=== PATIENT | female | born 1955 | race American Indian/Alaskan Native ===

== ENCOUNTER 2021-10-29 13:43 | Inpatient (IN) | payer SELFPAY ==
[2021-10-29] MEDS ORDERED: LIP THERAPY VASELINE TP PRN (14:29)
[2021-10-29] MEDS ORDERED: LACTATED RINGERS 1,000 ML IV ONE (14:32)
[2021-10-29] MEDS ORDERED: ROCURONIUM 50 MG/5 ML INJ IV ONE (14:32)
[2021-10-29] MEDS ORDERED: ETOMIDATE 20 MG/10 ML INJ IV ONE (14:32)
--- NOTE | 2021-10-29 14:38 | Emergency Department Report ---
ED CPR HPI - General Chief Complaint: Cardiac Arrest/CPR Stated Complaint: STEMI Time Seen by Provider: 10/29/21 14:28 Source: EMS (Verbal report received from emergency medical services. EMS documentation not available at time of chart dictation ), RN notes reviewed Mode of arrival: Stretcher Limitations: Altered Mental Status, Physical Limitation - History of Present Illness Initial Comments: The patient was evaluated in the emergency department for symptoms described in the history of present illness. He/she was evaluated in the context of the global COVID-19 pandemic, which necessitated consideration that the patient might be at risk for infection with the virus that causes COVID-19. Institutional protocols and algorithms that pertain to the evaluation of patients at risk for COVID-19 are in a state of rapid change based on information released by regulatory bodies including the CDC and federal and state organizations. These policies and algorithms were followed during the patient's care in the emergency department. Please note that these policies, procedures and recommendations changed on a rapid basis. The patient is a 66-year-old female. She is brought to the hospital by emergency medical services as an out of hospital cardiac arrest. History is obtained entirely from verbal report from EMS. As per verbal report from EMS, patient collapsed while she was at [facility]. It is not known if the patient was having any symptoms while at [facility]. EMS reports that bystanders started CPR. EMS reports that upon their initial arrival, the patient is not having a shockable rhythm, and is pulseless. A David airway is placed by EMS, she received aggressive CPR, standard ACLS medications, and has return of spontaneous circulation after around 5 to 7 minutes of initial ER resuscitation. EMS reports that post resuscitation, patient has a persistent coma, and she is biting on endotracheal tube, and they have started her on supplemental epinephrine for hemodynamic support. Upon arrival to this emergency room, the patient has a GCS of 3, is noted to be biting the endotracheal tube, his pupils that are midpoint and dilated. In addition, she has copious vomitus and gastric secretions in her oropharynx, mouth, and neck. The David airway is deflated, and removed. Patient noted to be biting down and clenching. She is placed on a nasal cannula at 15 L/min, and receives [id number]-nkib ventilation. She is induced with 20 mg of etomidate, and paralyzed with 100 mg of rocuronium. Video laryngoscopy is performed with a curved S4 video laryngoscope blade, and a 7.5 endotracheal tube was easily inserted into the trachea under direct visualization and without difficulty. Patient remains comatose at this time. No additional history is available at this time. MD Complaint: other (Patient collapsed while at [facility] as per verbal report from EMS) -: minute(s) Place: other Bystander CPR Performed: Yes AED Applied by Bystander/Electronics Lead: No Initial Findings in the Field: PEA Treatments Prior to Arrival: other airway device, chest compressions, epinephrine mgs # - Related Data Allergies Allergy/AdvReac Type Severity Reaction Status Date / Time No Known Allergies Allergy Verified 10/29/21 14:01 ED Review of Systems ROS: Stated complaint: STEMI Other details as noted in HPI Comment: Unobtainable due to pts medical conditions ED Past Medical Hx - Past Medical History Previous Medical History?: No - Surgical History Past Surgical History?: No - Social History Smoking Status: Unknown if ever smoked Substance Use Type: None ED Physical Exam - General Limitations: Altered Mental Status, Physical Limitation General appearance: obtunded, obese - Head Head exam: Present: atraumatic, normocephalic - Eye Eye exam: Present: other (Pupils are midpoint and do not react to light.) - ENT ENT exam: Present: normal exam, normal orophraynx, mucous membranes moist, normal external ear exam, other (Copious secretions noted in the oropharynx) - Neck Neck exam: Present: normal inspection - Respiratory Respiratory exam: Present: respiratory distress, rhonchi - Cardiovascular Cardiovascular Exam: Present: tachycardia, JVD. Absent: bradycardia, rubs, gallop - GI/Abdominal GI/Abdominal exam: Present: soft. Absent: distended, tenderness, guarding, rebound, rigid, pulsatile mass - Rectal Rectal exam: Present: normal inspection - External exam: Present: normal external exam - Extremities Exam Extremities exam: Present: normal inspection, other (1+ femoral pulses noted in the bilateral upper and lower extremities. 1+ radial pulses noted in the bilateral upper and lower extremities. There is no long bony tenderness. The muscular compartments are soft. The pelvis is stable.). Absent: tenderness - Back Exam Back exam: Present: normal inspection. Absent: tenderness, CVA tenderness (R), CVA tenderness (L), paraspinal tenderness, vertebral tenderness - Neurological Exam Neurological exam: Present: altered, other (GCS of 3) - Psychiatric Psychiatric exam: Present: normal affect, normal mood - Skin Skin exam: Present: warm, dry, intact, normal color. Absent: rash ED Course Vital Signs 10/29/21 10/29/21 10/29/21 14:03 14:22 14:30 Pulse Rate 130 H 122 H Respiratory 16 Rate Blood Pressure 166/114 Blood Pressure 113/53 [Left] O2 Sat by Pulse 96 97 96 Oximetry - Reevaluation(s) Reevaluation #1: 10/29/21 15:41 Differential diagnosis, including but not limited to: Acute coronary syndrome, pulmonary embolism, intracranial hemorrhage, electrolyte derangement, thyroid derangement, pneumonia, urinary tract infection Assessment and plan: 66-year-old female status post out of hospital cardiac arrest with return of spontaneous circulation, and a persistent, with a GCS of 3, although biting at endotracheal tube prior to paralysis. This hospital does not have a postarrest hypothermia protocol. Laboratory studies pending. Leukocytosis may be a stress reaction, but uncertain if infectious and pathology. Patient will be treated with broad-spectrum antibiotics empirically, will receive 30 cc/kg bolus of lactated Ringer's calculated for ideal body weight given that this patient is morbidly obese. CT scan of the brain, cervical spine and chest have been obtained, and results are pending. Patient will be maintained on vasopressor support. Critical care physician, Dr. Hunter will follow in consultation. Discussed the patient's history, physical, laboratory studies and imaging studies and overall clinical impression and plan of care. We will admit patient to the medical service once her initial diagnostic work-up has been completed, presuming we do not detect a condition that would require transfer for services not available at this facility. Reevaluation #2: 10/29/21 15:45 151 lbs [place] Body Weight Equivalent to 68 kg Actual body weight is 165% (1.6x) ideal body weight 10/29/21 16:16 Lactic acidosis appreciated. Elevated troponin is likely a type II troponin leak. CT scan of the brain and cervical spine negative for acute findings. Hospital physician, Dr. Smith to admit patient to the ICU. 10/29/21 16:25 2 sisters at the bedside. They advised that this patient has a history of hypertension, is visiting from [place], and is COVID-19 vaccinated. They reports that the patient has no allergies to medicines. They are updated on the patient's prognosis and plan of care. They are currently at the bedside. They have articulated understanding 10/29/21 17:10 Hypokalemia will be addressed. We will withhold insulin therapy for hyperglycemia, given hypokalemia. Transaminitis is likely secondary to cardiac arrest. Synthetic function is preserved. Defer to inpatient team to further follow this up. - Central Line Placement Right IJ Consent Obtained: emergent situation (Emergency situation) Time Out Performed: Yes Patient Placed on Monitor/Pulse Ox: Yes MD Prep: mask, gown, gloves Central Line Prep: Chlorhexidine scrub Local Anesthesia Used: Lidocaine 1% Amount of Anesthesia Used (mls): 4 Ultrasound Used for Placement: Yes Central Line Lumen Inserted: triple Reason for Insertion: High Alert Medication Bloods Obtained for Lab: Yes Central Line Position: good blood return, all ports aspirated, flus, sutured in place with 2-0 Dressing Applied: Tegaderm Post Procedure X-Ray: other (X-ray of the chest shows no pneumothorax, but unusual position of catheter tip. Subsequent CT of the chest confirms appropriate catheter position) Patient Tolerated Procedure: well Complications: none Additional Comments: Patient prepped and draped in typical maximal sterile fashion. Using ultrasound guidance, right-sided internal jugular vein is cannulated with an 18-gauge needle, with 3 inch plastic catheter, guidewire, 0.032 x 60 cm, J-tip with a 3 mm radius is then inserted into the guiding catheter, and appropriate luminal placement is confirmed with real-time fqcoc-to-yawm ultrasound guidance. A stab incision is made with an 11-gauge blade, and then incision is dilated. The 7 [place] triple-lumen catheter has each of the 3 ports flushed with sterile saline in advance of placement. Then, a 7 [place] triple-lumen catheter is inserted over the guidewire, and sutured to the skin. Real-time ultrasound guidance confirms appropriate luminal placement. Ports are aspirated easily, and flushed easily. Blue Biopatch is then affixed to the skin, and Tegaderm is applied to the skin. This patient tolerated the procedure well, and without obvious complication. Blood loss estimated at less than 50 cc. While initial chest x-ray suggested unusual position of the central line, CT of the chest confirmed appropriate placement in the SVC. This is received from verbal communication from the interpreting radiologist. No untoward complications were noted.. - Intubation Time Out Performed: No (Emergency situation) Sedative: Etomidate Mg Given: 20 Paralytic: Rocuronium Mg Given: 100 Laryngoscope: fiberoptic video scope Size: 4 Assist Device Used: fiberoptic device ET Tube Size: 7.5 Tube Secured Depth (cm): 23 Tube Secured Location: teeth Tube Placement Confirmation: visualized tube passing t, equal breath sounds bilat, no breath sounds over epi, confirmation by capnometr Patient Tolerated Procedure: well Intubation Complications: none Additional Comments: Patient placed on nasal cannula at 15 L/min. Receives [id number]-kntmq-[id number] ventilation. She presents with evidence of aspiration which is present on arrival, manifest by copious oral secretion in the oropharynx and mouth. She is aggressively suctioned, and under direct visualization, a 7.5 endotracheal tube is easily inserted into the trachea without difficulty. ED Medical Decision Making - Lab Data Result diagrams: 10/29/21 15:10 10/29/21 15:10 Vital Signs 10/29/21 10/29/21 14:03 14:22 Pulse Rate 130 H Respiratory 16 Rate Blood Pressure 113/53 [Left] O2 Sat by Pulse 96 97 Oximetry Rectal temperature 98 degrees Lab Results 10/29/21 10/29/21 10/29/21 Range/Units 15:10 15:10 15:10 WBC 27.8 H (4.5-11.0) K/mm3 RBC 5.02 (3.65-5.03) M/mm3 Hgb 13.4 (10.1-14.3) gm/dl Hct 42.1 (30.3-42.9) % MCV 84 (79-97) fl MCH 27 L (28-32) pg MCHC 32 (30-34) % RDW 15.1 (13.2-15.2) % Plt Count 291 (140-440) K/mm3 PT 13.6 (12.2-14.9) Sec. INR 0.94 (0.87-1.13) Plasma/Serum Alcohol < 0.01 (0-0.07) % - EKG Data -: EKG Interpreted by Vt EKG shows normal: sinus rhythm Rate: tachycardia - EKG Data When compared to previous EKG there are: previous EKG unavailable 10/29/21 15:43 EKG #2 is interpreted at 14: 48 This is a sinus tachycardia, with a rate of 143 bpm. There is a left axis deviation. There are PVCs noted. The QTC is 494 ms. There appears to be a normal P wave axis. May have intermittent runs of ectopic atrial tachycardia simultaneously. This is not a STEMI - Radiology Data Radiology results: pending, report reviewed, image reviewed [address] [address] XRay Report Signed Patient: WALLACE ISAAC MR#: [id number] : 09/14/1995 Acct:[id number] Age/Sex: 26 / F ADM Date: 10/29/21 Loc: ED Attending Dr: Ordering Physician: PRATEEK GALLO MD Date of Service: 10/29/21 Procedure(s): XR chest 1V ap Accession Number(s): [id number] cc: PRATEEK GALLO MD Fluoro Time In Minutes: CHEST 1 VIEW 10/29/2021 2:16 PM INDICATION / CLINICAL INFORMATION: Dyspnea. COMPARISON: 08/21/20, 02/28/20, and 02/19/20 FINDINGS: SUPPORT DEVICES: None. HEART / MEDIASTINUM: No change in the marked enlargement of the cardiac silhouette. Mild pulmonary venous vascular congestion. LUNGS / PLEURA: No significant pulmonary or pleural abnormality. No pneumothorax. ADDITIONAL FINDINGS: No significant additional findings. IMPRESSION: 1. Stable marked cardiomegaly part of which may represent pericardial effusion. Mild pulmonary venous vascular congestion. No overt pulmonary edema. Signer Name: Angel Dudley MD Signed: 10/29/2021 2:56 PM Workstation Name: [id number] Transcribed By: DT Dictated By: Davonte Dudley MD Electronically Authenticated By: Davonte Dudley MD Signed Date/Time: 10/29/21 1456 DD/ [address] [address] Cat Scan Report Signed Patient: DUNG TOBIN MR#: [id number] : 1955 Acct:[id number] Age/Sex: 66 / F ADM Date: 10/29/21 Loc: ED Attending Dr: Order ing Physician: PRATEEK GALLO MD Date of Service: 10/29/21 Procedure(s): CT angio chest Accession Number(s): [id number] cc: PRATEEK GALLO MD CTA CHEST WITH CONTRAST INDICATION / CLINICAL INFORMATION: cardiac arrest. TECHNIQUE: Axial CT images were obtained through the chest after injection of 85 mL Omnipaque 350 IV contrast. 3 plane MIP and/or 3D reconstructions were produced. All CT scans at this location are performed using CT dose reduction for ALARA by means of automated exposure control. COMPARISON: Chest radiograph earlier on the same date. FINDINGS: Quality of the study is fair due to suboptimal contrast enhancement of the pulmonary arteries. PULMONARY EMBOLUS: None. THORACIC AORTA: No significant abnormality. HEART: Mildly enlarged. CORONARY ARTERY CALCIFICATION: Absent -- None. MEDIASTINUM / ASHLEY: Right jugular central line is present in the superior vena cava. Endotracheal and esophagogastric tubes are in expected position. PLEURA: No pleural effusion. No pneumothorax. LUNGS: Patchy airspace consolidation in the superior segment of the right lower lobe, superior segment of the left lower lobe, and posterior segment of the left upper lobe is better seen on CT. ADDITIONAL FINDINGS: None. UPPER ABDOMEN: Bilateral nonobstructing intrarenal stones. SKELETAL STRUCTURES: No significant osseous abnormality. IMPRESSION: 1. No CT evidence for pulmonary embolism. 2. Bilateral airspace consolidation which may represent pneumonia, possibly aspiration. Signer Name: Angel Dudley MD Signed: 10/29/2021 3:44 PM Workstation Name: [id number] Transcribed By: MINDY Dictated By: Davonte Dudley MD Electronically Authenticated By: Davonte Dudley MD Signed Date/Time: 10/29/21 1544 DD/ [address] SCAN OF THE HEAD: INDICATION / CLINICAL INFORMATION: 66 years Female; Altered Mental Status. TECHNIQUE: Routine CT head without contrast. All CT scans at this location are performed using CT dose reduction for ALARA by means of automated exposure control. COMPARISON: None. FINDINGS: BRAIN / INTRACRANIAL CONTENTS: No acute hemorrhage, mass effect, midline shift, hydrocephalus, or acute, large territorial infarct. No chronic infarct or encephalomalacia. Normal brain volume and ventricular/sulcal size for age. Low- attenuation white matter lesions in both cerebral hemispheres probably due to chronic small vessel disease. Brainstem and cerebellar hemispheres are normal. CRANIOCERVICAL JUNCTION: No significant abnormality. ORBITS: No significant abnormality of visualized orbits. SINUSES / MASTOIDS: No significant abnormality of the visualized paranasal sinuses or mastoid air cells. ADDITIONAL FINDINGS: None. IMPRESSION: No acute focal parenchymal lesion in the brain Signer Name: Evette Gomez MD Signed: 10/29/2021 3:00 PM Workstation Name: [id number] Exam: CT cervical spine History: ams; Technique: Contiguous thin cut axial images obtained through the cervical spine. Sagittal and coronal reconstructions performed by the technologist. All CT scans at this location are performed using CT dose reduction for ALARA by means of automated exposure control. Findings: No priors. There is no evidence of fracture or traumatic subluxation. Vertebral bodies are normal in height and alignment. Intervertebral disc spaces are well-maintained. No significant degenerative change seen in the uncinate or facet joints. No significant canal stenosis or osseous foraminal narrowing. Surrounding soft tissues are grossly normal. Impression: No signs of acute bony trauma to the cervical spine. Signer Name: Evette Cramer MD Signed: 10/29/2021 3:03 PM Workstation Name: [id number] Critical Care Time: Yes Critical care time in (mins) excluding proc time.: 74 Critical care attestation.: If time is entered above; I have spent that time in minutes in the direct care of this critically ill patient, excluding procedure time. ED Disposition Clinical Impression: Cardiac arrest, SIRS (systemic inflammatory response syndrome), Aspiration pneumonitis, Hypokalemia, Transaminitis Disposition: 09 ADMITTED INPATIENT Is pt being admited?: Yes Condition: Critical
--- NOTE | 2021-10-29 15:25 | XRay Report ---
CHEST 1 VIEW 10/29/2021 2:35 PM INDICATION / CLINICAL INFORMATION: ETT placement. COMPARISON: None available. FINDINGS: SUPPORT DEVICES: Endotracheal tube has been placed with the tip 3.9 cm above the vikas. Esophagogast zion tube has been placed with the tip in the proximal stomach. Right jugular central line has been pl aced with the tip projecting over the superior SVC directed toward the midline. HEART / MEDIASTINUM: Heart is upper normal size. Bilateral pulmonary artery enlargement. LUNGS / PLEURA: No significant pulmonary or pleural abnormality. No pneumothorax. ADDITIONAL FINDINGS: No significant additional findings. IMPRESSION: 1. Endotracheal tube in expected position. Esophagogastric tube in expected position. 2. Right jugular central line with the tip directed toward the midline. Exact location is uncertain. IMPORTANT FINDING: Central line Time of Communication (IT SERVICE TECHNICIAN/CDT): 2:20 PM Licensed Practitioner Receiving Report: Dr. Newberry in the ED Signer Name: Angel Dudley MD Signed: 10/29/2021 3:21 PM Workstation Name: [id number]
[2021-10-29 15:26] LABS: Hematocrit 42.1 % (30.3-42.9); Hemoglobin 13.4 gm/dl (10.1-14.3); Mean Corpuscular HGB Conc 32 % (30-34); Mean Corpuscular Volume 84 fl (79-97); Platelet Count 291 K/mm3 (140-440); Red Blood Count 5.02 M/mm3 (3.65-5.03); Red Cell Distribution Width 15.1 % (13.2-15.2)
[2021-10-29 15:42] LABS: INR 0.94 (0.87-1.13)
[2021-10-29 15:43] LABS: Partial Thromboplastin Time 31.5 Sec. (24.2-36.6)
[2021-10-29] MEDS ORDERED: LACTATED RINGERS 1,040 ML IV ONE (15:45)
[2021-10-29] MEDS ORDERED: CEFEPIME/NS 1 GM/100 ML 1 GM/100 ML BAG IV ONE (15:45)
[2021-10-29] MEDS ORDERED: VANCOMYCIN/NS 1 GM/250 ML 1 GM/250 ML BAG IV ONE (15:45)
--- NOTE | 2021-10-29 15:49 | Cat Scan Report ---
CTA CHEST WITH CONTRAST INDICATION / CLINICAL INFORMATION: cardiac arrest. TECHNIQUE: Axial CT images were obtained through the chest after injection of 85 mL Omnipaque 350 IV contrast. 3 plane MIP and/or 3D reconstructions were produced. All CT scans at this location are perf ormed using CT dose reduction for ALARA by means of automated exposure control. COMPARISON: Chest radiograph earlier on the same date. FINDINGS: Quality of the study is fair due to suboptimal contrast enhancement of the pulmonary arteri es. PULMONARY EMBOLUS: None. THORACIC AORTA: No significant abnormality. HEART: Mildly enlarged. CORONARY ARTERY CALCIFICATION: Absent -- None. MEDIASTINUM / ASHLEY: Right jugular central line is present in the superior vena cava. Endotracheal and esophagogastric tubes are in expected position. PLEURA: No pleural effusion. No pneumothorax. LUNGS: Patchy airspace consolidation in the superior segment of the right lower lobe, superior segmen t of the left lower lobe, and posterior segment of the left upper lobe is better seen on CT. ADDITIONAL FINDINGS: None. UPPER ABDOMEN: Bilateral nonobstructing intrarenal stones. SKELETAL STRUCTURES: No significant osseous abnormality. IMPRESSION: 1. No CT evidence for pulmonary embolism. 2. Bilateral airspace consolidation which may represent pneumonia, possibly aspiration. Signer Name: Angel Dudley MD Signed: 10/29/2021 3:44 PM Workstation Name: [id number]
[2021-10-29] MEDS: fentaNYL DRIP Premix 2,000 MCG/100 ML BAG IV SCH (15:57)
--- NOTE | 2021-10-29 16:04 | Cat Scan Report ---
NONENHANCED CT SCAN OF THE HEAD: INDICATION / CLINICAL INFORMATION: 66 years Female; Altered Mental Status. TECHNIQUE: Routine CT head without contrast. All CT scans at this location are performed using CT dos e reduction for ALARA by means of automated exposure control. COMPARISON: None. FINDINGS: BRAIN / INTRACRANIAL CONTENTS: No acute hemorrhage, mass effect, midline shift, hydrocephalus, or acu te, large territorial infarct. No chronic infarct or encephalomalacia. Normal brain volume and ventri cular/sulcal size for age. Low-attenuation white matter lesions in both cerebral hemispheres probably due to chronic small vessel disease. Brainstem and cerebellar hemispheres are normal. CRANIOCERVICAL JUNCTION: No significant abnormality. ORBITS: No significant abnormality of visualized orbits. SINUSES / MASTOIDS: No significant abnormality of the visualized paranasal sinuses or mastoid air nehemias ls. ADDITIONAL FINDINGS: None. IMPRESSION: No acute focal parenchymal lesion in the brain Signer Name: Evette Gomez MD Signed: 10/29/2021 4:00 PM Workstation Name: [id number]
--- NOTE | 2021-10-29 16:08 | Cat Scan Report ---
Exam: CT cervical spine History: ams; Technique: Contiguous thin cut axial images obtained through the cervical spine. Sagittal and bowman l reconstructions performed by the technologist. All CT scans at this location are performed using CT dose reduction for ALARA by means of automated exposure control. Findings: No priors. There is no evidence of fracture or traumatic subluxation. Vertebral bodies are normal in height and alignment. Intervertebral disc spaces are well-maintained. No significant degenerative change seen in the uncinate or facet joints. No significant canal stenosi s or osseous foraminal narrowing. Surrounding soft tissues are grossly normal. Impression: No signs of acute bony trauma to the cervical spine. Signer Name: Evette Gomez MD Signed: 10/29/2021 4:03 PM Workstation Name: [id number]
[2021-10-29] MEDS: fentaNYL 100 MCG/2 ML INJ IV PRN (16:23)
[2021-10-29 16:30] LABS: Albumin 4.3 g/dL (3.9-5); Calcium 9.6 mg/dL (8.4-10.2)
[2021-10-29 16:41] LABS: ABG Base Excess -2.9 mmol/L (-2.0-3.0); ABG HCO3 23.8 mmol/L (20.0-26.0); ABG Methemoglobin 0.6 % (0.0-1.5); ABG Oxygen Saturation 90.8 % (95.0-99.0); ABG PCO2 48.8 mm Hg; ABG PH 7.307 pH Units (7.350-7.450); ABG PO2 64.1 mm Hg (80.0-90.0)
[2021-10-29 16:47] LABS: Band Neutrophils # (Manual) 1.4 K/mm3; Basophils % (Manual) 0 % (0.0-1.8); Eosinophils % (Manual) 0 % (0.0-4.3); Platelet Estimate Consistent w Auto; Total Cells Counted 100
[2021-10-29 16:48] LABS: Ovalocytes Few
[2021-10-29 16:50] LABS: Poikilocytosis 1+
[2021-10-29] MEDS: NORepinephrine/NS 8 MG-250 ML 8 MG/250 ML INFUS..BTL IV SCH (17:01)
--- NOTE | 2021-10-29 17:03 | History and Physical Report ---
History of Present Illness Chief complaint: Unresponsive History of present illness: 66 YO Female with Obesity presents to ED for evaluation. Patient is intubated and on ventilatory support at the time my evaluation is unable to provide history. Patient history taken EMS staff, ED staff, as well as patient family w austyn was made available by telephone for interview. As per family the patient was attending [facility] services when the patient collapsed and lost consciousness. Witnesses began CPR. EMS was notified and upon arrival the patient was found to be in distress without perfusing cardiac rhythm. Patient initiated on ACLS protocol and subsequently intubated in the field and subsequent transported to [facility] for further care and evaluation of the aforementioned symptoms. The patient regained spontaneous circulation during transport. Patient seen and evaluated upon arrival and found to have acute hypoxemic respiratory failure, septic shock suspected secondary to aspiration pneumonia, metabolic acidosis, toxic metabolic encephalopathy, shock liver, and cardiac arrest with return of perfusing cardiac rhythm after initiation of ACLS protocol. Patient initiated on sepsis protocol as well as pneumonia protocol. Patient admitted to ICU. Critical care team consulted in ED. No further history is obtainable. No reports of fever, chills, chest pain, palpitation, productive cough, skin rash, recent contact, known exposure to COVID-19. No prior admission for review. No medication listed at time of admission for reconciliation. Advanced care planning conducted in ED. Past History Past Medical History: other (See HPI) Past Surgical History: No surgical history, Other (Unable to obtain) Social history: single. denies: smoking, alcohol abuse, prescription drug abuse Family history: diabetes, hypertension Medications and Allergies Allergies Allergy/AdvReac Type Severity Reaction Status Date / Time No Known Allergies Allergy Verified 10/29/21 14:01 Active Meds: Active Medications Famotidine (Famotidine 20 Mg/2 Ml Inj) 20 mg IV BID RAMON Fentanyl (Fentanyl 100 Mcg/2 Ml Inj) 50 mcg IV Q10MIN PRN PRN Reason: ANALGESIA Last Admin: 10/29/21 16:23 Dose: 50 mcg Hydrophilic Ointment (Lip Therapy Vaseline) 1 applic TP Q2HR PRN PRN Reason: Dry Lips Fentanyl Citrate (Fentanyl Drip Premix) 2,000 mcg in 100 mls @ 5.67 mls/hr IV TITR RAMON; Protocol Last Admin: 10/29/21 15:57 Dose: 1 mcg/kg/hr, 5.67 mls/hr NORepinephrine/NS 8 MG-250 ML (Norepinephrine/Ns 8 Mg-250 Ml (Double Conc)) 8 mg in 250 mls @ 3.75 mls/hr IV TITRATE RAMON; Protocol Vancomycin HCl (Vancomycin/Ns 1 Gm/250 Ml) 1 gm in 250 mls @ 167.007 mls/hr IV ONCE ONE; Protocol Stop: 10/29/21 17:14 Potassium Chloride (Kcl 10meq/100ml) 10 meq in 100 mls @ 100 mls/hr IV Q1H RAMON Stop: 10/29/21 20:59 Multi-Ingred Cream/Lotion/Oil/Oint (Mineral Oil/Petrolatum, White Ophth Oint 3.5 Gm) 1 applic OU Q4HR PRN PRN Reason: Dry Eye(s) Senna/Docusate Sodium (Sennosides/Docusate Sodium 8.6/50 Mg Tab) 1 tab FEEDTUBE BID RAMON Review of Systems ROS unobtainable: due to endotracheal tube, due to mental status Exam - Constitutional Vitals: Temp Pulse Resp BP Pulse Ox 122 H 16 166/114 96 10/29/21 14:30 10/29/21 14:22 10/29/21 14:30 10/29/21 14:30 General appearance: Present: severe distress - EENT Eyes: Present: miosis ENT: hearing decreased - Neck Neck: Present: supple, normal ROM - Respiratory Respiratory effort: labored Respiratory: bilateral: diminished, rhonchi - Cardiovascular Heart Sounds: Present: S1 & S2. Absent: rub, click - Extremities Extremity abnormal: edema Peripheral Pulses: abnormal (Capillary refill greater than 3.5 seconds) - Abdominal General gastrointestinal: Present: soft, non-tender, non-distended - Integumentary Integumentary: Present: clear, warm, dry - Musculoskeletal Musculoskeletal: generalized weakness - Psychiatric Psychiatric: no appropriate mood/affect, no intact judgment & insight, no memory intact - Neurologic Neurologic: CNII-XII intact, no focal deficits, no gait normal HEART Score - HEART Score Troponin: Troponin T 0.089 ng/mL (0.00-0.029) H 10/29/21 15:10 Results - Labs CBC & Chem 7: 10/29/21 15:10 10/29/21 15:10 Labs: Abnormal lab results 10/29/21 10/29/21 10/29/21 Range/Units 15:10 15:10 15:10 WBC 27.8 H (4.5-11.0) K/mm3 MCH 27 L (28-32) pg Seg Neuts % (Manual) 78.0 H (40.0-70.0) % Lymphocytes % (Manual) 10.0 L (13.4-35.0) % Seg Neutrophils # Man 21.7 H (1.8-7.7) K/mm3 Monocytes # (Manual) 1.4 H (0.0-0.8) K/mm3 ABG pH (7.350-7.450) pH Units ABG pO2 (80.0-90.0) mm Hg ABG O2 Saturation (95.0-99.0) % ABG Base Excess (-2.0-3.0) mmol/L Oxyhemoglobin (95.0-99.0) % Sodium (137-145) mmol/L Potassium (3.6-5.0) mmol/L Chloride (98-107) mmol/L Carbon Dioxide (22-30) mmol/L Glucose (65-100) mg/dL Lactic Acid 6.80 H* (0.7-2.0) mmol/L AST (5-40) units/L ALT (7-56) units/L Alkaline Phosphatase (35-129) units/L Troponin T 0.089 H (0.00-0.029) ng/mL Salicylates (2.8-20.0) mg/dL Acetaminophen (10.0-30.0) ug/mL 10/29/21 10/29/21 10/29/21 Range/Units 15:10 15:10 15:10 WBC (4.5-11.0) K/mm3 MCH (28-32) pg Seg Neuts % (Manual) (40.0-70.0) % Lymphocytes % (Manual) (13.4-35.0) % Seg Neutrophils # Man (1.8-7.7) K/mm3 Monocytes # (Manual) (0.0-0.8) K/mm3 ABG pH (7.350-7.450) pH Units ABG pO2 (80.0-90.0) mm Hg ABG O2 Saturation (95.0-99.0) % ABG Base Excess (-2.0-3.0) mmol/L Oxyhemoglobin (95.0-99.0) % Sodium 136 L (137-145) mmol/L Potassium 2.8 L* (3.6-5.0) mmol/L Chloride 93.4 L (98-107) mmol/L Carbon Dioxide 20 L (22-30) mmol/L Glucose 330 H (65-100) mg/dL Lactic Acid (0.7-2.0) mmol/L AST 1013 H (5-40) units/L ALT 1289 H (7-56) units/L Alkaline Phosphatase 246 H (35-129) units/L Troponin T (0.00-0.029) ng/mL Salicylates < 0.3 L (2.8-20.0) mg/dL Acetaminophen 5.0 L (10.0-30.0) ug/mL 10/29/21 Range/Units 16:01 WBC (4.5-11.0) K/mm3 MCH (28-32) pg Seg Neuts % (Manual) (40.0-70.0) % Lymphocytes % (Manual) (13.4-35.0) % Seg Neutrophils # Man (1.8-7.7) K/mm3 Monocytes # (Manual) (0.0-0.8) K/mm3 ABG pH 7.307 L (7.350-7.450) pH Units ABG pO2 64.1 L (80.0-90.0) mm Hg ABG O2 Saturation 90.8 L (95.0-99.0) % ABG Base Excess -2.9 L (-2.0-3.0) mmol/L Oxyhemoglobin 89.3 L (95.0-99.0) % Sodium (137-145) mmol/L Potassium (3.6-5.0) mmol/L Chloride (98-107) mmol/L Carbon Dioxide (22-30) mmol/L Glucose (65-100) mg/dL Lactic Acid (0.7-2.0) mmol/L AST (5-40) units/L ALT (7-56) units/L Alkaline Phosphatase (35-129) units/L Troponin T (0.00-0.029) ng/mL Salicylates (2.8-20.0) mg/dL Acetaminophen (10.0-30.0) ug/mL Assessment and Plan - Patient Problems (1) Septic shock Current Visit: Yes Status: Acute Plan to address problem: Sepsis protocol: CBC, CMP, chest x-ray, urinalysis IV fluid resuscitation therapy, IV antibiotic therapy, IV pressor support, maintain mean arterial pressure greater than or equal to 65, titrate pressors to affect, monitor fluid balance, blood culture, The high probability of a clinically significant, sudden or life threatening deterioration of the [cardiac, pulmonary, renal, neuro, ID] system(s) required my full and direct attention, intervention and personal management. The aggregate critical care time was [95] minutes. This time is in addition to time spent performing reported procedures but includes the following: [x] Data Review and interpretation [x] Patient assessment and monitoring of vital signs [x] Documentation [x] Medication orders and management (2) Aspiration pneumonia Current Visit: Yes Status: Acute Plan to address problem: Pneumonia protocol: Chest x-ray, CBC, CMP, supplemental oxygen, pulse oximetry, nebulizer therapy, blood culture, IV antibiotic therapy (3) Acute hypoxemic respiratory failure Current Visit: Yes Status: Acute Plan to address problem: Patient intubated and on ventilatory support, wean vent as tolerated, daily spontaneous breathing trial, sedation holiday, daily ABG (4) Toxic metabolic encephalopathy Current Visit: Yes Status: Acute Plan to address problem: CT head, treat sepsis, supportive care. (5) Metabolic acidosis Current Visit: Yes Status: Acute Plan to address problem: IV fluid resuscitation therapy, BMP, repeat BMP in a.m., serial lactic acid level. (6) Shock liver Current Visit: Yes Status: Acute Plan to address problem: Supportive care, repeat CMP in a.m., IV fluid resuscitation therapy. (7) DVT prophylaxis Current Visit: Yes Status: Acute Plan to address problem: SCD to bilateral lower extremities while in bed (8) Obesity hypoventilation syndrome Current Visit: Yes Status: Acute Plan to address problem: Balanced diet, increase physical activity discharge, outpatient pulmonary follow-up for sleep study. (9) Cardiac arrest Current Visit: No Status: Acute Plan to address problem: Patient treated" with ACLS protocol with return of perfusing cardiac rhythm. Patient currently being treated with IV pressor support. Supportive care. (10) Advance care planning Current Visit: Yes Status: Acute Plan to address problem: Disease education conducted, care plan discussed, diagnoses discussed, prognosis discussed, patient is full code. Patient daughter Eva Brown informed of patient prognosis. [phone]. Admitting diagnoses discussed, prognosis discussed. Patient and family informed of care plan. Patient daughter acknowledges understanding and agreement with care plan, +30 minutes.
[2021-10-29] MEDS ORDERED: HYDROmorphone 1 MG/1 ML INJ IV PRN ×2 (17:04)
[2021-10-29] MEDS ORDERED: oxyCODONE /ACETAMINOPHEN 5-325MG TAB PO PRN (17:04)
[2021-10-29] MEDS ORDERED: SODIUM CHLORIDE 0.9% 1000 ML IV SOLN IV ONE (17:04)
[2021-10-29] MEDS ORDERED: ACETAMINOPHEN 650 MG RECT SUPP PR PRN (17:04)
[2021-10-29] MEDS: POTASSIUM CHLORIDE 10 MEQ 10 MEQ/100 ML BAG IV SCH ×2 (17:11→18:00)
[2021-10-29] MEDS: FAMOTIDINE 20 MG/2 ML INJ IV SCH (17:27)
[2021-10-29] MEDS ORDERED: LORazepam 100 MG in SODIUM CHLORIDE 0.9% 50 ML, EMPTY BAG 0 ML IV SCH (18:00)
[2021-10-29] MEDS: LORazepam 2 MG/ML VIAL IV PRN ×2 (18:15→23:07)
[2021-10-29 19:03] LABS: Bilirubin,Urine NEG (Negative); Blood,Urine MOD (Negative); Color,Urine Straw (Yellow); Mucus,Urine FEW /HPF; Urobilinogen,Urine < 2.0 mg/dL (<2.0)
[2021-10-29 19:04] LABS: Amphetamine Screen,Urine Negative; Benzodiazepines Screen,Urine Negative; Cannabinoid Screen,Urine Negative; Cocaine Screen,Urine Negative; Methadone Screen,Urine Negative; Opiate Screen,Urine Negative
[2021-10-29] MEDS: SENNOSIDES/DOCUSATE SODIUM 8.6/50 MG TAB FEEDTUBE SCH (20:35)
[2021-10-29] MEDS: metroNIDAZOLE/NS 500 MG/100 ML 500 MG/100 ML BAG IV SCH (20:55)
[2021-10-29 21:25] LABS: Chol/HDL Ratio 1.96 %
[2021-10-29] MEDS: cefTRIAXone/NS 2 GM/100 ML 2 GM/100 ML BAG IV SCH (22:05)
[2021-10-29] MEDS: AZITHROMYCIN/NS 500 MG/250 ML 500 MG/250 ML BAG IV SCH (22:46)
[2021-10-30] MEDS: POTASSIUM CHLORIDE 10 MEQ 10 MEQ/100 ML BAG IV SCH ×2 (00:04→01:54)
[2021-10-30] MEDS ORDERED: MIDAZOLAM 5 MG/5 ML INJ MDV IV ONE ×2 (00:24→05:00)
[2021-10-30] MEDS ORDERED: ETOMIDATE 20 MG/10 ML INJ IV ONE ×2 (00:24→05:00)
[2021-10-30] MEDS ORDERED: ROCURONIUM 50 MG/5 ML INJ IV ONE ×2 (00:24→05:00)
[2021-10-30] MEDS: metroNIDAZOLE/NS 500 MG/100 ML 500 MG/100 ML BAG IV SCH (02:03)
[2021-10-30 04:42] LABS: ABG PCO2 34.1 mm Hg; ABG PH 7.412 pH Units (7.350-7.450); ABG PO2 69.5 mm Hg (80.0-90.0)
[2021-10-30 04:43] LABS: ABG Base Excess -2.7 mmol/L (-2.0-3.0); ABG HCO3 21.2 mmol/L (20.0-26.0); ABG Methemoglobin 0.3 % (0.0-1.5); ABG Oxygen Saturation 95.6 % (95.0-99.0)
[2021-10-30] MEDS: fentaNYL DRIP Premix 2,000 MCG/100 ML BAG IV SCH ×3 (04:59→23:09)
[2021-10-30] MEDS: FAMOTIDINE 20 MG/2 ML INJ IV SCH ×3 (05:03→21:11)
[2021-10-30] MEDS: SENNOSIDES/DOCUSATE SODIUM 8.6/50 MG TAB FEEDTUBE SCH ×3 (05:03→21:11)
[2021-10-30 05:26] LABS: Basophils % (Auto) 0.1 % (0.0-1.8); Eosinophils % (Auto) 0.1 % (0.0-4.3); Hemoglobin 10.8 gm/dl (10.1-14.3); Lymphocytes % (Auto) 6.2 % (13.4-35.0); Mean Corpuscular HGB Conc 31 % (30-34); Mean Corpuscular Volume 85 fl (79-97); Monocytes # (Auto) 0.9 K/mm3 (0.0-0.8); Monocytes % (Auto) 5.5 % (0.0-7.3); Platelet Count 202 K/mm3 (140-440); Red Blood Count 4.12 M/mm3 (3.65-5.03); Red Cell Distribution Width 15.5 % (13.2-15.2)
[2021-10-30 05:49] LABS: Albumin 3.2 g/dL (3.9-5); Calcium 7.9 mg/dL (8.4-10.2)
[2021-10-30] MEDS ORDERED: ENOXAPARIN 40 MG/0.4 ML INJ SUB-Q SCH (10:00)
[2021-10-30] MEDS: LORazepam 2 MG/ML VIAL IV PRN (10:45)
--- NOTE | 2021-10-30 11:00 | Event Note ---
Full consult dictated. Thank you
--- NOTE | 2021-10-30 11:13 | Procedure Note ---
Date of procedure: 10/30/21 Pre-op diagnosis: s/p Cardiac Arrest Post-op diagnosis: same Procedure: Right Internal Jugular Central Line Placement Patient was evaluated and required Central line placement due to pressor requirement Telephone consent obtained from patient's daughter, Eva Brown at [phone] A time-out was completed verifying correct patient, procedure, site, and positioning. Hand hygiene were performed immediately prior to the procedure and sterile technique was used throughout the procedure. The patient's right neck was prepped with chlorhexidine scrub then draped in a sterile fashion. 1% Lidocaine was used to anesthetize the surrounding skin area. Ultrasound was utilized to localize the right internal jugular vein without difficulty. Then the right internal jugular vein was accessed using ultrasound guidance and a triple lumen catheter was introduced using the Seldinger technique. The catheter threaded smoothly over the guidewire and advanced easily into the vein and brisk blood return was observed from each lumen. Each lumen were flushed and clamped, then the catheter was sutured in place, a Biopatch was placed at the insertion site, and covered with a sterile dressing. Patient tolerated the procedure well, no signs of any adverse reaction noted. Stat chest XR ordered. Total Time Spent with Patient (Minutes): 60 minutes Anesthesia: local Surgeon: SHAMEKA JOHNSTON Estimated blood loss: minimal Condition: critical Disposition: ICU
--- NOTE | 2021-10-30 11:18 | Progress Note ---
<SHAMEKA JOHNSTON - Last Filed: 10/30/21 16:41> Assessment and Plan Assessment and plan: This is a 66-year-old female with past medical history of HTN and Obesity admitted for septic shock, s/p cardiac arrest with ROSC in the field now intubated and on ventilatory support Hospital Course to Date: 10/30: Intubated and sedated, on fentanyl gtt. Open eyes spontaneously but does not follow any commands. On vasopressors, titrate as tolerated for MAP above 65. Patient febrile overnight, continue empiric IV Abx, culture data and COVID PCR pending. Patient is also s/p CT placement due to spontaneous pneumothorax. 2D echo is pending and Cardiology is consulted. Assessment and Plan #Acute Hypoxemic Respiratory Failure #Aspiration Pneumonia #Spontaneous Pneumothorax - Intubated in the filed post cardiac arrest on 10/29 - Vent Setting:PRVC-70%,8,22,500 - 10/30 s/p CT placement due to spontaneous pneumothorax - This Am ABG noted - CCM consulted, appreciate recommendations - VAP bundle addressed - Aspiration precaution HOB above 30 - Daily SBT and SAT trials as tolerated - Daily ABG and CXR - Continue SPO2 monitoring for SPO2 goal above 92% #Septic Shock 10/26 #Aspiration pneumonia #S/p Cardia Arrest with ROSC - s/p cardiac arrest with ROSC in the field - Presented febrile, hypotensive, with elevated lactic and WBCs - Now on vasopressors - Imagings suggesting possible aspiration pneumonia, no evidence of PE - UA is unremarkable - Urine, sputum, and blood culture pending - COVID PCR, CRP, and Procal pending - Continue empiric IV Abx for now - Continue blood pressure monitor per protocol - Titrate pressors for a MAP goal above 65 - 2D Echo pending - Cardiology is following #Elevated D-Dimer - [place] [id number] - CTA chest with no evidence of PE - BLE doppler ordered to r/o DVT #Acute Metabolic Encephalopathy - Intubated and sedated on fentanyl gtt - open eyes spontaneously, but does not follow commands - Titrate sedation for RASS goal of 0 to -1 - Avoid benzodiazepine to reduce the possibility of delirium - Prn analgesia for CPOT greater than 3 #Transaminitis #Shock liver - Most likely reactive s/p cardiac arrest - LFT down trending - Continue to trend LTFs #GI/DVT prophylaxis - Continue PPI- Pepcid - Lovenox SubQ Qday - SCD to bilateral lower extremities while in bed The high probability of a clinically significant, sudden or life threatening deterioration of the [multiple] system(s) required my full and direct attention, intervention and personal management. The aggregate critical care time was [60] minutes. This time is in addition to time spent performing reported procedures but includes the following: [x] Data Review and interpretation [x] Patient assessment and monitoring of vital signs [x] Documentation [x] Medication orders and management Disposition Plan: ICU Total Time Spent with Patient (Minutes): 60 History Interval history: Patient seen and examined at the bedside. Intubated and sedated on fentanyl gtt. Open eyes spontaneously but does not follow commands. On Levophed gtt. IAM overnight Hospitalist Physical - Constitutional Vitals: Temp Pulse Resp BP Pulse Ox 100.0 F H 94 H 22 91/59 100 10/30/21 08:00 10/30/21 10:00 10/30/21 10:00 10/30/21 10:00 10/30/21 10:00 General appearance: Present: no acute distress, obese, other (Intubated and Sedated) - EENT Eyes: Present: PERRL - Respiratory Respiratory effort: normal Respiratory: bilateral: rhonchi - Cardiovascular Rhythm: regular Heart Sounds: Present: S1 & S2 - Extremities Extremities: no ischemia, pulses intact, pulses symmetrical Extremity abnormal: edema - Peripheral Assessment Generalized Edema Type: Non-pitting Edema Degree: 1+ Capillary Refill: < 3 seconds Skin Temperature: Warm Peripheral Pulses: within normal limits - Abdominal General gastrointestinal: soft, non-distended, hypoactive bowel sounds - Integumentary Integumentary: Present: warm, dry - Psychiatric Psychiatric: other (Intubated and Sedated) - Neurologic Neurologic: other (Intubated and Sedated) - Allied Health Allied health notes reviewed: nursing HEART Score - HEART Score Troponin: Troponin T 1.150 ng/mL (0.00-0.029) H* D 10/29/21 22:34 Results - Labs CBC & Chem 7: 10/30/21 04:30 10/30/21 04:30 Labs: Laboratory Last Values WBC 16.2 K/mm3 (4.5-11.0) H 10/30/21 04:30 RBC 4.12 M/mm3 (3.65-5.03) 10/30/21 04:30 Hgb 10.8 gm/dl (10.1-14.3) 10/30/21 04:30 Hct 35.0 % (30.3-42.9) D 10/30/21 04:30 MCV 85 fl (79-97) 10/30/21 04:30 MCH 26 pg (28-32) L 10/30/21 04:30 MCHC 31 % (30-34) 10/30/21 04:30 RDW 15.5 % (13.2-15.2) H 10/30/21 04:30 Plt Count 202 K/mm3 (140-440) 10/30/21 04:30 Lymph % (Auto) 6.2 % (13.4-35.0) L 10/30/21 04:30 [place] % (Auto) 5.5 % (0.0-7.3) 10/30/21 04:30 Eos % (Auto) 0.1 % (0.0-4.3) 10/30/21 04:30 Baso % (Auto) 0.1 % (0.0-1.8) 10/30/21 04:30 Lymph # (Auto) 1.0 K/mm3 (1.2-5.4) L 10/30/21 04:30 [place] # (Auto) 0.9 K/mm3 (0.0-0.8) H 10/30/21 04:30 Eos # (Auto) 0.0 K/mm3 (0.0-0.4) 10/30/21 04:30 Baso # (Auto) 0.0 K/mm3 (0.0-0.1) 10/30/21 04:30 Add Manual Diff Complete 10/29/21 15:10 Total Counted 100 10/29/21 15:10 Seg Neutrophils % 88.1 % (40.0-70.0) H 10/30/21 04:30 Seg Neuts % (Manual) 78.0 % (40.0-70.0) H 10/29/21 15:10 Band Neutrophils % 5.0 % 10/29/21 15:10 Lymphocytes % (Manual) 10.0 % (13.4-35.0) L 10/29/21 15:10 Reactive Lymphs % (Man) 0 % 10/29/21 15:10 Monocytes % (Manual) 5.0 % (0.0-7.3) 10/29/21 15:10 Eosinophils % (Manual) 0 % (0.0-4.3) 10/29/21 15:10 Basophils % (Manual) 0 % (0.0-1.8) 10/29/21 15:10 Metamyelocytes % 2.0 % 10/29/21 15:10 Myelocytes % 0 % 10/29/21 15:10 Promyelocytes % 0 % 10/29/21 15:10 Blast Cells % 0 % 10/29/21 15:10 Nucleated RBC % Not Reportable 10/29/21 15:10 Seg Neutrophils # 14.2 K/mm3 (1.8-7.7) H 10/30/21 04:30 Seg Neutrophils # Man 21.7 K/mm3 (1.8-7.7) H 10/29/21 15:10 Band Neutrophils # 1.4 K/mm3 10/29/21 15:10 Lymphocytes # (Manual) 2.8 K/mm3 (1.2-5.4) 10/29/21 15:10 Abs React Lymphs (Man) 0.0 K/mm3 10/29/21 15:10 Monocytes # (Manual) 1.4 K/mm3 (0.0-0.8) H 10/29/21 15:10 Eosinophils # (Manual) 0.0 K/mm3 (0.0-0.4) 10/29/21 15:10 Basophils # (Manual) 0.0 K/mm3 (0.0-0.1) 10/29/21 15:10 Metamyelocytes # 0.6 K/mm3 10/29/21 15:10 Myelocytes # 0.0 K/mm3 10/29/21 15:10 Promyelocytes # 0.0 K/mm3 10/29/21 15:10 Blast Cells # 0.0 K/mm3 10/29/21 15:10 WBC Morphology Not Reportable 10/29/21 15:10 Hypersegmented Neuts Not Reportable 10/29/21 15:10 Hyposegmented Neuts Not Reportable 10/29/21 15:10 Hypogranular Neuts Not Reportable 10/29/21 15:10 Smudge Cells Not Reportable 10/29/21 15:10 Toxic Granulation Not Reportable 10/29/21 15:10 Toxic Vacuolation Not Reportable 10/29/21 15:10 Dohle Bodies Not Reportable 10/29/21 15:10 Pelger-Huet Anomaly Not Reportable 10/29/21 15:10 Manny Rods Not Reportable 10/29/21 15:10 Platelet Estimate Consistent w auto 10/29/21 15:10 Clumped Platelets Not Reportable 10/29/21 15:10 Plt Clumps, EDTA Not Reportable 10/29/21 15:10 Large Platelets Not Reportable 10/29/21 15:10 Giant Platelets Not Reportable 10/29/21 15:10 Platelet Satelliting Not Reportable 10/29/21 15:10 Plt Morphology Comment Not Reportable 10/29/21 15:10 RBC Morphology Not Reportable 10/29/21 15:10 Dimorphic RBCs Not Reportable 10/29/21 15:10 Polychromasia Not Reportable 10/29/21 15:10 Hypochromasia Not Reportable 10/29/21 15:10 Poikilocytosis 1+ 10/29/21 15:10 Anisocytosis Not Reportable 10/29/21 15:10 Microcytosis 1+ 10/29/21 15:10 Macrocytosis Not Reportable 10/29/21 15:10 Spherocytes Not Reportable 10/29/21 15:10 Pappenheimer Bodies Not Reportable 10/29/21 15:10 Sickle Cells Not Reportable 10/29/21 15:10 Target Cells Not Reportable 10/29/21 15:10 Tear Drop Cells Not Reportable 10/29/21 15:10 Ovalocytes Few 10/29/21 15:10 Helmet Cells Not Reportable 10/29/21 15:10 Maradiaga-Rowlett Bodies Not Reportable 10/29/21 15:10 [place] Rings Not Reportable 10/29/21 15:10 [place] Cells Not Reportable 10/29/21 15:10 Bite Cells Not Reportable 10/29/21 15:10 Crenated Cell Not Reportable 10/29/21 15:10 Elliptocytes Few 10/29/21 15:10 Acanthocytes (Spur) Not Reportable 10/29/21 15:10 Rouleaux Not Reportable 10/29/21 15:10 Hemoglobin C Crystals Not Reportable 10/29/21 15:10 Schistocytes Not Reportable 10/29/21 15:10 Malaria parasites Not Reportable 10/29/21 15:10 Magdy Bodies Not Reportable 10/29/21 15:10 Hem Pathologist Commnt No 10/29/21 15:10 PT 13.6 Sec. (12.2-14.9) 10/29/21 15:10 INR 0.94 (0.87-1.13) 10/29/21 15:10 APTT 31.5 Sec. (24.2-36.6) 10/29/21 15:10 ABG pH 7.412 pH Units (7.350-7.450) 10/30/21 04:35 ABG pCO2 34.1 mm Hg 10/30/21 04:35 ABG pO2 69.5 mm Hg (80.0-90.0) L 10/30/21 04:35 ABG HCO3 21.2 mmol/L (20.0-26.0) 10/30/21 04:35 ABG O2 Saturation 95.6 % (95.0-99.0) 10/30/21 04:35 ABG O2 Content 18.2 (0.0-44) 10/29/21 16:01 ABG Base Excess -2.7 mmol/L (-2.0-3.0) L 10/30/21 04:35 ABG Hemoglobin 12.0 gm/dl (12.0-16.0) 10/30/21 04:35 ABG Carboxyhemoglobin 0.6 % (0.0-5.0) 10/30/21 04:35 ABG Methemoglobin 0.3 % (0.0-1.5) 10/30/21 04:35 Oxyhemoglobin 94.7 % (95.0-99.0) L 10/30/21 04:35 FiO2 80 % 10/30/21 04:35 Sodium 139 mmol/L (137-145) 10/30/21 04:30 Potassium 4.2 mmol/L (3.6-5.0) D 10/30/21 04:30 Chloride 106.2 mmol/L (98-107) 10/30/21 04:30 Carbon Dioxide 21 mmol/L (22-30) L 10/30/21 04:30 Anion Gap 16 mmol/L 10/30/21 04:30 BUN 17 mg/dL (7-17) 10/30/21 04:30 Creatinine 1.2 mg/dL (0.6-1.2) 10/30/21 04:30 Estimated GFR 54 ml/min 10/30/21 04:30 BUN/Creatinine Ratio 14 % 10/30/21 04:30 Glucose 159 mg/dL (65-100) H 10/30/21 04:30 POC Glucose 151 mg/dL (70-105) H 10/30/21 05:45 Lactic Acid 2.00 mmol/L (0.7-2.0) 10/29/21 22:34 Calcium 7.9 mg/dL (8.4-10.2) L D 10/30/21 04:30 Magnesium 2.90 mg/dL (1.7-2.3) H 10/29/21 15:11 Total Bilirubin 0.40 mg/dL (0.1-1.2) 10/30/21 04:30 AST 461 units/L (5-40) H 10/30/21 04:30 ALT 686 units/L (7-56) H 10/30/21 04:30 Alkaline Phosphatase 130 units/L (35-129) H 10/30/21 04:30 Ammonia 31.0 umol/L (25-60) 10/29/21 15:10 Troponin T 1.150 ng/mL (0.00-0.029) H* D 10/29/21 22:34 Total Protein 5.6 g/dL (6.3-8.2) L D 10/30/21 04:30 Albumin 3.2 g/dL (3.9-5) L 10/30/21 04:30 Albumin/Globulin Ratio 1.3 % 10/30/21 04:30 Triglycerides 68 mg/dL (2-149) 10/29/21 19:40 Cholesterol 98 mg/dL (50-199) 10/29/21 19:40 LDL Cholesterol Direct 43 mg/dL (50-130) L 10/29/21 19:40 HDL Cholesterol 50 mg/dL (40-59) 10/29/21 19:40 Cholesterol/HDL Ratio 1.96 % 10/29/21 19:40 TSH 3.080 mlU/mL (0.270-4.200) 10/29/21 15:10 Urine Color Straw (Yellow) 10/29/21 18:15 Urine Turbidity Clear (Clear) 10/29/21 18:15 Urine pH 7.0 (5.0-7.0) 10/29/21 18:15 Ur Specific [place] 1.018 (1.003-1.030) 10/29/21 18:15 Urine Protein 100 mg/dl mg/dL (Negative) 10/29/21 18:15 Urine Glucose (UA) 150 mg/dL (Negative) 10/29/21 18:15 Urine Ketones Neg mg/dL (Negative) 10/29/21 18:15 Urine Blood Mod (Negative) 10/29/21 18:15 Urine Nitrite Neg (Negative) 10/29/21 18:15 Urine Bilirubin Neg (Negative) 10/29/21 18:15 Urine Urobilinogen < 2.0 mg/dL (<2.0) 10/29/21 18:15 Ur Leukocyte Esterase Neg (Negative) 10/29/21 18:15 Urine WBC (Auto) 5.0 /HPF (0.0-6.0) 10/29/21 18:15 Urine RBC (Auto) 2.0 /HPF (0.0-6.0) 10/29/21 18:15 U Epithel Cells (Auto) < 1.0 /HPF (0-13.0) 10/29/21 18:15 Urine Mucus Few /HPF 10/29/21 18:15 Salicylates < 0.3 mg/dL (2.8-20.0) L 10/29/21 15:10 Urine Opiates Screen Negative 10/29/21 18:15 Urine Methadone Screen Negative 10/29/21 18:15 Acetaminophen 5.0 ug/mL (10.0-30.0) L 10/29/21 15:10 Ur Barbiturates Screen Negative 10/29/21 18:15 Ur Phencyclidine Scrn Negative 10/29/21 18:15 Ur Amphetamines Screen Negative 10/29/21 18:15 U Benzodiazepines Scrn Negative 10/29/21 18:15 Urine Cocaine Screen Negative 10/29/21 18:15 U Marijuana (THC) Screen Negative 10/29/21 18:15 Drugs of Abuse Note Disclamer 10/29/21 18:15 Plasma/Serum Alcohol < 0.01 % (0-0.07) 10/29/21 15:10 Blood Type O POSITIVE 10/29/21 15:10 Antibody Screen Negative 10/29/21 15:10 Microbiology: Microbiology 10/29/21 Unknown Peripheral/Venous Blood Culture - Preliminary Culture in Progress 10/29/21 Unknown Peripheral/Venous Blood Culture - Preliminary Culture in Progress Gregory/IV: Voiding Method Indwelling Catheter Active Medications - Current Medications Current Medications: Generic Name Dose Route Start Last Admin Trade Name Freq PRN Reason Stop Dose Admin Acetaminophen 650 mg 10/29/21 17:04 Acetaminophen 325 Mg Tab PO Q6H PRN Pain, Mild (1-3) Acetaminophen 650 mg 10/29/21 17:04 Acetaminophen 650 Mg Rect Supp MT Q6H PRN Pain MILD(1-3)/Fever >100.5/NIEVES Enoxaparin Sodium 40 mg 10/30/21 10:00 Enoxaparin 40 Mg/0.4 Ml Inj SUB-[facility] Protocol Famotidine 20 mg 10/29/21 15:00 10/30/21 05:03 Famotidine 20 Mg/2 Ml Inj IV 20 mg BID RAMON Administration Fentanyl 50 mcg 10/29/21 14:29 10/29/21 16:23 Fentanyl 100 Mcg/2 Ml Inj IV 50 mcg Q10MIN PRN Administration ANALGESIA Hydromorphone HCl 0.25 mg 10/29/21 17:04 Hydromorphone 1 Mg/1 Ml Inj IV Q4H PRN Pain, Moderate (4-6) Hydromorphone HCl 0.5 mg 10/29/21 17:04 Hydromorphone 1 Mg/1 Ml Inj IV Q23H PRN Pain , Severe (7-10) Hydrophilic Ointment 1 applic 10/29/21 14:29 Lip Therapy Vaseline TP Q2HR PRN Dry Lips Fentanyl Citrate 2,000 mcg in 100 mls @ 5.67 mls/hr 10/29/21 15:00 10/30/21 04:59 Fentanyl Drip Premix IV 1 mcg/kg/hr TITR RAMON 5.67 mls/hr Administration Protocol 1 MCG/KG/HR NORepinephrine/NS 8 MG-250 ML 8 mg in 250 mls @ 3.75 mls/hr 10/29/21 15:00 10/30/21 09:51 Norepinephrine/Ns 8 Mg-250 Ml (Double Conc) IV 4 mcg/min TITRATE RAMON 7.5 mls/hr Titration Protocol 2 MCG/MIN Ceftriaxone Sodium 2 gm in 100 mls @ 200 mls/hr 10/29/21 18:00 10/29/21 22:05 Rocephin/Ns 2 Gm/100 Ml IV 200 mls/hr Q24H RAMON Administration Protocol Azithromycin 500 mg in 250 mls @ 250 mls/hr 10/29/21 18:00 10/29/21 22:46 Zithromax/Ns IV 250 mls/hr Q24H RAMON Administration Protocol Lorazepam 100 mg/ Sodium 100 mls @ 1 mls/hr 10/29/21 18:00 10/30/21 01:15 Chloride/ Miscellaneous IV 0 mg/hr Information TITR RAMON 0 mls/hr Titration Protocol 1 MG/HR Lorazepam 2 mg 10/29/21 17:48 10/29/21 23:07 Lorazepam 2 Mg/Ml Vial IV 2 mg Q10MIN PRN Administration Agitation Multi-Ingred Cream/Lotion/Oil/Oint 1 applic 10/29/21 14:29 Mineral Oil/Petrolatum, White Ophth Oint 3.5 Gm OU Q4HR PRN Dry Eye(s) Oxycodone/Acetaminophen 1 tab 10/29/21 17:04 Oxycodone /Acetaminophen 5-325mg Tab PO Q16H PRN Pain, Moderate (4-6) Senna/Docusate Sodium 1 tab 10/29/21 15:00 10/30/21 05:03 Sennosides/Docusate Sodium 8.6/50 Mg Tab FEEDTUBE 1 tab BID RAMON Administration Sodium Chloride 10 ml 10/29/21 22:00 Sodium Chloride 0.9% 10 Ml Flush Syringe IV BID RAMON Sodium Chloride 10 ml 10/29/21 17:04 Sodium Chloride 0.9% 10 Ml Flush Syringe IV PRN PRN LINE FLUSH Nutrition/Malnutrition Assess - Dietary Evaluation Nutrition/Malnutrition Findings: Nutrition Notes Start: 10/30/21 09:50 Freq: Status: Active Protocol: Document 10/30/21 09:50 RS (Rec: 10/30/21 10:18 RS [id number]) Nutrition Notes Need for 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 Pt is intubated and on max pressors. Unable to retrieve wt hx and diet hx from pt d/t. Percent of energy/protein needs met: 0%/0% Burn Absent Trauma Absent GI Symptoms None Skin Integrity/Comment Yossi Score 11 Current % PO Negligible Minimum of two criteria No physical signs of malnutrition #1 Nutrition Diagnosis Inadequate oral intake Etiology acute hypoxic respiratory failure As Evidenced by Signs and Symptoms pt being intubated and is now NPO Is patient on ventilator? Yes Is Patient Ambulatory and/or Out of Bed No REE-([facility]-confined to bed) 2022.848 Kcal/Kg value to use for calculation 19 Approximate Energy Requirements Using 2026 kcal/Kg Calculation Used for Recommendations Kcal/kg Additional Notes PRO needs: 136g/day (2g/kg IBW /day Fluid needs 1mL/kcal Nutrition Intervention Change Diet Order: Continue NPO per MD and reccomend TF if pt remains intubated and taken off max dose of pressors Nutrition Support: Reccomend Vital AF 1.2 at 70mL /hr. Free water flush of 125mL q4hr. Kcal 2,016 Protein (gm) 126 Fluid (mL) 1,362 Goal #1 Diet advancement when feasible Anticipated Discharge Needs: Unable to assess at this time Follow-Up By: 11/01/21 Additional Comments F/U for diet advancement, reccomend TF if pt remains intubated within next 48hrs <ABRAM DIAS - Last Filed: 10/31/21 07:14> Assessment and Plan Assessment and plan: I saw and evaluated the patient. I agree with the findings and the plan of care as documented in the Nurse Practitioner's~note, with the following corrections and additions. Hospitalist Physical - Constitutional Vitals: Temp Pulse Resp BP Pulse Ox 99.3 F 84 22 116/71 100 10/31/21 03:35 10/31/21 06:00 10/31/21 06:00 10/31/21 06:00 10/31/21 06:00 HEART Score - HEART Score Troponin: Troponin T 1.150 ng/mL (0.00-0.029) H* D 10/29/21 22:34 Results - Labs CBC & Chem 7: 10/31/21 04:30 10/31/21 04:30 Labs: Laboratory Last Values WBC 14.4 K/mm3 (4.5-11.0) H 10/31/21 04:30 RBC 3.94 M/mm3 (3.65-5.03) 10/31/21 04:30 Hgb 10.4 gm/dl (10.1-14.3) 10/31/21 04:30 Hct 33.2 % (30.3-42.9) 10/31/21 04:30 MCV 84 fl (79-97) 10/31/21 04:30 MCH 26 pg (28-32) L 10/31/21 04:30 MCHC 31 % (30-34) 10/31/21 04:30 RDW 15.2 % (13.2-15.2) 10/31/21 04:30 Plt Count 153 K/mm3 (140-440) 10/31/21 04:30 Lymph % (Auto) 6.2 % (13.4-35.0) L 10/30/21 04:30 [place] % (Auto) 5.5 % (0.0-7.3) 10/30/21 04:30 Eos % (Auto) 0.1 % (0.0-4.3) 10/30/21 04:30 Baso % (Auto) 0.1 % (0.0-1.8) 10/30/21 04:30 Lymph # (Auto) 1.0 K/mm3 (1.2-5.4) L 10/30/21 04:30 [place] # (Auto) 0.9 K/mm3 (0.0-0.8) H 10/30/21 04:30 Eos # (Auto) 0.0 K/mm3 (0.0-0.4) 10/30/21 04:30 Baso # (Auto) 0.0 K/mm3 (0.0-0.1) 10/30/21 04:30 Add Manual Diff Complete 10/29/21 15:10 Total Counted 100 10/29/21 15:10 Seg Neutrophils % 88.1 % (40.0-70.0) H 10/30/21 04:30 Seg Neuts % (Manual) 78.0 % (40.0-70.0) H 10/29/21 15:10 Band Neutrophils % 5.0 % 10/29/21 15:10 Lymphocytes % (Manual) 10.0 % (13.4-35.0) L 10/29/21 15:10 Reactive Lymphs % (Man) 0 % 10/29/21 15:10 Monocytes % (Manual) 5.0 % (0.0-7.3) 10/29/21 15:10 Eosinophils % (Manual) 0 % (0.0-4.3) 10/29/21 15:10 Basophils % (Manual) 0 % (0.0-1.8) 10/29/21 15:10 Metamyelocytes % 2.0 % 10/29/21 15:10 Myelocytes % 0 % 10/29/21 15:10 Promyelocytes % 0 % 10/29/21 15:10 Blast Cells % 0 % 10/29/21 15:10 Nucleated RBC % Not Reportable 10/29/21 15:10 Seg Neutrophils # 14.2 K/mm3 (1.8-7.7) H 10/30/21 04:30 Seg Neutrophils # Man 21.7 K/mm3 (1.8-7.7) H 10/29/21 15:10 Band Neutrophils # 1.4 K/mm3 10/29/21 15:10 Lymphocytes # (Manual) 2.8 K/mm3 (1.2-5.4) 10/29/21 15:10 Abs React Lymphs (Man) 0.0 K/mm3 10/29/21 15:10 Monocytes # (Manual) 1.4 K/mm3 (0.0-0.8) H 10/29/21 15:10 Eosinophils # (Manual) 0.0 K/mm3 (0.0-0.4) 10/29/21 15:10 Basophils # (Manual) 0.0 K/mm3 (0.0-0.1) 10/29/21 15:10 Metamyelocytes # 0.6 K/mm3 10/29/21 15:10 Myelocytes # 0.0 K/mm3 10/29/21 15:10 Promyelocytes # 0.0 K/mm3 10/29/21 15:10 Blast Cells # 0.0 K/mm3 10/29/21 15:10 WBC Morphology Not Reportable 10/29/21 15:10 Hypersegmented Neuts Not Reportable 10/29/21 15:10 Hyposegmented Neuts Not Reportable 10/29/21 15:10 Hypogranular Neuts Not Reportable 10/29/21 15:10 Smudge Cells Not Reportable 10/29/21 15:10 Toxic Granulation Not Reportable 10/29/21 15:10 Toxic Vacuolation Not Reportable 10/29/21 15:10 Dohle Bodies Not Reportable 10/29/21 15:10 Pelger-Huet Anomaly Not Reportable 10/29/21 15:10 Manny Rods Not Reportable 10/29/21 15:10 Platelet Estimate Consistent w auto 10/29/21 15:10 Clumped Platelets Not Reportable 10/29/21 15:10 Plt Clumps, EDTA Not Reportable 10/29/21 15:10 Large Platelets Not Reportable 10/29/21 15:10 Giant Platelets Not Reportable 10/29/21 15:10 Platelet Satelliting Not Reportable 10/29/21 15:10 Plt Morphology Comment Not Reportable 10/29/21 15:10 RBC Morphology Not Reportable 10/29/21 15:10 Dimorphic RBCs Not Reportable 10/29/21 15:10 Polychromasia Not Reportable 10/29/21 15:10 Hypochromasia Not Reportable 10/29/21 15:10 Poikilocytosis 1+ 10/29/21 15:10 Anisocytosis Not Reportable 10/29/21 15:10 Microcytosis 1+ 10/29/21 15:10 Macrocytosis Not Reportable 10/29/21 15:10 Spherocytes Not Reportable 10/29/21 15:10 Pappenheimer Bodies Not Reportable 10/29/21 15:10 Sickle Cells Not Reportable 10/29/21 15:10 Target Cells Not Reportable 10/29/21 15:10 Tear Drop Cells Not Reportable 10/29/21 15:10 Ovalocytes Few 10/29/21 15:10 Helmet Cells Not Reportable 10/29/21 15:10 Maradiaga-Rowlett Bodies Not Reportable 10/29/21 15:10 [place] Rings Not Reportable 10/29/21 15:10 [place] Cells Not Reportable 10/29/21 15:10 Bite Cells Not Reportable 10/29/21 15:10 Crenated Cell Not Reportable 10/29/21 15:10 Elliptocytes Few 10/29/21 15:10 Acanthocytes (Spur) Not Reportable 10/29/21 15:10 Rouleaux Not Reportable 10/29/21 15:10 Hemoglobin C Crystals Not Reportable 10/29/21 15:10 Schistocytes Not Reportable 10/29/21 15:10 Malaria parasites Not Reportable 10/29/21 15:10 Magdy Bodies Not Reportable 10/29/21 15:10 Hem Pathologist Commnt No 10/29/21 15:10 PT 17.2 Sec. (12.2-14.9) H 10/30/21 16:30 INR 1.27 (0.87-1.13) H 10/30/21 16:30 APTT 44.4 Sec. (24.2-36.6) H 10/30/21 16:30 D-Dimer > 20946 ng/mlDDU (0-234) H 10/30/21 Unknown Heparin Anti-Xa Level 0.69 U.I./ml (0.3-0.7) 10/31/21 06:26 ABG pH 7.412 pH Units (7.350-7.450) 10/30/21 04:35 ABG pCO2 34.1 mm Hg 10/30/21 04:35 ABG pO2 69.5 mm Hg (80.0-90.0) L 10/30/21 04:35 ABG HCO3 21.2 mmol/L (20.0-26.0) 10/30/21 04:35 ABG O2 Saturation 95.6 % (95.0-99.0) 10/30/21 04:35 ABG O2 Content 18.2 (0.0-44) 10/29/21 16:01 ABG Base Excess -2.7 mmol/L (-2.0-3.0) L 10/30/21 04:35 ABG Hemoglobin 12.0 gm/dl (12.0-16.0) 10/30/21 04:35 ABG Carboxyhemoglobin 0.6 % (0.0-5.0) 10/30/21 04:35 ABG Methemoglobin 0.3 % (0.0-1.5) 10/30/21 04:35 Oxyhemoglobin 94.7 % (95.0-99.0) L 10/30/21 04:35 FiO2 80 % 10/30/21 04:35 Sodium 143 mmol/L (137-145) 10/31/21 04:30 Potassium 3.5 mmol/L (3.6-5.0) L 10/31/21 04:30 Chloride 107.5 mmol/L (98-107) H 10/31/21 04:30 Carbon Dioxide 20 mmol/L (22-30) L 10/31/21 04:30 Anion Gap 19 mmol/L 10/31/21 04:30 BUN 28 mg/dL (7-17) H 10/31/21 04:30 Creatinine 1.7 mg/dL (0.6-1.2) H 10/31/21 04:30 Estimated GFR 36 ml/min 10/31/21 04:30 BUN/Creatinine Ratio 16 % 10/31/21 04:30 Glucose 113 mg/dL (65-100) H 10/31/21 04:30 POC Glucose 106 mg/dL (70-105) H 10/31/21 05:11 Hemoglobin A1c 6.7 % (4-6) H 10/31/21 04:30 Lactic Acid 2.00 mmol/L (0.7-2.0) 10/29/21 22:34 Calcium 7.9 mg/dL (8.4-10.2) L 10/31/21 04:30 Phosphorus 3.10 mg/dL (2.5-4.5) 10/31/21 04:30 Magnesium 1.70 mg/dL (1.7-2.3) 10/31/21 04:30 Ferritin 208.4 ng/mL (10.0-200.0) H 10/30/21 Unknown Total Bilirubin 0.40 mg/dL (0.1-1.2) 10/30/21 04:30 AST 461 units/L (5-40) H 10/30/21 04:30 ALT 686 units/L (7-56) H 10/30/21 04:30 Alkaline Phosphatase 130 units/L (35-129) H 10/30/21 04:30 Ammonia 31.0 umol/L (25-60) 10/29/21 15:10 Lactate Dehydrogenase 469 units/L (91-180) H 10/30/21 Unknown Troponin T 1.150 ng/mL (0.00-0.029) H* D 10/29/21 22:34 C-Reactive Protein 13.40 mg/dL (0.00-1.30) H 10/30/21 Unknown Total Protein 5.6 g/dL (6.3-8.2) L D 10/30/21 04:30 Albumin 3.2 g/dL (3.9-5) L 10/30/21 04:30 Albumin/Globulin Ratio 1.3 % 10/30/21 04:30 Triglycerides 68 mg/dL (2-149) 10/29/21 19:40 Cholesterol 98 mg/dL (50-199) 10/29/21 19:40 LDL Cholesterol Direct 43 mg/dL (50-130) L 10/29/21 19:40 HDL Cholesterol 50 mg/dL (40-59) 10/29/21 19:40 Cholesterol/HDL Ratio 1.96 % 10/29/21 19:40 Procalcitonin 61.95 ng/mL (<0.15) 10/30/21 Unknown TSH 3.080 mlU/mL (0.270-4.200) 10/29/21 15:10 Urine Color Straw (Yellow) 10/29/21 18:15 Urine Turbidity Clear (Clear) 10/29/21 18:15 Urine pH 7.0 (5.0-7.0) 10/29/21 18:15 Ur Specific [place] 1.018 (1.003-1.030) 10/29/21 18:15 Urine Protein 100 mg/dl mg/dL (Negative) 10/29/21 18:15 Urine Glucose (UA) 150 mg/dL (Negative) 10/29/21 18:15 Urine Ketones Neg mg/dL (Negative) 10/29/21 18:15 Urine Blood Mod (Negative) 10/29/21 18:15 Urine Nitrite Neg (Negative) 10/29/21 18:15 Urine Bilirubin Neg (Negative) 10/29/21 18:15 Urine Urobilinogen < 2.0 mg/dL (<2.0) 10/29/21 18:15 Ur Leukocyte Esterase Neg (Negative) 10/29/21 18:15 Urine WBC (Auto) 5.0 /HPF (0.0-6.0) 10/29/21 18:15 Urine RBC (Auto) 2.0 /HPF (0.0-6.0) 10/29/21 18:15 U Epithel Cells (Auto) < 1.0 /HPF (0-13.0) 10/29/21 18:15 Urine Mucus Few /HPF 10/29/21 18:15 Salicylates < 0.3 mg/dL (2.8-20.0) L 10/29/21 15:10 Urine Opiates Screen Negative 10/29/21 18:15 Urine Methadone Screen Negative 10/29/21 18:15 Acetaminophen 5.0 ug/mL (10.0-30.0) L 10/29/21 15:10 Ur Barbiturates Screen Negative 10/29/21 18:15 Ur Phencyclidine Scrn Negative 10/29/21 18:15 Ur Amphetamines Screen Negative 10/29/21 18:15 U Benzodiazepines Scrn Negative 10/29/21 18:15 Urine Cocaine Screen Negative 10/29/21 18:15 U Marijuana (THC) Screen Negative 10/29/21 18:15 Drugs of Abuse Note Disclamer 10/29/21 18:15 Plasma/Serum Alcohol < 0.01 % (0-0.07) 10/29/21 15:10 Coronavirus (PCR) Negative (Negative) 10/30/21 Unknown Blood Type O POSITIVE 10/29/21 15:10 Antibody Screen Negative 10/29/21 15:10 Microbiology: Microbiology 10/29/21 Unknown Peripheral/Venous Blood Culture - Preliminary NO GROWTH AFTER 24 HOURS 10/29/21 Unknown Peripheral/Venous Blood Culture - Preliminary NO GROWTH AFTER 24 HOURS 10/29/21 16:15 Sputum - Expectorated Sputum Sputum Culture - Preliminary Gregory/IV: Voiding Method Indwelling Catheter Active Medications - Current Medications Current Medications: Generic Name Dose Route Start Last Admin Trade Name Freq PRN Reason Stop Dose Admin Acetaminophen 650 mg 10/29/21 17:04 10/31/21 05:08 Acetaminophen 325 Mg Tab PO 650 mg Q6H PRN Administration Pain, Mild (1-3) Acetaminophen 650 mg 10/29/21 17:04 Acetaminophen 650 Mg Rect Supp MT Q6H PRN Pain MILD(1-3)/Fever >100.5/NIEVES Dextrose 50 ml 10/30/21 15:21 Dextrose 50% In Water (25gm) 50 Ml Syringe IV Q30MIN PRN Hypoglycemia Protocol Famotidine 20 mg 10/29/21 15:00 10/30/21 21:11 Famotidine 20 Mg/2 Ml Inj IV 20 mg BID RAMON Administration Fentanyl 50 mcg 10/29/21 14:29 10/31/21 05:00 Fentanyl 100 Mcg/2 Ml Inj IV 50 mcg Q10MIN PRN Administration ANALGESIA Heparin Sodium (Porcine) 4,300 unit 10/30/21 17:00 Heparin 10,000 Units/10 Ml Vial 40 unit/kg (4300 unit) IV Q6H PRN Anti-Xa Assay < 0.1 units/ml Hydromorphone HCl 0.25 mg 10/29/21 17:04 Hydromorphone 1 Mg/1 Ml Inj IV Q4H PRN Pain, Moderate (4-6) Hydromorphone HCl 0.5 mg 10/29/21 17:04 Hydromorphone 1 Mg/1 Ml Inj IV Q23H PRN Pain , Severe (7-10) Hydrophilic Ointment 1 applic 10/29/21 14:29 Lip Therapy Vaseline TP Q2HR PRN Dry Lips Fentanyl Citrate 2,000 mcg in 100 mls @ 5.67 mls/hr 10/29/21 15:00 10/31/21 05:08 Fentanyl Drip Premix IV 4 mcg/kg/hr TITR RAMON 22.68 mls/hr Administration Protocol 1 MCG/KG/HR NORepinephrine/NS 8 MG-250 ML 8 mg in 250 mls @ 3.75 mls/hr 10/29/21 15:00 10/30/21 20:52 Norepinephrine/Ns 8 Mg-250 Ml (Double Conc) IV 4 mcg/min TITRATE RAMON 7.5 mls/hr Administration Protocol 2 MCG/MIN Ceftriaxone Sodium 2 gm in 100 mls @ 200 mls/hr 10/29/21 18:00 10/30/21 19:08 Rocephin/Ns 2 Gm/100 Ml IV Infused Q24H [facility] Infusion Protocol Azithromycin 500 mg in 250 mls @ 250 mls/hr 10/29/21 18:00 10/30/21 18:48 Zithromax/Ns IV 250 mls/hr Q24H RAMON Administration Protocol Heparin Sodium/Sodium Chloride 25,000 unit in 500 mls @ 30 mls/hr 10/30/21 17:00 10/31/21 00:22 Heparin/ 0.45% Nacl-25,000 Unit/500 Ml IV 1,400 units/hr TITR RAMON 28 mls/hr Titration Protocol 1,500 UNITS/HR Insulin Human Lispro 0 unit 10/30/21 16:00 10/31/21 06:15 Insulin Lispro 100 Unit/Ml SUB-Q Not Given Q6HR [facility] Protocol Multi-Ingred Cream/Lotion/Oil/Oint 1 applic 10/29/21 14:29 Mineral Oil/Petrolatum, White Ophth Oint 3.5 Gm OU Q4HR PRN Dry Eye(s) Oxycodone/Acetaminophen 1 tab 10/29/21 17:04 Oxycodone /Acetaminophen 5-325mg Tab PO Q16H PRN Pain, Moderate (4-6) Senna/Docusate Sodium 1 tab 10/29/21 15:00 10/30/21 21:11 Sennosides/Docusate Sodium 8.6/50 Mg Tab FEEDTUBE Not Given BID RAMON Sodium Chloride 10 ml 10/29/21 22:00 10/30/21 21:10 Sodium Chloride 0.9% 10 Ml Flush Syringe IV 10 ml BID RAMON Administration Sodium Chloride 10 ml 10/29/21 17:04 Sodium Chloride 0.9% 10 Ml Flush Syringe IV PRN PRN LINE FLUSH Nutrition/Malnutrition Assess - Dietary Evaluation Nutrition/Malnutrition Findings: Nutrition Notes Start: 10/30/21 09:50 Freq: Status: Active Protocol: Document 10/30/21 09:50 RS (Rec: 10/30/21 10:18 RS [id number]) Nutrition Notes Need for 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 Pt is intubated and on max pressors. Unable to retrieve wt hx and diet hx from pt d/t. Percent of energy/protein needs met: 0%/0% Burn Absent Trauma Absent GI Symptoms None Skin Integrity/Comment Yossi Score 11 Current % PO Negligible Minimum of two criteria No physical signs of malnutrition #1 Nutrition Diagnosis Inadequate oral intake Etiology acute hypoxic respiratory failure As Evidenced by Signs and Symptoms pt being intubated and is now NPO Is patient on ventilator? Yes Is Patient Ambulatory and/or Out of Bed No REE-([place]-confined to bed) 2022.848 Kcal/Kg value to use for calculation 19 Approximate Energy Requirements Using 2026 kcal/Kg Calculation Used for Recommendations Kcal/kg Additional Notes PRO needs: 136g/day (2g/kg IBW /day Fluid needs 1mL/kcal Nutrition Intervention Change Diet Order: Continue NPO per MD and reccomend TF if pt remains intubated and taken off max dose of pressors Nutrition Support: Reccomend Vital AF 1.2 at 70mL /hr. Free water flush of 125mL q4hr. Kcal 2,016 Protein (gm) 126 Fluid (mL) 1,362 Goal #1 Diet advancement when feasible Anticipated Discharge Needs: Unable to assess at this time Follow-Up By: 11/01/21 Additional Comments F/U for diet advancement, reccomend TF if pt remains intubated within next 48hrs
--- NOTE | 2021-10-30 11:29 | Consultation ---
DATE OF CONSULTATION: 10/30/2021 CARDIOLOGY CONSULTATION REASON FOR CONSULTATION: Advice regarding cardiac arrest. HISTORY OF PRESENT ILLNESS: It should be noted that most of the history is taken per chart. Over 50 minutes of time was spent in care and coordination of this consultation. The patient was brought to the Emergency Room last night after having an outside hospital cardiac arrest. Apparently, the family was attending [employer] services. The patient collapsed and lost consciousness, witnesses began CPR. Apparently, she was down for some 7-9 minutes. Details are unclear. PAST MEDICAL HISTORY: Unclear. SOCIAL HISTORY: She is a nonsmoker, nondrinker. PAST SURGICAL HISTORY: Unable to obtain surgical history. ALLERGIES: No known drug, food or environmental allergies. FAMILY HISTORY: Diabetes and hypertension. The patient is seen in the ICU, intubated and sedated. INPATIENT AND OUTPATIENT MEDICATIONS: Reviewed. REVIEW OF SYSTEMS: Unable to obtain review of systems. PHYSICAL EXAMINATION: VITAL SIGNS: Blood pressure is 107/60. The patient is in sinus rhythm in the 80s and 90s, O2 sat is 100%. LABORATORY DATA: WBC 16.2, hemoglobin 10.8, hematocrit 35, platelets are 202. Potassium is 4.2, initially it was 2.8. Lactic acid was 2. Initial troponin was 1.1. Head CT showed no acute parenchymal lesion. Chest CTA showed no CT evidence of pulmonary embolus, bilateral airspace consolidation, questionable aspiration. EKG reveals accelerated junctional rhythm, nonspecific ST-T wave changes, LVH. The patient's EMS records reveal a questionable downtime of approximately 7 minutes. David airway is placed. Unclear of the rhythm, but appears to at some point be a PEA arrest. ASSESSMENT: In summary, the patient is a 66-year-old female. Acute cardiopulmonary arrest with pulseless electrical activity rhythm with spontaneous resumption of circulation after some 7-10 minutes of downtime. Details are not entirely clear. The patient is now in sinus rhythm, normotensive, intubated and sedated. EKG is nonacute. Agree with current therapies. Follow up echocardiogram. Likely will need neuro consultation to see neurologic recovery. Thank you for this consultation. I will be happy to follow along with you. TID: [id number] RECEIPT: [id number] LYNN/DAVE/LEONARDO
--- NOTE | 2021-10-30 12:29 | XRay Report ---
CHEST 1 VIEW 10/30/2021 11:05 AM INDICATION / CLINICAL INFORMATION: CVC Placement. COMPARISON: 10/30/21 1:54 AM FINDINGS: SUPPORT DEVICES: Interval placement of new right jugular central line with tip projecting over the SV C-right atrial junction. Endotracheal and esophagogastric tubes are unchanged. HEART / MEDIASTINUM: No significant abnormality. LUNGS / PLEURA: Left basilar pleural-parenchymal density is stable. Interval development of moderate- sized right pneumothorax measuring 5 cm at the right lung apex. ADDITIONAL FINDINGS: No significant additional findings. IMPRESSION: 1. Moderate right pneumothorax after right central line placement. CRITICAL RESULT: Right pneumothorax Time of Discovery (SENIOR SQL DEVELOPER/CDT): 11:20 AM Time of Communication (SENIOR SQL DEVELOPER/CDT): 11:24 AM Licensed Practitioner Receiving Report: Nurse Janusz in the critical care unit Read-Back Performed: Yes. Signer Name: Angel Dudley MD Signed: 10/30/2021 12:24 PM Workstation Name: [id number]
--- NOTE | 2021-10-30 12:32 | Consultation ---
History of Present Illness Consult date: 10/30/21 Requesting physician: PRATEEK GALLO Reason for consult: other (Cardiac Arrest with ROSC) History of present illness: PULMONARY/CCM CONSULT NOTE (Full dictation # [id number]) Please see dictated notes for full details Past History Past Medical History: other (See HPI) Past Surgical History: No surgical history, Other (Unable to obtain) Social history: single. denies: smoking, alcohol abuse, prescription drug abuse Family history: diabetes, hypertension Medications and Allergies Allergies Allergy/AdvReac Type Severity Reaction Status Date / Time No Known Allergies Allergy Verified 10/29/21 14:01 Active Meds: Active Medications Acetaminophen (Acetaminophen 325 Mg Tab) 650 mg PO Q6H PRN PRN Reason: Pain, Mild (1-3) Acetaminophen (Acetaminophen 650 Mg Rect Supp) 650 mg [place] Q6H PRN PRN Reason: Pain MILD(1-3)/Fever >100.5/NIEVES Enoxaparin Sodium (Enoxaparin 40 Mg/0.4 Ml Inj) 40 mg SUB-Q QDAY [facility]; Protocol Last Admin: 10/30/21 10:45 Dose: 40 mg Famotidine (Famotidine 20 Mg/2 Ml Inj) 20 mg IV BID RAMON Last Admin: 10/30/21 10:45 Dose: 20 mg Fentanyl (Fentanyl 100 Mcg/2 Ml Inj) 50 mcg IV Q10MIN PRN PRN Reason: ANALGESIA Last Admin: 10/29/21 16:23 Dose: 50 mcg Hydromorphone HCl (Hydromorphone 1 Mg/1 Ml Inj) 0.25 mg IV Q4H PRN PRN Reason: Pain, Moderate (4-6) Hydromorphone HCl (Hydromorphone 1 Mg/1 Ml Inj) 0.5 mg IV Q23H PRN PRN Reason: Pain , Severe (7-10) Hydrophilic Ointment (Lip Therapy Vaseline) 1 applic TP Q2HR PRN PRN Reason: Dry Lips Fentanyl Citrate (Fentanyl Drip Premix) 2,000 mcg in 100 mls @ 5.67 mls/hr IV TITR RAMON; Protocol Last Titration: 10/30/21 12:21 Dose: 2 mcg/kg/hr, 11.34 mls/hr NORepinephrine/NS 8 MG-250 ML (Norepinephrine/Ns 8 Mg-250 Ml (Double Conc)) 8 mg in 250 mls @ 3.75 mls/hr IV TITRATE RAMON; Protocol Last Titration: 10/30/21 12:20 Dose: 10 mcg/min, 18.75 mls/hr Ceftriaxone Sodium (Rocephin/Ns 2 Gm/100 Ml) 2 gm in 100 mls @ 200 mls/hr IV Q24H RAMON; Protocol Last Admin: 10/29/21 22:05 Dose: 200 mls/hr Azithromycin (Zithromax/Ns) 500 mg in 250 mls @ 250 mls/hr IV Q24H RAMON; Protocol Last Admin: 10/29/21 22:46 Dose: 250 mls/hr Lorazepam 100 mg/ Sodium Chloride/ Miscellaneous Information 100 mls @ 1 mls/hr IV TITR RAMON; Protocol Last Titration: 10/30/21 01:15 Dose: 0 mg/hr, 0 mls/hr Lorazepam (Lorazepam 2 Mg/Ml Vial) 2 mg IV Q10MIN PRN PRN Reason: Agitation Last Admin: 10/30/21 10:45 Dose: 2 mg Multi-Ingred Cream/Lotion/Oil/Oint (Mineral Oil/Petrolatum, White Ophth Oint 3.5 Gm) 1 applic OU Q4HR PRN PRN Reason: Dry Eye(s) Oxycodone/Acetaminophen (Oxycodone /Acetaminophen 5-325mg Tab) 1 tab PO Q16H PRN PRN Reason: Pain, Moderate (4-6) Senna/Docusate Sodium (Sennosides/Docusate Sodium 8.6/50 Mg Tab) 1 tab FEEDTUBE BID [facility] Last Admin: 10/30/21 10:45 Dose: 1 tab Sodium Chloride (Sodium Chloride 0.9% 10 Ml Flush Syringe) 10 ml IV BID RAMON Last Admin: 10/30/21 10:45 Dose: 10 ml Sodium Chloride (Sodium Chloride 0.9% 10 Ml Flush Syringe) 10 ml IV PRN PRN PRN Reason: LINE FLUSH Physical Examination Vital signs: Vital Signs Pulse Ox 96 10/29/21 14:03 Results - Laboratory Findings CBC and BMP: 10/30/21 04:30 10/30/21 04:30 ABG ABG pH 7.412 pH Units (7.350-7.450) 10/30/21 04:35 ABG pCO2 34.1 mm Hg 10/30/21 04:35 ABG pO2 69.5 mm Hg (80.0-90.0) L 10/30/21 04:35 ABG O2 Saturation 95.6 % (95.0-99.0) 10/30/21 04:35 PT/INR, D-dimer PT 13.6 Sec. (12.2-14.9) 10/29/21 15:10 INR 0.94 (0.87-1.13) 10/29/21 15:10 Abnormal lab findings: Abnormal Labs 10/29/21 10/29/21 10/29/21 15:10 15:10 15:10 WBC 27.8 H MCH 27 L RDW Lymph % (Auto) Lymph # (Auto) Isabella # (Auto) Seg Neutrophils % Seg Neuts % (Manual) 78.0 H Lymphocytes % (Manual) 10.0 L Seg Neutrophils # Seg Neutrophils # Man 21.7 H Monocytes # (Manual) 1.4 H ABG pH ABG pO2 ABG O2 Saturation ABG Base Excess Oxyhemoglobin Sodium Potassium Chloride Carbon Dioxide Glucose POC Glucose Lactic Acid 6.80 H* Calcium Magnesium AST ALT Alkaline Phosphatase Troponin T 0.089 H Total Protein Albumin LDL Cholesterol Direct Salicylates Acetaminophen 10/29/21 10/29/21 10/29/21 15:10 15:10 15:10 WBC MCH RDW Lymph % (Auto) Lymph # (Auto) Isabella # (Auto) Seg Neutrophils % Seg Neuts % (Manual) Lymphocytes % (Manual) Seg Neutrophils # Seg Neutrophils # Man Monocytes # (Manual) ABG pH ABG pO2 ABG O2 Saturation ABG Base Excess Oxyhemoglobin Sodium 136 L Potassium 2.8 L* Chloride 93.4 L Carbon Dioxide 20 L Glucose 330 H POC Glucose Lactic Acid Calcium Magnesium AST 1013 H ALT 1289 H Alkaline Phosphatase 246 H Troponin T Total Protein Albumin LDL Cholesterol Direct Salicylates < 0.3 L Acetaminophen 5.0 L 10/29/21 10/29/21 10/29/21 15:11 16:01 19:29 WBC MCH RDW Lymph % (Auto) Lymph # (Auto) Isabella # (Auto) Seg Neutrophils % Seg Neuts % (Manual) Lymphocytes % (Manual) Seg Neutrophils # Seg Neutrophils # Man Monocytes # (Manual) ABG pH 7.307 L ABG pO2 64.1 L ABG O2 Saturation 90.8 L ABG Base Excess -2.9 L Oxyhemoglobin 89.3 L Sodium Potassium Chloride Carbon Dioxide Glucose POC Glucose Lactic Acid 2.60 H* Calcium Magnesium 2.90 H AST ALT Alkaline Phosphatase Troponin T Total Protein Albumin LDL Cholesterol Direct Salicylates Acetaminophen 10/29/21 10/29/21 10/30/21 19:40 22:34 04:30 WBC 16.2 H MCH 26 L RDW 15.5 H Lymph % (Auto) 6.2 L Lymph # (Auto) 1.0 L Isabella # (Auto) 0.9 H Seg Neutrophils % 88.1 H Seg Neuts % (Manual) Lymphocytes % (Manual) Seg Neutrophils # 14.2 H Seg Neutrophils # Man Monocytes # (Manual) ABG pH ABG pO2 ABG O2 Saturation ABG Base Excess Oxyhemoglobin Sodium Potassium Chloride Carbon Dioxide Glucose POC Glucose Lactic Acid Calcium Magnesium AST ALT Alkaline Phosphatase Troponin T 1.950 H* D 1.150 H* D Total Protein Albumin LDL Cholesterol Direct 43 L Salicylates Acetaminophen 10/30/21 10/30/21 10/30/21 04:30 04:35 05:45 WBC MCH RDW Lymph % (Auto) Lymph # (Auto) Isabella # (Auto) Seg Neutrophils % Seg Neuts % (Manual) Lymphocytes % (Manual) Seg Neutrophils # Seg Neutrophils # Man Monocytes # (Manual) ABG pH ABG pO2 69.5 L ABG O2 Saturation ABG Base Excess -2.7 L Oxyhemoglobin 94.7 L Sodium Potassium Chloride Carbon Dioxide 21 L Glucose 159 H POC Glucose 151 H Lactic Acid Calcium 7.9 L D Magnesium AST 461 H ALT 686 H Alkaline Phosphatase 130 H Troponin T Total Protein 5.6 L D Albumin 3.2 L LDL Cholesterol Direct Salicylates Acetaminophen 10/30/21 11:24 WBC MCH RDW Lymph % (Auto) Lymph # (Auto) Isabella # (Auto) Seg Neutrophils % Seg Neuts % (Manual) Lymphocytes % (Manual) Seg Neutrophils # Seg Neutrophils # Man Monocytes # (Manual) ABG pH ABG pO2 ABG O2 Saturation ABG Base Excess Oxyhemoglobin Sodium Potassium Chloride Carbon Dioxide Glucose POC Glucose 153 H Lactic Acid Calcium Magnesium AST ALT Alkaline Phosphatase Troponin T Total Protein Albumin LDL Cholesterol Direct Salicylates Acetaminophen
--- NOTE | 2021-10-30 13:21 | Procedure Note ---
Date of procedure: 10/30/21 Pre-op diagnosis: Cardiac Arrest Post-op diagnosis: same Procedure: Right Chest Tube Placement Indication: Spontaneous Pneumothorax This an Emergent procedure. Patient's daughter, Eva Brown was notified post stabilization Complications: no immediate procedural complications noted. A time-out was completed verifying correct patient, procedure, site, and positioning. The patient's right upper anterior chest was prepped with chlorhexidine and drape in the usual fashion. Using the sternum and mid clavicular junction as guide, the second ICS was localized and palpated. 1% Lidocaine was used to anesthetize the skin down to the rib and along the prop osed insertion path for the tube. Utilizing a modified seldinger technique a finder needle was used for access, pleural space entered at junction of sternal angle and mid clavicular line above the rib and air escape was audible, bubbles noted during aspiration upon entering the pleural space. A guide wire was then threaded through needle into pleural space and a small incision was made through the skin and the subcutaneous tissues to dilate the space then a 8Fr Arrow pigtail chest drain was inserted into the pleural space. The drain was then immediately connected to a Pleur-evac. Adequate placement confirmed by air tidaling. The tube was sutured in place, petroleum gauze and dressing applied. CXR ordered. Atrium to -20 wall suction Total Time Spent with Patient (Minutes): 40 minutes Anesthesia: local Surgeon: SHAMEKA JOHNSTON (Supervised by Dr. Cross) Estimated blood loss: none Condition: critical Disposition: ICU
--- NOTE | 2021-10-30 14:16 | XRay Report ---
XR chest 1V ap INDICATION / CLINICAL INFORMATION: chest tube placement. COMPARISON: Oct 30, 2021. FINDINGS: SUPPORT DEVICES: Right chest tube HEART / MEDIASTINUM: Unchanged. LUNGS / PLEURA: Small residual right pneumothorax. Perihilar airspace disease. ADDITIONAL FINDINGS: No significant additional findings. IMPRESSION: 1. Right chest tube with decreased but persistent small residual right pneumothorax. Signer Name: Roly Hwang MD Signed: 10/30/2021 2:11 PM Workstation Name: [id number]
--- NOTE | 2021-10-30 14:34 | Electrocardiograph Report ---
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
--- NOTE | 2021-10-30 14:35 | Electrocardiograph Report ---
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
[2021-10-30 14:36] LABS: C-Reactive Protein 13.4 mg/dL (0.00-1.30)
[2021-10-30] MEDS ORDERED: DEXTROSE 50% IN WATER (25GM) 50 ML SYRINGE IV PRN (15:21)
--- NOTE | 2021-10-30 16:13 | Vascular Lab Report ---
VL venous duplex LE BILAT INDICATION / CLINICAL INFORMATION: swelling. TECHNIQUE: Duplex doppler imaging was performed using venous compression and other maneuvers. COMPARISON: None available. FINDINGS: There is thrombus seen within the left posterior tibial vein and bilateral peroneal veins. The other visualized lower extremity vasculature are patent. ADDITIONAL FINDINGS: None. IMPRESSION: 1. Deep venous thrombosis within the left posterior tibial vein and bilateral peroneal veins. Signer Name: Roly Hwang MD Signed: 10/30/2021 4:08 PM Workstation Name: [id number]
[2021-10-30 16:49] LABS: Hematocrit 32.7 % (30.3-42.9); Hemoglobin 10.2 gm/dl (10.1-14.3)
[2021-10-30] MEDS: ACETAMINOPHEN 325 MG TAB PO PRN (16:53)
[2021-10-30] MEDS: INSULIN LISPRO 100 UNIT/ML SUB-Q SCH ×2 (16:53→18:09)
[2021-10-30 17:00] LABS: INR 1.27 (0.87-1.13)
[2021-10-30] MEDS ORDERED: HEPARIN 10,000 UNITS/10 ML VIAL IV ONE (17:00)
[2021-10-30] MEDS ORDERED: HEPARIN 10,000 UNITS/10 ML VIAL IV PRN (17:00)
[2021-10-30 17:01] LABS: Partial Thromboplastin Time 44.4 Sec. (24.2-36.6)
--- NOTE | 2021-10-30 17:06 | XRay Report ---
. XR abdomen 1V ap INDICATION: NGT PLACEMENT COMPARISON: None. FINDINGS/IMPRESSION: Enteric tube terminates in the distal stomach. Signer Name: Roly Hwang MD Signed: 10/30/2021 5:01 PM Workstation Name: [id number]
[2021-10-30] MEDS: HEPARIN/ 0.45% NACL DRIP 25,000 UNIT/500 ML BAG IV SCH (17:24)
[2021-10-30] MEDS: cefTRIAXone/NS 2 GM/100 ML 2 GM/100 ML BAG IV SCH (18:08)
[2021-10-30] MEDS: AZITHROMYCIN/NS 500 MG/250 ML 500 MG/250 ML BAG IV SCH (18:48)
[2021-10-30] MEDS: NORepinephrine/NS 8 MG-250 ML 8 MG/250 ML INFUS..BTL IV SCH (20:52)
--- NOTE | 2021-10-30 21:00 | Consultation ---
DATE OF CONSULTATION: 10/30/2021 PULMONARY CRITICAL CARE CONSULTATION NOTE CONSULTING PHYSICIAN: Dr. Newberry. REASON FOR CONSULTATION: Cardiac arrest with return of spontaneous circulation. CHIEF COMPLAINT AND HISTORY OF PRESENT ILLNESS: The patient is a now 66-year-old obese female with past medical history that is really unknown except for the fact that she is obese. She was brought into the ER by [facility] as an vdt-ed-adptyhyq cardiac arrest. She collapsed while she was at [employer]. It is unclear if she was having any symptoms. There was bystander CPR performed. On the initial arrival, EMS noticed pulseless electrical activity. A David airway was placed. Aggressive CPR was continued. There was ultimately return of spontaneous circulation after about 5-7 minutes of initial resuscitation in the ER. In the ER, she was found to have a GCS of 3 while biting on the ET tube. Pupils were midpoint dilated. There was evidence of copious vomiting and gastric secretions in the oropharynx. A #7.5 ET tube was placed after removal of the David airway and we are asked to assist with management. When I stopped by to see her, she was resting in bed, on the mechanical ventilator. She had somewhat purposeful movements in terms of attempting to reach up towards her head when she was suctioned and coughing. With regard to the patient's tobacco use/abuse history that is unknown. The above is as much of the history of presentation as I have. PAST MEDICAL HISTORY: Obesity, otherwise unknown. PAST SURGICAL HISTORY: Unknown. MEDICATIONS: She was on at the time I stopped by to see her according to the medication administration record included the following: Tylenol 650 mg p.o. q. 6 hours p.r.n. mild pain or fevers, all p.o. meds via the feeding tube, azithromycin 500 mg IV daily, Rocephin 2 grams IV daily, Lovenox 40 mg subcutaneous daily, Pepcid 20 mg IV b.i.d., fentanyl drip was going at 2 mcg per kilogram per hour, Dilaudid 0.5 mg IV q. 23 hours p.r.n. severe pain and 0.25 mg IV q. 4 hours p.r.n. moderate pain, Ativan 2 mg IV q. 10 minutes p.r.n. agitation. She had also been started on Ativan drip. Levophed was going at 10 mcg per minute. Senna/docusate 1 tablet p.o. b.i.d., Percocet 1 tablet p.o. q. 16 hours p.r.n. moderate pain. She received cefepime 1 gram in the Emergency Room and Flagyl 500 mg IV and vancomycin 1 gram IV. ALLERGIES: No known drug allergies. DIET: Obese lady, acute weight loss or gain history is unknown. FAMILY AND SOCIAL HISTORY: Apparently lived in the community; however, alcohol, tobacco or illicit drug use or abuse history are unknown. FAMILY HISTORY: Otherwise unknown. The records mention a family history of diabetes and hypertension. REVIEW OF SYSTEMS: Unobtainable secondary to the patient's medical and mental condition. Since she has been here, no gross hematochezia or melena, no gross hematuria, no hematemesis, no bloody tracheal secretions, no witnessed seizures. Review of systems otherwise unobtainable or as in body of history above. PHYSICAL EXAMINATION: VITAL SIGNS: On presentation, she had a temperature of 99.7 degrees Fahrenheit, pulse of 130, respiratory rate of 16, blood pressure 113/53, O2 sats were 96%. Inspired oxygen concentration at the time was not recorded. Since she has been in the hospital, she has been febrile with a T-max of 101.7 degrees Fahrenheit. GENERAL: She is an elderly obese lady. Normocephalic, atraumatic, on the mechanical ventilator with mildly increased respiratory effort at rest. HEAD, EYES, EARS, NOSE AND THROAT: Anicteric. No conjunctival erythema. Oropharynx was moist. ET tube was taped at the lips around 22 cm. NECK: No gross jugular venous distention, no thyromegaly. Grossly, there were no palpable lymph nodes in the supraclavicular or submandibular lymph node chains. She has a right IJ central venous catheter in place. No significant bleeding at the stoma. LUNGS: Auscultation of both lung ramirez, actually unremarkable. Lungs are clear bilaterally. Good bilateral air movement. Somewhat distant due to the obesity. HEART: Sounds 1 and 2 are heard, regular rate and rhythm at the time of my evaluation. ABDOMEN: Soft, full, protuberant. Bowel sounds are positive, nontender, no palpable hepatosplenomegaly. EXTREMITIES: Without overt digital clubbing or cyanosis. No pedal edema. Pedal pulses are 2+ bilaterally. NEUROLOGIC: Pupils are equal, round, about 3 mm, reactive to light. Extraocular muscle movements are intact. She had some withdrawal movements to locating noxious stimuli, sternal rub. She had intentional movement of both upper extremities towards the chest. Otherwise, she was not following commands, but she was also sedated. Had some spontaneous movements to her lower extremities too. SKIN: Normal turgor in the areas that are examined without overt cellulitis or rash. Please see the wound care nurses' notes for full description of her skin. PSYCHIATRIC: Mood and affect could not be assessed. She was sedated also. LABORATORY DATA: From my review are as follows: Admission white cell count 27,800, hemoglobin 13.4, hematocrit 42.1, platelet count 201, 5% band forms on the manual differential. INR within normal limits. Arterial blood gas at presentation showed a pH of 7.31, pCO2 of 49, pO2 of 64 that was on 100% FiO2. Serum sodium was 136, potassium 2.8, chloride 93, bicarbonate 20, BUN 11, creatinine 1.2, glucose was 330. Lactic acid level was 6.8, now within normal limits. AST was up at 2013, ALT was up at 1289. Troponin was up at 0.089. It peaked at 1.95. LDL cholesterol was 43. Lactic acid level is now within normal limits. Arterial blood gas today showed a pH of 7.41, pCO2 of 34, pO2 of 70 that was on 80% FiO2 and that was on the mechanical ventilator. PRVC, AC rate of 22, tidal volume 500, and PEEP of 8. AST is down to 461, ALT is down to 686. Two sets of blood cultures are no growth to date. A CT scan of the cervical spine was done at presentation and it was read as no signs of acute bony trauma to the C-spine. A CT of the head was also drawn. No acute focal or parenchymal lesions. A chest x-ray at presentation, mild hypoventilation, enlarged pulmonary artery trunks and perihilar congestion with cardiomegaly. ET tube has been retracted a little bit on this morning's chest x-ray and there is a central line that appears to be headed in the wrong direction. A 2D echo shows ejection fraction of 25-30% with diastolic dysfunction, mild; severe global hypokinesis of the left ventricle. No pulmonary hypertension is observed. A chest x-ray this morning. Post-procedure shows a central line in good position. Distal SVC, but there is also right-sided pneumothorax. ASSESSMENT: 1. Acute hypoxemic respiratory failure, on mechanical ventilatory support. 2. Cardiac arrest with return of spontaneous circulation. 3. Right pneumothorax, status post chest tube now. 4. Shock, presumed septic versus cardiogenic. 5. Possible aspiration pneumonia. 6. Altered mental status/acute encephalopathy. 7. Elevated serum transaminases, likely shock liver. 8. Metabolic acidosis. 9. Obesity. 10. Leukocytosis. 11. Hypokalemia at presentation. 12. Lactic acidosis at presentation. PLAN: The fact that she is actually appropriately responsive to noxious stimuli is encouraging. Neurology evaluation will also definitely be of benefit. In the meantime, a chest tube has been placed in the right hemithorax, presumably for an iatrogenic pneumothorax. She remained stable on the mechanical ventilator. Ventilator-associated pneumonia bundle has been introduced. Bronchodilators, routine pulmonary hygiene will be per the respiratory therapist. Oxygen will be weaned to keep sats greater than or equal to about 90%. Aspiration precautions included in the VAP bundle. Enteral nutrition will be the feeding modality of choice. Vasopressors will be weaned to keep mean arterial pressures greater than or equal to about 65 mmHg. Cardiology evaluation will be of benefit, especially in light of the congestive heart failure. No acute indication for diuresis at this point in time. Venous thromboembolic phenomena workup will also be done. We will get a stat D-dimer level and get bilateral lower extremity Dopplers plus or minus further testing, which will include a CT angiogram if necessary. I should mention that a CT angiogram has actually been done on this patient. The CT angio was read as negative; however, there was a poor contrast phase timing and really it only applies possibly to the main pulmonary artery trunk. Bilateral lower extremity Dopplers will be gotten plus or minus re-imaging of the pulmonary arteries to make sure PE was not a cause of his cardiac arrest. She is appropriately on GI prophylaxis as well as DVT prophylaxis. In light of the recent clinical presentation of patients with COVID-19 in this most recent wave and clotting events, I will get Coronavirus PCR test to make sure we are not dealing with coronavirus infection inherent complications. She will be placed empirically in contact and airborne precautions. Thank you very much for the consult. I should mention Infectious Disease consultation will be appropriate. We will follow along and make further recommendations as picture progresses/becomes clearer. She is critically ill, on life-sustaining interventions including mechanical ventilatory support and vasopressors, at very high risk of from cardiopulmonary system decompensation. At this time, I spent about 35-40 minutes of critical care time without overlap and excluding any procedural time that may be necessary. TID: [id number] RECEIPT: [id number] DON/LANE
[2021-10-30] MEDS: fentaNYL 100 MCG/2 ML INJ IV PRN (22:37)
[2021-10-31] MEDS: INSULIN LISPRO 100 UNIT/ML SUB-Q SCH ×4 (00:40→18:32)
[2021-10-31] MEDS: fentaNYL 100 MCG/2 ML INJ IV PRN (05:00)
[2021-10-31] MEDS: fentaNYL DRIP Premix 2,000 MCG/100 ML BAG IV SCH ×4 (05:08→21:13)
[2021-10-31] MEDS: ACETAMINOPHEN 325 MG TAB PO PRN (05:08)
[2021-10-31 05:20] LABS: Hematocrit 33.2 % (30.3-42.9); Hemoglobin 10.4 gm/dl (10.1-14.3); Mean Corpuscular HGB Conc 31 % (30-34); Mean Corpuscular Volume 84 fl (79-97); Platelet Count 153 K/mm3 (140-440); Red Blood Count 3.94 M/mm3 (3.65-5.03); Red Cell Distribution Width 15.2 % (13.2-15.2)
[2021-10-31 05:49] LABS: Calcium 7.9 mg/dL (8.4-10.2)
[2021-10-31] MEDS ORDERED: SODIUM BICARBONATE 325 MG TAB FEEDTUBE PRN (08:56)
[2021-10-31] MEDS ORDERED: LIPASE 10,500/PROTEASE 25,000/AMYLASE 43,750 (UNITS) DR CAP FEEDTUBE PRN (08:56)
[2021-10-31] MEDS ORDERED: SIMPLE SYRUP 15 ML FEEDTUBE PRN ×2 (08:56)
[2021-10-31] MEDS ORDERED: POTASSIUM CHLORIDE 20 MEQ PACKET FEEDTUBE SCH (09:00)
[2021-10-31] MEDS: SENNOSIDES/DOCUSATE SODIUM 8.6/50 MG TAB FEEDTUBE SCH ×2 (10:03→21:12)
[2021-10-31] MEDS: FAMOTIDINE 20 MG/2 ML INJ IV SCH ×2 (10:03→21:12)
[2021-10-31] MEDS: HEPARIN/ 0.45% NACL DRIP 25,000 UNIT/500 ML BAG IV SCH (10:35)
--- NOTE | 2021-10-31 12:15 | Progress Note ---
Assessment and Plan Patient is a 66-year-old female with unknown past medical history brought into the ED following outside of hospital cardiac arrest thought to be PEA with thought to have downtime of 7 to 9 minutes however details are unclear S/P PEA cardiopulmonary arrest Acute hypoxic respiratory failure-pulm following Septic shock Aspiration pneumonia Pneumothorax- s/p CT Acute DVT-on Heparin gtt Hypokalemia Transaminitis Echo 10/30/2021-technically difficult study due to body habitus. EF 25 to 30%. Right ventricular systolic function is normal. No pericardial effusion Plan: EKG showed no acute ischemic changes No BB due to soft BP and patient on pressors No LAYO/ ARB due to elevated creatinine and soft BP Continue anticoagulation for DVT Patient seen in conjunction with Dr. Cueto who agrees with this plan of care 30minutes of critical care time spent in coordination of care of patient - Patient Problems (1) Cardiopulmonary arrest Current Visit: Yes Status: Acute (2) Hypokalemia Current Visit: Yes Status: Acute (3) Transaminitis Current Visit: Yes Status: Acute (4) Aspiration pneumonia Current Visit: Yes Status: Acute (5) Acute hypoxemic respiratory failure Current Visit: Yes Status: Acute (6) Septic shock Current Visit: Yes Status: Acute (7) Toxic metabolic encephalopathy Current Visit: Yes Status: Acute (8) Shock liver Current Visit: Yes Status: Acute Subjective Date of service: 10/31/21 Principal diagnosis: Cardiopulmonary arrest Interval history: Patient remains intubated and sedated Sinus 90s on monitor with PVCs Objective Vital Signs Temp Pulse Pulse Resp BP Pulse Ox 10/31/21 11:36 98.7 F 10/31/21 11:30 87 22 100/68 100 10/31/21 11:01 86 22 105/64 100 10/31/21 10:30 90 22 117/78 100 10/31/21 10:16 104 H 22 109/74 100 10/31/21 10:00 91 H 22 109/74 100 10/31/21 09:45 94 H 21 113/78 100 10/31/21 09:30 85 22 103/71 100 10/31/21 09:15 87 21 105/70 100 10/31/21 09:00 90 22 115/71 100 10/31/21 08:46 93 H 22 110/68 100 10/31/21 08:30 92 H 21 130/85 100 10/31/21 08:15 87 22 121/85 96 10/31/21 08:01 88 10/31/21 08:00 99 F 91 H 95 H 22 140/81 100 10/31/21 07:49 83 125/78 96 10/31/21 07:45 82 22 125/78 96 10/31/21 07:30 86 22 129/80 96 10/31/21 07:15 92 H 22 135/78 94 10/31/21 07:14 99.0 F 10/31/21 07:00 94 H 22 136/85 94 10/31/21 06:45 82 22 118/72 100 10/31/21 06:30 81 22 124/74 100 10/31/21 06:15 84 22 118/74 100 10/31/21 06:00 84 22 116/71 100 10/31/21 05:45 89 22 115/71 100 10/31/21 05:30 96 H 22 116/70 97 10/31/21 05:16 98 H 22 117/72 97 10/31/21 05:00 114 H 21 129/66 10/31/21 04:46 95 H 22 129/66 100 10/31/21 04:39 98 H 137/71 100 10/31/21 04:30 100 H 22 137/71 100 10/31/21 04:16 102 H 22 119/75 98 10/31/21 04:00 132 H 109 H 22 121/75 98 10/31/21 03:45 85 22 121/75 100 10/31/21 03:35 99.3 F 10/31/21 03:30 86 22 123/66 100 10/31/21 03:15 86 22 116/68 100 10/31/21 03:00 87 22 117/76 98 10/31/21 02:45 91 H 22 126/77 100 10/31/21 02:30 95 H 22 131/71 98 10/31/21 02:15 86 22 112/75 100 10/31/21 02:00 83 22 120/68 100 10/31/21 01:45 83 22 109/69 100 10/31/21 01:30 91 H 21 124/75 100 10/31/21 01:15 89 22 116/75 100 10/31/21 01:00 94 H 22 110/71 100 10/31/21 00:45 86 22 101/74 100 10/31/21 00:30 86 22 102/72 100 10/31/21 00:15 89 22 107/70 98 10/31/21 00:00 100.1 F H 94 H 109 H 22 114/70 97 10/30/21 23:45 91 H 22 105/59 96 10/30/21 23:30 97 H 22 107/65 100 10/30/21 23:17 99 H 124/69 95 10/30/21 23:16 106 H 22 124/69 93 10/30/21 23:00 105 H 22 124/71 92 10/30/21 22:45 101 H 22 118/79 100 10/30/21 22:30 112 H 22 136/77 99 10/30/21 22:15 84 22 115/68 99 10/30/21 22:00 88 22 108/68 100 10/30/21 21:45 84 22 107/73 100 10/30/21 21:30 82 22 107/67 100 10/30/21 21:15 111 H 22 110/76 100 10/30/21 21:00 111 H 22 118/81 99 10/30/21 20:48 111 H 22 112/77 100 10/30/21 20:45 114 H 22 112/77 100 10/30/21 20:30 111 H 22 122/82 100 10/30/21 20:15 110 H 22 116/78 100 10/30/21 20:00 99.2 F 111 H 109 H 22 108/68 100 10/30/21 19:45 114 H 22 112/70 100 10/30/21 19:30 116 H 22 108/71 100 10/30/21 19:18 118 H 96/67 95 10/30/21 19:15 111 H 22 96/67 100 10/30/21 19:00 111 H 22 93/62 100 10/30/21 18:45 110 H 22 100/64 100 10/30/21 18:30 111 H 22 99/62 100 10/30/21 18:15 111 H 22 98/70 100 10/30/21 18:14 100.2 F H 10/30/21 18:00 114 H 22 86/55 100 10/30/21 17:45 116 H 22 89/62 100 10/30/21 17:30 119 H 22 86/62 100 10/30/21 17:16 120 H 22 113/77 98 10/30/21 17:00 105/73 100 10/30/21 16:47 101.3 F H 10/30/21 16:46 115 H 22 87/58 100 10/30/21 16:30 116 H 22 87/58 100 10/30/21 16:16 117 H 22 90/60 100 10/30/21 16:00 119 H 116 H 22 101/78 100 10/30/21 15:46 108 H 22 97/69 100 10/30/21 15:44 108 H 114/78 100 10/30/21 15:30 109 H 20 114/78 95 10/30/21 15:15 107 H 22 104/71 98 10/30/21 15:00 106 H 22 90/67 100 10/30/21 14:45 106 H 22 107/51 100 10/30/21 14:30 106 H 22 108/72 100 10/30/21 14:15 94 H 22 96/63 99 10/30/21 14:00 93 H 22 94/58 98 10/30/21 13:46 106 H 22 103/76 97 10/30/21 13:30 110 H 22 107/70 100 10/30/21 13:15 130 H 22 103/69 100 10/30/21 13:00 116 H 14 101/72 100 10/30/21 12:45 129 H 15 93/59 10/30/21 12:30 146 H 22 85/57 99 10/30/21 12:15 149 H 22 78/48 99 - Physical Examination General: Other (Intubated and sedated) HEENT: Positive: Normocephaly Cardiac: Positive: Reg Rate and Rhythm Lungs: Positive: Ventilated Respirations Neuro: Positive: Other (Unable to assess due to intubation sedated) Abdomen: Positive: Soft Skin: Negative: Rash, Suspicious Lesions Extremities: Present: upper extr. pulses, edema - Labs and Meds Cardiac Enzymes 10/30/21 Range/Units Unknown Lactate Dehydrogenase 469 H (91-180) units/L Coagulation 10/30/21 Range/Units 16:30 PT 17.2 H (12.2-14.9) Sec. INR 1.27 H (0.87-1.13) APTT 44.4 H (24.2-36.6) Sec. CBC 10/30/21 10/31/21 Range/Units 16:30 04:30 WBC 14.4 H (4.5-11.0) K/mm3 RBC 3.94 (3.65-5.03) M/mm3 Hgb 10.2 10.4 (10.1-14.3) gm/dl Hct 32.7 33.2 (30.3-42.9) % Plt Count 163 153 (140-440) K/mm3 Comprehensive Metabolic Panel 10/31/21 Range/Units 04:30 Sodium 143 (137-145) mmol/L Potassium 3.5 L (3.6-5.0) mmol/L Chloride 107.5 H (98-107) mmol/L Carbon Dioxide 20 L (22-30) mmol/L BUN 28 H (7-17) mg/dL Creatinine 1.7 H (0.6-1.2) mg/dL Glucose 113 H (65-100) mg/dL Calcium 7.9 L (8.4-10.2) mg/dL - Imaging and Cardiology Echo: report reviewed - Telemetry EKG Rhythm: Sinus Rhythm - EKG Sinus rhythms and dysrhythmias: sinus rhythm Ventricular dysrhythmias: ventricular premature com
--- NOTE | 2021-10-31 12:33 | Progress Note ---
Assessment and Plan Acute hypoxemic respiratory failure on MVS Cardiac arrest with ROSC Acute DVT Right pneumothorax Shock (septic +/- cardiogenic) Possible aspiration pneumonia SIERRA Altered mental status/acute encephalopathy Elevated serum transaminases, likely shock liver Metabolic acidosis Obesity Leukocytosis Hypokalemia Lactic acidosis - RN asked to reduce sedation - get stat ABG and address - get urine lytes re: SIERRA - replace Potassium - IVNS @ 75mls/hr X 2 liters - repeat lactic acid level - prn vasopressors for target MAP > 65 mmHg (off Levophed now) - continue full anticoagulation with IV Heparin re: DVT - cardiology evaluation ongoing re: CHF - continue Daily SAT and SBT assessment as tolerated - continue to wean supplemental oxygen for target O2 sat's > 90% acutely - VAP bundle addressed - continue lung protective strategies - continue bronchodilators with pulmonary hygiene per RT - wean per pulmonary driven protocols otherwise - continue accuchecks with glycemic control per SSI (While critically ill target blood glucose of 140-180 mg/dL; avoid hypoglycemia) - sedation prn for target RASS 0 to -1 - avoid nephrotoxins, renally dose all medications - continue to avoid benzodiazepine's, reduce the possibility of delirium - AB's per ID rec's - prn analgesia per CPOT score - Maintenance of sleep-wake cycle, avoid delirium - continue enteral nutritional support at goal rate as tolerated - G.I. & VTE prophylaxis - PT/OT/ROM exercises - continue mobility protocols for pressure ulcer prophylaxis - Monitor hemodynamics closely - continue other care per attending / other consultants - discharge planning ongoing concurrently COVID SPECIFIC INTERVENTIONS - COVID-19 PCR negative .... Re-evaluate in am & prn CONDITION: CRITICAL PROGNOSIS: GUARDED CODE STATUS: FULL CODE The high probability of a clinically significant, sudden or life-threatening deterioration of the [respiratory, cardiovascular, renal & neurologic] system(s) required my full and direct attention, intervention and personal management. The aggregate critical care time was [35] minutes without overlap. Time includes spent on; [x] Data Review and interpretation [x] Patient assessment and monitoring of vital signs [x] Documentation [x] Medication orders and management Subjective Date of service: 10/31/21 Principal diagnosis: AHRF; Cardiac arrest; R. pneumothorax; pneumonia; AMS; DVT's; SIERRA; Obesity Interval history: Patient is seen today for: Acute hypoxemic respiratory failure; Cardiac arrest with ROSC; Right pneumothorax; pneumonia; AMS; bilateral DVT's; SIERRA; Obesity Seen and examined at bedside; 24hour events reviewed; nursing and respiratory care staff consulted; no adverse overnight events reported to me; remains on MVS; FiO2 reduced to 40%; riding the set rate on MVS but ABG pending; followed simple commands during SAT per RN; No N/V/F/C; no gross bleeding on IV Heparin Objective Vital Signs - 12hr 10/31/21 10/31/21 10/31/21 00:45 01:00 01:15 Temperature Pulse Rate 86 94 H 89 Pulse Rate [ From Monitor] Respiratory Rate Blood Pressure 101/74 110/71 116/75 O2 Sat by Pulse 100 100 100 Oximetry 10/31/21 10/31/21 10/31/21 01:30 01:45 02:00 Temperature Pulse Rate 91 H 83 83 Pulse Rate [ From Monitor] Respiratory Rate Blood Pressure 124/75 109/69 120/68 O2 Sat by Pulse 100 100 100 Oximetry 10/31/21 10/31/21 10/31/21 02:15 02:30 02:45 Temperature Pulse Rate 86 95 H 91 H Pulse Rate [ From Monitor] Respiratory Rate Blood Pressure 112/75 131/71 126/77 O2 Sat by Pulse 100 98 100 Oximetry 10/31/21 10/31/21 10/31/21 03:00 03:15 03:30 Temperature Pulse Rate 87 86 86 Pulse Rate [ From Monitor] Respiratory Rate Blood Pressure 117/76 116/68 123/66 O2 Sat by Pulse 98 100 100 Oximetry 10/31/21 10/31/21 10/31/21 03:35 03:45 04:00 Temperature 99.3 F Pulse Rate 85 132 H Pulse Rate [ 109 H From Monitor] Respiratory Rate Blood Pressure 121/75 121/75 O2 Sat by Pulse 100 98 Oximetry 10/31/21 10/31/21 10/31/21 04:16 04:30 04:39 Temperature Pulse Rate 102 H 100 H 98 H Pulse Rate [ From Monitor] Respiratory Rate Blood Pressure 119/75 137/71 137/71 O2 Sat by Pulse 98 100 100 Oximetry 10/31/21 10/31/21 10/31/21 04:46 05:00 05:16 Temperature Pulse Rate 95 H 114 H 98 H Pulse Rate [ From Monitor] Respiratory Rate Blood Pressure 129/66 129/66 117/72 O2 Sat by Pulse 100 97 Oximetry 10/31/21 10/31/21 10/31/21 05:30 05:45 06:00 Temperature Pulse Rate 96 H 89 84 Pulse Rate [ From Monitor] Respiratory Rate Blood Pressure 116/70 115/71 116/71 O2 Sat by Pulse 97 100 100 Oximetry 10/31/21 10/31/21 10/31/21 06:15 06:30 06:45 Temperature Pulse Rate 84 81 82 Pulse Rate [ From Monitor] Respiratory Rate Blood Pressure 118/74 124/74 118/72 O2 Sat by Pulse 100 100 100 Oximetry 10/31/21 10/31/21 10/31/21 07:00 07:14 07:15 Temperature 99.0 F Pulse Rate 94 H 92 H Pulse Rate [ From Monitor] Respiratory Rate Blood Pressure 136/85 135/78 O2 Sat by Pulse 94 94 Oximetry 10/31/21 10/31/21 10/31/21 07:30 07:45 07:49 Temperature Pulse Rate 86 82 83 Pulse Rate [ From Monitor] Respiratory Rate Blood Pressure 129/80 125/78 125/78 O2 Sat by Pulse 96 96 96 Oximetry 10/31/21 10/31/21 10/31/21 08:00 08:01 08:15 Temperature 99 F Pulse Rate 91 H 88 87 Pulse Rate [ 95 H From Monitor] Respiratory Rate Blood Pressure 140/81 121/85 O2 Sat by Pulse 100 96 Oximetry 10/31/21 10/31/21 10/31/21 08:30 08:46 09:00 Temperature Pulse Rate 92 H 93 H 90 Pulse Rate [ From Monitor] Respiratory Rate Blood Pressure 130/85 110/68 115/71 O2 Sat by Pulse 100 100 100 Oximetry 10/31/21 10/31/21 10/31/21 09:15 09:30 09:45 Temperature Pulse Rate 87 85 94 H Pulse Rate [ From Monitor] Respiratory Rate Blood Pressure 105/70 103/71 113/78 O2 Sat by Pulse 100 100 100 Oximetry 10/31/21 10/31/21 10/31/21 10:00 10:16 10:30 Temperature Pulse Rate 91 H 104 H 90 Pulse Rate [ From Monitor] Respiratory 22 22 22 Rate Blood Pressure 109/74 109/74 117/78 O2 Sat by Pulse 100 100 100 Oximetry 10/31/21 10/31/21 10/31/21 11:01 11:30 11:36 Temperature 98.7 F Pulse Rate 86 87 Pulse Rate [ From Monitor] Respiratory 22 Rate Blood Pressure 105/64 100/68 O2 Sat by Pulse 100 100 Oximetry 10/31/21 12:12 Temperature Pulse Rate 90 Pulse Rate [ From Monitor] Respiratory Rate Blood Pressure 109/62 O2 Sat by Pulse 100 Oximetry Constitutional: no acute distress, other (elderly obese femal with normal respiratory effort at rest on MVS) Eyes: non-icteric ENT: oropharynx moist, other (ETT 23 cm KRYSTAL) Neck: supple, no lymphadenopathy, no JVD Effort: normal Ascultation: Bilateral: diminished breath sounds, rhonchi (scant) Percussion: Bilateral: not dull Cardiovascular: regular rate and rhythm Gastrointestinal: normoactive bowel sounds, soft, non-tender, non-distended (protuberant) Extremities: no cyanosis, no edema, pulses normal, no ischemia or petechiae Neurologic: pupils equal and round, unable to assess Psychiatric: other (unable to assess re: AMS) CBC and BMP: 10/31/21 04:30 10/31/21 04:30 ABG, PT/INR, D-dimer: ABG ABG pH 7.412 pH Units (7.350-7.450) 10/30/21 04:35 ABG pCO2 34.1 mm Hg 10/30/21 04:35 ABG pO2 69.5 mm Hg (80.0-90.0) L 10/30/21 04:35 ABG O2 Saturation 95.6 % (95.0-99.0) 10/30/21 04:35 PT/INR, D-dimer PT 17.2 Sec. (12.2-14.9) H 10/30/21 16:30 INR 1.27 (0.87-1.13) H 10/30/21 16:30 D-Dimer > 97622 ng/mlDDU (0-234) H 10/30/21 Unknown Abnormal lab findings: Abnormal Labs 10/29/21 10/29/21 10/29/21 15:10 15:10 15:10 WBC 27.8 H MCH 27 L RDW Lymph % (Auto) Lymph # (Auto) [place] # (Auto) Seg Neutrophils % Seg Neuts % (Manual) 78.0 H Lymphocytes % (Manual) 10.0 L Seg Neutrophils # Seg Neutrophils # Man 21.7 H Monocytes # (Manual) 1.4 H PT INR APTT D-Dimer Heparin Anti-Xa Level ABG pH ABG pO2 ABG O2 Saturation ABG Base Excess Oxyhemoglobin Sodium Potassium Chloride Carbon Dioxide BUN Creatinine Glucose POC Glucose Hemoglobin A1c Lactic Acid 6.80 H* Calcium Magnesium Ferritin AST ALT Alkaline Phosphatase Lactate Dehydrogenase Troponin T 0.089 H C-Reactive Protein Total Protein Albumin LDL Cholesterol Direct Salicylates Acetaminophen 10/29/21 10/29/21 10/29/21 15:10 15:10 15:10 WBC MCH RDW Lymph % (Auto) Lymph # (Auto) [place] # (Auto) Seg Neutrophils % Seg Neuts % (Manual) Lymphocytes % (Manual) Seg Neutrophils # Seg Neutrophils # Man Monocytes # (Manual) PT INR APTT D-Dimer Heparin Anti-Xa Level ABG pH ABG pO2 ABG O2 Saturation ABG Base Excess Oxyhemoglobin Sodium 136 L Potassium 2.8 L* Chloride 93.4 L Carbon Dioxide 20 L BUN Creatinine Glucose 330 H POC Glucose Hemoglobin A1c Lactic Acid Calcium Magnesium Ferritin AST 1013 H ALT 1289 H Alkaline Phosphatase 246 H Lactate Dehydrogenase Troponin T C-Reactive Protein Total Protein Albumin LDL Cholesterol Direct Salicylates < 0.3 L Acetaminophen 5.0 L 10/29/21 10/29/21 10/29/21 15:11 16:01 19:29 WBC MCH RDW Lymph % (Auto) Lymph # (Auto) [place] # (Auto) Seg Neutrophils % Seg Neuts % (Manual) Lymphocytes % (Manual) Seg Neutrophils # Seg Neutrophils # Man Monocytes # (Manual) PT INR APTT D-Dimer Heparin Anti-Xa Level ABG pH 7.307 L ABG pO2 64.1 L ABG O2 Saturation 90.8 L ABG Base Excess -2.9 L Oxyhemoglobin 89.3 L Sodium Potassium Chloride Carbon Dioxide BUN Creatinine Glucose POC Glucose Hemoglobin A1c Lactic Acid 2.60 H* Calcium Magnesium 2.90 H Ferritin AST ALT Alkaline Phosphatase Lactate Dehydrogenase Troponin T C-Reactive Protein Total Protein Albumin LDL Cholesterol Direct Salicylates Acetaminophen 10/29/21 10/29/21 10/30/21 19:40 22:34 04:30 WBC 16.2 H MCH 26 L RDW 15.5 H Lymph % (Auto) 6.2 L Lymph # (Auto) 1.0 L [place] # (Auto) 0.9 H Seg Neutrophils % 88.1 H Seg Neuts % (Manual) Lymphocytes % (Manual) Seg Neutrophils # 14.2 H Seg Neutrophils # Man Monocytes # (Manual) PT INR APTT D-Dimer Heparin Anti-Xa Level ABG pH ABG pO2 ABG O2 Saturation ABG Base Excess Oxyhemoglobin Sodium Potassium Chloride Carbon Dioxide BUN Creatinine Glucose POC Glucose Hemoglobin A1c Lactic Acid Calcium Magnesium Ferritin AST ALT Alkaline Phosphatase Lactate Dehydrogenase Troponin T 1.950 H* D 1.150 H* D C-Reactive Protein Total Protein Albumin LDL Cholesterol Direct 43 L Salicylates Acetaminophen 10/30/21 10/30/21 10/30/21 04:30 04:35 05:45 WBC MCH RDW Lymph % (Auto) Lymph # (Auto) [place] # (Auto) Seg Neutrophils % Seg Neuts % (Manual) Lymphocytes % (Manual) Seg Neutrophils # Seg Neutrophils # Man Monocytes # (Manual) PT INR APTT D-Dimer Heparin Anti-Xa Level ABG pH ABG pO2 69.5 L ABG O2 Saturation ABG Base Excess -2.7 L Oxyhemoglobin 94.7 L Sodium Potassium Chloride Carbon Dioxide 21 L BUN Creatinine Glucose 159 H POC Glucose 151 H Hemoglobin A1c Lactic Acid Calcium 7.9 L D Magnesium Ferritin AST 461 H ALT 686 H Alkaline Phosphatase 130 H Lactate Dehydrogenase Troponin T C-Reactive Protein Total Protein 5.6 L D Albumin 3.2 L LDL Cholesterol Direct Salicylates Acetaminophen 10/30/21 10/30/21 10/30/21 11:24 15:59 16:30 WBC MCH RDW Lymph % (Auto) Lymph # (Auto) [place] # (Auto) Seg Neutrophils % Seg Neuts % (Manual) Lymphocytes % (Manual) Seg Neutrophils # Seg Neutrophils # Man Monocytes # (Manual) PT 17.2 H INR 1.27 H APTT 44.4 H D-Dimer Heparin Anti-Xa Level ABG pH ABG pO2 ABG O2 Saturation ABG Base Excess Oxyhemoglobin Sodium Potassium Chloride Carbon Dioxide BUN Creatinine Glucose POC Glucose 153 H 109 H Hemoglobin A1c Lactic Acid Calcium Magnesium Ferritin AST ALT Alkaline Phosphatase Lactate Dehydrogenase Troponin T C-Reactive Protein Total Protein Albumin LDL Cholesterol Direct Salicylates Acetaminophen 10/30/21 10/30/21 10/30/21 23:00 Unknown Unknown WBC MCH RDW Lymph % (Auto) Lymph # (Auto) [place] # (Auto) Seg Neutrophils % Seg Neuts % (Manual) Lymphocytes % (Manual) Seg Neutrophils # Seg Neutrophils # Man Monocytes # (Manual) PT INR APTT D-Dimer > 18062 H Heparin Anti-Xa Level 0.82 H ABG pH ABG pO2 ABG O2 Saturation ABG Base Excess Oxyhemoglobin Sodium Potassium Chloride Carbon Dioxide BUN Creatinine Glucose POC Glucose Hemoglobin A1c Lactic Acid Calcium Magnesium Ferritin 208.4 H AST ALT Alkaline Phosphatase Lactate Dehydrogenase Troponin T C-Reactive Protein Total Protein Albumin LDL Cholesterol Direct Salicylates Acetaminophen 10/30/21 10/31/21 10/31/21 Unknown 04:30 04:30 WBC 14.4 H MCH 26 L RDW Lymph % (Auto) Lymph # (Auto) [place] # (Auto) Seg Neutrophils % Seg Neuts % (Manual) Lymphocytes % (Manual) Seg Neutrophils # Seg Neutrophils # Man Monocytes # (Manual) PT INR APTT D-Dimer Heparin Anti-Xa Level ABG pH ABG pO2 ABG O2 Saturation ABG Base Excess Oxyhemoglobin Sodium Potassium 3.5 L Chloride 107.5 H Carbon Dioxide 20 L BUN 28 H Creatinine 1.7 H Glucose 113 H POC Glucose Hemoglobin A1c Lactic Acid Calcium 7.9 L Magnesium Ferritin AST ALT Alkaline Phosphatase Lactate Dehydrogenase 469 H Troponin T C-Reactive Protein 13.40 H Total Protein Albumin LDL Cholesterol Direct Salicylates Acetaminophen 10/31/21 10/31/21 04:30 05:11 WBC MCH RDW Lymph % (Auto) Lymph # (Auto) [place] # (Auto) Seg Neutrophils % Seg Neuts % (Manual) Lymphocytes % (Manual) Seg Neutrophils # Seg Neutrophils # Man Monocytes # (Manual) PT INR APTT D-Dimer Heparin Anti-Xa Level ABG pH ABG pO2 ABG O2 Saturation ABG Base Excess Oxyhemoglobin Sodium Potassium Chloride Carbon Dioxide BUN Creatinine Glucose POC Glucose 106 H Hemoglobin A1c 6.7 H Lactic Acid Calcium Magnesium Ferritin AST ALT Alkaline Phosphatase Lactate Dehydrogenase Troponin T C-Reactive Protein Total Protein Albumin LDL Cholesterol Direct Salicylates Acetaminophen Chest x-ray: image reviewed (tubes and lines in good position + bilateral infiltrates and [id number] fullness) Allied health notes reviewed: nursing
--- NOTE | 2021-10-31 13:46 | Progress Note ---
<LEONORSHANTE JaredUmair - Last Filed: 10/31/21 17:59> Assessment and Plan Assessment and plan: This is a 66-year-old female with past medical history of HTN and Obesity admitted for septic shock, s/p cardiac arrest with ROSC in the field now intubated and on ventilatory support Neuro: Acute Metabolic encephalopathy -Avoid delirium -Reorientation as needed -Sedated with fentanyl -RASS goal 0 to -1 -As needed analgesia -Maintain sleep-wake cycle -CT head no acute focal parenchymal lesion in the brain Cardiac: S/p cardiac arrest, ? Cardiogenic shock -Outside hospital cardiac arrest with ROSC -Cardiology consulted, appreciate recommendations -Vasopressor support with levophed (titrated off this AM) -MAP goal greater than 65 -Echocardiogram shows left ventricular systolic function severely decreased, LVEF 25 to 30%, no pericardial effusion -proBNP 5622 Respiratory: Acute hypoxic/hypercapnic respiratory failure, right pneumothorax -[facility] consulted, appreciate recommendations -A.m. vent settings: Assist-control rate 22, tidal volume 500, PEEP 8, FiO2 50% -See RT notes for titration -AM CXR noted -ABG pending -VAP bundle -SPO2 monitoring -Right chest tube to wall suction -Past 24 hours drainage: 20 mL GI: Protein calorie malnutrion, transaminitis likely shocked liver -24 hours 151 mL -PPI -NTR consulted for tube feedings -Trend LFTs : Acute kidney injury likely secondary to vasomotor nephropathy, hypokalemia -Cr increased today to 1.7 -Strict intake and output -Renally dose medications -Avoid nephrotoxic medications -Daily weights -FWF started today -replete potassium -Trend BMP -Obtain urine lytes -Consider nephrology consult and renal ultrasound if worsen -MIVF for 2 L per [facility] ID: Septic shock secondary to aspiration pneumonia, lactic acidosis -COVID-19 PCR negative -Antibiotic therapy with Rocephin and azithromycin () -Follow-up culture data -Monitor WBC and temperature curve -Repeat [place] Endo: Hyperglycemia -Avoid hypoglycemia -Hbg A1C 6.7 -SSI -Accu-Cheks q. 6 Heme: Acute DVT in the left posterior tibial vein and bilateral peroneal veins, Leukocytosis -D-dimer greater than 10,000 -CTA chest with no evidence of PE -Bilateral lower extremity ultrasound positive for DVT -Heparin gtt -Trend CBC -SCDs to BLE while in bed -Transfuse hemoglobin less than 7 -Monitor for signs of bleeding The high probability of a clinically significant, sudden or life threatening deterioration of the [multi] system(s) required my full and direct attention, intervention and personal management. The aggregate critical care time was [60] minutes. This time is in addition to time spent performing reported procedures but includes the following: [x] Data Review and interpretation [x] Patient assessment and monitoring of vital signs [x] Documentation [x] Medication orders and management Disposition Plan: icu Total Time Spent with Patient (Minutes): 60 History Interval history: This is a 66-year-old female with HTN and obesity who presented to the hospital on 10/29 via EMS with s/p cardiac arrest with CPR initiated by bystanders and upon EMS arrival a David airway was placed and ACLS was initiated. Patient had ROSC after 5-7 minutes and was started on epinephrine in route for hemodynamic support. Upon arrival to the emergency department patient GCS was noted to be 3 and she was biting the endotracheal tube with dilated pupils and copious vomitus and gastric secretions in the oropharynx/mouth/neck. David airway was removed and patient was intubated in the emergency department. Patient was admitted to the hospitalist service s/p cardiac arrest on sepsis and pneumonia protocol with consults to [facility]. Cardiology was consulted upon arrival to ICU. Hospital Course to Date: 10/30: Intubated and sedated, on fentanyl gtt. Open eyes spontaneously but does not follow any commands. On vasopressors, titrate as tolerated for MAP above 65. Patient febrile overnight, continue empiric IV Abx, culture data and COVID PCR pending. Patient is also s/p CT placement due to spontaneous pneumothorax. 2D echo is pending and Cardiology is consulted. 10/31: Patient remains intubated and following commands. Levophed drip stopped and potassium repleted. Patient started on tube feeding. Remains in soft bilateral restraints. Hospitalist Physical - Constitutional Vitals: Temp Pulse Resp BP Pulse Ox 98.7 F 90 22 109/62 100 10/31/21 11:36 10/31/21 12:12 10/31/21 11:30 10/31/21 12:12 10/31/21 12:12 General appearance: Present: no acute distress, obese, other (Intubated and Sedated) HEART Score - HEART Score Troponin: Troponin T 1.150 ng/mL (0.00-0.029) H* D 10/29/21 22:34 Results - Labs CBC & Chem 7: 10/31/21 04:30 10/31/21 04:30 Labs: Laboratory Last Values WBC 14.4 K/mm3 (4.5-11.0) H 10/31/21 04:30 RBC 3.94 M/mm3 (3.65-5.03) 10/31/21 04:30 Hgb 10.4 gm/dl (10.1-14.3) 10/31/21 04:30 Hct 33.2 % (30.3-42.9) 10/31/21 04:30 MCV 84 fl (79-97) 10/31/21 04:30 MCH 26 pg (28-32) L 10/31/21 04:30 MCHC 31 % (30-34) 10/31/21 04:30 RDW 15.2 % (13.2-15.2) 10/31/21 04:30 Plt Count 153 K/mm3 (140-440) 10/31/21 04:30 Lymph % (Auto) 6.2 % (13.4-35.0) L 10/30/21 04:30 Nance % (Auto) 5.5 % (0.0-7.3) 10/30/21 04:30 Eos % (Auto) 0.1 % (0.0-4.3) 10/30/21 04:30 Baso % (Auto) 0.1 % (0.0-1.8) 10/30/21 04:30 Lymph # (Auto) 1.0 K/mm3 (1.2-5.4) L 10/30/21 04:30 Nance # (Auto) 0.9 K/mm3 (0.0-0.8) H 10/30/21 04:30 Eos # (Auto) 0.0 K/mm3 (0.0-0.4) 10/30/21 04:30 Baso # (Auto) 0.0 K/mm3 (0.0-0.1) 10/30/21 04:30 Add Manual Diff Complete 10/29/21 15:10 Total Counted 100 10/29/21 15:10 Seg Neutrophils % 88.1 % (40.0-70.0) H 10/30/21 04:30 Seg Neuts % (Manual) 78.0 % (40.0-70.0) H 10/29/21 15:10 Band Neutrophils % 5.0 % 10/29/21 15:10 Lymphocytes % (Manual) 10.0 % (13.4-35.0) L 10/29/21 15:10 Reactive Lymphs % (Man) 0 % 10/29/21 15:10 Monocytes % (Manual) 5.0 % (0.0-7.3) 10/29/21 15:10 Eosinophils % (Manual) 0 % (0.0-4.3) 10/29/21 15:10 Basophils % (Manual) 0 % (0.0-1.8) 10/29/21 15:10 Metamyelocytes % 2.0 % 10/29/21 15:10 Myelocytes % 0 % 10/29/21 15:10 Promyelocytes % 0 % 10/29/21 15:10 Blast Cells % 0 % 10/29/21 15:10 Nucleated RBC % Not Reportable 10/29/21 15:10 Seg Neutrophils # 14.2 K/mm3 (1.8-7.7) H 10/30/21 04:30 Seg Neutrophils # Man 21.7 K/mm3 (1.8-7.7) H 10/29/21 15:10 Band Neutrophils # 1.4 K/mm3 10/29/21 15:10 Lymphocytes # (Manual) 2.8 K/mm3 (1.2-5.4) 10/29/21 15:10 Abs React Lymphs (Man) 0.0 K/mm3 10/29/21 15:10 Monocytes # (Manual) 1.4 K/mm3 (0.0-0.8) H 10/29/21 15:10 Eosinophils # (Manual) 0.0 K/mm3 (0.0-0.4) 10/29/21 15:10 Basophils # (Manual) 0.0 K/mm3 (0.0-0.1) 10/29/21 15:10 Metamyelocytes # 0.6 K/mm3 10/29/21 15:10 Myelocytes # 0.0 K/mm3 10/29/21 15:10 Promyelocytes # 0.0 K/mm3 10/29/21 15:10 Blast Cells # 0.0 K/mm3 10/29/21 15:10 WBC Morphology Not Reportable 10/29/21 15:10 Hypersegmented Neuts Not Reportable 10/29/21 15:10 Hyposegmented Neuts Not Reportable 10/29/21 15:10 Hypogranular Neuts Not Reportable 10/29/21 15:10 Smudge Cells Not Reportable 10/29/21 15:10 Toxic Granulation Not Reportable 10/29/21 15:10 Toxic Vacuolation Not Reportable 10/29/21 15:10 Dohle Bodies Not Reportable 10/29/21 15:10 Pelger-Huet Anomaly Not Reportable 10/29/21 15:10 Manny Rods Not Reportable 10/29/21 15:10 Platelet Estimate Consistent w auto 10/29/21 15:10 Clumped Platelets Not Reportable 10/29/21 15:10 Plt Clumps, EDTA Not Reportable 10/29/21 15:10 Large Platelets Not Reportable 10/29/21 15:10 Giant Platelets Not Reportable 10/29/21 15:10 Platelet Satelliting Not Reportable 10/29/21 15:10 Plt Morphology Comment Not Reportable 10/29/21 15:10 RBC Morphology Not Reportable 10/29/21 15:10 Dimorphic RBCs Not Reportable 10/29/21 15:10 Polychromasia Not Reportable 10/29/21 15:10 Hypochromasia Not Reportable 10/29/21 15:10 Poikilocytosis 1+ 10/29/21 15:10 Anisocytosis Not Reportable 10/29/21 15:10 Microcytosis 1+ 10/29/21 15:10 Macrocytosis Not Reportable 10/29/21 15:10 Spherocytes Not Reportable 10/29/21 15:10 Pappenheimer Bodies Not Reportable 10/29/21 15:10 Sickle Cells Not Reportable 10/29/21 15:10 Target Cells Not Reportable 10/29/21 15:10 Tear Drop Cells Not Reportable 10/29/21 15:10 Ovalocytes Few 10/29/21 15:10 Helmet Cells Not Reportable 10/29/21 15:10 Maradiaga-Mayview Bodies Not Reportable 10/29/21 15:10 [place] Rings Not Reportable 10/29/21 15:10 [place] Cells Not Reportable 10/29/21 15:10 Bite Cells Not Reportable 10/29/21 15:10 Crenated Cell Not Reportable 10/29/21 15:10 Elliptocytes Few 10/29/21 15:10 Acanthocytes (Spur) Not Reportable 10/29/21 15:10 Rouleaux Not Reportable 10/29/21 15:10 Hemoglobin C Crystals Not Reportable 10/29/21 15:10 Schistocytes Not Reportable 10/29/21 15:10 Malaria parasites Not Reportable 10/29/21 15:10 Magdy Bodies Not Reportable 10/29/21 15:10 Hem Pathologist Commnt No 10/29/21 15:10 PT 17.2 Sec. (12.2-14.9) H 10/30/21 16:30 INR 1.27 (0.87-1.13) H 10/30/21 16:30 APTT 44.4 Sec. (24.2-36.6) H 10/30/21 16:30 D-Dimer > 78949 ng/mlDDU (0-234) H 10/30/21 Unknown Heparin Anti-Xa Level 0.69 U.I./ml (0.3-0.7) 10/31/21 06:26 ABG pH 7.412 pH Units (7.350-7.450) 10/30/21 04:35 ABG pCO2 34.1 mm Hg 10/30/21 04:35 ABG pO2 69.5 mm Hg (80.0-90.0) L 10/30/21 04:35 ABG HCO3 21.2 mmol/L (20.0-26.0) 10/30/21 04:35 ABG O2 Saturation 95.6 % (95.0-99.0) 10/30/21 04:35 ABG O2 Content 18.2 (0.0-44) 10/29/21 16:01 ABG Base Excess -2.7 mmol/L (-2.0-3.0) L 10/30/21 04:35 ABG Hemoglobin 12.0 gm/dl (12.0-16.0) 10/30/21 04:35 ABG Carboxyhemoglobin 0.6 % (0.0-5.0) 10/30/21 04:35 ABG Methemoglobin 0.3 % (0.0-1.5) 10/30/21 04:35 Oxyhemoglobin 94.7 % (95.0-99.0) L 10/30/21 04:35 FiO2 80 % 10/30/21 04:35 Sodium 143 mmol/L (137-145) 10/31/21 04:30 Potassium 3.5 mmol/L (3.6-5.0) L 10/31/21 04:30 Chloride 107.5 mmol/L (98-107) H 10/31/21 04:30 Carbon Dioxide 20 mmol/L (22-30) L 10/31/21 04:30 Anion Gap 19 mmol/L 10/31/21 04:30 BUN 28 mg/dL (7-17) H 10/31/21 04:30 Creatinine 1.7 mg/dL (0.6-1.2) H 10/31/21 04:30 Estimated GFR 36 ml/min 10/31/21 04:30 BUN/Creatinine Ratio 16 % 10/31/21 04:30 Glucose 113 mg/dL (65-100) H 10/31/21 04:30 POC Glucose 95 mg/dL (70-105) 10/31/21 10:56 Hemoglobin A1c 6.7 % (4-6) H 10/31/21 04:30 Lactic Acid 2.00 mmol/L (0.7-2.0) 10/29/21 22:34 Calcium 7.9 mg/dL (8.4-10.2) L 10/31/21 04:30 Phosphorus 3.10 mg/dL (2.5-4.5) 10/31/21 04:30 Magnesium 1.70 mg/dL (1.7-2.3) 10/31/21 04:30 Ferritin 208.4 ng/mL (10.0-200.0) H 10/30/21 Unknown Total Bilirubin 0.40 mg/dL (0.1-1.2) 10/30/21 04:30 AST 461 units/L (5-40) H 10/30/21 04:30 ALT 686 units/L (7-56) H 10/30/21 04:30 Alkaline Phosphatase 130 units/L (35-129) H 10/30/21 04:30 Ammonia 31.0 umol/L (25-60) 10/29/21 15:10 Lactate Dehydrogenase 469 units/L (91-180) H 10/30/21 Unknown Troponin T 1.150 ng/mL (0.00-0.029) H* D 10/29/21 22:34 C-Reactive Protein 13.40 mg/dL (0.00-1.30) H 10/30/21 Unknown Total Protein 5.6 g/dL (6.3-8.2) L D 10/30/21 04:30 Albumin 3.2 g/dL (3.9-5) L 10/30/21 04:30 Albumin/Globulin Ratio 1.3 % 10/30/21 04:30 Triglycerides 68 mg/dL (2-149) 10/29/21 19:40 Cholesterol 98 mg/dL (50-199) 10/29/21 19:40 LDL Cholesterol Direct 43 mg/dL (50-130) L 10/29/21 19:40 HDL Cholesterol 50 mg/dL (40-59) 10/29/21 19:40 Cholesterol/HDL Ratio 1.96 % 10/29/21 19:40 Procalcitonin 61.95 ng/mL (<0.15) 10/30/21 Unknown TSH 3.080 mlU/mL (0.270-4.200) 10/29/21 15:10 Urine Color Straw (Yellow) 10/29/21 18:15 Urine Turbidity Clear (Clear) 10/29/21 18:15 Urine pH 7.0 (5.0-7.0) 10/29/21 18:15 Ur Specific [place] 1.018 (1.003-1.030) 10/29/21 18:15 Urine Protein 100 mg/dl mg/dL (Negative) 10/29/21 18:15 Urine Glucose (UA) 150 mg/dL (Negative) 10/29/21 18:15 Urine Ketones Neg mg/dL (Negative) 10/29/21 18:15 Urine Blood Mod (Negative) 10/29/21 18:15 Urine Nitrite Neg (Negative) 10/29/21 18:15 Urine Bilirubin Neg (Negative) 10/29/21 18:15 Urine Urobilinogen < 2.0 mg/dL (<2.0) 10/29/21 18:15 Ur Leukocyte Esterase Neg (Negative) 10/29/21 18:15 Urine WBC (Auto) 5.0 /HPF (0.0-6.0) 10/29/21 18:15 Urine RBC (Auto) 2.0 /HPF (0.0-6.0) 10/29/21 18:15 U Epithel Cells (Auto) < 1.0 /HPF (0-13.0) 10/29/21 18:15 Urine Mucus Few /HPF 10/29/21 18:15 Salicylates < 0.3 mg/dL (2.8-20.0) L 10/29/21 15:10 Urine Opiates Screen Negative 10/29/21 18:15 Urine Methadone Screen Negative 10/29/21 18:15 Acetaminophen 5.0 ug/mL (10.0-30.0) L 10/29/21 15:10 Ur Barbiturates Screen Negative 10/29/21 18:15 Ur Phencyclidine Scrn Negative 10/29/21 18:15 Ur Amphetamines Screen Negative 10/29/21 18:15 U Benzodiazepines Scrn Negative 10/29/21 18:15 Urine Cocaine Screen Negative 10/29/21 18:15 U Marijuana (THC) Screen Negative 10/29/21 18:15 Drugs of Abuse Note Disclamer 10/29/21 18:15 Plasma/Serum Alcohol < 0.01 % (0-0.07) 10/29/21 15:10 Coronavirus (PCR) Negative (Negative) 10/30/21 Unknown Blood Type O POSITIVE 10/29/21 15:10 Antibody Screen Negative 10/29/21 15:10 Microbiology: Microbiology 10/29/21 Unknown Peripheral/Venous Blood Culture - Preliminary NO GROWTH AFTER 24 HOURS 10/29/21 Unknown Peripheral/Venous Blood Culture - Preliminary NO GROWTH AFTER 24 HOURS 10/29/21 16:15 Sputum - Expectorated Sputum Sputum Culture - Preliminary Gregory/IV: Voiding Method Indwelling Catheter Active Medications - Current Medications Current Medications: Generic Name Dose Route Start Last Admin Trade Name Freq PRN Reason Stop Dose Admin Acetaminophen 650 mg 10/29/21 17:04 10/31/21 05:08 Acetaminophen 325 Mg Tab PO 650 mg Q6H PRN Administration Pain, Mild (1-3) Acetaminophen 650 mg 10/29/21 17:04 Acetaminophen 650 Mg Rect Supp SD Q6H PRN Pain MILD(1-3)/Fever >100.5/NIEVES Lipase/Protease/Amylase 1 each 10/31/21 08:56 Lipase 10,500/Protease 25,000/Amylase 43,750 (Units) Dr Cap FEEDTUBE PRN PRN For Clogged Feeding Tube Dextrose 50 ml 10/30/21 15:21 Dextrose 50% In Water (25gm) 50 Ml Syringe IV Q30MIN PRN Hypoglycemia Protocol Famotidine 20 mg 10/29/21 15:00 10/31/21 10:03 Famotidine 20 Mg/2 Ml Inj IV 20 mg BID RAMON Administration Fentanyl 50 mcg 10/29/21 14:29 10/31/21 05:00 Fentanyl 100 Mcg/2 Ml Inj IV 50 mcg Q10MIN PRN Administration ANALGESIA Heparin Sodium (Porcine) 4,300 unit 10/30/21 17:00 Heparin 10,000 Units/10 Ml Vial 40 unit/kg (4300 unit) IV Q6H PRN Anti-Xa Assay < 0.1 units/ml Hydrophilic Ointment 1 applic 10/29/21 14:29 Lip Therapy Vaseline TP Q2HR PRN Dry Lips Fentanyl Citrate 2,000 mcg in 100 mls @ 5.67 mls/hr 10/29/21 15:00 10/31/21 10:03 Fentanyl Drip Premix IV 4 mcg/kg/hr TITR RAMON 22.68 mls/hr Administration Protocol 1 MCG/KG/HR NORepinephrine/NS 8 MG-250 ML 8 mg in 250 mls @ 3.75 mls/hr 10/29/21 15:00 10/31/21 08:35 Norepinephrine/Ns 8 Mg-250 Ml (Double Conc) IV 0 mcg/min TITRATE RAMON 0 mls/hr Titration Protocol 2 MCG/MIN Ceftriaxone Sodium 2 gm in 100 mls @ 200 mls/hr 10/29/21 18:00 10/30/21 19:08 Rocephin/Ns 2 Gm/100 Ml IV 11/02/21 18:29 Infused Q24H RAMON Infusion Protocol Azithromycin 500 mg in 250 mls @ 250 mls/hr 10/29/21 18:00 10/30/21 18:48 Zithromax/Ns IV 11/02/21 18:59 250 mls/hr Q24H RAMON Administration Protocol Heparin Sodium/Sodium Chloride 25,000 unit in 500 mls @ 30 mls/hr 10/30/21 17:00 10/31/21 10:35 Heparin/ 0.45% Nacl-25,000 Unit/500 Ml IV 1,400 units/hr TITR RAMON 28 mls/hr Administration Protocol 1,500 UNITS/HR Insulin Human Lispro 0 unit 10/30/21 16:00 10/31/21 11:55 Insulin Lispro 100 Unit/Ml SUB-Q Not Given Q6HR RAMON Protocol Multi-Ingred Cream/Lotion/Oil/Oint 1 applic 10/29/21 14:29 Mineral Oil/Petrolatum, White Ophth Oint 3.5 Gm OU Q4HR PRN Dry Eye(s) Senna/Docusate Sodium 1 tab 10/29/21 15:00 10/31/21 10:03 Sennosides/Docusate Sodium 8.6/50 Mg Tab FEEDTUBE 1 tab BID RAMON Administration Simple Syrup 15 ml 10/31/21 08:56 Simple Syrup 15 Ml FEEDTUBE PRN PRN Hypoglycemia Simple Syrup 30 ml 10/31/21 08:56 Simple Syrup 15 Ml FEEDTUBE PRN PRN Hypoglycemia Sodium Bicarbonate 325 mg 10/31/21 08:56 Sodium Bicarbonate 325 Mg Tab FEEDTUBE PRN PRN For Clogged Feeding Tube Sodium Chloride 10 ml 10/29/21 22:00 10/31/21 10:04 Sodium Chloride 0.9% 10 Ml Flush Syringe IV 10 ml BID RAMON Administration Sodium Chloride 10 ml 10/29/21 17:04 Sodium Chloride 0.9% 10 Ml Flush Syringe IV PRN PRN LINE FLUSH Nutrition/Malnutrition Assess - Dietary Evaluation Nutrition/Malnutrition Findings: Nutrition Notes Start: 10/30/21 09:50 Freq: Status: Active Protocol: Document 10/31/21 11:57 YOVANY (Rec: 10/31/21 12:08 YOVANY [id number]) Nutrition Notes Need for Assessment generated from: MD Order Initial or Follow up Reassessment Current Diagnosis Hypertension,Respiratory Failure Other Pertinent Diagnosis Septic shock, s/p cardiac arrest, pneumothorax, r/o COVID-19 Current Diet NPO Labs/Tests K 3.5 BUN 28 Cr 1.7 A1C 6.7 Pertinent Medications Heparin gtt, 40mEq KCl x 1 dose Height 5 ft 10 in Weight 106.7 kg [place]bert Body Weight (kg) 68.18 BMI 33.7 Weight Status Obese Subjective/Other Information RD consulted for TF. Pt remains on vent support. Burn Absent Trauma Absent Minimum of two criteria No #1 Nutrition Diagnosis Inadequate oral intake Diagnosis Progress(for reassessment Continues documentation) Is patient on ventilator? Yes Is Patient Ambulatory and/or Out of Bed No REE-([facility]-confined to bed) 2022.848 Kcal/Kg value to use for calculation 15 Approximate Energy Requirements Using 1601 kcal/Kg Calculation Used for Recommendations Kcal/kg Additional Notes Pro needs 2g/kg IBW: 136g/day Fluid needs 1ml/kcal Nutrition Intervention Nutrition Support: Vital HP at 60ml/hr. Provide 50ml water flush q4h. Kcal 1,440 Protein (gm) 126 Carbohydrates (gm) 161 Fat (gm) 33 Fluid (mL) 1,204 Goal #1 TF tolerance Goal #2 TF to meet 65-70% energy and at least 75% pro needs Follow-Up By: 11/02/21 Additional Comments F/U: new TF, vent status <ABRAM DIAS - Last Filed: 11/08/21 07:18> Assessment and Plan Assessment and plan: I saw and evaluated the patient. I agree with the findings and the plan of care as documented in the Nurse Practitioner's~note, with the following corrections and additions. Hospitalist Physical - Constitutional Vitals: Temp Pulse Resp BP Pulse Ox 99.2 F 65 14 140/81 98 11/08/21 04:00 11/08/21 07:02 11/08/21 04:00 11/08/21 07:02 11/08/21 07:02 HEART Score - HEART Score Troponin: Troponin T 1.150 ng/mL (0.00-0.029) H* D 10/29/21 22:34 Results - Labs CBC & Chem 7: 11/08/21 04:20 11/08/21 04:20 Labs: Laboratory Last Values WBC 22.1 K/mm3 (4.5-11.0) H 11/08/21 04:20 RBC 3.01 M/mm3 (3.65-5.03) L 11/08/21 04:20 Hgb 8.1 gm/dl (10.1-14.3) L 11/08/21 04:20 Hct 25.6 % (30.3-42.9) L 11/08/21 04:20 MCV 85 fl (79-97) 11/08/21 04:20 MCH 27 pg (28-32) L 11/08/21 04:20 MCHC 32 % (30-34) 11/08/21 04:20 RDW 15.4 % (13.2-15.2) H 11/08/21 04:20 Plt Count 237 K/mm3 (140-440) 11/08/21 04:20 Lymph % (Auto) 6.2 % (13.4-35.0) L 10/30/21 04:30 Nance % (Auto) 5.5 % (0.0-7.3) 10/30/21 04:30 Eos % (Auto) 0.1 % (0.0-4.3) 10/30/21 04:30 Baso % (Auto) 0.1 % (0.0-1.8) 10/30/21 04:30 Lymph # (Auto) 1.0 K/mm3 (1.2-5.4) L 10/30/21 04:30 Nance # (Auto) 0.9 K/mm3 (0.0-0.8) H 10/30/21 04:30 Eos # (Auto) 0.0 K/mm3 (0.0-0.4) 10/30/21 04:30 Baso # (Auto) 0.0 K/mm3 (0.0-0.1) 10/30/21 04:30 Add Manual Diff Complete 11/07/21 06:30 Total Counted 100 11/07/21 06:30 Seg Neutrophils % 88.1 % (40.0-70.0) H 10/30/21 04:30 Seg Neuts % (Manual) 77.0 % (40.0-70.0) H 11/07/21 06:30 Band Neutrophils % 1.0 % 11/07/21 06:30 Lymphocytes % (Manual) 11.0 % (13.4-35.0) L 11/07/21 06:30 Reactive Lymphs % (Man) 3.0 % 11/07/21 06:30 Monocytes % (Manual) 2.0 % (0.0-7.3) 11/07/21 06:30 Eosinophils % (Manual) 0 % (0.0-4.3) 11/07/21 06:30 Basophils % (Manual) 0 % (0.0-1.8) 11/07/21 06:30 Metamyelocytes % 1.0 % 11/07/21 06:30 Myelocytes % 5.0 % 11/07/21 06:30 Promyelocytes % 0 % 11/07/21 06:30 Blast Cells % 0 % 11/07/21 06:30 Nucleated RBC % 2.0 % (0.0-0.9) H 11/07/21 06:30 Seg Neutrophils # 14.2 K/mm3 (1.8-7.7) H 10/30/21 04:30 Seg Neutrophils # Man 12.3 K/mm3 (1.8-7.7) H 11/07/21 06:30 Band Neutrophils # 0.2 K/mm3 11/07/21 06:30 Lymphocytes # (Manual) 1.8 K/mm3 (1.2-5.4) 11/07/21 06:30 Abs React Lymphs (Man) 0.5 K/mm3 11/07/21 06:30 Monocytes # (Manual) 0.3 K/mm3 (0.0-0.8) 11/07/21 06:30 Eosinophils # (Manual) 0.0 K/mm3 (0.0-0.4) 11/07/21 06:30 Basophils # (Manual) 0.0 K/mm3 (0.0-0.1) 11/07/21 06:30 Metamyelocytes # 0.2 K/mm3 11/07/21 06:30 Myelocytes # 0.8 K/mm3 11/07/21 06:30 Promyelocytes # 0.0 K/mm3 11/07/21 06:30 Blast Cells # 0.0 K/mm3 11/07/21 06:30 WBC Morphology Not Reportable 11/07/21 06:30 Hypersegmented Neuts Not Reportable 11/07/21 06:30 Hyposegmented Neuts Not Reportable 11/07/21 06:30 Hypogranular Neuts Not Reportable 11/07/21 06:30 Smudge Cells Not Reportable 11/07/21 06:30 Toxic Granulation Not Reportable 11/07/21 06:30 Toxic Vacuolation Not Reportable 11/07/21 06:30 Dohle Bodies Not Reportable 11/07/21 06:30 Pelger-Huet Anomaly Not Reportable 11/07/21 06:30 Manny Rods Not Reportable 11/07/21 06:30 Platelet Estimate Consistent w auto 11/07/21 06:30 Clumped Platelets Not Reportable 11/07/21 06:30 Plt Clumps, EDTA Not Reportable 11/07/21 06:30 Large Platelets 1+ 11/07/21 06:30 Giant Platelets Not Reportable 11/07/21 06:30 Platelet Satelliting Not Reportable 11/07/21 06:30 Plt Morphology Comment Not Reportable 11/07/21 06:30 RBC Morphology Not Reportable 11/07/21 06:30 Dimorphic RBCs Not Reportable 11/07/21 06:30 Polychromasia Not Reportable 11/07/21 06:30 Hypochromasia 1+ 11/07/21 06:30 Poikilocytosis Not Reportable 11/07/21 06:30 Anisocytosis Not Reportable 11/07/21 06:30 Microcytosis Not Reportable 11/07/21 06:30 Macrocytosis Not Reportable 11/07/21 06:30 Spherocytes 1+ 11/07/21 06:30 Pappenheimer Bodies Not Reportable 11/07/21 06:30 Sickle Cells Not Reportable 11/07/21 06:30 Target Cells 1+ 11/07/21 06:30 Tear Drop Cells Not Reportable 11/07/21 06:30 Ovalocytes Not Reportable 11/07/21 06:30 Helmet Cells Not Reportable 11/07/21 06:30 [place] Bodies Not Reportable 11/07/21 06:30 [place] Rings Not Reportable 11/07/21 06:30 [place] Cells Not Reportable 11/07/21 06:30 Bite Cells Not Reportable 11/07/21 06:30 Crenated Cell Not Reportable 11/07/21 06:30 Elliptocytes Not Reportable 11/07/21 06:30 Acanthocytes (Spur) Not Reportable 11/07/21 06:30 Rouleaux Not Reportable 11/07/21 06:30 Hemoglobin C Crystals Not Reportable 11/07/21 06:30 Schistocytes Not Reportable 11/07/21 06:30 Malaria parasites Not Reportable 11/07/21 06:30 Magdy Bodies Not Reportable 11/07/21 06:30 Hem Pathologist Commnt No 11/07/21 06:30 PT 17.2 Sec. (12.2-14.9) H 10/30/21 16:30 INR 1.27 (0.87-1.13) H 10/30/21 16:30 APTT 44.4 Sec. (24.2-36.6) H 10/30/21 16:30 D-Dimer > 96080 ng/mlDDU (0-234) H 10/30/21 Unknown Heparin Anti-Xa Level 0.33 U.I./ml (0.3-0.7) 11/08/21 04:20 ABG pH 7.298 pH Units (7.350-7.450) L 11/07/21 12:15 ABG pCO2 69.6 mm Hg 11/07/21 12:15 ABG pO2 73.0 mm Hg (80.0-90.0) L 11/07/21 12:15 ABG HCO3 33.3 mmol/L (20.0-26.0) H 11/07/21 12:15 ABG O2 Saturation 94.4 % (95.0-99.0) L 11/07/21 12:15 ABG O2 Content 10.7 (0.0-44) 11/07/21 12:15 ABG Base Excess 5.8 mmol/L (-2.0-3.0) H 11/07/21 12:15 ABG Hemoglobin 8.2 gm/dl (12.0-16.0) L 11/07/21 12:15 ABG Carboxyhemoglobin 1.4 % (0.0-5.0) 11/07/21 12:15 ABG Methemoglobin 0.4 % (0.0-1.5) 11/07/21 12:15 Oxyhemoglobin 92.7 % (95.0-99.0) L 11/07/21 12:15 FiO2 35 % 11/07/21 12:15 Sodium 151 mmol/L (137-145) H 11/08/21 04:20 Potassium 3.1 mmol/L (3.6-5.0) L D 11/08/21 04:20 Chloride 107.3 mmol/L (98-107) H 11/08/21 04:20 Carbon Dioxide 31 mmol/L (22-30) H 11/08/21 04:20 Anion Gap 16 mmol/L 11/08/21 04:20 BUN 82 mg/dL (7-17) H 11/08/21 04:20 Creatinine 1.8 mg/dL (0.6-1.2) H 11/08/21 04:20 Estimated GFR 34 ml/min 11/08/21 04:20 BUN/Creatinine Ratio 46 % 11/08/21 04:20 Glucose 232 mg/dL (65-100) H 11/08/21 04:20 POC Glucose 198 mg/dL (70-105) H 11/08/21 06:16 Hemoglobin A1c 6.7 % (4-6) H 10/31/21 04:30 Lactic Acid 0.70 mmol/L (0.7-2.0) 10/31/21 15:45 Calcium 8.1 mg/dL (8.4-10.2) L 11/08/21 04:20 Phosphorus 4.90 mg/dL (2.5-4.5) H D 11/07/21 06:30 Magnesium 2.90 mg/dL (1.7-2.3) H 11/07/21 06:30 Ferritin 208.4 ng/mL (10.0-200.0) H 10/30/21 Unknown Total Bilirubin < 0.20 mg/dL (0.1-1.2) 11/06/21 02:35 AST 21 units/L (5-40) 11/06/21 02:35 ALT 77 units/L (7-56) H 11/06/21 02:35 Alkaline Phosphatase 84 units/L (35-129) 11/06/21 02:35 Ammonia 31.0 umol/L (25-60) 10/29/21 15:10 Lactate Dehydrogenase 469 units/L (91-180) H 10/30/21 Unknown Troponin T 1.150 ng/mL (0.00-0.029) H* D 10/29/21 22:34 C-Reactive Protein 13.40 mg/dL (0.00-1.30) H 10/30/21 Unknown Total Protein 6.3 g/dL (6.3-8.2) 11/06/21 02:35 Albumin 3.0 g/dL (3.9-5) L 11/06/21 02:35 Albumin/Globulin Ratio 0.9 % 11/06/21 02:35 Triglycerides 68 mg/dL (2-149) 10/29/21 19:40 Cholesterol 98 mg/dL (50-199) 10/29/21 19:40 LDL Cholesterol Direct 43 mg/dL (50-130) L 10/29/21 19:40 HDL Cholesterol 50 mg/dL (40-59) 10/29/21 19:40 Cholesterol/HDL Ratio 1.96 % 10/29/21 19:40 Procalcitonin 61.95 ng/mL (<0.15) 10/30/21 Unknown TSH 3.080 mlU/mL (0.270-4.200) 10/29/21 15:10 Urine Color Straw (Yellow) 10/29/21 18:15 Urine Turbidity Clear (Clear) 10/29/21 18:15 Urine pH 7.0 (5.0-7.0) 10/29/21 18:15 Ur Specific [place] 1.018 (1.003-1.030) 10/29/21 18:15 Urine Protein 100 mg/dl mg/dL (Negative) 10/29/21 18:15 Urine Glucose (UA) 150 mg/dL (Negative) 10/29/21 18:15 Urine Ketones Neg mg/dL (Negative) 10/29/21 18:15 Urine Blood Mod (Negative) 10/29/21 18:15 Urine Nitrite Neg (Negative) 10/29/21 18:15 Urine Bilirubin Neg (Negative) 10/29/21 18:15 Urine Urobilinogen < 2.0 mg/dL (<2.0) 10/29/21 18:15 Ur Leukocyte Esterase Neg (Negative) 10/29/21 18:15 Urine WBC (Auto) 5.0 /HPF (0.0-6.0) 10/29/21 18:15 Urine RBC (Auto) 2.0 /HPF (0.0-6.0) 10/29/21 18:15 U Epithel Cells (Auto) < 1.0 /HPF (0-13.0) 10/29/21 18:15 Urine Mucus Few /HPF 10/29/21 18:15 Urine Eosinophils None seen (None Seen) 11/04/21 Unknown Urine Creatinine 190.9 mg/dL (0.1-20.0) H 11/04/21 Unknown Protein/Creatinin Ratio 0.90 11/04/21 Unknown Urine Sodium 10 mmol/L 11/04/21 Unknown Urine Total Protein 172 mg/dL (5-11.8) H 11/04/21 Unknown Salicylates < 0.3 mg/dL (2.8-20.0) L 10/29/21 15:10 Urine Opiates Screen Negative 10/29/21 18:15 Urine Methadone Screen Negative 10/29/21 18:15 Acetaminophen 5.0 ug/mL (10.0-30.0) L 10/29/21 15:10 Ur Barbiturates Screen Negative 10/29/21 18:15 Ur Phencyclidine Scrn Negative 10/29/21 18:15 Ur Amphetamines Screen Negative 10/29/21 18:15 U Benzodiazepines Scrn Negative 10/29/21 18:15 Urine Cocaine Screen Negative 10/29/21 18:15 U Marijuana (THC) Screen Negative 10/29/21 18:15 Drugs of Abuse Note Disclamer 10/29/21 18:15 Plasma/Serum Alcohol < 0.01 % (0-0.07) 10/29/21 15:10 Coronavirus (PCR) Negative (Negative) 10/30/21 Unknown Blood Type O POSITIVE 10/29/21 15:10 Antibody Screen Negative 10/29/21 15:10 Gregory/IV: Voiding Method Indwelling Catheter Active Medications - Current Medications Current Medications: Generic Name Dose Route Start Last Admin Trade Name Freq PRN Reason Stop Dose Admin Acetaminophen 650 mg 10/29/21 17:04 11/03/21 11:35 Acetaminophen 325 Mg Tab PO 650 mg Q6H PRN Administration Pain, Mild (1-3) Acetaminophen 650 mg 10/29/21 17:04 Acetaminophen 650 Mg Rect Supp SD Q6H PRN Pain MILD(1-3)/Fever >100.5/NIEVES Lipase/Protease/Amylase 1 each 10/31/21 08:56 Lipase 10,500/Protease 25,000/Amylase 43,750 (Units) Dr Ivory FEEDTUBE PRN PRN For Clogged Feeding Tube Dextrose 0 ml 11/04/21 13:48 11/05/21 15:29 Dextrose 10% *Hypoglycemia IV 250 ml PRN PRN Administration Hypoglycemia Famotidine 10 mg 11/06/21 10:00 11/07/21 22:20 Famotidine 10 Mg Tab PO 10 mg BID RAMON Administration Fentanyl 50 mcg 11/04/21 14:32 11/06/21 08:36 Fentanyl 100 Mcg/2 Ml Inj IV 50 mcg Q2H PRN Administration Pain, Moderate (4-6) Heparin Sodium (Porcine) 4,300 unit 10/30/21 17:00 Heparin 10,000 Units/10 Ml Vial 40 unit/kg (4300 unit) IV Q6H PRN Anti-Xa Assay < 0.1 units/ml Hydrophilic Ointment 1 applic 10/29/21 14:29 Lip Therapy Vaseline TP Q2HR PRN Dry Lips Fentanyl Citrate 2,000 mcg in 100 mls @ 5.67 mls/hr 10/29/21 15:00 11/07/21 13:44 Fentanyl Drip Premix IV 4 mcg/kg/hr TITR RAMON 22.68 mls/hr Administration Protocol 1 MCG/KG/HR NORepinephrine/NS 8 MG-250 ML 8 mg in 250 mls @ 3.75 mls/hr 10/29/21 15:00 11/04/21 07:00 Norepinephrine/Ns 8 Mg-250 Ml (Double Conc) IV 0 mcg/min TITRATE RAMON 0 mls/hr Titration Protocol 2 MCG/MIN Heparin Sodium/Sodium Chloride 25,000 unit in 500 mls @ 30 mls/hr 10/30/21 17:00 11/07/21 16:00 Heparin/ 0.45% Nacl-25,000 Unit/500 Ml IV 1,400 units/hr TITR RAMON 28 mls/hr Titration Protocol 1,500 UNITS/HR Amiodarone HCl 900 mg/ 500 mls @ 33.333 mls/hr 11/03/21 11:00 11/07/21 18:09 Dextrose IV 0.5 mg/min DIRECT RAMON 16.667 mls/hr Administration Protocol 1 MG/MIN Dexmedetomidine HCl 200 mcg/ 50 mls @ 5.335 mls/hr 11/07/21 15:00 11/08/21 05:44 Sodium Chloride IV 0.4 mcg/kg/hr TITRATE RAMON 10.67 mls/hr Administration Protocol 0.2 MCG/KG/HR Potassium Chloride 20 meq in 100 mls @ 100 mls/hr 11/08/21 06:00 11/08/21 06:33 Kcl 20meq/100ml IV 11/08/21 07:59 100 mls/hr Q1H RAMON Administration Insulin Glargine 10 units 11/05/21 22:00 11/07/21 22:20 Insulin Glargine 100 Units/Ml SUB-Q 10 units QHS RAMON Administration Insulin Human Lispro 0 unit 10/30/21 16:00 11/08/21 06:16 Insulin Lispro 100 Unit/Ml SUB-Q 3 unit Q6HR RAMON Administration Protocol Metoprolol Tartrate 50 mg 11/07/21 12:00 11/08/21 06:17 Metoprolol Tartrate 50 Mg Tab FEEDTUBE 50 mg Q6H RAMON Administration Multi-Ingred Cream/Lotion/Oil/Oint 1 applic 10/29/21 14:29 11/06/21 09:25 Mineral Oil/Petrolatum, White Ophth Oint 3.5 Gm OU 1 applic Q4HR PRN Administration Dry Eye(s) Quetiapine Fumarate 100 mg 11/05/21 22:00 11/07/21 22:20 Quetiapine 100 Mg Tab PO 100 mg QHS RAMON Administration Quetiapine Fumarate 75 mg 11/06/21 10:00 11/07/21 09:02 Quetiapine 25 Mg Tab PO 50 mg QAM RAMON Administration Senna/Docusate Sodium 1 tab 10/29/21 15:00 11/07/21 22:20 Sennosides/Docusate Sodium 8.6/50 Mg Tab FEEDTUBE 1 tab BID RAMON Administration Simple Syrup 15 ml 10/31/21 08:56 Simple Syrup 15 Ml FEEDTUBE PRN PRN Hypoglycemia Simple Syrup 30 ml 10/31/21 08:56 Simple Syrup 15 Ml FEEDTUBE PRN PRN Hypoglycemia Sodium Bicarbonate 325 mg 10/31/21 08:56 Sodium Bicarbonate 325 Mg Tab FEEDTUBE PRN PRN For Clogged Feeding Tube Sodium Chloride 10 ml 10/29/21 22:00 11/07/21 22:31 Sodium Chloride 0.9% 10 Ml Flush Syringe IV 10 ml BID RAMON Administration Sodium Chloride 10 ml 10/29/21 17:04 Sodium Chloride 0.9% 10 Ml Flush Syringe IV PRN PRN LINE FLUSH Nutrition/Malnutrition Assess - Dietary Evaluation Nutrition/Malnutrition Findings: Nutrition Notes Start: 10/30/21 09:50 Freq: Status: Active Protocol: Document 11/06/21 11:11 YOVANY (Rec: 11/06/21 11:21 YOVANY [id number]) Nutrition Notes Initial or Follow up Reassessment Current Diagnosis Sepsis,Heart Failure, Respiratory Failure Other Pertinent Diagnosis s/p cardiac arrest, ARF sec to ischemic acute tubular necrosis Current Diet TF - Vital HP at 60ml/hr Labs/Tests K 5.2 BUN 85 Cr 2.3 BG 236 Mg 2.8 Pertinent Medications Cardizem gtt Height 5 ft 10 in Weight 106.7 kg [place] Body Weight (kg) 68.18 BMI 33.7 Weight Status Obese Subjective/Other Information Phone call received for RN; pt with ARF and hyperkalemia. Request to change TF formula to Nepro. Pt remains on vent support. Per nephrology, no indication for renal replacement therapy at this time. Burn Absent Trauma Absent #1 Nutrition Diagnosis Inadequate oral intake Diagnosis Progress(for reassessment Continues documentation) Is patient on ventilator? Yes Is Patient Ambulatory and/or Out of Bed No REE-([facility]-confined to bed) 2022.848 Kcal/Kg value to use for calculation 15 Approximate Energy Requirements Using 1601 kcal/Kg Calculation Used for Recommendations Kcal/kg Additional Notes Pro needs 0.8-1.2g/kg adjBW: 70-105g/day Fluids: 1 ml/kcal Nutrition Intervention Nutrition Support: Change TF formula to Nepro at 37ml/hr with 160ml water flush q4h. Kcal 1,598 Protein (gm) 72 Carbohydrates (gm) 143 Fat (gm) 85 Fluid (mL) 646 Fiber (gm) 11 Goal #1 TF tolerance Goal #2 TF to meet 65-70% energy and at least 75% pro needs Follow-Up By: 11/08/21 Additional Comments F/U: TF formula change/ tolerance, renal function, vent status
[2021-10-31] MEDS: SODIUM CHLORIDE 0.9% 1000 ML 1,000 ML IV SCH (16:35)
[2021-10-31 16:36] LABS: ABG Base Excess -6.3 mmol/L (-2.0-3.0); ABG HCO3 21.6 mmol/L (20.0-26.0); ABG Methemoglobin 0.6 % (0.0-1.5); ABG Oxygen Saturation 86.2 % (95.0-99.0); ABG PCO2 53.7 mm Hg; ABG PH 7.222 pH Units (7.350-7.450); ABG PO2 61.5 mm Hg (80.0-90.0)
[2021-10-31 17:50] LABS: Creatinine,Urine 383.6 mg/dL (0.1-20.0)
[2021-10-31 18:11] LABS: ABG Base Excess -5.9 mmol/L (-2.0-3.0); ABG HCO3 20.9 mmol/L (20.0-26.0); ABG Methemoglobin 0.5 % (0.0-1.5); ABG Oxygen Saturation 88.3 % (95.0-99.0); ABG PCO2 46.8 mm Hg; ABG PH 7.267 pH Units (7.350-7.450); ABG PO2 58.3 mm Hg (80.0-90.0)
[2021-10-31] MEDS: AZITHROMYCIN/NS 500 MG/250 ML 500 MG/250 ML BAG IV SCH (18:31)
[2021-10-31] MEDS: cefTRIAXone/NS 2 GM/100 ML 2 GM/100 ML BAG IV SCH (18:32)
[2021-11-01] MEDS: INSULIN LISPRO 100 UNIT/ML SUB-Q SCH ×3 (00:32→12:45)
[2021-11-01] MEDS: fentaNYL DRIP Premix 2,000 MCG/100 ML BAG IV SCH ×5 (01:00→20:23)
[2021-11-01] MEDS: HEPARIN/ 0.45% NACL DRIP 25,000 UNIT/500 ML BAG IV SCH ×2 (04:13→20:24)
--- NOTE | 2021-11-01 04:44 | XRay Report ---
CHEST 1 VIEW INDICATION / CLINICAL INFORMATION: follow up respiratory failure. COMPARISON: Chest x-ray 10/31/2021 FINDINGS: SUPPORT DEVICES: Tubes and lines are stable. HEART / MEDIASTINUM: No significant abnormality. LUNGS / PLEURA: Low lung volumes with persistent bibasilar opacities more prevalent on the left. Ad le interval change. No pneumothorax. ADDITIONAL FINDINGS: No significant additional findings. IMPRESSION: 1. No adverse interval change. Stable tubes and lines. Signer Name: Martínez Rosenbegr II, MD Signed: 11/01/2021 4:39 AM Workstation Name: [id number]
[2021-11-01] MEDS: SODIUM CHLORIDE 0.9% 1000 ML 1,000 ML IV SCH (06:00)
[2021-11-01 06:09] LABS: Hematocrit 28.7 % (30.3-42.9); Hemoglobin 8.9 gm/dl (10.1-14.3); Mean Corpuscular HGB Conc 31 % (30-34); Mean Corpuscular Volume 84 fl (79-97); Platelet Count 130 K/mm3 (140-440); Red Blood Count 3.43 M/mm3 (3.65-5.03); Red Cell Distribution Width 15.7 % (13.2-15.2)
[2021-11-01 06:26] LABS: Albumin 2.7 g/dL (3.9-5); Calcium 7.7 mg/dL (8.4-10.2)
--- NOTE | 2021-11-01 09:04 | Electrocardiograph Report ---
[facility] Test Date: 2021-11-01 Test Time: 07:42:13 Pat Name: DUNG TOBIN Department: Room: A253 1 Gender: F Rn Relief Charge: ELISSA : 1955 Requested By: SHANTE GALVEZ Order Number: [id number] Reading MD: Gerardo Cueto Measurements Intervals [place] Rate: 91 P: 48 [place]: 161 QRS: -3 QRSD: 88 T: 10 QT: 354 QTc: 443 Interpretive Statements Sinus rhythm Multiform ventricular premature complexes Compared to ECG 10/29/2021 14:40:19 Sinus tachycardia no longer present Left ventricular hypertrophy no longer present Early repolarization no longer present Myocardial infarct finding no longer present Electronically Signed On 11-01-2021 9:04:45 EST by Gerardo Cueto
[2021-11-01] MEDS: SENNOSIDES/DOCUSATE SODIUM 8.6/50 MG TAB FEEDTUBE SCH ×2 (09:29→21:34)
[2021-11-01] MEDS: FAMOTIDINE 20 MG TAB FEEDTUBE SCH ×2 (09:29→21:33)
[2021-11-01] MEDS: fentaNYL 100 MCG/2 ML INJ IV PRN (09:29)
[2021-11-01] MEDS ORDERED: LORazepam 2 MG/ML VIAL IV ONE (10:45)
--- NOTE | 2021-11-01 12:14 | Progress Note ---
<LEONORSHANTE JaredUmair - Last Filed: 11/01/21 12:38> Assessment and Plan Assessment and plan: This is a 66-year-old female with past medical history of HTN and Obesity admitted for septic shock, s/p cardiac arrest with ROSC in the field now intubated and on ventilatory support Neuro: Acute Metabolic encephalopathy -Avoid delirium -Reorientation as needed -Sedated with fentanyl -RASS goal 0 to -1 -As needed analgesia -Maintain sleep-wake cycle -CT head no acute focal parenchymal lesion in the brain Cardiac: S/p cardiac arrest, ? Cardiogenic shock -Outside hospital cardiac arrest with ROSC -Cardiology consulted, appreciate recommendations -s/p vasopressor support with levophed -Echocardiogram shows left ventricular systolic function severely decreased, LVEF 25 to 30%, no pericardial effusion -proBNP 5622 Respiratory: Acute hypoxic/hypercapnic respiratory failure, right pneumothorax -CCM consulted, appreciate recommendations -A.m. vent settings: Assist-control rate 22, tidal volume 500, PEEP 8, FiO2 50% -See RT notes for titration -AM CXR noted -ABG pending -VAP bundle -SPO2 monitoring -Right chest tube to wall suction -Past 24 hours drainage: 42 mL GI: Protein calorie malnutrion, transaminitis likely shocked liver -24 hours +552 mL -PPI -NTR consulted for tube feedings -Trend LFTs : Acute kidney injury likely secondary to vasomotor nephropathy -Cr increased to 1.7 -Strict intake and output -Renally dose medications -Avoid nephrotoxic medications -Daily weights -FWF -replete potassium -Trend BMP -FeNa 0.05 indicated pre-renal -Consider nephrology consult and renal ultrasound if worsen -MIVF for 2 L per [facility] ID: Septic shock secondary to aspiration pneumonia, lactic acidosis (resolved) -COVID-19 PCR negative -Antibiotic therapy with Rocephin and azithromycin () -Follow-up culture data -Monitor WBC and temperature curve -Repeat LA Endo: Hyperglycemia -Avoid hypoglycemia -Hbg A1C 6.7 -SSI -Accu-Cheks q. 6 Heme: Acute DVT in the left posterior tibial vein and bilateral peroneal veins, Leukocytosis -D-dimer greater than 10,000 -CTA chest with no evidence of PE -Bilateral lower extremity ultrasound positive for DVT -Heparin gtt -Trend CBC -SCDs to BLE while in bed -Transfuse hemoglobin less than 7 -Monitor for signs of bleeding The high probability of a clinically significant, sudden or life threatening deterioration of the [multi] system(s) required my full and direct attention, intervention and personal management. The aggregate critical care time was [60] minutes. This time is in addition to time spent performing reported procedures but includes the following: [x] Data Review and interpretation [x] Patient assessment and monitoring of vital signs [x] Documentation [x] Medication orders and management Disposition Plan: icu Total Time Spent with Patient (Minutes): 60 History Interval history: This is a 66-year-old female with HTN and obesity who presented to the hospital on 10/29 via EMS with s/p cardiac arrest with CPR initiated by bystanders and upon EMS arrival a David airway was placed and ACLS was initiated. Patient had ROSC after 5-7 minutes and was started on epinephrine in route for hemodynamic support. Upon arrival to the emergency department patient GCS was noted to be 3 and she was biting the endotracheal tube with dilated pupils and copious vomitus and gastric secretions in the oropharynx/mouth/neck. David airway was removed and patient was intubated in the emergency department. Patient was admitted to the hospitalist service s/p cardiac arrest on sepsis and pneumonia protocol with consults to [facility]. Cardiology was consulted upon arrival to ICU. Hospital Course to Date: 10/30: Intubated and sedated, on fentanyl gtt. Open eyes spontaneously but does not follow any commands. On vasopressors, titrate as tolerated for MAP above 65. Patient febrile overnight, continue empiric IV Abx, culture data and COVID PCR pending. Patient is also s/p CT placement due to spontaneous pneumothorax. 2D echo is pending and Cardiology is consulted. 10/31: Patient remains intubated and following commands. Levophed drip stopped and potassium repleted. Patient started on tube feeding. Remains in soft bilateral restraints. 11/01: RN noted ST changes on BSM and 12 lead EKG obtained which showed ST. Given Ativan 1mg for agitation as she is maxed on fentanyl drip and IV push fentanyl did not seem to help. Patient was started on CPAP this morning by RT but remained on fentanyl drip and was having periods of apnea. Plan was to retry CPAP again in the p.m. with sedation off. Hospitalist Physical - Constitutional Vitals: Temp Pulse Resp BP Pulse Ox 99.9 F H 107 H 20 91/47 94 11/01/21 08:00 11/01/21 11:01 11/01/21 11:01 11/01/21 11:18 11/01/21 11:01 General appearance: Present: no acute distress, obese, other (Intubated and S edated) - EENT Eyes: Present: PERRL, EOM intact ENT: clear oral mucosa - Neck Neck: Present: normal ROM - Respiratory Respiratory effort: normal Respiratory: bilateral: CTA, diminished - Cardiovascular Rhythm: regular Heart Sounds: Present: S1 & S2. Absent: systolic murmur, diastolic murmur - Extremities Extremities: no ischemia, pulses intact, pulses symmetrical, No edema, normal temperature, normal color Peripheral Pulses: within normal limits - Abdominal General gastrointestinal: soft, non-tender, non-distended, normal bowel sounds - Integumentary Integumentary: Present: warm, dry - Psychiatric Psychiatric: cooperative - Neurologic Neurologic: CNII-XII intact, no focal deficits - Allied Health Allied health notes reviewed: nursing, RT, social work HEART Score - HEART Score Troponin: Troponin T 1.150 ng/mL (0.00-0.029) H* D 10/29/21 22:34 Results - Labs CBC & Chem 7: 11/01/21 06:00 11/01/21 06:00 Labs: Laboratory Last Values WBC 12.6 K/mm3 (4.5-11.0) H 11/01/21 06:00 RBC 3.43 M/mm3 (3.65-5.03) L 11/01/21 06:00 Hgb 8.9 gm/dl (10.1-14.3) L 11/01/21 06:00 Hct 28.7 % (30.3-42.9) L 11/01/21 06:00 MCV 84 fl (79-97) 11/01/21 06:00 MCH 26 pg (28-32) L 11/01/21 06:00 MCHC 31 % (30-34) 11/01/21 06:00 RDW 15.7 % (13.2-15.2) H 11/01/21 06:00 Plt Count 130 K/mm3 (140-440) L 11/01/21 06:00 Lymph % (Auto) 6.2 % (13.4-35.0) L 10/30/21 04:30 [place] % (Auto) 5.5 % (0.0-7.3) 10/30/21 04:30 Eos % (Auto) 0.1 % (0.0-4.3) 10/30/21 04:30 Baso % (Auto) 0.1 % (0.0-1.8) 10/30/21 04:30 Lymph # (Auto) 1.0 K/mm3 (1.2-5.4) L 10/30/21 04:30 [place] # (Auto) 0.9 K/mm3 (0.0-0.8) H 10/30/21 04:30 Eos # (Auto) 0.0 K/mm3 (0.0-0.4) 10/30/21 04:30 Baso # (Auto) 0.0 K/mm3 (0.0-0.1) 10/30/21 04:30 Add Manual Diff Complete 10/29/21 15:10 Total Counted 100 10/29/21 15:10 Seg Neutrophils % 88.1 % (40.0-70.0) H 10/30/21 04:30 Seg Neuts % (Manual) 78.0 % (40.0-70.0) H 10/29/21 15:10 Band Neutrophils % 5.0 % 10/29/21 15:10 Lymphocytes % (Manual) 10.0 % (13.4-35.0) L 10/29/21 15:10 Reactive Lymphs % (Man) 0 % 10/29/21 15:10 Monocytes % (Manual) 5.0 % (0.0-7.3) 10/29/21 15:10 Eosinophils % (Manual) 0 % (0.0-4.3) 10/29/21 15:10 Basophils % (Manual) 0 % (0.0-1.8) 10/29/21 15:10 Metamyelocytes % 2.0 % 10/29/21 15:10 Myelocytes % 0 % 10/29/21 15:10 Promyelocytes % 0 % 10/29/21 15:10 Blast Cells % 0 % 10/29/21 15:10 Nucleated RBC % Not Reportable 10/29/21 15:10 Seg Neutrophils # 14.2 K/mm3 (1.8-7.7) H 10/30/21 04:30 Seg Neutrophils # Man 21.7 K/mm3 (1.8-7.7) H 10/29/21 15:10 Band Neutrophils # 1.4 K/mm3 10/29/21 15:10 Lymphocytes # (Manual) 2.8 K/mm3 (1.2-5.4) 10/29/21 15:10 Abs React Lymphs (Man) 0.0 K/mm3 10/29/21 15:10 Monocytes # (Manual) 1.4 K/mm3 (0.0-0.8) H 10/29/21 15:10 Eosinophils # (Manual) 0.0 K/mm3 (0.0-0.4) 10/29/21 15:10 Basophils # (Manual) 0.0 K/mm3 (0.0-0.1) 10/29/21 15:10 Metamyelocytes # 0.6 K/mm3 10/29/21 15:10 Myelocytes # 0.0 K/mm3 10/29/21 15:10 Promyelocytes # 0.0 K/mm3 10/29/21 15:10 Blast Cells # 0.0 K/mm3 10/29/21 15:10 WBC Morphology Not Reportable 10/29/21 15:10 Hypersegmented Neuts Not Reportable 10/29/21 15:10 Hyposegmented Neuts Not Reportable 10/29/21 15:10 Hypogranular Neuts Not Reportable 10/29/21 15:10 Smudge Cells Not Reportable 10/29/21 15:10 Toxic Granulation Not Reportable 10/29/21 15:10 Toxic Vacuolation Not Reportable 10/29/21 15:10 Dohle Bodies Not Reportable 10/29/21 15:10 Pelger-Huet Anomaly Not Reportable 10/29/21 15:10 Manny Rods Not Reportable 10/29/21 15:10 Platelet Estimate Consistent w auto 10/29/21 15:10 Clumped Platelets Not Reportable 10/29/21 15:10 Plt Clumps, EDTA Not Reportable 10/29/21 15:10 Large Platelets Not Reportable 10/29/21 15:10 Giant Platelets Not Reportable 10/29/21 15:10 Platelet Satelliting Not Reportable 10/29/21 15:10 Plt Morphology Comment Not Reportable 10/29/21 15:10 RBC Morphology Not Reportable 10/29/21 15:10 Dimorphic RBCs Not Reportable 10/29/21 15:10 Polychromasia Not Reportable 10/29/21 15:10 Hypochromasia Not Reportable 10/29/21 15:10 Poikilocytosis 1+ 10/29/21 15:10 Anisocytosis Not Reportable 10/29/21 15:10 Microcytosis 1+ 10/29/21 15:10 Macrocytosis Not Reportable 10/29/21 15:10 Spherocytes Not Reportable 10/29/21 15:10 Pappenheimer Bodies Not Reportable 10/29/21 15:10 Sickle Cells Not Reportable 10/29/21 15:10 Target Cells Not Reportable 10/29/21 15:10 Tear Drop Cells Not Reportable 10/29/21 15:10 Ovalocytes Few 10/29/21 15:10 Helmet Cells Not Reportable 10/29/21 15:10 [place] Bodies Not Reportable 10/29/21 15:10 [place] Rings Not Reportable 10/29/21 15:10 [place] Cells Not Reportable 10/29/21 15:10 Bite Cells Not Reportable 10/29/21 15:10 Crenated Cell Not Reportable 10/29/21 15:10 Elliptocytes Few 10/29/21 15:10 Acanthocytes (Spur) Not Reportable 10/29/21 15:10 Rouleaux Not Reportable 10/29/21 15:10 Hemoglobin C Crystals Not Reportable 10/29/21 15:10 Schistocytes Not Reportable 10/29/21 15:10 Malaria parasites Not Reportable 10/29/21 15:10 [place]dy Bodies Not Reportable 10/29/21 15:10 Hem Pathologist Commnt No 10/29/21 15:10 PT 17.2 Sec. (12.2-14.9) H 10/30/21 16:30 INR 1.27 (0.87-1.13) H 10/30/21 16:30 APTT 44.4 Sec. (24.2-36.6) H 10/30/21 16:30 D-Dimer > 01155 ng/mlDDU (0-234) H 10/30/21 Unknown Heparin Anti-Xa Level 0.35 U.I./ml (0.3-0.7) 11/01/21 06:00 ABG pH 7.267 pH Units (7.350-7.450) L 10/31/21 17:45 ABG pCO2 46.8 mm Hg 10/31/21 17:45 ABG pO2 58.3 mm Hg (80.0-90.0) L 10/31/21 17:45 ABG HCO3 20.9 mmol/L (20.0-26.0) 10/31/21 17:45 ABG O2 Saturation 88.3 % (95.0-99.0) L 10/31/21 17:45 ABG O2 Content 12.3 (0.0-44) 10/31/21 17:45 ABG Base Excess -5.9 mmol/L (-2.0-3.0) L 10/31/21 17:45 ABG Hemoglobin 10.1 gm/dl (12.0-16.0) L 10/31/21 17:45 ABG Carboxyhemoglobin 1.6 % (0.0-5.0) 10/31/21 17:45 ABG Methemoglobin 0.5 % (0.0-1.5) 10/31/21 17:45 Oxyhemoglobin 86.5 % (95.0-99.0) L 10/31/21 17:45 FiO2 40 % 10/31/21 17:45 Sodium 144 mmol/L (137-145) 11/01/21 06:00 Potassium 4.3 mmol/L (3.6-5.0) D 11/01/21 06:00 Chloride 114.1 mmol/L (98-107) H 11/01/21 06:00 Carbon Dioxide 20 mmol/L (22-30) L 11/01/21 06:00 Anion Gap 14 mmol/L 11/01/21 06:00 BUN 33 mg/dL (7-17) H 11/01/21 06:00 Creatinine 1.2 mg/dL (0.6-1.2) 11/01/21 06:00 Estimated GFR 54 ml/min 11/01/21 06:00 BUN/Creatinine Ratio 28 % 11/01/21 06:00 Glucose 131 mg/dL (65-100) H 11/01/21 06:00 POC Glucose 151 mg/dL (70-105) H 11/01/21 11:43 Hemoglobin A1c 6.7 % (4-6) H 10/31/21 04:30 Lactic Acid 0.70 mmol/L (0.7-2.0) 10/31/21 15:45 Calcium 7.7 mg/dL (8.4-10.2) L 11/01/21 06:00 Phosphorus 3.10 mg/dL (2.5-4.5) 10/31/21 04:30 Magnesium 1.90 mg/dL (1.7-2.3) 11/01/21 06:00 Ferritin 208.4 ng/mL (10.0-200.0) H 10/30/21 Unknown Total Bilirubin 0.30 mg/dL (0.1-1.2) 11/01/21 06:00 AST 79 units/L (5-40) H 11/01/21 06:00 ALT 259 units/L (7-56) H 11/01/21 06:00 Alkaline Phosphatase 113 units/L (35-129) 11/01/21 06:00 Ammonia 31.0 umol/L (25-60) 10/29/21 15:10 Lactate Dehydrogenase 469 units/L (91-180) H 10/30/21 Unknown Troponin T 1.150 ng/mL (0.00-0.029) H* D 10/29/21 22:34 C-Reactive Protein 13.40 mg/dL (0.00-1.30) H 10/30/21 Unknown Total Protein 5.5 g/dL (6.3-8.2) L 11/01/21 06:00 Albumin 2.7 g/dL (3.9-5) L 11/01/21 06:00 Albumin/Globulin Ratio 1.0 % 11/01/21 06:00 Triglycerides 68 mg/dL (2-149) 10/29/21 19:40 Cholesterol 98 mg/dL (50-199) 10/29/21 19:40 LDL Cholesterol Direct 43 mg/dL (50-130) L 10/29/21 19:40 HDL Cholesterol 50 mg/dL (40-59) 10/29/21 19:40 Cholesterol/HDL Ratio 1.96 % 10/29/21 19:40 Procalcitonin 61.95 ng/mL (<0.15) 10/30/21 Unknown TSH 3.080 mlU/mL (0.270-4.200) 10/29/21 15:10 Urine Color Straw (Yellow) 10/29/21 18:15 Urine Turbidity Clear (Clear) 10/29/21 18:15 Urine pH 7.0 (5.0-7.0) 10/29/21 18:15 Ur Specific [place] 1.018 (1.003-1.030) 10/29/21 18:15 Urine Protein 100 mg/dl mg/dL (Negative) 10/29/21 18:15 Urine Glucose (UA) 150 mg/dL (Negative) 10/29/21 18:15 Urine Ketones Neg mg/dL (Negative) 10/29/21 18:15 Urine Blood Mod (Negative) 10/29/21 18:15 Urine Nitrite Neg (Negative) 10/29/21 18:15 Urine Bilirubin Neg (Negative) 10/29/21 18:15 Urine Urobilinogen < 2.0 mg/dL (<2.0) 10/29/21 18:15 Ur Leukocyte Esterase Neg (Negative) 10/29/21 18:15 Urine WBC (Auto) 5.0 /HPF (0.0-6.0) 10/29/21 18:15 Urine RBC (Auto) 2.0 /HPF (0.0-6.0) 10/29/21 18:15 U Epithel Cells (Auto) < 1.0 /HPF (0-13.0) 10/29/21 18:15 Urine Mucus Few /HPF 10/29/21 18:15 Urine Creatinine 383.6 mg/dL (0.1-20.0) H 10/31/21 16:35 Urine Sodium 16 mmol/L 10/31/21 16:35 Salicylates < 0.3 mg/dL (2.8-20.0) L 10/29/21 15:10 Urine Opiates Screen Negative 10/29/21 18:15 Urine Methadone Screen Negative 10/29/21 18:15 Acetaminophen 5.0 ug/mL (10.0-30.0) L 10/29/21 15:10 Ur Barbiturates Screen Negative 10/29/21 18:15 Ur Phencyclidine Scrn Negative 10/29/21 18:15 Ur Amphetamines Screen Negative 10/29/21 18:15 U Benzodiazepines Scrn Negative 10/29/21 18:15 Urine Cocaine Screen Negative 10/29/21 18:15 U Marijuana (THC) Screen Negative 10/29/21 18:15 Drugs of Abuse Note Disclamer 10/29/21 18:15 Plasma/Serum Alcohol < 0.01 % (0-0.07) 10/29/21 15:10 Coronavirus (PCR) Negative (Negative) 10/30/21 Unknown Blood Type O POSITIVE 10/29/21 15:10 Antibody Screen Negative 10/29/21 15:10 Microbiology: Microbiology 10/29/21 18:15 Urine,Clean Catch Urine Culture - Final NO GROWTH AFTER 48 HOURS 10/29/21 Unknown Peripheral/Venous Blood Culture - Preliminary NO GROWTH AFTER 48 HOURS 10/29/21 Unknown Peripheral/Venous Blood Culture - Preliminary NO GROWTH AFTER 48 HOURS 10/29/21 16:15 Sputum - Expectorated Sputum Sputum Culture - Final Gregory/IV: Voiding Method Indwelling Catheter Active Medications - Current Medications Current Medications: Generic Name Dose Route Start Last Admin Trade Name Freq PRN Reason Stop Dose Admin Acetaminophen 650 mg 10/29/21 17:04 10/31/21 05:08 Acetaminophen 325 Mg Tab PO 650 mg Q6H PRN Administration Pain, Mild (1-3) Acetaminophen 650 mg 10/29/21 17:04 Acetaminophen 650 Mg Rect Supp AK Q6H PRN Pain MILD(1-3)/Fever >100.5/NIEVES Lipase/Protease/Amylase 1 each 10/31/21 08:56 Lipase 10,500/Protease 25,000/Amylase 43,750 (Units) Dr Ivory FEEDTUBE PRN PRN For Clogged Feeding Tube Dextrose 50 ml 10/30/21 15:21 Dextrose 50% In Water (25gm) 50 Ml Syringe IV Q30MIN PRN Hypoglycemia Protocol Famotidine 20 mg 11/01/21 10:00 11/01/21 09:29 Famotidine 20 Mg Tab FEEDTUBE 20 mg BID RAMON Administration Fentanyl 50 mcg 10/29/21 14:29 11/01/21 09:29 Fentanyl 100 Mcg/2 Ml Inj IV 50 mcg Q10MIN PRN Administration ANALGESIA Heparin Sodium (Porcine) 4,300 unit 10/30/21 17:00 Heparin 10,000 Units/10 Ml Vial 40 unit/kg (4300 unit) IV Q6H PRN Anti-Xa Assay < 0.1 units/ml Hydrophilic Ointment 1 applic 10/29/21 14:29 Lip Therapy Vaseline TP Q2HR PRN Dry Lips Fentanyl Citrate 2,000 mcg in 100 mls @ 5.67 mls/hr 10/29/21 15:00 11/01/21 10:48 Fentanyl Drip Premix IV 4 mcg/kg/hr TITR RAMON 22.68 mls/hr Administration Protocol 1 MCG/KG/HR NORepinephrine/NS 8 MG-250 ML 8 mg in 250 mls @ 3.75 mls/hr 10/29/21 15:00 08:35 Norepinephrine/Ns 8 Mg-250 Ml (Double Conc) IV 0 mcg/min TITRATE RAMON 0 mls/hr Titration Protocol 2 MCG/MIN Ceftriaxone Sodium 2 gm in 100 mls @ 200 mls/hr 10/29/21 18:00 10/31/21 18:32 Rocephin/Ns 2 Gm/100 Ml IV 11/02/21 18:29 200 mls/hr Q24H RAMON Administration Protocol Azithromycin 500 mg in 250 mls @ 250 mls/hr 10/29/21 18:00 10/31/21 18:31 Zithromax/Ns IV 11/02/21 18:59 250 mls/hr Q24H RAMON Administration Protocol Heparin Sodium/Sodium Chloride 25,000 unit in 500 mls @ 30 mls/hr 10/30/21 17:00 11/01/21 06:42 Heparin/ 0.45% Nacl-25,000 Unit/500 Ml IV 1,400 units/hr TITR RAMON 28 mls/hr Titration Protocol 1,500 UNITS/HR Sodium Chloride 1,000 mls @ 75 mls/hr 10/31/21 15:45 11/01/21 06:00 Nacl 0.9% 1000 Ml IV 11/02/21 05:04 75 mls/hr DIRECT RAMON Administration Insulin Human Lispro 0 unit 10/30/21 16:00 11/01/21 06:17 Insulin Lispro 100 Unit/Ml SUB-Q Not Given Q6HR RAMON Protocol Multi-Ingred Cream/Lotion/Oil/Oint 1 applic 10/29/21 14:29 Mineral Oil/Petrolatum, White Ophth Oint 3.5 Gm OU Q4HR PRN Dry Eye(s) Senna/Docusate Sodium 1 tab 10/29/21 15:00 11/01/21 09:29 Sennosides/Docusate Sodium 8.6/50 Mg Tab FEEDTUBE 1 tab BID RAMON Administration Simple Syrup 15 ml 10/31/21 08:56 Simple Syrup 15 Ml FEEDTUBE PRN PRN Hypoglycemia Simple Syrup 30 ml 10/31/21 08:56 Simple Syrup 15 Ml FEEDTUBE PRN PRN Hypoglycemia Sodium Bicarbonate 325 mg 10/31/21 08:56 Sodium Bicarbonate 325 Mg Tab FEEDTUBE PRN PRN For Clogged Feeding Tube Sodium Chloride 10 ml 10/29/21 22:00 11/01/21 09:29 Sodium Chloride 0.9% 10 Ml Flush Syringe IV 10 ml BID RAMON Administration Sodium Chloride 10 ml 10/29/21 17:04 Sodium Chloride 0.9% 10 Ml Flush Syringe IV PRN PRN LINE FLUSH Nutrition/Malnutrition Assess - Dietary Evaluation Nutrition/Malnutrition Findings: Nutrition Notes Start: 10/30/21 09:50 Freq: Status: Active Protocol: Document 10/31/21 11:57 [facility] (Rec: 10/31/21 12:08 COUNT INCLUDES THE [facility] [id number]) Nutrition Notes Need for Assessment generated from: MD Order Initial or Follow up Reassessment Current Diagnosis Hypertension,Respiratory Failure Other Pertinent Diagnosis Septic shock, s/p cardiac arrest, pneumothorax, r/o COVID-19 Current Diet NPO Labs/Tests K 3.5 BUN 28 Cr 1.7 A1C 6.7 Pertinent Medications Heparin gtt, 40mEq KCl x 1 dose Height 5 ft 10 in Weight 106.7 kg [place] Body Weight (kg) 68.18 BMI 33.7 Weight Status Obese Subjective/Other Information RD consulted for TF. Pt remains on vent support. Burn Absent Trauma Absent Minimum of two criteria No #1 Nutrition Diagnosis Inadequate oral intake Diagnosis Progress(for reassessment Continues documentation) Is patient on ventilator? Yes Is Patient Ambulatory and/or Out of Bed No REE-([facility]-confined to bed) 2022.848 Kcal/Kg value to use for calculation 15 Approximate Energy Requirements Using 1601 kcal/Kg Calculation Used for Recommendations Kcal/kg Additional Notes Pro needs 2g/kg IBW: 136g/day Fluid needs 1ml/kcal Nutrition Intervention Nutrition Support: Vital HP at 60ml/hr. Provide 50ml water flush q4h. Kcal 1,440 Protein (gm) 126 Carbohydrates (gm) 161 Fat (gm) 33 Fluid (mL) 1,204 Goal #1 TF tolerance Goal #2 TF to meet 65-70% energy and at least 75% pro needs Follow-Up By: 11/02/21 Additional Comments F/U: new TF, vent status <OLIVIA MONREAL - Last Filed: 11/03/21 13:39> Assessment and Plan Assessment and plan: I saw and evaluated the patient. Discussed with the nurse practitioner and agree with their findings and plan as documented in this note. Hospitalist Physical - Constitutional Vitals: Temp Pulse Resp BP Pulse Ox 101 F H 146 H 14 76/58 94 11/03/21 12:00 11/03/21 12:00 11/03/21 11:00 11/03/21 12:00 11/03/21 12:00 HEART Score - HEART Score Troponin: Troponin T 1.150 ng/mL (0.00-0.029) H* D 10/29/21 22:34 Results - Labs CBC & Chem 7: 11/03/21 06:00 11/03/21 06:00 Labs: Laboratory Last Values WBC 9.5 K/mm3 (4.5-11.0) 11/03/21 06:00 RBC 3.43 M/mm3 (3.65-5.03) L 11/03/21 06:00 Hgb 9.1 gm/dl (10.1-14.3) L 11/03/21 06:00 Hct 29.0 % (30.3-42.9) L 11/03/21 06:00 MCV 85 fl (79-97) 11/03/21 06:00 MCH 26 pg (28-32) L 11/03/21 06:00 MCHC 31 % (30-34) 11/03/21 06:00 RDW 16.4 % (13.2-15.2) H 11/03/21 06:00 Plt Count 181 K/mm3 (140-440) 11/03/21 06:00 Lymph % (Auto) 6.2 % (13.4-35.0) L 10/30/21 04:30 [place] % (Auto) 5.5 % (0.0-7.3) 10/30/21 04:30 Eos % (Auto) 0.1 % (0.0-4.3) 10/30/21 04:30 Baso % (Auto) 0.1 % (0.0-1.8) 10/30/21 04:30 Lymph # (Auto) 1.0 K/mm3 (1.2-5.4) L 10/30/21 04:30 [place] # (Auto) 0.9 K/mm3 (0.0-0.8) H 10/30/21 04:30 Eos # (Auto) 0.0 K/mm3 (0.0-0.4) 10/30/21 04:30 Baso # (Auto) 0.0 K/mm3 (0.0-0.1) 10/30/21 04:30 Add Manual Diff Complete 10/29/21 15:10 Total Counted 100 10/29/21 15:10 Seg Neutrophils % 88.1 % (40.0-70.0) H 10/30/21 04:30 Seg Neuts % (Manual) 78.0 % (40.0-70.0) H 10/29/21 15:10 Band Neutrophils % 5.0 % 10/29/21 15:10 Lymphocytes % (Manual) 10.0 % (13.4-35.0) L 10/29/21 15:10 Reactive Lymphs % (Man) 0 % 10/29/21 15:10 Monocytes % (Manual) 5.0 % (0.0-7.3) 10/29/21 15:10 Eosinophils % (Manual) 0 % (0.0-4.3) 10/29/21 15:10 Basophils % (Manual) 0 % (0.0-1.8) 10/29/21 15:10 Metamyelocytes % 2.0 % 10/29/21 15:10 Myelocytes % 0 % 10/29/21 15:10 Promyelocytes % 0 % 10/29/21 15:10 Blast Cells % 0 % 10/29/21 15:10 Nucleated RBC % Not Reportable 10/29/21 15:10 Seg Neutrophils # 14.2 K/mm3 (1.8-7.7) H 10/30/21 04:30 Seg Neutrophils # Man 21.7 K/mm3 (1.8-7.7) H 10/29/21 15:10 Band Neutrophils # 1.4 K/mm3 10/29/21 15:10 Lymphocytes # (Manual) 2.8 K/mm3 (1.2-5.4) 10/29/21 15:10 Abs React Lymphs (Man) 0.0 K/mm3 10/29/21 15:10 Monocytes # (Manual) 1.4 K/mm3 (0.0-0.8) H 10/29/21 15:10 Eosinophils # (Manual) 0.0 K/mm3 (0.0-0.4) 10/29/21 15:10 Basophils # (Manual) 0.0 K/mm3 (0.0-0.1) 10/29/21 15:10 Metamyelocytes # 0.6 K/mm3 10/29/21 15:10 Myelocytes # 0.0 K/mm3 10/29/21 15:10 Promyelocytes # 0.0 K/mm3 10/29/21 15:10 Blast Cells # 0.0 K/mm3 10/29/21 15:10 WBC Morphology Not Reportable 10/29/21 15:10 Hypersegmented Neuts Not Reportable 10/29/21 15:10 Hyposegmented Neuts Not Reportable 10/29/21 15:10 Hypogranular Neuts Not Reportable 10/29/21 15:10 Smudge Cells Not Reportable 10/29/21 15:10 Toxic Granulation Not Reportable 10/29/21 15:10 Toxic Vacuolation Not Reportable 10/29/21 15:10 Dohle Bodies Not Reportable 10/29/21 15:10 Pelger-Huet Anomaly Not Reportable 10/29/21 15:10 Manny Rods Not Reportable 10/29/21 15:10 Platelet Estimate Consistent w auto 10/29/21 15:10 Clumped Platelets Not Reportable 10/29/21 15:10 Plt Clumps, EDTA Not Reportable 10/29/21 15:10 Large Platelets Not Reportable 10/29/21 15:10 Giant Platelets Not Reportable 10/29/21 15:10 Platelet Satelliting Not Reportable 10/29/21 15:10 Plt Morphology Comment Not Reportable 10/29/21 15:10 RBC Morphology Not Reportable 10/29/21 15:10 Dimorphic RBCs Not Reportable 10/29/21 15:10 Polychromasia Not Reportable 10/29/21 15:10 Hypochromasia Not Reportable 10/29/21 15:10 Poikilocytosis 1+ 10/29/21 15:10 Anisocytosis Not Reportable 10/29/21 15:10 Microcytosis 1+ 10/29/21 15:10 Macrocytosis Not Reportable 10/29/21 15:10 Spherocytes Not Reportable 10/29/21 15:10 Pappenheimer Bodies Not Reportable 10/29/21 15:10 Sickle Cells Not Reportable 10/29/21 15:10 Target Cells Not Reportable 10/29/21 15:10 Tear Drop Cells Not Reportable 10/29/21 15:10 Ovalocytes Few 10/29/21 15:10 Helmet Cells Not Reportable 10/29/21 15:10 [place] Bodies Not Reportable 10/29/21 15:10 [place] Rings Not Reportable 10/29/21 15:10 [place] Cells Not Reportable 10/29/21 15:10 Bite Cells Not Reportable 10/29/21 15:10 Crenated Cell Not Reportable 10/29/21 15:10 Elliptocytes Few 10/29/21 15:10 Acanthocytes (Spur) Not Reportable 10/29/21 15:10 Rouleaux Not Reportable 10/29/21 15:10 Hemoglobin C Crystals Not Reportable 10/29/21 15:10 Schistocytes Not Reportable 10/29/21 15:10 Malaria parasites Not Reportable 10/29/21 15:10 Magdy Bodies Not Reportable 10/29/21 15:10 Hem Pathologist Commnt No 10/29/21 15:10 PT 17.2 Sec. (12.2-14.9) H 10/30/21 16:30 INR 1.27 (0.87-1.13) H 10/30/21 16:30 APTT 44.4 Sec. (24.2-36.6) H 10/30/21 16:30 D-Dimer > 20370 ng/mlDDU (0-234) H 10/30/21 Unknown Heparin Anti-Xa Level 0.17 U.I./ml (0.3-0.7) L 11/03/21 06:00 ABG pH 7.274 pH Units (7.350-7.450) L 11/03/21 09:20 ABG pCO2 54.3 mm Hg 11/03/21 09:20 ABG pO2 75.6 mm Hg (80.0-90.0) L 11/03/21 09:20 ABG HCO3 24.6 mmol/L (20.0-26.0) 11/03/21 09:20 ABG O2 Saturation 94.9 % (95.0-99.0) L 11/03/21 09:20 ABG O2 Content 12.2 (0.0-44) 11/03/21 09:20 ABG Base Excess -2.5 mmol/L (-2.0-3.0) L 11/03/21 09:20 ABG Hemoglobin 9.3 gm/dl (12.0-16.0) L 11/03/21 09:20 ABG Carboxyhemoglobin 1.5 % (0.0-5.0) 11/03/21 09:20 ABG Methemoglobin 0.6 % (0.0-1.5) 11/03/21 09:20 Oxyhemoglobin 92.9 % (95.0-99.0) L 11/03/21 09:20 FiO2 40 % 11/03/21 09:20 Sodium 149 mmol/L (137-145) H 11/03/21 06:00 Potassium 5.0 mmol/L (3.6-5.0) 11/03/21 06:00 Chloride 117.5 mmol/L (98-107) H 11/03/21 06:00 Carbon Dioxide 22 mmol/L (22-30) 11/03/21 06:00 Anion Gap 15 mmol/L 11/03/21 06:00 BUN 32 mg/dL (7-17) H 11/03/21 06:00 Creatinine 1.2 mg/dL (0.6-1.2) 11/03/21 06:00 Estimated GFR 54 ml/min 11/03/21 06:00 BUN/Creatinine Ratio 27 % 11/03/21 06:00 Glucose 173 mg/dL (65-100) H 11/03/21 06:00 POC Glucose 192 mg/dL (70-105) H 11/03/21 11:58 Hemoglobin A1c 6.7 % (4-6) H 10/31/21 04:30 Lactic Acid 0.70 mmol/L (0.7-2.0) 10/31/21 15:45 Calcium 8.1 mg/dL (8.4-10.2) L 11/03/21 06:00 Phosphorus 4.40 mg/dL (2.5-4.5) 11/02/21 05:35 Magnesium 2.70 mg/dL (1.7-2.3) H 11/02/21 05:35 Ferritin 208.4 ng/mL (10.0-200.0) H 10/30/21 Unknown Total Bilirubin 0.30 mg/dL (0.1-1.2) 11/01/21 06:00 AST 79 units/L (5-40) H 11/01/21 06:00 ALT 259 units/L (7-56) H 11/01/21 06:00 Alkaline Phosphatase 113 units/L (35-129) 11/01/21 06:00 Ammonia 31.0 umol/L (25-60) 10/29/21 15:10 Lactate Dehydrogenase 469 units/L (91-180) H 10/30/21 Unknown Troponin T 1.150 ng/mL (0.00-0.029) H* D 10/29/21 22:34 C-Reactive Protein 13.40 mg/dL (0.00-1.30) H 10/30/21 Unknown Total Protein 5.5 g/dL (6.3-8.2) L 11/01/21 06:00 Albumin 2.7 g/dL (3.9-5) L 11/01/21 06:00 Albumin/Globulin Ratio 1.0 % 11/01/21 06:00 Triglycerides 68 mg/dL (2-149) 10/29/21 19:40 Cholesterol 98 mg/dL (50-199) 10/29/21 19:40 LDL Cholesterol Direct 43 mg/dL (50-130) L 10/29/21 19:40 HDL Cholesterol 50 mg/dL (40-59) 10/29/21 19:40 Cholesterol/HDL Ratio 1.96 % 10/29/21 19:40 Procalcitonin 61.95 ng/mL (<0.15) 10/30/21 Unknown TSH 3.080 mlU/mL (0.270-4.200) 10/29/21 15:10 Urine Color Straw (Yellow) 10/29/21 18:15 Urine Turbidity Clear (Clear) 10/29/21 18:15 Urine pH 7.0 (5.0-7.0) 10/29/21 18:15 Ur Specific Ethel 1.018 (1.003-1.030) 10/29/21 18:15 Urine Protein 100 mg/dl mg/dL (Negative) 10/29/21 18:15 Urine Glucose (UA) 150 mg/dL (Negative) 10/29/21 18:15 Urine Ketones Neg mg/dL (Negative) 10/29/21 18:15 Urine Blood Mod (Negative) 10/29/21 18:15 Urine Nitrite Neg (Negative) 10/29/21 18:15 Urine Bilirubin Neg (Negative) 10/29/21 18:15 Urine Urobilinogen < 2.0 mg/dL (<2.0) 10/29/21 18:15 Ur Leukocyte Esterase Neg (Negative) 10/29/21 18:15 Urine WBC (Auto) 5.0 /HPF (0.0-6.0) 10/29/21 18:15 Urine RBC (Auto) 2.0 /HPF (0.0-6.0) 10/29/21 18:15 U Epithel Cells (Auto) < 1.0 /HPF (0-13.0) 10/29/21 18:15 Urine Mucus Few /HPF 10/29/21 18:15 Urine Creatinine 383.6 mg/dL (0.1-20.0) H 10/31/21 16:35 Urine Sodium 16 mmol/L 10/31/21 16:35 Salicylates < 0.3 mg/dL (2.8-20.0) L 10/29/21 15:10 Urine Opiates Screen Negative 10/29/21 18:15 Urine Methadone Screen Negative 10/29/21 18:15 Acetaminophen 5.0 ug/mL (10.0-30.0) L 10/29/21 15:10 Ur Barbiturates Screen Negative 10/29/21 18:15 Ur Phencyclidine Scrn Negative 10/29/21 18:15 Ur Amphetamines Screen Negative 10/29/21 18:15 U Benzodiazepines Scrn Negative 10/29/21 18:15 Urine Cocaine Screen Negative 10/29/21 18:15 U Marijuana (THC) Screen Negative 10/29/21 18:15 Drugs of Abuse Note Disclamer 10/29/21 18:15 Plasma/Serum Alcohol < 0.01 % (0-0.07) 10/29/21 15:10 Coronavirus (PCR) Negative (Negative) 10/30/21 Unknown Blood Type O POSITIVE 10/29/21 15:10 Antibody Screen Negative 10/29/21 15:10 Microbiology: Microbiology 10/29/21 Unknown Peripheral/Venous Blood Culture - Preliminary NO GROWTH AFTER 4 DAYS 10/29/21 Unknown Peripheral/Venous Blood Culture - Preliminary NO GROWTH AFTER 4 DAYS 11/01/21 09:11 Tracheal Aspirate Sputum Culture - Preliminary Gregory/IV: Voiding Method Indwelling Catheter Active Medications - Current Medications Current Medications: Generic Name Dose Route Start Last Admin Trade Name Freq PRN Reason Stop Dose Admin Acetaminophen 650 mg 10/29/21 17:04 11/03/21 11:35 Acetaminophen 325 Mg Tab PO 650 mg Q6H PRN Administration Pain, Mild (1-3) Acetaminophen 650 mg 10/29/21 17:04 Acetaminophen 650 Mg Rect Supp AK Q6H PRN Pain MILD(1-3)/Fever >100.5/NIEVES Lipase/Protease/Amylase 1 each 10/31/21 08:56 Lipase 10,500/Protease 25,000/Amylase 43,750 (Units) Dr Ivory FEEDTUBE PRN PRN For Clogged Feeding Tube Dextrose 50 ml 10/30/21 15:21 Dextrose 50% In Water (25gm) 50 Ml Syringe IV Q30MIN PRN Hypoglycemia Protocol Famotidine 20 mg 11/01/21 10:00 11/03/21 09:07 Famotidine 20 Mg Tab FEEDTUBE 20 mg BID RAMON Administration Haloperidol Lactate 5 mg 11/01/21 14:38 11/02/21 21:49 Haloperidol Lactate 5 Mg/1 Ml Inj IV 11/03/21 14:37 5 mg Q6H PRN Administration Agitation Heparin Sodium (Porcine) 4,300 unit 10/30/21 17:00 Heparin 10,000 Units/10 Ml Vial 40 unit/kg (4300 unit) IV Q6H PRN Anti-Xa Assay < 0.1 units/ml Hydrophilic Ointment 1 applic 10/29/21 14:29 Lip Therapy Vaseline TP Q2HR PRN Dry Lips Fentanyl Citrate 2,000 mcg in 100 mls @ 5.67 mls/hr 10/29/21 15:00 11/03/21 11:52 Fentanyl Drip Premix IV 2 mcg/kg/hr TITR RAMON 11.34 mls/hr Administration Protocol 1 MCG/KG/HR NORepinephrine/NS 8 MG-250 ML 8 mg in 250 mls @ 3.75 mls/hr 10/29/21 15:00 11/03/21 09:00 Norepinephrine/Ns 8 Mg-250 Ml (Double Conc) IV 10 mcg/min TITRATE RAMON 18.75 mls/hr Titration Protocol 2 MCG/MIN Heparin Sodium/Sodium Chloride 25,000 unit in 500 mls @ 30 mls/hr 10/30/21 17:00 11/03/21 07:16 Heparin/ 0.45% Nacl-25,000 Unit/500 Ml IV 1,500 units/hr TITR RAMON 30 mls/hr Titration Protocol 1,500 UNITS/HR Amiodarone HCl 900 mg/ 500 mls @ 33.333 mls/hr 11/03/21 11:00 11/03/21 11:56 Dextrose IV 1 mg/min DIRECT RAMON 33.333 mls/hr Administration Protocol 1 MG/MIN Insulin Human Lispro 0 unit 10/30/21 16:00 11/03/21 12:05 Insulin Lispro 100 Unit/Ml SUB-Q 1 unit Q6HR RAMON Administration Protocol Multi-Ingred Cream/Lotion/Oil/Oint 1 applic 10/29/21 14:29 Mineral Oil/Petrolatum, White Ophth Oint 3.5 Gm OU Q4HR PRN Dry Eye(s) Quetiapine Fumarate 50 mg 11/02/21 22:00 11/03/21 09:05 Quetiapine 25 Mg Tab PO 50 mg BID RAMON Administration Senna/Docusate Sodium 1 tab 10/29/21 15:00 11/03/21 09:05 Sennosides/Docusate Sodium 8.6/50 Mg Tab FEEDTUBE 1 tab BID RAMON Administration Simple Syrup 15 ml 10/31/21 08:56 Simple Syrup 15 Ml FEEDTUBE PRN PRN Hypoglycemia Simple Syrup 30 ml 10/31/21 08:56 Simple Syrup 15 Ml FEEDTUBE PRN PRN Hypoglycemia Sodium Bicarbonate 325 mg 10/31/21 08:56 Sodium Bicarbonate 325 Mg Tab FEEDTUBE PRN PRN For Clogged Feeding Tube Sodium Chloride 10 ml 10/29/21 22:00 11/03/21 09:06 Sodium Chloride 0.9% 10 Ml Flush Syringe IV 10 ml BID RAMON Administration Sodium Chloride 10 ml 10/29/21 17:04 Sodium Chloride 0.9% 10 Ml Flush Syringe IV PRN PRN LINE FLUSH Nutrition/Malnutrition Assess - Dietary Evaluation Nutrition/Malnutrition Findings: Nutrition Notes Start: 10/30/21 09:50 Freq: Status: Active Protocol: Document 11/03/21 12:36 MEENU (Rec: 11/03/21 12:50 MEENU [id number]) Nutrition Notes Initial or Follow up Brief Note Current Diet TF-Vital HP @ 60 ml/hr (since L 10/31). Height 5 ft 10 in Weight 106.7 kg [place] Body Weight (kg) 68.18 BMI 33.7 Weight change and time frame No body weight change reported in 4 days. Weight Status Obese Subjective/Other Information RD consult for routine F/U on TF tolerance. TF continues as prescribed and well tolerated, according to RN notes. Percent of energy/protein needs met: Prescribed Vital HP @ 60 ml/hr provides for energy/protein needs (1,440 Kcal/126 g) during LOS, 90% Kcal; 93% AA. #1 Nutrition Diagnosis Inadequate oral intake Diagnosis Progress(for reassessment Continues documentation) Is patient on ventilator? Yes Is Patient Ambulatory and/or Out of Bed No REE-([facility]-confined to bed) 2022.848 Kcal/Kg value to use for calculation 15 Approximate Energy Requirements Using 1601 kcal/Kg Calculation Used for Recommendations Kcal/kg Additional Notes Protein: 2 g/Kg IBW; 136 g/day . Fluids: 1 ml/Kcal, or as per MD. Nutrition Intervention Nutrition Support: Continue Vital HP @ 60 ml/hr. Flush: 50 ml water Q 4 hr, or as per MD. Kcal 1,440 Protein (gm) 126 Carbohydrates (gm) 161 Fat (gm) 33 Fluid (mL) 1,204 Fiber (gm) 0 % RDI: 90% Kcal; 93% AA. Goal #1 Provide at least 75% of energy /protein needs through Enteral Feeding during LOS. Goal #2 Maintain body weight within +/ -3% of admission body weight during LOS. Follow-Up By: 11/10/21 Additional Comments Continue monitoring TF tolerance and BM.
--- NOTE | 2021-11-01 12:57 | Progress Note ---
Assessment and Plan Acute hypoxemic respiratory failure on MVS Cardiac arrest with ROSC Acute DVT Right pneumothorax Shock (septic +/- cardiogenic) Possible aspiration pneumonia SIERRA Altered mental status/acute encephalopathy Elevated serum transaminases, likely shock liver Metabolic acidosis Obesity Leukocytosis Hypokalemia Lactic acidosis - FENA pre-renal - complete IVF resuscitation - add prn Haldol and scheduled Seroquel for anxiolysis - 2 gms MgSO4 IV X 1 re: arhythmia's - get ABG now and address - follow platelets in am; if drops further will transition off IV Heparin and send HIT assay - complete empiric CAP therapy with Rocephin and Zithromax - continue care as bel;ow otherwise; - vasopressors for target MAP > 65 mmHg - continue full anticoagulation with IV Heparin re: DVT - continue Daily SAT and SBT assessment as tolerated - continue to wean supplemental oxygen for target O2 sat's > 90% acutely - VAP bundle addressed - continue lung protective strategies - continue bronchodilators with pulmonary hygiene per RT - wean per pulmonary driven protocols otherwise - continue accuchecks with glycemic control per SSI (While critically ill target blood glucose of 140-180 mg/dL; avoid hypoglycemia) - sedation prn for target RASS 0 to -1 - avoid nephrotoxins, renally dose all medications - continue to avoid benzodiazepine's, reduce the possibility of delirium - AB's per ID rec's - prn analgesia per CPOT score - Maintenance of sleep-wake cycle, avoid delirium - continue enteral nutritional support at goal rate as tolerated - G.I. & VTE prophylaxis - PT/OT/ROM exercises - continue mobility protocols for pressure ulcer prophylaxis - Monitor hemodynamics closely - continue other care per attending / other consultants - discharge planning ongoing concurrently COVID SPECIFIC INTERVENTIONS - COVID-19 PCR negative .... Re-evaluate in am & prn CONDITION: CRITICAL PROGNOSIS: GUARDED CODE STATUS: FULL CODE The high probability of a clinically significant, sudden or life-threatening deterioration of the [respiratory, cardiovascular, renal & neurologic] system(s) required my full and direct attention, intervention and personal management. The aggregate critical care time was [33] minutes without overlap. Time includes spent on; [x] Data Review and interpretation [x] Patient assessment and monitoring of vital signs [x] Documentation [x] Medication orders and management Subjective Date of service: 11/01/21 Principal diagnosis: AHRF; Cardiac arrest; R. pneumothorax; pneumonia; AMS; DVT's; SIERRA; Obesity Interval history: Patient is seen today for: Acute hypoxemic respiratory failure; Cardiac arrest with ROSC; Right pneumothorax; pneumonia; AMS; bilateral DVT's; SIERRA; Obesity Seen and examined at bedside; 24hour events reviewed; nursing and respiratory care staff consulted; no adverse overnight events reported to me; remains on MVS; agitated earlier despite being on Fentanyl drip; BP's labile; denies pain; ABG result pending; No N/V/F/C; no BM's past 3 days; episode of non-sustained SVT to the 170's earlier; platelet count falling Objective Vital Signs - 12hr 11/01/21 11/01/21 11/01/21 01:00 01:15 01:31 Temperature Pulse Rate 111 H 95 H 94 H Pulse Rate [ From Monitor] Respiratory 20 20 20 Rate Blood Pressure 133/78 147/70 99/50 O2 Sat by Pulse 98 98 99 Oximetry 11/01/21 11/01/21 11/01/21 01:45 02:01 02:15 Temperature Pulse Rate 98 H 129 H 105 H Pulse Rate [ From Monitor] Respiratory 21 14 20 Rate Blood Pressure 120/77 120/77 127/57 O2 Sat by Pulse 98 96 97 Oximetry 11/01/21 11/01/21 11/01/21 02:31 02:45 03:00 Temperature Pulse Rate 91 H 96 H 86 Pulse Rate [ From Monitor] Respiratory 20 20 20 Rate Blood Pressure 114/53 112/62 109/52 O2 Sat by Pulse 100 100 99 Oximetry 11/01/21 11/01/21 11/01/21 03:15 03:30 03:45 Temperature Pulse Rate 85 83 79 Pulse Rate [ From Monitor] Respiratory 20 20 20 Rate Blood Pressure 116/55 107/56 105/55 O2 Sat by Pulse 100 100 100 Oximetry 11/01/21 11/01/21 11/01/21 04:00 04:01 04:05 Temperature 99.9 F H Pulse Rate 96 H 102 H 97 H Pulse Rate [ From Monitor] Respiratory 22 20 Rate Blood Pressure 136/90 136/90 O2 Sat by Pulse 93 93 99 Oximetry 11/01/21 11/01/21 11/01/21 04:15 04:31 04:45 Temperature Pulse Rate 91 H 111 H 102 H Pulse Rate [ From Monitor] Respiratory 20 20 20 Rate Blood Pressure 121/63 145/75 149/65 O2 Sat by Pulse 98 95 94 Oximetry 11/01/21 11/01/21 11/01/21 05:01 05:15 05:30 Temperature Pulse Rate 115 H 99 H 96 H Pulse Rate [ From Monitor] Respiratory 20 20 20 Rate Blood Pressure 163/67 116/59 O2 Sat by Pulse 94 97 99 Oximetry 11/01/21 11/01/21 11/01/21 05:45 06:01 06:15 Temperature Pulse Rate 88 100 H 103 H Pulse Rate [ From Monitor] Respiratory 20 20 20 Rate Blood Pressure 103/51 140/98 O2 Sat by Pulse 99 93 Oximetry 11/01/21 11/01/21 11/01/21 06:31 06:45 07:01 Temperature Pulse Rate 95 H 113 H 102 H Pulse Rate [ From Monitor] Respiratory 20 16 20 Rate Blood Pressure 106/57 106/57 119/74 O2 Sat by Pulse 94 95 93 Oximetry 11/01/21 11/01/21 11/01/21 07:15 07:31 07:45 Temperature Pulse Rate 89 100 H 99 H Pulse Rate [ From Monitor] Respiratory 20 20 20 Rate Blood Pressure 91/59 102/60 102/60 O2 Sat by Pulse 94 95 95 Oximetry 11/01/21 11/01/21 11/01/21 08:00 08:01 08:30 Temperature 99.9 F H Pulse Rate 91 H 103 H 86 Pulse Rate [ 93 H From Monitor] Respiratory 20 20 20 Rate Blood Pressure 124/71 98/59 O2 Sat by Pulse 95 95 99 Oximetry 11/01/21 11/01/21 11/01/21 08:50 09:00 09:31 Temperature Pulse Rate 82 82 110 H Pulse Rate [ From Monitor] Respiratory 20 20 Rate Blood Pressure 98/64 98/64 85/67 O2 Sat by Pulse 90 96 83 L Oximetry 11/01/21 11/01/21 11/01/21 09:43 09:48 10:00 Temperature Pulse Rate 88 90 Pulse Rate [ From Monitor] Respiratory 20 Rate Blood Pressure 98/64 98/54 O2 Sat by Pulse 92 92 90 Oximetry 11/01/21 11/01/21 11/01/21 10:31 11:01 11:18 Temperature Pulse Rate 133 H 107 H Pulse Rate [ From Monitor] Respiratory 19 20 Rate Blood Pressure 136/81 89/40 91/47 O2 Sat by Pulse 93 94 Oximetry 11/01/21 11/01/21 12:00 12:10 Temperature Pulse Rate 107 H Pulse Rate [ 120 H From Monitor] Respiratory 22 Rate Blood Pressure 91/47 O2 Sat by Pulse 95 94 Oximetry Constitutional: appears uncomfortable, other (elderly obese femal with mildly increased respiratory effort at rest on MVS) Eyes: non-icteric ENT: oropharynx moist, other (ETT 23 cm KRYSTAL) Neck: supple, no lymphadenopathy, no JVD Effort: mildly labored Ascultation: Bilateral: diminished breath sounds, rhonchi Percussion: Bilateral: not dull Cardiovascular: regular rate and rhythm Gastrointestinal: normoactive bowel sounds, soft, non-tender, non-distended (protuberant) Integumentary: normal Extremities: no cyanosis, no edema, pulses normal, no ischemia or petechiae Neurologic: non-focal exam (grossly), pupils equal and round, motor strength n ormal and Psychiatric: anxious CBC and BMP: 11/01/21 06:00 11/01/21 06:00 ABG, PT/INR, D-dimer: ABG ABG pH 7.267 pH Units (7.350-7.450) L 10/31/21 17:45 ABG pCO2 46.8 mm Hg 10/31/21 17:45 ABG pO2 58.3 mm Hg (80.0-90.0) L 10/31/21 17:45 ABG O2 Saturation 88.3 % (95.0-99.0) L 10/31/21 17:45 PT/INR, D-dimer PT 17.2 Sec. (12.2-14.9) H 10/30/21 16:30 INR 1.27 (0.87-1.13) H 10/30/21 16:30 D-Dimer > 97274 ng/mlDDU (0-234) H 10/30/21 Unknown Abnormal lab findings: Abnormal Labs 10/29/21 10/29/21 10/29/21 15:10 15:10 15:10 WBC 27.8 H RBC Hgb Hct MCH 27 L RDW Plt Count Lymph % (Auto) Lymph # (Auto) Gilliam # (Auto) Seg Neutrophils % Seg Neuts % (Manual) 78.0 H Lymphocytes % (Manual) 10.0 L Seg Neutrophils # Seg Neutrophils # Man 21.7 H Monocytes # (Manual) 1.4 H PT INR APTT D-Dimer Heparin Anti-Xa Level ABG pH ABG pO2 ABG O2 Saturation ABG Base Excess ABG Hemoglobin Oxyhemoglobin Sodium Potassium Chloride Carbon Dioxide BUN Creatinine Glucose POC Glucose Hemoglobin A1c Lactic Acid 6.80 H* Calcium Magnesium Ferritin AST ALT Alkaline Phosphatase Lactate Dehydrogenase Troponin T 0.089 H C-Reactive Protein Total Protein Albumin LDL Cholesterol Direct Urine Creatinine Salicylates Acetaminophen 10/29/21 10/29/21 10/29/21 15:10 15:10 15:10 WBC RBC Hgb Hct MCH RDW Plt Count Lymph % (Auto) Lymph # (Auto) Gilliam # (Auto) Seg Neutrophils % Seg Neuts % (Manual) Lymphocytes % (Manual) Seg Neutrophils # Seg Neutrophils # Man Monocytes # (Manual) PT INR APTT D-Dimer Heparin Anti-Xa Level ABG pH ABG pO2 ABG O2 Saturation ABG Base Excess ABG Hemoglobin Oxyhemoglobin Sodium 136 L Potassium 2.8 L* Chloride 93.4 L Carbon Dioxide 20 L BUN Creatinine Glucose 330 H POC Glucose Hemoglobin A1c Lactic Acid Calcium Magnesium Ferritin AST 1013 H ALT 1289 H Alkaline Phosphatase 246 H Lactate Dehydrogenase Troponin T C-Reactive Protein Total Protein Albumin LDL Cholesterol Direct Urine Creatinine Salicylates < 0.3 L Acetaminophen 5.0 L 10/29/21 10/29/21 10/29/21 15:11 16:01 19:29 WBC RBC Hgb Hct MCH RDW Plt Count Lymph % (Auto) Lymph # (Auto) Gilliam # (Auto) Seg Neutrophils % Seg Neuts % (Manual) Lymphocytes % (Manual) Seg Neutrophils # Seg Neutrophils # Man Monocytes # (Manual) PT INR APTT D-Dimer Heparin Anti-Xa Level ABG pH 7.307 L ABG pO2 64.1 L ABG O2 Saturation 90.8 L ABG Base Excess -2.9 L ABG Hemoglobin Oxyhemoglobin 89.3 L Sodium Potassium Chloride Carbon Dioxide BUN Creatinine Glucose POC Glucose Hemoglobin A1c Lactic Acid 2.60 H* Calcium Magnesium 2.90 H Ferritin AST ALT Alkaline Phosphatase Lactate Dehydrogenase Troponin T C-Reactive Protein Total Protein Albumin LDL Cholesterol Direct Urine Creatinine Salicylates Acetaminophen 10/29/21 10/29/21 10/30/21 19:40 22:34 04:30 WBC 16.2 H RBC Hgb Hct MCH 26 L RDW 15.5 H Plt Count Lymph % (Auto) 6.2 L Lymph # (Auto) 1.0 L Gilliam # (Auto) 0.9 H Seg Neutrophils % 88.1 H Seg Neuts % (Manual) Lymphocytes % (Manual) Seg Neutrophils # 14.2 H Seg Neutrophils # Man Monocytes # (Manual) PT INR APTT D-Dimer Heparin Anti-Xa Level ABG pH ABG pO2 ABG O2 Saturation ABG Base Excess ABG Hemoglobin Oxyhemoglobin Sodium Potassium Chloride Carbon Dioxide BUN Creatinine Glucose POC Glucose Hemoglobin A1c Lactic Acid Calcium Magnesium Ferritin AST ALT Alkaline Phosphatase Lactate Dehydrogenase Troponin T 1.950 H* D 1.150 H* D C-Reactive Protein Total Protein Albumin LDL Cholesterol Direct 43 L Urine Creatinine Salicylates Acetaminophen 10/30/21 10/30/21 10/30/21 04:30 04:35 05:45 WBC RBC Hgb Hct MCH RDW Plt Count Lymph % (Auto) Lymph # (Auto) Gilliam # (Auto) Seg Neutrophils % Seg Neuts % (Manual) Lymphocytes % (Manual) Seg Neutrophils # Seg Neutrophils # Man Monocytes # (Manual) PT INR APTT D-Dimer Heparin Anti-Xa Level ABG pH ABG pO2 69.5 L ABG O2 Saturation ABG Base Excess -2.7 L ABG Hemoglobin Oxyhemoglobin 94.7 L Sodium Potassium Chloride Carbon Dioxide 21 L BUN Creatinine Glucose 159 H POC Glucose 151 H Hemoglobin A1c Lactic Acid Calcium 7.9 L D Magnesium Ferritin AST 461 H ALT 686 H Alkaline Phosphatase 130 H Lactate Dehydrogenase Troponin T C-Reactive Protein Total Protein 5.6 L D Albumin 3.2 L LDL Cholesterol Direct Urine Creatinine Salicylates Acetaminophen 10/30/21 10/30/21 10/30/21 11:24 15:59 16:30 WBC RBC Hgb Hct MCH RDW Plt Count Lymph % (Auto) Lymph # (Auto) Gilliam # (Auto) Seg Neutrophils % Seg Neuts % (Manual) Lymphocytes % (Manual) Seg Neutrophils # Seg Neutrophils # Man Monocytes # (Manual) PT 17.2 H INR 1.27 H APTT 44.4 H D-Dimer Heparin Anti-Xa Level ABG pH ABG pO2 ABG O2 Saturation ABG Base Excess ABG Hemoglobin Oxyhemoglobin Sodium Potassium Chloride Carbon Dioxide BUN Creatinine Glucose POC Glucose 153 H 109 H Hemoglobin A1c Lactic Acid Calcium Magnesium Ferritin AST ALT Alkaline Phosphatase Lactate Dehydrogenase Troponin T C-Reactive Protein Total Protein Albumin LDL Cholesterol Direct Urine Creatinine Salicylates Acetaminophen 10/30/21 10/30/21 10/30/21 23:00 Unknown Unknown WBC RBC Hgb Hct MCH RDW Plt Count Lymph % (Auto) Lymph # (Auto) Gilliam # (Auto) Seg Neutrophils % Seg Neuts % (Manual) Lymphocytes % (Manual) Seg Neutrophils # Seg Neutrophils # Man Monocytes # (Manual) PT INR APTT D-Dimer > 48845 H Heparin Anti-Xa Level 0.82 H ABG pH ABG pO2 ABG O2 Saturation ABG Base Excess ABG Hemoglobin Oxyhemoglobin Sodium Potassium Chloride Carbon Dioxide BUN Creatinine Glucose POC Glucose Hemoglobin A1c Lactic Acid Calcium Magnesium Ferritin 208.4 H AST ALT Alkaline Phosphatase Lactate Dehydrogenase Troponin T C-Reactive Protein Total Protein Albumin LDL Cholesterol Direct Urine Creatinine Salicylates Acetaminophen 10/30/21 10/31/21 10/31/21 Unknown 04:30 04:30 WBC 14.4 H RBC Hgb Hct MCH 26 L RDW Plt Count Lymph % (Auto) Lymph # (Auto) Gilliam # (Auto) Seg Neutrophils % Seg Neuts % (Manual) Lymphocytes % (Manual) Seg Neutrophils # Seg Neutrophils # Man Monocytes # (Manual) PT INR APTT D-Dimer Heparin Anti-Xa Level ABG pH ABG pO2 ABG O2 Saturation ABG Base Excess ABG Hemoglobin Oxyhemoglobin Sodium Potassium 3.5 L Chloride 107.5 H Carbon Dioxide 20 L BUN 28 H Creatinine 1.7 H Glucose 113 H POC Glucose Hemoglobin A1c Lactic Acid Calcium 7.9 L Magnesium Ferritin AST ALT Alkaline Phosphatase Lactate Dehydrogenase 469 H Troponin T C-Reactive Protein 13.40 H Total Protein Albumin LDL Cholesterol Direct Urine Creatinine Salicylates Acetaminophen 10/31/21 10/31/21 10/31/21 04:30 05:11 15:30 WBC RBC Hgb Hct MCH RDW Plt Count Lymph % (Auto) Lymph # (Auto) Gilliam # (Auto) Seg Neutrophils % Seg Neuts % (Manual) Lymphocytes % (Manual) Seg Neutrophils # Seg Neutrophils # Man Monocytes # (Manual) PT INR APTT D-Dimer Heparin Anti-Xa Level ABG pH 7.222 L ABG pO2 61.5 L ABG O2 Saturation 86.2 L ABG Base Excess -6.3 L ABG Hemoglobin 11.2 L Oxyhemoglobin 84.5 L Sodium Potassium Chloride Carbon Dioxide BUN Creatinine Glucose POC Glucose 106 H Hemoglobin A1c 6.7 H Lactic Acid Calcium Magnesium Ferritin AST ALT Alkaline Phosphatase Lactate Dehydrogenase Troponin T C-Reactive Protein Total Protein Albumin LDL Cholesterol Direct Urine Creatinine Salicylates Acetaminophen 10/31/21 10/31/21 10/31/21 16:07 16:35 17:45 WBC RBC Hgb Hct MCH RDW Plt Count Lymph % (Auto) Lymph # (Auto) Gilliam # (Auto) Seg Neutrophils % Seg Neuts % (Manual) Lymphocytes % (Manual) Seg Neutrophils # Seg Neutrophils # Man Monocytes # (Manual) PT INR APTT D-Dimer Heparin Anti-Xa Level ABG pH 7.267 L ABG pO2 58.3 L ABG O2 Saturation 88.3 L ABG Base Excess -5.9 L ABG Hemoglobin 10.1 L Oxyhemoglobin 86.5 L Sodium Potassium Chloride Carbon Dioxide BUN Creatinine Glucose POC Glucose 115 H Hemoglobin A1c Lactic Acid Calcium Magnesium Ferritin AST ALT Alkaline Phosphatase Lactate Dehydrogenase Troponin T C-Reactive Protein Total Protein Albumin LDL Cholesterol Direct Urine Creatinine 383.6 H Salicylates Acetaminophen 11/01/21 11/01/21 11/01/21 00:06 05:08 06:00 WBC 12.6 H RBC 3.43 L Hgb 8.9 L Hct 28.7 L MCH 26 L RDW 15.7 H Plt Count 130 L Lymph % (Auto) Lymph # (Auto) Gilliam # (Auto) Seg Neutrophils % Seg Neuts % (Manual) Lymphocytes % (Manual) Seg Neutrophils # Seg Neutrophils # Man Monocytes # (Manual) PT INR APTT D-Dimer Heparin Anti-Xa Level ABG pH ABG pO2 ABG O2 Saturation ABG Base Excess ABG Hemoglobin Oxyhemoglobin Sodium Potassium Chloride Carbon Dioxide BUN Creatinine Glucose POC Glucose 114 H 120 H Hemoglobin A1c Lactic Acid Calcium Magnesium Ferritin AST ALT Alkaline Phosphatase Lactate Dehydrogenase Troponin T C-Reactive Protein Total Protein Albumin LDL Cholesterol Direct Urine Creatinine Salicylates Acetaminophen 11/01/21 11/01/21 06:00 11:43 WBC RBC Hgb Hct MCH RDW Plt Count Lymph % (Auto) Lymph # (Auto) Gilliam # (Auto) Seg Neutrophils % Seg Neuts % (Manual) Lymphocytes % (Manual) Seg Neutrophils # Seg Neutrophils # Man Monocytes # (Manual) PT INR APTT D-Dimer Heparin Anti-Xa Level ABG pH ABG pO2 ABG O2 Saturation ABG Base Excess ABG Hemoglobin Oxyhemoglobin Sodium Potassium Chloride 114.1 H Carbon Dioxide 20 L BUN 33 H Creatinine Glucose 131 H POC Glucose 151 H Hemoglobin A1c Lactic Acid Calcium 7.7 L Magnesium Ferritin AST 79 H ALT 259 H Alkaline Phosphatase Lactate Dehydrogenase Troponin T C-Reactive Protein Total Protein 5.5 L Albumin 2.7 L LDL Cholesterol Direct Urine Creatinine Salicylates Acetaminophen Chest x-ray: image reviewed (chest tube in place; hypoventilation) Allied health notes reviewed: nursing
[2021-11-01] MEDS ORDERED: MAGNESIUM SULFATE 2 GM/50 ML BAG IV ONE (14:09)
--- NOTE | 2021-11-01 14:24 | Progress Note ---
Assessment and Plan Patient is a 66-year-old female with unknown past medical history brought into the ED following outside of hospital cardiac arrest thought to be PEA with thought to have downtime of 7 to 9 minutes however details are unclear S/P PEA cardiopulmonary arrest Acute hypoxic respiratory failure-pulm following Septic shock Aspiration pneumonia Pneumothorax- s/p CT Acute DVT-on Heparin gtt Hypokalemia Transaminitis Echo 10/30/2021-technically difficult study due to body habitus. EF 25 to 30%. Right ventricular systolic function is normal. No pericardial effusion Plan: Patient was trending sinus rhythm 80s to 90s on monitor however this a.m. patient extremely agitated and heart rate elevated into 150s-160s. Unclear as to whether sinus tach or possible A. fib with RVR however Once patient heart rate slowed they were sinus tach 130s. Patient received Ativan for agitation and heart rate slowed to sinus 80s. Patient also had soft blood pressure with SBP 90. We will continue to hold beta-blockers due to low BP If patient heart rate becomes elevated and remains and is not associated with agitation will consider initiation of amiodarone No LAYO/ ARB due to elevated creatinine and soft BP Continue anticoagulation for DVT Patient seen in conjunction with Dr. Cueto who agrees with this plan of care 30minutes of critical care time spent in coordination of care of patient - Patient Problems (1) Cardiopulmonary arrest Current Visit: Yes Status: Acute (2) Hypokalemia Current Visit: Yes Status: Acute (3) Transaminitis Current Visit: Yes Status: Acute (4) Aspiration pneumonia Current Visit: Yes Status: Acute (5) Acute hypoxemic respiratory failure Current Visit: Yes Status: Acute (6) Septic shock Current Visit: Yes Status: Acute (7) Toxic metabolic encephalopathy Current Visit: Yes Status: Acute (8) Shock liver Current Visit: Yes Status: Acute Subjective Date of service: 11/01/21 Principal diagnosis: AHRF; Cardiac arrest; R. pneumothorax; pneumonia; AMS; DVT's; SIERRA; Obesity Interval history: Patient remains intubated however patient was awake and extremely agitated this is a.m. Patient was trending sinus 80s to 90s on monitor with PVCs. However when going to examine patient patient was awake and extremely agitated heart rate elevated into the 150s Objective Vital Signs Temp Pulse Pulse Resp BP Pulse Ox 11/01/21 13:00 79 20 93/58 98 11/01/21 12:30 83 20 98/59 97 11/01/21 12:10 107 H 91/47 94 11/01/21 12:00 99.6 F 86 120 H 20 95/59 97 11/01/21 11:30 86 20 89/50 95 11/01/21 11:18 91/47 11/01/21 11:01 107 H 20 89/40 94 11/01/21 10:31 133 H 19 136/81 93 11/01/21 10:00 90 20 98/54 90 11/01/21 09:48 88 98/64 92 11/01/21 09:43 92 11/01/21 09:31 110 H 20 85/67 83 L 11/01/21 09:00 82 20 98/64 96 11/01/21 08:50 82 98/64 90 11/01/21 08:30 86 20 98/59 99 11/01/21 08:01 103 H 20 124/71 95 11/01/21 08:00 99.9 F H 91 H 93 H 20 95 11/01/21 07:45 99 H 20 102/60 95 11/01/21 07:31 100 H 20 102/60 95 11/01/21 07:15 89 20 91/59 94 11/01/21 07:01 102 H 20 119/74 93 11/01/21 06:45 113 H 16 106/57 95 11/01/21 06:31 95 H 20 106/57 94 11/01/21 06:15 103 H 20 140/98 93 11/01/21 06:01 100 H 20 99 11/01/21 05:45 88 20 103/51 11/01/21 05:30 96 H 20 116/59 99 11/01/21 05:15 99 H 20 97 11/01/21 05:01 115 H 20 163/67 94 11/01/21 04:45 102 H 20 149/65 94 11/01/21 04:31 111 H 20 145/75 95 11/01/21 04:15 91 H 20 121/63 98 11/01/21 04:05 97 H 136/90 99 11/01/21 04:01 102 H 20 136/90 93 11/01/21 04:00 99.9 F H 96 H 22 93 11/01/21 03:45 79 20 105/55 100 11/01/21 03:30 83 20 107/56 100 11/01/21 03:15 85 20 116/55 100 11/01/21 03:00 86 20 109/52 99 11/01/21 02:45 96 H 20 112/62 100 11/01/21 02:31 91 H 20 114/53 100 11/01/21 02:15 105 H 20 127/57 97 11/01/21 02:01 129 H 14 120/77 96 11/01/21 01:45 98 H 21 120/77 98 11/01/21 01:31 94 H 20 99/50 99 11/01/21 01:15 95 H 20 147/70 98 11/01/21 01:00 111 H 20 133/78 98 11/01/21 00:45 117 H 20 123/81 98 11/01/21 00:31 121 H 18 141/81 97 11/01/21 00:15 124 H 17 113/95 98 11/01/21 00:03 112 H 20 118/87 97 11/01/21 00:00 101.3 F H 106 H 92 H 18 118/87 97 10/31/21 23:30 85 20 107/67 98 10/31/21 23:01 98 H 20 132/78 98 10/31/21 22:31 85 20 99/69 96 10/31/21 22:00 86 20 100/62 97 10/31/21 21:31 91 H 20 96/55 98 10/31/21 21:00 94 H 20 111/70 97 10/31/21 20:30 101 H 17 133/78 96 10/31/21 20:06 91 H 115/73 100 10/31/21 20:00 94 H 92 H 20 115/73 100 10/31/21 19:49 99.3 F 10/31/21 19:30 88 20 95/62 100 10/31/21 19:00 86 20 91/56 100 10/31/21 18:31 86 20 81/49 99 10/31/21 18:00 91 H 20 96/51 98 10/31/21 17:30 103 H 20 96/61 98 10/31/21 17:25 109 H 104/64 98 10/31/21 17:01 113 H 13 107/74 94 10/31/21 16:39 98.1 F 10/31/21 16:30 110 H 12 96/59 96 10/31/21 16:00 110 H 111 H 12 86/56 96 10/31/21 15:30 115 H 12 100/66 95 10/31/21 15:00 117 H 12 100/65 93 10/31/21 14:30 117 H 12 104/60 93 - Physical Examination General: Other (Intubated and sedated) HEENT: Positive: Normocephaly Cardiac: Positive: Reg Rate and Rhythm Lungs: Positive: Ventilated Respirations Neuro: Positive: Other (Unable to assess due to intubation sedated) Abdomen: Positive: Soft Skin: Negative: Rash, Suspicious Lesions Extremities: Present: upper extr. pulses, edema - Labs and Meds Cardiac Enzymes 11/01/21 Range/Units 06:00 AST 79 H (5-40) units/L CBC 11/01/21 Range/Units 06:00 WBC 12.6 H (4.5-11.0) K/mm3 RBC 3.43 L (3.65-5.03) M/mm3 Hgb 8.9 L (10.1-14.3) gm/dl Hct 28.7 L (30.3-42.9) % Plt Count 130 L (140-440) K/mm3 Comprehensive Metabolic Panel 11/01/21 Range/Units 06:00 Sodium 144 (137-145) mmol/L Potassium 4.3 D (3.6-5.0) mmol/L Chloride 114.1 H (98-107) mmol/L Carbon Dioxide 20 L (22-30) mmol/L BUN 33 H (7-17) mg/dL Creatinine 1.2 (0.6-1.2) mg/dL Glucose 131 H (65-100) mg/dL Calcium 7.7 L (8.4-10.2) mg/dL AST 79 H (5-40) units/L ALT 259 H (7-56) units/L Alkaline Phosphatase 113 (35-129) units/L Total Protein 5.5 L (6.3-8.2) g/dL Albumin 2.7 L (3.9-5) g/dL - Imaging and Cardiology Echo: report reviewed - Telemetry EKG Rhythm: Sinus Rhythm - EKG Sinus rhythms and dysrhythmias: sinus rhythm Ventricular dysrhythmias: ventricular premature com - Allied health notes Allied health notes reviewed: nursing
[2021-11-01 14:44] LABS: ABG Base Excess -3.9 mmol/L (-2.0-3.0); ABG HCO3 21.4 mmol/L (20.0-26.0); ABG Methemoglobin 0.5 % (0.0-1.5); ABG Oxygen Saturation 95.2 % (95.0-99.0); ABG PCO2 39.7 mm Hg; ABG PH 7.349 pH Units (7.350-7.450); ABG PO2 75.6 mm Hg (80.0-90.0)
[2021-11-01] MEDS: HALOPERIDOL LACTATE 5 MG/1 ML INJ IV PRN (14:51)
--- NOTE | 2021-11-01 15:15 | XRay Report ---
CHEST 1 VIEW INDICATION / CLINICAL INFORMATION: follow up respiratory failure. COMPARISON: Chest x-ray 10/30/2021 FINDINGS: SUPPORT DEVICES: Stable, satisfactory device positioning. HEART / MEDIASTINUM: No significant abnormality. LUNGS / PLEURA: No significant interval change in bilateral perihilar and left basilar lung opacities . Trace right apical pneumothorax. ADDITIONAL FINDINGS: No significant additional findings. IMPRESSION: 1. No adverse interval change. Persistent bilateral perihilar left basilar lung opacities. 2. Trace right apical pneumothorax, stable. Signer Name: Martínez Rosenberg II, MD Signed: 10/31/2021 7:24 AM Workstation Name: [id number]
[2021-11-01] MEDS: AZITHROMYCIN/NS 500 MG/250 ML 500 MG/250 ML BAG IV SCH (18:00)
[2021-11-01] MEDS: cefTRIAXone/NS 2 GM/100 ML 2 GM/100 ML BAG IV SCH (18:00)
[2021-11-01] MEDS: QUEtiapine 100 MG TAB PO SCH (21:34)
[2021-11-02] MEDS: INSULIN LISPRO 100 UNIT/ML SUB-Q SCH ×4 (00:37→18:19)
[2021-11-02] MEDS: fentaNYL DRIP Premix 2,000 MCG/100 ML BAG IV SCH ×2 (01:04→07:51)
--- NOTE | 2021-11-02 04:29 | XRay Report ---
CHEST 1 VIEW INDICATION / CLINICAL INFORMATION: follow up respiratory failure. COMPARISON: Chest x-ray 11/01/2021 FINDINGS: SUPPORT DEVICES: Stable, satisfactory device positioning. HEART / MEDIASTINUM: No significant abnormality. LUNGS / PLEURA: Low lung volumes. Bibasilar opacities minimal change from comparison. Upper lungs trev ar. No significant pneumothorax. ADDITIONAL FINDINGS: No significant additional findings. IMPRESSION: 1. Low lung volumes with little change in bilateral mid and lower lung opacities. 2. Stable tubes and lines. Signer Name: Martínez Rosenberg II, MD Signed: 11/02/2021 4:25 AM Workstation Name: [id number]
[2021-11-02 06:08] LABS: Calcium 8.2 mg/dL (8.4-10.2)
[2021-11-02 06:24] LABS: Hematocrit 30.9 % (30.3-42.9); Hemoglobin 9.7 gm/dl (10.1-14.3); Mean Corpuscular HGB Conc 31 % (30-34); Mean Corpuscular Volume 86 fl (79-97); Platelet Count 158 K/mm3 (140-440); Red Cell Distribution Width 15.7 % (13.2-15.2)
[2021-11-02] MEDS ORDERED: SODIUM POLYSTYRENE 15 GM/60 ML ORAL LIQD PO SCH (09:00)
[2021-11-02] MEDS: QUEtiapine 100 MG TAB PO SCH (09:44)
[2021-11-02] MEDS: SENNOSIDES/DOCUSATE SODIUM 8.6/50 MG TAB FEEDTUBE SCH ×2 (09:44→21:36)
--- NOTE | 2021-11-02 09:44 | XRay Report ---
CHEST 1 VIEW INDICATION / CLINICAL INFORMATION: follow up respiratory failure. COMPARISON: Chest x-ray 10/29/2021 FINDINGS: SUPPORT DEVICES: Stable, satisfactory device positioning. HEART / MEDIASTINUM: No significant abnormality. LUNGS / PLEURA: Worsening lung opacities left lung base. Right paratracheal and hilar opacities unchanged. No pneumothorax. ADDITIONAL FINDINGS: No significant additional findings. IMPRESSION: 1. Worsening atelectasis left lung base. Little change in right-sided lung opacities. 2. Stable tubes and lines. Signer Name: Martínez Rosenberg II, MD Signed: 10/30/2021 1:29 AM Workstation Name: [id number]
[2021-11-02] MEDS: FAMOTIDINE 20 MG TAB FEEDTUBE SCH ×2 (09:45→21:36)
[2021-11-02 10:09] LABS: ABG Base Excess -4.3 mmol/L (-2.0-3.0); ABG HCO3 23.8 mmol/L (20.0-26.0); ABG Methemoglobin 0.6 % (0.0-1.5); ABG Oxygen Saturation 93.6 % (95.0-99.0); ABG PCO2 61.3 mm Hg; ABG PH 7.208 pH Units (7.350-7.450); ABG PO2 75.9 mm Hg (80.0-90.0)
--- NOTE | 2021-11-02 11:47 | Progress Note ---
Assessment and Plan Patient is a 66-year-old female with unknown past medical history brought into the ED following outside of hospital cardiac arrest thought to be PEA with thought to have downtime of 7 to 9 minutes however details are unclear S/P PEA cardiopulmonary arrest-currently on pressors Acute hypoxic respiratory failure-pulm following Septic shock Aspiration pneumonia Pneumothorax- s/p CT Acute DVT-on Heparin gtt Hypokalemia Transaminitis Echo 10/30/2021-technically difficult study due to body habitus. EF 25 to 30%. Right ventricular systolic function is normal. No pericardial effusion Plan: Patient trending sinus rhythm 90s on monitor no further episodes of A. fib with RVR Due to low blood pressures patient currently requiring pressors. Wean as tolerated No beta-blockers due to soft blood pressure patient requiring pressors No LAYO/ ARB due to elevated creatinine and soft BP Continue anticoagulation for DVT Patient seen in conjunction with Dr. Cueto who agrees with this plan of care 30minutes of critical care time spent in coordination of care of patient - Patient Problems (1) Cardiopulmonary arrest Current Visit: Yes Status: Acute (2) Hypokalemia Current Visit: Yes Status: Acute (3) Transaminitis Current Visit: Yes Status: Acute (4) Aspiration pneumonia Current Visit: Yes Status: Acute (5) Acute hypoxemic respiratory failure Current Visit: Yes Status: Acute (6) Septic shock Current Visit: Yes Status: Acute (7) Toxic metabolic encephalopathy Current Visit: Yes Status: Acute (8) Shock liver Current Visit: Yes Status: Acute Subjective Date of service: 11/02/21 Principal diagnosis: AHRF; Cardiac arrest; R. pneumothorax; pneumonia; AMS; DVT's; SIERRA; Obesity Interval history: Patient remains intubated and sedated Patient patient sinus 90s with some episodes sinus tach into 130s and PVCs Objective Vital Signs Temp Pulse Pulse Resp BP Pulse Ox 11/02/21 10:55 94 11/02/21 10:00 97 H 12 95/50 97 11/02/21 09:45 103 H 12 103/58 96 11/02/21 09:30 108 H 11 L 110/67 96 11/02/21 09:15 99 H 12 99/54 95 11/02/21 09:00 102 H 12 89/53 95 11/02/21 08:45 102 H 12 99/50 95 11/02/21 08:30 103 H 12 95/51 95 11/02/21 08:16 106 H 12 101/50 94 11/02/21 08:15 104 H 101/50 94 11/02/21 08:00 99.8 F H 112 H 12 91/61 96 11/02/21 07:45 112 H 12 91/61 95 11/02/21 07:30 110 H 13 100/55 95 11/02/21 07:15 108 H 12 99/50 95 11/02/21 07:00 111 H 13 102/51 95 11/02/21 06:45 109 H 12 105/54 95 11/02/21 06:30 108 H 12 96/51 94 11/02/21 06:15 110 H 12 97/53 94 11/02/21 06:00 109 H 13 98/45 95 11/02/21 05:45 113 H 12 95/47 92 11/02/21 05:31 117 H 14 73/46 93 11/02/21 05:27 109 H 85/41 91 11/02/21 05:15 108 H 12 85/41 93 11/02/21 05:00 109 H 12 89/48 93 11/02/21 04:45 115 H 13 102/53 92 11/02/21 04:41 114 H 12 96/54 91 11/02/21 04:35 118 H 12 96/54 91 11/02/21 04:30 120 H 12 96/54 92 11/02/21 04:25 121 H 12 98/59 92 11/02/21 04:21 134 H 14 98/59 100 11/02/21 04:15 119 H 14 98/59 94 11/02/21 04:11 113 H 12 98/59 93 11/02/21 04:05 112 H 13 98/59 94 11/02/21 04:00 99.4 F 111 H 12 98/59 95 11/02/21 03:55 111 H 12 98/56 95 11/02/21 03:51 109 H 12 98/56 95 11/02/21 03:45 109 H 12 98/56 95 11/02/21 03:41 108 H 12 99/54 95 11/02/21 03:35 108 H 13 99/54 95 11/02/21 03:30 110 H 16 99/54 95 11/02/21 03:25 116 H 12 97/54 95 02/09/22 03:21 113 H 12 97/54 95 11/02/21 03:15 110 H 12 97/54 95 11/02/21 02:51 112 H 13 103/57 94 11/02/21 02:45 112 H 13 103/57 95 11/02/21 02:30 114 H 12 103/57 95 11/02/21 02:15 120 H 15 103/61 94 11/02/21 02:00 110 H 12 95 11/02/21 01:45 113 H 13 97/56 94 11/02/21 01:30 113 H 14 97/56 94 11/02/21 01:00 113 H 12 104/62 94 11/02/21 00:30 117 H 11 L 118/72 94 11/02/21 00:19 113 H 107/69 94 11/02/21 00:03 116 H 13 107/69 92 11/02/21 00:00 99.6 F 115 H 12 107/69 93 11/01/21 23:30 116 H 11 L 116/73 93 11/01/21 23:01 118 H 11 L 131/77 91 11/01/21 22:30 113 H 12 103/74 92 11/01/21 22:00 114 H 12 127/74 93 11/01/21 21:30 100 H 12 118/69 93 11/01/21 21:00 99 H 11 L 123/61 91 11/01/21 20:49 99 H 121/56 93 11/01/21 20:31 105 H 12 121/56 89 11/01/21 20:00 98.2 F 109 H 13 120/72 92 11/01/21 19:30 106 H 12 103/62 93 11/01/21 19:00 108 H 12 103/65 90 11/01/21 18:31 110 H 12 107/70 90 11/01/21 18:00 108 H 12 113/74 92 11/01/21 17:31 117 H 12 131/82 90 11/01/21 17:00 90 12 94/58 95 11/01/21 16:30 85 12 87/54 95 11/01/21 16:20 80 89/52 90 11/01/21 16:00 99.6 F 85 84 12 89/52 96 02/08/22 15:30 79 20 85/50 96 11/01/21 15:01 91 H 20 99/61 96 11/01/21 14:30 93 H 20 102/70 96 11/01/21 14:01 99 H 20 124/82 97 11/01/21 13:30 75 20 83/54 98 11/01/21 13:00 79 20 93/58 98 11/01/21 12:30 83 20 98/59 97 11/01/21 12:10 107 H 91/47 94 11/01/21 12:00 99.6 F 86 120 H 20 95/59 97 - Physical Examination General: Other (Intubated and sedated) HEENT: Positive: Normocephaly Neck: Positive: trachea midline Cardiac: Positive: Reg Rate and Rhythm Lungs: Positive: Ventilated Respirations Neuro: Positive: Other (Unable to assess due to intubation sedated) Abdomen: Positive: Soft Skin: Negative: Rash, Suspicious Lesions Extremities: Present: upper extr. pulses, edema - Labs and Meds CBC 11/02/21 Range/Units 05:35 WBC 13.5 H (4.5-11.0) K/mm3 RBC 3.60 L (3.65-5.03) M/mm3 Hgb 9.7 L (10.1-14.3) gm/dl Hct 30.9 (30.3-42.9) % Plt Count 158 (140-440) K/mm3 Comprehensive Metabolic Panel 11/02/21 Range/Units 05:35 Sodium 142 (137-145) mmol/L Potassium 5.2 H D (3.6-5.0) mmol/L Chloride 112.6 H (98-107) mmol/L Carbon Dioxide 23 (22-30) mmol/L BUN 32 H (7-17) mg/dL Creatinine 1.1 (0.6-1.2) mg/dL Glucose 152 H (65-100) mg/dL Calcium 8.2 L (8.4-10.2) mg/dL - Imaging and Cardiology Echo: report reviewed - Telemetry EKG Rhythm: Sinus Rhythm - EKG Sinus rhythms and dysrhythmias: sinus rhythm Ventricular dysrhythmias: ventricular premature com - Allied health notes Allied health notes reviewed: nursing
--- NOTE | 2021-11-02 12:50 | Progress Note ---
Assessment and Plan Acute hypoxemic respiratory failure on MVS Cardiac arrest with ROSC Acute DVT Right pneumothorax Shock (septic +/- cardiogenic) Possible aspiration pneumonia SIERRA Altered mental status/acute encephalopathy Elevated serum transaminases, likely shock liver Metabolic acidosis Obesity Leukocytosis Hypokalemia Lactic acidosis - reduce Seroquel dose - IVNS @ 75 ml's/hr X 1 liter - hold Fentanyl - discontinue Gregory - consider Dobutrex - repeat ABG now in am - continue care as below otherwise; - vasopressors for target MAP > 65 mmHg - continue full anticoagulation with IV Heparin re: DVT - continue Daily SAT and SBT assessment as tolerated - continue to wean supplemental oxygen for target O2 sat's > 90% acutely - VAP bundle addressed - continue lung protective strategies - continue bronchodilators with pulmonary hygiene per RT - wean per pulmonary driven protocols otherwise - continue accuchecks with glycemic control per SSI (While critically ill target blood glucose of 140-180 mg/dL; avoid hypoglycemia) - sedation prn for target RASS 0 to -1 - avoid nephrotoxins, renally dose all medications - continue to avoid benzodiazepine's, reduce the possibility of delirium - AB's per ID rec's - prn analgesia per CPOT score - Maintenance of sleep-wake cycle, avoid delirium - continue enteral nutritional support at goal rate as tolerated - G.I. & VTE prophylaxis - PT/OT/ROM exercises - continue mobility protocols for pressure ulcer prophylaxis - Monitor hemodynamics closely - continue other care per attending / other consultants - discharge planning ongoing concurrently COVID SPECIFIC INTERVENTIONS - COVID-19 PCR negative .... Re-evaluate in am & prn CONDITION: CRITICAL PROGNOSIS: GUARDED CODE STATUS: FULL CODE The high probability of a clinically significant, sudden or life-threatening deterioration of the [respiratory, cardiovascular, renal & neurologic] system(s) required my full and direct attention, intervention and personal management. The aggregate critical care time was [37] minutes without overlap. Time includes spent on; [x] Data Review and interpretation [x] Patient assessment and monitoring of vital signs [x] Documentation [x] Medication orders and management Subjective Date of service: 11/02/21 Principal diagnosis: AHRF; Cardiac arrest; R. pneumothorax; pneumonia; AMS; DVT's; SIERRA; Obesity Interval history: Patient is seen today for: Acute hypoxemic respiratory failure; Cardiac arrest with ROSC; Right pneumothorax; pneumonia; AMS; bilateral DVT's; SIERRA; Obesity Seen and examined at bedside; 24hour events reviewed; nursing and respiratory ca re staff consulted; no adverse overnight events reported to me; remains on MVS; sedate and not overbreathing set rate despite respiratory acidosis; no emesis or overt aspiration; afebrile Objective Vital Signs - 12hr 11/02/21 11/02/21 11/02/21 01:00 01:30 01:45 Temperature Pulse Rate 113 H 113 H 113 H Respiratory 12 14 13 Rate Blood Pressure 104/62 97/56 97/56 O2 Sat by Pulse 94 94 94 Oximetry 11/02/21 11/02/21 11/02/21 02:00 02:15 02:30 Temperature Pulse Rate 110 H 120 H 114 H Respiratory 12 15 12 Rate Blood Pressure 103/61 103/57 O2 Sat by Pulse 95 94 95 Oximetry 11/02/21 11/02/21 11/02/21 02:45 02:51 03:15 Temperature Pulse Rate 112 H 112 H 110 H Respiratory 13 13 12 Rate Blood Pressure 103/57 103/57 97/54 O2 Sat by Pulse 95 94 95 Oximetry 11/02/21 11/02/21 11/02/21 03:21 03:25 03:30 Temperature Pulse Rate 113 H 116 H 110 H Respiratory 12 12 16 Rate Blood Pressure 97/54 97/54 99/54 O2 Sat by Pulse 95 95 95 Oximetry 11/02/21 11/02/21 11/02/21 03:35 03:41 03:45 Temperature Pulse Rate 108 H 108 H 109 H Respiratory 13 12 12 Rate Blood Pressure 99/54 99/54 98/56 O2 Sat by Pulse 95 95 95 Oximetry 11/02/21 11/02/21 11/02/21 03:51 03:55 04:00 Temperature 99.4 F Pulse Rate 109 H 111 H 111 H Respiratory 12 12 12 Rate Blood Pressure 98/56 98/56 98/59 O2 Sat by Pulse 95 95 95 Oximetry 11/02/21 11/02/21 11/02/21 04:05 04:11 04:15 Temperature Pulse Rate 112 H 113 H 119 H Respiratory 13 12 14 Rate Blood Pressure 98/59 98/59 98/59 O2 Sat by Pulse 94 93 94 Oximetry 11/02/21 11/02/21 11/02/21 04:21 04:25 04:30 Temperature Pulse Rate 134 H 121 H 120 H Respiratory 14 12 12 Rate Blood Pressure 98/59 98/59 96/54 O2 Sat by Pulse 100 92 92 Oximetry 11/02/21 11/02/21 11/02/21 04:35 04:41 04:45 Temperature Pulse Rate 118 H 114 H 115 H Respiratory 12 12 13 Rate Blood Pressure 96/54 96/54 102/53 O2 Sat by Pulse 91 91 92 Oximetry 11/02/21 11/02/21 11/02/21 05:00 05:15 05:27 Temperature Pulse Rate 109 H 108 H 109 H Respiratory 12 12 Rate Blood Pressure 89/48 85/41 85/41 O2 Sat by Pulse 93 93 91 Oximetry 11/02/21 11/02/21 11/02/21 05:31 05:45 06:00 Temperature Pulse Rate 117 H 113 H 109 H Respiratory 14 12 13 Rate Blood Pressure 73/46 95/47 98/45 O2 Sat by Pulse 93 92 95 Oximetry 11/02/21 11/02/21 11/02/21 06:15 06:30 06:45 Temperature Pulse Rate 110 H 108 H 109 H Respiratory 12 12 12 Rate Blood Pressure 97/53 96/51 105/54 O2 Sat by Pulse 94 94 95 Oximetry 11/02/21 11/02/21 11/02/21 07:00 07:15 07:30 Temperature Pulse Rate 111 H 108 H 110 H Respiratory 13 12 13 Rate Blood Pressure 102/51 99/50 100/55 O2 Sat by Pulse 95 95 95 Oximetry 11/02/21 11/02/21 11/02/21 07:45 08:00 08:15 Temperature 99.8 F H Pulse Rate 112 H 112 H 104 H Respiratory 12 12 Rate Blood Pressure 91/61 91/61 101/50 O2 Sat by Pulse 95 96 94 Oximetry 11/02/21 11/02/21 11/02/21 08:16 08:30 08:45 Temperature Pulse Rate 106 H 103 H 102 H Respiratory 12 12 12 Rate Blood Pressure 101/50 95/51 99/50 O2 Sat by Pulse 94 95 95 Oximetry 11/02/21 11/02/21 11/02/21 09:00 09:15 09:30 Temperature Pulse Rate 102 H 99 H 108 H Respiratory 12 12 11 L Rate Blood Pressure 89/53 99/54 110/67 O2 Sat by Pulse 95 95 96 Oximetry 11/02/21 11/02/21 11/02/21 09:45 10:00 10:16 Temperature Pulse Rate 103 H 97 H 111 H Respiratory 12 12 13 Rate Blood Pressure 103/58 95/50 100/53 O2 Sat by Pulse 96 97 95 Oximetry 11/02/21 11/02/21 11/02/21 10:30 10:45 10:55 Temperature Pulse Rate 114 H 106 H Respiratory 12 12 Rate Blood Pressure 98/57 91/52 O2 Sat by Pulse 96 96 94 Oximetry 11/02/21 11/02/21 11/02/21 11:00 11:15 11:30 Temperature Pulse Rate 103 H 105 H 106 H Respiratory 14 14 14 Rate Blood Pressure 95/54 94/53 93/54 O2 Sat by Pulse 96 96 96 Oximetry 11/02/21 11/02/21 11:45 12:00 Temperature Pulse Rate 104 H 110 H Respiratory 14 18 Rate Blood Pressure 100/60 87/56 O2 Sat by Pulse 95 92 Oximetry Constitutional: no acute distress, other (elderly obese female riding set rate on MVS) Eyes: non-icteric ENT: oropharynx moist, other (ETT 23 cm KRYSTAL) Neck: supple, no lymphadenopathy, no JVD Effort: normal Ascultation: Bilateral: diminished breath sounds, rhonchi Percussion: Bilateral: not dull Cardiovascular: regular rate and rhythm Gastrointestinal: normoactive bowel sounds, soft, non-tender, non-distended (protuberant) Integumentary: normal Extremities: no cyanosis, no edema, pulses normal, no ischemia or petechiae Neurologic: non-focal exam (grossly), pupils equal and round, motor strength normal and Psychiatric: mood appropriate, affect normal CBC and BMP: 11/03/21 06:00 11/03/21 06:00 ABG, PT/INR, D-dimer: ABG ABG pH 7.208 pH Units (7.350-7.450) L 11/02/21 09:35 ABG pCO2 61.3 mm Hg 11/02/21 09:35 ABG pO2 75.9 mm Hg (80.0-90.0) L 11/02/21 09:35 ABG O2 Saturation 93.6 % (95.0-99.0) L 11/02/21 09:35 PT/INR, D-dimer PT 17.2 Sec. (12.2-14.9) H 10/30/21 16:30 INR 1.27 (0.87-1.13) H 10/30/21 16:30 D-Dimer > 36836 ng/mlDDU (0-234) H 10/30/21 Unknown Abnormal lab findings: Abnormal Labs 10/29/21 10/29/21 10/29/21 15:10 15:10 15:10 WBC 27.8 H RBC Hgb Hct MCH 27 L RDW Plt Count Lymph % (Auto) Lymph # (Auto) [place] # (Auto) Seg Neutrophils % Seg Neuts % (Manual) 78.0 H Lymphocytes % (Manual) 10.0 L Seg Neutrophils # Seg Neutrophils # Man 21.7 H Monocytes # (Manual) 1.4 H PT INR APTT D-Dimer Heparin Anti-Xa Level ABG pH ABG pO2 ABG O2 Saturation ABG Base Excess ABG Hemoglobin Oxyhemoglobin Sodium Potassium Chloride Carbon Dioxide BUN Creatinine Glucose POC Glucose Hemoglobin A1c Lactic Acid 6.80 H* Calcium Magnesium Ferritin AST ALT Alkaline Phosphatase Lactate Dehydrogenase Troponin T 0.089 H C-Reactive Protein Total Protein Albumin LDL Cholesterol Direct Urine Creatinine Salicylates Acetaminophen 10/29/21 10/29/21 10/29/21 15:10 15:10 15:10 WBC RBC Hgb Hct MCH RDW Plt Count Lymph % (Auto) Lymph # (Auto) [place] # (Auto) Seg Neutrophils % Seg Neuts % (Manual) Lymphocytes % (Manual) Seg Neutrophils # Seg Neutrophils # Man Monocytes # (Manual) PT INR APTT D-Dimer Heparin Anti-Xa Level ABG pH ABG pO2 ABG O2 Saturation ABG Base Excess ABG Hemoglobin Oxyhemoglobin Sodium 136 L Potassium 2.8 L* Chloride 93.4 L Carbon Dioxide 20 L BUN Creatinine Glucose 330 H POC Glucose Hemoglobin A1c Lactic Acid Calcium Magnesium Ferritin AST 1013 H ALT 1289 H Alkaline Phosphatase 246 H Lactate Dehydrogenase Troponin T C-Reactive Protein Total Protein Albumin LDL Cholesterol Direct Urine Creatinine Salicylates < 0.3 L Acetaminophen 5.0 L 10/29/21 10/29/21 10/29/21 15:11 16:01 19:29 WBC RBC Hgb Hct MCH RDW Plt Count Lymph % (Auto) Lymph # (Auto) [place] # (Auto) Seg Neutrophils % Seg Neuts % (Manual) Lymphocytes % (Manual) Seg Neutrophils # Seg Neutrophils # Man Monocytes # (Manual) PT INR APTT D-Dimer Heparin Anti-Xa Level ABG pH 7.307 L ABG pO2 64.1 L ABG O2 Saturation 90.8 L ABG Base Excess -2.9 L ABG Hemoglobin Oxyhemoglobin 89.3 L Sodium Potassium Chloride Carbon Dioxide BUN Creatinine Glucose POC Glucose Hemoglobin A1c Lactic Acid 2.60 H* Calcium Magnesium 2.90 H Ferritin AST ALT Alkaline Phosphatase Lactate Dehydrogenase Troponin T C-Reactive Protein Total Protein Albumin LDL Cholesterol Direct Urine Creatinine Salicylates Acetaminophen 10/29/21 10/29/21 10/30/21 19:40 22:34 04:30 WBC 16.2 H RBC Hgb Hct MCH 26 L RDW 15.5 H Plt Count Lymph % (Auto) 6.2 L Lymph # (Auto) 1.0 L [place] # (Auto) 0.9 H Seg Neutrophils % 88.1 H Seg Neuts % (Manual) Lymphocytes % (Manual) Seg Neutrophils # 14.2 H Seg Neutrophils # Man Monocytes # (Manual) PT INR APTT D-Dimer Heparin Anti-Xa Level ABG pH ABG pO2 ABG O2 Saturation ABG Base Excess ABG Hemoglobin Oxyhemoglobin Sodium Potassium Chloride Carbon Dioxide BUN Creatinine Glucose POC Glucose Hemoglobin A1c Lactic Acid Calcium Magnesium Ferritin AST ALT Alkaline Phosphatase Lactate Dehydrogenase Troponin T 1.950 H* D 1.150 H* D C-Reactive Protein Total Protein Albumin LDL Cholesterol Direct 43 L Urine Creatinine Salicylates Acetaminophen 10/30/21 10/30/21 10/30/21 04:30 04:35 05:45 WBC RBC Hgb Hct MCH RDW Plt Count Lymph % (Auto) Lymph # (Auto) [place] # (Auto) Seg Neutrophils % Seg Neuts % (Manual) Lymphocytes % (Manual) Seg Neutrophils # Seg Neutrophils # Man Monocytes # (Manual) PT INR APTT D-Dimer Heparin Anti-Xa Level ABG pH ABG pO2 69.5 L ABG O2 Saturation ABG Base Excess -2.7 L ABG Hemoglobin Oxyhemoglobin 94.7 L Sodium Potassium Chloride Carbon Dioxide 21 L BUN Creatinine Glucose 159 H POC Glucose 151 H Hemoglobin A1c Lactic Acid Calcium 7.9 L D Magnesium Ferritin AST 461 H ALT 686 H Alkaline Phosphatase 130 H Lactate Dehydrogenase Troponin T C-Reactive Protein Total Protein 5.6 L D Albumin 3.2 L LDL Cholesterol Direct Urine Creatinine Salicylates Acetaminophen 10/30/21 10/30/2110/30/22 11:24 15:59 16:30 WBC RBC Hgb Hct MCH RDW Plt Count Lymph % (Auto) Lymph # (Auto) [place] # (Auto) Seg Neutrophils % Seg Neuts % (Manual) Lymphocytes % (Manual) Seg Neutrophils # Seg Neutrophils # Man Monocytes # (Manual) PT 17.2 H INR 1.27 H APTT 44.4 H D-Dimer Heparin Anti-Xa Level ABG pH ABG pO2 ABG O2 Saturation ABG Base Excess ABG Hemoglobin Oxyhemoglobin Sodium Potassium Chloride Carbon Dioxide BUN Creatinine Glucose POC Glucose 153 H 109 H Hemoglobin A1c Lactic Acid Calcium Magnesium Ferritin AST ALT Alkaline Phosphatase Lactate Dehydrogenase Troponin T C-Reactive Protein Total Protein Albumin LDL Cholesterol Direct Urine Creatinine Salicylates Acetaminophen 10/30/21 10/30/21 10/30/21 23:00 Unknown Unknown WBC RBC Hgb Hct MCH RDW Plt Count Lymph % (Auto) Lymph # (Auto) [place] # (Auto) Seg Neutrophils % Seg Neuts % (Manual) Lymphocytes % (Manual) Seg Neutrophils # Seg Neutrophils # Man Monocytes # (Manual) PT INR APTT D-Dimer > 27644 H Heparin Anti-Xa Level 0.82 H ABG pH ABG pO2 ABG O2 Saturation ABG Base Excess ABG Hemoglobin Oxyhemoglobin Sodium Potassium Chloride Carbon Dioxide BUN Creatinine Glucose POC Glucose Hemoglobin A1c Lactic Acid Calcium Magnesium Ferritin 208.4 H AST ALT Alkaline Phosphatase Lactate Dehydrogenase Troponin T C-Reactive Protein Total Protein Albumin LDL Cholesterol Direct Urine Creatinine Salicylates Acetaminophen 10/30/21 10/31/21 10/31/21 Unknown 04:30 04:30 WBC 14.4 H RBC Hgb Hct MCH 26 L RDW Plt Count Lymph % (Auto) Lymph # (Auto) [place] # (Auto) Seg Neutrophils % Seg Neuts % (Manual) Lymphocytes % (Manual) Seg Neutrophils # Seg Neutrophils # Man Monocytes # (Manual) PT INR APTT D-Dimer Heparin Anti-Xa Level ABG pH ABG pO2 ABG O2 Saturation ABG Base Excess ABG Hemoglobin Oxyhemoglobin Sodium Potassium 3.5 L Chloride 107.5 H Carbon Dioxide 20 L BUN 28 H Creatinine 1.7 H Glucose 113 H POC Glucose Hemoglobin A1c Lactic Acid Calcium 7.9 L Magnesium Ferritin AST ALT Alkaline Phosphatase Lactate Dehydrogenase 469 H Troponin T C-Reactive Protein 13.40 H Total Protein Albumin LDL Cholesterol Direct Urine Creatinine Salicylates Acetaminophen 10/31/21 10/31/21 10/31/21 04:30 05:11 15:30 WBC RBC Hgb Hct MCH RDW Plt Count Lymph % (Auto) Lymph # (Auto) [place] # (Auto) Seg Neutrophils % Seg Neuts % (Manual) Lymphocytes % (Manual) Seg Neutrophils # Seg Neutrophils # Man Monocytes # (Manual) PT INR APTT D-Dimer Heparin Anti-Xa Level ABG pH 7.222 L ABG pO2 61.5 L ABG O2 Saturation 86.2 L ABG Base Excess -6.3 L ABG Hemoglobin 11.2 L Oxyhemoglobin 84.5 L Sodium Potassium Chloride Carbon Dioxide BUN Creatinine Glucose POC Glucose 106 H Hemoglobin A1c 6.7 H Lactic Acid Calcium Magnesium Ferritin AST ALT Alkaline Phosphatase Lactate Dehydrogenase Troponin T C-Reactive Protein Total Protein Albumin LDL Cholesterol Direct Urine Creatinine Salicylates Acetaminophen 10/31/21 10/31/21 10/31/21 16:07 16:35 17:45 WBC RBC Hgb Hct MCH RDW Plt Count Lymph % (Auto) Lymph # (Auto) [place] # (Auto) Seg Neutrophils % Seg Neuts % (Manual) Lymphocytes % (Manual) Seg Neutrophils # Seg Neutrophils # Man Monocytes # (Manual) PT INR APTT D-Dimer Heparin Anti-Xa Level ABG pH 7.267 L ABG pO2 58.3 L ABG O2 Saturation 88.3 L ABG Base Excess -5.9 L ABG Hemoglobin 10.1 L Oxyhemoglobin 86.5 L Sodium Potassium Chloride Carbon Dioxide BUN Creatinine Glucose POC Glucose 115 H Hemoglobin A1c Lactic Acid Calcium Magnesium Ferritin AST ALT Alkaline Phosphatase Lactate Dehydrogenase Troponin T C-Reactive Protein Total Protein Albumin LDL Cholesterol Direct Urine Creatinine 383.6 H Salicylates Acetaminophen 11/01/21 11/01/21 11/01/21 00:06 05:08 06:00 WBC 12.6 H RBC 3.43 L Hgb 8.9 L Hct 28.7 L MCH 26 L RDW 15.7 H Plt Count 130 L Lymph % (Auto) Lymph # (Auto) [place] # (Auto) Seg Neutrophils % Seg Neuts % (Manual) Lymphocytes % (Manual) Seg Neutrophils # Seg Neutrophils # Man Monocytes # (Manual) PT INR APTT D-Dimer Heparin Anti-Xa Level ABG pH ABG pO2 ABG O2 Saturation ABG Base Excess ABG Hemoglobin Oxyhemoglobin Sodium Potassium Chloride Carbon Dioxide BUN Creatinine Glucose POC Glucose 114 H 120 H Hemoglobin A1c Lactic Acid Calcium Magnesium Ferritin AST ALT Alkaline Phosphatase Lactate Dehydrogenase Troponin T C-Reactive Protein Total Protein Albumin LDL Cholesterol Direct Urine Creatinine Salicylates Acetaminophen 11/01/21 11/01/21 11/01/21 06:00 11:43 14:00 WBC RBC Hgb Hct MCH RDW Plt Count Lymph % (Auto) Lymph # (Auto) [place] # (Auto) Seg Neutrophils % Seg Neuts % (Manual) Lymphocytes % (Manual) Seg Neutrophils # Seg Neutrophils # Man Monocytes # (Manual) PT INR APTT D-Dimer Heparin Anti-Xa Level ABG pH 7.349 L ABG pO2 75.6 L ABG O2 Saturation ABG Base Excess -3.9 L ABG Hemoglobin 9.8 L Oxyhemoglobin 93.5 L Sodium Potassium Chloride 114.1 H Carbon Dioxide 20 L BUN 33 H Creatinine Glucose 131 H POC Glucose 151 H Hemoglobin A1c Lactic Acid Calcium 7.7 L Magnesium Ferritin AST 79 H ALT 259 H Alkaline Phosphatase Lactate Dehydrogenase Troponin T C-Reactive Protein Total Protein 5.5 L Albumin 2.7 L LDL Cholesterol Direct Urine Creatinine Salicylates Acetaminophen 11/01/21 11/01/21 11/02/21 16:45 22:55 05:12 WBC RBC Hgb Hct MCH RDW Plt Count Lymph % (Auto) Lymph # (Auto) [place] # (Auto) Seg Neutrophils % Seg Neuts % (Manual) Lymphocytes % (Manual) Seg Neutrophils # Seg Neutrophils # Man Monocytes # (Manual) PT INR APTT D-Dimer Heparin Anti-Xa Level ABG pH ABG pO2 ABG O2 Saturation ABG Base Excess ABG Hemoglobin Oxyhemoglobin Sodium Potassium Chloride Carbon Dioxide BUN Creatinine Glucose POC Glucose 119 H 129 H 140 H Hemoglobin A1c Lactic Acid Calcium Magnesium Ferritin AST ALT Alkaline Phosphatase Lactate Dehydrogenase Troponin T C-Reactive Protein Total Protein Albumin LDL Cholesterol Direct Urine Creatinine Salicylates Acetaminophen 11/02/21 11/02/21 11/02/21 05:35 05:35 09:35 WBC 13.5 H RBC 3.60 L Hgb 9.7 L Hct MCH 27 L RDW 15.7 H Plt Count Lymph % (Auto) Lymph # (Auto) [place] # (Auto) Seg Neutrophils % Seg Neuts % (Manual) Lymphocytes % (Manual) Seg Neutrophils # Seg Neutrophils # Man Monocytes # (Manual) PT INR APTT D-Dimer Heparin Anti-Xa Level ABG pH 7.208 L ABG pO2 75.9 L ABG O2 Saturation 93.6 L ABG Base Excess -4.3 L ABG Hemoglobin 9.1 L Oxyhemoglobin 91.6 L Sodium Potassium 5.2 H D Chloride 112.6 H Carbon Dioxide BUN 32 H Creatinine Glucose 152 H POC Glucose Hemoglobin A1c Lactic Acid Calcium 8.2 L Magnesium 2.70 H Ferritin AST ALT Alkaline Phosphatase Lactate Dehydrogenase Troponin T C-Reactive Protein Total Protein Albumin LDL Cholesterol Direct Urine Creatinine Salicylates Acetaminophen 11/02/21 11:44 WBC RBC Hgb Hct MCH RDW Plt Count Lymph % (Auto) Lymph # (Auto) [place] # (Auto) Seg Neutrophils % Seg Neuts % (Manual) Lymphocytes % (Manual) Seg Neutrophils # Seg Neutrophils # Man Monocytes # (Manual) PT INR APTT D-Dimer Heparin Anti-Xa Level ABG pH ABG pO2 ABG O2 Saturation ABG Base Excess ABG Hemoglobin Oxyhemoglobin Sodium Potassium Chloride Carbon Dioxide BUN Creatinine Glucose POC Glucose 173 H Hemoglobin A1c Lactic Acid Calcium Magnesium Ferritin AST ALT Alkaline Phosphatase Lactate Dehydrogenase Troponin T C-Reactive Protein Total Protein Albumin LDL Cholesterol Direct Urine Creatinine Salicylates Acetaminophen Chest x-ray: image reviewed (low lung volumes; stable infiltrates) Allied health notes reviewed: nursing
--- NOTE | 2021-11-02 13:12 | Progress Note ---
<LEONORSHANTE ColemanUmair - Last Filed: 11/02/21 13:19> Assessment and Plan Assessment and plan: This is a 66-year-old female with past medical history of HTN and Obesity admitted for septic shock, s/p cardiac arrest with ROSC in the field now intubated and on ventilatory support Neuro: Acute Metabolic encephalopathy -Avoid delirium -Reorientation as needed -Sedated with fentanyl -weaned off today to assist with hypercarbia -RASS goal 0 to -1 -As needed analgesia and haldol -Seroquel started 11/01 -Maintain sleep-wake cycle -CT head no acute focal parenchymal lesion in the brain Cardiac: S/p cardiac arrest, HFrEF, hypotension, h/o htn -Outside hospital cardiac arrest with ROSC -Cardiology consulted, appreciate recommendations -vasopressor support with levophed -map goal >65 -Echocardiogram shows left ventricular systolic function severely decreased, LVEF 25 to 30%, no pericardial effusion -proBNP 5622 -BP monitoring per protocol -hold home antihtn regimen Respiratory: Acute hypoxic/hypercapnic respiratory failure, right pneumothorax -CCM consulted, appreciate recommendations -A.m. vent settings: Assist-control rate 12, tidal volume 500, PEEP 8, FiO2 40% -See RT notes for titration -increase in RR -AM CXR and ABG noted -VAP bundle -SPO2 monitoring -Right chest tube to wall suction -Past 24 hours drainage: 118 mL GI: Protein calorie malnutrion, transaminitis likely shocked liver -24 hours +3039 mL -PPI -NTR consulted for tube feedings -Trend LFTs : Acute kidney injury likely secondary to vasomotor nephropathy, hyperkalemia -Cr increased to 1.7 -Strict intake and output -Renally dose medications -Avoid nephrotoxic medications -Daily weights -FWF -Kionex x1 -Trend BMP -FeNa 0.05 indicated pre-renal -Consider nephrology consult and renal ultrasound if worsen -s/p MIVF for 2 L per [facility] ID: Septic shock -COVID-19 PCR negative -Antibiotic therapy with Rocephin and azithromycin () -Levophed gtt for hypotension -Follow-up culture data -Monitor WBC and temperature curve -Repeat [place] Endo: Hyperglycemia -Avoid hypoglycemia -Hbg A1C 6.7 -SSI -Accu-Cheks q. 6 Heme: Acute DVT in the left posterior tibial vein and bilateral peroneal veins, Leukocytosis -D-dimer greater than 10,000 -CTA chest with no evidence of PE -Bilateral lower extremity ultrasound positive for DVT -Heparin gtt -Trend CBC -SCDs to BLE while in bed -Transfuse hemoglobin less than 7 -Monitor for signs of bleeding The high probability of a clinically significant, sudden or life threatening deterioration of the [multi] system(s) required my full and direct attention, intervention and personal management. The aggregate critical care time was [60] minutes. This time is in addition to time spent performing reported procedures but includes the following: [x] Data Review and interpretation [x] Patient assessment and monitoring of vital signs [x] Documentation [x] Medication orders and management Disposition Plan: icu Total Time Spent with Patient (Minutes): 60 History Interval history: This is a 66-year-old female with HTN and obesity who presented to the hospital on 10/29 via EMS with s/p cardiac arrest with CPR initiated by bystanders and upon EMS arrival a David airway was placed and ACLS was initiated. Patient had ROSC after 5-7 minutes and was started on epinephrine in route for hemodynamic support. Upon arrival to the emergency department patient GCS was noted to be 3 and she was biting the endotracheal tube with dilated pupils and copious vomitus and gastric secretions in the oropharynx/mouth/neck. David airway was removed and patient was intubated in the emergency department. Patient was admitted to the hospitalist service s/p cardiac arrest on sepsis and pneumonia protocol with consults to [facility]. Cardiology was consulted upon arrival to ICU. Hospital Course to Date: 10/30: Intubated and sedated, on fentanyl gtt. Open eyes spontaneously but does not follow any commands. On vasopressors, titrate as tolerated for MAP above 65. Patient febrile overnight, continue empiric IV Abx, culture data and COVID PCR pending. Patient is also s/p CT placement due to spontaneous pneumothorax. 2D echo is pending and Cardiology is consulted. 10/31: Patient remains intubated and following commands. Levophed drip stopped and potassium repleted. Patient started on tube feeding. Remains in soft bilateral restraints. 11/01: RN noted ST changes on BSM and 12 lead EKG obtained which showed ST. Given Ativan 1mg for agitation as she is maxed on fentanyl drip and IV push fentanyl did not seem to help. Patient was started on CPAP this morning by RT but remained on fentanyl drip and was having periods of apnea. Plan was to retry CPAP again in the p.m. with sedation off. 11/02: Rate increased r/t hypercapnea on ABG, sedation reduced. Given kionex for hyperkalemia and was started on levophed overnight for hypotension. Hospitalist Physical - Constitutional Vitals: Temp Pulse Resp BP Pulse Ox 99.8 F H 110 H 18 87/56 92 11/02/21 08:00 11/02/21 12:00 11/02/21 12:00 11/02/21 12:00 11/02/21 12:00 General appearance: Present: no acute distress, obese, other (Intubated and Sedated) - EENT Eyes: Present: PERRL, EOM intact ENT: clear oral mucosa, dentition normal - Neck Neck: Present: normal ROM - Respiratory Respiratory effort: normal Respiratory: bilateral: diminished - Cardiovascular Rhythm: regular Heart Sounds: Present: S1 & S2. Absent: systolic murmur, diastolic murmur - Extremities Extremities: no ischemia, pulses intact, pulses symmetrical, No edema, normal temperature, normal color Peripheral Pulses: within normal limits - Abdominal General gastrointestinal: soft, non-tender, non-distended, normal bowel sounds - Integumentary Integumentary: Present: warm, dry - Psychiatric Psychiatric: other (sedated) - Neurologic Neurologic: other (sedated, intact cough/gag) - Allied Health Allied health notes reviewed: nursing, RT, social work HEART Score - HEART Score Troponin: Troponin T 1.150 ng/mL (0.00-0.029) H* D 10/29/21 22:34 Results - Labs CBC & Chem 7: 11/02/21 05:35 11/02/21 05:35 Labs: Laboratory Last Values WBC 13.5 K/mm3 (4.5-11.0) H 11/02/21 05:35 RBC 3.60 M/mm3 (3.65-5.03) L 11/02/21 05:35 Hgb 9.7 gm/dl (10.1-14.3) L 11/02/21 05:35 Hct 30.9 % (30.3-42.9) 11/02/21 05:35 MCV 86 fl (79-97) 11/02/21 05:35 MCH 27 pg (28-32) L 11/02/21 05:35 MCHC 31 % (30-34) 11/02/21 05:35 RDW 15.7 % (13.2-15.2) H 11/02/21 05:35 Plt Count 158 K/mm3 (140-440) 11/02/21 05:35 Lymph % (Auto) 6.2 % (13.4-35.0) L 10/30/21 04:30 [place] % (Auto) 5.5 % (0.0-7.3) 10/30/21 04:30 Eos % (Auto) 0.1 % (0.0-4.3) 10/30/21 04:30 Baso % (Auto) 0.1 % (0.0-1.8) 10/30/21 04:30 Lymph # (Auto) 1.0 K/mm3 (1.2-5.4) L 10/30/21 04:30 [place] # (Auto) 0.9 K/mm3 (0.0-0.8) H 10/30/21 04:30 Eos # (Auto) 0.0 K/mm3 (0.0-0.4) 10/30/21 04:30 Baso # (Auto) 0.0 K/mm3 (0.0-0.1) 10/30/21 04:30 Add Manual Diff Complete 10/29/21 15:10 Total Counted 100 10/29/21 15:10 Seg Neutrophils % 88.1 % (40.0-70.0) H 10/30/21 04:30 Seg Neuts % (Manual) 78.0 % (40.0-70.0) H 10/29/21 15:10 Band Neutrophils % 5.0 % 10/29/21 15:10 Lymphocytes % (Manual) 10.0 % (13.4-35.0) L 10/29/21 15:10 Reactive Lymphs % (Man) 0 % 10/29/21 15:10 Monocytes % (Manual) 5.0 % (0.0-7.3) 10/29/21 15:10 Eosinophils % (Manual) 0 % (0.0-4.3) 10/29/21 15:10 Basophils % (Manual) 0 % (0.0-1.8) 10/29/21 15:10 Metamyelocytes % 2.0 % 10/29/21 15:10 Myelocytes % 0 % 10/29/21 15:10 Promyelocytes % 0 % 10/29/21 15:10 Blast Cells % 0 % 10/29/21 15:10 Nucleated RBC % Not Reportable 10/29/21 15:10 Seg Neutrophils # 14.2 K/mm3 (1.8-7.7) H 10/30/21 04:30 Seg Neutrophils # Man 21.7 K/mm3 (1.8-7.7) H 10/29/21 15:10 Band Neutrophils # 1.4 K/mm3 10/29/21 15:10 Lymphocytes # (Manual) 2.8 K/mm3 (1.2-5.4) 10/29/21 15:10 Abs React Lymphs (Man) 0.0 K/mm3 10/29/21 15:10 Monocytes # (Manual) 1.4 K/mm3 (0.0-0.8) H 10/29/21 15:10 Eosinophils # (Manual) 0.0 K/mm3 (0.0-0.4) 10/29/21 15:10 Basophils # (Manual) 0.0 K/mm3 (0.0-0.1) 10/29/21 15:10 Metamyelocytes # 0.6 K/mm3 10/29/21 15:10 Myelocytes # 0.0 K/mm3 10/29/21 15:10 Promyelocytes # 0.0 K/mm3 10/29/21 15:10 Blast Cells # 0.0 K/mm3 10/29/21 15:10 WBC Morphology Not Reportable 10/29/21 15:10 Hypersegmented Neuts Not Reportable 10/29/21 15:10 Hyposegmented Neuts Not Reportable 10/29/21 15:10 Hypogranular Neuts Not Reportable 10/29/21 15:10 Smudge Cells Not Reportable 10/29/21 15:10 Toxic Granulation Not Reportable 10/29/21 15:10 Toxic Vacuolation Not Reportable 10/29/21 15:10 Dohle Bodies Not Reportable 10/29/21 15:10 Pelger-Huet Anomaly Not Reportable 10/29/21 15:10 Manny Rods Not Reportable 10/29/21 15:10 Platelet Estimate Consistent w auto 10/29/21 15:10 Clumped Platelets Not Reportable 10/29/21 15:10 Plt Clumps, EDTA Not Reportable 10/29/21 15:10 Large Platelets Not Reportable 10/29/21 15:10 Giant Platelets Not Reportable 10/29/21 15:10 Platelet Satelliting Not Reportable 10/29/21 15:10 Plt Morphology Comment Not Reportable 10/29/21 15:10 RBC Morphology Not Reportable 10/29/21 15:10 Dimorphic RBCs Not Reportable 10/29/21 15:10 Polychromasia Not Reportable 10/29/21 15:10 Hypochromasia Not Reportable 10/29/21 15:10 Poikilocytosis 1+ 10/29/21 15:10 Anisocytosis Not Reportable 10/29/21 15:10 Microcytosis 1+ 10/29/21 15:10 Macrocytosis Not Reportable 10/29/21 15:10 Spherocytes Not Reportable 10/29/21 15:10 Pappenheimer Bodies Not Reportable 10/29/21 15:10 Sickle Cells Not Reportable 10/29/21 15:10 Target Cells Not Reportable 10/29/21 15:10 Tear Drop Cells Not Reportable 10/29/21 15:10 Ovalocytes Few 10/29/21 15:10 Helmet Cells Not Reportable 10/29/21 15:10 Maradiaga-Crofton Bodies Not Reportable 10/29/21 15:10 [place]a Rings Not Reportable 10/29/21 15:10 [place] Cells Not Reportable 10/29/21 15:10 Bite Cells Not Reportable 10/29/21 15:10 Crenated Cell Not Reportable 10/29/21 15:10 Elliptocytes Few 10/29/21 15:10 Acanthocytes (Spur) Not Reportable 10/29/21 15:10 Rouleaux Not Reportable 10/29/21 15:10 Hemoglobin C Crystals Not Reportable 10/29/21 15:10 Schistocytes Not Reportable 10/29/21 15:10 Malaria parasites Not Reportable 10/29/21 15:10 Magdy Bodies Not Reportable 10/29/21 15:10 Hem Pathologist Commnt No 10/29/21 15:10 PT 17.2 Sec. (12.2-14.9) H 10/30/21 16:30 INR 1.27 (0.87-1.13) H 10/30/21 16:30 APTT 44.4 Sec. (24.2-36.6) H 10/30/21 16:30 D-Dimer > 24638 ng/mlDDU (0-234) H 10/30/21 Unknown Heparin Anti-Xa Level 0.39 U.I./ml (0.3-0.7) 11/02/21 05:35 ABG pH 7.208 pH Units (7.350-7.450) L 11/02/21 09:35 ABG pCO2 61.3 mm Hg 11/02/21 09:35 ABG pO2 75.9 mm Hg (80.0-90.0) L 11/02/21 09:35 ABG HCO3 23.8 mmol/L (20.0-26.0) 11/02/21 09:35 ABG O2 Saturation 93.6 % (95.0-99.0) L 11/02/21 09:35 ABG O2 Content 11.8 (0.0-44) 11/02/21 09:35 ABG Base Excess -4.3 mmol/L (-2.0-3.0) L 11/02/21 09:35 ABG Hemoglobin 9.1 gm/dl (12.0-16.0) L 11/02/21 09:35 ABG Carboxyhemoglobin 1.5 % (0.0-5.0) 11/02/21 09:35 ABG Methemoglobin 0.6 % (0.0-1.5) 11/02/21 09:35 Oxyhemoglobin 91.6 % (95.0-99.0) L 11/02/21 09:35 FiO2 40 % 11/02/21 09:35 Sodium 142 mmol/L (137-145) 11/02/21 05:35 Potassium 5.2 mmol/L (3.6-5.0) H D 11/02/21 05:35 Chloride 112.6 mmol/L (98-107) H 11/02/21 05:35 Carbon Dioxide 23 mmol/L (22-30) 11/02/21 05:35 Anion Gap 12 mmol/L 11/02/21 05:35 BUN 32 mg/dL (7-17) H 11/02/21 05:35 Creatinine 1.1 mg/dL (0.6-1.2) 11/02/21 05:35 Estimated GFR 60 ml/min 11/02/21 05:35 BUN/Creatinine Ratio 29 % 11/02/21 05:35 Glucose 152 mg/dL (65-100) H 11/02/21 05:35 POC Glucose 173 mg/dL (70-105) H 11/02/21 11:44 Hemoglobin A1c 6.7 % (4-6) H 10/31/21 04:30 Lactic Acid 0.70 mmol/L (0.7-2.0) 10/31/21 15:45 Calcium 8.2 mg/dL (8.4-10.2) L 11/02/21 05:35 Phosphorus 4.40 mg/dL (2.5-4.5) 11/02/21 05:35 Magnesium 2.70 mg/dL (1.7-2.3) H 11/02/21 05:35 Ferritin 208.4 ng/mL (10.0-200.0) H 10/30/21 Unknown Total Bilirubin 0.30 mg/dL (0.1-1.2) 11/01/21 06:00 AST 79 units/L (5-40) H 11/01/21 06:00 ALT 259 units/L (7-56) H 11/01/21 06:00 Alkaline Phosphatase 113 units/L (35-129) 11/01/21 06:00 Ammonia 31.0 umol/L (25-60) 10/29/21 15:10 Lactate Dehydrogenase 469 units/L (91-180) H 10/30/21 Unknown Troponin T 1.150 ng/mL (0.00-0.029) H* D 10/29/21 22:34 C-Reactive Protein 13.40 mg/dL (0.00-1.30) H 10/30/21 Unknown Total Protein 5.5 g/dL (6.3-8.2) L 11/01/21 06:00 Albumin 2.7 g/dL (3.9-5) L 11/01/21 06:00 Albumin/Globulin Ratio 1.0 % 11/01/21 06:00 Triglycerides 68 mg/dL (2-149) 10/29/21 19:40 Cholesterol 98 mg/dL (50-199) 10/29/21 19:40 LDL Cholesterol Direct 43 mg/dL (50-130) L 10/29/21 19:40 HDL Cholesterol 50 mg/dL (40-59) 10/29/21 19:40 Cholesterol/HDL Ratio 1.96 % 10/29/21 19:40 Procalcitonin 61.95 ng/mL (<0.15) 10/30/21 Unknown TSH 3.080 mlU/mL (0.270-4.200) 10/29/21 15:10 Urine Color Straw (Yellow) 10/29/21 18:15 Urine Turbidity Clear (Clear) 10/29/21 18:15 Urine pH 7.0 (5.0-7.0) 10/29/21 18:15 Ur Specific [place] 1.018 (1.003-1.030) 10/29/21 18:15 Urine Protein 100 mg/dl mg/dL (Negative) 10/29/21 18:15 Urine Glucose (UA) 150 mg/dL (Negative) 10/29/21 18:15 Urine Ketones Neg mg/dL (Negative) 10/29/21 18:15 Urine Blood Mod (Negative) 10/29/21 18:15 Urine Nitrite Neg (Negative) 10/29/21 18:15 Urine Bilirubin Neg (Negative) 10/29/21 18:15 Urine Urobilinogen < 2.0 mg/dL (<2.0) 10/29/21 18:15 Ur Leukocyte Esterase Neg (Negative) 10/29/21 18:15 Urine WBC (Auto) 5.0 /HPF (0.0-6.0) 10/29/21 18:15 Urine RBC (Auto) 2.0 /HPF (0.0-6.0) 10/29/21 18:15 U Epithel Cells (Auto) < 1.0 /HPF (0-13.0) 10/29/21 18:15 Urine Mucus Few /HPF 10/29/21 18:15 Urine Creatinine 383.6 mg/dL (0.1-20.0) H 10/31/21 16:35 Urine Sodium 16 mmol/L 10/31/21 16:35 Salicylates < 0.3 mg/dL (2.8-20.0) L 10/29/21 15:10 Urine Opiates Screen Negative 10/29/21 18:15 Urine Methadone Screen Negative 10/29/21 18:15 Acetaminophen 5.0 ug/mL (10.0-30.0) L 10/29/21 15:10 Ur Barbiturates Screen Negative 10/29/21 18:15 Ur Phencyclidine Scrn Negative 10/29/21 18:15 Ur Amphetamines Screen Negative 10/29/21 18:15 U Benzodiazepines Scrn Negative 10/29/21 18:15 Urine Cocaine Screen Negative 10/29/21 18:15 U Marijuana (THC) Screen Negative 10/29/21 18:15 Drugs of Abuse Note Disclamer 10/29/21 18:15 Plasma/Serum Alcohol < 0.01 % (0-0.07) 10/29/21 15:10 Coronavirus (PCR) Negative (Negative) 10/30/21 Unknown Blood Type O POSITIVE 10/29/21 15:10 Antibody Screen Negative 10/29/21 15:10 Microbiology: Microbiology 10/29/21 Unknown Peripheral/Venous Blood Culture - Preliminary NO GROWTH AFTER 72 HOURS 10/29/21 Unknown Peripheral/Venous Blood Culture - Preliminary NO GROWTH AFTER 72 HOURS 11/01/21 09:11 Tracheal Aspirate Sputum Culture - Preliminary 10/29/21 18:15 Urine,Clean Catch Urine Culture - Final NO GROWTH AFTER 48 HOURS Gregory/IV: Voiding Method Indwelling Catheter Active Medications - Current Medications Current Medications: Generic Name Dose Route Start Last Admin Trade Name Freq PRN Reason Stop Dose Admin Acetaminophen 650 mg 10/29/21 17:04 10/31/21 05:08 Acetaminophen 325 Mg Tab PO 650 mg Q6H PRN Administration Pain, Mild (1-3) Acetaminophen 650 mg 10/29/21 17:04 Acetaminophen 650 Mg Rect Supp GA Q6H PRN Pain MILD(1-3)/Fever >100.5/NIEVES Lipase/Protease/Amylase 1 each 10/31/21 08:56 Lipase 10,500/Protease 25,000/Amylase 43,750 (Units) Cap FEEDTUBE PRN PRN For Clogged Feeding Tube Dextrose 50 ml 10/30/21 15:21 Dextrose 50% In Water (25gm) 50 Ml Syringe IV Q30MIN PRN Hypoglycemia Protocol Famotidine 20 mg 11/01/21 10:00 11/02/21 09:45 Famotidine 20 Mg Tab FEEDTUBE 20 mg BID RAMON Administration Fentanyl 50 mcg 10/29/21 14:29 11/01/21 09:29 Fentanyl 100 Mcg/2 Ml Inj IV 50 mcg Q10MIN PRN Administration ANALGESIA Haloperidol Lactate 5 mg 11/01/21 14:38 11/01/21 14:51 Haloperidol Lactate 5 Mg/1 Ml Inj IV 11/03/21 14:37 5 mg Q6H PRN Administration Agitation Heparin Sodium (Porcine) 4,300 unit 10/30/21 17:00 Heparin 10,000 Units/10 Ml Vial 40 unit/kg (4300 unit) IV Q6H PRN Anti-Xa Assay < 0.1 units/ml Hydrophilic Ointment 1 applic 10/29/21 14:29 Lip Therapy Vaseline TP Q2HR PRN Dry Lips Fentanyl Citrate 2,000 mcg in 100 mls @ 5.67 mls/hr 10/29/21 15:00 11/02/21 11:06 Fentanyl Drip Premix IV 0.5 mcg/kg/hr TITR RAMON 2.835 mls/hr Titration Protocol 1 MCG/KG/HR NORepinephrine/NS 8 MG-250 ML 8 mg in 250 mls @ 3.75 mls/hr 10/29/21 15:00 11/02/21 11:15 Norepinephrine/Ns 8 Mg-250 Ml (Double Conc) IV 8 mcg/min TITRATE RAMON 15 mls/hr Titration Protocol 2 MCG/MIN Ceftriaxone Sodium 2 gm in 100 mls @ 200 mls/hr 10/29/21 18:00 11/01/21 18:00 Rocephin/Ns 2 Gm/100 Ml IV 11/02/21 18:29 200 mls/hr Q24H RAMON Administration Protocol Azithromycin 500 mg in 250 mls @ 250 mls/hr 10/29/21 18:00 11/01/21 18:00 Zithromax/Ns IV 11/02/21 18:59 250 mls/hr Q24H RAMON Administration Protocol Heparin Sodium/Sodium Chloride 25,000 unit in 500 mls @ 30 mls/hr 10/30/21 17:00 11/02/21 06:42 Heparin/ 0.45% Nacl-25,000 Unit/500 Ml IV 1,400 units/hr TITR RAMON 28 mls/hr Titration Protocol 1,500 UNITS/HR Insulin Human Lispro 0 unit 10/30/21 16:00 11/02/21 11:47 Insulin Lispro 100 Unit/Ml SUB-Q 1 unit Q6HR RAMON Administration Protocol Multi-Ingred Cream/Lotion/Oil/Oint 1 applic 10/29/21 14:29 Mineral Oil/Petrolatum, White Ophth Oint 3.5 Gm OU Q4HR PRN Dry Eye(s) Quetiapine Fumarate 100 mg 11/01/21 15:00 11/02/21 09:44 Quetiapine 100 Mg Tab PO 100 mg BID RAMON Administration Senna/Docusate Sodium 1 tab 10/29/21 15:00 11/02/21 09:44 Sennosides/Docusate Sodium 8.6/50 Mg Tab FEEDTUBE 1 tab BID RAMON Administration Simple Syrup 15 ml 10/31/21 08:56 Simple Syrup 15 Ml FEEDTUBE PRN PRN Hypoglycemia Simple Syrup 30 ml 10/31/21 08:56 Simple Syrup 15 Ml FEEDTUBE PRN PRN Hypoglycemia Sodium Bicarbonate 325 mg 10/31/21 08:56 Sodium Bicarbonate 325 Mg Tab FEEDTUBE PRN PRN For Clogged Feeding Tube Sodium Chloride 10 ml 10/29/21 22:00 11/02/21 09:45 Sodium Chloride 0.9% 10 Ml Flush Syringe IV 10 ml BID RAMON Administration Sodium Chloride 10 ml 10/29/21 17:04 Sodium Chloride 0.9% 10 Ml Flush Syringe IV PRN PRN LINE FLUSH Nutrition/Malnutrition Assess - Dietary Evaluation Nutrition/Malnutrition Findings: Nutrition Notes Start: 10/30/21 09:50 Freq: Status: Active Protocol: Document 10/31/21 11:57 YOVANY (Rec: 10/31/21 12:08 YOVANY [id number]) Nutrition Notes Need for Assessment generated from: MD Order Initial or Follow up Reassessment Current Diagnosis Hypertension,Respiratory Failure Other Pertinent Diagnosis Septic shock, s/p cardiac arrest, pneumothorax, r/o COVID-19 Current Diet NPO Labs/Tests K 3.5 BUN 28 Cr 1.7 A1C 6.7 Pertinent Medications Heparin gtt, 40mEq KCl x 1 dose Height 5 ft 10 in Weight 106.7 kg [place] Body Weight (kg) 68.18 BMI 33.7 Weight Status Obese Subjective/Other Information RD consulted for TF. Pt remains on vent support. Burn Absent Trauma Absent Minimum of two criteria No #1 Nutrition Diagnosis Inadequate oral intake Diagnosis Progress(for reassessment Continues documentation) Is patient on ventilator? Yes Is Patient Ambulatory and/or Out of Bed No REE-([facility]-confined to bed) 2022.848 Kcal/Kg value to use for calculation 15 Approximate Energy Requirements Using 1601 kcal/Kg Calculation Used for Recommendations Kcal/kg Additional Notes Pro needs 2g/kg IBW: 136g/day Fluid needs 1ml/kcal Nutrition Intervention Nutrition Support: Vital HP at 60ml/hr. Provide 50ml water flush q4h. Kcal 1,440 Protein (gm) 126 Carbohydrates (gm) 161 Fat (gm) 33 Fluid (mL) 1,204 Goal #1 TF tolerance Goal #2 TF to meet 65-70% energy and at least 75% pro needs Follow-Up By: 11/02/21 Additional Comments F/U: new TF, vent status <OLIVIA MONREAL - Last Filed: 11/03/21 13:33> Assessment and Plan Assessment and plan: I saw and evaluated the patient. Discussed with the nurse practitioner and agree with their findings and plan as documented in this note. Hospitalist Physical - Constitutional Vitals: Temp Pulse Resp BP Pulse Ox 101 F H 154 H 14 102/53 94 11/03/21 12:00 11/03/21 11:00 11/03/21 11:00 11/03/21 11:00 11/03/21 11:00 HEART Score - HEART Score Troponin: Troponin T 1.150 ng/mL (0.00-0.029) H* D 10/29/21 22:34 Results - Labs CBC & Chem 7: 11/03/21 06:00 11/03/21 06:00 Labs: Laboratory Last Values WBC 9.5 K/mm3 (4.5-11.0) 11/03/21 06:00 RBC 3.43 M/mm3 (3.65-5.03) L 11/03/21 06:00 Hgb 9.1 gm/dl (10.1-14.3) L 11/03/21 06:00 Hct 29.0 % (30.3-42.9) L 11/03/21 06:00 MCV 85 fl (79-97) 11/03/21 06:00 MCH 26 pg (28-32) L 11/03/21 06:00 MCHC 31 % (30-34) 11/03/21 06:00 RDW 16.4 % (13.2-15.2) H 11/03/21 06:00 Plt Count 181 K/mm3 (140-440) 11/03/21 06:00 Lymph % (Auto) 6.2 % (13.4-35.0) L 10/30/21 04:30 [place] % (Auto) 5.5 % (0.0-7.3) 10/30/21 04:30 Eos % (Auto) 0.1 % (0.0-4.3) 10/30/21 04:30 Baso % (Auto) 0.1 % (0.0-1.8) 10/30/21 04:30 Lymph # (Auto) 1.0 K/mm3 (1.2-5.4) L 10/30/21 04:30 [place] # (Auto) 0.9 K/mm3 (0.0-0.8) H 10/30/21 04:30 Eos # (Auto) 0.0 K/mm3 (0.0-0.4) 10/30/21 04:30 Baso # (Auto) 0.0 K/mm3 (0.0-0.1) 10/30/21 04:30 Add Manual Diff Complete 10/29/21 15:10 Total Counted 100 10/29/21 15:10 Seg Neutrophils % 88.1 % (40.0-70.0) H 10/30/21 04:30 Seg Neuts % (Manual) 78.0 % (40.0-70.0) H 10/29/21 15:10 Band Neutrophils % 5.0 % 10/29/21 15:10 Lymphocytes % (Manual) 10.0 % (13.4-35.0) L 10/29/21 15:10 Reactive Lymphs % (Man) 0 % 10/29/21 15:10 Monocytes % (Manual) 5.0 % (0.0-7.3) 10/29/21 15:10 Eosinophils % (Manual) 0 % (0.0-4.3) 10/29/21 15:10 Basophils % (Manual) 0 % (0.0-1.8) 10/29/21 15:10 Metamyelocytes % 2.0 % 10/29/21 15:10 Myelocytes % 0 % 10/29/21 15:10 Promyelocytes % 0 % 10/29/21 15:10 Blast Cells % 0 % 10/29/21 15:10 Nucleated RBC % Not Reportable 10/29/21 15:10 Seg Neutrophils # 14.2 K/mm3 (1.8-7.7) H 10/30/21 04:30 Seg Neutrophils # Man 21.7 K/mm3 (1.8-7.7) H 10/29/21 15:10 Band Neutrophils # 1.4 K/mm3 10/29/21 15:10 Lymphocytes # (Manual) 2.8 K/mm3 (1.2-5.4) 10/29/21 15:10 Abs React Lymphs (Man) 0.0 K/mm3 10/29/21 15:10 Monocytes # (Manual) 1.4 K/mm3 (0.0-0.8) H 10/29/21 15:10 Eosinophils # (Manual) 0.0 K/mm3 (0.0-0.4) 10/29/21 15:10 Basophils # (Manual) 0.0 K/mm3 (0.0-0.1) 10/29/21 15:10 Metamyelocytes # 0.6 K/mm3 10/29/21 15:10 Myelocytes # 0.0 K/mm3 10/29/21 15:10 Promyelocytes # 0.0 K/mm3 10/29/21 15:10 Blast Cells # 0.0 K/mm3 10/29/21 15:10 WBC Morphology Not Reportable 10/29/21 15:10 Hypersegmented Neuts Not Reportable 10/29/21 15:10 Hyposegmented Neuts Not Reportable 10/29/21 15:10 Hypogranular Neuts Not Reportable 10/29/21 15:10 Smudge Cells Not Reportable 10/29/21 15:10 Toxic Granulation Not Reportable 10/29/21 15:10 Toxic Vacuolation Not Reportable 10/29/21 15:10 Dohle Bodies Not Reportable 10/29/21 15:10 Pelger-Huet Anomaly Not Reportable 10/29/21 15:10 Manny Rods Not Reportable 10/29/21 15:10 Platelet Estimate Consistent w auto 10/29/21 15:10 Clumped Platelets Not Reportable 10/29/21 15:10 Plt Clumps, EDTA Not Reportable 10/29/21 15:10 Large Platelets Not Reportable 10/29/21 15:10 Giant Platelets Not Reportable 10/29/21 15:10 Platelet Satelliting Not Reportable 10/29/21 15:10 Plt Morphology Comment Not Reportable 10/29/21 15:10 RBC Morphology Not Reportable 10/29/21 15:10 Dimorphic RBCs Not Reportable 10/29/21 15:10 Polychromasia Not Reportable 10/29/21 15:10 Hypochromasia Not Reportable 10/29/21 15:10 Poikilocytosis 1+ 10/29/21 15:10 Anisocytosis Not Reportable 10/29/21 15:10 Microcytosis 1+ 10/29/21 15:10 Macrocytosis Not Reportable 10/29/21 15:10 Spherocytes Not Reportable 10/29/21 15:10 Pappenheimer Bodies Not Reportable 10/29/21 15:10 Sickle Cells Not Reportable 10/29/21 15:10 Target Cells Not Reportable 10/29/21 15:10 Tear Drop Cells Not Reportable 10/29/21 15:10 Ovalocytes Few 10/29/21 15:10 Helmet Cells Not Reportable 10/29/21 15:10 Maradiaga-Crofton Bodies Not Reportable 10/29/21 15:10 Argenta Rings Not Reportable 10/29/21 15:10 [place] Cells Not Reportable 10/29/21 15:10 Bite Cells Not Reportable 10/29/21 15:10 Crenated Cell Not Reportable 10/29/21 15:10 Elliptocytes Few 10/29/21 15:10 Acanthocytes (Spur) Not Reportable 10/29/21 15:10 Rouleaux Not Reportable 10/29/21 15:10 Hemoglobin C Crystals Not Reportable 10/29/21 15:10 Schistocytes Not Reportable 10/29/21 15:10 Malaria parasites Not Reportable 10/29/21 15:10 Magdy Bodies Not Reportable 10/29/21 15:10 Hem Pathologist Commnt No 10/29/21 15:10 PT 17.2 Sec. (12.2-14.9) H 10/30/21 16:30 INR 1.27 (0.87-1.13) H 10/30/21 16:30 APTT 44.4 Sec. (24.2-36.6) H 10/30/21 16:30 D-Dimer > 26339 ng/mlDDU (0-234) H 10/30/21 Unknown Heparin Anti-Xa Level 0.17 U.I./ml (0.3-0.7) L 11/03/21 06:00 ABG pH 7.274 pH Units (7.350-7.450) L 11/03/21 09:20 ABG pCO2 54.3 mm Hg 11/03/21 09:20 ABG pO2 75.6 mm Hg (80.0-90.0) L 11/03/21 09:20 ABG HCO3 24.6 mmol/L (20.0-26.0) 11/03/21 09:20 ABG O2 Saturation 94.9 % (95.0-99.0) L 11/03/21 09:20 ABG O2 Content 12.2 (0.0-44) 11/03/21 09:20 ABG Base Excess -2.5 mmol/L (-2.0-3.0) L 11/03/21 09:20 ABG Hemoglobin 9.3 gm/dl (12.0-16.0) L 11/03/21 09:20 ABG Carboxyhemoglobin 1.5 % (0.0-5.0) 11/03/21 09:20 ABG Methemoglobin 0.6 % (0.0-1.5) 11/03/21 09:20 Oxyhemoglobin 92.9 % (95.0-99.0) L 11/03/21 09:20 FiO2 40 % 11/03/21 09:20 Sodium 149 mmol/L (137-145) H 11/03/21 06:00 Potassium 5.0 mmol/L (3.6-5.0) 11/03/21 06:00 Chloride 117.5 mmol/L (98-107) H 11/03/21 06:00 Carbon Dioxide 22 mmol/L (22-30) 11/03/21 06:00 Anion Gap 15 mmol/L 11/03/21 06:00 BUN 32 mg/dL (7-17) H 11/03/21 06:00 Creatinine 1.2 mg/dL (0.6-1.2) 11/03/21 06:00 Estimated GFR 54 ml/min 11/03/21 06:00 BUN/Creatinine Ratio 27 % 11/03/21 06:00 Glucose 173 mg/dL (65-100) H 11/03/21 06:00 POC Glucose 192 mg/dL (70-105) H 11/03/21 11:58 Hemoglobin A1c 6.7 % (4-6) H 10/31/21 04:30 Lactic Acid 0.70 mmol/L (0.7-2.0) 10/31/21 15:45 Calcium 8.1 mg/dL (8.4-10.2) L 11/03/21 06:00 Phosphorus 4.40 mg/dL (2.5-4.5) 11/02/21 05:35 Magnesium 2.70 mg/dL (1.7-2.3) H 11/02/21 05:35 Ferritin 208.4 ng/mL (10.0-200.0) H 10/30/21 Unknown Total Bilirubin 0.30 mg/dL (0.1-1.2) 11/01/21 06:00 AST 79 units/L (5-40) H 11/01/21 06:00 ALT 259 units/L (7-56) H 11/01/21 06:00 Alkaline Phosphatase 113 units/L (35-129) 11/01/21 06:00 Ammonia 31.0 umol/L (25-60) 10/29/21 15:10 Lactate Dehydrogenase 469 units/L (91-180) H 10/30/21 Unknown Troponin T 1.150 ng/mL (0.00-0.029) H* D 10/29/21 22:34 C-Reactive Protein 13.40 mg/dL (0.00-1.30) H 10/30/21 Unknown Total Protein 5.5 g/dL (6.3-8.2) L 11/01/21 06:00 Albumin 2.7 g/dL (3.9-5) L 11/01/21 06:00 Albumin/Globulin Ratio 1.0 % 11/01/21 06:00 Triglycerides 68 mg/dL (2-149) 10/29/21 19:40 Cholesterol 98 mg/dL (50-199) 10/29/21 19:40 LDL Cholesterol Direct 43 mg/dL (50-130) L 10/29/21 19:40 HDL Cholesterol 50 mg/dL (40-59) 10/29/21 19:40 Cholesterol/HDL Ratio 1.96 % 10/29/21 19:40 Procalcitonin 61.95 ng/mL (<0.15) 10/30/21 Unknown TSH 3.080 mlU/mL (0.270-4.200) 10/29/21 15:10 Urine Color Straw (Yellow) 10/29/21 18:15 Urine Turbidity Clear (Clear) 10/29/21 18:15 Urine pH 7.0 (5.0-7.0) 10/29/21 18:15 Ur Specific [place] 1.018 (1.003-1.030) 10/29/21 18:15 Urine Protein 100 mg/dl mg/dL (Negative) 10/29/21 18:15 Urine Glucose (UA) 150 mg/dL (Negative) 10/29/21 18:15 Urine Ketones Neg mg/dL (Negative) 10/29/21 18:15 Urine Blood Mod (Negative) 10/29/21 18:15 Urine Nitrite Neg (Negative) 10/29/21 18:15 Urine Bilirubin Neg (Negative) 10/29/21 18:15 Urine Urobilinogen < 2.0 mg/dL (<2.0) 10/29/21 18:15 Ur Leukocyte Esterase Neg (Negative) 10/29/21 18:15 Urine WBC (Auto) 5.0 /HPF (0.0-6.0) 10/29/21 18:15 Urine RBC (Auto) 2.0 /HPF (0.0-6.0) 10/29/21 18:15 U Epithel Cells (Auto) < 1.0 /HPF (0-13.0) 10/29/21 18:15 Urine Mucus Few /HPF 10/29/21 18:15 Urine Creatinine 383.6 mg/dL (0.1-20.0) H 10/31/21 16:35 Urine Sodium 16 mmol/L 10/31/21 16:35 Salicylates < 0.3 mg/dL (2.8-20.0) L 10/29/21 15:10 Urine Opiates Screen Negative 10/29/21 18:15 Urine Methadone Screen Negative 10/29/21 18:15 Acetaminophen 5.0 ug/mL (10.0-30.0) L 10/29/21 15:10 Ur Barbiturates Screen Negative 10/29/21 18:15 Ur Phencyclidine Scrn Negative 10/29/21 18:15 Ur Amphetamines Screen Negative 10/29/21 18:15 U Benzodiazepines Scrn Negative 10/29/21 18:15 Urine Cocaine Screen Negative 10/29/21 18:15 U Marijuana (THC) Screen Negative 10/29/21 18:15 Drugs of Abuse Note Disclamer 10/29/21 18:15 Plasma/Serum Alcohol < 0.01 % (0-0.07) 10/29/21 15:10 Coronavirus (PCR) Negative (Negative) 10/30/21 Unknown Blood Type O POSITIVE 10/29/21 15:10 Antibody Screen Negative 10/29/21 15:10 Microbiology: Microbiology 10/29/21 Unknown Peripheral/Venous Blood Culture - Preliminary NO GROWTH AFTER 4 DAYS 10/29/21 Unknown Peripheral/Venous Blood Culture - Preliminary NO GROWTH AFTER 4 DAYS 11/01/21 09:11 Tracheal Aspirate Sputum Culture - Preliminary Gregory/IV: Voiding Method Indwelling Catheter Active Medications - Current Medications Current Medications: Generic Name Dose Route Start Last Admin Trade Name Freq PRN Reason Stop Dose Admin Acetaminophen 650 mg 10/29/21 17:04 11/03/21 11:35 Acetaminophen 325 Mg Tab PO 650 mg Q6H PRN Administration Pain, Mild (1-3) Acetaminophen 650 mg 10/29/21 17:04 Acetaminophen 650 Mg Rect Supp GA Q6H PRN Pain MILD(1-3)/Fever >100.5/NIEVES Lipase/Protease/Amylase 1 each 10/31/21 08:56 Lipase 10,500/Protease 25,000/Amylase 43,750 (Units) Dr Ivory FEEDTUBE PRN PRN For Clogged Feeding Tube Dextrose 50 ml 10/30/21 15:21 Dextrose 50% In Water (25gm) 50 Ml Syringe IV Q30MIN PRN Hypoglycemia Protocol Famotidine 20 mg 11/01/21 10:00 11/03/21 09:07 Famotidine 20 Mg Tab FEEDTUBE 20 mg BID RAMON Administration Haloperidol Lactate 5 mg 11/01/21 14:38 11/02/21 21:49 Haloperidol Lactate 5 Mg/1 Ml Inj IV 11/03/21 14:37 5 mg Q6H PRN Administration Agitation Heparin Sodium (Porcine) 4,300 unit 10/30/21 17:00 Heparin 10,000 Units/10 Ml Vial 40 unit/kg (4300 unit) IV Q6H PRN Anti-Xa Assay < 0.1 units/ml Hydrophilic Ointment 1 applic 10/29/21 14:29 Lip Therapy Vaseline TP Q2HR PRN Dry Lips Fentanyl Citrate 2,000 mcg in 100 mls @ 5.67 mls/hr 10/29/21 15:00 11/03/21 11:52 Fentanyl Drip Premix IV 2 mcg/kg/hr TITR RAMON 11.34 mls/hr Administration Protocol 1 MCG/KG/HR NORepinephrine/NS 8 MG-250 ML 8 mg in 250 mls @ 3.75 mls/hr 10/29/21 15:00 11/03/21 09:00 Norepinephrine/Ns 8 Mg-250 Ml (Double Conc) IV 10 mcg/min TITRATE RAMON 18.75 mls/hr Titration Protocol 2 MCG/MIN Heparin Sodium/Sodium Chloride 25,000 unit in 500 mls @ 30 mls/hr 10/30/21 17:00 11/03/21 07:16 Heparin/ 0.45% Nacl-25,000 Unit/500 Ml IV 1,500 units/hr TITR RAMON 30 mls/hr Titration Protocol 1,500 UNITS/HR Amiodarone HCl 900 mg/ 500 mls @ 33.333 mls/hr 11/03/21 11:00 11/03/21 11:56 Dextrose IV 1 mg/min DIRECT RAMON 33.333 mls/hr Administration Protocol 1 MG/MIN Insulin Human Lispro 0 unit 10/30/21 16:00 11/03/21 12:05 Insulin Lispro 100 Unit/Ml SUB-Q 1 unit Q6HR RAMON Administration Protocol Multi-Ingred Cream/Lotion/Oil/Oint 1 applic 10/29/21 14:29 Mineral Oil/Petrolatum, White Ophth Oint 3.5 Gm OU Q4HR PRN Dry Eye(s) Quetiapine Fumarate 50 mg 11/02/21 22:00 11/03/21 09:05 Quetiapine 25 Mg Tab PO 50 mg BID RAMON Administration Senna/Docusate Sodium 1 tab 10/29/21 15:00 11/03/21 09:05 Sennosides/Docusate Sodium 8.6/50 Mg Tab FEEDTUBE 1 tab BID RAMON Administration Simple Syrup 15 ml 10/31/21 08:56 Simple Syrup 15 Ml FEEDTUBE PRN PRN Hypoglycemia Simple Syrup 30 ml 10/31/21 08:56 Simple Syrup 15 Ml FEEDTUBE PRN PRN Hypoglycemia Sodium Bicarbonate 325 mg 10/31/21 08:56 Sodium Bicarbonate 325 Mg Tab FEEDTUBE PRN PRN For Clogged Feeding Tube Sodium Chloride 10 ml 10/29/21 22:00 11/03/21 09:06 Sodium Chloride 0.9% 10 Ml Flush Syringe IV 10 ml BID RAMON Administration Sodium Chloride 10 ml 10/29/21 17:04 Sodium Chloride 0.9% 10 Ml Flush Syringe IV PRN PRN LINE FLUSH Nutrition/Malnutrition Assess - Dietary Evaluation Nutrition/Malnutrition Findings: Nutrition Notes Start: 10/30/21 09:50 Freq: Status: Active Protocol: Document 11/03/21 12:36 MEENU (Rec: 11/03/21 12:50 MEENU [id number]) Nutrition Notes Initial or Follow up Brief Note Current Diet TF-Vital HP @ 60 ml/hr (since L 10/31). Height 5 ft 10 in Weight 106.7 kg [place] Body Weight (kg) 68.18 BMI 33.7 Weight change and time frame No body weight change reported in 4 days. Weight Status Obese Subjective/Other Information RD consult for routine F/U on TF tolerance. TF continues as prescribed and well tolerated, according to RN notes. Percent of energy/protein needs met: Prescribed Vital HP @ 60 ml/hr provides for energy/protein needs (1,440 Kcal/126 g) during LOS, 90% Kcal; 93% AA. #1 Nutrition Diagnosis Inadequate oral intake Diagnosis Progress(for reassessment Continues documentation) Is patient on ventilator? Yes Is Patient Ambulatory and/or Out of Bed No REE-([place]-confined to bed) 2022.848 Kcal/Kg value to use for calculation 15 Approximate Energy Requirements Using 1601 kcal/Kg Calculation Used for Recommendations Kcal/kg Additional Notes Protein: 2 g/Kg IBW; 136 g/day . Fluids: 1 ml/Kcal, or as per MD. Nutrition Intervention Nutrition Support: Continue Vital HP @ 60 ml/hr. Flush: 50 ml water Q 4 hr, or as per MD. Kcal 1,440 Protein (gm) 126 Carbohydrates (gm) 161 Fat (gm) 33 Fluid (mL) 1,204 Fiber (gm) 0 % RDI: 90% Kcal; 93% AA. Goal #1 Provide at least 75% of energy /protein needs through Enteral Feeding during LOS. Goal #2 Maintain body weight within +/ -3% of admission body weight during LOS. Follow-Up By: 11/10/21 Additional Comments Continue monitoring TF tolerance and BM.
[2021-11-02] MEDS ORDERED: SODIUM CHLORIDE 0.9% 1000 ML 1,000 ML IV SCH (14:00)
[2021-11-02] MEDS: HEPARIN/ 0.45% NACL DRIP 25,000 UNIT/500 ML BAG IV SCH (14:15)
[2021-11-02] MEDS: ACETAMINOPHEN 325 MG TAB PO PRN (16:36)
[2021-11-02] MEDS: AZITHROMYCIN/NS 500 MG/250 ML 500 MG/250 ML BAG IV SCH (17:46)
[2021-11-02] MEDS: cefTRIAXone/NS 2 GM/100 ML 2 GM/100 ML BAG IV SCH (17:47)
[2021-11-02] MEDS: fentaNYL 100 MCG/2 ML INJ IV PRN (18:03)
[2021-11-02] MEDS: NORepinephrine/NS 8 MG-250 ML 8 MG/250 ML INFUS..BTL IV SCH (18:03)
[2021-11-02] MEDS: QUEtiapine 25 MG TAB PO SCH (21:36)
[2021-11-02] MEDS: HALOPERIDOL LACTATE 5 MG/1 ML INJ IV PRN (21:49)
[2021-11-02] MEDS ORDERED: METOPROLOL TARTRATE 5 MG/5 ML INJ IV ONE (23:51)
--- NOTE | 2021-11-03 02:58 | XRay Report ---
CHEST 1 VIEW INDICATION / CLINICAL INFORMATION: follow up respiratory failure. COMPARISON: Chest x-ray 11/02/2021 FINDINGS: SUPPORT DEVICES: Stable, satisfactory device positioning. HEART / MEDIASTINUM: Stable cardiomegaly. LUNGS / PLEURA: Low lung volumes with opacities in the left lung base compatible with atelectasis or infection. Right lung grossly clear. No large right pneumothorax. ADDITIONAL FINDINGS: No significant additional findings. IMPRESSION: 1. Stable appearance of multiple tubes and lines. No significant right pneumothorax. 2. Bibasilar opacities left lung base compatible with atelectasis or infection. Stable. Signer Name: Martínez Rosenberg II, MD Signed: 11/03/2021 2:54 AM Workstation Name: [id number]
[2021-11-03] MEDS: fentaNYL DRIP Premix 2,000 MCG/100 ML BAG IV SCH ×3 (03:21→22:25)
[2021-11-03] MEDS: INSULIN LISPRO 100 UNIT/ML SUB-Q SCH ×4 (05:18→18:33)
[2021-11-03] MEDS ORDERED: dilTIAZem 25 MG/5 ML INJ IV ONE (05:57)
[2021-11-03] MEDS ORDERED: METOPROLOL TARTRATE 5 MG/5 ML INJ IV ONE (05:59)
[2021-11-03 06:35] LABS: Hemoglobin 9.1 gm/dl (10.1-14.3); Mean Corpuscular HGB Conc 31 % (30-34); Mean Corpuscular Volume 85 fl (79-97); Platelet Count 181 K/mm3 (140-440); Red Blood Count 3.43 M/mm3 (3.65-5.03); Red Cell Distribution Width 16.4 % (13.2-15.2)
[2021-11-03 06:55] LABS: Calcium 8.1 mg/dL (8.4-10.2)
[2021-11-03] MEDS: HEPARIN/ 0.45% NACL DRIP 25,000 UNIT/500 ML BAG IV SCH (07:15)
[2021-11-03] MEDS: QUEtiapine 25 MG TAB PO SCH ×2 (09:05→22:00)
[2021-11-03] MEDS: SENNOSIDES/DOCUSATE SODIUM 8.6/50 MG TAB FEEDTUBE SCH ×2 (09:05→21:02)
[2021-11-03] MEDS: FAMOTIDINE 20 MG TAB FEEDTUBE SCH (09:07)
[2021-11-03 09:32] LABS: ABG Base Excess -2.5 mmol/L (-2.0-3.0); ABG HCO3 24.6 mmol/L (20.0-26.0); ABG Methemoglobin 0.6 % (0.0-1.5); ABG Oxygen Saturation 94.9 % (95.0-99.0); ABG PCO2 54.3 mm Hg; ABG PH 7.274 pH Units (7.350-7.450); ABG PO2 75.6 mm Hg (80.0-90.0)
[2021-11-03] MEDS ORDERED: AMIODARONE 150 MG in DEXTROSE 5% IN WATER 97 ML IV ONE (10:42)
--- NOTE | 2021-11-03 11:32 | Progress Note ---
Assessment and Plan Acute hypoxemic respiratory failure on MVS Cardiac arrest with ROSC Acute DVT Right pneumothorax Shock (septic +/- cardiogenic) Possible aspiration pneumonia SIERRA Altered mental status/acute encephalopathy Elevated serum transaminases, likely shock liver Metabolic acidosis Obesity Leukocytosis Hypokalemia Lactic acidosis - treat angioedema re: steroids and anti-histamine therapy - Mag Citrate 300 mls p.o. X 1 - titrate Amiodarone drip - BMP in am - bladder scam +/- re-insert krishna catheter - gentle hydration - consider Dobutrex (if develops cardio-renal syndrome) - continue care as below otherwise; - vasopressors for target MAP > 65 mmHg - continue full anticoagulation with IV Heparin re: DVT - continue Daily SAT and SBT assessment as tolerated - continue to wean supplemental oxygen for target O2 sat's > 90% acutely - VAP bundle addressed - continue lung protective strategies - continue bronchodilators with pulmonary hygiene per RT - wean per pulmonary driven protocols otherwise - continue accuchecks with glycemic control per SSI (While critically ill target blood glucose of 140-180 mg/dL; avoid hypoglycemia) - sedation prn for target RASS 0 to -1 - avoid nephrotoxins, renally dose all medications - continue to avoid benzodiazepine's, reduce the possibility of delirium - AB's per ID rec's - prn analgesia per CPOT score - Maintenance of sleep-wake cycle, avoid delirium - continue enteral nutritional support at goal rate as tolerated - G.I. & VTE prophylaxis - PT/OT/ROM exercises - continue mobility protocols for pressure ulcer prophylaxis - Monitor hemodynamics closely - continue other care per attending / other consultants - discharge planning ongoing concurrently COVID SPECIFIC INTERVENTIONS - COVID-19 PCR negative .... Re-evaluate in am & prn CONDITION: CRITICAL PROGNOSIS: GUARDED CODE STATUS: FULL CODE The high probability of a clinically significant, sudden or life-threatening deterioration of the [respiratory, cardiovascular, renal & neurologic] system(s) required my full and direct attention, intervention and personal management. The aggregate critical care time was [32] minutes without overlap. Time includes spent on; [x] Data Review and interpretation [x] Patient assessment and monitoring of vital signs [x] Documentation [x] Medication orders and management Subjective Date of service: 11/03/21 Principal diagnosis: AHRF; Cardiac arrest; R. pneumothorax; pneumonia; AMS; DVT's; SIERRA; Obesity Interval history: Patient is seen today for: Acute hypoxemic respiratory failure; Cardiac arrest with ROSC; Right pneumothorax; pneumonia; AMS; bilateral DVT's; SIERRA; Obesity Seen and examined at bedside; 24hour events reviewed; nursing and respiratory care staff consulted; no adverse overnight events reported to me; remains on MVS; tongue swelling noted; also episodes of A-fib/flutter with RVR earlier; started on Amiodarone drip; some bleeding noted from tracheal suction; constipated Objective Vital Signs - 12hr 11/02/21 11/02/21 11/02/21 23:43 23:45 23:59 Temperature 98.9 F Pulse Rate 153 H 152 H Pulse Rate [ From Monitor] Respiratory 14 Rate Blood Pressure 90/53 103/56 O2 Sat by Pulse 96 Oximetry 11/03/21 11/03/21 11/03/21 00:00 00:01 00:15 Temperature Pulse Rate 109 H 110 H 117 H Pulse Rate [ 119 H From Monitor] Respiratory 14 14 14 Rate Blood Pressure 89/54 89/54 95/52 O2 Sat by Pulse 97 97 97 Oximetry 11/03/21 11/03/21 11/03/21 00:22 00:30 00:45 Temperature Pulse Rate 117 H 117 H 117 H Pulse Rate [ From Monitor] Respiratory 14 14 Rate Blood Pressure 95/52 100/55 97/56 O2 Sat by Pulse 97 97 97 Oximetry 11/03/21 11/03/21 11/03/21 01:00 01:16 01:30 Temperature Pulse Rate 118 H 112 H 117 H Pulse Rate [ From Monitor] Respiratory 14 14 14 Rate Blood Pressure 103/57 107/55 102/55 O2 Sat by Pulse 97 97 97 Oximetry 11/03/21 11/03/21 11/03/21 01:45 02:00 02:15 Temperature Pulse Rate 151 H 128 H 120 H Pulse Rate [ From Monitor] Respiratory 14 14 14 Rate Blood Pressure 101/64 107/62 98/59 O2 Sat by Pulse 96 96 96 Oximetry 11/03/21 11/03/21 11/03/21 02:30 02:45 03:00 Temperature Pulse Rate 128 H 137 H 151 H Pulse Rate [ From Monitor] Respiratory 14 14 14 Rate Blood Pressure 106/61 106/64 89/59 O2 Sat by Pulse 96 96 96 Oximetry 11/03/21 11/03/21 11/03/21 03:15 03:30 03:45 Temperature Pulse Rate 130 H 137 H 153 H Pulse Rate [ From Monitor] Respiratory 14 14 14 Rate Blood Pressure 88/56 100/61 95/64 O2 Sat by Pulse 96 96 96 Oximetry 11/03/21 11/03/21 11/03/21 04:00 04:15 04:16 Temperature 98.0 F Pulse Rate 154 H 108 H 154 H Pulse Rate [ 155 H From Monitor] Respiratory 14 14 Rate Blood Pressure 91/62 97/54 94/60 O2 Sat by Pulse 96 99 96 Oximetry 11/03/21 11/03/21 11/03/21 04:30 04:46 05:00 Temperature Pulse Rate 155 H 155 H 155 H Pulse Rate [ From Monitor] Respiratory 14 14 14 Rate Blood Pressure 94/60 94/60 94/60 O2 Sat by Pulse 96 96 96 Oximetry 11/03/21 11/03/21 11/03/21 05:12 05:15 05:30 Temperature Pulse Rate 155 H 80 83 Pulse Rate [ From Monitor] Respiratory 14 14 Rate Blood Pressure 90/50 95/55 O2 Sat by Pulse 97 95 Oximetry 11/03/21 11/03/21 11/03/21 05:45 06:00 06:15 Temperature Pulse Rate 106 H 110 H 117 H Pulse Rate [ From Monitor] Respiratory 14 14 14 Rate Blood Pressure 98/46 112/52 105/51 O2 Sat by Pulse 94 94 94 Oximetry 11/03/21 11/03/21 11/03/21 06:30 06:46 07:00 Temperature Pulse Rate 123 H 139 H 131 H Pulse Rate [ From Monitor] Respiratory 14 14 14 Rate Blood Pressure 108/52 112/59 118/56 O2 Sat by Pulse 94 94 95 Oximetry 11/03/21 11/03/21 11/03/21 07:16 07:30 07:45 Temperature Pulse Rate 82 83 152 H Pulse Rate [ From Monitor] Respiratory 14 14 14 Rate Blood Pressure 91/54 89/57 104/76 O2 Sat by Pulse 95 96 96 Oximetry 11/03/21 11/03/21 11/03/21 08:00 08:16 08:30 Temperature 102.2 F H Pulse Rate 98 H 152 H 131 H Pulse Rate [ 155 H From Monitor] Respiratory 15 16 15 Rate Blood Pressure 89/54 109/71 109/71 O2 Sat by Pulse 96 100 94 Oximetry 11/03/21 11/03/21 11/03/21 08:46 09:00 09:16 Temperature Pulse Rate 141 H 155 H 158 H Pulse Rate [ From Monitor] Respiratory 14 14 14 Rate Blood Pressure 96/55 103/68 100/70 O2 Sat by Pulse 95 95 95 Oximetry 11/03/21 11/03/21 11/03/21 09:30 09:45 10:00 Temperature Pulse Rate 158 H 155 H 156 H Pulse Rate [ From Monitor] Respiratory 14 15 16 Rate Blood Pressure 103/63 107/65 102/41 O2 Sat by Pulse 96 94 94 Oximetry 11/03/21 11/03/21 11/03/21 10:15 10:30 10:45 Temperature Pulse Rate 156 H 156 H 156 H Pulse Rate [ From Monitor] Respiratory 15 16 15 Rate Blood Pressure 102/51 99/52 106/60 O2 Sat by Pulse 95 95 96 Oximetry 11/03/21 11:00 Temperature Pulse Rate 154 H Pulse Rate [ From Monitor] Respiratory 14 Rate Blood Pressure 102/53 O2 Sat by Pulse 94 Oximetry Constitutional: appears uncomfortable, other (elderly obese female with mildly increased respiratory effort at rest) Eyes: non-icteric ENT: oropharynx moist, other (ETT 23 cm KRYSTAL) Neck: supple, no lymphadenopathy, no JVD Effort: normal Ascultation: Bilateral: diminished breath sounds, rhonchi Percussion: Bilateral: not dull Cardiovascular: regular rate and rhythm Gastrointestinal: normoactive bowel sounds, soft, non-tender, non-distended (protuberant) Integumentary: normal Extremities: no cyanosis, no edema, pulses normal, no ischemia or petechiae Neurologic: non-focal exam (grossly), pupils equal and round, unable to assess Psychiatric: other (unable to assess re: AMS) CBC and BMP: 11/04/21 09:40 11/04/21 09:40 ABG, PT/INR, D-dimer: ABG ABG pH 7.274 pH Units (7.350-7.450) L 11/03/21 09:20 ABG pCO2 54.3 mm Hg 11/03/21 09:20 ABG pO2 75.6 mm Hg (80.0-90.0) L 11/03/21 09:20 ABG O2 Saturation 94.9 % (95.0-99.0) L 11/03/21 09:20 PT/INR, D-dimer PT 17.2 Sec. (12.2-14.9) H 10/30/21 16:30 INR 1.27 (0.87-1.13) H 10/30/21 16:30 D-Dimer > 67076 ng/mlDDU (0-234) H 10/30/21 Unknown Abnormal lab findings: Abnormal Labs 10/29/21 10/29/21 10/29/21 15:10 15:10 15:10 WBC 27.8 H RBC Hgb Hct MCH 27 L RDW Plt Count Lymph % (Auto) Lymph # (Auto) [place] # (Auto) Seg Neutrophils % Seg Neuts % (Manual) 78.0 H Lymphocytes % (Manual) 10.0 L Seg Neutrophils # Seg Neutrophils # Man 21.7 H Monocytes # (Manual) 1.4 H PT INR APTT D-Dimer Heparin Anti-Xa Level ABG pH ABG pO2 ABG O2 Saturation ABG Base Excess ABG Hemoglobin Oxyhemoglobin Sodium Potassium Chloride Carbon Dioxide BUN Creatinine Glucose POC Glucose Hemoglobin A1c Lactic Acid 6.80 H* Calcium Magnesium Ferritin AST ALT Alkaline Phosphatase Lactate Dehydrogenase Troponin T 0.089 H C-Reactive Protein Total Protein Albumin LDL Cholesterol Direct Urine Creatinine Salicylates Acetaminophen 10/29/21 10/29/21 10/29/21 15:10 15:10 15:10 WBC RBC Hgb Hct MCH RDW Plt Count Lymph % (Auto) Lymph # (Auto) [place] # (Auto) Seg Neutrophils % Seg Neuts % (Manual) Lymphocytes % (Manual) Seg Neutrophils # Seg Neutrophils # Man Monocytes # (Manual) PT INR APTT D-Dimer Heparin Anti-Xa Level ABG pH ABG pO2 ABG O2 Saturation ABG Base Excess ABG Hemoglobin Oxyhemoglobin Sodium 136 L Potassium 2.8 L* Chloride 93.4 L Carbon Dioxide 20 L BUN Creatinine Glucose 330 H POC Glucose Hemoglobin A1c Lactic Acid Calcium Magnesium Ferritin AST 1013 H ALT 1289 H Alkaline Phosphatase 246 H Lactate Dehydrogenase Troponin T C-Reactive Protein Total Protein Albumin LDL Cholesterol Direct Urine Creatinine Salicylates < 0.3 L Acetaminophen 5.0 L 10/29/21 10/29/21 10/29/21 15:11 16:01 19:29 WBC RBC Hgb Hct MCH RDW Plt Count Lymph % (Auto) Lymph # (Auto) [place] # (Auto) Seg Neutrophils % Seg Neuts % (Manual) Lymphocytes % (Manual) Seg Neutrophils # Seg Neutrophils # Man Monocytes # (Manual) PT INR APTT D-Dimer Heparin Anti-Xa Level ABG pH 7.307 L ABG pO2 64.1 L ABG O2 Saturation 90.8 L ABG Base Excess -2.9 L ABG Hemoglobin Oxyhemoglobin 89.3 L Sodium Potassium Chloride Carbon Dioxide BUN Creatinine Glucose POC Glucose Hemoglobin A1c Lactic Acid 2.60 H* Calcium Magnesium 2.90 H Ferritin AST ALT Alkaline Phosphatase Lactate Dehydrogenase Troponin T C-Reactive Protein Total Protein Albumin LDL Cholesterol Direct Urine Creatinine Salicylates Acetaminophen 10/29/21 10/29/21 10/30/21 19:40 22:34 04:30 WBC 16.2 H RBC Hgb Hct MCH 26 L RDW 15.5 H Plt Count Lymph % (Auto) 6.2 L Lymph # (Auto) 1.0 L [place] # (Auto) 0.9 H Seg Neutrophils % 88.1 H Seg Neuts % (Manual) Lymphocytes % (Manual) Seg Neutrophils # 14.2 H Seg Neutrophils # Man Monocytes # (Manual) PT INR APTT D-Dimer Heparin Anti-Xa Level ABG pH ABG pO2 ABG O2 Saturation ABG Base Excess ABG Hemoglobin Oxyhemoglobin Sodium Potassium Chloride Carbon Dioxide BUN Creatinine Glucose POC Glucose Hemoglobin A1c Lactic Acid Calcium Magnesium Ferritin AST ALT Alkaline Phosphatase Lactate Dehydrogenase Troponin T 1.950 H* D 1.150 H* D C-Reactive Protein Total Protein Albumin LDL Cholesterol Direct 43 L Urine Creatinine Salicylates Acetaminophen 10/30/21 10/30/21 10/30/21 04:30 04:35 05:45 WBC RBC Hgb Hct MCH RDW Plt Count Lymph % (Auto) Lymph # (Auto) [place] # (Auto) Seg Neutrophils % Seg Neuts % (Manual) Lymphocytes % (Manual) Seg Neutrophils # Seg Neutrophils # Man Monocytes # (Manual) PT INR APTT D-Dimer Heparin Anti-Xa Level ABG pH ABG pO2 69.5 L ABG O2 Saturation ABG Base Excess -2.7 L ABG Hemoglobin Oxyhemoglobin 94.7 L Sodium Potassium Chloride Carbon Dioxide 21 L BUN Creatinine Glucose 159 H POC Glucose 151 H Hemoglobin A1c Lactic Acid Calcium 7.9 L D Magnesium Ferritin AST 461 H ALT 686 H Alkaline Phosphatase 130 H Lactate Dehydrogenase Troponin T C-Reactive Protein Total Protein 5.6 L D Albumin 3.2 L LDL Cholesterol Direct Urine Creatinine Salicylates Acetaminophen 10/30/21 10/30/21 10/30/21 11:24 15:59 16:30 WBC RBC Hgb Hct MCH RDW Plt Count Lymph % (Auto) Lymph # (Auto) [place] # (Auto) Seg Neutrophils % Seg Neuts % (Manual) Lymphocytes % (Manual) Seg Neutrophils # Seg Neutrophils # Man Monocytes # (Manual) PT 17.2 H INR 1.27 H APTT 44.4 H D-Dimer Heparin Anti-Xa Level ABG pH ABG pO2 ABG O2 Saturation ABG Base Excess ABG Hemoglobin Oxyhemoglobin Sodium Potassium Chloride Carbon Dioxide BUN Creatinine Glucose POC Glucose 153 H 109 H Hemoglobin A1c Lactic Acid Calcium Magnesium Ferritin AST ALT Alkaline Phosphatase Lactate Dehydrogenase Troponin T C-Reactive Protein Total Protein Albumin LDL Cholesterol Direct Urine Creatinine Salicylates Acetaminophen 10/30/21 10/30/21 10/30/21 23:00 Unknown Unknown WBC RBC Hgb Hct MCH RDW Plt Count Lymph % (Auto) Lymph # (Auto) [place] # (Auto) Seg Neutrophils % Seg Neuts % (Manual) Lymphocytes % (Manual) Seg Neutrophils # Seg Neutrophils # Man Monocytes # (Manual) PT INR APTT D-Dimer > 48960 H Heparin Anti-Xa Level 0.82 H ABG pH ABG pO2 ABG O2 Saturation ABG Base Excess ABG Hemoglobin Oxyhemoglobin Sodium Potassium Chloride Carbon Dioxide BUN Creatinine Glucose POC Glucose Hemoglobin A1c Lactic Acid Calcium Magnesium Ferritin 208.4 H AST ALT Alkaline Phosphatase Lactate Dehydrogenase Troponin T C-Reactive Protein Total Protein Albumin LDL Cholesterol Direct Urine Creatinine Salicylates Acetaminophen 10/30/21 10/31/21 10/31/21 Unknown 04:30 04:30 WBC 14.4 H RBC Hgb Hct MCH 26 L RDW Plt Count Lymph % (Auto) Lymph # (Auto) [place] # (Auto) Seg Neutrophils % Seg Neuts % (Manual) Lymphocytes % (Manual) Seg Neutrophils # Seg Neutrophils # Man Monocytes # (Manual) PT INR APTT D-Dimer Heparin Anti-Xa Level ABG pH ABG pO2 ABG O2 Saturation ABG Base Excess ABG Hemoglobin Oxyhemoglobin Sodium Potassium 3.5 L Chloride 107.5 H Carbon Dioxide 20 L BUN 28 H Creatinine 1.7 H Glucose 113 H POC Glucose Hemoglobin A1c Lactic Acid Calcium 7.9 L Magnesium Ferritin AST ALT Alkaline Phosphatase Lactate Dehydrogenase 469 H Troponin T C-Reactive Protein 13.40 H Total Protein Albumin LDL Cholesterol Direct Urine Creatinine Salicylates Acetaminophen 10/31/21 10/31/21 10/31/21 04:30 05:11 15:30 WBC RBC Hgb Hct MCH RDW Plt Count Lymph % (Auto) Lymph # (Auto) [place] # (Auto) Seg Neutrophils % Seg Neuts % (Manual) Lymphocytes % (Manual) Seg Neutrophils # Seg Neutrophils # Man Monocytes # (Manual) PT INR APTT D-Dimer Heparin Anti-Xa Level ABG pH 7.222 L ABG pO2 61.5 L ABG O2 Saturation 86.2 L ABG Base Excess -6.3 L ABG Hemoglobin 11.2 L Oxyhemoglobin 84.5 L Sodium Potassium Chloride Carbon Dioxide BUN Creatinine Glucose POC Glucose 106 H Hemoglobin A1c 6.7 H Lactic Acid Calcium Magnesium Ferritin AST ALT Alkaline Phosphatase Lactate Dehydrogenase Troponin T C-Reactive Protein Total Protein Albumin LDL Cholesterol Direct Urine Creatinine Salicylates Acetaminophen 10/31/21 10/31/21 10/31/21 16:07 16:35 17:45 WBC RBC Hgb Hct MCH RDW Plt Count Lymph % (Auto) Lymph # (Auto) [place] # (Auto) Seg Neutrophils % Seg Neuts % (Manual) Lymphocytes % (Manual) Seg Neutrophils # Seg Neutrophils # Man Monocytes # (Manual) PT INR APTT D-Dimer Heparin Anti-Xa Level ABG pH 7.267 L ABG pO2 58.3 L ABG O2 Saturation 88.3 L ABG Base Excess -5.9 L ABG Hemoglobin 10.1 L Oxyhemoglobin 86.5 L Sodium Potassium Chloride Carbon Dioxide BUN Creatinine Glucose POC Glucose 115 H Hemoglobin A1c Lactic Acid Calcium Magnesium Ferritin AST ALT Alkaline Phosphatase Lactate Dehydrogenase Troponin T C-Reactive Protein Total Protein Albumin LDL Cholesterol Direct Urine Creatinine 383.6 H Salicylates Acetaminophen 11/01/21 11/01/21 11/01/21 00:06 05:08 06:00 WBC 12.6 H RBC 3.43 L Hgb 8.9 L Hct 28.7 L MCH 26 L RDW 15.7 H Plt Count 130 L Lymph % (Auto) Lymph # (Auto) [place] # (Auto) Seg Neutrophils % Seg Neuts % (Manual) Lymphocytes % (Manual) Seg Neutrophils # Seg Neutrophils # Man Monocytes # (Manual) PT INR APTT D-Dimer Heparin Anti-Xa Level ABG pH ABG pO2 ABG O2 Saturation ABG Base Excess ABG Hemoglobin Oxyhemoglobin Sodium Potassium Chloride Carbon Dioxide BUN Creatinine Glucose POC Glucose 114 H 120 H Hemoglobin A1c Lactic Acid Calcium Magnesium Ferritin AST ALT Alkaline Phosphatase Lactate Dehydrogenase Troponin T C-Reactive Protein Total Protein Albumin LDL Cholesterol Direct Urine Creatinine Salicylates Acetaminophen 11/01/21 11/01/21 11/01/21 06:00 11:43 14:00 WBC RBC Hgb Hct MCH RDW Plt Count Lymph % (Auto) Lymph # (Auto) [place] # (Auto) Seg Neutrophils % Seg Neuts % (Manual) Lymphocytes % (Manual) Seg Neutrophils # Seg Neutrophils # Man Monocytes # (Manual) PT INR APTT D-Dimer Heparin Anti-Xa Level ABG pH 7.349 L ABG pO2 75.6 L ABG O2 Saturation ABG Base Excess -3.9 L ABG Hemoglobin 9.8 L Oxyhemoglobin 93.5 L Sodium Potassium Chloride 114.1 H Carbon Dioxide 20 L BUN 33 H Creatinine Glucose 131 H POC Glucose 151 H Hemoglobin A1c Lactic Acid Calcium 7.7 L Magnesium Ferritin AST 79 H ALT 259 H Alkaline Phosphatase Lactate Dehydrogenase Troponin T C-Reactive Protein Total Protein 5.5 L Albumin 2.7 L LDL Cholesterol Direct Urine Creatinine Salicylates Acetaminophen 11/01/21 11/01/21 11/02/21 16:45 22:55 05:12 WBC RBC Hgb Hct MCH RDW Plt Count Lymph % (Auto) Lymph # (Auto) [place] # (Auto) Seg Neutrophils % Seg Neuts % (Manual) Lymphocytes % (Manual) Seg Neutrophils # Seg Neutrophils # Man Monocytes # (Manual) PT INR APTT D-Dimer Heparin Anti-Xa Level ABG pH ABG pO2 ABG O2 Saturation ABG Base Excess ABG Hemoglobin Oxyhemoglobin Sodium Potassium Chloride Carbon Dioxide BUN Creatinine Glucose POC Glucose 119 H 129 H 140 H Hemoglobin A1c Lactic Acid Calcium Magnesium Ferritin AST ALT Alkaline Phosphatase Lactate Dehydrogenase Troponin T C-Reactive Protein Total Protein Albumin LDL Cholesterol Direct Urine Creatinine Salicylates Acetaminophen 11/02/21 11/02/21 11/02/21 05:35 05:35 09:35 WBC 13.5 H RBC 3.60 L Hgb 9.7 L Hct MCH 27 L RDW 15.7 H Plt Count Lymph % (Auto) Lymph # (Auto) [place] # (Auto) Seg Neutrophils % Seg Neuts % (Manual) Lymphocytes % (Manual) Seg Neutrophils # Seg Neutrophils # Man Monocytes # (Manual) PT INR APTT D-Dimer Heparin Anti-Xa Level ABG pH 7.208 L ABG pO2 75.9 L ABG O2 Saturation 93.6 L ABG Base Excess -4.3 L ABG Hemoglobin 9.1 L Oxyhemoglobin 91.6 L Sodium Potassium 5.2 H D Chloride 112.6 H Carbon Dioxide BUN 32 H Creatinine Glucose 152 H POC Glucose Hemoglobin A1c Lactic Acid Calcium 8.2 L Magnesium 2.70 H Ferritin AST ALT Alkaline Phosphatase Lactate Dehydrogenase Troponin T C-Reactive Protein Total Protein Albumin LDL Cholesterol Direct Urine Creatinine Salicylates Acetaminophen 11/02/21 11/02/21 11/02/21 11:44 17:13 23:43 WBC RBC Hgb Hct MCH RDW Plt Count Lymph % (Auto) Lymph # (Auto) [place] # (Auto) Seg Neutrophils % Seg Neuts % (Manual) Lymphocytes % (Manual) Seg Neutrophils # Seg Neutrophils # Man Monocytes # (Manual) PT INR APTT D-Dimer Heparin Anti-Xa Level ABG pH ABG pO2 ABG O2 Saturation ABG Base Excess ABG Hemoglobin Oxyhemoglobin Sodium Potassium Chloride Carbon Dioxide BUN Creatinine Glucose POC Glucose 173 H 148 H 137 H Hemoglobin A1c Lactic Acid Calcium Magnesium Ferritin AST ALT Alkaline Phosphatase Lactate Dehydrogenase Troponin T C-Reactive Protein Total Protein Albumin LDL Cholesterol Direct Urine Creatinine Salicylates Acetaminophen 11/03/21 11/03/21 11/03/21 04:59 06:00 06:00 WBC RBC 3.43 L Hgb 9.1 L Hct 29.0 L MCH 26 L RDW 16.4 H Plt Count Lymph % (Auto) Lymph # (Auto) [place] # (Auto) Seg Neutrophils % Seg Neuts % (Manual) Lymphocytes % (Manual) Seg Neutrophils # Seg Neutrophils # Man Monocytes # (Manual) PT INR APTT D-Dimer Heparin Anti-Xa Level 0.17 L ABG pH ABG pO2 ABG O2 Saturation ABG Base Excess ABG Hemoglobin Oxyhemoglobin Sodium Potassium Chloride Carbon Dioxide BUN Creatinine Glucose POC Glucose 167 H Hemoglobin A1c Lactic Acid Calcium Magnesium Ferritin AST ALT Alkaline Phosphatase Lactate Dehydrogenase Troponin T C-Reactive Protein Total Protein Albumin LDL Cholesterol Direct Urine Creatinine Salicylates Acetaminophen 11/03/21 11/03/21 06:00 09:20 WBC RBC Hgb Hct MCH RDW Plt Count Lymph % (Auto) Lymph # (Auto) [place] # (Auto) Seg Neutrophils % Seg Neuts % (Manual) Lymphocytes % (Manual) Seg Neutrophils # Seg Neutrophils # Man Monocytes # (Manual) PT INR APTT D-Dimer Heparin Anti-Xa Level ABG pH 7.274 L ABG pO2 75.6 L ABG O2 Saturation 94.9 L ABG Base Excess -2.5 L ABG Hemoglobin 9.3 L Oxyhemoglobin 92.9 L Sodium 149 H Potassium Chloride 117.5 H Carbon Dioxide BUN 32 H Creatinine Glucose 173 H POC Glucose Hemoglobin A1c Lactic Acid Calcium 8.1 L Magnesium Ferritin AST ALT Alkaline Phosphatase Lactate Dehydrogenase Troponin T C-Reactive Protein Total Protein Albumin LDL Cholesterol Direct Urine Creatinine Salicylates Acetaminophen Chest x-ray: image reviewed (low lung volumes; chest tube in place) Allied health notes reviewed: nursing
[2021-11-03] MEDS: ACETAMINOPHEN 325 MG TAB PO PRN (11:35)
--- NOTE | 2021-11-03 11:47 | Progress Note ---
Assessment and Plan Patient is a 66-year-old female with unknown past medical history brought into the ED following outside of hospital cardiac arrest thought to be PEA with thought to have downtime of 7 to 9 minutes however details are unclear S/P PEA cardiopulmonary arrest-currently on pressors Acute hypoxic respiratory failure-pulm following Septic shock Aspiration pneumonia Pneumothorax- s/p CT Acute DVT-on Heparin gtt Hypokalemia Transaminitis Echo 10/30/2021-technically difficult study due to body habitus. EF 25 to 30%. Right ventricular systolic function is normal. No pericardial effusion Plan: Patient went to A. fib/a flutter with RVR overnight rate and was given cardizem without achieving rate control. Rate is currently in 150s No cardizem due to low BP and low EF. Initiate amiodarone bolus and drip Due to low blood pressures patient currently requiring pressors. Wean as tolerated No beta-blockers due patient requiring pressors No LAYO/ ARB due to elevated creatinine and soft BP Patient currently anticoagulated on heparin drip Patient seen in conjunction with Dr. Cueto who agrees with this plan of care 30minutes of critical care time spent in coordination of care of patient - Patient Problems (1) Cardiopulmonary arrest Current Visit: Yes Status: Acute (2) Hypokalemia Current Visit: Yes Status: Acute (3) Transaminitis Current Visit: Yes Status: Acute (4) Aspiration pneumonia Current Visit: Yes Status: Acute (5) Acute hypoxemic respiratory failure Current Visit: Yes Status: Acute (6) Septic shock Current Visit: Yes Status: Acute (7) Toxic metabolic encephalopathy Current Visit: Yes Status: Acute (8) Shock liver Current Visit: Yes Status: Acute Subjective Date of service: 11/03/21 Principal diagnosis: AHRF; Cardiac arrest; R. pneumothorax; pneumonia; AMS; DVT's; SIERRA; Obesity Interval history: Patient remains intubated and sedated Patient patient went into A. fib with RVR/a flutter overnight with rate into 150s Objective Vital Signs Temp Pulse Pulse Resp BP Pulse Ox 11/03/21 11:00 154 H 14 102/53 94 11/03/21 10:45 156 H 15 106/60 96 11/03/21 10:30 156 H 16 99/52 95 11/03/21 10:15 156 H 15 102/51 95 11/03/21 10:00 156 H 16 102/41 94 11/03/21 09:45 155 H 15 107/65 94 11/03/21 09:30 158 H 14 103/63 96 11/03/21 09:16 158 H 14 100/70 95 11/03/21 09:00 155 H 14 103/68 95 11/03/21 08:46 141 H 14 96/55 95 11/03/21 08:30 131 H 15 109/71 94 11/03/21 08:16 152 H 16 109/71 100 11/03/21 08:00 102.2 F H 98 H 155 H 15 89/54 96 11/03/21 07:45 152 H 14 104/76 96 11/03/21 07:30 83 14 89/57 96 11/03/21 07:16 82 14 91/54 95 11/03/21 07:00 131 H 14 118/56 95 11/03/21 06:46 139 H 14 112/59 94 11/03/21 06:30 123 H 14 108/52 94 11/03/21 06:15 117 H 14 105/51 94 11/03/21 06:00 110 H 14 112/52 94 11/03/21 05:45 106 H 14 98/46 94 11/03/21 05:30 83 14 95/55 95 11/03/21 05:15 80 14 90/50 97 11/03/21 05:12 155 H 11/03/21 05:00 155 H 14 94/60 96 11/03/21 04:46 155 H 14 94/60 96 11/03/21 04:30 155 H 14 94/60 96 11/03/21 04:16 154 H 14 94/60 96 11/03/21 04:15 108 H 97/54 99 11/03/21 04:00 98.0 F 154 H 155 H 14 91/62 96 11/03/21 03:45 153 H 14 95/64 96 11/03/21 03:30 137 H 14 100/61 96 11/03/21 03:15 130 H 14 88/56 96 11/03/21 03:00 151 H 14 89/59 96 11/03/21 02:45 137 H 14 106/64 96 11/03/21 02:30 128 H 14 106/61 96 11/03/21 02:15 120 H 14 98/59 96 11/03/21 02:00 128 H 14 107/62 96 11/03/21 01:45 151 H 14 101/64 96 11/03/21 01:30 117 H 14 102/55 97 11/03/21 01:16 112 H 14 107/55 97 11/03/21 01:00 118 H 14 103/57 97 11/03/21 00:45 117 H 14 97/56 97 11/03/21 00:30 117 H 14 100/55 97 11/03/21 00:22 117 H 95/52 97 11/03/21 00:15 117 H 14 95/52 97 11/03/21 00:01 110 H 14 89/54 97 11/03/21 00:00 109 H 119 H 14 89/54 97 11/02/21 23:59 98.9 F 11/02/21 23:45 152 H 14 103/56 96 11/02/21 23:43 153 H 90/53 11/02/21 23:30 152 H 14 90/53 96 11/02/21 23:15 152 H 14 92/62 96 11/02/21 23:00 153 H 14 95/56 96 11/02/21 22:45 152 H 14 87/57 96 11/02/21 22:30 152 H 14 94/50 96 11/02/21 22:15 148 H 14 81/54 96 11/02/21 22:00 147 H 14 84/48 95 11/02/21 21:46 153 H 14 102/62 96 11/02/21 21:30 153 H 14 98/64 96 11/02/21 21:15 154 H 14 101/58 96 11/02/21 21:00 157 H 14 103/57 96 11/02/21 20:45 130 H 14 110/70 97 11/02/21 20:30 129 H 14 115/73 97 11/02/21 20:15 128 H 14 96/62 97 11/02/21 20:00 98.3 F 128 H 14 105/62 97 11/02/21 19:45 130 H 14 105/63 96 11/02/21 19:34 127 H 100/61 97 11/02/21 19:30 126 H 14 100/61 97 11/02/21 19:15 126 H 14 95/56 97 11/02/21 19:00 128 H 14 99/58 97 11/02/21 18:45 129 H 14 99/58 96 11/02/21 18:30 130 H 14 105/61 96 11/02/21 18:15 128 H 14 97/53 96 11/02/21 18:00 141 H 14 95/68 95 11/02/21 17:45 107 H 14 103/59 96 11/02/21 17:30 103 H 14 102/56 96 11/02/21 17:15 104 H 14 99/57 96 11/02/21 17:00 108 H 13 102/60 96 11/02/21 16:45 110 H 15 112/63 97 11/02/21 16:30 115 H 14 108/70 95 11/02/21 16:20 105 H 99/57 96 11/02/21 16:15 117 H 19 106/53 95 11/02/21 16:00 100.7 F H 103 H 14 102/59 92 11/02/21 15:45 109 H 14 113/62 97 11/02/21 15:30 106 H 14 107/62 96 11/02/21 15:15 105 H 14 105/60 96 11/02/21 15:00 107 H 14 95/57 95 11/02/21 14:46 126 H 14 140/80 97 11/02/21 14:30 109 H 14 107/65 97 11/02/21 14:15 104 H 14 99/57 96 11/02/21 14:00 105 H 14 106/63 97 11/02/21 13:45 102 H 14 108/54 97 11/02/21 13:30 104 H 14 102/58 96 11/02/21 13:15 104 H 15 104/62 96 11/02/21 13:00 100 H 14 93/60 96 11/02/21 12:45 106 H 14 94/58 97 11/02/21 12:30 102 H 14 94/54 97 11/02/21 12:15 106 H 14 101/58 95 11/02/21 12:10 103 H 108/54 97 11/02/21 12:00 99.2 F 110 H 18 87/56 92 - Physical Examination General: Other (Intubated and sedated) HEENT: Positive: Normocephaly Neck: Positive: trachea midline Cardiac: Positive: irregularly irregular, Tachycardia Lungs: Positive: Ventilated Respirations Neuro: Positive: Other (Unable to assess due to intubation sedated) Abdomen: Positive: Soft Skin: Negative: Rash, Suspicious Lesions Extremities: Present: upper extr. pulses, edema - Labs and Meds CBC 11/03/21 Range/Units 06:00 WBC 9.5 (4.5-11.0) K/mm3 RBC 3.43 L (3.65-5.03) M/mm3 Hgb 9.1 L (10.1-14.3) gm/dl Hct 29.0 L (30.3-42.9) % Plt Count 181 (140-440) K/mm3 Comprehensive Metabolic Panel 11/03/21 Range/Units 06:00 Sodium 149 H (137-145) mmol/L Potassium 5.0 (3.6-5.0) mmol/L Chloride 117.5 H (98-107) mmol/L Carbon Dioxide 22 (22-30) mmol/L BUN 32 H (7-17) mg/dL Creatinine 1.2 (0.6-1.2) mg/dL Glucose 173 H (65-100) mg/dL Calcium 8.1 L (8.4-10.2) mg/dL - Imaging and Cardiology Echo: report reviewed - Telemetry EKG Rhythm: Atrial Fibrillation - EKG Supraventricular dysrhythmia: atrial fibrillation Ventricular dysrhythmias: ventricular premature com - Allied health notes Allied health notes reviewed: nursing
[2021-11-03] MEDS: AMIODARONE 900 MG in DEXTROSE 5% IN WATER 482 ML IV SCH (11:56)
[2021-11-03] MEDS: NORepinephrine/NS 8 MG-250 ML 8 MG/250 ML INFUS..BTL IV SCH (12:30)
[2021-11-03] MEDS ORDERED: MAGNESIUM CITRATE 300 ML ORAL LIQD PO ONE (13:00)
[2021-11-03] MEDS ORDERED: AMIODARONE 150 MG in DEXTROSE 5% IN WATER 97 ML IV SCH (15:00)
[2021-11-03] MEDS: diphenhydrAMINE 50 MG/ML VIAL IV SCH (15:05)
[2021-11-03] MEDS: methylPREDNISolone Sod Succinate 40 MG/1 ML INJ IV SCH ×2 (15:08→22:22)
--- NOTE | 2021-11-03 15:23 | Progress Note ---
Assessment and Plan Assessment and plan: This is a 66-year-old female with past medical history of HTN and Obesity admitted for septic shock, s/p cardiac arrest with ROSC in the field now intubated and on ventilatory support Neuro: Acute Metabolic encephalopathy -Avoid delirium -Reorientation as needed -Sedated with fentanyl -High to be restarted and uptitrated due to agitation -RASS goal 0 to -1 -As needed analgesia and haldol -Seroquel started 11/01 -Maintain sleep-wake cycle -CT head no acute focal parenchymal lesion in the brain Cardiac: Atrial fibrillation/atrial flutter s/p cardiac arrest, HFrEF, hypotension, h/o htn -Outside hospital cardiac arrest with ROSC -Cardiology consulted, appreciate recommendations -vasopressor support with levophed -map goal >65 -Echocardiogram shows left ventricular systolic function severely decreased, LVEF 25 to 30%, no pericardial effusion -proBNP 5622 -BP monitoring per protocol -hold home antihtn regimen -Amiodarone bolus with drip Respiratory: Acute hypoxic/hypercapnic respiratory failure, right pneumothorax -CCM consulted, appreciate recommendations -A.m. vent settings: Assist-control rate 12, tidal volume 500, PEEP 8, FiO2 40% -See RT notes for titration -AM CXR and ABG noted -VAP bundle -SPO2 monitoring -Right chest tube to wall suction -Past 24 hours drainage: 160 mL GI: Protein calorie malnutrion, transaminitis likely shocked liver -24 hours + 264 mL -PPI -NTR consulted for tube feedings -Trend LFTs -No BM recorded since admit -Mag citrate : Acute kidney injury likely secondary to vasomotor nephropathy -Cr increased to 1.7 -Strict intake and output -Gregory catheter discontinued 11/03 -Renally dose medications -Avoid nephrotoxic medications -Daily weights -FWF -Trend BMP -FeNa 0.05 indicated pre-renal -Consider nephrology consult and renal ultrasound if worsen -MIVF per [facility] ID: Septic shock -COVID-19 PCR negative -Antibiotic therapy with Rocephin and azithromycin () -Levophed gtt for hypotension -Follow-up culture data -Monitor WBC and temperature curve Endo: Hyperglycemia -Avoid hypoglycemia -Hbg A1C 6.7 -SSI -Accu-Cheks q. 6 Heme: Acute DVT in the left posterior tibial vein and bilateral peroneal veins, Leukocytosis -D-dimer greater than 10,000 -CTA chest with no evidence of PE -Bilateral lower extremity ultrasound positive for DVT -Heparin gtt -Trend CBC -SCDs to BLE while in bed -Transfuse hemoglobin less than 7 -Monitor for signs of bleeding -Bloody drainage noted from oett when suctioned The high probability of a clinically significant, sudden or life threatening deterioration of the [multi] system(s) required my full and direct attention, intervention and personal management. The aggregate critical care time was [90] minutes. This time is in addition to time spent performing reported procedures but includes the following: [x] Data Review and interpretation [x] Patient assessment and monitoring of vital signs [x] Documentation [x] Medication orders and management Disposition Plan: icu Total Time Spent with Patient (Minutes): 90 History Interval history: This is a 66-year-old female with HTN and obesity who presented to the hospital on 10/29 via EMS with s/p cardiac arrest with CPR initiated by bystanders and upon EMS arrival a David airway was placed and ACLS was initiated. Patient had ROSC after 5-7 minutes and was started on epinephrine in route for hemodynamic support. Upon arrival to the emergency department patient GCS was noted to be 3 and she was biting the endotracheal tube with dilated pupils and copious vomitus and gastric secretions in the oropharynx/mouth/neck. David airway was removed and patient was intubated in the emergency department. Patient was admitted to the hospitalist service s/p cardiac arrest on sepsis and pneumonia protocol with consults to [facility]. Cardiology was consulted upon arrival to ICU. Hospital Course to Date: 10/30: Intubated and sedated, on fentanyl gtt. Open eyes spontaneously but does not follow any commands. On vasopressors, titrate as tolerated for MAP above 65. Patient febrile overnight, continue empiric IV Abx, culture data and COVID PCR pending. Patient is also s/p CT placement due to spontaneous pneumothorax. 2D echo is pending and Cardiology is consulted. 10/31: Patient remains intubated and following commands. Levophed drip stopped and potassium repleted. Patient started on tube feeding. Remains in soft bilateral restraints. 11/01: RN noted ST changes on BSM and 12 lead EKG obtained which showed ST. Given Ativan 1mg for agitation as she is maxed on fentanyl drip and IV push fentanyl did not seem to help. Patient was started on CPAP this morning by RT but remained on fentanyl drip and was having periods of apnea. Plan was to retry CPAP again in the p.m. with sedation off. 11/02: Rate increased r/t hypercapnea on ABG, sedation reduced. Given kionex for hyperkalemia and was started on levophed overnight for hypotension. 11/03: Overnight patient had tachycardia and was given Cardizem and Lopressor. Lopressor was repeated in the a.m. due to tachycardia. Patient will be started on amiodarone with a bolus per cardiology. Patient started on normal saline per liter per CCM and steroids for angioedema. Noted to have bright red blood when suctioned from [place] ETT. Remains on heparin drip as H/H is stable for now. Will reevaluate. Fentanyl drip was restarted last night due to agitation. Dr. Flores updated family today Hospitalist Physical - Constitutional Vitals: Temp Pulse Resp BP Pulse Ox 101 F H 147 H 15 86/63 96 11/03/21 12:00 11/03/21 14:45 11/03/21 14:45 11/03/21 14:45 11/03/21 14:45 General appearance: Present: no acute distress, obese, other (Intubated and Sedated) - EENT Eyes: Present: PERRL ENT: clear oral mucosa - Neck Neck: Present: normal ROM - Respiratory Respiratory effort: normal Respiratory: bilateral: diminished - Cardiovascular Rhythm: regular Heart Sounds: Present: S1 & S2. Absent: systolic murmur, diastolic murmur - Extremities Extremities: no ischemia, pulses intact, pulses symmetrical Extremity abnormal: edema Peripheral Pulses: within normal limits - Abdominal General gastrointestinal: soft, non-tender, non-distended, normal bowel sounds - Integumentary Integumentary: Present: warm, dry - Psychiatric Psychiatric: other (sedated) - Neurologic Neurologic: other (sedated) - Allied Health Allied health notes reviewed: nursing, RT, social work HEART Score - HEART Score Troponin: Troponin T 1.150 ng/mL (0.00-0.029) H* D 10/29/21 22:34 Results - Labs CBC & Chem 7: 11/03/21 06:00 11/03/21 06:00 Labs: Laboratory Last Values WBC 9.5 K/mm3 (4.5-11.0) 11/03/21 06:00 RBC 3.43 M/mm3 (3.65-5.03) L 11/03/21 06:00 Hgb 9.1 gm/dl (10.1-14.3) L 11/03/21 06:00 Hct 29.0 % (30.3-42.9) L 11/03/21 06:00 MCV 85 fl (79-97) 11/03/21 06:00 MCH 26 pg (28-32) L 11/03/21 06:00 MCHC 31 % (30-34) 11/03/21 06:00 RDW 16.4 % (13.2-15.2) H 11/03/21 06:00 Plt Count 181 K/mm3 (140-440) 11/03/21 06:00 Lymph % (Auto) 6.2 % (13.4-35.0) L 10/30/21 04:30 Carver % (Auto) 5.5 % (0.0-7.3) 10/30/21 04:30 Eos % (Auto) 0.1 % (0.0-4.3) 10/30/21 04:30 Baso % (Auto) 0.1 % (0.0-1.8) 10/30/21 04:30 Lymph # (Auto) 1.0 K/mm3 (1.2-5.4) L 10/30/21 04:30 Carver # (Auto) 0.9 K/mm3 (0.0-0.8) H 10/30/21 04:30 Eos # (Auto) 0.0 K/mm3 (0.0-0.4) 10/30/21 04:30 Baso # (Auto) 0.0 K/mm3 (0.0-0.1) 10/30/21 04:30 Add Manual Diff Complete 10/29/21 15:10 Total Counted 100 10/29/21 15:10 Seg Neutrophils % 88.1 % (40.0-70.0) H 10/30/21 04:30 Seg Neuts % (Manual) 78.0 % (40.0-70.0) H 10/29/21 15:10 Band Neutrophils % 5.0 % 10/29/21 15:10 Lymphocytes % (Manual) 10.0 % (13.4-35.0) L 10/29/21 15:10 Reactive Lymphs % (Man) 0 % 10/29/21 15:10 Monocytes % (Manual) 5.0 % (0.0-7.3) 10/29/21 15:10 Eosinophils % (Manual) 0 % (0.0-4.3) 10/29/21 15:10 Basophils % (Manual) 0 % (0.0-1.8) 10/29/21 15:10 Metamyelocytes % 2.0 % 10/29/21 15:10 Myelocytes % 0 % 10/29/21 15:10 Promyelocytes % 0 % 10/29/21 15:10 Blast Cells % 0 % 10/29/21 15:10 Nucleated RBC % Not Reportable 10/29/21 15:10 Seg Neutrophils # 14.2 K/mm3 (1.8-7.7) H 10/30/21 04:30 Seg Neutrophils # Man 21.7 K/mm3 (1.8-7.7) H 10/29/21 15:10 Band Neutrophils # 1.4 K/mm3 10/29/21 15:10 Lymphocytes # (Manual) 2.8 K/mm3 (1.2-5.4) 10/29/21 15:10 Abs React Lymphs (Man) 0.0 K/mm3 10/29/21 15:10 Monocytes # (Manual) 1.4 K/mm3 (0.0-0.8) H 10/29/21 15:10 Eosinophils # (Manual) 0.0 K/mm3 (0.0-0.4) 10/29/21 15:10 Basophils # (Manual) 0.0 K/mm3 (0.0-0.1) 10/29/21 15:10 Metamyelocytes # 0.6 K/mm3 10/29/21 15:10 Myelocytes # 0.0 K/mm3 10/29/21 15:10 Promyelocytes # 0.0 K/mm3 10/29/21 15:10 Blast Cells # 0.0 K/mm3 10/29/21 15:10 WBC Morphology Not Reportable 10/29/21 15:10 Hypersegmented Neuts Not Reportable 10/29/21 15:10 Hyposegmented Neuts Not Reportable 10/29/21 15:10 Hypogranular Neuts Not Reportable 10/29/21 15:10 Smudge Cells Not Reportable 10/29/21 15:10 Toxic Granulation Not Reportable 10/29/21 15:10 Toxic Vacuolation Not Reportable 10/29/21 15:10 Dohle Bodies Not Reportable 10/29/21 15:10 Pelger-Huet Anomaly Not Reportable 10/29/21 15:10 Manny Rods Not Reportable 10/29/21 15:10 Platelet Estimate Consistent w auto 10/29/21 15:10 Clumped Platelets Not Reportable 10/29/21 15:10 Plt Clumps, EDTA Not Reportable 10/29/21 15:10 Large Platelets Not Reportable 10/29/21 15:10 Giant Platelets Not Reportable 10/29/21 15:10 Platelet Satelliting Not Reportable 10/29/21 15:10 Plt Morphology Comment Not Reportable 10/29/21 15:10 RBC Morphology Not Reportable 10/29/21 15:10 Dimorphic RBCs Not Reportable 10/29/21 15:10 Polychromasia Not Reportable 10/29/21 15:10 Hypochromasia Not Reportable 10/29/21 15:10 Poikilocytosis 1+ 10/29/21 15:10 Anisocytosis Not Reportable 10/29/21 15:10 Microcytosis 1+ 10/29/21 15:10 Macrocytosis Not Reportable 10/29/21 15:10 Spherocytes Not Reportable 10/29/21 15:10 Pappenheimer Bodies Not Reportable 10/29/21 15:10 Sickle Cells Not Reportable 10/29/21 15:10 Target Cells Not Reportable 10/29/21 15:10 Tear Drop Cells Not Reportable 10/29/21 15:10 Ovalocytes Few 10/29/21 15:10 Helmet Cells Not Reportable 10/29/21 15:10 Maradiaga-Emily Bodies Not Reportable 10/29/21 15:10 [place] Rings Not Reportable 10/29/21 15:10 Cambria Cells Not Reportable 10/29/21 15:10 Bite Cells Not Reportable 10/29/21 15:10 Crenated Cell Not Reportable 10/29/21 15:10 Elliptocytes Few 10/29/21 15:10 Acanthocytes (Spur) Not Reportable 10/29/21 15:10 Rouleaux Not Reportable 10/29/21 15:10 Hemoglobin C Crystals Not Reportable 10/29/21 15:10 Schistocytes Not Reportable 10/29/21 15:10 Malaria parasites Not Reportable 10/29/21 15:10 Magdy Bodies Not Reportable 10/29/21 15:10 Hem Pathologist Commnt No 10/29/21 15:10 PT 17.2 Sec. (12.2-14.9) H 10/30/21 16:30 INR 1.27 (0.87-1.13) H 10/30/21 16:30 APTT 44.4 Sec. (24.2-36.6) H 10/30/21 16:30 D-Dimer > 93432 ng/mlDDU (0-234) H 10/30/21 Unknown Heparin Anti-Xa Level 0.29 U.I./ml (0.3-0.7) L 11/03/21 Unknown ABG pH 7.274 pH Units (7.350-7.450) L 11/03/21 09:20 ABG pCO2 54.3 mm Hg 11/03/21 09:20 ABG pO2 75.6 mm Hg (80.0-90.0) L 11/03/21 09:20 ABG HCO3 24.6 mmol/L (20.0-26.0) 11/03/21 09:20 ABG O2 Saturation 94.9 % (95.0-99.0) L 11/03/21 09:20 ABG O2 Content 12.2 (0.0-44) 11/03/21 09:20 ABG Base Excess -2.5 mmol/L (-2.0-3.0) L 11/03/21 09:20 ABG Hemoglobin 9.3 gm/dl (12.0-16.0) L 11/03/21 09:20 ABG Carboxyhemoglobin 1.5 % (0.0-5.0) 11/03/21 09:20 ABG Methemoglobin 0.6 % (0.0-1.5) 11/03/21 09:20 Oxyhemoglobin 92.9 % (95.0-99.0) L 11/03/21 09:20 FiO2 40 % 11/03/21 09:20 Sodium 149 mmol/L (137-145) H 11/03/21 06:00 Potassium 5.0 mmol/L (3.6-5.0) 11/03/21 06:00 Chloride 117.5 mmol/L (98-107) H 11/03/21 06:00 Carbon Dioxide 22 mmol/L (22-30) 11/03/21 06:00 Anion Gap 15 mmol/L 11/03/21 06:00 BUN 32 mg/dL (7-17) H 11/03/21 06:00 Creatinine 1.2 mg/dL (0.6-1.2) 11/03/21 06:00 Estimated GFR 54 ml/min 11/03/21 06:00 BUN/Creatinine Ratio 27 % 11/03/21 06:00 Glucose 173 mg/dL (65-100) H 11/03/21 06:00 POC Glucose 192 mg/dL (70-105) H 11/03/21 11:58 Hemoglobin A1c 6.7 % (4-6) H 10/31/21 04:30 Lactic Acid 0.70 mmol/L (0.7-2.0) 10/31/21 15:45 Calcium 8.1 mg/dL (8.4-10.2) L 11/03/21 06:00 Phosphorus 4.40 mg/dL (2.5-4.5) 11/02/21 05:35 Magnesium 2.70 mg/dL (1.7-2.3) H 11/02/21 05:35 Ferritin 208.4 ng/mL (10.0-200.0) H 10/30/21 Unknown Total Bilirubin 0.30 mg/dL (0.1-1.2) 11/01/21 06:00 AST 79 units/L (5-40) H 11/01/21 06:00 ALT 259 units/L (7-56) H 11/01/21 06:00 Alkaline Phosphatase 113 units/L (35-129) 11/01/21 06:00 Ammonia 31.0 umol/L (25-60) 10/29/21 15:10 Lactate Dehydrogenase 469 units/L (91-180) H 10/30/21 Unknown Troponin T 1.150 ng/mL (0.00-0.029) H* D 10/29/21 22:34 C-Reactive Protein 13.40 mg/dL (0.00-1.30) H 10/30/21 Unknown Total Protein 5.5 g/dL (6.3-8.2) L 11/01/21 06:00 Albumin 2.7 g/dL (3.9-5) L 11/01/21 06:00 Albumin/Globulin Ratio 1.0 % 11/01/21 06:00 Triglycerides 68 mg/dL (2-149) 10/29/21 19:40 Cholesterol 98 mg/dL (50-199) 10/29/21 19:40 LDL Cholesterol Direct 43 mg/dL (50-130) L 10/29/21 19:40 HDL Cholesterol 50 mg/dL (40-59) 10/29/21 19:40 Cholesterol/HDL Ratio 1.96 % 10/29/21 19:40 Procalcitonin 61.95 ng/mL (<0.15) 10/30/21 Unknown TSH 3.080 mlU/mL (0.270-4.200) 10/29/21 15:10 Urine Color Straw (Yellow) 10/29/21 18:15 Urine Turbidity Clear (Clear) 10/29/21 18:15 Urine pH 7.0 (5.0-7.0) 10/29/21 18:15 Ur Specific [place] 1.018 (1.003-1.030) 10/29/21 18:15 Urine Protein 100 mg/dl mg/dL (Negative) 10/29/21 18:15 Urine Glucose (UA) 150 mg/dL (Negative) 10/29/21 18:15 Urine Ketones Neg mg/dL (Negative) 10/29/21 18:15 Urine Blood Mod (Negative) 10/29/21 18:15 Urine Nitrite Neg (Negative) 10/29/21 18:15 Urine Bilirubin Neg (Negative) 10/29/21 18:15 Urine Urobilinogen < 2.0 mg/dL (<2.0) 10/29/21 18:15 Ur Leukocyte Esterase Neg (Negative) 10/29/21 18:15 Urine WBC (Auto) 5.0 /HPF (0.0-6.0) 10/29/21 18:15 Urine RBC (Auto) 2.0 /HPF (0.0-6.0) 10/29/21 18:15 U Epithel Cells (Auto) < 1.0 /HPF (0-13.0) 10/29/21 18:15 Urine Mucus Few /HPF 10/29/21 18:15 Urine Creatinine 383.6 mg/dL (0.1-20.0) H 10/31/21 16:35 Urine Sodium 16 mmol/L 10/31/21 16:35 Salicylates < 0.3 mg/dL (2.8-20.0) L 10/29/21 15:10 Urine Opiates Screen Negative 10/29/21 18:15 Urine Methadone Screen Negative 10/29/21 18:15 Acetaminophen 5.0 ug/mL (10.0-30.0) L 10/29/21 15:10 Ur Barbiturates Screen Negative 10/29/21 18:15 Ur Phencyclidine Scrn Negative 10/29/21 18:15 Ur Amphetamines Screen Negative 10/29/21 18:15 U Benzodiazepines Scrn Negative 10/29/21 18:15 Urine Cocaine Screen Negative 10/29/21 18:15 U Marijuana (THC) Screen Negative 10/29/21 18:15 Drugs of Abuse Note Disclamer 10/29/21 18:15 Plasma/Serum Alcohol < 0.01 % (0-0.07) 10/29/21 15:10 Coronavirus (PCR) Negative (Negative) 10/30/21 Unknown Blood Type O POSITIVE 10/29/21 15:10 Antibody Screen Negative 10/29/21 15:10 Microbiology: Microbiology 10/29/21 Unknown Peripheral/Venous Blood Culture - Preliminary NO GROWTH AFTER 4 DAYS 10/29/21 Unknown Peripheral/Venous Blood Culture - Preliminary NO GROWTH AFTER 4 DAYS 11/01/21 09:11 Tracheal Aspirate Sputum Culture - Preliminary Gregory/IV: Voiding Method Indwelling Catheter Active Medications - Current Medications Current Medications: Generic Name Dose Route Start Last Admin Trade Name Freq PRN Reason Stop Dose Admin Acetaminophen 650 mg 10/29/21 17:04 11/03/21 11:35 Acetaminophen 325 Mg Tab PO 650 mg Q6H PRN Administration Pain, Mild (1-3) Acetaminophen 650 mg 10/29/21 17:04 Acetaminophen 650 Mg Rect Supp WI Q6H PRN Pain MILD(1-3)/Fever >100.5/NIEVES Lipase/Protease/Amylase 1 each 10/31/21 08:56 Lipase 10,500/Protease 25,000/Amylase 43,750 (Units) Dr Cap FEEDTUBE PRN PRN For Clogged Feeding Tube Dextrose 50 ml 10/30/21 15:21 Dextrose 50% In Water (25gm) 50 Ml Syringe IV Q30MIN PRN Hypoglycemia Protocol Diphenhydramine HCl 25 mg 11/03/21 15:00 11/03/21 15:05 Diphenhydramine 50 Mg/Ml Vial IV 11/06/21 03:01 25 mg Q12H RAMON Administration Famotidine 20 mg 11/03/21 22:00 Famotidine 20 Mg/2 Ml Inj IV BID RAMON Heparin Sodium (Porcine) 4,300 unit 10/30/21 17:00 Heparin 10,000 Units/10 Ml Vial 40 unit/kg (4300 unit) IV Q6H PRN Anti-Xa Assay < 0.1 units/ml Hydrophilic Ointment 1 applic 10/29/21 14:29 Lip Therapy Vaseline TP Q2HR PRN Dry Lips Fentanyl Citrate 2,000 mcg in 100 mls @ 5.67 mls/hr 10/29/21 15:00 11/03/21 11:52 Fentanyl Drip Premix IV 2 mcg/kg/hr TITR RAMON 11.34 mls/hr Administration Protocol 1 MCG/KG/HR NORepinephrine/NS 8 MG-250 ML 8 mg in 250 mls @ 3.75 mls/hr 10/29/21 15:00 11/03/21 12:30 Norepinephrine/Ns 8 Mg-250 Ml (Double Conc) IV Infused TITRATE RAMON Titration Protocol 2 MCG/MIN Heparin Sodium/Sodium Chloride 25,000 unit in 500 mls @ 30 mls/hr 10/30/21 17:00 11/03/21 14:43 Heparin/ 0.45% Nacl-25,000 Unit/500 Ml IV 1,600 units/hr TITR RAMON 32 mls/hr Titration Protocol 1,500 UNITS/HR Amiodarone HCl 900 mg/ 500 mls @ 33.333 mls/hr 11/03/21 11:00 11/03/21 11:56 Dextrose IV 1 mg/min DIRECT RAMON 33.333 mls/hr Administration Protocol 1 MG/MIN Amiodarone HCl 150 mg/ 100 mls @ 600 mls/hr 11/03/21 15:00 11/03/21 15:05 Dextrose IV 11/03/21 16:00 600 mls/hr ONCE@1500 RAMON Administration Insulin Human Lispro 0 unit 10/30/21 16:00 11/03/21 12:05 Insulin Lispro 100 Unit/Ml SUB-Q 1 unit Q6HR RAMON Administration Protocol Methylprednisolone Sodium Succinate 40 mg 11/03/21 15:00 11/03/21 15:08 Methylprednisolone Sod Succinate 40 Mg/1 Ml Inj IV 11/06/21 06:01 40 mg Q8HR RAMON Administration Multi-Ingred Cream/Lotion/Oil/Oint 1 applic 10/29/21 14:29 Mineral Oil/Petrolatum, White Ophth Oint 3.5 Gm OU Q4HR PRN Dry Eye(s) Quetiapine Fumarate 50 mg 11/02/21 22:00 11/03/21 09:05 Quetiapine 25 Mg Tab PO 50 mg BID RAMON Administration Senna/Docusate Sodium 1 tab 10/29/21 15:00 11/03/21 09:05 Sennosides/Docusate Sodium 8.6/50 Mg Tab FEEDTUBE 1 tab BID RAMON Administration Simple Syrup 15 ml 10/31/21 08:56 Simple Syrup 15 Ml FEEDTUBE PRN PRN Hypoglycemia Simple Syrup 30 ml 10/31/21 08:56 Simple Syrup 15 Ml FEEDTUBE PRN PRN Hypoglycemia Sodium Bicarbonate 325 mg 10/31/21 08:56 Sodium Bicarbonate 325 Mg Tab FEEDTUBE PRN PRN For Clogged Feeding Tube Sodium Chloride 10 ml 10/29/21 22:00 11/03/21 09:06 Sodium Chloride 0.9% 10 Ml Flush Syringe IV 10 ml BID RAMON Administration Sodium Chloride 10 ml 10/29/21 17:04 Sodium Chloride 0.9% 10 Ml Flush Syringe IV PRN PRN LINE FLUSH Nutrition/Malnutrition Assess - Dietary Evaluation Nutrition/Malnutrition Findings: Nutrition Notes Start: 10/30/21 09:50 Freq: Status: Active Protocol: Document 11/03/21 12:36 MEENU (Rec: 11/03/21 12:50 MEENU [id number]) Nutrition Notes Initial or Follow up Brief Note Current Diet TF-Vital HP @ 60 ml/hr (since L 10/31). Height 5 ft 10 in Weight 106.7 kg [place] Body Weight (kg) 68.18 BMI 33.7 Weight change and time frame No body weight change reported in 4 days. Weight Status Obese Subjective/Other Information RD consult for routine F/U on TF tolerance. TF continues as prescribed and well tolerated, according to RN notes. Percent of energy/protein needs met: Prescribed Vital HP @ 60 ml/hr provides for energy/protein needs (1,440 Kcal/126 g) during LOS, 90% Kcal; 93% AA. #1 Nutrition Diagnosis Inadequate oral intake Diagnosis Progress(for reassessment Continues documentation) Is patient on ventilator? Yes Is Patient Ambulatory and/or Out of Bed No REE-([place]-St. Jeor-confined to bed) 2022.848 Kcal/Kg value to use for calculation 15 Approximate Energy Requirements Using 1601 kcal/Kg Calculation Used for Recommendations Kcal/kg Additional Notes Protein: 2 g/Kg IBW; 136 g/day . Fluids: 1 ml/Kcal, or as per MD. Nutrition Intervention Nutrition Support: Continue Vital HP @ 60 ml/hr. Flush: 50 ml water Q 4 hr, or as per MD. Kcal 1,440 Protein (gm) 126 Carbohydrates (gm) 161 Fat (gm) 33 Fluid (mL) 1,204 Fiber (gm) 0 % RDI: 90% Kcal; 93% AA. Goal #1 Provide at least 75% of energy /protein needs through Enteral Feeding during LOS. Goal #2 Maintain body weight within +/ -3% of admission body weight during LOS. Follow-Up By: 11/10/21 Additional Comments Continue monitoring TF tolerance and BM.
[2021-11-03] MEDS: FAMOTIDINE 20 MG/2 ML INJ IV SCH (22:22)
[2021-11-04] MEDS: HEPARIN/ 0.45% NACL DRIP 25,000 UNIT/500 ML BAG IV SCH (00:12)
[2021-11-04] MEDS: INSULIN LISPRO 100 UNIT/ML SUB-Q SCH ×5 (00:25→18:07)
[2021-11-04] MEDS: diphenhydrAMINE 50 MG/ML VIAL IV SCH ×2 (04:18→18:18)
[2021-11-04] MEDS: AMIODARONE 900 MG in DEXTROSE 5% IN WATER 482 ML IV SCH (05:14)
--- NOTE | 2021-11-04 06:06 | XRay Report ---
CHEST 1 VIEW INDICATION / CLINICAL INFORMATION: follow up respiratory failure. COMPARISON: Chest x-ray 11/03/2021 FINDINGS: SUPPORT DEVICES: Stable, satisfactory device positioning. HEART / MEDIASTINUM: No significant interval change. LUNGS / PLEURA: Persistent mid and lower lung opacities no significant change. Low lung volumes. No s ignificant right pneumothorax. ADDITIONAL FINDINGS: No significant additional findings. IMPRESSION: 1. No adverse interval change in the chest. Signer Name: Martínez Rosenberg II, MD Signed: 11/04/2021 6:02 AM Workstation Name: [id number]
[2021-11-04] MEDS: fentaNYL DRIP Premix 2,000 MCG/100 ML BAG IV SCH ×2 (06:08→22:07)
[2021-11-04] MEDS: methylPREDNISolone Sod Succinate 40 MG/1 ML INJ IV SCH ×3 (09:22→22:08)
[2021-11-04] MEDS: FAMOTIDINE 20 MG/2 ML INJ IV SCH ×2 (09:22→22:08)
[2021-11-04] MEDS: QUEtiapine 25 MG TAB PO SCH ×2 (09:22→22:09)
[2021-11-04] MEDS: SENNOSIDES/DOCUSATE SODIUM 8.6/50 MG TAB FEEDTUBE SCH ×2 (09:23→22:09)
[2021-11-04 09:55] LABS: Hematocrit 32.8 % (30.3-42.9); Hemoglobin 10.2 gm/dl (10.1-14.3); Mean Corpuscular HGB Conc 31 % (30-34); Mean Corpuscular Volume 86 fl (79-97); Platelet Count 223 K/mm3 (140-440); Red Blood Count 3.83 M/mm3 (3.65-5.03); Red Cell Distribution Width 16.5 % (13.2-15.2)
[2021-11-04 10:14] LABS: Calcium 8.8 mg/dL (8.4-10.2)
--- NOTE | 2021-11-04 12:09 | Progress Note ---
Assessment and Plan Acute hypoxemic respiratory failure on MVS Cardiac arrest with ROSC Acute DVT Right pneumothorax Shock (septic +/- cardiogenic) Possible aspiration pneumonia SIERRA Altered mental status/acute encephalopathy Elevated serum transaminases, likely shock liver Metabolic acidosis Obesity Leukocytosis Hypokalemia Lactic acidosis (Had extended discussion with family with case[employer] [place]; explained her disease processes at length and answered their questions at length; I explained her CMOP, SIERRA and her AMS as bothersome issues. I explained the VTE possibly contributing to the initial cardiac arrest. I explained her baseline KOLBY/OHS is also a contributory factor. Overall i explained the next 3-4 days should give us a clearer picture of her progress after nephrology and neurology input is received) - urine lytes - nephrology consultation - neurology consultation - hold fentanyl - repeat ABG and address - kasyexalate 30 gms po X 1 - glucose and insulin -continue to treat angioedema re: steroids and anti-histamine therapy - Amiodarone per cardiology - good BP of vasopressors and will hold on Dobutrex - continue care as below otherwise; - vasopressors for target MAP > 65 mmHg - continue full anticoagulation with IV Heparin re: DVT - continue Daily SAT and SBT assessment as tolerated - continue to wean supplemental oxygen for target O2 sat's > 90% acutely - VAP bundle addressed - continue lung protective strategies - continue bronchodilators with pulmonary hygiene per RT - wean per pulmonary driven protocols otherwise - continue accuchecks with glycemic control per SSI (While critically ill target blood glucose of 140-180 mg/dL; avoid hypoglycemia) - sedation prn for target RASS 0 to -1 - avoid nephrotoxins, renally dose all medications - continue to avoid benzodiazepine's, reduce the possibility of delirium - AB's per ID rec's - prn analgesia per CPOT score - Maintenance of sleep-wake cycle, avoid delirium - continue enteral nutritional support at goal rate as tolerated - G.I. & VTE prophylaxis - PT/OT/ROM exercises - continue mobility protocols for pressure ulcer prophylaxis - Monitor hemodynamics closely - continue other care per attending / other consultants - discharge planning ongoing concurrently COVID SPECIFIC INTERVENTIONS - COVID-19 PCR negative .... Re-evaluate in am & prn CONDITION: CRITICAL PROGNOSIS: GUARDED CODE STATUS: FULL CODE The high probability of a clinically significant, sudden or life-threatening deterioration of the [respiratory, cardiovascular, renal & neurologic] system(s) required my full and direct attention, intervention and personal management. The aggregate critical care time was [45] minutes without overlap. Time includes spent on; [x] Data Review and interpretation [x] Patient assessment and monitoring of vital signs [x] Documentation [x] Medication orders and management Subjective Date of service: 11/04/21 Principal diagnosis: AHRF; Cardiac arrest; R. pneumothorax; pneumonia; AMS; DVT's; SIERRA; Obesity Interval history: Patient is seen today for: Acute hypoxemic respiratory failure; Cardiac arrest with ROSC; Right pneumothorax; pneumonia; AMS; bilateral DVT's; SIERRA; Obesity Seen and examined at bedside; 24hour events reviewed; nursing and respiratory care staff consulted; no adverse overnight events reported to me; remains on MVS; AMS is persistent; no emesis or overt aspiration; off Vasopressors; azotemia is worse; serum K+ 5.9 Objective Vital Signs - 12hr 11/04/21 11/04/21 11/04/21 00:15 00:31 00:44 Temperature 97.9 F Pulse Rate 136 H 106 H Pulse Rate [ From Monitor] Respiratory 14 14 Rate Blood Pressure 107/47 109/66 O2 Sat by Pulse 98 99 Oximetry 11/04/21 11/04/21 11/04/21 00:45 01:00 01:15 Temperature Pulse Rate 121 H 122 H 136 H Pulse Rate [ From Monitor] Respiratory 14 14 14 Rate Blood Pressure 109/66 101/67 117/71 O2 Sat by Pulse 98 98 98 Oximetry 11/04/21 11/04/21 11/04/21 01:30 01:45 02:00 Temperature Pulse Rate 136 H 114 H 132 H Pulse Rate [ From Monitor] Respiratory 10 L 14 14 Rate Blood Pressure 105/70 114/62 96/64 O2 Sat by Pulse 98 99 98 Oximetry 11/04/21 11/04/21 11/04/21 02:15 02:30 02:45 Temperature Pulse Rate 137 H 137 H 124 H Pulse Rate [ From Monitor] Respiratory 14 14 14 Rate Blood Pressure 116/80 115/76 115/76 O2 Sat by Pulse 99 98 99 Oximetry 11/04/21 11/04/21 11/04/21 03:01 03:15 03:31 Temperature Pulse Rate 122 H 136 H 124 H Pulse Rate [ From Monitor] Respiratory 14 14 14 Rate Blood Pressure 113/59 105/68 104/72 O2 Sat by Pulse 98 98 98 Oximetry 11/04/21 11/04/21 11/04/21 03:36 03:45 04:00 Temperature 98.8 F Pulse Rate 137 H 146 H Pulse Rate [ 140 H From Monitor] Respiratory 14 Rate Blood Pressure 111/77 O2 Sat by Pulse 98 97 Oximetry 11/04/21 11/04/21 11/04/21 04:01 04:15 04:17 Temperature Pulse Rate 150 H 143 H 137 H Pulse Rate [ From Monitor] Respiratory 17 14 Rate Blood Pressure 200/111 179/99 179/99 O2 Sat by Pulse 99 97 97 Oximetry 11/04/21 11/04/21 11/04/21 04:31 04:45 05:00 Temperature Pulse Rate 140 H 140 H 138 H Pulse Rate [ From Monitor] Respiratory 14 14 14 Rate Blood Pressure 95/66 97/63 96/61 O2 Sat by Pulse 96 96 96 Oximetry 11/04/21 11/04/21 11/04/21 05:15 05:31 05:45 Temperature Pulse Rate 136 H 146 H 145 H Pulse Rate [ From Monitor] Respiratory 14 23 18 Rate Blood Pressure 98/60 168/81 157/106 O2 Sat by Pulse 96 98 97 Oximetry 11/04/21 11/04/21 11/04/21 06:00 06:15 06:30 Temperature Pulse Rate 143 H 139 H 139 H Pulse Rate [ From Monitor] Respiratory 14 14 14 Rate Blood Pressure 103/75 103/70 92/56 O2 Sat by Pulse 96 97 96 Oximetry 11/04/21 11/04/21 11/04/21 06:45 07:00 07:15 Temperature Pulse Rate 138 H 137 H 123 H Pulse Rate [ From Monitor] Respiratory 14 14 14 Rate Blood Pressure 93/62 92/57 84/57 O2 Sat by Pulse 97 96 96 Oximetry 11/04/21 11/04/21 11/04/21 07:30 07:45 08:00 Temperature 97.9 F Pulse Rate 145 H 144 H 145 H Pulse Rate [ 140 H From Monitor] Respiratory 12 14 14 Rate Blood Pressure 195/124 165/96 158/98 O2 Sat by Pulse 98 96 98 Oximetry 11/04/21 11/04/21 11/04/21 08:15 08:30 08:45 Temperature Pulse Rate 144 H 141 H 139 H Pulse Rate [ From Monitor] Respiratory 14 14 14 Rate Blood Pressure 122/66 102/70 97/65 O2 Sat by Pulse 98 97 97 Oximetry 11/04/21 11/04/21 11/04/21 08:50 09:00 09:15 Temperature Pulse Rate 139 H 139 H 141 H Pulse Rate [ From Monitor] Respiratory 16 14 Rate Blood Pressure 97/65 163/99 161/96 O2 Sat by Pulse 96 98 97 Oximetry 11/04/21 11/04/21 11/04/21 09:30 09:45 10:00 Temperature Pulse Rate 143 H 143 H 139 H Pulse Rate [ From Monitor] Respiratory 15 14 14 Rate Blood Pressure 151/100 109/73 93/62 O2 Sat by Pulse 98 96 97 Oximetry 11/04/21 11/04/21 11/04/21 10:15 10:30 10:45 Temperature Pulse Rate 139 H 138 H 137 H Pulse Rate [ From Monitor] Respiratory 14 14 14 Rate Blood Pressure 94/60 100/62 101/66 O2 Sat by Pulse 95 96 97 Oximetry Constitutional: appears uncomfortable, other (elderly obese female without increased respiratory effort at rest) Eyes: non-icteric, other (+ mild periorbital phymosis) ENT: oropharynx moist, other (ETT 23 cm KRYSTAL) Neck: supple, no lymphadenopathy, no JVD Effort: normal Ascultation: Bilateral: diminished breath sounds, rhonchi Percussion: Bilateral: not dull Cardiovascular: regular rate and rhythm Gastrointestinal: normoactive bowel sounds, soft, non-tender, non-distended (protuberant) Integumentary: normal Extremities: no cyanosis, no edema, pulses normal, no ischemia or petechiae Neurologic: non-focal exam (grossly), pupils equal and round, unable to assess Psychiatric: other (unable to assess re: AMS) CBC and BMP: 11/04/21 09:40 11/04/21 09:40 ABG, PT/INR, D-dimer: ABG ABG pH 7.274 pH Units (7.350-7.450) L 11/03/21 09:20 ABG pCO2 54.3 mm Hg 11/03/21 09:20 ABG pO2 75.6 mm Hg (80.0-90.0) L 11/03/21 09:20 ABG O2 Saturation 94.9 % (95.0-99.0) L 11/03/21 09:20 PT/INR, D-dimer PT 17.2 Sec. (12.2-14.9) H 10/30/21 16:30 INR 1.27 (0.87-1.13) H 10/30/21 16:30 D-Dimer > 05462 ng/mlDDU (0-234) H 10/30/21 Unknown Abnormal lab findings: Abnormal Labs 10/29/21 10/29/21 10/29/21 15:10 15:10 15:10 WBC 27.8 H RBC Hgb Hct MCH 27 L RDW Plt Count Lymph % (Auto) Lymph # (Auto) [place] # (Auto) Seg Neutrophils % Seg Neuts % (Manual) 78.0 H Lymphocytes % (Manual) 10.0 L Seg Neutrophils # Seg Neutrophils # Man 21.7 H Monocytes # (Manual) 1.4 H PT INR APTT D-Dimer Heparin Anti-Xa Level ABG pH ABG pO2 ABG O2 Saturation ABG Base Excess ABG Hemoglobin Oxyhemoglobin Sodium Potassium Chloride Carbon Dioxide BUN Creatinine Glucose POC Glucose Hemoglobin A1c Lactic Acid 6.80 H* Calcium Magnesium Ferritin AST ALT Alkaline Phosphatase Lactate Dehydrogenase Troponin T 0.089 H C-Reactive Protein Total Protein Albumin LDL Cholesterol Direct Urine Creatinine Salicylates Acetaminophen 10/29/21 10/29/21 10/29/21 15:10 15:10 15:10 WBC RBC Hgb Hct MCH RDW Plt Count Lymph % (Auto) Lymph # (Auto) [place] # (Auto) Seg Neutrophils % Seg Neuts % (Manual) Lymphocytes % (Manual) Seg Neutrophils # Seg Neutrophils # Man Monocytes # (Manual) PT INR APTT D-Dimer Heparin Anti-Xa Level ABG pH ABG pO2 ABG O2 Saturation ABG Base Excess ABG Hemoglobin Oxyhemoglobin Sodium 136 L Potassium 2.8 L* Chloride 93.4 L Carbon Dioxide 20 L BUN Creatinine Glucose 330 H POC Glucose Hemoglobin A1c Lactic Acid Calcium Magnesium Ferritin AST 1013 H ALT 1289 H Alkaline Phosphatase 246 H Lactate Dehydrogenase Troponin T C-Reactive Protein Total Protein Albumin LDL Cholesterol Direct Urine Creatinine Salicylates < 0.3 L Acetaminophen 5.0 L 10/29/21 10/29/21 10/29/21 15:11 16:01 19:29 WBC RBC Hgb Hct MCH RDW Plt Count Lymph % (Auto) Lymph # (Auto) [place] # (Auto) Seg Neutrophils % Seg Neuts % (Manual) Lymphocytes % (Manual) Seg Neutrophils # Seg Neutrophils # Man Monocytes # (Manual) PT INR APTT D-Dimer Heparin Anti-Xa Level ABG pH 7.307 L ABG pO2 64.1 L ABG O2 Saturation 90.8 L ABG Base Excess -2.9 L ABG Hemoglobin Oxyhemoglobin 89.3 L Sodium Potassium Chloride Carbon Dioxide BUN Creatinine Glucose POC Glucose Hemoglobin A1c Lactic Acid 2.60 H* Calcium Magnesium 2.90 H Ferritin AST ALT Alkaline Phosphatase Lactate Dehydrogenase Troponin T C-Reactive Protein Total Protein Albumin LDL Cholesterol Direct Urine Creatinine Salicylates Acetaminophen 10/29/21 10/29/21 10/30/21 19:40 22:34 04:30 WBC 16.2 H RBC Hgb Hct MCH 26 L RDW 15.5 H Plt Count Lymph % (Auto) 6.2 L Lymph # (Auto) 1.0 L [place] # (Auto) 0.9 H Seg Neutrophils % 88.1 H Seg Neuts % (Manual) Lymphocytes % (Manual) Seg Neutrophils # 14.2 H Seg Neutrophils # Man Monocytes # (Manual) PT INR APTT D-Dimer Heparin Anti-Xa Level ABG pH ABG pO2 ABG O2 Saturation ABG Base Excess ABG Hemoglobin Oxyhemoglobin Sodium Potassium Chloride Carbon Dioxide BUN Creatinine Glucose POC Glucose Hemoglobin A1c Lactic Acid Calcium Magnesium Ferritin AST ALT Alkaline Phosphatase Lactate Dehydrogenase Troponin T 1.950 H* D 1.150 H* D C-Reactive Protein Total Protein Albumin LDL Cholesterol Direct 43 L Urine Creatinine Salicylates Acetaminophen 10/30/21 10/30/21 10/30/21 04:30 04:35 05:45 WBC RBC Hgb Hct MCH RDW Plt Count Lymph % (Auto) Lymph # (Auto) [place] # (Auto) Seg Neutrophils % Seg Neuts % (Manual) Lymphocytes % (Manual) Seg Neutrophils # Seg Neutrophils # Man Monocytes # (Manual) PT INR APTT D-Dimer Heparin Anti-Xa Level ABG pH ABG pO2 69.5 L ABG O2 Saturation ABG Base Excess -2.7 L ABG Hemoglobin Oxyhemoglobin 94.7 L Sodium Potassium Chloride Carbon Dioxide 21 L BUN Creatinine Glucose 159 H POC Glucose 151 H Hemoglobin A1c Lactic Acid Calcium 7.9 L D Magnesium Ferritin AST 461 H ALT 686 H Alkaline Phosphatase 130 H Lactate Dehydrogenase Troponin T C-Reactive Protein Total Protein 5.6 L D Albumin 3.2 L LDL Cholesterol Direct Urine Creatinine Salicylates Acetaminophen 10/30/21 10/30/21 10/30/21 11:24 15:59 16:30 WBC RBC Hgb Hct MCH RDW Plt Count Lymph % (Auto) Lymph # (Auto) [place] # (Auto) Seg Neutrophils % Seg Neuts % (Manual) Lymphocytes % (Manual) Seg Neutrophils # Seg Neutrophils # Man Monocytes # (Manual) PT 17.2 H INR 1.27 H APTT 44.4 H D-Dimer Heparin Anti-Xa Level ABG pH ABG pO2 ABG O2 Saturation ABG Base Excess ABG Hemoglobin Oxyhemoglobin Sodium Potassium Chloride Carbon Dioxide BUN Creatinine Glucose POC Glucose 153 H 109 H Hemoglobin A1c Lactic Acid Calcium Magnesium Ferritin AST ALT Alkaline Phosphatase Lactate Dehydrogenase Troponin T C-Reactive Protein Total Protein Albumin LDL Cholesterol Direct Urine Creatinine Salicylates Acetaminophen 10/30/21 10/30/21 10/30/21 23:00 Unknown Unknown WBC RBC Hgb Hct MCH RDW Plt Count Lymph % (Auto) Lymph # (Auto) [place] # (Auto) Seg Neutrophils % Seg Neuts % (Manual) Lymphocytes % (Manual) Seg Neutrophils # Seg Neutrophils # Man Monocytes # (Manual) PT INR APTT D-Dimer > 90068 H Heparin Anti-Xa Level 0.82 H ABG pH ABG pO2 ABG O2 Saturation ABG Base Excess ABG Hemoglobin Oxyhemoglobin Sodium Potassium Chloride Carbon Dioxide BUN Creatinine Glucose POC Glucose Hemoglobin A1c Lactic Acid Calcium Magnesium Ferritin 208.4 H AST ALT Alkaline Phosphatase Lactate Dehydrogenase Troponin T C-Reactive Protein Total Protein Albumin LDL Cholesterol Direct Urine Creatinine Salicylates Acetaminophen 10/30/21 10/31/21 10/31/21 Unknown 04:30 04:30 WBC 14.4 H RBC Hgb Hct MCH 26 L RDW Plt Count Lymph % (Auto) Lymph # (Auto) [place] # (Auto) Seg Neutrophils % Seg Neuts % (Manual) Lymphocytes % (Manual) Seg Neutrophils # Seg Neutrophils # Man Monocytes # (Manual) PT INR APTT D-Dimer Heparin Anti-Xa Level ABG pH ABG pO2 ABG O2 Saturation ABG Base Excess ABG Hemoglobin Oxyhemoglobin Sodium Potassium 3.5 L Chloride 107.5 H Carbon Dioxide 20 L BUN 28 H Creatinine 1.7 H Glucose 113 H POC Glucose Hemoglobin A1c Lactic Acid Calcium 7.9 L Magnesium Ferritin AST ALT Alkaline Phosphatase Lactate Dehydrogenase 469 H Troponin T C-Reactive Protein 13.40 H Total Protein Albumin LDL Cholesterol Direct Urine Creatinine Salicylates Acetaminophen 10/31/21 10/31/21 10/31/21 04:30 05:11 15:30 WBC RBC Hgb Hct MCH RDW Plt Count Lymph % (Auto) Lymph # (Auto) [place] # (Auto) Seg Neutrophils % Seg Neuts % (Manual) Lymphocytes % (Manual) Seg Neutrophils # Seg Neutrophils # Man Monocytes # (Manual) PT INR APTT D-Dimer Heparin Anti-Xa Level ABG pH 7.222 L ABG pO2 61.5 L ABG O2 Saturation 86.2 L ABG Base Excess -6.3 L ABG Hemoglobin 11.2 L Oxyhemoglobin 84.5 L Sodium Potassium Chloride Carbon Dioxide BUN Creatinine Glucose POC Glucose 106 H Hemoglobin A1c 6.7 H Lactic Acid Calcium Magnesium Ferritin AST ALT Alkaline Phosphatase Lactate Dehydrogenase Troponin T C-Reactive Protein Total Protein Albumin LDL Cholesterol Direct Urine Creatinine Salicylates Acetaminophen 10/31/21 10/31/21 10/31/21 16:07 16:35 17:45 WBC RBC Hgb Hct MCH RDW Plt Count Lymph % (Auto) Lymph # (Auto) [place] # (Auto) Seg Neutrophils % Seg Neuts % (Manual) Lymphocytes % (Manual) Seg Neutrophils # Seg Neutrophils # Man Monocytes # (Manual) PT INR APTT D-Dimer Heparin Anti-Xa Level ABG pH 7.267 L ABG pO2 58.3 L ABG O2 Saturation 88.3 L ABG Base Excess -5.9 L ABG Hemoglobin 10.1 L Oxyhemoglobin 86.5 L Sodium Potassium Chloride Carbon Dioxide BUN Creatinine Glucose POC Glucose 115 H Hemoglobin A1c Lactic Acid Calcium Magnesium Ferritin AST ALT Alkaline Phosphatase Lactate Dehydrogenase Troponin T C-Reactive Protein Total Protein Albumin LDL Cholesterol Direct Urine Creatinine 383.6 H Salicylates Acetaminophen 11/01/21 11/01/21 11/01/21 00:06 05:08 06:00 WBC 12.6 H RBC 3.43 L Hgb 8.9 L Hct 28.7 L MCH 26 L RDW 15.7 H Plt Count 130 L Lymph % (Auto) Lymph # (Auto) [place] # (Auto) Seg Neutrophils % Seg Neuts % (Manual) Lymphocytes % (Manual) Seg Neutrophils # Seg Neutrophils # Man Monocytes # (Manual) PT INR APTT D-Dimer Heparin Anti-Xa Level ABG pH ABG pO2 ABG O2 Saturation ABG Base Excess ABG Hemoglobin Oxyhemoglobin Sodium Potassium Chloride Carbon Dioxide BUN Creatinine Glucose POC Glucose 114 H 120 H Hemoglobin A1c Lactic Acid Calcium Magnesium Ferritin AST ALT Alkaline Phosphatase Lactate Dehydrogenase Troponin T C-Reactive Protein Total Protein Albumin LDL Cholesterol Direct Urine Creatinine Salicylates Acetaminophen 11/01/21 11/01/21 11/01/21 06:00 11:43 14:00 WBC RBC Hgb Hct MCH RDW Plt Count Lymph % (Auto) Lymph # (Auto) [place] # (Auto) Seg Neutrophils % Seg Neuts % (Manual) Lymphocytes % (Manual) Seg Neutrophils # Seg Neutrophils # Man Monocytes # (Manual) PT INR APTT D-Dimer Heparin Anti-Xa Level ABG pH 7.349 L ABG pO2 75.6 L ABG O2 Saturation ABG Base Excess -3.9 L ABG Hemoglobin 9.8 L Oxyhemoglobin 93.5 L Sodium Potassium Chloride 114.1 H Carbon Dioxide 20 L BUN 33 H Creatinine Glucose 131 H POC Glucose 151 H Hemoglobin A1c Lactic Acid Calcium 7.7 L Magnesium Ferritin AST 79 H ALT 259 H Alkaline Phosphatase Lactate Dehydrogenase Troponin T C-Reactive Protein Total Protein 5.5 L Albumin 2.7 L LDL Cholesterol Direct Urine Creatinine Salicylates Acetaminophen 11/01/21 11/01/21 11/02/21 16:45 22:55 05:12 WBC RBC Hgb Hct MCH RDW Plt Count Lymph % (Auto) Lymph # (Auto) [place] # (Auto) Seg Neutrophils % Seg Neuts % (Manual) Lymphocytes % (Manual) Seg Neutrophils # Seg Neutrophils # Man Monocytes # (Manual) PT INR APTT D-Dimer Heparin Anti-Xa Level ABG pH ABG pO2 ABG O2 Saturation ABG Base Excess ABG Hemoglobin Oxyhemoglobin Sodium Potassium Chloride Carbon Dioxide BUN Creatinine Glucose POC Glucose 119 H 129 H 140 H Hemoglobin A1c Lactic Acid Calcium Magnesium Ferritin AST ALT Alkaline Phosphatase Lactate Dehydrogenase Troponin T C-Reactive Protein Total Protein Albumin LDL Cholesterol Direct Urine Creatinine Salicylates Acetaminophen 11/02/21 11/02/21 11/02/21 05:35 05:35 09:35 WBC 13.5 H RBC 3.60 L Hgb 9.7 L Hct MCH 27 L RDW 15.7 H Plt Count Lymph % (Auto) Lymph # (Auto) [place] # (Auto) Seg Neutrophils % Seg Neuts % (Manual) Lymphocytes % (Manual) Seg Neutrophils # Seg Neutrophils # Man Monocytes # (Manual) PT INR APTT D-Dimer Heparin Anti-Xa Level ABG pH 7.208 L ABG pO2 75.9 L ABG O2 Saturation 93.6 L ABG Base Excess -4.3 L ABG Hemoglobin 9.1 L Oxyhemoglobin 91.6 L Sodium Potassium 5.2 H D Chloride 112.6 H Carbon Dioxide BUN 32 H Creatinine Glucose 152 H POC Glucose Hemoglobin A1c Lactic Acid Calcium 8.2 L Magnesium 2.70 H Ferritin AST ALT Alkaline Phosphatase Lactate Dehydrogenase Troponin T C-Reactive Protein Total Protein Albumin LDL Cholesterol Direct Urine Creatinine Salicylates Acetaminophen 11/02/21 11/02/21 11/02/21 11:44 17:13 23:43 WBC RBC Hgb Hct MCH RDW Plt Count Lymph % (Auto) Lymph # (Auto) [place] # (Auto) Seg Neutrophils % Seg Neuts % (Manual) Lymphocytes % (Manual) Seg Neutrophils # Seg Neutrophils # Man Monocytes # (Manual) PT INR APTT D-Dimer Heparin Anti-Xa Level ABG pH ABG pO2 ABG O2 Saturation ABG Base Excess ABG Hemoglobin Oxyhemoglobin Sodium Potassium Chloride Carbon Dioxide BUN Creatinine Glucose POC Glucose 173 H 148 H 137 H Hemoglobin A1c Lactic Acid Calcium Magnesium Ferritin AST ALT Alkaline Phosphatase Lactate Dehydrogenase Troponin T C-Reactive Protein Total Protein Albumin LDL Cholesterol Direct Urine Creatinine Salicylates Acetaminophen 11/03/21 11/03/21 11/03/21 04:59 06:00 06:00 WBC RBC 3.43 L Hgb 9.1 L Hct 29.0 L MCH 26 L RDW 16.4 H Plt Count Lymph % (Auto) Lymph # (Auto) [place] # (Auto) Seg Neutrophils % Seg Neuts % (Manual) Lymphocytes % (Manual) Seg Neutrophils # Seg Neutrophils # Man Monocytes # (Manual) PT INR APTT D-Dimer Heparin Anti-Xa Level 0.17 L ABG pH ABG pO2 ABG O2 Saturation ABG Base Excess ABG Hemoglobin Oxyhemoglobin Sodium Potassium Chloride Carbon Dioxide BUN Creatinine Glucose POC Glucose 167 H Hemoglobin A1c Lactic Acid Calcium Magnesium Ferritin AST ALT Alkaline Phosphatase Lactate Dehydrogenase Troponin T C-Reactive Protein Total Protein Albumin LDL Cholesterol Direct Urine Creatinine Salicylates Acetaminophen 11/03/21 11/03/21 11/03/21 06:00 09:20 11:58 WBC RBC Hgb Hct MCH RDW Plt Count Lymph % (Auto) Lymph # (Auto) [place] # (Auto) Seg Neutrophils % Seg Neuts % (Manual) Lymphocytes % (Manual) Seg Neutrophils # Seg Neutrophils # Man Monocytes # (Manual) PT INR APTT D-Dimer Heparin Anti-Xa Level ABG pH 7.274 L ABG pO2 75.6 L ABG O2 Saturation 94.9 L ABG Base Excess -2.5 L ABG Hemoglobin 9.3 L Oxyhemoglobin 92.9 L Sodium 149 H Potassium Chloride 117.5 H Carbon Dioxide BUN 32 H Creatinine Glucose 173 H POC Glucose 192 H Hemoglobin A1c Lactic Acid Calcium 8.1 L Magnesium Ferritin AST ALT Alkaline Phosphatase Lactate Dehydrogenase Troponin T C-Reactive Protein Total Protein Albumin LDL Cholesterol Direct Urine Creatinine Salicylates Acetaminophen 11/03/21 11/03/21 11/04/21 18:22 Unknown 00:09 WBC RBC Hgb Hct MCH RDW Plt Count Lymph % (Auto) Lymph # (Auto) [place] # (Auto) Seg Neutrophils % Seg Neuts % (Manual) Lymphocytes % (Manual) Seg Neutrophils # Seg Neutrophils # Man Monocytes # (Manual) PT INR APTT D-Dimer Heparin Anti-Xa Level 0.29 L ABG pH ABG pO2 ABG O2 Saturation ABG Base Excess ABG Hemoglobin Oxyhemoglobin Sodium Potassium Chloride Carbon Dioxide BUN Creatinine Glucose POC Glucose 178 H 221 H Hemoglobin A1c Lactic Acid Calcium Magnesium Ferritin AST ALT Alkaline Phosphatase Lactate Dehydrogenase Troponin T C-Reactive Protein Total Protein Albumin LDL Cholesterol Direct Urine Creatinine Salicylates Acetaminophen 11/04/21 11/04/21 11/04/21 05:09 09:40 09:40 WBC 16.8 H RBC Hgb Hct MCH 27 L RDW 16.5 H Plt Count Lymph % (Auto) Lymph # (Auto) [place] # (Auto) Seg Neutrophils % Seg Neuts % (Manual) Lymphocytes % (Manual) Seg Neutrophils # Seg Neutrophils # Man Monocytes # (Manual) PT INR APTT D-Dimer Heparin Anti-Xa Level ABG pH ABG pO2 ABG O2 Saturation ABG Base Excess ABG Hemoglobin Oxyhemoglobin Sodium Potassium 5.9 H Chloride 108.5 H Carbon Dioxide BUN 54 H Creatinine 1.8 H Glucose 198 H POC Glucose 182 H Hemoglobin A1c Lactic Acid Calcium Magnesium 3.00 H Ferritin AST ALT Alkaline Phosphatase Lactate Dehydrogenase Troponin T C-Reactive Protein Total Protein Albumin LDL Cholesterol Direct Urine Creatinine Salicylates Acetaminophen Chest x-ray: image reviewed (low lung volumes; chest tube in place) Allied health notes reviewed: nursing
[2021-11-04 13:44] LABS: ABG HCO3 25.9 mmol/L (20.0-26.0); ABG Methemoglobin 0.6 % (0.0-1.5); ABG Oxygen Saturation 92.8 % (95.0-99.0); ABG PCO2 64.4 mm Hg; ABG PH 7.223 pH Units (7.350-7.450); ABG PO2 71.3 mm Hg (80.0-90.0)
[2021-11-04] MEDS ORDERED: INSULIN REGULAR, HUMAN 100 UNITS/1 ML IV ONE (14:12)
[2021-11-04] MEDS ORDERED: SODIUM POLYSTYRENE 15 GM/60 ML ORAL LIQD PO ONE (14:12)
[2021-11-04] MEDS ORDERED: DEXTROSE 50% IN WATER (25GM) 50 ML SYRINGE IV ONE (14:15)
--- NOTE | 2021-11-04 14:32 | Progress Note ---
Assessment and Plan S/P PEA cardiopulmonary arrest * Echo 10/30/2021-technically difficult study due to body habitus. EF 25 to 30%. Right ventricular systolic function is normal. No pericardial effusion * Telemetry shows sinus tach 138 no events. Continue amiodarone drip * Patient is currently requiring intermittent vasopressors Acute DVT * Heparin gtt Plan to wean amiodarone drip once patient is hemodynamically stable. Will follow Patient seen in conjunction with Dr. Sara Cueto who agrees with this plan of care - Patient Problems (1) Cardiopulmonary arrest Current Visit: Yes Status: Acute (2) Hypokalemia Current Visit: Yes Status: Acute (3) Transaminitis Current Visit: Yes Status: Acute (4) Aspiration pneumonia Current Visit: Yes Status: Acute (5) Acute hypoxemic respiratory failure Current Visit: Yes Status: Acute (6) Septic shock Current Visit: Yes Status: Acute (7) Toxic metabolic encephalopathy Current Visit: Yes Status: Acute (8) Shock liver Current Visit: Yes Status: Acute Subjective Date of service: 11/04/21 Principal diagnosis: AHRF; Cardiac arrest; R. pneumothorax; pneumonia; AMS; DVT's; SIERRA; Obesity Interval history: Patient is intubated and sedated. Telemetry shows sinus rhythm 138 no events. Objective Last Vital Signs Temp 97.9 F 11/04/21 08:00 Pulse 129 H 11/04/21 13:31 Resp 13 11/04/21 13:31 BP 153/96 11/04/21 13:31 Pulse Ox 95 11/04/21 13:31 - Physical Examination General: Other (Intubated and sedated) HEENT: Positive: Normocephaly Neck: Positive: trachea midline Cardiac: Positive: Regular Rhythm Lungs: Positive: Normal Exam, clear to auscultation, Oxygen, Ventilated Respirations Neuro: Positive: Other (Unable to assess due to intubation sedated) Abdomen: Positive: Soft Skin: Negative: Rash, Suspicious Lesions Extremities: Present: upper extr. pulses, edema - Labs and Meds CBC 11/04/21 Range/Units 09:40 WBC 16.8 H (4.5-11.0) K/mm3 RBC 3.83 (3.65-5.03) M/mm3 Hgb 10.2 (10.1-14.3) gm/dl Hct 32.8 (30.3-42.9) % Plt Count 223 (140-440) K/mm3 Comprehensive Metabolic Panel 11/04/21 Range/Units 09:40 Sodium 142 (137-145) mmol/L Potassium 5.9 H (3.6-5.0) mmol/L Chloride 108.5 H (98-107) mmol/L Carbon Dioxide 22 (22-30) mmol/L BUN 54 H (7-17) mg/dL Creatinine 1.8 H (0.6-1.2) mg/dL Glucose 198 H (65-100) mg/dL Calcium 8.8 (8.4-10.2) mg/dL - Imaging and Cardiology Echo: report reviewed - Telemetry EKG Rhythm: Sinus Tachycardia - EKG Sinus rhythms and dysrhythmias: sinus rhythm Ventricular dysrhythmias: ventricular premature com - Allied health notes Allied health notes reviewed: nursing
--- NOTE | 2021-11-04 14:34 | Progress Note ---
Assessment and Plan Assessment and plan: This is a 66-year-old female with past medical history of HTN and Obesity admitted for septic shock, s/p cardiac arrest with ROSC in the field now intubated and on ventilatory support Neuro: Acute Metabolic encephalopathy -Avoid delirium -Reorientation as needed -Sedated with fentanyl -RASS goal 0 to -1 -As needed analgesia and haldol -Seroquel started 11/01 -Maintain sleep-wake cycle -CT head no acute focal parenchymal lesion in the brain -Neurology consulted, appreciate recommendations Cardiac: Atrial fibrillation/atrial flutter s/p cardiac arrest, HFrEF, hyp otension, h/o htn -Outside hospital cardiac arrest with ROSC -Cardiology consulted, appreciate recommendations -vasopressor support with levophed -map goal >65 -Echocardiogram shows left ventricular systolic function severely decreased, LVEF 25 to 30%, no pericardial effusion -proBNP 5622 -BP monitoring per protocol -hold home antihtn regimen -Amiodarone bolus with drip Respiratory: Acute hypoxic respiratory failure, right pneumothorax -CCM consulted, appreciate recommendations -A.m. vent settings: Assist-control rate 14, tidal volume 500, PEEP 8, FiO2 40% -See RT notes for titration -AM CXR and ABG noted -VAP bundle -SPO2 monitoring -Right chest tube to wall suction -Past 24 hours drainage: 50 mL GI: Protein calorie malnutrion, transaminitis likely shocked liver -24 hours + 427 mL -PPI -NTR consulted for tube feedings -Trend LFTs -BM: 11/03 s/p mag citrate : Acute kidney injury likely secondary to vasomotor nephropathy, hyperkalemia -Cr increased to 1.7 -Strict intake and output -Gregory catheter discontinued 11/03 -Renally dose medications -Avoid nephrotoxic medications -Daily weights -FWF -FeNa 0.05 indicating pre-renal -Nephrology consulted, appreciate recommendations -Medically treat hyperkalemia -Trend BMP ID: Septic shock -COVID-19 PCR negative -S/p antibiotic therapy with Rocephin and azithromycin () -Levophed gtt for hypotension -Follow-up culture data -Monitor WBC and temperature curve Endo: Hyperglycemia -Avoid hypoglycemia -Hbg A1C 6.7 -SSI -Accu-Cheks q. 6 Heme: Acute DVT in the left posterior tibial vein and bilateral peroneal veins, Leukocytosis -D-dimer greater than 10,000 -CTA chest with no evidence of PE -Bilateral lower extremity ultrasound positive for DVT -Heparin gtt -Trend CBC -SCDs to BLE while in bed -Transfuse hemoglobin less than 7 -Monitor for signs of bleeding The high probability of a clinically significant, sudden or life threatening deterioration of the [multi] system(s) required my full and direct attention, intervention and personal management. The aggregate critical care time was [60] minutes. This time is in addition to time spent performing reported procedures but includes the following: [x] Data Review and interpretation [x] Patient assessment and monitoring of vital signs [x] Documentation [x] Medication orders and management Disposition Plan: icu Total Time Spent with Patient (Minutes): 60 History Interval history: This is a 66-year-old female with HTN and obesity who presented to the hospital on 10/29 via EMS with s/p cardiac arrest with CPR initiated by bystanders and upon EMS arrival a David airway was placed and ACLS was initiated. Patient had ROSC after 5-7 minutes and was started on epinephrine in route for hemodynamic support. Upon arrival to the emergency department patient GCS was noted to be 3 and she was biting the endotracheal tube with dilated pupils and copious vomitus and gastric secretions in the oropharynx/mouth/neck. David airway was removed and patient was intubated in the emergency department. Patient was admitted to the hospitalist service s/p cardiac arrest on sepsis and pneumonia protocol with consults to [facility]. Cardiology was consulted upon arrival to ICU. Hospital Course to Date: 10/30: Intubated and sedated, on fentanyl gtt. Open eyes spontaneously but does not follow any commands. On vasopressors, titrate as tolerated for MAP above 65. Patient febrile overnight, continue empiric IV Abx, culture data and COVID PCR pending. Patient is also s/p CT placement due to spontaneous pneumothorax. 2D echo is pending and Cardiology is consulted. 10/31: Patient remains intubated and following commands. Levophed drip stopped and potassium repleted. Patient started on tube feeding. Remains in soft bilateral restraints. 11/01: RN noted ST changes on BSM and 12 lead EKG obtained which showed ST. Given Ativan 1mg for agitation as she is maxed on fentanyl drip and IV push fentanyl did not seem to help. Patient was started on CPAP this morning by RT but remained on fentanyl drip and was having periods of apnea. Plan was to retry CPAP again in the p.m. with sedation off. 11/02: Rate increased r/t hypercapnea on ABG, sedation reduced. Given kionex for hyperkalemia and was started on levophed overnight for hypotension. 11/03: Overnight patient had tachycardia and was given Cardizem and Lopressor. Lopressor was repeated in the a.m. due to tachycardia. Patient will be started on amiodarone with a bolus per cardiology. Patient started on normal saline per liter per [facility] and steroids for angioedema. Noted to have bright red blood when suctioned from oh ETT. Remains on heparin drip as H/H is stable for now. Will reevaluate. Fentanyl drip was restarted last night due to agitation. Dr. Flores updated family today 11/04: Patient was sedated on fentanyl however off sedation is able to follow commands, a.m. labs completed in the p.m. and show hyperkalemia with increased renal function studies. Nephrology, neurology consulted by [facility]. Given Kayexalate, insulin and D50 for hyperkalemia. Patient remains on amiodarone. Hospitalist Physical - Constitutional Vitals: Temp Pulse Resp BP Pulse Ox 97.9 F 129 H 13 153/96 95 11/04/21 08:00 11/04/21 13:31 11/04/21 13:31 11/04/21 13:31 11/04/21 13:31 General appearance: Present: no acute distress, obese, other (Intubated and Sedated) - EENT Eyes: Present: PERRL, EOM intact ENT: clear oral mucosa, dentition normal - Neck Neck: Present: normal ROM - Respiratory Respiratory effort: normal - Cardiovascular Rhythm: regularly irregular Heart Sounds: Present: S1 & S2. Absent: systolic murmur, diastolic murmur - Extremities Extremities: no ischemia, pulses intact, pulses symmetrical, normal temperature, normal color Peripheral Pulses: within normal limits - Abdominal General gastrointestinal: soft, non-tender, non-distended, normal bowel sounds - Integumentary Integumentary: Present: clear, warm, dry - Psychiatric Psychiatric: other (sedated) - Neurologic Neurologic: other (sedated) - Allied Health Allied health notes reviewed: nursing, RT, social work HEART Score - HEART Score Troponin: Troponin T 1.150 ng/mL (0.00-0.029) H* D 10/29/21 22:34 Results - Labs CBC & Chem 7: 11/04/21 09:40 11/04/21 09:40 Labs: Laboratory Last Values WBC 16.8 K/mm3 (4.5-11.0) H 11/04/21 09:40 RBC 3.83 M/mm3 (3.65-5.03) 11/04/21 09:40 Hgb 10.2 gm/dl (10.1-14.3) 11/04/21 09:40 Hct 32.8 % (30.3-42.9) 11/04/21 09:40 MCV 86 fl (79-97) 11/04/21 09:40 MCH 27 pg (28-32) L 11/04/21 09:40 MCHC 31 % (30-34) 11/04/21 09:40 RDW 16.5 % (13.2-15.2) H 11/04/21 09:40 Plt Count 223 K/mm3 (140-440) 11/04/21 09:40 Lymph % (Auto) 6.2 % (13.4-35.0) L 10/30/21 04:30 [place] % (Auto) 5.5 % (0.0-7.3) 10/30/21 04:30 Eos % (Auto) 0.1 % (0.0-4.3) 10/30/21 04:30 Baso % (Auto) 0.1 % (0.0-1.8) 10/30/21 04:30 Lymph # (Auto) 1.0 K/mm3 (1.2-5.4) L 10/30/21 04:30 [place] # (Auto) 0.9 K/mm3 (0.0-0.8) H 10/30/21 04:30 Eos # (Auto) 0.0 K/mm3 (0.0-0.4) 10/30/21 04:30 Baso # (Auto) 0.0 K/mm3 (0.0-0.1) 10/30/21 04:30 Add Manual Diff Complete 10/29/21 15:10 Total Counted 100 10/29/21 15:10 Seg Neutrophils % 88.1 % (40.0-70.0) H 10/30/21 04:30 Seg Neuts % (Manual) 78.0 % (40.0-70.0) H 10/29/21 15:10 Band Neutrophils % 5.0 % 10/29/21 15:10 Lymphocytes % (Manual) 10.0 % (13.4-35.0) L 10/29/21 15:10 Reactive Lymphs % (Man) 0 % 10/29/21 15:10 Monocytes % (Manual) 5.0 % (0.0-7.3) 10/29/21 15:10 Eosinophils % (Manual) 0 % (0.0-4.3) 10/29/21 15:10 Basophils % (Manual) 0 % (0.0-1.8) 10/29/21 15:10 Metamyelocytes % 2.0 % 10/29/21 15:10 Myelocytes % 0 % 10/29/21 15:10 Promyelocytes % 0 % 10/29/21 15:10 Blast Cells % 0 % 10/29/21 15:10 Nucleated RBC % Not Reportable 10/29/21 15:10 Seg Neutrophils # 14.2 K/mm3 (1.8-7.7) H 10/30/21 04:30 Seg Neutrophils # Man 21.7 K/mm3 (1.8-7.7) H 10/29/21 15:10 Band Neutrophils # 1.4 K/mm3 10/29/21 15:10 Lymphocytes # (Manual) 2.8 K/mm3 (1.2-5.4) 10/29/21 15:10 Abs React Lymphs (Man) 0.0 K/mm3 10/29/21 15:10 Monocytes # (Manual) 1.4 K/mm3 (0.0-0.8) H 10/29/21 15:10 Eosinophils # (Manual) 0.0 K/mm3 (0.0-0.4) 10/29/21 15:10 Basophils # (Manual) 0.0 K/mm3 (0.0-0.1) 10/29/21 15:10 Metamyelocytes # 0.6 K/mm3 10/29/21 15:10 Myelocytes # 0.0 K/mm3 10/29/21 15:10 Promyelocytes # 0.0 K/mm3 10/29/21 15:10 Blast Cells # 0.0 K/mm3 10/29/21 15:10 WBC Morphology Not Reportable 10/29/21 15:10 Hypersegmented Neuts Not Reportable 10/29/21 15:10 Hyposegmented Neuts Not Reportable 10/29/21 15:10 Hypogranular Neuts Not Reportable 10/29/21 15:10 Smudge Cells Not Reportable 10/29/21 15:10 Toxic Granulation Not Reportable 10/29/21 15:10 Toxic Vacuolation Not Reportable 10/29/21 15:10 Dohle Bodies Not Reportable 10/29/21 15:10 Pelger-Huet Anomaly Not Reportable 10/29/21 15:10 Manny Rods Not Reportable 10/29/21 15:10 Platelet Estimate Consistent w auto 10/29/21 15:10 Clumped Platelets Not Reportable 10/29/21 15:10 Plt Clumps, EDTA Not Reportable 10/29/21 15:10 Large Platelets Not Reportable 10/29/21 15:10 Giant Platelets Not Reportable 10/29/21 15:10 Platelet Satelliting Not Reportable 10/29/21 15:10 Plt Morphology Comment Not Reportable 10/29/21 15:10 RBC Morphology Not Reportable 10/29/21 15:10 Dimorphic RBCs Not Reportable 10/29/21 15:10 Polychromasia Not Reportable 10/29/21 15:10 Hypochromasia Not Reportable 10/29/21 15:10 Poikilocytosis 1+ 10/29/21 15:10 Anisocytosis Not Reportable 10/29/21 15:10 Microcytosis 1+ 10/29/21 15:10 Macrocytosis Not Reportable 10/29/21 15:10 Spherocytes Not Reportable 10/29/21 15:10 Pappenheimer Bodies Not Reportable 10/29/21 15:10 Sickle Cells Not Reportable 10/29/21 15:10 Target Cells Not Reportable 10/29/21 15:10 Tear Drop Cells Not Reportable 10/29/21 15:10 Ovalocytes Few 10/29/21 15:10 Helmet Cells Not Reportable 10/29/21 15:10 [place] Bodies Not Reportable 10/29/21 15:10 [place] Rings Not Reportable 10/29/21 15:10 [place] Cells Not Reportable 10/29/21 15:10 Bite Cells Not Reportable 10/29/21 15:10 Crenated Cell Not Reportable 10/29/21 15:10 Elliptocytes Few 10/29/21 15:10 Acanthocytes (Spur) Not Reportable 10/29/21 15:10 Rouleaux Not Reportable 10/29/21 15:10 Hemoglobin C Crystals Not Reportable 10/29/21 15:10 Schistocytes Not Reportable 10/29/21 15:10 Malaria parasites Not Reportable 10/29/21 15:10 [place]dy Bodies Not Reportable 10/29/21 15:10 Hem Pathologist Commnt No 10/29/21 15:10 PT 17.2 Sec. (12.2-14.9) H 10/30/21 16:30 INR 1.27 (0.87-1.13) H 10/30/21 16:30 APTT 44.4 Sec. (24.2-36.6) H 10/30/21 16:30 D-Dimer > 70394 ng/mlDDU (0-234) H 10/30/21 Unknown Heparin Anti-Xa Level 0.54 U.I./ml (0.3-0.7) 11/04/21 09:40 ABG pH 7.223 pH Units (7.350-7.450) L 11/04/21 13:34 ABG pCO2 64.4 mm Hg 11/04/21 13:34 ABG pO2 71.3 mm Hg (80.0-90.0) L 11/04/21 13:34 ABG HCO3 25.9 mmol/L (20.0-26.0) 11/04/21 13:34 ABG O2 Saturation 92.8 % (95.0-99.0) L 11/04/21 13:34 ABG O2 Content 10.5 (0.0-44) 11/04/21 13:34 ABG Base Excess -2.0 mmol/L (-2.0-3.0) 11/04/21 13:34 ABG Hemoglobin 8.2 gm/dl (12.0-16.0) L 11/04/21 13:34 ABG Carboxyhemoglobin 1.4 % (0.0-5.0) 11/04/21 13:34 ABG Methemoglobin 0.6 % (0.0-1.5) 11/04/21 13:34 Oxyhemoglobin 91.0 % (95.0-99.0) L 11/04/21 13:34 FiO2 35 % 11/04/21 13:34 Sodium 142 mmol/L (137-145) 11/04/21 09:40 Potassium 5.9 mmol/L (3.6-5.0) H 11/04/21 09:40 Chloride 108.5 mmol/L (98-107) H 11/04/21 09:40 Carbon Dioxide 22 mmol/L (22-30) 11/04/21 09:40 Anion Gap 17 mmol/L 11/04/21 09:40 BUN 54 mg/dL (7-17) H 11/04/21 09:40 Creatinine 1.8 mg/dL (0.6-1.2) H 11/04/21 09:40 Estimated GFR 34 ml/min 11/04/21 09:40 BUN/Creatinine Ratio 30 % 11/04/21 09:40 Glucose 198 mg/dL (65-100) H 11/04/21 09:40 POC Glucose 184 mg/dL (70-105) H 11/04/21 12:13 Hemoglobin A1c 6.7 % (4-6) H 10/31/21 04:30 Lactic Acid 0.70 mmol/L (0.7-2.0) 10/31/21 15:45 Calcium 8.8 mg/dL (8.4-10.2) 11/04/21 09:40 Phosphorus 3.80 mg/dL (2.5-4.5) 11/04/21 09:40 Magnesium 3.00 mg/dL (1.7-2.3) H 11/04/21 09:40 Ferritin 208.4 ng/mL (10.0-200.0) H 10/30/21 Unknown Total Bilirubin 0.30 mg/dL (0.1-1.2) 11/01/21 06:00 AST 79 units/L (5-40) H 11/01/21 06:00 ALT 259 units/L (7-56) H 11/01/21 06:00 Alkaline Phosphatase 113 units/L (35-129) 11/01/21 06:00 Ammonia 31.0 umol/L (25-60) 10/29/21 15:10 Lactate Dehydrogenase 469 units/L (91-180) H 10/30/21 Unknown Troponin T 1.150 ng/mL (0.00-0.029) H* D 10/29/21 22:34 C-Reactive Protein 13.40 mg/dL (0.00-1.30) H 10/30/21 Unknown Total Protein 5.5 g/dL (6.3-8.2) L 11/01/21 06:00 Albumin 2.7 g/dL (3.9-5) L 11/01/21 06:00 Albumin/Globulin Ratio 1.0 % 11/01/21 06:00 Triglycerides 68 mg/dL (2-149) 10/29/21 19:40 Cholesterol 98 mg/dL (50-199) 10/29/21 19:40 LDL Cholesterol Direct 43 mg/dL (50-130) L 10/29/21 19:40 HDL Cholesterol 50 mg/dL (40-59) 10/29/21 19:40 Cholesterol/HDL Ratio 1.96 % 10/29/21 19:40 Procalcitonin 61.95 ng/mL (<0.15) 10/30/21 Unknown TSH 3.080 mlU/mL (0.270-4.200) 10/29/21 15:10 Urine Color Straw (Yellow) 10/29/21 18:15 Urine Turbidity Clear (Clear) 10/29/21 18:15 Urine pH 7.0 (5.0-7.0) 10/29/21 18:15 Ur Specific [place] 1.018 (1.003-1.030) 10/29/21 18:15 Urine Protein 100 mg/dl mg/dL (Negative) 10/29/21 18:15 Urine Glucose (UA) 150 mg/dL (Negative) 10/29/21 18:15 Urine Ketones Neg mg/dL (Negative) 10/29/21 18:15 Urine Blood Mod (Negative) 10/29/21 18:15 Urine Nitrite Neg (Negative) 10/29/21 18:15 Urine Bilirubin Neg (Negative) 10/29/21 18:15 Urine Urobilinogen < 2.0 mg/dL (<2.0) 10/29/21 18:15 Ur Leukocyte Esterase Neg (Negative) 10/29/21 18:15 Urine WBC (Auto) 5.0 /HPF (0.0-6.0) 10/29/21 18:15 Urine RBC (Auto) 2.0 /HPF (0.0-6.0) 10/29/21 18:15 U Epithel Cells (Auto) < 1.0 /HPF (0-13.0) 10/29/21 18:15 Urine Mucus Few /HPF 10/29/21 18:15 Urine Creatinine 383.6 mg/dL (0.1-20.0) H 10/31/21 16:35 Urine Sodium 16 mmol/L 10/31/21 16:35 Salicylates < 0.3 mg/dL (2.8-20.0) L 10/29/21 15:10 Urine Opiates Screen Negative 10/29/21 18:15 Urine Methadone Screen Negative 10/29/21 18:15 Acetaminophen 5.0 ug/mL (10.0-30.0) L 10/29/21 15:10 Ur Barbiturates Screen Negative 10/29/21 18:15 Ur Phencyclidine Scrn Negative 10/29/21 18:15 Ur Amphetamines Screen Negative 10/29/21 18:15 U Benzodiazepines Scrn Negative 10/29/21 18:15 Urine Cocaine Screen Negative 10/29/21 18:15 U Marijuana (THC) Screen Negative 10/29/21 18:15 Drugs of Abuse Note Disclamer 10/29/21 18:15 Plasma/Serum Alcohol < 0.01 % (0-0.07) 10/29/21 15:10 Coronavirus (PCR) Negative (Negative) 10/30/21 Unknown Blood Type O POSITIVE 10/29/21 15:10 Antibody Screen Negative 10/29/21 15:10 Microbiology: Microbiology 11/01/21 09:11 Tracheal Aspirate Sputum Culture - Final 10/29/21 Unknown Peripheral/Venous Blood Culture - Final NO GROWTH AFTER 5 DAYS 10/29/21 Unknown Peripheral/Venous Blood Culture - Final NO GROWTH AFTER 5 DAYS Gregory/IV: Voiding Method Indwelling Catheter Active Medications - Current Medications Current Medications: Generic Name Dose Route Start Last Admin Trade Name Freq PRN Reason Stop Dose Admin Acetaminophen 650 mg 10/29/21 17:04 11/03/21 11:35 Acetaminophen 325 Mg Tab PO 650 mg Q6H PRN Administration Pain, Mild (1-3) Acetaminophen 650 mg 10/29/21 17:04 Acetaminophen 650 Mg Rect Supp AR Q6H PRN Pain MILD(1-3)/Fever >100.5/NIEVES Lipase/Protease/Amylase 1 each 10/31/21 08:56 Lipase 10,500/Protease 25,000/Amylase 43,750 (Units) Dr Cap FEEDTUBE PRN PRN For Clogged Feeding Tube Dextrose 50 ml 10/30/21 15:21 Dextrose 50% In Water (25gm) 50 Ml Syringe IV Q30MIN PRN Hypoglycemia Protocol Dextrose 0 ml 11/04/21 13:48 Dextrose 10% *Hypoglycemia IV PRN PRN Hypoglycemia Diphenhydramine HCl 25 mg 11/03/21 15:00 11/04/21 04:18 Diphenhydramine 50 Mg/Ml Vial IV 11/06/21 03:01 25 mg Q12H RAMON Administration Famotidine 20 mg 11/03/21 22:00 11/04/21 09:22 Famotidine 20 Mg/2 Ml Inj IV 20 mg BID RAMON Administration Heparin Sodium (Porcine) 4,300 unit 10/30/21 17:00 Heparin 10,000 Units/10 Ml Vial 40 unit/kg (4300 unit) IV Q6H PRN Anti-Xa Assay < 0.1 units/ml Hydrophilic Ointment 1 applic 10/29/21 14:29 Lip Therapy Vaseline TP Q2HR PRN Dry Lips Fentanyl Citrate 2,000 mcg in 100 mls @ 5.67 mls/hr 10/29/21 15:00 11/04/21 09:15 Fentanyl Drip Premix IV 2 mcg/kg/hr TITR RAMON 11.34 mls/hr Titration Protocol 1 MCG/KG/HR NORepinephrine/NS 8 MG-250 ML 8 mg in 250 mls @ 3.75 mls/hr 10/29/21 15:00 11/04/21 07:00 Norepinephrine/Ns 8 Mg-250 Ml (Double Conc) IV 0 mcg/min TITRATE RAMON 0 mls/hr Titration Protocol 2 MCG/MIN Heparin Sodium/Sodium Chloride 25,000 unit in 500 mls @ 30 mls/hr 10/30/21 17:00 11/04/21 12:04 Heparin/ 0.45% Nacl-25,000 Unit/500 Ml IV 1,700 units/hr TITR RAMON 34 mls/hr Titration Protocol 1,500 UNITS/HR Amiodarone HCl 900 mg/ 500 mls @ 33.333 mls/hr 11/03/21 11:00 11/04/21 09:16 Dextrose IV 0.5 mg/min DIRECT RAMON 16.667 mls/hr Infusion Protocol 1 MG/MIN Insulin Human Lispro 0 unit 10/30/21 16:00 11/04/21 13:02 Insulin Lispro 100 Unit/Ml SUB-Q 1 unit Q6HR RAMON Administration Protocol Methylprednisolone Sodium Succinate 40 mg 11/03/21 15:00 11/04/21 14:06 Methylprednisolone Sod Succinate 40 Mg/1 Ml Inj IV 11/06/21 06:01 40 mg Q8HR RAMON Administration Multi-Ingred Cream/Lotion/Oil/Oint 1 applic 10/29/21 14:29 Mineral Oil/Petrolatum, White Ophth Oint 3.5 Gm OU Q4HR PRN Dry Eye(s) Quetiapine Fumarate 50 mg 11/02/21 22:00 11/04/21 09:22 Quetiapine 25 Mg Tab PO 50 mg BID RAMON Administration Senna/Docusate Sodium 1 tab 10/29/21 15:00 11/04/21 09:23 Sennosides/Docusate Sodium 8.6/50 Mg Tab FEEDTUBE Not Given BID RAMON Simple Syrup 15 ml 10/31/21 08:56 Simple Syrup 15 Ml FEEDTUBE PRN PRN Hypoglycemia Simple Syrup 30 ml 10/31/21 08:56 Simple Syrup 15 Ml FEEDTUBE PRN PRN Hypoglycemia Sodium Bicarbonate 325 mg 10/31/21 08:56 Sodium Bicarbonate 325 Mg Tab FEEDTUBE PRN PRN For Clogged Feeding Tube Sodium Chloride 10 ml 10/29/21 22:00 11/04/21 09:23 Sodium Chloride 0.9% 10 Ml Flush Syringe IV 10 ml BID RAMON Administration Sodium Chloride 10 ml 10/29/21 17:04 Sodium Chloride 0.9% 10 Ml Flush Syringe IV PRN PRN LINE FLUSH Nutrition/Malnutrition Assess - Dietary Evaluation Nutrition/Malnutrition Findings: Nutrition Notes Start: 10/30/21 09 :50 Freq: Status: Active Protocol: Document 11/03/21 12:36 MEENU (Rec: 11/03/21 12:50 MEENU [id number]) Nutrition Notes Initial or Follow up Brief Note Current Diet TF-Vital HP @ 60 ml/hr (since L 10/31). Height 5 ft 10 in Weight 106.7 kg [place] Body Weight (kg) 68.18 BMI 33.7 Weight change and time frame No body weight change reported in 4 days. Weight Status Obese Subjective/Other Information RD consult for routine F/U on TF tolerance. TF continues as prescribed and well tolerated, according to RN notes. Percent of energy/protein needs met: Prescribed Vital HP @ 60 ml/hr provides for energy/protein needs (1,440 Kcal/126 g) during LOS, 90% Kcal; 93% AA. #1 Nutrition Diagnosis Inadequate oral intake Diagnosis Progress(for reassessment Continues documentation) Is patient on ventilator? Yes Is Patient Ambulatory and/or Out of Bed No REE-([place]-confined to bed) 2022.848 Kcal/Kg value to use for calculation 15 Approximate Energy Requirements Using 1601 kcal/Kg Calculation Used for Recommendations Kcal/kg Additional Notes Protein: 2 g/Kg IBW; 136 g/day . Fluids: 1 ml/Kcal, or as per MD. Nutrition Intervention Nutrition Support: Continue Vital HP @ 60 ml/hr. Flush: 50 ml water Q 4 hr, or as per MD. Kcal 1,440 Protein (gm) 126 Carbohydrates (gm) 161 Fat (gm) 33 Fluid (mL) 1,204 Fiber (gm) 0 % RDI: 90% Kcal; 93% AA. Goal #1 Provide at least 75% of energy /protein needs through Enteral Feeding during LOS. Goal #2 Maintain body weight within +/ -3% of admission body weight during LOS. Follow-Up By: 11/10/21 Additional Comments Continue monitoring TF tolerance and BM.
[2021-11-04 14:58] LABS: Creatinine,Urine 184.6 mg/dL (0.1-20.0)
--- NOTE | 2021-11-04 14:58 | Consultation ---
History of Present Illness - Reason for Consult Consult date: 11/04/21 acute renal failure - History of Present Illness This is a 66 year old female who is currently in the ICU intubated for Cardiac arrest and Acute Hypoxemic Respiratory Failure. Patient loss consciousness suddenly while attending [facility] and was brought to this hospital via EMS where she required intubation. Patient was also hypotensive and potassium was found to be low at 2.8 and troponin level was elevated at 1.15 on admission. Serum creatinine on admission was 1.2 that anyi to 1.8 today. We are being consulted for management of this patient's Acute Renal Failure. Past History Past Medical History: other (See HPI) Past Surgical History: No surgical history, Other (Unable to obtain) Social history: single. denies: smoking, alcohol abuse, prescription drug abuse Family history: diabetes, hypertension Medications and Allergies Allergies Allergy/AdvReac Type Severity Reaction Status Date / Time No Known Allergies Allergy Verified 10/29/21 14:01 Active Meds: Active Medications Acetaminophen (Acetaminophen 325 Mg Tab) 650 mg PO Q6H PRN PRN Reason: Pain, Mild (1-3) Last Admin: 11/03/21 11:35 Dose: 650 mg Acetaminophen (Acetaminophen 650 Mg Rect Supp) 650 mg PA Q6H PRN PRN Reason: Pain MILD(1-3)/Fever >100.5/NIEVES Lipase/Protease/Amylase (Lipase 10,500/Protease 25,000/Amylase 43,750 (Units) Dr Ivory) 1 each FEEDTUBE PRN PRN PRN Reason: For Clogged Feeding Tube Dextrose (Dextrose 50% In Water (25gm) 50 Ml Syringe) 50 ml IV Q30MIN PRN; Protocol PRN Reason: Hypoglycemia Dextrose (Dextrose 10% *Hypoglycemia) 0 ml IV PRN PRN PRN Reason: Hypoglycemia Diphenhydramine HCl (Diphenhydramine 50 Mg/Ml Vial) 25 mg IV Q12H RAMON Stop: 11/06/21 03:01 Last Admin: 11/04/21 04:18 Dose: 25 mg Famotidine (Famotidine 20 Mg/2 Ml Inj) 20 mg IV BID RAMON Last Admin: 11/04/21 09:22 Dose: 20 mg Fentanyl (Fentanyl 100 Mcg/2 Ml Inj) 50 mcg IV Q2H PRN PRN Reason: Pain, Moderate (4-6) Heparin Sodium (Porcine) (Heparin 10,000 Units/10 Ml Vial) 4,300 unit 40 unit/kg (4300 unit) IV Q6H PRN PRN Reason: Anti-Xa Assay < 0.1 units/ml Hydrophilic Ointment (Lip Therapy Vaseline) 1 applic TP Q2HR PRN PRN Reason: Dry Lips Fentanyl Citrate (Fentanyl Drip Premix) 2,000 mcg in 100 mls @ 5.67 mls/hr IV TITR RAMON; Protocol Last Titration: 11/04/21 09:15 Dose: 2 mcg/kg/hr, 11.34 mls/hr NORepinephrine/NS 8 MG-250 ML (Norepinephrine/Ns 8 Mg-250 Ml (Double Conc)) 8 mg in 250 mls @ 3.75 mls/hr IV TITRATE RAMON; Protocol Last Titration: 11/04/21 07:00 Dose: 0 mcg/min, 0 mls/hr Heparin Sodium/Sodium Chloride (Heparin/ 0.45% Nacl-25,000 Unit/500 Ml) 25,000 unit in 500 mls @ 30 mls/hr IV TITR RAMON; Protocol Last Titration: 11/04/21 12:04 Dose: 1,700 units/hr, 34 mls/hr Amiodarone HCl 900 mg/ (Dextrose) 500 mls @ 33.333 mls/hr IV DIRECT RAMON; Protocol Last Infusion: 11/04/21 09:16 Dose: 0.5 mg/min, 16.667 mls/hr Insulin Human Lispro (Insulin Lispro 100 Unit/Ml) 0 unit SUB-Q Q6HR RAMON; Protocol Last Admin: 11/04/21 14:29 Dose: 1 unit Methylprednisolone Sodium Succinate (Methylprednisolone Sod Succinate 40 Mg/1 Ml Inj) 40 mg IV Q8HR RAMON Stop: 11/06/21 06:01 Last Admin: 11/04/21 14:06 Dose: 40 mg Multi-Ingred Cream/Lotion/Oil/Oint (Mineral Oil/Petrolatum, White Ophth Oint 3.5 Gm) 1 applic OU Q4HR PRN PRN Reason: Dry Eye(s) Quetiapine Fumarate (Quetiapine 25 Mg Tab) 50 mg PO BID RAMON Last Admin: 11/04/21 09:22 Dose: 50 mg Senna/Docusate Sodium (Sennosides/Docusate Sodium 8.6/50 Mg Tab) 1 tab FEEDTUBE BID [facility] Last Admin: 11/04/21 09:23 Dose: Not Given Simple Syrup (Simple Syrup 15 Ml) 15 ml FEEDTUBE PRN PRN PRN Reason: Hypoglycemia Simple Syrup (Simple Syrup 15 Ml) 30 ml FEEDTUBE PRN PRN PRN Reason: Hypoglycemia Sodium Bicarbonate (Sodium Bicarbonate 325 Mg Tab) 325 mg FEEDTUBE PRN PRN PRN Reason: For Clogged Feeding Tube Sodium Chloride (Sodium Chloride 0.9% 10 Ml Flush Syringe) 10 ml IV BID [facility] Last Admin: 11/04/21 09:23 Dose: 10 ml Sodium Chloride (Sodium Chloride 0.9% 10 Ml Flush Syringe) 10 ml IV PRN PRN PRN Reason: LINE FLUSH Review of Systems ROS unobtainable: due to endotracheal tube, due to mental status Exam - Vital Signs Vital signs: Vital Signs Pulse Ox 96 10/29/21 14:03 - General Appearance General appearance: sedated on ventilator, intubated EENT: ATNC, other (Blinks eyes) Respiratory: Decreased Breath Sounds, Other (Intubated) Heart: S1S2 Gastrointestinal: Present: normoactive bowel sounds, other (NG tube) Integumentary: no rash, warm and dry Neurologic: other (Intubated, blinks eyes) Musculoskeletal: Present: other (mild edema to BLE) Results - Lab Results 11/04/21 09:40 11/04/21 09:40 Most recent lab results ABG pH 7.223 pH Units (7.350-7.450) L 11/04/21 13:34 ABG pCO2 64.4 mm Hg 11/04/21 13:34 ABG pO2 71.3 mm Hg (80.0-90.0) L 11/04/21 13:34 ABG HCO3 25.9 mmol/L (20.0-26.0) 11/04/21 13:34 ABG O2 Saturation 92.8 % (95.0-99.0) L 11/04/21 13:34 Calcium 8.8 mg/dL (8.4-10.2) 11/04/21 09:40 Phosphorus 3.80 mg/dL (2.5-4.5) 11/04/21 09:40 Magnesium 3.00 mg/dL (1.7-2.3) H 11/04/21 09:40 Urine Creatinine 383.6 mg/dL (0.1-20.0) H 10/31/21 16:35 Urine Sodium 18 mmol/L 11/04/21 14:05 Assessment and Plan Assessment: Acute Renal Failure secondary to Ischemic ATN secondary to Sepsis, Cardiac arrest and Hypotension S/P Cardiac Arrest Acute Hypoxemic Respiratory Failure Acute DVT Sepsis CHF Anemia Hyperkalemia Plan: Renal labs reviewed. 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 Sepulveda
[2021-11-04] MEDS: fentaNYL 100 MCG/2 ML INJ IV PRN ×3 (15:14→19:21)
[2021-11-04 18:11] LABS: Creatinine,Urine 190.9 mg/dL (0.1-20.0); Protein/Creatinine Ratio,Urine 0.9
--- NOTE | 2021-11-04 18:35 | Ultrasound Report ---
ULTRASOUND RENAL INDICATION / CLINICAL INFORMATION: renal failure. COMPARISON: None available. FINDINGS: RIGHT KIDNEY: Length = 9.2 cm. - Echogenicity: Normal. - Cortical Thickness: Mildly thin - Hydronephrosis: None. - Cyst / Mass: None. - Stones: None seen. LEFT KIDNEY: Length = 10.3 cm. - Echogenicity: Normal. - Cortical Thickness: Thin - Hydronephrosis: None. - Cyst / Mass: None. - Stones: None seen. URINARY BLADDER: No significant abnormality. FREE FLUID: None. ADDITIONAL FINDINGS: None. IMPRESSION: 1. Thinning of the bilateral renal cortices which can be seen with medical renal disease. Signer Name: Jose Cullen DO Signed: 11/04/2021 6:31 PM Workstation Name: [id number]
[2021-11-05] MEDS: INSULIN LISPRO 100 UNIT/ML SUB-Q SCH ×5 (00:26→17:47)
[2021-11-05] MEDS: diphenhydrAMINE 50 MG/ML VIAL IV SCH ×2 (03:23→15:26)
--- NOTE | 2021-11-05 03:39 | XRay Report ---
CHEST 1 VIEW INDICATION / CLINICAL INFORMATION: follow up respiratory failure. COMPARISON: Chest x-ray 11/04/2021 FINDINGS: SUPPORT DEVICES: Stable, satisfactory device positioning. HEART / MEDIASTINUM: Stable. LUNGS / PLEURA: Right perihilar and left basilar opacities without significant change. No significant right pneumothorax. ADDITIONAL FINDINGS: No significant additional findings. IMPRESSION: 1. No adverse interval change in the chest. No significant right pneumothorax. Signer Name: Martínez Rosenberg II, MD Signed: 11/05/2021 3:35 AM Workstation Name: [id number]
[2021-11-05 04:50] LABS: Hematocrit 31.1 % (30.3-42.9); Hemoglobin 9.7 gm/dl (10.1-14.3); Mean Corpuscular HGB Conc 31 % (30-34); Mean Corpuscular Volume 85 fl (79-97); Red Blood Count 3.64 M/mm3 (3.65-5.03); Red Cell Distribution Width 16.4 % (13.2-15.2)
[2021-11-05 05:01] LABS: Calcium 8.9 mg/dL (8.4-10.2)
[2021-11-05 05:13] LABS: Platelet Count 224 K/mm3 (140-440)
[2021-11-05] MEDS: methylPREDNISolone Sod Succinate 40 MG/1 ML INJ IV SCH ×3 (05:41→22:30)
[2021-11-05] MEDS: fentaNYL DRIP Premix 2,000 MCG/100 ML BAG IV SCH ×5 (06:40→22:28)
[2021-11-05] MEDS: AMIODARONE 900 MG in DEXTROSE 5% IN WATER 482 ML IV SCH (08:29)
[2021-11-05] MEDS: HEPARIN/ 0.45% NACL DRIP 25,000 UNIT/500 ML BAG IV SCH (08:29)
[2021-11-05] MEDS: fentaNYL 100 MCG/2 ML INJ IV PRN (08:29)
[2021-11-05] MEDS ORDERED: SODIUM POLYSTYRENE 15 GM/60 ML ORAL LIQD PO ONE ×3 (09:00→23:33)
[2021-11-05] MEDS: FAMOTIDINE 20 MG/2 ML INJ IV SCH (09:02)
[2021-11-05] MEDS: SENNOSIDES/DOCUSATE SODIUM 8.6/50 MG TAB FEEDTUBE SCH ×2 (09:02→22:30)
[2021-11-05] MEDS: QUEtiapine 25 MG TAB PO SCH (09:02)
[2021-11-05 10:26] LABS: ABG Base Excess -1.5 mmol/L (-2.0-3.0); ABG HCO3 26.2 mmol/L (20.0-26.0); ABG Methemoglobin 0.4 % (0.0-1.5); ABG Oxygen Saturation 93.1 % (95.0-99.0); ABG PCO2 61.4 mm Hg; ABG PH 7.248 pH Units (7.350-7.450); ABG PO2 73.7 mm Hg (80.0-90.0)
--- NOTE | 2021-11-05 11:15 | Progress Note ---
Assessment and Plan Assessment: Acute Renal Failure secondary to Ischemic ATN secondary to Sepsis, Cardiac arrest and Hypotension S/P Cardiac Arrest Acute Hypoxemic Respiratory Failure Acute DVT Sepsis CHF Anemia Hyperkalemia Plan: Renal labs reviewed. Serum creatinine slightly up, monitor. 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 pneumothorax; pneumonia; AMS; DVT's; SIERRA; Obesity Interval history: Intubated on Vent. In ICU. K high. Objective - Exam Narrative Exam: - General Appearance General appearance: sedated on ventilator, intubated EENT: ATNC, other (Blinks eyes) Respiratory: Decreased Breath Sounds, Other (Intubated) Heart: S1S2 Gastrointestinal: Present: normoactive bowel sounds, other (NG tube) Integumentary: no rash, warm and dry Neurologic: other (Intubated, blinks eyes) Musculoskeletal: Present: other (mild edema to BLE) - Vital Signs Vital signs: Vital Signs - 12hr 11/04/21 11/05/21 11/05/21 23:30 00:00 00:25 Temperature 97.3 F L Pulse Rate 141 H 140 H 91 H Pulse Rate [ 97 H From Monitor] Respiratory 15 15 Rate Blood Pressure 108/77 116/74 114/74 O2 Sat by Pulse 97 96 97 Oximetry 11/05/21 11/05/21 11/05/21 00:30 01:00 01:30 Temperature Pulse Rate 96 H 117 H 133 H Pulse Rate [ From Monitor] Respiratory 14 13 14 Rate Blood Pressure 126/60 126/60 115/70 O2 Sat by Pulse 96 96 96 Oximetry 11/05/21 11/05/21 11/05/21 02:00 02:30 02:49 Temperature 97.5 F L Pulse Rate 125 H 116 H Pulse Rate [ From Monitor] Respiratory 13 15 Rate Blood Pressure 106/60 102/62 O2 Sat by Pulse 97 97 Oximetry 11/05/21 11/05/21 11/05/21 03:00 03:09 03:30 Temperature Pulse Rate 118 H 145 H 146 H Pulse Rate [ From Monitor] Respiratory 14 15 Rate Blood Pressure 102/62 124/86 124/86 O2 Sat by Pulse 96 97 94 Oximetry 11/05/21 11/05/21 11/05/21 04:00 04:30 05:00 Temperature Pulse Rate 144 H 144 H 145 H Pulse Rate [ 141 H From Monitor] Respiratory 15 13 11 L Rate Blood Pressure 148/96 142/91 126/85 O2 Sat by Pulse 96 96 97 Oximetry 11/05/21 11/05/21 11/05/21 05:30 06:00 06:30 Temperature Pulse Rate 142 H 146 H 129 H Pulse Rate [ From Monitor] Respiratory 17 16 14 Rate Blood Pressure 154/109 160/98 160/98 O2 Sat by Pulse 98 97 96 Oximetry 11/05/21 11/05/21 11/05/21 07:00 07:30 07:48 Temperature Pulse Rate 109 H 108 H 138 H Pulse Rate [ From Monitor] Respiratory 17 14 Rate Blood Pressure 105/72 135/63 135/63 O2 Sat by Pulse 96 97 98 Oximetry 11/05/21 11/05/21 11/05/21 07:55 07:58 08:00 Temperature 97.3 F L Pulse Rate 109 H 143 H Pulse Rate [ 109 H From Monitor] Respiratory 29 H 24 Rate Blood Pressure 172/104 O2 Sat by Pulse 96 97 Oximetry 11/05/21 11/05/21 11/05/21 08:30 09:00 09:30 Temperature Pulse Rate 143 H 126 H 117 H Pulse Rate [ From Monitor] Respiratory 22 14 14 Rate Blood Pressure 158/102 158/102 104/64 O2 Sat by Pulse 96 95 95 Oximetry 11/05/21 10:00 Temperature Pulse Rate 109 H Pulse Rate [ From Monitor] Respiratory 14 Rate Blood Pressure 88/64 O2 Sat by Pulse 95 Oximetry - Lab 11/05/21 04:20 11/05/21 Unknown Most recent lab results ABG pH 7.248 pH Units (7.350-7.450) L 11/05/21 10:05 ABG pCO2 61.4 mm Hg 11/05/21 10:05 ABG pO2 73.7 mm Hg (80.0-90.0) L 11/05/21 10:05 ABG HCO3 26.2 mmol/L (20.0-26.0) H 11/05/21 10:05 ABG O2 Saturation 93.1 % (95.0-99.0) L 11/05/21 10:05 Calcium 8.9 mg/dL (8.4-10.2) 11/05/21 04:20 Phosphorus 3.80 mg/dL (2.5-4.5) 11/04/21 09:40 Magnesium 3.00 mg/dL (1.7-2.3) H 11/04/21 09:40 Urine Creatinine 190.9 mg/dL (0.1-20.0) H 11/04/21 Unknown Urine Sodium 10 mmol/L 11/04/21 Unknown Urine Total Protein 172 mg/dL (5-11.8) H 11/04/21 Unknown Medications & Allergies - Medications Allergies/Adverse Reactions: Allergies No Known Allergies Allergy (Verified 10/29/21 14:01) Active Medications: Generic Name Dose Route Start Last Admin Trade Name Freq PRN Reason Stop Dose Admin Acetaminophen 650 mg 10/29/21 17:04 11/03/21 11:35 Acetaminophen 325 Mg Tab PO 650 mg Q6H PRN Administration Pain, Mild (1-3) Acetaminophen 650 mg 10/29/21 17:04 Acetaminophen 650 Mg Rect Supp [place] Q6H PRN Pain MILD(1-3)/Fever >100.5/NIEVES Lipase/Protease/Amylase 1 each 10/31/21 08:56 Lipase 10,500/Protease 25,000/Amylase 43,750 (Units) Dr Ivory FEEDTUBE PRN PRN For Clogged Feeding Tube Dextrose 50 ml 10/30/21 15:21 Dextrose 50% In Water (25gm) 50 Ml Syringe IV Q30MIN PRN Hypoglycemia Protocol Dextrose 0 ml 11/04/21 13:48 Dextrose 10% *Hypoglycemia IV PRN PRN Hypoglycemia Diphenhydramine HCl 25 mg 11/03/21 15:00 11/05/21 03:23 Diphenhydramine 50 Mg/Ml Vial IV 11/06/21 03:01 25 mg Q12H RAMON Administration Famotidine 20 mg 11/03/21 22:00 11/05/21 09:02 Famotidine 20 Mg/2 Ml Inj IV 20 mg BID RAMON Administration Fentanyl 50 mcg 11/04/21 14:32 11/05/21 08:29 Fentanyl 100 Mcg/2 Ml Inj IV 50 mcg Q2H PRN Administration Pain, Moderate (4-6) Heparin Sodium (Porcine) 4,300 unit 10/30/21 17:00 Heparin 10,000 Units/10 Ml Vial 40 unit/kg (4300 unit) IV Q6H PRN Anti-Xa Assay < 0.1 units/ml Hydrophilic Ointment 1 applic 10/29/21 14:29 Lip Therapy Vaseline TP Q2HR PRN Dry Lips Fentanyl Citrate 2,000 mcg in 100 mls @ 5.67 mls/hr 10/29/21 15:00 11/05/21 07:49 Fentanyl Drip Premix IV Infused TITR RAMON Titration Protocol 1 MCG/KG/HR NORepinephrine/NS 8 MG-250 ML 8 mg in 250 mls @ 3.75 mls/hr 10/29/21 15:00 11/04/21 07:00 Norepinephrine/Ns 8 Mg-250 Ml (Double Conc) IV 0 mcg/min TITRATE RAMON 0 mls/hr Titration Protocol 2 MCG/MIN Heparin Sodium/Sodium Chloride 25,000 unit in 500 mls @ 30 mls/hr 10/30/21 17:00 11/05/21 08:29 Heparin/ 0.45% Nacl-25,000 Unit/500 Ml IV 1,700 units/hr TITR RAMON 34 mls/hr Administration Protocol 1,500 UNITS/HR Amiodarone HCl 900 mg/ 500 mls @ 33.333 mls/hr 11/03/21 11:00 11/05/21 08:29 Dextrose IV 0.5 mg/min DIRECT RAMON 16.667 mls/hr Administration Protocol 1 MG/MIN Insulin Glargine 10 units 11/05/21 22:00 Insulin Glargine 100 Units/Ml SUB-Q QHS RAMON Insulin Human Lispro 0 unit 10/30/21 16:00 11/05/21 05:41 Insulin Lispro 100 Unit/Ml SUB-Q 3 unit Q6HR [facility] Administration Protocol Methylprednisolone Sodium Succinate 40 mg 11/03/21 15:00 11/05/21 05:41 Methylprednisolone Sod Succinate 40 Mg/1 Ml Inj IV 11/06/21 06:01 40 mg Q8HR [facility] Administration Multi-Ingred Cream/Lotion/Oil/Oint 1 applic 10/29/21 14:29 Mineral Oil/Petrolatum, White Ophth Oint 3.5 Gm OU Q4HR PRN Dry Eye(s) Quetiapine Fumarate 50 mg 11/02/21 22:00 11/05/21 09:02 Quetiapine 25 Mg Tab PO 50 mg BID RAMON Administration Senna/Docusate Sodium 1 tab 10/29/21 15:00 11/05/21 09:02 Sennosides/Docusate Sodium 8.6/50 Mg Tab FEEDTUBE 1 tab BID RAMON Administration Simple Syrup 15 ml 10/31/21 08:56 Simple Syrup 15 Ml FEEDTUBE PRN PRN Hypoglycemia Simple Syrup 30 ml 10/31/21 08:56 Simple Syrup 15 Ml FEEDTUBE PRN PRN Hypoglycemia Sodium Bicarbonate 325 mg 10/31/21 08:56 Sodium Bicarbonate 325 Mg Tab FEEDTUBE PRN PRN For Clogged Feeding Tube Sodium Chloride 10 ml 10/29/21 22:00 11/05/21 09:02 Sodium Chloride 0.9% 10 Ml Flush Syringe IV 10 ml BID RAMON Administration Sodium Chloride 10 ml 10/29/21 17:04 Sodium Chloride 0.9% 10 Ml Flush Syringe IV PRN PRN LINE FLUSH
[2021-11-05] MEDS ORDERED: HALOPERIDOL LACTATE 5 MG/1 ML INJ IV ONE (13:00)
--- NOTE | 2021-11-05 13:08 | Progress Note ---
Assessment and Plan Acute hypoxemic respiratory failure on MVS Cardiac arrest with ROSC Acute DVT Right pneumothorax Shock (septic +/- cardiogenic) Possible aspiration pneumonia SIERRA Altered mental status/acute encephalopathy Elevated serum transaminases, likely shock liver Metabolic acidosis Obesity Leukocytosis Hypokalemia Lactic acidosis (Had extended discussion with family with [employer] project manager in [place]; explained her disease processes at length and answered their questions at length; I explained her CMOP, SIERRA and her AMS as bothersome issues. I explained the VTE possibly contributing to the initial cardiac arrest. I explained her baseline KOLBY/OHS is also a contributory factor. Overall i explained the next 3-4 days should give us a clearer picture of her progress after nephrology and neurology input is received) - received Kayexalate, bicarb, glucose and insulin for hyperkalemia - nephrology input appreciated - increase Seroquel to 100 mg qhs and 75 mg qam - repeat ABG in am to monitor acidosis - complete angioedema therapy - Amiodarone per cardiology (0.5 mg/min) - continue care as below otherwise; - vasopressors for target MAP > 65 mmHg - continue full anticoagulation with IV Heparin re: DVT - continue Daily SAT and SBT assessment as tolerated - continue to wean supplemental oxygen for target O2 sat's > 90% acutely - VAP bundle addressed - continue lung protective strategies - continue bronchodilators with pulmonary hygiene per RT - wean per pulmonary driven protocols otherwise - continue accuchecks with glycemic control per SSI (While critically ill target blood glucose of 140-180 mg/dL; avoid hypoglycemia) - sedation prn for target RASS 0 to -1 - avoid nephrotoxins, renally dose all medications - continue to avoid benzodiazepine's, reduce the possibility of delirium - AB's per ID rec's - prn analgesia per CPOT score - Maintenance of sleep-wake cycle, avoid delirium - continue enteral nutritional support at goal rate as tolerated - G.I. & VTE prophylaxis - PT/OT/ROM exercises - continue mobility protocols for pressure ulcer prophylaxis - Monitor hemodynamics closely - continue other care per attending / other consultants - discharge planning ongoing concurrently COVID SPECIFIC INTERVENTIONS - COVID-19 PCR negative .... Re-evaluate in am & prn CONDITION: CRITICAL PROGNOSIS: GUARDED CODE STATUS: FULL CODE The high probability of a clinically significant, sudden or life-threatening deterioration of the [respiratory, cardiovascular, renal & neurologic] system(s) required my full and direct attention, intervention and personal management. The aggregate critical care time was [35] minutes without overlap. Time includes spent on; [x] Data Review and interpretation [x] Patient assessment and monitoring of vital signs [x] Documentation [x] Medication orders and management Subjective Date of service: 11/05/21 Principal diagnosis: AHRF; Cardiac arrest; R. pneumothorax; pneumonia; AMS; DVT's; SIERRA; Obesity Interval history: Patient is seen today for: Acute hypoxemic respiratory failure; Cardiac arrest with ROSC; Right pneumothorax; pneumonia; AMS; bilateral DVT's; SIERRA; Obesity Seen and examined at bedside; 24hour events reviewed; nursing and respiratory care staff consulted; no adverse overnight events reported to me; remains on MV S; AMS is persistent but she is appropriate during SAT's; agitated earlier; off vasopressors; azotemia worse and hyperkalemia is persistent; no emesis or overt aspiration and no gross bleeding Objective Vital Signs - 12hr 11/05/21 11/05/21 11/05/21 01:30 02:00 02:30 Temperature Pulse Rate 133 H 125 H 116 H Pulse Rate [ From Monitor] Respiratory 14 13 15 Rate Blood Pressure 115/70 106/60 102/62 O2 Sat by Pulse 96 97 97 Oximetry 11/05/21 11/05/21 11/05/21 02:49 03:00 03:09 Temperature 97.5 F L Pulse Rate 118 H 145 H Pulse Rate [ From Monitor] Respiratory 14 Rate Blood Pressure 102/62 124/86 O2 Sat by Pulse 96 97 Oximetry 11/05/21 11/05/21 11/05/21 03:30 04:00 04:30 Temperature Pulse Rate 146 H 144 H 144 H Pulse Rate [ 141 H From Monitor] Respiratory 15 15 13 Rate Blood Pressure 124/86 148/96 142/91 O2 Sat by Pulse 94 96 96 Oximetry 11/05/21 11/05/21 11/05/21 05:00 05:30 06:00 Temperature Pulse Rate 145 H 142 H 146 H Pulse Rate [ From Monitor] Respiratory 11 L 17 16 Rate Blood Pressure 126/85 154/109 160/98 O2 Sat by Pulse 97 98 97 Oximetry 11/05/21 11/05/21 11/05/21 06:30 07:00 07:30 Temperature Pulse Rate 129 H 109 H 108 H Pulse Rate [ From Monitor] Respiratory 14 17 14 Rate Blood Pressure 160/98 105/72 135/63 O2 Sat by Pulse 96 96 97 Oximetry 11/05/21 11/05/21 11/05/21 07:48 07:55 07:58 Temperature Pulse Rate 138 H 109 H Pulse Rate [ 109 H From Monitor] Respiratory 29 H Rate Blood Pressure 135/63 O2 Sat by Pulse 98 96 Oximetry 11/05/21 11/05/21 11/05/21 08:00 08:30 09:00 Temperature 97.3 F L Pulse Rate 143 H 143 H 126 H Pulse Rate [ From Monitor] Respiratory 24 22 14 Rate Blood Pressure 172/104 158/102 158/102 O2 Sat by Pulse 97 96 95 Oximetry 11/05/21 11/05/21 11/05/21 09:30 10:00 12:00 Temperature Pulse Rate 117 H 109 H 147 H Pulse Rate [ 146 H From Monitor] Respiratory 14 14 22 Rate Blood Pressure 104/64 88/64 O2 Sat by Pulse 95 95 94 Oximetry 11/05/21 12:15 Temperature Pulse Rate 147 H Pulse Rate [ From Monitor] Respiratory Rate Blood Pressure 144/96 O2 Sat by Pulse 95 Oximetry Constitutional: no acute distress, other (elderly obese female without increased respiratory effort at rest) Eyes: non-icteric, other (+ mild periorbital phymosis) ENT: oropharynx moist, other (ETT 23 cm KRYSTAL) Neck: supple, no lymphadenopathy, no JVD Effort: mildly labored Ascultation: Bilateral: diminished breath sounds, rhonchi Percussion: Bilateral: not dull Cardiovascular: irregular rhythm, other (no R/M) Gastrointestinal: normoactive bowel sounds, soft, non-tender, non-distended (protuberant) Integumentary: normal Extremities: no cyanosis, pulses normal, no ischemia or petechiae, edema Neurologic: non-focal exam (grossly), pupils equal and round, motor strength normal and (weak), unable to assess Psychiatric: other (unable to assess re: AMS) CBC and BMP: 11/05/21 04:20 11/05/21 Unknown ABG, PT/INR, D-dimer: ABG ABG pH 7.248 pH Units (7.350-7.450) L 11/05/21 10:05 ABG pCO2 61.4 mm Hg 11/05/21 10:05 ABG pO2 73.7 mm Hg (80.0-90.0) L 11/05/21 10:05 ABG O2 Saturation 93.1 % (95.0-99.0) L 11/05/21 10:05 PT/INR, D-dimer PT 17.2 Sec. (12.2-14.9) H 10/30/21 16:30 INR 1.27 (0.87-1.13) H 10/30/21 16:30 D-Dimer > 52081 ng/mlDDU (0-234) H 10/30/21 Unknown Abnormal lab findings: Abnormal Labs 10/29/21 10/29/21 10/29/21 15:10 15:10 15:10 WBC 27.8 H RBC Hgb Hct MCH 27 L RDW Plt Count Lymph % (Auto) Lymph # (Auto) [place] # (Auto) Seg Neutrophils % Seg Neuts % (Manual) 78.0 H Lymphocytes % (Manual) 10.0 L Seg Neutrophils # Seg Neutrophils # Man 21.7 H Monocytes # (Manual) 1.4 H PT INR APTT D-Dimer Heparin Anti-Xa Level ABG pH ABG pO2 ABG HCO3 ABG O2 Saturation ABG Base Excess ABG Hemoglobin Oxyhemoglobin Sodium Potassium Chloride Carbon Dioxide BUN Creatinine Glucose POC Glucose Hemoglobin A1c Lactic Acid 6.80 H* Calcium Magnesium Ferritin AST ALT Alkaline Phosphatase Lactate Dehydrogenase Troponin T 0.089 H C-Reactive Protein Total Protein Albumin LDL Cholesterol Direct Urine Creatinine Urine Total Protein Salicylates Acetaminophen 10/29/21 10/29/21 10/29/21 15:10 15:10 15:10 WBC RBC Hgb Hct MCH RDW Plt Count Lymph % (Auto) Lymph # (Auto) [place] # (Auto) Seg Neutrophils % Seg Neuts % (Manual) Lymphocytes % (Manual) Seg Neutrophils # Seg Neutrophils # Man Monocytes # (Manual) PT INR APTT D-Dimer Heparin Anti-Xa Level ABG pH ABG pO2 ABG HCO3 ABG O2 Saturation ABG Base Excess ABG Hemoglobin Oxyhemoglobin Sodium 136 L Potassium 2.8 L* Chloride 93.4 L Carbon Dioxide 20 L BUN Creatinine Glucose 330 H POC Glucose Hemoglobin A1c Lactic Acid Calcium Magnesium Ferritin AST 1013 H ALT 1289 H Alkaline Phosphatase 246 H Lactate Dehydrogenase Troponin T C-Reactive Protein Total Protein Albumin LDL Cholesterol Direct Urine Creatinine Urine Total Protein Salicylates < 0.3 L Acetaminophen 5.0 L 10/29/21 10/29/21 10/29/21 15:11 16:01 19:29 WBC RBC Hgb Hct MCH RDW Plt Count Lymph % (Auto) Lymph # (Auto) [place] # (Auto) Seg Neutrophils % Seg Neuts % (Manual) Lymphocytes % (Manual) Seg Neutrophils # Seg Neutrophils # Man Monocytes # (Manual) PT INR APTT D-Dimer Heparin Anti-Xa Level ABG pH 7.307 L ABG pO2 64.1 L ABG HCO3 ABG O2 Saturation 90.8 L ABG Base Excess -2.9 L ABG Hemoglobin Oxyhemoglobin 89.3 L Sodium Potassium Chloride Carbon Dioxide BUN Creatinine Glucose POC Glucose Hemoglobin A1c Lactic Acid 2.60 H* Calcium Magnesium 2.90 H Ferritin AST ALT Alkaline Phosphatase Lactate Dehydrogenase Troponin T C-Reactive Protein Total Protein Albumin LDL Cholesterol Direct Urine Creatinine Urine Total Protein Salicylates Acetaminophen 10/29/21 10/29/21 10/30/21 19:40 22:34 04:30 WBC 16.2 H RBC Hgb Hct MCH 26 L RDW 15.5 H Plt Count Lymph % (Auto) 6.2 L Lymph # (Auto) 1.0 L [place] # (Auto) 0.9 H Seg Neutrophils % 88.1 H Seg Neuts % (Manual) Lymphocytes % (Manual) Seg Neutrophils # 14.2 H Seg Neutrophils # Man Monocytes # (Manual) PT INR APTT D-Dimer Heparin Anti-Xa Level ABG pH ABG pO2 ABG HCO3 ABG O2 Saturation ABG Base Excess ABG Hemoglobin Oxyhemoglobin Sodium Potassium Chloride Carbon Dioxide BUN Creatinine Glucose POC Glucose Hemoglobin A1c Lactic Acid Calcium Magnesium Ferritin AST ALT Alkaline Phosphatase Lactate Dehydrogenase Troponin T 1.950 H* D 1.150 H* D C-Reactive Protein Total Protein Albumin LDL Cholesterol Direct 43 L Urine Creatinine Urine Total Protein Salicylates Acetaminophen 10/30/21 10/30/21 10/30/21 04:30 04:35 05:45 WBC RBC Hgb Hct MCH RDW Plt Count Lymph % (Auto) Lymph # (Auto) [place] # (Auto) Seg Neutrophils % Seg Neuts % (Manual) Lymphocytes % (Manual) Seg Neutrophils # Seg Neutrophils # Man Monocytes # (Manual) PT INR APTT D-Dimer Heparin Anti-Xa Level ABG pH ABG pO2 69.5 L ABG HCO3 ABG O2 Saturation ABG Base Excess -2.7 L ABG Hemoglobin Oxyhemoglobin 94.7 L Sodium Potassium Chloride Carbon Dioxide 21 L BUN Creatinine Glucose 159 H POC Glucose 151 H Hemoglobin A1c Lactic Acid Calcium 7.9 L D Magnesium Ferritin AST 461 H ALT 686 H Alkaline Phosphatase 130 H Lactate Dehydrogenase Troponin T C-Reactive Protein Total Protein 5.6 L D Albumin 3.2 L LDL Cholesterol Direct Urine Creatinine Urine Total Protein Salicylates Acetaminophen 10/30/21 10/30/21 10/30/21 11:24 15:59 16:30 WBC RBC Hgb Hct MCH RDW Plt Count Lymph % (Auto) Lymph # (Auto) [place] # (Auto) Seg Neutrophils % Seg Neuts % (Manual) Lymphocytes % (Manual) Seg Neutrophils # Seg Neutrophils # Man Monocytes # (Manual) PT 17.2 H INR 1.27 H APTT 44.4 H D-Dimer Heparin Anti-Xa Level ABG pH ABG pO2 ABG HCO3 ABG O2 Saturation ABG Base Excess ABG Hemoglobin Oxyhemoglobin Sodium Potassium Chloride Carbon Dioxide BUN Creatinine Glucose POC Glucose 153 H 109 H Hemoglobin A1c Lactic Acid Calcium Magnesium Ferritin AST ALT Alkaline Phosphatase Lactate Dehydrogenase Troponin T C-Reactive Protein Total Protein Albumin LDL Cholesterol Direct Urine Creatinine Urine Total Protein Salicylates Acetaminophen 10/30/21 10/30/21 10/30/21 23:00 Unknown Unknown WBC RBC Hgb Hct MCH RDW Plt Count Lymph % (Auto) Lymph # (Auto) [place] # (Auto) Seg Neutrophils % Seg Neuts % (Manual) Lymphocytes % (Manual) Seg Neutrophils # Seg Neutrophils # Man Monocytes # (Manual) PT INR APTT D-Dimer > 57773 H Heparin Anti-Xa Level 0.82 H ABG pH ABG pO2 ABG HCO3 ABG O2 Saturation ABG Base Excess ABG Hemoglobin Oxyhemoglobin Sodium Potassium Chloride Carbon Dioxide BUN Creatinine Glucose POC Glucose Hemoglobin A1c Lactic Acid Calcium Magnesium Ferritin 208.4 H AST ALT Alkaline Phosphatase Lactate Dehydrogenase Troponin T C-Reactive Protein Total Protein Albumin LDL Cholesterol Direct Urine Creatinine Urine Total Protein Salicylates Acetaminophen 10/30/21 10/31/21 10/31/21 Unknown 04:30 04:30 WBC 14.4 H RBC Hgb Hct MCH 26 L RDW Plt Count Lymph % (Auto) Lymph # (Auto) [place] # (Auto) Seg Neutrophils % Seg Neuts % (Manual) Lymphocytes % (Manual) Seg Neutrophils # Seg Neutrophils # Man Monocytes # (Manual) PT INR APTT D-Dimer Heparin Anti-Xa Level ABG pH ABG pO2 ABG HCO3 ABG O2 Saturation ABG Base Excess ABG Hemoglobin Oxyhemoglobin Sodium Potassium 3.5 L Chloride 107.5 H Carbon Dioxide 20 L BUN 28 H Creatinine 1.7 H Glucose 113 H POC Glucose Hemoglobin A1c Lactic Acid Calcium 7.9 L Magnesium Ferritin AST ALT Alkaline Phosphatase Lactate Dehydrogenase 469 H Troponin T C-Reactive Protein 13.40 H Total Protein Albumin LDL Cholesterol Direct Urine Creatinine Urine Total Protein Salicylates Acetaminophen 10/31/21 10/31/21 10/31/21 04:30 05:11 15:30 WBC RBC Hgb Hct MCH RDW Plt Count Lymph % (Auto) Lymph # (Auto) [place] # (Auto) Seg Neutrophils % Seg Neuts % (Manual) Lymphocytes % (Manual) Seg Neutrophils # Seg Neutrophils # Man Monocytes # (Manual) PT INR APTT D-Dimer Heparin Anti-Xa Level ABG pH 7.222 L ABG pO2 61.5 L ABG HCO3 ABG O2 Saturation 86.2 L ABG Base Excess -6.3 L ABG Hemoglobin 11.2 L Oxyhemoglobin 84.5 L Sodium Potassium Chloride Carbon Dioxide BUN Creatinine Glucose POC Glucose 106 H Hemoglobin A1c 6.7 H Lactic Acid Calcium Magnesium Ferritin AST ALT Alkaline Phosphatase Lactate Dehydrogenase Troponin T C-Reactive Protein Total Protein Albumin LDL Cholesterol Direct Urine Creatinine Urine Total Protein Salicylates Acetaminophen 10/31/21 10/31/21 10/31/21 16:07 16:35 17:45 WBC RBC Hgb Hct MCH RDW Plt Count Lymph % (Auto) Lymph # (Auto) [place] # (Auto) Seg Neutrophils % Seg Neuts % (Manual) Lymphocytes % (Manual) Seg Neutrophils # Seg Neutrophils # Man Monocytes # (Manual) PT INR APTT D-Dimer Heparin Anti-Xa Level ABG pH 7.267 L ABG pO2 58.3 L ABG HCO3 ABG O2 Saturation 88.3 L ABG Base Excess -5.9 L ABG Hemoglobin 10.1 L Oxyhemoglobin 86.5 L Sodium Potassium Chloride Carbon Dioxide BUN Creatinine Glucose POC Glucose 115 H Hemoglobin A1c Lactic Acid Calcium Magnesium Ferritin AST ALT Alkaline Phosphatase Lactate Dehydrogenase Troponin T C-Reactive Protein Total Protein Albumin LDL Cholesterol Direct Urine Creatinine 383.6 H Urine Total Protein Salicylates Acetaminophen 11/01/21 11/01/21 11/01/21 00:06 05:08 06:00 WBC 12.6 H RBC 3.43 L Hgb 8.9 L Hct 28.7 L MCH 26 L RDW 15.7 H Plt Count 130 L Lymph % (Auto) Lymph # (Auto) [place] # (Auto) Seg Neutrophils % Seg Neuts % (Manual) Lymphocytes % (Manual) Seg Neutrophils # Seg Neutrophils # Man Monocytes # (Manual) PT INR APTT D-Dimer Heparin Anti-Xa Level ABG pH ABG pO2 ABG HCO3 ABG O2 Saturation ABG Base Excess ABG Hemoglobin Oxyhemoglobin Sodium Potassium Chloride Carbon Dioxide BUN Creatinine Glucose POC Glucose 114 H 120 H Hemoglobin A1c Lactic Acid Calcium Magnesium Ferritin AST ALT Alkaline Phosphatase Lactate Dehydrogenase Troponin T C-Reactive Protein Total Protein Albumin LDL Cholesterol Direct Urine Creatinine Urine Total Protein Salicylates Acetaminophen 11/01/21 11/01/21 11/01/21 06:00 11:43 14:00 WBC RBC Hgb Hct MCH RDW Plt Count Lymph % (Auto) Lymph # (Auto) [place] # (Auto) Seg Neutrophils % Seg Neuts % (Manual) Lymphocytes % (Manual) Seg Neutrophils # Seg Neutrophils # Man Monocytes # (Manual) PT INR APTT D-Dimer Heparin Anti-Xa Level ABG pH 7.349 L ABG pO2 75.6 L ABG HCO3 ABG O2 Saturation ABG Base Excess -3.9 L ABG Hemoglobin 9.8 L Oxyhemoglobin 93.5 L Sodium Potassium Chloride 114.1 H Carbon Dioxide 20 L BUN 33 H Creatinine Glucose 131 H POC Glucose 151 H Hemoglobin A1c Lactic Acid Calcium 7.7 L Magnesium Ferritin AST 79 H ALT 259 H Alkaline Phosphatase Lactate Dehydrogenase Troponin T C-Reactive Protein Total Protein 5.5 L Albumin 2.7 L LDL Cholesterol Direct Urine Creatinine Urine Total Protein Salicylates Acetaminophen 11/01/21 11/01/21 11/02/21 16:45 22:55 05:12 WBC RBC Hgb Hct MCH RDW Plt Count Lymph % (Auto) Lymph # (Auto) [place] # (Auto) Seg Neutrophils % Seg Neuts % (Manual) Lymphocytes % (Manual) Seg Neutrophils # Seg Neutrophils # Man Monocytes # (Manual) PT INR APTT D-Dimer Heparin Anti-Xa Level ABG pH ABG pO2 ABG HCO3 ABG O2 Saturation ABG Base Excess ABG Hemoglobin Oxyhemoglobin Sodium Potassium Chloride Carbon Dioxide BUN Creatinine Glucose POC Glucose 119 H 129 H 140 H Hemoglobin A1c Lactic Acid Calcium Magnesium Ferritin AST ALT Alkaline Phosphatase Lactate Dehydrogenase Troponin T C-Reactive Protein Total Protein Albumin LDL Cholesterol Direct Urine Creatinine Urine Total Protein Salicylates Acetaminophen 11/02/21 11/02/21 11/02/21 05:35 05:35 09:35 WBC 13.5 H RBC 3.60 L Hgb 9.7 L Hct MCH 27 L RDW 15.7 H Plt Count Lymph % (Auto) Lymph # (Auto) [place] # (Auto) Seg Neutrophils % Seg Neuts % (Manual) Lymphocytes % (Manual) Seg Neutrophils # Seg Neutrophils # Man Monocytes # (Manual) PT INR APTT D-Dimer Heparin Anti-Xa Level ABG pH 7.208 L ABG pO2 75.9 L ABG HCO3 ABG O2 Saturation 93.6 L ABG Base Excess -4.3 L ABG Hemoglobin 9.1 L Oxyhemoglobin 91.6 L Sodium Potassium 5.2 H D Chloride 112.6 H Carbon Dioxide BUN 32 H Creatinine Glucose 152 H POC Glucose Hemoglobin A1c Lactic Acid Calcium 8.2 L Magnesium 2.70 H Ferritin AST ALT Alkaline Phosphatase Lactate Dehydrogenase Troponin T C-Reactive Protein Total Protein Albumin LDL Cholesterol Direct Urine Creatinine Urine Total Protein Salicylates Acetaminophen 11/02/21 11/02/21 11/02/21 11:44 17:13 23:43 WBC RBC Hgb Hct MCH RDW Plt Count Lymph % (Auto) Lymph # (Auto) [place] # (Auto) Seg Neutrophils % Seg Neuts % (Manual) Lymphocytes % (Manual) Seg Neutrophils # Seg Neutrophils # Man Monocytes # (Manual) PT INR APTT D-Dimer Heparin Anti-Xa Level ABG pH ABG pO2 ABG HCO3 ABG O2 Saturation ABG Base Excess ABG Hemoglobin Oxyhemoglobin Sodium Potassium Chloride Carbon Dioxide BUN Creatinine Glucose POC Glucose 173 H 148 H 137 H Hemoglobin A1c Lactic Acid Calcium Magnesium Ferritin AST ALT Alkaline Phosphatase Lactate Dehydrogenase Troponin T C-Reactive Protein Total Protein Albumin LDL Cholesterol Direct Urine Creatinine Urine Total Protein Salicylates Acetaminophen 11/03/21 11/03/21 11/03/21 04:59 06:00 06:00 WBC RBC 3.43 L Hgb 9.1 L Hct 29.0 L MCH 26 L RDW 16.4 H Plt Count Lymph % (Auto) Lymph # (Auto) [place] # (Auto) Seg Neutrophils % Seg Neuts % (Manual) Lymphocytes % (Manual) Seg Neutrophils # Seg Neutrophils # Man Monocytes # (Manual) PT INR APTT D-Dimer Heparin Anti-Xa Level 0.17 L ABG pH ABG pO2 ABG HCO3 ABG O2 Saturation ABG Base Excess ABG Hemoglobin Oxyhemoglobin Sodium Potassium Chloride Carbon Dioxide BUN Creatinine Glucose POC Glucose 167 H Hemoglobin A1c Lactic Acid Calcium Magnesium Ferritin AST ALT Alkaline Phosphatase Lactate Dehydrogenase Troponin T C-Reactive Protein Total Protein Albumin LDL Cholesterol Direct Urine Creatinine Urine Total Protein Salicylates Acetaminophen 11/03/21 11/03/21 11/03/21 06:00 09:20 11:58 WBC RBC Hgb Hct MCH RDW Plt Count Lymph % (Auto) Lymph # (Auto) [place] # (Auto) Seg Neutrophils % Seg Neuts % (Manual) Lymphocytes % (Manual) Seg Neutrophils # Seg Neutrophils # Man Monocytes # (Manual) PT INR APTT D-Dimer Heparin Anti-Xa Level ABG pH 7.274 L ABG pO2 75.6 L ABG HCO3 ABG O2 Saturation 94.9 L ABG Base Excess -2.5 L ABG Hemoglobin 9.3 L Oxyhemoglobin 92.9 L Sodium 149 H Potassium Chloride 117.5 H Carbon Dioxide BUN 32 H Creatinine Glucose 173 H POC Glucose 192 H Hemoglobin A1c Lactic Acid Calcium 8.1 L Magnesium Ferritin AST ALT Alkaline Phosphatase Lactate Dehydrogenase Troponin T C-Reactive Protein Total Protein Albumin LDL Cholesterol Direct Urine Creatinine Urine Total Protein Salicylates Acetaminophen 11/03/21 11/03/21 11/04/21 18:22 Unknown 00:09 WBC RBC Hgb Hct MCH RDW Plt Count Lymph % (Auto) Lymph # (Auto) [place] # (Auto) Seg Neutrophils % Seg Neuts % (Manual) Lymphocytes % (Manual) Seg Neutrophils # Seg Neutrophils # Man Monocytes # (Manual) PT INR APTT D-Dimer Heparin Anti-Xa Level 0.29 L ABG pH ABG pO2 ABG HCO3 ABG O2 Saturation ABG Base Excess ABG Hemoglobin Oxyhemoglobin Sodium Potassium Chloride Carbon Dioxide BUN Creatinine Glucose POC Glucose 178 H 221 H Hemoglobin A1c Lactic Acid Calcium Magnesium Ferritin AST ALT Alkaline Phosphatase Lactate Dehydrogenase Troponin T C-Reactive Protein Total Protein Albumin LDL Cholesterol Direct Urine Creatinine Urine Total Protein Salicylates Acetaminophen 11/04/21 11/04/21 11/04/21 05:09 09:40 09:40 WBC 16.8 H RBC Hgb Hct MCH 27 L RDW 16.5 H Plt Count Lymph % (Auto) Lymph # (Auto) [place] # (Auto) Seg Neutrophils % Seg Neuts % (Manual) Lymphocytes % (Manual) Seg Neutrophils # Seg Neutrophils # Man Monocytes # (Manual) PT INR APTT D-Dimer Heparin Anti-Xa Level ABG pH ABG pO2 ABG HCO3 ABG O2 Saturation ABG Base Excess ABG Hemoglobin Oxyhemoglobin Sodium Potassium 5.9 H Chloride 108.5 H Carbon Dioxide BUN 54 H Creatinine 1.8 H Glucose 198 H POC Glucose 182 H Hemoglobin A1c Lactic Acid Calcium Magnesium 3.00 H Ferritin AST ALT Alkaline Phosphatase Lactate Dehydrogenase Troponin T C-Reactive Protein Total Protein Albumin LDL Cholesterol Direct Urine Creatinine Urine Total Protein Salicylates Acetaminophen 11/04/21 11/04/21 11/04/21 12:13 13:34 14:05 WBC RBC Hgb Hct MCH RDW Plt Count Lymph % (Auto) Lymph # (Auto) [place] # (Auto) Seg Neutrophils % Seg Neuts % (Manual) Lymphocytes % (Manual) Seg Neutrophils # Seg Neutrophils # Man Monocytes # (Manual) PT INR APTT D-Dimer Heparin Anti-Xa Level ABG pH 7.223 L ABG pO2 71.3 L ABG HCO3 ABG O2 Saturation 92.8 L ABG Base Excess ABG Hemoglobin 8.2 L Oxyhemoglobin 91.0 L Sodium Potassium Chloride Carbon Dioxide BUN Creatinine Glucose POC Glucose 184 H Hemoglobin A1c Lactic Acid Calcium Magnesium Ferritin AST ALT Alkaline Phosphatase Lactate Dehydrogenase Troponin T C-Reactive Protein Total Protein Albumin LDL Cholesterol Direct Urine Creatinine 184.6 H Urine Total Protein Salicylates Acetaminophen 11/04/21 11/04/21 11/05/21 18:02 Unknown 00:07 WBC RBC Hgb Hct MCH RDW Plt Count Lymph % (Auto) Lymph # (Auto) [place] # (Auto) Seg Neutrophils % Seg Neuts % (Manual) Lymphocytes % (Manual) Seg Neutrophils # Seg Neutrophils # Man Monocytes # (Manual) PT INR APTT D-Dimer Heparin Anti-Xa Level ABG pH ABG pO2 ABG HCO3 ABG O2 Saturation ABG Base Excess ABG Hemoglobin Oxyhemoglobin Sodium Potassium Chloride Carbon Dioxide BUN Creatinine Glucose POC Glucose 262 H 259 H Hemoglobin A1c Lactic Acid Calcium Magnesium Ferritin AST ALT Alkaline Phosphatase Lactate Dehydrogenase Troponin T C-Reactive Protein Total Protein Albumin LDL Cholesterol Direct Urine Creatinine 190.9 H Urine Total Protein 172 H Salicylates Acetaminophen 11/05/21 11/05/21 11/05/21 04:20 04:20 05:30 WBC 17.9 H RBC 3.64 L Hgb 9.7 L Hct MCH 27 L RDW 16.4 H Plt Count Lymph % (Auto) Lymph # (Auto) [place] # (Auto) Seg Neutrophils % Seg Neuts % (Manual) Lymphocytes % (Manual) Seg Neutrophils # Seg Neutrophils # Man Monocytes # (Manual) PT INR APTT D-Dimer Heparin Anti-Xa Level ABG pH ABG pO2 ABG HCO3 ABG O2 Saturation ABG Base Excess ABG Hemoglobin Oxyhemoglobin Sodium Potassium 5.6 H Chloride 108.4 H Carbon Dioxide BUN 71 H Creatinine 1.9 H Glucose 270 H POC Glucose 283 H Hemoglobin A1c Lactic Acid Calcium Magnesium Ferritin AST ALT Alkaline Phosphatase Lactate Dehydrogenase Troponin T C-Reactive Protein Total Protein Albumin LDL Cholesterol Direct Urine Creatinine Urine Total Protein Salicylates Acetaminophen 11/05/21 11/05/21 10:05 12:10 WBC RBC Hgb Hct MCH RDW Plt Count Lymph % (Auto) Lymph # (Auto) [place] # (Auto) Seg Neutrophils % Seg Neuts % (Manual) Lymphocytes % (Manual) Seg Neutrophils # Seg Neutrophils # Man Monocytes # (Manual) PT INR APTT D-Dimer Heparin Anti-Xa Level ABG pH 7.248 L ABG pO2 73.7 L ABG HCO3 26.2 H ABG O2 Saturation 93.1 L ABG Base Excess ABG Hemoglobin 8.9 L Oxyhemoglobin 91.4 L Sodium Potassium Chloride Carbon Dioxide BUN Creatinine Glucose POC Glucose 225 H Hemoglobin A1c Lactic Acid Calcium Magnesium Ferritin AST ALT Alkaline Phosphatase Lactate Dehydrogenase Troponin T C-Reactive Protein Total Protein Albumin LDL Cholesterol Direct Urine Creatinine Urine Total Protein Salicylates Acetaminophen Chest x-ray: image reviewed (stable; no PTX; tubes and lines in good position) Allied health notes reviewed: nursing
[2021-11-05 14:03] LABS: Calcium 8.9 mg/dL (8.4-10.2)
[2021-11-05] MEDS ORDERED: DEXTROSE 50% IN WATER (25GM) 50 ML SYRINGE IV ONE ×2 (14:24→23:35)
[2021-11-05] MEDS ORDERED: BUMETANIDE 1 MG/4 ML INJ IV ONE ×2 (14:24→23:38)
[2021-11-05] MEDS ORDERED: INSULIN REGULAR, HUMAN 100 UNITS/1 ML IV ONE ×2 (14:24→23:34)
[2021-11-05] MEDS ORDERED: CALCIUM GLUCONATE 2,000 MG in SODIUM CHLORIDE 0.9% 100 ML IV ONE ×2 (14:24→23:36)
[2021-11-05] MEDS ORDERED: SODIUM BICARBONATE 2 MEQ/2 ML SYRINGE IV ONE (14:27)
[2021-11-05] MEDS ORDERED: SODIUM BICARB 8.4% 50 MEQ/50 ML SYRINGE IV ONE ×2 (15:00→23:39)
--- NOTE | 2021-11-05 15:18 | Progress Note ---
Assessment and Plan Assessment and plan: This is a 66-year-old female with past medical history of HTN and Obesity admitted for septic shock, s/p cardiac arrest with ROSC in the field now intubated and on ventilatory support Neuro: Acute Metabolic encephalopathy -Avoid delirium -Reorientation as needed -Sedated with fentanyl -RASS goal 0 to -1 -As needed analgesia and haldol -Seroquel started 11/01 -Maintain sleep-wake cycle -CT head no acute focal parenchymal lesion in the brain -Neurology consulted, appreciate recommendations Cardiac: Atrial fibrillation/atrial flutter s/p cardiac arrest, HFrEF, hyp otension, h/o htn -Outside hospital cardiac arrest with ROSC -Cardiology consulted, appreciate recommendations -s/p vasopressor support with levophed -Echocardiogram shows left ventricular systolic function severely decreased, LVEF 25 to 30%, no pericardial effusion -proBNP 5622 -BP monitoring per protocol -hold home antihtn regimen -Amiodarone bolus with drip Respiratory: Acute hypoxic respiratory failure, right pneumothorax -CCM consulted, appreciate recommendations -A.m. vent settings: Assist-control rate 14, tidal volume 500, PEEP 8, FiO2 35% -See RT notes for titration -ABG and CXR per CCM -VAP bundle -SPO2 monitoring -Right chest tube to wall suction -Past 24 hours drainage: 60 mL GI: Protein calorie malnutrion, transaminitis likely shocked liver -24 hours + 427 mL -PPI -NTR consulted for tube feedings -Trend LFTs -BM: 11/04 : Acute kidney injury likely secondary to vasomotor nephropathy, hyperkalemia, metabolic acidosis, hyperchloremia -Nephrology consulted, appreciate recommendations -Krishna replaced 11/05 -Strict intake and output -Renally dose medications -Avoid nephrotoxic medications -Daily weights -FWF -FeNa 0.05 indicating pre-renal -Medically treat hyperkalemia -Trend BMP ID: Septic shock -COVID-19 PCR negative -S/p antibiotic therapy with Rocephin and azithromycin () -Levophed gtt for hypotension -Follow-up culture data -Monitor WBC and temperature curve Endo: Hyperglycemia -Avoid hypoglycemia -Hbg A1C 6.7 -SSI and lantus q hs -Accu-Cheks q. 6 Heme: Acute DVT in the left posterior tibial vein and bilateral peroneal veins, Leukocytosis -D-dimer greater than 10,000 -CTA chest with no evidence of PE -Bilateral lower extremity ultrasound positive for DVT -Heparin gtt -Trend CBC -SCDs to BLE while in bed -Transfuse hemoglobin less than 7 -Monitor for signs of bleeding The high probability of a clinically significant, sudden or life threatening deterioration of the [multi] system(s) required my full and direct attention, intervention and personal management. The aggregate critical care time was [60] minutes. This time is in addition to time spent performing reported procedures but includes the following: [x] Data Review and interpretation [x] Patient assessment and monitoring of vital signs [x] Documentation [x] Medication orders and management Disposition Plan: icu Total Time Spent with Patient (Minutes): 60 History Interval history: This is a 66-year-old female with HTN and obesity who presented to the hospital on 10/29 via EMS with s/p cardiac arrest with CPR initiated by bystanders and upon EMS arrival a David airway was placed and ACLS was initiated. Patient had ROSC after 5-7 minutes and was started on epinephrine in route for hemodynamic support. Upon arrival to the emergency department patient GCS was noted to be 3 and she was biting the endotracheal tube with dilated pupils and copious vomitus and gastric secretions in the oropharynx/mouth/neck. David airway was removed and patient was intubated in the emergency department. Patient was admitted to the hospitalist service s/p cardiac arrest on sepsis and pneumonia protocol with consults to [facility]. Cardiology was consulted upon arrival to ICU. Hospital Course to Date: 10/30: Intubated and sedated, on fentanyl gtt. Open eyes spontaneously but does not follow any commands. On vasopressors, titrate as tolerated for MAP above 65. Patient febrile overnight, continue empiric IV Abx, culture data and COVID PCR pending. Patient is also s/p CT placement due to spontaneous pneumothorax. 2D echo is pending and Cardiology is consulted. 10/31: Patient remains intubated and following commands. Levophed drip stopped and potassium repleted. Patient started on tube feeding. Remains in soft bilateral restraints. 11/01: RN noted ST changes on BSM and 12 lead EKG obtained which showed ST. Given Ativan 1mg for agitation as she is maxed on fentanyl drip and IV push fentanyl did not seem to help. Patient was started on CPAP this morning by RT but remained on fentanyl drip and was having periods of apnea. Plan was to retry CPAP again in the p.m. with sedation off. 11/02: Rate increased r/t hypercapnea on ABG, sedation reduced. Given kionex for hyperkalemia and was started on levophed overnight for hypotension. 11/03: Overnight patient had tachycardia and was given Cardizem and Lopressor. Lopressor was repeated in the a.m. due to tachycardia. Patient will be started on amiodarone with a bolus per cardiology. Patient started on normal saline per liter per [facility] and steroids for angioedema. Noted to have bright red blood when suctioned from oh ETT. Remains on heparin drip as H/H is stable for now. Will reevaluate. Fentanyl drip was restarted last night due to agitation. Dr. Flores updated family today 11/04: Patient was sedated on fentanyl however off sedation is able to follow commands, a.m. labs completed in the p.m. and show hyperkalemia with increased r enal function studies. Nephrology, neurology consulted by [facility]. Given Kayexalate, insulin and D50 for hyperkalemia. Patient remains on amiodarone. 11/05: Patient needed to be sedated on fentanyl again to today. overnight krishna was replaced. Hyperkalemia->given kionex 60 for 5.6. Repeat K 6-> Dr. Grant informed and requested bumex, kionex, insulin, d50, calcium gluconate and sodium bicarb with repeat BMP in 2 hours which were placed. HR remains elevated. Hospitalist Physical - Constitutional Vitals: Temp Pulse Resp BP Pulse Ox 97.3 F L 147 H 22 144/96 95 11/05/21 08:00 11/05/21 12:15 11/05/21 12:00 11/05/21 12:15 11/05/21 12:15 General appearance: Present: no acute distress, obese, other (Intubated and Sedated) - EENT Eyes: Present: PERRL, EOM intact ENT: dentition normal - Neck Neck: Present: normal ROM - Respiratory Respiratory effort: normal Respiratory: bilateral: diminished - Cardiovascular Rhythm: regular Heart Sounds: Present: S1 & S2. Absent: systolic murmur, diastolic murmur - Extremities Extremities: no ischemia, pulses intact, pulses symmetrical, normal temperature, normal color Peripheral Pulses: within normal limits - Abdominal General gastrointestinal: soft, non-tender, non-distended, normal bowel sounds - Integumentary Integumentary: Present: warm, dry - Psychiatric Psychiatric: cooperative, agitated - Neurologic Neurologic: other (follows commands) - Allied Health Allied health notes reviewed: nursing, RT HEART Score - HEART Score Troponin: Troponin T 1.150 ng/mL (0.00-0.029) H* D 10/29/21 22:34 Results - Labs CBC & Chem 7: 11/05/21 04:20 11/05/21 Unknown Labs: Laboratory Last Values WBC 17.9 K/mm3 (4.5-11.0) H 11/05/21 04:20 RBC 3.64 M/mm3 (3.65-5.03) L 11/05/21 04:20 Hgb 9.7 gm/dl (10.1-14.3) L 11/05/21 04:20 Hct 31.1 % (30.3-42.9) 11/05/21 04:20 MCV 85 fl (79-97) 11/05/21 04:20 MCH 27 pg (28-32) L 11/05/21 04:20 MCHC 31 % (30-34) 11/05/21 04:20 RDW 16.4 % (13.2-15.2) H 11/05/21 04:20 Plt Count 224 K/mm3 (140-440) 11/05/21 04:20 Lymph % (Auto) 6.2 % (13.4-35.0) L 10/30/21 04:30 [place] % (Auto) 5.5 % (0.0-7.3) 10/30/21 04:30 Eos % (Auto) 0.1 % (0.0-4.3) 10/30/21 04:30 Baso % (Auto) 0.1 % (0.0-1.8) 10/30/21 04:30 Lymph # (Auto) 1.0 K/mm3 (1.2-5.4) L 10/30/21 04:30 [place] # (Auto) 0.9 K/mm3 (0.0-0.8) H 10/30/21 04:30 Eos # (Auto) 0.0 K/mm3 (0.0-0.4) 10/30/21 04:30 Baso # (Auto) 0.0 K/mm3 (0.0-0.1) 10/30/21 04:30 Add Manual Diff Complete 10/29/21 15:10 Total Counted 100 10/29/21 15:10 Seg Neutrophils % 88.1 % (40.0-70.0) H 10/30/21 04:30 Seg Neuts % (Manual) 78.0 % (40.0-70.0) H 10/29/21 15:10 Band Neutrophils % 5.0 % 10/29/21 15:10 Lymphocytes % (Manual) 10.0 % (13.4-35.0) L 10/29/21 15:10 Reactive Lymphs % (Man) 0 % 10/29/21 15:10 Monocytes % (Manual) 5.0 % (0.0-7.3) 10/29/21 15:10 Eosinophils % (Manual) 0 % (0.0-4.3) 10/29/21 15:10 Basophils % (Manual) 0 % (0.0-1.8) 10/29/21 15:10 Metamyelocytes % 2.0 % 10/29/21 15:10 Myelocytes % 0 % 10/29/21 15:10 Promyelocytes % 0 % 10/29/21 15:10 Blast Cells % 0 % 10/29/21 15:10 Nucleated RBC % Not Reportable 10/29/21 15:10 Seg Neutrophils # 14.2 K/mm3 (1.8-7.7) H 10/30/21 04:30 Seg Neutrophils # Man 21.7 K/mm3 (1.8-7.7) H 10/29/21 15:10 Band Neutrophils # 1.4 K/mm3 10/29/21 15:10 Lymphocytes # (Manual) 2.8 K/mm3 (1.2-5.4) 10/29/21 15:10 Abs React Lymphs (Man) 0.0 K/mm3 10/29/21 15:10 Monocytes # (Manual) 1.4 K/mm3 (0.0-0.8) H 10/29/21 15:10 Eosinophils # (Manual) 0.0 K/mm3 (0.0-0.4) 10/29/21 15:10 Basophils # (Manual) 0.0 K/mm3 (0.0-0.1) 10/29/21 15:10 Metamyelocytes # 0.6 K/mm3 10/29/21 15:10 Myelocytes # 0.0 K/mm3 10/29/21 15:10 Promyelocytes # 0.0 K/mm3 10/29/21 15:10 Blast Cells # 0.0 K/mm3 10/29/21 15:10 WBC Morphology Not Reportable 10/29/21 15:10 Hypersegmented Neuts Not Reportable 10/29/21 15:10 Hyposegmented Neuts Not Reportable 10/29/21 15:10 Hypogranular Neuts Not Reportable 10/29/21 15:10 Smudge Cells Not Reportable 10/29/21 15:10 Toxic Granulation Not Reportable 10/29/21 15:10 Toxic Vacuolation Not Reportable 10/29/21 15:10 Dohle Bodies Not Reportable 10/29/21 15:10 Pelger-Huet Anomaly Not Reportable 10/29/21 15:10 Manny Rods Not Reportable 10/29/21 15:10 Platelet Estimate Consistent w auto 10/29/21 15:10 Clumped Platelets Not Reportable 10/29/21 15:10 Plt Clumps, EDTA Not Reportable 10/29/21 15:10 Large Platelets Not Reportable 10/29/21 15:10 Giant Platelets Not Reportable 10/29/21 15:10 Platelet Satelliting Not Reportable 10/29/21 15:10 Plt Morphology Comment Not Reportable 10/29/21 15:10 RBC Morphology Not Reportable 10/29/21 15:10 Dimorphic RBCs Not Reportable 10/29/21 15:10 Polychromasia Not Reportable 10/29/21 15:10 Hypochromasia Not Reportable 10/29/21 15:10 Poikilocytosis 1+ 10/29/21 15:10 Anisocytosis Not Reportable 10/29/21 15:10 Microcytosis 1+ 10/29/21 15:10 Macrocytosis Not Reportable 10/29/21 15:10 Spherocytes Not Reportable 10/29/21 15:10 Pappenheimer Bodies Not Reportable 10/29/21 15:10 Sickle Cells Not Reportable 10/29/21 15:10 Target Cells Not Reportable 10/29/21 15:10 Tear Drop Cells Not Reportable 10/29/21 15:10 Ovalocytes Few 10/29/21 15:10 Helmet Cells Not Reportable 10/29/21 15:10 Maradiaga-Candelaria Arenas Bodies Not Reportable 10/29/21 15:10 [place] Rings Not Reportable 10/29/21 15:10 [place] Cells Not Reportable 10/29/21 15:10 Bite Cells Not Reportable 10/29/21 15:10 Crenated Cell Not Reportable 10/29/21 15:10 Elliptocytes Few 10/29/21 15:10 Acanthocytes (Spur) Not Reportable 10/29/21 15:10 Rouleaux Not Reportable 10/29/21 15:10 Hemoglobin C Crystals Not Reportable 10/29/21 15:10 Schistocytes Not Reportable 10/29/21 15:10 Malaria parasites Not Reportable 10/29/21 15:10 Magdy Bodies Not Reportable 10/29/21 15:10 Hem Pathologist Commnt No 10/29/21 15:10 PT 17.2 Sec. (12.2-14.9) H 10/30/21 16:30 INR 1.27 (0.87-1.13) H 10/30/21 16:30 APTT 44.4 Sec. (24.2-36.6) H 10/30/21 16:30 D-Dimer > 69422 ng/mlDDU (0-234) H 10/30/21 Unknown Heparin Anti-Xa Level 0.70 U.I./ml (0.3-0.7) 11/05/21 04:20 ABG pH 7.248 pH Units (7.350-7.450) L 11/05/21 10:05 ABG pCO2 61.4 mm Hg 11/05/21 10:05 ABG pO2 73.7 mm Hg (80.0-90.0) L 11/05/21 10:05 ABG HCO3 26.2 mmol/L (20.0-26.0) H 11/05/21 10:05 ABG O2 Saturation 93.1 % (95.0-99.0) L 11/05/21 10:05 ABG O2 Content 11.5 (0.0-44) 11/05/21 10:05 ABG Base Excess -1.5 mmol/L (-2.0-3.0) 11/05/21 10:05 ABG Hemoglobin 8.9 gm/dl (12.0-16.0) L 11/05/21 10:05 ABG Carboxyhemoglobin 1.3 % (0.0-5.0) 11/05/21 10:05 ABG Methemoglobin 0.4 % (0.0-1.5) 11/05/21 10:05 Oxyhemoglobin 91.4 % (95.0-99.0) L 11/05/21 10:05 FiO2 35 % 11/05/21 10:05 Sodium 142 mmol/L (137-145) 11/05/21 Unknown Potassium 6.0 mmol/L (3.6-5.0) H 11/05/21 Unknown Chloride 108.1 mmol/L (98-107) H 11/05/21 Unknown Carbon Dioxide 21 mmol/L (22-30) L 11/05/21 Unknown Anion Gap 19 mmol/L 11/05/21 Unknown BUN 80 mg/dL (7-17) H 11/05/21 Unknown Creatinine 2.0 mg/dL (0.6-1.2) H 11/05/21 Unknown Estimated GFR 30 ml/min 11/05/21 Unknown BUN/Creatinine Ratio 40 % 11/05/21 Unknown Glucose 238 mg/dL (65-100) H 11/05/21 Unknown POC Glucose 225 mg/dL (70-105) H 11/05/21 12:10 Hemoglobin A1c 6.7 % (4-6) H 10/31/21 04:30 Lactic Acid 0.70 mmol/L (0.7-2.0) 10/31/21 15:45 Calcium 8.9 mg/dL (8.4-10.2) 11/05/21 Unknown Phosphorus 3.80 mg/dL (2.5-4.5) 11/04/21 09:40 Magnesium 3.00 mg/dL (1.7-2.3) H 11/04/21 09:40 Ferritin 208.4 ng/mL (10.0-200.0) H 10/30/21 Unknown Total Bilirubin 0.30 mg/dL (0.1-1.2) 11/01/21 06:00 AST 79 units/L (5-40) H 11/01/21 06:00 ALT 259 units/L (7-56) H 11/01/21 06:00 Alkaline Phosphatase 113 units/L (35-129) 11/01/21 06:00 Ammonia 31.0 umol/L (25-60) 10/29/21 15:10 Lactate Dehydrogenase 469 units/L (91-180) H 10/30/21 Unknown Troponin T 1.150 ng/mL (0.00-0.029) H* D 10/29/21 22:34 C-Reactive Protein 13.40 mg/dL (0.00-1.30) H 10/30/21 Unknown Total Protein 5.5 g/dL (6.3-8.2) L 11/01/21 06:00 Albumin 2.7 g/dL (3.9-5) L 11/01/21 06:00 Albumin/Globulin Ratio 1.0 % 11/01/21 06:00 Triglycerides 68 mg/dL (2-149) 10/29/21 19:40 Cholesterol 98 mg/dL (50-199) 10/29/21 19:40 LDL Cholesterol Direct 43 mg/dL (50-130) L 10/29/21 19:40 HDL Cholesterol 50 mg/dL (40-59) 10/29/21 19:40 Cholesterol/HDL Ratio 1.96 % 10/29/21 19:40 Procalcitonin 61.95 ng/mL (<0.15) 10/30/21 Unknown TSH 3.080 mlU/mL (0.270-4.200) 10/29/21 15:10 Urine Color Straw (Yellow) 10/29/21 18:15 Urine Turbidity Clear (Clear) 10/29/21 18:15 Urine pH 7.0 (5.0-7.0) 10/29/21 18:15 Ur Specific [place] 1.018 (1.003-1.030) 10/29/21 18:15 Urine Protein 100 mg/dl mg/dL (Negative) 10/29/21 18:15 Urine Glucose (UA) 150 mg/dL (Negative) 10/29/21 18:15 Urine Ketones Neg mg/dL (Negative) 10/29/21 18:15 Urine Blood Mod (Negative) 10/29/21 18:15 Urine Nitrite Neg (Negative) 10/29/21 18:15 Urine Bilirubin Neg (Negative) 10/29/21 18:15 Urine Urobilinogen < 2.0 mg/dL (<2.0) 10/29/21 18:15 Ur Leukocyte Esterase Neg (Negative) 10/29/21 18:15 Urine WBC (Auto) 5.0 /HPF (0.0-6.0) 10/29/21 18:15 Urine RBC (Auto) 2.0 /HPF (0.0-6.0) 10/29/21 18:15 U Epithel Cells (Auto) < 1.0 /HPF (0-13.0) 10/29/21 18:15 Urine Mucus Few /HPF 10/29/21 18:15 Urine Eosinophils None seen (None Seen) 11/04/21 Unknown Urine Creatinine 190.9 mg/dL (0.1-20.0) H 11/04/21 Unknown Protein/Creatinin Ratio 0.90 11/04/21 Unknown Urine Sodium 10 mmol/L 11/04/21 Unknown Urine Total Protein 172 mg/dL (5-11.8) H 11/04/21 Unknown Salicylates < 0.3 mg/dL (2.8-20.0) L 10/29/21 15:10 Urine Opiates Screen Negative 10/29/21 18:15 Urine Methadone Screen Negative 10/29/21 18:15 Acetaminophen 5.0 ug/mL (10.0-30.0) L 10/29/21 15:10 Ur Barbiturates Screen Negative 10/29/21 18:15 Ur Phencyclidine Scrn Negative 10/29/21 18:15 Ur Amphetamines Screen Negative 10/29/21 18:15 U Benzodiazepines Scrn Negative 10/29/21 18:15 Urine Cocaine Screen Negative 10/29/21 18:15 U Marijuana (THC) Screen Negative 10/29/21 18:15 Drugs of Abuse Note Disclamer 10/29/21 18:15 Plasma/Serum Alcohol < 0.01 % (0-0.07) 10/29/21 15:10 Coronavirus (PCR) Negative (Negative) 10/30/21 Unknown Blood Type O POSITIVE 10/29/21 15:10 Antibody Screen Negative 10/29/21 15:10 Krishna/IV: Voiding Method Indwelling Catheter Active Medications - Current Medications Current Medications: Generic Name Dose Route Start Last Admin Trade Name Irvingq PRN Reason Stop Dose Admin Acetaminophen 650 mg 10/29/21 17:04 11/03/21 11:35 Acetaminophen 325 Mg Tab PO 650 mg Q6H PRN Administration Pain, Mild (1-3) Acetaminophen 650 mg 10/29/21 17:04 Acetaminophen 650 Mg Rect Supp FL Q6H PRN Pain MILD(1-3)/Fever >100.5/NIEVES Lipase/Protease/Amylase 1 each 10/31/21 08:56 Lipase 10,500/Protease 25,000/Amylase 43,750 (Units) Dr Cap FEEDTUBE PRN PRN For Clogged Feeding Tube Dextrose 0 ml 11/04/21 13:48 Dextrose 10% *Hypoglycemia IV PRN PRN Hypoglycemia Diphenhydramine HCl 25 mg 11/03/21 15:00 11/05/21 03:23 Diphenhydramine 50 Mg/Ml Vial IV 11/06/21 03:01 25 mg Q12H RAMON Administration Famotidine 10 mg 11/05/21 22:00 Famotidine 20 Mg/2 Ml Inj IV BID RAMON Fentanyl 50 mcg 11/04/21 14:32 11/05/21 08:29 Fentanyl 100 Mcg/2 Ml Inj IV 50 mcg Q2H PRN Administration Pain, Moderate (4-6) Heparin Sodium (Porcine) 4,300 unit 10/30/21 17:00 Heparin 10,000 Units/10 Ml Vial 40 unit/kg (4300 unit) IV Q6H PRN Anti-Xa Assay < 0.1 units/ml Hydrophilic Ointment 1 applic 10/29/21 14:29 Lip Therapy Vaseline TP Q2HR PRN Dry Lips Fentanyl Citrate 2,000 mcg in 100 mls @ 5.67 mls/hr 10/29/21 15:00 11/05/21 12:46 Fentanyl Drip Premix IV 4 mcg/kg/hr TITR RAMON 22.68 mls/hr Administration Protocol 1 MCG/KG/HR NORepinephrine/NS 8 MG-250 ML 8 mg in 250 mls @ 3.75 mls/hr 10/29/21 15:00 11/04/21 07:00 Norepinephrine/Ns 8 Mg-250 Ml (Double Conc) IV 0 mcg/min TITRATE RAMON 0 mls/hr Titration Protocol 2 MCG/MIN Heparin Sodium/Sodium Chloride 25,000 unit in 500 mls @ 30 mls/hr 10/30/21 17:00 11/05/21 08:29 Heparin/ 0.45% Nacl-25,000 Unit/500 Ml IV 1,700 units/hr TITR RAMON 34 mls/hr Administration Protocol 1,500 UNITS/HR Amiodarone HCl 900 mg/ 500 mls @ 33.333 mls/hr 11/03/21 11:00 11/05/21 08:29 Dextrose IV 0.5 mg/min DIRECT RAMON 16.667 mls/hr Administration Protocol 1 MG/MIN Insulin Glargine 10 units 11/05/21 22:00 Insulin Glargine 100 Units/Ml SUB-Q QHS RAMON Insulin Human Lispro 0 unit 10/30/21 16:00 11/05/21 12:47 Insulin Lispro 100 Unit/Ml SUB-Q 4 unit Q6HR RAMON Administration Protocol Methylprednisolone Sodium Succinate 40 mg 11/03/21 15:00 11/05/21 05:41 Methylprednisolone Sod Succinate 40 Mg/1 Ml Inj IV 11/06/21 06:01 40 mg Q8HR RAMON Administration Multi-Ingred Cream/Lotion/Oil/Oint 1 applic 10/29/21 14:29 Mineral Oil/Petrolatum, White Ophth Oint 3.5 Gm OU Q4HR PRN Dry Eye(s) Quetiapine Fumarate 50 mg 11/02/21 22:00 11/05/21 09:02 Quetiapine 25 Mg Tab PO 50 mg BID RAMON Administration Senna/Docusate Sodium 1 tab 10/29/21 15:00 11/05/21 09:02 Sennosides/Docusate Sodium 8.6/50 Mg Tab FEEDTUBE 1 tab BID RAMON Administration Simple Syrup 15 ml 10/31/21 08:56 Simple Syrup 15 Ml FEEDTUBE PRN PRN Hypoglycemia Simple Syrup 30 ml 10/31/21 08:56 Simple Syrup 15 Ml FEEDTUBE PRN PRN Hypoglycemia Sodium Bicarbonate 325 mg 10/31/21 08:56 Sodium Bicarbonate 325 Mg Tab FEEDTUBE PRN PRN For Clogged Feeding Tube Sodium Chloride 10 ml 10/29/21 22:00 11/05/21 09:02 Sodium Chloride 0.9% 10 Ml Flush Syringe IV 10 ml BID RAMON Administration Sodium Chloride 10 ml 10/29/21 17:04 Sodium Chloride 0.9% 10 Ml Flush Syringe IV PRN PRN LINE FLUSH Nutrition/Malnutrition Assess - Dietary Evaluation Nutrition/Malnutrition Findings: Nutrition Notes Start: 10/30/21 09:50 Freq: Status: Active Protocol: Document 11/03/21 12:36 MEENU (Rec: 11/03/21 12:50 MEENU [id number]) Nutrition Notes Initial or Follow up Brief Note Current Diet TF-Vital HP @ 60 ml/hr (since L 10/31). Height 5 ft 10 in Weight 106.7 kg [place] Body Weight (kg) 68.18 BMI 33.7 Weight change and time frame No body weight change reported in 4 days. Weight Status Obese Subjective/Other Information RD consult for routine F/U on TF tolerance. TF continues as prescribed and well tolerated, according to RN notes. Percent of energy/protein needs met: Prescribed Vital HP @ 60 ml/hr provides for energy/protein needs (1,440 Kcal/126 g) during LOS, 90% Kcal; 93% AA. #1 Nutrition Diagnosis Inadequate oral intake Diagnosis Progress(for reassessment Continues documentation) Is patient on ventilator? Yes Is Patient Ambulatory and/or Out of Bed No REE-([facility]-confined to bed) 2022.848 Kcal/Kg value to use for calculation 15 Approximate Energy Requirements Using 1601 kcal/Kg Calculation Used for Recommendations Kcal/kg Additional Notes Protein: 2 g/Kg IBW; 136 g/day . Fluids: 1 ml/Kcal, or as per MD. Nutrition Intervention Nutrition Support: Continue Vital HP @ 60 ml/hr. Flush: 50 ml water Q 4 hr, or as per MD. Kcal 1,440 Protein (gm) 126 Carbohydrates (gm) 161 Fat (gm) 33 Fluid (mL) 1,204 Fiber (gm) 0 % RDI: 90% Kcal; 93% AA. Goal #1 Provide at least 75% of energy /protein needs through Enteral Feeding during LOS. Goal #2 Maintain body weight within +/ -3% of admission body weight during LOS. Follow-Up By: 11/10/21 Additional Comments Continue monitoring TF tolerance and BM.
--- NOTE | 2021-11-05 15:22 | Progress Note ---
Assessment and Plan Continue current management. - Patient Problems (1) Cardiopulmonary arrest Current Visit: Yes Status: Acute (2) Acute hypoxemic respiratory failure Current Visit: Yes Status: Acute (3) Atrial fibrillation and flutter Current Visit: Yes Status: Acute (4) Septic shock Current Visit: Yes Status: Acute (5) Aspiration pneumonia Current Visit: Yes Status: Acute (6) Cardiomyopathy Current Visit: Yes Status: Acute (7) Acute kidney injury Current Visit: Yes Status: Acute (8) DVT (deep venous thrombosis) Current Visit: Yes Status: Acute Qualifiers: Affected thrombotic vein of extremity: peroneal (9) Acute metabolic encephalopathy Current Visit: Yes Status: Acute Subjective Date of service: 11/05/21 Principal diagnosis: C-P arrest, resp failure, septic shock, PNA, SIERRA, PAFlutter Interval history: Sedated, intubated. In Aflutter at 109 bpm. Objective Vital Signs Vital Signs - 8 hr Last Vital Signs Vital Signs - 8 hr 11/05/21 11/05/21 11/05/21 07:30 07:48 07:55 Temperature Pulse Rate 108 H 138 H 109 H Pulse Rate [ From Monitor] Respiratory 14 Rate Blood Pressure 135/63 135/63 O2 Sat by Pulse 97 98 Oximetry 11/05/21 11/05/21 11/05/21 07:58 08:00 08:30 Temperature 97.3 F L Pulse Rate 143 H 143 H Pulse Rate [ 109 H From Monitor] Respiratory 29 H 24 22 Rate Blood Pressure 172/104 158/102 O2 Sat by Pulse 96 97 96 Oximetry 11/05/21 11/05/21 11/05/21 09:00 09:30 10:00 Temperature Pulse Rate 126 H 117 H 109 H Pulse Rate [ From Monitor] Respiratory 14 14 14 Rate Blood Pressure 158/102 104/64 88/64 O2 Sat by Pulse 95 95 95 Oximetry 11/05/21 11/05/21 12:00 12:15 Temperature Pulse Rate 147 H 147 H Pulse Rate [ 146 H From Monitor] Respiratory 22 Rate Blood Pressure 144/96 O2 Sat by Pulse 94 95 Oximetry - Physical Examination General: Other (Intubated and sedated) HEENT: Positive: Normocephaly Neck: Positive: trachea midline Cardiac: Positive: Irregularly Regular, S1/S2 Lungs: Positive: clear to auscultation Neuro: Positive: Other (Unable to assess due to intubation sedated) Abdomen: Positive: Soft, Active Bowel Sounds Skin: Negative: Rash Musculoskeletal: No Fluid Collection Extremities: Present: edema - Labs and Meds CBC 11/05/21 Range/Units 04:20 WBC 17.9 H (4.5-11.0) K/mm3 RBC 3.64 L (3.65-5.03) M/mm3 Hgb 9.7 L (10.1-14.3) gm/dl Hct 31.1 (30.3-42.9) % Plt Count 224 (140-440) K/mm3 Comprehensive Metabolic Panel 11/05/21 11/05/21 Range/Units 04:20 Unknown Sodium 141 142 (137-145) mmol/L Potassium 5.6 H 6.0 H (3.6-5.0) mmol/L Chloride 108.4 H 108.1 H (98-107) mmol/L Carbon Dioxide 23 21 L (22-30) mmol/L BUN 71 H 80 H (7-17) mg/dL Creatinine 1.9 H 2.0 H (0.6-1.2) mg/dL Glucose 270 H 238 H (65-100) mg/dL Calcium 8.9 8.9 (8.4-10.2) mg/dL - Telemetry EKG Rhythm: Atrial Flutter - Allied health notes Allied health notes reviewed: nursing
[2021-11-05] MEDS: DEXTROSE 10% *Hypoglycemia IV PRN (15:29)
[2021-11-05] MEDS: MINERAL OIL/PETROLATUM, WHITE OPHTH OINT 3.5 GM OU PRN (15:30)
[2021-11-05 21:51] LABS: Calcium 8.8 mg/dL (8.4-10.2)
[2021-11-05] MEDS ORDERED: FAMOTIDINE 20 MG/2 ML INJ IV SCH (22:00)
[2021-11-05] MEDS: INSULIN GLARGINE 100 UNITS/ML SUB-Q SCH (22:28)
[2021-11-05] MEDS: QUEtiapine 100 MG TAB PO SCH (22:30)
[2021-11-05] MEDS ORDERED: ALBUTEROL 2.5 MG/3 ML NEBU IH ONE (23:37)
[2021-11-06] MEDS: CALC GLUCONATE 1GM/NS 100 ML 1 GM/100 ML BAG IV SCH ×2 (00:27→00:37)
[2021-11-06] MEDS ORDERED: DEXTROSE 10% *Hypoglycemia IV ONE (01:00)
[2021-11-06] MEDS: fentaNYL DRIP Premix 2,000 MCG/100 ML BAG IV SCH ×5 (03:11→23:22)
[2021-11-06 03:39] LABS: Alanine Aminotransferase 77 units/L (7-56); BUN/Creatinine Ratio 42; Blood Urea Nitrogen 84 mg/dL (7-17); Calcium 9.3 mg/dL (8.4-10.2); Hemolysis Index 2
[2021-11-06 05:57] LABS: ABG Base Excess 2.3 mmol/L (-2.0-3.0); ABG HCO3 29.7 mmol/L (20.0-26.0); ABG Methemoglobin 0.6 % (0.0-1.5); ABG Oxygen Saturation 94.1 % (95.0-99.0); ABG PCO2 60.2 mm Hg; ABG PH 7.311 pH Units (7.350-7.450); ABG PO2 72.8 mm Hg (80.0-90.0)
[2021-11-06] MEDS: INSULIN LISPRO 100 UNIT/ML SUB-Q SCH ×5 (07:04→23:32)
[2021-11-06] MEDS: methylPREDNISolone Sod Succinate 40 MG/1 ML INJ IV SCH (07:04)
[2021-11-06] MEDS: fentaNYL 100 MCG/2 ML INJ IV PRN (08:36)
[2021-11-06 09:04] LABS: Calcium 9.2 mg/dL (8.4-10.2)
[2021-11-06] MEDS: diphenhydrAMINE 50 MG/ML VIAL IV SCH (09:15)
[2021-11-06] MEDS: SENNOSIDES/DOCUSATE SODIUM 8.6/50 MG TAB FEEDTUBE SCH ×2 (09:24→23:24)
[2021-11-06] MEDS: QUEtiapine 25 MG TAB PO SCH (09:24)
[2021-11-06] MEDS: FAMOTIDINE 10 MG TAB PO SCH ×2 (09:25→23:24)
[2021-11-06] MEDS: MINERAL OIL/PETROLATUM, WHITE OPHTH OINT 3.5 GM OU PRN (09:25)
--- NOTE | 2021-11-06 09:52 | XRay Report ---
CHEST 1 VIEW 11/06/2021 9:08 AM INDICATION / CLINICAL INFORMATION: Follow up. COMPARISON: 11/05/2021 FINDINGS: SUPPORT DEVICES: Lines and tubes again project in expected position HEART / MEDIASTINUM: Stable cardiomegaly LUNGS / PLEURA: Small right basilar pneumothorax and mild streaky bilateral parenchymal disease, unch anged ADDITIONAL FINDINGS: No significant additional findings. IMPRESSION: 1. No significant change Signer Name: Kali Lofton MD Signed: 11/06/2021 9:47 AM Workstation Name: [id number]
[2021-11-06] MEDS ORDERED: dilTIAZem/D5W 100 MG/100 ML BAG IV SCH (10:00)
[2021-11-06] MEDS ORDERED: BUMETANIDE 1 MG/4 ML INJ IV ONE (10:00)
[2021-11-06] MEDS ORDERED: AMIODARONE 150 MG in DEXTROSE 5% IN WATER 97 ML IV ONE (10:00)
[2021-11-06] MEDS ORDERED: dilTIAZem 25 MG/5 ML INJ IV ONE (10:00)
[2021-11-06] MEDS ORDERED: SODIUM POLYSTYRENE 15 GM/60 ML ORAL LIQD PO ONE (10:00)
[2021-11-06] MEDS ORDERED: METOPROLOL TARTRATE 50 MG TAB FEEDTUBE SCH (10:00)
--- NOTE | 2021-11-06 10:09 | Electrocardiograph Report ---
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
--- NOTE | 2021-11-06 11:51 | Progress Note ---
Assessment and Plan Assessment: Acute Renal Failure secondary to Ischemic ATN secondary to Sepsis, Cardiac arrest and Hypotension S/P Cardiac Arrest Acute Hypoxemic Respiratory Failure Acute DVT Sepsis CHF Anemia Hyperkalemia Plan: Renal labs reviewed. Serum creatinine slightly up, monitor. ARF likely secondary to Ischemic ATN No IVF as LVEF 25-30 % Renal US shows CKD signs, no hydronephrosis Ordered urine lytes, protein and eosinophils Hyperkalemia-K improving with medical management. DVT-on Heparin drip Intubated on Vent, Per ICU Strict I/O's daily Renally dose medications Avoid nephratoxic agents No acute indication for [employer]ER Will monitor renal function closely Critical Care time: 36 minutes Subjective Date of service: 11/06/21 Principal diagnosis: AHRF; Cardiac arrest; R. pneumothorax; pneumonia; AMS; DVT's; SIERRA; Obesity Interval history: Intubated on Vent. In ICU. Making urine. Objective - Exam Narrative Exam: - General Appearance General appearance: sedated on ventilator, intubated EENT: ATNC, other (Blinks eyes) Respiratory: Decreased Breath Sounds, Other (Intubated) Heart: S1S2 Gastrointestinal: Present: normoactive bowel sounds, other (NG tube) Integumentary: no rash, warm and dry Neurologic: other (Intubated, blinks eyes) Musculoskeletal: Present: other (mild edema to BLE) - Vital Signs Vital signs: Vital Signs - 12hr 11/06/21 11/06/21 11/06/21 00:00 00:10 00:30 Temperature 98.4 F Pulse Rate 145 H 150 H Pulse Rate [ 145 H Anterior Bilateral Throughout] Pulse Rate [ 152 H From Monitor] Respiratory 14 13 Rate Blood Pressure 103/64 101/67 O2 Sat by Pulse 96 98 Oximetry 11/06/21 11/06/21 11/06/21 01:00 01:30 02:00 Temperature Pulse Rate 151 H 151 H 146 H Pulse Rate [ Anterior Bilateral Throughout] Pulse Rate [ From Monitor] Respiratory 14 14 16 Rate Blood Pressure 104/74 110/73 110/73 O2 Sat by Pulse 99 99 100 Oximetry 11/06/21 11/06/21 11/06/21 02:30 03:00 03:24 Temperature 99 F Pulse Rate 147 H 151 H Pulse Rate [ Anterior Bilateral Throughout] Pulse Rate [ From Monitor] Respiratory 15 14 Rate Blood Pressure 153/93 153/93 O2 Sat by Pulse 100 97 Oximetry 11/06/21 11/06/21 11/06/21 03:30 04:00 04:30 Temperature Pulse Rate 148 H 147 H 147 H Pulse Rate [ Anterior Bilateral Throughout] Pulse Rate [ 148 H From Monitor] Respiratory 14 14 14 Rate Blood Pressure 144/87 123/76 104/60 O2 Sat by Pulse 95 94 95 Oximetry 11/06/21 11/06/21 11/06/21 04:54 05:00 05:30 Temperature Pulse Rate 147 H 147 H 148 H Pulse Rate [ Anterior Bilateral Throughout] Pulse Rate [ From Monitor] Respiratory 14 14 Rate Blood Pressure 104/60 93/70 113/71 O2 Sat by Pulse 95 95 95 Oximetry 11/06/21 11/06/21 11/06/21 06:00 06:30 07:00 Temperature Pulse Rate 150 H 152 H 152 H Pulse Rate [ Anterior Bilateral Throughout] Pulse Rate [ From Monitor] Respiratory 13 13 17 Rate Blood Pressure 122/80 124/83 133/88 O2 Sat by Pulse 94 94 93 Oximetry 11/06/21 11/06/21 11/06/21 07:30 08:00 08:30 Temperature 99 F Pulse Rate 155 H 156 H 158 H Pulse Rate [ Anterior Bilateral Throughout] Pulse Rate [ 159 H From Monitor] Respiratory 20 16 13 Rate Blood Pressure 133/88 168/105 163/100 O2 Sat by Pulse 95 93 93 Oximetry 11/06/21 11/06/21 11/06/21 09:00 09:30 09:40 Temperature Pulse Rate 156 H 154 H 150 H Pulse Rate [ Anterior Bilateral Throughout] Pulse Rate [ From Monitor] Respiratory 21 15 Rate Blood Pressure 163/100 156/86 O2 Sat by Pulse 94 95 Oximetry 11/06/21 11/06/21 11/06/21 09:47 10:01 10:20 Temperature Pulse Rate 150 H 152 H 153 H Pulse Rate [ Anterior Bilateral Throughout] Pulse Rate [ From Monitor] Respiratory 13 Rate Blood Pressure 162/96 166/103 166/103 O2 Sat by Pulse 94 Oximetry 11/06/21 11/06/21 11/06/21 10:30 11:01 11:18 Temperature 98.9 F Pulse Rate 153 H 76 75 Pulse Rate [ Anterior Bilateral Throughout] Pulse Rate [ From Monitor] Respiratory 17 14 Rate Blood Pressure 144/92 91/57 O2 Sat by Pulse 94 95 Oximetry 11/06/21 11:20 Temperature Pulse Rate Pulse Rate [ Anterior Bilateral Throughout] Pulse Rate [ 75 From Monitor] Respiratory 14 Rate Blood Pressure O2 Sat by Pulse 94 Oximetry - Lab 11/05/21 04:20 11/06/21 12:57 Most recent lab results ABG pH 7.311 pH Units (7.350-7.450) L 11/06/21 05:40 ABG pCO2 60.2 mm Hg 11/06/21 05:40 ABG pO2 72.8 mm Hg (80.0-90.0) L 11/06/21 05:40 ABG HCO3 29.7 mmol/L (20.0-26.0) H 11/06/21 05:40 ABG O2 Saturation 94.1 % (95.0-99.0) L 11/06/21 05:40 Calcium 9.2 mg/dL (8.4-10.2) 11/06/21 08:07 Phosphorus 3.60 mg/dL (2.5-4.5) 11/06/21 02:35 Magnesium 2.80 mg/dL (1.7-2.3) H 11/06/21 02:35 Urine Creatinine 190.9 mg/dL (0.1-20.0) H 11/04/21 Unknown Urine Sodium 10 mmol/L 11/04/21 Unknown Urine Total Protein 172 mg/dL (5-11.8) H 11/04/21 Unknown Medications & Allergies - Medications Allergies/Adverse Reactions: Allergies No Known Allergies Allergy (Verified 10/29/21 14:01) Active Medications: Generic Name Dose Route Start Last Admin Trade Name Irvingq PRN Reason Stop Dose Admin Acetaminophen 650 mg 10/29/21 17:04 11/03/21 11:35 Acetaminophen 325 Mg Tab PO 650 mg Q6H PRN Administration Pain, Mild (1-3) Acetaminophen 650 mg 10/29/21 17:04 Acetaminophen 650 Mg Rect Supp WI Q6H PRN Pain MILD(1-3)/Fever >100.5/NIEVES Lipase/Protease/Amylase 1 each 10/31/21 08:56 Lipase 10,500/Protease 25,000/Amylase 43,750 (Units) Dr Ivory FEEDTUBE PRN PRN For Clogged Feeding Tube Dextrose 0 ml 11/04/21 13:48 11/05/21 15:29 Dextrose 10% *Hypoglycemia IV 250 ml PRN PRN Administration Hypoglycemia Famotidine 10 mg 11/06/21 10:00 11/06/21 09:25 Famotidine 10 Mg Tab PO 10 mg BID RAMON Administration Fentanyl 50 mcg 11/04/21 14:32 11/06/21 08:36 Fentanyl 100 Mcg/2 Ml Inj IV 50 mcg Q2H PRN Administration Pain, Moderate (4-6) Heparin Sodium (Porcine) 4,300 unit 10/30/21 17:00 Heparin 10,000 Units/10 Ml Vial 40 unit/kg (4300 unit) IV Q6H PRN Anti-Xa Assay < 0.1 units/ml Hydrophilic Ointment 1 applic 10/29/21 14:29 Lip Therapy Vaseline TP Q2HR PRN Dry Lips Fentanyl Citrate 2,000 mcg in 100 mls @ 5.67 mls/hr 10/29/21 15:00 11/06/21 08:10 Fentanyl Drip Premix IV 4 mcg/kg/hr TITR RAMON 22.68 mls/hr Administration Protocol 1 MCG/KG/HR NORepinephrine/NS 8 MG-250 ML 8 mg in 250 mls @ 3.75 mls/hr 10/29/21 15:00 11/04/21 07:00 Norepinephrine/Ns 8 Mg-250 Ml (Double Conc) IV 0 mcg/min TITRATE RAMON 0 mls/hr Titration Protocol 2 MCG/MIN Heparin Sodium/Sodium Chloride 25,000 unit in 500 mls @ 30 mls/hr 10/30/21 17:00 11/06/21 09:04 Heparin/ 0.45% Nacl-25,000 Unit/500 Ml IV 0 units/hr TITR RAMON 0 mls/hr Titration Protocol 1,500 UNITS/HR Amiodarone HCl 900 mg/ 500 mls @ 33.333 mls/hr 11/03/21 11:00 11/05/21 08:29 Dextrose IV 0.5 mg/min DIRECT RAMON 16.667 mls/hr Administration Protocol 1 MG/MIN Diltiazem HCl 100 mg in 100 mls @ 5 mls/hr 11/06/21 10:00 11/06/21 10:52 Cardizem/D5w 100mg/100ml IV 0 mg/hr TITR RAMON 0 mls/hr Titration Protocol 5 MG/HR Insulin Glargine 10 units 11/05/21 22:00 11/05/21 22:28 Insulin Glargine 100 Units/Ml SUB-Q 10 units QHS RAMON Administration Insulin Human Lispro 0 unit 10/30/21 16:00 11/06/21 07:05 Insulin Lispro 100 Unit/Ml SUB-Q 4 unit Q6HR RAMON Administration Protocol Metoprolol Tartrate 50 mg 11/06/21 10:00 11/06/21 10:20 Metoprolol Tartrate 50 Mg Tab FEEDTUBE 50 mg Q6H RAMON Administration Multi-Ingred Cream/Lotion/Oil/Oint 1 applic 10/29/21 14:29 11/06/21 09:25 Mineral Oil/Petrolatum, White Ophth Oint 3.5 Gm OU 1 applic Q4HR PRN Administration Dry Eye(s) Quetiapine Fumarate 100 mg 11/05/21 22:00 11/05/21 22:30 Quetiapine 100 Mg Tab PO 100 mg QHS RAMON Administration Quetiapine Fumarate 75 mg 11/06/21 10:00 11/06/21 09:24 Quetiapine 25 Mg Tab PO 75 mg QAM RAMON Administration Senna/Docusate Sodium 1 tab 10/29/21 15:00 11/06/21 09:24 Sennosides/Docusate Sodium 8.6/50 Mg Tab FEEDTUBE 1 tab BID RAMON Administration Simple Syrup 15 ml 10/31/21 08:56 Simple Syrup 15 Ml FEEDTUBE PRN PRN Hypoglycemia Simple Syrup 30 ml 10/31/21 08:56 Simple Syrup 15 Ml FEEDTUBE PRN PRN Hypoglycemia Sodium Bicarbonate 325 mg 10/31/21 08:56 Sodium Bicarbonate 325 Mg Tab FEEDTUBE PRN PRN For Clogged Feeding Tube Sodium Chloride 10 ml 10/29/21 22:00 11/06/21 09:25 Sodium Chloride 0.9% 10 Ml Flush Syringe IV 10 ml BID RAMON Administration Sodium Chloride 10 ml 10/29/21 17:04 Sodium Chloride 0.9% 10 Ml Flush Syringe IV PRN PRN LINE FLUSH
--- NOTE | 2021-11-06 12:46 | Progress Note ---
Assessment and Plan Initiate metoprolol 50 mg Q6 hours. Will ultimately wean off diltiazem drip. - Patient Problems (1) Cardiopulmonary arrest Current Visit: Yes Status: Acute (2) Atrial flutter with rapid ventricular response Current Visit: Yes Status: Acute (3) Acute hypoxemic respiratory failure Current Visit: Yes Status: Acute (4) Septic shock Current Visit: Yes Status: Acute (5) Aspiration pneumonia Current Visit: Yes Status: Acute (6) Cardiomyopathy Current Visit: Yes Status: Acute (7) Acute kidney injury Current Visit: Yes Status: Acute (8) DVT (deep venous thrombosis) Current Visit: Yes Status: Acute Qualifiers: Affected thrombotic vein of extremity: peroneal (9) Acute metabolic encephalopathy Current Visit: Yes Status: Acute Subjective Date of service: 11/06/21 Principal diagnosis: AHRF; Cardiac arrest; R. pneumothorax; pneumonia; AMS; DVT's; SIERRA; Obesity Interval history: The patient went into rapid atrial flutter this morning. She receive a bolus of IV amiodarone. Intravenous diltiazem drip was started. Objective Vital Signs Temp Pulse Pulse Pulse Resp BP Pulse Ox 11/06/21 11:20 75 14 94 11/06/21 11:18 98.9 F 75 11/06/21 11:01 76 14 91/57 95 11/06/21 10:30 153 H 17 144/92 94 11/06/21 10:20 153 H 166/103 11/06/21 10:01 152 H 13 166/103 94 11/06/21 09:47 150 H 162/96 11/06/21 09:40 150 H 11/06/21 09:30 154 H 15 156/86 95 11/06/21 09:00 156 H 21 163/100 94 11/06/21 08:30 158 H 13 163/100 93 11/06/21 08:00 99 F 156 H 159 H 16 168/105 93 11/06/21 07:30 155 H 20 133/88 95 11/06/21 07:00 152 H 17 133/88 93 11/06/21 06:30 152 H 13 124/83 94 11/06/21 06:00 150 H 13 122/80 94 11/06/21 05:30 148 H 14 113/71 95 11/06/21 05:00 147 H 14 93/70 95 11/06/21 04:54 147 H 104/60 95 11/06/21 04:30 147 H 14 104/60 95 11/06/21 04:00 147 H 148 H 14 123/76 94 11/06/21 03:30 148 H 14 144/87 95 11/06/21 03:24 99 F 11/06/21 03:00 151 H 14 153/93 97 11/06/21 02:30 147 H 15 153/93 100 11/06/21 02:00 146 H 16 110/73 100 11/06/21 01:30 151 H 14 110/73 99 11/06/21 01:00 151 H 14 104/74 99 11/06/21 00:30 150 H 13 101/67 98 11/06/21 00:10 145 H 11/06/21 00:00 98.4 F 145 H 152 H 14 103/64 96 11/05/21 23:30 146 H 15 108/69 97 11/05/21 23:13 145 H 98/68 96 11/05/21 23:00 144 H 14 98/68 96 11/05/21 22:30 121 H 14 96/63 96 11/05/21 22:00 130 H 14 93/64 96 11/05/21 21:30 140 H 14 105/75 96 11/05/21 21:00 143 H 14 105/75 96 11/05/21 20:30 139 H 15 97/68 97 11/05/21 20:13 128 H 89/58 96 11/05/21 20:00 138 H 129 H 14 86/61 96 11/05/21 19:37 98.2 F 11/05/21 19:30 143 H 15 100/68 96 11/05/21 19:00 143 H 14 99/65 96 11/05/21 18:30 144 H 14 112/72 95 11/05/21 18:14 145 H 14 111/75 94 11/05/21 18:00 144 H 14 111/75 95 11/05/21 17:30 143 H 16 109/71 96 11/05/21 17:00 141 H 17 108/64 95 11/05/21 16:30 142 H 11 L 104/65 95 11/05/21 16:10 147 H 144/96 95 11/05/21 16:00 108 H 146 H 14 111/66 96 11/05/21 15:57 97.4 F L 11/05/21 15:30 124 H 13 104/59 96 11/05/21 15:00 136 H 14 92/57 95 11/05/21 14:30 140 H 17 100/65 94 11/05/21 14:00 140 H 12 98/65 91 11/05/21 13:30 140 H 14 108/61 94 11/05/21 13:00 145 H 22 127/80 94 - Physical Examination General: Other (Intubated and sedated) HEENT: Positive: Normocephaly Neck: Positive: trachea midline Cardiac: Positive: Irregularly Regular, S1/S2 Lungs: Positive: clear to auscultation Neuro: Positive: Other (sedated) Abdomen: Positive: Soft, Active Bowel Sounds Skin: Negative: Rash Musculoskeletal: No Fluid Collection Extremities: Present: edema - Labs and Meds Cardiac Enzymes 11/06/21 Range/Units 02:35 AST 21 (5-40) units/L Comprehensive Metabolic Panel 11/05/21 11/05/21 11/05/21 Range/Units 17:40 21:25 Unknown Sodium 145 145 142 (137-145) mmol/L Potassium 5.2 H 5.3 H 6.0 H (3.6-5.0) mmol/L Chloride 107.8 H 109.2 H 108.1 H (98-107) mmol/L Carbon Dioxide 27 28 21 L (22-30) mmol/L BUN 79 H 81 H 80 H (7-17) mg/dL Creatinine 1.9 H 2.0 H 2.0 H (0.6-1.2) mg/dL Glucose 204 H 195 H 238 H (65-100) mg/dL Calcium 9.0 8.8 8.9 (8.4-10.2) mg/dL AST (5-40) units/L ALT (7-56) units/L Alkaline Phosphatase (35-129) units/L Total Protein (6.3-8.2) g/dL Albumin (3.9-5) g/dL 11/06/21 11/06/21 Range/Units 02:35 08:07 Sodium 146 H 145 (137-145) mmol/L Potassium 4.8 5.2 H (3.6-5.0) mmol/L Chloride 107.1 H 105.2 (98-107) mmol/L Carbon Dioxide 27 28 (22-30) mmol/L BUN 84 H 85 H (7-17) mg/dL Creatinine 2.0 H 2.3 H (0.6-1.2) mg/dL Glucose 235 H 236 H (65-100) mg/dL Calcium 9.3 9.2 (8.4-10.2) mg/dL AST 21 (5-40) units/L ALT 77 H (7-56) units/L Alkaline Phosphatase 84 (35-129) units/L Total Protein 6.3 (6.3-8.2) g/dL Albumin 3.0 L (3.9-5) g/dL - Telemetry EKG Rhythm: Atrial Flutter (with RVR) - Allied health notes Allied health notes reviewed: nursing
--- NOTE | 2021-11-06 13:22 | Progress Note ---
Assessment and Plan Acute hypoxemic respiratory failure on MVS Cardiac arrest with ROSC Acute DVT Right pneumothorax Shock (septic +/- cardiogenic) Possible aspiration pneumonia SIERRA Altered mental status/acute encephalopathy Elevated serum transaminases, likely shock liver Metabolic acidosis Obesity Leukocytosis Hypokalemia Lactic acidosis (Had extended discussion with family on 11/04/12 with case-manager [employer] [place]; explained her disease processes at length and answered their questions at length; I explained her CMOP, SIERRA and her AMS as bothersome issues. I explained the VTE possibly contributing to the initial cardiac arrest. I explained her baseline KOLBY/OHS is also a contributory factor. Overall i explained the next 3-4 days should give us a clearer picture of her progress after nephrology and neurology input is received) - Kayexalate given and will repeat BMP - await ABG - continue Amiodarone and Cardizem drips and adjust per cardiology team - nephrology input appreciated (non-oliguric) - tongue swelling better - continue care as below otherwise; - vasopressors for target MAP > 65 mmHg - continue full anticoagulation with IV Heparin re: DVT - continue Daily SAT and SBT assessment as tolerated - continue to wean supplemental oxygen for target O2 sat's > 90% acutely - VAP bundle addressed - continue lung protective strategies - continue bronchodilators with pulmonary hygiene per RT - wean per pulmonary driven protocols otherwise - continue accuchecks with glycemic control per SSI (While critically ill target blood glucose of 140-180 mg/dL; avoid hypoglycemia) - sedation prn for target RASS 0 to -1 - avoid nephrotoxins, renally dose all medications - continue to avoid benzodiazepine's, reduce the possibility of delirium - AB's per ID rec's - prn analgesia per CPOT score - Maintenance of sleep-wake cycle, avoid delirium - continue enteral nutritional support at goal rate as tolerated - G.I. & VTE prophylaxis - PT/OT/ROM exercises - continue mobility protocols for pressure ulcer prophylaxis - Monitor hemodynamics closely - continue other care per attending / other consultants - discharge planning ongoing concurrently COVID SPECIFIC INTERVENTIONS - COVID-19 PCR negative .... Re-evaluate in am & prn CONDITION: CRITICAL PROGNOSIS: GUARDED CODE STATUS: FULL CODE The high probability of a clinically significant, sudden or life-threatening deterioration of the [respiratory, cardiovascular, renal & neurologic] system(s) required my full and direct attention, intervention and personal management. The aggregate critical care time was [32] minutes without overlap. Time includes spent on; [x] Data Review and interpretation [x] Patient assessment and monitoring of vital signs [x] Documentation [x] Medication orders and management Subjective Date of service: 11/06/21 Principal diagnosis: AHRF; Cardiac arrest; R. pneumothorax; pneumonia; AMS; DVT's; SIERRA; Obesity Interval history: Patient is seen today for: Acute hypoxemic respiratory failure; Cardiac arrest with ROSC; Right pneumothorax; pneumonia; AMS; bilateral DVT's; SIERRA; Obesity Seen and examined at bedside; 24hour events reviewed; nursing and respiratory care staff consulted; no adverse overnight events reported to me; remains on MVS; back with A-fib RVR and on Amiodarone + Cardizem drips; no emesis or overt aspiration; secretions moderate; making urine; hyperkalemia improved with medical management but K+ at 5.2 Objective Vital Signs - 12hr 11/06/21 11/06/21 11/06/21 01:30 02:00 02:30 Temperature Pulse Rate 151 H 146 H 147 H Pulse Rate [ From Monitor] Respiratory 14 16 15 Rate Blood Pressure 110/73 110/73 153/93 O2 Sat by Pulse 99 100 100 Oximetry 11/06/21 11/06/21 11/06/21 03:00 03:24 03:30 Temperature 99 F Pulse Rate 151 H 148 H Pulse Rate [ From Monitor] Respiratory 14 14 Rate Blood Pressure 153/93 144/87 O2 Sat by Pulse 97 95 Oximetry 11/06/21 11/06/21 11/06/21 04:00 04:30 04:54 Temperature Pulse Rate 147 H 147 H 147 H Pulse Rate [ 148 H From Monitor] Respiratory 14 14 Rate Blood Pressure 123/76 104/60 104/60 O2 Sat by Pulse 94 95 95 Oximetry 11/06/21 11/06/21 11/06/21 05:00 05:30 06:00 Temperature Pulse Rate 147 H 148 H 150 H Pulse Rate [ From Monitor] Respiratory 14 14 13 Rate Blood Pressure 93/70 113/71 122/80 O2 Sat by Pulse 95 95 94 Oximetry 11/06/21 11/06/21 11/06/21 06:30 07:00 07:30 Temperature Pulse Rate 152 H 152 H 155 H Pulse Rate [ From Monitor] Respiratory 13 17 20 Rate Blood Pressure 124/83 133/88 133/88 O2 Sat by Pulse 94 93 95 Oximetry 11/06/21 11/06/21 11/06/21 08:00 08:30 09:00 Temperature 99 F Pulse Rate 156 H 158 H 156 H Pulse Rate [ 159 H From Monitor] Respiratory 16 13 21 Rate Blood Pressure 168/105 163/100 163/100 O2 Sat by Pulse 93 93 94 Oximetry 11/06/21 11/06/21 11/06/21 09:30 09:40 09:47 Temperature Pulse Rate 154 H 150 H 150 H Pulse Rate [ From Monitor] Respiratory 15 Rate Blood Pressure 156/86 162/96 O2 Sat by Pulse 95 Oximetry 11/06/21 11/06/21 11/06/21 10:01 10:20 10:30 Temperature Pulse Rate 152 H 153 H 153 H Pulse Rate [ From Monitor] Respiratory 13 17 Rate Blood Pressure 166/103 166/103 144/92 O2 Sat by Pulse 94 94 Oximetry 11/06/21 11/06/21 11/06/21 11:01 11:18 11:20 Temperature 98.9 F Pulse Rate 76 75 Pulse Rate [ 75 From Monitor] Respiratory 14 14 Rate Blood Pressure 91/57 O2 Sat by Pulse 95 94 Oximetry Constitutional: appears uncomfortable, other (elderly obese female with mildly increased respiratory effort at rest) Eyes: non-icteric, other (+ mild periorbital phymosis) ENT: oropharynx moist, oropharyngeal exudate pre (moderate), other (ETT 23 cm KRYSTAL) Neck: supple, no lymphadenopathy, no JVD Effort: mildly labored Ascultation: Bilateral: diminished breath sounds, rhonchi Percussion: Bilateral: not dull Cardiovascular: irregular rhythm, other (no R/M) Gastrointestinal: normoactive bowel sounds, soft, non-tender, non-distended (protuberant) Integumentary: normal Extremities: no cyanosis, pulses normal, no ischemia or petechiae, edema Neurologic: non-focal exam (grossly), pupils equal and round, motor strength normal and (weak), unable to assess Psychiatric: other (unable to assess re: AMS) CBC and BMP: 11/05/21 04:20 11/06/21 08:07 ABG, PT/INR, D-dimer: ABG ABG pH 7.311 pH Units (7.350-7.450) L 11/06/21 05:40 ABG pCO2 60.2 mm Hg 11/06/21 05:40 ABG pO2 72.8 mm Hg (80.0-90.0) L 11/06/21 05:40 ABG O2 Saturation 94.1 % (95.0-99.0) L 11/06/21 05:40 PT/INR, D-dimer PT 17.2 Sec. (12.2-14.9) H 10/30/21 16:30 INR 1.27 (0.87-1.13) H 10/30/21 16:30 D-Dimer > 32433 ng/mlDDU (0-234) H 10/30/21 Unknown Abnormal lab findings: Abnormal Labs 10/29/21 10/29/21 10/29/21 15:10 15:10 15:10 WBC 27.8 H RBC Hgb Hct MCH 27 L RDW Plt Count Lymph % (Auto) Lymph # (Auto) [place] # (Auto) Seg Neutrophils % Seg Neuts % (Manual) 78.0 H Lymphocytes % (Manual) 10.0 L Seg Neutrophils # Seg Neutrophils # Man 21.7 H Monocytes # (Manual) 1.4 H PT INR APTT D-Dimer Heparin Anti-Xa Level ABG pH ABG pO2 ABG HCO3 ABG O2 Saturation ABG Base Excess ABG Hemoglobin Oxyhemoglobin Sodium Potassium Chloride Carbon Dioxide BUN Creatinine Glucose POC Glucose Hemoglobin A1c Lactic Acid 6.80 H* Calcium Magnesium Ferritin AST ALT Alkaline Phosphatase Lactate Dehydrogenase Troponin T 0.089 H C-Reactive Protein Total Protein Albumin LDL Cholesterol Direct Urine Creatinine Urine Total Protein Salicylates Acetaminophen 10/29/21 10/29/21 10/29/21 15:10 15:10 15:10 WBC RBC Hgb Hct MCH RDW Plt Count Lymph % (Auto) Lymph # (Auto) [place] # (Auto) Seg Neutrophils % Seg Neuts % (Manual) Lymphocytes % (Manual) Seg Neutrophils # Seg Neutrophils # Man Monocytes # (Manual) PT INR APTT D-Dimer Heparin Anti-Xa Level ABG pH ABG pO2 ABG HCO3 ABG O2 Saturation ABG Base Excess ABG Hemoglobin Oxyhemoglobin Sodium 136 L Potassium 2.8 L* Chloride 93.4 L Carbon Dioxide 20 L BUN Creatinine Glucose 330 H POC Glucose Hemoglobin A1c Lactic Acid Calcium Magnesium Ferritin AST 1013 H ALT 1289 H Alkaline Phosphatase 246 H Lactate Dehydrogenase Troponin T C-Reactive Protein Total Protein Albumin LDL Cholesterol Direct Urine Creatinine Urine Total Protein Salicylates < 0.3 L Acetaminophen 5.0 L 10/29/21 10/29/21 10/29/21 15:11 16:01 19:29 WBC RBC Hgb Hct MCH RDW Plt Count Lymph % (Auto) Lymph # (Auto) [place] # (Auto) Seg Neutrophils % Seg Neuts % (Manual) Lymphocytes % (Manual) Seg Neutrophils # Seg Neutrophils # Man Monocytes # (Manual) PT INR APTT D-Dimer Heparin Anti-Xa Level ABG pH 7.307 L ABG pO2 64.1 L ABG HCO3 ABG O2 Saturation 90.8 L ABG Base Excess -2.9 L ABG Hemoglobin Oxyhemoglobin 89.3 L Sodium Potassium Chloride Carbon Dioxide BUN Creatinine Glucose POC Glucose Hemoglobin A1c Lactic Acid 2.60 H* Calcium Magnesium 2.90 H Ferritin AST ALT Alkaline Phosphatase Lactate Dehydrogenase Troponin T C-Reactive Protein Total Protein Albumin LDL Cholesterol Direct Urine Creatinine Urine Total Protein Salicylates Acetaminophen 10/29/21 10/29/21 10/30/21 19:40 22:34 04:30 WBC 16.2 H RBC Hgb Hct MCH 26 L RDW 15.5 H Plt Count Lymph % (Auto) 6.2 L Lymph # (Auto) 1.0 L [place] # (Auto) 0.9 H Seg Neutrophils % 88.1 H Seg Neuts % (Manual) Lymphocytes % (Manual) Seg Neutrophils # 14.2 H Seg Neutrophils # Man Monocytes # (Manual) PT INR APTT D-Dimer Heparin Anti-Xa Level ABG pH ABG pO2 ABG HCO3 ABG O2 Saturation ABG Base Excess ABG Hemoglobin Oxyhemoglobin Sodium Potassium Chloride Carbon Dioxide BUN Creatinine Glucose POC Glucose Hemoglobin A1c Lactic Acid Calcium Magnesium Ferritin AST ALT Alkaline Phosphatase Lactate Dehydrogenase Troponin T 1.950 H* D 1.150 H* D C-Reactive Protein Total Protein Albumin LDL Cholesterol Direct 43 L Urine Creatinine Urine Total Protein Salicylates Acetaminophen 10/30/21 10/30/21 10/30/21 04:30 04:35 05:45 WBC RBC Hgb Hct MCH RDW Plt Count Lymph % (Auto) Lymph # (Auto) [place] # (Auto) Seg Neutrophils % Seg Neuts % (Manual) Lymphocytes % (Manual) Seg Neutrophils # Seg Neutrophils # Man Monocytes # (Manual) PT INR APTT D-Dimer Heparin Anti-Xa Level ABG pH ABG pO2 69.5 L ABG HCO3 ABG O2 Saturation ABG Base Excess -2.7 L ABG Hemoglobin Oxyhemoglobin 94.7 L Sodium Potassium Chloride Carbon Dioxide 21 L BUN Creatinine Glucose 159 H POC Glucose 151 H Hemoglobin A1c Lactic Acid Calcium 7.9 L D Magnesium Ferritin AST 461 H ALT 686 H Alkaline Phosphatase 130 H Lactate Dehydrogenase Troponin T C-Reactive Protein Total Protein 5.6 L D Albumin 3.2 L LDL Cholesterol Direct Urine Creatinine Urine Total Protein Salicylates Acetaminophen 10/30/21 10/30/21 10/30/21 11:24 15:59 16:30 WBC RBC Hgb Hct MCH RDW Plt Count Lymph % (Auto) Lymph # (Auto) [place] # (Auto) Seg Neutrophils % Seg Neuts % (Manual) Lymphocytes % (Manual) Seg Neutrophils # Seg Neutrophils # Man Monocytes # (Manual) PT 17.2 H INR 1.27 H APTT 44.4 H D-Dimer Heparin Anti-Xa Level ABG pH ABG pO2 ABG HCO3 ABG O2 Saturation ABG Base Excess ABG Hemoglobin Oxyhemoglobin Sodium Potassium Chloride Carbon Dioxide BUN Creatinine Glucose POC Glucose 153 H 109 H Hemoglobin A1c Lactic Acid Calcium Magnesium Ferritin AST ALT Alkaline Phosphatase Lactate Dehydrogenase Troponin T C-Reactive Protein Total Protein Albumin LDL Cholesterol Direct Urine Creatinine Urine Total Protein Salicylates Acetaminophen 10/30/21 10/30/21 10/30/21 23:00 Unknown Unknown WBC RBC Hgb Hct MCH RDW Plt Count Lymph % (Auto) Lymph # (Auto) [place] # (Auto) Seg Neutrophils % Seg Neuts % (Manual) Lymphocytes % (Manual) Seg Neutrophils # Seg Neutrophils # Man Monocytes # (Manual) PT INR APTT D-Dimer > 89907 H Heparin Anti-Xa Level 0.82 H ABG pH ABG pO2 ABG HCO3 ABG O2 Saturation ABG Base Excess ABG Hemoglobin Oxyhemoglobin Sodium Potassium Chloride Carbon Dioxide BUN Creatinine Glucose POC Glucose Hemoglobin A1c Lactic Acid Calcium Magnesium Ferritin 208.4 H AST ALT Alkaline Phosphatase Lactate Dehydrogenase Troponin T C-Reactive Protein Total Protein Albumin LDL Cholesterol Direct Urine Creatinine Urine Total Protein Salicylates Acetaminophen 10/30/21 10/31/21 10/31/21 Unknown 04:30 04:30 WBC 14.4 H RBC Hgb Hct MCH 26 L RDW Plt Count Lymph % (Auto) Lymph # (Auto) [place] # (Auto) Seg Neutrophils % Seg Neuts % (Manual) Lymphocytes % (Manual) Seg Neutrophils # Seg Neutrophils # Man Monocytes # (Manual) PT INR APTT D-Dimer Heparin Anti-Xa Level ABG pH ABG pO2 ABG HCO3 ABG O2 Saturation ABG Base Excess ABG Hemoglobin Oxyhemoglobin Sodium Potassium 3.5 L Chloride 107.5 H Carbon Dioxide 20 L BUN 28 H Creatinine 1.7 H Glucose 113 H POC Glucose Hemoglobin A1c Lactic Acid Calcium 7.9 L Magnesium Ferritin AST ALT Alkaline Phosphatase Lactate Dehydrogenase 469 H Troponin T C-Reactive Protein 13.40 H Total Protein Albumin LDL Cholesterol Direct Urine Creatinine Urine Total Protein Salicylates Acetaminophen 10/31/21 10/31/21 10/31/21 04:30 05:11 15:30 WBC RBC Hgb Hct MCH RDW Plt Count Lymph % (Auto) Lymph # (Auto) [place] # (Auto) Seg Neutrophils % Seg Neuts % (Manual) Lymphocytes % (Manual) Seg Neutrophils # Seg Neutrophils # Man Monocytes # (Manual) PT INR APTT D-Dimer Heparin Anti-Xa Level ABG pH 7.222 L ABG pO2 61.5 L ABG HCO3 ABG O2 Saturation 86.2 L ABG Base Excess -6.3 L ABG Hemoglobin 11.2 L Oxyhemoglobin 84.5 L Sodium Potassium Chloride Carbon Dioxide BUN Creatinine Glucose POC Glucose 106 H Hemoglobin A1c 6.7 H Lactic Acid Calcium Magnesium Ferritin AST ALT Alkaline Phosphatase Lactate Dehydrogenase Troponin T C-Reactive Protein Total Protein Albumin LDL Cholesterol Direct Urine Creatinine Urine Total Protein Salicylates Acetaminophen 10/31/21 10/31/21 10/31/21 16:07 16:35 17:45 WBC RBC Hgb Hct MCH RDW Plt Count Lymph % (Auto) Lymph # (Auto) [place] # (Auto) Seg Neutrophils % Seg Neuts % (Manual) Lymphocytes % (Manual) Seg Neutrophils # Seg Neutrophils # Man Monocytes # (Manual) PT INR APTT D-Dimer Heparin Anti-Xa Level ABG pH 7.267 L ABG pO2 58.3 L ABG HCO3 ABG O2 Saturation 88.3 L ABG Base Excess -5.9 L ABG Hemoglobin 10.1 L Oxyhemoglobin 86.5 L Sodium Potassium Chloride Carbon Dioxide BUN Creatinine Glucose POC Glucose 115 H Hemoglobin A1c Lactic Acid Calcium Magnesium Ferritin AST ALT Alkaline Phosphatase Lactate Dehydrogenase Troponin T C-Reactive Protein Total Protein Albumin LDL Cholesterol Direct Urine Creatinine 383.6 H Urine Total Protein Salicylates Acetaminophen 11/01/21 11/01/21 11/01/21 00:06 05:08 06:00 WBC 12.6 H RBC 3.43 L Hgb 8.9 L Hct 28.7 L MCH 26 L RDW 15.7 H Plt Count 130 L Lymph % (Auto) Lymph # (Auto) [place] # (Auto) Seg Neutrophils % Seg Neuts % (Manual) Lymphocytes % (Manual) Seg Neutrophils # Seg Neutrophils # Man Monocytes # (Manual) PT INR APTT D-Dimer Heparin Anti-Xa Level ABG pH ABG pO2 ABG HCO3 ABG O2 Saturation ABG Base Excess ABG Hemoglobin Oxyhemoglobin Sodium Potassium Chloride Carbon Dioxide BUN Creatinine Glucose POC Glucose 114 H 120 H Hemoglobin A1c Lactic Acid Calcium Magnesium Ferritin AST ALT Alkaline Phosphatase Lactate Dehydrogenase Troponin T C-Reactive Protein Total Protein Albumin LDL Cholesterol Direct Urine Creatinine Urine Total Protein Salicylates Acetaminophen 11/01/21 11/01/21 11/01/21 06:00 11:43 14:00 WBC RBC Hgb Hct MCH RDW Plt Count Lymph % (Auto) Lymph # (Auto) [place] # (Auto) Seg Neutrophils % Seg Neuts % (Manual) Lymphocytes % (Manual) Seg Neutrophils # Seg Neutrophils # Man Monocytes # (Manual) PT INR APTT D-Dimer Heparin Anti-Xa Level ABG pH 7.349 L ABG pO2 75.6 L ABG HCO3 ABG O2 Saturation ABG Base Excess -3.9 L ABG Hemoglobin 9.8 L Oxyhemoglobin 93.5 L Sodium Potassium Chloride 114.1 H Carbon Dioxide 20 L BUN 33 H Creatinine Glucose 131 H POC Glucose 151 H Hemoglobin A1c Lactic Acid Calcium 7.7 L Magnesium Ferritin AST 79 H ALT 259 H Alkaline Phosphatase Lactate Dehydrogenase Troponin T C-Reactive Protein Total Protein 5.5 L Albumin 2.7 L LDL Cholesterol Direct Urine Creatinine Urine Total Protein Salicylates Acetaminophen 11/01/21 11/01/21 11/02/21 16:45 22:55 05:12 WBC RBC Hgb Hct MCH RDW Plt Count Lymph % (Auto) Lymph # (Auto) [place] # (Auto) Seg Neutrophils % Seg Neuts % (Manual) Lymphocytes % (Manual) Seg Neutrophils # Seg Neutrophils # Man Monocytes # (Manual) PT INR APTT D-Dimer Heparin Anti-Xa Level ABG pH ABG pO2 ABG HCO3 ABG O2 Saturation ABG Base Excess ABG Hemoglobin Oxyhemoglobin Sodium Potassium Chloride Carbon Dioxide BUN Creatinine Glucose POC Glucose 119 H 129 H 140 H Hemoglobin A1c Lactic Acid Calcium Magnesium Ferritin AST ALT Alkaline Phosphatase Lactate Dehydrogenase Troponin T C-Reactive Protein Total Protein Albumin LDL Cholesterol Direct Urine Creatinine Urine Total Protein Salicylates Acetaminophen 11/02/21 11/02/21 11/02/21 05:35 05:35 09:35 WBC 13.5 H RBC 3.60 L Hgb 9.7 L Hct MCH 27 L RDW 15.7 H Plt Count Lymph % (Auto) Lymph # (Auto) [place] # (Auto) Seg Neutrophils % Seg Neuts % (Manual) Lymphocytes % (Manual) Seg Neutrophils # Seg Neutrophils # Man Monocytes # (Manual) PT INR APTT D-Dimer Heparin Anti-Xa Level ABG pH 7.208 L ABG pO2 75.9 L ABG HCO3 ABG O2 Saturation 93.6 L ABG Base Excess -4.3 L ABG Hemoglobin 9.1 L Oxyhemoglobin 91.6 L Sodium Potassium 5.2 H D Chloride 112.6 H Carbon Dioxide BUN 32 H Creatinine Glucose 152 H POC Glucose Hemoglobin A1c Lactic Acid Calcium 8.2 L Magnesium 2.70 H Ferritin AST ALT Alkaline Phosphatase Lactate Dehydrogenase Troponin T C-Reactive Protein Total Protein Albumin LDL Cholesterol Direct Urine Creatinine Urine Total Protein Salicylates Acetaminophen 11/02/21 11/02/21 11/02/21 11:44 17:13 23:43 WBC RBC Hgb Hct MCH RDW Plt Count Lymph % (Auto) Lymph # (Auto) [place] # (Auto) Seg Neutrophils % Seg Neuts % (Manual) Lymphocytes % (Manual) Seg Neutrophils # Seg Neutrophils # Man Monocytes # (Manual) PT INR APTT D-Dimer Heparin Anti-Xa Level ABG pH ABG pO2 ABG HCO3 ABG O2 Saturation ABG Base Excess ABG Hemoglobin Oxyhemoglobin Sodium Potassium Chloride Carbon Dioxide BUN Creatinine Glucose POC Glucose 173 H 148 H 137 H Hemoglobin A1c Lactic Acid Calcium Magnesium Ferritin AST ALT Alkaline Phosphatase Lactate Dehydrogenase Troponin T C-Reactive Protein Total Protein Albumin LDL Cholesterol Direct Urine Creatinine Urine Total Protein Salicylates Acetaminophen 11/03/21 11/03/21 11/03/21 04:59 06:00 06:00 WBC RBC 3.43 L Hgb 9.1 L Hct 29.0 L MCH 26 L RDW 16.4 H Plt Count Lymph % (Auto) Lymph # (Auto) [place] # (Auto) Seg Neutrophils % Seg Neuts % (Manual) Lymphocytes % (Manual) Seg Neutrophils # Seg Neutrophils # Man Monocytes # (Manual) PT INR APTT D-Dimer Heparin Anti-Xa Level 0.17 L ABG pH ABG pO2 ABG HCO3 ABG O2 Saturation ABG Base Excess ABG Hemoglobin Oxyhemoglobin Sodium Potassium Chloride Carbon Dioxide BUN Creatinine Glucose POC Glucose 167 H Hemoglobin A1c Lactic Acid Calcium Magnesium Ferritin AST ALT Alkaline Phosphatase Lactate Dehydrogenase Troponin T C-Reactive Protein Total Protein Albumin LDL Cholesterol Direct Urine Creatinine Urine Total Protein Salicylates Acetaminophen 11/03/21 11/03/21 11/03/21 06:00 09:20 11:58 WBC RBC Hgb Hct MCH RDW Plt Count Lymph % (Auto) Lymph # (Auto) [place] # (Auto) Seg Neutrophils % Seg Neuts % (Manual) Lymphocytes % (Manual) Seg Neutrophils # Seg Neutrophils # Man Monocytes # (Manual) PT INR APTT D-Dimer Heparin Anti-Xa Level ABG pH 7.274 L ABG pO2 75.6 L ABG HCO3 ABG O2 Saturation 94.9 L ABG Base Excess -2.5 L ABG Hemoglobin 9.3 L Oxyhemoglobin 92.9 L Sodium 149 H Potassium Chloride 117.5 H Carbon Dioxide BUN 32 H Creatinine Glucose 173 H POC Glucose 192 H Hemoglobin A1c Lactic Acid Calcium 8.1 L Magnesium Ferritin AST ALT Alkaline Phosphatase Lactate Dehydrogenase Troponin T C-Reactive Protein Total Protein Albumin LDL Cholesterol Direct Urine Creatinine Urine Total Protein Salicylates Acetaminophen 11/03/21 11/03/21 11/04/21 18:22 Unknown 00:09 WBC RBC Hgb Hct MCH RDW Plt Count Lymph % (Auto) Lymph # (Auto) [place] # (Auto) Seg Neutrophils % Seg Neuts % (Manual) Lymphocytes % (Manual) Seg Neutrophils # Seg Neutrophils # Man Monocytes # (Manual) PT INR APTT D-Dimer Heparin Anti-Xa Level 0.29 L ABG pH ABG pO2 ABG HCO3 ABG O2 Saturation ABG Base Excess ABG Hemoglobin Oxyhemoglobin Sodium Potassium Chloride Carbon Dioxide BUN Creatinine Glucose POC Glucose 178 H 221 H Hemoglobin A1c Lactic Acid Calcium Magnesium Ferritin AST ALT Alkaline Phosphatase Lactate Dehydrogenase Troponin T C-Reactive Protein Total Protein Albumin LDL Cholesterol Direct Urine Creatinine Urine Total Protein Salicylates Acetaminophen 11/04/21 11/04/21 11/04/21 05:09 09:40 09:40 WBC 16.8 H RBC Hgb Hct MCH 27 L RDW 16.5 H Plt Count Lymph % (Auto) Lymph # (Auto) [place] # (Auto) Seg Neutrophils % Seg Neuts % (Manual) Lymphocytes % (Manual) Seg Neutrophils # Seg Neutrophils # Man Monocytes # (Manual) PT INR APTT D-Dimer Heparin Anti-Xa Level ABG pH ABG pO2 ABG HCO3 ABG O2 Saturation ABG Base Excess ABG Hemoglobin Oxyhemoglobin Sodium Potassium 5.9 H Chloride 108.5 H Carbon Dioxide BUN 54 H Creatinine 1.8 H Glucose 198 H POC Glucose 182 H Hemoglobin A1c Lactic Acid Calcium Magnesium 3.00 H Ferritin AST ALT Alkaline Phosphatase Lactate Dehydrogenase Troponin T C-Reactive Protein Total Protein Albumin LDL Cholesterol Direct Urine Creatinine Urine Total Protein Salicylates Acetaminophen 11/04/21 11/04/21 11/04/21 12:13 13:34 14:05 WBC RBC Hgb Hct MCH RDW Plt Count Lymph % (Auto) Lymph # (Auto) [place] # (Auto) Seg Neutrophils % Seg Neuts % (Manual) Lymphocytes % (Manual) Seg Neutrophils # Seg Neutrophils # Man Monocytes # (Manual) PT INR APTT D-Dimer Heparin Anti-Xa Level ABG pH 7.223 L ABG pO2 71.3 L ABG HCO3 ABG O2 Saturation 92.8 L ABG Base Excess ABG Hemoglobin 8.2 L Oxyhemoglobin 91.0 L Sodium Potassium Chloride Carbon Dioxide BUN Creatinine Glucose POC Glucose 184 H Hemoglobin A1c Lactic Acid Calcium Magnesium Ferritin AST ALT Alkaline Phosphatase Lactate Dehydrogenase Troponin T C-Reactive Protein Total Protein Albumin LDL Cholesterol Direct Urine Creatinine 184.6 H Urine Total Protein Salicylates Acetaminophen 11/04/21 11/04/21 11/05/21 18:02 Unknown 00:07 WBC RBC Hgb Hct MCH RDW Plt Count Lymph % (Auto) Lymph # (Auto) [place] # (Auto) Seg Neutrophils % Seg Neuts % (Manual) Lymphocytes % (Manual) Seg Neutrophils # Seg Neutrophils # Man Monocytes # (Manual) PT INR APTT D-Dimer Heparin Anti-Xa Level ABG pH ABG pO2 ABG HCO3 ABG O2 Saturation ABG Base Excess ABG Hemoglobin Oxyhemoglobin Sodium Potassium Chloride Carbon Dioxide BUN Creatinine Glucose POC Glucose 262 H 259 H Hemoglobin A1c Lactic Acid Calcium Magnesium Ferritin AST ALT Alkaline Phosphatase Lactate Dehydrogenase Troponin T C-Reactive Protein Total Protein Albumin LDL Cholesterol Direct Urine Creatinine 190.9 H Urine Total Protein 172 H Salicylates Acetaminophen 11/05/21 11/05/21 11/05/21 04:20 04:20 05:30 WBC 17.9 H RBC 3.64 L Hgb 9.7 L Hct MCH 27 L RDW 16.4 H Plt Count Lymph % (Auto) Lymph # (Auto) [place] # (Auto) Seg Neutrophils % Seg Neuts % (Manual) Lymphocytes % (Manual) Seg Neutrophils # Seg Neutrophils # Man Monocytes # (Manual) PT INR APTT D-Dimer Heparin Anti-Xa Level ABG pH ABG pO2 ABG HCO3 ABG O2 Saturation ABG Base Excess ABG Hemoglobin Oxyhemoglobin Sodium Potassium 5.6 H Chloride 108.4 H Carbon Dioxide BUN 71 H Creatinine 1.9 H Glucose 270 H POC Glucose 283 H Hemoglobin A1c Lactic Acid Calcium Magnesium Ferritin AST ALT Alkaline Phosphatase Lactate Dehydrogenase Troponin T C-Reactive Protein Total Protein Albumin LDL Cholesterol Direct Urine Creatinine Urine Total Protein Salicylates Acetaminophen 11/05/21 11/05/21 11/05/21 10:05 12:10 15:29 WBC RBC Hgb Hct MCH RDW Plt Count Lymph % (Auto) Lymph # (Auto) [place] # (Auto) Seg Neutrophils % Seg Neuts % (Manual) Lymphocytes % (Manual) Seg Neutrophils # Seg Neutrophils # Man Monocytes # (Manual) PT INR APTT D-Dimer Heparin Anti-Xa Level ABG pH 7.248 L ABG pO2 73.7 L ABG HCO3 26.2 H ABG O2 Saturation 93.1 L ABG Base Excess ABG Hemoglobin 8.9 L Oxyhemoglobin 91.4 L Sodium Potassium Chloride Carbon Dioxide BUN Creatinine Glucose POC Glucose 225 H 199 H Hemoglobin A1c Lactic Acid Calcium Magnesium Ferritin AST ALT Alkaline Phosphatase Lactate Dehydrogenase Troponin T C-Reactive Protein Total Protein Albumin LDL Cholesterol Direct Urine Creatinine Urine Total Protein Salicylates Acetaminophen 11/05/21 11/05/21 11/05/21 15:51 17:32 17:40 WBC RBC Hgb Hct MCH RDW Plt Count Lymph % (Auto) Lymph # (Auto) [place] # (Auto) Seg Neutrophils % Seg Neuts % (Manual) Lymphocytes % (Manual) Seg Neutrophils # Seg Neutrophils # Man Monocytes # (Manual) PT INR APTT D-Dimer Heparin Anti-Xa Level ABG pH ABG pO2 ABG HCO3 ABG O2 Saturation ABG Base Excess ABG Hemoglobin Oxyhemoglobin Sodium Potassium 5.2 H Chloride 107.8 H Carbon Dioxide BUN 79 H Creatinine 1.9 H Glucose 204 H POC Glucose 278 H 197 H Hemoglobin A1c Lactic Acid Calcium Magnesium Ferritin AST ALT Alkaline Phosphatase Lactate Dehydrogenase Troponin T C-Reactive Protein Total Protein Albumin LDL Cholesterol Direct Urine Creatinine Urine Total Protein Salicylates Acetaminophen 11/05/21 11/05/21 11/05/21 21:25 22:22 23:43 WBC RBC Hgb Hct MCH RDW Plt Count Lymph % (Auto) Lymph # (Auto) [place] # (Auto) Seg Neutrophils % Seg Neuts % (Manual) Lymphocytes % (Manual) Seg Neutrophils # Seg Neutrophils # Man Monocytes # (Manual) PT INR APTT D-Dimer Heparin Anti-Xa Level ABG pH ABG pO2 ABG HCO3 ABG O2 Saturation ABG Base Excess ABG Hemoglobin Oxyhemoglobin Sodium Potassium 5.3 H Chloride 109.2 H Carbon Dioxide BUN 81 H Creatinine 2.0 H Glucose 195 H POC Glucose 180 H 203 H Hemoglobin A1c Lactic Acid Calcium Magnesium Ferritin AST ALT Alkaline Phosphatase Lactate Dehydrogenase Troponin T C-Reactive Protein Total Protein Albumin LDL Cholesterol Direct Urine Creatinine Urine Total Protein Salicylates Acetaminophen 11/05/21 11/06/21 11/06/21 Unknown 02:35 05:09 WBC RBC Hgb Hct MCH RDW Plt Count Lymph % (Auto) Lymph # (Auto) [place] # (Auto) Seg Neutrophils % Seg Neuts % (Manual) Lymphocytes % (Manual) Seg Neutrophils # Seg Neutrophils # Man Monocytes # (Manual) PT INR APTT D-Dimer Heparin Anti-Xa Level ABG pH ABG pO2 ABG HCO3 ABG O2 Saturation ABG Base Excess ABG Hemoglobin Oxyhemoglobin Sodium 146 H Potassium 6.0 H Chloride 108.1 H 107.1 H Carbon Dioxide 21 L BUN 80 H 84 H Creatinine 2.0 H 2.0 H Glucose 238 H 235 H POC Glucose 215 H Hemoglobin A1c Lactic Acid Calcium Magnesium 2.80 H Ferritin AST ALT 77 H Alkaline Phosphatase Lactate Dehydrogenase Troponin T C-Reactive Protein Total Protein Albumin 3.0 L LDL Cholesterol Direct Urine Creatinine Urine Total Protein Salicylates Acetaminophen 11/06/21 11/06/21 11/06/21 05:40 08:07 08:07 WBC RBC Hgb Hct MCH RDW Plt Count Lymph % (Auto) Lymph # (Auto) [place] # (Auto) Seg Neutrophils % Seg Neuts % (Manual) Lymphocytes % (Manual) Seg Neutrophils # Seg Neutrophils # Man Monocytes # (Manual) PT INR APTT D-Dimer Heparin Anti-Xa Level 1.24 H ABG pH 7.311 L ABG pO2 72.8 L ABG HCO3 29.7 H ABG O2 Saturation 94.1 L ABG Base Excess ABG Hemoglobin 11.4 L Oxyhemoglobin 92.3 L Sodium Potassium 5.2 H Chloride Carbon Dioxide BUN 85 H Creatinine 2.3 H Glucose 236 H POC Glucose Hemoglobin A1c Lactic Acid Calcium Magnesium Ferritin AST ALT Alkaline Phosphatase Lactate Dehydrogenase Troponin T C-Reactive Protein Total Protein Albumin LDL Cholesterol Direct Urine Creatinine Urine Total Protein Salicylates Acetaminophen 11/06/21 12:14 WBC RBC Hgb Hct MCH RDW Plt Count Lymph % (Auto) Lymph # (Auto) [place] # (Auto) Seg Neutrophils % Seg Neuts % (Manual) Lymphocytes % (Manual) Seg Neutrophils # Seg Neutrophils # Man Monocytes # (Manual) PT INR APTT D-Dimer Heparin Anti-Xa Level ABG pH ABG pO2 ABG HCO3 ABG O2 Saturation ABG Base Excess ABG Hemoglobin Oxyhemoglobin Sodium Potassium Chloride Carbon Dioxide BUN Creatinine Glucose POC Glucose 225 H Hemoglobin A1c Lactic Acid Calcium Magnesium Ferritin AST ALT Alkaline Phosphatase Lactate Dehydrogenase Troponin T C-Reactive Protein Total Protein Albumin LDL Cholesterol Direct Urine Creatinine Urine Total Protein Salicylates Acetaminophen Chest x-ray: image reviewed (stable to slightly improved infiltrates) Allied health notes reviewed: nursing
--- NOTE | 2021-11-06 14:46 | Progress Note ---
<LEONORSHANTE JaredUmair - Last Filed: 11/06/21 15:13> Assessment and Plan Assessment and plan: This is a 66-year-old female with past medical history of HTN and Obesity admitted for septic shock, s/p cardiac arrest with ROSC in the field now intubated and on ventilatory support Neuro: Acute Metabolic encephalopathy -Avoid delirium -Reorientation as needed -Sedated with fentanyl -RASS goal 0 to -1 -As needed analgesia and haldol -Seroquel 100 qhs/75 qam -Maintain sleep-wake cycle -CT head no acute focal parenchymal lesion in the brain -Neurology consulted, appreciate recommendations Cardiac: Atrial fibrillation/atrial flutter s/p cardiac arrest, HFrEF, hypotension, h/o htn -Outside hospital cardiac arrest with ROSC -Cardiology consulted, appreciate recommendations -s/p vasopressor support with levophed -Echocardiogram shows left ventricular systolic function severely decreased, LVEF 25 to 30%, no pericardial effusion -proBNP 5622 -BP monitoring per protocol -hold home antihtn regimen -Amiodarone bolus with drip -Cardizem bolus with gtt Respiratory: Acute hypoxic respiratory failure, right pneumothorax, Angioedema (resolved) -CCM consulted, appreciate recommendations -A.m. vent settings: Assist-control rate 14, tidal volume 500, PEEP 8, FiO2 35% -See RT notes for titration -ABG and CXR per [facility] -VAP bundle -SPO2 monitoring -Right chest tube to wall suction -Past 24 hours drainage: 40 mL -s/p steroids for angioedema GI: Protein calorie malnutrion, transaminitis likely shocked liver -24 hours + 719 mL -PPI -NTR consulted for tube feedings -changed to nepro -Trend LFTs -BM: 11/06 : Acute kidney injury likely secondary to vasomotor nephropathy, hyperkalemia, metabolic acidosis, -Nephrology consulted, appreciate recommendations -Krishna replaced 11/05 urinary retention -Strict intake and output -Renally dose medications -Avoid nephrotoxic medications -Daily weights -FWF -FeNa 0.05 indicating pre-renal -Medically treat hyperkalemia again -Trend BMP ID: Septic shock -COVID-19 PCR negative -S/p antibiotic therapy with Rocephin and azithromycin () -S/p Levophed gtt for hypotension -Follow-up culture data -Monitor WBC and temperature curve Endo: Hyperglycemia -Avoid hypoglycemia -Hbg A1C 6.7 -SSI and lantus q hs (titrate as needed) -Accu-Cheks q. 6 Heme: Acute DVT in the left posterior tibial vein and bilateral peroneal veins, Leukocytosis -D-dimer greater than 10,000 -CTA chest with no evidence of PE -Bilateral lower extremity ultrasound positive for DVT -Heparin gtt -Trend CBC -SCDs to BLE while in bed -Transfuse hemoglobin less than 7 -Monitor for signs of bleeding The high probability of a clinically significant, sudden or life threatening deterioration of the [multi] system(s) required my full and direct attention, intervention and personal management. The aggregate critical care time was [60] minutes. This time is in addition to time spent performing reported procedures but includes the following: [x] Data Review and interpretation [x] Patient assessment and monitoring of vital signs [x] Documentation [x] Medication orders and management Disposition Plan: icu Total Time Spent with Patient (Minutes): 60 History Interval history: This is a 66-year-old female with HTN and obesity who presented to the hospital on 10/29 via EMS with s/p cardiac arrest with CPR initiated by bystanders and upon EMS arrival a David airway was placed and ACLS was initiated. Patient had ROSC after 5-7 minutes and was started on epinephrine in route for hemodynamic support. Upon arrival to the emergency department patient GCS was noted to be 3 and she was biting the endotracheal tube with dilated pupils and copious vomitus and gastric secretions in the oropharynx/mouth/neck. David airway was removed and patient was intubated in the emergency department. Patient was admitted to the hospitalist service s/p cardiac arrest on sepsis and pneumonia protocol with consults to [facility]. Cardiology was consulted upon arrival to ICU. Hospital Course to Date: 10/30: Intubated and sedated, on fentanyl gtt. Open eyes spontaneously but does not follow any commands. On vasopressors, titrate as tolerated for MAP above 65. Patient febrile overnight, continue empiric IV Abx, culture data and COVID PCR pending. Patient is also s/p CT placement due to spontaneous pneumothorax. 2D echo is pending and Cardiology is consulted. 10/31: Patient remains intubated and following commands. Levophed drip stopped and potassium repleted. Patient started on tube feeding. Remains in soft bilateral restraints. 11/01: RN noted ST changes on BSM and 12 lead EKG obtained which showed ST. Given Ativan 1mg for agitation as she is maxed on fentanyl drip and IV push fentanyl did not seem to help. Patient was started on CPAP this morning by RT but remained on fentanyl drip and was having periods of apnea. Plan was to retry CPAP again in the p.m. with sedation off. 11/02: Rate increased r/t hypercapnea on ABG, sedation reduced. Given kionex for hyperkalemia and was started on levophed overnight for hypotension. 11/03: Overnight patient had tachycardia and was given Cardizem and Lopressor. Lopressor was repeated in the a.m. due to tachycardia. Patient will be started on amiodarone with a bolus per cardiology. Patient started on normal saline per liter per [facility] and steroids for angioedema. Noted to have bright red blood when suctioned from oh ETT. Remains on heparin drip as H/H is stable for now. Will reevaluate. Fentanyl drip was restarted last night due to agitation. Dr. Flores updated family today 11/04: Patient was sedated on fentanyl however off sedation is able to follow commands, a.m. labs completed in the p.m. and show hyperkalemia with increased renal function studies. Nephrology, neurology consulted by [facility]. Given Kayexalate, insulin and D50 for hyperkalemia. Patient remains on amiodarone. 11/05: Patient needed to be sedated on fentanyl again to today. overnight krishna was replaced. Hyperkalemia->given kionex 60 for 5.6. Repeat K 6-> Dr. Grant informed and requested bumex, kionex, insulin, d50, calcium gluconate and sodium bicarb with repeat BMP in 2 hours which were placed. HR remains elevated. 11/06: Patient remained in atrial fibrillation/atrial flutter with heart rate in the 150s despite being on amnio drip and was given amnio bolus, Cardizem bolus and started on Cardizem drip by cardiology. Patient is on beta-blockers p.o. scheduled and to feedings changed to Nepro. Kayexalate was given in the morning by nephrology due to hyperkalemia. Hospitalist Physical - Constitutional Vitals: Temp Pulse Resp BP Pulse Ox 98.9 F 124 H 14 132/93 94 11/06/21 11:18 11/06/21 14:20 11/06/21 14:20 11/06/21 14:20 11/06/21 14:20 General appearance: Present: no acute distress, obese, other (Intubated and Sedated) - EENT Eyes: Present: PERRL, EOM intact ENT: clear oral mucosa - Neck Neck: Present: normal ROM - Respiratory Respiratory effort: normal Respiratory: bilateral: diminished - Cardiovascular Rhythm: regular Heart Sounds: Present: S1 & S2. Absent: systolic murmur, diastolic murmur - Extremities Extremities: no ischemia, pulses intact, pulses symmetrical, normal temperature, normal color Peripheral Pulses: within normal limits - Abdominal General gastrointestinal: soft, non-tender, non-distended, normal bowel sounds - Integumentary Integumentary: Present: warm, dry - Psychiatric Psychiatric: cooperative, other (sedated) - Neurologic Neurologic: other (sedated, to follow commands, pupils equal and reactive) HEART Score - HEART Score Troponin: Troponin T 1.150 ng/mL (0.00-0.029) H* D 10/29/21 22:34 Results - Labs CBC & Chem 7: 11/05/21 04:20 11/06/21 08:07 Labs: Laboratory Last Values WBC 17.9 K/mm3 (4.5-11.0) H 11/05/21 04:20 RBC 3.64 M/mm3 (3.65-5.03) L 11/05/21 04:20 Hgb 9.7 gm/dl (10.1-14.3) L 11/05/21 04:20 Hct 31.1 % (30.3-42.9) 11/05/21 04:20 MCV 85 fl (79-97) 11/05/21 04:20 MCH 27 pg (28-32) L 11/05/21 04:20 MCHC 31 % (30-34) 11/05/21 04:20 RDW 16.4 % (13.2-15.2) H 11/05/21 04:20 Plt Count 224 K/mm3 (140-440) 11/05/21 04:20 Lymph % (Auto) 6.2 % (13.4-35.0) L 10/30/21 04:30 Kle[place] % (Auto) 5.5 % (0.0-7.3) 10/30/21 04:30 Eos % (Auto) 0.1 % (0.0-4.3) 10/30/21 04:30 Baso % (Auto) 0.1 % (0.0-1.8) 10/30/21 04:30 Lymph # (Auto) 1.0 K/mm3 (1.2-5.4) L 10/30/21 04:30 [place] # (Auto) 0.9 K/mm3 (0.0-0.8) H 10/30/21 04:30 Eos # (Auto) 0.0 K/mm3 (0.0-0.4) 10/30/21 04:30 Baso # (Auto) 0.0 K/mm3 (0.0-0.1) 10/30/21 04:30 Add Manual Diff Complete 10/29/21 15:10 Total Counted 100 10/29/21 15:10 Seg Neutrophils % 88.1 % (40.0-70.0) H 10/30/21 04:30 Seg Neuts % (Manual) 78.0 % (40.0-70.0) H 10/29/21 15:10 Band Neutrophils % 5.0 % 10/29/21 15:10 Lymphocytes % (Manual) 10.0 % (13.4-35.0) L 10/29/21 15:10 Reactive Lymphs % (Man) 0 % 10/29/21 15:10 Monocytes % (Manual) 5.0 % (0.0-7.3) 10/29/21 15:10 Eosinophils % (Manual) 0 % (0.0-4.3) 10/29/21 15:10 Basophils % (Manual) 0 % (0.0-1.8) 10/29/21 15:10 Metamyelocytes % 2.0 % 10/29/21 15:10 Myelocytes % 0 % 10/29/21 15:10 Promyelocytes % 0 % 10/29/21 15:10 Blast Cells % 0 % 10/29/21 15:10 Nucleated RBC % Not Reportable 10/29/21 15:10 Seg Neutrophils # 14.2 K/mm3 (1.8-7.7) H 10/30/21 04:30 Seg Neutrophils # Man 21.7 K/mm3 (1.8-7.7) H 10/29/21 15:10 Band Neutrophils # 1.4 K/mm3 10/29/21 15:10 Lymphocytes # (Manual) 2.8 K/mm3 (1.2-5.4) 10/29/21 15:10 Abs React Lymphs (Man) 0.0 K/mm3 10/29/21 15:10 Monocytes # (Manual) 1.4 K/mm3 (0.0-0.8) H 10/29/21 15:10 Eosinophils # (Manual) 0.0 K/mm3 (0.0-0.4) 10/29/21 15:10 Basophils # (Manual) 0.0 K/mm3 (0.0-0.1) 10/29/21 15:10 Metamyelocytes # 0.6 K/mm3 10/29/21 15:10 Myelocytes # 0.0 K/mm3 10/29/21 15:10 Promyelocytes # 0.0 K/mm3 10/29/21 15:10 Blast Cells # 0.0 K/mm3 10/29/21 15:10 WBC Morphology Not Reportable 10/29/21 15:10 Hypersegmented Neuts Not Reportable 10/29/21 15:10 Hyposegmented Neuts Not Reportable 10/29/21 15:10 Hypogranular Neuts Not Reportable 10/29/21 15:10 Smudge Cells Not Reportable 10/29/21 15:10 Toxic Granulation Not Reportable 10/29/21 15:10 Toxic Vacuolation Not Reportable 10/29/21 15:10 Dohle Bodies Not Reportable 10/29/21 15:10 Pelger-Huet Anomaly Not Reportable 10/29/21 15:10 Manny Rods Not Reportable 10/29/21 15:10 Platelet Estimate Consistent w auto 10/29/21 15:10 Clumped Platelets Not Reportable 10/29/21 15:10 Plt Clumps, EDTA Not Reportable 10/29/21 15:10 Large Platelets Not Reportable 10/29/21 15:10 Giant Platelets Not Reportable 10/29/21 15:10 Platelet Satelliting Not Reportable 10/29/21 15:10 Plt Morphology Comment Not Reportable 10/29/21 15:10 RBC Morphology Not Reportable 10/29/21 15:10 Dimorphic RBCs Not Reportable 10/29/21 15:10 Polychromasia Not Reportable 10/29/21 15:10 Hypochromasia Not Reportable 10/29/21 15:10 Poikilocytosis 1+ 10/29/21 15:10 Anisocytosis Not Reportable 10/29/21 15:10 Microcytosis 1+ 10/29/21 15:10 Macrocytosis Not Reportable 10/29/21 15:10 Spherocytes Not Reportable 10/29/21 15:10 Pappenheimer Bodies Not Reportable 10/29/21 15:10 Sickle Cells Not Reportable 10/29/21 15:10 Target Cells Not Reportable 10/29/21 15:10 Tear Drop Cells Not Reportable 10/29/21 15:10 Ovalocytes Few 10/29/21 15:10 Helmet Cells Not Reportable 10/29/21 15:10 Maradiaga-[place] Bodies Not Reportable 10/29/21 15:10 [place]bee Rings Not Reportable 10/29/21 15:10 [place] Cells Not Reportable 10/29/21 15:10 Bite Cells Not Reportable 10/29/21 15:10 Crenated Cell Not Reportable 10/29/21 15:10 Elliptocytes Few 10/29/21 15:10 Acanthocytes (Spur) Not Reportable 10/29/21 15:10 Rouleaux Not Reportable 10/29/21 15:10 Hemoglobin C Crystals Not Reportable 10/29/21 15:10 Schistocytes Not Reportable 10/29/21 15:10 Malaria parasites Not Reportable 10/29/21 15:10 Magdy Bodies Not Reportable 10/29/21 15:10 Hem Pathologist Commnt No 10/29/21 15:10 PT 17.2 Sec. (12.2-14.9) H 10/30/21 16:30 INR 1.27 (0.87-1.13) H 10/30/21 16:30 APTT 44.4 Sec. (24.2-36.6) H 10/30/21 16:30 D-Dimer > 31694 ng/mlDDU (0-234) H 10/30/21 Unknown Heparin Anti-Xa Level 1.24 U.I./ml (0.3-0.7) H 11/06/21 08:07 ABG pH 7.311 pH Units (7.350-7.450) L 11/06/21 05:40 ABG pCO2 60.2 mm Hg 11/06/21 05:40 ABG pO2 72.8 mm Hg (80.0-90.0) L 11/06/21 05:40 ABG HCO3 29.7 mmol/L (20.0-26.0) H 11/06/21 05:40 ABG O2 Saturation 94.1 % (95.0-99.0) L 11/06/21 05:40 ABG O2 Content 14.9 (0.0-44) 11/06/21 05:40 ABG Base Excess 2.3 mmol/L (-2.0-3.0) 11/06/21 05:40 ABG Hemoglobin 11.4 gm/dl (12.0-16.0) L 11/06/21 05:40 ABG Carboxyhemoglobin 1.3 % (0.0-5.0) 11/06/21 05:40 ABG Methemoglobin 0.6 % (0.0-1.5) 11/06/21 05:40 Oxyhemoglobin 92.3 % (95.0-99.0) L 11/06/21 05:40 FiO2 35 % 11/06/21 05:40 Sodium 145 mmol/L (137-145) 11/06/21 08:07 Potassium 5.2 mmol/L (3.6-5.0) H 11/06/21 08:07 Chloride 105.2 mmol/L (98-107) 11/06/21 08:07 Carbon Dioxide 28 mmol/L (22-30) 11/06/21 08:07 Anion Gap 17 mmol/L 11/06/21 08:07 BUN 85 mg/dL (7-17) H 11/06/21 08:07 Creatinine 2.3 mg/dL (0.6-1.2) H 11/06/21 08:07 Estimated GFR 26 ml/min 11/06/21 08:07 BUN/Creatinine Ratio 37 % 11/06/21 08:07 Glucose 236 mg/dL (65-100) H 11/06/21 08:07 POC Glucose 225 mg/dL (70-105) H 11/06/21 12:14 Hemoglobin A1c 6.7 % (4-6) H 10/31/21 04:30 Lactic Acid 0.70 mmol/L (0.7-2.0) 10/31/21 15:45 Calcium 9.2 mg/dL (8.4-10.2) 11/06/21 08:07 Phosphorus 3.60 mg/dL (2.5-4.5) 11/06/21 02:35 Magnesium 2.80 mg/dL (1.7-2.3) H 11/06/21 02:35 Ferritin 208.4 ng/mL (10.0-200.0) H 10/30/21 Unknown Total Bilirubin < 0.20 mg/dL (0.1-1.2) 11/06/21 02:35 AST 21 units/L (5-40) 11/06/21 02:35 ALT 77 units/L (7-56) H 11/06/21 02:35 Alkaline Phosphatase 84 units/L (35-129) 11/06/21 02:35 Ammonia 31.0 umol/L (25-60) 10/29/21 15:10 Lactate Dehydrogenase 469 units/L (91-180) H 10/30/21 Unknown Troponin T 1.150 ng/mL (0.00-0.029) H* D 10/29/21 22:34 C-Reactive Protein 13.40 mg/dL (0.00-1.30) H 10/30/21 Unknown Total Protein 6.3 g/dL (6.3-8.2) 11/06/21 02:35 Albumin 3.0 g/dL (3.9-5) L 11/06/21 02:35 Albumin/Globulin Ratio 0.9 % 11/06/21 02:35 Triglycerides 68 mg/dL (2-149) 10/29/21 19:40 Cholesterol 98 mg/dL (50-199) 10/29/21 19:40 LDL Cholesterol Direct 43 mg/dL (50-130) L 10/29/21 19:40 HDL Cholesterol 50 mg/dL (40-59) 10/29/21 19:40 Cholesterol/HDL Ratio 1.96 % 10/29/21 19:40 Procalcitonin 61.95 ng/mL (<0.15) 10/30/21 Unknown TSH 3.080 mlU/mL (0.270-4.200) 10/29/21 15:10 Urine Color Straw (Yellow) 10/29/21 18:15 Urine Turbidity Clear (Clear) 10/29/21 18:15 Urine pH 7.0 (5.0-7.0) 10/29/21 18:15 Ur Specific [place] 1.018 (1.003-1.030) 10/29/21 18:15 Urine Protein 100 mg/dl mg/dL (Negative) 10/29/21 18:15 Urine Glucose (UA) 150 mg/dL (Negative) 10/29/21 18:15 Urine Ketones Neg mg/dL (Negative) 10/29/21 18:15 Urine Blood Mod (Negative) 10/29/21 18:15 Urine Nitrite Neg (Negative) 10/29/21 18:15 Urine Bilirubin Neg (Negative) 10/29/21 18:15 Urine Urobilinogen < 2.0 mg/dL (<2.0) 10/29/21 18:15 Ur Leukocyte Esterase Neg (Negative) 10/29/21 18:15 Urine WBC (Auto) 5.0 /HPF (0.0-6.0) 10/29/21 18:15 Urine RBC (Auto) 2.0 /HPF (0.0-6.0) 10/29/21 18:15 U Epithel Cells (Auto) < 1.0 /HPF (0-13.0) 10/29/21 18:15 Urine Mucus Few /HPF 10/29/21 18:15 Urine Eosinophils None seen (None Seen) 11/04/21 Unknown Urine Creatinine 190.9 mg/dL (0.1-20.0) H 11/04/21 Unknown Protein/Creatinin Ratio 0.90 11/04/21 Unknown Urine Sodium 10 mmol/L 11/04/21 Unknown Urine Total Protein 172 mg/dL (5-11.8) H 11/04/21 Unknown Salicylates < 0.3 mg/dL (2.8-20.0) L 10/29/21 15:10 Urine Opiates Screen Negative 10/29/21 18:15 Urine Methadone Screen Negative 10/29/21 18:15 Acetaminophen 5.0 ug/mL (10.0-30.0) L 10/29/21 15:10 Ur Barbiturates Screen Negative 10/29/21 18:15 Ur Phencyclidine Scrn Negative 10/29/21 18:15 Ur Amphetamines Screen Negative 10/29/21 18:15 U Benzodiazepines Scrn Negative 10/29/21 18:15 Urine Cocaine Screen Negative 10/29/21 18:15 U Marijuana (THC) Screen Negative 10/29/21 18:15 Drugs of Abuse Note Disclamer 10/29/21 18:15 Plasma/Serum Alcohol < 0.01 % (0-0.07) 10/29/21 15:10 Coronavirus (PCR) Negative (Negative) 10/30/21 Unknown Blood Type O POSITIVE 10/29/21 15:10 Antibody Screen Negative 10/29/21 15:10 Krishna/IV: Voiding Method Indwelling Catheter Active Medications - Current Medications Current Medications: Generic Name Dose Route Start Last Admin Trade Name Freq PRN Reason Stop Dose Admin Acetaminophen 650 mg 10/29/21 17:04 11/03/21 11:35 Acetaminophen 325 Mg Tab PO 650 mg Q6H PRN Administration Pain, Mild (1-3) Acetaminophen 650 mg 10/29/21 17:04 Acetaminophen 650 Mg Rect Supp MI Q6H PRN Pain MILD(1-3)/Fever >100.5/NIEVES Lipase/Protease/Amylase 1 each 10/31/21 08:56 Lipase 10,500/Protease 25,000/Amylase 43,750 (Units) Dr Ivory FEEDTUBE PRN PRN For Clogged Feeding Tube Dextrose 0 ml 11/04/21 13:48 11/05/21 15:29 Dextrose 10% *Hypoglycemia IV 250 ml PRN PRN Administration Hypoglycemia Famotidine 10 mg 11/06/21 10:00 11/06/21 09:25 Famotidine 10 Mg Tab PO 10 mg BID RAMON Administration Fentanyl 50 mcg 11/04/21 14:32 11/06/21 08:36 Fentanyl 100 Mcg/2 Ml Inj IV 50 mcg Q2H PRN Administration Pain, Moderate (4-6) Heparin Sodium (Porcine) 4,300 unit 10/30/21 17:00 Heparin 10,000 Units/10 Ml Vial 40 unit/kg (4300 unit) IV Q6H PRN Anti-Xa Assay < 0.1 units/ml Hydrophilic Ointment 1 applic 10/29/21 14:29 Lip Therapy Vaseline TP Q2HR PRN Dry Lips Fentanyl Citrate 2,000 mcg in 100 mls @ 5.67 mls/hr 10/29/21 15:00 11/06/21 12:35 Fentanyl Drip Premix IV 4 mcg/kg/hr TITR RAMON 22.68 mls/hr Administration Protocol 1 MCG/KG/HR NORepinephrine/NS 8 MG-250 ML 8 mg in 250 mls @ 3.75 mls/hr 10/29/21 15:00 11/04/21 07:00 Norepinephrine/Ns 8 Mg-250 Ml (Double Conc) IV 0 mcg/min TITRATE RAMON 0 mls/hr Titration Protocol 2 MCG/MIN Heparin Sodium/Sodium Chloride 25,000 unit in 500 mls @ 30 mls/hr 10/30/21 17:00 11/06/21 11:10 Heparin/ 0.45% Nacl-25,000 Unit/500 Ml IV 1,500 units/hr TITR RAMON 30 mls/hr Titration Protocol 1,500 UNITS/HR Amiodarone HCl 900 mg/ 500 mls @ 33.333 mls/hr 11/03/21 11:00 11/05/21 08:29 Dextrose IV 0.5 mg/min DIRECT RAMON 16.667 mls/hr Administration Protocol 1 MG/MIN Diltiazem HCl 100 mg in 100 mls @ 5 mls/hr 11/06/21 10:00 11/06/21 10:52 Cardizem/D5w 100mg/100ml IV 0 mg/hr TITR RAMON 0 mls/hr Titration Protocol 5 MG/HR Insulin Glargine 10 units 11/05/21 22:00 11/05/21 22:28 Insulin Glargine 100 Units/Ml SUB-Q 10 units QHS [facility] Administration Insulin Human Lispro 0 unit 10/30/21 16:00 11/06/21 12:47 Insulin Lispro 100 Unit/Ml SUB-Q 4 unit Q6HR [facility] Administration Protocol Metoprolol Tartrate 25 mg 11/06/21 13:09 Metoprolol Tartrate 50 Mg Tab FEEDTUBE Q6H [facility] Multi-Ingred Cream/Lotion/Oil/Oint 1 applic 10/29/21 14:29 11/06/21 09:25 Mineral Oil/Petrolatum, White Ophth Oint 3.5 Gm OU 1 applic Q4HR PRN Administration Dry Eye(s) Quetiapine Fumarate 100 mg 02/12/22 22:00 11/05/21 22:30 Quetiapine 100 Mg Tab PO 100 mg QHS RAMON Administration Quetiapine Fumarate 75 mg 11/06/21 10:00 11/06/21 09:24 Quetiapine 25 Mg Tab PO 75 mg QAM RAMON Administration Senna/Docusate Sodium 1 tab 10/29/21 15:00 11/06/21 09:24 Sennosides/Docusate Sodium 8.6/50 Mg Tab FEEDTUBE 1 tab BID RAMON Administration Simple Syrup 15 ml 10/31/21 08:56 Simple Syrup 15 Ml FEEDTUBE PRN PRN Hypoglycemia Simple Syrup 30 ml 10/31/21 08:56 Simple Syrup 15 Ml FEEDTUBE PRN PRN Hypoglycemia Sodium Bicarbonate 325 mg 10/31/21 08:56 Sodium Bicarbonate 325 Mg Tab FEEDTUBE PRN PRN For Clogged Feeding Tube Sodium Chloride 10 ml 10/29/21 22:00 11/06/21 09:25 Sodium Chloride 0.9% 10 Ml Flush Syringe IV 10 ml BID RAMON Administration Sodium Chloride 10 ml 10/29/21 17:04 Sodium Chloride 0.9% 10 Ml Flush Syringe IV PRN PRN LINE FLUSH Nutrition/Malnutrition Assess - Dietary Evaluation Nutrition/Malnutrition Findings: Nutrition Notes Start: 10/30/21 09:50 Freq: Status: Active Protocol: Document 11/06/21 11:11 [facility] (Rec: 11/06/21 11:21 [facility] [id number]) Nutrition Notes Initial or Follow up Reassessment Current Diagnosis Sepsis,Heart Failure, Respiratory Failure Other Pertinent Diagnosis s/p cardiac arrest, ARF sec to ischemic acute tubular necrosis Current Diet TF - Vital HP at 60ml/hr Labs/Tests K 5.2 BUN 85 Cr 2.3 BG 236 Mg 2.8 Pertinent Medications Cardizem gtt Height 5 ft 10 in Weight 106.7 kg [place] Body Weight (kg) 68.18 BMI 33.7 Weight Status Obese Subjective/Other Information Phone call received for RN; pt with ARF and hyperkalemia. Request to change TF formula to Nepro. Pt remains on vent support. Per nephrology, no indication for renal replacement therapy at this time. Burn Absent Trauma Absent #1 Nutrition Diagnosis Inadequate oral intake Diagnosis Progress(for reassessment Continues documentation) Is patient on ventilator? Yes Is Patient Ambulatory and/or Out of Bed No REE-([place]-confined to bed) 2022.848 Kcal/Kg value to use for calculation 15 Approximate Energy Requirements Using 1601 kcal/Kg Calculation Used for Recommendations Kcal/kg Additional Notes Pro needs 0.8-1.2g/kg adjBW: 70-105g/day Fluids: 1 ml/kcal Nutrition Intervention Nutrition Support: Change TF formula to Nepro at 37ml/hr with 160ml water flush q4h. Kcal 1,598 Protein (gm) 72 Carbohydrates (gm) 143 Fat (gm) 85 Fluid (mL) 646 Fiber (gm) 11 Goal #1 TF tolerance Goal #2 TF to meet 65-70% energy and at least 75% pro needs Follow-Up By: 11/08/21 Additional Comments F/U: TF formula change/ tolerance, renal function, vent status <OLIVIA FLORES - Last Filed: 11/07/21 12:13> Assessment and Plan Assessment and plan: I saw and evaluated the patient. Discussed with the nurse practitioner and agree with their findings and plan as documented in this note. Hospitalist Physical - Constitutional Vitals: Temp Pulse Resp BP Pulse Ox 99 F 107 H 14 116/65 97 11/07/21 11:57 11/07/21 08:00 11/07/21 08:00 11/07/21 07:19 11/07/21 08:00 HEART Score - HEART Score Troponin: Troponin T 1.150 ng/mL (0.00-0.029) H* D 10/29/21 22:34 Results - Labs CBC & Chem 7: 11/07/21 06:30 11/07/21 06:30 Labs: Laboratory Last Values WBC 16.0 K/mm3 (4.5-11.0) H 11/07/21 06:30 RBC 3.06 M/mm3 (3.65-5.03) L 11/07/21 06:30 Hgb 8.2 gm/dl (10.1-14.3) L 11/07/21 06:30 Hct 26.1 % (30.3-42.9) L 11/07/21 06:30 MCV 85 fl (79-97) 11/07/21 06:30 MCH 27 pg (28-32) L 11/07/21 06:30 MCHC 31 % (30-34) 11/07/21 06:30 RDW 16.2 % (13.2-15.2) H 11/07/21 06:30 Plt Count 261 K/mm3 (140-440) 11/07/21 06:30 Lymph % (Auto) 6.2 % (13.4-35.0) L 10/30/21 04:30 [place] % (Auto) 5.5 % (0.0-7.3) 10/30/21 04:30 Eos % (Auto) 0.1 % (0.0-4.3) 10/30/21 04:30 Baso % (Auto) 0.1 % (0.0-1.8) 10/30/21 04:30 Lymph # (Auto) 1.0 K/mm3 (1.2-5.4) L 10/30/21 04:30 [place] # (Auto) 0.9 K/mm3 (0.0-0.8) H 10/30/21 04:30 Eos # (Auto) 0.0 K/mm3 (0.0-0.4) 10/30/21 04:30 Baso # (Auto) 0.0 K/mm3 (0.0-0.1) 10/30/21 04:30 Add Manual Diff Complete 11/07/21 06:30 Total Counted 100 11/07/21 06:30 Seg Neutrophils % 88.1 % (40.0-70.0) H 10/30/21 04:30 Seg Neuts % (Manual) 77.0 % (40.0-70.0) H 11/07/21 06:30 Band Neutrophils % 1.0 % 11/07/21 06:30 Lymphocytes % (Manual) 11.0 % (13.4-35.0) L 11/07/21 06:30 Reactive Lymphs % (Man) 3.0 % 11/07/21 06:30 Monocytes % (Manual) 2.0 % (0.0-7.3) 11/07/21 06:30 Eosinophils % (Manual) 0 % (0.0-4.3) 11/07/21 06:30 Basophils % (Manual) 0 % (0.0-1.8) 11/07/21 06:30 Metamyelocytes % 1.0 % 11/07/21 06:30 Myelocytes % 5.0 % 11/07/21 06:30 Promyelocytes % 0 % 11/07/21 06:30 Blast Cells % 0 % 11/07/21 06:30 Nucleated RBC % 2.0 % (0.0-0.9) H 11/07/21 06:30 Seg Neutrophils # 14.2 K/mm3 (1.8-7.7) H 10/30/21 04:30 Seg Neutrophils # Man 12.3 K/mm3 (1.8-7.7) H 11/07/21 06:30 Band Neutrophils # 0.2 K/mm3 11/07/21 06:30 Lymphocytes # (Manual) 1.8 K/mm3 (1.2-5.4) 11/07/21 06:30 Abs React Lymphs (Man) 0.5 K/mm3 11/07/21 06:30 Monocytes # (Manual) 0.3 K/mm3 (0.0-0.8) 11/07/21 06:30 Eosinophils # (Manual) 0.0 K/mm3 (0.0-0.4) 11/07/21 06:30 Basophils # (Manual) 0.0 K/mm3 (0.0-0.1) 11/07/21 06:30 Metamyelocytes # 0.2 K/mm3 11/07/21 06:30 Myelocytes # 0.8 K/mm3 11/07/21 06:30 Promyelocytes # 0.0 K/mm3 11/07/21 06:30 Blast Cells # 0.0 K/mm3 11/07/21 06:30 WBC Morphology Not Reportable 11/07/21 06:30 Hypersegmented Neuts Not Reportable 11/07/21 06:30 Hyposegmented Neuts Not Reportable 11/07/21 06:30 Hypogranular Neuts Not Reportable 11/07/21 06:30 Smudge Cells Not Reportable 11/07/21 06:30 Toxic Granulation Not Reportable 11/07/21 06:30 Toxic Vacuolation Not Reportable 11/07/21 06:30 Dohle Bodies Not Reportable 11/07/21 06:30 Pelger-Huet Anomaly Not Reportable 11/07/21 06:30 Manny Rods Not Reportable 11/07/21 06:30 Platelet Estimate Consistent w auto 11/07/21 06:30 Clumped Platelets Not Reportable 11/07/21 06:30 Plt Clumps, EDTA Not Reportable 11/07/21 06:30 Large Platelets 1+ 11/07/21 06:30 Giant Platelets Not Reportable 11/07/21 06:30 Platelet Satelliting Not Reportable 11/07/21 06:30 Plt Morphology Comment Not Reportable 11/07/21 06:30 RBC Morphology Not Reportable 11/07/21 06:30 Dimorphic RBCs Not Reportable 11/07/21 06:30 Polychromasia Not Reportable 11/07/21 06:30 Hypochromasia 1+ 11/07/21 06:30 Poikilocytosis Not Reportable 11/07/21 06:30 Anisocytosis Not Reportable 11/07/21 06:30 Microcytosis Not Reportable 11/07/21 06:30 Macrocytosis Not Reportable 11/07/21 06:30 Spherocytes 1+ 11/07/21 06:30 Pappenheimer Bodies Not Reportable 11/07/21 06:30 Sickle Cells Not Reportable 11/07/21 06:30 Target Cells 1+ 11/07/21 06:30 Tear Drop Cells Not Reportable 11/07/21 06:30 Ovalocytes Not Reportable 11/07/21 06:30 Helmet Cells Not Reportable 11/07/21 06:30 Maradiaga-[place] Bodies Not Reportable 11/07/21 06:30 [place]bee Rings Not Reportable 11/07/21 06:30 [place] Cells Not Reportable 11/07/21 06:30 Bite Cells Not Reportable 11/07/21 06:30 Crenated Cell Not Reportable 11/07/21 06:30 Elliptocytes Not Reportable 11/07/21 06:30 Acanthocytes (Spur) Not Reportable 11/07/21 06:30 Rouleaux Not Reportable 11/07/21 06:30 Hemoglobin C Crystals Not Reportable 11/07/21 06:30 Schistocytes Not Reportable 11/07/21 06:30 Malaria parasites Not Reportable 11/07/21 06:30 Magdy Bodies Not Reportable 11/07/21 06:30 Hem Pathologist Commnt No 11/07/21 06:30 PT 17.2 Sec. (12.2-14.9) H 10/30/21 16:30 INR 1.27 (0.87-1.13) H 10/30/21 16:30 APTT 44.4 Sec. (24.2-36.6) H 10/30/21 16:30 D-Dimer > 02195 ng/mlDDU (0-234) H 10/30/21 Unknown Heparin Anti-Xa Level 0.44 U.I./ml (0.3-0.7) 11/07/21 06:30 ABG pH 7.282 pH Units (7.350-7.450) L 11/06/21 14:28 ABG pCO2 66.8 mm Hg 11/06/21 14: ABG pO2 72.6 mm Hg (80.0-90.0) L 11/06/21 14: ABG HCO3 30.8 mmol/L (20.0-26.0) H 11/06/21 14:28 ABG O2 Saturation 93.7 % (95.0-99.0) L 11/06/21 14:28 ABG O2 Content 11.2 (0.0-44) 11/06/21 14:28 ABG Base Excess 3.2 mmol/L (-2.0-3.0) H 11/06/21 14:28 ABG Hemoglobin 8.6 gm/dl (12.0-16.0) L 11/06/21 14:28 ABG Carboxyhemoglobin 1.6 % (0.0-5.0) 11/06/21 14: ABG Methemoglobin 0.4 % (0.0-1.5) 11/06/21 14: Oxyhemoglobin 91.8 % (95.0-99.0) L 11/06/21 14: FiO2 34 % 11/06/21 14:28 Sodium 146 mmol/L (137-145) H 11/07/21 06:30 Potassium 3.9 mmol/L (3.6-5.0) 11/07/21 06:30 Chloride 105.8 mmol/L (98-107) 11/07/21 06:30 Carbon Dioxide 30 mmol/L (22-30) 11/07/21 06:30 Anion Gap 14 mmol/L 11/07/21 06:30 BUN 98 mg/dL (7-17) H 11/07/21 06:30 Creatinine 2.8 mg/dL (0.6-1.2) H 11/07/21 06:30 Estimated GFR 20 ml/min 11/07/21 06:30 BUN/Creatinine Ratio 35 % 11/07/21 06:30 Glucose 202 mg/dL (65-100) H 11/07/21 06:30 POC Glucose 179 mg/dL (70-105) H 11/07/21 11:26 Hemoglobin A1c 6.7 % (4-6) H 10/31/21 04:30 Lactic Acid 0.70 mmol/L (0.7-2.0) 10/31/21 15:45 Calcium 8.5 mg/dL (8.4-10.2) 11/07/21 06:30 Phosphorus 4.90 mg/dL (2.5-4.5) H D 11/07/21 06:30 Magnesium 2.90 mg/dL (1.7-2.3) H 11/07/21 06:30 Ferritin 208.4 ng/mL (10.0-200.0) H 10/30/21 Unknown Total Bilirubin < 0.20 mg/dL (0.1-1.2) 11/06/21 02:35 AST 21 units/L (5-40) 11/06/21 02:35 ALT 77 units/L (7-56) H 11/06/21 02:35 Alkaline Phosphatase 84 units/L (35-129) 11/06/21 02:35 Ammonia 31.0 umol/L (25-60) 10/29/21 15:10 Lactate Dehydrogenase 469 units/L (91-180) H 10/30/21 Unknown Troponin T 1.150 ng/mL (0.00-0.029) H* D 10/29/21 22:34 C-Reactive Protein 13.40 mg/dL (0.00-1.30) H 10/30/21 Unknown Total Protein 6.3 g/dL (6.3-8.2) 11/06/21 02:35 Albumin 3.0 g/dL (3.9-5) L 11/06/21 02:35 Albumin/Globulin Ratio 0.9 % 11/06/21 02:35 Triglycerides 68 mg/dL (2-149) 10/29/21 19:40 Cholesterol 98 mg/dL (50-199) 10/29/21 19:40 LDL Cholesterol Direct 43 mg/dL (50-130) L 10/29/21 19:40 HDL Cholesterol 50 mg/dL (40-59) 10/29/21 19:40 Cholesterol/HDL Ratio 1.96 % 10/29/21 19:40 Procalcitonin 61.95 ng/mL (<0.15) 10/30/21 Unknown TSH 3.080 mlU/mL (0.270-4.200) 10/29/21 15:10 Urine Color Straw (Yellow) 10/29/21 18:15 Urine Turbidity Clear (Clear) 10/29/21 18:15 Urine pH 7.0 (5.0-7.0) 10/29/21 18:15 Ur Specific [place] 1.018 (1.003-1.030) 10/29/21 18:15 Urine Protein 100 mg/dl mg/dL (Negative) 10/29/21 18:15 Urine Glucose (UA) 150 mg/dL (Negative) 10/29/21 18:15 Urine Ketones Neg mg/dL (Negative) 10/29/21 18:15 Urine Blood Mod (Negative) 10/29/21 18:15 Urine Nitrite Neg (Negative) 10/29/21 18:15 Urine Bilirubin Neg (Negative) 10/29/21 18:15 Urine Urobilinogen < 2.0 mg/dL (<2.0) 10/29/21 18:15 Ur Leukocyte Esterase Neg (Negative) 10/29/21 18:15 Urine WBC (Auto) 5.0 /HPF (0.0-6.0) 10/29/21 18:15 Urine RBC (Auto) 2.0 /HPF (0.0-6.0) 10/29/21 18:15 U Epithel Cells (Auto) < 1.0 /HPF (0-13.0) 10/29/21 18:15 Urine Mucus Few /HPF 10/29/21 18:15 Urine Eosinophils None seen (None Seen) 11/04/21 Unknown Urine Creatinine 190.9 mg/dL (0.1-20.0) H 11/04/21 Unknown Protein/Creatinin Ratio 0.90 11/04/21 Unknown Urine Sodium 10 mmol/L 11/04/21 Unknown Urine Total Protein 172 mg/dL (5-11.8) H 11/04/21 Unknown Salicylates < 0.3 mg/dL (2.8-20.0) L 10/29/21 15:10 Urine Opiates Screen Negative 10/29/21 18:15 Urine Methadone Screen Negative 10/29/21 18:15 Acetaminophen 5.0 ug/mL (10.0-30.0) L 10/29/21 15:10 Ur Barbiturates Screen Negative 10/29/21 18:15 Ur Phencyclidine Scrn Negative 10/29/21 18:15 Ur Amphetamines Screen Negative 10/29/21 18:15 U Benzodiazepines Scrn Negative 10/29/21 18:15 Urine Cocaine Screen Negative 10/29/21 18:15 U Marijuana (THC) Screen Negative 10/29/21 18:15 Drugs of Abuse Note Disclamer 10/29/21 18:15 Plasma/Serum Alcohol < 0.01 % (0-0.07) 10/29/21 15:10 Coronavirus (PCR) Negative (Negative) 10/30/21 Unknown Blood Type O POSITIVE 10/29/21 15:10 Antibody Screen Negative 10/29/21 15:10 Krishna/IV: Voiding Method Indwelling Catheter Active Medications - Current Medications Current Medications: Generic Name Dose Route Start Last Admin Trade Name Freq PRN Reason Stop Dose Admin Acetaminophen 650 mg 10/29/21 17:04 11/03/21 11:35 Acetaminophen 325 Mg Tab PO 650 mg Q6H PRN Administration Pain, Mild (1-3) Acetaminophen 650 mg 10/29/21 17:04 Acetaminophen 650 Mg Rect Supp MI Q6H PRN Pain MILD(1-3)/Fever >100.5/NIEVES Lipase/Protease/Amylase 1 each 10/31/21 08:56 Lipase 10,500/Protease 25,000/Amylase 43,750 (Units) Dr Ivory FEEDTUBE PRN PRN For Clogged Feeding Tube Dextrose 0 ml 11/04/21 13:48 11/05/21 15:29 Dextrose 10% *Hypoglycemia IV 250 ml PRN PRN Administration Hypoglycemia Famotidine 10 mg 11/06/21 10:00 11/07/21 09:02 Famotidine 10 Mg Tab PO 10 mg BID RAMON Administration Fentanyl 50 mcg 11/04/21 14:32 11/06/21 08:36 Fentanyl 100 Mcg/2 Ml Inj IV 50 mcg Q2H PRN Administration Pain, Moderate (4-6) Heparin Sodium (Porcine) 4,300 unit 10/30/21 17:00 Heparin 10,000 Units/10 Ml Vial 40 unit/kg (4300 unit) IV Q6H PRN Anti-Xa Assay < 0.1 units/ml Hydrophilic Ointment 1 applic 10/29/21 14:29 Lip Therapy Vaseline TP Q2HR PRN Dry Lips Fentanyl Citrate 2,000 mcg in 100 mls @ 5.67 mls/hr 10/29/21 15:00 11/07/21 08:52 Fentanyl Drip Premix IV 4 mcg/kg/hr TITR RAMON 22.68 mls/hr Administration Protocol 1 MCG/KG/HR NORepinephrine/NS 8 MG-250 ML 8 mg in 250 mls @ 3.75 mls/hr 10/29/21 15:00 11/04/21 07:00 Norepinephrine/Ns 8 Mg-250 Ml (Double Conc) IV 0 mcg/min TITRATE RAMON 0 mls/hr Titration Protocol 2 MCG/MIN Heparin Sodium/Sodium Chloride 25,000 unit in 500 mls @ 30 mls/hr 10/30/21 17:00 11/07/21 08:38 Heparin/ 0.45% Nacl-25,000 Unit/500 Ml IV 1,400 units/hr TITR RAMON 28 mls/hr Titration Protocol 1,500 UNITS/HR Amiodarone HCl 900 mg/ 500 mls @ 33.333 mls/hr 11/03/21 11:00 11/05/21 08:29 Dextrose IV 0.5 mg/min DIRECT RAMON 16.667 mls/hr Administration Protocol 1 MG/MIN Dextrose 1,000 mls @ 50 mls/hr 11/07/21 11:00 11/07/21 11:25 D5w IV 11/07/21 20:59 50 mls/hr DIRECT RAMON Administration Insulin Glargine 10 units 11/05/21 22:00 11/06/21 23:23 Insulin Glargine 100 Units/Ml SUB-Q 10 units QHS RAMON Administration Insulin Human Lispro 0 unit 10/30/21 16:00 11/07/21 11:31 Insulin Lispro 100 Unit/Ml SUB-Q 3 unit Q6HR RAMON Administration Protocol Metoprolol Tartrate 50 mg 11/07/21 12:00 11/07/21 11:25 Metoprolol Tartrate 50 Mg Tab FEEDTUBE 50 mg Q6H RAMON Administration Multi-Ingred Cream/Lotion/Oil/Oint 1 applic 10/29/21 14:29 11/06/21 09:25 Mineral Oil/Petrolatum, White Ophth Oint 3.5 Gm OU 1 applic Q4HR PRN Administration Dry Eye(s) Quetiapine Fumarate 100 mg 11/05/21 22:00 11/06/21 23:24 Quetiapine 100 Mg Tab PO 100 mg QHS RAMON Administration Quetiapine Fumarate 75 mg 11/06/21 10:00 11/07/21 09:02 Quetiapine 25 Mg Tab PO 50 mg QAM RAMON Administration Senna/Docusate Sodium 1 tab 10/29/21 15:00 11/07/21 09:02 Sennosides/Docusate Sodium 8.6/50 Mg Tab FEEDTUBE 1 tab BID RAMON Administration Simple Syrup 15 ml 10/31/21 08:56 Simple Syrup 15 Ml FEEDTUBE PRN PRN Hypoglycemia Simple Syrup 30 ml 10/31/21 08:56 Simple Syrup 15 Ml FEEDTUBE PRN PRN Hypoglycemia Sodium Bicarbonate 325 mg 10/31/21 08:56 Sodium Bicarbonate 325 Mg Tab FEEDTUBE PRN PRN For Clogged Feeding Tube Sodium Chloride 10 ml 10/29/21 22:00 11/07/21 09:03 Sodium Chloride 0.9% 10 Ml Flush Syringe IV 10 ml BID RAMON Administration Sodium Chloride 10 ml 10/29/21 17:04 Sodium Chloride 0.9% 10 Ml Flush Syringe IV PRN PRN LINE FLUSH Nutrition/Malnutrition Assess - Dietary Evaluation Nutrition/Malnutrition Findings: Nutrition Notes Start: 10/30/21 09:50 Freq: Status: Active Protocol: Document 11/06/21 11:11 YOVANY (Rec: 11/06/21 11:21 YOVANY [id number]) Nutrition Notes Initial or Follow up Reassessment Current Diagnosis Sepsis,Heart Failure, Respiratory Failure Other Pertinent Diagnosis s/p cardiac arrest, ARF sec to ischemic acute tubular necrosis Current Diet TF - Vital HP at 60ml/hr Labs/Tests K 5.2 BUN 85 Cr 2.3 BG 236 Mg 2.8 Pertinent Medications Cardizem gtt Height 5 ft 10 in Weight 106.7 kg [place] Body Weight (kg) 68.18 BMI 33.7 Weight Status Obese Subjective/Other Information Phone call received for RN; pt with ARF and hyperkalemia. Request to change TF formula to Nepro. Pt remains on vent support. Per nephrology, no indication for renal replacement therapy at this time. Burn Absent Trauma Absent #1 Nutrition Diagnosis Inadequate oral intake Diagnosis Progress(for reassessment Continues documentation) Is patient on ventilator? Yes Is Patient Ambulatory and/or Out of Bed No REE-([place]-St. Jeor-confined to bed) 2022.848 Kcal/Kg value to use for calculation 15 Approximate Energy Requirements Using 1601 kcal/Kg Calculation Used for Recommendations Kcal/kg Additional Notes Pro needs 0.8-1.2g/kg adjBW: 70-105g/day Fluids: 1 ml/kcal Nutrition Intervention Nutrition Support: Change TF formula to Nepro at 37ml/hr with 160ml water flush q4h. Kcal 1,598 Protein (gm) 72 Carbohydrates (gm) 143 Fat (gm) 85 Fluid (mL) 646 Fiber (gm) 11 Goal #1 TF tolerance Goal #2 TF to meet 65-70% energy and at least 75% pro needs Follow-Up By: 11/08/21 Additional Comments F/U: TF formula change/ tolerance, renal function, vent status
[2021-11-06 15:00] LABS: ABG Base Excess 3.2 mmol/L (-2.0-3.0); ABG HCO3 30.8 mmol/L (20.0-26.0); ABG Methemoglobin 0.4 % (0.0-1.5); ABG Oxygen Saturation 93.7 % (95.0-99.0); ABG PCO2 66.8 mm Hg; ABG PH 7.282 pH Units (7.350-7.450); ABG PO2 72.6 mm Hg (80.0-90.0)
[2021-11-06 15:50] LABS: Calcium 8.8 mg/dL (8.4-10.2)
[2021-11-06] MEDS: METOPROLOL TARTRATE 50 MG TAB FEEDTUBE SCH ×2 (16:16→23:23)
[2021-11-06] MEDS: HEPARIN/ 0.45% NACL DRIP 25,000 UNIT/500 ML BAG IV SCH ×2 (19:00)
[2021-11-06] MEDS: INSULIN GLARGINE 100 UNITS/ML SUB-Q SCH (23:23)
[2021-11-06] MEDS: QUEtiapine 100 MG TAB PO SCH (23:24)
[2021-11-07] MEDS: fentaNYL DRIP Premix 2,000 MCG/100 ML BAG IV SCH ×3 (03:58→13:44)
[2021-11-07] MEDS: INSULIN LISPRO 100 UNIT/ML SUB-Q SCH ×3 (06:24→18:10)
[2021-11-07] MEDS: METOPROLOL TARTRATE 50 MG TAB FEEDTUBE SCH ×4 (06:24→18:09)
[2021-11-07 07:08] LABS: Hematocrit 26.1 % (30.3-42.9); Hemoglobin 8.2 gm/dl (10.1-14.3); Mean Corpuscular HGB Conc 31 % (30-34); Mean Corpuscular Volume 85 fl (79-97); Platelet Count 261 K/mm3 (140-440); Red Blood Count 3.06 M/mm3 (3.65-5.03); Red Cell Distribution Width 16.2 % (13.2-15.2)
[2021-11-07 07:40] LABS: Calcium 8.5 mg/dL (8.4-10.2)
[2021-11-07] MEDS: QUEtiapine 25 MG TAB PO SCH (09:02)
[2021-11-07] MEDS: FAMOTIDINE 10 MG TAB PO SCH ×2 (09:02→22:20)
[2021-11-07] MEDS: SENNOSIDES/DOCUSATE SODIUM 8.6/50 MG TAB FEEDTUBE SCH ×2 (09:02→22:20)
--- NOTE | 2021-11-07 09:07 | Consultation ---
History of Present Illness Consult date: 11/07/21 Reason for Consult: Post cardiac arrest on 10/29/2021 History of present illness: Unresponsive History of present illness: 66 YO Female with Obesity presents to ED for evaluation. Patient is intubated and on ventilatory support at the time my evaluation is unable to provide history. Patient history taken EMS staff, ED staff, as well as patient family who was made available by telephone for interview. As per family the patient was attending [facility] services when the patient collapsed and lost consciousness. Witnesses began CPR. EMS was notified and upon arrival the patient was found to be in distress without perfusing cardiac rhythm. Patient initiated on ACLS protocol and subsequently intubated in the field and subsequent transported to [facility] for further care and evaluation of the aforementioned symptoms. The patient regained spontaneous circulation during transport. Patient seen and evaluated upon arrival and found to have acute hypoxemic respiratory failure, septic shock suspected secondary to aspiration pneumonia, metabolic acidosis, toxic metabolic encephalopathy, shock liver, and cardiac arrest with return of perfusing cardiac rhythm after initiation of ACLS protocol. Patient initiated on sepsis protocol as well as pneumonia protocol. Patient admitted to ICU. Critical care team consulted in ED. No further history is obtainable. No reports of fever, chills, chest pain, palpitation, productive cough, skin rash, recent contact, known exposure to COVID-19. No prior admission for review. No medication listed at time of admission for reconciliation. Advanced care planning conducted in ED. neurology consulted for evaluation of fluctuating mental status ,she is on Fentanyl drip 2-[address] brain initially is unremarkable she was diagnosed new onset AF and DVT in LEs started on heparin drip ,amiodarone,and fentanyl at 4 mc she developed pneumothorax and is currently with chest tube . Past History Past Medical History: other (See HPI) Past Surgical History: No surgical history, Other (Unable to obtain) Social history: single. denies: smoking, alcohol abuse, prescription drug abuse Family history: diabetes, hypertension Medications and Allergies Allergies Past History Past Medical History: atrial fib, DVT, other (See HPI) Past Surgical History: No surgical history, Other (Unable to obtain) Social history: single. denies: smoking, alcohol abuse, prescription drug abuse Family history: diabetes, hypertension Medications and Allergies Allergies Allergy/AdvReac Type Severity Reaction Status Date / Time No Known Allergies Allergy Verified 10/29/21 14:01 Active Meds: Active Medications Acetaminophen (Acetaminophen 325 Mg Tab) 650 mg PO Q6H PRN PRN Reason: Pain, Mild (1-3) Last Admin: 11/03/21 11:35 Dose: 650 mg Acetaminophen (Acetaminophen 650 Mg Rect Supp) 650 mg ID Q6H PRN PRN Reason: Pain MILD(1-3)/Fever >100.5/NIEVES Lipase/Protease/Amylase (Lipase 10,500/Protease 25,000/Amylase 43,750 (Units) Dr Cap) 1 each FEEDTUBE PRN PRN PRN Reason: For Clogged Feeding Tube Dextrose (Dextrose 10% *Hypoglycemia) 0 ml IV PRN PRN PRN Reason: Hypoglycemia Last Admin: 11/05/21 15:29 Dose: 250 ml Famotidine (Famotidine 10 Mg Tab) 10 mg PO BID RAMON Last Admin: 11/07/21 09:02 Dose: 10 mg Fentanyl (Fentanyl 100 Mcg/2 Ml Inj) 50 mcg IV Q2H PRN PRN Reason: Pain, Moderate (4-6) Last Admin: 11/06/21 08:36 Dose: 50 mcg Heparin Sodium (Porcine) (Heparin 10,000 Units/10 Ml Vial) 4,300 unit 40 unit/kg (4300 unit) IV Q6H PRN PRN Reason: Anti-Xa Assay < 0.1 units/ml Hydrophilic Ointment (Lip Therapy Vaseline) 1 applic TP Q2HR PRN PRN Reason: Dry Lips Fentanyl Citrate (Fentanyl Drip Premix) 2,000 mcg in 100 mls @ 5.67 mls/hr IV TITR RAMON; Protocol Last Admin: 11/07/21 08:52 Dose: 4 mcg/kg/hr, 22.68 mls/hr NORepinephrine/NS 8 MG-250 ML (Norepinephrine/Ns 8 Mg-250 Ml (Double Conc)) 8 mg in 250 mls @ 3.75 mls/hr IV TITRATE RAMON; Protocol Last Titration: 11/04/21 07:00 Dose: 0 mcg/min, 0 mls/hr Heparin Sodium/Sodium Chloride (Heparin/ 0.45% Nacl-25,000 Unit/500 Ml) 25,000 unit in 500 mls @ 30 mls/hr IV TITR RAMON; Protocol Last Titration: 11/07/21 08:38 Dose: 1,400 units/hr, 28 mls/hr Amiodarone HCl 900 mg/ (Dextrose) 500 mls @ 33.333 mls/hr IV DIRECT RAMON; Protocol Last Admin: 11/05/21 08:29 Dose: 0.5 mg/min, 16.667 mls/hr Diltiazem HCl (Cardizem/D5w 100mg/100ml) 100 mg in 100 mls @ 5 mls/hr IV TITR RAMON; Protocol Last Titration: 11/06/21 10:52 Dose: 0 mg/hr, 0 mls/hr Insulin Glargine (Insulin Glargine 100 Units/Ml) 10 units SUB-Q QHS [facility] Last Admin: 11/06/21 23:23 Dose: 10 units Insulin Human Lispro (Insulin Lispro 100 Unit/Ml) 0 unit SUB-Q Q6HR [facility]; Protocol Last Admin: 11/07/21 06:24 Dose: 3 unit Metoprolol Tartrate (Metoprolol Tartrate 50 Mg Tab) 25 mg FEEDTUBE Q6H [facility] Last Admin: 11/07/21 06:25 Dose: 25 mg Multi-Ingred Cream/Lotion/Oil/Oint (Mineral Oil/Petrolatum, White Ophth Oint 3.5 Gm) 1 applic OU Q4HR PRN PRN Reason: Dry Eye(s) Last Admin: 11/06/21 09:25 Dose: 1 applic Quetiapine Fumarate (Quetiapine 100 Mg Tab) 100 mg PO QHS [facility] Last Admin: 11/06/21 23:24 Dose: 100 mg Quetiapine Fumarate (Quetiapine 25 Mg Tab) 75 mg PO QAM [facility] Last Admin: 11/07/21 09:02 Dose: 50 mg Senna/Docusate Sodium (Sennosides/Docusate Sodium 8.6/50 Mg Tab) 1 tab FEEDTUBE BID [facility] Last Admin: 11/07/21 09:02 Dose: 1 tab Simple Syrup (Simple Syrup 15 Ml) 15 ml FEEDTUBE PRN PRN PRN Reason: Hypoglycemia Simple Syrup (Simple Syrup 15 Ml) 30 ml FEEDTUBE PRN PRN PRN Reason: Hypoglycemia Sodium Bicarbonate (Sodium Bicarbonate 325 Mg Tab) 325 mg FEEDTUBE PRN PRN PRN Reason: For Clogged Feeding Tube Sodium Chloride (Sodium Chloride 0.9% 10 Ml Flush Syringe) 10 ml IV BID [facility] Last Admin: 11/07/21 09:03 Dose: 10 ml Sodium Chloride (Sodium Chloride 0.9% 10 Ml Flush Syringe) 10 ml IV PRN PRN PRN Reason: LINE FLUSH Review of Systems ROS unobtainable: due to endotracheal tube, due to mental status Physical Examination - Vital Signs Vital Signs: Vital Signs Pulse Ox 96 10/29/21 14:03 - Constitutional General appearance: comfortable - EENT EENT: Present: PERRL, mucous membranes moist - Respiratory Respiratory: Present: lungs clear, rhonchi, other (had chest tube ) - Cardiovascular Cardiovascular: Present: other (AF ) Extremities: Present: no peripheral edema bilatateraly, no clubbing, cyanosis, other (DVT both lower extremities) - Gastrointestinal Gastrointestinal: Present: normoactive bowel sounds - Integumentary Integumentary: Present: normal - Neurologic Cranial nerve examination: PERRL, EOMI, other (corneal intact, gag is intact, EOMI,pupils 3 mm reactive bilateral) Detailed motor examination: other (she slightly squeeze in both hands to stimulation and order, no lewer ext. movment , reflexes are suppressed) Results - Laboratory Findings CBC and BMP: 11/07/21 06:30 11/07/21 06:30 Abnormal Lab Findings: Abnormal Labs 10/29/21 10/29/21 10/29/21 15:10 15:10 15:10 WBC 27.8 H RBC Hgb Hct MCH 27 L RDW Plt Count Lymph % (Auto) Lymph # (Auto) [place] # (Auto) Seg Neutrophils % Seg Neuts % (Manual) 78.0 H Lymphocytes % (Manual) 10.0 L Seg Neutrophils # Seg Neutrophils # Man 21.7 H Monocytes # (Manual) 1.4 H PT INR APTT D-Dimer Heparin Anti-Xa Level ABG pH ABG pO2 ABG HCO3 ABG O2 Saturation ABG Base Excess ABG Hemoglobin Oxyhemoglobin Sodium Potassium Chloride Carbon Dioxide BUN Creatinine Glucose POC Glucose Hemoglobin A1c Lactic Acid 6.80 H* Calcium Phosphorus Magnesium Ferritin AST ALT Alkaline Phosphatase Lactate Dehydrogenase Troponin T 0.089 H C-Reactive Protein Total Protein Albumin LDL Cholesterol Direct Urine Creatinine Urine Total Protein Salicylates Acetaminophen 10/29/21 10/29/21 10/29/21 15:10 15:10 15:10 WBC RBC Hgb Hct MCH RDW Plt Count Lymph % (Auto) Lymph # (Auto) [place] # (Auto) Seg Neutrophils % Seg Neuts % (Manual) Lymphocytes % (Manual) Seg Neutrophils # Seg Neutrophils # Man Monocytes # (Manual) PT INR APTT D-Dimer Heparin Anti-Xa Level ABG pH ABG pO2 ABG HCO3 ABG O2 Saturation ABG Base Excess ABG Hemoglobin Oxyhemoglobin Sodium 136 L Potassium 2.8 L* Chloride 93.4 L Carbon Dioxide 20 L BUN Creatinine Glucose 330 H POC Glucose Hemoglobin A1c Lactic Acid Calcium Phosphorus Magnesium Ferritin AST 1013 H ALT 1289 H Alkaline Phosphatase 246 H Lactate Dehydrogenase Troponin T C-Reactive Protein Total Protein Albumin LDL Cholesterol Direct Urine Creatinine Urine Total Protein Salicylates < 0.3 L Acetaminophen 5.0 L 10/29/21 10/29/21 10/29/21 15:11 16:01 19:29 WBC RBC Hgb Hct MCH RDW Plt Count Lymph % (Auto) Lymph # (Auto) [place] # (Auto) Seg Neutrophils % Seg Neuts % (Manual) Lymphocytes % (Manual) Seg Neutrophils # Seg Neutrophils # Man Monocytes # (Manual) PT INR APTT D-Dimer Heparin Anti-Xa Level ABG pH 7.307 L ABG pO2 64.1 L ABG HCO3 ABG O2 Saturation 90.8 L ABG Base Excess -2.9 L ABG Hemoglobin Oxyhemoglobin 89.3 L Sodium Potassium Chloride Carbon Dioxide BUN Creatinine Glucose POC Glucose Hemoglobin A1c Lactic Acid 2.60 H* Calcium Phosphorus Magnesium 2.90 H Ferritin AST ALT Alkaline Phosphatase Lactate Dehydrogenase Troponin T C-Reactive Protein Total Protein Albumin LDL Cholesterol Direct Urine Creatinine Urine Total Protein Salicylates Acetaminophen 10/29/21 10/29/21 10/30/21 19:40 22:34 04:30 WBC 16.2 H RBC Hgb Hct MCH 26 L RDW 15.5 H Plt Count Lymph % (Auto) 6.2 L Lymph # (Auto) 1.0 L [place] # (Auto) 0.9 H Seg Neutrophils % 88.1 H Seg Neuts % (Manual) Lymphocytes % (Manual) Seg Neutrophils # 14.2 H Seg Neutrophils # Man Monocytes # (Manual) PT INR APTT D-Dimer Heparin Anti-Xa Level ABG pH ABG pO2 ABG HCO3 ABG O2 Saturation ABG Base Excess ABG Hemoglobin Oxyhemoglobin Sodium Potassium Chloride Carbon Dioxide BUN Creatinine Glucose POC Glucose Hemoglobin A1c Lactic Acid Calcium Phosphorus Magnesium Ferritin AST ALT Alkaline Phosphatase Lactate Dehydrogenase Troponin T 1.950 H* D 1.150 H* D C-Reactive Protein Total Protein Albumin LDL Cholesterol Direct 43 L Urine Creatinine Urine Total Protein Salicylates Acetaminophen 10/30/21 10/30/21 10/30/21 04:30 04:35 05:45 WBC RBC Hgb Hct MCH RDW Plt Count Lymph % (Auto) Lymph # (Auto) [place] # (Auto) Seg Neutrophils % Seg Neuts % (Manual) Lymphocytes % (Manual) Seg Neutrophils # Seg Neutrophils # Man Monocytes # (Manual) PT INR APTT D-Dimer Heparin Anti-Xa Level ABG pH ABG pO2 69.5 L ABG HCO3 ABG O2 Saturation ABG Base Excess -2.7 L ABG Hemoglobin Oxyhemoglobin 94.7 L Sodium Potassium Chloride Carbon Dioxide 21 L BUN Creatinine Glucose 159 H POC Glucose 151 H Hemoglobin A1c Lactic Acid Calcium 7.9 L D Phosphorus Magnesium Ferritin AST 461 H ALT 686 H Alkaline Phosphatase 130 H Lactate Dehydrogenase Troponin T C-Reactive Protein Total Protein 5.6 L D Albumin 3.2 L LDL Cholesterol Direct Urine Creatinine Urine Total Protein Salicylates Acetaminophen 10/30/21 10/30/21 10/30/21 11:24 15:59 16:30 WBC RBC Hgb Hct MCH RDW Plt Count Lymph % (Auto) Lymph # (Auto) [place] # (Auto) Seg Neutrophils % Seg Neuts % (Manual) Lymphocytes % (Manual) Seg Neutrophils # Seg Neutrophils # Man Monocytes # (Manual) PT 17.2 H INR 1.27 H APTT 44.4 H D-Dimer Heparin Anti-Xa Level ABG pH ABG pO2 ABG HCO3 ABG O2 Saturation ABG Base Excess ABG Hemoglobin Oxyhemoglobin Sodium Potassium Chloride Carbon Dioxide BUN Creatinine Glucose POC Glucose 153 H 109 H Hemoglobin A1c Lactic Acid Calcium Phosphorus Magnesium Ferritin AST ALT Alkaline Phosphatase Lactate Dehydrogenase Troponin T C-Reactive Protein Total Protein Albumin LDL Cholesterol Direct Urine Creatinine Urine Total Protein Salicylates Acetaminophen 10/30/21 10/30/21 10/30/21 23:00 Unknown Unknown WBC RBC Hgb Hct MCH RDW Plt Count Lymph % (Auto) Lymph # (Auto) [place] # (Auto) Seg Neutrophils % Seg Neuts % (Manual) Lymphocytes % (Manual) Seg Neutrophils # Seg Neutrophils # Man Monocytes # (Manual) PT INR APTT D-Dimer > 38460 H Heparin Anti-Xa Level 0.82 H ABG pH ABG pO2 ABG HCO3 ABG O2 Saturation ABG Base Excess ABG Hemoglobin Oxyhemoglobin Sodium Potassium Chloride Carbon Dioxide BUN Creatinine Glucose POC Glucose Hemoglobin A1c Lactic Acid Calcium Phosphorus Magnesium Ferritin 208.4 H AST ALT Alkaline Phosphatase Lactate Dehydrogenase Troponin T C-Reactive Protein Total Protein Albumin LDL Cholesterol Direct Urine Creatinine Urine Total Protein Salicylates Acetaminophen 10/30/21 10/31/21 10/31/21 Unknown 04:30 04:30 WBC 14.4 H RBC Hgb Hct MCH 26 L RDW Plt Count Lymph % (Auto) Lymph # (Auto) [place] # (Auto) Seg Neutrophils % Seg Neuts % (Manual) Lymphocytes % (Manual) Seg Neutrophils # Seg Neutrophils # Man Monocytes # (Manual) PT INR APTT D-Dimer Heparin Anti-Xa Level ABG pH ABG pO2 ABG HCO3 ABG O2 Saturation ABG Base Excess ABG Hemoglobin Oxyhemoglobin Sodium Potassium 3.5 L Chloride 107.5 H Carbon Dioxide 20 L BUN 28 H Creatinine 1.7 H Glucose 113 H POC Glucose Hemoglobin A1c Lactic Acid Calcium 7.9 L Phosphorus Magnesium Ferritin AST ALT Alkaline Phosphatase Lactate Dehydrogenase 469 H Troponin T C-Reactive Protein 13.40 H Total Protein Albumin LDL Cholesterol Direct Urine Creatinine Urine Total Protein Salicylates Acetaminophen 10/31/21 10/31/21 10/31/21 04:30 05:11 15:30 WBC RBC Hgb Hct MCH RDW Plt Count Lymph % (Auto) Lymph # (Auto) [place] # (Auto) Seg Neutrophils % Seg Neuts % (Manual) Lymphocytes % (Manual) Seg Neutrophils # Seg Neutrophils # Man Monocytes # (Manual) PT INR APTT D-Dimer Heparin Anti-Xa Level ABG pH 7.222 L ABG pO2 61.5 L ABG HCO3 ABG O2 Saturation 86.2 L ABG Base Excess -6.3 L ABG Hemoglobin 11.2 L Oxyhemoglobin 84.5 L Sodium Potassium Chloride Carbon Dioxide BUN Creatinine Glucose POC Glucose 106 H Hemoglobin A1c 6.7 H Lactic Acid Calcium Phosphorus Magnesium Ferritin AST ALT Alkaline Phosphatase Lactate Dehydrogenase Troponin T C-Reactive Protein Total Protein Albumin LDL Cholesterol Direct Urine Creatinine Urine Total Protein Salicylates Acetaminophen 10/31/21 10/31/21 10/31/21 16:07 16:35 17:45 WBC RBC Hgb Hct MCH RDW Plt Count Lymph % (Auto) Lymph # (Auto) [place] # (Auto) Seg Neutrophils % Seg Neuts % (Manual) Lymphocytes % (Manual) Seg Neutrophils # Seg Neutrophils # Man Monocytes # (Manual) PT INR APTT D-Dimer Heparin Anti-Xa Level ABG pH 7.267 L ABG pO2 58.3 L ABG HCO3 ABG O2 Saturation 88.3 L ABG Base Excess -5.9 L ABG Hemoglobin 10.1 L Oxyhemoglobin 86.5 L Sodium Potassium Chloride Carbon Dioxide BUN Creatinine Glucose POC Glucose 115 H Hemoglobin A1c Lactic Acid Calcium Phosphorus Magnesium Ferritin AST ALT Alkaline Phosphatase Lactate Dehydrogenase Troponin T C-Reactive Protein Total Protein Albumin LDL Cholesterol Direct Urine Creatinine 383.6 H Urine Total Protein Salicylates Acetaminophen 11/01/21 11/01/21 11/01/21 00:06 05:08 06:00 WBC 12.6 H RBC 3.43 L Hgb 8.9 L Hct 28.7 L MCH 26 L RDW 15.7 H Plt Count 130 L Lymph % (Auto) Lymph # (Auto) [place] # (Auto) Seg Neutrophils % Seg Neuts % (Manual) Lymphocytes % (Manual) Seg Neutrophils # Seg Neutrophils # Man Monocytes # (Manual) PT INR APTT D-Dimer Heparin Anti-Xa Level ABG pH ABG pO2 ABG HCO3 ABG O2 Saturation ABG Base Excess ABG Hemoglobin Oxyhemoglobin Sodium Potassium Chloride Carbon Dioxide BUN Creatinine Glucose POC Glucose 114 H 120 H Hemoglobin A1c Lactic Acid Calcium Phosphorus Magnesium Ferritin AST ALT Alkaline Phosphatase Lactate Dehydrogenase Troponin T C-Reactive Protein Total Protein Albumin LDL Cholesterol Direct Urine Creatinine Urine Total Protein Salicylates Acetaminophen 11/01/21 11/01/21 11/01/21 06:00 11:43 14:00 WBC RBC Hgb Hct MCH RDW Plt Count Lymph % (Auto) Lymph # (Auto) [place] # (Auto) Seg Neutrophils % Seg Neuts % (Manual) Lymphocytes % (Manual) Seg Neutrophils # Seg Neutrophils # Man Monocytes # (Manual) PT INR APTT D-Dimer Heparin Anti-Xa Level ABG pH 7.349 L ABG pO2 75.6 L ABG HCO3 ABG O2 Saturation ABG Base Excess -3.9 L ABG Hemoglobin 9.8 L Oxyhemoglobin 93.5 L Sodium Potassium Chloride 114.1 H Carbon Dioxide 20 L BUN 33 H Creatinine Glucose 131 H POC Glucose 151 H Hemoglobin A1c Lactic Acid Calcium 7.7 L Phosphorus Magnesium Ferritin AST 79 H ALT 259 H Alkaline Phosphatase Lactate Dehydrogenase Troponin T C-Reactive Protein Total Protein 5.5 L Albumin 2.7 L LDL Cholesterol Direct Urine Creatinine Urine Total Protein Salicylates Acetaminophen 11/01/21 11/01/21 11/02/21 16:45 22:55 05:12 WBC RBC Hgb Hct MCH RDW Plt Count Lymph % (Auto) Lymph # (Auto) [place] # (Auto) Seg Neutrophils % Seg Neuts % (Manual) Lymphocytes % (Manual) Seg Neutrophils # Seg Neutrophils # Man Monocytes # (Manual) PT INR APTT D-Dimer Heparin Anti-Xa Level ABG pH ABG pO2 ABG HCO3 ABG O2 Saturation ABG Base Excess ABG Hemoglobin Oxyhemoglobin Sodium Potassium Chloride Carbon Dioxide BUN Creatinine Glucose POC Glucose 119 H 129 H 140 H Hemoglobin A1c Lactic Acid Calcium Phosphorus Magnesium Ferritin AST ALT Alkaline Phosphatase Lactate Dehydrogenase Troponin T C-Reactive Protein Total Protein Albumin LDL Cholesterol Direct Urine Creatinine Urine Total Protein Salicylates Acetaminophen 11/02/21 11/02/21 11/02/21 05:35 05:35 09:35 WBC 13.5 H RBC 3.60 L Hgb 9.7 L Hct MCH 27 L RDW 15.7 H Plt Count Lymph % (Auto) Lymph # (Auto) [place] # (Auto) Seg Neutrophils % Seg Neuts % (Manual) Lymphocytes % (Manual) Seg Neutrophils # Seg Neutrophils # Man Monocytes # (Manual) PT INR APTT D-Dimer Heparin Anti-Xa Level ABG pH 7.208 L ABG pO2 75.9 L ABG HCO3 ABG O2 Saturation 93.6 L ABG Base Excess -4.3 L ABG Hemoglobin 9.1 L Oxyhemoglobin 91.6 L Sodium Potassium 5.2 H D Chloride 112.6 H Carbon Dioxide BUN 32 H Creatinine Glucose 152 H POC Glucose Hemoglobin A1c Lactic Acid Calcium 8.2 L Phosphorus Magnesium 2.70 H Ferritin AST ALT Alkaline Phosphatase Lactate Dehydrogenase Troponin T C-Reactive Protein Total Protein Albumin LDL Cholesterol Direct Urine Creatinine Urine Total Protein Salicylates Acetaminophen 11/02/21 11/02/21 11/02/21 11:44 17:13 23:43 WBC RBC Hgb Hct MCH RDW Plt Count Lymph % (Auto) Lymph # (Auto) [place] # (Auto) Seg Neutrophils % Seg Neuts % (Manual) Lymphocytes % (Manual) Seg Neutrophils # Seg Neutrophils # Man Monocytes # (Manual) PT INR APTT D-Dimer Heparin Anti-Xa Level ABG pH ABG pO2 ABG HCO3 ABG O2 Saturation ABG Base Excess ABG Hemoglobin Oxyhemoglobin Sodium Potassium Chloride Carbon Dioxide BUN Creatinine Glucose POC Glucose 173 H 148 H 137 H Hemoglobin A1c Lactic Acid Calcium Phosphorus Magnesium Ferritin AST ALT Alkaline Phosphatase Lactate Dehydrogenase Troponin T C-Reactive Protein Total Protein Albumin LDL Cholesterol Direct Urine Creatinine Urine Total Protein Salicylates Acetaminophen 11/03/21 11/03/21 11/03/21 04:59 06:00 06:00 WBC RBC 3.43 L Hgb 9.1 L Hct 29.0 L MCH 26 L RDW 16.4 H Plt Count Lymph % (Auto) Lymph # (Auto) [place] # (Auto) Seg Neutrophils % Seg Neuts % (Manual) Lymphocytes % (Manual) Seg Neutrophils # Seg Neutrophils # Man Monocytes # (Manual) PT INR APTT D-Dimer Heparin Anti-Xa Level 0.17 L ABG pH ABG pO2 ABG HCO3 ABG O2 Saturation ABG Base Excess ABG Hemoglobin Oxyhemoglobin Sodium Potassium Chloride Carbon Dioxide BUN Creatinine Glucose POC Glucose 167 H Hemoglobin A1c Lactic Acid Calcium Phosphorus Magnesium Ferritin AST ALT Alkaline Phosphatase Lactate Dehydrogenase Troponin T C-Reactive Protein Total Protein Albumin LDL Cholesterol Direct Urine Creatinine Urine Total Protein Salicylates Acetaminophen 11/03/21 11/03/21 11/03/21 06:00 09:20 11:58 WBC RBC Hgb Hct MCH RDW Plt Count Lymph % (Auto) Lymph # (Auto) [place] # (Auto) Seg Neutrophils % Seg Neuts % (Manual) Lymphocytes % (Manual) Seg Neutrophils # Seg Neutrophils # Man Monocytes # (Manual) PT INR APTT D-Dimer Heparin Anti-Xa Level ABG pH 7.274 L ABG pO2 75.6 L ABG HCO3 ABG O2 Saturation 94.9 L ABG Base Excess -2.5 L ABG Hemoglobin 9.3 L Oxyhemoglobin 92.9 L Sodium 149 H Potassium Chloride 117.5 H Carbon Dioxide BUN 32 H Creatinine Glucose 173 H POC Glucose 192 H Hemoglobin A1c Lactic Acid Calcium 8.1 L Phosphorus Magnesium Ferritin AST ALT Alkaline Phosphatase Lactate Dehydrogenase Troponin T C-Reactive Protein Total Protein Albumin LDL Cholesterol Direct Urine Creatinine Urine Total Protein Salicylates Acetaminophen 11/03/21 11/03/21 11/04/21 18:22 Unknown 00:09 WBC RBC Hgb Hct MCH RDW Plt Count Lymph % (Auto) Lymph # (Auto) [place] # (Auto) Seg Neutrophils % Seg Neuts % (Manual) Lymphocytes % (Manual) Seg Neutrophils # Seg Neutrophils # Man Monocytes # (Manual) PT INR APTT D-Dimer Heparin Anti-Xa Level 0.29 L ABG pH ABG pO2 ABG HCO3 ABG O2 Saturation ABG Base Excess ABG Hemoglobin Oxyhemoglobin Sodium Potassium Chloride Carbon Dioxide BUN Creatinine Glucose POC Glucose 178 H 221 H Hemoglobin A1c Lactic Acid Calcium Phosphorus Magnesium Ferritin AST ALT Alkaline Phosphatase Lactate Dehydrogenase Troponin T C-Reactive Protein Total Protein Albumin LDL Cholesterol Direct Urine Creatinine Urine Total Protein Salicylates Acetaminophen 11/04/21 11/04/21 11/04/21 05:09 09:40 09:40 WBC 16.8 H RBC Hgb Hct MCH 27 L RDW 16.5 H Plt Count Lymph % (Auto) Lymph # (Auto) [place] # (Auto) Seg Neutrophils % Seg Neuts % (Manual) Lymphocytes % (Manual) Seg Neutrophils # Seg Neutrophils # Man Monocytes # (Manual) PT INR APTT D-Dimer Heparin Anti-Xa Level ABG pH ABG pO2 ABG HCO3 ABG O2 Saturation ABG Base Excess ABG Hemoglobin Oxyhemoglobin Sodium Potassium 5.9 H Chloride 108.5 H Carbon Dioxide BUN 54 H Creatinine 1.8 H Glucose 198 H POC Glucose 182 H Hemoglobin A1c Lactic Acid Calcium Phosphorus Magnesium 3.00 H Ferritin AST ALT Alkaline Phosphatase Lactate Dehydrogenase Troponin T C-Reactive Protein Total Protein Albumin LDL Cholesterol Direct Urine Creatinine Urine Total Protein Salicylates Acetaminophen 11/04/21 11/04/21 11/04/21 12:13 13:34 14:05 WBC RBC Hgb Hct MCH RDW Plt Count Lymph % (Auto) Lymph # (Auto) [place] # (Auto) Seg Neutrophils % Seg Neuts % (Manual) Lymphocytes % (Manual) Seg Neutrophils # Seg Neutrophils # Man Monocytes # (Manual) PT INR APTT D-Dimer Heparin Anti-Xa Level ABG pH 7.223 L ABG pO2 71.3 L ABG HCO3 ABG O2 Saturation 92.8 L ABG Base Excess ABG Hemoglobin 8.2 L Oxyhemoglobin 91.0 L Sodium Potassium Chloride Carbon Dioxide BUN Creatinine Glucose POC Glucose 184 H Hemoglobin A1c Lactic Acid Calcium Phosphorus Magnesium Ferritin AST ALT Alkaline Phosphatase Lactate Dehydrogenase Troponin T C-Reactive Protein Total Protein Albumin LDL Cholesterol Direct Urine Creatinine 184.6 H Urine Total Protein Salicylates Acetaminophen 11/04/21 11/04/21 11/05/21 18:02 Unknown 00:07 WBC RBC Hgb Hct MCH RDW Plt Count Lymph % (Auto) Lymph # (Auto) [place] # (Auto) Seg Neutrophils % Seg Neuts % (Manual) Lymphocytes % (Manual) Seg Neutrophils # Seg Neutrophils # Man Monocytes # (Manual) PT INR APTT D-Dimer Heparin Anti-Xa Level ABG pH ABG pO2 ABG HCO3 ABG O2 Saturation ABG Base Excess ABG Hemoglobin Oxyhemoglobin Sodium Potassium Chloride Carbon Dioxide BUN Creatinine Glucose POC Glucose 262 H 259 H Hemoglobin A1c Lactic Acid Calcium Phosphorus Magnesium Ferritin AST ALT Alkaline Phosphatase Lactate Dehydrogenase Troponin T C-Reactive Protein Total Protein Albumin LDL Cholesterol Direct Urine Creatinine 190.9 H Urine Total Protein 172 H Salicylates Acetaminophen 11/05/21 11/05/21 11/05/21 04:20 04:20 05:30 WBC 17.9 H RBC 3.64 L Hgb 9.7 L Hct MCH 27 L RDW 16.4 H Plt Count Lymph % (Auto) Lymph # (Auto) [place] # (Auto) Seg Neutrophils % Seg Neuts % (Manual) Lymphocytes % (Manual) Seg Neutrophils # Seg Neutrophils # Man Monocytes # (Manual) PT INR APTT D-Dimer Heparin Anti-Xa Level ABG pH ABG pO2 ABG HCO3 ABG O2 Saturation ABG Base Excess ABG Hemoglobin Oxyhemoglobin Sodium Potassium 5.6 H Chloride 108.4 H Carbon Dioxide BUN 71 H Creatinine 1.9 H Glucose 270 H POC Glucose 283 H Hemoglobin A1c Lactic Acid Calcium Phosphorus Magnesium Ferritin AST ALT Alkaline Phosphatase Lactate Dehydrogenase Troponin T C-Reactive Protein Total Protein Albumin LDL Cholesterol Direct Urine Creatinine Urine Total Protein Salicylates Acetaminophen 11/05/21 11/05/21 11/05/21 10:05 12:10 15:29 WBC RBC Hgb Hct MCH RDW Plt Count Lymph % (Auto) Lymph # (Auto) [place] # (Auto) Seg Neutrophils % Seg Neuts % (Manual) Lymphocytes % (Manual) Seg Neutrophils # Seg Neutrophils # Man Monocytes # (Manual) PT INR APTT D-Dimer Heparin Anti-Xa Level ABG pH 7.248 L ABG pO2 73.7 L ABG HCO3 26.2 H ABG O2 Saturation 93.1 L ABG Base Excess ABG Hemoglobin 8.9 L Oxyhemoglobin 91.4 L Sodium Potassium Chloride Carbon Dioxide BUN Creatinine Glucose POC Glucose 225 H 199 H Hemoglobin A1c Lactic Acid Calcium Phosphorus Magnesium Ferritin AST ALT Alkaline Phosphatase Lactate Dehydrogenase Troponin T C-Reactive Protein Total Protein Albumin LDL Cholesterol Direct Urine Creatinine Urine Total Protein Salicylates Acetaminophen 11/05/21 11/05/21 11/05/21 15:51 17:32 17:40 WBC RBC Hgb Hct MCH RDW Plt Count Lymph % (Auto) Lymph # (Auto) [place] # (Auto) Seg Neutrophils % Seg Neuts % (Manual) Lymphocytes % (Manual) Seg Neutrophils # Seg Neutrophils # Man Monocytes # (Manual) PT INR APTT D-Dimer Heparin Anti-Xa Level ABG pH ABG pO2 ABG HCO3 ABG O2 Saturation ABG Base Excess ABG Hemoglobin Oxyhemoglobin Sodium Potassium 5.2 H Chloride 107.8 H Carbon Dioxide BUN 79 H Creatinine 1.9 H Glucose 204 H POC Glucose 278 H 197 H Hemoglobin A1c Lactic Acid Calcium Phosphorus Magnesium Ferritin AST ALT Alkaline Phosphatase Lactate Dehydrogenase Troponin T C-Reactive Protein Total Protein Albumin LDL Cholesterol Direct Urine Creatinine Urine Total Protein Salicylates Acetaminophen 11/05/21 11/05/21 11/05/21 21:25 22:22 23:43 WBC RBC Hgb Hct MCH RDW Plt Count Lymph % (Auto) Lymph # (Auto) [place] # (Auto) Seg Neutrophils % Seg Neuts % (Manual) Lymphocytes % (Manual) Seg Neutrophils # Seg Neutrophils # Man Monocytes # (Manual) PT INR APTT D-Dimer Heparin Anti-Xa Level ABG pH ABG pO2 ABG HCO3 ABG O2 Saturation ABG Base Excess ABG Hemoglobin Oxyhemoglobin Sodium Potassium 5.3 H Chloride 109.2 H Carbon Dioxide BUN 81 H Creatinine 2.0 H Glucose 195 H POC Glucose 180 H 203 H Hemoglobin A1c Lactic Acid Calcium Phosphorus Magnesium Ferritin AST ALT Alkaline Phosphatase Lactate Dehydrogenase Troponin T C-Reactive Protein Total Protein Albumin LDL Cholesterol Direct Urine Creatinine Urine Total Protein Salicylates Acetaminophen 11/05/21 11/06/21 11/06/21 Unknown 02:35 05:09 WBC RBC Hgb Hct MCH RDW Plt Count Lymph % (Auto) Lymph # (Auto) [place] # (Auto) Seg Neutrophils % Seg Neuts % (Manual) Lymphocytes % (Manual) Seg Neutrophils # Seg Neutrophils # Man Monocytes # (Manual) PT INR APTT D-Dimer Heparin Anti-Xa Level ABG pH ABG pO2 ABG HCO3 ABG O2 Saturation ABG Base Excess ABG Hemoglobin Oxyhemoglobin Sodium 146 H Potassium 6.0 H Chloride 108.1 H 107.1 H Carbon Dioxide 21 L BUN 80 H 84 H Creatinine 2.0 H 2.0 H Glucose 238 H 235 H POC Glucose 215 H Hemoglobin A1c Lactic Acid Calcium Phosphorus Magnesium 2.80 H Ferritin AST ALT 77 H Alkaline Phosphatase Lactate Dehydrogenase Troponin T C-Reactive Protein Total Protein Albumin 3.0 L LDL Cholesterol Direct Urine Creatinine Urine Total Protein Salicylates Acetaminophen 11/06/21 11/06/21 11/06/21 05:40 08:07 08:07 WBC RBC Hgb Hct MCH RDW Plt Count Lymph % (Auto) Lymph # (Auto) [place] # (Auto) Seg Neutrophils % Seg Neuts % (Manual) Lymphocytes % (Manual) Seg Neutrophils # Seg Neutrophils # Man Monocytes # (Manual) PT INR APTT D-Dimer Heparin Anti-Xa Level 1.24 H ABG pH 7.311 L ABG pO2 72.8 L ABG HCO3 29.7 H ABG O2 Saturation 94.1 L ABG Base Excess ABG Hemoglobin 11.4 L Oxyhemoglobin 92.3 L Sodium Potassium 5.2 H Chloride Carbon Dioxide BUN 85 H Creatinine 2.3 H Glucose 236 H POC Glucose Hemoglobin A1c Lactic Acid Calcium Phosphorus Magnesium Ferritin AST ALT Alkaline Phosphatase Lactate Dehydrogenase Troponin T C-Reactive Protein Total Protein Albumin LDL Cholesterol Direct Urine Creatinine Urine Total Protein Salicylates Acetaminophen 11/06/21 11/06/21 11/06/21 12:14 12:57 14:28 WBC RBC Hgb Hct MCH RDW Plt Count Lymph % (Auto) Lymph # (Auto) [place] # (Auto) Seg Neutrophils % Seg Neuts % (Manual) Lymphocytes % (Manual) Seg Neutrophils # Seg Neutrophils # Man Monocytes # (Manual) PT INR APTT D-Dimer Heparin Anti-Xa Level ABG pH 7.282 L ABG pO2 72.6 L ABG HCO3 30.8 H ABG O2 Saturation 93.7 L ABG Base Excess 3.2 H ABG Hemoglobin 8.6 L Oxyhemoglobin 91.8 L Sodium Potassium Chloride Carbon Dioxide BUN 91 H Creatinine 2.6 H Glucose 259 H POC Glucose 225 H Hemoglobin A1c Lactic Acid Calcium Phosphorus Magnesium Ferritin AST ALT Alkaline Phosphatase Lactate Dehydrogenase Troponin T C-Reactive Protein Total Protein Albumin LDL Cholesterol Direct Urine Creatinine Urine Total Protein Salicylates Acetaminophen 11/06/21 11/06/21 11/06/21 17:28 19:20 21:30 WBC RBC Hgb Hct MCH RDW Plt Count Lymph % (Auto) Lymph # (Auto) [place] # (Auto) Seg Neutrophils % Seg Neuts % (Manual) Lymphocytes % (Manual) Seg Neutrophils # Seg Neutrophils # Man Monocytes # (Manual) PT INR APTT D-Dimer Heparin Anti-Xa Level 0.73 H ABG pH ABG pO2 ABG HCO3 ABG O2 Saturation ABG Base Excess ABG Hemoglobin Oxyhemoglobin Sodium Potassium Chloride Carbon Dioxide BUN 95 H Creatinine 2.9 H Glucose 233 H POC Glucose 206 H Hemoglobin A1c Lactic Acid Calcium Phosphorus Magnesium Ferritin AST ALT Alkaline Phosphatase Lactate Dehydrogenase Troponin T C-Reactive Protein Total Protein Albumin LDL Cholesterol Direct Urine Creatinine Urine Total Protein Salicylates Acetaminophen 11/06/21 11/07/21 11/07/21 22:56 05:06 06:30 WBC RBC Hgb Hct MCH RDW Plt Count Lymph % (Auto) Lymph # (Auto) [place] # (Auto) Seg Neutrophils % Seg Neuts % (Manual) Lymphocytes % (Manual) Seg Neutrophils # Seg Neutrophils # Man Monocytes # (Manual) PT INR APTT D-Dimer Heparin Anti-Xa Level ABG pH ABG pO2 ABG HCO3 ABG O2 Saturation ABG Base Excess ABG Hemoglobin Oxyhemoglobin Sodium 146 H Potassium Chloride Carbon Dioxide BUN 98 H Creatinine 2.8 H Glucose 202 H POC Glucose 215 H 172 H Hemoglobin A1c Lactic Acid Calcium Phosphorus 4.90 H D Magnesium 2.90 H Ferritin AST ALT Alkaline Phosphatase Lactate Dehydrogenase Troponin T C-Reactive Protein Total Protein Albumin LDL Cholesterol Direct Urine Creatinine Urine Total Protein Salicylates Acetaminophen 11/07/21 06:30 WBC 16.0 H RBC 3.06 L Hgb 8.2 L Hct 26.1 L MCH 27 L RDW 16.2 H Plt Count Lymph % (Auto) Lymph # (Auto) [place] # (Auto) Seg Neutrophils % Seg Neuts % (Manual) Lymphocytes % (Manual) Seg Neutrophils # Seg Neutrophils # Man Monocytes # (Manual) PT INR APTT D-Dimer Heparin Anti-Xa Level ABG pH ABG pO2 ABG HCO3 ABG O2 Saturation ABG Base Excess ABG Hemoglobin Oxyhemoglobin Sodium Potassium Chloride Carbon Dioxide BUN Creatinine Glucose POC Glucose Hemoglobin A1c Lactic Acid Calcium Phosphorus Magnesium Ferritin AST ALT Alkaline Phosphatase Lactate Dehydrogenase Troponin T C-Reactive Protein Total Protein Albumin LDL Cholesterol Direct Urine Creatinine Urine Total Protein Salicylates Acetaminophen Assessment and Plan Assessment and Plan Assessment and plan: This is a 66-year-old female with past medical history of HTN and Obesity admitted for septic shock, s/p cardiac arrest with ROSC in the field now intubated and on ventilatory support # Acute encephalopathy -possibly multifactorial , in aopert is related to medications and or underlying infection , anoxic brain injury and or CVA can not be totally excluded -Suggest EEG and Brain MRI if possibkle -cut down sedation as possible -PT therapy evaluation and rom to be done daily -CT head no acute focal parenchymal lesion in the brain #New onset Atrial fibrillation/atrial flutter s/p cardiac arrest, HFrEF, hypotension, h/o htn -Outside hospital cardiac arrest with ROSC -s/p vasopressor support with levophed -- weaned off -Echocardiogram shows left ventricular systolic function severely decreased, LVEF 25 to 30%, no pericardial effusion -proBNP 5622 -Amiodarone bolus with drip -Cardizem bolus with gtt -Heparin drip # Acute hypoxic respiratory failure, right pneumothorax, Angioedema (resolved) -SPO2 monitoring -Right chest tube to wall suction -s/p steroids for angioedema # Protein calorie malnutrion, transaminitis likely shocked liver -Trend LFTs -BM: 11/06 # Acute kidney injury likely secondary to vasomotor nephropathy, hyperkalemia, metabolic acidosis, -Bun/Cr#11/1.2 today # Septic shock -COVID-19 PCR negative -S/p antibiotic therapy with Rocephin and azithromycin () # Hyperglycemia -Avoid hypoglycemia -Hbg A1C 6.7 # Acute DVT in the left posterior tibial vein and bilateral peroneal veins, Leukocytosis -D-dimer greater than 10,000 -CTA chest with no evidence of PE -Bilateral lower extremity ultrasound positive for DVT -Heparin gtt -Trend CBC -SCDs to BLE while in bed -Transfuse hemoglobin less than 7 -Monitor for signs of bleeding. PLAN 1- Cut down sedation as possible 2- EEG 3- MRI brain 4- treat underlying infection 5-Iv heparin for now The high probability of a clinically significant, sudden or life threatening deterioration of the [multi] system(s) required my full and direct attention, intervention and personal management. The aggregate critical care time was [60] minutes. This time is in addition to time spent performing reported procedures but includes the following: [x] Data Review and interpretation [x] Patient assessment and monitoring of vital signs [x] Documentation [x] Medication orders and management Disposition Plan: icu Total Time Spent with Patient (Minutes): 45Minutes
[2021-11-07 10:13] LABS: Band Neutrophils # (Manual) 0.2 K/mm3; Basophils % (Manual) 0 % (0.0-1.8); Eosinophils % (Manual) 0 % (0.0-4.3); Hypochromasia 1+; Large Platelets 1+; Myelocytes # (Manual) 0.8 K/mm3; Platelet Estimate Consistent w Auto; Spherocytes 1+; Target Cells 1+; Total Cells Counted 100
--- NOTE | 2021-11-07 10:13 | Progress Note ---
Assessment and Plan Patient is a 66-year-old female with unknown past medical history brought into the ED following outside of hospital cardiac arrest thought to be PEA with thought to have downtime of 7 to 9 minutes however details are unclear S/P PEA cardiopulmonary arrest-No longer on pressors Acute hypoxic respiratory failure-pulm following Septic shock Aspiration pneumonia Pneumothorax- s/p CT Acute DVT-on Heparin gtt Hypokalemia Transaminitis Echo 10/30/2021-technically difficult study due to body habitus. EF 25 to 30%. Right ventricular systolic function is normal. No pericardial effusion Plan: Stop Cardizem drip due to low EF and patient heart rate has significantly improved Initiate metoprolol 50 mg p.o. every 6 hours Continue amiodarone drip No LAYO/ ARB due to elevated creatinine Patient currently anticoagulated on heparin drip Patient seen in conjunction with Dr. Archer who agrees with this plan of care - Patient Problems (1) Cardiopulmonary arrest Current Visit: Yes Status: Acute (2) Hypokalemia Current Visit: Yes Status: Acute (3) Transaminitis Current Visit: Yes Status: Acute (4) Aspiration pneumonia Current Visit: Yes Status: Acute (5) Acute hypoxemic respiratory failure Current Visit: Yes Status: Acute (6) Septic shock Current Visit: Yes Status: Acute (7) Toxic metabolic encephalopathy Current Visit: Yes Status: Acute (8) Shock liver Current Visit: Yes Status: Acute Subjective Date of service: 11/07/21 Principal diagnosis: AHRF; Cardiac arrest; R. pneumothorax; pneumonia; AMS; DVT's; SIERRA; Obesity Interval history: Patient remains intubated and sedated Patient is currently atrial flutter rate trending in 80s on monitor Objective Vital Signs Temp Pulse Pulse Resp BP Pulse Ox 11/07/21 08:00 99 F 11/07/21 07:19 80 116/65 97 11/07/21 06:25 102 H 107/61 11/07/21 06:24 103 H 143/76 11/07/21 04:40 79 121/67 96 11/07/21 04:00 107 H 107 H 14 97 11/07/21 03:09 99.5 F 11/07/21 00:00 79 79 14 95 11/06/21 23:44 99.5 F 11/06/21 23:23 105 H 150/120 11/06/21 23:11 128 H 146/118 95 02/13/22 20:00 99.9 F H 68 68 14 97 11/06/21 19:13 79 112/71 96 11/06/21 16:16 108 H 115/64 11/06/21 15:41 117 H 117 H 21 96 11/06/21 15:31 117 H 14 125/65 95 11/06/21 15:01 125 H 16 135/71 94 11/06/21 14:31 147 H 25 H 142/99 96 11/06/21 14:20 124 H 14 132/93 94 11/06/21 14:01 148 H 28 H 132/93 95 11/06/21 13:31 124 H 20 133/107 95 11/06/21 13:01 111 H 14 109/58 95 11/06/21 12:30 100 H 14 109/58 95 11/06/21 12:00 77 14 102/60 95 11/06/21 11:30 76 14 94/58 95 11/06/21 11:20 75 14 94 11/06/21 11:18 98.9 F 75 11/06/21 11:01 76 14 91/57 95 11/06/21 10:30 153 H 17 144/92 94 11/06/21 10:20 153 H 166/103 - Physical Examination General: Other (Intubated and sedated) HEENT: Positive: Normocephaly Neck: Positive: trachea midline Cardiac: Positive: Irregularly Regular Lungs: Positive: Ventilated Respirations Neuro: Positive: Other (sedated) Abdomen: Positive: Soft, Active Bowel Sounds Skin: Negative: Rash Musculoskeletal: No Fluid Collection Extremities: Present: edema - Labs and Meds CBC 11/07/21 Range/Units 06:30 WBC 16.0 H (4.5-11.0) K/mm3 RBC 3.06 L (3.65-5.03) M/mm3 Hgb 8.2 L (10.1-14.3) gm/dl Hct 26.1 L (30.3-42.9) % Plt Count 261 (140-440) K/mm3 Comprehensive Metabolic Panel 11/06/21 11/06/21 11/07/21 Range/Units 12:57 19:20 06:30 Sodium 143 144 146 H (137-145) mmol/L Potassium 4.9 4.8 3.9 (3.6-5.0) mmol/L Chloride 105.4 104.3 105.8 (98-107) mmol/L Carbon Dioxide 28 30 30 (22-30) mmol/L BUN 91 H 95 H 98 H (7-17) mg/dL Creatinine 2.6 H 2.9 H 2.8 H (0.6-1.2) mg/dL Glucose 259 H 233 H 202 H (65-100) mg/dL Calcium 8.8 9.0 8.5 (8.4-10.2) mg/dL - Imaging and Cardiology Echo: report reviewed - Telemetry EKG Rhythm: Atrial Flutter - EKG Supraventricular dysrhythmia: atrial flutter Ventricular dysrhythmias: ventricular premature com - Allied health notes Allied health notes reviewed: nursing
--- NOTE | 2021-11-07 10:24 | Progress Note ---
Assessment and Plan Assessment and plan: This is a 66-year-old female with past medical history of HTN and Obesity admitted for septic shock, s/p cardiac arrest with ROSC in the field now intubated and on ventilatory support Hospital Course to Date: 10/30: Intubated and sedated, on fentanyl gtt. Open eyes spontaneously but does not follow any commands. On vasopressors, titrate as tolerated for MAP above 65. Patient febrile overnight, continue empiric IV Abx, culture data and COVID PCR pending. Patient is also s/p CT placement due to spontaneous pneumothorax. 2D echo is pending and Cardiology is consulted. 10/31: Patient remains intubated and following commands. Levophed drip stopped and potassium repleted. Patient started on tube feeding. Remains in soft bilateral restraints. 11/01: RN noted ST changes on BSM and 12 lead EKG obtained which showed ST. Given Ativan 1mg for agitation as she is maxed on fentanyl drip and IV push fentanyl did not seem to help. Patient was started on CPAP this morning by RT but remained on fentanyl drip and was having periods of apnea. Plan was to retry CPAP again in the p.m. with sedation off. 11/02: Rate increased r/t hypercapnea on ABG, sedation reduced. Given kionex for hyperkalemia and was started on levophed overnight for hypotension. 11/03: Overnight patient had tachycardia and was given Cardizem and Lopressor. Lopressor was repeated in the a.m. due to tachycardia. Patient will be started on amiodarone with a bolus per cardiology. Patient started on normal saline per liter per [facility] and steroids for angioedema. Noted to have bright red blood when suctioned from [place] ETT. Remains on heparin drip as H/H is stable for now. Will reevaluate. Fentanyl drip was restarted last night due to agitation. Dr. Flores updated family today 11/04: Patient was sedated on fentanyl however off sedation is able to follow commands, a.m. labs completed in the p.m. and show hyperkalemia with increased renal function studies. Nephrology, neurology consulted by [facility]. Given Kayexalate, insulin and D50 for hyperkalemia. Patient remains on amiodarone. 11/05: Patient needed to be sedated on fentanyl again to today. overnight krishna was replaced. Hyperkalemia->given kionex 60 for 5.6. Repeat K 6-> Dr. Grant informed and requested bumex, kionex, insulin, d50, calcium gluconate and sodium bicarb with repeat BMP in 2 hours which were placed. HR remains elevated. 11/06: Patient remained in atrial fibrillation/atrial flutter with heart rate in the 150s despite being on amnio drip and was given amnio bolus, Cardizem bolus and started on Cardizem drip by cardiology. Patient is on beta-blockers p.o. scheduled and to feedings changed to Nepro. Kayexalate was given in the morning by nephrology due to hyperkalemia. 11/07: Patient is only responsive to mild stimuli, precedex added in an attempt to wean off fentanyl gtt to better assess her mental status. Neurology also on consult, pending MRI and EEG. Patient remains in Aflutter this am, HR in the 80 to 90s, still on amiodarone and heparin gtt. Assessment and Plan #New Onset Atrial fibrillation/atrial flutter #HFrEF #s/p Cardiac Arrest with ROSC - Outside hospital cardiac arrest with ROSC - Now with new onset Afib/Aflutter - Cardiology consulted, appreciate recommendations - S/p Cardizem gtt- d/c due to low EF - 10/30 Echocardiogram shows left ventricular systolic function severely decreased, LVEF 25 to 30%, no pericardial effusion - now on Amiodarone gtt - Patient remains in Aflutter this am, but in a control rate - BB added per Cardio - Continue blood pressure monitor per protocol - Off pressors; Maintain MAP above 65 - Strick I&Os and daily weight #Acute Hypoxemic Respiratory Failure #Spontaneous Pneumothorax s/p CT placement - Intubated in the filed post cardiac arrest on 10/29 - Vent Setting:PRVC-35%,8,14,500 - This Am ABG pending - CCM consulted, appreciate recommendations - VAP bundle addressed - Aspiration precaution HOB above 30 - Daily SBT and SAT trials as tolerated - Daily ABG and CXR - Continue SPO2 monitoring for SPO2 goal above 92% #Acute Metabolic Encephalopathy - Intubated and sedated, max on fentanyl gtt - Open eyes to mild stimuli, not following commands - Neurology on consult - EEG and MRI pending - Precedex gtt added, plan to wean off fentanyl to better assess mentation - Titrate sedation for RASS goal of 0 to -1 - Avoid benzodiazepine to reduce the possibility of delirium - Prn analgesia for CPOT greater than 3 #Acute Kidney Injury (SIERRA) most likely ATN - Due to hypoperfusion/hypotension and septic shock - Nephrology consulted, appreciate recommendations - Strict intake and output - Avoid nephrotoxic medications; Renally dose medications - Monitor and replace electrolytes as needed - Trend BMP #Septic Shock #Leukocytosis - s/p cardiac arrest with ROSC in the field - Presented febrile, with elevated lactic, leukocytosis, and hypotnesive required pressors - Now afebrile and off pressors - Blood culture, urine and sputum culture are negative - WBCs downtrending - Patient completed X5days course of IV Abx - Will continue to trend CBC #Acute BLE DVT - [place] [id number] on admit - CTA chest with no evidence of PE - 10/30 BLE doppler + acute DVT in the left posterior tibial vein and bilateral peroneal veins - Remains on Heaprin gtt per protocol #Transaminitis #Shock liver - Most likely reactive s/p cardiac arrest - LFT down trending - Continue to trend LTFs #Hyperglycemia - Hbg A1C 6.7 - Continue SSI and lantus qHS - Avoid Hypoglycemia The high probability of a clinically significant, sudden or life threatening deterioration of the [multiple] system(s) required my full and direct attention, intervention and personal management. The aggregate critical care time was [60] minutes. This time is in addition to time spent performing reported procedures but includes the following: [x] Data Review and interpretation [x] Patient assessment and monitoring of vital signs [x] Documentation [x] Medication orders and management Disposition Plan: ICU Total Time Spent with Patient (Minutes): 60 Hospitalist Physical - Constitutional Vitals: Temp Pulse Resp BP Pulse Ox 99 F 80 14 116/65 97 11/07/21 08:00 11/07/21 07:19 11/07/21 04:00 11/07/21 07:19 11/07/21 07:19 General appearance: Present: no acute distress, obese, other (Intubated and Sedated) HEART Score - HEART Score Troponin: Troponin T 1.150 ng/mL (0.00-0.029) H* D 10/29/21 22:34 Results - Labs CBC & Chem 7: 11/07/21 06:30 11/07/21 06:30 Labs: Laboratory Last Values WBC 16.0 K/mm3 (4.5-11.0) H 11/07/21 06:30 RBC 3.06 M/mm3 (3.65-5.03) L 11/07/21 06:30 Hgb 8.2 gm/dl (10.1-14.3) L 11/07/21 06:30 Hct 26.1 % (30.3-42.9) L 11/07/21 06:30 MCV 85 fl (79-97) 11/07/21 06:30 MCH 27 pg (28-32) L 11/07/21 06:30 MCHC 31 % (30-34) 11/07/21 06:30 RDW 16.2 % (13.2-15.2) H 11/07/21 06:30 Plt Count 261 K/mm3 (140-440) 11/07/21 06:30 Lymph % (Auto) 6.2 % (13.4-35.0) L 10/30/21 04:30 [place] % (Auto) 5.5 % (0.0-7.3) 10/30/21 04:30 Eos % (Auto) 0.1 % (0.0-4.3) 10/30/21 04:30 Baso % (Auto) 0.1 % (0.0-1.8) 10/30/21 04:30 Lymph # (Auto) 1.0 K/mm3 (1.2-5.4) L 10/30/21 04:30 [place] # (Auto) 0.9 K/mm3 (0.0-0.8) H 10/30/21 04:30 Eos # (Auto) 0.0 K/mm3 (0.0-0.4) 10/30/21 04:30 Baso # (Auto) 0.0 K/mm3 (0.0-0.1) 10/30/21 04:30 Add Manual Diff Complete 11/07/21 06:30 Total Counted 100 11/07/21 06:30 Seg Neutrophils % 88.1 % (40.0-70.0) H 10/30/21 04:30 Seg Neuts % (Manual) 77.0 % (40.0-70.0) H 11/07/21 06:30 Band Neutrophils % 1.0 % 11/07/21 06:30 Lymphocytes % (Manual) 11.0 % (13.4-35.0) L 11/07/21 06:30 Reactive Lymphs % (Man) 3.0 % 11/07/21 06:30 Monocytes % (Manual) 2.0 % (0.0-7.3) 11/07/21 06:30 Eosinophils % (Manual) 0 % (0.0-4.3) 11/07/21 06:30 Basophils % (Manual) 0 % (0.0-1.8) 11/07/21 06:30 Metamyelocytes % 1.0 % 11/07/21 06:30 Myelocytes % 5.0 % 11/07/21 06:30 Promyelocytes % 0 % 11/07/21 06:30 Blast Cells % 0 % 11/07/21 06:30 Nucleated RBC % 2.0 % (0.0-0.9) H 11/07/21 06:30 Seg Neutrophils # 14.2 K/mm3 (1.8-7.7) H 10/30/21 04:30 Seg Neutrophils # Man 12.3 K/mm3 (1.8-7.7) H 11/07/21 06:30 Band Neutrophils # 0.2 K/mm3 11/07/21 06:30 Lymphocytes # (Manual) 1.8 K/mm3 (1.2-5.4) 11/07/21 06:30 Abs React Lymphs (Man) 0.5 K/mm3 11/07/21 06:30 Monocytes # (Manual) 0.3 K/mm3 (0.0-0.8) 11/07/21 06:30 Eosinophils # (Manual) 0.0 K/mm3 (0.0-0.4) 11/07/21 06:30 Basophils # (Manual) 0.0 K/mm3 (0.0-0.1) 11/07/21 06:30 Metamyelocytes # 0.2 K/mm3 11/07/21 06:30 Myelocytes # 0.8 K/mm3 11/07/21 06:30 Promyelocytes # 0.0 K/mm3 11/07/21 06:30 Blast Cells # 0.0 K/mm3 11/07/21 06:30 WBC Morphology Not Reportable 11/07/21 06:30 Hypersegmented Neuts Not Reportable 11/07/21 06:30 Hyposegmented Neuts Not Reportable 11/07/21 06:30 Hypogranular Neuts Not Reportable 11/07/21 06:30 Smudge Cells Not Reportable 11/07/21 06:30 Toxic Granulation Not Reportable 11/07/21 06:30 Toxic Vacuolation Not Reportable 11/07/21 06:30 Dohle Bodies Not Reportable 11/07/21 06:30 Pelger-Huet Anomaly Not Reportable 11/07/21 06:30 Manny Rods Not Reportable 11/07/21 06:30 Platelet Estimate Consistent w auto 11/07/21 06:30 Clumped Platelets Not Reportable 11/07/21 06:30 Plt Clumps, EDTA Not Reportable 11/07/21 06:30 Large Platelets 1+ 11/07/21 06:30 Giant Platelets Not Reportable 11/07/21 06:30 Platelet Satelliting Not Reportable 11/07/21 06:30 Plt Morphology Comment Not Reportable 11/07/21 06:30 RBC Morphology Not Reportable 11/07/21 06:30 Dimorphic RBCs Not Reportable 11/07/21 06:30 Polychromasia Not Reportable 11/07/21 06:30 Hypochromasia 1+ 11/07/21 06:30 Poikilocytosis Not Reportable 11/07/21 06:30 Anisocytosis Not Reportable 11/07/21 06:30 Microcytosis Not Reportable 11/07/21 06:30 Macrocytosis Not Reportable 11/07/21 06:30 Spherocytes 1+ 11/07/21 06:30 Pappenheimer Bodies Not Reportable 11/07/21 06:30 Sickle Cells Not Reportable 11/07/21 06:30 Target Cells 1+ 11/07/21 06:30 Tear Drop Cells Not Reportable 11/07/21 06:30 Ovalocytes Not Reportable 11/07/21 06:30 Helmet Cells Not Reportable 11/07/21 06:30 [place] Bodies Not Reportable 11/07/21 06:30 [place] Rings Not Reportable 11/07/21 06:30 Mobile Cells Not Reportable 11/07/21 06:30 Bite Cells Not Reportable 11/07/21 06:30 Crenated Cell Not Reportable 11/07/21 06:30 Elliptocytes Not Reportable 11/07/21 06:30 Acanthocytes (Spur) Not Reportable 11/07/21 06:30 Rouleaux Not Reportable 11/07/21 06:30 Hemoglobin C Crystals Not Reportable 11/07/21 06:30 Schistocytes Not Reportable 11/07/21 06:30 Malaria parasites Not Reportable 11/07/21 06:30 Magdy Bodies Not Reportable 11/07/21 06:30 Hem Pathologist Commnt No 11/07/21 06:30 PT 17.2 Sec. (12.2-14.9) H 10/30/21 16:30 INR 1.27 (0.87-1.13) H 10/30/21 16:30 APTT 44.4 Sec. (24.2-36.6) H 10/30/21 16:30 D-Dimer > 47114 ng/mlDDU (0-234) H 10/30/21 Unknown Heparin Anti-Xa Level 0.44 U.I./ml (0.3-0.7) 11/07/21 06:30 ABG pH 7.282 pH Units (7.350-7.450) L 11/06/21 14:28 ABG pCO2 66.8 mm Hg 11/06/21 14:28 ABG pO2 72.6 mm Hg (80.0-90.0) L 11/06/21 14:28 ABG HCO3 30.8 mmol/L (20.0-26.0) H 11/06/21 14:28 ABG O2 Saturation 93.7 % (95.0-99.0) L 11/06/21 14:28 ABG O2 Content 11.2 (0.0-44) 11/06/21 14:28 ABG Base Excess 3.2 mmol/L (-2.0-3.0) H 11/06/21 14:28 ABG Hemoglobin 8.6 gm/dl (12.0-16.0) L 11/06/21 14:28 ABG Carboxyhemoglobin 1.6 % (0.0-5.0) 11/06/21 14:28 ABG Methemoglobin 0.4 % (0.0-1.5) 11/06/21 14:28 Oxyhemoglobin 91.8 % (95.0-99.0) L 11/06/21 14:28 FiO2 34 % 11/06/21 14:28 Sodium 146 mmol/L (137-145) H 11/07/21 06:30 Potassium 3.9 mmol/L (3.6-5.0) 11/07/21 06:30 Chloride 105.8 mmol/L (98-107) 11/07/21 06:30 Carbon Dioxide 30 mmol/L (22-30) 11/07/21 06:30 Anion Gap 14 mmol/L 11/07/21 06:30 BUN 98 mg/dL (7-17) H 11/07/21 06:30 Creatinine 2.8 mg/dL (0.6-1.2) H 11/07/21 06:30 Estimated GFR 20 ml/min 11/07/21 06:30 BUN/Creatinine Ratio 35 % 11/07/21 06:30 Glucose 202 mg/dL (65-100) H 11/07/21 06:30 POC Glucose 172 mg/dL (70-105) H 11/07/21 05:06 Hemoglobin A1c 6.7 % (4-6) H 10/31/21 04:30 Lactic Acid 0.70 mmol/L (0.7-2.0) 10/31/21 15:45 Calcium 8.5 mg/dL (8.4-10.2) 11/07/21 06:30 Phosphorus 4.90 mg/dL (2.5-4.5) H D 11/07/21 06:30 Magnesium 2.90 mg/dL (1.7-2.3) H 11/07/21 06:30 Ferritin 208.4 ng/mL (10.0-200.0) H 10/30/21 Unknown Total Bilirubin < 0.20 mg/dL (0.1-1.2) 11/06/21 02:35 AST 21 units/L (5-40) 11/06/21 02:35 ALT 77 units/L (7-56) H 11/06/21 02:35 Alkaline Phosphatase 84 units/L (35-129) 11/06/21 02:35 Ammonia 31.0 umol/L (25-60) 10/29/21 15:10 Lactate Dehydrogenase 469 units/L (91-180) H 10/30/21 Unknown Troponin T 1.150 ng/mL (0.00-0.029) H* D 10/29/21 22:34 C-Reactive Protein 13.40 mg/dL (0.00-1.30) H 10/30/21 Unknown Total Protein 6.3 g/dL (6.3-8.2) 11/06/21 02:35 Albumin 3.0 g/dL (3.9-5) L 11/06/21 02:35 Albumin/Globulin Ratio 0.9 % 11/06/21 02:35 Triglycerides 68 mg/dL (2-149) 10/29/21 19:40 Cholesterol 98 mg/dL (50-199) 10/29/21 19:40 LDL Cholesterol Direct 43 mg/dL (50-130) L 10/29/21 19:40 HDL Cholesterol 50 mg/dL (40-59) 10/29/21 19:40 Cholesterol/HDL Ratio 1.96 % 10/29/21 19:40 Procalcitonin 61.95 ng/mL (<0.15) 10/30/21 Unknown TSH 3.080 mlU/mL (0.270-4.200) 10/29/21 15:10 Urine Color Straw (Yellow) 10/29/21 18:15 Urine Turbidity Clear (Clear) 10/29/21 18:15 Urine pH 7.0 (5.0-7.0) 10/29/21 18:15 Ur Specific [place] 1.018 (1.003-1.030) 10/29/21 18:15 Urine Protein 100 mg/dl mg/dL (Negative) 10/29/21 18:15 Urine Glucose (UA) 150 mg/dL (Negative) 10/29/21 18:15 Urine Ketones Neg mg/dL (Negative) 10/29/21 18:15 Urine Blood Mod (Negative) 10/29/21 18:15 Urine Nitrite Neg (Negative) 10/29/21 18:15 Urine Bilirubin Neg (Negative) 10/29/21 18:15 Urine Urobilinogen < 2.0 mg/dL (<2.0) 10/29/21 18:15 Ur Leukocyte Esterase Neg (Negative) 10/29/21 18:15 Urine WBC (Auto) 5.0 /HPF (0.0-6.0) 10/29/21 18:15 Urine RBC (Auto) 2.0 /HPF (0.0-6.0) 10/29/21 18:15 U Epithel Cells (Auto) < 1.0 /HPF (0-13.0) 10/29/21 18:15 Urine Mucus Few /HPF 10/29/21 18:15 Urine Eosinophils None seen (None Seen) 11/04/21 Unknown Urine Creatinine 190.9 mg/dL (0.1-20.0) H 11/04/21 Unknown Protein/Creatinin Ratio 0.90 11/04/21 Unknown Urine Sodium 10 mmol/L 11/04/21 Unknown Urine Total Protein 172 mg/dL (5-11.8) H 11/04/21 Unknown Salicylates < 0.3 mg/dL (2.8-20.0) L 10/29/21 15:10 Urine Opiates Screen Negative 10/29/21 18:15 Urine Methadone Screen Negative 10/29/21 18:15 Acetaminophen 5.0 ug/mL (10.0-30.0) L 10/29/21 15:10 Ur Barbiturates Screen Negative 10/29/21 18:15 Ur Phencyclidine Scrn Negative 10/29/21 18:15 Ur Amphetamines Screen Negative 10/29/21 18:15 U Benzodiazepines Scrn Negative 10/29/21 18:15 Urine Cocaine Screen Negative 10/29/21 18:15 U Marijuana (THC) Screen Negative 10/29/21 18:15 Drugs of Abuse Note Disclamer 10/29/21 18:15 Plasma/Serum Alcohol < 0.01 % (0-0.07) 10/29/21 15:10 Coronavirus (PCR) Negative (Negative) 10/30/21 Unknown Blood Type O POSITIVE 10/29/21 15:10 Antibody Screen Negative 10/29/21 15:10 Krishna/IV: Voiding Method Indwelling Catheter Active Medications - Current Medications Current Medications: Generic Name Dose Route Start Last Admin Trade Name Freq PRN Reason Stop Dose Admin Acetaminophen 650 mg 10/29/21 17:04 11/03/21 11:35 Acetaminophen 325 Mg Tab PO 650 mg Q6H PRN Administration Pain, Mild (1-3) Acetaminophen 650 mg 10/29/21 17:04 Acetaminophen 650 Mg Rect Supp NC Q6H PRN Pain MILD(1-3)/Fever >100.5/NIEVES Lipase/Protease/Amylase 1 each 10/31/21 08:56 Lipase 10,500/Protease 25,000/Amylase 43,750 (Units) Dr Cap FEEDTUBE PRN PRN For Clogged Feeding Tube Dextrose 0 ml 11/04/21 13:48 11/05/21 15:29 Dextrose 10% *Hypoglycemia IV 250 ml PRN PRN Administration Hypoglycemia Famotidine 10 mg 11/06/21 10:00 11/07/21 09:02 Famotidine 10 Mg Tab PO 10 mg BID RAMON Administration Fentanyl 50 mcg 11/04/21 14:32 11/06/21 08:36 Fentanyl 100 Mcg/2 Ml Inj IV 50 mcg Q2H PRN Administration Pain, Moderate (4-6) Heparin Sodium (Porcine) 4,300 unit 10/30/21 17:00 Heparin 10,000 Units/10 Ml Vial 40 unit/kg (4300 unit) IV Q6H PRN Anti-Xa Assay < 0.1 units/ml Hydrophilic Ointment 1 applic 10/29/21 14:29 Lip Therapy Vaseline TP Q2HR PRN Dry Lips Fentanyl Citrate 2,000 mcg in 100 mls @ 5.67 mls/hr 10/29/21 15:00 11/07/21 08:52 Fentanyl Drip Premix IV 4 mcg/kg/hr TITR RAMON 22.68 mls/hr Administration Protocol 1 MCG/KG/HR NORepinephrine/NS 8 MG-250 ML 8 mg in 250 mls @ 3.75 mls/hr 10/29/21 15:00 11/04/21 07:00 Norepinephrine/Ns 8 Mg-250 Ml (Double Conc) IV 0 mcg/min TITRATE RAMON 0 mls/hr Titration Protocol 2 MCG/MIN Heparin Sodium/Sodium Chloride 25,000 unit in 500 mls @ 30 mls/hr 10/30/21 17:00 11/07/21 08:38 Heparin/ 0.45% Nacl-25,000 Unit/500 Ml IV 1,400 units/hr TITR RAMON 28 mls/hr Titration Protocol 1,500 UNITS/HR Amiodarone HCl 900 mg/ 500 mls @ 33.333 mls/hr 11/03/21 11:00 11/05/21 08:29 Dextrose IV 0.5 mg/min DIRECT RAMON 16.667 mls/hr Administration Protocol 1 MG/MIN Dextrose 1,000 mls @ 50 mls/hr 11/07/21 11:00 D5w IV 11/07/21 20:59 DIRECT RAMON Insulin Glargine 10 units 11/05/21 22:00 11/06/21 23:23 Insulin Glargine 100 Units/Ml SUB-Q 10 units QHS [facility] Administration Insulin Human Lispro 0 unit 10/30/21 16:00 11/07/21 06:24 Insulin Lispro 100 Unit/Ml SUB-Q 3 unit Q6HR [facility] Administration Protocol Metoprolol Tartrate 50 mg 11/07/21 12:00 Metoprolol Tartrate 50 Mg Tab FEEDTUBE Q6H [facility] Multi-Ingred Cream/Lotion/Oil/Oint 1 applic 10/29/21 14:29 11/06/21 09:25 Mineral Oil/Petrolatum, White Ophth Oint 3.5 Gm OU 1 applic Q4HR PRN Administration Dry Eye(s) Quetiapine Fumarate 100 mg 11/05/21 22:00 11/06/21 23:24 Quetiapine 100 Mg Tab PO 100 mg QHS [facility] Administration Quetiapine Fumarate 75 mg 11/06/21 10:00 11/07/21 09:02 Quetiapine 25 Mg Tab PO 50 mg QAM RAMON Administration Senna/Docusate Sodium 1 tab 10/29/21 15:00 11/07/21 09:02 Sennosides/Docusate Sodium 8.6/50 Mg Tab FEEDTUBE 1 tab BID RAMON Administration Simple Syrup 15 ml 10/31/21 08:56 Simple Syrup 15 Ml FEEDTUBE PRN PRN Hypoglycemia Simple Syrup 30 ml 10/31/21 08:56 Simple Syrup 15 Ml FEEDTUBE PRN PRN Hypoglycemia Sodium Bicarbonate 325 mg 10/31/21 08:56 Sodium Bicarbonate 325 Mg Tab FEEDTUBE PRN PRN For Clogged Feeding Tube Sodium Chloride 10 ml 10/29/21 22:00 11/07/21 09:03 Sodium Chloride 0.9% 10 Ml Flush Syringe IV 10 ml BID RAMON Administration Sodium Chloride 10 ml 10/29/21 17:04 Sodium Chloride 0.9% 10 Ml Flush Syringe IV PRN PRN LINE FLUSH Nutrition/Malnutrition Assess - Dietary Evaluation Nutrition/Malnutrition Findings: Nutrition Notes Start: 10/30/21 09:50 Freq: Status: Active Protocol: Document 11/06/21 11:11 YOVANY (Rec: 11/06/21 11:21 YOVANY [id number]) Nutrition Notes Initial or Follow up Reassessment Current Diagnosis Sepsis,Heart Failure, Respiratory Failure Other Pertinent Diagnosis s/p cardiac arrest, ARF sec to ischemic acute tubular necrosis Current Diet TF - Vital HP at 60ml/hr Labs/Tests K 5.2 BUN 85 Cr 2.3 BG 236 Mg 2.8 Pertinent Medications Cardizem gtt Height 5 ft 10 in Weight 106.7 kg [place] Body Weight (kg) 68.18 BMI 33.7 Weight Status Obese Subjective/Other Information Phone call received for RN; pt with ARF and hyperkalemia. Request to change TF formula to Nepro. Pt remains on vent support. Per nephrology, no indication for renal replacement therapy at this time. Burn Absent Trauma Absent #1 Nutrition Diagnosis Inadequate oral intake Diagnosis Progress(for reassessment Continues documentation) Is patient on ventilator? Yes Is Patient Ambulatory and/or Out of Bed No REE-([facility]-confined to bed) 2022.848 Kcal/Kg value to use for calculation 15 Approximate Energy Requirements Using 1601 kcal/Kg Calculation Used for Recommendations Kcal/kg Additional Notes Pro needs 0.8-1.2g/kg adjBW: 70-105g/day Fluids: 1 ml/kcal Nutrition Intervention Nutrition Support: Change TF formula to Nepro at 37ml/hr with 160ml water flush q4h. Kcal 1,598 Protein (gm) 72 Carbohydrates (gm) 143 Fat (gm) 85 Fluid (mL) 646 Fiber (gm) 11 Goal #1 TF tolerance Goal #2 TF to meet 65-70% energy and at least 75% pro needs Follow-Up By: 11/08/21 Additional Comments F/U: TF formula change/ tolerance, renal function, vent status
[2021-11-07] MEDS ORDERED: DEXTROSE 5% IN WATER 1,000 ML IV SCH (11:00)
--- NOTE | 2021-11-07 11:28 | Progress Note ---
Assessment and Plan Acute hypoxemic respiratory failure on MVS Cardiac arrest with ROSC Acute DVT Right pneumothorax s/p pleural drain placement Shock (septic +/- cardiogenic) Possible aspiration pneumonia SIERRA Altered mental status/acute encephalopathy Elevated serum transaminases, likely ischemic hepatitis Metabolic acidosis Obesity Leukocytosis Lactic acidosis Get CXR in am Conservative fluid management as tolerated by hemodynamics, renal function Increased free water flushes to treat hypernatremia Follow up EEG report when available - vasopressors for target MAP > 65 mmHg - continue full anticoagulation with IV Heparin re: DVT - continue Daily SAT and SBT assessment as tolerated - continue to wean supplemental oxygen for target O2 sat's > 90% acutely - VAP bundle addressed - continue lung protective strategies - continue bronchodilators with pulmonary hygiene per RT - wean per pulmonary driven protocols otherwise - continue accuchecks with glycemic control per SSI (While critically ill target blood glucose of 140-180 mg/dL; avoid hypoglycemia) - sedation prn for target RASS 0 to -1 - avoid nephrotoxins, renally dose all medications - continue to avoid benzodiazepines , reduce the possibility of delirium - Antibiotics per ID recommendations - prn analgesia per CPOT score - Maintenance of sleep-wake cycle, avoid delirium - continue enteral nutritional support at goal rate as tolerated - G.I. & VTE prophylaxis - PT/OT/ROM exercises - continue mobility protocols for pressure ulcer prophylaxis - Monitor hemodynamics closely - continue other care per attending / other consultants - discharge planning ongoing concurrently COVID SPECIFIC INTERVENTIONS - COVID-19 PCR negative CONDITION: CRITICAL PROGNOSIS: GUARDED CODE STATUS: FULL CODE The high probability of a clinically significant, sudden or life-threatening deterioration of the [respiratory, cardiovascular, renal & neurologic] system(s) required my full and direct attention, intervention and personal management. The aggregate critical care time was [34] minutes without overlap. Time includes spent on; [x] Data Review and interpretation [x] Patient assessment and monitoring of vital signs [x] Documentation [x] Medication orders and management Subjective Date of service: 11/07/21 Principal diagnosis: AHRF; Cardiac arrest; R. pneumothorax; pneumonia; AMS; DVT's; SIERRA; Obesity Interval history: Patient is seen today for: Acute hypoxemic respiratory failure; Cardiac arrest with ROSC; Right pneumothorax; pneumonia; AMS; bilateral DVT's; SIERRA; Obesity Seen and examined at bedside; 24hour events reviewed; nursing and respiratory care staff consulted; no adverse overnight events reported to me; remains on MVS; no emesis or overt aspiration; secretions moderate; making urine; no adverse overnight events, getting EEG done Objective Vital Signs - 12hr 11/06/21 11/07/21 11/07/21 23:44 00:00 03:09 Temperature 99.5 F 99.5 F Pulse Rate 79 Pulse Rate [ 79 From Monitor] Respiratory 14 Rate Blood Pressure O2 Sat by Pulse 95 Oximetry 11/07/21 11/07/21 11/07/21 04:00 04:40 06:24 Temperature Pulse Rate 107 H 79 103 H Pulse Rate [ 107 H From Monitor] Respiratory 14 Rate Blood Pressure 121/67 143/76 O2 Sat by Pulse 97 96 Oximetry 11/07/21 11/07/21 11/07/21 06:25 07:19 08:00 Temperature 99 F Pulse Rate 102 H 80 Pulse Rate [ 107 H From Monitor] Respiratory 14 Rate Blood Pressure 107/61 116/65 O2 Sat by Pulse 97 97 Oximetry Constitutional: appears uncomfortable, other (elderly obese female with mildly increased respiratory effort at rest) Eyes: non-icteric, other (+ mild periorbital phymosis) ENT: oropharynx moist, oropharyngeal exudate pre (moderate), other (ETT 23 cm KRYSTAL) Neck: supple, no lymphadenopathy, no JVD Effort: mildly labored Ascultation: Bilateral: diminished breath sounds, rhonchi Percussion: Bilateral: not dull Cardiovascular: irregular rhythm, other (no R/M) Gastrointestinal: normoactive bowel sounds Integumentary: normal Extremities: no cyanosis, pulses normal, no ischemia or petechiae, edema Neurologic: non-focal exam (grossly), pupils equal and round, motor strength normal and (weak), unable to assess Psychiatric: other (unable to assess re: AMS) CBC and BMP: 11/07/21 06:30 11/07/21 06:30 ABG, PT/INR, D-dimer: ABG ABG pH 7.282 pH Units (7.350-7.450) L 11/06/21 14:28 ABG pCO2 66.8 mm Hg 11/06/21 14:28 ABG pO2 72.6 mm Hg (80.0-90.0) L 11/06/21 14:28 ABG O2 Saturation 93.7 % (95.0-99.0) L 11/06/21 14:28 PT/INR, D-dimer PT 17.2 Sec. (12.2-14.9) H 10/30/21 16:30 INR 1.27 (0.87-1.13) H 10/30/21 16:30 D-Dimer > 83770 ng/mlDDU (0-234) H 10/30/21 Unknown Abnormal lab findings: Abnormal Labs 10/29/21 10/29/21 10/29/21 15:10 15:10 15:10 WBC 27.8 H RBC Hgb Hct MCH 27 L RDW Plt Count Lymph % (Auto) Lymph # (Auto) [place] # (Auto) Seg Neutrophils % Seg Neuts % (Manual) 78.0 H Lymphocytes % (Manual) 10.0 L Nucleated RBC % Seg Neutrophils # Seg Neutrophils # Man 21.7 H Monocytes # (Manual) 1.4 H PT INR APTT D-Dimer Heparin Anti-Xa Level ABG pH ABG pO2 ABG HCO3 ABG O2 Saturation ABG Base Excess ABG Hemoglobin Oxyhemoglobin Sodium Potassium Chloride Carbon Dioxide BUN Creatinine Glucose POC Glucose Hemoglobin A1c Lactic Acid 6.80 H* Calcium Phosphorus Magnesium Ferritin AST ALT Alkaline Phosphatase Lactate Dehydrogenase Troponin T 0.089 H C-Reactive Protein Total Protein Albumin LDL Cholesterol Direct Urine Creatinine Urine Total Protein Salicylates Acetaminophen 10/29/21 10/29/21 10/29/21 15:10 15:10 15:10 WBC RBC Hgb Hct MCH RDW Plt Count Lymph % (Auto) Lymph # (Auto) [place] # (Auto) Seg Neutrophils % Seg Neuts % (Manual) Lymphocytes % (Manual) Nucleated RBC % Seg Neutrophils # Seg Neutrophils # Man Monocytes # (Manual) PT INR APTT D-Dimer Heparin Anti-Xa Level ABG pH ABG pO2 ABG HCO3 ABG O2 Saturation ABG Base Excess ABG Hemoglobin Oxyhemoglobin Sodium 136 L Potassium 2.8 L* Chloride 93.4 L Carbon Dioxide 20 L BUN Creatinine Glucose 330 H POC Glucose Hemoglobin A1c Lactic Acid Calcium Phosphorus Magnesium Ferritin AST 1013 H ALT 1289 H Alkaline Phosphatase 246 H Lactate Dehydrogenase Troponin T C-Reactive Protein Total Protein Albumin LDL Cholesterol Direct Urine Creatinine Urine Total Protein Salicylates < 0.3 L Acetaminophen 5.0 L 10/29/21 10/29/21 10/29/21 15:11 16:01 19:29 WBC RBC Hgb Hct MCH RDW Plt Count Lymph % (Auto) Lymph # (Auto) [place] # (Auto) Seg Neutrophils % Seg Neuts % (Manual) Lymphocytes % (Manual) Nucleated RBC % Seg Neutrophils # Seg Neutrophils # Man Monocytes # (Manual) PT INR APTT D-Dimer Heparin Anti-Xa Level ABG pH 7.307 L ABG pO2 64.1 L ABG HCO3 ABG O2 Saturation 90.8 L ABG Base Excess -2.9 L ABG Hemoglobin Oxyhemoglobin 89.3 L Sodium Potassium Chloride Carbon Dioxide BUN Creatinine Glucose POC Glucose Hemoglobin A1c Lactic Acid 2.60 H* Calcium Phosphorus Magnesium 2.90 H Ferritin AST ALT Alkaline Phosphatase Lactate Dehydrogenase Troponin T C-Reactive Protein Total Protein Albumin LDL Cholesterol Direct Urine Creatinine Urine Total Protein Salicylates Acetaminophen 10/29/21 10/29/21 10/30/21 19:40 22:34 04:30 WBC 16.2 H RBC Hgb Hct MCH 26 L RDW 15.5 H Plt Count Lymph % (Auto) 6.2 L Lymph # (Auto) 1.0 L [place] # (Auto) 0.9 H Seg Neutrophils % 88.1 H Seg Neuts % (Manual) Lymphocytes % (Manual) Nucleated RBC % Seg Neutrophils # 14.2 H Seg Neutrophils # Man Monocytes # (Manual) PT INR APTT D-Dimer Heparin Anti-Xa Level ABG pH ABG pO2 ABG HCO3 ABG O2 Saturation ABG Base Excess ABG Hemoglobin Oxyhemoglobin Sodium Potassium Chloride Carbon Dioxide BUN Creatinine Glucose POC Glucose Hemoglobin A1c Lactic Acid Calcium Phosphorus Magnesium Ferritin AST ALT Alkaline Phosphatase Lactate Dehydrogenase Troponin T 1.950 H* D 1.150 H* D C-Reactive Protein Total Protein Albumin LDL Cholesterol Direct 43 L Urine Creatinine Urine Total Protein Salicylates Acetaminophen 10/30/21 10/30/21 10/30/21 04:30 04:35 05:45 WBC RBC Hgb Hct MCH RDW Plt Count Lymph % (Auto) Lymph # (Auto) [place] # (Auto) Seg Neutrophils % Seg Neuts % (Manual) Lymphocytes % (Manual) Nucleated RBC % Seg Neutrophils # Seg Neutrophils # Man Monocytes # (Manual) PT INR APTT D-Dimer Heparin Anti-Xa Level ABG pH ABG pO2 69.5 L ABG HCO3 ABG O2 Saturation ABG Base Excess -2.7 L ABG Hemoglobin Oxyhemoglobin 94.7 L Sodium Potassium Chloride Carbon Dioxide 21 L BUN Creatinine Glucose 159 H POC Glucose 151 H Hemoglobin A1c Lactic Acid Calcium 7.9 L D Phosphorus Magnesium Ferritin AST 461 H ALT 686 H Alkaline Phosphatase 130 H Lactate Dehydrogenase Troponin T C-Reactive Protein Total Protein 5.6 L D Albumin 3.2 L LDL Cholesterol Direct Urine Creatinine Urine Total Protein Salicylates Acetaminophen 10/30/21 10/30/21 10/30/21 11:24 15:59 16:30 WBC RBC Hgb Hct MCH RDW Plt Count Lymph % (Auto) Lymph # (Auto) [place] # (Auto) Seg Neutrophils % Seg Neuts % (Manual) Lymphocytes % (Manual) Nucleated RBC % Seg Neutrophils # Seg Neutrophils # Man Monocytes # (Manual) PT 17.2 H INR 1.27 H APTT 44.4 H D-Dimer Heparin Anti-Xa Level ABG pH ABG pO2 ABG HCO3 ABG O2 Saturation ABG Base Excess ABG Hemoglobin Oxyhemoglobin Sodium Potassium Chloride Carbon Dioxide BUN Creatinine Glucose POC Glucose 153 H 109 H Hemoglobin A1c Lactic Acid Calcium Phosphorus Magnesium Ferritin AST ALT Alkaline Phosphatase Lactate Dehydrogenase Troponin T C-Reactive Protein Total Protein Albumin LDL Cholesterol Direct Urine Creatinine Urine Total Protein Salicylates Acetaminophen 10/30/21 10/30/21 10/30/21 23:00 Unknown Unknown WBC RBC Hgb Hct MCH RDW Plt Count Lymph % (Auto) Lymph # (Auto) [place] # (Auto) Seg Neutrophils % Seg Neuts % (Manual) Lymphocytes % (Manual) Nucleated RBC % Seg Neutrophils # Seg Neutrophils # Man Monocytes # (Manual) PT INR APTT D-Dimer > 95181 H Heparin Anti-Xa Level 0.82 H ABG pH ABG pO2 ABG HCO3 ABG O2 Saturation ABG Base Excess ABG Hemoglobin Oxyhemoglobin Sodium Potassium Chloride Carbon Dioxide BUN Creatinine Glucose POC Glucose Hemoglobin A1c Lactic Acid Calcium Phosphorus Magnesium Ferritin 208.4 H AST ALT Alkaline Phosphatase Lactate Dehydrogenase Troponin T C-Reactive Protein Total Protein Albumin LDL Cholesterol Direct Urine Creatinine Urine Total Protein Salicylates Acetaminophen 10/30/21 10/31/21 10/31/21 Unknown 04:30 04:30 WBC 14.4 H RBC Hgb Hct MCH 26 L RDW Plt Count Lymph % (Auto) Lymph # (Auto) [place] # (Auto) Seg Neutrophils % Seg Neuts % (Manual) Lymphocytes % (Manual) Nucleated RBC % Seg Neutrophils # Seg Neutrophils # Man Monocytes # (Manual) PT INR APTT D-Dimer Heparin Anti-Xa Level ABG pH ABG pO2 ABG HCO3 ABG O2 Saturation ABG Base Excess ABG Hemoglobin Oxyhemoglobin Sodium Potassium 3.5 L Chloride 107.5 H Carbon Dioxide 20 L BUN 28 H Creatinine 1.7 H Glucose 113 H POC Glucose Hemoglobin A1c Lactic Acid Calcium 7.9 L Phosphorus Magnesium Ferritin AST ALT Alkaline Phosphatase Lactate Dehydrogenase 469 H Troponin T C-Reactive Protein 13.40 H Total Protein Albumin LDL Cholesterol Direct Urine Creatinine Urine Total Protein Salicylates Acetaminophen 10/31/21 10/31/21 10/31/21 04:30 05:11 15:30 WBC RBC Hgb Hct MCH RDW Plt Count Lymph % (Auto) Lymph # (Auto) [place] # (Auto) Seg Neutrophils % Seg Neuts % (Manual) Lymphocytes % (Manual) Nucleated RBC % Seg Neutrophils # Seg Neutrophils # Man Monocytes # (Manual) PT INR APTT D-Dimer Heparin Anti-Xa Level ABG pH 7.222 L ABG pO2 61.5 L ABG HCO3 ABG O2 Saturation 86.2 L ABG Base Excess -6.3 L ABG Hemoglobin 11.2 L Oxyhemoglobin 84.5 L Sodium Potassium Chloride Carbon Dioxide BUN Creatinine Glucose POC Glucose 106 H Hemoglobin A1c 6.7 H Lactic Acid Calcium Phosphorus Magnesium Ferritin AST ALT Alkaline Phosphatase Lactate Dehydrogenase Troponin T C-Reactive Protein Total Protein Albumin LDL Cholesterol Direct Urine Creatinine Urine Total Protein Salicylates Acetaminophen 10/31/21 10/31/21 10/31/21 16:07 16:35 17:45 WBC RBC Hgb Hct MCH RDW Plt Count Lymph % (Auto) Lymph # (Auto) [place] # (Auto) Seg Neutrophils % Seg Neuts % (Manual) Lymphocytes % (Manual) Nucleated RBC % Seg Neutrophils # Seg Neutrophils # Man Monocytes # (Manual) PT INR APTT D-Dimer Heparin Anti-Xa Level ABG pH 7.267 L ABG pO2 58.3 L ABG HCO3 ABG O2 Saturation 88.3 L ABG Base Excess -5.9 L ABG Hemoglobin 10.1 L Oxyhemoglobin 86.5 L Sodium Potassium Chloride Carbon Dioxide BUN Creatinine Glucose POC Glucose 115 H Hemoglobin A1c Lactic Acid Calcium Phosphorus Magnesium Ferritin AST ALT Alkaline Phosphatase Lactate Dehydrogenase Troponin T C-Reactive Protein Total Protein Albumin LDL Cholesterol Direct Urine Creatinine 383.6 H Urine Total Protein Salicylates Acetaminophen 11/01/21 11/01/21 11/01/21 00:06 05:08 06:00 WBC 12.6 H RBC 3.43 L Hgb 8.9 L Hct 28.7 L MCH 26 L RDW 15.7 H Plt Count 130 L Lymph % (Auto) Lymph # (Auto) [place] # (Auto) Seg Neutrophils % Seg Neuts % (Manual) Lymphocytes % (Manual) Nucleated RBC % Seg Neutrophils # Seg Neutrophils # Man Monocytes # (Manual) PT INR APTT D-Dimer Heparin Anti-Xa Level ABG pH ABG pO2 ABG HCO3 ABG O2 Saturation ABG Base Excess ABG Hemoglobin Oxyhemoglobin Sodium Potassium Chloride Carbon Dioxide BUN Creatinine Glucose POC Glucose 114 H 120 H Hemoglobin A1c Lactic Acid Calcium Phosphorus Magnesium Ferritin AST ALT Alkaline Phosphatase Lactate Dehydrogenase Troponin T C-Reactive Protein Total Protein Albumin LDL Cholesterol Direct Urine Creatinine Urine Total Protein Salicylates Acetaminophen 11/01/21 11/01/21 11/01/21 06:00 11:43 14:00 WBC RBC Hgb Hct MCH RDW Plt Count Lymph % (Auto) Lymph # (Auto) [place] # (Auto) Seg Neutrophils % Seg Neuts % (Manual) Lymphocytes % (Manual) Nucleated RBC % Seg Neutrophils # Seg Neutrophils # Man Monocytes # (Manual) PT INR APTT D-Dimer Heparin Anti-Xa Level ABG pH 7.349 L ABG pO2 75.6 L ABG HCO3 ABG O2 Saturation ABG Base Excess -3.9 L ABG Hemoglobin 9.8 L Oxyhemoglobin 93.5 L Sodium Potassium Chloride 114.1 H Carbon Dioxide 20 L BUN 33 H Creatinine Glucose 131 H POC Glucose 151 H Hemoglobin A1c Lactic Acid Calcium 7.7 L Phosphorus Magnesium Ferritin AST 79 H ALT 259 H Alkaline Phosphatase Lactate Dehydrogenase Troponin T C-Reactive Protein Total Protein 5.5 L Albumin 2.7 L LDL Cholesterol Direct Urine Creatinine Urine Total Protein Salicylates Acetaminophen 11/01/21 11/01/21 11/02/21 16:45 22:55 05:12 WBC RBC Hgb Hct MCH RDW Plt Count Lymph % (Auto) Lymph # (Auto) [place] # (Auto) Seg Neutrophils % Seg Neuts % (Manual) Lymphocytes % (Manual) Nucleated RBC % Seg Neutrophils # Seg Neutrophils # Man Monocytes # (Manual) PT INR APTT D-Dimer Heparin Anti-Xa Level ABG pH ABG pO2 ABG HCO3 ABG O2 Saturation ABG Base Excess ABG Hemoglobin Oxyhemoglobin Sodium Potassium Chloride Carbon Dioxide BUN Creatinine Glucose POC Glucose 119 H 129 H 140 H Hemoglobin A1c Lactic Acid Calcium Phosphorus Magnesium Ferritin AST ALT Alkaline Phosphatase Lactate Dehydrogenase Troponin T C-Reactive Protein Total Protein Albumin LDL Cholesterol Direct Urine Creatinine Urine Total Protein Salicylates Acetaminophen 11/02/21 11/02/21 11/02/21 05:35 05:35 09:35 WBC 13.5 H RBC 3.60 L Hgb 9.7 L Hct MCH 27 L RDW 15.7 H Plt Count Lymph % (Auto) Lymph # (Auto) [place] # (Auto) Seg Neutrophils % Seg Neuts % (Manual) Lymphocytes % (Manual) Nucleated RBC % Seg Neutrophils # Seg Neutrophils # Man Monocytes # (Manual) PT INR APTT D-Dimer Heparin Anti-Xa Level ABG pH 7.208 L ABG pO2 75.9 L ABG HCO3 ABG O2 Saturation 93.6 L ABG Base Excess -4.3 L ABG Hemoglobin 9.1 L Oxyhemoglobin 91.6 L Sodium Potassium 5.2 H D Chloride 112.6 H Carbon Dioxide BUN 32 H Creatinine Glucose 152 H POC Glucose Hemoglobin A1c Lactic Acid Calcium 8.2 L Phosphorus Magnesium 2.70 H Ferritin AST ALT Alkaline Phosphatase Lactate Dehydrogenase Troponin T C-Reactive Protein Total Protein Albumin LDL Cholesterol Direct Urine Creatinine Urine Total Protein Salicylates Acetaminophen 11/02/21 11/02/21 11/02/21 11:44 17:13 23:43 WBC RBC Hgb Hct MCH RDW Plt Count Lymph % (Auto) Lymph # (Auto) [place] # (Auto) Seg Neutrophils % Seg Neuts % (Manual) Lymphocytes % (Manual) Nucleated RBC % Seg Neutrophils # Seg Neutrophils # Man Monocytes # (Manual) PT INR APTT D-Dimer Heparin Anti-Xa Level ABG pH ABG pO2 ABG HCO3 ABG O2 Saturation ABG Base Excess ABG Hemoglobin Oxyhemoglobin Sodium Potassium Chloride Carbon Dioxide BUN Creatinine Glucose POC Glucose 173 H 148 H 137 H Hemoglobin A1c Lactic Acid Calcium Phosphorus Magnesium Ferritin AST ALT Alkaline Phosphatase Lactate Dehydrogenase Troponin T C-Reactive Protein Total Protein Albumin LDL Cholesterol Direct Urine Creatinine Urine Total Protein Salicylates Acetaminophen 11/03/21 11/03/21 11/03/21 04:59 06:00 06:00 WBC RBC 3.43 L Hgb 9.1 L Hct 29.0 L MCH 26 L RDW 16.4 H Plt Count Lymph % (Auto) Lymph # (Auto) [place] # (Auto) Seg Neutrophils % Seg Neuts % (Manual) Lymphocytes % (Manual) Nucleated RBC % Seg Neutrophils # Seg Neutrophils # Man Monocytes # (Manual) PT INR APTT D-Dimer Heparin Anti-Xa Level 0.17 L ABG pH ABG pO2 ABG HCO3 ABG O2 Saturation ABG Base Excess ABG Hemoglobin Oxyhemoglobin Sodium Potassium Chloride Carbon Dioxide BUN Creatinine Glucose POC Glucose 167 H Hemoglobin A1c Lactic Acid Calcium Phosphorus Magnesium Ferritin AST ALT Alkaline Phosphatase Lactate Dehydrogenase Troponin T C-Reactive Protein Total Protein Albumin LDL Cholesterol Direct Urine Creatinine Urine Total Protein Salicylates Acetaminophen 11/03/21 11/03/21 11/03/21 06:00 09:20 11:58 WBC RBC Hgb Hct MCH RDW Plt Count Lymph % (Auto) Lymph # (Auto) [place] # (Auto) Seg Neutrophils % Seg Neuts % (Manual) Lymphocytes % (Manual) Nucleated RBC % Seg Neutrophils # Seg Neutrophils # Man Monocytes # (Manual) PT INR APTT D-Dimer Heparin Anti-Xa Level ABG pH 7.274 L ABG pO2 75.6 L ABG HCO3 ABG O2 Saturation 94.9 L ABG Base Excess -2.5 L ABG Hemoglobin 9.3 L Oxyhemoglobin 92.9 L Sodium 149 H Potassium Chloride 117.5 H Carbon Dioxide BUN 32 H Creatinine Glucose 173 H POC Glucose 192 H Hemoglobin A1c Lactic Acid Calcium 8.1 L Phosphorus Magnesium Ferritin AST ALT Alkaline Phosphatase Lactate Dehydrogenase Troponin T C-Reactive Protein Total Protein Albumin LDL Cholesterol Direct Urine Creatinine Urine Total Protein Salicylates Acetaminophen 11/03/21 11/03/21 11/04/21 18:22 Unknown 00:09 WBC RBC Hgb Hct MCH RDW Plt Count Lymph % (Auto) Lymph # (Auto) [place] # (Auto) Seg Neutrophils % Seg Neuts % (Manual) Lymphocytes % (Manual) Nucleated RBC % Seg Neutrophils # Seg Neutrophils # Man Monocytes # (Manual) PT INR APTT D-Dimer Heparin Anti-Xa Level 0.29 L ABG pH ABG pO2 ABG HCO3 ABG O2 Saturation ABG Base Excess ABG Hemoglobin Oxyhemoglobin Sodium Potassium Chloride Carbon Dioxide BUN Creatinine Glucose POC Glucose 178 H 221 H Hemoglobin A1c Lactic Acid Calcium Phosphorus Magnesium Ferritin AST ALT Alkaline Phosphatase Lactate Dehydrogenase Troponin T C-Reactive Protein Total Protein Albumin LDL Cholesterol Direct Urine Creatinine Urine Total Protein Salicylates Acetaminophen 11/04/21 11/04/21 11/04/21 05:09 09:40 09:40 WBC 16.8 H RBC Hgb Hct MCH 27 L RDW 16.5 H Plt Count Lymph % (Auto) Lymph # (Auto) [place] # (Auto) Seg Neutrophils % Seg Neuts % (Manual) Lymphocytes % (Manual) Nucleated RBC % Seg Neutrophils # Seg Neutrophils # Man Monocytes # (Manual) PT INR APTT D-Dimer Heparin Anti-Xa Level ABG pH ABG pO2 ABG HCO3 ABG O2 Saturation ABG Base Excess ABG Hemoglobin Oxyhemoglobin Sodium Potassium 5.9 H Chloride 108.5 H Carbon Dioxide BUN 54 H Creatinine 1.8 H Glucose 198 H POC Glucose 182 H Hemoglobin A1c Lactic Acid Calcium Phosphorus Magnesium 3.00 H Ferritin AST ALT Alkaline Phosphatase Lactate Dehydrogenase Troponin T C-Reactive Protein Total Protein Albumin LDL Cholesterol Direct Urine Creatinine Urine Total Protein Salicylates Acetaminophen 11/04/21 11/04/21 11/04/21 12:13 13:34 14:05 WBC RBC Hgb Hct MCH RDW Plt Count Lymph % (Auto) Lymph # (Auto) [place] # (Auto) Seg Neutrophils % Seg Neuts % (Manual) Lymphocytes % (Manual) Nucleated RBC % Seg Neutrophils # Seg Neutrophils # Man Monocytes # (Manual) PT INR APTT D-Dimer Heparin Anti-Xa Level ABG pH 7.223 L ABG pO2 71.3 L ABG HCO3 ABG O2 Saturation 92.8 L ABG Base Excess ABG Hemoglobin 8.2 L Oxyhemoglobin 91.0 L Sodium Potassium Chloride Carbon Dioxide BUN Creatinine Glucose POC Glucose 184 H Hemoglobin A1c Lactic Acid Calcium Phosphorus Magnesium Ferritin AST ALT Alkaline Phosphatase Lactate Dehydrogenase Troponin T C-Reactive Protein Total Protein Albumin LDL Cholesterol Direct Urine Creatinine 184.6 H Urine Total Protein Salicylates Acetaminophen 11/04/21 11/04/21 11/05/21 18:02 Unknown 00:07 WBC RBC Hgb Hct MCH RDW Plt Count Lymph % (Auto) Lymph # (Auto) [place] # (Auto) Seg Neutrophils % Seg Neuts % (Manual) Lymphocytes % (Manual) Nucleated RBC % Seg Neutrophils # Seg Neutrophils # Man Monocytes # (Manual) PT INR APTT D-Dimer Heparin Anti-Xa Level ABG pH ABG pO2 ABG HCO3 ABG O2 Saturation ABG Base Excess ABG Hemoglobin Oxyhemoglobin Sodium Potassium Chloride Carbon Dioxide BUN Creatinine Glucose POC Glucose 262 H 259 H Hemoglobin A1c Lactic Acid Calcium Phosphorus Magnesium Ferritin AST ALT Alkaline Phosphatase Lactate Dehydrogenase Troponin T C-Reactive Protein Total Protein Albumin LDL Cholesterol Direct Urine Creatinine 190.9 H Urine Total Protein 172 H Salicylates Acetaminophen 11/05/21 11/05/21 11/05/21 04:20 04:20 05:30 WBC 17.9 H RBC 3.64 L Hgb 9.7 L Hct MCH 27 L RDW 16.4 H Plt Count Lymph % (Auto) Lymph # (Auto) [place] # (Auto) Seg Neutrophils % Seg Neuts % (Manual) Lymphocytes % (Manual) Nucleated RBC % Seg Neutrophils # Seg Neutrophils # Man Monocytes # (Manual) PT INR APTT D-Dimer Heparin Anti-Xa Level ABG pH ABG pO2 ABG HCO3 ABG O2 Saturation ABG Base Excess ABG Hemoglobin Oxyhemoglobin Sodium Potassium 5.6 H Chloride 108.4 H Carbon Dioxide BUN 71 H Creatinine 1.9 H Glucose 270 H POC Glucose 283 H Hemoglobin A1c Lactic Acid Calcium Phosphorus Magnesium Ferritin AST ALT Alkaline Phosphatase Lactate Dehydrogenase Troponin T C-Reactive Protein Total Protein Albumin LDL Cholesterol Direct Urine Creatinine Urine Total Protein Salicylates Acetaminophen 11/05/21 11/05/21 11/05/21 10:05 12:10 15:29 WBC RBC Hgb Hct MCH RDW Plt Count Lymph % (Auto) Lymph # (Auto) [place] # (Auto) Seg Neutrophils % Seg Neuts % (Manual) Lymphocytes % (Manual) Nucleated RBC % Seg Neutrophils # Seg Neutrophils # Man Monocytes # (Manual) PT INR APTT D-Dimer Heparin Anti-Xa Level ABG pH 7.248 L ABG pO2 73.7 L ABG HCO3 26.2 H ABG O2 Saturation 93.1 L ABG Base Excess ABG Hemoglobin 8.9 L Oxyhemoglobin 91.4 L Sodium Potassium Chloride Carbon Dioxide BUN Creatinine Glucose POC Glucose 225 H 199 H Hemoglobin A1c Lactic Acid Calcium Phosphorus Magnesium Ferritin AST ALT Alkaline Phosphatase Lactate Dehydrogenase Troponin T C-Reactive Protein Total Protein Albumin LDL Cholesterol Direct Urine Creatinine Urine Total Protein Salicylates Acetaminophen 11/05/21 11/05/21 11/05/21 15:51 17:32 17:40 WBC RBC Hgb Hct MCH RDW Plt Count Lymph % (Auto) Lymph # (Auto) [place] # (Auto) Seg Neutrophils % Seg Neuts % (Manual) Lymphocytes % (Manual) Nucleated RBC % Seg Neutrophils # Seg Neutrophils # Man Monocytes # (Manual) PT INR APTT D-Dimer Heparin Anti-Xa Level ABG pH ABG pO2 ABG HCO3 ABG O2 Saturation ABG Base Excess ABG Hemoglobin Oxyhemoglobin Sodium Potassium 5.2 H Chloride 107.8 H Carbon Dioxide BUN 79 H Creatinine 1.9 H Glucose 204 H POC Glucose 278 H 197 H Hemoglobin A1c Lactic Acid Calcium Phosphorus Magnesium Ferritin AST ALT Alkaline Phosphatase Lactate Dehydrogenase Troponin T C-Reactive Protein Total Protein Albumin LDL Cholesterol Direct Urine Creatinine Urine Total Protein Salicylates Acetaminophen 11/05/21 11/05/21 11/05/21 21:25 22:22 23:43 WBC RBC Hgb Hct MCH RDW Plt Count Lymph % (Auto) Lymph # (Auto) [place] # (Auto) Seg Neutrophils % Seg Neuts % (Manual) Lymphocytes % (Manual) Nucleated RBC % Seg Neutrophils # Seg Neutrophils # Man Monocytes # (Manual) PT INR APTT D-Dimer Heparin Anti-Xa Level ABG pH ABG pO2 ABG HCO3 ABG O2 Saturation ABG Base Excess ABG Hemoglobin Oxyhemoglobin Sodium Potassium 5.3 H Chloride 109.2 H Carbon Dioxide BUN 81 H Creatinine 2.0 H Glucose 195 H POC Glucose 180 H 203 H Hemoglobin A1c Lactic Acid Calcium Phosphorus Magnesium Ferritin AST ALT Alkaline Phosphatase Lactate Dehydrogenase Troponin T C-Reactive Protein Total Protein Albumin LDL Cholesterol Direct Urine Creatinine Urine Total Protein Salicylates Acetaminophen 11/05/21 11/06/21 11/06/21 Unknown 02:35 05:09 WBC RBC Hgb Hct MCH RDW Plt Count Lymph % (Auto) Lymph # (Auto) [place] # (Auto) Seg Neutrophils % Seg Neuts % (Manual) Lymphocytes % (Manual) Nucleated RBC % Seg Neutrophils # Seg Neutrophils # Man Monocytes # (Manual) PT INR APTT D-Dimer Heparin Anti-Xa Level ABG pH ABG pO2 ABG HCO3 ABG O2 Saturation ABG Base Excess ABG Hemoglobin Oxyhemoglobin Sodium 146 H Potassium 6.0 H Chloride 108.1 H 107.1 H Carbon Dioxide 21 L BUN 80 H 84 H Creatinine 2.0 H 2.0 H Glucose 238 H 235 H POC Glucose 215 H Hemoglobin A1c Lactic Acid Calcium Phosphorus Magnesium 2.80 H Ferritin AST ALT 77 H Alkaline Phosphatase Lactate Dehydrogenase Troponin T C-Reactive Protein Total Protein Albumin 3.0 L LDL Cholesterol Direct Urine Creatinine Urine Total Protein Salicylates Acetaminophen 11/06/21 11/06/21 11/06/21 05:40 08:07 08:07 WBC RBC Hgb Hct MCH RDW Plt Count Lymph % (Auto) Lymph # (Auto) [place] # (Auto) Seg Neutrophils % Seg Neuts % (Manual) Lymphocytes % (Manual) Nucleated RBC % Seg Neutrophils # Seg Neutrophils # Man Monocytes # (Manual) PT INR APTT D-Dimer Heparin Anti-Xa Level 1.24 H ABG pH 7.311 L ABG pO2 72.8 L ABG HCO3 29.7 H ABG O2 Saturation 94.1 L ABG Base Excess ABG Hemoglobin 11.4 L Oxyhemoglobin 92.3 L Sodium Potassium 5.2 H Chloride Carbon Dioxide BUN 85 H Creatinine 2.3 H Glucose 236 H POC Glucose Hemoglobin A1c Lactic Acid Calcium Phosphorus Magnesium Ferritin AST ALT Alkaline Phosphatase Lactate Dehydrogenase Troponin T C-Reactive Protein Total Protein Albumin LDL Cholesterol Direct Urine Creatinine Urine Total Protein Salicylates Acetaminophen 11/06/21 11/06/21 11/06/21 12:14 12:57 14:28 WBC RBC Hgb Hct MCH RDW Plt Count Lymph % (Auto) Lymph # (Auto) [place] # (Auto) Seg Neutrophils % Seg Neuts % (Manual) Lymphocytes % (Manual) Nucleated RBC % Seg Neutrophils # Seg Neutrophils # Man Monocytes # (Manual) PT INR APTT D-Dimer Heparin Anti-Xa Level ABG pH 7.282 L ABG pO2 72.6 L ABG HCO3 30.8 H ABG O2 Saturation 93.7 L ABG Base Excess 3.2 H ABG Hemoglobin 8.6 L Oxyhemoglobin 91.8 L Sodium Potassium Chloride Carbon Dioxide BUN 91 H Creatinine 2.6 H Glucose 259 H POC Glucose 225 H Hemoglobin A1c Lactic Acid Calcium Phosphorus Magnesium Ferritin AST ALT Alkaline Phosphatase Lactate Dehydrogenase Troponin T C-Reactive Protein Total Protein Albumin LDL Cholesterol Direct Urine Creatinine Urine Total Protein Salicylates Acetaminophen 11/06/21 11/06/21 11/06/21 17:28 19:20 21:30 WBC RBC Hgb Hct MCH RDW Plt Count Lymph % (Auto) Lymph # (Auto) [place] # (Auto) Seg Neutrophils % Seg Neuts % (Manual) Lymphocytes % (Manual) Nucleated RBC % Seg Neutrophils # Seg Neutrophils # Man Monocytes # (Manual) PT INR APTT D-Dimer Heparin Anti-Xa Level 0.73 H ABG pH ABG pO2 ABG HCO3 ABG O2 Saturation ABG Base Excess ABG Hemoglobin Oxyhemoglobin Sodium Potassium Chloride Carbon Dioxide BUN 95 H Creatinine 2.9 H Glucose 233 H POC Glucose 206 H Hemoglobin A1c Lactic Acid Calcium Phosphorus Magnesium Ferritin AST ALT Alkaline Phosphatase Lactate Dehydrogenase Troponin T C-Reactive Protein Total Protein Albumin LDL Cholesterol Direct Urine Creatinine Urine Total Protein Salicylates Acetaminophen 11/06/21 11/07/21 11/07/21 22:56 05:06 06:30 WBC RBC Hgb Hct MCH RDW Plt Count Lymph % (Auto) Lymph # (Auto) [place] # (Auto) Seg Neutrophils % Seg Neuts % (Manual) Lymphocytes % (Manual) Nucleated RBC % Seg Neutrophils # Seg Neutrophils # Man Monocytes # (Manual) PT INR APTT D-Dimer Heparin Anti-Xa Level ABG pH ABG pO2 ABG HCO3 ABG O2 Saturation ABG Base Excess ABG Hemoglobin Oxyhemoglobin Sodium 146 H Potassium Chloride Carbon Dioxide BUN 98 H Creatinine 2.8 H Glucose 202 H POC Glucose 215 H 172 H Hemoglobin A1c Lactic Acid Calcium Phosphorus 4.90 H D Magnesium 2.90 H Ferritin AST ALT Alkaline Phosphatase Lactate Dehydrogenase Troponin T C-Reactive Protein Total Protein Albumin LDL Cholesterol Direct Urine Creatinine Urine Total Protein Salicylates Acetaminophen 11/07/21 06:30 WBC 16.0 H RBC 3.06 L Hgb 8.2 L Hct 26.1 L MCH 27 L RDW 16.2 H Plt Count Lymph % (Auto) Lymph # (Auto) [place] # (Auto) Seg Neutrophils % Seg Neuts % (Manual) 77.0 H Lymphocytes % (Manual) 11.0 L Nucleated RBC % 2.0 H Seg Neutrophils # Seg Neutrophils # Man 12.3 H Monocytes # (Manual) PT INR APTT D-Dimer Heparin Anti-Xa Level ABG pH ABG pO2 ABG HCO3 ABG O2 Saturation ABG Base Excess ABG Hemoglobin Oxyhemoglobin Sodium Potassium Chloride Carbon Dioxide BUN Creatinine Glucose POC Glucose Hemoglobin A1c Lactic Acid Calcium Phosphorus Magnesium Ferritin AST ALT Alkaline Phosphatase Lactate Dehydrogenase Troponin T C-Reactive Protein Total Protein Albumin LDL Cholesterol Direct Urine Creatinine Urine Total Protein Salicylates Acetaminophen Chest x-ray: image reviewed (Low lung volumes, right pleural drain, ETT in position, alveolar infiltrates, consistent with edema) Allied health notes reviewed: RT
[2021-11-07 13:09] LABS: ABG Base Excess 5.8 mmol/L (-2.0-3.0); ABG HCO3 33.3 mmol/L (20.0-26.0); ABG Methemoglobin 0.4 % (0.0-1.5); ABG Oxygen Saturation 94.4 % (95.0-99.0); ABG PCO2 69.6 mm Hg; ABG PH 7.298 pH Units (7.350-7.450)
--- NOTE | 2021-11-07 15:34 | Progress Note ---
Assessment and Plan Assessment: Acute Renal Failure secondary to Ischemic ATN secondary to Sepsis, Cardiac arrest and Hypotension S/P Cardiac Arrest Acute Hypoxemic Respiratory Failure Acute DVT Sepsis CHF Anemia Hyperkalemia Plan: Renal labs reviewed. Serum creatinine slightly down monitor. Na 146, D5W 50 cc/hr for 10 hours. ARF likely secondary to Ischemic ATN LVEF 25-30 % Renal US shows CKD signs, no hydronephrosis Ordered urine lytes, protein and eosinophils Hyperkalemia-K improved with medical management. DVT-on Heparin drip Intubated on Vent, Per ICU Strict I/O's daily Renally dose medications Avoid nephratoxic agents No acute indication for MANAGED CARE COORDINATOR Will monitor renal function closely Critical Care time: 35 minutes Subjective Date of service: 11/07/21 Principal diagnosis: AHRF; Cardiac arrest; R. pneumothorax; pneumonia; AMS; DVT's; SIERRA; Obesity Interval history: Intubated on Vent. In ICU. Making urine. Objective - Exam Narrative Exam: - General Appearance General appearance: sedated on ventilator, intubated EENT: ATNC, other (Blinks eyes) Respiratory: Decreased Breath Sounds, Other (Intubated) Heart: S1S2 Gastrointestinal: Present: normoactive bowel sounds, other (NG tube) Integumentary: no rash, warm and dry Neurologic: other (Intubated, blinks eyes) Musculoskeletal: Present: other (mild edema to BLE) - Vital Signs Vital signs: Vital Signs - 12hr 11/07/21 11/07/21 11/07/21 04:00 04:40 06:24 Temperature Pulse Rate 107 H 79 103 H Pulse Rate [ 107 H From Monitor] Respiratory 14 Rate Blood Pressure 121/67 143/76 O2 Sat by Pulse 97 96 Oximetry 11/07/21 11/07/21 11/07/21 06:25 07:19 08:00 Temperature 99 F Pulse Rate 102 H 80 Pulse Rate [ 107 H From Monitor] Respiratory 14 Rate Blood Pressure 107/61 116/65 O2 Sat by Pulse 97 97 Oximetry 11/07/21 11/07/21 11/07/21 11:57 12:00 12:51 Temperature 99 F Pulse Rate 82 Pulse Rate [ 107 H From Monitor] Respiratory 14 Rate Blood Pressure 109/62 O2 Sat by Pulse 97 96 Oximetry - Lab 11/07/21 06:30 11/07/21 06:30 Most recent lab results ABG pH 7.298 pH Units (7.350-7.450) L 11/07/21 12:15 ABG pCO2 69.6 mm Hg 11/07/21 12:15 ABG pO2 73.0 mm Hg (80.0-90.0) L 11/07/21 12:15 ABG HCO3 33.3 mmol/L (20.0-26.0) H 11/07/21 12:15 ABG O2 Saturation 94.4 % (95.0-99.0) L 11/07/21 12:15 Calcium 8.5 mg/dL (8.4-10.2) 11/07/21 06:30 Phosphorus 4.90 mg/dL (2.5-4.5) H D 11/07/21 06:30 Magnesium 2.90 mg/dL (1.7-2.3) H 11/07/21 06:30 Urine Creatinine 190.9 mg/dL (0.1-20.0) H 11/04/21 Unknown Urine Sodium 10 mmol/L 11/04/21 Unknown Urine Total Protein 172 mg/dL (5-11.8) H 11/04/21 Unknown Medications & Allergies - Medications Allergies/Adverse Reactions: Allergies No Known Allergies Allergy (Verified 10/29/21 14:01) Active Medications: Generic Name Dose Route Start Last Admin Trade Name Freq PRN Reason Stop Dose Admin Acetaminophen 650 mg 10/29/21 17:04 11/03/21 11:35 Acetaminophen 325 Mg Tab PO 650 mg Q6H PRN Administration Pain, Mild (1-3) Acetaminophen 650 mg 10/29/21 17:04 Acetaminophen 650 Mg Rect Supp [place] Q6H PRN Pain MILD(1-3)/Fever >100.5/NIEVES Lipase/Protease/Amylase 1 each 10/31/21 08:56 Lipase 10,500/Protease 25,000/Amylase 43,750 (Units) Dr Ivory FEEDTUBE PRN PRN For Clogged Feeding Tube Dextrose 0 ml 11/04/21 13:48 11/05/21 15:29 Dextrose 10% *Hypoglycemia IV 250 ml PRN PRN Administration Hypoglycemia Famotidine 10 mg 11/06/21 10:00 11/07/21 09:02 Famotidine 10 Mg Tab PO 10 mg BID RAMON Administration Fentanyl 50 mcg 11/04/21 14:32 11/06/21 08:36 Fentanyl 100 Mcg/2 Ml Inj IV 50 mcg Q2H PRN Administration Pain, Moderate (4-6) Heparin Sodium (Porcine) 4,300 unit 10/30/21 17:00 Heparin 10,000 Units/10 Ml Vial 40 unit/kg (4300 unit) IV Q6H PRN Anti-Xa Assay < 0.1 units/ml Hydrophilic Ointment 1 applic 10/29/21 14:29 Lip Therapy Vaseline TP Q2HR PRN Dry Lips Fentanyl Citrate 2,000 mcg in 100 mls @ 5.67 mls/hr 10/29/21 15:00 11/07/21 13:44 Fentanyl Drip Premix IV 4 mcg/kg/hr TITR RAMON 22.68 mls/hr Administration Protocol 1 MCG/KG/HR NORepinephrine/NS 8 MG-250 ML 8 mg in 250 mls @ 3.75 mls/hr 10/29/21 15:00 11/04/21 07:00 Norepinephrine/Ns 8 Mg-250 Ml (Double Conc) IV 0 mcg/min TITRATE RAMON 0 mls/hr Titration Protocol 2 MCG/MIN Heparin Sodium/Sodium Chloride 25,000 unit in 500 mls @ 30 mls/hr 10/30/21 17:00 11/07/21 08:38 Heparin/ 0.45% Nacl-25,000 Unit/500 Ml IV 1,400 units/hr TITR RAMON 28 mls/hr Titration Protocol 1,500 UNITS/HR Amiodarone HCl 900 mg/ 500 mls @ 33.333 mls/hr 11/03/21 11:00 11/05/21 08:29 Dextrose IV 0.5 mg/min DIRECT RAMON 16.667 mls/hr Administration Protocol 1 MG/MIN Dextrose 1,000 mls @ 50 mls/hr 11/07/21 11:00 11/07/21 11:25 D5w IV 11/07/21 20:59 50 mls/hr DIRECT RAMON Administration Dexmedetomidine HCl 200 mcg/ 50 mls @ 5.335 mls/hr 11/07/21 15:00 Sodium Chloride IV TITRATE RAMON Protocol 0.2 MCG/KG/HR Insulin Glargine 10 units 11/05/21 22:00 11/06/21 23:23 Insulin Glargine 100 Units/Ml SUB-Q 10 units QHS RAMON Administration Insulin Human Lispro 0 unit 10/30/21 16:00 11/07/21 11:31 Insulin Lispro 100 Unit/Ml SUB-Q 3 unit Q6HR RAMON Administration Protocol Metoprolol Tartrate 50 mg 11/07/21 12:00 11/07/21 11:25 Metoprolol Tartrate 50 Mg Tab FEEDTUBE 50 mg Q6H RAMON Administration Multi-Ingred Cream/Lotion/Oil/Oint 1 applic 10/29/21 14:29 11/06/21 09:25 Mineral Oil/Petrolatum, White Ophth Oint 3.5 Gm OU 1 applic Q4HR PRN Administration Dry Eye(s) Quetiapine Fumarate 100 mg 11/05/21 22:00 11/06/21 23:24 Quetiapine 100 Mg Tab PO 100 mg QHS RAMON Administration Quetiapine Fumarate 75 mg 11/06/21 10:00 11/07/21 09:02 Quetiapine 25 Mg Tab PO 50 mg QAM RAMON Administration Senna/Docusate Sodium 1 tab 10/29/21 15:00 11/07/21 09:02 Sennosides/Docusate Sodium 8.6/50 Mg Tab FEEDTUBE 1 tab BID RAMON Administration Simple Syrup 15 ml 10/31/21 08:56 Simple Syrup 15 Ml FEEDTUBE PRN PRN Hypoglycemia Simple Syrup 30 ml 10/31/21 08:56 Simple Syrup 15 Ml FEEDTUBE PRN PRN Hypoglycemia Sodium Bicarbonate 325 mg 10/31/21 08:56 Sodium Bicarbonate 325 Mg Tab FEEDTUBE PRN PRN For Clogged Feeding Tube Sodium Chloride 10 ml 10/29/21 22:00 11/07/21 09:03 Sodium Chloride 0.9% 10 Ml Flush Syringe IV 10 ml BID RAMON Administration Sodium Chloride 10 ml 10/29/21 17:04 Sodium Chloride 0.9% 10 Ml Flush Syringe IV PRN PRN LINE FLUSH
[2021-11-07] MEDS: AMIODARONE 900 MG in DEXTROSE 5% IN WATER 482 ML IV SCH (18:09)
[2021-11-07] MEDS: QUEtiapine 100 MG TAB PO SCH (22:20)
[2021-11-07] MEDS: INSULIN GLARGINE 100 UNITS/ML SUB-Q SCH (22:20)
--- NOTE | 2021-11-07 23:54 | Magnetic Resonance Report ---
MR brain wo con INDICATION / CLINICAL INFORMATION: 66 years Female; CVA. TECHNIQUE: Multiplanar, multisequence MR images of the brain were obtained. COMPARISON: None available. FINDINGS: BRAIN / INTRACRANIAL CONTENTS: The motion degrades image quality despite using a fast acquisition seq uences. However, there is cerebral white matter disease, most notably involving periventricular regio ns and most consistent with microvascular angiopathy at. The diffusion imaging reveals no clear evide nce of acute infarction. There is mild cerebral atrophy. The ventricular system is correspondingly appropriate in size and con figuration. There is mild incidental hyperostosis frontalis interna. No extra-axial fluid collections or significant mass effect is identified. CRANIOCERVICAL JUNCTION: No significant abnormality. VASCULAR FLOW-VOIDS: No significant abnormality. ORBITS: No significant abnormality of visualized orbits. SINUSES / MASTOIDS: There is near complete opacification of the right sphenoid sinus. Milder mucosal thickening is noted within the left sphenoid sinus with small air-fluid level. There is also scattere d mucosal thickening within the ethmoid air cells and along the inferior maxillary sinuses at. Additi onally, there are bilateral effusions within the mastoid air cells. The above findings would appear t o be related to intubation and presence of nasogastric tube. ADDITIONAL FINDINGS: None. IMPRESSION: 1. There is mild microvascular angiopathy as described without evidence of recent infarction. Signer Name: Fly Franco MD Signed: 11/07/2021 7:19 PM Workstation Name: 5 [id number] and some [id number]
[2021-11-08] MEDS: METOPROLOL TARTRATE 50 MG TAB FEEDTUBE SCH ×4 (00:57→18:44)
[2021-11-08] MEDS: INSULIN LISPRO 100 UNIT/ML SUB-Q SCH ×4 (00:57→18:44)
--- NOTE | 2021-11-08 05:08 | XRay Report ---
CHEST 1 VIEW INDICATION / CLINICAL INFORMATION: resp failure, right pleural drain. COMPARISON: Chest x-ray 11/06/2021 FINDINGS: SUPPORT DEVICES: Stable, satisfactory device positioning. HEART / MEDIASTINUM: Stable. LUNGS / PLEURA: Low lung volumes. Opacities remain present most in the left lung base. Mild perihilar stranding unchanged. No pneumothorax. ADDITIONAL FINDINGS: No significant additional findings. IMPRESSION: 1. Stable chest, persistent bibasilar opacities more prevalent within the left lung base thought to r eflect atelectasis. Signer Name: Martínez Rosenberg II, MD Signed: 11/08/2021 5:03 AM Workstation Name: [id number]
[2021-11-08 05:11] LABS: Hematocrit 25.6 % (30.3-42.9); Hemoglobin 8.1 gm/dl (10.1-14.3); Mean Corpuscular HGB Conc 32 % (30-34); Mean Corpuscular Volume 85 fl (79-97); Platelet Count 237 K/mm3 (140-440); Red Blood Count 3.01 M/mm3 (3.65-5.03); Red Cell Distribution Width 15.4 % (13.2-15.2)
[2021-11-08 05:40] LABS: Calcium 8.1 mg/dL (8.4-10.2)
[2021-11-08] MEDS: POTASSIUM CHLORIDE 20 MEQ 20 MEQ/100 ML BAG IV SCH ×4 (06:33→23:51)
[2021-11-08] MEDS: QUEtiapine 25 MG TAB PO SCH (09:30)
[2021-11-08] MEDS: FAMOTIDINE 10 MG TAB PO SCH ×2 (09:30→21:34)
[2021-11-08] MEDS: SENNOSIDES/DOCUSATE SODIUM 8.6/50 MG TAB FEEDTUBE SCH ×2 (09:30→21:34)
[2021-11-08] MEDS: FREE WATER PO SCH ×5 (09:31→21:46)
--- NOTE | 2021-11-08 09:56 | Progress Note ---
Assessment and Plan Patient is a 66-year-old female with unknown past medical history brought into the ED following outside of hospital cardiac arrest thought to be PEA with thought to have downtime of 7 to 9 minutes however details are unclear S/P PEA cardiopulmonary arrest-No longer on pressors Acute hypoxic respiratory failure-pulm following Septic shock Aspiration pneumonia Pneumothorax- s/p CT Acute DVT-on Heparin gtt Hypokalemia Transaminitis Echo 10/30/2021-technically difficult study due to body habitus. EF 25 to 30%. Right ventricular systolic function is normal. No pericardial effusion Plan: Continue metoprolol 50 mg p.o. every 6 hours Stop amiodarone drip. Convert to amio 200mg PO QD Patient is hypertensive this AM will initiate hydralazine 25mg PO TID and Imdur 30mg PO QD No LAYO/ ARB due to elevated creatinine Patient currently anticoagulated on heparin drip Patient seen in conjunction with Dr. Archer who agrees with this plan of care - Patient Problems (1) Cardiopulmonary arrest Current Visit: Yes Status: Acute (2) Hypokalemia Current Visit: Yes Status: Acute (3) Transaminitis Current Visit: Yes Status: Acute (4) Aspiration pneumonia Current Visit: Yes Status: Acute (5) Acute hypoxemic respiratory failure Current Visit: Yes Status: Acute (6) Septic shock Current Visit: Yes Status: Acute (7) Toxic metabolic encephalopathy Current Visit: Yes Status: Acute (8) Shock liver Current Visit: Yes Status: Acute Subjective Date of service: 11/08/21 Principal diagnosis: AHRF; Cardiac arrest; R. pneumothorax; pneumonia; AMS; DVT's; SIERRA; Obesity Interval history: Patient remains intubated and sedated Patient converted to sinus rhythm overnight. Trending sinus 60s-70s Objective Vital Signs Temp Pulse Pulse Resp BP Pulse Ox 11/08/21 08:00 99 F 107 H 14 97 11/08/21 07:02 65 140/81 98 11/08/21 06:17 68 155/92 11/08/21 04:21 71 131/68 96 11/08/21 04:00 99.2 F 69 107 H 14 97 11/08/21 00:57 68 11/08/21 00:00 99.8 F H 68 107 H 14 97 11/07/21 23:47 80 131/77 98 11/07/21 20:00 100.2 F H 105 H 107 H 14 97 11/07/21 19:17 107 H 159/95 98 11/07/21 16:45 81 109/61 94 11/07/21 16:30 89 14 109/69 93 11/07/21 16:00 100 F H 142 H 107 H 14 149/85 97 11/07/21 15:37 157 H 110/59 11/07/21 14:00 82 14 110/59 96 11/07/21 13:30 82 14 111/63 96 11/07/21 13:00 81 14 102/55 96 11/07/21 12:51 82 109/62 96 11/07/21 12:30 81 14 109/62 96 11/07/21 12:00 80 107 H 14 106/57 96 11/07/21 11:57 99 F 11/07/21 11:31 121 H 17 144/84 95 11/07/21 11:01 82 6 L 114/62 94 11/07/21 10:31 121 H 15 181/81 95 11/07/21 10:00 113 H 15 164/73 96 - Physical Examination General: Other (Intubated and sedated) HEENT: Positive: Normocephaly Neck: Positive: trachea midline Cardiac: Positive: Reg Rate and Rhythm Lungs: Positive: Ventilated Respirations Neuro: Positive: Other (sedated) Abdomen: Positive: Soft, Active Bowel Sounds Skin: Negative: Rash Musculoskeletal: No Fluid Collection Extremities: Present: edema - Labs and Meds CBC 11/08/21 Range/Units 04:20 WBC 22.1 H (4.5-11.0) K/mm3 RBC 3.01 L (3.65-5.03) M/mm3 Hgb 8.1 L (10.1-14.3) gm/dl Hct 25.6 L (30.3-42.9) % Plt Count 237 (140-440) K/mm3 Comprehensive Metabolic Panel 11/08/21 Range/Units 04:20 Sodium 151 H (137-145) mmol/L Potassium 3.1 L D (3.6-5.0) mmol/L Chloride 107.3 H (98-107) mmol/L Carbon Dioxide 31 H (22-30) mmol/L BUN 82 H (7-17) mg/dL Creatinine 1.8 H (0.6-1.2) mg/dL Glucose 232 H (65-100) mg/dL Calcium 8.1 L (8.4-10.2) mg/dL - Imaging and Cardiology Echo: report reviewed - Telemetry EKG Rhythm: Sinus Rhythm - EKG Sinus rhythms and dysrhythmias: sinus rhythm Ventricular dysrhythmias: ventricular premature com - Allied health notes Allied health notes reviewed: RT
--- NOTE | 2021-11-08 10:08 | Progress Note ---
Assessment and Plan Assessment: Acute Renal Failure secondary to Ischemic ATN secondary to Sepsis, Cardiac arrest and Hypotension S/P Cardiac Arrest Acute Hypoxemic Respiratory Failure Acute DVT Sepsis CHF Anemia Hyperkalemia Plan: Renal labs reviewed. Serum creatinine slightly down monitor. Na 151, D5W at 75 cc/hr. ARF likely secondary to Ischemic ATN LVEF 25-30 % Renal US shows CKD signs, no hydronephrosis Ordered urine lytes, protein and eosinophils Hyperkalemia-K improved with medical management. now down. DVT-on Heparin drip Intubated on Vent, Per ICU Strict I/O's daily Renally dose medications Avoid nephratoxic agents No acute indication for ROUTER OPERATOR PIN Will monitor renal function closely Critical Care time: 36 minutes Subjective Date of service: 11/08/21 Principal diagnosis: AHRF; Cardiac arrest; R. pneumothorax; pneumonia; AMS; DVT's; SIERRA; Obesity Interval history: Intubated on Vent. In ICU. Making urine. Objective - Exam Narrative Exam: - General Appearance General appearance: sedated on ventilator, intubated EENT: ATNC, other (Blinks eyes) Respiratory: Decreased Breath Sounds, Other (Intubated) Heart: S1S2 Gastrointestinal: Present: normoactive bowel sounds, other (NG tube) Integumentary: no rash, warm and dry Neurologic: other (Intubated, blinks eyes) Musculoskeletal: Present: other (mild edema to BLE) - Vital Signs Vital signs: Vital Signs - 12hr 11/07/21 11/08/21 11/08/21 23:47 00:00 00:57 Temperature 99.8 F H Pulse Rate 80 68 68 Pulse Rate [ 107 H From Monitor] Respiratory 14 Rate Blood Pressure 131/77 O2 Sat by Pulse 98 97 Oximetry 11/08/21 11/08/21 11/08/21 04:00 04:21 06:17 Temperature 99.2 F Pulse Rate 69 71 68 Pulse Rate [ 107 H From Monitor] Respiratory 14 Rate Blood Pressure 131/68 155/92 O2 Sat by Pulse 97 96 Oximetry 11/08/21 11/08/21 07:02 08:00 Temperature 99 F Pulse Rate 65 Pulse Rate [ 107 H From Monitor] Respiratory 14 Rate Blood Pressure 140/81 O2 Sat by Pulse 98 97 Oximetry - Lab 11/08/21 04:20 11/08/21 12:00 Most recent lab results ABG pH 7.298 pH Units (7.350-7.450) L 11/07/21 12:15 ABG pCO2 69.6 mm Hg 11/07/21 12:15 ABG pO2 73.0 mm Hg (80.0-90.0) L 11/07/21 12:15 ABG HCO3 33.3 mmol/L (20.0-26.0) H 11/07/21 12:15 ABG O2 Saturation 94.4 % (95.0-99.0) L 11/07/21 12:15 Calcium 8.1 mg/dL (8.4-10.2) L 11/08/21 04:20 Phosphorus 4.90 mg/dL (2.5-4.5) H D 11/07/21 06:30 Magnesium 2.90 mg/dL (1.7-2.3) H 11/07/21 06:30 Urine Creatinine 190.9 mg/dL (0.1-20.0) H 11/04/21 Unknown Urine Sodium 10 mmol/L 11/04/21 Unknown Urine Total Protein 172 mg/dL (5-11.8) H 11/04/21 Unknown Medications & Allergies - Medications Allergies/Adverse Reactions: Allergies No Known Allergies Allergy (Verified 10/29/21 14:01) Active Medications: Generic Name Dose Route Start Last Admin Trade Name Freq PRN Reason Stop Dose Admin Acetaminophen 650 mg 10/29/21 17:04 11/03/21 11:35 Acetaminophen 325 Mg Tab PO 650 mg Q6H PRN Administration Pain, Mild (1-3) Acetaminophen 650 mg 10/29/21 17:04 Acetaminophen 650 Mg Rect Supp [place] Q6H PRN Pain MILD(1-3)/Fever >100.5/NIEVES Amiodarone HCl 200 mg 11/08/21 10:00 Amiodarone 200 Mg Tab PO QDAY RAMON Lipase/Protease/Amylase 1 each 10/31/21 08:56 Lipase 10,500/Protease 25,000/Amylase 43,750 (Units) Dr Ivory FEEDTUBE PRN PRN For Clogged Feeding Tube Dextrose 0 ml 11/04/21 13:48 11/05/21 15:29 Dextrose 10% *Hypoglycemia IV 250 ml PRN PRN Administration Hypoglycemia Famotidine 10 mg 11/06/21 10:00 11/08/21 09:30 Famotidine 10 Mg Tab PO 10 mg BID RAMON Administration Fentanyl 50 mcg 11/04/21 14:32 11/06/21 08:36 Fentanyl 100 Mcg/2 Ml Inj IV 50 mcg Q2H PRN Administration Pain, Moderate (4-6) Heparin Sodium (Porcine) 4,300 unit 10/30/21 17:00 Heparin 10,000 Units/10 Ml Vial 40 unit/kg (4300 unit) IV Q6H PRN Anti-Xa Assay < 0.1 units/ml Hydralazine HCl 25 mg 11/08/21 10:00 Hydralazine 25 Mg Tab PO Q8HR RAMON Hydrophilic Ointment 1 applic 10/29/21 14:29 Lip Therapy Vaseline TP Q2HR PRN Dry Lips Fentanyl Citrate 2,000 mcg in 100 mls @ 5.67 mls/hr 10/29/21 15:00 11/07/21 13:44 Fentanyl Drip Premix IV 4 mcg/kg/hr TITR RAMON 22.68 mls/hr Administration Protocol 1 MCG/KG/HR NORepinephrine/NS 8 MG-250 ML 8 mg in 250 mls @ 3.75 mls/hr 10/29/21 15:00 11/04/21 07:00 Norepinephrine/Ns 8 Mg-250 Ml (Double Conc) IV 0 mcg/min TITRATE RAMON 0 mls/hr Titration Protocol 2 MCG/MIN Heparin Sodium/Sodium Chloride 25,000 unit in 500 mls @ 30 mls/hr 10/30/21 17:00 11/07/21 16:00 Heparin/ 0.45% Nacl-25,000 Unit/500 Ml IV 1,400 units/hr TITR RAMON 28 mls/hr Titration Protocol 1,500 UNITS/HR Dexmedetomidine HCl 200 mcg/ 50 mls @ 5.335 mls/hr 11/07/21 15:00 11/08/21 05:44 Sodium Chloride IV 0.4 mcg/kg/hr TITRATE RAMON 10.67 mls/hr Administration Protocol 0.2 MCG/KG/HR Insulin Glargine 10 units 11/05/21 22:00 11/07/21 22:20 Insulin Glargine 100 Units/Ml SUB-Q 10 units QHS RAMON Administration Insulin Human Lispro 0 unit 10/30/21 16:00 11/08/21 06:16 Insulin Lispro 100 Unit/Ml SUB-Q 3 unit Q6HR RAMON Administration Protocol Isosorbide Mononitrate 30 mg 11/08/21 10:00 Isosorbide Mononitrate Er 30 Mg Tab PO QDAY RAMON Metoprolol Tartrate 50 mg 11/07/21 12:00 11/08/21 06:17 Metoprolol Tartrate 50 Mg Tab FEEDTUBE 50 mg Q6H RAMON Administration Multi-Ingred Cream/Lotion/Oil/Oint 1 applic 10/29/21 14:29 11/06/21 09:25 Mineral Oil/Petrolatum, White Ophth Oint 3.5 Gm OU 1 applic Q4HR PRN Administration Dry Eye(s) Quetiapine Fumarate 100 mg 11/05/21 22:00 11/07/21 22:20 Quetiapine 100 Mg Tab PO 100 mg QHS RAMON Administration Quetiapine Fumarate 75 mg 11/06/21 10:00 11/08/21 09:30 Quetiapine 25 Mg Tab PO 75 mg QAM RAMON Administration Senna/Docusate Sodium 1 tab 10/29/21 15:00 11/08/21 09:30 Sennosides/Docusate Sodium 8.6/50 Mg Tab FEEDTUBE 1 tab BID RAMON Administration Simple Syrup 15 ml 10/31/21 08:56 Simple Syrup 15 Ml FEEDTUBE PRN PRN Hypoglycemia Simple Syrup 30 ml 10/31/21 08:56 Simple Syrup 15 Ml FEEDTUBE PRN PRN Hypoglycemia Sodium Bicarbonate 325 mg 10/31/21 08:56 Sodium Bicarbonate 325 Mg Tab FEEDTUBE PRN PRN For Clogged Feeding Tube Sodium Chloride 10 ml 10/29/21 22:00 11/08/21 09:31 Sodium Chloride 0.9% 10 Ml Flush Syringe IV 10 ml BID RAOMN Administration Sodium Chloride 10 ml 10/29/21 17:04 Sodium Chloride 0.9% 10 Ml Flush Syringe IV PRN PRN LINE FLUSH
[2021-11-08] MEDS: AMIODARONE 200 MG TAB PO SCH (10:10)
[2021-11-08] MEDS: hydrALAZINE 25 MG TAB PO SCH ×3 (10:10→21:33)
--- NOTE | 2021-11-08 10:12 | Progress Note ---
Assessment and Plan Assessment and Plan Assessment and plan: This is a 66-year-old female with past medical history of HTN and Obesity admitted for septic shock, s/p cardiac arrest with ROSC in the field now intubated and on ventilatory support # Acute encephalopathy -possibly multifactorial , in apart is related to medications and or underlying infection , anoxic brain injury and or CVA can not be totally excluded -Suggest EEG and Brain MRI if possible -cut down sedation as possible -PT therapy evaluation and rom to be done daily -CT head no acute focal parenchymal lesion in the brain -Brain MRI is unremarkable -EEG is remarkable for diffuse slowing possible drug related #New onset Atrial fibrillation/atrial flutter s/p cardiac arrest, HFrEF, hypotension, h/o htn -Outside hospital cardiac arrest with ROSC -s/p vasopressor support with levophed -- weaned off -Echocardiogram shows left ventricular systolic function severely decreased, LVEF 25 to 30%, no pericardial effusion -proBNP 5622 -Amiodarone bolus with drip -Cardizem bolus with gtt -Heparin drip # Acute hypoxic respiratory failure, right pneumothorax, Angioedema (resolved) -SPO2 monitoring -Right chest tube to wall suction -s/p steroids for angioedema # Protein calorie malnutrion, transaminitis likely shocked liver -Trend LFTs -BM: 11/06 # Acute kidney injury likely secondary to vasomotor nephropathy, hyperkalemia, metabolic acidosis, -Bun/Cr#11/1.2 today # Septic shock -COVID-19 PCR negative -S/p antibiotic therapy with Rocephin and azithromycin () # Hyperglycemia -Avoid hypoglycemia -Hbg A1C 6.7 # Acute DVT in the left posterior tibial vein and bilateral peroneal veins, Leukocytosis -D-dimer greater than 10,000 -CTA chest with no evidence of PE -Bilateral lower extremity ultrasound positive for DVT -Heparin gtt -Trend CBC -SCDs to BLE while in bed -Transfuse hemoglobin less than 7 -Monitor for signs of bleeding. PLAN 1- Cut down sedation as possible/ she is currently on presidex and is of fentanyl 2- EEG diffuse slowing ,medication related , no sign of seizure 3- MRI brain no acute event is noted 4- treat underlying infection 5-Iv heparin for now / no objection to change to po AC as per cardiology will follow as needed Subjective Date of service: 11/08/21 Principal diagnosis: AHRF; Cardiac arrest; R. pneumothorax; pneumonia; AMS; DVT's; SIERRA; Obesity Objective - Vital Sign Vital Signs - 12hr 11/07/21 11/08/21 11/08/21 23:47 00:00 00:57 Temperature 99.8 F H Pulse Rate 80 68 68 Pulse Rate [ 107 H From Monitor] Respiratory 14 Rate Blood Pressure 131/77 O2 Sat by Pulse 98 97 Oximetry 11/08/21 11/08/21 11/08/21 04:00 04:21 06:17 Temperature 99.2 F Pulse Rate 69 71 68 Pulse Rate [ 107 H From Monitor] Respiratory 14 Rate Blood Pressure 131/68 155/92 O2 Sat by Pulse 97 96 Oximetry 11/08/21 11/08/21 07:02 08:00 Temperature 99 F Pulse Rate 65 Pulse Rate [ 107 H From Monitor] Respiratory 14 Rate Blood Pressure 140/81 O2 Sat by Pulse 98 97 Oximetry - General Apperance Constitutional: comfortable - EENT EENT: PERRL, mucous membranes moist - Respiratory Respiratory: lungs clear, rhonchi - Cardiovascular Cardiovascular: normal S1, normal S2, other (irregular) Extremities: no peripheral edema bilat, no clubbing, cyanosis - Gastrointestinal Gastrointestinal: normoactive bowel sounds - Integumentary Integumentary: normal - Neurologic Cranial nerve examination: PERRL, EOMI, intact Speech examination: other (intubated) Detailed motor examination: other (move hands and to lesser extent legs) - Laboratory Findings CBC and BMP: 11/08/21 04:20 11/08/21 04:20 Abnormal Lab Findings: Abnormal Labs 10/29/21 10/29/21 10/29/21 15:10 15:10 15:10 WBC 27.8 H RBC Hgb Hct MCH 27 L RDW Plt Count Lymph % (Auto) Lymph # (Auto) [place] # (Auto) Seg Neutrophils % Seg Neuts % (Manual) 78.0 H Lymphocytes % (Manual) 10.0 L Nucleated RBC % Seg Neutrophils # Seg Neutrophils # Man 21.7 H Monocytes # (Manual) 1.4 H PT INR APTT D-Dimer Heparin Anti-Xa Level ABG pH ABG pO2 ABG HCO3 ABG O2 Saturation ABG Base Excess ABG Hemoglobin Oxyhemoglobin Sodium Potassium Chloride Carbon Dioxide BUN Creatinine Glucose POC Glucose Hemoglobin A1c Lactic Acid 6.80 H* Calcium Phosphorus Magnesium Ferritin AST ALT Alkaline Phosphatase Lactate Dehydrogenase Troponin T 0.089 H C-Reactive Protein Total Protein Albumin LDL Cholesterol Direct Urine Creatinine Urine Total Protein Salicylates Acetaminophen 10/29/21 10/29/21 10/29/21 15:10 15:10 15:10 WBC RBC Hgb Hct MCH RDW Plt Count Lymph % (Auto) Lymph # (Auto) [place] # (Auto) Seg Neutrophils % Seg Neuts % (Manual) Lymphocytes % (Manual) Nucleated RBC % Seg Neutrophils # Seg Neutrophils # Man Monocytes # (Manual) PT INR APTT D-Dimer Heparin Anti-Xa Level ABG pH ABG pO2 ABG HCO3 ABG O2 Saturation ABG Base Excess ABG Hemoglobin Oxyhemoglobin Sodium 136 L Potassium 2.8 L* Chloride 93.4 L Carbon Dioxide 20 L BUN Creatinine Glucose 330 H POC Glucose Hemoglobin A1c Lactic Acid Calcium Phosphorus Magnesium Ferritin AST 1013 H ALT 1289 H Alkaline Phosphatase 246 H Lactate Dehydrogenase Troponin T C-Reactive Protein Total Protein Albumin LDL Cholesterol Direct Urine Creatinine Urine Total Protein Salicylates < 0.3 L Acetaminophen 5.0 L 10/29/21 10/29/21 10/29/21 15:11 16:01 19:29 WBC RBC Hgb Hct MCH RDW Plt Count Lymph % (Auto) Lymph # (Auto) [place] # (Auto) Seg Neutrophils % Seg Neuts % (Manual) Lymphocytes % (Manual) Nucleated RBC % Seg Neutrophils # Seg Neutrophils # Man Monocytes # (Manual) PT INR APTT D-Dimer Heparin Anti-Xa Level ABG pH 7.307 L ABG pO2 64.1 L ABG HCO3 ABG O2 Saturation 90.8 L ABG Base Excess -2.9 L ABG Hemoglobin Oxyhemoglobin 89.3 L Sodium Potassium Chloride Carbon Dioxide BUN Creatinine Glucose POC Glucose Hemoglobin A1c Lactic Acid 2.60 H* Calcium Phosphorus Magnesium 2.90 H Ferritin AST ALT Alkaline Phosphatase Lactate Dehydrogenase Troponin T C-Reactive Protein Total Protein Albumin LDL Cholesterol Direct Urine Creatinine Urine Total Protein Salicylates Acetaminophen 10/29/21 10/29/21 10/30/21 19:40 22:34 04:30 WBC 16.2 H RBC Hgb Hct MCH 26 L RDW 15.5 H Plt Count Lymph % (Auto) 6.2 L Lymph # (Auto) 1.0 L [place] # (Auto) 0.9 H Seg Neutrophils % 88.1 H Seg Neuts % (Manual) Lymphocytes % (Manual) Nucleated RBC % Seg Neutrophils # 14.2 H Seg Neutrophils # Man Monocytes # (Manual) PT INR APTT D-Dimer Heparin Anti-Xa Level ABG pH ABG pO2 ABG HCO3 ABG O2 Saturation ABG Base Excess ABG Hemoglobin Oxyhemoglobin Sodium Potassium Chloride Carbon Dioxide BUN Creatinine Glucose POC Glucose Hemoglobin A1c Lactic Acid Calcium Phosphorus Magnesium Ferritin AST ALT Alkaline Phosphatase Lactate Dehydrogenase Troponin T 1.950 H* D 1.150 H* D C-Reactive Protein Total Protein Albumin LDL Cholesterol Direct 43 L Urine Creatinine Urine Total Protein Salicylates Acetaminophen 10/30/21 10/30/21 10/30/21 04:30 04:35 05:45 WBC RBC Hgb Hct MCH RDW Plt Count Lymph % (Auto) Lymph # (Auto) [place] # (Auto) Seg Neutrophils % Seg Neuts % (Manual) Lymphocytes % (Manual) Nucleated RBC % Seg Neutrophils # Seg Neutrophils # Man Monocytes # (Manual) PT INR APTT D-Dimer Heparin Anti-Xa Level ABG pH ABG pO2 69.5 L ABG HCO3 ABG O2 Saturation ABG Base Excess -2.7 L ABG Hemoglobin Oxyhemoglobin 94.7 L Sodium Potassium Chloride Carbon Dioxide 21 L BUN Creatinine Glucose 159 H POC Glucose 151 H Hemoglobin A1c Lactic Acid Calcium 7.9 L D Phosphorus Magnesium Ferritin AST 461 H ALT 686 H Alkaline Phosphatase 130 H Lactate Dehydrogenase Troponin T C-Reactive Protein Total Protein 5.6 L D Albumin 3.2 L LDL Cholesterol Direct Urine Creatinine Urine Total Protein Salicylates Acetaminophen 10/30/21 10/30/21 10/30/21 11:24 15:59 16:30 WBC RBC Hgb Hct MCH RDW Plt Count Lymph % (Auto) Lymph # (Auto) [place] # (Auto) Seg Neutrophils % Seg Neuts % (Manual) Lymphocytes % (Manual) Nucleated RBC % Seg Neutrophils # Seg Neutrophils # Man Monocytes # (Manual) PT 17.2 H INR 1.27 H APTT 44.4 H D-Dimer Heparin Anti-Xa Level ABG pH ABG pO2 ABG HCO3 ABG O2 Saturation ABG Base Excess ABG Hemoglobin Oxyhemoglobin Sodium Potassium Chloride Carbon Dioxide BUN Creatinine Glucose POC Glucose 153 H 109 H Hemoglobin A1c Lactic Acid Calcium Phosphorus Magnesium Ferritin AST ALT Alkaline Phosphatase Lactate Dehydrogenase Troponin T C-Reactive Protein Total Protein Albumin LDL Cholesterol Direct Urine Creatinine Urine Total Protein Salicylates Acetaminophen 10/30/21 10/30/21 10/30/21 23:00 Unknown Unknown WBC RBC Hgb Hct MCH RDW Plt Count Lymph % (Auto) Lymph # (Auto) [place] # (Auto) Seg Neutrophils % Seg Neuts % (Manual) Lymphocytes % (Manual) Nucleated RBC % Seg Neutrophils # Seg Neutrophils # Man Monocytes # (Manual) PT INR APTT D-Dimer > 70591 H Heparin Anti-Xa Level 0.82 H ABG pH ABG pO2 ABG HCO3 ABG O2 Saturation ABG Base Excess ABG Hemoglobin Oxyhemoglobin Sodium Potassium Chloride Carbon Dioxide BUN Creatinine Glucose POC Glucose Hemoglobin A1c Lactic Acid Calcium Phosphorus Magnesium Ferritin 208.4 H AST ALT Alkaline Phosphatase Lactate Dehydrogenase Troponin T C-Reactive Protein Total Protein Albumin LDL Cholesterol Direct Urine Creatinine Urine Total Protein Salicylates Acetaminophen 10/30/21 10/31/21 10/31/21 Unknown 04:30 04:30 WBC 14.4 H RBC Hgb Hct MCH 26 L RDW Plt Count Lymph % (Auto) Lymph # (Auto) [place] # (Auto) Seg Neutrophils % Seg Neuts % (Manual) Lymphocytes % (Manual) Nucleated RBC % Seg Neutrophils # Seg Neutrophils # Man Monocytes # (Manual) PT INR APTT D-Dimer Heparin Anti-Xa Level ABG pH ABG pO2 ABG HCO3 ABG O2 Saturation ABG Base Excess ABG Hemoglobin Oxyhemoglobin Sodium Potassium 3.5 L Chloride 107.5 H Carbon Dioxide 20 L BUN 28 H Creatinine 1.7 H Glucose 113 H POC Glucose Hemoglobin A1c Lactic Acid Calcium 7.9 L Phosphorus Magnesium Ferritin AST ALT Alkaline Phosphatase Lactate Dehydrogenase 469 H Troponin T C-Reactive Protein 13.40 H Total Protein Albumin LDL Cholesterol Direct Urine Creatinine Urine Total Protein Salicylates Acetaminophen 10/31/21 10/31/21 10/31/21 04:30 05:11 15:30 WBC RBC Hgb Hct MCH RDW Plt Count Lymph % (Auto) Lymph # (Auto) [place] # (Auto) Seg Neutrophils % Seg Neuts % (Manual) Lymphocytes % (Manual) Nucleated RBC % Seg Neutrophils # Seg Neutrophils # Man Monocytes # (Manual) PT INR APTT D-Dimer Heparin Anti-Xa Level ABG pH 7.222 L ABG pO2 61.5 L ABG HCO3 ABG O2 Saturation 86.2 L ABG Base Excess -6.3 L ABG Hemoglobin 11.2 L Oxyhemoglobin 84.5 L Sodium Potassium Chloride Carbon Dioxide BUN Creatinine Glucose POC Glucose 106 H Hemoglobin A1c 6.7 H Lactic Acid Calcium Phosphorus Magnesium Ferritin AST ALT Alkaline Phosphatase Lactate Dehydrogenase Troponin T C-Reactive Protein Total Protein Albumin LDL Cholesterol Direct Urine Creatinine Urine Total Protein Salicylates Acetaminophen 10/31/21 10/31/21 10/31/21 16:07 16:35 17:45 WBC RBC Hgb Hct MCH RDW Plt Count Lymph % (Auto) Lymph # (Auto) [place] # (Auto) Seg Neutrophils % Seg Neuts % (Manual) Lymphocytes % (Manual) Nucleated RBC % Seg Neutrophils # Seg Neutrophils # Man Monocytes # (Manual) PT INR APTT D-Dimer Heparin Anti-Xa Level ABG pH 7.267 L ABG pO2 58.3 L ABG HCO3 ABG O2 Saturation 88.3 L ABG Base Excess -5.9 L ABG Hemoglobin 10.1 L Oxyhemoglobin 86.5 L Sodium Potassium Chloride Carbon Dioxide BUN Creatinine Glucose POC Glucose 115 H Hemoglobin A1c Lactic Acid Calcium Phosphorus Magnesium Ferritin AST ALT Alkaline Phosphatase Lactate Dehydrogenase Troponin T C-Reactive Protein Total Protein Albumin LDL Cholesterol Direct Urine Creatinine 383.6 H Urine Total Protein Salicylates Acetaminophen 11/01/21 11/01/21 11/01/21 00:06 05:08 06:00 WBC 12.6 H RBC 3.43 L Hgb 8.9 L Hct 28.7 L MCH 26 L RDW 15.7 H Plt Count 130 L Lymph % (Auto) Lymph # (Auto) [place] # (Auto) Seg Neutrophils % Seg Neuts % (Manual) Lymphocytes % (Manual) Nucleated RBC % Seg Neutrophils # Seg Neutrophils # Man Monocytes # (Manual) PT INR APTT D-Dimer Heparin Anti-Xa Level ABG pH ABG pO2 ABG HCO3 ABG O2 Saturation ABG Base Excess ABG Hemoglobin Oxyhemoglobin Sodium Potassium Chloride Carbon Dioxide BUN Creatinine Glucose POC Glucose 114 H 120 H Hemoglobin A1c Lactic Acid Calcium Phosphorus Magnesium Ferritin AST ALT Alkaline Phosphatase Lactate Dehydrogenase Troponin T C-Reactive Protein Total Protein Albumin LDL Cholesterol Direct Urine Creatinine Urine Total Protein Salicylates Acetaminophen 11/01/21 11/01/21 11/01/21 06:00 11:43 14:00 WBC RBC Hgb Hct MCH RDW Plt Count Lymph % (Auto) Lymph # (Auto) [place] # (Auto) Seg Neutrophils % Seg Neuts % (Manual) Lymphocytes % (Manual) Nucleated RBC % Seg Neutrophils # Seg Neutrophils # Man Monocytes # (Manual) PT INR APTT D-Dimer Heparin Anti-Xa Level ABG pH 7.349 L ABG pO2 75.6 L ABG HCO3 ABG O2 Saturation ABG Base Excess -3.9 L ABG Hemoglobin 9.8 L Oxyhemoglobin 93.5 L Sodium Potassium Chloride 114.1 H Carbon Dioxide 20 L BUN 33 H Creatinine Glucose 131 H POC Glucose 151 H Hemoglobin A1c Lactic Acid Calcium 7.7 L Phosphorus Magnesium Ferritin AST 79 H ALT 259 H Alkaline Phosphatase Lactate Dehydrogenase Troponin T C-Reactive Protein Total Protein 5.5 L Albumin 2.7 L LDL Cholesterol Direct Urine Creatinine Urine Total Protein Salicylates Acetaminophen 11/01/21 11/01/21 11/02/21 16:45 22:55 05:12 WBC RBC Hgb Hct MCH RDW Plt Count Lymph % (Auto) Lymph # (Auto) [place] # (Auto) Seg Neutrophils % Seg Neuts % (Manual) Lymphocytes % (Manual) Nucleated RBC % Seg Neutrophils # Seg Neutrophils # Man Monocytes # (Manual) PT INR APTT D-Dimer Heparin Anti-Xa Level ABG pH ABG pO2 ABG HCO3 ABG O2 Saturation ABG Base Excess ABG Hemoglobin Oxyhemoglobin Sodium Potassium Chloride Carbon Dioxide BUN Creatinine Glucose POC Glucose 119 H 129 H 140 H Hemoglobin A1c Lactic Acid Calcium Phosphorus Magnesium Ferritin AST ALT Alkaline Phosphatase Lactate Dehydrogenase Troponin T C-Reactive Protein Total Protein Albumin LDL Cholesterol Direct Urine Creatinine Urine Total Protein Salicylates Acetaminophen 11/02/21 11/02/21 11/02/21 05:35 05:35 09:35 WBC 13.5 H RBC 3.60 L Hgb 9.7 L Hct MCH 27 L RDW 15.7 H Plt Count Lymph % (Auto) Lymph # (Auto) [place] # (Auto) Seg Neutrophils % Seg Neuts % (Manual) Lymphocytes % (Manual) Nucleated RBC % Seg Neutrophils # Seg Neutrophils # Man Monocytes # (Manual) PT INR APTT D-Dimer Heparin Anti-Xa Level ABG pH 7.208 L ABG pO2 75.9 L ABG HCO3 ABG O2 Saturation 93.6 L ABG Base Excess -4.3 L ABG Hemoglobin 9.1 L Oxyhemoglobin 91.6 L Sodium Potassium 5.2 H D Chloride 112.6 H Carbon Dioxide BUN 32 H Creatinine Glucose 152 H POC Glucose Hemoglobin A1c Lactic Acid Calcium 8.2 L Phosphorus Magnesium 2.70 H Ferritin AST ALT Alkaline Phosphatase Lactate Dehydrogenase Troponin T C-Reactive Protein Total Protein Albumin LDL Cholesterol Direct Urine Creatinine Urine Total Protein Salicylates Acetaminophen 11/02/21 11/02/21 11/02/21 11:44 17:13 23:43 WBC RBC Hgb Hct MCH RDW Plt Count Lymph % (Auto) Lymph # (Auto) [place] # (Auto) Seg Neutrophils % Seg Neuts % (Manual) Lymphocytes % (Manual) Nucleated RBC % Seg Neutrophils # Seg Neutrophils # Man Monocytes # (Manual) PT INR APTT D-Dimer Heparin Anti-Xa Level ABG pH ABG pO2 ABG HCO3 ABG O2 Saturation ABG Base Excess ABG Hemoglobin Oxyhemoglobin Sodium Potassium Chloride Carbon Dioxide BUN Creatinine Glucose POC Glucose 173 H 148 H 137 H Hemoglobin A1c Lactic Acid Calcium Phosphorus Magnesium Ferritin AST ALT Alkaline Phosphatase Lactate Dehydrogenase Troponin T C-Reactive Protein Total Protein Albumin LDL Cholesterol Direct Urine Creatinine Urine Total Protein Salicylates Acetaminophen 11/03/21 11/03/21 11/03/21 04:59 06:00 06:00 WBC RBC 3.43 L Hgb 9.1 L Hct 29.0 L MCH 26 L RDW 16.4 H Plt Count Lymph % (Auto) Lymph # (Auto) [place] # (Auto) Seg Neutrophils % Seg Neuts % (Manual) Lymphocytes % (Manual) Nucleated RBC % Seg Neutrophils # Seg Neutrophils # Man Monocytes # (Manual) PT INR APTT D-Dimer Heparin Anti-Xa Level 0.17 L ABG pH ABG pO2 ABG HCO3 ABG O2 Saturation ABG Base Excess ABG Hemoglobin Oxyhemoglobin Sodium Potassium Chloride Carbon Dioxide BUN Creatinine Glucose POC Glucose 167 H Hemoglobin A1c Lactic Acid Calcium Phosphorus Magnesium Ferritin AST ALT Alkaline Phosphatase Lactate Dehydrogenase Troponin T C-Reactive Protein Total Protein Albumin LDL Cholesterol Direct Urine Creatinine Urine Total Protein Salicylates Acetaminophen 11/03/21 11/03/21 11/03/21 06:00 09:20 11:58 WBC RBC Hgb Hct MCH RDW Plt Count Lymph % (Auto) Lymph # (Auto) [place] # (Auto) Seg Neutrophils % Seg Neuts % (Manual) Lymphocytes % (Manual) Nucleated RBC % Seg Neutrophils # Seg Neutrophils # Man Monocytes # (Manual) PT INR APTT D-Dimer Heparin Anti-Xa Level ABG pH 7.274 L ABG pO2 75.6 L ABG HCO3 ABG O2 Saturation 94.9 L ABG Base Excess -2.5 L ABG Hemoglobin 9.3 L Oxyhemoglobin 92.9 L Sodium 149 H Potassium Chloride 117.5 H Carbon Dioxide BUN 32 H Creatinine Glucose 173 H POC Glucose 192 H Hemoglobin A1c Lactic Acid Calcium 8.1 L Phosphorus Magnesium Ferritin AST ALT Alkaline Phosphatase Lactate Dehydrogenase Troponin T C-Reactive Protein Total Protein Albumin LDL Cholesterol Direct Urine Creatinine Urine Total Protein Salicylates Acetaminophen 11/03/21 11/03/21 11/04/21 18:22 Unknown 00:09 WBC RBC Hgb Hct MCH RDW Plt Count Lymph % (Auto) Lymph # (Auto) [place] # (Auto) Seg Neutrophils % Seg Neuts % (Manual) Lymphocytes % (Manual) Nucleated RBC % Seg Neutrophils # Seg Neutrophils # Man Monocytes # (Manual) PT INR APTT D-Dimer Heparin Anti-Xa Level 0.29 L ABG pH ABG pO2 ABG HCO3 ABG O2 Saturation ABG Base Excess ABG Hemoglobin Oxyhemoglobin Sodium Potassium Chloride Carbon Dioxide BUN Creatinine Glucose POC Glucose 178 H 221 H Hemoglobin A1c Lactic Acid Calcium Phosphorus Magnesium Ferritin AST ALT Alkaline Phosphatase Lactate Dehydrogenase Troponin T C-Reactive Protein Total Protein Albumin LDL Cholesterol Direct Urine Creatinine Urine Total Protein Salicylates Acetaminophen 11/04/21 11/04/21 11/04/21 05:09 09:40 09:40 WBC 16.8 H RBC Hgb Hct MCH 27 L RDW 16.5 H Plt Count Lymph % (Auto) Lymph # (Auto) [place] # (Auto) Seg Neutrophils % Seg Neuts % (Manual) Lymphocytes % (Manual) Nucleated RBC % Seg Neutrophils # Seg Neutrophils # Man Monocytes # (Manual) PT INR APTT D-Dimer Heparin Anti-Xa Level ABG pH ABG pO2 ABG HCO3 ABG O2 Saturation ABG Base Excess ABG Hemoglobin Oxyhemoglobin Sodium Potassium 5.9 H Chloride 108.5 H Carbon Dioxide BUN 54 H Creatinine 1.8 H Glucose 198 H POC Glucose 182 H Hemoglobin A1c Lactic Acid Calcium Phosphorus Magnesium 3.00 H Ferritin AST ALT Alkaline Phosphatase Lactate Dehydrogenase Troponin T C-Reactive Protein Total Protein Albumin LDL Cholesterol Direct Urine Creatinine Urine Total Protein Salicylates Acetaminophen 11/04/21 11/04/21 11/04/21 12:13 13:34 14:05 WBC RBC Hgb Hct MCH RDW Plt Count Lymph % (Auto) Lymph # (Auto) [place] # (Auto) Seg Neutrophils % Seg Neuts % (Manual) Lymphocytes % (Manual) Nucleated RBC % Seg Neutrophils # Seg Neutrophils # Man Monocytes # (Manual) PT INR APTT D-Dimer Heparin Anti-Xa Level ABG pH 7.223 L ABG pO2 71.3 L ABG HCO3 ABG O2 Saturation 92.8 L ABG Base Excess ABG Hemoglobin 8.2 L Oxyhemoglobin 91.0 L Sodium Potassium Chloride Carbon Dioxide BUN Creatinine Glucose POC Glucose 184 H Hemoglobin A1c Lactic Acid Calcium Phosphorus Magnesium Ferritin AST ALT Alkaline Phosphatase Lactate Dehydrogenase Troponin T C-Reactive Protein Total Protein Albumin LDL Cholesterol Direct Urine Creatinine 184.6 H Urine Total Protein Salicylates Acetaminophen 11/04/21 11/04/21 11/05/21 18:02 Unknown 00:07 WBC RBC Hgb Hct MCH RDW Plt Count Lymph % (Auto) Lymph # (Auto) [place] # (Auto) Seg Neutrophils % Seg Neuts % (Manual) Lymphocytes % (Manual) Nucleated RBC % Seg Neutrophils # Seg Neutrophils # Man Monocytes # (Manual) PT INR APTT D-Dimer Heparin Anti-Xa Level ABG pH ABG pO2 ABG HCO3 ABG O2 Saturation ABG Base Excess ABG Hemoglobin Oxyhemoglobin Sodium Potassium Chloride Carbon Dioxide BUN Creatinine Glucose POC Glucose 262 H 259 H Hemoglobin A1c Lactic Acid Calcium Phosphorus Magnesium Ferritin AST ALT Alkaline Phosphatase Lactate Dehydrogenase Troponin T C-Reactive Protein Total Protein Albumin LDL Cholesterol Direct Urine Creatinine 190.9 H Urine Total Protein 172 H Salicylates Acetaminophen 11/05/21 11/05/21 11/05/21 04:20 04:20 05:30 WBC 17.9 H RBC 3.64 L Hgb 9.7 L Hct MCH 27 L RDW 16.4 H Plt Count Lymph % (Auto) Lymph # (Auto) [place] # (Auto) Seg Neutrophils % Seg Neuts % (Manual) Lymphocytes % (Manual) Nucleated RBC % Seg Neutrophils # Seg Neutrophils # Man Monocytes # (Manual) PT INR APTT D-Dimer Heparin Anti-Xa Level ABG pH ABG pO2 ABG HCO3 ABG O2 Saturation ABG Base Excess ABG Hemoglobin Oxyhemoglobin Sodium Potassium 5.6 H Chloride 108.4 H Carbon Dioxide BUN 71 H Creatinine 1.9 H Glucose 270 H POC Glucose 283 H Hemoglobin A1c Lactic Acid Calcium Phosphorus Magnesium Ferritin AST ALT Alkaline Phosphatase Lactate Dehydrogenase Troponin T C-Reactive Protein Total Protein Albumin LDL Cholesterol Direct Urine Creatinine Urine Total Protein Salicylates Acetaminophen 11/05/21 11/05/21 11/05/21 10:05 12:10 15:29 WBC RBC Hgb Hct MCH RDW Plt Count Lymph % (Auto) Lymph # (Auto) [place] # (Auto) Seg Neutrophils % Seg Neuts % (Manual) Lymphocytes % (Manual) Nucleated RBC % Seg Neutrophils # Seg Neutrophils # Man Monocytes # (Manual) PT INR APTT D-Dimer Heparin Anti-Xa Level ABG pH 7.248 L ABG pO2 73.7 L ABG HCO3 26.2 H ABG O2 Saturation 93.1 L ABG Base Excess ABG Hemoglobin 8.9 L Oxyhemoglobin 91.4 L Sodium Potassium Chloride Carbon Dioxide BUN Creatinine Glucose POC Glucose 225 H 199 H Hemoglobin A1c Lactic Acid Calcium Phosphorus Magnesium Ferritin AST ALT Alkaline Phosphatase Lactate Dehydrogenase Troponin T C-Reactive Protein Total Protein Albumin LDL Cholesterol Direct Urine Creatinine Urine Total Protein Salicylates Acetaminophen 11/05/21 11/05/21 11/05/21 15:51 17:32 17:40 WBC RBC Hgb Hct MCH RDW Plt Count Lymph % (Auto) Lymph # (Auto) [place] # (Auto) Seg Neutrophils % Seg Neuts % (Manual) Lymphocytes % (Manual) Nucleated RBC % Seg Neutrophils # Seg Neutrophils # Man Monocytes # (Manual) PT INR APTT D-Dimer Heparin Anti-Xa Level ABG pH ABG pO2 ABG HCO3 ABG O2 Saturation ABG Base Excess ABG Hemoglobin Oxyhemoglobin Sodium Potassium 5.2 H Chloride 107.8 H Carbon Dioxide BUN 79 H Creatinine 1.9 H Glucose 204 H POC Glucose 278 H 197 H Hemoglobin A1c Lactic Acid Calcium Phosphorus Magnesium Ferritin AST ALT Alkaline Phosphatase Lactate Dehydrogenase Troponin T C-Reactive Protein Total Protein Albumin LDL Cholesterol Direct Urine Creatinine Urine Total Protein Salicylates Acetaminophen 11/05/21 11/05/21 11/05/21 21:25 22:22 23:43 WBC RBC Hgb Hct MCH RDW Plt Count Lymph % (Auto) Lymph # (Auto) [place] # (Auto) Seg Neutrophils % Seg Neuts % (Manual) Lymphocytes % (Manual) Nucleated RBC % Seg Neutrophils # Seg Neutrophils # Man Monocytes # (Manual) PT INR APTT D-Dimer Heparin Anti-Xa Level ABG pH ABG pO2 ABG HCO3 ABG O2 Saturation ABG Base Excess ABG Hemoglobin Oxyhemoglobin Sodium Potassium 5.3 H Chloride 109.2 H Carbon Dioxide BUN 81 H Creatinine 2.0 H Glucose 195 H POC Glucose 180 H 203 H Hemoglobin A1c Lactic Acid Calcium Phosphorus Magnesium Ferritin AST ALT Alkaline Phosphatase Lactate Dehydrogenase Troponin T C-Reactive Protein Total Protein Albumin LDL Cholesterol Direct Urine Creatinine Urine Total Protein Salicylates Acetaminophen 11/05/21 11/06/21 11/06/21 Unknown 02:35 05:09 WBC RBC Hgb Hct MCH RDW Plt Count Lymph % (Auto) Lymph # (Auto) [place] # (Auto) Seg Neutrophils % Seg Neuts % (Manual) Lymphocytes % (Manual) Nucleated RBC % Seg Neutrophils # Seg Neutrophils # Man Monocytes # (Manual) PT INR APTT D-Dimer Heparin Anti-Xa Level ABG pH ABG pO2 ABG HCO3 ABG O2 Saturation ABG Base Excess ABG Hemoglobin Oxyhemoglobin Sodium 146 H Potassium 6.0 H Chloride 108.1 H 107.1 H Carbon Dioxide 21 L BUN 80 H 84 H Creatinine 2.0 H 2.0 H Glucose 238 H 235 H POC Glucose 215 H Hemoglobin A1c Lactic Acid Calcium Phosphorus Magnesium 2.80 H Ferritin AST ALT 77 H Alkaline Phosphatase Lactate Dehydrogenase Troponin T C-Reactive Protein Total Protein Albumin 3.0 L LDL Cholesterol Direct Urine Creatinine Urine Total Protein Salicylates Acetaminophen 11/06/21 11/06/21 11/06/21 05:40 08:07 08:07 WBC RBC Hgb Hct MCH RDW Plt Count Lymph % (Auto) Lymph # (Auto) [place] # (Auto) Seg Neutrophils % Seg Neuts % (Manual) Lymphocytes % (Manual) Nucleated RBC % Seg Neutrophils # Seg Neutrophils # Man Monocytes # (Manual) PT INR APTT D-Dimer Heparin Anti-Xa Level 1.24 H ABG pH 7.311 L ABG pO2 72.8 L ABG HCO3 29.7 H ABG O2 Saturation 94.1 L ABG Base Excess ABG Hemoglobin 11.4 L Oxyhemoglobin 92.3 L Sodium Potassium 5.2 H Chloride Carbon Dioxide BUN 85 H Creatinine 2.3 H Glucose 236 H POC Glucose Hemoglobin A1c Lactic Acid Calcium Phosphorus Magnesium Ferritin AST ALT Alkaline Phosphatase Lactate Dehydrogenase Troponin T C-Reactive Protein Total Protein Albumin LDL Cholesterol Direct Urine Creatinine Urine Total Protein Salicylates Acetaminophen 11/06/21 11/06/21 11/06/21 12:14 12:57 14:28 WBC RBC Hgb Hct MCH RDW Plt Count Lymph % (Auto) Lymph # (Auto) [place] # (Auto) Seg Neutrophils % Seg Neuts % (Manual) Lymphocytes % (Manual) Nucleated RBC % Seg Neutrophils # Seg Neutrophils # Man Monocytes # (Manual) PT INR APTT D-Dimer Heparin Anti-Xa Level ABG pH 7.282 L ABG pO2 72.6 L ABG HCO3 30.8 H ABG O2 Saturation 93.7 L ABG Base Excess 3.2 H ABG Hemoglobin 8.6 L Oxyhemoglobin 91.8 L Sodium Potassium Chloride Carbon Dioxide BUN 91 H Creatinine 2.6 H Glucose 259 H POC Glucose 225 H Hemoglobin A1c Lactic Acid Calcium Phosphorus Magnesium Ferritin AST ALT Alkaline Phosphatase Lactate Dehydrogenase Troponin T C-Reactive Protein Total Protein Albumin LDL Cholesterol Direct Urine Creatinine Urine Total Protein Salicylates Acetaminophen 11/06/21 11/06/21 11/06/21 17:28 19:20 21:30 WBC RBC Hgb Hct MCH RDW Plt Count Lymph % (Auto) Lymph # (Auto) [place] # (Auto) Seg Neutrophils % Seg Neuts % (Manual) Lymphocytes % (Manual) Nucleated RBC % Seg Neutrophils # Seg Neutrophils # Man Monocytes # (Manual) PT INR APTT D-Dimer Heparin Anti-Xa Level 0.73 H ABG pH ABG pO2 ABG HCO3 ABG O2 Saturation ABG Base Excess ABG Hemoglobin Oxyhemoglobin Sodium Potassium Chloride Carbon Dioxide BUN 95 H Creatinine 2.9 H Glucose 233 H POC Glucose 206 H Hemoglobin A1c Lactic Acid Calcium Phosphorus Magnesium Ferritin AST ALT Alkaline Phosphatase Lactate Dehydrogenase Troponin T C-Reactive Protein Total Protein Albumin LDL Cholesterol Direct Urine Creatinine Urine Total Protein Salicylates Acetaminophen 11/06/21 11/07/21 11/07/21 22:56 05:06 06:30 WBC RBC Hgb Hct MCH RDW Plt Count Lymph % (Auto) Lymph # (Auto) [place] # (Auto) Seg Neutrophils % Seg Neuts % (Manual) Lymphocytes % (Manual) Nucleated RBC % Seg Neutrophils # Seg Neutrophils # Man Monocytes # (Manual) PT INR APTT D-Dimer Heparin Anti-Xa Level ABG pH ABG pO2 ABG HCO3 ABG O2 Saturation ABG Base Excess ABG Hemoglobin Oxyhemoglobin Sodium 146 H Potassium Chloride Carbon Dioxide BUN 98 H Creatinine 2.8 H Glucose 202 H POC Glucose 215 H 172 H Hemoglobin A1c Lactic Acid Calcium Phosphorus 4.90 H D Magnesium 2.90 H Ferritin AST ALT Alkaline Phosphatase Lactate Dehydrogenase Troponin T C-Reactive Protein Total Protein Albumin LDL Cholesterol Direct Urine Creatinine Urine Total Protein Salicylates Acetaminophen 11/07/21 11/07/21 11/07/21 06:30 11:26 12:15 WBC 16.0 H RBC 3.06 L Hgb 8.2 L Hct 26.1 L MCH 27 L RDW 16.2 H Plt Count Lymph % (Auto) Lymph # (Auto) [place] # (Auto) Seg Neutrophils % Seg Neuts % (Manual) 77.0 H Lymphocytes % (Manual) 11.0 L Nucleated RBC % 2.0 H Seg Neutrophils # Seg Neutrophils # Man 12.3 H Monocytes # (Manual) PT INR APTT D-Dimer Heparin Anti-Xa Level ABG pH 7.298 L ABG pO2 73.0 L ABG HCO3 33.3 H ABG O2 Saturation 94.4 L ABG Base Excess 5.8 H ABG Hemoglobin 8.2 L Oxyhemoglobin 92.7 L Sodium Potassium Chloride Carbon Dioxide BUN Creatinine Glucose POC Glucose 179 H Hemoglobin A1c Lactic Acid Calcium Phosphorus Magnesium Ferritin AST ALT Alkaline Phosphatase Lactate Dehydrogenase Troponin T C-Reactive Protein Total Protein Albumin LDL Cholesterol Direct Urine Creatinine Urine Total Protein Salicylates Acetaminophen 11/07/21 11/07/21 11/07/21 17:57 22:16 23:49 WBC RBC Hgb Hct MCH RDW Plt Count Lymph % (Auto) Lymph # (Auto) [place] # (Auto) Seg Neutrophils % Seg Neuts % (Manual) Lymphocytes % (Manual) Nucleated RBC % Seg Neutrophils # Seg Neutrophils # Man Monocytes # (Manual) PT INR APTT D-Dimer Heparin Anti-Xa Level ABG pH ABG pO2 ABG HCO3 ABG O2 Saturation ABG Base Excess ABG Hemoglobin Oxyhemoglobin Sodium Potassium Chloride Carbon Dioxide BUN Creatinine Glucose POC Glucose 166 H 223 H 190 H Hemoglobin A1c Lactic Acid Calcium Phosphorus Magnesium Ferritin AST ALT Alkaline Phosphatase Lactate Dehydrogenase Troponin T C-Reactive Protein Total Protein Albumin LDL Cholesterol Direct Urine Creatinine Urine Total Protein Salicylates Acetaminophen 11/08/21 11/08/21 11/08/21 04:20 04:20 06:16 WBC 22.1 H RBC 3.01 L Hgb 8.1 L Hct 25.6 L MCH 27 L RDW 15.4 H Plt Count Lymph % (Auto) Lymph # (Auto) [place] # (Auto) Seg Neutrophils % Seg Neuts % (Manual) Lymphocytes % (Manual) Nucleated RBC % Seg Neutrophils # Seg Neutrophils # Man Monocytes # (Manual) PT INR APTT D-Dimer Heparin Anti-Xa Level ABG pH ABG pO2 ABG HCO3 ABG O2 Saturation ABG Base Excess ABG Hemoglobin Oxyhemoglobin Sodium 151 H Potassium 3.1 L D Chloride 107.3 H Carbon Dioxide 31 H BUN 82 H Creatinine 1.8 H Glucose 232 H POC Glucose 198 H Hemoglobin A1c Lactic Acid Calcium 8.1 L Phosphorus Magnesium Ferritin AST ALT Alkaline Phosphatase Lactate Dehydrogenase Troponin T C-Reactive Protein Total Protein Albumin LDL Cholesterol Direct Urine Creatinine Urine Total Protein Salicylates Acetaminophen
[2021-11-08] MEDS: DEXTROSE 5% IN WATER 1,000 ML IV SCH (10:25)
[2021-11-08] MEDS: HEPARIN/ 0.45% NACL DRIP 25,000 UNIT/500 ML BAG IV SCH (10:27)
--- NOTE | 2021-11-08 10:52 | Progress Note ---
<SHAMEKA JOHNSTON - Last Filed: 11/08/21 16:23> Assessment and Plan Assessment and plan: This is a 66-year-old female with past medical history of HTN and Obesity admitted for septic shock, s/p cardiac arrest with ROSC in the field now intubated and on ventilatory support Hospital Course to Date: 10/30: Intubated and sedated, on fentanyl gtt. Open eyes spontaneously but does not follow any commands. On vasopressors, titrate as tolerated for MAP above 65. Patient febrile overnight, continue empiric IV Abx, culture data and COVID PCR pending. Patient is also s/p CT placement due to spontaneous pneumothorax. 2D echo is pending and Cardiology is consulted. 10/31: Patient remains intubated and following commands. Levophed drip stopped and potassium repleted. Patient started on tube feeding. Remains in soft bilateral restraints. 11/01: RN noted ST changes on BSM and 12 lead EKG obtained which showed ST. Given Ativan 1mg for agitation as she is maxed on fentanyl drip and IV push fentanyl d id not seem to help. Patient was started on CPAP this morning by RT but remained on fentanyl drip and was having periods of apnea. Plan was to retry CPAP again in the p.m. with sedation off. 11/02: Rate increased r/t hypercapnea on ABG, sedation reduced. Given kionex for hyperkalemia and was started on levophed overnight for hypotension. 11/03: Overnight patient had tachycardia and was given Cardizem and Lopressor. Lopressor was repeated in the a.m. due to tachycardia. Patient will be started on amiodarone with a bolus per cardiology. Patient started on normal saline per liter per [facility] and steroids for angioedema. Noted to have bright red blood when suctioned from [place] ETT. Remains on heparin drip as H/H is stable for now. Will reevaluate. Fentanyl drip was restarted last night due to agitation. Dr. Flores updated family today 11/04: Patient was sedated on fentanyl however off sedation is able to follow commands, a.m. labs completed in the p.m. and show hyperkalemia with increased renal function studies. Nephrology, neurology consulted by [facility]. Given Kayexalate, insulin and D50 for hyperkalemia. Patient remains on amiodarone. 11/05: Patient needed to be sedated on fentanyl again to today. overnight krishna was replaced. Hyperkalemia->given kionex 60 for 5.6. Repeat K 6-> Dr. Grant informed and requested bumex, kionex, insulin, d50, calcium gluconate and sodium bicarb with repeat BMP in 2 hours which were placed. HR remains elevated. 11/06: Patient remained in atrial fibrillation/atrial flutter with heart rate in the 150s despite being on amnio drip and was given amnio bolus, Cardizem bolus and started on Cardizem drip by cardiology. Patient is on beta-blockers p.o. scheduled and to feedings changed to Nepro. Kayexalate was given in the morning by nephrology due to hyperkalemia. 11/07: Patient is only responsive to mild stimuli, precedex added in an attempt to wean off fentanyl gtt to better assess her mental status. Neurology also on consult, pending MRI and EEG. Patient remains in Aflutter this am, HR in the 80 to 90s, still on amiodarone and heparin gtt. 11/08: Fentanyl gtt is off, only on precedex gtt. Patient is still not following any commands. MRI brain and EEG completed. Neuro recommendations noted, sedatives agents decreased. FWF added for hypernatremia and low K repleted, repeat labs ordered. Placed a call and spoke with patient's daughter, Eva Brown . She was updated on patient's conditions and status. All questions and concerns were voiced at this time. Assessment and Plan #New Onset Atrial fibrillation/atrial flutter #HFrEF #s/p Cardiac Arrest with ROSC - Outside hospital cardiac arrest with ROSC - New onset Afib/Aflutter--> SR on the monitor this am - Cardiology consulted, appreciate recommendations - S/p Cardizem gtt- d/c due to low EF - 10/30 Echocardiogram shows left ventricular systolic function severely decreased, LVEF 25 to 30%, no pericardial effusion - Remains on Amiodarone gtt- plan to transition to PO per Cardio - Continue BB per Cardio - Continue blood pressure monitor per protocol - Off pressors; Maintain MAP above 65 - Strick I&Os and daily weight #Acute Hypoxemic Respiratory Failure #Spontaneous Pneumothorax s/p CT placement - Intubated in the filed post cardiac arrest on 10/29 - Vent Setting:PRVC-35%,8,14,500 - This Am ABG pending - CCM consulted, appreciate recommendations - VAP bundle addressed - Aspiration precaution HOB above 30 - Daily SBT and SAT trials as tolerated - Daily ABG and CXR - Continue SPO2 monitoring for SPO2 goal above 92% #Acute Metabolic Encephalopathy - Intubated and sedated, now on Precedex gtt RASS 0 to -2 - Open eyes to mild stimuli, not following commands - Neurology on consult - EEG and MRI noted, Neuro recommend to cut down on sedation as possible - Off fentanyl gtt - Titrate sedation for RASS goal of 0 to -2 - Seroquel on hold for now - Avoid benzodiazepine to reduce the possibility of delirium - Prn analgesia for CPOT greater than 3 #Acute Kidney Injury (SIERRA) most likely ATN - Due to hypoperfusion/hypotension and septic shock - Nephrology consulted, appreciate recommendations - Strict intake and output - Avoid nephrotoxic medications; Renally dose medications - Monitor and replace electrolytes as needed - Trend BMP #Septic Shock #Leukocytosis - s/p cardiac arrest with ROSC in the field - Presented febrile, with elevated lactic, leukocytosis, and hypotnesive required pressors - Now afebrile and off pressors - Blood culture, urine and sputum culture are negative - WBCs downtrending - Patient completed X5days course of IV Abx - Will continue to trend CBC #Acute BLE DVT - [place] [id number] on admit - CTA chest with no evidence of PE - 10/30 BLE doppler + acute DVT in the left posterior tibial vein and bilateral peroneal veins - Remains on Heparin gtt per protocol #Transaminitis #Shock liver - Most likely reactive s/p cardiac arrest - LFT down trending - Continue to trend LTFs #Hyperglycemia - Hbg A1C 6.7 - Continue SSI and lantus qHS - Avoid Hypoglycemia The high probability of a clinically significant, sudden or life threatening deterioration of the [multiple] system(s) required my full and direct attention, intervention and personal management. The aggregate critical care time was [90] minutes. This time is in addition to time spent performing reported procedures but includes the following: [x] Data Review and interpretation [x] Patient assessment and monitoring of vital signs [x] Documentation [x] Medication orders and management Disposition Plan: ICU Total Time Spent with Patient (Minutes): 90 History Interval history: Patient seen and examined at the bedside. Intubated and sedated, now on precedex gtt. Open eyes spontaneously but does not follow commands. Remains on heparin and amiodarone gtt. Patient is SR on the monitor this am. IAM overnight Hospitalist Physical - Constitutional Vitals: Temp Pulse Resp BP Pulse Ox 99 F 107 H 14 140/81 97 11/08/21 08:00 11/08/21 08:00 11/08/21 08:00 11/08/21 07:02 11/08/21 08:00 General appearance: Present: no acute distress, obese, other (Intubated and Sedated) - EENT Eyes: Present: PERRL - Respiratory Respiratory effort: normal Respiratory: bilateral: rhonchi - Cardiovascular Rhythm: regular Heart Sounds: Present: S1 & S2 - Extremities Extremities: no ischemia, pulses intact, pulses symmetrical Extremity abnormal: edema - Peripheral Assessment Generalized Edema Type: Non-pitting Edema Degree: 2+ Capillary Refill: < 3 seconds Skin Temperature: Warm Peripheral Pulses: within normal limits - Abdominal General gastrointestinal: soft, non-distended, normal bowel sounds - Integumentary Integumentary: Present: warm, dry - Psychiatric Psychiatric: other (Intubated and Sedated) - Neurologic Neurologic: other (Intubated and Sedated) - Allied Health Allied health notes reviewed: nursing HEART Score - HEART Score Troponin: Troponin T 1.150 ng/mL (0.00-0.029) H* D 10/29/21 22:34 Results - Labs CBC & Chem 7: 11/08/21 04:20 11/08/21 12:00 Labs: Laboratory Last Values WBC 22.1 K/mm3 (4.5-11.0) H 11/08/21 04:20 RBC 3.01 M/mm3 (3.65-5.03) L 11/08/21 04:20 Hgb 8.1 gm/dl (10.1-14.3) L 11/08/21 04:20 Hct 25.6 % (30.3-42.9) L 11/08/21 04:20 MCV 85 fl (79-97) 11/08/21 04:20 MCH 27 pg (28-32) L 11/08/21 04:20 MCHC 32 % (30-34) 11/08/21 04:20 RDW 15.4 % (13.2-15.2) H 11/08/21 04:20 Plt Count 237 K/mm3 (140-440) 11/08/21 04:20 Lymph % (Auto) 6.2 % (13.4-35.0) L 10/30/21 04:30 [place] % (Auto) 5.5 % (0.0-7.3) 10/30/21 04:30 Eos % (Auto) 0.1 % (0.0-4.3) 10/30/21 04:30 Baso % (Auto) 0.1 % (0.0-1.8) 10/30/21 04:30 Lymph # (Auto) 1.0 K/mm3 (1.2-5.4) L 10/30/21 04:30 [place] # (Auto) 0.9 K/mm3 (0.0-0.8) H 10/30/21 04:30 Eos # (Auto) 0.0 K/mm3 (0.0-0.4) 10/30/21 04:30 Baso # (Auto) 0.0 K/mm3 (0.0-0.1) 10/30/21 04:30 Add Manual Diff Complete 11/07/21 06:30 Total Counted 100 11/07/21 06:30 Seg Neutrophils % 88.1 % (40.0-70.0) H 10/30/21 04:30 Seg Neuts % (Manual) 77.0 % (40.0-70.0) H 11/07/21 06:30 Band Neutrophils % 1.0 % 11/07/21 06:30 Lymphocytes % (Manual) 11.0 % (13.4-35.0) L 11/07/21 06:30 Reactive Lymphs % (Man) 3.0 % 11/07/21 06:30 Monocytes % (Manual) 2.0 % (0.0-7.3) 11/07/21 06:30 Eosinophils % (Manual) 0 % (0.0-4.3) 11/07/21 06:30 Basophils % (Manual) 0 % (0.0-1.8) 11/07/21 06:30 Metamyelocytes % 1.0 % 11/07/21 06:30 Myelocytes % 5.0 % 11/07/21 06:30 Promyelocytes % 0 % 11/07/21 06:30 Blast Cells % 0 % 11/07/21 06:30 Nucleated RBC % 2.0 % (0.0-0.9) H 11/07/21 06:30 Seg Neutrophils # 14.2 K/mm3 (1.8-7.7) H 10/30/21 04:30 Seg Neutrophils # Man 12.3 K/mm3 (1.8-7.7) H 11/07/21 06:30 Band Neutrophils # 0.2 K/mm3 11/07/21 06:30 Lymphocytes # (Manual) 1.8 K/mm3 (1.2-5.4) 11/07/21 06:30 Abs React Lymphs (Man) 0.5 K/mm3 11/07/21 06:30 Monocytes # (Manual) 0.3 K/mm3 (0.0-0.8) 11/07/21 06:30 Eosinophils # (Manual) 0.0 K/mm3 (0.0-0.4) 11/07/21 06:30 Basophils # (Manual) 0.0 K/mm3 (0.0-0.1) 11/07/21 06:30 Metamyelocytes # 0.2 K/mm3 11/07/21 06:30 Myelocytes # 0.8 K/mm3 11/07/21 06:30 Promyelocytes # 0.0 K/mm3 11/07/21 06:30 Blast Cells # 0.0 K/mm3 11/07/21 06:30 WBC Morphology Not Reportable 11/07/21 06:30 Hypersegmented Neuts Not Reportable 11/07/21 06:30 Hyposegmented Neuts Not Reportable 11/07/21 06:30 Hypogranular Neuts Not Reportable 11/07/21 06:30 Smudge Cells Not Reportable 11/07/21 06:30 Toxic Granulation Not Reportable 11/07/21 06:30 Toxic Vacuolation Not Reportable 11/07/21 06:30 Dohle Bodies Not Reportable 11/07/21 06:30 Pelger-Huet Anomaly Not Reportable 11/07/21 06:30 Manny Rods Not Reportable 11/07/21 06:30 Platelet Estimate Consistent w auto 11/07/21 06:30 Clumped Platelets Not Reportable 11/07/21 06:30 Plt Clumps, EDTA Not Reportable 11/07/21 06:30 Large Platelets 1+ 11/07/21 06:30 Giant Platelets Not Reportable 11/07/21 06:30 Platelet Satelliting Not Reportable 11/07/21 06:30 Plt Morphology Comment Not Reportable 11/07/21 06:30 RBC Morphology Not Reportable 11/07/21 06:30 Dimorphic RBCs Not Reportable 11/07/21 06:30 Polychromasia Not Reportable 11/07/21 06:30 Hypochromasia 1+ 11/07/21 06:30 Poikilocytosis Not Reportable 11/07/21 06:30 Anisocytosis Not Reportable 11/07/21 06:30 Microcytosis Not Reportable 11/07/21 06:30 Macrocytosis Not Reportable 11/07/21 06:30 Spherocytes 1+ 11/07/21 06:30 Pappenheimer Bodies Not Reportable 11/07/21 06:30 Sickle Cells Not Reportable 11/07/21 06:30 Target Cells 1+ 11/07/21 06:30 Tear Drop Cells Not Reportable 11/07/21 06:30 Ovalocytes Not Reportable 11/07/21 06:30 Helmet Cells Not Reportable 11/07/21 06:30 [place] Bodies Not Reportable 11/07/21 06:30 [place] Rings Not Reportable 11/07/21 06:30 [place] Cells Not Reportable 11/07/21 06:30 Bite Cells Not Reportable 11/07/21 06:30 Crenated Cell Not Reportable 11/07/21 06:30 Elliptocytes Not Reportable 11/07/21 06:30 Acanthocytes (Spur) Not Reportable 11/07/21 06:30 Rouleaux Not Reportable 11/07/21 06:30 Hemoglobin C Crystals Not Reportable 11/07/21 06:30 Schistocytes Not Reportable 11/07/21 06:30 Malaria parasites Not Reportable 11/07/21 06:30 Magdy Bodies Not Reportable 11/07/21 06:30 Hem Pathologist Commnt No 11/07/21 06:30 PT 17.2 Sec. (12.2-14.9) H 10/30/21 16:30 INR 1.27 (0.87-1.13) H 10/30/21 16:30 APTT 44.4 Sec. (24.2-36.6) H 10/30/21 16:30 D-Dimer > 89328 ng/mlDDU (0-234) H 10/30/21 Unknown Heparin Anti-Xa Level 0.33 U.I./ml (0.3-0.7) 11/08/21 04:20 ABG pH 7.298 pH Units (7.350-7.450) L 11/07/21 12:15 ABG pCO2 69.6 mm Hg 11/07/21 12:15 ABG pO2 73.0 mm Hg (80.0-90.0) L 11/07/21 12:15 ABG HCO3 33.3 mmol/L (20.0-26.0) H 11/07/21 12:15 ABG O2 Saturation 94.4 % (95.0-99.0) L 11/07/21 12:15 ABG O2 Content 10.7 (0.0-44) 11/07/21 12:15 ABG Base Excess 5.8 mmol/L (-2.0-3.0) H 11/07/21 12:15 ABG Hemoglobin 8.2 gm/dl (12.0-16.0) L 11/07/21 12:15 ABG Carboxyhemoglobin 1.4 % (0.0-5.0) 11/07/21 12:15 ABG Methemoglobin 0.4 % (0.0-1.5) 11/07/21 12:15 Oxyhemoglobin 92.7 % (95.0-99.0) L 11/07/21 12:15 FiO2 35 % 11/07/21 12:15 Sodium 151 mmol/L (137-145) H 11/08/21 04:20 Potassium 3.1 mmol/L (3.6-5.0) L D 11/08/21 04:20 Chloride 107.3 mmol/L (98-107) H 11/08/21 04:20 Carbon Dioxide 31 mmol/L (22-30) H 11/08/21 04:20 Anion Gap 16 mmol/L 11/08/21 04:20 BUN 82 mg/dL (7-17) H 11/08/21 04:20 Creatinine 1.8 mg/dL (0.6-1.2) H 11/08/21 04:20 Estimated GFR 34 ml/min 11/08/21 04:20 BUN/Creatinine Ratio 46 % 11/08/21 04:20 Glucose 232 mg/dL (65-100) H 11/08/21 04:20 POC Glucose 198 mg/dL (70-105) H 11/08/21 06:16 Hemoglobin A1c 6.7 % (4-6) H 10/31/21 04:30 Lactic Acid 0.70 mmol/L (0.7-2.0) 10/31/21 15:45 Calcium 8.1 mg/dL (8.4-10.2) L 11/08/21 04:20 Phosphorus 4.90 mg/dL (2.5-4.5) H D 11/07/21 06:30 Magnesium 2.90 mg/dL (1.7-2.3) H 11/07/21 06:30 Ferritin 208.4 ng/mL (10.0-200.0) H 10/30/21 Unknown Total Bilirubin < 0.20 mg/dL (0.1-1.2) 11/06/21 02:35 AST 21 units/L (5-40) 11/06/21 02:35 ALT 77 units/L (7-56) H 11/06/21 02:35 Alkaline Phosphatase 84 units/L (35-129) 11/06/21 02:35 Ammonia 31.0 umol/L (25-60) 10/29/21 15:10 Lactate Dehydrogenase 469 units/L (91-180) H 10/30/21 Unknown Troponin T 1.150 ng/mL (0.00-0.029) H* D 10/29/21 22:34 C-Reactive Protein 13.40 mg/dL (0.00-1.30) H 10/30/21 Unknown Total Protein 6.3 g/dL (6.3-8.2) 11/06/21 02:35 Albumin 3.0 g/dL (3.9-5) L 11/06/21 02:35 Albumin/Globulin Ratio 0.9 % 11/06/21 02:35 Triglycerides 68 mg/dL (2-149) 10/29/21 19:40 Cholesterol 98 mg/dL (50-199) 10/29/21 19:40 LDL Cholesterol Direct 43 mg/dL (50-130) L 10/29/21 19:40 HDL Cholesterol 50 mg/dL (40-59) 10/29/21 19:40 Cholesterol/HDL Ratio 1.96 % 10/29/21 19:40 Procalcitonin 61.95 ng/mL (<0.15) 10/30/21 Unknown TSH 3.080 mlU/mL (0.270-4.200) 10/29/21 15:10 Urine Color Straw (Yellow) 10/29/21 18:15 Urine Turbidity Clear (Clear) 10/29/21 18:15 Urine pH 7.0 (5.0-7.0) 10/29/21 18:15 Ur Specific [place] 1.018 (1.003-1.030) 10/29/21 18:15 Urine Protein 100 mg/dl mg/dL (Negative) 10/29/21 18:15 Urine Glucose (UA) 150 mg/dL (Negative) 10/29/21 18:15 Urine Ketones Neg mg/dL (Negative) 10/29/21 18:15 Urine Blood Mod (Negative) 10/29/21 18:15 Urine Nitrite Neg (Negative) 10/29/21 18:15 Urine Bilirubin Neg (Negative) 10/29/21 18:15 Urine Urobilinogen < 2.0 mg/dL (<2.0) 10/29/21 18:15 Ur Leukocyte Esterase Neg (Negative) 10/29/21 18:15 Urine WBC (Auto) 5.0 /HPF (0.0-6.0) 10/29/21 18:15 Urine RBC (Auto) 2.0 /HPF (0.0-6.0) 10/29/21 18:15 U Epithel Cells (Auto) < 1.0 /HPF (0-13.0) 10/29/21 18:15 Urine Mucus Few /HPF 10/29/21 18:15 Urine Eosinophils None seen (None Seen) 11/04/21 Unknown Urine Creatinine 190.9 mg/dL (0.1-20.0) H 11/04/21 Unknown Protein/Creatinin Ratio 0.90 11/04/21 Unknown Urine Sodium 10 mmol/L 11/04/21 Unknown Urine Total Protein 172 mg/dL (5-11.8) H 11/04/21 Unknown Salicylates < 0.3 mg/dL (2.8-20.0) L 10/29/21 15:10 Urine Opiates Screen Negative 10/29/21 18:15 Urine Methadone Screen Negative 10/29/21 18:15 Acetaminophen 5.0 ug/mL (10.0-30.0) L 10/29/21 15:10 Ur Barbiturates Screen Negative 10/29/21 18:15 Ur Phencyclidine Scrn Negative 10/29/21 18:15 Ur Amphetamines Screen Negative 10/29/21 18:15 U Benzodiazepines Scrn Negative 10/29/21 18:15 Urine Cocaine Screen Negative 10/29/21 18:15 U Marijuana (THC) Screen Negative 10/29/21 18:15 Drugs of Abuse Note Disclamer 10/29/21 18:15 Plasma/Serum Alcohol < 0.01 % (0-0.07) 10/29/21 15:10 Coronavirus (PCR) Negative (Negative) 10/30/21 Unknown Blood Type O POSITIVE 10/29/21 15:10 Antibody Screen Negative 10/29/21 15:10 Krishna/IV: Voiding Method Indwelling Catheter Active Medications - Current Medications Current Medications: Generic Name Dose Route Start Last Admin Trade Name Freq PRN Reason Stop Dose Admin Acetaminophen 650 mg 10/29/21 17:04 11/03/21 11:35 Acetaminophen 325 Mg Tab PO 650 mg Q6H PRN Administration Pain, Mild (1-3) Acetaminophen 650 mg 10/29/21 17:04 Acetaminophen 650 Mg Rect Supp TN Q6H PRN Pain MILD(1-3)/Fever >100.5/NIEVES Amiodarone HCl 200 mg 11/08/21 10:00 11/08/21 10:10 Amiodarone 200 Mg Tab PO 200 mg QDAY RAMON Administration Lipase/Protease/Amylase 1 each 10/31/21 08:56 Lipase 10,500/Protease 25,000/Amylase 43,750 (Units) Dr Ivory FEEDTUBE PRN PRN For Clogged Feeding Tube Dextrose 0 ml 11/04/21 13:48 11/05/21 15:29 Dextrose 10% *Hypoglycemia IV 250 ml PRN PRN Administration Hypoglycemia Famotidine 10 mg 11/06/21 10:00 11/08/21 09:30 Famotidine 10 Mg Tab PO 10 mg BID RAMON Administration Fentanyl 50 mcg 11/04/21 14:32 11/06/21 08:36 Fentanyl 100 Mcg/2 Ml Inj IV 50 mcg Q2H PRN Administration Pain, Moderate (4-6) Heparin Sodium (Porcine) 4,300 unit 10/30/21 17:00 Heparin 10,000 Units/10 Ml Vial 40 unit/kg (4300 unit) IV Q6H PRN Anti-Xa Assay < 0.1 units/ml Hydralazine HCl 25 mg 11/08/21 10:00 11/08/21 10:10 Hydralazine 25 Mg Tab PO 25 mg Q8HR RAMON Administration Hydrophilic Ointment 1 applic 10/29/21 14:29 Lip Therapy Vaseline TP Q2HR PRN Dry Lips Fentanyl Citrate 2,000 mcg in 100 mls @ 5.67 mls/hr 10/29/21 15:00 11/07/21 13:44 Fentanyl Drip Premix IV 4 mcg/kg/hr TITR RAMON 22.68 mls/hr Administration Protocol 1 MCG/KG/HR NORepinephrine/NS 8 MG-250 ML 8 mg in 250 mls @ 3.75 mls/hr 10/29/21 15:00 11/04/21 07:00 Norepinephrine/Ns 8 Mg-250 Ml (Double Conc) IV 0 mcg/min TITRATE RAMON 0 mls/hr Titration Protocol 2 MCG/MIN Heparin Sodium/Sodium Chloride 25,000 unit in 500 mls @ 30 mls/hr 10/30/21 17:00 11/08/21 10:27 Heparin/ 0.45% Nacl-25,000 Unit/500 Ml IV 1,400 units/hr TITR RAMON 28 mls/hr Administration Protocol 1,500 UNITS/HR Dexmedetomidine HCl 200 mcg/ 50 mls @ 5.335 mls/hr 11/07/21 15:00 11/08/21 05:44 Sodium Chloride IV 0.4 mcg/kg/hr TITRATE RAMON 10.67 mls/hr Administration Protocol 0.2 MCG/KG/HR Dextrose 1,000 mls @ 75 mls/hr 11/08/21 11:00 11/08/21 10:25 D5w IV 75 mls/hr DIRECT RAMON Administration Insulin Glargine 10 units 11/05/21 22:00 11/07/21 22:20 Insulin Glargine 100 Units/Ml SUB-Q 10 units QHS RAMON Administration Insulin Human Lispro 0 unit 10/30/21 16:00 11/08/21 06:16 Insulin Lispro 100 Unit/Ml SUB-Q 3 unit Q6HR RAMON Administration Protocol Isosorbide Mononitrate 30 mg 11/08/21 10:00 11/08/21 10:10 Isosorbide Mononitrate Er 30 Mg Tab PO 30 mg QDAY RAMON Administration Metoprolol Tartrate 50 mg 11/07/21 12:00 11/08/21 06:17 Metoprolol Tartrate 50 Mg Tab FEEDTUBE 50 mg Q6H RAMON Administration Multi-Ingred Cream/Lotion/Oil/Oint 1 applic 10/29/21 14:29 11/06/21 09:25 Mineral Oil/Petrolatum, White Ophth Oint 3.5 Gm OU 1 applic Q4HR PRN Administration Dry Eye(s) Quetiapine Fumarate 100 mg 11/05/21 22:00 11/07/21 22:20 Quetiapine 100 Mg Tab PO 100 mg QHS RAMON Administration Quetiapine Fumarate 75 mg 11/06/21 10:00 11/08/21 09:30 Quetiapine 25 Mg Tab PO 75 mg QAM RAMON Administration Senna/Docusate Sodium 1 tab 10/29/21 15:00 11/08/21 09:30 Sennosides/Docusate Sodium 8.6/50 Mg Tab FEEDTUBE 1 tab BID RAMON Administration Simple Syrup 15 ml 10/31/21 08:56 Simple Syrup 15 Ml FEEDTUBE PRN PRN Hypoglycemia Simple Syrup 30 ml 10/31/21 08:56 Simple Syrup 15 Ml FEEDTUBE PRN PRN Hypoglycemia Sodium Bicarbonate 325 mg 10/31/21 08:56 Sodium Bicarbonate 325 Mg Tab FEEDTUBE PRN PRN For Clogged Feeding Tube Sodium Chloride 10 ml 10/29/21 22:00 11/08/21 09:31 Sodium Chloride 0.9% 10 Ml Flush Syringe IV 10 ml BID RAMON Administration Sodium Chloride 10 ml 10/29/21 17:04 Sodium Chloride 0.9% 10 Ml Flush Syringe IV PRN PRN LINE FLUSH Nutrition/Malnutrition Assess - Dietary Evaluation Nutrition/Malnutrition Findings: Nutrition Notes Start: 10/30/21 09:50 Freq: Status: Active Protocol: Document 11/08/21 09:54 MEENU (Rec: 11/08/21 10:20 MEENU [id number]) Nutrition Notes Initial or Follow up Reassessment Current Diagnosis Acute Kidney Injury,Sepsis, Heart Failure,Respiratory Failure Other Pertinent Diagnosis SIERRA/ATN, s/p Cardiac Arrest, DVT, Anemia, Hyperkalemia. Current Diet TF-Nepro w/CARBSTEADY @ 37 ml/ hr (since D 11/06). Labs/Tests 11/08: Na 151, K 3.1, Cl 107.3 , CO2 31, BUN 82, Crea 1.8, Glu 232, Ca 8.1. Pertinent Medications 11/08: Insulin, others nutritionally unremarkable. Height 5 ft 10 in Weight 106.7 kg Lam[place] Body Weight (kg) 68.18 BMI 33.7 Weight change and time frame No body weight change reported in 1 week. Weight Status Obese Subjective/Other Information RD consult for routine F/U on TF tolerance. TF continues as prescribed and well tolerated, according to RN over the phone. Pt continues on Mechanical ventilation. Percent of energy/protein needs met: Prescribed Nepro w/CARBSTEADY @ 37 ml/hr provides for energy /protein needs (1,598 Kcal/72 g) during LOS, 100% Kcal; 100% AA. Burn Absent Trauma Absent GI Symptoms None Food Allergy No Skin Integrity/Comment Clear, warm, dry. Current % PO Other Minimum of two criteria No #1 Nutrition Diagnosis Inadequate oral intake Diagnosis Progress(for reassessment Continues documentation) Is patient on ventilator? Yes Is Patient Ambulatory and/or Out of Bed No REE-([facility]-confined to bed) 2022.848 Kcal/Kg value to use for calculation 15 Approximate Energy Requirements Using 1601 kcal/Kg Calculation Used for Recommendations Kcal/kg Additional Notes Protein: 0.8-1.2 g/Kg IBW; 70- 105 g/day. Fluids: 1 ml/Kcal, or as per MD. Nutrition Intervention Nutrition Support: Continue Nepro w/CARBSTEADY @ 37 ml/hr. Flush: 160 ml water Q 4 hr, or as per MD. Kcal 1,598 Protein (gm) 72 Carbohydrates (gm) 143 Fat (gm) 85 Fluid (mL) 646 Fiber (gm) 11 % RDI: 100% Kcal; 100% AA. Goal #1 Provide at least 75% of energy /protein needs through Enteral Feeding during LOS. Goal #2 Maintain body weight within +/ -3% of admission body weight during LOS. Follow-Up By: 11/15/21 Additional Comments Continue monitoring TF tolerance and BM. <ABRAM DIAS - Last Filed: 11/09/21 07:24> Assessment and Plan Assessment and plan: I saw and evaluated the patient. I agree with the findings and the plan of care as documented in the Nurse Practitioner's~note, with the following corrections and additions. Hospitalist Physical - Constitutional Vitals: Temp Pulse Resp BP Pulse Ox 99.2 F 68 19 175/91 96 11/09/21 07:16 11/09/21 06:30 11/09/21 06:30 11/09/21 06:30 11/09/21 06:30 HEART Score - HEART Score Troponin: Troponin T 1.150 ng/mL (0.00-0.029) H* D 10/29/21 22:34 Results - Labs CBC & Chem 7: 11/08/21 04:20 11/08/21 21:40 Labs: Laboratory Last Values WBC 22.1 K/mm3 (4.5-11.0) H 11/08/21 04:20 RBC 3.01 M/mm3 (3.65-5.03) L 11/08/21 04:20 Hgb 8.1 gm/dl (10.1-14.3) L 11/08/21 04:20 Hct 25.6 % (30.3-42.9) L 11/08/21 04:20 MCV 85 fl (79-97) 11/08/21 04:20 MCH 27 pg (28-32) L 11/08/21 04:20 MCHC 32 % (30-34) 11/08/21 04:20 RDW 15.4 % (13.2-15.2) H 11/08/21 04:20 Plt Count 237 K/mm3 (140-440) 11/08/21 04:20 Lymph % (Auto) 6.2 % (13.4-35.0) L 10/30/21 04:30 [place] % (Auto) 5.5 % (0.0-7.3) 10/30/21 04:30 Eos % (Auto) 0.1 % (0.0-4.3) 10/30/21 04:30 Baso % (Auto) 0.1 % (0.0-1.8) 10/30/21 04:30 Lymph # (Auto) 1.0 K/mm3 (1.2-5.4) L 10/30/21 04:30 [place] # (Auto) 0.9 K/mm3 (0.0-0.8) H 10/30/21 04:30 Eos # (Auto) 0.0 K/mm3 (0.0-0.4) 10/30/21 04:30 Baso # (Auto) 0.0 K/mm3 (0.0-0.1) 10/30/21 04:30 Add Manual Diff Complete 11/07/21 06:30 Total Counted 100 11/07/21 06:30 Seg Neutrophils % 88.1 % (40.0-70.0) H 10/30/21 04:30 Seg Neuts % (Manual) 77.0 % (40.0-70.0) H 11/07/21 06:30 Band Neutrophils % 1.0 % 11/07/21 06:30 Lymphocytes % (Manual) 11.0 % (13.4-35.0) L 11/07/21 06:30 Reactive Lymphs % (Man) 3.0 % 11/07/21 06:30 Monocytes % (Manual) 2.0 % (0.0-7.3) 11/07/21 06:30 Eosinophils % (Manual) 0 % (0.0-4.3) 11/07/21 06:30 Basophils % (Manual) 0 % (0.0-1.8) 11/07/21 06:30 Metamyelocytes % 1.0 % 11/07/21 06:30 Myelocytes % 5.0 % 11/07/21 06:30 Promyelocytes % 0 % 11/07/21 06:30 Blast Cells % 0 % 11/07/21 06:30 Nucleated RBC % 2.0 % (0.0-0.9) H 11/07/21 06:30 Seg Neutrophils # 14.2 K/mm3 (1.8-7.7) H 10/30/21 04:30 Seg Neutrophils # Man 12.3 K/mm3 (1.8-7.7) H 11/07/21 06:30 Band Neutrophils # 0.2 K/mm3 11/07/21 06:30 Lymphocytes # (Manual) 1.8 K/mm3 (1.2-5.4) 11/07/21 06:30 Abs React Lymphs (Man) 0.5 K/mm3 11/07/21 06:30 Monocytes # (Manual) 0.3 K/mm3 (0.0-0.8) 11/07/21 06:30 Eosinophils # (Manual) 0.0 K/mm3 (0.0-0.4) 11/07/21 06:30 Basophils # (Manual) 0.0 K/mm3 (0.0-0.1) 11/07/21 06:30 Metamyelocytes # 0.2 K/mm3 11/07/21 06:30 Myelocytes # 0.8 K/mm3 11/07/21 06:30 Promyelocytes # 0.0 K/mm3 11/07/21 06:30 Blast Cells # 0.0 K/mm3 11/07/21 06:30 WBC Morphology Not Reportable 11/07/21 06:30 Hypersegmented Neuts Not Reportable 11/07/21 06:30 Hyposegmented Neuts Not Reportable 11/07/21 06:30 Hypogranular Neuts Not Reportable 11/07/21 06:30 Smudge Cells Not Reportable 11/07/21 06:30 Toxic Granulation Not Reportable 11/07/21 06:30 Toxic Vacuolation Not Reportable 11/07/21 06:30 Dohle Bodies Not Reportable 11/07/21 06:30 Pelger-Huet Anomaly Not Reportable 11/07/21 06:30 Manny Rods Not Reportable 11/07/21 06:30 Platelet Estimate Consistent w auto 11/07/21 06:30 Clumped Platelets Not Reportable 11/07/21 06:30 Plt Clumps, EDTA Not Reportable 11/07/21 06:30 Large Platelets 1+ 11/07/21 06:30 Giant Platelets Not Reportable 11/07/21 06:30 Platelet Satelliting Not Reportable 11/07/21 06:30 Plt Morphology Comment Not Reportable 11/07/21 06:30 RBC Morphology Not Reportable 11/07/21 06:30 Dimorphic RBCs Not Reportable 11/07/21 06:30 Polychromasia Not Reportable 11/07/21 06:30 Hypochromasia 1+ 11/07/21 06:30 Poikilocytosis Not Reportable 11/07/21 06:30 Anisocytosis Not Reportable 11/07/21 06:30 Microcytosis Not Reportable 11/07/21 06:30 Macrocytosis Not Reportable 11/07/21 06:30 Spherocytes 1+ 11/07/21 06:30 Pappenheimer Bodies Not Reportable 11/07/21 06:30 Sickle Cells Not Reportable 11/07/21 06:30 Target Cells 1+ 11/07/21 06:30 Tear Drop Cells Not Reportable 11/07/21 06:30 Ovalocytes Not Reportable 11/07/21 06:30 Helmet Cells Not Reportable 11/07/21 06:30 [place] Bodies Not Reportable 11/07/21 06:30 [place] Rings Not Reportable 11/07/21 06:30 [place] Cells Not Reportable 11/07/21 06:30 Bite Cells Not Reportable 11/07/21 06:30 Crenated Cell Not Reportable 11/07/21 06:30 Elliptocytes Not Reportable 11/07/21 06:30 Acanthocytes (Spur) Not Reportable 11/07/21 06:30 Rouleaux Not Reportable 11/07/21 06:30 Hemoglobin C Crystals Not Reportable 11/07/21 06:30 Schistocytes Not Reportable 11/07/21 06:30 Malaria parasites Not Reportable 11/07/21 06:30 Magdy Bodies Not Reportable 11/07/21 06:30 Hem Pathologist Commnt No 11/07/21 06:30 PT 17.2 Sec. (12.2-14.9) H 10/30/21 16:30 INR 1.27 (0.87-1.13) H 10/30/21 16:30 APTT 44.4 Sec. (24.2-36.6) H 10/30/21 16:30 D-Dimer > 95497 ng/mlDDU (0-234) H 10/30/21 Unknown Heparin Anti-Xa Level 0.33 U.I./ml (0.3-0.7) 11/08/21 04:20 ABG pH 7.298 pH Units (7.350-7.450) L 11/07/21 12:15 ABG pCO2 69.6 mm Hg 11/07/21 12:15 ABG pO2 73.0 mm Hg (80.0-90.0) L 11/07/21 12:15 ABG HCO3 33.3 mmol/L (20.0-26.0) H 11/07/21 12:15 ABG O2 Saturation 94.4 % (95.0-99.0) L 11/07/21 12:15 ABG O2 Content 10.7 (0.0-44) 11/07/21 12:15 ABG Base Excess 5.8 mmol/L (-2.0-3.0) H 11/07/21 12:15 ABG Hemoglobin 8.2 gm/dl (12.0-16.0) L 11/07/21 12:15 ABG Carboxyhemoglobin 1.4 % (0.0-5.0) 11/07/21 12:15 ABG Methemoglobin 0.4 % (0.0-1.5) 11/07/21 12:15 Oxyhemoglobin 92.7 % (95.0-99.0) L 11/07/21 12:15 FiO2 35 % 11/07/21 12:15 Sodium 148 mmol/L (137-145) H 11/08/21 21:40 Potassium 2.8 mmol/L (3.6-5.0) L* 11/08/21 21:40 Chloride 106.4 mmol/L (98-107) 11/08/21 21:40 Carbon Dioxide 31 mmol/L (22-30) H 11/08/21 21:40 Anion Gap 13 mmol/L 11/08/21 21:40 BUN 68 mg/dL (7-17) H 11/08/21 21:40 Creatinine 1.5 mg/dL (0.6-1.2) H 11/08/21 21:40 Estimated GFR 42 ml/min 11/08/21 21:40 BUN/Creatinine Ratio 45 % 11/08/21 21:40 Glucose 191 mg/dL (65-100) H 11/08/21 21:40 POC Glucose 166 mg/dL (70-105) H 11/09/21 05:52 Hemoglobin A1c 6.7 % (4-6) H 10/31/21 04:30 Lactic Acid 0.70 mmol/L (0.7-2.0) 10/31/21 15:45 Calcium 8.2 mg/dL (8.4-10.2) L 11/08/21 21:40 Phosphorus 3.10 mg/dL (2.5-4.5) 11/08/21 21:40 Magnesium 2.20 mg/dL (1.7-2.3) 11/08/21 21:40 Ferritin 208.4 ng/mL (10.0-200.0) H 10/30/21 Unknown Total Bilirubin < 0.20 mg/dL (0.1-1.2) 11/06/21 02:35 AST 21 units/L (5-40) 11/06/21 02:35 ALT 77 units/L (7-56) H 11/06/21 02:35 Alkaline Phosphatase 84 units/L (35-129) 11/06/21 02:35 Ammonia 31.0 umol/L (25-60) 10/29/21 15:10 Lactate Dehydrogenase 469 units/L (91-180) H 10/30/21 Unknown Troponin T 1.150 ng/mL (0.00-0.029) H* D 10/29/21 22:34 C-Reactive Protein 13.40 mg/dL (0.00-1.30) H 10/30/21 Unknown Total Protein 6.3 g/dL (6.3-8.2) 11/06/21 02:35 Albumin 3.0 g/dL (3.9-5) L 11/06/21 02:35 Albumin/Globulin Ratio 0.9 % 11/06/21 02:35 Triglycerides 68 mg/dL (2-149) 10/29/21 19:40 Cholesterol 98 mg/dL (50-199) 10/29/21 19:40 LDL Cholesterol Direct 43 mg/dL (50-130) L 10/29/21 19:40 HDL Cholesterol 50 mg/dL (40-59) 10/29/21 19:40 Cholesterol/HDL Ratio 1.96 % 10/29/21 19:40 Procalcitonin 61.95 ng/mL (<0.15) 10/30/21 Unknown TSH 3.080 mlU/mL (0.270-4.200) 10/29/21 15:10 Urine Color Straw (Yellow) 10/29/21 18:15 Urine Turbidity Clear (Clear) 10/29/21 18:15 Urine pH 7.0 (5.0-7.0) 10/29/21 18:15 Ur Specific [place] 1.018 (1.003-1.030) 10/29/21 18:15 Urine Protein 100 mg/dl mg/dL (Negative) 10/29/21 18:15 Urine Glucose (UA) 150 mg/dL (Negative) 10/29/21 18:15 Urine Ketones Neg mg/dL (Negative) 10/29/21 18:15 Urine Blood Mod (Negative) 10/29/21 18:15 Urine Nitrite Neg (Negative) 10/29/21 18:15 Urine Bilirubin Neg (Negative) 10/29/21 18:15 Urine Urobilinogen < 2.0 mg/dL (<2.0) 10/29/21 18:15 Ur Leukocyte Esterase Neg (Negative) 10/29/21 18:15 Urine WBC (Auto) 5.0 /HPF (0.0-6.0) 10/29/21 18:15 Urine RBC (Auto) 2.0 /HPF (0.0-6.0) 10/29/21 18:15 U Epithel Cells (Auto) < 1.0 /HPF (0-13.0) 10/29/21 18:15 Urine Mucus Few /HPF 10/29/21 18:15 Urine Eosinophils None seen (None Seen) 11/04/21 Unknown Urine Creatinine 190.9 mg/dL (0.1-20.0) H 11/04/21 Unknown Protein/Creatinin Ratio 0.90 11/04/21 Unknown Urine Sodium 10 mmol/L 11/04/21 Unknown Urine Total Protein 172 mg/dL (5-11.8) H 11/04/21 Unknown Salicylates < 0.3 mg/dL (2.8-20.0) L 10/29/21 15:10 Urine Opiates Screen Negative 10/29/21 18:15 Urine Methadone Screen Negative 10/29/21 18:15 Acetaminophen 5.0 ug/mL (10.0-30.0) L 10/29/21 15:10 Ur Barbiturates Screen Negative 10/29/21 18:15 Ur Phencyclidine Scrn Negative 10/29/21 18:15 Ur Amphetamines Screen Negative 10/29/21 18:15 U Benzodiazepines Scrn Negative 10/29/21 18:15 Urine Cocaine Screen Negative 10/29/21 18:15 U Marijuana (THC) Screen Negative 10/29/21 18:15 Drugs of Abuse Note Disclamer 10/29/21 18:15 Plasma/Serum Alcohol < 0.01 % (0-0.07) 10/29/21 15:10 Coronavirus (PCR) Negative (Negative) 10/30/21 Unknown Blood Type O POSITIVE 10/29/21 15:10 Antibody Screen Negative 10/29/21 15:10 Krishna/IV: Voiding Method Indwelling Catheter Active Medications - Current Medications Current Medications: Generic Name Dose Route Start Last Admin Trade Name Freq PRN Reason Stop Dose Admin Acetaminophen 650 mg 10/29/21 17:04 11/03/21 11:35 Acetaminophen 325 Mg Tab PO 650 mg Q6H PRN Administration Pain, Mild (1-3) Acetaminophen 650 mg 10/29/21 17:04 Acetaminophen 650 Mg Rect Supp TN Q6H PRN Pain MILD(1-3)/Fever >100.5/NIEVES Amiodarone HCl 200 mg 11/08/21 10:00 11/08/21 10:10 Amiodarone 200 Mg Tab PO 200 mg QDAY RAMON Administration Lipase/Protease/Amylase 1 each 10/31/21 08:56 Lipase 10,500/Protease 25,000/Amylase 43,750 (Units) Dr Ivory FEEDTUBE PRN PRN For Clogged Feeding Tube Dextrose 0 ml 11/04/21 13:48 11/05/21 15:29 Dextrose 10% *Hypoglycemia IV 250 ml PRN PRN Administration Hypoglycemia Famotidine 10 mg 11/06/21 10:00 11/08/21 21:34 Famotidine 10 Mg Tab PO 10 mg BID RAMON Administration Fentanyl 50 mcg 11/04/21 14:32 11/09/21 00:01 Fentanyl 100 Mcg/2 Ml Inj IV 50 mcg Q2H PRN Administration Pain, Moderate (4-6) Heparin Sodium (Porcine) 4,300 unit 10/30/21 17:00 Heparin 10,000 Units/10 Ml Vial 40 unit/kg (4300 unit) IV Q6H PRN Anti-Xa Assay < 0.1 units/ml Hydralazine HCl 25 mg 11/08/21 10:00 11/09/21 05:09 Hydralazine 25 Mg Tab PO 25 mg Q8HR RAMON Administration Hydrophilic Ointment 1 applic 10/29/21 14:29 Lip Therapy Vaseline TP Q2HR PRN Dry Lips NORepinephrine/NS 8 MG-250 ML 8 mg in 250 mls @ 3.75 mls/hr 10/29/21 15:00 11/04/21 07:00 Norepinephrine/Ns 8 Mg-250 Ml (Double Conc) IV 0 mcg/min TITRATE RAMON 0 mls/hr Titration Protocol 2 MCG/MIN Heparin Sodium/Sodium Chloride 25,000 unit in 500 mls @ 30 mls/hr 10/30/21 17:00 11/09/21 04:17 Heparin/ 0.45% Nacl-25,000 Unit/500 Ml IV 1,400 units/hr TITR RAMON 28 mls/hr Administration Protocol 1,500 UNITS/HR Dexmedetomidine HCl 200 mcg/ 50 mls @ 5.335 mls/hr 11/07/21 15:00 11/09/21 04:17 Sodium Chloride IV 0.8 mcg/kg/hr TITRATE RAMON 21.34 mls/hr Administration Protocol 0.2 MCG/KG/HR Dextrose 1,000 mls @ 75 mls/hr 11/08/21 11:00 11/09/21 01:25 D5w IV 75 mls/hr DIRECT RAMON Administration Insulin Glargine 15 units 11/08/21 22:00 11/08/21 21:34 Insulin Glargine 100 Units/Ml SUB-Q 15 units QHS RAMON Administration Insulin Human Lispro 0 unit 10/30/21 16:00 11/09/21 06:30 Insulin Lispro 100 Unit/Ml SUB-Q 3 unit Q6HR RAMON Administration Protocol Isosorbide Mononitrate 30 mg 11/08/21 10:00 11/08/21 10:10 Isosorbide Mononitrate Er 30 Mg Tab PO 30 mg QDAY RAMON Administration Metoprolol Tartrate 50 mg 11/07/21 12:00 11/09/21 06:24 Metoprolol Tartrate 50 Mg Tab FEEDTUBE 50 mg Q6H RAMON Administration Multi-Ingred Cream/Lotion/Oil/Oint 1 applic 10/29/21 14:29 11/06/21 09:25 Mineral Oil/Petrolatum, White Ophth Oint 3.5 Gm OU 1 applic Q4HR PRN Administration Dry Eye(s) Senna/Docusate Sodium 1 tab 10/29/21 15:00 11/08/21 21:34 Sennosides/Docusate Sodium 8.6/50 Mg Tab FEEDTUBE 1 tab BID RAMON Administration Simple Syrup 15 ml 10/31/21 08:56 Simple Syrup 15 Ml FEEDTUBE PRN PRN Hypoglycemia Simple Syrup 30 ml 10/31/21 08:56 Simple Syrup 15 Ml FEEDTUBE PRN PRN Hypoglycemia Sodium Bicarbonate 325 mg 10/31/21 08:56 Sodium Bicarbonate 325 Mg Tab FEEDTUBE PRN PRN For Clogged Feeding Tube Sodium Chloride 10 ml 10/29/21 22:00 11/08/21 21:36 Sodium Chloride 0.9% 10 Ml Flush Syringe IV 10 ml BID RAMON Administration Sodium Chloride 10 ml 10/29/21 17:04 Sodium Chloride 0.9% 10 Ml Flush Syringe IV PRN PRN LINE FLUSH Nutrition/Malnutrition Assess - Dietary Evaluation Nutrition/Malnutrition Findings: Nutrition Notes Start: 10/30/21 09:50 Freq: Status: Active Protocol: Document 11/08/21 09:54 MEENU (Rec: 11/08/21 10:20 MEENU [id number]) Nutrition Notes Initial or Follow up Reassessment Current Diagnosis Acute Kidney Injury,Sepsis, Heart Failure,Respiratory Failure Other Pertinent Diagnosis SIERRA/ATN, s/p Cardiac Arrest, DVT, Anemia, Hyperkalemia. Current Diet TF-Nepro w/CARBSTEADY @ 37 ml/ hr (since D 11/06). Labs/Tests 11/08: Na 151, K 3.1, Cl 107.3 , CO2 31, BUN 82, Crea 1.8, Glu 232, Ca 8.1. Pertinent Medications 11/08: Insulin, others nutritionally unremarkable. Height 5 ft 10 in Weight 106.7 kg Lamar Body Weight (kg) 68.18 BMI 33.7 Weight change and time frame No body weight change reported in 1 week. Weight Status Obese Subjective/Other Information RD consult for routine F/U on TF tolerance. TF continues as prescribed and well tolerated, according to RN over the phone. Pt continues on Mechanical ventilation. Percent of energy/protein needs met: Prescribed Nepro w/CARBSTEADY @ 37 ml/hr provides for energy /protein needs (1,598 Kcal/72 g) during LOS, 100% Kcal; 100% AA. Burn Absent Trauma Absent GI Symptoms None Food Allergy No Skin Integrity/Comment Clear, warm, dry. Current % PO Other Minimum of two criteria No #1 Nutrition Diagnosis Inadequate oral intake Diagnosis Progress(for reassessment Continues documentation) Is patient on ventilator? Yes Is Patient Ambulatory and/or Out of Bed No REE-([place]-confined to bed) 2022.848 Kcal/Kg value to use for calculation 15 Approximate Energy Requirements Using 1601 kcal/Kg Calculation Used for Recommendations Kcal/kg Additional Notes Protein: 0.8-1.2 g/Kg IBW; 70- 105 g/day. Fluids: 1 ml/Kcal, or as per MD. Nutrition Intervention Nutrition Support: Continue Nepro w/CARBSTEADY @ 37 ml/hr. Flush: 160 ml water Q 4 hr, or as per MD. Kcal 1,598 Protein (gm) 72 Carbohydrates (gm) 143 Fat (gm) 85 Fluid (mL) 646 Fiber (gm) 11 % RDI: 100% Kcal; 100% AA. Goal #1 Provide at least 75% of energy /protein needs through Enteral Feeding during LOS. Goal #2 Maintain body weight within +/ -3% of admission body weight during LOS. Follow-Up By: 11/15/21 Additional Comments Continue monitoring TF tolerance and BM.
[2021-11-08] MEDS ORDERED: POTASSIUM CHLORIDE 20 MEQ PACKET FEEDTUBE ONE (14:17)
--- NOTE | 2021-11-08 16:43 | Progress Note ---
Assessment and Plan Acute hypoxemic respiratory failure s/p MVS Cardiac arrest with ROSC Acute DVT- on heparin Anemia- possible acute blood loss Right pneumothorax s/p pleural drain placement Shock (septic +/- cardiogenic) Possible aspiration pneumonia SIERRA Altered mental status/acute encephalopathy Elevated serum transaminases, likely ischemic hepatitis Metabolic acidosis Obesity Leukocytosis Conservative fluid management as tolerated by hemodynamics, renal function Increased free water flushes to treat hypernatremia Follow up EEG report when available CXR,ABG as clinically indicated - continue full anticoagulation with IV Heparin re: DVT - continue Daily SAT and SBT assessment as tolerated - continue to wean supplemental oxygen for target O2 sat's > 90% acutely - VAP bundle addressed - continue lung protective strategies - continue bronchodilators with pulmonary hygiene per RT - wean per pulmonary driven protocols otherwise - continue accuchecks with glycemic control per SSI (While critically ill target blood glucose of 140-180 mg/dL; avoid hypoglycemia) - sedation prn for target RASS 0 to -1 - avoid nephrotoxins, renally dose all medications - continue to avoid benzodiazepines , reduce the possibility of delirium - Antibiotics per ID recommendations - prn analgesia per CPOT score - Maintenance of sleep-wake cycle, avoid delirium - continue enteral nutritional support at goal rate as tolerated - Stress ulcer prophylaxis - PT/OT/ROM exercises - continue mobility, frequent turning and off loading for pressure ulcer p revention - Monitor hemodynamics closely - continue other care per attending / other consultants COVID SPECIFIC INTERVENTIONS - COVID-19 PCR negative CONDITION: CRITICAL PROGNOSIS: GUARDED CODE STATUS: FULL CODE The high probability of a clinically significant, sudden or life-threatening deterioration of the [respiratory, cardiovascular, renal & neurologic] system(s) required my full and direct attention, intervention and personal management. The aggregate critical care time was [34] minutes without overlap. Time includes spent on; [x] Data Review and interpretation [x] Patient assessment and monitoring of vital signs [x] Documentation [x] Medication orders and management Subjective Date of service: 11/08/21 Principal diagnosis: AHRF; Cardiac arrest; R. pneumothorax; pneumonia; AMS; DVT's; SIERRA; Obesity Interval history: Patient is seen today for: Acute hypoxemic respiratory failure; Cardiac arrest with ROSC; Right pneumothorax; pneumonia; AMS; bilateral DVT's; SIERRA; Obesity Seen and examined at bedside; 24hour events reviewed; nursing and respiratory care staff consulted; no adverse overnight events reported to me; remains on MVS; no emesis or overt aspiration; secretions moderate; making urine; no adverse overnight events, Fentanyl gtt is off, only on precedex gtt. Patient is still not following any commands. MRI brain and EEG completed. Free water added for hypernatremia and hypokalemia treated, repeat labs ordered. Inadvertently dislodged right pleural drain, follow up CXR does not show residual pneumothorax Objective Vital Signs - 12hr 11/08/21 11/08/21 11/08/21 06:17 07:02 08:00 Temperature 99 F Pulse Rate 68 65 Pulse Rate [ 107 H From Monitor] Respiratory 14 Rate Blood Pressure 155/92 140/81 O2 Sat by Pulse 98 97 Oximetry 11/08/21 11/08/21 11/08/21 11:45 12:00 14:56 Temperature 99.9 F H Pulse Rate 65 64 Pulse Rate [ From Monitor] Respiratory Rate Blood Pressure 130/75 147/70 O2 Sat by Pulse 98 98 Oximetry Constitutional: appears uncomfortable, other (elderly obese female with mildly increased respiratory effort at rest) Eyes: non-icteric, other (+ mild periorbital phymosis) ENT: oropharynx moist, oropharyngeal exudate pre (moderate), other (ETT 23 cm KRYSTAL) Neck: supple, no lymphadenopathy, no JVD Effort: mildly labored Ascultation: Bilateral: diminished breath sounds, rhonchi Percussion: Bilateral: not dull Cardiovascular: irregular rhythm, other (no R/M) Gastrointestinal: normoactive bowel sounds Integumentary: normal Extremities: no cyanosis, pulses normal, no ischemia or petechiae, edema Neurologic: non-focal exam (grossly), pupils equal and round, motor strength normal and (weak), unable to assess Psychiatric: other (unable to assess re: AMS) CBC and BMP: 11/13/21 04:17 11/13/21 04:17 ABG, PT/INR, D-dimer: ABG ABG pH 7.298 pH Units (7.350-7.450) L 11/07/21 12:15 ABG pCO2 69.6 mm Hg 11/07/21 12:15 ABG pO2 73.0 mm Hg (80.0-90.0) L 11/07/21 12:15 ABG O2 Saturation 94.4 % (95.0-99.0) L 11/07/21 12:15 PT/INR, D-dimer PT 17.2 Sec. (12.2-14.9) H 10/30/21 16:30 INR 1.27 (0.87-1.13) H 10/30/21 16:30 D-Dimer > 14284 ng/mlDDU (0-234) H 10/30/21 Unknown Abnormal lab findings: Abnormal Labs 10/29/21 10/29/21 10/29/21 15:10 15:10 15:10 WBC 27.8 H RBC Hgb Hct MCH 27 L RDW Plt Count Lymph % (Auto) Lymph # (Auto) Walsh # (Auto) Seg Neutrophils % Seg Neuts % (Manual) 78.0 H Lymphocytes % (Manual) 10.0 L Nucleated RBC % Seg Neutrophils # Seg Neutrophils # Man 21.7 H Monocytes # (Manual) 1.4 H PT INR APTT D-Dimer Heparin Anti-Xa Level ABG pH ABG pO2 ABG HCO3 ABG O2 Saturation ABG Base Excess ABG Hemoglobin Oxyhemoglobin Sodium Potassium Chloride Carbon Dioxide BUN Creatinine Glucose POC Glucose Hemoglobin A1c Lactic Acid 6.80 H* Calcium Phosphorus Magnesium Ferritin AST ALT Alkaline Phosphatase Lactate Dehydrogenase Troponin T 0.089 H C-Reactive Protein Total Protein Albumin LDL Cholesterol Direct Urine Creatinine Urine Total Protein Salicylates Acetaminophen 10/29/21 10/29/21 10/29/21 15:10 15:10 15:10 WBC RBC Hgb Hct MCH RDW Plt Count Lymph % (Auto) Lymph # (Auto) Walsh # (Auto) Seg Neutrophils % Seg Neuts % (Manual) Lymphocytes % (Manual) Nucleated RBC % Seg Neutrophils # Seg Neutrophils # Man Monocytes # (Manual) PT INR APTT D-Dimer Heparin Anti-Xa Level ABG pH ABG pO2 ABG HCO3 ABG O2 Saturation ABG Base Excess ABG Hemoglobin Oxyhemoglobin Sodium 136 L Potassium 2.8 L* Chloride 93.4 L Carbon Dioxide 20 L BUN Creatinine Glucose 330 H POC Glucose Hemoglobin A1c Lactic Acid Calcium Phosphorus Magnesium Ferritin AST 1013 H ALT 1289 H Alkaline Phosphatase 246 H Lactate Dehydrogenase Troponin T C-Reactive Protein Total Protein Albumin LDL Cholesterol Direct Urine Creatinine Urine Total Protein Salicylates < 0.3 L Acetaminophen 5.0 L 10/29/21 10/29/21 10/29/21 15:11 16:01 19:29 WBC RBC Hgb Hct MCH RDW Plt Count Lymph % (Auto) Lymph # (Auto) Walsh # (Auto) Seg Neutrophils % Seg Neuts % (Manual) Lymphocytes % (Manual) Nucleated RBC % Seg Neutrophils # Seg Neutrophils # Man Monocytes # (Manual) PT INR APTT D-Dimer Heparin Anti-Xa Level ABG pH 7.307 L ABG pO2 64.1 L ABG HCO3 ABG O2 Saturation 90.8 L ABG Base Excess -2.9 L ABG Hemoglobin Oxyhemoglobin 89.3 L Sodium Potassium Chloride Carbon Dioxide BUN Creatinine Glucose POC Glucose Hemoglobin A1c Lactic Acid 2.60 H* Calcium Phosphorus Magnesium 2.90 H Ferritin AST ALT Alkaline Phosphatase Lactate Dehydrogenase Troponin T C-Reactive Protein Total Protein Albumin LDL Cholesterol Direct Urine Creatinine Urine Total Protein Salicylates Acetaminophen 10/29/21 10/29/21 10/30/21 19:40 22:34 04:30 WBC 16.2 H RBC Hgb Hct MCH 26 L RDW 15.5 H Plt Count Lymph % (Auto) 6.2 L Lymph # (Auto) 1.0 L Walsh # (Auto) 0.9 H Seg Neutrophils % 88.1 H Seg Neuts % (Manual) Lymphocytes % (Manual) Nucleated RBC % Seg Neutrophils # 14.2 H Seg Neutrophils # Man Monocytes # (Manual) PT INR APTT D-Dimer Heparin Anti-Xa Level ABG pH ABG pO2 ABG HCO3 ABG O2 Saturation ABG Base Excess ABG Hemoglobin Oxyhemoglobin Sodium Potassium Chloride Carbon Dioxide BUN Creatinine Glucose POC Glucose Hemoglobin A1c Lactic Acid Calcium Phosphorus Magnesium Ferritin AST ALT Alkaline Phosphatase Lactate Dehydrogenase Troponin T 1.950 H* D 1.150 H* D C-Reactive Protein Total Protein Albumin LDL Cholesterol Direct 43 L Urine Creatinine Urine Total Protein Salicylates Acetaminophen 10/30/21 10/30/21 10/30/21 04:30 04:35 05:45 WBC RBC Hgb Hct MCH RDW Plt Count Lymph % (Auto) Lymph # (Auto) Walsh # (Auto) Seg Neutrophils % Seg Neuts % (Manual) Lymphocytes % (Manual) Nucleated RBC % Seg Neutrophils # Seg Neutrophils # Man Monocytes # (Manual) PT INR APTT D-Dimer Heparin Anti-Xa Level ABG pH ABG pO2 69.5 L ABG HCO3 ABG O2 Saturation ABG Base Excess -2.7 L ABG Hemoglobin Oxyhemoglobin 94.7 L Sodium Potassium Chloride Carbon Dioxide 21 L BUN Creatinine Glucose 159 H POC Glucose 151 H Hemoglobin A1c Lactic Acid Calcium 7.9 L D Phosphorus Magnesium Ferritin AST 461 H ALT 686 H Alkaline Phosphatase 130 H Lactate Dehydrogenase Troponin T C-Reactive Protein Total Protein 5.6 L D Albumin 3.2 L LDL Cholesterol Direct Urine Creatinine Urine Total Protein Salicylates Acetaminophen 10/30/21 10/30/21 10/30/21 11:24 15:59 16:30 WBC RBC Hgb Hct MCH RDW Plt Count Lymph % (Auto) Lymph # (Auto) Walsh # (Auto) Seg Neutrophils % Seg Neuts % (Manual) Lymphocytes % (Manual) Nucleated RBC % Seg Neutrophils # Seg Neutrophils # Man Monocytes # (Manual) PT 17.2 H INR 1.27 H APTT 44.4 H D-Dimer Heparin Anti-Xa Level ABG pH ABG pO2 ABG HCO3 ABG O2 Saturation ABG Base Excess ABG Hemoglobin Oxyhemoglobin Sodium Potassium Chloride Carbon Dioxide BUN Creatinine Glucose POC Glucose 153 H 109 H Hemoglobin A1c Lactic Acid Calcium Phosphorus Magnesium Ferritin AST ALT Alkaline Phosphatase Lactate Dehydrogenase Troponin T C-Reactive Protein Total Protein Albumin LDL Cholesterol Direct Urine Creatinine Urine Total Protein Salicylates Acetaminophen 10/30/21 10/30/21 10/30/21 23:00 Unknown Unknown WBC RBC Hgb Hct MCH RDW Plt Count Lymph % (Auto) Lymph # (Auto) Walsh # (Auto) Seg Neutrophils % Seg Neuts % (Manual) Lymphocytes % (Manual) Nucleated RBC % Seg Neutrophils # Seg Neutrophils # Man Monocytes # (Manual) PT INR APTT D-Dimer > 68603 H Heparin Anti-Xa Level 0.82 H ABG pH ABG pO2 ABG HCO3 ABG O2 Saturation ABG Base Excess ABG Hemoglobin Oxyhemoglobin Sodium Potassium Chloride Carbon Dioxide BUN Creatinine Glucose POC Glucose Hemoglobin A1c Lactic Acid Calcium Phosphorus Magnesium Ferritin 208.4 H AST ALT Alkaline Phosphatase Lactate Dehydrogenase Troponin T C-Reactive Protein Total Protein Albumin LDL Cholesterol Direct Urine Creatinine Urine Total Protein Salicylates Acetaminophen 10/30/21 10/31/21 10/31/21 Unknown 04:30 04:30 WBC 14.4 H RBC Hgb Hct MCH 26 L RDW Plt Count Lymph % (Auto) Lymph # (Auto) Walsh # (Auto) Seg Neutrophils % Seg Neuts % (Manual) Lymphocytes % (Manual) Nucleated RBC % Seg Neutrophils # Seg Neutrophils # Man Monocytes # (Manual) PT INR APTT D-Dimer Heparin Anti-Xa Level ABG pH ABG pO2 ABG HCO3 ABG O2 Saturation ABG Base Excess ABG Hemoglobin Oxyhemoglobin Sodium Potassium 3.5 L Chloride 107.5 H Carbon Dioxide 20 L BUN 28 H Creatinine 1.7 H Glucose 113 H POC Glucose Hemoglobin A1c Lactic Acid Calcium 7.9 L Phosphorus Magnesium Ferritin AST ALT Alkaline Phosphatase Lactate Dehydrogenase 469 H Troponin T C-Reactive Protein 13.40 H Total Protein Albumin LDL Cholesterol Direct Urine Creatinine Urine Total Protein Salicylates Acetaminophen 10/31/21 10/31/21 10/31/21 04:30 05:11 15:30 WBC RBC Hgb Hct MCH RDW Plt Count Lymph % (Auto) Lymph # (Auto) Walsh # (Auto) Seg Neutrophils % Seg Neuts % (Manual) Lymphocytes % (Manual) Nucleated RBC % Seg Neutrophils # Seg Neutrophils # Man Monocytes # (Manual) PT INR APTT D-Dimer Heparin Anti-Xa Level ABG pH 7.222 L ABG pO2 61.5 L ABG HCO3 ABG O2 Saturation 86.2 L ABG Base Excess -6.3 L ABG Hemoglobin 11.2 L Oxyhemoglobin 84.5 L Sodium Potassium Chloride Carbon Dioxide BUN Creatinine Glucose POC Glucose 106 H Hemoglobin A1c 6.7 H Lactic Acid Calcium Phosphorus Magnesium Ferritin AST ALT Alkaline Phosphatase Lactate Dehydrogenase Troponin T C-Reactive Protein Total Protein Albumin LDL Cholesterol Direct Urine Creatinine Urine Total Protein Salicylates Acetaminophen 10/31/21 10/31/21 10/31/21 16:07 16:35 17:45 WBC RBC Hgb Hct MCH RDW Plt Count Lymph % (Auto) Lymph # (Auto) Walsh # (Auto) Seg Neutrophils % Seg Neuts % (Manual) Lymphocytes % (Manual) Nucleated RBC % Seg Neutrophils # Seg Neutrophils # Man Monocytes # (Manual) PT INR APTT D-Dimer Heparin Anti-Xa Level ABG pH 7.267 L ABG pO2 58.3 L ABG HCO3 ABG O2 Saturation 88.3 L ABG Base Excess -5.9 L ABG Hemoglobin 10.1 L Oxyhemoglobin 86.5 L Sodium Potassium Chloride Carbon Dioxide BUN Creatinine Glucose POC Glucose 115 H Hemoglobin A1c Lactic Acid Calcium Phosphorus Magnesium Ferritin AST ALT Alkaline Phosphatase Lactate Dehydrogenase Troponin T C-Reactive Protein Total Protein Albumin LDL Cholesterol Direct Urine Creatinine 383.6 H Urine Total Protein Salicylates Acetaminophen 11/01/21 11/01/21 11/01/21 00:06 05:08 06:00 WBC 12.6 H RBC 3.43 L Hgb 8.9 L Hct 28.7 L MCH 26 L RDW 15.7 H Plt Count 130 L Lymph % (Auto) Lymph # (Auto) Walsh # (Auto) Seg Neutrophils % Seg Neuts % (Manual) Lymphocytes % (Manual) Nucleated RBC % Seg Neutrophils # Seg Neutrophils # Man Monocytes # (Manual) PT INR APTT D-Dimer Heparin Anti-Xa Level ABG pH ABG pO2 ABG HCO3 ABG O2 Saturation ABG Base Excess ABG Hemoglobin Oxyhemoglobin Sodium Potassium Chloride Carbon Dioxide BUN Creatinine Glucose POC Glucose 114 H 120 H Hemoglobin A1c Lactic Acid Calcium Phosphorus Magnesium Ferritin AST ALT Alkaline Phosphatase Lactate Dehydrogenase Troponin T C-Reactive Protein Total Protein Albumin LDL Cholesterol Direct Urine Creatinine Urine Total Protein Salicylates Acetaminophen 11/01/21 11/01/21 11/01/21 06:00 11:43 14:00 WBC RBC Hgb Hct MCH RDW Plt Count Lymph % (Auto) Lymph # (Auto) Walsh # (Auto) Seg Neutrophils % Seg Neuts % (Manual) Lymphocytes % (Manual) Nucleated RBC % Seg Neutrophils # Seg Neutrophils # Man Monocytes # (Manual) PT INR APTT D-Dimer Heparin Anti-Xa Level ABG pH 7.349 L ABG pO2 75.6 L ABG HCO3 ABG O2 Saturation ABG Base Excess -3.9 L ABG Hemoglobin 9.8 L Oxyhemoglobin 93.5 L Sodium Potassium Chloride 114.1 H Carbon Dioxide 20 L BUN 33 H Creatinine Glucose 131 H POC Glucose 151 H Hemoglobin A1c Lactic Acid Calcium 7.7 L Phosphorus Magnesium Ferritin AST 79 H ALT 259 H Alkaline Phosphatase Lactate Dehydrogenase Troponin T C-Reactive Protein Total Protein 5.5 L Albumin 2.7 L LDL Cholesterol Direct Urine Creatinine Urine Total Protein Salicylates Acetaminophen 11/01/21 11/01/21 11/02/21 16:45 22:55 05:12 WBC RBC Hgb Hct MCH RDW Plt Count Lymph % (Auto) Lymph # (Auto) Walsh # (Auto) Seg Neutrophils % Seg Neuts % (Manual) Lymphocytes % (Manual) Nucleated RBC % Seg Neutrophils # Seg Neutrophils # Man Monocytes # (Manual) PT INR APTT D-Dimer Heparin Anti-Xa Level ABG pH ABG pO2 ABG HCO3 ABG O2 Saturation ABG Base Excess ABG Hemoglobin Oxyhemoglobin Sodium Potassium Chloride Carbon Dioxide BUN Creatinine Glucose POC Glucose 119 H 129 H 140 H Hemoglobin A1c Lactic Acid Calcium Phosphorus Magnesium Ferritin AST ALT Alkaline Phosphatase Lactate Dehydrogenase Troponin T C-Reactive Protein Total Protein Albumin LDL Cholesterol Direct Urine Creatinine Urine Total Protein Salicylates Acetaminophen 11/02/21 11/02/21 11/02/21 05:35 05:35 09:35 WBC 13.5 H RBC 3.60 L Hgb 9.7 L Hct MCH 27 L RDW 15.7 H Plt Count Lymph % (Auto) Lymph # (Auto) Walsh # (Auto) Seg Neutrophils % Seg Neuts % (Manual) Lymphocytes % (Manual) Nucleated RBC % Seg Neutrophils # Seg Neutrophils # Man Monocytes # (Manual) PT INR APTT D-Dimer Heparin Anti-Xa Level ABG pH 7.208 L ABG pO2 75.9 L ABG HCO3 ABG O2 Saturation 93.6 L ABG Base Excess -4.3 L ABG Hemoglobin 9.1 L Oxyhemoglobin 91.6 L Sodium Potassium 5.2 H D Chloride 112.6 H Carbon Dioxide BUN 32 H Creatinine Glucose 152 H POC Glucose Hemoglobin A1c Lactic Acid Calcium 8.2 L Phosphorus Magnesium 2.70 H Ferritin AST ALT Alkaline Phosphatase Lactate Dehydrogenase Troponin T C-Reactive Protein Total Protein Albumin LDL Cholesterol Direct Urine Creatinine Urine Total Protein Salicylates Acetaminophen 11/02/21 11/02/21 11/02/21 11:44 17:13 23:43 WBC RBC Hgb Hct MCH RDW Plt Count Lymph % (Auto) Lymph # (Auto) Walsh # (Auto) Seg Neutrophils % Seg Neuts % (Manual) Lymphocytes % (Manual) Nucleated RBC % Seg Neutrophils # Seg Neutrophils # Man Monocytes # (Manual) PT INR APTT D-Dimer Heparin Anti-Xa Level ABG pH ABG pO2 ABG HCO3 ABG O2 Saturation ABG Base Excess ABG Hemoglobin Oxyhemoglobin Sodium Potassium Chloride Carbon Dioxide BUN Creatinine Glucose POC Glucose 173 H 148 H 137 H Hemoglobin A1c Lactic Acid Calcium Phosphorus Magnesium Ferritin AST ALT Alkaline Phosphatase Lactate Dehydrogenase Troponin T C-Reactive Protein Total Protein Albumin LDL Cholesterol Direct Urine Creatinine Urine Total Protein Salicylates Acetaminophen 11/03/21 11/03/21 11/03/21 04:59 06:00 06:00 WBC RBC 3.43 L Hgb 9.1 L Hct 29.0 L MCH 26 L RDW 16.4 H Plt Count Lymph % (Auto) Lymph # (Auto) Walsh # (Auto) Seg Neutrophils % Seg Neuts % (Manual) Lymphocytes % (Manual) Nucleated RBC % Seg Neutrophils # Seg Neutrophils # Man Monocytes # (Manual) PT INR APTT D-Dimer Heparin Anti-Xa Level 0.17 L ABG pH ABG pO2 ABG HCO3 ABG O2 Saturation ABG Base Excess ABG Hemoglobin Oxyhemoglobin Sodium Potassium Chloride Carbon Dioxide BUN Creatinine Glucose POC Glucose 167 H Hemoglobin A1c Lactic Acid Calcium Phosphorus Magnesium Ferritin AST ALT Alkaline Phosphatase Lactate Dehydrogenase Troponin T C-Reactive Protein Total Protein Albumin LDL Cholesterol Direct Urine Creatinine Urine Total Protein Salicylates Acetaminophen 11/03/21 11/03/21 11/03/21 06:00 09:20 11:58 WBC RBC Hgb Hct MCH RDW Plt Count Lymph % (Auto) Lymph # (Auto) Walsh # (Auto) Seg Neutrophils % Seg Neuts % (Manual) Lymphocytes % (Manual) Nucleated RBC % Seg Neutrophils # Seg Neutrophils # Man Monocytes # (Manual) PT INR APTT D-Dimer Heparin Anti-Xa Level ABG pH 7.274 L ABG pO2 75.6 L ABG HCO3 ABG O2 Saturation 94.9 L ABG Base Excess -2.5 L ABG Hemoglobin 9.3 L Oxyhemoglobin 92.9 L Sodium 149 H Potassium Chloride 117.5 H Carbon Dioxide BUN 32 H Creatinine Glucose 173 H POC Glucose 192 H Hemoglobin A1c Lactic Acid Calcium 8.1 L Phosphorus Magnesium Ferritin AST ALT Alkaline Phosphatase Lactate Dehydrogenase Troponin T C-Reactive Protein Total Protein Albumin LDL Cholesterol Direct Urine Creatinine Urine Total Protein Salicylates Acetaminophen 11/03/21 11/03/21 11/04/21 18:22 Unknown 00:09 WBC RBC Hgb Hct MCH RDW Plt Count Lymph % (Auto) Lymph # (Auto) Walsh # (Auto) Seg Neutrophils % Seg Neuts % (Manual) Lymphocytes % (Manual) Nucleated RBC % Seg Neutrophils # Seg Neutrophils # Man Monocytes # (Manual) PT INR APTT D-Dimer Heparin Anti-Xa Level 0.29 L ABG pH ABG pO2 ABG HCO3 ABG O2 Saturation ABG Base Excess ABG Hemoglobin Oxyhemoglobin Sodium Potassium Chloride Carbon Dioxide BUN Creatinine Glucose POC Glucose 178 H 221 H Hemoglobin A1c Lactic Acid Calcium Phosphorus Magnesium Ferritin AST ALT Alkaline Phosphatase Lactate Dehydrogenase Troponin T C-Reactive Protein Total Protein Albumin LDL Cholesterol Direct Urine Creatinine Urine Total Protein Salicylates Acetaminophen 11/04/21 11/04/21 11/04/21 05:09 09:40 09:40 WBC 16.8 H RBC Hgb Hct MCH 27 L RDW 16.5 H Plt Count Lymph % (Auto) Lymph # (Auto) Walsh # (Auto) Seg Neutrophils % Seg Neuts % (Manual) Lymphocytes % (Manual) Nucleated RBC % Seg Neutrophils # Seg Neutrophils # Man Monocytes # (Manual) PT INR APTT D-Dimer Heparin Anti-Xa Level ABG pH ABG pO2 ABG HCO3 ABG O2 Saturation ABG Base Excess ABG Hemoglobin Oxyhemoglobin Sodium Potassium 5.9 H Chloride 108.5 H Carbon Dioxide BUN 54 H Creatinine 1.8 H Glucose 198 H POC Glucose 182 H Hemoglobin A1c Lactic Acid Calcium Phosphorus Magnesium 3.00 H Ferritin AST ALT Alkaline Phosphatase Lactate Dehydrogenase Troponin T C-Reactive Protein Total Protein Albumin LDL Cholesterol Direct Urine Creatinine Urine Total Protein Salicylates Acetaminophen 11/04/21 11/04/21 11/04/21 12:13 13:34 14:05 WBC RBC Hgb Hct MCH RDW Plt Count Lymph % (Auto) Lymph # (Auto) Walsh # (Auto) Seg Neutrophils % Seg Neuts % (Manual) Lymphocytes % (Manual) Nucleated RBC % Seg Neutrophils # Seg Neutrophils # Man Monocytes # (Manual) PT INR APTT D-Dimer Heparin Anti-Xa Level ABG pH 7.223 L ABG pO2 71.3 L ABG HCO3 ABG O2 Saturation 92.8 L ABG Base Excess ABG Hemoglobin 8.2 L Oxyhemoglobin 91.0 L Sodium Potassium Chloride Carbon Dioxide BUN Creatinine Glucose POC Glucose 184 H Hemoglobin A1c Lactic Acid Calcium Phosphorus Magnesium Ferritin AST ALT Alkaline Phosphatase Lactate Dehydrogenase Troponin T C-Reactive Protein Total Protein Albumin LDL Cholesterol Direct Urine Creatinine 184.6 H Urine Total Protein Salicylates Acetaminophen 11/04/21 11/04/21 11/05/21 18:02 Unknown 00:07 WBC RBC Hgb Hct MCH RDW Plt Count Lymph % (Auto) Lymph # (Auto) Walsh # (Auto) Seg Neutrophils % Seg Neuts % (Manual) Lymphocytes % (Manual) Nucleated RBC % Seg Neutrophils # Seg Neutrophils # Man Monocytes # (Manual) PT INR APTT D-Dimer Heparin Anti-Xa Level ABG pH ABG pO2 ABG HCO3 ABG O2 Saturation ABG Base Excess ABG Hemoglobin Oxyhemoglobin Sodium Potassium Chloride Carbon Dioxide BUN Creatinine Glucose POC Glucose 262 H 259 H Hemoglobin A1c Lactic Acid Calcium Phosphorus Magnesium Ferritin AST ALT Alkaline Phosphatase Lactate Dehydrogenase Troponin T C-Reactive Protein Total Protein Albumin LDL Cholesterol Direct Urine Creatinine 190.9 H Urine Total Protein 172 H Salicylates Acetaminophen 11/05/21 11/05/21 11/05/21 04:20 04:20 05:30 WBC 17.9 H RBC 3.64 L Hgb 9.7 L Hct MCH 27 L RDW 16.4 H Plt Count Lymph % (Auto) Lymph # (Auto) Walsh # (Auto) Seg Neutrophils % Seg Neuts % (Manual) Lymphocytes % (Manual) Nucleated RBC % Seg Neutrophils # Seg Neutrophils # Man Monocytes # (Manual) PT INR APTT D-Dimer Heparin Anti-Xa Level ABG pH ABG pO2 ABG HCO3 ABG O2 Saturation ABG Base Excess ABG Hemoglobin Oxyhemoglobin Sodium Potassium 5.6 H Chloride 108.4 H Carbon Dioxide BUN 71 H Creatinine 1.9 H Glucose 270 H POC Glucose 283 H Hemoglobin A1c Lactic Acid Calcium Phosphorus Magnesium Ferritin AST ALT Alkaline Phosphatase Lactate Dehydrogenase Troponin T C-Reactive Protein Total Protein Albumin LDL Cholesterol Direct Urine Creatinine Urine Total Protein Salicylates Acetaminophen 11/05/21 11/05/21 11/05/21 10:05 12:10 15:29 WBC RBC Hgb Hct MCH RDW Plt Count Lymph % (Auto) Lymph # (Auto) Walsh # (Auto) Seg Neutrophils % Seg Neuts % (Manual) Lymphocytes % (Manual) Nucleated RBC % Seg Neutrophils # Seg Neutrophils # Man Monocytes # (Manual) PT INR APTT D-Dimer Heparin Anti-Xa Level ABG pH 7.248 L ABG pO2 73.7 L ABG HCO3 26.2 H ABG O2 Saturation 93.1 L ABG Base Excess ABG Hemoglobin 8.9 L Oxyhemoglobin 91.4 L Sodium Potassium Chloride Carbon Dioxide BUN Creatinine Glucose POC Glucose 225 H 199 H Hemoglobin A1c Lactic Acid Calcium Phosphorus Magnesium Ferritin AST ALT Alkaline Phosphatase Lactate Dehydrogenase Troponin T C-Reactive Protein Total Protein Albumin LDL Cholesterol Direct Urine Creatinine Urine Total Protein Salicylates Acetaminophen 11/05/21 11/05/21 11/05/21 15:51 17:32 17:40 WBC RBC Hgb Hct MCH RDW Plt Count Lymph % (Auto) Lymph # (Auto) Walsh # (Auto) Seg Neutrophils % Seg Neuts % (Manual) Lymphocytes % (Manual) Nucleated RBC % Seg Neutrophils # Seg Neutrophils # Man Monocytes # (Manual) PT INR APTT D-Dimer Heparin Anti-Xa Level ABG pH ABG pO2 ABG HCO3 ABG O2 Saturation ABG Base Excess ABG Hemoglobin Oxyhemoglobin Sodium Potassium 5.2 H Chloride 107.8 H Carbon Dioxide BUN 79 H Creatinine 1.9 H Glucose 204 H POC Glucose 278 H 197 H Hemoglobin A1c Lactic Acid Calcium Phosphorus Magnesium Ferritin AST ALT Alkaline Phosphatase Lactate Dehydrogenase Troponin T C-Reactive Protein Total Protein Albumin LDL Cholesterol Direct Urine Creatinine Urine Total Protein Salicylates Acetaminophen 11/05/21 11/05/21 11/05/21 21:25 22:22 23:43 WBC RBC Hgb Hct MCH RDW Plt Count Lymph % (Auto) Lymph # (Auto) Walsh # (Auto) Seg Neutrophils % Seg Neuts % (Manual) Lymphocytes % (Manual) Nucleated RBC % Seg Neutrophils # Seg Neutrophils # Man Monocytes # (Manual) PT INR APTT D-Dimer Heparin Anti-Xa Level ABG pH ABG pO2 ABG HCO3 ABG O2 Saturation ABG Base Excess ABG Hemoglobin Oxyhemoglobin Sodium Potassium 5.3 H Chloride 109.2 H Carbon Dioxide BUN 81 H Creatinine 2.0 H Glucose 195 H POC Glucose 180 H 203 H Hemoglobin A1c Lactic Acid Calcium Phosphorus Magnesium Ferritin AST ALT Alkaline Phosphatase Lactate Dehydrogenase Troponin T C-Reactive Protein Total Protein Albumin LDL Cholesterol Direct Urine Creatinine Urine Total Protein Salicylates Acetaminophen 11/05/21 11/06/21 11/06/21 Unknown 02:35 05:09 WBC RBC Hgb Hct MCH RDW Plt Count Lymph % (Auto) Lymph # (Auto) Walsh # (Auto) Seg Neutrophils % Seg Neuts % (Manual) Lymphocytes % (Manual) Nucleated RBC % Seg Neutrophils # Seg Neutrophils # Man Monocytes # (Manual) PT INR APTT D-Dimer Heparin Anti-Xa Level ABG pH ABG pO2 ABG HCO3 ABG O2 Saturation ABG Base Excess ABG Hemoglobin Oxyhemoglobin Sodium 146 H Potassium 6.0 H Chloride 108.1 H 107.1 H Carbon Dioxide 21 L BUN 80 H 84 H Creatinine 2.0 H 2.0 H Glucose 238 H 235 H POC Glucose 215 H Hemoglobin A1c Lactic Acid Calcium Phosphorus Magnesium 2.80 H Ferritin AST ALT 77 H Alkaline Phosphatase Lactate Dehydrogenase Troponin T C-Reactive Protein Total Protein Albumin 3.0 L LDL Cholesterol Direct Urine Creatinine Urine Total Protein Salicylates Acetaminophen 11/06/21 11/06/21 11/06/21 05:40 08:07 08:07 WBC RBC Hgb Hct MCH RDW Plt Count Lymph % (Auto) Lymph # (Auto) Walsh # (Auto) Seg Neutrophils % Seg Neuts % (Manual) Lymphocytes % (Manual) Nucleated RBC % Seg Neutrophils # Seg Neutrophils # Man Monocytes # (Manual) PT INR APTT D-Dimer Heparin Anti-Xa Level 1.24 H ABG pH 7.311 L ABG pO2 72.8 L ABG HCO3 29.7 H ABG O2 Saturation 94.1 L ABG Base Excess ABG Hemoglobin 11.4 L Oxyhemoglobin 92.3 L Sodium Potassium 5.2 H Chloride Carbon Dioxide BUN 85 H Creatinine 2.3 H Glucose 236 H POC Glucose Hemoglobin A1c Lactic Acid Calcium Phosphorus Magnesium Ferritin AST ALT Alkaline Phosphatase Lactate Dehydrogenase Troponin T C-Reactive Protein Total Protein Albumin LDL Cholesterol Direct Urine Creatinine Urine Total Protein Salicylates Acetaminophen 11/06/21 11/06/21 11/06/21 12:14 12:57 14:28 WBC RBC Hgb Hct MCH RDW Plt Count Lymph % (Auto) Lymph # (Auto) Walsh # (Auto) Seg Neutrophils % Seg Neuts % (Manual) Lymphocytes % (Manual) Nucleated RBC % Seg Neutrophils # Seg Neutrophils # Man Monocytes # (Manual) PT INR APTT D-Dimer Heparin Anti-Xa Level ABG pH 7.282 L ABG pO2 72.6 L ABG HCO3 30.8 H ABG O2 Saturation 93.7 L ABG Base Excess 3.2 H ABG Hemoglobin 8.6 L Oxyhemoglobin 91.8 L Sodium Potassium Chloride Carbon Dioxide BUN 91 H Creatinine 2.6 H Glucose 259 H POC Glucose 225 H Hemoglobin A1c Lactic Acid Calcium Phosphorus Magnesium Ferritin AST ALT Alkaline Phosphatase Lactate Dehydrogenase Troponin T C-Reactive Protein Total Protein Albumin LDL Cholesterol Direct Urine Creatinine Urine Total Protein Salicylates Acetaminophen 11/06/21 11/06/21 11/06/21 17:28 19:20 21:30 WBC RBC Hgb Hct MCH RDW Plt Count Lymph % (Auto) Lymph # (Auto) Walsh # (Auto) Seg Neutrophils % Seg Neuts % (Manual) Lymphocytes % (Manual) Nucleated RBC % Seg Neutrophils # Seg Neutrophils # Man Monocytes # (Manual) PT INR APTT D-Dimer Heparin Anti-Xa Level 0.73 H ABG pH ABG pO2 ABG HCO3 ABG O2 Saturation ABG Base Excess ABG Hemoglobin Oxyhemoglobin Sodium Potassium Chloride Carbon Dioxide BUN 95 H Creatinine 2.9 H Glucose 233 H POC Glucose 206 H Hemoglobin A1c Lactic Acid Calcium Phosphorus Magnesium Ferritin AST ALT Alkaline Phosphatase Lactate Dehydrogenase Troponin T C-Reactive Protein Total Protein Albumin LDL Cholesterol Direct Urine Creatinine Urine Total Protein Salicylates Acetaminophen 11/06/21 11/07/21 11/07/21 22:56 05:06 06:30 WBC RBC Hgb Hct MCH RDW Plt Count Lymph % (Auto) Lymph # (Auto) Walsh # (Auto) Seg Neutrophils % Seg Neuts % (Manual) Lymphocytes % (Manual) Nucleated RBC % Seg Neutrophils # Seg Neutrophils # Man Monocytes # (Manual) PT INR APTT D-Dimer Heparin Anti-Xa Level ABG pH ABG pO2 ABG HCO3 ABG O2 Saturation ABG Base Excess ABG Hemoglobin Oxyhemoglobin Sodium 146 H Potassium Chloride Carbon Dioxide BUN 98 H Creatinine 2.8 H Glucose 202 H POC Glucose 215 H 172 H Hemoglobin A1c Lactic Acid Calcium Phosphorus 4.90 H D Magnesium 2.90 H Ferritin AST ALT Alkaline Phosphatase Lactate Dehydrogenase Troponin T C-Reactive Protein Total Protein Albumin LDL Cholesterol Direct Urine Creatinine Urine Total Protein Salicylates Acetaminophen 11/07/21 11/07/21 11/07/21 06:30 11:26 12:15 WBC 16.0 H RBC 3.06 L Hgb 8.2 L Hct 26.1 L MCH 27 L RDW 16.2 H Plt Count Lymph % (Auto) Lymph # (Auto) Walsh # (Auto) Seg Neutrophils % Seg Neuts % (Manual) 77.0 H Lymphocytes % (Manual) 11.0 L Nucleated RBC % 2.0 H Seg Neutrophils # Seg Neutrophils # Man 12.3 H Monocytes # (Manual) PT INR APTT D-Dimer Heparin Anti-Xa Level ABG pH 7.298 L ABG pO2 73.0 L ABG HCO3 33.3 H ABG O2 Saturation 94.4 L ABG Base Excess 5.8 H ABG Hemoglobin 8.2 L Oxyhemoglobin 92.7 L Sodium Potassium Chloride Carbon Dioxide BUN Creatinine Glucose POC Glucose 179 H Hemoglobin A1c Lactic Acid Calcium Phosphorus Magnesium Ferritin AST ALT Alkaline Phosphatase Lactate Dehydrogenase Troponin T C-Reactive Protein Total Protein Albumin LDL Cholesterol Direct Urine Creatinine Urine Total Protein Salicylates Acetaminophen 11/07/21 11/07/21 11/07/21 17:57 22:16 23:49 WBC RBC Hgb Hct MCH RDW Plt Count Lymph % (Auto) Lymph # (Auto) Walsh # (Auto) Seg Neutrophils % Seg Neuts % (Manual) Lymphocytes % (Manual) Nucleated RBC % Seg Neutrophils # Seg Neutrophils # Man Monocytes # (Manual) PT INR APTT D-Dimer Heparin Anti-Xa Level ABG pH ABG pO2 ABG HCO3 ABG O2 Saturation ABG Base Excess ABG Hemoglobin Oxyhemoglobin Sodium Potassium Chloride Carbon Dioxide BUN Creatinine Glucose POC Glucose 166 H 223 H 190 H Hemoglobin A1c Lactic Acid Calcium Phosphorus Magnesium Ferritin AST ALT Alkaline Phosphatase Lactate Dehydrogenase Troponin T C-Reactive Protein Total Protein Albumin LDL Cholesterol Direct Urine Creatinine Urine Total Protein Salicylates Acetaminophen 11/08/21 11/08/21 11/08/21 04:20 04:20 06:16 WBC 22.1 H RBC 3.01 L Hgb 8.1 L Hct 25.6 L MCH 27 L RDW 15.4 H Plt Count Lymph % (Auto) Lymph # (Auto) Walsh # (Auto) Seg Neutrophils % Seg Neuts % (Manual) Lymphocytes % (Manual) Nucleated RBC % Seg Neutrophils # Seg Neutrophils # Man Monocytes # (Manual) PT INR APTT D-Dimer Heparin Anti-Xa Level ABG pH ABG pO2 ABG HCO3 ABG O2 Saturation ABG Base Excess ABG Hemoglobin Oxyhemoglobin Sodium 151 H Potassium 3.1 L D Chloride 107.3 H Carbon Dioxide 31 H BUN 82 H Creatinine 1.8 H Glucose 232 H POC Glucose 198 H Hemoglobin A1c Lactic Acid Calcium 8.1 L Phosphorus Magnesium Ferritin AST ALT Alkaline Phosphatase Lactate Dehydrogenase Troponin T C-Reactive Protein Total Protein Albumin LDL Cholesterol Direct Urine Creatinine Urine Total Protein Salicylates Acetaminophen 11/08/21 11/08/21 11:38 12:00 WBC RBC Hgb Hct MCH RDW Plt Count Lymph % (Auto) Lymph # (Auto) Walsh # (Auto) Seg Neutrophils % Seg Neuts % (Manual) Lymphocytes % (Manual) Nucleated RBC % Seg Neutrophils # Seg Neutrophils # Man Monocytes # (Manual) PT INR APTT D-Dimer Heparin Anti-Xa Level ABG pH ABG pO2 ABG HCO3 ABG O2 Saturation ABG Base Excess ABG Hemoglobin Oxyhemoglobin Sodium Potassium 3.0 L Chloride Carbon Dioxide BUN Creatinine Glucose POC Glucose 190 H Hemoglobin A1c Lactic Acid Calcium Phosphorus Magnesium Ferritin AST ALT Alkaline Phosphatase Lactate Dehydrogenase Troponin T C-Reactive Protein Total Protein Albumin LDL Cholesterol Direct Urine Creatinine Urine Total Protein Salicylates Acetaminophen Allied health notes reviewed: RT
[2021-11-08] MEDS: fentaNYL 100 MCG/2 ML INJ IV PRN (20:09)
[2021-11-08] MEDS: INSULIN GLARGINE 100 UNITS/ML SUB-Q SCH (21:34)
[2021-11-08 21:59] LABS: Calcium 8.2 mg/dL (8.4-10.2)
[2021-11-08] MEDS ORDERED: QUEtiapine 25 MG TAB PO SCH (22:00)
[2021-11-09] MEDS: fentaNYL 100 MCG/2 ML INJ IV PRN (00:01)
[2021-11-09] MEDS: METOPROLOL TARTRATE 50 MG TAB FEEDTUBE SCH ×4 (00:17→17:22)
--- NOTE | 2021-11-09 00:31 | XRay Report ---
CHEST 1 VIEW INDICATION / CLINICAL INFORMATION: Chest tube dislodged. COMPARISON: Chest x-ray 11/08/2021 FINDINGS: SUPPORT DEVICES: Endotracheal tube terminates at the sternoclavicular junction. Esophagogastric tube in fundus. Right IJ central venous catheter near the cavoatrial junction. Right side chest tube no lo nger identified. HEART / MEDIASTINUM: Heart size and mediastinal contours are stable. LUNGS / PLEURA: Persistent low lung volumes with bibasilar opacities and mild elevation of right malini diaphragm. No pneumothorax. ADDITIONAL FINDINGS: No significant additional findings. IMPRESSION: 1. No adverse interval change in the chest status post removal of right-sided chest tube. No obvious right-sided pneumothorax. Stable tubes and lines. Signer Name: Martínez Rosenberg II, MD Signed: 11/09/2021 12:26 AM Workstation Name: [id number]
[2021-11-09] MEDS: INSULIN LISPRO 100 UNIT/ML SUB-Q SCH ×4 (01:06→17:22)
[2021-11-09] MEDS: DEXTROSE 5% IN WATER 1,000 ML IV SCH ×2 (01:25→17:22)
[2021-11-09] MEDS: FREE WATER PO SCH ×5 (01:26→23:00)
[2021-11-09] MEDS: HEPARIN/ 0.45% NACL DRIP 25,000 UNIT/500 ML BAG IV SCH ×2 (04:17→19:49)
[2021-11-09] MEDS: hydrALAZINE 25 MG TAB PO SCH ×3 (05:09→21:20)
[2021-11-09 08:19] LABS: Hematocrit 26.6 % (30.3-42.9); Hemoglobin 8.4 gm/dl (10.1-14.3); Mean Corpuscular HGB Conc 32 % (30-34); Mean Corpuscular Volume 84 fl (79-97); Platelet Count 239 K/mm3 (140-440); Red Blood Count 3.18 M/mm3 (3.65-5.03); Red Cell Distribution Width 15.3 % (13.2-15.2)
[2021-11-09] MEDS ORDERED: POTASSIUM CHLORIDE 20 MEQ PACKET FEEDTUBE SCH (08:30)
[2021-11-09 08:54] LABS: Calcium 8.3 mg/dL (8.4-10.2)
[2021-11-09 09:07] LABS: ABG Base Excess 8.7 mmol/L (-2.0-3.0); ABG HCO3 33.8 mmol/L (20.0-26.0); ABG Methemoglobin 0.5 % (0.0-1.5); ABG PH 7.447 pH Units (7.350-7.450); ABG PO2 73.2 mm Hg (80.0-90.0)
[2021-11-09] MEDS: POTASSIUM CHLORIDE 20 MEQ 20 MEQ/100 ML BAG IV SCH ×2 (09:53→10:58)
[2021-11-09] MEDS: AMIODARONE 200 MG TAB PO SCH (09:53)
[2021-11-09] MEDS: FAMOTIDINE 10 MG TAB PO SCH ×2 (09:54→21:01)
[2021-11-09] MEDS ORDERED: QUEtiapine 25 MG TAB PO SCH (10:00)
--- NOTE | 2021-11-09 10:53 | Progress Note ---
<SHAMEKA JOHNSTON - Last Filed: 11/09/21 18:05> Assessment and Plan Assessment and plan: This is a 66-year-old female with past medical history of HTN and Obesity admitted for septic shock, s/p cardiac arrest with ROSC in the field now intubated and on ventilatory support Hospital Course to Date: 10/30: Intubated and sedated, on fentanyl gtt. Open eyes spontaneously but does not follow any commands. On vasopressors, titrate as tolerated for MAP above 65. Patient febrile overnight, continue empiric IV Abx, culture data and COVID PCR pending. Patient is also s/p CT placement due to spontaneous pneumothorax. 2D echo is pending and Cardiology is consulted. 10/31: Patient remains intubated and following commands. Levophed drip stopped and potassium repleted. Patient started on tube feeding. Remains in soft bilateral restraints. 11/01: RN noted ST changes on BSM and 12 lead EKG obtained which showed ST. Given Ativan 1mg for agitation as she is maxed on fentanyl drip and IV push fentanyl d id not seem to help. Patient was started on CPAP this morning by RT but remained on fentanyl drip and was having periods of apnea. Plan was to retry CPAP again in the p.m. with sedation off. 11/02: Rate increased r/t hypercapnea on ABG, sedation reduced. Given kionex for hyperkalemia and was started on levophed overnight for hypotension. 11/03: Overnight patient had tachycardia and was given Cardizem and Lopressor. Lopressor was repeated in the a.m. due to tachycardia. Patient will be started on amiodarone with a bolus per cardiology. Patient started on normal saline per liter per [facility] and steroids for angioedema. Noted to have bright red blood when suctioned from [place] ETT. Remains on heparin drip as H/H is stable for now. Will reevaluate. Fentanyl drip was restarted last night due to agitation. Dr. Flores updated family today 11/04: Patient was sedated on fentanyl however off sedation is able to follow commands, a.m. labs completed in the p.m. and show hyperkalemia with increased renal function studies. Nephrology, neurology consulted by [facility]. Given Kayexalate, insulin and D50 for hyperkalemia. Patient remains on amiodarone. 11/05: Patient needed to be sedated on fentanyl again to today. overnight krishna was replaced. Hyperkalemia->given kionex 60 for 5.6. Repeat K 6-> Dr. Grant informed and requested bumex, kionex, insulin, d50, calcium gluconate and sodium bicarb with repeat BMP in 2 hours which were placed. HR remains elevated. 11/06: Patient remained in atrial fibrillation/atrial flutter with heart rate in the 150s despite being on amnio drip and was given amnio bolus, Cardizem bolus and started on Cardizem drip by cardiology. Patient is on beta-blockers p.o. scheduled and to feedings changed to Nepro. Kayexalate was given in the morning by nephrology due to hyperkalemia. 11/07: Patient is only responsive to mild stimuli, precedex added in an attempt to wean off fentanyl gtt to better assess her mental status. Neurology also on consult, pending MRI and EEG. Patient remains in Aflutter this am, HR in the 80 to 90s, still on amiodarone and heparin gtt. 11/08: Fentanyl gtt is off, only on precedex gtt. Patient is still not following any commands. MRI brain and EEG completed. Neuro recommendations noted, sedatives agents decreased. FWF added for hypernatremia and low K repleted, repeat labs ordered. Placed a call and spoke with patient's daughter, Eva Brown . She was updated on patient's conditions and status. All questions and concerns were voiced at this time. 11/09: Patient is awake and alert this am, following commands and appropriate. Remains on precedex gtt, plan for possible PST today. Hypertensive overnight, meds adjusted by Cardio and PRN Hydralazine added for SBP greater than 160. CT dislodged overnight, CXR is stable with no significant change. F/U CXR in the am. Patient's daughter, Eva Brown, visited with patient. She was updated on patient's status and goal of care for today. All questions and concerns were voiced at this time. Assessment and Plan #Hypertension #New Onset Atrial fibrillation/atrial flutter #HFrEF #s/p Cardiac Arrest with ROSC - Outside hospital cardiac arrest with ROSC - New onset Afib/Aflutter--> SR on the monitor this am - Cardiology consulted, appreciate recommendations - S/p Cardizem gtt- d/c due to low EF; now on PO Amio - 10/30 Echocardiogram shows left ventricular systolic function severely decreased, LVEF 25 to 30%, no pericardial effusion - Hypertensive overnight, meds adjusted by Cardio - PRN Hydralazive for SBP greater than 160 - Continue BB per Cardio - Continue blood pressure monitor per protocol - Strick I&Os and daily weight #Acute Hypoxemic Respiratory Failure #Spontaneous Pneumothorax s/p CT placement - Intubated in the filed post cardiac arrest on 10/29 - Vent Setting:PRVC-35%,8,14,500 - This Am ABG noted - CCM consulted, appreciate recommendations - VAP bundle addressed - Aspiration precaution HOB above 30 - Daily SBT and SAT trials as tolerated - Daily ABG and CXR - Continue SPO2 monitoring for SPO2 goal above 92% #Acute Metabolic Encephalopathy - Awake and appropriate this am, following commands - Remains on prexcedex gtt, Titrate for RASS goal of 0 to -1 - Neurology on consult - EEG and MRI noted, Neuro recommend to cut down on sedation as possible - Continue to hold Seroquel - Avoid benzodiazepine to reduce the possibility of delirium - Prn analgesia for CPOT greater than 3 #Acute Kidney Injury (SIERRA) most likely ATN - Due to hypoperfusion/hypotension and septic shock - Nephrology consulted, appreciate recommendations - Strict intake and output - Avoid nephrotoxic medications; Renally dose medications - Monitor and replace electrolytes as needed - Trend BMP #Septic Shock #Leukocytosis - s/p cardiac arrest with ROSC in the field - Presented febrile, with elevated lactic, leukocytosis, and hypotnesive required pressors - Now afebrile and off pressors - Blood culture, urine and sputum culture are negative - WBCs downtrending - Patient completed X5days course of IV Abx - Will continue to trend CBC #Acute BLE DVT - D-Dimer [place] [id number] on admit - CTA chest with no evidence of PE - 10/30 BLE doppler + acute DVT in the left posterior tibial vein and bilateral peroneal veins - Remains on Heparin gtt per protocol #Transaminitis #Shock liver - Most likely reactive s/p cardiac arrest - LFT down trending - Continue to trend LTFs #Hyperglycemia - Hbg A1C 6.7 - Continue SSI and lantus qHS - Avoid Hypoglycemia The high probability of a clinically significant, sudden or life threatening deterioration of the [multiple] system(s) required my full and direct attention, intervention and personal management. The aggregate critical care time was [60] minutes. This time is in addition to time spent performing reported procedures but includes the following: [x] Data Review and interpretation [x] Patient assessment and monitoring of vital signs [x] Documentation [x] Medication orders and management Disposition Plan: ICU Total Time Spent with Patient (Minutes): 60 History Interval history: Patient seen and examined at the bedside. Remains intubated, awake and alert this am, following commands. Remains on precedex gtt. Rt. CT came out overnight, CXR is stable. Hospitalist Physical - Constitutional Vitals: Temp Pulse Resp BP Pulse Ox 99.3 F 84 17 184/96 99 11/09/21 08:00 11/09/21 10:00 11/09/21 10:00 11/09/21 10:00 11/09/21 10:00 General appearance: Present: no acute distress, obese, other (Intubated ) - EENT Eyes: Present: PERRL ENT: hearing intact - Neck Neck: Present: normal ROM - Respiratory Respiratory effort: normal Respiratory: bilateral: rhonchi - Cardiovascular Rhythm: regular Heart Sounds: Present: S1 & S2 - Extremities Extremities: no ischemia, pulses intact, pulses symmetrical Extremity abnormal: edema - Peripheral Assessment Generalized Edema Type: Pitting Edema Degree: 2+ Capillary Refill: < 3 seconds Skin Temperature: Warm Peripheral Pulses: within normal limits - Abdominal General gastrointestinal: soft, non-distended, normal bowel sounds - Integumentary Integumentary: Present: warm, dry - Psychiatric Psychiatric: appropriate mood/affect, cooperative - Neurologic Neurologic: moves all extremities, other (Following commands) - Allied Health Allied health notes reviewed: nursing, case management HEART Score - HEART Score Troponin: Troponin T 1.150 ng/mL (0.00-0.029) H* D 10/29/21 22:34 Results - Labs CBC & Chem 7: 11/09/21 04:51 11/09/21 16:10 Labs: Laboratory Last Values WBC 27.6 K/mm3 (4.5-11.0) H 11/09/21 04:51 RBC 3.18 M/mm3 (3.65-5.03) L 11/09/21 04:51 Hgb 8.4 gm/dl (10.1-14.3) L 11/09/21 04:51 Hct 26.6 % (30.3-42.9) L 11/09/21 04:51 MCV 84 fl (79-97) 11/09/21 04:51 MCH 27 pg (28-32) L 11/09/21 04:51 MCHC 32 % (30-34) 11/09/21 04:51 RDW 15.3 % (13.2-15.2) H 11/09/21 04:51 Plt Count 239 K/mm3 (140-440) 11/09/21 04:51 Lymph % (Auto) 6.2 % (13.4-35.0) L 10/30/21 04:30 [place] % (Auto) 5.5 % (0.0-7.3) 10/30/21 04:30 Eos % (Auto) 0.1 % (0.0-4.3) 10/30/21 04:30 Baso % (Auto) 0.1 % (0.0-1.8) 10/30/21 04:30 Lymph # (Auto) 1.0 K/mm3 (1.2-5.4) L 10/30/21 04:30 [place] # (Auto) 0.9 K/mm3 (0.0-0.8) H 10/30/21 04:30 Eos # (Auto) 0.0 K/mm3 (0.0-0.4) 10/30/21 04:30 Baso # (Auto) 0.0 K/mm3 (0.0-0.1) 10/30/21 04:30 Add Manual Diff Complete 11/07/21 06:30 Total Counted 100 11/07/21 06:30 Seg Neutrophils % 88.1 % (40.0-70.0) H 10/30/21 04:30 Seg Neuts % (Manual) 77.0 % (40.0-70.0) H 11/07/21 06:30 Band Neutrophils % 1.0 % 11/07/21 06:30 Lymphocytes % (Manual) 11.0 % (13.4-35.0) L 11/07/21 06:30 Reactive Lymphs % (Man) 3.0 % 11/07/21 06:30 Monocytes % (Manual) 2.0 % (0.0-7.3) 11/07/21 06:30 Eosinophils % (Manual) 0 % (0.0-4.3) 11/07/21 06:30 Basophils % (Manual) 0 % (0.0-1.8) 11/07/21 06:30 Metamyelocytes % 1.0 % 11/07/21 06:30 Myelocytes % 5.0 % 11/07/21 06:30 Promyelocytes % 0 % 11/07/21 06:30 Blast Cells % 0 % 11/07/21 06:30 Nucleated RBC % 2.0 % (0.0-0.9) H 11/07/21 06:30 Seg Neutrophils # 14.2 K/mm3 (1.8-7.7) H 10/30/21 04:30 Seg Neutrophils # Man 12.3 K/mm3 (1.8-7.7) H 11/07/21 06:30 Band Neutrophils # 0.2 K/mm3 11/07/21 06:30 Lymphocytes # (Manual) 1.8 K/mm3 (1.2-5.4) 11/07/21 06:30 Abs React Lymphs (Man) 0.5 K/mm3 11/07/21 06:30 Monocytes # (Manual) 0.3 K/mm3 (0.0-0.8) 11/07/21 06:30 Eosinophils # (Manual) 0.0 K/mm3 (0.0-0.4) 11/07/21 06:30 Basophils # (Manual) 0.0 K/mm3 (0.0-0.1) 11/07/21 06:30 Metamyelocytes # 0.2 K/mm3 11/07/21 06:30 Myelocytes # 0.8 K/mm3 11/07/21 06:30 Promyelocytes # 0.0 K/mm3 11/07/21 06:30 Blast Cells # 0.0 K/mm3 11/07/21 06:30 WBC Morphology Not Reportable 11/07/21 06:30 Hypersegmented Neuts Not Reportable 11/07/21 06:30 Hyposegmented Neuts Not Reportable 11/07/21 06:30 Hypogranular Neuts Not Reportable 11/07/21 06:30 Smudge Cells Not Reportable 11/07/21 06:30 Toxic Granulation Not Reportable 11/07/21 06:30 Toxic Vacuolation Not Reportable 11/07/21 06:30 Dohle Bodies Not Reportable 11/07/21 06:30 Pelger-Huet Anomaly Not Reportable 11/07/21 06:30 Manny Rods Not Reportable 11/07/21 06:30 Platelet Estimate Consistent w auto 11/07/21 06:30 Clumped Platelets Not Reportable 11/07/21 06:30 Plt Clumps, EDTA Not Reportable 11/07/21 06:30 Large Platelets 1+ 11/07/21 06:30 Giant Platelets Not Reportable 11/07/21 06:30 Platelet Satelliting Not Reportable 11/07/21 06:30 Plt Morphology Comment Not Reportable 11/07/21 06:30 RBC Morphology Not Reportable 11/07/21 06:30 Dimorphic RBCs Not Reportable 11/07/21 06:30 Polychromasia Not Reportable 11/07/21 06:30 Hypochromasia 1+ 11/07/21 06:30 Poikilocytosis Not Reportable 11/07/21 06:30 Anisocytosis Not Reportable 11/07/21 06:30 Microcytosis Not Reportable 11/07/21 06:30 Macrocytosis Not Reportable 11/07/21 06:30 Spherocytes 1+ 11/07/21 06:30 Pappenheimer Bodies Not Reportable 11/07/21 06:30 Sickle Cells Not Reportable 11/07/21 06:30 Target Cells 1+ 11/07/21 06:30 Tear Drop Cells Not Reportable 11/07/21 06:30 Ovalocytes Not Reportable 11/07/21 06:30 Helmet Cells Not Reportable 11/07/21 06:30 [place] Bodies Not Reportable 11/07/21 06:30 [place] Rings Not Reportable 11/07/21 06:30 [place] Cells Not Reportable 11/07/21 06:30 Bite Cells Not Reportable 11/07/21 06:30 Crenated Cell Not Reportable 11/07/21 06:30 Elliptocytes Not Reportable 11/07/21 06:30 Acanthocytes (Spur) Not Reportable 11/07/21 06:30 Rouleaux Not Reportable 11/07/21 06:30 Hemoglobin C Crystals Not Reportable 11/07/21 06:30 Schistocytes Not Reportable 11/07/21 06:30 Malaria parasites Not Reportable 11/07/21 06:30 Magdy Bodies Not Reportable 11/07/21 06:30 Hem Pathologist Commnt No 11/07/21 06:30 PT 17.2 Sec. (12.2-14.9) H 10/30/21 16:30 INR 1.27 (0.87-1.13) H 10/30/21 16:30 APTT 44.4 Sec. (24.2-36.6) H 10/30/21 16:30 D-Dimer > 97020 ng/mlDDU (0-234) H 10/30/21 Unknown Heparin Anti-Xa Level 0.18 U.I./ml (0.3-0.7) L 11/09/21 04:51 ABG pH 7.447 pH Units (7.350-7.450) 11/09/21 08:45 ABG pCO2 50.0 mm Hg 11/09/21 08:45 ABG pO2 73.2 mm Hg (80.0-90.0) L 11/09/21 08:45 ABG HCO3 33.8 mmol/L (20.0-26.0) H 11/09/21 08:45 ABG O2 Saturation 96.0 % (95.0-99.0) 11/09/21 08:45 ABG O2 Content 11.3 (0.0-44) 11/09/21 08:45 ABG Base Excess 8.7 mmol/L (-2.0-3.0) H 11/09/21 08:45 ABG Hemoglobin 8.5 gm/dl (12.0-16.0) L 11/09/21 08:45 ABG Carboxyhemoglobin 1.5 % (0.0-5.0) 11/09/21 08:45 ABG Methemoglobin 0.5 % (0.0-1.5) 11/09/21 08:45 Oxyhemoglobin 94.1 % (95.0-99.0) L 11/09/21 08:45 FiO2 35 % 11/09/21 08:45 Sodium 148 mmol/L (137-145) H 11/09/21 04:51 Potassium 2.7 mmol/L (3.6-5.0) L* 11/09/21 04:51 Chloride 104.7 mmol/L (98-107) 11/09/21 04:51 Carbon Dioxide 30 mmol/L (22-30) 11/09/21 04:51 Anion Gap 16 mmol/L 11/09/21 04:51 BUN 59 mg/dL (7-17) H 11/09/21 04:51 Creatinine 1.4 mg/dL (0.6-1.2) H 11/09/21 04:51 Estimated GFR 45 ml/min 11/09/21 04:51 BUN/Creatinine Ratio 42 % 11/09/21 04:51 Glucose 143 mg/dL (65-100) H 11/09/21 04:51 POC Glucose 166 mg/dL (70-105) H 11/09/21 05:52 Hemoglobin A1c 6.7 % (4-6) H 10/31/21 04:30 Lactic Acid 0.70 mmol/L (0.7-2.0) 10/31/21 15:45 Calcium 8.3 mg/dL (8.4-10.2) L 11/09/21 04:51 Phosphorus 3.30 mg/dL (2.5-4.5) 11/09/21 04:51 Magnesium 2.20 mg/dL (1.7-2.3) 11/09/21 04:51 Ferritin 208.4 ng/mL (10.0-200.0) H 10/30/21 Unknown Total Bilirubin < 0.20 mg/dL (0.1-1.2) 11/06/21 02:35 AST 21 units/L (5-40) 11/06/21 02:35 ALT 77 units/L (7-56) H 11/06/21 02:35 Alkaline Phosphatase 84 units/L (35-129) 11/06/21 02:35 Ammonia 31.0 umol/L (25-60) 10/29/21 15:10 Lactate Dehydrogenase 469 units/L (91-180) H 10/30/21 Unknown Troponin T 1.150 ng/mL (0.00-0.029) H* D 10/29/21 22:34 C-Reactive Protein 13.40 mg/dL (0.00-1.30) H 10/30/21 Unknown Total Protein 6.3 g/dL (6.3-8.2) 11/06/21 02:35 Albumin 3.0 g/dL (3.9-5) L 11/06/21 02:35 Albumin/Globulin Ratio 0.9 % 11/06/21 02:35 Triglycerides 68 mg/dL (2-149) 10/29/21 19:40 Cholesterol 98 mg/dL (50-199) 10/29/21 19:40 LDL Cholesterol Direct 43 mg/dL (50-130) L 10/29/21 19:40 HDL Cholesterol 50 mg/dL (40-59) 10/29/21 19:40 Cholesterol/HDL Ratio 1.96 % 10/29/21 19:40 Procalcitonin 61.95 ng/mL (<0.15) 10/30/21 Unknown TSH 3.080 mlU/mL (0.270-4.200) 10/29/21 15:10 Urine Color Straw (Yellow) 10/29/21 18:15 Urine Turbidity Clear (Clear) 10/29/21 18:15 Urine pH 7.0 (5.0-7.0) 10/29/21 18:15 Ur Specific [place] 1.018 (1.003-1.030) 10/29/21 18:15 Urine Protein 100 mg/dl mg/dL (Negative) 10/29/21 18:15 Urine Glucose (UA) 150 mg/dL (Negative) 10/29/21 18:15 Urine Ketones Neg mg/dL (Negative) 10/29/21 18:15 Urine Blood Mod (Negative) 10/29/21 18:15 Urine Nitrite Neg (Negative) 10/29/21 18:15 Urine Bilirubin Neg (Negative) 10/29/21 18:15 Urine Urobilinogen < 2.0 mg/dL (<2.0) 10/29/21 18:15 Ur Leukocyte Esterase Neg (Negative) 10/29/21 18:15 Urine WBC (Auto) 5.0 /HPF (0.0-6.0) 10/29/21 18:15 Urine RBC (Auto) 2.0 /HPF (0.0-6.0) 10/29/21 18:15 U Epithel Cells (Auto) < 1.0 /HPF (0-13.0) 10/29/21 18:15 Urine Mucus Few /HPF 10/29/21 18:15 Urine Eosinophils None seen (None Seen) 11/04/21 Unknown Urine Creatinine 190.9 mg/dL (0.1-20.0) H 11/04/21 Unknown Protein/Creatinin Ratio 0.90 11/04/21 Unknown Urine Sodium 10 mmol/L 11/04/21 Unknown Urine Total Protein 172 mg/dL (5-11.8) H 11/04/21 Unknown Salicylates < 0.3 mg/dL (2.8-20.0) L 10/29/21 15:10 Urine Opiates Screen Negative 10/29/21 18:15 Urine Methadone Screen Negative 10/29/21 18:15 Acetaminophen 5.0 ug/mL (10.0-30.0) L 10/29/21 15:10 Ur Barbiturates Screen Negative 10/29/21 18:15 Ur Phencyclidine Scrn Negative 10/29/21 18:15 Ur Amphetamines Screen Negative 10/29/21 18:15 U Benzodiazepines Scrn Negative 10/29/21 18:15 Urine Cocaine Screen Negative 10/29/21 18:15 U Marijuana (THC) Screen Negative 10/29/21 18:15 Drugs of Abuse Note Disclamer 10/29/21 18:15 Plasma/Serum Alcohol < 0.01 % (0-0.07) 10/29/21 15:10 Coronavirus (PCR) Negative (Negative) 10/30/21 Unknown Blood Type O POSITIVE 10/29/21 15:10 Antibody Screen Negative 10/29/21 15:10 Krishna/IV: Voiding Method Indwelling Catheter Active Medications - Current Medications Current Medications: Generic Name Dose Route Start Last Admin Trade Name Freq PRN Reason Stop Dose Admin Acetaminophen 650 mg 10/29/21 17:04 11/03/21 11:35 Acetaminophen 325 Mg Tab PO 650 mg Q6H PRN Administration Pain, Mild (1-3) Acetaminophen 650 mg 10/29/21 17:04 Acetaminophen 650 Mg Rect Supp MS Q6H PRN Pain MILD(1-3)/Fever >100.5/NIEVES Amiodarone HCl 200 mg 11/08/21 10:00 11/09/21 09:53 Amiodarone 200 Mg Tab PO 200 mg QDAY RAMON Administration Lipase/Protease/Amylase 1 each 10/31/21 08:56 Lipase 10,500/Protease 25,000/Amylase 43,750 (Units) Dr Ivory FEEDTUBE PRN PRN For Clogged Feeding Tube Dextrose 0 ml 11/04/21 13:48 11/05/21 15:29 Dextrose 10% *Hypoglycemia IV 250 ml PRN PRN Administration Hypoglycemia Famotidine 10 mg 11/06/21 10:00 11/09/21 09:54 Famotidine 10 Mg Tab PO 10 mg BID RAMON Administration Fentanyl 50 mcg 11/04/21 14:32 11/09/21 00:01 Fentanyl 100 Mcg/2 Ml Inj IV 50 mcg Q2H PRN Administration Pain, Moderate (4-6) Heparin Sodium (Porcine) 4,300 unit 10/30/21 17:00 Heparin 10,000 Units/10 Ml Vial 40 unit/kg (4300 unit) IV Q6H PRN Anti-Xa Assay < 0.1 units/ml Hydralazine HCl 50 mg 11/09/21 14:00 Hydralazine 25 Mg Tab PO Q8HR RAMON Hydrophilic Ointment 1 applic 10/29/21 14:29 11/09/21 08:51 Lip Therapy Vaseline TP 1 applic Q2HR PRN Administration Dry Lips NORepinephrine/NS 8 MG-250 ML 8 mg in 250 mls @ 3.75 mls/hr 10/29/21 15:00 0 11/04/21 07:00 Norepinephrine/Ns 8 Mg-250 Ml (Double Conc) IV 0 mcg/min TITRATE RAMON 0 mls/hr Titration Protocol 2 MCG/MIN Heparin Sodium/Sodium Chloride 25,000 unit in 500 mls @ 30 mls/hr 10/30/21 17:00 11/09/21 10:37 Heparin/ 0.45% Nacl-25,000 Unit/500 Ml IV 1,500 units/hr TITR RAMON 30 mls/hr Titration Protocol 1,500 UNITS/HR Dexmedetomidine HCl 200 mcg/ 50 mls @ 5.335 mls/hr 11/07/21 15:00 11/09/21 08:15 Sodium Chloride IV 0.9 mcg/kg/hr TITRATE RAMON 24.008 mls/hr Administration Protocol 0.2 MCG/KG/HR Dextrose 1,000 mls @ 75 mls/hr 11/08/21 11:00 11/09/21 01:25 D5w IV 75 mls/hr DIRECT RAMON Administration Potassium Chloride 20 meq in 100 mls @ 100 mls/hr 11/09/21 09:00 11/09/21 09:53 Kcl 20meq/100ml IV 11/09/21 10:59 100 mls/hr Q1H RAMON Administration Insulin Glargine 15 units 11/08/21 22:00 11/08/21 21:34 Insulin Glargine 100 Units/Ml SUB-Q 15 units QHS RAMON Administration Insulin Human Lispro 0 unit 10/30/21 16:00 11/09/21 06:30 Insulin Lispro 100 Unit/Ml SUB-Q 3 unit Q6HR RAMON Administration Protocol Isosorbide Mononitrate 30 mg 11/08/21 10:00 11/09/21 09:53 Isosorbide Mononitrate Er 30 Mg Tab PO 30 mg QDAY RAMON Administration Metoprolol Tartrate 50 mg 11/07/21 12:00 11/09/21 06:24 Metoprolol Tartrate 50 Mg Tab FEEDTUBE 50 mg Q6H RAMON Administration Multi-Ingred Cream/Lotion/Oil/Oint 1 applic 10/29/21 14:29 11/06/21 09:25 Mineral Oil/Petrolatum, White Ophth Oint 3.5 Gm OU 1 applic Q4HR PRN Administration Dry Eye(s) Potassium Chloride 20 meq 11/09/21 08:30 11/09/21 08:51 Potassium Chloride 20 Meq Packet FEEDTUBE 11/09/21 12:00 20 meq ONCE@0830 RAMON Administration Senna/Docusate Sodium 1 tab 10/29/21 15:00 11/08/21 21:34 Sennosides/Docusate Sodium 8.6/50 Mg Tab FEEDTUBE 1 tab BID RAMON Administration Simple Syrup 15 ml 10/31/21 08:56 Simple Syrup 15 Ml FEEDTUBE PRN PRN Hypoglycemia Simple Syrup 30 ml 10/31/21 08:56 Simple Syrup 15 Ml FEEDTUBE PRN PRN Hypoglycemia Sodium Bicarbonate 325 mg 10/31/21 08:56 Sodium Bicarbonate 325 Mg Tab FEEDTUBE PRN PRN For Clogged Feeding Tube Sodium Chloride 10 ml 10/29/21 22:00 11/09/21 09:54 Sodium Chloride 0.9% 10 Ml Flush Syringe IV 10 ml BID RAMON Administration Sodium Chloride 10 ml 10/29/21 17:04 Sodium Chloride 0.9% 10 Ml Flush Syringe IV PRN PRN LINE FLUSH Nutrition/Malnutrition Assess - Dietary Evaluation Nutrition/Malnutrition Findings: Nutrition Notes Start: 10/30/21 09:50 Freq: Status: Active Protocol: Document 11/08/21 09:54 MEENU (Rec: 11/08/21 10:20 MEENU [id number]) Nutrition Notes Initial or Follow up Reassessment Current Diagnosis Acute Kidney Injury,Sepsis, Heart Failure,Respiratory Failure Other Pertinent Diagnosis SIERRA/ATN, s/p Cardiac Arrest, DVT, Anemia, Hyperkalemia. Current Diet TF-Nepro w/CARBSTEADY @ 37 ml/ hr (since D 11/06). Labs/Tests 11/08: Na 151, K 3.1, Cl 107.3 , CO2 31, BUN 82, Crea 1.8, Glu 232, Ca 8.1. Pertinent Medications 11/08: Insulin, others nutritionally unremarkable. Height 5 ft 10 in Weight 106.7 kg [place] Body Weight (kg) 68.18 BMI 33.7 Weight change and time frame No body weight change reported in 1 week. Weight Status Obese Subjective/Other Information RD consult for routine F/U on TF tolerance. TF continues as prescribed and well tolerated, according to RN over the phone. Pt continues on Mechanical ventilation. Percent of energy/protein needs met: Prescribed Nepro w/CARBSTEADY @ 37 ml/hr provides for energy /protein needs (1,598 Kcal/72 g) during LOS, 100% Kcal; 100% AA. Burn Absent Trauma Absent GI Symptoms None Food Allergy No Skin Integrity/Comment Clear, warm, dry. Current % PO Other Minimum of two criteria No #1 Nutrition Diagnosis Inadequate oral intake Diagnosis Progress(for reassessment Continues documentation) Is patient on ventilator? Yes Is Patient Ambulatory and/or Out of Bed No REE-([facility]-confined to bed) 2022.848 Kcal/Kg value to use for calculation 15 Approximate Energy Requirements Using 1601 kcal/Kg Calculation Used for Recommendations Kcal/kg Additional Notes Protein: 0.8-1.2 g/Kg IBW; 70- 105 g/day. Fluids: 1 ml/Kcal, or as per MD. Nutrition Intervention Nutrition Support: Continue Nepro w/CARBSTEADY @ 37 ml/hr. Flush: 160 ml water Q 4 hr, or as per MD. Kcal 1,598 Protein (gm) 72 Carbohydrates (gm) 143 Fat (gm) 85 Fluid (mL) 646 Fiber (gm) 11 % RDI: 100% Kcal; 100% AA. Goal #1 Provide at least 75% of energy /protein needs through Enteral Feeding during LOS. Goal #2 Maintain body weight within +/ -3% of admission body weight during LOS. Follow-Up By: 11/15/21 Additional Comments Continue monitoring TF tolerance and BM. <ABRAM DIAS - Last Filed: 11/10/21 08:08> Assessment and Plan Assessment and plan: I saw and evaluated the patient. I agree with the findings and the plan of care as documented in the Nurse Practitioner's~note, with the following corrections and additions. Hospitalist Physical - Constitutional Vitals: Temp Pulse Resp BP Pulse Ox 100.4 F H 72 21 164/83 100 11/10/21 07:45 11/10/21 07:08 11/10/21 07:00 11/10/21 07:08 11/10/21 07:08 HEART Score - HEART Score Troponin: Troponin T 1.150 ng/mL (0.00-0.029) H* D 10/29/21 22:34 Results - Labs CBC & Chem 7: 11/10/21 04:17 11/10/21 04:17 Labs: Laboratory Last Values WBC 24.5 K/mm3 (4.5-11.0) H 11/10/21 04:17 RBC 2.75 M/mm3 (3.65-5.03) L 11/10/21 04:17 Hgb 7.5 gm/dl (10.1-14.3) L 11/10/21 04:17 Hct 22.9 % (30.3-42.9) L 11/10/21 04:17 MCV 83 fl (79-97) 11/10/21 04:17 MCH 27 pg (28-32) L 11/10/21 04:17 MCHC 33 % (30-34) 11/10/21 04:17 RDW 15.1 % (13.2-15.2) 11/10/21 04:17 Plt Count 231 K/mm3 (140-440) 11/10/21 04:17 Lymph % (Auto) 6.2 % (13.4-35.0) L 10/30/21 04:30 [place] % (Auto) 5.5 % (0.0-7.3) 10/30/21 04:30 Eos % (Auto) 0.1 % (0.0-4.3) 10/30/21 04:30 Baso % (Auto) 0.1 % (0.0-1.8) 10/30/21 04:30 Lymph # (Auto) 1.0 K/mm3 (1.2-5.4) L 10/30/21 04:30 [place] # (Auto) 0.9 K/mm3 (0.0-0.8) H 10/30/21 04:30 Eos # (Auto) 0.0 K/mm3 (0.0-0.4) 10/30/21 04:30 Baso # (Auto) 0.0 K/mm3 (0.0-0.1) 10/30/21 04:30 Add Manual Diff Complete 11/07/21 06:30 Total Counted 100 11/07/21 06:30 Seg Neutrophils % 88.1 % (40.0-70.0) H 10/30/21 04:30 Seg Neuts % (Manual) 77.0 % (40.0-70.0) H 11/07/21 06:30 Band Neutrophils % 1.0 % 11/07/21 06:30 Lymphocytes % (Manual) 11.0 % (13.4-35.0) L 11/07/21 06:30 Reactive Lymphs % (Man) 3.0 % 11/07/21 06:30 Monocytes % (Manual) 2.0 % (0.0-7.3) 11/07/21 06:30 Eosinophils % (Manual) 0 % (0.0-4.3) 11/07/21 06:30 Basophils % (Manual) 0 % (0.0-1.8) 11/07/21 06:30 Metamyelocytes % 1.0 % 11/07/21 06:30 Myelocytes % 5.0 % 11/07/21 06:30 Promyelocytes % 0 % 11/07/21 06:30 Blast Cells % 0 % 11/07/21 06:30 Nucleated RBC % 2.0 % (0.0-0.9) H 11/07/21 06:30 Seg Neutrophils # 14.2 K/mm3 (1.8-7.7) H 10/30/21 04:30 Seg Neutrophils # Man 12.3 K/mm3 (1.8-7.7) H 11/07/21 06:30 Band Neutrophils # 0.2 K/mm3 11/07/21 06:30 Lymphocytes # (Manual) 1.8 K/mm3 (1.2-5.4) 11/07/21 06:30 Abs React Lymphs (Man) 0.5 K/mm3 11/07/21 06:30 Monocytes # (Manual) 0.3 K/mm3 (0.0-0.8) 11/07/21 06:30 Eosinophils # (Manual) 0.0 K/mm3 (0.0-0.4) 11/07/21 06:30 Basophils # (Manual) 0.0 K/mm3 (0.0-0.1) 11/07/21 06:30 Metamyelocytes # 0.2 K/mm3 11/07/21 06:30 Myelocytes # 0.8 K/mm3 11/07/21 06:30 Promyelocytes # 0.0 K/mm3 11/07/21 06:30 Blast Cells # 0.0 K/mm3 11/07/21 06:30 WBC Morphology Not Reportable 11/07/21 06:30 Hypersegmented Neuts Not Reportable 11/07/21 06:30 Hyposegmented Neuts Not Reportable 11/07/21 06:30 Hypogranular Neuts Not Reportable 11/07/21 06:30 Smudge Cells Not Reportable 11/07/21 06:30 Toxic Granulation Not Reportable 11/07/21 06:30 Toxic Vacuolation Not Reportable 11/07/21 06:30 Dohle Bodies Not Reportable 11/07/21 06:30 Pelger-Huet Anomaly Not Reportable 11/07/21 06:30 Manny Rods Not Reportable 11/07/21 06:30 Platelet Estimate Consistent w auto 11/07/21 06:30 Clumped Platelets Not Reportable 11/07/21 06:30 Plt Clumps, EDTA Not Reportable 11/07/21 06:30 Large Platelets 1+ 11/07/21 06:30 Giant Platelets Not Reportable 11/07/21 06:30 Platelet Satelliting Not Reportable 11/07/21 06:30 Plt Morphology Comment Not Reportable 11/07/21 06:30 RBC Morphology Not Reportable 11/07/21 06:30 Dimorphic RBCs Not Reportable 11/07/21 06:30 Polychromasia Not Reportable 11/07/21 06:30 Hypochromasia 1+ 11/07/21 06:30 Poikilocytosis Not Reportable 11/07/21 06:30 Anisocytosis Not Reportable 11/07/21 06:30 Microcytosis Not Reportable 11/07/21 06:30 Macrocytosis Not Reportable 11/07/21 06:30 Spherocytes 1+ 11/07/21 06:30 Pappenheimer Bodies Not Reportable 11/07/21 06:30 Sickle Cells Not Reportable 11/07/21 06:30 Target Cells 1+ 11/07/21 06:30 Tear Drop Cells Not Reportable 11/07/21 06:30 Ovalocytes Not Reportable 11/07/21 06:30 Helmet Cells Not Reportable 11/07/21 06:30 [place] Bodies Not Reportable 11/07/21 06:30 [place] Rings Not Reportable 11/07/21 06:30 [place] Cells Not Reportable 11/07/21 06:30 Bite Cells Not Reportable 11/07/21 06:30 Crenated Cell Not Reportable 11/07/21 06:30 Elliptocytes Not Reportable 11/07/21 06:30 Acanthocytes (Spur) Not Reportable 11/07/21 06:30 Rouleaux Not Reportable 11/07/21 06:30 Hemoglobin C Crystals Not Reportable 11/07/21 06:30 Schistocytes Not Reportable 11/07/21 06:30 Malaria parasites Not Reportable 11/07/21 06:30 Magdy Bodies Not Reportable 11/07/21 06:30 Hem Pathologist Commnt No 11/07/21 06:30 PT 17.2 Sec. (12.2-14.9) H 10/30/21 16:30 INR 1.27 (0.87-1.13) H 10/30/21 16:30 APTT 44.4 Sec. (24.2-36.6) H 10/30/21 16:30 D-Dimer > 14495 ng/mlDDU (0-234) H 10/30/21 Unknown Heparin Anti-Xa Level 0.26 U.I./ml (0.3-0.7) L 11/10/21 02:00 ABG pH 7.447 pH Units (7.350-7.450) 11/09/21 08:45 ABG pCO2 50.0 mm Hg 11/09/21 08:45 ABG pO2 73.2 mm Hg (80.0-90.0) L 11/09/21 08:45 ABG HCO3 33.8 mmol/L (20.0-26.0) H 11/09/21 08:45 ABG O2 Saturation 96.0 % (95.0-99.0) 11/09/21 08:45 ABG O2 Content 11.3 (0.0-44) 11/09/21 08:45 ABG Base Excess 8.7 mmol/L (-2.0-3.0) H 11/09/21 08:45 ABG Hemoglobin 8.5 gm/dl (12.0-16.0) L 11/09/21 08:45 ABG Carboxyhemoglobin 1.5 % (0.0-5.0) 11/09/21 08:45 ABG Methemoglobin 0.5 % (0.0-1.5) 11/09/21 08:45 Oxyhemoglobin 94.1 % (95.0-99.0) L 11/09/21 08:45 FiO2 35 % 11/09/21 08:45 Sodium 145 mmol/L (137-145) 11/10/21 04:17 Potassium 2.9 mmol/L (3.6-5.0) L* 11/10/21 04:17 Chloride 105.9 mmol/L (98-107) 11/10/21 04:17 Carbon Dioxide 35 mmol/L (22-30) H 11/10/21 04:17 Anion Gap 7 mmol/L 11/10/21 04:17 BUN 48 mg/dL (7-17) H 11/10/21 04:17 Creatinine 1.2 mg/dL (0.6-1.2) 11/10/21 04:17 Estimated GFR 54 ml/min 11/10/21 04:17 BUN/Creatinine Ratio 40 % 11/10/21 04:17 Glucose 212 mg/dL (65-100) H 11/10/21 04:17 POC Glucose 203 mg/dL (70-105) H 11/10/21 05:01 Hemoglobin A1c 6.7 % (4-6) H 10/31/21 04:30 Lactic Acid 0.70 mmol/L (0.7-2.0) 10/31/21 15:45 Calcium 8.1 mg/dL (8.4-10.2) L 11/10/21 04:17 Phosphorus 3.00 mg/dL (2.5-4.5) 11/10/21 04:17 Magnesium 1.80 mg/dL (1.7-2.3) 11/10/21 04:17 Ferritin 208.4 ng/mL (10.0-200.0) H 10/30/21 Unknown Total Bilirubin < 0.20 mg/dL (0.1-1.2) 11/06/21 02:35 AST 21 units/L (5-40) 11/06/21 02:35 ALT 77 units/L (7-56) H 11/06/21 02:35 Alkaline Phosphatase 84 units/L (35-129) 11/06/21 02:35 Ammonia 31.0 umol/L (25-60) 10/29/21 15:10 Lactate Dehydrogenase 469 units/L (91-180) H 10/30/21 Unknown Troponin T 1.150 ng/mL (0.00-0.029) H* D 10/29/21 22:34 C-Reactive Protein 13.40 mg/dL (0.00-1.30) H 10/30/21 Unknown Total Protein 6.3 g/dL (6.3-8.2) 11/06/21 02:35 Albumin 3.0 g/dL (3.9-5) L 11/06/21 02:35 Albumin/Globulin Ratio 0.9 % 11/06/21 02:35 Triglycerides 68 mg/dL (2-149) 10/29/21 19:40 Cholesterol 98 mg/dL (50-199) 10/29/21 19:40 LDL Cholesterol Direct 43 mg/dL (50-130) L 10/29/21 19:40 HDL Cholesterol 50 mg/dL (40-59) 10/29/21 19:40 Cholesterol/HDL Ratio 1.96 % 10/29/21 19:40 Procalcitonin 61.95 ng/mL (<0.15) 10/30/21 Unknown TSH 3.080 mlU/mL (0.270-4.200) 10/29/21 15:10 Urine Color Straw (Yellow) 10/29/21 18:15 Urine Turbidity Clear (Clear) 10/29/21 18:15 Urine pH 7.0 (5.0-7.0) 10/29/21 18:15 Ur Specific [place] 1.018 (1.003-1.030) 10/29/21 18:15 Urine Protein 100 mg/dl mg/dL (Negative) 10/29/21 18:15 Urine Glucose (UA) 150 mg/dL (Negative) 10/29/21 18:15 Urine Ketones Neg mg/dL (Negative) 10/29/21 18:15 Urine Blood Mod (Negative) 10/29/21 18:15 Urine Nitrite Neg (Negative) 10/29/21 18:15 Urine Bilirubin Neg (Negative) 10/29/21 18:15 Urine Urobilinogen < 2.0 mg/dL (<2.0) 10/29/21 18:15 Ur Leukocyte Esterase Neg (Negative) 10/29/21 18:15 Urine WBC (Auto) 5.0 /HPF (0.0-6.0) 10/29/21 18:15 Urine RBC (Auto) 2.0 /HPF (0.0-6.0) 10/29/21 18:15 U Epithel Cells (Auto) < 1.0 /HPF (0-13.0) 10/29/21 18:15 Urine Mucus Few /HPF 10/29/21 18:15 Urine Eosinophils None seen (None Seen) 11/04/21 Unknown Urine Creatinine 190.9 mg/dL (0.1-20.0) H 11/04/21 Unknown Protein/Creatinin Ratio 0.90 11/04/21 Unknown Urine Sodium 10 mmol/L 11/04/21 Unknown Urine Total Protein 172 mg/dL (5-11.8) H 11/04/21 Unknown Salicylates < 0.3 mg/dL (2.8-20.0) L 10/29/21 15:10 Urine Opiates Screen Negative 10/29/21 18:15 Urine Methadone Screen Negative 10/29/21 18:15 Acetaminophen 5.0 ug/mL (10.0-30.0) L 10/29/21 15:10 Ur Barbiturates Screen Negative 10/29/21 18:15 Ur Phencyclidine Scrn Negative 10/29/21 18:15 Ur Amphetamines Screen Negative 10/29/21 18:15 U Benzodiazepines Scrn Negative 10/29/21 18:15 Urine Cocaine Screen Negative 10/29/21 18:15 U Marijuana (THC) Screen Negative 10/29/21 18:15 Drugs of Abuse Note Disclamer 10/29/21 18:15 Plasma/Serum Alcohol < 0.01 % (0-0.07) 10/29/21 15:10 Coronavirus (PCR) Negative (Negative) 10/30/21 Unknown Blood Type O POSITIVE 10/29/21 15:10 Antibody Screen Negative 10/29/21 15:10 Krishna/IV: Voiding Method Indwelling Catheter Active Medications - Current Medications Current Medications: Generic Name Dose Route Start Last Admin Trade Name Freq PRN Reason Stop Dose Admin Acetaminophen 650 mg 10/29/21 17:04 11/09/21 19:56 Acetaminophen 325 Mg Tab PO 650 mg Q6H PRN Administration Pain, Mild (1-3) Acetaminophen 650 mg 10/29/21 17:04 Acetaminophen 650 Mg Rect Supp MS Q6H PRN Pain MILD(1-3)/Fever >100.5/NIEVES Amiodarone HCl 200 mg 11/08/21 10:00 11/09/21 09:53 Amiodarone 200 Mg Tab PO 200 mg QDAY RAMON Administration Lipase/Protease/Amylase 1 each 10/31/21 08:56 Lipase 10,500/Protease 25,000/Amylase 43,750 (Units) Dr Ivory FEEDTUBE PRN PRN For Clogged Feeding Tube Dextrose 0 ml 11/04/21 13:48 11/05/21 15:29 Dextrose 10% *Hypoglycemia IV 250 ml PRN PRN Administration Hypoglycemia Famotidine 10 mg 11/06/21 10:00 11/09/21 21:01 Famotidine 10 Mg Tab PO 10 mg BID RAMON Administration Fentanyl 50 mcg 11/04/21 14:32 11/09/21 00:01 Fentanyl 100 Mcg/2 Ml Inj IV 50 mcg Q2H PRN Administration Pain, Moderate (4-6) Heparin Sodium (Porcine) 4,300 unit 10/30/21 17:00 Heparin 10,000 Units/10 Ml Vial 40 unit/kg (4300 unit) IV Q6H PRN Anti-Xa Assay < 0.1 units/ml Hydralazine HCl 50 mg 11/09/21 14:00 11/10/21 06:43 Hydralazine 25 Mg Tab PO 50 mg Q8HR RAMON Administration Hydralazine HCl 10 mg 11/09/21 13:05 Hydralazine 20 Mg/1 Ml Inj IV Q4HR PRN Hypertension Hydrophilic Ointment 1 applic 10/29/21 14:29 11/09/21 08:51 Lip Therapy Vaseline TP 1 applic Q2HR PRN Administration Dry Lips NORepinephrine/NS 8 MG-250 ML 8 mg in 250 mls @ 3.75 mls/hr 10/29/21 15:00 11/04/21 07:00 Norepinephrine/Ns 8 Mg-250 Ml (Double Conc) IV 0 mcg/min TITRATE RAMON 0 mls/hr Titration Protocol 2 MCG/MIN Heparin Sodium/Sodium Chloride 25,000 unit in 500 mls @ 30 mls/hr 10/30/21 17:00 11/10/21 02:44 Heparin/ 0.45% Nacl-25,000 Unit/500 Ml IV 1,700 units/hr TITR RAMON 34 mls/hr Titration Protocol 1,500 UNITS/HR Dexmedetomidine HCl 200 mcg/ 50 mls @ 5.335 mls/hr 11/07/21 15:00 11/10/21 05:51 Sodium Chloride IV 1 mcg/kg/hr TITRATE RAMON 26.675 mls/hr Administration Protocol 0.2 MCG/KG/HR Magnesium Sulfate 2 gm in 50 mls @ 25 mls/hr 11/10/21 08:00 11/10/21 07:59 Magnesium Sulfate 2gm/50ml IV 11/10/21 12:00 25 mls/hr ONCE@0800 RAMON Administration Insulin Glargine 15 units 11/08/21 22:00 11/09/21 21:00 Insulin Glargine 100 Units/Ml SUB-Q 15 units QHS RAMON Administration Insulin Human Lispro 0 unit 10/30/21 16:00 11/10/21 06:33 Insulin Lispro 100 Unit/Ml SUB-Q 4 unit Q6HR RAMON Administration Protocol Isosorbide Mononitrate 30 mg 11/08/21 10:00 11/09/21 09:53 Isosorbide Mononitrate Er 30 Mg Tab PO 30 mg QDAY RAMON Administration Metoprolol Tartrate 50 mg 11/07/21 12:00 11/10/21 06:45 Metoprolol Tartrate 50 Mg Tab FEEDTUBE 50 mg Q6H RAMON Administration Multi-Ingred Cream/Lotion/Oil/Oint 1 applic 10/29/21 14:29 11/06/21 09:25 Mineral Oil/Petrolatum, White Ophth Oint 3.5 Gm OU 1 applic Q4HR PRN Administration Dry Eye(s) Potassium Chloride 40 meq 11/10/21 08:00 11/10/21 07:59 Potassium Chloride 20 Meq Packet FEEDTUBE 11/10/21 12:00 40 meq ONCE@0800 RAMON Administration Senna/Docusate Sodium 1 tab 10/29/21 15:00 11/09/21 21:01 Sennosides/Docusate Sodium 8.6/50 Mg Tab FEEDTUBE 1 tab BID RAMON Administration Simple Syrup 15 ml 10/31/21 08:56 Simple Syrup 15 Ml FEEDTUBE PRN PRN Hypoglycemia Simple Syrup 30 ml 10/31/21 08:56 Simple Syrup 15 Ml FEEDTUBE PRN PRN Hypoglycemia Sodium Bicarbonate 325 mg 10/31/21 08:56 Sodium Bicarbonate 325 Mg Tab FEEDTUBE PRN PRN For Clogged Feeding Tube Sodium Chloride 10 ml 10/29/21 22:00 11/09/21 21:00 Sodium Chloride 0.9% 10 Ml Flush Syringe IV 10 ml BID RAMON Administration Sodium Chloride 10 ml 10/29/21 17:04 Sodium Chloride 0.9% 10 Ml Flush Syringe IV PRN PRN LINE FLUSH Nutrition/Malnutrition Assess - Dietary Evaluation Nutrition/Malnutrition Findings: Nutrition Notes Start: 10/30/21 09:50 Freq: Status: Active Protocol: Document 11/08/21 09:54 MEENU (Rec: 11/08/21 10:20 MEENU [id number]) Nutrition Notes Initial or Follow up Reassessment Current Diagnosis Acute Kidney Injury,Sepsis, Heart Failure,Respiratory Failure Other Pertinent Diagnosis SIERRA/ATN, s/p Cardiac Arrest, DVT, Anemia, Hyperkalemia. Current Diet TF-Nepro w/CARBSTEADY @ 37 ml/ hr (since D 11/06). Labs/Tests 11/08: Na 151, K 3.1, Cl 107.3 , CO2 31, BUN 82, Crea 1.8, Glu 232, Ca 8.1. Pertinent Medications 11/08: Insulin, others nutritionally unremarkable. Height 5 ft 10 in Weight 106.7 kg [place] Body Weight (kg) 68.18 BMI 33.7 Weight change and time frame No body weight change reported in 1 week. Weight Status Obese Subjective/Other Information RD consult for routine F/U on TF tolerance. TF continues as prescribed and well tolerated, according to RN over the phone. Pt continues on Mechanical ventilation. Percent of energy/protein needs met: Prescribed Nepro w/CARBSTEADY @ 37 ml/hr provides for energy /protein needs (1,598 Kcal/72 g) during LOS, 100% Kcal; 100% AA. Burn Absent Trauma Absent GI Symptoms None Food Allergy No Skin Integrity/Comment Clear, warm, dry. Current % PO Other Minimum of two criteria No #1 Nutrition Diagnosis Inadequate oral intake Diagnosis Progress(for reassessment Continues documentation) Is patient on ventilator? Yes Is Patient Ambulatory and/or Out of Bed No REE-([facility]-confined to bed) 2022.848 Kcal/Kg value to use for calculation 15 Approximate Energy Requirements Using 1601 kcal/Kg Calculation Used for Recommendations Kcal/kg Additional Notes Protein: 0.8-1.2 g/Kg IBW; 70- 105 g/day. Fluids: 1 ml/Kcal, or as per MD. Nutrition Intervention Nutrition Support: Continue Nepro w/CARBSTEADY @ 37 ml/hr. Flush: 160 ml water Q 4 hr, or as per MD. Kcal 1,598 Protein (gm) 72 Carbohydrates (gm) 143 Fat (gm) 85 Fluid (mL) 646 Fiber (gm) 11 % RDI: 100% Kcal; 100% AA. Goal #1 Provide at least 75% of energy /protein needs through Enteral Feeding during LOS. Goal #2 Maintain body weight within +/ -3% of admission body weight during LOS. Follow-Up By: 11/15/21 Additional Comments Continue monitoring TF tolerance and BM.
--- NOTE | 2021-11-09 11:55 | Progress Note ---
Assessment and Plan Assessment: Acute Renal Failure secondary to Ischemic ATN secondary to Sepsis, Cardiac arrest and Hypotension S/P Cardiac Arrest Acute Hypoxemic Respiratory Failure Acute DVT Sepsis CHF Anemia Hyperkalemia Plan: Renal labs reviewed. Serum creatinine slightly down monitor. Na 148, Continue D5W at 75 cc/hr. Replace K ARF likely secondary to Ischemic ATN LVEF 25-30 % Renal US shows CKD signs, no hydronephrosis Ordered urine lytes, protein and eosinophils DVT-on Heparin drip Intubated on Vent, Per ICU Strict I/O's daily Renally dose medications Avoid nephratoxic agents No acute indication for ROLL HAND Will monitor renal function closely Critical Care time: 35 minutes Subjective Date of service: 11/09/21 Principal diagnosis: AHRF; Cardiac arrest; R. pneumothorax; pneumonia; AMS; DVT's; SIERRA; Obesity Interval history: Intubated on Vent. In ICU. Making urine. Objective - Exam Narrative Exam: - General Appearance General appearance: sedated on ventilator, intubated EENT: ATNC, other (Blinks eyes) Respiratory: Decreased Breath Sounds, Other (Intubated) Heart: S1S2 Gastrointestinal: Present: normoactive bowel sounds, other (NG tube) Integumentary: no rash, warm and dry Neurologic: other (Intubated, blinks eyes) Musculoskeletal: Present: other (mild edema to BLE) - Vital Signs Vital signs: Vital Signs - 12hr 11/09/21 11/09/21 11/09/21 00:00 00:30 01:00 Temperature 98.3 F Pulse Rate 72 69 67 Pulse Rate [ 107 H From Monitor] Respiratory 14 17 17 Rate Blood Pressure 158/81 146/77 134/73 O2 Sat by Pulse 97 98 98 Oximetry 11/09/21 11/09/21 11/09/21 01:30 02:00 02:30 Temperature Pulse Rate 65 62 62 Pulse Rate [ From Monitor] Respiratory 14 17 16 Rate Blood Pressure 142/79 146/80 152/81 O2 Sat by Pulse 99 99 99 Oximetry 11/09/21 11/09/21 11/09/21 03:00 03:30 04:00 Temperature 96.3 F L Pulse Rate 62 61 60 Pulse Rate [ 107 H From Monitor] Respiratory 15 16 15 Rate Blood Pressure 142/79 145/81 148/80 O2 Sat by Pulse 99 99 99 Oximetry 02/11/09/21 11/09/21 04:30 05:00 05:30 Temperature Pulse Rate 70 66 65 Pulse Rate [ From Monitor] Respiratory 18 16 18 Rate Blood Pressure 148/80 176/88 166/89 O2 Sat by Pulse 98 95 97 Oximetry 11/09/21 11/09/21 11/09/21 06:00 06:30 07:00 Temperature Pulse Rate 68 68 69 Pulse Rate [ From Monitor] Respiratory 17 19 18 Rate Blood Pressure 181/94 175/91 173/97 O2 Sat by Pulse 98 96 99 Oximetry 11/09/21 11/09/21 11/09/21 07:16 07:30 08:00 Temperature 99.2 F 99.3 F Pulse Rate 67 66 Pulse Rate [ 80 From Monitor] Respiratory 21 21 Rate Blood Pressure 176/90 171/90 O2 Sat by Pulse 100 98 Oximetry 11/09/21 11/09/21 11/09/21 08:30 09:00 09:31 Temperature Pulse Rate 70 70 103 H Pulse Rate [ From Monitor] Respiratory 23 23 13 Rate Blood Pressure 184/97 187/100 187/100 O2 Sat by Pulse 97 96 Oximetry 11/09/21 11/09/21 11/09/21 09:53 10:00 10:31 Temperature Pulse Rate 107 H 84 82 Pulse Rate [ From Monitor] Respiratory 17 24 Rate Blood Pressure 183/99 184/96 184/92 O2 Sat by Pulse 99 98 Oximetry 11/09/21 11/09/21 11/09/21 11:00 11:30 11:45 Temperature 99.3 F Pulse Rate 77 80 Pulse Rate [ From Monitor] Respiratory 41 H 42 H Rate Blood Pressure 178/95 181/98 O2 Sat by Pulse 94 95 Oximetry - Lab 11/09/21 04:51 11/09/21 04:51 Most recent lab results ABG pH 7.447 pH Units (7.350-7.450) 11/09/21 08:45 ABG pCO2 50.0 mm Hg 11/09/21 08:45 ABG pO2 73.2 mm Hg (80.0-90.0) L 11/09/21 08:45 ABG HCO3 33.8 mmol/L (20.0-26.0) H 11/09/21 08:45 ABG O2 Saturation 96.0 % (95.0-99.0) 11/09/21 08:45 Calcium 8.3 mg/dL (8.4-10.2) L 11/09/21 04:51 Phosphorus 3.30 mg/dL (2.5-4.5) 11/09/21 04:51 Magnesium 2.20 mg/dL (1.7-2.3) 11/09/21 04:51 Urine Creatinine 190.9 mg/dL (0.1-20.0) H 11/04/21 Unknown Urine Sodium 10 mmol/L 11/04/21 Unknown Urine Total Protein 172 mg/dL (5-11.8) H 11/04/21 Unknown Medications & Allergies - Medications Allergies/Adverse Reactions: Allergies No Known Allergies Allergy (Verified 10/29/21 14:01) Active Medications: Generic Name Dose Route Start Last Admin Trade Name Freq PRN Reason Stop Dose Admin Acetaminophen 650 mg 10/29/21 17:04 11/03/21 11:35 Acetaminophen 325 Mg Tab PO 650 mg Q6H PRN Administration Pain, Mild (1-3) Acetaminophen 650 mg 10/29/21 17:04 Acetaminophen 650 Mg Rect Supp DC Q6H PRN Pain MILD(1-3)/Fever >100.5/NIEVES Amiodarone HCl 200 mg 11/08/21 10:00 11/09/21 09:53 Amiodarone 200 Mg Tab PO 200 mg QDAY RAMON Administration Lipase/Protease/Amylase 1 each 10/31/21 08:56 Lipase 10,500/Protease 25,000/Amylase 43,750 (Units) Dr Ivory FEEDTUBE PRN PRN For Clogged Feeding Tube Dextrose 0 ml 11/04/21 13:48 11/05/21 15:29 Dextrose 10% *Hypoglycemia IV 250 ml PRN PRN Administration Hypoglycemia Famotidine 10 mg 11/06/21 10:00 11/09/21 09:54 Famotidine 10 Mg Tab PO 10 mg BID RAMON Administration Fentanyl 50 mcg 11/04/21 14:32 11/09/21 00:01 Fentanyl 100 Mcg/2 Ml Inj IV 50 mcg Q2H PRN Administration Pain, Moderate (4-6) Heparin Sodium (Porcine) 4,300 unit 10/30/21 17:00 Heparin 10,000 Units/10 Ml Vial 40 unit/kg (4300 unit) IV Q6H PRN Anti-Xa Assay < 0.1 units/ml Hydralazine HCl 50 mg 11/09/21 14:00 Hydralazine 25 Mg Tab PO Q8HR RAMON Hydrophilic Ointment 1 applic 10/29/21 14:29 11/09/21 08:51 Lip Therapy Vaseline TP 1 applic Q2HR PRN Administration Dry Lips NORepinephrine/NS 8 MG-250 ML 8 mg in 250 mls @ 3.75 mls/hr 10/29/21 15:00 11/04/21 07:00 Norepinephrine/Ns 8 Mg-250 Ml (Double Conc) IV 0 mcg/min TITRATE RAMON 0 mls/hr Titration Protocol 2 MCG/MIN Heparin Sodium/Sodium Chloride 25,000 unit in 500 mls @ 30 mls/hr 10/30/21 17:00 11/09/21 10:37 Heparin/ 0.45% Nacl-25,000 Unit/500 Ml IV 1,500 units/hr TITR RAMON 30 mls/hr Titration Protocol 1,500 UNITS/HR Dexmedetomidine HCl 200 mcg/ 50 mls @ 5.335 mls/hr 11/07/21 15:00 11/09/21 11:23 Sodium Chloride IV 0.9 mcg/kg/hr TITRATE RAMON 24.008 mls/hr Administration Protocol 0.2 MCG/KG/HR Dextrose 1,000 mls @ 75 mls/hr 11/08/21 11:00 11/09/21 01:25 D5w IV 75 mls/hr DIRECT RAMON Administration Insulin Glargine 15 units 11/08/21 22:00 11/08/21 21:34 Insulin Glargine 100 Units/Ml SUB-Q 15 units QHS RAMON Administration Insulin Human Lispro 0 unit 10/30/21 16:00 11/09/21 06:30 Insulin Lispro 100 Unit/Ml SUB-Q 3 unit Q6HR RAMON Administration Protocol Isosorbide Mononitrate 30 mg 11/08/21 10:00 11/09/21 09:53 Isosorbide Mononitrate Er 30 Mg Tab PO 30 mg QDAY RAMON Administration Metoprolol Tartrate 50 mg 11/07/21 12:00 11/09/21 11:11 Metoprolol Tartrate 50 Mg Tab FEEDTUBE 50 mg Q6H RAMON Administration Multi-Ingred Cream/Lotion/Oil/Oint 1 applic 10/29/21 14:29 11/06/21 09:25 Mineral Oil/Petrolatum, White Ophth Oint 3.5 Gm OU 1 applic Q4HR PRN Administration Dry Eye(s) Potassium Chloride 20 meq 11/09/21 08:30 11/09/21 08:51 Potassium Chloride 20 Meq Packet FEEDTUBE 11/09/21 12:00 20 meq ONCE@0830 RAMON Administration Senna/Docusate Sodium 1 tab 10/29/21 15:00 11/08/21 21:34 Sennosides/Docusate Sodium 8.6/50 Mg Tab FEEDTUBE 1 tab BID RAMON Administration Simple Syrup 15 ml 10/31/21 08:56 Simple Syrup 15 Ml FEEDTUBE PRN PRN Hypoglycemia Simple Syrup 30 ml 10/31/21 08:56 Simple Syrup 15 Ml FEEDTUBE PRN PRN Hypoglycemia Sodium Bicarbonate 325 mg 10/31/21 08:56 Sodium Bicarbonate 325 Mg Tab FEEDTUBE PRN PRN For Clogged Feeding Tube Sodium Chloride 10 ml 10/29/21 22:00 11/09/21 09:54 Sodium Chloride 0.9% 10 Ml Flush Syringe IV 10 ml BID RAMON Administration Sodium Chloride 10 ml 10/29/21 17:04 Sodium Chloride 0.9% 10 Ml Flush Syringe IV PRN PRN LINE FLUSH
--- NOTE | 2021-11-09 12:56 | Progress Note ---
Assessment and Plan Patient is a 66-year-old female with unknown past medical history brought into the ED following outside of hospital cardiac arrest thought to be PEA with thought to have downtime of 7 to 9 minutes however details are unclear S/P PEA cardiopulmonary arrest-No longer on pressors Acute hypoxic respiratory failure-pulm following Septic shock Aspiration pneumonia Pneumothorax- s/p CT Acute DVT-on Heparin gtt Hypokalemia Transaminitis Echo 10/30/2021-technically difficult study due to body habitus. EF 25 to 30%. Right ventricular systolic function is normal. No pericardial effusion Plan: Continue metoprolol 50 mg p.o. every 6 hours Continue amio 200mg PO QD and Imdur 30mg PO QD Patient remains hypertensive increase to hydralazine 50mg PO TID No LAYO/ ARB due to elevated creatinine Patient currently anticoagulated on heparin drip Patient seen in conjunction with Dr. Archer who agrees with this plan of care - Patient Problems (1) Cardiopulmonary arrest Current Visit: Yes Status: Acute (2) Hypokalemia Current Visit: Yes Status: Acute (3) Transaminitis Current Visit: Yes Status: Acute (4) Aspiration pneumonia Current Visit: Yes Status: Acute (5) Acute hypoxemic respiratory failure Current Visit: Yes Status: Acute (6) Septic shock Current Visit: Yes Status: Acute (7) Toxic metabolic encephalopathy Current Visit: Yes Status: Acute (8) Shock liver Current Visit: Yes Status: Acute Subjective Date of service: 11/09/21 Principal diagnosis: AHRF; Cardiac arrest; R. pneumothorax; pneumonia; AMS; DVT's; SIERRA; Obesity Interval history: Patient remains intubated and sedated Patient remain in sinus rhythm trending sinus 70s Objective Vital Signs Temp Pulse Pulse Resp BP Pulse Ox 11/09/21 12:00 100.2 F H 75 72 24 160/91 97 11/09/21 11:45 99.3 F 11/09/21 11:30 80 42 H 181/98 95 11/09/21 11:00 77 41 H 178/95 94 11/09/21 10:31 82 24 184/92 98 11/09/21 10:00 84 17 184/96 99 11/09/21 09:53 107 H 183/99 11/09/21 09:31 103 H 13 187/100 11/09/21 09:00 70 23 187/100 96 11/09/21 08:30 70 23 184/97 97 11/09/21 08:00 99.3 F 66 80 21 171/90 98 11/09/21 07:30 67 21 176/90 100 11/09/21 07:16 99.2 F 11/09/21 07:00 69 18 173/97 99 11/09/21 06:30 68 19 175/91 96 11/09/21 06:00 68 17 181/94 98 11/09/21 05:30 65 18 166/89 97 11/09/21 05:00 66 16 176/88 95 11/09/21 04:30 70 18 148/80 98 11/09/21 04:00 96.3 F L 60 107 H 15 148/80 99 11/09/21 03:30 61 16 145/81 99 11/09/21 03:00 62 15 142/79 99 11/09/21 02:30 62 16 152/81 99 11/09/21 02:00 62 17 146/80 99 11/09/21 01:30 65 14 142/79 99 11/09/21 01:00 67 17 134/73 98 11/09/21 00:30 69 17 146/77 98 11/09/21 00:00 98.3 F 72 107 H 14 158/81 97 11/08/21 23:30 80 24 175/95 100 11/08/21 23:00 70 17 170/86 98 11/08/21 22:30 74 24 171/95 99 11/08/21 22:00 74 21 170/90 99 11/08/21 21:33 73 11/08/21 21:30 73 18 173/88 98 11/08/21 21:00 72 18 174/89 98 11/08/21 20:30 81 21 182/93 99 11/08/21 20:09 18 11/08/21 20:00 98.8 F 77 107 H 17 182/93 98 11/08/21 19:30 80 20 185/96 97 11/08/21 19:11 79 168/92 97 11/08/21 19:00 79 19 168/92 98 11/08/21 18:30 79 24 187/99 99 11/08/21 18:00 70 17 155/79 97 11/08/21 17:30 70 20 163/89 96 11/08/21 17:06 69 18 171/93 97 11/08/21 17:00 77 22 170/89 97 11/08/21 16:30 72 17 170/89 97 11/08/21 16:00 67 107 H 21 161/87 97 11/08/21 15:30 68 18 158/76 98 11/08/21 15:00 82 19 163/93 100 11/08/21 14:56 64 147/70 98 11/08/21 14:30 68 18 147/70 98 11/08/21 14:00 66 16 148/74 98 11/08/21 13:30 67 16 146/78 97 11/08/21 13:00 62 18 142/76 97 - Physical Examination General: Other (Intubated and sedated) HEENT: Positive: Normocephaly Neck: Positive: trachea midline Cardiac: Positive: Reg Rate and Rhythm Lungs: Positive: Ventilated Respirations Neuro: Positive: Other (sedated) Abdomen: Positive: Soft, Active Bowel Sounds Skin: Negative: Rash Musculoskeletal: No Fluid Collection Extremities: Present: edema - Labs and Meds CBC 11/09/21 Range/Units 04:51 WBC 27.6 H (4.5-11.0) K/mm3 RBC 3.18 L (3.65-5.03) M/mm3 Hgb 8.4 L (10.1-14.3) gm/dl Hct 26.6 L (30.3-42.9) % Plt Count 239 (140-440) K/mm3 Comprehensive Metabolic Panel 11/08/21 11/08/21 11/09/21 Range/Units 12:00 21:40 04:51 Sodium 148 H 148 H (137-145) mmol/L Potassium 3.0 L 2.8 L* 2.7 L* (3.6-5.0) mmol/L Chloride 106.4 104.7 (98-107) mmol/L Carbon Dioxide 31 H 30 (22-30) mmol/L BUN 68 H 59 H (7-17) mg/dL Creatinine 1.5 H 1.4 H (0.6-1.2) mg/dL Glucose 191 H 143 H (65-100) mg/dL Calcium 8.2 L 8.3 L (8.4-10.2) mg/dL - Imaging and Cardiology Echo: report reviewed - Telemetry EKG Rhythm: Sinus Rhythm - EKG Sinus rhythms and dysrhythmias: sinus rhythm Ventricular dysrhythmias: ventricular premature com - Allied health notes Allied health notes reviewed: RT
[2021-11-09] MEDS ORDERED: hydrALAZINE 20 MG/1 ML INJ IV PRN (13:05)
[2021-11-09] MEDS: SENNOSIDES/DOCUSATE SODIUM 8.6/50 MG TAB FEEDTUBE SCH ×2 (14:55→21:01)
[2021-11-09 16:50] LABS: Calcium 7.9 mg/dL (8.4-10.2)
[2021-11-09] MEDS ORDERED: POTASSIUM CHLORIDE 20 MEQ PACKET FEEDTUBE ONE (18:00)
--- NOTE | 2021-11-09 18:13 | Progress Note ---
Assessment and Plan Acute hypoxemic respiratory failure s/p MVS Cardiac arrest with ROSC Acute DVT- on heparin Anemia- possible acute blood loss Right pneumothorax s/p pleural drain placement Shock (septic +/- cardiogenic) Possible aspiration pneumonia SIERRA Altered mental status/acute encephalopathy Elevated serum transaminases, likely ischemic hepatitis Metabolic acidosis Obesity Leukocytosis SAT and SBT today, keep negative fluid balance CXR,ABG as clinically indicated - continue full anticoagulation with IV Heparin re: DVT - continue to titrate supplemental oxygen to keep SpO2 88-90% - VAP bundle addressed, aspiration precautions HOB>40 - continue lung protective strategies - continue bronchodilators with pulmonary hygiene per RT - wean per pulmonary driven protocols otherwise - continue accuchecks with glycemic control per SSI (While critically ill target blood glucose of 140-180 mg/dL; avoid hypoglycemia) - sedation prn for target RASS 0 to -1 - avoid nephrotoxins, renally dose all medications - continue to avoid benzodiazepines , reduce the possibility of delirium - prn analgesia per CPOT score - Maintenance of sleep-wake cycle, avoid delirium - continue enteral nutritional support at goal rate as tolerated - Stress ulcer prophylaxis - PT/OT/ROM exercises - continue mobility, frequent turning and off loading for pressure ulcer prevention - Monitor hemodynamics closely - continue other care per attending / other consultants COVID SPECIFIC INTERVENTIONS - COVID-19 PCR negative CONDITION: CRITICAL PROGNOSIS: GUARDED CODE STATUS: FULL CODE The high probability of a clinically significant, sudden or life-threatening deterioration of the [respiratory, cardiovascular, renal & neurologic] system(s) required my full and direct attention, intervention and personal management. The aggregate critical care time was [34] minutes without overlap. Time includes spent on; [x] Data Review and interpretation [x] Patient assessment and monitoring of vital signs [x] Documentation [x] Medication orders and management Subjective Date of service: 11/09/21 Principal diagnosis: AHRF; Cardiac arrest; R. pneumothorax; pneumonia; AMS; DVT's; SIERRA; Obesity Interval history: Patient is seen today for: Acute hypoxemic respiratory failure; Cardiac arrest with ROSC; Right pneumothorax; pneumonia; AMS; bilateral DVT's; SIERRA; Obesity Seen and examined at bedside; 24hour events reviewed; nursing and respiratory care staff consulted; no adverse overnight events reported to me; remains on MVS; no emesis or overt aspiration;no adverse overnight events, Awake and alert, following simple commands. Objective Vital Signs - 12hr 11/09/21 11/09/21 11/09/21 06:30 07:00 07:16 Temperature 99.2 F Pulse Rate 68 69 Pulse Rate [ From Monitor] Respiratory 19 18 Rate Blood Pressure 175/91 173/97 O2 Sat by Pulse 96 99 Oximetry 11/09/21 11/09/21 11/09/21 07:30 08:00 08:30 Temperature 99.3 F Pulse Rate 67 66 70 Pulse Rate [ 80 From Monitor] Respiratory 21 21 23 Rate Blood Pressure 176/90 171/90 184/97 O2 Sat by Pulse 100 98 97 Oximetry 11/09/21 11/09/21 11/09/21 09:00 09:31 09:53 Temperature Pulse Rate 70 103 H 107 H Pulse Rate [ From Monitor] Respiratory 23 13 Rate Blood Pressure 187/100 187/100 183/99 O2 Sat by Pulse 96 Oximetry 11/09/21 11/09/21 11/09/21 10:00 10:31 11:00 Temperature Pulse Rate 84 82 77 Pulse Rate [ From Monitor] Respiratory 17 24 41 H Rate Blood Pressure 184/96 184/92 178/95 O2 Sat by Pulse 99 98 94 Oximetry 11/09/21 11/09/21 11/09/21 11:30 11:45 12:00 Temperature 99.3 F 100.2 F H Pulse Rate 80 76 Pulse Rate [ 72 From Monitor] Respiratory 42 H 24 Rate Blood Pressure 181/98 160/91 O2 Sat by Pulse 95 97 Oximetry 11/09/21 11/09/21 11/09/21 12:31 13:00 13:30 Temperature Pulse Rate 72 73 70 Pulse Rate [ From Monitor] Respiratory 22 18 19 Rate Blood Pressure 142/80 150/82 143/79 O2 Sat by Pulse 97 99 96 Oximetry 11/09/21 11/09/21 11/09/21 14:00 14:30 15:00 Temperature Pulse Rate 71 70 Pulse Rate [ From Monitor] Respiratory 21 15 Rate Blood Pressure 145/66 139/64 128/61 O2 Sat by Pulse 95 96 97 Oximetry 11/09/21 11/09/21 11/09/21 15:30 16:00 16:17 Temperature 99.9 F H Pulse Rate 71 72 Pulse Rate [ 71 From Monitor] Respiratory 26 H 30 H Rate Blood Pressure 122/65 117/72 O2 Sat by Pulse 98 97 Oximetry 02/11/09/21 11/09/21 16:31 17:01 17:22 Temperature Pulse Rate 72 75 72 Pulse Rate [ From Monitor] Respiratory 32 H 32 H Rate Blood Pressure 141/70 140/77 140/77 O2 Sat by Pulse 96 96 Oximetry 11/09/21 11/09/21 17:31 18:00 Temperature Pulse Rate 74 71 Pulse Rate [ From Monitor] Respiratory 33 H 31 H Rate Blood Pressure 151/79 146/76 O2 Sat by Pulse 95 96 Oximetry Constitutional: appears uncomfortable, other (elderly obese female with mildly increased respiratory effort at rest) Eyes: non-icteric, other (+ mild periorbital phymosis) ENT: oropharynx moist, oropharyngeal exudate pre (moderate), other (ETT 23 cm KRYSTAL) Neck: supple, no lymphadenopathy, no JVD Effort: mildly labored Ascultation: Bilateral: diminished breath sounds, rhonchi Percussion: Bilateral: not dull Cardiovascular: irregular rhythm, other (no R/M) Gastrointestinal: normoactive bowel sounds Integumentary: normal Extremities: no cyanosis, pulses normal, no ischemia or petechiae, edema Neurologic: non-focal exam (grossly), pupils equal and round, other (tracking voice, obeying simplae commands) Psychiatric: other (unable to assess re: AMS) CBC and BMP: 11/13/21 04:17 11/13/21 04:17 ABG, PT/INR, D-dimer: ABG ABG pH 7.447 pH Units (7.350-7.450) 11/09/21 08:45 ABG pCO2 50.0 mm Hg 11/09/21 08:45 ABG pO2 73.2 mm Hg (80.0-90.0) L 11/09/21 08:45 ABG O2 Saturation 96.0 % (95.0-99.0) 11/09/21 08:45 PT/INR, D-dimer PT 17.2 Sec. (12.2-14.9) H 10/30/21 16:30 INR 1.27 (0.87-1.13) H 10/30/21 16:30 D-Dimer > 14086 ng/mlDDU (0-234) H 10/30/21 Unknown Abnormal lab findings: Abnormal Labs 10/29/21 10/29/21 10/29/21 15:10 15:10 15:10 WBC 27.8 H RBC Hgb Hct MCH 27 L RDW Plt Count Lymph % (Auto) Lymph # (Auto) Smith # (Auto) Seg Neutrophils % Seg Neuts % (Manual) 78.0 H Lymphocytes % (Manual) 10.0 L Nucleated RBC % Seg Neutrophils # Seg Neutrophils # Man 21.7 H Monocytes # (Manual) 1.4 H PT INR APTT D-Dimer Heparin Anti-Xa Level ABG pH ABG pO2 ABG HCO3 ABG O2 Saturation ABG Base Excess ABG Hemoglobin Oxyhemoglobin Sodium Potassium Chloride Carbon Dioxide BUN Creatinine Glucose POC Glucose Hemoglobin A1c Lactic Acid 6.80 H* Calcium Phosphorus Magnesium Ferritin AST ALT Alkaline Phosphatase Lactate Dehydrogenase Troponin T 0.089 H C-Reactive Protein Total Protein Albumin LDL Cholesterol Direct Urine Creatinine Urine Total Protein Salicylates Acetaminophen 10/29/21 10/29/21 10/29/21 15:10 15:10 15:10 WBC RBC Hgb Hct MCH RDW Plt Count Lymph % (Auto) Lymph # (Auto) Smith # (Auto) Seg Neutrophils % Seg Neuts % (Manual) Lymphocytes % (Manual) Nucleated RBC % Seg Neutrophils # Seg Neutrophils # Man Monocytes # (Manual) PT INR APTT D-Dimer Heparin Anti-Xa Level ABG pH ABG pO2 ABG HCO3 ABG O2 Saturation ABG Base Excess ABG Hemoglobin Oxyhemoglobin Sodium 136 L Potassium 2.8 L* Chloride 93.4 L Carbon Dioxide 20 L BUN Creatinine Glucose 330 H POC Glucose Hemoglobin A1c Lactic Acid Calcium Phosphorus Magnesium Ferritin AST 1013 H ALT 1289 H Alkaline Phosphatase 246 H Lactate Dehydrogenase Troponin T C-Reactive Protein Total Protein Albumin LDL Cholesterol Direct Urine Creatinine Urine Total Protein Salicylates < 0.3 L Acetaminophen 5.0 L 10/29/21 10/29/21 10/29/21 15:11 16:01 19:29 WBC RBC Hgb Hct MCH RDW Plt Count Lymph % (Auto) Lymph # (Auto) Smith # (Auto) Seg Neutrophils % Seg Neuts % (Manual) Lymphocytes % (Manual) Nucleated RBC % Seg Neutrophils # Seg Neutrophils # Man Monocytes # (Manual) PT INR APTT D-Dimer Heparin Anti-Xa Level ABG pH 7.307 L ABG pO2 64.1 L ABG HCO3 ABG O2 Saturation 90.8 L ABG Base Excess -2.9 L ABG Hemoglobin Oxyhemoglobin 89.3 L Sodium Potassium Chloride Carbon Dioxide BUN Creatinine Glucose POC Glucose Hemoglobin A1c Lactic Acid 2.60 H* Calcium Phosphorus Magnesium 2.90 H Ferritin AST ALT Alkaline Phosphatase Lactate Dehydrogenase Troponin T C-Reactive Protein Total Protein Albumin LDL Cholesterol Direct Urine Creatinine Urine Total Protein Salicylates Acetaminophen 10/29/21 10/29/21 10/30/21 19:40 22:34 04:30 WBC 16.2 H RBC Hgb Hct MCH 26 L RDW 15.5 H Plt Count Lymph % (Auto) 6.2 L Lymph # (Auto) 1.0 L Smith # (Auto) 0.9 H Seg Neutrophils % 88.1 H Seg Neuts % (Manual) Lymphocytes % (Manual) Nucleated RBC % Seg Neutrophils # 14.2 H Seg Neutrophils # Man Monocytes # (Manual) PT INR APTT D-Dimer Heparin Anti-Xa Level ABG pH ABG pO2 ABG HCO3 ABG O2 Saturation ABG Base Excess ABG Hemoglobin Oxyhemoglobin Sodium Potassium Chloride Carbon Dioxide BUN Creatinine Glucose POC Glucose Hemoglobin A1c Lactic Acid Calcium Phosphorus Magnesium Ferritin AST ALT Alkaline Phosphatase Lactate Dehydrogenase Troponin T 1.950 H* D 1.150 H* D C-Reactive Protein Total Protein Albumin LDL Cholesterol Direct 43 L Urine Creatinine Urine Total Protein Salicylates Acetaminophen 10/30/21 10/30/21 10/30/21 04:30 04:35 05:45 WBC RBC Hgb Hct MCH RDW Plt Count Lymph % (Auto) Lymph # (Auto) Smith # (Auto) Seg Neutrophils % Seg Neuts % (Manual) Lymphocytes % (Manual) Nucleated RBC % Seg Neutrophils # Seg Neutrophils # Man Monocytes # (Manual) PT INR APTT D-Dimer Heparin Anti-Xa Level ABG pH ABG pO2 69.5 L ABG HCO3 ABG O2 Saturation ABG Base Excess -2.7 L ABG Hemoglobin Oxyhemoglobin 94.7 L Sodium Potassium Chloride Carbon Dioxide 21 L BUN Creatinine Glucose 159 H POC Glucose 151 H Hemoglobin A1c Lactic Acid Calcium 7.9 L D Phosphorus Magnesium Ferritin AST 461 H ALT 686 H Alkaline Phosphatase 130 H Lactate Dehydrogenase Troponin T C-Reactive Protein Total Protein 5.6 L D Albumin 3.2 L LDL Cholesterol Direct Urine Creatinine Urine Total Protein Salicylates Acetaminophen 10/30/21 10/30/21 10/30/21 11:24 15:59 16:30 WBC RBC Hgb Hct MCH RDW Plt Count Lymph % (Auto) Lymph # (Auto) Smith # (Auto) Seg Neutrophils % Seg Neuts % (Manual) Lymphocytes % (Manual) Nucleated RBC % Seg Neutrophils # Seg Neutrophils # Man Monocytes # (Manual) PT 17.2 H INR 1.27 H APTT 44.4 H D-Dimer Heparin Anti-Xa Level ABG pH ABG pO2 ABG HCO3 ABG O2 Saturation ABG Base Excess ABG Hemoglobin Oxyhemoglobin Sodium Potassium Chloride Carbon Dioxide BUN Creatinine Glucose POC Glucose 153 H 109 H Hemoglobin A1c Lactic Acid Calcium Phosphorus Magnesium Ferritin AST ALT Alkaline Phosphatase Lactate Dehydrogenase Troponin T C-Reactive Protein Total Protein Albumin LDL Cholesterol Direct Urine Creatinine Urine Total Protein Salicylates Acetaminophen 10/30/21 10/30/21 10/30/21 23:00 Unknown Unknown WBC RBC Hgb Hct MCH RDW Plt Count Lymph % (Auto) Lymph # (Auto) Smith # (Auto) Seg Neutrophils % Seg Neuts % (Manual) Lymphocytes % (Manual) Nucleated RBC % Seg Neutrophils # Seg Neutrophils # Man Monocytes # (Manual) PT INR APTT D-Dimer > 45622 H Heparin Anti-Xa Level 0.82 H ABG pH ABG pO2 ABG HCO3 ABG O2 Saturation ABG Base Excess ABG Hemoglobin Oxyhemoglobin Sodium Potassium Chloride Carbon Dioxide BUN Creatinine Glucose POC Glucose Hemoglobin A1c Lactic Acid Calcium Phosphorus Magnesium Ferritin 208.4 H AST ALT Alkaline Phosphatase Lactate Dehydrogenase Troponin T C-Reactive Protein Total Protein Albumin LDL Cholesterol Direct Urine Creatinine Urine Total Protein Salicylates Acetaminophen 10/30/21 10/31/21 10/31/21 Unknown 04:30 04:30 WBC 14.4 H RBC Hgb Hct MCH 26 L RDW Plt Count Lymph % (Auto) Lymph # (Auto) Smith # (Auto) Seg Neutrophils % Seg Neuts % (Manual) Lymphocytes % (Manual) Nucleated RBC % Seg Neutrophils # Seg Neutrophils # Man Monocytes # (Manual) PT INR APTT D-Dimer Heparin Anti-Xa Level ABG pH ABG pO2 ABG HCO3 ABG O2 Saturation ABG Base Excess ABG Hemoglobin Oxyhemoglobin Sodium Potassium 3.5 L Chloride 107.5 H Carbon Dioxide 20 L BUN 28 H Creatinine 1.7 H Glucose 113 H POC Glucose Hemoglobin A1c Lactic Acid Calcium 7.9 L Phosphorus Magnesium Ferritin AST ALT Alkaline Phosphatase Lactate Dehydrogenase 469 H Troponin T C-Reactive Protein 13.40 H Total Protein Albumin LDL Cholesterol Direct Urine Creatinine Urine Total Protein Salicylates Acetaminophen 0210/31/21 10/31/21 04:30 05:11 15:30 WBC RBC Hgb Hct MCH RDW Plt Count Lymph % (Auto) Lymph # (Auto) Smith # (Auto) Seg Neutrophils % Seg Neuts % (Manual) Lymphocytes % (Manual) Nucleated RBC % Seg Neutrophils # Seg Neutrophils # Man Monocytes # (Manual) PT INR APTT D-Dimer Heparin Anti-Xa Level ABG pH 7.222 L ABG pO2 61.5 L ABG HCO3 ABG O2 Saturation 86.2 L ABG Base Excess -6.3 L ABG Hemoglobin 11.2 L Oxyhemoglobin 84.5 L Sodium Potassium Chloride Carbon Dioxide BUN Creatinine Glucose POC Glucose 106 H Hemoglobin A1c 6.7 H Lactic Acid Calcium Phosphorus Magnesium Ferritin AST ALT Alkaline Phosphatase Lactate Dehydrogenase Troponin T C-Reactive Protein Total Protein Albumin LDL Cholesterol Direct Urine Creatinine Urine Total Protein Salicylates Acetaminophen 10/31/21 10/31/21 10/31/21 16:07 16:35 17:45 WBC RBC Hgb Hct MCH RDW Plt Count Lymph % (Auto) Lymph # (Auto) Smith # (Auto) Seg Neutrophils % Seg Neuts % (Manual) Lymphocytes % (Manual) Nucleated RBC % Seg Neutrophils # Seg Neutrophils # Man Monocytes # (Manual) PT INR APTT D-Dimer Heparin Anti-Xa Level ABG pH 7.267 L ABG pO2 58.3 L ABG HCO3 ABG O2 Saturation 88.3 L ABG Base Excess -5.9 L ABG Hemoglobin 10.1 L Oxyhemoglobin 86.5 L Sodium Potassium Chloride Carbon Dioxide BUN Creatinine Glucose POC Glucose 115 H Hemoglobin A1c Lactic Acid Calcium Phosphorus Magnesium Ferritin AST ALT Alkaline Phosphatase Lactate Dehydrogenase Troponin T C-Reactive Protein Total Protein Albumin LDL Cholesterol Direct Urine Creatinine 383.6 H Urine Total Protein Salicylates Acetaminophen 11/01/21 11/01/21 11/01/21 00:06 05:08 06:00 WBC 12.6 H RBC 3.43 L Hgb 8.9 L Hct 28.7 L MCH 26 L RDW 15.7 H Plt Count 130 L Lymph % (Auto) Lymph # (Auto) Smith # (Auto) Seg Neutrophils % Seg Neuts % (Manual) Lymphocytes % (Manual) Nucleated RBC % Seg Neutrophils # Seg Neutrophils # Man Monocytes # (Manual) PT INR APTT D-Dimer Heparin Anti-Xa Level ABG pH ABG pO2 ABG HCO3 ABG O2 Saturation ABG Base Excess ABG Hemoglobin Oxyhemoglobin Sodium Potassium Chloride Carbon Dioxide BUN Creatinine Glucose POC Glucose 114 H 120 H Hemoglobin A1c Lactic Acid Calcium Phosphorus Magnesium Ferritin AST ALT Alkaline Phosphatase Lactate Dehydrogenase Troponin T C-Reactive Protein Total Protein Albumin LDL Cholesterol Direct Urine Creatinine Urine Total Protein Salicylates Acetaminophen 11/01/21 11/01/21 11/01/21 06:00 11:43 14:00 WBC RBC Hgb Hct MCH RDW Plt Count Lymph % (Auto) Lymph # (Auto) Smith # (Auto) Seg Neutrophils % Seg Neuts % (Manual) Lymphocytes % (Manual) Nucleated RBC % Seg Neutrophils # Seg Neutrophils # Man Monocytes # (Manual) PT INR APTT D-Dimer Heparin Anti-Xa Level ABG pH 7.349 L ABG pO2 75.6 L ABG HCO3 ABG O2 Saturation ABG Base Excess -3.9 L ABG Hemoglobin 9.8 L Oxyhemoglobin 93.5 L Sodium Potassium Chloride 114.1 H Carbon Dioxide 20 L BUN 33 H Creatinine Glucose 131 H POC Glucose 151 H Hemoglobin A1c Lactic Acid Calcium 7.7 L Phosphorus Magnesium Ferritin AST 79 H ALT 259 H Alkaline Phosphatase Lactate Dehydrogenase Troponin T C-Reactive Protein Total Protein 5.5 L Albumin 2.7 L LDL Cholesterol Direct Urine Creatinine Urine Total Protein Salicylates Acetaminophen 11/01/21 11/01/21 11/02/21 16:45 22:55 05:12 WBC RBC Hgb Hct MCH RDW Plt Count Lymph % (Auto) Lymph # (Auto) Smith # (Auto) Seg Neutrophils % Seg Neuts % (Manual) Lymphocytes % (Manual) Nucleated RBC % Seg Neutrophils # Seg Neutrophils # Man Monocytes # (Manual) PT INR APTT D-Dimer Heparin Anti-Xa Level ABG pH ABG pO2 ABG HCO3 ABG O2 Saturation ABG Base Excess ABG Hemoglobin Oxyhemoglobin Sodium Potassium Chloride Carbon Dioxide BUN Creatinine Glucose POC Glucose 119 H 129 H 140 H Hemoglobin A1c Lactic Acid Calcium Phosphorus Magnesium Ferritin AST ALT Alkaline Phosphatase Lactate Dehydrogenase Troponin T C-Reactive Protein Total Protein Albumin LDL Cholesterol Direct Urine Creatinine Urine Total Protein Salicylates Acetaminophen 11/02/21 11/02/21 11/02/21 05:35 05:35 09:35 WBC 13.5 H RBC 3.60 L Hgb 9.7 L Hct MCH 27 L RDW 15.7 H Plt Count Lymph % (Auto) Lymph # (Auto) Smith # (Auto) Seg Neutrophils % Seg Neuts % (Manual) Lymphocytes % (Manual) Nucleated RBC % Seg Neutrophils # Seg Neutrophils # Man Monocytes # (Manual) PT INR APTT D-Dimer Heparin Anti-Xa Level ABG pH 7.208 L ABG pO2 75.9 L ABG HCO3 ABG O2 Saturation 93.6 L ABG Base Excess -4.3 L ABG Hemoglobin 9.1 L Oxyhemoglobin 91.6 L Sodium Potassium 5.2 H D Chloride 112.6 H Carbon Dioxide BUN 32 H Creatinine Glucose 152 H POC Glucose Hemoglobin A1c Lactic Acid Calcium 8.2 L Phosphorus Magnesium 2.70 H Ferritin AST ALT Alkaline Phosphatase Lactate Dehydrogenase Troponin T C-Reactive Protein Total Protein Albumin LDL Cholesterol Direct Urine Creatinine Urine Total Protein Salicylates Acetaminophen 11/02/21 11/02/21 11/02/21 11:44 17:13 23:43 WBC RBC Hgb Hct MCH RDW Plt Count Lymph % (Auto) Lymph # (Auto) Smith # (Auto) Seg Neutrophils % Seg Neuts % (Manual) Lymphocytes % (Manual) Nucleated RBC % Seg Neutrophils # Seg Neutrophils # Man Monocytes # (Manual) PT INR APTT D-Dimer Heparin Anti-Xa Level ABG pH ABG pO2 ABG HCO3 ABG O2 Saturation ABG Base Excess ABG Hemoglobin Oxyhemoglobin Sodium Potassium Chloride Carbon Dioxide BUN Creatinine Glucose POC Glucose 173 H 148 H 137 H Hemoglobin A1c Lactic Acid Calcium Phosphorus Magnesium Ferritin AST ALT Alkaline Phosphatase Lactate Dehydrogenase Troponin T C-Reactive Protein Total Protein Albumin LDL Cholesterol Direct Urine Creatinine Urine Total Protein Salicylates Acetaminophen 11/03/21 11/03/21 11/03/21 04:59 06:00 06:00 WBC RBC 3.43 L Hgb 9.1 L Hct 29.0 L MCH 26 L RDW 16.4 H Plt Count Lymph % (Auto) Lymph # (Auto) Smith # (Auto) Seg Neutrophils % Seg Neuts % (Manual) Lymphocytes % (Manual) Nucleated RBC % Seg Neutrophils # Seg Neutrophils # Man Monocytes # (Manual) PT INR APTT D-Dimer Heparin Anti-Xa Level 0.17 L ABG pH ABG pO2 ABG HCO3 ABG O2 Saturation ABG Base Excess ABG Hemoglobin Oxyhemoglobin Sodium Potassium Chloride Carbon Dioxide BUN Creatinine Glucose POC Glucose 167 H Hemoglobin A1c Lactic Acid Calcium Phosphorus Magnesium Ferritin AST ALT Alkaline Phosphatase Lactate Dehydrogenase Troponin T C-Reactive Protein Total Protein Albumin LDL Cholesterol Direct Urine Creatinine Urine Total Protein Salicylates Acetaminophen 11/03/21 11/03/21 11/03/21 06:00 09:20 11:58 WBC RBC Hgb Hct MCH RDW Plt Count Lymph % (Auto) Lymph # (Auto) Smith # (Auto) Seg Neutrophils % Seg Neuts % (Manual) Lymphocytes % (Manual) Nucleated RBC % Seg Neutrophils # Seg Neutrophils # Man Monocytes # (Manual) PT INR APTT D-Dimer Heparin Anti-Xa Level ABG pH 7.274 L ABG pO2 75.6 L ABG HCO3 ABG O2 Saturation 94.9 L ABG Base Excess -2.5 L ABG Hemoglobin 9.3 L Oxyhemoglobin 92.9 L Sodium 149 H Potassium Chloride 117.5 H Carbon Dioxide BUN 32 H Creatinine Glucose 173 H POC Glucose 192 H Hemoglobin A1c Lactic Acid Calcium 8.1 L Phosphorus Magnesium Ferritin AST ALT Alkaline Phosphatase Lactate Dehydrogenase Troponin T C-Reactive Protein Total Protein Albumin LDL Cholesterol Direct Urine Creatinine Urine Total Protein Salicylates Acetaminophen 11/03/21 11/03/21 11/04/21 18:22 Unknown 00:09 WBC RBC Hgb Hct MCH RDW Plt Count Lymph % (Auto) Lymph # (Auto) Smith # (Auto) Seg Neutrophils % Seg Neuts % (Manual) Lymphocytes % (Manual) Nucleated RBC % Seg Neutrophils # Seg Neutrophils # Man Monocytes # (Manual) PT INR APTT D-Dimer Heparin Anti-Xa Level 0.29 L ABG pH ABG pO2 ABG HCO3 ABG O2 Saturation ABG Base Excess ABG Hemoglobin Oxyhemoglobin Sodium Potassium Chloride Carbon Dioxide BUN Creatinine Glucose POC Glucose 178 H 221 H Hemoglobin A1c Lactic Acid Calcium Phosphorus Magnesium Ferritin AST ALT Alkaline Phosphatase Lactate Dehydrogenase Troponin T C-Reactive Protein Total Protein Albumin LDL Cholesterol Direct Urine Creatinine Urine Total Protein Salicylates Acetaminophen 11/04/21 11/04/21 11/04/21 05:09 09:40 09:40 WBC 16.8 H RBC Hgb Hct MCH 27 L RDW 16.5 H Plt Count Lymph % (Auto) Lymph # (Auto) Smith # (Auto) Seg Neutrophils % Seg Neuts % (Manual) Lymphocytes % (Manual) Nucleated RBC % Seg Neutrophils # Seg Neutrophils # Man Monocytes # (Manual) PT INR APTT D-Dimer Heparin Anti-Xa Level ABG pH ABG pO2 ABG HCO3 ABG O2 Saturation ABG Base Excess ABG Hemoglobin Oxyhemoglobin Sodium Potassium 5.9 H Chloride 108.5 H Carbon Dioxide BUN 54 H Creatinine 1.8 H Glucose 198 H POC Glucose 182 H Hemoglobin A1c Lactic Acid Calcium Phosphorus Magnesium 3.00 H Ferritin AST ALT Alkaline Phosphatase Lactate Dehydrogenase Troponin T C-Reactive Protein Total Protein Albumin LDL Cholesterol Direct Urine Creatinine Urine Total Protein Salicylates Acetaminophen 11/04/21 11/04/21 11/04/21 12:13 13:34 14:05 WBC RBC Hgb Hct MCH RDW Plt Count Lymph % (Auto) Lymph # (Auto) Smith # (Auto) Seg Neutrophils % Seg Neuts % (Manual) Lymphocytes % (Manual) Nucleated RBC % Seg Neutrophils # Seg Neutrophils # Man Monocytes # (Manual) PT INR APTT D-Dimer Heparin Anti-Xa Level ABG pH 7.223 L ABG pO2 71.3 L ABG HCO3 ABG O2 Saturation 92.8 L ABG Base Excess ABG Hemoglobin 8.2 L Oxyhemoglobin 91.0 L Sodium Potassium Chloride Carbon Dioxide BUN Creatinine Glucose POC Glucose 184 H Hemoglobin A1c Lactic Acid Calcium Phosphorus Magnesium Ferritin AST ALT Alkaline Phosphatase Lactate Dehydrogenase Troponin T C-Reactive Protein Total Protein Albumin LDL Cholesterol Direct Urine Creatinine 184.6 H Urine Total Protein Salicylates Acetaminophen 11/04/21 11/04/21 11/05/21 18:02 Unknown 00:07 WBC RBC Hgb Hct MCH RDW Plt Count Lymph % (Auto) Lymph # (Auto) Smith # (Auto) Seg Neutrophils % Seg Neuts % (Manual) Lymphocytes % (Manual) Nucleated RBC % Seg Neutrophils # Seg Neutrophils # Man Monocytes # (Manual) PT INR APTT D-Dimer Heparin Anti-Xa Level ABG pH ABG pO2 ABG HCO3 ABG O2 Saturation ABG Base Excess ABG Hemoglobin Oxyhemoglobin Sodium Potassium Chloride Carbon Dioxide BUN Creatinine Glucose POC Glucose 262 H 259 H Hemoglobin A1c Lactic Acid Calcium Phosphorus Magnesium Ferritin AST ALT Alkaline Phosphatase Lactate Dehydrogenase Troponin T C-Reactive Protein Total Protein Albumin LDL Cholesterol Direct Urine Creatinine 190.9 H Urine Total Protein 172 H Salicylates Acetaminophen 11/05/21 11/05/21 11/05/21 04:20 04:20 05:30 WBC 17.9 H RBC 3.64 L Hgb 9.7 L Hct MCH 27 L RDW 16.4 H Plt Count Lymph % (Auto) Lymph # (Auto) Smith # (Auto) Seg Neutrophils % Seg Neuts % (Manual) Lymphocytes % (Manual) Nucleated RBC % Seg Neutrophils # Seg Neutrophils # Man Monocytes # (Manual) PT INR APTT D-Dimer Heparin Anti-Xa Level ABG pH ABG pO2 ABG HCO3 ABG O2 Saturation ABG Base Excess ABG Hemoglobin Oxyhemoglobin Sodium Potassium 5.6 H Chloride 108.4 H Carbon Dioxide BUN 71 H Creatinine 1.9 H Glucose 270 H POC Glucose 283 H Hemoglobin A1c Lactic Acid Calcium Phosphorus Magnesium Ferritin AST ALT Alkaline Phosphatase Lactate Dehydrogenase Troponin T C-Reactive Protein Total Protein Albumin LDL Cholesterol Direct Urine Creatinine Urine Total Protein Salicylates Acetaminophen 11/05/21 11/05/21 11/05/21 10:05 12:10 15:29 WBC RBC Hgb Hct MCH RDW Plt Count Lymph % (Auto) Lymph # (Auto) Smith # (Auto) Seg Neutrophils % Seg Neuts % (Manual) Lymphocytes % (Manual) Nucleated RBC % Seg Neutrophils # Seg Neutrophils # Man Monocytes # (Manual) PT INR APTT D-Dimer Heparin Anti-Xa Level ABG pH 7.248 L ABG pO2 73.7 L ABG HCO3 26.2 H ABG O2 Saturation 93.1 L ABG Base Excess ABG Hemoglobin 8.9 L Oxyhemoglobin 91.4 L Sodium Potassium Chloride Carbon Dioxide BUN Creatinine Glucose POC Glucose 225 H 199 H Hemoglobin A1c Lactic Acid Calcium Phosphorus Magnesium Ferritin AST ALT Alkaline Phosphatase Lactate Dehydrogenase Troponin T C-Reactive Protein Total Protein Albumin LDL Cholesterol Direct Urine Creatinine Urine Total Protein Salicylates Acetaminophen 11/05/21 11/05/21 11/05/21 15:51 17:32 17:40 WBC RBC Hgb Hct MCH RDW Plt Count Lymph % (Auto) Lymph # (Auto) Smith # (Auto) Seg Neutrophils % Seg Neuts % (Manual) Lymphocytes % (Manual) Nucleated RBC % Seg Neutrophils # Seg Neutrophils # Man Monocytes # (Manual) PT INR APTT D-Dimer Heparin Anti-Xa Level ABG pH ABG pO2 ABG HCO3 ABG O2 Saturation ABG Base Excess ABG Hemoglobin Oxyhemoglobin Sodium Potassium 5.2 H Chloride 107.8 H Carbon Dioxide BUN 79 H Creatinine 1.9 H Glucose 204 H POC Glucose 278 H 197 H Hemoglobin A1c Lactic Acid Calcium Phosphorus Magnesium Ferritin AST ALT Alkaline Phosphatase Lactate Dehydrogenase Troponin T C-Reactive Protein Total Protein Albumin LDL Cholesterol Direct Urine Creatinine Urine Total Protein Salicylates Acetaminophen 11/05/21 11/05/21 11/05/21 21:25 22:22 23:43 WBC RBC Hgb Hct MCH RDW Plt Count Lymph % (Auto) Lymph # (Auto) Smith # (Auto) Seg Neutrophils % Seg Neuts % (Manual) Lymphocytes % (Manual) Nucleated RBC % Seg Neutrophils # Seg Neutrophils # Man Monocytes # (Manual) PT INR APTT D-Dimer Heparin Anti-Xa Level ABG pH ABG pO2 ABG HCO3 ABG O2 Saturation ABG Base Excess ABG Hemoglobin Oxyhemoglobin Sodium Potassium 5.3 H Chloride 109.2 H Carbon Dioxide BUN 81 H Creatinine 2.0 H Glucose 195 H POC Glucose 180 H 203 H Hemoglobin A1c Lactic Acid Calcium Phosphorus Magnesium Ferritin AST ALT Alkaline Phosphatase Lactate Dehydrogenase Troponin T C-Reactive Protein Total Protein Albumin LDL Cholesterol Direct Urine Creatinine Urine Total Protein Salicylates Acetaminophen 11/05/21 11/06/21 11/06/21 Unknown 02:35 05:09 WBC RBC Hgb Hct MCH RDW Plt Count Lymph % (Auto) Lymph # (Auto) Smith # (Auto) Seg Neutrophils % Seg Neuts % (Manual) Lymphocytes % (Manual) Nucleated RBC % Seg Neutrophils # Seg Neutrophils # Man Monocytes # (Manual) PT INR APTT D-Dimer Heparin Anti-Xa Level ABG pH ABG pO2 ABG HCO3 ABG O2 Saturation ABG Base Excess ABG Hemoglobin Oxyhemoglobin Sodium 146 H Potassium 6.0 H Chloride 108.1 H 107.1 H Carbon Dioxide 21 L BUN 80 H 84 H Creatinine 2.0 H 2.0 H Glucose 238 H 235 H POC Glucose 215 H Hemoglobin A1c Lactic Acid Calcium Phosphorus Magnesium 2.80 H Ferritin AST ALT 77 H Alkaline Phosphatase Lactate Dehydrogenase Troponin T C-Reactive Protein Total Protein Albumin 3.0 L LDL Cholesterol Direct Urine Creatinine Urine Total Protein Salicylates Acetaminophen 11/06/21 11/06/21 11/06/21 05:40 08:07 08:07 WBC RBC Hgb Hct MCH RDW Plt Count Lymph % (Auto) Lymph # (Auto) Smith # (Auto) Seg Neutrophils % Seg Neuts % (Manual) Lymphocytes % (Manual) Nucleated RBC % Seg Neutrophils # Seg Neutrophils # Man Monocytes # (Manual) PT INR APTT D-Dimer Heparin Anti-Xa Level 1.24 H ABG pH 7.311 L ABG pO2 72.8 L ABG HCO3 29.7 H ABG O2 Saturation 94.1 L ABG Base Excess ABG Hemoglobin 11.4 L Oxyhemoglobin 92.3 L Sodium Potassium 5.2 H Chloride Carbon Dioxide BUN 85 H Creatinine 2.3 H Glucose 236 H POC Glucose Hemoglobin A1c Lactic Acid Calcium Phosphorus Magnesium Ferritin AST ALT Alkaline Phosphatase Lactate Dehydrogenase Troponin T C-Reactive Protein Total Protein Albumin LDL Cholesterol Direct Urine Creatinine Urine Total Protein Salicylates Acetaminophen 11/06/21 11/06/21 11/06/21 12:14 12:57 14:28 WBC RBC Hgb Hct MCH RDW Plt Count Lymph % (Auto) Lymph # (Auto) Smith # (Auto) Seg Neutrophils % Seg Neuts % (Manual) Lymphocytes % (Manual) Nucleated RBC % Seg Neutrophils # Seg Neutrophils # Man Monocytes # (Manual) PT INR APTT D-Dimer Heparin Anti-Xa Level ABG pH 7.282 L ABG pO2 72.6 L ABG HCO3 30.8 H ABG O2 Saturation 93.7 L ABG Base Excess 3.2 H ABG Hemoglobin 8.6 L Oxyhemoglobin 91.8 L Sodium Potassium Chloride Carbon Dioxide BUN 91 H Creatinine 2.6 H Glucose 259 H POC Glucose 225 H Hemoglobin A1c Lactic Acid Calcium Phosphorus Magnesium Ferritin AST ALT Alkaline Phosphatase Lactate Dehydrogenase Troponin T C-Reactive Protein Total Protein Albumin LDL Cholesterol Direct Urine Creatinine Urine Total Protein Salicylates Acetaminophen 11/06/21 11/06/21 11/06/21 17:28 19:20 21:30 WBC RBC Hgb Hct MCH RDW Plt Count Lymph % (Auto) Lymph # (Auto) Smith # (Auto) Seg Neutrophils % Seg Neuts % (Manual) Lymphocytes % (Manual) Nucleated RBC % Seg Neutrophils # Seg Neutrophils # Man Monocytes # (Manual) PT INR APTT D-Dimer Heparin Anti-Xa Level 0.73 H ABG pH ABG pO2 ABG HCO3 ABG O2 Saturation ABG Base Excess ABG Hemoglobin Oxyhemoglobin Sodium Potassium Chloride Carbon Dioxide BUN 95 H Creatinine 2.9 H Glucose 233 H POC Glucose 206 H Hemoglobin A1c Lactic Acid Calcium Phosphorus Magnesium Ferritin AST ALT Alkaline Phosphatase Lactate Dehydrogenase Troponin T C-Reactive Protein Total Protein Albumin LDL Cholesterol Direct Urine Creatinine Urine Total Protein Salicylates Acetaminophen 11/06/21 11/07/21 11/07/21 22:56 05:06 06:30 WBC RBC Hgb Hct MCH RDW Plt Count Lymph % (Auto) Lymph # (Auto) Smith # (Auto) Seg Neutrophils % Seg Neuts % (Manual) Lymphocytes % (Manual) Nucleated RBC % Seg Neutrophils # Seg Neutrophils # Man Monocytes # (Manual) PT INR APTT D-Dimer Heparin Anti-Xa Level ABG pH ABG pO2 ABG HCO3 ABG O2 Saturation ABG Base Excess ABG Hemoglobin Oxyhemoglobin Sodium 146 H Potassium Chloride Carbon Dioxide BUN 98 H Creatinine 2.8 H Glucose 202 H POC Glucose 215 H 172 H Hemoglobin A1c Lactic Acid Calcium Phosphorus 4.90 H D Magnesium 2.90 H Ferritin AST ALT Alkaline Phosphatase Lactate Dehydrogenase Troponin T C-Reactive Protein Total Protein Albumin LDL Cholesterol Direct Urine Creatinine Urine Total Protein Salicylates Acetaminophen 11/07/21 11/07/21 11/07/21 06:30 11:26 12:15 WBC 16.0 H RBC 3.06 L Hgb 8.2 L Hct 26.1 L MCH 27 L RDW 16.2 H Plt Count Lymph % (Auto) Lymph # (Auto) Smith # (Auto) Seg Neutrophils % Seg Neuts % (Manual) 77.0 H Lymphocytes % (Manual) 11.0 L Nucleated RBC % 2.0 H Seg Neutrophils # Seg Neutrophils # Man 12.3 H Monocytes # (Manual) PT INR APTT D-Dimer Heparin Anti-Xa Level ABG pH 7.298 L ABG pO2 73.0 L ABG HCO3 33.3 H ABG O2 Saturation 94.4 L ABG Base Excess 5.8 H ABG Hemoglobin 8.2 L Oxyhemoglobin 92.7 L Sodium Potassium Chloride Carbon Dioxide BUN Creatinine Glucose POC Glucose 179 H Hemoglobin A1c Lactic Acid Calcium Phosphorus Magnesium Ferritin AST ALT Alkaline Phosphatase Lactate Dehydrogenase Troponin T C-Reactive Protein Total Protein Albumin LDL Cholesterol Direct Urine Creatinine Urine Total Protein Salicylates Acetaminophen 11/07/21 11/07/21 11/07/21 17:57 22:16 23:49 WBC RBC Hgb Hct MCH RDW Plt Count Lymph % (Auto) Lymph # (Auto) Smith # (Auto) Seg Neutrophils % Seg Neuts % (Manual) Lymphocytes % (Manual) Nucleated RBC % Seg Neutrophils # Seg Neutrophils # Man Monocytes # (Manual) PT INR APTT D-Dimer Heparin Anti-Xa Level ABG pH ABG pO2 ABG HCO3 ABG O2 Saturation ABG Base Excess ABG Hemoglobin Oxyhemoglobin Sodium Potassium Chloride Carbon Dioxide BUN Creatinine Glucose POC Glucose 166 H 223 H 190 H Hemoglobin A1c Lactic Acid Calcium Phosphorus Magnesium Ferritin AST ALT Alkaline Phosphatase Lactate Dehydrogenase Troponin T C-Reactive Protein Total Protein Albumin LDL Cholesterol Direct Urine Creatinine Urine Total Protein Salicylates Acetaminophen 11/08/21 11/08/21 11/08/21 04:20 04:20 06:16 WBC 22.1 H RBC 3.01 L Hgb 8.1 L Hct 25.6 L MCH 27 L RDW 15.4 H Plt Count Lymph % (Auto) Lymph # (Auto) Smith # (Auto) Seg Neutrophils % Seg Neuts % (Manual) Lymphocytes % (Manual) Nucleated RBC % Seg Neutrophils # Seg Neutrophils # Man Monocytes # (Manual) PT INR APTT D-Dimer Heparin Anti-Xa Level ABG pH ABG pO2 ABG HCO3 ABG O2 Saturation ABG Base Excess ABG Hemoglobin Oxyhemoglobin Sodium 151 H Potassium 3.1 L D Chloride 107.3 H Carbon Dioxide 31 H BUN 82 H Creatinine 1.8 H Glucose 232 H POC Glucose 198 H Hemoglobin A1c Lactic Acid Calcium 8.1 L Phosphorus Magnesium Ferritin AST ALT Alkaline Phosphatase Lactate Dehydrogenase Troponin T C-Reactive Protein Total Protein Albumin LDL Cholesterol Direct Urine Creatinine Urine Total Protein Salicylates Acetaminophen 11/08/21 11/08/21 11/08/21 11:38 12:00 18:29 WBC RBC Hgb Hct MCH RDW Plt Count Lymph % (Auto) Lymph # (Auto) Smith # (Auto) Seg Neutrophils % Seg Neuts % (Manual) Lymphocytes % (Manual) Nucleated RBC % Seg Neutrophils # Seg Neutrophils # Man Monocytes # (Manual) PT INR APTT D-Dimer Heparin Anti-Xa Level ABG pH ABG pO2 ABG HCO3 ABG O2 Saturation ABG Base Excess ABG Hemoglobin Oxyhemoglobin Sodium Potassium 3.0 L Chloride Carbon Dioxide BUN Creatinine Glucose POC Glucose 190 H 211 H Hemoglobin A1c Lactic Acid Calcium Phosphorus Magnesium Ferritin AST ALT Alkaline Phosphatase Lactate Dehydrogenase Troponin T C-Reactive Protein Total Protein Albumin LDL Cholesterol Direct Urine Creatinine Urine Total Protein Salicylates Acetaminophen 11/08/21 11/08/21 11/09/21 21:34 21:40 00:36 WBC RBC Hgb Hct MCH RDW Plt Count Lymph % (Auto) Lymph # (Auto) Smith # (Auto) Seg Neutrophils % Seg Neuts % (Manual) Lymphocytes % (Manual) Nucleated RBC % Seg Neutrophils # Seg Neutrophils # Man Monocytes # (Manual) PT INR APTT D-Dimer Heparin Anti-Xa Level ABG pH ABG pO2 ABG HCO3 ABG O2 Saturation ABG Base Excess ABG Hemoglobin Oxyhemoglobin Sodium 148 H Potassium 2.8 L* Chloride Carbon Dioxide 31 H BUN 68 H Creatinine 1.5 H Glucose 191 H POC Glucose 194 H 140 H Hemoglobin A1c Lactic Acid Calcium 8.2 L Phosphorus Magnesium Ferritin AST ALT Alkaline Phosphatase Lactate Dehydrogenase Troponin T C-Reactive Protein Total Protein Albumin LDL Cholesterol Direct Urine Creatinine Urine Total Protein Salicylates Acetaminophen 11/09/21 11/09/21 11/09/21 04:51 04:51 04:51 WBC 27.6 H RBC 3.18 L Hgb 8.4 L Hct 26.6 L MCH 27 L RDW 15.3 H Plt Count Lymph % (Auto) Lymph # (Auto) Smith # (Auto) Seg Neutrophils % Seg Neuts % (Manual) Lymphocytes % (Manual) Nucleated RBC % Seg Neutrophils # Seg Neutrophils # Man Monocytes # (Manual) PT INR APTT D-Dimer Heparin Anti-Xa Level 0.18 L ABG pH ABG pO2 ABG HCO3 ABG O2 Saturation ABG Base Excess ABG Hemoglobin Oxyhemoglobin Sodium 148 H Potassium 2.7 L* Chloride Carbon Dioxide BUN 59 H Creatinine 1.4 H Glucose 143 H POC Glucose Hemoglobin A1c Lactic Acid Calcium 8.3 L Phosphorus Magnesium Ferritin AST ALT Alkaline Phosphatase Lactate Dehydrogenase Troponin T C-Reactive Protein Total Protein Albumin LDL Cholesterol Direct Urine Creatinine Urine Total Protein Salicylates Acetaminophen 11/09/21 11/09/21 11/09/21 05:52 08:45 11:00 WBC RBC Hgb Hct MCH RDW Plt Count Lymph % (Auto) Lymph # (Auto) Smith # (Auto) Seg Neutrophils % Seg Neuts % (Manual) Lymphocytes % (Manual) Nucleated RBC % Seg Neutrophils # Seg Neutrophils # Man Monocytes # (Manual) PT INR APTT D-Dimer Heparin Anti-Xa Level ABG pH ABG pO2 73.2 L ABG HCO3 33.8 H ABG O2 Saturation ABG Base Excess 8.7 H ABG Hemoglobin 8.5 L Oxyhemoglobin 94.1 L Sodium Potassium Chloride Carbon Dioxide BUN Creatinine Glucose POC Glucose 166 H 136 H Hemoglobin A1c Lactic Acid Calcium Phosphorus Magnesium Ferritin AST ALT Alkaline Phosphatase Lactate Dehydrogenase Troponin T C-Reactive Protein Total Protein Albumin LDL Cholesterol Direct Urine Creatinine Urine Total Protein Salicylates Acetaminophen 11/09/21 11/09/21 11/09/21 15:48 16:10 Unknown WBC RBC Hgb Hct MCH RDW Plt Count Lymph % (Auto) Lymph # (Auto) Smith # (Auto) Seg Neutrophils % Seg Neuts % (Manual) Lymphocytes % (Manual) Nucleated RBC % Seg Neutrophils # Seg Neutrophils # Man Monocytes # (Manual) PT INR APTT D-Dimer Heparin Anti-Xa Level 0.24 L ABG pH ABG pO2 ABG HCO3 ABG O2 Saturation ABG Base Excess ABG Hemoglobin Oxyhemoglobin Sodium Potassium 2.8 L* Chloride Carbon Dioxide 31 H BUN 53 H Creatinine 1.3 H Glucose 208 H POC Glucose 203 H Hemoglobin A1c Lactic Acid Calcium 7.9 L Phosphorus Magnesium Ferritin AST ALT Alkaline Phosphatase Lactate Dehydrogenase Troponin T C-Reactive Protein Total Protein Albumin LDL Cholesterol Direct Urine Creatinine Urine Total Protein Salicylates Acetaminophen Chest x-ray: image reviewed Allied health notes reviewed: RT
[2021-11-09] MEDS ORDERED: POTASSIUM CHLORIDE 20 MEQ 20 MEQ/100 ML BAG IV SCH ×2 (18:30→20:00)
[2021-11-09] MEDS ORDERED: FUROSEMIDE 40 MG/4 ML INJ IV ONE (19:00)
[2021-11-09] MEDS: ACETAMINOPHEN 325 MG TAB PO PRN (19:56)
[2021-11-09] MEDS: INSULIN GLARGINE 100 UNITS/ML SUB-Q SCH (21:00)
[2021-11-09 21:55] LABS: Calcium 7.8 mg/dL (8.4-10.2)
[2021-11-10 04:42] LABS: Hematocrit 22.9 % (30.3-42.9); Hemoglobin 7.5 gm/dl (10.1-14.3); Mean Corpuscular HGB Conc 33 % (30-34); Mean Corpuscular Volume 83 fl (79-97); Platelet Count 231 K/mm3 (140-440); Red Blood Count 2.75 M/mm3 (3.65-5.03); Red Cell Distribution Width 15.1 % (13.2-15.2)
[2021-11-10 04:53] LABS: Calcium 8.1 mg/dL (8.4-10.2)
--- NOTE | 2021-11-10 05:36 | XRay Report ---
CHEST 1 VIEW INDICATION / CLINICAL INFORMATION: F/U patient is intubated. COMPARISON: Chest x-ray 11/08/2021 FINDINGS: SUPPORT DEVICES: Stable, satisfactory device positioning. HEART / MEDIASTINUM: Unchanged LUNGS / PLEURA: Mild prominence of central vasculature and opacities in the left lung base without si gnificant interval change. No pneumothorax. ADDITIONAL FINDINGS: No significant additional findings. IMPRESSION: 1. No significant change. Signer Name: Martínez Rosenberg II, MD Signed: 11/10/2021 5:31 AM Workstation Name: [id number]
[2021-11-10] MEDS: INSULIN LISPRO 100 UNIT/ML SUB-Q SCH ×3 (06:33→18:25)
[2021-11-10] MEDS: hydrALAZINE 25 MG TAB PO SCH ×3 (06:43→21:12)
[2021-11-10] MEDS: METOPROLOL TARTRATE 50 MG TAB FEEDTUBE SCH ×4 (06:44→18:24)
[2021-11-10] MEDS: POTASSIUM CHLORIDE 20 MEQ 20 MEQ/100 ML BAG IV SCH ×2 (06:45→07:58)
[2021-11-10] MEDS: FREE WATER PO SCH (06:46)
[2021-11-10] MEDS ORDERED: MAGNESIUM SULFATE 2 GM/50 ML BAG IV SCH (08:00)
[2021-11-10] MEDS ORDERED: POTASSIUM CHLORIDE 20 MEQ PACKET FEEDTUBE SCH ×2 (08:00→14:36)
[2021-11-10] MEDS: FUROSEMIDE 40 MG TAB PO SCH (09:32)
[2021-11-10] MEDS: SPIRONOLACTONE 25 MG TAB PO SCH (09:33)
[2021-11-10] MEDS: FAMOTIDINE 10 MG TAB PO SCH ×2 (09:33→21:12)
[2021-11-10] MEDS: AMIODARONE 200 MG TAB PO SCH (09:34)
--- NOTE | 2021-11-10 10:22 | Progress Note ---
Assessment and Plan Patient is a 66-year-old female with unknown past medical history brought into the ED following outside of hospital cardiac arrest thought to be PEA with thought to have downtime of 7 to 9 minutes however details are unclear S/P PEA cardiopulmonary arrest-No longer on pressors Acute hypoxic respiratory failure-pulm following Septic shock Aspiration pneumonia Pneumothorax- s/p CT Acute DVT-on Heparin gtt Hypokalemia Transaminitis Echo 10/30/2021-technically difficult study due to body habitus. EF 25 to 30%. Right ventricular systolic function is normal. No pericardial effusion Plan: Continue metoprolol 50 mg p.o. every 6 hours Continue amio 200mg PO QD, Imdur 30mg PO QD, and hydralazine 50mg PO TID No LAYO/ ARB due to elevated creatinine Patient currently anticoagulated on heparin drip Initiate Lasix 40 mg p.o. daily for diuresis Patient seen in conjunction with Dr. Archer who agrees with this plan of care - Patient Problems (1) Cardiopulmonary arrest Current Visit: Yes Status: Acute (2) Hypokalemia Current Visit: Yes Status: Acute (3) Transaminitis Current Visit: Yes Status: Acute (4) Aspiration pneumonia Current Visit: Yes Status: Acute (5) Acute hypoxemic respiratory failure Current Visit: Yes Status: Acute (6) Septic shock Current Visit: Yes Status: Acute (7) Toxic metabolic encephalopathy Current Visit: Yes Status: Acute (8) Shock liver Current Visit: Yes Status: Acute Subjective Date of service: 11/10/21 Principal diagnosis: AHRF; Cardiac arrest; R. pneumothorax; pneumonia; AMS; DVT's; SIERRA; Obesity Interval history: Patient remains intubated. Patient is more awake and alert this a.m. Patient remain in sinus rhythm trending sinus 70s Objective Vital Signs Temp Pulse Pulse Resp BP Pulse Ox 11/10/21 09:32 70 123/68 11/10/21 08:30 71 23 134/77 99 11/10/21 08:00 100 F H 72 22 149/83 97 11/10/21 07:45 100.4 F H 11/10/21 07:31 73 16 152/80 99 11/10/21 07:08 72 164/83 100 11/10/21 07:00 71 21 164/83 97 11/10/21 06:45 71 160/82 11/10/21 06:44 75 132/87 11/10/21 06:43 71 160/72 11/10/21 06:30 73 22 160/82 97 11/10/21 06:00 75 71 17 179/88 95 11/10/21 05:31 73 15 179/79 11/10/21 05:00 76 25 H 169/81 98 11/10/21 04:30 74 21 161/86 98 11/10/21 04:00 100 F H 71 22 155/68 98 11/10/21 03:51 100 F H 11/10/21 03:30 68 19 144/68 97 11/10/21 03:00 72 15 160/77 97 11/10/21 02:30 71 24 150/71 93 11/10/21 02:00 71 76 18 154/74 97 11/10/21 01:30 70 15 150/73 97 11/10/21 01:00 72 18 150/78 98 11/10/21 00:30 69 17 132/70 95 11/10/21 00:01 76 22 135/74 98 11/10/21 00:00 73 11/09/21 23:39 99.7 F H 11/09/21 23:30 70 16 136/66 97 11/09/21 23:00 72 17 138/67 97 11/09/21 22:37 76 18 136/67 99 11/09/21 22:30 73 16 136/67 96 11/09/21 22:00 99.0 F 73 23 134/66 97 11/09/21 21:30 72 23 134/66 98 11/09/21 21:20 71 135/71 11/09/21 21:00 72 76 14 135/71 97 11/09/21 20:56 21 11/09/21 20:30 74 15 133/72 97 11/09/21 20:00 100.2 F H 76 20 141/74 95 11/09/21 19:56 34 H 11/09/21 19:48 77 30 H 158/82 97 11/09/21 19:30 77 33 H 158/82 96 11/09/21 19:00 100.0 F H 78 76 24 159/83 96 11/09/21 18:30 71 30 H 150/68 97 11/09/21 18:00 71 31 H 146/76 96 11/09/21 17:31 74 33 H 151/79 95 11/09/21 17:22 72 140/77 11/09/21 17:01 75 32 H 140/77 96 11/09/21 16:31 72 32 H 141/70 96 11/09/21 16:17 99.9 F H 11/09/21 16:00 72 71 30 H 117/72 97 11/09/21 15:30 71 26 H 122/65 98 11/09/21 15:00 70 15 128/61 97 11/09/21 14:30 71 21 139/64 96 11/09/21 14:00 145/66 95 11/09/21 13:30 70 19 143/79 96 11/09/21 13:00 73 18 150/82 99 11/09/21 12:31 72 22 142/80 97 11/09/21 12:00 100.2 F H 76 72 24 160/91 97 11/09/21 11:45 99.3 F 11/09/21 11:30 80 42 H 181/98 95 11/09/21 11:00 77 41 H 178/95 94 11/09/21 10:31 82 24 184/92 98 - Physical Examination General: Other (Intubated and sedated) HEENT: Positive: Normocephaly Neck: Positive: trachea midline Cardiac: Positive: Reg Rate and Rhythm Lungs: Positive: Ventilated Respirations Neuro: Positive: Other (sedated) Abdomen: Positive: Soft, Active Bowel Sounds Skin: Negative: Rash Musculoskeletal: No Fluid Collection Extremities: Present: edema - Labs and Meds CBC 11/10/21 Range/Units 04:17 WBC 24.5 H (4.5-11.0) K/mm3 RBC 2.75 L (3.65-5.03) M/mm3 Hgb 7.5 L (10.1-14.3) gm/dl Hct 22.9 L (30.3-42.9) % Plt Count 231 (140-440) K/mm3 Comprehensive Metabolic Panel 11/09/21 11/09/21 11/10/21 Range/Units 16:10 21:30 04:17 Sodium 143 142 145 (137-145) mmol/L Potassium 2.8 L* 3.6 D 2.9 L* (3.6-5.0) mmol/L Chloride 102.9 103.8 105.9 (98-107) mmol/L Carbon Dioxide 31 H 29 35 H (22-30) mmol/L BUN 53 H 52 H 48 H (7-17) mg/dL Creatinine 1.3 H 1.4 H 1.2 (0.6-1.2) mg/dL Glucose 208 H 185 H 212 H (65-100) mg/dL Calcium 7.9 L 7.8 L 8.1 L (8.4-10.2) mg/dL - Imaging and Cardiology Echo: report reviewed - Telemetry EKG Rhythm: Sinus Rhythm - EKG Sinus rhythms and dysrhythmias: sinus rhythm Ventricular dysrhythmias: ventricular premature com - Allied health notes Allied health notes reviewed: RT
--- NOTE | 2021-11-10 12:11 | Progress Note ---
<SHAMEKA JOHNSTON - Last Filed: 11/10/21 14:46> Assessment and Plan Assessment and plan: This is a 66-year-old female with past medical history of HTN and Obesity admitted for septic shock, s/p cardiac arrest with ROSC in the field now intubated and on ventilatory support Hospital Course to Date: 10/30: Intubated and sedated, on fentanyl gtt. Open eyes spontaneously but does not follow any commands. On vasopressors, titrate as tolerated for MAP above 65. Patient febrile overnight, continue empiric IV Abx, culture data and COVID PCR pending. Patient is also s/p CT placement due to spontaneous pneumothorax. 2D echo is pending and Cardiology is consulted. 10/31: Patient remains intubated and following commands. Levophed drip stopped and potassium repleted. Patient started on tube feeding. Remains in soft bilateral restraints. 11/01: RN noted ST changes on BSM and 12 lead EKG obtained which showed ST. Given Ativan 1mg for agitation as she is maxed on fentanyl drip and IV push fentanyl d id not seem to help. Patient was started on CPAP this morning by RT but remained on fentanyl drip and was having periods of apnea. Plan was to retry CPAP again in the p.m. with sedation off. 11/02: Rate increased r/t hypercapnea on ABG, sedation reduced. Given kionex for hyperkalemia and was started on levophed overnight for hypotension. 11/03: Overnight patient had tachycardia and was given Cardizem and Lopressor. Lopressor was repeated in the a.m. due to tachycardia. Patient will be started on amiodarone with a bolus per cardiology. Patient started on normal saline per liter per [facility] and steroids for angioedema. Noted to have bright red blood when suctioned from [place] ETT. Remains on heparin drip as H/H is stable for now. Will reevaluate. Fentanyl drip was restarted last night due to agitation. Dr. Flores updated family today 11/04: Patient was sedated on fentanyl however off sedation is able to follow commands, a.m. labs completed in the p.m. and show hyperkalemia with increased renal function studies. Nephrology, neurology consulted by [facility]. Given Kayexalate, insulin and D50 for hyperkalemia. Patient remains on amiodarone. 11/05: Patient needed to be sedated on fentanyl again to today. overnight krishna was replaced. Hyperkalemia->given kionex 60 for 5.6. Repeat K 6-> Dr. Grant informed and requested bumex, kionex, insulin, d50, calcium gluconate and sodium bicarb with repeat BMP in 2 hours which were placed. HR remains elevated. 11/06: Patient remained in atrial fibrillation/atrial flutter with heart rate in the 150s despite being on amnio drip and was given amnio bolus, Cardizem bolus and started on Cardizem drip by cardiology. Patient is on beta-blockers p.o. scheduled and to feedings changed to Nepro. Kayexalate was given in the morning by nephrology due to hyperkalemia. 11/07: Patient is only responsive to mild stimuli, precedex added in an attempt to wean off fentanyl gtt to better assess her mental status. Neurology also on consult, pending MRI and EEG. Patient remains in Aflutter this am, HR in the 80 to 90s, still on amiodarone and heparin gtt. 11/08: Fentanyl gtt is off, only on precedex gtt. Patient is still not following any commands. MRI brain and EEG completed. Neuro recommendations noted, sedatives agents decreased. FWF added for hypernatremia and low K repleted, repeat labs ordered. Placed a call and spoke with patient's daughter, Eva Brown . She was updated on patient's conditions and status. All questions and concerns were voiced at this time. 11/09: Patient is awake and alert this am, following commands and appropriate. Remains on precedex gtt, plan for possible PST today. Hypertensive overnight, meds adjusted by Cardio and PRN Hydralazine added for SBP greater than 160. CT dislodged overnight, CXR is stable with no significant change. F/U CXR in the am. Patient's daughter, Eva Brown, visited with patient. She was updated on patient's status and goal of care for today. All questions and concerns were voiced at this time. 11/10: Mentation remains intact, still on precedex gtt. This am CXR noted still with fluid overload s/p X1 dose of IV lasix, good response from IV lasix overnight. Hypernatremia improved, D5W d/dayday. Still with persistent hypokalemia, continue electrolytes replacement and frequent lab check. Daily IV lasix and aldactone added by Cardio. Patient is also with persistent low grade fevers overnight, leukocytosis with mild improvement this am. Will get a repeat sputum culture, hold off on IV abx for now. Consider ID consult if fevers and leukocytosis persist. Patient tolerated PST X4hrs yesterday. PST again today, plan to wean to extubate if tolerated. Assessment and Plan #Hypertension #New Onset Atrial fibrillation/atrial flutter #HFrEF #s/p Cardiac Arrest with ROSC - Outside hospital cardiac arrest with ROSC - New onset Afib/Aflutter--> SR on the monitor this am - Cardiology consulted, appreciate recommendations - S/p Cardizem gtt- d/c due to low EF; now on PO Amio - 10/30 Echocardiogram shows left ventricular systolic function severely decreased, LVEF 25 to 30%, no pericardial effusion - Hypertensive overnight, meds adjusted by Cardio - PRN Hydralazive for SBP greater than 160 - Continue BB per Cardio - IV lasix and aldactone added - Continue blood pressure monitor per protocol - Strick I&Os and daily weight #Acute Hypoxemic Respiratory Failure #Spontaneous Pneumothorax s/p CT placement - Intubated in the filed post cardiac arrest on 10/29 - Vent Setting:CPAP-35%,8 PS-14 - This Am ABG pending - CCM consulted, appreciate recommendations - VAP bundle addressed - Aspiration precaution HOB above 30 - Daily SBT and SAT trials as tolerated - Daily ABG and CXR - Continue SPO2 monitoring for SPO2 goal above 92% #Acute Metabolic Encephalopathy - Awake and appropriate this am, following commands - Remains on prexcedex gtt, Titrate for RASS goal of 0 to -1 - Neurology on consult - EEG and MRI noted, Neuro recommend to cut down on sedation as possible - Continue to hold Seroquel - Avoid benzodiazepine to reduce the possibility of delirium - Prn analgesia for CPOT greater than 3 #Hypokalemia #Acute Kidney Injury (SIERRA) most likely ATN - Due to hypoperfusion/hypotension and septic shock - Nephrology consulted, appreciate recommendations - Strict intake and output - Avoid nephrotoxic medications; Renally dose medications - Monitor and replace electrolytes as needed - BMP Qshift #Septic Shock #Leukocytosis - s/p cardiac arrest with ROSC in the field - Presented febrile, with elevated lactic, leukocytosis, and hypotnesive required pressors - Blood culture, urine and sputum culture are negative - Patient completed X5days course of IV Abx - Persistent low grade fevers, WBCs with mild improvement - Repeat Sputum culture ordered - Hold off on any IV Abx for now - Will continue to trend CBC #Acute BLE DVT - [place] [id number] on admit - CTA chest with no evidence of PE - 2/6 BLE doppler + acute DVT in the left posterior tibial vein and bilateral peroneal veins - Remains on Heparin gtt per protocol #Transaminitis #Shock liver - Most likely reactive s/p cardiac arrest - LFT down trending - Continue to trend LTFs #Hyperglycemia - Hbg A1C 6.7 - Continue SSI and lantus qHS - Avoid Hypoglycemia The high probability of a clinically significant, sudden or life threatening deterioration of the [multiple] system(s) required my full and direct attention, intervention and personal management. The aggregate critical care time was [60] minutes. This time is in addition to time spent performing reported procedures but includes the following: [x] Data Review and interpretation [x] Patient assessment and monitoring of vital signs [x] Documentation [x] Medication orders and management Disposition Plan: ICU Total Time Spent with Patient (Minutes): 60 History Interval history: Patient seen and examined at the bedside. Remains intubated, awake and alert this am, following commands. Still on precedex gtt. IAM overnight Hospitalist Physical - Constitutional Vitals: Temp Pulse Resp BP Pulse Ox 100.0 F H 71 26 H 135/67 97 11/10/21 11:35 11/10/21 11:30 11/10/21 11:30 11/10/21 11:30 11/10/21 11:30 General appearance: Present: no acute distress, obese, other (Intubated ) - EENT Eyes: Present: PERRL, EOM intact ENT: hearing intact - Neck Neck: Present: normal ROM - Respiratory Respiratory effort: normal Respiratory: bilateral: rhonchi - Cardiovascular Rhythm: regular Heart Sounds: Present: S1 & S2 - Extremities Extremities: no ischemia, pulses intact, pulses symmetrical Extremity abnormal: edema - Peripheral Assessment Generalized Edema Type: Pitting Edema Degree: 2+ Capillary Refill: < 3 seconds Skin Temperature: Warm Peripheral Pulses: within normal limits - Abdominal General gastrointestinal: soft, non-distended, normal bowel sounds - Integumentary Integumentary: Present: warm, dry - Psychiatric Psychiatric: appropriate mood/affect, cooperative, other (Intubated ) - Neurologic Neurologic: moves all extremities, other (Following commands) - Allied Health Allied health notes reviewed: nursing HEART Score - HEART Score Troponin: Troponin T 1.150 ng/mL (0.00-0.029) H* D 10/29/21 22:34 Results - Labs CBC & Chem 7: 11/10/21 04:17 11/10/21 12:45 Labs: Laboratory Last Values WBC 24.5 K/mm3 (4.5-11.0) H 11/10/21 04:17 RBC 2.75 M/mm3 (3.65-5.03) L 11/10/21 04:17 Hgb 7.5 gm/dl (10.1-14.3) L 11/10/21 04:17 Hct 22.9 % (30.3-42.9) L 11/10/21 04:17 MCV 83 fl (79-97) 11/10/21 04:17 MCH 27 pg (28-32) L 11/10/21 04:17 MCHC 33 % (30-34) 11/10/21 04:17 RDW 15.1 % (13.2-15.2) 11/10/21 04:17 Plt Count 231 K/mm3 (140-440) 11/10/21 04:17 Lymph % (Auto) 6.2 % (13.4-35.0) L 10/30/21 04:30 Falls % (Auto) 5.5 % (0.0-7.3) 10/30/21 04:30 Eos % (Auto) 0.1 % (0.0-4.3) 10/30/21 04:30 Baso % (Auto) 0.1 % (0.0-1.8) 10/30/21 04:30 Lymph # (Auto) 1.0 K/mm3 (1.2-5.4) L 10/30/21 04:30 Falls # (Auto) 0.9 K/mm3 (0.0-0.8) H 10/30/21 04:30 Eos # (Auto) 0.0 K/mm3 (0.0-0.4) 10/30/21 04:30 Baso # (Auto) 0.0 K/mm3 (0.0-0.1) 10/30/21 04:30 Add Manual Diff Complete 11/07/21 06:30 Total Counted 100 11/07/21 06:30 Seg Neutrophils % 88.1 % (40.0-70.0) H 10/30/21 04:30 Seg Neuts % (Manual) 77.0 % (40.0-70.0) H 11/07/21 06:30 Band Neutrophils % 1.0 % 11/07/21 06:30 Lymphocytes % (Manual) 11.0 % (13.4-35.0) L 11/07/21 06:30 Reactive Lymphs % (Man) 3.0 % 11/07/21 06:30 Monocytes % (Manual) 2.0 % (0.0-7.3) 11/07/21 06:30 Eosinophils % (Manual) 0 % (0.0-4.3) 11/07/21 06:30 Basophils % (Manual) 0 % (0.0-1.8) 11/07/21 06:30 Metamyelocytes % 1.0 % 11/07/21 06:30 Myelocytes % 5.0 % 11/07/21 06:30 Promyelocytes % 0 % 11/07/21 06:30 Blast Cells % 0 % 11/07/21 06:30 Nucleated RBC % 2.0 % (0.0-0.9) H 11/07/21 06:30 Seg Neutrophils # 14.2 K/mm3 (1.8-7.7) H 10/30/21 04:30 Seg Neutrophils # Man 12.3 K/mm3 (1.8-7.7) H 11/07/21 06:30 Band Neutrophils # 0.2 K/mm3 11/07/21 06:30 Lymphocytes # (Manual) 1.8 K/mm3 (1.2-5.4) 11/07/21 06:30 Abs React Lymphs (Man) 0.5 K/mm3 11/07/21 06:30 Monocytes # (Manual) 0.3 K/mm3 (0.0-0.8) 11/07/21 06:30 Eosinophils # (Manual) 0.0 K/mm3 (0.0-0.4) 11/07/21 06:30 Basophils # (Manual) 0.0 K/mm3 (0.0-0.1) 11/07/21 06:30 Metamyelocytes # 0.2 K/mm3 11/07/21 06:30 Myelocytes # 0.8 K/mm3 11/07/21 06:30 Promyelocytes # 0.0 K/mm3 11/07/21 06:30 Blast Cells # 0.0 K/mm3 11/07/21 06:30 WBC Morphology Not Reportable 11/07/21 06:30 Hypersegmented Neuts Not Reportable 11/07/21 06:30 Hyposegmented Neuts Not Reportable 11/07/21 06:30 Hypogranular Neuts Not Reportable 11/07/21 06:30 Smudge Cells Not Reportable 11/07/21 06:30 Toxic Granulation Not Reportable 11/07/21 06:30 Toxic Vacuolation Not Reportable 11/07/21 06:30 Dohle Bodies Not Reportable 11/07/21 06:30 Pelger-Huet Anomaly Not Reportable 11/07/21 06:30 Manny Rods Not Reportable 11/07/21 06:30 Platelet Estimate Consistent w auto 11/07/21 06:30 Clumped Platelets Not Reportable 11/07/21 06:30 Plt Clumps, EDTA Not Reportable 11/07/21 06:30 Large Platelets 1+ 11/07/21 06:30 Giant Platelets Not Reportable 11/07/21 06:30 Platelet Satelliting Not Reportable 11/07/21 06:30 Plt Morphology Comment Not Reportable 11/07/21 06:30 RBC Morphology Not Reportable 11/07/21 06:30 Dimorphic RBCs Not Reportable 11/07/21 06:30 Polychromasia Not Reportable 11/07/21 06:30 Hypochromasia 1+ 11/07/21 06:30 Poikilocytosis Not Reportable 11/07/21 06:30 Anisocytosis Not Reportable 11/07/21 06:30 Microcytosis Not Reportable 11/07/21 06:30 Macrocytosis Not Reportable 11/07/21 06:30 Spherocytes 1+ 11/07/21 06:30 Pappenheimer Bodies Not Reportable 11/07/21 06:30 Sickle Cells Not Reportable 11/07/21 06:30 Target Cells 1+ 11/07/21 06:30 Tear Drop Cells Not Reportable 11/07/21 06:30 Ovalocytes Not Reportable 11/07/21 06:30 Helmet Cells Not Reportable 11/07/21 06:30 [place] Bodies Not Reportable 11/07/21 06:30 [place] Rings Not Reportable 11/07/21 06:30 [place] Cells Not Reportable 11/07/21 06:30 Bite Cells Not Reportable 11/07/21 06:30 Crenated Cell Not Reportable 11/07/21 06:30 Elliptocytes Not Reportable 11/07/21 06:30 Acanthocytes (Spur) Not Reportable 11/07/21 06:30 Rouleaux Not Reportable 11/07/21 06:30 Hemoglobin C Crystals Not Reportable 11/07/21 06:30 Schistocytes Not Reportable 11/07/21 06:30 Malaria parasites Not Reportable 11/07/21 06:30 Magdy Bodies Not Reportable 11/07/21 06:30 Hem Pathologist Commnt No 11/07/21 06:30 PT 17.2 Sec. (12.2-14.9) H 10/30/21 16:30 INR 1.27 (0.87-1.13) H 10/30/21 16:30 APTT 44.4 Sec. (24.2-36.6) H 10/30/21 16:30 D-Dimer > 19555 ng/mlDDU (0-234) H 10/30/21 Unknown Heparin Anti-Xa Level 0.12 U.I./ml (0.3-0.7) L 11/10/21 08:39 ABG pH 7.447 pH Units (7.350-7.450) 11/09/21 08:45 ABG pCO2 50.0 mm Hg 11/09/21 08:45 ABG pO2 73.2 mm Hg (80.0-90.0) L 11/09/21 08:45 ABG HCO3 33.8 mmol/L (20.0-26.0) H 11/09/21 08:45 ABG O2 Saturation 96.0 % (95.0-99.0) 11/09/21 08:45 ABG O2 Content 11.3 (0.0-44) 11/09/21 08:45 ABG Base Excess 8.7 mmol/L (-2.0-3.0) H 11/09/21 08:45 ABG Hemoglobin 8.5 gm/dl (12.0-16.0) L 11/09/21 08:45 ABG Carboxyhemoglobin 1.5 % (0.0-5.0) 11/09/21 08:45 ABG Methemoglobin 0.5 % (0.0-1.5) 11/09/21 08:45 Oxyhemoglobin 94.1 % (95.0-99.0) L 11/09/21 08:45 FiO2 35 % 11/09/21 08:45 Sodium 145 mmol/L (137-145) 11/10/21 04:17 Potassium 2.9 mmol/L (3.6-5.0) L* 11/10/21 04:17 Chloride 105.9 mmol/L (98-107) 11/10/21 04:17 Carbon Dioxide 35 mmol/L (22-30) H 11/10/21 04:17 Anion Gap 7 mmol/L 11/10/21 04:17 BUN 48 mg/dL (7-17) H 11/10/21 04:17 Creatinine 1.2 mg/dL (0.6-1.2) 11/10/21 04:17 Estimated GFR 54 ml/min 11/10/21 04:17 BUN/Creatinine Ratio 40 % 11/10/21 04:17 Glucose 212 mg/dL (65-100) H 11/10/21 04:17 POC Glucose 152 mg/dL (70-105) H 11/10/21 11:03 Hemoglobin A1c 6.7 % (4-6) H 10/31/21 04:30 Lactic Acid 0.70 mmol/L (0.7-2.0) 10/31/21 15:45 Calcium 8.1 mg/dL (8.4-10.2) L 11/10/21 04:17 Phosphorus 3.00 mg/dL (2.5-4.5) 11/10/21 04:17 Magnesium 1.80 mg/dL (1.7-2.3) 11/10/21 04:17 Ferritin 208.4 ng/mL (10.0-200.0) H 10/30/21 Unknown Total Bilirubin < 0.20 mg/dL (0.1-1.2) 11/06/21 02:35 AST 21 units/L (5-40) 11/06/21 02:35 ALT 77 units/L (7-56) H 11/06/21 02:35 Alkaline Phosphatase 84 units/L (35-129) 11/06/21 02:35 Ammonia 31.0 umol/L (25-60) 10/29/21 15:10 Lactate Dehydrogenase 469 units/L (91-180) H 10/30/21 Unknown Troponin T 1.150 ng/mL (0.00-0.029) H* D 10/29/21 22:34 C-Reactive Protein 13.40 mg/dL (0.00-1.30) H 10/30/21 Unknown Total Protein 6.3 g/dL (6.3-8.2) 11/06/21 02:35 Albumin 3.0 g/dL (3.9-5) L 11/06/21 02:35 Albumin/Globulin Ratio 0.9 % 11/06/21 02:35 Triglycerides 68 mg/dL (2-149) 10/29/21 19:40 Cholesterol 98 mg/dL (50-199) 10/29/21 19:40 LDL Cholesterol Direct 43 mg/dL (50-130) L 10/29/21 19:40 HDL Cholesterol 50 mg/dL (40-59) 10/29/21 19:40 Cholesterol/HDL Ratio 1.96 % 10/29/21 19:40 Procalcitonin 61.95 ng/mL (<0.15) 10/30/21 Unknown TSH 3.080 mlU/mL (0.270-4.200) 10/29/21 15:10 Urine Color Straw (Yellow) 10/29/21 18:15 Urine Turbidity Clear (Clear) 10/29/21 18:15 Urine pH 7.0 (5.0-7.0) 10/29/21 18:15 Ur Specific [place] 1.018 (1.003-1.030) 10/29/21 18:15 Urine Protein 100 mg/dl mg/dL (Negative) 10/29/21 18:15 Urine Glucose (UA) 150 mg/dL (Negative) 10/29/21 18:15 Urine Ketones Neg mg/dL (Negative) 10/29/21 18:15 Urine Blood Mod (Negative) 10/29/21 18:15 Urine Nitrite Neg (Negative) 10/29/21 18:15 Urine Bilirubin Neg (Negative) 10/29/21 18:15 Urine Urobilinogen < 2.0 mg/dL (<2.0) 10/29/21 18:15 Ur Leukocyte Esterase Neg (Negative) 10/29/21 18:15 Urine WBC (Auto) 5.0 /HPF (0.0-6.0) 10/29/21 18:15 Urine RBC (Auto) 2.0 /HPF (0.0-6.0) 10/29/21 18:15 U Epithel Cells (Auto) < 1.0 /HPF (0-13.0) 10/29/21 18:15 Urine Mucus Few /HPF 10/29/21 18:15 Urine Eosinophils None seen (None Seen) 11/04/21 Unknown Urine Creatinine 190.9 mg/dL (0.1-20.0) H 11/04/21 Unknown Protein/Creatinin Ratio 0.90 11/04/21 Unknown Urine Sodium 10 mmol/L 11/04/21 Unknown Urine Total Protein 172 mg/dL (5-11.8) H 11/04/21 Unknown Salicylates < 0.3 mg/dL (2.8-20.0) L 10/29/21 15:10 Urine Opiates Screen Negative 10/29/21 18:15 Urine Methadone Screen Negative 10/29/21 18:15 Acetaminophen 5.0 ug/mL (10.0-30.0) L 10/29/21 15:10 Ur Barbiturates Screen Negative 10/29/21 18:15 Ur Phencyclidine Scrn Negative 10/29/21 18:15 Ur Amphetamines Screen Negative 10/29/21 18:15 U Benzodiazepines Scrn Negative 10/29/21 18:15 Urine Cocaine Screen Negative 10/29/21 18:15 U Marijuana (THC) Screen Negative 10/29/21 18:15 Drugs of Abuse Note Disclamer 10/29/21 18:15 Plasma/Serum Alcohol < 0.01 % (0-0.07) 10/29/21 15:10 Coronavirus (PCR) Negative (Negative) 10/30/21 Unknown Blood Type O POSITIVE 10/29/21 15:10 Antibody Screen Negative 10/29/21 15:10 Krishna/IV: Voiding Method Indwelling Catheter Active Medications - Current Medications Current Medications: Generic Name Dose Route Start Last Admin Trade Name Freq PRN Reason Stop Dose Admin Acetaminophen 650 mg 10/29/21 17:04 11/09/21 19:56 Acetaminophen 325 Mg Tab PO 650 mg Q6H PRN Administration Pain, Mild (1-3) Acetaminophen 650 mg 10/29/21 17:04 Acetaminophen 650 Mg Rect Supp FL Q6H PRN Pain MILD(1-3)/Fever >100.5/NIEVES Amiodarone HCl 200 mg 11/08/21 10:00 11/10/21 09:34 Amiodarone 200 Mg Tab PO 200 mg QDAY RAMON Administration Lipase/Protease/Amylase 1 each 10/31/21 08:56 Lipase 10,500/Protease 25,000/Amylase 43,750 (Units) Dr Ivory FEEDTUBE PRN PRN For Clogged Feeding Tube Dextrose 0 ml 11/04/21 13:48 11/05/21 15:29 Dextrose 10% *Hypoglycemia IV 250 ml PRN PRN Administration Hypoglycemia Famotidine 10 mg 11/06/21 10:00 11/10/21 09:33 Famotidine 10 Mg Tab PO 10 mg BID RAMON Administration Fentanyl 50 mcg 11/04/21 14:32 11/09/21 00:01 Fentanyl 100 Mcg/2 Ml Inj IV 50 mcg Q2H PRN Administration Pain, Moderate (4-6) Furosemide 40 mg 11/10/21 10:00 11/10/21 09:32 Furosemide 40 Mg Tab PO 40 mg QDAY RAMON Administration Heparin Sodium (Porcine) 4,300 unit 10/30/21 17:00 Heparin 10,000 Units/10 Ml Vial 40 unit/kg (4300 unit) IV Q6H PRN Anti-Xa Assay < 0.1 units/ml Hydralazine HCl 50 mg 11/09/21 14:00 11/10/21 06:43 Hydralazine 25 Mg Tab PO 50 mg Q8HR RAMON Administration Hydralazine HCl 10 mg 11/09/21 13:05 Hydralazine 20 Mg/1 Ml Inj IV Q4HR PRN Hypertension Hydrophilic Ointment 1 applic 10/29/21 14:29 11/09/21 08:51 Lip Therapy Vaseline TP 1 applic Q2HR PRN Administration Dry Lips NORepinephrine/NS 8 MG-250 ML 8 mg in 250 mls @ 3.75 mls/hr 10/29/21 15:00 11/04/21 07:00 Norepinephrine/Ns 8 Mg-250 Ml (Double Conc) IV 0 mcg/min TITRATE RAMON 0 mls/hr Titration Protocol 2 MCG/MIN Heparin Sodium/Sodium Chloride 25,000 unit in 500 mls @ 30 mls/hr 10/30/21 17:00 11/10/21 10:51 Heparin/ 0.45% Nacl-25,000 Unit/500 Ml IV 1,900 units/hr TITR RAMON 38 mls/hr Titration Protocol 1,500 UNITS/HR Dexmedetomidine HCl 200 mcg/ 50 mls @ 5.335 mls/hr 11/07/21 15:00 11/10/21 10:29 Sodium Chloride IV 1.1 mcg/kg/hr TITRATE RAMON 29.343 mls/hr Administration Protocol 0.2 MCG/KG/HR Insulin Glargine 15 units 11/08/21 22:00 11/09/21 21:00 Insulin Glargine 100 Units/Ml SUB-Q 15 units QHS RAMON Administration Insulin Human Lispro 0 unit 10/30/21 16:00 11/10/21 06:33 Insulin Lispro 100 Unit/Ml SUB-Q 4 unit Q6HR RAMON Administration Protocol Isosorbide Mononitrate 30 mg 11/08/21 10:00 11/10/21 09:32 Isosorbide Mononitrate Er 30 Mg Tab PO 30 mg QDAY RAMON Administration Metoprolol Tartrate 50 mg 11/07/21 12:00 11/10/21 06:45 Metoprolol Tartrate 50 Mg Tab FEEDTUBE 50 mg Q6H RAMON Administration Multi-Ingred Cream/Lotion/Oil/Oint 1 applic 10/29/21 14:29 11/06/21 09:25 Mineral Oil/Petrolatum, White Ophth Oint 3.5 Gm OU 1 applic Q4HR PRN Administration Dry Eye(s) Senna/Docusate Sodium 1 tab 10/29/21 15:00 11/09/21 21:01 Sennosides/Docusate Sodium 8.6/50 Mg Tab FEEDTUBE 1 tab BID RAMON Administration Simple Syrup 15 ml 10/31/21 08:56 Simple Syrup 15 Ml FEEDTUBE PRN PRN Hypoglycemia Simple Syrup 30 ml 10/31/21 08:56 Simple Syrup 15 Ml FEEDTUBE PRN PRN Hypoglycemia Sodium Bicarbonate 325 mg 10/31/21 08:56 Sodium Bicarbonate 325 Mg Tab FEEDTUBE PRN PRN For Clogged Feeding Tube Sodium Chloride 10 ml 10/29/21 22:00 11/10/21 09:34 Sodium Chloride 0.9% 10 Ml Flush Syringe IV 10 ml BID RAMON Administration Sodium Chloride 10 ml 10/29/21 17:04 Sodium Chloride 0.9% 10 Ml Flush Syringe IV PRN PRN LINE FLUSH Spironolactone 25 mg 11/10/21 10:00 11/10/21 09:33 Spironolactone 25 Mg Tab PO 25 mg QDAY RAMON Administration Nutrition/Malnutrition Assess - Dietary Evaluation Nutrition/Malnutrition Findings: Nutrition Notes Start: 10/30/21 09 :50 Freq: Status: Active Protocol: Document 11/08/21 09:54 MEENU (Rec: 11/08/21 10:20 MEEUN [id number]) Nutrition Notes Initial or Follow up Reassessment Current Diagnosis Acute Kidney Injury,Sepsis, Heart Failure,Respiratory Failure Other Pertinent Diagnosis SIERRA/ATN, s/p Cardiac Arrest, DVT, Anemia, Hyperkalemia. Current Diet TF-Nepro w/CARBSTEADY @ 37 ml/ hr (since D 11/06). Labs/Tests 11/08: Na 151, K 3.1, Cl 107.3 , CO2 31, BUN 82, Crea 1.8, Glu 232, Ca 8.1. Pertinent Medications 11/08: Insulin, others nutritionally unremarkable. Height 5 ft 10 in Weight 106.7 kg [place] Body Weight (kg) 68.18 BMI 33.7 Weight change and time frame No body weight change reported in 1 week. Weight Status Obese Subjective/Other Information RD consult for routine F/U on TF tolerance. TF continues as prescribed and well tolerated, according to RN over the phone. Pt continues on Mechanical ventilation. Percent of energy/protein needs met: Prescribed Nepro w/CARBSTEADY @ 37 ml/hr provides for energy /protein needs (1,598 Kcal/72 g) during LOS, 100% Kcal; 100% AA. Burn Absent Trauma Absent GI Symptoms None Food Allergy No Skin Integrity/Comment Clear, warm, dry. Current % PO Other Minimum of two criteria No #1 Nutrition Diagnosis Inadequate oral intake Diagnosis Progress(for reassessment Continues documentation) Is patient on ventilator? Yes Is Patient Ambulatory and/or Out of Bed No REE-([facility]-confined to bed) 2022.848 Kcal/Kg value to use for calculation 15 Approximate Energy Requirements Using 1601 kcal/Kg Calculation Used for Recommendations Kcal/kg Additional Notes Protein: 0.8-1.2 g/Kg IBW; 70- 105 g/day. Fluids: 1 ml/Kcal, or as per MD. Nutrition Intervention Nutrition Support: Continue Nepro w/CARBSTEADY @ 37 ml/hr. Flush: 160 ml water Q 4 hr, or as per MD. Kcal 1,598 Protein (gm) 72 Carbohydrates (gm) 143 Fat (gm) 85 Fluid (mL) 646 Fiber (gm) 11 % RDI: 100% Kcal; 100% AA. Goal #1 Provide at least 75% of energy /protein needs through Enteral Feeding during LOS. Goal #2 Maintain body weight within +/ -3% of admission body weight during LOS. Follow-Up By: 11/15/21 Additional Comments Continue monitoring TF tolerance and BM. <ABRAM DIAS - Last Filed: 11/11/21 07:20> Assessment and Plan Assessment and plan: I saw and evaluated the patient. I agree with the findings and the plan of care as documented in the Nurse Practitioner's~note, with the following corrections and additions. Hospitalist Physical - Constitutional Vitals: Temp Pulse Resp BP Pulse Ox 99.3 F 69 16 107/71 100 11/11/21 03:24 11/11/21 07:16 11/11/21 05:30 11/11/21 07:16 11/11/21 07:16 HEART Score - HEART Score Troponin: Troponin T 1.150 ng/mL (0.00-0.029) H* D 10/29/21 22:34 Results - Labs CBC & Chem 7: 11/11/21 03:49 11/11/21 03:49 Labs: Laboratory Last Values WBC 22.1 K/mm3 (4.5-11.0) H 11/11/21 03:49 RBC 2.69 M/mm3 (3.65-5.03) L 11/11/21 03:49 Hgb 7.2 gm/dl (10.1-14.3) L 11/11/21 03:49 Hct 22.7 % (30.3-42.9) L 11/11/21 03:49 MCV 85 fl (79-97) 11/11/21 03:49 MCH 27 pg (28-32) L 11/11/21 03:49 MCHC 32 % (30-34) 11/11/21 03:49 RDW 15.2 % (13.2-15.2) 11/11/21 03:49 Plt Count 241 K/mm3 (140-440) 11/11/21 03:49 Lymph % (Auto) 6.2 % (13.4-35.0) L 10/30/21 04:30 Falls % (Auto) 5.5 % (0.0-7.3) 10/30/21 04:30 Eos % (Auto) 0.1 % (0.0-4.3) 10/30/21 04:30 Baso % (Auto) 0.1 % (0.0-1.8) 10/30/21 04:30 Lymph # (Auto) 1.0 K/mm3 (1.2-5.4) L 10/30/21 04:30 Falls # (Auto) 0.9 K/mm3 (0.0-0.8) H 10/30/21 04:30 Eos # (Auto) 0.0 K/mm3 (0.0-0.4) 10/30/21 04:30 Baso # (Auto) 0.0 K/mm3 (0.0-0.1) 10/30/21 04:30 Add Manual Diff Complete 11/07/21 06:30 Total Counted 100 11/07/21 06:30 Seg Neutrophils % 88.1 % (40.0-70.0) H 10/30/21 04:30 Seg Neuts % (Manual) 77.0 % (40.0-70.0) H 11/07/21 06:30 Band Neutrophils % 1.0 % 11/07/21 06:30 Lymphocytes % (Manual) 11.0 % (13.4-35.0) L 11/07/21 06:30 Reactive Lymphs % (Man) 3.0 % 11/07/21 06:30 Monocytes % (Manual) 2.0 % (0.0-7.3) 11/07/21 06:30 Eosinophils % (Manual) 0 % (0.0-4.3) 11/07/21 06:30 Basophils % (Manual) 0 % (0.0-1.8) 11/07/21 06:30 Metamyelocytes % 1.0 % 11/07/21 06:30 Myelocytes % 5.0 % 11/07/21 06:30 Promyelocytes % 0 % 11/07/21 06:30 Blast Cells % 0 % 11/07/21 06:30 Nucleated RBC % 2.0 % (0.0-0.9) H 11/07/21 06:30 Seg Neutrophils # 14.2 K/mm3 (1.8-7.7) H 10/30/21 04:30 Seg Neutrophils # Man 12.3 K/mm3 (1.8-7.7) H 11/07/21 06:30 Band Neutrophils # 0.2 K/mm3 11/07/21 06:30 Lymphocytes # (Manual) 1.8 K/mm3 (1.2-5.4) 11/07/21 06:30 Abs React Lymphs (Man) 0.5 K/mm3 11/07/21 06:30 Monocytes # (Manual) 0.3 K/mm3 (0.0-0.8) 11/07/21 06:30 Eosinophils # (Manual) 0.0 K/mm3 (0.0-0.4) 11/07/21 06:30 Basophils # (Manual) 0.0 K/mm3 (0.0-0.1) 11/07/21 06:30 Metamyelocytes # 0.2 K/mm3 11/07/21 06:30 Myelocytes # 0.8 K/mm3 11/07/21 06:30 Promyelocytes # 0.0 K/mm3 11/07/21 06:30 Blast Cells # 0.0 K/mm3 11/07/21 06:30 WBC Morphology Not Reportable 11/07/21 06:30 Hypersegmented Neuts Not Reportable 11/07/21 06:30 Hyposegmented Neuts Not Reportable 11/07/21 06:30 Hypogranular Neuts Not Reportable 11/07/21 06:30 Smudge Cells Not Reportable 11/07/21 06:30 Toxic Granulation Not Reportable 11/07/21 06:30 Toxic Vacuolation Not Reportable 11/07/21 06:30 Dohle Bodies Not Reportable 11/07/21 06:30 Pelger-Huet Anomaly Not Reportable 11/07/21 06:30 Manny Rods Not Reportable 11/07/21 06:30 Platelet Estimate Consistent w auto 11/07/21 06:30 Clumped Platelets Not Reportable 11/07/21 06:30 Plt Clumps, EDTA Not Reportable 11/07/21 06:30 Large Platelets 1+ 11/07/21 06:30 Giant Platelets Not Reportable 11/07/21 06:30 Platelet Satelliting Not Reportable 11/07/21 06:30 Plt Morphology Comment Not Reportable 11/07/21 06:30 RBC Morphology Not Reportable 11/07/21 06:30 Dimorphic RBCs Not Reportable 11/07/21 06:30 Polychromasia Not Reportable 11/07/21 06:30 Hypochromasia 1+ 11/07/21 06:30 Poikilocytosis Not Reportable 11/07/21 06:30 Anisocytosis Not Reportable 11/07/21 06:30 Microcytosis Not Reportable 11/07/21 06:30 Macrocytosis Not Reportable 11/07/21 06:30 Spherocytes 1+ 11/07/21 06:30 Pappenheimer Bodies Not Reportable 11/07/21 06:30 Sickle Cells Not Reportable 11/07/21 06:30 Target Cells 1+ 11/07/21 06:30 Tear Drop Cells Not Reportable 11/07/21 06:30 Ovalocytes Not Reportable 11/07/21 06:30 Helmet Cells Not Reportable 11/07/21 06:30 [place] Bodies Not Reportable 11/07/21 06:30 [place] Rings Not Reportable 11/07/21 06:30 [place] Cells Not Reportable 11/07/21 06:30 Bite Cells Not Reportable 11/07/21 06:30 Crenated Cell Not Reportable 11/07/21 06:30 Elliptocytes Not Reportable 11/07/21 06:30 Acanthocytes (Spur) Not Reportable 11/07/21 06:30 Rouleaux Not Reportable 11/07/21 06:30 Hemoglobin C Crystals Not Reportable 11/07/21 06:30 Schistocytes Not Reportable 11/07/21 06:30 Malaria parasites Not Reportable 11/07/21 06:30 Magdy Bodies Not Reportable 11/07/21 06:30 Hem Pathologist Commnt No 11/07/21 06:30 PT 17.2 Sec. (12.2-14.9) H 10/30/21 16:30 INR 1.27 (0.87-1.13) H 10/30/21 16:30 APTT 44.4 Sec. (24.2-36.6) H 10/30/21 16:30 D-Dimer > 07428 ng/mlDDU (0-234) H 10/30/21 Unknown Heparin Anti-Xa Level 0.43 U.I./ml (0.3-0.7) 11/10/21 18:15 ABG pH 7.447 pH Units (7.350-7.450) 11/09/21 08:45 ABG pCO2 50.0 mm Hg 11/09/21 08:45 ABG pO2 73.2 mm Hg (80.0-90.0) L 11/09/21 08:45 ABG HCO3 33.8 mmol/L (20.0-26.0) H 11/09/21 08:45 ABG O2 Saturation 96.0 % (95.0-99.0) 11/09/21 08:45 ABG O2 Content 11.3 (0.0-44) 11/09/21 08:45 ABG Base Excess 8.7 mmol/L (-2.0-3.0) H 11/09/21 08:45 ABG Hemoglobin 8.5 gm/dl (12.0-16.0) L 11/09/21 08:45 ABG Carboxyhemoglobin 1.5 % (0.0-5.0) 11/09/21 08:45 ABG Methemoglobin 0.5 % (0.0-1.5) 11/09/21 08:45 Oxyhemoglobin 94.1 % (95.0-99.0) L 11/09/21 08:45 FiO2 35 % 11/09/21 08:45 Sodium 145 mmol/L (137-145) 11/11/21 03:49 Potassium 3.8 mmol/L (3.6-5.0) 11/11/21 03:49 Chloride 106.3 mmol/L (98-107) 11/11/21 03:49 Carbon Dioxide 32 mmol/L (22-30) H 11/11/21 03:49 Anion Gap 11 mmol/L 11/11/21 03:49 BUN 44 mg/dL (7-17) H 11/11/21 03:49 Creatinine 1.3 mg/dL (0.6-1.2) H 11/11/21 03:49 Estimated GFR 49 ml/min 11/11/21 03:49 BUN/Creatinine Ratio 34 % 11/11/21 03:49 Glucose 173 mg/dL (65-100) H 11/11/21 03:49 POC Glucose 152 mg/dL (70-105) H 11/11/21 05:03 Hemoglobin A1c 6.7 % (4-6) H 10/31/21 04:30 Lactic Acid 0.70 mmol/L (0.7-2.0) 10/31/21 15:45 Calcium 8.5 mg/dL (8.4-10.2) 11/11/21 03:49 Phosphorus 3.60 mg/dL (2.5-4.5) 11/11/21 03:49 Magnesium 2.20 mg/dL (1.7-2.3) 11/11/21 03:49 Ferritin 208.4 ng/mL (10.0-200.0) H 10/30/21 Unknown Total Bilirubin < 0.20 mg/dL (0.1-1.2) 11/06/21 02:35 AST 21 units/L (5-40) 11/06/21 02:35 ALT 77 units/L (7-56) H 11/06/21 02:35 Alkaline Phosphatase 84 units/L (35-129) 11/06/21 02:35 Ammonia 31.0 umol/L (25-60) 10/29/21 15:10 Lactate Dehydrogenase 469 units/L (91-180) H 10/30/21 Unknown Troponin T 1.150 ng/mL (0.00-0.029) H* D 10/29/21 22:34 C-Reactive Protein 13.40 mg/dL (0.00-1.30) H 10/30/21 Unknown Total Protein 6.3 g/dL (6.3-8.2) 11/06/21 02:35 Albumin 3.0 g/dL (3.9-5) L 11/06/21 02:35 Albumin/Globulin Ratio 0.9 % 11/06/21 02:35 Triglycerides 68 mg/dL (2-149) 10/29/21 19:40 Cholesterol 98 mg/dL (50-199) 10/29/21 19:40 LDL Cholesterol Direct 43 mg/dL (50-130) L 10/29/21 19:40 HDL Cholesterol 50 mg/dL (40-59) 10/29/21 19:40 Cholesterol/HDL Ratio 1.96 % 10/29/21 19:40 Procalcitonin 61.95 ng/mL (<0.15) 10/30/21 Unknown TSH 3.080 mlU/mL (0.270-4.200) 10/29/21 15:10 Urine Color Straw (Yellow) 10/29/21 18:15 Urine Turbidity Clear (Clear) 10/29/21 18:15 Urine pH 7.0 (5.0-7.0) 10/29/21 18:15 Ur Specific [place] 1.018 (1.003-1.030) 10/29/21 18:15 Urine Protein 100 mg/dl mg/dL (Negative) 10/29/21 18:15 Urine Glucose (UA) 150 mg/dL (Negative) 10/29/21 18:15 Urine Ketones Neg mg/dL (Negative) 10/29/21 18:15 Urine Blood Mod (Negative) 10/29/21 18:15 Urine Nitrite Neg (Negative) 10/29/21 18:15 Urine Bilirubin Neg (Negative) 10/29/21 18:15 Urine Urobilinogen < 2.0 mg/dL (<2.0) 10/29/21 18:15 Ur Leukocyte Esterase Neg (Negative) 10/29/21 18:15 Urine WBC (Auto) 5.0 /HPF (0.0-6.0) 10/29/21 18:15 Urine RBC (Auto) 2.0 /HPF (0.0-6.0) 10/29/21 18:15 U Epithel Cells (Auto) < 1.0 /HPF (0-13.0) 10/29/21 18:15 Urine Mucus Few /HPF 10/29/21 18:15 Urine Eosinophils None seen (None Seen) 11/04/21 Unknown Urine Creatinine 190.9 mg/dL (0.1-20.0) H 11/04/21 Unknown Protein/Creatinin Ratio 0.90 11/04/21 Unknown Urine Sodium 10 mmol/L 11/04/21 Unknown Urine Total Protein 172 mg/dL (5-11.8) H 11/04/21 Unknown Salicylates < 0.3 mg/dL (2.8-20.0) L 10/29/21 15:10 Urine Opiates Screen Negative 10/29/21 18:15 Urine Methadone Screen Negative 10/29/21 18:15 Acetaminophen 5.0 ug/mL (10.0-30.0) L 10/29/21 15:10 Ur Barbiturates Screen Negative 10/29/21 18:15 Ur Phencyclidine Scrn Negative 10/29/21 18:15 Ur Amphetamines Screen Negative 10/29/21 18:15 U Benzodiazepines Scrn Negative 10/29/21 18:15 Urine Cocaine Screen Negative 10/29/21 18:15 U Marijuana (THC) Screen Negative 10/29/21 18:15 Drugs of Abuse Note Disclamer 10/29/21 18:15 Plasma/Serum Alcohol < 0.01 % (0-0.07) 10/29/21 15:10 Coronavirus (PCR) Negative (Negative) 10/30/21 Unknown Blood Type O POSITIVE 10/29/21 15:10 Antibody Screen Negative 10/29/21 15:10 Microbiology: Microbiology 11/10/21 11:12 Tracheal Aspirate Sputum Culture - Preliminary Krishna/IV: Voiding Method Indwelling Catheter Active Medications - Current Medications Current Medications: Generic Name Dose Route Start Last Admin Trade Name Freq PRN Reason Stop Dose Admin Acetaminophen 650 mg 10/29/21 17:04 11/10/21 21:03 Acetaminophen 325 Mg Tab PO 650 mg Q6H PRN Administration Pain, Mild (1-3) Acetaminophen 650 mg 10/29/21 17:04 Acetaminophen 650 Mg Rect Supp [place] Q6H PRN Pain MILD(1-3)/Fever >100.5/NIEVES Amiodarone HCl 200 mg 11/08/21 10:00 11/10/21 09:34 Amiodarone 200 Mg Tab PO 200 mg QDAY RAMON Administration Lipase/Protease/Amylase 1 each 10/31/21 08:56 Lipase 10,500/Protease 25,000/Amylase 43,750 (Units) Dr Ivory FEEDTUBE PRN PRN For Clogged Feeding Tube Dextrose 0 ml 11/04/21 13:48 11/05/21 15:29 Dextrose 10% *Hypoglycemia IV 250 ml PRN PRN Administration Hypoglycemia Famotidine 10 mg 11/06/21 10:00 11/10/21 21:12 Famotidine 10 Mg Tab PO 10 mg BID RAMON Administration Fentanyl 50 mcg 11/04/21 14:32 11/09/21 00:01 Fentanyl 100 Mcg/2 Ml Inj IV 50 mcg Q2H PRN Administration Pain, Moderate (4-6) Furosemide 40 mg 11/10/21 10:00 11/10/21 09:32 Furosemide 40 Mg Tab PO 40 mg QDAY RAMON Administration Heparin Sodium (Porcine) 4,300 unit 10/30/21 17:00 Heparin 10,000 Units/10 Ml Vial 40 unit/kg (4300 unit) IV Q6H PRN Anti-Xa Assay < 0.1 units/ml Hydralazine HCl 50 mg 11/09/21 14:00 11/10/21 21:12 Hydralazine 25 Mg Tab PO 50 mg Q8HR RAMON Administration Hydralazine HCl 10 mg 11/09/21 13:05 Hydralazine 20 Mg/1 Ml Inj IV Q4HR PRN Hypertension Hydrophilic Ointment 1 applic 10/29/21 14:29 11/09/21 08:51 Lip Therapy Vaseline TP 1 applic Q2HR PRN Administration Dry Lips NORepinephrine/NS 8 MG-250 ML 8 mg in 250 mls @ 3.75 mls/hr 10/29/21 15:00 11/04/21 07:00 Norepinephrine/Ns 8 Mg-250 Ml (Double Conc) IV 0 mcg/min TITRATE RAMON 0 mls/hr Titration Protocol 2 MCG/MIN Heparin Sodium/Sodium Chloride 25,000 unit in 500 mls @ 30 mls/hr 10/30/21 17:00 11/11/21 01:10 Heparin/ 0.45% Nacl-25,000 Unit/500 Ml IV 1,900 units/hr TITR RAMON 38 mls/hr Administration Protocol 1,500 UNITS/HR Dexmedetomidine HCl 200 mcg/ 50 mls @ 5.335 mls/hr 11/07/21 15:00 11/11/21 0 5:41 Sodium Chloride IV 0.9 mcg/kg/hr TITRATE RAMON 24.008 mls/hr Administration Protocol 0.2 MCG/KG/HR Insulin Glargine 20 units 11/10/21 22:00 11/10/21 21:10 Insulin Glargine 100 Units/Ml SUB-Q 20 units QHS RAMON Administration Insulin Human Lispro 0 unit 10/30/21 16:00 11/11/21 00:33 Insulin Lispro 100 Unit/Ml SUB-Q Not Given Q6HR [facility] Protocol Isosorbide Mononitrate 30 mg 11/08/21 10:00 11/10/21 09:32 Isosorbide Mononitrate Er 30 Mg Tab PO 30 mg QDAY RAMON Administration Metoprolol Tartrate 50 mg 11/07/21 12:00 11/11/21 00:43 Metoprolol Tartrate 50 Mg Tab FEEDTUBE 50 mg Q6H RAMON Administration Multi-Ingred Cream/Lotion/Oil/Oint 1 applic 10/29/21 14:29 11/06/21 09:25 Mineral Oil/Petrolatum, White Ophth Oint 3.5 Gm OU 1 applic Q4HR PRN Administration Dry Eye(s) Potassium Chloride 40 meq 11/10/21 22:00 11/10/21 21:08 Potassium Chloride 20 Meq Packet FEEDTUBE 11/11/21 22:01 40 meq BID RAMON Administration Senna/Docusate Sodium 1 tab 10/29/21 15:00 11/10/21 21:15 Sennosides/Docusate Sodium 8.6/50 Mg Tab FEEDTUBE 1 tab BID RAMON Administration Simple Syrup 15 ml 10/31/21 08:56 Simple Syrup 15 Ml FEEDTUBE PRN PRN Hypoglycemia Simple Syrup 30 ml 10/31/21 08:56 Simple Syrup 15 Ml FEEDTUBE PRN PRN Hypoglycemia Sodium Bicarbonate 325 mg 10/31/21 08:56 Sodium Bicarbonate 325 Mg Tab FEEDTUBE PRN PRN For Clogged Feeding Tube Sodium Chloride 10 ml 10/29/21 22:00 11/10/21 21:14 Sodium Chloride 0.9% 10 Ml Flush Syringe IV 10 ml BID RAMON Administration Sodium Chloride 10 ml 10/29/21 17:04 Sodium Chloride 0.9% 10 Ml Flush Syringe IV PRN PRN LINE FLUSH Spironolactone 25 mg 11/10/21 10:00 11/10/21 09:33 Spironolactone 25 Mg Tab PO 25 mg QDAY RAMON Administration Nutrition/Malnutrition Assess - Dietary Evaluation Nutrition/Malnutrition Findings: Nutrition Notes Start: 10/30/21 09:50 Freq: Status: Active Protocol: Document 11/08/21 09:54 MEENU (Rec: 11/08/21 10:20 MEENU [id number]) Nutrition Notes Initial or Follow up Reassessment Current Diagnosis Acute Kidney Injury,Sepsis, Heart Failure,Respiratory Failure Other Pertinent Diagnosis SIERRA/ATN, s/p Cardiac Arrest, DVT, Anemia, Hyperkalemia. Current Diet TF-Nepro w/CARBSTEADY @ 37 ml/ hr (since D 11/06). Labs/Tests 11/08: Na 151, K 3.1, Cl 107.3 , CO2 31, BUN 82, Crea 1.8, Glu 232, Ca 8.1. Pertinent Medications 11/08: Insulin, others nutritionally unremarkable. Height 5 ft 10 in Weight 106.7 kg [place] Body Weight (kg) 68.18 BMI 33.7 Weight change and time frame No body weight change reported in 1 week. Weight Status Obese Subjective/Other Information RD consult for routine F/U on TF tolerance. TF continues as prescribed and well tolerated, according to RN over the phone. Pt continues on Mechanical ventilation. Percent of energy/protein needs met: Prescribed Nepro w/CARBSTEADY @ 37 ml/hr provides for energy /protein needs (1,598 Kcal/72 g) during LOS, 100% Kcal; 100% AA. Burn Absent Trauma Absent GI Symptoms None Food Allergy No Skin Integrity/Comment Clear, warm, dry. Current % PO Other Minimum of two criteria No #1 Nutrition Diagnosis Inadequate oral intake Diagnosis Progress(for reassessment Continues documentation) Is patient on ventilator? Yes Is Patient Ambulatory and/or Out of Bed No REE-([facility]-confined to bed) 2022.848 Kcal/Kg value to use for calculation 15 Approximate Energy Requirements Using 1601 kcal/Kg Calculation Used for Recommendations Kcal/kg Additional Notes Protein: 0.8-1.2 g/Kg IBW; 70- 105 g/day. Fluids: 1 ml/Kcal, or as per MD. Nutrition Intervention Nutrition Support: Continue Nepro w/CARBSTEADY @ 37 ml/hr. Flush: 160 ml water Q 4 hr, or as per MD. Kcal 1,598 Protein (gm) 72 Carbohydrates (gm) 143 Fat (gm) 85 Fluid (mL) 646 Fiber (gm) 11 % RDI: 100% Kcal; 100% AA. Goal #1 Provide at least 75% of energy /protein needs through Enteral Feeding during LOS. Goal #2 Maintain body weight within +/ -3% of admission body weight during LOS. Follow-Up By: 11/15/21 Additional Comments Continue monitoring TF tolerance and BM.
[2021-11-10] MEDS: HEPARIN/ 0.45% NACL DRIP 25,000 UNIT/500 ML BAG IV SCH (12:41)
--- NOTE | 2021-11-10 13:12 | Progress Note ---
Assessment and Plan Assessment: Acute Renal Failure secondary to Ischemic ATN secondary to Sepsis, Cardiac arrest and Hypotension S/P Cardiac Arrest Acute Hypoxemic Respiratory Failure Acute DVT Sepsis CHF Anemia Hyperkalemia Plan: Renal labs reviewed. Serum creatinine slightly down monitor. Na better. s/p D5W. Replace K ARF likely secondary to Ischemic ATN LVEF 25-30 % Renal US shows CKD signs, no hydronephrosis Ordered urine lytes, protein and eosinophils DVT-on Heparin drip Intubated on Vent, Per ICU Strict I/O's daily Renally dose medications Avoid nephratoxic agents No acute indication for [employer] Will monitor renal function closely Subjective Date of service: 11/10/21 Principal diagnosis: AHRF; Cardiac arrest; R. pneumothorax; pneumonia; AMS; DVT's; SIERRA; Obesity Interval history: Intubated on Vent. In ICU. Making urine. Objective - Exam Narrative Exam: - General Appearance General appearance: sedated on ventilator, intubated EENT: ATNC, other (Blinks eyes) Respiratory: Decreased Breath Sounds, Other (Intubated) Heart: S1S2 Gastrointestinal: Present: normoactive bowel sounds, other (NG tube) Integumentary: no rash, warm and dry Neurologic: other (Intubated, blinks eyes) Musculoskeletal: Present: other (mild edema to BLE) - Vital Signs Vital signs: Vital Signs - 12hr 11/10/21 11/10/21 11/10/21 01:30 02:00 02:30 Temperature Pulse Rate 70 71 71 Pulse Rate [ 76 From Monitor] Respiratory 15 18 24 Rate Blood Pressure 150/73 154/74 150/71 O2 Sat by Pulse 97 97 93 Oximetry 11/10/21 11/10/21 11/10/21 03:00 03:30 03:51 Temperature 100 F H Pulse Rate 72 68 Pulse Rate [ From Monitor] Respiratory 15 19 Rate Blood Pressure 160/77 144/68 O2 Sat by Pulse 97 97 Oximetry 11/10/21 11/10/21 11/10/21 04:00 04:30 05:00 Temperature 100 F H Pulse Rate 71 74 76 Pulse Rate [ From Monitor] Respiratory 22 21 25 H Rate Blood Pressure 155/68 161/86 169/81 O2 Sat by Pulse 98 98 98 Oximetry 11/10/21 11/10/21 11/10/21 05:31 06:00 06:30 Temperature Pulse Rate 73 75 73 Pulse Rate [ 71 From Monitor] Respiratory 15 17 22 Rate Blood Pressure 179/79 179/88 160/82 O2 Sat by Pulse 95 97 Oximetry 11/10/21 11/10/21 11/10/21 06:43 06:44 06:45 Temperature Pulse Rate 71 75 71 Pulse Rate [ From Monitor] Respiratory Rate Blood Pressure 160/72 132/87 160/82 O2 Sat by Pulse Oximetry 11/10/21 11/10/21 11/10/21 07:00 07:08 07:31 Temperature Pulse Rate 71 72 73 Pulse Rate [ From Monitor] Respiratory 21 16 Rate Blood Pressure 164/83 164/83 152/80 O2 Sat by Pulse 97 100 99 Oximetry 11/10/21 11/10/21 11/10/21 07:45 08:00 08:30 Temperature 100.4 F H 100 F H Pulse Rate 72 71 Pulse Rate [ From Monitor] Respiratory 22 23 Rate Blood Pressure 149/83 134/77 O2 Sat by Pulse 97 99 Oximetry 11/10/21 11/10/21 11/10/21 09:00 09:30 09:32 Temperature Pulse Rate 72 69 70 Pulse Rate [ From Monitor] Respiratory 24 17 Rate Blood Pressure 135/73 123/66 123/68 O2 Sat by Pulse 99 98 Oximetry 11/10/21 11/10/21 11/10/21 10:00 10:30 11:00 Temperature Pulse Rate 72 75 73 Pulse Rate [ 71 From Monitor] Respiratory 22 31 H 28 H Rate Blood Pressure 125/65 132/69 140/72 O2 Sat by Pulse 98 96 94 Oximetry 11/10/21 11/10/21 11/10/21 11:06 11:30 11:35 Temperature 100.0 F H Pulse Rate 77 71 Pulse Rate [ From Monitor] Respiratory 26 H 26 H Rate Blood Pressure 140/72 135/67 O2 Sat by Pulse 98 97 Oximetry 11/10/21 11/10/21 11/10/21 12:00 12:30 13:00 Temperature 100.4 F H Pulse Rate 78 77 74 Pulse Rate [ From Monitor] Respiratory 30 H 33 H 36 H Rate Blood Pressure 134/73 155/81 153/80 O2 Sat by Pulse 96 96 96 Oximetry - Lab 11/10/21 04:17 11/10/21 04:17 Most recent lab results ABG pH 7.447 pH Units (7.350-7.450) 11/09/21 08:45 ABG pCO2 50.0 mm Hg 11/09/21 08:45 ABG pO2 73.2 mm Hg (80.0-90.0) L 11/09/21 08:45 ABG HCO3 33.8 mmol/L (20.0-26.0) H 11/09/21 08:45 ABG O2 Saturation 96.0 % (95.0-99.0) 11/09/21 08:45 Calcium 8.1 mg/dL (8.4-10.2) L 11/10/21 04:17 Phosphorus 3.00 mg/dL (2.5-4.5) 11/10/21 04:17 Magnesium 1.80 mg/dL (1.7-2.3) 11/10/21 04:17 Urine Creatinine 190.9 mg/dL (0.1-20.0) H 11/04/21 Unknown Urine Sodium 10 mmol/L 11/04/21 Unknown Urine Total Protein 172 mg/dL (5-11.8) H 11/04/21 Unknown Medications & Allergies - Medications Allergies/Adverse Reactions: Allergies No Known Allergies Allergy (Verified 10/29/21 14:01) Active Medications: Generic Name Dose Route Start Last Admin Trade Name Freq PRN Reason Stop Dose Admin Acetaminophen 650 mg 10/29/21 17:04 11/09/21 19:56 Acetaminophen 325 Mg Tab PO 650 mg Q6H PRN Administration Pain, Mild (1-3) Acetaminophen 650 mg 10/29/21 17:04 Acetaminophen 650 Mg Rect Supp [place] Q6H PRN Pain MILD(1-3)/Fever >100.5/NIEVES Amiodarone HCl 200 mg 11/08/21 10:00 11/10/21 09:34 Amiodarone 200 Mg Tab PO 200 mg QDAY RAMON Administration Lipase/Protease/Amylase 1 each 10/31/21 08:56 Lipase 10,500/Protease 25,000/Amylase 43,750 (Units) Dr Ivory FEEDTUBE PRN PRN For Clogged Feeding Tube Dextrose 0 ml 11/04/21 13:48 11/05/21 15:29 Dextrose 10% *Hypoglycemia IV 250 ml PRN PRN Administration Hypoglycemia Famotidine 10 mg 11/06/21 10:00 11/10/21 09:33 Famotidine 10 Mg Tab PO 10 mg BID RAMON Administration Fentanyl 50 mcg 11/04/21 14:32 11/09/21 00:01 Fentanyl 100 Mcg/2 Ml Inj IV 50 mcg Q2H PRN Administration Pain, Moderate (4-6) Furosemide 40 mg 11/10/21 10:00 11/10/21 09:32 Furosemide 40 Mg Tab PO 40 mg QDAY RAMON Administration Heparin Sodium (Porcine) 4,300 unit 10/30/21 17:00 Heparin 10,000 Units/10 Ml Vial 40 unit/kg (4300 unit) IV Q6H PRN Anti-Xa Assay < 0.1 units/ml Hydralazine HCl 50 mg 11/09/21 14:00 11/10/21 06:43 Hydralazine 25 Mg Tab PO 50 mg Q8HR RAMON Administration Hydralazine HCl 10 mg 11/09/21 13:05 Hydralazine 20 Mg/1 Ml Inj IV Q4HR PRN Hypertension Hydrophilic Ointment 1 applic 10/29/21 14:29 11/09/21 08:51 Lip Therapy Vaseline TP 1 applic Q2HR PRN Administration Dry Lips NORepinephrine/NS 8 MG-250 ML 8 mg in 250 mls @ 3.75 mls/hr 10/29/21 15:00 11/04/21 07:00 Norepinephrine/Ns 8 Mg-250 Ml (Double Conc) IV 0 mcg/min TITRATE RAMON 0 mls/hr Titration Protocol 2 MCG/MIN Heparin Sodium/Sodium Chloride 25,000 unit in 500 mls @ 30 mls/hr 10/30/21 17:00 11/10/21 12:41 Heparin/ 0.45% Nacl-25,000 Unit/500 Ml IV 1,900 units/hr TITR RAMON 38 mls/hr Administration Protocol 1,500 UNITS/HR Dexmedetomidine HCl 200 mcg/ 50 mls @ 5.335 mls/hr 11/07/21 15:00 11/10/21 12:19 Sodium Chloride IV 1.1 mcg/kg/hr TITRATE RAMON 29.343 mls/hr Administration Protocol 0.2 MCG/KG/HR Insulin Glargine 20 units 11/10/21 22:00 Insulin Glargine 100 Units/Ml SUB-Q QHS RAMON Insulin Human Lispro 0 unit 10/30/21 16:00 11/10/21 12:19 Insulin Lispro 100 Unit/Ml SUB-Q 3 unit Q6HR RAMON Administration Protocol Isosorbide Mononitrate 30 mg 11/08/21 10:00 11/10/21 09:32 Isosorbide Mononitrate Er 30 Mg Tab PO 30 mg QDAY RAMON Administration Metoprolol Tartrate 50 mg 11/07/21 12:00 11/10/21 12:19 Metoprolol Tartrate 50 Mg Tab FEEDTUBE 50 mg Q6H RAMON Administration Multi-Ingred Cream/Lotion/Oil/Oint 1 applic 10/29/21 14:29 11/06/21 09:25 Mineral Oil/Petrolatum, White Ophth Oint 3.5 Gm OU 1 applic Q4HR PRN Administration Dry Eye(s) Potassium Chloride 40 meq 11/10/21 22:00 Potassium Chloride 20 Meq Packet FEEDTUBE 11/11/21 22:01 BID RAMON Senna/Docusate Sodium 1 tab 10/29/21 15:00 11/09/21 21:01 Sennosides/Docusate Sodium 8.6/50 Mg Tab FEEDTUBE 1 tab BID RAMON Administration Simple Syrup 15 ml 10/31/21 08:56 Simple Syrup 15 Ml FEEDTUBE PRN PRN Hypoglycemia Simple Syrup 30 ml 10/31/21 08:56 Simple Syrup 15 Ml FEEDTUBE PRN PRN Hypoglycemia Sodium Bicarbonate 325 mg 10/31/21 08:56 Sodium Bicarbonate 325 Mg Tab FEEDTUBE PRN PRN For Clogged Feeding Tube Sodium Chloride 10 ml 10/29/21 22:00 11/10/21 09:34 Sodium Chloride 0.9% 10 Ml Flush Syringe IV 10 ml BID RAMON Administration Sodium Chloride 10 ml 10/29/21 17:04 Sodium Chloride 0.9% 10 Ml Flush Syringe IV PRN PRN LINE FLUSH Spironolactone 25 mg 11/10/21 10:00 11/10/21 09:33 Spironolactone 25 Mg Tab PO 25 mg QDAY RAMON Administration
[2021-11-10 14:16] LABS: Calcium 8.3 mg/dL (8.4-10.2)
[2021-11-10] MEDS: SENNOSIDES/DOCUSATE SODIUM 8.6/50 MG TAB FEEDTUBE SCH ×2 (15:01→21:15)
[2021-11-10] MEDS: ACETAMINOPHEN 325 MG TAB PO PRN (21:03)
[2021-11-10] MEDS: POTASSIUM CHLORIDE 20 MEQ PACKET FEEDTUBE SCH (21:08)
[2021-11-10] MEDS ORDERED: INSULIN GLARGINE 100 UNITS/ML SUB-Q SCH (22:00)
[2021-11-11] MEDS: INSULIN LISPRO 100 UNIT/ML SUB-Q SCH ×2 (00:33→18:00)
[2021-11-11] MEDS: METOPROLOL TARTRATE 50 MG TAB FEEDTUBE SCH ×3 (00:43→17:15)
[2021-11-11] MEDS: HEPARIN/ 0.45% NACL DRIP 25,000 UNIT/500 ML BAG IV SCH ×2 (01:10→14:40)
[2021-11-11 04:27] LABS: Hematocrit 22.7 % (30.3-42.9); Hemoglobin 7.2 gm/dl (10.1-14.3); Mean Corpuscular HGB Conc 32 % (30-34); Mean Corpuscular Volume 85 fl (79-97); Platelet Count 241 K/mm3 (140-440); Red Blood Count 2.69 M/mm3 (3.65-5.03); Red Cell Distribution Width 15.2 % (13.2-15.2)
[2021-11-11 04:48] LABS: Calcium 8.5 mg/dL (8.4-10.2)
--- NOTE | 2021-11-11 10:15 | Progress Note ---
Assessment and Plan Assessment: Acute Renal Failure secondary to Ischemic ATN secondary to Sepsis, Cardiac arrest and Hypotension S/P Cardiac Arrest Acute Hypoxemic Respiratory Failure Acute DVT Sepsis CHF Anemia Hyperkalemia Plan: Renal labs reviewed. Serum creatinine slightly down monitor. Na better. s/p D5W. Replace K prn ARF likely secondary to Ischemic ATN LVEF 25-30 % Renal US shows CKD signs, no hydronephrosis Ordered urine lytes, protein and eosinophils DVT-on Heparin drip Intubated on Vent, Per ICU Strict I/O's daily Renally dose medications Avoid nephratoxic agents No acute indication for [employer] Will monitor renal function closely Subjective Date of service: 11/11/21 Principal diagnosis: AHRF; Cardiac arrest; R. pneumothorax; pneumonia; AMS; DVT's; SIERRA; Obesity Interval history: Intubated on Vent. In ICU. Making urine. Objective - Exam Narrative Exam: - General Appearance General appearance: sedated on ventilator, intubated EENT: ATNC, other (Blinks eyes) Respiratory: Decreased Breath Sounds, Other (Intubated) Heart: S1S2 Gastrointestinal: Present: normoactive bowel sounds, other (NG tube) Integumentary: no rash, warm and dry Neurologic: other (Intubated, blinks eyes) Musculoskeletal: Present: other (mild edema to BLE) - Vital Signs Vital signs: Vital Signs - 12hr 11/10/21 11/10/21 11/10/21 22:30 23:00 23:08 Temperature Pulse Rate 66 65 65 Pulse Rate [ From Monitor] Respiratory 17 17 17 Rate Blood Pressure 117/61 121/62 121/62 O2 Sat by Pulse 98 98 99 Oximetry 11/10/21 11/10/21 11/11/21 23:30 23:48 00:00 Temperature 99.5 F Pulse Rate 68 67 Pulse Rate [ From Monitor] Respiratory 22 17 Rate Blood Pressure 124/64 126/64 O2 Sat by Pulse 98 97 Oximetry 11/11/21 11/11/21 11/11/21 00:20 00:30 00:43 Temperature Pulse Rate 76 76 68 Pulse Rate [ From Monitor] Respiratory 8 L 15 Rate Blood Pressure 126/64 126/64 135/81 O2 Sat by Pulse 99 99 Oximetry 11/11/21 11/11/21 11/11/21 00:44 01:00 01:30 Temperature Pulse Rate 68 70 70 Pulse Rate [ 70 From Monitor] Respiratory 18 19 18 Rate Blood Pressure 125/64 129/66 O2 Sat by Pulse 98 97 97 Oximetry 11/11/21 11/11/21 11/11/21 02:00 02:30 03:00 Temperature Pulse Rate 67 65 64 Pulse Rate [ From Monitor] Respiratory 15 15 15 Rate Blood Pressure 118/64 118/62 121/64 O2 Sat by Pulse 97 97 97 Oximetry 11/11/21 11/11/21 11/11/21 03:24 03:30 04:00 Temperature 99.3 F Pulse Rate 71 68 Pulse Rate [ 70 From Monitor] Respiratory 21 14 Rate Blood Pressure 131/64 127/64 O2 Sat by Pulse 98 97 Oximetry 11/11/21 11/11/21 11/11/21 04:30 05:00 05:30 Temperature Pulse Rate 70 67 66 Pulse Rate [ From Monitor] Respiratory 16 17 16 Rate Blood Pressure 140/72 140/72 116/60 O2 Sat by Pulse 97 100 96 Oximetry 11/11/21 11/11/21 11/11/21 06:00 06:30 07:00 Temperature Pulse Rate 67 68 71 Pulse Rate [ From Monitor] Respiratory 15 17 16 Rate Blood Pressure 106/64 106/64 107/71 O2 Sat by Pulse 98 100 99 Oximetry 11/11/21 11/11/21 11/11/21 07:16 07:30 07:31 Temperature 99.9 F H Pulse Rate 69 68 Pulse Rate [ From Monitor] Respiratory 17 Rate Blood Pressure 107/71 122/68 O2 Sat by Pulse 100 98 Oximetry 11/11/21 11/11/21 08:00 08:30 Temperature Pulse Rate 74 73 Pulse Rate [ 74 From Monitor] Respiratory 21 27 H Rate Blood Pressure 118/67 125/62 O2 Sat by Pulse 96 96 Oximetry - Lab 11/11/21 03:49 11/11/21 03:49 Most recent lab results ABG pH 7.447 pH Units (7.350-7.450) 11/09/21 08:45 ABG pCO2 50.0 mm Hg 11/09/21 08:45 ABG pO2 73.2 mm Hg (80.0-90.0) L 11/09/21 08:45 ABG HCO3 33.8 mmol/L (20.0-26.0) H 11/09/21 08:45 ABG O2 Saturation 96.0 % (95.0-99.0) 11/09/21 08:45 Calcium 8.5 mg/dL (8.4-10.2) 11/11/21 03:49 Phosphorus 3.60 mg/dL (2.5-4.5) 11/11/21 03:49 Magnesium 2.20 mg/dL (1.7-2.3) 11/11/21 03:49 Urine Creatinine 190.9 mg/dL (0.1-20.0) H 11/04/21 Unknown Urine Sodium 10 mmol/L 11/04/21 Unknown Urine Total Protein 172 mg/dL (5-11.8) H 11/04/21 Unknown Medications & Allergies - Medications Allergies/Adverse Reactions: Allergies No Known Allergies Allergy (Verified 10/29/21 14:01) Home Medications: Home Medications Medication Instructions Recorded Confirmed Last Taken Type Unobtainable 11/10/21 11/10/21 Unknown History Active Medications: Generic Name Dose Route Start Last Admin Trade Name Freq PRN Reason Stop Dose Admin Acetaminophen 650 mg 10/29/21 17:04 11/10/21 21:03 Acetaminophen 325 Mg Tab PO 650 mg Q6H PRN Administration Pain, Mild (1-3) Acetaminophen 650 mg 10/29/21 17:04 Acetaminophen 650 Mg Rect Supp MD Q6H PRN Pain MILD(1-3)/Fever >100.5/NIEVES Amiodarone HCl 200 mg 11/08/21 10:00 11/10/21 09:34 Amiodarone 200 Mg Tab PO 200 mg QDAY RAMON Administration Lipase/Protease/Amylase 1 each 10/31/21 08:56 Lipase 10,500/Protease 25,000/Amylase 43,750 (Units) Dr Ivory FEEDTUBE PRN PRN For Clogged Feeding Tube Dextrose 0 ml 11/04/21 13:48 11/05/21 15:29 Dextrose 10% *Hypoglycemia IV 250 ml PRN PRN Administration Hypoglycemia Famotidine 10 mg 11/06/21 10:00 11/10/21 21:12 Famotidine 10 Mg Tab PO 10 mg BID RAMON Administration Fentanyl 50 mcg 11/04/21 14:32 11/09/21 00:01 Fentanyl 100 Mcg/2 Ml Inj IV 50 mcg Q2H PRN Administration Pain, Moderate (4-6) Furosemide 40 mg 11/10/21 10:00 11/10/21 09:32 Furosemide 40 Mg Tab PO 40 mg QDAY RAMON Administration Heparin Sodium (Porcine) 4,300 unit 10/30/21 17:00 Heparin 10,000 Units/10 Ml Vial 40 unit/kg (4300 unit) IV Q6H PRN Anti-Xa Assay < 0.1 units/ml Hydralazine HCl 50 mg 11/09/21 14:00 11/10/21 21:12 Hydralazine 25 Mg Tab PO 50 mg Q8HR RAMON Administration Hydralazine HCl 10 mg 11/09/21 13:05 Hydralazine 20 Mg/1 Ml Inj IV Q4HR PRN Hypertension Hydrophilic Ointment 1 applic 10/29/21 14:29 11/09/21 08:51 Lip Therapy Vaseline TP 1 applic Q2HR PRN Administration Dry Lips NORepinephrine/NS 8 MG-250 ML 8 mg in 250 mls @ 3.75 mls/hr 10/29/21 15:00 11/04/21 07:00 Norepinephrine/Ns 8 Mg-250 Ml (Double Conc) IV 0 mcg/min TITRATE RAMON 0 mls/hr Titration Protocol 2 MCG/MIN Heparin Sodium/Sodium Chloride 25,000 unit in 500 mls @ 30 mls/hr 10/30/21 17:00 11/11/21 01:10 Heparin/ 0.45% Nacl-25,000 Unit/500 Ml IV 1,900 units/hr TITR RAMON 38 mls/hr Administration Protocol 1,500 UNITS/HR Dexmedetomidine HCl 200 mcg/ 50 mls @ 5.335 mls/hr 11/07/21 15:00 11/11/21 05:41 Sodium Chloride IV 0.9 mcg/kg/hr TITRATE RAMON 24.008 mls/hr Administration Protocol 0.2 MCG/KG/HR Insulin Glargine 20 units 11/10/21 22:00 11/10/21 21:10 Insulin Glargine 100 Units/Ml SUB-Q 20 units QHS RAMON Administration Insulin Human Lispro 0 unit 10/30/21 16:00 11/11/21 00:33 Insulin Lispro 100 Unit/Ml SUB-Q Not Given Q6HR [facility] Protocol Isosorbide Mononitrate 30 mg 11/08/21 10:00 11/10/21 09:32 Isosorbide Mononitrate Er 30 Mg Tab PO 30 mg QDAY RAMON Administration Metoprolol Tartrate 50 mg 11/07/21 12:00 11/11/21 00:43 Metoprolol Tartrate 50 Mg Tab FEEDTUBE 50 mg Q6H RAMON Administration Multi-Ingred Cream/Lotion/Oil/Oint 1 applic 10/29/21 14:29 11/06/21 09:25 Mineral Oil/Petrolatum, White Ophth Oint 3.5 Gm OU 1 applic Q4HR PRN Administration Dry Eye(s) Potassium Chloride 40 meq 11/10/21 22:00 11/10/21 21:08 Potassium Chloride 20 Meq Packet FEEDTUBE 11/11/21 22:01 40 meq BID RAMON Administration Senna/Docusate Sodium 1 tab 10/29/21 15:00 11/10/21 21:15 Sennosides/Docusate Sodium 8.6/50 Mg Tab FEEDTUBE 1 tab BID RAMON Administration Simple Syrup 15 ml 10/31/21 08:56 Simple Syrup 15 Ml FEEDTUBE PRN PRN Hypoglycemia Simple Syrup 30 ml 10/31/21 08:56 Simple Syrup 15 Ml FEEDTUBE PRN PRN Hypoglycemia Sodium Bicarbonate 325 mg 10/31/21 08:56 Sodium Bicarbonate 325 Mg Tab FEEDTUBE PRN PRN For Clogged Feeding Tube Sodium Chloride 10 ml 10/29/21 22:00 11/10/21 21:14 Sodium Chloride 0.9% 10 Ml Flush Syringe IV 10 ml BID RAMON Administration Sodium Chloride 10 ml 10/29/21 17:04 Sodium Chloride 0.9% 10 Ml Flush Syringe IV PRN PRN LINE FLUSH Spironolactone 25 mg 11/10/21 10:00 11/10/21 09:33 Spironolactone 25 Mg Tab PO 25 mg QDAY RAMON Administration
[2021-11-11] MEDS: POTASSIUM CHLORIDE 20 MEQ PACKET FEEDTUBE SCH ×2 (10:20→21:06)
[2021-11-11] MEDS: FAMOTIDINE 10 MG TAB PO SCH ×2 (10:20→21:09)
[2021-11-11] MEDS: SPIRONOLACTONE 25 MG TAB PO SCH (10:22)
[2021-11-11] MEDS: SENNOSIDES/DOCUSATE SODIUM 8.6/50 MG TAB FEEDTUBE SCH ×2 (10:22→21:06)
[2021-11-11] MEDS: FUROSEMIDE 40 MG TAB PO SCH (10:23)
[2021-11-11] MEDS: AMIODARONE 200 MG TAB PO SCH (10:23)
--- NOTE | 2021-11-11 11:12 | Progress Note ---
Assessment and Plan Assessment and Plan Assessment and plan: This is a 66-year-old female with past medical history of HTN and Obesity admitted for septic shock, s/p cardiac arrest with ROSC in the field now intubated and on ventilatory support # Acute encephalopathy -possibly multifactorial Improved she is alert follow command ,still intubated -PT therapy evaluation and rom to be done daily -CT head no acute focal parenchymal lesion in the brain -Brain MRI is unremarkable -EEG is remarkable for diffuse slowing possible drug related #New onset Atrial fibrillation/atrial flutter s/p cardiac arrest, HFrEF, hypotension, h/o htn -Echocardiogram shows left ventricular systolic function severely decreased, LVEF 25 to 30%, no pericardial effusion -proBNP 5622 -Amiodarone bolus with drip -Cardizem bolus with gtt -Heparin drip # Acute hypoxic respiratory failure, right pneumothorax, Angioedema (resolved) -SPO2 monitoring -Right chest tube to wall suction is out -s/p steroids for angioedema # Protein calorie malnutrion, transaminitis likely shocked liver -Trend LFTs -BM: 11/06 # Acute kidney injury likely secondary to vasomotor nephropathy, hyperkalemia, metabolic acidosis, -Bun/Cr#11/1.2 today # Septic shock -COVID-19 PCR negative -S/p antibiotic therapy with Rocephin and azithromycin () # Hyperglycemia -Avoid hypoglycemia -Hbg A1C 6.7 # Acute DVT in the left posterior tibial vein and bilateral peroneal veins, Leukocytosis -D-dimer greater than 10,000 -CTA chest with no evidence of PE -Bilateral lower extremity ultrasound positive for DVT -Heparin gtt -Trend CBC -SCDs to BLE while in bed -Transfuse hemoglobin less than 7 -Monitor for signs of bleeding. PLAN Xry left knee PT therapy will follow as needed Subjective Date of service: 11/11/21 Principal diagnosis: AHRF; Cardiac arrest; R. pneumothorax; pneumonia; AMS; DVT's; SIERRA; Obesity Interval history: she is more alert respond to command , stil intubated , move all limbs except localized tenderness left leg and knee swelling WBC#22.1 Objective - Vital Sign Vital Signs - 12hr 11/10/21 11/10/21 11/10/21 23:08 23:30 23:48 Temperature 99.5 F Pulse Rate 65 68 Pulse Rate [ From Monitor] Respiratory 17 22 Rate Blood Pressure 121/62 124/64 O2 Sat by Pulse 99 98 Oximetry 11/11/21 11/11/21 11/11/21 00:00 00:20 00:30 Temperature Pulse Rate 67 76 76 Pulse Rate [ From Monitor] Respiratory 17 8 L 15 Rate Blood Pressure 126/64 126/64 126/64 O2 Sat by Pulse 97 99 99 Oximetry 11/11/21 11/11/21 11/11/21 00:43 00:44 01:00 Temperature Pulse Rate 68 68 70 Pulse Rate [ 70 From Monitor] Respiratory 18 19 Rate Blood Pressure 135/81 125/64 O2 Sat by Pulse 98 97 Oximetry 11/11/21 11/11/21 11/11/21 01:30 02:00 02:30 Temperature Pulse Rate 70 67 65 Pulse Rate [ From Monitor] Respiratory 18 15 15 Rate Blood Pressure 129/66 118/64 118/62 O2 Sat by Pulse 97 97 97 Oximetry 11/11/21 11/11/21 11/11/21 03:00 03:24 03:30 Temperature 99.3 F Pulse Rate 64 71 Pulse Rate [ From Monitor] Respiratory 15 21 Rate Blood Pressure 121/64 131/64 O2 Sat by Pulse 97 98 Oximetry 11/11/21 11/11/21 11/11/21 04:00 04:30 05:00 Temperature Pulse Rate 68 70 67 Pulse Rate [ 70 From Monitor] Respiratory 14 16 17 Rate Blood Pressure 127/64 140/72 140/72 O2 Sat by Pulse 97 97 100 Oximetry 11/11/21 11/11/21 11/11/21 05:30 06:00 06:30 Temperature Pulse Rate 66 67 68 Pulse Rate [ From Monitor] Respiratory 16 15 17 Rate Blood Pressure 116/60 106/64 106/64 O2 Sat by Pulse 96 98 100 Oximetry 11/11/21 11/11/21 11/11/21 07:00 07:16 07:30 Temperature Pulse Rate 71 69 68 Pulse Rate [ From Monitor] Respiratory 16 17 Rate Blood Pressure 107/71 107/71 122/68 O2 Sat by Pulse 99 100 98 Oximetry 11/11/21 11/11/21 11/11/21 07:31 08:00 08:30 Temperature 99.9 F H Pulse Rate 74 73 Pulse Rate [ 74 From Monitor] Respiratory 21 27 H Rate Blood Pressure 118/67 125/62 O2 Sat by Pulse 96 96 Oximetry 11/11/21 11/11/21 10:21 10:22 Temperature Pulse Rate 83 82 Pulse Rate [ From Monitor] Respiratory Rate Blood Pressure 153/75 153/75 O2 Sat by Pulse Oximetry - General Apperance Constitutional: comfortable - EENT EENT: PERRL - Respiratory Respiratory: chest non-tender, lungs clear, rhonchi - Cardiovascular Cardiovascular: regular rate, normal S1, normal S2 Extremities: other (leg swelling bilteral with tenderness left knee and difficulty moving left leg ) - Gastrointestinal Gastrointestinal: normoactive bowel sounds - Integumentary Integumentary: normal - Neurologic Cranial nerve examination: PERRL, EOMI, intact Speech examination: other (intubated) Detailed motor examination: other (move all except left leg with tenderness and swelling left knee) - Laboratory Findings CBC and BMP: 11/11/21 03:49 11/11/21 03:49 Abnormal Lab Findings: Abnormal Labs 10/29/21 10/29/21 10/29/21 15:10 15:10 15:10 WBC 27.8 H RBC Hgb Hct MCH 27 L RDW Plt Count Lymph % (Auto) Lymph # (Auto) [place] # (Auto) Seg Neutrophils % Seg Neuts % (Manual) 78.0 H Lymphocytes % (Manual) 10.0 L Nucleated RBC % Seg Neutrophils # Seg Neutrophils # Man 21.7 H Monocytes # (Manual) 1.4 H PT INR APTT D-Dimer Heparin Anti-Xa Level ABG pH ABG pO2 ABG HCO3 ABG O2 Saturation ABG Base Excess ABG Hemoglobin Oxyhemoglobin Sodium Potassium Chloride Carbon Dioxide BUN Creatinine Glucose POC Glucose Hemoglobin A1c Lactic Acid 6.80 H* Calcium Phosphorus Magnesium Ferritin AST ALT Alkaline Phosphatase Lactate Dehydrogenase Troponin T 0.089 H C-Reactive Protein Total Protein Albumin LDL Cholesterol Direct Urine Creatinine Urine Total Protein Salicylates Acetaminophen 10/29/21 10/29/21 10/29/21 15:10 15:10 15:10 WBC RBC Hgb Hct MCH RDW Plt Count Lymph % (Auto) Lymph # (Auto) [place] # (Auto) Seg Neutrophils % Seg Neuts % (Manual) Lymphocytes % (Manual) Nucleated RBC % Seg Neutrophils # Seg Neutrophils # Man Monocytes # (Manual) PT INR APTT D-Dimer Heparin Anti-Xa Level ABG pH ABG pO2 ABG HCO3 ABG O2 Saturation ABG Base Excess ABG Hemoglobin Oxyhemoglobin Sodium 136 L Potassium 2.8 L* Chloride 93.4 L Carbon Dioxide 20 L BUN Creatinine Glucose 330 H POC Glucose Hemoglobin A1c Lactic Acid Calcium Phosphorus Magnesium Ferritin AST 1013 H ALT 1289 H Alkaline Phosphatase 246 H Lactate Dehydrogenase Troponin T C-Reactive Protein Total Protein Albumin LDL Cholesterol Direct Urine Creatinine Urine Total Protein Salicylates < 0.3 L Acetaminophen 5.0 L 10/29/21 10/29/21 10/29/21 15:11 16:01 19:29 WBC RBC Hgb Hct MCH RDW Plt Count Lymph % (Auto) Lymph # (Auto) [place] # (Auto) Seg Neutrophils % Seg Neuts % (Manual) Lymphocytes % (Manual) Nucleated RBC % Seg Neutrophils # Seg Neutrophils # Man Monocytes # (Manual) PT INR APTT D-Dimer Heparin Anti-Xa Level ABG pH 7.307 L ABG pO2 64.1 L ABG HCO3 ABG O2 Saturation 90.8 L ABG Base Excess -2.9 L ABG Hemoglobin Oxyhemoglobin 89.3 L Sodium Potassium Chloride Carbon Dioxide BUN Creatinine Glucose POC Glucose Hemoglobin A1c Lactic Acid 2.60 H* Calcium Phosphorus Magnesium 2.90 H Ferritin AST ALT Alkaline Phosphatase Lactate Dehydrogenase Troponin T C-Reactive Protein Total Protein Albumin LDL Cholesterol Direct Urine Creatinine Urine Total Protein Salicylates Acetaminophen 10/29/21 10/29/21 10/30/21 19:40 22:34 04:30 WBC 16.2 H RBC Hgb Hct MCH 26 L RDW 15.5 H Plt Count Lymph % (Auto) 6.2 L Lymph # (Auto) 1.0 L [place] # (Auto) 0.9 H Seg Neutrophils % 88.1 H Seg Neuts % (Manual) Lymphocytes % (Manual) Nucleated RBC % Seg Neutrophils # 14.2 H Seg Neutrophils # Man Monocytes # (Manual) PT INR APTT D-Dimer Heparin Anti-Xa Level ABG pH ABG pO2 ABG HCO3 ABG O2 Saturation ABG Base Excess ABG Hemoglobin Oxyhemoglobin Sodium Potassium Chloride Carbon Dioxide BUN Creatinine Glucose POC Glucose Hemoglobin A1c Lactic Acid Calcium Phosphorus Magnesium Ferritin AST ALT Alkaline Phosphatase Lactate Dehydrogenase Troponin T 1.950 H* D 1.150 H* D C-Reactive Protein Total Protein Albumin LDL Cholesterol Direct 43 L Urine Creatinine Urine Total Protein Salicylates Acetaminophen 10/30/21 10/30/21 10/30/21 04:30 04:35 05:45 WBC RBC Hgb Hct MCH RDW Plt Count Lymph % (Auto) Lymph # (Auto) [place] # (Auto) Seg Neutrophils % Seg Neuts % (Manual) Lymphocytes % (Manual) Nucleated RBC % Seg Neutrophils # Seg Neutrophils # Man Monocytes # (Manual) PT INR APTT D-Dimer Heparin Anti-Xa Level ABG pH ABG pO2 69.5 L ABG HCO3 ABG O2 Saturation ABG Base Excess -2.7 L ABG Hemoglobin Oxyhemoglobin 94.7 L Sodium Potassium Chloride Carbon Dioxide 21 L BUN Creatinine Glucose 159 H POC Glucose 151 H Hemoglobin A1c Lactic Acid Calcium 7.9 L D Phosphorus Magnesium Ferritin AST 461 H ALT 686 H Alkaline Phosphatase 130 H Lactate Dehydrogenase Troponin T C-Reactive Protein Total Protein 5.6 L D Albumin 3.2 L LDL Cholesterol Direct Urine Creatinine Urine Total Protein Salicylates Acetaminophen 10/30/21 10/30/21 10/30/21 11:24 15:59 16:30 WBC RBC Hgb Hct MCH RDW Plt Count Lymph % (Auto) Lymph # (Auto) [place] # (Auto) Seg Neutrophils % Seg Neuts % (Manual) Lymphocytes % (Manual) Nucleated RBC % Seg Neutrophils # Seg Neutrophils # Man Monocytes # (Manual) PT 17.2 H INR 1.27 H APTT 44.4 H D-Dimer Heparin Anti-Xa Level ABG pH ABG pO2 ABG HCO3 ABG O2 Saturation ABG Base Excess ABG Hemoglobin Oxyhemoglobin Sodium Potassium Chloride Carbon Dioxide BUN Creatinine Glucose POC Glucose 153 H 109 H Hemoglobin A1c Lactic Acid Calcium Phosphorus Magnesium Ferritin AST ALT Alkaline Phosphatase Lactate Dehydrogenase Troponin T C-Reactive Protein Total Protein Albumin LDL Cholesterol Direct Urine Creatinine Urine Total Protein Salicylates Acetaminophen 10/30/21 10/30/21 10/30/21 23:00 Unknown Unknown WBC RBC Hgb Hct MCH RDW Plt Count Lymph % (Auto) Lymph # (Auto) [place] # (Auto) Seg Neutrophils % Seg Neuts % (Manual) Lymphocytes % (Manual) Nucleated RBC % Seg Neutrophils # Seg Neutrophils # Man Monocytes # (Manual) PT INR APTT D-Dimer > 94090 H Heparin Anti-Xa Level 0.82 H ABG pH ABG pO2 ABG HCO3 ABG O2 Saturation ABG Base Excess ABG Hemoglobin Oxyhemoglobin Sodium Potassium Chloride Carbon Dioxide BUN Creatinine Glucose POC Glucose Hemoglobin A1c Lactic Acid Calcium Phosphorus Magnesium Ferritin 208.4 H AST ALT Alkaline Phosphatase Lactate Dehydrogenase Troponin T C-Reactive Protein Total Protein Albumin LDL Cholesterol Direct Urine Creatinine Urine Total Protein Salicylates Acetaminophen 10/30/21 10/31/21 10/31/21 Unknown 04:30 04:30 WBC 14.4 H RBC Hgb Hct MCH 26 L RDW Plt Count Lymph % (Auto) Lymph # (Auto) [place] # (Auto) Seg Neutrophils % Seg Neuts % (Manual) Lymphocytes % (Manual) Nucleated RBC % Seg Neutrophils # Seg Neutrophils # Man Monocytes # (Manual) PT INR APTT D-Dimer Heparin Anti-Xa Level ABG pH ABG pO2 ABG HCO3 ABG O2 Saturation ABG Base Excess ABG Hemoglobin Oxyhemoglobin Sodium Potassium 3.5 L Chloride 107.5 H Carbon Dioxide 20 L BUN 28 H Creatinine 1.7 H Glucose 113 H POC Glucose Hemoglobin A1c Lactic Acid Calcium 7.9 L Phosphorus Magnesium Ferritin AST ALT Alkaline Phosphatase Lactate Dehydrogenase 469 H Troponin T C-Reactive Protein 13.40 H Total Protein Albumin LDL Cholesterol Direct Urine Creatinine Urine Total Protein Salicylates Acetaminophen 10/31/21 10/31/21 10/31/21 04:30 05:11 15:30 WBC RBC Hgb Hct MCH RDW Plt Count Lymph % (Auto) Lymph # (Auto) [place] # (Auto) Seg Neutrophils % Seg Neuts % (Manual) Lymphocytes % (Manual) Nucleated RBC % Seg Neutrophils # Seg Neutrophils # Man Monocytes # (Manual) PT INR APTT D-Dimer Heparin Anti-Xa Level ABG pH 7.222 L ABG pO2 61.5 L ABG HCO3 ABG O2 Saturation 86.2 L ABG Base Excess -6.3 L ABG Hemoglobin 11.2 L Oxyhemoglobin 84.5 L Sodium Potassium Chloride Carbon Dioxide BUN Creatinine Glucose POC Glucose 106 H Hemoglobin A1c 6.7 H Lactic Acid Calcium Phosphorus Magnesium Ferritin AST ALT Alkaline Phosphatase Lactate Dehydrogenase Troponin T C-Reactive Protein Total Protein Albumin LDL Cholesterol Direct Urine Creatinine Urine Total Protein Salicylates Acetaminophen 10/31/21 10/31/21 10/31/21 16:07 16:35 17:45 WBC RBC Hgb Hct MCH RDW Plt Count Lymph % (Auto) Lymph # (Auto) [place] # (Auto) Seg Neutrophils % Seg Neuts % (Manual) Lymphocytes % (Manual) Nucleated RBC % Seg Neutrophils # Seg Neutrophils # Man Monocytes # (Manual) PT INR APTT D-Dimer Heparin Anti-Xa Level ABG pH 7.267 L ABG pO2 58.3 L ABG HCO3 ABG O2 Saturation 88.3 L ABG Base Excess -5.9 L ABG Hemoglobin 10.1 L Oxyhemoglobin 86.5 L Sodium Potassium Chloride Carbon Dioxide BUN Creatinine Glucose POC Glucose 115 H Hemoglobin A1c Lactic Acid Calcium Phosphorus Magnesium Ferritin AST ALT Alkaline Phosphatase Lactate Dehydrogenase Troponin T C-Reactive Protein Total Protein Albumin LDL Cholesterol Direct Urine Creatinine 383.6 H Urine Total Protein Salicylates Acetaminophen 11/01/21 11/01/21 11/01/21 00:06 05:08 06:00 WBC 12.6 H RBC 3.43 L Hgb 8.9 L Hct 28.7 L MCH 26 L RDW 15.7 H Plt Count 130 L Lymph % (Auto) Lymph # (Auto) [place] # (Auto) Seg Neutrophils % Seg Neuts % (Manual) Lymphocytes % (Manual) Nucleated RBC % Seg Neutrophils # Seg Neutrophils # Man Monocytes # (Manual) PT INR APTT D-Dimer Heparin Anti-Xa Level ABG pH ABG pO2 ABG HCO3 ABG O2 Saturation ABG Base Excess ABG Hemoglobin Oxyhemoglobin Sodium Potassium Chloride Carbon Dioxide BUN Creatinine Glucose POC Glucose 114 H 120 H Hemoglobin A1c Lactic Acid Calcium Phosphorus Magnesium Ferritin AST ALT Alkaline Phosphatase Lactate Dehydrogenase Troponin T C-Reactive Protein Total Protein Albumin LDL Cholesterol Direct Urine Creatinine Urine Total Protein Salicylates Acetaminophen 11/01/21 11/01/21 11/01/21 06:00 11:43 14:00 WBC RBC Hgb Hct MCH RDW Plt Count Lymph % (Auto) Lymph # (Auto) [place] # (Auto) Seg Neutrophils % Seg Neuts % (Manual) Lymphocytes % (Manual) Nucleated RBC % Seg Neutrophils # Seg Neutrophils # Man Monocytes # (Manual) PT INR APTT D-Dimer Heparin Anti-Xa Level ABG pH 7.349 L ABG pO2 75.6 L ABG HCO3 ABG O2 Saturation ABG Base Excess -3.9 L ABG Hemoglobin 9.8 L Oxyhemoglobin 93.5 L Sodium Potassium Chloride 114.1 H Carbon Dioxide 20 L BUN 33 H Creatinine Glucose 131 H POC Glucose 151 H Hemoglobin A1c Lactic Acid Calcium 7.7 L Phosphorus Magnesium Ferritin AST 79 H ALT 259 H Alkaline Phosphatase Lactate Dehydrogenase Troponin T C-Reactive Protein Total Protein 5.5 L Albumin 2.7 L LDL Cholesterol Direct Urine Creatinine Urine Total Protein Salicylates Acetaminophen 11/01/21 11/01/21 11/02/21 16:45 22:55 05:12 WBC RBC Hgb Hct MCH RDW Plt Count Lymph % (Auto) Lymph # (Auto) [place] # (Auto) Seg Neutrophils % Seg Neuts % (Manual) Lymphocytes % (Manual) Nucleated RBC % Seg Neutrophils # Seg Neutrophils # Man Monocytes # (Manual) PT INR APTT D-Dimer Heparin Anti-Xa Level ABG pH ABG pO2 ABG HCO3 ABG O2 Saturation ABG Base Excess ABG Hemoglobin Oxyhemoglobin Sodium Potassium Chloride Carbon Dioxide BUN Creatinine Glucose POC Glucose 119 H 129 H 140 H Hemoglobin A1c Lactic Acid Calcium Phosphorus Magnesium Ferritin AST ALT Alkaline Phosphatase Lactate Dehydrogenase Troponin T C-Reactive Protein Total Protein Albumin LDL Cholesterol Direct Urine Creatinine Urine Total Protein Salicylates Acetaminophen 11/02/21 11/02/21 11/02/21 05:35 05:35 09:35 WBC 13.5 H RBC 3.60 L Hgb 9.7 L Hct MCH 27 L RDW 15.7 H Plt Count Lymph % (Auto) Lymph # (Auto) [place] # (Auto) Seg Neutrophils % Seg Neuts % (Manual) Lymphocytes % (Manual) Nucleated RBC % Seg Neutrophils # Seg Neutrophils # Man Monocytes # (Manual) PT INR APTT D-Dimer Heparin Anti-Xa Level ABG pH 7.208 L ABG pO2 75.9 L ABG HCO3 ABG O2 Saturation 93.6 L ABG Base Excess -4.3 L ABG Hemoglobin 9.1 L Oxyhemoglobin 91.6 L Sodium Potassium 5.2 H D Chloride 112.6 H Carbon Dioxide BUN 32 H Creatinine Glucose 152 H POC Glucose Hemoglobin A1c Lactic Acid Calcium 8.2 L Phosphorus Magnesium 2.70 H Ferritin AST ALT Alkaline Phosphatase Lactate Dehydrogenase Troponin T C-Reactive Protein Total Protein Albumin LDL Cholesterol Direct Urine Creatinine Urine Total Protein Salicylates Acetaminophen 11/02/21 11/02/21 11/02/21 11:44 17:13 23:43 WBC RBC Hgb Hct MCH RDW Plt Count Lymph % (Auto) Lymph # (Auto) [place] # (Auto) Seg Neutrophils % Seg Neuts % (Manual) Lymphocytes % (Manual) Nucleated RBC % Seg Neutrophils # Seg Neutrophils # Man Monocytes # (Manual) PT INR APTT D-Dimer Heparin Anti-Xa Level ABG pH ABG pO2 ABG HCO3 ABG O2 Saturation ABG Base Excess ABG Hemoglobin Oxyhemoglobin Sodium Potassium Chloride Carbon Dioxide BUN Creatinine Glucose POC Glucose 173 H 148 H 137 H Hemoglobin A1c Lactic Acid Calcium Phosphorus Magnesium Ferritin AST ALT Alkaline Phosphatase Lactate Dehydrogenase Troponin T C-Reactive Protein Total Protein Albumin LDL Cholesterol Direct Urine Creatinine Urine Total Protein Salicylates Acetaminophen 11/03/21 11/03/21 11/03/21 04:59 06:00 06:00 WBC RBC 3.43 L Hgb 9.1 L Hct 29.0 L MCH 26 L RDW 16.4 H Plt Count Lymph % (Auto) Lymph # (Auto) [place] # (Auto) Seg Neutrophils % Seg Neuts % (Manual) Lymphocytes % (Manual) Nucleated RBC % Seg Neutrophils # Seg Neutrophils # Man Monocytes # (Manual) PT INR APTT D-Dimer Heparin Anti-Xa Level 0.17 L ABG pH ABG pO2 ABG HCO3 ABG O2 Saturation ABG Base Excess ABG Hemoglobin Oxyhemoglobin Sodium Potassium Chloride Carbon Dioxide BUN Creatinine Glucose POC Glucose 167 H Hemoglobin A1c Lactic Acid Calcium Phosphorus Magnesium Ferritin AST ALT Alkaline Phosphatase Lactate Dehydrogenase Troponin T C-Reactive Protein Total Protein Albumin LDL Cholesterol Direct Urine Creatinine Urine Total Protein Salicylates Acetaminophen 11/03/21 11/03/21 11/03/21 06:00 09:20 11:58 WBC RBC Hgb Hct MCH RDW Plt Count Lymph % (Auto) Lymph # (Auto) [place] # (Auto) Seg Neutrophils % Seg Neuts % (Manual) Lymphocytes % (Manual) Nucleated RBC % Seg Neutrophils # Seg Neutrophils # Man Monocytes # (Manual) PT INR APTT D-Dimer Heparin Anti-Xa Level ABG pH 7.274 L ABG pO2 75.6 L ABG HCO3 ABG O2 Saturation 94.9 L ABG Base Excess -2.5 L ABG Hemoglobin 9.3 L Oxyhemoglobin 92.9 L Sodium 149 H Potassium Chloride 117.5 H Carbon Dioxide BUN 32 H Creatinine Glucose 173 H POC Glucose 192 H Hemoglobin A1c Lactic Acid Calcium 8.1 L Phosphorus Magnesium Ferritin AST ALT Alkaline Phosphatase Lactate Dehydrogenase Troponin T C-Reactive Protein Total Protein Albumin LDL Cholesterol Direct Urine Creatinine Urine Total Protein Salicylates Acetaminophen 11/03/21 11/03/21 11/04/21 18:22 Unknown 00:09 WBC RBC Hgb Hct MCH RDW Plt Count Lymph % (Auto) Lymph # (Auto) [place] # (Auto) Seg Neutrophils % Seg Neuts % (Manual) Lymphocytes % (Manual) Nucleated RBC % Seg Neutrophils # Seg Neutrophils # Man Monocytes # (Manual) PT INR APTT D-Dimer Heparin Anti-Xa Level 0.29 L ABG pH ABG pO2 ABG HCO3 ABG O2 Saturation ABG Base Excess ABG Hemoglobin Oxyhemoglobin Sodium Potassium Chloride Carbon Dioxide BUN Creatinine Glucose POC Glucose 178 H 221 H Hemoglobin A1c Lactic Acid Calcium Phosphorus Magnesium Ferritin AST ALT Alkaline Phosphatase Lactate Dehydrogenase Troponin T C-Reactive Protein Total Protein Albumin LDL Cholesterol Direct Urine Creatinine Urine Total Protein Salicylates Acetaminophen 11/04/21 11/04/21 11/04/21 05:09 09:40 09:40 WBC 16.8 H RBC Hgb Hct MCH 27 L RDW 16.5 H Plt Count Lymph % (Auto) Lymph # (Auto) [place] # (Auto) Seg Neutrophils % Seg Neuts % (Manual) Lymphocytes % (Manual) Nucleated RBC % Seg Neutrophils # Seg Neutrophils # Man Monocytes # (Manual) PT INR APTT D-Dimer Heparin Anti-Xa Level ABG pH ABG pO2 ABG HCO3 ABG O2 Saturation ABG Base Excess ABG Hemoglobin Oxyhemoglobin Sodium Potassium 5.9 H Chloride 108.5 H Carbon Dioxide BUN 54 H Creatinine 1.8 H Glucose 198 H POC Glucose 182 H Hemoglobin A1c Lactic Acid Calcium Phosphorus Magnesium 3.00 H Ferritin AST ALT Alkaline Phosphatase Lactate Dehydrogenase Troponin T C-Reactive Protein Total Protein Albumin LDL Cholesterol Direct Urine Creatinine Urine Total Protein Salicylates Acetaminophen 11/04/21 11/04/21 11/04/21 12:13 13:34 14:05 WBC RBC Hgb Hct MCH RDW Plt Count Lymph % (Auto) Lymph # (Auto) [place] # (Auto) Seg Neutrophils % Seg Neuts % (Manual) Lymphocytes % (Manual) Nucleated RBC % Seg Neutrophils # Seg Neutrophils # Man Monocytes # (Manual) PT INR APTT D-Dimer Heparin Anti-Xa Level ABG pH 7.223 L ABG pO2 71.3 L ABG HCO3 ABG O2 Saturation 92.8 L ABG Base Excess ABG Hemoglobin 8.2 L Oxyhemoglobin 91.0 L Sodium Potassium Chloride Carbon Dioxide BUN Creatinine Glucose POC Glucose 184 H Hemoglobin A1c Lactic Acid Calcium Phosphorus Magnesium Ferritin AST ALT Alkaline Phosphatase Lactate Dehydrogenase Troponin T C-Reactive Protein Total Protein Albumin LDL Cholesterol Direct Urine Creatinine 184.6 H Urine Total Protein Salicylates Acetaminophen 11/04/21 11/04/21 11/05/21 18:02 Unknown 00:07 WBC RBC Hgb Hct MCH RDW Plt Count Lymph % (Auto) Lymph # (Auto) [place] # (Auto) Seg Neutrophils % Seg Neuts % (Manual) Lymphocytes % (Manual) Nucleated RBC % Seg Neutrophils # Seg Neutrophils # Man Monocytes # (Manual) PT INR APTT D-Dimer Heparin Anti-Xa Level ABG pH ABG pO2 ABG HCO3 ABG O2 Saturation ABG Base Excess ABG Hemoglobin Oxyhemoglobin Sodium Potassium Chloride Carbon Dioxide BUN Creatinine Glucose POC Glucose 262 H 259 H Hemoglobin A1c Lactic Acid Calcium Phosphorus Magnesium Ferritin AST ALT Alkaline Phosphatase Lactate Dehydrogenase Troponin T C-Reactive Protein Total Protein Albumin LDL Cholesterol Direct Urine Creatinine 190.9 H Urine Total Protein 172 H Salicylates Acetaminophen 11/05/21 11/05/21 11/05/21 04:20 04:20 05:30 WBC 17.9 H RBC 3.64 L Hgb 9.7 L Hct MCH 27 L RDW 16.4 H Plt Count Lymph % (Auto) Lymph # (Auto) [place] # (Auto) Seg Neutrophils % Seg Neuts % (Manual) Lymphocytes % (Manual) Nucleated RBC % Seg Neutrophils # Seg Neutrophils # Man Monocytes # (Manual) PT INR APTT D-Dimer Heparin Anti-Xa Level ABG pH ABG pO2 ABG HCO3 ABG O2 Saturation ABG Base Excess ABG Hemoglobin Oxyhemoglobin Sodium Potassium 5.6 H Chloride 108.4 H Carbon Dioxide BUN 71 H Creatinine 1.9 H Glucose 270 H POC Glucose 283 H Hemoglobin A1c Lactic Acid Calcium Phosphorus Magnesium Ferritin AST ALT Alkaline Phosphatase Lactate Dehydrogenase Troponin T C-Reactive Protein Total Protein Albumin LDL Cholesterol Direct Urine Creatinine Urine Total Protein Salicylates Acetaminophen 11/05/21 11/05/21 11/05/21 10:05 12:10 15:29 WBC RBC Hgb Hct MCH RDW Plt Count Lymph % (Auto) Lymph # (Auto) [place] # (Auto) Seg Neutrophils % Seg Neuts % (Manual) Lymphocytes % (Manual) Nucleated RBC % Seg Neutrophils # Seg Neutrophils # Man Monocytes # (Manual) PT INR APTT D-Dimer Heparin Anti-Xa Level ABG pH 7.248 L ABG pO2 73.7 L ABG HCO3 26.2 H ABG O2 Saturation 93.1 L ABG Base Excess ABG Hemoglobin 8.9 L Oxyhemoglobin 91.4 L Sodium Potassium Chloride Carbon Dioxide BUN Creatinine Glucose POC Glucose 225 H 199 H Hemoglobin A1c Lactic Acid Calcium Phosphorus Magnesium Ferritin AST ALT Alkaline Phosphatase Lactate Dehydrogenase Troponin T C-Reactive Protein Total Protein Albumin LDL Cholesterol Direct Urine Creatinine Urine Total Protein Salicylates Acetaminophen 11/05/21 11/05/21 11/05/21 15:51 17:32 17:40 WBC RBC Hgb Hct MCH RDW Plt Count Lymph % (Auto) Lymph # (Auto) [place] # (Auto) Seg Neutrophils % Seg Neuts % (Manual) Lymphocytes % (Manual) Nucleated RBC % Seg Neutrophils # Seg Neutrophils # Man Monocytes # (Manual) PT INR APTT D-Dimer Heparin Anti-Xa Level ABG pH ABG pO2 ABG HCO3 ABG O2 Saturation ABG Base Excess ABG Hemoglobin Oxyhemoglobin Sodium Potassium 5.2 H Chloride 107.8 H Carbon Dioxide BUN 79 H Creatinine 1.9 H Glucose 204 H POC Glucose 278 H 197 H Hemoglobin A1c Lactic Acid Calcium Phosphorus Magnesium Ferritin AST ALT Alkaline Phosphatase Lactate Dehydrogenase Troponin T C-Reactive Protein Total Protein Albumin LDL Cholesterol Direct Urine Creatinine Urine Total Protein Salicylates Acetaminophen 11/05/21 11/05/21 11/05/21 21:25 22:22 23:43 WBC RBC Hgb Hct MCH RDW Plt Count Lymph % (Auto) Lymph # (Auto) [place] # (Auto) Seg Neutrophils % Seg Neuts % (Manual) Lymphocytes % (Manual) Nucleated RBC % Seg Neutrophils # Seg Neutrophils # Man Monocytes # (Manual) PT INR APTT D-Dimer Heparin Anti-Xa Level ABG pH ABG pO2 ABG HCO3 ABG O2 Saturation ABG Base Excess ABG Hemoglobin Oxyhemoglobin Sodium Potassium 5.3 H Chloride 109.2 H Carbon Dioxide BUN 81 H Creatinine 2.0 H Glucose 195 H POC Glucose 180 H 203 H Hemoglobin A1c Lactic Acid Calcium Phosphorus Magnesium Ferritin AST ALT Alkaline Phosphatase Lactate Dehydrogenase Troponin T C-Reactive Protein Total Protein Albumin LDL Cholesterol Direct Urine Creatinine Urine Total Protein Salicylates Acetaminophen 11/05/21 11/06/21 11/06/21 Unknown 02:35 05:09 WBC RBC Hgb Hct MCH RDW Plt Count Lymph % (Auto) Lymph # (Auto) [place] # (Auto) Seg Neutrophils % Seg Neuts % (Manual) Lymphocytes % (Manual) Nucleated RBC % Seg Neutrophils # Seg Neutrophils # Man Monocytes # (Manual) PT INR APTT D-Dimer Heparin Anti-Xa Level ABG pH ABG pO2 ABG HCO3 ABG O2 Saturation ABG Base Excess ABG Hemoglobin Oxyhemoglobin Sodium 146 H Potassium 6.0 H Chloride 108.1 H 107.1 H Carbon Dioxide 21 L BUN 80 H 84 H Creatinine 2.0 H 2.0 H Glucose 238 H 235 H POC Glucose 215 H Hemoglobin A1c Lactic Acid Calcium Phosphorus Magnesium 2.80 H Ferritin AST ALT 77 H Alkaline Phosphatase Lactate Dehydrogenase Troponin T C-Reactive Protein Total Protein Albumin 3.0 L LDL Cholesterol Direct Urine Creatinine Urine Total Protein Salicylates Acetaminophen 11/06/21 11/06/21 11/06/21 05:40 08:07 08:07 WBC RBC Hgb Hct MCH RDW Plt Count Lymph % (Auto) Lymph # (Auto) [place] # (Auto) Seg Neutrophils % Seg Neuts % (Manual) Lymphocytes % (Manual) Nucleated RBC % Seg Neutrophils # Seg Neutrophils # Man Monocytes # (Manual) PT INR APTT D-Dimer Heparin Anti-Xa Level 1.24 H ABG pH 7.311 L ABG pO2 72.8 L ABG HCO3 29.7 H ABG O2 Saturation 94.1 L ABG Base Excess ABG Hemoglobin 11.4 L Oxyhemoglobin 92.3 L Sodium Potassium 5.2 H Chloride Carbon Dioxide BUN 85 H Creatinine 2.3 H Glucose 236 H POC Glucose Hemoglobin A1c Lactic Acid Calcium Phosphorus Magnesium Ferritin AST ALT Alkaline Phosphatase Lactate Dehydrogenase Troponin T C-Reactive Protein Total Protein Albumin LDL Cholesterol Direct Urine Creatinine Urine Total Protein Salicylates Acetaminophen 11/06/21 11/06/21 11/06/21 12:14 12:57 14:28 WBC RBC Hgb Hct MCH RDW Plt Count Lymph % (Auto) Lymph # (Auto) [place] # (Auto) Seg Neutrophils % Seg Neuts % (Manual) Lymphocytes % (Manual) Nucleated RBC % Seg Neutrophils # Seg Neutrophils # Man Monocytes # (Manual) PT INR APTT D-Dimer Heparin Anti-Xa Level ABG pH 7.282 L ABG pO2 72.6 L ABG HCO3 30.8 H ABG O2 Saturation 93.7 L ABG Base Excess 3.2 H ABG Hemoglobin 8.6 L Oxyhemoglobin 91.8 L Sodium Potassium Chloride Carbon Dioxide BUN 91 H Creatinine 2.6 H Glucose 259 H POC Glucose 225 H Hemoglobin A1c Lactic Acid Calcium Phosphorus Magnesium Ferritin AST ALT Alkaline Phosphatase Lactate Dehydrogenase Troponin T C-Reactive Protein Total Protein Albumin LDL Cholesterol Direct Urine Creatinine Urine Total Protein Salicylates Acetaminophen 11/06/21 11/06/21 11/06/21 17:28 19:20 21:30 WBC RBC Hgb Hct MCH RDW Plt Count Lymph % (Auto) Lymph # (Auto) [place] # (Auto) Seg Neutrophils % Seg Neuts % (Manual) Lymphocytes % (Manual) Nucleated RBC % Seg Neutrophils # Seg Neutrophils # Man Monocytes # (Manual) PT INR APTT D-Dimer Heparin Anti-Xa Level 0.73 H ABG pH ABG pO2 ABG HCO3 ABG O2 Saturation ABG Base Excess ABG Hemoglobin Oxyhemoglobin Sodium Potassium Chloride Carbon Dioxide BUN 95 H Creatinine 2.9 H Glucose 233 H POC Glucose 206 H Hemoglobin A1c Lactic Acid Calcium Phosphorus Magnesium Ferritin AST ALT Alkaline Phosphatase Lactate Dehydrogenase Troponin T C-Reactive Protein Total Protein Albumin LDL Cholesterol Direct Urine Creatinine Urine Total Protein Salicylates Acetaminophen 11/06/21 11/07/21 11/07/21 22:56 05:06 06:30 WBC RBC Hgb Hct MCH RDW Plt Count Lymph % (Auto) Lymph # (Auto) [place] # (Auto) Seg Neutrophils % Seg Neuts % (Manual) Lymphocytes % (Manual) Nucleated RBC % Seg Neutrophils # Seg Neutrophils # Man Monocytes # (Manual) PT INR APTT D-Dimer Heparin Anti-Xa Level ABG pH ABG pO2 ABG HCO3 ABG O2 Saturation ABG Base Excess ABG Hemoglobin Oxyhemoglobin Sodium 146 H Potassium Chloride Carbon Dioxide BUN 98 H Creatinine 2.8 H Glucose 202 H POC Glucose 215 H 172 H Hemoglobin A1c Lactic Acid Calcium Phosphorus 4.90 H D Magnesium 2.90 H Ferritin AST ALT Alkaline Phosphatase Lactate Dehydrogenase Troponin T C-Reactive Protein Total Protein Albumin LDL Cholesterol Direct Urine Creatinine Urine Total Protein Salicylates Acetaminophen 11/07/21 11/07/21 11/07/21 06:30 11:26 12:15 WBC 16.0 H RBC 3.06 L Hgb 8.2 L Hct 26.1 L MCH 27 L RDW 16.2 H Plt Count Lymph % (Auto) Lymph # (Auto) [place] # (Auto) Seg Neutrophils % Seg Neuts % (Manual) 77.0 H Lymphocytes % (Manual) 11.0 L Nucleated RBC % 2.0 H Seg Neutrophils # Seg Neutrophils # Man 12.3 H Monocytes # (Manual) PT INR APTT D-Dimer Heparin Anti-Xa Level ABG pH 7.298 L ABG pO2 73.0 L ABG HCO3 33.3 H ABG O2 Saturation 94.4 L ABG Base Excess 5.8 H ABG Hemoglobin 8.2 L Oxyhemoglobin 92.7 L Sodium Potassium Chloride Carbon Dioxide BUN Creatinine Glucose POC Glucose 179 H Hemoglobin A1c Lactic Acid Calcium Phosphorus Magnesium Ferritin AST ALT Alkaline Phosphatase Lactate Dehydrogenase Troponin T C-Reactive Protein Total Protein Albumin LDL Cholesterol Direct Urine Creatinine Urine Total Protein Salicylates Acetaminophen 11/07/21 11/07/21 11/07/21 17:57 22:16 23:49 WBC RBC Hgb Hct MCH RDW Plt Count Lymph % (Auto) Lymph # (Auto) [place] # (Auto) Seg Neutrophils % Seg Neuts % (Manual) Lymphocytes % (Manual) Nucleated RBC % Seg Neutrophils # Seg Neutrophils # Man Monocytes # (Manual) PT INR APTT D-Dimer Heparin Anti-Xa Level ABG pH ABG pO2 ABG HCO3 ABG O2 Saturation ABG Base Excess ABG Hemoglobin Oxyhemoglobin Sodium Potassium Chloride Carbon Dioxide BUN Creatinine Glucose POC Glucose 166 H 223 H 190 H Hemoglobin A1c Lactic Acid Calcium Phosphorus Magnesium Ferritin AST ALT Alkaline Phosphatase Lactate Dehydrogenase Troponin T C-Reactive Protein Total Protein Albumin LDL Cholesterol Direct Urine Creatinine Urine Total Protein Salicylates Acetaminophen 11/08/21 11/08/21 11/08/21 04:20 04:20 06:16 WBC 22.1 H RBC 3.01 L Hgb 8.1 L Hct 25.6 L MCH 27 L RDW 15.4 H Plt Count Lymph % (Auto) Lymph # (Auto) [place] # (Auto) Seg Neutrophils % Seg Neuts % (Manual) Lymphocytes % (Manual) Nucleated RBC % Seg Neutrophils # Seg Neutrophils # Man Monocytes # (Manual) PT INR APTT D-Dimer Heparin Anti-Xa Level ABG pH ABG pO2 ABG HCO3 ABG O2 Saturation ABG Base Excess ABG Hemoglobin Oxyhemoglobin Sodium 151 H Potassium 3.1 L D Chloride 107.3 H Carbon Dioxide 31 H BUN 82 H Creatinine 1.8 H Glucose 232 H POC Glucose 198 H Hemoglobin A1c Lactic Acid Calcium 8.1 L Phosphorus Magnesium Ferritin AST ALT Alkaline Phosphatase Lactate Dehydrogenase Troponin T C-Reactive Protein Total Protein Albumin LDL Cholesterol Direct Urine Creatinine Urine Total Protein Salicylates Acetaminophen 11/08/21 11/08/21 11/08/21 11:38 12:00 18:29 WBC RBC Hgb Hct MCH RDW Plt Count Lymph % (Auto) Lymph # (Auto) [place] # (Auto) Seg Neutrophils % Seg Neuts % (Manual) Lymphocytes % (Manual) Nucleated RBC % Seg Neutrophils # Seg Neutrophils # Man Monocytes # (Manual) PT INR APTT D-Dimer Heparin Anti-Xa Level ABG pH ABG pO2 ABG HCO3 ABG O2 Saturation ABG Base Excess ABG Hemoglobin Oxyhemoglobin Sodium Potassium 3.0 L Chloride Carbon Dioxide BUN Creatinine Glucose POC Glucose 190 H 211 H Hemoglobin A1c Lactic Acid Calcium Phosphorus Magnesium Ferritin AST ALT Alkaline Phosphatase Lactate Dehydrogenase Troponin T C-Reactive Protein Total Protein Albumin LDL Cholesterol Direct Urine Creatinine Urine Total Protein Salicylates Acetaminophen 11/08/21 11/08/21 11/09/21 21:34 21:40 00:36 WBC RBC Hgb Hct MCH RDW Plt Count Lymph % (Auto) Lymph # (Auto) [place] # (Auto) Seg Neutrophils % Seg Neuts % (Manual) Lymphocytes % (Manual) Nucleated RBC % Seg Neutrophils # Seg Neutrophils # Man Monocytes # (Manual) PT INR APTT D-Dimer Heparin Anti-Xa Level ABG pH ABG pO2 ABG HCO3 ABG O2 Saturation ABG Base Excess ABG Hemoglobin Oxyhemoglobin Sodium 148 H Potassium 2.8 L* Chloride Carbon Dioxide 31 H BUN 68 H Creatinine 1.5 H Glucose 191 H POC Glucose 194 H 140 H Hemoglobin A1c Lactic Acid Calcium 8.2 L Phosphorus Magnesium Ferritin AST ALT Alkaline Phosphatase Lactate Dehydrogenase Troponin T C-Reactive Protein Total Protein Albumin LDL Cholesterol Direct Urine Creatinine Urine Total Protein Salicylates Acetaminophen 11/09/21 11/09/21 11/09/21 04:51 04:51 04:51 WBC 27.6 H RBC 3.18 L Hgb 8.4 L Hct 26.6 L MCH 27 L RDW 15.3 H Plt Count Lymph % (Auto) Lymph # (Auto) [place] # (Auto) Seg Neutrophils % Seg Neuts % (Manual) Lymphocytes % (Manual) Nucleated RBC % Seg Neutrophils # Seg Neutrophils # Man Monocytes # (Manual) PT INR APTT D-Dimer Heparin Anti-Xa Level 0.18 L ABG pH ABG pO2 ABG HCO3 ABG O2 Saturation ABG Base Excess ABG Hemoglobin Oxyhemoglobin Sodium 148 H Potassium 2.7 L* Chloride Carbon Dioxide BUN 59 H Creatinine 1.4 H Glucose 143 H POC Glucose Hemoglobin A1c Lactic Acid Calcium 8.3 L Phosphorus Magnesium Ferritin AST ALT Alkaline Phosphatase Lactate Dehydrogenase Troponin T C-Reactive Protein Total Protein Albumin LDL Cholesterol Direct Urine Creatinine Urine Total Protein Salicylates Acetaminophen 11/09/21 11/09/21 11/09/21 05:52 08:45 11:00 WBC RBC Hgb Hct MCH RDW Plt Count Lymph % (Auto) Lymph # (Auto) [place] # (Auto) Seg Neutrophils % Seg Neuts % (Manual) Lymphocytes % (Manual) Nucleated RBC % Seg Neutrophils # Seg Neutrophils # Man Monocytes # (Manual) PT INR APTT D-Dimer Heparin Anti-Xa Level ABG pH ABG pO2 73.2 L ABG HCO3 33.8 H ABG O2 Saturation ABG Base Excess 8.7 H ABG Hemoglobin 8.5 L Oxyhemoglobin 94.1 L Sodium Potassium Chloride Carbon Dioxide BUN Creatinine Glucose POC Glucose 166 H 136 H Hemoglobin A1c Lactic Acid Calcium Phosphorus Magnesium Ferritin AST ALT Alkaline Phosphatase Lactate Dehydrogenase Troponin T C-Reactive Protein Total Protein Albumin LDL Cholesterol Direct Urine Creatinine Urine Total Protein Salicylates Acetaminophen 11/09/21 11/09/21 11/09/21 15:48 16:10 20:31 WBC RBC Hgb Hct MCH RDW Plt Count Lymph % (Auto) Lymph # (Auto) [place] # (Auto) Seg Neutrophils % Seg Neuts % (Manual) Lymphocytes % (Manual) Nucleated RBC % Seg Neutrophils # Seg Neutrophils # Man Monocytes # (Manual) PT INR APTT D-Dimer Heparin Anti-Xa Level ABG pH ABG pO2 ABG HCO3 ABG O2 Saturation ABG Base Excess ABG Hemoglobin Oxyhemoglobin Sodium Potassium 2.8 L* Chloride Carbon Dioxide 31 H BUN 53 H Creatinine 1.3 H Glucose 208 H POC Glucose 203 H 166 H Hemoglobin A1c Lactic Acid Calcium 7.9 L Phosphorus Magnesium Ferritin AST ALT Alkaline Phosphatase Lactate Dehydrogenase Troponin T C-Reactive Protein Total Protein Albumin LDL Cholesterol Direct Urine Creatinine Urine Total Protein Salicylates Acetaminophen 11/09/21 11/09/21 11/09/21 21:30 23:16 Unknown WBC RBC Hgb Hct MCH RDW Plt Count Lymph % (Auto) Lymph # (Auto) [place] # (Auto) Seg Neutrophils % Seg Neuts % (Manual) Lymphocytes % (Manual) Nucleated RBC % Seg Neutrophils # Seg Neutrophils # Man Monocytes # (Manual) PT INR APTT D-Dimer Heparin Anti-Xa Level 0.24 L ABG pH ABG pO2 ABG HCO3 ABG O2 Saturation ABG Base Excess ABG Hemoglobin Oxyhemoglobin Sodium Potassium Chloride Carbon Dioxide BUN 52 H Creatinine 1.4 H Glucose 185 H POC Glucose 172 H Hemoglobin A1c Lactic Acid Calcium 7.8 L Phosphorus Magnesium Ferritin AST ALT Alkaline Phosphatase Lactate Dehydrogenase Troponin T C-Reactive Protein Total Protein Albumin LDL Cholesterol Direct Urine Creatinine Urine Total Protein Salicylates Acetaminophen 11/10/21 11/10/21 11/10/21 02:00 04:17 04:17 WBC 24.5 H RBC 2.75 L Hgb 7.5 L Hct 22.9 L MCH 27 L RDW Plt Count Lymph % (Auto) Lymph # (Auto) [place] # (Auto) Seg Neutrophils % Seg Neuts % (Manual) Lymphocytes % (Manual) Nucleated RBC % Seg Neutrophils # Seg Neutrophils # Man Monocytes # (Manual) PT INR APTT D-Dimer Heparin Anti-Xa Level 0.26 L ABG pH ABG pO2 ABG HCO3 ABG O2 Saturation ABG Base Excess ABG Hemoglobin Oxyhemoglobin Sodium Potassium 2.9 L* Chloride Carbon Dioxide 35 H BUN 48 H Creatinine Glucose 212 H POC Glucose Hemoglobin A1c Lactic Acid Calcium 8.1 L Phosphorus Magnesium Ferritin AST ALT Alkaline Phosphatase Lactate Dehydrogenase Troponin T C-Reactive Protein Total Protein Albumin LDL Cholesterol Direct Urine Creatinine Urine Total Protein Salicylates Acetaminophen 11/10/21 11/10/21 11/10/21 05:01 08:39 11:03 WBC RBC Hgb Hct MCH RDW Plt Count Lymph % (Auto) Lymph # (Auto) [place] # (Auto) Seg Neutrophils % Seg Neuts % (Manual) Lymphocytes % (Manual) Nucleated RBC % Seg Neutrophils # Seg Neutrophils # Man Monocytes # (Manual) PT INR APTT D-Dimer Heparin Anti-Xa Level 0.12 L ABG pH ABG pO2 ABG HCO3 ABG O2 Saturation ABG Base Excess ABG Hemoglobin Oxyhemoglobin Sodium Potassium Chloride Carbon Dioxide BUN Creatinine Glucose POC Glucose 203 H 152 H Hemoglobin A1c Lactic Acid Calcium Phosphorus Magnesium Ferritin AST ALT Alkaline Phosphatase Lactate Dehydrogenase Troponin T C-Reactive Protein Total Protein Albumin LDL Cholesterol Direct Urine Creatinine Urine Total Protein Salicylates Acetaminophen 11/10/21 11/10/21 11/10/21 12:45 15:43 21:05 WBC RBC Hgb Hct MCH RDW Plt Count Lymph % (Auto) Lymph # (Auto) [place] # (Auto) Seg Neutrophils % Seg Neuts % (Manual) Lymphocytes % (Manual) Nucleated RBC % Seg Neutrophils # Seg Neutrophils # Man Monocytes # (Manual) PT INR APTT D-Dimer Heparin Anti-Xa Level ABG pH ABG pO2 ABG HCO3 ABG O2 Saturation ABG Base Excess ABG Hemoglobin Oxyhemoglobin Sodium 146 H Potassium 3.3 L Chloride Carbon Dioxide 31 H BUN 43 H Creatinine Glucose 155 H POC Glucose 139 H 139 H Hemoglobin A1c Lactic Acid Calcium 8.3 L Phosphorus Magnesium Ferritin AST ALT Alkaline Phosphatase Lactate Dehydrogenase Troponin T C-Reactive Protein Total Protein Albumin LDL Cholesterol Direct Urine Creatinine Urine Total Protein Salicylates Acetaminophen 11/10/21 11/11/21 11/11/21 23:25 03:49 03:49 WBC 22.1 H RBC 2.69 L Hgb 7.2 L Hct 22.7 L MCH 27 L RDW Plt Count Lymph % (Auto) Lymph # (Auto) [place] # (Auto) Seg Neutrophils % Seg Neuts % (Manual) Lymphocytes % (Manual) Nucleated RBC % Seg Neutrophils # Seg Neutrophils # Man Monocytes # (Manual) PT INR APTT D-Dimer Heparin Anti-Xa Level ABG pH ABG pO2 ABG HCO3 ABG O2 Saturation ABG Base Excess ABG Hemoglobin Oxyhemoglobin Sodium Potassium Chloride Carbon Dioxide 32 H BUN 44 H Creatinine 1.3 H Glucose 173 H POC Glucose 146 H Hemoglobin A1c Lactic Acid Calcium Phosphorus Magnesium Ferritin AST ALT Alkaline Phosphatase Lactate Dehydrogenase Troponin T C-Reactive Protein Total Protein Albumin LDL Cholesterol Direct Urine Creatinine Urine Total Protein Salicylates Acetaminophen 11/11/21 11/11/21 05:03 10:50 WBC RBC Hgb Hct MCH RDW Plt Count Lymph % (Auto) Lymph # (Auto) [place] # (Auto) Seg Neutrophils % Seg Neuts % (Manual) Lymphocytes % (Manual) Nucleated RBC % Seg Neutrophils # Seg Neutrophils # Man Monocytes # (Manual) PT INR APTT D-Dimer Heparin Anti-Xa Level ABG pH ABG pO2 ABG HCO3 ABG O2 Saturation ABG Base Excess ABG Hemoglobin Oxyhemoglobin Sodium Potassium Chloride Carbon Dioxide BUN Creatinine Glucose POC Glucose 152 H 129 H Hemoglobin A1c Lactic Acid Calcium Phosphorus Magnesium Ferritin AST ALT Alkaline Phosphatase Lactate Dehydrogenase Troponin T C-Reactive Protein Total Protein Albumin LDL Cholesterol Direct Urine Creatinine Urine Total Protein Salicylates Acetaminophen
--- NOTE | 2021-11-11 11:36 | Progress Note ---
<SHAMEKA JOHNSTON - Last Filed: 11/11/21 15:22> Assessment and Plan Assessment and plan: This is a 66-year-old female with past medical history of HTN and Obesity admitted for septic shock, s/p cardiac arrest with ROSC in the field now intubated and on ventilatory support Hospital Course to Date: 10/30: Intubated and sedated, on fentanyl gtt. Open eyes spontaneously but does not follow any commands. On vasopressors, titrate as tolerated for MAP above 65. Patient febrile overnight, continue empiric IV Abx, culture data and COVID PCR pending. Patient is also s/p CT placement due to spontaneous pneumothorax. 2D echo is pending and Cardiology is consulted. 10/31: Patient remains intubated and following commands. Levophed drip stopped and potassium repleted. Patient started on tube feeding. Remains in soft bilateral restraints. 11/01: RN noted ST changes on BSM and 12 lead EKG obtained which showed ST. Given Ativan 1mg for agitation as she is maxed on fentanyl drip and IV push fentanyl d id not seem to help. Patient was started on CPAP this morning by RT but remained on fentanyl drip and was having periods of apnea. Plan was to retry CPAP again in the p.m. with sedation off. 11/02: Rate increased r/t hypercapnea on ABG, sedation reduced. Given kionex for hyperkalemia and was started on levophed overnight for hypotension. 11/03: Overnight patient had tachycardia and was given Cardizem and Lopressor. Lopressor was repeated in the a.m. due to tachycardia. Patient will be started on amiodarone with a bolus per cardiology. Patient started on normal saline per liter per [facility] and steroids for angioedema. Noted to have bright red blood when suctioned from [place] ETT. Remains on heparin drip as H/H is stable for now. Will reevaluate. Fentanyl drip was restarted last night due to agitation. Dr. Flores updated family today 11/04: Patient was sedated on fentanyl however off sedation is able to follow commands, a.m. labs completed in the p.m. and show hyperkalemia with increased renal function studies. Nephrology, neurology consulted by [facility]. Given Kayexalate, insulin and D50 for hyperkalemia. Patient remains on amiodarone. 11/05: Patient needed to be sedated on fentanyl again to today. overnight krishna was replaced. Hyperkalemia->given kionex 60 for 5.6. Repeat K 6-> Dr. Grant informed and requested bumex, kionex, insulin, d50, calcium gluconate and sodium bicarb with repeat BMP in 2 hours which were placed. HR remains elevated. 11/06: Patient remained in atrial fibrillation/atrial flutter with heart rate in the 150s despite being on amnio drip and was given amnio bolus, Cardizem bolus and started on Cardizem drip by cardiology. Patient is on beta-blockers p.o. scheduled and to feedings changed to Nepro. Kayexalate was given in the morning by nephrology due to hyperkalemia. 11/07: Patient is only responsive to mild stimuli, precedex added in an attempt to wean off fentanyl gtt to better assess her mental status. Neurology also on consult, pending MRI and EEG. Patient remains in Aflutter this am, HR in the 80 to 90s, still on amiodarone and heparin gtt. 11/08: Fentanyl gtt is off, only on precedex gtt. Patient is still not following any commands. MRI brain and EEG completed. Neuro recommendations noted, sedatives agents decreased. FWF added for hypernatremia and low K repleted, repeat labs ordered. Placed a call and spoke with patient's daughter, Eva Brown . She was updated on patient's conditions and status. All questions and concerns were voiced at this time. 11/09: Patient is awake and alert this am, following commands and appropriate. Remains on precedex gtt, plan for possible PST today. Hypertensive overnight, meds adjusted by Cardio and PRN Hydralazine added for SBP greater than 160. CT dislodged overnight, CXR is stable with no significant change. F/U CXR in the am. Patient's daughter, Eva Brown, visited with patient. She was updated on patient's status and goal of care for today. All questions and concerns were voiced at this time. 11/10: Mentation remains intact, still on precedex gtt. This am CXR noted still with fluid overload s/p X1 dose of IV lasix, good response from IV lasix overnight. Hypernatremia improved, D5W d/dayday. Still with persistent hypokalemia, continue electrolytes replacement and frequent lab check. Daily IV lasix and aldactone added by Cardio. Patient is also with persistent low grade fevers overnight, leukocytosis with mild improvement this am. Will get a repeat sputum culture, hold off on IV abx for now. Consider ID consult if fevers and leukocytosis persist. Patient tolerated PST X4hrs yesterday. PST again today, plan to wean to extubate if tolerated. 11/11: IAM overnight. Off precedex gtt and tolerated PST this am. Plan to wean to extubate today. Additional IV lasix given, plan to keep patient at a net negative balance for better lung compliance. F/U CXR in the am. K improved this am, repeat BMP this afternoon since diuresing. Remains with low grade fevers, leukocytosis downtrending, will continue to monitor. Speech/PT/OT ordered Assessment and Plan #Hypertension #New Onset Atrial fibrillation/atrial flutter #HFrEF #s/p Cardiac Arrest with ROSC - Outside hospital cardiac arrest with ROSC - New onset Afib/Aflutter--> SR on the monitor this am - Cardiology consulted, appreciate recommendations - S/p Cardizem gtt- d/c due to low EF; now on PO Amio - 10/30 Echocardiogram shows left ventricular systolic function severely decreased, LVEF 25 to 30%, no pericardial effusion - Hypertensive overnight, meds adjusted by Cardio - PRN Hydralazive for SBP greater than 160 - Continue BB per Cardio - IV lasix and aldactone added - Continue blood pressure monitor per protocol - Strick I&Os and daily weight #Acute Hypoxemic Respiratory Failure #Spontaneous Pneumothorax s/p CT placement - Intubated in the filed post cardiac arrest on 10/29 - Vent Setting:CPAP-35%,8 PS-8 - This Am ABG pending - CCM consulted, appreciate recommendations - VAP bundle addressed - Aspiration precaution HOB above 30 - Daily SBT and SAT trials as tolerated - Daily ABG and CXR - Continue SPO2 monitoring for SPO2 goal above 92% #Acute Metabolic Encephalopathy - Awake and appropriate this am, following commands - Neurology on consult - EEG and MRI noted, Neuro recommend to cut down on sedation as possible - Continue to hold Seroquel - Avoid benzodiazepine to reduce the possibility of delirium - Prn analgesia for CPOT greater than 3 #Hypokalemia-improved #Acute Kidney Injury (SIERRA) most likely ATN - Due to hypoperfusion/hypotension and septic shock - Nephrology consulted, appreciate recommendations - Strict intake and output - Avoid nephrotoxic medications; Renally dose medications - Monitor and replace electrolytes as needed - Trend BMP #Septic Shock #Leukocytosis - s/p cardiac arrest with ROSC in the field - Presented febrile, with elevated lactic, leukocytosis, and hypotnesive required pressors - Blood culture, urine and sputum culture are negative - Patient completed X5days course of IV Abx - Persistent low grade fevers, WBCs with mild improvement - Repeat Sputum culture pending - Hold off on any IV Abx for now - Will continue to trend CBC #Acute BLE DVT - [place] [id number] on admit - CTA chest with no evidence of PE - 2/6 BLE doppler + acute DVT in the left posterior tibial vein and bilateral peroneal veins - Remains on Heparin gtt per protocol #Transaminitis #Shock liver - Most likely reactive s/p cardiac arrest - LFT down trending - Continue to trend LTFs #Hyperglycemia - Hbg A1C 6.7 - Continue SSI and lantus qHS - Avoid Hypoglycemia The high probability of a clinically significant, sudden or life threatening deterioration of the [multiple] system(s) required my full and direct attention, intervention and personal management. The aggregate critical care time was [60] minutes. This time is in addition to time spent performing reported procedures but includes the following: [x] Data Review and interpretation [x] Patient assessment and monitoring of vital signs [x] Documentation [x] Medication orders and management Disposition Plan: ICU Total Time Spent with Patient (Minutes): 60 History Interval history: Patient seen and examined at the bedside. Remains intubated, awake and alert this am, following commands. off precedex gtt. IAM overnight Hospitalist Physical - Constitutional Vitals: Temp Pulse Resp BP Pulse Ox 100.8 F H 83 24 138/71 99 11/11/21 11:24 11/11/21 11:27 11/11/21 11:27 11/11/21 11:27 11/11/21 11:27 General appearance: Present: no acute distress, obese, other (Intubated ) - EENT Eyes: Present: PERRL ENT: hearing intact - Neck Neck: Present: normal ROM - Respiratory Respiratory effort: normal Respiratory: bilateral: rhonchi - Cardiovascular Rhythm: regular Heart Sounds: Present: S1 & S2 - Extremities Extremities: no ischemia, pulses intact, pulses symmetrical Extremity abnormal: edema - Peripheral Assessment Generalized Edema Type: Non-pitting Edema Degree: 2+ Capillary Refill: < 3 seconds Skin Temperature: Warm Peripheral Pulses: within normal limits - Abdominal General gastrointestinal: soft, non-distended, normal bowel sounds - Integumentary Integumentary: Present: warm, dry - Psychiatric Psychiatric: appropriate mood/affect, cooperative - Neurologic Neurologic: moves all extremities - Allied Health Allied health notes reviewed: nursing, case management HEART Score - HEART Score Troponin: Troponin T 1.150 ng/mL (0.00-0.029) H* D 10/29/21 22:34 Results - Labs CBC & Chem 7: 11/11/21 03:49 11/11/21 03:49 Labs: Laboratory Last Values WBC 22.1 K/mm3 (4.5-11.0) H 11/11/21 03:49 RBC 2.69 M/mm3 (3.65-5.03) L 11/11/21 03:49 Hgb 7.2 gm/dl (10.1-14.3) L 11/11/21 03:49 Hct 22.7 % (30.3-42.9) L 11/11/21 03:49 MCV 85 fl (79-97) 11/11/21 03:49 MCH 27 pg (28-32) L 11/11/21 03:49 MCHC 32 % (30-34) 11/11/21 03:49 RDW 15.2 % (13.2-15.2) 11/11/21 03:49 Plt Count 241 K/mm3 (140-440) 11/11/21 03:49 Lymph % (Auto) 6.2 % (13.4-35.0) L 10/30/21 04:30 [place] % (Auto) 5.5 % (0.0-7.3) 10/30/21 04:30 Eos % (Auto) 0.1 % (0.0-4.3) 10/30/21 04:30 Baso % (Auto) 0.1 % (0.0-1.8) 10/30/21 04:30 Lymph # (Auto) 1.0 K/mm3 (1.2-5.4) L 10/30/21 04:30 [place] # (Auto) 0.9 K/mm3 (0.0-0.8) H 10/30/21 04:30 Eos # (Auto) 0.0 K/mm3 (0.0-0.4) 10/30/21 04:30 Baso # (Auto) 0.0 K/mm3 (0.0-0.1) 10/30/21 04:30 Add Manual Diff Complete 11/07/21 06:30 Total Counted 100 11/07/21 06:30 Seg Neutrophils % 88.1 % (40.0-70.0) H 10/30/21 04:30 Seg Neuts % (Manual) 77.0 % (40.0-70.0) H 11/07/21 06:30 Band Neutrophils % 1.0 % 11/07/21 06:30 Lymphocytes % (Manual) 11.0 % (13.4-35.0) L 11/07/21 06:30 Reactive Lymphs % (Man) 3.0 % 11/07/21 06:30 Monocytes % (Manual) 2.0 % (0.0-7.3) 11/07/21 06:30 Eosinophils % (Manual) 0 % (0.0-4.3) 11/07/21 06:30 Basophils % (Manual) 0 % (0.0-1.8) 11/07/21 06:30 Metamyelocytes % 1.0 % 11/07/21 06:30 Myelocytes % 5.0 % 11/07/21 06:30 Promyelocytes % 0 % 11/07/21 06:30 Blast Cells % 0 % 11/07/21 06:30 Nucleated RBC % 2.0 % (0.0-0.9) H 11/07/21 06:30 Seg Neutrophils # 14.2 K/mm3 (1.8-7.7) H 10/30/21 04:30 Seg Neutrophils # Man 12.3 K/mm3 (1.8-7.7) H 11/07/21 06:30 Band Neutrophils # 0.2 K/mm3 11/07/21 06:30 Lymphocytes # (Manual) 1.8 K/mm3 (1.2-5.4) 11/07/21 06:30 Abs React Lymphs (Man) 0.5 K/mm3 11/07/21 06:30 Monocytes # (Manual) 0.3 K/mm3 (0.0-0.8) 11/07/21 06:30 Eosinophils # (Manual) 0.0 K/mm3 (0.0-0.4) 11/07/21 06:30 Basophils # (Manual) 0.0 K/mm3 (0.0-0.1) 11/07/21 06:30 Metamyelocytes # 0.2 K/mm3 11/07/21 06:30 Myelocytes # 0.8 K/mm3 11/07/21 06:30 Promyelocytes # 0.0 K/mm3 11/07/21 06:30 Blast Cells # 0.0 K/mm3 11/07/21 06:30 WBC Morphology Not Reportable 11/07/21 06:30 Hypersegmented Neuts Not Reportable 11/07/21 06:30 Hyposegmented Neuts Not Reportable 11/07/21 06:30 Hypogranular Neuts Not Reportable 11/07/21 06:30 Smudge Cells Not Reportable 11/07/21 06:30 Toxic Granulation Not Reportable 11/07/21 06:30 Toxic Vacuolation Not Reportable 11/07/21 06:30 Dohle Bodies Not Reportable 11/07/21 06:30 Pelger-Huet Anomaly Not Reportable 11/07/21 06:30 Manny Rods Not Reportable 11/07/21 06:30 Platelet Estimate Consistent w auto 11/07/21 06:30 Clumped Platelets Not Reportable 11/07/21 06:30 Plt Clumps, EDTA Not Reportable 11/07/21 06:30 Large Platelets 1+ 11/07/21 06:30 Giant Platelets Not Reportable 11/07/21 06:30 Platelet Satelliting Not Reportable 11/07/21 06:30 Plt Morphology Comment Not Reportable 11/07/21 06:30 RBC Morphology Not Reportable 11/07/21 06:30 Dimorphic RBCs Not Reportable 11/07/21 06:30 Polychromasia Not Reportable 11/07/21 06:30 Hypochromasia 1+ 11/07/21 06:30 Poikilocytosis Not Reportable 11/07/21 06:30 Anisocytosis Not Reportable 11/07/21 06:30 Microcytosis Not Reportable 11/07/21 06:30 Macrocytosis Not Reportable 11/07/21 06:30 Spherocytes 1+ 11/07/21 06:30 Pappenheimer Bodies Not Reportable 11/07/21 06:30 Sickle Cells Not Reportable 11/07/21 06:30 Target Cells 1+ 11/07/21 06:30 Tear Drop Cells Not Reportable 11/07/21 06:30 Ovalocytes Not Reportable 11/07/21 06:30 Helmet Cells Not Reportable 11/07/21 06:30 Maradiaga-Sheridan Bodies Not Reportable 11/07/21 06:30 [place] Rings Not Reportable 11/07/21 06:30 [place] Cells Not Reportable 11/07/21 06:30 Bite Cells Not Reportable 11/07/21 06:30 Crenated Cell Not Reportable 11/07/21 06:30 Elliptocytes Not Reportable 11/07/21 06:30 Acanthocytes (Spur) Not Reportable 11/07/21 06:30 Rouleaux Not Reportable 11/07/21 06:30 Hemoglobin C Crystals Not Reportable 11/07/21 06:30 Schistocytes Not Reportable 11/07/21 06:30 Malaria parasites Not Reportable 11/07/21 06:30 Magdy Bodies Not Reportable 11/07/21 06:30 Hem Pathologist Commnt No 11/07/21 06:30 PT 17.2 Sec. (12.2-14.9) H 10/30/21 16:30 INR 1.27 (0.87-1.13) H 10/30/21 16:30 APTT 44.4 Sec. (24.2-36.6) H 10/30/21 16:30 D-Dimer > 63335 ng/mlDDU (0-234) H 10/30/21 Unknown Heparin Anti-Xa Level 0.43 U.I./ml (0.3-0.7) 11/10/21 18:15 ABG pH 7.447 pH Units (7.350-7.450) 11/09/21 08:45 ABG pCO2 50.0 mm Hg 11/09/21 08:45 ABG pO2 73.2 mm Hg (80.0-90.0) L 11/09/21 08:45 ABG HCO3 33.8 mmol/L (20.0-26.0) H 11/09/21 08:45 ABG O2 Saturation 96.0 % (95.0-99.0) 11/09/21 08:45 ABG O2 Content 11.3 (0.0-44) 11/09/21 08:45 ABG Base Excess 8.7 mmol/L (-2.0-3.0) H 11/09/21 08:45 ABG Hemoglobin 8.5 gm/dl (12.0-16.0) L 11/09/21 08:45 ABG Carboxyhemoglobin 1.5 % (0.0-5.0) 11/09/21 08:45 ABG Methemoglobin 0.5 % (0.0-1.5) 11/09/21 08:45 Oxyhemoglobin 94.1 % (95.0-99.0) L 11/09/21 08:45 FiO2 35 % 11/09/21 08:45 Sodium 145 mmol/L (137-145) 11/11/21 03:49 Potassium 3.8 mmol/L (3.6-5.0) 11/11/21 03:49 Chloride 106.3 mmol/L (98-107) 11/11/21 03:49 Carbon Dioxide 32 mmol/L (22-30) H 11/11/21 03:49 Anion Gap 11 mmol/L 11/11/21 03:49 BUN 44 mg/dL (7-17) H 11/11/21 03:49 Creatinine 1.3 mg/dL (0.6-1.2) H 11/11/21 03:49 Estimated GFR 49 ml/min 11/11/21 03:49 BUN/Creatinine Ratio 34 % 11/11/21 03:49 Glucose 173 mg/dL (65-100) H 11/11/21 03:49 POC Glucose 129 mg/dL (70-105) H 11/11/21 10:50 Hemoglobin A1c 6.7 % (4-6) H 10/31/21 04:30 Lactic Acid 0.70 mmol/L (0.7-2.0) 10/31/21 15:45 Calcium 8.5 mg/dL (8.4-10.2) 11/11/21 03:49 Phosphorus 3.60 mg/dL (2.5-4.5) 11/11/21 03:49 Magnesium 2.20 mg/dL (1.7-2.3) 11/11/21 03:49 Ferritin 208.4 ng/mL (10.0-200.0) H 10/30/21 Unknown Total Bilirubin < 0.20 mg/dL (0.1-1.2) 11/06/21 02:35 AST 21 units/L (5-40) 11/06/21 02:35 ALT 77 units/L (7-56) H 11/06/21 02:35 Alkaline Phosphatase 84 units/L (35-129) 11/06/21 02:35 Ammonia 31.0 umol/L (25-60) 10/29/21 15:10 Lactate Dehydrogenase 469 units/L (91-180) H 10/30/21 Unknown Troponin T 1.150 ng/mL (0.00-0.029) H* D 10/29/21 22:34 C-Reactive Protein 13.40 mg/dL (0.00-1.30) H 10/30/21 Unknown Total Protein 6.3 g/dL (6.3-8.2) 11/06/21 02:35 Albumin 3.0 g/dL (3.9-5) L 11/06/21 02:35 Albumin/Globulin Ratio 0.9 % 11/06/21 02:35 Triglycerides 68 mg/dL (2-149) 10/29/21 19:40 Cholesterol 98 mg/dL (50-199) 10/29/21 19:40 LDL Cholesterol Direct 43 mg/dL (50-130) L 10/29/21 19:40 HDL Cholesterol 50 mg/dL (40-59) 10/29/21 19:40 Cholesterol/HDL Ratio 1.96 % 10/29/21 19:40 Procalcitonin 61.95 ng/mL (<0.15) 10/30/21 Unknown TSH 3.080 mlU/mL (0.270-4.200) 10/29/21 15:10 Urine Color Straw (Yellow) 10/29/21 18:15 Urine Turbidity Clear (Clear) 10/29/21 18:15 Urine pH 7.0 (5.0-7.0) 10/29/21 18:15 Ur Specific [place] 1.018 (1.003-1.030) 10/29/21 18:15 Urine Protein 100 mg/dl mg/dL (Negative) 10/29/21 18:15 Urine Glucose (UA) 150 mg/dL (Negative) 10/29/21 18:15 Urine Ketones Neg mg/dL (Negative) 10/29/21 18:15 Urine Blood Mod (Negative) 10/29/21 18:15 Urine Nitrite Neg (Negative) 10/29/21 18:15 Urine Bilirubin Neg (Negative) 10/29/21 18:15 Urine Urobilinogen < 2.0 mg/dL (<2.0) 10/29/21 18:15 Ur Leukocyte Esterase Neg (Negative) 10/29/21 18:15 Urine WBC (Auto) 5.0 /HPF (0.0-6.0) 10/29/21 18:15 Urine RBC (Auto) 2.0 /HPF (0.0-6.0) 10/29/21 18:15 U Epithel Cells (Auto) < 1.0 /HPF (0-13.0) 10/29/21 18:15 Urine Mucus Few /HPF 10/29/21 18:15 Urine Eosinophils None seen (None Seen) 11/04/21 Unknown Urine Creatinine 190.9 mg/dL (0.1-20.0) H 11/04/21 Unknown Protein/Creatinin Ratio 0.90 11/04/21 Unknown Urine Sodium 10 mmol/L 11/04/21 Unknown Urine Total Protein 172 mg/dL (5-11.8) H 11/04/21 Unknown Salicylates < 0.3 mg/dL (2.8-20.0) L 10/29/21 15:10 Urine Opiates Screen Negative 10/29/21 18:15 Urine Methadone Screen Negative 10/29/21 18:15 Acetaminophen 5.0 ug/mL (10.0-30.0) L 10/29/21 15:10 Ur Barbiturates Screen Negative 10/29/21 18:15 Ur Phencyclidine Scrn Negative 10/29/21 18:15 Ur Amphetamines Screen Negative 10/29/21 18:15 U Benzodiazepines Scrn Negative 10/29/21 18:15 Urine Cocaine Screen Negative 10/29/21 18:15 U Marijuana (THC) Screen Negative 10/29/21 18:15 Drugs of Abuse Note Disclamer 10/29/21 18:15 Plasma/Serum Alcohol < 0.01 % (0-0.07) 10/29/21 15:10 Coronavirus (PCR) Negative (Negative) 10/30/21 Unknown Blood Type O POSITIVE 10/29/21 15:10 Antibody Screen Negative 10/29/21 15:10 Microbiology: Microbiology 11/10/21 11:12 Tracheal Aspirate Sputum Culture - Preliminary Krishna/IV: Voiding Method Indwelling Catheter Active Medications - Current Medications Current Medications: Generic Name Dose Route Start Last Admin Trade Name Freq PRN Reason Stop Dose Admin Acetaminophen 650 mg 10/29/21 17:04 11/10/21 21:03 Acetaminophen 325 Mg Tab PO 650 mg Q6H PRN Administration Pain, Mild (1-3) Acetaminophen 650 mg 10/29/21 17:04 Acetaminophen 650 Mg Rect Supp [place] Q6H PRN Pain MILD(1-3)/Fever >100.5/NIEVES Amiodarone HCl 200 mg 11/08/21 10:00 11/11/21 10:23 Amiodarone 200 Mg Tab PO 200 mg QDAY RAMON Administration Lipase/Protease/Amylase 1 each 10/31/21 08:56 Lipase 10,500/Protease 25,000/Amylase 43,750 (Units) Dr Ivory FEEDTUBE PRN PRN For Clogged Feeding Tube Dextrose 0 ml 11/04/21 13:48 11/05/21 15:29 Dextrose 10% *Hypoglycemia IV 250 ml PRN PRN Administration Hypoglycemia Famotidine 10 mg 11/06/21 10:00 11/11/21 10:20 Famotidine 10 Mg Tab PO 10 mg BID RAMON Administration Fentanyl 50 mcg 11/04/21 14:32 11/09/21 00:01 Fentanyl 100 Mcg/2 Ml Inj IV 50 mcg Q2H PRN Administration Pain, Moderate (4-6) Furosemide 40 mg 11/10/21 10:00 11/11/21 10:23 Furosemide 40 Mg Tab PO 40 mg QDAY RAMON Administration Furosemide 40 mg 11/11/21 12:00 Furosemide 40 Mg/4 Ml Inj IV 11/11/21 12:01 ONCE ONE Heparin Sodium (Porcine) 4,300 unit 10/30/21 17:00 Heparin 10,000 Units/10 Ml Vial 40 unit/kg (4300 unit) IV Q6H PRN Anti-Xa Assay < 0.1 units/ml Hydralazine HCl 50 mg 11/09/21 14:00 11/10/21 21:12 Hydralazine 25 Mg Tab PO 50 mg Q8HR RAMON Administration Hydralazine HCl 10 mg 11/09/21 13:05 Hydralazine 20 Mg/1 Ml Inj IV Q4HR PRN Hypertension Hydrophilic Ointment 1 applic 10/29/21 14:29 11/09/21 08:51 Lip Therapy Vaseline TP 1 applic Q2HR PRN Administration Dry Lips NORepinephrine/NS 8 MG-250 ML 8 mg in 250 mls @ 3.75 mls/hr 10/29/21 15:00 11/04/21 07:00 Norepinephrine/Ns 8 Mg-250 Ml (Double Conc) IV 0 mcg/min TITRATE RAMON 0 mls/hr Titration Protocol 2 MCG/MIN Heparin Sodium/Sodium Chloride 25,000 unit in 500 mls @ 30 mls/hr 10/30/21 17:00 11/11/21 01:10 Heparin/ 0.45% Nacl-25,000 Unit/500 Ml IV 1,900 units/hr TITR RAMON 38 mls/hr Administration Protocol 1,500 UNITS/HR Dexmedetomidine HCl 200 mcg/ 50 mls @ 5.335 mls/hr 11/07/21 15:00 11/11/21 05:41 Sodium Chloride IV 0.9 mcg/kg/hr TITRATE RAMON 24.008 mls/hr Administration Protocol 0.2 MCG/KG/HR Insulin Glargine 20 units 11/10/21 22:00 11/10/21 21:10 Insulin Glargine 100 Units/Ml SUB-Q 20 units QHS RAMON Administration Insulin Human Lispro 0 unit 10/30/21 16:00 11/11/21 00:33 Insulin Lispro 100 Unit/Ml SUB-Q Not Given Q6HR [facility] Protocol Isosorbide Mononitrate 30 mg 11/08/21 10:00 11/11/21 10:21 Isosorbide Mononitrate Er 30 Mg Tab PO 30 mg QDAY RAMON Administration Metoprolol Tartrate 50 mg 11/07/21 12:00 11/11/21 00:43 Metoprolol Tartrate 50 Mg Tab FEEDTUBE 50 mg Q6H RAMON Administration Multi-Ingred Cream/Lotion/Oil/Oint 1 applic 10/29/21 14:29 11/06/21 09:25 Mineral Oil/Petrolatum, White Ophth Oint 3.5 Gm OU 1 applic Q4HR PRN Administration Dry Eye(s) Potassium Chloride 40 meq 11/10/21 22:00 11/11/21 10:20 Potassium Chloride 20 Meq Packet FEEDTUBE 11/11/21 22:01 40 meq BID RAMON Administration Senna/Docusate Sodium 1 tab 10/29/21 15:00 11/11/21 10:22 Sennosides/Docusate Sodium 8.6/50 Mg Tab FEEDTUBE 1 tab BID RAMON Administration Simple Syrup 15 ml 10/31/21 08:56 Simple Syrup 15 Ml FEEDTUBE PRN PRN Hypoglycemia Simple Syrup 30 ml 10/31/21 08:56 Simple Syrup 15 Ml FEEDTUBE PRN PRN Hypoglycemia Sodium Bicarbonate 325 mg 10/31/21 08:56 Sodium Bicarbonate 325 Mg Tab FEEDTUBE PRN PRN For Clogged Feeding Tube Sodium Chloride 10 ml 10/29/21 22:00 11/11/21 10:36 Sodium Chloride 0.9% 10 Ml Flush Syringe IV 10 ml BID RAMON Administration Sodium Chloride 10 ml 10/29/21 17:04 Sodium Chloride 0.9% 10 Ml Flush Syringe IV PRN PRN LINE FLUSH Spironolactone 25 mg 11/10/21 10:00 11/11/21 10:22 Spironolactone 25 Mg Tab PO 25 mg QDAY RAMON Administration Nutrition/Malnutrition Assess - Dietary Evaluation Nutrition/Malnutrition Findings: Nutrition Notes Start: 10/30/21 09:50 Freq: Status: Active Protocol: Document 11/08/21 09:54 MEENU (Rec: 11/08/21 10:20 MEENU [id number]) Nutrition Notes Initial or Follow up Reassessment Current Diagnosis Acute Kidney Injury,Sepsis, Heart Failure,Respiratory Failure Other Pertinent Diagnosis SIERRA/ATN, s/p Cardiac Arrest, DVT, Anemia, Hyperkalemia. Current Diet TF-Nepro w/CARBSTEADY @ 37 ml/ hr (since D 11/06). Labs/Tests 11/08: Na 151, K 3.1, Cl 107.3 , CO2 31, BUN 82, Crea 1.8, Glu 232, Ca 8.1. Pertinent Medications 11/08: Insulin, others nutritionally unremarkable. Height 5 ft 10 in Weight 106.7 kg Morning Sun Body Weight (kg) 68.18 BMI 33.7 Weight change and time frame No body weight change reported in 1 week. Weight Status Obese Subjective/Other Information RD consult for routine F/U on TF tolerance. TF continues as prescribed and well tolerated, according to RN over the phone. Pt continues on Mechanical ventilation. Percent of energy/protein needs met: Prescribed Nepro w/CARBSTEADY @ 37 ml/hr provides for energy /protein needs (1,598 Kcal/72 g) during LOS, 100% Kcal; 100% AA. Burn Absent Trauma Absent GI Symptoms None Food Allergy No Skin Integrity/Comment Clear, warm, dry. Current % PO Other Minimum of two criteria No #1 Nutrition Diagnosis Inadequate oral intake Diagnosis Progress(for reassessment Continues documentation) Is patient on ventilator? Yes Is Patient Ambulatory and/or Out of Bed No REE-([facility]-confined to bed) 2022.848 Kcal/Kg value to use for calculation 15 Approximate Energy Requirements Using 1601 kcal/Kg Calculation Used for Recommendations Kcal/kg Additional Notes Protein: 0.8-1.2 g/Kg IBW; 70- 105 g/day. Fluids: 1 ml/Kcal, or as per MD. Nutrition Intervention Nutrition Support: Continue Nepro w/CARBSTEADY @ 37 ml/hr. Flush: 160 ml water Q 4 hr, or as per MD. Kcal 1,598 Protein (gm) 72 Carbohydrates (gm) 143 Fat (gm) 85 Fluid (mL) 646 Fiber (gm) 11 % RDI: 100% Kcal; 100% AA. Goal #1 Provide at least 75% of energy /protein needs through Enteral Feeding during LOS. Goal #2 Maintain body weight within +/ -3% of admission body weight during LOS. Follow-Up By: 11/15/21 Additional Comments Continue monitoring TF tolerance and BM. <ABRAM DIAS - Last Filed: 11/12/21 07:10> Assessment and Plan Assessment and plan: I saw and evaluated the patient. I agree with the findings and the plan of care as documented in the Nurse Practitioner's~note, with the following corrections and additions. Hospitalist Physical - Constitutional Vitals: Temp Pulse Resp BP Pulse Ox 98.9 F 60 22 153/78 100 11/12/21 03:21 11/12/21 06:00 11/12/21 06:00 11/12/21 06:00 11/12/21 06:00 HEART Score - HEART Score Troponin: Troponin T 1.150 ng/mL (0.00-0.029) H* D 10/29/21 22:34 Results - Labs CBC & Chem 7: 11/12/21 03:30 11/12/21 03:30 Labs: Laboratory Last Values WBC 17.7 K/mm3 (4.5-11.0) H 11/12/21 03:30 RBC 2.37 M/mm3 (3.65-5.03) L 11/12/21 03:30 Hgb 6.3 gm/dl (10.1-14.3) L 11/12/21 03:30 Hct 20.0 % (30.3-42.9) L 11/12/21 03:30 MCV 84 fl (79-97) 11/12/21 03:30 MCH 27 pg (28-32) L 11/12/21 03:30 MCHC 32 % (30-34) 11/12/21 03:30 RDW 15.5 % (13.2-15.2) H 11/12/21 03:30 Plt Count 256 K/mm3 (140-440) 11/12/21 03:30 Lymph % (Auto) 6.2 % (13.4-35.0) L 10/30/21 04:30 [place] % (Auto) 5.5 % (0.0-7.3) 10/30/21 04:30 Eos % (Auto) 0.1 % (0.0-4.3) 10/30/21 04:30 Baso % (Auto) 0.1 % (0.0-1.8) 10/30/21 04:30 Lymph # (Auto) 1.0 K/mm3 (1.2-5.4) L 10/30/21 04:30 [place] # (Auto) 0.9 K/mm3 (0.0-0.8) H 10/30/21 04:30 Eos # (Auto) 0.0 K/mm3 (0.0-0.4) 10/30/21 04:30 Baso # (Auto) 0.0 K/mm3 (0.0-0.1) 10/30/21 04:30 Add Manual Diff Complete 11/07/21 06:30 Total Counted 100 11/07/21 06:30 Seg Neutrophils % 88.1 % (40.0-70.0) H 10/30/21 04:30 Seg Neuts % (Manual) 77.0 % (40.0-70.0) H 11/07/21 06:30 Band Neutrophils % 1.0 % 11/07/21 06:30 Lymphocytes % (Manual) 11.0 % (13.4-35.0) L 11/07/21 06:30 Reactive Lymphs % (Man) 3.0 % 11/07/21 06:30 Monocytes % (Manual) 2.0 % (0.0-7.3) 11/07/21 06:30 Eosinophils % (Manual) 0 % (0.0-4.3) 11/07/21 06:30 Basophils % (Manual) 0 % (0.0-1.8) 11/07/21 06:30 Metamyelocytes % 1.0 % 11/07/21 06:30 Myelocytes % 5.0 % 11/07/21 06:30 Promyelocytes % 0 % 11/07/21 06:30 Blast Cells % 0 % 11/07/21 06:30 Nucleated RBC % 2.0 % (0.0-0.9) H 11/07/21 06:30 Seg Neutrophils # 14.2 K/mm3 (1.8-7.7) H 10/30/21 04:30 Seg Neutrophils # Man 12.3 K/mm3 (1.8-7.7) H 11/07/21 06:30 Band Neutrophils # 0.2 K/mm3 11/07/21 06:30 Lymphocytes # (Manual) 1.8 K/mm3 (1.2-5.4) 11/07/21 06:30 Abs React Lymphs (Man) 0.5 K/mm3 11/07/21 06:30 Monocytes # (Manual) 0.3 K/mm3 (0.0-0.8) 11/07/21 06:30 Eosinophils # (Manual) 0.0 K/mm3 (0.0-0.4) 11/07/21 06:30 Basophils # (Manual) 0.0 K/mm3 (0.0-0.1) 11/07/21 06:30 Metamyelocytes # 0.2 K/mm3 11/07/21 06:30 Myelocytes # 0.8 K/mm3 11/07/21 06:30 Promyelocytes # 0.0 K/mm3 11/07/21 06:30 Blast Cells # 0.0 K/mm3 11/07/21 06:30 WBC Morphology Not Reportable 11/07/21 06:30 Hypersegmented Neuts Not Reportable 11/07/21 06:30 Hyposegmented Neuts Not Reportable 11/07/21 06:30 Hypogranular Neuts Not Reportable 11/07/21 06:30 Smudge Cells Not Reportable 11/07/21 06:30 Toxic Granulation Not Reportable 11/07/21 06:30 Toxic Vacuolation Not Reportable 11/07/21 06:30 Dohle Bodies Not Reportable 11/07/21 06:30 Pelger-Huet Anomaly Not Reportable 11/07/21 06:30 Manny Rods Not Reportable 11/07/21 06:30 Platelet Estimate Consistent w auto 11/07/21 06:30 Clumped Platelets Not Reportable 11/07/21 06:30 Plt Clumps, EDTA Not Reportable 11/07/21 06:30 Large Platelets 1+ 11/07/21 06:30 Giant Platelets Not Reportable 11/07/21 06:30 Platelet Satelliting Not Reportable 11/07/21 06:30 Plt Morphology Comment Not Reportable 11/07/21 06:30 RBC Morphology Not Reportable 11/07/21 06:30 Dimorphic RBCs Not Reportable 11/07/21 06:30 Polychromasia Not Reportable 11/07/21 06:30 Hypochromasia 1+ 11/07/21 06:30 Poikilocytosis Not Reportable 11/07/21 06:30 Anisocytosis Not Reportable 11/07/21 06:30 Microcytosis Not Reportable 11/07/21 06:30 Macrocytosis Not Reportable 11/07/21 06:30 Spherocytes 1+ 11/07/21 06:30 Pappenheimer Bodies Not Reportable 11/07/21 06:30 Sickle Cells Not Reportable 11/07/21 06:30 Target Cells 1+ 11/07/21 06:30 Tear Drop Cells Not Reportable 11/07/21 06:30 Ovalocytes Not Reportable 11/07/21 06:30 Helmet Cells Not Reportable 11/07/21 06:30 Maradiaga-Sheridan Bodies Not Reportable 11/07/21 06:30 [place] Rings Not Reportable 11/07/21 06:30 [place] Cells Not Reportable 11/07/21 06:30 Bite Cells Not Reportable 11/07/21 06:30 Crenated Cell Not Reportable 11/07/21 06:30 Elliptocytes Not Reportable 11/07/21 06:30 Acanthocytes (Spur) Not Reportable 11/07/21 06:30 Rouleaux Not Reportable 11/07/21 06:30 Hemoglobin C Crystals Not Reportable 11/07/21 06:30 Schistocytes Not Reportable 11/07/21 06:30 Malaria parasites Not Reportable 11/07/21 06:30 Magdy Bodies Not Reportable 11/07/21 06:30 Hem Pathologist Commnt No 11/07/21 06:30 PT 17.2 Sec. (12.2-14.9) H 10/30/21 16:30 INR 1.27 (0.87-1.13) H 10/30/21 16:30 APTT 44.4 Sec. (24.2-36.6) H 10/30/21 16:30 D-Dimer > 15055 ng/mlDDU (0-234) H 10/30/21 Unknown Heparin Anti-Xa Level 0.62 U.I./ml (0.3-0.7) 11/12/21 03:30 ABG pH 7.475 pH Units (7.350-7.450) H 11/11/21 13:53 ABG pCO2 45.0 mm Hg 11/11/21 13:53 ABG pO2 64.1 mm Hg (80.0-90.0) L 11/11/21 13:53 ABG HCO3 32.4 mmol/L (20.0-26.0) H 11/11/21 13:53 ABG O2 Saturation 96.3 % (95.0-99.0) 11/11/21 13:53 ABG O2 Content 10.1 (0.0-44) 11/11/21 13:53 ABG Base Excess 8.0 mmol/L (-2.0-3.0) H 11/11/21 13:53 ABG Hemoglobin 7.6 gm/dl (12.0-16.0) L 11/11/21 13:53 ABG Carboxyhemoglobin 1.8 % (0.0-5.0) 11/11/21 13:53 ABG Methemoglobin 0.5 % (0.0-1.5) 11/11/21 13:53 Oxyhemoglobin 94.0 % (95.0-99.0) L 11/11/21 13:53 FiO2 32 % 11/11/21 13:53 Sodium 145 mmol/L (137-145) 11/12/21 03:30 Potassium 3.9 mmol/L (3.6-5.0) 11/12/21 03:30 Chloride 106.1 mmol/L (98-107) 11/12/21 03:30 Carbon Dioxide 33 mmol/L (22-30) H 11/12/21 03:30 Anion Gap 10 mmol/L 11/12/21 03:30 BUN 38 mg/dL (7-17) H 11/12/21 03:30 Creatinine 1.3 mg/dL (0.6-1.2) H 11/12/21 03:30 Estimated GFR 49 ml/min 11/12/21 03:30 BUN/Creatinine Ratio 29 % 11/12/21 03:30 Glucose 102 mg/dL (65-100) H 11/12/21 03:30 POC Glucose 81 mg/dL (70-105) 11/12/21 06:08 Hemoglobin A1c 6.7 % (4-6) H 10/31/21 04:30 Lactic Acid 0.70 mmol/L (0.7-2.0) 10/31/21 15:45 Calcium 8.2 mg/dL (8.4-10.2) L 11/12/21 03:30 Phosphorus 4.00 mg/dL (2.5-4.5) 11/12/21 03:30 Magnesium 1.90 mg/dL (1.7-2.3) 11/12/21 03:30 Ferritin 208.4 ng/mL (10.0-200.0) H 10/30/21 Unknown Total Bilirubin < 0.20 mg/dL (0.1-1.2) 11/06/21 02:35 AST 21 units/L (5-40) 11/06/21 02:35 ALT 77 units/L (7-56) H 11/06/21 02:35 Alkaline Phosphatase 84 units/L (35-129) 11/06/21 02:35 Ammonia 31.0 umol/L (25-60) 10/29/21 15:10 Lactate Dehydrogenase 469 units/L (91-180) H 10/30/21 Unknown Troponin T 1.150 ng/mL (0.00-0.029) H* D 10/29/21 22:34 C-Reactive Protein 13.40 mg/dL (0.00-1.30) H 10/30/21 Unknown Total Protein 6.3 g/dL (6.3-8.2) 11/06/21 02:35 Albumin 3.0 g/dL (3.9-5) L 11/06/21 02:35 Albumin/Globulin Ratio 0.9 % 11/06/21 02:35 Triglycerides 68 mg/dL (2-149) 10/29/21 19:40 Cholesterol 98 mg/dL (50-199) 10/29/21 19:40 LDL Cholesterol Direct 43 mg/dL (50-130) L 10/29/21 19:40 HDL Cholesterol 50 mg/dL (40-59) 10/29/21 19:40 Cholesterol/HDL Ratio 1.96 % 10/29/21 19:40 Procalcitonin 61.95 ng/mL (<0.15) 10/30/21 Unknown TSH 3.080 mlU/mL (0.270-4.200) 10/29/21 15:10 Urine Color Straw (Yellow) 10/29/21 18:15 Urine Turbidity Clear (Clear) 10/29/21 18:15 Urine pH 7.0 (5.0-7.0) 10/29/21 18:15 Ur Specific [place] 1.018 (1.003-1.030) 10/29/21 18:15 Urine Protein 100 mg/dl mg/dL (Negative) 10/29/21 18:15 Urine Glucose (UA) 150 mg/dL (Negative) 10/29/21 18:15 Urine Ketones Neg mg/dL (Negative) 10/29/21 18:15 Urine Blood Mod (Negative) 10/29/21 18:15 Urine Nitrite Neg (Negative) 10/29/21 18:15 Urine Bilirubin Neg (Negative) 10/29/21 18:15 Urine Urobilinogen < 2.0 mg/dL (<2.0) 10/29/21 18:15 Ur Leukocyte Esterase Neg (Negative) 10/29/21 18:15 Urine WBC (Auto) 5.0 /HPF (0.0-6.0) 10/29/21 18:15 Urine RBC (Auto) 2.0 /HPF (0.0-6.0) 10/29/21 18:15 U Epithel Cells (Auto) < 1.0 /HPF (0-13.0) 10/29/21 18:15 Urine Mucus Few /HPF 10/29/21 18:15 Urine Eosinophils None seen (None Seen) 11/04/21 Unknown Urine Creatinine 190.9 mg/dL (0.1-20.0) H 11/04/21 Unknown Protein/Creatinin Ratio 0.90 11/04/21 Unknown Urine Sodium 10 mmol/L 11/04/21 Unknown Urine Total Protein 172 mg/dL (5-11.8) H 11/04/21 Unknown Salicylates < 0.3 mg/dL (2.8-20.0) L 10/29/21 15:10 Urine Opiates Screen Negative 10/29/21 18:15 Urine Methadone Screen Negative 10/29/21 18:15 Acetaminophen 5.0 ug/mL (10.0-30.0) L 10/29/21 15:10 Ur Barbiturates Screen Negative 10/29/21 18:15 Ur Phencyclidine Scrn Negative 10/29/21 18:15 Ur Amphetamines Screen Negative 10/29/21 18:15 U Benzodiazepines Scrn Negative 10/29/21 18:15 Urine Cocaine Screen Negative 10/29/21 18:15 U Marijuana (THC) Screen Negative 10/29/21 18:15 Drugs of Abuse Note Disclamer 10/29/21 18:15 Plasma/Serum Alcohol < 0.01 % (0-0.07) 10/29/21 15:10 Coronavirus (PCR) Negative (Negative) 10/30/21 Unknown Blood Type O POSITIVE 10/29/21 15:10 Antibody Screen Negative 10/29/21 15:10 Microbiology: Microbiology 11/10/21 11:12 Tracheal Aspirate Sputum Culture - Preliminary Krishna/IV: Voiding Method Indwelling Catheter Active Medications - Current Medications Current Medications: Generic Name Dose Route Start Last Admin Trade Name Freq PRN Reason Stop Dose Admin Acetaminophen 650 mg 10/29/21 17:04 11/11/21 13:35 Acetaminophen 325 Mg Tab PO 650 mg Q6H PRN Administration Pain, Mild (1-3) Acetaminophen 650 mg 10/29/21 17:04 Acetaminophen 650 Mg Rect Supp [place] Q6H PRN Pain MILD(1-3)/Fever >100.5/NIEVES Amiodarone HCl 200 mg 11/08/21 10:00 11/11/21 10:23 Amiodarone 200 Mg Tab PO 200 mg QDAY RAMON Administration Lipase/Protease/Amylase 1 each 10/31/21 08:56 Lipase 10,500/Protease 25,000/Amylase 43,750 (Units) Dr Cap FEEDTUBE PRN PRN For Clogged Feeding Tube Dextrose 0 ml 11/04/21 13:48 11/12/21 05:45 Dextrose 10% *Hypoglycemia IV 50 ml PRN PRN Administration Hypoglycemia Famotidine 10 mg 11/06/21 10:00 11/11/21 21:09 Famotidine 10 Mg Tab PO Not Given BID [facility] Fentanyl 50 mcg 11/04/21 14:32 11/09/21 00:01 Fentanyl 100 Mcg/2 Ml Inj IV 50 mcg Q2H PRN Administration Pain, Moderate (4-6) Furosemide 40 mg 11/10/21 10:00 11/11/21 10:23 Furosemide 40 Mg Tab PO 40 mg QDAY [facility] Administration Heparin Sodium (Porcine) 4,300 unit 10/30/21 17:00 Heparin 10,000 Units/10 Ml Vial 40 unit/kg (4300 unit) IV Q6H PRN Anti-Xa Assay < 0.1 units/ml Hydralazine HCl 50 mg 11/09/21 14:00 11/11/21 21:06 Hydralazine 25 Mg Tab PO Not Given Q8HR [facility] Hydralazine HCl 10 mg 11/09/21 13:05 Hydralazine 20 Mg/1 Ml Inj IV Q4HR PRN Hypertension Hydrophilic Ointment 1 applic 10/29/21 14:29 11/09/21 08:51 Lip Therapy Vaseline TP 1 applic Q2HR PRN Administration Dry Lips NORepinephrine/NS 8 MG-250 ML 8 mg in 250 mls @ 3.75 mls/hr 10/29/21 15:00 11/04/21 07:00 Norepinephrine/Ns 8 Mg-250 Ml (Double Conc) IV 0 mcg/min TITRATE RAMON 0 mls/hr Titration Protocol 2 MCG/MIN Heparin Sodium/Sodium Chloride 25,000 unit in 500 mls @ 30 mls/hr 10/30/21 17:00 11/12/21 03:05 Heparin/ 0.45% Nacl-25,000 Unit/500 Ml IV 2,000 units/hr TITR RAMON 40 mls/hr Administration Protocol 1,500 UNITS/HR Dexmedetomidine HCl 400 mcg/ 100 mls @ 5.335 mls/hr 11/11/21 21:00 11/12/21 04:40 Sodium Chloride IV 0.6 mcg/kg/hr TITRATE RAMON 16.005 mls/hr Administration Protocol 0.2 MCG/KG/HR Insulin Glargine 20 units 11/12/21 22:00 Insulin Glargine 100 Units/Ml SUB-Q QHS [facility] Insulin Human Lispro 0 unit 10/30/21 16:00 11/11/21 18:00 Insulin Lispro 100 Unit/Ml SUB-Q Not Given Q6HR [facility] Protocol Isosorbide Mononitrate 30 mg 11/08/21 10:00 11/11/21 10:21 Isosorbide Mononitrate Er 30 Mg Tab PO 30 mg QDAY RAMON Administration Metoprolol Tartrate 50 mg 11/07/21 12:00 11/11/21 17:15 Metoprolol Tartrate 50 Mg Tab FEEDTUBE 50 mg Q6H RAMON Administration Multi-Ingred Cream/Lotion/Oil/Oint 1 applic 10/29/21 14:29 11/06/21 09:25 Mineral Oil/Petrolatum, White Ophth Oint 3.5 Gm OU 1 applic Q4HR PRN Administration Dry Eye(s) Senna/Docusate Sodium 1 tab 10/29/21 15:00 11/11/21 21:06 Sennosides/Docusate Sodium 8.6/50 Mg Tab FEEDTUBE Not Given BID RAMON Simple Syrup 15 ml 10/31/21 08:56 Simple Syrup 15 Ml FEEDTUBE PRN PRN Hypoglycemia Simple Syrup 30 ml 10/31/21 08:56 Simple Syrup 15 Ml FEEDTUBE PRN PRN Hypoglycemia Sodium Bicarbonate 325 mg 10/31/21 08:56 Sodium Bicarbonate 325 Mg Tab FEEDTUBE PRN PRN For Clogged Feeding Tube Sodium Chloride 10 ml 10/29/21 22:00 11/11/21 21:07 Sodium Chloride 0.9% 10 Ml Flush Syringe IV 10 ml BID RAMON Administration Sodium Chloride 10 ml 10/29/21 17:04 Sodium Chloride 0.9% 10 Ml Flush Syringe IV PRN PRN LINE FLUSH Spironolactone 25 mg 11/10/21 10:00 11/11/21 10:22 Spironolactone 25 Mg Tab PO 25 mg QDAY RAMON Administration Nutrition/Malnutrition Assess - Dietary Evaluation Nutrition/Malnutrition Findings: Nutrition Notes Start: 10/30/21 09:50 Freq: Status: Active Protocol: Document 11/08/21 09:54 MEENU (Rec: 11/08/21 10:20 MEENU [id number]) Nutrition Notes Initial or Follow up Reassessment Current Diagnosis Acute Kidney Injury,Sepsis, Heart Failure,Respiratory Failure Other Pertinent Diagnosis SIERRA/ATN, s/p Cardiac Arrest, DVT, Anemia, Hyperkalemia. Current Diet TF-Nepro w/CARBSTEADY @ 37 ml/ hr (since D 11/06). Labs/Tests 11/08: Na 151, K 3.1, Cl 107.3 , CO2 31, BUN 82, Crea 1.8, Glu 232, Ca 8.1. Pertinent Medications 11/08: Insulin, others nutritionally unremarkable. Height 5 ft 10 in Weight 106.7 kg Morning Sun Body Weight (kg) 68.18 BMI 33.7 Weight change and time frame No body weight change reported in 1 week. Weight Status Obese Subjective/Other Information RD consult for routine F/U on TF tolerance. TF continues as prescribed and well tolerated, according to RN over the phone. Pt continues on Mechanical ventilation. Percent of energy/protein needs met: Prescribed Nepro w/CARBSTEADY @ 37 ml/hr provides for energy /protein needs (1,598 Kcal/72 g) during LOS, 100% Kcal; 100% AA. Burn Absent Trauma Absent GI Symptoms None Food Allergy No Skin Integrity/Comment Clear, warm, dry. Current % PO Other Minimum of two criteria No #1 Nutrition Diagnosis Inadequate oral intake Diagnosis Progress(for reassessment Continues documentation) Is patient on ventilator? Yes Is Patient Ambulatory and/or Out of Bed No [facility] 2022.848 Kcal/Kg value to use for calculation 15 Approximate Energy Requirements Using 1601 kcal/Kg Calculation Used for Recommendations Kcal/kg Additional Notes Protein: 0.8-1.2 g/Kg IBW; 70- 105 g/day. Fluids: 1 ml/Kcal, or as per MD. Nutrition Intervention Nutrition Support: Continue Nepro w/CARBSTEADY @ 37 ml/hr. Flush: 160 ml water Q 4 hr, or as per MD. Kcal 1,598 Protein (gm) 72 Carbohydrates (gm) 143 Fat (gm) 85 Fluid (mL) 646 Fiber (gm) 11 % RDI: 100% Kcal; 100% AA. Goal #1 Provide at least 75% of energy /protein needs through Enteral Feeding during LOS. Goal #2 Maintain body weight within +/ -3% of admission body weight during LOS. Follow-Up By: 11/15/21 Additional Comments Continue monitoring TF tolerance and BM.
[2021-11-11] MEDS ORDERED: FUROSEMIDE 40 MG/4 ML INJ IV ONE (12:00)
--- NOTE | 2021-11-11 12:30 | Progress Note ---
Assessment and Plan Patient is a 66-year-old female with unknown past medical history brought into the ED following outside of hospital cardiac arrest thought to be PEA with thought to have downtime of 7 to 9 minutes however details are unclear S/P PEA cardiopulmonary arrest-No longer on pressors Acute hypoxic respiratory failure-pulm following Septic shock Aspiration pneumonia Atrial flutter w/ RVR- currently sinus rhythm Pneumothorax- s/p CT Acute DVT-on Heparin gtt Hypokalemia Transaminitis Echo 10/30/2021-technically difficult study due to body habitus. EF 25 to 30%. Right ventricular systolic function is normal. No pericardial effusion Plan: Continue metoprolol 50 mg p.o. every 6 hours, amio 200mg PO QD, Imdur 30mg PO QD, and hydralazine 50mg PO TID No LAYO/ ARB due to elevated creatinine Patient currently anticoagulated on heparin drip Continue Lasix 40 mg p.o. daily for diuresis Patient seen in conjunction with Dr. Archer who agrees with this plan of care - Patient Problems (1) Cardiopulmonary arrest Current Visit: Yes Status: Acute (2) Hypokalemia Current Visit: Yes Status: Acute (3) Transaminitis Current Visit: Yes Status: Acute (4) Aspiration pneumonia Current Visit: Yes Status: Acute (5) Acute hypoxemic respiratory failure Current Visit: Yes Status: Acute (6) Septic shock Current Visit: Yes Status: Acute (7) Toxic metabolic encephalopathy Current Visit: Yes Status: Acute (8) Shock liver Current Visit: Yes Status: Acute Subjective Date of service: 11/11/21 Principal diagnosis: AHRF; Cardiac arrest; R. pneumothorax; pneumonia; AMS; DVT's; SIERRA; Obesity Interval history: Patient remains intubated. Patient remain in sinus rhythm trending sinus 80s Objective Vital Signs Temp Pulse Pulse Resp BP Pulse Ox 11/11/21 11:38 84 130/79 11/11/21 11:27 83 24 138/71 99 11/11/21 11:24 100.8 F H 11/11/21 11:00 83 20 138/71 95 11/11/21 10:30 81 24 150/79 97 11/11/21 10:22 82 153/75 11/11/21 10:21 83 153/75 11/11/21 10:00 80 21 153/75 97 11/11/21 09:30 75 21 139/68 97 02/18/22 09:00 77 23 140/70 96 11/11/21 08:30 73 27 H 125/62 96 11/11/21 08:00 74 74 21 118/67 96 11/11/21 07:31 99.9 F H 11/11/21 07:30 68 17 122/68 98 11/11/21 07:16 69 107/71 100 11/11/21 07:00 71 16 107/71 99 11/11/21 06:30 68 17 106/64 100 11/11/21 06:00 67 15 106/64 98 11/11/21 05:30 66 16 116/60 96 11/11/21 05:00 67 17 140/72 100 11/11/21 04:30 70 16 140/72 97 11/11/21 04:00 68 70 14 127/64 97 11/11/21 03:30 71 21 131/64 98 11/11/21 03:24 99.3 F 11/11/21 03:00 64 15 121/64 97 11/11/21 02:30 65 15 118/62 97 11/11/21 02:00 67 15 118/64 97 11/11/21 01:30 70 18 129/66 97 11/11/21 01:00 70 19 125/64 97 11/11/21 00:44 68 70 18 98 11/11/21 00:43 68 135/81 11/11/21 00:30 76 15 126/64 99 11/11/21 00:20 76 8 L 126/64 99 11/11/21 00:00 67 17 126/64 97 11/10/21 23:48 99.5 F 11/10/21 23:30 68 22 124/64 98 11/10/21 23:08 65 17 121/62 99 11/10/21 23:00 65 17 121/62 98 11/10/21 22:30 66 17 117/61 98 11/10/21 22:03 19 11/10/21 22:00 67 18 114/59 97 11/10/21 21:30 70 19 126/69 98 11/10/21 21:12 69 125/72 11/10/21 21:06 69 14 98 11/10/21 21:03 16 11/10/21 21:00 67 18 125/72 96 11/10/21 20:43 99 F 70 20 99 11/10/21 20:30 70 19 137/80 97 11/10/21 20:13 67 2 L 127/65 100 11/10/21 20:00 65 16 120/63 99 11/10/21 19:38 99.3 F 11/10/21 19:30 63 16 117/61 98 11/10/21 19:00 67 17 123/66 96 11/10/21 18:30 67 15 128/65 97 11/10/21 18:24 67 127/65 11/10/21 18:00 66 67 15 127/65 98 11/10/21 17:30 68 17 128/65 98 11/10/21 17:00 67 22 110/63 99 11/10/21 16:30 66 15 131/69 100 11/10/21 16:06 99.7 F H 11/10/21 16:00 67 25 H 131/69 99 11/10/21 15:30 69 16 123/64 99 11/10/21 15:12 67 140/74 99 11/10/21 15:00 70 27 H 140/74 98 11/10/21 14:58 70 127/64 11/10/21 14:30 69 24 127/64 98 11/10/21 14:00 67 67 16 123/60 98 11/10/21 13:30 68 16 153/80 98 11/10/21 13:00 74 36 H 153/80 96 11/10/21 12:30 77 33 H 155/81 96 - Physical Examination General: Other (Intubated and sedated) HEENT: Positive: Normocephaly Neck: Positive: trachea midline Cardiac: Positive: Reg Rate and Rhythm Lungs: Positive: Ventilated Respirations Neuro: Positive: Other (sedated) Abdomen: Positive: Soft, Active Bowel Sounds Skin: Negative: Rash Musculoskeletal: No Fluid Collection Extremities: Present: edema - Labs and Meds CBC 11/11/21 Range/Units 03:49 WBC 22.1 H (4.5-11.0) K/mm3 RBC 2.69 L (3.65-5.03) M/mm3 Hgb 7.2 L (10.1-14.3) gm/dl Hct 22.7 L (30.3-42.9) % Plt Count 241 (140-440) K/mm3 Comprehensive Metabolic Panel 11/10/21 11/11/21 Range/Units 12:45 03:49 Sodium 146 H 145 (137-145) mmol/L Potassium 3.3 L 3.8 (3.6-5.0) mmol/L Chloride 106.3 106.3 (98-107) mmol/L Carbon Dioxide 31 H 32 H (22-30) mmol/L BUN 43 H 44 H (7-17) mg/dL Creatinine 1.2 1.3 H (0.6-1.2) mg/dL Glucose 155 H 173 H (65-100) mg/dL Calcium 8.3 L 8.5 (8.4-10.2) mg/dL - Imaging and Cardiology Echo: report reviewed - Telemetry EKG Rhythm: Sinus Rhythm - EKG Sinus rhythms and dysrhythmias: sinus rhythm Ventricular dysrhythmias: ventricular premature com - Allied health notes Allied health notes reviewed: RT
[2021-11-11] MEDS: hydrALAZINE 25 MG TAB PO SCH ×2 (13:35→21:06)
[2021-11-11] MEDS: ACETAMINOPHEN 325 MG TAB PO PRN (13:35)
[2021-11-11 13:57] LABS: ABG HCO3 32.4 mmol/L (20.0-26.0); ABG Methemoglobin 0.5 % (0.0-1.5); ABG Oxygen Saturation 96.3 % (95.0-99.0); ABG PH 7.475 pH Units (7.350-7.450); ABG PO2 64.1 mm Hg (80.0-90.0)
--- NOTE | 2021-11-11 14:30 | Progress Note ---
Assessment and Plan Acute hypoxemic respiratory failure on MVS Cardiac arrest with ROSC Acute DVT Right pneumothorax s/p pleural drain placement Shock (septic +/- cardiogenic) Possible aspiration pneumonia SIERRA Altered mental status/acute encephalopathy Elevated serum transaminases, likely ischemic hepatitis Metabolic acidosis Obesity Leukocytosis Lactic acidosis Diuretics, RSBI 110- patient is not ready for extubation. Place back on full support, keep negative balance. Plan for SBT in am and plan fro liberation Conservative fluid management as tolerated by hemodynamics, renal function - continue full anticoagulation with IV Heparin re: DVT - continue Daily SAT and SBT assessment as tolerated - continue to wean supplemental oxygen for target O2 sat's > 90% acutely - VAP bundle addressed - continue lung protective strategies - continue bronchodilators with pulmonary hygiene per RT - wean per pulmonary driven protocols otherwise - continue accuchecks with glycemic control per SSI (While critically ill target blood glucose of 140-180 mg/dL; avoid hypoglycemia) - sedation prn for target RASS 0 to -1 - avoid nephrotoxins, renally dose all medications - continue to avoid benzodiazepines , reduce the possibility of delirium - Antibiotics per ID recommendations - prn analgesia per CPOT score - Maintenance of sleep-wake cycle, avoid delirium - continue enteral nutritional support at goal rate as tolerated - G.I. & VTE prophylaxis - PT/OT/ROM exercises - continue mobility protocols for pressure ulcer prophylaxis - Monitor hemodynamics closely - continue other care per attending / other consultants - discharge planning ongoing concurrently COVID SPECIFIC INTERVENTIONS - COVID-19 PCR negative CONDITION: CRITICAL PROGNOSIS: GUARDED CODE STATUS: FULL CODE The high probability of a clinically significant, sudden or life-threatening deterioration of the [respiratory, cardiovascular, renal & neurologic] system(s) required my full and direct attention, intervention and personal management. The aggregate critical care time was [34] minutes without overlap. Time includes spent on; [x] Data Review and interpretation [x] Patient assessment and monitoring of vital signs [x] Documentation [x] Medication orders and management Subjective Date of service: 11/10/21 Principal diagnosis: AHRF; Cardiac arrest; R. pneumothorax; pneumonia; AMS; DVT's; SIERRA; Obesity Interval history: Patient is seen today for: Acute hypoxemic respiratory failure; Cardiac arrest with ROSC; Right pneumothorax; pneumonia; AMS; bilateral DVT's; SIERRA; Obesity Seen and examined at bedside; 24hour events reviewed; nursing and respiratory care staff consulted; no adverse overnight events reported to me; remains on MVS; no emesis or overt aspiration; secretions moderate; making urine; no adverse overnight events, Tolerated SBT yesterday but mental status precluded liberation from MVS. Remains positive fluid balance Objective Vital Signs - 12hr 11/11/21 11/11/21 11/11/21 02:30 03:00 03:24 Temperature 99.3 F Pulse Rate 65 64 Pulse Rate [ From Monitor] Respiratory 15 15 Rate Blood Pressure 118/62 121/64 O2 Sat by Pulse 97 97 Oximetry 11/11/21 11/11/21 11/11/21 03:30 04:00 04:30 Temperature Pulse Rate 71 68 70 Pulse Rate [ 70 From Monitor] Respiratory 21 14 16 Rate Blood Pressure 131/64 127/64 140/72 O2 Sat by Pulse 98 97 97 Oximetry 11/11/21 11/11/21 11/11/21 05:00 05:30 06:00 Temperature Pulse Rate 67 66 67 Pulse Rate [ From Monitor] Respiratory 17 16 15 Rate Blood Pressure 140/72 116/60 106/64 O2 Sat by Pulse 100 96 98 Oximetry 11/11/21 11/11/21 11/11/21 06:30 07:00 07:16 Temperature Pulse Rate 68 71 69 Pulse Rate [ From Monitor] Respiratory 17 16 Rate Blood Pressure 106/64 107/71 107/71 O2 Sat by Pulse 100 99 100 Oximetry 11/11/21 11/11/21 11/11/21 07:30 07:31 08:00 Temperature 99.9 F H Pulse Rate 68 74 Pulse Rate [ 74 From Monitor] Respiratory 17 21 Rate Blood Pressure 122/68 118/67 O2 Sat by Pulse 98 96 Oximetry 11/11/21 11/11/21 11/11/21 08:30 09:00 09:30 Temperature Pulse Rate 73 77 75 Pulse Rate [ From Monitor] Respiratory 27 H 23 21 Rate Blood Pressure 125/62 140/70 139/68 O2 Sat by Pulse 96 96 97 Oximetry 11/11/21 11/11/21 11/11/21 10:00 10:21 10:22 Temperature Pulse Rate 80 83 82 Pulse Rate [ From Monitor] Respiratory 21 Rate Blood Pressure 153/75 153/75 153/75 O2 Sat by Pulse 97 Oximetry 11/11/21 11/11/21 11/11/21 10:30 11:00 11:24 Temperature 100.8 F H Pulse Rate 81 83 Pulse Rate [ From Monitor] Respiratory 24 20 Rate Blood Pressure 150/79 138/71 O2 Sat by Pulse 97 95 Oximetry 11/11/21 11/11/21 11/11/21 11:27 11:30 11:38 Temperature Pulse Rate 83 83 84 Pulse Rate [ From Monitor] Respiratory 24 23 Rate Blood Pressure 138/71 130/79 130/79 O2 Sat by Pulse 99 Oximetry 11/11/21 11/11/21 11/11/21 12:00 12:30 12:34 Temperature Pulse Rate 81 116 H Pulse Rate [ 80 From Monitor] Respiratory 20 17 Rate Blood Pressure 133/72 122/86 O2 Sat by Pulse 98 93 95 Oximetry 11/11/21 11/11/21 11/11/21 12:47 13:00 13:35 Temperature Pulse Rate 117 H 80 Pulse Rate [ From Monitor] Respiratory 15 Rate Blood Pressure 122/86 149/72 O2 Sat by Pulse 94 98 Oximetry Constitutional: appears uncomfortable, other (elderly obese female with mildly increased respiratory effort at rest) Eyes: non-icteric, other (+ mild periorbital phymosis) ENT: oropharynx moist, oropharyngeal exudate pre (moderate), other (ETT 23 cm KRYSTAL) Neck: supple, no lymphadenopathy, no JVD Effort: mildly labored Ascultation: Bilateral: diminished breath sounds, rhonchi Percussion: Bilateral: not dull Cardiovascular: irregular rhythm, other (no R/M) Gastrointestinal: normoactive bowel sounds Integumentary: normal Extremities: no cyanosis, pulses normal, no ischemia or petechiae, edema Neurologic: non-focal exam (grossly), pupils equal and round, motor strength normal and (weak), unable to assess Psychiatric: other (unable to assess re: AMS) CBC and BMP: 11/11/21 03:49 11/11/21 03:49 ABG, PT/INR, D-dimer: ABG ABG pH 7.475 pH Units (7.350-7.450) H 11/11/21 13:53 ABG pCO2 45.0 mm Hg 11/11/21 13:53 ABG pO2 64.1 mm Hg (80.0-90.0) L 11/11/21 13:53 ABG O2 Saturation 96.3 % (95.0-99.0) 11/11/21 13:53 PT/INR, D-dimer PT 17.2 Sec. (12.2-14.9) H 10/30/21 16:30 INR 1.27 (0.87-1.13) H 10/30/21 16:30 D-Dimer > 96382 ng/mlDDU (0-234) H 10/30/21 Unknown Abnormal lab findings: Abnormal Labs 10/29/21 10/29/21 10/29/21 15:10 15:10 15:10 WBC 27.8 H RBC Hgb Hct MCH 27 L RDW Plt Count Lymph % (Auto) Lymph # (Auto) [place] # (Auto) Seg Neutrophils % Seg Neuts % (Manual) 78.0 H Lymphocytes % (Manual) 10.0 L Nucleated RBC % Seg Neutrophils # Seg Neutrophils # Man 21.7 H Monocytes # (Manual) 1.4 H PT INR APTT D-Dimer Heparin Anti-Xa Level ABG pH ABG pO2 ABG HCO3 ABG O2 Saturation ABG Base Excess ABG Hemoglobin Oxyhemoglobin Sodium Potassium Chloride Carbon Dioxide BUN Creatinine Glucose POC Glucose Hemoglobin A1c Lactic Acid 6.80 H* Calcium Phosphorus Magnesium Ferritin AST ALT Alkaline Phosphatase Lactate Dehydrogenase Troponin T 0.089 H C-Reactive Protein Total Protein Albumin LDL Cholesterol Direct Urine Creatinine Urine Total Protein Salicylates Acetaminophen 10/29/21 10/29/21 10/29/21 15:10 15:10 15:10 WBC RBC Hgb Hct MCH RDW Plt Count Lymph % (Auto) Lymph # (Auto) [place] # (Auto) Seg Neutrophils % Seg Neuts % (Manual) Lymphocytes % (Manual) Nucleated RBC % Seg Neutrophils # Seg Neutrophils # Man Monocytes # (Manual) PT INR APTT D-Dimer Heparin Anti-Xa Level ABG pH ABG pO2 ABG HCO3 ABG O2 Saturation ABG Base Excess ABG Hemoglobin Oxyhemoglobin Sodium 136 L Potassium 2.8 L* Chloride 93.4 L Carbon Dioxide 20 L BUN Creatinine Glucose 330 H POC Glucose Hemoglobin A1c Lactic Acid Calcium Phosphorus Magnesium Ferritin AST 1013 H ALT 1289 H Alkaline Phosphatase 246 H Lactate Dehydrogenase Troponin T C-Reactive Protein Total Protein Albumin LDL Cholesterol Direct Urine Creatinine Urine Total Protein Salicylates < 0.3 L Acetaminophen 5.0 L 10/29/21 10/29/21 10/29/21 15:11 16:01 19:29 WBC RBC Hgb Hct MCH RDW Plt Count Lymph % (Auto) Lymph # (Auto) [place] # (Auto) Seg Neutrophils % Seg Neuts % (Manual) Lymphocytes % (Manual) Nucleated RBC % Seg Neutrophils # Seg Neutrophils # Man Monocytes # (Manual) PT INR APTT D-Dimer Heparin Anti-Xa Level ABG pH 7.307 L ABG pO2 64.1 L ABG HCO3 ABG O2 Saturation 90.8 L ABG Base Excess -2.9 L ABG Hemoglobin Oxyhemoglobin 89.3 L Sodium Potassium Chloride Carbon Dioxide BUN Creatinine Glucose POC Glucose Hemoglobin A1c Lactic Acid 2.60 H* Calcium Phosphorus Magnesium 2.90 H Ferritin AST ALT Alkaline Phosphatase Lactate Dehydrogenase Troponin T C-Reactive Protein Total Protein Albumin LDL Cholesterol Direct Urine Creatinine Urine Total Protein Salicylates Acetaminophen 10/29/21 10/29/21 10/30/21 19:40 22:34 04:30 WBC 16.2 H RBC Hgb Hct MCH 26 L RDW 15.5 H Plt Count Lymph % (Auto) 6.2 L Lymph # (Auto) 1.0 L [place] # (Auto) 0.9 H Seg Neutrophils % 88.1 H Seg Neuts % (Manual) Lymphocytes % (Manual) Nucleated RBC % Seg Neutrophils # 14.2 H Seg Neutrophils # Man Monocytes # (Manual) PT INR APTT D-Dimer Heparin Anti-Xa Level ABG pH ABG pO2 ABG HCO3 ABG O2 Saturation ABG Base Excess ABG Hemoglobin Oxyhemoglobin Sodium Potassium Chloride Carbon Dioxide BUN Creatinine Glucose POC Glucose Hemoglobin A1c Lactic Acid Calcium Phosphorus Magnesium Ferritin AST ALT Alkaline Phosphatase Lactate Dehydrogenase Troponin T 1.950 H* D 1.150 H* D C-Reactive Protein Total Protein Albumin LDL Cholesterol Direct 43 L Urine Creatinine Urine Total Protein Salicylates Acetaminophen 10/30/21 10/30/21 10/30/21 04:30 04:35 05:45 WBC RBC Hgb Hct MCH RDW Plt Count Lymph % (Auto) Lymph # (Auto) [place] # (Auto) Seg Neutrophils % Seg Neuts % (Manual) Lymphocytes % (Manual) Nucleated RBC % Seg Neutrophils # Seg Neutrophils # Man Monocytes # (Manual) PT INR APTT D-Dimer Heparin Anti-Xa Level ABG pH ABG pO2 69.5 L ABG HCO3 ABG O2 Saturation ABG Base Excess -2.7 L ABG Hemoglobin Oxyhemoglobin 94.7 L Sodium Potassium Chloride Carbon Dioxide 21 L BUN Creatinine Glucose 159 H POC Glucose 151 H Hemoglobin A1c Lactic Acid Calcium 7.9 L D Phosphorus Magnesium Ferritin AST 461 H ALT 686 H Alkaline Phosphatase 130 H Lactate Dehydrogenase Troponin T C-Reactive Protein Total Protein 5.6 L D Albumin 3.2 L LDL Cholesterol Direct Urine Creatinine Urine Total Protein Salicylates Acetaminophen 10/30/21 10/30/21 10/30/21 11:24 15:59 16:30 WBC RBC Hgb Hct MCH RDW Plt Count Lymph % (Auto) Lymph # (Auto) [place] # (Auto) Seg Neutrophils % Seg Neuts % (Manual) Lymphocytes % (Manual) Nucleated RBC % Seg Neutrophils # Seg Neutrophils # Man Monocytes # (Manual) PT 17.2 H INR 1.27 H APTT 44.4 H D-Dimer Heparin Anti-Xa Level ABG pH ABG pO2 ABG HCO3 ABG O2 Saturation ABG Base Excess ABG Hemoglobin Oxyhemoglobin Sodium Potassium Chloride Carbon Dioxide BUN Creatinine Glucose POC Glucose 153 H 109 H Hemoglobin A1c Lactic Acid Calcium Phosphorus Magnesium Ferritin AST ALT Alkaline Phosphatase Lactate Dehydrogenase Troponin T C-Reactive Protein Total Protein Albumin LDL Cholesterol Direct Urine Creatinine Urine Total Protein Salicylates Acetaminophen 10/30/21 10/30/21 10/30/21 23:00 Unknown Unknown WBC RBC Hgb Hct MCH RDW Plt Count Lymph % (Auto) Lymph # (Auto) [place] # (Auto) Seg Neutrophils % Seg Neuts % (Manual) Lymphocytes % (Manual) Nucleated RBC % Seg Neutrophils # Seg Neutrophils # Man Monocytes # (Manual) PT INR APTT D-Dimer > 82732 H Heparin Anti-Xa Level 0.82 H ABG pH ABG pO2 ABG HCO3 ABG O2 Saturation ABG Base Excess ABG Hemoglobin Oxyhemoglobin Sodium Potassium Chloride Carbon Dioxide BUN Creatinine Glucose POC Glucose Hemoglobin A1c Lactic Acid Calcium Phosphorus Magnesium Ferritin 208.4 H AST ALT Alkaline Phosphatase Lactate Dehydrogenase Troponin T C-Reactive Protein Total Protein Albumin LDL Cholesterol Direct Urine Creatinine Urine Total Protein Salicylates Acetaminophen 10/30/21 10/31/21 10/31/21 Unknown 04:30 04:30 WBC 14.4 H RBC Hgb Hct MCH 26 L RDW Plt Count Lymph % (Auto) Lymph # (Auto) [place] # (Auto) Seg Neutrophils % Seg Neuts % (Manual) Lymphocytes % (Manual) Nucleated RBC % Seg Neutrophils # Seg Neutrophils # Man Monocytes # (Manual) PT INR APTT D-Dimer Heparin Anti-Xa Level ABG pH ABG pO2 ABG HCO3 ABG O2 Saturation ABG Base Excess ABG Hemoglobin Oxyhemoglobin Sodium Potassium 3.5 L Chloride 107.5 H Carbon Dioxide 20 L BUN 28 H Creatinine 1.7 H Glucose 113 H POC Glucose Hemoglobin A1c Lactic Acid Calcium 7.9 L Phosphorus Magnesium Ferritin AST ALT Alkaline Phosphatase Lactate Dehydrogenase 469 H Troponin T C-Reactive Protein 13.40 H Total Protein Albumin LDL Cholesterol Direct Urine Creatinine Urine Total Protein Salicylates Acetaminophen 10/31/21 10/31/21 10/31/21 04:30 05:11 15:30 WBC RBC Hgb Hct MCH RDW Plt Count Lymph % (Auto) Lymph # (Auto) [place] # (Auto) Seg Neutrophils % Seg Neuts % (Manual) Lymphocytes % (Manual) Nucleated RBC % Seg Neutrophils # Seg Neutrophils # Man Monocytes # (Manual) PT INR APTT D-Dimer Heparin Anti-Xa Level ABG pH 7.222 L ABG pO2 61.5 L ABG HCO3 ABG O2 Saturation 86.2 L ABG Base Excess -6.3 L ABG Hemoglobin 11.2 L Oxyhemoglobin 84.5 L Sodium Potassium Chloride Carbon Dioxide BUN Creatinine Glucose POC Glucose 106 H Hemoglobin A1c 6.7 H Lactic Acid Calcium Phosphorus Magnesium Ferritin AST ALT Alkaline Phosphatase Lactate Dehydrogenase Troponin T C-Reactive Protein Total Protein Albumin LDL Cholesterol Direct Urine Creatinine Urine Total Protein Salicylates Acetaminophen 10/31/21 10/31/21 10/31/21 16:07 16:35 17:45 WBC RBC Hgb Hct MCH RDW Plt Count Lymph % (Auto) Lymph # (Auto) [place] # (Auto) Seg Neutrophils % Seg Neuts % (Manual) Lymphocytes % (Manual) Nucleated RBC % Seg Neutrophils # Seg Neutrophils # Man Monocytes # (Manual) PT INR APTT D-Dimer Heparin Anti-Xa Level ABG pH 7.267 L ABG pO2 58.3 L ABG HCO3 ABG O2 Saturation 88.3 L ABG Base Excess -5.9 L ABG Hemoglobin 10.1 L Oxyhemoglobin 86.5 L Sodium Potassium Chloride Carbon Dioxide BUN Creatinine Glucose POC Glucose 115 H Hemoglobin A1c Lactic Acid Calcium Phosphorus Magnesium Ferritin AST ALT Alkaline Phosphatase Lactate Dehydrogenase Troponin T C-Reactive Protein Total Protein Albumin LDL Cholesterol Direct Urine Creatinine 383.6 H Urine Total Protein Salicylates Acetaminophen 11/01/21 11/01/21 11/01/21 00:06 05:08 06:00 WBC 12.6 H RBC 3.43 L Hgb 8.9 L Hct 28.7 L MCH 26 L RDW 15.7 H Plt Count 130 L Lymph % (Auto) Lymph # (Auto) [place] # (Auto) Seg Neutrophils % Seg Neuts % (Manual) Lymphocytes % (Manual) Nucleated RBC % Seg Neutrophils # Seg Neutrophils # Man Monocytes # (Manual) PT INR APTT D-Dimer Heparin Anti-Xa Level ABG pH ABG pO2 ABG HCO3 ABG O2 Saturation ABG Base Excess ABG Hemoglobin Oxyhemoglobin Sodium Potassium Chloride Carbon Dioxide BUN Creatinine Glucose POC Glucose 114 H 120 H Hemoglobin A1c Lactic Acid Calcium Phosphorus Magnesium Ferritin AST ALT Alkaline Phosphatase Lactate Dehydrogenase Troponin T C-Reactive Protein Total Protein Albumin LDL Cholesterol Direct Urine Creatinine Urine Total Protein Salicylates Acetaminophen 11/01/21 11/01/21 11/01/21 06:00 11:43 14:00 WBC RBC Hgb Hct MCH RDW Plt Count Lymph % (Auto) Lymph # (Auto) [place] # (Auto) Seg Neutrophils % Seg Neuts % (Manual) Lymphocytes % (Manual) Nucleated RBC % Seg Neutrophils # Seg Neutrophils # Man Monocytes # (Manual) PT INR APTT D-Dimer Heparin Anti-Xa Level ABG pH 7.349 L ABG pO2 75.6 L ABG HCO3 ABG O2 Saturation ABG Base Excess -3.9 L ABG Hemoglobin 9.8 L Oxyhemoglobin 93.5 L Sodium Potassium Chloride 114.1 H Carbon Dioxide 20 L BUN 33 H Creatinine Glucose 131 H POC Glucose 151 H Hemoglobin A1c Lactic Acid Calcium 7.7 L Phosphorus Magnesium Ferritin AST 79 H ALT 259 H Alkaline Phosphatase Lactate Dehydrogenase Troponin T C-Reactive Protein Total Protein 5.5 L Albumin 2.7 L LDL Cholesterol Direct Urine Creatinine Urine Total Protein Salicylates Acetaminophen 11/01/21 11/01/21 11/02/21 16:45 22:55 05:12 WBC RBC Hgb Hct MCH RDW Plt Count Lymph % (Auto) Lymph # (Auto) [place] # (Auto) Seg Neutrophils % Seg Neuts % (Manual) Lymphocytes % (Manual) Nucleated RBC % Seg Neutrophils # Seg Neutrophils # Man Monocytes # (Manual) PT INR APTT D-Dimer Heparin Anti-Xa Level ABG pH ABG pO2 ABG HCO3 ABG O2 Saturation ABG Base Excess ABG Hemoglobin Oxyhemoglobin Sodium Potassium Chloride Carbon Dioxide BUN Creatinine Glucose POC Glucose 119 H 129 H 140 H Hemoglobin A1c Lactic Acid Calcium Phosphorus Magnesium Ferritin AST ALT Alkaline Phosphatase Lactate Dehydrogenase Troponin T C-Reactive Protein Total Protein Albumin LDL Cholesterol Direct Urine Creatinine Urine Total Protein Salicylates Acetaminophen 11/02/21 11/02/21 11/02/21 05:35 05:35 09:35 WBC 13.5 H RBC 3.60 L Hgb 9.7 L Hct MCH 27 L RDW 15.7 H Plt Count Lymph % (Auto) Lymph # (Auto) [place] # (Auto) Seg Neutrophils % Seg Neuts % (Manual) Lymphocytes % (Manual) Nucleated RBC % Seg Neutrophils # Seg Neutrophils # Man Monocytes # (Manual) PT INR APTT D-Dimer Heparin Anti-Xa Level ABG pH 7.208 L ABG pO2 75.9 L ABG HCO3 ABG O2 Saturation 93.6 L ABG Base Excess -4.3 L ABG Hemoglobin 9.1 L Oxyhemoglobin 91.6 L Sodium Potassium 5.2 H D Chloride 112.6 H Carbon Dioxide BUN 32 H Creatinine Glucose 152 H POC Glucose Hemoglobin A1c Lactic Acid Calcium 8.2 L Phosphorus Magnesium 2.70 H Ferritin AST ALT Alkaline Phosphatase Lactate Dehydrogenase Troponin T C-Reactive Protein Total Protein Albumin LDL Cholesterol Direct Urine Creatinine Urine Total Protein Salicylates Acetaminophen 11/02/21 11/02/21 11/02/21 11:44 17:13 23:43 WBC RBC Hgb Hct MCH RDW Plt Count Lymph % (Auto) Lymph # (Auto) [place] # (Auto) Seg Neutrophils % Seg Neuts % (Manual) Lymphocytes % (Manual) Nucleated RBC % Seg Neutrophils # Seg Neutrophils # Man Monocytes # (Manual) PT INR APTT D-Dimer Heparin Anti-Xa Level ABG pH ABG pO2 ABG HCO3 ABG O2 Saturation ABG Base Excess ABG Hemoglobin Oxyhemoglobin Sodium Potassium Chloride Carbon Dioxide BUN Creatinine Glucose POC Glucose 173 H 148 H 137 H Hemoglobin A1c Lactic Acid Calcium Phosphorus Magnesium Ferritin AST ALT Alkaline Phosphatase Lactate Dehydrogenase Troponin T C-Reactive Protein Total Protein Albumin LDL Cholesterol Direct Urine Creatinine Urine Total Protein Salicylates Acetaminophen 11/03/21 11/03/21 11/03/21 04:59 06:00 06:00 WBC RBC 3.43 L Hgb 9.1 L Hct 29.0 L MCH 26 L RDW 16.4 H Plt Count Lymph % (Auto) Lymph # (Auto) [place] # (Auto) Seg Neutrophils % Seg Neuts % (Manual) Lymphocytes % (Manual) Nucleated RBC % Seg Neutrophils # Seg Neutrophils # Man Monocytes # (Manual) PT INR APTT D-Dimer Heparin Anti-Xa Level 0.17 L ABG pH ABG pO2 ABG HCO3 ABG O2 Saturation ABG Base Excess ABG Hemoglobin Oxyhemoglobin Sodium Potassium Chloride Carbon Dioxide BUN Creatinine Glucose POC Glucose 167 H Hemoglobin A1c Lactic Acid Calcium Phosphorus Magnesium Ferritin AST ALT Alkaline Phosphatase Lactate Dehydrogenase Troponin T C-Reactive Protein Total Protein Albumin LDL Cholesterol Direct Urine Creatinine Urine Total Protein Salicylates Acetaminophen 11/03/21 11/03/21 11/03/21 06:00 09:20 11:58 WBC RBC Hgb Hct MCH RDW Plt Count Lymph % (Auto) Lymph # (Auto) [place] # (Auto) Seg Neutrophils % Seg Neuts % (Manual) Lymphocytes % (Manual) Nucleated RBC % Seg Neutrophils # Seg Neutrophils # Man Monocytes # (Manual) PT INR APTT D-Dimer Heparin Anti-Xa Level ABG pH 7.274 L ABG pO2 75.6 L ABG HCO3 ABG O2 Saturation 94.9 L ABG Base Excess -2.5 L ABG Hemoglobin 9.3 L Oxyhemoglobin 92.9 L Sodium 149 H Potassium Chloride 117.5 H Carbon Dioxide BUN 32 H Creatinine Glucose 173 H POC Glucose 192 H Hemoglobin A1c Lactic Acid Calcium 8.1 L Phosphorus Magnesium Ferritin AST ALT Alkaline Phosphatase Lactate Dehydrogenase Troponin T C-Reactive Protein Total Protein Albumin LDL Cholesterol Direct Urine Creatinine Urine Total Protein Salicylates Acetaminophen 11/03/21 11/03/21 11/04/21 18:22 Unknown 00:09 WBC RBC Hgb Hct MCH RDW Plt Count Lymph % (Auto) Lymph # (Auto) [place] # (Auto) Seg Neutrophils % Seg Neuts % (Manual) Lymphocytes % (Manual) Nucleated RBC % Seg Neutrophils # Seg Neutrophils # Man Monocytes # (Manual) PT INR APTT D-Dimer Heparin Anti-Xa Level 0.29 L ABG pH ABG pO2 ABG HCO3 ABG O2 Saturation ABG Base Excess ABG Hemoglobin Oxyhemoglobin Sodium Potassium Chloride Carbon Dioxide BUN Creatinine Glucose POC Glucose 178 H 221 H Hemoglobin A1c Lactic Acid Calcium Phosphorus Magnesium Ferritin AST ALT Alkaline Phosphatase Lactate Dehydrogenase Troponin T C-Reactive Protein Total Protein Albumin LDL Cholesterol Direct Urine Creatinine Urine Total Protein Salicylates Acetaminophen 11/04/21 11/04/21 11/04/21 05:09 09:40 09:40 WBC 16.8 H RBC Hgb Hct MCH 27 L RDW 16.5 H Plt Count Lymph % (Auto) Lymph # (Auto) [place] # (Auto) Seg Neutrophils % Seg Neuts % (Manual) Lymphocytes % (Manual) Nucleated RBC % Seg Neutrophils # Seg Neutrophils # Man Monocytes # (Manual) PT INR APTT D-Dimer Heparin Anti-Xa Level ABG pH ABG pO2 ABG HCO3 ABG O2 Saturation ABG Base Excess ABG Hemoglobin Oxyhemoglobin Sodium Potassium 5.9 H Chloride 108.5 H Carbon Dioxide BUN 54 H Creatinine 1.8 H Glucose 198 H POC Glucose 182 H Hemoglobin A1c Lactic Acid Calcium Phosphorus Magnesium 3.00 H Ferritin AST ALT Alkaline Phosphatase Lactate Dehydrogenase Troponin T C-Reactive Protein Total Protein Albumin LDL Cholesterol Direct Urine Creatinine Urine Total Protein Salicylates Acetaminophen 11/04/21 11/04/21 11/04/21 12:13 13:34 14:05 WBC RBC Hgb Hct MCH RDW Plt Count Lymph % (Auto) Lymph # (Auto) [place] # (Auto) Seg Neutrophils % Seg Neuts % (Manual) Lymphocytes % (Manual) Nucleated RBC % Seg Neutrophils # Seg Neutrophils # Man Monocytes # (Manual) PT INR APTT D-Dimer Heparin Anti-Xa Level ABG pH 7.223 L ABG pO2 71.3 L ABG HCO3 ABG O2 Saturation 92.8 L ABG Base Excess ABG Hemoglobin 8.2 L Oxyhemoglobin 91.0 L Sodium Potassium Chloride Carbon Dioxide BUN Creatinine Glucose POC Glucose 184 H Hemoglobin A1c Lactic Acid Calcium Phosphorus Magnesium Ferritin AST ALT Alkaline Phosphatase Lactate Dehydrogenase Troponin T C-Reactive Protein Total Protein Albumin LDL Cholesterol Direct Urine Creatinine 184.6 H Urine Total Protein Salicylates Acetaminophen 11/04/21 11/04/21 11/05/21 18:02 Unknown 00:07 WBC RBC Hgb Hct MCH RDW Plt Count Lymph % (Auto) Lymph # (Auto) [place] # (Auto) Seg Neutrophils % Seg Neuts % (Manual) Lymphocytes % (Manual) Nucleated RBC % Seg Neutrophils # Seg Neutrophils # Man Monocytes # (Manual) PT INR APTT D-Dimer Heparin Anti-Xa Level ABG pH ABG pO2 ABG HCO3 ABG O2 Saturation ABG Base Excess ABG Hemoglobin Oxyhemoglobin Sodium Potassium Chloride Carbon Dioxide BUN Creatinine Glucose POC Glucose 262 H 259 H Hemoglobin A1c Lactic Acid Calcium Phosphorus Magnesium Ferritin AST ALT Alkaline Phosphatase Lactate Dehydrogenase Troponin T C-Reactive Protein Total Protein Albumin LDL Cholesterol Direct Urine Creatinine 190.9 H Urine Total Protein 172 H Salicylates Acetaminophen 11/05/21 11/05/21 11/05/21 04:20 04:20 05:30 WBC 17.9 H RBC 3.64 L Hgb 9.7 L Hct MCH 27 L RDW 16.4 H Plt Count Lymph % (Auto) Lymph # (Auto) [place] # (Auto) Seg Neutrophils % Seg Neuts % (Manual) Lymphocytes % (Manual) Nucleated RBC % Seg Neutrophils # Seg Neutrophils # Man Monocytes # (Manual) PT INR APTT D-Dimer Heparin Anti-Xa Level ABG pH ABG pO2 ABG HCO3 ABG O2 Saturation ABG Base Excess ABG Hemoglobin Oxyhemoglobin Sodium Potassium 5.6 H Chloride 108.4 H Carbon Dioxide BUN 71 H Creatinine 1.9 H Glucose 270 H POC Glucose 283 H Hemoglobin A1c Lactic Acid Calcium Phosphorus Magnesium Ferritin AST ALT Alkaline Phosphatase Lactate Dehydrogenase Troponin T C-Reactive Protein Total Protein Albumin LDL Cholesterol Direct Urine Creatinine Urine Total Protein Salicylates Acetaminophen 11/05/21 11/05/21 11/05/21 10:05 12:10 15:29 WBC RBC Hgb Hct MCH RDW Plt Count Lymph % (Auto) Lymph # (Auto) [place] # (Auto) Seg Neutrophils % Seg Neuts % (Manual) Lymphocytes % (Manual) Nucleated RBC % Seg Neutrophils # Seg Neutrophils # Man Monocytes # (Manual) PT INR APTT D-Dimer Heparin Anti-Xa Level ABG pH 7.248 L ABG pO2 73.7 L ABG HCO3 26.2 H ABG O2 Saturation 93.1 L ABG Base Excess ABG Hemoglobin 8.9 L Oxyhemoglobin 91.4 L Sodium Potassium Chloride Carbon Dioxide BUN Creatinine Glucose POC Glucose 225 H 199 H Hemoglobin A1c Lactic Acid Calcium Phosphorus Magnesium Ferritin AST ALT Alkaline Phosphatase Lactate Dehydrogenase Troponin T C-Reactive Protein Total Protein Albumin LDL Cholesterol Direct Urine Creatinine Urine Total Protein Salicylates Acetaminophen 11/05/21 11/05/21 11/05/21 15:51 17:32 17:40 WBC RBC Hgb Hct MCH RDW Plt Count Lymph % (Auto) Lymph # (Auto) [place] # (Auto) Seg Neutrophils % Seg Neuts % (Manual) Lymphocytes % (Manual) Nucleated RBC % Seg Neutrophils # Seg Neutrophils # Man Monocytes # (Manual) PT INR APTT D-Dimer Heparin Anti-Xa Level ABG pH ABG pO2 ABG HCO3 ABG O2 Saturation ABG Base Excess ABG Hemoglobin Oxyhemoglobin Sodium Potassium 5.2 H Chloride 107.8 H Carbon Dioxide BUN 79 H Creatinine 1.9 H Glucose 204 H POC Glucose 278 H 197 H Hemoglobin A1c Lactic Acid Calcium Phosphorus Magnesium Ferritin AST ALT Alkaline Phosphatase Lactate Dehydrogenase Troponin T C-Reactive Protein Total Protein Albumin LDL Cholesterol Direct Urine Creatinine Urine Total Protein Salicylates Acetaminophen 11/05/21 11/05/21 11/05/21 21:25 22:22 23:43 WBC RBC Hgb Hct MCH RDW Plt Count Lymph % (Auto) Lymph # (Auto) [place] # (Auto) Seg Neutrophils % Seg Neuts % (Manual) Lymphocytes % (Manual) Nucleated RBC % Seg Neutrophils # Seg Neutrophils # Man Monocytes # (Manual) PT INR APTT D-Dimer Heparin Anti-Xa Level ABG pH ABG pO2 ABG HCO3 ABG O2 Saturation ABG Base Excess ABG Hemoglobin Oxyhemoglobin Sodium Potassium 5.3 H Chloride 109.2 H Carbon Dioxide BUN 81 H Creatinine 2.0 H Glucose 195 H POC Glucose 180 H 203 H Hemoglobin A1c Lactic Acid Calcium Phosphorus Magnesium Ferritin AST ALT Alkaline Phosphatase Lactate Dehydrogenase Troponin T C-Reactive Protein Total Protein Albumin LDL Cholesterol Direct Urine Creatinine Urine Total Protein Salicylates Acetaminophen 11/05/21 11/06/21 11/06/21 Unknown 02:35 05:09 WBC RBC Hgb Hct MCH RDW Plt Count Lymph % (Auto) Lymph # (Auto) [place] # (Auto) Seg Neutrophils % Seg Neuts % (Manual) Lymphocytes % (Manual) Nucleated RBC % Seg Neutrophils # Seg Neutrophils # Man Monocytes # (Manual) PT INR APTT D-Dimer Heparin Anti-Xa Level ABG pH ABG pO2 ABG HCO3 ABG O2 Saturation ABG Base Excess ABG Hemoglobin Oxyhemoglobin Sodium 146 H Potassium 6.0 H Chloride 108.1 H 107.1 H Carbon Dioxide 21 L BUN 80 H 84 H Creatinine 2.0 H 2.0 H Glucose 238 H 235 H POC Glucose 215 H Hemoglobin A1c Lactic Acid Calcium Phosphorus Magnesium 2.80 H Ferritin AST ALT 77 H Alkaline Phosphatase Lactate Dehydrogenase Troponin T C-Reactive Protein Total Protein Albumin 3.0 L LDL Cholesterol Direct Urine Creatinine Urine Total Protein Salicylates Acetaminophen 11/06/21 11/06/21 11/06/21 05:40 08:07 08:07 WBC RBC Hgb Hct MCH RDW Plt Count Lymph % (Auto) Lymph # (Auto) [place] # (Auto) Seg Neutrophils % Seg Neuts % (Manual) Lymphocytes % (Manual) Nucleated RBC % Seg Neutrophils # Seg Neutrophils # Man Monocytes # (Manual) PT INR APTT D-Dimer Heparin Anti-Xa Level 1.24 H ABG pH 7.311 L ABG pO2 72.8 L ABG HCO3 29.7 H ABG O2 Saturation 94.1 L ABG Base Excess ABG Hemoglobin 11.4 L Oxyhemoglobin 92.3 L Sodium Potassium 5.2 H Chloride Carbon Dioxide BUN 85 H Creatinine 2.3 H Glucose 236 H POC Glucose Hemoglobin A1c Lactic Acid Calcium Phosphorus Magnesium Ferritin AST ALT Alkaline Phosphatase Lactate Dehydrogenase Troponin T C-Reactive Protein Total Protein Albumin LDL Cholesterol Direct Urine Creatinine Urine Total Protein Salicylates Acetaminophen 11/06/21 11/06/21 11/06/21 12:14 12:57 14:28 WBC RBC Hgb Hct MCH RDW Plt Count Lymph % (Auto) Lymph # (Auto) [place] # (Auto) Seg Neutrophils % Seg Neuts % (Manual) Lymphocytes % (Manual) Nucleated RBC % Seg Neutrophils # Seg Neutrophils # Man Monocytes # (Manual) PT INR APTT D-Dimer Heparin Anti-Xa Level ABG pH 7.282 L ABG pO2 72.6 L ABG HCO3 30.8 H ABG O2 Saturation 93.7 L ABG Base Excess 3.2 H ABG Hemoglobin 8.6 L Oxyhemoglobin 91.8 L Sodium Potassium Chloride Carbon Dioxide BUN 91 H Creatinine 2.6 H Glucose 259 H POC Glucose 225 H Hemoglobin A1c Lactic Acid Calcium Phosphorus Magnesium Ferritin AST ALT Alkaline Phosphatase Lactate Dehydrogenase Troponin T C-Reactive Protein Total Protein Albumin LDL Cholesterol Direct Urine Creatinine Urine Total Protein Salicylates Acetaminophen 11/06/21 11/06/21 11/06/21 17:28 19:20 21:30 WBC RBC Hgb Hct MCH RDW Plt Count Lymph % (Auto) Lymph # (Auto) [place] # (Auto) Seg Neutrophils % Seg Neuts % (Manual) Lymphocytes % (Manual) Nucleated RBC % Seg Neutrophils # Seg Neutrophils # Man Monocytes # (Manual) PT INR APTT D-Dimer Heparin Anti-Xa Level 0.73 H ABG pH ABG pO2 ABG HCO3 ABG O2 Saturation ABG Base Excess ABG Hemoglobin Oxyhemoglobin Sodium Potassium Chloride Carbon Dioxide BUN 95 H Creatinine 2.9 H Glucose 233 H POC Glucose 206 H Hemoglobin A1c Lactic Acid Calcium Phosphorus Magnesium Ferritin AST ALT Alkaline Phosphatase Lactate Dehydrogenase Troponin T C-Reactive Protein Total Protein Albumin LDL Cholesterol Direct Urine Creatinine Urine Total Protein Salicylates Acetaminophen 11/06/21 11/07/21 11/07/21 22:56 05:06 06:30 WBC RBC Hgb Hct MCH RDW Plt Count Lymph % (Auto) Lymph # (Auto) [place] # (Auto) Seg Neutrophils % Seg Neuts % (Manual) Lymphocytes % (Manual) Nucleated RBC % Seg Neutrophils # Seg Neutrophils # Man Monocytes # (Manual) PT INR APTT D-Dimer Heparin Anti-Xa Level ABG pH ABG pO2 ABG HCO3 ABG O2 Saturation ABG Base Excess ABG Hemoglobin Oxyhemoglobin Sodium 146 H Potassium Chloride Carbon Dioxide BUN 98 H Creatinine 2.8 H Glucose 202 H POC Glucose 215 H 172 H Hemoglobin A1c Lactic Acid Calcium Phosphorus 4.90 H D Magnesium 2.90 H Ferritin AST ALT Alkaline Phosphatase Lactate Dehydrogenase Troponin T C-Reactive Protein Total Protein Albumin LDL Cholesterol Direct Urine Creatinine Urine Total Protein Salicylates Acetaminophen 11/07/21 11/07/21 11/07/21 06:30 11:26 12:15 WBC 16.0 H RBC 3.06 L Hgb 8.2 L Hct 26.1 L MCH 27 L RDW 16.2 H Plt Count Lymph % (Auto) Lymph # (Auto) [place] # (Auto) Seg Neutrophils % Seg Neuts % (Manual) 77.0 H Lymphocytes % (Manual) 11.0 L Nucleated RBC % 2.0 H Seg Neutrophils # Seg Neutrophils # Man 12.3 H Monocytes # (Manual) PT INR APTT D-Dimer Heparin Anti-Xa Level ABG pH 7.298 L ABG pO2 73.0 L ABG HCO3 33.3 H ABG O2 Saturation 94.4 L ABG Base Excess 5.8 H ABG Hemoglobin 8.2 L Oxyhemoglobin 92.7 L Sodium Potassium Chloride Carbon Dioxide BUN Creatinine Glucose POC Glucose 179 H Hemoglobin A1c Lactic Acid Calcium Phosphorus Magnesium Ferritin AST ALT Alkaline Phosphatase Lactate Dehydrogenase Troponin T C-Reactive Protein Total Protein Albumin LDL Cholesterol Direct Urine Creatinine Urine Total Protein Salicylates Acetaminophen 11/07/21 11/07/21 11/07/21 17:57 22:16 23:49 WBC RBC Hgb Hct MCH RDW Plt Count Lymph % (Auto) Lymph # (Auto) [place] # (Auto) Seg Neutrophils % Seg Neuts % (Manual) Lymphocytes % (Manual) Nucleated RBC % Seg Neutrophils # Seg Neutrophils # Man Monocytes # (Manual) PT INR APTT D-Dimer Heparin Anti-Xa Level ABG pH ABG pO2 ABG HCO3 ABG O2 Saturation ABG Base Excess ABG Hemoglobin Oxyhemoglobin Sodium Potassium Chloride Carbon Dioxide BUN Creatinine Glucose POC Glucose 166 H 223 H 190 H Hemoglobin A1c Lactic Acid Calcium Phosphorus Magnesium Ferritin AST ALT Alkaline Phosphatase Lactate Dehydrogenase Troponin T C-Reactive Protein Total Protein Albumin LDL Cholesterol Direct Urine Creatinine Urine Total Protein Salicylates Acetaminophen 11/08/21 11/08/21 11/08/21 04:20 04:20 06:16 WBC 22.1 H RBC 3.01 L Hgb 8.1 L Hct 25.6 L MCH 27 L RDW 15.4 H Plt Count Lymph % (Auto) Lymph # (Auto) [place] # (Auto) Seg Neutrophils % Seg Neuts % (Manual) Lymphocytes % (Manual) Nucleated RBC % Seg Neutrophils # Seg Neutrophils # Man Monocytes # (Manual) PT INR APTT D-Dimer Heparin Anti-Xa Level ABG pH ABG pO2 ABG HCO3 ABG O2 Saturation ABG Base Excess ABG Hemoglobin Oxyhemoglobin Sodium 151 H Potassium 3.1 L D Chloride 107.3 H Carbon Dioxide 31 H BUN 82 H Creatinine 1.8 H Glucose 232 H POC Glucose 198 H Hemoglobin A1c Lactic Acid Calcium 8.1 L Phosphorus Magnesium Ferritin AST ALT Alkaline Phosphatase Lactate Dehydrogenase Troponin T C-Reactive Protein Total Protein Albumin LDL Cholesterol Direct Urine Creatinine Urine Total Protein Salicylates Acetaminophen 11/08/21 11/08/21 11/08/21 11:38 12:00 18:29 WBC RBC Hgb Hct MCH RDW Plt Count Lymph % (Auto) Lymph # (Auto) [place] # (Auto) Seg Neutrophils % Seg Neuts % (Manual) Lymphocytes % (Manual) Nucleated RBC % Seg Neutrophils # Seg Neutrophils # Man Monocytes # (Manual) PT INR APTT D-Dimer Heparin Anti-Xa Level ABG pH ABG pO2 ABG HCO3 ABG O2 Saturation ABG Base Excess ABG Hemoglobin Oxyhemoglobin Sodium Potassium 3.0 L Chloride Carbon Dioxide BUN Creatinine Glucose POC Glucose 190 H 211 H Hemoglobin A1c Lactic Acid Calcium Phosphorus Magnesium Ferritin AST ALT Alkaline Phosphatase Lactate Dehydrogenase Troponin T C-Reactive Protein Total Protein Albumin LDL Cholesterol Direct Urine Creatinine Urine Total Protein Salicylates Acetaminophen 11/08/21 11/08/21 11/09/21 21:34 21:40 00:36 WBC RBC Hgb Hct MCH RDW Plt Count Lymph % (Auto) Lymph # (Auto) [place] # (Auto) Seg Neutrophils % Seg Neuts % (Manual) Lymphocytes % (Manual) Nucleated RBC % Seg Neutrophils # Seg Neutrophils # Man Monocytes # (Manual) PT INR APTT D-Dimer Heparin Anti-Xa Level ABG pH ABG pO2 ABG HCO3 ABG O2 Saturation ABG Base Excess ABG Hemoglobin Oxyhemoglobin Sodium 148 H Potassium 2.8 L* Chloride Carbon Dioxide 31 H BUN 68 H Creatinine 1.5 H Glucose 191 H POC Glucose 194 H 140 H Hemoglobin A1c Lactic Acid Calcium 8.2 L Phosphorus Magnesium Ferritin AST ALT Alkaline Phosphatase Lactate Dehydrogenase Troponin T C-Reactive Protein Total Protein Albumin LDL Cholesterol Direct Urine Creatinine Urine Total Protein Salicylates Acetaminophen 11/09/21 11/09/21 11/09/21 04:51 04:51 04:51 WBC 27.6 H RBC 3.18 L Hgb 8.4 L Hct 26.6 L MCH 27 L RDW 15.3 H Plt Count Lymph % (Auto) Lymph # (Auto) [place] # (Auto) Seg Neutrophils % Seg Neuts % (Manual) Lymphocytes % (Manual) Nucleated RBC % Seg Neutrophils # Seg Neutrophils # Man Monocytes # (Manual) PT INR APTT D-Dimer Heparin Anti-Xa Level 0.18 L ABG pH ABG pO2 ABG HCO3 ABG O2 Saturation ABG Base Excess ABG Hemoglobin Oxyhemoglobin Sodium 148 H Potassium 2.7 L* Chloride Carbon Dioxide BUN 59 H Creatinine 1.4 H Glucose 143 H POC Glucose Hemoglobin A1c Lactic Acid Calcium 8.3 L Phosphorus Magnesium Ferritin AST ALT Alkaline Phosphatase Lactate Dehydrogenase Troponin T C-Reactive Protein Total Protein Albumin LDL Cholesterol Direct Urine Creatinine Urine Total Protein Salicylates Acetaminophen 11/09/21 11/09/21 11/09/21 05:52 08:45 11:00 WBC RBC Hgb Hct MCH RDW Plt Count Lymph % (Auto) Lymph # (Auto) [place] # (Auto) Seg Neutrophils % Seg Neuts % (Manual) Lymphocytes % (Manual) Nucleated RBC % Seg Neutrophils # Seg Neutrophils # Man Monocytes # (Manual) PT INR APTT D-Dimer Heparin Anti-Xa Level ABG pH ABG pO2 73.2 L ABG HCO3 33.8 H ABG O2 Saturation ABG Base Excess 8.7 H ABG Hemoglobin 8.5 L Oxyhemoglobin 94.1 L Sodium Potassium Chloride Carbon Dioxide BUN Creatinine Glucose POC Glucose 166 H 136 H Hemoglobin A1c Lactic Acid Calcium Phosphorus Magnesium Ferritin AST ALT Alkaline Phosphatase Lactate Dehydrogenase Troponin T C-Reactive Protein Total Protein Albumin LDL Cholesterol Direct Urine Creatinine Urine Total Protein Salicylates Acetaminophen 11/09/21 11/09/21 11/09/21 15:48 16:10 20:31 WBC RBC Hgb Hct MCH RDW Plt Count Lymph % (Auto) Lymph # (Auto) [place] # (Auto) Seg Neutrophils % Seg Neuts % (Manual) Lymphocytes % (Manual) Nucleated RBC % Seg Neutrophils # Seg Neutrophils # Man Monocytes # (Manual) PT INR APTT D-Dimer Heparin Anti-Xa Level ABG pH ABG pO2 ABG HCO3 ABG O2 Saturation ABG Base Excess ABG Hemoglobin Oxyhemoglobin Sodium Potassium 2.8 L* Chloride Carbon Dioxide 31 H BUN 53 H Creatinine 1.3 H Glucose 208 H POC Glucose 203 H 166 H Hemoglobin A1c Lactic Acid Calcium 7.9 L Phosphorus Magnesium Ferritin AST ALT Alkaline Phosphatase Lactate Dehydrogenase Troponin T C-Reactive Protein Total Protein Albumin LDL Cholesterol Direct Urine Creatinine Urine Total Protein Salicylates Acetaminophen 11/09/21 11/09/21 11/09/21 21:30 23:16 Unknown WBC RBC Hgb Hct MCH RDW Plt Count Lymph % (Auto) Lymph # (Auto) [place] # (Auto) Seg Neutrophils % Seg Neuts % (Manual) Lymphocytes % (Manual) Nucleated RBC % Seg Neutrophils # Seg Neutrophils # Man Monocytes # (Manual) PT INR APTT D-Dimer Heparin Anti-Xa Level 0.24 L ABG pH ABG pO2 ABG HCO3 ABG O2 Saturation ABG Base Excess ABG Hemoglobin Oxyhemoglobin Sodium Potassium Chloride Carbon Dioxide BUN 52 H Creatinine 1.4 H Glucose 185 H POC Glucose 172 H Hemoglobin A1c Lactic Acid Calcium 7.8 L Phosphorus Magnesium Ferritin AST ALT Alkaline Phosphatase Lactate Dehydrogenase Troponin T C-Reactive Protein Total Protein Albumin LDL Cholesterol Direct Urine Creatinine Urine Total Protein Salicylates Acetaminophen 11/10/21 11/10/21 11/10/21 02:00 04:17 04:17 WBC 24.5 H RBC 2.75 L Hgb 7.5 L Hct 22.9 L MCH 27 L RDW Plt Count Lymph % (Auto) Lymph # (Auto) [place] # (Auto) Seg Neutrophils % Seg Neuts % (Manual) Lymphocytes % (Manual) Nucleated RBC % Seg Neutrophils # Seg Neutrophils # Man Monocytes # (Manual) PT INR APTT D-Dimer Heparin Anti-Xa Level 0.26 L ABG pH ABG pO2 ABG HCO3 ABG O2 Saturation ABG Base Excess ABG Hemoglobin Oxyhemoglobin Sodium Potassium 2.9 L* Chloride Carbon Dioxide 35 H BUN 48 H Creatinine Glucose 212 H POC Glucose Hemoglobin A1c Lactic Acid Calcium 8.1 L Phosphorus Magnesium Ferritin AST ALT Alkaline Phosphatase Lactate Dehydrogenase Troponin T C-Reactive Protein Total Protein Albumin LDL Cholesterol Direct Urine Creatinine Urine Total Protein Salicylates Acetaminophen 11/10/21 11/10/21 11/10/21 05:01 08:39 11:03 WBC RBC Hgb Hct MCH RDW Plt Count Lymph % (Auto) Lymph # (Auto) [place] # (Auto) Seg Neutrophils % Seg Neuts % (Manual) Lymphocytes % (Manual) Nucleated RBC % Seg Neutrophils # Seg Neutrophils # Man Monocytes # (Manual) PT INR APTT D-Dimer Heparin Anti-Xa Level 0.12 L ABG pH ABG pO2 ABG HCO3 ABG O2 Saturation ABG Base Excess ABG Hemoglobin Oxyhemoglobin Sodium Potassium Chloride Carbon Dioxide BUN Creatinine Glucose POC Glucose 203 H 152 H Hemoglobin A1c Lactic Acid Calcium Phosphorus Magnesium Ferritin AST ALT Alkaline Phosphatase Lactate Dehydrogenase Troponin T C-Reactive Protein Total Protein Albumin LDL Cholesterol Direct Urine Creatinine Urine Total Protein Salicylates Acetaminophen 11/10/21 11/10/21 11/10/21 12:45 15:43 21:05 WBC RBC Hgb Hct MCH RDW Plt Count Lymph % (Auto) Lymph # (Auto) [place] # (Auto) Seg Neutrophils % Seg Neuts % (Manual) Lymphocytes % (Manual) Nucleated RBC % Seg Neutrophils # Seg Neutrophils # Man Monocytes # (Manual) PT INR APTT D-Dimer Heparin Anti-Xa Level ABG pH ABG pO2 ABG HCO3 ABG O2 Saturation ABG Base Excess ABG Hemoglobin Oxyhemoglobin Sodium 146 H Potassium 3.3 L Chloride Carbon Dioxide 31 H BUN 43 H Creatinine Glucose 155 H POC Glucose 139 H 139 H Hemoglobin A1c Lactic Acid Calcium 8.3 L Phosphorus Magnesium Ferritin AST ALT Alkaline Phosphatase Lactate Dehydrogenase Troponin T C-Reactive Protein Total Protein Albumin LDL Cholesterol Direct Urine Creatinine Urine Total Protein Salicylates Acetaminophen 11/10/21 11/11/21 11/11/21 23:25 03:49 03:49 WBC 22.1 H RBC 2.69 L Hgb 7.2 L Hct 22.7 L MCH 27 L RDW Plt Count Lymph % (Auto) Lymph # (Auto) [place] # (Auto) Seg Neutrophils % Seg Neuts % (Manual) Lymphocytes % (Manual) Nucleated RBC % Seg Neutrophils # Seg Neutrophils # Man Monocytes # (Manual) PT INR APTT D-Dimer Heparin Anti-Xa Level ABG pH ABG pO2 ABG HCO3 ABG O2 Saturation ABG Base Excess ABG Hemoglobin Oxyhemoglobin Sodium Potassium Chloride Carbon Dioxide 32 H BUN 44 H Creatinine 1.3 H Glucose 173 H POC Glucose 146 H Hemoglobin A1c Lactic Acid Calcium Phosphorus Magnesium Ferritin AST ALT Alkaline Phosphatase Lactate Dehydrogenase Troponin T C-Reactive Protein Total Protein Albumin LDL Cholesterol Direct Urine Creatinine Urine Total Protein Salicylates Acetaminophen 11/11/21 11/11/21 11/11/21 05:03 10:50 11:32 WBC RBC Hgb Hct MCH RDW Plt Count Lymph % (Auto) Lymph # (Auto) [place] # (Auto) Seg Neutrophils % Seg Neuts % (Manual) Lymphocytes % (Manual) Nucleated RBC % Seg Neutrophils # Seg Neutrophils # Man Monocytes # (Manual) PT INR APTT D-Dimer Heparin Anti-Xa Level ABG pH ABG pO2 ABG HCO3 ABG O2 Saturation ABG Base Excess ABG Hemoglobin Oxyhemoglobin Sodium Potassium Chloride Carbon Dioxide BUN Creatinine Glucose POC Glucose 152 H 129 H 133 H Hemoglobin A1c Lactic Acid Calcium Phosphorus Magnesium Ferritin AST ALT Alkaline Phosphatase Lactate Dehydrogenase Troponin T C-Reactive Protein Total Protein Albumin LDL Cholesterol Direct Urine Creatinine Urine Total Protein Salicylates Acetaminophen 11/11/21 13:53 WBC RBC Hgb Hct MCH RDW Plt Count Lymph % (Auto) Lymph # (Auto) [place] # (Auto) Seg Neutrophils % Seg Neuts % (Manual) Lymphocytes % (Manual) Nucleated RBC % Seg Neutrophils # Seg Neutrophils # Man Monocytes # (Manual) PT INR APTT D-Dimer Heparin Anti-Xa Level ABG pH 7.475 H ABG pO2 64.1 L ABG HCO3 32.4 H ABG O2 Saturation ABG Base Excess 8.0 H ABG Hemoglobin 7.6 L Oxyhemoglobin 94.0 L Sodium Potassium Chloride Carbon Dioxide BUN Creatinine Glucose POC Glucose Hemoglobin A1c Lactic Acid Calcium Phosphorus Magnesium Ferritin AST ALT Alkaline Phosphatase Lactate Dehydrogenase Troponin T C-Reactive Protein Total Protein Albumin LDL Cholesterol Direct Urine Creatinine Urine Total Protein Salicylates Acetaminophen Allied health notes reviewed: RT
--- NOTE | 2021-11-11 14:31 | Event Note ---
Date: 11/11/21 Extubated has some stridor. Racemic epinephrine, 2 doses ordered Keep in ICU overnight. PT/OT/SCUTCHER TENDER ordered Daughter updated
[2021-11-11] MEDS: EPINEPHrine RACEMIC 2.25% 0.5ML NEBU IH SCH ×2 (14:34→20:43)
--- NOTE | 2021-11-11 15:17 | XRay Report ---
LEFT KNEE 2 VIEWS PORTABLE 1331 INDICATION: left knee swelling and tenderness COMPARISON: None available. FINDINGS: Prominent degenerative changes are seen with prominent medial joint space narrowing and gen u varus. Moderate lateral and patellofemoral degenerative changes are seen. No fractures or dislocati ons are noted. There probably is a moderate joint effusion. Soft tissue swelling is seen anteriorly. Signer Name: Balaji Rice MD Signed: 11/11/2021 3:12 PM Workstation Name: [id number]
--- NOTE | 2021-11-11 16:59 | Progress Note ---
Subjective Date of service: 11/11/21 Principal diagnosis: AHRF; Cardiac arrest; R. pneumothorax; pneumonia; AMS; DVT's; SIERRA; Obesity Objective - Vital Signs Vital signs: Vital Signs - 12hr 11/11/21 11/11/21 11/11/21 05:00 05:30 06:00 Temperature Pulse Rate 67 66 67 Pulse Rate [ Anterior Bilateral Throughout] Pulse Rate [ From Monitor] Respiratory 17 16 15 Rate Respiratory Rate [Anterior Bilateral Throughout] Blood Pressure 140/72 116/60 106/64 O2 Sat by Pulse 100 96 98 Oximetry 11/11/21 11/11/21 11/11/21 06:30 07:00 07:16 Temperature Pulse Rate 68 71 69 Pulse Rate [ Anterior Bilateral Throughout] Pulse Rate [ From Monitor] Respiratory 17 16 Rate Respiratory Rate [Anterior Bilateral Throughout] Blood Pressure 106/64 107/71 107/71 O2 Sat by Pulse 100 99 100 Oximetry 11/11/21 11/11/21 11/11/21 07:30 07:31 08:00 Temperature 99.9 F H Pulse Rate 68 74 Pulse Rate [ Anterior Bilateral Throughout] Pulse Rate [ 74 From Monitor] Respiratory 17 21 Rate Respiratory Rate [Anterior Bilateral Throughout] Blood Pressure 122/68 118/67 O2 Sat by Pulse 98 96 Oximetry 11/11/21 11/11/21 11/11/21 08:30 09:00 09:30 Temperature Pulse Rate 73 77 75 Pulse Rate [ Anterior Bilateral Throughout] Pulse Rate [ From Monitor] Respiratory 27 H 23 21 Rate Respiratory Rate [Anterior Bilateral Throughout] Blood Pressure 125/62 140/70 139/68 O2 Sat by Pulse 96 96 97 Oximetry 11/11/21 11/11/21 11/11/21 10:00 10:21 10:22 Temperature Pulse Rate 80 83 82 Pulse Rate [ Anterior Bilateral Throughout] Pulse Rate [ From Monitor] Respiratory 21 Rate Respiratory Rate [Anterior Bilateral Throughout] Blood Pressure 153/75 153/75 153/75 O2 Sat by Pulse 97 Oximetry 11/11/21 11/11/21 11/11/21 10:30 11:00 11:24 Temperature 100.8 F H Pulse Rate 81 83 Pulse Rate [ Anterior Bilateral Throughout] Pulse Rate [ From Monitor] Respiratory 24 20 Rate Respiratory Rate [Anterior Bilateral Throughout] Blood Pressure 150/79 138/71 O2 Sat by Pulse 97 95 Oximetry 11/11/21 11/11/21 11/11/21 11:27 11:30 11:38 Temperature Pulse Rate 83 83 84 Pulse Rate [ Anterior Bilateral Throughout] Pulse Rate [ From Monitor] Respiratory 24 23 Rate Respiratory Rate [Anterior Bilateral Throughout] Blood Pressure 138/71 130/79 130/79 O2 Sat by Pulse 99 Oximetry 11/11/21 11/11/21 11/11/21 12:00 12:30 12:34 Temperature Pulse Rate 81 116 H Pulse Rate [ Anterior Bilateral Throughout] Pulse Rate [ 80 From Monitor] Respiratory 20 17 Rate Respiratory Rate [Anterior Bilateral Throughout] Blood Pressure 133/72 122/86 O2 Sat by Pulse 98 93 95 Oximetry 11/11/21 11/11/21 11/11/21 12:47 13:00 13:30 Temperature Pulse Rate 117 H 81 Pulse Rate [ Anterior Bilateral Throughout] Pulse Rate [ From Monitor] Respiratory 15 19 Rate Respiratory Rate [Anterior Bilateral Throughout] Blood Pressure 122/86 120/66 O2 Sat by Pulse 94 98 91 Oximetry 11/11/21 11/11/21 11/11/21 13:35 14:00 14:30 Temperature Pulse Rate 80 82 84 Pulse Rate [ Anterior Bilateral Throughout] Pulse Rate [ From Monitor] Respiratory 19 32 H Rate Respiratory Rate [Anterior Bilateral Throughout] Blood Pressure 149/72 149/72 129/69 O2 Sat by Pulse 100 96 Oximetry 11/11/21 11/11/21 11/11/21 14:32 15:00 15:30 Temperature Pulse Rate 87 85 Pulse Rate [ 86 Anterior Bilateral Throughout] Pulse Rate [ From Monitor] Respiratory 23 29 H Rate Respiratory 18 Rate [Anterior Bilateral Throughout] Blood Pressure 116/68 139/67 O2 Sat by Pulse 93 93 Oximetry 11/11/21 16:00 Temperature 98.9 F Pulse Rate 90 Pulse Rate [ Anterior Bilateral Throughout] Pulse Rate [ 90 From Monitor] Respiratory 26 H Rate Respiratory Rate [Anterior Bilateral Throughout] Blood Pressure 139/67 O2 Sat by Pulse 94 Oximetry - Lab 11/11/21 03:49 11/11/21 03:49 Most recent lab results ABG pH 7.475 pH Units (7.350-7.450) H 11/11/21 13:53 ABG pCO2 45.0 mm Hg 11/11/21 13:53 ABG pO2 64.1 mm Hg (80.0-90.0) L 11/11/21 13:53 ABG HCO3 32.4 mmol/L (20.0-26.0) H 11/11/21 13:53 ABG O2 Saturation 96.3 % (95.0-99.0) 11/11/21 13:53 Calcium 8.5 mg/dL (8.4-10.2) 11/11/21 03:49 Phosphorus 3.60 mg/dL (2.5-4.5) 11/11/21 03:49 Magnesium 2.20 mg/dL (1.7-2.3) 11/11/21 03:49 Urine Creatinine 190.9 mg/dL (0.1-20.0) H 11/04/21 Unknown Urine Sodium 10 mmol/L 11/04/21 Unknown Urine Total Protein 172 mg/dL (5-11.8) H 11/04/21 Unknown Medications & Allergies - Medications Allergies/Adverse Reactions: Allergies No Known Allergies Allergy (Verified 10/29/21 14:01) Home Medications: Home Medications Medication Instructions Recorded Confirmed Last Taken Type Unobtainable 11/10/21 11/10/21 Unknown History Active Medications: Generic Name Dose Route Start Last Admin Trade Name Freq PRN Reason Stop Dose Admin Acetaminophen 650 mg 10/29/21 17:04 11/11/21 13:35 Acetaminophen 325 Mg Tab PO 650 mg Q6H PRN Administration Pain, Mild (1-3) Acetaminophen 650 mg 10/29/21 17:04 Acetaminophen 650 Mg Rect Supp IA Q6H PRN Pain MILD(1-3)/Fever >100.5/NIEVES Amiodarone HCl 200 mg 11/08/21 10:00 11/11/21 10:23 Amiodarone 200 Mg Tab PO 200 mg QDAY RAMON Administration Lipase/Protease/Amylase 1 each 10/31/21 08:56 Lipase 10,500/Protease 25,000/Amylase 43,750 (Units) Dr Ivory FEEDTUBE PRN PRN For Clogged Feeding Tube Dextrose 0 ml 11/04/21 13:48 11/05/21 15:29 Dextrose 10% *Hypoglycemia IV 250 ml PRN PRN Administration Hypoglycemia Epinephrine 0.5 ml 11/11/21 14:30 11/11/21 14:34 Epinephrine Racemic 2.25% 0.5ml Nebu IH 11/11/21 20:01 0.5 ml Q6HRT RAMON Administration Famotidine 10 mg 11/06/21 10:00 11/11/21 10:20 Famotidine 10 Mg Tab PO 10 mg BID RAMON Administration Fentanyl 50 mcg 11/04/21 14:32 11/09/21 00:01 Fentanyl 100 Mcg/2 Ml Inj IV 50 mcg Q2H PRN Administration Pain, Moderate (4-6) Furosemide 40 mg 11/10/21 10:00 11/11/21 10:23 Furosemide 40 Mg Tab PO 40 mg QDAY RAMON Administration Heparin Sodium (Porcine) 4,300 unit 10/30/21 17:00 Heparin 10,000 Units/10 Ml Vial 40 unit/kg (4300 unit) IV Q6H PRN Anti-Xa Assay < 0.1 units/ml Hydralazine HCl 50 mg 11/09/21 14:00 11/11/21 13:35 Hydralazine 25 Mg Tab PO 50 mg Q8HR RAMON Administration Hydralazine HCl 10 mg 11/09/21 13:05 Hydralazine 20 Mg/1 Ml Inj IV Q4HR PRN Hypertension Hydrophilic Ointment 1 applic 10/29/21 14:29 11/09/21 08:51 Lip Therapy Vaseline TP 1 applic Q2HR PRN Administration Dry Lips NORepinephrine/NS 8 MG-250 ML 8 mg in 250 mls @ 3.75 mls/hr 10/29/21 15:00 11/04/21 07:00 Norepinephrine/Ns 8 Mg-250 Ml (Double Conc) IV 0 mcg/min TITRATE RAMON 0 mls/hr Titration Protocol 2 MCG/MIN Heparin Sodium/Sodium Chloride 25,000 unit in 500 mls @ 30 mls/hr 10/30/21 17:00 11/11/21 01:10 Heparin/ 0.45% Nacl-25,000 Unit/500 Ml IV 1,900 units/hr TITR RAMON 38 mls/hr Administration Protocol 1,500 UNITS/HR Dexmedetomidine HCl 200 mcg/ 50 mls @ 5.335 mls/hr 11/07/21 15:00 11/11/21 05:41 Sodium Chloride IV 0.9 mcg/kg/hr TITRATE RAMON 24.008 mls/hr Administration Protocol 0.2 MCG/KG/HR Insulin Glargine 20 units 11/10/21 22:00 11/10/21 21:10 Insulin Glargine 100 Units/Ml SUB-Q 20 units QHS RAMON Administration Insulin Human Lispro 0 unit 10/30/21 16:00 11/11/21 00:33 Insulin Lispro 100 Unit/Ml SUB-Q Not Given Q6HR [facility] Protocol Isosorbide Mononitrate 30 mg 11/08/21 10:00 11/11/21 10:21 Isosorbide Mononitrate Er 30 Mg Tab PO 30 mg QDAY RAMON Administration Metoprolol Tartrate 50 mg 11/07/21 12:00 11/11/21 11:38 Metoprolol Tartrate 50 Mg Tab FEEDTUBE 50 mg Q6H RAMON Administration Multi-Ingred Cream/Lotion/Oil/Oint 1 applic 10/29/21 14:29 11/06/21 09:25 Mineral Oil/Petrolatum, White Ophth Oint 3.5 Gm OU 1 applic Q4HR PRN Administration Dry Eye(s) Potassium Chloride 40 meq 11/10/21 22:00 11/11/21 10:20 Potassium Chloride 20 Meq Packet FEEDTUBE 11/11/21 22:01 40 meq BID RAMON Administration Senna/Docusate Sodium 1 tab 10/29/21 15:00 11/11/21 10:22 Sennosides/Docusate Sodium 8.6/50 Mg Tab FEEDTUBE 1 tab BID RAMON Administration Simple Syrup 15 ml 10/31/21 08:56 Simple Syrup 15 Ml FEEDTUBE PRN PRN Hypoglycemia Simple Syrup 30 ml 10/31/21 08:56 Simple Syrup 15 Ml FEEDTUBE PRN PRN Hypoglycemia Sodium Bicarbonate 325 mg 10/31/21 08:56 Sodium Bicarbonate 325 Mg Tab FEEDTUBE PRN PRN For Clogged Feeding Tube Sodium Chloride 10 ml 10/29/21 22:00 11/11/21 10:36 Sodium Chloride 0.9% 10 Ml Flush Syringe IV 10 ml BID RAMON Administration Sodium Chloride 10 ml 10/29/21 17:04 Sodium Chloride 0.9% 10 Ml Flush Syringe IV PRN PRN LINE FLUSH Spironolactone 25 mg 11/10/21 10:00 11/11/21 10:22 Spironolactone 25 Mg Tab PO 25 mg QDAY RAMON Administration
[2021-11-12] MEDS: HEPARIN/ 0.45% NACL DRIP 25,000 UNIT/500 ML BAG IV SCH (03:05)
--- NOTE | 2021-11-12 03:23 | XRay Report ---
. XR chest 1V ap INDICATION / CLINICAL INFORMATION: Respiratory Failure, post extubation. COMPARISON: 11/10/2021 FINDINGS: SUPPORT DEVICES: Interval extubation and removal of esophageal temperature probe and enteric catheter . Right IJ central venous catheter is stable. HEART /PULMONARY VASCULATURE: Unchanged. LUNGS / PLEURA: Lung parenchyma is not significantly changed. No pneumothorax. IMPRESSION: Interval extubation, otherwise stable appearance of the chest. Signer Name: Ariel Magana MD Signed: 11/12/2021 3:19 AM Workstation Name: [id number]
[2021-11-12 03:48] LABS: Hemoglobin 6.3 gm/dl (10.1-14.3); Mean Corpuscular HGB Conc 32 % (30-34); Mean Corpuscular Volume 84 fl (79-97); Platelet Count 256 K/mm3 (140-440); Red Blood Count 2.37 M/mm3 (3.65-5.03); Red Cell Distribution Width 15.5 % (13.2-15.2)
[2021-11-12 03:57] LABS: Calcium 8.2 mg/dL (8.4-10.2)
[2021-11-12] MEDS ORDERED: SODIUM CHLORIDE 0.9% 500 ML 500 ML IV ONE ×2 (04:01→16:56)
[2021-11-12] MEDS: DEXTROSE 10% *Hypoglycemia IV PRN (05:45)
[2021-11-12] MEDS: INSULIN LISPRO 100 UNIT/ML SUB-Q SCH ×3 (07:25→17:23)
[2021-11-12] MEDS ORDERED: SODIUM CHLORIDE 0.9% 1000 ML 1,000 ML ONE (10:11)
[2021-11-12] MEDS ORDERED: SODIUM CHLORIDE 0.9% 500 ML 500 ML ONE (10:30)
--- NOTE | 2021-11-12 11:45 | Progress Note ---
<SHAMEKA JOHNSTON - Last Filed: 11/12/21 16:15> Assessment and Plan Assessment and plan: This is a 66-year-old female with past medical history of HTN and Obesity admitted for septic shock, s/p cardiac arrest with ROSC in the field now intubated and on ventilatory support Hospital Course to Date: 10/30: Intubated and sedated, on fentanyl gtt. Open eyes spontaneously but does not follow any commands. On vasopressors, titrate as tolerated for MAP above 65. Patient febrile overnight, continue empiric IV Abx, culture data and COVID PCR pending. Patient is also s/p CT placement due to spontaneous pneumothorax. 2D echo is pending and Cardiology is consulted. 10/31: Patient remains intubated and following commands. Levophed drip stopped and potassium repleted. Patient started on tube feeding. Remains in soft bilateral restraints. 11/01: RN noted ST changes on BSM and 12 lead EKG obtained which showed ST. Given Ativan 1mg for agitation as she is maxed on fentanyl drip and IV push fentanyl d id not seem to help. Patient was started on CPAP this morning by RT but remained on fentanyl drip and was having periods of apnea. Plan was to retry CPAP again in the p.m. with sedation off. 11/02: Rate increased r/t hypercapnea on ABG, sedation reduced. Given kionex for hyperkalemia and was started on levophed overnight for hypotension. 11/03: Overnight patient had tachycardia and was given Cardizem and Lopressor. Lopressor was repeated in the a.m. due to tachycardia. Patient will be started on amiodarone with a bolus per cardiology. Patient started on normal saline per liter per [facility] and steroids for angioedema. Noted to have bright red blood when suctioned from [place] ETT. Remains on heparin drip as H/H is stable for now. Will reevaluate. Fentanyl drip was restarted last night due to agitation. Dr. Flores updated family today 11/04: Patient was sedated on fentanyl however off sedation is able to follow commands, a.m. labs completed in the p.m. and show hyperkalemia with increased renal function studies. Nephrology, neurology consulted by [facility]. Given Kayexalate, insulin and D50 for hyperkalemia. Patient remains on amiodarone. 11/05: Patient needed to be sedated on fentanyl again to today. overnight krishna was replaced. Hyperkalemia->given kionex 60 for 5.6. Repeat K 6-> Dr. Grant informed and requested bumex, kionex, insulin, d50, calcium gluconate and sodium bicarb with repeat BMP in 2 hours which were placed. HR remains elevated. 11/06: Patient remained in atrial fibrillation/atrial flutter with heart rate in the 150s despite being on amnio drip and was given amnio bolus, Cardizem bolus and started on Cardizem drip by cardiology. Patient is on beta-blockers p.o. scheduled and to feedings changed to Nepro. Kayexalate was given in the morning by nephrology due to hyperkalemia. 11/07: Patient is only responsive to mild stimuli, precedex added in an attempt to wean off fentanyl gtt to better assess her mental status. Neurology also on consult, pending MRI and EEG. Patient remains in Aflutter this am, HR in the 80 to 90s, still on amiodarone and heparin gtt. 11/08: Fentanyl gtt is off, only on precedex gtt. Patient is still not following any commands. MRI brain and EEG completed. Neuro recommendations noted, sedatives agents decreased. FWF added for hypernatremia and low K repleted, repeat labs ordered. Placed a call and spoke with patient's daughter, Eva Brown . She was updated on patient's conditions and status. All questions and concerns were voiced at this time. 11/09: Patient is awake and alert this am, following commands and appropriate. Remains on precedex gtt, plan for possible PST today. Hypertensive overnight, meds adjusted by Cardio and PRN Hydralazine added for SBP greater than 160. CT dislodged overnight, CXR is stable with no significant change. F/U CXR in the am. Patient's daughter, Eva Brown, visited with patient. She was updated on patient's status and goal of care for today. All questions and concerns were voiced at this time. 11/10: Mentation remains intact, still on precedex gtt. This am CXR noted still with fluid overload s/p X1 dose of IV lasix, good response from IV lasix overnight. Hypernatremia improved, D5W d/dayday. Still with persistent hypokalemia, continue electrolytes replacement and frequent lab check. Daily IV lasix and aldactone added by Cardio. Patient is also with persistent low grade fevers overnight, leukocytosis with mild improvement this am. Will get a repeat sputum culture, hold off on IV abx for now. Consider ID consult if fevers and leukocytosis persist. Patient tolerated PST X4hrs yesterday. PST again today, plan to wean to extubate if tolerated. 11/11: IAM overnight. Off precedex gtt and tolerated PST this am. Plan to wean to extubate today. Additional IV lasix given, plan to keep patient at a net negative balance for better lung compliance. F/U CXR in the am. K improved this am, repeat BMP this afternoon since diuresing. Remains with low grade fevers, leukocytosis downtrending, will continue to monitor. Speech/PT/OT ordered 11/12: S/p extubation, now stable on 3L NC. This am CXR noted with no significant changes, lasix changed to IV X4days BID. Drop in H&H this am, and Lt. flank ecchymosis noted. Heparin gtt on hold for now and orders placed for 1 unit of PRBCs and Ct Abd/Pelvis w/o con to r/o retroperitoneal bleed. Pending speech swallow eval, keep patient NPO for now. Patient is stable for IMCU status Assessment and Plan #Hypertension #New Onset Atrial fibrillation/atrial flutter #HFrEF #s/p Cardiac Arrest with ROSC - Outside hospital cardiac arrest with ROSC - New onset Afib/Aflutter--> SR on the monitor this am - Cardiology consulted, appreciate recommendations - S/p Cardizem gtt- d/c due to low EF; now on PO Amio - 10/30 Echocardiogram shows left ventricular systolic function severely decreased, LVEF 25 to 30%, no pericardial effusion - Hypertensive overnight, meds adjusted by Cardio - PRN Hydralazive for SBP greater than 160 - Continue BB per Cardio - IV lasix and aldactone - Continue blood pressure monitor per protocol - Strick I&Os and daily weight #Acute Hypoxemic Respiratory Failure #Spontaneous Pneumothorax s/p CT placement - Intubated in the filed post cardiac arrest on 10/29 - 11/11 s/p extubation - Now on 3L NC - [facility] consulted, appreciate recommendations - Aspiration precaution HOB above 30 - Continue O2 supplementation and wean as tolerated - Continue SPO2 monitoring for SPO2 goal above 92% #Agitation #Acute Metabolic Encephalopathy-improved - Awake and appropriate this am, following commands - Now with restless and agitation, continue precedex gtt - Titrate precedex for RASS goal of 0 to -1 - Neurology on consult - EEG and MRI noted, Neuro recommend to cut down on sedation as possible - Continue to hold Seroquel - Avoid benzodiazepine to reduce the possibility of delirium - Prn analgesia for CPOT greater than 3 #Hypokalemia-improved #Acute Kidney Injury (SIERRA) most likely ATN - Due to hypoperfusion/hypotension and septic shock - Nephrology consulted, appreciate recommendations - Strict intake and output - Avoid nephrotoxic medications; Renally dose medications - Monitor and replace electrolytes as needed - Trend BMP #Septic Shock #Leukocytosis - s/p cardiac arrest with ROSC in the field - Presented febrile, with elevated lactic, leukocytosis, and hypotnesive required pressors - Blood culture, urine and sputum culture are negative - Patient completed X5days course of IV Abx - Persistent low grade fevers, WBCs with mild improvement - Repeat Sputum culture pending - Hold off on any IV Abx for now - Will continue to trend CBC #Anemia - Low H&H this am - 1unit of PRBCs ordered - AC- heparin gtt on hold - Lt. flank ecchymosis noted- CT abd/Pelvis pending to r/o retroperitoneal bleed - Monitor for s/s of active bleeding - trend CBC #Acute BLE DVT - [place] [id number] on admit - CTA chest with no evidence of PE - 2/6 BLE doppler + acute DVT in the left posterior tibial vein and bilateral peroneal veins - Heparin gtt on hold due anemia #Transaminitis #Shock liver - Most likely reactive s/p cardiac arrest - LFT down trending - Continue to trend LTFs #hypoglycemia #Hyperglycemia-resolved - Hbg A1C 6.7 - Most likely due to NPO status - Pending speech swallow eval, D5w initiated - Continue SSI Q6hrs - Will hold Lantus for tonight - Avoid Hypoglycemia The high probability of a clinically significant, sudden or life threatening deterioration of the [multiple] system(s) required my full and direct attention, intervention and personal management. The aggregate critical care time was [60] minutes. This time is in addition to time spent performing reported procedures but includes the following: [x] Data Review and interpretation [x] Patient assessment and monitoring of vital signs [x] Documentation [x] Medication orders and management Disposition Plan: ICU Total Time Spent with Patient (Minutes): 60 History Interval history: Patient seen and examined at the bedside. Patient is s/p extubation, AAO, fol lowing commands. Stable on 3L NC. Patient ermains on precedex gtt due to restless and increase agitation. IAM overnight Hospitalist Physical - Constitutional Vitals: Temp Pulse Resp BP Pulse Ox 100.5 F H 78 33 H 143/77 98 11/12/21 10:35 11/12/21 10:35 11/12/21 10:35 11/12/21 10:35 11/12/21 10:35 General appearance: Present: no acute distress, obese - EENT Eyes: Present: PERRL, EOM intact ENT: hearing intact - Neck Neck: Present: normal ROM - Respiratory Respiratory effort: normal Respiratory: bilateral: rhonchi - Cardiovascular Rhythm: regular Heart Sounds: Present: S1 & S2 - Extremities Extremities: no ischemia, pulses intact, pulses symmetrical Extremity abnormal: edema - Peripheral Assessment Generalized Edema Type: Pitting Edema Degree: 2+ Capillary Refill: < 3 seconds Skin Temperature: Warm Peripheral Pulses: within normal limits - Abdominal General gastrointestinal: soft, non-distended, normal bowel sounds - Integumentary Integumentary: Present: warm, dry, erythema (Lt. flank ecchymosis) - Psychiatric Psychiatric: cooperative, other (Restless) - Neurologic Neurologic: moves all extremities - Allied Health Allied health notes reviewed: nursing, case management HEART Score - HEART Score Troponin: Troponin T 1.150 ng/mL (0.00-0.029) H* D 10/29/21 22:34 Results - Labs CBC & Chem 7: 11/12/21 03:30 11/12/21 03:30 Labs: Laboratory Last Values WBC 17.7 K/mm3 (4.5-11.0) H 11/12/21 03:30 RBC 2.37 M/mm3 (3.65-5.03) L 11/12/21 03:30 Hgb 6.3 gm/dl (10.1-14.3) L 11/12/21 03:30 Hct 20.0 % (30.3-42.9) L 11/12/21 03:30 MCV 84 fl (79-97) 11/12/21 03:30 MCH 27 pg (28-32) L 11/12/21 03:30 MCHC 32 % (30-34) 11/12/21 03:30 RDW 15.5 % (13.2-15.2) H 11/12/21 03:30 Plt Count 256 K/mm3 (140-440) 11/12/21 03:30 Lymph % (Auto) 6.2 % (13.4-35.0) L 10/30/21 04:30 Dickenson % (Auto) 5.5 % (0.0-7.3) 10/30/21 04:30 Eos % (Auto) 0.1 % (0.0-4.3) 10/30/21 04:30 Baso % (Auto) 0.1 % (0.0-1.8) 10/30/21 04:30 Lymph # (Auto) 1.0 K/mm3 (1.2-5.4) L 10/30/21 04:30 Dickenson # (Auto) 0.9 K/mm3 (0.0-0.8) H 10/30/21 04:30 Eos # (Auto) 0.0 K/mm3 (0.0-0.4) 10/30/21 04:30 Baso # (Auto) 0.0 K/mm3 (0.0-0.1) 10/30/21 04:30 Add Manual Diff Complete 11/07/21 06:30 Total Counted 100 11/07/21 06:30 Seg Neutrophils % 88.1 % (40.0-70.0) H 10/30/21 04:30 Seg Neuts % (Manual) 77.0 % (40.0-70.0) H 11/07/21 06:30 Band Neutrophils % 1.0 % 11/07/21 06:30 Lymphocytes % (Manual) 11.0 % (13.4-35.0) L 11/07/21 06:30 Reactive Lymphs % (Man) 3.0 % 11/07/21 06:30 Monocytes % (Manual) 2.0 % (0.0-7.3) 11/07/21 06:30 Eosinophils % (Manual) 0 % (0.0-4.3) 11/07/21 06:30 Basophils % (Manual) 0 % (0.0-1.8) 11/07/21 06:30 Metamyelocytes % 1.0 % 11/07/21 06:30 Myelocytes % 5.0 % 11/07/21 06:30 Promyelocytes % 0 % 11/07/21 06:30 Blast Cells % 0 % 11/07/21 06:30 Nucleated RBC % 2.0 % (0.0-0.9) H 11/07/21 06:30 Seg Neutrophils # 14.2 K/mm3 (1.8-7.7) H 10/30/21 04:30 Seg Neutrophils # Man 12.3 K/mm3 (1.8-7.7) H 11/07/21 06:30 Band Neutrophils # 0.2 K/mm3 11/07/21 06:30 Lymphocytes # (Manual) 1.8 K/mm3 (1.2-5.4) 11/07/21 06:30 Abs React Lymphs (Man) 0.5 K/mm3 11/07/21 06:30 Monocytes # (Manual) 0.3 K/mm3 (0.0-0.8) 11/07/21 06:30 Eosinophils # (Manual) 0.0 K/mm3 (0.0-0.4) 11/07/21 06:30 Basophils # (Manual) 0.0 K/mm3 (0.0-0.1) 11/07/21 06:30 Metamyelocytes # 0.2 K/mm3 11/07/21 06:30 Myelocytes # 0.8 K/mm3 11/07/21 06:30 Promyelocytes # 0.0 K/mm3 11/07/21 06:30 Blast Cells # 0.0 K/mm3 11/07/21 06:30 WBC Morphology Not Reportable 11/07/21 06:30 Hypersegmented Neuts Not Reportable 11/07/21 06:30 Hyposegmented Neuts Not Reportable 11/07/21 06:30 Hypogranular Neuts Not Reportable 11/07/21 06:30 Smudge Cells Not Reportable 11/07/21 06:30 Toxic Granulation Not Reportable 11/07/21 06:30 Toxic Vacuolation Not Reportable 11/07/21 06:30 Dohle Bodies Not Reportable 11/07/21 06:30 Pelger-Huet Anomaly Not Reportable 11/07/21 06:30 Manny Rods Not Reportable 11/07/21 06:30 Platelet Estimate Consistent w auto 11/07/21 06:30 Clumped Platelets Not Reportable 11/07/21 06:30 Plt Clumps, EDTA Not Reportable 11/07/21 06:30 Large Platelets 1+ 11/07/21 06:30 Giant Platelets Not Reportable 11/07/21 06:30 Platelet Satelliting Not Reportable 11/07/21 06:30 Plt Morphology Comment Not Reportable 11/07/21 06:30 RBC Morphology Not Reportable 11/07/21 06:30 Dimorphic RBCs Not Reportable 11/07/21 06:30 Polychromasia Not Reportable 11/07/21 06:30 Hypochromasia 1+ 11/07/21 06:30 Poikilocytosis Not Reportable 11/07/21 06:30 Anisocytosis Not Reportable 11/07/21 06:30 Microcytosis Not Reportable 11/07/21 06:30 Macrocytosis Not Reportable 11/07/21 06:30 Spherocytes 1+ 11/07/21 06:30 Pappenheimer Bodies Not Reportable 11/07/21 06:30 Sickle Cells Not Reportable 11/07/21 06:30 Target Cells 1+ 11/07/21 06:30 Tear Drop Cells Not Reportable 11/07/21 06:30 Ovalocytes Not Reportable 11/07/21 06:30 Helmet Cells Not Reportable 11/07/21 06:30 [place] Bodies Not Reportable 11/07/21 06:30 [place] Rings Not Reportable 11/07/21 06:30 [place] Cells Not Reportable 11/07/21 06:30 Bite Cells Not Reportable 11/07/21 06:30 Crenated Cell Not Reportable 11/07/21 06:30 Elliptocytes Not Reportable 11/07/21 06:30 Acanthocytes (Spur) Not Reportable 11/07/21 06:30 Rouleaux Not Reportable 11/07/21 06:30 Hemoglobin C Crystals Not Reportable 11/07/21 06:30 Schistocytes Not Reportable 11/07/21 06:30 Malaria parasites Not Reportable 11/07/21 06:30 Magdy Bodies Not Reportable 11/07/21 06:30 Hem Pathologist Commnt No 11/07/21 06:30 PT 17.2 Sec. (12.2-14.9) H 10/30/21 16:30 INR 1.27 (0.87-1.13) H 10/30/21 16:30 APTT 44.4 Sec. (24.2-36.6) H 10/30/21 16:30 D-Dimer > 16704 ng/mlDDU (0-234) H 10/30/21 Unknown Heparin Anti-Xa Level 0.62 U.I./ml (0.3-0.7) 11/12/21 03:30 ABG pH 7.475 pH Units (7.350-7.450) H 11/11/21 13:53 ABG pCO2 45.0 mm Hg 11/11/21 13:53 ABG pO2 64.1 mm Hg (80.0-90.0) L 11/11/21 13:53 ABG HCO3 32.4 mmol/L (20.0-26.0) H 11/11/21 13:53 ABG O2 Saturation 96.3 % (95.0-99.0) 11/11/21 13:53 ABG O2 Content 10.1 (0.0-44) 11/11/21 13:53 ABG Base Excess 8.0 mmol/L (-2.0-3.0) H 11/11/21 13:53 ABG Hemoglobin 7.6 gm/dl (12.0-16.0) L 11/11/21 13:53 ABG Carboxyhemoglobin 1.8 % (0.0-5.0) 11/11/21 13:53 ABG Methemoglobin 0.5 % (0.0-1.5) 11/11/21 13:53 Oxyhemoglobin 94.0 % (95.0-99.0) L 11/11/21 13:53 FiO2 32 % 11/11/21 13:53 Sodium 145 mmol/L (137-145) 11/12/21 03:30 Potassium 3.9 mmol/L (3.6-5.0) 11/12/21 03:30 Chloride 106.1 mmol/L (98-107) 11/12/21 03:30 Carbon Dioxide 33 mmol/L (22-30) H 11/12/21 03:30 Anion Gap 10 mmol/L 11/12/21 03:30 BUN 38 mg/dL (7-17) H 11/12/21 03:30 Creatinine 1.3 mg/dL (0.6-1.2) H 11/12/21 03:30 Estimated GFR 49 ml/min 11/12/21 03:30 BUN/Creatinine Ratio 29 % 11/12/21 03:30 Glucose 102 mg/dL (65-100) H 11/12/21 03:30 POC Glucose 81 mg/dL (70-105) 11/12/21 06:08 Hemoglobin A1c 6.7 % (4-6) H 10/31/21 04:30 Lactic Acid 0.70 mmol/L (0.7-2.0) 10/31/21 15:45 Calcium 8.2 mg/dL (8.4-10.2) L 11/12/21 03:30 Phosphorus 4.00 mg/dL (2.5-4.5) 11/12/21 03:30 Magnesium 1.90 mg/dL (1.7-2.3) 11/12/21 03:30 Ferritin 208.4 ng/mL (10.0-200.0) H 10/30/21 Unknown Total Bilirubin < 0.20 mg/dL (0.1-1.2) 11/06/21 02:35 AST 21 units/L (5-40) 11/06/21 02:35 ALT 77 units/L (7-56) H 11/06/21 02:35 Alkaline Phosphatase 84 units/L (35-129) 11/06/21 02:35 Ammonia 31.0 umol/L (25-60) 10/29/21 15:10 Lactate Dehydrogenase 469 units/L (91-180) H 10/30/21 Unknown Troponin T 1.150 ng/mL (0.00-0.029) H* D 10/29/21 22:34 C-Reactive Protein 13.40 mg/dL (0.00-1.30) H 10/30/21 Unknown Total Protein 6.3 g/dL (6.3-8.2) 11/06/21 02:35 Albumin 3.0 g/dL (3.9-5) L 11/06/21 02:35 Albumin/Globulin Ratio 0.9 % 11/06/21 02:35 Triglycerides 68 mg/dL (2-149) 10/29/21 19:40 Cholesterol 98 mg/dL (50-199) 10/29/21 19:40 LDL Cholesterol Direct 43 mg/dL (50-130) L 10/29/21 19:40 HDL Cholesterol 50 mg/dL (40-59) 10/29/21 19:40 Cholesterol/HDL Ratio 1.96 % 10/29/21 19:40 Procalcitonin 61.95 ng/mL (<0.15) 10/30/21 Unknown TSH 3.080 mlU/mL (0.270-4.200) 10/29/21 15:10 Urine Color Straw (Yellow) 10/29/21 18:15 Urine Turbidity Clear (Clear) 10/29/21 18:15 Urine pH 7.0 (5.0-7.0) 10/29/21 18:15 Ur Specific [place] 1.018 (1.003-1.030) 10/29/21 18:15 Urine Protein 100 mg/dl mg/dL (Negative) 10/29/21 18:15 Urine Glucose (UA) 150 mg/dL (Negative) 10/29/21 18:15 Urine Ketones Neg mg/dL (Negative) 10/29/21 18:15 Urine Blood Mod (Negative) 10/29/21 18:15 Urine Nitrite Neg (Negative) 10/29/21 18:15 Urine Bilirubin Neg (Negative) 10/29/21 18:15 Urine Urobilinogen < 2.0 mg/dL (<2.0) 10/29/21 18:15 Ur Leukocyte Esterase Neg (Negative) 10/29/21 18:15 Urine WBC (Auto) 5.0 /HPF (0.0-6.0) 10/29/21 18:15 Urine RBC (Auto) 2.0 /HPF (0.0-6.0) 10/29/21 18:15 U Epithel Cells (Auto) < 1.0 /HPF (0-13.0) 10/29/21 18:15 Urine Mucus Few /HPF 10/29/21 18:15 Urine Eosinophils None seen (None Seen) 11/04/21 Unknown Urine Creatinine 190.9 mg/dL (0.1-20.0) H 11/04/21 Unknown Protein/Creatinin Ratio 0.90 11/04/21 Unknown Urine Sodium 10 mmol/L 11/04/21 Unknown Urine Total Protein 172 mg/dL (5-11.8) H 11/04/21 Unknown Salicylates < 0.3 mg/dL (2.8-20.0) L 10/29/21 15:10 Urine Opiates Screen Negative 10/29/21 18:15 Urine Methadone Screen Negative 10/29/21 18:15 Acetaminophen 5.0 ug/mL (10.0-30.0) L 10/29/21 15:10 Ur Barbiturates Screen Negative 10/29/21 18:15 Ur Phencyclidine Scrn Negative 10/29/21 18:15 Ur Amphetamines Screen Negative 10/29/21 18:15 U Benzodiazepines Scrn Negative 10/29/21 18:15 Urine Cocaine Screen Negative 10/29/21 18:15 U Marijuana (THC) Screen Negative 10/29/21 18:15 Drugs of Abuse Note Disclamer 10/29/21 18:15 Plasma/Serum Alcohol < 0.01 % (0-0.07) 10/29/21 15:10 Coronavirus (PCR) Negative (Negative) 10/30/21 Unknown Blood Type O POSITIVE 11/12/21 04:15 Antibody Screen Negative 11/12/21 04:15 Crossmatch See Detail 11/12/21 04:15 Microbiology: Microbiology 11/10/21 11:12 Tracheal Aspirate Sputum Culture - Preliminary Krishna/IV: Voiding Method Indwelling Catheter Active Medications - Current Medications Current Medications: Generic Name Dose Route Start Last Admin Trade Name Freq PRN Reason Stop Dose Admin Acetaminophen 650 mg 10/29/21 17:04 11/11/21 13:35 Acetaminophen 325 Mg Tab PO 650 mg Q6H PRN Administration Pain, Mild (1-3) Acetaminophen 650 mg 10/29/21 17:04 Acetaminophen 650 Mg Rect Supp VA Q6H PRN Pain MILD(1-3)/Fever >100.5/NIEVES Amiodarone HCl 200 mg 11/08/21 10:00 11/11/21 10:23 Amiodarone 200 Mg Tab PO 200 mg QDAY RAMON Administration Lipase/Protease/Amylase 1 each 10/31/21 08:56 Lipase 10,500/Protease 25,000/Amylase 43,750 (Units) Dr Ivory FEEDTUBE PRN PRN For Clogged Feeding Tube Dextrose 0 ml 11/04/21 13:48 11/12/21 05:45 Dextrose 10% *Hypoglycemia IV 50 ml PRN PRN Administration Hypoglycemia Famotidine 10 mg 11/06/21 10:00 11/11/21 21:09 Famotidine 10 Mg Tab PO Not Given BID [facility] Fentanyl 50 mcg 11/04/21 14:32 11/09/21 00:01 Fentanyl 100 Mcg/2 Ml Inj IV 50 mcg Q2H PRN Administration Pain, Moderate (4-6) Furosemide 40 mg 11/12/21 18:00 Furosemide 40 Mg/4 Ml Inj IV 11/16/21 17:59 0600,1800 [facility] Furosemide 40 mg 11/17/21 10:00 Furosemide 40 Mg Tab PO QDAY [facility] Heparin Sodium (Porcine) 4,300 unit 10/30/21 17:00 Heparin 10,000 Units/10 Ml Vial 40 unit/kg (4300 unit) IV Q6H PRN Anti-Xa Assay < 0.1 units/ml Hydralazine HCl 50 mg 11/09/21 14:00 11/11/21 21:06 Hydralazine 25 Mg Tab PO Not Given Q8HR [facility] Hydralazine HCl 10 mg 11/09/21 13:05 Hydralazine 20 Mg/1 Ml Inj IV Q4HR PRN Hypertension Hydrophilic Ointment 1 applic 10/29/21 14:29 11/09/21 08:51 Lip Therapy Vaseline TP 1 applic Q2HR PRN Administration Dry Lips NORepinephrine/NS 8 MG-250 ML 8 mg in 250 mls @ 3.75 mls/hr 10/29/21 15:00 11/04/21 07:00 Norepinephrine/Ns 8 Mg-250 Ml (Double Conc) IV 0 mcg/min TITRATE RAMON 0 mls/hr Titration Protocol 2 MCG/MIN Dexmedetomidine HCl 400 mcg/ 100 mls @ 5.335 mls/hr 11/11/21 21:00 11/12/21 04:40 Sodium Chloride IV 0.6 mcg/kg/hr TITRATE RAMON 16.005 mls/hr Administration Protocol 0.2 MCG/KG/HR Insulin Glargine 20 units 11/12/21 22:00 Insulin Glargine 100 Units/Ml SUB-Q QHS [facility] Insulin Human Lispro 0 unit 10/30/21 16:00 11/11/21 18:00 Insulin Lispro 100 Unit/Ml SUB-Q Not Given Q6HR [facility] Protocol Isosorbide Mononitrate 30 mg 11/08/21 10:00 11/11/21 10:21 Isosorbide Mononitrate Er 30 Mg Tab PO 30 mg QDAY RAMON Administration Metoprolol Tartrate 50 mg 11/07/21 12:00 11/11/21 17:15 Metoprolol Tartrate 50 Mg Tab FEEDTUBE 50 mg Q6H [facility] Administration Multi-Ingred Cream/Lotion/Oil/Oint 1 applic 10/29/21 14:29 11/06/21 09:25 Mineral Oil/Petrolatum, White Ophth Oint 3.5 Gm OU 1 applic Q4HR PRN Administration Dry Eye(s) Senna/Docusate Sodium 1 tab 10/29/21 15:00 11/11/21 21:06 Sennosides/Docusate Sodium 8.6/50 Mg Tab FEEDTUBE Not Given BID RAMON Simple Syrup 15 ml 10/31/21 08:56 Simple Syrup 15 Ml FEEDTUBE PRN PRN Hypoglycemia Simple Syrup 30 ml 10/31/21 08:56 Simple Syrup 15 Ml FEEDTUBE PRN PRN Hypoglycemia Sodium Bicarbonate 325 mg 10/31/21 08:56 Sodium Bicarbonate 325 Mg Tab FEEDTUBE PRN PRN For Clogged Feeding Tube Sodium Chloride 10 ml 10/29/21 22:00 11/11/21 21:07 Sodium Chloride 0.9% 10 Ml Flush Syringe IV 10 ml BID RAMON Administration Sodium Chloride 10 ml 10/29/21 17:04 Sodium Chloride 0.9% 10 Ml Flush Syringe IV PRN PRN LINE FLUSH Spironolactone 25 mg 11/10/21 10:00 11/11/21 10:22 Spironolactone 25 Mg Tab PO 25 mg QDAY RAMON Administration Nutrition/Malnutrition Assess - Dietary Evaluation Nutrition/Malnutrition Findings: Nutrition Notes Start: 10/30/21 09:50 Freq: Status: Active Protocol: Document 11/08/21 09:54 MEENU (Rec: 11/08/21 10:20 MEENU [id number]) Nutrition Notes Initial or Follow up Reassessment Current Diagnosis Acute Kidney Injury,Sepsis, Heart Failure,Respiratory Failure Other Pertinent Diagnosis SIERRA/ATN, s/p Cardiac Arrest, DVT, Anemia, Hyperkalemia. Current Diet TF-Nepro w/CARBSTEADY @ 37 ml/ hr (since D 11/06). Labs/Tests 11/08: Na 151, K 3.1, Cl 107.3 , CO2 31, BUN 82, Crea 1.8, Glu 232, Ca 8.1. Pertinent Medications 11/08: Insulin, others nutritionally unremarkable. Height 5 ft 10 in Weight 106.7 kg [place] Body Weight (kg) 68.18 BMI 33.7 Weight change and time frame No body weight change reported in 1 week. Weight Status Obese Subjective/Other Information RD consult for routine F/U on TF tolerance. TF continues as prescribed and well tolerated, according to RN over the phone. Pt continues on Mechanical ventilation. Percent of energy/protein needs met: Prescribed Nepro w/CARBSTEADY @ 37 ml/hr provides for energy /protein needs (1,598 Kcal/72 g) during LOS, 100% Kcal; 100% AA. Burn Absent Trauma Absent GI Symptoms None Food Allergy No Skin Integrity/Comment Clear, warm, dry. Current % PO Other Minimum of two criteria No #1 Nutrition Diagnosis Inadequate oral intake Diagnosis Progress(for reassessment Continues documentation) Is patient on ventilator? Yes Is Patient Ambulatory and/or Out of Bed No REE-([facility]-confined to bed) 2022.848 Kcal/Kg value to use for calculation 15 Approximate Energy Requirements Using 1601 kcal/Kg Calculation Used for Recommendations Kcal/kg Additional Notes Protein: 0.8-1.2 g/Kg IBW; 70- 105 g/day. Fluids: 1 ml/Kcal, or as per MD. Nutrition Intervention Nutrition Support: Continue Nepro w/CARBSTEADY @ 37 ml/hr. Flush: 160 ml water Q 4 hr, or as per MD. Kcal 1,598 Protein (gm) 72 Carbohydrates (gm) 143 Fat (gm) 85 Fluid (mL) 646 Fiber (gm) 11 % RDI: 100% Kcal; 100% AA. Goal #1 Provide at least 75% of energy /protein needs through Enteral Feeding during LOS. Goal #2 Maintain body weight within +/ -3% of admission body weight during LOS. Follow-Up By: 11/15/21 Additional Comments Continue monitoring TF tolerance and BM. <ABRAM DIAS - Last Filed: 11/12/21 16:37> Assessment and Plan Assessment and plan: I saw and evaluated the patient. I agree with the findings and the plan of care as documented in the Nurse Practitioner's~note, with the following corrections and additions. Vascular consult placed for IVC filter consideration in the setting of presumed retroperitoneal hematoma Severe anemia noted,Transfusion done. Hospitalist Physical - Constitutional Vitals: Temp Pulse Resp BP Pulse Ox 99.6 F 89 39 H 97/64 96 11/12/21 12:00 11/12/21 14:31 11/12/21 14:31 11/12/21 14:31 11/12/21 14:31 HEART Score - HEART Score Troponin: Troponin T 1.150 ng/mL (0.00-0.029) H* D 10/29/21 22:34 Results - Labs CBC & Chem 7: 11/12/21 03:30 11/12/21 03:30 Labs: Laboratory Last Values WBC 17.7 K/mm3 (4.5-11.0) H 11/12/21 03:30 RBC 2.37 M/mm3 (3.65-5.03) L 11/12/21 03:30 Hgb 6.3 gm/dl (10.1-14.3) L 11/12/21 03:30 Hct 20.0 % (30.3-42.9) L 11/12/21 03:30 MCV 84 fl (79-97) 11/12/21 03:30 MCH 27 pg (28-32) L 11/12/21 03:30 MCHC 32 % (30-34) 11/12/21 03:30 RDW 15.5 % (13.2-15.2) H 11/12/21 03:30 Plt Count 256 K/mm3 (140-440) 11/12/21 03:30 Lymph % (Auto) 6.2 % (13.4-35.0) L 10/30/21 04:30 [place] % (Auto) 5.5 % (0.0-7.3) 10/30/21 04:30 Eos % (Auto) 0.1 % (0.0-4.3) 10/30/21 04:30 Baso % (Auto) 0.1 % (0.0-1.8) 10/30/21 04:30 Lymph # (Auto) 1.0 K/mm3 (1.2-5.4) L 10/30/21 04:30 Dickenson # (Auto) 0.9 K/mm3 (0.0-0.8) H 10/30/21 04:30 Eos # (Auto) 0.0 K/mm3 (0.0-0.4) 10/30/21 04:30 Baso # (Auto) 0.0 K/mm3 (0.0-0.1) 10/30/21 04:30 Add Manual Diff Complete 11/07/21 06:30 Total Counted 100 11/07/21 06:30 Seg Neutrophils % 88.1 % (40.0-70.0) H 10/30/21 04:30 Seg Neuts % (Manual) 77.0 % (40.0-70.0) H 11/07/21 06:30 Band Neutrophils % 1.0 % 11/07/21 06:30 Lymphocytes % (Manual) 11.0 % (13.4-35.0) L 11/07/21 06:30 Reactive Lymphs % (Man) 3.0 % 11/07/21 06:30 Monocytes % (Manual) 2.0 % (0.0-7.3) 11/07/21 06:30 Eosinophils % (Manual) 0 % (0.0-4.3) 11/07/21 06:30 Basophils % (Manual) 0 % (0.0-1.8) 11/07/21 06:30 Metamyelocytes % 1.0 % 11/07/21 06:30 Myelocytes % 5.0 % 11/07/21 06:30 Promyelocytes % 0 % 11/07/21 06:30 Blast Cells % 0 % 11/07/21 06:30 Nucleated RBC % 2.0 % (0.0-0.9) H 11/07/21 06:30 Seg Neutrophils # 14.2 K/mm3 (1.8-7.7) H 10/30/21 04:30 Seg Neutrophils # Man 12.3 K/mm3 (1.8-7.7) H 11/07/21 06:30 Band Neutrophils # 0.2 K/mm3 11/07/21 06:30 Lymphocytes # (Manual) 1.8 K/mm3 (1.2-5.4) 11/07/21 06:30 Abs React Lymphs (Man) 0.5 K/mm3 11/07/21 06:30 Monocytes # (Manual) 0.3 K/mm3 (0.0-0.8) 11/07/21 06:30 Eosinophils # (Manual) 0.0 K/mm3 (0.0-0.4) 11/07/21 06:30 Basophils # (Manual) 0.0 K/mm3 (0.0-0.1) 11/07/21 06:30 Metamyelocytes # 0.2 K/mm3 11/07/21 06:30 Myelocytes # 0.8 K/mm3 11/07/21 06:30 Promyelocytes # 0.0 K/mm3 11/07/21 06:30 Blast Cells # 0.0 K/mm3 11/07/21 06:30 WBC Morphology Not Reportable 11/07/21 06:30 Hypersegmented Neuts Not Reportable 11/07/21 06:30 Hyposegmented Neuts Not Reportable 11/07/21 06:30 Hypogranular Neuts Not Reportable 11/07/21 06:30 Smudge Cells Not Reportable 11/07/21 06:30 Toxic Granulation Not Reportable 11/07/21 06:30 Toxic Vacuolation Not Reportable 11/07/21 06:30 Dohle Bodies Not Reportable 11/07/21 06:30 Pelger-Huet Anomaly Not Reportable 11/07/21 06:30 Manny Rods Not Reportable 11/07/21 06:30 Platelet Estimate Consistent w auto 11/07/21 06:30 Clumped Platelets Not Reportable 11/07/21 06:30 Plt Clumps, EDTA Not Reportable 11/07/21 06:30 Large Platelets 1+ 11/07/21 06:30 Giant Platelets Not Reportable 11/07/21 06:30 Platelet Satelliting Not Reportable 11/07/21 06:30 Plt Morphology Comment Not Reportable 11/07/21 06:30 RBC Morphology Not Reportable 11/07/21 06:30 Dimorphic RBCs Not Reportable 11/07/21 06:30 Polychromasia Not Reportable 11/07/21 06:30 Hypochromasia 1+ 11/07/21 06:30 Poikilocytosis Not Reportable 11/07/21 06:30 Anisocytosis Not Reportable 11/07/21 06:30 Microcytosis Not Reportable 11/07/21 06:30 Macrocytosis Not Reportable 11/07/21 06:30 Spherocytes 1+ 11/07/21 06:30 Pappenheimer Bodies Not Reportable 11/07/21 06:30 Sickle Cells Not Reportable 11/07/21 06:30 Target Cells 1+ 11/07/21 06:30 Tear Drop Cells Not Reportable 11/07/21 06:30 Ovalocytes Not Reportable 11/07/21 06:30 Helmet Cells Not Reportable 11/07/21 06:30 [place] Bodies Not Reportable 11/07/21 06:30 [place] Rings Not Reportable 11/07/21 06:30 [place] Cells Not Reportable 11/07/21 06:30 Bite Cells Not Reportable 11/07/21 06:30 Crenated Cell Not Reportable 11/07/21 06:30 Elliptocytes Not Reportable 11/07/21 06:30 Acanthocytes (Spur) Not Reportable 11/07/21 06:30 Rouleaux Not Reportable 11/07/21 06:30 Hemoglobin C Crystals Not Reportable 11/07/21 06:30 Schistocytes Not Reportable 11/07/21 06:30 Malaria parasites Not Reportable 11/07/21 06:30 Magdy Bodies Not Reportable 11/07/21 06:30 Hem Pathologist Commnt No 11/07/21 06:30 PT 17.2 Sec. (12.2-14.9) H 10/30/21 16:30 INR 1.27 (0.87-1.13) H 10/30/21 16:30 APTT 44.4 Sec. (24.2-36.6) H 10/30/21 16:30 D-Dimer > 00087 ng/mlDDU (0-234) H 10/30/21 Unknown Heparin Anti-Xa Level 0.62 U.I./ml (0.3-0.7) 11/12/21 03:30 ABG pH 7.475 pH Units (7.350-7.450) H 11/11/21 13:53 ABG pCO2 45.0 mm Hg 11/11/21 13:53 ABG pO2 64.1 mm Hg (80.0-90.0) L 11/11/21 13:53 ABG HCO3 32.4 mmol/L (20.0-26.0) H 11/11/21 13:53 ABG O2 Saturation 96.3 % (95.0-99.0) 11/11/21 13:53 ABG O2 Content 10.1 (0.0-44) 11/11/21 13:53 ABG Base Excess 8.0 mmol/L (-2.0-3.0) H 11/11/21 13:53 ABG Hemoglobin 7.6 gm/dl (12.0-16.0) L 11/11/21 13:53 ABG Carboxyhemoglobin 1.8 % (0.0-5.0) 11/11/21 13:53 ABG Methemoglobin 0.5 % (0.0-1.5) 11/11/21 13:53 Oxyhemoglobin 94.0 % (95.0-99.0) L 11/11/21 13:53 FiO2 32 % 11/11/21 13:53 Sodium 145 mmol/L (137-145) 11/12/21 03:30 Potassium 3.9 mmol/L (3.6-5.0) 11/12/21 03:30 Chloride 106.1 mmol/L (98-107) 11/12/21 03:30 Carbon Dioxide 33 mmol/L (22-30) H 11/12/21 03:30 Anion Gap 10 mmol/L 11/12/21 03:30 BUN 38 mg/dL (7-17) H 11/12/21 03:30 Creatinine 1.3 mg/dL (0.6-1.2) H 11/12/21 03:30 Estimated GFR 49 ml/min 11/12/21 03:30 BUN/Creatinine Ratio 29 % 11/12/21 03:30 Glucose 102 mg/dL (65-100) H 11/12/21 03:30 POC Glucose 62 mg/dL (70-105) L 11/12/21 11:53 Hemoglobin A1c 6.7 % (4-6) H 10/31/21 04:30 Lactic Acid 0.70 mmol/L (0.7-2.0) 10/31/21 15:45 Calcium 8.2 mg/dL (8.4-10.2) L 11/12/21 03:30 Phosphorus 4.00 mg/dL (2.5-4.5) 11/12/21 03:30 Magnesium 1.90 mg/dL (1.7-2.3) 11/12/21 03:30 Ferritin 208.4 ng/mL (10.0-200.0) H 10/30/21 Unknown Total Bilirubin < 0.20 mg/dL (0.1-1.2) 11/06/21 02:35 AST 21 units/L (5-40) 11/06/21 02:35 ALT 77 units/L (7-56) H 11/06/21 02:35 Alkaline Phosphatase 84 units/L (35-129) 11/06/21 02:35 Ammonia 31.0 umol/L (25-60) 10/29/21 15:10 Lactate Dehydrogenase 469 units/L (91-180) H 10/30/21 Unknown Troponin T 1.150 ng/mL (0.00-0.029) H* D 10/29/21 22:34 C-Reactive Protein 13.40 mg/dL (0.00-1.30) H 10/30/21 Unknown Total Protein 6.3 g/dL (6.3-8.2) 11/06/21 02:35 Albumin 3.0 g/dL (3.9-5) L 11/06/21 02:35 Albumin/Globulin Ratio 0.9 % 11/06/21 02:35 Triglycerides 68 mg/dL (2-149) 10/29/21 19:40 Cholesterol 98 mg/dL (50-199) 10/29/21 19:40 LDL Cholesterol Direct 43 mg/dL (50-130) L 10/29/21 19:40 HDL Cholesterol 50 mg/dL (40-59) 10/29/21 19:40 Cholesterol/HDL Ratio 1.96 % 10/29/21 19:40 Procalcitonin 61.95 ng/mL (<0.15) 10/30/21 Unknown TSH 3.080 mlU/mL (0.270-4.200) 10/29/21 15:10 Urine Color Straw (Yellow) 10/29/21 18:15 Urine Turbidity Clear (Clear) 10/29/21 18:15 Urine pH 7.0 (5.0-7.0) 10/29/21 18:15 Ur Specific [place] 1.018 (1.003-1.030) 10/29/21 18:15 Urine Protein 100 mg/dl mg/dL (Negative) 10/29/21 18:15 Urine Glucose (UA) 150 mg/dL (Negative) 10/29/21 18:15 Urine Ketones Neg mg/dL (Negative) 10/29/21 18:15 Urine Blood Mod (Negative) 10/29/21 18:15 Urine Nitrite Neg (Negative) 10/29/21 18:15 Urine Bilirubin Neg (Negative) 10/29/21 18:15 Urine Urobilinogen < 2.0 mg/dL (<2.0) 10/29/21 18:15 Ur Leukocyte Esterase Neg (Negative) 10/29/21 18:15 Urine WBC (Auto) 5.0 /HPF (0.0-6.0) 10/29/21 18:15 Urine RBC (Auto) 2.0 /HPF (0.0-6.0) 10/29/21 18:15 U Epithel Cells (Auto) < 1.0 /HPF (0-13.0) 10/29/21 18:15 Urine Mucus Few /HPF 10/29/21 18:15 Urine Eosinophils None seen (None Seen) 11/04/21 Unknown Urine Creatinine 190.9 mg/dL (0.1-20.0) H 11/04/21 Unknown Protein/Creatinin Ratio 0.90 11/04/21 Unknown Urine Sodium 10 mmol/L 11/04/21 Unknown Urine Total Protein 172 mg/dL (5-11.8) H 11/04/21 Unknown Salicylates < 0.3 mg/dL (2.8-20.0) L 10/29/21 15:10 Urine Opiates Screen Negative 10/29/21 18:15 Urine Methadone Screen Negative 10/29/21 18:15 Acetaminophen 5.0 ug/mL (10.0-30.0) L 10/29/21 15:10 Ur Barbiturates Screen Negative 10/29/21 18:15 Ur Phencyclidine Scrn Negative 10/29/21 18:15 Ur Amphetamines Screen Negative 10/29/21 18:15 U Benzodiazepines Scrn Negative 10/29/21 18:15 Urine Cocaine Screen Negative 10/29/21 18:15 U Marijuana (THC) Screen Negative 10/29/21 18:15 Drugs of Abuse Note Disclamer 10/29/21 18:15 Plasma/Serum Alcohol < 0.01 % (0-0.07) 10/29/21 15:10 Coronavirus (PCR) Negative (Negative) 10/30/21 Unknown Blood Type O POSITIVE 11/12/21 04:15 Antibody Screen Negative 11/12/21 04:15 Crossmatch See Detail 11/12/21 04:15 Microbiology: Microbiology 11/10/21 11:12 Tracheal Aspirate Sputum Culture - Final Krishna/IV: Voiding Method Indwelling Catheter Active Medications - Current Medications Current Medications: Generic Name Dose Route Start Last Admin Trade Name Freq PRN Reason Stop Dose Admin Acetaminophen 650 mg 10/29/21 17:04 11/11/21 13:35 Acetaminophen 325 Mg Tab PO 650 mg Q6H PRN Administration Pain, Mild (1-3) Acetaminophen 650 mg 10/29/21 17:04 Acetaminophen 650 Mg Rect Supp VA Q6H PRN Pain MILD(1-3)/Fever >100.5/NIEVES Amiodarone HCl 200 mg 11/08/21 10:00 11/12/21 12:24 Amiodarone 200 Mg Tab PO Not Given QDAY RAMON Lipase/Protease/Amylase 1 each 10/31/21 08:56 Lipase 10,500/Protease 25,000/Amylase 43,750 (Units) Dr Ivory FEEDTUBE PRN PRN For Clogged Feeding Tube Dextrose 0 ml 11/04/21 13:48 11/12/21 05:45 Dextrose 10% *Hypoglycemia IV 50 ml PRN PRN Administration Hypoglycemia Famotidine 10 mg 11/06/21 10:00 11/12/21 12:24 Famotidine 10 Mg Tab PO Not Given BID RAMON Fentanyl 50 mcg 11/04/21 14:32 11/09/21 00:01 Fentanyl 100 Mcg/2 Ml Inj IV 50 mcg Q2H PRN Administration Pain, Moderate (4-6) Furosemide 40 mg 11/12/21 18:00 Furosemide 40 Mg/4 Ml Inj IV 11/16/21 17:59 0600,1800 RAMON Furosemide 40 mg 11/17/21 10:00 Furosemide 40 Mg Tab PO QDAY [facility] Hydralazine HCl 50 mg 11/09/21 14:00 11/12/21 13:02 Hydralazine 25 Mg Tab PO Not Given Q8HR [facility] Hydralazine HCl 10 mg 11/09/21 13:05 Hydralazine 20 Mg/1 Ml Inj IV Q4HR PRN Hypertension Hydrophilic Ointment 1 applic 10/29/21 14:29 11/09/21 08:51 Lip Therapy Vaseline TP 1 applic Q2HR PRN Administration Dry Lips NORepinephrine/NS 8 MG-250 ML 8 mg in 250 mls @ 3.75 mls/hr 10/29/21 15:00 11/04/21 07:00 Norepinephrine/Ns 8 Mg-250 Ml (Double Conc) IV 0 mcg/min TITRATE RAMON 0 mls/hr Titration Protocol 2 MCG/MIN Dexmedetomidine HCl 400 mcg/ 100 mls @ 5.335 mls/hr 11/11/21 21:00 11/12/21 10:58 Sodium Chloride IV 0.6 mcg/kg/hr TITRATE RAMON 16.005 mls/hr Administration Protocol 0.2 MCG/KG/HR Dextrose 1,000 mls @ 42 mls/hr 11/12/21 13:00 11/12/21 13:07 D5w IV 42 mls/hr DIRECT [facility] Administration Insulin Glargine 10 units 11/13/21 22:00 Insulin Glargine 100 Units/Ml SUB-Q QHS [facility] Insulin Human Lispro 0 unit 10/30/21 16:00 11/12/21 12:23 Insulin Lispro 100 Unit/Ml SUB-Q Not Given Q6HR [facility] Protocol Isosorbide Mononitrate 30 mg 11/08/21 10:00 11/12/21 12:24 Isosorbide Mononitrate Er 30 Mg Tab PO Not Given QDAY [facility] Metoprolol Tartrate 50 mg 11/07/21 12:00 11/12/21 12:24 Metoprolol Tartrate 50 Mg Tab FEEDTUBE Not Given Q6H [facility] Multi-Ingred Cream/Lotion/Oil/Oint 1 applic 10/29/21 14:29 11/06/21 09:25 Mineral Oil/Petrolatum, White Ophth Oint 3.5 Gm OU 1 applic Q4HR PRN Administration Dry Eye(s) Senna/Docusate Sodium 1 tab 10/29/21 15:00 11/12/21 12:25 Sennosides/Docusate Sodium 8.6/50 Mg Tab FEEDTUBE Not Given BID RAMON Simple Syrup 15 ml 10/31/21 08:56 Simple Syrup 15 Ml FEEDTUBE PRN PRN Hypoglycemia Simple Syrup 30 ml 10/31/21 08:56 Simple Syrup 15 Ml FEEDTUBE PRN PRN Hypoglycemia Sodium Bicarbonate 325 mg 10/31/21 08:56 Sodium Bicarbonate 325 Mg Tab FEEDTUBE PRN PRN For Clogged Feeding Tube Sodium Chloride 10 ml 10/29/21 22:00 11/11/21 21:07 Sodium Chloride 0.9% 10 Ml Flush Syringe IV 10 ml BID RAMON Administration Sodium Chloride 10 ml 10/29/21 17:04 Sodium Chloride 0.9% 10 Ml Flush Syringe IV PRN PRN LINE FLUSH Spironolactone 25 mg 11/10/21 10:00 11/12/21 12:24 Spironolactone 25 Mg Tab PO Not Given QDAY RAMON Nutrition/Malnutrition Assess - Dietary Evaluation Nutrition/Malnutrition Findings: Nutrition Notes Start: 10/30/21 09:50 Freq: Status: Active Protocol: Document 11/08/21 09:54 MEENU (Rec: 11/08/21 10:20 MEENU [id number]) Nutrition Notes Initial or Follow up Reassessment Current Diagnosis Acute Kidney Injury,Sepsis, Heart Failure,Respiratory Failure Other Pertinent Diagnosis SIERRA/ATN, s/p Cardiac Arrest, DVT, Anemia, Hyperkalemia. Current Diet TF-Nepro w/CARBSTEADY @ 37 ml/ hr (since D 11/06). Labs/Tests 11/08: Na 151, K 3.1, Cl 107.3 , CO2 31, BUN 82, Crea 1.8, Glu 232, Ca 8.1. Pertinent Medications 11/08: Insulin, others nutritionally unremarkable. Height 5 ft 10 in Weight 106.7 kg [place] Body Weight (kg) 68.18 BMI 33.7 Weight change and time frame No body weight change reported in 1 week. Weight Status Obese Subjective/Other Information RD consult for routine F/U on TF tolerance. TF continues as prescribed and well tolerated, according to RN over the phone. Pt continues on Mechanical ventilation. Percent of energy/protein needs met: Prescribed Nepro w/CARBSTEADY @ 37 ml/hr provides for energy /protein needs (1,598 Kcal/72 g) during LOS, 100% Kcal; 100% AA. Burn Absent Trauma Absent GI Symptoms None Food Allergy No Skin Integrity/Comment Clear, warm, dry. Current % PO Other Minimum of two criteria No #1 Nutrition Diagnosis Inadequate oral intake Diagnosis Progress(for reassessment Continues documentation) Is patient on ventilator? Yes Is Patient Ambulatory and/or Out of Bed No REE-([facility]-confined to bed) 2022.848 Kcal/Kg value to use for calculation 15 Approximate Energy Requirements Using 1601 kcal/Kg Calculation Used for Recommendations Kcal/kg Additional Notes Protein: 0.8-1.2 g/Kg IBW; 70- 105 g/day. Fluids: 1 ml/Kcal, or as per MD. Nutrition Intervention Nutrition Support: Continue Nepro w/CARBSTEADY @ 37 ml/hr. Flush: 160 ml water Q 4 hr, or as per MD. Kcal 1,598 Protein (gm) 72 Carbohydrates (gm) 143 Fat (gm) 85 Fluid (mL) 646 Fiber (gm) 11 % RDI: 100% Kcal; 100% AA. Goal #1 Provide at least 75% of energy /protein needs through Enteral Feeding during LOS. Goal #2 Maintain body weight within +/ -3% of admission body weight during LOS. Follow-Up By: 11/15/21 Additional Comments Continue monitoring TF tolerance and BM.
[2021-11-12] MEDS: FAMOTIDINE 10 MG TAB PO SCH ×2 (12:24→22:29)
[2021-11-12] MEDS: SPIRONOLACTONE 25 MG TAB PO SCH (12:24)
[2021-11-12] MEDS: AMIODARONE 200 MG TAB PO SCH (12:24)
[2021-11-12] MEDS: METOPROLOL TARTRATE 50 MG TAB FEEDTUBE SCH ×2 (12:24→17:23)
[2021-11-12] MEDS: SENNOSIDES/DOCUSATE SODIUM 8.6/50 MG TAB FEEDTUBE SCH ×2 (12:25→22:29)
[2021-11-12] MEDS: hydrALAZINE 25 MG TAB PO SCH ×3 (12:25→22:29)
[2021-11-12] MEDS ORDERED: POTASSIUM CHLORIDE 10 MEQ in D5W/0.9% NACL 1,000 ML IV SCH (12:30)
[2021-11-12] MEDS ORDERED: DEXTROSE 5% IN WATER 1,000 ML IV SCH (13:00)
--- NOTE | 2021-11-12 14:42 | Progress Note ---
Assessment and Plan Acute hypoxemic respiratory failure s/p MVS Cardiac arrest with ROSC Acute DVT- on heparin Anemia- possible acute blood loss Right pneumothorax s/p pleural drain placement Shock (septic +/- cardiogenic) Possible aspiration pneumonia SIERRA Altered mental status/acute encephalopathy Elevated serum transaminases, likely ischemic hepatitis Metabolic acidosis Obesity Leukocytosis The patient has right flank ecchymosis and anemia requiring supportive transfusions, get non contrast CT abdomen to r/o retroperitoneal bleeding Hold heparin infusion IR consult for IVC filter placement Supportive transfusions to keep HgB>7g/dl Send FOBT testing Conservative fluid management as tolerated by hemodynamics, renal function Continue to titrate supplemental oxygen to keep SpO2 88-90% CPAP at night, she probably has undiagnosed sleep apnea Continue bronchodilators with pulmonary hygiene per RT Continue accuchecks with glycemic control per SSI (While critically ill target blood glucose of 140-180 mg/dL; avoid hypoglycemia) Continue to avoid nephrotoxins, renally dose all medications Continue to avoid benzodiazepines , reduce the possibility of delirium Continue to maintain sleep-wake cycle, avoid delirium Await APPLICATION SYSTEMS ADMINISTRATOR eval. If she is high aspiration risk, place small bowel feeding tube for enteric nutritional support Discontinue RIJ CVL continue mobility, off loading and frequent turning per facility protocol to prevent pressure ulcers Continue to monitor hemodynamics closely Continue other care per attending / other consultants Discharge planning ongoing concurrently COVID SPECIFIC INTERVENTIONS - COVID-19 PCR negative CONDITION: FIAR PROGNOSIS: GUARDED CODE STATUS: FULL CODE Can transfer to [facility] Subjective Date of service: 11/12/21 Principal diagnosis: AHRF; Cardiac arrest; R. pneumothorax; pneumonia; AMS; DVT's; SIERRA; Obesity Interval history: Patient is seen today for: Acute hypoxemic respiratory failure; Cardiac arrest with ROSC; Right pneumothorax; pneumonia; AMS; bilateral DVT's; SIERRA; Obesity Seen and examined at bedside; 24hour events reviewed; nursing and respiratory care staff consulted; no adverse overnight events reported to me; Extubated yesterday, had some stridor that responded to racemic epinephrine. Anemia <7g/dL which required PRBC overnight. No emesis or overt aspiration. She states she is tired and just wants to rest. Awaiting PT and APPLICATION SYSTEMS ADMINISTRATOR evaluation of swallow function Objective Vital Signs - 12hr 11/12/21 11/12/21 11/12/21 03:00 03:21 03:30 Temperature 98.9 F Pulse Rate 63 63 Pulse Rate [ From Monitor] Respiratory 23 24 Rate Blood Pressure 146/86 156/85 O2 Sat by Pulse 100 100 Oximetry 11/12/21 11/12/21 11/12/21 04:00 04:30 05:00 Temperature Pulse Rate 60 60 62 Pulse Rate [ 63 From Monitor] Respiratory Rate Blood Pressure 143/79 136/75 132/84 O2 Sat by Pulse 100 99 100 Oximetry 11/12/21 11/12/21 11/12/21 05:23 05:30 06:00 Temperature Pulse Rate 61 63 60 Pulse Rate [ From Monitor] Respiratory Rate Blood Pressure 132/84 152/80 153/78 O2 Sat by Pulse 100 100 100 Oximetry 11/12/21 11/12/21 11/12/21 06:15 06:31 06:45 Temperature Pulse Rate 60 61 61 Pulse Rate [ From Monitor] Respiratory Rate Blood Pressure 153/78 166/93 166/93 O2 Sat by Pulse 100 100 100 Oximetry 11/12/21 11/12/21 11/12/21 07:00 07:15 07:30 Temperature Pulse Rate 65 59 L 64 Pulse Rate [ From Monitor] Respiratory Rate Blood Pressure 163/88 163/88 172/89 O2 Sat by Pulse 99 99 99 Oximetry 11/12/21 11/12/21 11/12/21 07:34 07:45 08:00 Temperature 98 F Pulse Rate 61 63 65 Pulse Rate [ From Monitor] Respiratory Rate Blood Pressure 172/89 172/89 163/86 O2 Sat by Pulse 99 99 96 Oximetry 11/12/21 11/12/21 11/12/21 08:15 08:30 08:45 Temperature Pulse Rate 66 67 66 Pulse Rate [ From Monitor] Respiratory 25 H 28 H 25 H Rate Blood Pressure 163/86 160/83 160/83 O2 Sat by Pulse 97 96 99 Oximetry 11/12/21 11/12/21 11/12/21 09:00 09:15 09:30 Temperature Pulse Rate 68 67 70 Pulse Rate [ From Monitor] Respiratory 27 H 24 24 Rate Blood Pressure 170/93 170/93 171/97 O2 Sat by Pulse 98 98 98 Oximetry 11/12/21 11/12/21 11/12/21 09:45 10:01 10:15 Temperature Pulse Rate 71 70 74 Pulse Rate [ From Monitor] Respiratory 22 30 H 28 H Rate Blood Pressure 137/81 137/81 137/81 O2 Sat by Pulse 95 98 97 Oximetry 11/12/21 11/12/21 11/12/21 10:31 10:35 10:45 Temperature 100.5 F H Pulse Rate 80 78 79 Pulse Rate [ From Monitor] Respiratory 22 33 H 33 H Rate Blood Pressure 137/81 143/77 145/73 O2 Sat by Pulse 98 98 95 Oximetry 11/12/21 11/12/21 11/12/21 11:00 11:15 11:30 Temperature Pulse Rate 78 80 84 Pulse Rate [ From Monitor] Respiratory 32 H 32 H 34 H Rate Blood Pressure 127/71 124/72 112/67 O2 Sat by Pulse 98 Oximetry 11/12/21 11/12/21 11/12/21 11:45 12:00 12:15 Temperature 99.6 F Pulse Rate 87 82 90 Pulse Rate [ From Monitor] Respiratory 25 H 36 H 36 H Rate Blood Pressure 126/66 106/58 106/58 O2 Sat by Pulse 97 Oximetry 11/12/21 11/12/21 11/12/21 12:31 12:45 13:00 Temperature Pulse Rate 87 91 H 86 Pulse Rate [ From Monitor] Respiratory 26 H 39 H 40 H Rate Blood Pressure 85/50 87/51 104/75 O2 Sat by Pulse 79 L 97 97 Oximetry 11/12/21 11/12/21 13:15 13:31 Temperature Pulse Rate 82 79 Pulse Rate [ From Monitor] Respiratory 36 H 36 H Rate Blood Pressure 104/75 103/57 O2 Sat by Pulse 98 99 Oximetry Constitutional: no acute distress, alert Eyes: non-icteric ENT: oropharynx moist, oropharyngeal exudate pre (moderate) Neck: supple, no lymphadenopathy, no JVD, other (RIJ CVL) Effort: mildly labored Ascultation: Bilateral: diminished breath sounds, rhonchi Percussion: Bilateral: not dull Cardiovascular: irregular rhythm, other (no R/M, S1,S2) Gastrointestinal: normoactive bowel sounds, soft, non-distended, other (Left flank ecchymosis with induration) Integumentary: normal Extremities: no cyanosis, pulses normal, no ischemia or petechiae, edema Neurologic: non-focal exam (grossly), pupils equal and round, motor strength normal and (weak), unable to assess Psychiatric: mood appropriate, affect normal, other (unable to assess re: AMS) CBC and BMP: 11/12/21 03:30 11/12/21 03:30 ABG, PT/INR, D-dimer: ABG ABG pH 7.475 pH Units (7.350-7.450) H 11/11/21 13:53 ABG pCO2 45.0 mm Hg 11/11/21 13:53 ABG pO2 64.1 mm Hg (80.0-90.0) L 11/11/21 13:53 ABG O2 Saturation 96.3 % (95.0-99.0) 11/11/21 13:53 PT/INR, D-dimer PT 17.2 Sec. (12.2-14.9) H 10/30/21 16:30 INR 1.27 (0.87-1.13) H 10/30/21 16:30 D-Dimer > 42455 ng/mlDDU (0-234) H 10/30/21 Unknown Abnormal lab findings: Abnormal Labs 10/29/21 10/29/21 10/29/21 15:10 15:10 15:10 WBC 27.8 H RBC Hgb Hct MCH 27 L RDW Plt Count Lymph % (Auto) Lymph # (Auto) [place] # (Auto) Seg Neutrophils % Seg Neuts % (Manual) 78.0 H Lymphocytes % (Manual) 10.0 L Nucleated RBC % Seg Neutrophils # Seg Neutrophils # Man 21.7 H Monocytes # (Manual) 1.4 H PT INR APTT D-Dimer Heparin Anti-Xa Level ABG pH ABG pO2 ABG HCO3 ABG O2 Saturation ABG Base Excess ABG Hemoglobin Oxyhemoglobin Sodium Potassium Chloride Carbon Dioxide BUN Creatinine Glucose POC Glucose Hemoglobin A1c Lactic Acid 6.80 H* Calcium Phosphorus Magnesium Ferritin AST ALT Alkaline Phosphatase Lactate Dehydrogenase Troponin T 0.089 H C-Reactive Protein Total Protein Albumin LDL Cholesterol Direct Urine Creatinine Urine Total Protein Salicylates Acetaminophen Crossmatch 10/29/21 10/29/21 10/29/21 15:10 15:10 15:10 WBC RBC Hgb Hct MCH RDW Plt Count Lymph % (Auto) Lymph # (Auto) [place] # (Auto) Seg Neutrophils % Seg Neuts % (Manual) Lymphocytes % (Manual) Nucleated RBC % Seg Neutrophils # Seg Neutrophils # Man Monocytes # (Manual) PT INR APTT D-Dimer Heparin Anti-Xa Level ABG pH ABG pO2 ABG HCO3 ABG O2 Saturation ABG Base Excess ABG Hemoglobin Oxyhemoglobin Sodium 136 L Potassium 2.8 L* Chloride 93.4 L Carbon Dioxide 20 L BUN Creatinine Glucose 330 H POC Glucose Hemoglobin A1c Lactic Acid Calcium Phosphorus Magnesium Ferritin AST 1013 H ALT 1289 H Alkaline Phosphatase 246 H Lactate Dehydrogenase Troponin T C-Reactive Protein Total Protein Albumin LDL Cholesterol Direct Urine Creatinine Urine Total Protein Salicylates < 0.3 L Acetaminophen 5.0 L Crossmatch 10/29/21 10/29/21 10/29/21 15:11 16:01 19:29 WBC RBC Hgb Hct MCH RDW Plt Count Lymph % (Auto) Lymph # (Auto) [place] # (Auto) Seg Neutrophils % Seg Neuts % (Manual) Lymphocytes % (Manual) Nucleated RBC % Seg Neutrophils # Seg Neutrophils # Man Monocytes # (Manual) PT INR APTT D-Dimer Heparin Anti-Xa Level ABG pH 7.307 L ABG pO2 64.1 L ABG HCO3 ABG O2 Saturation 90.8 L ABG Base Excess -2.9 L ABG Hemoglobin Oxyhemoglobin 89.3 L Sodium Potassium Chloride Carbon Dioxide BUN Creatinine Glucose POC Glucose Hemoglobin A1c Lactic Acid 2.60 H* Calcium Phosphorus Magnesium 2.90 H Ferritin AST ALT Alkaline Phosphatase Lactate Dehydrogenase Troponin T C-Reactive Protein Total Protein Albumin LDL Cholesterol Direct Urine Creatinine Urine Total Protein Salicylates Acetaminophen Crossmatch 10/29/21 10/29/21 10/30/21 19:40 22:34 04:30 WBC 16.2 H RBC Hgb Hct MCH 26 L RDW 15.5 H Plt Count Lymph % (Auto) 6.2 L Lymph # (Auto) 1.0 L [place] # (Auto) 0.9 H Seg Neutrophils % 88.1 H Seg Neuts % (Manual) Lymphocytes % (Manual) Nucleated RBC % Seg Neutrophils # 14.2 H Seg Neutrophils # Man Monocytes # (Manual) PT INR APTT D-Dimer Heparin Anti-Xa Level ABG pH ABG pO2 ABG HCO3 ABG O2 Saturation ABG Base Excess ABG Hemoglobin Oxyhemoglobin Sodium Potassium Chloride Carbon Dioxide BUN Creatinine Glucose POC Glucose Hemoglobin A1c Lactic Acid Calcium Phosphorus Magnesium Ferritin AST ALT Alkaline Phosphatase Lactate Dehydrogenase Troponin T 1.950 H* D 1.150 H* D C-Reactive Protein Total Protein Albumin LDL Cholesterol Direct 43 L Urine Creatinine Urine Total Protein Salicylates Acetaminophen Crossmatch 10/30/21 10/30/21 10/30/21 04:30 04:35 05:45 WBC RBC Hgb Hct MCH RDW Plt Count Lymph % (Auto) Lymph # (Auto) [place] # (Auto) Seg Neutrophils % Seg Neuts % (Manual) Lymphocytes % (Manual) Nucleated RBC % Seg Neutrophils # Seg Neutrophils # Man Monocytes # (Manual) PT INR APTT D-Dimer Heparin Anti-Xa Level ABG pH ABG pO2 69.5 L ABG HCO3 ABG O2 Saturation ABG Base Excess -2.7 L ABG Hemoglobin Oxyhemoglobin 94.7 L Sodium Potassium Chloride Carbon Dioxide 21 L BUN Creatinine Glucose 159 H POC Glucose 151 H Hemoglobin A1c Lactic Acid Calcium 7.9 L D Phosphorus Magnesium Ferritin AST 461 H ALT 686 H Alkaline Phosphatase 130 H Lactate Dehydrogenase Troponin T C-Reactive Protein Total Protein 5.6 L D Albumin 3.2 L LDL Cholesterol Direct Urine Creatinine Urine Total Protein Salicylates Acetaminophen Crossmatch 10/30/21 10/30/21 10/30/21 11:24 15:59 16:30 WBC RBC Hgb Hct MCH RDW Plt Count Lymph % (Auto) Lymph # (Auto) [place] # (Auto) Seg Neutrophils % Seg Neuts % (Manual) Lymphocytes % (Manual) Nucleated RBC % Seg Neutrophils # Seg Neutrophils # Man Monocytes # (Manual) PT 17.2 H INR 1.27 H APTT 44.4 H D-Dimer Heparin Anti-Xa Level ABG pH ABG pO2 ABG HCO3 ABG O2 Saturation ABG Base Excess ABG Hemoglobin Oxyhemoglobin Sodium Potassium Chloride Carbon Dioxide BUN Creatinine Glucose POC Glucose 153 H 109 H Hemoglobin A1c Lactic Acid Calcium Phosphorus Magnesium Ferritin AST ALT Alkaline Phosphatase Lactate Dehydrogenase Troponin T C-Reactive Protein Total Protein Albumin LDL Cholesterol Direct Urine Creatinine Urine Total Protein Salicylates Acetaminophen Crossmatch 10/30/21 10/30/21 10/30/21 23:00 Unknown Unknown WBC RBC Hgb Hct MCH RDW Plt Count Lymph % (Auto) Lymph # (Auto) [place] # (Auto) Seg Neutrophils % Seg Neuts % (Manual) Lymphocytes % (Manual) Nucleated RBC % Seg Neutrophils # Seg Neutrophils # Man Monocytes # (Manual) PT INR APTT D-Dimer > 50497 H Heparin Anti-Xa Level 0.82 H ABG pH ABG pO2 ABG HCO3 ABG O2 Saturation ABG Base Excess ABG Hemoglobin Oxyhemoglobin Sodium Potassium Chloride Carbon Dioxide BUN Creatinine Glucose POC Glucose Hemoglobin A1c Lactic Acid Calcium Phosphorus Magnesium Ferritin 208.4 H AST ALT Alkaline Phosphatase Lactate Dehydrogenase Troponin T C-Reactive Protein Total Protein Albumin LDL Cholesterol Direct Urine Creatinine Urine Total Protein Salicylates Acetaminophen Crossmatch 10/30/21 10/31/21 10/31/21 Unknown 04:30 04:30 WBC 14.4 H RBC Hgb Hct MCH 26 L RDW Plt Count Lymph % (Auto) Lymph # (Auto) [place] # (Auto) Seg Neutrophils % Seg Neuts % (Manual) Lymphocytes % (Manual) Nucleated RBC % Seg Neutrophils # Seg Neutrophils # Man Monocytes # (Manual) PT INR APTT D-Dimer Heparin Anti-Xa Level ABG pH ABG pO2 ABG HCO3 ABG O2 Saturation ABG Base Excess ABG Hemoglobin Oxyhemoglobin Sodium Potassium 3.5 L Chloride 107.5 H Carbon Dioxide 20 L BUN 28 H Creatinine 1.7 H Glucose 113 H POC Glucose Hemoglobin A1c Lactic Acid Calcium 7.9 L Phosphorus Magnesium Ferritin AST ALT Alkaline Phosphatase Lactate Dehydrogenase 469 H Troponin T C-Reactive Protein 13.40 H Total Protein Albumin LDL Cholesterol Direct Urine Creatinine Urine Total Protein Salicylates Acetaminophen Crossmatch 10/31/21 10/31/21 10/31/21 04:30 05:11 15:30 WBC RBC Hgb Hct MCH RDW Plt Count Lymph % (Auto) Lymph # (Auto) [place] # (Auto) Seg Neutrophils % Seg Neuts % (Manual) Lymphocytes % (Manual) Nucleated RBC % Seg Neutrophils # Seg Neutrophils # Man Monocytes # (Manual) PT INR APTT D-Dimer Heparin Anti-Xa Level ABG pH 7.222 L ABG pO2 61.5 L ABG HCO3 ABG O2 Saturation 86.2 L ABG Base Excess -6.3 L ABG Hemoglobin 11.2 L Oxyhemoglobin 84.5 L Sodium Potassium Chloride Carbon Dioxide BUN Creatinine Glucose POC Glucose 106 H Hemoglobin A1c 6.7 H Lactic Acid Calcium Phosphorus Magnesium Ferritin AST ALT Alkaline Phosphatase Lactate Dehydrogenase Troponin T C-Reactive Protein Total Protein Albumin LDL Cholesterol Direct Urine Creatinine Urine Total Protein Salicylates Acetaminophen Crossmatch 10/31/21 10/31/21 10/31/21 16:07 16:35 17:45 WBC RBC Hgb Hct MCH RDW Plt Count Lymph % (Auto) Lymph # (Auto) [place] # (Auto) Seg Neutrophils % Seg Neuts % (Manual) Lymphocytes % (Manual) Nucleated RBC % Seg Neutrophils # Seg Neutrophils # Man Monocytes # (Manual) PT INR APTT D-Dimer Heparin Anti-Xa Level ABG pH 7.267 L ABG pO2 58.3 L ABG HCO3 ABG O2 Saturation 88.3 L ABG Base Excess -5.9 L ABG Hemoglobin 10.1 L Oxyhemoglobin 86.5 L Sodium Potassium Chloride Carbon Dioxide BUN Creatinine Glucose POC Glucose 115 H Hemoglobin A1c Lactic Acid Calcium Phosphorus Magnesium Ferritin AST ALT Alkaline Phosphatase Lactate Dehydrogenase Troponin T C-Reactive Protein Total Protein Albumin LDL Cholesterol Direct Urine Creatinine 383.6 H Urine Total Protein Salicylates Acetaminophen Crossmatch 11/01/21 11/01/21 11/01/21 00:06 05:08 06:00 WBC 12.6 H RBC 3.43 L Hgb 8.9 L Hct 28.7 L MCH 26 L RDW 15.7 H Plt Count 130 L Lymph % (Auto) Lymph # (Auto) [place] # (Auto) Seg Neutrophils % Seg Neuts % (Manual) Lymphocytes % (Manual) Nucleated RBC % Seg Neutrophils # Seg Neutrophils # Man Monocytes # (Manual) PT INR APTT D-Dimer Heparin Anti-Xa Level ABG pH ABG pO2 ABG HCO3 ABG O2 Saturation ABG Base Excess ABG Hemoglobin Oxyhemoglobin Sodium Potassium Chloride Carbon Dioxide BUN Creatinine Glucose POC Glucose 114 H 120 H Hemoglobin A1c Lactic Acid Calcium Phosphorus Magnesium Ferritin AST ALT Alkaline Phosphatase Lactate Dehydrogenase Troponin T C-Reactive Protein Total Protein Albumin LDL Cholesterol Direct Urine Creatinine Urine Total Protein Salicylates Acetaminophen Crossmatch 11/01/21 11/01/21 11/01/21 06:00 11:43 14:00 WBC RBC Hgb Hct MCH RDW Plt Count Lymph % (Auto) Lymph # (Auto) [place] # (Auto) Seg Neutrophils % Seg Neuts % (Manual) Lymphocytes % (Manual) Nucleated RBC % Seg Neutrophils # Seg Neutrophils # Man Monocytes # (Manual) PT INR APTT D-Dimer Heparin Anti-Xa Level ABG pH 7.349 L ABG pO2 75.6 L ABG HCO3 ABG O2 Saturation ABG Base Excess -3.9 L ABG Hemoglobin 9.8 L Oxyhemoglobin 93.5 L Sodium Potassium Chloride 114.1 H Carbon Dioxide 20 L BUN 33 H Creatinine Glucose 131 H POC Glucose 151 H Hemoglobin A1c Lactic Acid Calcium 7.7 L Phosphorus Magnesium Ferritin AST 79 H ALT 259 H Alkaline Phosphatase Lactate Dehydrogenase Troponin T C-Reactive Protein Total Protein 5.5 L Albumin 2.7 L LDL Cholesterol Direct Urine Creatinine Urine Total Protein Salicylates Acetaminophen Crossmatch 11/01/21 11/01/21 11/02/21 16:45 22:55 05:12 WBC RBC Hgb Hct MCH RDW Plt Count Lymph % (Auto) Lymph # (Auto) [place] # (Auto) Seg Neutrophils % Seg Neuts % (Manual) Lymphocytes % (Manual) Nucleated RBC % Seg Neutrophils # Seg Neutrophils # Man Monocytes # (Manual) PT INR APTT D-Dimer Heparin Anti-Xa Level ABG pH ABG pO2 ABG HCO3 ABG O2 Saturation ABG Base Excess ABG Hemoglobin Oxyhemoglobin Sodium Potassium Chloride Carbon Dioxide BUN Creatinine Glucose POC Glucose 119 H 129 H 140 H Hemoglobin A1c Lactic Acid Calcium Phosphorus Magnesium Ferritin AST ALT Alkaline Phosphatase Lactate Dehydrogenase Troponin T C-Reactive Protein Total Protein Albumin LDL Cholesterol Direct Urine Creatinine Urine Total Protein Salicylates Acetaminophen Crossmatch 11/02/21 11/02/21 11/02/21 05:35 05:35 09:35 WBC 13.5 H RBC 3.60 L Hgb 9.7 L Hct MCH 27 L RDW 15.7 H Plt Count Lymph % (Auto) Lymph # (Auto) [place] # (Auto) Seg Neutrophils % Seg Neuts % (Manual) Lymphocytes % (Manual) Nucleated RBC % Seg Neutrophils # Seg Neutrophils # Man Monocytes # (Manual) PT INR APTT D-Dimer Heparin Anti-Xa Level ABG pH 7.208 L ABG pO2 75.9 L ABG HCO3 ABG O2 Saturation 93.6 L ABG Base Excess -4.3 L ABG Hemoglobin 9.1 L Oxyhemoglobin 91.6 L Sodium Potassium 5.2 H D Chloride 112.6 H Carbon Dioxide BUN 32 H Creatinine Glucose 152 H POC Glucose Hemoglobin A1c Lactic Acid Calcium 8.2 L Phosphorus Magnesium 2.70 H Ferritin AST ALT Alkaline Phosphatase Lactate Dehydrogenase Troponin T C-Reactive Protein Total Protein Albumin LDL Cholesterol Direct Urine Creatinine Urine Total Protein Salicylates Acetaminophen Crossmatch 11/02/21 11/02/21 11/02/21 11:44 17:13 23:43 WBC RBC Hgb Hct MCH RDW Plt Count Lymph % (Auto) Lymph # (Auto) [place] # (Auto) Seg Neutrophils % Seg Neuts % (Manual) Lymphocytes % (Manual) Nucleated RBC % Seg Neutrophils # Seg Neutrophils # Man Monocytes # (Manual) PT INR APTT D-Dimer Heparin Anti-Xa Level ABG pH ABG pO2 ABG HCO3 ABG O2 Saturation ABG Base Excess ABG Hemoglobin Oxyhemoglobin Sodium Potassium Chloride Carbon Dioxide BUN Creatinine Glucose POC Glucose 173 H 148 H 137 H Hemoglobin A1c Lactic Acid Calcium Phosphorus Magnesium Ferritin AST ALT Alkaline Phosphatase Lactate Dehydrogenase Troponin T C-Reactive Protein Total Protein Albumin LDL Cholesterol Direct Urine Creatinine Urine Total Protein Salicylates Acetaminophen Crossmatch 11/03/21 11/03/21 11/03/21 04:59 06:00 06:00 WBC RBC 3.43 L Hgb 9.1 L Hct 29.0 L MCH 26 L RDW 16.4 H Plt Count Lymph % (Auto) Lymph # (Auto) [place] # (Auto) Seg Neutrophils % Seg Neuts % (Manual) Lymphocytes % (Manual) Nucleated RBC % Seg Neutrophils # Seg Neutrophils # Man Monocytes # (Manual) PT INR APTT D-Dimer Heparin Anti-Xa Level 0.17 L ABG pH ABG pO2 ABG HCO3 ABG O2 Saturation ABG Base Excess ABG Hemoglobin Oxyhemoglobin Sodium Potassium Chloride Carbon Dioxide BUN Creatinine Glucose POC Glucose 167 H Hemoglobin A1c Lactic Acid Calcium Phosphorus Magnesium Ferritin AST ALT Alkaline Phosphatase Lactate Dehydrogenase Troponin T C-Reactive Protein Total Protein Albumin LDL Cholesterol Direct Urine Creatinine Urine Total Protein Salicylates Acetaminophen Crossmatch 11/03/21 11/03/21 11/03/21 06:00 09:20 11:58 WBC RBC Hgb Hct MCH RDW Plt Count Lymph % (Auto) Lymph # (Auto) [place] # (Auto) Seg Neutrophils % Seg Neuts % (Manual) Lymphocytes % (Manual) Nucleated RBC % Seg Neutrophils # Seg Neutrophils # Man Monocytes # (Manual) PT INR APTT D-Dimer Heparin Anti-Xa Level ABG pH 7.274 L ABG pO2 75.6 L ABG HCO3 ABG O2 Saturation 94.9 L ABG Base Excess -2.5 L ABG Hemoglobin 9.3 L Oxyhemoglobin 92.9 L Sodium 149 H Potassium Chloride 117.5 H Carbon Dioxide BUN 32 H Creatinine Glucose 173 H POC Glucose 192 H Hemoglobin A1c Lactic Acid Calcium 8.1 L Phosphorus Magnesium Ferritin AST ALT Alkaline Phosphatase Lactate Dehydrogenase Troponin T C-Reactive Protein Total Protein Albumin LDL Cholesterol Direct Urine Creatinine Urine Total Protein Salicylates Acetaminophen Crossmatch 11/03/21 11/03/21 11/04/21 18:22 Unknown 00:09 WBC RBC Hgb Hct MCH RDW Plt Count Lymph % (Auto) Lymph # (Auto) [place] # (Auto) Seg Neutrophils % Seg Neuts % (Manual) Lymphocytes % (Manual) Nucleated RBC % Seg Neutrophils # Seg Neutrophils # Man Monocytes # (Manual) PT INR APTT D-Dimer Heparin Anti-Xa Level 0.29 L ABG pH ABG pO2 ABG HCO3 ABG O2 Saturation ABG Base Excess ABG Hemoglobin Oxyhemoglobin Sodium Potassium Chloride Carbon Dioxide BUN Creatinine Glucose POC Glucose 178 H 221 H Hemoglobin A1c Lactic Acid Calcium Phosphorus Magnesium Ferritin AST ALT Alkaline Phosphatase Lactate Dehydrogenase Troponin T C-Reactive Protein Total Protein Albumin LDL Cholesterol Direct Urine Creatinine Urine Total Protein Salicylates Acetaminophen Crossmatch 11/04/21 11/04/21 11/04/21 05:09 09:40 09:40 WBC 16.8 H RBC Hgb Hct MCH 27 L RDW 16.5 H Plt Count Lymph % (Auto) Lymph # (Auto) [place] # (Auto) Seg Neutrophils % Seg Neuts % (Manual) Lymphocytes % (Manual) Nucleated RBC % Seg Neutrophils # Seg Neutrophils # Man Monocytes # (Manual) PT INR APTT D-Dimer Heparin Anti-Xa Level ABG pH ABG pO2 ABG HCO3 ABG O2 Saturation ABG Base Excess ABG Hemoglobin Oxyhemoglobin Sodium Potassium 5.9 H Chloride 108.5 H Carbon Dioxide BUN 54 H Creatinine 1.8 H Glucose 198 H POC Glucose 182 H Hemoglobin A1c Lactic Acid Calcium Phosphorus Magnesium 3.00 H Ferritin AST ALT Alkaline Phosphatase Lactate Dehydrogenase Troponin T C-Reactive Protein Total Protein Albumin LDL Cholesterol Direct Urine Creatinine Urine Total Protein Salicylates Acetaminophen Crossmatch 11/04/21 11/04/21 11/04/21 12:13 13:34 14:05 WBC RBC Hgb Hct MCH RDW Plt Count Lymph % (Auto) Lymph # (Auto) [place] # (Auto) Seg Neutrophils % Seg Neuts % (Manual) Lymphocytes % (Manual) Nucleated RBC % Seg Neutrophils # Seg Neutrophils # Man Monocytes # (Manual) PT INR APTT D-Dimer Heparin Anti-Xa Level ABG pH 7.223 L ABG pO2 71.3 L ABG HCO3 ABG O2 Saturation 92.8 L ABG Base Excess ABG Hemoglobin 8.2 L Oxyhemoglobin 91.0 L Sodium Potassium Chloride Carbon Dioxide BUN Creatinine Glucose POC Glucose 184 H Hemoglobin A1c Lactic Acid Calcium Phosphorus Magnesium Ferritin AST ALT Alkaline Phosphatase Lactate Dehydrogenase Troponin T C-Reactive Protein Total Protein Albumin LDL Cholesterol Direct Urine Creatinine 184.6 H Urine Total Protein Salicylates Acetaminophen Crossmatch 11/04/21 11/04/21 11/05/21 18:02 Unknown 00:07 WBC RBC Hgb Hct MCH RDW Plt Count Lymph % (Auto) Lymph # (Auto) [place] # (Auto) Seg Neutrophils % Seg Neuts % (Manual) Lymphocytes % (Manual) Nucleated RBC % Seg Neutrophils # Seg Neutrophils # Man Monocytes # (Manual) PT INR APTT D-Dimer Heparin Anti-Xa Level ABG pH ABG pO2 ABG HCO3 ABG O2 Saturation ABG Base Excess ABG Hemoglobin Oxyhemoglobin Sodium Potassium Chloride Carbon Dioxide BUN Creatinine Glucose POC Glucose 262 H 259 H Hemoglobin A1c Lactic Acid Calcium Phosphorus Magnesium Ferritin AST ALT Alkaline Phosphatase Lactate Dehydrogenase Troponin T C-Reactive Protein Total Protein Albumin LDL Cholesterol Direct Urine Creatinine 190.9 H Urine Total Protein 172 H Salicylates Acetaminophen Crossmatch 11/05/21 11/05/21 11/05/21 04:20 04:20 05:30 WBC 17.9 H RBC 3.64 L Hgb 9.7 L Hct MCH 27 L RDW 16.4 H Plt Count Lymph % (Auto) Lymph # (Auto) [place] # (Auto) Seg Neutrophils % Seg Neuts % (Manual) Lymphocytes % (Manual) Nucleated RBC % Seg Neutrophils # Seg Neutrophils # Man Monocytes # (Manual) PT INR APTT D-Dimer Heparin Anti-Xa Level ABG pH ABG pO2 ABG HCO3 ABG O2 Saturation ABG Base Excess ABG Hemoglobin Oxyhemoglobin Sodium Potassium 5.6 H Chloride 108.4 H Carbon Dioxide BUN 71 H Creatinine 1.9 H Glucose 270 H POC Glucose 283 H Hemoglobin A1c Lactic Acid Calcium Phosphorus Magnesium Ferritin AST ALT Alkaline Phosphatase Lactate Dehydrogenase Troponin T C-Reactive Protein Total Protein Albumin LDL Cholesterol Direct Urine Creatinine Urine Total Protein Salicylates Acetaminophen Crossmatch 11/05/21 11/05/21 11/05/21 10:05 12:10 15:29 WBC RBC Hgb Hct MCH RDW Plt Count Lymph % (Auto) Lymph # (Auto) [place] # (Auto) Seg Neutrophils % Seg Neuts % (Manual) Lymphocytes % (Manual) Nucleated RBC % Seg Neutrophils # Seg Neutrophils # Man Monocytes # (Manual) PT INR APTT D-Dimer Heparin Anti-Xa Level ABG pH 7.248 L ABG pO2 73.7 L ABG HCO3 26.2 H ABG O2 Saturation 93.1 L ABG Base Excess ABG Hemoglobin 8.9 L Oxyhemoglobin 91.4 L Sodium Potassium Chloride Carbon Dioxide BUN Creatinine Glucose POC Glucose 225 H 199 H Hemoglobin A1c Lactic Acid Calcium Phosphorus Magnesium Ferritin AST ALT Alkaline Phosphatase Lactate Dehydrogenase Troponin T C-Reactive Protein Total Protein Albumin LDL Cholesterol Direct Urine Creatinine Urine Total Protein Salicylates Acetaminophen Crossmatch 11/05/21 11/05/21 11/05/21 15:51 17:32 17:40 WBC RBC Hgb Hct MCH RDW Plt Count Lymph % (Auto) Lymph # (Auto) [place] # (Auto) Seg Neutrophils % Seg Neuts % (Manual) Lymphocytes % (Manual) Nucleated RBC % Seg Neutrophils # Seg Neutrophils # Man Monocytes # (Manual) PT INR APTT D-Dimer Heparin Anti-Xa Level ABG pH ABG pO2 ABG HCO3 ABG O2 Saturation ABG Base Excess ABG Hemoglobin Oxyhemoglobin Sodium Potassium 5.2 H Chloride 107.8 H Carbon Dioxide BUN 79 H Creatinine 1.9 H Glucose 204 H POC Glucose 278 H 197 H Hemoglobin A1c Lactic Acid Calcium Phosphorus Magnesium Ferritin AST ALT Alkaline Phosphatase Lactate Dehydrogenase Troponin T C-Reactive Protein Total Protein Albumin LDL Cholesterol Direct Urine Creatinine Urine Total Protein Salicylates Acetaminophen Crossmatch 11/05/21 11/05/21 11/05/21 21:25 22:22 23:43 WBC RBC Hgb Hct MCH RDW Plt Count Lymph % (Auto) Lymph # (Auto) [place] # (Auto) Seg Neutrophils % Seg Neuts % (Manual) Lymphocytes % (Manual) Nucleated RBC % Seg Neutrophils # Seg Neutrophils # Man Monocytes # (Manual) PT INR APTT D-Dimer Heparin Anti-Xa Level ABG pH ABG pO2 ABG HCO3 ABG O2 Saturation ABG Base Excess ABG Hemoglobin Oxyhemoglobin Sodium Potassium 5.3 H Chloride 109.2 H Carbon Dioxide BUN 81 H Creatinine 2.0 H Glucose 195 H POC Glucose 180 H 203 H Hemoglobin A1c Lactic Acid Calcium Phosphorus Magnesium Ferritin AST ALT Alkaline Phosphatase Lactate Dehydrogenase Troponin T C-Reactive Protein Total Protein Albumin LDL Cholesterol Direct Urine Creatinine Urine Total Protein Salicylates Acetaminophen Crossmatch 11/05/21 11/06/21 11/06/21 Unknown 02:35 05:09 WBC RBC Hgb Hct MCH RDW Plt Count Lymph % (Auto) Lymph # (Auto) [place] # (Auto) Seg Neutrophils % Seg Neuts % (Manual) Lymphocytes % (Manual) Nucleated RBC % Seg Neutrophils # Seg Neutrophils # Man Monocytes # (Manual) PT INR APTT D-Dimer Heparin Anti-Xa Level ABG pH ABG pO2 ABG HCO3 ABG O2 Saturation ABG Base Excess ABG Hemoglobin Oxyhemoglobin Sodium 146 H Potassium 6.0 H Chloride 108.1 H 107.1 H Carbon Dioxide 21 L BUN 80 H 84 H Creatinine 2.0 H 2.0 H Glucose 238 H 235 H POC Glucose 215 H Hemoglobin A1c Lactic Acid Calcium Phosphorus Magnesium 2.80 H Ferritin AST ALT 77 H Alkaline Phosphatase Lactate Dehydrogenase Troponin T C-Reactive Protein Total Protein Albumin 3.0 L LDL Cholesterol Direct Urine Creatinine Urine Total Protein Salicylates Acetaminophen Crossmatch 11/06/21 11/06/21 11/06/21 05:40 08:07 08:07 WBC RBC Hgb Hct MCH RDW Plt Count Lymph % (Auto) Lymph # (Auto) [place] # (Auto) Seg Neutrophils % Seg Neuts % (Manual) Lymphocytes % (Manual) Nucleated RBC % Seg Neutrophils # Seg Neutrophils # Man Monocytes # (Manual) PT INR APTT D-Dimer Heparin Anti-Xa Level 1.24 H ABG pH 7.311 L ABG pO2 72.8 L ABG HCO3 29.7 H ABG O2 Saturation 94.1 L ABG Base Excess ABG Hemoglobin 11.4 L Oxyhemoglobin 92.3 L Sodium Potassium 5.2 H Chloride Carbon Dioxide BUN 85 H Creatinine 2.3 H Glucose 236 H POC Glucose Hemoglobin A1c Lactic Acid Calcium Phosphorus Magnesium Ferritin AST ALT Alkaline Phosphatase Lactate Dehydrogenase Troponin T C-Reactive Protein Total Protein Albumin LDL Cholesterol Direct Urine Creatinine Urine Total Protein Salicylates Acetaminophen Crossmatch 11/06/21 11/06/21 11/06/21 12:14 12:57 14:28 WBC RBC Hgb Hct MCH RDW Plt Count Lymph % (Auto) Lymph # (Auto) [place] # (Auto) Seg Neutrophils % Seg Neuts % (Manual) Lymphocytes % (Manual) Nucleated RBC % Seg Neutrophils # Seg Neutrophils # Man Monocytes # (Manual) PT INR APTT D-Dimer Heparin Anti-Xa Level ABG pH 7.282 L ABG pO2 72.6 L ABG HCO3 30.8 H ABG O2 Saturation 93.7 L ABG Base Excess 3.2 H ABG Hemoglobin 8.6 L Oxyhemoglobin 91.8 L Sodium Potassium Chloride Carbon Dioxide BUN 91 H Creatinine 2.6 H Glucose 259 H POC Glucose 225 H Hemoglobin A1c Lactic Acid Calcium Phosphorus Magnesium Ferritin AST ALT Alkaline Phosphatase Lactate Dehydrogenase Troponin T C-Reactive Protein Total Protein Albumin LDL Cholesterol Direct Urine Creatinine Urine Total Protein Salicylates Acetaminophen Crossmatch 11/06/21 11/06/21 11/06/21 17:28 19:20 21:30 WBC RBC Hgb Hct MCH RDW Plt Count Lymph % (Auto) Lymph # (Auto) [place] # (Auto) Seg Neutrophils % Seg Neuts % (Manual) Lymphocytes % (Manual) Nucleated RBC % Seg Neutrophils # Seg Neutrophils # Man Monocytes # (Manual) PT INR APTT D-Dimer Heparin Anti-Xa Level 0.73 H ABG pH ABG pO2 ABG HCO3 ABG O2 Saturation ABG Base Excess ABG Hemoglobin Oxyhemoglobin Sodium Potassium Chloride Carbon Dioxide BUN 95 H Creatinine 2.9 H Glucose 233 H POC Glucose 206 H Hemoglobin A1c Lactic Acid Calcium Phosphorus Magnesium Ferritin AST ALT Alkaline Phosphatase Lactate Dehydrogenase Troponin T C-Reactive Protein Total Protein Albumin LDL Cholesterol Direct Urine Creatinine Urine Total Protein Salicylates Acetaminophen Crossmatch 11/06/21 11/07/21 11/07/21 22:56 05:06 06:30 WBC RBC Hgb Hct MCH RDW Plt Count Lymph % (Auto) Lymph # (Auto) [place] # (Auto) Seg Neutrophils % Seg Neuts % (Manual) Lymphocytes % (Manual) Nucleated RBC % Seg Neutrophils # Seg Neutrophils # Man Monocytes # (Manual) PT INR APTT D-Dimer Heparin Anti-Xa Level ABG pH ABG pO2 ABG HCO3 ABG O2 Saturation ABG Base Excess ABG Hemoglobin Oxyhemoglobin Sodium 146 H Potassium Chloride Carbon Dioxide BUN 98 H Creatinine 2.8 H Glucose 202 H POC Glucose 215 H 172 H Hemoglobin A1c Lactic Acid Calcium Phosphorus 4.90 H D Magnesium 2.90 H Ferritin AST ALT Alkaline Phosphatase Lactate Dehydrogenase Troponin T C-Reactive Protein Total Protein Albumin LDL Cholesterol Direct Urine Creatinine Urine Total Protein Salicylates Acetaminophen Crossmatch 11/07/21 11/07/21 11/07/21 06:30 11:26 12:15 WBC 16.0 H RBC 3.06 L Hgb 8.2 L Hct 26.1 L MCH 27 L RDW 16.2 H Plt Count Lymph % (Auto) Lymph # (Auto) [place] # (Auto) Seg Neutrophils % Seg Neuts % (Manual) 77.0 H Lymphocytes % (Manual) 11.0 L Nucleated RBC % 2.0 H Seg Neutrophils # Seg Neutrophils # Man 12.3 H Monocytes # (Manual) PT INR APTT D-Dimer Heparin Anti-Xa Level ABG pH 7.298 L ABG pO2 73.0 L ABG HCO3 33.3 H ABG O2 Saturation 94.4 L ABG Base Excess 5.8 H ABG Hemoglobin 8.2 L Oxyhemoglobin 92.7 L Sodium Potassium Chloride Carbon Dioxide BUN Creatinine Glucose POC Glucose 179 H Hemoglobin A1c Lactic Acid Calcium Phosphorus Magnesium Ferritin AST ALT Alkaline Phosphatase Lactate Dehydrogenase Troponin T C-Reactive Protein Total Protein Albumin LDL Cholesterol Direct Urine Creatinine Urine Total Protein Salicylates Acetaminophen Crossmatch 11/07/21 11/07/21 11/07/21 17:57 22:16 23:49 WBC RBC Hgb Hct MCH RDW Plt Count Lymph % (Auto) Lymph # (Auto) [place] # (Auto) Seg Neutrophils % Seg Neuts % (Manual) Lymphocytes % (Manual) Nucleated RBC % Seg Neutrophils # Seg Neutrophils # Man Monocytes # (Manual) PT INR APTT D-Dimer Heparin Anti-Xa Level ABG pH ABG pO2 ABG HCO3 ABG O2 Saturation ABG Base Excess ABG Hemoglobin Oxyhemoglobin Sodium Potassium Chloride Carbon Dioxide BUN Creatinine Glucose POC Glucose 166 H 223 H 190 H Hemoglobin A1c Lactic Acid Calcium Phosphorus Magnesium Ferritin AST ALT Alkaline Phosphatase Lactate Dehydrogenase Troponin T C-Reactive Protein Total Protein Albumin LDL Cholesterol Direct Urine Creatinine Urine Total Protein Salicylates Acetaminophen Crossmatch 11/08/21 11/08/21 11/08/21 04:20 04:20 06:16 WBC 22.1 H RBC 3.01 L Hgb 8.1 L Hct 25.6 L MCH 27 L RDW 15.4 H Plt Count Lymph % (Auto) Lymph # (Auto) [place] # (Auto) Seg Neutrophils % Seg Neuts % (Manual) Lymphocytes % (Manual) Nucleated RBC % Seg Neutrophils # Seg Neutrophils # Man Monocytes # (Manual) PT INR APTT D-Dimer Heparin Anti-Xa Level ABG pH ABG pO2 ABG HCO3 ABG O2 Saturation ABG Base Excess ABG Hemoglobin Oxyhemoglobin Sodium 151 H Potassium 3.1 L D Chloride 107.3 H Carbon Dioxide 31 H BUN 82 H Creatinine 1.8 H Glucose 232 H POC Glucose 198 H Hemoglobin A1c Lactic Acid Calcium 8.1 L Phosphorus Magnesium Ferritin AST ALT Alkaline Phosphatase Lactate Dehydrogenase Troponin T C-Reactive Protein Total Protein Albumin LDL Cholesterol Direct Urine Creatinine Urine Total Protein Salicylates Acetaminophen Crossmatch 11/08/21 11/08/21 11/08/21 11:38 12:00 18:29 WBC RBC Hgb Hct MCH RDW Plt Count Lymph % (Auto) Lymph # (Auto) [place] # (Auto) Seg Neutrophils % Seg Neuts % (Manual) Lymphocytes % (Manual) Nucleated RBC % Seg Neutrophils # Seg Neutrophils # Man Monocytes # (Manual) PT INR APTT D-Dimer Heparin Anti-Xa Level ABG pH ABG pO2 ABG HCO3 ABG O2 Saturation ABG Base Excess ABG Hemoglobin Oxyhemoglobin Sodium Potassium 3.0 L Chloride Carbon Dioxide BUN Creatinine Glucose POC Glucose 190 H 211 H Hemoglobin A1c Lactic Acid Calcium Phosphorus Magnesium Ferritin AST ALT Alkaline Phosphatase Lactate Dehydrogenase Troponin T C-Reactive Protein Total Protein Albumin LDL Cholesterol Direct Urine Creatinine Urine Total Protein Salicylates Acetaminophen Crossmatch 11/08/21 11/08/21 11/09/21 21:34 21:40 00:36 WBC RBC Hgb Hct MCH RDW Plt Count Lymph % (Auto) Lymph # (Auto) [place] # (Auto) Seg Neutrophils % Seg Neuts % (Manual) Lymphocytes % (Manual) Nucleated RBC % Seg Neutrophils # Seg Neutrophils # Man Monocytes # (Manual) PT INR APTT D-Dimer Heparin Anti-Xa Level ABG pH ABG pO2 ABG HCO3 ABG O2 Saturation ABG Base Excess ABG Hemoglobin Oxyhemoglobin Sodium 148 H Potassium 2.8 L* Chloride Carbon Dioxide 31 H BUN 68 H Creatinine 1.5 H Glucose 191 H POC Glucose 194 H 140 H Hemoglobin A1c Lactic Acid Calcium 8.2 L Phosphorus Magnesium Ferritin AST ALT Alkaline Phosphatase Lactate Dehydrogenase Troponin T C-Reactive Protein Total Protein Albumin LDL Cholesterol Direct Urine Creatinine Urine Total Protein Salicylates Acetaminophen Crossmatch 11/09/21 11/09/21 11/09/21 04:51 04:51 04:51 WBC 27.6 H RBC 3.18 L Hgb 8.4 L Hct 26.6 L MCH 27 L RDW 15.3 H Plt Count Lymph % (Auto) Lymph # (Auto) [place] # (Auto) Seg Neutrophils % Seg Neuts % (Manual) Lymphocytes % (Manual) Nucleated RBC % Seg Neutrophils # Seg Neutrophils # Man Monocytes # (Manual) PT INR APTT D-Dimer Heparin Anti-Xa Level 0.18 L ABG pH ABG pO2 ABG HCO3 ABG O2 Saturation ABG Base Excess ABG Hemoglobin Oxyhemoglobin Sodium 148 H Potassium 2.7 L* Chloride Carbon Dioxide BUN 59 H Creatinine 1.4 H Glucose 143 H POC Glucose Hemoglobin A1c Lactic Acid Calcium 8.3 L Phosphorus Magnesium Ferritin AST ALT Alkaline Phosphatase Lactate Dehydrogenase Troponin T C-Reactive Protein Total Protein Albumin LDL Cholesterol Direct Urine Creatinine Urine Total Protein Salicylates Acetaminophen Crossmatch 11/09/21 11/09/21 11/09/21 05:52 08:45 11:00 WBC RBC Hgb Hct MCH RDW Plt Count Lymph % (Auto) Lymph # (Auto) [place] # (Auto) Seg Neutrophils % Seg Neuts % (Manual) Lymphocytes % (Manual) Nucleated RBC % Seg Neutrophils # Seg Neutrophils # Man Monocytes # (Manual) PT INR APTT D-Dimer Heparin Anti-Xa Level ABG pH ABG pO2 73.2 L ABG HCO3 33.8 H ABG O2 Saturation ABG Base Excess 8.7 H ABG Hemoglobin 8.5 L Oxyhemoglobin 94.1 L Sodium Potassium Chloride Carbon Dioxide BUN Creatinine Glucose POC Glucose 166 H 136 H Hemoglobin A1c Lactic Acid Calcium Phosphorus Magnesium Ferritin AST ALT Alkaline Phosphatase Lactate Dehydrogenase Troponin T C-Reactive Protein Total Protein Albumin LDL Cholesterol Direct Urine Creatinine Urine Total Protein Salicylates Acetaminophen Crossmatch 11/09/21 11/09/21 11/09/21 15:48 16:10 20:31 WBC RBC Hgb Hct MCH RDW Plt Count Lymph % (Auto) Lymph # (Auto) [place] # (Auto) Seg Neutrophils % Seg Neuts % (Manual) Lymphocytes % (Manual) Nucleated RBC % Seg Neutrophils # Seg Neutrophils # Man Monocytes # (Manual) PT INR APTT D-Dimer Heparin Anti-Xa Level ABG pH ABG pO2 ABG HCO3 ABG O2 Saturation ABG Base Excess ABG Hemoglobin Oxyhemoglobin Sodium Potassium 2.8 L* Chloride Carbon Dioxide 31 H BUN 53 H Creatinine 1.3 H Glucose 208 H POC Glucose 203 H 166 H Hemoglobin A1c Lactic Acid Calcium 7.9 L Phosphorus Magnesium Ferritin AST ALT Alkaline Phosphatase Lactate Dehydrogenase Troponin T C-Reactive Protein Total Protein Albumin LDL Cholesterol Direct Urine Creatinine Urine Total Protein Salicylates Acetaminophen Crossmatch 11/09/21 11/09/21 11/09/21 21:30 23:16 Unknown WBC RBC Hgb Hct MCH RDW Plt Count Lymph % (Auto) Lymph # (Auto) [place] # (Auto) Seg Neutrophils % Seg Neuts % (Manual) Lymphocytes % (Manual) Nucleated RBC % Seg Neutrophils # Seg Neutrophils # Man Monocytes # (Manual) PT INR APTT D-Dimer Heparin Anti-Xa Level 0.24 L ABG pH ABG pO2 ABG HCO3 ABG O2 Saturation ABG Base Excess ABG Hemoglobin Oxyhemoglobin Sodium Potassium Chloride Carbon Dioxide BUN 52 H Creatinine 1.4 H Glucose 185 H POC Glucose 172 H Hemoglobin A1c Lactic Acid Calcium 7.8 L Phosphorus Magnesium Ferritin AST ALT Alkaline Phosphatase Lactate Dehydrogenase Troponin T C-Reactive Protein Total Protein Albumin LDL Cholesterol Direct Urine Creatinine Urine Total Protein Salicylates Acetaminophen Crossmatch 11/10/21 11/10/21 11/10/21 02:00 04:17 04:17 WBC 24.5 H RBC 2.75 L Hgb 7.5 L Hct 22.9 L MCH 27 L RDW Plt Count Lymph % (Auto) Lymph # (Auto) [place] # (Auto) Seg Neutrophils % Seg Neuts % (Manual) Lymphocytes % (Manual) Nucleated RBC % Seg Neutrophils # Seg Neutrophils # Man Monocytes # (Manual) PT INR APTT D-Dimer Heparin Anti-Xa Level 0.26 L ABG pH ABG pO2 ABG HCO3 ABG O2 Saturation ABG Base Excess ABG Hemoglobin Oxyhemoglobin Sodium Potassium 2.9 L* Chloride Carbon Dioxide 35 H BUN 48 H Creatinine Glucose 212 H POC Glucose Hemoglobin A1c Lactic Acid Calcium 8.1 L Phosphorus Magnesium Ferritin AST ALT Alkaline Phosphatase Lactate Dehydrogenase Troponin T C-Reactive Protein Total Protein Albumin LDL Cholesterol Direct Urine Creatinine Urine Total Protein Salicylates Acetaminophen Crossmatch 11/10/21 11/10/21 11/10/21 05:01 08:39 11:03 WBC RBC Hgb Hct MCH RDW Plt Count Lymph % (Auto) Lymph # (Auto) [place] # (Auto) Seg Neutrophils % Seg Neuts % (Manual) Lymphocytes % (Manual) Nucleated RBC % Seg Neutrophils # Seg Neutrophils # Man Monocytes # (Manual) PT INR APTT D-Dimer Heparin Anti-Xa Level 0.12 L ABG pH ABG pO2 ABG HCO3 ABG O2 Saturation ABG Base Excess ABG Hemoglobin Oxyhemoglobin Sodium Potassium Chloride Carbon Dioxide BUN Creatinine Glucose POC Glucose 203 H 152 H Hemoglobin A1c Lactic Acid Calcium Phosphorus Magnesium Ferritin AST ALT Alkaline Phosphatase Lactate Dehydrogenase Troponin T C-Reactive Protein Total Protein Albumin LDL Cholesterol Direct Urine Creatinine Urine Total Protein Salicylates Acetaminophen Crossmatch 11/10/21 11/10/21 11/10/21 12:45 15:43 21:05 WBC RBC Hgb Hct MCH RDW Plt Count Lymph % (Auto) Lymph # (Auto) [place] # (Auto) Seg Neutrophils % Seg Neuts % (Manual) Lymphocytes % (Manual) Nucleated RBC % Seg Neutrophils # Seg Neutrophils # Man Monocytes # (Manual) PT INR APTT D-Dimer Heparin Anti-Xa Level ABG pH ABG pO2 ABG HCO3 ABG O2 Saturation ABG Base Excess ABG Hemoglobin Oxyhemoglobin Sodium 146 H Potassium 3.3 L Chloride Carbon Dioxide 31 H BUN 43 H Creatinine Glucose 155 H POC Glucose 139 H 139 H Hemoglobin A1c Lactic Acid Calcium 8.3 L Phosphorus Magnesium Ferritin AST ALT Alkaline Phosphatase Lactate Dehydrogenase Troponin T C-Reactive Protein Total Protein Albumin LDL Cholesterol Direct Urine Creatinine Urine Total Protein Salicylates Acetaminophen Crossmatch 11/10/21 11/11/21 11/11/21 23:25 03:49 03:49 WBC 22.1 H RBC 2.69 L Hgb 7.2 L Hct 22.7 L MCH 27 L RDW Plt Count Lymph % (Auto) Lymph # (Auto) [place] # (Auto) Seg Neutrophils % Seg Neuts % (Manual) Lymphocytes % (Manual) Nucleated RBC % Seg Neutrophils # Seg Neutrophils # Man Monocytes # (Manual) PT INR APTT D-Dimer Heparin Anti-Xa Level ABG pH ABG pO2 ABG HCO3 ABG O2 Saturation ABG Base Excess ABG Hemoglobin Oxyhemoglobin Sodium Potassium Chloride Carbon Dioxide 32 H BUN 44 H Creatinine 1.3 H Glucose 173 H POC Glucose 146 H Hemoglobin A1c Lactic Acid Calcium Phosphorus Magnesium Ferritin AST ALT Alkaline Phosphatase Lactate Dehydrogenase Troponin T C-Reactive Protein Total Protein Albumin LDL Cholesterol Direct Urine Creatinine Urine Total Protein Salicylates Acetaminophen Crossmatch 11/11/21 11/11/21 11/11/21 05:03 10:50 11:32 WBC RBC Hgb Hct MCH RDW Plt Count Lymph % (Auto) Lymph # (Auto) [place] # (Auto) Seg Neutrophils % Seg Neuts % (Manual) Lymphocytes % (Manual) Nucleated RBC % Seg Neutrophils # Seg Neutrophils # Man Monocytes # (Manual) PT INR APTT D-Dimer Heparin Anti-Xa Level ABG pH ABG pO2 ABG HCO3 ABG O2 Saturation ABG Base Excess ABG Hemoglobin Oxyhemoglobin Sodium Potassium Chloride Carbon Dioxide BUN Creatinine Glucose POC Glucose 152 H 129 H 133 H Hemoglobin A1c Lactic Acid Calcium Phosphorus Magnesium Ferritin AST ALT Alkaline Phosphatase Lactate Dehydrogenase Troponin T C-Reactive Protein Total Protein Albumin LDL Cholesterol Direct Urine Creatinine Urine Total Protein Salicylates Acetaminophen Crossmatch 11/11/21 11/11/21 11/11/21 13:53 16:31 17:13 WBC RBC Hgb Hct MCH RDW Plt Count Lymph % (Auto) Lymph # (Auto) [place] # (Auto) Seg Neutrophils % Seg Neuts % (Manual) Lymphocytes % (Manual) Nucleated RBC % Seg Neutrophils # Seg Neutrophils # Man Monocytes # (Manual) PT INR APTT D-Dimer Heparin Anti-Xa Level ABG pH 7.475 H ABG pO2 64.1 L ABG HCO3 32.4 H ABG O2 Saturation ABG Base Excess 8.0 H ABG Hemoglobin 7.6 L Oxyhemoglobin 94.0 L Sodium Potassium Chloride Carbon Dioxide BUN Creatinine Glucose POC Glucose 116 H 125 H Hemoglobin A1c Lactic Acid Calcium Phosphorus Magnesium Ferritin AST ALT Alkaline Phosphatase Lactate Dehydrogenase Troponin T C-Reactive Protein Total Protein Albumin LDL Cholesterol Direct Urine Creatinine Urine Total Protein Salicylates Acetaminophen Crossmatch 11/11/21 11/11/21 11/12/21 20:40 23:35 03:30 WBC 17.7 H RBC 2.37 L Hgb 6.3 L Hct 20.0 L MCH 27 L RDW 15.5 H Plt Count Lymph % (Auto) Lymph # (Auto) [place] # (Auto) Seg Neutrophils % Seg Neuts % (Manual) Lymphocytes % (Manual) Nucleated RBC % Seg Neutrophils # Seg Neutrophils # Man Monocytes # (Manual) PT INR APTT D-Dimer Heparin Anti-Xa Level 0.26 L ABG pH ABG pO2 ABG HCO3 ABG O2 Saturation ABG Base Excess ABG Hemoglobin Oxyhemoglobin Sodium Potassium Chloride Carbon Dioxide BUN Creatinine Glucose POC Glucose 118 H Hemoglobin A1c Lactic Acid Calcium Phosphorus Magnesium Ferritin AST ALT Alkaline Phosphatase Lactate Dehydrogenase Troponin T C-Reactive Protein Total Protein Albumin LDL Cholesterol Direct Urine Creatinine Urine Total Protein Salicylates Acetaminophen Crossmatch 11/12/21 11/12/21 11/12/21 03:30 04:15 11:53 WBC RBC Hgb Hct MCH RDW Plt Count Lymph % (Auto) Lymph # (Auto) [place] # (Auto) Seg Neutrophils % Seg Neuts % (Manual) Lymphocytes % (Manual) Nucleated RBC % Seg Neutrophils # Seg Neutrophils # Man Monocytes # (Manual) PT INR APTT D-Dimer Heparin Anti-Xa Level ABG pH ABG pO2 ABG HCO3 ABG O2 Saturation ABG Base Excess ABG Hemoglobin Oxyhemoglobin Sodium Potassium Chloride Carbon Dioxide 33 H BUN 38 H Creatinine 1.3 H Glucose 102 H POC Glucose 62 L Hemoglobin A1c Lactic Acid Calcium 8.2 L Phosphorus Magnesium Ferritin AST ALT Alkaline Phosphatase Lactate Dehydrogenase Troponin T C-Reactive Protein Total Protein Albumin LDL Cholesterol Direct Urine Creatinine Urine Total Protein Salicylates Acetaminophen Crossmatch See Detail Chest x-ray: image reviewed Allied health notes reviewed: nursing
--- NOTE | 2021-11-12 15:03 | Progress Note ---
Assessment and Plan Assessment: Acute Renal Failure secondary to Ischemic ATN secondary to Sepsis, Cardiac arrest and Hypotension S/P Cardiac Arrest Acute Hypoxemic Respiratory Failure Acute DVT Sepsis CHF Anemia Hyperkalemia Plan: Renal labs reviewed. Serum creatinine 1.3 today, yesterday's was 1.3, stable, non-oliguric ARF likely secondary to Ischemic ATN No IVF as LVEF 25-30 % On Lasix 40 mg IV BID DVT-S/P Heparin drip Sinus Tachycardia-S/P Amiodarone drip Anemia-transfuse as needed Obtain daily weights Strict I/O's daily Renally dose medications Avoid nephrotoxic agents Continue to monitor renal function Plan of care reviewed by Dr. Giordano Subjective Date of service: 11/12/21 Principal diagnosis: AHRF; Cardiac arrest; R. pneumothorax; pneumonia; AMS; DVT's; SIERRA; Obesity Interval history: Patient was extubated yesterday. Patient awake and talking. She states she is tired and exhausted and asked when is her room going to be ready. No family at bedside. Objective - Vital Signs Vital signs: Vital Signs - 12hr 11/12/21 11/12/21 11/12/21 03:21 03:30 04:00 Temperature 98.9 F Pulse Rate 63 60 Pulse Rate [ 63 From Monitor] Respiratory 24 20 Rate Blood Pressure 156/85 143/79 O2 Sat by Pulse 100 100 Oximetry 11/12/21 11/12/21 11/12/21 04:30 05:00 05:23 Temperature Pulse Rate 60 62 61 Pulse Rate [ From Monitor] Respiratory 19 22 19 Rate Blood Pressure 136/75 132/84 132/84 O2 Sat by Pulse 99 100 100 Oximetry 11/12/21 11/12/21 11/12/21 05:30 06:00 06:15 Temperature Pulse Rate 63 60 60 Pulse Rate [ From Monitor] Respiratory 17 22 24 Rate Blood Pressure 152/80 153/78 153/78 O2 Sat by Pulse 100 100 100 Oximetry 11/12/21 11/12/21 11/12/21 06:31 06:45 07:00 Temperature Pulse Rate 61 61 65 Pulse Rate [ From Monitor] Respiratory 18 22 23 Rate Blood Pressure 166/93 166/93 163/88 O2 Sat by Pulse 100 100 99 Oximetry 11/12/21 11/12/21 11/12/21 07:15 07:30 07:34 Temperature Pulse Rate 59 L 64 61 Pulse Rate [ From Monitor] Respiratory 19 23 17 Rate Blood Pressure 163/88 172/89 172/89 O2 Sat by Pulse 99 99 99 Oximetry 11/12/21 11/12/21 11/12/21 07:45 08:00 08:15 Temperature 98 F Pulse Rate 63 65 66 Pulse Rate [ 65 From Monitor] Respiratory 22 26 H 25 H Rate Blood Pressure 172/89 163/86 163/86 O2 Sat by Pulse 99 97 97 Oximetry 11/12/21 11/12/21 11/12/21 08:30 08:45 09:00 Temperature Pulse Rate 67 66 68 Pulse Rate [ From Monitor] Respiratory 28 H 25 H 27 H Rate Blood Pressure 160/83 160/83 170/93 O2 Sat by Pulse 96 99 98 Oximetry 11/12/21 11/12/21 11/12/21 09:15 09:30 09:45 Temperature Pulse Rate 67 70 71 Pulse Rate [ From Monitor] Respiratory 24 24 22 Rate Blood Pressure 170/93 171/97 137/81 O2 Sat by Pulse 98 98 95 Oximetry 11/12/21 11/12/21 11/12/21 10:01 10:15 10:31 Temperature Pulse Rate 70 74 80 Pulse Rate [ From Monitor] Respiratory 30 H 28 H 22 Rate Blood Pressure 137/81 137/81 137/81 O2 Sat by Pulse 98 97 98 Oximetry 11/12/21 11/12/21 11/12/21 10:35 10:45 11:00 Temperature 100.5 F H Pulse Rate 78 79 78 Pulse Rate [ From Monitor] Respiratory 33 H 33 H 32 H Rate Blood Pressure 143/77 145/73 127/71 O2 Sat by Pulse 98 95 Oximetry 11/12/21 11/12/21 11/12/21 11:15 11:30 11:45 Temperature Pulse Rate 80 84 87 Pulse Rate [ From Monitor] Respiratory 32 H 34 H 25 H Rate Blood Pressure 124/72 112/67 126/66 O2 Sat by Pulse 98 Oximetry 11/12/21 11/12/21 11/12/21 12:00 12:15 12:31 Temperature 99.6 F Pulse Rate 82 90 87 Pulse Rate [ 82 From Monitor] Respiratory 39 H 36 H 26 H Rate Blood Pressure 106/58 106/58 85/50 O2 Sat by Pulse 100 79 L Oximetry 11/12/21 11/12/21 11/12/21 12:45 13:00 13:15 Temperature Pulse Rate 91 H 86 82 Pulse Rate [ From Monitor] Respiratory 39 H 40 H 36 H Rate Blood Pressure 87/51 104/75 104/75 O2 Sat by Pulse 97 97 98 Oximetry 11/12/21 11/12/21 11/12/21 13:31 14:00 14:31 Temperature Pulse Rate 79 83 89 Pulse Rate [ From Monitor] Respiratory 36 H 36 H 39 H Rate Blood Pressure 103/57 84/55 97/64 O2 Sat by Pulse 99 96 Oximetry - General Appearance General appearance: well-developed, appears stated age, obese, fatigue EENT: ATNC, PERRL Neck: no JVD, supple Respiratory: Present: Decreased Breath Sounds Cardiology: S1S2 Gastrointestinal: normoactive bowel sounds Integumentary: warm and dry Neurologic: other (Awake) Musculoskeletal: other (positive edema) - Lab 11/12/21 03:30 11/12/21 03:30 Most recent lab results ABG pH 7.475 pH Units (7.350-7.450) H 11/11/21 13:53 ABG pCO2 45.0 mm Hg 11/11/21 13:53 ABG pO2 64.1 mm Hg (80.0-90.0) L 11/11/21 13:53 ABG HCO3 32.4 mmol/L (20.0-26.0) H 11/11/21 13:53 ABG O2 Saturation 96.3 % (95.0-99.0) 11/11/21 13:53 Calcium 8.2 mg/dL (8.4-10.2) L 11/12/21 03:30 Phosphorus 4.00 mg/dL (2.5-4.5) 11/12/21 03:30 Magnesium 1.90 mg/dL (1.7-2.3) 11/12/21 03:30 Urine Creatinine 190.9 mg/dL (0.1-20.0) H 11/04/21 Unknown Urine Sodium 10 mmol/L 11/04/21 Unknown Urine Total Protein 172 mg/dL (5-11.8) H 11/04/21 Unknown Medications & Allergies - Medications Allergies/Adverse Reactions: Allergies No Known Allergies Allergy (Verified 10/29/21 14:01) Home Medications: Home Medications Medication Instructions Recorded Confirmed Last Taken Type Unobtainable 11/10/21 11/10/21 Unknown History Active Medications: Generic Name Dose Route Start Last Admin Trade Name Freq PRN Reason Stop Dose Admin Acetaminophen 650 mg 10/29/21 17:04 11/11/21 13:35 Acetaminophen 325 Mg Tab PO 650 mg Q6H PRN Administration Pain, Mild (1-3) Acetaminophen 650 mg 10/29/21 17:04 Acetaminophen 650 Mg Rect Supp VT Q6H PRN Pain MILD(1-3)/Fever >100.5/NIEVES Amiodarone HCl 200 mg 11/08/21 10:00 11/12/21 12:24 Amiodarone 200 Mg Tab PO Not Given QDAY RAMON Lipase/Protease/Amylase 1 each 10/31/21 08:56 Lipase 10,500/Protease 25,000/Amylase 43,750 (Units) Dr Ivory FEEDTUBE PRN PRN For Clogged Feeding Tube Dextrose 0 ml 11/04/21 13:48 11/12/21 05:45 Dextrose 10% *Hypoglycemia IV 50 ml PRN PRN Administration Hypoglycemia Famotidine 10 mg 11/06/21 10:00 11/12/21 12:24 Famotidine 10 Mg Tab PO Not Given BID RAMON Fentanyl 50 mcg 11/04/21 14:32 11/09/21 00:01 Fentanyl 100 Mcg/2 Ml Inj IV 50 mcg Q2H PRN Administration Pain, Moderate (4-6) Furosemide 40 mg 11/12/21 18:00 Furosemide 40 Mg/4 Ml Inj IV 11/16/21 17:59 0600,1800 RAMON Furosemide 40 mg 11/17/21 10:00 Furosemide 40 Mg Tab PO QDAY RAMON Hydralazine HCl 50 mg 11/09/21 14:00 11/12/21 13:02 Hydralazine 25 Mg Tab PO Not Given Q8HR RAMON Hydralazine HCl 10 mg 11/09/21 13:05 Hydralazine 20 Mg/1 Ml Inj IV Q4HR PRN Hypertension Hydrophilic Ointment 1 applic 10/29/21 14:29 11/09/21 08:51 Lip Therapy Vaseline TP 1 applic Q2HR PRN Administration Dry Lips NORepinephrine/NS 8 MG-250 ML 8 mg in 250 mls @ 3.75 mls/hr 10/29/21 15:00 07:00 Norepinephrine/Ns 8 Mg-250 Ml (Double Conc) IV 0 mcg/min TITRATE RAMON 0 mls/hr Titration Protocol 2 MCG/MIN Dexmedetomidine HCl 400 mcg/ 100 mls @ 5.335 mls/hr 11/11/21 21:00 11/12/21 10:58 Sodium Chloride IV 0.6 mcg/kg/hr TITRATE RAMON 16.005 mls/hr Administration Protocol 0.2 MCG/KG/HR Dextrose 1,000 mls @ 42 mls/hr 11/12/21 13:00 11/12/21 13:07 D5w IV 42 mls/hr DIRECT RAMON Administration Insulin Glargine 20 units 11/12/21 22:00 Insulin Glargine 100 Units/Ml SUB-Q QHS [facility] Insulin Human Lispro 0 unit 10/30/21 16:00 11/12/21 12:23 Insulin Lispro 100 Unit/Ml SUB-Q Not Given Q6HR [facility] Protocol Isosorbide Mononitrate 30 mg 11/08/21 10:00 11/12/21 12:24 Isosorbide Mononitrate Er 30 Mg Tab PO Not Given QDAY [facility] Metoprolol Tartrate 50 mg 11/07/21 12:00 11/12/21 12:24 Metoprolol Tartrate 50 Mg Tab FEEDTUBE Not Given Q6H [facility] Multi-Ingred Cream/Lotion/Oil/Oint 1 applic 10/29/21 14:29 11/06/21 09:25 Mineral Oil/Petrolatum, White Ophth Oint 3.5 Gm OU 1 applic Q4HR PRN Administration Dry Eye(s) Senna/Docusate Sodium 1 tab 10/29/21 15:00 11/12/21 12:25 Sennosides/Docusate Sodium 8.6/50 Mg Tab FEEDTUBE Not Given BID RAMON Simple Syrup 15 ml 10/31/21 08:56 Simple Syrup 15 Ml FEEDTUBE PRN PRN Hypoglycemia Simple Syrup 30 ml 10/31/21 08:56 Simple Syrup 15 Ml FEEDTUBE PRN PRN Hypoglycemia Sodium Bicarbonate 325 mg 10/31/21 08:56 Sodium Bicarbonate 325 Mg Tab FEEDTUBE PRN PRN For Clogged Feeding Tube Sodium Chloride 10 ml 10/29/21 22:00 11/11/21 21:07 Sodium Chloride 0.9% 10 Ml Flush Syringe IV 10 ml BID RAMON Administration Sodium Chloride 10 ml 10/29/21 17:04 Sodium Chloride 0.9% 10 Ml Flush Syringe IV PRN PRN LINE FLUSH Spironolactone 25 mg 11/10/21 10:00 11/12/21 12:24 Spironolactone 25 Mg Tab PO Not Given QDAY RAMON
[2021-11-12] MEDS: FUROSEMIDE 40 MG/4 ML INJ IV SCH (17:22)
--- NOTE | 2021-11-12 17:57 | Cat Scan Report ---
CT ABDOMEN AND PELVIS WITHOUT CONTRAST INDICATION / CLINICAL INFORMATION: R/o retroperitoneal bleed. TECHNIQUE: Axial CT images were obtained through the abdomen and pelvis without IV contrast. All CT scans at this location are performed using CT dose reduction for ALARA by means of automated exposure control. COMPARISON: None available. FINDINGS: LOWER CHEST: Small basilar effusions with associated atelectasis left greater than right. LIVER: No significant abnormality. GALLBLADDER: Surgically absent. BILE DUCTS: No significant abnormality. PANCREAS: No significant abnormality. SPLEEN: No significant abnormality. ADRENALS: No significant abnormality. RIGHT KIDNEY / URETER: Small nonobstructing stones. LEFT KIDNEY / URETER: Small nonobstructing stones. STOMACH / SMALL BOWEL: No significant abnormality. COLON: No significant abnormality. APPENDIX: No significant abnormality. PERITONEUM: No free fluid. No free air. No fluid collection. LYMPH NODES: No significant adenopathy. VASCULAR STRUCTURES: No significant abnormality. URINARY BLADDER: Decompressed by a Gregory catheter. REPRODUCTIVE ORGANS: No significant abnormality. ADDITIONAL FINDINGS: Large hematoma at the abdominal wall musculature posterior laterally on left at the lower abdomen. The largest discrete component measures approximately 11.8 x 7.8 x 11.7 cm. A larg e, mixed density retroperitoneal hematoma arises just below the level of the left kidney and extends into the deep pelvis measures 22.3 x 13.7 x 8 cm. Prominent inflammation/thickening is also seen at t he left lateral abdominal wall. Mild diffuse soft tissue anasarca is also present. SKELETAL SYSTEM: Fractures involving the anterolateral aspect of the right fourth through seventh rib s bilaterally. IMPRESSION: 1. Large hematomas at the left retroperitoneum and the left posterior lateral abdominal wall. 2. Fractures involving the right and left fourth through seventh anterolateral ribs. 3. Soft tissue anasarca. 4. Small basilar effusions with associated atelectasis left greater than right. CRITICAL RESULT: Time of Discovery: 4:40 PM Time of Communication: 4:47 PM Licensed Practitioner Receiving Report: Devi in CCU Read Back Performed: Yes. Signer Name: Bassem Louis MD Signed: 11/12/2021 5:52 PM Workstation Name: [id number]
--- NOTE | 2021-11-12 17:58 | Progress Note ---
Assessment and Plan Assessment: Cardiopulmonary Arrest NSTEMI Acute Respiratory Failure Sepsis s/p Shock Aspiration PNA R PTX (s/p pleural drain placement) Acute Bilateral DVTs (on heparin gtt) PAFlutter w RVR (maintaining SR) Acute HFrEF CMP (EF 25-30% on echo this admission) SIERRA Transaminitis Severe Anemia Obesity Plan: Continue IV diuresis. Continue Amiodarone 200mg daily and Lopressor 50mg q6h. No ACEI/ARB/ARNI due to renal fxn. Pt seen in conjunction with Dr. Sara Cueto, who agrees with the assessment and plan of care. - Patient Problems (1) Cardiopulmonary arrest Current Visit: Yes Status: Acute (2) Aspiration pneumonia Current Visit: Yes Status: Acute (3) Paroxysmal atrial flutter Current Visit: Yes Status: Acute Subjective Date of service: 11/12/21 Principal diagnosis: Cardiopulmonary Arrest Interval history: Extubated and on NC. Undergoing swallow eval upon assessment. No acute cardiac complaints. States she is weak and hungry. Blood transfusion underway. Tele reviewed - SR 80s, no events overnight. Objective Last Vital Signs Temp 99.6 F 11/12/21 12:00 Pulse 91 H 11/12/21 17:01 Resp 17 11/12/21 17:01 BP 103/71 11/12/21 17:01 Pulse Ox 99 11/12/21 17:01 - Physical Examination General: No Apparent Distress HEENT: Positive: EOMI, Normocephaly Neck: Negative: JVD/HJR Cardiac: Positive: Reg Rate and Rhythm, S1/S2 Lungs: Positive: Decreased Breath Sounds Neuro: Positive: Grossly Intact Abdomen: Positive: Soft Skin: Negative: Rash Musculoskeletal: No Pain Extremities: Present: edema, warm - Labs and Meds CBC 11/12/21 Range/Units 03:30 WBC 17.7 H (4.5-11.0) K/mm3 RBC 2.37 L (3.65-5.03) M/mm3 Hgb 6.3 L (10.1-14.3) gm/dl Hct 20.0 L (30.3-42.9) % Plt Count 256 (140-440) K/mm3 Comprehensive Metabolic Panel 11/12/21 Range/Units 03:30 Sodium 145 (137-145) mmol/L Potassium 3.9 (3.6-5.0) mmol/L Chloride 106.1 (98-107) mmol/L Carbon Dioxide 33 H (22-30) mmol/L BUN 38 H (7-17) mg/dL Creatinine 1.3 H (0.6-1.2) mg/dL Glucose 102 H (65-100) mg/dL Calcium 8.2 L (8.4-10.2) mg/dL - Imaging and Cardiology EKG: report reviewed, image reviewed Echo: report reviewed - Telemetry EKG Rhythm: Sinus Rhythm - EKG Supraventricular dysrhythmia: atrial flutter Ventricular dysrhythmias: ventricular premature com Repolarization changes or abnormalities: nonspecific abnormality, ST segment, and/or T wave Myocardial infarction: septal CO (old age or ind
[2021-11-12 19:31] LABS: Hemoglobin 6.2 gm/dl (10.1-14.3)
[2021-11-12 19:51] LABS: Hematocrit 19.5 % (30.3-42.9)
[2021-11-12] MEDS ORDERED: SODIUM CHLORIDE 0.9% 500 ML 500 ML IV SCH (20:00)
[2021-11-12] MEDS ORDERED: INSULIN GLARGINE 100 UNITS/ML SUB-Q SCH (22:00)
[2021-11-13 00:27] LABS: Hematocrit 23.3 % (30.3-42.9); Hemoglobin 7.4 gm/dl (10.1-14.3)
[2021-11-13 05:02] LABS: Hematocrit 24.9 % (30.3-42.9); Hemoglobin 7.8 gm/dl (10.1-14.3); Mean Corpuscular HGB Conc 31 % (30-34); Mean Corpuscular Volume 88 fl (79-97); Platelet Count 262 K/mm3 (140-440); Red Blood Count 2.84 M/mm3 (3.65-5.03); Red Cell Distribution Width 15.4 % (13.2-15.2)
[2021-11-13 05:16] LABS: Calcium 7.9 mg/dL (8.4-10.2)
[2021-11-13] MEDS: METOPROLOL TARTRATE 50 MG TAB FEEDTUBE SCH ×2 (05:23→19:02)
[2021-11-13] MEDS: INSULIN LISPRO 100 UNIT/ML SUB-Q SCH ×4 (05:23→20:00)
[2021-11-13] MEDS: FUROSEMIDE 40 MG/4 ML INJ IV SCH (05:32)
[2021-11-13 08:57] LABS: Bilirubin,Urine NEG (Negative); Blood,Urine SM (Negative); Color,Urine Yellow (Yellow); Protein,Urine <15 mg/dL mg/dL (Negative); RBC,Urine < 1.0 /HPF (0.0-6.0); Urobilinogen,Urine < 2.0 mg/dL (<2.0); WBC,Urine < 1.0 /HPF (0.0-6.0)
[2021-11-13] MEDS: SPIRONOLACTONE 25 MG TAB PO SCH (10:16)
[2021-11-13] MEDS: FAMOTIDINE 10 MG TAB PO SCH ×2 (10:16→22:05)
[2021-11-13] MEDS: SENNOSIDES/DOCUSATE SODIUM 8.6/50 MG TAB FEEDTUBE SCH ×2 (10:16→22:05)
[2021-11-13] MEDS: AMIODARONE 200 MG TAB PO SCH (10:16)
--- NOTE | 2021-11-13 10:24 | XRay Report ---
ABDOMEN 1 VIEW(S) INDICATION / CLINICAL INFORMATION: NGT placement. COMPARISON: None available. FINDINGS: TUBES / LINES: NG tube in satisfactory position. BOWEL GAS PATTERN: Mild bowel distention without evidence of obstruction. ADDITIONAL FINDINGS: No significant additional findings. Signer Name: Bassem Louis MD Signed: 11/13/2021 10:20 AM Workstation Name: [id number]
--- NOTE | 2021-11-13 11:54 | XRay Report ---
CHEST 1 VIEW 11/13/2021 10:40 AM INDICATION / CLINICAL INFORMATION: Dyspnea. COMPARISON: Previous day. FINDINGS: SUPPORT DEVICES: NG tube in satisfactory position. HEART / MEDIASTINUM: Stable. LUNGS / PLEURA: Lung volumes remain diminished. Persistent pleural fluid with associated volume loss at the left base. Superimposed edema is mildly improved. No pneumothorax. ADDITIONAL FINDINGS: No significant additional findings. IMPRESSION: 1. Mild improving edema. 2. Persistent left basilar effusion with associated volume loss. 3. NG tube in satisfactory position. Signer Name: Bassem Louis MD Signed: 11/13/2021 11:50 AM Workstation Name: [id number]
--- NOTE | 2021-11-13 12:47 | Progress Note ---
Assessment and Plan Acute hypoxemic respiratory failure s/p MVS Cardiac arrest with ROSC - 10/30 Echocardiogram shows left ventricular systolic function severely decreased, LVEF 25 to 30%, no pericardial effusion Acute DVT in the left posterior tibial vein and bilateral peroneal veins -CTA chest on admission with no evidence of PE Anemia- possible acute blood loss Right pneumothorax s/p pleural drain placement SIERRA Hypernatremia Altered mental status/acute encephalopathy Obesity CT - shows retroperitoneal hemorrhage Heparin stopped. Vascular consulted for IVC placement- she has required supportive transfusions s/p 2 units PRBC Supportive transfusions, keep HgB>7g/dL Continue to titrate supplemental oxygen to keep SpO2 88-90% BIPAP qhs and prn She failed swallow evalution- place NGT for medications and enteric nutritional support Continue accuchecks with glycemic control per SSI (While critically ill target blood glucose of 140-180 mg/dL; avoid hypoglycemia) Continue to avoid nephrotoxins, renally dose all medications Continue to avoid benzodiazepines , reduce the possibility of delirium Continue with heart failure measures Contieu with free water flushes and hypotonic solutions fro hypernatremia Maintenance of sleep-wake cycle, avoid delirium Continue mobility, frequent turning and off loading for pressure ulcer prevention Monitor hemodynamics closely continue other care per attending / other consultants COVID SPECIFIC INTERVENTIONS - COVID-19 PCR negative CONDITION: CRITICAL PROGNOSIS: GUARDED CODE STATUS: FULL CODE The high probability of a clinically significant, sudden or life-threatening deterioration of the respiratory, cardiovascular, renal system(s) required my full and direct attention, intervention and personal management. The aggregate critical care time was 33 minutes without overlap. Time includes spent on; [x] Data Review and interpretation [x] Patient assessment and monitoring of vital signs [x] Documentation [x] Medication orders and management Subjective Date of service: 11/13/21 Principal diagnosis: AHRF; Cardiac arrest; R. pneumothorax; pneumonia; AMS; DVT 's; SIERRA; Obesity Interval history: Patient is seen today for: Acute hypoxemic respiratory failure; Cardiac arrest with ROSC; Right pneumothorax; pneumonia; AMS; bilateral DVT's; SIERRA; Obesity Seen and examined at bedside; 24hour events reviewed; nursing and respiratory care staff consulted; no adverse overnight events reported to me; remains on MVS; no emesis or overt aspiration;no adverse overnight events, Awake and alert, following simple commands. Objective Vital Signs - 12hr 11/13/21 11/13/21 11/13/21 01:00 01:30 02:00 Temperature Pulse Rate 75 67 76 Pulse Rate [ From Monitor] Respiratory 32 H 31 H 33 H Rate Blood Pressure 109/61 86/49 108/57 O2 Sat by Pulse 100 100 100 Oximetry 11/13/21 11/13/21 11/13/21 02:30 03:00 03:30 Temperature Pulse Rate 80 81 81 Pulse Rate [ From Monitor] Respiratory 24 31 H 33 H Rate Blood Pressure 111/66 131/67 120/69 O2 Sat by Pulse 100 100 100 Oximetry 11/13/21 11/13/21 11/13/21 03:42 04:00 04:01 Temperature 100.0 F H Pulse Rate 89 Pulse Rate [ 88 From Monitor] Respiratory 25 H 23 Rate Blood Pressure 125/59 O2 Sat by Pulse 100 100 Oximetry 11/13/21 11/13/21 11/13/21 04:20 04:30 05:00 Temperature Pulse Rate 82 81 87 Pulse Rate [ From Monitor] Respiratory 34 H 41 H 32 H Rate Blood Pressure 118/68 112/64 132/73 O2 Sat by Pulse 100 100 100 Oximetry 11/13/21 11/13/21 11/13/21 05:30 06:00 06:30 Temperature Pulse Rate 91 H 92 H 93 H Pulse Rate [ From Monitor] Respiratory 24 34 H 34 H Rate Blood Pressure 138/74 127/68 125/72 O2 Sat by Pulse 100 100 100 Oximetry 11/13/21 11/13/21 11/13/21 07:00 07:20 07:30 Temperature 99.4 F Pulse Rate 99 H 104 H Pulse Rate [ From Monitor] Respiratory 33 H 34 H Rate Blood Pressure 129/72 141/78 O2 Sat by Pulse 99 99 Oximetry 11/13/21 11/13/21 11/13/21 07:31 08:00 08:30 Temperature Pulse Rate 102 H 104 H 104 H Pulse Rate [ 86 From Monitor] Respiratory 33 H 34 H 35 H Rate Blood Pressure 136/68 140/68 124/70 O2 Sat by Pulse 100 97 98 Oximetry 11/13/21 11/13/21 11/13/21 09:01 09:30 10:00 Temperature Pulse Rate 111 H 145 H 145 H Pulse Rate [ From Monitor] Respiratory 34 H 32 H 36 H Rate Blood Pressure 124/70 141/68 155/85 O2 Sat by Pulse 97 96 97 Oximetry 11/13/21 11/13/21 10:16 11:21 Temperature 98.5 F Pulse Rate 143 H Pulse Rate [ From Monitor] Respiratory Rate Blood Pressure 140/81 O2 Sat by Pulse Oximetry Constitutional: no acute distress, other (elderly obese female with mildly increased respiratory effort at rest) Eyes: non-icteric, other (+ mild periorbital phymosis) ENT: oropharynx moist, oropharyngeal exudate pre (moderate), other (BIPAP) Neck: supple, no lymphadenopathy, no JVD Effort: mildly labored Ascultation: Bilateral: diminished breath sounds, rhonchi Percussion: Bilateral: not dull Cardiovascular: irregular rhythm, other (no R/M) Gastrointestinal: normoactive bowel sounds, soft, non-tender, other (obese) Integumentary: normal, other (Left flank ecchymosis with induration) Extremities: no cyanosis, pulses normal, no ischemia or petechiae Neurologic: normal mental status, non-focal exam (grossly), pupils equal and round, motor strength normal and (weak) Psychiatric: anxious CBC and BMP: 11/13/21 04:17 11/13/21 04:17 ABG, PT/INR, D-dimer: ABG ABG pH 7.475 pH Units (7.350-7.450) H 11/11/21 13:53 ABG pCO2 45.0 mm Hg 11/11/21 13:53 ABG pO2 64.1 mm Hg (80.0-90.0) L 11/11/21 13:53 ABG O2 Saturation 96.3 % (95.0-99.0) 11/11/21 13:53 PT/INR, D-dimer PT 17.2 Sec. (12.2-14.9) H 10/30/21 16:30 INR 1.27 (0.87-1.13) H 10/30/21 16:30 D-Dimer > 46136 ng/mlDDU (0-234) H 10/30/21 Unknown Abnormal lab findings: Abnormal Labs 10/29/21 10/29/21 10/29/21 15:10 15:10 15:10 WBC 27.8 H RBC Hgb Hct MCH 27 L RDW Plt Count Lymph % (Auto) Lymph # (Auto) [place] # (Auto) Seg Neutrophils % Seg Neuts % (Manual) 78.0 H Lymphocytes % (Manual) 10.0 L Nucleated RBC % Seg Neutrophils # Seg Neutrophils # Man 21.7 H Monocytes # (Manual) 1.4 H PT INR APTT D-Dimer Heparin Anti-Xa Level ABG pH ABG pO2 ABG HCO3 ABG O2 Saturation ABG Base Excess ABG Hemoglobin Oxyhemoglobin Sodium Potassium Chloride Carbon Dioxide BUN Creatinine Glucose POC Glucose Hemoglobin A1c Lactic Acid 6.80 H* Calcium Phosphorus Magnesium Ferritin AST ALT Alkaline Phosphatase Lactate Dehydrogenase Troponin T 0.089 H C-Reactive Protein Total Protein Albumin LDL Cholesterol Direct Urine Creatinine Urine Total Protein Salicylates Acetaminophen Crossmatch 10/29/21 10/29/21 10/29/21 15:10 15:10 15:10 WBC RBC Hgb Hct MCH RDW Plt Count Lymph % (Auto) Lymph # (Auto) [place] # (Auto) Seg Neutrophils % Seg Neuts % (Manual) Lymphocytes % (Manual) Nucleated RBC % Seg Neutrophils # Seg Neutrophils # Man Monocytes # (Manual) PT INR APTT D-Dimer Heparin Anti-Xa Level ABG pH ABG pO2 ABG HCO3 ABG O2 Saturation ABG Base Excess ABG Hemoglobin Oxyhemoglobin Sodium 136 L Potassium 2.8 L* Chloride 93.4 L Carbon Dioxide 20 L BUN Creatinine Glucose 330 H POC Glucose Hemoglobin A1c Lactic Acid Calcium Phosphorus Magnesium Ferritin AST 1013 H ALT 1289 H Alkaline Phosphatase 246 H Lactate Dehydrogenase Troponin T C-Reactive Protein Total Protein Albumin LDL Cholesterol Direct Urine Creatinine Urine Total Protein Salicylates < 0.3 L Acetaminophen 5.0 L Crossmatch 10/29/21 10/29/21 10/29/21 15:11 16:01 19:29 WBC RBC Hgb Hct MCH RDW Plt Count Lymph % (Auto) Lymph # (Auto) [place] # (Auto) Seg Neutrophils % Seg Neuts % (Manual) Lymphocytes % (Manual) Nucleated RBC % Seg Neutrophils # Seg Neutrophils # Man Monocytes # (Manual) PT INR APTT D-Dimer Heparin Anti-Xa Level ABG pH 7.307 L ABG pO2 64.1 L ABG HCO3 ABG O2 Saturation 90.8 L ABG Base Excess -2.9 L ABG Hemoglobin Oxyhemoglobin 89.3 L Sodium Potassium Chloride Carbon Dioxide BUN Creatinine Glucose POC Glucose Hemoglobin A1c Lactic Acid 2.60 H* Calcium Phosphorus Magnesium 2.90 H Ferritin AST ALT Alkaline Phosphatase Lactate Dehydrogenase Troponin T C-Reactive Protein Total Protein Albumin LDL Cholesterol Direct Urine Creatinine Urine Total Protein Salicylates Acetaminophen Crossmatch 10/29/21 10/29/21 10/30/21 19:40 22:34 04:30 WBC 16.2 H RBC Hgb Hct MCH 26 L RDW 15.5 H Plt Count Lymph % (Auto) 6.2 L Lymph # (Auto) 1.0 L [place] # (Auto) 0.9 H Seg Neutrophils % 88.1 H Seg Neuts % (Manual) Lymphocytes % (Manual) Nucleated RBC % Seg Neutrophils # 14.2 H Seg Neutrophils # Man Monocytes # (Manual) PT INR APTT D-Dimer Heparin Anti-Xa Level ABG pH ABG pO2 ABG HCO3 ABG O2 Saturation ABG Base Excess ABG Hemoglobin Oxyhemoglobin Sodium Potassium Chloride Carbon Dioxide BUN Creatinine Glucose POC Glucose Hemoglobin A1c Lactic Acid Calcium Phosphorus Magnesium Ferritin AST ALT Alkaline Phosphatase Lactate Dehydrogenase Troponin T 1.950 H* D 1.150 H* D C-Reactive Protein Total Protein Albumin LDL Cholesterol Direct 43 L Urine Creatinine Urine Total Protein Salicylates Acetaminophen Crossmatch 10/30/21 10/30/21 10/30/21 04:30 04:35 05:45 WBC RBC Hgb Hct MCH RDW Plt Count Lymph % (Auto) Lymph # (Auto) [place] # (Auto) Seg Neutrophils % Seg Neuts % (Manual) Lymphocytes % (Manual) Nucleated RBC % Seg Neutrophils # Seg Neutrophils # Man Monocytes # (Manual) PT INR APTT D-Dimer Heparin Anti-Xa Level ABG pH ABG pO2 69.5 L ABG HCO3 ABG O2 Saturation ABG Base Excess -2.7 L ABG Hemoglobin Oxyhemoglobin 94.7 L Sodium Potassium Chloride Carbon Dioxide 21 L BUN Creatinine Glucose 159 H POC Glucose 151 H Hemoglobin A1c Lactic Acid Calcium 7.9 L D Phosphorus Magnesium Ferritin AST 461 H ALT 686 H Alkaline Phosphatase 130 H Lactate Dehydrogenase Troponin T C-Reactive Protein Total Protein 5.6 L D Albumin 3.2 L LDL Cholesterol Direct Urine Creatinine Urine Total Protein Salicylates Acetaminophen Crossmatch 10/30/21 10/30/21 10/30/21 11:24 15:59 16:30 WBC RBC Hgb Hct MCH RDW Plt Count Lymph % (Auto) Lymph # (Auto) [place] # (Auto) Seg Neutrophils % Seg Neuts % (Manual) Lymphocytes % (Manual) Nucleated RBC % Seg Neutrophils # Seg Neutrophils # Man Monocytes # (Manual) PT 17.2 H INR 1.27 H APTT 44.4 H D-Dimer Heparin Anti-Xa Level ABG pH ABG pO2 ABG HCO3 ABG O2 Saturation ABG Base Excess ABG Hemoglobin Oxyhemoglobin Sodium Potassium Chloride Carbon Dioxide BUN Creatinine Glucose POC Glucose 153 H 109 H Hemoglobin A1c Lactic Acid Calcium Phosphorus Magnesium Ferritin AST ALT Alkaline Phosphatase Lactate Dehydrogenase Troponin T C-Reactive Protein Total Protein Albumin LDL Cholesterol Direct Urine Creatinine Urine Total Protein Salicylates Acetaminophen Crossmatch 10/30/21 10/30/21 10/30/21 23:00 Unknown Unknown WBC RBC Hgb Hct MCH RDW Plt Count Lymph % (Auto) Lymph # (Auto) [place] # (Auto) Seg Neutrophils % Seg Neuts % (Manual) Lymphocytes % (Manual) Nucleated RBC % Seg Neutrophils # Seg Neutrophils # Man Monocytes # (Manual) PT INR APTT D-Dimer > 34541 H Heparin Anti-Xa Level 0.82 H ABG pH ABG pO2 ABG HCO3 ABG O2 Saturation ABG Base Excess ABG Hemoglobin Oxyhemoglobin Sodium Potassium Chloride Carbon Dioxide BUN Creatinine Glucose POC Glucose Hemoglobin A1c Lactic Acid Calcium Phosphorus Magnesium Ferritin 208.4 H AST ALT Alkaline Phosphatase Lactate Dehydrogenase Troponin T C-Reactive Protein Total Protein Albumin LDL Cholesterol Direct Urine Creatinine Urine Total Protein Salicylates Acetaminophen Crossmatch 10/30/21 10/31/21 10/31/21 Unknown 04:30 04:30 WBC 14.4 H RBC Hgb Hct MCH 26 L RDW Plt Count Lymph % (Auto) Lymph # (Auto) [place] # (Auto) Seg Neutrophils % Seg Neuts % (Manual) Lymphocytes % (Manual) Nucleated RBC % Seg Neutrophils # Seg Neutrophils # Man Monocytes # (Manual) PT INR APTT D-Dimer Heparin Anti-Xa Level ABG pH ABG pO2 ABG HCO3 ABG O2 Saturation ABG Base Excess ABG Hemoglobin Oxyhemoglobin Sodium Potassium 3.5 L Chloride 107.5 H Carbon Dioxide 20 L BUN 28 H Creatinine 1.7 H Glucose 113 H POC Glucose Hemoglobin A1c Lactic Acid Calcium 7.9 L Phosphorus Magnesium Ferritin AST ALT Alkaline Phosphatase Lactate Dehydrogenase 469 H Troponin T C-Reactive Protein 13.40 H Total Protein Albumin LDL Cholesterol Direct Urine Creatinine Urine Total Protein Salicylates Acetaminophen Crossmatch 10/31/21 10/31/21 10/31/21 04:30 05:11 15:30 WBC RBC Hgb Hct MCH RDW Plt Count Lymph % (Auto) Lymph # (Auto) [place] # (Auto) Seg Neutrophils % Seg Neuts % (Manual) Lymphocytes % (Manual) Nucleated RBC % Seg Neutrophils # Seg Neutrophils # Man Monocytes # (Manual) PT INR APTT D-Dimer Heparin Anti-Xa Level ABG pH 7.222 L ABG pO2 61.5 L ABG HCO3 ABG O2 Saturation 86.2 L ABG Base Excess -6.3 L ABG Hemoglobin 11.2 L Oxyhemoglobin 84.5 L Sodium Potassium Chloride Carbon Dioxide BUN Creatinine Glucose POC Glucose 106 H Hemoglobin A1c 6.7 H Lactic Acid Calcium Phosphorus Magnesium Ferritin AST ALT Alkaline Phosphatase Lactate Dehydrogenase Troponin T C-Reactive Protein Total Protein Albumin LDL Cholesterol Direct Urine Creatinine Urine Total Protein Salicylates Acetaminophen Crossmatch 10/31/21 10/31/21 10/31/21 16:07 16:35 17:45 WBC RBC Hgb Hct MCH RDW Plt Count Lymph % (Auto) Lymph # (Auto) [place] # (Auto) Seg Neutrophils % Seg Neuts % (Manual) Lymphocytes % (Manual) Nucleated RBC % Seg Neutrophils # Seg Neutrophils # Man Monocytes # (Manual) PT INR APTT D-Dimer Heparin Anti-Xa Level ABG pH 7.267 L ABG pO2 58.3 L ABG HCO3 ABG O2 Saturation 88.3 L ABG Base Excess -5.9 L ABG Hemoglobin 10.1 L Oxyhemoglobin 86.5 L Sodium Potassium Chloride Carbon Dioxide BUN Creatinine Glucose POC Glucose 115 H Hemoglobin A1c Lactic Acid Calcium Phosphorus Magnesium Ferritin AST ALT Alkaline Phosphatase Lactate Dehydrogenase Troponin T C-Reactive Protein Total Protein Albumin LDL Cholesterol Direct Urine Creatinine 383.6 H Urine Total Protein Salicylates Acetaminophen Crossmatch 11/01/21 11/01/21 11/01/21 00:06 05:08 06:00 WBC 12.6 H RBC 3.43 L Hgb 8.9 L Hct 28.7 L MCH 26 L RDW 15.7 H Plt Count 130 L Lymph % (Auto) Lymph # (Auto) [place] # (Auto) Seg Neutrophils % Seg Neuts % (Manual) Lymphocytes % (Manual) Nucleated RBC % Seg Neutrophils # Seg Neutrophils # Man Monocytes # (Manual) PT INR APTT D-Dimer Heparin Anti-Xa Level ABG pH ABG pO2 ABG HCO3 ABG O2 Saturation ABG Base Excess ABG Hemoglobin Oxyhemoglobin Sodium Potassium Chloride Carbon Dioxide BUN Creatinine Glucose POC Glucose 114 H 120 H Hemoglobin A1c Lactic Acid Calcium Phosphorus Magnesium Ferritin AST ALT Alkaline Phosphatase Lactate Dehydrogenase Troponin T C-Reactive Protein Total Protein Albumin LDL Cholesterol Direct Urine Creatinine Urine Total Protein Salicylates Acetaminophen Crossmatch 11/01/21 11/01/21 11/01/21 06:00 11:43 14:00 WBC RBC Hgb Hct MCH RDW Plt Count Lymph % (Auto) Lymph # (Auto) [place] # (Auto) Seg Neutrophils % Seg Neuts % (Manual) Lymphocytes % (Manual) Nucleated RBC % Seg Neutrophils # Seg Neutrophils # Man Monocytes # (Manual) PT INR APTT D-Dimer Heparin Anti-Xa Level ABG pH 7.349 L ABG pO2 75.6 L ABG HCO3 ABG O2 Saturation ABG Base Excess -3.9 L ABG Hemoglobin 9.8 L Oxyhemoglobin 93.5 L Sodium Potassium Chloride 114.1 H Carbon Dioxide 20 L BUN 33 H Creatinine Glucose 131 H POC Glucose 151 H Hemoglobin A1c Lactic Acid Calcium 7.7 L Phosphorus Magnesium Ferritin AST 79 H ALT 259 H Alkaline Phosphatase Lactate Dehydrogenase Troponin T C-Reactive Protein Total Protein 5.5 L Albumin 2.7 L LDL Cholesterol Direct Urine Creatinine Urine Total Protein Salicylates Acetaminophen Crossmatch 11/01/21 11/01/21 11/02/21 16:45 22:55 05:12 WBC RBC Hgb Hct MCH RDW Plt Count Lymph % (Auto) Lymph # (Auto) [place] # (Auto) Seg Neutrophils % Seg Neuts % (Manual) Lymphocytes % (Manual) Nucleated RBC % Seg Neutrophils # Seg Neutrophils # Man Monocytes # (Manual) PT INR APTT D-Dimer Heparin Anti-Xa Level ABG pH ABG pO2 ABG HCO3 ABG O2 Saturation ABG Base Excess ABG Hemoglobin Oxyhemoglobin Sodium Potassium Chloride Carbon Dioxide BUN Creatinine Glucose POC Glucose 119 H 129 H 140 H Hemoglobin A1c Lactic Acid Calcium Phosphorus Magnesium Ferritin AST ALT Alkaline Phosphatase Lactate Dehydrogenase Troponin T C-Reactive Protein Total Protein Albumin LDL Cholesterol Direct Urine Creatinine Urine Total Protein Salicylates Acetaminophen Crossmatch 11/02/21 11/02/21 11/02/21 05:35 05:35 09:35 WBC 13.5 H RBC 3.60 L Hgb 9.7 L Hct MCH 27 L RDW 15.7 H Plt Count Lymph % (Auto) Lymph # (Auto) [place] # (Auto) Seg Neutrophils % Seg Neuts % (Manual) Lymphocytes % (Manual) Nucleated RBC % Seg Neutrophils # Seg Neutrophils # Man Monocytes # (Manual) PT INR APTT D-Dimer Heparin Anti-Xa Level ABG pH 7.208 L ABG pO2 75.9 L ABG HCO3 ABG O2 Saturation 93.6 L ABG Base Excess -4.3 L ABG Hemoglobin 9.1 L Oxyhemoglobin 91.6 L Sodium Potassium 5.2 H D Chloride 112.6 H Carbon Dioxide BUN 32 H Creatinine Glucose 152 H POC Glucose Hemoglobin A1c Lactic Acid Calcium 8.2 L Phosphorus Magnesium 2.70 H Ferritin AST ALT Alkaline Phosphatase Lactate Dehydrogenase Troponin T C-Reactive Protein Total Protein Albumin LDL Cholesterol Direct Urine Creatinine Urine Total Protein Salicylates Acetaminophen Crossmatch 11/02/21 11/02/21 11/02/21 11:44 17:13 23:43 WBC RBC Hgb Hct MCH RDW Plt Count Lymph % (Auto) Lymph # (Auto) [place] # (Auto) Seg Neutrophils % Seg Neuts % (Manual) Lymphocytes % (Manual) Nucleated RBC % Seg Neutrophils # Seg Neutrophils # Man Monocytes # (Manual) PT INR APTT D-Dimer Heparin Anti-Xa Level ABG pH ABG pO2 ABG HCO3 ABG O2 Saturation ABG Base Excess ABG Hemoglobin Oxyhemoglobin Sodium Potassium Chloride Carbon Dioxide BUN Creatinine Glucose POC Glucose 173 H 148 H 137 H Hemoglobin A1c Lactic Acid Calcium Phosphorus Magnesium Ferritin AST ALT Alkaline Phosphatase Lactate Dehydrogenase Troponin T C-Reactive Protein Total Protein Albumin LDL Cholesterol Direct Urine Creatinine Urine Total Protein Salicylates Acetaminophen Crossmatch 11/03/21 11/03/21 11/03/21 04:59 06:00 06:00 WBC RBC 3.43 L Hgb 9.1 L Hct 29.0 L MCH 26 L RDW 16.4 H Plt Count Lymph % (Auto) Lymph # (Auto) [place] # (Auto) Seg Neutrophils % Seg Neuts % (Manual) Lymphocytes % (Manual) Nucleated RBC % Seg Neutrophils # Seg Neutrophils # Man Monocytes # (Manual) PT INR APTT D-Dimer Heparin Anti-Xa Level 0.17 L ABG pH ABG pO2 ABG HCO3 ABG O2 Saturation ABG Base Excess ABG Hemoglobin Oxyhemoglobin Sodium Potassium Chloride Carbon Dioxide BUN Creatinine Glucose POC Glucose 167 H Hemoglobin A1c Lactic Acid Calcium Phosphorus Magnesium Ferritin AST ALT Alkaline Phosphatase Lactate Dehydrogenase Troponin T C-Reactive Protein Total Protein Albumin LDL Cholesterol Direct Urine Creatinine Urine Total Protein Salicylates Acetaminophen Crossmatch 11/03/21 11/03/21 11/03/21 06:00 09:20 11:58 WBC RBC Hgb Hct MCH RDW Plt Count Lymph % (Auto) Lymph # (Auto) [place] # (Auto) Seg Neutrophils % Seg Neuts % (Manual) Lymphocytes % (Manual) Nucleated RBC % Seg Neutrophils # Seg Neutrophils # Man Monocytes # (Manual) PT INR APTT D-Dimer Heparin Anti-Xa Level ABG pH 7.274 L ABG pO2 75.6 L ABG HCO3 ABG O2 Saturation 94.9 L ABG Base Excess -2.5 L ABG Hemoglobin 9.3 L Oxyhemoglobin 92.9 L Sodium 149 H Potassium Chloride 117.5 H Carbon Dioxide BUN 32 H Creatinine Glucose 173 H POC Glucose 192 H Hemoglobin A1c Lactic Acid Calcium 8.1 L Phosphorus Magnesium Ferritin AST ALT Alkaline Phosphatase Lactate Dehydrogenase Troponin T C-Reactive Protein Total Protein Albumin LDL Cholesterol Direct Urine Creatinine Urine Total Protein Salicylates Acetaminophen Crossmatch 11/03/21 11/03/21 11/04/21 18:22 Unknown 00:09 WBC RBC Hgb Hct MCH RDW Plt Count Lymph % (Auto) Lymph # (Auto) [place] # (Auto) Seg Neutrophils % Seg Neuts % (Manual) Lymphocytes % (Manual) Nucleated RBC % Seg Neutrophils # Seg Neutrophils # Man Monocytes # (Manual) PT INR APTT D-Dimer Heparin Anti-Xa Level 0.29 L ABG pH ABG pO2 ABG HCO3 ABG O2 Saturation ABG Base Excess ABG Hemoglobin Oxyhemoglobin Sodium Potassium Chloride Carbon Dioxide BUN Creatinine Glucose POC Glucose 178 H 221 H Hemoglobin A1c Lactic Acid Calcium Phosphorus Magnesium Ferritin AST ALT Alkaline Phosphatase Lactate Dehydrogenase Troponin T C-Reactive Protein Total Protein Albumin LDL Cholesterol Direct Urine Creatinine Urine Total Protein Salicylates Acetaminophen Crossmatch 11/04/21 11/04/21 11/04/21 05:09 09:40 09:40 WBC 16.8 H RBC Hgb Hct MCH 27 L RDW 16.5 H Plt Count Lymph % (Auto) Lymph # (Auto) [place] # (Auto) Seg Neutrophils % Seg Neuts % (Manual) Lymphocytes % (Manual) Nucleated RBC % Seg Neutrophils # Seg Neutrophils # Man Monocytes # (Manual) PT INR APTT D-Dimer Heparin Anti-Xa Level ABG pH ABG pO2 ABG HCO3 ABG O2 Saturation ABG Base Excess ABG Hemoglobin Oxyhemoglobin Sodium Potassium 5.9 H Chloride 108.5 H Carbon Dioxide BUN 54 H Creatinine 1.8 H Glucose 198 H POC Glucose 182 H Hemoglobin A1c Lactic Acid Calcium Phosphorus Magnesium 3.00 H Ferritin AST ALT Alkaline Phosphatase Lactate Dehydrogenase Troponin T C-Reactive Protein Total Protein Albumin LDL Cholesterol Direct Urine Creatinine Urine Total Protein Salicylates Acetaminophen Crossmatch 11/04/21 11/04/21 11/04/21 12:13 13:34 14:05 WBC RBC Hgb Hct MCH RDW Plt Count Lymph % (Auto) Lymph # (Auto) [place] # (Auto) Seg Neutrophils % Seg Neuts % (Manual) Lymphocytes % (Manual) Nucleated RBC % Seg Neutrophils # Seg Neutrophils # Man Monocytes # (Manual) PT INR APTT D-Dimer Heparin Anti-Xa Level ABG pH 7.223 L ABG pO2 71.3 L ABG HCO3 ABG O2 Saturation 92.8 L ABG Base Excess ABG Hemoglobin 8.2 L Oxyhemoglobin 91.0 L Sodium Potassium Chloride Carbon Dioxide BUN Creatinine Glucose POC Glucose 184 H Hemoglobin A1c Lactic Acid Calcium Phosphorus Magnesium Ferritin AST ALT Alkaline Phosphatase Lactate Dehydrogenase Troponin T C-Reactive Protein Total Protein Albumin LDL Cholesterol Direct Urine Creatinine 184.6 H Urine Total Protein Salicylates Acetaminophen Crossmatch 11/04/21 11/04/21 11/05/21 18:02 Unknown 00:07 WBC RBC Hgb Hct MCH RDW Plt Count Lymph % (Auto) Lymph # (Auto) [place] # (Auto) Seg Neutrophils % Seg Neuts % (Manual) Lymphocytes % (Manual) Nucleated RBC % Seg Neutrophils # Seg Neutrophils # Man Monocytes # (Manual) PT INR APTT D-Dimer Heparin Anti-Xa Level ABG pH ABG pO2 ABG HCO3 ABG O2 Saturation ABG Base Excess ABG Hemoglobin Oxyhemoglobin Sodium Potassium Chloride Carbon Dioxide BUN Creatinine Glucose POC Glucose 262 H 259 H Hemoglobin A1c Lactic Acid Calcium Phosphorus Magnesium Ferritin AST ALT Alkaline Phosphatase Lactate Dehydrogenase Troponin T C-Reactive Protein Total Protein Albumin LDL Cholesterol Direct Urine Creatinine 190.9 H Urine Total Protein 172 H Salicylates Acetaminophen Crossmatch 11/05/21 11/05/21 11/05/21 04:20 04:20 05:30 WBC 17.9 H RBC 3.64 L Hgb 9.7 L Hct MCH 27 L RDW 16.4 H Plt Count Lymph % (Auto) Lymph # (Auto) [place] # (Auto) Seg Neutrophils % Seg Neuts % (Manual) Lymphocytes % (Manual) Nucleated RBC % Seg Neutrophils # Seg Neutrophils # Man Monocytes # (Manual) PT INR APTT D-Dimer Heparin Anti-Xa Level ABG pH ABG pO2 ABG HCO3 ABG O2 Saturation ABG Base Excess ABG Hemoglobin Oxyhemoglobin Sodium Potassium 5.6 H Chloride 108.4 H Carbon Dioxide BUN 71 H Creatinine 1.9 H Glucose 270 H POC Glucose 283 H Hemoglobin A1c Lactic Acid Calcium Phosphorus Magnesium Ferritin AST ALT Alkaline Phosphatase Lactate Dehydrogenase Troponin T C-Reactive Protein Total Protein Albumin LDL Cholesterol Direct Urine Creatinine Urine Total Protein Salicylates Acetaminophen Crossmatch 11/05/21 11/05/21 11/05/21 10:05 12:10 15:29 WBC RBC Hgb Hct MCH RDW Plt Count Lymph % (Auto) Lymph # (Auto) [place] # (Auto) Seg Neutrophils % Seg Neuts % (Manual) Lymphocytes % (Manual) Nucleated RBC % Seg Neutrophils # Seg Neutrophils # Man Monocytes # (Manual) PT INR APTT D-Dimer Heparin Anti-Xa Level ABG pH 7.248 L ABG pO2 73.7 L ABG HCO3 26.2 H ABG O2 Saturation 93.1 L ABG Base Excess ABG Hemoglobin 8.9 L Oxyhemoglobin 91.4 L Sodium Potassium Chloride Carbon Dioxide BUN Creatinine Glucose POC Glucose 225 H 199 H Hemoglobin A1c Lactic Acid Calcium Phosphorus Magnesium Ferritin AST ALT Alkaline Phosphatase Lactate Dehydrogenase Troponin T C-Reactive Protein Total Protein Albumin LDL Cholesterol Direct Urine Creatinine Urine Total Protein Salicylates Acetaminophen Crossmatch 11/05/21 11/05/21 11/05/21 15:51 17:32 17:40 WBC RBC Hgb Hct MCH RDW Plt Count Lymph % (Auto) Lymph # (Auto) [place] # (Auto) Seg Neutrophils % Seg Neuts % (Manual) Lymphocytes % (Manual) Nucleated RBC % Seg Neutrophils # Seg Neutrophils # Man Monocytes # (Manual) PT INR APTT D-Dimer Heparin Anti-Xa Level ABG pH ABG pO2 ABG HCO3 ABG O2 Saturation ABG Base Excess ABG Hemoglobin Oxyhemoglobin Sodium Potassium 5.2 H Chloride 107.8 H Carbon Dioxide BUN 79 H Creatinine 1.9 H Glucose 204 H POC Glucose 278 H 197 H Hemoglobin A1c Lactic Acid Calcium Phosphorus Magnesium Ferritin AST ALT Alkaline Phosphatase Lactate Dehydrogenase Troponin T C-Reactive Protein Total Protein Albumin LDL Cholesterol Direct Urine Creatinine Urine Total Protein Salicylates Acetaminophen Crossmatch 11/05/21 11/05/21 11/05/21 21:25 22:22 23:43 WBC RBC Hgb Hct MCH RDW Plt Count Lymph % (Auto) Lymph # (Auto) [place] # (Auto) Seg Neutrophils % Seg Neuts % (Manual) Lymphocytes % (Manual) Nucleated RBC % Seg Neutrophils # Seg Neutrophils # Man Monocytes # (Manual) PT INR APTT D-Dimer Heparin Anti-Xa Level ABG pH ABG pO2 ABG HCO3 ABG O2 Saturation ABG Base Excess ABG Hemoglobin Oxyhemoglobin Sodium Potassium 5.3 H Chloride 109.2 H Carbon Dioxide BUN 81 H Creatinine 2.0 H Glucose 195 H POC Glucose 180 H 203 H Hemoglobin A1c Lactic Acid Calcium Phosphorus Magnesium Ferritin AST ALT Alkaline Phosphatase Lactate Dehydrogenase Troponin T C-Reactive Protein Total Protein Albumin LDL Cholesterol Direct Urine Creatinine Urine Total Protein Salicylates Acetaminophen Crossmatch 11/05/21 11/06/21 11/06/21 Unknown 02:35 05:09 WBC RBC Hgb Hct MCH RDW Plt Count Lymph % (Auto) Lymph # (Auto) [place] # (Auto) Seg Neutrophils % Seg Neuts % (Manual) Lymphocytes % (Manual) Nucleated RBC % Seg Neutrophils # Seg Neutrophils # Man Monocytes # (Manual) PT INR APTT D-Dimer Heparin Anti-Xa Level ABG pH ABG pO2 ABG HCO3 ABG O2 Saturation ABG Base Excess ABG Hemoglobin Oxyhemoglobin Sodium 146 H Potassium 6.0 H Chloride 108.1 H 107.1 H Carbon Dioxide 21 L BUN 80 H 84 H Creatinine 2.0 H 2.0 H Glucose 238 H 235 H POC Glucose 215 H Hemoglobin A1c Lactic Acid Calcium Phosphorus Magnesium 2.80 H Ferritin AST ALT 77 H Alkaline Phosphatase Lactate Dehydrogenase Troponin T C-Reactive Protein Total Protein Albumin 3.0 L LDL Cholesterol Direct Urine Creatinine Urine Total Protein Salicylates Acetaminophen Crossmatch 11/06/21 11/06/21 11/06/21 05:40 08:07 08:07 WBC RBC Hgb Hct MCH RDW Plt Count Lymph % (Auto) Lymph # (Auto) [place] # (Auto) Seg Neutrophils % Seg Neuts % (Manual) Lymphocytes % (Manual) Nucleated RBC % Seg Neutrophils # Seg Neutrophils # Man Monocytes # (Manual) PT INR APTT D-Dimer Heparin Anti-Xa Level 1.24 H ABG pH 7.311 L ABG pO2 72.8 L ABG HCO3 29.7 H ABG O2 Saturation 94.1 L ABG Base Excess ABG Hemoglobin 11.4 L Oxyhemoglobin 92.3 L Sodium Potassium 5.2 H Chloride Carbon Dioxide BUN 85 H Creatinine 2.3 H Glucose 236 H POC Glucose Hemoglobin A1c Lactic Acid Calcium Phosphorus Magnesium Ferritin AST ALT Alkaline Phosphatase Lactate Dehydrogenase Troponin T C-Reactive Protein Total Protein Albumin LDL Cholesterol Direct Urine Creatinine Urine Total Protein Salicylates Acetaminophen Crossmatch 11/06/21 11/06/21 11/06/21 12:14 12:57 14:28 WBC RBC Hgb Hct MCH RDW Plt Count Lymph % (Auto) Lymph # (Auto) [place] # (Auto) Seg Neutrophils % Seg Neuts % (Manual) Lymphocytes % (Manual) Nucleated RBC % Seg Neutrophils # Seg Neutrophils # Man Monocytes # (Manual) PT INR APTT D-Dimer Heparin Anti-Xa Level ABG pH 7.282 L ABG pO2 72.6 L ABG HCO3 30.8 H ABG O2 Saturation 93.7 L ABG Base Excess 3.2 H ABG Hemoglobin 8.6 L Oxyhemoglobin 91.8 L Sodium Potassium Chloride Carbon Dioxide BUN 91 H Creatinine 2.6 H Glucose 259 H POC Glucose 225 H Hemoglobin A1c Lactic Acid Calcium Phosphorus Magnesium Ferritin AST ALT Alkaline Phosphatase Lactate Dehydrogenase Troponin T C-Reactive Protein Total Protein Albumin LDL Cholesterol Direct Urine Creatinine Urine Total Protein Salicylates Acetaminophen Crossmatch 11/06/21 11/06/21 11/06/21 17:28 19:20 21:30 WBC RBC Hgb Hct MCH RDW Plt Count Lymph % (Auto) Lymph # (Auto) [place] # (Auto) Seg Neutrophils % Seg Neuts % (Manual) Lymphocytes % (Manual) Nucleated RBC % Seg Neutrophils # Seg Neutrophils # Man Monocytes # (Manual) PT INR APTT D-Dimer Heparin Anti-Xa Level 0.73 H ABG pH ABG pO2 ABG HCO3 ABG O2 Saturation ABG Base Excess ABG Hemoglobin Oxyhemoglobin Sodium Potassium Chloride Carbon Dioxide BUN 95 H Creatinine 2.9 H Glucose 233 H POC Glucose 206 H Hemoglobin A1c Lactic Acid Calcium Phosphorus Magnesium Ferritin AST ALT Alkaline Phosphatase Lactate Dehydrogenase Troponin T C-Reactive Protein Total Protein Albumin LDL Cholesterol Direct Urine Creatinine Urine Total Protein Salicylates Acetaminophen Crossmatch 11/06/21 11/07/21 11/07/21 22:56 05:06 06:30 WBC RBC Hgb Hct MCH RDW Plt Count Lymph % (Auto) Lymph # (Auto) [place] # (Auto) Seg Neutrophils % Seg Neuts % (Manual) Lymphocytes % (Manual) Nucleated RBC % Seg Neutrophils # Seg Neutrophils # Man Monocytes # (Manual) PT INR APTT D-Dimer Heparin Anti-Xa Level ABG pH ABG pO2 ABG HCO3 ABG O2 Saturation ABG Base Excess ABG Hemoglobin Oxyhemoglobin Sodium 146 H Potassium Chloride Carbon Dioxide BUN 98 H Creatinine 2.8 H Glucose 202 H POC Glucose 215 H 172 H Hemoglobin A1c Lactic Acid Calcium Phosphorus 4.90 H D Magnesium 2.90 H Ferritin AST ALT Alkaline Phosphatase Lactate Dehydrogenase Troponin T C-Reactive Protein Total Protein Albumin LDL Cholesterol Direct Urine Creatinine Urine Total Protein Salicylates Acetaminophen Crossmatch 11/07/21 11/07/21 11/07/21 06:30 11:26 12:15 WBC 16.0 H RBC 3.06 L Hgb 8.2 L Hct 26.1 L MCH 27 L RDW 16.2 H Plt Count Lymph % (Auto) Lymph # (Auto) [place] # (Auto) Seg Neutrophils % Seg Neuts % (Manual) 77.0 H Lymphocytes % (Manual) 11.0 L Nucleated RBC % 2.0 H Seg Neutrophils # Seg Neutrophils # Man 12.3 H Monocytes # (Manual) PT INR APTT D-Dimer Heparin Anti-Xa Level ABG pH 7.298 L ABG pO2 73.0 L ABG HCO3 33.3 H ABG O2 Saturation 94.4 L ABG Base Excess 5.8 H ABG Hemoglobin 8.2 L Oxyhemoglobin 92.7 L Sodium Potassium Chloride Carbon Dioxide BUN Creatinine Glucose POC Glucose 179 H Hemoglobin A1c Lactic Acid Calcium Phosphorus Magnesium Ferritin AST ALT Alkaline Phosphatase Lactate Dehydrogenase Troponin T C-Reactive Protein Total Protein Albumin LDL Cholesterol Direct Urine Creatinine Urine Total Protein Salicylates Acetaminophen Crossmatch 11/07/21 11/07/21 11/07/21 17:57 22:16 23:49 WBC RBC Hgb Hct MCH RDW Plt Count Lymph % (Auto) Lymph # (Auto) [place] # (Auto) Seg Neutrophils % Seg Neuts % (Manual) Lymphocytes % (Manual) Nucleated RBC % Seg Neutrophils # Seg Neutrophils # Man Monocytes # (Manual) PT INR APTT D-Dimer Heparin Anti-Xa Level ABG pH ABG pO2 ABG HCO3 ABG O2 Saturation ABG Base Excess ABG Hemoglobin Oxyhemoglobin Sodium Potassium Chloride Carbon Dioxide BUN Creatinine Glucose POC Glucose 166 H 223 H 190 H Hemoglobin A1c Lactic Acid Calcium Phosphorus Magnesium Ferritin AST ALT Alkaline Phosphatase Lactate Dehydrogenase Troponin T C-Reactive Protein Total Protein Albumin LDL Cholesterol Direct Urine Creatinine Urine Total Protein Salicylates Acetaminophen Crossmatch 11/08/21 11/08/21 11/08/21 04:20 04:20 06:16 WBC 22.1 H RBC 3.01 L Hgb 8.1 L Hct 25.6 L MCH 27 L RDW 15.4 H Plt Count Lymph % (Auto) Lymph # (Auto) [place] # (Auto) Seg Neutrophils % Seg Neuts % (Manual) Lymphocytes % (Manual) Nucleated RBC % Seg Neutrophils # Seg Neutrophils # Man Monocytes # (Manual) PT INR APTT D-Dimer Heparin Anti-Xa Level ABG pH ABG pO2 ABG HCO3 ABG O2 Saturation ABG Base Excess ABG Hemoglobin Oxyhemoglobin Sodium 151 H Potassium 3.1 L D Chloride 107.3 H Carbon Dioxide 31 H BUN 82 H Creatinine 1.8 H Glucose 232 H POC Glucose 198 H Hemoglobin A1c Lactic Acid Calcium 8.1 L Phosphorus Magnesium Ferritin AST ALT Alkaline Phosphatase Lactate Dehydrogenase Troponin T C-Reactive Protein Total Protein Albumin LDL Cholesterol Direct Urine Creatinine Urine Total Protein Salicylates Acetaminophen Crossmatch 11/08/21 11/08/21 11/08/21 11:38 12:00 18:29 WBC RBC Hgb Hct MCH RDW Plt Count Lymph % (Auto) Lymph # (Auto) [place] # (Auto) Seg Neutrophils % Seg Neuts % (Manual) Lymphocytes % (Manual) Nucleated RBC % Seg Neutrophils # Seg Neutrophils # Man Monocytes # (Manual) PT INR APTT D-Dimer Heparin Anti-Xa Level ABG pH ABG pO2 ABG HCO3 ABG O2 Saturation ABG Base Excess ABG Hemoglobin Oxyhemoglobin Sodium Potassium 3.0 L Chloride Carbon Dioxide BUN Creatinine Glucose POC Glucose 190 H 211 H Hemoglobin A1c Lactic Acid Calcium Phosphorus Magnesium Ferritin AST ALT Alkaline Phosphatase Lactate Dehydrogenase Troponin T C-Reactive Protein Total Protein Albumin LDL Cholesterol Direct Urine Creatinine Urine Total Protein Salicylates Acetaminophen Crossmatch 11/08/21 11/08/21 11/09/21 21:34 21:40 00:36 WBC RBC Hgb Hct MCH RDW Plt Count Lymph % (Auto) Lymph # (Auto) [place] # (Auto) Seg Neutrophils % Seg Neuts % (Manual) Lymphocytes % (Manual) Nucleated RBC % Seg Neutrophils # Seg Neutrophils # Man Monocytes # (Manual) PT INR APTT D-Dimer Heparin Anti-Xa Level ABG pH ABG pO2 ABG HCO3 ABG O2 Saturation ABG Base Excess ABG Hemoglobin Oxyhemoglobin Sodium 148 H Potassium 2.8 L* Chloride Carbon Dioxide 31 H BUN 68 H Creatinine 1.5 H Glucose 191 H POC Glucose 194 H 140 H Hemoglobin A1c Lactic Acid Calcium 8.2 L Phosphorus Magnesium Ferritin AST ALT Alkaline Phosphatase Lactate Dehydrogenase Troponin T C-Reactive Protein Total Protein Albumin LDL Cholesterol Direct Urine Creatinine Urine Total Protein Salicylates Acetaminophen Crossmatch 11/09/21 11/09/21 11/09/21 04:51 04:51 04:51 WBC 27.6 H RBC 3.18 L Hgb 8.4 L Hct 26.6 L MCH 27 L RDW 15.3 H Plt Count Lymph % (Auto) Lymph # (Auto) [place] # (Auto) Seg Neutrophils % Seg Neuts % (Manual) Lymphocytes % (Manual) Nucleated RBC % Seg Neutrophils # Seg Neutrophils # Man Monocytes # (Manual) PT INR APTT D-Dimer Heparin Anti-Xa Level 0.18 L ABG pH ABG pO2 ABG HCO3 ABG O2 Saturation ABG Base Excess ABG Hemoglobin Oxyhemoglobin Sodium 148 H Potassium 2.7 L* Chloride Carbon Dioxide BUN 59 H Creatinine 1.4 H Glucose 143 H POC Glucose Hemoglobin A1c Lactic Acid Calcium 8.3 L Phosphorus Magnesium Ferritin AST ALT Alkaline Phosphatase Lactate Dehydrogenase Troponin T C-Reactive Protein Total Protein Albumin LDL Cholesterol Direct Urine Creatinine Urine Total Protein Salicylates Acetaminophen Crossmatch 11/09/21 11/09/21 11/09/21 05:52 08:45 11:00 WBC RBC Hgb Hct MCH RDW Plt Count Lymph % (Auto) Lymph # (Auto) [place] # (Auto) Seg Neutrophils % Seg Neuts % (Manual) Lymphocytes % (Manual) Nucleated RBC % Seg Neutrophils # Seg Neutrophils # Man Monocytes # (Manual) PT INR APTT D-Dimer Heparin Anti-Xa Level ABG pH ABG pO2 73.2 L ABG HCO3 33.8 H ABG O2 Saturation ABG Base Excess 8.7 H ABG Hemoglobin 8.5 L Oxyhemoglobin 94.1 L Sodium Potassium Chloride Carbon Dioxide BUN Creatinine Glucose POC Glucose 166 H 136 H Hemoglobin A1c Lactic Acid Calcium Phosphorus Magnesium Ferritin AST ALT Alkaline Phosphatase Lactate Dehydrogenase Troponin T C-Reactive Protein Total Protein Albumin LDL Cholesterol Direct Urine Creatinine Urine Total Protein Salicylates Acetaminophen Crossmatch 11/09/21 11/09/21 11/09/21 15:48 16:10 20:31 WBC RBC Hgb Hct MCH RDW Plt Count Lymph % (Auto) Lymph # (Auto) [place] # (Auto) Seg Neutrophils % Seg Neuts % (Manual) Lymphocytes % (Manual) Nucleated RBC % Seg Neutrophils # Seg Neutrophils # Man Monocytes # (Manual) PT INR APTT D-Dimer Heparin Anti-Xa Level ABG pH ABG pO2 ABG HCO3 ABG O2 Saturation ABG Base Excess ABG Hemoglobin Oxyhemoglobin Sodium Potassium 2.8 L* Chloride Carbon Dioxide 31 H BUN 53 H Creatinine 1.3 H Glucose 208 H POC Glucose 203 H 166 H Hemoglobin A1c Lactic Acid Calcium 7.9 L Phosphorus Magnesium Ferritin AST ALT Alkaline Phosphatase Lactate Dehydrogenase Troponin T C-Reactive Protein Total Protein Albumin LDL Cholesterol Direct Urine Creatinine Urine Total Protein Salicylates Acetaminophen Crossmatch 11/09/21 11/09/21 11/09/21 21:30 23:16 Unknown WBC RBC Hgb Hct MCH RDW Plt Count Lymph % (Auto) Lymph # (Auto) [place] # (Auto) Seg Neutrophils % Seg Neuts % (Manual) Lymphocytes % (Manual) Nucleated RBC % Seg Neutrophils # Seg Neutrophils # Man Monocytes # (Manual) PT INR APTT D-Dimer Heparin Anti-Xa Level 0.24 L ABG pH ABG pO2 ABG HCO3 ABG O2 Saturation ABG Base Excess ABG Hemoglobin Oxyhemoglobin Sodium Potassium Chloride Carbon Dioxide BUN 52 H Creatinine 1.4 H Glucose 185 H POC Glucose 172 H Hemoglobin A1c Lactic Acid Calcium 7.8 L Phosphorus Magnesium Ferritin AST ALT Alkaline Phosphatase Lactate Dehydrogenase Troponin T C-Reactive Protein Total Protein Albumin LDL Cholesterol Direct Urine Creatinine Urine Total Protein Salicylates Acetaminophen Crossmatch 11/10/21 11/10/21 11/10/21 02:00 04:17 04:17 WBC 24.5 H RBC 2.75 L Hgb 7.5 L Hct 22.9 L MCH 27 L RDW Plt Count Lymph % (Auto) Lymph # (Auto) [place] # (Auto) Seg Neutrophils % Seg Neuts % (Manual) Lymphocytes % (Manual) Nucleated RBC % Seg Neutrophils # Seg Neutrophils # Man Monocytes # (Manual) PT INR APTT D-Dimer Heparin Anti-Xa Level 0.26 L ABG pH ABG pO2 ABG HCO3 ABG O2 Saturation ABG Base Excess ABG Hemoglobin Oxyhemoglobin Sodium Potassium 2.9 L* Chloride Carbon Dioxide 35 H BUN 48 H Creatinine Glucose 212 H POC Glucose Hemoglobin A1c Lactic Acid Calcium 8.1 L Phosphorus Magnesium Ferritin AST ALT Alkaline Phosphatase Lactate Dehydrogenase Troponin T C-Reactive Protein Total Protein Albumin LDL Cholesterol Direct Urine Creatinine Urine Total Protein Salicylates Acetaminophen Crossmatch 11/10/21 11/10/21 11/10/21 05:01 08:39 11:03 WBC RBC Hgb Hct MCH RDW Plt Count Lymph % (Auto) Lymph # (Auto) [place] # (Auto) Seg Neutrophils % Seg Neuts % (Manual) Lymphocytes % (Manual) Nucleated RBC % Seg Neutrophils # Seg Neutrophils # Man Monocytes # (Manual) PT INR APTT D-Dimer Heparin Anti-Xa Level 0.12 L ABG pH ABG pO2 ABG HCO3 ABG O2 Saturation ABG Base Excess ABG Hemoglobin Oxyhemoglobin Sodium Potassium Chloride Carbon Dioxide BUN Creatinine Glucose POC Glucose 203 H 152 H Hemoglobin A1c Lactic Acid Calcium Phosphorus Magnesium Ferritin AST ALT Alkaline Phosphatase Lactate Dehydrogenase Troponin T C-Reactive Protein Total Protein Albumin LDL Cholesterol Direct Urine Creatinine Urine Total Protein Salicylates Acetaminophen Crossmatch 11/10/21 11/10/21 11/10/21 12:45 15:43 21:05 WBC RBC Hgb Hct MCH RDW Plt Count Lymph % (Auto) Lymph # (Auto) [place] # (Auto) Seg Neutrophils % Seg Neuts % (Manual) Lymphocytes % (Manual) Nucleated RBC % Seg Neutrophils # Seg Neutrophils # Man Monocytes # (Manual) PT INR APTT D-Dimer Heparin Anti-Xa Level ABG pH ABG pO2 ABG HCO3 ABG O2 Saturation ABG Base Excess ABG Hemoglobin Oxyhemoglobin Sodium 146 H Potassium 3.3 L Chloride Carbon Dioxide 31 H BUN 43 H Creatinine Glucose 155 H POC Glucose 139 H 139 H Hemoglobin A1c Lactic Acid Calcium 8.3 L Phosphorus Magnesium Ferritin AST ALT Alkaline Phosphatase Lactate Dehydrogenase Troponin T C-Reactive Protein Total Protein Albumin LDL Cholesterol Direct Urine Creatinine Urine Total Protein Salicylates Acetaminophen Crossmatch 11/10/21 11/11/21 11/11/21 23:25 03:49 03:49 WBC 22.1 H RBC 2.69 L Hgb 7.2 L Hct 22.7 L MCH 27 L RDW Plt Count Lymph % (Auto) Lymph # (Auto) [place] # (Auto) Seg Neutrophils % Seg Neuts % (Manual) Lymphocytes % (Manual) Nucleated RBC % Seg Neutrophils # Seg Neutrophils # Man Monocytes # (Manual) PT INR APTT D-Dimer Heparin Anti-Xa Level ABG pH ABG pO2 ABG HCO3 ABG O2 Saturation ABG Base Excess ABG Hemoglobin Oxyhemoglobin Sodium Potassium Chloride Carbon Dioxide 32 H BUN 44 H Creatinine 1.3 H Glucose 173 H POC Glucose 146 H Hemoglobin A1c Lactic Acid Calcium Phosphorus Magnesium Ferritin AST ALT Alkaline Phosphatase Lactate Dehydrogenase Troponin T C-Reactive Protein Total Protein Albumin LDL Cholesterol Direct Urine Creatinine Urine Total Protein Salicylates Acetaminophen Crossmatch 11/11/21 11/11/21 11/11/21 05:03 10:50 11:32 WBC RBC Hgb Hct MCH RDW Plt Count Lymph % (Auto) Lymph # (Auto) [place] # (Auto) Seg Neutrophils % Seg Neuts % (Manual) Lymphocytes % (Manual) Nucleated RBC % Seg Neutrophils # Seg Neutrophils # Man Monocytes # (Manual) PT INR APTT D-Dimer Heparin Anti-Xa Level ABG pH ABG pO2 ABG HCO3 ABG O2 Saturation ABG Base Excess ABG Hemoglobin Oxyhemoglobin Sodium Potassium Chloride Carbon Dioxide BUN Creatinine Glucose POC Glucose 152 H 129 H 133 H Hemoglobin A1c Lactic Acid Calcium Phosphorus Magnesium Ferritin AST ALT Alkaline Phosphatase Lactate Dehydrogenase Troponin T C-Reactive Protein Total Protein Albumin LDL Cholesterol Direct Urine Creatinine Urine Total Protein Salicylates Acetaminophen Crossmatch 11/11/21 11/11/21 11/11/21 13:53 16:31 17:13 WBC RBC Hgb Hct MCH RDW Plt Count Lymph % (Auto) Lymph # (Auto) [place] # (Auto) Seg Neutrophils % Seg Neuts % (Manual) Lymphocytes % (Manual) Nucleated RBC % Seg Neutrophils # Seg Neutrophils # Man Monocytes # (Manual) PT INR APTT D-Dimer Heparin Anti-Xa Level ABG pH 7.475 H ABG pO2 64.1 L ABG HCO3 32.4 H ABG O2 Saturation ABG Base Excess 8.0 H ABG Hemoglobin 7.6 L Oxyhemoglobin 94.0 L Sodium Potassium Chloride Carbon Dioxide BUN Creatinine Glucose POC Glucose 116 H 125 H Hemoglobin A1c Lactic Acid Calcium Phosphorus Magnesium Ferritin AST ALT Alkaline Phosphatase Lactate Dehydrogenase Troponin T C-Reactive Protein Total Protein Albumin LDL Cholesterol Direct Urine Creatinine Urine Total Protein Salicylates Acetaminophen Crossmatch 11/11/21 11/11/21 11/12/21 20:40 23:35 03:30 WBC 17.7 H RBC 2.37 L Hgb 6.3 L Hct 20.0 L MCH 27 L RDW 15.5 H Plt Count Lymph % (Auto) Lymph # (Auto) [place] # (Auto) Seg Neutrophils % Seg Neuts % (Manual) Lymphocytes % (Manual) Nucleated RBC % Seg Neutrophils # Seg Neutrophils # Man Monocytes # (Manual) PT INR APTT D-Dimer Heparin Anti-Xa Level 0.26 L ABG pH ABG pO2 ABG HCO3 ABG O2 Saturation ABG Base Excess ABG Hemoglobin Oxyhemoglobin Sodium Potassium Chloride Carbon Dioxide BUN Creatinine Glucose POC Glucose 118 H Hemoglobin A1c Lactic Acid Calcium Phosphorus Magnesium Ferritin AST ALT Alkaline Phosphatase Lactate Dehydrogenase Troponin T C-Reactive Protein Total Protein Albumin LDL Cholesterol Direct Urine Creatinine Urine Total Protein Salicylates Acetaminophen Crossmatch 11/12/21 11/12/21 11/12/21 03:30 04:15 11:53 WBC RBC Hgb Hct MCH RDW Plt Count Lymph % (Auto) Lymph # (Auto) [place] # (Auto) Seg Neutrophils % Seg Neuts % (Manual) Lymphocytes % (Manual) Nucleated RBC % Seg Neutrophils # Seg Neutrophils # Man Monocytes # (Manual) PT INR APTT D-Dimer Heparin Anti-Xa Level ABG pH ABG pO2 ABG HCO3 ABG O2 Saturation ABG Base Excess ABG Hemoglobin Oxyhemoglobin Sodium Potassium Chloride Carbon Dioxide 33 H BUN 38 H Creatinine 1.3 H Glucose 102 H POC Glucose 62 L Hemoglobin A1c Lactic Acid Calcium 8.2 L Phosphorus Magnesium Ferritin AST ALT Alkaline Phosphatase Lactate Dehydrogenase Troponin T C-Reactive Protein Total Protein Albumin LDL Cholesterol Direct Urine Creatinine Urine Total Protein Salicylates Acetaminophen Crossmatch See Detail 11/12/21 11/12/21 11/12/21 17:20 19:14 23:11 WBC RBC Hgb 6.2 L Hct 19.5 L* MCH RDW Plt Count Lymph % (Auto) Lymph # (Auto) [place] # (Auto) Seg Neutrophils % Seg Neuts % (Manual) Lymphocytes % (Manual) Nucleated RBC % Seg Neutrophils # Seg Neutrophils # Man Monocytes # (Manual) PT INR APTT D-Dimer Heparin Anti-Xa Level ABG pH ABG pO2 ABG HCO3 ABG O2 Saturation ABG Base Excess ABG Hemoglobin Oxyhemoglobin Sodium Potassium Chloride Carbon Dioxide BUN Creatinine Glucose POC Glucose 115 H 131 H Hemoglobin A1c Lactic Acid Calcium Phosphorus Magnesium Ferritin AST ALT Alkaline Phosphatase Lactate Dehydrogenase Troponin T C-Reactive Protein Total Protein Albumin LDL Cholesterol Direct Urine Creatinine Urine Total Protein Salicylates Acetaminophen Crossmatch 11/13/21 11/13/21 11/13/21 00:13 04:17 04:17 WBC 23.8 H RBC 2.84 L Hgb 7.4 L 7.8 L Hct 23.3 L 24.9 L MCH 27 L RDW 15.4 H Plt Count Lymph % (Auto) Lymph # (Auto) [place] # (Auto) Seg Neutrophils % Seg Neuts % (Manual) Lymphocytes % (Manual) Nucleated RBC % Seg Neutrophils # Seg Neutrophils # Man Monocytes # (Manual) PT INR APTT D-Dimer Heparin Anti-Xa Level ABG pH ABG pO2 ABG HCO3 ABG O2 Saturation ABG Base Excess ABG Hemoglobin Oxyhemoglobin Sodium 146 H Potassium Chloride Carbon Dioxide BUN 44 H Creatinine 1.6 H Glucose 144 H POC Glucose Hemoglobin A1c Lactic Acid Calcium 7.9 L Phosphorus 5.10 H D Magnesium Ferritin AST ALT Alkaline Phosphatase Lactate Dehydrogenase Troponin T C-Reactive Protein Total Protein Albumin LDL Cholesterol Direct Urine Creatinine Urine Total Protein Salicylates Acetaminophen Crossmatch 11/13/21 11/13/21 05:52 10:54 WBC RBC Hgb Hct MCH RDW Plt Count Lymph % (Auto) Lymph # (Auto) [place] # (Auto) Seg Neutrophils % Seg Neuts % (Manual) Lymphocytes % (Manual) Nucleated RBC % Seg Neutrophils # Seg Neutrophils # Man Monocytes # (Manual) PT INR APTT D-Dimer Heparin Anti-Xa Level ABG pH ABG pO2 ABG HCO3 ABG O2 Saturation ABG Base Excess ABG Hemoglobin Oxyhemoglobin Sodium Potassium Chloride Carbon Dioxide BUN Creatinine Glucose POC Glucose 123 H 147 H Hemoglobin A1c Lactic Acid Calcium Phosphorus Magnesium Ferritin AST ALT Alkaline Phosphatase Lactate Dehydrogenase Troponin T C-Reactive Protein Total Protein Albumin LDL Cholesterol Direct Urine Creatinine Urine Total Protein Salicylates Acetaminophen Crossmatch Chest x-ray: image reviewed Allied health notes reviewed: RT
--- NOTE | 2021-11-13 13:34 | Consultation ---
History of Present Illness - Reason for Consult Consult date: 11/13/21 IVC Filter Placement and Retroperitoneal Bleeding Requesting physician: ABRAM DIAS - History of Present Illness The patient is a 66-year-old female who was brought to the emergency department after a PEA arrest on 10/29/2019. She had CPR performed in the outside setting was subsequently brought to [facility] where she was intubated and on the ventilator for over a week in the intensive care unit. She also require placement of a chest tube for pneumothorax. She was found to have DVTs involving the left posterior tibial and peroneal artery as well as the right peroneal artery. She was started on heparin and over the last 2 weeks her hemoglobin and hematocrit have trended down. She underwent a CT scan of the abdomen pelvis without contrast that demonstrated a retroperitoneal bleed as well as multiple rib fractures bilaterally. Her heparin drip was stopped secondary to the acute blood loss anemia and we were consulted for placement of an IVC filter as well as the bleeding. The patient currently has no complaints except wanting to eat. Past History Past Medical History: atrial fib, DVT, renal failure, other (Morbid obesity) Past Surgical History: No surgical history Social history: single. denies: smoking, alcohol abuse, prescription drug abuse Family history: diabetes, hypertension Medications and Allergies Allergies Allergy/AdvReac Type Severity Reaction Status Date / Time No Known Allergies Allergy Verified 10/29/21 14:01 Home Medications Medication Instructions Recorded Confirmed Last Taken Type Unobtainable 11/10/21 11/10/21 Unknown History Active Meds: Active Medications Acetaminophen (Acetaminophen 325 Mg Tab) 650 mg PO Q6H PRN PRN Reason: Pain, Mild (1-3) Last Admin: 11/11/21 13:35 Dose: 650 mg Acetaminophen (Acetaminophen 650 Mg Rect Supp) 650 mg DE Q6H PRN PRN Reason: Pain MILD(1-3)/Fever >100.5/NIEVES Last Admin: 11/12/21 22:53 Dose: 650 mg Amiodarone HCl (Amiodarone 200 Mg Tab) 200 mg PO QDAY RAMON Last Admin: 11/13/21 10:16 Dose: 200 mg Lipase/Protease/Amylase (Lipase 10,500/Protease 25,000/Amylase 43,750 (Units) Dr Cap) 1 each FEEDTUBE PRN PRN PRN Reason: For Clogged Feeding Tube Dextrose (Dextrose 10% *Hypoglycemia) 0 ml IV PRN PRN PRN Reason: Hypoglycemia Last Admin: 11/12/21 05:45 Dose: 50 ml Famotidine (Famotidine 10 Mg Tab) 10 mg PO BID [facility] Last Admin: 11/13/21 10:16 Dose: 10 mg Fentanyl (Fentanyl 100 Mcg/2 Ml Inj) 50 mcg IV Q2H PRN PRN Reason: Pain, Moderate (4-6) Last Admin: 11/09/21 00:01 Dose: 50 mcg Hydralazine HCl (Hydralazine 25 Mg Tab) 50 mg PO Q8HR RAMON Last Admin: 11/12/21 22:29 Dose: Not Given Hydralazine HCl (Hydralazine 20 Mg/1 Ml Inj) 10 mg IV Q4HR PRN PRN Reason: Hypertension Hydrophilic Ointment (Lip Therapy Vaseline) 1 applic TP Q2HR PRN PRN Reason: Dry Lips Last Admin: 11/09/21 08:51 Dose: 1 applic NORepinephrine/NS 8 MG-250 ML (Norepinephrine/Ns 8 Mg-250 Ml (Double Conc)) 8 mg in 250 mls @ 3.75 mls/hr IV TITRATE RAMON; Protocol Last Titration: 11/04/21 07:00 Dose: 0 mcg/min, 0 mls/hr Dexmedetomidine HCl 400 mcg/ (Sodium Chloride) 100 mls @ 5.335 mls/hr IV TITRATE RAMON; Protocol Last Titration: 11/13/21 10:05 Dose: 1 mcg/kg/hr, 26.675 mls/hr Dextrose (D5w) 1,000 mls @ 42 mls/hr IV DIRECT RAMON Last Admin: 11/12/21 13:07 Dose: 42 mls/hr Sodium Chloride (Nacl 0.9% 500 Ml) 500 mls @ 0 mls/hr IV ONCE RAMON Insulin Glargine (Insulin Glargine 100 Units/Ml) 10 units SUB-Q QHS RAMON Insulin Human Lispro (Insulin Lispro 100 Unit/Ml) 0 unit SUB-Q Q6HR RAMON; Protocol Last Admin: 11/13/21 05:23 Dose: Not Given Isosorbide Mononitrate (Isosorbide Mononitrate Er 30 Mg Tab) 30 mg PO QDAY [facility] Last Admin: 11/13/21 10:16 Dose: 30 mg Metoprolol Tartrate (Metoprolol Tartrate 50 Mg Tab) 50 mg FEEDTUBE Q6H [facility] Last Admin: 11/13/21 05:23 Dose: Not Given Multi-Ingred Cream/Lotion/Oil/Oint (Mineral Oil/Petrolatum, White Ophth Oint 3.5 Gm) 1 applic OU Q4HR PRN PRN Reason: Dry Eye(s) Last Admin: 11/06/21 09:25 Dose: 1 applic Senna/Docusate Sodium (Sennosides/Docusate Sodium 8.6/50 Mg Tab) 1 tab FEEDTUBE BID [facility] Last Admin: 11/13/21 10:16 Dose: 1 tab Simple Syrup (Simple Syrup 15 Ml) 15 ml FEEDTUBE PRN PRN PRN Reason: Hypoglycemia Simple Syrup (Simple Syrup 15 Ml) 30 ml FEEDTUBE PRN PRN PRN Reason: Hypoglycemia Sodium Bicarbonate (Sodium Bicarbonate 325 Mg Tab) 325 mg FEEDTUBE PRN PRN PRN Reason: For Clogged Feeding Tube Sodium Chloride (Sodium Chloride 0.9% 10 Ml Flush Syringe) 10 ml IV BID [facility] Last Admin: 11/12/21 22:29 Dose: Not Given Sodium Chloride (Sodium Chloride 0.9% 10 Ml Flush Syringe) 10 ml IV PRN PRN PRN Reason: LINE FLUSH Spironolactone (Spironolactone 25 Mg Tab) 25 mg PO QDAY [facility] Last Admin: 11/13/21 10:16 Dose: 25 mg Review of Systems All systems: negative Exam - Constitutional Vitals: Temp Pulse Resp BP Pulse Ox 98.5 F 130 H 32 H 102/66 98 11/13/21 11:21 11/13/21 13:14 11/13/21 13:14 11/13/21 13:14 11/13/21 13:14 General appearance: Present: no acute distress, other (Patient is alert and oriented) - Respiratory Respiratory effort: other (Patient currently on BiPAP) - Cardiovascular Heart rate: 120 Rhythm: irregularly irregular - Extremities Extremities: pulses intact (Palpable pedal pulses bilaterally) Extremity abnormal: edema (Moderate edema of bilateral lower extremities from the knee distally with the left being slightly worse than the right) - Abdominal General gastrointestinal: Present: other (Ecchymosis involving the left flank with slight firmness but the patient denies any tenderness) Female genitourinary: Present: deferred - Rectal Rectal Exam: deferred Results - Labs CBC & Chem 7: 11/13/21 04:17 11/13/21 04:17 Labs: Abnormal lab results 11/12/21 11/12/21 11/12/21 Range/Units 04:15 17:20 19:14 WBC (4.5-11.0) K/mm3 RBC (3.65-5.03) M/mm3 Hgb 6.2 L (10.1-14.3) gm/dl Hct 19.5 L* (30.3-42.9) % MCH (28-32) pg RDW (13.2-15.2) % Sodium (137-145) mmol/L BUN (7-17) mg/dL Creatinine (0.6-1.2) mg/dL Glucose (65-100) mg/dL POC Glucose 115 H (70-105) mg/dL Calcium (8.4-10.2) mg/dL Phosphorus (2.5-4.5) mg/dL Crossmatch See Detail 11/12/21 11/13/21 11/13/21 Range/Units 23:11 00:13 04:17 WBC 23.8 H (4.5-11.0) K/mm3 RBC 2.84 L (3.65-5.03) M/mm3 Hgb 7.4 L 7.8 L (10.1-14.3) gm/dl Hct 23.3 L 24.9 L (30.3-42.9) % MCH 27 L (28-32) pg RDW 15.4 H (13.2-15.2) % Sodium (137-145) mmol/L BUN (7-17) mg/dL Creatinine (0.6-1.2) mg/dL Glucose (65-100) mg/dL POC Glucose 131 H (70-105) mg/dL Calcium (8.4-10.2) mg/dL Phosphorus (2.5-4.5) mg/dL Crossmatch 11/13/21 11/13/21 11/13/21 Range/Units 04:17 05:52 10:54 WBC (4.5-11.0) K/mm3 RBC (3.65-5.03) M/mm3 Hgb (10.1-14.3) gm/dl Hct (30.3-42.9) % MCH (28-32) pg RDW (13.2-15.2) % Sodium 146 H (137-145) mmol/L BUN 44 H (7-17) mg/dL Creatinine 1.6 H (0.6-1.2) mg/dL Glucose 144 H (65-100) mg/dL POC Glucose 123 H 147 H (70-105) mg/dL Calcium 7.9 L (8.4-10.2) mg/dL Phosphorus 5.10 H D (2.5-4.5) mg/dL Crossmatch - Imaging and Cardiology Chest x-ray: image reviewed CT scan - abdomen: image reviewed Assessment and Plan The patient is a 66-year-old female with a history of cardiac arrest and recent CPR. She was found to have bilateral below-knee DVTs and started on heparin for management. She subsequently had acute blood loss anemia and was found to have a retroperitoneal hematoma with layering suggesting chronic and acute bleeding. Anne-Marie overton is also found to have multiple bilateral rib fractures. Her heparin drip was stopped secondary to the bleeding and the patient received 2 units of packed red blood cells and appropriately responded. We recommend continuing to hold the heparin to prevent further bleeding. She does not require any vascular surgery intervention for the bleeding as this was likely from trauma secondary to the rib fractures. Would not recommend placing an IVC filter for bilateral below-knee DVTs. We will recheck a venous duplex to evaluate for propagation of the DVTs. If there is no propagation would recommend DIANA felixe and SCDs to bilateral lower extremities for management of the below-knee DVTs. If there is propagation of the DVTs into the popliteal vein or proximal that would be an indication for placement of an IVC filter until the patient can resume anticoagulation.
--- NOTE | 2021-11-13 13:59 | Progress Note ---
Assessment and Plan Assessment and plan: This is a 66-year-old female with past medical history of HTN and Obesity admitted for septic shock, s/p cardiac arrest with ROSC in the field now intubated and on ventilatory support Hospital Course to Date: 10/30: Intubated and sedated, on fentanyl gtt. Open eyes spontaneously but does not follow any commands. On vasopressors, titrate as tolerated for MAP above 65. Patient febrile overnight, continue empiric IV Abx, culture data and COVID PCR pending. Patient is also s/p CT placement due to spontaneous pneumothorax. 2D echo is pending and Cardiology is consulted. 10/31: Patient remains intubated and following commands. Levophed drip stopped and potassium repleted. Patient started on tube feeding. Remains in soft bilateral restraints. 11/01: RN noted ST changes on BSM and 12 lead EKG obtained which showed ST. Given Ativan 1mg for agitation as she is maxed on fentanyl drip and IV push fentanyl did not seem to help. Patient was started on CPAP this morning by RT but remained on fentanyl drip and was having periods of apnea. Plan was to retry CPAP again in the p.m. with sedation off. 11/02: Rate increased r/t hypercapnea on ABG, sedation reduced. Given kionex for hyperkalemia and was started on levophed overnight for hypotension. 11/03: Overnight patient had tachycardia and was given Cardizem and Lopressor. Lopressor was repeated in the a.m. due to tachycardia. Patient will be started on amiodarone with a bolus per cardiology. Patient started on normal saline per liter per [facility] and steroids for angioedema. Noted to have bright red blood when suctioned from [place] ETT. Remains on heparin drip as H/H is stable for now. Will reevaluate. Fentanyl drip was restarted last night due to agitation. Dr. Flores updated family today 11/04: Patient was sedated on fentanyl however off sedation is able to follow commands, a.m. labs completed in the p.m. and show hyperkalemia with increased renal function studies. Nephrology, neurology consulted by [facility]. Given Kayexalate, insulin and D50 for hyperkalemia. Patient remains on amiodarone. 11/05: Patient needed to be sedated on fentanyl again to today. overnight krishna was replaced. Hyperkalemia->given kionex 60 for 5.6. Repeat K 6-> Dr. Grant informed and requested bumex, kionex, insulin, d50, calcium gluconate and sodium bicarb with repeat BMP in 2 hours which were placed. HR remains elevated. 11/06: Patient remained in atrial fibrillation/atrial flutter with heart rate in the 150s despite being on amnio drip and was given amnio bolus, Cardizem bolus and started on Cardizem drip by cardiology. Patient is on beta-blockers p.o. scheduled and to feedings changed to Nepro. Kayexalate was given in the morning by nephrology due to hyperkalemia. 11/07: Patient is only responsive to mild stimuli, precedex added in an attempt to wean off fentanyl gtt to better assess her mental status. Neurology also on consult, pending MRI and EEG. Patient remains in Aflutter this am, HR in the 80 to 90s, still on amiodarone and heparin gtt. 11/08: Fentanyl gtt is off, only on precedex gtt. Patient is still not following any commands. MRI brain and EEG completed. Neuro recommendations noted, sedatives agents decreased. FWF added for hypernatremia and low K repleted, repeat labs ordered. Placed a call and spoke with patient's daughter, Eva Brown . She was updated on patient's conditions and status. All questions and concerns were voiced at this time. 11/09: Patient is awake and alert this am, following commands and appropriate. Remains on precedex gtt, plan for possible PST today. Hypertensive overnight, meds adjusted by Cardio and PRN Hydralazine added for SBP greater than 160. CT dislodged overnight, CXR is stable with no significant change. F/U CXR in the am. Patient's daughter, Eva Brown, visited with patient. She was updated on patient's status and goal of care for today. All questions and concerns were voiced at this time. 11/10: Mentation remains intact, still on precedex gtt. This am CXR noted still with fluid overload s/p X1 dose of IV lasix, good response from IV lasix overnight. Hypernatremia improved, D5W d/dayday. Still with persistent hypokalemia, continue electrolytes replacement and frequent lab check. Daily IV lasix and aldactone added by Cardio. Patient is also with persistent low grade fevers overnight, leukocytosis with mild improvement this am. Will get a repeat sputum culture, hold off on IV abx for now. Consider ID consult if fevers and leukocytosis persist. Patient tolerated PST X4hrs yesterday. PST again today, plan to wean to extubate if tolerated. 11/11: IAM overnight. Off precedex gtt and tolerated PST this am. Plan to wean to extubate today. Additional IV lasix given, plan to keep patient at a net negative balance for better lung compliance. F/U CXR in the am. K improved this am, repeat BMP this afternoon since diuresing. Remains with low grade fevers, leukocytosis downtrending, will continue to monitor. Speech/PT/OT ordered 11/12: S/p extubation, now stable on 3L NC. This am CXR noted with no significant changes, lasix changed to IV X4days BID. Drop in H&H this am, and Lt. flank ecchymosis noted. Heparin gtt on hold for now and orders placed for 1 unit of PRBCs and Ct Abd/Pelvis w/o con to r/o retroperitoneal bleed. Pending speech swallow eval, keep patient NPO for now. Patient is stable for IMCU status 11/13: Patient with increased WOB and tachycardia this am, patient was placed on Bipap and precedex gtt was resumed. CXR with mild improvement. CT Abd/Pelvis also reviewed large hematomas noted at the Lt. retroperitoneum and left posterior lateral abdominal wall. Heparin gtt is already on hold, patient is hemodynamically stable. Vascular Surgery consulted for possible IVC filter eval. Patient s/p 2units of PRBCs, will continue to trend H&H and transfuse if hbg is less than 7. Worsening renal function this am, IF diuretic on hold for now. Patient is also febrile with spike in wbcs most likely reactive to bleed, will panculture and hold off on IV Abx for now. Patient also failed speech bedside swallow eval yesterday, NGT in placed plan to resume enteral nutrition Assessment and Plan #Hypertension #New Onset Atrial fibrillation/atrial flutter #HFrEF #s/p Cardiac Arrest with ROSC - Outside hospital cardiac arrest with ROSC - New onset Afib/Aflutter--> SR on the monitor this am - Cardiology consulted, appreciate recommendations - S/p Cardizem gtt- d/c due to low EF; now on PO Amio - 10/30 Echocardiogram shows left ventricular systolic function severely decreased, LVEF 25 to 30%, no pericardial effusion - Hypertensive overnight, meds adjusted by Cardio - PRN Hydralazive for SBP greater than 160 - Continue BB per Cardio - IV Lasix on hold - Continue blood pressure monitor per protocol - Strick I&Os and daily weight #Acute Hypoxemic Respiratory Failure #Spontaneous Pneumothorax s/p CT placement - Intubated in the filed post cardiac arrest on 10/29 - 11/11 s/p extubation - Now on 3L NC - BIPAP qHS and PRN - CCM consulted, appreciate recommendations - Aspiration precaution HOB above 30 - Continue O2 supplementation and wean as tolerated - Continue SPO2 monitoring for SPO2 goal above 92% #Agitation/Anxiety #Acute Metabolic Encephalopathy-improved - Awake and appropriate this am, following commands - Now with increased anxiety, precedex gtt resumed - Titrate precedex for RASS goal of 0 to -1 - Neurology on consult - EEG and MRI noted, Neuro recommend to cut down on sedation as possible - Continue to hold Seroquel - Avoid benzodiazepine to reduce the possibility of delirium - Prn analgesia for CPOT greater than 3 #Hypokalemia-improved #Acute Kidney Injury (SIERRA) most likely ATN - Due to hypoperfusion/hypotension and septic shock - Nephrology consulted, appreciate recommendations - IV lasix on hold due worsen renal function - Strict intake and output - Avoid nephrotoxic medications; Renally dose medications - Monitor and replace electrolytes as needed - Trend BMP #Septic Shock #Leukocytosis - s/p cardiac arrest with ROSC in the field - Presented febrile, with elevated lactic, leukocytosis, and hypotnesive required pressors - Blood culture, urine and sputum culture are negative - Patient completed X5days course of IV Abx - Persistent low grade fevers, WBCs with mild improvement - Panculture patient today - Hold off on any IV Abx for now - Will continue to trend CBC #Anemia #Retroperitoneum and Abdominal wall hematomas - s/p 2 unit of PRBCs ordered - AC- heparin gtt on hold - Lt. flank ecchymosis noted - 11/12 CT abd/Pelvis with large hematomas noted at the Lt. retroperitoneum and left posterior lateral abdominal wall. - Monitor for s/s of active bleeding - Serial H&H Q12hrs - Transfuse for hbg less than 7 #Acute BLE DVT - D-D[place] [id number] on admit - CTA chest with no evidence of PE - / BLE doppler + acute DVT in the left posterior tibial vein and bilateral peroneal veins - Heparin gtt on hold due anemia - Vascular Surgery consulted for possible IVC filter #Transaminitis #Shock liver - Most likely reactive s/p cardiac arrest - LFT down trending - Continue to trend LTFs #hypoglycemia #Hyperglycemia-resolved - Hbg A1C 6.7 - Most likely due to NPO status - Failed speech swallow eval - NGT in place- resume enteral nutrition - Continue SSI Q6hrs - Avoid Hypoglycemia The high probability of a clinically significant, sudden or life threatening deterioration of the [multiple] system(s) required my full and direct attention, intervention and personal management. The aggregate critical care time was [60] minutes. This time is in addition to time spent performing reported procedures but includes the following: [x] Data Review and interpretation [x] Patient assessment and monitoring of vital signs [x] Documentation [x] Medication orders and management Disposition Plan: ICU Total Time Spent with Patient (Minutes): 60 History Interval history: Patient seen and examined at the bedside. Patient appears to be in distress this am, with increased WOB, and tachycardia. Patient voiced increased anxiety. Precedex gtt was restarted and patient was placed back on the Bipap. Hospitalist Physical - Constitutional Vitals: Temp Pulse Resp BP Pulse Ox 98.5 F 130 H 32 H 102/66 98 11/13/21 11:21 11/13/21 13:14 11/13/21 13:14 11/13/21 13:14 11/13/21 13:14 General appearance: Present: severe distress, obese - EENT Eyes: Present: PERRL ENT: hearing intact - Neck Neck: Present: normal ROM - Respiratory Respiratory effort: labored, accessory muscle use Respiratory: bilateral: rhonchi - Cardiovascular Rhythm: regular Heart Sounds: Present: S1 & S2 - Extremities Extremities: no ischemia, pulses intact, pulses symmetrical Extremity abnormal: edema - Peripheral Assessment Generalized Edema Type: Non-pitting Edema Degree: 2+ Capillary Refill: < 3 seconds Skin Temperature: Warm Peripheral Pulses: within normal limits - Abdominal General gastrointestinal: soft, tender (Lt. side/ lt. flank ecchymosis), normal bowel sounds - Integumentary Integumentary: Present: warm, dry - Psychiatric Psychiatric: agitated - Neurologic Neurologic: moves all extremities, other (Following commands) - Allied Health Allied health notes reviewed: nursing HEART Score - HEART Score Troponin: Troponin T 1.150 ng/mL (0.00-0.029) H* D 10/29/21 22:34 Results - Labs CBC & Chem 7: 11/13/21 16:01 11/13/21 04:17 Labs: Laboratory Last Values WBC 23.8 K/mm3 (4.5-11.0) H 11/13/21 04:17 RBC 2.84 M/mm3 (3.65-5.03) L 11/13/21 04:17 Hgb 7.8 gm/dl (10.1-14.3) L 11/13/21 04:17 Hct 24.9 % (30.3-42.9) L 11/13/21 04:17 MCV 88 fl (79-97) 11/13/21 04:17 MCH 27 pg (28-32) L 11/13/21 04:17 MCHC 31 % (30-34) 11/13/21 04:17 RDW 15.4 % (13.2-15.2) H 11/13/21 04:17 Plt Count 262 K/mm3 (140-440) 11/13/21 04:17 Lymph % (Auto) 6.2 % (13.4-35.0) L 10/30/21 04:30 Williamson % (Auto) 5.5 % (0.0-7.3) 10/30/21 04:30 Eos % (Auto) 0.1 % (0.0-4.3) 10/30/21 04:30 Baso % (Auto) 0.1 % (0.0-1.8) 10/30/21 04:30 Lymph # (Auto) 1.0 K/mm3 (1.2-5.4) L 10/30/21 04:30 Williamson # (Auto) 0.9 K/mm3 (0.0-0.8) H 10/30/21 04:30 Eos # (Auto) 0.0 K/mm3 (0.0-0.4) 10/30/21 04:30 Baso # (Auto) 0.0 K/mm3 (0.0-0.1) 10/30/21 04:30 Add Manual Diff Complete 11/07/21 06:30 Total Counted 100 11/07/21 06:30 Seg Neutrophils % 88.1 % (40.0-70.0) H 10/30/21 04:30 Seg Neuts % (Manual) 77.0 % (40.0-70.0) H 11/07/21 06:30 Band Neutrophils % 1.0 % 11/07/21 06:30 Lymphocytes % (Manual) 11.0 % (13.4-35.0) L 11/07/21 06:30 Reactive Lymphs % (Man) 3.0 % 11/07/21 06:30 Monocytes % (Manual) 2.0 % (0.0-7.3) 11/07/21 06:30 Eosinophils % (Manual) 0 % (0.0-4.3) 11/07/21 06:30 Basophils % (Manual) 0 % (0.0-1.8) 11/07/21 06:30 Metamyelocytes % 1.0 % 11/07/21 06:30 Myelocytes % 5.0 % 11/07/21 06:30 Promyelocytes % 0 % 11/07/21 06:30 Blast Cells % 0 % 11/07/21 06:30 Nucleated RBC % 2.0 % (0.0-0.9) H 11/07/21 06:30 Seg Neutrophils # 14.2 K/mm3 (1.8-7.7) H 10/30/21 04:30 Seg Neutrophils # Man 12.3 K/mm3 (1.8-7.7) H 11/07/21 06:30 Band Neutrophils # 0.2 K/mm3 11/07/21 06:30 Lymphocytes # (Manual) 1.8 K/mm3 (1.2-5.4) 11/07/21 06:30 Abs React Lymphs (Man) 0.5 K/mm3 11/07/21 06:30 Monocytes # (Manual) 0.3 K/mm3 (0.0-0.8) 11/07/21 06:30 Eosinophils # (Manual) 0.0 K/mm3 (0.0-0.4) 11/07/21 06:30 Basophils # (Manual) 0.0 K/mm3 (0.0-0.1) 11/07/21 06:30 Metamyelocytes # 0.2 K/mm3 11/07/21 06:30 Myelocytes # 0.8 K/mm3 11/07/21 06:30 Promyelocytes # 0.0 K/mm3 11/07/21 06:30 Blast Cells # 0.0 K/mm3 11/07/21 06:30 WBC Morphology Not Reportable 11/07/21 06:30 Hypersegmented Neuts Not Reportable 11/07/21 06:30 Hyposegmented Neuts Not Reportable 11/07/21 06:30 Hypogranular Neuts Not Reportable 11/07/21 06:30 Smudge Cells Not Reportable 11/07/21 06:30 Toxic Granulation Not Reportable 11/07/21 06:30 Toxic Vacuolation Not Reportable 11/07/21 06:30 Dohle Bodies Not Reportable 11/07/21 06:30 Pelger-Huet Anomaly Not Reportable 11/07/21 06:30 Manny Rods Not Reportable 11/07/21 06:30 Platelet Estimate Consistent w auto 11/07/21 06:30 Clumped Platelets Not Reportable 11/07/21 06:30 Plt Clumps, EDTA Not Reportable 11/07/21 06:30 Large Platelets 1+ 11/07/21 06:30 Giant Platelets Not Reportable 11/07/21 06:30 Platelet Satelliting Not Reportable 11/07/21 06:30 Plt Morphology Comment Not Reportable 11/07/21 06:30 RBC Morphology Not Reportable 11/07/21 06:30 Dimorphic RBCs Not Reportable 11/07/21 06:30 Polychromasia Not Reportable 11/07/21 06:30 Hypochromasia 1+ 11/07/21 06:30 Poikilocytosis Not Reportable 11/07/21 06:30 Anisocytosis Not Reportable 11/07/21 06:30 Microcytosis Not Reportable 11/07/21 06:30 Macrocytosis Not Reportable 11/07/21 06:30 Spherocytes 1+ 11/07/21 06:30 Pappenheimer Bodies Not Reportable 11/07/21 06:30 Sickle Cells Not Reportable 11/07/21 06:30 Target Cells 1+ 11/07/21 06:30 Tear Drop Cells Not Reportable 11/07/21 06:30 Ovalocytes Not Reportable 11/07/21 06:30 Helmet Cells Not Reportable 11/07/21 06:30 [place] Bodies Not Reportable 11/07/21 06:30 [place] Rings Not Reportable 11/07/21 06:30 [place] Cells Not Reportable 11/07/21 06:30 Bite Cells Not Reportable 11/07/21 06:30 Crenated Cell Not Reportable 11/07/21 06:30 Elliptocytes Not Reportable 11/07/21 06:30 Acanthocytes (Spur) Not Reportable 11/07/21 06:30 Rouleaux Not Reportable 11/07/21 06:30 Hemoglobin C Crystals Not Reportable 11/07/21 06:30 Schistocytes Not Reportable 11/07/21 06:30 Malaria parasites Not Reportable 11/07/21 06:30 Magdy Bodies Not Reportable 11/07/21 06:30 Hem Pathologist Commnt No 11/07/21 06:30 PT 17.2 Sec. (12.2-14.9) H 10/30/21 16:30 INR 1.27 (0.87-1.13) H 10/30/21 16:30 APTT 44.4 Sec. (24.2-36.6) H 10/30/21 16:30 D-Dimer > 87132 ng/mlDDU (0-234) H 10/30/21 Unknown Heparin Anti-Xa Level 0.62 U.I./ml (0.3-0.7) 11/12/21 03:30 ABG pH 7.475 pH Units (7.350-7.450) H 11/11/21 13:53 ABG pCO2 45.0 mm Hg 11/11/21 13:53 ABG pO2 64.1 mm Hg (80.0-90.0) L 11/11/21 13:53 ABG HCO3 32.4 mmol/L (20.0-26.0) H 11/11/21 13:53 ABG O2 Saturation 96.3 % (95.0-99.0) 11/11/21 13:53 ABG O2 Content 10.1 (0.0-44) 11/11/21 13:53 ABG Base Excess 8.0 mmol/L (-2.0-3.0) H 11/11/21 13:53 ABG Hemoglobin 7.6 gm/dl (12.0-16.0) L 11/11/21 13:53 ABG Carboxyhemoglobin 1.8 % (0.0-5.0) 11/11/21 13:53 ABG Methemoglobin 0.5 % (0.0-1.5) 11/11/21 13:53 Oxyhemoglobin 94.0 % (95.0-99.0) L 11/11/21 13:53 FiO2 32 % 11/11/21 13:53 Sodium 146 mmol/L (137-145) H 11/13/21 04:17 Potassium 4.6 mmol/L (3.6-5.0) 11/13/21 04:17 Chloride 107.0 mmol/L (98-107) 11/13/21 04:17 Carbon Dioxide 25 mmol/L (22-30) D 11/13/21 04:17 Anion Gap 19 mmol/L 11/13/21 04:17 BUN 44 mg/dL (7-17) H 11/13/21 04:17 Creatinine 1.6 mg/dL (0.6-1.2) H 11/13/21 04:17 Estimated GFR 39 ml/min 11/13/21 04:17 BUN/Creatinine Ratio 28 % 11/13/21 04:17 Glucose 144 mg/dL (65-100) H 11/13/21 04:17 POC Glucose 147 mg/dL (70-105) H 11/13/21 10:54 Hemoglobin A1c 6.7 % (4-6) H 10/31/21 04:30 Lactic Acid 0.70 mmol/L (0.7-2.0) 10/31/21 15:45 Calcium 7.9 mg/dL (8.4-10.2) L 11/13/21 04:17 Phosphorus 5.10 mg/dL (2.5-4.5) H D 11/13/21 04:17 Magnesium 2.10 mg/dL (1.7-2.3) 11/13/21 04:17 Ferritin 208.4 ng/mL (10.0-200.0) H 10/30/21 Unknown Total Bilirubin < 0.20 mg/dL (0.1-1.2) 11/06/21 02:35 AST 21 units/L (5-40) 11/06/21 02:35 ALT 77 units/L (7-56) H 11/06/21 02:35 Alkaline Phosphatase 84 units/L (35-129) 11/06/21 02:35 Ammonia 31.0 umol/L (25-60) 10/29/21 15:10 Lactate Dehydrogenase 469 units/L (91-180) H 10/30/21 Unknown Troponin T 1.150 ng/mL (0.00-0.029) H* D 10/29/21 22:34 C-Reactive Protein 13.40 mg/dL (0.00-1.30) H 10/30/21 Unknown Total Protein 6.3 g/dL (6.3-8.2) 11/06/21 02:35 Albumin 3.0 g/dL (3.9-5) L 11/06/21 02:35 Albumin/Globulin Ratio 0.9 % 11/06/21 02:35 Triglycerides 68 mg/dL (2-149) 10/29/21 19:40 Cholesterol 98 mg/dL (50-199) 10/29/21 19:40 LDL Cholesterol Direct 43 mg/dL (50-130) L 10/29/21 19:40 HDL Cholesterol 50 mg/dL (40-59) 10/29/21 19:40 Cholesterol/HDL Ratio 1.96 % 10/29/21 19:40 Procalcitonin 61.95 ng/mL (<0.15) 10/30/21 Unknown TSH 3.080 mlU/mL (0.270-4.200) 10/29/21 15:10 Urine Color Yellow (Yellow) 11/13/21 08:30 Urine Turbidity Slightly-cloudy (Clear) 11/13/21 08:30 Urine pH 6.0 (5.0-7.0) 11/13/21 08:30 Ur Specific Salome 1.010 (1.003-1.030) 11/13/21 08:30 Urine Protein <15 mg/dl mg/dL (Negative) 11/13/21 08:30 Urine Glucose (UA) Neg mg/dL (Negative) 11/13/21 08:30 Urine Ketones Tr mg/dL (Negative) 11/13/21 08:30 Urine Blood Sm (Negative) 11/13/21 08:30 Urine Nitrite Neg (Negative) 11/13/21 08:30 Urine Bilirubin Neg (Negative) 11/13/21 08:30 Urine Urobilinogen < 2.0 mg/dL (<2.0) 11/13/21 08:30 Ur Leukocyte Esterase Neg (Negative) 11/13/21 08:30 Urine WBC (Auto) < 1.0 /HPF (0.0-6.0) 11/13/21 08:30 Urine RBC (Auto) < 1.0 /HPF (0.0-6.0) 11/13/21 08:30 U Epithel Cells (Auto) < 1.0 /HPF (0-13.0) 11/13/21 08:30 Urine Mucus Few /HPF 10/29/21 18:15 Urine Eosinophils None seen (None Seen) 11/04/21 Unknown Urine Creatinine 190.9 mg/dL (0.1-20.0) H 11/04/21 Unknown Protein/Creatinin Ratio 0.90 11/04/21 Unknown Urine Sodium 10 mmol/L 11/04/21 Unknown Urine Total Protein 172 mg/dL (5-11.8) H 11/04/21 Unknown Salicylates < 0.3 mg/dL (2.8-20.0) L 10/29/21 15:10 Urine Opiates Screen Negative 10/29/21 18:15 Urine Methadone Screen Negative 10/29/21 18:15 Acetaminophen 5.0 ug/mL (10.0-30.0) L 10/29/21 15:10 Ur Barbiturates Screen Negative 10/29/21 18:15 Ur Phencyclidine Scrn Negative 10/29/21 18:15 Ur Amphetamines Screen Negative 10/29/21 18:15 U Benzodiazepines Scrn Negative 10/29/21 18:15 Urine Cocaine Screen Negative 10/29/21 18:15 U Marijuana (THC) Screen Negative 10/29/21 18:15 Drugs of Abuse Note Disclamer 10/29/21 18:15 Plasma/Serum Alcohol < 0.01 % (0-0.07) 10/29/21 15:10 Coronavirus (PCR) Negative (Negative) 10/30/21 Unknown Blood Type O POSITIVE 11/12/21 04:15 Antibody Screen Negative 11/12/21 04:15 Crossmatch See Detail 11/12/21 04:15 Microbiology: Microbiology 11/10/21 11:12 Tracheal Aspirate Sputum Culture - Final Krishna/IV: Voiding Method Indwelling Catheter Active Medications - Current Medications Current Medications: Generic Name Dose Route Start Last Admin Trade Name Freq PRN Reason Stop Dose Admin Acetaminophen 650 mg 10/29/21 17:04 11/11/21 13:35 Acetaminophen 325 Mg Tab PO 650 mg Q6H PRN Administration Pain, Mild (1-3) Acetaminophen 650 mg 10/29/21 17:04 11/12/21 22:53 Acetaminophen 650 Mg Rect Supp DC 650 mg Q6H PRN Administration Pain MILD(1-3)/Fever >100.5/NIEVES Amiodarone HCl 200 mg 11/08/21 10:00 11/13/21 10:16 Amiodarone 200 Mg Tab PO 200 mg QDAY RAMON Administration Lipase/Protease/Amylase 1 each 10/31/21 08:56 Lipase 10,500/Protease 25,000/Amylase 43,750 (Units) Dr Ivory FEEDTUBE PRN PRN For Clogged Feeding Tube Dextrose 0 ml 11/04/21 13:48 11/12/21 05:45 Dextrose 10% *Hypoglycemia IV 50 ml PRN PRN Administration Hypoglycemia Famotidine 10 mg 11/06/21 10:00 11/13/21 10:16 Famotidine 10 Mg Tab PO 10 mg BID RAOMN Administration Fentanyl 50 mcg 11/04/21 14:32 11/09/21 00:01 Fentanyl 100 Mcg/2 Ml Inj IV 50 mcg Q2H PRN Administration Pain, Moderate (4-6) Hydralazine HCl 50 mg 11/09/21 14:00 11/12/21 22:29 Hydralazine 25 Mg Tab PO Not Given Q8HR RAMON Hydralazine HCl 10 mg 11/09/21 13:05 Hydralazine 20 Mg/1 Ml Inj IV Q4HR PRN Hypertension Hydrophilic Ointment 1 applic 10/29/21 14:29 11/09/21 08:51 Lip Therapy Vaseline TP 1 applic Q2HR PRN Administration Dry Lips NORepinephrine/NS 8 MG-250 ML 8 mg in 250 mls @ 3.75 mls/hr 10/29/21 15:00 11/04/21 07:00 Norepinephrine/Ns 8 Mg-250 Ml (Double Conc) IV 0 mcg/min TITRATE RAMON 0 mls/hr Titration Protocol 2 MCG/MIN Dexmedetomidine HCl 400 mcg/ 100 mls @ 5.335 mls/hr 11/11/21 21:00 11/13/21 11:30 Sodium Chloride IV 0.5 mcg/kg/hr TITRATE RAMON 13.338 mls/hr Administration Protocol 0.2 MCG/KG/HR Dextrose 1,000 mls @ 42 mls/hr 11/12/21 13:00 11/12/21 13:07 D5w IV 42 mls/hr DIRECT RAMON Administration Sodium Chloride 500 mls @ 0 mls/hr 11/12/21 20:00 Nacl 0.9% 500 Ml IV ONCE RAMON Per Protocol Insulin Glargine 10 units 11/13/21 22:00 Insulin Glargine 100 Units/Ml SUB-Q QHS [facility] Insulin Human Lispro 0 unit 10/30/21 16:00 11/13/21 05:23 Insulin Lispro 100 Unit/Ml SUB-Q Not Given Q6HR [facility] Protocol Isosorbide Mononitrate 30 mg 11/08/21 10:00 11/13/21 10:16 Isosorbide Mononitrate Er 30 Mg Tab PO 30 mg QDAY RAMON Administration Metoprolol Tartrate 50 mg 11/07/21 12:00 11/13/21 05:23 Metoprolol Tartrate 50 Mg Tab FEEDTUBE Not Given Q6H [facility] Multi-Ingred Cream/Lotion/Oil/Oint 1 applic 10/29/21 14:29 11/06/21 09:25 Mineral Oil/Petrolatum, White Ophth Oint 3.5 Gm OU 1 applic Q4HR PRN Administration Dry Eye(s) Senna/Docusate Sodium 1 tab 10/29/21 15:00 11/13/21 10:16 Sennosides/Docusate Sodium 8.6/50 Mg Tab FEEDTUBE 1 tab BID RAMON Administration Simple Syrup 15 ml 10/31/21 08:56 Simple Syrup 15 Ml FEEDTUBE PRN PRN Hypoglycemia Simple Syrup 30 ml 10/31/21 08:56 Simple Syrup 15 Ml FEEDTUBE PRN PRN Hypoglycemia Sodium Bicarbonate 325 mg 02/07/22 08:56 Sodium Bicarbonate 325 Mg Tab FEEDTUBE PRN PRN For Clogged Feeding Tube Sodium Chloride 10 ml 10/29/21 22:00 11/12/21 22:29 Sodium Chloride 0.9% 10 Ml Flush Syringe IV Not Given BID RAMON Sodium Chloride 10 ml 10/29/21 17:04 Sodium Chloride 0.9% 10 Ml Flush Syringe IV PRN PRN LINE FLUSH Spironolactone 25 mg 11/10/21 10:00 11/13/21 10:16 Spironolactone 25 Mg Tab PO 25 mg QDAY RAMON Administration Nutrition/Malnutrition Assess - Dietary Evaluation Nutrition/Malnutrition Findings: Nutrition Notes Start: 10/30/21 09:50 Freq: Status: Active Protocol: Document 11/08/21 09:54 MEENU (Rec: 11/08/21 10:20 MEENU [email or web address]) Nutrition Notes Initial or Follow up Reassessment Current Diagnosis Acute Kidney Injury,Sepsis, Heart Failure,Respiratory Failure Other Pertinent Diagnosis SIERRA/ATN, s/p Cardiac Arrest, DVT, Anemia, Hyperkalemia. Current Diet TF-Nepro w/CARBSTEADY @ 37 ml/ hr (since D 11/06). Labs/Tests 11/08: Na 151, K 3.1, Cl 107.3 , CO2 31, BUN 82, Crea 1.8, Glu 232, Ca 8.1. Pertinent Medications 11/08: Insulin, others nutritionally unremarkable. Height 5 ft 10 in Weight 106.7 kg [place] Body Weight (kg) 68.18 BMI 33.7 Weight change and time frame No body weight change reported in 1 week. Weight Status Obese Subjective/Other Information RD consult for routine F/U on TF tolerance. TF continues as prescribed and well tolerated, according to RN over the phone. Pt continues on Mechanical ventilation. Percent of energy/protein needs met: Prescribed Nepro w/CARBSTEADY @ 37 ml/hr provides for energy /protein needs (1,598 Kcal/72 g) during LOS, 100% Kcal; 100% AA. Burn Absent Trauma Absent GI Symptoms None Food Allergy No Skin Integrity/Comment Clear, warm, dry. Current % PO Other Minimum of two criteria No #1 Nutrition Diagnosis Inadequate oral intake Diagnosis Progress(for reassessment Continues documentation) Is patient on ventilator? Yes Is Patient Ambulatory and/or Out of Bed No REE-([place]-St. Jeor-confined to bed) 2022.848 Kcal/Kg value to use for calculation 15 Approximate Energy Requirements Using 1601 kcal/Kg Calculation Used for Recommendations Kcal/kg Additional Notes Protein: 0.8-1.2 g/Kg IBW; 70- 105 g/day. Fluids: 1 ml/Kcal, or as per MD. Nutrition Intervention Nutrition Support: Continue Nepro w/CARBSTEADY @ 37 ml/hr. Flush: 160 ml water Q 4 hr, or as per MD. Kcal 1,598 Protein (gm) 72 Carbohydrates (gm) 143 Fat (gm) 85 Fluid (mL) 646 Fiber (gm) 11 % RDI: 100% Kcal; 100% AA. Goal #1 Provide at least 75% of energy /protein needs through Enteral Feeding during LOS. Goal #2 Maintain body weight within +/ -3% of admission body weight during LOS. Follow-Up By: 11/15/21 Additional Comments Continue monitoring TF tolerance and BM.
--- NOTE | 2021-11-13 15:25 | Progress Note ---
Assessment and Plan Assessment: Acute Renal Failure secondary to Ischemic ATN secondary to Sepsis, Cardiac arrest and Hypotension S/P Cardiac Arrest Acute Hypoxemic Respiratory Failure Acute DVT Sepsis CHF Anemia Hyperkalemia Plan: Renal labs reviewed. Serum creatinine 1.6 today, yesterday's was 1.3, has good UOP of 1500 ml ARF likely secondary to Ischemic ATN No IVF as LVEF 25-30 % CXR showed- mild improving edema Was on Lasix 40 mg IV BID On Spironolactone 25 mg po daily DVT-S/P Heparin drip Sinus Tachycardia-S/P Amiodarone drip Hypernatremia- Sodium 146 today- start free water flush with 150 ml every 4 hours via tube feeds On D5W@ 42 ml/hr Anemia-transfuse as needed Obtain daily weights Strict I/O's daily Renally dose medications Avoid nephrotoxic agents Continue to monitor renal function Plan of care reviewed by Dr. Giordano Subjective Date of service: 11/13/21 Principal diagnosis: AHRF; Cardiac arrest; R. pneumothorax; pneumonia; AMS; DVT's; SIERRA; Obesity Interval history: Patient seen lying in bed. Has bipap mask on. No family at bedside. Objective - Vital Signs Vital signs: Vital Signs - 12hr 11/13/21 11/13/21 11/13/21 03:30 03:42 04:00 Temperature 100.0 F H Pulse Rate 81 Pulse Rate [ 88 From Monitor] Respiratory 33 H 25 H Rate Blood Pressure 120/69 O2 Sat by Pulse 100 100 Oximetry 11/13/21 11/13/21 11/13/21 04:01 04:20 04:30 Temperature Pulse Rate 89 82 81 Pulse Rate [ From Monitor] Respiratory 23 34 H 41 H Rate Blood Pressure 125/59 118/68 112/64 O2 Sat by Pulse 100 100 100 Oximetry 11/13/21 11/13/21 11/13/21 05:00 05:30 06:00 Temperature Pulse Rate 87 91 H 92 H Pulse Rate [ From Monitor] Respiratory 32 H 24 34 H Rate Blood Pressure 132/73 138/74 127/68 O2 Sat by Pulse 100 100 100 Oximetry 11/13/21 11/13/21 11/13/21 06:30 07:00 07:20 Temperature 99.4 F Pulse Rate 93 H 99 H Pulse Rate [ From Monitor] Respiratory 34 H 33 H Rate Blood Pressure 125/72 129/72 O2 Sat by Pulse 100 99 Oximetry 11/13/21 11/13/21 11/13/21 07:30 07:31 08:00 Temperature Pulse Rate 104 H 102 H 104 H Pulse Rate [ 86 From Monitor] Respiratory 34 H 33 H 34 H Rate Blood Pressure 141/78 136/68 140/68 O2 Sat by Pulse 99 100 97 Oximetry 11/13/21 11/13/21 11/13/21 08:30 09:01 09:30 Temperature Pulse Rate 104 H 111 H 145 H Pulse Rate [ From Monitor] Respiratory 35 H 34 H 32 H Rate Blood Pressure 124/70 124/70 141/68 O2 Sat by Pulse 98 97 96 Oximetry 11/13/21 11/13/21 11/13/21 10:00 10:16 10:30 Temperature Pulse Rate 145 H 143 H 137 H Pulse Rate [ From Monitor] Respiratory 36 H 33 H Rate Blood Pressure 155/85 140/81 140/81 O2 Sat by Pulse 98 100 Oximetry 11/13/21 11/13/21 11/13/21 11:00 11:21 11:30 Temperature 98.5 F Pulse Rate 141 H 135 H Pulse Rate [ From Monitor] Respiratory 37 H 25 H Rate Blood Pressure 106/53 104/54 O2 Sat by Pulse 99 100 Oximetry 11/13/21 11/13/21 11/13/21 12:00 12:30 13:00 Temperature Pulse Rate 129 H 131 H 128 H Pulse Rate [ From Monitor] Respiratory 35 H 32 H 35 H Rate Blood Pressure 104/61 103/67 94/61 O2 Sat by Pulse 100 100 100 Oximetry 11/13/21 11/13/21 11/13/21 13:14 13:30 14:00 Temperature Pulse Rate 130 H 129 H 131 H Pulse Rate [ From Monitor] Respiratory 32 H 37 H 41 H Rate Blood Pressure 102/66 109/67 129/60 O2 Sat by Pulse 98 98 98 Oximetry 11/13/21 11/13/21 14:30 15:08 Temperature Pulse Rate 131 H 128 H Pulse Rate [ From Monitor] Respiratory 40 H 33 H Rate Blood Pressure 115/74 110/74 O2 Sat by Pulse 98 98 Oximetry - General Appearance General appearance: well-developed, appears stated age, obese, fatigue EENT: ATNC, hearing intact Neck: no JVD, supple Respiratory: Present: Decreased Breath Sounds, Other (Bipap) Cardiology: S1S2 Gastrointestinal: normoactive bowel sounds Integumentary: warm and dry ( ) Neurologic: other (Awake) Musculoskeletal: joint swelling - Lab 11/13/21 04:17 11/13/21 04:17 Most recent lab results ABG pH 7.475 pH Units (7.350-7.450) H 11/11/21 13:53 ABG pCO2 45.0 mm Hg 11/11/21 13:53 ABG pO2 64.1 mm Hg (80.0-90.0) L 11/11/21 13:53 ABG HCO3 32.4 mmol/L (20.0-26.0) H 11/11/21 13:53 ABG O2 Saturation 96.3 % (95.0-99.0) 11/11/21 13:53 Calcium 7.9 mg/dL (8.4-10.2) L 11/13/21 04:17 Phosphorus 5.10 mg/dL (2.5-4.5) H D 11/13/21 04:17 Magnesium 2.10 mg/dL (1.7-2.3) 11/13/21 04:17 Urine Creatinine 190.9 mg/dL (0.1-20.0) H 11/04/21 Unknown Urine Sodium 10 mmol/L 11/04/21 Unknown Urine Total Protein 172 mg/dL (5-11.8) H 11/04/21 Unknown Medications & Allergies - Medications Allergies/Adverse Reactions: Allergies No Known Allergies Allergy (Verified 10/29/21 14:01) Home Medications: Home Medications Medication Instructions Recorded Confirmed Last Taken Type Unobtainable 11/10/21 11/10/21 Unknown History Active Medications: Generic Name Dose Route Start Last Admin Trade Name Freq PRN Reason Stop Dose Admin Acetaminophen 650 mg 10/29/21 17:04 11/11/21 13:35 Acetaminophen 325 Mg Tab PO 650 mg Q6H PRN Administration Pain, Mild (1-3) Acetaminophen 650 mg 10/29/21 17:04 11/12/21 22:53 Acetaminophen 650 Mg Rect Supp HI 650 mg Q6H PRN Administration Pain MILD(1-3)/Fever >100.5/NIEVES Amiodarone HCl 200 mg 11/08/21 10:00 11/13/21 10:16 Amiodarone 200 Mg Tab PO 200 mg QDAY RAMON Administration Lipase/Protease/Amylase 1 each 10/31/21 08:56 Lipase 10,500/Protease 25,000/Amylase 43,750 (Units) Dr Ivory FEEDTUBE PRN PRN For Clogged Feeding Tube Dextrose 0 ml 11/04/21 13:48 11/12/21 05:45 Dextrose 10% *Hypoglycemia IV 50 ml PRN PRN Administration Hypoglycemia Famotidine 10 mg 11/06/21 10:00 11/13/21 10:16 Famotidine 10 Mg Tab PO 10 mg BID RAMON Administration Fentanyl 50 mcg 11/04/21 14:32 11/09/21 00:01 Fentanyl 100 Mcg/2 Ml Inj IV 50 mcg Q2H PRN Administration Pain, Moderate (4-6) Hydralazine HCl 50 mg 11/09/21 14:00 11/12/21 22:29 Hydralazine 25 Mg Tab PO Not Given Q8HR RAMON Hydralazine HCl 10 mg 11/09/21 13:05 Hydralazine 20 Mg/1 Ml Inj IV Q4HR PRN Hypertension Hydrophilic Ointment 1 applic 10/29/21 14:29 11/09/21 08:51 Lip Therapy Vaseline TP 1 applic Q2HR PRN Administration Dry Lips NORepinephrine/NS 8 MG-250 ML 8 mg in 250 mls @ 3.75 mls/hr 10/29/21 15:00 11/04/21 07:00 Norepinephrine/Ns 8 Mg-250 Ml (Double Conc) IV 0 mcg/min TITRATE RAMON 0 mls/hr Titration Protocol 2 MCG/MIN Dexmedetomidine HCl 400 mcg/ 100 mls @ 5.335 mls/hr 11/11/21 21:00 11/13/21 11:30 Sodium Chloride IV 0.5 mcg/kg/hr TITRATE RAMON 13.338 mls/hr Administration Protocol 0.2 MCG/KG/HR Dextrose 1,000 mls @ 42 mls/hr 11/12/21 13:00 11/12/21 13:07 D5w IV 42 mls/hr DIRECT RAMON Administration Sodium Chloride 500 mls @ 0 mls/hr 11/12/21 20:00 Nacl 0.9% 500 Ml IV ONCE RAMON Per Protocol Insulin Glargine 10 units 11/13/21 22:00 Insulin Glargine 100 Units/Ml SUB-Q QHS [facility] Insulin Human Lispro 0 unit 10/30/21 16:00 11/13/21 05:23 Insulin Lispro 100 Unit/Ml SUB-Q Not Given Q6HR [facility] Protocol Isosorbide Mononitrate 30 mg 11/08/21 10:00 11/13/21 10:16 Isosorbide Mononitrate Er 30 Mg Tab PO 30 mg QDAY RAMON Administration Metoprolol Tartrate 50 mg 11/07/21 12:00 11/13/21 05:23 Metoprolol Tartrate 50 Mg Tab FEEDTUBE Not Given Q6H [facility] Multi-Ingred Cream/Lotion/Oil/Oint 1 applic 10/29/21 14:29 11/06/21 09:25 Mineral Oil/Petrolatum, White Ophth Oint 3.5 Gm OU 1 applic Q4HR PRN Administration Dry Eye(s) Senna/Docusate Sodium 1 tab 10/29/21 15:00 11/13/21 10:16 Sennosides/Docusate Sodium 8.6/50 Mg Tab FEEDTUBE 1 tab BID RAMON Administration Simple Syrup 15 ml 10/31/21 08:56 Simple Syrup 15 Ml FEEDTUBE PRN PRN Hypoglycemia Simple Syrup 30 ml 10/31/21 08:56 Simple Syrup 15 Ml FEEDTUBE PRN PRN Hypoglycemia Sodium Bicarbonate 325 mg 10/31/21 08:56 Sodium Bicarbonate 325 Mg Tab FEEDTUBE PRN PRN For Clogged Feeding Tube Sodium Chloride 10 ml 10/29/21 22:00 11/12/21 22:29 Sodium Chloride 0.9% 10 Ml Flush Syringe IV Not Given BID RAMON Sodium Chloride 10 ml 10/29/21 17:04 Sodium Chloride 0.9% 10 Ml Flush Syringe IV PRN PRN LINE FLUSH Spironolactone 25 mg 11/10/21 10:00 11/13/21 10:16 Spironolactone 25 Mg Tab PO 25 mg QDAY RAMON Administration
--- NOTE | 2021-11-13 16:05 | Progress Note ---
Assessment and Plan Assessment: Cardiopulmonary Arrest NSTEMI Acute Respiratory Failure Sepsis s/p Shock Aspiration PNA R PTX (s/p pleural drain placement) Acute Bilateral DVTs (on heparin gtt) Severe Anemia Retroperitoneal Hematoma PAFlutter w RVR (maintaining SR) Acute HFrEF CMP (EF 25-30% on echo this admission) SIERRA Transaminitis Obesity Plan: Will restart IV Amio gtt and add IV Lopressor with hold parameters while pt remains NPO. Once functional NGT established, will transition back to PO. Heparin gtt is on hold in the setting of anemia requiring pRBC transfusion (secondary to retroperitoneal hematoma). Vasc Surg following. No indication for IVC filter at this time. Pt seen in conjunction with Dr. Sara Cueto, who agrees with the assessment and plan of care. - Patient Problems (1) Cardiopulmonary arrest Current Visit: Yes Status: Acute (2) Aspiration pneumonia Current Visit: Yes Status: Acute (3) Paroxysmal atrial flutter Current Visit: Yes Status: Acute Subjective Date of service: 11/13/21 Principal diagnosis: Cardiopulmonary Arrest Interval history: Stated she was weak and wanted to eat upon assessment. Was on NC but later noted to be tachypneic and started on BiPAP. Back in AF 120-130s on tele. Objective Last Vital Signs Temp 98.5 F 11/13/21 11:21 Pulse 128 H 11/13/21 15:08 Resp 33 H 11/13/21 15:08 BP 110/74 11/13/21 15:08 Pulse Ox 98 11/13/21 15:08 - Physical Examination General: No Apparent Distress HEENT: Positive: EOMI, Normocephaly Neck: Negative: JVD/HJR Cardiac: Positive: irregularly irregular Lungs: Positive: Decreased Breath Sounds Neuro: Positive: Grossly Intact Abdomen: Positive: Soft Skin: Negative: Rash Musculoskeletal: No Pain Extremities: Present: edema, warm - Labs and Meds CBC 11/12/21 11/13/21 11/13/21 Range/Units 19:14 00:13 04:17 WBC 23.8 H (4.5-11.0) K/mm3 RBC 2.84 L (3.65-5.03) M/mm3 Hgb 6.2 L 7.4 L 7.8 L (10.1-14.3) gm/dl Hct 19.5 L* 23.3 L 24.9 L (30.3-42.9) % Plt Count 262 (140-440) K/mm3 Comprehensive Metabolic Panel 11/13/21 Range/Units 04:17 Sodium 146 H (137-145) mmol/L Potassium 4.6 (3.6-5.0) mmol/L Chloride 107.0 (98-107) mmol/L Carbon Dioxide 25 D (22-30) mmol/L BUN 44 H (7-17) mg/dL Creatinine 1.6 H (0.6-1.2) mg/dL Glucose 144 H (65-100) mg/dL Calcium 7.9 L (8.4-10.2) mg/dL - Imaging and Cardiology EKG: report reviewed, image reviewed Echo: report reviewed - Telemetry EKG Rhythm: Atrial Fibrillation - EKG Sinus rhythms and dysrhythmias: sinus rhythm Ventricular dysrhythmias: ventricular premature com Repolarization changes or abnormalities: nonspecific abnormality, ST segment, and/or T wave Myocardial infarction: septal PA (old age or ind - Allied health notes Allied health notes reviewed: nursing
[2021-11-13 16:46] LABS: Hematocrit 20.3 % (30.3-42.9); Hemoglobin 6.5 gm/dl (10.1-14.3)
[2021-11-13] MEDS ORDERED: AMIODARONE 900 MG in DEXTROSE 5% IN WATER 482 ML IV SCH (17:00)
[2021-11-13] MEDS ORDERED: SODIUM CHLORIDE 0.9% 500 ML 500 ML IV NR (17:14)
--- NOTE | 2021-11-13 18:11 | Event Note ---
Date: 11/13/21 Placed a call and spoke with patient's daughter, Eva Brown at , who added her aunt to call. The patient's current condition, recent events, and CT Abd/Pelvis result and plan of care were thoroughly discussed. All questions and concerns were addressed at this time. Team will continue to follow up with any further updates. +30 min CCT
[2021-11-13] MEDS: METOPROLOL TARTRATE 5 MG/5 ML INJ IV SCH (19:07)
[2021-11-13] MEDS ORDERED: INSULIN GLARGINE 100 UNITS/ML SUB-Q SCH (22:00)
[2021-11-14] MEDS: METOPROLOL TARTRATE 5 MG/5 ML INJ IV SCH ×2 (00:10→06:40)
[2021-11-14] MEDS: METOPROLOL TARTRATE 50 MG TAB FEEDTUBE SCH ×5 (00:10→17:46)
[2021-11-14] MEDS: INSULIN GLARGINE 100 UNITS/ML SUB-Q SCH ×2 (00:10→21:41)
[2021-11-14] MEDS: INSULIN LISPRO 100 UNIT/ML SUB-Q SCH ×4 (00:12→17:17)
[2021-11-14 06:01] LABS: Hematocrit 24.5 % (30.3-42.9); Hemoglobin 8.3 gm/dl (10.1-14.3); Mean Corpuscular HGB Conc 34 % (30-34); Mean Corpuscular Volume 86 fl (79-97); Platelet Count 260 K/mm3 (140-440); Red Blood Count 2.86 M/mm3 (3.65-5.03); Red Cell Distribution Width 14.8 % (13.2-15.2)
[2021-11-14] MEDS ORDERED: FUROSEMIDE 40 MG/4 ML INJ IV SCH (10:00)
[2021-11-14] MEDS: FAMOTIDINE 10 MG TAB PO SCH ×2 (10:16→21:41)
[2021-11-14] MEDS: SENNOSIDES/DOCUSATE SODIUM 8.6/50 MG TAB FEEDTUBE SCH ×2 (10:17→21:42)
[2021-11-14] MEDS: SPIRONOLACTONE 25 MG TAB PO SCH (10:19)
[2021-11-14] MEDS: AMIODARONE 200 MG TAB PO SCH (11:31)
--- NOTE | 2021-11-14 11:38 | Progress Note ---
Assessment and Plan Patient is a 66-year-old female with unknown past medical history brought into the ED following outside of hospital cardiac arrest thought to be PEA with thought to have downtime of 7 to 9 minutes however details are unclear S/P PEA cardiopulmonary arrest-No longer on pressors Acute hypoxic respiratory failure-pulm following Septic shock Aspiration pneumonia Atrial flutter w/ RVR- currently sinus rhythm Pneumothorax- s/p CT Acute DVT-on Heparin gtt Hypokalemia Transaminitis Retroperitoneal Hematoma Echo 10/30/2021-technically difficult study due to body habitus. EF 25 to 30%. Right ventricular systolic function is normal. No pericardial effusion Plan: Continue metoprolol 50 mg p.o. every 6 hours and hydralazine 50mg PO TID Resume amio 200mg PO QD, No LAYO/ ARB due to elevated creatinine Heparin gtt is on hold in the setting of anemia requiring pRBC transfusion (secondary to retroperitoneal hematoma) Patient seen in conjunction with Dr. Johnson who agrees with this plan of care - Patient Problems (1) Cardiopulmonary arrest Current Visit: Yes Status: Acute (2) Hypokalemia Current Visit: Yes Status: Acute (3) Transaminitis Current Visit: Yes Status: Acute (4) Aspiration pneumonia Current Visit: Yes Status: Acute (5) Acute hypoxemic respiratory failure Current Visit: Yes Status: Acute (6) Septic shock Current Visit: Yes Status: Acute (7) Toxic metabolic encephalopathy Current Visit: Yes Status: Acute (8) Shock liver Current Visit: Yes Status: Acute Subjective Date of service: 11/14/21 Principal diagnosis: Cardiopulmonary Arrest Interval history: Patient resting in bed in no acute distress. Patient currently on nasal cannula Patient sinus tach rate trending 110s Objective Vital Signs Temp Pulse Pulse Resp BP Pulse Ox 11/14/21 11:12 100 H 31 H 104/63 100 11/14/21 11:00 68 12 104/63 100 11/14/21 10:30 75 32 H 115/72 100 11/14/21 10:00 80 34 H 124/80 100 11/14/21 09:47 90 45 H 171/91 99 11/14/21 09:30 112 H 49 H 158/97 95 11/14/21 09:00 133/74 99 11/14/21 08:30 106 H 36 H 136/83 99 11/14/21 08:00 99.9 F H 103 H 106 H 43 H 123/78 100 11/14/21 07:30 103 H 39 H 120/77 100 11/14/21 07:26 97 11/14/21 07:00 100 H 31 H 103/66 99 11/14/21 06:30 101 H 31 H 105/68 99 11/14/21 06:27 101 H 112/69 11/14/21 06:00 103 H 28 H 113/71 99 11/14/21 05:30 106 H 35 H 125/78 98 11/14/21 05:00 104 H 37 H 118/80 99 11/14/21 04:30 104 H 34 H 112/75 99 11/14/21 04:00 100.0 F H 105 H 106 H 38 H 126/80 98 11/14/21 03:30 106 H 37 H 129/77 98 11/14/21 03:09 98.9 F 106 H 37 H 130/83 98 11/14/21 03:08 106 H 36 H 130/83 98 11/14/21 03:00 108 H 31 H 99/64 98 11/14/21 02:39 105 H 34 H 111/71 99 11/14/21 02:30 105 H 34 H 111/71 99 11/14/21 02:09 104 H 32 H 104/68 98 11/14/21 02:00 104 H 32 H 104/68 98 11/14/21 01:39 99.6 F 106 H 32 H 112/66 100 11/14/21 01:30 106 H 32 H 112/66 99 11/14/21 01:05 99.8 F H 104 H 20 94/56 99 11/14/21 01:00 104 H 20 94/56 99 11/14/21 00:30 114 H 34 H 119/72 98 11/14/21 00:15 115 H 122/72 11/14/21 00:10 115 H 122/72 11/14/21 00:00 98.4 F 119 H 104 H 32 H 132/67 99 11/13/21 23:46 99.9 F H 116 H 35 H 132/67 97 11/13/21 23:40 119 H 45 H 151/77 95 11/13/21 23:30 116 H 39 H 151/77 98 11/13/21 23:00 120 H 46 H 136/70 98 11/13/21 22:35 99.8 F H 120 H 46 H 136/70 98 11/13/21 22:30 116 H 44 H 131/73 99 11/13/21 22:05 99.1 F 120 H 45 H 132/71 97 11/13/21 22:00 120 H 45 H 132/71 97 11/13/21 21:35 98.9 F 118 H 41 H 128/70 99 11/13/21 21:30 118 H 41 H 128/70 98 11/13/21 21:10 99.6 F 119 H 26 H 148/69 99 11/13/21 21:05 99.6 F 119 H 26 H 148/69 99 11/13/21 21:00 119 H 40 H 132/73 99 11/13/21 20:45 99 F 118 H 24 132/73 100 11/13/21 20:30 120 H 43 H 125/65 99 11/13/21 20:00 99.0 F 119 H 119 H 47 H 132/73 100 11/13/21 19:40 99 11/13/21 19:30 115 H 46 H 133/72 99 11/13/21 19:07 128 H 126/69 11/13/21 19:00 126 H 44 H 130/60 97 11/13/21 18:30 125 H 46 H 106/54 98 11/13/21 18:00 127 H 33 H 128/64 97 11/13/21 17:30 128 H 39 H 126/75 100 11/13/21 17:06 101.0 F H 11/13/21 17:00 125 H 32 H 114/70 100 11/13/21 16:30 123 H 35 H 101/64 99 11/13/21 16:00 128 H 127 H 37 H 106/70 99 11/13/21 15:30 126 H 41 H 121/68 98 11/13/21 15:08 128 H 33 H 110/74 98 11/13/21 15:00 128 H 35 H 114/71 99 11/13/21 14:30 131 H 40 H 115/74 98 11/13/21 14:00 131 H 41 H 129/60 98 11/13/21 13:30 129 H 37 H 109/67 98 11/13/21 13:14 130 H 32 H 102/66 98 11/13/21 13:00 128 H 35 H 94/61 100 11/13/21 12:30 131 H 32 H 103/67 100 11/13/21 12:00 129 H 144 H 35 H 104/61 100 - Physical Examination General: No Apparent Distress HEENT: Positive: EOMI, Normocephaly Neck: Negative: JVD/HJR Cardiac: Positive: Regular Rhythm, Tachycardia Lungs: Positive: Decreased Breath Sounds Neuro: Positive: Grossly Intact Abdomen: Positive: Soft Skin: Negative: Rash Musculoskeletal: No Pain Extremities: Present: edema, warm - Labs and Meds CBC 11/13/21 11/14/21 Range/Units 16:01 04:55 WBC 23.9 H (4.5-11.0) K/mm3 RBC 2.86 L (3.65-5.03) M/mm3 Hgb 6.5 L 8.3 L (10.1-14.3) gm/dl Hct 20.3 L 24.5 L (30.3-42.9) % Plt Count 260 (140-440) K/mm3 Comprehensive Metabolic Panel 11/14/21 Range/Units 04:55 Sodium 148 H (137-145) mmol/L Potassium 3.6 D (3.6-5.0) mmol/L Chloride 109.0 H (98-107) mmol/L Carbon Dioxide 26 (22-30) mmol/L BUN 42 H (7-17) mg/dL Creatinine 1.6 H (0.6-1.2) mg/dL Glucose 184 H (65-100) mg/dL Calcium 8.0 L (8.4-10.2) mg/dL - Imaging and Cardiology EKG: report reviewed, image reviewed Echo: report reviewed - Telemetry EKG Rhythm: Sinus Tachycardia - EKG Sinus rhythms and dysrhythmias: sinus rhythm, sinus tachycardia Ventricular dysrhythmias: ventricular premature com Repolarization changes or abnormalities: nonspecific abnormality, ST segment, and/or T wave Myocardial infarction: septal [place] (old age or ind - Allied health notes Allied health notes reviewed: nursing
--- NOTE | 2021-11-14 12:14 | Progress Note ---
Assessment and Plan Acute hypoxemic respiratory failure on MVS Cardiac arrest with ROSC Acute DVT Right pneumothorax Shock (septic +/- cardiogenic) Possible aspiration pneumonia SIERRA Altered mental status/acute encephalopathy Elevated serum transaminases, likely shock liver Metabolic acidosis Obesity Retro-peritoneal Hematoma Leukocytosis Hypokalemia Lactic acidosis - follow doppler result +/- IVC filter - xanax 0.25 mg p.o. q8h scheduled - repeat CXR in am - s/p 2 units PRBC's yesterday; trend H&H - continue to hold anticoagulation re Retroperitoneal Hematoma - wean off Precedex - continue care as below otherwise; - prn vasopressors for target MAP > 65 mmHg - continue BIPAP scheduled qhs with prn daytime use - continue to wean supplemental oxygen for target O2 sat's > 90% acutely - aspiration precautions - continue bronchodilators with pulmonary hygiene per RT - continue accuchecks with glycemic control per SSI (While critically ill target blood glucose of 140-180 mg/dL; avoid hypoglycemia) - sedation prn for target RASS 0 to -1 - avoid nephrotoxins, renally dose all medications - continue to avoid benzodiazepine's, reduce the possibility of delirium - AB's per ID rec's - prn analgesia per CPOT score - Maintenance of sleep-wake cycle, avoid delirium - continue enteral nutritional support at goal rate as tolerated - G.I. & VTE prophylaxis - PT/OT/ROM exercises - continue mobility protocols for pressure ulcer prophylaxis - Monitor hemodynamics closely - continue other care per attending / other consultants - discharge planning ongoing concurrently COVID SPECIFIC INTERVENTIONS - COVID-19 PCR negative .... Re-evaluate in am & prn .. tentative transfer to [facility] CONDITION: CRITICAL PROGNOSIS: GUARDED CODE STATUS: FULL CODE The high probability of a clinically significant, sudden or life-threatening deterioration of the [respiratory, cardiovascular, renal & neurologic] system(s) required my full and direct attention, intervention and personal management. The aggregate critical care time was [34] minutes without overlap. Time includes spent on; [x] Data Review and interpretation [x] Patient assessment and monitoring of vital signs [x] Documentation [x] Medication orders and management Subjective Date of service: 11/14/21 Principal diagnosis: AHRF; Cardiac arrest; R. pneumothorax; pneumonia; AMS; DVT's; SIERRA; Obesity Interval history: Patient is seen today for: Acute hypoxemic respiratory failure; Cardiac arrest with ROSC; Right pneumothorax; pneumonia; AMS; bilateral DVT's; SIERRA; Obesity Seen and examined at bedside; 24hour events reviewed; nursing and respiratory care staff consulted; no adverse overnight events reported to me; resting peacefully in bed; tolerating qhs BIPAP; responds appropriately; denies acute chest pains; failed last swallow evaluation; denies N/V/F/C; anxious Objective Vital Signs - 12hr 11/14/21 11/14/21 11/14/21 00:15 00:30 01:00 Temperature Pulse Rate 115 H 114 H 104 H Pulse Rate [ From Monitor] Respiratory 34 H 20 Rate Blood Pressure 122/72 119/72 94/56 O2 Sat by Pulse 98 99 Oximetry 11/14/21 11/14/21 11/14/21 01:05 01:30 01:39 Temperature 99.8 F H 99.6 F Pulse Rate 104 H 106 H 106 H Pulse Rate [ From Monitor] Respiratory 20 32 H 32 H Rate Blood Pressure 94/56 112/66 112/66 O2 Sat by Pulse 99 99 100 Oximetry 11/14/21 11/14/21 11/14/21 02:00 02:09 02:30 Temperature Pulse Rate 104 H 104 H 105 H Pulse Rate [ From Monitor] Respiratory 32 H 32 H 34 H Rate Blood Pressure 104/68 104/68 111/71 O2 Sat by Pulse 98 98 99 Oximetry 11/14/21 11/14/21 11/14/21 02:39 03:00 03:08 Temperature Pulse Rate 105 H 108 H 106 H Pulse Rate [ From Monitor] Respiratory 34 H 31 H 36 H Rate Blood Pressure 111/71 99/64 130/83 O2 Sat by Pulse 99 98 98 Oximetry 11/14/21 11/14/21 11/14/21 03:09 03:30 04:00 Temperature 98.9 F 100.0 F H Pulse Rate 106 H 106 H 105 H Pulse Rate [ 106 H From Monitor] Respiratory 37 H 37 H 38 H Rate Blood Pressure 130/83 129/77 126/80 O2 Sat by Pulse 98 98 98 Oximetry 11/14/21 11/14/21 11/14/21 04:30 05:00 05:30 Temperature Pulse Rate 104 H 104 H 106 H Pulse Rate [ From Monitor] Respiratory 34 H 37 H 35 H Rate Blood Pressure 112/75 118/80 125/78 O2 Sat by Pulse 99 99 98 Oximetry 11/14/21 11/14/21 11/14/21 06:00 06:27 06:30 Temperature Pulse Rate 103 H 101 H 101 H Pulse Rate [ From Monitor] Respiratory 28 H 31 H Rate Blood Pressure 113/71 112/69 105/68 O2 Sat by Pulse 99 99 Oximetry 11/14/21 11/14/21 11/14/21 07:00 07:26 07:30 Temperature Pulse Rate 100 H 103 H Pulse Rate [ From Monitor] Respiratory 31 H 39 H Rate Blood Pressure 103/66 120/77 O2 Sat by Pulse 99 97 100 Oximetry 11/14/21 11/14/21 11/14/21 08:00 08:30 09:00 Temperature 99.9 F H Pulse Rate 103 H 106 H Pulse Rate [ 106 H From Monitor] Respiratory 43 H 36 H Rate Blood Pressure 123/78 136/83 133/74 O2 Sat by Pulse 100 99 99 Oximetry 11/14/21 11/14/21 11/14/21 09:30 09:47 10:00 Temperature Pulse Rate 112 H 90 80 Pulse Rate [ From Monitor] Respiratory 49 H 45 H 34 H Rate Blood Pressure 158/97 171/91 124/80 O2 Sat by Pulse 95 99 100 Oximetry 11/14/21 11/14/21 11/14/21 10:30 11:00 11:12 Temperature Pulse Rate 75 68 100 H Pulse Rate [ From Monitor] Respiratory 32 H 12 31 H Rate Blood Pressure 115/72 104/63 104/63 O2 Sat by Pulse 100 100 100 Oximetry 11/14/21 11/14/21 11:30 12:00 Temperature Pulse Rate 68 71 Pulse Rate [ 106 H From Monitor] Respiratory 30 H 35 H Rate Blood Pressure 103/65 120/75 O2 Sat by Pulse 100 100 Oximetry Constitutional: appears uncomfortable, other (elderly obese female with mildly increased respiratory effort at rest on BIPAP) Eyes: non-icteric, other (+ mild periorbital phymosis) ENT: oropharynx moist, oropharyngeal exudate pre (moderate) Neck: supple, no lymphadenopathy, no JVD Effort: mildly labored Ascultation: Bilateral: diminished breath sounds, rhonchi Percussion: Bilateral: not dull Cardiovascular: irregular rhythm, other (no R/M) Gastrointestinal: normoactive bowel sounds, soft, non-tender, other (obese) Integumentary: normal, other (Left flank ecchymosis with induration) Extremities: no cyanosis, pulses normal, no ischemia or petechiae, edema (2+) Neurologic: normal mental status, non-focal exam (grossly), pupils equal and round, motor strength normal and (weak) Psychiatric: anxious CBC and BMP: 11/14/21 04:55 11/14/21 04:55 ABG, PT/INR, D-dimer: ABG ABG pH 7.475 pH Units (7.350-7.450) H 11/11/21 13:53 ABG pCO2 45.0 mm Hg 11/11/21 13:53 ABG pO2 64.1 mm Hg (80.0-90.0) L 11/11/21 13:53 ABG O2 Saturation 96.3 % (95.0-99.0) 11/11/21 13:53 PT/INR, D-dimer PT 17.2 Sec. (12.2-14.9) H 10/30/21 16:30 INR 1.27 (0.87-1.13) H 10/30/21 16:30 D-Dimer > 85464 ng/mlDDU (0-234) H 10/30/21 Unknown Abnormal lab findings: Abnormal Labs 10/29/21 10/29/21 10/29/21 15:10 15:10 15:10 WBC 27.8 H RBC Hgb Hct MCH 27 L RDW Plt Count Lymph % (Auto) Lymph # (Auto) [place] # (Auto) Seg Neutrophils % Seg Neuts % (Manual) 78.0 H Lymphocytes % (Manual) 10.0 L Nucleated RBC % Seg Neutrophils # Seg Neutrophils # Man 21.7 H Monocytes # (Manual) 1.4 H PT INR APTT D-Dimer Heparin Anti-Xa Level ABG pH ABG pO2 ABG HCO3 ABG O2 Saturation ABG Base Excess ABG Hemoglobin Oxyhemoglobin Sodium Potassium Chloride Carbon Dioxide BUN Creatinine Glucose POC Glucose Hemoglobin A1c Lactic Acid 6.80 H* Calcium Phosphorus Magnesium Ferritin AST ALT Alkaline Phosphatase Lactate Dehydrogenase Troponin T 0.089 H C-Reactive Protein Total Protein Albumin LDL Cholesterol Direct Urine Creatinine Urine Total Protein Salicylates Acetaminophen Crossmatch 10/29/21 10/29/21 10/29/21 15:10 15:10 15:10 WBC RBC Hgb Hct MCH RDW Plt Count Lymph % (Auto) Lymph # (Auto) [place] # (Auto) Seg Neutrophils % Seg Neuts % (Manual) Lymphocytes % (Manual) Nucleated RBC % Seg Neutrophils # Seg Neutrophils # Man Monocytes # (Manual) PT INR APTT D-Dimer Heparin Anti-Xa Level ABG pH ABG pO2 ABG HCO3 ABG O2 Saturation ABG Base Excess ABG Hemoglobin Oxyhemoglobin Sodium 136 L Potassium 2.8 L* Chloride 93.4 L Carbon Dioxide 20 L BUN Creatinine Glucose 330 H POC Glucose Hemoglobin A1c Lactic Acid Calcium Phosphorus Magnesium Ferritin AST 1013 H ALT 1289 H Alkaline Phosphatase 246 H Lactate Dehydrogenase Troponin T C-Reactive Protein Total Protein Albumin LDL Cholesterol Direct Urine Creatinine Urine Total Protein Salicylates < 0.3 L Acetaminophen 5.0 L Crossmatch 10/29/21 10/29/21 10/29/21 15:11 16:01 19:29 WBC RBC Hgb Hct MCH RDW Plt Count Lymph % (Auto) Lymph # (Auto) [place] # (Auto) Seg Neutrophils % Seg Neuts % (Manual) Lymphocytes % (Manual) Nucleated RBC % Seg Neutrophils # Seg Neutrophils # Man Monocytes # (Manual) PT INR APTT D-Dimer Heparin Anti-Xa Level ABG pH 7.307 L ABG pO2 64.1 L ABG HCO3 ABG O2 Saturation 90.8 L ABG Base Excess -2.9 L ABG Hemoglobin Oxyhemoglobin 89.3 L Sodium Potassium Chloride Carbon Dioxide BUN Creatinine Glucose POC Glucose Hemoglobin A1c Lactic Acid 2.60 H* Calcium Phosphorus Magnesium 2.90 H Ferritin AST ALT Alkaline Phosphatase Lactate Dehydrogenase Troponin T C-Reactive Protein Total Protein Albumin LDL Cholesterol Direct Urine Creatinine Urine Total Protein Salicylates Acetaminophen Crossmatch 10/29/21 10/29/21 10/30/21 19:40 22:34 04:30 WBC 16.2 H RBC Hgb Hct MCH 26 L RDW 15.5 H Plt Count Lymph % (Auto) 6.2 L Lymph # (Auto) 1.0 L [place] # (Auto) 0.9 H Seg Neutrophils % 88.1 H Seg Neuts % (Manual) Lymphocytes % (Manual) Nucleated RBC % Seg Neutrophils # 14.2 H Seg Neutrophils # Man Monocytes # (Manual) PT INR APTT D-Dimer Heparin Anti-Xa Level ABG pH ABG pO2 ABG HCO3 ABG O2 Saturation ABG Base Excess ABG Hemoglobin Oxyhemoglobin Sodium Potassium Chloride Carbon Dioxide BUN Creatinine Glucose POC Glucose Hemoglobin A1c Lactic Acid Calcium Phosphorus Magnesium Ferritin AST ALT Alkaline Phosphatase Lactate Dehydrogenase Troponin T 1.950 H* D 1.150 H* D C-Reactive Protein Total Protein Albumin LDL Cholesterol Direct 43 L Urine Creatinine Urine Total Protein Salicylates Acetaminophen Crossmatch 10/30/21 10/30/21 10/30/21 04:30 04:35 05:45 WBC RBC Hgb Hct MCH RDW Plt Count Lymph % (Auto) Lymph # (Auto) [place] # (Auto) Seg Neutrophils % Seg Neuts % (Manual) Lymphocytes % (Manual) Nucleated RBC % Seg Neutrophils # Seg Neutrophils # Man Monocytes # (Manual) PT INR APTT D-Dimer Heparin Anti-Xa Level ABG pH ABG pO2 69.5 L ABG HCO3 ABG O2 Saturation ABG Base Excess -2.7 L ABG Hemoglobin Oxyhemoglobin 94.7 L Sodium Potassium Chloride Carbon Dioxide 21 L BUN Creatinine Glucose 159 H POC Glucose 151 H Hemoglobin A1c Lactic Acid Calcium 7.9 L D Phosphorus Magnesium Ferritin AST 461 H ALT 686 H Alkaline Phosphatase 130 H Lactate Dehydrogenase Troponin T C-Reactive Protein Total Protein 5.6 L D Albumin 3.2 L LDL Cholesterol Direct Urine Creatinine Urine Total Protein Salicylates Acetaminophen Crossmatch 10/30/21 10/30/21 10/30/21 11:24 15:59 16:30 WBC RBC Hgb Hct MCH RDW Plt Count Lymph % (Auto) Lymph # (Auto) [place] # (Auto) Seg Neutrophils % Seg Neuts % (Manual) Lymphocytes % (Manual) Nucleated RBC % Seg Neutrophils # Seg Neutrophils # Man Monocytes # (Manual) PT 17.2 H INR 1.27 H APTT 44.4 H D-Dimer Heparin Anti-Xa Level ABG pH ABG pO2 ABG HCO3 ABG O2 Saturation ABG Base Excess ABG Hemoglobin Oxyhemoglobin Sodium Potassium Chloride Carbon Dioxide BUN Creatinine Glucose POC Glucose 153 H 109 H Hemoglobin A1c Lactic Acid Calcium Phosphorus Magnesium Ferritin AST ALT Alkaline Phosphatase Lactate Dehydrogenase Troponin T C-Reactive Protein Total Protein Albumin LDL Cholesterol Direct Urine Creatinine Urine Total Protein Salicylates Acetaminophen Crossmatch 10/30/21 10/30/21 10/30/21 23:00 Unknown Unknown WBC RBC Hgb Hct MCH RDW Plt Count Lymph % (Auto) Lymph # (Auto) [place] # (Auto) Seg Neutrophils % Seg Neuts % (Manual) Lymphocytes % (Manual) Nucleated RBC % Seg Neutrophils # Seg Neutrophils # Man Monocytes # (Manual) PT INR APTT D-Dimer > 30550 H Heparin Anti-Xa Level 0.82 H ABG pH ABG pO2 ABG HCO3 ABG O2 Saturation ABG Base Excess ABG Hemoglobin Oxyhemoglobin Sodium Potassium Chloride Carbon Dioxide BUN Creatinine Glucose POC Glucose Hemoglobin A1c Lactic Acid Calcium Phosphorus Magnesium Ferritin 208.4 H AST ALT Alkaline Phosphatase Lactate Dehydrogenase Troponin T C-Reactive Protein Total Protein Albumin LDL Cholesterol Direct Urine Creatinine Urine Total Protein Salicylates Acetaminophen Crossmatch 10/30/21 10/31/21 10/31/21 Unknown 04:30 04:30 WBC 14.4 H RBC Hgb Hct MCH 26 L RDW Plt Count Lymph % (Auto) Lymph # (Auto) [place] # (Auto) Seg Neutrophils % Seg Neuts % (Manual) Lymphocytes % (Manual) Nucleated RBC % Seg Neutrophils # Seg Neutrophils # Man Monocytes # (Manual) PT INR APTT D-Dimer Heparin Anti-Xa Level ABG pH ABG pO2 ABG HCO3 ABG O2 Saturation ABG Base Excess ABG Hemoglobin Oxyhemoglobin Sodium Potassium 3.5 L Chloride 107.5 H Carbon Dioxide 20 L BUN 28 H Creatinine 1.7 H Glucose 113 H POC Glucose Hemoglobin A1c Lactic Acid Calcium 7.9 L Phosphorus Magnesium Ferritin AST ALT Alkaline Phosphatase Lactate Dehydrogenase 469 H Troponin T C-Reactive Protein 13.40 H Total Protein Albumin LDL Cholesterol Direct Urine Creatinine Urine Total Protein Salicylates Acetaminophen Crossmatch 10/31/21 10/31/21 10/31/21 04:30 05:11 15:30 WBC RBC Hgb Hct MCH RDW Plt Count Lymph % (Auto) Lymph # (Auto) [place] # (Auto) Seg Neutrophils % Seg Neuts % (Manual) Lymphocytes % (Manual) Nucleated RBC % Seg Neutrophils # Seg Neutrophils # Man Monocytes # (Manual) PT INR APTT D-Dimer Heparin Anti-Xa Level ABG pH 7.222 L ABG pO2 61.5 L ABG HCO3 ABG O2 Saturation 86.2 L ABG Base Excess -6.3 L ABG Hemoglobin 11.2 L Oxyhemoglobin 84.5 L Sodium Potassium Chloride Carbon Dioxide BUN Creatinine Glucose POC Glucose 106 H Hemoglobin A1c 6.7 H Lactic Acid Calcium Phosphorus Magnesium Ferritin AST ALT Alkaline Phosphatase Lactate Dehydrogenase Troponin T C-Reactive Protein Total Protein Albumin LDL Cholesterol Direct Urine Creatinine Urine Total Protein Salicylates Acetaminophen Crossmatch 10/31/21 10/31/21 10/31/21 16:07 16:35 17:45 WBC RBC Hgb Hct MCH RDW Plt Count Lymph % (Auto) Lymph # (Auto) [place] # (Auto) Seg Neutrophils % Seg Neuts % (Manual) Lymphocytes % (Manual) Nucleated RBC % Seg Neutrophils # Seg Neutrophils # Man Monocytes # (Manual) PT INR APTT D-Dimer Heparin Anti-Xa Level ABG pH 7.267 L ABG pO2 58.3 L ABG HCO3 ABG O2 Saturation 88.3 L ABG Base Excess -5.9 L ABG Hemoglobin 10.1 L Oxyhemoglobin 86.5 L Sodium Potassium Chloride Carbon Dioxide BUN Creatinine Glucose POC Glucose 115 H Hemoglobin A1c Lactic Acid Calcium Phosphorus Magnesium Ferritin AST ALT Alkaline Phosphatase Lactate Dehydrogenase Troponin T C-Reactive Protein Total Protein Albumin LDL Cholesterol Direct Urine Creatinine 383.6 H Urine Total Protein Salicylates Acetaminophen Crossmatch 11/01/21 11/01/21 11/01/21 00:06 05:08 06:00 WBC 12.6 H RBC 3.43 L Hgb 8.9 L Hct 28.7 L MCH 26 L RDW 15.7 H Plt Count 130 L Lymph % (Auto) Lymph # (Auto) [place] # (Auto) Seg Neutrophils % Seg Neuts % (Manual) Lymphocytes % (Manual) Nucleated RBC % Seg Neutrophils # Seg Neutrophils # Man Monocytes # (Manual) PT INR APTT D-Dimer Heparin Anti-Xa Level ABG pH ABG pO2 ABG HCO3 ABG O2 Saturation ABG Base Excess ABG Hemoglobin Oxyhemoglobin Sodium Potassium Chloride Carbon Dioxide BUN Creatinine Glucose POC Glucose 114 H 120 H Hemoglobin A1c Lactic Acid Calcium Phosphorus Magnesium Ferritin AST ALT Alkaline Phosphatase Lactate Dehydrogenase Troponin T C-Reactive Protein Total Protein Albumin LDL Cholesterol Direct Urine Creatinine Urine Total Protein Salicylates Acetaminophen Crossmatch 11/01/21 11/01/21 11/01/21 06:00 11:43 14:00 WBC RBC Hgb Hct MCH RDW Plt Count Lymph % (Auto) Lymph # (Auto) [place] # (Auto) Seg Neutrophils % Seg Neuts % (Manual) Lymphocytes % (Manual) Nucleated RBC % Seg Neutrophils # Seg Neutrophils # Man Monocytes # (Manual) PT INR APTT D-Dimer Heparin Anti-Xa Level ABG pH 7.349 L ABG pO2 75.6 L ABG HCO3 ABG O2 Saturation ABG Base Excess -3.9 L ABG Hemoglobin 9.8 L Oxyhemoglobin 93.5 L Sodium Potassium Chloride 114.1 H Carbon Dioxide 20 L BUN 33 H Creatinine Glucose 131 H POC Glucose 151 H Hemoglobin A1c Lactic Acid Calcium 7.7 L Phosphorus Magnesium Ferritin AST 79 H ALT 259 H Alkaline Phosphatase Lactate Dehydrogenase Troponin T C-Reactive Protein Total Protein 5.5 L Albumin 2.7 L LDL Cholesterol Direct Urine Creatinine Urine Total Protein Salicylates Acetaminophen Crossmatch 11/01/21 11/01/21 11/02/21 16:45 22:55 05:12 WBC RBC Hgb Hct MCH RDW Plt Count Lymph % (Auto) Lymph # (Auto) [place] # (Auto) Seg Neutrophils % Seg Neuts % (Manual) Lymphocytes % (Manual) Nucleated RBC % Seg Neutrophils # Seg Neutrophils # Man Monocytes # (Manual) PT INR APTT D-Dimer Heparin Anti-Xa Level ABG pH ABG pO2 ABG HCO3 ABG O2 Saturation ABG Base Excess ABG Hemoglobin Oxyhemoglobin Sodium Potassium Chloride Carbon Dioxide BUN Creatinine Glucose POC Glucose 119 H 129 H 140 H Hemoglobin A1c Lactic Acid Calcium Phosphorus Magnesium Ferritin AST ALT Alkaline Phosphatase Lactate Dehydrogenase Troponin T C-Reactive Protein Total Protein Albumin LDL Cholesterol Direct Urine Creatinine Urine Total Protein Salicylates Acetaminophen Crossmatch 11/02/21 11/02/21 11/02/21 05:35 05:35 09:35 WBC 13.5 H RBC 3.60 L Hgb 9.7 L Hct MCH 27 L RDW 15.7 H Plt Count Lymph % (Auto) Lymph # (Auto) [place] # (Auto) Seg Neutrophils % Seg Neuts % (Manual) Lymphocytes % (Manual) Nucleated RBC % Seg Neutrophils # Seg Neutrophils # Man Monocytes # (Manual) PT INR APTT D-Dimer Heparin Anti-Xa Level ABG pH 7.208 L ABG pO2 75.9 L ABG HCO3 ABG O2 Saturation 93.6 L ABG Base Excess -4.3 L ABG Hemoglobin 9.1 L Oxyhemoglobin 91.6 L Sodium Potassium 5.2 H D Chloride 112.6 H Carbon Dioxide BUN 32 H Creatinine Glucose 152 H POC Glucose Hemoglobin A1c Lactic Acid Calcium 8.2 L Phosphorus Magnesium 2.70 H Ferritin AST ALT Alkaline Phosphatase Lactate Dehydrogenase Troponin T C-Reactive Protein Total Protein Albumin LDL Cholesterol Direct Urine Creatinine Urine Total Protein Salicylates Acetaminophen Crossmatch 11/02/21 11/02/21 11/02/21 11:44 17:13 23:43 WBC RBC Hgb Hct MCH RDW Plt Count Lymph % (Auto) Lymph # (Auto) [place] # (Auto) Seg Neutrophils % Seg Neuts % (Manual) Lymphocytes % (Manual) Nucleated RBC % Seg Neutrophils # Seg Neutrophils # Man Monocytes # (Manual) PT INR APTT D-Dimer Heparin Anti-Xa Level ABG pH ABG pO2 ABG HCO3 ABG O2 Saturation ABG Base Excess ABG Hemoglobin Oxyhemoglobin Sodium Potassium Chloride Carbon Dioxide BUN Creatinine Glucose POC Glucose 173 H 148 H 137 H Hemoglobin A1c Lactic Acid Calcium Phosphorus Magnesium Ferritin AST ALT Alkaline Phosphatase Lactate Dehydrogenase Troponin T C-Reactive Protein Total Protein Albumin LDL Cholesterol Direct Urine Creatinine Urine Total Protein Salicylates Acetaminophen Crossmatch 11/03/21 11/03/21 11/03/21 04:59 06:00 06:00 WBC RBC 3.43 L Hgb 9.1 L Hct 29.0 L MCH 26 L RDW 16.4 H Plt Count Lymph % (Auto) Lymph # (Auto) [place] # (Auto) Seg Neutrophils % Seg Neuts % (Manual) Lymphocytes % (Manual) Nucleated RBC % Seg Neutrophils # Seg Neutrophils # Man Monocytes # (Manual) PT INR APTT D-Dimer Heparin Anti-Xa Level 0.17 L ABG pH ABG pO2 ABG HCO3 ABG O2 Saturation ABG Base Excess ABG Hemoglobin Oxyhemoglobin Sodium Potassium Chloride Carbon Dioxide BUN Creatinine Glucose POC Glucose 167 H Hemoglobin A1c Lactic Acid Calcium Phosphorus Magnesium Ferritin AST ALT Alkaline Phosphatase Lactate Dehydrogenase Troponin T C-Reactive Protein Total Protein Albumin LDL Cholesterol Direct Urine Creatinine Urine Total Protein Salicylates Acetaminophen Crossmatch 11/03/21 11/03/21 11/03/21 06:00 09:20 11:58 WBC RBC Hgb Hct MCH RDW Plt Count Lymph % (Auto) Lymph # (Auto) [place] # (Auto) Seg Neutrophils % Seg Neuts % (Manual) Lymphocytes % (Manual) Nucleated RBC % Seg Neutrophils # Seg Neutrophils # Man Monocytes # (Manual) PT INR APTT D-Dimer Heparin Anti-Xa Level ABG pH 7.274 L ABG pO2 75.6 L ABG HCO3 ABG O2 Saturation 94.9 L ABG Base Excess -2.5 L ABG Hemoglobin 9.3 L Oxyhemoglobin 92.9 L Sodium 149 H Potassium Chloride 117.5 H Carbon Dioxide BUN 32 H Creatinine Glucose 173 H POC Glucose 192 H Hemoglobin A1c Lactic Acid Calcium 8.1 L Phosphorus Magnesium Ferritin AST ALT Alkaline Phosphatase Lactate Dehydrogenase Troponin T C-Reactive Protein Total Protein Albumin LDL Cholesterol Direct Urine Creatinine Urine Total Protein Salicylates Acetaminophen Crossmatch 11/03/21 11/03/21 11/04/21 18:22 Unknown 00:09 WBC RBC Hgb Hct MCH RDW Plt Count Lymph % (Auto) Lymph # (Auto) [place] # (Auto) Seg Neutrophils % Seg Neuts % (Manual) Lymphocytes % (Manual) Nucleated RBC % Seg Neutrophils # Seg Neutrophils # Man Monocytes # (Manual) PT INR APTT D-Dimer Heparin Anti-Xa Level 0.29 L ABG pH ABG pO2 ABG HCO3 ABG O2 Saturation ABG Base Excess ABG Hemoglobin Oxyhemoglobin Sodium Potassium Chloride Carbon Dioxide BUN Creatinine Glucose POC Glucose 178 H 221 H Hemoglobin A1c Lactic Acid Calcium Phosphorus Magnesium Ferritin AST ALT Alkaline Phosphatase Lactate Dehydrogenase Troponin T C-Reactive Protein Total Protein Albumin LDL Cholesterol Direct Urine Creatinine Urine Total Protein Salicylates Acetaminophen Crossmatch 11/04/21 11/04/21 11/04/21 05:09 09:40 09:40 WBC 16.8 H RBC Hgb Hct MCH 27 L RDW 16.5 H Plt Count Lymph % (Auto) Lymph # (Auto) [place] # (Auto) Seg Neutrophils % Seg Neuts % (Manual) Lymphocytes % (Manual) Nucleated RBC % Seg Neutrophils # Seg Neutrophils # Man Monocytes # (Manual) PT INR APTT D-Dimer Heparin Anti-Xa Level ABG pH ABG pO2 ABG HCO3 ABG O2 Saturation ABG Base Excess ABG Hemoglobin Oxyhemoglobin Sodium Potassium 5.9 H Chloride 108.5 H Carbon Dioxide BUN 54 H Creatinine 1.8 H Glucose 198 H POC Glucose 182 H Hemoglobin A1c Lactic Acid Calcium Phosphorus Magnesium 3.00 H Ferritin AST ALT Alkaline Phosphatase Lactate Dehydrogenase Troponin T C-Reactive Protein Total Protein Albumin LDL Cholesterol Direct Urine Creatinine Urine Total Protein Salicylates Acetaminophen Crossmatch 11/04/21 11/04/21 11/04/21 12:13 13:34 14:05 WBC RBC Hgb Hct MCH RDW Plt Count Lymph % (Auto) Lymph # (Auto) [place] # (Auto) Seg Neutrophils % Seg Neuts % (Manual) Lymphocytes % (Manual) Nucleated RBC % Seg Neutrophils # Seg Neutrophils # Man Monocytes # (Manual) PT INR APTT D-Dimer Heparin Anti-Xa Level ABG pH 7.223 L ABG pO2 71.3 L ABG HCO3 ABG O2 Saturation 92.8 L ABG Base Excess ABG Hemoglobin 8.2 L Oxyhemoglobin 91.0 L Sodium Potassium Chloride Carbon Dioxide BUN Creatinine Glucose POC Glucose 184 H Hemoglobin A1c Lactic Acid Calcium Phosphorus Magnesium Ferritin AST ALT Alkaline Phosphatase Lactate Dehydrogenase Troponin T C-Reactive Protein Total Protein Albumin LDL Cholesterol Direct Urine Creatinine 184.6 H Urine Total Protein Salicylates Acetaminophen Crossmatch 11/04/21 11/04/21 11/05/21 18:02 Unknown 00:07 WBC RBC Hgb Hct MCH RDW Plt Count Lymph % (Auto) Lymph # (Auto) [place] # (Auto) Seg Neutrophils % Seg Neuts % (Manual) Lymphocytes % (Manual) Nucleated RBC % Seg Neutrophils # Seg Neutrophils # Man Monocytes # (Manual) PT INR APTT D-Dimer Heparin Anti-Xa Level ABG pH ABG pO2 ABG HCO3 ABG O2 Saturation ABG Base Excess ABG Hemoglobin Oxyhemoglobin Sodium Potassium Chloride Carbon Dioxide BUN Creatinine Glucose POC Glucose 262 H 259 H Hemoglobin A1c Lactic Acid Calcium Phosphorus Magnesium Ferritin AST ALT Alkaline Phosphatase Lactate Dehydrogenase Troponin T C-Reactive Protein Total Protein Albumin LDL Cholesterol Direct Urine Creatinine 190.9 H Urine Total Protein 172 H Salicylates Acetaminophen Crossmatch 11/05/21 11/05/21 11/05/21 04:20 04:20 05:30 WBC 17.9 H RBC 3.64 L Hgb 9.7 L Hct MCH 27 L RDW 16.4 H Plt Count Lymph % (Auto) Lymph # (Auto) [place] # (Auto) Seg Neutrophils % Seg Neuts % (Manual) Lymphocytes % (Manual) Nucleated RBC % Seg Neutrophils # Seg Neutrophils # Man Monocytes # (Manual) PT INR APTT D-Dimer Heparin Anti-Xa Level ABG pH ABG pO2 ABG HCO3 ABG O2 Saturation ABG Base Excess ABG Hemoglobin Oxyhemoglobin Sodium Potassium 5.6 H Chloride 108.4 H Carbon Dioxide BUN 71 H Creatinine 1.9 H Glucose 270 H POC Glucose 283 H Hemoglobin A1c Lactic Acid Calcium Phosphorus Magnesium Ferritin AST ALT Alkaline Phosphatase Lactate Dehydrogenase Troponin T C-Reactive Protein Total Protein Albumin LDL Cholesterol Direct Urine Creatinine Urine Total Protein Salicylates Acetaminophen Crossmatch 11/05/21 11/05/21 11/05/21 10:05 12:10 15:29 WBC RBC Hgb Hct MCH RDW Plt Count Lymph % (Auto) Lymph # (Auto) [place] # (Auto) Seg Neutrophils % Seg Neuts % (Manual) Lymphocytes % (Manual) Nucleated RBC % Seg Neutrophils # Seg Neutrophils # Man Monocytes # (Manual) PT INR APTT D-Dimer Heparin Anti-Xa Level ABG pH 7.248 L ABG pO2 73.7 L ABG HCO3 26.2 H ABG O2 Saturation 93.1 L ABG Base Excess ABG Hemoglobin 8.9 L Oxyhemoglobin 91.4 L Sodium Potassium Chloride Carbon Dioxide BUN Creatinine Glucose POC Glucose 225 H 199 H Hemoglobin A1c Lactic Acid Calcium Phosphorus Magnesium Ferritin AST ALT Alkaline Phosphatase Lactate Dehydrogenase Troponin T C-Reactive Protein Total Protein Albumin LDL Cholesterol Direct Urine Creatinine Urine Total Protein Salicylates Acetaminophen Crossmatch 11/05/21 11/05/21 11/05/21 15:51 17:32 17:40 WBC RBC Hgb Hct MCH RDW Plt Count Lymph % (Auto) Lymph # (Auto) [place] # (Auto) Seg Neutrophils % Seg Neuts % (Manual) Lymphocytes % (Manual) Nucleated RBC % Seg Neutrophils # Seg Neutrophils # Man Monocytes # (Manual) PT INR APTT D-Dimer Heparin Anti-Xa Level ABG pH ABG pO2 ABG HCO3 ABG O2 Saturation ABG Base Excess ABG Hemoglobin Oxyhemoglobin Sodium Potassium 5.2 H Chloride 107.8 H Carbon Dioxide BUN 79 H Creatinine 1.9 H Glucose 204 H POC Glucose 278 H 197 H Hemoglobin A1c Lactic Acid Calcium Phosphorus Magnesium Ferritin AST ALT Alkaline Phosphatase Lactate Dehydrogenase Troponin T C-Reactive Protein Total Protein Albumin LDL Cholesterol Direct Urine Creatinine Urine Total Protein Salicylates Acetaminophen Crossmatch 11/05/21 11/05/21 11/05/21 21:25 22:22 23:43 WBC RBC Hgb Hct MCH RDW Plt Count Lymph % (Auto) Lymph # (Auto) [place] # (Auto) Seg Neutrophils % Seg Neuts % (Manual) Lymphocytes % (Manual) Nucleated RBC % Seg Neutrophils # Seg Neutrophils # Man Monocytes # (Manual) PT INR APTT D-Dimer Heparin Anti-Xa Level ABG pH ABG pO2 ABG HCO3 ABG O2 Saturation ABG Base Excess ABG Hemoglobin Oxyhemoglobin Sodium Potassium 5.3 H Chloride 109.2 H Carbon Dioxide BUN 81 H Creatinine 2.0 H Glucose 195 H POC Glucose 180 H 203 H Hemoglobin A1c Lactic Acid Calcium Phosphorus Magnesium Ferritin AST ALT Alkaline Phosphatase Lactate Dehydrogenase Troponin T C-Reactive Protein Total Protein Albumin LDL Cholesterol Direct Urine Creatinine Urine Total Protein Salicylates Acetaminophen Crossmatch 11/05/21 11/06/21 11/06/21 Unknown 02:35 05:09 WBC RBC Hgb Hct MCH RDW Plt Count Lymph % (Auto) Lymph # (Auto) [place] # (Auto) Seg Neutrophils % Seg Neuts % (Manual) Lymphocytes % (Manual) Nucleated RBC % Seg Neutrophils # Seg Neutrophils # Man Monocytes # (Manual) PT INR APTT D-Dimer Heparin Anti-Xa Level ABG pH ABG pO2 ABG HCO3 ABG O2 Saturation ABG Base Excess ABG Hemoglobin Oxyhemoglobin Sodium 146 H Potassium 6.0 H Chloride 108.1 H 107.1 H Carbon Dioxide 21 L BUN 80 H 84 H Creatinine 2.0 H 2.0 H Glucose 238 H 235 H POC Glucose 215 H Hemoglobin A1c Lactic Acid Calcium Phosphorus Magnesium 2.80 H Ferritin AST ALT 77 H Alkaline Phosphatase Lactate Dehydrogenase Troponin T C-Reactive Protein Total Protein Albumin 3.0 L LDL Cholesterol Direct Urine Creatinine Urine Total Protein Salicylates Acetaminophen Crossmatch 11/06/21 11/06/21 11/06/21 05:40 08:07 08:07 WBC RBC Hgb Hct MCH RDW Plt Count Lymph % (Auto) Lymph # (Auto) [place] # (Auto) Seg Neutrophils % Seg Neuts % (Manual) Lymphocytes % (Manual) Nucleated RBC % Seg Neutrophils # Seg Neutrophils # Man Monocytes # (Manual) PT INR APTT D-Dimer Heparin Anti-Xa Level 1.24 H ABG pH 7.311 L ABG pO2 72.8 L ABG HCO3 29.7 H ABG O2 Saturation 94.1 L ABG Base Excess ABG Hemoglobin 11.4 L Oxyhemoglobin 92.3 L Sodium Potassium 5.2 H Chloride Carbon Dioxide BUN 85 H Creatinine 2.3 H Glucose 236 H POC Glucose Hemoglobin A1c Lactic Acid Calcium Phosphorus Magnesium Ferritin AST ALT Alkaline Phosphatase Lactate Dehydrogenase Troponin T C-Reactive Protein Total Protein Albumin LDL Cholesterol Direct Urine Creatinine Urine Total Protein Salicylates Acetaminophen Crossmatch 11/06/21 11/06/21 11/06/21 12:14 12:57 14:28 WBC RBC Hgb Hct MCH RDW Plt Count Lymph % (Auto) Lymph # (Auto) [place] # (Auto) Seg Neutrophils % Seg Neuts % (Manual) Lymphocytes % (Manual) Nucleated RBC % Seg Neutrophils # Seg Neutrophils # Man Monocytes # (Manual) PT INR APTT D-Dimer Heparin Anti-Xa Level ABG pH 7.282 L ABG pO2 72.6 L ABG HCO3 30.8 H ABG O2 Saturation 93.7 L ABG Base Excess 3.2 H ABG Hemoglobin 8.6 L Oxyhemoglobin 91.8 L Sodium Potassium Chloride Carbon Dioxide BUN 91 H Creatinine 2.6 H Glucose 259 H POC Glucose 225 H Hemoglobin A1c Lactic Acid Calcium Phosphorus Magnesium Ferritin AST ALT Alkaline Phosphatase Lactate Dehydrogenase Troponin T C-Reactive Protein Total Protein Albumin LDL Cholesterol Direct Urine Creatinine Urine Total Protein Salicylates Acetaminophen Crossmatch 11/06/21 11/06/21 11/06/21 17:28 19:20 21:30 WBC RBC Hgb Hct MCH RDW Plt Count Lymph % (Auto) Lymph # (Auto) [place] # (Auto) Seg Neutrophils % Seg Neuts % (Manual) Lymphocytes % (Manual) Nucleated RBC % Seg Neutrophils # Seg Neutrophils # Man Monocytes # (Manual) PT INR APTT D-Dimer Heparin Anti-Xa Level 0.73 H ABG pH ABG pO2 ABG HCO3 ABG O2 Saturation ABG Base Excess ABG Hemoglobin Oxyhemoglobin Sodium Potassium Chloride Carbon Dioxide BUN 95 H Creatinine 2.9 H Glucose 233 H POC Glucose 206 H Hemoglobin A1c Lactic Acid Calcium Phosphorus Magnesium Ferritin AST ALT Alkaline Phosphatase Lactate Dehydrogenase Troponin T C-Reactive Protein Total Protein Albumin LDL Cholesterol Direct Urine Creatinine Urine Total Protein Salicylates Acetaminophen Crossmatch 11/06/21 11/07/21 11/07/21 22:56 05:06 06:30 WBC RBC Hgb Hct MCH RDW Plt Count Lymph % (Auto) Lymph # (Auto) [place] # (Auto) Seg Neutrophils % Seg Neuts % (Manual) Lymphocytes % (Manual) Nucleated RBC % Seg Neutrophils # Seg Neutrophils # Man Monocytes # (Manual) PT INR APTT D-Dimer Heparin Anti-Xa Level ABG pH ABG pO2 ABG HCO3 ABG O2 Saturation ABG Base Excess ABG Hemoglobin Oxyhemoglobin Sodium 146 H Potassium Chloride Carbon Dioxide BUN 98 H Creatinine 2.8 H Glucose 202 H POC Glucose 215 H 172 H Hemoglobin A1c Lactic Acid Calcium Phosphorus 4.90 H D Magnesium 2.90 H Ferritin AST ALT Alkaline Phosphatase Lactate Dehydrogenase Troponin T C-Reactive Protein Total Protein Albumin LDL Cholesterol Direct Urine Creatinine Urine Total Protein Salicylates Acetaminophen Crossmatch 11/07/21 11/07/21 11/07/21 06:30 11:26 12:15 WBC 16.0 H RBC 3.06 L Hgb 8.2 L Hct 26.1 L MCH 27 L RDW 16.2 H Plt Count Lymph % (Auto) Lymph # (Auto) [place] # (Auto) Seg Neutrophils % Seg Neuts % (Manual) 77.0 H Lymphocytes % (Manual) 11.0 L Nucleated RBC % 2.0 H Seg Neutrophils # Seg Neutrophils # Man 12.3 H Monocytes # (Manual) PT INR APTT D-Dimer Heparin Anti-Xa Level ABG pH 7.298 L ABG pO2 73.0 L ABG HCO3 33.3 H ABG O2 Saturation 94.4 L ABG Base Excess 5.8 H ABG Hemoglobin 8.2 L Oxyhemoglobin 92.7 L Sodium Potassium Chloride Carbon Dioxide BUN Creatinine Glucose POC Glucose 179 H Hemoglobin A1c Lactic Acid Calcium Phosphorus Magnesium Ferritin AST ALT Alkaline Phosphatase Lactate Dehydrogenase Troponin T C-Reactive Protein Total Protein Albumin LDL Cholesterol Direct Urine Creatinine Urine Total Protein Salicylates Acetaminophen Crossmatch 11/07/21 11/07/21 11/07/21 17:57 22:16 23:49 WBC RBC Hgb Hct MCH RDW Plt Count Lymph % (Auto) Lymph # (Auto) [place] # (Auto) Seg Neutrophils % Seg Neuts % (Manual) Lymphocytes % (Manual) Nucleated RBC % Seg Neutrophils # Seg Neutrophils # Man Monocytes # (Manual) PT INR APTT D-Dimer Heparin Anti-Xa Level ABG pH ABG pO2 ABG HCO3 ABG O2 Saturation ABG Base Excess ABG Hemoglobin Oxyhemoglobin Sodium Potassium Chloride Carbon Dioxide BUN Creatinine Glucose POC Glucose 166 H 223 H 190 H Hemoglobin A1c Lactic Acid Calcium Phosphorus Magnesium Ferritin AST ALT Alkaline Phosphatase Lactate Dehydrogenase Troponin T C-Reactive Protein Total Protein Albumin LDL Cholesterol Direct Urine Creatinine Urine Total Protein Salicylates Acetaminophen Crossmatch 11/08/21 11/08/21 11/08/21 04:20 04:20 06:16 WBC 22.1 H RBC 3.01 L Hgb 8.1 L Hct 25.6 L MCH 27 L RDW 15.4 H Plt Count Lymph % (Auto) Lymph # (Auto) [place] # (Auto) Seg Neutrophils % Seg Neuts % (Manual) Lymphocytes % (Manual) Nucleated RBC % Seg Neutrophils # Seg Neutrophils # Man Monocytes # (Manual) PT INR APTT D-Dimer Heparin Anti-Xa Level ABG pH ABG pO2 ABG HCO3 ABG O2 Saturation ABG Base Excess ABG Hemoglobin Oxyhemoglobin Sodium 151 H Potassium 3.1 L D Chloride 107.3 H Carbon Dioxide 31 H BUN 82 H Creatinine 1.8 H Glucose 232 H POC Glucose 198 H Hemoglobin A1c Lactic Acid Calcium 8.1 L Phosphorus Magnesium Ferritin AST ALT Alkaline Phosphatase Lactate Dehydrogenase Troponin T C-Reactive Protein Total Protein Albumin LDL Cholesterol Direct Urine Creatinine Urine Total Protein Salicylates Acetaminophen Crossmatch 11/08/21 11/08/21 11/08/21 11:38 12:00 18:29 WBC RBC Hgb Hct MCH RDW Plt Count Lymph % (Auto) Lymph # (Auto) [place] # (Auto) Seg Neutrophils % Seg Neuts % (Manual) Lymphocytes % (Manual) Nucleated RBC % Seg Neutrophils # Seg Neutrophils # Man Monocytes # (Manual) PT INR APTT D-Dimer Heparin Anti-Xa Level ABG pH ABG pO2 ABG HCO3 ABG O2 Saturation ABG Base Excess ABG Hemoglobin Oxyhemoglobin Sodium Potassium 3.0 L Chloride Carbon Dioxide BUN Creatinine Glucose POC Glucose 190 H 211 H Hemoglobin A1c Lactic Acid Calcium Phosphorus Magnesium Ferritin AST ALT Alkaline Phosphatase Lactate Dehydrogenase Troponin T C-Reactive Protein Total Protein Albumin LDL Cholesterol Direct Urine Creatinine Urine Total Protein Salicylates Acetaminophen Crossmatch 11/08/21 11/08/21 11/09/21 21:34 21:40 00:36 WBC RBC Hgb Hct MCH RDW Plt Count Lymph % (Auto) Lymph # (Auto) [place] # (Auto) Seg Neutrophils % Seg Neuts % (Manual) Lymphocytes % (Manual) Nucleated RBC % Seg Neutrophils # Seg Neutrophils # Man Monocytes # (Manual) PT INR APTT D-Dimer Heparin Anti-Xa Level ABG pH ABG pO2 ABG HCO3 ABG O2 Saturation ABG Base Excess ABG Hemoglobin Oxyhemoglobin Sodium 148 H Potassium 2.8 L* Chloride Carbon Dioxide 31 H BUN 68 H Creatinine 1.5 H Glucose 191 H POC Glucose 194 H 140 H Hemoglobin A1c Lactic Acid Calcium 8.2 L Phosphorus Magnesium Ferritin AST ALT Alkaline Phosphatase Lactate Dehydrogenase Troponin T C-Reactive Protein Total Protein Albumin LDL Cholesterol Direct Urine Creatinine Urine Total Protein Salicylates Acetaminophen Crossmatch 11/09/21 11/09/21 11/09/21 04:51 04:51 04:51 WBC 27.6 H RBC 3.18 L Hgb 8.4 L Hct 26.6 L MCH 27 L RDW 15.3 H Plt Count Lymph % (Auto) Lymph # (Auto) [place] # (Auto) Seg Neutrophils % Seg Neuts % (Manual) Lymphocytes % (Manual) Nucleated RBC % Seg Neutrophils # Seg Neutrophils # Man Monocytes # (Manual) PT INR APTT D-Dimer Heparin Anti-Xa Level 0.18 L ABG pH ABG pO2 ABG HCO3 ABG O2 Saturation ABG Base Excess ABG Hemoglobin Oxyhemoglobin Sodium 148 H Potassium 2.7 L* Chloride Carbon Dioxide BUN 59 H Creatinine 1.4 H Glucose 143 H POC Glucose Hemoglobin A1c Lactic Acid Calcium 8.3 L Phosphorus Magnesium Ferritin AST ALT Alkaline Phosphatase Lactate Dehydrogenase Troponin T C-Reactive Protein Total Protein Albumin LDL Cholesterol Direct Urine Creatinine Urine Total Protein Salicylates Acetaminophen Crossmatch 11/09/21 11/09/21 11/09/21 05:52 08:45 11:00 WBC RBC Hgb Hct MCH RDW Plt Count Lymph % (Auto) Lymph # (Auto) [place] # (Auto) Seg Neutrophils % Seg Neuts % (Manual) Lymphocytes % (Manual) Nucleated RBC % Seg Neutrophils # Seg Neutrophils # Man Monocytes # (Manual) PT INR APTT D-Dimer Heparin Anti-Xa Level ABG pH ABG pO2 73.2 L ABG HCO3 33.8 H ABG O2 Saturation ABG Base Excess 8.7 H ABG Hemoglobin 8.5 L Oxyhemoglobin 94.1 L Sodium Potassium Chloride Carbon Dioxide BUN Creatinine Glucose POC Glucose 166 H 136 H Hemoglobin A1c Lactic Acid Calcium Phosphorus Magnesium Ferritin AST ALT Alkaline Phosphatase Lactate Dehydrogenase Troponin T C-Reactive Protein Total Protein Albumin LDL Cholesterol Direct Urine Creatinine Urine Total Protein Salicylates Acetaminophen Crossmatch 11/09/21 11/09/21 11/09/21 15:48 16:10 20:31 WBC RBC Hgb Hct MCH RDW Plt Count Lymph % (Auto) Lymph # (Auto) [place] # (Auto) Seg Neutrophils % Seg Neuts % (Manual) Lymphocytes % (Manual) Nucleated RBC % Seg Neutrophils # Seg Neutrophils # Man Monocytes # (Manual) PT INR APTT D-Dimer Heparin Anti-Xa Level ABG pH ABG pO2 ABG HCO3 ABG O2 Saturation ABG Base Excess ABG Hemoglobin Oxyhemoglobin Sodium Potassium 2.8 L* Chloride Carbon Dioxide 31 H BUN 53 H Creatinine 1.3 H Glucose 208 H POC Glucose 203 H 166 H Hemoglobin A1c Lactic Acid Calcium 7.9 L Phosphorus Magnesium Ferritin AST ALT Alkaline Phosphatase Lactate Dehydrogenase Troponin T C-Reactive Protein Total Protein Albumin LDL Cholesterol Direct Urine Creatinine Urine Total Protein Salicylates Acetaminophen Crossmatch 11/09/21 11/09/21 11/09/21 21:30 23:16 Unknown WBC RBC Hgb Hct MCH RDW Plt Count Lymph % (Auto) Lymph # (Auto) [place] # (Auto) Seg Neutrophils % Seg Neuts % (Manual) Lymphocytes % (Manual) Nucleated RBC % Seg Neutrophils # Seg Neutrophils # Man Monocytes # (Manual) PT INR APTT D-Dimer Heparin Anti-Xa Level 0.24 L ABG pH ABG pO2 ABG HCO3 ABG O2 Saturation ABG Base Excess ABG Hemoglobin Oxyhemoglobin Sodium Potassium Chloride Carbon Dioxide BUN 52 H Creatinine 1.4 H Glucose 185 H POC Glucose 172 H Hemoglobin A1c Lactic Acid Calcium 7.8 L Phosphorus Magnesium Ferritin AST ALT Alkaline Phosphatase Lactate Dehydrogenase Troponin T C-Reactive Protein Total Protein Albumin LDL Cholesterol Direct Urine Creatinine Urine Total Protein Salicylates Acetaminophen Crossmatch 11/10/21 11/10/21 11/10/21 02:00 04:17 04:17 WBC 24.5 H RBC 2.75 L Hgb 7.5 L Hct 22.9 L MCH 27 L RDW Plt Count Lymph % (Auto) Lymph # (Auto) [place] # (Auto) Seg Neutrophils % Seg Neuts % (Manual) Lymphocytes % (Manual) Nucleated RBC % Seg Neutrophils # Seg Neutrophils # Man Monocytes # (Manual) PT INR APTT D-Dimer Heparin Anti-Xa Level 0.26 L ABG pH ABG pO2 ABG HCO3 ABG O2 Saturation ABG Base Excess ABG Hemoglobin Oxyhemoglobin Sodium Potassium 2.9 L* Chloride Carbon Dioxide 35 H BUN 48 H Creatinine Glucose 212 H POC Glucose Hemoglobin A1c Lactic Acid Calcium 8.1 L Phosphorus Magnesium Ferritin AST ALT Alkaline Phosphatase Lactate Dehydrogenase Troponin T C-Reactive Protein Total Protein Albumin LDL Cholesterol Direct Urine Creatinine Urine Total Protein Salicylates Acetaminophen Crossmatch 11/10/21 11/10/21 11/10/21 05:01 08:39 11:03 WBC RBC Hgb Hct MCH RDW Plt Count Lymph % (Auto) Lymph # (Auto) [place] # (Auto) Seg Neutrophils % Seg Neuts % (Manual) Lymphocytes % (Manual) Nucleated RBC % Seg Neutrophils # Seg Neutrophils # Man Monocytes # (Manual) PT INR APTT D-Dimer Heparin Anti-Xa Level 0.12 L ABG pH ABG pO2 ABG HCO3 ABG O2 Saturation ABG Base Excess ABG Hemoglobin Oxyhemoglobin Sodium Potassium Chloride Carbon Dioxide BUN Creatinine Glucose POC Glucose 203 H 152 H Hemoglobin A1c Lactic Acid Calcium Phosphorus Magnesium Ferritin AST ALT Alkaline Phosphatase Lactate Dehydrogenase Troponin T C-Reactive Protein Total Protein Albumin LDL Cholesterol Direct Urine Creatinine Urine Total Protein Salicylates Acetaminophen Crossmatch 11/10/21 11/10/21 11/10/21 12:45 15:43 21:05 WBC RBC Hgb Hct MCH RDW Plt Count Lymph % (Auto) Lymph # (Auto) [place] # (Auto) Seg Neutrophils % Seg Neuts % (Manual) Lymphocytes % (Manual) Nucleated RBC % Seg Neutrophils # Seg Neutrophils # Man Monocytes # (Manual) PT INR APTT D-Dimer Heparin Anti-Xa Level ABG pH ABG pO2 ABG HCO3 ABG O2 Saturation ABG Base Excess ABG Hemoglobin Oxyhemoglobin Sodium 146 H Potassium 3.3 L Chloride Carbon Dioxide 31 H BUN 43 H Creatinine Glucose 155 H POC Glucose 139 H 139 H Hemoglobin A1c Lactic Acid Calcium 8.3 L Phosphorus Magnesium Ferritin AST ALT Alkaline Phosphatase Lactate Dehydrogenase Troponin T C-Reactive Protein Total Protein Albumin LDL Cholesterol Direct Urine Creatinine Urine Total Protein Salicylates Acetaminophen Crossmatch 11/10/21 11/11/21 11/11/21 23:25 03:49 03:49 WBC 22.1 H RBC 2.69 L Hgb 7.2 L Hct 22.7 L MCH 27 L RDW Plt Count Lymph % (Auto) Lymph # (Auto) [place] # (Auto) Seg Neutrophils % Seg Neuts % (Manual) Lymphocytes % (Manual) Nucleated RBC % Seg Neutrophils # Seg Neutrophils # Man Monocytes # (Manual) PT INR APTT D-Dimer Heparin Anti-Xa Level ABG pH ABG pO2 ABG HCO3 ABG O2 Saturation ABG Base Excess ABG Hemoglobin Oxyhemoglobin Sodium Potassium Chloride Carbon Dioxide 32 H BUN 44 H Creatinine 1.3 H Glucose 173 H POC Glucose 146 H Hemoglobin A1c Lactic Acid Calcium Phosphorus Magnesium Ferritin AST ALT Alkaline Phosphatase Lactate Dehydrogenase Troponin T C-Reactive Protein Total Protein Albumin LDL Cholesterol Direct Urine Creatinine Urine Total Protein Salicylates Acetaminophen Crossmatch 11/11/21 11/11/21 11/11/21 05:03 10:50 11:32 WBC RBC Hgb Hct MCH RDW Plt Count Lymph % (Auto) Lymph # (Auto) [place] # (Auto) Seg Neutrophils % Seg Neuts % (Manual) Lymphocytes % (Manual) Nucleated RBC % Seg Neutrophils # Seg Neutrophils # Man Monocytes # (Manual) PT INR APTT D-Dimer Heparin Anti-Xa Level ABG pH ABG pO2 ABG HCO3 ABG O2 Saturation ABG Base Excess ABG Hemoglobin Oxyhemoglobin Sodium Potassium Chloride Carbon Dioxide BUN Creatinine Glucose POC Glucose 152 H 129 H 133 H Hemoglobin A1c Lactic Acid Calcium Phosphorus Magnesium Ferritin AST ALT Alkaline Phosphatase Lactate Dehydrogenase Troponin T C-Reactive Protein Total Protein Albumin LDL Cholesterol Direct Urine Creatinine Urine Total Protein Salicylates Acetaminophen Crossmatch 11/11/21 11/11/21 11/11/21 13:53 16:31 17:13 WBC RBC Hgb Hct MCH RDW Plt Count Lymph % (Auto) Lymph # (Auto) [place] # (Auto) Seg Neutrophils % Seg Neuts % (Manual) Lymphocytes % (Manual) Nucleated RBC % Seg Neutrophils # Seg Neutrophils # Man Monocytes # (Manual) PT INR APTT D-Dimer Heparin Anti-Xa Level ABG pH 7.475 H ABG pO2 64.1 L ABG HCO3 32.4 H ABG O2 Saturation ABG Base Excess 8.0 H ABG Hemoglobin 7.6 L Oxyhemoglobin 94.0 L Sodium Potassium Chloride Carbon Dioxide BUN Creatinine Glucose POC Glucose 116 H 125 H Hemoglobin A1c Lactic Acid Calcium Phosphorus Magnesium Ferritin AST ALT Alkaline Phosphatase Lactate Dehydrogenase Troponin T C-Reactive Protein Total Protein Albumin LDL Cholesterol Direct Urine Creatinine Urine Total Protein Salicylates Acetaminophen Crossmatch 11/11/21 11/11/21 11/12/21 20:40 23:35 03:30 WBC 17.7 H RBC 2.37 L Hgb 6.3 L Hct 20.0 L MCH 27 L RDW 15.5 H Plt Count Lymph % (Auto) Lymph # (Auto) [place] # (Auto) Seg Neutrophils % Seg Neuts % (Manual) Lymphocytes % (Manual) Nucleated RBC % Seg Neutrophils # Seg Neutrophils # Man Monocytes # (Manual) PT INR APTT D-Dimer Heparin Anti-Xa Level 0.26 L ABG pH ABG pO2 ABG HCO3 ABG O2 Saturation ABG Base Excess ABG Hemoglobin Oxyhemoglobin Sodium Potassium Chloride Carbon Dioxide BUN Creatinine Glucose POC Glucose 118 H Hemoglobin A1c Lactic Acid Calcium Phosphorus Magnesium Ferritin AST ALT Alkaline Phosphatase Lactate Dehydrogenase Troponin T C-Reactive Protein Total Protein Albumin LDL Cholesterol Direct Urine Creatinine Urine Total Protein Salicylates Acetaminophen Crossmatch 11/12/21 11/12/21 11/12/21 03:30 04:15 11:53 WBC RBC Hgb Hct MCH RDW Plt Count Lymph % (Auto) Lymph # (Auto) [place] # (Auto) Seg Neutrophils % Seg Neuts % (Manual) Lymphocytes % (Manual) Nucleated RBC % Seg Neutrophils # Seg Neutrophils # Man Monocytes # (Manual) PT INR APTT D-Dimer Heparin Anti-Xa Level ABG pH ABG pO2 ABG HCO3 ABG O2 Saturation ABG Base Excess ABG Hemoglobin Oxyhemoglobin Sodium Potassium Chloride Carbon Dioxide 33 H BUN 38 H Creatinine 1.3 H Glucose 102 H POC Glucose 62 L Hemoglobin A1c Lactic Acid Calcium 8.2 L Phosphorus Magnesium Ferritin AST ALT Alkaline Phosphatase Lactate Dehydrogenase Troponin T C-Reactive Protein Total Protein Albumin LDL Cholesterol Direct Urine Creatinine Urine Total Protein Salicylates Acetaminophen Crossmatch See Detail 11/12/21 11/12/21 11/12/21 17:20 19:14 23:11 WBC RBC Hgb 6.2 L Hct 19.5 L* MCH RDW Plt Count Lymph % (Auto) Lymph # (Auto) [place] # (Auto) Seg Neutrophils % Seg Neuts % (Manual) Lymphocytes % (Manual) Nucleated RBC % Seg Neutrophils # Seg Neutrophils # Man Monocytes # (Manual) PT INR APTT D-Dimer Heparin Anti-Xa Level ABG pH ABG pO2 ABG HCO3 ABG O2 Saturation ABG Base Excess ABG Hemoglobin Oxyhemoglobin Sodium Potassium Chloride Carbon Dioxide BUN Creatinine Glucose POC Glucose 115 H 131 H Hemoglobin A1c Lactic Acid Calcium Phosphorus Magnesium Ferritin AST ALT Alkaline Phosphatase Lactate Dehydrogenase Troponin T C-Reactive Protein Total Protein Albumin LDL Cholesterol Direct Urine Creatinine Urine Total Protein Salicylates Acetaminophen Crossmatch 11/13/21 11/13/21 11/13/21 00:13 04:17 04:17 WBC 23.8 H RBC 2.84 L Hgb 7.4 L 7.8 L Hct 23.3 L 24.9 L MCH 27 L RDW 15.4 H Plt Count Lymph % (Auto) Lymph # (Auto) [place] # (Auto) Seg Neutrophils % Seg Neuts % (Manual) Lymphocytes % (Manual) Nucleated RBC % Seg Neutrophils # Seg Neutrophils # Man Monocytes # (Manual) PT INR APTT D-Dimer Heparin Anti-Xa Level ABG pH ABG pO2 ABG HCO3 ABG O2 Saturation ABG Base Excess ABG Hemoglobin Oxyhemoglobin Sodium 146 H Potassium Chloride Carbon Dioxide BUN 44 H Creatinine 1.6 H Glucose 144 H POC Glucose Hemoglobin A1c Lactic Acid Calcium 7.9 L Phosphorus 5.10 H D Magnesium Ferritin AST ALT Alkaline Phosphatase Lactate Dehydrogenase Troponin T C-Reactive Protein Total Protein Albumin LDL Cholesterol Direct Urine Creatinine Urine Total Protein Salicylates Acetaminophen Crossmatch 11/13/21 11/13/21 11/13/21 05:52 10:54 15:57 WBC RBC Hgb Hct MCH RDW Plt Count Lymph % (Auto) Lymph # (Auto) [place] # (Auto) Seg Neutrophils % Seg Neuts % (Manual) Lymphocytes % (Manual) Nucleated RBC % Seg Neutrophils # Seg Neutrophils # Man Monocytes # (Manual) PT INR APTT D-Dimer Heparin Anti-Xa Level ABG pH ABG pO2 ABG HCO3 ABG O2 Saturation ABG Base Excess ABG Hemoglobin Oxyhemoglobin Sodium Potassium Chloride Carbon Dioxide BUN Creatinine Glucose POC Glucose 123 H 147 H 207 H Hemoglobin A1c Lactic Acid Calcium Phosphorus Magnesium Ferritin AST ALT Alkaline Phosphatase Lactate Dehydrogenase Troponin T C-Reactive Protein Total Protein Albumin LDL Cholesterol Direct Urine Creatinine Urine Total Protein Salicylates Acetaminophen Crossmatch 11/13/21 11/13/21 11/14/21 16:01 23:18 04:55 WBC 23.9 H RBC 2.86 L Hgb 6.5 L 8.3 L Hct 20.3 L 24.5 L MCH RDW Plt Count Lymph % (Auto) Lymph # (Auto) [place] # (Auto) Seg Neutrophils % Seg Neuts % (Manual) Lymphocytes % (Manual) Nucleated RBC % Seg Neutrophils # Seg Neutrophils # Man Monocytes # (Manual) PT INR APTT D-Dimer Heparin Anti-Xa Level ABG pH ABG pO2 ABG HCO3 ABG O2 Saturation ABG Base Excess ABG Hemoglobin Oxyhemoglobin Sodium Potassium Chloride Carbon Dioxide BUN Creatinine Glucose POC Glucose 209 H Hemoglobin A1c Lactic Acid Calcium Phosphorus Magnesium Ferritin AST ALT Alkaline Phosphatase Lactate Dehydrogenase Troponin T C-Reactive Protein Total Protein Albumin LDL Cholesterol Direct Urine Creatinine Urine Total Protein Salicylates Acetaminophen Crossmatch 11/14/21 11/14/21 11/14/21 04:55 05:09 11:35 WBC RBC Hgb Hct MCH RDW Plt Count Lymph % (Auto) Lymph # (Auto) [place] # (Auto) Seg Neutrophils % Seg Neuts % (Manual) Lymphocytes % (Manual) Nucleated RBC % Seg Neutrophils # Seg Neutrophils # Man Monocytes # (Manual) PT INR APTT D-Dimer Heparin Anti-Xa Level ABG pH ABG pO2 ABG HCO3 ABG O2 Saturation ABG Base Excess ABG Hemoglobin Oxyhemoglobin Sodium 148 H Potassium Chloride 109.0 H Carbon Dioxide BUN 42 H Creatinine 1.6 H Glucose 184 H POC Glucose 169 H 154 H Hemoglobin A1c Lactic Acid Calcium 8.0 L Phosphorus Magnesium Ferritin AST ALT Alkaline Phosphatase Lactate Dehydrogenase Troponin T C-Reactive Protein Total Protein Albumin LDL Cholesterol Direct Urine Creatinine Urine Total Protein Salicylates Acetaminophen Crossmatch Allied health notes reviewed: nursing
--- NOTE | 2021-11-14 13:18 | Progress Note ---
Assessment and Plan Assessment: Acute Renal Failure secondary to Ischemic ATN secondary to Sepsis, Cardiac arrest and Hypotension S/P Cardiac Arrest Acute Hypoxemic Respiratory Failure Acute DVT Sepsis CHF Anemia Hyperkalemia Plan: Renal labs reviewed. Serum creatinine 1.6 today, yesterday's was 1.6, stable, non-oliguric ARF likely secondary to Ischemic ATN No IVF as LVEF 25-30 % CXR showed- mild improving edema Was on Lasix 40 mg IV BID On Spironolactone 25 mg po daily DVT-S/P Heparin drip Sinus Tachycardia-S/P Amiodarone drip Hypernatremia- Increase Free water flush with 250 ml every 4 hours via tube feeds On D5W@ 42 ml/hr Anemia-transfuse as needed Obtain daily weights Strict I/O's daily Renally dose medications Avoid nephrotoxic agents Continue to monitor renal function Plan of care reviewed by Dr. Giordano Subjective Date of service: 10/14/21 Principal diagnosis: Cardiopulmonary Arrest Interval history: Placed on bipap Objective - Vital Signs Vital signs: Vital Signs - 12hr 11/14/21 11/14/21 11/14/21 01:30 01:39 02:00 Temperature 99.6 F Pulse Rate 106 H 106 H 104 H Pulse Rate [ From Monitor] Respiratory 32 H 32 H 32 H Rate Blood Pressure 112/66 112/66 104/68 O2 Sat by Pulse 99 100 98 Oximetry 11/14/21 11/14/21 11/14/21 02:09 02:30 02:39 Temperature Pulse Rate 104 H 105 H 105 H Pulse Rate [ From Monitor] Respiratory 32 H 34 H 34 H Rate Blood Pressure 104/68 111/71 111/71 O2 Sat by Pulse 98 99 99 Oximetry 11/14/21 11/14/21 11/14/21 03:00 03:08 03:09 Temperature 98.9 F Pulse Rate 108 H 106 H 106 H Pulse Rate [ From Monitor] Respiratory 31 H 36 H 37 H Rate Blood Pressure 99/64 130/83 130/83 O2 Sat by Pulse 98 98 98 Oximetry 11/14/21 11/14/21 11/14/21 03:30 04:00 04:30 Temperature 100.0 F H Pulse Rate 106 H 105 H 104 H Pulse Rate [ 106 H From Monitor] Respiratory 37 H 38 H 34 H Rate Blood Pressure 129/77 126/80 112/75 O2 Sat by Pulse 98 98 99 Oximetry 11/14/21 11/14/21 11/14/21 05:00 05:30 06:00 Temperature Pulse Rate 104 H 106 H 103 H Pulse Rate [ From Monitor] Respiratory 37 H 35 H 28 H Rate Blood Pressure 118/80 125/78 113/71 O2 Sat by Pulse 99 98 99 Oximetry 11/14/21 11/14/21 11/14/21 06:27 06:30 07:00 Temperature Pulse Rate 101 H 101 H 100 H Pulse Rate [ From Monitor] Respiratory 31 H 31 H Rate Blood Pressure 112/69 105/68 103/66 O2 Sat by Pulse 99 99 Oximetry 11/14/21 11/14/21 11/14/21 07:26 07:30 08:00 Temperature 99.9 F H Pulse Rate 103 H 103 H Pulse Rate [ 106 H From Monitor] Respiratory 39 H 43 H Rate Blood Pressure 120/77 123/78 O2 Sat by Pulse 97 100 100 Oximetry 11/14/21 11/14/21 11/14/21 08:30 09:00 09:30 Temperature Pulse Rate 106 H 112 H Pulse Rate [ From Monitor] Respiratory 36 H 49 H Rate Blood Pressure 136/83 133/74 158/97 O2 Sat by Pulse 99 99 95 Oximetry 11/14/21 11/14/21 11/14/21 09:47 10:00 10:30 Temperature Pulse Rate 90 80 75 Pulse Rate [ From Monitor] Respiratory 45 H 34 H 32 H Rate Blood Pressure 171/91 124/80 115/72 O2 Sat by Pulse 99 100 100 Oximetry 11/14/21 11/14/21 11/14/21 11:00 11:12 11:30 Temperature Pulse Rate 68 100 H 68 Pulse Rate [ From Monitor] Respiratory 12 31 H 30 H Rate Blood Pressure 104/63 104/63 103/65 O2 Sat by Pulse 100 100 100 Oximetry 11/14/21 12:00 Temperature 98 F Pulse Rate 71 Pulse Rate [ 106 H From Monitor] Respiratory 35 H Rate Blood Pressure 120/75 O2 Sat by Pulse 100 Oximetry - Lab 11/14/21 04:55 11/14/21 04:55 Most recent lab results ABG pH 7.475 pH Units (7.350-7.450) H 11/11/21 13:53 ABG pCO2 45.0 mm Hg 11/11/21 13:53 ABG pO2 64.1 mm Hg (80.0-90.0) L 11/11/21 13:53 ABG HCO3 32.4 mmol/L (20.0-26.0) H 11/11/21 13:53 ABG O2 Saturation 96.3 % (95.0-99.0) 11/11/21 13:53 Calcium 8.0 mg/dL (8.4-10.2) L 11/14/21 04:55 Phosphorus 3.20 mg/dL (2.5-4.5) D 11/14/21 04:55 Magnesium 2.20 mg/dL (1.7-2.3) 11/14/21 04:55 Urine Creatinine 190.9 mg/dL (0.1-20.0) H 11/04/21 Unknown Urine Sodium 10 mmol/L 11/04/21 Unknown Urine Total Protein 172 mg/dL (5-11.8) H 11/04/21 Unknown Medications & Allergies - Medications Allergies/Adverse Reactions: Allergies No Known Allergies Allergy (Verified 10/29/21 14:01) Home Medications: Home Medications Medication Instructions Recorded Confirmed Last Taken Type Unobtainable 11/10/21 11/10/21 Unknown History Active Medications: Generic Name Dose Route Start Last Admin Trade Name Freq PRN Reason Stop Dose Admin Acetaminophen 650 mg 10/29/21 17:04 11/11/21 13:35 Acetaminophen 325 Mg Tab PO 650 mg Q6H PRN Administration Pain, Mild (1-3) Acetaminophen 650 mg 10/29/21 17:04 11/12/21 22:53 Acetaminophen 650 Mg Rect Supp NC 650 mg Q6H PRN Administration Pain MILD(1-3)/Fever >100.5/NIEVES Amiodarone HCl 200 mg 11/14/21 11:00 11/14/21 11:31 Amiodarone 200 Mg Tab PO 200 mg DAILY RAMON Administration Lipase/Protease/Amylase 1 each 10/31/21 08:56 Lipase 10,500/Protease 25,000/Amylase 43,750 (Units) Dr Ivory FEEDTUBE PRN PRN For Clogged Feeding Tube Dextrose 0 ml 11/04/21 13:48 11/12/21 05:45 Dextrose 10% *Hypoglycemia IV 50 ml PRN PRN Administration Hypoglycemia Famotidine 10 mg 11/06/21 10:00 11/14/21 10:16 Famotidine 10 Mg Tab PO 10 mg BID RAMON Administration Fentanyl 50 mcg 11/04/21 14:32 11/09/21 00:01 Fentanyl 100 Mcg/2 Ml Inj IV 50 mcg Q2H PRN Administration Pain, Moderate (4-6) Hydrophilic Ointment 1 applic 10/29/21 14:29 11/09/21 08:51 Lip Therapy Vaseline TP 1 applic Q2HR PRN Administration Dry Lips Dexmedetomidine HCl 400 mcg/ 100 mls @ 5.335 mls/hr 11/11/21 21:00 11/14/21 10:16 Sodium Chloride IV 0.5 mcg/kg/hr TITRATE RAMON 13.338 mls/hr Administration Protocol 0.2 MCG/KG/HR Dextrose 1,000 mls @ 42 mls/hr 11/12/21 13:00 11/12/21 13:07 D5w IV 42 mls/hr DIRECT RAMON Administration Insulin Glargine 10 units 11/13/21 22:00 11/14/21 00:10 Insulin Glargine 100 Units/Ml SUB-Q 10 units QHS RAMON Administration Insulin Human Lispro 0 unit 10/30/21 16:00 11/14/21 12:27 Insulin Lispro 100 Unit/Ml SUB-Q 3 unit Q6HR RAMON Administration Protocol Metoprolol Tartrate 50 mg 11/07/21 12:00 11/14/21 11:30 Metoprolol Tartrate 50 Mg Tab FEEDTUBE Not Given Q6H RAMON Multi-Ingred Cream/Lotion/Oil/Oint 1 applic 10/29/21 14:29 11/06/21 09:25 Mineral Oil/Petrolatum, White Ophth Oint 3.5 Gm OU 1 applic Q4HR PRN Administration Dry Eye(s) Senna/Docusate Sodium 1 tab 10/29/21 15:00 11/14/21 10:17 Sennosides/Docusate Sodium 8.6/50 Mg Tab FEEDTUBE 1 tab BID RAMON Administration Simple Syrup 15 ml 10/31/21 08:56 Simple Syrup 15 Ml FEEDTUBE PRN PRN Hypoglycemia Simple Syrup 30 ml 10/31/21 08:56 Simple Syrup 15 Ml FEEDTUBE PRN PRN Hypoglycemia Sodium Bicarbonate 325 mg 10/31/21 08:56 Sodium Bicarbonate 325 Mg Tab FEEDTUBE PRN PRN For Clogged Feeding Tube Sodium Chloride 10 ml 10/29/21 22:00 11/14/21 10:17 Sodium Chloride 0.9% 10 Ml Flush Syringe IV 10 ml BID RAMON Administration Sodium Chloride 10 ml 10/29/21 17:04 Sodium Chloride 0.9% 10 Ml Flush Syringe IV PRN PRN LINE FLUSH Spironolactone 25 mg 11/10/21 10:00 11/14/21 10:19 Spironolactone 25 Mg Tab PO 25 mg QDAY RAMON Administration
[2021-11-14] MEDS: ALPRAZolam 0.25 MG TAB PO PRN (15:40)
--- NOTE | 2021-11-14 16:03 | Vascular Lab Report ---
DUPLEX DOPPLER LOWER EXTREMITY VEINS, BILATERAL INDICATION / CLINICAL INFORMATION: Evaluate for propagation of B/L Below Knee DVTs. TECHNIQUE: Duplex doppler imaging was performed through the veins of both lower extremities using karely ous compression and other maneuvers. COMPARISON: Bilateral lower extremity venous Doppler 10/30/2021. FINDINGS: RIGHT COMMON FEMORAL VEIN: Negative. RIGHT FEMORAL VEIN: Negative. RIGHT POPLITEAL VEIN: Negative. RIGHT CALF VEINS: Negative. Previously visualized peroneal vein DVT is identified. LEFT COMMON FEMORAL VEIN: Negative. LEFT FEMORAL VEIN: Negative. LEFT POPLITEAL VEIN: Negative. LEFT CALF VEINS: Thrombus is again visualized within the left posterior tibial and peroneal veins. ADDITIONAL FINDINGS: Left Alejo's cyst measuring 2.6 cm. IMPRESSION: 1. DVT is again visualized within the left posterior tibial and peroneal veins. 2. Previously visualized right peroneal vein DVT has resolved. 3. Left Alejo's cyst. Scribed by: Susie Marie RDMS, GIOVANNI, JOSEPH Scribed: 11/14/2021 2:57 PM I have reviewed the images, agree with this report, and edited this report as needed. Signer Name: Shane Restrepo MD Signed: 11/14/2021 3:59 PM Workstation Name: [id number]
--- NOTE | 2021-11-14 16:24 | Event Note ---
Date: 11/14/21 H&H responded to 2 unit pRBC transfusion. If H&H drops again, recommend multiphasic CT angiogram of the abdomen and pelvis (with and without contrast). Do not recommend IVC filter at this time. DVT are infrapopliteal. Recommend repeat DVT study in q weekly (x2 weeks) for re-evaluation. If there is propagation, then IVC filter can be placed. Placed orders for next week DVT study.
--- NOTE | 2021-11-14 16:57 | Progress Note ---
Assessment and Plan Assessment and plan: This is a 66-year-old female with past medical history of HTN and Obesity admitted for septic shock, s/p cardiac arrest with ROSC in the field now intubated and on ventilatory support Neuro: Acute Metabolic encephalopathy, agitation/anxiety -Avoid delirium -Reorientation as needed -Precedex gtt -Maintain sleep-wake cycle -CT head no acute focal parenchymal lesion in the brain -Neurology consulted, appreciate recommendations -EEG and MRI noted, Neuro recommend to cut down on sedation as possible Cardiac: Atrial fibrillation/atrial flutter s/p cardiac arrest, HFrEF, hypotension, h/o htn -Outside hospital cardiac arrest with ROSC -Cardiology consulted, appreciate recommendations - S/p Cardizem gtt- d/c due to low EF; now on PO Amio -s/p vasopressor support with levophed -Echocardiogram shows left ventricular systolic function severely decreased, LVEF 25 to 30%, no pericardial effusion -proBNP 5622 -BP monitoring per protocol Respiratory: Acute hypoxic respiratory failure, right pneumothorax, Angioedema (resolved) -CCM consulted, appreciate recommendations -Intubated on 10/29 and extubated on 11/11 -ABG and CXR per CCM -Bipap q HS and prn -NC during day -pulm hygiene -SPO2 monitoring -s/p right chest tube -s/p steroids for angioedema GI: Protein calorie malnutrion, transaminitis likely shocked liver -24 hours -2485 mL -PPI -NTR consulted for tube feedings -Trend LFTs -BM: 11/14 -failed ST eval : Acute kidney injury likely secondary to vasomotor nephropathy, hypernatremia -Nephrology consulted, appreciate recommendations -Krishna replaced 11/05 urinary retention -Strict intake and output -Renally dose medications -Avoid nephrotoxic medications -Daily weights -FWF -FeNa 0.05 indicating pre-renal -Medically treat hyperkalemia again -Trend BMP ID: Septic shock -COVID-19 PCR negative -S/p antibiotic therapy with Rocephin and azithromycin () -S/p Levophed gtt for hypotension -Follow-up culture data -Monitor WBC and temperature curve Endo: Hyperglycemia 9resolved) -Avoid hypoglycemia -Hbg A1C 6.7 -SSI and lantus q hs (titrate as needed) -Accu-Cheks q. 6 Heme: Acute DVT in the left posterior tibial vein and bilateral peroneal veins, Leukocytosis, Anemia, retroperitoneal bleed -D-dimer greater than 10,000 -CTA chest with no evidence of PE -Bilateral lower extremity ultrasound positive for DVT -Heparin gtt on hold d/t anemia -vasuclar surgery consulted, appreciate recommendations -recommended multiphasic CT angio of the abdomen and pelvis with and without contrast if H/H drops and does not recommend IVC filter at this time as the DVTs are infrapopliteal and recommends a DVT study weekly for 2 weeks -Trend CBC -SCDs to BLE while in bed -Transfuse hemoglobin less than 7 -Monitor for signs of bleeding The high probability of a clinically significant, sudden or life threatening deterioration of the [multi] system(s) required my full and direct attention, intervention and personal management. The aggregate critical care time was [60] minutes. This time is in addition to time spent performing reported procedures but includes the following: [x] Data Review and interpretation [x] Patient assessment and monitoring of vital signs [x] Documentation [x] Medication orders and management Disposition Plan: imcu Total Time Spent with Patient (Minutes): 60 History Interval history: This is a 66-year-old female with HTN and obesity who presented to the hospital on 10/29 via EMS with s/p cardiac arrest with CPR initiated by bystanders and upon EMS arrival a David airway was placed and ACLS was initiated. Patient had ROSC after 5-7 minutes and was started on epinephrine in route for hemodynamic support. Upon arrival to the emergency department patient GCS was noted to be 3 and she was biting the endotracheal tube with dilated pupils and copious vomitus and gastric secretions in the oropharynx/mouth/neck. David airway was removed and patient was intubated in the emergency department. Patient was admitted to the hospitalist service s/p cardiac arrest on sepsis and pneumonia protocol with consults to [facility]. Cardiology was consulted upon arrival to ICU. Hospital Course to Date: 10/30: Intubated and sedated, on fentanyl gtt. Open eyes spontaneously but does not follow any commands. On vasopressors, titrate as tolerated for MAP above 65. Patient febrile overnight, continue empiric IV Abx, culture data and COVID PCR pending. Patient is also s/p CT placement due to spontaneous pneumothorax. 2D echo is pending and Cardiology is consulted. 10/31: Patient remains intubated and following commands. Levophed drip stopped and potassium repleted. Patient started on tube feeding. Remains in soft bilateral restraints. 11/01: RN noted ST changes on BSM and 12 lead EKG obtained which showed ST. Given Ativan 1mg for agitation as she is maxed on fentanyl drip and IV push fentanyl did not seem to help. Patient was started on CPAP this morning by RT but remained on fentanyl drip and was having periods of apnea. Plan was to retry CPAP again in the p.m. with sedation off. 11/02: Rate increased r/t hypercapnea on ABG, sedation reduced. Given kionex for hyperkalemia and was started on levophed overnight for hypotension. 11/03: Overnight patient had tachycardia and was given Cardizem and Lopressor. Lopressor was repeated in the a.m. due to tachycardia. Patient will be started on amiodarone with a bolus per cardiology. Patient started on normal saline per liter per [facility] and steroids for angioedema. Noted to have bright red blood when suctioned from oh ETT. Remains on heparin drip as H/H is stable for now. Will reevaluate. Fentanyl drip was restarted last night due to agitation. Dr. Flores updated family today 11/04: Patient was sedated on fentanyl however off sedation is able to follow commands, a.m. labs completed in the p.m. and show hyperkalemia with increased renal function studies. Nephrology, neurology consulted by [facility]. Given Kayexalate, insulin and D50 for hyperkalemia. Patient remains on amiodarone. 11/05: Patient needed to be sedated on fentanyl again to today. overnight krishna was replaced. Hyperkalemia->given kionex 60 for 5.6. Repeat K 6-> Dr. Grant informed and requested bumex, kionex, insulin, d50, calcium gluconate and sodium bicarb with repeat BMP in 2 hours which were placed. HR remains elevated. 11/06: Patient remained in atrial fibrillation/atrial flutter with heart rate in the 150s despite being on amnio drip and was given amnio bolus, Cardizem bolus and started on Cardizem drip by cardiology. Patient is on beta-blockers p.o. scheduled and to feedings changed to Nepro. Kayexalate was given in the morning by nephrology due to hyperkalemia. 11/07: Patient is only responsive to mild stimuli, precedex added in an attempt to wean off fentanyl gtt to better assess her mental status. Neurology also on consult, pending MRI and EEG. Patient remains in Aflutter this am, HR in the 80 to 90s, still on amiodarone and heparin gtt. 11/08: Fentanyl gtt is off, only on precedex gtt. Patient is still not following any commands. MRI brain and EEG completed. Neuro recommendations noted, sedatives agents decreased. FWF added for hypernatremia and low K repleted, repeat labs ordered. Placed a call and spoke with patient's daughter, Eva Brown . She was updated on patient's conditions and status. All questions and concerns were voiced at this time. 11/09: Patient is awake and alert this am, following commands and appropriate. Remains on precedex gtt, plan for possible PST today. Hypertensive overnight, meds adjusted by Cardio and PRN Hydralazine added for SBP greater than 160. CT dislodged overnight, CXR is stable with no significant change. F/U CXR in the am. Patient's daughter, Eva Brown, visited with patient. She was updated on patient's status and goal of care for today. All questions and concerns were voiced at this time. 11/10: Mentation remains intact, still on precedex gtt. This am CXR noted still with fluid overload s/p X1 dose of IV lasix, good response from IV lasix overnight. Hypernatremia improved, D5W d/dayday. Still with persistent hypokalemia, continue electrolytes replacement and frequent lab check. Daily IV lasix and aldactone added by Cardio. Patient is also with persistent low grade fevers overnight, leukocytosis with mild improvement this am. Will get a repeat sputum culture, hold off on IV abx for now. Consider ID consult if fevers and leukocytosis persist. Patient tolerated PST X4hrs yesterday. PST again today, plan to wean to extubate if tolerated. 11/11: IAM overnight. Off precedex gtt and tolerated PST this am. Plan to wean to extubate today. Additional IV lasix given, plan to keep patient at a net neg ative balance for better lung compliance. F/U CXR in the am. K improved this am, repeat BMP this afternoon since diuresing. Remains with low grade fevers, leukocytosis downtrending, will continue to monitor. Speech/PT/OT ordered 11/12: S/p extubation, now stable on 3L NC. This am CXR noted with no significant changes, lasix changed to IV X4days BID. Drop in H&H this am, and Lt. flank ecchymosis noted. Heparin gtt on hold for now and orders placed for 1 unit of PRBCs and Ct Abd/Pelvis w/o con to r/o retroperitoneal bleed. Pending speech swallow eval, keep patient NPO for now. Patient is stable for IMCU status 11/13: Patient with increased WOB and tachycardia this am, patient was placed on Bipap and precedex gtt was resumed. CXR with mild improvement. CT Abd/Pelvis also reviewed large hematomas noted at the Lt. retroperitoneum and left posterior lateral abdominal wall. Heparin gtt is already on hold, patient is hemodynamically stable. Vascular Surgery consulted for possible IVC filter eval. Patient s/p 2units of PRBCs, will continue to trend H&H and transfuse if hbg is less than 7. Worsening renal function this am, IF diuretic on hold for now. Patient is also febrile with spike in wbcs most likely reactive to bleed, will panculture and hold off on IV Abx for now. Patient also failed speech bedside swallow eval yesterday, NGT in placed plan to resume enteral nutrition 11/14: Patient had bilateral lower extremity Doppler ultrasound and vascular surgery has recommended multiphasic CT angio of the abdomen and pelvis with and without contrast if H/H drops and does not recommend IVC filter at this time as the DVTs are infrapopliteal and recommends a DVT study weekly for 2 weeks. FWF 250 q4 ml per nephro. Started on as needed Xanax and p.o. amiodarone. She did not pass her ST evaluation today. Will be transferred to IMCU. Hospitalist Physical - Constitutional Vitals: Temp Pulse Resp BP Pulse Ox 98 F 106 H 37 H 147/87 100 11/14/21 12:00 11/14/21 16:00 11/14/21 16:00 11/14/21 16:00 11/14/21 16:00 General appearance: Present: no acute distress, obese - EENT Eyes: Present: PERRL, EOM intact ENT: hearing intact, dentition normal - Neck Neck: Present: normal ROM - Respiratory Respiratory effort: normal Respiratory: bilateral: CTA - Cardiovascular Rhythm: regular Heart Sounds: Present: S1 & S2, systolic murmur, diastolic murmur - Extremities Extremities: no ischemia, pulses intact, pulses symmetrical, normal temperature, normal color Peripheral Pulses: within normal limits - Abdominal General gastrointestinal: soft, non-distended, normal bowel sounds - Integumentary Integumentary: Present: warm, dry - Psychiatric Psychiatric: cooperative - Neurologic Neurologic: CNII-XII intact, moves all extremities - Allied Health Allied health notes reviewed: nursing, RT, social work HEART Score - HEART Score Troponin: Troponin T 1.150 ng/mL (0.00-0.029) H* D 10/29/21 22:34 Results - Labs CBC & Chem 7: 11/14/21 04:55 11/14/21 04:55 Labs: Laboratory Last Values WBC 23.9 K/mm3 (4.5-11.0) H 11/14/21 04:55 RBC 2.86 M/mm3 (3.65-5.03) L 11/14/21 04:55 Hgb 8.3 gm/dl (10.1-14.3) L 11/14/21 04:55 Hct 24.5 % (30.3-42.9) L 11/14/21 04:55 MCV 86 fl (79-97) 11/14/21 04:55 MCH 29 pg (28-32) 11/14/21 04:55 MCHC 34 % (30-34) 11/14/21 04:55 RDW 14.8 % (13.2-15.2) 11/14/21 04:55 Plt Count 260 K/mm3 (140-440) 11/14/21 04:55 Lymph % (Auto) 6.2 % (13.4-35.0) L 10/30/21 04:30 Isabela % (Auto) 5.5 % (0.0-7.3) 10/30/21 04:30 Eos % (Auto) 0.1 % (0.0-4.3) 10/30/21 04:30 Baso % (Auto) 0.1 % (0.0-1.8) 10/30/21 04:30 Lymph # (Auto) 1.0 K/mm3 (1.2-5.4) L 10/30/21 04:30 Isabela # (Auto) 0.9 K/mm3 (0.0-0.8) H 10/30/21 04:30 Eos # (Auto) 0.0 K/mm3 (0.0-0.4) 10/30/21 04:30 Baso # (Auto) 0.0 K/mm3 (0.0-0.1) 10/30/21 04:30 Add Manual Diff Complete 11/07/21 06:30 Total Counted 100 11/07/21 06:30 Seg Neutrophils % 88.1 % (40.0-70.0) H 10/30/21 04:30 Seg Neuts % (Manual) 77.0 % (40.0-70.0) H 11/07/21 06:30 Band Neutrophils % 1.0 % 11/07/21 06:30 Lymphocytes % (Manual) 11.0 % (13.4-35.0) L 11/07/21 06:30 Reactive Lymphs % (Man) 3.0 % 11/07/21 06:30 Monocytes % (Manual) 2.0 % (0.0-7.3) 11/07/21 06:30 Eosinophils % (Manual) 0 % (0.0-4.3) 11/07/21 06:30 Basophils % (Manual) 0 % (0.0-1.8) 11/07/21 06:30 Metamyelocytes % 1.0 % 11/07/21 06:30 Myelocytes % 5.0 % 11/07/21 06:30 Promyelocytes % 0 % 11/07/21 06:30 Blast Cells % 0 % 11/07/21 06:30 Nucleated RBC % 2.0 % (0.0-0.9) H 11/07/21 06:30 Seg Neutrophils # 14.2 K/mm3 (1.8-7.7) H 10/30/21 04:30 Seg Neutrophils # Man 12.3 K/mm3 (1.8-7.7) H 11/07/21 06:30 Band Neutrophils # 0.2 K/mm3 11/07/21 06:30 Lymphocytes # (Manual) 1.8 K/mm3 (1.2-5.4) 11/07/21 06:30 Abs React Lymphs (Man) 0.5 K/mm3 11/07/21 06:30 Monocytes # (Manual) 0.3 K/mm3 (0.0-0.8) 11/07/21 06:30 Eosinophils # (Manual) 0.0 K/mm3 (0.0-0.4) 11/07/21 06:30 Basophils # (Manual) 0.0 K/mm3 (0.0-0.1) 11/07/21 06:30 Metamyelocytes # 0.2 K/mm3 11/07/21 06:30 Myelocytes # 0.8 K/mm3 11/07/21 06:30 Promyelocytes # 0.0 K/mm3 11/07/21 06:30 Blast Cells # 0.0 K/mm3 11/07/21 06:30 WBC Morphology Not Reportable 11/07/21 06:30 Hypersegmented Neuts Not Reportable 11/07/21 06:30 Hyposegmented Neuts Not Reportable 11/07/21 06:30 Hypogranular Neuts Not Reportable 11/07/21 06:30 Smudge Cells Not Reportable 11/07/21 06:30 Toxic Granulation Not Reportable 11/07/21 06:30 Toxic Vacuolation Not Reportable 11/07/21 06:30 Dohle Bodies Not Reportable 11/07/21 06:30 Pelger-Huet Anomaly Not Reportable 11/07/21 06:30 Manny Rods Not Reportable 11/07/21 06:30 Platelet Estimate Consistent w auto 11/07/21 06:30 Clumped Platelets Not Reportable 11/07/21 06:30 Plt Clumps, EDTA Not Reportable 11/07/21 06:30 Large Platelets 1+ 11/07/21 06:30 Giant Platelets Not Reportable 11/07/21 06:30 Platelet Satelliting Not Reportable 11/07/21 06:30 Plt Morphology Comment Not Reportable 11/07/21 06:30 RBC Morphology Not Reportable 11/07/21 06:30 Dimorphic RBCs Not Reportable 11/07/21 06:30 Polychromasia Not Reportable 11/07/21 06:30 Hypochromasia 1+ 11/07/21 06:30 Poikilocytosis Not Reportable 11/07/21 06:30 Anisocytosis Not Reportable 11/07/21 06:30 Microcytosis Not Reportable 11/07/21 06:30 Macrocytosis Not Reportable 11/07/21 06:30 Spherocytes 1+ 11/07/21 06:30 Pappenheimer Bodies Not Reportable 11/07/21 06:30 Sickle Cells Not Reportable 11/07/21 06:30 Target Cells 1+ 11/07/21 06:30 Tear Drop Cells Not Reportable 11/07/21 06:30 Ovalocytes Not Reportable 11/07/21 06:30 Helmet Cells Not Reportable 11/07/21 06:30 [place] Bodies Not Reportable 11/07/21 06:30 [place] Rings Not Reportable 11/07/21 06:30 [place] Cells Not Reportable 11/07/21 06:30 Bite Cells Not Reportable 11/07/21 06:30 Crenated Cell Not Reportable 11/07/21 06:30 Elliptocytes Not Reportable 11/07/21 06:30 Acanthocytes (Spur) Not Reportable 11/07/21 06:30 Rouleaux Not Reportable 11/07/21 06:30 Hemoglobin C Crystals Not Reportable 11/07/21 06:30 Schistocytes Not Reportable 11/07/21 06:30 Malaria parasites Not Reportable 11/07/21 06:30 Magdy Bodies Not Reportable 11/07/21 06:30 Hem Pathologist Commnt No 11/07/21 06:30 PT 17.2 Sec. (12.2-14.9) H 10/30/21 16:30 INR 1.27 (0.87-1.13) H 10/30/21 16:30 APTT 44.4 Sec. (24.2-36.6) H 10/30/21 16:30 D-Dimer > 50221 ng/mlDDU (0-234) H 10/30/21 Unknown Heparin Anti-Xa Level 0.62 U.I./ml (0.3-0.7) 11/12/21 03:30 ABG pH 7.475 pH Units (7.350-7.450) H 11/11/21 13:53 ABG pCO2 45.0 mm Hg 11/11/21 13:53 ABG pO2 64.1 mm Hg (80.0-90.0) L 11/11/21 13:53 ABG HCO3 32.4 mmol/L (20.0-26.0) H 11/11/21 13:53 ABG O2 Saturation 96.3 % (95.0-99.0) 11/11/21 13:53 ABG O2 Content 10.1 (0.0-44) 11/11/21 13:53 ABG Base Excess 8.0 mmol/L (-2.0-3.0) H 11/11/21 13:53 ABG Hemoglobin 7.6 gm/dl (12.0-16.0) L 11/11/21 13:53 ABG Carboxyhemoglobin 1.8 % (0.0-5.0) 11/11/21 13:53 ABG Methemoglobin 0.5 % (0.0-1.5) 11/11/21 13:53 Oxyhemoglobin 94.0 % (95.0-99.0) L 11/11/21 13:53 FiO2 32 % 11/11/21 13:53 Sodium 148 mmol/L (137-145) H 11/14/21 04:55 Potassium 3.6 mmol/L (3.6-5.0) D 11/14/21 04:55 Chloride 109.0 mmol/L (98-107) H 11/14/21 04:55 Carbon Dioxide 26 mmol/L (22-30) 11/14/21 04:55 Anion Gap 17 mmol/L 11/14/21 04:55 BUN 42 mg/dL (7-17) H 11/14/21 04:55 Creatinine 1.6 mg/dL (0.6-1.2) H 11/14/21 04:55 Estimated GFR 39 ml/min 11/14/21 04:55 BUN/Creatinine Ratio 26 % 11/14/21 04:55 Glucose 184 mg/dL (65-100) H 11/14/21 04:55 POC Glucose 154 mg/dL (70-105) H 11/14/21 11:35 Hemoglobin A1c 6.7 % (4-6) H 10/31/21 04:30 Lactic Acid 0.70 mmol/L (0.7-2.0) 10/31/21 15:45 Calcium 8.0 mg/dL (8.4-10.2) L 11/14/21 04:55 Phosphorus 3.20 mg/dL (2.5-4.5) D 11/14/21 04:55 Magnesium 2.20 mg/dL (1.7-2.3) 11/14/21 04:55 Ferritin 208.4 ng/mL (10.0-200.0) H 10/30/21 Unknown Total Bilirubin < 0.20 mg/dL (0.1-1.2) 11/06/21 02:35 AST 21 units/L (5-40) 11/06/21 02:35 ALT 77 units/L (7-56) H 11/06/21 02:35 Alkaline Phosphatase 84 units/L (35-129) 11/06/21 02:35 Ammonia 31.0 umol/L (25-60) 10/29/21 15:10 Lactate Dehydrogenase 469 units/L (91-180) H 10/30/21 Unknown Troponin T 1.150 ng/mL (0.00-0.029) H* D 10/29/21 22:34 C-Reactive Protein 13.40 mg/dL (0.00-1.30) H 10/30/21 Unknown Total Protein 6.3 g/dL (6.3-8.2) 11/06/21 02:35 Albumin 3.0 g/dL (3.9-5) L 11/06/21 02:35 Albumin/Globulin Ratio 0.9 % 11/06/21 02:35 Triglycerides 68 mg/dL (2-149) 10/29/21 19:40 Cholesterol 98 mg/dL (50-199) 10/29/21 19:40 LDL Cholesterol Direct 43 mg/dL (50-130) L 10/29/21 19:40 HDL Cholesterol 50 mg/dL (40-59) 10/29/21 19:40 Cholesterol/HDL Ratio 1.96 % 10/29/21 19:40 Procalcitonin 61.95 ng/mL (<0.15) 10/30/21 Unknown TSH 3.080 mlU/mL (0.270-4.200) 10/29/21 15:10 Urine Color Yellow (Yellow) 11/13/21 08:30 Urine Turbidity Slightly-cloudy (Clear) 11/13/21 08:30 Urine pH 6.0 (5.0-7.0) 11/13/21 08:30 Ur Specific [place] 1.010 (1.003-1.030) 11/13/21 08:30 Urine Protein <15 mg/dl mg/dL (Negative) 11/13/21 08:30 Urine Glucose (UA) Neg mg/dL (Negative) 11/13/21 08:30 Urine Ketones Tr mg/dL (Negative) 11/13/21 08:30 Urine Blood Sm (Negative) 11/13/21 08:30 Urine Nitrite Neg (Negative) 11/13/21 08:30 Urine Bilirubin Neg (Negative) 11/13/21 08:30 Urine Urobilinogen < 2.0 mg/dL (<2.0) 11/13/21 08:30 Ur Leukocyte Esterase Neg (Negative) 11/13/21 08:30 Urine WBC (Auto) < 1.0 /HPF (0.0-6.0) 11/13/21 08:30 Urine RBC (Auto) < 1.0 /HPF (0.0-6.0) 11/13/21 08:30 U Epithel Cells (Auto) < 1.0 /HPF (0-13.0) 11/13/21 08:30 Urine Mucus Few /HPF 10/29/21 18:15 Urine Eosinophils None seen (None Seen) 11/04/21 Unknown Urine Creatinine 190.9 mg/dL (0.1-20.0) H 11/04/21 Unknown Protein/Creatinin Ratio 0.90 11/04/21 Unknown Urine Sodium 10 mmol/L 11/04/21 Unknown Urine Total Protein 172 mg/dL (5-11.8) H 11/04/21 Unknown Salicylates < 0.3 mg/dL (2.8-20.0) L 10/29/21 15:10 Urine Opiates Screen Negative 10/29/21 18:15 Urine Methadone Screen Negative 10/29/21 18:15 Acetaminophen 5.0 ug/mL (10.0-30.0) L 10/29/21 15:10 Ur Barbiturates Screen Negative 10/29/21 18:15 Ur Phencyclidine Scrn Negative 10/29/21 18:15 Ur Amphetamines Screen Negative 10/29/21 18:15 U Benzodiazepines Scrn Negative 10/29/21 18:15 Urine Cocaine Screen Negative 10/29/21 18:15 U Marijuana (THC) Screen Negative 10/29/21 18:15 Drugs of Abuse Note Disclamer 10/29/21 18:15 Plasma/Serum Alcohol < 0.01 % (0-0.07) 10/29/21 15:10 Coronavirus (PCR) Negative (Negative) 10/30/21 Unknown Blood Type O POSITIVE 11/12/21 04:15 Antibody Screen Negative 11/12/21 04:15 Crossmatch See Detail 11/12/21 04:15 Microbiology: Microbiology 11/13/21 08:38 Peripheral/Venous Blood Culture - Preliminary NO GROWTH AFTER 24 HOURS 11/13/21 08:38 Peripheral/Venous Blood Culture - Preliminary NO GROWTH AFTER 24 HOURS Krishna/IV: Voiding Method Indwelling Catheter Active Medications - Current Medications Current Medications: Generic Name Dose Route Start Last Admin Trade Name Freq PRN Reason Stop Dose Admin Acetaminophen 650 mg 10/29/21 17:04 11/11/21 13:35 Acetaminophen 325 Mg Tab PO 650 mg Q6H PRN Administration Pain, Mild (1-3) Acetaminophen 650 mg 10/29/21 17:04 11/12/21 22:53 Acetaminophen 650 Mg Rect Supp [place] 650 mg Q6H PRN Administration Pain MILD(1-3)/Fever >100.5/NIEVES Alprazolam 0.25 mg 11/14/21 14:29 11/14/21 15:40 Alprazolam 0.25 Mg Tab PO 0.25 mg Q8H PRN Administration Anxiety Amiodarone HCl 200 mg 11/14/21 11:00 11/14/21 11:31 Amiodarone 200 Mg Tab PO 200 mg DAILY RAMON Administration Lipase/Protease/Amylase 1 each 10/31/21 08:56 Lipase 10,500/Protease 25,000/Amylase 43,750 (Units) Dr Cachorro MAURICETUBE PRN PRN For Clogged Feeding Tube Dextrose 0 ml 11/04/21 13:48 11/12/21 05:45 Dextrose 10% *Hypoglycemia IV 50 ml PRN PRN Administration Hypoglycemia Famotidine 10 mg 11/06/21 10:00 11/14/21 10:16 Famotidine 10 Mg Tab PO 10 mg BID RAMON Administration Fentanyl 50 mcg 11/04/21 14:32 11/09/21 00:01 Fentanyl 100 Mcg/2 Ml Inj IV 50 mcg Q2H PRN Administration Pain, Moderate (4-6) Hydrophilic Ointment 1 applic 10/29/21 14:29 11/09/21 08:51 Lip Therapy Vaseline TP 1 applic Q2HR PRN Administration Dry Lips Dexmedetomidine HCl 400 mcg/ 100 mls @ 5.335 mls/hr 11/11/21 21:00 11/14/21 10:16 Sodium Chloride IV 0.5 mcg/kg/hr TITRATE RAMON 13.338 mls/hr Administration Protocol 0.2 MCG/KG/HR Insulin Glargine 10 units 11/13/21 22:00 11/14/21 00:10 Insulin Glargine 100 Units/Ml SUB-Q 10 units QHS RAMON Administration Insulin Human Lispro 0 unit 10/30/21 16:00 11/14/21 12:27 Insulin Lispro 100 Unit/Ml SUB-Q 3 unit Q6HR RAMON Administration Protocol Metoprolol Tartrate 50 mg 11/07/21 12:00 11/14/21 11:30 Metoprolol Tartrate 50 Mg Tab FEEDTUBE Not Given Q6H RAMON Multi-Ingred Cream/Lotion/Oil/Oint 1 applic 10/29/21 14:29 11/06/21 09:25 Mineral Oil/Petrolatum, White Ophth Oint 3.5 Gm OU 1 applic Q4HR PRN Administration Dry Eye(s) Senna/Docusate Sodium 1 tab 10/29/21 15:00 11/14/21 10:17 Sennosides/Docusate Sodium 8.6/50 Mg Tab FEEDTUBE 1 tab BID RAMON Administration Simple Syrup 15 ml 10/31/21 08:56 Simple Syrup 15 Ml FEEDTUBE PRN PRN Hypoglycemia Simple Syrup 30 ml 10/31/21 08:56 Simple Syrup 15 Ml FEEDTUBE PRN PRN Hypoglycemia Sodium Bicarbonate 325 mg 10/31/21 08:56 Sodium Bicarbonate 325 Mg Tab FEEDTUBE PRN PRN For Clogged Feeding Tube Sodium Chloride 10 ml 10/29/21 22:00 11/14/21 10:17 Sodium Chloride 0.9% 10 Ml Flush Syringe IV 10 ml BID RAMON Administration Sodium Chloride 10 ml 10/29/21 17:04 Sodium Chloride 0.9% 10 Ml Flush Syringe IV PRN PRN LINE FLUSH Spironolactone 25 mg 11/10/21 10:00 11/14/21 10:19 Spironolactone 25 Mg Tab PO 25 mg QDAY RAMON Administration Nutrition/Malnutrition Assess - Dietary Evaluation Nutrition/Malnutrition Findings: Nutrition Notes Start: 10/30/21 09:50 Freq: Status: Active Protocol: Document 11/08/21 09:54 MEENU (Rec: 11/08/21 10:20 MEENU [id number]) Nutrition Notes Initial or Follow up Reassessment Current Diagnosis Acute Kidney Injury,Sepsis, Heart Failure,Respiratory Failure Other Pertinent Diagnosis SIERRA/ATN, s/p Cardiac Arrest, DVT, Anemia, Hyperkalemia. Current Diet TF-Nepro w/CARBSTEADY @ 37 ml/ hr (since D 11/06). Labs/Tests 11/08: Na 151, K 3.1, Cl 107.3 , CO2 31, BUN 82, Crea 1.8, Glu 232, Ca 8.1. Pertinent Medications 11/08: Insulin, others nutritionally unremarkable. Height 5 ft 10 in Weight 106.7 kg [place] Body Weight (kg) 68.18 BMI 33.7 Weight change and time frame No body weight change reported in 1 week. Weight Status Obese Subjective/Other Information RD consult for routine F/U on TF tolerance. TF continues as prescribed and well tolerated, according to RN over the phone. Pt continues on Mechanical ventilation. Percent of energy/protein needs met: Prescribed Nepro w/CARBSTEADY @ 37 ml/hr provides for energy /protein needs (1,598 Kcal/72 g) during LOS, 100% Kcal; 100% AA. Burn Absent Trauma Absent GI Symptoms None Food Allergy No Skin Integrity/Comment Clear, warm, dry. Current % PO Other Minimum of two criteria No #1 Nutrition Diagnosis Inadequate oral intake Diagnosis Progress(for reassessment Continues documentation) Is patient on ventilator? Yes Is Patient Ambulatory and/or Out of Bed No [facility] 2022.848 Kcal/Kg value to use for calculation 15 Approximate Energy Requirements Using 1601 kcal/Kg Calculation Used for Recommendations Kcal/kg Additional Notes Protein: 0.8-1.2 g/Kg IBW; 70- 105 g/day. Fluids: 1 ml/Kcal, or as per MD. Nutrition Intervention Nutrition Support: Continue Nepro w/CARBSTEADY @ 37 ml/hr. Flush: 160 ml water Q 4 hr, or as per MD. Kcal 1,598 Protein (gm) 72 Carbohydrates (gm) 143 Fat (gm) 85 Fluid (mL) 646 Fiber (gm) 11 % RDI: 100% Kcal; 100% AA. Goal #1 Provide at least 75% of energy /protein needs through Enteral Feeding during LOS. Goal #2 Maintain body weight within +/ -3% of admission body weight during LOS. Follow-Up By: 11/15/21 Additional Comments Continue monitoring TF tolerance and BM.
[2021-11-14] MEDS: FREE WATER PO SCH ×2 (17:47→21:42)
[2021-11-14] MEDS: fentaNYL 100 MCG/2 ML INJ IV PRN (21:45)
[2021-11-14] MEDS: ACETAMINOPHEN 325 MG TAB PO PRN (21:46)
[2021-11-15] MEDS: INSULIN LISPRO 100 UNIT/ML SUB-Q SCH ×4 (00:58→18:24)
[2021-11-15] MEDS: METOPROLOL TARTRATE 50 MG TAB FEEDTUBE SCH ×5 (00:58→23:01)
[2021-11-15] MEDS: FREE WATER PO SCH ×6 (01:01→21:38)
[2021-11-15] MEDS: ALPRAZolam 0.25 MG TAB PO PRN ×3 (01:01→21:38)
[2021-11-15 05:32] LABS: Calcium 8.1 mg/dL (8.4-10.2)
[2021-11-15] MEDS: ACETAMINOPHEN 325 MG TAB PO PRN (06:24)
--- NOTE | 2021-11-15 08:15 | Progress Note ---
Assessment and Plan Assessment and plan: Assessment and plan: This is a 66-year-old female with past medical history of HTN and Obesity admitted for septic shock, s/p cardiac arrest with ROSC in the field now intubated and on ventilatory support Neuro: Acute Metabolic encephalopathy, agitation/anxiety -Avoid delirium -Reorientation as needed -Precedex gtt -Maintain sleep-wake cycle -CT head no acute focal parenchymal lesion in the brain -Neurology consulted, appreciate recommendations -EEG and MRI noted, Neuro recommend to cut down on sedation as possible Cardiac: Atrial fibrillation/atrial flutter s/p cardiac arrest, HFrEF, hypotension, h/o htn -Outside hospital cardiac arrest with ROSC -Cardiology consulted, appreciate recommendations - S/p Cardizem gtt- d/c due to low EF; now on PO Amio -s/p vasopressor support with levophed -Echocardiogram shows left ventricular systolic function severely decreased, LVEF 25 to 30%, no pericardial effusion -proBNP 5622 -BP monitoring per protocol Respiratory: Acute hypoxic respiratory failure, right pneumothorax, Angioedema (resolved) -CCM consulted, appreciate recommendations -Intubated on 10/29 and extubated on 11/11 -ABG and CXR per CCM -Bipap q HS and prn -NC during day -pulm hygiene -SPO2 monitoring -s/p right chest tube -s/p steroids for angioedema GI: Protein calorie malnutrion, transaminitis likely shocked liver -24 hours -2485 mL -PPI -NTR consulted for tube feedings -Trend LFTs -BM: 11/14 -failed ST eval : Acute kidney injury likely secondary to vasomotor nephropathy, hypernatremia -Nephrology consulted, appreciate recommendations -Krishna replaced 11/05 urinary retention -Strict intake and output -Renally dose medications -Avoid nephrotoxic medications -Daily weights -FWF -FeNa 0.05 indicating pre-renal -Medically treat hyperkalemia again -Trend BMP ID: Septic shock -COVID-19 PCR negative -S/p antibiotic therapy with Rocephin and azithromycin () -S/p Levophed gtt for hypotension -Follow-up culture data -Monitor WBC and temperature curve Endo: Hyperglycemia 9resolved) -Avoid hypoglycemia -Hbg A1C 6.7 -SSI and lantus q hs (titrate as needed) -Accu-Cheks q. 6 Heme: Acute DVT in the left posterior tibial vein and bilateral peroneal veins, Leukocytosis, Anemia, retroperitoneal bleed -D-dimer greater than 10,000 -CTA chest with no evidence of PE -Bilateral lower extremity ultrasound positive for DVT -Heparin gtt on hold d/t anemia -vasuclar surgery consulted, appreciate recommendations -recommended multiphasic CT angio of the abdomen and pelvis with and without contrast if H/H drops and does not recommend IVC filter at this time as the DVTs are infrapopliteal and recommends a DVT study weekly for 2 weeks -Trend CBC -SCDs to BLE while in bed -Transfuse hemoglobin less than 7 -Monitor for signs of bleeding The high probability of a clinically significant, sudden or life threatening deterioration of the [multi] system(s) required my full and direct attention, intervention and personal management. The aggregate critical care time was [60] minutes. This time is in addition to time spent performing reported procedures but includes the following: [x] Data Review and interpretation [x] Patient assessment and monitoring of vital signs [x] Documentation [x] Medication orders and management Disposition Plan: imcu Total Time Spent with Patient (Minutes): 60 History Interval history: Interval history: This is a 66-year-old female with HTN and obesity who presented to the hospital on 10/29 via EMS with s/p cardiac arrest with CPR initiated by bystanders and upon EMS arrival a David airway was placed and ACLS was initiated. Patient had ROSC after 5-7 minutes and was started on epinephrine in route for hemodynamic support. Upon arrival to the emergency department patient GCS was noted to be 3 and she was biting the endotracheal tube with dilated pupils and copious vomitus and gastric secretions in the oropharynx/mouth/neck. David airway was removed and patient was intubated in the emergency department. Patient was admitted to the hospitalist service s/p cardiac arrest on sepsis and pneumonia protocol with consults to [facility]. Cardiology was consulted upon arrival to ICU. Hospital Course to Date: 10/30: Intubated and sedated, on fentanyl gtt. Open eyes spontaneously but does not follow any commands. On vasopressors, titrate as tolerated for MAP above 65. Patient febrile overnight, continue empiric IV Abx, culture data and COVID PCR pending. Patient is also s/p CT placement due to spontaneous pneumothorax. 2D echo is pending and Cardiology is consulted. 10/31: Patient remains intubated and following commands. Levophed drip stopped and potassium repleted. Patient started on tube feeding. Remains in soft bila teral restraints. 11/01: RN noted ST changes on BSM and 12 lead EKG obtained which showed ST. Given Ativan 1mg for agitation as she is maxed on fentanyl drip and IV push fentanyl did not seem to help. Patient was started on CPAP this morning by RT but remained on fentanyl drip and was having periods of apnea. Plan was to retry CPAP again in the p.m. with sedation off. 11/02: Rate increased r/t hypercapnea on ABG, sedation reduced. Given kionex for hyperkalemia and was started on levophed overnight for hypotension. 11/03: Overnight patient had tachycardia and was given Cardizem and Lopressor. Lopressor was repeated in the a.m. due to tachycardia. Patient will be started on amiodarone with a bolus per cardiology. Patient started on normal saline per liter per [facility] and steroids for angioedema. Noted to have bright red blood when suctioned from oh ETT. Remains on heparin drip as H/H is stable for now. Will reevaluate. Fentanyl drip was restarted last night due to agitation. Dr. Ebenezer stewart updated family today 11/04: Patient was sedated on fentanyl however off sedation is able to follow commands, a.m. labs completed in the p.m. and show hyperkalemia with increased renal function studies. Nephrology, neurology consulted by [facility]. Given Kayexalate, insulin and D50 for hyperkalemia. Patient remains on amiodarone. 11/05: Patient needed to be sedated on fentanyl again to today. overnight krishna was replaced. Hyperkalemia->given kionex 60 for 5.6. Repeat K 6-> Dr. Grant informed and requested bumex, kionex, insulin, d50, calcium gluconate and sodium bicarb with repeat BMP in 2 hours which were placed. HR remains elevated. 11/06: Patient remained in atrial fibrillation/atrial flutter with heart rate in the 150s despite being on amnio drip and was given amnio bolus, Cardizem bolus and started on Cardizem drip by cardiology. Patient is on beta-blockers p.o. scheduled and to feedings changed to Nepro. Kayexalate was given in the morning by nephrology due to hyperkalemia. 11/07: Patient is only responsive to mild stimuli, precedex added in an attempt to wean off fentanyl gtt to better assess her mental status. Neurology also on consult, pending MRI and EEG. Patient remains in Aflutter this am, HR in the 80 to 90s, still on amiodarone and heparin gtt. 11/08: Fentanyl gtt is off, only on precedex gtt. Patient is still not following any commands. MRI brain and EEG completed. Neuro recommendations noted, sedatives agents decreased. FWF added for hypernatremia and low K repleted, repeat labs ordered. Placed a call and spoke with patient's daughter, Eva Brown . She was updated on patient's conditions and status. All questions and concerns were voiced at this time. 11/09: Patient is awake and alert this am, following commands and appropriate. Remains on precedex gtt, plan for possible PST today. Hypertensive overnight, meds adjusted by Cardio and PRN Hydralazine added for SBP greater than 160. CT dislodged overnight, CXR is stable with no significant change. F/U CXR in the am. Patient's daughter, Eva Brown, visited with patient. She was updated on patient's status and goal of care for today. All questions and concerns were voiced at this time. 11/10: Mentation remains intact, still on precedex gtt. This am CXR noted still with fluid overload s/p X1 dose of IV lasix, good response from IV lasix overnight. Hypernatremia improved, D5W d/dayday. Still with persistent hypokalemia, continue electrolytes replacement and frequent lab check. Daily IV lasix and aldactone added by Cardio. Patient is also with persistent low grade fevers overnight, leukocytosis with mild improvement this am. Will get a repeat sputum culture, hold off on IV abx for now. Consider ID consult if fevers and leukocytosis persist. Patient tolerated PST X4hrs yesterday. PST again today, plan to wean to extubate if tolerated. 11/11: IAM overnight. Off precedex gtt and tolerated PST this am. Plan to wean to extubate today. Additional IV lasix given, plan to keep patient at a net negative balance for better lung compliance. F/U CXR in the am. K improved this am, repeat BMP this afternoon since diuresing. Remains with low grade fevers, leukocytosis downtrending, will continue to monitor. Speech/PT/OT ordered 11/12: S/p extubation, now stable on 3L NC. This am CXR noted with no significant changes, lasix changed to IV X4days BID. Drop in H&H this am, and Lt. flank ecchymosis noted. Heparin gtt on hold for now and orders placed for 1 unit of PRBCs and Ct Abd/Pelvis w/o con to r/o retroperitoneal bleed. Pending speech swallow eval, keep patient NPO for now. Patient is stable for IMCU status 11/13: Patient with increased WOB and tachycardia this am, patient was placed on Bipap and precedex gtt was resumed. CXR with mild improvement. CT Abd/Pelvis also reviewed large hematomas noted at the Lt. retroperitoneum and left posterior lateral abdominal wall. Heparin gtt is already on hold, patient is hemodynamically stable. Vascular Surgery consulted for possible IVC filter eval. Patient s/p 2units of PRBCs, will continue to trend H&H and transfuse if hbg is less than 7. Worsening renal function this am, IF diuretic on hold for now. Patient is also febrile with spike in wbcs most likely reactive to bleed, will panculture and hold off on IV Abx for now. Patient also failed speech bedside swallow eval yesterday, NGT in placed plan to resume enteral nutrition 11/14: Patient had bilateral lower extremity Doppler ultrasound and vascular surgery has recommended multiphasic CT angio of the abdomen and pelvis with and without contrast if H/H drops and does not recommend IVC filter at this time as the DVTs are infrapopliteal and recommends a DVT study weekly for 2 weeks. FWF 250 q4 ml per nephro. Started on as needed Xanax and p.o. amiodarone. She did not pass her ST evaluation today. Will be transferred to IMCU. 11/15: Resting comfortably on encounter. Speech cleared for pureed diet. Remains on 3l satting 98 % on bedside encounter. Does not appear to be in respiratory distress. Will continue to hold AC, No ivc filter planned at this time. qweekly doppler to monitor for migration of DVT per vascular. If demonstrated, will consider IVC filter. CBC ordered for tomorrow, will continue monitoring in light of retroperitoneal hematoma. FWF increased by nephrology to 350cc q4hr d/t hypernatremia. UOP/renal function both improved. D/w cardiology, will continue amiodorone an additional 24hrs. Plan to change dosing of metoprolol. Continue to wean off of precedex. Continue xanax scheduled for anxiety. physical therapy recs noted, fernanda / ltac will discuss with CM. Continue IMCU monitoring. Hospitalist Physical - Physical exam Narrative exam: General appearance: Present: no acute distress, obese - EENT Eyes: Present: PERRL, EOM intact ENT: hearing intact, dentition normal - Neck Neck: Present: normal ROM - Respiratory Respiratory effort: normal Respiratory: bilateral: CTA - Cardiovascular Rhythm: regular Heart Sounds: Present: S1 & S2, systolic murmur, diastolic murmur - Extremities Extremities: no ischemia, pulses intact, pulses symmetrical, normal temperature, normal color Peripheral Pulses: within normal limits - Abdominal General gastrointestinal: soft, non-distended, normal bowel sounds - Integumentary Integumentary: Present: warm, dry, bruising from hematoma noted. - Psychiatric Psychiatric: cooperative - Neurologic Neurologic: CNII-XII intact, moves all extremities - Allied Health Allied health notes reviewed: nursing, RT, social work - Constitutional Vitals: Temp Pulse Resp BP Pulse Ox 100.2 F H 82 17 160/81 99 11/15/21 04:00 11/15/21 06:23 11/15/21 06:24 11/15/21 06:23 11/15/21 04:00 General appearance: Present: no acute distress, obese HEART Score - HEART Score Troponin: Troponin T 1.150 ng/mL (0.00-0.029) H* D 10/29/21 22:34 Results - Labs CBC & Chem 7: 11/14/21 04:55 11/15/21 04:36 Labs: Laboratory Last Values WBC 23.9 K/mm3 (4.5-11.0) H 11/14/21 04:55 RBC 2.86 M/mm3 (3.65-5.03) L 11/14/21 04:55 Hgb 8.3 gm/dl (10.1-14.3) L 11/14/21 04:55 Hct 24.5 % (30.3-42.9) L 11/14/21 04:55 MCV 86 fl (79-97) 11/14/21 04:55 MCH 29 pg (28-32) 11/14/21 04:55 MCHC 34 % (30-34) 11/14/21 04:55 RDW 14.8 % (13.2-15.2) 11/14/21 04:55 Plt Count 260 K/mm3 (140-440) 11/14/21 04:55 Lymph % (Auto) 6.2 % (13.4-35.0) L 10/30/21 04:30 Henderson % (Auto) 5.5 % (0.0-7.3) 10/30/21 04:30 Eos % (Auto) 0.1 % (0.0-4.3) 10/30/21 04:30 Baso % (Auto) 0.1 % (0.0-1.8) 10/30/21 04:30 Lymph # (Auto) 1.0 K/mm3 (1.2-5.4) L 10/30/21 04:30 Henderson # (Auto) 0.9 K/mm3 (0.0-0.8) H 10/30/21 04:30 Eos # (Auto) 0.0 K/mm3 (0.0-0.4) 10/30/21 04:30 Baso # (Auto) 0.0 K/mm3 (0.0-0.1) 10/30/21 04:30 Add Manual Diff Complete 11/07/21 06:30 Total Counted 100 11/07/21 06:30 Seg Neutrophils % 88.1 % (40.0-70.0) H 10/30/21 04:30 Seg Neuts % (Manual) 77.0 % (40.0-70.0) H 11/07/21 06:30 Band Neutrophils % 1.0 % 11/07/21 06:30 Lymphocytes % (Manual) 11.0 % (13.4-35.0) L 11/07/21 06:30 Reactive Lymphs % (Man) 3.0 % 11/07/21 06:30 Monocytes % (Manual) 2.0 % (0.0-7.3) 11/07/21 06:30 Eosinophils % (Manual) 0 % (0.0-4.3) 11/07/21 06:30 Basophils % (Manual) 0 % (0.0-1.8) 11/07/21 06:30 Metamyelocytes % 1.0 % 11/07/21 06:30 Myelocytes % 5.0 % 11/07/21 06:30 Promyelocytes % 0 % 11/07/21 06:30 Blast Cells % 0 % 11/07/21 06:30 Nucleated RBC % 2.0 % (0.0-0.9) H 11/07/21 06:30 Seg Neutrophils # 14.2 K/mm3 (1.8-7.7) H 10/30/21 04:30 Seg Neutrophils # Man 12.3 K/mm3 (1.8-7.7) H 11/07/21 06:30 Band Neutrophils # 0.2 K/mm3 11/07/21 06:30 Lymphocytes # (Manual) 1.8 K/mm3 (1.2-5.4) 11/07/21 06:30 Abs React Lymphs (Man) 0.5 K/mm3 11/07/21 06:30 Monocytes # (Manual) 0.3 K/mm3 (0.0-0.8) 11/07/21 06:30 Eosinophils # (Manual) 0.0 K/mm3 (0.0-0.4) 11/07/21 06:30 Basophils # (Manual) 0.0 K/mm3 (0.0-0.1) 11/07/21 06:30 Metamyelocytes # 0.2 K/mm3 11/07/21 06:30 Myelocytes # 0.8 K/mm3 11/07/21 06:30 Promyelocytes # 0.0 K/mm3 11/07/21 06:30 Blast Cells # 0.0 K/mm3 11/07/21 06:30 WBC Morphology Not Reportable 11/07/21 06:30 Hypersegmented Neuts Not Reportable 11/07/21 06:30 Hyposegmented Neuts Not Reportable 11/07/21 06:30 Hypogranular Neuts Not Reportable 11/07/21 06:30 Smudge Cells Not Reportable 11/07/21 06:30 Toxic Granulation Not Reportable 11/07/21 06:30 Toxic Vacuolation Not Reportable 11/07/21 06:30 Dohle Bodies Not Reportable 11/07/21 06:30 Pelger-Huet Anomaly Not Reportable 11/07/21 06:30 Manny Rods Not Reportable 11/07/21 06:30 Platelet Estimate Consistent w auto 11/07/21 06:30 Clumped Platelets Not Reportable 11/07/21 06:30 Plt Clumps, EDTA Not Reportable 11/07/21 06:30 Large Platelets 1+ 11/07/21 06:30 Giant Platelets Not Reportable 11/07/21 06:30 Platelet Satelliting Not Reportable 11/07/21 06:30 Plt Morphology Comment Not Reportable 11/07/21 06:30 RBC Morphology Not Reportable 11/07/21 06:30 Dimorphic RBCs Not Reportable 11/07/21 06:30 Polychromasia Not Reportable 11/07/21 06:30 Hypochromasia 1+ 11/07/21 06:30 Poikilocytosis Not Reportable 11/07/21 06:30 Anisocytosis Not Reportable 11/07/21 06:30 Microcytosis Not Reportable 11/07/21 06:30 Macrocytosis Not Reportable 11/07/21 06:30 Spherocytes 1+ 11/07/21 06:30 Pappenheimer Bodies Not Reportable 11/07/21 06:30 Sickle Cells Not Reportable 11/07/21 06:30 Target Cells 1+ 11/07/21 06:30 Tear Drop Cells Not Reportable 11/07/21 06:30 Ovalocytes Not Reportable 11/07/21 06:30 Helmet Cells Not Reportable 11/07/21 06:30 Maradiaga-Gonzales Bodies Not Reportable 11/07/21 06:30 [place] Rings Not Reportable 11/07/21 06:30 [place] Cells Not Reportable 11/07/21 06:30 Bite Cells Not Reportable 11/07/21 06:30 Crenated Cell Not Reportable 11/07/21 06:30 Elliptocytes Not Reportable 11/07/21 06:30 Acanthocytes (Spur) Not Reportable 11/07/21 06:30 Rouleaux Not Reportable 11/07/21 06:30 Hemoglobin C Crystals Not Reportable 11/07/21 06:30 Schistocytes Not Reportable 11/07/21 06:30 Malaria parasites Not Reportable 11/07/21 06:30 Magdy Bodies Not Reportable 11/07/21 06:30 Hem Pathologist Commnt No 11/07/21 06:30 PT 17.2 Sec. (12.2-14.9) H 10/30/21 16:30 INR 1.27 (0.87-1.13) H 10/30/21 16:30 APTT 44.4 Sec. (24.2-36.6) H 10/30/21 16:30 D-Dimer > 15508 ng/mlDDU (0-234) H 10/30/21 Unknown Heparin Anti-Xa Level 0.62 U.I./ml (0.3-0.7) 11/12/21 03:30 ABG pH 7.475 pH Units (7.350-7.450) H 11/11/21 13:53 ABG pCO2 45.0 mm Hg 11/11/21 13:53 ABG pO2 64.1 mm Hg (80.0-90.0) L 11/11/21 13:53 ABG HCO3 32.4 mmol/L (20.0-26.0) H 11/11/21 13:53 ABG O2 Saturation 96.3 % (95.0-99.0) 11/11/21 13:53 ABG O2 Content 10.1 (0.0-44) 11/11/21 13:53 ABG Base Excess 8.0 mmol/L (-2.0-3.0) H 11/11/21 13:53 ABG Hemoglobin 7.6 gm/dl (12.0-16.0) L 11/11/21 13:53 ABG Carboxyhemoglobin 1.8 % (0.0-5.0) 11/11/21 13:53 ABG Methemoglobin 0.5 % (0.0-1.5) 11/11/21 13:53 Oxyhemoglobin 94.0 % (95.0-99.0) L 11/11/21 13:53 FiO2 32 % 11/11/21 13:53 Sodium 151 mmol/L (137-145) H 11/15/21 04:36 Potassium 3.7 mmol/L (3.6-5.0) 11/15/21 04:36 Chloride 111.2 mmol/L (98-107) H 11/15/21 04:36 Carbon Dioxide 28 mmol/L (22-30) 11/15/21 04:36 Anion Gap 16 mmol/L 11/15/21 04:36 BUN 36 mg/dL (7-17) H 11/15/21 04:36 Creatinine 1.3 mg/dL (0.6-1.2) H 11/15/21 04:36 Estimated GFR 49 ml/min 11/15/21 04:36 BUN/Creatinine Ratio 28 % 11/15/21 04:36 Glucose 136 mg/dL (65-100) H 11/15/21 04:36 POC Glucose 118 mg/dL (70-105) H 11/14/21 23:11 Hemoglobin A1c 6.7 % (4-6) H 10/31/21 04:30 Lactic Acid 0.70 mmol/L (0.7-2.0) 10/31/21 15:45 Calcium 8.1 mg/dL (8.4-10.2) L 11/15/21 04:36 Phosphorus 3.20 mg/dL (2.5-4.5) D 11/14/21 04:55 Magnesium 2.20 mg/dL (1.7-2.3) 11/14/21 04:55 Ferritin 208.4 ng/mL (10.0-200.0) H 10/30/21 Unknown Total Bilirubin < 0.20 mg/dL (0.1-1.2) 11/06/21 02:35 AST 21 units/L (5-40) 11/06/21 02:35 ALT 77 units/L (7-56) H 11/06/21 02:35 Alkaline Phosphatase 84 units/L (35-129) 11/06/21 02:35 Ammonia 31.0 umol/L (25-60) 10/29/21 15:10 Lactate Dehydrogenase 469 units/L (91-180) H 10/30/21 Unknown Troponin T 1.150 ng/mL (0.00-0.029) H* D 10/29/21 22:34 C-Reactive Protein 13.40 mg/dL (0.00-1.30) H 10/30/21 Unknown Total Protein 6.3 g/dL (6.3-8.2) 11/06/21 02:35 Albumin 3.0 g/dL (3.9-5) L 11/06/21 02:35 Albumin/Globulin Ratio 0.9 % 11/06/21 02:35 Triglycerides 68 mg/dL (2-149) 10/29/21 19:40 Cholesterol 98 mg/dL (50-199) 10/29/21 19:40 LDL Cholesterol Direct 43 mg/dL (50-130) L 10/29/21 19:40 HDL Cholesterol 50 mg/dL (40-59) 10/29/21 19:40 Cholesterol/HDL Ratio 1.96 % 10/29/21 19:40 Procalcitonin 61.95 ng/mL (<0.15) 10/30/21 Unknown TSH 3.080 mlU/mL (0.270-4.200) 10/29/21 15:10 Urine Color Yellow (Yellow) 11/13/21 08:30 Urine Turbidity Slightly-cloudy (Clear) 11/13/21 08:30 Urine pH 6.0 (5.0-7.0) 11/13/21 08:30 Ur Specific [place] 1.010 (1.003-1.030) 11/13/21 08:30 Urine Protein <15 mg/dl mg/dL (Negative) 11/13/21 08:30 Urine Glucose (UA) Neg mg/dL (Negative) 11/13/21 08:30 Urine Ketones Tr mg/dL (Negative) 11/13/21 08:30 Urine Blood Sm (Negative) 11/13/21 08:30 Urine Nitrite Neg (Negative) 11/13/21 08:30 Urine Bilirubin Neg (Negative) 11/13/21 08:30 Urine Urobilinogen < 2.0 mg/dL (<2.0) 11/13/21 08:30 Ur Leukocyte Esterase Neg (Negative) 11/13/21 08:30 Urine WBC (Auto) < 1.0 /HPF (0.0-6.0) 11/13/21 08:30 Urine RBC (Auto) < 1.0 /HPF (0.0-6.0) 11/13/21 08:30 U Epithel Cells (Auto) < 1.0 /HPF (0-13.0) 11/13/21 08:30 Urine Mucus Few /HPF 10/29/21 18:15 Urine Eosinophils None seen (None Seen) 11/04/21 Unknown Urine Creatinine 190.9 mg/dL (0.1-20.0) H 11/04/21 Unknown Protein/Creatinin Ratio 0.90 11/04/21 Unknown Urine Sodium 10 mmol/L 11/04/21 Unknown Urine Total Protein 172 mg/dL (5-11.8) H 11/04/21 Unknown Salicylates < 0.3 mg/dL (2.8-20.0) L 10/29/21 15:10 Urine Opiates Screen Negative 10/29/21 18:15 Urine Methadone Screen Negative 10/29/21 18:15 Acetaminophen 5.0 ug/mL (10.0-30.0) L 10/29/21 15:10 Ur Barbiturates Screen Negative 10/29/21 18:15 Ur Phencyclidine Scrn Negative 10/29/21 18:15 Ur Amphetamines Screen Negative 10/29/21 18:15 U Benzodiazepines Scrn Negative 10/29/21 18:15 Urine Cocaine Screen Negative 10/29/21 18:15 U Marijuana (THC) Screen Negative 10/29/21 18:15 Drugs of Abuse Note Disclamer 10/29/21 18:15 Plasma/Serum Alcohol < 0.01 % (0-0.07) 10/29/21 15:10 Coronavirus (PCR) Negative (Negative) 10/30/21 Unknown Blood Type O POSITIVE 11/12/21 04:15 Antibody Screen Negative 11/12/21 04:15 Crossmatch See Detail 11/12/21 04:15 Microbiology: Microbiology 11/13/21 08:38 Peripheral/Venous Blood Culture - Preliminary NO GROWTH AFTER 24 HOURS 11/13/21 08:38 Peripheral/Venous Blood Culture - Preliminary NO GROWTH AFTER 24 HOURS Krishna/IV: Voiding Method Indwelling Catheter Active Medications - Current Medications Current Medications: Generic Name Dose Route Start Last Admin Trade Name Freq PRN Reason Stop Dose Admin Acetaminophen 650 mg 10/29/21 17:04 11/12/21 22:53 Acetaminophen 650 Mg Rect Supp RI 650 mg Q6H PRN Administration Pain MILD(1-3)/Fever >100.5/NIEVES Alprazolam 0.25 mg 11/14/21 14:29 11/15/21 01:01 Alprazolam 0.25 Mg Tab PO 0.25 mg Q8H PRN Administration Anxiety Amiodarone HCl 200 mg 11/14/21 11:00 11/14/21 11:31 Amiodarone 200 Mg Tab PO 200 mg DAILY RAMON Administration Lipase/Protease/Amylase 1 each 10/31/21 08:56 Lipase 10,500/Protease 25,000/Amylase 43,750 (Units) Dr Ivory FEEDTUBE PRN PRN For Clogged Feeding Tube Dextrose 0 ml 11/04/21 13:48 11/12/21 05:45 Dextrose 10% *Hypoglycemia IV 50 ml PRN PRN Administration Hypoglycemia Famotidine 10 mg 11/06/21 10:00 11/14/21 21:41 Famotidine 10 Mg Tab PO 10 mg BID RAMON Administration Hydrophilic Ointment 1 applic 10/29/21 14:29 11/09/21 08:51 Lip Therapy Vaseline TP 1 applic Q2HR PRN Administration Dry Lips Dexmedetomidine HCl 400 mcg/ 100 mls @ 5.335 mls/hr 11/11/21 21:00 11/14/21 10:16 Sodium Chloride IV 0.5 mcg/kg/hr TITRATE RAMON 13.338 mls/hr Administration Protocol 0.2 MCG/KG/HR Insulin Glargine 10 units 11/13/21 22:00 11/14/21 21:41 Insulin Glargine 100 Units/Ml SUB-Q 10 units QHS RAMON Administration Insulin Human Lispro 0 unit 10/30/21 16:00 11/15/21 00:58 Insulin Lispro 100 Unit/Ml SUB-Q Not Given Q6HR RAMON Protocol Metoprolol Tartrate 50 mg 11/07/21 12:00 11/15/21 06:23 Metoprolol Tartrate 50 Mg Tab FEEDTUBE 50 mg Q6H RAMON Administration Multi-Ingred Cream/Lotion/Oil/Oint 1 applic 10/29/21 14:29 11/06/21 09:25 Mineral Oil/Petrolatum, White Ophth Oint 3.5 Gm OU 1 applic Q4HR PRN Administration Dry Eye(s) Senna/Docusate Sodium 1 tab 10/29/21 15:00 11/14/21 21:42 Sennosides/Docusate Sodium 8.6/50 Mg Tab FEEDTUBE Not Given BID RAMON Simple Syrup 15 ml 10/31/21 08:56 Simple Syrup 15 Ml FEEDTUBE PRN PRN Hypoglycemia Simple Syrup 30 ml 10/31/21 08:56 Simple Syrup 15 Ml FEEDTUBE PRN PRN Hypoglycemia Sodium Bicarbonate 325 mg 10/31/21 08:56 Sodium Bicarbonate 325 Mg Tab FEEDTUBE PRN PRN For Clogged Feeding Tube Sodium Chloride 10 ml 10/29/21 22:00 11/14/21 21:42 Sodium Chloride 0.9% 10 Ml Flush Syringe IV 10 ml BID RAMON Administration Sodium Chloride 10 ml 10/29/21 17:04 Sodium Chloride 0.9% 10 Ml Flush Syringe IV PRN PRN LINE FLUSH Spironolactone 25 mg 11/10/21 10:00 11/14/21 10:19 Spironolactone 25 Mg Tab PO 25 mg QDAY RAMON Administration Nutrition/Malnutrition Assess - Dietary Evaluation Nutrition/Malnutrition Findings: Nutrition Notes Start: 10/30/21 09:50 Freq: Status: Active Protocol: Document 11/08/21 09:54 MEENU (Rec: 11/08/21 10:20 MEENU [id number]) Nutrition Notes Initial or Follow up Reassessment Current Diagnosis Acute Kidney Injury,Sepsis, Heart Failure,Respiratory Failure Other Pertinent Diagnosis SIERRA/ATN, s/p Cardiac Arrest, DVT, Anemia, Hyperkalemia. Current Diet TF-Nepro w/CARBSTEADY @ 37 ml/ hr (since D 11/06). Labs/Tests 11/08: Na 151, K 3.1, Cl 107.3 , CO2 31, BUN 82, Crea 1.8, Glu 232, Ca 8.1. Pertinent Medications 11/08: Insulin, others nutritionally unremarkable. Height 5 ft 10 in Weight 106.7 kg [place] Body Weight (kg) 68.18 BMI 33.7 Weight change and time frame No body weight change reported in 1 week. Weight Status Obese Subjective/Other Information RD consult for routine F/U on TF tolerance. TF continues as prescribed and well tolerated, according to RN over the phone. Pt continues on Mechanical ventilation. Percent of energy/protein needs met: Prescribed Nepro w/CARBSTEADY @ 37 ml/hr provides for energy /protein needs (1,598 Kcal/72 g) during LOS, 100% Kcal; 100% AA. Burn Absent Trauma Absent GI Symptoms None Food Allergy No Skin Integrity/Comment Clear, warm, dry. Current % PO Other Minimum of two criteria No #1 Nutrition Diagnosis Inadequate oral intake Diagnosis Progress(for reassessment Continues documentation) Is patient on ventilator? Yes Is Patient Ambulatory and/or Out of Bed No REE-([facility]-confined to bed) 2022.848 Kcal/Kg value to use for calculation 15 Approximate Energy Requirements Using 1601 kcal/Kg Calculation Used for Recommendations Kcal/kg Additional Notes Protein: 0.8-1.2 g/Kg IBW; 70- 105 g/day. Fluids: 1 ml/Kcal, or as per MD. Nutrition Intervention Nutrition Support: Continue Nepro w/CARBSTEADY @ 37 ml/hr. Flush: 160 ml water Q 4 hr, or as per MD. Kcal 1,598 Protein (gm) 72 Carbohydrates (gm) 143 Fat (gm) 85 Fluid (mL) 646 Fiber (gm) 11 % RDI: 100% Kcal; 100% AA. Goal #1 Provide at least 75% of energy /protein needs through Enteral Feeding during LOS. Goal #2 Maintain body weight within +/ -3% of admission body weight during LOS. Follow-Up By: 11/15/21 Additional Comments Continue monitoring TF tolerance and BM.
--- NOTE | 2021-11-15 09:26 | Progress Note ---
Assessment and Plan Acute Renal Failure secondary to Ischemic ATN secondary to Sepsis, Cardiac arrest and Hypotension S/P Cardiac Arrest Acute Hypoxemic Respiratory Failure Acute DVT Sepsis CHF Anemia Hyperkalemia Plan: Cr is trending down, good UOP ARF likely secondary to Ischemic ATN No IVF as LVEF 25-30 % On Spironolactone 25 mg po daily DVT-S/P Heparin drip Sinus Tachycardia-S/P Amiodarone drip Hypernatremia- Increase Free water flush with 350 ml every 4 hours via tube feeds Anemia-transfuse as needed Obtain daily weights Strict I/O's daily Renally dose medications Avoid nephrotoxic agents Continue to monitor renal function Subjective Date of service: 11/15/21 Principal diagnosis: AHRF; Cardiac arrest; R. pneumothorax; pneumonia; AMS; DVT's; SIERRA; Obesity Interval history: remains in IMCU Objective - Vital Signs Vital signs: Vital Signs - 12hr 11/14/21 11/14/21 11/14/21 21:31 21:45 21:46 Temperature Pulse Rate 88 Pulse Rate [ From Monitor] Respiratory 22 19 19 Rate Blood Pressure 172/96 O2 Sat by Pulse 98 Oximetry 11/14/21 11/14/21 11/14/21 22:00 22:31 23:00 Temperature Pulse Rate 87 91 H 91 H Pulse Rate [ 87 From Monitor] Respiratory 12 45 H 33 H Rate Blood Pressure 181/93 181/93 179/88 O2 Sat by Pulse 98 96 96 Oximetry 11/14/21 11/14/21 11/15/21 23:30 23:31 00:00 Temperature 100.6 F H Pulse Rate 92 H 93 H 87 Pulse Rate [ From Monitor] Respiratory 23 37 H 23 Rate Blood Pressure 179/88 179/88 168/84 O2 Sat by Pulse 98 97 99 Oximetry 11/15/21 11/15/21 11/15/21 00:30 00:31 00:58 Temperature Pulse Rate 87 88 89 Pulse Rate [ From Monitor] Respiratory 24 Rate Blood Pressure 168/84 168/84 O2 Sat by Pulse 100 Oximetry 11/15/21 11/15/21 11/15/21 01:00 01:31 02:00 Temperature Pulse Rate 87 79 77 Pulse Rate [ From Monitor] Respiratory 28 H 15 15 Rate Blood Pressure 163/86 163/86 154/84 O2 Sat by Pulse 100 100 100 Oximetry 11/15/21 11/15/2111/15/22 02:31 03:00 03:31 Temperature Pulse Rate 78 79 82 Pulse Rate [ From Monitor] Respiratory 19 34 H 23 Rate Blood Pressure 154/84 148/78 148/78 O2 Sat by Pulse 99 99 100 Oximetry 11/15/21 11/15/21 11/15/21 04:00 04:25 04:31 Temperature 100.2 F H Pulse Rate 83 80 81 Pulse Rate [ From Monitor] Respiratory 28 H 25 H Rate Blood Pressure 138/72 138/72 O2 Sat by Pulse 99 99 Oximetry 11/15/21 11/15/21 11/15/21 05:00 05:31 06:00 Temperature Pulse Rate 82 81 83 Pulse Rate [ From Monitor] Respiratory 19 18 24 Rate Blood Pressure 148/68 148/68 160/81 O2 Sat by Pulse 99 100 100 Oximetry 11/15/21 11/15/21 11/15/21 06:23 06:24 06:31 Temperature Pulse Rate 82 83 Pulse Rate [ From Monitor] Respiratory 17 16 Rate Blood Pressure 160/81 160/81 O2 Sat by Pulse 100 Oximetry 11/15/21 11/15/21 11/15/21 07:00 07:31 08:00 Temperature 99.6 F Pulse Rate 79 107 H 106 H Pulse Rate [ From Monitor] Respiratory 15 26 H 23 Rate Blood Pressure 130/70 130/70 131/80 O2 Sat by Pulse 98 100 100 Oximetry 11/15/21 08:50 Temperature Pulse Rate 107 H Pulse Rate [ From Monitor] Respiratory 23 Rate Blood Pressure O2 Sat by Pulse 98 Oximetry - Lab 11/14/21 04:55 11/15/21 04:36 Most recent lab results ABG pH 7.475 pH Units (7.350-7.450) H 11/11/21 13:53 ABG pCO2 45.0 mm Hg 11/11/21 13:53 ABG pO2 64.1 mm Hg (80.0-90.0) L 11/11/21 13:53 ABG HCO3 32.4 mmol/L (20.0-26.0) H 11/11/21 13:53 ABG O2 Saturation 96.3 % (95.0-99.0) 11/11/21 13:53 Calcium 8.1 mg/dL (8.4-10.2) L 11/15/21 04:36 Phosphorus 3.20 mg/dL (2.5-4.5) D 11/14/21 04:55 Magnesium 2.20 mg/dL (1.7-2.3) 11/14/21 04:55 Urine Creatinine 190.9 mg/dL (0.1-20.0) H 11/04/21 Unknown Urine Sodium 10 mmol/L 11/04/21 Unknown Urine Total Protein 172 mg/dL (5-11.8) H 11/04/21 Unknown Medications & Allergies - Medications Allergies/Adverse Reactions: Allergies No Known Allergies Allergy (Verified 10/29/21 14:01) Home Medications: Home Medications Medication Instructions Recorded Confirmed Last Taken Type Unobtainable 11/10/21 11/10/21 Unknown History Active Medications: Generic Name Dose Route Start Last Admin Trade Name Freq PRN Reason Stop Dose Admin Acetaminophen 650 mg 10/29/21 17:04 11/12/21 22:53 Acetaminophen 650 Mg Rect Supp [place] 650 mg Q6H PRN Administration Pain MILD(1-3)/Fever >100.5/NIEVES Alprazolam 0.25 mg 11/14/21 14:29 11/15/21 01:01 Alprazolam 0.25 Mg Tab PO 0.25 mg Q8H PRN Administration Anxiety Amiodarone HCl 200 mg 11/14/21 11:00 11/14/21 11:31 Amiodarone 200 Mg Tab PO 200 mg DAILY RAMON Administration Lipase/Protease/Amylase 1 each 10/31/21 08:56 Lipase 10,500/Protease 25,000/Amylase 43,750 (Units) Dr Ivory FEEDTUBE PRN PRN For Clogged Feeding Tube Dextrose 0 ml 11/04/21 13:48 11/12/21 05:45 Dextrose 10% *Hypoglycemia IV 50 ml PRN PRN Administration Hypoglycemia Famotidine 10 mg 11/06/21 10:00 11/14/21 21:41 Famotidine 10 Mg Tab PO 10 mg BID RAMON Administration Hydrophilic Ointment 1 applic 10/29/21 14:29 11/09/21 08:51 Lip Therapy Vaseline TP 1 applic Q2HR PRN Administration Dry Lips Insulin Glargine 10 units 11/13/21 22:00 11/14/21 21:41 Insulin Glargine 100 Units/Ml SUB-Q 10 units QHS RAMON Administration Insulin Human Lispro 0 unit 10/30/21 16:00 11/15/21 05:00 Insulin Lispro 100 Unit/Ml SUB-Q Not Given Q6HR [facility] Protocol Metoprolol Tartrate 50 mg 11/07/21 12:00 11/15/21 06:23 Metoprolol Tartrate 50 Mg Tab FEEDTUBE 50 mg Q6H RAMON Administration Multi-Ingred Cream/Lotion/Oil/Oint 1 applic 10/29/21 14:29 11/06/21 09:25 Mineral Oil/Petrolatum, White Ophth Oint 3.5 Gm OU 1 applic Q4HR PRN Administration Dry Eye(s) Senna/Docusate Sodium 1 tab 10/29/21 15:00 11/14/21 21:42 Sennosides/Docusate Sodium 8.6/50 Mg Tab FEEDTUBE Not Given BID RAMON Simple Syrup 15 ml 10/31/21 08:56 Simple Syrup 15 Ml FEEDTUBE PRN PRN Hypoglycemia Simple Syrup 30 ml 10/31/21 08:56 Simple Syrup 15 Ml FEEDTUBE PRN PRN Hypoglycemia Sodium Bicarbonate 325 mg 10/31/21 08:56 Sodium Bicarbonate 325 Mg Tab FEEDTUBE PRN PRN For Clogged Feeding Tube Sodium Chloride 10 ml 10/29/21 22:00 11/14/21 21:42 Sodium Chloride 0.9% 10 Ml Flush Syringe IV 10 ml BID RAMON Administration Sodium Chloride 10 ml 10/29/21 17:04 Sodium Chloride 0.9% 10 Ml Flush Syringe IV PRN PRN LINE FLUSH Spironolactone 25 mg 11/10/21 10:00 11/14/21 10:19 Spironolactone 25 Mg Tab PO 25 mg QDAY RAMON Administration
--- NOTE | 2021-11-15 10:00 | Progress Note ---
Assessment and Plan Acute hypoxemic respiratory failure on MVS Cardiac arrest with ROSC Acute DVT Right pneumothorax Shock (septic +/- cardiogenic) Possible aspiration pneumonia SIERRA Altered mental status/acute encephalopathy Elevated serum transaminases, likely shock liver Metabolic acidosis Obesity Retro-peritoneal Hematoma Leukocytosis Hypokalemia Lactic acidosis - prn CXR's & ABG's at this time - continue BIPAP scheduled qhs with prn daytime use - continue care as below otherwise; - continue to wean supplemental oxygen for target O2 sat's > 90% acutely - aspiration precautions - continue bronchodilators with pulmonary hygiene per RT - continue accuchecks with glycemic control per SSI for target blood glucose < 180 mg/dL - avoid nephrotoxins, renally dose all medications - continue to avoid benzodiazepine's, reduce the possibility of delirium - AB's per ID rec's - prn analgesia per pain score - Maintenance of sleep-wake cycle, avoid delirium - G.I. & VTE prophylaxis - PT/OT/ROM exercises - continue mobility protocols for pressure ulcer prophylaxis - Monitor hemodynamics closely - continue other care per attending / other consultants - discharge planning ongoing concurrently COVID SPECIFIC INTERVENTIONS - COVID-19 PCR negative .... Re-evaluate in am & prn Subjective Date of service: 11/15/21 Principal diagnosis: AHRF; Cardiac arrest; R. pneumothorax; pneumonia; AMS; DVT's; SIERRA; Obesity Interval history: Patient is seen today for: Acute hypoxemic respiratory failure; Cardiac arrest with ROSC; Right pneumothorax; pneumonia; AMS; bilateral DVT's; SIERRA; Obesity Seen and examined at bedside; 24hour events reviewed; nursing and respiratory care staff consulted; no adverse overnight events reported to me; resting peacefully in bed; tolerating qhs BIPAP; remains on supplemental oxygen; denies acute chest pain or palpitations; afebrile Objective Vital Signs - 12hr 11/14/21 11/14/21 11/14/21 22:31 23:00 23:30 Temperature Pulse Rate 91 H 91 H 92 H Respiratory 45 H 33 H 23 Rate Blood Pressure 181/93 179/88 179/88 O2 Sat by Pulse 96 96 98 Oximetry 11/14/21 11/15/21 11/15/21 23:31 00:00 00:30 Temperature 100.6 F H Pulse Rate 93 H 87 87 Respiratory 37 H 23 Rate Blood Pressure 179/88 168/84 O2 Sat by Pulse 97 99 Oximetry 11/15/21 11/15/21 11/15/21 00:31 00:58 01:00 Temperature Pulse Rate 88 89 87 Respiratory 24 28 H Rate Blood Pressure 168/84 168/84 163/86 O2 Sat by Pulse 100 100 Oximetry 11/15/21 11/15/21 11/15/21 01:31 02:00 02:31 Temperature Pulse Rate 79 77 78 Respiratory 15 15 19 Rate Blood Pressure 163/86 154/84 154/84 O2 Sat by Pulse 100 100 99 Oximetry 11/15/21 11/15/21 11/15/21 03:00 03:31 04:00 Temperature 100.2 F H Pulse Rate 79 82 83 Respiratory 34 H 23 28 H Rate Blood Pressure 148/78 148/78 138/72 O2 Sat by Pulse 99 100 99 Oximetry 11/15/21 11/15/21 11/15/21 04:25 04:31 05:00 Temperature Pulse Rate 80 81 82 Respiratory 25 H 19 Rate Blood Pressure 138/72 148/68 O2 Sat by Pulse 99 99 Oximetry 11/15/21 11/15/21 11/15/21 05:31 06:00 06:23 Temperature Pulse Rate 81 83 82 Respiratory 18 24 Rate Blood Pressure 148/68 160/81 160/81 O2 Sat by Pulse 100 100 Oximetry 11/15/21 11/15/21 11/15/21 06:24 06:31 07:00 Temperature Pulse Rate 83 79 Respiratory 17 16 15 Rate Blood Pressure 160/81 130/70 O2 Sat by Pulse 100 98 Oximetry 11/15/21 11/15/21 11/15/21 07:31 08:00 08:50 Temperature 99.6 F Pulse Rate 107 H 106 H 107 H Respiratory 26 H 23 23 Rate Blood Pressure 130/70 131/80 O2 Sat by Pulse 100 100 98 Oximetry Constitutional: appears uncomfortable, other (elderly obese female with mildly increased respiratory effort at rest on BIPAP) Eyes: non-icteric, other (+ mild periorbital phymosis) ENT: oropharynx moist Neck: supple, no lymphadenopathy, no JVD, other (large circumference) Effort: mildly labored Ascultation: Bilateral: diminished breath sounds, rhonchi Percussion: Bilateral: not dull Cardiovascular: irregular rhythm, other (no R/M) Gastrointestinal: normoactive bowel sounds, soft, non-tender, other (obese) Integumentary: normal, other (Left flank ecchymosis with induration) Extremities: no cyanosis, pulses normal, no ischemia or petechiae, edema (2+) Neurologic: normal mental status, non-focal exam (grossly), pupils equal and round, motor strength normal and (weak) Psychiatric: mood appropriate, affect normal CBC and BMP: 11/16/21 05:11 11/16/21 05:11 ABG, PT/INR, D-dimer: ABG ABG pH 7.475 pH Units (7.350-7.450) H 11/11/21 13:53 ABG pCO2 45.0 mm Hg 11/11/21 13:53 ABG pO2 64.1 mm Hg (80.0-90.0) L 11/11/21 13:53 ABG O2 Saturation 96.3 % (95.0-99.0) 11/11/21 13:53 PT/INR, D-dimer PT 17.2 Sec. (12.2-14.9) H 10/30/21 16:30 INR 1.27 (0.87-1.13) H 10/30/21 16:30 D-Dimer > 36572 ng/mlDDU (0-234) H 10/30/21 Unknown Abnormal lab findings: Abnormal Labs 10/29/21 10/29/21 10/29/21 15:10 15:10 15:10 WBC 27.8 H RBC Hgb Hct MCH 27 L RDW Plt Count Lymph % (Auto) Lymph # (Auto) [place] # (Auto) Seg Neutrophils % Seg Neuts % (Manual) 78.0 H Lymphocytes % (Manual) 10.0 L Nucleated RBC % Seg Neutrophils # Seg Neutrophils # Man 21.7 H Monocytes # (Manual) 1.4 H PT INR APTT D-Dimer Heparin Anti-Xa Level ABG pH ABG pO2 ABG HCO3 ABG O2 Saturation ABG Base Excess ABG Hemoglobin Oxyhemoglobin Sodium Potassium Chloride Carbon Dioxide BUN Creatinine Glucose POC Glucose Hemoglobin A1c Lactic Acid 6.80 H* Calcium Phosphorus Magnesium Ferritin AST ALT Alkaline Phosphatase Lactate Dehydrogenase Troponin T 0.089 H C-Reactive Protein Total Protein Albumin LDL Cholesterol Direct Urine Creatinine Urine Total Protein Salicylates Acetaminophen Crossmatch 10/29/21 10/29/21 10/29/21 15:10 15:10 15:10 WBC RBC Hgb Hct MCH RDW Plt Count Lymph % (Auto) Lymph # (Auto) [place] # (Auto) Seg Neutrophils % Seg Neuts % (Manual) Lymphocytes % (Manual) Nucleated RBC % Seg Neutrophils # Seg Neutrophils # Man Monocytes # (Manual) PT INR APTT D-Dimer Heparin Anti-Xa Level ABG pH ABG pO2 ABG HCO3 ABG O2 Saturation ABG Base Excess ABG Hemoglobin Oxyhemoglobin Sodium 136 L Potassium 2.8 L* Chloride 93.4 L Carbon Dioxide 20 L BUN Creatinine Glucose 330 H POC Glucose Hemoglobin A1c Lactic Acid Calcium Phosphorus Magnesium Ferritin AST 1013 H ALT 1289 H Alkaline Phosphatase 246 H Lactate Dehydrogenase Troponin T C-Reactive Protein Total Protein Albumin LDL Cholesterol Direct Urine Creatinine Urine Total Protein Salicylates < 0.3 L Acetaminophen 5.0 L Crossmatch 10/29/21 10/29/21 10/29/21 15:11 16:01 19:29 WBC RBC Hgb Hct MCH RDW Plt Count Lymph % (Auto) Lymph # (Auto) [place] # (Auto) Seg Neutrophils % Seg Neuts % (Manual) Lymphocytes % (Manual) Nucleated RBC % Seg Neutrophils # Seg Neutrophils # Man Monocytes # (Manual) PT INR APTT D-Dimer Heparin Anti-Xa Level ABG pH 7.307 L ABG pO2 64.1 L ABG HCO3 ABG O2 Saturation 90.8 L ABG Base Excess -2.9 L ABG Hemoglobin Oxyhemoglobin 89.3 L Sodium Potassium Chloride Carbon Dioxide BUN Creatinine Glucose POC Glucose Hemoglobin A1c Lactic Acid 2.60 H* Calcium Phosphorus Magnesium 2.90 H Ferritin AST ALT Alkaline Phosphatase Lactate Dehydrogenase Troponin T C-Reactive Protein Total Protein Albumin LDL Cholesterol Direct Urine Creatinine Urine Total Protein Salicylates Acetaminophen Crossmatch 10/29/21 10/29/21 10/30/21 19:40 22:34 04:30 WBC 16.2 H RBC Hgb Hct MCH 26 L RDW 15.5 H Plt Count Lymph % (Auto) 6.2 L Lymph # (Auto) 1.0 L [place] # (Auto) 0.9 H Seg Neutrophils % 88.1 H Seg Neuts % (Manual) Lymphocytes % (Manual) Nucleated RBC % Seg Neutrophils # 14.2 H Seg Neutrophils # Man Monocytes # (Manual) PT INR APTT D-Dimer Heparin Anti-Xa Level ABG pH ABG pO2 ABG HCO3 ABG O2 Saturation ABG Base Excess ABG Hemoglobin Oxyhemoglobin Sodium Potassium Chloride Carbon Dioxide BUN Creatinine Glucose POC Glucose Hemoglobin A1c Lactic Acid Calcium Phosphorus Magnesium Ferritin AST ALT Alkaline Phosphatase Lactate Dehydrogenase Troponin T 1.950 H* D 1.150 H* D C-Reactive Protein Total Protein Albumin LDL Cholesterol Direct 43 L Urine Creatinine Urine Total Protein Salicylates Acetaminophen Crossmatch 10/30/21 10/30/21 10/30/21 04:30 04:35 05:45 WBC RBC Hgb Hct MCH RDW Plt Count Lymph % (Auto) Lymph # (Auto) [place] # (Auto) Seg Neutrophils % Seg Neuts % (Manual) Lymphocytes % (Manual) Nucleated RBC % Seg Neutrophils # Seg Neutrophils # Man Monocytes # (Manual) PT INR APTT D-Dimer Heparin Anti-Xa Level ABG pH ABG pO2 69.5 L ABG HCO3 ABG O2 Saturation ABG Base Excess -2.7 L ABG Hemoglobin Oxyhemoglobin 94.7 L Sodium Potassium Chloride Carbon Dioxide 21 L BUN Creatinine Glucose 159 H POC Glucose 151 H Hemoglobin A1c Lactic Acid Calcium 7.9 L D Phosphorus Magnesium Ferritin AST 461 H ALT 686 H Alkaline Phosphatase 130 H Lactate Dehydrogenase Troponin T C-Reactive Protein Total Protein 5.6 L D Albumin 3.2 L LDL Cholesterol Direct Urine Creatinine Urine Total Protein Salicylates Acetaminophen Crossmatch 10/30/21 10/30/21 10/30/21 11:24 15:59 16:30 WBC RBC Hgb Hct MCH RDW Plt Count Lymph % (Auto) Lymph # (Auto) [place] # (Auto) Seg Neutrophils % Seg Neuts % (Manual) Lymphocytes % (Manual) Nucleated RBC % Seg Neutrophils # Seg Neutrophils # Man Monocytes # (Manual) PT 17.2 H INR 1.27 H APTT 44.4 H D-Dimer Heparin Anti-Xa Level ABG pH ABG pO2 ABG HCO3 ABG O2 Saturation ABG Base Excess ABG Hemoglobin Oxyhemoglobin Sodium Potassium Chloride Carbon Dioxide BUN Creatinine Glucose POC Glucose 153 H 109 H Hemoglobin A1c Lactic Acid Calcium Phosphorus Magnesium Ferritin AST ALT Alkaline Phosphatase Lactate Dehydrogenase Troponin T C-Reactive Protein Total Protein Albumin LDL Cholesterol Direct Urine Creatinine Urine Total Protein Salicylates Acetaminophen Crossmatch 10/30/21 10/30/21 10/30/21 23:00 Unknown Unknown WBC RBC Hgb Hct MCH RDW Plt Count Lymph % (Auto) Lymph # (Auto) [place] # (Auto) Seg Neutrophils % Seg Neuts % (Manual) Lymphocytes % (Manual) Nucleated RBC % Seg Neutrophils # Seg Neutrophils # Man Monocytes # (Manual) PT INR APTT D-Dimer > 72769 H Heparin Anti-Xa Level 0.82 H ABG pH ABG pO2 ABG HCO3 ABG O2 Saturation ABG Base Excess ABG Hemoglobin Oxyhemoglobin Sodium Potassium Chloride Carbon Dioxide BUN Creatinine Glucose POC Glucose Hemoglobin A1c Lactic Acid Calcium Phosphorus Magnesium Ferritin 208.4 H AST ALT Alkaline Phosphatase Lactate Dehydrogenase Troponin T C-Reactive Protein Total Protein Albumin LDL Cholesterol Direct Urine Creatinine Urine Total Protein Salicylates Acetaminophen Crossmatch 10/30/21 10/31/21 10/31/21 Unknown 04:30 04:30 WBC 14.4 H RBC Hgb Hct MCH 26 L RDW Plt Count Lymph % (Auto) Lymph # (Auto) [place] # (Auto) Seg Neutrophils % Seg Neuts % (Manual) Lymphocytes % (Manual) Nucleated RBC % Seg Neutrophils # Seg Neutrophils # Man Monocytes # (Manual) PT INR APTT D-Dimer Heparin Anti-Xa Level ABG pH ABG pO2 ABG HCO3 ABG O2 Saturation ABG Base Excess ABG Hemoglobin Oxyhemoglobin Sodium Potassium 3.5 L Chloride 107.5 H Carbon Dioxide 20 L BUN 28 H Creatinine 1.7 H Glucose 113 H POC Glucose Hemoglobin A1c Lactic Acid Calcium 7.9 L Phosphorus Magnesium Ferritin AST ALT Alkaline Phosphatase Lactate Dehydrogenase 469 H Troponin T C-Reactive Protein 13.40 H Total Protein Albumin LDL Cholesterol Direct Urine Creatinine Urine Total Protein Salicylates Acetaminophen Crossmatch 10/31/21 10/31/21 10/31/21 04:30 05:11 15:30 WBC RBC Hgb Hct MCH RDW Plt Count Lymph % (Auto) Lymph # (Auto) [place] # (Auto) Seg Neutrophils % Seg Neuts % (Manual) Lymphocytes % (Manual) Nucleated RBC % Seg Neutrophils # Seg Neutrophils # Man Monocytes # (Manual) PT INR APTT D-Dimer Heparin Anti-Xa Level ABG pH 7.222 L ABG pO2 61.5 L ABG HCO3 ABG O2 Saturation 86.2 L ABG Base Excess -6.3 L ABG Hemoglobin 11.2 L Oxyhemoglobin 84.5 L Sodium Potassium Chloride Carbon Dioxide BUN Creatinine Glucose POC Glucose 106 H Hemoglobin A1c 6.7 H Lactic Acid Calcium Phosphorus Magnesium Ferritin AST ALT Alkaline Phosphatase Lactate Dehydrogenase Troponin T C-Reactive Protein Total Protein Albumin LDL Cholesterol Direct Urine Creatinine Urine Total Protein Salicylates Acetaminophen Crossmatch 10/31/21 10/31/21 10/31/21 16:07 16:35 17:45 WBC RBC Hgb Hct MCH RDW Plt Count Lymph % (Auto) Lymph # (Auto) [place] # (Auto) Seg Neutrophils % Seg Neuts % (Manual) Lymphocytes % (Manual) Nucleated RBC % Seg Neutrophils # Seg Neutrophils # Man Monocytes # (Manual) PT INR APTT D-Dimer Heparin Anti-Xa Level ABG pH 7.267 L ABG pO2 58.3 L ABG HCO3 ABG O2 Saturation 88.3 L ABG Base Excess -5.9 L ABG Hemoglobin 10.1 L Oxyhemoglobin 86.5 L Sodium Potassium Chloride Carbon Dioxide BUN Creatinine Glucose POC Glucose 115 H Hemoglobin A1c Lactic Acid Calcium Phosphorus Magnesium Ferritin AST ALT Alkaline Phosphatase Lactate Dehydrogenase Troponin T C-Reactive Protein Total Protein Albumin LDL Cholesterol Direct Urine Creatinine 383.6 H Urine Total Protein Salicylates Acetaminophen Crossmatch 11/01/21 11/01/21 11/01/21 00:06 05:08 06:00 WBC 12.6 H RBC 3.43 L Hgb 8.9 L Hct 28.7 L MCH 26 L RDW 15.7 H Plt Count 130 L Lymph % (Auto) Lymph # (Auto) [place] # (Auto) Seg Neutrophils % Seg Neuts % (Manual) Lymphocytes % (Manual) Nucleated RBC % Seg Neutrophils # Seg Neutrophils # Man Monocytes # (Manual) PT INR APTT D-Dimer Heparin Anti-Xa Level ABG pH ABG pO2 ABG HCO3 ABG O2 Saturation ABG Base Excess ABG Hemoglobin Oxyhemoglobin Sodium Potassium Chloride Carbon Dioxide BUN Creatinine Glucose POC Glucose 114 H 120 H Hemoglobin A1c Lactic Acid Calcium Phosphorus Magnesium Ferritin AST ALT Alkaline Phosphatase Lactate Dehydrogenase Troponin T C-Reactive Protein Total Protein Albumin LDL Cholesterol Direct Urine Creatinine Urine Total Protein Salicylates Acetaminophen Crossmatch 11/01/21 11/01/21 11/01/21 06:00 11:43 14:00 WBC RBC Hgb Hct MCH RDW Plt Count Lymph % (Auto) Lymph # (Auto) [place] # (Auto) Seg Neutrophils % Seg Neuts % (Manual) Lymphocytes % (Manual) Nucleated RBC % Seg Neutrophils # Seg Neutrophils # Man Monocytes # (Manual) PT INR APTT D-Dimer Heparin Anti-Xa Level ABG pH 7.349 L ABG pO2 75.6 L ABG HCO3 ABG O2 Saturation ABG Base Excess -3.9 L ABG Hemoglobin 9.8 L Oxyhemoglobin 93.5 L Sodium Potassium Chloride 114.1 H Carbon Dioxide 20 L BUN 33 H Creatinine Glucose 131 H POC Glucose 151 H Hemoglobin A1c Lactic Acid Calcium 7.7 L Phosphorus Magnesium Ferritin AST 79 H ALT 259 H Alkaline Phosphatase Lactate Dehydrogenase Troponin T C-Reactive Protein Total Protein 5.5 L Albumin 2.7 L LDL Cholesterol Direct Urine Creatinine Urine Total Protein Salicylates Acetaminophen Crossmatch 11/01/21 11/01/21 11/02/21 16:45 22:55 05:12 WBC RBC Hgb Hct MCH RDW Plt Count Lymph % (Auto) Lymph # (Auto) [place] # (Auto) Seg Neutrophils % Seg Neuts % (Manual) Lymphocytes % (Manual) Nucleated RBC % Seg Neutrophils # Seg Neutrophils # Man Monocytes # (Manual) PT INR APTT D-Dimer Heparin Anti-Xa Level ABG pH ABG pO2 ABG HCO3 ABG O2 Saturation ABG Base Excess ABG Hemoglobin Oxyhemoglobin Sodium Potassium Chloride Carbon Dioxide BUN Creatinine Glucose POC Glucose 119 H 129 H 140 H Hemoglobin A1c Lactic Acid Calcium Phosphorus Magnesium Ferritin AST ALT Alkaline Phosphatase Lactate Dehydrogenase Troponin T C-Reactive Protein Total Protein Albumin LDL Cholesterol Direct Urine Creatinine Urine Total Protein Salicylates Acetaminophen Crossmatch 11/02/21 11/02/21 11/02/21 05:35 05:35 09:35 WBC 13.5 H RBC 3.60 L Hgb 9.7 L Hct MCH 27 L RDW 15.7 H Plt Count Lymph % (Auto) Lymph # (Auto) [place] # (Auto) Seg Neutrophils % Seg Neuts % (Manual) Lymphocytes % (Manual) Nucleated RBC % Seg Neutrophils # Seg Neutrophils # Man Monocytes # (Manual) PT INR APTT D-Dimer Heparin Anti-Xa Level ABG pH 7.208 L ABG pO2 75.9 L ABG HCO3 ABG O2 Saturation 93.6 L ABG Base Excess -4.3 L ABG Hemoglobin 9.1 L Oxyhemoglobin 91.6 L Sodium Potassium 5.2 H D Chloride 112.6 H Carbon Dioxide BUN 32 H Creatinine Glucose 152 H POC Glucose Hemoglobin A1c Lactic Acid Calcium 8.2 L Phosphorus Magnesium 2.70 H Ferritin AST ALT Alkaline Phosphatase Lactate Dehydrogenase Troponin T C-Reactive Protein Total Protein Albumin LDL Cholesterol Direct Urine Creatinine Urine Total Protein Salicylates Acetaminophen Crossmatch 11/02/21 11/02/21 11/02/21 11:44 17:13 23:43 WBC RBC Hgb Hct MCH RDW Plt Count Lymph % (Auto) Lymph # (Auto) [place] # (Auto) Seg Neutrophils % Seg Neuts % (Manual) Lymphocytes % (Manual) Nucleated RBC % Seg Neutrophils # Seg Neutrophils # Man Monocytes # (Manual) PT INR APTT D-Dimer Heparin Anti-Xa Level ABG pH ABG pO2 ABG HCO3 ABG O2 Saturation ABG Base Excess ABG Hemoglobin Oxyhemoglobin Sodium Potassium Chloride Carbon Dioxide BUN Creatinine Glucose POC Glucose 173 H 148 H 137 H Hemoglobin A1c Lactic Acid Calcium Phosphorus Magnesium Ferritin AST ALT Alkaline Phosphatase Lactate Dehydrogenase Troponin T C-Reactive Protein Total Protein Albumin LDL Cholesterol Direct Urine Creatinine Urine Total Protein Salicylates Acetaminophen Crossmatch 11/03/21 11/03/21 11/03/21 04:59 06:00 06:00 WBC RBC 3.43 L Hgb 9.1 L Hct 29.0 L MCH 26 L RDW 16.4 H Plt Count Lymph % (Auto) Lymph # (Auto) [place] # (Auto) Seg Neutrophils % Seg Neuts % (Manual) Lymphocytes % (Manual) Nucleated RBC % Seg Neutrophils # Seg Neutrophils # Man Monocytes # (Manual) PT INR APTT D-Dimer Heparin Anti-Xa Level 0.17 L ABG pH ABG pO2 ABG HCO3 ABG O2 Saturation ABG Base Excess ABG Hemoglobin Oxyhemoglobin Sodium Potassium Chloride Carbon Dioxide BUN Creatinine Glucose POC Glucose 167 H Hemoglobin A1c Lactic Acid Calcium Phosphorus Magnesium Ferritin AST ALT Alkaline Phosphatase Lactate Dehydrogenase Troponin T C-Reactive Protein Total Protein Albumin LDL Cholesterol Direct Urine Creatinine Urine Total Protein Salicylates Acetaminophen Crossmatch 11/03/21 11/03/21 11/03/21 06:00 09:20 11:58 WBC RBC Hgb Hct MCH RDW Plt Count Lymph % (Auto) Lymph # (Auto) [place] # (Auto) Seg Neutrophils % Seg Neuts % (Manual) Lymphocytes % (Manual) Nucleated RBC % Seg Neutrophils # Seg Neutrophils # Man Monocytes # (Manual) PT INR APTT D-Dimer Heparin Anti-Xa Level ABG pH 7.274 L ABG pO2 75.6 L ABG HCO3 ABG O2 Saturation 94.9 L ABG Base Excess -2.5 L ABG Hemoglobin 9.3 L Oxyhemoglobin 92.9 L Sodium 149 H Potassium Chloride 117.5 H Carbon Dioxide BUN 32 H Creatinine Glucose 173 H POC Glucose 192 H Hemoglobin A1c Lactic Acid Calcium 8.1 L Phosphorus Magnesium Ferritin AST ALT Alkaline Phosphatase Lactate Dehydrogenase Troponin T C-Reactive Protein Total Protein Albumin LDL Cholesterol Direct Urine Creatinine Urine Total Protein Salicylates Acetaminophen Crossmatch 11/03/21 11/03/21 11/04/21 18:22 Unknown 00:09 WBC RBC Hgb Hct MCH RDW Plt Count Lymph % (Auto) Lymph # (Auto) [place] # (Auto) Seg Neutrophils % Seg Neuts % (Manual) Lymphocytes % (Manual) Nucleated RBC % Seg Neutrophils # Seg Neutrophils # Man Monocytes # (Manual) PT INR APTT D-Dimer Heparin Anti-Xa Level 0.29 L ABG pH ABG pO2 ABG HCO3 ABG O2 Saturation ABG Base Excess ABG Hemoglobin Oxyhemoglobin Sodium Potassium Chloride Carbon Dioxide BUN Creatinine Glucose POC Glucose 178 H 221 H Hemoglobin A1c Lactic Acid Calcium Phosphorus Magnesium Ferritin AST ALT Alkaline Phosphatase Lactate Dehydrogenase Troponin T C-Reactive Protein Total Protein Albumin LDL Cholesterol Direct Urine Creatinine Urine Total Protein Salicylates Acetaminophen Crossmatch 11/04/21 11/04/21 11/04/21 05:09 09:40 09:40 WBC 16.8 H RBC Hgb Hct MCH 27 L RDW 16.5 H Plt Count Lymph % (Auto) Lymph # (Auto) [place] # (Auto) Seg Neutrophils % Seg Neuts % (Manual) Lymphocytes % (Manual) Nucleated RBC % Seg Neutrophils # Seg Neutrophils # Man Monocytes # (Manual) PT INR APTT D-Dimer Heparin Anti-Xa Level ABG pH ABG pO2 ABG HCO3 ABG O2 Saturation ABG Base Excess ABG Hemoglobin Oxyhemoglobin Sodium Potassium 5.9 H Chloride 108.5 H Carbon Dioxide BUN 54 H Creatinine 1.8 H Glucose 198 H POC Glucose 182 H Hemoglobin A1c Lactic Acid Calcium Phosphorus Magnesium 3.00 H Ferritin AST ALT Alkaline Phosphatase Lactate Dehydrogenase Troponin T C-Reactive Protein Total Protein Albumin LDL Cholesterol Direct Urine Creatinine Urine Total Protein Salicylates Acetaminophen Crossmatch 11/04/21 11/04/21 11/04/21 12:13 13:34 14:05 WBC RBC Hgb Hct MCH RDW Plt Count Lymph % (Auto) Lymph # (Auto) [place] # (Auto) Seg Neutrophils % Seg Neuts % (Manual) Lymphocytes % (Manual) Nucleated RBC % Seg Neutrophils # Seg Neutrophils # Man Monocytes # (Manual) PT INR APTT D-Dimer Heparin Anti-Xa Level ABG pH 7.223 L ABG pO2 71.3 L ABG HCO3 ABG O2 Saturation 92.8 L ABG Base Excess ABG Hemoglobin 8.2 L Oxyhemoglobin 91.0 L Sodium Potassium Chloride Carbon Dioxide BUN Creatinine Glucose POC Glucose 184 H Hemoglobin A1c Lactic Acid Calcium Phosphorus Magnesium Ferritin AST ALT Alkaline Phosphatase Lactate Dehydrogenase Troponin T C-Reactive Protein Total Protein Albumin LDL Cholesterol Direct Urine Creatinine 184.6 H Urine Total Protein Salicylates Acetaminophen Crossmatch 11/04/21 11/04/21 11/05/21 18:02 Unknown 00:07 WBC RBC Hgb Hct MCH RDW Plt Count Lymph % (Auto) Lymph # (Auto) [place] # (Auto) Seg Neutrophils % Seg Neuts % (Manual) Lymphocytes % (Manual) Nucleated RBC % Seg Neutrophils # Seg Neutrophils # Man Monocytes # (Manual) PT INR APTT D-Dimer Heparin Anti-Xa Level ABG pH ABG pO2 ABG HCO3 ABG O2 Saturation ABG Base Excess ABG Hemoglobin Oxyhemoglobin Sodium Potassium Chloride Carbon Dioxide BUN Creatinine Glucose POC Glucose 262 H 259 H Hemoglobin A1c Lactic Acid Calcium Phosphorus Magnesium Ferritin AST ALT Alkaline Phosphatase Lactate Dehydrogenase Troponin T C-Reactive Protein Total Protein Albumin LDL Cholesterol Direct Urine Creatinine 190.9 H Urine Total Protein 172 H Salicylates Acetaminophen Crossmatch 11/05/21 11/05/21 11/05/21 04:20 04:20 05:30 WBC 17.9 H RBC 3.64 L Hgb 9.7 L Hct MCH 27 L RDW 16.4 H Plt Count Lymph % (Auto) Lymph # (Auto) [place] # (Auto) Seg Neutrophils % Seg Neuts % (Manual) Lymphocytes % (Manual) Nucleated RBC % Seg Neutrophils # Seg Neutrophils # Man Monocytes # (Manual) PT INR APTT D-Dimer Heparin Anti-Xa Level ABG pH ABG pO2 ABG HCO3 ABG O2 Saturation ABG Base Excess ABG Hemoglobin Oxyhemoglobin Sodium Potassium 5.6 H Chloride 108.4 H Carbon Dioxide BUN 71 H Creatinine 1.9 H Glucose 270 H POC Glucose 283 H Hemoglobin A1c Lactic Acid Calcium Phosphorus Magnesium Ferritin AST ALT Alkaline Phosphatase Lactate Dehydrogenase Troponin T C-Reactive Protein Total Protein Albumin LDL Cholesterol Direct Urine Creatinine Urine Total Protein Salicylates Acetaminophen Crossmatch 11/05/21 11/05/21 11/05/21 10:05 12:10 15:29 WBC RBC Hgb Hct MCH RDW Plt Count Lymph % (Auto) Lymph # (Auto) [place] # (Auto) Seg Neutrophils % Seg Neuts % (Manual) Lymphocytes % (Manual) Nucleated RBC % Seg Neutrophils # Seg Neutrophils # Man Monocytes # (Manual) PT INR APTT D-Dimer Heparin Anti-Xa Level ABG pH 7.248 L ABG pO2 73.7 L ABG HCO3 26.2 H ABG O2 Saturation 93.1 L ABG Base Excess ABG Hemoglobin 8.9 L Oxyhemoglobin 91.4 L Sodium Potassium Chloride Carbon Dioxide BUN Creatinine Glucose POC Glucose 225 H 199 H Hemoglobin A1c Lactic Acid Calcium Phosphorus Magnesium Ferritin AST ALT Alkaline Phosphatase Lactate Dehydrogenase Troponin T C-Reactive Protein Total Protein Albumin LDL Cholesterol Direct Urine Creatinine Urine Total Protein Salicylates Acetaminophen Crossmatch 11/05/21 11/05/21 11/05/21 15:51 17:32 17:40 WBC RBC Hgb Hct MCH RDW Plt Count Lymph % (Auto) Lymph # (Auto) [place] # (Auto) Seg Neutrophils % Seg Neuts % (Manual) Lymphocytes % (Manual) Nucleated RBC % Seg Neutrophils # Seg Neutrophils # Man Monocytes # (Manual) PT INR APTT D-Dimer Heparin Anti-Xa Level ABG pH ABG pO2 ABG HCO3 ABG O2 Saturation ABG Base Excess ABG Hemoglobin Oxyhemoglobin Sodium Potassium 5.2 H Chloride 107.8 H Carbon Dioxide BUN 79 H Creatinine 1.9 H Glucose 204 H POC Glucose 278 H 197 H Hemoglobin A1c Lactic Acid Calcium Phosphorus Magnesium Ferritin AST ALT Alkaline Phosphatase Lactate Dehydrogenase Troponin T C-Reactive Protein Total Protein Albumin LDL Cholesterol Direct Urine Creatinine Urine Total Protein Salicylates Acetaminophen Crossmatch 11/05/21 11/05/21 11/05/21 21:25 22:22 23:43 WBC RBC Hgb Hct MCH RDW Plt Count Lymph % (Auto) Lymph # (Auto) [place] # (Auto) Seg Neutrophils % Seg Neuts % (Manual) Lymphocytes % (Manual) Nucleated RBC % Seg Neutrophils # Seg Neutrophils # Man Monocytes # (Manual) PT INR APTT D-Dimer Heparin Anti-Xa Level ABG pH ABG pO2 ABG HCO3 ABG O2 Saturation ABG Base Excess ABG Hemoglobin Oxyhemoglobin Sodium Potassium 5.3 H Chloride 109.2 H Carbon Dioxide BUN 81 H Creatinine 2.0 H Glucose 195 H POC Glucose 180 H 203 H Hemoglobin A1c Lactic Acid Calcium Phosphorus Magnesium Ferritin AST ALT Alkaline Phosphatase Lactate Dehydrogenase Troponin T C-Reactive Protein Total Protein Albumin LDL Cholesterol Direct Urine Creatinine Urine Total Protein Salicylates Acetaminophen Crossmatch 11/05/21 11/06/21 11/06/21 Unknown 02:35 05:09 WBC RBC Hgb Hct MCH RDW Plt Count Lymph % (Auto) Lymph # (Auto) [place] # (Auto) Seg Neutrophils % Seg Neuts % (Manual) Lymphocytes % (Manual) Nucleated RBC % Seg Neutrophils # Seg Neutrophils # Man Monocytes # (Manual) PT INR APTT D-Dimer Heparin Anti-Xa Level ABG pH ABG pO2 ABG HCO3 ABG O2 Saturation ABG Base Excess ABG Hemoglobin Oxyhemoglobin Sodium 146 H Potassium 6.0 H Chloride 108.1 H 107.1 H Carbon Dioxide 21 L BUN 80 H 84 H Creatinine 2.0 H 2.0 H Glucose 238 H 235 H POC Glucose 215 H Hemoglobin A1c Lactic Acid Calcium Phosphorus Magnesium 2.80 H Ferritin AST ALT 77 H Alkaline Phosphatase Lactate Dehydrogenase Troponin T C-Reactive Protein Total Protein Albumin 3.0 L LDL Cholesterol Direct Urine Creatinine Urine Total Protein Salicylates Acetaminophen Crossmatch 11/06/21 11/06/21 11/06/21 05:40 08:07 08:07 WBC RBC Hgb Hct MCH RDW Plt Count Lymph % (Auto) Lymph # (Auto) [place] # (Auto) Seg Neutrophils % Seg Neuts % (Manual) Lymphocytes % (Manual) Nucleated RBC % Seg Neutrophils # Seg Neutrophils # Man Monocytes # (Manual) PT INR APTT D-Dimer Heparin Anti-Xa Level 1.24 H ABG pH 7.311 L ABG pO2 72.8 L ABG HCO3 29.7 H ABG O2 Saturation 94.1 L ABG Base Excess ABG Hemoglobin 11.4 L Oxyhemoglobin 92.3 L Sodium Potassium 5.2 H Chloride Carbon Dioxide BUN 85 H Creatinine 2.3 H Glucose 236 H POC Glucose Hemoglobin A1c Lactic Acid Calcium Phosphorus Magnesium Ferritin AST ALT Alkaline Phosphatase Lactate Dehydrogenase Troponin T C-Reactive Protein Total Protein Albumin LDL Cholesterol Direct Urine Creatinine Urine Total Protein Salicylates Acetaminophen Crossmatch 11/06/21 11/06/21 11/06/21 12:14 12:57 14:28 WBC RBC Hgb Hct MCH RDW Plt Count Lymph % (Auto) Lymph # (Auto) [place] # (Auto) Seg Neutrophils % Seg Neuts % (Manual) Lymphocytes % (Manual) Nucleated RBC % Seg Neutrophils # Seg Neutrophils # Man Monocytes # (Manual) PT INR APTT D-Dimer Heparin Anti-Xa Level ABG pH 7.282 L ABG pO2 72.6 L ABG HCO3 30.8 H ABG O2 Saturation 93.7 L ABG Base Excess 3.2 H ABG Hemoglobin 8.6 L Oxyhemoglobin 91.8 L Sodium Potassium Chloride Carbon Dioxide BUN 91 H Creatinine 2.6 H Glucose 259 H POC Glucose 225 H Hemoglobin A1c Lactic Acid Calcium Phosphorus Magnesium Ferritin AST ALT Alkaline Phosphatase Lactate Dehydrogenase Troponin T C-Reactive Protein Total Protein Albumin LDL Cholesterol Direct Urine Creatinine Urine Total Protein Salicylates Acetaminophen Crossmatch 11/06/21 11/06/21 11/06/21 17:28 19:20 21:30 WBC RBC Hgb Hct MCH RDW Plt Count Lymph % (Auto) Lymph # (Auto) [place] # (Auto) Seg Neutrophils % Seg Neuts % (Manual) Lymphocytes % (Manual) Nucleated RBC % Seg Neutrophils # Seg Neutrophils # Man Monocytes # (Manual) PT INR APTT D-Dimer Heparin Anti-Xa Level 0.73 H ABG pH ABG pO2 ABG HCO3 ABG O2 Saturation ABG Base Excess ABG Hemoglobin Oxyhemoglobin Sodium Potassium Chloride Carbon Dioxide BUN 95 H Creatinine 2.9 H Glucose 233 H POC Glucose 206 H Hemoglobin A1c Lactic Acid Calcium Phosphorus Magnesium Ferritin AST ALT Alkaline Phosphatase Lactate Dehydrogenase Troponin T C-Reactive Protein Total Protein Albumin LDL Cholesterol Direct Urine Creatinine Urine Total Protein Salicylates Acetaminophen Crossmatch 11/06/21 11/07/21 11/07/21 22:56 05:06 06:30 WBC RBC Hgb Hct MCH RDW Plt Count Lymph % (Auto) Lymph # (Auto) [place] # (Auto) Seg Neutrophils % Seg Neuts % (Manual) Lymphocytes % (Manual) Nucleated RBC % Seg Neutrophils # Seg Neutrophils # Man Monocytes # (Manual) PT INR APTT D-Dimer Heparin Anti-Xa Level ABG pH ABG pO2 ABG HCO3 ABG O2 Saturation ABG Base Excess ABG Hemoglobin Oxyhemoglobin Sodium 146 H Potassium Chloride Carbon Dioxide BUN 98 H Creatinine 2.8 H Glucose 202 H POC Glucose 215 H 172 H Hemoglobin A1c Lactic Acid Calcium Phosphorus 4.90 H D Magnesium 2.90 H Ferritin AST ALT Alkaline Phosphatase Lactate Dehydrogenase Troponin T C-Reactive Protein Total Protein Albumin LDL Cholesterol Direct Urine Creatinine Urine Total Protein Salicylates Acetaminophen Crossmatch 0211/07/21 11/07/21 06:30 11:26 12:15 WBC 16.0 H RBC 3.06 L Hgb 8.2 L Hct 26.1 L MCH 27 L RDW 16.2 H Plt Count Lymph % (Auto) Lymph # (Auto) [place] # (Auto) Seg Neutrophils % Seg Neuts % (Manual) 77.0 H Lymphocytes % (Manual) 11.0 L Nucleated RBC % 2.0 H Seg Neutrophils # Seg Neutrophils # Man 12.3 H Monocytes # (Manual) PT INR APTT D-Dimer Heparin Anti-Xa Level ABG pH 7.298 L ABG pO2 73.0 L ABG HCO3 33.3 H ABG O2 Saturation 94.4 L ABG Base Excess 5.8 H ABG Hemoglobin 8.2 L Oxyhemoglobin 92.7 L Sodium Potassium Chloride Carbon Dioxide BUN Creatinine Glucose POC Glucose 179 H Hemoglobin A1c Lactic Acid Calcium Phosphorus Magnesium Ferritin AST ALT Alkaline Phosphatase Lactate Dehydrogenase Troponin T C-Reactive Protein Total Protein Albumin LDL Cholesterol Direct Urine Creatinine Urine Total Protein Salicylates Acetaminophen Crossmatch 11/07/21 11/07/21 11/07/21 17:57 22:16 23:49 WBC RBC Hgb Hct MCH RDW Plt Count Lymph % (Auto) Lymph # (Auto) [place] # (Auto) Seg Neutrophils % Seg Neuts % (Manual) Lymphocytes % (Manual) Nucleated RBC % Seg Neutrophils # Seg Neutrophils # Man Monocytes # (Manual) PT INR APTT D-Dimer Heparin Anti-Xa Level ABG pH ABG pO2 ABG HCO3 ABG O2 Saturation ABG Base Excess ABG Hemoglobin Oxyhemoglobin Sodium Potassium Chloride Carbon Dioxide BUN Creatinine Glucose POC Glucose 166 H 223 H 190 H Hemoglobin A1c Lactic Acid Calcium Phosphorus Magnesium Ferritin AST ALT Alkaline Phosphatase Lactate Dehydrogenase Troponin T C-Reactive Protein Total Protein Albumin LDL Cholesterol Direct Urine Creatinine Urine Total Protein Salicylates Acetaminophen Crossmatch 11/08/21 11/08/21 11/08/21 04:20 04:20 06:16 WBC 22.1 H RBC 3.01 L Hgb 8.1 L Hct 25.6 L MCH 27 L RDW 15.4 H Plt Count Lymph % (Auto) Lymph # (Auto) [place] # (Auto) Seg Neutrophils % Seg Neuts % (Manual) Lymphocytes % (Manual) Nucleated RBC % Seg Neutrophils # Seg Neutrophils # Man Monocytes # (Manual) PT INR APTT D-Dimer Heparin Anti-Xa Level ABG pH ABG pO2 ABG HCO3 ABG O2 Saturation ABG Base Excess ABG Hemoglobin Oxyhemoglobin Sodium 151 H Potassium 3.1 L D Chloride 107.3 H Carbon Dioxide 31 H BUN 82 H Creatinine 1.8 H Glucose 232 H POC Glucose 198 H Hemoglobin A1c Lactic Acid Calcium 8.1 L Phosphorus Magnesium Ferritin AST ALT Alkaline Phosphatase Lactate Dehydrogenase Troponin T C-Reactive Protein Total Protein Albumin LDL Cholesterol Direct Urine Creatinine Urine Total Protein Salicylates Acetaminophen Crossmatch 11/08/21 11/08/21 11/08/21 11:38 12:00 18:29 WBC RBC Hgb Hct MCH RDW Plt Count Lymph % (Auto) Lymph # (Auto) [place] # (Auto) Seg Neutrophils % Seg Neuts % (Manual) Lymphocytes % (Manual) Nucleated RBC % Seg Neutrophils # Seg Neutrophils # Man Monocytes # (Manual) PT INR APTT D-Dimer Heparin Anti-Xa Level ABG pH ABG pO2 ABG HCO3 ABG O2 Saturation ABG Base Excess ABG Hemoglobin Oxyhemoglobin Sodium Potassium 3.0 L Chloride Carbon Dioxide BUN Creatinine Glucose POC Glucose 190 H 211 H Hemoglobin A1c Lactic Acid Calcium Phosphorus Magnesium Ferritin AST ALT Alkaline Phosphatase Lactate Dehydrogenase Troponin T C-Reactive Protein Total Protein Albumin LDL Cholesterol Direct Urine Creatinine Urine Total Protein Salicylates Acetaminophen Crossmatch 11/08/21 11/08/21 11/09/21 21:34 21:40 00:36 WBC RBC Hgb Hct MCH RDW Plt Count Lymph % (Auto) Lymph # (Auto) [place] # (Auto) Seg Neutrophils % Seg Neuts % (Manual) Lymphocytes % (Manual) Nucleated RBC % Seg Neutrophils # Seg Neutrophils # Man Monocytes # (Manual) PT INR APTT D-Dimer Heparin Anti-Xa Level ABG pH ABG pO2 ABG HCO3 ABG O2 Saturation ABG Base Excess ABG Hemoglobin Oxyhemoglobin Sodium 148 H Potassium 2.8 L* Chloride Carbon Dioxide 31 H BUN 68 H Creatinine 1.5 H Glucose 191 H POC Glucose 194 H 140 H Hemoglobin A1c Lactic Acid Calcium 8.2 L Phosphorus Magnesium Ferritin AST ALT Alkaline Phosphatase Lactate Dehydrogenase Troponin T C-Reactive Protein Total Protein Albumin LDL Cholesterol Direct Urine Creatinine Urine Total Protein Salicylates Acetaminophen Crossmatch 11/09/21 11/09/21 11/09/21 04:51 04:51 04:51 WBC 27.6 H RBC 3.18 L Hgb 8.4 L Hct 26.6 L MCH 27 L RDW 15.3 H Plt Count Lymph % (Auto) Lymph # (Auto) [place] # (Auto) Seg Neutrophils % Seg Neuts % (Manual) Lymphocytes % (Manual) Nucleated RBC % Seg Neutrophils # Seg Neutrophils # Man Monocytes # (Manual) PT INR APTT D-Dimer Heparin Anti-Xa Level 0.18 L ABG pH ABG pO2 ABG HCO3 ABG O2 Saturation ABG Base Excess ABG Hemoglobin Oxyhemoglobin Sodium 148 H Potassium 2.7 L* Chloride Carbon Dioxide BUN 59 H Creatinine 1.4 H Glucose 143 H POC Glucose Hemoglobin A1c Lactic Acid Calcium 8.3 L Phosphorus Magnesium Ferritin AST ALT Alkaline Phosphatase Lactate Dehydrogenase Troponin T C-Reactive Protein Total Protein Albumin LDL Cholesterol Direct Urine Creatinine Urine Total Protein Salicylates Acetaminophen Crossmatch 11/09/21 11/09/21 11/09/21 05:52 08:45 11:00 WBC RBC Hgb Hct MCH RDW Plt Count Lymph % (Auto) Lymph # (Auto) [place] # (Auto) Seg Neutrophils % Seg Neuts % (Manual) Lymphocytes % (Manual) Nucleated RBC % Seg Neutrophils # Seg Neutrophils # Man Monocytes # (Manual) PT INR APTT D-Dimer Heparin Anti-Xa Level ABG pH ABG pO2 73.2 L ABG HCO3 33.8 H ABG O2 Saturation ABG Base Excess 8.7 H ABG Hemoglobin 8.5 L Oxyhemoglobin 94.1 L Sodium Potassium Chloride Carbon Dioxide BUN Creatinine Glucose POC Glucose 166 H 136 H Hemoglobin A1c Lactic Acid Calcium Phosphorus Magnesium Ferritin AST ALT Alkaline Phosphatase Lactate Dehydrogenase Troponin T C-Reactive Protein Total Protein Albumin LDL Cholesterol Direct Urine Creatinine Urine Total Protein Salicylates Acetaminophen Crossmatch 11/09/21 11/09/21 11/09/21 15:48 16:10 20:31 WBC RBC Hgb Hct MCH RDW Plt Count Lymph % (Auto) Lymph # (Auto) [place] # (Auto) Seg Neutrophils % Seg Neuts % (Manual) Lymphocytes % (Manual) Nucleated RBC % Seg Neutrophils # Seg Neutrophils # Man Monocytes # (Manual) PT INR APTT D-Dimer Heparin Anti-Xa Level ABG pH ABG pO2 ABG HCO3 ABG O2 Saturation ABG Base Excess ABG Hemoglobin Oxyhemoglobin Sodium Potassium 2.8 L* Chloride Carbon Dioxide 31 H BUN 53 H Creatinine 1.3 H Glucose 208 H POC Glucose 203 H 166 H Hemoglobin A1c Lactic Acid Calcium 7.9 L Phosphorus Magnesium Ferritin AST ALT Alkaline Phosphatase Lactate Dehydrogenase Troponin T C-Reactive Protein Total Protein Albumin LDL Cholesterol Direct Urine Creatinine Urine Total Protein Salicylates Acetaminophen Crossmatch 11/09/21 11/09/21 11/09/21 21:30 23:16 Unknown WBC RBC Hgb Hct MCH RDW Plt Count Lymph % (Auto) Lymph # (Auto) [place] # (Auto) Seg Neutrophils % Seg Neuts % (Manual) Lymphocytes % (Manual) Nucleated RBC % Seg Neutrophils # Seg Neutrophils # Man Monocytes # (Manual) PT INR APTT D-Dimer Heparin Anti-Xa Level 0.24 L ABG pH ABG pO2 ABG HCO3 ABG O2 Saturation ABG Base Excess ABG Hemoglobin Oxyhemoglobin Sodium Potassium Chloride Carbon Dioxide BUN 52 H Creatinine 1.4 H Glucose 185 H POC Glucose 172 H Hemoglobin A1c Lactic Acid Calcium 7.8 L Phosphorus Magnesium Ferritin AST ALT Alkaline Phosphatase Lactate Dehydrogenase Troponin T C-Reactive Protein Total Protein Albumin LDL Cholesterol Direct Urine Creatinine Urine Total Protein Salicylates Acetaminophen Crossmatch 11/10/21 11/10/21 11/10/21 02:00 04:17 04:17 WBC 24.5 H RBC 2.75 L Hgb 7.5 L Hct 22.9 L MCH 27 L RDW Plt Count Lymph % (Auto) Lymph # (Auto) [place] # (Auto) Seg Neutrophils % Seg Neuts % (Manual) Lymphocytes % (Manual) Nucleated RBC % Seg Neutrophils # Seg Neutrophils # Man Monocytes # (Manual) PT INR APTT D-Dimer Heparin Anti-Xa Level 0.26 L ABG pH ABG pO2 ABG HCO3 ABG O2 Saturation ABG Base Excess ABG Hemoglobin Oxyhemoglobin Sodium Potassium 2.9 L* Chloride Carbon Dioxide 35 H BUN 48 H Creatinine Glucose 212 H POC Glucose Hemoglobin A1c Lactic Acid Calcium 8.1 L Phosphorus Magnesium Ferritin AST ALT Alkaline Phosphatase Lactate Dehydrogenase Troponin T C-Reactive Protein Total Protein Albumin LDL Cholesterol Direct Urine Creatinine Urine Total Protein Salicylates Acetaminophen Crossmatch 11/10/21 11/10/21 11/10/21 05:01 08:39 11:03 WBC RBC Hgb Hct MCH RDW Plt Count Lymph % (Auto) Lymph # (Auto) [place] # (Auto) Seg Neutrophils % Seg Neuts % (Manual) Lymphocytes % (Manual) Nucleated RBC % Seg Neutrophils # Seg Neutrophils # Man Monocytes # (Manual) PT INR APTT D-Dimer Heparin Anti-Xa Level 0.12 L ABG pH ABG pO2 ABG HCO3 ABG O2 Saturation ABG Base Excess ABG Hemoglobin Oxyhemoglobin Sodium Potassium Chloride Carbon Dioxide BUN Creatinine Glucose POC Glucose 203 H 152 H Hemoglobin A1c Lactic Acid Calcium Phosphorus Magnesium Ferritin AST ALT Alkaline Phosphatase Lactate Dehydrogenase Troponin T C-Reactive Protein Total Protein Albumin LDL Cholesterol Direct Urine Creatinine Urine Total Protein Salicylates Acetaminophen Crossmatch 11/10/21 11/10/21 11/10/21 12:45 15:43 21:05 WBC RBC Hgb Hct MCH RDW Plt Count Lymph % (Auto) Lymph # (Auto) [place] # (Auto) Seg Neutrophils % Seg Neuts % (Manual) Lymphocytes % (Manual) Nucleated RBC % Seg Neutrophils # Seg Neutrophils # Man Monocytes # (Manual) PT INR APTT D-Dimer Heparin Anti-Xa Level ABG pH ABG pO2 ABG HCO3 ABG O2 Saturation ABG Base Excess ABG Hemoglobin Oxyhemoglobin Sodium 146 H Potassium 3.3 L Chloride Carbon Dioxide 31 H BUN 43 H Creatinine Glucose 155 H POC Glucose 139 H 139 H Hemoglobin A1c Lactic Acid Calcium 8.3 L Phosphorus Magnesium Ferritin AST ALT Alkaline Phosphatase Lactate Dehydrogenase Troponin T C-Reactive Protein Total Protein Albumin LDL Cholesterol Direct Urine Creatinine Urine Total Protein Salicylates Acetaminophen Crossmatch 11/10/21 11/11/21 11/11/21 23:25 03:49 03:49 WBC 22.1 H RBC 2.69 L Hgb 7.2 L Hct 22.7 L MCH 27 L RDW Plt Count Lymph % (Auto) Lymph # (Auto) [place] # (Auto) Seg Neutrophils % Seg Neuts % (Manual) Lymphocytes % (Manual) Nucleated RBC % Seg Neutrophils # Seg Neutrophils # Man Monocytes # (Manual) PT INR APTT D-Dimer Heparin Anti-Xa Level ABG pH ABG pO2 ABG HCO3 ABG O2 Saturation ABG Base Excess ABG Hemoglobin Oxyhemoglobin Sodium Potassium Chloride Carbon Dioxide 32 H BUN 44 H Creatinine 1.3 H Glucose 173 H POC Glucose 146 H Hemoglobin A1c Lactic Acid Calcium Phosphorus Magnesium Ferritin AST ALT Alkaline Phosphatase Lactate Dehydrogenase Troponin T C-Reactive Protein Total Protein Albumin LDL Cholesterol Direct Urine Creatinine Urine Total Protein Salicylates Acetaminophen Crossmatch 11/11/21 11/11/21 11/11/21 05:03 10:50 11:32 WBC RBC Hgb Hct MCH RDW Plt Count Lymph % (Auto) Lymph # (Auto) [place] # (Auto) Seg Neutrophils % Seg Neuts % (Manual) Lymphocytes % (Manual) Nucleated RBC % Seg Neutrophils # Seg Neutrophils # Man Monocytes # (Manual) PT INR APTT D-Dimer Heparin Anti-Xa Level ABG pH ABG pO2 ABG HCO3 ABG O2 Saturation ABG Base Excess ABG Hemoglobin Oxyhemoglobin Sodium Potassium Chloride Carbon Dioxide BUN Creatinine Glucose POC Glucose 152 H 129 H 133 H Hemoglobin A1c Lactic Acid Calcium Phosphorus Magnesium Ferritin AST ALT Alkaline Phosphatase Lactate Dehydrogenase Troponin T C-Reactive Protein Total Protein Albumin LDL Cholesterol Direct Urine Creatinine Urine Total Protein Salicylates Acetaminophen Crossmatch 11/11/21 11/11/21 11/11/21 13:53 16:31 17:13 WBC RBC Hgb Hct MCH RDW Plt Count Lymph % (Auto) Lymph # (Auto) [place] # (Auto) Seg Neutrophils % Seg Neuts % (Manual) Lymphocytes % (Manual) Nucleated RBC % Seg Neutrophils # Seg Neutrophils # Man Monocytes # (Manual) PT INR APTT D-Dimer Heparin Anti-Xa Level ABG pH 7.475 H ABG pO2 64.1 L ABG HCO3 32.4 H ABG O2 Saturation ABG Base Excess 8.0 H ABG Hemoglobin 7.6 L Oxyhemoglobin 94.0 L Sodium Potassium Chloride Carbon Dioxide BUN Creatinine Glucose POC Glucose 116 H 125 H Hemoglobin A1c Lactic Acid Calcium Phosphorus Magnesium Ferritin AST ALT Alkaline Phosphatase Lactate Dehydrogenase Troponin T C-Reactive Protein Total Protein Albumin LDL Cholesterol Direct Urine Creatinine Urine Total Protein Salicylates Acetaminophen Crossmatch 11/11/21 11/11/21 11/12/21 20:40 23:35 03:30 WBC 17.7 H RBC 2.37 L Hgb 6.3 L Hct 20.0 L MCH 27 L RDW 15.5 H Plt Count Lymph % (Auto) Lymph # (Auto) [place] # (Auto) Seg Neutrophils % Seg Neuts % (Manual) Lymphocytes % (Manual) Nucleated RBC % Seg Neutrophils # Seg Neutrophils # Man Monocytes # (Manual) PT INR APTT D-Dimer Heparin Anti-Xa Level 0.26 L ABG pH ABG pO2 ABG HCO3 ABG O2 Saturation ABG Base Excess ABG Hemoglobin Oxyhemoglobin Sodium Potassium Chloride Carbon Dioxide BUN Creatinine Glucose POC Glucose 118 H Hemoglobin A1c Lactic Acid Calcium Phosphorus Magnesium Ferritin AST ALT Alkaline Phosphatase Lactate Dehydrogenase Troponin T C-Reactive Protein Total Protein Albumin LDL Cholesterol Direct Urine Creatinine Urine Total Protein Salicylates Acetaminophen Crossmatch 11/12/21 11/12/21 11/12/21 03:30 04:15 11:53 WBC RBC Hgb Hct MCH RDW Plt Count Lymph % (Auto) Lymph # (Auto) [place] # (Auto) Seg Neutrophils % Seg Neuts % (Manual) Lymphocytes % (Manual) Nucleated RBC % Seg Neutrophils # Seg Neutrophils # Man Monocytes # (Manual) PT INR APTT D-Dimer Heparin Anti-Xa Level ABG pH ABG pO2 ABG HCO3 ABG O2 Saturation ABG Base Excess ABG Hemoglobin Oxyhemoglobin Sodium Potassium Chloride Carbon Dioxide 33 H BUN 38 H Creatinine 1.3 H Glucose 102 H POC Glucose 62 L Hemoglobin A1c Lactic Acid Calcium 8.2 L Phosphorus Magnesium Ferritin AST ALT Alkaline Phosphatase Lactate Dehydrogenase Troponin T C-Reactive Protein Total Protein Albumin LDL Cholesterol Direct Urine Creatinine Urine Total Protein Salicylates Acetaminophen Crossmatch See Detail 11/12/21 11/12/21 11/12/21 17:20 19:14 23:11 WBC RBC Hgb 6.2 L Hct 19.5 L* MCH RDW Plt Count Lymph % (Auto) Lymph # (Auto) [place] # (Auto) Seg Neutrophils % Seg Neuts % (Manual) Lymphocytes % (Manual) Nucleated RBC % Seg Neutrophils # Seg Neutrophils # Man Monocytes # (Manual) PT INR APTT D-Dimer Heparin Anti-Xa Level ABG pH ABG pO2 ABG HCO3 ABG O2 Saturation ABG Base Excess ABG Hemoglobin Oxyhemoglobin Sodium Potassium Chloride Carbon Dioxide BUN Creatinine Glucose POC Glucose 115 H 131 H Hemoglobin A1c Lactic Acid Calcium Phosphorus Magnesium Ferritin AST ALT Alkaline Phosphatase Lactate Dehydrogenase Troponin T C-Reactive Protein Total Protein Albumin LDL Cholesterol Direct Urine Creatinine Urine Total Protein Salicylates Acetaminophen Crossmatch 11/13/21 11/13/21 11/13/21 00:13 04:17 04:17 WBC 23.8 H RBC 2.84 L Hgb 7.4 L 7.8 L Hct 23.3 L 24.9 L MCH 27 L RDW 15.4 H Plt Count Lymph % (Auto) Lymph # (Auto) [place] # (Auto) Seg Neutrophils % Seg Neuts % (Manual) Lymphocytes % (Manual) Nucleated RBC % Seg Neutrophils # Seg Neutrophils # Man Monocytes # (Manual) PT INR APTT D-Dimer Heparin Anti-Xa Level ABG pH ABG pO2 ABG HCO3 ABG O2 Saturation ABG Base Excess ABG Hemoglobin Oxyhemoglobin Sodium 146 H Potassium Chloride Carbon Dioxide BUN 44 H Creatinine 1.6 H Glucose 144 H POC Glucose Hemoglobin A1c Lactic Acid Calcium 7.9 L Phosphorus 5.10 H D Magnesium Ferritin AST ALT Alkaline Phosphatase Lactate Dehydrogenase Troponin T C-Reactive Protein Total Protein Albumin LDL Cholesterol Direct Urine Creatinine Urine Total Protein Salicylates Acetaminophen Crossmatch 11/13/21 11/13/21 11/13/21 05:52 10:54 15:57 WBC RBC Hgb Hct MCH RDW Plt Count Lymph % (Auto) Lymph # (Auto) [place] # (Auto) Seg Neutrophils % Seg Neuts % (Manual) Lymphocytes % (Manual) Nucleated RBC % Seg Neutrophils # Seg Neutrophils # Man Monocytes # (Manual) PT INR APTT D-Dimer Heparin Anti-Xa Level ABG pH ABG pO2 ABG HCO3 ABG O2 Saturation ABG Base Excess ABG Hemoglobin Oxyhemoglobin Sodium Potassium Chloride Carbon Dioxide BUN Creatinine Glucose POC Glucose 123 H 147 H 207 H Hemoglobin A1c Lactic Acid Calcium Phosphorus Magnesium Ferritin AST ALT Alkaline Phosphatase Lactate Dehydrogenase Troponin T C-Reactive Protein Total Protein Albumin LDL Cholesterol Direct Urine Creatinine Urine Total Protein Salicylates Acetaminophen Crossmatch 11/13/21 11/13/21 11/14/21 16:01 23:18 04:55 WBC 23.9 H RBC 2.86 L Hgb 6.5 L 8.3 L Hct 20.3 L 24.5 L MCH RDW Plt Count Lymph % (Auto) Lymph # (Auto) [place] # (Auto) Seg Neutrophils % Seg Neuts % (Manual) Lymphocytes % (Manual) Nucleated RBC % Seg Neutrophils # Seg Neutrophils # Man Monocytes # (Manual) PT INR APTT D-Dimer Heparin Anti-Xa Level ABG pH ABG pO2 ABG HCO3 ABG O2 Saturation ABG Base Excess ABG Hemoglobin Oxyhemoglobin Sodium Potassium Chloride Carbon Dioxide BUN Creatinine Glucose POC Glucose 209 H Hemoglobin A1c Lactic Acid Calcium Phosphorus Magnesium Ferritin AST ALT Alkaline Phosphatase Lactate Dehydrogenase Troponin T C-Reactive Protein Total Protein Albumin LDL Cholesterol Direct Urine Creatinine Urine Total Protein Salicylates Acetaminophen Crossmatch 11/14/21 11/14/21 11/14/21 04:55 05:09 11:35 WBC RBC Hgb Hct MCH RDW Plt Count Lymph % (Auto) Lymph # (Auto) [place] # (Auto) Seg Neutrophils % Seg Neuts % (Manual) Lymphocytes % (Manual) Nucleated RBC % Seg Neutrophils # Seg Neutrophils # Man Monocytes # (Manual) PT INR APTT D-Dimer Heparin Anti-Xa Level ABG pH ABG pO2 ABG HCO3 ABG O2 Saturation ABG Base Excess ABG Hemoglobin Oxyhemoglobin Sodium 148 H Potassium Chloride 109.0 H Carbon Dioxide BUN 42 H Creatinine 1.6 H Glucose 184 H POC Glucose 169 H 154 H Hemoglobin A1c Lactic Acid Calcium 8.0 L Phosphorus Magnesium Ferritin AST ALT Alkaline Phosphatase Lactate Dehydrogenase Troponin T C-Reactive Protein Total Protein Albumin LDL Cholesterol Direct Urine Creatinine Urine Total Protein Salicylates Acetaminophen Crossmatch 11/14/21 11/14/21 11/15/21 16:57 23:11 04:36 WBC RBC Hgb Hct MCH RDW Plt Count Lymph % (Auto) Lymph # (Auto) [place] # (Auto) Seg Neutrophils % Seg Neuts % (Manual) Lymphocytes % (Manual) Nucleated RBC % Seg Neutrophils # Seg Neutrophils # Man Monocytes # (Manual) PT INR APTT D-Dimer Heparin Anti-Xa Level ABG pH ABG pO2 ABG HCO3 ABG O2 Saturation ABG Base Excess ABG Hemoglobin Oxyhemoglobin Sodium 151 H Potassium Chloride 111.2 H Carbon Dioxide BUN 36 H Creatinine 1.3 H Glucose 136 H POC Glucose 124 H 118 H Hemoglobin A1c Lactic Acid Calcium 8.1 L Phosphorus Magnesium Ferritin AST ALT Alkaline Phosphatase Lactate Dehydrogenase Troponin T C-Reactive Protein Total Protein Albumin LDL Cholesterol Direct Urine Creatinine Urine Total Protein Salicylates Acetaminophen Crossmatch Allied health notes reviewed: nursing
[2021-11-15] MEDS: FAMOTIDINE 10 MG TAB PO SCH ×2 (10:57→21:37)
[2021-11-15] MEDS: SENNOSIDES/DOCUSATE SODIUM 8.6/50 MG TAB FEEDTUBE SCH ×2 (10:57→21:39)
[2021-11-15] MEDS: SPIRONOLACTONE 25 MG TAB PO SCH (10:57)
[2021-11-15] MEDS: AMIODARONE 200 MG TAB PO SCH (10:57)
--- NOTE | 2021-11-15 15:05 | Progress Note ---
Assessment and Plan Patient is a 66-year-old female with unknown past medical history brought into the ED following outside of hospital cardiac arrest thought to be PEA with thought to have downtime of 7 to 9 minutes however details are unclear S/P PEA cardiopulmonary arrest-No longer on pressors Acute hypoxic respiratory failure-pulm following Septic shock Aspiration pneumonia Atrial flutter w/ RVR- currently sinus rhythm Pneumothorax- s/p CT Acute DVT-on Heparin gtt Hypokalemia Transaminitis Retroperitoneal Hematoma Echo 10/30/2021-technically difficult study due to body habitus. EF 25 to 30%. Right ventricular systolic function is normal. No pericardial effusion Plan: Continue metoprolol 50 mg p.o. every 6 hours and hydralazine 50mg PO TID and amio 200mg PO QD, No LAYO/ ARB due to elevated creatinine Heparin gtt is on hold in the setting of anemia requiring pRBC transfusion (secondary to retroperitoneal hematoma) Continue present management Patient seen in conjunction with Dr. Johnson who agrees with this plan of care - Patient Problems (1) Cardiopulmonary arrest Current Visit: Yes Status: Acute (2) Hypokalemia Current Visit: Yes Status: Acute (3) Transaminitis Current Visit: Yes Status: Acute (4) Aspiration pneumonia Current Visit: Yes Status: Acute (5) Acute hypoxemic respiratory failure Current Visit: Yes Status: Acute (6) Septic shock Current Visit: Yes Status: Acute (7) Toxic metabolic encephalopathy Current Visit: Yes Status: Acute (8) Shock liver Current Visit: Yes Status: Acute Subjective Date of service: 11/15/21 Principal diagnosis: AHRF; Cardiac arrest; R. pneumothorax; pneumonia; AMS; DVT's; SIERRA; Obesity Interval history: Patient resting in bed in no acute distress. Patient currently on nasal cannula Patient sinus rate trending 80s Objective Vital Signs Temp Pulse Pulse Resp BP Pulse Ox 11/15/21 14:30 88 41 H 182/104 98 11/15/21 14:18 90 195/99 11/15/21 14:01 86 23 195/99 97 11/15/21 13:31 88 38 H 165/94 97 11/15/21 13:01 89 18 152/89 90 11/15/21 12:31 89 24 152/89 98 11/15/21 12:00 98.8 F 92 H 85 25 H 152/89 96 11/15/21 11:31 88 28 H 165/87 96 11/15/21 11:00 89 25 H 165/87 98 11/15/21 10:57 89 156/73 11/15/21 10:31 89 20 156/73 98 11/15/21 10:01 86 29 H 156/73 97 11/15/21 09:31 87 21 159/86 93 11/15/21 09:00 83 28 H 159/86 96 11/15/21 08:50 107 H 23 98 11/15/21 08:31 107 H 25 H 131/80 98 11/15/21 08:00 99.6 F 84 86 16 131/80 97 11/15/21 07:31 107 H 26 H 130/70 100 11/15/21 07:00 79 15 130/70 98 11/15/21 06:31 83 16 160/81 100 11/15/21 06:24 17 11/15/21 06:23 82 160/81 11/15/21 06:00 83 24 160/81 100 11/15/21 05:31 81 18 148/68 100 11/15/21 05:00 82 19 148/68 99 11/15/21 04:31 81 25 H 138/72 99 11/15/21 04:25 80 11/15/21 04:00 100.2 F H 83 28 H 138/72 99 11/15/21 03:31 82 23 148/78 100 11/15/21 03:00 79 34 H 148/78 99 11/15/21 02:31 78 19 154/84 99 11/15/21 02:00 77 15 154/84 100 11/15/21 01:31 79 15 163/86 100 11/15/21 01:00 87 28 H 163/86 100 11/15/21 00:58 89 168/84 11/15/21 00:31 88 24 168/84 100 11/15/21 00:30 87 11/15/21 00:00 100.6 F H 87 23 168/84 99 11/14/21 23:31 93 H 37 H 179/88 97 11/14/21 23:30 92 H 23 179/88 98 11/14/21 23:00 91 H 33 H 179/88 96 11/14/21 22:31 91 H 45 H 181/93 96 11/14/21 22:00 87 87 12 181/93 98 11/14/21 21:46 19 11/14/21 21:45 19 11/14/21 21:31 88 22 172/96 98 11/14/21 21:01 89 45 H 172/96 94 11/14/21 20:31 83 36 H 160/85 96 11/14/21 20:10 83 11/14/21 20:01 81 46 H 160/85 97 11/14/21 20:00 100.2 F H 11/14/21 19:57 97 11/14/21 19:31 97 11/14/21 19:08 77 40 H 100 11/14/21 18:30 79 30 H 161/85 97 11/14/21 18:03 79 43 H 157/86 97 11/14/21 18:00 81 38 H 157/86 97 11/14/21 17:30 80 39 H 161/86 98 11/14/21 17:00 156/86 97 11/14/21 16:30 83 26 H 162/87 99 11/14/21 16:00 98.2 F 82 106 H 37 H 147/87 100 11/14/21 15:30 77 50 H 141/85 99 - Physical Examination General: No Apparent Distress HEENT: Positive: EOMI, Normocephaly Neck: Negative: JVD/HJR Cardiac: Positive: Reg Rate and Rhythm Lungs: Positive: Decreased Breath Sounds Neuro: Positive: Grossly Intact Abdomen: Positive: Soft Skin: Negative: Rash Musculoskeletal: No Pain Extremities: Present: edema, warm - Labs and Meds Comprehensive Metabolic Panel 11/15/21 Range/Units 04:36 Sodium 151 H (137-145) mmol/L Potassium 3.7 (3.6-5.0) mmol/L Chloride 111.2 H (98-107) mmol/L Carbon Dioxide 28 (22-30) mmol/L BUN 36 H (7-17) mg/dL Creatinine 1.3 H (0.6-1.2) mg/dL Glucose 136 H (65-100) mg/dL Calcium 8.1 L (8.4-10.2) mg/dL - Imaging and Cardiology EKG: report reviewed, image reviewed Echo: report reviewed - Telemetry EKG Rhythm: Sinus Rhythm - EKG Sinus rhythms and dysrhythmias: sinus rhythm, sinus tachycardia Ventricular dysrhythmias: ventricular premature com Repolarization changes or abnormalities: nonspecific abnormality, ST segment, and/or T wave Myocardial infarction: septal GA (old age or ind - Allied health notes Allied health notes reviewed: nursing
[2021-11-15] MEDS: INSULIN GLARGINE 100 UNITS/ML SUB-Q SCH (21:38)
[2021-11-16] MEDS: INSULIN LISPRO 100 UNIT/ML SUB-Q SCH ×2 (00:52→23:58)
[2021-11-16] MEDS: FREE WATER PO SCH (02:38)
[2021-11-16] MEDS: ALPRAZolam 0.25 MG TAB PO PRN (05:02)
[2021-11-16] MEDS: METOPROLOL TARTRATE 50 MG TAB FEEDTUBE SCH (05:03)
[2021-11-16 05:37] LABS: Basophils # (Auto) 0.1 K/mm3 (0.0-0.1); Basophils % (Auto) 0.3 % (0.0-1.8); Eosinophils # (Auto) 0.3 K/mm3 (0.0-0.4); Eosinophils % (Auto) 1.5 % (0.0-4.3); Hematocrit 26.1 % (30.3-42.9); Hemoglobin 8.3 gm/dl (10.1-14.3); Lymphocytes # (Auto) 1.2 K/mm3 (1.2-5.4); Lymphocytes % (Auto) 6.3 % (13.4-35.0); Mean Corpuscular HGB Conc 32 % (30-34); Mean Corpuscular Volume 89 fl (79-97); Monocytes # (Auto) 1.9 K/mm3 (0.0-0.8); Monocytes % (Auto) 10.2 % (0.0-7.3); Platelet Count 317 K/mm3 (140-440); Red Blood Count 2.92 M/mm3 (3.65-5.03); Red Cell Distribution Width 15.8 % (13.2-15.2)
[2021-11-16 05:53] LABS: Calcium 7.8 mg/dL (8.4-10.2)
--- NOTE | 2021-11-16 08:51 | Progress Note ---
Assessment and Plan Assessment and plan: Assessment and plan: This is a 66-year-old female with past medical history of HTN and Obesity admitted for septic shock, s/p cardiac arrest with ROSC in the field now intubated and on ventilatory support. Neuro: Acute Metabolic encephalopathy, agitation/anxiety -Avoid delirium -Reorientation as needed -Precedex gtt -Maintain sleep-wake cycle -CT head no acute focal parenchymal lesion in the brain -Neurology consulted, appreciate recommendations -EEG and MRI noted, Neuro recommend to cut down on sedation as possible Cardiac: Atrial fibrillation/atrial flutter s/p cardiac arrest, HFrEF, hypotension, h/o htn -Outside hospital cardiac arrest with ROSC -Cardiology consulted, appreciate recommendations - S/p Cardizem gtt- d/c due to low EF; now on PO Amio -s/p vasopressor support with levophed -Echocardiogram shows left ventricular systolic function severely decreased, LVEF 25 to 30%, no pericardial effusion -proBNP 5622 -BP monitoring per protocol Respiratory: Acute hypoxic respiratory failure, right pneumothorax, Angioedema (resolved) -CCM consulted, appreciate recommendations -Intubated on 10/29 and extubated on 11/11 -ABG and CXR per CCM -Bipap q HS and prn -NC during day -pulm hygiene -SPO2 monitoring -s/p right chest tube -s/p steroids for angioedema GI: Protein calorie malnutrion, transaminitis likely shocked liver -24 hours -2485 mL -PPI -NTR consulted for tube feedings -Trend LFTs -BM: 11/14 -failed ST eval : Acute kidney injury likely secondary to vasomotor nephropathy, hypernatremia -Nephrology consulted, appreciate recommendations -Krishna replaced 11/05 urinary retention -Strict intake and output -Renally dose medications -Avoid nephrotoxic medications -Daily weights -FWF -FeNa 0.05 indicating pre-renal -Medically treat hyperkalemia again -Trend BMP ID: Septic shock -COVID-19 PCR negative -S/p antibiotic therapy with Rocephin and azithromycin () -S/p Levophed gtt for hypotension -Follow-up culture data -Monitor WBC and temperature curve Endo: Hyperglycemia 9resolved) -Avoid hypoglycemia -Hbg A1C 6.7 -SSI and lantus q hs (titrate as needed) -Accu-Cheks q. 6 Heme: Acute DVT in the left posterior tibial vein and bilateral peroneal veins, Leukocytosis, Anemia, retroperitoneal bleed -D-dimer greater than 10,000 -CTA chest with no evidence of PE -Bilateral lower extremity ultrasound positive for DVT -Heparin gtt on hold d/t anemia -vasuclar surgery consulted, appreciate recommendations -recommended multiphasic CT angio of the abdomen and pelvis with and without contrast if H/H drops and does not recommend IVC filter at this time as the DVTs are infrapopliteal and recommends a DVT study weekly for 2 weeks -Trend CBC -SCDs to BLE while in bed -Transfuse hemoglobin less than 7 -Monitor for signs of bleeding The high probability of a clinically significant, sudden or life threatening deterioration of the [multi] system(s) required my full and direct attention, intervention and personal management. The aggregate critical care time was [60] minutes. This time is in addition to time spent performing reported procedures but includes the following: [x] Data Review and interpretation [x] Patient assessment and monitoring of vital signs [x] Documentation [x] Medication orders and management Disposition Plan: imcu Total Time Spent with Patient (Minutes): 60 History Interval history: Interval history: This is a 66-year-old female with HTN and obesity who presented to the hospital on 10/29 via EMS with s/p cardiac arrest with CPR initiated by bystanders and upon EMS arrival a David airway was placed and ACLS was initiated. Patient had ROSC after 5-7 minutes and was started on epinephrine in route for hemodynamic support. Upon arrival to the emergency department patient GCS was noted to be 3 and she was biting the endotracheal tube with dilated pupils and copious vomitus and gastric secretions in the oropharynx/mouth/neck. David airway was removed and patient was intubated in the emergency department. Patient was admitted to the hospitalist service s/p cardiac arrest on sepsis and pneumonia protocol with consults to [facility]. Cardiology was consulted upon arrival to ICU. Hospital Course to Date: 10/30: Intubated and sedated, on fentanyl gtt. Open eyes spontaneously but does not follow any commands. On vasopressors, titrate as tolerated for MAP above 65. Patient febrile overnight, continue empiric IV Abx, culture data and COVID PCR pending. Patient is also s/p CT placement due to spontaneous pneumothorax. 2D ec ho is pending and Cardiology is consulted. 10/31: Patient remains intubated and following commands. Levophed drip stopped and potassium repleted. Patient started on tube feeding. Remains in soft jer ateral restraints. 11/01: RN noted ST changes on BSM and 12 lead EKG obtained which showed ST. Given Ativan 1mg for agitation as she is maxed on fentanyl drip and IV push fentanyl did not seem to help. Patient was started on CPAP this morning by RT but remained on fentanyl drip and was having periods of apnea. Plan was to retry CPAP again in the p.m. with sedation off. 11/02: Rate increased r/t hypercapnea on ABG, sedation reduced. Given kionex for hyperkalemia and was started on levophed overnight for hypotension. 11/03: Overnight patient had tachycardia and was given Cardizem and Lopressor. Lopressor was repeated in the a.m. due to tachycardia. Patient will be started on amiodarone with a bolus per cardiology. Patient started on normal saline per liter per [facility] and steroids for angioedema. Noted to have bright red blood when suctioned from oh ETT. Remains on heparin drip as H/H is stable for now. Will reevaluate. Fentanyl drip was restarted last night due to agitation. Dr. Krystle bullock updated family today 11/04: Patient was sedated on fentanyl however off sedation is able to follow commands, a.m. labs completed in the p.m. and show hyperkalemia with increased renal function studies. Nephrology, neurology consulted by [facility]. Given Kayexalate, insulin and D50 for hyperkalemia. Patient remains on amiodarone. 11/05: Patient needed to be sedated on fentanyl again to today. overnight krishna was replaced. Hyperkalemia->given kionex 60 for 5.6. Repeat K 6-> Dr. Grant informed and requested bumex, kionex, insulin, d50, calcium gluconate and sodium bicarb with repeat BMP in 2 hours which were placed. HR remains elevated. 11/06: Patient remained in atrial fibrillation/atrial flutter with heart rate in the 150s despite being on amnio drip and was given amnio bolus, Cardizem bolus and started on Cardizem drip by cardiology. Patient is on beta-blockers p.o. scheduled and to feedings changed to Nepro. Kayexalate was given in the morning by nephrology due to hyperkalemia. 11/07: Patient is only responsive to mild stimuli, precedex added in an attempt to wean off fentanyl gtt to better assess her mental status. Neurology also on consult, pending MRI and EEG. Patient remains in Aflutter this am, HR in the 80 to 90s, still on amiodarone and heparin gtt. 11/08: Fentanyl gtt is off, only on precedex gtt. Patient is still not following any commands. MRI brain and EEG completed. Neuro recommendations noted, sedatives agents decreased. FWF added for hypernatremia and low K repleted, repeat labs ordered. Placed a call and spoke with patient's daughter, Eva Brown . She was updated on patient's conditions and status. All questions and concerns were voiced at this time. 11/09: Patient is awake and alert this am, following commands and appropriate. Remains on precedex gtt, plan for possible PST today. Hypertensive overnight, meds adjusted by Cardio and PRN Hydralazine added for SBP greater than 160. CT dislodged overnight, CXR is stable with no significant change. F/U CXR in the am. Patient's daughter, Eva Brown, visited with patient. She was updated on patient's status and goal of care for today. All questions and concerns were voiced at this time. 11/10: Mentation remains intact, still on precedex gtt. This am CXR noted still with fluid overload s/p X1 dose of IV lasix, good response from IV lasix overnight. Hypernatremia improved, D5W d/dayday. Still with persistent hypokalemia, continue electrolytes replacement and frequent lab check. Daily IV lasix and aldactone added by Cardio. Patient is also with persistent low grade fevers overnight, leukocytosis with mild improvement this am. Will get a repeat sputum culture, hold off on IV abx for now. Consider ID consult if fevers and leukocytosis persist. Patient tolerated PST X4hrs yesterday. PST again today, plan to wean to extubate if tolerated. 11/11: IAM overnight. Off precedex gtt and tolerated PST this am. Plan to wean to extubate today. Additional IV lasix given, plan to keep patient at a net negative balance for better lung compliance. F/U CXR in the am. K improved this am, repeat BMP this afternoon since diuresing. Remains with low grade fevers, leukocytosis downtrending, will continue to monitor. Speech/PT/OT ordered 11/12: S/p extubation, now stable on 3L NC. This am CXR noted with no significant changes, lasix changed to IV X4days BID. Drop in H&H this am, and Lt. flank ecchymosis noted. Heparin gtt on hold for now and orders placed for 1 unit of PRBCs and Ct Abd/Pelvis w/o con to r/o retroperitoneal bleed. Pending speech swallow eval, keep patient NPO for now. Patient is stable for IMCU status 11/13: Patient with increased WOB and tachycardia this am, patient was placed on Bipap and precedex gtt was resumed. CXR with mild improvement. CT Abd/Pelvis also reviewed large hematomas noted at the Lt. retroperitoneum and left posterior lateral abdominal wall. Heparin gtt is already on hold, patient is hemodynamically stable. Vascular Surgery consulted for possible IVC filter eval. Patient s/p 2units of PRBCs, will continue to trend H&H and transfuse if hbg is less than 7. Worsening renal function this am, IF diuretic on hold for now. Patient is also febrile with spike in wbcs most likely reactive to bleed, will panculture and hold off on IV Abx for now. Patient also failed speech bedside swallow eval yesterday, NGT in placed plan to resume enteral nutrition 11/14: Patient had bilateral lower extremity Doppler ultrasound and vascular surgery has recommended multiphasic CT angio of the abdomen and pelvis with and without contrast if H/H drops and does not recommend IVC filter at this time as the DVTs are infrapopliteal and recommends a DVT study weekly for 2 weeks. FWF 250 q4 ml per nephro. Started on as needed Xanax and p.o. amiodarone. She did not pass her ST evaluation today. Will be transferred to IMCU. 11/15: Resting comfortably on encounter. Speech cleared for pureed diet. Remains on 3l satting 98 % on bedside encounter. Does not appear to be in respiratory distress. Will continue to hold AC, No ivc filter planned at this time. qweekly doppler to monitor for migration of DVT per vascular. If demonstrated, will consider IVC filter. CBC ordered for tomorrow, will continue monitoring in light of retroperitoneal hematoma. FWF increased by nephrology to 350cc q4hr d/t hypernatremia. UOP/renal function both improved. D/w cardiology, will continue amiodorone an additional 24hrs. Plan to change dosing of metoprolol. Continue to wean off of precedex. Continue xanax scheduled for anxiety. physical therapy recs noted, fernanda / ltac will discuss with CM. Continue IMCU monitoring. 11/16: Pulmonary congestion this AM. CXR ordered. Lasix 40 mg IV x 1 order this AM. Will monitor for 24 hrs. potential downgrade to medical floor tomorrow. Hospitalist Physical - Physical exam Narrative exam: General appearance: Present: no acute distress, obese - EENT Eyes: Present: PERRL, EOM intact ENT: hearing intact, dentition normal - Neck Neck: Present: normal ROM - Respiratory Respiratory effort: normal Respiratory: bilateral: CTA - Cardiovascular Rhythm: regular Heart Sounds: Present: S1 & S2, systolic murmur, diastolic murmur - Extremities Extremities: no ischemia, pulses intact, pulses symmetrical, normal temperature, normal color Peripheral Pulses: within normal limits - Abdominal General gastrointestinal: soft, non-distended, normal bowel sounds - Integumentary Integumentary: Present: warm, dry, bruising from hematoma noted. - Psychiatric Psychiatric: cooperative - Neurologic Neurologic: CNII-XII intact, moves all extremities - Allied Health Allied health notes reviewed: nursing, RT, social work - Constitutional Vitals: Temp Pulse Resp BP Pulse Ox 98.7 F 80 17 169/89 97 11/16/21 07:22 11/16/21 07:00 11/16/21 07:00 11/16/21 07:00 11/16/21 07:00 General appearance: Present: no acute distress, obese HEART Score - HEART Score Troponin: Troponin T 1.150 ng/mL (0.00-0.029) H* D 10/29/21 22:34 Results - Labs CBC & Chem 7: 11/16/21 05:11 11/16/21 05:11 Labs: Laboratory Last Values WBC 18.2 K/mm3 (4.5-11.0) H 11/16/21 05:11 RBC 2.92 M/mm3 (3.65-5.03) L 11/16/21 05:11 Hgb 8.3 gm/dl (10.1-14.3) L 11/16/21 05:11 Hct 26.1 % (30.3-42.9) L 11/16/21 05:11 MCV 89 fl (79-97) 11/16/21 05:11 MCH 29 pg (28-32) 11/16/21 05:11 MCHC 32 % (30-34) 11/16/21 05:11 RDW 15.8 % (13.2-15.2) H 11/16/21 05:11 Plt Count 317 K/mm3 (140-440) 11/16/21 05:11 Lymph % (Auto) 6.3 % (13.4-35.0) L 11/16/21 05:11 [place] % (Auto) 10.2 % (0.0-7.3) H 11/16/21 05:11 Eos % (Auto) 1.5 % (0.0-4.3) 11/16/21 05:11 Baso % (Auto) 0.3 % (0.0-1.8) 11/16/21 05:11 Lymph # (Auto) 1.2 K/mm3 (1.2-5.4) 11/16/21 05:11 [place] # (Auto) 1.9 K/mm3 (0.0-0.8) H 11/16/21 05:11 Eos # (Auto) 0.3 K/mm3 (0.0-0.4) 11/16/21 05:11 Baso # (Auto) 0.1 K/mm3 (0.0-0.1) 11/16/21 05:11 Add Manual Diff Complete 11/07/21 06:30 Total Counted 100 11/07/21 06:30 Seg Neutrophils % 81.7 % (40.0-70.0) H 11/16/21 05:11 Seg Neuts % (Manual) 77.0 % (40.0-70.0) H 11/07/21 06:30 Band Neutrophils % 1.0 % 11/07/21 06:30 Lymphocytes % (Manual) 11.0 % (13.4-35.0) L 11/07/21 06:30 Reactive Lymphs % (Man) 3.0 % 11/07/21 06:30 Monocytes % (Manual) 2.0 % (0.0-7.3) 11/07/21 06:30 Eosinophils % (Manual) 0 % (0.0-4.3) 11/07/21 06:30 Basophils % (Manual) 0 % (0.0-1.8) 11/07/21 06:30 Metamyelocytes % 1.0 % 11/07/21 06:30 Myelocytes % 5.0 % 11/07/21 06:30 Promyelocytes % 0 % 11/07/21 06:30 Blast Cells % 0 % 11/07/21 06:30 Nucleated RBC % 2.0 % (0.0-0.9) H 11/07/21 06:30 Seg Neutrophils # 14.9 K/mm3 (1.8-7.7) H 11/16/21 05:11 Seg Neutrophils # Man 12.3 K/mm3 (1.8-7.7) H 11/07/21 06:30 Band Neutrophils # 0.2 K/mm3 11/07/21 06:30 Lymphocytes # (Manual) 1.8 K/mm3 (1.2-5.4) 11/07/21 06:30 Abs React Lymphs (Man) 0.5 K/mm3 11/07/21 06:30 Monocytes # (Manual) 0.3 K/mm3 (0.0-0.8) 11/07/21 06:30 Eosinophils # (Manual) 0.0 K/mm3 (0.0-0.4) 11/07/21 06:30 Basophils # (Manual) 0.0 K/mm3 (0.0-0.1) 11/07/21 06:30 Metamyelocytes # 0.2 K/mm3 11/07/21 06:30 Myelocytes # 0.8 K/mm3 11/07/21 06:30 Promyelocytes # 0.0 K/mm3 11/07/21 06:30 Blast Cells # 0.0 K/mm3 11/07/21 06:30 WBC Morphology Not Reportable 11/07/21 06:30 Hypersegmented Neuts Not Reportable 11/07/21 06:30 Hyposegmented Neuts Not Reportable 11/07/21 06:30 Hypogranular Neuts Not Reportable 11/07/21 06:30 Smudge Cells Not Reportable 11/07/21 06:30 Toxic Granulation Not Reportable 11/07/21 06:30 Toxic Vacuolation Not Reportable 11/07/21 06:30 Dohle Bodies Not Reportable 11/07/21 06:30 Pelger-Huet Anomaly Not Reportable 11/07/21 06:30 Manny Rods Not Reportable 11/07/21 06:30 Platelet Estimate Consistent w auto 11/07/21 06:30 Clumped Platelets Not Reportable 11/07/21 06:30 Plt Clumps, EDTA Not Reportable 11/07/21 06:30 Large Platelets 1+ 11/07/21 06:30 Giant Platelets Not Reportable 11/07/21 06:30 Platelet Satelliting Not Reportable 11/07/21 06:30 Plt Morphology Comment Not Reportable 11/07/21 06:30 RBC Morphology Not Reportable 11/07/21 06:30 Dimorphic RBCs Not Reportable 11/07/21 06:30 Polychromasia Not Reportable 11/07/21 06:30 Hypochromasia 1+ 11/07/21 06:30 Poikilocytosis Not Reportable 11/07/21 06:30 Anisocytosis Not Reportable 11/07/21 06:30 Microcytosis Not Reportable 11/07/21 06:30 Macrocytosis Not Reportable 11/07/21 06:30 Spherocytes 1+ 11/07/21 06:30 Pappenheimer Bodies Not Reportable 11/07/21 06:30 Sickle Cells Not Reportable 11/07/21 06:30 Target Cells 1+ 11/07/21 06:30 Tear Drop Cells Not Reportable 11/07/21 06:30 Ovalocytes Not Reportable 11/07/21 06:30 Helmet Cells Not Reportable 11/07/21 06:30 [place] Bodies Not Reportable 11/07/21 06:30 [place] Rings Not Reportable 11/07/21 06:30 [place] Cells Not Reportable 11/07/21 06:30 Bite Cells Not Reportable 11/07/21 06:30 Crenated Cell Not Reportable 11/07/21 06:30 Elliptocytes Not Reportable 11/07/21 06:30 Acanthocytes (Spur) Not Reportable 11/07/21 06:30 Rouleaux Not Reportable 11/07/21 06:30 Hemoglobin C Crystals Not Reportable 11/07/21 06:30 Schistocytes Not Reportable 11/07/21 06:30 Malaria parasites Not Reportable 11/07/21 06:30 Magdy Bodies Not Reportable 11/07/21 06:30 Hem Pathologist Commnt No 11/07/21 06:30 PT 17.2 Sec. (12.2-14.9) H 10/30/21 16:30 INR 1.27 (0.87-1.13) H 10/30/21 16:30 APTT 44.4 Sec. (24.2-36.6) H 10/30/21 16:30 D-Dimer > 81401 ng/mlDDU (0-234) H 10/30/21 Unknown Heparin Anti-Xa Level 0.62 U.I./ml (0.3-0.7) 11/12/21 03:30 ABG pH 7.475 pH Units (7.350-7.450) H 11/11/21 13:53 ABG pCO2 45.0 mm Hg 11/11/21 13:53 ABG pO2 64.1 mm Hg (80.0-90.0) L 11/11/21 13:53 ABG HCO3 32.4 mmol/L (20.0-26.0) H 11/11/21 13:53 ABG O2 Saturation 96.3 % (95.0-99.0) 11/11/21 13:53 ABG O2 Content 10.1 (0.0-44) 11/11/21 13:53 ABG Base Excess 8.0 mmol/L (-2.0-3.0) H 11/11/21 13:53 ABG Hemoglobin 7.6 gm/dl (12.0-16.0) L 11/11/21 13:53 ABG Carboxyhemoglobin 1.8 % (0.0-5.0) 11/11/21 13:53 ABG Methemoglobin 0.5 % (0.0-1.5) 11/11/21 13:53 Oxyhemoglobin 94.0 % (95.0-99.0) L 11/11/21 13:53 FiO2 32 % 11/11/21 13:53 Sodium 146 mmol/L (137-145) H 11/16/21 05:11 Potassium 3.9 mmol/L (3.6-5.0) 11/16/21 05:11 Chloride 108.0 mmol/L (98-107) H 11/16/21 05:11 Carbon Dioxide 29 mmol/L (22-30) 11/16/21 05:11 Anion Gap 13 mmol/L 11/16/21 05:11 BUN 25 mg/dL (7-17) H 11/16/21 05:11 Creatinine 1.1 mg/dL (0.6-1.2) 11/16/21 05:11 Estimated GFR 60 ml/min 11/16/21 05:11 BUN/Creatinine Ratio 23 % 11/16/21 05:11 Glucose 123 mg/dL (65-100) H 11/16/21 05:11 POC Glucose 109 mg/dL (70-105) H 11/16/21 05:37 Hemoglobin A1c 6.7 % (4-6) H 10/31/21 04:30 Lactic Acid 0.70 mmol/L (0.7-2.0) 10/31/21 15:45 Calcium 7.8 mg/dL (8.4-10.2) L 11/16/21 05:11 Phosphorus 3.20 mg/dL (2.5-4.5) D 11/14/21 04:55 Magnesium 2.20 mg/dL (1.7-2.3) 11/14/21 04:55 Ferritin 208.4 ng/mL (10.0-200.0) H 10/30/21 Unknown Total Bilirubin < 0.20 mg/dL (0.1-1.2) 11/06/21 02:35 AST 21 units/L (5-40) 11/06/21 02:35 ALT 77 units/L (7-56) H 11/06/21 02:35 Alkaline Phosphatase 84 units/L (35-129) 11/06/21 02:35 Ammonia 31.0 umol/L (25-60) 10/29/21 15:10 Lactate Dehydrogenase 469 units/L (91-180) H 10/30/21 Unknown Troponin T 1.150 ng/mL (0.00-0.029) H* D 10/29/21 22:34 C-Reactive Protein 13.40 mg/dL (0.00-1.30) H 10/30/21 Unknown Total Protein 6.3 g/dL (6.3-8.2) 11/06/21 02:35 Albumin 3.0 g/dL (3.9-5) L 11/06/21 02:35 Albumin/Globulin Ratio 0.9 % 11/06/21 02:35 Triglycerides 68 mg/dL (2-149) 10/29/21 19:40 Cholesterol 98 mg/dL (50-199) 10/29/21 19:40 LDL Cholesterol Direct 43 mg/dL (50-130) L 10/29/21 19:40 HDL Cholesterol 50 mg/dL (40-59) 10/29/21 19:40 Cholesterol/HDL Ratio 1.96 % 10/29/21 19:40 Procalcitonin 61.95 ng/mL (<0.15) 10/30/21 Unknown TSH 3.080 mlU/mL (0.270-4.200) 10/29/21 15:10 Urine Color Yellow (Yellow) 11/13/21 08:30 Urine Turbidity Slightly-cloudy (Clear) 11/13/21 08:30 Urine pH 6.0 (5.0-7.0) 11/13/21 08:30 Ur Specific [place] 1.010 (1.003-1.030) 11/13/21 08:30 Urine Protein <15 mg/dl mg/dL (Negative) 11/13/21 08:30 Urine Glucose (UA) Neg mg/dL (Negative) 11/13/21 08:30 Urine Ketones Tr mg/dL (Negative) 11/13/21 08:30 Urine Blood Sm (Negative) 11/13/21 08:30 Urine Nitrite Neg (Negative) 11/13/21 08:30 Urine Bilirubin Neg (Negative) 11/13/21 08:30 Urine Urobilinogen < 2.0 mg/dL (<2.0) 11/13/21 08:30 Ur Leukocyte Esterase Neg (Negative) 11/13/21 08:30 Urine WBC (Auto) < 1.0 /HPF (0.0-6.0) 11/13/21 08:30 Urine RBC (Auto) < 1.0 /HPF (0.0-6.0) 11/13/21 08:30 U Epithel Cells (Auto) < 1.0 /HPF (0-13.0) 11/13/21 08:30 Urine Mucus Few /HPF 10/29/21 18:15 Urine Eosinophils None seen (None Seen) 11/04/21 Unknown Urine Creatinine 190.9 mg/dL (0.1-20.0) H 11/04/21 Unknown Protein/Creatinin Ratio 0.90 11/04/21 Unknown Urine Sodium 10 mmol/L 11/04/21 Unknown Urine Total Protein 172 mg/dL (5-11.8) H 11/04/21 Unknown Salicylates < 0.3 mg/dL (2.8-20.0) L 10/29/21 15:10 Urine Opiates Screen Negative 10/29/21 18:15 Urine Methadone Screen Negative 10/29/21 18:15 Acetaminophen 5.0 ug/mL (10.0-30.0) L 10/29/21 15:10 Ur Barbiturates Screen Negative 10/29/21 18:15 Ur Phencyclidine Scrn Negative 10/29/21 18:15 Ur Amphetamines Screen Negative 10/29/21 18:15 U Benzodiazepines Scrn Negative 10/29/21 18:15 Urine Cocaine Screen Negative 10/29/21 18:15 U Marijuana (THC) Screen Negative 10/29/21 18:15 Drugs of Abuse Note Disclamer 10/29/21 18:15 Plasma/Serum Alcohol < 0.01 % (0-0.07) 10/29/21 15:10 Coronavirus (PCR) Negative (Negative) 10/30/21 Unknown Blood Type O POSITIVE 11/12/21 04:15 Antibody Screen Negative 11/12/21 04:15 Crossmatch See Detail 11/12/21 04:15 Microbiology: Microbiology 11/13/21 08:38 Peripheral/Venous Blood Culture - Preliminary NO GROWTH AFTER 48 HOURS 11/13/21 08:38 Peripheral/Venous Blood Culture - Preliminary NO GROWTH AFTER 48 HOURS Krishna/IV: Voiding Method Indwelling Catheter Active Medications - Current Medications Current Medications: Generic Name Dose Route Start Last Admin Trade Name Freq PRN Reason Stop Dose Admin Acetaminophen 650 mg 10/29/21 17:04 11/12/21 22:53 Acetaminophen 650 Mg Rect Supp DC 650 mg Q6H PRN Administration Pain MILD(1-3)/Fever >100.5/NIEVES Alprazolam 0.25 mg 11/14/21 14:29 11/16/21 05:02 Alprazolam 0.25 Mg Tab PO 0.25 mg Q8H PRN Administration Anxiety Amiodarone HCl 200 mg 11/14/21 11:00 11/15/21 10:57 Amiodarone 200 Mg Tab PO 200 mg DAILY RAMON Administration Lipase/Protease/Amylase 1 each 10/31/21 08:56 Lipase 10,500/Protease 25,000/Amylase 43,750 (Units) Dr Ivory FEEDTUBE PRN PRN For Clogged Feeding Tube Dextrose 0 ml 11/04/21 13:48 11/12/21 05:45 Dextrose 10% *Hypoglycemia IV 50 ml PRN PRN Administration Hypoglycemia Famotidine 10 mg 11/06/21 10:00 11/15/21 21:37 Famotidine 10 Mg Tab PO 10 mg BID RAMON Administration Hydrophilic Ointment 1 applic 10/29/21 14:29 11/09/21 08:51 Lip Therapy Vaseline TP 1 applic Q2HR PRN Administration Dry Lips Insulin Glargine 10 units 11/13/21 22:00 11/15/21 21:38 Insulin Glargine 100 Units/Ml SUB-Q 10 units QHS RAMON Administration Insulin Human Lispro 0 unit 10/30/21 16:00 11/16/21 00:52 Insulin Lispro 100 Unit/Ml SUB-Q Not Given Q6HR [facility] Protocol Metoprolol Tartrate 50 mg 11/07/21 12:00 11/16/21 05:03 Metoprolol Tartrate 50 Mg Tab FEEDTUBE 50 mg Q6H RAMON Administration Multi-Ingred Cream/Lotion/Oil/Oint 1 applic 10/29/21 14:29 11/06/21 09:25 Mineral Oil/Petrolatum, White Ophth Oint 3.5 Gm OU 1 applic Q4HR PRN Administration Dry Eye(s) Senna/Docusate Sodium 1 tab 10/29/21 15:00 11/15/21 21:39 Sennosides/Docusate Sodium 8.6/50 Mg Tab FEEDTUBE Not Given BID RAMON Simple Syrup 15 ml 10/31/21 08:56 Simple Syrup 15 Ml FEEDTUBE PRN PRN Hypoglycemia Simple Syrup 30 ml 10/31/21 08:56 Simple Syrup 15 Ml FEEDTUBE PRN PRN Hypoglycemia Sodium Bicarbonate 325 mg 10/31/21 08:56 Sodium Bicarbonate 325 Mg Tab FEEDTUBE PRN PRN For Clogged Feeding Tube Sodium Chloride 10 ml 10/29/21 22:00 11/15/21 22:54 Sodium Chloride 0.9% 10 Ml Flush Syringe IV 10 ml BID RAMON Administration Sodium Chloride 10 ml 10/29/21 17:04 Sodium Chloride 0.9% 10 Ml Flush Syringe IV PRN PRN LINE FLUSH Spironolactone 25 mg 11/10/21 10:00 11/15/21 10:57 Spironolactone 25 Mg Tab PO 25 mg QDAY RAMON Administration Nutrition/Malnutrition Assess - Dietary Evaluation Nutrition/Malnutrition Findings: Nutrition Notes Start: 10/30/21 09:50 Freq: Status: Active Protocol: Document 11/15/21 17:52 MEENU (Rec: 11/15/21 18:08 MEENU [id number]) Nutrition Notes Initial or Follow up Reassessment Current Diagnosis Acute Kidney Injury,Sepsis, Respiratory Failure Other Pertinent Diagnosis SIERRA/ATN, s/p Cardiac Arrest, DVT, Anemia, Pneumonia, Pneumothorax. Current Diet Pureed Diet (since L 11/15). Labs/Tests 11/15: Na 151, Cl 111.2, BUN 36, Crea 1.3, Glu 136. Pertinent Medications 11/15: Insulin, others nutritionally unremarkable. Height 5 ft 10 in Weight 112 kg [place] Body Weight (kg) 68.18 BMI 35.4 Weight change and time frame 5.3 Kg body weight gained in 1 week reported. Weight Status Obese Subjective/Other Information RD consult for routine F/u on TF tolerance. Pt extubated 11/11, according to Progress notes. DEPARTMENT EDITOR 11/14: Reassessment was deferred secondary to the patient being placed back on BIPAP due to saturations decreasing to 80's. DEPARTMENT EDITOR 11/15: Reassessment of swallowing function was conducted. Patient was given pureed and thins. Minimal jaw movement was noted with pureed with a slight increase in work of breathing. Laryngeal elevation was reduced. No evidence of aspiration was identified with thins nor pureed. No reports available on Pt's PO intake of meals at the time . Percent of energy/protein needs met: Prescribed Pureed Diet provides for energy/protein needs (1,804 Kcal/77 g) during LOS. Burn Absent Trauma Absent GI Symptoms None Food Allergy No Skin Integrity/Comment Assessment WNL. Minimum of two criteria No #1 Nutrition Diagnosis Inadequate oral intake Comments: DEPARTMENT EDITOR 11/15: Reassessment of swallowing function was conducted. Patient was given pureed and thins. Minimal jaw movement was noted with pureed with a slight increase in work of breathing. Laryngeal elevation was reduced. No evidence of aspiration was identified with thins nor pureed. Diagnosis Progress(for reassessment Improved documentation) Is patient on ventilator? Yes Is Patient Ambulatory and/or Out of Bed No REE-([facility]-confined to bed) [phone] Kcal/Kg value to use for calculation 15 Approximate Energy Requirements Using 1680 kcal/Kg Calculation Used for Recommendations Kcal/kg Additional Notes Protein: 0.8-1.2 g/Kg IBW; 70- 105 g/day. Fluids: 1 ml/Kcal, or as per MD. Nutrition Intervention Change Diet Order: Continue Pureed Diet. Nutrition Support: d/c. Goal #1 Maintain body weight within +/ -3% of admission body weight during LOS. Goal #2 Facilitate PO intake of meals with mechanical modification during LOS. Follow-Up By: 11/17/21 Additional Comments Continue monitoring food tolerance, %PO intake of meals , and BM.
[2021-11-16] MEDS ORDERED: FUROSEMIDE 40 MG/4 ML INJ IV SCH ×2 (11:00→14:45)
[2021-11-16] MEDS: SPIRONOLACTONE 25 MG TAB PO SCH (11:11)
[2021-11-16] MEDS: FAMOTIDINE 10 MG TAB PO SCH ×2 (11:12→22:15)
[2021-11-16] MEDS: AMIODARONE 200 MG TAB PO SCH (11:12)
[2021-11-16] MEDS: SENNOSIDES/DOCUSATE SODIUM 8.6/50 MG TAB FEEDTUBE SCH (11:12)
--- NOTE | 2021-11-16 11:57 | Progress Note ---
Assessment and Plan Assessment: Acute Renal Failure secondary to Ischemic ATN secondary to Sepsis, Cardiac arrest and Hypotension S/P Cardiac Arrest Acute Hypoxemic Respiratory Failure Acute DVT Sepsis CHF Anemia Hyperkalemia Plan: Renal labs reviewed. Serum creatinine 1.1 today, yesterday's was 1.3, non- oliguric ARF likely secondary to Ischemic ATN No IVF as LVEF 25-30 % CXR showed- mild improving edema On Spironolactone 25 mg po daily DVT-S/P Heparin drip Sinus Tachycardia-S/P Amiodarone drip Hypernatremia-Sodium level 146 today, prior was 151. Continue Free water flush with 350 ml every 4 hours via tube feeds S/P D5W Anemia-transfuse as needed Obtain daily weights Strict I/O's daily Renally dose medications Avoid nephrotoxic agents Continue to monitor renal function Plan of care reviewed by Dr. Giordano Subjective Date of service: 11/16/21 Principal diagnosis: AHRF; Cardiac arrest; R. pneumothorax; pneumonia; AMS; DVT's; SIERRA; Obesity Interval history: Patient seen lying in bed. States feels better today. Objective - Vital Signs Vital signs: Vital Signs - 12hr 11/16/21 11/16/21 11/16/21 00:00 00:02 01:00 Temperature 99.6 F Pulse Rate 78 81 104 H Pulse Rate [ From Monitor] Respiratory 41 H 39 H 40 H Rate Blood Pressure 174/94 174/94 158/88 O2 Sat by Pulse 97 99 96 Oximetry 11/16/21 11/16/21 11/16/21 02:00 03:00 03:50 Temperature Pulse Rate 85 79 78 Pulse Rate [ 85 From Monitor] Respiratory 11 L 38 H Rate Blood Pressure 158/88 165/87 O2 Sat by Pulse 99 100 Oximetry 11/16/21 11/16/21 11/16/21 04:00 04:30 05:00 Temperature 98.9 F Pulse Rate 78 83 82 Pulse Rate [ From Monitor] Respiratory 34 H 35 H 14 Rate Blood Pressure 175/91 175/91 161/88 O2 Sat by Pulse 99 100 100 Oximetry 11/16/21 11/16/21 11/16/21 06:00 07:00 07:22 Temperature 98.7 F Pulse Rate 80 80 Pulse Rate [ From Monitor] Respiratory 32 H 17 Rate Blood Pressure 169/89 169/89 O2 Sat by Pulse 98 97 Oximetry 11/16/21 11/16/21 11/16/21 09:59 11:11 11:46 Temperature 98.5 F Pulse Rate 86 Pulse Rate [ From Monitor] Respiratory Rate Blood Pressure 175/93 O2 Sat by Pulse 97 Oximetry - General Appearance General appearance: well-developed, appears stated age, obese EENT: ATNC, PERRL, hearing intact Neck: no JVD, supple Respiratory: Present: Decreased Breath Sounds Cardiology: S1S2 Gastrointestinal: normoactive bowel sounds Integumentary: warm and dry Neurologic: other (Awake and alert) Musculoskeletal: decreased ROM - Lab 11/16/21 05:11 11/16/21 05:11 Most recent lab results ABG pH 7.475 pH Units (7.350-7.450) H 11/11/21 13:53 ABG pCO2 45.0 mm Hg 11/11/21 13:53 ABG pO2 64.1 mm Hg (80.0-90.0) L 11/11/21 13:53 ABG HCO3 32.4 mmol/L (20.0-26.0) H 11/11/21 13:53 ABG O2 Saturation 96.3 % (95.0-99.0) 11/11/21 13:53 Calcium 7.8 mg/dL (8.4-10.2) L 11/16/21 05:11 Phosphorus 3.20 mg/dL (2.5-4.5) D 11/14/21 04:55 Magnesium 2.20 mg/dL (1.7-2.3) 11/14/21 04:55 Urine Creatinine 190.9 mg/dL (0.1-20.0) H 11/04/21 Unknown Urine Sodium 10 mmol/L 11/04/21 Unknown Urine Total Protein 172 mg/dL (5-11.8) H 11/04/21 Unknown Medications & Allergies - Medications Allergies/Adverse Reactions: Allergies No Known Allergies Allergy (Verified 10/29/21 14:01) Home Medications: Home Medications Medication Instructions Recorded Confirmed Last Taken Type Unobtainable 11/10/21 11/10/21 Unknown History Active Medications: Generic Name Dose Route Start Last Admin Trade Name Freq PRN Reason Stop Dose Admin Acetaminophen 650 mg 10/29/21 17:04 11/12/21 22:53 Acetaminophen [address] 650 mg Q6H PRN Administration Pain MILD(1-3)/Fever >100.5/NIEVES Alprazolam 0.25 mg 11/14/21 14:29 11/16/21 05:02 Alprazolam 0.25 Mg Tab PO 0.25 mg Q8H PRN Administration Anxiety Amiodarone HCl 200 mg 11/14/21 11:00 11/16/21 11:12 Amiodarone 200 Mg Tab PO 200 mg DAILY RAMON Administration Lipase/Protease/Amylase 1 each 10/31/21 08:56 Lipase 10,500/Protease 25,000/Amylase 43,750 (Units) Dr Ivory FEEDTUBE PRN PRN For Clogged Feeding Tube Dextrose 0 ml 11/04/21 13:48 11/12/21 05:45 Dextrose 10% *Hypoglycemia IV 50 ml PRN PRN Administration Hypoglycemia Famotidine 10 mg 11/06/21 10:00 11/16/21 11:12 Famotidine 10 Mg Tab PO 10 mg BID RAMON Administration Furosemide 40 mg 11/16/21 11:00 11/16/21 11:16 Furosemide 40 Mg/4 Ml Inj IV 11/16/21 14:00 40 mg [id number]@1100 RAMON Administration Hydrophilic Ointment 1 applic 10/29/21 14:29 11/09/21 08:51 Lip Therapy Vaseline TP 1 applic Q2HR PRN Administration Dry Lips Insulin Glargine 10 units 11/13/21 22:00 11/15/21 21:38 Insulin Glargine 100 Units/Ml SUB-Q 10 units QHS RAMON Administration Insulin Human Lispro 0 unit 10/30/21 16:00 11/16/21 00:52 Insulin Lispro 100 Unit/Ml SUB-Q Not Given Q6HR [facility] Protocol Metoprolol Tartrate 50 mg 11/07/21 12:00 11/16/21 05:03 Metoprolol Tartrate 50 Mg Tab FEEDTUBE 50 mg Q6H RAMON Administration Multi-Ingred Cream/Lotion/Oil/Oint 1 applic 10/29/21 14:29 11/06/21 09:25 Mineral Oil/Petrolatum, White Ophth Oint 3.5 Gm OU 1 applic Q4HR PRN Administration Dry Eye(s) Senna/Docusate Sodium 1 tab 10/29/21 15:00 11/16/21 11:12 Sennosides/Docusate Sodium 8.6/50 Mg Tab FEEDTUBE 1 tab BID RAMON Administration Simple Syrup 15 ml 10/31/21 08:56 Simple Syrup 15 Ml FEEDTUBE PRN PRN Hypoglycemia Simple Syrup 30 ml 10/31/21 08:56 Simple Syrup 15 Ml FEEDTUBE PRN PRN Hypoglycemia Sodium Bicarbonate 325 mg 10/31/21 08:56 Sodium Bicarbonate 325 Mg Tab FEEDTUBE PRN PRN For Clogged Feeding Tube Sodium Chloride 10 ml 10/29/21 22:00 11/16/21 11:12 Sodium Chloride 0.9% 10 Ml Flush Syringe IV 10 ml BID RAMON Administration Sodium Chloride 10 ml 10/29/21 17:04 Sodium Chloride 0.9% 10 Ml Flush Syringe IV PRN PRN LINE FLUSH Spironolactone 25 mg 11/10/21 10:00 11/16/21 11:11 Spironolactone 25 Mg Tab PO 25 mg QDAY RAMON Administration
--- NOTE | 2021-11-16 12:22 | Progress Note ---
Assessment and Plan Acute hypoxemic respiratory failure on MVS Cardiac arrest with ROSC Acute DVT Right pneumothorax Shock (septic +/- cardiogenic) Possible aspiration pneumonia SIERRA Altered mental status/acute encephalopathy Elevated serum transaminases, likely shock liver Metabolic acidosis Obesity Retro-peritoneal Hematoma Leukocytosis Hypokalemia Lactic acidosis - get CXR and address - empiric diuresis (lasix 40 mg IV X 1) - continue BIPAP scheduled qhs with prn daytime use - continue care as below otherwise; - continue to wean supplemental oxygen for target O2 sat's > 90% acutely - aspiration precautions - continue bronchodilators with pulmonary hygiene per RT - continue accuchecks with glycemic control per SSI for target blood glucose < 180 mg/dL - avoid nephrotoxins, renally dose all medications - continue to avoid benzodiazepine's, reduce the possibility of delirium - AB's per ID rec's - prn analgesia per pain score - Maintenance of sleep-wake cycle, avoid delirium - G.I. & VTE prophylaxis - PT/OT/ROM exercises - continue mobility protocols for pressure ulcer prophylaxis - Monitor hemodynamics closely - continue other care per attending / other consultants - discharge planning ongoing concurrently COVID SPECIFIC INTERVENTIONS - COVID-19 PCR negative .... Re-evaluate in am & prn Subjective Date of service: 11/16/21 Principal diagnosis: AHRF; Cardiac arrest; R. pneumothorax; pneumonia; AMS; DVT's; SIERRA; Obesity Interval history: Patient is seen today for: Acute hypoxemic respiratory failure; Cardiac arrest with ROSC; Right pneumothorax; pneumonia; AMS; bilateral DVT's; SIERRA; Obesity Seen and examined at bedside; 24hour events reviewed; nursing and respiratory care staff consulted; no adverse overnight events reported to me; resting in bed; complains of feeling cold; work of breathing slightly increased but denies SOB; No N/V/F/C Objective Vital Signs - 12hr 11/16/21 11/16/21 11/16/21 01:00 02:00 03:00 Temperature Pulse Rate 104 H 85 79 Pulse Rate [ 85 From Monitor] Respiratory 40 H 11 L 38 H Rate Blood Pressure 158/88 158/88 165/87 O2 Sat by Pulse 96 99 100 Oximetry 11/16/21 11/16/21 11/16/21 03:50 04:00 04:30 Temperature 98.9 F Pulse Rate 78 78 83 Pulse Rate [ From Monitor] Respiratory 34 H 35 H Rate Blood Pressure 175/91 175/91 O2 Sat by Pulse 99 100 Oximetry 11/16/21 11/16/21 11/16/21 05:00 06:00 07:00 Temperature Pulse Rate 82 80 80 Pulse Rate [ From Monitor] Respiratory 14 32 H 17 Rate Blood Pressure 161/88 169/89 169/89 O2 Sat by Pulse 100 98 97 Oximetry 11/16/21 11/16/21 11/16/21 07:22 09:59 11:11 Temperature 98.7 F Pulse Rate 86 Pulse Rate [ From Monitor] Respiratory Rate Blood Pressure 175/93 O2 Sat by Pulse 97 Oximetry 11/16/21 11:46 Temperature 98.5 F Pulse Rate Pulse Rate [ From Monitor] Respiratory Rate Blood Pressure O2 Sat by Pulse Oximetry Constitutional: appears uncomfortable, other (elderly obese female with mildly increased respiratory effort at rest on BIPAP) Eyes: non-icteric, other (+ mild periorbital phymosis) ENT: oropharynx moist Neck: supple, no lymphadenopathy, no JVD, other (large circumference) Effort: mildly labored Ascultation: Bilateral: diminished breath sounds, rhonchi (scattered) Percussion: Bilateral: not dull Cardiovascular: irregular rhythm, other (no R/M) Gastrointestinal: normoactive bowel sounds, soft, non-tender, other (obese) Integumentary: normal, other (Left flank ecchymosis with induration) Extremities: no cyanosis, pulses normal, no ischemia or petechiae, edema (2+) Neurologic: normal mental status, non-focal exam (grossly), pupils equal and round, motor strength normal and (weak) Psychiatric: mood appropriate, affect normal CBC and BMP: 11/16/21 05:11 11/17/21 04:33 ABG, PT/INR, D-dimer: ABG ABG pH 7.475 pH Units (7.350-7.450) H 11/11/21 13:53 ABG pCO2 45.0 mm Hg 11/11/21 13:53 ABG pO2 64.1 mm Hg (80.0-90.0) L 11/11/21 13:53 ABG O2 Saturation 96.3 % (95.0-99.0) 11/11/21 13:53 PT/INR, D-dimer PT 17.2 Sec. (12.2-14.9) H 10/30/21 16:30 INR 1.27 (0.87-1.13) H 10/30/21 16:30 D-Dimer > 94028 ng/mlDDU (0-234) H 10/30/21 Unknown Abnormal lab findings: Abnormal Labs 10/29/21 10/29/21 10/29/21 15:10 15:10 15:10 WBC 27.8 H RBC Hgb Hct MCH 27 L RDW Plt Count Lymph % (Auto) Humphreys % (Auto) Lymph # (Auto) Humph[place]ys # (Auto) Seg Neutrophils % Seg Neuts % (Manual) 78.0 H Lymphocytes % (Manual) 10.0 L Nucleated RBC % Seg Neutrophils # Seg Neutrophils # Man 21.7 H Monocytes # (Manual) 1.4 H PT INR APTT D-Dimer Heparin Anti-Xa Level ABG pH ABG pO2 ABG HCO3 ABG O2 Saturation ABG Base Excess ABG Hemoglobin Oxyhemoglobin Sodium Potassium Chloride Carbon Dioxide BUN Creatinine Glucose POC Glucose Hemoglobin A1c Lactic Acid 6.80 H* Calcium Phosphorus Magnesium Ferritin AST ALT Alkaline Phosphatase Lactate Dehydrogenase Troponin T 0.089 H C-Reactive Protein Total Protein Albumin LDL Cholesterol Direct Urine Creatinine Urine Total Protein Salicylates Acetaminophen Crossmatch 10/29/21 10/29/21 10/29/21 15:10 15:10 15:10 WBC RBC Hgb Hct MCH RDW Plt Count Lymph % (Auto) [place]ys % (Auto) Lymph # (Auto) [place] # (Auto) Seg Neutrophils % Seg Neuts % (Manual) Lymphocytes % (Manual) Nucleated RBC % Seg Neutrophils # Seg Neutrophils # Man Monocytes # (Manual) PT INR APTT D-Dimer Heparin Anti-Xa Level ABG pH ABG pO2 ABG HCO3 ABG O2 Saturation ABG Base Excess ABG Hemoglobin Oxyhemoglobin Sodium 136 L Potassium 2.8 L* Chloride 93.4 L Carbon Dioxide 20 L BUN Creatinine Glucose 330 H POC Glucose Hemoglobin A1c Lactic Acid Calcium Phosphorus Magnesium Ferritin AST 1013 H ALT 1289 H Alkaline Phosphatase 246 H Lactate Dehydrogenase Troponin T C-Reactive Protein Total Protein Albumin LDL Cholesterol Direct Urine Creatinine Urine Total Protein Salicylates < 0.3 L Acetaminophen 5.0 L Crossmatch 10/29/21 10/29/21 10/29/21 15:11 16:01 19:29 WBC RBC Hgb Hct MCH RDW Plt Count Lymph % (Auto) [place]ys % (Auto) Lymph # (Auto) [place] # (Auto) Seg Neutrophils % Seg Neuts % (Manual) Lymphocytes % (Manual) Nucleated RBC % Seg Neutrophils # Seg Neutrophils # Man Monocytes # (Manual) PT INR APTT D-Dimer Heparin Anti-Xa Level ABG pH 7.307 L ABG pO2 64.1 L ABG HCO3 ABG O2 Saturation 90.8 L ABG Base Excess -2.9 L ABG Hemoglobin Oxyhemoglobin 89.3 L Sodium Potassium Chloride Carbon Dioxide BUN Creatinine Glucose POC Glucose Hemoglobin A1c Lactic Acid 2.60 H* Calcium Phosphorus Magnesium 2.90 H Ferritin AST ALT Alkaline Phosphatase Lactate Dehydrogenase Troponin T C-Reactive Protein Total Protein Albumin LDL Cholesterol Direct Urine Creatinine Urine Total Protein Salicylates Acetaminophen Crossmatch 10/29/21 10/29/21 10/30/21 19:40 22:34 04:30 WBC 16.2 H RBC Hgb Hct MCH 26 L RDW 15.5 H Plt Count Lymph % (Auto) 6.2 L Humph[place]ys % (Auto) Lymph # (Auto) 1.0 L [place]ys # (Auto) 0.9 H Seg Neutrophils % 88.1 H Seg Neuts % (Manual) Lymphocytes % (Manual) Nucleated RBC % Seg Neutrophils # 14.2 H Seg Neutrophils # Man Monocytes # (Manual) PT INR APTT D-Dimer Heparin Anti-Xa Level ABG pH ABG pO2 ABG HCO3 ABG O2 Saturation ABG Base Excess ABG Hemoglobin Oxyhemoglobin Sodium Potassium Chloride Carbon Dioxide BUN Creatinine Glucose POC Glucose Hemoglobin A1c Lactic Acid Calcium Phosphorus Magnesium Ferritin AST ALT Alkaline Phosphatase Lactate Dehydrogenase Troponin T 1.950 H* D 1.150 H* D C-Reactive Protein Total Protein Albumin LDL Cholesterol Direct 43 L Urine Creatinine Urine Total Protein Salicylates Acetaminophen Crossmatch 10/30/21 10/30/21 10/30/21 04:30 04:35 05:45 WBC RBC Hgb Hct MCH RDW Plt Count Lymph % (Auto) [place] % (Auto) Lymph # (Auto) [place] # (Auto) Seg Neutrophils % Seg Neuts % (Manual) Lymphocytes % (Manual) Nucleated RBC % Seg Neutrophils # Seg Neutrophils # Man Monocytes # (Manual) PT INR APTT D-Dimer Heparin Anti-Xa Level ABG pH ABG pO2 69.5 L ABG HCO3 ABG O2 Saturation ABG Base Excess -2.7 L ABG Hemoglobin Oxyhemoglobin 94.7 L Sodium Potassium Chloride Carbon Dioxide 21 L BUN Creatinine Glucose 159 H POC Glucose 151 H Hemoglobin A1c Lactic Acid Calcium 7.9 L D Phosphorus Magnesium Ferritin AST 461 H ALT 686 H Alkaline Phosphatase 130 H Lactate Dehydrogenase Troponin T C-Reactive Protein Total Protein 5.6 L D Albumin 3.2 L LDL Cholesterol Direct Urine Creatinine Urine Total Protein Salicylates Acetaminophen Crossmatch 10/30/21 10/30/21 10/30/21 11:24 15:59 16:30 WBC RBC Hgb Hct MCH RDW Plt Count Lymph % (Auto) [place] % (Auto) Lymph # (Auto) [place] # (Auto) Seg Neutrophils % Seg Neuts % (Manual) Lymphocytes % (Manual) Nucleated RBC % Seg Neutrophils # Seg Neutrophils # Man Monocytes # (Manual) PT 17.2 H INR 1.27 H APTT 44.4 H D-Dimer Heparin Anti-Xa Level ABG pH ABG pO2 ABG HCO3 ABG O2 Saturation ABG Base Excess ABG Hemoglobin Oxyhemoglobin Sodium Potassium Chloride Carbon Dioxide BUN Creatinine Glucose POC Glucose 153 H 109 H Hemoglobin A1c Lactic Acid Calcium Phosphorus Magnesium Ferritin AST ALT Alkaline Phosphatase Lactate Dehydrogenase Troponin T C-Reactive Protein Total Protein Albumin LDL Cholesterol Direct Urine Creatinine Urine Total Protein Salicylates Acetaminophen Crossmatch 10/30/21 10/30/21 10/30/21 23:00 Unknown Unknown WBC RBC Hgb Hct MCH RDW Plt Count Lymph % (Auto) [place]ys % (Auto) Lymph # (Auto) [place] # (Auto) Seg Neutrophils % Seg Neuts % (Manual) Lymphocytes % (Manual) Nucleated RBC % Seg Neutrophils # Seg Neutrophils # Man Monocytes # (Manual) PT INR APTT D-Dimer > 91192 H Heparin Anti-Xa Level 0.82 H ABG pH ABG pO2 ABG HCO3 ABG O2 Saturation ABG Base Excess ABG Hemoglobin Oxyhemoglobin Sodium Potassium Chloride Carbon Dioxide BUN Creatinine Glucose POC Glucose Hemoglobin A1c Lactic Acid Calcium Phosphorus Magnesium Ferritin 208.4 H AST ALT Alkaline Phosphatase Lactate Dehydrogenase Troponin T C-Reactive Protein Total Protein Albumin LDL Cholesterol Direct Urine Creatinine Urine Total Protein Salicylates Acetaminophen Crossmatch 10/30/21 10/31/21 10/31/21 Unknown 04:30 04:30 WBC 14.4 H RBC Hgb Hct MCH 26 L RDW Plt Count Lymph % (Auto) [place] % (Auto) Lymph # (Auto) [place] # (Auto) Seg Neutrophils % Seg Neuts % (Manual) Lymphocytes % (Manual) Nucleated RBC % Seg Neutrophils # Seg Neutrophils # Man Monocytes # (Manual) PT INR APTT D-Dimer Heparin Anti-Xa Level ABG pH ABG pO2 ABG HCO3 ABG O2 Saturation ABG Base Excess ABG Hemoglobin Oxyhemoglobin Sodium Potassium 3.5 L Chloride 107.5 H Carbon Dioxide 20 L BUN 28 H Creatinine 1.7 H Glucose 113 H POC Glucose Hemoglobin A1c Lactic Acid Calcium 7.9 L Phosphorus Magnesium Ferritin AST ALT Alkaline Phosphatase Lactate Dehydrogenase 469 H Troponin T C-Reactive Protein 13.40 H Total Protein Albumin LDL Cholesterol Direct Urine Creatinine Urine Total Protein Salicylates Acetaminophen Crossmatch 10/31/21 10/31/21 10/31/21 04:30 05:11 15:30 WBC RBC Hgb Hct MCH RDW Plt Count Lymph % (Auto) [place] % (Auto) Lymph # (Auto) [place] # (Auto) Seg Neutrophils % Seg Neuts % (Manual) Lymphocytes % (Manual) Nucleated RBC % Seg Neutrophils # Seg Neutrophils # Man Monocytes # (Manual) PT INR APTT D-Dimer Heparin Anti-Xa Level ABG pH 7.222 L ABG pO2 61.5 L ABG HCO3 ABG O2 Saturation 86.2 L ABG Base Excess -6.3 L ABG Hemoglobin 11.2 L Oxyhemoglobin 84.5 L Sodium Potassium Chloride Carbon Dioxide BUN Creatinine Glucose POC Glucose 106 H Hemoglobin A1c 6.7 H Lactic Acid Calcium Phosphorus Magnesium Ferritin AST ALT Alkaline Phosphatase Lactate Dehydrogenase Troponin T C-Reactive Protein Total Protein Albumin LDL Cholesterol Direct Urine Creatinine Urine Total Protein Salicylates Acetaminophen Crossmatch 10/31/21 10/31/21 10/31/21 16:07 16:35 17:45 WBC RBC Hgb Hct MCH RDW Plt Count Lymph % (Auto) [place] % (Auto) Lymph # (Auto) [place] # (Auto) Seg Neutrophils % Seg Neuts % (Manual) Lymphocytes % (Manual) Nucleated RBC % Seg Neutrophils # Seg Neutrophils # Man Monocytes # (Manual) PT INR APTT D-Dimer Heparin Anti-Xa Level ABG pH 7.267 L ABG pO2 58.3 L ABG HCO3 ABG O2 Saturation 88.3 L ABG Base Excess -5.9 L ABG Hemoglobin 10.1 L Oxyhemoglobin 86.5 L Sodium Potassium Chloride Carbon Dioxide BUN Creatinine Glucose POC Glucose 115 H Hemoglobin A1c Lactic Acid Calcium Phosphorus Magnesium Ferritin AST ALT Alkaline Phosphatase Lactate Dehydrogenase Troponin T C-Reactive Protein Total Protein Albumin LDL Cholesterol Direct Urine Creatinine 383.6 H Urine Total Protein Salicylates Acetaminophen Crossmatch 11/01/21 11/01/21 11/01/21 00:06 05:08 06:00 WBC 12.6 H RBC 3.43 L Hgb 8.9 L Hct 28.7 L MCH 26 L RDW 15.7 H Plt Count 130 L Lymph % (Auto) [place]ys % (Auto) Lymph # (Auto) [place] # (Auto) Seg Neutrophils % Seg Neuts % (Manual) Lymphocytes % (Manual) Nucleated RBC % Seg Neutrophils # Seg Neutrophils # Man Monocytes # (Manual) PT INR APTT D-Dimer Heparin Anti-Xa Level ABG pH ABG pO2 ABG HCO3 ABG O2 Saturation ABG Base Excess ABG Hemoglobin Oxyhemoglobin Sodium Potassium Chloride Carbon Dioxide BUN Creatinine Glucose POC Glucose 114 H 120 H Hemoglobin A1c Lactic Acid Calcium Phosphorus Magnesium Ferritin AST ALT Alkaline Phosphatase Lactate Dehydrogenase Troponin T C-Reactive Protein Total Protein Albumin LDL Cholesterol Direct Urine Creatinine Urine Total Protein Salicylates Acetaminophen Crossmatch 11/01/21 11/01/21 11/01/21 06:00 11:43 14:00 WBC RBC Hgb Hct MCH RDW Plt Count Lymph % (Auto) [place] % (Auto) Lymph # (Auto) [place] # (Auto) Seg Neutrophils % Seg Neuts % (Manual) Lymphocytes % (Manual) Nucleated RBC % Seg Neutrophils # Seg Neutrophils # Man Monocytes # (Manual) PT INR APTT D-Dimer Heparin Anti-Xa Level ABG pH 7.349 L ABG pO2 75.6 L ABG HCO3 ABG O2 Saturation ABG Base Excess -3.9 L ABG Hemoglobin 9.8 L Oxyhemoglobin 93.5 L Sodium Potassium Chloride 114.1 H Carbon Dioxide 20 L BUN 33 H Creatinine Glucose 131 H POC Glucose 151 H Hemoglobin A1c Lactic Acid Calcium 7.7 L Phosphorus Magnesium Ferritin AST 79 H ALT 259 H Alkaline Phosphatase Lactate Dehydrogenase Troponin T C-Reactive Protein Total Protein 5.5 L Albumin 2.7 L LDL Cholesterol Direct Urine Creatinine Urine Total Protein Salicylates Acetaminophen Crossmatch 11/01/21 11/01/21 11/02/21 16:45 22:55 05:12 WBC RBC Hgb Hct MCH RDW Plt Count Lymph % (Auto) [place] % (Auto) Lymph # (Auto) [place] # (Auto) Seg Neutrophils % Seg Neuts % (Manual) Lymphocytes % (Manual) Nucleated RBC % Seg Neutrophils # Seg Neutrophils # Man Monocytes # (Manual) PT INR APTT D-Dimer Heparin Anti-Xa Level ABG pH ABG pO2 ABG HCO3 ABG O2 Saturation ABG Base Excess ABG Hemoglobin Oxyhemoglobin Sodium Potassium Chloride Carbon Dioxide BUN Creatinine Glucose POC Glucose 119 H 129 H 140 H Hemoglobin A1c Lactic Acid Calcium Phosphorus Magnesium Ferritin AST ALT Alkaline Phosphatase Lactate Dehydrogenase Troponin T C-Reactive Protein Total Protein Albumin LDL Cholesterol Direct Urine Creatinine Urine Total Protein Salicylates Acetaminophen Crossmatch 11/02/21 11/02/21 11/02/21 05:35 05:35 09:35 WBC 13.5 H RBC 3.60 L Hgb 9.7 L Hct MCH 27 L RDW 15.7 H Plt Count Lymph % (Auto) [place] % (Auto) Lymph # (Auto) [place] # (Auto) Seg Neutrophils % Seg Neuts % (Manual) Lymphocytes % (Manual) Nucleated RBC % Seg Neutrophils # Seg Neutrophils # Man Monocytes # (Manual) PT INR APTT D-Dimer Heparin Anti-Xa Level ABG pH 7.208 L ABG pO2 75.9 L ABG HCO3 ABG O2 Saturation 93.6 L ABG Base Excess -4.3 L ABG Hemoglobin 9.1 L Oxyhemoglobin 91.6 L Sodium Potassium 5.2 H D Chloride 112.6 H Carbon Dioxide BUN 32 H Creatinine Glucose 152 H POC Glucose Hemoglobin A1c Lactic Acid Calcium 8.2 L Phosphorus Magnesium 2.70 H Ferritin AST ALT Alkaline Phosphatase Lactate Dehydrogenase Troponin T C-Reactive Protein Total Protein Albumin LDL Cholesterol Direct Urine Creatinine Urine Total Protein Salicylates Acetaminophen Crossmatch 11/02/21 11/02/21 11/02/21 11:44 17:13 23:43 WBC RBC Hgb Hct MCH RDW Plt Count Lymph % (Auto) [place] % (Auto) Lymph # (Auto) [place] # (Auto) Seg Neutrophils % Seg Neuts % (Manual) Lymphocytes % (Manual) Nucleated RBC % Seg Neutrophils # Seg Neutrophils # Man Monocytes # (Manual) PT INR APTT D-Dimer Heparin Anti-Xa Level ABG pH ABG pO2 ABG HCO3 ABG O2 Saturation ABG Base Excess ABG Hemoglobin Oxyhemoglobin Sodium Potassium Chloride Carbon Dioxide BUN Creatinine Glucose POC Glucose 173 H 148 H 137 H Hemoglobin A1c Lactic Acid Calcium Phosphorus Magnesium Ferritin AST ALT Alkaline Phosphatase Lactate Dehydrogenase Troponin T C-Reactive Protein Total Protein Albumin LDL Cholesterol Direct Urine Creatinine Urine Total Protein Salicylates Acetaminophen Crossmatch 11/03/21 11/03/21 11/03/21 04:59 06:00 06:00 WBC RBC 3.43 L Hgb 9.1 L Hct 29.0 L MCH 26 L RDW 16.4 H Plt Count Lymph % (Auto) [place] % (Auto) Lymph # (Auto) [place] # (Auto) Seg Neutrophils % Seg Neuts % (Manual) Lymphocytes % (Manual) Nucleated RBC % Seg Neutrophils # Seg Neutrophils # Man Monocytes # (Manual) PT INR APTT D-Dimer Heparin Anti-Xa Level 0.17 L ABG pH ABG pO2 ABG HCO3 ABG O2 Saturation ABG Base Excess ABG Hemoglobin Oxyhemoglobin Sodium Potassium Chloride Carbon Dioxide BUN Creatinine Glucose POC Glucose 167 H Hemoglobin A1c Lactic Acid Calcium Phosphorus Magnesium Ferritin AST ALT Alkaline Phosphatase Lactate Dehydrogenase Troponin T C-Reactive Protein Total Protein Albumin LDL Cholesterol Direct Urine Creatinine Urine Total Protein Salicylates Acetaminophen Crossmatch 11/03/21 11/03/21 11/03/21 06:00 09:20 11:58 WBC RBC Hgb Hct MCH RDW Plt Count Lymph % (Auto) [place] % (Auto) Lymph # (Auto) [place] # (Auto) Seg Neutrophils % Seg Neuts % (Manual) Lymphocytes % (Manual) Nucleated RBC % Seg Neutrophils # Seg Neutrophils # Man Monocytes # (Manual) PT INR APTT D-Dimer Heparin Anti-Xa Level ABG pH 7.274 L ABG pO2 75.6 L ABG HCO3 ABG O2 Saturation 94.9 L ABG Base Excess -2.5 L ABG Hemoglobin 9.3 L Oxyhemoglobin 92.9 L Sodium 149 H Potassium Chloride 117.5 H Carbon Dioxide BUN 32 H Creatinine Glucose 173 H POC Glucose 192 H Hemoglobin A1c Lactic Acid Calcium 8.1 L Phosphorus Magnesium Ferritin AST ALT Alkaline Phosphatase Lactate Dehydrogenase Troponin T C-Reactive Protein Total Protein Albumin LDL Cholesterol Direct Urine Creatinine Urine Total Protein Salicylates Acetaminophen Crossmatch 11/03/21 11/03/21 11/04/21 18:22 Unknown 00:09 WBC RBC Hgb Hct MCH RDW Plt Count Lymph % (Auto) [place] % (Auto) Lymph # (Auto) [place] # (Auto) Seg Neutrophils % Seg Neuts % (Manual) Lymphocytes % (Manual) Nucleated RBC % Seg Neutrophils # Seg Neutrophils # Man Monocytes # (Manual) PT INR APTT D-Dimer Heparin Anti-Xa Level 0.29 L ABG pH ABG pO2 ABG HCO3 ABG O2 Saturation ABG Base Excess ABG Hemoglobin Oxyhemoglobin Sodium Potassium Chloride Carbon Dioxide BUN Creatinine Glucose POC Glucose 178 H 221 H Hemoglobin A1c Lactic Acid Calcium Phosphorus Magnesium Ferritin AST ALT Alkaline Phosphatase Lactate Dehydrogenase Troponin T C-Reactive Protein Total Protein Albumin LDL Cholesterol Direct Urine Creatinine Urine Total Protein Salicylates Acetaminophen Crossmatch 11/04/21 11/04/21 11/04/21 05:09 09:40 09:40 WBC 16.8 H RBC Hgb Hct MCH 27 L RDW 16.5 H Plt Count Lymph % (Auto) [place] % (Auto) Lymph # (Auto) [place] # (Auto) Seg Neutrophils % Seg Neuts % (Manual) Lymphocytes % (Manual) Nucleated RBC % Seg Neutrophils # Seg Neutrophils # Man Monocytes # (Manual) PT INR APTT D-Dimer Heparin Anti-Xa Level ABG pH ABG pO2 ABG HCO3 ABG O2 Saturation ABG Base Excess ABG Hemoglobin Oxyhemoglobin Sodium Potassium 5.9 H Chloride 108.5 H Carbon Dioxide BUN 54 H Creatinine 1.8 H Glucose 198 H POC Glucose 182 H Hemoglobin A1c Lactic Acid Calcium Phosphorus Magnesium 3.00 H Ferritin AST ALT Alkaline Phosphatase Lactate Dehydrogenase Troponin T C-Reactive Protein Total Protein Albumin LDL Cholesterol Direct Urine Creatinine Urine Total Protein Salicylates Acetaminophen Crossmatch 11/04/21 11/04/21 11/04/21 12:13 13:34 14:05 WBC RBC Hgb Hct MCH RDW Plt Count Lymph % (Auto) [place] % (Auto) Lymph # (Auto) [place] # (Auto) Seg Neutrophils % Seg Neuts % (Manual) Lymphocytes % (Manual) Nucleated RBC % Seg Neutrophils # Seg Neutrophils # Man Monocytes # (Manual) PT INR APTT D-Dimer Heparin Anti-Xa Level ABG pH 7.223 L ABG pO2 71.3 L ABG HCO3 ABG O2 Saturation 92.8 L ABG Base Excess ABG Hemoglobin 8.2 L Oxyhemoglobin 91.0 L Sodium Potassium Chloride Carbon Dioxide BUN Creatinine Glucose POC Glucose 184 H Hemoglobin A1c Lactic Acid Calcium Phosphorus Magnesium Ferritin AST ALT Alkaline Phosphatase Lactate Dehydrogenase Troponin T C-Reactive Protein Total Protein Albumin LDL Cholesterol Direct Urine Creatinine 184.6 H Urine Total Protein Salicylates Acetaminophen Crossmatch 11/04/21 11/04/21 11/05/21 18:02 Unknown 00:07 WBC RBC Hgb Hct MCH RDW Plt Count Lymph % (Auto) [place] % (Auto) Lymph # (Auto) [place] # (Auto) Seg Neutrophils % Seg Neuts % (Manual) Lymphocytes % (Manual) Nucleated RBC % Seg Neutrophils # Seg Neutrophils # Man Monocytes # (Manual) PT INR APTT D-Dimer Heparin Anti-Xa Level ABG pH ABG pO2 ABG HCO3 ABG O2 Saturation ABG Base Excess ABG Hemoglobin Oxyhemoglobin Sodium Potassium Chloride Carbon Dioxide BUN Creatinine Glucose POC Glucose 262 H 259 H Hemoglobin A1c Lactic Acid Calcium Phosphorus Magnesium Ferritin AST ALT Alkaline Phosphatase Lactate Dehydrogenase Troponin T C-Reactive Protein Total Protein Albumin LDL Cholesterol Direct Urine Creatinine 190.9 H Urine Total Protein 172 H Salicylates Acetaminophen Crossmatch 11/05/21 11/05/21 11/05/21 04:20 04:20 05:30 WBC 17.9 H RBC 3.64 L Hgb 9.7 L Hct MCH 27 L RDW 16.4 H Plt Count Lymph % (Auto) [place] % (Auto) Lymph # (Auto) [place] # (Auto) Seg Neutrophils % Seg Neuts % (Manual) Lymphocytes % (Manual) Nucleated RBC % Seg Neutrophils # Seg Neutrophils # Man Monocytes # (Manual) PT INR APTT D-Dimer Heparin Anti-Xa Level ABG pH ABG pO2 ABG HCO3 ABG O2 Saturation ABG Base Excess ABG Hemoglobin Oxyhemoglobin Sodium Potassium 5.6 H Chloride 108.4 H Carbon Dioxide BUN 71 H Creatinine 1.9 H Glucose 270 H POC Glucose 283 H Hemoglobin A1c Lactic Acid Calcium Phosphorus Magnesium Ferritin AST ALT Alkaline Phosphatase Lactate Dehydrogenase Troponin T C-Reactive Protein Total Protein Albumin LDL Cholesterol Direct Urine Creatinine Urine Total Protein Salicylates Acetaminophen Crossmatch 11/05/21 11/05/21 11/05/21 10:05 12:10 15:29 WBC RBC Hgb Hct MCH RDW Plt Count Lymph % (Auto) [place] % (Auto) Lymph # (Auto) [place] # (Auto) Seg Neutrophils % Seg Neuts % (Manual) Lymphocytes % (Manual) Nucleated RBC % Seg Neutrophils # Seg Neutrophils # Man Monocytes # (Manual) PT INR APTT D-Dimer Heparin Anti-Xa Level ABG pH 7.248 L ABG pO2 73.7 L ABG HCO3 26.2 H ABG O2 Saturation 93.1 L ABG Base Excess ABG Hemoglobin 8.9 L Oxyhemoglobin 91.4 L Sodium Potassium Chloride Carbon Dioxide BUN Creatinine Glucose POC Glucose 225 H 199 H Hemoglobin A1c Lactic Acid Calcium Phosphorus Magnesium Ferritin AST ALT Alkaline Phosphatase Lactate Dehydrogenase Troponin T C-Reactive Protein Total Protein Albumin LDL Cholesterol Direct Urine Creatinine Urine Total Protein Salicylates Acetaminophen Crossmatch 11/05/21 11/05/21 11/05/21 15:51 17:32 17:40 WBC RBC Hgb Hct MCH RDW Plt Count Lymph % (Auto) [place] % (Auto) Lymph # (Auto) [place] # (Auto) Seg Neutrophils % Seg Neuts % (Manual) Lymphocytes % (Manual) Nucleated RBC % Seg Neutrophils # Seg Neutrophils # Man Monocytes # (Manual) PT INR APTT D-Dimer Heparin Anti-Xa Level ABG pH ABG pO2 ABG HCO3 ABG O2 Saturation ABG Base Excess ABG Hemoglobin Oxyhemoglobin Sodium Potassium 5.2 H Chloride 107.8 H Carbon Dioxide BUN 79 H Creatinine 1.9 H Glucose 204 H POC Glucose 278 H 197 H Hemoglobin A1c Lactic Acid Calcium Phosphorus Magnesium Ferritin AST ALT Alkaline Phosphatase Lactate Dehydrogenase Troponin T C-Reactive Protein Total Protein Albumin LDL Cholesterol Direct Urine Creatinine Urine Total Protein Salicylates Acetaminophen Crossmatch 11/05/21 11/05/21 11/05/21 21:25 22:22 23:43 WBC RBC Hgb Hct MCH RDW Plt Count Lymph % (Auto) [place] % (Auto) Lymph # (Auto) [place] # (Auto) Seg Neutrophils % Seg Neuts % (Manual) Lymphocytes % (Manual) Nucleated RBC % Seg Neutrophils # Seg Neutrophils # Man Monocytes # (Manual) PT INR APTT D-Dimer Heparin Anti-Xa Level ABG pH ABG pO2 ABG HCO3 ABG O2 Saturation ABG Base Excess ABG Hemoglobin Oxyhemoglobin Sodium Potassium 5.3 H Chloride 109.2 H Carbon Dioxide BUN 81 H Creatinine 2.0 H Glucose 195 H POC Glucose 180 H 203 H Hemoglobin A1c Lactic Acid Calcium Phosphorus Magnesium Ferritin AST ALT Alkaline Phosphatase Lactate Dehydrogenase Troponin T C-Reactive Protein Total Protein Albumin LDL Cholesterol Direct Urine Creatinine Urine Total Protein Salicylates Acetaminophen Crossmatch 11/05/21 11/06/21 11/06/21 Unknown 02:35 05:09 WBC RBC Hgb Hct MCH RDW Plt Count Lymph % (Auto) [place] % (Auto) Lymph # (Auto) [place] # (Auto) Seg Neutrophils % Seg Neuts % (Manual) Lymphocytes % (Manual) Nucleated RBC % Seg Neutrophils # Seg Neutrophils # Man Monocytes # (Manual) PT INR APTT D-Dimer Heparin Anti-Xa Level ABG pH ABG pO2 ABG HCO3 ABG O2 Saturation ABG Base Excess ABG Hemoglobin Oxyhemoglobin Sodium 146 H Potassium 6.0 H Chloride 108.1 H 107.1 H Carbon Dioxide 21 L BUN 80 H 84 H Creatinine 2.0 H 2.0 H Glucose 238 H 235 H POC Glucose 215 H Hemoglobin A1c Lactic Acid Calcium Phosphorus Magnesium 2.80 H Ferritin AST ALT 77 H Alkaline Phosphatase Lactate Dehydrogenase Troponin T C-Reactive Protein Total Protein Albumin 3.0 L LDL Cholesterol Direct Urine Creatinine Urine Total Protein Salicylates Acetaminophen Crossmatch 11/06/21 11/06/21 11/06/21 05:40 08:07 08:07 WBC RBC Hgb Hct MCH RDW Plt Count Lymph % (Auto) [place] % (Auto) Lymph # (Auto) [place] # (Auto) Seg Neutrophils % Seg Neuts % (Manual) Lymphocytes % (Manual) Nucleated RBC % Seg Neutrophils # Seg Neutrophils # Man Monocytes # (Manual) PT INR APTT D-Dimer Heparin Anti-Xa Level 1.24 H ABG pH 7.311 L ABG pO2 72.8 L ABG HCO3 29.7 H ABG O2 Saturation 94.1 L ABG Base Excess ABG Hemoglobin 11.4 L Oxyhemoglobin 92.3 L Sodium Potassium 5.2 H Chloride Carbon Dioxide BUN 85 H Creatinine 2.3 H Glucose 236 H POC Glucose Hemoglobin A1c Lactic Acid Calcium Phosphorus Magnesium Ferritin AST ALT Alkaline Phosphatase Lactate Dehydrogenase Troponin T C-Reactive Protein Total Protein Albumin LDL Cholesterol Direct Urine Creatinine Urine Total Protein Salicylates Acetaminophen Crossmatch 11/06/21 11/06/21 11/06/21 12:14 12:57 14:28 WBC RBC Hgb Hct MCH RDW Plt Count Lymph % (Auto) [place] % (Auto) Lymph # (Auto) [place] # (Auto) Seg Neutrophils % Seg Neuts % (Manual) Lymphocytes % (Manual) Nucleated RBC % Seg Neutrophils # Seg Neutrophils # Man Monocytes # (Manual) PT INR APTT D-Dimer Heparin Anti-Xa Level ABG pH 7.282 L ABG pO2 72.6 L ABG HCO3 30.8 H ABG O2 Saturation 93.7 L ABG Base Excess 3.2 H ABG Hemoglobin 8.6 L Oxyhemoglobin 91.8 L Sodium Potassium Chloride Carbon Dioxide BUN 91 H Creatinine 2.6 H Glucose 259 H POC Glucose 225 H Hemoglobin A1c Lactic Acid Calcium Phosphorus Magnesium Ferritin AST ALT Alkaline Phosphatase Lactate Dehydrogenase Troponin T C-Reactive Protein Total Protein Albumin LDL Cholesterol Direct Urine Creatinine Urine Total Protein Salicylates Acetaminophen Crossmatch 11/06/21 11/06/21 11/06/21 17:28 19:20 21:30 WBC RBC Hgb Hct MCH RDW Plt Count Lymph % (Auto) [place] % (Auto) Lymph # (Auto) [place] # (Auto) Seg Neutrophils % Seg Neuts % (Manual) Lymphocytes % (Manual) Nucleated RBC % Seg Neutrophils # Seg Neutrophils # Man Monocytes # (Manual) PT INR APTT D-Dimer Heparin Anti-Xa Level 0.73 H ABG pH ABG pO2 ABG HCO3 ABG O2 Saturation ABG Base Excess ABG Hemoglobin Oxyhemoglobin Sodium Potassium Chloride Carbon Dioxide BUN 95 H Creatinine 2.9 H Glucose 233 H POC Glucose 206 H Hemoglobin A1c Lactic Acid Calcium Phosphorus Magnesium Ferritin AST ALT Alkaline Phosphatase Lactate Dehydrogenase Troponin T C-Reactive Protein Total Protein Albumin LDL Cholesterol Direct Urine Creatinine Urine Total Protein Salicylates Acetaminophen Crossmatch 11/06/21 11/07/21 11/07/21 22:56 05:06 06:30 WBC RBC Hgb Hct MCH RDW Plt Count Lymph % (Auto) [place] % (Auto) Lymph # (Auto) [place] # (Auto) Seg Neutrophils % Seg Neuts % (Manual) Lymphocytes % (Manual) Nucleated RBC % Seg Neutrophils # Seg Neutrophils # Man Monocytes # (Manual) PT INR APTT D-Dimer Heparin Anti-Xa Level ABG pH ABG pO2 ABG HCO3 ABG O2 Saturation ABG Base Excess ABG Hemoglobin Oxyhemoglobin Sodium 146 H Potassium Chloride Carbon Dioxide BUN 98 H Creatinine 2.8 H Glucose 202 H POC Glucose 215 H 172 H Hemoglobin A1c Lactic Acid Calcium Phosphorus 4.90 H D Magnesium 2.90 H Ferritin AST ALT Alkaline Phosphatase Lactate Dehydrogenase Troponin T C-Reactive Protein Total Protein Albumin LDL Cholesterol Direct Urine Creatinine Urine Total Protein Salicylates Acetaminophen Crossmatch 11/07/21 11/07/21 11/07/21 06:30 11:26 12:15 WBC 16.0 H RBC 3.06 L Hgb 8.2 L Hct 26.1 L MCH 27 L RDW 16.2 H Plt Count Lymph % (Auto) [place] % (Auto) Lymph # (Auto) [place] # (Auto) Seg Neutrophils % Seg Neuts % (Manual) 77.0 H Lymphocytes % (Manual) 11.0 L Nucleated RBC % 2.0 H Seg Neutrophils # Seg Neutrophils # Man 12.3 H Monocytes # (Manual) PT INR APTT D-Dimer Heparin Anti-Xa Level ABG pH 7.298 L ABG pO2 73.0 L ABG HCO3 33.3 H ABG O2 Saturation 94.4 L ABG Base Excess 5.8 H ABG Hemoglobin 8.2 L Oxyhemoglobin 92.7 L Sodium Potassium Chloride Carbon Dioxide BUN Creatinine Glucose POC Glucose 179 H Hemoglobin A1c Lactic Acid Calcium Phosphorus Magnesium Ferritin AST ALT Alkaline Phosphatase Lactate Dehydrogenase Troponin T C-Reactive Protein Total Protein Albumin LDL Cholesterol Direct Urine Creatinine Urine Total Protein Salicylates Acetaminophen Crossmatch 11/07/21 11/07/21 11/07/21 17:57 22:16 23:49 WBC RBC Hgb Hct MCH RDW Plt Count Lymph % (Auto) [place] % (Auto) Lymph # (Auto) [place] # (Auto) Seg Neutrophils % Seg Neuts % (Manual) Lymphocytes % (Manual) Nucleated RBC % Seg Neutrophils # Seg Neutrophils # Man Monocytes # (Manual) PT INR APTT D-Dimer Heparin Anti-Xa Level ABG pH ABG pO2 ABG HCO3 ABG O2 Saturation ABG Base Excess ABG Hemoglobin Oxyhemoglobin Sodium Potassium Chloride Carbon Dioxide BUN Creatinine Glucose POC Glucose 166 H 223 H 190 H Hemoglobin A1c Lactic Acid Calcium Phosphorus Magnesium Ferritin AST ALT Alkaline Phosphatase Lactate Dehydrogenase Troponin T C-Reactive Protein Total Protein Albumin LDL Cholesterol Direct Urine Creatinine Urine Total Protein Salicylates Acetaminophen Crossmatch 11/08/21 11/08/21 11/08/21 04:20 04:20 06:16 WBC 22.1 H RBC 3.01 L Hgb 8.1 L Hct 25.6 L MCH 27 L RDW 15.4 H Plt Count Lymph % (Auto) [place] % (Auto) Lymph # (Auto) [place] # (Auto) Seg Neutrophils % Seg Neuts % (Manual) Lymphocytes % (Manual) Nucleated RBC % Seg Neutrophils # Seg Neutrophils # Man Monocytes # (Manual) PT INR APTT D-Dimer Heparin Anti-Xa Level ABG pH ABG pO2 ABG HCO3 ABG O2 Saturation ABG Base Excess ABG Hemoglobin Oxyhemoglobin Sodium 151 H Potassium 3.1 L D Chloride 107.3 H Carbon Dioxide 31 H BUN 82 H Creatinine 1.8 H Glucose 232 H POC Glucose 198 H Hemoglobin A1c Lactic Acid Calcium 8.1 L Phosphorus Magnesium Ferritin AST ALT Alkaline Phosphatase Lactate Dehydrogenase Troponin T C-Reactive Protein Total Protein Albumin LDL Cholesterol Direct Urine Creatinine Urine Total Protein Salicylates Acetaminophen Crossmatch 11/08/21 11/08/21 11/08/21 11:38 12:00 18:29 WBC RBC Hgb Hct MCH RDW Plt Count Lymph % (Auto) [place] % (Auto) Lymph # (Auto) [place] # (Auto) Seg Neutrophils % Seg Neuts % (Manual) Lymphocytes % (Manual) Nucleated RBC % Seg Neutrophils # Seg Neutrophils # Man Monocytes # (Manual) PT INR APTT D-Dimer Heparin Anti-Xa Level ABG pH ABG pO2 ABG HCO3 ABG O2 Saturation ABG Base Excess ABG Hemoglobin Oxyhemoglobin Sodium Potassium 3.0 L Chloride Carbon Dioxide BUN Creatinine Glucose POC Glucose 190 H 211 H Hemoglobin A1c Lactic Acid Calcium Phosphorus Magnesium Ferritin AST ALT Alkaline Phosphatase Lactate Dehydrogenase Troponin T C-Reactive Protein Total Protein Albumin LDL Cholesterol Direct Urine Creatinine Urine Total Protein Salicylates Acetaminophen Crossmatch 11/08/21 11/08/21 11/09/21 21:34 21:40 00:36 WBC RBC Hgb Hct MCH RDW Plt Count Lymph % (Auto) [place] % (Auto) Lymph # (Auto) [place] # (Auto) Seg Neutrophils % Seg Neuts % (Manual) Lymphocytes % (Manual) Nucleated RBC % Seg Neutrophils # Seg Neutrophils # Man Monocytes # (Manual) PT INR APTT D-Dimer Heparin Anti-Xa Level ABG pH ABG pO2 ABG HCO3 ABG O2 Saturation ABG Base Excess ABG Hemoglobin Oxyhemoglobin Sodium 148 H Potassium 2.8 L* Chloride Carbon Dioxide 31 H BUN 68 H Creatinine 1.5 H Glucose 191 H POC Glucose 194 H 140 H Hemoglobin A1c Lactic Acid Calcium 8.2 L Phosphorus Magnesium Ferritin AST ALT Alkaline Phosphatase Lactate Dehydrogenase Troponin T C-Reactive Protein Total Protein Albumin LDL Cholesterol Direct Urine Creatinine Urine Total Protein Salicylates Acetaminophen Crossmatch 11/09/21 11/09/21 11/09/21 04:51 04:51 04:51 WBC 27.6 H RBC 3.18 L Hgb 8.4 L Hct 26.6 L MCH 27 L RDW 15.3 H Plt Count Lymph % (Auto) [place] % (Auto) Lymph # (Auto) [place] # (Auto) Seg Neutrophils % Seg Neuts % (Manual) Lymphocytes % (Manual) Nucleated RBC % Seg Neutrophils # Seg Neutrophils # Man Monocytes # (Manual) PT INR APTT D-Dimer Heparin Anti-Xa Level 0.18 L ABG pH ABG pO2 ABG HCO3 ABG O2 Saturation ABG Base Excess ABG Hemoglobin Oxyhemoglobin Sodium 148 H Potassium 2.7 L* Chloride Carbon Dioxide BUN 59 H Creatinine 1.4 H Glucose 143 H POC Glucose Hemoglobin A1c Lactic Acid Calcium 8.3 L Phosphorus Magnesium Ferritin AST ALT Alkaline Phosphatase Lactate Dehydrogenase Troponin T C-Reactive Protein Total Protein Albumin LDL Cholesterol Direct Urine Creatinine Urine Total Protein Salicylates Acetaminophen Crossmatch 11/09/21 11/09/21 11/09/21 05:52 08:45 11:00 WBC RBC Hgb Hct MCH RDW Plt Count Lymph % (Auto) [place] % (Auto) Lymph # (Auto) [place] # (Auto) Seg Neutrophils % Seg Neuts % (Manual) Lymphocytes % (Manual) Nucleated RBC % Seg Neutrophils # Seg Neutrophils # Man Monocytes # (Manual) PT INR APTT D-Dimer Heparin Anti-Xa Level ABG pH ABG pO2 73.2 L ABG HCO3 33.8 H ABG O2 Saturation ABG Base Excess 8.7 H ABG Hemoglobin 8.5 L Oxyhemoglobin 94.1 L Sodium Potassium Chloride Carbon Dioxide BUN Creatinine Glucose POC Glucose 166 H 136 H Hemoglobin A1c Lactic Acid Calcium Phosphorus Magnesium Ferritin AST ALT Alkaline Phosphatase Lactate Dehydrogenase Troponin T C-Reactive Protein Total Protein Albumin LDL Cholesterol Direct Urine Creatinine Urine Total Protein Salicylates Acetaminophen Crossmatch 11/09/21 11/09/21 11/09/21 15:48 16:10 20:31 WBC RBC Hgb Hct MCH RDW Plt Count Lymph % (Auto) [place] % (Auto) Lymph # (Auto) [place] # (Auto) Seg Neutrophils % Seg Neuts % (Manual) Lymphocytes % (Manual) Nucleated RBC % Seg Neutrophils # Seg Neutrophils # Man Monocytes # (Manual) PT INR APTT D-Dimer Heparin Anti-Xa Level ABG pH ABG pO2 ABG HCO3 ABG O2 Saturation ABG Base Excess ABG Hemoglobin Oxyhemoglobin Sodium Potassium 2.8 L* Chloride Carbon Dioxide 31 H BUN 53 H Creatinine 1.3 H Glucose 208 H POC Glucose 203 H 166 H Hemoglobin A1c Lactic Acid Calcium 7.9 L Phosphorus Magnesium Ferritin AST ALT Alkaline Phosphatase Lactate Dehydrogenase Troponin T C-Reactive Protein Total Protein Albumin LDL Cholesterol Direct Urine Creatinine Urine Total Protein Salicylates Acetaminophen Crossmatch 11/09/21 11/09/21 11/09/21 21:30 23:16 Unknown WBC RBC Hgb Hct MCH RDW Plt Count Lymph % (Auto) [place] % (Auto) Lymph # (Auto) [place] # (Auto) Seg Neutrophils % Seg Neuts % (Manual) Lymphocytes % (Manual) Nucleated RBC % Seg Neutrophils # Seg Neutrophils # Man Monocytes # (Manual) PT INR APTT D-Dimer Heparin Anti-Xa Level 0.24 L ABG pH ABG pO2 ABG HCO3 ABG O2 Saturation ABG Base Excess ABG Hemoglobin Oxyhemoglobin Sodium Potassium Chloride Carbon Dioxide BUN 52 H Creatinine 1.4 H Glucose 185 H POC Glucose 172 H Hemoglobin A1c Lactic Acid Calcium 7.8 L Phosphorus Magnesium Ferritin AST ALT Alkaline Phosphatase Lactate Dehydrogenase Troponin T C-Reactive Protein Total Protein Albumin LDL Cholesterol Direct Urine Creatinine Urine Total Protein Salicylates Acetaminophen Crossmatch 11/10/21 11/10/21 11/10/21 02:00 04:17 04:17 WBC 24.5 H RBC 2.75 L Hgb 7.5 L Hct 22.9 L MCH 27 L RDW Plt Count Lymph % (Auto) [place] % (Auto) Lymph # (Auto) [place] # (Auto) Seg Neutrophils % Seg Neuts % (Manual) Lymphocytes % (Manual) Nucleated RBC % Seg Neutrophils # Seg Neutrophils # Man Monocytes # (Manual) PT INR APTT D-Dimer Heparin Anti-Xa Level 0.26 L ABG pH ABG pO2 ABG HCO3 ABG O2 Saturation ABG Base Excess ABG Hemoglobin Oxyhemoglobin Sodium Potassium 2.9 L* Chloride Carbon Dioxide 35 H BUN 48 H Creatinine Glucose 212 H POC Glucose Hemoglobin A1c Lactic Acid Calcium 8.1 L Phosphorus Magnesium Ferritin AST ALT Alkaline Phosphatase Lactate Dehydrogenase Troponin T C-Reactive Protein Total Protein Albumin LDL Cholesterol Direct Urine Creatinine Urine Total Protein Salicylates Acetaminophen Crossmatch 11/10/21 11/10/21 11/10/21 05:01 08:39 11:03 WBC RBC Hgb Hct MCH RDW Plt Count Lymph % (Auto) [place] % (Auto) Lymph # (Auto) [place] # (Auto) Seg Neutrophils % Seg Neuts % (Manual) Lymphocytes % (Manual) Nucleated RBC % Seg Neutrophils # Seg Neutrophils # Man Monocytes # (Manual) PT INR APTT D-Dimer Heparin Anti-Xa Level 0.12 L ABG pH ABG pO2 ABG HCO3 ABG O2 Saturation ABG Base Excess ABG Hemoglobin Oxyhemoglobin Sodium Potassium Chloride Carbon Dioxide BUN Creatinine Glucose POC Glucose 203 H 152 H Hemoglobin A1c Lactic Acid Calcium Phosphorus Magnesium Ferritin AST ALT Alkaline Phosphatase Lactate Dehydrogenase Troponin T C-Reactive Protein Total Protein Albumin LDL Cholesterol Direct Urine Creatinine Urine Total Protein Salicylates Acetaminophen Crossmatch 11/10/21 11/10/21 11/10/21 12:45 15:43 21:05 WBC RBC Hgb Hct MCH RDW Plt Count Lymph % (Auto) [place] % (Auto) Lymph # (Auto) [place] # (Auto) Seg Neutrophils % Seg Neuts % (Manual) Lymphocytes % (Manual) Nucleated RBC % Seg Neutrophils # Seg Neutrophils # Man Monocytes # (Manual) PT INR APTT D-Dimer Heparin Anti-Xa Level ABG pH ABG pO2 ABG HCO3 ABG O2 Saturation ABG Base Excess ABG Hemoglobin Oxyhemoglobin Sodium 146 H Potassium 3.3 L Chloride Carbon Dioxide 31 H BUN 43 H Creatinine Glucose 155 H POC Glucose 139 H 139 H Hemoglobin A1c Lactic Acid Calcium 8.3 L Phosphorus Magnesium Ferritin AST ALT Alkaline Phosphatase Lactate Dehydrogenase Troponin T C-Reactive Protein Total Protein Albumin LDL Cholesterol Direct Urine Creatinine Urine Total Protein Salicylates Acetaminophen Crossmatch 11/10/21 11/11/21 11/11/21 23:25 03:49 03:49 WBC 22.1 H RBC 2.69 L Hgb 7.2 L Hct 22.7 L MCH 27 L RDW Plt Count Lymph % (Auto) [place] % (Auto) Lymph # (Auto) [place] # (Auto) Seg Neutrophils % Seg Neuts % (Manual) Lymphocytes % (Manual) Nucleated RBC % Seg Neutrophils # Seg Neutrophils # Man Monocytes # (Manual) PT INR APTT D-Dimer Heparin Anti-Xa Level ABG pH ABG pO2 ABG HCO3 ABG O2 Saturation ABG Base Excess ABG Hemoglobin Oxyhemoglobin Sodium Potassium Chloride Carbon Dioxide 32 H BUN 44 H Creatinine 1.3 H Glucose 173 H POC Glucose 146 H Hemoglobin A1c Lactic Acid Calcium Phosphorus Magnesium Ferritin AST ALT Alkaline Phosphatase Lactate Dehydrogenase Troponin T C-Reactive Protein Total Protein Albumin LDL Cholesterol Direct Urine Creatinine Urine Total Protein Salicylates Acetaminophen Crossmatch 11/11/21 11/11/21 11/11/21 05:03 10:50 11:32 WBC RBC Hgb Hct MCH RDW Plt Count Lymph % (Auto) [place] % (Auto) Lymph # (Auto) [place] # (Auto) Seg Neutrophils % Seg Neuts % (Manual) Lymphocytes % (Manual) Nucleated RBC % Seg Neutrophils # Seg Neutrophils # Man Monocytes # (Manual) PT INR APTT D-Dimer Heparin Anti-Xa Level ABG pH ABG pO2 ABG HCO3 ABG O2 Saturation ABG Base Excess ABG Hemoglobin Oxyhemoglobin Sodium Potassium Chloride Carbon Dioxide BUN Creatinine Glucose POC Glucose 152 H 129 H 133 H Hemoglobin A1c Lactic Acid Calcium Phosphorus Magnesium Ferritin AST ALT Alkaline Phosphatase Lactate Dehydrogenase Troponin T C-Reactive Protein Total Protein Albumin LDL Cholesterol Direct Urine Creatinine Urine Total Protein Salicylates Acetaminophen Crossmatch 11/11/21 11/11/21 11/11/21 13:53 16:31 17:13 WBC RBC Hgb Hct MCH RDW Plt Count Lymph % (Auto) [place] % (Auto) Lymph # (Auto) [place] # (Auto) Seg Neutrophils % Seg Neuts % (Manual) Lymphocytes % (Manual) Nucleated RBC % Seg Neutrophils # Seg Neutrophils # Man Monocytes # (Manual) PT INR APTT D-Dimer Heparin Anti-Xa Level ABG pH 7.475 H ABG pO2 64.1 L ABG HCO3 32.4 H ABG O2 Saturation ABG Base Excess 8.0 H ABG Hemoglobin 7.6 L Oxyhemoglobin 94.0 L Sodium Potassium Chloride Carbon Dioxide BUN Creatinine Glucose POC Glucose 116 H 125 H Hemoglobin A1c Lactic Acid Calcium Phosphorus Magnesium Ferritin AST ALT Alkaline Phosphatase Lactate Dehydrogenase Troponin T C-Reactive Protein Total Protein Albumin LDL Cholesterol Direct Urine Creatinine Urine Total Protein Salicylates Acetaminophen Crossmatch 11/11/21 11/11/21 11/12/21 20:40 23:35 03:30 WBC 17.7 H RBC 2.37 L Hgb 6.3 L Hct 20.0 L MCH 27 L RDW 15.5 H Plt Count Lymph % (Auto) [place] % (Auto) Lymph # (Auto) [place] # (Auto) Seg Neutrophils % Seg Neuts % (Manual) Lymphocytes % (Manual) Nucleated RBC % Seg Neutrophils # Seg Neutrophils # Man Monocytes # (Manual) PT INR APTT D-Dimer Heparin Anti-Xa Level 0.26 L ABG pH ABG pO2 ABG HCO3 ABG O2 Saturation ABG Base Excess ABG Hemoglobin Oxyhemoglobin Sodium Potassium Chloride Carbon Dioxide BUN Creatinine Glucose POC Glucose 118 H Hemoglobin A1c Lactic Acid Calcium Phosphorus Magnesium Ferritin AST ALT Alkaline Phosphatase Lactate Dehydrogenase Troponin T C-Reactive Protein Total Protein Albumin LDL Cholesterol Direct Urine Creatinine Urine Total Protein Salicylates Acetaminophen Crossmatch 11/12/21 11/12/21 11/12/21 03:30 04:15 11:53 WBC RBC Hgb Hct MCH RDW Plt Count Lymph % (Auto) [place] % (Auto) Lymph # (Auto) [place] # (Auto) Seg Neutrophils % Seg Neuts % (Manual) Lymphocytes % (Manual) Nucleated RBC % Seg Neutrophils # Seg Neutrophils # Man Monocytes # (Manual) PT INR APTT D-Dimer Heparin Anti-Xa Level ABG pH ABG pO2 ABG HCO3 ABG O2 Saturation ABG Base Excess ABG Hemoglobin Oxyhemoglobin Sodium Potassium Chloride Carbon Dioxide 33 H BUN 38 H Creatinine 1.3 H Glucose 102 H POC Glucose 62 L Hemoglobin A1c Lactic Acid Calcium 8.2 L Phosphorus Magnesium Ferritin AST ALT Alkaline Phosphatase Lactate Dehydrogenase Troponin T C-Reactive Protein Total Protein Albumin LDL Cholesterol Direct Urine Creatinine Urine Total Protein Salicylates Acetaminophen Crossmatch See Detail 11/12/21 11/12/21 11/12/21 17:20 19:14 23:11 WBC RBC Hgb 6.2 L Hct 19.5 L* MCH RDW Plt Count Lymph % (Auto) [place] % (Auto) Lymph # (Auto) [place] # (Auto) Seg Neutrophils % Seg Neuts % (Manual) Lymphocytes % (Manual) Nucleated RBC % Seg Neutrophils # Seg Neutrophils # Man Monocytes # (Manual) PT INR APTT D-Dimer Heparin Anti-Xa Level ABG pH ABG pO2 ABG HCO3 ABG O2 Saturation ABG Base Excess ABG Hemoglobin Oxyhemoglobin Sodium Potassium Chloride Carbon Dioxide BUN Creatinine Glucose POC Glucose 115 H 131 H Hemoglobin A1c Lactic Acid Calcium Phosphorus Magnesium Ferritin AST ALT Alkaline Phosphatase Lactate Dehydrogenase Troponin T C-Reactive Protein Total Protein Albumin LDL Cholesterol Direct Urine Creatinine Urine Total Protein Salicylates Acetaminophen Crossmatch 11/13/21 11/13/21 11/13/21 00:13 04:17 04:17 WBC 23.8 H RBC 2.84 L Hgb 7.4 L 7.8 L Hct 23.3 L 24.9 L MCH 27 L RDW 15.4 H Plt Count Lymph % (Auto) [place] % (Auto) Lymph # (Auto) [place] # (Auto) Seg Neutrophils % Seg Neuts % (Manual) Lymphocytes % (Manual) Nucleated RBC % Seg Neutrophils # Seg Neutrophils # Man Monocytes # (Manual) PT INR APTT D-Dimer Heparin Anti-Xa Level ABG pH ABG pO2 ABG HCO3 ABG O2 Saturation ABG Base Excess ABG Hemoglobin Oxyhemoglobin Sodium 146 H Potassium Chloride Carbon Dioxide BUN 44 H Creatinine 1.6 H Glucose 144 H POC Glucose Hemoglobin A1c Lactic Acid Calcium 7.9 L Phosphorus 5.10 H D Magnesium Ferritin AST ALT Alkaline Phosphatase Lactate Dehydrogenase Troponin T C-Reactive Protein Total Protein Albumin LDL Cholesterol Direct Urine Creatinine Urine Total Protein Salicylates Acetaminophen Crossmatch 11/13/21 11/13/21 11/13/21 05:52 10:54 15:57 WBC RBC Hgb Hct MCH RDW Plt Count Lymph % (Auto) [place] % (Auto) Lymph # (Auto) [place] # (Auto) Seg Neutrophils % Seg Neuts % (Manual) Lymphocytes % (Manual) Nucleated RBC % Seg Neutrophils # Seg Neutrophils # Man Monocytes # (Manual) PT INR APTT D-Dimer Heparin Anti-Xa Level ABG pH ABG pO2 ABG HCO3 ABG O2 Saturation ABG Base Excess ABG Hemoglobin Oxyhemoglobin Sodium Potassium Chloride Carbon Dioxide BUN Creatinine Glucose POC Glucose 123 H 147 H 207 H Hemoglobin A1c Lactic Acid Calcium Phosphorus Magnesium Ferritin AST ALT Alkaline Phosphatase Lactate Dehydrogenase Troponin T C-Reactive Protein Total Protein Albumin LDL Cholesterol Direct Urine Creatinine Urine Total Protein Salicylates Acetaminophen Crossmatch 11/13/21 11/13/21 11/14/21 16:01 23:18 04:55 WBC 23.9 H RBC 2.86 L Hgb 6.5 L 8.3 L Hct 20.3 L 24.5 L MCH RDW Plt Count Lymph % (Auto) [place] % (Auto) Lymph # (Auto) [place] # (Auto) Seg Neutrophils % Seg Neuts % (Manual) Lymphocytes % (Manual) Nucleated RBC % Seg Neutrophils # Seg Neutrophils # Man Monocytes # (Manual) PT INR APTT D-Dimer Heparin Anti-Xa Level ABG pH ABG pO2 ABG HCO3 ABG O2 Saturation ABG Base Excess ABG Hemoglobin Oxyhemoglobin Sodium Potassium Chloride Carbon Dioxide BUN Creatinine Glucose POC Glucose 209 H Hemoglobin A1c Lactic Acid Calcium Phosphorus Magnesium Ferritin AST ALT Alkaline Phosphatase Lactate Dehydrogenase Troponin T C-Reactive Protein Total Protein Albumin LDL Cholesterol Direct Urine Creatinine Urine Total Protein Salicylates Acetaminophen Crossmatch 11/14/21 11/14/21 11/14/21 04:55 05:09 11:35 WBC RBC Hgb Hct MCH RDW Plt Count Lymph % (Auto) [place] % (Auto) Lymph # (Auto) [place] # (Auto) Seg Neutrophils % Seg Neuts % (Manual) Lymphocytes % (Manual) Nucleated RBC % Seg Neutrophils # Seg Neutrophils # Man Monocytes # (Manual) PT INR APTT D-Dimer Heparin Anti-Xa Level ABG pH ABG pO2 ABG HCO3 ABG O2 Saturation ABG Base Excess ABG Hemoglobin Oxyhemoglobin Sodium 148 H Potassium Chloride 109.0 H Carbon Dioxide BUN 42 H Creatinine 1.6 H Glucose 184 H POC Glucose 169 H 154 H Hemoglobin A1c Lactic Acid Calcium 8.0 L Phosphorus Magnesium Ferritin AST ALT Alkaline Phosphatase Lactate Dehydrogenase Troponin T C-Reactive Protein Total Protein Albumin LDL Cholesterol Direct Urine Creatinine Urine Total Protein Salicylates Acetaminophen Crossmatch 11/14/21 11/14/21 11/15/21 16:57 23:11 04:36 WBC RBC Hgb Hct MCH RDW Plt Count Lymph % (Auto) [place] % (Auto) Lymph # (Auto) [place] # (Auto) Seg Neutrophils % Seg Neuts % (Manual) Lymphocytes % (Manual) Nucleated RBC % Seg Neutrophils # Seg Neutrophils # Man Monocytes # (Manual) PT INR APTT D-Dimer Heparin Anti-Xa Level ABG pH ABG pO2 ABG HCO3 ABG O2 Saturation ABG Base Excess ABG Hemoglobin Oxyhemoglobin Sodium 151 H Potassium Chloride 111.2 H Carbon Dioxide BUN 36 H Creatinine 1.3 H Glucose 136 H POC Glucose 124 H 118 H Hemoglobin A1c Lactic Acid Calcium 8.1 L Phosphorus Magnesium Ferritin AST ALT Alkaline Phosphatase Lactate Dehydrogenase Troponin T C-Reactive Protein Total Protein Albumin LDL Cholesterol Direct Urine Creatinine Urine Total Protein Salicylates Acetaminophen Crossmatch 11/15/21 11/15/21 11/16/21 11:18 21:49 00:15 WBC RBC Hgb Hct MCH RDW Plt Count Lymph % (Auto) [place] % (Auto) Lymph # (Auto) [place] # (Auto) Seg Neutrophils % Seg Neuts % (Manual) Lymphocytes % (Manual) Nucleated RBC % Seg Neutrophils # Seg Neutrophils # Man Monocytes # (Manual) PT INR APTT D-Dimer Heparin Anti-Xa Level ABG pH ABG pO2 ABG HCO3 ABG O2 Saturation ABG Base Excess ABG Hemoglobin Oxyhemoglobin Sodium Potassium Chloride Carbon Dioxide BUN Creatinine Glucose POC Glucose 154 H 154 H 146 H Hemoglobin A1c Lactic Acid Calcium Phosphorus Magnesium Ferritin AST ALT Alkaline Phosphatase Lactate Dehydrogenase Troponin T C-Reactive Protein Total Protein Albumin LDL Cholesterol Direct Urine Creatinine Urine Total Protein Salicylates Acetaminophen Crossmatch 11/16/21 11/16/21 11/16/21 05:11 05:11 05:37 WBC 18.2 H RBC 2.92 L Hgb 8.3 L Hct 26.1 L MCH RDW 15.8 H Plt Count Lymph % (Auto) 6.3 L [place] % (Auto) 10.2 H Lymph # (Auto) Humphreys # (Auto) 1.9 H Seg Neutrophils % 81.7 H Seg Neuts % (Manual) Lymphocytes % (Manual) Nucleated RBC % Seg Neutrophils # 14.9 H Seg Neutrophils # Man Monocytes # (Manual) PT INR APTT D-Dimer Heparin Anti-Xa Level ABG pH ABG pO2 ABG HCO3 ABG O2 Saturation ABG Base Excess ABG Hemoglobin Oxyhemoglobin Sodium 146 H Potassium Chloride 108.0 H Carbon Dioxide BUN 25 H Creatinine Glucose 123 H POC Glucose 109 H Hemoglobin A1c Lactic Acid Calcium 7.8 L Phosphorus Magnesium Ferritin AST ALT Alkaline Phosphatase Lactate Dehydrogenase Troponin T C-Reactive Protein Total Protein Albumin LDL Cholesterol Direct Urine Creatinine Urine Total Protein Salicylates Acetaminophen Crossmatch 11/16/21 11:22 WBC RBC Hgb Hct MCH RDW Plt Count Lymph % (Auto) Humphreys % (Auto) Lymph # (Auto) Humphreys # (Auto) Seg Neutrophils % Seg Neuts % (Manual) Lymphocytes % (Manual) Nucleated RBC % Seg Neutrophils # Seg Neutrophils # Man Monocytes # (Manual) PT INR APTT D-Dimer Heparin Anti-Xa Level ABG pH ABG pO2 ABG HCO3 ABG O2 Saturation ABG Base Excess ABG Hemoglobin Oxyhemoglobin Sodium Potassium Chloride Carbon Dioxide BUN Creatinine Glucose POC Glucose 136 H Hemoglobin A1c Lactic Acid Calcium Phosphorus Magnesium Ferritin AST ALT Alkaline Phosphatase Lactate Dehydrogenase Troponin T C-Reactive Protein Total Protein Albumin LDL Cholesterol Direct Urine Creatinine Urine Total Protein Salicylates Acetaminophen Crossmatch Chest x-ray: pending Allied health notes reviewed: nursing
--- NOTE | 2021-11-16 13:27 | XRay Report ---
CHEST 1 VIEW 11/16/2021 11:38 AM INDICATION / CLINICAL INFORMATION: resp distress. COMPARISON: 11/13/2021. FINDINGS: SUPPORT DEVICES: None. HEART / MEDIASTINUM: Stable cardiomegaly. LUNGS / PLEURA: Lung volumes remain diminished. Increasing bilateral opacity. No pneumothorax. ADDITIONAL FINDINGS: No significant additional findings. IMPRESSION: Moderate interval worsening. Suspect changes of congestive failure. Signer Name: Bassem Louis MD Signed: 11/16/2021 12:04 PM Workstation Name: [id number]
--- NOTE | 2021-11-16 13:58 | Progress Note ---
Assessment and Plan Patient is a 66-year-old female with unknown past medical history brought into the ED following outside of hospital cardiac arrest thought to be PEA with thought to have downtime of 7 to 9 minutes however details are unclear S/P PEA cardiopulmonary arrest-No longer on pressors Acute hypoxic respiratory failure-pulm following Septic shock Aspiration pneumonia Atrial flutter w/ RVR- currently sinus rhythm Pneumothorax- s/p CT Acute DVT-on Heparin gtt Hypokalemia Transaminitis Retroperitoneal Hematoma Echo 10/30/2021-technically difficult study due to body habitus. EF 25 to 30%. Right ventricular systolic function is normal. No pericardial effusion Plan: Patient hypertensive this a.m. will convert to metoprolol 100 mg p.o. twice daily Patient has remained in sinus rhythm we will stop amiodarone and continue to monitor Patient appears slightly hypervolemic on exam agree to agree with diuresis with Lasix IV 40 mg No LAYO/ ARB due to elevated creatinine Heparin gtt is on hold in the setting of anemia requiring pRBC transfusion (secondary to retroperitoneal hematoma) Continue present management Patient seen in conjunction with Dr. Johnson who agrees with this plan of care - Patient Problems (1) Cardiopulmonary arrest Current Visit: Yes Status: Acute (2) Hypokalemia Current Visit: Yes Status: Acute (3) Transaminitis Current Visit: Yes Status: Acute (4) Aspiration pneumonia Current Visit: Yes Status: Acute (5) Acute hypoxemic respiratory failure Current Visit: Yes Status: Acute (6) Septic shock Current Visit: Yes Status: Acute (7) Toxic metabolic encephalopathy Current Visit: Yes Status: Acute (8) Shock liver Current Visit: Yes Status: Acute Subjective Date of service: 11/16/21 Principal diagnosis: AHRF; Cardiac arrest; R. pneumothorax; pneumonia; AMS; DVT's; SIERRA; Obesity Interval history: Patient resting in bed in no acute distress. Patient currently on nasal cannula Patient sinus rate trending 80s Objective Vital Signs Temp Pulse Pulse Resp BP Pulse Ox 11/16/21 12:00 87 35 H 170/83 98 11/16/21 11:46 98.5 F 11/16/21 11:11 86 175/93 11/16/21 11:00 86 29 H 175/93 11/16/21 10:00 85 38 H 157/72 98 11/16/21 09:59 97 11/16/21 09:00 79 23 154/81 97 11/16/21 08:00 77 30 H 154/81 99 11/16/21 07:22 98.7 F 11/16/21 07:00 80 17 169/89 97 11/16/21 06:00 80 32 H 169/89 98 11/16/21 05:00 82 14 161/88 100 11/16/21 04:30 83 35 H 175/91 100 11/16/21 04:00 98.9 F 78 34 H 175/91 99 11/16/21 03:50 78 11/16/21 03:00 79 38 H 165/87 100 11/16/21 02:00 85 85 11 L 158/88 99 11/16/21 01:00 104 H 40 H 158/88 96 11/16/21 00:02 81 39 H 174/94 99 11/16/21 00:00 99.6 F 78 41 H 174/94 97 11/15/21 23:05 78 42 H 178/95 99 11/15/21 23:01 87 178/95 11/15/21 23:00 90 27 H 178/95 97 11/15/21 22:00 85 23 192/99 99 11/15/21 21:20 97 11/15/21 21:00 87 16 168/87 95 11/15/21 20:25 86 11/15/21 20:00 98.6 F 84 12 178/96 95 11/15/21 19:00 82 26 H 178/96 99 11/15/21 18:25 91 H 179/92 11/15/21 18:00 88 36 H 181/100 97 11/15/21 17:30 84 45 H 181/100 97 11/15/21 17:00 87 38 H 181/100 96 11/15/21 16:30 82 35 H 170/92 98 11/15/21 16:00 98.6 F 82 90 18 170/92 98 11/15/21 15:31 81 33 H 180/96 98 11/15/21 15:00 78 18 180/96 95 11/15/21 14:30 88 41 H 182/104 98 11/15/21 14:18 90 195/99 11/15/21 14:01 86 23 195/99 97 - Physical Examination General: No Apparent Distress HEENT: Positive: EOMI, Normocephaly Neck: Positive: trachea midline. Negative: JVD/HJR Cardiac: Positive: Reg Rate and Rhythm Lungs: Positive: Wheezes Neuro: Positive: Grossly Intact Abdomen: Positive: Soft Skin: Negative: Rash Musculoskeletal: No Pain Extremities: Present: edema, warm - Labs and Meds CBC 11/16/21 Range/Units 05:11 WBC 18.2 H (4.5-11.0) K/mm3 RBC 2.92 L (3.65-5.03) M/mm3 Hgb 8.3 L (10.1-14.3) gm/dl Hct 26.1 L (30.3-42.9) % Plt Count 317 (140-440) K/mm3 Lymph # (Auto) 1.2 (1.2-5.4) K/mm3 Randolph # (Auto) 1.9 H (0.0-0.8) K/mm3 Eos # (Auto) 0.3 (0.0-0.4) K/mm3 Baso # (Auto) 0.1 (0.0-0.1) K/mm3 Comprehensive Metabolic Panel 11/16/21 Range/Units 05:11 Sodium 146 H (137-145) mmol/L Potassium 3.9 (3.6-5.0) mmol/L Chloride 108.0 H (98-107) mmol/L Carbon Dioxide 29 (22-30) mmol/L BUN 25 H (7-17) mg/dL Creatinine 1.1 (0.6-1.2) mg/dL Glucose 123 H (65-100) mg/dL Calcium 7.8 L (8.4-10.2) mg/dL - Imaging and Cardiology EKG: report reviewed, image reviewed Echo: report reviewed - Telemetry EKG Rhythm: Sinus Rhythm - EKG Sinus rhythms and dysrhythmias: sinus rhythm Ventricular dysrhythmias: ventricular premature com Repolarization changes or abnormalities: nonspecific abnormality, ST segment, and/or T wave Myocardial infarction: septal IL (old age or ind - Allied health notes Allied health notes reviewed: nursing
[2021-11-16] MEDS: MORPHINE 4 MG/1 ML INJ IV PRN (21:35)
[2021-11-16] MEDS ORDERED: METOPROLOL TARTRATE 50 MG TAB FEEDTUBE SCH (22:00)
[2021-11-16] MEDS: INSULIN GLARGINE 100 UNITS/ML SUB-Q SCH (22:14)
[2021-11-16] MEDS: METOPROLOL TARTRATE 100 MG TAB PO SCH (22:14)
[2021-11-16] MEDS: SENNOSIDES/DOCUSATE SODIUM 8.6/50 MG TAB PO SCH (22:15)
[2021-11-17] MEDS: INSULIN LISPRO 100 UNIT/ML SUB-Q SCH ×3 (00:28→18:09)
[2021-11-17 05:21] LABS: Calcium 7.5 mg/dL (8.4-10.2)
--- NOTE | 2021-11-17 07:49 | Progress Note ---
Assessment and Plan Assessment and plan: Assessment and plan: This is a 66-year-old female with past medical history of HTN and Obesity admitted for septic shock, s/p cardiac arrest with ROSC in the field now intubated and on ventilatory support. Neuro: Acute Metabolic encephalopathy, agitation/anxiety -Avoid delirium -Reorientation as needed -Precedex gtt -Maintain sleep-wake cycle -CT head no acute focal parenchymal lesion in the brain -Neurology consulted, appreciate recommendations -EEG and MRI noted, Neuro recommend to cut down on sedation as possible Cardiac: Atrial fibrillation/atrial flutter s/p cardiac arrest, HFrEF, hypotension, h/o htn -Outside hospital cardiac arrest with ROSC -Cardiology consulted, appreciate recommendations - S/p Cardizem gtt- d/c due to low EF; now on PO Amio -s/p vasopressor support with levophed -Echocardiogram shows left ventricular systolic function severely decreased, LVEF 25 to 30%, no pericardial effusion -proBNP 5622 -BP monitoring per protocol Respiratory: Acute hypoxic respiratory failure, right pneumothorax, Angioedema (resolved), pulmonary edema -[facility] consulted, appreciate recommendations -Intubated on 10/29 and extubated on 11/11 -ABG and CXR per CCM -Bipap q HS and prn -NC during day -pulm hygiene -SPO2 monitoring -s/p right chest tube -s/p steroids for angioedema - will need additional lasix doses for pulmonary edema. GI: Protein calorie malnutrion, transaminitis likely shocked liver -24 hours -2485 mL -PPI -NTR consulted for tube feedings -Trend LFTs -BM: 11/14 -failed ST eval : Acute kidney injury likely secondary to vasomotor nephropathy, hypernatremia -Nephrology consulted, appreciate recommendations -Krishna replaced 11/05 urinary retention -Strict intake and output -Renally dose medications -Avoid nephrotoxic medications -Daily weights -FWF -FeNa 0.05 indicating pre-renal -Medically treat hyperkalemia again -Trend BMP ID: Septic shock -COVID-19 PCR negative -S/p antibiotic therapy with Rocephin and azithromycin () -S/p Levophed gtt for hypotension -Follow-up culture data -Monitor WBC and temperature curve Endo: Hyperglycemia 9resolved) -Avoid hypoglycemia -Hbg A1C 6.7 -SSI and lantus q hs (titrate as needed) -Accu-Cheks q. 6 Heme: Acute DVT in the left posterior tibial vein and bilateral peroneal veins, Leukocytosis, Anemia, retroperitoneal bleed -D-dimer greater than 10,000 -CTA chest with no evidence of PE -Bilateral lower extremity ultrasound positive for DVT -Heparin gtt on hold d/t anemia -vasuclar surgery consulted, appreciate recommendations -recommended multiphasic CT angio of the abdomen and pelvis with and without contrast if H/H drops and does not recommend IVC filter at this time as the DVTs are infrapopliteal and recommends a DVT study weekly for 2 weeks -Trend CBC -SCDs to BLE while in bed -Transfuse hemoglobin less than 7 -Monitor for signs of bleeding The high probability of a clinically significant, sudden or life threatening deterioration of the [multi] system(s) required my full and direct attention, intervention and personal management. The aggregate critical care time was [60] minutes. This time is in addition to time spent performing reported procedures but includes the following: [x] Data Review and interpretation [x] Patient assessment and monitoring of vital signs [x] Documentation [x] Medication orders and management Disposition Plan: imcu Total Time Spent with Patient (Minutes): 60 History Interval history: Interval history: This is a 66-year-old female with HTN and obesity who presented to the hospital on 10/29 via EMS with s/p cardiac arrest with CPR initiated by bystanders and upon EMS arrival a David airway was placed and ACLS was initiated. Patient had ROSC after 5-7 minutes and was started on epinephrine in route for hemodynamic support. Upon arrival to the emergency department patient GCS was noted to be 3 and she was biting the endotracheal tube with dilated pupils and copious vomitus and gastric secretions in the oropharynx/mouth/neck. David airway was removed and patient was intubated in the emergency department. Patient was admitted to the hospitalist service s/p cardiac arrest on sepsis and pneumonia protocol with consults to [facility]. Cardiology was consulted upon arrival to ICU. Hospital Course to Date: 10/30: Intubated and sedated, on fentanyl gtt. Open eyes spontaneously but does not follow any commands. On vasopressors, titrate as tolerated for MAP above 65. Patient febrile overnight, continue empiric IV Abx, culture data and COVID PCR pending. Patient is also s/p CT placement due to spontaneous pneumothorax. 2D echo is pending and Cardiology is consulted. 10/31: Patient remains intubated and following commands. Levophed drip stopped and potassium repleted. Patient started on tube feeding. Remains in soft bilateral restraints. 11/01: RN noted ST changes on BSM and 12 lead EKG obtained which showed ST. Given Ativan 1mg for agitation as she is maxed on fentanyl drip and IV push fentanyl did not seem to help. Patient was started on CPAP this morning by RT but remained on fentanyl drip and was having periods of apnea. Plan was to retry CPAP again in the p.m. with sedation off. 11/02: Rate increased r/t hypercapnea on ABG, sedation reduced. Given kionex for hyperkalemia and was started on levophed overnight for hypotension. 11/03: Overnight patient had tachycardia and was given Cardizem and Lopressor. Lopressor was repeated in the a.m. due to tachycardia. Patient will be started on amiodarone with a bolus per cardiology. Patient started on normal saline per liter per [facility] and steroids for angioedema. Noted to have bright red blood when suctioned from oh ETT. Remains on heparin drip as H/H is stable for now. Will reevaluate. Fentanyl drip was restarted last night due to agitation. Dr. Flores updated family today 11/04: Patient was sedated on fentanyl however off sedation is able to follow commands, a.m. labs completed in the p.m. and show hyperkalemia with increased renal function studies. Nephrology, neurology consulted by [facility]. Given Kayexalate, insulin and D50 for hyperkalemia. Patient remains on amiodarone. 11/05: Patient needed to be sedated on fentanyl again to today. overnight krishna was replaced. Hyperkalemia->given kionex 60 for 5.6. Repeat K 6-> Dr. Grant informed and requested bumex, kionex, insulin, d50, calcium gluconate and sodium bicarb with repeat BMP in 2 hours which were placed. HR remains elevated. 11/06: Patient remained in atrial fibrillation/atrial flutter with heart rate in the 150s despite being on amnio drip and was given amnio bolus, Cardizem bolus and started on Cardizem drip by cardiology. Patient is on beta-blockers p.o. scheduled and to feedings changed to Nepro. Kayexalate was given in the morning by nephrology due to hyperkalemia. 11/07: Patient is only responsive to mild stimuli, precedex added in an attempt to wean off fentanyl gtt to better assess her mental status. Neurology also on consult, pending MRI and EEG. Patient remains in Aflutter this am, HR in the 80 to 90s, still on amiodarone and heparin gtt. 11/08: Fentanyl gtt is off, only on precedex gtt. Patient is still not following any commands. MRI brain and EEG completed. Neuro recommendations noted, sedatives agents decreased. FWF added for hypernatremia and low K repleted, repeat labs ordered. Placed a call and spoke with patient's daughter, Eva Brown . She was updated on patient's conditions and status. All questions and concerns were voiced at this time. 11/09: Patient is awake and alert this am, following commands and appropriate. Remains on precedex gtt, plan for possible PST today. Hypertensive overnight, meds adjusted by Cardio and PRN Hydralazine added for SBP greater than 160. CT dislodged overnight, CXR is stable with no significant change. F/U CXR in the am. Patient's daughter, Eva Brown, visited with patient. She was updated on patient's status and goal of care for today. All questions and concerns were voiced at this time. 11/10: Mentation remains intact, still on precedex gtt. This am CXR noted still with fluid overload s/p X1 dose of IV lasix, good response from IV lasix overnight. Hypernatremia improved, D5W d/dayday. Still with persistent hypokalemia, continue electrolytes replacement and frequent lab check. Daily IV lasix and aldactone added by Cardio. Patient is also with persistent low grade fevers overnight, leukocytosis with mild improvement this am. Will get a repeat sputum culture, hold off on IV abx for now. Consider ID consult if fevers and leukocytosis persist. Patient tolerated PST X4hrs yesterday. PST again today, plan to wean to extubate if tolerated. 11/11: IAM overnight. Off precedex gtt and tolerated PST this am. Plan to wean to extubate today. Additional IV lasix given, plan to keep patient at a net negative balance for better lung compliance. F/U CXR in the am. K improved this am, repeat BMP this afternoon since diuresing. Remains with low grade fevers, leukocytosis downtrending, will continue to monitor. Speech/PT/OT ordered 11/12: S/p extubation, now stable on 3L NC. This am CXR noted with no significant changes, lasix changed to IV X4days BID. Drop in H&H this am, and Lt. flank ecchymosis noted. Heparin gtt on hold for now and orders placed for 1 unit of PRBCs and Ct Abd/Pelvis w/o con to r/o retroperitoneal bleed. Pending speech swallow eval, keep patient NPO for now. Patient is stable for IMCU status 11/13: Patient with increased WOB and tachycardia this am, patient was placed on Bipap and precedex gtt was resumed. CXR with mild improvement. CT Abd/Pelvis also reviewed large hematomas noted at the Lt. retroperitoneum and left posterior lateral abdominal wall. Heparin gtt is already on hold, patient is hemodynamically stable. Vascular Surgery consulted for possible IVC filter eval. Patient s/p 2units of PRBCs, will continue to trend H&H and transfuse if hbg is less than 7. Worsening renal function this am, IF diuretic on hold for now. Patient is also febrile with spike in wbcs most likely reactive to bleed, will panculture and hold off on IV Abx for now. Patient also failed speech bedside swallow eval yesterday, NGT in placed plan to resume enteral nutrition 11/14: Patient had bilateral lower extremity Doppler ultrasound and vascular surgery has recommended multiphasic CT angio of the abdomen and pelvis with and without contrast if H/H drops and does not recommend IVC filter at this time as the DVTs are infrapopliteal and recommends a DVT study weekly for 2 weeks. FWF 250 q4 ml per nephro. Started on as needed Xanax and p.o. amiodarone. She did not pass her ST evaluation today. Will be transferred to IMCU. 11/15: Resting comfortably on encounter. Speech cleared for pureed diet. Remains on 3l satting 98 % on bedside encounter. Does not appear to be in respiratory distress. Will continue to hold AC, No ivc filter planned at this time. qweekly doppler to monitor for migration of DVT per vascular. If demonstrated, will consider IVC filter. CBC ordered for tomorrow, will continue monitoring in light of retroperitoneal hematoma. FWF increased by nephrology to 350cc q4hr d/t hypernatremia. UOP/renal function both improved. D/w cardiology, will continue amiodorone an additional 24hrs. Plan to change dosing of metoprolol. Continue to wean off of precedex. Continue xanax scheduled for anxiety. physical therapy recs noted, fernanda / ltac will discuss with CM. Continue IMCU monitoring. 11/16: Pulmonary congestion this AM. CXR ordered. Lasix 40 mg IV x 1 order this AM. Will monitor for 24 hrs. potential downgrade to medical floor tomorrow. 11/17: Persisting pulmonary congestion, was on bipap overnight into this AM. Will order additional lasix 40 mg IV x 2. CXR ordered for AM. Possible downgrade to floor tomorrow. Anticipate d/c sunday. Hospitalist Physical - Physical exam Narrative exam: General appearance: Present: no acute distress, obese - EENT Eyes: Present: PERRL, EOM intact ENT: hearing intact, dentition normal - Neck Neck: Present: normal ROM - Respiratory Respiratory effort: normal Respiratory: bilateral: CTA - Cardiovascular Rhythm: regular Heart Sounds: Present: S1 & S2, systolic murmur, diastolic murmur - Extremities Extremities: no ischemia, pulses intact, pulses symmetrical, normal temperature, normal color Peripheral Pulses: within normal limits - Abdominal General gastrointestinal: soft, non-distended, normal bowel sounds - Integumentary Integumentary: Present: warm, dry, bruising from hematoma noted. - Psychiatric Psychiatric: cooperative - Neurologic Neurologic: CNII-XII intact, moves all extremities - Allied Health Allied health notes reviewed: nursing, RT, social work - Constitutional Vitals: Temp Pulse Resp BP Pulse Ox 99.3 F 72 30 H 155/82 100 11/17/21 07:19 11/17/21 06:00 11/17/21 06:00 11/17/21 06:00 11/17/21 06:00 General appearance: Present: no acute distress, obese HEART Score - HEART Score Troponin: Troponin T 1.150 ng/mL (0.00-0.029) H* D 10/29/21 22:34 Results - Labs CBC & Chem 7: 11/16/21 05:11 11/17/21 04:33 Labs: Laboratory Last Values WBC 18.2 K/mm3 (4.5-11.0) H 11/16/21 05:11 RBC 2.92 M/mm3 (3.65-5.03) L 11/16/21 05:11 Hgb 8.3 gm/dl (10.1-14.3) L 11/16/21 05:11 Hct 26.1 % (30.3-42.9) L 11/16/21 05:11 MCV 89 fl (79-97) 11/16/21 05:11 MCH 29 pg (28-32) 11/16/21 05:11 MCHC 32 % (30-34) 11/16/21 05:11 RDW 15.8 % (13.2-15.2) H 11/16/21 05:11 Plt Count 317 K/mm3 (140-440) 11/16/21 05:11 Lymph % (Auto) 6.3 % (13.4-35.0) L 11/16/21 05:11 [place] % (Auto) 10.2 % (0.0-7.3) H 11/16/21 05:11 Eos % (Auto) 1.5 % (0.0-4.3) 11/16/21 05:11 Baso % (Auto) 0.3 % (0.0-1.8) 11/16/21 05:11 Lymph # (Auto) 1.2 K/mm3 (1.2-5.4) 11/16/21 05:11 [place] # (Auto) 1.9 K/mm3 (0.0-0.8) H 11/16/21 05:11 Eos # (Auto) 0.3 K/mm3 (0.0-0.4) 11/16/21 05:11 Baso # (Auto) 0.1 K/mm3 (0.0-0.1) 11/16/21 05:11 Add Manual Diff Complete 11/07/21 06:30 Total Counted 100 11/07/21 06:30 Seg Neutrophils % 81.7 % (40.0-70.0) H 11/16/21 05:11 Seg Neuts % (Manual) 77.0 % (40.0-70.0) H 11/07/21 06:30 Band Neutrophils % 1.0 % 11/07/21 06:30 Lymphocytes % (Manual) 11.0 % (13.4-35.0) L 11/07/21 06:30 Reactive Lymphs % (Man) 3.0 % 11/07/21 06:30 Monocytes % (Manual) 2.0 % (0.0-7.3) 11/07/21 06:30 Eosinophils % (Manual) 0 % (0.0-4.3) 11/07/21 06:30 Basophils % (Manual) 0 % (0.0-1.8) 11/07/21 06:30 Metamyelocytes % 1.0 % 11/07/21 06:30 Myelocytes % 5.0 % 11/07/21 06:30 Promyelocytes % 0 % 11/07/21 06:30 Blast Cells % 0 % 11/07/21 06:30 Nucleated RBC % 2.0 % (0.0-0.9) H 11/07/21 06:30 Seg Neutrophils # 14.9 K/mm3 (1.8-7.7) H 11/16/21 05:11 Seg Neutrophils # Man 12.3 K/mm3 (1.8-7.7) H 11/07/21 06:30 Band Neutrophils # 0.2 K/mm3 11/07/21 06:30 Lymphocytes # (Manual) 1.8 K/mm3 (1.2-5.4) 11/07/21 06:30 Abs React Lymphs (Man) 0.5 K/mm3 11/07/21 06:30 Monocytes # (Manual) 0.3 K/mm3 (0.0-0.8) 11/07/21 06:30 Eosinophils # (Manual) 0.0 K/mm3 (0.0-0.4) 11/07/21 06:30 Basophils # (Manual) 0.0 K/mm3 (0.0-0.1) 11/07/21 06:30 Metamyelocytes # 0.2 K/mm3 11/07/21 06:30 Myelocytes # 0.8 K/mm3 11/07/21 06:30 Promyelocytes # 0.0 K/mm3 11/07/21 06:30 Blast Cells # 0.0 K/mm3 11/07/21 06:30 WBC Morphology Not Reportable 11/07/21 06:30 Hypersegmented Neuts Not Reportable 11/07/21 06:30 Hyposegmented Neuts Not Reportable 11/07/21 06:30 Hypogranular Neuts Not Reportable 11/07/21 06:30 Smudge Cells Not Reportable 11/07/21 06:30 Toxic Granulation Not Reportable 11/07/21 06:30 Toxic Vacuolation Not Reportable 11/07/21 06:30 Dohle Bodies Not Reportable 11/07/21 06:30 Pelger-Huet Anomaly Not Reportable 11/07/21 06:30 Manny Rods Not Reportable 11/07/21 06:30 Platelet Estimate Consistent w auto 11/07/21 06:30 Clumped Platelets Not Reportable 11/07/21 06:30 Plt Clumps, EDTA Not Reportable 11/07/21 06:30 Large Platelets 1+ 11/07/21 06:30 Giant Platelets Not Reportable 11/07/21 06:30 Platelet Satelliting Not Reportable 11/07/21 06:30 Plt Morphology Comment Not Reportable 11/07/21 06:30 RBC Morphology Not Reportable 11/07/21 06:30 Dimorphic RBCs Not Reportable 11/07/21 06:30 Polychromasia Not Reportable 11/07/21 06:30 Hypochromasia 1+ 11/07/21 06:30 Poikilocytosis Not Reportable 11/07/21 06:30 Anisocytosis Not Reportable 11/07/21 06:30 Microcytosis Not Reportable 11/07/21 06:30 Macrocytosis Not Reportable 11/07/21 06:30 Spherocytes 1+ 11/07/21 06:30 Pappenheimer Bodies Not Reportable 11/07/21 06:30 Sickle Cells Not Reportable 11/07/21 06:30 Target Cells 1+ 11/07/21 06:30 Tear Drop Cells Not Reportable 11/07/21 06:30 Ovalocytes Not Reportable 11/07/21 06:30 Helmet Cells Not Reportable 11/07/21 06:30 Maradiaga-Atkinson Bodies Not Reportable 11/07/21 06:30 [place] Rings Not Reportable 11/07/21 06:30 [place] Cells Not Reportable 11/07/21 06:30 Bite Cells Not Reportable 11/07/21 06:30 Crenated Cell Not Reportable 11/07/21 06:30 Elliptocytes Not Reportable 11/07/21 06:30 Acanthocytes (Spur) Not Reportable 11/07/21 06:30 Rouleaux Not Reportable 11/07/21 06:30 Hemoglobin C Crystals Not Reportable 11/07/21 06:30 Schistocytes Not Reportable 11/07/21 06:30 Malaria parasites Not Reportable 11/07/21 06:30 Magdy Bodies Not Reportable 11/07/21 06:30 Hem Pathologist Commnt No 11/07/21 06:30 PT 17.2 Sec. (12.2-14.9) H 10/30/21 16:30 INR 1.27 (0.87-1.13) H 10/30/21 16:30 APTT 44.4 Sec. (24.2-36.6) H 10/30/21 16:30 D-Dimer > 81742 ng/mlDDU (0-234) H 10/30/21 Unknown Heparin Anti-Xa Level 0.62 U.I./ml (0.3-0.7) 11/12/21 03:30 ABG pH 7.475 pH Units (7.350-7.450) H 11/11/21 13:53 ABG pCO2 45.0 mm Hg 11/11/21 13:53 ABG pO2 64.1 mm Hg (80.0-90.0) L 11/11/21 13:53 ABG HCO3 32.4 mmol/L (20.0-26.0) H 11/11/21 13:53 ABG O2 Saturation 96.3 % (95.0-99.0) 11/11/21 13:53 ABG O2 Content 10.1 (0.0-44) 11/11/21 13:53 ABG Base Excess 8.0 mmol/L (-2.0-3.0) H 11/11/21 13:53 ABG Hemoglobin 7.6 gm/dl (12.0-16.0) L 11/11/21 13:53 ABG Carboxyhemoglobin 1.8 % (0.0-5.0) 11/11/21 13:53 ABG Methemoglobin 0.5 % (0.0-1.5) 11/11/21 13:53 Oxyhemoglobin 94.0 % (95.0-99.0) L 11/11/21 13:53 FiO2 32 % 11/11/21 13:53 Sodium 145 mmol/L (137-145) 11/17/21 04:33 Potassium 3.9 mmol/L (3.6-5.0) 11/17/21 04:33 Chloride 105.1 mmol/L (98-107) 11/17/21 04:33 Carbon Dioxide 29 mmol/L (22-30) 11/17/21 04:33 Anion Gap 15 mmol/L 11/17/21 04:33 BUN 20 mg/dL (7-17) H 11/17/21 04:33 Creatinine 1.1 mg/dL (0.6-1.2) 11/17/21 04:33 Estimated GFR 60 ml/min 11/17/21 04:33 BUN/Creatinine Ratio 18 % 11/17/21 04:33 Glucose 89 mg/dL (65-100) 11/17/21 04:33 POC Glucose 89 mg/dL (70-105) 11/17/21 06:02 Hemoglobin A1c 6.7 % (4-6) H 10/31/21 04:30 Lactic Acid 0.70 mmol/L (0.7-2.0) 10/31/21 15:45 Calcium 7.5 mg/dL (8.4-10.2) L 11/17/21 04:33 Phosphorus 3.20 mg/dL (2.5-4.5) D 11/14/21 04:55 Magnesium 2.20 mg/dL (1.7-2.3) 11/14/21 04:55 Ferritin 208.4 ng/mL (10.0-200.0) H 10/30/21 Unknown Total Bilirubin < 0.20 mg/dL (0.1-1.2) 11/06/21 02:35 AST 21 units/L (5-40) 11/06/21 02:35 ALT 77 units/L (7-56) H 11/06/21 02:35 Alkaline Phosphatase 84 units/L (35-129) 11/06/21 02:35 Ammonia 31.0 umol/L (25-60) 10/29/21 15:10 Lactate Dehydrogenase 469 units/L (91-180) H 10/30/21 Unknown Troponin T 1.150 ng/mL (0.00-0.029) H* D 10/29/21 22:34 C-Reactive Protein 13.40 mg/dL (0.00-1.30) H 10/30/21 Unknown Total Protein 6.3 g/dL (6.3-8.2) 11/06/21 02:35 Albumin 3.0 g/dL (3.9-5) L 11/06/21 02:35 Albumin/Globulin Ratio 0.9 % 11/06/21 02:35 Triglycerides 68 mg/dL (2-149) 10/29/21 19:40 Cholesterol 98 mg/dL (50-199) 10/29/21 19:40 LDL Cholesterol Direct 43 mg/dL (50-130) L 10/29/21 19:40 HDL Cholesterol 50 mg/dL (40-59) 10/29/21 19:40 Cholesterol/HDL Ratio 1.96 % 10/29/21 19:40 Procalcitonin 61.95 ng/mL (<0.15) 10/30/21 Unknown TSH 3.080 mlU/mL (0.270-4.200) 10/29/21 15:10 Urine Color Yellow (Yellow) 11/13/21 08:30 Urine Turbidity Slightly-cloudy (Clear) 11/13/21 08:30 Urine pH 6.0 (5.0-7.0) 11/13/21 08:30 Ur Specific [place] 1.010 (1.003-1.030) 11/13/21 08:30 Urine Protein <15 mg/dl mg/dL (Negative) 11/13/21 08:30 Urine Glucose (UA) Neg mg/dL (Negative) 11/13/21 08:30 Urine Ketones Tr mg/dL (Negative) 11/13/21 08:30 Urine Blood Sm (Negative) 11/13/21 08:30 Urine Nitrite Neg (Negative) 11/13/21 08:30 Urine Bilirubin Neg (Negative) 11/13/21 08:30 Urine Urobilinogen < 2.0 mg/dL (<2.0) 11/13/21 08:30 Ur Leukocyte Esterase Neg (Negative) 11/13/21 08:30 Urine WBC (Auto) < 1.0 /HPF (0.0-6.0) 11/13/21 08:30 Urine RBC (Auto) < 1.0 /HPF (0.0-6.0) 11/13/21 08:30 U Epithel Cells (Auto) < 1.0 /HPF (0-13.0) 11/13/21 08:30 Urine Mucus Few /HPF 10/29/21 18:15 Urine Eosinophils None seen (None Seen) 11/04/21 Unknown Urine Creatinine 190.9 mg/dL (0.1-20.0) H 11/04/21 Unknown Protein/Creatinin Ratio 0.90 11/04/21 Unknown Urine Sodium 10 mmol/L 11/04/21 Unknown Urine Total Protein 172 mg/dL (5-11.8) H 11/04/21 Unknown Salicylates < 0.3 mg/dL (2.8-20.0) L 10/29/21 15:10 Urine Opiates Screen Negative 10/29/21 18:15 Urine Methadone Screen Negative 10/29/21 18:15 Acetaminophen 5.0 ug/mL (10.0-30.0) L 10/29/21 15:10 Ur Barbiturates Screen Negative 10/29/21 18:15 Ur Phencyclidine Scrn Negative 10/29/21 18:15 Ur Amphetamines Screen Negative 10/29/21 18:15 U Benzodiazepines Scrn Negative 10/29/21 18:15 Urine Cocaine Screen Negative 10/29/21 18:15 U Marijuana (THC) Screen Negative 10/29/21 18:15 Drugs of Abuse Note Disclamer 10/29/21 18:15 Plasma/Serum Alcohol < 0.01 % (0-0.07) 10/29/21 15:10 Coronavirus (PCR) Negative (Negative) 10/30/21 Unknown Blood Type O POSITIVE 11/12/21 04:15 Antibody Screen Negative 11/12/21 04:15 Crossmatch See Detail 11/12/21 04:15 Microbiology: Microbiology 11/13/21 08:38 Peripheral/Venous Blood Culture - Preliminary NO GROWTH AFTER 72 HOURS 11/13/21 08:38 Peripheral/Venous Blood Culture - Preliminary NO GROWTH AFTER 72 HOURS Krishna/IV: Voiding Method Indwelling Catheter Active Medications - Current Medications Current Medications: Generic Name Dose Route Start Last Admin Trade Name Freq PRN Reason Stop Dose Admin Acetaminophen 650 mg 10/29/21 17:04 11/12/21 22:53 Acetaminophen 650 Mg Rect Supp OH 650 mg Q6H PRN Administration Pain MILD(1-3)/Fever >100.5/NIEVES Alprazolam 0.25 mg 11/14/21 14:29 11/16/21 05:02 Alprazolam 0.25 Mg Tab PO 0.25 mg Q8H PRN Administration Anxiety Dextrose 0 ml 11/04/21 13:48 11/12/21 05:45 Dextrose 10% *Hypoglycemia IV 50 ml PRN PRN Administration Hypoglycemia Famotidine 10 mg 11/06/21 10:00 11/16/21 22:15 Famotidine 10 Mg Tab PO 10 mg BID RAMON Administration Hydrophilic Ointment 1 applic 10/29/21 14:29 11/09/21 08:51 Lip Therapy Vaseline TP 1 applic Q2HR PRN Administration Dry Lips Insulin Glargine 10 units 11/13/21 22:00 11/16/21 22:14 Insulin Glargine 100 Units/Ml SUB-Q 10 units QHS RAMON Administration Insulin Human Lispro 0 unit 10/30/21 16:00 11/17/21 06:26 Insulin Lispro 100 Unit/Ml SUB-Q Not Given Q6HR [facility] Protocol Metoprolol Tartrate 100 mg 11/16/21 22:00 11/16/21 22:14 Metoprolol Tartrate 100 Mg Tab PO 100 mg BID RAMON Administration Morphine Sulfate 2 mg 11/16/21 21:16 Morphine 4 Mg/1 Ml Inj IV Q3H PRN Pain, Moderate (4-6) Multi-Ingred Cream/Lotion/Oil/Oint 1 applic 10/29/21 14:29 11/06/21 09:25 Mineral Oil/Petrolatum, White Ophth Oint 3.5 Gm OU 1 applic Q4HR PRN Administration Dry Eye(s) Senna/Docusate Sodium 1 tab 11/16/21 22:00 11/16/21 22:15 Sennosides/Docusate Sodium 8.6/50 Mg Tab PO 1 tab BID RAMON Administration Sodium Chloride 10 ml 10/29/21 22:00 11/16/21 22:15 Sodium Chloride 0.9% 10 Ml Flush Syringe IV 10 ml BID RAMON Administration Sodium Chloride 10 ml 10/29/21 17:04 Sodium Chloride 0.9% 10 Ml Flush Syringe IV PRN PRN LINE FLUSH Spironolactone 25 mg 11/10/21 10:00 11/16/21 11:11 Spironolactone 25 Mg Tab PO 25 mg QDAY RAMON Administration Nutrition/Malnutrition Assess - Dietary Evaluation Nutrition/Malnutrition Findings: Nutrition Notes Start: 10/30/21 09:50 Freq: Status: Active Protocol: Document 11/15/21 17:52 MEENU (Rec: 11/15/21 18:08 MEENU [id number]) Nutrition Notes Initial or Follow up Reassessment Current Diagnosis Acute Kidney Injury,Sepsis, Respiratory Failure Other Pertinent Diagnosis SIERRA/ATN, s/p Cardiac Arrest, DVT, Anemia, Pneumonia, Pneumothorax. Current Diet Pureed Diet (since L 11/15). Labs/Tests 11/15: Na 151, Cl 111.2, BUN 36, Crea 1.3, Glu 136. Pertinent Medications 11/15: Insulin, others nutritionally unremarkable. Height 5 ft 10 in Weight 112 kg [place] Body Weight (kg) 68.18 BMI 35.4 Weight change and time frame 5.3 Kg body weight gained in 1 week reported. Weight Status Obese Subjective/Other Information RD consult for routine F/u on TF tolerance. Pt extubated 11/11, according to Progress notes. SUPERINTENDENT OVERHEAD DISTRIBUTION 11/14: Reassessment was deferred secondary to the patient being placed back on BIPAP due to saturations decreasing to 80's. SUPERINTENDENT OVERHEAD DISTRIBUTION 11/15: Reassessment of swallowing function was conducted. Patient was given pureed and thins. Minimal jaw movement was noted with pureed with a slight increase in work of breathing. Laryngeal elevation was reduced. No evidence of aspiration was identified with thins nor pureed. No reports available on Pt's PO intake of meals at the time . Percent of energy/protein needs met: Prescribed Pureed Diet provides for energy/protein needs (1,804 Kcal/77 g) during LOS. Burn Absent Trauma Absent GI Symptoms None Food Allergy No Skin Integrity/Comment Assessment WNL. Minimum of two criteria No #1 Nutrition Diagnosis Inadequate oral intake Comments: SUPERINTENDENT OVERHEAD DISTRIBUTION 11/15: Reassessment of swallowing function was conducted. Patient was given pureed and thins. Minimal jaw movement was noted with pureed with a slight increase in work of breathing. Laryngeal elevation was reduced. No evidence of aspiration was identified with thins nor pureed. Diagnosis Progress(for reassessment Improved documentation) Is patient on ventilator? Yes Is Patient Ambulatory and/or Out of Bed No REE-([facility]-confined to bed) [phone] Kcal/Kg value to use for calculation 15 Approximate Energy Requirements Using 1680 kcal/Kg Calculation Used for Recommendations Kcal/kg Additional Notes Protein: 0.8-1.2 g/Kg IBW; 70- 105 g/day. Fluids: 1 ml/Kcal, or as per MD. Nutrition Intervention Change Diet Order: Continue Pureed Diet. Nutrition Support: d/c. Goal #1 Maintain body weight within +/ -3% of admission body weight during LOS. Goal #2 Facilitate PO intake of meals with mechanical modification during LOS. Follow-Up By: 11/17/21 Additional Comments Continue monitoring food tolerance, %PO intake of meals , and BM.
[2021-11-17] MEDS ORDERED: FUROSEMIDE 40 MG TAB PO SCH (10:00)
[2021-11-17] MEDS: METOPROLOL TARTRATE 100 MG TAB PO SCH ×2 (10:59→22:04)
[2021-11-17] MEDS: SPIRONOLACTONE 25 MG TAB PO SCH (11:00)
[2021-11-17] MEDS: FAMOTIDINE 10 MG TAB PO SCH ×2 (11:00→22:04)
[2021-11-17] MEDS: SENNOSIDES/DOCUSATE SODIUM 8.6/50 MG TAB PO SCH ×2 (11:02→22:04)
[2021-11-17] MEDS: FUROSEMIDE 40 MG/4 ML INJ IV SCH ×2 (11:03→18:17)
--- NOTE | 2021-11-17 12:10 | Progress Note ---
Assessment and Plan Acute Renal Failure secondary to Ischemic ATN secondary to Sepsis, Cardiac arrest and Hypotension S/P Cardiac Arrest Acute Hypoxemic Respiratory Failure Acute DVT Sepsis CHF Anemia Hyperkalemia Plan: Heather resolved hypernatremia resolved Obtain daily weights Strict I/O's daily Renally dose medications Avoid nephrotoxic agents Continue to monitor renal function Will sign off. Subjective Date of service: 11/17/21 Principal diagnosis: AHRF; Cardiac arrest; R. pneumothorax; pneumonia; AMS; DVT's; HEATHER; Obesity Interval history: remains to have SOB Objective - Vital Signs Vital signs: Vital Signs - 12hr 11/17/21 11/17/21 11/17/21 01:00 02:00 03:00 Temperature Pulse Rate 71 71 70 Pulse Rate [ From Monitor] Respiratory 28 H 30 H 33 H Rate Blood Pressure 139/78 149/79 142/78 O2 Sat by Pulse 98 99 98 Oximetry 11/17/21 11/17/21 11/17/21 04:00 05:00 05:19 Temperature 99.0 F Pulse Rate 71 71 77 Pulse Rate [ 94 H From Monitor] Respiratory 32 H 32 H 21 Rate Blood Pressure 143/73 143/77 143/77 O2 Sat by Pulse 97 97 100 Oximetry 11/17/21 11/17/21 11/17/21 06:00 07:19 10:59 Temperature 99.3 F Pulse Rate 72 86 Pulse Rate [ From Monitor] Respiratory 30 H Rate Blood Pressure 155/82 156/84 O2 Sat by Pulse 100 Oximetry 11/17/21 11/17/21 11:00 11:28 Temperature 99.4 F Pulse Rate 86 Pulse Rate [ From Monitor] Respiratory Rate Blood Pressure 156/84 O2 Sat by Pulse Oximetry - Lab 11/16/21 05:11 11/17/21 04:33 Most recent lab results ABG pH 7.475 pH Units (7.350-7.450) H 11/11/21 13:53 ABG pCO2 45.0 mm Hg 11/11/21 13:53 ABG pO2 64.1 mm Hg (80.0-90.0) L 11/11/21 13:53 ABG HCO3 32.4 mmol/L (20.0-26.0) H 11/11/21 13:53 ABG O2 Saturation 96.3 % (95.0-99.0) 11/11/21 13:53 Calcium 7.5 mg/dL (8.4-10.2) L 11/17/21 04:33 Phosphorus 3.20 mg/dL (2.5-4.5) D 11/14/21 04:55 Magnesium 2.20 mg/dL (1.7-2.3) 11/14/21 04:55 Urine Creatinine 190.9 mg/dL (0.1-20.0) H 11/04/21 Unknown Urine Sodium 10 mmol/L 11/04/21 Unknown Urine Total Protein 172 mg/dL (5-11.8) H 11/04/21 Unknown Medications & Allergies - Medications Allergies/Adverse Reactions: Allergies No Known Allergies Allergy (Verified 10/29/21 14:01) Home Medications: Home Medications Medication Instructions Recorded Confirmed Last Taken Type Unobtainable 11/10/21 11/10/21 Unknown History Active Medications: Generic Name Dose Route Start Last Admin Trade Name Freq PRN Reason Stop Dose Admin Acetaminophen 650 mg 10/29/21 17:04 11/12/21 22:53 Acetaminophen 650 Mg Rect Supp NM 650 mg Q6H PRN Administration Pain MILD(1-3)/Fever >100.5/NIEVES Alprazolam 0.25 mg 11/14/21 14:29 11/16/21 05:02 Alprazolam 0.25 Mg Tab PO 0.25 mg Q8H PRN Administration Anxiety Dextrose 0 ml 11/04/21 13:48 11/12/21 05:45 Dextrose 10% *Hypoglycemia IV 50 ml PRN PRN Administration Hypoglycemia Famotidine 10 mg 11/06/21 10:00 11/17/21 11:00 Famotidine 10 Mg Tab PO 10 mg BID RAMON Administration Furosemide 40 mg 11/17/21 10:00 11/17/21 11:03 Furosemide 40 Mg/4 Ml Inj IV 11/17/21 18:01 40 mg 0600,1800 RAMON Administration Hydrophilic Ointment 1 applic 10/29/21 14:29 11/09/21 08:51 Lip Therapy Vaseline TP 1 applic Q2HR PRN Administration Dry Lips Insulin Glargine 10 units 11/13/21 22:00 11/16/21 22:14 Insulin Glargine 100 Units/Ml SUB-Q 10 units QHS RAMON Administration Insulin Human Lispro 0 unit 10/30/21 16:00 11/17/21 06:26 Insulin Lispro 100 Unit/Ml SUB-Q Not Given Q6HR [facility] Protocol Metoprolol Tartrate 100 mg 11/16/21 22:00 11/17/21 10:59 Metoprolol Tartrate 100 Mg Tab PO 100 mg BID RAMON Administration Morphine Sulfate 2 mg 11/16/21 21:16 Morphine 4 Mg/1 Ml Inj IV Q3H PRN Pain, Moderate (4-6) Multi-Ingred Cream/Lotion/Oil/Oint 1 applic 10/29/21 14:29 11/06/21 09:25 Mineral Oil/Petrolatum, White Ophth Oint 3.5 Gm OU 1 applic Q4HR PRN Administration Dry Eye(s) Senna/Docusate Sodium 1 tab 11/16/21 22:00 11/17/21 11:02 Sennosides/Docusate Sodium 8.6/50 Mg Tab PO 1 tab BID RAMON Administration Sodium Chloride 10 ml 10/29/21 22:00 11/17/21 11:00 Sodium Chloride 0.9% 10 Ml Flush Syringe IV 10 ml BID RAMON Administration Sodium Chloride 10 ml 10/29/21 17:04 Sodium Chloride 0.9% 10 Ml Flush Syringe IV PRN PRN LINE FLUSH Spironolactone 25 mg 11/10/21 10:00 11/17/21 11:00 Spironolactone 25 Mg Tab PO 25 mg QDAY RAMON Administration
--- NOTE | 2021-11-17 13:16 | Progress Note ---
Assessment and Plan Acute hypoxemic respiratory failure on MVS Cardiac arrest with ROSC Acute DVT Right pneumothorax Shock (septic +/- cardiogenic) Possible aspiration pneumonia SIERRA Altered mental status/acute encephalopathy Elevated serum transaminases, likely shock liver Metabolic acidosis Obesity Retro-peritoneal Hematoma Leukocytosis Hypokalemia Lactic acidosis - great diuresis overnight - reduce Lasix to 40 mg IV daily from BID - repeat dopplers per vascular team recommendations +/- IVC filter - continue BIPAP scheduled qhs with prn daytime use - continue care as below otherwise; - continue to wean supplemental oxygen for target O2 sat's > 90% acutely - aspiration precautions - continue bronchodilators with pulmonary hygiene per RT - continue accuchecks with glycemic control per SSI for target blood glucose < 180 mg/dL - avoid nephrotoxins, renally dose all medications - continue to avoid benzodiazepine's, reduce the possibility of delirium - AB's per ID rec's - prn analgesia per pain score - Maintenance of sleep-wake cycle, avoid delirium - G.I. & VTE prophylaxis - PT/OT/ROM exercises - continue mobility protocols for pressure ulcer prophylaxis - Monitor hemodynamics closely - continue other care per attending / other consultants - discharge planning ongoing concurrently COVID SPECIFIC INTERVENTIONS - COVID-19 PCR negative .... Re-evaluate in am & prn Subjective Date of service: 11/17/21 Principal diagnosis: AHRF; Cardiac arrest; R. pneumothorax; pneumonia; AMS; DVT's; SIERRA; Obesity Interval history: Patient is seen today for: Acute hypoxemic respiratory failure; Cardiac arrest with ROSC; Right pneumothorax; pneumonia; AMS; bilateral DVT's; SIERRA; Obesity Seen and examined at bedside; 24hour events reviewed; nursing and respiratory care staff consulted; no adverse overnight events reported to me; resting in bed; complains of feeling hot today; much more coherent; complained of LLExt pain; no N/V/F/C Objective Vital Signs - 12hr 11/17/21 11/17/21 11/17/21 02:00 03:00 04:00 Temperature 99.0 F Pulse Rate 71 70 71 Pulse Rate [ 94 H From Monitor] Respiratory 30 H 33 H 32 H Rate Blood Pressure 149/79 142/78 143/73 O2 Sat by Pulse 99 98 97 Oximetry 11/17/21 11/17/21 11/17/21 05:00 05:19 06:00 Temperature Pulse Rate 71 77 72 Pulse Rate [ From Monitor] Respiratory 32 H 21 30 H Rate Blood Pressure 143/77 143/77 155/82 O2 Sat by Pulse 97 100 100 Oximetry 11/17/21 11/17/21 11/17/21 07:19 10:59 11:00 Temperature 99.3 F Pulse Rate 86 86 Pulse Rate [ From Monitor] Respiratory Rate Blood Pressure 156/84 156/84 O2 Sat by Pulse Oximetry 11/17/21 11:28 Temperature 99.4 F Pulse Rate Pulse Rate [ From Monitor] Respiratory Rate Blood Pressure O2 Sat by Pulse Oximetry Constitutional: appears uncomfortable, other (elderly obese female with mildly increased respiratory effort at rest on BIPAP) Eyes: non-icteric, other (+ mild periorbital phymosis) ENT: oropharynx moist Neck: supple, no lymphadenopathy, no JVD, other (large circumference) Effort: mildly labored Ascultation: Bilateral: diminished breath sounds, rhonchi (scant) Percussion: Bilateral: not dull Cardiovascular: irregular rhythm, other (no R/M) Gastrointestinal: normoactive bowel sounds, soft, non-tender, other (obese) Integumentary: normal, other (Left flank ecchymosis with induration) Extremities: no cyanosis, pulses normal, no ischemia or petechiae, edema (2+) Neurologic: normal mental status, non-focal exam (grossly), pupils equal and round, motor strength normal and (weak) Psychiatric: mood appropriate, affect normal CBC and BMP: 11/16/21 05:11 11/17/21 04:33 ABG, PT/INR, D-dimer: ABG ABG pH 7.475 pH Units (7.350-7.450) H 11/11/21 13:53 ABG pCO2 45.0 mm Hg 11/11/21 13:53 ABG pO2 64.1 mm Hg (80.0-90.0) L 11/11/21 13:53 ABG O2 Saturation 96.3 % (95.0-99.0) 11/11/21 13:53 PT/INR, D-dimer PT 17.2 Sec. (12.2-14.9) H 10/30/21 16:30 INR 1.27 (0.87-1.13) H 10/30/21 16:30 D-Dimer > 61888 ng/mlDDU (0-234) H 10/30/21 Unknown Abnormal lab findings: Abnormal Labs 10/29/21 10/29/21 10/29/21 15:10 15:10 15:10 WBC 27.8 H RBC Hgb Hct MCH 27 L RDW Plt Count Lymph % (Auto) [place] % (Auto) Lymph # (Auto) [place] # (Auto) Seg Neutrophils % Seg Neuts % (Manual) 78.0 H Lymphocytes % (Manual) 10.0 L Nucleated RBC % Seg Neutrophils # Seg Neutrophils # Man 21.7 H Monocytes # (Manual) 1.4 H PT INR APTT D-Dimer Heparin Anti-Xa Level ABG pH ABG pO2 ABG HCO3 ABG O2 Saturation ABG Base Excess ABG Hemoglobin Oxyhemoglobin Sodium Potassium Chloride Carbon Dioxide BUN Creatinine Glucose POC Glucose Hemoglobin A1c Lactic Acid 6.80 H* Calcium Phosphorus Magnesium Ferritin AST ALT Alkaline Phosphatase Lactate Dehydrogenase Troponin T 0.089 H C-Reactive Protein Total Protein Albumin LDL Cholesterol Direct Urine Creatinine Urine Total Protein Salicylates Acetaminophen Crossmatch 10/29/21 10/29/21 10/29/21 15:10 15:10 15:10 WBC RBC Hgb Hct MCH RDW Plt Count Lymph % (Auto) [place] % (Auto) Lymph # (Auto) [place] # (Auto) Seg Neutrophils % Seg Neuts % (Manual) Lymphocytes % (Manual) Nucleated RBC % Seg Neutrophils # Seg Neutrophils # Man Monocytes # (Manual) PT INR APTT D-Dimer Heparin Anti-Xa Level ABG pH ABG pO2 ABG HCO3 ABG O2 Saturation ABG Base Excess ABG Hemoglobin Oxyhemoglobin Sodium 136 L Potassium 2.8 L* Chloride 93.4 L Carbon Dioxide 20 L BUN Creatinine Glucose 330 H POC Glucose Hemoglobin A1c Lactic Acid Calcium Phosphorus Magnesium Ferritin AST 1013 H ALT 1289 H Alkaline Phosphatase 246 H Lactate Dehydrogenase Troponin T C-Reactive Protein Total Protein Albumin LDL Cholesterol Direct Urine Creatinine Urine Total Protein Salicylates < 0.3 L Acetaminophen 5.0 L Crossmatch 10/29/21 10/29/21 10/29/21 15:11 16:01 19:29 WBC RBC Hgb Hct MCH RDW Plt Count Lymph % (Auto) [place] % (Auto) Lymph # (Auto) [place] # (Auto) Seg Neutrophils % Seg Neuts % (Manual) Lymphocytes % (Manual) Nucleated RBC % Seg Neutrophils # Seg Neutrophils # Man Monocytes # (Manual) PT INR APTT D-Dimer Heparin Anti-Xa Level ABG pH 7.307 L ABG pO2 64.1 L ABG HCO3 ABG O2 Saturation 90.8 L ABG Base Excess -2.9 L ABG Hemoglobin Oxyhemoglobin 89.3 L Sodium Potassium Chloride Carbon Dioxide BUN Creatinine Glucose POC Glucose Hemoglobin A1c Lactic Acid 2.60 H* Calcium Phosphorus Magnesium 2.90 H Ferritin AST ALT Alkaline Phosphatase Lactate Dehydrogenase Troponin T C-Reactive Protein Total Protein Albumin LDL Cholesterol Direct Urine Creatinine Urine Total Protein Salicylates Acetaminophen Crossmatch 10/29/21 10/29/21 10/30/21 19:40 22:34 04:30 WBC 16.2 H RBC Hgb Hct MCH 26 L RDW 15.5 H Plt Count Lymph % (Auto) 6.2 L [place] % (Auto) Lymph # (Auto) 1.0 L [place] # (Auto) 0.9 H Seg Neutrophils % 88.1 H Seg Neuts % (Manual) Lymphocytes % (Manual) Nucleated RBC % Seg Neutrophils # 14.2 H Seg Neutrophils # Man Monocytes # (Manual) PT INR APTT D-Dimer Heparin Anti-Xa Level ABG pH ABG pO2 ABG HCO3 ABG O2 Saturation ABG Base Excess ABG Hemoglobin Oxyhemoglobin Sodium Potassium Chloride Carbon Dioxide BUN Creatinine Glucose POC Glucose Hemoglobin A1c Lactic Acid Calcium Phosphorus Magnesium Ferritin AST ALT Alkaline Phosphatase Lactate Dehydrogenase Troponin T 1.950 H* D 1.150 H* D C-Reactive Protein Total Protein Albumin LDL Cholesterol Direct 43 L Urine Creatinine Urine Total Protein Salicylates Acetaminophen Crossmatch 10/30/21 10/30/21 10/30/21 04:30 04:35 05:45 WBC RBC Hgb Hct MCH RDW Plt Count Lymph % (Auto) [place] % (Auto) Lymph # (Auto) [place] # (Auto) Seg Neutrophils % Seg Neuts % (Manual) Lymphocytes % (Manual) Nucleated RBC % Seg Neutrophils # Seg Neutrophils # Man Monocytes # (Manual) PT INR APTT D-Dimer Heparin Anti-Xa Level ABG pH ABG pO2 69.5 L ABG HCO3 ABG O2 Saturation ABG Base Excess -2.7 L ABG Hemoglobin Oxyhemoglobin 94.7 L Sodium Potassium Chloride Carbon Dioxide 21 L BUN Creatinine Glucose 159 H POC Glucose 151 H Hemoglobin A1c Lactic Acid Calcium 7.9 L D Phosphorus Magnesium Ferritin AST 461 H ALT 686 H Alkaline Phosphatase 130 H Lactate Dehydrogenase Troponin T C-Reactive Protein Total Protein 5.6 L D Albumin 3.2 L LDL Cholesterol Direct Urine Creatinine Urine Total Protein Salicylates Acetaminophen Crossmatch 10/30/21 10/30/21 10/30/21 11:24 15:59 16:30 WBC RBC Hgb Hct MCH RDW Plt Count Lymph % (Auto) [place] % (Auto) Lymph # (Auto) [place] # (Auto) Seg Neutrophils % Seg Neuts % (Manual) Lymphocytes % (Manual) Nucleated RBC % Seg Neutrophils # Seg Neutrophils # Man Monocytes # (Manual) PT 17.2 H INR 1.27 H APTT 44.4 H D-Dimer Heparin Anti-Xa Level ABG pH ABG pO2 ABG HCO3 ABG O2 Saturation ABG Base Excess ABG Hemoglobin Oxyhemoglobin Sodium Potassium Chloride Carbon Dioxide BUN Creatinine Glucose POC Glucose 153 H 109 H Hemoglobin A1c Lactic Acid Calcium Phosphorus Magnesium Ferritin AST ALT Alkaline Phosphatase Lactate Dehydrogenase Troponin T C-Reactive Protein Total Protein Albumin LDL Cholesterol Direct Urine Creatinine Urine Total Protein Salicylates Acetaminophen Crossmatch 10/30/21 10/30/21 10/30/21 23:00 Unknown Unknown WBC RBC Hgb Hct MCH RDW Plt Count Lymph % (Auto) [place] % (Auto) Lymph # (Auto) [place] # (Auto) Seg Neutrophils % Seg Neuts % (Manual) Lymphocytes % (Manual) Nucleated RBC % Seg Neutrophils # Seg Neutrophils # Man Monocytes # (Manual) PT INR APTT D-Dimer > 30830 H Heparin Anti-Xa Level 0.82 H ABG pH ABG pO2 ABG HCO3 ABG O2 Saturation ABG Base Excess ABG Hemoglobin Oxyhemoglobin Sodium Potassium Chloride Carbon Dioxide BUN Creatinine Glucose POC Glucose Hemoglobin A1c Lactic Acid Calcium Phosphorus Magnesium Ferritin 208.4 H AST ALT Alkaline Phosphatase Lactate Dehydrogenase Troponin T C-Reactive Protein Total Protein Albumin LDL Cholesterol Direct Urine Creatinine Urine Total Protein Salicylates Acetaminophen Crossmatch 10/30/21 10/31/21 10/31/21 Unknown 04:30 04:30 WBC 14.4 H RBC Hgb Hct MCH 26 L RDW Plt Count Lymph % (Auto) [place] % (Auto) Lymph # (Auto) [place] # (Auto) Seg Neutrophils % Seg Neuts % (Manual) Lymphocytes % (Manual) Nucleated RBC % Seg Neutrophils # Seg Neutrophils # Man Monocytes # (Manual) PT INR APTT D-Dimer Heparin Anti-Xa Level ABG pH ABG pO2 ABG HCO3 ABG O2 Saturation ABG Base Excess ABG Hemoglobin Oxyhemoglobin Sodium Potassium 3.5 L Chloride 107.5 H Carbon Dioxide 20 L BUN 28 H Creatinine 1.7 H Glucose 113 H POC Glucose Hemoglobin A1c Lactic Acid Calcium 7.9 L Phosphorus Magnesium Ferritin AST ALT Alkaline Phosphatase Lactate Dehydrogenase 469 H Troponin T C-Reactive Protein 13.40 H Total Protein Albumin LDL Cholesterol Direct Urine Creatinine Urine Total Protein Salicylates Acetaminophen Crossmatch 10/31/21 10/31/21 10/31/21 04:30 05:11 15:30 WBC RBC Hgb Hct MCH RDW Plt Count Lymph % (Auto) [place] % (Auto) Lymph # (Auto) [place] # (Auto) Seg Neutrophils % Seg Neuts % (Manual) Lymphocytes % (Manual) Nucleated RBC % Seg Neutrophils # Seg Neutrophils # Man Monocytes # (Manual) PT INR APTT D-Dimer Heparin Anti-Xa Level ABG pH 7.222 L ABG pO2 61.5 L ABG HCO3 ABG O2 Saturation 86.2 L ABG Base Excess -6.3 L ABG Hemoglobin 11.2 L Oxyhemoglobin 84.5 L Sodium Potassium Chloride Carbon Dioxide BUN Creatinine Glucose POC Glucose 106 H Hemoglobin A1c 6.7 H Lactic Acid Calcium Phosphorus Magnesium Ferritin AST ALT Alkaline Phosphatase Lactate Dehydrogenase Troponin T C-Reactive Protein Total Protein Albumin LDL Cholesterol Direct Urine Creatinine Urine Total Protein Salicylates Acetaminophen Crossmatch 10/31/21 10/31/21 10/31/21 16:07 16:35 17:45 WBC RBC Hgb Hct MCH RDW Plt Count Lymph % (Auto) [place] % (Auto) Lymph # (Auto) [place] # (Auto) Seg Neutrophils % Seg Neuts % (Manual) Lymphocytes % (Manual) Nucleated RBC % Seg Neutrophils # Seg Neutrophils # Man Monocytes # (Manual) PT INR APTT D-Dimer Heparin Anti-Xa Level ABG pH 7.267 L ABG pO2 58.3 L ABG HCO3 ABG O2 Saturation 88.3 L ABG Base Excess -5.9 L ABG Hemoglobin 10.1 L Oxyhemoglobin 86.5 L Sodium Potassium Chloride Carbon Dioxide BUN Creatinine Glucose POC Glucose 115 H Hemoglobin A1c Lactic Acid Calcium Phosphorus Magnesium Ferritin AST ALT Alkaline Phosphatase Lactate Dehydrogenase Troponin T C-Reactive Protein Total Protein Albumin LDL Cholesterol Direct Urine Creatinine 383.6 H Urine Total Protein Salicylates Acetaminophen Crossmatch 11/01/21 11/01/21 11/01/21 00:06 05:08 06:00 WBC 12.6 H RBC 3.43 L Hgb 8.9 L Hct 28.7 L MCH 26 L RDW 15.7 H Plt Count 130 L Lymph % (Auto) [place] % (Auto) Lymph # (Auto) [place] # (Auto) Seg Neutrophils % Seg Neuts % (Manual) Lymphocytes % (Manual) Nucleated RBC % Seg Neutrophils # Seg Neutrophils # Man Monocytes # (Manual) PT INR APTT D-Dimer Heparin Anti-Xa Level ABG pH ABG pO2 ABG HCO3 ABG O2 Saturation ABG Base Excess ABG Hemoglobin Oxyhemoglobin Sodium Potassium Chloride Carbon Dioxide BUN Creatinine Glucose POC Glucose 114 H 120 H Hemoglobin A1c Lactic Acid Calcium Phosphorus Magnesium Ferritin AST ALT Alkaline Phosphatase Lactate Dehydrogenase Troponin T C-Reactive Protein Total Protein Albumin LDL Cholesterol Direct Urine Creatinine Urine Total Protein Salicylates Acetaminophen Crossmatch 11/01/21 11/01/21 11/01/21 06:00 11:43 14:00 WBC RBC Hgb Hct MCH RDW Plt Count Lymph % (Auto) [place] % (Auto) Lymph # (Auto) [place] # (Auto) Seg Neutrophils % Seg Neuts % (Manual) Lymphocytes % (Manual) Nucleated RBC % Seg Neutrophils # Seg Neutrophils # Man Monocytes # (Manual) PT INR APTT D-Dimer Heparin Anti-Xa Level ABG pH 7.349 L ABG pO2 75.6 L ABG HCO3 ABG O2 Saturation ABG Base Excess -3.9 L ABG Hemoglobin 9.8 L Oxyhemoglobin 93.5 L Sodium Potassium Chloride 114.1 H Carbon Dioxide 20 L BUN 33 H Creatinine Glucose 131 H POC Glucose 151 H Hemoglobin A1c Lactic Acid Calcium 7.7 L Phosphorus Magnesium Ferritin AST 79 H ALT 259 H Alkaline Phosphatase Lactate Dehydrogenase Troponin T C-Reactive Protein Total Protein 5.5 L Albumin 2.7 L LDL Cholesterol Direct Urine Creatinine Urine Total Protein Salicylates Acetaminophen Crossmatch 11/01/21 11/01/21 11/02/21 16:45 22:55 05:12 WBC RBC Hgb Hct MCH RDW Plt Count Lymph % (Auto) [place] % (Auto) Lymph # (Auto) [place] # (Auto) Seg Neutrophils % Seg Neuts % (Manual) Lymphocytes % (Manual) Nucleated RBC % Seg Neutrophils # Seg Neutrophils # Man Monocytes # (Manual) PT INR APTT D-Dimer Heparin Anti-Xa Level ABG pH ABG pO2 ABG HCO3 ABG O2 Saturation ABG Base Excess ABG Hemoglobin Oxyhemoglobin Sodium Potassium Chloride Carbon Dioxide BUN Creatinine Glucose POC Glucose 119 H 129 H 140 H Hemoglobin A1c Lactic Acid Calcium Phosphorus Magnesium Ferritin AST ALT Alkaline Phosphatase Lactate Dehydrogenase Troponin T C-Reactive Protein Total Protein Albumin LDL Cholesterol Direct Urine Creatinine Urine Total Protein Salicylates Acetaminophen Crossmatch 11/02/21 11/02/21 11/02/21 05:35 05:35 09:35 WBC 13.5 H RBC 3.60 L Hgb 9.7 L Hct MCH 27 L RDW 15.7 H Plt Count Lymph % (Auto) [place] % (Auto) Lymph # (Auto) [place] # (Auto) Seg Neutrophils % Seg Neuts % (Manual) Lymphocytes % (Manual) Nucleated RBC % Seg Neutrophils # Seg Neutrophils # Man Monocytes # (Manual) PT INR APTT D-Dimer Heparin Anti-Xa Level ABG pH 7.208 L ABG pO2 75.9 L ABG HCO3 ABG O2 Saturation 93.6 L ABG Base Excess -4.3 L ABG Hemoglobin 9.1 L Oxyhemoglobin 91.6 L Sodium Potassium 5.2 H D Chloride 112.6 H Carbon Dioxide BUN 32 H Creatinine Glucose 152 H POC Glucose Hemoglobin A1c Lactic Acid Calcium 8.2 L Phosphorus Magnesium 2.70 H Ferritin AST ALT Alkaline Phosphatase Lactate Dehydrogenase Troponin T C-Reactive Protein Total Protein Albumin LDL Cholesterol Direct Urine Creatinine Urine Total Protein Salicylates Acetaminophen Crossmatch 11/02/21 11/02/21 11/02/21 11:44 17:13 23:43 WBC RBC Hgb Hct MCH RDW Plt Count Lymph % (Auto) [place] % (Auto) Lymph # (Auto) [place] # (Auto) Seg Neutrophils % Seg Neuts % (Manual) Lymphocytes % (Manual) Nucleated RBC % Seg Neutrophils # Seg Neutrophils # Man Monocytes # (Manual) PT INR APTT D-Dimer Heparin Anti-Xa Level ABG pH ABG pO2 ABG HCO3 ABG O2 Saturation ABG Base Excess ABG Hemoglobin Oxyhemoglobin Sodium Potassium Chloride Carbon Dioxide BUN Creatinine Glucose POC Glucose 173 H 148 H 137 H Hemoglobin A1c Lactic Acid Calcium Phosphorus Magnesium Ferritin AST ALT Alkaline Phosphatase Lactate Dehydrogenase Troponin T C-Reactive Protein Total Protein Albumin LDL Cholesterol Direct Urine Creatinine Urine Total Protein Salicylates Acetaminophen Crossmatch 11/03/21 11/03/21 11/03/21 04:59 06:00 06:00 WBC RBC 3.43 L Hgb 9.1 L Hct 29.0 L MCH 26 L RDW 16.4 H Plt Count Lymph % (Auto) [place] % (Auto) Lymph # (Auto) [place] # (Auto) Seg Neutrophils % Seg Neuts % (Manual) Lymphocytes % (Manual) Nucleated RBC % Seg Neutrophils # Seg Neutrophils # Man Monocytes # (Manual) PT INR APTT D-Dimer Heparin Anti-Xa Level 0.17 L ABG pH ABG pO2 ABG HCO3 ABG O2 Saturation ABG Base Excess ABG Hemoglobin Oxyhemoglobin Sodium Potassium Chloride Carbon Dioxide BUN Creatinine Glucose POC Glucose 167 H Hemoglobin A1c Lactic Acid Calcium Phosphorus Magnesium Ferritin AST ALT Alkaline Phosphatase Lactate Dehydrogenase Troponin T C-Reactive Protein Total Protein Albumin LDL Cholesterol Direct Urine Creatinine Urine Total Protein Salicylates Acetaminophen Crossmatch 11/03/21 11/03/21 11/03/21 06:00 09:20 11:58 WBC RBC Hgb Hct MCH RDW Plt Count Lymph % (Auto) [place] % (Auto) Lymph # (Auto) [place] # (Auto) Seg Neutrophils % Seg Neuts % (Manual) Lymphocytes % (Manual) Nucleated RBC % Seg Neutrophils # Seg Neutrophils # Man Monocytes # (Manual) PT INR APTT D-Dimer Heparin Anti-Xa Level ABG pH 7.274 L ABG pO2 75.6 L ABG HCO3 ABG O2 Saturation 94.9 L ABG Base Excess -2.5 L ABG Hemoglobin 9.3 L Oxyhemoglobin 92.9 L Sodium 149 H Potassium Chloride 117.5 H Carbon Dioxide BUN 32 H Creatinine Glucose 173 H POC Glucose 192 H Hemoglobin A1c Lactic Acid Calcium 8.1 L Phosphorus Magnesium Ferritin AST ALT Alkaline Phosphatase Lactate Dehydrogenase Troponin T C-Reactive Protein Total Protein Albumin LDL Cholesterol Direct Urine Creatinine Urine Total Protein Salicylates Acetaminophen Crossmatch 11/03/21 11/03/21 11/04/21 18:22 Unknown 00:09 WBC RBC Hgb Hct MCH RDW Plt Count Lymph % (Auto) [place] % (Auto) Lymph # (Auto) [place] # (Auto) Seg Neutrophils % Seg Neuts % (Manual) Lymphocytes % (Manual) Nucleated RBC % Seg Neutrophils # Seg Neutrophils # Man Monocytes # (Manual) PT INR APTT D-Dimer Heparin Anti-Xa Level 0.29 L ABG pH ABG pO2 ABG HCO3 ABG O2 Saturation ABG Base Excess ABG Hemoglobin Oxyhemoglobin Sodium Potassium Chloride Carbon Dioxide BUN Creatinine Glucose POC Glucose 178 H 221 H Hemoglobin A1c Lactic Acid Calcium Phosphorus Magnesium Ferritin AST ALT Alkaline Phosphatase Lactate Dehydrogenase Troponin T C-Reactive Protein Total Protein Albumin LDL Cholesterol Direct Urine Creatinine Urine Total Protein Salicylates Acetaminophen Crossmatch 11/04/21 11/04/21 11/04/21 05:09 09:40 09:40 WBC 16.8 H RBC Hgb Hct MCH 27 L RDW 16.5 H Plt Count Lymph % (Auto) [place] % (Auto) Lymph # (Auto) [place] # (Auto) Seg Neutrophils % Seg Neuts % (Manual) Lymphocytes % (Manual) Nucleated RBC % Seg Neutrophils # Seg Neutrophils # Man Monocytes # (Manual) PT INR APTT D-Dimer Heparin Anti-Xa Level ABG pH ABG pO2 ABG HCO3 ABG O2 Saturation ABG Base Excess ABG Hemoglobin Oxyhemoglobin Sodium Potassium 5.9 H Chloride 108.5 H Carbon Dioxide BUN 54 H Creatinine 1.8 H Glucose 198 H POC Glucose 182 H Hemoglobin A1c Lactic Acid Calcium Phosphorus Magnesium 3.00 H Ferritin AST ALT Alkaline Phosphatase Lactate Dehydrogenase Troponin T C-Reactive Protein Total Protein Albumin LDL Cholesterol Direct Urine Creatinine Urine Total Protein Salicylates Acetaminophen Crossmatch 11/04/21 11/04/21 11/04/21 12:13 13:34 14:05 WBC RBC Hgb Hct MCH RDW Plt Count Lymph % (Auto) [place] % (Auto) Lymph # (Auto) [place] # (Auto) Seg Neutrophils % Seg Neuts % (Manual) Lymphocytes % (Manual) Nucleated RBC % Seg Neutrophils # Seg Neutrophils # Man Monocytes # (Manual) PT INR APTT D-Dimer Heparin Anti-Xa Level ABG pH 7.223 L ABG pO2 71.3 L ABG HCO3 ABG O2 Saturation 92.8 L ABG Base Excess ABG Hemoglobin 8.2 L Oxyhemoglobin 91.0 L Sodium Potassium Chloride Carbon Dioxide BUN Creatinine Glucose POC Glucose 184 H Hemoglobin A1c Lactic Acid Calcium Phosphorus Magnesium Ferritin AST ALT Alkaline Phosphatase Lactate Dehydrogenase Troponin T C-Reactive Protein Total Protein Albumin LDL Cholesterol Direct Urine Creatinine 184.6 H Urine Total Protein Salicylates Acetaminophen Crossmatch 11/04/21 11/04/21 11/05/21 18:02 Unknown 00:07 WBC RBC Hgb Hct MCH RDW Plt Count Lymph % (Auto) [place] % (Auto) Lymph # (Auto) [place] # (Auto) Seg Neutrophils % Seg Neuts % (Manual) Lymphocytes % (Manual) Nucleated RBC % Seg Neutrophils # Seg Neutrophils # Man Monocytes # (Manual) PT INR APTT D-Dimer Heparin Anti-Xa Level ABG pH ABG pO2 ABG HCO3 ABG O2 Saturation ABG Base Excess ABG Hemoglobin Oxyhemoglobin Sodium Potassium Chloride Carbon Dioxide BUN Creatinine Glucose POC Glucose 262 H 259 H Hemoglobin A1c Lactic Acid Calcium Phosphorus Magnesium Ferritin AST ALT Alkaline Phosphatase Lactate Dehydrogenase Troponin T C-Reactive Protein Total Protein Albumin LDL Cholesterol Direct Urine Creatinine 190.9 H Urine Total Protein 172 H Salicylates Acetaminophen Crossmatch 11/05/21 11/05/21 11/05/21 04:20 04:20 05:30 WBC 17.9 H RBC 3.64 L Hgb 9.7 L Hct MCH 27 L RDW 16.4 H Plt Count Lymph % (Auto) [place] % (Auto) Lymph # (Auto) [place] # (Auto) Seg Neutrophils % Seg Neuts % (Manual) Lymphocytes % (Manual) Nucleated RBC % Seg Neutrophils # Seg Neutrophils # Man Monocytes # (Manual) PT INR APTT D-Dimer Heparin Anti-Xa Level ABG pH ABG pO2 ABG HCO3 ABG O2 Saturation ABG Base Excess ABG Hemoglobin Oxyhemoglobin Sodium Potassium 5.6 H Chloride 108.4 H Carbon Dioxide BUN 71 H Creatinine 1.9 H Glucose 270 H POC Glucose 283 H Hemoglobin A1c Lactic Acid Calcium Phosphorus Magnesium Ferritin AST ALT Alkaline Phosphatase Lactate Dehydrogenase Troponin T C-Reactive Protein Total Protein Albumin LDL Cholesterol Direct Urine Creatinine Urine Total Protein Salicylates Acetaminophen Crossmatch 11/05/21 11/05/21 11/05/21 10:05 12:10 15:29 WBC RBC Hgb Hct MCH RDW Plt Count Lymph % (Auto) [place] % (Auto) Lymph # (Auto) [place] # (Auto) Seg Neutrophils % Seg Neuts % (Manual) Lymphocytes % (Manual) Nucleated RBC % Seg Neutrophils # Seg Neutrophils # Man Monocytes # (Manual) PT INR APTT D-Dimer Heparin Anti-Xa Level ABG pH 7.248 L ABG pO2 73.7 L ABG HCO3 26.2 H ABG O2 Saturation 93.1 L ABG Base Excess ABG Hemoglobin 8.9 L Oxyhemoglobin 91.4 L Sodium Potassium Chloride Carbon Dioxide BUN Creatinine Glucose POC Glucose 225 H 199 H Hemoglobin A1c Lactic Acid Calcium Phosphorus Magnesium Ferritin AST ALT Alkaline Phosphatase Lactate Dehydrogenase Troponin T C-Reactive Protein Total Protein Albumin LDL Cholesterol Direct Urine Creatinine Urine Total Protein Salicylates Acetaminophen Crossmatch 11/05/21 11/05/21 11/05/21 15:51 17:32 17:40 WBC RBC Hgb Hct MCH RDW Plt Count Lymph % (Auto) [place] % (Auto) Lymph # (Auto) [place] # (Auto) Seg Neutrophils % Seg Neuts % (Manual) Lymphocytes % (Manual) Nucleated RBC % Seg Neutrophils # Seg Neutrophils # Man Monocytes # (Manual) PT INR APTT D-Dimer Heparin Anti-Xa Level ABG pH ABG pO2 ABG HCO3 ABG O2 Saturation ABG Base Excess ABG Hemoglobin Oxyhemoglobin Sodium Potassium 5.2 H Chloride 107.8 H Carbon Dioxide BUN 79 H Creatinine 1.9 H Glucose 204 H POC Glucose 278 H 197 H Hemoglobin A1c Lactic Acid Calcium Phosphorus Magnesium Ferritin AST ALT Alkaline Phosphatase Lactate Dehydrogenase Troponin T C-Reactive Protein Total Protein Albumin LDL Cholesterol Direct Urine Creatinine Urine Total Protein Salicylates Acetaminophen Crossmatch 11/05/21 11/05/21 11/05/21 21:25 22:22 23:43 WBC RBC Hgb Hct MCH RDW Plt Count Lymph % (Auto) [place] % (Auto) Lymph # (Auto) [place] # (Auto) Seg Neutrophils % Seg Neuts % (Manual) Lymphocytes % (Manual) Nucleated RBC % Seg Neutrophils # Seg Neutrophils # Man Monocytes # (Manual) PT INR APTT D-Dimer Heparin Anti-Xa Level ABG pH ABG pO2 ABG HCO3 ABG O2 Saturation ABG Base Excess ABG Hemoglobin Oxyhemoglobin Sodium Potassium 5.3 H Chloride 109.2 H Carbon Dioxide BUN 81 H Creatinine 2.0 H Glucose 195 H POC Glucose 180 H 203 H Hemoglobin A1c Lactic Acid Calcium Phosphorus Magnesium Ferritin AST ALT Alkaline Phosphatase Lactate Dehydrogenase Troponin T C-Reactive Protein Total Protein Albumin LDL Cholesterol Direct Urine Creatinine Urine Total Protein Salicylates Acetaminophen Crossmatch 11/05/21 11/06/21 11/06/21 Unknown 02:35 05:09 WBC RBC Hgb Hct MCH RDW Plt Count Lymph % (Auto) [place] % (Auto) Lymph # (Auto) [place] # (Auto) Seg Neutrophils % Seg Neuts % (Manual) Lymphocytes % (Manual) Nucleated RBC % Seg Neutrophils # Seg Neutrophils # Man Monocytes # (Manual) PT INR APTT D-Dimer Heparin Anti-Xa Level ABG pH ABG pO2 ABG HCO3 ABG O2 Saturation ABG Base Excess ABG Hemoglobin Oxyhemoglobin Sodium 146 H Potassium 6.0 H Chloride 108.1 H 107.1 H Carbon Dioxide 21 L BUN 80 H 84 H Creatinine 2.0 H 2.0 H Glucose 238 H 235 H POC Glucose 215 H Hemoglobin A1c Lactic Acid Calcium Phosphorus Magnesium 2.80 H Ferritin AST ALT 77 H Alkaline Phosphatase Lactate Dehydrogenase Troponin T C-Reactive Protein Total Protein Albumin 3.0 L LDL Cholesterol Direct Urine Creatinine Urine Total Protein Salicylates Acetaminophen Crossmatch 11/06/21 11/06/21 11/06/21 05:40 08:07 08:07 WBC RBC Hgb Hct MCH RDW Plt Count Lymph % (Auto) [place] % (Auto) Lymph # (Auto) [place] # (Auto) Seg Neutrophils % Seg Neuts % (Manual) Lymphocytes % (Manual) Nucleated RBC % Seg Neutrophils # Seg Neutrophils # Man Monocytes # (Manual) PT INR APTT D-Dimer Heparin Anti-Xa Level 1.24 H ABG pH 7.311 L ABG pO2 72.8 L ABG HCO3 29.7 H ABG O2 Saturation 94.1 L ABG Base Excess ABG Hemoglobin 11.4 L Oxyhemoglobin 92.3 L Sodium Potassium 5.2 H Chloride Carbon Dioxide BUN 85 H Creatinine 2.3 H Glucose 236 H POC Glucose Hemoglobin A1c Lactic Acid Calcium Phosphorus Magnesium Ferritin AST ALT Alkaline Phosphatase Lactate Dehydrogenase Troponin T C-Reactive Protein Total Protein Albumin LDL Cholesterol Direct Urine Creatinine Urine Total Protein Salicylates Acetaminophen Crossmatch 11/06/21 11/06/21 11/06/21 12:14 12:57 14:28 WBC RBC Hgb Hct MCH RDW Plt Count Lymph % (Auto) [place] % (Auto) Lymph # (Auto) [place] # (Auto) Seg Neutrophils % Seg Neuts % (Manual) Lymphocytes % (Manual) Nucleated RBC % Seg Neutrophils # Seg Neutrophils # Man Monocytes # (Manual) PT INR APTT D-Dimer Heparin Anti-Xa Level ABG pH 7.282 L ABG pO2 72.6 L ABG HCO3 30.8 H ABG O2 Saturation 93.7 L ABG Base Excess 3.2 H ABG Hemoglobin 8.6 L Oxyhemoglobin 91.8 L Sodium Potassium Chloride Carbon Dioxide BUN 91 H Creatinine 2.6 H Glucose 259 H POC Glucose 225 H Hemoglobin A1c Lactic Acid Calcium Phosphorus Magnesium Ferritin AST ALT Alkaline Phosphatase Lactate Dehydrogenase Troponin T C-Reactive Protein Total Protein Albumin LDL Cholesterol Direct Urine Creatinine Urine Total Protein Salicylates Acetaminophen Crossmatch 11/06/21 11/06/21 11/06/21 17:28 19:20 21:30 WBC RBC Hgb Hct MCH RDW Plt Count Lymph % (Auto) [place] % (Auto) Lymph # (Auto) [place] # (Auto) Seg Neutrophils % Seg Neuts % (Manual) Lymphocytes % (Manual) Nucleated RBC % Seg Neutrophils # Seg Neutrophils # Man Monocytes # (Manual) PT INR APTT D-Dimer Heparin Anti-Xa Level 0.73 H ABG pH ABG pO2 ABG HCO3 ABG O2 Saturation ABG Base Excess ABG Hemoglobin Oxyhemoglobin Sodium Potassium Chloride Carbon Dioxide BUN 95 H Creatinine 2.9 H Glucose 233 H POC Glucose 206 H Hemoglobin A1c Lactic Acid Calcium Phosphorus Magnesium Ferritin AST ALT Alkaline Phosphatase Lactate Dehydrogenase Troponin T C-Reactive Protein Total Protein Albumin LDL Cholesterol Direct Urine Creatinine Urine Total Protein Salicylates Acetaminophen Crossmatch 11/06/21 11/07/21 11/07/21 22:56 05:06 06:30 WBC RBC Hgb Hct MCH RDW Plt Count Lymph % (Auto) [place] % (Auto) Lymph # (Auto) [place] # (Auto) Seg Neutrophils % Seg Neuts % (Manual) Lymphocytes % (Manual) Nucleated RBC % Seg Neutrophils # Seg Neutrophils # Man Monocytes # (Manual) PT INR APTT D-Dimer Heparin Anti-Xa Level ABG pH ABG pO2 ABG HCO3 ABG O2 Saturation ABG Base Excess ABG Hemoglobin Oxyhemoglobin Sodium 146 H Potassium Chloride Carbon Dioxide BUN 98 H Creatinine 2.8 H Glucose 202 H POC Glucose 215 H 172 H Hemoglobin A1c Lactic Acid Calcium Phosphorus 4.90 H D Magnesium 2.90 H Ferritin AST ALT Alkaline Phosphatase Lactate Dehydrogenase Troponin T C-Reactive Protein Total Protein Albumin LDL Cholesterol Direct Urine Creatinine Urine Total Protein Salicylates Acetaminophen Crossmatch 11/07/21 11/07/21 11/07/21 06:30 11:26 12:15 WBC 16.0 H RBC 3.06 L Hgb 8.2 L Hct 26.1 L MCH 27 L RDW 16.2 H Plt Count Lymph % (Auto) [place] % (Auto) Lymph # (Auto) [place] # (Auto) Seg Neutrophils % Seg Neuts % (Manual) 77.0 H Lymphocytes % (Manual) 11.0 L Nucleated RBC % 2.0 H Seg Neutrophils # Seg Neutrophils # Man 12.3 H Monocytes # (Manual) PT INR APTT D-Dimer Heparin Anti-Xa Level ABG pH 7.298 L ABG pO2 73.0 L ABG HCO3 33.3 H ABG O2 Saturation 94.4 L ABG Base Excess 5.8 H ABG Hemoglobin 8.2 L Oxyhemoglobin 92.7 L Sodium Potassium Chloride Carbon Dioxide BUN Creatinine Glucose POC Glucose 179 H Hemoglobin A1c Lactic Acid Calcium Phosphorus Magnesium Ferritin AST ALT Alkaline Phosphatase Lactate Dehydrogenase Troponin T C-Reactive Protein Total Protein Albumin LDL Cholesterol Direct Urine Creatinine Urine Total Protein Salicylates Acetaminophen Crossmatch 11/07/21 11/07/21 11/07/21 17:57 22:16 23:49 WBC RBC Hgb Hct MCH RDW Plt Count Lymph % (Auto) [place] % (Auto) Lymph # (Auto) [place] # (Auto) Seg Neutrophils % Seg Neuts % (Manual) Lymphocytes % (Manual) Nucleated RBC % Seg Neutrophils # Seg Neutrophils # Man Monocytes # (Manual) PT INR APTT D-Dimer Heparin Anti-Xa Level ABG pH ABG pO2 ABG HCO3 ABG O2 Saturation ABG Base Excess ABG Hemoglobin Oxyhemoglobin Sodium Potassium Chloride Carbon Dioxide BUN Creatinine Glucose POC Glucose 166 H 223 H 190 H Hemoglobin A1c Lactic Acid Calcium Phosphorus Magnesium Ferritin AST ALT Alkaline Phosphatase Lactate Dehydrogenase Troponin T C-Reactive Protein Total Protein Albumin LDL Cholesterol Direct Urine Creatinine Urine Total Protein Salicylates Acetaminophen Crossmatch 11/08/21 11/08/21 11/08/21 04:20 04:20 06:16 WBC 22.1 H RBC 3.01 L Hgb 8.1 L Hct 25.6 L MCH 27 L RDW 15.4 H Plt Count Lymph % (Auto) [place] % (Auto) Lymph # (Auto) [place] # (Auto) Seg Neutrophils % Seg Neuts % (Manual) Lymphocytes % (Manual) Nucleated RBC % Seg Neutrophils # Seg Neutrophils # Man Monocytes # (Manual) PT INR APTT D-Dimer Heparin Anti-Xa Level ABG pH ABG pO2 ABG HCO3 ABG O2 Saturation ABG Base Excess ABG Hemoglobin Oxyhemoglobin Sodium 151 H Potassium 3.1 L D Chloride 107.3 H Carbon Dioxide 31 H BUN 82 H Creatinine 1.8 H Glucose 232 H POC Glucose 198 H Hemoglobin A1c Lactic Acid Calcium 8.1 L Phosphorus Magnesium Ferritin AST ALT Alkaline Phosphatase Lactate Dehydrogenase Troponin T C-Reactive Protein Total Protein Albumin LDL Cholesterol Direct Urine Creatinine Urine Total Protein Salicylates Acetaminophen Crossmatch 11/08/21 11/08/21 11/08/21 11:38 12:00 18:29 WBC RBC Hgb Hct MCH RDW Plt Count Lymph % (Auto) [place] % (Auto) Lymph # (Auto) [place] # (Auto) Seg Neutrophils % Seg Neuts % (Manual) Lymphocytes % (Manual) Nucleated RBC % Seg Neutrophils # Seg Neutrophils # Man Monocytes # (Manual) PT INR APTT D-Dimer Heparin Anti-Xa Level ABG pH ABG pO2 ABG HCO3 ABG O2 Saturation ABG Base Excess ABG Hemoglobin Oxyhemoglobin Sodium Potassium 3.0 L Chloride Carbon Dioxide BUN Creatinine Glucose POC Glucose 190 H 211 H Hemoglobin A1c Lactic Acid Calcium Phosphorus Magnesium Ferritin AST ALT Alkaline Phosphatase Lactate Dehydrogenase Troponin T C-Reactive Protein Total Protein Albumin LDL Cholesterol Direct Urine Creatinine Urine Total Protein Salicylates Acetaminophen Crossmatch 11/08/21 11/08/21 11/09/21 21:34 21:40 00:36 WBC RBC Hgb Hct MCH RDW Plt Count Lymph % (Auto) [place] % (Auto) Lymph # (Auto) [place] # (Auto) Seg Neutrophils % Seg Neuts % (Manual) Lymphocytes % (Manual) Nucleated RBC % Seg Neutrophils # Seg Neutrophils # Man Monocytes # (Manual) PT INR APTT D-Dimer Heparin Anti-Xa Level ABG pH ABG pO2 ABG HCO3 ABG O2 Saturation ABG Base Excess ABG Hemoglobin Oxyhemoglobin Sodium 148 H Potassium 2.8 L* Chloride Carbon Dioxide 31 H BUN 68 H Creatinine 1.5 H Glucose 191 H POC Glucose 194 H 140 H Hemoglobin A1c Lactic Acid Calcium 8.2 L Phosphorus Magnesium Ferritin AST ALT Alkaline Phosphatase Lactate Dehydrogenase Troponin T C-Reactive Protein Total Protein Albumin LDL Cholesterol Direct Urine Creatinine Urine Total Protein Salicylates Acetaminophen Crossmatch 11/09/21 11/09/21 11/09/21 04:51 04:51 04:51 WBC 27.6 H RBC 3.18 L Hgb 8.4 L Hct 26.6 L MCH 27 L RDW 15.3 H Plt Count Lymph % (Auto) [place] % (Auto) Lymph # (Auto) [place] # (Auto) Seg Neutrophils % Seg Neuts % (Manual) Lymphocytes % (Manual) Nucleated RBC % Seg Neutrophils # Seg Neutrophils # Man Monocytes # (Manual) PT INR APTT D-Dimer Heparin Anti-Xa Level 0.18 L ABG pH ABG pO2 ABG HCO3 ABG O2 Saturation ABG Base Excess ABG Hemoglobin Oxyhemoglobin Sodium 148 H Potassium 2.7 L* Chloride Carbon Dioxide BUN 59 H Creatinine 1.4 H Glucose 143 H POC Glucose Hemoglobin A1c Lactic Acid Calcium 8.3 L Phosphorus Magnesium Ferritin AST ALT Alkaline Phosphatase Lactate Dehydrogenase Troponin T C-Reactive Protein Total Protein Albumin LDL Cholesterol Direct Urine Creatinine Urine Total Protein Salicylates Acetaminophen Crossmatch 11/09/21 11/09/21 11/09/21 05:52 08:45 11:00 WBC RBC Hgb Hct MCH RDW Plt Count Lymph % (Auto) [place] % (Auto) Lymph # (Auto) [place] # (Auto) Seg Neutrophils % Seg Neuts % (Manual) Lymphocytes % (Manual) Nucleated RBC % Seg Neutrophils # Seg Neutrophils # Man Monocytes # (Manual) PT INR APTT D-Dimer Heparin Anti-Xa Level ABG pH ABG pO2 73.2 L ABG HCO3 33.8 H ABG O2 Saturation ABG Base Excess 8.7 H ABG Hemoglobin 8.5 L Oxyhemoglobin 94.1 L Sodium Potassium Chloride Carbon Dioxide BUN Creatinine Glucose POC Glucose 166 H 136 H Hemoglobin A1c Lactic Acid Calcium Phosphorus Magnesium Ferritin AST ALT Alkaline Phosphatase Lactate Dehydrogenase Troponin T C-Reactive Protein Total Protein Albumin LDL Cholesterol Direct Urine Creatinine Urine Total Protein Salicylates Acetaminophen Crossmatch 11/09/21 11/09/21 11/09/21 15:48 16:10 20:31 WBC RBC Hgb Hct MCH RDW Plt Count Lymph % (Auto) [place] % (Auto) Lymph # (Auto) [place] # (Auto) Seg Neutrophils % Seg Neuts % (Manual) Lymphocytes % (Manual) Nucleated RBC % Seg Neutrophils # Seg Neutrophils # Man Monocytes # (Manual) PT INR APTT D-Dimer Heparin Anti-Xa Level ABG pH ABG pO2 ABG HCO3 ABG O2 Saturation ABG Base Excess ABG Hemoglobin Oxyhemoglobin Sodium Potassium 2.8 L* Chloride Carbon Dioxide 31 H BUN 53 H Creatinine 1.3 H Glucose 208 H POC Glucose 203 H 166 H Hemoglobin A1c Lactic Acid Calcium 7.9 L Phosphorus Magnesium Ferritin AST ALT Alkaline Phosphatase Lactate Dehydrogenase Troponin T C-Reactive Protein Total Protein Albumin LDL Cholesterol Direct Urine Creatinine Urine Total Protein Salicylates Acetaminophen Crossmatch 11/09/21 11/09/21 11/09/21 21:30 23:16 Unknown WBC RBC Hgb Hct MCH RDW Plt Count Lymph % (Auto) [place] % (Auto) Lymph # (Auto) [place] # (Auto) Seg Neutrophils % Seg Neuts % (Manual) Lymphocytes % (Manual) Nucleated RBC % Seg Neutrophils # Seg Neutrophils # Man Monocytes # (Manual) PT INR APTT D-Dimer Heparin Anti-Xa Level 0.24 L ABG pH ABG pO2 ABG HCO3 ABG O2 Saturation ABG Base Excess ABG Hemoglobin Oxyhemoglobin Sodium Potassium Chloride Carbon Dioxide BUN 52 H Creatinine 1.4 H Glucose 185 H POC Glucose 172 H Hemoglobin A1c Lactic Acid Calcium 7.8 L Phosphorus Magnesium Ferritin AST ALT Alkaline Phosphatase Lactate Dehydrogenase Troponin T C-Reactive Protein Total Protein Albumin LDL Cholesterol Direct Urine Creatinine Urine Total Protein Salicylates Acetaminophen Crossmatch 11/10/21 11/10/21 11/10/21 02:00 04:17 04:17 WBC 24.5 H RBC 2.75 L Hgb 7.5 L Hct 22.9 L MCH 27 L RDW Plt Count Lymph % (Auto) [place] % (Auto) Lymph # (Auto) [place] # (Auto) Seg Neutrophils % Seg Neuts % (Manual) Lymphocytes % (Manual) Nucleated RBC % Seg Neutrophils # Seg Neutrophils # Man Monocytes # (Manual) PT INR APTT D-Dimer Heparin Anti-Xa Level 0.26 L ABG pH ABG pO2 ABG HCO3 ABG O2 Saturation ABG Base Excess ABG Hemoglobin Oxyhemoglobin Sodium Potassium 2.9 L* Chloride Carbon Dioxide 35 H BUN 48 H Creatinine Glucose 212 H POC Glucose Hemoglobin A1c Lactic Acid Calcium 8.1 L Phosphorus Magnesium Ferritin AST ALT Alkaline Phosphatase Lactate Dehydrogenase Troponin T C-Reactive Protein Total Protein Albumin LDL Cholesterol Direct Urine Creatinine Urine Total Protein Salicylates Acetaminophen Crossmatch 11/10/21 11/10/21 11/10/21 05:01 08:39 11:03 WBC RBC Hgb Hct MCH RDW Plt Count Lymph % (Auto) [place] % (Auto) Lymph # (Auto) [place] # (Auto) Seg Neutrophils % Seg Neuts % (Manual) Lymphocytes % (Manual) Nucleated RBC % Seg Neutrophils # Seg Neutrophils # Man Monocytes # (Manual) PT INR APTT D-Dimer Heparin Anti-Xa Level 0.12 L ABG pH ABG pO2 ABG HCO3 ABG O2 Saturation ABG Base Excess ABG Hemoglobin Oxyhemoglobin Sodium Potassium Chloride Carbon Dioxide BUN Creatinine Glucose POC Glucose 203 H 152 H Hemoglobin A1c Lactic Acid Calcium Phosphorus Magnesium Ferritin AST ALT Alkaline Phosphatase Lactate Dehydrogenase Troponin T C-Reactive Protein Total Protein Albumin LDL Cholesterol Direct Urine Creatinine Urine Total Protein Salicylates Acetaminophen Crossmatch 11/10/21 11/10/21 11/10/21 12:45 15:43 21:05 WBC RBC Hgb Hct MCH RDW Plt Count Lymph % (Auto) [place] % (Auto) Lymph # (Auto) [place] # (Auto) Seg Neutrophils % Seg Neuts % (Manual) Lymphocytes % (Manual) Nucleated RBC % Seg Neutrophils # Seg Neutrophils # Man Monocytes # (Manual) PT INR APTT D-Dimer Heparin Anti-Xa Level ABG pH ABG pO2 ABG HCO3 ABG O2 Saturation ABG Base Excess ABG Hemoglobin Oxyhemoglobin Sodium 146 H Potassium 3.3 L Chloride Carbon Dioxide 31 H BUN 43 H Creatinine Glucose 155 H POC Glucose 139 H 139 H Hemoglobin A1c Lactic Acid Calcium 8.3 L Phosphorus Magnesium Ferritin AST ALT Alkaline Phosphatase Lactate Dehydrogenase Troponin T C-Reactive Protein Total Protein Albumin LDL Cholesterol Direct Urine Creatinine Urine Total Protein Salicylates Acetaminophen Crossmatch 11/10/21 11/11/21 11/11/21 23:25 03:49 03:49 WBC 22.1 H RBC 2.69 L Hgb 7.2 L Hct 22.7 L MCH 27 L RDW Plt Count Lymph % (Auto) [place] % (Auto) Lymph # (Auto) [place] # (Auto) Seg Neutrophils % Seg Neuts % (Manual) Lymphocytes % (Manual) Nucleated RBC % Seg Neutrophils # Seg Neutrophils # Man Monocytes # (Manual) PT INR APTT D-Dimer Heparin Anti-Xa Level ABG pH ABG pO2 ABG HCO3 ABG O2 Saturation ABG Base Excess ABG Hemoglobin Oxyhemoglobin Sodium Potassium Chloride Carbon Dioxide 32 H BUN 44 H Creatinine 1.3 H Glucose 173 H POC Glucose 146 H Hemoglobin A1c Lactic Acid Calcium Phosphorus Magnesium Ferritin AST ALT Alkaline Phosphatase Lactate Dehydrogenase Troponin T C-Reactive Protein Total Protein Albumin LDL Cholesterol Direct Urine Creatinine Urine Total Protein Salicylates Acetaminophen Crossmatch 11/11/21 11/11/21 11/11/21 05:03 10:50 11:32 WBC RBC Hgb Hct MCH RDW Plt Count Lymph % (Auto) [place] % (Auto) Lymph # (Auto) [place] # (Auto) Seg Neutrophils % Seg Neuts % (Manual) Lymphocytes % (Manual) Nucleated RBC % Seg Neutrophils # Seg Neutrophils # Man Monocytes # (Manual) PT INR APTT D-Dimer Heparin Anti-Xa Level ABG pH ABG pO2 ABG HCO3 ABG O2 Saturation ABG Base Excess ABG Hemoglobin Oxyhemoglobin Sodium Potassium Chloride Carbon Dioxide BUN Creatinine Glucose POC Glucose 152 H 129 H 133 H Hemoglobin A1c Lactic Acid Calcium Phosphorus Magnesium Ferritin AST ALT Alkaline Phosphatase Lactate Dehydrogenase Troponin T C-Reactive Protein Total Protein Albumin LDL Cholesterol Direct Urine Creatinine Urine Total Protein Salicylates Acetaminophen Crossmatch 11/11/21 11/11/21 11/11/21 13:53 16:31 17:13 WBC RBC Hgb Hct MCH RDW Plt Count Lymph % (Auto) [place] % (Auto) Lymph # (Auto) [place] # (Auto) Seg Neutrophils % Seg Neuts % (Manual) Lymphocytes % (Manual) Nucleated RBC % Seg Neutrophils # Seg Neutrophils # Man Monocytes # (Manual) PT INR APTT D-Dimer Heparin Anti-Xa Level ABG pH 7.475 H ABG pO2 64.1 L ABG HCO3 32.4 H ABG O2 Saturation ABG Base Excess 8.0 H ABG Hemoglobin 7.6 L Oxyhemoglobin 94.0 L Sodium Potassium Chloride Carbon Dioxide BUN Creatinine Glucose POC Glucose 116 H 125 H Hemoglobin A1c Lactic Acid Calcium Phosphorus Magnesium Ferritin AST ALT Alkaline Phosphatase Lactate Dehydrogenase Troponin T C-Reactive Protein Total Protein Albumin LDL Cholesterol Direct Urine Creatinine Urine Total Protein Salicylates Acetaminophen Crossmatch 11/11/21 11/11/21 11/12/21 20:40 23:35 03:30 WBC 17.7 H RBC 2.37 L Hgb 6.3 L Hct 20.0 L MCH 27 L RDW 15.5 H Plt Count Lymph % (Auto) [place] % (Auto) Lymph # (Auto) [place] # (Auto) Seg Neutrophils % Seg Neuts % (Manual) Lymphocytes % (Manual) Nucleated RBC % Seg Neutrophils # Seg Neutrophils # Man Monocytes # (Manual) PT INR APTT D-Dimer Heparin Anti-Xa Level 0.26 L ABG pH ABG pO2 ABG HCO3 ABG O2 Saturation ABG Base Excess ABG Hemoglobin Oxyhemoglobin Sodium Potassium Chloride Carbon Dioxide BUN Creatinine Glucose POC Glucose 118 H Hemoglobin A1c Lactic Acid Calcium Phosphorus Magnesium Ferritin AST ALT Alkaline Phosphatase Lactate Dehydrogenase Troponin T C-Reactive Protein Total Protein Albumin LDL Cholesterol Direct Urine Creatinine Urine Total Protein Salicylates Acetaminophen Crossmatch 11/12/21 11/12/21 11/12/21 03:30 04:15 11:53 WBC RBC Hgb Hct MCH RDW Plt Count Lymph % (Auto) [place] % (Auto) Lymph # (Auto) [place] # (Auto) Seg Neutrophils % Seg Neuts % (Manual) Lymphocytes % (Manual) Nucleated RBC % Seg Neutrophils # Seg Neutrophils # Man Monocytes # (Manual) PT INR APTT D-Dimer Heparin Anti-Xa Level ABG pH ABG pO2 ABG HCO3 ABG O2 Saturation ABG Base Excess ABG Hemoglobin Oxyhemoglobin Sodium Potassium Chloride Carbon Dioxide 33 H BUN 38 H Creatinine 1.3 H Glucose 102 H POC Glucose 62 L Hemoglobin A1c Lactic Acid Calcium 8.2 L Phosphorus Magnesium Ferritin AST ALT Alkaline Phosphatase Lactate Dehydrogenase Troponin T C-Reactive Protein Total Protein Albumin LDL Cholesterol Direct Urine Creatinine Urine Total Protein Salicylates Acetaminophen Crossmatch See Detail 11/12/21 11/12/21 11/12/21 17:20 19:14 23:11 WBC RBC Hgb 6.2 L Hct 19.5 L* MCH RDW Plt Count Lymph % (Auto) [place] % (Auto) Lymph # (Auto) [place] # (Auto) Seg Neutrophils % Seg Neuts % (Manual) Lymphocytes % (Manual) Nucleated RBC % Seg Neutrophils # Seg Neutrophils # Man Monocytes # (Manual) PT INR APTT D-Dimer Heparin Anti-Xa Level ABG pH ABG pO2 ABG HCO3 ABG O2 Saturation ABG Base Excess ABG Hemoglobin Oxyhemoglobin Sodium Potassium Chloride Carbon Dioxide BUN Creatinine Glucose POC Glucose 115 H 131 H Hemoglobin A1c Lactic Acid Calcium Phosphorus Magnesium Ferritin AST ALT Alkaline Phosphatase Lactate Dehydrogenase Troponin T C-Reactive Protein Total Protein Albumin LDL Cholesterol Direct Urine Creatinine Urine Total Protein Salicylates Acetaminophen Crossmatch 11/13/21 11/13/21 11/13/21 00:13 04:17 04:17 WBC 23.8 H RBC 2.84 L Hgb 7.4 L 7.8 L Hct 23.3 L 24.9 L MCH 27 L RDW 15.4 H Plt Count Lymph % (Auto) [place] % (Auto) Lymph # (Auto) [place] # (Auto) Seg Neutrophils % Seg Neuts % (Manual) Lymphocytes % (Manual) Nucleated RBC % Seg Neutrophils # Seg Neutrophils # Man Monocytes # (Manual) PT INR APTT D-Dimer Heparin Anti-Xa Level ABG pH ABG pO2 ABG HCO3 ABG O2 Saturation ABG Base Excess ABG Hemoglobin Oxyhemoglobin Sodium 146 H Potassium Chloride Carbon Dioxide BUN 44 H Creatinine 1.6 H Glucose 144 H POC Glucose Hemoglobin A1c Lactic Acid Calcium 7.9 L Phosphorus 5.10 H D Magnesium Ferritin AST ALT Alkaline Phosphatase Lactate Dehydrogenase Troponin T C-Reactive Protein Total Protein Albumin LDL Cholesterol Direct Urine Creatinine Urine Total Protein Salicylates Acetaminophen Crossmatch 11/13/21 11/13/21 11/13/21 05:52 10:54 15:57 WBC RBC Hgb Hct MCH RDW Plt Count Lymph % (Auto) [place] % (Auto) Lymph # (Auto) [place] # (Auto) Seg Neutrophils % Seg Neuts % (Manual) Lymphocytes % (Manual) Nucleated RBC % Seg Neutrophils # Seg Neutrophils # Man Monocytes # (Manual) PT INR APTT D-Dimer Heparin Anti-Xa Level ABG pH ABG pO2 ABG HCO3 ABG O2 Saturation ABG Base Excess ABG Hemoglobin Oxyhemoglobin Sodium Potassium Chloride Carbon Dioxide BUN Creatinine Glucose POC Glucose 123 H 147 H 207 H Hemoglobin A1c Lactic Acid Calcium Phosphorus Magnesium Ferritin AST ALT Alkaline Phosphatase Lactate Dehydrogenase Troponin T C-Reactive Protein Total Protein Albumin LDL Cholesterol Direct Urine Creatinine Urine Total Protein Salicylates Acetaminophen Crossmatch 11/13/21 11/13/21 11/14/21 16:01 23:18 04:55 WBC 23.9 H RBC 2.86 L Hgb 6.5 L 8.3 L Hct 20.3 L 24.5 L MCH RDW Plt Count Lymph % (Auto) [place] % (Auto) Lymph # (Auto) [place] # (Auto) Seg Neutrophils % Seg Neuts % (Manual) Lymphocytes % (Manual) Nucleated RBC % Seg Neutrophils # Seg Neutrophils # Man Monocytes # (Manual) PT INR APTT D-Dimer Heparin Anti-Xa Level ABG pH ABG pO2 ABG HCO3 ABG O2 Saturation ABG Base Excess ABG Hemoglobin Oxyhemoglobin Sodium Potassium Chloride Carbon Dioxide BUN Creatinine Glucose POC Glucose 209 H Hemoglobin A1c Lactic Acid Calcium Phosphorus Magnesium Ferritin AST ALT Alkaline Phosphatase Lactate Dehydrogenase Troponin T C-Reactive Protein Total Protein Albumin LDL Cholesterol Direct Urine Creatinine Urine Total Protein Salicylates Acetaminophen Crossmatch 11/14/21 11/14/21 11/14/21 04:55 05:09 11:35 WBC RBC Hgb Hct MCH RDW Plt Count Lymph % (Auto) [place] % (Auto) Lymph # (Auto) [place] # (Auto) Seg Neutrophils % Seg Neuts % (Manual) Lymphocytes % (Manual) Nucleated RBC % Seg Neutrophils # Seg Neutrophils # Man Monocytes # (Manual) PT INR APTT D-Dimer Heparin Anti-Xa Level ABG pH ABG pO2 ABG HCO3 ABG O2 Saturation ABG Base Excess ABG Hemoglobin Oxyhemoglobin Sodium 148 H Potassium Chloride 109.0 H Carbon Dioxide BUN 42 H Creatinine 1.6 H Glucose 184 H POC Glucose 169 H 154 H Hemoglobin A1c Lactic Acid Calcium 8.0 L Phosphorus Magnesium Ferritin AST ALT Alkaline Phosphatase Lactate Dehydrogenase Troponin T C-Reactive Protein Total Protein Albumin LDL Cholesterol Direct Urine Creatinine Urine Total Protein Salicylates Acetaminophen Crossmatch 11/14/21 11/14/21 11/15/21 16:57 23:11 04:36 WBC RBC Hgb Hct MCH RDW Plt Count Lymph % (Auto) [place] % (Auto) Lymph # (Auto) [place] # (Auto) Seg Neutrophils % Seg Neuts % (Manual) Lymphocytes % (Manual) Nucleated RBC % Seg Neutrophils # Seg Neutrophils # Man Monocytes # (Manual) PT INR APTT D-Dimer Heparin Anti-Xa Level ABG pH ABG pO2 ABG HCO3 ABG O2 Saturation ABG Base Excess ABG Hemoglobin Oxyhemoglobin Sodium 151 H Potassium Chloride 111.2 H Carbon Dioxide BUN 36 H Creatinine 1.3 H Glucose 136 H POC Glucose 124 H 118 H Hemoglobin A1c Lactic Acid Calcium 8.1 L Phosphorus Magnesium Ferritin AST ALT Alkaline Phosphatase Lactate Dehydrogenase Troponin T C-Reactive Protein Total Protein Albumin LDL Cholesterol Direct Urine Creatinine Urine Total Protein Salicylates Acetaminophen Crossmatch 11/15/21 11/15/21 11/16/21 11:18 21:49 00:15 WBC RBC Hgb Hct MCH RDW Plt Count Lymph % (Auto) [place] % (Auto) Lymph # (Auto) [place] # (Auto) Seg Neutrophils % Seg Neuts % (Manual) Lymphocytes % (Manual) Nucleated RBC % Seg Neutrophils # Seg Neutrophils # Man Monocytes # (Manual) PT INR APTT D-Dimer Heparin Anti-Xa Level ABG pH ABG pO2 ABG HCO3 ABG O2 Saturation ABG Base Excess ABG Hemoglobin Oxyhemoglobin Sodium Potassium Chloride Carbon Dioxide BUN Creatinine Glucose POC Glucose 154 H 154 H 146 H Hemoglobin A1c Lactic Acid Calcium Phosphorus Magnesium Ferritin AST ALT Alkaline Phosphatase Lactate Dehydrogenase Troponin T C-Reactive Protein Total Protein Albumin LDL Cholesterol Direct Urine Creatinine Urine Total Protein Salicylates Acetaminophen Crossmatch 11/16/21 11/16/21 11/16/21 05:11 05:11 05:37 WBC 18.2 H RBC 2.92 L Hgb 8.3 L Hct 26.1 L MCH RDW 15.8 H Plt Count Lymph % (Auto) 6.3 L [place] % (Auto) 10.2 H Lymph # (Auto) [place] # (Auto) 1.9 H Seg Neutrophils % 81.7 H Seg Neuts % (Manual) Lymphocytes % (Manual) Nucleated RBC % Seg Neutrophils # 14.9 H Seg Neutrophils # Man Monocytes # (Manual) PT INR APTT D-Dimer Heparin Anti-Xa Level ABG pH ABG pO2 ABG HCO3 ABG O2 Saturation ABG Base Excess ABG Hemoglobin Oxyhemoglobin Sodium 146 H Potassium Chloride 108.0 H Carbon Dioxide BUN 25 H Creatinine Glucose 123 H POC Glucose 109 H Hemoglobin A1c Lactic Acid Calcium 7.8 L Phosphorus Magnesium Ferritin AST ALT Alkaline Phosphatase Lactate Dehydrogenase Troponin T C-Reactive Protein Total Protein Albumin LDL Cholesterol Direct Urine Creatinine Urine Total Protein Salicylates Acetaminophen Crossmatch 11/16/21 11/16/21 11/17/21 11:22 23:55 04:33 WBC RBC Hgb Hct MCH RDW Plt Count Lymph % (Auto) [place] % (Auto) Lymph # (Auto) [place] # (Auto) Seg Neutrophils % Seg Neuts % (Manual) Lymphocytes % (Manual) Nucleated RBC % Seg Neutrophils # Seg Neutrophils # Man Monocytes # (Manual) PT INR APTT D-Dimer Heparin Anti-Xa Level ABG pH ABG pO2 ABG HCO3 ABG O2 Saturation ABG Base Excess ABG Hemoglobin Oxyhemoglobin Sodium Potassium Chloride Carbon Dioxide BUN 20 H Creatinine Glucose POC Glucose 136 H 113 H Hemoglobin A1c Lactic Acid Calcium 7.5 L Phosphorus Magnesium Ferritin AST ALT Alkaline Phosphatase Lactate Dehydrogenase Troponin T C-Reactive Protein Total Protein Albumin LDL Cholesterol Direct Urine Creatinine Urine Total Protein Salicylates Acetaminophen Crossmatch Chest x-ray: image reviewed (increased bilateral infiltrates) Allied health notes reviewed: nursing
--- NOTE | 2021-11-17 14:11 | Progress Note ---
Assessment and Plan Patient is a 66-year-old female with unknown past medical history brought into the ED following outside of hospital cardiac arrest thought to be PEA with thought to have downtime of 7 to 9 minutes however details are unclear S/P PEA cardiopulmonary arrest-No longer on pressors Acute hypoxic respiratory failure-pulm following Septic shock Aspiration pneumonia Atrial flutter w/ RVR- currently sinus rhythm Pneumothorax- s/p CT Acute DVT-on Heparin gtt Hypokalemia Transaminitis Retroperitoneal Hematoma Echo 10/30/2021-technically difficult study due to body habitus. EF 25 to 30%. Right ventricular systolic function is normal. No pericardial effusion Plan: Continue metoprolol 100 mg p.o. twice daily Patient appears hypervolemic on exam agree to agree with diuresis with Lasix IV 40 mg Patient is hypertensive this a.m. and renal function has improved. Will initiate losartan 25 mg p.o. daily Heparin gtt is on hold in the setting of anemia requiring pRBC transfusion (secondary to retroperitoneal hematoma) Patient seen in conjunction with Dr. Johnson who agrees with this plan of care - Patient Problems (1) Cardiopulmonary arrest Current Visit: Yes Status: Acute (2) Hypokalemia Current Visit: Yes Status: Acute (3) Transaminitis Current Visit: Yes Status: Acute (4) Aspiration pneumonia Current Visit: Yes Status: Acute (5) Acute hypoxemic respiratory failure Current Visit: Yes Status: Acute (6) Septic shock Current Visit: Yes Status: Acute (7) Toxic metabolic encephalopathy Current Visit: Yes Status: Acute (8) Shock liver Current Visit: Yes Status: Acute Subjective Date of service: 11/17/21 Principal diagnosis: AHRF; Cardiac arrest; R. pneumothorax; pneumonia; AMS; DVT's; SIERRA; Obesity Interval history: Patient resting in bed in no acute distress. Patient currently on nasal cannula Patient sinus rate trending 70s-80s Objective Vital Signs Temp Pulse Pulse Resp BP Pulse Ox 11/17/21 13:00 34 H 174/101 98 11/17/21 12:00 89 93 H 21 164/86 98 11/17/21 11:28 99.4 F 11/17/21 11:00 84 33 H 171/93 98 11/17/21 10:59 86 156/84 11/17/21 10:00 76 34 H 156/84 100 11/17/21 09:00 75 33 H 166/80 100 11/17/21 08:00 75 90 24 172/89 100 11/17/21 07:19 99.3 F 11/17/21 07:00 88 18 158/91 100 11/17/21 06:00 72 30 H 155/82 100 11/17/21 05:19 77 21 143/77 100 11/17/21 05:00 71 32 H 143/77 97 11/17/21 04:00 99.0 F 71 94 H 32 H 143/73 97 11/17/21 03:00 70 33 H 142/78 98 11/17/21 02:00 71 30 H 149/79 99 11/17/21 01:00 71 28 H 139/78 98 11/17/21 00:00 99.8 F H 102 H 95 H 38 H 173/98 100 11/16/21 23:00 80 37 H 158/87 97 11/16/21 22:00 91 H 23 160/86 98 11/16/21 21:38 97 11/16/21 21:00 91 H 28 H 164/87 94 11/16/21 20:00 98.0 F 90 82 43 H 151/82 99 11/16/21 19:50 90 51 H 98 11/16/21 19:00 89 43 H 161/82 99 11/16/21 18:00 91 H 41 H 161/82 97 11/16/21 17:00 88 28 H 190/83 98 11/16/21 16:00 88 84 20 149/95 98 11/16/21 15:00 90 31 H 149/95 96 - Physical Examination General: No Apparent Distress HEENT: Positive: EOMI, Normocephaly Neck: Positive: trachea midline. Negative: JVD/HJR Cardiac: Positive: Reg Rate and Rhythm Lungs: Positive: Rales Neuro: Positive: Grossly Intact Abdomen: Positive: Soft Skin: Negative: Rash Musculoskeletal: No Pain Extremities: Present: upper extr. pulses, edema, warm - Labs and Meds Comprehensive Metabolic Panel 11/17/21 Range/Units 04:33 Sodium 145 (137-145) mmol/L Potassium 3.9 (3.6-5.0) mmol/L Chloride 105.1 (98-107) mmol/L Carbon Dioxide 29 (22-30) mmol/L BUN 20 H (7-17) mg/dL Creatinine 1.1 (0.6-1.2) mg/dL Glucose 89 (65-100) mg/dL Calcium 7.5 L (8.4-10.2) mg/dL - Imaging and Cardiology EKG: report reviewed, image reviewed Echo: report reviewed - Telemetry EKG Rhythm: Sinus Rhythm - EKG Sinus rhythms and dysrhythmias: sinus rhythm Ventricular dysrhythmias: ventricular premature com Repolarization changes or abnormalities: nonspecific abnormality, ST segment, and/or T wave Myocardial infarction: septal [place] (old age or ind - Allied health notes Allied health notes reviewed: nursing
[2021-11-17] MEDS: LOSARTAN 25 MG TAB PO SCH (18:12)
[2021-11-17] MEDS: INSULIN GLARGINE 100 UNITS/ML SUB-Q SCH (22:05)
[2021-11-18] MEDS: INSULIN LISPRO 100 UNIT/ML SUB-Q SCH ×4 (00:30→23:43)
[2021-11-18 05:17] LABS: Basophils # (Auto) 0.1 K/mm3 (0.0-0.1); Basophils % (Auto) 0.6 % (0.0-1.8); Eosinophils # (Auto) 0.2 K/mm3 (0.0-0.4); Eosinophils % (Auto) 1.8 % (0.0-4.3); Hematocrit 26.4 % (30.3-42.9); Hemoglobin 8.5 gm/dl (10.1-14.3); Lymphocytes # (Auto) 1.2 K/mm3 (1.2-5.4); Lymphocytes % (Auto) 9.5 % (13.4-35.0); Mean Corpuscular HGB Conc 32 % (30-34); Mean Corpuscular Volume 88 fl (79-97); Monocytes # (Auto) 1.3 K/mm3 (0.0-0.8); Monocytes % (Auto) 9.8 % (0.0-7.3); Platelet Count 321 K/mm3 (140-440); Red Blood Count 2.99 M/mm3 (3.65-5.03); Red Cell Distribution Width 15.1 % (13.2-15.2)
--- NOTE | 2021-11-18 05:27 | XRay Report ---
XR chest 1V ap INDICATION / CLINICAL INFORMATION: interstitial edema. COMPARISON: 11/16/2021 FINDINGS: SUPPORT DEVICES: None. HEART /PULMONARY VASCULATURE: Unchanged. LUNGS / PLEURA: Low lung volumes remain. There is improvement in interstitial edema. No pneumothorax. IMPRESSION: Improving interstitial edema. Signer Name: Ariel Magana MD Signed: 11/18/2021 5:23 AM Workstation Name: [id number]
[2021-11-18 05:40] LABS: BUN/Creatinine Ratio 18; Blood Urea Nitrogen 18 mg/dL (7-17); Calcium 8.1 mg/dL (8.4-10.2); Hemolysis Index 6
[2021-11-18] MEDS: MORPHINE 4 MG/1 ML INJ IV PRN (05:40)
[2021-11-18] MEDS ORDERED: FUROSEMIDE 20 MG/2 ML INJ IV SCH (10:00)
[2021-11-18] MEDS: METOPROLOL TARTRATE 100 MG TAB PO SCH ×2 (10:15→21:38)
[2021-11-18] MEDS: SPIRONOLACTONE 25 MG TAB PO SCH (10:15)
[2021-11-18] MEDS: SENNOSIDES/DOCUSATE SODIUM 8.6/50 MG TAB PO SCH ×2 (10:16→23:43)
[2021-11-18] MEDS: LOSARTAN 25 MG TAB PO SCH (10:16)
[2021-11-18] MEDS: FAMOTIDINE 10 MG TAB PO SCH ×2 (10:16→21:38)
[2021-11-18] MEDS: FUROSEMIDE 20 MG/2 ML INJ IV SCH ×2 (10:16→21:38)
--- NOTE | 2021-11-18 13:50 | Progress Note ---
Assessment and Plan Patient is a 66-year-old female with unknown past medical history brought into the ED following outside of hospital cardiac arrest thought to be PEA with thought to have downtime of 7 to 9 minutes however details are unclear S/P PEA cardiopulmonary arrest-No longer on pressors Acute hypoxic respiratory failure-pulm following Septic shock Aspiration pneumonia Atrial flutter w/ RVR- currently sinus rhythm Pneumothorax- s/p CT Acute DVT-on Heparin gtt Hypokalemia Transaminitis Retroperitoneal Hematoma Echo 10/30/2021-technically difficult study due to body habitus. EF 25 to 30%. Right ventricular systolic function is normal. No pericardial effusion Plan: Continue metoprolol 100 mg p.o. twice daily and losartan 25 mg p.o. daily Heparin gtt is on hold in the setting of anemia requiring pRBC transfusion (secondary to retroperitoneal hematoma) We will see as needed over the weekend Patient seen in conjunction with Dr. Johnson who agrees with this plan of care - Patient Problems (1) Cardiopulmonary arrest Current Visit: Yes Status: Acute (2) Hypokalemia Current Visit: Yes Status: Acute (3) Transaminitis Current Visit: Yes Status: Acute (4) Aspiration pneumonia Current Visit: Yes Status: Acute (5) Acute hypoxemic respiratory failure Current Visit: Yes Status: Acute (6) Septic shock Current Visit: Yes Status: Acute (7) Toxic metabolic encephalopathy Current Visit: Yes Status: Acute (8) Shock liver Current Visit: Yes Status: Acute Subjective Date of service: 11/18/21 Principal diagnosis: AHRF; Cardiac arrest; R. pneumothorax; pneumonia; AMS; DVT's; SIERRA; Obesity Interval history: Patient resting in bed in no acute distress. Patient currently on nasal cannula Patient sinus rate trending 70s-80s Objective Vital Signs Temp Pulse Pulse Resp BP Pulse Ox 11/18/21 11:38 98.7 F 11/18/21 10:16 88 167/93 11/18/21 10:15 87 167/93 11/18/21 09:00 79 31 H 163/94 99 11/18/21 08:00 73 90 28 H 150/75 95 11/18/21 07:00 74 31 H 158/89 97 11/18/21 06:00 82 12 166/99 11/18/21 05:00 73 32 H 167/82 98 11/18/21 04:00 78 95 H 33 H 145/87 96 02/25/22 03:00 72 31 H 155/75 97 11/18/21 02:00 73 19 162/87 97 11/18/21 01:00 71 27 H 165/82 97 11/18/21 00:00 100.3 F H 103 H 95 H 29 H 161/91 97 11/17/21 23:49 103 H 24 159/82 98 11/17/21 23:00 72 32 H 159/82 95 11/17/21 22:00 69 22 160/90 97 11/17/21 21:18 81 32 H 180/87 100 11/17/21 21:05 100 11/17/21 21:00 74 33 H 180/87 100 11/17/21 20:00 99.5 F 74 95 H 36 H 163/94 100 11/17/21 19:00 78 33 H 165/90 99 11/17/21 18:12 84 161/91 11/17/21 18:00 82 40 H 161/91 99 11/17/21 17:00 106 H 39 H 182/111 100 11/17/21 16:50 99 11/17/21 16:00 99.1 F 102 H 95 H 18 174/107 100 11/17/21 15:00 102 H 35 H 165/97 99 11/17/21 14:00 101 H 35 H 152/95 97 - Physical Examination General: No Apparent Distress HEENT: Positive: EOMI, Normocephaly Neck: Positive: trachea midline. Negative: JVD/HJR Cardiac: Positive: Reg Rate and Rhythm Lungs: Positive: Decreased Breath Sounds Neuro: Positive: Grossly Intact Abdomen: Positive: Soft Skin: Negative: Rash Musculoskeletal: No Pain Extremities: Present: upper extr. pulses, edema, warm - Labs and Meds CBC 11/18/21 Range/Units 04:53 WBC 13.0 H (4.5-11.0) K/mm3 RBC 2.99 L (3.65-5.03) M/mm3 Hgb 8.5 L (10.1-14.3) gm/dl Hct 26.4 L (30.3-42.9) % Plt Count 321 (140-440) K/mm3 Lymph # (Auto) 1.2 (1.2-5.4) K/mm3 [place] # (Auto) 1.3 H (0.0-0.8) K/mm3 Eos # (Auto) 0.2 (0.0-0.4) K/mm3 Baso # (Auto) 0.1 (0.0-0.1) K/mm3 Comprehensive Metabolic Panel 11/18/21 Range/Units 04:53 Sodium 142 (137-145) mmol/L Potassium 3.7 (3.6-5.0) mmol/L Chloride 101.8 (98-107) mmol/L Carbon Dioxide 30 (22-30) mmol/L BUN 18 H (7-17) mg/dL Creatinine 1.0 (0.6-1.2) mg/dL Glucose 106 H (65-100) mg/dL Calcium 8.1 L (8.4-10.2) mg/dL - Imaging and Cardiology EKG: report reviewed, image reviewed Echo: report reviewed - Telemetry EKG Rhythm: Sinus Rhythm - EKG Sinus rhythms and dysrhythmias: sinus rhythm Ventricular dysrhythmias: ventricular premature com Repolarization changes or abnormalities: nonspecific abnormality, ST segment, and/or T wave Myocardial infarction: septal [place] (old age or ind - Allied health notes Allied health notes reviewed: nursing
[2021-11-18] MEDS ORDERED: NALOXONE 0.4 MG/1 ML INJ ONE (14:20)
[2021-11-18] MEDS: LACTULOSE 20 GM/30 ML ORAL LIQD PO PRN (15:06)
[2021-11-18] MEDS: DOCUSATE SODIUM 100 MG CAP PO SCH ×2 (15:07→23:43)
--- NOTE | 2021-11-18 15:12 | Progress Note ---
Assessment and Plan Assessment and plan: This is a 66-year-old female with past medical history of HTN and Obesity admitted for septic shock, s/p cardiac arrest with ROSC in the field now intubated and on ventilatory support. Neuro: Acute Metabolic encephalopathy, agitation/anxiety -Avoid delirium -Reorientation as needed -Precedex gtt -Maintain sleep-wake cycle -CT head no acute focal parenchymal lesion in the brain -Neurology consulted, appreciate recommendations -EEG and MRI noted, Neuro recommend to cut down on sedation as possible Cardiac: Atrial fibrillation/atrial flutter s/p cardiac arrest, HFrEF, hypotension, h/o htn -Outside hospital cardiac arrest with ROSC -Cardiology consulted, appreciate recommendations - S/p Cardizem gtt- d/c due to low EF; now on PO Amio -s/p vasopressor support with levophed -Echocardiogram shows left ventricular systolic function severely decreased, LVEF 25 to 30%, no pericardial effusion -proBNP 5622 -BP monitoring per protocol Respiratory: Acute hypoxic respiratory failure, right pneumothorax, Angioedema (resolved), pulmonary edema -CCM consulted, appreciate recommendations -Intubated on 10/29 and extubated on 11/11 -ABG and CXR per CCM -Bipap q HS and prn -NC during day -pulm hygiene -SPO2 monitoring -s/p right chest tube -s/p steroids for angioedema - will need additional lasix doses for pulmonary edema. GI: Protein calorie malnutrion, transaminitis likely shocked liver -24 hours -2485 mL -PPI -NTR consulted for tube feedings -Trend LFTs -BM: 11/14 -failed ST eval : Acute kidney injury likely secondary to vasomotor nephropathy, hypernatremia -Nephrology consulted, appreciate recommendations -Krishna replaced 11/05 urinary retention -Strict intake and output -Renally dose medications -Avoid nephrotoxic medications -Daily weights -FWF -FeNa 0.05 indicating pre-renal -Medically treat hyperkalemia again -Trend BMP ID: Septic shock -COVID-19 PCR negative -S/p antibiotic therapy with Rocephin and azithromycin () -S/p Levophed gtt for hypotension -Follow-up culture data -Monitor WBC and temperature curve Endo: Hyperglycemia 9resolved) -Avoid hypoglycemia -Hbg A1C 6.7 -SSI and lantus q hs (titrate as needed) -Accu-Cheks q. 6 Heme: Acute DVT in the left posterior tibial vein and bilateral peroneal veins, Leukocytosis, Anemia, retroperitoneal bleed -D-dimer greater than 10,000 -CTA chest with no evidence of PE -Bilateral lower extremity ultrasound positive for DVT -Heparin gtt on hold d/t anemia -vasuclar surgery consulted, appreciate recommendations -recommended multiphasic CT angio of the abdomen and pelvis with and without contrast if H/H drops and does not recommend IVC filter at this time as the DVTs are infrapopliteal and recommends a DVT study weekly for 2 weeks -Trend CBC -SCDs to BLE while in bed -Transfuse hemoglobin less than 7 -Monitor for signs of bleeding The high probability of a clinically significant, sudden or life threatening deterioration of the [multi] system(s) required my full and direct attention, intervention and personal management. The aggregate critical care time was [60] minutes. This time is in addition to time spent performing reported procedures but includes the following: [x] Data Review and interpretation [x] Patient assessment and monitoring of vital signs [x] Documentation [x] Medication orders and management Disposition Plan: imcu Total Time Spent with Patient (Minutes): 60 History Interval history: Interval history: This is a 66-year-old female with HTN and obesity who presented to the hospital on 10/29 via EMS with s/p cardiac arrest with CPR initiated by bystanders and upon EMS arrival a David airway was placed and ACLS was initiated. Patient had ROSC after 5-7 minutes and was started on epinephrine in route for hemodynamic support. Upon arrival to the emergency department patient GCS was noted to be 3 and she was biting the endotracheal tube with dilated pupils and copious vomitus and gastric secretions in the oropharynx/mouth/neck. David airway was removed and patient was intubated in the emergency department. Patient was ad mitted to the hospitalist service s/p cardiac arrest on sepsis and pneumonia protocol with consults to [facility]. Cardiology was consulted upon arrival to ICU. Hospital Course to Date: 10/30: Intubated and sedated, on fentanyl gtt. Open eyes spontaneously but does not follow any commands. On vasopressors, titrate as tolerated for MAP above 65. Patient febrile overnight, continue empiric IV Abx, culture data and COVID PCR pending. Patient is also s/p CT placement due to spontaneous pneumothorax. 2D echo is pending and Cardiology is consulted. 10/31: Patient remains intubated and following commands. Levophed drip stopped and potassium repleted. Patient started on tube feeding. Remains in soft bilateral restraints. 11/01: RN noted ST changes on BSM and 12 lead EKG obtained which showed ST. Given Ativan 1mg for agitation as she is maxed on fentanyl drip and IV push fentanyl did not seem to help. Patient was started on CPAP this morning by RT but remained on fentanyl drip and was having periods of apnea. Plan was to retry CPAP again in the p.m. with sedation off. 11/02: Rate increased r/t hypercapnea on ABG, sedation reduced. Given kionex for hyperkalemia and was started on levophed overnight for hypotension. 11/03: Overnight patient had tachycardia and was given Cardizem and Lopressor. Lopressor was repeated in the a.m. due to tachycardia. Patient will be started on amiodarone with a bolus per cardiology. Patient started on normal saline per liter per [facility] and steroids for angioedema. Noted to have bright red blood when suctioned from oh ETT. Remains on heparin drip as H/H is stable for now. Will reevaluate. Fentanyl drip was restarted last night due to agitation. Dr. Flores updated family today 11/04: Patient was sedated on fentanyl however off sedation is able to follow commands, a.m. labs completed in the p.m. and show hyperkalemia with increased renal function studies. Nephrology, neurology consulted by [facility]. Given Kayexalate, insulin and D50 for hyperkalemia. Patient remains on amiodarone. 11/05: Patient needed to be sedated on fentanyl again to today. overnight krishna was replaced. Hyperkalemia->given kionex 60 for 5.6. Repeat K 6-> Dr. Grant informed and requested bumex, kionex, insulin, d50, calcium gluconate and sodium bicarb with repeat BMP in 2 hours which were placed. HR remains elevated. 11/06: Patient remained in atrial fibrillation/atrial flutter with heart rate in the 150s despite being on amnio drip and was given amnio bolus, Cardizem bolus and started on Cardizem drip by cardiology. Patient is on beta-blockers p.o. scheduled and to feedings changed to Nepro. Kayexalate was given in the morning by nephrology due to hyperkalemia. 11/07: Patient is only responsive to mild stimuli, precedex added in an attempt to wean off fentanyl gtt to better assess her mental status. Neurology also on consult, pending MRI and EEG. Patient remains in Aflutter this am, HR in the 80 to 90s, still on amiodarone and heparin gtt. 11/08: Fentanyl gtt is off, only on precedex gtt. Patient is still not following any commands. MRI brain and EEG completed. Neuro recommendations noted, sedatives agents decreased. FWF added for hypernatremia and low K repleted, repeat labs ordered. Placed a call and spoke with patient's daughter, Eva Brown . She was updated on patient's conditions and status. All questions and concerns were voiced at this time. 11/09: Patient is awake and alert this am, following commands and appropriate. Remains on precedex gtt, plan for possible PST today. Hypertensive overnight, meds adjusted by Cardio and PRN Hydralazine added for SBP greater than 160. CT dislodged overnight, CXR is stable with no significant change. F/U CXR in the am. Patient's daughter, Eva Brown, visited with patient. She was updated on patient's status and goal of care for today. All questions and concerns were voiced at this time. 11/10: Mentation remains intact, still on precedex gtt. This am CXR noted still with fluid overload s/p X1 dose of IV lasix, good response from IV lasix overnight. Hypernatremia improved, D5W d/dayday. Still with persistent hypokalemia, continue electrolytes replacement and frequent lab check. Daily IV lasix and aldactone added by Cardio. Patient is also with persistent low grade fevers overnight, leukocytosis with mild improvement this am. Will get a repeat sputum culture, hold off on IV abx for now. Consider ID consult if fevers and leukocytosis persist. Patient tolerated PST X4hrs yesterday. PST again today, plan to wean to extubate if tolerated. 11/11: IAM overnight. Off precedex gtt and tolerated PST this am. Plan to wean to extubate today. Additional IV lasix given, plan to keep patient at a net negative balance for better lung compliance. F/U CXR in the am. K improved this am, repeat BMP this afternoon since diuresing. Remains with low grade fevers, leukocytosis downtrending, will continue to monitor. Speech/PT/OT ordered 11/12: S/p extubation, now stable on 3L NC. This am CXR noted with no significant changes, lasix changed to IV X4days BID. Drop in H&H this am, and Lt. flank ecchymosis noted. Heparin gtt on hold for now and orders placed for 1 unit of PRBCs and Ct Abd/Pelvis w/o con to r/o retroperitoneal bleed. Pending speech swallow eval, keep patient NPO for now. Patient is stable for IMCU status 11/13: Patient with increased WOB and tachycardia this am, patient was placed on Bipap and precedex gtt was resumed. CXR with mild improvement. CT Abd/Pelvis also reviewed large hematomas noted at the Lt. retroperitoneum and left posterior lateral abdominal wall. Heparin gtt is already on hold, patient is hemodynamically stable. Vascular Surgery consulted for possible IVC filter eval. Patient s/p 2units of PRBCs, will continue to trend H&H and transfuse if hbg is less than 7. Worsening renal function this am, IF diuretic on hold for now. Patient is also febrile with spike in wbcs most likely reactive to bleed, will panculture and hold off on IV Abx for now. Patient also failed speech bedside swallow eval yesterday, NGT in placed plan to resume enteral nutrition 11/14: Patient had bilateral lower extremity Doppler ultrasound and vascular surgery has recommended multiphasic CT angio of the abdomen and pelvis with and without contrast if H/H drops and does not recommend IVC filter at this time as the DVTs are infrapopliteal and recommends a DVT study weekly for 2 weeks. FWF 250 q4 ml per nephro. Started on as needed Xanax and p.o. amiodarone. She did not pass her ST evaluation today. Will be transferred to IMCU. 11/15: Resting comfortably on encounter. Speech cleared for pureed diet. Remains on 3l satting 98 % on bedside encounter. Does not appear to be in respiratory distress. Will continue to hold AC, No ivc filter planned at this time. qweekly doppler to monitor for migration of DVT per vascular. If demonstrated, will consider IVC filter. CBC ordered for tomorrow, will continue monitoring in light of retroperitoneal hematoma. FWF increased by nephrology to 350cc q4hr d/t hypernatremia. UOP/renal function both improved. D/w cardiology, will continue amiodorone an additional 24hrs. Plan to change dosing of metoprolol. Continue to wean off of precedex. Continue xanax scheduled for anxiety. physical therapy recs noted, fernanda / ltac will discuss with CM. Continue IMCU monitoring. 11/16: Pulmonary congestion this AM. CXR ordered. Lasix 40 mg IV x 1 order this AM. Will monitor for 24 hrs. potential downgrade to medical floor tomorrow. 11/17: Persisting pulmonary congestion, was on bipap overnight into this AM. Will order additional lasix 40 mg IV x 2. CXR ordered for AM. Possible downgrade to floor tomorrow. Anticipate d/c sunday. 11/18: Patient seen and examined, continue weaning, will continue diuresis BID, discussed with daughter. History Interval history: Patient seen and examined, resting comfortable, family at bedside, weaning oxygen as tolerated. Hospitalist Physical - Physical exam Narrative exam: General appearance: Present: no acute distress, obese - EENT Eyes: Present: PERRL, EOM intact ENT: hearing intact, dentition normal - Neck Neck: Present: normal ROM - Respiratory Respiratory effort: normal Respiratory: bilateral: CTA - Cardiovascular Rhythm: regular Heart Sounds: Present: S1 & S2, systolic murmur, diastolic murmur - Extremities Extremities: no ischemia, pulses intact, pulses symmetrical, normal temperature, normal color Peripheral Pulses: within normal limits - Abdominal General gastrointestinal: soft, non-distended, normal bowel sounds - Integumentary Integumentary: Present: warm, dry, bruising from hematoma noted. - Psychiatric Psychiatric: cooperative - Neurologic Neurologic: CNII-XII intact, moves all extremities - Allied Health Allied health notes reviewed: nursing, RT, social work - Constitutional Vitals: Temp Pulse Resp BP Pulse Ox 98.7 F 99 H 35 H 163/104 98 11/18/21 11:38 11/18/21 14:00 11/18/21 14:00 11/18/21 14:00 11/18/21 14:00 General appearance: Present: no acute distress, obese HEART Score - HEART Score Troponin: Troponin T 1.150 ng/mL (0.00-0.029) H* D 10/29/21 22:34 Results - Labs CBC & Chem 7: 11/18/21 04:53 11/18/21 04:53 Labs: Laboratory Last Values WBC 13.0 K/mm3 (4.5-11.0) H 11/18/21 04:53 RBC 2.99 M/mm3 (3.65-5.03) L 11/18/21 04:53 Hgb 8.5 gm/dl (10.1-14.3) L 11/18/21 04:53 Hct 26.4 % (30.3-42.9) L 11/18/21 04:53 MCV 88 fl (79-97) 11/18/21 04:53 MCH 28 pg (28-32) 11/18/21 04:53 MCHC 32 % (30-34) 11/18/21 04:53 RDW 15.1 % (13.2-15.2) 11/18/21 04:53 Plt Count 321 K/mm3 (140-440) 11/18/21 04:53 Lymph % (Auto) 9.5 % (13.4-35.0) L 11/18/21 04:53 [place] % (Auto) 9.8 % (0.0-7.3) H 11/18/21 04:53 Eos % (Auto) 1.8 % (0.0-4.3) 11/18/21 04:53 Baso % (Auto) 0.6 % (0.0-1.8) 11/18/21 04:53 Lymph # (Auto) 1.2 K/mm3 (1.2-5.4) 11/18/21 04:53 [place] # (Auto) 1.3 K/mm3 (0.0-0.8) H 11/18/21 04:53 Eos # (Auto) 0.2 K/mm3 (0.0-0.4) 11/18/21 04:53 Baso # (Auto) 0.1 K/mm3 (0.0-0.1) 11/18/21 04:53 Add Manual Diff Complete 11/07/21 06:30 Total Counted 100 11/07/21 06:30 Seg Neutrophils % 78.3 % (40.0-70.0) H 11/18/21 04:53 Seg Neuts % (Manual) 77.0 % (40.0-70.0) H 11/07/21 06:30 Band Neutrophils % 1.0 % 11/07/21 06:30 Lymphocytes % (Manual) 11.0 % (13.4-35.0) L 11/07/21 06:30 Reactive Lymphs % (Man) 3.0 % 11/07/21 06:30 Monocytes % (Manual) 2.0 % (0.0-7.3) 11/07/21 06:30 Eosinophils % (Manual) 0 % (0.0-4.3) 11/07/21 06:30 Basophils % (Manual) 0 % (0.0-1.8) 11/07/21 06:30 Metamyelocytes % 1.0 % 11/07/21 06:30 Myelocytes % 5.0 % 11/07/21 06:30 Promyelocytes % 0 % 11/07/21 06:30 Blast Cells % 0 % 11/07/21 06:30 Nucleated RBC % 2.0 % (0.0-0.9) H 11/07/21 06:30 Seg Neutrophils # 10.2 K/mm3 (1.8-7.7) H 11/18/21 04:53 Seg Neutrophils # Man 12.3 K/mm3 (1.8-7.7) H 11/07/21 06:30 Band Neutrophils # 0.2 K/mm3 11/07/21 06:30 Lymphocytes # (Manual) 1.8 K/mm3 (1.2-5.4) 11/07/21 06:30 Abs React Lymphs (Man) 0.5 K/mm3 11/07/21 06:30 Monocytes # (Manual) 0.3 K/mm3 (0.0-0.8) 11/07/21 06:30 Eosinophils # (Manual) 0.0 K/mm3 (0.0-0.4) 11/07/21 06:30 Basophils # (Manual) 0.0 K/mm3 (0.0-0.1) 11/07/21 06:30 Metamyelocytes # 0.2 K/mm3 11/07/21 06:30 Myelocytes # 0.8 K/mm3 11/07/21 06:30 Promyelocytes # 0.0 K/mm3 11/07/21 06:30 Blast Cells # 0.0 K/mm3 11/07/21 06:30 WBC Morphology Not Reportable 11/07/21 06:30 Hypersegmented Neuts Not Reportable 11/07/21 06:30 Hyposegmented Neuts Not Reportable 11/07/21 06:30 Hypogranular Neuts Not Reportable 11/07/21 06:30 Smudge Cells Not Reportable 11/07/21 06:30 Toxic Granulation Not Reportable 11/07/21 06:30 Toxic Vacuolation Not Reportable 11/07/21 06:30 Dohle Bodies Not Reportable 11/07/21 06:30 Pelger-Huet Anomaly Not Reportable 11/07/21 06:30 Manny Rods Not Reportable 11/07/21 06:30 Platelet Estimate Consistent w auto 11/07/21 06:30 Clumped Platelets Not Reportable 11/07/21 06:30 Plt Clumps, EDTA Not Reportable 11/07/21 06:30 Large Platelets 1+ 11/07/21 06:30 Giant Platelets Not Reportable 11/07/21 06:30 Platelet Satelliting Not Reportable 11/07/21 06:30 Plt Morphology Comment Not Reportable 11/07/21 06:30 RBC Morphology Not Reportable 11/07/21 06:30 Dimorphic RBCs Not Reportable 11/07/21 06:30 Polychromasia Not Reportable 11/07/21 06:30 Hypochromasia 1+ 11/07/21 06:30 Poikilocytosis Not Reportable 11/07/21 06:30 Anisocytosis Not Reportable 11/07/21 06:30 Microcytosis Not Reportable 11/07/21 06:30 Macrocytosis Not Reportable 11/07/21 06:30 Spherocytes 1+ 11/07/21 06:30 Pappenheimer Bodies Not Reportable 11/07/21 06:30 Sickle Cells Not Reportable 11/07/21 06:30 Target Cells 1+ 11/07/21 06:30 Tear Drop Cells Not Reportable 11/07/21 06:30 Ovalocytes Not Reportable 11/07/21 06:30 Helmet Cells Not Reportable 11/07/21 06:30 Maradiaga-Fallon Bodies Not Reportable 11/07/21 06:30 [place] Rings Not Reportable 11/07/21 06:30 [place] Cells Not Reportable 11/07/21 06:30 Bite Cells Not Reportable 11/07/21 06:30 Crenated Cell Not Reportable 11/07/21 06:30 Elliptocytes Not Reportable 11/07/21 06:30 Acanthocytes (Spur) Not Reportable 11/07/21 06:30 Rouleaux Not Reportable 11/07/21 06:30 Hemoglobin C Crystals Not Reportable 11/07/21 06:30 Schistocytes Not Reportable 11/07/21 06:30 Malaria parasites Not Reportable 11/07/21 06:30 Magdy Bodies Not Reportable 11/07/21 06:30 Hem Pathologist Commnt No 11/07/21 06:30 PT 17.2 Sec. (12.2-14.9) H 10/30/21 16:30 INR 1.27 (0.87-1.13) H 10/30/21 16:30 APTT 44.4 Sec. (24.2-36.6) H 10/30/21 16:30 D-Dimer > 92964 ng/mlDDU (0-234) H 10/30/21 Unknown Heparin Anti-Xa Level 0.62 U.I./ml (0.3-0.7) 11/12/21 03:30 ABG pH 7.475 pH Units (7.350-7.450) H 11/11/21 13:53 ABG pCO2 45.0 mm Hg 11/11/21 13:53 ABG pO2 64.1 mm Hg (80.0-90.0) L 11/11/21 13:53 ABG HCO3 32.4 mmol/L (20.0-26.0) H 11/11/21 13:53 ABG O2 Saturation 96.3 % (95.0-99.0) 11/11/21 13:53 ABG O2 Content 10.1 (0.0-44) 11/11/21 13:53 ABG Base Excess 8.0 mmol/L (-2.0-3.0) H 11/11/21 13:53 ABG Hemoglobin 7.6 gm/dl (12.0-16.0) L 11/11/21 13:53 ABG Carboxyhemoglobin 1.8 % (0.0-5.0) 11/11/21 13:53 ABG Methemoglobin 0.5 % (0.0-1.5) 11/11/21 13:53 Oxyhemoglobin 94.0 % (95.0-99.0) L 11/11/21 13:53 FiO2 32 % 11/11/21 13:53 Sodium 142 mmol/L (137-145) 11/18/21 04:53 Potassium 3.7 mmol/L (3.6-5.0) 11/18/21 04:53 Chloride 101.8 mmol/L (98-107) 11/18/21 04:53 Carbon Dioxide 30 mmol/L (22-30) 11/18/21 04:53 Anion Gap 14 mmol/L 11/18/21 04:53 BUN 18 mg/dL (7-17) H 11/18/21 04:53 Creatinine 1.0 mg/dL (0.6-1.2) 11/18/21 04:53 Estimated GFR > 60 ml/min 11/18/21 04:53 BUN/Creatinine Ratio 18 % 11/18/21 04:53 Glucose 106 mg/dL (65-100) H 11/18/21 04:53 POC Glucose 143 mg/dL (70-105) H 11/18/21 11:35 Hemoglobin A1c 6.7 % (4-6) H 10/31/21 04:30 Lactic Acid 0.70 mmol/L (0.7-2.0) 10/31/21 15:45 Calcium 8.1 mg/dL (8.4-10.2) L 11/18/21 04:53 Phosphorus 3.20 mg/dL (2.5-4.5) D 11/14/21 04:55 Magnesium 2.20 mg/dL (1.7-2.3) 11/14/21 04:55 Ferritin 208.4 ng/mL (10.0-200.0) H 10/30/21 Unknown Total Bilirubin < 0.20 mg/dL (0.1-1.2) 11/06/21 02:35 AST 21 units/L (5-40) 11/06/21 02:35 ALT 77 units/L (7-56) H 11/06/21 02:35 Alkaline Phosphatase 84 units/L (35-129) 11/06/21 02:35 Ammonia 31.0 umol/L (25-60) 10/29/21 15:10 Lactate Dehydrogenase 469 units/L (91-180) H 10/30/21 Unknown Troponin T 1.150 ng/mL (0.00-0.029) H* D 10/29/21 22:34 C-Reactive Protein 13.40 mg/dL (0.00-1.30) H 10/30/21 Unknown Total Protein 6.3 g/dL (6.3-8.2) 11/06/21 02:35 Albumin 3.0 g/dL (3.9-5) L 11/06/21 02:35 Albumin/Globulin Ratio 0.9 % 11/06/21 02:35 Triglycerides 68 mg/dL (2-149) 10/29/21 19:40 Cholesterol 98 mg/dL (50-199) 10/29/21 19:40 LDL Cholesterol Direct 43 mg/dL (50-130) L 10/29/21 19:40 HDL Cholesterol 50 mg/dL (40-59) 10/29/21 19:40 Cholesterol/HDL Ratio 1.96 % 10/29/21 19:40 Procalcitonin 61.95 ng/mL (<0.15) 10/30/21 Unknown TSH 3.080 mlU/mL (0.270-4.200) 10/29/21 15:10 Urine Color Yellow (Yellow) 11/13/21 08:30 Urine Turbidity Slightly-cloudy (Clear) 11/13/21 08:30 Urine pH 6.0 (5.0-7.0) 11/13/21 08:30 Ur Specific [place] 1.010 (1.003-1.030) 11/13/21 08:30 Urine Protein <15 mg/dl mg/dL (Negative) 11/13/21 08:30 Urine Glucose (UA) Neg mg/dL (Negative) 11/13/21 08:30 Urine Ketones Tr mg/dL (Negative) 11/13/21 08:30 Urine Blood Sm (Negative) 11/13/21 08:30 Urine Nitrite Neg (Negative) 11/13/21 08:30 Urine Bilirubin Neg (Negative) 11/13/21 08:30 Urine Urobilinogen < 2.0 mg/dL (<2.0) 11/13/21 08:30 Ur Leukocyte Esterase Neg (Negative) 11/13/21 08:30 Urine WBC (Auto) < 1.0 /HPF (0.0-6.0) 11/13/21 08:30 Urine RBC (Auto) < 1.0 /HPF (0.0-6.0) 11/13/21 08:30 U Epithel Cells (Auto) < 1.0 /HPF (0-13.0) 11/13/21 08:30 Urine Mucus Few /HPF 10/29/21 18:15 Urine Eosinophils None seen (None Seen) 11/04/21 Unknown Urine Creatinine 190.9 mg/dL (0.1-20.0) H 11/04/21 Unknown Protein/Creatinin Ratio 0.90 11/04/21 Unknown Urine Sodium 10 mmol/L 11/04/21 Unknown Urine Total Protein 172 mg/dL (5-11.8) H 11/04/21 Unknown Salicylates < 0.3 mg/dL (2.8-20.0) L 10/29/21 15:10 Urine Opiates Screen Negative 10/29/21 18:15 Urine Methadone Screen Negative 10/29/21 18:15 Acetaminophen 5.0 ug/mL (10.0-30.0) L 10/29/21 15:10 Ur Barbiturates Screen Negative 10/29/21 18:15 Ur Phencyclidine Scrn Negative 10/29/21 18:15 Ur Amphetamines Screen Negative 10/29/21 18:15 U Benzodiazepines Scrn Negative 10/29/21 18:15 Urine Cocaine Screen Negative 10/29/21 18:15 U Marijuana (THC) Screen Negative 10/29/21 18:15 Drugs of Abuse Note Disclamer 10/29/21 18:15 Plasma/Serum Alcohol < 0.01 % (0-0.07) 10/29/21 15:10 Coronavirus (PCR) Negative (Negative) 10/30/21 Unknown Blood Type O POSITIVE 11/12/21 04:15 Antibody Screen Negative 11/12/21 04:15 Crossmatch See Detail 11/12/21 04:15 Microbiology: Microbiology 11/13/21 08:38 Peripheral/Venous Blood Culture - Final NO GROWTH AFTER 5 DAYS 11/13/21 08:38 Peripheral/Venous Blood Culture - Final NO GROWTH AFTER 5 DAYS Krishna/IV: Voiding Method Indwelling Catheter Active Medications - Current Medications Current Medications: Generic Name Dose Route Start Last Admin Trade Name Freq PRN Reason Stop Dose Admin Acetaminophen 650 mg 10/29/21 17:04 11/12/21 22:53 Acetaminophen 650 Mg Rect Supp [place] 650 mg Q6H PRN Administration Pain MILD(1-3)/Fever >100.5/NIEVES Alprazolam 0.25 mg 11/14/21 14:29 11/16/21 05:02 Alprazolam 0.25 Mg Tab PO 0.25 mg Q8H PRN Administration Anxiety Dextrose 0 ml 11/04/21 13:48 11/12/21 05:45 Dextrose 10% *Hypoglycemia IV 50 ml PRN PRN Administration Hypoglycemia Docusate Sodium 100 mg 11/18/21 15:00 11/18/21 15:07 Docusate Sodium 100 Mg Cap PO Not Given BID [facility] Famotidine 10 mg 11/06/21 10:00 11/18/21 10:16 Famotidine 10 Mg Tab PO 10 mg BID RAMON Administration Furosemide 20 mg 11/18/21 10:00 11/18/21 10:16 Furosemide 20 Mg/2 Ml Inj IV 20 mg BID RAMON Administration Hydrophilic Ointment 1 applic 10/29/21 14:29 11/09/21 08:51 Lip Therapy Vaseline TP 1 applic Q2HR PRN Administration Dry Lips Insulin Human Lispro 0 unit 10/30/21 16:00 11/18/21 15:07 Insulin Lispro 100 Unit/Ml SUB-Q Not Given Q6HR [facility] Protocol Lactulose 20 gm 11/18/21 14:43 11/18/21 15:06 Lactulose 20 Gm/30 Ml Oral Liqd PO 20 gm Q6H PRN Administration Constipation Losartan Potassium 25 mg 11/17/21 13:00 11/18/21 10:16 Losartan 25 Mg Tab PO 25 mg QDAY RAMON Administration Metoprolol Tartrate 100 mg 11/16/21 22:00 11/18/21 10:15 Metoprolol Tartrate 100 Mg Tab PO 100 mg BID RAMON Administration Morphine Sulfate 2 mg 11/16/21 21:16 Morphine 4 Mg/1 Ml Inj IV Q3H PRN Pain, Moderate (4-6) Multi-Ingred Cream/Lotion/Oil/Oint 1 applic 10/29/21 14:29 11/06/21 09:25 Mineral Oil/Petrolatum, White Ophth Oint 3.5 Gm OU 1 applic Q4HR PRN Administration Dry Eye(s) Senna/Docusate Sodium 1 tab 11/16/21 22:00 11/18/21 10:16 Sennosides/Docusate Sodium 8.6/50 Mg Tab PO 1 tab BID RAMON Administration Sodium Chloride 10 ml 10/29/21 22:00 11/18/21 10:16 Sodium Chloride 0.9% 10 Ml Flush Syringe IV 10 ml BID RAMON Administration Sodium Chloride 10 ml 10/29/21 17:04 Sodium Chloride 0.9% 10 Ml Flush Syringe IV PRN PRN LINE FLUSH Spironolactone 25 mg 11/10/21 10:00 11/18/21 10:15 Spironolactone 25 Mg Tab PO 25 mg QDAY RAMON Administration Nutrition/Malnutrition Assess - Dietary Evaluation Nutrition/Malnutrition Findings: Nutrition Notes Start: 10/30/21 09:50 Freq: Status: Active Protocol: Document 11/17/21 14:55 MEENU (Rec: 11/17/21 15:13 MEENU [id number]) Nutrition Notes Current Diagnosis Sepsis,Hypertension, Respiratory Failure Other Pertinent Diagnosis s/p Cardiac Arrest, DVT, Anemia, Pneumonia, Pneumothorax, P Edema, HFrEF.. . Current Diet Pureed Diet (since L 11/15). Height 5 ft 10 in Weight 112 kg [place] Body Weight (kg) 68.18 BMI 35.4 Weight change and time frame No body weight change reported in 2 days. Weight Status Obese Subjective/Other Information RD consulr for routine F/U on Diet tolerance/advancement. Reports on Pt's PO intake show that pt has a preference for Dinner (100%), that Breakfast or Lunch (0-50%), according to ADL notes. Plans for discharge Pt on . Percent of energy/protein needs met: Prescribed Pureed Diet provides for energy/protein needs (1,804 Kcal/77 g) during LOS. #1 Nutrition Diagnosis Inadequate oral intake Comments: Reports on Pt's PO intake show that pt has a preference for Dinner (100%), that Breakfast or Lunch (0-50%), according to ADL notes. Diagnosis Progress(for reassessment Improved documentation) Is patient on ventilator? No Is Patient Ambulatory and/or Out of Bed No REE-([facility]-confined to bed) 2086.388 Kcal/Kg value to use for calculation 15 Approximate Energy Requirements Using 1680 kcal/Kg Calculation Used for Recommendations Kcal/kg Additional Notes Protein: 0.8-1.2 g/Kg IBW; 70- 105 g/day. Fluids: 1 ml/Kcal, or as per MD. Nutrition Intervention Change Diet Order: Continue Pureed Diet. Goal #1 Maintain body weight within +/ -3% of admission body weight during LOS. Goal #2 Facilitate PO intake of meals with mechanical modification during LOS. Follow-Up By: 11/24/21 Additional Comments Continue monitoring food tolerance, %PO intake of meals , and BM.
--- NOTE | 2021-11-18 18:23 | Progress Note ---
Assessment and Plan 66 YO Female with Obesity presents to ED for evaluation. Patient is intubated and on ventilatory support . [facility] the patient collapsed and lost consciousness. Witnesses began CPR. EMS was notified and upon arrival the patient was found to be in distress without perfusing cardiac rhythm. Patient initiated on ACLS protocol and subsequently intubated in the field and subsequent transported to [facility] for further care and evaluation of the aforementioned symptoms. The patient regained spontaneous ci rculation during transport. Patient seen and evaluated upon arrival and found to have acute hypoxemic respiratory failure, septic shock suspected secondary to aspiration pneumonia, metabolic acidosis, toxic metabolic encephalopathy, shock liver, and cardiac arrest with return of perfusing cardiac rhythm after initiation of ACLS protocol. Patient initiated on sepsis protocol as well as pneumonia protocol. Patient admitted to ICU. No reports of fever, chills, chest pain, palpitation, productive cough, skin rash, recent contact, known exposure to COVID-19. Patient has history of diabetes and hypertension. According to the chart review, patient has no history of smoking, alcohol or drug abuse. Patient eventually extubated. Patient presently on 4 litres O2. O2 saturation 100%. BIPAP 18/8, Rate 14, FIO2 30% stand by in the room. Patient Obese sleeping at this time. No acute respiratory distress. Patient running low grade temp. Has leukocytosis. Blood pressure 157/97, pulse 79, Respirations 27. Chest xray done 11/18/21 reported Improving interstitial edema. Patient presently on Lasix and famotidine. I spent critical care time of 40 minutes, review the chart, examine the patient, review lab results, chest xray, talking to the nursing staff and respiratory therapy and work out plan of treatment in this critically ill patient. - Patient Problems (1) Acute hypoxemic respiratory failure Current Visit: Yes Status: Acute Plan to address problem: Patient presently on 4 litres O2. O2 saturation 100%. BIPAP 18/8, rate 14, FIO2 30% stand by in the room. Recommend DVT prophylaxis, SCDs Continue famotidine. (2) Acute metabolic encephalopathy Current Visit: Yes Status: Acute Plan to address problem: Management as per primary care. (3) Atrial fibrillation and flutter Current Visit: Yes Status: Acute Plan to address problem: Management as per cardiology. (4) Acute kidney injury Current Visit: Yes Status: Acute Plan to address problem: Management as per nephrology. Subjective Date of service: 11/18/21 Principal diagnosis: AHRF; Cardiac arrest; R. pneumothorax; pneumonia; AMS; DVT's; SIERRA; Obesity Interval history: 66 YO Female with Obesity presents to ED for evaluation. Patient is intubated and on ventilatory support . [facility] when the patient collapsed and lost consciousness. Witnesses began CPR. EMS was notified and upon arrival the patient was found to be in distress without perfusing cardiac rhythm. Patient initiated on ACLS protocol and subsequently intubated in the field and subsequent transported to [facility] for further care and evaluation of the aforementioned symptoms. The patient regained spontaneous circulation during transport. Patient seen and evaluated upon arrival and found to have acute hypoxemic respiratory failure, septic shock suspected secondary to aspiration pneumonia, metabolic acidosis, toxic metabolic encephalopathy, shock liver, and cardiac arrest with return of perfusing cardiac rhythm after initiation of ACLS protocol. Patient initiated on sepsis protocol as well as pneumonia protocol. Patient admitted to ICU. No reports of fever, chills, chest pain, palpitation, productive cough, skin rash, recent contact, known exposure to COVID-19. Patient has history of diabetes and hypertension. According to the chart review, patient has no history of smoking, alcohol or drug abuse. Patient eventually extubated. Patient presently on 4 litres O2. O2 saturation 100%. BIPAP 18/8, Rate 14, FIO2 30% stand by in the room. Patient Obese sleeping at this time. No acute respiratory distress. Patient running low grade temp. Has leukocytosis. Blood pressure 157/97, pulse 79, Respirations 27. Chest xray done 11/18/21 reported Improving interstitial edema. Patient presently on Lasix and famotidine. Objective Vital Signs - 12hr 11/18/21 11/18/21 11/18/21 07:00 08:00 09:00 Temperature Pulse Rate 74 73 79 Pulse Rate [ 90 From Monitor] Respiratory 31 H 28 H 31 H Rate Blood Pressure 158/89 150/75 163/94 O2 Sat by Pulse 97 95 99 Oximetry 11/18/21 11/18/21 11/18/21 10:00 10:15 10:16 Temperature Pulse Rate 83 87 88 Pulse Rate [ From Monitor] Respiratory 33 H Rate Blood Pressure 167/93 167/93 167/93 O2 Sat by Pulse 99 Oximetry 11/18/21 11/18/21 11/18/21 11:00 11:38 12:00 Temperature 98.7 F Pulse Rate 70 101 H Pulse Rate [ 94 H From Monitor] Respiratory 33 H 18 Rate Blood Pressure 163/90 166/90 O2 Sat by Pulse 98 97 Oximetry 11/18/21 11/18/21 11/18/21 13:00 14:00 15:00 Temperature Pulse Rate 101 H 99 H 102 H Pulse Rate [ From Monitor] Respiratory 34 H 35 H 28 H Rate Blood Pressure 143/98 163/104 167/95 O2 Sat by Pulse 97 98 Oximetry 11/18/21 11/18/21 16:00 17:01 Temperature Pulse Rate 78 81 Pulse Rate [ 96 H From Monitor] Respiratory 35 H 28 H Rate Blood Pressure 166/102 140/119 O2 Sat by Pulse 99 97 Oximetry Constitutional: no acute distress, asleep Eyes: non-icteric, other (+ mild periorbital phymosis) ENT: oropharynx moist Neck: supple, no lymphadenopathy, no JVD, other (large circumference) Effort: mildly labored Ascultation: Bilateral: diminished breath sounds, rhonchi (scant) Percussion: Bilateral: not dull Cardiovascular: irregular rhythm, other (no R/M) Gastrointestinal: normoactive bowel sounds, soft, non-tender, other (obese) Integumentary: normal, other (Left flank ecchymosis with induration) Extremities: no cyanosis, pulses normal, no ischemia or petechiae, edema (2+) Neurologic: non-focal exam (grossly), pupils equal and round, other (Patient sleeping at this time.) Psychiatric: other (Unable to assess, Patient sleeping at this time.) CBC and BMP: 11/18/21 04:53 11/18/21 04:53 ABG, PT/INR, D-dimer: ABG ABG pH 7.475 pH Units (7.350-7.450) H 11/11/21 13:53 ABG pCO2 45.0 mm Hg 11/11/21 13:53 ABG pO2 64.1 mm Hg (80.0-90.0) L 11/11/21 13:53 ABG O2 Saturation 96.3 % (95.0-99.0) 11/11/21 13:53 PT/INR, D-dimer PT 17.2 Sec. (12.2-14.9) H 10/30/21 16:30 INR 1.27 (0.87-1.13) H 10/30/21 16:30 D-Dimer > 79746 ng/mlDDU (0-234) H 10/30/21 Unknown Abnormal lab findings: Abnormal Labs 10/29/21 10/29/21 10/29/21 15:10 15:10 15:10 WBC 27.8 H RBC Hgb Hct MCH 27 L RDW Plt Count Lymph % (Auto) [place] % (Auto) Lymph # (Auto) [place] # (Auto) Seg Neutrophils % Seg Neuts % (Manual) 78.0 H Lymphocytes % (Manual) 10.0 L Nucleated RBC % Seg Neutrophils # Seg Neutrophils # Man 21.7 H Monocytes # (Manual) 1.4 H PT INR APTT D-Dimer Heparin Anti-Xa Level ABG pH ABG pO2 ABG HCO3 ABG O2 Saturation ABG Base Excess ABG Hemoglobin Oxyhemoglobin Sodium Potassium Chloride Carbon Dioxide BUN Creatinine Glucose POC Glucose Hemoglobin A1c Lactic Acid 6.80 H* Calcium Phosphorus Magnesium Ferritin AST ALT Alkaline Phosphatase Lactate Dehydrogenase Troponin T 0.089 H C-Reactive Protein Total Protein Albumin LDL Cholesterol Direct Urine Creatinine Urine Total Protein Salicylates Acetaminophen Crossmatch 10/29/21 10/29/21 10/29/21 15:10 15:10 15:10 WBC RBC Hgb Hct MCH RDW Plt Count Lymph % (Auto) [place] % (Auto) Lymph # (Auto) [place] # (Auto) Seg Neutrophils % Seg Neuts % (Manual) Lymphocytes % (Manual) Nucleated RBC % Seg Neutrophils # Seg Neutrophils # Man Monocytes # (Manual) PT INR APTT D-Dimer Heparin Anti-Xa Level ABG pH ABG pO2 ABG HCO3 ABG O2 Saturation ABG Base Excess ABG Hemoglobin Oxyhemoglobin Sodium 136 L Potassium 2.8 L* Chloride 93.4 L Carbon Dioxide 20 L BUN Creatinine Glucose 330 H POC Glucose Hemoglobin A1c Lactic Acid Calcium Phosphorus Magnesium Ferritin AST 1013 H ALT 1289 H Alkaline Phosphatase 246 H Lactate Dehydrogenase Troponin T C-Reactive Protein Total Protein Albumin LDL Cholesterol Direct Urine Creatinine Urine Total Protein Salicylates < 0.3 L Acetaminophen 5.0 L Crossmatch 10/29/21 10/29/21 10/29/21 15:11 16:01 19:29 WBC RBC Hgb Hct MCH RDW Plt Count Lymph % (Auto) [place] % (Auto) Lymph # (Auto) [place] # (Auto) Seg Neutrophils % Seg Neuts % (Manual) Lymphocytes % (Manual) Nucleated RBC % Seg Neutrophils # Seg Neutrophils # Man Monocytes # (Manual) PT INR APTT D-Dimer Heparin Anti-Xa Level ABG pH 7.307 L ABG pO2 64.1 L ABG HCO3 ABG O2 Saturation 90.8 L ABG Base Excess -2.9 L ABG Hemoglobin Oxyhemoglobin 89.3 L Sodium Potassium Chloride Carbon Dioxide BUN Creatinine Glucose POC Glucose Hemoglobin A1c Lactic Acid 2.60 H* Calcium Phosphorus Magnesium 2.90 H Ferritin AST ALT Alkaline Phosphatase Lactate Dehydrogenase Troponin T C-Reactive Protein Total Protein Albumin LDL Cholesterol Direct Urine Creatinine Urine Total Protein Salicylates Acetaminophen Crossmatch 10/29/21 10/29/21 10/30/21 19:40 22:34 04:30 WBC 16.2 H RBC Hgb Hct MCH 26 L RDW 15.5 H Plt Count Lymph % (Auto) 6.2 L [place] % (Auto) Lymph # (Auto) 1.0 L [place] # (Auto) 0.9 H Seg Neutrophils % 88.1 H Seg Neuts % (Manual) Lymphocytes % (Manual) Nucleated RBC % Seg Neutrophils # 14.2 H Seg Neutrophils # Man Monocytes # (Manual) PT INR APTT D-Dimer Heparin Anti-Xa Level ABG pH ABG pO2 ABG HCO3 ABG O2 Saturation ABG Base Excess ABG Hemoglobin Oxyhemoglobin Sodium Potassium Chloride Carbon Dioxide BUN Creatinine Glucose POC Glucose Hemoglobin A1c Lactic Acid Calcium Phosphorus Magnesium Ferritin AST ALT Alkaline Phosphatase Lactate Dehydrogenase Troponin T 1.950 H* D 1.150 H* D C-Reactive Protein Total Protein Albumin LDL Cholesterol Direct 43 L Urine Creatinine Urine Total Protein Salicylates Acetaminophen Crossmatch 10/30/21 10/30/21 10/30/21 04:30 04:35 05:45 WBC RBC Hgb Hct MCH RDW Plt Count Lymph % (Auto) [place] % (Auto) Lymph # (Auto) [place] # (Auto) Seg Neutrophils % Seg Neuts % (Manual) Lymphocytes % (Manual) Nucleated RBC % Seg Neutrophils # Seg Neutrophils # Man Monocytes # (Manual) PT INR APTT D-Dimer Heparin Anti-Xa Level ABG pH ABG pO2 69.5 L ABG HCO3 ABG O2 Saturation ABG Base Excess -2.7 L ABG Hemoglobin Oxyhemoglobin 94.7 L Sodium Potassium Chloride Carbon Dioxide 21 L BUN Creatinine Glucose 159 H POC Glucose 151 H Hemoglobin A1c Lactic Acid Calcium 7.9 L D Phosphorus Magnesium Ferritin AST 461 H ALT 686 H Alkaline Phosphatase 130 H Lactate Dehydrogenase Troponin T C-Reactive Protein Total Protein 5.6 L D Albumin 3.2 L LDL Cholesterol Direct Urine Creatinine Urine Total Protein Salicylates Acetaminophen Crossmatch 10/30/21 10/30/21 10/30/21 11:24 15:59 16:30 WBC RBC Hgb Hct MCH RDW Plt Count Lymph % (Auto) [place] % (Auto) Lymph # (Auto) [place] # (Auto) Seg Neutrophils % Seg Neuts % (Manual) Lymphocytes % (Manual) Nucleated RBC % Seg Neutrophils # Seg Neutrophils # Man Monocytes # (Manual) PT 17.2 H INR 1.27 H APTT 44.4 H D-Dimer Heparin Anti-Xa Level ABG pH ABG pO2 ABG HCO3 ABG O2 Saturation ABG Base Excess ABG Hemoglobin Oxyhemoglobin Sodium Potassium Chloride Carbon Dioxide BUN Creatinine Glucose POC Glucose 153 H 109 H Hemoglobin A1c Lactic Acid Calcium Phosphorus Magnesium Ferritin AST ALT Alkaline Phosphatase Lactate Dehydrogenase Troponin T C-Reactive Protein Total Protein Albumin LDL Cholesterol Direct Urine Creatinine Urine Total Protein Salicylates Acetaminophen Crossmatch 10/30/21 10/30/21 10/30/21 23:00 Unknown Unknown WBC RBC Hgb Hct MCH RDW Plt Count Lymph % (Auto) [place] % (Auto) Lymph # (Auto) [place] # (Auto) Seg Neutrophils % Seg Neuts % (Manual) Lymphocytes % (Manual) Nucleated RBC % Seg Neutrophils # Seg Neutrophils # Man Monocytes # (Manual) PT INR APTT D-Dimer > 69718 H Heparin Anti-Xa Level 0.82 H ABG pH ABG pO2 ABG HCO3 ABG O2 Saturation ABG Base Excess ABG Hemoglobin Oxyhemoglobin Sodium Potassium Chloride Carbon Dioxide BUN Creatinine Glucose POC Glucose Hemoglobin A1c Lactic Acid Calcium Phosphorus Magnesium Ferritin 208.4 H AST ALT Alkaline Phosphatase Lactate Dehydrogenase Troponin T C-Reactive Protein Total Protein Albumin LDL Cholesterol Direct Urine Creatinine Urine Total Protein Salicylates Acetaminophen Crossmatch 10/30/21 10/31/21 10/31/21 Unknown 04:30 04:30 WBC 14.4 H RBC Hgb Hct MCH 26 L RDW Plt Count Lymph % (Auto) [place] % (Auto) Lymph # (Auto) [place] # (Auto) Seg Neutrophils % Seg Neuts % (Manual) Lymphocytes % (Manual) Nucleated RBC % Seg Neutrophils # Seg Neutrophils # Man Monocytes # (Manual) PT INR APTT D-Dimer Heparin Anti-Xa Level ABG pH ABG pO2 ABG HCO3 ABG O2 Saturation ABG Base Excess ABG Hemoglobin Oxyhemoglobin Sodium Potassium 3.5 L Chloride 107.5 H Carbon Dioxide 20 L BUN 28 H Creatinine 1.7 H Glucose 113 H POC Glucose Hemoglobin A1c Lactic Acid Calcium 7.9 L Phosphorus Magnesium Ferritin AST ALT Alkaline Phosphatase Lactate Dehydrogenase 469 H Troponin T C-Reactive Protein 13.40 H Total Protein Albumin LDL Cholesterol Direct Urine Creatinine Urine Total Protein Salicylates Acetaminophen Crossmatch 10/31/21 10/31/21 10/31/21 04:30 05:11 15:30 WBC RBC Hgb Hct MCH RDW Plt Count Lymph % (Auto) [place] % (Auto) Lymph # (Auto) [place] # (Auto) Seg Neutrophils % Seg Neuts % (Manual) Lymphocytes % (Manual) Nucleated RBC % Seg Neutrophils # Seg Neutrophils # Man Monocytes # (Manual) PT INR APTT D-Dimer Heparin Anti-Xa Level ABG pH 7.222 L ABG pO2 61.5 L ABG HCO3 ABG O2 Saturation 86.2 L ABG Base Excess -6.3 L ABG Hemoglobin 11.2 L Oxyhemoglobin 84.5 L Sodium Potassium Chloride Carbon Dioxide BUN Creatinine Glucose POC Glucose 106 H Hemoglobin A1c 6.7 H Lactic Acid Calcium Phosphorus Magnesium Ferritin AST ALT Alkaline Phosphatase Lactate Dehydrogenase Troponin T C-Reactive Protein Total Protein Albumin LDL Cholesterol Direct Urine Creatinine Urine Total Protein Salicylates Acetaminophen Crossmatch 10/31/21 10/31/21 10/31/21 16:07 16:35 17:45 WBC RBC Hgb Hct MCH RDW Plt Count Lymph % (Auto) [place] % (Auto) Lymph # (Auto) [place] # (Auto) Seg Neutrophils % Seg Neuts % (Manual) Lymphocytes % (Manual) Nucleated RBC % Seg Neutrophils # Seg Neutrophils # Man Monocytes # (Manual) PT INR APTT D-Dimer Heparin Anti-Xa Level ABG pH 7.267 L ABG pO2 58.3 L ABG HCO3 ABG O2 Saturation 88.3 L ABG Base Excess -5.9 L ABG Hemoglobin 10.1 L Oxyhemoglobin 86.5 L Sodium Potassium Chloride Carbon Dioxide BUN Creatinine Glucose POC Glucose 115 H Hemoglobin A1c Lactic Acid Calcium Phosphorus Magnesium Ferritin AST ALT Alkaline Phosphatase Lactate Dehydrogenase Troponin T C-Reactive Protein Total Protein Albumin LDL Cholesterol Direct Urine Creatinine 383.6 H Urine Total Protein Salicylates Acetaminophen Crossmatch 11/01/21 11/01/21 11/01/21 00:06 05:08 06:00 WBC 12.6 H RBC 3.43 L Hgb 8.9 L Hct 28.7 L MCH 26 L RDW 15.7 H Plt Count 130 L Lymph % (Auto) [place] % (Auto) Lymph # (Auto) [place] # (Auto) Seg Neutrophils % Seg Neuts % (Manual) Lymphocytes % (Manual) Nucleated RBC % Seg Neutrophils # Seg Neutrophils # Man Monocytes # (Manual) PT INR APTT D-Dimer Heparin Anti-Xa Level ABG pH ABG pO2 ABG HCO3 ABG O2 Saturation ABG Base Excess ABG Hemoglobin Oxyhemoglobin Sodium Potassium Chloride Carbon Dioxide BUN Creatinine Glucose POC Glucose 114 H 120 H Hemoglobin A1c Lactic Acid Calcium Phosphorus Magnesium Ferritin AST ALT Alkaline Phosphatase Lactate Dehydrogenase Troponin T C-Reactive Protein Total Protein Albumin LDL Cholesterol Direct Urine Creatinine Urine Total Protein Salicylates Acetaminophen Crossmatch 11/01/21 11/01/21 11/01/21 06:00 11:43 14:00 WBC RBC Hgb Hct MCH RDW Plt Count Lymph % (Auto) [place] % (Auto) Lymph # (Auto) [place] # (Auto) Seg Neutrophils % Seg Neuts % (Manual) Lymphocytes % (Manual) Nucleated RBC % Seg Neutrophils # Seg Neutrophils # Man Monocytes # (Manual) PT INR APTT D-Dimer Heparin Anti-Xa Level ABG pH 7.349 L ABG pO2 75.6 L ABG HCO3 ABG O2 Saturation ABG Base Excess -3.9 L ABG Hemoglobin 9.8 L Oxyhemoglobin 93.5 L Sodium Potassium Chloride 114.1 H Carbon Dioxide 20 L BUN 33 H Creatinine Glucose 131 H POC Glucose 151 H Hemoglobin A1c Lactic Acid Calcium 7.7 L Phosphorus Magnesium Ferritin AST 79 H ALT 259 H Alkaline Phosphatase Lactate Dehydrogenase Troponin T C-Reactive Protein Total Protein 5.5 L Albumin 2.7 L LDL Cholesterol Direct Urine Creatinine Urine Total Protein Salicylates Acetaminophen Crossmatch 11/01/21 11/01/21 11/02/21 16:45 22:55 05:12 WBC RBC Hgb Hct MCH RDW Plt Count Lymph % (Auto) [place] % (Auto) Lymph # (Auto) [place] # (Auto) Seg Neutrophils % Seg Neuts % (Manual) Lymphocytes % (Manual) Nucleated RBC % Seg Neutrophils # Seg Neutrophils # Man Monocytes # (Manual) PT INR APTT D-Dimer Heparin Anti-Xa Level ABG pH ABG pO2 ABG HCO3 ABG O2 Saturation ABG Base Excess ABG Hemoglobin Oxyhemoglobin Sodium Potassium Chloride Carbon Dioxide BUN Creatinine Glucose POC Glucose 119 H 129 H 140 H Hemoglobin A1c Lactic Acid Calcium Phosphorus Magnesium Ferritin AST ALT Alkaline Phosphatase Lactate Dehydrogenase Troponin T C-Reactive Protein Total Protein Albumin LDL Cholesterol Direct Urine Creatinine Urine Total Protein Salicylates Acetaminophen Crossmatch 11/02/21 11/02/21 11/02/21 05:35 05:35 09:35 WBC 13.5 H RBC 3.60 L Hgb 9.7 L Hct MCH 27 L RDW 15.7 H Plt Count Lymph % (Auto) [place] % (Auto) Lymph # (Auto) [place] # (Auto) Seg Neutrophils % Seg Neuts % (Manual) Lymphocytes % (Manual) Nucleated RBC % Seg Neutrophils # Seg Neutrophils # Man Monocytes # (Manual) PT INR APTT D-Dimer Heparin Anti-Xa Level ABG pH 7.208 L ABG pO2 75.9 L ABG HCO3 ABG O2 Saturation 93.6 L ABG Base Excess -4.3 L ABG Hemoglobin 9.1 L Oxyhemoglobin 91.6 L Sodium Potassium 5.2 H D Chloride 112.6 H Carbon Dioxide BUN 32 H Creatinine Glucose 152 H POC Glucose Hemoglobin A1c Lactic Acid Calcium 8.2 L Phosphorus Magnesium 2.70 H Ferritin AST ALT Alkaline Phosphatase Lactate Dehydrogenase Troponin T C-Reactive Protein Total Protein Albumin LDL Cholesterol Direct Urine Creatinine Urine Total Protein Salicylates Acetaminophen Crossmatch 11/02/21 11/02/21 11/02/21 11:44 17:13 23:43 WBC RBC Hgb Hct MCH RDW Plt Count Lymph % (Auto) [place] % (Auto) Lymph # (Auto) [place] # (Auto) Seg Neutrophils % Seg Neuts % (Manual) Lymphocytes % (Manual) Nucleated RBC % Seg Neutrophils # Seg Neutrophils # Man Monocytes # (Manual) PT INR APTT D-Dimer Heparin Anti-Xa Level ABG pH ABG pO2 ABG HCO3 ABG O2 Saturation ABG Base Excess ABG Hemoglobin Oxyhemoglobin Sodium Potassium Chloride Carbon Dioxide BUN Creatinine Glucose POC Glucose 173 H 148 H 137 H Hemoglobin A1c Lactic Acid Calcium Phosphorus Magnesium Ferritin AST ALT Alkaline Phosphatase Lactate Dehydrogenase Troponin T C-Reactive Protein Total Protein Albumin LDL Cholesterol Direct Urine Creatinine Urine Total Protein Salicylates Acetaminophen Crossmatch 11/03/21 11/03/21 11/03/21 04:59 06:00 06:00 WBC RBC 3.43 L Hgb 9.1 L Hct 29.0 L MCH 26 L RDW 16.4 H Plt Count Lymph % (Auto) [place] % (Auto) Lymph # (Auto) [place] # (Auto) Seg Neutrophils % Seg Neuts % (Manual) Lymphocytes % (Manual) Nucleated RBC % Seg Neutrophils # Seg Neutrophils # Man Monocytes # (Manual) PT INR APTT D-Dimer Heparin Anti-Xa Level 0.17 L ABG pH ABG pO2 ABG HCO3 ABG O2 Saturation ABG Base Excess ABG Hemoglobin Oxyhemoglobin Sodium Potassium Chloride Carbon Dioxide BUN Creatinine Glucose POC Glucose 167 H Hemoglobin A1c Lactic Acid Calcium Phosphorus Magnesium Ferritin AST ALT Alkaline Phosphatase Lactate Dehydrogenase Troponin T C-Reactive Protein Total Protein Albumin LDL Cholesterol Direct Urine Creatinine Urine Total Protein Salicylates Acetaminophen Crossmatch 11/03/21 11/03/21 11/03/21 06:00 09:20 11:58 WBC RBC Hgb Hct MCH RDW Plt Count Lymph % (Auto) [place] % (Auto) Lymph # (Auto) [place] # (Auto) Seg Neutrophils % Seg Neuts % (Manual) Lymphocytes % (Manual) Nucleated RBC % Seg Neutrophils # Seg Neutrophils # Man Monocytes # (Manual) PT INR APTT D-Dimer Heparin Anti-Xa Level ABG pH 7.274 L ABG pO2 75.6 L ABG HCO3 ABG O2 Saturation 94.9 L ABG Base Excess -2.5 L ABG Hemoglobin 9.3 L Oxyhemoglobin 92.9 L Sodium 149 H Potassium Chloride 117.5 H Carbon Dioxide BUN 32 H Creatinine Glucose 173 H POC Glucose 192 H Hemoglobin A1c Lactic Acid Calcium 8.1 L Phosphorus Magnesium Ferritin AST ALT Alkaline Phosphatase Lactate Dehydrogenase Troponin T C-Reactive Protein Total Protein Albumin LDL Cholesterol Direct Urine Creatinine Urine Total Protein Salicylates Acetaminophen Crossmatch 11/03/21 11/03/21 11/04/21 18:22 Unknown 00:09 WBC RBC Hgb Hct MCH RDW Plt Count Lymph % (Auto) [place] % (Auto) Lymph # (Auto) [place] # (Auto) Seg Neutrophils % Seg Neuts % (Manual) Lymphocytes % (Manual) Nucleated RBC % Seg Neutrophils # Seg Neutrophils # Man Monocytes # (Manual) PT INR APTT D-Dimer Heparin Anti-Xa Level 0.29 L ABG pH ABG pO2 ABG HCO3 ABG O2 Saturation ABG Base Excess ABG Hemoglobin Oxyhemoglobin Sodium Potassium Chloride Carbon Dioxide BUN Creatinine Glucose POC Glucose 178 H 221 H Hemoglobin A1c Lactic Acid Calcium Phosphorus Magnesium Ferritin AST ALT Alkaline Phosphatase Lactate Dehydrogenase Troponin T C-Reactive Protein Total Protein Albumin LDL Cholesterol Direct Urine Creatinine Urine Total Protein Salicylates Acetaminophen Crossmatch 11/04/21 11/04/21 11/04/21 05:09 09:40 09:40 WBC 16.8 H RBC Hgb Hct MCH 27 L RDW 16.5 H Plt Count Lymph % (Auto) [place] % (Auto) Lymph # (Auto) [place] # (Auto) Seg Neutrophils % Seg Neuts % (Manual) Lymphocytes % (Manual) Nucleated RBC % Seg Neutrophils # Seg Neutrophils # Man Monocytes # (Manual) PT INR APTT D-Dimer Heparin Anti-Xa Level ABG pH ABG pO2 ABG HCO3 ABG O2 Saturation ABG Base Excess ABG Hemoglobin Oxyhemoglobin Sodium Potassium 5.9 H Chloride 108.5 H Carbon Dioxide BUN 54 H Creatinine 1.8 H Glucose 198 H POC Glucose 182 H Hemoglobin A1c Lactic Acid Calcium Phosphorus Magnesium 3.00 H Ferritin AST ALT Alkaline Phosphatase Lactate Dehydrogenase Troponin T C-Reactive Protein Total Protein Albumin LDL Cholesterol Direct Urine Creatinine Urine Total Protein Salicylates Acetaminophen Crossmatch 11/04/21 11/04/21 11/04/21 12:13 13:34 14:05 WBC RBC Hgb Hct MCH RDW Plt Count Lymph % (Auto) [place] % (Auto) Lymph # (Auto) [place] # (Auto) Seg Neutrophils % Seg Neuts % (Manual) Lymphocytes % (Manual) Nucleated RBC % Seg Neutrophils # Seg Neutrophils # Man Monocytes # (Manual) PT INR APTT D-Dimer Heparin Anti-Xa Level ABG pH 7.223 L ABG pO2 71.3 L ABG HCO3 ABG O2 Saturation 92.8 L ABG Base Excess ABG Hemoglobin 8.2 L Oxyhemoglobin 91.0 L Sodium Potassium Chloride Carbon Dioxide BUN Creatinine Glucose POC Glucose 184 H Hemoglobin A1c Lactic Acid Calcium Phosphorus Magnesium Ferritin AST ALT Alkaline Phosphatase Lactate Dehydrogenase Troponin T C-Reactive Protein Total Protein Albumin LDL Cholesterol Direct Urine Creatinine 184.6 H Urine Total Protein Salicylates Acetaminophen Crossmatch 11/04/21 11/04/21 11/05/21 18:02 Unknown 00:07 WBC RBC Hgb Hct MCH RDW Plt Count Lymph % (Auto) [place] % (Auto) Lymph # (Auto) [place] # (Auto) Seg Neutrophils % Seg Neuts % (Manual) Lymphocytes % (Manual) Nucleated RBC % Seg Neutrophils # Seg Neutrophils # Man Monocytes # (Manual) PT INR APTT D-Dimer Heparin Anti-Xa Level ABG pH ABG pO2 ABG HCO3 ABG O2 Saturation ABG Base Excess ABG Hemoglobin Oxyhemoglobin Sodium Potassium Chloride Carbon Dioxide BUN Creatinine Glucose POC Glucose 262 H 259 H Hemoglobin A1c Lactic Acid Calcium Phosphorus Magnesium Ferritin AST ALT Alkaline Phosphatase Lactate Dehydrogenase Troponin T C-Reactive Protein Total Protein Albumin LDL Cholesterol Direct Urine Creatinine 190.9 H Urine Total Protein 172 H Salicylates Acetaminophen Crossmatch 11/05/21 11/05/21 11/05/21 04:20 04:20 05:30 WBC 17.9 H RBC 3.64 L Hgb 9.7 L Hct MCH 27 L RDW 16.4 H Plt Count Lymph % (Auto) [place] % (Auto) Lymph # (Auto) [place] # (Auto) Seg Neutrophils % Seg Neuts % (Manual) Lymphocytes % (Manual) Nucleated RBC % Seg Neutrophils # Seg Neutrophils # Man Monocytes # (Manual) PT INR APTT D-Dimer Heparin Anti-Xa Level ABG pH ABG pO2 ABG HCO3 ABG O2 Saturation ABG Base Excess ABG Hemoglobin Oxyhemoglobin Sodium Potassium 5.6 H Chloride 108.4 H Carbon Dioxide BUN 71 H Creatinine 1.9 H Glucose 270 H POC Glucose 283 H Hemoglobin A1c Lactic Acid Calcium Phosphorus Magnesium Ferritin AST ALT Alkaline Phosphatase Lactate Dehydrogenase Troponin T C-Reactive Protein Total Protein Albumin LDL Cholesterol Direct Urine Creatinine Urine Total Protein Salicylates Acetaminophen Crossmatch 11/05/21 11/05/21 11/05/21 10:05 12:10 15:29 WBC RBC Hgb Hct MCH RDW Plt Count Lymph % (Auto) [place] % (Auto) Lymph # (Auto) [place] # (Auto) Seg Neutrophils % Seg Neuts % (Manual) Lymphocytes % (Manual) Nucleated RBC % Seg Neutrophils # Seg Neutrophils # Man Monocytes # (Manual) PT INR APTT D-Dimer Heparin Anti-Xa Level ABG pH 7.248 L ABG pO2 73.7 L ABG HCO3 26.2 H ABG O2 Saturation 93.1 L ABG Base Excess ABG Hemoglobin 8.9 L Oxyhemoglobin 91.4 L Sodium Potassium Chloride Carbon Dioxide BUN Creatinine Glucose POC Glucose 225 H 199 H Hemoglobin A1c Lactic Acid Calcium Phosphorus Magnesium Ferritin AST ALT Alkaline Phosphatase Lactate Dehydrogenase Troponin T C-Reactive Protein Total Protein Albumin LDL Cholesterol Direct Urine Creatinine Urine Total Protein Salicylates Acetaminophen Crossmatch 11/05/21 11/05/21 11/05/21 15:51 17:32 17:40 WBC RBC Hgb Hct MCH RDW Plt Count Lymph % (Auto) [place] % (Auto) Lymph # (Auto) [place] # (Auto) Seg Neutrophils % Seg Neuts % (Manual) Lymphocytes % (Manual) Nucleated RBC % Seg Neutrophils # Seg Neutrophils # Man Monocytes # (Manual) PT INR APTT D-Dimer Heparin Anti-Xa Level ABG pH ABG pO2 ABG HCO3 ABG O2 Saturation ABG Base Excess ABG Hemoglobin Oxyhemoglobin Sodium Potassium 5.2 H Chloride 107.8 H Carbon Dioxide BUN 79 H Creatinine 1.9 H Glucose 204 H POC Glucose 278 H 197 H Hemoglobin A1c Lactic Acid Calcium Phosphorus Magnesium Ferritin AST ALT Alkaline Phosphatase Lactate Dehydrogenase Troponin T C-Reactive Protein Total Protein Albumin LDL Cholesterol Direct Urine Creatinine Urine Total Protein Salicylates Acetaminophen Crossmatch 11/05/21 11/05/21 11/05/21 21:25 22:22 23:43 WBC RBC Hgb Hct MCH RDW Plt Count Lymph % (Auto) [place] % (Auto) Lymph # (Auto) [place] # (Auto) Seg Neutrophils % Seg Neuts % (Manual) Lymphocytes % (Manual) Nucleated RBC % Seg Neutrophils # Seg Neutrophils # Man Monocytes # (Manual) PT INR APTT D-Dimer Heparin Anti-Xa Level ABG pH ABG pO2 ABG HCO3 ABG O2 Saturation ABG Base Excess ABG Hemoglobin Oxyhemoglobin Sodium Potassium 5.3 H Chloride 109.2 H Carbon Dioxide BUN 81 H Creatinine 2.0 H Glucose 195 H POC Glucose 180 H 203 H Hemoglobin A1c Lactic Acid Calcium Phosphorus Magnesium Ferritin AST ALT Alkaline Phosphatase Lactate Dehydrogenase Troponin T C-Reactive Protein Total Protein Albumin LDL Cholesterol Direct Urine Creatinine Urine Total Protein Salicylates Acetaminophen Crossmatch 11/05/21 11/06/21 11/06/21 Unknown 02:35 05:09 WBC RBC Hgb Hct MCH RDW Plt Count Lymph % (Auto) [place] % (Auto) Lymph # (Auto) [place] # (Auto) Seg Neutrophils % Seg Neuts % (Manual) Lymphocytes % (Manual) Nucleated RBC % Seg Neutrophils # Seg Neutrophils # Man Monocytes # (Manual) PT INR APTT D-Dimer Heparin Anti-Xa Level ABG pH ABG pO2 ABG HCO3 ABG O2 Saturation ABG Base Excess ABG Hemoglobin Oxyhemoglobin Sodium 146 H Potassium 6.0 H Chloride 108.1 H 107.1 H Carbon Dioxide 21 L BUN 80 H 84 H Creatinine 2.0 H 2.0 H Glucose 238 H 235 H POC Glucose 215 H Hemoglobin A1c Lactic Acid Calcium Phosphorus Magnesium 2.80 H Ferritin AST ALT 77 H Alkaline Phosphatase Lactate Dehydrogenase Troponin T C-Reactive Protein Total Protein Albumin 3.0 L LDL Cholesterol Direct Urine Creatinine Urine Total Protein Salicylates Acetaminophen Crossmatch 11/06/21 11/06/21 11/06/21 05:40 08:07 08:07 WBC RBC Hgb Hct MCH RDW Plt Count Lymph % (Auto) [place] % (Auto) Lymph # (Auto) [place] # (Auto) Seg Neutrophils % Seg Neuts % (Manual) Lymphocytes % (Manual) Nucleated RBC % Seg Neutrophils # Seg Neutrophils # Man Monocytes # (Manual) PT INR APTT D-Dimer Heparin Anti-Xa Level 1.24 H ABG pH 7.311 L ABG pO2 72.8 L ABG HCO3 29.7 H ABG O2 Saturation 94.1 L ABG Base Excess ABG Hemoglobin 11.4 L Oxyhemoglobin 92.3 L Sodium Potassium 5.2 H Chloride Carbon Dioxide BUN 85 H Creatinine 2.3 H Glucose 236 H POC Glucose Hemoglobin A1c Lactic Acid Calcium Phosphorus Magnesium Ferritin AST ALT Alkaline Phosphatase Lactate Dehydrogenase Troponin T C-Reactive Protein Total Protein Albumin LDL Cholesterol Direct Urine Creatinine Urine Total Protein Salicylates Acetaminophen Crossmatch 11/06/21 11/06/21 11/06/21 12:14 12:57 14:28 WBC RBC Hgb Hct MCH RDW Plt Count Lymph % (Auto) [place] % (Auto) Lymph # (Auto) [place] # (Auto) Seg Neutrophils % Seg Neuts % (Manual) Lymphocytes % (Manual) Nucleated RBC % Seg Neutrophils # Seg Neutrophils # Man Monocytes # (Manual) PT INR APTT D-Dimer Heparin Anti-Xa Level ABG pH 7.282 L ABG pO2 72.6 L ABG HCO3 30.8 H ABG O2 Saturation 93.7 L ABG Base Excess 3.2 H ABG Hemoglobin 8.6 L Oxyhemoglobin 91.8 L Sodium Potassium Chloride Carbon Dioxide BUN 91 H Creatinine 2.6 H Glucose 259 H POC Glucose 225 H Hemoglobin A1c Lactic Acid Calcium Phosphorus Magnesium Ferritin AST ALT Alkaline Phosphatase Lactate Dehydrogenase Troponin T C-Reactive Protein Total Protein Albumin LDL Cholesterol Direct Urine Creatinine Urine Total Protein Salicylates Acetaminophen Crossmatch 11/06/21 11/06/21 11/06/21 17:28 19:20 21:30 WBC RBC Hgb Hct MCH RDW Plt Count Lymph % (Auto) [place] % (Auto) Lymph # (Auto) [place] # (Auto) Seg Neutrophils % Seg Neuts % (Manual) Lymphocytes % (Manual) Nucleated RBC % Seg Neutrophils # Seg Neutrophils # Man Monocytes # (Manual) PT INR APTT D-Dimer Heparin Anti-Xa Level 0.73 H ABG pH ABG pO2 ABG HCO3 ABG O2 Saturation ABG Base Excess ABG Hemoglobin Oxyhemoglobin Sodium Potassium Chloride Carbon Dioxide BUN 95 H Creatinine 2.9 H Glucose 233 H POC Glucose 206 H Hemoglobin A1c Lactic Acid Calcium Phosphorus Magnesium Ferritin AST ALT Alkaline Phosphatase Lactate Dehydrogenase Troponin T C-Reactive Protein Total Protein Albumin LDL Cholesterol Direct Urine Creatinine Urine Total Protein Salicylates Acetaminophen Crossmatch 11/06/21 11/07/21 11/07/21 22:56 05:06 06:30 WBC RBC Hgb Hct MCH RDW Plt Count Lymph % (Auto) [place] % (Auto) Lymph # (Auto) [place] # (Auto) Seg Neutrophils % Seg Neuts % (Manual) Lymphocytes % (Manual) Nucleated RBC % Seg Neutrophils # Seg Neutrophils # Man Monocytes # (Manual) PT INR APTT D-Dimer Heparin Anti-Xa Level ABG pH ABG pO2 ABG HCO3 ABG O2 Saturation ABG Base Excess ABG Hemoglobin Oxyhemoglobin Sodium 146 H Potassium Chloride Carbon Dioxide BUN 98 H Creatinine 2.8 H Glucose 202 H POC Glucose 215 H 172 H Hemoglobin A1c Lactic Acid Calcium Phosphorus 4.90 H D Magnesium 2.90 H Ferritin AST ALT Alkaline Phosphatase Lactate Dehydrogenase Troponin T C-Reactive Protein Total Protein Albumin LDL Cholesterol Direct Urine Creatinine Urine Total Protein Salicylates Acetaminophen Crossmatch 11/07/21 11/07/21 11/07/21 06:30 11:26 12:15 WBC 16.0 H RBC 3.06 L Hgb 8.2 L Hct 26.1 L MCH 27 L RDW 16.2 H Plt Count Lymph % (Auto) [place] % (Auto) Lymph # (Auto) [place] # (Auto) Seg Neutrophils % Seg Neuts % (Manual) 77.0 H Lymphocytes % (Manual) 11.0 L Nucleated RBC % 2.0 H Seg Neutrophils # Seg Neutrophils # Man 12.3 H Monocytes # (Manual) PT INR APTT D-Dimer Heparin Anti-Xa Level ABG pH 7.298 L ABG pO2 73.0 L ABG HCO3 33.3 H ABG O2 Saturation 94.4 L ABG Base Excess 5.8 H ABG Hemoglobin 8.2 L Oxyhemoglobin 92.7 L Sodium Potassium Chloride Carbon Dioxide BUN Creatinine Glucose POC Glucose 179 H Hemoglobin A1c Lactic Acid Calcium Phosphorus Magnesium Ferritin AST ALT Alkaline Phosphatase Lactate Dehydrogenase Troponin T C-Reactive Protein Total Protein Albumin LDL Cholesterol Direct Urine Creatinine Urine Total Protein Salicylates Acetaminophen Crossmatch 11/07/21 11/07/21 11/07/21 17:57 22:16 23:49 WBC RBC Hgb Hct MCH RDW Plt Count Lymph % (Auto) [place] % (Auto) Lymph # (Auto) [place] # (Auto) Seg Neutrophils % Seg Neuts % (Manual) Lymphocytes % (Manual) Nucleated RBC % Seg Neutrophils # Seg Neutrophils # Man Monocytes # (Manual) PT INR APTT D-Dimer Heparin Anti-Xa Level ABG pH ABG pO2 ABG HCO3 ABG O2 Saturation ABG Base Excess ABG Hemoglobin Oxyhemoglobin Sodium Potassium Chloride Carbon Dioxide BUN Creatinine Glucose POC Glucose 166 H 223 H 190 H Hemoglobin A1c Lactic Acid Calcium Phosphorus Magnesium Ferritin AST ALT Alkaline Phosphatase Lactate Dehydrogenase Troponin T C-Reactive Protein Total Protein Albumin LDL Cholesterol Direct Urine Creatinine Urine Total Protein Salicylates Acetaminophen Crossmatch 11/08/21 11/08/21 11/08/21 04:20 04:20 06:16 WBC 22.1 H RBC 3.01 L Hgb 8.1 L Hct 25.6 L MCH 27 L RDW 15.4 H Plt Count Lymph % (Auto) [place] % (Auto) Lymph # (Auto) [place] # (Auto) Seg Neutrophils % Seg Neuts % (Manual) Lymphocytes % (Manual) Nucleated RBC % Seg Neutrophils # Seg Neutrophils # Man Monocytes # (Manual) PT INR APTT D-Dimer Heparin Anti-Xa Level ABG pH ABG pO2 ABG HCO3 ABG O2 Saturation ABG Base Excess ABG Hemoglobin Oxyhemoglobin Sodium 151 H Potassium 3.1 L D Chloride 107.3 H Carbon Dioxide 31 H BUN 82 H Creatinine 1.8 H Glucose 232 H POC Glucose 198 H Hemoglobin A1c Lactic Acid Calcium 8.1 L Phosphorus Magnesium Ferritin AST ALT Alkaline Phosphatase Lactate Dehydrogenase Troponin T C-Reactive Protein Total Protein Albumin LDL Cholesterol Direct Urine Creatinine Urine Total Protein Salicylates Acetaminophen Crossmatch 11/08/21 11/08/21 11/08/21 11:38 12:00 18:29 WBC RBC Hgb Hct MCH RDW Plt Count Lymph % (Auto) [place] % (Auto) Lymph # (Auto) [place] # (Auto) Seg Neutrophils % Seg Neuts % (Manual) Lymphocytes % (Manual) Nucleated RBC % Seg Neutrophils # Seg Neutrophils # Man Monocytes # (Manual) PT INR APTT D-Dimer Heparin Anti-Xa Level ABG pH ABG pO2 ABG HCO3 ABG O2 Saturation ABG Base Excess ABG Hemoglobin Oxyhemoglobin Sodium Potassium 3.0 L Chloride Carbon Dioxide BUN Creatinine Glucose POC Glucose 190 H 211 H Hemoglobin A1c Lactic Acid Calcium Phosphorus Magnesium Ferritin AST ALT Alkaline Phosphatase Lactate Dehydrogenase Troponin T C-Reactive Protein Total Protein Albumin LDL Cholesterol Direct Urine Creatinine Urine Total Protein Salicylates Acetaminophen Crossmatch 11/08/21 11/08/21 11/09/21 21:34 21:40 00:36 WBC RBC Hgb Hct MCH RDW Plt Count Lymph % (Auto) [place] % (Auto) Lymph # (Auto) [place] # (Auto) Seg Neutrophils % Seg Neuts % (Manual) Lymphocytes % (Manual) Nucleated RBC % Seg Neutrophils # Seg Neutrophils # Man Monocytes # (Manual) PT INR APTT D-Dimer Heparin Anti-Xa Level ABG pH ABG pO2 ABG HCO3 ABG O2 Saturation ABG Base Excess ABG Hemoglobin Oxyhemoglobin Sodium 148 H Potassium 2.8 L* Chloride Carbon Dioxide 31 H BUN 68 H Creatinine 1.5 H Glucose 191 H POC Glucose 194 H 140 H Hemoglobin A1c Lactic Acid Calcium 8.2 L Phosphorus Magnesium Ferritin AST ALT Alkaline Phosphatase Lactate Dehydrogenase Troponin T C-Reactive Protein Total Protein Albumin LDL Cholesterol Direct Urine Creatinine Urine Total Protein Salicylates Acetaminophen Crossmatch 11/09/21 11/09/21 11/09/21 04:51 04:51 04:51 WBC 27.6 H RBC 3.18 L Hgb 8.4 L Hct 26.6 L MCH 27 L RDW 15.3 H Plt Count Lymph % (Auto) [place] % (Auto) Lymph # (Auto) [place] # (Auto) Seg Neutrophils % Seg Neuts % (Manual) Lymphocytes % (Manual) Nucleated RBC % Seg Neutrophils # Seg Neutrophils # Man Monocytes # (Manual) PT INR APTT D-Dimer Heparin Anti-Xa Level 0.18 L ABG pH ABG pO2 ABG HCO3 ABG O2 Saturation ABG Base Excess ABG Hemoglobin Oxyhemoglobin Sodium 148 H Potassium 2.7 L* Chloride Carbon Dioxide BUN 59 H Creatinine 1.4 H Glucose 143 H POC Glucose Hemoglobin A1c Lactic Acid Calcium 8.3 L Phosphorus Magnesium Ferritin AST ALT Alkaline Phosphatase Lactate Dehydrogenase Troponin T C-Reactive Protein Total Protein Albumin LDL Cholesterol Direct Urine Creatinine Urine Total Protein Salicylates Acetaminophen Crossmatch 11/09/21 11/09/21 11/09/21 05:52 08:45 11:00 WBC RBC Hgb Hct MCH RDW Plt Count Lymph % (Auto) [place] % (Auto) Lymph # (Auto) [place] # (Auto) Seg Neutrophils % Seg Neuts % (Manual) Lymphocytes % (Manual) Nucleated RBC % Seg Neutrophils # Seg Neutrophils # Man Monocytes # (Manual) PT INR APTT D-Dimer Heparin Anti-Xa Level ABG pH ABG pO2 73.2 L ABG HCO3 33.8 H ABG O2 Saturation ABG Base Excess 8.7 H ABG Hemoglobin 8.5 L Oxyhemoglobin 94.1 L Sodium Potassium Chloride Carbon Dioxide BUN Creatinine Glucose POC Glucose 166 H 136 H Hemoglobin A1c Lactic Acid Calcium Phosphorus Magnesium Ferritin AST ALT Alkaline Phosphatase Lactate Dehydrogenase Troponin T C-Reactive Protein Total Protein Albumin LDL Cholesterol Direct Urine Creatinine Urine Total Protein Salicylates Acetaminophen Crossmatch 11/09/21 11/09/21 11/09/21 15:48 16:10 20:31 WBC RBC Hgb Hct MCH RDW Plt Count Lymph % (Auto) [place] % (Auto) Lymph # (Auto) [place] # (Auto) Seg Neutrophils % Seg Neuts % (Manual) Lymphocytes % (Manual) Nucleated RBC % Seg Neutrophils # Seg Neutrophils # Man Monocytes # (Manual) PT INR APTT D-Dimer Heparin Anti-Xa Level ABG pH ABG pO2 ABG HCO3 ABG O2 Saturation ABG Base Excess ABG Hemoglobin Oxyhemoglobin Sodium Potassium 2.8 L* Chloride Carbon Dioxide 31 H BUN 53 H Creatinine 1.3 H Glucose 208 H POC Glucose 203 H 166 H Hemoglobin A1c Lactic Acid Calcium 7.9 L Phosphorus Magnesium Ferritin AST ALT Alkaline Phosphatase Lactate Dehydrogenase Troponin T C-Reactive Protein Total Protein Albumin LDL Cholesterol Direct Urine Creatinine Urine Total Protein Salicylates Acetaminophen Crossmatch 11/09/21 11/09/21 11/09/21 21:30 23:16 Unknown WBC RBC Hgb Hct MCH RDW Plt Count Lymph % (Auto) [place] % (Auto) Lymph # (Auto) [place] # (Auto) Seg Neutrophils % Seg Neuts % (Manual) Lymphocytes % (Manual) Nucleated RBC % Seg Neutrophils # Seg Neutrophils # Man Monocytes # (Manual) PT INR APTT D-Dimer Heparin Anti-Xa Level 0.24 L ABG pH ABG pO2 ABG HCO3 ABG O2 Saturation ABG Base Excess ABG Hemoglobin Oxyhemoglobin Sodium Potassium Chloride Carbon Dioxide BUN 52 H Creatinine 1.4 H Glucose 185 H POC Glucose 172 H Hemoglobin A1c Lactic Acid Calcium 7.8 L Phosphorus Magnesium Ferritin AST ALT Alkaline Phosphatase Lactate Dehydrogenase Troponin T C-Reactive Protein Total Protein Albumin LDL Cholesterol Direct Urine Creatinine Urine Total Protein Salicylates Acetaminophen Crossmatch 11/10/21 11/10/21 11/10/21 02:00 04:17 04:17 WBC 24.5 H RBC 2.75 L Hgb 7.5 L Hct 22.9 L MCH 27 L RDW Plt Count Lymph % (Auto) [place] % (Auto) Lymph # (Auto) [place] # (Auto) Seg Neutrophils % Seg Neuts % (Manual) Lymphocytes % (Manual) Nucleated RBC % Seg Neutrophils # Seg Neutrophils # Man Monocytes # (Manual) PT INR APTT D-Dimer Heparin Anti-Xa Level 0.26 L ABG pH ABG pO2 ABG HCO3 ABG O2 Saturation ABG Base Excess ABG Hemoglobin Oxyhemoglobin Sodium Potassium 2.9 L* Chloride Carbon Dioxide 35 H BUN 48 H Creatinine Glucose 212 H POC Glucose Hemoglobin A1c Lactic Acid Calcium 8.1 L Phosphorus Magnesium Ferritin AST ALT Alkaline Phosphatase Lactate Dehydrogenase Troponin T C-Reactive Protein Total Protein Albumin LDL Cholesterol Direct Urine Creatinine Urine Total Protein Salicylates Acetaminophen Crossmatch 11/10/21 11/10/21 11/10/21 05:01 08:39 11:03 WBC RBC Hgb Hct MCH RDW Plt Count Lymph % (Auto) [place] % (Auto) Lymph # (Auto) [place] # (Auto) Seg Neutrophils % Seg Neuts % (Manual) Lymphocytes % (Manual) Nucleated RBC % Seg Neutrophils # Seg Neutrophils # Man Monocytes # (Manual) PT INR APTT D-Dimer Heparin Anti-Xa Level 0.12 L ABG pH ABG pO2 ABG HCO3 ABG O2 Saturation ABG Base Excess ABG Hemoglobin Oxyhemoglobin Sodium Potassium Chloride Carbon Dioxide BUN Creatinine Glucose POC Glucose 203 H 152 H Hemoglobin A1c Lactic Acid Calcium Phosphorus Magnesium Ferritin AST ALT Alkaline Phosphatase Lactate Dehydrogenase Troponin T C-Reactive Protein Total Protein Albumin LDL Cholesterol Direct Urine Creatinine Urine Total Protein Salicylates Acetaminophen Crossmatch 11/10/21 11/10/21 11/10/21 12:45 15:43 21:05 WBC RBC Hgb Hct MCH RDW Plt Count Lymph % (Auto) [place] % (Auto) Lymph # (Auto) [place] # (Auto) Seg Neutrophils % Seg Neuts % (Manual) Lymphocytes % (Manual) Nucleated RBC % Seg Neutrophils # Seg Neutrophils # Man Monocytes # (Manual) PT INR APTT D-Dimer Heparin Anti-Xa Level ABG pH ABG pO2 ABG HCO3 ABG O2 Saturation ABG Base Excess ABG Hemoglobin Oxyhemoglobin Sodium 146 H Potassium 3.3 L Chloride Carbon Dioxide 31 H BUN 43 H Creatinine Glucose 155 H POC Glucose 139 H 139 H Hemoglobin A1c Lactic Acid Calcium 8.3 L Phosphorus Magnesium Ferritin AST ALT Alkaline Phosphatase Lactate Dehydrogenase Troponin T C-Reactive Protein Total Protein Albumin LDL Cholesterol Direct Urine Creatinine Urine Total Protein Salicylates Acetaminophen Crossmatch 11/10/21 11/11/21 11/11/21 23:25 03:49 03:49 WBC 22.1 H RBC 2.69 L Hgb 7.2 L Hct 22.7 L MCH 27 L RDW Plt Count Lymph % (Auto) [place] % (Auto) Lymph # (Auto) [place] # (Auto) Seg Neutrophils % Seg Neuts % (Manual) Lymphocytes % (Manual) Nucleated RBC % Seg Neutrophils # Seg Neutrophils # Man Monocytes # (Manual) PT INR APTT D-Dimer Heparin Anti-Xa Level ABG pH ABG pO2 ABG HCO3 ABG O2 Saturation ABG Base Excess ABG Hemoglobin Oxyhemoglobin Sodium Potassium Chloride Carbon Dioxide 32 H BUN 44 H Creatinine 1.3 H Glucose 173 H POC Glucose 146 H Hemoglobin A1c Lactic Acid Calcium Phosphorus Magnesium Ferritin AST ALT Alkaline Phosphatase Lactate Dehydrogenase Troponin T C-Reactive Protein Total Protein Albumin LDL Cholesterol Direct Urine Creatinine Urine Total Protein Salicylates Acetaminophen Crossmatch 11/11/21 11/11/21 11/11/21 05:03 10:50 11:32 WBC RBC Hgb Hct MCH RDW Plt Count Lymph % (Auto) [place] % (Auto) Lymph # (Auto) [place] # (Auto) Seg Neutrophils % Seg Neuts % (Manual) Lymphocytes % (Manual) Nucleated RBC % Seg Neutrophils # Seg Neutrophils # Man Monocytes # (Manual) PT INR APTT D-Dimer Heparin Anti-Xa Level ABG pH ABG pO2 ABG HCO3 ABG O2 Saturation ABG Base Excess ABG Hemoglobin Oxyhemoglobin Sodium Potassium Chloride Carbon Dioxide BUN Creatinine Glucose POC Glucose 152 H 129 H 133 H Hemoglobin A1c Lactic Acid Calcium Phosphorus Magnesium Ferritin AST ALT Alkaline Phosphatase Lactate Dehydrogenase Troponin T C-Reactive Protein Total Protein Albumin LDL Cholesterol Direct Urine Creatinine Urine Total Protein Salicylates Acetaminophen Crossmatch 11/11/21 11/11/21 11/11/21 13:53 16:31 17:13 WBC RBC Hgb Hct MCH RDW Plt Count Lymph % (Auto) [place] % (Auto) Lymph # (Auto) [place] # (Auto) Seg Neutrophils % Seg Neuts % (Manual) Lymphocytes % (Manual) Nucleated RBC % Seg Neutrophils # Seg Neutrophils # Man Monocytes # (Manual) PT INR APTT D-Dimer Heparin Anti-Xa Level ABG pH 7.475 H ABG pO2 64.1 L ABG HCO3 32.4 H ABG O2 Saturation ABG Base Excess 8.0 H ABG Hemoglobin 7.6 L Oxyhemoglobin 94.0 L Sodium Potassium Chloride Carbon Dioxide BUN Creatinine Glucose POC Glucose 116 H 125 H Hemoglobin A1c Lactic Acid Calcium Phosphorus Magnesium Ferritin AST ALT Alkaline Phosphatase Lactate Dehydrogenase Troponin T C-Reactive Protein Total Protein Albumin LDL Cholesterol Direct Urine Creatinine Urine Total Protein Salicylates Acetaminophen Crossmatch 11/11/21 11/11/21 11/12/21 20:40 23:35 03:30 WBC 17.7 H RBC 2.37 L Hgb 6.3 L Hct 20.0 L MCH 27 L RDW 15.5 H Plt Count Lymph % (Auto) [place] % (Auto) Lymph # (Auto) [place] # (Auto) Seg Neutrophils % Seg Neuts % (Manual) Lymphocytes % (Manual) Nucleated RBC % Seg Neutrophils # Seg Neutrophils # Man Monocytes # (Manual) PT INR APTT D-Dimer Heparin Anti-Xa Level 0.26 L ABG pH ABG pO2 ABG HCO3 ABG O2 Saturation ABG Base Excess ABG Hemoglobin Oxyhemoglobin Sodium Potassium Chloride Carbon Dioxide BUN Creatinine Glucose POC Glucose 118 H Hemoglobin A1c Lactic Acid Calcium Phosphorus Magnesium Ferritin AST ALT Alkaline Phosphatase Lactate Dehydrogenase Troponin T C-Reactive Protein Total Protein Albumin LDL Cholesterol Direct Urine Creatinine Urine Total Protein Salicylates Acetaminophen Crossmatch 11/12/21 11/12/21 11/12/21 03:30 04:15 11:53 WBC RBC Hgb Hct MCH RDW Plt Count Lymph % (Auto) [place] % (Auto) Lymph # (Auto) [place] # (Auto) Seg Neutrophils % Seg Neuts % (Manual) Lymphocytes % (Manual) Nucleated RBC % Seg Neutrophils # Seg Neutrophils # Man Monocytes # (Manual) PT INR APTT D-Dimer Heparin Anti-Xa Level ABG pH ABG pO2 ABG HCO3 ABG O2 Saturation ABG Base Excess ABG Hemoglobin Oxyhemoglobin Sodium Potassium Chloride Carbon Dioxide 33 H BUN 38 H Creatinine 1.3 H Glucose 102 H POC Glucose 62 L Hemoglobin A1c Lactic Acid Calcium 8.2 L Phosphorus Magnesium Ferritin AST ALT Alkaline Phosphatase Lactate Dehydrogenase Troponin T C-Reactive Protein Total Protein Albumin LDL Cholesterol Direct Urine Creatinine Urine Total Protein Salicylates Acetaminophen Crossmatch See Detail 11/12/21 11/12/21 11/12/21 17:20 19:14 23:11 WBC RBC Hgb 6.2 L Hct 19.5 L* MCH RDW Plt Count Lymph % (Auto) [place] % (Auto) Lymph # (Auto) [place] # (Auto) Seg Neutrophils % Seg Neuts % (Manual) Lymphocytes % (Manual) Nucleated RBC % Seg Neutrophils # Seg Neutrophils # Man Monocytes # (Manual) PT INR APTT D-Dimer Heparin Anti-Xa Level ABG pH ABG pO2 ABG HCO3 ABG O2 Saturation ABG Base Excess ABG Hemoglobin Oxyhemoglobin Sodium Potassium Chloride Carbon Dioxide BUN Creatinine Glucose POC Glucose 115 H 131 H Hemoglobin A1c Lactic Acid Calcium Phosphorus Magnesium Ferritin AST ALT Alkaline Phosphatase Lactate Dehydrogenase Troponin T C-Reactive Protein Total Protein Albumin LDL Cholesterol Direct Urine Creatinine Urine Total Protein Salicylates Acetaminophen Crossmatch 11/13/21 11/13/21 11/13/21 00:13 04:17 04:17 WBC 23.8 H RBC 2.84 L Hgb 7.4 L 7.8 L Hct 23.3 L 24.9 L MCH 27 L RDW 15.4 H Plt Count Lymph % (Auto) [place] % (Auto) Lymph # (Auto) [place] # (Auto) Seg Neutrophils % Seg Neuts % (Manual) Lymphocytes % (Manual) Nucleated RBC % Seg Neutrophils # Seg Neutrophils # Man Monocytes # (Manual) PT INR APTT D-Dimer Heparin Anti-Xa Level ABG pH ABG pO2 ABG HCO3 ABG O2 Saturation ABG Base Excess ABG Hemoglobin Oxyhemoglobin Sodium 146 H Potassium Chloride Carbon Dioxide BUN 44 H Creatinine 1.6 H Glucose 144 H POC Glucose Hemoglobin A1c Lactic Acid Calcium 7.9 L Phosphorus 5.10 H D Magnesium Ferritin AST ALT Alkaline Phosphatase Lactate Dehydrogenase Troponin T C-Reactive Protein Total Protein Albumin LDL Cholesterol Direct Urine Creatinine Urine Total Protein Salicylates Acetaminophen Crossmatch 11/13/21 11/13/21 11/13/21 05:52 10:54 15:57 WBC RBC Hgb Hct MCH RDW Plt Count Lymph % (Auto) [place] % (Auto) Lymph # (Auto) [place] # (Auto) Seg Neutrophils % Seg Neuts % (Manual) Lymphocytes % (Manual) Nucleated RBC % Seg Neutrophils # Seg Neutrophils # Man Monocytes # (Manual) PT INR APTT D-Dimer Heparin Anti-Xa Level ABG pH ABG pO2 ABG HCO3 ABG O2 Saturation ABG Base Excess ABG Hemoglobin Oxyhemoglobin Sodium Potassium Chloride Carbon Dioxide BUN Creatinine Glucose POC Glucose 123 H 147 H 207 H Hemoglobin A1c Lactic Acid Calcium Phosphorus Magnesium Ferritin AST ALT Alkaline Phosphatase Lactate Dehydrogenase Troponin T C-Reactive Protein Total Protein Albumin LDL Cholesterol Direct Urine Creatinine Urine Total Protein Salicylates Acetaminophen Crossmatch 11/13/21 11/13/21 11/14/21 16:01 23:18 04:55 WBC 23.9 H RBC 2.86 L Hgb 6.5 L 8.3 L Hct 20.3 L 24.5 L MCH RDW Plt Count Lymph % (Auto) [place] % (Auto) Lymph # (Auto) [place] # (Auto) Seg Neutrophils % Seg Neuts % (Manual) Lymphocytes % (Manual) Nucleated RBC % Seg Neutrophils # Seg Neutrophils # Man Monocytes # (Manual) PT INR APTT D-Dimer Heparin Anti-Xa Level ABG pH ABG pO2 ABG HCO3 ABG O2 Saturation ABG Base Excess ABG Hemoglobin Oxyhemoglobin Sodium Potassium Chloride Carbon Dioxide BUN Creatinine Glucose POC Glucose 209 H Hemoglobin A1c Lactic Acid Calcium Phosphorus Magnesium Ferritin AST ALT Alkaline Phosphatase Lactate Dehydrogenase Troponin T C-Reactive Protein Total Protein Albumin LDL Cholesterol Direct Urine Creatinine Urine Total Protein Salicylates Acetaminophen Crossmatch 11/14/21 11/14/21 11/14/21 04:55 05:09 11:35 WBC RBC Hgb Hct MCH RDW Plt Count Lymph % (Auto) [place] % (Auto) Lymph # (Auto) [place] # (Auto) Seg Neutrophils % Seg Neuts % (Manual) Lymphocytes % (Manual) Nucleated RBC % Seg Neutrophils # Seg Neutrophils # Man Monocytes # (Manual) PT INR APTT D-Dimer Heparin Anti-Xa Level ABG pH ABG pO2 ABG HCO3 ABG O2 Saturation ABG Base Excess ABG Hemoglobin Oxyhemoglobin Sodium 148 H Potassium Chloride 109.0 H Carbon Dioxide BUN 42 H Creatinine 1.6 H Glucose 184 H POC Glucose 169 H 154 H Hemoglobin A1c Lactic Acid Calcium 8.0 L Phosphorus Magnesium Ferritin AST ALT Alkaline Phosphatase Lactate Dehydrogenase Troponin T C-Reactive Protein Total Protein Albumin LDL Cholesterol Direct Urine Creatinine Urine Total Protein Salicylates Acetaminophen Crossmatch 11/14/21 11/14/21 11/15/21 16:57 23:11 04:36 WBC RBC Hgb Hct MCH RDW Plt Count Lymph % (Auto) [place] % (Auto) Lymph # (Auto) [place] # (Auto) Seg Neutrophils % Seg Neuts % (Manual) Lymphocytes % (Manual) Nucleated RBC % Seg Neutrophils # Seg Neutrophils # Man Monocytes # (Manual) PT INR APTT D-Dimer Heparin Anti-Xa Level ABG pH ABG pO2 ABG HCO3 ABG O2 Saturation ABG Base Excess ABG Hemoglobin Oxyhemoglobin Sodium 151 H Potassium Chloride 111.2 H Carbon Dioxide BUN 36 H Creatinine 1.3 H Glucose 136 H POC Glucose 124 H 118 H Hemoglobin A1c Lactic Acid Calcium 8.1 L Phosphorus Magnesium Ferritin AST ALT Alkaline Phosphatase Lactate Dehydrogenase Troponin T C-Reactive Protein Total Protein Albumin LDL Cholesterol Direct Urine Creatinine Urine Total Protein Salicylates Acetaminophen Crossmatch 11/15/21 11/15/21 11/16/21 11:18 21:49 00:15 WBC RBC Hgb Hct MCH RDW Plt Count Lymph % (Auto) [place] % (Auto) Lymph # (Auto) [place] # (Auto) Seg Neutrophils % Seg Neuts % (Manual) Lymphocytes % (Manual) Nucleated RBC % Seg Neutrophils # Seg Neutrophils # Man Monocytes # (Manual) PT INR APTT D-Dimer Heparin Anti-Xa Level ABG pH ABG pO2 ABG HCO3 ABG O2 Saturation ABG Base Excess ABG Hemoglobin Oxyhemoglobin Sodium Potassium Chloride Carbon Dioxide BUN Creatinine Glucose POC Glucose 154 H 154 H 146 H Hemoglobin A1c Lactic Acid Calcium Phosphorus Magnesium Ferritin AST ALT Alkaline Phosphatase Lactate Dehydrogenase Troponin T C-Reactive Protein Total Protein Albumin LDL Cholesterol Direct Urine Creatinine Urine Total Protein Salicylates Acetaminophen Crossmatch 11/16/21 11/16/21 11/16/21 05:11 05:11 05:37 WBC 18.2 H RBC 2.92 L Hgb 8.3 L Hct 26.1 L MCH RDW 15.8 H Plt Count Lymph % (Auto) 6.3 L [place] % (Auto) 10.2 H Lymph # (Auto) [place] # (Auto) 1.9 H Seg Neutrophils % 81.7 H Seg Neuts % (Manual) Lymphocytes % (Manual) Nucleated RBC % Seg Neutrophils # 14.9 H Seg Neutrophils # Man Monocytes # (Manual) PT INR APTT D-Dimer Heparin Anti-Xa Level ABG pH ABG pO2 ABG HCO3 ABG O2 Saturation ABG Base Excess ABG Hemoglobin Oxyhemoglobin Sodium 146 H Potassium Chloride 108.0 H Carbon Dioxide BUN 25 H Creatinine Glucose 123 H POC Glucose 109 H Hemoglobin A1c Lactic Acid Calcium 7.8 L Phosphorus Magnesium Ferritin AST ALT Alkaline Phosphatase Lactate Dehydrogenase Troponin T C-Reactive Protein Total Protein Albumin LDL Cholesterol Direct Urine Creatinine Urine Total Protein Salicylates Acetaminophen Crossmatch 11/16/21 11/16/21 11/17/21 11:22 23:55 04:33 WBC RBC Hgb Hct MCH RDW Plt Count Lymph % (Auto) [place] % (Auto) Lymph # (Auto) [place] # (Auto) Seg Neutrophils % Seg Neuts % (Manual) Lymphocytes % (Manual) Nucleated RBC % Seg Neutrophils # Seg Neutrophils # Man Monocytes # (Manual) PT INR APTT D-Dimer Heparin Anti-Xa Level ABG pH ABG pO2 ABG HCO3 ABG O2 Saturation ABG Base Excess ABG Hemoglobin Oxyhemoglobin Sodium Potassium Chloride Carbon Dioxide BUN 20 H Creatinine Glucose POC Glucose 136 H 113 H Hemoglobin A1c Lactic Acid Calcium 7.5 L Phosphorus Magnesium Ferritin AST ALT Alkaline Phosphatase Lactate Dehydrogenase Troponin T C-Reactive Protein Total Protein Albumin LDL Cholesterol Direct Urine Creatinine Urine Total Protein Salicylates Acetaminophen Crossmatch 11/17/21 11/18/21 11/18/21 23:22 04:53 04:53 WBC 13.0 H RBC 2.99 L Hgb 8.5 L Hct 26.4 L MCH RDW Plt Count Lymph % (Auto) 9.5 L [place] % (Auto) 9.8 H Lymph # (Auto) [place] # (Auto) 1.3 H Seg Neutrophils % 78.3 H Seg Neuts % (Manual) Lymphocytes % (Manual) Nucleated RBC % Seg Neutrophils # 10.2 H Seg Neutrophils # Man Monocytes # (Manual) PT INR APTT D-Dimer Heparin Anti-Xa Level ABG pH ABG pO2 ABG HCO3 ABG O2 Saturation ABG Base Excess ABG Hemoglobin Oxyhemoglobin Sodium Potassium Chloride Carbon Dioxide BUN 18 H Creatinine Glucose 106 H POC Glucose 112 H Hemoglobin A1c Lactic Acid Calcium 8.1 L Phosphorus Magnesium Ferritin AST ALT Alkaline Phosphatase Lactate Dehydrogenase Troponin T C-Reactive Protein Total Protein Albumin LDL Cholesterol Direct Urine Creatinine Urine Total Protein Salicylates Acetaminophen Crossmatch 11/18/21 11/18/21 11:35 17:42 WBC RBC Hgb Hct MCH RDW Plt Count Lymph % (Auto) [place] % (Auto) Lymph # (Auto) [place] # (Auto) Seg Neutrophils % Seg Neuts % (Manual) Lymphocytes % (Manual) Nucleated RBC % Seg Neutrophils # Seg Neutrophils # Man Monocytes # (Manual) PT INR APTT D-Dimer Heparin Anti-Xa Level ABG pH ABG pO2 ABG HCO3 ABG O2 Saturation ABG Base Excess ABG Hemoglobin Oxyhemoglobin Sodium Potassium Chloride Carbon Dioxide BUN Creatinine Glucose POC Glucose 143 H 132 H Hemoglobin A1c Lactic Acid Calcium Phosphorus Magnesium Ferritin AST ALT Alkaline Phosphatase Lactate Dehydrogenase Troponin T C-Reactive Protein Total Protein Albumin LDL Cholesterol Direct Urine Creatinine Urine Total Protein Salicylates Acetaminophen Crossmatch Chest x-ray: report reviewed, image reviewed Additional Studies: XR chest 1V ap 11/18/21 INDICATION / CLINICAL INFORMATION: interstitial edema. COMPARISON: 11/16/2021 FINDINGS: SUPPORT DEVICES: None. HEART /PULMONARY VASCULATURE: Unchanged. LUNGS / PLEURA: Low lung volumes remain. There is improvement in interstitial edema. No pneumothorax. IMPRESSION: Improving interstitial edema. Allied health notes reviewed: nursing
[2021-11-19] MEDS: INSULIN LISPRO 100 UNIT/ML SUB-Q SCH ×4 (00:30→18:33)
[2021-11-19] MEDS: MORPHINE 4 MG/1 ML INJ IV PRN (06:08)
--- NOTE | 2021-11-19 08:30 | Progress Note ---
Assessment and Plan Assessment and plan: This is a 66-year-old female with past medical history of HTN and Obesity admitted for septic shock, s/p cardiac arrest with ROSC in the field now intubated and on ventilatory support. Neuro: Acute Metabolic encephalopathy, agitation/anxiety -Avoid delirium -Reorientation as needed -Precedex gtt -Maintain sleep-wake cycle -CT head no acute focal parenchymal lesion in the brain -Neurology consulted, appreciate recommendations -EEG and MRI noted, Neuro recommend to cut down on sedation as possible Cardiac: Atrial fibrillation/atrial flutter s/p cardiac arrest, HFrEF, hypotension, h/o htn -Outside hospital cardiac arrest with ROSC -Cardiology consulted, appreciate recommendations - S/p Cardizem gtt- d/c due to low EF; now on PO Amio -s/p vasopressor support with levophed -Echocardiogram shows left ventricular systolic function severely decreased, LVEF 25 to 30%, no pericardial effusion -proBNP 5622 -BP monitoring per protocol Respiratory: Acute hypoxic respiratory failure, right pneumothorax, Angioedema (resolved), pulmonary edema -CCM consulted, appreciate recommendations -Intubated on 10/29 and extubated on 11/11 -ABG and CXR per CCM -Bipap q HS and prn -NC during day -pulm hygiene -SPO2 monitoring -s/p right chest tube -s/p steroids for angioedema - will need additional lasix doses for pulmonary edema. GI: Protein calorie malnutrion, transaminitis likely shocked liver -24 hours -2485 mL -PPI -NTR consulted for tube feedings -Trend LFTs -BM: 11/14 -failed ST eval : Acute kidney injury likely secondary to vasomotor nephropathy, hypernatremia -Nephrology consulted, appreciate recommendations -Krishna replaced 11/05 urinary retention -Strict intake and output -Renally dose medications -Avoid nephrotoxic medications -Daily weights -FWF -FeNa 0.05 indicating pre-renal -Medically treat hyperkalemia again -Trend BMP ID: Septic shock -COVID-19 PCR negative -S/p antibiotic therapy with Rocephin and azithromycin () -S/p Levophed gtt for hypotension -Follow-up culture data -Monitor WBC and temperature curve Endo: Hyperglycemia 9resolved) -Avoid hypoglycemia -Hbg A1C 6.7 -SSI and lantus q hs (titrate as needed) -Accu-Cheks q. 6 Heme: Acute DVT in the left posterior tibial vein and bilateral peroneal veins, Leukocytosis, Anemia, retroperitoneal bleed -D-dimer greater than 10,000 -CTA chest with no evidence of PE -Bilateral lower extremity ultrasound positive for DVT -Heparin gtt on hold d/t anemia -vasuclar surgery consulted, appreciate recommendations -recommended multiphasic CT angio of the abdomen and pelvis with and without contrast if H/H drops and does not recommend IVC filter at this time as the DVTs are infrapopliteal and recommends a DVT study weekly for 2 weeks -Trend CBC -SCDs to BLE while in bed -Transfuse hemoglobin less than 7 -Monitor for signs of bleeding The high probability of a clinically significant, sudden or life threatening deterioration of the [multi] system(s) required my full and direct attention, intervention and personal management. The aggregate critical care time was [60] minutes. This time is in addition to time spent performing reported procedures but includes the following: [x] Data Review and interpretation [x] Patient assessment and monitoring of vital signs [x] Documentation [x] Medication orders and management Disposition Plan: imcu Total Time Spent with Patient (Minutes): 60 History Interval history: Interval history: This is a 66-year-old female with HTN and obesity who presented to the hospital on 10/29 via EMS with s/p cardiac arrest with CPR initiated by bystanders and upon EMS arrival a David airway was placed and ACLS was initiated. Patient had ROSC after 5-7 minutes and was started on epinephrine in route for hemodynamic support. Upon arrival to the emergency department patient GCS was noted to be 3 and she was biting the endotracheal tube with dilated pupils and copious vomitus and gastric secretions in the oropharynx/mouth/neck. David airway was removed and patient was intubated in the emergency department. Patient was ad mitted to the hospitalist service s/p cardiac arrest on sepsis and pneumonia protocol with consults to [facility]. Cardiology was consulted upon arrival to ICU. Hospital Course to Date: 10/30: Intubated and sedated, on fentanyl gtt. Open eyes spontaneously but does not follow any commands. On vasopressors, titrate as tolerated for MAP above 65. Patient febrile overnight, continue empiric IV Abx, culture data and COVID PCR pending. Patient is also s/p CT placement due to spontaneous pneumothorax. 2D echo is pending and Cardiology is consulted. 10/31: Patient remains intubated and following commands. Levophed drip stopped and potassium repleted. Patient started on tube feeding. Remains in soft bilateral restraints. 11/01: RN noted ST changes on BSM and 12 lead EKG obtained which showed ST. Given Ativan 1mg for agitation as she is maxed on fentanyl drip and IV push fentanyl did not seem to help. Patient was started on CPAP this morning by RT but remained on fentanyl drip and was having periods of apnea. Plan was to retry CPAP again in the p.m. with sedation off. 11/02: Rate increased r/t hypercapnea on ABG, sedation reduced. Given kionex for hyperkalemia and was started on levophed overnight for hypotension. 11/03: Overnight patient had tachycardia and was given Cardizem and Lopressor. Lopressor was repeated in the a.m. due to tachycardia. Patient will be started on amiodarone with a bolus per cardiology. Patient started on normal saline per liter per [facility] and steroids for angioedema. Noted to have bright red blood when suctioned from oh ETT. Remains on heparin drip as H/H is stable for now. Will reevaluate. Fentanyl drip was restarted last night due to agitation. Dr. Flores updated family today 11/04: Patient was sedated on fentanyl however off sedation is able to follow commands, a.m. labs completed in the p.m. and show hyperkalemia with increased renal function studies. Nephrology, neurology consulted by [facility]. Given Kayexalate, insulin and D50 for hyperkalemia. Patient remains on amiodarone. 11/05: Patient needed to be sedated on fentanyl again to today. overnight krishna was replaced. Hyperkalemia->given kionex 60 for 5.6. Repeat K 6-> Dr. Grant informed and requested bumex, kionex, insulin, d50, calcium gluconate and sodium bicarb with repeat BMP in 2 hours which were placed. HR remains elevated. 11/06: Patient remained in atrial fibrillation/atrial flutter with heart rate in the 150s despite being on amnio drip and was given amnio bolus, Cardizem bolus and started on Cardizem drip by cardiology. Patient is on beta-blockers p.o. scheduled and to feedings changed to Nepro. Kayexalate was given in the morning by nephrology due to hyperkalemia. 11/07: Patient is only responsive to mild stimuli, precedex added in an attempt to wean off fentanyl gtt to better assess her mental status. Neurology also on consult, pending MRI and EEG. Patient remains in Aflutter this am, HR in the 80 to 90s, still on amiodarone and heparin gtt. 11/08: Fentanyl gtt is off, only on precedex gtt. Patient is still not following any commands. MRI brain and EEG completed. Neuro recommendations noted, sedatives agents decreased. FWF added for hypernatremia and low K repleted, repeat labs ordered. Placed a call and spoke with patient's daughter, Eva Brown . She was updated on patient's conditions and status. All questions and concerns were voiced at this time. 11/09: Patient is awake and alert this am, following commands and appropriate. Remains on precedex gtt, plan for possible PST today. Hypertensive overnight, meds adjusted by Cardio and PRN Hydralazine added for SBP greater than 160. CT dislodged overnight, CXR is stable with no significant change. F/U CXR in the am. Patient's daughter, Eva Brown, visited with patient. She was updated on patient's status and goal of care for today. All questions and concerns were voiced at this time. 11/10: Mentation remains intact, still on precedex gtt. This am CXR noted still with fluid overload s/p X1 dose of IV lasix, good response from IV lasix overnight. Hypernatremia improved, D5W d/dayday. Still with persistent hypokalemia, continue electrolytes replacement and frequent lab check. Daily IV lasix and aldactone added by Cardio. Patient is also with persistent low grade fevers overnight, leukocytosis with mild improvement this am. Will get a repeat sputum culture, hold off on IV abx for now. Consider ID consult if fevers and leukocytosis persist. Patient tolerated PST X4hrs yesterday. PST again today, plan to wean to extubate if tolerated. 11/11: IAM overnight. Off precedex gtt and tolerated PST this am. Plan to wean to extubate today. Additional IV lasix given, plan to keep patient at a net negative balance for better lung compliance. F/U CXR in the am. K improved this am, repeat BMP this afternoon since diuresing. Remains with low grade fevers, leukocytosis downtrending, will continue to monitor. Speech/PT/OT ordered 11/12: S/p extubation, now stable on 3L NC. This am CXR noted with no significant changes, lasix changed to IV X4days BID. Drop in H&H this am, and Lt. flank ecchymosis noted. Heparin gtt on hold for now and orders placed for 1 unit of PRBCs and Ct Abd/Pelvis w/o con to r/o retroperitoneal bleed. Pending speech swallow eval, keep patient NPO for now. Patient is stable for IMCU status 11/13: Patient with increased WOB and tachycardia this am, patient was placed on Bipap and precedex gtt was resumed. CXR with mild improvement. CT Abd/Pelvis also reviewed large hematomas noted at the Lt. retroperitoneum and left posterior lateral abdominal wall. Heparin gtt is already on hold, patient is hemodynamically stable. Vascular Surgery consulted for possible IVC filter eval. Patient s/p 2units of PRBCs, will continue to trend H&H and transfuse if hbg is less than 7. Worsening renal function this am, IF diuretic on hold for now. Patient is also febrile with spike in wbcs most likely reactive to bleed, will panculture and hold off on IV Abx for now. Patient also failed speech bedside swallow eval yesterday, NGT in placed plan to resume enteral nutrition 11/14: Patient had bilateral lower extremity Doppler ultrasound and vascular surgery has recommended multiphasic CT angio of the abdomen and pelvis with and without contrast if H/H drops and does not recommend IVC filter at this time as the DVTs are infrapopliteal and recommends a DVT study weekly for 2 weeks. FWF 250 q4 ml per nephro. Started on as needed Xanax and p.o. amiodarone. She did not pass her ST evaluation today. Will be transferred to IMCU. 11/15: Resting comfortably on encounter. Speech cleared for pureed diet. Remains on 3l satting 98 % on bedside encounter. Does not appear to be in respiratory distress. Will continue to hold AC, No ivc filter planned at this time. qweekly doppler to monitor for migration of DVT per vascular. If demonstrated, will consider IVC filter. CBC ordered for tomorrow, will continue monitoring in light of retroperitoneal hematoma. FWF increased by nephrology to 350cc q4hr d/t hypernatremia. UOP/renal function both improved. D/w cardiology, will continue amiodorone an additional 24hrs. Plan to change dosing of metoprolol. Continue to wean off of precedex. Continue xanax scheduled for anxiety. physical therapy recs noted, fernanda / ltac will discuss with CM. Continue IMCU monitoring. 11/16: Pulmonary congestion this AM. CXR ordered. Lasix 40 mg IV x 1 order this AM. Will monitor for 24 hrs. potential downgrade to medical floor tomorrow. 11/17: Persisting pulmonary congestion, was on bipap overnight into this AM. Will order additional lasix 40 mg IV x 2. CXR ordered for AM. Possible downgrade to floor tomorrow. Anticipate d/c sunday. 11/18: Patient seen and examined, continue weaning, will continue diuresis BID, discussed with daughter. 11/19: Patient seen and examined this morning doing well no acute distress noted. Lasix was increased to twice daily to 20 mg IV. Clinically improving. Patient will be transferred to telemetry today can be switched to Lasix p.o. twice daily in a.m. She has her weekly Doppler of lower extremity tomorrow vascular is following for this. She was taken off anticoagulation secondary to retroperitoneal bleed., The anticoagulation was started initially for atrial fibrillation and an infrapopliteal DVT. During her hospital stay she had a prolonged ventilator management and was successfully weaned off. She also received a total of 4 units of packed red blood cell. Hemoglobin has remained stable. Anticipate discharge in next 48 hours if continues to clinically stay stable. History Interval history: Patient seen and examined, resting comfortable, no new complaints at this time resting comfortably. No acute event reported overnight Hospitalist Physical - Physical exam Narrative exam: General appearance: Present: no acute distress, obese - EENT Eyes: Present: PERRL, EOM intact ENT: hearing intact, dentition normal - Neck Neck: Present: normal ROM - Respiratory Respiratory effort: normal Respiratory: bilateral: CTA - Cardiovascular Rhythm: regular Heart Sounds: Present: S1 & S2, systolic murmur, diastolic murmur - Extremities Extremities: no ischemia, pulses intact, pulses symmetrical, normal temperature, normal color Peripheral Pulses: within normal limits - Abdominal General gastrointestinal: soft, non-distended, normal bowel sounds - Integumentary Integumentary: Present: warm, dry, bruising from hematoma noted. - Psychiatric Psychiatric: cooperative - Neurologic Neurologic: CNII-XII intact, moves all extremities - Allied Health Allied health notes reviewed: nursing, RT, social work - Constitutional Vitals: Temp Pulse Resp BP Pulse Ox 98.8 F 75 18 164/93 98 11/19/21 04:00 11/19/21 06:00 11/19/21 06:00 11/19/21 06:00 11/19/21 07:27 General appearance: Present: no acute distress, obese HEART Score - HEART Score Troponin: Troponin T 1.150 ng/mL (0.00-0.029) H* D 10/29/21 22:34 Results - Labs CBC & Chem 7: 11/18/21 04:53 11/18/21 04:53 Labs: Laboratory Last Values WBC 13.0 K/mm3 (4.5-11.0) H 11/18/21 04:53 RBC 2.99 M/mm3 (3.65-5.03) L 11/18/21 04:53 Hgb 8.5 gm/dl (10.1-14.3) L 11/18/21 04:53 Hct 26.4 % (30.3-42.9) L 11/18/21 04:53 MCV 88 fl (79-97) 11/18/21 04:53 MCH 28 pg (28-32) 11/18/21 04:53 MCHC 32 % (30-34) 11/18/21 04:53 RDW 15.1 % (13.2-15.2) 11/18/21 04:53 Plt Count 321 K/mm3 (140-440) 11/18/21 04:53 Lymph % (Auto) 9.5 % (13.4-35.0) L 11/18/21 04:53 [place] % (Auto) 9.8 % (0.0-7.3) H 11/18/21 04:53 Eos % (Auto) 1.8 % (0.0-4.3) 11/18/21 04:53 Baso % (Auto) 0.6 % (0.0-1.8) 11/18/21 04:53 Lymph # (Auto) 1.2 K/mm3 (1.2-5.4) 11/18/21 04:53 [place] # (Auto) 1.3 K/mm3 (0.0-0.8) H 11/18/21 04:53 Eos # (Auto) 0.2 K/mm3 (0.0-0.4) 11/18/21 04:53 Baso # (Auto) 0.1 K/mm3 (0.0-0.1) 11/18/21 04:53 Add Manual Diff Complete 11/07/21 06:30 Total Counted 100 11/07/21 06:30 Seg Neutrophils % 78.3 % (40.0-70.0) H 11/18/21 04:53 Seg Neuts % (Manual) 77.0 % (40.0-70.0) H 11/07/21 06:30 Band Neutrophils % 1.0 % 11/07/21 06:30 Lymphocytes % (Manual) 11.0 % (13.4-35.0) L 11/07/21 06:30 Reactive Lymphs % (Man) 3.0 % 11/07/21 06:30 Monocytes % (Manual) 2.0 % (0.0-7.3) 11/07/21 06:30 Eosinophils % (Manual) 0 % (0.0-4.3) 11/07/21 06:30 Basophils % (Manual) 0 % (0.0-1.8) 11/07/21 06:30 Metamyelocytes % 1.0 % 11/07/21 06:30 Myelocytes % 5.0 % 11/07/21 06:30 Promyelocytes % 0 % 11/07/21 06:30 Blast Cells % 0 % 11/07/21 06:30 Nucleated RBC % 2.0 % (0.0-0.9) H 11/07/21 06:30 Seg Neutrophils # 10.2 K/mm3 (1.8-7.7) H 11/18/21 04:53 Seg Neutrophils # Man 12.3 K/mm3 (1.8-7.7) H 11/07/21 06:30 Band Neutrophils # 0.2 K/mm3 11/07/21 06:30 Lymphocytes # (Manual) 1.8 K/mm3 (1.2-5.4) 11/07/21 06:30 Abs React Lymphs (Man) 0.5 K/mm3 11/07/21 06:30 Monocytes # (Manual) 0.3 K/mm3 (0.0-0.8) 11/07/21 06:30 Eosinophils # (Manual) 0.0 K/mm3 (0.0-0.4) 11/07/21 06:30 Basophils # (Manual) 0.0 K/mm3 (0.0-0.1) 11/07/21 06:30 Metamyelocytes # 0.2 K/mm3 11/07/21 06:30 Myelocytes # 0.8 K/mm3 11/07/21 06:30 Promyelocytes # 0.0 K/mm3 11/07/21 06:30 Blast Cells # 0.0 K/mm3 11/07/21 06:30 WBC Morphology Not Reportable 11/07/21 06:30 Hypersegmented Neuts Not Reportable 11/07/21 06:30 Hyposegmented Neuts Not Reportable 11/07/21 06:30 Hypogranular Neuts Not Reportable 11/07/21 06:30 Smudge Cells Not Reportable 11/07/21 06:30 Toxic Granulation Not Reportable 11/07/21 06:30 Toxic Vacuolation Not Reportable 11/07/21 06:30 Dohle Bodies Not Reportable 11/07/21 06:30 Pelger-Huet Anomaly Not Reportable 11/07/21 06:30 Manny Rods Not Reportable 11/07/21 06:30 Platelet Estimate Consistent w auto 11/07/21 06:30 Clumped Platelets Not Reportable 11/07/21 06:30 Plt Clumps, EDTA Not Reportable 11/07/21 06:30 Large Platelets 1+ 11/07/21 06:30 Giant Platelets Not Reportable 11/07/21 06:30 Platelet Satelliting Not Reportable 11/07/21 06:30 Plt Morphology Comment Not Reportable 11/07/21 06:30 RBC Morphology Not Reportable 11/07/21 06:30 Dimorphic RBCs Not Reportable 11/07/21 06:30 Polychromasia Not Reportable 11/07/21 06:30 Hypochromasia 1+ 0214/22 06:30 Poikilocytosis Not Reportable 11/07/21 06:30 Anisocytosis Not Reportable 11/07/21 06:30 Microcytosis Not Reportable 11/07/21 06:30 Macrocytosis Not Reportable 11/07/21 06:30 Spherocytes 1+ 11/07/21 06:30 Pappenheimer Bodies Not Reportable 11/07/21 06:30 Sickle Cells Not Reportable 11/07/21 06:30 Target Cells 1+ 11/07/21 06:30 Tear Drop Cells Not Reportable 11/07/21 06:30 Ovalocytes Not Reportable 11/07/21 06:30 Helmet Cells Not Reportable 11/07/21 06:30 [place] Bodies Not Reportable 11/07/21 06:30 [place] Rings Not Reportable 11/07/21 06:30 [place] Cells Not Reportable 11/07/21 06:30 Bite Cells Not Reportable 11/07/21 06:30 Crenated Cell Not Reportable 11/07/21 06:30 Elliptocytes Not Reportable 11/07/21 06:30 Acanthocytes (Spur) Not Reportable 11/07/21 06:30 Rouleaux Not Reportable 11/07/21 06:30 Hemoglobin C Crystals Not Reportable 11/07/21 06:30 Schistocytes Not Reportable 11/07/21 06:30 Malaria parasites Not Reportable 11/07/21 06:30 Magdy Bodies Not Reportable 11/07/21 06:30 Hem Pathologist Commnt No 11/07/21 06:30 PT 17.2 Sec. (12.2-14.9) H 10/30/21 16:30 INR 1.27 (0.87-1.13) H 10/30/21 16:30 APTT 44.4 Sec. (24.2-36.6) H 10/30/21 16:30 D-Dimer > 03615 ng/mlDDU (0-234) H 10/30/21 Unknown Heparin Anti-Xa Level 0.62 U.I./ml (0.3-0.7) 11/12/21 03:30 ABG pH 7.475 pH Units (7.350-7.450) H 11/11/21 13:53 ABG pCO2 45.0 mm Hg 11/11/21 13:53 ABG pO2 64.1 mm Hg (80.0-90.0) L 11/11/21 13:53 ABG HCO3 32.4 mmol/L (20.0-26.0) H 11/11/21 13:53 ABG O2 Saturation 96.3 % (95.0-99.0) 11/11/21 13:53 ABG O2 Content 10.1 (0.0-44) 11/11/21 13:53 ABG Base Excess 8.0 mmol/L (-2.0-3.0) H 11/11/21 13:53 ABG Hemoglobin 7.6 gm/dl (12.0-16.0) L 11/11/21 13:53 ABG Carboxyhemoglobin 1.8 % (0.0-5.0) 11/11/21 13:53 ABG Methemoglobin 0.5 % (0.0-1.5) 11/11/21 13:53 Oxyhemoglobin 94.0 % (95.0-99.0) L 11/11/21 13:53 FiO2 32 % 11/11/21 13:53 Sodium 142 mmol/L (137-145) 11/18/21 04:53 Potassium 3.7 mmol/L (3.6-5.0) 11/18/21 04:53 Chloride 101.8 mmol/L (98-107) 11/18/21 04:53 Carbon Dioxide 30 mmol/L (22-30) 11/18/21 04:53 Anion Gap 14 mmol/L 11/18/21 04:53 BUN 18 mg/dL (7-17) H 11/18/21 04:53 Creatinine 1.0 mg/dL (0.6-1.2) 11/18/21 04:53 Estimated GFR > 60 ml/min 11/18/21 04:53 BUN/Creatinine Ratio 18 % 11/18/21 04:53 Glucose 106 mg/dL (65-100) H 11/18/21 04:53 POC Glucose 102 mg/dL (70-105) 11/19/21 05:28 Hemoglobin A1c 6.7 % (4-6) H 10/31/21 04:30 Lactic Acid 0.70 mmol/L (0.7-2.0) 10/31/21 15:45 Calcium 8.1 mg/dL (8.4-10.2) L 11/18/21 04:53 Phosphorus 3.20 mg/dL (2.5-4.5) D 11/14/21 04:55 Magnesium 2.20 mg/dL (1.7-2.3) 11/14/21 04:55 Ferritin 208.4 ng/mL (10.0-200.0) H 10/30/21 Unknown Total Bilirubin < 0.20 mg/dL (0.1-1.2) 11/06/21 02:35 AST 21 units/L (5-40) 11/06/21 02:35 ALT 77 units/L (7-56) H 11/06/21 02:35 Alkaline Phosphatase 84 units/L (35-129) 11/06/21 02:35 Ammonia 31.0 umol/L (25-60) 10/29/21 15:10 Lactate Dehydrogenase 469 units/L (91-180) H 10/30/21 Unknown Troponin T 1.150 ng/mL (0.00-0.029) H* D 10/29/21 22:34 C-Reactive Protein 13.40 mg/dL (0.00-1.30) H 10/30/21 Unknown Total Protein 6.3 g/dL (6.3-8.2) 11/06/21 02:35 Albumin 3.0 g/dL (3.9-5) L 11/06/21 02:35 Albumin/Globulin Ratio 0.9 % 11/06/21 02:35 Triglycerides 68 mg/dL (2-149) 10/29/21 19:40 Cholesterol 98 mg/dL (50-199) 10/29/21 19:40 LDL Cholesterol Direct 43 mg/dL (50-130) L 10/29/21 19:40 HDL Cholesterol 50 mg/dL (40-59) 10/29/21 19:40 Cholesterol/HDL Ratio 1.96 % 10/29/21 19:40 Procalcitonin 61.95 ng/mL (<0.15) 10/30/21 Unknown TSH 3.080 mlU/mL (0.270-4.200) 10/29/21 15:10 Urine Color Yellow (Yellow) 11/13/21 08:30 Urine Turbidity Slightly-cloudy (Clear) 11/13/21 08:30 Urine pH 6.0 (5.0-7.0) 11/13/21 08:30 Ur Specific [place] 1.010 (1.003-1.030) 11/13/21 08:30 Urine Protein <15 mg/dl mg/dL (Negative) 11/13/21 08:30 Urine Glucose (UA) Neg mg/dL (Negative) 11/13/21 08:30 Urine Ketones Tr mg/dL (Negative) 11/13/21 08:30 Urine Blood Sm (Negative) 11/13/21 08:30 Urine Nitrite Neg (Negative) 11/13/21 08:30 Urine Bilirubin Neg (Negative) 11/13/21 08:30 Urine Urobilinogen < 2.0 mg/dL (<2.0) 11/13/21 08:30 Ur Leukocyte Esterase Neg (Negative) 11/13/21 08:30 Urine WBC (Auto) < 1.0 /HPF (0.0-6.0) 11/13/21 08:30 Urine RBC (Auto) < 1.0 /HPF (0.0-6.0) 11/13/21 08:30 U Epithel Cells (Auto) < 1.0 /HPF (0-13.0) 11/13/21 08:30 Urine Mucus Few /HPF 10/29/21 18:15 Urine Eosinophils None seen (None Seen) 11/04/21 Unknown Urine Creatinine 190.9 mg/dL (0.1-20.0) H 11/04/21 Unknown Protein/Creatinin Ratio 0.90 11/04/21 Unknown Urine Sodium 10 mmol/L 11/04/21 Unknown Urine Total Protein 172 mg/dL (5-11.8) H 11/04/21 Unknown Salicylates < 0.3 mg/dL (2.8-20.0) L 10/29/21 15:10 Urine Opiates Screen Negative 10/29/21 18:15 Urine Methadone Screen Negative 10/29/21 18:15 Acetaminophen 5.0 ug/mL (10.0-30.0) L 10/29/21 15:10 Ur Barbiturates Screen Negative 10/29/21 18:15 Ur Phencyclidine Scrn Negative 10/29/21 18:15 Ur Amphetamines Screen Negative 10/29/21 18:15 U Benzodiazepines Scrn Negative 10/29/21 18:15 Urine Cocaine Screen Negative 10/29/21 18:15 U Marijuana (THC) Screen Negative 10/29/21 18:15 Drugs of Abuse Note Disclamer 10/29/21 18:15 Plasma/Serum Alcohol < 0.01 % (0-0.07) 10/29/21 15:10 Coronavirus (PCR) Negative (Negative) 10/30/21 Unknown Blood Type O POSITIVE 11/12/21 04:15 Antibody Screen Negative 11/12/21 04:15 Crossmatch See Detail 11/12/21 04:15 Microbiology: Microbiology 11/13/21 08:38 Peripheral/Venous Blood Culture - Final NO GROWTH AFTER 5 DAYS 11/13/21 08:38 Peripheral/Venous Blood Culture - Final NO GROWTH AFTER 5 DAYS Krishna/IV: Voiding Method Indwelling Catheter Active Medications - Current Medications Current Medications: Generic Name Dose Route Start Last Admin Trade Name Freq PRN Reason Stop Dose Admin Acetaminophen 650 mg 10/29/21 17:04 11/12/21 22:53 Acetaminophen 650 Mg Rect Supp UT 650 mg Q6H PRN Administration Pain MILD(1-3)/Fever >100.5/NIEVES Alprazolam 0.25 mg 11/14/21 14:29 11/16/21 05:02 Alprazolam 0.25 Mg Tab PO 0.25 mg Q8H PRN Administration Anxiety Dextrose 0 ml 11/04/21 13:48 11/12/21 05:45 Dextrose 10% *Hypoglycemia IV 50 ml PRN PRN Administration Hypoglycemia Docusate Sodium 100 mg 11/18/21 15:00 11/18/21 23:43 Docusate Sodium 100 Mg Cap PO Not Given BID RAMON Famotidine 10 mg 11/06/21 10:00 11/18/21 21:38 Famotidine 10 Mg Tab PO 10 mg BID RAMON Administration Furosemide 20 mg 11/18/21 10:00 11/18/21 21:38 Furosemide 20 Mg/2 Ml Inj IV 20 mg BID RAMON Administration Hydrophilic Ointment 1 applic 10/29/21 14:29 11/09/21 08:51 Lip Therapy Vaseline TP 1 applic Q2HR PRN Administration Dry Lips Insulin Human Lispro 0 unit 10/30/21 16:00 11/19/21 00:30 Insulin Lispro 100 Unit/Ml SUB-Q Not Given Q6HR [facility] Protocol Lactulose 20 gm 11/18/21 14:43 11/18/21 15:06 Lactulose 20 Gm/30 Ml Oral Liqd PO 20 gm Q6H PRN Administration Constipation Losartan Potassium 25 mg 11/17/21 13:00 11/18/21 10:16 Losartan 25 Mg Tab PO 25 mg QDAY RAMON Administration Metoprolol Tartrate 100 mg 11/16/21 22:00 11/18/21 21:38 Metoprolol Tartrate 100 Mg Tab PO 100 mg BID RAMON Administration Morphine Sulfate 2 mg 11/16/21 21:16 11/19/21 06:08 Morphine 4 Mg/1 Ml Inj IV 2 mg Q3H PRN Administration Pain, Moderate (4-6) Multi-Ingred Cream/Lotion/Oil/Oint 1 applic 10/29/21 14:29 11/06/21 09:25 Mineral Oil/Petrolatum, White Ophth Oint 3.5 Gm OU 1 applic Q4HR PRN Administration Dry Eye(s) Senna/Docusate Sodium 1 tab 11/16/21 22:00 11/18/21 23:43 Sennosides/Docusate Sodium 8.6/50 Mg Tab PO Not Given BID RAMON Sodium Chloride 10 ml 10/29/21 22:00 11/18/21 23:43 Sodium Chloride 0.9% 10 Ml Flush Syringe IV Not Given BID RAMON Sodium Chloride 10 ml 10/29/21 17:04 Sodium Chloride 0.9% 10 Ml Flush Syringe IV PRN PRN LINE FLUSH Spironolactone 25 mg 11/10/21 10:00 11/18/21 10:15 Spironolactone 25 Mg Tab PO 25 mg QDAY RAMON Administration Nutrition/Malnutrition Assess - Dietary Evaluation Nutrition/Malnutrition Findings: Nutrition Notes Start: 10/30/21 09:50 Freq: Status: Active Protocol: Document 11/17/21 14:55 MEENU (Rec: 11/17/21 15:13 MEENU [id number]) Nutrition Notes Current Diagnosis Sepsis,Hypertension, Respiratory Failure Other Pertinent Diagnosis s/p Cardiac Arrest, DVT, Anemia, Pneumonia, Pneumothorax, P Edema, HFrEF.. . Current Diet Pureed Diet (since L 11/15). Height 5 ft 10 in Weight 112 kg [place] Body Weight (kg) 68.18 BMI 35.4 Weight change and time frame No body weight change reported in 2 days. Weight Status Obese Subjective/Other Information RD consulr for routine F/U on Diet tolerance/advancement. Reports on Pt's PO intake show that pt has a preference for Dinner (100%), that Breakfast or Lunch (0-50%), according to ADL notes. Plans for discharge Pt on . Percent of energy/protein needs met: Prescribed Pureed Diet provides for energy/protein needs (1,804 Kcal/77 g) during LOS. #1 Nutrition Diagnosis Inadequate oral intake Comments: Reports on Pt's PO intake show that pt has a preference for Dinner (100%), that Breakfast or Lunch (0-50%), according to ADL notes. Diagnosis Progress(for reassessment Improved documentation) Is patient on ventilator? No Is Patient Ambulatory and/or Out of Bed No REE-([place]-[facility] [facility]-confined to bed) [phone] Kcal/Kg value to use for calculation 15 Approximate Energy Requirements Using 1680 kcal/Kg Calculation Used for Recommendations Kcal/kg Additional Notes Protein: 0.8-1.2 g/Kg IBW; 70- 105 g/day. Fluids: 1 ml/Kcal, or as per MD. Nutrition Intervention Change Diet Order: Continue Pureed Diet. Goal #1 Maintain body weight within +/ -3% of admission body weight during LOS. Goal #2 Facilitate PO intake of meals with mechanical modification during LOS. Follow-Up By: 11/24/21 Additional Comments Continue monitoring food tolerance, %PO intake of meals , and BM.
[2021-11-19] MEDS: SPIRONOLACTONE 25 MG TAB PO SCH (10:55)
[2021-11-19] MEDS: LOSARTAN 25 MG TAB PO SCH (10:55)
[2021-11-19] MEDS: METOPROLOL TARTRATE 100 MG TAB PO SCH ×2 (10:56→21:52)
[2021-11-19] MEDS: FAMOTIDINE 10 MG TAB PO SCH ×2 (10:56→21:52)
[2021-11-19] MEDS: DOCUSATE SODIUM 100 MG CAP PO SCH ×2 (10:57→21:51)
[2021-11-19] MEDS: FUROSEMIDE 20 MG/2 ML INJ IV SCH ×2 (10:57→21:52)
[2021-11-19] MEDS: SENNOSIDES/DOCUSATE SODIUM 8.6/50 MG TAB PO SCH ×2 (10:57→21:51)
[2021-11-19 15:47] LABS: BUN/Creatinine Ratio 13; Blood Urea Nitrogen 13 mg/dL (7-17); Calcium 8.5 mg/dL (8.4-10.2); Hemolysis Index 2
[2021-11-19] MEDS ORDERED: oxyCODONE /ACETAMINOPHEN 5-325MG TAB PO PRN (16:36)
[2021-11-19] MEDS: ACETAMINOPHEN 325 MG TAB PO PRN (16:42)
--- NOTE | 2021-11-19 18:18 | Progress Note ---
Assessment and Plan 66 YO Female with Obesity presents to ED for evaluation. Patient is intubated and on ventilatory support . Patient was attending [facility] services when the patient collapsed and lost consciousness. Witnesses began CPR. EMS was notified and upon arrival the patient was found to be in distress without perfusing cardiac rhythm. Patient initiated on ACLS protocol and subsequently intubated in the field and subsequent transported to [facility] for further care and evaluation of the aforementioned symptoms. The patient regained spontaneous ci rculation during transport. Patient seen and evaluated upon arrival and found to have acute hypoxemic respiratory failure, septic shock suspected secondary to aspiration pneumonia, metabolic acidosis, toxic metabolic encephalopathy, shock liver, and cardiac arrest with return of perfusing cardiac rhythm after initiation of ACLS protocol. Patient initiated on sepsis protocol as well as pneumonia protocol. Patient admitted to ICU. No reports of fever, chills, chest pain, palpitation, productive cough, skin rash, recent contact, known exposure to COVID-19. Patient has history of diabetes and hypertension. According to the chart review, patient has no history of smoking, alcohol or drug abuse. Patient eventually extubated. Patient transfered to Telemetry. Patient presently on 4 litres O2. O2 saturation 98%. BIPAP 18/8, Rate 14, FIO2 30% stand by in the room. Patient Obese , awake. No acute respiratory distress. Patient afebrile. Has mild leukocytosis. Blood pressure 142/82, pulse 77, Respirations 18. Chest xray done 11/18/21 reported Improving interstitial edema. Patient presently on Lasix and famotidine. - Patient Problems (1) Acute hypoxemic respiratory failure Current Visit: Yes Status: Acute Plan to address problem: Patient presently on 4 litres O2. O2 saturation 98%. BIPAP 18/8, rate 14, FIO2 30% stand by in the room. Recommend DVT prophylaxis, SCDs Continue famotidine. (2) Acute metabolic encephalopathy Current Visit: Yes Status: Acute Plan to address problem: Management as per primary care. (3) Atrial fibrillation and flutter Current Visit: Yes Status: Acute Plan to address problem: Management as per cardiology. (4) Acute kidney injury Current Visit: Yes Status: Acute Plan to address problem: Management as per nephrology. Subjective Date of service: 11/19/21 Principal diagnosis: AHRF; Cardiac arrest; R. pneumothorax; pneumonia; AMS; DVT's; SIERRA; Obesity Interval history: 66 YO Female with Obesity presents to ED for evaluation. Patient is intubated and on ventilatory support . Patient was attending [facility] services when the patient collapsed and lost consciousness. Witnesses began CPR. EMS was notified and upon arrival the patient was found to be in distress without perfusing cardiac rhythm. Patient initiated on ACLS protocol and subsequently intubated in the field and subsequent transported to [facility] for further care and evaluation of the aforementioned symptoms. The patient regained spontaneous circulation during transport. Patient seen and evaluated upon arrival and found to have acute hypoxemic respiratory failure, septic shock suspected secondary to aspiration pneumonia, metabolic acidosis, toxic metabolic encephalopathy, shock liver, and cardiac arrest with return of perfusing cardiac rhythm after initiation of ACLS protocol. Patient initiated on sepsis protocol as well as pneumonia protocol. Patient admitted to ICU. No reports of fever, chills, chest pain, palpitation, productive cough, skin rash, recent contact, known expo sure to COVID-19. Patient has history of diabetes and hypertension. According to the chart review, patient has no history of smoking, alcohol or drug abuse. Patient eventually extubated. Patient transfered to Telemetry. Patient presently on 4 litres O2. O2 saturation 98%. BIPAP 18/8, Rate 14, FIO2 30% stand by in the room. Patient Obese , awake. No acute respiratory distress. Patient afebrile. Has mild leukocytosis. Blood pressure 142/82, pulse 77, Respirations 18. Chest xray done 11/18/21 reported Improving interstitial edema. Patient presently on Lasix and famotidine. Objective Vital Signs - 12hr 11/19/21 11/19/21 11/19/21 07:00 07:27 08:00 Temperature 98.5 F Pulse Rate 71 81 Pulse Rate [ 80 From Monitor] Respiratory 21 31 H Rate Blood Pressure 171/92 160/87 O2 Sat by Pulse 99 98 98 Oximetry 11/19/21 11/19/21 11/19/21 09:00 10:00 10:55 Temperature Pulse Rate 79 87 88 Pulse Rate [ From Monitor] Respiratory 30 H 29 H Rate Blood Pressure 172/84 176/90 176/90 O2 Sat by Pulse 98 91 Oximetry 11/19/21 11/19/21 11/19/21 10:56 11:00 11:31 Temperature Pulse Rate 86 87 77 Pulse Rate [ From Monitor] Respiratory 27 H 27 H Rate Blood Pressure 176/90 148/80 148/80 O2 Sat by Pulse 97 99 Oximetry 11/19/21 11/19/21 11/19/21 11:41 11:51 12:00 Temperature Pulse Rate 77 74 71 Pulse Rate [ From Monitor] Respiratory 22 16 25 H Rate Blood Pressure 148/80 148/80 170/83 O2 Sat by Pulse 100 99 99 Oximetry 11/19/21 11/19/21 11/19/21 15:00 15:28 17:29 Temperature 98.6 F Pulse Rate 73 72 Pulse Rate [ From Monitor] Respiratory Rate Blood Pressure 170/83 152/82 O2 Sat by Pulse 100 100 Oximetry Constitutional: no acute distress, alert Eyes: non-icteric, other (+ mild periorbital phymosis) ENT: oropharynx moist Neck: supple, no lymphadenopathy, no JVD, other (large circumference) Effort: mildly labored Ascultation: Bilateral: diminished breath sounds, rhonchi (scant) Percussion: Bilateral: not dull Cardiovascular: irregular rhythm, other (no R/M) Gastrointestinal: normoactive bowel sounds, soft, non-tender, other (obese) Integumentary: normal, other (Left flank ecchymosis with induration) Extremities: no cyanosis, pulses normal, no ischemia or petechiae, edema (2+) Neurologic: non-focal exam (grossly), pupils equal and round, other (Patient sleeping at this time.) Psychiatric: other (Unable to assess, Patient sleeping at this time.) CBC and BMP: 11/20/21 07:42 11/20/21 07:42 ABG, PT/INR, D-dimer: ABG ABG pH 7.475 pH Units (7.350-7.450) H 11/11/21 13:53 ABG pCO2 45.0 mm Hg 11/11/21 13:53 ABG pO2 64.1 mm Hg (80.0-90.0) L 11/11/21 13:53 ABG O2 Saturation 96.3 % (95.0-99.0) 11/11/21 13:53 PT/INR, D-dimer PT 17.2 Sec. (12.2-14.9) H 10/30/21 16:30 INR 1.27 (0.87-1.13) H 10/30/21 16:30 D-Dimer > 76468 ng/mlDDU (0-234) H 10/30/21 Unknown Abnormal lab findings: Abnormal Labs 10/29/21 10/29/21 10/29/21 15:10 15:10 15:10 WBC 27.8 H RBC Hgb Hct MCH 27 L RDW Plt Count Lymph % (Auto) [place] % (Auto) Lymph # (Auto) [place] # (Auto) Seg Neutrophils % Seg Neuts % (Manual) 78.0 H Lymphocytes % (Manual) 10.0 L Nucleated RBC % Seg Neutrophils # Seg Neutrophils # Man 21.7 H Monocytes # (Manual) 1.4 H PT INR APTT D-Dimer Heparin Anti-Xa Level ABG pH ABG pO2 ABG HCO3 ABG O2 Saturation ABG Base Excess ABG Hemoglobin Oxyhemoglobin Sodium Potassium Chloride Carbon Dioxide BUN Creatinine Glucose POC Glucose Hemoglobin A1c Lactic Acid 6.80 H* Calcium Phosphorus Magnesium Ferritin AST ALT Alkaline Phosphatase Lactate Dehydrogenase Troponin T 0.089 H C-Reactive Protein Total Protein Albumin LDL Cholesterol Direct Urine Creatinine Urine Total Protein Salicylates Acetaminophen Crossmatch 10/29/21 10/29/21 10/29/21 15:10 15:10 15:10 WBC RBC Hgb Hct MCH RDW Plt Count Lymph % (Auto) [place] % (Auto) Lymph # (Auto) [place] # (Auto) Seg Neutrophils % Seg Neuts % (Manual) Lymphocytes % (Manual) Nucleated RBC % Seg Neutrophils # Seg Neutrophils # Man Monocytes # (Manual) PT INR APTT D-Dimer Heparin Anti-Xa Level ABG pH ABG pO2 ABG HCO3 ABG O2 Saturation ABG Base Excess ABG Hemoglobin Oxyhemoglobin Sodium 136 L Potassium 2.8 L* Chloride 93.4 L Carbon Dioxide 20 L BUN Creatinine Glucose 330 H POC Glucose Hemoglobin A1c Lactic Acid Calcium Phosphorus Magnesium Ferritin AST 1013 H ALT 1289 H Alkaline Phosphatase 246 H Lactate Dehydrogenase Troponin T C-Reactive Protein Total Protein Albumin LDL Cholesterol Direct Urine Creatinine Urine Total Protein Salicylates < 0.3 L Acetaminophen 5.0 L Crossmatch 10/29/21 10/29/21 10/29/21 15:11 16:01 19:29 WBC RBC Hgb Hct MCH RDW Plt Count Lymph % (Auto) [place] % (Auto) Lymph # (Auto) [place] # (Auto) Seg Neutrophils % Seg Neuts % (Manual) Lymphocytes % (Manual) Nucleated RBC % Seg Neutrophils # Seg Neutrophils # Man Monocytes # (Manual) PT INR APTT D-Dimer Heparin Anti-Xa Level ABG pH 7.307 L ABG pO2 64.1 L ABG HCO3 ABG O2 Saturation 90.8 L ABG Base Excess -2.9 L ABG Hemoglobin Oxyhemoglobin 89.3 L Sodium Potassium Chloride Carbon Dioxide BUN Creatinine Glucose POC Glucose Hemoglobin A1c Lactic Acid 2.60 H* Calcium Phosphorus Magnesium 2.90 H Ferritin AST ALT Alkaline Phosphatase Lactate Dehydrogenase Troponin T C-Reactive Protein Total Protein Albumin LDL Cholesterol Direct Urine Creatinine Urine Total Protein Salicylates Acetaminophen Crossmatch 10/29/21 10/29/21 10/30/21 19:40 22:34 04:30 WBC 16.2 H RBC Hgb Hct MCH 26 L RDW 15.5 H Plt Count Lymph % (Auto) 6.2 L [place] % (Auto) Lymph # (Auto) 1.0 L [place] # (Auto) 0.9 H Seg Neutrophils % 88.1 H Seg Neuts % (Manual) Lymphocytes % (Manual) Nucleated RBC % Seg Neutrophils # 14.2 H Seg Neutrophils # Man Monocytes # (Manual) PT INR APTT D-Dimer Heparin Anti-Xa Level ABG pH ABG pO2 ABG HCO3 ABG O2 Saturation ABG Base Excess ABG Hemoglobin Oxyhemoglobin Sodium Potassium Chloride Carbon Dioxide BUN Creatinine Glucose POC Glucose Hemoglobin A1c Lactic Acid Calcium Phosphorus Magnesium Ferritin AST ALT Alkaline Phosphatase Lactate Dehydrogenase Troponin T 1.950 H* D 1.150 H* D C-Reactive Protein Total Protein Albumin LDL Cholesterol Direct 43 L Urine Creatinine Urine Total Protein Salicylates Acetaminophen Crossmatch 10/30/21 10/30/21 10/30/21 04:30 04:35 05:45 WBC RBC Hgb Hct MCH RDW Plt Count Lymph % (Auto) [place] % (Auto) Lymph # (Auto) [place] # (Auto) Seg Neutrophils % Seg Neuts % (Manual) Lymphocytes % (Manual) Nucleated RBC % Seg Neutrophils # Seg Neutrophils # Man Monocytes # (Manual) PT INR APTT D-Dimer Heparin Anti-Xa Level ABG pH ABG pO2 69.5 L ABG HCO3 ABG O2 Saturation ABG Base Excess -2.7 L ABG Hemoglobin Oxyhemoglobin 94.7 L Sodium Potassium Chloride Carbon Dioxide 21 L BUN Creatinine Glucose 159 H POC Glucose 151 H Hemoglobin A1c Lactic Acid Calcium 7.9 L D Phosphorus Magnesium Ferritin AST 461 H ALT 686 H Alkaline Phosphatase 130 H Lactate Dehydrogenase Troponin T C-Reactive Protein Total Protein 5.6 L D Albumin 3.2 L LDL Cholesterol Direct Urine Creatinine Urine Total Protein Salicylates Acetaminophen Crossmatch 10/30/21 10/30/21 10/30/21 11:24 15:59 16:30 WBC RBC Hgb Hct MCH RDW Plt Count Lymph % (Auto) [place] % (Auto) Lymph # (Auto) [place] # (Auto) Seg Neutrophils % Seg Neuts % (Manual) Lymphocytes % (Manual) Nucleated RBC % Seg Neutrophils # Seg Neutrophils # Man Monocytes # (Manual) PT 17.2 H INR 1.27 H APTT 44.4 H D-Dimer Heparin Anti-Xa Level ABG pH ABG pO2 ABG HCO3 ABG O2 Saturation ABG Base Excess ABG Hemoglobin Oxyhemoglobin Sodium Potassium Chloride Carbon Dioxide BUN Creatinine Glucose POC Glucose 153 H 109 H Hemoglobin A1c Lactic Acid Calcium Phosphorus Magnesium Ferritin AST ALT Alkaline Phosphatase Lactate Dehydrogenase Troponin T C-Reactive Protein Total Protein Albumin LDL Cholesterol Direct Urine Creatinine Urine Total Protein Salicylates Acetaminophen Crossmatch 10/30/21 10/30/21 10/30/21 23:00 Unknown Unknown WBC RBC Hgb Hct MCH RDW Plt Count Lymph % (Auto) [place] % (Auto) Lymph # (Auto) [place] # (Auto) Seg Neutrophils % Seg Neuts % (Manual) Lymphocytes % (Manual) Nucleated RBC % Seg Neutrophils # Seg Neutrophils # Man Monocytes # (Manual) PT INR APTT D-Dimer > 83539 H Heparin Anti-Xa Level 0.82 H ABG pH ABG pO2 ABG HCO3 ABG O2 Saturation ABG Base Excess ABG Hemoglobin Oxyhemoglobin Sodium Potassium Chloride Carbon Dioxide BUN Creatinine Glucose POC Glucose Hemoglobin A1c Lactic Acid Calcium Phosphorus Magnesium Ferritin 208.4 H AST ALT Alkaline Phosphatase Lactate Dehydrogenase Troponin T C-Reactive Protein Total Protein Albumin LDL Cholesterol Direct Urine Creatinine Urine Total Protein Salicylates Acetaminophen Crossmatch 10/30/21 10/31/21 10/31/21 Unknown 04:30 04:30 WBC 14.4 H RBC Hgb Hct MCH 26 L RDW Plt Count Lymph % (Auto) [place] % (Auto) Lymph # (Auto) [place] # (Auto) Seg Neutrophils % Seg Neuts % (Manual) Lymphocytes % (Manual) Nucleated RBC % Seg Neutrophils # Seg Neutrophils # Man Monocytes # (Manual) PT INR APTT D-Dimer Heparin Anti-Xa Level ABG pH ABG pO2 ABG HCO3 ABG O2 Saturation ABG Base Excess ABG Hemoglobin Oxyhemoglobin Sodium Potassium 3.5 L Chloride 107.5 H Carbon Dioxide 20 L BUN 28 H Creatinine 1.7 H Glucose 113 H POC Glucose Hemoglobin A1c Lactic Acid Calcium 7.9 L Phosphorus Magnesium Ferritin AST ALT Alkaline Phosphatase Lactate Dehydrogenase 469 H Troponin T C-Reactive Protein 13.40 H Total Protein Albumin LDL Cholesterol Direct Urine Creatinine Urine Total Protein Salicylates Acetaminophen Crossmatch 10/31/21 10/31/21 10/31/21 04:30 05:11 15:30 WBC RBC Hgb Hct MCH RDW Plt Count Lymph % (Auto) [place] % (Auto) Lymph # (Auto) [place] # (Auto) Seg Neutrophils % Seg Neuts % (Manual) Lymphocytes % (Manual) Nucleated RBC % Seg Neutrophils # Seg Neutrophils # Man Monocytes # (Manual) PT INR APTT D-Dimer Heparin Anti-Xa Level ABG pH 7.222 L ABG pO2 61.5 L ABG HCO3 ABG O2 Saturation 86.2 L ABG Base Excess -6.3 L ABG Hemoglobin 11.2 L Oxyhemoglobin 84.5 L Sodium Potassium Chloride Carbon Dioxide BUN Creatinine Glucose POC Glucose 106 H Hemoglobin A1c 6.7 H Lactic Acid Calcium Phosphorus Magnesium Ferritin AST ALT Alkaline Phosphatase Lactate Dehydrogenase Troponin T C-Reactive Protein Total Protein Albumin LDL Cholesterol Direct Urine Creatinine Urine Total Protein Salicylates Acetaminophen Crossmatch 10/31/21 10/31/21 10/31/21 16:07 16:35 17:45 WBC RBC Hgb Hct MCH RDW Plt Count Lymph % (Auto) [place] % (Auto) Lymph # (Auto) [place] # (Auto) Seg Neutrophils % Seg Neuts % (Manual) Lymphocytes % (Manual) Nucleated RBC % Seg Neutrophils # Seg Neutrophils # Man Monocytes # (Manual) PT INR APTT D-Dimer Heparin Anti-Xa Level ABG pH 7.267 L ABG pO2 58.3 L ABG HCO3 ABG O2 Saturation 88.3 L ABG Base Excess -5.9 L ABG Hemoglobin 10.1 L Oxyhemoglobin 86.5 L Sodium Potassium Chloride Carbon Dioxide BUN Creatinine Glucose POC Glucose 115 H Hemoglobin A1c Lactic Acid Calcium Phosphorus Magnesium Ferritin AST ALT Alkaline Phosphatase Lactate Dehydrogenase Troponin T C-Reactive Protein Total Protein Albumin LDL Cholesterol Direct Urine Creatinine 383.6 H Urine Total Protein Salicylates Acetaminophen Crossmatch 11/01/21 11/01/21 11/01/21 00:06 05:08 06:00 WBC 12.6 H RBC 3.43 L Hgb 8.9 L Hct 28.7 L MCH 26 L RDW 15.7 H Plt Count 130 L Lymph % (Auto) [place] % (Auto) Lymph # (Auto) [place] # (Auto) Seg Neutrophils % Seg Neuts % (Manual) Lymphocytes % (Manual) Nucleated RBC % Seg Neutrophils # Seg Neutrophils # Man Monocytes # (Manual) PT INR APTT D-Dimer Heparin Anti-Xa Level ABG pH ABG pO2 ABG HCO3 ABG O2 Saturation ABG Base Excess ABG Hemoglobin Oxyhemoglobin Sodium Potassium Chloride Carbon Dioxide BUN Creatinine Glucose POC Glucose 114 H 120 H Hemoglobin A1c Lactic Acid Calcium Phosphorus Magnesium Ferritin AST ALT Alkaline Phosphatase Lactate Dehydrogenase Troponin T C-Reactive Protein Total Protein Albumin LDL Cholesterol Direct Urine Creatinine Urine Total Protein Salicylates Acetaminophen Crossmatch 11/01/21 11/01/21 11/01/21 06:00 11:43 14:00 WBC RBC Hgb Hct MCH RDW Plt Count Lymph % (Auto) [place] % (Auto) Lymph # (Auto) [place] # (Auto) Seg Neutrophils % Seg Neuts % (Manual) Lymphocytes % (Manual) Nucleated RBC % Seg Neutrophils # Seg Neutrophils # Man Monocytes # (Manual) PT INR APTT D-Dimer Heparin Anti-Xa Level ABG pH 7.349 L ABG pO2 75.6 L ABG HCO3 ABG O2 Saturation ABG Base Excess -3.9 L ABG Hemoglobin 9.8 L Oxyhemoglobin 93.5 L Sodium Potassium Chloride 114.1 H Carbon Dioxide 20 L BUN 33 H Creatinine Glucose 131 H POC Glucose 151 H Hemoglobin A1c Lactic Acid Calcium 7.7 L Phosphorus Magnesium Ferritin AST 79 H ALT 259 H Alkaline Phosphatase Lactate Dehydrogenase Troponin T C-Reactive Protein Total Protein 5.5 L Albumin 2.7 L LDL Cholesterol Direct Urine Creatinine Urine Total Protein Salicylates Acetaminophen Crossmatch 11/01/21 11/01/21 11/02/21 16:45 22:55 05:12 WBC RBC Hgb Hct MCH RDW Plt Count Lymph % (Auto) [place] % (Auto) Lymph # (Auto) [place] # (Auto) Seg Neutrophils % Seg Neuts % (Manual) Lymphocytes % (Manual) Nucleated RBC % Seg Neutrophils # Seg Neutrophils # Man Monocytes # (Manual) PT INR APTT D-Dimer Heparin Anti-Xa Level ABG pH ABG pO2 ABG HCO3 ABG O2 Saturation ABG Base Excess ABG Hemoglobin Oxyhemoglobin Sodium Potassium Chloride Carbon Dioxide BUN Creatinine Glucose POC Glucose 119 H 129 H 140 H Hemoglobin A1c Lactic Acid Calcium Phosphorus Magnesium Ferritin AST ALT Alkaline Phosphatase Lactate Dehydrogenase Troponin T C-Reactive Protein Total Protein Albumin LDL Cholesterol Direct Urine Creatinine Urine Total Protein Salicylates Acetaminophen Crossmatch 11/02/21 11/02/21 11/02/21 05:35 05:35 09:35 WBC 13.5 H RBC 3.60 L Hgb 9.7 L Hct MCH 27 L RDW 15.7 H Plt Count Lymph % (Auto) [place] % (Auto) Lymph # (Auto) [place] # (Auto) Seg Neutrophils % Seg Neuts % (Manual) Lymphocytes % (Manual) Nucleated RBC % Seg Neutrophils # Seg Neutrophils # Man Monocytes # (Manual) PT INR APTT D-Dimer Heparin Anti-Xa Level ABG pH 7.208 L ABG pO2 75.9 L ABG HCO3 ABG O2 Saturation 93.6 L ABG Base Excess -4.3 L ABG Hemoglobin 9.1 L Oxyhemoglobin 91.6 L Sodium Potassium 5.2 H D Chloride 112.6 H Carbon Dioxide BUN 32 H Creatinine Glucose 152 H POC Glucose Hemoglobin A1c Lactic Acid Calcium 8.2 L Phosphorus Magnesium 2.70 H Ferritin AST ALT Alkaline Phosphatase Lactate Dehydrogenase Troponin T C-Reactive Protein Total Protein Albumin LDL Cholesterol Direct Urine Creatinine Urine Total Protein Salicylates Acetaminophen Crossmatch 11/02/21 11/02/21 11/02/21 11:44 17:13 23:43 WBC RBC Hgb Hct MCH RDW Plt Count Lymph % (Auto) [place] % (Auto) Lymph # (Auto) [place] # (Auto) Seg Neutrophils % Seg Neuts % (Manual) Lymphocytes % (Manual) Nucleated RBC % Seg Neutrophils # Seg Neutrophils # Man Monocytes # (Manual) PT INR APTT D-Dimer Heparin Anti-Xa Level ABG pH ABG pO2 ABG HCO3 ABG O2 Saturation ABG Base Excess ABG Hemoglobin Oxyhemoglobin Sodium Potassium Chloride Carbon Dioxide BUN Creatinine Glucose POC Glucose 173 H 148 H 137 H Hemoglobin A1c Lactic Acid Calcium Phosphorus Magnesium Ferritin AST ALT Alkaline Phosphatase Lactate Dehydrogenase Troponin T C-Reactive Protein Total Protein Albumin LDL Cholesterol Direct Urine Creatinine Urine Total Protein Salicylates Acetaminophen Crossmatch 11/03/21 11/03/21 11/03/21 04:59 06:00 06:00 WBC RBC 3.43 L Hgb 9.1 L Hct 29.0 L MCH 26 L RDW 16.4 H Plt Count Lymph % (Auto) [place] % (Auto) Lymph # (Auto) [place] # (Auto) Seg Neutrophils % Seg Neuts % (Manual) Lymphocytes % (Manual) Nucleated RBC % Seg Neutrophils # Seg Neutrophils # Man Monocytes # (Manual) PT INR APTT D-Dimer Heparin Anti-Xa Level 0.17 L ABG pH ABG pO2 ABG HCO3 ABG O2 Saturation ABG Base Excess ABG Hemoglobin Oxyhemoglobin Sodium Potassium Chloride Carbon Dioxide BUN Creatinine Glucose POC Glucose 167 H Hemoglobin A1c Lactic Acid Calcium Phosphorus Magnesium Ferritin AST ALT Alkaline Phosphatase Lactate Dehydrogenase Troponin T C-Reactive Protein Total Protein Albumin LDL Cholesterol Direct Urine Creatinine Urine Total Protein Salicylates Acetaminophen Crossmatch 11/03/21 11/03/21 11/03/21 06:00 09:20 11:58 WBC RBC Hgb Hct MCH RDW Plt Count Lymph % (Auto) [place] % (Auto) Lymph # (Auto) [place] # (Auto) Seg Neutrophils % Seg Neuts % (Manual) Lymphocytes % (Manual) Nucleated RBC % Seg Neutrophils # Seg Neutrophils # Man Monocytes # (Manual) PT INR APTT D-Dimer Heparin Anti-Xa Level ABG pH 7.274 L ABG pO2 75.6 L ABG HCO3 ABG O2 Saturation 94.9 L ABG Base Excess -2.5 L ABG Hemoglobin 9.3 L Oxyhemoglobin 92.9 L Sodium 149 H Potassium Chloride 117.5 H Carbon Dioxide BUN 32 H Creatinine Glucose 173 H POC Glucose 192 H Hemoglobin A1c Lactic Acid Calcium 8.1 L Phosphorus Magnesium Ferritin AST ALT Alkaline Phosphatase Lactate Dehydrogenase Troponin T C-Reactive Protein Total Protein Albumin LDL Cholesterol Direct Urine Creatinine Urine Total Protein Salicylates Acetaminophen Crossmatch 11/03/21 11/03/21 11/04/21 18:22 Unknown 00:09 WBC RBC Hgb Hct MCH RDW Plt Count Lymph % (Auto) [place] % (Auto) Lymph # (Auto) [place] # (Auto) Seg Neutrophils % Seg Neuts % (Manual) Lymphocytes % (Manual) Nucleated RBC % Seg Neutrophils # Seg Neutrophils # Man Monocytes # (Manual) PT INR APTT D-Dimer Heparin Anti-Xa Level 0.29 L ABG pH ABG pO2 ABG HCO3 ABG O2 Saturation ABG Base Excess ABG Hemoglobin Oxyhemoglobin Sodium Potassium Chloride Carbon Dioxide BUN Creatinine Glucose POC Glucose 178 H 221 H Hemoglobin A1c Lactic Acid Calcium Phosphorus Magnesium Ferritin AST ALT Alkaline Phosphatase Lactate Dehydrogenase Troponin T C-Reactive Protein Total Protein Albumin LDL Cholesterol Direct Urine Creatinine Urine Total Protein Salicylates Acetaminophen Crossmatch 11/04/21 11/04/21 11/04/21 05:09 09:40 09:40 WBC 16.8 H RBC Hgb Hct MCH 27 L RDW 16.5 H Plt Count Lymph % (Auto) [place] % (Auto) Lymph # (Auto) [place] # (Auto) Seg Neutrophils % Seg Neuts % (Manual) Lymphocytes % (Manual) Nucleated RBC % Seg Neutrophils # Seg Neutrophils # Man Monocytes # (Manual) PT INR APTT D-Dimer Heparin Anti-Xa Level ABG pH ABG pO2 ABG HCO3 ABG O2 Saturation ABG Base Excess ABG Hemoglobin Oxyhemoglobin Sodium Potassium 5.9 H Chloride 108.5 H Carbon Dioxide BUN 54 H Creatinine 1.8 H Glucose 198 H POC Glucose 182 H Hemoglobin A1c Lactic Acid Calcium Phosphorus Magnesium 3.00 H Ferritin AST ALT Alkaline Phosphatase Lactate Dehydrogenase Troponin T C-Reactive Protein Total Protein Albumin LDL Cholesterol Direct Urine Creatinine Urine Total Protein Salicylates Acetaminophen Crossmatch 11/04/21 11/04/21 11/04/21 12:13 13:34 14:05 WBC RBC Hgb Hct MCH RDW Plt Count Lymph % (Auto) [place] % (Auto) Lymph # (Auto) [place] # (Auto) Seg Neutrophils % Seg Neuts % (Manual) Lymphocytes % (Manual) Nucleated RBC % Seg Neutrophils # Seg Neutrophils # Man Monocytes # (Manual) PT INR APTT D-Dimer Heparin Anti-Xa Level ABG pH 7.223 L ABG pO2 71.3 L ABG HCO3 ABG O2 Saturation 92.8 L ABG Base Excess ABG Hemoglobin 8.2 L Oxyhemoglobin 91.0 L Sodium Potassium Chloride Carbon Dioxide BUN Creatinine Glucose POC Glucose 184 H Hemoglobin A1c Lactic Acid Calcium Phosphorus Magnesium Ferritin AST ALT Alkaline Phosphatase Lactate Dehydrogenase Troponin T C-Reactive Protein Total Protein Albumin LDL Cholesterol Direct Urine Creatinine 184.6 H Urine Total Protein Salicylates Acetaminophen Crossmatch 11/04/21 11/04/21 11/05/21 18:02 Unknown 00:07 WBC RBC Hgb Hct MCH RDW Plt Count Lymph % (Auto) [place] % (Auto) Lymph # (Auto) [place] # (Auto) Seg Neutrophils % Seg Neuts % (Manual) Lymphocytes % (Manual) Nucleated RBC % Seg Neutrophils # Seg Neutrophils # Man Monocytes # (Manual) PT INR APTT D-Dimer Heparin Anti-Xa Level ABG pH ABG pO2 ABG HCO3 ABG O2 Saturation ABG Base Excess ABG Hemoglobin Oxyhemoglobin Sodium Potassium Chloride Carbon Dioxide BUN Creatinine Glucose POC Glucose 262 H 259 H Hemoglobin A1c Lactic Acid Calcium Phosphorus Magnesium Ferritin AST ALT Alkaline Phosphatase Lactate Dehydrogenase Troponin T C-Reactive Protein Total Protein Albumin LDL Cholesterol Direct Urine Creatinine 190.9 H Urine Total Protein 172 H Salicylates Acetaminophen Crossmatch 11/05/21 11/05/21 11/05/21 04:20 04:20 05:30 WBC 17.9 H RBC 3.64 L Hgb 9.7 L Hct MCH 27 L RDW 16.4 H Plt Count Lymph % (Auto) [place] % (Auto) Lymph # (Auto) [place] # (Auto) Seg Neutrophils % Seg Neuts % (Manual) Lymphocytes % (Manual) Nucleated RBC % Seg Neutrophils # Seg Neutrophils # Man Monocytes # (Manual) PT INR APTT D-Dimer Heparin Anti-Xa Level ABG pH ABG pO2 ABG HCO3 ABG O2 Saturation ABG Base Excess ABG Hemoglobin Oxyhemoglobin Sodium Potassium 5.6 H Chloride 108.4 H Carbon Dioxide BUN 71 H Creatinine 1.9 H Glucose 270 H POC Glucose 283 H Hemoglobin A1c Lactic Acid Calcium Phosphorus Magnesium Ferritin AST ALT Alkaline Phosphatase Lactate Dehydrogenase Troponin T C-Reactive Protein Total Protein Albumin LDL Cholesterol Direct Urine Creatinine Urine Total Protein Salicylates Acetaminophen Crossmatch 11/05/21 11/05/21 11/05/21 10:05 12:10 15:29 WBC RBC Hgb Hct MCH RDW Plt Count Lymph % (Auto) [place] % (Auto) Lymph # (Auto) [place] # (Auto) Seg Neutrophils % Seg Neuts % (Manual) Lymphocytes % (Manual) Nucleated RBC % Seg Neutrophils # Seg Neutrophils # Man Monocytes # (Manual) PT INR APTT D-Dimer Heparin Anti-Xa Level ABG pH 7.248 L ABG pO2 73.7 L ABG HCO3 26.2 H ABG O2 Saturation 93.1 L ABG Base Excess ABG Hemoglobin 8.9 L Oxyhemoglobin 91.4 L Sodium Potassium Chloride Carbon Dioxide BUN Creatinine Glucose POC Glucose 225 H 199 H Hemoglobin A1c Lactic Acid Calcium Phosphorus Magnesium Ferritin AST ALT Alkaline Phosphatase Lactate Dehydrogenase Troponin T C-Reactive Protein Total Protein Albumin LDL Cholesterol Direct Urine Creatinine Urine Total Protein Salicylates Acetaminophen Crossmatch 11/05/21 11/05/21 11/05/21 15:51 17:32 17:40 WBC RBC Hgb Hct MCH RDW Plt Count Lymph % (Auto) [place] % (Auto) Lymph # (Auto) [place] # (Auto) Seg Neutrophils % Seg Neuts % (Manual) Lymphocytes % (Manual) Nucleated RBC % Seg Neutrophils # Seg Neutrophils # Man Monocytes # (Manual) PT INR APTT D-Dimer Heparin Anti-Xa Level ABG pH ABG pO2 ABG HCO3 ABG O2 Saturation ABG Base Excess ABG Hemoglobin Oxyhemoglobin Sodium Potassium 5.2 H Chloride 107.8 H Carbon Dioxide BUN 79 H Creatinine 1.9 H Glucose 204 H POC Glucose 278 H 197 H Hemoglobin A1c Lactic Acid Calcium Phosphorus Magnesium Ferritin AST ALT Alkaline Phosphatase Lactate Dehydrogenase Troponin T C-Reactive Protein Total Protein Albumin LDL Cholesterol Direct Urine Creatinine Urine Total Protein Salicylates Acetaminophen Crossmatch 11/05/21 11/05/21 11/05/21 21:25 22:22 23:43 WBC RBC Hgb Hct MCH RDW Plt Count Lymph % (Auto) [place] % (Auto) Lymph # (Auto) [place] # (Auto) Seg Neutrophils % Seg Neuts % (Manual) Lymphocytes % (Manual) Nucleated RBC % Seg Neutrophils # Seg Neutrophils # Man Monocytes # (Manual) PT INR APTT D-Dimer Heparin Anti-Xa Level ABG pH ABG pO2 ABG HCO3 ABG O2 Saturation ABG Base Excess ABG Hemoglobin Oxyhemoglobin Sodium Potassium 5.3 H Chloride 109.2 H Carbon Dioxide BUN 81 H Creatinine 2.0 H Glucose 195 H POC Glucose 180 H 203 H Hemoglobin A1c Lactic Acid Calcium Phosphorus Magnesium Ferritin AST ALT Alkaline Phosphatase Lactate Dehydrogenase Troponin T C-Reactive Protein Total Protein Albumin LDL Cholesterol Direct Urine Creatinine Urine Total Protein Salicylates Acetaminophen Crossmatch 11/05/21 11/06/21 11/06/21 Unknown 02:35 05:09 WBC RBC Hgb Hct MCH RDW Plt Count Lymph % (Auto) [place] % (Auto) Lymph # (Auto) [place] # (Auto) Seg Neutrophils % Seg Neuts % (Manual) Lymphocytes % (Manual) Nucleated RBC % Seg Neutrophils # Seg Neutrophils # Man Monocytes # (Manual) PT INR APTT D-Dimer Heparin Anti-Xa Level ABG pH ABG pO2 ABG HCO3 ABG O2 Saturation ABG Base Excess ABG Hemoglobin Oxyhemoglobin Sodium 146 H Potassium 6.0 H Chloride 108.1 H 107.1 H Carbon Dioxide 21 L BUN 80 H 84 H Creatinine 2.0 H 2.0 H Glucose 238 H 235 H POC Glucose 215 H Hemoglobin A1c Lactic Acid Calcium Phosphorus Magnesium 2.80 H Ferritin AST ALT 77 H Alkaline Phosphatase Lactate Dehydrogenase Troponin T C-Reactive Protein Total Protein Albumin 3.0 L LDL Cholesterol Direct Urine Creatinine Urine Total Protein Salicylates Acetaminophen Crossmatch 11/06/21 11/06/21 11/06/21 05:40 08:07 08:07 WBC RBC Hgb Hct MCH RDW Plt Count Lymph % (Auto) [place] % (Auto) Lymph # (Auto) [place] # (Auto) Seg Neutrophils % Seg Neuts % (Manual) Lymphocytes % (Manual) Nucleated RBC % Seg Neutrophils # Seg Neutrophils # Man Monocytes # (Manual) PT INR APTT D-Dimer Heparin Anti-Xa Level 1.24 H ABG pH 7.311 L ABG pO2 72.8 L ABG HCO3 29.7 H ABG O2 Saturation 94.1 L ABG Base Excess ABG Hemoglobin 11.4 L Oxyhemoglobin 92.3 L Sodium Potassium 5.2 H Chloride Carbon Dioxide BUN 85 H Creatinine 2.3 H Glucose 236 H POC Glucose Hemoglobin A1c Lactic Acid Calcium Phosphorus Magnesium Ferritin AST ALT Alkaline Phosphatase Lactate Dehydrogenase Troponin T C-Reactive Protein Total Protein Albumin LDL Cholesterol Direct Urine Creatinine Urine Total Protein Salicylates Acetaminophen Crossmatch 11/06/21 11/06/21 11/06/21 12:14 12:57 14:28 WBC RBC Hgb Hct MCH RDW Plt Count Lymph % (Auto) [place] % (Auto) Lymph # (Auto) [place] # (Auto) Seg Neutrophils % Seg Neuts % (Manual) Lymphocytes % (Manual) Nucleated RBC % Seg Neutrophils # Seg Neutrophils # Man Monocytes # (Manual) PT INR APTT D-Dimer Heparin Anti-Xa Level ABG pH 7.282 L ABG pO2 72.6 L ABG HCO3 30.8 H ABG O2 Saturation 93.7 L ABG Base Excess 3.2 H ABG Hemoglobin 8.6 L Oxyhemoglobin 91.8 L Sodium Potassium Chloride Carbon Dioxide BUN 91 H Creatinine 2.6 H Glucose 259 H POC Glucose 225 H Hemoglobin A1c Lactic Acid Calcium Phosphorus Magnesium Ferritin AST ALT Alkaline Phosphatase Lactate Dehydrogenase Troponin T C-Reactive Protein Total Protein Albumin LDL Cholesterol Direct Urine Creatinine Urine Total Protein Salicylates Acetaminophen Crossmatch 11/06/21 11/06/21 11/06/21 17:28 19:20 21:30 WBC RBC Hgb Hct MCH RDW Plt Count Lymph % (Auto) [place] % (Auto) Lymph # (Auto) [place] # (Auto) Seg Neutrophils % Seg Neuts % (Manual) Lymphocytes % (Manual) Nucleated RBC % Seg Neutrophils # Seg Neutrophils # Man Monocytes # (Manual) PT INR APTT D-Dimer Heparin Anti-Xa Level 0.73 H ABG pH ABG pO2 ABG HCO3 ABG O2 Saturation ABG Base Excess ABG Hemoglobin Oxyhemoglobin Sodium Potassium Chloride Carbon Dioxide BUN 95 H Creatinine 2.9 H Glucose 233 H POC Glucose 206 H Hemoglobin A1c Lactic Acid Calcium Phosphorus Magnesium Ferritin AST ALT Alkaline Phosphatase Lactate Dehydrogenase Troponin T C-Reactive Protein Total Protein Albumin LDL Cholesterol Direct Urine Creatinine Urine Total Protein Salicylates Acetaminophen Crossmatch 11/06/21 11/07/21 11/07/21 22:56 05:06 06:30 WBC RBC Hgb Hct MCH RDW Plt Count Lymph % (Auto) [place] % (Auto) Lymph # (Auto) [place] # (Auto) Seg Neutrophils % Seg Neuts % (Manual) Lymphocytes % (Manual) Nucleated RBC % Seg Neutrophils # Seg Neutrophils # Man Monocytes # (Manual) PT INR APTT D-Dimer Heparin Anti-Xa Level ABG pH ABG pO2 ABG HCO3 ABG O2 Saturation ABG Base Excess ABG Hemoglobin Oxyhemoglobin Sodium 146 H Potassium Chloride Carbon Dioxide BUN 98 H Creatinine 2.8 H Glucose 202 H POC Glucose 215 H 172 H Hemoglobin A1c Lactic Acid Calcium Phosphorus 4.90 H D Magnesium 2.90 H Ferritin AST ALT Alkaline Phosphatase Lactate Dehydrogenase Troponin T C-Reactive Protein Total Protein Albumin LDL Cholesterol Direct Urine Creatinine Urine Total Protein Salicylates Acetaminophen Crossmatch 11/07/21 11/07/21 11/07/21 06:30 11:26 12:15 WBC 16.0 H RBC 3.06 L Hgb 8.2 L Hct 26.1 L MCH 27 L RDW 16.2 H Plt Count Lymph % (Auto) [place] % (Auto) Lymph # (Auto) [place] # (Auto) Seg Neutrophils % Seg Neuts % (Manual) 77.0 H Lymphocytes % (Manual) 11.0 L Nucleated RBC % 2.0 H Seg Neutrophils # Seg Neutrophils # Man 12.3 H Monocytes # (Manual) PT INR APTT D-Dimer Heparin Anti-Xa Level ABG pH 7.298 L ABG pO2 73.0 L ABG HCO3 33.3 H ABG O2 Saturation 94.4 L ABG Base Excess 5.8 H ABG Hemoglobin 8.2 L Oxyhemoglobin 92.7 L Sodium Potassium Chloride Carbon Dioxide BUN Creatinine Glucose POC Glucose 179 H Hemoglobin A1c Lactic Acid Calcium Phosphorus Magnesium Ferritin AST ALT Alkaline Phosphatase Lactate Dehydrogenase Troponin T C-Reactive Protein Total Protein Albumin LDL Cholesterol Direct Urine Creatinine Urine Total Protein Salicylates Acetaminophen Crossmatch 11/07/21 11/07/21 11/07/21 17:57 22:16 23:49 WBC RBC Hgb Hct MCH RDW Plt Count Lymph % (Auto) [place] % (Auto) Lymph # (Auto) [place] # (Auto) Seg Neutrophils % Seg Neuts % (Manual) Lymphocytes % (Manual) Nucleated RBC % Seg Neutrophils # Seg Neutrophils # Man Monocytes # (Manual) PT INR APTT D-Dimer Heparin Anti-Xa Level ABG pH ABG pO2 ABG HCO3 ABG O2 Saturation ABG Base Excess ABG Hemoglobin Oxyhemoglobin Sodium Potassium Chloride Carbon Dioxide BUN Creatinine Glucose POC Glucose 166 H 223 H 190 H Hemoglobin A1c Lactic Acid Calcium Phosphorus Magnesium Ferritin AST ALT Alkaline Phosphatase Lactate Dehydrogenase Troponin T C-Reactive Protein Total Protein Albumin LDL Cholesterol Direct Urine Creatinine Urine Total Protein Salicylates Acetaminophen Crossmatch 11/08/21 11/08/21 11/08/21 04:20 04:20 06:16 WBC 22.1 H RBC 3.01 L Hgb 8.1 L Hct 25.6 L MCH 27 L RDW 15.4 H Plt Count Lymph % (Auto) [place] % (Auto) Lymph # (Auto) [place] # (Auto) Seg Neutrophils % Seg Neuts % (Manual) Lymphocytes % (Manual) Nucleated RBC % Seg Neutrophils # Seg Neutrophils # Man Monocytes # (Manual) PT INR APTT D-Dimer Heparin Anti-Xa Level ABG pH ABG pO2 ABG HCO3 ABG O2 Saturation ABG Base Excess ABG Hemoglobin Oxyhemoglobin Sodium 151 H Potassium 3.1 L D Chloride 107.3 H Carbon Dioxide 31 H BUN 82 H Creatinine 1.8 H Glucose 232 H POC Glucose 198 H Hemoglobin A1c Lactic Acid Calcium 8.1 L Phosphorus Magnesium Ferritin AST ALT Alkaline Phosphatase Lactate Dehydrogenase Troponin T C-Reactive Protein Total Protein Albumin LDL Cholesterol Direct Urine Creatinine Urine Total Protein Salicylates Acetaminophen Crossmatch 11/08/21 11/08/21 11/08/21 11:38 12:00 18:29 WBC RBC Hgb Hct MCH RDW Plt Count Lymph % (Auto) [place] % (Auto) Lymph # (Auto) [place] # (Auto) Seg Neutrophils % Seg Neuts % (Manual) Lymphocytes % (Manual) Nucleated RBC % Seg Neutrophils # Seg Neutrophils # Man Monocytes # (Manual) PT INR APTT D-Dimer Heparin Anti-Xa Level ABG pH ABG pO2 ABG HCO3 ABG O2 Saturation ABG Base Excess ABG Hemoglobin Oxyhemoglobin Sodium Potassium 3.0 L Chloride Carbon Dioxide BUN Creatinine Glucose POC Glucose 190 H 211 H Hemoglobin A1c Lactic Acid Calcium Phosphorus Magnesium Ferritin AST ALT Alkaline Phosphatase Lactate Dehydrogenase Troponin T C-Reactive Protein Total Protein Albumin LDL Cholesterol Direct Urine Creatinine Urine Total Protein Salicylates Acetaminophen Crossmatch 11/08/21 11/08/21 11/09/21 21:34 21:40 00:36 WBC RBC Hgb Hct MCH RDW Plt Count Lymph % (Auto) [place] % (Auto) Lymph # (Auto) [place] # (Auto) Seg Neutrophils % Seg Neuts % (Manual) Lymphocytes % (Manual) Nucleated RBC % Seg Neutrophils # Seg Neutrophils # Man Monocytes # (Manual) PT INR APTT D-Dimer Heparin Anti-Xa Level ABG pH ABG pO2 ABG HCO3 ABG O2 Saturation ABG Base Excess ABG Hemoglobin Oxyhemoglobin Sodium 148 H Potassium 2.8 L* Chloride Carbon Dioxide 31 H BUN 68 H Creatinine 1.5 H Glucose 191 H POC Glucose 194 H 140 H Hemoglobin A1c Lactic Acid Calcium 8.2 L Phosphorus Magnesium Ferritin AST ALT Alkaline Phosphatase Lactate Dehydrogenase Troponin T C-Reactive Protein Total Protein Albumin LDL Cholesterol Direct Urine Creatinine Urine Total Protein Salicylates Acetaminophen Crossmatch 11/09/21 11/09/21 11/09/21 04:51 04:51 04:51 WBC 27.6 H RBC 3.18 L Hgb 8.4 L Hct 26.6 L MCH 27 L RDW 15.3 H Plt Count Lymph % (Auto) [place] % (Auto) Lymph # (Auto) [place] # (Auto) Seg Neutrophils % Seg Neuts % (Manual) Lymphocytes % (Manual) Nucleated RBC % Seg Neutrophils # Seg Neutrophils # Man Monocytes # (Manual) PT INR APTT D-Dimer Heparin Anti-Xa Level 0.18 L ABG pH ABG pO2 ABG HCO3 ABG O2 Saturation ABG Base Excess ABG Hemoglobin Oxyhemoglobin Sodium 148 H Potassium 2.7 L* Chloride Carbon Dioxide BUN 59 H Creatinine 1.4 H Glucose 143 H POC Glucose Hemoglobin A1c Lactic Acid Calcium 8.3 L Phosphorus Magnesium Ferritin AST ALT Alkaline Phosphatase Lactate Dehydrogenase Troponin T C-Reactive Protein Total Protein Albumin LDL Cholesterol Direct Urine Creatinine Urine Total Protein Salicylates Acetaminophen Crossmatch 11/09/21 11/09/21 11/09/21 05:52 08:45 11:00 WBC RBC Hgb Hct MCH RDW Plt Count Lymph % (Auto) [place] % (Auto) Lymph # (Auto) [place] # (Auto) Seg Neutrophils % Seg Neuts % (Manual) Lymphocytes % (Manual) Nucleated RBC % Seg Neutrophils # Seg Neutrophils # Man Monocytes # (Manual) PT INR APTT D-Dimer Heparin Anti-Xa Level ABG pH ABG pO2 73.2 L ABG HCO3 33.8 H ABG O2 Saturation ABG Base Excess 8.7 H ABG Hemoglobin 8.5 L Oxyhemoglobin 94.1 L Sodium Potassium Chloride Carbon Dioxide BUN Creatinine Glucose POC Glucose 166 H 136 H Hemoglobin A1c Lactic Acid Calcium Phosphorus Magnesium Ferritin AST ALT Alkaline Phosphatase Lactate Dehydrogenase Troponin T C-Reactive Protein Total Protein Albumin LDL Cholesterol Direct Urine Creatinine Urine Total Protein Salicylates Acetaminophen Crossmatch 11/09/21 11/09/21 11/09/21 15:48 16:10 20:31 WBC RBC Hgb Hct MCH RDW Plt Count Lymph % (Auto) [place] % (Auto) Lymph # (Auto) [place] # (Auto) Seg Neutrophils % Seg Neuts % (Manual) Lymphocytes % (Manual) Nucleated RBC % Seg Neutrophils # Seg Neutrophils # Man Monocytes # (Manual) PT INR APTT D-Dimer Heparin Anti-Xa Level ABG pH ABG pO2 ABG HCO3 ABG O2 Saturation ABG Base Excess ABG Hemoglobin Oxyhemoglobin Sodium Potassium 2.8 L* Chloride Carbon Dioxide 31 H BUN 53 H Creatinine 1.3 H Glucose 208 H POC Glucose 203 H 166 H Hemoglobin A1c Lactic Acid Calcium 7.9 L Phosphorus Magnesium Ferritin AST ALT Alkaline Phosphatase Lactate Dehydrogenase Troponin T C-Reactive Protein Total Protein Albumin LDL Cholesterol Direct Urine Creatinine Urine Total Protein Salicylates Acetaminophen Crossmatch 11/09/21 11/09/21 11/09/21 21:30 23:16 Unknown WBC RBC Hgb Hct MCH RDW Plt Count Lymph % (Auto) [place] % (Auto) Lymph # (Auto) [place] # (Auto) Seg Neutrophils % Seg Neuts % (Manual) Lymphocytes % (Manual) Nucleated RBC % Seg Neutrophils # Seg Neutrophils # Man Monocytes # (Manual) PT INR APTT D-Dimer Heparin Anti-Xa Level 0.24 L ABG pH ABG pO2 ABG HCO3 ABG O2 Saturation ABG Base Excess ABG Hemoglobin Oxyhemoglobin Sodium Potassium Chloride Carbon Dioxide BUN 52 H Creatinine 1.4 H Glucose 185 H POC Glucose 172 H Hemoglobin A1c Lactic Acid Calcium 7.8 L Phosphorus Magnesium Ferritin AST ALT Alkaline Phosphatase Lactate Dehydrogenase Troponin T C-Reactive Protein Total Protein Albumin LDL Cholesterol Direct Urine Creatinine Urine Total Protein Salicylates Acetaminophen Crossmatch 11/10/21 11/10/21 11/10/21 02:00 04:17 04:17 WBC 24.5 H RBC 2.75 L Hgb 7.5 L Hct 22.9 L MCH 27 L RDW Plt Count Lymph % (Auto) [place] % (Auto) Lymph # (Auto) [place] # (Auto) Seg Neutrophils % Seg Neuts % (Manual) Lymphocytes % (Manual) Nucleated RBC % Seg Neutrophils # Seg Neutrophils # Man Monocytes # (Manual) PT INR APTT D-Dimer Heparin Anti-Xa Level 0.26 L ABG pH ABG pO2 ABG HCO3 ABG O2 Saturation ABG Base Excess ABG Hemoglobin Oxyhemoglobin Sodium Potassium 2.9 L* Chloride Carbon Dioxide 35 H BUN 48 H Creatinine Glucose 212 H POC Glucose Hemoglobin A1c Lactic Acid Calcium 8.1 L Phosphorus Magnesium Ferritin AST ALT Alkaline Phosphatase Lactate Dehydrogenase Troponin T C-Reactive Protein Total Protein Albumin LDL Cholesterol Direct Urine Creatinine Urine Total Protein Salicylates Acetaminophen Crossmatch 11/10/21 11/10/21 11/10/21 05:01 08:39 11:03 WBC RBC Hgb Hct MCH RDW Plt Count Lymph % (Auto) [place] % (Auto) Lymph # (Auto) [place] # (Auto) Seg Neutrophils % Seg Neuts % (Manual) Lymphocytes % (Manual) Nucleated RBC % Seg Neutrophils # Seg Neutrophils # Man Monocytes # (Manual) PT INR APTT D-Dimer Heparin Anti-Xa Level 0.12 L ABG pH ABG pO2 ABG HCO3 ABG O2 Saturation ABG Base Excess ABG Hemoglobin Oxyhemoglobin Sodium Potassium Chloride Carbon Dioxide BUN Creatinine Glucose POC Glucose 203 H 152 H Hemoglobin A1c Lactic Acid Calcium Phosphorus Magnesium Ferritin AST ALT Alkaline Phosphatase Lactate Dehydrogenase Troponin T C-Reactive Protein Total Protein Albumin LDL Cholesterol Direct Urine Creatinine Urine Total Protein Salicylates Acetaminophen Crossmatch 11/10/21 11/10/21 11/10/21 12:45 15:43 21:05 WBC RBC Hgb Hct MCH RDW Plt Count Lymph % (Auto) [place] % (Auto) Lymph # (Auto) [place] # (Auto) Seg Neutrophils % Seg Neuts % (Manual) Lymphocytes % (Manual) Nucleated RBC % Seg Neutrophils # Seg Neutrophils # Man Monocytes # (Manual) PT INR APTT D-Dimer Heparin Anti-Xa Level ABG pH ABG pO2 ABG HCO3 ABG O2 Saturation ABG Base Excess ABG Hemoglobin Oxyhemoglobin Sodium 146 H Potassium 3.3 L Chloride Carbon Dioxide 31 H BUN 43 H Creatinine Glucose 155 H POC Glucose 139 H 139 H Hemoglobin A1c Lactic Acid Calcium 8.3 L Phosphorus Magnesium Ferritin AST ALT Alkaline Phosphatase Lactate Dehydrogenase Troponin T C-Reactive Protein Total Protein Albumin LDL Cholesterol Direct Urine Creatinine Urine Total Protein Salicylates Acetaminophen Crossmatch 11/10/21 11/11/21 11/11/21 23:25 03:49 03:49 WBC 22.1 H RBC 2.69 L Hgb 7.2 L Hct 22.7 L MCH 27 L RDW Plt Count Lymph % (Auto) [place] % (Auto) Lymph # (Auto) [place] # (Auto) Seg Neutrophils % Seg Neuts % (Manual) Lymphocytes % (Manual) Nucleated RBC % Seg Neutrophils # Seg Neutrophils # Man Monocytes # (Manual) PT INR APTT D-Dimer Heparin Anti-Xa Level ABG pH ABG pO2 ABG HCO3 ABG O2 Saturation ABG Base Excess ABG Hemoglobin Oxyhemoglobin Sodium Potassium Chloride Carbon Dioxide 32 H BUN 44 H Creatinine 1.3 H Glucose 173 H POC Glucose 146 H Hemoglobin A1c Lactic Acid Calcium Phosphorus Magnesium Ferritin AST ALT Alkaline Phosphatase Lactate Dehydrogenase Troponin T C-Reactive Protein Total Protein Albumin LDL Cholesterol Direct Urine Creatinine Urine Total Protein Salicylates Acetaminophen Crossmatch 11/11/21 11/11/21 11/11/21 05:03 10:50 11:32 WBC RBC Hgb Hct MCH RDW Plt Count Lymph % (Auto) [place] % (Auto) Lymph # (Auto) [place] # (Auto) Seg Neutrophils % Seg Neuts % (Manual) Lymphocytes % (Manual) Nucleated RBC % Seg Neutrophils # Seg Neutrophils # Man Monocytes # (Manual) PT INR APTT D-Dimer Heparin Anti-Xa Level ABG pH ABG pO2 ABG HCO3 ABG O2 Saturation ABG Base Excess ABG Hemoglobin Oxyhemoglobin Sodium Potassium Chloride Carbon Dioxide BUN Creatinine Glucose POC Glucose 152 H 129 H 133 H Hemoglobin A1c Lactic Acid Calcium Phosphorus Magnesium Ferritin AST ALT Alkaline Phosphatase Lactate Dehydrogenase Troponin T C-Reactive Protein Total Protein Albumin LDL Cholesterol Direct Urine Creatinine Urine Total Protein Salicylates Acetaminophen Crossmatch 11/11/21 11/11/21 11/11/21 13:53 16:31 17:13 WBC RBC Hgb Hct MCH RDW Plt Count Lymph % (Auto) [place] % (Auto) Lymph # (Auto) [place] # (Auto) Seg Neutrophils % Seg Neuts % (Manual) Lymphocytes % (Manual) Nucleated RBC % Seg Neutrophils # Seg Neutrophils # Man Monocytes # (Manual) PT INR APTT D-Dimer Heparin Anti-Xa Level ABG pH 7.475 H ABG pO2 64.1 L ABG HCO3 32.4 H ABG O2 Saturation ABG Base Excess 8.0 H ABG Hemoglobin 7.6 L Oxyhemoglobin 94.0 L Sodium Potassium Chloride Carbon Dioxide BUN Creatinine Glucose POC Glucose 116 H 125 H Hemoglobin A1c Lactic Acid Calcium Phosphorus Magnesium Ferritin AST ALT Alkaline Phosphatase Lactate Dehydrogenase Troponin T C-Reactive Protein Total Protein Albumin LDL Cholesterol Direct Urine Creatinine Urine Total Protein Salicylates Acetaminophen Crossmatch 11/11/21 11/11/21 11/12/21 20:40 23:35 03:30 WBC 17.7 H RBC 2.37 L Hgb 6.3 L Hct 20.0 L MCH 27 L RDW 15.5 H Plt Count Lymph % (Auto) [place] % (Auto) Lymph # (Auto) [place] # (Auto) Seg Neutrophils % Seg Neuts % (Manual) Lymphocytes % (Manual) Nucleated RBC % Seg Neutrophils # Seg Neutrophils # Man Monocytes # (Manual) PT INR APTT D-Dimer Heparin Anti-Xa Level 0.26 L ABG pH ABG pO2 ABG HCO3 ABG O2 Saturation ABG Base Excess ABG Hemoglobin Oxyhemoglobin Sodium Potassium Chloride Carbon Dioxide BUN Creatinine Glucose POC Glucose 118 H Hemoglobin A1c Lactic Acid Calcium Phosphorus Magnesium Ferritin AST ALT Alkaline Phosphatase Lactate Dehydrogenase Troponin T C-Reactive Protein Total Protein Albumin LDL Cholesterol Direct Urine Creatinine Urine Total Protein Salicylates Acetaminophen Crossmatch 11/12/21 11/12/21 11/12/21 03:30 04:15 11:53 WBC RBC Hgb Hct MCH RDW Plt Count Lymph % (Auto) [place] % (Auto) Lymph # (Auto) [place] # (Auto) Seg Neutrophils % Seg Neuts % (Manual) Lymphocytes % (Manual) Nucleated RBC % Seg Neutrophils # Seg Neutrophils # Man Monocytes # (Manual) PT INR APTT D-Dimer Heparin Anti-Xa Level ABG pH ABG pO2 ABG HCO3 ABG O2 Saturation ABG Base Excess ABG Hemoglobin Oxyhemoglobin Sodium Potassium Chloride Carbon Dioxide 33 H BUN 38 H Creatinine 1.3 H Glucose 102 H POC Glucose 62 L Hemoglobin A1c Lactic Acid Calcium 8.2 L Phosphorus Magnesium Ferritin AST ALT Alkaline Phosphatase Lactate Dehydrogenase Troponin T C-Reactive Protein Total Protein Albumin LDL Cholesterol Direct Urine Creatinine Urine Total Protein Salicylates Acetaminophen Crossmatch See Detail 11/12/21 11/12/21 11/12/21 17:20 19:14 23:11 WBC RBC Hgb 6.2 L Hct 19.5 L* MCH RDW Plt Count Lymph % (Auto) [place] % (Auto) Lymph # (Auto) [place] # (Auto) Seg Neutrophils % Seg Neuts % (Manual) Lymphocytes % (Manual) Nucleated RBC % Seg Neutrophils # Seg Neutrophils # Man Monocytes # (Manual) PT INR APTT D-Dimer Heparin Anti-Xa Level ABG pH ABG pO2 ABG HCO3 ABG O2 Saturation ABG Base Excess ABG Hemoglobin Oxyhemoglobin Sodium Potassium Chloride Carbon Dioxide BUN Creatinine Glucose POC Glucose 115 H 131 H Hemoglobin A1c Lactic Acid Calcium Phosphorus Magnesium Ferritin AST ALT Alkaline Phosphatase Lactate Dehydrogenase Troponin T C-Reactive Protein Total Protein Albumin LDL Cholesterol Direct Urine Creatinine Urine Total Protein Salicylates Acetaminophen Crossmatch 11/13/21 11/13/21 11/13/21 00:13 04:17 04:17 WBC 23.8 H RBC 2.84 L Hgb 7.4 L 7.8 L Hct 23.3 L 24.9 L MCH 27 L RDW 15.4 H Plt Count Lymph % (Auto) [place] % (Auto) Lymph # (Auto) [place] # (Auto) Seg Neutrophils % Seg Neuts % (Manual) Lymphocytes % (Manual) Nucleated RBC % Seg Neutrophils # Seg Neutrophils # Man Monocytes # (Manual) PT INR APTT D-Dimer Heparin Anti-Xa Level ABG pH ABG pO2 ABG HCO3 ABG O2 Saturation ABG Base Excess ABG Hemoglobin Oxyhemoglobin Sodium 146 H Potassium Chloride Carbon Dioxide BUN 44 H Creatinine 1.6 H Glucose 144 H POC Glucose Hemoglobin A1c Lactic Acid Calcium 7.9 L Phosphorus 5.10 H D Magnesium Ferritin AST ALT Alkaline Phosphatase Lactate Dehydrogenase Troponin T C-Reactive Protein Total Protein Albumin LDL Cholesterol Direct Urine Creatinine Urine Total Protein Salicylates Acetaminophen Crossmatch 11/13/21 11/13/21 11/13/21 05:52 10:54 15:57 WBC RBC Hgb Hct MCH RDW Plt Count Lymph % (Auto) [place] % (Auto) Lymph # (Auto) [place] # (Auto) Seg Neutrophils % Seg Neuts % (Manual) Lymphocytes % (Manual) Nucleated RBC % Seg Neutrophils # Seg Neutrophils # Man Monocytes # (Manual) PT INR APTT D-Dimer Heparin Anti-Xa Level ABG pH ABG pO2 ABG HCO3 ABG O2 Saturation ABG Base Excess ABG Hemoglobin Oxyhemoglobin Sodium Potassium Chloride Carbon Dioxide BUN Creatinine Glucose POC Glucose 123 H 147 H 207 H Hemoglobin A1c Lactic Acid Calcium Phosphorus Magnesium Ferritin AST ALT Alkaline Phosphatase Lactate Dehydrogenase Troponin T C-Reactive Protein Total Protein Albumin LDL Cholesterol Direct Urine Creatinine Urine Total Protein Salicylates Acetaminophen Crossmatch 11/13/21 11/13/21 11/14/21 16:01 23:18 04:55 WBC 23.9 H RBC 2.86 L Hgb 6.5 L 8.3 L Hct 20.3 L 24.5 L MCH RDW Plt Count Lymph % (Auto) [place] % (Auto) Lymph # (Auto) [place] # (Auto) Seg Neutrophils % Seg Neuts % (Manual) Lymphocytes % (Manual) Nucleated RBC % Seg Neutrophils # Seg Neutrophils # Man Monocytes # (Manual) PT INR APTT D-Dimer Heparin Anti-Xa Level ABG pH ABG pO2 ABG HCO3 ABG O2 Saturation ABG Base Excess ABG Hemoglobin Oxyhemoglobin Sodium Potassium Chloride Carbon Dioxide BUN Creatinine Glucose POC Glucose 209 H Hemoglobin A1c Lactic Acid Calcium Phosphorus Magnesium Ferritin AST ALT Alkaline Phosphatase Lactate Dehydrogenase Troponin T C-Reactive Protein Total Protein Albumin LDL Cholesterol Direct Urine Creatinine Urine Total Protein Salicylates Acetaminophen Crossmatch 11/14/21 11/14/21 11/14/21 04:55 05:09 11:35 WBC RBC Hgb Hct MCH RDW Plt Count Lymph % (Auto) [place] % (Auto) Lymph # (Auto) [place] # (Auto) Seg Neutrophils % Seg Neuts % (Manual) Lymphocytes % (Manual) Nucleated RBC % Seg Neutrophils # Seg Neutrophils # Man Monocytes # (Manual) PT INR APTT D-Dimer Heparin Anti-Xa Level ABG pH ABG pO2 ABG HCO3 ABG O2 Saturation ABG Base Excess ABG Hemoglobin Oxyhemoglobin Sodium 148 H Potassium Chloride 109.0 H Carbon Dioxide BUN 42 H Creatinine 1.6 H Glucose 184 H POC Glucose 169 H 154 H Hemoglobin A1c Lactic Acid Calcium 8.0 L Phosphorus Magnesium Ferritin AST ALT Alkaline Phosphatase Lactate Dehydrogenase Troponin T C-Reactive Protein Total Protein Albumin LDL Cholesterol Direct Urine Creatinine Urine Total Protein Salicylates Acetaminophen Crossmatch 11/14/21 11/14/21 11/15/21 16:57 23:11 04:36 WBC RBC Hgb Hct MCH RDW Plt Count Lymph % (Auto) [place] % (Auto) Lymph # (Auto) [place] # (Auto) Seg Neutrophils % Seg Neuts % (Manual) Lymphocytes % (Manual) Nucleated RBC % Seg Neutrophils # Seg Neutrophils # Man Monocytes # (Manual) PT INR APTT D-Dimer Heparin Anti-Xa Level ABG pH ABG pO2 ABG HCO3 ABG O2 Saturation ABG Base Excess ABG Hemoglobin Oxyhemoglobin Sodium 151 H Potassium Chloride 111.2 H Carbon Dioxide BUN 36 H Creatinine 1.3 H Glucose 136 H POC Glucose 124 H 118 H Hemoglobin A1c Lactic Acid Calcium 8.1 L Phosphorus Magnesium Ferritin AST ALT Alkaline Phosphatase Lactate Dehydrogenase Troponin T C-Reactive Protein Total Protein Albumin LDL Cholesterol Direct Urine Creatinine Urine Total Protein Salicylates Acetaminophen Crossmatch 11/15/21 11/15/21 11/16/21 11:18 21:49 00:15 WBC RBC Hgb Hct MCH RDW Plt Count Lymph % (Auto) [place] % (Auto) Lymph # (Auto) [place] # (Auto) Seg Neutrophils % Seg Neuts % (Manual) Lymphocytes % (Manual) Nucleated RBC % Seg Neutrophils # Seg Neutrophils # Man Monocytes # (Manual) PT INR APTT D-Dimer Heparin Anti-Xa Level ABG pH ABG pO2 ABG HCO3 ABG O2 Saturation ABG Base Excess ABG Hemoglobin Oxyhemoglobin Sodium Potassium Chloride Carbon Dioxide BUN Creatinine Glucose POC Glucose 154 H 154 H 146 H Hemoglobin A1c Lactic Acid Calcium Phosphorus Magnesium Ferritin AST ALT Alkaline Phosphatase Lactate Dehydrogenase Troponin T C-Reactive Protein Total Protein Albumin LDL Cholesterol Direct Urine Creatinine Urine Total Protein Salicylates Acetaminophen Crossmatch 11/16/21 11/16/21 11/16/21 05:11 05:11 05:37 WBC 18.2 H RBC 2.92 L Hgb 8.3 L Hct 26.1 L MCH RDW 15.8 H Plt Count Lymph % (Auto) 6.3 L [place] % (Auto) 10.2 H Lymph # (Auto) [place] # (Auto) 1.9 H Seg Neutrophils % 81.7 H Seg Neuts % (Manual) Lymphocytes % (Manual) Nucleated RBC % Seg Neutrophils # 14.9 H Seg Neutrophils # Man Monocytes # (Manual) PT INR APTT D-Dimer Heparin Anti-Xa Level ABG pH ABG pO2 ABG HCO3 ABG O2 Saturation ABG Base Excess ABG Hemoglobin Oxyhemoglobin Sodium 146 H Potassium Chloride 108.0 H Carbon Dioxide BUN 25 H Creatinine Glucose 123 H POC Glucose 109 H Hemoglobin A1c Lactic Acid Calcium 7.8 L Phosphorus Magnesium Ferritin AST ALT Alkaline Phosphatase Lactate Dehydrogenase Troponin T C-Reactive Protein Total Protein Albumin LDL Cholesterol Direct Urine Creatinine Urine Total Protein Salicylates Acetaminophen Crossmatch 11/16/21 11/16/21 11/17/21 11:22 23:55 04:33 WBC RBC Hgb Hct MCH RDW Plt Count Lymph % (Auto) [place] % (Auto) Lymph # (Auto) [place] # (Auto) Seg Neutrophils % Seg Neuts % (Manual) Lymphocytes % (Manual) Nucleated RBC % Seg Neutrophils # Seg Neutrophils # Man Monocytes # (Manual) PT INR APTT D-Dimer Heparin Anti-Xa Level ABG pH ABG pO2 ABG HCO3 ABG O2 Saturation ABG Base Excess ABG Hemoglobin Oxyhemoglobin Sodium Potassium Chloride Carbon Dioxide BUN 20 H Creatinine Glucose POC Glucose 136 H 113 H Hemoglobin A1c Lactic Acid Calcium 7.5 L Phosphorus Magnesium Ferritin AST ALT Alkaline Phosphatase Lactate Dehydrogenase Troponin T C-Reactive Protein Total Protein Albumin LDL Cholesterol Direct Urine Creatinine Urine Total Protein Salicylates Acetaminophen Crossmatch 11/17/21 11/18/21 11/18/21 23:22 04:53 04:53 WBC 13.0 H RBC 2.99 L Hgb 8.5 L Hct 26.4 L MCH RDW Plt Count Lymph % (Auto) 9.5 L [place] % (Auto) 9.8 H Lymph # (Auto) [place] # (Auto) 1.3 H Seg Neutrophils % 78.3 H Seg Neuts % (Manual) Lymphocytes % (Manual) Nucleated RBC % Seg Neutrophils # 10.2 H Seg Neutrophils # Man Monocytes # (Manual) PT INR APTT D-Dimer Heparin Anti-Xa Level ABG pH ABG pO2 ABG HCO3 ABG O2 Saturation ABG Base Excess ABG Hemoglobin Oxyhemoglobin Sodium Potassium Chloride Carbon Dioxide BUN 18 H Creatinine Glucose 106 H POC Glucose 112 H Hemoglobin A1c Lactic Acid Calcium 8.1 L Phosphorus Magnesium Ferritin AST ALT Alkaline Phosphatase Lactate Dehydrogenase Troponin T C-Reactive Protein Total Protein Albumin LDL Cholesterol Direct Urine Creatinine Urine Total Protein Salicylates Acetaminophen Crossmatch 11/18/21 11/18/21 11/19/21 11:35 17:42 14:38 WBC RBC Hgb Hct MCH RDW Plt Count Lymph % (Auto) [place] % (Auto) Lymph # (Auto) [place] # (Auto) Seg Neutrophils % Seg Neuts % (Manual) Lymphocytes % (Manual) Nucleated RBC % Seg Neutrophils # Seg Neutrophils # Man Monocytes # (Manual) PT INR APTT D-Dimer Heparin Anti-Xa Level ABG pH ABG pO2 ABG HCO3 ABG O2 Saturation ABG Base Excess ABG Hemoglobin Oxyhemoglobin Sodium Potassium Chloride 97.5 L Carbon Dioxide 31 H BUN Creatinine Glucose 146 H POC Glucose 143 H 132 H Hemoglobin A1c Lactic Acid Calcium Phosphorus Magnesium 1.60 L Ferritin AST ALT Alkaline Phosphatase Lactate Dehydrogenase Troponin T C-Reactive Protein Total Protein Albumin LDL Cholesterol Direct Urine Creatinine Urine Total Protein Salicylates Acetaminophen Crossmatch 11/19/21 16:24 WBC RBC Hgb Hct MCH RDW Plt Count Lymph % (Auto) [place] % (Auto) Lymph # (Auto) [place] # (Auto) Seg Neutrophils % Seg Neuts % (Manual) Lymphocytes % (Manual) Nucleated RBC % Seg Neutrophils # Seg Neutrophils # Man Monocytes # (Manual) PT INR APTT D-Dimer Heparin Anti-Xa Level ABG pH ABG pO2 ABG HCO3 ABG O2 Saturation ABG Base Excess ABG Hemoglobin Oxyhemoglobin Sodium Potassium Chloride Carbon Dioxide BUN Creatinine Glucose POC Glucose 129 H Hemoglobin A1c Lactic Acid Calcium Phosphorus Magnesium Ferritin AST ALT Alkaline Phosphatase Lactate Dehydrogenase Troponin T C-Reactive Protein Total Protein Albumin LDL Cholesterol Direct Urine Creatinine Urine Total Protein Salicylates Acetaminophen Crossmatch Chest x-ray: report reviewed, image reviewed Additional Studies: XR chest 1V ap 11/18/21 INDICATION / CLINICAL INFORMATION: interstitial edema. COMPARISON: 11/16/2021 FINDINGS: SUPPORT DEVICES: None. HEART /PULMONARY VASCULATURE: Unchanged. LUNGS / PLEURA: Low lung volumes remain. There is improvement in interstitial edema. No pneumothorax. IMPRESSION: Improving interstitial edema. Allied health notes reviewed: nursing
[2021-11-20] MEDS: INSULIN LISPRO 100 UNIT/ML SUB-Q SCH ×4 (00:28→17:15)
[2021-11-20] MEDS ORDERED: cloNIDine 0.1 MG TAB PO STA (05:21)
[2021-11-20 08:43] LABS: Hematocrit 26.7 % (30.3-42.9); Hemoglobin 8.6 gm/dl (10.1-14.3); Mean Corpuscular HGB Conc 32 % (30-34); Mean Corpuscular Volume 89 fl (79-97); Platelet Count 331 K/mm3 (140-440); Red Blood Count 3.01 M/mm3 (3.65-5.03); Red Cell Distribution Width 15.4 % (13.2-15.2)
[2021-11-20 08:47] LABS: BUN/Creatinine Ratio 12; Blood Urea Nitrogen 12 mg/dL (7-17); Calcium 8.4 mg/dL (8.4-10.2); Hemolysis Index 2
[2021-11-20] MEDS: FUROSEMIDE 20 MG/2 ML INJ IV SCH ×2 (09:40→21:59)
[2021-11-20] MEDS: LOSARTAN 25 MG TAB PO SCH ×3 (09:40→22:00)
[2021-11-20] MEDS: METOPROLOL TARTRATE 100 MG TAB PO SCH ×2 (09:41→22:00)
[2021-11-20] MEDS: FAMOTIDINE 10 MG TAB PO SCH ×2 (09:41→22:00)
[2021-11-20] MEDS: DOCUSATE SODIUM 100 MG CAP PO SCH ×3 (09:41→22:01)
[2021-11-20] MEDS: SPIRONOLACTONE 25 MG TAB PO SCH (09:41)
[2021-11-20] MEDS: SENNOSIDES/DOCUSATE SODIUM 8.6/50 MG TAB PO SCH ×3 (09:41→22:00)
[2021-11-20] MEDS: POLYETHYLENE GLYCOL 3350 17 GM POWDER PO PRN (13:07)
[2021-11-20] MEDS: hydrALAZINE 25 MG TAB PO SCH ×2 (13:07→22:00)
--- NOTE | 2021-11-20 17:35 | Progress Note ---
Assessment and Plan 66 YO Female with Obesity presents to ED for evaluation. Patient is intubated and on ventilatory support . Patient was attending [facility] services when the patient collapsed and lost consciousness. Witnesses began CPR. EMS was notified and upon arrival the patient was found to be in distress without perfusing cardiac rhythm. Patient initiated on ACLS protocol and subsequently intubated in the field and subsequent transported to [facility] for further care and evaluation of the aforementioned symptoms. The patient regained spontaneous ci rculation during transport. Patient seen and evaluated upon arrival and found to have acute hypoxemic respiratory failure, septic shock suspected secondary to aspiration pneumonia, metabolic acidosis, toxic metabolic encephalopathy, shock liver, and cardiac arrest with return of perfusing cardiac rhythm after initiation of ACLS protocol. Patient initiated on sepsis protocol as well as pneumonia protocol. Patient admitted to ICU. No reports of fever, chills, chest pain, palpitation, productive cough, skin rash, recent contact, known exposure to COVID-19. Patient has history of diabetes and hypertension. According to the chart review, patient has no history of smoking, alcohol or drug abuse. Patient eventually extubated. Patient transfered to Telemetry. Patient presently on 2 litres O2. O2 saturation 99%. BIPAP 18/8, Rate 14, FIO2 30% stand by in the room. Patient Obese , awake. No acute respiratory distress. Patient afebrile. Has mild leukocytosis. Blood pressure 155/93, pulse 76, Respirations 18. Chest xray done 11/18/21 reported Improving interstitial edema. Patient presently on Lasix and famotidine. - Patient Problems (1) Acute hypoxemic respiratory failure Current Visit: Yes Status: Acute Plan to address problem: Patient presently on 2 litres O2. O2 saturation 99%. BIPAP 18/8, rate 14, FIO2 30% stand by in the room. Recommend DVT prophylaxis, SCDs Continue famotidine. (2) Acute metabolic encephalopathy Current Visit: Yes Status: Acute Plan to address problem: Management as per primary care. (3) Atrial fibrillation and flutter Current Visit: Yes Status: Acute Plan to address problem: Management as per cardiology. (4) Acute kidney injury Current Visit: Yes Status: Acute Plan to address problem: Management as per nephrology. Subjective Date of service: 11/20/21 Principal diagnosis: AHRF; Cardiac arrest; R. pneumothorax; pneumonia; AMS; DVT's; SIERRA; Obesity Interval history: 66 YO Female with Obesity presents to ED for evaluation. Patient is intubated and on ventilatory support . Patient was attending [facility] services when the patient collapsed and lost consciousness. Witnesses began CPR. EMS was notified and upon arrival the patient was found to be in distress without perfusing cardiac rhythm. Patient initiated on ACLS protocol and subsequently intubated in the field and subsequent transported to [facility] for further care and evaluation of the aforementioned symptoms. The patient regained spontaneous circulation during transport. Patient seen and evaluated upon arrival and found to have acute hypoxemic respiratory failure, septic shock suspected secondary to aspiration pneumonia, metabolic acidosis, toxic metabolic encephalopathy, shock liver, and cardiac arrest with return of perfusing cardiac rhythm after initiation of ACLS protocol. Patient initiated on sepsis protocol as well as pneumonia protocol. Patient admitted to ICU. No reports of fever, chills, chest pain, palpitation, productive cough, skin rash, recent contact, known exp osure to COVID-19. Patient has history of diabetes and hypertension. According to the chart review, patient has no history of smoking, alcohol or drug abuse. Patient eventually extubated. Patient transfered to Telemetry. Patient presently on 2 litres O2. O2 saturation 99%. BIPAP 18/8, Rate 14, FIO2 30% stand by in the room. Patient Obese , awake. No acute respiratory distress. Patient afebrile. Has mild leukocytosis. Blood pressure 155/93, pulse 76, Respirations 18. Chest xray done 11/18/21 reported Improving interstitial edema. Patient presently on Lasix and famotidine. Objective Vital Signs - 12hr 11/20/21 11/20/21 11/20/21 08:15 08:25 09:10 Temperature 98.5 F Pulse Rate 72 Pulse Rate [ 77 From Monitor] Respiratory 18 22 Rate Blood Pressure 165/90 Blood Pressure [Left] O2 Sat by Pulse 97 94 99 Oximetry 11/20/21 11/20/21 11/20/21 09:29 09:40 09:41 Temperature Pulse Rate 72 77 77 Pulse Rate [ From Monitor] Respiratory Rate Blood Pressure 165/90 165/90 Blood Pressure [Left] O2 Sat by Pulse Oximetry 11/20/21 11/20/21 11/20/21 09:48 13:07 13:17 Temperature Pulse Rate 66 66 Pulse Rate [ From Monitor] Respiratory 16 16 Rate Blood Pressure 165/90 Blood Pressure 158/93 [Left] O2 Sat by Pulse 95 Oximetry 11/20/21 16:25 Temperature 98.9 F Pulse Rate 69 Pulse Rate [ From Monitor] Respiratory 18 Rate Blood Pressure 164/91 Blood Pressure [Left] O2 Sat by Pulse 96 Oximetry Constitutional: no acute distress, alert Eyes: non-icteric, other (+ mild periorbital phymosis) ENT: oropharynx moist Neck: supple, no lymphadenopathy, no JVD, other (large circumference) Effort: mildly labored Ascultation: Bilateral: diminished breath sounds, rhonchi (scant) Percussion: Bilateral: not dull Cardiovascular: irregular rhythm, other (no R/M) Gastrointestinal: normoactive bowel sounds, soft, non-tender, other (obese) Integumentary: normal, other (Left flank ecchymosis with induration) Extremities: no cyanosis, pulses normal, no ischemia or petechiae, edema (2+) Neurologic: non-focal exam (grossly), pupils equal and round, other (Patient sleeping at this time.) Psychiatric: other (Unable to assess, Patient sleeping at this time.) CBC and BMP: 11/20/21 07:42 11/20/21 07:42 ABG, PT/INR, D-dimer: ABG ABG pH 7.475 pH Units (7.350-7.450) H 11/11/21 13:53 ABG pCO2 45.0 mm Hg 11/11/21 13:53 ABG pO2 64.1 mm Hg (80.0-90.0) L 11/11/21 13:53 ABG O2 Saturation 96.3 % (95.0-99.0) 11/11/21 13:53 PT/INR, D-dimer PT 17.2 Sec. (12.2-14.9) H 10/30/21 16:30 INR 1.27 (0.87-1.13) H 10/30/21 16:30 D-Dimer > 05778 ng/mlDDU (0-234) H 10/30/21 Unknown Abnormal lab findings: Abnormal Labs 10/29/21 10/29/21 10/29/21 15:10 15:10 15:10 WBC 27.8 H RBC Hgb Hct MCH 27 L RDW Plt Count Lymph % (Auto) [place] % (Auto) Lymph # (Auto) [place] # (Auto) Seg Neutrophils % Seg Neuts % (Manual) 78.0 H Lymphocytes % (Manual) 10.0 L Nucleated RBC % Seg Neutrophils # Seg Neutrophils # Man 21.7 H Monocytes # (Manual) 1.4 H PT INR APTT D-Dimer Heparin Anti-Xa Level ABG pH ABG pO2 ABG HCO3 ABG O2 Saturation ABG Base Excess ABG Hemoglobin Oxyhemoglobin Sodium Potassium Chloride Carbon Dioxide BUN Creatinine Glucose POC Glucose Hemoglobin A1c Lactic Acid 6.80 H* Calcium Phosphorus Magnesium Ferritin AST ALT Alkaline Phosphatase Lactate Dehydrogenase Troponin T 0.089 H C-Reactive Protein Total Protein Albumin LDL Cholesterol Direct Urine Creatinine Urine Total Protein Salicylates Acetaminophen Crossmatch 10/29/21 10/29/21 10/29/21 15:10 15:10 15:10 WBC RBC Hgb Hct MCH RDW Plt Count Lymph % (Auto) [place] % (Auto) Lymph # (Auto) [place] # (Auto) Seg Neutrophils % Seg Neuts % (Manual) Lymphocytes % (Manual) Nucleated RBC % Seg Neutrophils # Seg Neutrophils # Man Monocytes # (Manual) PT INR APTT D-Dimer Heparin Anti-Xa Level ABG pH ABG pO2 ABG HCO3 ABG O2 Saturation ABG Base Excess ABG Hemoglobin Oxyhemoglobin Sodium 136 L Potassium 2.8 L* Chloride 93.4 L Carbon Dioxide 20 L BUN Creatinine Glucose 330 H POC Glucose Hemoglobin A1c Lactic Acid Calcium Phosphorus Magnesium Ferritin AST 1013 H ALT 1289 H Alkaline Phosphatase 246 H Lactate Dehydrogenase Troponin T C-Reactive Protein Total Protein Albumin LDL Cholesterol Direct Urine Creatinine Urine Total Protein Salicylates < 0.3 L Acetaminophen 5.0 L Crossmatch 10/29/21 10/29/21 10/29/21 15:11 16:01 19:29 WBC RBC Hgb Hct MCH RDW Plt Count Lymph % (Auto) [place] % (Auto) Lymph # (Auto) [place] # (Auto) Seg Neutrophils % Seg Neuts % (Manual) Lymphocytes % (Manual) Nucleated RBC % Seg Neutrophils # Seg Neutrophils # Man Monocytes # (Manual) PT INR APTT D-Dimer Heparin Anti-Xa Level ABG pH 7.307 L ABG pO2 64.1 L ABG HCO3 ABG O2 Saturation 90.8 L ABG Base Excess -2.9 L ABG Hemoglobin Oxyhemoglobin 89.3 L Sodium Potassium Chloride Carbon Dioxide BUN Creatinine Glucose POC Glucose Hemoglobin A1c Lactic Acid 2.60 H* Calcium Phosphorus Magnesium 2.90 H Ferritin AST ALT Alkaline Phosphatase Lactate Dehydrogenase Troponin T C-Reactive Protein Total Protein Albumin LDL Cholesterol Direct Urine Creatinine Urine Total Protein Salicylates Acetaminophen Crossmatch 10/29/21 10/29/21 10/30/21 19:40 22:34 04:30 WBC 16.2 H RBC Hgb Hct MCH 26 L RDW 15.5 H Plt Count Lymph % (Auto) 6.2 L [place] % (Auto) Lymph # (Auto) 1.0 L [place] # (Auto) 0.9 H Seg Neutrophils % 88.1 H Seg Neuts % (Manual) Lymphocytes % (Manual) Nucleated RBC % Seg Neutrophils # 14.2 H Seg Neutrophils # Man Monocytes # (Manual) PT INR APTT D-Dimer Heparin Anti-Xa Level ABG pH ABG pO2 ABG HCO3 ABG O2 Saturation ABG Base Excess ABG Hemoglobin Oxyhemoglobin Sodium Potassium Chloride Carbon Dioxide BUN Creatinine Glucose POC Glucose Hemoglobin A1c Lactic Acid Calcium Phosphorus Magnesium Ferritin AST ALT Alkaline Phosphatase Lactate Dehydrogenase Troponin T 1.950 H* D 1.150 H* D C-Reactive Protein Total Protein Albumin LDL Cholesterol Direct 43 L Urine Creatinine Urine Total Protein Salicylates Acetaminophen Crossmatch 10/30/21 10/30/21 10/30/21 04:30 04:35 05:45 WBC RBC Hgb Hct MCH RDW Plt Count Lymph % (Auto) [place] % (Auto) Lymph # (Auto) [place] # (Auto) Seg Neutrophils % Seg Neuts % (Manual) Lymphocytes % (Manual) Nucleated RBC % Seg Neutrophils # Seg Neutrophils # Man Monocytes # (Manual) PT INR APTT D-Dimer Heparin Anti-Xa Level ABG pH ABG pO2 69.5 L ABG HCO3 ABG O2 Saturation ABG Base Excess -2.7 L ABG Hemoglobin Oxyhemoglobin 94.7 L Sodium Potassium Chloride Carbon Dioxide 21 L BUN Creatinine Glucose 159 H POC Glucose 151 H Hemoglobin A1c Lactic Acid Calcium 7.9 L D Phosphorus Magnesium Ferritin AST 461 H ALT 686 H Alkaline Phosphatase 130 H Lactate Dehydrogenase Troponin T C-Reactive Protein Total Protein 5.6 L D Albumin 3.2 L LDL Cholesterol Direct Urine Creatinine Urine Total Protein Salicylates Acetaminophen Crossmatch 10/30/21 10/30/21 10/30/21 11:24 15:59 16:30 WBC RBC Hgb Hct MCH RDW Plt Count Lymph % (Auto) [place] % (Auto) Lymph # (Auto) [place] # (Auto) Seg Neutrophils % Seg Neuts % (Manual) Lymphocytes % (Manual) Nucleated RBC % Seg Neutrophils # Seg Neutrophils # Man Monocytes # (Manual) PT 17.2 H INR 1.27 H APTT 44.4 H D-Dimer Heparin Anti-Xa Level ABG pH ABG pO2 ABG HCO3 ABG O2 Saturation ABG Base Excess ABG Hemoglobin Oxyhemoglobin Sodium Potassium Chloride Carbon Dioxide BUN Creatinine Glucose POC Glucose 153 H 109 H Hemoglobin A1c Lactic Acid Calcium Phosphorus Magnesium Ferritin AST ALT Alkaline Phosphatase Lactate Dehydrogenase Troponin T C-Reactive Protein Total Protein Albumin LDL Cholesterol Direct Urine Creatinine Urine Total Protein Salicylates Acetaminophen Crossmatch 10/30/21 10/30/21 10/30/21 23:00 Unknown Unknown WBC RBC Hgb Hct MCH RDW Plt Count Lymph % (Auto) [place] % (Auto) Lymph # (Auto) [place] # (Auto) Seg Neutrophils % Seg Neuts % (Manual) Lymphocytes % (Manual) Nucleated RBC % Seg Neutrophils # Seg Neutrophils # Man Monocytes # (Manual) PT INR APTT D-Dimer > 45517 H Heparin Anti-Xa Level 0.82 H ABG pH ABG pO2 ABG HCO3 ABG O2 Saturation ABG Base Excess ABG Hemoglobin Oxyhemoglobin Sodium Potassium Chloride Carbon Dioxide BUN Creatinine Glucose POC Glucose Hemoglobin A1c Lactic Acid Calcium Phosphorus Magnesium Ferritin 208.4 H AST ALT Alkaline Phosphatase Lactate Dehydrogenase Troponin T C-Reactive Protein Total Protein Albumin LDL Cholesterol Direct Urine Creatinine Urine Total Protein Salicylates Acetaminophen Crossmatch 10/30/21 10/31/21 10/31/21 Unknown 04:30 04:30 WBC 14.4 H RBC Hgb Hct MCH 26 L RDW Plt Count Lymph % (Auto) [place] % (Auto) Lymph # (Auto) [place] # (Auto) Seg Neutrophils % Seg Neuts % (Manual) Lymphocytes % (Manual) Nucleated RBC % Seg Neutrophils # Seg Neutrophils # Man Monocytes # (Manual) PT INR APTT D-Dimer Heparin Anti-Xa Level ABG pH ABG pO2 ABG HCO3 ABG O2 Saturation ABG Base Excess ABG Hemoglobin Oxyhemoglobin Sodium Potassium 3.5 L Chloride 107.5 H Carbon Dioxide 20 L BUN 28 H Creatinine 1.7 H Glucose 113 H POC Glucose Hemoglobin A1c Lactic Acid Calcium 7.9 L Phosphorus Magnesium Ferritin AST ALT Alkaline Phosphatase Lactate Dehydrogenase 469 H Troponin T C-Reactive Protein 13.40 H Total Protein Albumin LDL Cholesterol Direct Urine Creatinine Urine Total Protein Salicylates Acetaminophen Crossmatch 10/31/21 10/31/21 10/31/21 04:30 05:11 15:30 WBC RBC Hgb Hct MCH RDW Plt Count Lymph % (Auto) [place] % (Auto) Lymph # (Auto) [place] # (Auto) Seg Neutrophils % Seg Neuts % (Manual) Lymphocytes % (Manual) Nucleated RBC % Seg Neutrophils # Seg Neutrophils # Man Monocytes # (Manual) PT INR APTT D-Dimer Heparin Anti-Xa Level ABG pH 7.222 L ABG pO2 61.5 L ABG HCO3 ABG O2 Saturation 86.2 L ABG Base Excess -6.3 L ABG Hemoglobin 11.2 L Oxyhemoglobin 84.5 L Sodium Potassium Chloride Carbon Dioxide BUN Creatinine Glucose POC Glucose 106 H Hemoglobin A1c 6.7 H Lactic Acid Calcium Phosphorus Magnesium Ferritin AST ALT Alkaline Phosphatase Lactate Dehydrogenase Troponin T C-Reactive Protein Total Protein Albumin LDL Cholesterol Direct Urine Creatinine Urine Total Protein Salicylates Acetaminophen Crossmatch 10/31/21 10/31/21 10/31/21 16:07 16:35 17:45 WBC RBC Hgb Hct MCH RDW Plt Count Lymph % (Auto) [place] % (Auto) Lymph # (Auto) [place] # (Auto) Seg Neutrophils % Seg Neuts % (Manual) Lymphocytes % (Manual) Nucleated RBC % Seg Neutrophils # Seg Neutrophils # Man Monocytes # (Manual) PT INR APTT D-Dimer Heparin Anti-Xa Level ABG pH 7.267 L ABG pO2 58.3 L ABG HCO3 ABG O2 Saturation 88.3 L ABG Base Excess -5.9 L ABG Hemoglobin 10.1 L Oxyhemoglobin 86.5 L Sodium Potassium Chloride Carbon Dioxide BUN Creatinine Glucose POC Glucose 115 H Hemoglobin A1c Lactic Acid Calcium Phosphorus Magnesium Ferritin AST ALT Alkaline Phosphatase Lactate Dehydrogenase Troponin T C-Reactive Protein Total Protein Albumin LDL Cholesterol Direct Urine Creatinine 383.6 H Urine Total Protein Salicylates Acetaminophen Crossmatch 11/01/21 11/01/21 11/01/21 00:06 05:08 06:00 WBC 12.6 H RBC 3.43 L Hgb 8.9 L Hct 28.7 L MCH 26 L RDW 15.7 H Plt Count 130 L Lymph % (Auto) [place] % (Auto) Lymph # (Auto) [place] # (Auto) Seg Neutrophils % Seg Neuts % (Manual) Lymphocytes % (Manual) Nucleated RBC % Seg Neutrophils # Seg Neutrophils # Man Monocytes # (Manual) PT INR APTT D-Dimer Heparin Anti-Xa Level ABG pH ABG pO2 ABG HCO3 ABG O2 Saturation ABG Base Excess ABG Hemoglobin Oxyhemoglobin Sodium Potassium Chloride Carbon Dioxide BUN Creatinine Glucose POC Glucose 114 H 120 H Hemoglobin A1c Lactic Acid Calcium Phosphorus Magnesium Ferritin AST ALT Alkaline Phosphatase Lactate Dehydrogenase Troponin T C-Reactive Protein Total Protein Albumin LDL Cholesterol Direct Urine Creatinine Urine Total Protein Salicylates Acetaminophen Crossmatch 11/01/21 11/01/21 11/01/21 06:00 11:43 14:00 WBC RBC Hgb Hct MCH RDW Plt Count Lymph % (Auto) [place] % (Auto) Lymph # (Auto) [place] # (Auto) Seg Neutrophils % Seg Neuts % (Manual) Lymphocytes % (Manual) Nucleated RBC % Seg Neutrophils # Seg Neutrophils # Man Monocytes # (Manual) PT INR APTT D-Dimer Heparin Anti-Xa Level ABG pH 7.349 L ABG pO2 75.6 L ABG HCO3 ABG O2 Saturation ABG Base Excess -3.9 L ABG Hemoglobin 9.8 L Oxyhemoglobin 93.5 L Sodium Potassium Chloride 114.1 H Carbon Dioxide 20 L BUN 33 H Creatinine Glucose 131 H POC Glucose 151 H Hemoglobin A1c Lactic Acid Calcium 7.7 L Phosphorus Magnesium Ferritin AST 79 H ALT 259 H Alkaline Phosphatase Lactate Dehydrogenase Troponin T C-Reactive Protein Total Protein 5.5 L Albumin 2.7 L LDL Cholesterol Direct Urine Creatinine Urine Total Protein Salicylates Acetaminophen Crossmatch 11/01/21 11/01/21 11/02/21 16:45 22:55 05:12 WBC RBC Hgb Hct MCH RDW Plt Count Lymph % (Auto) [place] % (Auto) Lymph # (Auto) [place] # (Auto) Seg Neutrophils % Seg Neuts % (Manual) Lymphocytes % (Manual) Nucleated RBC % Seg Neutrophils # Seg Neutrophils # Man Monocytes # (Manual) PT INR APTT D-Dimer Heparin Anti-Xa Level ABG pH ABG pO2 ABG HCO3 ABG O2 Saturation ABG Base Excess ABG Hemoglobin Oxyhemoglobin Sodium Potassium Chloride Carbon Dioxide BUN Creatinine Glucose POC Glucose 119 H 129 H 140 H Hemoglobin A1c Lactic Acid Calcium Phosphorus Magnesium Ferritin AST ALT Alkaline Phosphatase Lactate Dehydrogenase Troponin T C-Reactive Protein Total Protein Albumin LDL Cholesterol Direct Urine Creatinine Urine Total Protein Salicylates Acetaminophen Crossmatch 11/02/21 11/02/21 11/02/21 05:35 05:35 09:35 WBC 13.5 H RBC 3.60 L Hgb 9.7 L Hct MCH 27 L RDW 15.7 H Plt Count Lymph % (Auto) [place] % (Auto) Lymph # (Auto) [place] # (Auto) Seg Neutrophils % Seg Neuts % (Manual) Lymphocytes % (Manual) Nucleated RBC % Seg Neutrophils # Seg Neutrophils # Man Monocytes # (Manual) PT INR APTT D-Dimer Heparin Anti-Xa Level ABG pH 7.208 L ABG pO2 75.9 L ABG HCO3 ABG O2 Saturation 93.6 L ABG Base Excess -4.3 L ABG Hemoglobin 9.1 L Oxyhemoglobin 91.6 L Sodium Potassium 5.2 H D Chloride 112.6 H Carbon Dioxide BUN 32 H Creatinine Glucose 152 H POC Glucose Hemoglobin A1c Lactic Acid Calcium 8.2 L Phosphorus Magnesium 2.70 H Ferritin AST ALT Alkaline Phosphatase Lactate Dehydrogenase Troponin T C-Reactive Protein Total Protein Albumin LDL Cholesterol Direct Urine Creatinine Urine Total Protein Salicylates Acetaminophen Crossmatch 11/02/21 11/02/21 11/02/21 11:44 17:13 23:43 WBC RBC Hgb Hct MCH RDW Plt Count Lymph % (Auto) [place] % (Auto) Lymph # (Auto) [place] # (Auto) Seg Neutrophils % Seg Neuts % (Manual) Lymphocytes % (Manual) Nucleated RBC % Seg Neutrophils # Seg Neutrophils # Man Monocytes # (Manual) PT INR APTT D-Dimer Heparin Anti-Xa Level ABG pH ABG pO2 ABG HCO3 ABG O2 Saturation ABG Base Excess ABG Hemoglobin Oxyhemoglobin Sodium Potassium Chloride Carbon Dioxide BUN Creatinine Glucose POC Glucose 173 H 148 H 137 H Hemoglobin A1c Lactic Acid Calcium Phosphorus Magnesium Ferritin AST ALT Alkaline Phosphatase Lactate Dehydrogenase Troponin T C-Reactive Protein Total Protein Albumin LDL Cholesterol Direct Urine Creatinine Urine Total Protein Salicylates Acetaminophen Crossmatch 11/03/21 11/03/21 11/03/21 04:59 06:00 06:00 WBC RBC 3.43 L Hgb 9.1 L Hct 29.0 L MCH 26 L RDW 16.4 H Plt Count Lymph % (Auto) [place] % (Auto) Lymph # (Auto) [place] # (Auto) Seg Neutrophils % Seg Neuts % (Manual) Lymphocytes % (Manual) Nucleated RBC % Seg Neutrophils # Seg Neutrophils # Man Monocytes # (Manual) PT INR APTT D-Dimer Heparin Anti-Xa Level 0.17 L ABG pH ABG pO2 ABG HCO3 ABG O2 Saturation ABG Base Excess ABG Hemoglobin Oxyhemoglobin Sodium Potassium Chloride Carbon Dioxide BUN Creatinine Glucose POC Glucose 167 H Hemoglobin A1c Lactic Acid Calcium Phosphorus Magnesium Ferritin AST ALT Alkaline Phosphatase Lactate Dehydrogenase Troponin T C-Reactive Protein Total Protein Albumin LDL Cholesterol Direct Urine Creatinine Urine Total Protein Salicylates Acetaminophen Crossmatch 11/03/21 11/03/21 11/03/21 06:00 09:20 11:58 WBC RBC Hgb Hct MCH RDW Plt Count Lymph % (Auto) [place] % (Auto) Lymph # (Auto) [place] # (Auto) Seg Neutrophils % Seg Neuts % (Manual) Lymphocytes % (Manual) Nucleated RBC % Seg Neutrophils # Seg Neutrophils # Man Monocytes # (Manual) PT INR APTT D-Dimer Heparin Anti-Xa Level ABG pH 7.274 L ABG pO2 75.6 L ABG HCO3 ABG O2 Saturation 94.9 L ABG Base Excess -2.5 L ABG Hemoglobin 9.3 L Oxyhemoglobin 92.9 L Sodium 149 H Potassium Chloride 117.5 H Carbon Dioxide BUN 32 H Creatinine Glucose 173 H POC Glucose 192 H Hemoglobin A1c Lactic Acid Calcium 8.1 L Phosphorus Magnesium Ferritin AST ALT Alkaline Phosphatase Lactate Dehydrogenase Troponin T C-Reactive Protein Total Protein Albumin LDL Cholesterol Direct Urine Creatinine Urine Total Protein Salicylates Acetaminophen Crossmatch 11/03/21 11/03/21 11/04/21 18:22 Unknown 00:09 WBC RBC Hgb Hct MCH RDW Plt Count Lymph % (Auto) [place] % (Auto) Lymph # (Auto) [place] # (Auto) Seg Neutrophils % Seg Neuts % (Manual) Lymphocytes % (Manual) Nucleated RBC % Seg Neutrophils # Seg Neutrophils # Man Monocytes # (Manual) PT INR APTT D-Dimer Heparin Anti-Xa Level 0.29 L ABG pH ABG pO2 ABG HCO3 ABG O2 Saturation ABG Base Excess ABG Hemoglobin Oxyhemoglobin Sodium Potassium Chloride Carbon Dioxide BUN Creatinine Glucose POC Glucose 178 H 221 H Hemoglobin A1c Lactic Acid Calcium Phosphorus Magnesium Ferritin AST ALT Alkaline Phosphatase Lactate Dehydrogenase Troponin T C-Reactive Protein Total Protein Albumin LDL Cholesterol Direct Urine Creatinine Urine Total Protein Salicylates Acetaminophen Crossmatch 11/04/21 11/04/21 11/04/21 05:09 09:40 09:40 WBC 16.8 H RBC Hgb Hct MCH 27 L RDW 16.5 H Plt Count Lymph % (Auto) [place] % (Auto) Lymph # (Auto) [place] # (Auto) Seg Neutrophils % Seg Neuts % (Manual) Lymphocytes % (Manual) Nucleated RBC % Seg Neutrophils # Seg Neutrophils # Man Monocytes # (Manual) PT INR APTT D-Dimer Heparin Anti-Xa Level ABG pH ABG pO2 ABG HCO3 ABG O2 Saturation ABG Base Excess ABG Hemoglobin Oxyhemoglobin Sodium Potassium 5.9 H Chloride 108.5 H Carbon Dioxide BUN 54 H Creatinine 1.8 H Glucose 198 H POC Glucose 182 H Hemoglobin A1c Lactic Acid Calcium Phosphorus Magnesium 3.00 H Ferritin AST ALT Alkaline Phosphatase Lactate Dehydrogenase Troponin T C-Reactive Protein Total Protein Albumin LDL Cholesterol Direct Urine Creatinine Urine Total Protein Salicylates Acetaminophen Crossmatch 11/04/21 11/04/21 11/04/21 12:13 13:34 14:05 WBC RBC Hgb Hct MCH RDW Plt Count Lymph % (Auto) [place] % (Auto) Lymph # (Auto) [place] # (Auto) Seg Neutrophils % Seg Neuts % (Manual) Lymphocytes % (Manual) Nucleated RBC % Seg Neutrophils # Seg Neutrophils # Man Monocytes # (Manual) PT INR APTT D-Dimer Heparin Anti-Xa Level ABG pH 7.223 L ABG pO2 71.3 L ABG HCO3 ABG O2 Saturation 92.8 L ABG Base Excess ABG Hemoglobin 8.2 L Oxyhemoglobin 91.0 L Sodium Potassium Chloride Carbon Dioxide BUN Creatinine Glucose POC Glucose 184 H Hemoglobin A1c Lactic Acid Calcium Phosphorus Magnesium Ferritin AST ALT Alkaline Phosphatase Lactate Dehydrogenase Troponin T C-Reactive Protein Total Protein Albumin LDL Cholesterol Direct Urine Creatinine 184.6 H Urine Total Protein Salicylates Acetaminophen Crossmatch 11/04/21 11/04/21 11/05/21 18:02 Unknown 00:07 WBC RBC Hgb Hct MCH RDW Plt Count Lymph % (Auto) [place] % (Auto) Lymph # (Auto) [place] # (Auto) Seg Neutrophils % Seg Neuts % (Manual) Lymphocytes % (Manual) Nucleated RBC % Seg Neutrophils # Seg Neutrophils # Man Monocytes # (Manual) PT INR APTT D-Dimer Heparin Anti-Xa Level ABG pH ABG pO2 ABG HCO3 ABG O2 Saturation ABG Base Excess ABG Hemoglobin Oxyhemoglobin Sodium Potassium Chloride Carbon Dioxide BUN Creatinine Glucose POC Glucose 262 H 259 H Hemoglobin A1c Lactic Acid Calcium Phosphorus Magnesium Ferritin AST ALT Alkaline Phosphatase Lactate Dehydrogenase Troponin T C-Reactive Protein Total Protein Albumin LDL Cholesterol Direct Urine Creatinine 190.9 H Urine Total Protein 172 H Salicylates Acetaminophen Crossmatch 11/05/21 11/05/21 11/05/21 04:20 04:20 05:30 WBC 17.9 H RBC 3.64 L Hgb 9.7 L Hct MCH 27 L RDW 16.4 H Plt Count Lymph % (Auto) [place] % (Auto) Lymph # (Auto) [place] # (Auto) Seg Neutrophils % Seg Neuts % (Manual) Lymphocytes % (Manual) Nucleated RBC % Seg Neutrophils # Seg Neutrophils # Man Monocytes # (Manual) PT INR APTT D-Dimer Heparin Anti-Xa Level ABG pH ABG pO2 ABG HCO3 ABG O2 Saturation ABG Base Excess ABG Hemoglobin Oxyhemoglobin Sodium Potassium 5.6 H Chloride 108.4 H Carbon Dioxide BUN 71 H Creatinine 1.9 H Glucose 270 H POC Glucose 283 H Hemoglobin A1c Lactic Acid Calcium Phosphorus Magnesium Ferritin AST ALT Alkaline Phosphatase Lactate Dehydrogenase Troponin T C-Reactive Protein Total Protein Albumin LDL Cholesterol Direct Urine Creatinine Urine Total Protein Salicylates Acetaminophen Crossmatch 11/05/21 11/05/21 11/05/21 10:05 12:10 15:29 WBC RBC Hgb Hct MCH RDW Plt Count Lymph % (Auto) [place] % (Auto) Lymph # (Auto) [place] # (Auto) Seg Neutrophils % Seg Neuts % (Manual) Lymphocytes % (Manual) Nucleated RBC % Seg Neutrophils # Seg Neutrophils # Man Monocytes # (Manual) PT INR APTT D-Dimer Heparin Anti-Xa Level ABG pH 7.248 L ABG pO2 73.7 L ABG HCO3 26.2 H ABG O2 Saturation 93.1 L ABG Base Excess ABG Hemoglobin 8.9 L Oxyhemoglobin 91.4 L Sodium Potassium Chloride Carbon Dioxide BUN Creatinine Glucose POC Glucose 225 H 199 H Hemoglobin A1c Lactic Acid Calcium Phosphorus Magnesium Ferritin AST ALT Alkaline Phosphatase Lactate Dehydrogenase Troponin T C-Reactive Protein Total Protein Albumin LDL Cholesterol Direct Urine Creatinine Urine Total Protein Salicylates Acetaminophen Crossmatch 11/05/21 11/05/21 11/05/21 15:51 17:32 17:40 WBC RBC Hgb Hct MCH RDW Plt Count Lymph % (Auto) [place] % (Auto) Lymph # (Auto) [place] # (Auto) Seg Neutrophils % Seg Neuts % (Manual) Lymphocytes % (Manual) Nucleated RBC % Seg Neutrophils # Seg Neutrophils # Man Monocytes # (Manual) PT INR APTT D-Dimer Heparin Anti-Xa Level ABG pH ABG pO2 ABG HCO3 ABG O2 Saturation ABG Base Excess ABG Hemoglobin Oxyhemoglobin Sodium Potassium 5.2 H Chloride 107.8 H Carbon Dioxide BUN 79 H Creatinine 1.9 H Glucose 204 H POC Glucose 278 H 197 H Hemoglobin A1c Lactic Acid Calcium Phosphorus Magnesium Ferritin AST ALT Alkaline Phosphatase Lactate Dehydrogenase Troponin T C-Reactive Protein Total Protein Albumin LDL Cholesterol Direct Urine Creatinine Urine Total Protein Salicylates Acetaminophen Crossmatch 11/05/21 11/05/21 11/05/21 21:25 22:22 23:43 WBC RBC Hgb Hct MCH RDW Plt Count Lymph % (Auto) [place] % (Auto) Lymph # (Auto) [place] # (Auto) Seg Neutrophils % Seg Neuts % (Manual) Lymphocytes % (Manual) Nucleated RBC % Seg Neutrophils # Seg Neutrophils # Man Monocytes # (Manual) PT INR APTT D-Dimer Heparin Anti-Xa Level ABG pH ABG pO2 ABG HCO3 ABG O2 Saturation ABG Base Excess ABG Hemoglobin Oxyhemoglobin Sodium Potassium 5.3 H Chloride 109.2 H Carbon Dioxide BUN 81 H Creatinine 2.0 H Glucose 195 H POC Glucose 180 H 203 H Hemoglobin A1c Lactic Acid Calcium Phosphorus Magnesium Ferritin AST ALT Alkaline Phosphatase Lactate Dehydrogenase Troponin T C-Reactive Protein Total Protein Albumin LDL Cholesterol Direct Urine Creatinine Urine Total Protein Salicylates Acetaminophen Crossmatch 11/05/21 11/06/21 11/06/21 Unknown 02:35 05:09 WBC RBC Hgb Hct MCH RDW Plt Count Lymph % (Auto) [place] % (Auto) Lymph # (Auto) [place] # (Auto) Seg Neutrophils % Seg Neuts % (Manual) Lymphocytes % (Manual) Nucleated RBC % Seg Neutrophils # Seg Neutrophils # Man Monocytes # (Manual) PT INR APTT D-Dimer Heparin Anti-Xa Level ABG pH ABG pO2 ABG HCO3 ABG O2 Saturation ABG Base Excess ABG Hemoglobin Oxyhemoglobin Sodium 146 H Potassium 6.0 H Chloride 108.1 H 107.1 H Carbon Dioxide 21 L BUN 80 H 84 H Creatinine 2.0 H 2.0 H Glucose 238 H 235 H POC Glucose 215 H Hemoglobin A1c Lactic Acid Calcium Phosphorus Magnesium 2.80 H Ferritin AST ALT 77 H Alkaline Phosphatase Lactate Dehydrogenase Troponin T C-Reactive Protein Total Protein Albumin 3.0 L LDL Cholesterol Direct Urine Creatinine Urine Total Protein Salicylates Acetaminophen Crossmatch 11/06/21 11/06/21 11/06/21 05:40 08:07 08:07 WBC RBC Hgb Hct MCH RDW Plt Count Lymph % (Auto) [place] % (Auto) Lymph # (Auto) [place] # (Auto) Seg Neutrophils % Seg Neuts % (Manual) Lymphocytes % (Manual) Nucleated RBC % Seg Neutrophils # Seg Neutrophils # Man Monocytes # (Manual) PT INR APTT D-Dimer Heparin Anti-Xa Level 1.24 H ABG pH 7.311 L ABG pO2 72.8 L ABG HCO3 29.7 H ABG O2 Saturation 94.1 L ABG Base Excess ABG Hemoglobin 11.4 L Oxyhemoglobin 92.3 L Sodium Potassium 5.2 H Chloride Carbon Dioxide BUN 85 H Creatinine 2.3 H Glucose 236 H POC Glucose Hemoglobin A1c Lactic Acid Calcium Phosphorus Magnesium Ferritin AST ALT Alkaline Phosphatase Lactate Dehydrogenase Troponin T C-Reactive Protein Total Protein Albumin LDL Cholesterol Direct Urine Creatinine Urine Total Protein Salicylates Acetaminophen Crossmatch 11/06/21 11/06/21 11/06/21 12:14 12:57 14:28 WBC RBC Hgb Hct MCH RDW Plt Count Lymph % (Auto) [place] % (Auto) Lymph # (Auto) [place] # (Auto) Seg Neutrophils % Seg Neuts % (Manual) Lymphocytes % (Manual) Nucleated RBC % Seg Neutrophils # Seg Neutrophils # Man Monocytes # (Manual) PT INR APTT D-Dimer Heparin Anti-Xa Level ABG pH 7.282 L ABG pO2 72.6 L ABG HCO3 30.8 H ABG O2 Saturation 93.7 L ABG Base Excess 3.2 H ABG Hemoglobin 8.6 L Oxyhemoglobin 91.8 L Sodium Potassium Chloride Carbon Dioxide BUN 91 H Creatinine 2.6 H Glucose 259 H POC Glucose 225 H Hemoglobin A1c Lactic Acid Calcium Phosphorus Magnesium Ferritin AST ALT Alkaline Phosphatase Lactate Dehydrogenase Troponin T C-Reactive Protein Total Protein Albumin LDL Cholesterol Direct Urine Creatinine Urine Total Protein Salicylates Acetaminophen Crossmatch 11/06/21 11/06/21 11/06/21 17:28 19:20 21:30 WBC RBC Hgb Hct MCH RDW Plt Count Lymph % (Auto) [place] % (Auto) Lymph # (Auto) [place] # (Auto) Seg Neutrophils % Seg Neuts % (Manual) Lymphocytes % (Manual) Nucleated RBC % Seg Neutrophils # Seg Neutrophils # Man Monocytes # (Manual) PT INR APTT D-Dimer Heparin Anti-Xa Level 0.73 H ABG pH ABG pO2 ABG HCO3 ABG O2 Saturation ABG Base Excess ABG Hemoglobin Oxyhemoglobin Sodium Potassium Chloride Carbon Dioxide BUN 95 H Creatinine 2.9 H Glucose 233 H POC Glucose 206 H Hemoglobin A1c Lactic Acid Calcium Phosphorus Magnesium Ferritin AST ALT Alkaline Phosphatase Lactate Dehydrogenase Troponin T C-Reactive Protein Total Protein Albumin LDL Cholesterol Direct Urine Creatinine Urine Total Protein Salicylates Acetaminophen Crossmatch 11/06/21 11/07/21 11/07/21 22:56 05:06 06:30 WBC RBC Hgb Hct MCH RDW Plt Count Lymph % (Auto) [place] % (Auto) Lymph # (Auto) [place] # (Auto) Seg Neutrophils % Seg Neuts % (Manual) Lymphocytes % (Manual) Nucleated RBC % Seg Neutrophils # Seg Neutrophils # Man Monocytes # (Manual) PT INR APTT D-Dimer Heparin Anti-Xa Level ABG pH ABG pO2 ABG HCO3 ABG O2 Saturation ABG Base Excess ABG Hemoglobin Oxyhemoglobin Sodium 146 H Potassium Chloride Carbon Dioxide BUN 98 H Creatinine 2.8 H Glucose 202 H POC Glucose 215 H 172 H Hemoglobin A1c Lactic Acid Calcium Phosphorus 4.90 H D Magnesium 2.90 H Ferritin AST ALT Alkaline Phosphatase Lactate Dehydrogenase Troponin T C-Reactive Protein Total Protein Albumin LDL Cholesterol Direct Urine Creatinine Urine Total Protein Salicylates Acetaminophen Crossmatch 11/07/21 11/07/21 11/07/21 06:30 11:26 12:15 WBC 16.0 H RBC 3.06 L Hgb 8.2 L Hct 26.1 L MCH 27 L RDW 16.2 H Plt Count Lymph % (Auto) [place] % (Auto) Lymph # (Auto) [place] # (Auto) Seg Neutrophils % Seg Neuts % (Manual) 77.0 H Lymphocytes % (Manual) 11.0 L Nucleated RBC % 2.0 H Seg Neutrophils # Seg Neutrophils # Man 12.3 H Monocytes # (Manual) PT INR APTT D-Dimer Heparin Anti-Xa Level ABG pH 7.298 L ABG pO2 73.0 L ABG HCO3 33.3 H ABG O2 Saturation 94.4 L ABG Base Excess 5.8 H ABG Hemoglobin 8.2 L Oxyhemoglobin 92.7 L Sodium Potassium Chloride Carbon Dioxide BUN Creatinine Glucose POC Glucose 179 H Hemoglobin A1c Lactic Acid Calcium Phosphorus Magnesium Ferritin AST ALT Alkaline Phosphatase Lactate Dehydrogenase Troponin T C-Reactive Protein Total Protein Albumin LDL Cholesterol Direct Urine Creatinine Urine Total Protein Salicylates Acetaminophen Crossmatch 11/07/21 11/07/21 11/07/21 17:57 22:16 23:49 WBC RBC Hgb Hct MCH RDW Plt Count Lymph % (Auto) [place] % (Auto) Lymph # (Auto) [place] # (Auto) Seg Neutrophils % Seg Neuts % (Manual) Lymphocytes % (Manual) Nucleated RBC % Seg Neutrophils # Seg Neutrophils # Man Monocytes # (Manual) PT INR APTT D-Dimer Heparin Anti-Xa Level ABG pH ABG pO2 ABG HCO3 ABG O2 Saturation ABG Base Excess ABG Hemoglobin Oxyhemoglobin Sodium Potassium Chloride Carbon Dioxide BUN Creatinine Glucose POC Glucose 166 H 223 H 190 H Hemoglobin A1c Lactic Acid Calcium Phosphorus Magnesium Ferritin AST ALT Alkaline Phosphatase Lactate Dehydrogenase Troponin T C-Reactive Protein Total Protein Albumin LDL Cholesterol Direct Urine Creatinine Urine Total Protein Salicylates Acetaminophen Crossmatch 11/08/21 11/08/21 11/08/21 04:20 04:20 06:16 WBC 22.1 H RBC 3.01 L Hgb 8.1 L Hct 25.6 L MCH 27 L RDW 15.4 H Plt Count Lymph % (Auto) [place] % (Auto) Lymph # (Auto) [place] # (Auto) Seg Neutrophils % Seg Neuts % (Manual) Lymphocytes % (Manual) Nucleated RBC % Seg Neutrophils # Seg Neutrophils # Man Monocytes # (Manual) PT INR APTT D-Dimer Heparin Anti-Xa Level ABG pH ABG pO2 ABG HCO3 ABG O2 Saturation ABG Base Excess ABG Hemoglobin Oxyhemoglobin Sodium 151 H Potassium 3.1 L D Chloride 107.3 H Carbon Dioxide 31 H BUN 82 H Creatinine 1.8 H Glucose 232 H POC Glucose 198 H Hemoglobin A1c Lactic Acid Calcium 8.1 L Phosphorus Magnesium Ferritin AST ALT Alkaline Phosphatase Lactate Dehydrogenase Troponin T C-Reactive Protein Total Protein Albumin LDL Cholesterol Direct Urine Creatinine Urine Total Protein Salicylates Acetaminophen Crossmatch 11/08/21 11/08/21 11/08/21 11:38 12:00 18:29 WBC RBC Hgb Hct MCH RDW Plt Count Lymph % (Auto) [place] % (Auto) Lymph # (Auto) [place] # (Auto) Seg Neutrophils % Seg Neuts % (Manual) Lymphocytes % (Manual) Nucleated RBC % Seg Neutrophils # Seg Neutrophils # Man Monocytes # (Manual) PT INR APTT D-Dimer Heparin Anti-Xa Level ABG pH ABG pO2 ABG HCO3 ABG O2 Saturation ABG Base Excess ABG Hemoglobin Oxyhemoglobin Sodium Potassium 3.0 L Chloride Carbon Dioxide BUN Creatinine Glucose POC Glucose 190 H 211 H Hemoglobin A1c Lactic Acid Calcium Phosphorus Magnesium Ferritin AST ALT Alkaline Phosphatase Lactate Dehydrogenase Troponin T C-Reactive Protein Total Protein Albumin LDL Cholesterol Direct Urine Creatinine Urine Total Protein Salicylates Acetaminophen Crossmatch 11/08/21 11/08/21 11/09/21 21:34 21:40 00:36 WBC RBC Hgb Hct MCH RDW Plt Count Lymph % (Auto) [place] % (Auto) Lymph # (Auto) [place] # (Auto) Seg Neutrophils % Seg Neuts % (Manual) Lymphocytes % (Manual) Nucleated RBC % Seg Neutrophils # Seg Neutrophils # Man Monocytes # (Manual) PT INR APTT D-Dimer Heparin Anti-Xa Level ABG pH ABG pO2 ABG HCO3 ABG O2 Saturation ABG Base Excess ABG Hemoglobin Oxyhemoglobin Sodium 148 H Potassium 2.8 L* Chloride Carbon Dioxide 31 H BUN 68 H Creatinine 1.5 H Glucose 191 H POC Glucose 194 H 140 H Hemoglobin A1c Lactic Acid Calcium 8.2 L Phosphorus Magnesium Ferritin AST ALT Alkaline Phosphatase Lactate Dehydrogenase Troponin T C-Reactive Protein Total Protein Albumin LDL Cholesterol Direct Urine Creatinine Urine Total Protein Salicylates Acetaminophen Crossmatch 11/09/21 11/09/21 11/09/21 04:51 04:51 04:51 WBC 27.6 H RBC 3.18 L Hgb 8.4 L Hct 26.6 L MCH 27 L RDW 15.3 H Plt Count Lymph % (Auto) [place] % (Auto) Lymph # (Auto) [place] # (Auto) Seg Neutrophils % Seg Neuts % (Manual) Lymphocytes % (Manual) Nucleated RBC % Seg Neutrophils # Seg Neutrophils # Man Monocytes # (Manual) PT INR APTT D-Dimer Heparin Anti-Xa Level 0.18 L ABG pH ABG pO2 ABG HCO3 ABG O2 Saturation ABG Base Excess ABG Hemoglobin Oxyhemoglobin Sodium 148 H Potassium 2.7 L* Chloride Carbon Dioxide BUN 59 H Creatinine 1.4 H Glucose 143 H POC Glucose Hemoglobin A1c Lactic Acid Calcium 8.3 L Phosphorus Magnesium Ferritin AST ALT Alkaline Phosphatase Lactate Dehydrogenase Troponin T C-Reactive Protein Total Protein Albumin LDL Cholesterol Direct Urine Creatinine Urine Total Protein Salicylates Acetaminophen Crossmatch 11/09/21 11/09/21 11/09/21 05:52 08:45 11:00 WBC RBC Hgb Hct MCH RDW Plt Count Lymph % (Auto) [place] % (Auto) Lymph # (Auto) [place] # (Auto) Seg Neutrophils % Seg Neuts % (Manual) Lymphocytes % (Manual) Nucleated RBC % Seg Neutrophils # Seg Neutrophils # Man Monocytes # (Manual) PT INR APTT D-Dimer Heparin Anti-Xa Level ABG pH ABG pO2 73.2 L ABG HCO3 33.8 H ABG O2 Saturation ABG Base Excess 8.7 H ABG Hemoglobin 8.5 L Oxyhemoglobin 94.1 L Sodium Potassium Chloride Carbon Dioxide BUN Creatinine Glucose POC Glucose 166 H 136 H Hemoglobin A1c Lactic Acid Calcium Phosphorus Magnesium Ferritin AST ALT Alkaline Phosphatase Lactate Dehydrogenase Troponin T C-Reactive Protein Total Protein Albumin LDL Cholesterol Direct Urine Creatinine Urine Total Protein Salicylates Acetaminophen Crossmatch 11/09/21 11/09/21 11/09/21 15:48 16:10 20:31 WBC RBC Hgb Hct MCH RDW Plt Count Lymph % (Auto) [place] % (Auto) Lymph # (Auto) [place] # (Auto) Seg Neutrophils % Seg Neuts % (Manual) Lymphocytes % (Manual) Nucleated RBC % Seg Neutrophils # Seg Neutrophils # Man Monocytes # (Manual) PT INR APTT D-Dimer Heparin Anti-Xa Level ABG pH ABG pO2 ABG HCO3 ABG O2 Saturation ABG Base Excess ABG Hemoglobin Oxyhemoglobin Sodium Potassium 2.8 L* Chloride Carbon Dioxide 31 H BUN 53 H Creatinine 1.3 H Glucose 208 H POC Glucose 203 H 166 H Hemoglobin A1c Lactic Acid Calcium 7.9 L Phosphorus Magnesium Ferritin AST ALT Alkaline Phosphatase Lactate Dehydrogenase Troponin T C-Reactive Protein Total Protein Albumin LDL Cholesterol Direct Urine Creatinine Urine Total Protein Salicylates Acetaminophen Crossmatch 11/09/21 11/09/21 11/09/21 21:30 23:16 Unknown WBC RBC Hgb Hct MCH RDW Plt Count Lymph % (Auto) [place] % (Auto) Lymph # (Auto) [place] # (Auto) Seg Neutrophils % Seg Neuts % (Manual) Lymphocytes % (Manual) Nucleated RBC % Seg Neutrophils # Seg Neutrophils # Man Monocytes # (Manual) PT INR APTT D-Dimer Heparin Anti-Xa Level 0.24 L ABG pH ABG pO2 ABG HCO3 ABG O2 Saturation ABG Base Excess ABG Hemoglobin Oxyhemoglobin Sodium Potassium Chloride Carbon Dioxide BUN 52 H Creatinine 1.4 H Glucose 185 H POC Glucose 172 H Hemoglobin A1c Lactic Acid Calcium 7.8 L Phosphorus Magnesium Ferritin AST ALT Alkaline Phosphatase Lactate Dehydrogenase Troponin T C-Reactive Protein Total Protein Albumin LDL Cholesterol Direct Urine Creatinine Urine Total Protein Salicylates Acetaminophen Crossmatch 11/10/21 11/10/21 11/10/21 02:00 04:17 04:17 WBC 24.5 H RBC 2.75 L Hgb 7.5 L Hct 22.9 L MCH 27 L RDW Plt Count Lymph % (Auto) [place] % (Auto) Lymph # (Auto) [place] # (Auto) Seg Neutrophils % Seg Neuts % (Manual) Lymphocytes % (Manual) Nucleated RBC % Seg Neutrophils # Seg Neutrophils # Man Monocytes # (Manual) PT INR APTT D-Dimer Heparin Anti-Xa Level 0.26 L ABG pH ABG pO2 ABG HCO3 ABG O2 Saturation ABG Base Excess ABG Hemoglobin Oxyhemoglobin Sodium Potassium 2.9 L* Chloride Carbon Dioxide 35 H BUN 48 H Creatinine Glucose 212 H POC Glucose Hemoglobin A1c Lactic Acid Calcium 8.1 L Phosphorus Magnesium Ferritin AST ALT Alkaline Phosphatase Lactate Dehydrogenase Troponin T C-Reactive Protein Total Protein Albumin LDL Cholesterol Direct Urine Creatinine Urine Total Protein Salicylates Acetaminophen Crossmatch 11/10/21 11/10/21 11/10/21 05:01 08:39 11:03 WBC RBC Hgb Hct MCH RDW Plt Count Lymph % (Auto) [place] % (Auto) Lymph # (Auto) [place] # (Auto) Seg Neutrophils % Seg Neuts % (Manual) Lymphocytes % (Manual) Nucleated RBC % Seg Neutrophils # Seg Neutrophils # Man Monocytes # (Manual) PT INR APTT D-Dimer Heparin Anti-Xa Level 0.12 L ABG pH ABG pO2 ABG HCO3 ABG O2 Saturation ABG Base Excess ABG Hemoglobin Oxyhemoglobin Sodium Potassium Chloride Carbon Dioxide BUN Creatinine Glucose POC Glucose 203 H 152 H Hemoglobin A1c Lactic Acid Calcium Phosphorus Magnesium Ferritin AST ALT Alkaline Phosphatase Lactate Dehydrogenase Troponin T C-Reactive Protein Total Protein Albumin LDL Cholesterol Direct Urine Creatinine Urine Total Protein Salicylates Acetaminophen Crossmatch 11/10/21 11/10/21 11/10/21 12:45 15:43 21:05 WBC RBC Hgb Hct MCH RDW Plt Count Lymph % (Auto) [place] % (Auto) Lymph # (Auto) [place] # (Auto) Seg Neutrophils % Seg Neuts % (Manual) Lymphocytes % (Manual) Nucleated RBC % Seg Neutrophils # Seg Neutrophils # Man Monocytes # (Manual) PT INR APTT D-Dimer Heparin Anti-Xa Level ABG pH ABG pO2 ABG HCO3 ABG O2 Saturation ABG Base Excess ABG Hemoglobin Oxyhemoglobin Sodium 146 H Potassium 3.3 L Chloride Carbon Dioxide 31 H BUN 43 H Creatinine Glucose 155 H POC Glucose 139 H 139 H Hemoglobin A1c Lactic Acid Calcium 8.3 L Phosphorus Magnesium Ferritin AST ALT Alkaline Phosphatase Lactate Dehydrogenase Troponin T C-Reactive Protein Total Protein Albumin LDL Cholesterol Direct Urine Creatinine Urine Total Protein Salicylates Acetaminophen Crossmatch 11/10/21 11/11/21 11/11/21 23:25 03:49 03:49 WBC 22.1 H RBC 2.69 L Hgb 7.2 L Hct 22.7 L MCH 27 L RDW Plt Count Lymph % (Auto) [place] % (Auto) Lymph # (Auto) [place] # (Auto) Seg Neutrophils % Seg Neuts % (Manual) Lymphocytes % (Manual) Nucleated RBC % Seg Neutrophils # Seg Neutrophils # Man Monocytes # (Manual) PT INR APTT D-Dimer Heparin Anti-Xa Level ABG pH ABG pO2 ABG HCO3 ABG O2 Saturation ABG Base Excess ABG Hemoglobin Oxyhemoglobin Sodium Potassium Chloride Carbon Dioxide 32 H BUN 44 H Creatinine 1.3 H Glucose 173 H POC Glucose 146 H Hemoglobin A1c Lactic Acid Calcium Phosphorus Magnesium Ferritin AST ALT Alkaline Phosphatase Lactate Dehydrogenase Troponin T C-Reactive Protein Total Protein Albumin LDL Cholesterol Direct Urine Creatinine Urine Total Protein Salicylates Acetaminophen Crossmatch 11/11/21 11/11/21 11/11/21 05:03 10:50 11:32 WBC RBC Hgb Hct MCH RDW Plt Count Lymph % (Auto) [place] % (Auto) Lymph # (Auto) [place] # (Auto) Seg Neutrophils % Seg Neuts % (Manual) Lymphocytes % (Manual) Nucleated RBC % Seg Neutrophils # Seg Neutrophils # Man Monocytes # (Manual) PT INR APTT D-Dimer Heparin Anti-Xa Level ABG pH ABG pO2 ABG HCO3 ABG O2 Saturation ABG Base Excess ABG Hemoglobin Oxyhemoglobin Sodium Potassium Chloride Carbon Dioxide BUN Creatinine Glucose POC Glucose 152 H 129 H 133 H Hemoglobin A1c Lactic Acid Calcium Phosphorus Magnesium Ferritin AST ALT Alkaline Phosphatase Lactate Dehydrogenase Troponin T C-Reactive Protein Total Protein Albumin LDL Cholesterol Direct Urine Creatinine Urine Total Protein Salicylates Acetaminophen Crossmatch 11/11/21 11/11/21 11/11/21 13:53 16:31 17:13 WBC RBC Hgb Hct MCH RDW Plt Count Lymph % (Auto) [place] % (Auto) Lymph # (Auto) [place] # (Auto) Seg Neutrophils % Seg Neuts % (Manual) Lymphocytes % (Manual) Nucleated RBC % Seg Neutrophils # Seg Neutrophils # Man Monocytes # (Manual) PT INR APTT D-Dimer Heparin Anti-Xa Level ABG pH 7.475 H ABG pO2 64.1 L ABG HCO3 32.4 H ABG O2 Saturation ABG Base Excess 8.0 H ABG Hemoglobin 7.6 L Oxyhemoglobin 94.0 L Sodium Potassium Chloride Carbon Dioxide BUN Creatinine Glucose POC Glucose 116 H 125 H Hemoglobin A1c Lactic Acid Calcium Phosphorus Magnesium Ferritin AST ALT Alkaline Phosphatase Lactate Dehydrogenase Troponin T C-Reactive Protein Total Protein Albumin LDL Cholesterol Direct Urine Creatinine Urine Total Protein Salicylates Acetaminophen Crossmatch 11/11/21 11/11/21 11/12/21 20:40 23:35 03:30 WBC 17.7 H RBC 2.37 L Hgb 6.3 L Hct 20.0 L MCH 27 L RDW 15.5 H Plt Count Lymph % (Auto) [place] % (Auto) Lymph # (Auto) [place] # (Auto) Seg Neutrophils % Seg Neuts % (Manual) Lymphocytes % (Manual) Nucleated RBC % Seg Neutrophils # Seg Neutrophils # Man Monocytes # (Manual) PT INR APTT D-Dimer Heparin Anti-Xa Level 0.26 L ABG pH ABG pO2 ABG HCO3 ABG O2 Saturation ABG Base Excess ABG Hemoglobin Oxyhemoglobin Sodium Potassium Chloride Carbon Dioxide BUN Creatinine Glucose POC Glucose 118 H Hemoglobin A1c Lactic Acid Calcium Phosphorus Magnesium Ferritin AST ALT Alkaline Phosphatase Lactate Dehydrogenase Troponin T C-Reactive Protein Total Protein Albumin LDL Cholesterol Direct Urine Creatinine Urine Total Protein Salicylates Acetaminophen Crossmatch 11/12/21 11/12/21 11/12/21 03:30 04:15 11:53 WBC RBC Hgb Hct MCH RDW Plt Count Lymph % (Auto) [place] % (Auto) Lymph # (Auto) [place] # (Auto) Seg Neutrophils % Seg Neuts % (Manual) Lymphocytes % (Manual) Nucleated RBC % Seg Neutrophils # Seg Neutrophils # Man Monocytes # (Manual) PT INR APTT D-Dimer Heparin Anti-Xa Level ABG pH ABG pO2 ABG HCO3 ABG O2 Saturation ABG Base Excess ABG Hemoglobin Oxyhemoglobin Sodium Potassium Chloride Carbon Dioxide 33 H BUN 38 H Creatinine 1.3 H Glucose 102 H POC Glucose 62 L Hemoglobin A1c Lactic Acid Calcium 8.2 L Phosphorus Magnesium Ferritin AST ALT Alkaline Phosphatase Lactate Dehydrogenase Troponin T C-Reactive Protein Total Protein Albumin LDL Cholesterol Direct Urine Creatinine Urine Total Protein Salicylates Acetaminophen Crossmatch See Detail 11/12/21 11/12/21 11/12/21 17:20 19:14 23:11 WBC RBC Hgb 6.2 L Hct 19.5 L* MCH RDW Plt Count Lymph % (Auto) [place] % (Auto) Lymph # (Auto) [place] # (Auto) Seg Neutrophils % Seg Neuts % (Manual) Lymphocytes % (Manual) Nucleated RBC % Seg Neutrophils # Seg Neutrophils # Man Monocytes # (Manual) PT INR APTT D-Dimer Heparin Anti-Xa Level ABG pH ABG pO2 ABG HCO3 ABG O2 Saturation ABG Base Excess ABG Hemoglobin Oxyhemoglobin Sodium Potassium Chloride Carbon Dioxide BUN Creatinine Glucose POC Glucose 115 H 131 H Hemoglobin A1c Lactic Acid Calcium Phosphorus Magnesium Ferritin AST ALT Alkaline Phosphatase Lactate Dehydrogenase Troponin T C-Reactive Protein Total Protein Albumin LDL Cholesterol Direct Urine Creatinine Urine Total Protein Salicylates Acetaminophen Crossmatch 11/13/21 11/13/21 11/13/21 00:13 04:17 04:17 WBC 23.8 H RBC 2.84 L Hgb 7.4 L 7.8 L Hct 23.3 L 24.9 L MCH 27 L RDW 15.4 H Plt Count Lymph % (Auto) [place] % (Auto) Lymph # (Auto) [place] # (Auto) Seg Neutrophils % Seg Neuts % (Manual) Lymphocytes % (Manual) Nucleated RBC % Seg Neutrophils # Seg Neutrophils # Man Monocytes # (Manual) PT INR APTT D-Dimer Heparin Anti-Xa Level ABG pH ABG pO2 ABG HCO3 ABG O2 Saturation ABG Base Excess ABG Hemoglobin Oxyhemoglobin Sodium 146 H Potassium Chloride Carbon Dioxide BUN 44 H Creatinine 1.6 H Glucose 144 H POC Glucose Hemoglobin A1c Lactic Acid Calcium 7.9 L Phosphorus 5.10 H D Magnesium Ferritin AST ALT Alkaline Phosphatase Lactate Dehydrogenase Troponin T C-Reactive Protein Total Protein Albumin LDL Cholesterol Direct Urine Creatinine Urine Total Protein Salicylates Acetaminophen Crossmatch 11/13/21 11/13/21 11/13/21 05:52 10:54 15:57 WBC RBC Hgb Hct MCH RDW Plt Count Lymph % (Auto) [place] % (Auto) Lymph # (Auto) [place] # (Auto) Seg Neutrophils % Seg Neuts % (Manual) Lymphocytes % (Manual) Nucleated RBC % Seg Neutrophils # Seg Neutrophils # Man Monocytes # (Manual) PT INR APTT D-Dimer Heparin Anti-Xa Level ABG pH ABG pO2 ABG HCO3 ABG O2 Saturation ABG Base Excess ABG Hemoglobin Oxyhemoglobin Sodium Potassium Chloride Carbon Dioxide BUN Creatinine Glucose POC Glucose 123 H 147 H 207 H Hemoglobin A1c Lactic Acid Calcium Phosphorus Magnesium Ferritin AST ALT Alkaline Phosphatase Lactate Dehydrogenase Troponin T C-Reactive Protein Total Protein Albumin LDL Cholesterol Direct Urine Creatinine Urine Total Protein Salicylates Acetaminophen Crossmatch 11/13/21 11/13/21 11/14/21 16:01 23:18 04:55 WBC 23.9 H RBC 2.86 L Hgb 6.5 L 8.3 L Hct 20.3 L 24.5 L MCH RDW Plt Count Lymph % (Auto) [place] % (Auto) Lymph # (Auto) [place] # (Auto) Seg Neutrophils % Seg Neuts % (Manual) Lymphocytes % (Manual) Nucleated RBC % Seg Neutrophils # Seg Neutrophils # Man Monocytes # (Manual) PT INR APTT D-Dimer Heparin Anti-Xa Level ABG pH ABG pO2 ABG HCO3 ABG O2 Saturation ABG Base Excess ABG Hemoglobin Oxyhemoglobin Sodium Potassium Chloride Carbon Dioxide BUN Creatinine Glucose POC Glucose 209 H Hemoglobin A1c Lactic Acid Calcium Phosphorus Magnesium Ferritin AST ALT Alkaline Phosphatase Lactate Dehydrogenase Troponin T C-Reactive Protein Total Protein Albumin LDL Cholesterol Direct Urine Creatinine Urine Total Protein Salicylates Acetaminophen Crossmatch 11/14/21 11/14/21 11/14/21 04:55 05:09 11:35 WBC RBC Hgb Hct MCH RDW Plt Count Lymph % (Auto) [place] % (Auto) Lymph # (Auto) [place] # (Auto) Seg Neutrophils % Seg Neuts % (Manual) Lymphocytes % (Manual) Nucleated RBC % Seg Neutrophils # Seg Neutrophils # Man Monocytes # (Manual) PT INR APTT D-Dimer Heparin Anti-Xa Level ABG pH ABG pO2 ABG HCO3 ABG O2 Saturation ABG Base Excess ABG Hemoglobin Oxyhemoglobin Sodium 148 H Potassium Chloride 109.0 H Carbon Dioxide BUN 42 H Creatinine 1.6 H Glucose 184 H POC Glucose 169 H 154 H Hemoglobin A1c Lactic Acid Calcium 8.0 L Phosphorus Magnesium Ferritin AST ALT Alkaline Phosphatase Lactate Dehydrogenase Troponin T C-Reactive Protein Total Protein Albumin LDL Cholesterol Direct Urine Creatinine Urine Total Protein Salicylates Acetaminophen Crossmatch 11/14/21 11/14/21 11/15/21 16:57 23:11 04:36 WBC RBC Hgb Hct MCH RDW Plt Count Lymph % (Auto) [place] % (Auto) Lymph # (Auto) [place] # (Auto) Seg Neutrophils % Seg Neuts % (Manual) Lymphocytes % (Manual) Nucleated RBC % Seg Neutrophils # Seg Neutrophils # Man Monocytes # (Manual) PT INR APTT D-Dimer Heparin Anti-Xa Level ABG pH ABG pO2 ABG HCO3 ABG O2 Saturation ABG Base Excess ABG Hemoglobin Oxyhemoglobin Sodium 151 H Potassium Chloride 111.2 H Carbon Dioxide BUN 36 H Creatinine 1.3 H Glucose 136 H POC Glucose 124 H 118 H Hemoglobin A1c Lactic Acid Calcium 8.1 L Phosphorus Magnesium Ferritin AST ALT Alkaline Phosphatase Lactate Dehydrogenase Troponin T C-Reactive Protein Total Protein Albumin LDL Cholesterol Direct Urine Creatinine Urine Total Protein Salicylates Acetaminophen Crossmatch 11/15/21 11/15/21 11/16/21 11:18 21:49 00:15 WBC RBC Hgb Hct MCH RDW Plt Count Lymph % (Auto) [place] % (Auto) Lymph # (Auto) [place] # (Auto) Seg Neutrophils % Seg Neuts % (Manual) Lymphocytes % (Manual) Nucleated RBC % Seg Neutrophils # Seg Neutrophils # Man Monocytes # (Manual) PT INR APTT D-Dimer Heparin Anti-Xa Level ABG pH ABG pO2 ABG HCO3 ABG O2 Saturation ABG Base Excess ABG Hemoglobin Oxyhemoglobin Sodium Potassium Chloride Carbon Dioxide BUN Creatinine Glucose POC Glucose 154 H 154 H 146 H Hemoglobin A1c Lactic Acid Calcium Phosphorus Magnesium Ferritin AST ALT Alkaline Phosphatase Lactate Dehydrogenase Troponin T C-Reactive Protein Total Protein Albumin LDL Cholesterol Direct Urine Creatinine Urine Total Protein Salicylates Acetaminophen Crossmatch 11/16/21 11/16/21 11/16/21 05:11 05:11 05:37 WBC 18.2 H RBC 2.92 L Hgb 8.3 L Hct 26.1 L MCH RDW 15.8 H Plt Count Lymph % (Auto) 6.3 L [place] % (Auto) 10.2 H Lymph # (Auto) [place] # (Auto) 1.9 H Seg Neutrophils % 81.7 H Seg Neuts % (Manual) Lymphocytes % (Manual) Nucleated RBC % Seg Neutrophils # 14.9 H Seg Neutrophils # Man Monocytes # (Manual) PT INR APTT D-Dimer Heparin Anti-Xa Level ABG pH ABG pO2 ABG HCO3 ABG O2 Saturation ABG Base Excess ABG Hemoglobin Oxyhemoglobin Sodium 146 H Potassium Chloride 108.0 H Carbon Dioxide BUN 25 H Creatinine Glucose 123 H POC Glucose 109 H Hemoglobin A1c Lactic Acid Calcium 7.8 L Phosphorus Magnesium Ferritin AST ALT Alkaline Phosphatase Lactate Dehydrogenase Troponin T C-Reactive Protein Total Protein Albumin LDL Cholesterol Direct Urine Creatinine Urine Total Protein Salicylates Acetaminophen Crossmatch 11/16/21 11/16/21 11/17/21 11:22 23:55 04:33 WBC RBC Hgb Hct MCH RDW Plt Count Lymph % (Auto) [place] % (Auto) Lymph # (Auto) [place] # (Auto) Seg Neutrophils % Seg Neuts % (Manual) Lymphocytes % (Manual) Nucleated RBC % Seg Neutrophils # Seg Neutrophils # Man Monocytes # (Manual) PT INR APTT D-Dimer Heparin Anti-Xa Level ABG pH ABG pO2 ABG HCO3 ABG O2 Saturation ABG Base Excess ABG Hemoglobin Oxyhemoglobin Sodium Potassium Chloride Carbon Dioxide BUN 20 H Creatinine Glucose POC Glucose 136 H 113 H Hemoglobin A1c Lactic Acid Calcium 7.5 L Phosphorus Magnesium Ferritin AST ALT Alkaline Phosphatase Lactate Dehydrogenase Troponin T C-Reactive Protein Total Protein Albumin LDL Cholesterol Direct Urine Creatinine Urine Total Protein Salicylates Acetaminophen Crossmatch 11/17/21 11/18/21 11/18/21 23:22 04:53 04:53 WBC 13.0 H RBC 2.99 L Hgb 8.5 L Hct 26.4 L MCH RDW Plt Count Lymph % (Auto) 9.5 L [place] % (Auto) 9.8 H Lymph # (Auto) [place] # (Auto) 1.3 H Seg Neutrophils % 78.3 H Seg Neuts % (Manual) Lymphocytes % (Manual) Nucleated RBC % Seg Neutrophils # 10.2 H Seg Neutrophils # Man Monocytes # (Manual) PT INR APTT D-Dimer Heparin Anti-Xa Level ABG pH ABG pO2 ABG HCO3 ABG O2 Saturation ABG Base Excess ABG Hemoglobin Oxyhemoglobin Sodium Potassium Chloride Carbon Dioxide BUN 18 H Creatinine Glucose 106 H POC Glucose 112 H Hemoglobin A1c Lactic Acid Calcium 8.1 L Phosphorus Magnesium Ferritin AST ALT Alkaline Phosphatase Lactate Dehydrogenase Troponin T C-Reactive Protein Total Protein Albumin LDL Cholesterol Direct Urine Creatinine Urine Total Protein Salicylates Acetaminophen Crossmatch 11/18/21 11/18/21 11/19/21 11:35 17:42 14:38 WBC RBC Hgb Hct MCH RDW Plt Count Lymph % (Auto) [place] % (Auto) Lymph # (Auto) [place] # (Auto) Seg Neutrophils % Seg Neuts % (Manual) Lymphocytes % (Manual) Nucleated RBC % Seg Neutrophils # Seg Neutrophils # Man Monocytes # (Manual) PT INR APTT D-Dimer Heparin Anti-Xa Level ABG pH ABG pO2 ABG HCO3 ABG O2 Saturation ABG Base Excess ABG Hemoglobin Oxyhemoglobin Sodium Potassium Chloride 97.5 L Carbon Dioxide 31 H BUN Creatinine Glucose 146 H POC Glucose 143 H 132 H Hemoglobin A1c Lactic Acid Calcium Phosphorus Magnesium 1.60 L Ferritin AST ALT Alkaline Phosphatase Lactate Dehydrogenase Troponin T C-Reactive Protein Total Protein Albumin LDL Cholesterol Direct Urine Creatinine Urine Total Protein Salicylates Acetaminophen Crossmatch 11/19/21 11/19/21 11/20/21 16:24 23:58 07:42 WBC RBC 3.01 L Hgb 8.6 L Hct 26.7 L MCH RDW 15.4 H Plt Count Lymph % (Auto) [place] % (Auto) Lymph # (Auto) [place] # (Auto) Seg Neutrophils % Seg Neuts % (Manual) Lymphocytes % (Manual) Nucleated RBC % Seg Neutrophils # Seg Neutrophils # Man Monocytes # (Manual) PT INR APTT D-Dimer Heparin Anti-Xa Level ABG pH ABG pO2 ABG HCO3 ABG O2 Saturation ABG Base Excess ABG Hemoglobin Oxyhemoglobin Sodium Potassium Chloride Carbon Dioxide BUN Creatinine Glucose POC Glucose 129 H 125 H Hemoglobin A1c Lactic Acid Calcium Phosphorus Magnesium Ferritin AST ALT Alkaline Phosphatase Lactate Dehydrogenase Troponin T C-Reactive Protein Total Protein Albumin LDL Cholesterol Direct Urine Creatinine Urine Total Protein Salicylates Acetaminophen Crossmatch 11/20/21 11/20/21 07:42 11:25 WBC RBC Hgb Hct MCH RDW Plt Count Lymph % (Auto) [place] % (Auto) Lymph # (Auto) [place] # (Auto) Seg Neutrophils % Seg Neuts % (Manual) Lymphocytes % (Manual) Nucleated RBC % Seg Neutrophils # Seg Neutrophils # Man Monocytes # (Manual) PT INR APTT D-Dimer Heparin Anti-Xa Level ABG pH ABG pO2 ABG HCO3 ABG O2 Saturation ABG Base Excess ABG Hemoglobin Oxyhemoglobin Sodium Potassium Chloride Carbon Dioxide 31 H BUN Creatinine Glucose POC Glucose 116 H Hemoglobin A1c Lactic Acid Calcium Phosphorus Magnesium Ferritin AST ALT Alkaline Phosphatase Lactate Dehydrogenase Troponin T C-Reactive Protein Total Protein Albumin LDL Cholesterol Direct Urine Creatinine Urine Total Protein Salicylates Acetaminophen Crossmatch Allied health notes reviewed: nursing
--- NOTE | 2021-11-20 20:50 | Progress Note ---
Assessment and Plan Assessment and plan: 66 YO Female with Obesity was attending [facility] services when the patient collapsed and lost consciousness. Witnesses began CPR. EMS was notified and upon arrival the patient was found to be in distress without perfusing cardiac rhythm. Patient initiated on ACLS protocol and subsequently intubated in the field and transported to ED. The patient regained spontaneous circulation during transport. She was found to have acute hypoxemic respiratory failure, septic shock suspected secondary to aspiration pneumonia, metabolic acidosis, toxic metabolic encephalopathy, shock liver, and cardiac arrest with return of perfusing cardiac rhythm after initiation of ACLS protocol. Patient initiated on sepsis protocol as well as pneumonia protocol. Patient admitted to ICU. No reports of fever, chills, chest pain, palpitation, productive cough, skin rash, recent contact, known exposure to COVID-19. Patient improved, extubated on 11/11 and transferred to floor on 11/19. s/p cardiac arrest, collapse at [facility], HFrEF, shock/hypotension resolved Atrial fibrillation/atrial flutter -Cardiac arrest and collapse at [facility] with ROSC -Cardiology consulted, appreciate recommendations - S/p Cardizem gtt- d/c due to low EF; now on PO Amio -s/p vasopressor support with levophed -Echocardiogram shows left ventricular systolic function severely decreased, L VEF 25 to 30%, no pericardial effusion -proBNP 5622 -Continue Lasix 20 mg twice daily, BB, spironolactone, losartan -No significant volume overload clinically Acute hypoxic respiratory failure, right pneumothorax, Angioedema (resolved), pulmonary edema -CCM consulted, appreciate recommendations -Intubated on 10/29 and extubated on 11/11 -Bipap q HS and prn, at high risk for KOLBY with morbid obesity -NC during day -s/p right chest tube for pneumothorax -s/p steroids for angioedema -On Lasix for pulmonary edema. transaminitis likely shocked liver - resolved Acute kidney injury likely secondary to vasomotor nephropathy, hypernatremia -Nephrology consulted, appreciate recommendations -Krishna replaced 11/05 urinary retention -FeNa 0.05 indicating pre-renal -SIERRA and hyponatremia resolved. Creatinine 1.0 on Lasix IV Shock cardiogenicsuspected sepsis -Fever was as high as 102 with a leukocytosis Blood, urine and sputum cultures negative -COVID-19 PCR negative -S/p empiric antibiotic therapy for possible pneumonia with Rocephin and azithromycin () -S/p Levophed gtt for hypotension -Fever and leukocytosis resolved -Monitor WBC and temperature curve Acute Metabolic encephalopathy, agitation/anxiety -Etiology likely from a cardiac arrest, shock and cerebral hypoperfusion CT head no acute focal parenchymal lesion in the brain -Neurology consulted, appreciate recommendations -EEG and MRI noted, Neuro recommend to cut down on sedation as possible Mental status significantly improved, currently fairly alert and oriented. Answers appropriately. Acute DVT in the left posterior tibial vein and bilateral peroneal veins, Anemia, retroperitoneal bleed -D-dimer greater than 10,000 -CTA chest with no evidence of PE -Bilateral lower extremity ultrasound positive for DVT -Heparin gtt on hold d/t anemia -vasuclar surgery consulted, appreciate recommendations -recommended multiphasic CT angio of the abdomen and pelvis with and without contrast if H/H drops and does not recommend IVC filter at this time as the DVTs are infrapopliteal and recommends a DVT study weekly for 2 weeks -Trend CBC -SCDs to BLE while in bed -Transfuse hemoglobin less than 7 -Monitor for signs of bleeding -Hemoglobin stable, 8.6 Hypertension, not able be controlled Increase losartan 200 mg daily and add hydralazine as needed. Hyperglycemia ,resolved) -Avoid hypoglycemia -Hbg A1C 6.7 -SSI and lantus q hs (titrate as needed) -Accu-Cheks q. 6 Morbid obesity High risk for KOLBY On nightly BiPAP Deconditioning PT/OT Discussed the patient and the nursing staff. Hospital Course to Date: 10/30: Intubated and sedated, on fentanyl gtt. Open eyes spontaneously but does not follow any commands. On vasopressors, titrate as tolerated for MAP above 65. Patient febrile overnight, continue empiric IV Abx, culture data and COVID PCR pending. Patient is also s/p CT placement due to spontaneous pneumothorax. 2D echo is pending and Cardiology is consulted. 10/31: Patient remains intubated and following commands. Levophed drip stopped and potassium repleted. Patient started on tube feeding. Remains in soft bilateral restraints. 11/01: RN noted ST changes on BSM and 12 lead EKG obtained which showed ST. Given Ativan 1mg for agitation as she is maxed on fentanyl drip and IV push fentanyl did not seem to help. Patient was started on CPAP this morning by RT but alexei ined on fentanyl drip and was having periods of apnea. Plan was to retry CPAP again in the p.m. with sedation off. 11/02: Rate increased r/t hypercapnea on ABG, sedation reduced. Given kionex for hyperkalemia and was started on levophed overnight for hypotension. 11/03: Overnight patient had tachycardia and was given Cardizem and Lopressor. Lopressor was repeated in the a.m. due to tachycardia. Patient will be started on amiodarone with a bolus per cardiology. Patient started on normal saline per liter per [facility] and steroids for angioedema. Noted to have bright red blood when suctioned from oh ETT. Remains on heparin drip as H/H is stable for now. Will reevaluate. Fentanyl drip was restarted last night due to agitation. Dr. Flores updated family today 11/04: Patient was sedated on fentanyl however off sedation is able to follow commands, a.m. labs completed in the p.m. and show hyperkalemia with increased renal function studies. Nephrology, neurology consulted by [facility]. Given Yandy exalate, insulin and D50 for hyperkalemia. Patient remains on amiodarone. 11/05: Patient needed to be sedated on fentanyl again to today. overnight krishna was replaced. Hyperkalemia->given kionex 60 for 5.6. Repeat K 6-> Dr. Grant informed and requested bumex, kionex, insulin, d50, calcium gluconate and sodium bicarb with repeat BMP in 2 hours which were placed. HR remains elevated. 11/06: Patient remained in atrial fibrillation/atrial flutter with heart rate in the 150s despite being on amnio drip and was given amnio bolus, Cardizem bolus and started on Cardizem drip by cardiology. Patient is on beta-blockers p.o. scheduled and to feedings changed to Nepro. Kayexalate was given in the morning by nephrology due to hyperkalemia. 11/07: Patient is only responsive to mild stimuli, precedex added in an attempt to wean off fentanyl gtt to better assess her mental status. Neurology also on c onsult, pending MRI and EEG. Patient remains in Aflutter this am, HR in the 80 to 90s, still on amiodarone and heparin gtt. 11/08: Fentanyl gtt is off, only on precedex gtt. Patient is still not following any commands. MRI brain and EEG completed. Neuro recommendations noted, sedatives agents decreased. FWF added for hypernatremia and low K repleted, repeat labs ordered. Placed a call and spoke with patient's daughter, Eva Brown . She was updated on patient's conditions and status. All questions and concerns were voiced at this time. 11/09: Patient is awake and alert this am, following commands and appropriate. Remains on precedex gtt, plan for possible PST today. Hypertensive overnight, meds adjusted by Cardio and PRN Hydralazine added for SBP greater than 160. CT dislodged overnight, CXR is stable with no significant change. F/U CXR in the am. Patient's daughter, Eva Brown, visited with patient. She was updated on patient's status and goal of care for today. All questions and concerns were voiced at this time. 11/10: Mentation remains intact, still on precedex gtt. This am CXR noted still with fluid overload s/p X1 dose of IV lasix, good response from IV lasix overnight. Hypernatremia improved, D5W d/dayday. Still with persistent hypokalemia, continue electrolytes replacement and frequent lab check. Daily IV lasix and aldactone added by Cardio. Patient is also with persistent low grade fevers overnight, leukocytosis with mild improvement this am. Will get a repeat sputum culture, hold off on IV abx for now. Consider ID consult if fevers and leukocytosis persist. Patient tolerated PST X4hrs yesterday. PST again today, plan to wean to extubate if tolerated. 11/11: IAM overnight. Off precedex gtt and tolerated PST this am. Plan to wean to extubate today. Additional IV lasix given, plan to keep patient at a net negative balance for better lung compliance. F/U CXR in the am. K improved this am, repeat BMP this afternoon since diuresing. Remains with low grade fevers, leukocytosis downtrending, will continue to monitor. Speech/PT/OT ordered 11/12: S/p extubation, now stable on 3L NC. This am CXR noted with no significant changes, lasix changed to IV X4days BID. Drop in H&H this am, and Lt. flank ecchymosis noted. Heparin gtt on hold for now and orders placed for 1 unit of PRBCs and Ct Abd/Pelvis w/o con to r/o retroperitoneal bleed. Pending speech swallow eval, keep patient NPO for now. Patient is stable for IMCU status 11/13: Patient with increased WOB and tachycardia this am, patient was placed on Bipap and precedex gtt was resumed. CXR with mild improvement. CT Abd/Pelvis also reviewed large hematomas noted at the Lt. retroperitoneum and left posterior lateral abdominal wall. Heparin gtt is already on hold, patient is hemodynamically stable. Vascular Surgery consulted for possible IVC filter eval. Patient s/p 2units of PRBCs, will continue to trend H&H and transfuse if hbg is less than 7. Worsening renal function this am, IF diuretic on hold for now. Patient is also febrile with spike in wbcs most likely reactive to bleed, will panculture and hold off on IV Abx for now. Patient also failed speech bedside swallow eval yesterday, NGT in placed plan to resume enteral nutrition 11/14: Patient had bilateral lower extremity Doppler ultrasound and vascular surgery has recommended multiphasic CT angio of the abdomen and pelvis with and without contrast if H/H drops and does not recommend IVC filter at this time as the DVTs are infrapopliteal and recommends a DVT study weekly for 2 weeks. FWF 250 q4 ml per nephro. Started on as needed Xanax and p.o. amiodarone. She did not pass her ST evaluation today. Will be transferred to [facility]. 11/15: Resting comfortably on encounter. Speech cleared for pureed diet. Remains on 3l satting 98 % on bedside encounter. Does not appear to be in respiratory distress. Will continue to hold AC, No ivc filter planned at this time. qweekly doppler to monitor for migration of DVT per vascular. If demonstrated, will consider IVC filter. CBC ordered for tomorrow, will continue monitoring in light of retroperitoneal hematoma. FWF increased by nephrology to 350cc q4hr d/t hypernatremia. UOP/renal function both improved. D/w cardiology, will continue amiodorone an additional 24hrs. Plan to change dosing of metoprolol. Continue to wean off of precedex. Continue xanax scheduled for anxiety. physical therapy recs noted, fernanda / ltac will discuss with CM. Continue IMCU monitoring. 11/16: Pulmonary congestion this AM. CXR ordered. Lasix 40 mg IV x 1 order this AM. Will monitor for 24 hrs. potential downgrade to medical floor tomorrow. 11/17: Persisting pulmonary congestion, was on bipap overnight into this AM. Will order additional lasix 40 mg IV x 2. CXR ordered for AM. Possible downgrade to floor tomorrow. Anticipate d/c sunday. 11/18: Patient seen and examined, continue weaning, will continue diuresis BID, discussed with daughter. 11/19: Patient seen and examined this morning doing well no acute distress noted. Lasix was increased to twice daily to 20 mg IV. Clinically improving. Patient will be transferred to telemetry today can be switched to Lasix p.o. twice daily in a.m. She has her weekly Doppler of lower extremity tomorrow vascular is following for this. She was taken off anticoagulation secondary to retrope ritoneal bleed., The anticoagulation was started initially for atrial fibrillation and an infrapopliteal DVT. During her hospital stay she had a prolonged ventilator management and was successfully weaned off. She also received a total of 4 units of packed red blood cell. Hemoglobin has remained stable. Anticipate discharge in next 48 hours if continues to clinically stay stable. 06/20: Transferred from ICU on 11/19. Progressive improving. Currently awake and oriented. O2 weaned to 4 L. Hemodynamically stable. BP control being optimized. MiraLAX for constipation. Hemoglobin stable on the heparin infusion, being monitored closely with history of retroperitoneal bleed. History Interval history: Patient is alert and oriented, currently on 3 L of O2 by nasal cannula, patient complains of constipation and some mild lower abdominal discomfort as well as some left lower extremity pains with acute DVT. BP is elevated and changed meds. On Lasix 20 mg twice daily with urine output 15 on 5 valve. WBC normalized and creatinine 1.0. She has poor appetite but eating some. Hospitalist Physical - Constitutional Vitals: Temp Pulse Resp BP Pulse Ox 98.9 F 69 18 164/91 96 11/20/21 16:25 11/20/21 16:25 11/20/21 16:25 11/20/21 16:25 11/20/21 16:25 General appearance: Present: no acute distress, obese (Morbidly obese) - EENT Eyes: Present: PERRL, EOM intact ENT: other (Oropharynx crowded) - Neck Neck: Present: supple - Respiratory Respiratory effort: normal Respiratory: bilateral: diminished, negative: rales, rhonchi - Cardiovascular Rhythm: regular - Extremities Extremity abnormal: edema (1 to 2+ pretibial edema) - Abdominal General gastrointestinal: soft, non-tender, normal bowel sounds, other (Very obese) - Integumentary Integumentary: Absent: rash - Psychiatric Psychiatric: other (Mildly anxious) - Neurologic Neurologic: moves all extremities, other (Alert and oriented, no acute distress, speech normal) HEART Score - HEART Score Troponin: Troponin T 1.150 ng/mL (0.00-0.029) H* D 10/29/21 22:34 Results - Labs CBC & Chem 7: 11/20/21 07:42 11/20/21 07:42 Labs: Laboratory Last Values WBC 10.3 K/mm3 (4.5-11.0) 11/20/21 07:42 RBC 3.01 M/mm3 (3.65-5.03) L 11/20/21 07:42 Hgb 8.6 gm/dl (10.1-14.3) L 11/20/21 07:42 Hct 26.7 % (30.3-42.9) L 11/20/21 07:42 MCV 89 fl (79-97) 11/20/21 07:42 MCH 28 pg (28-32) 11/20/21 07:42 MCHC 32 % (30-34) 11/20/21 07:42 RDW 15.4 % (13.2-15.2) H 11/20/21 07:42 Plt Count 331 K/mm3 (140-440) 11/20/21 07:42 Lymph % (Auto) 9.5 % (13.4-35.0) L 11/18/21 04:53 [place] % (Auto) 9.8 % (0.0-7.3) H 11/18/21 04:53 Eos % (Auto) 1.8 % (0.0-4.3) 11/18/21 04:53 Baso % (Auto) 0.6 % (0.0-1.8) 11/18/21 04:53 Lymph # (Auto) 1.2 K/mm3 (1.2-5.4) 11/18/21 04:53 [place] # (Auto) 1.3 K/mm3 (0.0-0.8) H 11/18/21 04:53 Eos # (Auto) 0.2 K/mm3 (0.0-0.4) 11/18/21 04:53 Baso # (Auto) 0.1 K/mm3 (0.0-0.1) 11/18/21 04:53 Add Manual Diff Complete 11/07/21 06:30 Total Counted 100 11/07/21 06:30 Seg Neutrophils % 78.3 % (40.0-70.0) H 11/18/21 04:53 Seg Neuts % (Manual) 77.0 % (40.0-70.0) H 11/07/21 06:30 Band Neutrophils % 1.0 % 11/07/21 06:30 Lymphocytes % (Manual) 11.0 % (13.4-35.0) L 11/07/21 06:30 Reactive Lymphs % (Man) 3.0 % 11/07/21 06:30 Monocytes % (Manual) 2.0 % (0.0-7.3) 11/07/21 06:30 Eosinophils % (Manual) 0 % (0.0-4.3) 11/07/21 06:30 Basophils % (Manual) 0 % (0.0-1.8) 11/07/21 06:30 Metamyelocytes % 1.0 % 11/07/21 06:30 Myelocytes % 5.0 % 11/07/21 06:30 Promyelocytes % 0 % 11/07/21 06:30 Blast Cells % 0 % 11/07/21 06:30 Nucleated RBC % 2.0 % (0.0-0.9) H 11/07/21 06:30 Seg Neutrophils # 10.2 K/mm3 (1.8-7.7) H 11/18/21 04:53 Seg Neutrophils # Man 12.3 K/mm3 (1.8-7.7) H 11/07/21 06:30 Band Neutrophils # 0.2 K/mm3 11/07/21 06:30 Lymphocytes # (Manual) 1.8 K/mm3 (1.2-5.4) 11/07/21 06:30 Abs React Lymphs (Man) 0.5 K/mm3 11/07/21 06:30 Monocytes # (Manual) 0.3 K/mm3 (0.0-0.8) 11/07/21 06:30 Eosinophils # (Manual) 0.0 K/mm3 (0.0-0.4) 11/07/21 06:30 Basophils # (Manual) 0.0 K/mm3 (0.0-0.1) 11/07/21 06:30 Metamyelocytes # 0.2 K/mm3 11/07/21 06:30 Myelocytes # 0.8 K/mm3 11/07/21 06:30 Promyelocytes # 0.0 K/mm3 11/07/21 06:30 Blast Cells # 0.0 K/mm3 11/07/21 06:30 WBC Morphology Not Reportable 11/07/21 06:30 Hypersegmented Neuts Not Reportable 11/07/21 06:30 Hyposegmented Neuts Not Reportable 11/07/21 06:30 Hypogranular Neuts Not Reportable 11/07/21 06:30 Smudge Cells Not Reportable 11/07/21 06:30 Toxic Granulation Not Reportable 11/07/21 06:30 Toxic Vacuolation Not Reportable 11/07/21 06:30 Dohle Bodies Not Reportable 11/07/21 06:30 Pelger-Huet Anomaly Not Reportable 11/07/21 06:30 Manny Rods Not Reportable 11/07/21 06:30 Platelet Estimate Consistent w auto 11/07/21 06:30 Clumped Platelets Not Reportable 11/07/21 06:30 Plt Clumps, EDTA Not Reportable 11/07/21 06:30 Large Platelets 1+ 11/07/21 06:30 Giant Platelets Not Reportable 11/07/21 06:30 Platelet Satelliting Not Reportable 11/07/21 06:30 Plt Morphology Comment Not Reportable 11/07/21 06:30 RBC Morphology Not Reportable 11/07/21 06:30 Dimorphic RBCs Not Reportable 11/07/21 06:30 Polychromasia Not Reportable 11/07/21 06:30 Hypochromasia 1+ 11/07/21 06:30 Poikilocytosis Not Reportable 11/07/21 06:30 Anisocytosis Not Reportable 11/07/21 06:30 Microcytosis Not Reportable 11/07/21 06:30 Macrocytosis Not Reportable 11/07/21 06:30 Spherocytes 1+ 11/07/21 06:30 Pappenheimer Bodies Not Reportable 11/07/21 06:30 Sickle Cells Not Reportable 11/07/21 06:30 Target Cells 1+ 11/07/21 06:30 Tear Drop Cells Not Reportable 11/07/21 06:30 Ovalocytes Not Reportable 11/07/21 06:30 Helmet Cells Not Reportable 11/07/21 06:30 Maradiaga-Hagan Bodies Not Reportable 11/07/21 06:30 [place] Rings Not Reportable 11/07/21 06:30 [place] Cells Not Reportable 11/07/21 06:30 Bite Cells Not Reportable 11/07/21 06:30 Crenated Cell Not Reportable 11/07/21 06:30 Elliptocytes Not Reportable 11/07/21 06:30 Acanthocytes (Spur) Not Reportable 11/07/21 06:30 Rouleaux Not Reportable 11/07/21 06:30 Hemoglobin C Crystals Not Reportable 11/07/21 06:30 Schistocytes Not Reportable 11/07/21 06:30 Malaria parasites Not Reportable 11/07/21 06:30 Magdy Bodies Not Reportable 11/07/21 06:30 Hem Pathologist Commnt No 11/07/21 06:30 PT 17.2 Sec. (12.2-14.9) H 10/30/21 16:30 INR 1.27 (0.87-1.13) H 10/30/21 16:30 APTT 44.4 Sec. (24.2-36.6) H 10/30/21 16:30 D-Dimer > 51961 ng/mlDDU (0-234) H 10/30/21 Unknown Heparin Anti-Xa Level 0.62 U.I./ml (0.3-0.7) 11/12/21 03:30 ABG pH 7.475 pH Units (7.350-7.450) H 11/11/21 13:53 ABG pCO2 45.0 mm Hg 11/11/21 13:53 ABG pO2 64.1 mm Hg (80.0-90.0) L 11/11/21 13:53 ABG HCO3 32.4 mmol/L (20.0-26.0) H 11/11/21 13:53 ABG O2 Saturation 96.3 % (95.0-99.0) 11/11/21 13:53 ABG O2 Content 10.1 (0.0-44) 11/11/21 13:53 ABG Base Excess 8.0 mmol/L (-2.0-3.0) H 11/11/21 13:53 ABG Hemoglobin 7.6 gm/dl (12.0-16.0) L 11/11/21 13:53 ABG Carboxyhemoglobin 1.8 % (0.0-5.0) 11/11/21 13:53 ABG Methemoglobin 0.5 % (0.0-1.5) 11/11/21 13:53 Oxyhemoglobin 94.0 % (95.0-99.0) L 11/11/21 13:53 FiO2 32 % 11/11/21 13:53 Sodium 140 mmol/L (137-145) 11/20/21 07:42 Potassium 3.6 mmol/L (3.6-5.0) 11/20/21 07:42 Chloride 99.3 mmol/L (98-107) 11/20/21 07:42 Carbon Dioxide 31 mmol/L (22-30) H 11/20/21 07:42 Anion Gap 13 mmol/L 11/20/21 07:42 BUN 12 mg/dL (7-17) 11/20/21 07:42 Creatinine 1.0 mg/dL (0.6-1.2) 11/20/21 07:42 Estimated GFR > 60 ml/min 11/20/21 07:42 BUN/Creatinine Ratio 12 % 11/20/21 07:42 Glucose 98 mg/dL (65-100) 11/20/21 07:42 POC Glucose 94 mg/dL (70-105) 11/20/21 16:23 Hemoglobin A1c 6.7 % (4-6) H 10/31/21 04:30 Lactic Acid 0.70 mmol/L (0.7-2.0) 10/31/21 15:45 Calcium 8.4 mg/dL (8.4-10.2) 11/20/21 07:42 Phosphorus 3.10 mg/dL (2.5-4.5) 11/19/21 14:38 Magnesium 1.60 mg/dL (1.7-2.3) L 11/19/21 14:38 Ferritin 208.4 ng/mL (10.0-200.0) H 10/30/21 Unknown Total Bilirubin < 0.20 mg/dL (0.1-1.2) 11/06/21 02:35 AST 21 units/L (5-40) 11/06/21 02:35 ALT 77 units/L (7-56) H 11/06/21 02:35 Alkaline Phosphatase 84 units/L (35-129) 11/06/21 02:35 Ammonia 31.0 umol/L (25-60) 10/29/21 15:10 Lactate Dehydrogenase 469 units/L (91-180) H 10/30/21 Unknown Troponin T 1.150 ng/mL (0.00-0.029) H* D 10/29/21 22:34 C-Reactive Protein 13.40 mg/dL (0.00-1.30) H 10/30/21 Unknown Total Protein 6.3 g/dL (6.3-8.2) 11/06/21 02:35 Albumin 3.0 g/dL (3.9-5) L 11/06/21 02:35 Albumin/Globulin Ratio 0.9 % 11/06/21 02:35 Triglycerides 68 mg/dL (2-149) 10/29/21 19:40 Cholesterol 98 mg/dL (50-199) 10/29/21 19:40 LDL Cholesterol Direct 43 mg/dL (50-130) L 10/29/21 19:40 HDL Cholesterol 50 mg/dL (40-59) 10/29/21 19:40 Cholesterol/HDL Ratio 1.96 % 10/29/21 19:40 Procalcitonin 61.95 ng/mL (<0.15) 10/30/21 Unknown TSH 3.080 mlU/mL (0.270-4.200) 10/29/21 15:10 Urine Color Yellow (Yellow) 11/13/21 08:30 Urine Turbidity Slightly-cloudy (Clear) 11/13/21 08:30 Urine pH 6.0 (5.0-7.0) 11/13/21 08:30 Ur Specific [place] 1.010 (1.003-1.030) 11/13/21 08:30 Urine Protein <15 mg/dl mg/dL (Negative) 11/13/21 08:30 Urine Glucose (UA) Neg mg/dL (Negative) 11/13/21 08:30 Urine Ketones Tr mg/dL (Negative) 11/13/21 08:30 Urine Blood Sm (Negative) 11/13/21 08:30 Urine Nitrite Neg (Negative) 11/13/21 08:30 Urine Bilirubin Neg (Negative) 11/13/21 08:30 Urine Urobilinogen < 2.0 mg/dL (<2.0) 11/13/21 08:30 Ur Leukocyte Esterase Neg (Negative) 11/13/21 08:30 Urine WBC (Auto) < 1.0 /HPF (0.0-6.0) 11/13/21 08:30 Urine RBC (Auto) < 1.0 /HPF (0.0-6.0) 11/13/21 08:30 U Epithel Cells (Auto) < 1.0 /HPF (0-13.0) 11/13/21 08:30 Urine Mucus Few /HPF 10/29/21 18:15 Urine Eosinophils None seen (None Seen) 11/04/21 Unknown Urine Creatinine 190.9 mg/dL (0.1-20.0) H 11/04/21 Unknown Protein/Creatinin Ratio 0.90 11/04/21 Unknown Urine Sodium 10 mmol/L 11/04/21 Unknown Urine Total Protein 172 mg/dL (5-11.8) H 11/04/21 Unknown Salicylates < 0.3 mg/dL (2.8-20.0) L 10/29/21 15:10 Urine Opiates Screen Negative 10/29/21 18:15 Urine Methadone Screen Negative 10/29/21 18:15 Acetaminophen 5.0 ug/mL (10.0-30.0) L 10/29/21 15:10 Ur Barbiturates Screen Negative 10/29/21 18:15 Ur Phencyclidine Scrn Negative 10/29/21 18:15 Ur Amphetamines Screen Negative 10/29/21 18:15 U Benzodiazepines Scrn Negative 10/29/21 18:15 Urine Cocaine Screen Negative 10/29/21 18:15 U Marijuana (THC) Screen Negative 10/29/21 18:15 Drugs of Abuse Note Disclamer 10/29/21 18:15 Plasma/Serum Alcohol < 0.01 % (0-0.07) 10/29/21 15:10 Coronavirus (PCR) Negative (Negative) 10/30/21 Unknown Blood Type O POSITIVE 11/12/21 04:15 Antibody Screen Negative 11/12/21 04:15 Crossmatch See Detail 11/12/21 04:15 Krishna/IV: Voiding Method Indwelling Catheter Active Medications - Current Medications Current Medications: Generic Name Dose Route Start Last Admin Trade Name Freq PRN Reason Stop Dose Admin Acetaminophen 650 mg 10/29/21 17:04 11/12/21 22:53 Acetaminophen 650 Mg Rect Supp [place] 650 mg Q6H PRN Administration Pain MILD(1-3)/Fever >100.5/NIEVES Acetaminophen 650 mg 11/19/21 16:35 11/19/21 16:42 Acetaminophen 325 Mg Tab PO 650 mg Q6HR PRN Administration PAIN Alprazolam 0.25 mg 11/14/21 14:29 11/16/21 05:02 Alprazolam 0.25 Mg Tab PO 0.25 mg Q8H PRN Administration Anxiety Dextrose 0 ml 11/04/21 13:48 11/12/21 05:45 Dextrose 10% *Hypoglycemia IV 50 ml PRN PRN Administration Hypoglycemia Docusate Sodium 100 mg 11/18/21 15:00 11/20/21 13:08 Docusate Sodium 100 Mg Cap PO 100 mg BID RAMON Administration Famotidine 10 mg 11/06/21 10:00 11/20/21 09:41 Famotidine 10 Mg Tab PO 10 mg BID RAMON Administration Furosemide 20 mg 11/18/21 10:00 11/20/21 09:40 Furosemide 20 Mg/2 Ml Inj IV 20 mg BID RAMON Administration Hydralazine HCl 25 mg 11/20/21 14:00 11/20/21 13:07 Hydralazine 25 Mg Tab PO 25 mg Q8HR RAMON Administration Hydrophilic Ointment 1 applic 10/29/21 14:29 11/09/21 08:51 Lip Therapy Vaseline TP 1 applic Q2HR PRN Administration Dry Lips Insulin Human Lispro 0 unit 10/30/21 16:00 11/20/21 17:15 Insulin Lispro 100 Unit/Ml SUB-Q Not Given Q6HR [facility] Protocol Lactulose 20 gm 11/18/21 14:43 11/18/21 15:06 Lactulose 20 Gm/30 Ml Oral Liqd PO 20 gm Q6H PRN Administration Constipation Losartan Potassium 50 mg 11/20/21 11:00 11/20/21 11:06 Losartan 25 Mg Tab PO Not Given BID RAMON Metoprolol Tartrate 100 mg 11/16/21 22:00 11/20/21 09:41 Metoprolol Tartrate 100 Mg Tab PO 100 mg BID RAMON Administration Multi-Ingred Cream/Lotion/Oil/Oint 1 applic 10/29/21 14:29 11/06/21 09:25 Mineral Oil/Petrolatum, White Ophth Oint 3.5 Gm OU 1 applic Q4HR PRN Administration Dry Eye(s) Polyethylene Glycol 17 gm 11/20/21 12:47 11/20/21 13:07 Polyethylene Glycol 3350 17 Gm Powder PO 17 gm QDAY PRN Administration Constipation Senna/Docusate Sodium 1 tab 11/16/21 22:00 11/20/21 13:08 Sennosides/Docusate Sodium 8.6/50 Mg Tab PO 1 tab BID RAMON Administration Sodium Chloride 10 ml 10/29/21 22:00 11/20/21 09:40 Sodium Chloride 0.9% 10 Ml Flush Syringe IV 10 ml BID RAMON Administration Sodium Chloride 10 ml 10/29/21 17:04 Sodium Chloride 0.9% 10 Ml Flush Syringe IV PRN PRN LINE FLUSH Spironolactone 25 mg 11/10/21 10:00 11/20/21 09:41 Spironolactone 25 Mg Tab PO 25 mg QDAY RAMON Administration Nutrition/Malnutrition Assess - Dietary Evaluation Nutrition/Malnutrition Findings: Nutrition Notes Start: 10/30/21 09:50 Freq: Status: Active Protocol: Document 11/17/21 14:55 MEENU (Rec: 11/17/21 15:13 MEENU [id number]) Nutrition Notes Current Diagnosis Sepsis,Hypertension, Respiratory Failure Other Pertinent Diagnosis s/p Cardiac Arrest, DVT, Anemia, Pneumonia, Pneumothorax, P Edema, HFrEF.. . Current Diet Pureed Diet (since L 11/15). Height 5 ft 10 in Weight 112 kg [place] Body Weight (kg) 68.18 BMI 35.4 Weight change and time frame No body weight change reported in 2 days. Weight Status Obese Subjective/Other Information RD consulr for routine F/U on Diet tolerance/advancement. Reports on Pt's PO intake show that pt has a preference for Dinner (100%), that Breakfast or Lunch (0-50%), according to ADL notes. Plans for discharge Pt on . Percent of energy/protein needs met: Prescribed Pureed Diet provides for energy/protein needs (1,804 Kcal/77 g) during LOS. #1 Nutrition Diagnosis Inadequate oral intake Comments: Reports on Pt's PO intake show that pt has a preference for Dinner (100%), that Breakfast or Lunch (0-50%), according to ADL notes. Diagnosis Progress(for reassessment Improved documentation) Is patient on ventilator? No Is Patient Ambulatory and/or Out of Bed No REE-([facility]-confined to bed) 7.388 Kcal/Kg value to use for calculation 15 Approximate Energy Requirements Using 1680 kcal/Kg Calculation Used for Recommendations Kcal/kg Additional Notes Protein: 0.8-1.2 g/Kg IBW; 70- 105 g/day. Fluids: 1 ml/Kcal, or as per MD. Nutrition Intervention Change Diet Order: Continue Pureed Diet. Goal #1 Maintain body weight within +/ -3% of admission body weight during LOS. Goal #2 Facilitate PO intake of meals with mechanical modification during LOS. Follow-Up By: 11/24/21 Additional Comments Continue monitoring food tolerance, %PO intake of meals , and BM.
[2021-11-20] MEDS: ALPRAZolam 0.25 MG TAB PO PRN (22:00)
[2021-11-21] MEDS: INSULIN LISPRO 100 UNIT/ML SUB-Q SCH ×4 (06:19→18:00)
[2021-11-21] MEDS: hydrALAZINE 25 MG TAB PO SCH ×3 (06:20→21:44)
[2021-11-21] MEDS: FAMOTIDINE 10 MG TAB PO SCH ×2 (10:46→21:43)
[2021-11-21] MEDS: LOSARTAN 25 MG TAB PO SCH ×2 (10:46→21:44)
[2021-11-21] MEDS: SPIRONOLACTONE 25 MG TAB PO SCH (10:47)
[2021-11-21] MEDS: METOPROLOL TARTRATE 100 MG TAB PO SCH ×2 (10:47→21:44)
[2021-11-21] MEDS: DOCUSATE SODIUM 100 MG CAP PO SCH ×2 (10:48→21:45)
[2021-11-21] MEDS: FUROSEMIDE 20 MG/2 ML INJ IV SCH ×2 (10:48→21:43)
[2021-11-21] MEDS: SENNOSIDES/DOCUSATE SODIUM 8.6/50 MG TAB PO SCH ×2 (10:49→21:43)
[2021-11-21] MEDS: ACETAMINOPHEN 325 MG TAB PO PRN (12:08)
[2021-11-21] MEDS: ALPRAZolam 0.25 MG TAB PO PRN (12:09)
--- NOTE | 2021-11-21 15:12 | Progress Note ---
Assessment and Plan Patient is a 66-year-old female with unknown past medical history brought into the ED following outside of hospital cardiac arrest thought to be PEA with thought to have downtime of 7 to 9 minutes however details are unclear S/P PEA cardiopulmonary arrest-No longer on pressors Acute hypoxic respiratory failure-pulm following Septic shock Aspiration pneumonia Atrial flutter w/ RVR- currently sinus rhythm Pneumothorax- s/p CT Acute DVT-on Heparin gtt Hypokalemia Transaminitis Retroperitoneal Hematoma Echo 10/30/2021-technically difficult study due to body habitus. EF 25 to 30%. Right ventricular systolic function is normal. No pericardial effusion Plan: Continue metoprolol 100 mg p.o. twice daily and losartan 25 mg p.o. daily Heparin gtt is on hold in the setting of anemia requiring pRBC transfusion (secondary to retroperitoneal hematoma) Continue present management Patient seen in conjunction with Dr. Cueto who agrees with this plan of care - Patient Problems (1) Cardiopulmonary arrest Current Visit: Yes Status: Acute (2) Hypokalemia Current Visit: Yes Status: Acute (3) Transaminitis Current Visit: Yes Status: Acute (4) Aspiration pneumonia Current Visit: Yes Status: Acute (5) Acute hypoxemic respiratory failure Current Visit: Yes Status: Acute (6) Septic shock Current Visit: Yes Status: Acute (7) Toxic metabolic encephalopathy Current Visit: Yes Status: Acute (8) Shock liver Current Visit: Yes Status: Acute Subjective Date of service: 11/21/21 Principal diagnosis: AHRF; Cardiac arrest; R. pneumothorax; pneumonia; AMS; DVT's; SIERRA; Obesity Interval history: Patient resting in bed in no acute distress. Patient currently on nasal cannula Patient sinus rate trending 80s Objective Vital Signs Temp Pulse Pulse Resp BP Pulse Ox 11/21/21 14:28 70 153/62 11/21/21 10:51 97.3 F L 17 148/83 11/21/21 10:47 77 146/76 11/21/21 10:46 77 146/62 11/21/21 08:41 98 11/21/21 07:52 97.3 F L 71 16 169/96 100 11/21/21 05:00 70 11/21/21 04:26 97.4 F L 70 22 140/83 100 11/21/21 04:09 103 H 24 100 11/21/21 00:00 77 18 97 11/20/21 23:01 98.2 F 74 18 150/86 100 11/20/21 22:13 77 24 100 11/20/21 21:25 98 11/20/21 19:45 97.3 F L 76 18 155/93 99 11/20/21 16:25 98.9 F 69 18 164/91 96 - Physical Examination General: No Apparent Distress HEENT: Positive: EOMI, Normocephaly Neck: Positive: trachea midline. Negative: JVD/HJR Cardiac: Positive: Reg Rate and Rhythm Lungs: Positive: Decreased Breath Sounds Neuro: Positive: Grossly Intact Abdomen: Positive: Soft Skin: Negative: Rash Musculoskeletal: No Pain Extremities: Present: upper extr. pulses, edema, warm - Imaging and Cardiology EKG: report reviewed, image reviewed Echo: report reviewed - Telemetry EKG Rhythm: Sinus Rhythm - EKG Sinus rhythms and dysrhythmias: sinus rhythm Ventricular dysrhythmias: ventricular premature com Repolarization changes or abnormalities: nonspecific abnormality, ST segment, and/or T wave Myocardial infarction: septal WI (old age or ind - Allied health notes Allied health notes reviewed: nursing
--- NOTE | 2021-11-21 15:19 | Event Note ---
Date: 11/21/21 Reviewed ultrasound results. The infrapopliteal vein thrombosis has propagated to the left popliteal vein. Discussed with Dr. Henderson and the risk of re-bleeding outweighs the benefit from anticoagulation. NPO after MN except sips of water with meds. Possible IVC filter tomorrow.
--- NOTE | 2021-11-21 15:21 | Event Note ---
Date: 11/21/21 Reviewed sandra
--- NOTE | 2021-11-21 15:50 | Vascular Lab Report ---
DUPLEX DOPPLER LOWER EXTREMITY VEINS, BILATERAL INDICATION / CLINICAL INFORMATION: dvt. reassess. Inability to anticoagulate.. TECHNIQUE: Duplex doppler imaging was performed through the veins of both lower extremities using karely ous compression and other maneuvers. COMPARISON: Bilateral lower extremity venous Doppler 11/13/2021. FINDINGS: RIGHT COMMON FEMORAL VEIN: Negative. RIGHT FEMORAL VEIN: Negative. RIGHT POPLITEAL VEIN: Negative. RIGHT CALF VEINS: Occlusive thrombus is visualized within the peroneal veins. LEFT COMMON FEMORAL VEIN: Negative. LEFT FEMORAL VEIN: Negative. LEFT POPLITEAL VEIN: Near occlusive thrombus. LEFT CALF VEINS: Occlusive thrombus. ADDITIONAL FINDINGS: Small left Alejo's cyst is again visualized. IMPRESSION: 1. Acute occlusive thrombus is now visualized within the right peroneal veins. 2. There is propagation of the left calf DVT into the popliteal vein on today's exam (near occlusive) . The results were communicated by the industrial analyst to MALINI Mendes at 1410. Scribed by: Susie Marie RDMS, RVT, [email or web address] Scribed: 11/21/2021 2:40 PM I have reviewed the images, agree with this report, and edited this report as needed. Signer Name: Balaji Rice MD Signed: 11/21/2021 3:46 PM Workstation Name: [email or web address]
--- NOTE | 2021-11-21 18:20 | Progress Note ---
Assessment and Plan 66 YO Female with Obesity presents to ED for evaluation. Patient is intubated and on ventilatory support . Patient was attending [facility] services when the patient collapsed and lost consciousness. Witnesses began CPR. EMS was notified and upon arrival the patient was found to be in distress without perfusing cardiac rhythm. Patient initiated on ACLS protocol and subsequently intubated in the field and subsequent transported to [facility] for further care and evaluation of the aforementioned symptoms. The patient regained spontaneous ci rculation during transport. Patient seen and evaluated upon arrival and found to have acute hypoxemic respiratory failure, septic shock suspected secondary to aspiration pneumonia, metabolic acidosis, toxic metabolic encephalopathy, shock liver, and cardiac arrest with return of perfusing cardiac rhythm after initiation of ACLS protocol. Patient initiated on sepsis protocol as well as pneumonia protocol. Patient admitted to ICU. No reports of fever, chills, chest pain, palpitation, productive cough, skin rash, recent contact, known exposure to COVID-19. Patient has history of diabetes and hypertension. According to the chart review, patient has no history of smoking, alcohol or drug abuse. Patient eventually extubated. Patient transfered to Telemetry. Patient presently on 2 litres O2. O2 saturation 97%. BIPAP 18/8, Rate 14, FIO2 30% stand by in the room. Patient Obese , awake. No acute respiratory distress. Patient afebrile. No leukocytosis. Blood pressure 159/90, pulse 102, Respirations 18. Chest xray done 11/18/21 reported Improving interstitial edema. Bilateral duplex study of legs 11/21/21 reported Acute occlusive thrombus is now visualized within the right peroneal veins. There is propagation of the left calf DVT into the popliteal vein on today's exam (near occlusive). Patient presently on Lasix and famotidine. Recommend anticoagulation with I/V Heparin if no Contraindications. - Patient Problems (1) Acute hypoxemic respiratory failure Current Visit: Yes Status: Acute Plan to address problem: Patient presently on 2 litres O2. O2 saturation 97%. BIPAP 18/8, rate 14, FIO2 30% stand by in the room. Recommend DVT prophylaxis, SCDs Continue famotidine. (2) Acute metabolic encephalopathy Current Visit: Yes Status: Acute Plan to address problem: Management as per primary care. (3) Atrial fibrillation and flutter Current Visit: Yes Status: Acute Plan to address problem: Management as per cardiology. (4) Acute kidney injury Current Visit: Yes Status: Acute Plan to address problem: Management as per nephrology. Subjective Date of service: 11/21/21 Principal diagnosis: AHRF; Cardiac arrest; R. pneumothorax; pneumonia; AMS; DVT's; SIERRA; Obesity Interval history: 66 YO Female with Obesity presents to ED for evaluation. Patient is intubated and on ventilatory support . Patient was attending [facility] services when the patient collapsed and lost consciousness. Witnesses began CPR. EMS was notified and upon arrival the patient was found to be in distress without perfusing cardiac rhythm. Patient initiated on ACLS protocol and subsequently intubated in the field and subsequent transported to [facility] for further care and evaluation of the aforementioned symptoms. The patient regained spontaneous circulation during transport. Patient seen and evaluated upon arrival and found to have acute hypoxemic respiratory failure, septic shock suspected secondary to aspiration pneumonia, metabolic acidosis, toxic metabolic encephalopathy, shock liver, and cardiac arrest with return of perfusing cardiac rhythm after initiation of ACLS protocol. Patient initiated on sepsis protocol as well as pneumonia protocol. Patient admitted to ICU. No reports of fever, chills, chest pain, palpitation, productive cough, skin rash, recent contact, known exposure to COVID-19. Patient has history of diabetes and hypertension. According to the chart review, patient has no history of smoking, alcohol or drug abuse. Patient eventually extubated. Patient transfered to Telemetry. Patient presently on 2 litres O2. O2 saturation 97%. BIPAP 18/8, Rate 14, FIO2 30% stand by in the room. Patient Obese , awake. No acute respiratory distress. Patient afebrile. No leukocytosis. Blood pressure 159/90, pulse 102, Respirations 18. Chest xray done 11/18/21 reported Improving interstitial edema. Bilateral duplex study of legs 11/21/21 reported Acute occlusive thrombus is now visualized within the right peroneal veins. There is propagation of the left calf DVT into the popliteal vein on today's exam (near occlusive). Patient presently on Lasix and famotidine. Recommend anticoagulation with I/V Heparin if no Contraindications. Objective Vital Signs - 12hr 11/21/21 11/21/21 11/21/21 07:52 08:41 10:46 Temperature 97.3 F L Pulse Rate 71 77 Respiratory 16 Rate Blood Pressure 169/96 146/62 O2 Sat by Pulse 100 98 Oximetry 11/21/21 11/21/21 11/21/21 10:47 10:51 14:28 Temperature 97.3 F L Pulse Rate 77 70 Respiratory 17 Rate Blood Pressure 146/76 148/83 153/62 O2 Sat by Pulse Oximetry Constitutional: no acute distress, alert Eyes: non-icteric, other (+ mild periorbital phymosis) ENT: oropharynx moist Neck: supple, no lymphadenopathy, no JVD, other (large circumference) Effort: mildly labored Ascultation: Bilateral: diminished breath sounds, rhonchi (scant) Percussion: Bilateral: not dull Cardiovascular: irregular rhythm, other (no R/M) Gastrointestinal: normoactive bowel sounds, soft, non-tender, other (obese) Integumentary: normal, other (Left flank ecchymosis with induration) Extremities: no cyanosis, pulses normal, no ischemia or petechiae, edema (2+) Neurologic: non-focal exam (grossly), pupils equal and round, other (Patient sleeping at this time.) Psychiatric: other (Unable to assess, Patient sleeping at this time.) CBC and BMP: 11/23/21 07:18 11/22/21 05:10 ABG, PT/INR, D-dimer: ABG ABG pH 7.475 pH Units (7.350-7.450) H 11/11/21 13:53 ABG pCO2 45.0 mm Hg 11/11/21 13:53 ABG pO2 64.1 mm Hg (80.0-90.0) L 11/11/21 13:53 ABG O2 Saturation 96.3 % (95.0-99.0) 11/11/21 13:53 PT/INR, D-dimer PT 17.2 Sec. (12.2-14.9) H 10/30/21 16:30 INR 1.27 (0.87-1.13) H 10/30/21 16:30 D-Dimer > 16087 ng/mlDDU (0-234) H 10/30/21 Unknown Abnormal lab findings: Abnormal Labs 10/29/21 10/29/21 10/29/21 15:10 15:10 15:10 WBC 27.8 H RBC Hgb Hct MCH 27 L RDW Plt Count Lymph % (Auto) [place] % (Auto) Lymph # (Auto) [place] # (Auto) Seg Neutrophils % Seg Neuts % (Manual) 78.0 H Lymphocytes % (Manual) 10.0 L Nucleated RBC % Seg Neutrophils # Seg Neutrophils # Man 21.7 H Monocytes # (Manual) 1.4 H PT INR APTT D-Dimer Heparin Anti-Xa Level ABG pH ABG pO2 ABG HCO3 ABG O2 Saturation ABG Base Excess ABG Hemoglobin Oxyhemoglobin Sodium Potassium Chloride Carbon Dioxide BUN Creatinine Glucose POC Glucose Hemoglobin A1c Lactic Acid 6.80 H* Calcium Phosphorus Magnesium Ferritin AST ALT Alkaline Phosphatase Lactate Dehydrogenase Troponin T 0.089 H C-Reactive Protein Total Protein Albumin LDL Cholesterol Direct Urine Creatinine Urine Total Protein Salicylates Acetaminophen Crossmatch 10/29/21 10/29/21 10/29/21 15:10 15:10 15:10 WBC RBC Hgb Hct MCH RDW Plt Count Lymph % (Auto) [place] % (Auto) Lymph # (Auto) [place] # (Auto) Seg Neutrophils % Seg Neuts % (Manual) Lymphocytes % (Manual) Nucleated RBC % Seg Neutrophils # Seg Neutrophils # Man Monocytes # (Manual) PT INR APTT D-Dimer Heparin Anti-Xa Level ABG pH ABG pO2 ABG HCO3 ABG O2 Saturation ABG Base Excess ABG Hemoglobin Oxyhemoglobin Sodium 136 L Potassium 2.8 L* Chloride 93.4 L Carbon Dioxide 20 L BUN Creatinine Glucose 330 H POC Glucose Hemoglobin A1c Lactic Acid Calcium Phosphorus Magnesium Ferritin AST 1013 H ALT 1289 H Alkaline Phosphatase 246 H Lactate Dehydrogenase Troponin T C-Reactive Protein Total Protein Albumin LDL Cholesterol Direct Urine Creatinine Urine Total Protein Salicylates < 0.3 L Acetaminophen 5.0 L Crossmatch 10/29/21 10/29/21 10/29/21 15:11 16:01 19:29 WBC RBC Hgb Hct MCH RDW Plt Count Lymph % (Auto) [place] % (Auto) Lymph # (Auto) [place] # (Auto) Seg Neutrophils % Seg Neuts % (Manual) Lymphocytes % (Manual) Nucleated RBC % Seg Neutrophils # Seg Neutrophils # Man Monocytes # (Manual) PT INR APTT D-Dimer Heparin Anti-Xa Level ABG pH 7.307 L ABG pO2 64.1 L ABG HCO3 ABG O2 Saturation 90.8 L ABG Base Excess -2.9 L ABG Hemoglobin Oxyhemoglobin 89.3 L Sodium Potassium Chloride Carbon Dioxide BUN Creatinine Glucose POC Glucose Hemoglobin A1c Lactic Acid 2.60 H* Calcium Phosphorus Magnesium 2.90 H Ferritin AST ALT Alkaline Phosphatase Lactate Dehydrogenase Troponin T C-Reactive Protein Total Protein Albumin LDL Cholesterol Direct Urine Creatinine Urine Total Protein Salicylates Acetaminophen Crossmatch 10/29/21 10/29/21 10/30/21 19:40 22:34 04:30 WBC 16.2 H RBC Hgb Hct MCH 26 L RDW 15.5 H Plt Count Lymph % (Auto) 6.2 L [place] % (Auto) Lymph # (Auto) 1.0 L [place] # (Auto) 0.9 H Seg Neutrophils % 88.1 H Seg Neuts % (Manual) Lymphocytes % (Manual) Nucleated RBC % Seg Neutrophils # 14.2 H Seg Neutrophils # Man Monocytes # (Manual) PT INR APTT D-Dimer Heparin Anti-Xa Level ABG pH ABG pO2 ABG HCO3 ABG O2 Saturation ABG Base Excess ABG Hemoglobin Oxyhemoglobin Sodium Potassium Chloride Carbon Dioxide BUN Creatinine Glucose POC Glucose Hemoglobin A1c Lactic Acid Calcium Phosphorus Magnesium Ferritin AST ALT Alkaline Phosphatase Lactate Dehydrogenase Troponin T 1.950 H* D 1.150 H* D C-Reactive Protein Total Protein Albumin LDL Cholesterol Direct 43 L Urine Creatinine Urine Total Protein Salicylates Acetaminophen Crossmatch 10/30/21 10/30/21 10/30/21 04:30 04:35 05:45 WBC RBC Hgb Hct MCH RDW Plt Count Lymph % (Auto) [place] % (Auto) Lymph # (Auto) [place] # (Auto) Seg Neutrophils % Seg Neuts % (Manual) Lymphocytes % (Manual) Nucleated RBC % Seg Neutrophils # Seg Neutrophils # Man Monocytes # (Manual) PT INR APTT D-Dimer Heparin Anti-Xa Level ABG pH ABG pO2 69.5 L ABG HCO3 ABG O2 Saturation ABG Base Excess -2.7 L ABG Hemoglobin Oxyhemoglobin 94.7 L Sodium Potassium Chloride Carbon Dioxide 21 L BUN Creatinine Glucose 159 H POC Glucose 151 H Hemoglobin A1c Lactic Acid Calcium 7.9 L D Phosphorus Magnesium Ferritin AST 461 H ALT 686 H Alkaline Phosphatase 130 H Lactate Dehydrogenase Troponin T C-Reactive Protein Total Protein 5.6 L D Albumin 3.2 L LDL Cholesterol Direct Urine Creatinine Urine Total Protein Salicylates Acetaminophen Crossmatch 10/30/21 10/30/21 10/30/21 11:24 15:59 16:30 WBC RBC Hgb Hct MCH RDW Plt Count Lymph % (Auto) [place] % (Auto) Lymph # (Auto) [place] # (Auto) Seg Neutrophils % Seg Neuts % (Manual) Lymphocytes % (Manual) Nucleated RBC % Seg Neutrophils # Seg Neutrophils # Man Monocytes # (Manual) PT 17.2 H INR 1.27 H APTT 44.4 H D-Dimer Heparin Anti-Xa Level ABG pH ABG pO2 ABG HCO3 ABG O2 Saturation ABG Base Excess ABG Hemoglobin Oxyhemoglobin Sodium Potassium Chloride Carbon Dioxide BUN Creatinine Glucose POC Glucose 153 H 109 H Hemoglobin A1c Lactic Acid Calcium Phosphorus Magnesium Ferritin AST ALT Alkaline Phosphatase Lactate Dehydrogenase Troponin T C-Reactive Protein Total Protein Albumin LDL Cholesterol Direct Urine Creatinine Urine Total Protein Salicylates Acetaminophen Crossmatch 10/30/21 10/30/21 10/30/21 23:00 Unknown Unknown WBC RBC Hgb Hct MCH RDW Plt Count Lymph % (Auto) [place] % (Auto) Lymph # (Auto) [place] # (Auto) Seg Neutrophils % Seg Neuts % (Manual) Lymphocytes % (Manual) Nucleated RBC % Seg Neutrophils # Seg Neutrophils # Man Monocytes # (Manual) PT INR APTT D-Dimer > 10838 H Heparin Anti-Xa Level 0.82 H ABG pH ABG pO2 ABG HCO3 ABG O2 Saturation ABG Base Excess ABG Hemoglobin Oxyhemoglobin Sodium Potassium Chloride Carbon Dioxide BUN Creatinine Glucose POC Glucose Hemoglobin A1c Lactic Acid Calcium Phosphorus Magnesium Ferritin 208.4 H AST ALT Alkaline Phosphatase Lactate Dehydrogenase Troponin T C-Reactive Protein Total Protein Albumin LDL Cholesterol Direct Urine Creatinine Urine Total Protein Salicylates Acetaminophen Crossmatch 10/30/21 10/31/21 10/31/21 Unknown 04:30 04:30 WBC 14.4 H RBC Hgb Hct MCH 26 L RDW Plt Count Lymph % (Auto) [place] % (Auto) Lymph # (Auto) [place] # (Auto) Seg Neutrophils % Seg Neuts % (Manual) Lymphocytes % (Manual) Nucleated RBC % Seg Neutrophils # Seg Neutrophils # Man Monocytes # (Manual) PT INR APTT D-Dimer Heparin Anti-Xa Level ABG pH ABG pO2 ABG HCO3 ABG O2 Saturation ABG Base Excess ABG Hemoglobin Oxyhemoglobin Sodium Potassium 3.5 L Chloride 107.5 H Carbon Dioxide 20 L BUN 28 H Creatinine 1.7 H Glucose 113 H POC Glucose Hemoglobin A1c Lactic Acid Calcium 7.9 L Phosphorus Magnesium Ferritin AST ALT Alkaline Phosphatase Lactate Dehydrogenase 469 H Troponin T C-Reactive Protein 13.40 H Total Protein Albumin LDL Cholesterol Direct Urine Creatinine Urine Total Protein Salicylates Acetaminophen Crossmatch 10/31/21 10/31/21 10/31/21 04:30 05:11 15:30 WBC RBC Hgb Hct MCH RDW Plt Count Lymph % (Auto) [place] % (Auto) Lymph # (Auto) [place] # (Auto) Seg Neutrophils % Seg Neuts % (Manual) Lymphocytes % (Manual) Nucleated RBC % Seg Neutrophils # Seg Neutrophils # Man Monocytes # (Manual) PT INR APTT D-Dimer Heparin Anti-Xa Level ABG pH 7.222 L ABG pO2 61.5 L ABG HCO3 ABG O2 Saturation 86.2 L ABG Base Excess -6.3 L ABG Hemoglobin 11.2 L Oxyhemoglobin 84.5 L Sodium Potassium Chloride Carbon Dioxide BUN Creatinine Glucose POC Glucose 106 H Hemoglobin A1c 6.7 H Lactic Acid Calcium Phosphorus Magnesium Ferritin AST ALT Alkaline Phosphatase Lactate Dehydrogenase Troponin T C-Reactive Protein Total Protein Albumin LDL Cholesterol Direct Urine Creatinine Urine Total Protein Salicylates Acetaminophen Crossmatch 10/31/21 10/31/21 10/31/21 16:07 16:35 17:45 WBC RBC Hgb Hct MCH RDW Plt Count Lymph % (Auto) [place] % (Auto) Lymph # (Auto) [place] # (Auto) Seg Neutrophils % Seg Neuts % (Manual) Lymphocytes % (Manual) Nucleated RBC % Seg Neutrophils # Seg Neutrophils # Man Monocytes # (Manual) PT INR APTT D-Dimer Heparin Anti-Xa Level ABG pH 7.267 L ABG pO2 58.3 L ABG HCO3 ABG O2 Saturation 88.3 L ABG Base Excess -5.9 L ABG Hemoglobin 10.1 L Oxyhemoglobin 86.5 L Sodium Potassium Chloride Carbon Dioxide BUN Creatinine Glucose POC Glucose 115 H Hemoglobin A1c Lactic Acid Calcium Phosphorus Magnesium Ferritin AST ALT Alkaline Phosphatase Lactate Dehydrogenase Troponin T C-Reactive Protein Total Protein Albumin LDL Cholesterol Direct Urine Creatinine 383.6 H Urine Total Protein Salicylates Acetaminophen Crossmatch 11/01/21 11/01/21 11/01/21 00:06 05:08 06:00 WBC 12.6 H RBC 3.43 L Hgb 8.9 L Hct 28.7 L MCH 26 L RDW 15.7 H Plt Count 130 L Lymph % (Auto) [place] % (Auto) Lymph # (Auto) [place] # (Auto) Seg Neutrophils % Seg Neuts % (Manual) Lymphocytes % (Manual) Nucleated RBC % Seg Neutrophils # Seg Neutrophils # Man Monocytes # (Manual) PT INR APTT D-Dimer Heparin Anti-Xa Level ABG pH ABG pO2 ABG HCO3 ABG O2 Saturation ABG Base Excess ABG Hemoglobin Oxyhemoglobin Sodium Potassium Chloride Carbon Dioxide BUN Creatinine Glucose POC Glucose 114 H 120 H Hemoglobin A1c Lactic Acid Calcium Phosphorus Magnesium Ferritin AST ALT Alkaline Phosphatase Lactate Dehydrogenase Troponin T C-Reactive Protein Total Protein Albumin LDL Cholesterol Direct Urine Creatinine Urine Total Protein Salicylates Acetaminophen Crossmatch 11/01/21 11/01/21 11/01/21 06:00 11:43 14:00 WBC RBC Hgb Hct MCH RDW Plt Count Lymph % (Auto) [place] % (Auto) Lymph # (Auto) [place] # (Auto) Seg Neutrophils % Seg Neuts % (Manual) Lymphocytes % (Manual) Nucleated RBC % Seg Neutrophils # Seg Neutrophils # Man Monocytes # (Manual) PT INR APTT D-Dimer Heparin Anti-Xa Level ABG pH 7.349 L ABG pO2 75.6 L ABG HCO3 ABG O2 Saturation ABG Base Excess -3.9 L ABG Hemoglobin 9.8 L Oxyhemoglobin 93.5 L Sodium Potassium Chloride 114.1 H Carbon Dioxide 20 L BUN 33 H Creatinine Glucose 131 H POC Glucose 151 H Hemoglobin A1c Lactic Acid Calcium 7.7 L Phosphorus Magnesium Ferritin AST 79 H ALT 259 H Alkaline Phosphatase Lactate Dehydrogenase Troponin T C-Reactive Protein Total Protein 5.5 L Albumin 2.7 L LDL Cholesterol Direct Urine Creatinine Urine Total Protein Salicylates Acetaminophen Crossmatch 11/01/21 11/01/21 11/02/21 16:45 22:55 05:12 WBC RBC Hgb Hct MCH RDW Plt Count Lymph % (Auto) [place] % (Auto) Lymph # (Auto) [place] # (Auto) Seg Neutrophils % Seg Neuts % (Manual) Lymphocytes % (Manual) Nucleated RBC % Seg Neutrophils # Seg Neutrophils # Man Monocytes # (Manual) PT INR APTT D-Dimer Heparin Anti-Xa Level ABG pH ABG pO2 ABG HCO3 ABG O2 Saturation ABG Base Excess ABG Hemoglobin Oxyhemoglobin Sodium Potassium Chloride Carbon Dioxide BUN Creatinine Glucose POC Glucose 119 H 129 H 140 H Hemoglobin A1c Lactic Acid Calcium Phosphorus Magnesium Ferritin AST ALT Alkaline Phosphatase Lactate Dehydrogenase Troponin T C-Reactive Protein Total Protein Albumin LDL Cholesterol Direct Urine Creatinine Urine Total Protein Salicylates Acetaminophen Crossmatch 11/02/21 11/02/21 11/02/21 05:35 05:35 09:35 WBC 13.5 H RBC 3.60 L Hgb 9.7 L Hct MCH 27 L RDW 15.7 H Plt Count Lymph % (Auto) [place] % (Auto) Lymph # (Auto) [place] # (Auto) Seg Neutrophils % Seg Neuts % (Manual) Lymphocytes % (Manual) Nucleated RBC % Seg Neutrophils # Seg Neutrophils # Man Monocytes # (Manual) PT INR APTT D-Dimer Heparin Anti-Xa Level ABG pH 7.208 L ABG pO2 75.9 L ABG HCO3 ABG O2 Saturation 93.6 L ABG Base Excess -4.3 L ABG Hemoglobin 9.1 L Oxyhemoglobin 91.6 L Sodium Potassium 5.2 H D Chloride 112.6 H Carbon Dioxide BUN 32 H Creatinine Glucose 152 H POC Glucose Hemoglobin A1c Lactic Acid Calcium 8.2 L Phosphorus Magnesium 2.70 H Ferritin AST ALT Alkaline Phosphatase Lactate Dehydrogenase Troponin T C-Reactive Protein Total Protein Albumin LDL Cholesterol Direct Urine Creatinine Urine Total Protein Salicylates Acetaminophen Crossmatch 11/02/21 11/02/21 11/02/21 11:44 17:13 23:43 WBC RBC Hgb Hct MCH RDW Plt Count Lymph % (Auto) [place] % (Auto) Lymph # (Auto) [place] # (Auto) Seg Neutrophils % Seg Neuts % (Manual) Lymphocytes % (Manual) Nucleated RBC % Seg Neutrophils # Seg Neutrophils # Man Monocytes # (Manual) PT INR APTT D-Dimer Heparin Anti-Xa Level ABG pH ABG pO2 ABG HCO3 ABG O2 Saturation ABG Base Excess ABG Hemoglobin Oxyhemoglobin Sodium Potassium Chloride Carbon Dioxide BUN Creatinine Glucose POC Glucose 173 H 148 H 137 H Hemoglobin A1c Lactic Acid Calcium Phosphorus Magnesium Ferritin AST ALT Alkaline Phosphatase Lactate Dehydrogenase Troponin T C-Reactive Protein Total Protein Albumin LDL Cholesterol Direct Urine Creatinine Urine Total Protein Salicylates Acetaminophen Crossmatch 11/03/21 11/03/21 11/03/21 04:59 06:00 06:00 WBC RBC 3.43 L Hgb 9.1 L Hct 29.0 L MCH 26 L RDW 16.4 H Plt Count Lymph % (Auto) [place] % (Auto) Lymph # (Auto) [place] # (Auto) Seg Neutrophils % Seg Neuts % (Manual) Lymphocytes % (Manual) Nucleated RBC % Seg Neutrophils # Seg Neutrophils # Man Monocytes # (Manual) PT INR APTT D-Dimer Heparin Anti-Xa Level 0.17 L ABG pH ABG pO2 ABG HCO3 ABG O2 Saturation ABG Base Excess ABG Hemoglobin Oxyhemoglobin Sodium Potassium Chloride Carbon Dioxide BUN Creatinine Glucose POC Glucose 167 H Hemoglobin A1c Lactic Acid Calcium Phosphorus Magnesium Ferritin AST ALT Alkaline Phosphatase Lactate Dehydrogenase Troponin T C-Reactive Protein Total Protein Albumin LDL Cholesterol Direct Urine Creatinine Urine Total Protein Salicylates Acetaminophen Crossmatch 11/03/21 11/03/21 11/03/21 06:00 09:20 11:58 WBC RBC Hgb Hct MCH RDW Plt Count Lymph % (Auto) [place] % (Auto) Lymph # (Auto) [place] # (Auto) Seg Neutrophils % Seg Neuts % (Manual) Lymphocytes % (Manual) Nucleated RBC % Seg Neutrophils # Seg Neutrophils # Man Monocytes # (Manual) PT INR APTT D-Dimer Heparin Anti-Xa Level ABG pH 7.274 L ABG pO2 75.6 L ABG HCO3 ABG O2 Saturation 94.9 L ABG Base Excess -2.5 L ABG Hemoglobin 9.3 L Oxyhemoglobin 92.9 L Sodium 149 H Potassium Chloride 117.5 H Carbon Dioxide BUN 32 H Creatinine Glucose 173 H POC Glucose 192 H Hemoglobin A1c Lactic Acid Calcium 8.1 L Phosphorus Magnesium Ferritin AST ALT Alkaline Phosphatase Lactate Dehydrogenase Troponin T C-Reactive Protein Total Protein Albumin LDL Cholesterol Direct Urine Creatinine Urine Total Protein Salicylates Acetaminophen Crossmatch 11/03/21 11/03/21 11/04/21 18:22 Unknown 00:09 WBC RBC Hgb Hct MCH RDW Plt Count Lymph % (Auto) [place] % (Auto) Lymph # (Auto) [place] # (Auto) Seg Neutrophils % Seg Neuts % (Manual) Lymphocytes % (Manual) Nucleated RBC % Seg Neutrophils # Seg Neutrophils # Man Monocytes # (Manual) PT INR APTT D-Dimer Heparin Anti-Xa Level 0.29 L ABG pH ABG pO2 ABG HCO3 ABG O2 Saturation ABG Base Excess ABG Hemoglobin Oxyhemoglobin Sodium Potassium Chloride Carbon Dioxide BUN Creatinine Glucose POC Glucose 178 H 221 H Hemoglobin A1c Lactic Acid Calcium Phosphorus Magnesium Ferritin AST ALT Alkaline Phosphatase Lactate Dehydrogenase Troponin T C-Reactive Protein Total Protein Albumin LDL Cholesterol Direct Urine Creatinine Urine Total Protein Salicylates Acetaminophen Crossmatch 11/04/21 11/04/21 11/04/21 05:09 09:40 09:40 WBC 16.8 H RBC Hgb Hct MCH 27 L RDW 16.5 H Plt Count Lymph % (Auto) [place] % (Auto) Lymph # (Auto) [place] # (Auto) Seg Neutrophils % Seg Neuts % (Manual) Lymphocytes % (Manual) Nucleated RBC % Seg Neutrophils # Seg Neutrophils # Man Monocytes # (Manual) PT INR APTT D-Dimer Heparin Anti-Xa Level ABG pH ABG pO2 ABG HCO3 ABG O2 Saturation ABG Base Excess ABG Hemoglobin Oxyhemoglobin Sodium Potassium 5.9 H Chloride 108.5 H Carbon Dioxide BUN 54 H Creatinine 1.8 H Glucose 198 H POC Glucose 182 H Hemoglobin A1c Lactic Acid Calcium Phosphorus Magnesium 3.00 H Ferritin AST ALT Alkaline Phosphatase Lactate Dehydrogenase Troponin T C-Reactive Protein Total Protein Albumin LDL Cholesterol Direct Urine Creatinine Urine Total Protein Salicylates Acetaminophen Crossmatch 11/04/21 11/04/21 11/04/21 12:13 13:34 14:05 WBC RBC Hgb Hct MCH RDW Plt Count Lymph % (Auto) [place] % (Auto) Lymph # (Auto) [place] # (Auto) Seg Neutrophils % Seg Neuts % (Manual) Lymphocytes % (Manual) Nucleated RBC % Seg Neutrophils # Seg Neutrophils # Man Monocytes # (Manual) PT INR APTT D-Dimer Heparin Anti-Xa Level ABG pH 7.223 L ABG pO2 71.3 L ABG HCO3 ABG O2 Saturation 92.8 L ABG Base Excess ABG Hemoglobin 8.2 L Oxyhemoglobin 91.0 L Sodium Potassium Chloride Carbon Dioxide BUN Creatinine Glucose POC Glucose 184 H Hemoglobin A1c Lactic Acid Calcium Phosphorus Magnesium Ferritin AST ALT Alkaline Phosphatase Lactate Dehydrogenase Troponin T C-Reactive Protein Total Protein Albumin LDL Cholesterol Direct Urine Creatinine 184.6 H Urine Total Protein Salicylates Acetaminophen Crossmatch 11/04/21 11/04/21 11/05/21 18:02 Unknown 00:07 WBC RBC Hgb Hct MCH RDW Plt Count Lymph % (Auto) [place] % (Auto) Lymph # (Auto) [place] # (Auto) Seg Neutrophils % Seg Neuts % (Manual) Lymphocytes % (Manual) Nucleated RBC % Seg Neutrophils # Seg Neutrophils # Man Monocytes # (Manual) PT INR APTT D-Dimer Heparin Anti-Xa Level ABG pH ABG pO2 ABG HCO3 ABG O2 Saturation ABG Base Excess ABG Hemoglobin Oxyhemoglobin Sodium Potassium Chloride Carbon Dioxide BUN Creatinine Glucose POC Glucose 262 H 259 H Hemoglobin A1c Lactic Acid Calcium Phosphorus Magnesium Ferritin AST ALT Alkaline Phosphatase Lactate Dehydrogenase Troponin T C-Reactive Protein Total Protein Albumin LDL Cholesterol Direct Urine Creatinine 190.9 H Urine Total Protein 172 H Salicylates Acetaminophen Crossmatch 11/05/21 11/05/21 11/05/21 04:20 04:20 05:30 WBC 17.9 H RBC 3.64 L Hgb 9.7 L Hct MCH 27 L RDW 16.4 H Plt Count Lymph % (Auto) [place] % (Auto) Lymph # (Auto) [place] # (Auto) Seg Neutrophils % Seg Neuts % (Manual) Lymphocytes % (Manual) Nucleated RBC % Seg Neutrophils # Seg Neutrophils # Man Monocytes # (Manual) PT INR APTT D-Dimer Heparin Anti-Xa Level ABG pH ABG pO2 ABG HCO3 ABG O2 Saturation ABG Base Excess ABG Hemoglobin Oxyhemoglobin Sodium Potassium 5.6 H Chloride 108.4 H Carbon Dioxide BUN 71 H Creatinine 1.9 H Glucose 270 H POC Glucose 283 H Hemoglobin A1c Lactic Acid Calcium Phosphorus Magnesium Ferritin AST ALT Alkaline Phosphatase Lactate Dehydrogenase Troponin T C-Reactive Protein Total Protein Albumin LDL Cholesterol Direct Urine Creatinine Urine Total Protein Salicylates Acetaminophen Crossmatch 11/05/21 11/05/21 11/05/21 10:05 12:10 15:29 WBC RBC Hgb Hct MCH RDW Plt Count Lymph % (Auto) [place] % (Auto) Lymph # (Auto) [place] # (Auto) Seg Neutrophils % Seg Neuts % (Manual) Lymphocytes % (Manual) Nucleated RBC % Seg Neutrophils # Seg Neutrophils # Man Monocytes # (Manual) PT INR APTT D-Dimer Heparin Anti-Xa Level ABG pH 7.248 L ABG pO2 73.7 L ABG HCO3 26.2 H ABG O2 Saturation 93.1 L ABG Base Excess ABG Hemoglobin 8.9 L Oxyhemoglobin 91.4 L Sodium Potassium Chloride Carbon Dioxide BUN Creatinine Glucose POC Glucose 225 H 199 H Hemoglobin A1c Lactic Acid Calcium Phosphorus Magnesium Ferritin AST ALT Alkaline Phosphatase Lactate Dehydrogenase Troponin T C-Reactive Protein Total Protein Albumin LDL Cholesterol Direct Urine Creatinine Urine Total Protein Salicylates Acetaminophen Crossmatch 11/05/21 11/05/21 11/05/21 15:51 17:32 17:40 WBC RBC Hgb Hct MCH RDW Plt Count Lymph % (Auto) [place] % (Auto) Lymph # (Auto) [place] # (Auto) Seg Neutrophils % Seg Neuts % (Manual) Lymphocytes % (Manual) Nucleated RBC % Seg Neutrophils # Seg Neutrophils # Man Monocytes # (Manual) PT INR APTT D-Dimer Heparin Anti-Xa Level ABG pH ABG pO2 ABG HCO3 ABG O2 Saturation ABG Base Excess ABG Hemoglobin Oxyhemoglobin Sodium Potassium 5.2 H Chloride 107.8 H Carbon Dioxide BUN 79 H Creatinine 1.9 H Glucose 204 H POC Glucose 278 H 197 H Hemoglobin A1c Lactic Acid Calcium Phosphorus Magnesium Ferritin AST ALT Alkaline Phosphatase Lactate Dehydrogenase Troponin T C-Reactive Protein Total Protein Albumin LDL Cholesterol Direct Urine Creatinine Urine Total Protein Salicylates Acetaminophen Crossmatch 11/05/21 11/05/21 11/05/21 21:25 22:22 23:43 WBC RBC Hgb Hct MCH RDW Plt Count Lymph % (Auto) [place] % (Auto) Lymph # (Auto) [place] # (Auto) Seg Neutrophils % Seg Neuts % (Manual) Lymphocytes % (Manual) Nucleated RBC % Seg Neutrophils # Seg Neutrophils # Man Monocytes # (Manual) PT INR APTT D-Dimer Heparin Anti-Xa Level ABG pH ABG pO2 ABG HCO3 ABG O2 Saturation ABG Base Excess ABG Hemoglobin Oxyhemoglobin Sodium Potassium 5.3 H Chloride 109.2 H Carbon Dioxide BUN 81 H Creatinine 2.0 H Glucose 195 H POC Glucose 180 H 203 H Hemoglobin A1c Lactic Acid Calcium Phosphorus Magnesium Ferritin AST ALT Alkaline Phosphatase Lactate Dehydrogenase Troponin T C-Reactive Protein Total Protein Albumin LDL Cholesterol Direct Urine Creatinine Urine Total Protein Salicylates Acetaminophen Crossmatch 11/05/21 11/06/21 11/06/21 Unknown 02:35 05:09 WBC RBC Hgb Hct MCH RDW Plt Count Lymph % (Auto) [place] % (Auto) Lymph # (Auto) [place] # (Auto) Seg Neutrophils % Seg Neuts % (Manual) Lymphocytes % (Manual) Nucleated RBC % Seg Neutrophils # Seg Neutrophils # Man Monocytes # (Manual) PT INR APTT D-Dimer Heparin Anti-Xa Level ABG pH ABG pO2 ABG HCO3 ABG O2 Saturation ABG Base Excess ABG Hemoglobin Oxyhemoglobin Sodium 146 H Potassium 6.0 H Chloride 108.1 H 107.1 H Carbon Dioxide 21 L BUN 80 H 84 H Creatinine 2.0 H 2.0 H Glucose 238 H 235 H POC Glucose 215 H Hemoglobin A1c Lactic Acid Calcium Phosphorus Magnesium 2.80 H Ferritin AST ALT 77 H Alkaline Phosphatase Lactate Dehydrogenase Troponin T C-Reactive Protein Total Protein Albumin 3.0 L LDL Cholesterol Direct Urine Creatinine Urine Total Protein Salicylates Acetaminophen Crossmatch 11/06/21 11/06/21 11/06/21 05:40 08:07 08:07 WBC RBC Hgb Hct MCH RDW Plt Count Lymph % (Auto) [place] % (Auto) Lymph # (Auto) [place] # (Auto) Seg Neutrophils % Seg Neuts % (Manual) Lymphocytes % (Manual) Nucleated RBC % Seg Neutrophils # Seg Neutrophils # Man Monocytes # (Manual) PT INR APTT D-Dimer Heparin Anti-Xa Level 1.24 H ABG pH 7.311 L ABG pO2 72.8 L ABG HCO3 29.7 H ABG O2 Saturation 94.1 L ABG Base Excess ABG Hemoglobin 11.4 L Oxyhemoglobin 92.3 L Sodium Potassium 5.2 H Chloride Carbon Dioxide BUN 85 H Creatinine 2.3 H Glucose 236 H POC Glucose Hemoglobin A1c Lactic Acid Calcium Phosphorus Magnesium Ferritin AST ALT Alkaline Phosphatase Lactate Dehydrogenase Troponin T C-Reactive Protein Total Protein Albumin LDL Cholesterol Direct Urine Creatinine Urine Total Protein Salicylates Acetaminophen Crossmatch 11/06/21 11/06/21 11/06/21 12:14 12:57 14:28 WBC RBC Hgb Hct MCH RDW Plt Count Lymph % (Auto) [place] % (Auto) Lymph # (Auto) [place] # (Auto) Seg Neutrophils % Seg Neuts % (Manual) Lymphocytes % (Manual) Nucleated RBC % Seg Neutrophils # Seg Neutrophils # Man Monocytes # (Manual) PT INR APTT D-Dimer Heparin Anti-Xa Level ABG pH 7.282 L ABG pO2 72.6 L ABG HCO3 30.8 H ABG O2 Saturation 93.7 L ABG Base Excess 3.2 H ABG Hemoglobin 8.6 L Oxyhemoglobin 91.8 L Sodium Potassium Chloride Carbon Dioxide BUN 91 H Creatinine 2.6 H Glucose 259 H POC Glucose 225 H Hemoglobin A1c Lactic Acid Calcium Phosphorus Magnesium Ferritin AST ALT Alkaline Phosphatase Lactate Dehydrogenase Troponin T C-Reactive Protein Total Protein Albumin LDL Cholesterol Direct Urine Creatinine Urine Total Protein Salicylates Acetaminophen Crossmatch 11/06/21 11/06/21 11/06/21 17:28 19:20 21:30 WBC RBC Hgb Hct MCH RDW Plt Count Lymph % (Auto) [place] % (Auto) Lymph # (Auto) [place] # (Auto) Seg Neutrophils % Seg Neuts % (Manual) Lymphocytes % (Manual) Nucleated RBC % Seg Neutrophils # Seg Neutrophils # Man Monocytes # (Manual) PT INR APTT D-Dimer Heparin Anti-Xa Level 0.73 H ABG pH ABG pO2 ABG HCO3 ABG O2 Saturation ABG Base Excess ABG Hemoglobin Oxyhemoglobin Sodium Potassium Chloride Carbon Dioxide BUN 95 H Creatinine 2.9 H Glucose 233 H POC Glucose 206 H Hemoglobin A1c Lactic Acid Calcium Phosphorus Magnesium Ferritin AST ALT Alkaline Phosphatase Lactate Dehydrogenase Troponin T C-Reactive Protein Total Protein Albumin LDL Cholesterol Direct Urine Creatinine Urine Total Protein Salicylates Acetaminophen Crossmatch 11/06/21 11/07/21 11/07/21 22:56 05:06 06:30 WBC RBC Hgb Hct MCH RDW Plt Count Lymph % (Auto) [place] % (Auto) Lymph # (Auto) [place] # (Auto) Seg Neutrophils % Seg Neuts % (Manual) Lymphocytes % (Manual) Nucleated RBC % Seg Neutrophils # Seg Neutrophils # Man Monocytes # (Manual) PT INR APTT D-Dimer Heparin Anti-Xa Level ABG pH ABG pO2 ABG HCO3 ABG O2 Saturation ABG Base Excess ABG Hemoglobin Oxyhemoglobin Sodium 146 H Potassium Chloride Carbon Dioxide BUN 98 H Creatinine 2.8 H Glucose 202 H POC Glucose 215 H 172 H Hemoglobin A1c Lactic Acid Calcium Phosphorus 4.90 H D Magnesium 2.90 H Ferritin AST ALT Alkaline Phosphatase Lactate Dehydrogenase Troponin T C-Reactive Protein Total Protein Albumin LDL Cholesterol Direct Urine Creatinine Urine Total Protein Salicylates Acetaminophen Crossmatch 11/07/21 11/07/21 11/07/21 06:30 11:26 12:15 WBC 16.0 H RBC 3.06 L Hgb 8.2 L Hct 26.1 L MCH 27 L RDW 16.2 H Plt Count Lymph % (Auto) [place] % (Auto) Lymph # (Auto) [place] # (Auto) Seg Neutrophils % Seg Neuts % (Manual) 77.0 H Lymphocytes % (Manual) 11.0 L Nucleated RBC % 2.0 H Seg Neutrophils # Seg Neutrophils # Man 12.3 H Monocytes # (Manual) PT INR APTT D-Dimer Heparin Anti-Xa Level ABG pH 7.298 L ABG pO2 73.0 L ABG HCO3 33.3 H ABG O2 Saturation 94.4 L ABG Base Excess 5.8 H ABG Hemoglobin 8.2 L Oxyhemoglobin 92.7 L Sodium Potassium Chloride Carbon Dioxide BUN Creatinine Glucose POC Glucose 179 H Hemoglobin A1c Lactic Acid Calcium Phosphorus Magnesium Ferritin AST ALT Alkaline Phosphatase Lactate Dehydrogenase Troponin T C-Reactive Protein Total Protein Albumin LDL Cholesterol Direct Urine Creatinine Urine Total Protein Salicylates Acetaminophen Crossmatch 11/07/21 11/07/21 11/07/21 17:57 22:16 23:49 WBC RBC Hgb Hct MCH RDW Plt Count Lymph % (Auto) [place] % (Auto) Lymph # (Auto) [place] # (Auto) Seg Neutrophils % Seg Neuts % (Manual) Lymphocytes % (Manual) Nucleated RBC % Seg Neutrophils # Seg Neutrophils # Man Monocytes # (Manual) PT INR APTT D-Dimer Heparin Anti-Xa Level ABG pH ABG pO2 ABG HCO3 ABG O2 Saturation ABG Base Excess ABG Hemoglobin Oxyhemoglobin Sodium Potassium Chloride Carbon Dioxide BUN Creatinine Glucose POC Glucose 166 H 223 H 190 H Hemoglobin A1c Lactic Acid Calcium Phosphorus Magnesium Ferritin AST ALT Alkaline Phosphatase Lactate Dehydrogenase Troponin T C-Reactive Protein Total Protein Albumin LDL Cholesterol Direct Urine Creatinine Urine Total Protein Salicylates Acetaminophen Crossmatch 11/08/21 11/08/21 11/08/21 04:20 04:20 06:16 WBC 22.1 H RBC 3.01 L Hgb 8.1 L Hct 25.6 L MCH 27 L RDW 15.4 H Plt Count Lymph % (Auto) [place] % (Auto) Lymph # (Auto) [place] # (Auto) Seg Neutrophils % Seg Neuts % (Manual) Lymphocytes % (Manual) Nucleated RBC % Seg Neutrophils # Seg Neutrophils # Man Monocytes # (Manual) PT INR APTT D-Dimer Heparin Anti-Xa Level ABG pH ABG pO2 ABG HCO3 ABG O2 Saturation ABG Base Excess ABG Hemoglobin Oxyhemoglobin Sodium 151 H Potassium 3.1 L D Chloride 107.3 H Carbon Dioxide 31 H BUN 82 H Creatinine 1.8 H Glucose 232 H POC Glucose 198 H Hemoglobin A1c Lactic Acid Calcium 8.1 L Phosphorus Magnesium Ferritin AST ALT Alkaline Phosphatase Lactate Dehydrogenase Troponin T C-Reactive Protein Total Protein Albumin LDL Cholesterol Direct Urine Creatinine Urine Total Protein Salicylates Acetaminophen Crossmatch 11/08/21 11/08/21 11/08/21 11:38 12:00 18:29 WBC RBC Hgb Hct MCH RDW Plt Count Lymph % (Auto) [place] % (Auto) Lymph # (Auto) [place] # (Auto) Seg Neutrophils % Seg Neuts % (Manual) Lymphocytes % (Manual) Nucleated RBC % Seg Neutrophils # Seg Neutrophils # Man Monocytes # (Manual) PT INR APTT D-Dimer Heparin Anti-Xa Level ABG pH ABG pO2 ABG HCO3 ABG O2 Saturation ABG Base Excess ABG Hemoglobin Oxyhemoglobin Sodium Potassium 3.0 L Chloride Carbon Dioxide BUN Creatinine Glucose POC Glucose 190 H 211 H Hemoglobin A1c Lactic Acid Calcium Phosphorus Magnesium Ferritin AST ALT Alkaline Phosphatase Lactate Dehydrogenase Troponin T C-Reactive Protein Total Protein Albumin LDL Cholesterol Direct Urine Creatinine Urine Total Protein Salicylates Acetaminophen Crossmatch 11/08/21 11/08/21 11/09/21 21:34 21:40 00:36 WBC RBC Hgb Hct MCH RDW Plt Count Lymph % (Auto) [place] % (Auto) Lymph # (Auto) [place] # (Auto) Seg Neutrophils % Seg Neuts % (Manual) Lymphocytes % (Manual) Nucleated RBC % Seg Neutrophils # Seg Neutrophils # Man Monocytes # (Manual) PT INR APTT D-Dimer Heparin Anti-Xa Level ABG pH ABG pO2 ABG HCO3 ABG O2 Saturation ABG Base Excess ABG Hemoglobin Oxyhemoglobin Sodium 148 H Potassium 2.8 L* Chloride Carbon Dioxide 31 H BUN 68 H Creatinine 1.5 H Glucose 191 H POC Glucose 194 H 140 H Hemoglobin A1c Lactic Acid Calcium 8.2 L Phosphorus Magnesium Ferritin AST ALT Alkaline Phosphatase Lactate Dehydrogenase Troponin T C-Reactive Protein Total Protein Albumin LDL Cholesterol Direct Urine Creatinine Urine Total Protein Salicylates Acetaminophen Crossmatch 11/09/21 11/09/21 11/09/21 04:51 04:51 04:51 WBC 27.6 H RBC 3.18 L Hgb 8.4 L Hct 26.6 L MCH 27 L RDW 15.3 H Plt Count Lymph % (Auto) [place] % (Auto) Lymph # (Auto) [place] # (Auto) Seg Neutrophils % Seg Neuts % (Manual) Lymphocytes % (Manual) Nucleated RBC % Seg Neutrophils # Seg Neutrophils # Man Monocytes # (Manual) PT INR APTT D-Dimer Heparin Anti-Xa Level 0.18 L ABG pH ABG pO2 ABG HCO3 ABG O2 Saturation ABG Base Excess ABG Hemoglobin Oxyhemoglobin Sodium 148 H Potassium 2.7 L* Chloride Carbon Dioxide BUN 59 H Creatinine 1.4 H Glucose 143 H POC Glucose Hemoglobin A1c Lactic Acid Calcium 8.3 L Phosphorus Magnesium Ferritin AST ALT Alkaline Phosphatase Lactate Dehydrogenase Troponin T C-Reactive Protein Total Protein Albumin LDL Cholesterol Direct Urine Creatinine Urine Total Protein Salicylates Acetaminophen Crossmatch 11/09/21 11/09/21 11/09/21 05:52 08:45 11:00 WBC RBC Hgb Hct MCH RDW Plt Count Lymph % (Auto) [place] % (Auto) Lymph # (Auto) [place] # (Auto) Seg Neutrophils % Seg Neuts % (Manual) Lymphocytes % (Manual) Nucleated RBC % Seg Neutrophils # Seg Neutrophils # Man Monocytes # (Manual) PT INR APTT D-Dimer Heparin Anti-Xa Level ABG pH ABG pO2 73.2 L ABG HCO3 33.8 H ABG O2 Saturation ABG Base Excess 8.7 H ABG Hemoglobin 8.5 L Oxyhemoglobin 94.1 L Sodium Potassium Chloride Carbon Dioxide BUN Creatinine Glucose POC Glucose 166 H 136 H Hemoglobin A1c Lactic Acid Calcium Phosphorus Magnesium Ferritin AST ALT Alkaline Phosphatase Lactate Dehydrogenase Troponin T C-Reactive Protein Total Protein Albumin LDL Cholesterol Direct Urine Creatinine Urine Total Protein Salicylates Acetaminophen Crossmatch 11/09/21 11/09/21 11/09/21 15:48 16:10 20:31 WBC RBC Hgb Hct MCH RDW Plt Count Lymph % (Auto) [place] % (Auto) Lymph # (Auto) [place] # (Auto) Seg Neutrophils % Seg Neuts % (Manual) Lymphocytes % (Manual) Nucleated RBC % Seg Neutrophils # Seg Neutrophils # Man Monocytes # (Manual) PT INR APTT D-Dimer Heparin Anti-Xa Level ABG pH ABG pO2 ABG HCO3 ABG O2 Saturation ABG Base Excess ABG Hemoglobin Oxyhemoglobin Sodium Potassium 2.8 L* Chloride Carbon Dioxide 31 H BUN 53 H Creatinine 1.3 H Glucose 208 H POC Glucose 203 H 166 H Hemoglobin A1c Lactic Acid Calcium 7.9 L Phosphorus Magnesium Ferritin AST ALT Alkaline Phosphatase Lactate Dehydrogenase Troponin T C-Reactive Protein Total Protein Albumin LDL Cholesterol Direct Urine Creatinine Urine Total Protein Salicylates Acetaminophen Crossmatch 11/09/21 11/09/21 11/09/21 21:30 23:16 Unknown WBC RBC Hgb Hct MCH RDW Plt Count Lymph % (Auto) [place] % (Auto) Lymph # (Auto) [place] # (Auto) Seg Neutrophils % Seg Neuts % (Manual) Lymphocytes % (Manual) Nucleated RBC % Seg Neutrophils # Seg Neutrophils # Man Monocytes # (Manual) PT INR APTT D-Dimer Heparin Anti-Xa Level 0.24 L ABG pH ABG pO2 ABG HCO3 ABG O2 Saturation ABG Base Excess ABG Hemoglobin Oxyhemoglobin Sodium Potassium Chloride Carbon Dioxide BUN 52 H Creatinine 1.4 H Glucose 185 H POC Glucose 172 H Hemoglobin A1c Lactic Acid Calcium 7.8 L Phosphorus Magnesium Ferritin AST ALT Alkaline Phosphatase Lactate Dehydrogenase Troponin T C-Reactive Protein Total Protein Albumin LDL Cholesterol Direct Urine Creatinine Urine Total Protein Salicylates Acetaminophen Crossmatch 11/10/21 11/10/21 11/10/21 02:00 04:17 04:17 WBC 24.5 H RBC 2.75 L Hgb 7.5 L Hct 22.9 L MCH 27 L RDW Plt Count Lymph % (Auto) [place] % (Auto) Lymph # (Auto) [place] # (Auto) Seg Neutrophils % Seg Neuts % (Manual) Lymphocytes % (Manual) Nucleated RBC % Seg Neutrophils # Seg Neutrophils # Man Monocytes # (Manual) PT INR APTT D-Dimer Heparin Anti-Xa Level 0.26 L ABG pH ABG pO2 ABG HCO3 ABG O2 Saturation ABG Base Excess ABG Hemoglobin Oxyhemoglobin Sodium Potassium 2.9 L* Chloride Carbon Dioxide 35 H BUN 48 H Creatinine Glucose 212 H POC Glucose Hemoglobin A1c Lactic Acid Calcium 8.1 L Phosphorus Magnesium Ferritin AST ALT Alkaline Phosphatase Lactate Dehydrogenase Troponin T C-Reactive Protein Total Protein Albumin LDL Cholesterol Direct Urine Creatinine Urine Total Protein Salicylates Acetaminophen Crossmatch 11/10/21 11/10/21 11/10/21 05:01 08:39 11:03 WBC RBC Hgb Hct MCH RDW Plt Count Lymph % (Auto) [place] % (Auto) Lymph # (Auto) [place] # (Auto) Seg Neutrophils % Seg Neuts % (Manual) Lymphocytes % (Manual) Nucleated RBC % Seg Neutrophils # Seg Neutrophils # Man Monocytes # (Manual) PT INR APTT D-Dimer Heparin Anti-Xa Level 0.12 L ABG pH ABG pO2 ABG HCO3 ABG O2 Saturation ABG Base Excess ABG Hemoglobin Oxyhemoglobin Sodium Potassium Chloride Carbon Dioxide BUN Creatinine Glucose POC Glucose 203 H 152 H Hemoglobin A1c Lactic Acid Calcium Phosphorus Magnesium Ferritin AST ALT Alkaline Phosphatase Lactate Dehydrogenase Troponin T C-Reactive Protein Total Protein Albumin LDL Cholesterol Direct Urine Creatinine Urine Total Protein Salicylates Acetaminophen Crossmatch 11/10/21 11/10/21 11/10/21 12:45 15:43 21:05 WBC RBC Hgb Hct MCH RDW Plt Count Lymph % (Auto) [place] % (Auto) Lymph # (Auto) [place] # (Auto) Seg Neutrophils % Seg Neuts % (Manual) Lymphocytes % (Manual) Nucleated RBC % Seg Neutrophils # Seg Neutrophils # Man Monocytes # (Manual) PT INR APTT D-Dimer Heparin Anti-Xa Level ABG pH ABG pO2 ABG HCO3 ABG O2 Saturation ABG Base Excess ABG Hemoglobin Oxyhemoglobin Sodium 146 H Potassium 3.3 L Chloride Carbon Dioxide 31 H BUN 43 H Creatinine Glucose 155 H POC Glucose 139 H 139 H Hemoglobin A1c Lactic Acid Calcium 8.3 L Phosphorus Magnesium Ferritin AST ALT Alkaline Phosphatase Lactate Dehydrogenase Troponin T C-Reactive Protein Total Protein Albumin LDL Cholesterol Direct Urine Creatinine Urine Total Protein Salicylates Acetaminophen Crossmatch 11/10/21 11/11/21 11/11/21 23:25 03:49 03:49 WBC 22.1 H RBC 2.69 L Hgb 7.2 L Hct 22.7 L MCH 27 L RDW Plt Count Lymph % (Auto) [place] % (Auto) Lymph # (Auto) [place] # (Auto) Seg Neutrophils % Seg Neuts % (Manual) Lymphocytes % (Manual) Nucleated RBC % Seg Neutrophils # Seg Neutrophils # Man Monocytes # (Manual) PT INR APTT D-Dimer Heparin Anti-Xa Level ABG pH ABG pO2 ABG HCO3 ABG O2 Saturation ABG Base Excess ABG Hemoglobin Oxyhemoglobin Sodium Potassium Chloride Carbon Dioxide 32 H BUN 44 H Creatinine 1.3 H Glucose 173 H POC Glucose 146 H Hemoglobin A1c Lactic Acid Calcium Phosphorus Magnesium Ferritin AST ALT Alkaline Phosphatase Lactate Dehydrogenase Troponin T C-Reactive Protein Total Protein Albumin LDL Cholesterol Direct Urine Creatinine Urine Total Protein Salicylates Acetaminophen Crossmatch 11/11/21 11/11/21 11/11/21 05:03 10:50 11:32 WBC RBC Hgb Hct MCH RDW Plt Count Lymph % (Auto) [place] % (Auto) Lymph # (Auto) [place] # (Auto) Seg Neutrophils % Seg Neuts % (Manual) Lymphocytes % (Manual) Nucleated RBC % Seg Neutrophils # Seg Neutrophils # Man Monocytes # (Manual) PT INR APTT D-Dimer Heparin Anti-Xa Level ABG pH ABG pO2 ABG HCO3 ABG O2 Saturation ABG Base Excess ABG Hemoglobin Oxyhemoglobin Sodium Potassium Chloride Carbon Dioxide BUN Creatinine Glucose POC Glucose 152 H 129 H 133 H Hemoglobin A1c Lactic Acid Calcium Phosphorus Magnesium Ferritin AST ALT Alkaline Phosphatase Lactate Dehydrogenase Troponin T C-Reactive Protein Total Protein Albumin LDL Cholesterol Direct Urine Creatinine Urine Total Protein Salicylates Acetaminophen Crossmatch 11/11/21 11/11/21 11/11/21 13:53 16:31 17:13 WBC RBC Hgb Hct MCH RDW Plt Count Lymph % (Auto) [place] % (Auto) Lymph # (Auto) [place] # (Auto) Seg Neutrophils % Seg Neuts % (Manual) Lymphocytes % (Manual) Nucleated RBC % Seg Neutrophils # Seg Neutrophils # Man Monocytes # (Manual) PT INR APTT D-Dimer Heparin Anti-Xa Level ABG pH 7.475 H ABG pO2 64.1 L ABG HCO3 32.4 H ABG O2 Saturation ABG Base Excess 8.0 H ABG Hemoglobin 7.6 L Oxyhemoglobin 94.0 L Sodium Potassium Chloride Carbon Dioxide BUN Creatinine Glucose POC Glucose 116 H 125 H Hemoglobin A1c Lactic Acid Calcium Phosphorus Magnesium Ferritin AST ALT Alkaline Phosphatase Lactate Dehydrogenase Troponin T C-Reactive Protein Total Protein Albumin LDL Cholesterol Direct Urine Creatinine Urine Total Protein Salicylates Acetaminophen Crossmatch 11/11/21 11/11/21 11/12/21 20:40 23:35 03:30 WBC 17.7 H RBC 2.37 L Hgb 6.3 L Hct 20.0 L MCH 27 L RDW 15.5 H Plt Count Lymph % (Auto) [place] % (Auto) Lymph # (Auto) [place] # (Auto) Seg Neutrophils % Seg Neuts % (Manual) Lymphocytes % (Manual) Nucleated RBC % Seg Neutrophils # Seg Neutrophils # Man Monocytes # (Manual) PT INR APTT D-Dimer Heparin Anti-Xa Level 0.26 L ABG pH ABG pO2 ABG HCO3 ABG O2 Saturation ABG Base Excess ABG Hemoglobin Oxyhemoglobin Sodium Potassium Chloride Carbon Dioxide BUN Creatinine Glucose POC Glucose 118 H Hemoglobin A1c Lactic Acid Calcium Phosphorus Magnesium Ferritin AST ALT Alkaline Phosphatase Lactate Dehydrogenase Troponin T C-Reactive Protein Total Protein Albumin LDL Cholesterol Direct Urine Creatinine Urine Total Protein Salicylates Acetaminophen Crossmatch 11/12/21 11/12/21 11/12/21 03:30 04:15 11:53 WBC RBC Hgb Hct MCH RDW Plt Count Lymph % (Auto) [place] % (Auto) Lymph # (Auto) [place] # (Auto) Seg Neutrophils % Seg Neuts % (Manual) Lymphocytes % (Manual) Nucleated RBC % Seg Neutrophils # Seg Neutrophils # Man Monocytes # (Manual) PT INR APTT D-Dimer Heparin Anti-Xa Level ABG pH ABG pO2 ABG HCO3 ABG O2 Saturation ABG Base Excess ABG Hemoglobin Oxyhemoglobin Sodium Potassium Chloride Carbon Dioxide 33 H BUN 38 H Creatinine 1.3 H Glucose 102 H POC Glucose 62 L Hemoglobin A1c Lactic Acid Calcium 8.2 L Phosphorus Magnesium Ferritin AST ALT Alkaline Phosphatase Lactate Dehydrogenase Troponin T C-Reactive Protein Total Protein Albumin LDL Cholesterol Direct Urine Creatinine Urine Total Protein Salicylates Acetaminophen Crossmatch See Detail 11/12/21 11/12/21 11/12/21 17:20 19:14 23:11 WBC RBC Hgb 6.2 L Hct 19.5 L* MCH RDW Plt Count Lymph % (Auto) [place] % (Auto) Lymph # (Auto) [place] # (Auto) Seg Neutrophils % Seg Neuts % (Manual) Lymphocytes % (Manual) Nucleated RBC % Seg Neutrophils # Seg Neutrophils # Man Monocytes # (Manual) PT INR APTT D-Dimer Heparin Anti-Xa Level ABG pH ABG pO2 ABG HCO3 ABG O2 Saturation ABG Base Excess ABG Hemoglobin Oxyhemoglobin Sodium Potassium Chloride Carbon Dioxide BUN Creatinine Glucose POC Glucose 115 H 131 H Hemoglobin A1c Lactic Acid Calcium Phosphorus Magnesium Ferritin AST ALT Alkaline Phosphatase Lactate Dehydrogenase Troponin T C-Reactive Protein Total Protein Albumin LDL Cholesterol Direct Urine Creatinine Urine Total Protein Salicylates Acetaminophen Crossmatch 11/13/21 11/13/21 11/13/21 00:13 04:17 04:17 WBC 23.8 H RBC 2.84 L Hgb 7.4 L 7.8 L Hct 23.3 L 24.9 L MCH 27 L RDW 15.4 H Plt Count Lymph % (Auto) [place] % (Auto) Lymph # (Auto) [place] # (Auto) Seg Neutrophils % Seg Neuts % (Manual) Lymphocytes % (Manual) Nucleated RBC % Seg Neutrophils # Seg Neutrophils # Man Monocytes # (Manual) PT INR APTT D-Dimer Heparin Anti-Xa Level ABG pH ABG pO2 ABG HCO3 ABG O2 Saturation ABG Base Excess ABG Hemoglobin Oxyhemoglobin Sodium 146 H Potassium Chloride Carbon Dioxide BUN 44 H Creatinine 1.6 H Glucose 144 H POC Glucose Hemoglobin A1c Lactic Acid Calcium 7.9 L Phosphorus 5.10 H D Magnesium Ferritin AST ALT Alkaline Phosphatase Lactate Dehydrogenase Troponin T C-Reactive Protein Total Protein Albumin LDL Cholesterol Direct Urine Creatinine Urine Total Protein Salicylates Acetaminophen Crossmatch 11/13/21 11/13/21 11/13/21 05:52 10:54 15:57 WBC RBC Hgb Hct MCH RDW Plt Count Lymph % (Auto) [place] % (Auto) Lymph # (Auto) [place] # (Auto) Seg Neutrophils % Seg Neuts % (Manual) Lymphocytes % (Manual) Nucleated RBC % Seg Neutrophils # Seg Neutrophils # Man Monocytes # (Manual) PT INR APTT D-Dimer Heparin Anti-Xa Level ABG pH ABG pO2 ABG HCO3 ABG O2 Saturation ABG Base Excess ABG Hemoglobin Oxyhemoglobin Sodium Potassium Chloride Carbon Dioxide BUN Creatinine Glucose POC Glucose 123 H 147 H 207 H Hemoglobin A1c Lactic Acid Calcium Phosphorus Magnesium Ferritin AST ALT Alkaline Phosphatase Lactate Dehydrogenase Troponin T C-Reactive Protein Total Protein Albumin LDL Cholesterol Direct Urine Creatinine Urine Total Protein Salicylates Acetaminophen Crossmatch 11/13/21 11/13/21 11/14/21 16:01 23:18 04:55 WBC 23.9 H RBC 2.86 L Hgb 6.5 L 8.3 L Hct 20.3 L 24.5 L MCH RDW Plt Count Lymph % (Auto) [place] % (Auto) Lymph # (Auto) [place] # (Auto) Seg Neutrophils % Seg Neuts % (Manual) Lymphocytes % (Manual) Nucleated RBC % Seg Neutrophils # Seg Neutrophils # Man Monocytes # (Manual) PT INR APTT D-Dimer Heparin Anti-Xa Level ABG pH ABG pO2 ABG HCO3 ABG O2 Saturation ABG Base Excess ABG Hemoglobin Oxyhemoglobin Sodium Potassium Chloride Carbon Dioxide BUN Creatinine Glucose POC Glucose 209 H Hemoglobin A1c Lactic Acid Calcium Phosphorus Magnesium Ferritin AST ALT Alkaline Phosphatase Lactate Dehydrogenase Troponin T C-Reactive Protein Total Protein Albumin LDL Cholesterol Direct Urine Creatinine Urine Total Protein Salicylates Acetaminophen Crossmatch 11/14/21 11/14/21 11/14/21 04:55 05:09 11:35 WBC RBC Hgb Hct MCH RDW Plt Count Lymph % (Auto) [place] % (Auto) Lymph # (Auto) [place] # (Auto) Seg Neutrophils % Seg Neuts % (Manual) Lymphocytes % (Manual) Nucleated RBC % Seg Neutrophils # Seg Neutrophils # Man Monocytes # (Manual) PT INR APTT D-Dimer Heparin Anti-Xa Level ABG pH ABG pO2 ABG HCO3 ABG O2 Saturation ABG Base Excess ABG Hemoglobin Oxyhemoglobin Sodium 148 H Potassium Chloride 109.0 H Carbon Dioxide BUN 42 H Creatinine 1.6 H Glucose 184 H POC Glucose 169 H 154 H Hemoglobin A1c Lactic Acid Calcium 8.0 L Phosphorus Magnesium Ferritin AST ALT Alkaline Phosphatase Lactate Dehydrogenase Troponin T C-Reactive Protein Total Protein Albumin LDL Cholesterol Direct Urine Creatinine Urine Total Protein Salicylates Acetaminophen Crossmatch 11/14/21 11/14/21 11/15/21 16:57 23:11 04:36 WBC RBC Hgb Hct MCH RDW Plt Count Lymph % (Auto) [place] % (Auto) Lymph # (Auto) [place] # (Auto) Seg Neutrophils % Seg Neuts % (Manual) Lymphocytes % (Manual) Nucleated RBC % Seg Neutrophils # Seg Neutrophils # Man Monocytes # (Manual) PT INR APTT D-Dimer Heparin Anti-Xa Level ABG pH ABG pO2 ABG HCO3 ABG O2 Saturation ABG Base Excess ABG Hemoglobin Oxyhemoglobin Sodium 151 H Potassium Chloride 111.2 H Carbon Dioxide BUN 36 H Creatinine 1.3 H Glucose 136 H POC Glucose 124 H 118 H Hemoglobin A1c Lactic Acid Calcium 8.1 L Phosphorus Magnesium Ferritin AST ALT Alkaline Phosphatase Lactate Dehydrogenase Troponin T C-Reactive Protein Total Protein Albumin LDL Cholesterol Direct Urine Creatinine Urine Total Protein Salicylates Acetaminophen Crossmatch 11/15/21 11/15/21 11/16/21 11:18 21:49 00:15 WBC RBC Hgb Hct MCH RDW Plt Count Lymph % (Auto) [place] % (Auto) Lymph # (Auto) [place] # (Auto) Seg Neutrophils % Seg Neuts % (Manual) Lymphocytes % (Manual) Nucleated RBC % Seg Neutrophils # Seg Neutrophils # Man Monocytes # (Manual) PT INR APTT D-Dimer Heparin Anti-Xa Level ABG pH ABG pO2 ABG HCO3 ABG O2 Saturation ABG Base Excess ABG Hemoglobin Oxyhemoglobin Sodium Potassium Chloride Carbon Dioxide BUN Creatinine Glucose POC Glucose 154 H 154 H 146 H Hemoglobin A1c Lactic Acid Calcium Phosphorus Magnesium Ferritin AST ALT Alkaline Phosphatase Lactate Dehydrogenase Troponin T C-Reactive Protein Total Protein Albumin LDL Cholesterol Direct Urine Creatinine Urine Total Protein Salicylates Acetaminophen Crossmatch 11/16/21 11/16/21 11/16/21 05:11 05:11 05:37 WBC 18.2 H RBC 2.92 L Hgb 8.3 L Hct 26.1 L MCH RDW 15.8 H Plt Count Lymph % (Auto) 6.3 L [place] % (Auto) 10.2 H Lymph # (Auto) [place] # (Auto) 1.9 H Seg Neutrophils % 81.7 H Seg Neuts % (Manual) Lymphocytes % (Manual) Nucleated RBC % Seg Neutrophils # 14.9 H Seg Neutrophils # Man Monocytes # (Manual) PT INR APTT D-Dimer Heparin Anti-Xa Level ABG pH ABG pO2 ABG HCO3 ABG O2 Saturation ABG Base Excess ABG Hemoglobin Oxyhemoglobin Sodium 146 H Potassium Chloride 108.0 H Carbon Dioxide BUN 25 H Creatinine Glucose 123 H POC Glucose 109 H Hemoglobin A1c Lactic Acid Calcium 7.8 L Phosphorus Magnesium Ferritin AST ALT Alkaline Phosphatase Lactate Dehydrogenase Troponin T C-Reactive Protein Total Protein Albumin LDL Cholesterol Direct Urine Creatinine Urine Total Protein Salicylates Acetaminophen Crossmatch 11/16/21 11/16/21 11/17/21 11:22 23:55 04:33 WBC RBC Hgb Hct MCH RDW Plt Count Lymph % (Auto) [place] % (Auto) Lymph # (Auto) [place] # (Auto) Seg Neutrophils % Seg Neuts % (Manual) Lymphocytes % (Manual) Nucleated RBC % Seg Neutrophils # Seg Neutrophils # Man Monocytes # (Manual) PT INR APTT D-Dimer Heparin Anti-Xa Level ABG pH ABG pO2 ABG HCO3 ABG O2 Saturation ABG Base Excess ABG Hemoglobin Oxyhemoglobin Sodium Potassium Chloride Carbon Dioxide BUN 20 H Creatinine Glucose POC Glucose 136 H 113 H Hemoglobin A1c Lactic Acid Calcium 7.5 L Phosphorus Magnesium Ferritin AST ALT Alkaline Phosphatase Lactate Dehydrogenase Troponin T C-Reactive Protein Total Protein Albumin LDL Cholesterol Direct Urine Creatinine Urine Total Protein Salicylates Acetaminophen Crossmatch 11/17/21 11/18/21 11/18/21 23:22 04:53 04:53 WBC 13.0 H RBC 2.99 L Hgb 8.5 L Hct 26.4 L MCH RDW Plt Count Lymph % (Auto) 9.5 L [place] % (Auto) 9.8 H Lymph # (Auto) [place] # (Auto) 1.3 H Seg Neutrophils % 78.3 H Seg Neuts % (Manual) Lymphocytes % (Manual) Nucleated RBC % Seg Neutrophils # 10.2 H Seg Neutrophils # Man Monocytes # (Manual) PT INR APTT D-Dimer Heparin Anti-Xa Level ABG pH ABG pO2 ABG HCO3 ABG O2 Saturation ABG Base Excess ABG Hemoglobin Oxyhemoglobin Sodium Potassium Chloride Carbon Dioxide BUN 18 H Creatinine Glucose 106 H POC Glucose 112 H Hemoglobin A1c Lactic Acid Calcium 8.1 L Phosphorus Magnesium Ferritin AST ALT Alkaline Phosphatase Lactate Dehydrogenase Troponin T C-Reactive Protein Total Protein Albumin LDL Cholesterol Direct Urine Creatinine Urine Total Protein Salicylates Acetaminophen Crossmatch 11/18/21 11/18/21 11/19/21 11:35 17:42 14:38 WBC RBC Hgb Hct MCH RDW Plt Count Lymph % (Auto) [place] % (Auto) Lymph # (Auto) [place] # (Auto) Seg Neutrophils % Seg Neuts % (Manual) Lymphocytes % (Manual) Nucleated RBC % Seg Neutrophils # Seg Neutrophils # Man Monocytes # (Manual) PT INR APTT D-Dimer Heparin Anti-Xa Level ABG pH ABG pO2 ABG HCO3 ABG O2 Saturation ABG Base Excess ABG Hemoglobin Oxyhemoglobin Sodium Potassium Chloride 97.5 L Carbon Dioxide 31 H BUN Creatinine Glucose 146 H POC Glucose 143 H 132 H Hemoglobin A1c Lactic Acid Calcium Phosphorus Magnesium 1.60 L Ferritin AST ALT Alkaline Phosphatase Lactate Dehydrogenase Troponin T C-Reactive Protein Total Protein Albumin LDL Cholesterol Direct Urine Creatinine Urine Total Protein Salicylates Acetaminophen Crossmatch 11/19/21 11/19/21 11/20/21 16:24 23:58 07:42 WBC RBC 3.01 L Hgb 8.6 L Hct 26.7 L MCH RDW 15.4 H Plt Count Lymph % (Auto) [place] % (Auto) Lymph # (Auto) [place] # (Auto) Seg Neutrophils % Seg Neuts % (Manual) Lymphocytes % (Manual) Nucleated RBC % Seg Neutrophils # Seg Neutrophils # Man Monocytes # (Manual) PT INR APTT D-Dimer Heparin Anti-Xa Level ABG pH ABG pO2 ABG HCO3 ABG O2 Saturation ABG Base Excess ABG Hemoglobin Oxyhemoglobin Sodium Potassium Chloride Carbon Dioxide BUN Creatinine Glucose POC Glucose 129 H 125 H Hemoglobin A1c Lactic Acid Calcium Phosphorus Magnesium Ferritin AST ALT Alkaline Phosphatase Lactate Dehydrogenase Troponin T C-Reactive Protein Total Protein Albumin LDL Cholesterol Direct Urine Creatinine Urine Total Protein Salicylates Acetaminophen Crossmatch 11/20/21 11/20/21 11/20/21 07:42 11:25 22:59 WBC RBC Hgb Hct MCH RDW Plt Count Lymph % (Auto) [place] % (Auto) Lymph # (Auto) [place] # (Auto) Seg Neutrophils % Seg Neuts % (Manual) Lymphocytes % (Manual) Nucleated RBC % Seg Neutrophils # Seg Neutrophils # Man Monocytes # (Manual) PT INR APTT D-Dimer Heparin Anti-Xa Level ABG pH ABG pO2 ABG HCO3 ABG O2 Saturation ABG Base Excess ABG Hemoglobin Oxyhemoglobin Sodium Potassium Chloride Carbon Dioxide 31 H BUN Creatinine Glucose POC Glucose 116 H 113 H Hemoglobin A1c Lactic Acid Calcium Phosphorus Magnesium Ferritin AST ALT Alkaline Phosphatase Lactate Dehydrogenase Troponin T C-Reactive Protein Total Protein Albumin LDL Cholesterol Direct Urine Creatinine Urine Total Protein Salicylates Acetaminophen Crossmatch 11/21/21 10:50 WBC RBC Hgb Hct MCH RDW Plt Count Lymph % (Auto) [place] % (Auto) Lymph # (Auto) [place] # (Auto) Seg Neutrophils % Seg Neuts % (Manual) Lymphocytes % (Manual) Nucleated RBC % Seg Neutrophils # Seg Neutrophils # Man Monocytes # (Manual) PT INR APTT D-Dimer Heparin Anti-Xa Level ABG pH ABG pO2 ABG HCO3 ABG O2 Saturation ABG Base Excess ABG Hemoglobin Oxyhemoglobin Sodium Potassium Chloride Carbon Dioxide BUN Creatinine Glucose POC Glucose 156 H Hemoglobin A1c Lactic Acid Calcium Phosphorus Magnesium Ferritin AST ALT Alkaline Phosphatase Lactate Dehydrogenase Troponin T C-Reactive Protein Total Protein Albumin LDL Cholesterol Direct Urine Creatinine Urine Total Protein Salicylates Acetaminophen Crossmatch Prior PFT's, U/S of legs: report reviewed, image reviewed Additional Studies: DUPLEX DOPPLER LOWER EXTREMITY VEINS, BILATERAL 11/21/21 INDICATION / CLINICAL INFORMATION: dvt. reassess. Inability to anticoagulate.. TECHNIQUE: Duplex doppler imaging was performed through the veins of both lower extremities using venous compression and other maneuvers. COMPARISON: Bilateral lower extremity venous Doppler 11/13/2021. FINDINGS: RIGHT COMMON FEMORAL VEIN: Negative. RIGHT FEMORAL VEIN: Negative. RIGHT POPLITEAL VEIN: Negative. RIGHT CALF VEINS: Occlusive thrombus is visualized within the peroneal veins. LEFT COMMON FEMORAL VEIN: Negative. LEFT FEMORAL VEIN: Negative. LEFT POPLITEAL VEIN: Near occlusive thrombus. LEFT CALF VEINS: Occlusive thrombus. ADDITIONAL FINDINGS: Small left Alejo's cyst is again visualized. IMPRESSION: 1. Acute occlusive thrombus is now visualized within the right peroneal veins. 2. There is propagation of the left calf DVT into the popliteal vein on today's exam (near occlusive). Allied health notes reviewed: nursing
--- NOTE | 2021-11-21 20:42 | Progress Note ---
Assessment and Plan Assessment and plan: 66 YO Female with Obesity was attending [facility] services when the patient collapsed and lost consciousness. Witnesses began CPR. EMS was notified and upon arrival the patient was found to be in distress without perfusing cardiac rhythm. Patient initiated on ACLS protocol and subsequently intubated in the field and transported to ED. The patient regained spontaneous circulation during transport. She was found to have acute hypoxemic respiratory failure, septic shock suspected secondary to aspiration pneumonia, metabolic acidosis, toxic metabolic encephalopathy, shock liver, and cardiac arrest with return of perfusing cardiac rhythm after initiation of ACLS protocol. Patient initiated on sepsis protocol as well as pneumonia protocol. Patient admitted to ICU. No reports of fever, chills, chest pain, palpitation, productive cough, skin rash, recent contact, known exposure to COVID-19. Patient improved, extubated on 11/11 and transferred to floor on 11/19. s/p cardiac arrest, collapse at [facility], HFrEF, shock/hypotension resolved Atrial fibrillation/atrial flutter -Cardiac arrest and collapse at [facility] with ROSC -Cardiology consulted, appreciate recommendations - S/p Cardizem gtt- d/c due to low EF; now on PO Amio -s/p vasopressor support with levophed -Echocardiogram shows left ventricular systolic function severely decreased, L VEF 25 to 30%, no pericardial effusion -proBNP 5622 -Continue Lasix 20 mg twice daily, BB, spironolactone, losartan -No significant volume overload clinically Acute hypoxic respiratory failure, right pneumothorax, Angioedema (resolved), pulmonary edema -CCM consulted, appreciate recommendations -Intubated on 10/29 and extubated on 11/11 -Bipap q HS and prn, at high risk for KOLBY with morbid obesity -NC during day -s/p right chest tube for pneumothorax -s/p steroids for angioedema -On Lasix for pulmonary edema. transaminitis likely shocked liver - resolved Acute kidney injury likely secondary to vasomotor nephropathy, hypernatremia -Nephrology consulted, appreciate recommendations -Krishna replaced 11/05 urinary retention -FeNa 0.05 indicating pre-renal -SIERRA and hyponatremia resolved. Creatinine 1.0 on Lasix IV Shock cardiogenicsuspected sepsis -Fever was as high as 102 with a leukocytosis Blood, urine and sputum cultures negative -COVID-19 PCR negative -S/p empiric antibiotic therapy for possible pneumonia with Rocephin and azithromycin () -S/p Levophed gtt for hypotension -Fever and leukocytosis resolved -Monitor WBC and temperature curve Acute Metabolic encephalopathy, agitation/anxiety -Etiology likely from a cardiac arrest, shock and cerebral hypoperfusion CT head no acute focal parenchymal lesion in the brain -Neurology consulted, appreciate recommendations -EEG and MRI noted, Neuro recommend to cut down on sedation as possible Mental status significantly improved, currently fairly alert and oriented. Answers appropriately. Acute DVT in the left posterior tibial vein and bilateral peroneal veins, Anemia, retroperitoneal bleed -D-dimer greater than 10,000 -CTA chest with no evidence of PE -Bilateral lower extremity ultrasound positive for DVT -Heparin gtt on hold d/t anemia, received PRBC x4 -vasuclar surgery consulted, appreciate recommendations -recommended multiphasic CT angio of the abdomen and pelvis with and without contrast if H/H drops and did not recommend IVC filter at this time as the DVTs are infrapopliteal and recommends a follow-up DVT study weekly for 2 weeks. Repeat venous duplex ultrasound on 11/21 showed progression of left peroneal DVT extending into popliteal vein. Vascular surgery scheduled for IVC filter placement on 11/22. -Trend CBC -SCDs to BLE while in bed -Transfuse hemoglobin less than 7 -Monitor for signs of bleeding -Hemoglobin stable, 8.6 Hypertension, not able be controlled Increase losartan 200 mg daily and add hydralazine as needed. Hyperglycemia ,resolved) -Avoid hypoglycemia -Hbg A1C 6.7 -SSI and lantus q hs (titrate as needed) -Accu-Cheks q. 6 Morbid obesity High risk for KOLBY On nightly BiPAP Deconditioning PT/OT Discussed the patient and the nursing staff. Hospital Course to Date: 10/30: Intubated and sedated, on fentanyl gtt. Open eyes spontaneously but does not follow any commands. On vasopressors, titrate as tolerated for MAP above 65. Patient febrile overnight, continue empiric IV Abx, culture data and COVID PCR pending. Patient is also s/p CT placement due to spontaneous pneumothorax. 2D echo is pending and Cardiology is consulted. 10/31: Patient remains intubated and following commands. Levophed drip stopped and potassium repleted. Patient started on tube feeding. Remains in soft bilateral restraints. 11/01: RN noted ST changes on BSM and 12 lead EKG obtained which showed ST. Given Ativan 1mg for agitation as she is maxed on fentanyl drip and IV push fentanyl did not seem to help. Patient was started on CPAP this morning by RT but remained on fentanyl drip and was having periods of apnea. Plan was to retry CPAP again in the p.m. with sedation off. 11/02: Rate increased r/t hypercapnea on ABG, sedation reduced. Given kionex for hyperkalemia and was started on levophed overnight for hypotension. 11/03: Overnight patient had tachycardia and was given Cardizem and Lopressor. Lopressor was repeated in the a.m. due to tachycardia. Patient will be started on amiodarone with a bolus per cardiology. Patient started on normal saline per liter per [facility] and steroids for angioedema. Noted to have bright red blood when suctioned from oh ETT. Remains on heparin drip as H/H is stable for now. Will reevaluate. Fentanyl drip was restarted last night due to agitation. Dr. Flores updated family today 11/04: Patient was sedated on fentanyl however off sedation is able to follow commands, a.m. labs completed in the p.m. and show hyperkalemia with increased renal function studies. Nephrology, neurology consulted by [facility]. Given Kayexalate, insulin and D50 for hyperkalemia. Patient remains on amiodarone. 11/05: Patient needed to be sedated on fentanyl again to today. overnight krishna was replaced. Hyperkalemia->given kionex 60 for 5.6. Repeat K 6-> Dr. Grant informed and requested bumex, kionex, insulin, d50, calcium gluconate and sodium bicarb with repeat BMP in 2 hours which were placed. HR remains elevated. 11/06: Patient remained in atrial fibrillation/atrial flutter with heart rate in the 150s despite being on amnio drip and was given amnio bolus, Cardizem bolus and started on Cardizem drip by cardiology. Patient is on beta-blockers p.o. scheduled and to feedings changed to Nepro. Kayexalate was given in the morning by nephrology due to hyperkalemia. 11/07: Patient is only responsive to mild stimuli, precedex added in an attempt to wean off fentanyl gtt to better assess her mental status. Neurology also on consult, pending MRI and EEG. Patient remains in Aflutter this am, HR in the 80 to 90s, still on amiodarone and heparin gtt. 11/08: Fentanyl gtt is off, only on precedex gtt. Patient is still not following any commands. MRI brain and EEG completed. Neuro recommendations noted, sedatives agents decreased. FWF added for hypernatremia and low K repleted, repeat labs ordered. Placed a call and spoke with patient's daughter, Eva Brown . She was updated on patient's conditions and status. All questions and concerns were voiced at this time. 11/09: Patient is awake and alert this am, following commands and appropriate. Remains on precedex gtt, plan for possible PST today. Hypertensive overnight, meds adjusted by Cardio and PRN Hydralazine added for SBP greater than 160. CT dislodged overnight, CXR is stable with no significant change. F/U CXR in the a m. Patient's daughter, Eva Brown, visited with patient. She was updated on patient's status and goal of care for today. All questions and concerns were voiced at this time. 11/10: Mentation remains intact, still on precedex gtt. This am CXR noted still with fluid overload s/p X1 dose of IV lasix, good response from IV lasix overnight. Hypernatremia improved, D5W d/dayday. Still with persistent hypokalemia, continue electrolytes replacement and frequent lab check. Daily IV lasix and aldactone added by Cardio. Patient is also with persistent low grade fevers overnight, leukocytosis with mild improvement this am. Will get a repeat sputum culture, hold off on IV abx for now. Consider ID consult if fevers and leukocytosis persist. Patient tolerated PST X4hrs yesterday. PST again today, plan to wean to extubate if tolerated. 11/11: IAM overnight. Off precedex gtt and tolerated PST this am. Plan to wean to extubate today. Additional IV lasix given, plan to keep patient at a net negative balance for better lung compliance. F/U CXR in the am. K improved this am, repeat BMP this afternoon since diuresing. Remains with low grade fevers, leukocytosis downtrending, will continue to monitor. Speech/PT/OT ordered 11/12: S/p extubation, now stable on 3L NC. This am CXR noted with no significant changes, lasix changed to IV X4days BID. Drop in H&H this am, and Lt. flank ecchymosis noted. Heparin gtt on hold for now and orders placed for 1 unit of PRBCs and Ct Abd/Pelvis w/o con to r/o retroperitoneal bleed. Pending speech swallow eval, keep patient NPO for now. Patient is stable for IMCU status 11/13: Patient with increased WOB and tachycardia this am, patient was placed on Bipap and precedex gtt was resumed. CXR with mild improvement. CT Abd/Pelvis also reviewed large hematomas noted at the Lt. retroperitoneum and left posterior lateral abdominal wall. Heparin gtt is already on hold, patient is hemodynamically stable. Vascular Surgery consulted for possible IVC filter eval. Patient s/p 2units of PRBCs, will continue to trend H&H and transfuse if hbg is less than 7. Worsening renal function this am, IF diuretic on hold for now. Patient is also febrile with spike in wbcs most likely reactive to bleed, will panculture and hold off on IV Abx for now. Patient also failed speech bedside swallow eval yesterday, NGT in placed plan to resume enteral nutrition 11/14: Patient had bilateral lower extremity Doppler ultrasound and vascular surgery has recommended multiphasic CT angio of the abdomen and pelvis with and without contrast if H/H drops and does not recommend IVC filter at this time as the DVTs are infrapopliteal and recommends a DVT study weekly for 2 weeks. FWF 250 q4 ml per nephro. Started on as needed Xanax and p.o. amiodarone. She did not pass her ST evaluation today. Will be transferred to IM. 11/15: Resting comfortably on encounter. Speech cleared for pureed diet. Remains on 3l satting 98 % on bedside encounter. Does not appear to be in respiratory di stress. Will continue to hold AC, No ivc filter planned at this time. qweekly doppler to monitor for migration of DVT per vascular. If demonstrated, will consider IVC filter. CBC ordered for tomorrow, will continue monitoring in light of retroperitoneal hematoma. FWF increased by nephrology to 350cc q4hr d/t hypernatremia. UOP/renal function both improved. D/w cardiology, will continue amiodorone an additional 24hrs. Plan to change dosing of metoprolol. Continue to wean off of precedex. Continue xanax scheduled for anxiety. physical therapy recs noted, fernanda / ltac will discuss with CM. Continue IMCU monitoring. 11/16: Pulmonary congestion this AM. CXR ordered. Lasix 40 mg IV x 1 order this A M. Will monitor for 24 hrs. potential downgrade to medical floor tomorrow. 11/17: Persisting pulmonary congestion, was on bipap overnight into this AM. Will order additional lasix 40 mg IV x 2. CXR ordered for AM. Possible downgrade to floor tomorrow. Anticipate d/c sunday. 11/18: Patient seen and examined, continue weaning, will continue diuresis BID, discussed with daughter. 11/19: Patient seen and examined this morning doing well no acute distress noted. Lasix was increased to twice daily to 20 mg IV. Clinically improving. Patient will be transferred to telemetry today can be switched to Lasix p.o. twice daily in a.m. She has her weekly Doppler of lower extremity tomorrow vascular is following for this. She was taken off anticoagulation secondary to retroperitoneal bleed., The anticoagulation was started initially for atrial fi brillation and an infrapopliteal DVT. During her hospital stay she had a prolonged ventilator management and was successfully weaned off. She also received a total of 4 units of packed red blood cell. Hemoglobin has remained stable. Anticipate discharge in next 48 hours if continues to clinically stay stable. : Transferred from ICU on 11/19. Progressive improving. Currently awake and oriented. O2 weaned to 4 L. Hemodynamically stable. BP control being optimized. MiraLAX for constipation. Hemoglobin stable on the heparin infusion, being monitored closely with history of retroperitoneal bleed. 11/21: Patient remains mostly bedridden. She is awake and oriented on 2 L of O2. Repeat ultrasound showed extension of left peroneal DVT into popliteal vein. Heparin was discontinued for significant retroperitoneal bleed and off anticoagulation since. Vascular surgery plan for placement of IVC filter tomorrow. Patient is chest pains, palpitations, hemoptysis. She has some coug h. Left lower extremity pain likely from DVT better today. Discussed with the patient, nursing staff and vascular surgery. History Interval history: Patient remains mostly bedridden. She is awake and oriented on 2 L of O2. Repeat ultrasound showed extension of DVT in lower extremity. Heparin was discontinued for significant retroperitoneal bleed and off anticoagulation since. Vascular surgery plan for placement of IVC filter tomorrow. Patient is chest pains, palpitations, hemoptysis. She has some cough. Left lower extremity pain better today. Hospitalist Physical - Constitutional Vitals: Temp Pulse Resp BP Pulse Ox 98.8 F 102 H 18 159/90 96 11/21/21 19:35 11/21/21 19:35 11/21/21 19:35 11/21/21 19:35 11/21/21 19:35 General appearance: Present: no acute distress, obese (Morbidly obese) - EENT Eyes: Present: PERRL, EOM intact ENT: other (Oropharynx crowded) - Neck Neck: Present: supple - Respiratory Respiratory effort: normal Respiratory: bilateral: CTA - Cardiovascular Rhythm: regular - Extremities Extremity abnormal: edema - Abdominal General gastrointestinal: soft, non-tender, normal bowel sounds, other (Obese) - Integumentary Integumentary: Absent: rash - Psychiatric Psychiatric: other (Somewhat anxious) - Neurologic Neurologic: other (Alert and oriented. Normal speech. Strength in the upper extremities normal. -3/5 in lower extremities.) HEART Score - HEART Score Troponin: Troponin T 1.150 ng/mL (0.00-0.029) H* D 10/29/21 22:34 Results - Labs CBC & Chem 7: 11/20/21 07:42 11/22/21 05:10 Labs: Laboratory Last Values WBC 10.3 K/mm3 (4.5-11.0) 11/20/21 07:42 RBC 3.01 M/mm3 (3.65-5.03) L 11/20/21 07:42 Hgb 8.6 gm/dl (10.1-14.3) L 11/20/21 07:42 Hct 26.7 % (30.3-42.9) L 11/20/21 07:42 MCV 89 fl (79-97) 11/20/21 07:42 MCH 28 pg (28-32) 11/20/21 07:42 MCHC 32 % (30-34) 11/20/21 07:42 RDW 15.4 % (13.2-15.2) H 11/20/21 07:42 Plt Count 331 K/mm3 (140-440) 11/20/21 07:42 Lymph % (Auto) 9.5 % (13.4-35.0) L 11/18/21 04:53 [place] % (Auto) 9.8 % (0.0-7.3) H 11/18/21 04:53 Eos % (Auto) 1.8 % (0.0-4.3) 11/18/21 04:53 Baso % (Auto) 0.6 % (0.0-1.8) 11/18/21 04:53 Lymph # (Auto) 1.2 K/mm3 (1.2-5.4) 11/18/21 04:53 [place] # (Auto) 1.3 K/mm3 (0.0-0.8) H 11/18/21 04:53 Eos # (Auto) 0.2 K/mm3 (0.0-0.4) 11/18/21 04:53 Baso # (Auto) 0.1 K/mm3 (0.0-0.1) 11/18/21 04:53 Add Manual Diff Complete 11/07/21 06:30 Total Counted 100 11/07/21 06:30 Seg Neutrophils % 78.3 % (40.0-70.0) H 11/18/21 04:53 Seg Neuts % (Manual) 77.0 % (40.0-70.0) H 11/07/21 06:30 Band Neutrophils % 1.0 % 11/07/21 06:30 Lymphocytes % (Manual) 11.0 % (13.4-35.0) L 11/07/21 06:30 Reactive Lymphs % (Man) 3.0 % 11/07/21 06:30 Monocytes % (Manual) 2.0 % (0.0-7.3) 11/07/21 06:30 Eosinophils % (Manual) 0 % (0.0-4.3) 11/07/21 06:30 Basophils % (Manual) 0 % (0.0-1.8) 11/07/21 06:30 Metamyelocytes % 1.0 % 11/07/21 06:30 Myelocytes % 5.0 % 11/07/21 06:30 Promyelocytes % 0 % 11/07/21 06:30 Blast Cells % 0 % 11/07/21 06:30 Nucleated RBC % 2.0 % (0.0-0.9) H 11/07/21 06:30 Seg Neutrophils # 10.2 K/mm3 (1.8-7.7) H 11/18/21 04:53 Seg Neutrophils # Man 12.3 K/mm3 (1.8-7.7) H 11/07/21 06:30 Band Neutrophils # 0.2 K/mm3 11/07/21 06:30 Lymphocytes # (Manual) 1.8 K/mm3 (1.2-5.4) 11/07/21 06:30 Abs React Lymphs (Man) 0.5 K/mm3 11/07/21 06:30 Monocytes # (Manual) 0.3 K/mm3 (0.0-0.8) 11/07/21 06:30 Eosinophils # (Manual) 0.0 K/mm3 (0.0-0.4) 11/07/21 06:30 Basophils # (Manual) 0.0 K/mm3 (0.0-0.1) 11/07/21 06:30 Metamyelocytes # 0.2 K/mm3 11/07/21 06:30 Myelocytes # 0.8 K/mm3 11/07/21 06:30 Promyelocytes # 0.0 K/mm3 11/07/21 06:30 Blast Cells # 0.0 K/mm3 11/07/21 06:30 WBC Morphology Not Reportable 11/07/21 06:30 Hypersegmented Neuts Not Reportable 11/07/21 06:30 Hyposegmented Neuts Not Reportable 11/07/21 06:30 Hypogranular Neuts Not Reportable 11/07/21 06:30 Smudge Cells Not Reportable 11/07/21 06:30 Toxic Granulation Not Reportable 11/07/21 06:30 Toxic Vacuolation Not Reportable 11/07/21 06:30 Dohle Bodies Not Reportable 11/07/21 06:30 Pelger-Huet Anomaly Not Reportable 11/07/21 06:30 Manny Rods Not Reportable 11/07/21 06:30 Platelet Estimate Consistent w auto 11/07/21 06:30 Clumped Platelets Not Reportable 11/07/21 06:30 Plt Clumps, EDTA Not Reportable 11/07/21 06:30 Large Platelets 1+ 11/07/21 06:30 Giant Platelets Not Reportable 11/07/21 06:30 Platelet Satelliting Not Reportable 11/07/21 06:30 Plt Morphology Comment Not Reportable 11/07/21 06:30 RBC Morphology Not Reportable 11/07/21 06:30 Dimorphic RBCs Not Reportable 11/07/21 06:30 Polychromasia Not Reportable 11/07/21 06:30 Hypochromasia 1+ 11/07/21 06:30 Poikilocytosis Not Reportable 11/07/21 06:30 Anisocytosis Not Reportable 11/07/21 06:30 Microcytosis Not Reportable 11/07/21 06:30 Macrocytosis Not Reportable 11/07/21 06:30 Spherocytes 1+ 11/07/21 06:30 Pappenheimer Bodies Not Reportable 11/07/21 06:30 Sickle Cells Not Reportable 11/07/21 06:30 Target Cells 1+ 11/07/21 06:30 Tear Drop Cells Not Reportable 11/07/21 06:30 Ovalocytes Not Reportable 11/07/21 06:30 Helmet Cells Not Reportable 11/07/21 06:30 Maradiaga-[place] Bodies Not Reportable 11/07/21 06:30 [place] Rings Not Reportable 11/07/21 06:30 [place] Cells Not Reportable 11/07/21 06:30 Bite Cells Not Reportable 11/07/21 06:30 Crenated Cell Not Reportable 11/07/21 06:30 Elliptocytes Not Reportable 11/07/21 06:30 Acanthocytes (Spur) Not Reportable 11/07/21 06:30 Rouleaux Not Reportable 11/07/21 06:30 Hemoglobin C Crystals Not Reportable 11/07/21 06:30 Schistocytes Not Reportable 11/07/21 06:30 Malaria parasites Not Reportable 11/07/21 06:30 Magdy Bodies Not Reportable 11/07/21 06:30 Hem Pathologist Commnt No 11/07/21 06:30 PT 17.2 Sec. (12.2-14.9) H 10/30/21 16:30 INR 1.27 (0.87-1.13) H 10/30/21 16:30 APTT 44.4 Sec. (24.2-36.6) H 10/30/21 16:30 D-Dimer > 64995 ng/mlDDU (0-234) H 10/30/21 Unknown Heparin Anti-Xa Level 0.62 U.I./ml (0.3-0.7) 11/12/21 03:30 ABG pH 7.475 pH Units (7.350-7.450) H 11/11/21 13:53 ABG pCO2 45.0 mm Hg 11/11/21 13:53 ABG pO2 64.1 mm Hg (80.0-90.0) L 11/11/21 13:53 ABG HCO3 32.4 mmol/L (20.0-26.0) H 11/11/21 13:53 ABG O2 Saturation 96.3 % (95.0-99.0) 11/11/21 13:53 ABG O2 Content 10.1 (0.0-44) 11/11/21 13:53 ABG Base Excess 8.0 mmol/L (-2.0-3.0) H 11/11/21 13:53 ABG Hemoglobin 7.6 gm/dl (12.0-16.0) L 11/11/21 13:53 ABG Carboxyhemoglobin 1.8 % (0.0-5.0) 11/11/21 13:53 ABG Methemoglobin 0.5 % (0.0-1.5) 11/11/21 13:53 Oxyhemoglobin 94.0 % (95.0-99.0) L 11/11/21 13:53 FiO2 32 % 11/11/21 13:53 Sodium 140 mmol/L (137-145) 11/20/21 07:42 Potassium 3.6 mmol/L (3.6-5.0) 11/20/21 07:42 Chloride 99.3 mmol/L (98-107) 11/20/21 07:42 Carbon Dioxide 31 mmol/L (22-30) H 11/20/21 07:42 Anion Gap 13 mmol/L 11/20/21 07:42 BUN 12 mg/dL (7-17) 11/20/21 07:42 Creatinine 1.0 mg/dL (0.6-1.2) 11/20/21 07:42 Estimated GFR > 60 ml/min 11/20/21 07:42 BUN/Creatinine Ratio 12 % 11/20/21 07:42 Glucose 98 mg/dL (65-100) 11/20/21 07:42 POC Glucose 156 mg/dL (70-105) H 11/21/21 10:50 Hemoglobin A1c 6.7 % (4-6) H 10/31/21 04:30 Lactic Acid 0.70 mmol/L (0.7-2.0) 10/31/21 15:45 Calcium 8.4 mg/dL (8.4-10.2) 11/20/21 07:42 Phosphorus 3.10 mg/dL (2.5-4.5) 11/19/21 14:38 Magnesium 1.60 mg/dL (1.7-2.3) L 11/19/21 14:38 Ferritin 208.4 ng/mL (10.0-200.0) H 10/30/21 Unknown Total Bilirubin < 0.20 mg/dL (0.1-1.2) 11/06/21 02:35 AST 21 units/L (5-40) 11/06/21 02:35 ALT 77 units/L (7-56) H 11/06/21 02:35 Alkaline Phosphatase 84 units/L (35-129) 11/06/21 02:35 Ammonia 31.0 umol/L (25-60) 10/29/21 15:10 Lactate Dehydrogenase 469 units/L (91-180) H 10/30/21 Unknown Troponin T 1.150 ng/mL (0.00-0.029) H* D 10/29/21 22:34 C-Reactive Protein 13.40 mg/dL (0.00-1.30) H 10/30/21 Unknown Total Protein 6.3 g/dL (6.3-8.2) 11/06/21 02:35 Albumin 3.0 g/dL (3.9-5) L 11/06/21 02:35 Albumin/Globulin Ratio 0.9 % 11/06/21 02:35 Triglycerides 68 mg/dL (2-149) 10/29/21 19:40 Cholesterol 98 mg/dL (50-199) 10/29/21 19:40 LDL Cholesterol Direct 43 mg/dL (50-130) L 10/29/21 19:40 HDL Cholesterol 50 mg/dL (40-59) 10/29/21 19:40 Cholesterol/HDL Ratio 1.96 % 10/29/21 19:40 Procalcitonin 61.95 ng/mL (<0.15) 10/30/21 Unknown TSH 3.080 mlU/mL (0.270-4.200) 10/29/21 15:10 Urine Color Yellow (Yellow) 11/13/21 08:30 Urine Turbidity Slightly-cloudy (Clear) 11/13/21 08:30 Urine pH 6.0 (5.0-7.0) 11/13/21 08:30 Ur Specific [place] 1.010 (1.003-1.030) 11/13/21 08:30 Urine Protein <15 mg/dl mg/dL (Negative) 11/13/21 08:30 Urine Glucose (UA) Neg mg/dL (Negative) 11/13/21 08:30 Urine Ketones Tr mg/dL (Negative) 11/13/21 08:30 Urine Blood Sm (Negative) 11/13/21 08:30 Urine Nitrite Neg (Negative) 11/13/21 08:30 Urine Bilirubin Neg (Negative) 11/13/21 08:30 Urine Urobilinogen < 2.0 mg/dL (<2.0) 11/13/21 08:30 Ur Leukocyte Esterase Neg (Negative) 11/13/21 08:30 Urine WBC (Auto) < 1.0 /HPF (0.0-6.0) 11/13/21 08:30 Urine RBC (Auto) < 1.0 /HPF (0.0-6.0) 11/13/21 08:30 U Epithel Cells (Auto) < 1.0 /HPF (0-13.0) 11/13/21 08:30 Urine Mucus Few /HPF 10/29/21 18:15 Urine Eosinophils None seen (None Seen) 11/04/21 Unknown Urine Creatinine 190.9 mg/dL (0.1-20.0) H 11/04/21 Unknown Protein/Creatinin Ratio 0.90 11/04/21 Unknown Urine Sodium 10 mmol/L 11/04/21 Unknown Urine Total Protein 172 mg/dL (5-11.8) H 11/04/21 Unknown Salicylates < 0.3 mg/dL (2.8-20.0) L 10/29/21 15:10 Urine Opiates Screen Negative 10/29/21 18:15 Urine Methadone Screen Negative 10/29/21 18:15 Acetaminophen 5.0 ug/mL (10.0-30.0) L 10/29/21 15:10 Ur Barbiturates Screen Negative 10/29/21 18:15 Ur Phencyclidine Scrn Negative 10/29/21 18:15 Ur Amphetamines Screen Negative 10/29/21 18:15 U Benzodiazepines Scrn Negative 10/29/21 18:15 Urine Cocaine Screen Negative 10/29/21 18:15 U Marijuana (THC) Screen Negative 10/29/21 18:15 Drugs of Abuse Note Disclamer 10/29/21 18:15 Plasma/Serum Alcohol < 0.01 % (0-0.07) 10/29/21 15:10 Coronavirus (PCR) Negative (Negative) 10/30/21 Unknown Blood Type O POSITIVE 11/12/21 04:15 Antibody Screen Negative 11/12/21 04:15 Crossmatch See Detail 11/12/21 04:15 Krishna/IV: Voiding Method External Female Catheter Active Medications - Current Medications Current Medications: Generic Name Dose Route Start Last Admin Trade Name Freq PRN Reason Stop Dose Admin Acetaminophen 650 mg 10/29/21 17:04 11/12/21 22:53 Acetaminophen 650 Mg Rect Supp OR 650 mg Q6H PRN Administration Pain MILD(1-3)/Fever >100.5/NIEVES Acetaminophen 650 mg 11/19/21 16:35 11/21/21 12:08 Acetaminophen 325 Mg Tab PO 650 mg Q6HR PRN Administration PAIN Alprazolam 0.25 mg 11/14/21 14:29 11/21/21 12:09 Alprazolam 0.25 Mg Tab PO 0.25 mg Q8H PRN Administration Anxiety Dextrose 0 ml 11/04/21 13:48 11/12/21 05:45 Dextrose 10% *Hypoglycemia IV 50 ml PRN PRN Administration Hypoglycemia Docusate Sodium 100 mg 11/18/21 15:00 11/21/21 10:48 Docusate Sodium 100 Mg Cap PO Not Given BID RAMON Famotidine 10 mg 11/06/21 10:00 11/21/21 10:46 Famotidine 10 Mg Tab PO 10 mg BID RAMON Administration Furosemide 20 mg 11/18/21 10:00 11/21/21 10:48 Furosemide 20 Mg/2 Ml Inj IV 20 mg BID RAMON Administration Hydralazine HCl 25 mg 11/20/21 14:00 11/21/21 14:28 Hydralazine 25 Mg Tab PO 25 mg Q8HR RAMON Administration Hydrophilic Ointment 1 applic 10/29/21 14:29 11/09/21 08:51 Lip Therapy Vaseline TP 1 applic Q2HR PRN Administration Dry Lips Insulin Human Lispro 0 unit 10/30/21 16:00 11/21/21 18:00 Insulin Lispro 100 Unit/Ml SUB-Q Not Given Q6HR [facility] Protocol Lactulose 20 gm 11/18/21 14:43 11/18/21 15:06 Lactulose 20 Gm/30 Ml Oral Liqd PO 20 gm Q6H PRN Administration Constipation Losartan Potassium 50 mg 11/20/21 11:00 11/21/21 10:46 Losartan 25 Mg Tab PO 50 mg BID RAMON Administration Metoprolol Tartrate 100 mg 11/16/21 22:00 11/21/21 10:47 Metoprolol Tartrate 100 Mg Tab PO 100 mg BID RAMON Administration Multi-Ingred Cream/Lotion/Oil/Oint 1 applic 10/29/21 14:29 11/06/21 09:25 Mineral Oil/Petrolatum, White Ophth Oint 3.5 Gm OU 1 applic Q4HR PRN Administration Dry Eye(s) Polyethylene Glycol 17 gm 11/20/21 12:47 11/20/21 13:07 Polyethylene Glycol 3350 17 Gm Powder PO 17 gm QDAY PRN Administration Constipation Senna/Docusate Sodium 1 tab 11/16/21 22:00 11/21/21 10:49 Sennosides/Docusate Sodium 8.6/50 Mg Tab PO Not Given BID RAMON Sodium Chloride 10 ml 10/29/21 22:00 11/21/21 10:51 Sodium Chloride 0.9% 10 Ml Flush Syringe IV 10 ml BID RAMON Administration Sodium Chloride 10 ml 10/29/21 17:04 Sodium Chloride 0.9% 10 Ml Flush Syringe IV PRN PRN LINE FLUSH Spironolactone 25 mg 11/10/21 10:00 11/21/21 10:47 Spironolactone 25 Mg Tab PO 25 mg QDAY RAMON Administration Nutrition/Malnutrition Assess - Dietary Evaluation Nutrition/Malnutrition Findings: Nutrition Notes Start: 10/30/21 09:50 Freq: Status: Active Protocol: Document 11/17/21 14:55 MEENU (Rec: 11/17/21 15:13 MEENU [id number]) Nutrition Notes Current Diagnosis Sepsis,Hypertension, Respiratory Failure Other Pertinent Diagnosis s/p Cardiac Arrest, DVT, Anemia, Pneumonia, Pneumothorax, P Edema, HFrEF.. . Current Diet Pureed Diet (since L 11/15). Height 5 ft 10 in Weight 112 kg Murphy Body Weight (kg) 68.18 BMI 35.4 Weight change and time frame No body weight change reported in 2 days. Weight Status Obese Subjective/Other Information RD consulr for routine F/U on Diet tolerance/advancement. Reports on Pt's PO intake show that pt has a preference for Dinner (100%), that Breakfast or Lunch (0-50%), according to ADL notes. Plans for discharge Pt on . Percent of energy/protein needs met: Prescribed Pureed Diet provides for energy/protein needs (1,804 Kcal/77 g) during LOS. #1 Nutrition Diagnosis Inadequate oral intake Comments: Reports on Pt's PO intake show that pt has a preference for Dinner (100%), that Breakfast or Lunch (0-50%), according to ADL notes. Diagnosis Progress(for reassessment Improved documentation) Is patient on ventilator? No Is Patient Ambulatory and/or Out of Bed No REE-([facility]-confined to bed) 7.388 Kcal/Kg value to use for calculation 15 Approximate Energy Requirements Using 1680 kcal/Kg Calculation Used for Recommendations Kcal/kg Additional Notes Protein: 0.8-1.2 g/Kg IBW; 70- 105 g/day. Fluids: 1 ml/Kcal, or as per MD. Nutrition Intervention Change Diet Order: Continue Pureed Diet. Goal #1 Maintain body weight within +/ -3% of admission body weight during LOS. Goal #2 Facilitate PO intake of meals with mechanical modification during LOS. Follow-Up By: 11/24/21 Additional Comments Continue monitoring food tolerance, %PO intake of meals , and BM.
[2021-11-22] MEDS: INSULIN LISPRO 100 UNIT/ML SUB-Q SCH ×4 (05:18→18:30)
[2021-11-22] MEDS: hydrALAZINE 25 MG TAB PO SCH ×3 (05:20→21:58)
[2021-11-22 06:14] LABS: Calcium 8.1 mg/dL (8.4-10.2)
[2021-11-22] MEDS: FAMOTIDINE 10 MG TAB PO SCH ×2 (09:39→21:56)
[2021-11-22] MEDS: LOSARTAN 25 MG TAB PO SCH ×2 (09:40→21:59)
[2021-11-22] MEDS: METOPROLOL TARTRATE 100 MG TAB PO SCH ×2 (09:40→21:58)
[2021-11-22] MEDS: FUROSEMIDE 20 MG/2 ML INJ IV SCH ×2 (09:40→21:57)
[2021-11-22] MEDS: SPIRONOLACTONE 25 MG TAB PO SCH (09:41)
[2021-11-22] MEDS: ACETAMINOPHEN 325 MG TAB PO PRN (09:50)
[2021-11-22] MEDS: SENNOSIDES/DOCUSATE SODIUM 8.6/50 MG TAB PO SCH ×2 (09:50→21:56)
[2021-11-22] MEDS: DOCUSATE SODIUM 100 MG CAP PO SCH ×2 (09:50→21:56)
--- NOTE | 2021-11-22 09:55 | Progress Note ---
Assessment and Plan Assessment and plan: 66 YO Female with Obesity was attending [facility] services when the patient collapsed and lost consciousness. Witnesses began CPR. EMS was notified and upon arrival the patient was found to be in distress without perfusing cardiac rhythm. Patient initiated on ACLS protocol and subsequently intubated in the field and transported to ED. The patient regained spontaneous circulation during transport. She was found to have acute hypoxemic respiratory failure, septic shock suspected secondary to aspiration pneumonia, metabolic acidosis, toxic metabolic encephalopathy, shock liver, and cardiac arrest with return of perfusing cardiac rhythm after initiation of ACLS protocol. Patient initiated on sepsis protocol as well as pneumonia protocol. Patient admitted to ICU. Patient improved, extubated on 11/11 and transferred to floor on 11/19. s/p cardiac arrest, collapse at [facility], HFrEF, shock/hypotension resolved Atrial fibrillation/atrial flutter -Cardiac arrest and collapse at [facility] with ROSC -Cardiology consulted, appreciate recommendations - S/p Cardizem gtt- d/c due to low EF; now on PO Amio -s/p vasopressor support with levophed -Echocardiogram shows left ventricular systolic function severely decreased, LVEF 25 to 30%, no pericardial effusion -proBNP 5622 -Continue Lasix 20 mg twice daily, BB, spironolactone, losartan -No significant volume overload clinically Acute hypoxic respiratory failure, right pneumothorax, Angioedema (resolved), pulmonary edema -[facility] consulted, appreciate recommendations -Intubated on 10/29 and extubated on 11/11 -Bipap q HS and prn, at high risk for KOLBY with morbid obesity -NC during day -s/p right chest tube for pneumothorax -s/p steroids for angioedema -On Lasix for pulmonary edema. transaminitis likely shocked liver - resolved Acute kidney injury likely secondary to vasomotor nephropathy, hypernatremia -Nephrology consulted, appreciate recommendations -Krishna replaced 11/05 urinary retention -FeNa 0.05 indicating pre-renal -SIERRA and hyponatremia resolved. Creatinine 1.0 on Lasix IV Shock cardiogenicsuspected sepsis -Fever was as high as 102 with a leukocytosis Blood, urine and sputum cultures negative -COVID-19 PCR negative -S/p empiric antibiotic therapy for possible pneumonia with Rocephin and azithromycin () -S/p Levophed gtt for hypotension -Fever and leukocytosis resolved -Monitor WBC and temperature curve Acute Metabolic encephalopathy, agitation/anxiety -Etiology likely from a cardiac arrest, shock and cerebral hypoperfusion CT head no acute focal parenchymal lesion in the brain -Neurology consulted, appreciate recommendations -EEG and MRI noted, Neuro recommend to cut down on sedation as possible Mental status significantly improved, currently fairly alert and oriented. Answers appropriately. Acute DVT in the left posterior tibial vein and bilateral peroneal veins, Anemia, retroperitoneal bleed -D-dimer greater than 10,000 -CTA chest with no evidence of PE -Bilateral lower extremity ultrasound positive for DVT -Heparin gtt on hold d/t anemia, received PRBC x4 -vasuclar surgery consulted, appreciate recommendations -recommended multiphasic CT angio of the abdomen and pelvis with and without contrast if H/H drops and did not recommend IVC filter at this time as the DVTs are infrapopliteal and recommends a follow-up DVT study weekly for 2 weeks. Repeat venous duplex ultrasound on 11/21 showed progression of left peroneal DVT extending into popliteal vein. Vascular surgery scheduled for IVC filter placement on 11/22. -Trend CBC -SCDs to BLE while in bed -Transfuse hemoglobin less than 7 -Monitor for signs of bleeding -Hemoglobin stable, 8.6 Hypertension, not able be controlled Increase losartan 200 mg daily and add hydralazine as needed. Hyperglycemia ,resolved) -Avoid hypoglycemia -Hbg A1C 6.7 -SSI and lantus q hs (titrate as needed) -Accu-Cheks q. 6 Morbid obesity High risk for KOLBY On nightly BiPAP Deconditioning PT/OT Discussed the patient and the nursing staff. Hospital Course to Date: 10/30: Intubated and sedated, on fentanyl gtt. Open eyes spontaneously but does not follow any commands. On vasopressors, titrate as tolerated for MAP above 65. Patient febrile overnight, continue empiric IV Abx, culture data and COVID PCR pending. Patient is also s/p CT placement due to spontaneous pneumothorax. 2D echo is pending and Cardiology is consulted. 10/31: Patient remains intubated and following commands. Levophed drip stopped and potassium repleted. Patient started on tube feeding. Remains in soft bilateral restraints. 11/01: RN noted ST changes on BSM and 12 lead EKG obtained which showed ST. Given Ativan 1mg for agitation as she is maxed on fentanyl drip and IV push fentanyl did not seem to help. Patient was started on CPAP this morning by RT but remained on fentanyl drip and was having periods of apnea. Plan was to retry CPAP again in the p.m. with sedation off. 11/02: Rate increased r/t hypercapnea on ABG, sedation reduced. Given kionex for hyperkalemia and was started on levophed overnight for hypotension. 11/03: Overnight patient had tachycardia and was given Cardizem and Lopressor. Lopressor was repeated in the a.m. due to tachycardia. Patient will be started on amiodarone with a bolus per cardiology. Patient started on normal saline per liter per [facility] and steroids for angioedema. Noted to have bright red blood when suctioned from oh ETT. Remains on heparin drip as H/H is stable for now. Will reevaluate. Fentanyl drip was restarted last night due to agitation. Dr. Flores updated family today 11/04: Patient was sedated on fentanyl however off sedation is able to follow commands, a.m. labs completed in the p.m. and show hyperkalemia with increased renal function studies. Nephrology, neurology consulted by [facility]. Given Kayexal ate, insulin and D50 for hyperkalemia. Patient remains on amiodarone. 11/05: Patient needed to be sedated on fentanyl again to today. overnight krishna was replaced. Hyperkalemia->given kionex 60 for 5.6. Repeat K 6-> Dr. Grant informed and requested bumex, kionex, insulin, d50, calcium gluconate and sodium bicarb with repeat BMP in 2 hours which were placed. HR remains elevated. 11/06: Patient remained in atrial fibrillation/atrial flutter with heart rate in the 150s despite being on amnio drip and was given amnio bolus, Cardizem bolus and started on Cardizem drip by cardiology. Patient is on beta-blockers p.o. scheduled and to feedings changed to Nepro. Kayexalate was given in the morning by nephrology due to hyperkalemia. 11/07: Patient is only responsive to mild stimuli, precedex added in an attempt to wean off fentanyl gtt to better assess her mental status. Neurology also on consult, pending MRI and EEG. Patient remains in Aflutter this am, HR in the 80 to 90s, still on amiodarone and heparin gtt. 11/08: Fentanyl gtt is off, only on precedex gtt. Patient is still not following any commands. MRI brain and EEG completed. Neuro recommendations noted, sedatives agents decreased. FWF added for hypernatremia and low K repleted, repeat labs ordered. Placed a call and spoke with patient's daughter, Eva Brown . She was updated on patient's conditions and status. All questions and concerns were voiced at this time. 11/09: Patient is awake and alert this am, following commands and appropriate. Remains on precedex gtt, plan for possible PST today. Hypertensive overnight, meds adjusted by Cardio and PRN Hydralazine added for SBP greater than 160. CT dislodged overnight, CXR is stable with no significant change. F/U CXR in the am. Patient's daughter, Eva Brown, visited with patient. She was updated on patient's status and goal of care for today. All questions and concerns were voiced at this time. 11/10: Mentation remains intact, still on precedex gtt. This am CXR noted still with fluid overload s/p X1 dose of IV lasix, good response from IV lasix ov ernight. Hypernatremia improved, D5W d/dayday. Still with persistent hypokalemia, continue electrolytes replacement and frequent lab check. Daily IV lasix and aldactone added by Cardio. Patient is also with persistent low grade fevers overnight, leukocytosis with mild improvement this am. Will get a repeat sputum culture, hold off on IV abx for now. Consider ID consult if fevers and leukocytosis persist. Patient tolerated PST X4hrs yesterday. PST again today, plan to wean to extubate if tolerated. 11/11: IAM overnight. Off precedex gtt and tolerated PST this am. Plan to wean to extubate today. Additional IV lasix given, plan to keep patient at a net negative balance for better lung compliance. F/U CXR in the am. K improved this am, repeat BMP this afternoon since diuresing. Remains with low grade fevers, leukocytosis downtrending, will continue to monitor. Speech/PT/OT ordered 11/12: S/p extubation, now stable on 3L NC. This am CXR noted with no significant changes, lasix changed to IV X4days BID. Drop in H&H this am, and Lt. flank ecchymosis noted. Heparin gtt on hold for now and orders placed for 1 unit of PRBCs and Ct Abd/Pelvis w/o con to r/o retroperitoneal bleed. Pending speech swallow eval, keep patient NPO for now. Patient is stable for IMCU status 11/13: Patient with increased WOB and tachycardia this am, patient was placed on Bipap and precedex gtt was resumed. CXR with mild improvement. CT Abd/Pelvis also reviewed large hematomas noted at the Lt. retroperitoneum and left posterior lateral abdominal wall. Heparin gtt is already on hold, patient is hemodynamically stable. Vascular Surgery consulted for possible IVC filter eval. Patient s/p 2units of PRBCs, will continue to trend H&H and transfuse if hbg is less than 7. Worsening renal function this am, IF diuretic on hold for now. Patient is also febrile with spike in wbcs most likely reactive to bleed, will p anculture and hold off on IV Abx for now. Patient also failed speech bedside swallow eval yesterday, NGT in placed plan to resume enteral nutrition 11/14: Patient had bilateral lower extremity Doppler ultrasound and vascular surgery has recommended multiphasic CT angio of the abdomen and pelvis with and without contrast if H/H drops and does not recommend IVC filter at this time as the DVTs are infrapopliteal and recommends a DVT study weekly for 2 weeks. FWF 250 q4 ml per nephro. Started on as needed Xanax and p.o. amiodarone. She did not pass her ST evaluation today. Will be transferred to [facility]. 11/15: Resting comfortably on encounter. Speech cleared for pureed diet. Remains on 3l satting 98 % on bedside encounter. Does not appear to be in respiratory distress. Will continue to hold AC, No ivc filter planned at this time. qweekly doppler to monitor for migration of DVT per vascular. If demonstrated, will consider IVC filter. CBC ordered for tomorrow, will continue monitoring in light of retroperitoneal hematoma. FWF increased by nephrology to 350cc q4hr d/t hypernatremia. UOP/renal function both improved. D/w cardiology, will continue amiodorone an additional 24hrs. Plan to change dosing of metoprolol. Continue to wean off of precedex. Continue xanax scheduled for anxiety. physical therapy recs noted, fernanda / ltac will discuss with CM. Continue IMCU monitoring. 11/16: Pulmonary congestion this AM. CXR ordered. Lasix 40 mg IV x 1 order this AM. Will monitor for 24 hrs. potential downgrade to medical floor tomorrow. 11/17: Persisting pulmonary congestion, was on bipap overnight into this AM. Will order additional lasix 40 mg IV x 2. CXR ordered for AM. Possible downgrade to floor tomorrow. Anticipate d/c sunday. 11/18: Patient seen and examined, continue weaning, will continue diuresis BID, discussed with daughter. 11/19: Patient seen and examined this morning doing well no acute distress noted. Lasix was increased to twice daily to 20 mg IV. Clinically improving. Patient will be transferred to telemetry today can be switched to Lasix p.o. twice daily in a.m. She has her weekly Doppler of lower extremity tomorrow vascular is following for this. She was taken off anticoagulation secondary to retroperito dulce bleed., The anticoagulation was started initially for atrial fibrillation and an infrapopliteal DVT. During her hospital stay she had a prolonged ventilator management and was successfully weaned off. She also received a total of 4 units of packed red blood cell. Hemoglobin has remained stable. Anticipate discharge in next 48 hours if continues to clinically stay stable. : Transferred from ICU on 11/19. Progressive improving. Currently awake and oriented. O2 weaned to 4 L. Hemodynamically stable. BP control being optimized. MiraLAX for constipation. Hemoglobin stable on the heparin infusion, being monitored closely with history of retroperitoneal bleed. 11/21: Patient remains mostly bedridden. She is awake and oriented on 2 L of O2. Repeat ultrasound showed extension of left peroneal DVT into popliteal vein. Heparin was discontinued for significant retroperitoneal bleed and off anticoagulation since. Vascular surgery plan for placement of IVC filter tomorrow. Patient is chest pains, palpitations, hemoptysis. She has some cough. Left lower extremity pain likely from DVT better today. Discussed with the patient, nursing staff and vascular surgery. 11/22: The infrapopliteal vein thrombosis has propagated to the left popliteal vein. Vascular surgery to perform IVC filter placement today. History Interval history: No new issues overnight. Hospitalist Physical - Constitutional Vitals: Temp Pulse Resp BP Pulse Ox 99.2 F 71 16 177/87 97 11/22/21 07:21 11/22/21 07:21 11/22/21 07:21 11/22/21 07:21 11/22/21 09:05 General appearance: Present: no acute distress, obese (Morbidly obese) - EENT Eyes: Present: PERRL, EOM intact ENT: hearing intact, clear oral mucosa, dentition normal - Neck Neck: Present: supple, normal ROM - Respiratory Respiratory effort: normal Respiratory: bilateral: CTA - Cardiovascular Rhythm: regular Heart Sounds: Present: S1 & S2. Absent: gallop, rub - Extremities Extremities: no ischemia, No edema, Full ROM - Abdominal General gastrointestinal: soft, non-tender, non-distended, normal bowel sounds - Integumentary Integumentary: Present: clear, warm, dry - Neurologic Neurologic: CNII-XII intact, moves all extremities HEART Score - HEART Score Troponin: Troponin T 1.150 ng/mL (0.00-0.029) H* D 10/29/21 22:34 Results - Labs CBC & Chem 7: 11/20/21 07:42 11/22/21 05:10 Labs: Laboratory Last Values WBC 10.3 K/mm3 (4.5-11.0) 11/20/21 07:42 RBC 3.01 M/mm3 (3.65-5.03) L 11/20/21 07:42 Hgb 8.6 gm/dl (10.1-14.3) L 11/20/21 07:42 Hct 26.7 % (30.3-42.9) L 11/20/21 07:42 MCV 89 fl (79-97) 11/20/21 07:42 MCH 28 pg (28-32) 11/20/21 07:42 MCHC 32 % (30-34) 11/20/21 07:42 RDW 15.4 % (13.2-15.2) H 11/20/21 07:42 Plt Count 331 K/mm3 (140-440) 11/20/21 07:42 Lymph % (Auto) 9.5 % (13.4-35.0) L 11/18/21 04:53 [place] % (Auto) 9.8 % (0.0-7.3) H 11/18/21 04:53 Eos % (Auto) 1.8 % (0.0-4.3) 11/18/21 04:53 Baso % (Auto) 0.6 % (0.0-1.8) 11/18/21 04:53 Lymph # (Auto) 1.2 K/mm3 (1.2-5.4) 11/18/21 04:53 [place] # (Auto) 1.3 K/mm3 (0.0-0.8) H 11/18/21 04:53 Eos # (Auto) 0.2 K/mm3 (0.0-0.4) 11/18/21 04:53 Baso # (Auto) 0.1 K/mm3 (0.0-0.1) 11/18/21 04:53 Add Manual Diff Complete 11/07/21 06:30 Total Counted 100 11/07/21 06:30 Seg Neutrophils % 78.3 % (40.0-70.0) H 11/18/21 04:53 Seg Neuts % (Manual) 77.0 % (40.0-70.0) H 11/07/21 06:30 Band Neutrophils % 1.0 % 11/07/21 06:30 Lymphocytes % (Manual) 11.0 % (13.4-35.0) L 11/07/21 06:30 Reactive Lymphs % (Man) 3.0 % 11/07/21 06:30 Monocytes % (Manual) 2.0 % (0.0-7.3) 11/07/21 06:30 Eosinophils % (Manual) 0 % (0.0-4.3) 11/07/21 06:30 Basophils % (Manual) 0 % (0.0-1.8) 11/07/21 06:30 Metamyelocytes % 1.0 % 11/07/21 06:30 Myelocytes % 5.0 % 11/07/21 06:30 Promyelocytes % 0 % 11/07/21 06:30 Blast Cells % 0 % 11/07/21 06:30 Nucleated RBC % 2.0 % (0.0-0.9) H 11/07/21 06:30 Seg Neutrophils # 10.2 K/mm3 (1.8-7.7) H 11/18/21 04:53 Seg Neutrophils # Man 12.3 K/mm3 (1.8-7.7) H 11/07/21 06:30 Band Neutrophils # 0.2 K/mm3 11/07/21 06:30 Lymphocytes # (Manual) 1.8 K/mm3 (1.2-5.4) 11/07/21 06:30 Abs React Lymphs (Man) 0.5 K/mm3 11/07/21 06:30 Monocytes # (Manual) 0.3 K/mm3 (0.0-0.8) 11/07/21 06:30 Eosinophils # (Manual) 0.0 K/mm3 (0.0-0.4) 11/07/21 06:30 Basophils # (Manual) 0.0 K/mm3 (0.0-0.1) 11/07/21 06:30 Metamyelocytes # 0.2 K/mm3 11/07/21 06:30 Myelocytes # 0.8 K/mm3 11/07/21 06:30 Promyelocytes # 0.0 K/mm3 11/07/21 06:30 Blast Cells # 0.0 K/mm3 11/07/21 06:30 WBC Morphology Not Reportable 11/07/21 06:30 Hypersegmented Neuts Not Reportable 11/07/21 06:30 Hyposegmented Neuts Not Reportable 11/07/21 06:30 Hypogranular Neuts Not Reportable 11/07/21 06:30 Smudge Cells Not Reportable 11/07/21 06:30 Toxic Granulation Not Reportable 11/07/21 06:30 Toxic Vacuolation Not Reportable 11/07/21 06:30 Dohle Bodies Not Reportable 11/07/21 06:30 Pelger-Huet Anomaly Not Reportable 11/07/21 06:30 Manny Rods Not Reportable 11/07/21 06:30 Platelet Estimate Consistent w auto 11/07/21 06:30 Clumped Platelets Not Reportable 11/07/21 06:30 Plt Clumps, EDTA Not Reportable 11/07/21 06:30 Large Platelets 1+ 11/07/21 06:30 Giant Platelets Not Reportable 11/07/21 06:30 Platelet Satelliting Not Reportable 11/07/21 06:30 Plt Morphology Comment Not Reportable 11/07/21 06:30 RBC Morphology Not Reportable 11/07/21 06:30 Dimorphic RBCs Not Reportable 11/07/21 06:30 Polychromasia Not Reportable 11/07/21 06:30 Hypochromasia 1+ 11/07/21 06:30 Poikilocytosis Not Reportable 11/07/21 06:30 Anisocytosis Not Reportable 11/07/21 06:30 Microcytosis Not Reportable 11/07/21 06:30 Macrocytosis Not Reportable 11/07/21 06:30 Spherocytes 1+ 11/07/21 06:30 Pappenheimer Bodies Not Reportable 11/07/21 06:30 Sickle Cells Not Reportable 11/07/21 06:30 Target Cells 1+ 11/07/21 06:30 Tear Drop Cells Not Reportable 11/07/21 06:30 Ovalocytes Not Reportable 11/07/21 06:30 Helmet Cells Not Reportable 11/07/21 06:30 [place] Bodies Not Reportable 11/07/21 06:30 Minerva Rings Not Reportable 11/07/21 06:30 [place] Cells Not Reportable 11/07/21 06:30 Bite Cells Not Reportable 11/07/21 06:30 Crenated Cell Not Reportable 11/07/21 06:30 Elliptocytes Not Reportable 11/07/21 06:30 Acanthocytes (Spur) Not Reportable 11/07/21 06:30 Rouleaux Not Reportable 11/07/21 06:30 Hemoglobin C Crystals Not Reportable 11/07/21 06:30 Schistocytes Not Reportable 11/07/21 06:30 Malaria parasites Not Reportable 11/07/21 06:30 Magdy Bodies Not Reportable 11/07/21 06:30 Hem Pathologist Commnt No 11/07/21 06:30 PT 17.2 Sec. (12.2-14.9) H 10/30/21 16:30 INR 1.27 (0.87-1.13) H 10/30/21 16:30 APTT 44.4 Sec. (24.2-36.6) H 10/30/21 16:30 D-Dimer > 74799 ng/mlDDU (0-234) H 10/30/21 Unknown Heparin Anti-Xa Level 0.62 U.I./ml (0.3-0.7) 11/12/21 03:30 ABG pH 7.475 pH Units (7.350-7.450) H 11/11/21 13:53 ABG pCO2 45.0 mm Hg 11/11/21 13:53 ABG pO2 64.1 mm Hg (80.0-90.0) L 11/11/21 13:53 ABG HCO3 32.4 mmol/L (20.0-26.0) H 11/11/21 13:53 ABG O2 Saturation 96.3 % (95.0-99.0) 11/11/21 13:53 ABG O2 Content 10.1 (0.0-44) 11/11/21 13:53 ABG Base Excess 8.0 mmol/L (-2.0-3.0) H 11/11/21 13:53 ABG Hemoglobin 7.6 gm/dl (12.0-16.0) L 11/11/21 13:53 ABG Carboxyhemoglobin 1.8 % (0.0-5.0) 11/11/21 13:53 ABG Methemoglobin 0.5 % (0.0-1.5) 11/11/21 13:53 Oxyhemoglobin 94.0 % (95.0-99.0) L 11/11/21 13:53 FiO2 32 % 11/11/21 13:53 Sodium 141 mmol/L (137-145) 11/22/21 05:10 Potassium 3.6 mmol/L (3.6-5.0) 11/22/21 05:10 Chloride 99.5 mmol/L (98-107) 11/22/21 05:10 Carbon Dioxide 32 mmol/L (22-30) H 11/22/21 05:10 Anion Gap 13 mmol/L 11/22/21 05:10 BUN 12 mg/dL (7-17) 11/22/21 05:10 Creatinine 1.1 mg/dL (0.6-1.2) 11/22/21 05:10 Estimated GFR 60 ml/min 11/22/21 05:10 BUN/Creatinine Ratio 11 % 11/22/21 05:10 Glucose 97 mg/dL (65-100) 11/22/21 05:10 POC Glucose 97 mg/dL (70-105) 11/22/21 05:07 Hemoglobin A1c 6.7 % (4-6) H 10/31/21 04:30 Lactic Acid 0.70 mmol/L (0.7-2.0) 10/31/21 15:45 Calcium 8.1 mg/dL (8.4-10.2) L 11/22/21 05:10 Phosphorus 3.10 mg/dL (2.5-4.5) 11/19/21 14:38 Magnesium 1.60 mg/dL (1.7-2.3) L 11/19/21 14:38 Ferritin 208.4 ng/mL (10.0-200.0) H 10/30/21 Unknown Total Bilirubin < 0.20 mg/dL (0.1-1.2) 11/06/21 02:35 AST 21 units/L (5-40) 11/06/21 02:35 ALT 77 units/L (7-56) H 11/06/21 02:35 Alkaline Phosphatase 84 units/L (35-129) 11/06/21 02:35 Ammonia 31.0 umol/L (25-60) 10/29/21 15:10 Lactate Dehydrogenase 469 units/L (91-180) H 10/30/21 Unknown Troponin T 1.150 ng/mL (0.00-0.029) H* D 10/29/21 22:34 C-Reactive Protein 13.40 mg/dL (0.00-1.30) H 10/30/21 Unknown Total Protein 6.3 g/dL (6.3-8.2) 11/06/21 02:35 Albumin 3.0 g/dL (3.9-5) L 11/06/21 02:35 Albumin/Globulin Ratio 0.9 % 11/06/21 02:35 Triglycerides 68 mg/dL (2-149) 10/29/21 19:40 Cholesterol 98 mg/dL (50-199) 10/29/21 19:40 LDL Cholesterol Direct 43 mg/dL (50-130) L 10/29/21 19:40 HDL Cholesterol 50 mg/dL (40-59) 10/29/21 19:40 Cholesterol/HDL Ratio 1.96 % 10/29/21 19:40 Procalcitonin 61.95 ng/mL (<0.15) 10/30/21 Unknown TSH 3.080 mlU/mL (0.270-4.200) 10/29/21 15:10 Urine Color Yellow (Yellow) 11/13/21 08:30 Urine Turbidity Slightly-cloudy (Clear) 11/13/21 08:30 Urine pH 6.0 (5.0-7.0) 11/13/21 08:30 Ur Specific [place] 1.010 (1.003-1.030) 11/13/21 08:30 Urine Protein <15 mg/dl mg/dL (Negative) 11/13/21 08:30 Urine Glucose (UA) Neg mg/dL (Negative) 11/13/21 08:30 Urine Ketones Tr mg/dL (Negative) 11/13/21 08:30 Urine Blood Sm (Negative) 11/13/21 08:30 Urine Nitrite Neg (Negative) 11/13/21 08:30 Urine Bilirubin Neg (Negative) 11/13/21 08:30 Urine Urobilinogen < 2.0 mg/dL (<2.0) 11/13/21 08:30 Ur Leukocyte Esterase Neg (Negative) 11/13/21 08:30 Urine WBC (Auto) < 1.0 /HPF (0.0-6.0) 11/13/21 08:30 Urine RBC (Auto) < 1.0 /HPF (0.0-6.0) 11/13/21 08:30 U Epithel Cells (Auto) < 1.0 /HPF (0-13.0) 11/13/21 08:30 Urine Mucus Few /HPF 10/29/21 18:15 Urine Eosinophils None seen (None Seen) 11/04/21 Unknown Urine Creatinine 190.9 mg/dL (0.1-20.0) H 11/04/21 Unknown Protein/Creatinin Ratio 0.90 11/04/21 Unknown Urine Sodium 10 mmol/L 11/04/21 Unknown Urine Total Protein 172 mg/dL (5-11.8) H 11/04/21 Unknown Salicylates < 0.3 mg/dL (2.8-20.0) L 10/29/21 15:10 Urine Opiates Screen Negative 10/29/21 18:15 Urine Methadone Screen Negative 10/29/21 18:15 Acetaminophen 5.0 ug/mL (10.0-30.0) L 10/29/21 15:10 Ur Barbiturates Screen Negative 10/29/21 18:15 Ur Phencyclidine Scrn Negative 10/29/21 18:15 Ur Amphetamines Screen Negative 10/29/21 18:15 U Benzodiazepines Scrn Negative 10/29/21 18:15 Urine Cocaine Screen Negative 10/29/21 18:15 U Marijuana (THC) Screen Negative 10/29/21 18:15 Drugs of Abuse Note Disclamer 10/29/21 18:15 Plasma/Serum Alcohol < 0.01 % (0-0.07) 10/29/21 15:10 Coronavirus (PCR) Negative (Negative) 10/30/21 Unknown Blood Type O POSITIVE 11/12/21 04:15 Antibody Screen Negative 11/12/21 04:15 Crossmatch See Detail 11/12/21 04:15 Krishna/IV: Voiding Method External Female Catheter Active Medications - Current Medications Current Medications: Generic Name Dose Route Start Last Admin Trade Name Freq PRN Reason Stop Dose Admin Acetaminophen 650 mg 10/29/21 17:04 11/12/21 22:53 Acetaminophen 650 Mg Rect Supp GA 650 mg Q6H PRN Administration Pain MILD(1-3)/Fever >100.5/NIEVES Acetaminophen 650 mg 11/19/21 16:35 11/21/21 12:08 Acetaminophen 325 Mg Tab PO 650 mg Q6HR PRN Administration PAIN Alprazolam 0.25 mg 11/14/21 14:29 11/21/21 12:09 Alprazolam 0.25 Mg Tab PO 0.25 mg Q8H PRN Administration Anxiety Dextrose 0 ml 11/04/21 13:48 11/12/21 05:45 Dextrose 10% *Hypoglycemia IV 50 ml PRN PRN Administration Hypoglycemia Docusate Sodium 100 mg 11/18/21 15:00 11/21/21 21:45 Docusate Sodium 100 Mg Cap PO 100 mg BID RAMON Administration Famotidine 10 mg 11/06/21 10:00 11/21/21 21:43 Famotidine 10 Mg Tab PO 10 mg BID RAMON Administration Furosemide 20 mg 11/18/21 10:00 11/21/21 21:43 Furosemide 20 Mg/2 Ml Inj IV 20 mg BID RAMON Administration Hydralazine HCl 25 mg 11/20/21 14:00 11/22/21 05:20 Hydralazine 25 Mg Tab PO 25 mg Q8HR RAOMN Administration Hydrophilic Ointment 1 applic 10/29/21 14:29 11/09/21 08:51 Lip Therapy Vaseline TP 1 applic Q2HR PRN Administration Dry Lips Insulin Human Lispro 0 unit 10/30/21 16:00 11/22/21 05:20 Insulin Lispro 100 Unit/Ml SUB-Q Not Given Q6HR RAMON Protocol Lactulose 20 gm 11/18/21 14:43 11/18/21 15:06 Lactulose 20 Gm/30 Ml Oral Liqd PO 20 gm Q6H PRN Administration Constipation Losartan Potassium 50 mg 11/20/21 11:00 11/21/21 21:44 Losartan 25 Mg Tab PO 50 mg BID RAMON Administration Metoprolol Tartrate 100 mg 11/16/21 22:00 11/21/21 21:44 Metoprolol Tartrate 100 Mg Tab PO 100 mg BID RAMON Administration Multi-Ingred Cream/Lotion/Oil/Oint 1 applic 10/29/21 14:29 11/06/21 09:25 Mineral Oil/Petrolatum, White Ophth Oint 3.5 Gm OU 1 applic Q4HR PRN Administration Dry Eye(s) Polyethylene Glycol 17 gm 11/20/21 12:47 11/20/21 13:07 Polyethylene Glycol 3350 17 Gm Powder PO 17 gm QDAY PRN Administration Constipation Senna/Docusate Sodium 1 tab 11/16/21 22:00 11/21/21 21:43 Sennosides/Docusate Sodium 8.6/50 Mg Tab PO 1 tab BID RAMON Administration Sodium Chloride 10 ml 10/29/21 22:00 11/21/21 21:45 Sodium Chloride 0.9% 10 Ml Flush Syringe IV 10 ml BID RAMON Administration Sodium Chloride 10 ml 10/29/21 17:04 Sodium Chloride 0.9% 10 Ml Flush Syringe IV PRN PRN LINE FLUSH Spironolactone 25 mg 11/10/21 10:00 11/21/21 10:47 Spironolactone 25 Mg Tab PO 25 mg QDAY RAMON Administration Nutrition/Malnutrition Assess - Dietary Evaluation Nutrition/Malnutrition Findings: Nutrition Notes Start: 10/30/21 09:50 Freq: Status: Active Protocol: Document 11/17/21 14:55 MEENU (Rec: 11/17/21 15:13 MEENU [id number]) Nutrition Notes Current Diagnosis Sepsis,Hypertension, Respiratory Failure Other Pertinent Diagnosis s/p Cardiac Arrest, DVT, Anemia, Pneumonia, Pneumothorax, P Edema, HFrEF.. . Current Diet Pureed Diet (since L 11/15). Height 5 ft 10 in Weight 112 kg [place] Body Weight (kg) 68.18 BMI 35.4 Weight change and time frame No body weight change reported in 2 days. Weight Status Obese Subjective/Other Information RD consulr for routine F/U on Diet tolerance/advancement. Reports on Pt's PO intake show that pt has a preference for Dinner (100%), that Breakfast or Lunch (0-50%), according to ADL notes. Plans for discharge Pt on . Percent of energy/protein needs met: Prescribed Pureed Diet provides for energy/protein needs (1,804 Kcal/77 g) during LOS. #1 Nutrition Diagnosis Inadequate oral intake Comments: Reports on Pt's PO intake show that pt has a preference for Dinner (100%), that Breakfast or Lunch (0-50%), according to ADL notes. Diagnosis Progress(for reassessment Improved documentation) Is patient on ventilator? No Is Patient Ambulatory and/or Out of Bed No REE-([facility]-confined to bed) 2087.388 Kcal/Kg value to use for calculation 15 Approximate Energy Requirements Using 1680 kcal/Kg Calculation Used for Recommendations Kcal/kg Additional Notes Protein: 0.8-1.2 g/Kg IBW; 70- 105 g/day. Fluids: 1 ml/Kcal, or as per MD. Nutrition Intervention Change Diet Order: Continue Pureed Diet. Goal #1 Maintain body weight within +/ -3% of admission body weight during LOS. Goal #2 Facilitate PO intake of meals with mechanical modification during LOS. Follow-Up By: 11/24/21 Additional Comments Continue monitoring food tolerance, %PO intake of meals , and BM.
[2021-11-22] MEDS ORDERED: fentaNYL 100 MCG/2 ML INJ ONE (11:57)
[2021-11-22] MEDS ORDERED: LIDOCAINE (2%) 20 MG/1 ML VIAL 20 ML MDV INFILTRATI ONE (11:57)
[2021-11-22] MEDS ORDERED: MIDAZOLAM 2 MG/2 ML INJ ONE (11:57)
[2021-11-22] MEDS ORDERED: HEPARIN/NS 5000 UNIT/500ML 500 ML IR ONE (11:57)
[2021-11-22] MEDS ORDERED: SODIUM CHLORIDE 0.9% 250ML 250 ML ONE (12:16)
--- NOTE | 2021-11-22 12:51 | Operative Report ---
Operative Report Operative Report: EXAM: Ultrasound guided access of the right internal jugular IVC filter placement and inferior venacava venography DATE: 11/22/2021 INDICATION: DVT of the bilateral lower extremities with propagation of DVT since 1 week ago with inability to anticoagulate due to spontaneous severe retroperitoneal hemorrhage require 4 unit red blood cell transfusion. MEDICATIONS: Continuous cardiopulmonary monitoring was performed during this procedure. Please review the nursing record for a list of all medications. DEVICES: Retrievable Bard Bastrop IVC filter. CUT OFF SAW OPERATOR METAL: NAHEED WHYTE MD CONTRAST: 50 mLs of nonionic contrast PROCEDURE: The risks, benefits, and alternatives were discussed; written informed consent was obtained. The patient was transported to the angiography suite in stable condition. The patient was transported on the table and the right internal jugular was assessed with ultrasound to ensure patency. The patient was prepped and draped in a sterile fashion. The right internal jugular vein was accessed with an 21-gauge needle under direct ultrasound guidance. 0.018 inch wire was advanced through the needle and the needle was exchanged for a transitional dilation. Inner dilator and wire was removed. 0.035 inch wire was passed into the inferior vena cava. The transitional dilator was exchanged for a 5 Vietnamese sheath and a 5 Vietnamese pigtail catheter was advanced over the wire and passed into the inferior vena cava. The table was locked. Digital subtraction venography was performed. The pigtail was removed over a 0.035 inch wire and the sheath was removed over the wire. The IVC filter sheath and introducer were advanced over the wire under direct fluoroscopic guidance. The wire and introducer were removed. The IVC filter deployment system was advanced through the sheath and properly positioned under fluoroscopic guidance. The IVC filter was deployed under direct fluoroscopic guidance. Venography was performed through the sheath to confirm position. The deployment system, and sheath were removed. Pressure was held until hemostasis was achieved. The patient was transferred from the angiography suite in stable condition. FINDINGS: 1. Under direct ultrasound guidance, the right internal jugular vein was accessed with a 21-gauge needle. 2. Digital subtraction venography of the inferior vena cava demonstrates no evidence of inferior vena cava thrombus. The inferior vena cava is normal in size. Renal vein inflow is visualized. The inferior vena cava is adequate to accommodate an IVC filter. 3. Bard Bastrop IVC filter is properly positioned, below the renal veins and above the iliocaval confluence. IMPRESSION: Successful placement of a retrievable Bard Bastrop IVC filter. No evidence of caval thrombus. PLAN: Patient was provided cards and instructed to follow-up with [facility] [place] in 8 to 10 weeks for evaluation for removal.
--- NOTE | 2021-11-22 13:19 | Progress Note ---
Assessment and Plan Patient is a 66-year-old female with unknown past medical history brought into the ED following outside of hospital cardiac arrest thought to be PEA with thought to have downtime of 7 to 9 minutes however details are unclear S/P PEA cardiopulmonary arrest-No longer on pressors Acute hypoxic respiratory failure-pulm following Septic shock Aspiration pneumonia Atrial flutter w/ RVR- currently sinus rhythm Pneumothorax- s/p CT Acute DVT-on Heparin gtt Hypokalemia Transaminitis Retroperitoneal Hematoma Echo 10/30/2021-technically difficult study due to body habitus. EF 25 to 30%. Right ventricular systolic function is normal. No pericardial effusion Plan: Continue metoprolol 100 mg p.o. twice daily, aldactone 25mg PO QD, and losartan 25 mg p.o. daily Patient for IVC filter today Continue present management Patient seen in conjunction with Dr. Cueto who agrees with this plan of care - Patient Problems (1) Cardiopulmonary arrest Current Visit: Yes Status: Acute (2) Hypokalemia Current Visit: Yes Status: Acute (3) Transaminitis Current Visit: Yes Status: Acute (4) Aspiration pneumonia Current Visit: Yes Status: Acute (5) Acute hypoxemic respiratory failure Current Visit: Yes Status: Acute (6) Septic shock Current Visit: Yes Status: Acute (7) Toxic metabolic encephalopathy Current Visit: Yes Status: Acute (8) Shock liver Current Visit: Yes Status: Acute Subjective Date of service: 11/22/21 Principal diagnosis: AHRF; Cardiac arrest; R. pneumothorax; pneumonia; AMS; DVT's; SIERRA; Obesity Interval history: Patient resting in bed in no acute distress. Patient currently on nasal cannula Patient sinus rate trending 80s Objective Vital Signs Temp Pulse Pulse Resp BP Pulse Ox 11/22/21 11:03 99.0 F 67 16 162/91 98 11/22/21 09:05 97 11/22/21 07:21 99.2 F 71 16 177/87 100 11/22/21 05:20 90 171/93 11/22/21 05:10 90 24 98 11/22/21 05:00 68 11/22/21 03:33 99.1 F 99 H 20 171/93 99 11/22/21 00:00 75 17 97 11/21/21 23:32 99.5 F 96 H 20 154/94 98 11/21/21 23:07 98 H 27 H 100 11/21/21 22:00 96 11/21/21 21:44 102 H 159/90 11/21/21 19:35 98.8 F 102 H 18 159/90 96 11/21/21 17:00 75 11/21/21 15:12 98.6 F 18 186/91 11/21/21 14:28 70 153/62 - Physical Examination General: No Apparent Distress HEENT: Positive: EOMI, Normocephaly Neck: Positive: trachea midline. Negative: JVD/HJR Cardiac: Positive: Reg Rate and Rhythm Lungs: Positive: Decreased Breath Sounds Neuro: Positive: Grossly Intact Abdomen: Positive: Soft Skin: Negative: Rash Musculoskeletal: No Pain Extremities: Present: upper extr. pulses, edema, warm - Labs and Meds Comprehensive Metabolic Panel 11/22/21 Range/Units 05:10 Sodium 141 (137-145) mmol/L Potassium 3.6 (3.6-5.0) mmol/L Chloride 99.5 (98-107) mmol/L Carbon Dioxide 32 H (22-30) mmol/L BUN 12 (7-17) mg/dL Creatinine 1.1 (0.6-1.2) mg/dL Glucose 97 (65-100) mg/dL Calcium 8.1 L (8.4-10.2) mg/dL - Imaging and Cardiology EKG: report reviewed, image reviewed Echo: report reviewed - Telemetry EKG Rhythm: Sinus Rhythm - EKG Sinus rhythms and dysrhythmias: sinus rhythm Ventricular dysrhythmias: ventricular premature com Repolarization changes or abnormalities: nonspecific abnormality, ST segment, and/or T wave Myocardial infarction: septal [place] (old age or ind - Allied health notes Allied health notes reviewed: nursing
[2021-11-22] MEDS ORDERED: hydrALAZINE 25 MG TAB PO SCH (19:00)
[2021-11-22] MEDS: MELATONIN 5 MG TAB PO PRN (21:56)
[2021-11-22] MEDS: ALPRAZolam 0.25 MG TAB PO PRN (21:57)
[2021-11-23] MEDS: INSULIN LISPRO 100 UNIT/ML SUB-Q SCH ×4 (00:50→19:43)
[2021-11-23] MEDS: hydrALAZINE 25 MG TAB PO SCH ×3 (06:21→22:26)
[2021-11-23 08:29] LABS: Hematocrit 28.5 % (30.3-42.9); Hemoglobin 9.1 gm/dl (10.1-14.3); Mean Corpuscular HGB Conc 32 % (30-34); Mean Corpuscular Volume 88 fl (79-97); Platelet Count 297 K/mm3 (140-440); Red Blood Count 3.23 M/mm3 (3.65-5.03); Red Cell Distribution Width 15.6 % (13.2-15.2)
[2021-11-23 08:50] LABS: BUN/Creatinine Ratio 11; Blood Urea Nitrogen 11 mg/dL (7-17); Calcium 8.6 mg/dL (8.4-10.2); Hemolysis Index 0
--- NOTE | 2021-11-23 10:16 | Progress Note ---
Assessment and Plan Assessment and plan: 66 YO Female with Obesity was attending [facility] services when the patient collapsed and lost consciousness. Witnesses began CPR. EMS was notified and upon arrival the patient was found to be in distress without perfusing cardiac rhythm. Patient initiated on ACLS protocol and subsequently intubated in the field and transported to ED. The patient regained spontaneous circulation during transport. She was found to have acute hypoxemic respiratory failure, septic shock suspected secondary to aspiration pneumonia, metabolic acidosis, toxic metabolic encephalopathy, shock liver, and cardiac arrest with return of perfusing cardiac rhythm after initiation of ACLS protocol. Patient initiated on sepsis protocol as well as pneumonia protocol. Patient admitted to ICU. Patient improved, extubated on 11/11 and transferred to floor on 11/19. s/p cardiac arrest, collapse at [facility], HFrEF, shock/hypotension resolved Atrial fibrillation/atrial flutter -Cardiac arrest and collapse at [facility] with ROSC -Cardiology consulted, appreciate recommendations - S/p Cardizem gtt- d/c due to low EF; now on PO Amio -s/p vasopressor support with levophed -Echocardiogram shows left ventricular systolic function severely decreased, LVEF 25 to 30%, no pericardial effusion -proBNP 5622 -Continue Lasix 20 mg twice daily, BB, spironolactone, losartan -No significant volume overload clinically Acute hypoxic respiratory failure, right pneumothorax, Angioedema (resolved), pulmonary edema -[facility] consulted, appreciate recommendations -Intubated on 10/29 and extubated on 11/11 -Bipap q HS and prn, at high risk for KOLBY with morbid obesity -NC during day -s/p right chest tube for pneumothorax -s/p steroids for angioedema -On Lasix for pulmonary edema. transaminitis likely shocked liver - resolved Acute kidney injury likely secondary to vasomotor nephropathy, hypernatremia -Nephrology consulted, appreciate recommendations -Krishna replaced 11/05 urinary retention -FeNa 0.05 indicating pre-renal -SIERRA and hyponatremia resolved. Creatinine 1.0 on Lasix IV Shock cardiogenicsuspected sepsis -Fever was as high as 102 with a leukocytosis Blood, urine and sputum cultures negative -COVID-19 PCR negative -S/p empiric antibiotic therapy for possible pneumonia with Rocephin and azithromycin () -S/p Levophed gtt for hypotension -Fever and leukocytosis resolved -Monitor WBC and temperature curve Acute Metabolic encephalopathy, agitation/anxiety -Etiology likely from a cardiac arrest, shock and cerebral hypoperfusion CT head no acute focal parenchymal lesion in the brain -Neurology consulted, appreciate recommendations -EEG and MRI noted, Neuro recommend to cut down on sedation as possible Mental status significantly improved, currently fairly alert and oriented. Answers appropriately. Acute DVT in the left posterior tibial vein and bilateral peroneal veins, Anemia, retroperitoneal bleed -D-dimer greater than 10,000 -CTA chest with no evidence of PE -Bilateral lower extremity ultrasound positive for DVT -Heparin gtt on hold d/t anemia, received PRBC x4 -vasuclar surgery consulted, appreciate recommendations -recommended multiphasic CT angio of the abdomen and pelvis with and without contrast if H/H drops and did not recommend IVC filter at this time as the DVTs are infrapopliteal and recommends a follow-up DVT study weekly for 2 weeks. Repeat venous duplex ultrasound on 11/21 showed progression of left peroneal DVT extending into popliteal vein. Vascular surgery scheduled for IVC filter placement on 11/22. -Trend CBC -SCDs to BLE while in bed -Transfuse hemoglobin less than 7 -Monitor for signs of bleeding -Hemoglobin stable, 8.6 Hypertension, not able be controlled Increase losartan 200 mg daily and add hydralazine as needed. Hyperglycemia ,resolved) -Avoid hypoglycemia -Hbg A1C 6.7 -SSI and lantus q hs (titrate as needed) -Accu-Cheks q. 6 Morbid obesity High risk for KOLBY On nightly BiPAP Deconditioning PT/OT Discussed the patient and the nursing staff. Hospital Course to Date: 10/30: Intubated and sedated, on fentanyl gtt. Open eyes spontaneously but does not follow any commands. On vasopressors, titrate as tolerated for MAP above 65. Patient febrile overnight, continue empiric IV Abx, culture data and COVID PCR pending. Patient is also s/p CT placement due to spontaneous pneumothorax. 2D echo is pending and Cardiology is consulted. 10/31: Patient remains intubated and following commands. Levophed drip stopped and potassium repleted. Patient started on tube feeding. Remains in soft bilateral restraints. 11/01: RN noted ST changes on BSM and 12 lead EKG obtained which showed ST. Given Ativan 1mg for agitation as she is maxed on fentanyl drip and IV push fentanyl did not seem to help. Patient was started on CPAP this morning by RT but remained on fentanyl drip and was having periods of apnea. Plan was to retry CPAP again in the p.m. with sedation off. 11/02: Rate increased r/t hypercapnea on ABG, sedation reduced. Given kionex for hyperkalemia and was started on levophed overnight for hypotension. 11/03: Overnight patient had tachycardia and was given Cardizem and Lopressor. Lopressor was repeated in the a.m. due to tachycardia. Patient will be started on amiodarone with a bolus per cardiology. Patient started on normal saline per liter per [facility] and steroids for angioedema. Noted to have bright red blood when suctioned from oh ETT. Remains on heparin drip as H/H is stable for now. Will reevaluate. Fentanyl drip was restarted last night due to agitation. Dr. Flores updated family today 11/04: Patient was sedated on fentanyl however off sedation is able to follow commands, a.m. labs completed in the p.m. and show hyperkalemia with increased renal function studies. Nephrology, neurology consulted by [facility]. Given Kayexalate, insulin and D50 for hyperkalemia. Patient remains on amiodarone. 11/05: Patient needed to be sedated on fentanyl again to today. overnight krishna was replaced. Hyperkalemia->given kionex 60 for 5.6. Repeat K 6-> Dr. Grant informed and requested bumex, kionex, insulin, d50, calcium gluconate and sodium bicarb with repeat BMP in 2 hours which were placed. HR remains elevated. 11/06: Patient remained in atrial fibrillation/atrial flutter with heart rate in the 150s despite being on amnio drip and was given amnio bolus, Cardizem bolus and started on Cardizem drip by cardiology. Patient is on beta-blockers p.o. scheduled and to feedings changed to Nepro. Kayexalate was given in the morning by nephrology due to hyperkalemia. 11/07: Patient is only responsive to mild stimuli, precedex added in an attempt to wean off fentanyl gtt to better assess her mental status. Neurology also on consult, pending MRI and EEG. Patient remains in Aflutter this am, HR in the 80 to 90s, still on amiodarone and heparin gtt. 11/08: Fentanyl gtt is off, only on precedex gtt. Patient is still not following any commands. MRI brain and EEG completed. Neuro recommendations noted, sedatives agents decreased. FWF added for hypernatremia and low K repleted, repeat labs ordered. Placed a call and spoke with patient's daughter, Eva Brown . She was updated on patient's conditions and status. All questions and concerns were voiced at this time. 11/09: Patient is awake and alert this am, following commands and appropriate. Remains on precedex gtt, plan for possible PST today. Hypertensive overnight, meds adjusted by Cardio and PRN Hydralazine added for SBP greater than 160. CT dislodged overnight, CXR is stable with no significant change. F/U CXR in the am. Patient's daughter, Eva Brown, visited with patient. She was updated on patient's status and goal of care for today. All questions and concerns were voiced at this time. 11/10: Mentation remains intact, still on precedex gtt. This am CXR noted still with fluid overload s/p X1 dose of IV lasix, good response from IV lasix overni ght. Hypernatremia improved, D5W d/dayday. Still with persistent hypokalemia, continue electrolytes replacement and frequent lab check. Daily IV lasix and aldactone added by Cardio. Patient is also with persistent low grade fevers overnight, leukocytosis with mild improvement this am. Will get a repeat sputum culture, hold off on IV abx for now. Consider ID consult if fevers and leukocytosis persist. Patient tolerated PST X4hrs yesterday. PST again today, plan to wean to extubate if tolerated. 11/11: IAM overnight. Off precedex gtt and tolerated PST this am. Plan to wean to extubate today. Additional IV lasix given, plan to keep patient at a net negative balance for better lung compliance. F/U CXR in the am. K improved this am, repeat BMP this afternoon since diuresing. Remains with low grade fevers, leukocytosis downtrending, will continue to monitor. Speech/PT/OT ordered 11/12: S/p extubation, now stable on 3L NC. This am CXR noted with no significant changes, lasix changed to IV X4days BID. Drop in H&H this am, and Lt. flank ecchymosis noted. Heparin gtt on hold for now and orders placed for 1 unit of PRBCs and Ct Abd/Pelvis w/o con to r/o retroperitoneal bleed. Pending speech sw allow eval, keep patient NPO for now. Patient is stable for IMCU status 11/13: Patient with increased WOB and tachycardia this am, patient was placed on Bipap and precedex gtt was resumed. CXR with mild improvement. CT Abd/Pelvis also reviewed large hematomas noted at the Lt. retroperitoneum and left posterior lateral abdominal wall. Heparin gtt is already on hold, patient is hemodynamically stable. Vascular Surgery consulted for possible IVC filter eval. Patient s/p 2units of PRBCs, will continue to trend H&H and transfuse if hbg is less than 7. Worsening renal function this am, IF diuretic on hold for now. Patient is also febrile with spike in wbcs most likely reactive to bleed, will panculture and hold off on IV Abx for now. Patient also failed speech bedside swallow eval yesterday, NGT in placed plan to resume enteral nutrition 11/14: Patient had bilateral lower extremity Doppler ultrasound and vascular surgery has recommended multiphasic CT angio of the abdomen and pelvis with and without contrast if H/H drops and does not recommend IVC filter at this time as the DVTs are infrapopliteal and recommends a DVT study weekly for 2 weeks. FWF 250 q4 ml per nephro. Started on as needed Xanax and p.o. amiodarone. She did not pass her ST evaluation today. Will be transferred to [facility]. 11/15: Resting comfortably on encounter. Speech cleared for pureed diet. Remains on 3l satting 98 % on bedside encounter. Does not appear to be in respiratory distress. Will continue to hold AC, No ivc filter planned at this time. qweekly doppler to monitor for migration of DVT per vascular. If demonstrated, will consider IVC filter. CBC ordered for tomorrow, will continue monitoring in light of retroperitoneal hematoma. FWF increased by nephrology to 350cc q4hr d/t hypernatremia. UOP/renal function both improved. D/w cardiology, will continue amiodorone an additional 24hrs. Plan to change dosing of metoprolol. Continue to wean off of precedex. Continue xanax scheduled for anxiety. physical therapy recs noted, fernanda / ltac will discuss with CM. Continue IMCU monitoring. 11/16: Pulmonary congestion this AM. CXR ordered. Lasix 40 mg IV x 1 order this AM. Will monitor for 24 hrs. potential downgrade to medical floor tomorrow. 11/17: Persisting pulmonary congestion, was on bipap overnight into this AM. Will order additional lasix 40 mg IV x 2. CXR ordered for AM. Possible downgrade to floor tomorrow. Anticipate d/c sunday. 11/18: Patient seen and examined, continue weaning, will continue diuresis BID, discussed with daughter. 11/19: Patient seen and examined this morning doing well no acute distress noted. Lasix was increased to twice daily to 20 mg IV. Clinically improving. Patient will be transferred to telemetry today can be switched to Lasix p.o. twice daily in a.m. She has her weekly Doppler of lower extremity tomorrow vascular is following for this. She was taken off anticoagulation secondary to retroperitoneal bleed., The anticoagulation was started initially for atrial fibrillation and an infrapopliteal DVT. During her hospital stay she had a prolonged ventilator management and was successfully weaned off. She also received a total of 4 units of packed red blood cell. Hemoglobin has remained stable. Anticipate discharge in next 48 hours if continues to clinically stay stable. : Transferred from ICU on 11/19. Progressive improving. Currently awake and oriented. O2 weaned to 4 L. Hemodynamically stable. BP control being optimized. MiraLAX for constipation. Hemoglobin stable on the heparin infusion, being monitored closely with history of retroperitoneal bleed. 11/21: Patient remains mostly bedridden. She is awake and oriented on 2 L of O2. Repeat ultrasound showed extension of left peroneal DVT into popliteal vein. Heparin was discontinued for significant retroperitoneal bleed and off anticoagulation since. Vascular surgery plan for placement of IVC filter tomorrow. Patient is chest pains, palpitations, hemoptysis. She has some cough. Left lower extremity pain likely from DVT better today. Discussed with the patient, nursing staff and vascular surgery. 11/22: The infrapopliteal vein thrombosis has propagated to the left popliteal vein. Vascular surgery to perform IVC filter placement today. 3/2: Vascular surgery placed IVC filter yesterday. Continue metoprolol 100 mg p.o. twice daily, Aldactone 25 mg p.o. daily and losartan 25 mg p.o. daily. Patient still requiring BiPAP (IPAP18, EPAP8) with FiO2 of 30%. Continue to wean oxygen per pulmonary recommendations. Nurse reports patient is having vaginal bleeding. We will check serial CBC and pelvic ultrasound History Interval history: No new issues overnight. Hospitalist Physical - Constitutional Vitals: Temp Pulse Resp BP Pulse Ox 98.6 F 73 18 151/92 100 11/23/21 08:17 11/23/21 08:17 11/23/21 08:17 11/23/21 08:17 11/23/21 08:17 General appearance: Present: no acute distress, obese (Morbidly obese) - EENT Eyes: Present: PERRL, EOM intact ENT: hearing intact, clear oral mucosa, dentition normal - Neck Neck: Present: supple, normal ROM - Respiratory Respiratory effort: normal Respiratory: bilateral: CTA - Cardiovascular Rhythm: regular Heart Sounds: Present: S1 & S2. Absent: gallop, rub - Extremities Extremities: no ischemia, No edema, Full ROM - Abdominal General gastrointestinal: soft, non-tender, non-distended, normal bowel sounds - Integumentary Integumentary: Present: clear, warm, dry - Neurologic Neurologic: CNII-XII intact, moves all extremities HEART Score - HEART Score Troponin: Troponin T 1.150 ng/mL (0.00-0.029) H* D 10/29/21 22:34 Results - Labs CBC & Chem 7: 11/23/21 07:18 11/23/21 07:18 Labs: Laboratory Last Values WBC 9.4 K/mm3 (4.5-11.0) 11/23/21 07:18 RBC 3.23 M/mm3 (3.65-5.03) L 11/23/21 07:18 Hgb 9.1 gm/dl (10.1-14.3) L 11/23/21 07:18 Hct 28.5 % (30.3-42.9) L 11/23/21 07:18 MCV 88 fl (79-97) 11/23/21 07:18 MCH 28 pg (28-32) 11/23/21 07:18 MCHC 32 % (30-34) 11/23/21 07:18 RDW 15.6 % (13.2-15.2) H 11/23/21 07:18 Plt Count 297 K/mm3 (140-440) 11/23/21 07:18 Lymph % (Auto) 9.5 % (13.4-35.0) L 11/18/21 04:53 [place] % (Auto) 9.8 % (0.0-7.3) H 11/18/21 04:53 Eos % (Auto) 1.8 % (0.0-4.3) 11/18/21 04:53 Baso % (Auto) 0.6 % (0.0-1.8) 11/18/21 04:53 Lymph # (Auto) 1.2 K/mm3 (1.2-5.4) 11/18/21 04:53 [place] # (Auto) 1.3 K/mm3 (0.0-0.8) H 11/18/21 04:53 Eos # (Auto) 0.2 K/mm3 (0.0-0.4) 11/18/21 04:53 Baso # (Auto) 0.1 K/mm3 (0.0-0.1) 11/18/21 04:53 Add Manual Diff Complete 11/07/21 06:30 Total Counted 100 11/07/21 06:30 Seg Neutrophils % 78.3 % (40.0-70.0) H 11/18/21 04:53 Seg Neuts % (Manual) 77.0 % (40.0-70.0) H 11/07/21 06:30 Band Neutrophils % 1.0 % 11/07/21 06:30 Lymphocytes % (Manual) 11.0 % (13.4-35.0) L 11/07/21 06:30 Reactive Lymphs % (Man) 3.0 % 11/07/21 06:30 Monocytes % (Manual) 2.0 % (0.0-7.3) 11/07/21 06:30 Eosinophils % (Manual) 0 % (0.0-4.3) 11/07/21 06:30 Basophils % (Manual) 0 % (0.0-1.8) 11/07/21 06:30 Metamyelocytes % 1.0 % 11/07/21 06:30 Myelocytes % 5.0 % 11/07/21 06:30 Promyelocytes % 0 % 11/07/21 06:30 Blast Cells % 0 % 11/07/21 06:30 Nucleated RBC % 2.0 % (0.0-0.9) H 11/07/21 06:30 Seg Neutrophils # 10.2 K/mm3 (1.8-7.7) H 11/18/21 04:53 Seg Neutrophils # Man 12.3 K/mm3 (1.8-7.7) H 11/07/21 06:30 Band Neutrophils # 0.2 K/mm3 11/07/21 06:30 Lymphocytes # (Manual) 1.8 K/mm3 (1.2-5.4) 11/07/21 06:30 Abs React Lymphs (Man) 0.5 K/mm3 11/07/21 06:30 Monocytes # (Manual) 0.3 K/mm3 (0.0-0.8) 11/07/21 06:30 Eosinophils # (Manual) 0.0 K/mm3 (0.0-0.4) 11/07/21 06:30 Basophils # (Manual) 0.0 K/mm3 (0.0-0.1) 11/07/21 06:30 Metamyelocytes # 0.2 K/mm3 11/07/21 06:30 Myelocytes # 0.8 K/mm3 11/07/21 06:30 Promyelocytes # 0.0 K/mm3 11/07/21 06:30 Blast Cells # 0.0 K/mm3 11/07/21 06:30 WBC Morphology Not Reportable 11/07/21 06:30 Hypersegmented Neuts Not Reportable 11/07/21 06:30 Hyposegmented Neuts Not Reportable 11/07/21 06:30 Hypogranular Neuts Not Reportable 11/07/21 06:30 Smudge Cells Not Reportable 11/07/21 06:30 Toxic Granulation Not Reportable 11/07/21 06:30 Toxic Vacuolation Not Reportable 11/07/21 06:30 Dohle Bodies Not Reportable 11/07/21 06:30 Pelger-Huet Anomaly Not Reportable 11/07/21 06:30 Manny Rods Not Reportable 11/07/21 06:30 Platelet Estimate Consistent w auto 11/07/21 06:30 Clumped Platelets Not Reportable 11/07/21 06:30 Plt Clumps, EDTA Not Reportable 11/07/21 06:30 Large Platelets 1+ 11/07/21 06:30 Giant Platelets Not Reportable 11/07/21 06:30 Platelet Satelliting Not Reportable 11/07/21 06:30 Plt Morphology Comment Not Reportable 11/07/21 06:30 RBC Morphology Not Reportable 11/07/21 06:30 Dimorphic RBCs Not Reportable 11/07/21 06:30 Polychromasia Not Reportable 11/07/21 06:30 Hypochromasia 1+ 11/07/21 06:30 Poikilocytosis Not Reportable 11/07/21 06:30 Anisocytosis Not Reportable 11/07/21 06:30 Microcytosis Not Reportable 11/07/21 06:30 Macrocytosis Not Reportable 11/07/21 06:30 Spherocytes 1+ 11/07/21 06:30 Pappenheimer Bodies Not Reportable 11/07/21 06:30 Sickle Cells Not Reportable 11/07/21 06:30 Target Cells 1+ 11/07/21 06:30 Tear Drop Cells Not Reportable 11/07/21 06:30 Ovalocytes Not Reportable 11/07/21 06:30 Helmet Cells Not Reportable 11/07/21 06:30 [place] Bodies Not Reportable 11/07/21 06:[address] [place] Rings Not Reportable 11/07/21 06:30 [place] Cells Not Reportable 11/07/21 06:30 Bite Cells Not Reportable 11/07/21 06:30 Crenated Cell Not Reportable 11/07/21 06:30 Elliptocytes Not Reportable 11/07/21 06:30 Acanthocytes (Spur) Not Reportable 11/07/21 06:30 Rouleaux Not Reportable 11/07/21 06:30 Hemoglobin C Crystals Not Reportable 11/07/21 06:30 Schistocytes Not Reportable 11/07/21 06:30 Malaria parasites Not Reportable 11/07/21 06:30 Magdy Bodies Not Reportable 11/07/21 06:30 Hem Pathologist Commnt No 11/07/21 06:30 PT 17.2 Sec. (12.2-14.9) H 02/06/22 16:30 INR 1.27 (0.87-1.13) H 10/30/21 16:30 APTT 44.4 Sec. (24.2-36.6) H 10/30/21 16:30 D-Dimer > 30895 ng/mlDDU (0-234) H 10/30/21 Unknown Heparin Anti-Xa Level 0.62 U.I./ml (0.3-0.7) 11/12/21 03:30 ABG pH 7.475 pH Units (7.350-7.450) H 11/11/21 13:53 ABG pCO2 45.0 mm Hg 11/11/21 13:53 ABG pO2 64.1 mm Hg (80.0-90.0) L 11/11/21 13:53 ABG HCO3 32.4 mmol/L (20.0-26.0) H 11/11/21 13:53 ABG O2 Saturation 96.3 % (95.0-99.0) 11/11/21 13:53 ABG O2 Content 10.1 (0.0-44) 11/11/21 13:53 ABG Base Excess 8.0 mmol/L (-2.0-3.0) H 11/11/21 13:53 ABG Hemoglobin 7.6 gm/dl (12.0-16.0) L 11/11/21 13:53 ABG Carboxyhemoglobin 1.8 % (0.0-5.0) 11/11/21 13:53 ABG Methemoglobin 0.5 % (0.0-1.5) 11/11/21 13:53 Oxyhemoglobin 94.0 % (95.0-99.0) L 11/11/21 13:53 FiO2 32 % 11/11/21 13:53 Sodium 139 mmol/L (137-145) 11/23/21 07:18 Potassium 3.3 mmol/L (3.6-5.0) L 11/23/21 07:18 Chloride 96.8 mmol/L (98-107) L 11/23/21 07:18 Carbon Dioxide 32 mmol/L (22-30) H 11/23/21 07:18 Anion Gap 14 mmol/L 11/23/21 07:18 BUN 11 mg/dL (7-17) 11/23/21 07:18 Creatinine 1.0 mg/dL (0.6-1.2) 11/23/21 07:18 Estimated GFR > 60 ml/min 11/23/21 07:18 BUN/Creatinine Ratio 11 % 11/23/21 07:18 Glucose 90 mg/dL (65-100) 11/23/21 07:18 POC Glucose 110 mg/dL (70-105) H 11/22/21 16:12 Hemoglobin A1c 6.7 % (4-6) H 10/31/21 04:30 Lactic Acid 0.70 mmol/L (0.7-2.0) 10/31/21 15:45 Calcium 8.6 mg/dL (8.4-10.2) 11/23/21 07:18 Phosphorus 3.10 mg/dL (2.5-4.5) 11/19/21 14:38 Magnesium 1.60 mg/dL (1.7-2.3) L 11/19/21 14:38 Ferritin 208.4 ng/mL (10.0-200.0) H 10/30/21 Unknown Total Bilirubin < 0.20 mg/dL (0.1-1.2) 11/06/21 02:35 AST 21 units/L (5-40) 11/06/21 02:35 ALT 77 units/L (7-56) H 11/06/21 02:35 Alkaline Phosphatase 84 units/L (35-129) 11/06/21 02:35 Ammonia 31.0 umol/L (25-60) 10/29/21 15:10 Lactate Dehydrogenase 469 units/L (91-180) H 10/30/21 Unknown Troponin T 1.150 ng/mL (0.00-0.029) H* D 10/29/21 22:34 C-Reactive Protein 13.40 mg/dL (0.00-1.30) H 10/30/21 Unknown Total Protein 6.3 g/dL (6.3-8.2) 11/06/21 02:35 Albumin 3.0 g/dL (3.9-5) L 11/06/21 02:35 Albumin/Globulin Ratio 0.9 % 11/06/21 02:35 Triglycerides 68 mg/dL (2-149) 10/29/21 19:40 Cholesterol 98 mg/dL (50-199) 10/29/21 19:40 LDL Cholesterol Direct 43 mg/dL (50-130) L 10/29/21 19:40 HDL Cholesterol 50 mg/dL (40-59) 10/29/21 19:40 Cholesterol/HDL Ratio 1.96 % 10/29/21 19:40 Procalcitonin 61.95 ng/mL (<0.15) 10/30/21 Unknown TSH 3.080 mlU/mL (0.270-4.200) 10/29/21 15:10 Urine Color Yellow (Yellow) 11/13/21 08:30 Urine Turbidity Slightly-cloudy (Clear) 11/13/21 08:30 Urine pH 6.0 (5.0-7.0) 11/13/21 08:30 Ur Specific [place] 1.010 (1.003-1.030) 11/13/21 08:30 Urine Protein <15 mg/dl mg/dL (Negative) 11/13/21 08:30 Urine Glucose (UA) Neg mg/dL (Negative) 11/13/21 08:30 Urine Ketones Tr mg/dL (Negative) 11/13/21 08:30 Urine Blood Sm (Negative) 11/13/21 08:30 Urine Nitrite Neg (Negative) 11/13/21 08:30 Urine Bilirubin Neg (Negative) 11/13/21 08:30 Urine Urobilinogen < 2.0 mg/dL (<2.0) 11/13/21 08:30 Ur Leukocyte Esterase Neg (Negative) 11/13/21 08:30 Urine WBC (Auto) < 1.0 /HPF (0.0-6.0) 11/13/21 08:30 Urine RBC (Auto) < 1.0 /HPF (0.0-6.0) 11/13/21 08:30 U Epithel Cells (Auto) < 1.0 /HPF (0-13.0) 11/13/21 08:30 Urine Mucus Few /HPF 10/29/21 18:15 Urine Eosinophils None seen (None Seen) 11/04/21 Unknown Urine Creatinine 190.9 mg/dL (0.1-20.0) H 11/04/21 Unknown Protein/Creatinin Ratio 0.90 11/04/21 Unknown Urine Sodium 10 mmol/L 11/04/21 Unknown Urine Total Protein 172 mg/dL (5-11.8) H 11/04/21 Unknown Salicylates < 0.3 mg/dL (2.8-20.0) L 10/29/21 15:10 Urine Opiates Screen Negative 10/29/21 18:15 Urine Methadone Screen Negative 10/29/21 18:15 Acetaminophen 5.0 ug/mL (10.0-30.0) L 10/29/21 15:10 Ur Barbiturates Screen Negative 10/29/21 18:15 Ur Phencyclidine Scrn Negative 10/29/21 18:15 Ur Amphetamines Screen Negative 10/29/21 18:15 U Benzodiazepines Scrn Negative 10/29/21 18:15 Urine Cocaine Screen Negative 10/29/21 18:15 U Marijuana (THC) Screen Negative 10/29/21 18:15 Drugs of Abuse Note Disclamer 10/29/21 18:15 Plasma/Serum Alcohol < 0.01 % (0-0.07) 10/29/21 15:10 Coronavirus (PCR) Negative (Negative) 10/30/21 Unknown Blood Type O POSITIVE 11/12/21 04:15 Antibody Screen Negative 11/12/21 04:15 Crossmatch See Detail 11/12/21 04:15 Krishna/IV: Voiding Method External Female Catheter Active Medications - Current Medications Current Medications: Generic Name Dose Route Start Last Admin Trade Name Freq PRN Reason Stop Dose Admin Acetaminophen 650 mg 10/29/21 17:04 11/12/21 22:53 Acetaminophen 650 Mg Rect Supp CO 650 mg Q6H PRN Administration Pain MILD(1-3)/Fever >100.5/NIEVES Acetaminophen 650 mg 11/19/21 16:35 11/22/21 09:50 Acetaminophen 325 Mg Tab PO 650 mg Q6HR PRN Administration PAIN Alprazolam 0.25 mg 11/14/21 14:29 11/22/21 21:57 Alprazolam 0.25 Mg Tab PO 0.25 mg Q8H PRN Administration Anxiety Dextrose 0 ml 11/04/21 13:48 11/12/21 05:45 Dextrose 10% *Hypoglycemia IV 50 ml PRN PRN Administration Hypoglycemia Docusate Sodium 100 mg 11/18/21 15:00 11/22/21 21:56 Docusate Sodium 100 Mg Cap PO 100 mg BID RAMON Administration Famotidine 10 mg 11/06/21 10:00 11/22/21 21:56 Famotidine 10 Mg Tab PO 10 mg BID RAMON Administration Furosemide 20 mg 11/18/21 10:00 11/22/21 21:57 Furosemide 20 Mg/2 Ml Inj IV 20 mg BID RAMON Administration Hydralazine HCl 50 mg 11/22/21 22:00 11/23/21 06:21 Hydralazine 25 Mg Tab PO 50 mg Q8HR RAMON Administration Hydrophilic Ointment 1 applic 10/29/21 14:29 11/09/21 08:51 Lip Therapy Vaseline TP 1 applic Q2HR PRN Administration Dry Lips Insulin Human Lispro 0 unit 10/30/21 16:00 11/23/21 06:20 Insulin Lispro 100 Unit/Ml SUB-Q Not Given Q6HR [facility] Protocol Lactulose 20 gm 11/18/21 14:43 11/18/21 15:06 Lactulose 20 Gm/30 Ml Oral Liqd PO 20 gm Q6H PRN Administration Constipation Losartan Potassium 50 mg 11/20/21 11:00 11/22/21 21:59 Losartan 25 Mg Tab PO 50 mg BID RAMON Administration Melatonin 10 mg 11/22/21 17:31 11/22/21 21:56 Melatonin 5 Mg Tab PO 10 mg QHS PRN Administration Sleep Metoprolol Tartrate 100 mg 11/16/21 22:00 11/22/21 21:58 Metoprolol Tartrate 100 Mg Tab PO 100 mg BID RAMON Administration Multi-Ingred Cream/Lotion/Oil/Oint 1 applic 10/29/21 14:29 11/06/21 09:25 Mineral Oil/Petrolatum, White Ophth Oint 3.5 Gm OU 1 applic Q4HR PRN Administration Dry Eye(s) Polyethylene Glycol 17 gm 11/20/21 12:47 11/20/21 13:07 Polyethylene Glycol 3350 17 Gm Powder PO 17 gm QDAY PRN Administration Constipation Senna/Docusate Sodium 1 tab 11/16/21 22:00 11/22/21 21:56 Sennosides/Docusate Sodium 8.6/50 Mg Tab PO 1 tab BID RAMON Administration Sodium Chloride 10 ml 10/29/21 22:00 11/22/21 21:57 Sodium Chloride 0.9% 10 Ml Flush Syringe IV 10 ml BID RAMON Administration Sodium Chloride 10 ml 10/29/21 17:04 Sodium Chloride 0.9% 10 Ml Flush Syringe IV PRN PRN LINE FLUSH Spironolactone 25 mg 11/10/21 10:00 11/22/21 09:41 Spironolactone 25 Mg Tab PO 25 mg QDAY RAMON Administration Nutrition/Malnutrition Assess - Dietary Evaluation Nutrition/Malnutrition Findings: Nutrition Notes Start: 10/30/21 09:50 Freq: Status: Active Protocol: Document 11/17/21 14:55 MEENU (Rec: 11/17/21 15:13 MEENU [id number]) Nutrition Notes Current Diagnosis Sepsis,Hypertension, Respiratory Failure Other Pertinent Diagnosis s/p Cardiac Arrest, DVT, Anemia, Pneumonia, Pneumothorax, P Edema, HFrEF.. . Current Diet Pureed Diet (since L 11/15). Height 5 ft 10 in Weight 112 kg [place] Body Weight (kg) 68.18 BMI 35.4 Weight change and time frame No body weight change reported in 2 days. Weight Status Obese Subjective/Other Information RD consulr for routine F/U on Diet tolerance/advancement. Reports on Pt's PO intake show that pt has a preference for Dinner (100%), that Breakfast or Lunch (0-50%), according to ADL notes. Plans for discharge Pt on . Percent of energy/protein needs met: Prescribed Pureed Diet provides for energy/protein needs (1,804 Kcal/77 g) during LOS. #1 Nutrition Diagnosis Inadequate oral intake Comments: Reports on Pt's PO intake show that pt has a preference for Dinner (100%), that Breakfast or Lunch (0-50%), according to ADL notes. Diagnosis Progress(for reassessment Improved documentation) Is patient on ventilator? No Is Patient Ambulatory and/or Out of Bed No REE-([facility]-confined to bed) 2086.388 Kcal/Kg value to use for calculation 15 Approximate Energy Requirements Using 1680 kcal/Kg Calculation Used for Recommendations Kcal/kg Additional Notes Protein: 0.8-1.2 g/Kg IBW; 70- 105 g/day. Fluids: 1 ml/Kcal, or as per MD. Nutrition Intervention Change Diet Order: Continue Pureed Diet. Goal #1 Maintain body weight within +/ -3% of admission body weight during LOS. Goal #2 Facilitate PO intake of meals with mechanical modification during LOS. Follow-Up By: 11/24/21 Additional Comments Continue monitoring food tolerance, %PO intake of meals , and BM.
[2021-11-23] MEDS: FAMOTIDINE 10 MG TAB PO SCH ×2 (10:43→22:26)
[2021-11-23] MEDS: SENNOSIDES/DOCUSATE SODIUM 8.6/50 MG TAB PO SCH ×2 (10:43→22:26)
[2021-11-23] MEDS: FUROSEMIDE 20 MG/2 ML INJ IV SCH ×2 (10:43→22:26)
[2021-11-23] MEDS: SPIRONOLACTONE 25 MG TAB PO SCH (10:43)
[2021-11-23] MEDS: LOSARTAN 25 MG TAB PO SCH ×2 (10:43→22:26)
[2021-11-23] MEDS: ACETAMINOPHEN 325 MG TAB PO PRN ×2 (10:44→22:29)
[2021-11-23] MEDS: DOCUSATE SODIUM 100 MG CAP PO SCH ×2 (10:44→22:29)
[2021-11-23] MEDS: METOPROLOL TARTRATE 100 MG TAB PO SCH ×2 (10:44→22:26)
--- NOTE | 2021-11-23 14:57 | Progress Note ---
Assessment and Plan Patient is a 66-year-old female with unknown past medical history brought into the ED following outside of hospital cardiac arrest thought to be PEA with thought to have downtime of 7 to 9 minutes however details are unclear S/P PEA cardiopulmonary arrest-No longer on pressors Acute hypoxic respiratory failure-pulm following Septic shock Aspiration pneumonia Atrial flutter w/ RVR- currently sinus rhythm Pneumothorax- s/p CT Acute DVT-on Heparin gtt Hypokalemia Transaminitis Retroperitoneal Hematoma Echo 10/30/2021-technically difficult study due to body habitus. EF 25 to 30%. Right ventricular systolic function is normal. No pericardial effusion Plan: Continue metoprolol 100 mg p.o. twice daily, aldactone 25mg PO QD, and losartan 25 mg p.o. daily Patient for s/p IVC filter No anticoagulation due to contraindication with recent hematoma and current IVC filter Due to patient's decreased EF and history of cardiac arrest order for LifeVest has been placed Discussed plan of care with patient and patient's daughter who was at bedside who verbalized understanding and agreement with plan Continue present management Patient seen in conjunction with Dr. Cueto who agrees with this plan of care - Patient Problems (1) Cardiopulmonary arrest Current Visit: Yes Status: Acute (2) Hypokalemia Current Visit: Yes Status: Acute (3) Transaminitis Current Visit: Yes Status: Acute (4) Aspiration pneumonia Current Visit: Yes Status: Acute (5) Acute hypoxemic respiratory failure Current Visit: Yes Status: Acute (6) Septic shock Current Visit: Yes Status: Acute (7) Toxic metabolic encephalopathy Current Visit: Yes Status: Acute (8) Shock liver Current Visit: Yes Status: Acute Subjective Date of service: 11/23/21 Principal diagnosis: AHRF; Cardiac arrest; R. pneumothorax; pneumonia; AMS; DVT's; SIERRA; Obesity Interval history: Patient resting in bed in no acute distress. Patient sinus rate trending 80s Objective Vital Signs Temp Pulse Resp BP BP Pulse Ox 11/23/21 13:19 96 H 129/78 11/23/21 11:48 98.4 F 112 H 18 131/86 94 11/23/21 10:00 92 11/23/21 08:17 98.6 F 73 18 151/92 100 11/23/21 06:21 78 148/77 11/23/21 04:10 98.2 F 68 19 148/77 99 11/23/21 04:05 68 24 98 11/23/21 02:27 99 11/23/21 00:07 70 25 H 99 11/23/21 00:05 99 11/22/21 23:27 99.6 F 70 18 134/78 100 11/22/21 21:59 79 148/70 11/22/21 21:58 79 148/70 11/22/21 19:00 99.4 F 71 20 148/70 95 11/22/21 15:29 99.5 F 82 16 163/73 96 - Physical Examination General: No Apparent Distress HEENT: Positive: EOMI, Normocephaly Neck: Positive: trachea midline. Negative: JVD/HJR Cardiac: Positive: Reg Rate and Rhythm Lungs: Positive: Normal Breath Sounds Neuro: Positive: Grossly Intact Abdomen: Positive: Soft Skin: Negative: Rash Musculoskeletal: No Pain Extremities: Present: upper extr. pulses, edema, warm - Labs and Meds CBC 11/23/21 Range/Units 07:18 WBC 9.4 (4.5-11.0) K/mm3 RBC 3.23 L (3.65-5.03) M/mm3 Hgb 9.1 L (10.1-14.3) gm/dl Hct 28.5 L (30.3-42.9) % Plt Count 297 (140-440) K/mm3 Comprehensive Metabolic Panel 11/23/21 Range/Units 07:18 Sodium 139 (137-145) mmol/L Potassium 3.3 L (3.6-5.0) mmol/L Chloride 96.8 L (98-107) mmol/L Carbon Dioxide 32 H (22-30) mmol/L BUN 11 (7-17) mg/dL Creatinine 1.0 (0.6-1.2) mg/dL Glucose 90 (65-100) mg/dL Calcium 8.6 (8.4-10.2) mg/dL - Imaging and Cardiology EKG: report reviewed, image reviewed Echo: report reviewed - Telemetry EKG Rhythm: Sinus Rhythm - EKG Sinus rhythms and dysrhythmias: sinus rhythm Ventricular dysrhythmias: ventricular premature com Repolarization changes or abnormalities: nonspecific abnormality, ST segment, and/or T wave Myocardial infarction: septal MT (old age or ind - Allied health notes Allied health notes reviewed: nursing
--- NOTE | 2021-11-23 15:28 | Ultrasound Report ---
ULTRASOUND PELVIS INDICATION / CLINICAL INFORMATION: vaginal bleeding. TECHNIQUE: Transabdominal. Duplex Color Doppler used: Yes. COMPARISON: CT abdomen/pelvis 11/12/2021. FINDINGS: UTERUS: - Appearance: No significant abnormality. - Size (cm): 13.0 x 4.7 x 2.9 cm. - Endometrial Complex (if present): No significant abnormality.. Thickness in cm (if measured) = 0.2 cm. - Mass or cyst: None. - Additional findings: None. RIGHT ADNEXA: The right ovary measures 3.4 x 1.9 x 1.4 cm. No significant ovarian cyst or mass. Ivy l color Doppler blood flow. LEFT ADNEXA: The left ovary is not visualized. There is enlarged left adnexal fluid collection measur ing 9.4 x 14.7 x 21.7 cm, similar to prior CT findings. URINARY BLADDER: No significant abnormality. FREE FLUID: None. ADDITIONAL FINDINGS: None. IMPRESSION: 1. No ultrasound findings to explain vaginal bleeding. Large complex left adnexal fluid collection as described on prior CT. 2. Nonvisualization of the left ovary. 3. No additional abnormality. Scribed by: Susie Marie RDMS, RVT, [email or web address] Scribed: 11/23/2021 1:51 PM I have reviewed the images, agree with this report, and edited this report as needed. Signer Name: Jose Cullen DO Signed: 11/23/2021 3:23 PM Workstation Name: [id number]
--- NOTE | 2021-11-23 16:26 | Progress Note ---
Assessment and Plan Acute hypoxemic respiratory failure on MVS Cardiac arrest with ROSC Acute DVT Right pneumothorax Shock (septic +/- cardiogenic) Possible aspiration pneumonia SIERRA Altered mental status/acute encephalopathy Elevated serum transaminases, likely shock liver Metabolic acidosis Obesity Retro-peritoneal Hematoma Leukocytosis Hypokalemia Lactic acidosis - s/p IVC filter - continue gentle diuresis - continue BIPAP scheduled qhs with prn daytime use - continue care as below otherwise; - continue to wean supplemental oxygen for target O2 sat's > 90% acutely - aspiration precautions - continue bronchodilators with pulmonary hygiene per RT - continue accuchecks with glycemic control per SSI for target blood glucose < 180 mg/dL - avoid nephrotoxins, renally dose all medications - continue to avoid benzodiazepine's, reduce the possibility of delirium - AB's per ID rec's - prn analgesia per pain score - Maintenance of sleep-wake cycle, avoid delirium - G.I. & VTE prophylaxis - PT/OT/ROM exercises - continue mobility protocols for pressure ulcer prophylaxis - Monitor hemodynamics closely - continue other care per attending / other consultants - discharge planning ongoing concurrently COVID SPECIFIC INTERVENTIONS - COVID-19 PCR negative .... Re-evaluate in am & prn Subjective Date of service: 11/23/21 Principal diagnosis: AHRF; Cardiac arrest; R. pneumothorax; pneumonia; AMS; DVT's; SIERRA; Obesity Interval history: Patient is seen today for: Acute hypoxemic respiratory failure; Cardiac arrest with ROSC; Right pneumothorax; pneumonia; AMS; bilateral DVT's; SIERRA; Obesity Seen and examined at bedside; 24hour events reviewed; nursing and respiratory care staff consulted; no adverse overnight events reported to me; resting in bed; s/p IVC filter; no emesis or overt aspiration Objective Vital Signs - 12hr 11/23/21 11/23/21 11/23/21 06:21 08:17 10:00 Temperature 98.6 F Pulse Rate 78 73 Respiratory 18 Rate Blood Pressure 148/77 151/92 O2 Sat by Pulse 100 92 Oximetry 11/23/21 11/23/21 11:48 13:19 Temperature 98.4 F Pulse Rate 112 H 96 H Respiratory 18 Rate Blood Pressure 131/86 129/78 O2 Sat by Pulse 94 Oximetry Constitutional: no acute distress, other (elderly obese female with mildly increased respiratory effort at rest ) Eyes: non-icteric ENT: oropharynx moist Neck: supple, no lymphadenopathy, no JVD, other (large circumference) Effort: mildly labored Ascultation: Bilateral: diminished breath sounds, rhonchi (scant) Percussion: Bilateral: not dull Cardiovascular: irregular rhythm, other (no R/M) Gastrointestinal: normoactive bowel sounds, soft, non-tender, other (obese) Integumentary: normal, other (Left flank ecchymosis with induration) Extremities: no cyanosis, pulses normal, no ischemia or petechiae, edema (2+) Neurologic: normal mental status, non-focal exam (grossly), pupils equal and round, motor strength normal and (weak) Psychiatric: mood appropriate, affect normal CBC and BMP: 11/24/21 07:19 11/24/21 07:19 ABG, PT/INR, D-dimer: ABG ABG pH 7.475 pH Units (7.350-7.450) H 11/11/21 13:53 ABG pCO2 45.0 mm Hg 11/11/21 13:53 ABG pO2 64.1 mm Hg (80.0-90.0) L 11/11/21 13:53 ABG O2 Saturation 96.3 % (95.0-99.0) 11/11/21 13:53 PT/INR, D-dimer PT 17.2 Sec. (12.2-14.9) H 10/30/21 16:30 INR 1.27 (0.87-1.13) H 10/30/21 16:30 D-Dimer > 43596 ng/mlDDU (0-234) H 10/30/21 Unknown Abnormal lab findings: Abnormal Labs 10/29/21 10/29/21 10/29/21 15:10 15:10 15:10 WBC 27.8 H RBC Hgb Hct MCH 27 L RDW Plt Count Lymph % (Auto) [place] % (Auto) Lymph # (Auto) [place] # (Auto) Seg Neutrophils % Seg Neuts % (Manual) 78.0 H Lymphocytes % (Manual) 10.0 L Nucleated RBC % Seg Neutrophils # Seg Neutrophils # Man 21.7 H Monocytes # (Manual) 1.4 H PT INR APTT D-Dimer Heparin Anti-Xa Level ABG pH ABG pO2 ABG HCO3 ABG O2 Saturation ABG Base Excess ABG Hemoglobin Oxyhemoglobin Sodium Potassium Chloride Carbon Dioxide BUN Creatinine Glucose POC Glucose Hemoglobin A1c Lactic Acid 6.80 H* Calcium Phosphorus Magnesium Ferritin AST ALT Alkaline Phosphatase Lactate Dehydrogenase Troponin T 0.089 H C-Reactive Protein Total Protein Albumin LDL Cholesterol Direct Urine Creatinine Urine Total Protein Salicylates Acetaminophen Crossmatch 10/29/21 10/29/21 10/29/21 15:10 15:10 15:10 WBC RBC Hgb Hct MCH RDW Plt Count Lymph % (Auto) [place] % (Auto) Lymph # (Auto) [place] # (Auto) Seg Neutrophils % Seg Neuts % (Manual) Lymphocytes % (Manual) Nucleated RBC % Seg Neutrophils # Seg Neutrophils # Man Monocytes # (Manual) PT INR APTT D-Dimer Heparin Anti-Xa Level ABG pH ABG pO2 ABG HCO3 ABG O2 Saturation ABG Base Excess ABG Hemoglobin Oxyhemoglobin Sodium 136 L Potassium 2.8 L* Chloride 93.4 L Carbon Dioxide 20 L BUN Creatinine Glucose 330 H POC Glucose Hemoglobin A1c Lactic Acid Calcium Phosphorus Magnesium Ferritin AST 1013 H ALT 1289 H Alkaline Phosphatase 246 H Lactate Dehydrogenase Troponin T C-Reactive Protein Total Protein Albumin LDL Cholesterol Direct Urine Creatinine Urine Total Protein Salicylates < 0.3 L Acetaminophen 5.0 L Crossmatch 10/29/21 10/29/21 10/29/21 15:11 16:01 19:29 WBC RBC Hgb Hct MCH RDW Plt Count Lymph % (Auto) [place] % (Auto) Lymph # (Auto) [place] # (Auto) Seg Neutrophils % Seg Neuts % (Manual) Lymphocytes % (Manual) Nucleated RBC % Seg Neutrophils # Seg Neutrophils # Man Monocytes # (Manual) PT INR APTT D-Dimer Heparin Anti-Xa Level ABG pH 7.307 L ABG pO2 64.1 L ABG HCO3 ABG O2 Saturation 90.8 L ABG Base Excess -2.9 L ABG Hemoglobin Oxyhemoglobin 89.3 L Sodium Potassium Chloride Carbon Dioxide BUN Creatinine Glucose POC Glucose Hemoglobin A1c Lactic Acid 2.60 H* Calcium Phosphorus Magnesium 2.90 H Ferritin AST ALT Alkaline Phosphatase Lactate Dehydrogenase Troponin T C-Reactive Protein Total Protein Albumin LDL Cholesterol Direct Urine Creatinine Urine Total Protein Salicylates Acetaminophen Crossmatch 10/29/21 10/29/21 10/30/21 19:40 22:34 04:30 WBC 16.2 H RBC Hgb Hct MCH 26 L RDW 15.5 H Plt Count Lymph % (Auto) 6.2 L [place] % (Auto) Lymph # (Auto) 1.0 L [place] # (Auto) 0.9 H Seg Neutrophils % 88.1 H Seg Neuts % (Manual) Lymphocytes % (Manual) Nucleated RBC % Seg Neutrophils # 14.2 H Seg Neutrophils # Man Monocytes # (Manual) PT INR APTT D-Dimer Heparin Anti-Xa Level ABG pH ABG pO2 ABG HCO3 ABG O2 Saturation ABG Base Excess ABG Hemoglobin Oxyhemoglobin Sodium Potassium Chloride Carbon Dioxide BUN Creatinine Glucose POC Glucose Hemoglobin A1c Lactic Acid Calcium Phosphorus Magnesium Ferritin AST ALT Alkaline Phosphatase Lactate Dehydrogenase Troponin T 1.950 H* D 1.150 H* D C-Reactive Protein Total Protein Albumin LDL Cholesterol Direct 43 L Urine Creatinine Urine Total Protein Salicylates Acetaminophen Crossmatch 10/30/21 10/30/21 10/30/21 04:30 04:35 05:45 WBC RBC Hgb Hct MCH RDW Plt Count Lymph % (Auto) [place] % (Auto) Lymph # (Auto) [place] # (Auto) Seg Neutrophils % Seg Neuts % (Manual) Lymphocytes % (Manual) Nucleated RBC % Seg Neutrophils # Seg Neutrophils # Man Monocytes # (Manual) PT INR APTT D-Dimer Heparin Anti-Xa Level ABG pH ABG pO2 69.5 L ABG HCO3 ABG O2 Saturation ABG Base Excess -2.7 L ABG Hemoglobin Oxyhemoglobin 94.7 L Sodium Potassium Chloride Carbon Dioxide 21 L BUN Creatinine Glucose 159 H POC Glucose 151 H Hemoglobin A1c Lactic Acid Calcium 7.9 L D Phosphorus Magnesium Ferritin AST 461 H ALT 686 H Alkaline Phosphatase 130 H Lactate Dehydrogenase Troponin T C-Reactive Protein Total Protein 5.6 L D Albumin 3.2 L LDL Cholesterol Direct Urine Creatinine Urine Total Protein Salicylates Acetaminophen Crossmatch 10/30/21 10/30/21 10/30/21 11:24 15:59 16:30 WBC RBC Hgb Hct MCH RDW Plt Count Lymph % (Auto) [place] % (Auto) Lymph # (Auto) [place] # (Auto) Seg Neutrophils % Seg Neuts % (Manual) Lymphocytes % (Manual) Nucleated RBC % Seg Neutrophils # Seg Neutrophils # Man Monocytes # (Manual) PT 17.2 H INR 1.27 H APTT 44.4 H D-Dimer Heparin Anti-Xa Level ABG pH ABG pO2 ABG HCO3 ABG O2 Saturation ABG Base Excess ABG Hemoglobin Oxyhemoglobin Sodium Potassium Chloride Carbon Dioxide BUN Creatinine Glucose POC Glucose 153 H 109 H Hemoglobin A1c Lactic Acid Calcium Phosphorus Magnesium Ferritin AST ALT Alkaline Phosphatase Lactate Dehydrogenase Troponin T C-Reactive Protein Total Protein Albumin LDL Cholesterol Direct Urine Creatinine Urine Total Protein Salicylates Acetaminophen Crossmatch 10/30/21 10/30/21 10/30/21 23:00 Unknown Unknown WBC RBC Hgb Hct MCH RDW Plt Count Lymph % (Auto) [place] % (Auto) Lymph # (Auto) [place] # (Auto) Seg Neutrophils % Seg Neuts % (Manual) Lymphocytes % (Manual) Nucleated RBC % Seg Neutrophils # Seg Neutrophils # Man Monocytes # (Manual) PT INR APTT D-Dimer > 70598 H Heparin Anti-Xa Level 0.82 H ABG pH ABG pO2 ABG HCO3 ABG O2 Saturation ABG Base Excess ABG Hemoglobin Oxyhemoglobin Sodium Potassium Chloride Carbon Dioxide BUN Creatinine Glucose POC Glucose Hemoglobin A1c Lactic Acid Calcium Phosphorus Magnesium Ferritin 208.4 H AST ALT Alkaline Phosphatase Lactate Dehydrogenase Troponin T C-Reactive Protein Total Protein Albumin LDL Cholesterol Direct Urine Creatinine Urine Total Protein Salicylates Acetaminophen Crossmatch 10/30/21 10/31/21 10/31/21 Unknown 04:30 04:30 WBC 14.4 H RBC Hgb Hct MCH 26 L RDW Plt Count Lymph % (Auto) [place] % (Auto) Lymph # (Auto) [place] # (Auto) Seg Neutrophils % Seg Neuts % (Manual) Lymphocytes % (Manual) Nucleated RBC % Seg Neutrophils # Seg Neutrophils # Man Monocytes # (Manual) PT INR APTT D-Dimer Heparin Anti-Xa Level ABG pH ABG pO2 ABG HCO3 ABG O2 Saturation ABG Base Excess ABG Hemoglobin Oxyhemoglobin Sodium Potassium 3.5 L Chloride 107.5 H Carbon Dioxide 20 L BUN 28 H Creatinine 1.7 H Glucose 113 H POC Glucose Hemoglobin A1c Lactic Acid Calcium 7.9 L Phosphorus Magnesium Ferritin AST ALT Alkaline Phosphatase Lactate Dehydrogenase 469 H Troponin T C-Reactive Protein 13.40 H Total Protein Albumin LDL Cholesterol Direct Urine Creatinine Urine Total Protein Salicylates Acetaminophen Crossmatch 10/31/21 10/31/21 10/31/21 04:30 05:11 15:30 WBC RBC Hgb Hct MCH RDW Plt Count Lymph % (Auto) [place] % (Auto) Lymph # (Auto) [place] # (Auto) Seg Neutrophils % Seg Neuts % (Manual) Lymphocytes % (Manual) Nucleated RBC % Seg Neutrophils # Seg Neutrophils # Man Monocytes # (Manual) PT INR APTT D-Dimer Heparin Anti-Xa Level ABG pH 7.222 L ABG pO2 61.5 L ABG HCO3 ABG O2 Saturation 86.2 L ABG Base Excess -6.3 L ABG Hemoglobin 11.2 L Oxyhemoglobin 84.5 L Sodium Potassium Chloride Carbon Dioxide BUN Creatinine Glucose POC Glucose 106 H Hemoglobin A1c 6.7 H Lactic Acid Calcium Phosphorus Magnesium Ferritin AST ALT Alkaline Phosphatase Lactate Dehydrogenase Troponin T C-Reactive Protein Total Protein Albumin LDL Cholesterol Direct Urine Creatinine Urine Total Protein Salicylates Acetaminophen Crossmatch 10/31/21 10/31/21 10/31/21 16:07 16:35 17:45 WBC RBC Hgb Hct MCH RDW Plt Count Lymph % (Auto) [place] % (Auto) Lymph # (Auto) [place] # (Auto) Seg Neutrophils % Seg Neuts % (Manual) Lymphocytes % (Manual) Nucleated RBC % Seg Neutrophils # Seg Neutrophils # Man Monocytes # (Manual) PT INR APTT D-Dimer Heparin Anti-Xa Level ABG pH 7.267 L ABG pO2 58.3 L ABG HCO3 ABG O2 Saturation 88.3 L ABG Base Excess -5.9 L ABG Hemoglobin 10.1 L Oxyhemoglobin 86.5 L Sodium Potassium Chloride Carbon Dioxide BUN Creatinine Glucose POC Glucose 115 H Hemoglobin A1c Lactic Acid Calcium Phosphorus Magnesium Ferritin AST ALT Alkaline Phosphatase Lactate Dehydrogenase Troponin T C-Reactive Protein Total Protein Albumin LDL Cholesterol Direct Urine Creatinine 383.6 H Urine Total Protein Salicylates Acetaminophen Crossmatch 11/01/21 11/01/21 11/01/21 00:06 05:08 06:00 WBC 12.6 H RBC 3.43 L Hgb 8.9 L Hct 28.7 L MCH 26 L RDW 15.7 H Plt Count 130 L Lymph % (Auto) [place] % (Auto) Lymph # (Auto) [place] # (Auto) Seg Neutrophils % Seg Neuts % (Manual) Lymphocytes % (Manual) Nucleated RBC % Seg Neutrophils # Seg Neutrophils # Man Monocytes # (Manual) PT INR APTT D-Dimer Heparin Anti-Xa Level ABG pH ABG pO2 ABG HCO3 ABG O2 Saturation ABG Base Excess ABG Hemoglobin Oxyhemoglobin Sodium Potassium Chloride Carbon Dioxide BUN Creatinine Glucose POC Glucose 114 H 120 H Hemoglobin A1c Lactic Acid Calcium Phosphorus Magnesium Ferritin AST ALT Alkaline Phosphatase Lactate Dehydrogenase Troponin T C-Reactive Protein Total Protein Albumin LDL Cholesterol Direct Urine Creatinine Urine Total Protein Salicylates Acetaminophen Crossmatch 11/01/21 11/01/21 11/01/21 06:00 11:43 14:00 WBC RBC Hgb Hct MCH RDW Plt Count Lymph % (Auto) [place] % (Auto) Lymph # (Auto) [place] # (Auto) Seg Neutrophils % Seg Neuts % (Manual) Lymphocytes % (Manual) Nucleated RBC % Seg Neutrophils # Seg Neutrophils # Man Monocytes # (Manual) PT INR APTT D-Dimer Heparin Anti-Xa Level ABG pH 7.349 L ABG pO2 75.6 L ABG HCO3 ABG O2 Saturation ABG Base Excess -3.9 L ABG Hemoglobin 9.8 L Oxyhemoglobin 93.5 L Sodium Potassium Chloride 114.1 H Carbon Dioxide 20 L BUN 33 H Creatinine Glucose 131 H POC Glucose 151 H Hemoglobin A1c Lactic Acid Calcium 7.7 L Phosphorus Magnesium Ferritin AST 79 H ALT 259 H Alkaline Phosphatase Lactate Dehydrogenase Troponin T C-Reactive Protein Total Protein 5.5 L Albumin 2.7 L LDL Cholesterol Direct Urine Creatinine Urine Total Protein Salicylates Acetaminophen Crossmatch 11/01/21 11/01/21 11/02/21 16:45 22:55 05:12 WBC RBC Hgb Hct MCH RDW Plt Count Lymph % (Auto) [place] % (Auto) Lymph # (Auto) [place] # (Auto) Seg Neutrophils % Seg Neuts % (Manual) Lymphocytes % (Manual) Nucleated RBC % Seg Neutrophils # Seg Neutrophils # Man Monocytes # (Manual) PT INR APTT D-Dimer Heparin Anti-Xa Level ABG pH ABG pO2 ABG HCO3 ABG O2 Saturation ABG Base Excess ABG Hemoglobin Oxyhemoglobin Sodium Potassium Chloride Carbon Dioxide BUN Creatinine Glucose POC Glucose 119 H 129 H 140 H Hemoglobin A1c Lactic Acid Calcium Phosphorus Magnesium Ferritin AST ALT Alkaline Phosphatase Lactate Dehydrogenase Troponin T C-Reactive Protein Total Protein Albumin LDL Cholesterol Direct Urine Creatinine Urine Total Protein Salicylates Acetaminophen Crossmatch 11/02/21 11/02/21 11/02/21 05:35 05:35 09:35 WBC 13.5 H RBC 3.60 L Hgb 9.7 L Hct MCH 27 L RDW 15.7 H Plt Count Lymph % (Auto) [place] % (Auto) Lymph # (Auto) [place] # (Auto) Seg Neutrophils % Seg Neuts % (Manual) Lymphocytes % (Manual) Nucleated RBC % Seg Neutrophils # Seg Neutrophils # Man Monocytes # (Manual) PT INR APTT D-Dimer Heparin Anti-Xa Level ABG pH 7.208 L ABG pO2 75.9 L ABG HCO3 ABG O2 Saturation 93.6 L ABG Base Excess -4.3 L ABG Hemoglobin 9.1 L Oxyhemoglobin 91.6 L Sodium Potassium 5.2 H D Chloride 112.6 H Carbon Dioxide BUN 32 H Creatinine Glucose 152 H POC Glucose Hemoglobin A1c Lactic Acid Calcium 8.2 L Phosphorus Magnesium 2.70 H Ferritin AST ALT Alkaline Phosphatase Lactate Dehydrogenase Troponin T C-Reactive Protein Total Protein Albumin LDL Cholesterol Direct Urine Creatinine Urine Total Protein Salicylates Acetaminophen Crossmatch 11/02/21 11/02/21 11/02/21 11:44 17:13 23:43 WBC RBC Hgb Hct MCH RDW Plt Count Lymph % (Auto) [place] % (Auto) Lymph # (Auto) [place] # (Auto) Seg Neutrophils % Seg Neuts % (Manual) Lymphocytes % (Manual) Nucleated RBC % Seg Neutrophils # Seg Neutrophils # Man Monocytes # (Manual) PT INR APTT D-Dimer Heparin Anti-Xa Level ABG pH ABG pO2 ABG HCO3 ABG O2 Saturation ABG Base Excess ABG Hemoglobin Oxyhemoglobin Sodium Potassium Chloride Carbon Dioxide BUN Creatinine Glucose POC Glucose 173 H 148 H 137 H Hemoglobin A1c Lactic Acid Calcium Phosphorus Magnesium Ferritin AST ALT Alkaline Phosphatase Lactate Dehydrogenase Troponin T C-Reactive Protein Total Protein Albumin LDL Cholesterol Direct Urine Creatinine Urine Total Protein Salicylates Acetaminophen Crossmatch 11/03/21 11/03/21 11/03/21 04:59 06:00 06:00 WBC RBC 3.43 L Hgb 9.1 L Hct 29.0 L MCH 26 L RDW 16.4 H Plt Count Lymph % (Auto) [place] % (Auto) Lymph # (Auto) [place] # (Auto) Seg Neutrophils % Seg Neuts % (Manual) Lymphocytes % (Manual) Nucleated RBC % Seg Neutrophils # Seg Neutrophils # Man Monocytes # (Manual) PT INR APTT D-Dimer Heparin Anti-Xa Level 0.17 L ABG pH ABG pO2 ABG HCO3 ABG O2 Saturation ABG Base Excess ABG Hemoglobin Oxyhemoglobin Sodium Potassium Chloride Carbon Dioxide BUN Creatinine Glucose POC Glucose 167 H Hemoglobin A1c Lactic Acid Calcium Phosphorus Magnesium Ferritin AST ALT Alkaline Phosphatase Lactate Dehydrogenase Troponin T C-Reactive Protein Total Protein Albumin LDL Cholesterol Direct Urine Creatinine Urine Total Protein Salicylates Acetaminophen Crossmatch 0211/03/21 11/03/21 06:00 09:20 11:58 WBC RBC Hgb Hct MCH RDW Plt Count Lymph % (Auto) [place] % (Auto) Lymph # (Auto) [place] # (Auto) Seg Neutrophils % Seg Neuts % (Manual) Lymphocytes % (Manual) Nucleated RBC % Seg Neutrophils # Seg Neutrophils # Man Monocytes # (Manual) PT INR APTT D-Dimer Heparin Anti-Xa Level ABG pH 7.274 L ABG pO2 75.6 L ABG HCO3 ABG O2 Saturation 94.9 L ABG Base Excess -2.5 L ABG Hemoglobin 9.3 L Oxyhemoglobin 92.9 L Sodium 149 H Potassium Chloride 117.5 H Carbon Dioxide BUN 32 H Creatinine Glucose 173 H POC Glucose 192 H Hemoglobin A1c Lactic Acid Calcium 8.1 L Phosphorus Magnesium Ferritin AST ALT Alkaline Phosphatase Lactate Dehydrogenase Troponin T C-Reactive Protein Total Protein Albumin LDL Cholesterol Direct Urine Creatinine Urine Total Protein Salicylates Acetaminophen Crossmatch 11/03/21 11/03/21 11/04/21 18:22 Unknown 00:09 WBC RBC Hgb Hct MCH RDW Plt Count Lymph % (Auto) [place] % (Auto) Lymph # (Auto) [place] # (Auto) Seg Neutrophils % Seg Neuts % (Manual) Lymphocytes % (Manual) Nucleated RBC % Seg Neutrophils # Seg Neutrophils # Man Monocytes # (Manual) PT INR APTT D-Dimer Heparin Anti-Xa Level 0.29 L ABG pH ABG pO2 ABG HCO3 ABG O2 Saturation ABG Base Excess ABG Hemoglobin Oxyhemoglobin Sodium Potassium Chloride Carbon Dioxide BUN Creatinine Glucose POC Glucose 178 H 221 H Hemoglobin A1c Lactic Acid Calcium Phosphorus Magnesium Ferritin AST ALT Alkaline Phosphatase Lactate Dehydrogenase Troponin T C-Reactive Protein Total Protein Albumin LDL Cholesterol Direct Urine Creatinine Urine Total Protein Salicylates Acetaminophen Crossmatch 11/04/21 11/04/21 11/04/21 05:09 09:40 09:40 WBC 16.8 H RBC Hgb Hct MCH 27 L RDW 16.5 H Plt Count Lymph % (Auto) [place] % (Auto) Lymph # (Auto) [place] # (Auto) Seg Neutrophils % Seg Neuts % (Manual) Lymphocytes % (Manual) Nucleated RBC % Seg Neutrophils # Seg Neutrophils # Man Monocytes # (Manual) PT INR APTT D-Dimer Heparin Anti-Xa Level ABG pH ABG pO2 ABG HCO3 ABG O2 Saturation ABG Base Excess ABG Hemoglobin Oxyhemoglobin Sodium Potassium 5.9 H Chloride 108.5 H Carbon Dioxide BUN 54 H Creatinine 1.8 H Glucose 198 H POC Glucose 182 H Hemoglobin A1c Lactic Acid Calcium Phosphorus Magnesium 3.00 H Ferritin AST ALT Alkaline Phosphatase Lactate Dehydrogenase Troponin T C-Reactive Protein Total Protein Albumin LDL Cholesterol Direct Urine Creatinine Urine Total Protein Salicylates Acetaminophen Crossmatch 11/04/21 11/04/21 11/04/21 12:13 13:34 14:05 WBC RBC Hgb Hct MCH RDW Plt Count Lymph % (Auto) [place] % (Auto) Lymph # (Auto) [place] # (Auto) Seg Neutrophils % Seg Neuts % (Manual) Lymphocytes % (Manual) Nucleated RBC % Seg Neutrophils # Seg Neutrophils # Man Monocytes # (Manual) PT INR APTT D-Dimer Heparin Anti-Xa Level ABG pH 7.223 L ABG pO2 71.3 L ABG HCO3 ABG O2 Saturation 92.8 L ABG Base Excess ABG Hemoglobin 8.2 L Oxyhemoglobin 91.0 L Sodium Potassium Chloride Carbon Dioxide BUN Creatinine Glucose POC Glucose 184 H Hemoglobin A1c Lactic Acid Calcium Phosphorus Magnesium Ferritin AST ALT Alkaline Phosphatase Lactate Dehydrogenase Troponin T C-Reactive Protein Total Protein Albumin LDL Cholesterol Direct Urine Creatinine 184.6 H Urine Total Protein Salicylates Acetaminophen Crossmatch 11/04/21 11/04/21 11/05/21 18:02 Unknown 00:07 WBC RBC Hgb Hct MCH RDW Plt Count Lymph % (Auto) [place] % (Auto) Lymph # (Auto) [place] # (Auto) Seg Neutrophils % Seg Neuts % (Manual) Lymphocytes % (Manual) Nucleated RBC % Seg Neutrophils # Seg Neutrophils # Man Monocytes # (Manual) PT INR APTT D-Dimer Heparin Anti-Xa Level ABG pH ABG pO2 ABG HCO3 ABG O2 Saturation ABG Base Excess ABG Hemoglobin Oxyhemoglobin Sodium Potassium Chloride Carbon Dioxide BUN Creatinine Glucose POC Glucose 262 H 259 H Hemoglobin A1c Lactic Acid Calcium Phosphorus Magnesium Ferritin AST ALT Alkaline Phosphatase Lactate Dehydrogenase Troponin T C-Reactive Protein Total Protein Albumin LDL Cholesterol Direct Urine Creatinine 190.9 H Urine Total Protein 172 H Salicylates Acetaminophen Crossmatch 11/05/21 11/05/21 11/05/21 04:20 04:20 05:30 WBC 17.9 H RBC 3.64 L Hgb 9.7 L Hct MCH 27 L RDW 16.4 H Plt Count Lymph % (Auto) [place] % (Auto) Lymph # (Auto) [place] # (Auto) Seg Neutrophils % Seg Neuts % (Manual) Lymphocytes % (Manual) Nucleated RBC % Seg Neutrophils # Seg Neutrophils # Man Monocytes # (Manual) PT INR APTT D-Dimer Heparin Anti-Xa Level ABG pH ABG pO2 ABG HCO3 ABG O2 Saturation ABG Base Excess ABG Hemoglobin Oxyhemoglobin Sodium Potassium 5.6 H Chloride 108.4 H Carbon Dioxide BUN 71 H Creatinine 1.9 H Glucose 270 H POC Glucose 283 H Hemoglobin A1c Lactic Acid Calcium Phosphorus Magnesium Ferritin AST ALT Alkaline Phosphatase Lactate Dehydrogenase Troponin T C-Reactive Protein Total Protein Albumin LDL Cholesterol Direct Urine Creatinine Urine Total Protein Salicylates Acetaminophen Crossmatch 11/05/21 11/05/21 11/05/21 10:05 12:10 15:29 WBC RBC Hgb Hct MCH RDW Plt Count Lymph % (Auto) [place] % (Auto) Lymph # (Auto) [place] # (Auto) Seg Neutrophils % Seg Neuts % (Manual) Lymphocytes % (Manual) Nucleated RBC % Seg Neutrophils # Seg Neutrophils # Man Monocytes # (Manual) PT INR APTT D-Dimer Heparin Anti-Xa Level ABG pH 7.248 L ABG pO2 73.7 L ABG HCO3 26.2 H ABG O2 Saturation 93.1 L ABG Base Excess ABG Hemoglobin 8.9 L Oxyhemoglobin 91.4 L Sodium Potassium Chloride Carbon Dioxide BUN Creatinine Glucose POC Glucose 225 H 199 H Hemoglobin A1c Lactic Acid Calcium Phosphorus Magnesium Ferritin AST ALT Alkaline Phosphatase Lactate Dehydrogenase Troponin T C-Reactive Protein Total Protein Albumin LDL Cholesterol Direct Urine Creatinine Urine Total Protein Salicylates Acetaminophen Crossmatch 11/05/21 11/05/21 11/05/21 15:51 17:32 17:40 WBC RBC Hgb Hct MCH RDW Plt Count Lymph % (Auto) [place] % (Auto) Lymph # (Auto) [place] # (Auto) Seg Neutrophils % Seg Neuts % (Manual) Lymphocytes % (Manual) Nucleated RBC % Seg Neutrophils # Seg Neutrophils # Man Monocytes # (Manual) PT INR APTT D-Dimer Heparin Anti-Xa Level ABG pH ABG pO2 ABG HCO3 ABG O2 Saturation ABG Base Excess ABG Hemoglobin Oxyhemoglobin Sodium Potassium 5.2 H Chloride 107.8 H Carbon Dioxide BUN 79 H Creatinine 1.9 H Glucose 204 H POC Glucose 278 H 197 H Hemoglobin A1c Lactic Acid Calcium Phosphorus Magnesium Ferritin AST ALT Alkaline Phosphatase Lactate Dehydrogenase Troponin T C-Reactive Protein Total Protein Albumin LDL Cholesterol Direct Urine Creatinine Urine Total Protein Salicylates Acetaminophen Crossmatch 11/05/21 11/05/21 11/05/21 21:25 22:22 23:43 WBC RBC Hgb Hct MCH RDW Plt Count Lymph % (Auto) [place] % (Auto) Lymph # (Auto) [place] # (Auto) Seg Neutrophils % Seg Neuts % (Manual) Lymphocytes % (Manual) Nucleated RBC % Seg Neutrophils # Seg Neutrophils # Man Monocytes # (Manual) PT INR APTT D-Dimer Heparin Anti-Xa Level ABG pH ABG pO2 ABG HCO3 ABG O2 Saturation ABG Base Excess ABG Hemoglobin Oxyhemoglobin Sodium Potassium 5.3 H Chloride 109.2 H Carbon Dioxide BUN 81 H Creatinine 2.0 H Glucose 195 H POC Glucose 180 H 203 H Hemoglobin A1c Lactic Acid Calcium Phosphorus Magnesium Ferritin AST ALT Alkaline Phosphatase Lactate Dehydrogenase Troponin T C-Reactive Protein Total Protein Albumin LDL Cholesterol Direct Urine Creatinine Urine Total Protein Salicylates Acetaminophen Crossmatch 11/05/21 11/06/21 11/06/21 Unknown 02:35 05:09 WBC RBC Hgb Hct MCH RDW Plt Count Lymph % (Auto) [place] % (Auto) Lymph # (Auto) [place] # (Auto) Seg Neutrophils % Seg Neuts % (Manual) Lymphocytes % (Manual) Nucleated RBC % Seg Neutrophils # Seg Neutrophils # Man Monocytes # (Manual) PT INR APTT D-Dimer Heparin Anti-Xa Level ABG pH ABG pO2 ABG HCO3 ABG O2 Saturation ABG Base Excess ABG Hemoglobin Oxyhemoglobin Sodium 146 H Potassium 6.0 H Chloride 108.1 H 107.1 H Carbon Dioxide 21 L BUN 80 H 84 H Creatinine 2.0 H 2.0 H Glucose 238 H 235 H POC Glucose 215 H Hemoglobin A1c Lactic Acid Calcium Phosphorus Magnesium 2.80 H Ferritin AST ALT 77 H Alkaline Phosphatase Lactate Dehydrogenase Troponin T C-Reactive Protein Total Protein Albumin 3.0 L LDL Cholesterol Direct Urine Creatinine Urine Total Protein Salicylates Acetaminophen Crossmatch 11/06/21 11/06/21 11/06/21 05:40 08:07 08:07 WBC RBC Hgb Hct MCH RDW Plt Count Lymph % (Auto) [place] % (Auto) Lymph # (Auto) [place] # (Auto) Seg Neutrophils % Seg Neuts % (Manual) Lymphocytes % (Manual) Nucleated RBC % Seg Neutrophils # Seg Neutrophils # Man Monocytes # (Manual) PT INR APTT D-Dimer Heparin Anti-Xa Level 1.24 H ABG pH 7.311 L ABG pO2 72.8 L ABG HCO3 29.7 H ABG O2 Saturation 94.1 L ABG Base Excess ABG Hemoglobin 11.4 L Oxyhemoglobin 92.3 L Sodium Potassium 5.2 H Chloride Carbon Dioxide BUN 85 H Creatinine 2.3 H Glucose 236 H POC Glucose Hemoglobin A1c Lactic Acid Calcium Phosphorus Magnesium Ferritin AST ALT Alkaline Phosphatase Lactate Dehydrogenase Troponin T C-Reactive Protein Total Protein Albumin LDL Cholesterol Direct Urine Creatinine Urine Total Protein Salicylates Acetaminophen Crossmatch 11/06/21 11/06/21 11/06/21 12:14 12:57 14:28 WBC RBC Hgb Hct MCH RDW Plt Count Lymph % (Auto) [place] % (Auto) Lymph # (Auto) [place] # (Auto) Seg Neutrophils % Seg Neuts % (Manual) Lymphocytes % (Manual) Nucleated RBC % Seg Neutrophils # Seg Neutrophils # Man Monocytes # (Manual) PT INR APTT D-Dimer Heparin Anti-Xa Level ABG pH 7.282 L ABG pO2 72.6 L ABG HCO3 30.8 H ABG O2 Saturation 93.7 L ABG Base Excess 3.2 H ABG Hemoglobin 8.6 L Oxyhemoglobin 91.8 L Sodium Potassium Chloride Carbon Dioxide BUN 91 H Creatinine 2.6 H Glucose 259 H POC Glucose 225 H Hemoglobin A1c Lactic Acid Calcium Phosphorus Magnesium Ferritin AST ALT Alkaline Phosphatase Lactate Dehydrogenase Troponin T C-Reactive Protein Total Protein Albumin LDL Cholesterol Direct Urine Creatinine Urine Total Protein Salicylates Acetaminophen Crossmatch 11/06/21 11/06/21 11/06/21 17:28 19:20 21:30 WBC RBC Hgb Hct MCH RDW Plt Count Lymph % (Auto) [place] % (Auto) Lymph # (Auto) [place] # (Auto) Seg Neutrophils % Seg Neuts % (Manual) Lymphocytes % (Manual) Nucleated RBC % Seg Neutrophils # Seg Neutrophils # Man Monocytes # (Manual) PT INR APTT D-Dimer Heparin Anti-Xa Level 0.73 H ABG pH ABG pO2 ABG HCO3 ABG O2 Saturation ABG Base Excess ABG Hemoglobin Oxyhemoglobin Sodium Potassium Chloride Carbon Dioxide BUN 95 H Creatinine 2.9 H Glucose 233 H POC Glucose 206 H Hemoglobin A1c Lactic Acid Calcium Phosphorus Magnesium Ferritin AST ALT Alkaline Phosphatase Lactate Dehydrogenase Troponin T C-Reactive Protein Total Protein Albumin LDL Cholesterol Direct Urine Creatinine Urine Total Protein Salicylates Acetaminophen Crossmatch 11/06/21 11/07/21 11/07/21 22:56 05:06 06:30 WBC RBC Hgb Hct MCH RDW Plt Count Lymph % (Auto) [place] % (Auto) Lymph # (Auto) [place] # (Auto) Seg Neutrophils % Seg Neuts % (Manual) Lymphocytes % (Manual) Nucleated RBC % Seg Neutrophils # Seg Neutrophils # Man Monocytes # (Manual) PT INR APTT D-Dimer Heparin Anti-Xa Level ABG pH ABG pO2 ABG HCO3 ABG O2 Saturation ABG Base Excess ABG Hemoglobin Oxyhemoglobin Sodium 146 H Potassium Chloride Carbon Dioxide BUN 98 H Creatinine 2.8 H Glucose 202 H POC Glucose 215 H 172 H Hemoglobin A1c Lactic Acid Calcium Phosphorus 4.90 H D Magnesium 2.90 H Ferritin AST ALT Alkaline Phosphatase Lactate Dehydrogenase Troponin T C-Reactive Protein Total Protein Albumin LDL Cholesterol Direct Urine Creatinine Urine Total Protein Salicylates Acetaminophen Crossmatch 11/07/21 11/07/21 11/07/21 06:30 11:26 12:15 WBC 16.0 H RBC 3.06 L Hgb 8.2 L Hct 26.1 L MCH 27 L RDW 16.2 H Plt Count Lymph % (Auto) [place] % (Auto) Lymph # (Auto) [place] # (Auto) Seg Neutrophils % Seg Neuts % (Manual) 77.0 H Lymphocytes % (Manual) 11.0 L Nucleated RBC % 2.0 H Seg Neutrophils # Seg Neutrophils # Man 12.3 H Monocytes # (Manual) PT INR APTT D-Dimer Heparin Anti-Xa Level ABG pH 7.298 L ABG pO2 73.0 L ABG HCO3 33.3 H ABG O2 Saturation 94.4 L ABG Base Excess 5.8 H ABG Hemoglobin 8.2 L Oxyhemoglobin 92.7 L Sodium Potassium Chloride Carbon Dioxide BUN Creatinine Glucose POC Glucose 179 H Hemoglobin A1c Lactic Acid Calcium Phosphorus Magnesium Ferritin AST ALT Alkaline Phosphatase Lactate Dehydrogenase Troponin T C-Reactive Protein Total Protein Albumin LDL Cholesterol Direct Urine Creatinine Urine Total Protein Salicylates Acetaminophen Crossmatch 11/07/21 11/07/21 11/07/21 17:57 22:16 23:49 WBC RBC Hgb Hct MCH RDW Plt Count Lymph % (Auto) [place] % (Auto) Lymph # (Auto) [place] # (Auto) Seg Neutrophils % Seg Neuts % (Manual) Lymphocytes % (Manual) Nucleated RBC % Seg Neutrophils # Seg Neutrophils # Man Monocytes # (Manual) PT INR APTT D-Dimer Heparin Anti-Xa Level ABG pH ABG pO2 ABG HCO3 ABG O2 Saturation ABG Base Excess ABG Hemoglobin Oxyhemoglobin Sodium Potassium Chloride Carbon Dioxide BUN Creatinine Glucose POC Glucose 166 H 223 H 190 H Hemoglobin A1c Lactic Acid Calcium Phosphorus Magnesium Ferritin AST ALT Alkaline Phosphatase Lactate Dehydrogenase Troponin T C-Reactive Protein Total Protein Albumin LDL Cholesterol Direct Urine Creatinine Urine Total Protein Salicylates Acetaminophen Crossmatch 11/08/21 11/08/21 11/08/21 04:20 04:20 06:16 WBC 22.1 H RBC 3.01 L Hgb 8.1 L Hct 25.6 L MCH 27 L RDW 15.4 H Plt Count Lymph % (Auto) [place] % (Auto) Lymph # (Auto) [place] # (Auto) Seg Neutrophils % Seg Neuts % (Manual) Lymphocytes % (Manual) Nucleated RBC % Seg Neutrophils # Seg Neutrophils # Man Monocytes # (Manual) PT INR APTT D-Dimer Heparin Anti-Xa Level ABG pH ABG pO2 ABG HCO3 ABG O2 Saturation ABG Base Excess ABG Hemoglobin Oxyhemoglobin Sodium 151 H Potassium 3.1 L D Chloride 107.3 H Carbon Dioxide 31 H BUN 82 H Creatinine 1.8 H Glucose 232 H POC Glucose 198 H Hemoglobin A1c Lactic Acid Calcium 8.1 L Phosphorus Magnesium Ferritin AST ALT Alkaline Phosphatase Lactate Dehydrogenase Troponin T C-Reactive Protein Total Protein Albumin LDL Cholesterol Direct Urine Creatinine Urine Total Protein Salicylates Acetaminophen Crossmatch 11/08/21 11/08/21 11/08/21 11:38 12:00 18:29 WBC RBC Hgb Hct MCH RDW Plt Count Lymph % (Auto) [place] % (Auto) Lymph # (Auto) [place] # (Auto) Seg Neutrophils % Seg Neuts % (Manual) Lymphocytes % (Manual) Nucleated RBC % Seg Neutrophils # Seg Neutrophils # Man Monocytes # (Manual) PT INR APTT D-Dimer Heparin Anti-Xa Level ABG pH ABG pO2 ABG HCO3 ABG O2 Saturation ABG Base Excess ABG Hemoglobin Oxyhemoglobin Sodium Potassium 3.0 L Chloride Carbon Dioxide BUN Creatinine Glucose POC Glucose 190 H 211 H Hemoglobin A1c Lactic Acid Calcium Phosphorus Magnesium Ferritin AST ALT Alkaline Phosphatase Lactate Dehydrogenase Troponin T C-Reactive Protein Total Protein Albumin LDL Cholesterol Direct Urine Creatinine Urine Total Protein Salicylates Acetaminophen Crossmatch 11/08/21 11/08/21 11/09/21 21:34 21:40 00:36 WBC RBC Hgb Hct MCH RDW Plt Count Lymph % (Auto) [place] % (Auto) Lymph # (Auto) [place] # (Auto) Seg Neutrophils % Seg Neuts % (Manual) Lymphocytes % (Manual) Nucleated RBC % Seg Neutrophils # Seg Neutrophils # Man Monocytes # (Manual) PT INR APTT D-Dimer Heparin Anti-Xa Level ABG pH ABG pO2 ABG HCO3 ABG O2 Saturation ABG Base Excess ABG Hemoglobin Oxyhemoglobin Sodium 148 H Potassium 2.8 L* Chloride Carbon Dioxide 31 H BUN 68 H Creatinine 1.5 H Glucose 191 H POC Glucose 194 H 140 H Hemoglobin A1c Lactic Acid Calcium 8.2 L Phosphorus Magnesium Ferritin AST ALT Alkaline Phosphatase Lactate Dehydrogenase Troponin T C-Reactive Protein Total Protein Albumin LDL Cholesterol Direct Urine Creatinine Urine Total Protein Salicylates Acetaminophen Crossmatch 11/09/21 11/09/21 11/09/21 04:51 04:51 04:51 WBC 27.6 H RBC 3.18 L Hgb 8.4 L Hct 26.6 L MCH 27 L RDW 15.3 H Plt Count Lymph % (Auto) [place] % (Auto) Lymph # (Auto) [place] # (Auto) Seg Neutrophils % Seg Neuts % (Manual) Lymphocytes % (Manual) Nucleated RBC % Seg Neutrophils # Seg Neutrophils # Man Monocytes # (Manual) PT INR APTT D-Dimer Heparin Anti-Xa Level 0.18 L ABG pH ABG pO2 ABG HCO3 ABG O2 Saturation ABG Base Excess ABG Hemoglobin Oxyhemoglobin Sodium 148 H Potassium 2.7 L* Chloride Carbon Dioxide BUN 59 H Creatinine 1.4 H Glucose 143 H POC Glucose Hemoglobin A1c Lactic Acid Calcium 8.3 L Phosphorus Magnesium Ferritin AST ALT Alkaline Phosphatase Lactate Dehydrogenase Troponin T C-Reactive Protein Total Protein Albumin LDL Cholesterol Direct Urine Creatinine Urine Total Protein Salicylates Acetaminophen Crossmatch 11/09/21 11/09/21 11/09/21 05:52 08:45 11:00 WBC RBC Hgb Hct MCH RDW Plt Count Lymph % (Auto) [place] % (Auto) Lymph # (Auto) [place] # (Auto) Seg Neutrophils % Seg Neuts % (Manual) Lymphocytes % (Manual) Nucleated RBC % Seg Neutrophils # Seg Neutrophils # Man Monocytes # (Manual) PT INR APTT D-Dimer Heparin Anti-Xa Level ABG pH ABG pO2 73.2 L ABG HCO3 33.8 H ABG O2 Saturation ABG Base Excess 8.7 H ABG Hemoglobin 8.5 L Oxyhemoglobin 94.1 L Sodium Potassium Chloride Carbon Dioxide BUN Creatinine Glucose POC Glucose 166 H 136 H Hemoglobin A1c Lactic Acid Calcium Phosphorus Magnesium Ferritin AST ALT Alkaline Phosphatase Lactate Dehydrogenase Troponin T C-Reactive Protein Total Protein Albumin LDL Cholesterol Direct Urine Creatinine Urine Total Protein Salicylates Acetaminophen Crossmatch 11/09/21 11/09/21 11/09/21 15:48 16:10 20:31 WBC RBC Hgb Hct MCH RDW Plt Count Lymph % (Auto) [place] % (Auto) Lymph # (Auto) [place] # (Auto) Seg Neutrophils % Seg Neuts % (Manual) Lymphocytes % (Manual) Nucleated RBC % Seg Neutrophils # Seg Neutrophils # Man Monocytes # (Manual) PT INR APTT D-Dimer Heparin Anti-Xa Level ABG pH ABG pO2 ABG HCO3 ABG O2 Saturation ABG Base Excess ABG Hemoglobin Oxyhemoglobin Sodium Potassium 2.8 L* Chloride Carbon Dioxide 31 H BUN 53 H Creatinine 1.3 H Glucose 208 H POC Glucose 203 H 166 H Hemoglobin A1c Lactic Acid Calcium 7.9 L Phosphorus Magnesium Ferritin AST ALT Alkaline Phosphatase Lactate Dehydrogenase Troponin T C-Reactive Protein Total Protein Albumin LDL Cholesterol Direct Urine Creatinine Urine Total Protein Salicylates Acetaminophen Crossmatch 11/09/21 11/09/21 11/09/21 21:30 23:16 Unknown WBC RBC Hgb Hct MCH RDW Plt Count Lymph % (Auto) [place] % (Auto) Lymph # (Auto) [place] # (Auto) Seg Neutrophils % Seg Neuts % (Manual) Lymphocytes % (Manual) Nucleated RBC % Seg Neutrophils # Seg Neutrophils # Man Monocytes # (Manual) PT INR APTT D-Dimer Heparin Anti-Xa Level 0.24 L ABG pH ABG pO2 ABG HCO3 ABG O2 Saturation ABG Base Excess ABG Hemoglobin Oxyhemoglobin Sodium Potassium Chloride Carbon Dioxide BUN 52 H Creatinine 1.4 H Glucose 185 H POC Glucose 172 H Hemoglobin A1c Lactic Acid Calcium 7.8 L Phosphorus Magnesium Ferritin AST ALT Alkaline Phosphatase Lactate Dehydrogenase Troponin T C-Reactive Protein Total Protein Albumin LDL Cholesterol Direct Urine Creatinine Urine Total Protein Salicylates Acetaminophen Crossmatch 11/10/21 11/10/21 11/10/21 02:00 04:17 04:17 WBC 24.5 H RBC 2.75 L Hgb 7.5 L Hct 22.9 L MCH 27 L RDW Plt Count Lymph % (Auto) [place] % (Auto) Lymph # (Auto) [place] # (Auto) Seg Neutrophils % Seg Neuts % (Manual) Lymphocytes % (Manual) Nucleated RBC % Seg Neutrophils # Seg Neutrophils # Man Monocytes # (Manual) PT INR APTT D-Dimer Heparin Anti-Xa Level 0.26 L ABG pH ABG pO2 ABG HCO3 ABG O2 Saturation ABG Base Excess ABG Hemoglobin Oxyhemoglobin Sodium Potassium 2.9 L* Chloride Carbon Dioxide 35 H BUN 48 H Creatinine Glucose 212 H POC Glucose Hemoglobin A1c Lactic Acid Calcium 8.1 L Phosphorus Magnesium Ferritin AST ALT Alkaline Phosphatase Lactate Dehydrogenase Troponin T C-Reactive Protein Total Protein Albumin LDL Cholesterol Direct Urine Creatinine Urine Total Protein Salicylates Acetaminophen Crossmatch 11/10/21 11/10/21 11/10/21 05:01 08:39 11:03 WBC RBC Hgb Hct MCH RDW Plt Count Lymph % (Auto) [place] % (Auto) Lymph # (Auto) [place] # (Auto) Seg Neutrophils % Seg Neuts % (Manual) Lymphocytes % (Manual) Nucleated RBC % Seg Neutrophils # Seg Neutrophils # Man Monocytes # (Manual) PT INR APTT D-Dimer Heparin Anti-Xa Level 0.12 L ABG pH ABG pO2 ABG HCO3 ABG O2 Saturation ABG Base Excess ABG Hemoglobin Oxyhemoglobin Sodium Potassium Chloride Carbon Dioxide BUN Creatinine Glucose POC Glucose 203 H 152 H Hemoglobin A1c Lactic Acid Calcium Phosphorus Magnesium Ferritin AST ALT Alkaline Phosphatase Lactate Dehydrogenase Troponin T C-Reactive Protein Total Protein Albumin LDL Cholesterol Direct Urine Creatinine Urine Total Protein Salicylates Acetaminophen Crossmatch 11/10/21 11/10/21 11/10/21 12:45 15:43 21:05 WBC RBC Hgb Hct MCH RDW Plt Count Lymph % (Auto) [place] % (Auto) Lymph # (Auto) [place] # (Auto) Seg Neutrophils % Seg Neuts % (Manual) Lymphocytes % (Manual) Nucleated RBC % Seg Neutrophils # Seg Neutrophils # Man Monocytes # (Manual) PT INR APTT D-Dimer Heparin Anti-Xa Level ABG pH ABG pO2 ABG HCO3 ABG O2 Saturation ABG Base Excess ABG Hemoglobin Oxyhemoglobin Sodium 146 H Potassium 3.3 L Chloride Carbon Dioxide 31 H BUN 43 H Creatinine Glucose 155 H POC Glucose 139 H 139 H Hemoglobin A1c Lactic Acid Calcium 8.3 L Phosphorus Magnesium Ferritin AST ALT Alkaline Phosphatase Lactate Dehydrogenase Troponin T C-Reactive Protein Total Protein Albumin LDL Cholesterol Direct Urine Creatinine Urine Total Protein Salicylates Acetaminophen Crossmatch 11/10/21 11/11/21 11/11/21 23:25 03:49 03:49 WBC 22.1 H RBC 2.69 L Hgb 7.2 L Hct 22.7 L MCH 27 L RDW Plt Count Lymph % (Auto) [place] % (Auto) Lymph # (Auto) [place] # (Auto) Seg Neutrophils % Seg Neuts % (Manual) Lymphocytes % (Manual) Nucleated RBC % Seg Neutrophils # Seg Neutrophils # Man Monocytes # (Manual) PT INR APTT D-Dimer Heparin Anti-Xa Level ABG pH ABG pO2 ABG HCO3 ABG O2 Saturation ABG Base Excess ABG Hemoglobin Oxyhemoglobin Sodium Potassium Chloride Carbon Dioxide 32 H BUN 44 H Creatinine 1.3 H Glucose 173 H POC Glucose 146 H Hemoglobin A1c Lactic Acid Calcium Phosphorus Magnesium Ferritin AST ALT Alkaline Phosphatase Lactate Dehydrogenase Troponin T C-Reactive Protein Total Protein Albumin LDL Cholesterol Direct Urine Creatinine Urine Total Protein Salicylates Acetaminophen Crossmatch 11/11/21 11/11/21 11/11/21 05:03 10:50 11:32 WBC RBC Hgb Hct MCH RDW Plt Count Lymph % (Auto) [place] % (Auto) Lymph # (Auto) [place] # (Auto) Seg Neutrophils % Seg Neuts % (Manual) Lymphocytes % (Manual) Nucleated RBC % Seg Neutrophils # Seg Neutrophils # Man Monocytes # (Manual) PT INR APTT D-Dimer Heparin Anti-Xa Level ABG pH ABG pO2 ABG HCO3 ABG O2 Saturation ABG Base Excess ABG Hemoglobin Oxyhemoglobin Sodium Potassium Chloride Carbon Dioxide BUN Creatinine Glucose POC Glucose 152 H 129 H 133 H Hemoglobin A1c Lactic Acid Calcium Phosphorus Magnesium Ferritin AST ALT Alkaline Phosphatase Lactate Dehydrogenase Troponin T C-Reactive Protein Total Protein Albumin LDL Cholesterol Direct Urine Creatinine Urine Total Protein Salicylates Acetaminophen Crossmatch 11/11/21 11/11/21 11/11/21 13:53 16:31 17:13 WBC RBC Hgb Hct MCH RDW Plt Count Lymph % (Auto) [place] % (Auto) Lymph # (Auto) [place] # (Auto) Seg Neutrophils % Seg Neuts % (Manual) Lymphocytes % (Manual) Nucleated RBC % Seg Neutrophils # Seg Neutrophils # Man Monocytes # (Manual) PT INR APTT D-Dimer Heparin Anti-Xa Level ABG pH 7.475 H ABG pO2 64.1 L ABG HCO3 32.4 H ABG O2 Saturation ABG Base Excess 8.0 H ABG Hemoglobin 7.6 L Oxyhemoglobin 94.0 L Sodium Potassium Chloride Carbon Dioxide BUN Creatinine Glucose POC Glucose 116 H 125 H Hemoglobin A1c Lactic Acid Calcium Phosphorus Magnesium Ferritin AST ALT Alkaline Phosphatase Lactate Dehydrogenase Troponin T C-Reactive Protein Total Protein Albumin LDL Cholesterol Direct Urine Creatinine Urine Total Protein Salicylates Acetaminophen Crossmatch 11/11/21 11/11/21 11/12/21 20:40 23:35 03:30 WBC 17.7 H RBC 2.37 L Hgb 6.3 L Hct 20.0 L MCH 27 L RDW 15.5 H Plt Count Lymph % (Auto) [place] % (Auto) Lymph # (Auto) [place] # (Auto) Seg Neutrophils % Seg Neuts % (Manual) Lymphocytes % (Manual) Nucleated RBC % Seg Neutrophils # Seg Neutrophils # Man Monocytes # (Manual) PT INR APTT D-Dimer Heparin Anti-Xa Level 0.26 L ABG pH ABG pO2 ABG HCO3 ABG O2 Saturation ABG Base Excess ABG Hemoglobin Oxyhemoglobin Sodium Potassium Chloride Carbon Dioxide BUN Creatinine Glucose POC Glucose 118 H Hemoglobin A1c Lactic Acid Calcium Phosphorus Magnesium Ferritin AST ALT Alkaline Phosphatase Lactate Dehydrogenase Troponin T C-Reactive Protein Total Protein Albumin LDL Cholesterol Direct Urine Creatinine Urine Total Protein Salicylates Acetaminophen Crossmatch 11/12/21 11/12/21 11/12/21 03:30 04:15 11:53 WBC RBC Hgb Hct MCH RDW Plt Count Lymph % (Auto) [place] % (Auto) Lymph # (Auto) [place] # (Auto) Seg Neutrophils % Seg Neuts % (Manual) Lymphocytes % (Manual) Nucleated RBC % Seg Neutrophils # Seg Neutrophils # Man Monocytes # (Manual) PT INR APTT D-Dimer Heparin Anti-Xa Level ABG pH ABG pO2 ABG HCO3 ABG O2 Saturation ABG Base Excess ABG Hemoglobin Oxyhemoglobin Sodium Potassium Chloride Carbon Dioxide 33 H BUN 38 H Creatinine 1.3 H Glucose 102 H POC Glucose 62 L Hemoglobin A1c Lactic Acid Calcium 8.2 L Phosphorus Magnesium Ferritin AST ALT Alkaline Phosphatase Lactate Dehydrogenase Troponin T C-Reactive Protein Total Protein Albumin LDL Cholesterol Direct Urine Creatinine Urine Total Protein Salicylates Acetaminophen Crossmatch See Detail 11/12/21 11/12/21 11/12/21 17:20 19:14 23:11 WBC RBC Hgb 6.2 L Hct 19.5 L* MCH RDW Plt Count Lymph % (Auto) [place] % (Auto) Lymph # (Auto) [place] # (Auto) Seg Neutrophils % Seg Neuts % (Manual) Lymphocytes % (Manual) Nucleated RBC % Seg Neutrophils # Seg Neutrophils # Man Monocytes # (Manual) PT INR APTT D-Dimer Heparin Anti-Xa Level ABG pH ABG pO2 ABG HCO3 ABG O2 Saturation ABG Base Excess ABG Hemoglobin Oxyhemoglobin Sodium Potassium Chloride Carbon Dioxide BUN Creatinine Glucose POC Glucose 115 H 131 H Hemoglobin A1c Lactic Acid Calcium Phosphorus Magnesium Ferritin AST ALT Alkaline Phosphatase Lactate Dehydrogenase Troponin T C-Reactive Protein Total Protein Albumin LDL Cholesterol Direct Urine Creatinine Urine Total Protein Salicylates Acetaminophen Crossmatch 11/13/21 11/13/21 11/13/21 00:13 04:17 04:17 WBC 23.8 H RBC 2.84 L Hgb 7.4 L 7.8 L Hct 23.3 L 24.9 L MCH 27 L RDW 15.4 H Plt Count Lymph % (Auto) [place] % (Auto) Lymph # (Auto) [place] # (Auto) Seg Neutrophils % Seg Neuts % (Manual) Lymphocytes % (Manual) Nucleated RBC % Seg Neutrophils # Seg Neutrophils # Man Monocytes # (Manual) PT INR APTT D-Dimer Heparin Anti-Xa Level ABG pH ABG pO2 ABG HCO3 ABG O2 Saturation ABG Base Excess ABG Hemoglobin Oxyhemoglobin Sodium 146 H Potassium Chloride Carbon Dioxide BUN 44 H Creatinine 1.6 H Glucose 144 H POC Glucose Hemoglobin A1c Lactic Acid Calcium 7.9 L Phosphorus 5.10 H D Magnesium Ferritin AST ALT Alkaline Phosphatase Lactate Dehydrogenase Troponin T C-Reactive Protein Total Protein Albumin LDL Cholesterol Direct Urine Creatinine Urine Total Protein Salicylates Acetaminophen Crossmatch 11/13/21 11/13/21 11/13/21 05:52 10:54 15:57 WBC RBC Hgb Hct MCH RDW Plt Count Lymph % (Auto) [place] % (Auto) Lymph # (Auto) [place] # (Auto) Seg Neutrophils % Seg Neuts % (Manual) Lymphocytes % (Manual) Nucleated RBC % Seg Neutrophils # Seg Neutrophils # Man Monocytes # (Manual) PT INR APTT D-Dimer Heparin Anti-Xa Level ABG pH ABG pO2 ABG HCO3 ABG O2 Saturation ABG Base Excess ABG Hemoglobin Oxyhemoglobin Sodium Potassium Chloride Carbon Dioxide BUN Creatinine Glucose POC Glucose 123 H 147 H 207 H Hemoglobin A1c Lactic Acid Calcium Phosphorus Magnesium Ferritin AST ALT Alkaline Phosphatase Lactate Dehydrogenase Troponin T C-Reactive Protein Total Protein Albumin LDL Cholesterol Direct Urine Creatinine Urine Total Protein Salicylates Acetaminophen Crossmatch 11/13/21 11/13/21 11/14/21 16:01 23:18 04:55 WBC 23.9 H RBC 2.86 L Hgb 6.5 L 8.3 L Hct 20.3 L 24.5 L MCH RDW Plt Count Lymph % (Auto) [place] % (Auto) Lymph # (Auto) [place] # (Auto) Seg Neutrophils % Seg Neuts % (Manual) Lymphocytes % (Manual) Nucleated RBC % Seg Neutrophils # Seg Neutrophils # Man Monocytes # (Manual) PT INR APTT D-Dimer Heparin Anti-Xa Level ABG pH ABG pO2 ABG HCO3 ABG O2 Saturation ABG Base Excess ABG Hemoglobin Oxyhemoglobin Sodium Potassium Chloride Carbon Dioxide BUN Creatinine Glucose POC Glucose 209 H Hemoglobin A1c Lactic Acid Calcium Phosphorus Magnesium Ferritin AST ALT Alkaline Phosphatase Lactate Dehydrogenase Troponin T C-Reactive Protein Total Protein Albumin LDL Cholesterol Direct Urine Creatinine Urine Total Protein Salicylates Acetaminophen Crossmatch 11/14/21 11/14/21 11/14/21 04:55 05:09 11:35 WBC RBC Hgb Hct MCH RDW Plt Count Lymph % (Auto) [place] % (Auto) Lymph # (Auto) [place] # (Auto) Seg Neutrophils % Seg Neuts % (Manual) Lymphocytes % (Manual) Nucleated RBC % Seg Neutrophils # Seg Neutrophils # Man Monocytes # (Manual) PT INR APTT D-Dimer Heparin Anti-Xa Level ABG pH ABG pO2 ABG HCO3 ABG O2 Saturation ABG Base Excess ABG Hemoglobin Oxyhemoglobin Sodium 148 H Potassium Chloride 109.0 H Carbon Dioxide BUN 42 H Creatinine 1.6 H Glucose 184 H POC Glucose 169 H 154 H Hemoglobin A1c Lactic Acid Calcium 8.0 L Phosphorus Magnesium Ferritin AST ALT Alkaline Phosphatase Lactate Dehydrogenase Troponin T C-Reactive Protein Total Protein Albumin LDL Cholesterol Direct Urine Creatinine Urine Total Protein Salicylates Acetaminophen Crossmatch 11/14/21 11/14/21 11/15/21 16:57 23:11 04:36 WBC RBC Hgb Hct MCH RDW Plt Count Lymph % (Auto) [place] % (Auto) Lymph # (Auto) [place] # (Auto) Seg Neutrophils % Seg Neuts % (Manual) Lymphocytes % (Manual) Nucleated RBC % Seg Neutrophils # Seg Neutrophils # Man Monocytes # (Manual) PT INR APTT D-Dimer Heparin Anti-Xa Level ABG pH ABG pO2 ABG HCO3 ABG O2 Saturation ABG Base Excess ABG Hemoglobin Oxyhemoglobin Sodium 151 H Potassium Chloride 111.2 H Carbon Dioxide BUN 36 H Creatinine 1.3 H Glucose 136 H POC Glucose 124 H 118 H Hemoglobin A1c Lactic Acid Calcium 8.1 L Phosphorus Magnesium Ferritin AST ALT Alkaline Phosphatase Lactate Dehydrogenase Troponin T C-Reactive Protein Total Protein Albumin LDL Cholesterol Direct Urine Creatinine Urine Total Protein Salicylates Acetaminophen Crossmatch 11/15/21 11/15/21 11/16/21 11:18 21:49 00:15 WBC RBC Hgb Hct MCH RDW Plt Count Lymph % (Auto) [place] % (Auto) Lymph # (Auto) [place] # (Auto) Seg Neutrophils % Seg Neuts % (Manual) Lymphocytes % (Manual) Nucleated RBC % Seg Neutrophils # Seg Neutrophils # Man Monocytes # (Manual) PT INR APTT D-Dimer Heparin Anti-Xa Level ABG pH ABG pO2 ABG HCO3 ABG O2 Saturation ABG Base Excess ABG Hemoglobin Oxyhemoglobin Sodium Potassium Chloride Carbon Dioxide BUN Creatinine Glucose POC Glucose 154 H 154 H 146 H Hemoglobin A1c Lactic Acid Calcium Phosphorus Magnesium Ferritin AST ALT Alkaline Phosphatase Lactate Dehydrogenase Troponin T C-Reactive Protein Total Protein Albumin LDL Cholesterol Direct Urine Creatinine Urine Total Protein Salicylates Acetaminophen Crossmatch 11/16/21 11/16/21 11/16/21 05:11 05:11 05:37 WBC 18.2 H RBC 2.92 L Hgb 8.3 L Hct 26.1 L MCH RDW 15.8 H Plt Count Lymph % (Auto) 6.3 L [place] % (Auto) 10.2 H Lymph # (Auto) [place] # (Auto) 1.9 H Seg Neutrophils % 81.7 H Seg Neuts % (Manual) Lymphocytes % (Manual) Nucleated RBC % Seg Neutrophils # 14.9 H Seg Neutrophils # Man Monocytes # (Manual) PT INR APTT D-Dimer Heparin Anti-Xa Level ABG pH ABG pO2 ABG HCO3 ABG O2 Saturation ABG Base Excess ABG Hemoglobin Oxyhemoglobin Sodium 146 H Potassium Chloride 108.0 H Carbon Dioxide BUN 25 H Creatinine Glucose 123 H POC Glucose 109 H Hemoglobin A1c Lactic Acid Calcium 7.8 L Phosphorus Magnesium Ferritin AST ALT Alkaline Phosphatase Lactate Dehydrogenase Troponin T C-Reactive Protein Total Protein Albumin LDL Cholesterol Direct Urine Creatinine Urine Total Protein Salicylates Acetaminophen Crossmatch 11/16/21 11/16/21 11/17/21 11:22 23:55 04:33 WBC RBC Hgb Hct MCH RDW Plt Count Lymph % (Auto) [place] % (Auto) Lymph # (Auto) [place] # (Auto) Seg Neutrophils % Seg Neuts % (Manual) Lymphocytes % (Manual) Nucleated RBC % Seg Neutrophils # Seg Neutrophils # Man Monocytes # (Manual) PT INR APTT D-Dimer Heparin Anti-Xa Level ABG pH ABG pO2 ABG HCO3 ABG O2 Saturation ABG Base Excess ABG Hemoglobin Oxyhemoglobin Sodium Potassium Chloride Carbon Dioxide BUN 20 H Creatinine Glucose POC Glucose 136 H 113 H Hemoglobin A1c Lactic Acid Calcium 7.5 L Phosphorus Magnesium Ferritin AST ALT Alkaline Phosphatase Lactate Dehydrogenase Troponin T C-Reactive Protein Total Protein Albumin LDL Cholesterol Direct Urine Creatinine Urine Total Protein Salicylates Acetaminophen Crossmatch 11/17/21 11/18/21 11/18/21 23:22 04:53 04:53 WBC 13.0 H RBC 2.99 L Hgb 8.5 L Hct 26.4 L MCH RDW Plt Count Lymph % (Auto) 9.5 L [place] % (Auto) 9.8 H Lymph # (Auto) [place] # (Auto) 1.3 H Seg Neutrophils % 78.3 H Seg Neuts % (Manual) Lymphocytes % (Manual) Nucleated RBC % Seg Neutrophils # 10.2 H Seg Neutrophils # Man Monocytes # (Manual) PT INR APTT D-Dimer Heparin Anti-Xa Level ABG pH ABG pO2 ABG HCO3 ABG O2 Saturation ABG Base Excess ABG Hemoglobin Oxyhemoglobin Sodium Potassium Chloride Carbon Dioxide BUN 18 H Creatinine Glucose 106 H POC Glucose 112 H Hemoglobin A1c Lactic Acid Calcium 8.1 L Phosphorus Magnesium Ferritin AST ALT Alkaline Phosphatase Lactate Dehydrogenase Troponin T C-Reactive Protein Total Protein Albumin LDL Cholesterol Direct Urine Creatinine Urine Total Protein Salicylates Acetaminophen Crossmatch 11/18/21 11/18/21 11/19/21 11:35 17:42 14:38 WBC RBC Hgb Hct MCH RDW Plt Count Lymph % (Auto) [place] % (Auto) Lymph # (Auto) [place] # (Auto) Seg Neutrophils % Seg Neuts % (Manual) Lymphocytes % (Manual) Nucleated RBC % Seg Neutrophils # Seg Neutrophils # Man Monocytes # (Manual) PT INR APTT D-Dimer Heparin Anti-Xa Level ABG pH ABG pO2 ABG HCO3 ABG O2 Saturation ABG Base Excess ABG Hemoglobin Oxyhemoglobin Sodium Potassium Chloride 97.5 L Carbon Dioxide 31 H BUN Creatinine Glucose 146 H POC Glucose 143 H 132 H Hemoglobin A1c Lactic Acid Calcium Phosphorus Magnesium 1.60 L Ferritin AST ALT Alkaline Phosphatase Lactate Dehydrogenase Troponin T C-Reactive Protein Total Protein Albumin LDL Cholesterol Direct Urine Creatinine Urine Total Protein Salicylates Acetaminophen Crossmatch 11/19/21 11/19/21 11/20/21 16:24 23:58 07:42 WBC RBC 3.01 L Hgb 8.6 L Hct 26.7 L MCH RDW 15.4 H Plt Count Lymph % (Auto) [place] % (Auto) Lymph # (Auto) [place] # (Auto) Seg Neutrophils % Seg Neuts % (Manual) Lymphocytes % (Manual) Nucleated RBC % Seg Neutrophils # Seg Neutrophils # Man Monocytes # (Manual) PT INR APTT D-Dimer Heparin Anti-Xa Level ABG pH ABG pO2 ABG HCO3 ABG O2 Saturation ABG Base Excess ABG Hemoglobin Oxyhemoglobin Sodium Potassium Chloride Carbon Dioxide BUN Creatinine Glucose POC Glucose 129 H 125 H Hemoglobin A1c Lactic Acid Calcium Phosphorus Magnesium Ferritin AST ALT Alkaline Phosphatase Lactate Dehydrogenase Troponin T C-Reactive Protein Total Protein Albumin LDL Cholesterol Direct Urine Creatinine Urine Total Protein Salicylates Acetaminophen Crossmatch 11/20/21 11/20/21 11/20/21 07:42 11:25 22:59 WBC RBC Hgb Hct MCH RDW Plt Count Lymph % (Auto) [place] % (Auto) Lymph # (Auto) [place] # (Auto) Seg Neutrophils % Seg Neuts % (Manual) Lymphocytes % (Manual) Nucleated RBC % Seg Neutrophils # Seg Neutrophils # Man Monocytes # (Manual) PT INR APTT D-Dimer Heparin Anti-Xa Level ABG pH ABG pO2 ABG HCO3 ABG O2 Saturation ABG Base Excess ABG Hemoglobin Oxyhemoglobin Sodium Potassium Chloride Carbon Dioxide 31 H BUN Creatinine Glucose POC Glucose 116 H 113 H Hemoglobin A1c Lactic Acid Calcium Phosphorus Magnesium Ferritin AST ALT Alkaline Phosphatase Lactate Dehydrogenase Troponin T C-Reactive Protein Total Protein Albumin LDL Cholesterol Direct Urine Creatinine Urine Total Protein Salicylates Acetaminophen Crossmatch 11/21/21 11/22/21 11/22/21 10:50 05:10 16:12 WBC RBC Hgb Hct MCH RDW Plt Count Lymph % (Auto) [place] % (Auto) Lymph # (Auto) [place] # (Auto) Seg Neutrophils % Seg Neuts % (Manual) Lymphocytes % (Manual) Nucleated RBC % Seg Neutrophils # Seg Neutrophils # Man Monocytes # (Manual) PT INR APTT D-Dimer Heparin Anti-Xa Level ABG pH ABG pO2 ABG HCO3 ABG O2 Saturation ABG Base Excess ABG Hemoglobin Oxyhemoglobin Sodium Potassium Chloride Carbon Dioxide 32 H BUN Creatinine Glucose POC Glucose 156 H 110 H Hemoglobin A1c Lactic Acid Calcium 8.1 L Phosphorus Magnesium Ferritin AST ALT Alkaline Phosphatase Lactate Dehydrogenase Troponin T C-Reactive Protein Total Protein Albumin LDL Cholesterol Direct Urine Creatinine Urine Total Protein Salicylates Acetaminophen Crossmatch 11/23/21 11/23/21 11/23/21 07:18 07:18 11:45 WBC RBC 3.23 L Hgb 9.1 L Hct 28.5 L MCH RDW 15.6 H Plt Count Lymph % (Auto) [place] % (Auto) Lymph # (Auto) [place] # (Auto) Seg Neutrophils % Seg Neuts % (Manual) Lymphocytes % (Manual) Nucleated RBC % Seg Neutrophils # Seg Neutrophils # Man Monocytes # (Manual) PT INR APTT D-Dimer Heparin Anti-Xa Level ABG pH ABG pO2 ABG HCO3 ABG O2 Saturation ABG Base Excess ABG Hemoglobin Oxyhemoglobin Sodium Potassium 3.3 L Chloride 96.8 L Carbon Dioxide 32 H BUN Creatinine Glucose POC Glucose 140 H Hemoglobin A1c Lactic Acid Calcium Phosphorus Magnesium Ferritin AST ALT Alkaline Phosphatase Lactate Dehydrogenase Troponin T C-Reactive Protein Total Protein Albumin LDL Cholesterol Direct Urine Creatinine Urine Total Protein Salicylates Acetaminophen Crossmatch Allied health notes reviewed: nursing
[2021-11-24] MEDS: INSULIN LISPRO 100 UNIT/ML SUB-Q SCH ×4 (00:12→17:38)
[2021-11-24] MEDS: hydrALAZINE 25 MG TAB PO SCH ×3 (05:21→21:52)
[2021-11-24 08:27] LABS: Basophils # (Auto) 0.1 K/mm3 (0.0-0.1); Basophils % (Auto) 0.8 % (0.0-1.8); Eosinophils # (Auto) 0.4 K/mm3 (0.0-0.4); Eosinophils % (Auto) 3.7 % (0.0-4.3); Hematocrit 27.2 % (30.3-42.9); Hemoglobin 9.3 gm/dl (10.1-14.3); Lymphocytes # (Auto) 1.1 K/mm3 (1.2-5.4); Lymphocytes % (Auto) 10.3 % (13.4-35.0); Mean Corpuscular HGB Conc 34 % (30-34); Mean Corpuscular Volume 87 fl (79-97); Monocytes # (Auto) 1.1 K/mm3 (0.0-0.8); Platelet Count 255 K/mm3 (140-440); Red Blood Count 3.12 M/mm3 (3.65-5.03)
[2021-11-24 08:53] LABS: BUN/Creatinine Ratio 10; Blood Urea Nitrogen 10 mg/dL (7-17); Calcium 8.7 mg/dL (8.4-10.2); Hemolysis Index 0
[2021-11-24] MEDS: FUROSEMIDE 20 MG/2 ML INJ IV SCH ×2 (10:01→21:52)
[2021-11-24] MEDS: FAMOTIDINE 10 MG TAB PO SCH ×2 (10:01→21:53)
[2021-11-24] MEDS: LOSARTAN 25 MG TAB PO SCH ×2 (10:01→21:52)
[2021-11-24] MEDS: DOCUSATE SODIUM 100 MG CAP PO SCH ×2 (10:02→21:53)
[2021-11-24] MEDS: SENNOSIDES/DOCUSATE SODIUM 8.6/50 MG TAB PO SCH ×2 (10:02→21:53)
[2021-11-24] MEDS: SPIRONOLACTONE 25 MG TAB PO SCH (10:02)
[2021-11-24] MEDS: METOPROLOL TARTRATE 100 MG TAB PO SCH ×2 (10:03→21:53)
[2021-11-24] MEDS: ACETAMINOPHEN 325 MG TAB PO PRN (10:08)
--- NOTE | 2021-11-24 11:01 | Progress Note ---
Assessment and Plan Assessment and plan: 66 YO Female with Obesity was attending [facility] services when the patient collapsed and lost consciousness. Witnesses began CPR. EMS was notified and upon arrival the patient was found to be in distress without perfusing cardiac rhythm. Patient initiated on ACLS protocol and subsequently intubated in the field and transported to ED. The patient regained spontaneous circulation during transport. She was found to have acute hypoxemic respiratory failure, septic shock suspected secondary to aspiration pneumonia, metabolic acidosis, toxic metabolic encephalopathy, shock liver, and cardiac arrest with return of perfusing cardiac rhythm after initiation of ACLS protocol. Patient initiated on sepsis protocol as well as pneumonia protocol. Patient admitted to ICU. Patient improved, extubated on 11/11 and transferred to floor on 11/19. s/p cardiac arrest, collapse at [facility], HFrEF, shock/hypotension resolved Atrial fibrillation/atrial flutter -Cardiac arrest and collapse at [facility] with ROSC -Cardiology consulted, appreciate recommendations - S/p Cardizem gtt- d/c due to low EF; now on PO Amio -s/p vasopressor support with levophed -Echocardiogram shows left ventricular systolic function severely decreased, LVEF 25 to 30%, no pericardial effusion -proBNP 5622 -Continue Lasix 20 mg twice daily, BB, spironolactone, losartan -No significant volume overload clinically Acute hypoxic respiratory failure, right pneumothorax, Angioedema (resolved), pulmonary edema -[facility] consulted, appreciate recommendations -Intubated on 10/29 and extubated on 11/11 -Bipap q HS and prn, at high risk for KOLBY with morbid obesity -NC during day -s/p right chest tube for pneumothorax -s/p steroids for angioedema -On Lasix for pulmonary edema. Transaminitis likely shocked liver - resolved Acute kidney injury likely secondary to vasomotor nephropathy, hypernatremia -Nephrology consulted, appreciate recommendations -Krishna replaced 11/05 urinary retention -FeNa 0.05 indicating pre-renal -SIERRA and hyponatremia resolved. Creatinine 1.0 on Lasix IV Shock cardiogenicsuspected sepsis -Fever was as high as 102 with a leukocytosis Blood, urine and sputum cultures negative -COVID-19 PCR negative -S/p empiric antibiotic therapy for possible pneumonia with Rocephin and azithromycin () -S/p Levophed gtt for hypotension -Fever and leukocytosis resolved -Monitor WBC and temperature curve Acute Metabolic encephalopathy, agitation/anxiety -Etiology likely from a cardiac arrest, shock and cerebral hypoperfusion CT head no acute focal parenchymal lesion in the brain -Neurology consulted, appreciate recommendations -EEG and MRI noted, Neuro recommend to cut down on sedation as possible Mental status significantly improved, currently fairly alert and oriented. Answers appropriately. Acute DVT in the left posterior tibial vein and bilateral peroneal veins, Anemia, retroperitoneal bleed -D-dimer greater than 10,000 -CTA chest with no evidence of PE -Bilateral lower extremity ultrasound positive for DVT -Heparin gtt on hold d/t anemia, received PRBC x4 -vasuclar surgery consulted, appreciate recommendations -recommended multiphasic CT angio of the abdomen and pelvis with and without contrast if H/H drops and did not recommend IVC filter at this time as the DVTs are infrapopliteal and recommends a follow-up DVT study weekly for 2 weeks. Repeat venous duplex ultrasound on 11/21 showed progression of left peroneal DVT extending into popliteal vein. Vascular surgery completed IVC filter placement on 11/22. -Trend CBC -SCDs to BLE while in bed -Transfuse hemoglobin less than 7 -Monitor for signs of bleeding -Hemoglobin stable, 8.6 Hypertension, not able be controlled Increase losartan 200 mg daily and add hydralazine as needed. Hyperglycemia ,resolved) -Avoid hypoglycemia -Hbg A1C 6.7 -SSI and lantus q hs (titrate as needed) -Accu-Cheks q. 6 Morbid obesity High risk for KOLBY On nightly BiPAP Deconditioning PT/OT Hospital Course to Date: 10/30: Intubated and sedated, on fentanyl gtt. Open eyes spontaneously but does not follow any commands. On vasopressors, titrate as tolerated for MAP above 65. Patient febrile overnight, continue empiric IV Abx, culture data and COVID PCR pending. Patient is also s/p CT placement due to spontaneous pneumothorax. 2D echo is pending and Cardiology is consulted. 10/31: Patient remains intubated and following commands. Levophed drip stopped and potassium repleted. Patient started on tube feeding. Remains in soft bilateral restraints. 11/01: RN noted ST changes on BSM and 12 lead EKG obtained which showed ST. Given Ativan 1mg for agitation as she is maxed on fentanyl drip and IV push fentanyl did not seem to help. Patient was started on CPAP this morning by RT but remained on fentanyl drip and was having periods of apnea. Plan was to retry CPAP again in the p.m. with sedation off. 11/02: Rate increased r/t hypercapnea on ABG, sedation reduced. Given kionex for hyperkalemia and was started on levophed overnight for hypotension. 11/03: Overnight patient had tachycardia and was given Cardizem and Lopressor. Lopressor was repeated in the a.m. due to tachycardia. Patient will be started on amiodarone with a bolus per cardiology. Patient started on normal saline per liter per [facility] and steroids for angioedema. Noted to have bright red blood when suctioned from oh ETT. Remains on heparin drip as H/H is stable for now. Will reevaluate. Fentanyl drip was restarted last night due to agitation. Dr. Flores updated family today 11/04: Patient was sedated on fentanyl however off sedation is able to follow commands, a.m. labs completed in the p.m. and show hyperkalemia with increased renal function studies. Nephrology, neurology consulted by [facility]. Given Kayexalate, insulin and D50 for hyperkalemia. Patient remains on amiodarone. 11/05: Patient needed to be sedated on fentanyl again to today. overnight krishna was replaced. Hyperkalemia->given kionex 60 for 5.6. Repeat K 6-> Dr. Grant informed and requested bumex, kionex, insulin, d50, calcium gluconate and sodium bicarb with repeat BMP in 2 hours which were placed. HR remains elevated. 11/06: Patient remained in atrial fibrillation/atrial flutter with heart rate in the 150s despite being on amnio drip and was given amnio bolus, Cardizem bolus and started on Cardizem drip by cardiology. Patient is on beta-blockers p.o. scheduled and to feedings changed to Nepro. Kayexalate was given in the morning by nephrology due to hyperkalemia. 11/07: Patient is only responsive to mild stimuli, precedex added in an attempt to wean off fentanyl gtt to better assess her mental status. Neurology also on consult, pending MRI and EEG. Patient remains in Aflutter this am, HR in the 80 to 90s, still on amiodarone and heparin gtt. 11/08: Fentanyl gtt is off, only on precedex gtt. Patient is still not following any commands. MRI brain and EEG completed. Neuro recommendations noted, sedatives agents decreased. FWF added for hypernatremia and low K repleted, repe at labs ordered. Placed a call and spoke with patient's daughter, Eva Brown . She was updated on patient's conditions and status. All questions and concerns were voiced at this time. 11/09: Patient is awake and alert this am, following commands and appropriate. Remains on precedex gtt, plan for possible PST today. Hypertensive overnight, meds adjusted by Cardio and PRN Hydralazine added for SBP greater than 160. CT dislodged overnight, CXR is stable with no significant change. F/U CXR in the am. Patient's daughter, Eva Brown, visited with patient. She was updated on patient's status and goal of care for today. All questions and concerns were voiced at this time. 11/10: Mentation remains intact, still on precedex gtt. This am CXR noted still with fluid overload s/p X1 dose of IV lasix, good response from IV lasix overnight. Hypernatremia improved, D5W d/dayday. Still with persistent hypokalemia, continue electrolytes replacement and frequent lab check. Daily IV lasix and aldactone added by Cardio. Patient is also with persistent low grade fevers overnight, leukocytosis with mild improvement this am. Will get a repeat sputum culture, hold off on IV abx for now. Consider ID consult if fevers and leukocytosis persist. Patient tolerated PST X4hrs yesterday. PST again today, plan to wean to extubate if tolerated. 11/11: IAM overnight. Off precedex gtt and tolerated PST this am. Plan to wean to extubate today. Additional IV lasix given, plan to keep patient at a net negative balance for better lung compliance. F/U CXR in the am. K improved this am, repeat BMP this afternoon since diuresing. Remains with low grade fevers, leukocytosis downtrending, will continue to monitor. Speech/PT/OT ordered 11/12: S/p extubation, now stable on 3L NC. This am CXR noted with no significant changes, lasix changed to IV X4days BID. Drop in H&H this am, and Lt. flank ecchymosis noted. Heparin gtt on hold for now and orders placed for 1 unit of PRBCs and Ct Abd/Pelvis w/o con to r/o retroperitoneal bleed. Pending speech swallow eval, keep patient NPO for now. Patient is stable for IMCU status 11/13: Patient with increased WOB and tachycardia this am, patient was placed on Bipap and precedex gtt was resumed. CXR with mild improvement. CT Abd/Pelvis also reviewed large hematomas noted at the Lt. retroperitoneum and left posterior lateral abdominal wall. Heparin gtt is already on hold, patient is hemodynamically stable. Vascular Surgery consulted for possible IVC filter eval. Patient s/p 2units of PRBCs, will continue to trend H&H and transfuse if hbg is less than 7. Worsening renal function this am, IF diuretic on hold for now. Patient is also febrile with spike in wbcs most likely reactive to bleed, will panculture and hold off on IV Abx for now. Patient also failed speech bedside swallow eval yesterday, NGT in placed plan to resume enteral nutrition 11/14: Patient had bilateral lower extremity Doppler ultrasound and vascular surgery has recommended multiphasic CT angio of the abdomen and pelvis with and without contrast if H/H drops and does not recommend IVC filter at this time as the DVTs are infrapopliteal and recommends a DVT study weekly for 2 weeks. FWF 250 q4 ml per nephro. Started on as needed Xanax and p.o. amiodarone. She did not pass her ST evaluation today. Will be transferred to [facility]. 11/15: Resting comfortably on encounter. Speech cleared for pureed diet. Remains on 3l satting 98 % on bedside encounter. Does not appear to be in respiratory distress. Will continue to hold AC, No ivc filter planned at this time. qweekly doppler to monitor for migration of DVT per vascular. If demonstrated, will consider IVC filter. CBC ordered for tomorrow, will continue monitoring in light of retroperitoneal hematoma. FWF increased by nephrology to 350cc q4hr d/t hypernatremia. UOP/renal function both improved. D/w cardiology, will continue amiodorone an additional 24hrs. Plan to change dosing of metoprolol. Continue to wean off of precedex. Continue xanax scheduled for anxiety. physical therapy recs noted, fernanda / ltac will discuss with CM. Continue IMCU monitoring. 11/16: Pulmonary congestion this AM. CXR ordered. Lasix 40 mg IV x 1 order this AM. Will monitor for 24 hrs. potential downgrade to medical floor tomorrow. 11/17: Persisting pulmonary congestion, was on bipap overnight into this AM. Will order additional lasix 40 mg IV x 2. CXR ordered for AM. Possible downgrade to floor tomorrow. Anticipate d/c sunday. 11/18: Patient seen and examined, continue weaning, will continue diuresis BID, discussed with daughter. 11/19: Patient seen and examined this morning doing well no acute distress noted. Lasix was increased to twice daily to 20 mg IV. Clinically improving. Patient will be transferred to telemetry today can be switched to Lasix p.o. twice daily in a.m. She has her weekly Doppler of lower extremity tomorrow vascular is following for this. She was taken off anticoagulation secondary to retroperitoneal bleed., The anticoagulation was started initially for atrial fibrillation and an infrapopliteal DVT. During her hospital stay she had a prolonged ventilator management and was successfully weaned off. She also received a total of 4 units of packed red blood cell. Hemoglobin has remained stable. Anticipate discharge in next 48 hours if continues to clinically stay stable. : Transferred from ICU on 11/19. Progressive improving. Currently awake and oriented. O2 weaned to 4 L. Hemodynamically stable. BP control being optimized. MiraLAX for constipation. Hemoglobin stable on the heparin infusion, being monitored closely with history of retroperitoneal bleed. 11/21: Patient remains mostly bedridden. She is awake and oriented on 2 L of O2. Repeat ultrasound showed extension of left peroneal DVT into popliteal vein. Heparin was discontinued for significant retroperitoneal bleed and off anticoagulation since. Vascular surgery plan for placement of IVC filter tomorrow. Patient is chest pains, palpitations, hemoptysis. She has some cough. Left lower extremity pain likely from DVT better today. Discussed with the patient, nursing staff and vascular surgery. 11/22: The infrapopliteal vein thrombosis has propagated to the left popliteal vein. Vascular surgery to perform IVC filter placement today. 11/23: Vascular surgery placed IVC filter yesterday. Continue metoprolol 100 mg p.o. twice daily, Aldactone 25 mg p.o. daily and losartan 25 mg p.o. daily. Patient still requiring BiPAP (IPAP18, EPAP8) with FiO2 of 30%. Continue to wean oxygen per pulmonary recommendations. Nurse reports patient is having vaginal bleeding. We will check serial CBC and pelvic ultrasound 3: I discussed with cardiology yesterday the need for a LifeVest. LifeVest is ordered and pending. Patient is s/p IVC filter placement. Continue metoprolol 100 mg p.o. twice daily, Aldactone 25 mg p.o. daily and losartan 25 mg p.o. da amy. Patient still requiring BiPAP (IPAP18, EPAP8) with FiO2 of 30%. Continue to wean oxygen per pulmonary recommendations. No further reports of vaginal bleeding. Pelvic ultrasound negative History Interval history: No new issues overnight. Hospitalist Physical - Constitutional Vitals: Temp Pulse Resp BP Pulse Ox 98.6 F 67 20 131/76 98 11/24/21 03:55 11/24/21 05:21 11/24/21 03:59 11/24/21 05:21 11/24/21 06:28 General appearance: Present: no acute distress, obese (Morbidly obese) - EENT Eyes: Present: PERRL, EOM intact ENT: hearing intact, clear oral mucosa, dentition normal - Neck Neck: Present: supple, normal ROM - Respiratory Respiratory effort: normal Respiratory: bilateral: CTA - Cardiovascular Rhythm: regular Heart Sounds: Present: S1 & S2. Absent: gallop, rub - Extremities Extremities: no ischemia, No edema, Full ROM - Abdominal General gastrointestinal: soft, non-tender, non-distended, normal bowel sounds - Integumentary Integumentary: Present: clear, warm, dry - Neurologic Neurologic: CNII-XII intact, moves all extremities HEART Score - HEART Score Troponin: Troponin T 1.150 ng/mL (0.00-0.029) H* D 10/29/21 22:34 Results - Labs CBC & Chem 7: 11/24/21 07:19 11/24/21 07:19 Labs: Laboratory Last Values WBC 10.6 K/mm3 (4.5-11.0) 11/24/21 07:19 RBC 3.12 M/mm3 (3.65-5.03) L 11/24/21 07:19 Hgb 9.3 gm/dl (10.1-14.3) L 11/24/21 07:19 Hct 27.2 % (30.3-42.9) L 11/24/21 07:19 MCV 87 fl (79-97) 11/24/21 07:19 MCH 30 pg (28-32) 11/24/21 07:19 MCHC 34 % (30-34) 11/24/21 07:19 RDW 16.0 % (13.2-15.2) H 11/24/21 07:19 Plt Count 255 K/mm3 (140-440) 11/24/21 07:19 Lymph % (Auto) 10.3 % (13.4-35.0) L 11/24/21 07:19 [place] % (Auto) 10.0 % (0.0-7.3) H 11/24/21 07:19 Eos % (Auto) 3.7 % (0.0-4.3) 11/24/21 07:19 Baso % (Auto) 0.8 % (0.0-1.8) 11/24/21 07:19 Lymph # (Auto) 1.1 K/mm3 (1.2-5.4) L 11/24/21 07:19 [place] # (Auto) 1.1 K/mm3 (0.0-0.8) H 11/24/21 07:19 Eos # (Auto) 0.4 K/mm3 (0.0-0.4) 11/24/21 07:19 Baso # (Auto) 0.1 K/mm3 (0.0-0.1) 11/24/21 07:19 Add Manual Diff Complete 11/07/21 06:30 Total Counted 100 11/07/21 06:30 Seg Neutrophils % 75.2 % (40.0-70.0) H 11/24/21 07:19 Seg Neuts % (Manual) 77.0 % (40.0-70.0) H 11/07/21 06:30 Band Neutrophils % 1.0 % 11/07/21 06:30 Lymphocytes % (Manual) 11.0 % (13.4-35.0) L 11/07/21 06:30 Reactive Lymphs % (Man) 3.0 % 11/07/21 06:30 Monocytes % (Manual) 2.0 % (0.0-7.3) 11/07/21 06:30 Eosinophils % (Manual) 0 % (0.0-4.3) 11/07/21 06:30 Basophils % (Manual) 0 % (0.0-1.8) 11/07/21 06:30 Metamyelocytes % 1.0 % 11/07/21 06:30 Myelocytes % 5.0 % 11/07/21 06:30 Promyelocytes % 0 % 11/07/21 06:30 Blast Cells % 0 % 11/07/21 06:30 Nucleated RBC % 2.0 % (0.0-0.9) H 11/07/21 06:30 Seg Neutrophils # 7.9 K/mm3 (1.8-7.7) H 11/24/21 07:19 Seg Neutrophils # Man 12.3 K/mm3 (1.8-7.7) H 11/07/21 06:30 Band Neutrophils # 0.2 K/mm3 11/07/21 06:30 Lymphocytes # (Manual) 1.8 K/mm3 (1.2-5.4) 11/07/21 06:30 Abs React Lymphs (Man) 0.5 K/mm3 11/07/21 06:30 Monocytes # (Manual) 0.3 K/mm3 (0.0-0.8) 11/07/21 06:30 Eosinophils # (Manual) 0.0 K/mm3 (0.0-0.4) 11/07/21 06:30 Basophils # (Manual) 0.0 K/mm3 (0.0-0.1) 11/07/21 06:30 Metamyelocytes # 0.2 K/mm3 11/07/21 06:30 Myelocytes # 0.8 K/mm3 11/07/21 06:30 Promyelocytes # 0.0 K/mm3 11/07/21 06:30 Blast Cells # 0.0 K/mm3 11/07/21 06:30 WBC Morphology Not Reportable 11/07/21 06:30 Hypersegmented Neuts Not Reportable 11/07/21 06:30 Hyposegmented Neuts Not Reportable 11/07/21 06:30 Hypogranular Neuts Not Reportable 11/07/21 06:30 Smudge Cells Not Reportable 11/07/21 06:30 Toxic Granulation Not Reportable 11/07/21 06:30 Toxic Vacuolation Not Reportable 11/07/21 06:30 Dohle Bodies Not Reportable 11/07/21 06:30 Pelger-Huet Anomaly Not Reportable 11/07/21 06:30 Manny Rods Not Reportable 11/07/21 06:30 Platelet Estimate Consistent w auto 11/07/21 06:30 Clumped Platelets Not Reportable 11/07/21 06:30 Plt Clumps, EDTA Not Reportable 11/07/21 06:30 Large Platelets 1+ 11/07/21 06:30 Giant Platelets Not Reportable 11/07/21 06:30 Platelet Satelliting Not Reportable 11/07/21 06:30 Plt Morphology Comment Not Reportable 11/07/21 06:30 RBC Morphology Not Reportable 11/07/21 06:30 Dimorphic RBCs Not Reportable 11/07/21 06:30 Polychromasia Not Reportable 11/07/21 06:30 Hypochromasia 1+ 11/07/21 06:30 Poikilocytosis Not Reportable 11/07/21 06:30 Anisocytosis Not Reportable 11/07/21 06:30 Microcytosis Not Reportable 11/07/21 06:30 Macrocytosis Not Reportable 11/07/21 06:30 Spherocytes 1+ 11/07/21 06:30 Pappenheimer Bodies Not Reportable 11/07/21 06:30 Sickle Cells Not Reportable 11/07/21 06:30 Target Cells 1+ 11/07/21 06:30 Tear Drop Cells Not Reportable 11/07/21 06:30 Ovalocytes Not Reportable 11/07/21 06:30 Helmet Cells Not Reportable 11/07/21 06:30 Maradiaga-Artesian Bodies Not Reportable 11/07/21 06:30 [place] Rings Not Reportable 11/07/21 06:30 [place] Cells Not Reportable 11/07/21 06:30 Bite Cells Not Reportable 11/07/21 06:30 Crenated Cell Not Reportable 11/07/21 06:30 Elliptocytes Not Reportable 11/07/21 06:30 Acanthocytes (Spur) Not Reportable 11/07/21 06:30 Rouleaux Not Reportable 11/07/21 06:30 Hemoglobin C Crystals Not Reportable 11/07/21 06:30 Schistocytes Not Reportable 11/07/21 06:30 Malaria parasites Not Reportable 11/07/21 06:30 Magdy Bodies Not Reportable 11/07/21 06:30 Hem Pathologist Commnt No 11/07/21 06:30 PT 17.2 Sec. (12.2-14.9) H 10/30/21 16:30 INR 1.27 (0.87-1.13) H 10/30/21 16:30 APTT 44.4 Sec. (24.2-36.6) H 10/30/21 16:30 D-Dimer > 40837 ng/mlDDU (0-234) H 10/30/21 Unknown Heparin Anti-Xa Level 0.62 U.I./ml (0.3-0.7) 11/12/21 03:30 ABG pH 7.475 pH Units (7.350-7.450) H 11/11/21 13:53 ABG pCO2 45.0 mm Hg 11/11/21 13:53 ABG pO2 64.1 mm Hg (80.0-90.0) L 11/11/21 13:53 ABG HCO3 32.4 mmol/L (20.0-26.0) H 11/11/21 13:53 ABG O2 Saturation 96.3 % (95.0-99.0) 11/11/21 13:53 ABG O2 Content 10.1 (0.0-44) 11/11/21 13:53 ABG Base Excess 8.0 mmol/L (-2.0-3.0) H 11/11/21 13:53 ABG Hemoglobin 7.6 gm/dl (12.0-16.0) L 11/11/21 13:53 ABG Carboxyhemoglobin 1.8 % (0.0-5.0) 11/11/21 13:53 ABG Methemoglobin 0.5 % (0.0-1.5) 11/11/21 13:53 Oxyhemoglobin 94.0 % (95.0-99.0) L 11/11/21 13:53 FiO2 32 % 11/11/21 13:53 Sodium 138 mmol/L (137-145) 11/24/21 07:19 Potassium 3.2 mmol/L (3.6-5.0) L 11/24/21 07:19 Chloride 96.7 mmol/L (98-107) L 11/24/21 07:19 Carbon Dioxide 30 mmol/L (22-30) 11/24/21 07:19 Anion Gap 15 mmol/L 11/24/21 07:19 BUN 10 mg/dL (7-17) 11/24/21 07:19 Creatinine 1.0 mg/dL (0.6-1.2) 11/24/21 07:19 Estimated GFR > 60 ml/min 11/24/21 07:19 BUN/Creatinine Ratio 10 % 11/24/21 07:19 Glucose 125 mg/dL (65-100) H 11/24/21 07:19 POC Glucose 103 mg/dL (70-105) 11/24/21 06:07 Hemoglobin A1c 6.7 % (4-6) H 10/31/21 04:30 Lactic Acid 0.70 mmol/L (0.7-2.0) 10/31/21 15:45 Calcium 8.7 mg/dL (8.4-10.2) 11/24/21 07:19 Phosphorus 3.10 mg/dL (2.5-4.5) 11/19/21 14:38 Magnesium 1.60 mg/dL (1.7-2.3) L 11/19/21 14:38 Ferritin 208.4 ng/mL (10.0-200.0) H 10/30/21 Unknown Total Bilirubin < 0.20 mg/dL (0.1-1.2) 11/06/21 02:35 AST 21 units/L (5-40) 11/06/21 02:35 ALT 77 units/L (7-56) H 11/06/21 02:35 Alkaline Phosphatase 84 units/L (35-129) 11/06/21 02:35 Ammonia 31.0 umol/L (25-60) 10/29/21 15:10 Lactate Dehydrogenase 469 units/L (91-180) H 10/30/21 Unknown Troponin T 1.150 ng/mL (0.00-0.029) H* D 10/29/21 22:34 C-Reactive Protein 13.40 mg/dL (0.00-1.30) H 10/30/21 Unknown Total Protein 6.3 g/dL (6.3-8.2) 11/06/21 02:35 Albumin 3.0 g/dL (3.9-5) L 11/06/21 02:35 Albumin/Globulin Ratio 0.9 % 11/06/21 02:35 Triglycerides 68 mg/dL (2-149) 10/29/21 19:40 Cholesterol 98 mg/dL (50-199) 10/29/21 19:40 LDL Cholesterol Direct 43 mg/dL (50-130) L 10/29/21 19:40 HDL Cholesterol 50 mg/dL (40-59) 10/29/21 19:40 Cholesterol/HDL Ratio 1.96 % 10/29/21 19:40 Procalcitonin 61.95 ng/mL (<0.15) 10/30/21 Unknown TSH 3.080 mlU/mL (0.270-4.200) 10/29/21 15:10 Urine Color Yellow (Yellow) 11/13/21 08:30 Urine Turbidity Slightly-cloudy (Clear) 11/13/21 08:30 Urine pH 6.0 (5.0-7.0) 11/13/21 08:30 Ur Specific [place] 1.010 (1.003-1.030) 11/13/21 08:30 Urine Protein <15 mg/dl mg/dL (Negative) 11/13/21 08:30 Urine Glucose (UA) Neg mg/dL (Negative) 11/13/21 08:30 Urine Ketones Tr mg/dL (Negative) 11/13/21 08:30 Urine Blood Sm (Negative) 11/13/21 08:30 Urine Nitrite Neg (Negative) 11/13/21 08:30 Urine Bilirubin Neg (Negative) 11/13/21 08:30 Urine Urobilinogen < 2.0 mg/dL (<2.0) 11/13/21 08:30 Ur Leukocyte Esterase Neg (Negative) 11/13/21 08:30 Urine WBC (Auto) < 1.0 /HPF (0.0-6.0) 11/13/21 08:30 Urine RBC (Auto) < 1.0 /HPF (0.0-6.0) 11/13/21 08:30 U Epithel Cells (Auto) < 1.0 /HPF (0-13.0) 11/13/21 08:30 Urine Mucus Few /HPF 10/29/21 18:15 Urine Eosinophils None seen (None Seen) 11/04/21 Unknown Urine Creatinine 190.9 mg/dL (0.1-20.0) H 11/04/21 Unknown Protein/Creatinin Ratio 0.90 11/04/21 Unknown Urine Sodium 10 mmol/L 11/04/21 Unknown Urine Total Protein 172 mg/dL (5-11.8) H 11/04/21 Unknown Salicylates < 0.3 mg/dL (2.8-20.0) L 10/29/21 15:10 Urine Opiates Screen Negative 10/29/21 18:15 Urine Methadone Screen Negative 10/29/21 18:15 Acetaminophen 5.0 ug/mL (10.0-30.0) L 10/29/21 15:10 Ur Barbiturates Screen Negative 10/29/21 18:15 Ur Phencyclidine Scrn Negative 10/29/21 18:15 Ur Amphetamines Screen Negative 10/29/21 18:15 U Benzodiazepines Scrn Negative 10/29/21 18:15 Urine Cocaine Screen Negative 10/29/21 18:15 U Marijuana (THC) Screen Negative 10/29/21 18:15 Drugs of Abuse Note Disclamer 10/29/21 18:15 Plasma/Serum Alcohol < 0.01 % (0-0.07) 10/29/21 15:10 Coronavirus (PCR) Negative (Negative) 10/30/21 Unknown Blood Type O POSITIVE 11/12/21 04:15 Antibody Screen Negative 11/12/21 04:15 Crossmatch See Detail 11/12/21 04:15 Krishna/IV: Voiding Method External Female Catheter Active Medications - Current Medications Current Medications: Generic Name Dose Route Start Last Admin Trade Name Freq PRN Reason Stop Dose Admin Acetaminophen 650 mg 10/29/21 17:04 11/12/21 22:53 Acetaminophen 650 Mg Rect Supp CO 650 mg Q6H PRN Administration Pain MILD(1-3)/Fever >100.5/NIEVES Acetaminophen 650 mg 11/19/21 16:35 11/24/21 10:08 Acetaminophen 325 Mg Tab PO 650 mg Q6HR PRN Administration PAIN Alprazolam 0.25 mg 11/14/21 14:29 11/22/21 21:57 Alprazolam 0.25 Mg Tab PO 0.25 mg Q8H PRN Administration Anxiety Dextrose 0 ml 11/04/21 13:48 11/12/21 05:45 Dextrose 10% *Hypoglycemia IV 50 ml PRN PRN Administration Hypoglycemia Docusate Sodium 100 mg 11/18/21 15:00 11/24/21 10:02 Docusate Sodium 100 Mg Cap PO 100 mg BID RAMON Administration Famotidine 10 mg 11/06/21 10:00 11/24/21 10:01 Famotidine 10 Mg Tab PO 10 mg BID RAMON Administration Furosemide 20 mg 11/18/21 10:00 11/24/21 10:01 Furosemide 20 Mg/2 Ml Inj IV 20 mg BID RAMON Administration Hydralazine HCl 50 mg 11/22/21 22:00 11/24/21 05:21 Hydralazine 25 Mg Tab PO 50 mg Q8HR RAMON Administration Hydrophilic Ointment 1 applic 10/29/21 14:29 11/09/21 08:51 Lip Therapy Vaseline TP 1 applic Q2HR PRN Administration Dry Lips Insulin Human Lispro 0 unit 10/30/21 16:00 11/24/21 06:23 Insulin Lispro 100 Unit/Ml SUB-Q Not Given Q6HR [facility] Protocol Lactulose 20 gm 11/18/21 14:43 11/18/21 15:06 Lactulose 20 Gm/30 Ml Oral Liqd PO 20 gm Q6H PRN Administration Constipation Losartan Potassium 50 mg 11/20/21 11:00 11/24/21 10:01 Losartan 25 Mg Tab PO 50 mg BID RAMON Administration Melatonin 10 mg 11/22/21 17:31 11/22/21 21:56 Melatonin 5 Mg Tab PO 10 mg QHS PRN Administration Sleep Metoprolol Tartrate 100 mg 11/16/21 22:00 11/24/21 10:03 Metoprolol Tartrate 100 Mg Tab PO 100 mg BID RAMON Administration Multi-Ingred Cream/Lotion/Oil/Oint 1 applic 10/29/21 14:29 11/06/21 09:25 Mineral Oil/Petrolatum, White Ophth Oint 3.5 Gm OU 1 applic Q4HR PRN Administration Dry Eye(s) Polyethylene Glycol 17 gm 11/20/21 12:47 11/20/21 13:07 Polyethylene Glycol 3350 17 Gm Powder PO 17 gm QDAY PRN Administration Constipation Senna/Docusate Sodium 1 tab 11/16/21 22:00 11/24/21 10:02 Sennosides/Docusate Sodium 8.6/50 Mg Tab PO 1 tab BID RAMON Administration Sodium Chloride 10 ml 10/29/21 22:00 11/24/21 10:03 Sodium Chloride 0.9% 10 Ml Flush Syringe IV 10 ml BID RAMON Administration Sodium Chloride 10 ml 10/29/21 17:04 Sodium Chloride 0.9% 10 Ml Flush Syringe IV PRN PRN LINE FLUSH Spironolactone 25 mg 11/10/21 10:00 11/24/21 10:02 Spironolactone 25 Mg Tab PO 25 mg QDAY RAMON Administration Nutrition/Malnutrition Assess - Dietary Evaluation Nutrition/Malnutrition Findings: Nutrition Notes Start: 10/30/21 09:50 Freq: Status: Active Protocol: Document 11/17/21 14:55 MEENU (Rec: 11/17/21 15:13 MEENU [id number]) Nutrition Notes Current Diagnosis Sepsis,Hypertension, Respiratory Failure Other Pertinent Diagnosis s/p Cardiac Arrest, DVT, Anemia, Pneumonia, Pneumothorax, P Edema, HFrEF.. . Current Diet Pureed Diet (since L 11/15). Height 5 ft 10 in Weight 112 kg [place] Body Weight (kg) 68.18 BMI 35.4 Weight change and time frame No body weight change reported in 2 days. Weight Status Obese Subjective/Other Information RD consulr for routine F/U on Diet tolerance/advancement. Reports on Pt's PO intake show that pt has a preference for Dinner (100%), that Breakfast or Lunch (0-50%), according to ADL notes. Plans for discharge Pt on . Percent of energy/protein needs met: Prescribed Pureed Diet provides for energy/protein needs (1,804 Kcal/77 g) during LOS. #1 Nutrition Diagnosis Inadequate oral intake Comments: Reports on Pt's PO intake show that pt has a preference for Dinner (100%), that Breakfast or Lunch (0-50%), according to ADL notes. Diagnosis Progress(for reassessment Improved documentation) Is patient on ventilator? No Is Patient Ambulatory and/or Out of Bed No REE-([place]-St. Jeor-confined to bed) 2087.388 Kcal/Kg value to use for calculation 15 Approximate Energy Requirements Using 1680 kcal/Kg Calculation Used for Recommendations Kcal/kg Additional Notes Protein: 0.8-1.2 g/Kg IBW; 70- 105 g/day. Fluids: 1 ml/Kcal, or as per MD. Nutrition Intervention Change Diet Order: Continue Pureed Diet. Goal #1 Maintain body weight within +/ -3% of admission body weight during LOS. Goal #2 Facilitate PO intake of meals with mechanical modification during LOS. Follow-Up By: 11/24/21 Additional Comments Continue monitoring food tolerance, %PO intake of meals , and BM.
--- NOTE | 2021-11-24 13:49 | Progress Note ---
Assessment and Plan Acute hypoxemic respiratory failure on MVS Cardiac arrest with ROSC Acute DVT Right pneumothorax Shock (septic +/- cardiogenic) Possible aspiration pneumonia SIERRA Altered mental status/acute encephalopathy Elevated serum transaminases, likely shock liver Metabolic acidosis Obesity Retro-peritoneal Hematoma Leukocytosis Hypokalemia Lactic acidosis - continue gentle diuresis - continue BIPAP scheduled qhs with prn daytime use - continue care as below otherwise; - continue to wean supplemental oxygen for target O2 sat's > 90% acutely - aspiration precautions - continue bronchodilators with pulmonary hygiene per RT - continue accuchecks with glycemic control per SSI for target blood glucose < 180 mg/dL - avoid nephrotoxins, renally dose all medications - continue to avoid benzodiazepine's, reduce the possibility of delirium - AB's per ID rec's - prn analgesia per pain score - Maintenance of sleep-wake cycle, avoid delirium - G.I. & VTE prophylaxis - PT/OT/ROM exercises - continue mobility protocols for pressure ulcer prophylaxis - Monitor hemodynamics closely - continue other care per attending / other consultants - discharge planning ongoing concurrently COVID SPECIFIC INTERVENTIONS - COVID-19 PCR negative .... Re-evaluate in am & prn Subjective Date of service: 11/24/21 Principal diagnosis: AHRF; Cardiac arrest; R. pneumothorax; pneumonia; AMS; DVT's; SIERRA; Obesity Interval history: Patient is seen today for: Acute hypoxemic respiratory failure; Cardiac arrest with ROSC; Right pneumothorax; pneumonia; AMS; bilateral DVT's; SIERRA; Obesity Seen and examined at bedside; 24hour events reviewed; nursing and respiratory care staff consulted; no adverse overnight events reported to me; resting in bed; Objective Vital Signs - 12hr 11/24/21 11/24/21 11/24/21 02:06 03:55 03:59 Temperature 98.6 F Pulse Rate 67 67 67 Pulse Rate [ Left Radial] Respiratory 23 19 20 Rate Blood Pressure 131/76 O2 Sat by Pulse 97 99 100 Oximetry 11/24/21 11/24/21 11/24/21 05:21 06:28 08:08 Temperature 97.6 F Pulse Rate 67 76 Pulse Rate [ Left Radial] Respiratory 18 Rate Blood Pressure 131/76 145/74 O2 Sat by Pulse 98 98 Oximetry 11/24/21 11/24/21 11/24/21 10:00 11:35 11:50 Temperature 98.5 F Pulse Rate 67 Pulse Rate [ 72 Left Radial] Respiratory 18 Rate Blood Pressure 136/75 O2 Sat by Pulse 99 99 100 Oximetry Constitutional: no acute distress, other (elderly obese female with mildly increased respiratory effort at rest ) Eyes: non-icteric ENT: oropharynx moist Neck: supple, no lymphadenopathy, no JVD, other (large circumference) Effort: mildly labored Ascultation: Bilateral: diminished breath sounds, rhonchi (scant) Percussion: Bilateral: not dull Cardiovascular: irregular rhythm, other (no R/M) Gastrointestinal: normoactive bowel sounds, soft, non-tender, other (obese) Integumentary: normal, other (Left flank ecchymosis with induration) Extremities: no cyanosis, pulses normal, no ischemia or petechiae, edema (2+) Neurologic: normal mental status, non-focal exam (grossly), pupils equal and round, motor strength normal and (weak) Psychiatric: mood appropriate, affect normal CBC and BMP: 11/24/21 07:19 11/24/21 07:19 ABG, PT/INR, D-dimer: ABG ABG pH 7.475 pH Units (7.350-7.450) H 11/11/21 13:53 ABG pCO2 45.0 mm Hg 11/11/21 13:53 ABG pO2 64.1 mm Hg (80.0-90.0) L 11/11/21 13:53 ABG O2 Saturation 96.3 % (95.0-99.0) 11/11/21 13:53 PT/INR, D-dimer PT 17.2 Sec. (12.2-14.9) H 10/30/21 16:30 INR 1.27 (0.87-1.13) H 10/30/21 16:30 D-Dimer > 62056 ng/mlDDU (0-234) H 10/30/21 Unknown Abnormal lab findings: Abnormal Labs 10/29/21 10/29/21 10/29/21 15:10 15:10 15:10 WBC 27.8 H RBC Hgb Hct MCH 27 L RDW Plt Count Lymph % (Auto) George % (Auto) Lymph # (Auto) George # (Auto) Seg Neutrophils % Seg Neuts % (Manual) 78.0 H Lymphocytes % (Manual) 10.0 L Nucleated RBC % Seg Neutrophils # Seg Neutrophils # Man 21.7 H Monocytes # (Manual) 1.4 H PT INR APTT D-Dimer Heparin Anti-Xa Level ABG pH ABG pO2 ABG HCO3 ABG O2 Saturation ABG Base Excess ABG Hemoglobin Oxyhemoglobin Sodium Potassium Chloride Carbon Dioxide BUN Creatinine Glucose POC Glucose Hemoglobin A1c Lactic Acid 6.80 H* Calcium Phosphorus Magnesium Ferritin AST ALT Alkaline Phosphatase Lactate Dehydrogenase Troponin T 0.089 H C-Reactive Protein Total Protein Albumin LDL Cholesterol Direct Urine Creatinine Urine Total Protein Salicylates Acetaminophen Crossmatch 10/29/21 10/29/21 10/29/21 15:10 15:10 15:10 WBC RBC Hgb Hct MCH RDW Plt Count Lymph % (Auto) George % (Auto) Lymph # (Auto) George # (Auto) Seg Neutrophils % Seg Neuts % (Manual) Lymphocytes % (Manual) Nucleated RBC % Seg Neutrophils # Seg Neutrophils # Man Monocytes # (Manual) PT INR APTT D-Dimer Heparin Anti-Xa Level ABG pH ABG pO2 ABG HCO3 ABG O2 Saturation ABG Base Excess ABG Hemoglobin Oxyhemoglobin Sodium 136 L Potassium 2.8 L* Chloride 93.4 L Carbon Dioxide 20 L BUN Creatinine Glucose 330 H POC Glucose Hemoglobin A1c Lactic Acid Calcium Phosphorus Magnesium Ferritin AST 1013 H ALT 1289 H Alkaline Phosphatase 246 H Lactate Dehydrogenase Troponin T C-Reactive Protein Total Protein Albumin LDL Cholesterol Direct Urine Creatinine Urine Total Protein Salicylates < 0.3 L Acetaminophen 5.0 L Crossmatch 10/29/21 10/29/21 10/29/21 15:11 16:01 19:29 WBC RBC Hgb Hct MCH RDW Plt Count Lymph % (Auto) George % (Auto) Lymph # (Auto) George # (Auto) Seg Neutrophils % Seg Neuts % (Manual) Lymphocytes % (Manual) Nucleated RBC % Seg Neutrophils # Seg Neutrophils # Man Monocytes # (Manual) PT INR APTT D-Dimer Heparin Anti-Xa Level ABG pH 7.307 L ABG pO2 64.1 L ABG HCO3 ABG O2 Saturation 90.8 L ABG Base Excess -2.9 L ABG Hemoglobin Oxyhemoglobin 89.3 L Sodium Potassium Chloride Carbon Dioxide BUN Creatinine Glucose POC Glucose Hemoglobin A1c Lactic Acid 2.60 H* Calcium Phosphorus Magnesium 2.90 H Ferritin AST ALT Alkaline Phosphatase Lactate Dehydrogenase Troponin T C-Reactive Protein Total Protein Albumin LDL Cholesterol Direct Urine Creatinine Urine Total Protein Salicylates Acetaminophen Crossmatch 10/29/21 10/29/21 10/30/21 19:40 22:34 04:30 WBC 16.2 H RBC Hgb Hct MCH 26 L RDW 15.5 H Plt Count Lymph % (Auto) 6.2 L George % (Auto) Lymph # (Auto) 1.0 L George # (Auto) 0.9 H Seg Neutrophils % 88.1 H Seg Neuts % (Manual) Lymphocytes % (Manual) Nucleated RBC % Seg Neutrophils # 14.2 H Seg Neutrophils # Man Monocytes # (Manual) PT INR APTT D-Dimer Heparin Anti-Xa Level ABG pH ABG pO2 ABG HCO3 ABG O2 Saturation ABG Base Excess ABG Hemoglobin Oxyhemoglobin Sodium Potassium Chloride Carbon Dioxide BUN Creatinine Glucose POC Glucose Hemoglobin A1c Lactic Acid Calcium Phosphorus Magnesium Ferritin AST ALT Alkaline Phosphatase Lactate Dehydrogenase Troponin T 1.950 H* D 1.150 H* D C-Reactive Protein Total Protein Albumin LDL Cholesterol Direct 43 L Urine Creatinine Urine Total Protein Salicylates Acetaminophen Crossmatch 10/30/21 10/30/21 10/30/21 04:30 04:35 05:45 WBC RBC Hgb Hct MCH RDW Plt Count Lymph % (Auto) George % (Auto) Lymph # (Auto) George # (Auto) Seg Neutrophils % Seg Neuts % (Manual) Lymphocytes % (Manual) Nucleated RBC % Seg Neutrophils # Seg Neutrophils # Man Monocytes # (Manual) PT INR APTT D-Dimer Heparin Anti-Xa Level ABG pH ABG pO2 69.5 L ABG HCO3 ABG O2 Saturation ABG Base Excess -2.7 L ABG Hemoglobin Oxyhemoglobin 94.7 L Sodium Potassium Chloride Carbon Dioxide 21 L BUN Creatinine Glucose 159 H POC Glucose 151 H Hemoglobin A1c Lactic Acid Calcium 7.9 L D Phosphorus Magnesium Ferritin AST 461 H ALT 686 H Alkaline Phosphatase 130 H Lactate Dehydrogenase Troponin T C-Reactive Protein Total Protein 5.6 L D Albumin 3.2 L LDL Cholesterol Direct Urine Creatinine Urine Total Protein Salicylates Acetaminophen Crossmatch 10/30/21 10/30/21 10/30/21 11:24 15:59 16:30 WBC RBC Hgb Hct MCH RDW Plt Count Lymph % (Auto) George % (Auto) Lymph # (Auto) George # (Auto) Seg Neutrophils % Seg Neuts % (Manual) Lymphocytes % (Manual) Nucleated RBC % Seg Neutrophils # Seg Neutrophils # Man Monocytes # (Manual) PT 17.2 H INR 1.27 H APTT 44.4 H D-Dimer Heparin Anti-Xa Level ABG pH ABG pO2 ABG HCO3 ABG O2 Saturation ABG Base Excess ABG Hemoglobin Oxyhemoglobin Sodium Potassium Chloride Carbon Dioxide BUN Creatinine Glucose POC Glucose 153 H 109 H Hemoglobin A1c Lactic Acid Calcium Phosphorus Magnesium Ferritin AST ALT Alkaline Phosphatase Lactate Dehydrogenase Troponin T C-Reactive Protein Total Protein Albumin LDL Cholesterol Direct Urine Creatinine Urine Total Protein Salicylates Acetaminophen Crossmatch 10/30/21 10/30/21 10/30/21 23:00 Unknown Unknown WBC RBC Hgb Hct MCH RDW Plt Count Lymph % (Auto) George % (Auto) Lymph # (Auto) George # (Auto) Seg Neutrophils % Seg Neuts % (Manual) Lymphocytes % (Manual) Nucleated RBC % Seg Neutrophils # Seg Neutrophils # Man Monocytes # (Manual) PT INR APTT D-Dimer > 41952 H Heparin Anti-Xa Level 0.82 H ABG pH ABG pO2 ABG HCO3 ABG O2 Saturation ABG Base Excess ABG Hemoglobin Oxyhemoglobin Sodium Potassium Chloride Carbon Dioxide BUN Creatinine Glucose POC Glucose Hemoglobin A1c Lactic Acid Calcium Phosphorus Magnesium Ferritin 208.4 H AST ALT Alkaline Phosphatase Lactate Dehydrogenase Troponin T C-Reactive Protein Total Protein Albumin LDL Cholesterol Direct Urine Creatinine Urine Total Protein Salicylates Acetaminophen Crossmatch 10/30/21 10/31/21 10/31/21 Unknown 04:30 04:30 WBC 14.4 H RBC Hgb Hct MCH 26 L RDW Plt Count Lymph % (Auto) George % (Auto) Lymph # (Auto) George # (Auto) Seg Neutrophils % Seg Neuts % (Manual) Lymphocytes % (Manual) Nucleated RBC % Seg Neutrophils # Seg Neutrophils # Man Monocytes # (Manual) PT INR APTT D-Dimer Heparin Anti-Xa Level ABG pH ABG pO2 ABG HCO3 ABG O2 Saturation ABG Base Excess ABG Hemoglobin Oxyhemoglobin Sodium Potassium 3.5 L Chloride 107.5 H Carbon Dioxide 20 L BUN 28 H Creatinine 1.7 H Glucose 113 H POC Glucose Hemoglobin A1c Lactic Acid Calcium 7.9 L Phosphorus Magnesium Ferritin AST ALT Alkaline Phosphatase Lactate Dehydrogenase 469 H Troponin T C-Reactive Protein 13.40 H Total Protein Albumin LDL Cholesterol Direct Urine Creatinine Urine Total Protein Salicylates Acetaminophen Crossmatch 10/31/21 10/31/21 10/31/21 04:30 05:11 15:30 WBC RBC Hgb Hct MCH RDW Plt Count Lymph % (Auto) George % (Auto) Lymph # (Auto) George # (Auto) Seg Neutrophils % Seg Neuts % (Manual) Lymphocytes % (Manual) Nucleated RBC % Seg Neutrophils # Seg Neutrophils # Man Monocytes # (Manual) PT INR APTT D-Dimer Heparin Anti-Xa Level ABG pH 7.222 L ABG pO2 61.5 L ABG HCO3 ABG O2 Saturation 86.2 L ABG Base Excess -6.3 L ABG Hemoglobin 11.2 L Oxyhemoglobin 84.5 L Sodium Potassium Chloride Carbon Dioxide BUN Creatinine Glucose POC Glucose 106 H Hemoglobin A1c 6.7 H Lactic Acid Calcium Phosphorus Magnesium Ferritin AST ALT Alkaline Phosphatase Lactate Dehydrogenase Troponin T C-Reactive Protein Total Protein Albumin LDL Cholesterol Direct Urine Creatinine Urine Total Protein Salicylates Acetaminophen Crossmatch 10/31/21 10/31/21 10/31/21 16:07 16:35 17:45 WBC RBC Hgb Hct MCH RDW Plt Count Lymph % (Auto) George % (Auto) Lymph # (Auto) George # (Auto) Seg Neutrophils % Seg Neuts % (Manual) Lymphocytes % (Manual) Nucleated RBC % Seg Neutrophils # Seg Neutrophils # Man Monocytes # (Manual) PT INR APTT D-Dimer Heparin Anti-Xa Level ABG pH 7.267 L ABG pO2 58.3 L ABG HCO3 ABG O2 Saturation 88.3 L ABG Base Excess -5.9 L ABG Hemoglobin 10.1 L Oxyhemoglobin 86.5 L Sodium Potassium Chloride Carbon Dioxide BUN Creatinine Glucose POC Glucose 115 H Hemoglobin A1c Lactic Acid Calcium Phosphorus Magnesium Ferritin AST ALT Alkaline Phosphatase Lactate Dehydrogenase Troponin T C-Reactive Protein Total Protein Albumin LDL Cholesterol Direct Urine Creatinine 383.6 H Urine Total Protein Salicylates Acetaminophen Crossmatch 11/01/21 11/01/21 11/01/21 00:06 05:08 06:00 WBC 12.6 H RBC 3.43 L Hgb 8.9 L Hct 28.7 L MCH 26 L RDW 15.7 H Plt Count 130 L Lymph % (Auto) George % (Auto) Lymph # (Auto) George # (Auto) Seg Neutrophils % Seg Neuts % (Manual) Lymphocytes % (Manual) Nucleated RBC % Seg Neutrophils # Seg Neutrophils # Man Monocytes # (Manual) PT INR APTT D-Dimer Heparin Anti-Xa Level ABG pH ABG pO2 ABG HCO3 ABG O2 Saturation ABG Base Excess ABG Hemoglobin Oxyhemoglobin Sodium Potassium Chloride Carbon Dioxide BUN Creatinine Glucose POC Glucose 114 H 120 H Hemoglobin A1c Lactic Acid Calcium Phosphorus Magnesium Ferritin AST ALT Alkaline Phosphatase Lactate Dehydrogenase Troponin T C-Reactive Protein Total Protein Albumin LDL Cholesterol Direct Urine Creatinine Urine Total Protein Salicylates Acetaminophen Crossmatch 11/01/21 11/01/21 11/01/21 06:00 11:43 14:00 WBC RBC Hgb Hct MCH RDW Plt Count Lymph % (Auto) George % (Auto) Lymph # (Auto) George # (Auto) Seg Neutrophils % Seg Neuts % (Manual) Lymphocytes % (Manual) Nucleated RBC % Seg Neutrophils # Seg Neutrophils # Man Monocytes # (Manual) PT INR APTT D-Dimer Heparin Anti-Xa Level ABG pH 7.349 L ABG pO2 75.6 L ABG HCO3 ABG O2 Saturation ABG Base Excess -3.9 L ABG Hemoglobin 9.8 L Oxyhemoglobin 93.5 L Sodium Potassium Chloride 114.1 H Carbon Dioxide 20 L BUN 33 H Creatinine Glucose 131 H POC Glucose 151 H Hemoglobin A1c Lactic Acid Calcium 7.7 L Phosphorus Magnesium Ferritin AST 79 H ALT 259 H Alkaline Phosphatase Lactate Dehydrogenase Troponin T C-Reactive Protein Total Protein 5.5 L Albumin 2.7 L LDL Cholesterol Direct Urine Creatinine Urine Total Protein Salicylates Acetaminophen Crossmatch 11/01/21 11/01/21 11/02/21 16:45 22:55 05:12 WBC RBC Hgb Hct MCH RDW Plt Count Lymph % (Auto) George % (Auto) Lymph # (Auto) George # (Auto) Seg Neutrophils % Seg Neuts % (Manual) Lymphocytes % (Manual) Nucleated RBC % Seg Neutrophils # Seg Neutrophils # Man Monocytes # (Manual) PT INR APTT D-Dimer Heparin Anti-Xa Level ABG pH ABG pO2 ABG HCO3 ABG O2 Saturation ABG Base Excess ABG Hemoglobin Oxyhemoglobin Sodium Potassium Chloride Carbon Dioxide BUN Creatinine Glucose POC Glucose 119 H 129 H 140 H Hemoglobin A1c Lactic Acid Calcium Phosphorus Magnesium Ferritin AST ALT Alkaline Phosphatase Lactate Dehydrogenase Troponin T C-Reactive Protein Total Protein Albumin LDL Cholesterol Direct Urine Creatinine Urine Total Protein Salicylates Acetaminophen Crossmatch 11/02/21 11/02/21 11/02/21 05:35 05:35 09:35 WBC 13.5 H RBC 3.60 L Hgb 9.7 L Hct MCH 27 L RDW 15.7 H Plt Count Lymph % (Auto) George % (Auto) Lymph # (Auto) George # (Auto) Seg Neutrophils % Seg Neuts % (Manual) Lymphocytes % (Manual) Nucleated RBC % Seg Neutrophils # Seg Neutrophils # Man Monocytes # (Manual) PT INR APTT D-Dimer Heparin Anti-Xa Level ABG pH 7.208 L ABG pO2 75.9 L ABG HCO3 ABG O2 Saturation 93.6 L ABG Base Excess -4.3 L ABG Hemoglobin 9.1 L Oxyhemoglobin 91.6 L Sodium Potassium 5.2 H D Chloride 112.6 H Carbon Dioxide BUN 32 H Creatinine Glucose 152 H POC Glucose Hemoglobin A1c Lactic Acid Calcium 8.2 L Phosphorus Magnesium 2.70 H Ferritin AST ALT Alkaline Phosphatase Lactate Dehydrogenase Troponin T C-Reactive Protein Total Protein Albumin LDL Cholesterol Direct Urine Creatinine Urine Total Protein Salicylates Acetaminophen Crossmatch 11/02/21 11/02/21 11/02/21 11:44 17:13 23:43 WBC RBC Hgb Hct MCH RDW Plt Count Lymph % (Auto) George % (Auto) Lymph # (Auto) George # (Auto) Seg Neutrophils % Seg Neuts % (Manual) Lymphocytes % (Manual) Nucleated RBC % Seg Neutrophils # Seg Neutrophils # Man Monocytes # (Manual) PT INR APTT D-Dimer Heparin Anti-Xa Level ABG pH ABG pO2 ABG HCO3 ABG O2 Saturation ABG Base Excess ABG Hemoglobin Oxyhemoglobin Sodium Potassium Chloride Carbon Dioxide BUN Creatinine Glucose POC Glucose 173 H 148 H 137 H Hemoglobin A1c Lactic Acid Calcium Phosphorus Magnesium Ferritin AST ALT Alkaline Phosphatase Lactate Dehydrogenase Troponin T C-Reactive Protein Total Protein Albumin LDL Cholesterol Direct Urine Creatinine Urine Total Protein Salicylates Acetaminophen Crossmatch 11/03/21 11/03/21 11/03/21 04:59 06:00 06:00 WBC RBC 3.43 L Hgb 9.1 L Hct 29.0 L MCH 26 L RDW 16.4 H Plt Count Lymph % (Auto) George % (Auto) Lymph # (Auto) George # (Auto) Seg Neutrophils % Seg Neuts % (Manual) Lymphocytes % (Manual) Nucleated RBC % Seg Neutrophils # Seg Neutrophils # Man Monocytes # (Manual) PT INR APTT D-Dimer Heparin Anti-Xa Level 0.17 L ABG pH ABG pO2 ABG HCO3 ABG O2 Saturation ABG Base Excess ABG Hemoglobin Oxyhemoglobin Sodium Potassium Chloride Carbon Dioxide BUN Creatinine Glucose POC Glucose 167 H Hemoglobin A1c Lactic Acid Calcium Phosphorus Magnesium Ferritin AST ALT Alkaline Phosphatase Lactate Dehydrogenase Troponin T C-Reactive Protein Total Protein Albumin LDL Cholesterol Direct Urine Creatinine Urine Total Protein Salicylates Acetaminophen Crossmatch 11/03/21 11/03/21 11/03/21 06:00 09:20 11:58 WBC RBC Hgb Hct MCH RDW Plt Count Lymph % (Auto) George % (Auto) Lymph # (Auto) George # (Auto) Seg Neutrophils % Seg Neuts % (Manual) Lymphocytes % (Manual) Nucleated RBC % Seg Neutrophils # Seg Neutrophils # Man Monocytes # (Manual) PT INR APTT D-Dimer Heparin Anti-Xa Level ABG pH 7.274 L ABG pO2 75.6 L ABG HCO3 ABG O2 Saturation 94.9 L ABG Base Excess -2.5 L ABG Hemoglobin 9.3 L Oxyhemoglobin 92.9 L Sodium 149 H Potassium Chloride 117.5 H Carbon Dioxide BUN 32 H Creatinine Glucose 173 H POC Glucose 192 H Hemoglobin A1c Lactic Acid Calcium 8.1 L Phosphorus Magnesium Ferritin AST ALT Alkaline Phosphatase Lactate Dehydrogenase Troponin T C-Reactive Protein Total Protein Albumin LDL Cholesterol Direct Urine Creatinine Urine Total Protein Salicylates Acetaminophen Crossmatch 11/03/21 11/03/21 11/04/21 18:22 Unknown 00:09 WBC RBC Hgb Hct MCH RDW Plt Count Lymph % (Auto) George % (Auto) Lymph # (Auto) George # (Auto) Seg Neutrophils % Seg Neuts % (Manual) Lymphocytes % (Manual) Nucleated RBC % Seg Neutrophils # Seg Neutrophils # Man Monocytes # (Manual) PT INR APTT D-Dimer Heparin Anti-Xa Level 0.29 L ABG pH ABG pO2 ABG HCO3 ABG O2 Saturation ABG Base Excess ABG Hemoglobin Oxyhemoglobin Sodium Potassium Chloride Carbon Dioxide BUN Creatinine Glucose POC Glucose 178 H 221 H Hemoglobin A1c Lactic Acid Calcium Phosphorus Magnesium Ferritin AST ALT Alkaline Phosphatase Lactate Dehydrogenase Troponin T C-Reactive Protein Total Protein Albumin LDL Cholesterol Direct Urine Creatinine Urine Total Protein Salicylates Acetaminophen Crossmatch 11/04/21 11/04/21 11/04/21 05:09 09:40 09:40 WBC 16.8 H RBC Hgb Hct MCH 27 L RDW 16.5 H Plt Count Lymph % (Auto) George % (Auto) Lymph # (Auto) George # (Auto) Seg Neutrophils % Seg Neuts % (Manual) Lymphocytes % (Manual) Nucleated RBC % Seg Neutrophils # Seg Neutrophils # Man Monocytes # (Manual) PT INR APTT D-Dimer Heparin Anti-Xa Level ABG pH ABG pO2 ABG HCO3 ABG O2 Saturation ABG Base Excess ABG Hemoglobin Oxyhemoglobin Sodium Potassium 5.9 H Chloride 108.5 H Carbon Dioxide BUN 54 H Creatinine 1.8 H Glucose 198 H POC Glucose 182 H Hemoglobin A1c Lactic Acid Calcium Phosphorus Magnesium 3.00 H Ferritin AST ALT Alkaline Phosphatase Lactate Dehydrogenase Troponin T C-Reactive Protein Total Protein Albumin LDL Cholesterol Direct Urine Creatinine Urine Total Protein Salicylates Acetaminophen Crossmatch 11/04/21 11/04/21 11/04/21 12:13 13:34 14:05 WBC RBC Hgb Hct MCH RDW Plt Count Lymph % (Auto) George % (Auto) Lymph # (Auto) George # (Auto) Seg Neutrophils % Seg Neuts % (Manual) Lymphocytes % (Manual) Nucleated RBC % Seg Neutrophils # Seg Neutrophils # Man Monocytes # (Manual) PT INR APTT D-Dimer Heparin Anti-Xa Level ABG pH 7.223 L ABG pO2 71.3 L ABG HCO3 ABG O2 Saturation 92.8 L ABG Base Excess ABG Hemoglobin 8.2 L Oxyhemoglobin 91.0 L Sodium Potassium Chloride Carbon Dioxide BUN Creatinine Glucose POC Glucose 184 H Hemoglobin A1c Lactic Acid Calcium Phosphorus Magnesium Ferritin AST ALT Alkaline Phosphatase Lactate Dehydrogenase Troponin T C-Reactive Protein Total Protein Albumin LDL Cholesterol Direct Urine Creatinine 184.6 H Urine Total Protein Salicylates Acetaminophen Crossmatch 11/04/21 11/04/21 11/05/21 18:02 Unknown 00:07 WBC RBC Hgb Hct MCH RDW Plt Count Lymph % (Auto) George % (Auto) Lymph # (Auto) George # (Auto) Seg Neutrophils % Seg Neuts % (Manual) Lymphocytes % (Manual) Nucleated RBC % Seg Neutrophils # Seg Neutrophils # Man Monocytes # (Manual) PT INR APTT D-Dimer Heparin Anti-Xa Level ABG pH ABG pO2 ABG HCO3 ABG O2 Saturation ABG Base Excess ABG Hemoglobin Oxyhemoglobin Sodium Potassium Chloride Carbon Dioxide BUN Creatinine Glucose POC Glucose 262 H 259 H Hemoglobin A1c Lactic Acid Calcium Phosphorus Magnesium Ferritin AST ALT Alkaline Phosphatase Lactate Dehydrogenase Troponin T C-Reactive Protein Total Protein Albumin LDL Cholesterol Direct Urine Creatinine 190.9 H Urine Total Protein 172 H Salicylates Acetaminophen Crossmatch 11/05/21 11/05/21 11/05/21 04:20 04:20 05:30 WBC 17.9 H RBC 3.64 L Hgb 9.7 L Hct MCH 27 L RDW 16.4 H Plt Count Lymph % (Auto) George % (Auto) Lymph # (Auto) George # (Auto) Seg Neutrophils % Seg Neuts % (Manual) Lymphocytes % (Manual) Nucleated RBC % Seg Neutrophils # Seg Neutrophils # Man Monocytes # (Manual) PT INR APTT D-Dimer Heparin Anti-Xa Level ABG pH ABG pO2 ABG HCO3 ABG O2 Saturation ABG Base Excess ABG Hemoglobin Oxyhemoglobin Sodium Potassium 5.6 H Chloride 108.4 H Carbon Dioxide BUN 71 H Creatinine 1.9 H Glucose 270 H POC Glucose 283 H Hemoglobin A1c Lactic Acid Calcium Phosphorus Magnesium Ferritin AST ALT Alkaline Phosphatase Lactate Dehydrogenase Troponin T C-Reactive Protein Total Protein Albumin LDL Cholesterol Direct Urine Creatinine Urine Total Protein Salicylates Acetaminophen Crossmatch 11/05/21 11/05/21 11/05/21 10:05 12:10 15:29 WBC RBC Hgb Hct MCH RDW Plt Count Lymph % (Auto) George % (Auto) Lymph # (Auto) George # (Auto) Seg Neutrophils % Seg Neuts % (Manual) Lymphocytes % (Manual) Nucleated RBC % Seg Neutrophils # Seg Neutrophils # Man Monocytes # (Manual) PT INR APTT D-Dimer Heparin Anti-Xa Level ABG pH 7.248 L ABG pO2 73.7 L ABG HCO3 26.2 H ABG O2 Saturation 93.1 L ABG Base Excess ABG Hemoglobin 8.9 L Oxyhemoglobin 91.4 L Sodium Potassium Chloride Carbon Dioxide BUN Creatinine Glucose POC Glucose 225 H 199 H Hemoglobin A1c Lactic Acid Calcium Phosphorus Magnesium Ferritin AST ALT Alkaline Phosphatase Lactate Dehydrogenase Troponin T C-Reactive Protein Total Protein Albumin LDL Cholesterol Direct Urine Creatinine Urine Total Protein Salicylates Acetaminophen Crossmatch 11/05/21 11/05/21 11/05/21 15:51 17:32 17:40 WBC RBC Hgb Hct MCH RDW Plt Count Lymph % (Auto) George % (Auto) Lymph # (Auto) George # (Auto) Seg Neutrophils % Seg Neuts % (Manual) Lymphocytes % (Manual) Nucleated RBC % Seg Neutrophils # Seg Neutrophils # Man Monocytes # (Manual) PT INR APTT D-Dimer Heparin Anti-Xa Level ABG pH ABG pO2 ABG HCO3 ABG O2 Saturation ABG Base Excess ABG Hemoglobin Oxyhemoglobin Sodium Potassium 5.2 H Chloride 107.8 H Carbon Dioxide BUN 79 H Creatinine 1.9 H Glucose 204 H POC Glucose 278 H 197 H Hemoglobin A1c Lactic Acid Calcium Phosphorus Magnesium Ferritin AST ALT Alkaline Phosphatase Lactate Dehydrogenase Troponin T C-Reactive Protein Total Protein Albumin LDL Cholesterol Direct Urine Creatinine Urine Total Protein Salicylates Acetaminophen Crossmatch 11/05/21 11/05/21 11/05/21 21:25 22:22 23:43 WBC RBC Hgb Hct MCH RDW Plt Count Lymph % (Auto) George % (Auto) Lymph # (Auto) George # (Auto) Seg Neutrophils % Seg Neuts % (Manual) Lymphocytes % (Manual) Nucleated RBC % Seg Neutrophils # Seg Neutrophils # Man Monocytes # (Manual) PT INR APTT D-Dimer Heparin Anti-Xa Level ABG pH ABG pO2 ABG HCO3 ABG O2 Saturation ABG Base Excess ABG Hemoglobin Oxyhemoglobin Sodium Potassium 5.3 H Chloride 109.2 H Carbon Dioxide BUN 81 H Creatinine 2.0 H Glucose 195 H POC Glucose 180 H 203 H Hemoglobin A1c Lactic Acid Calcium Phosphorus Magnesium Ferritin AST ALT Alkaline Phosphatase Lactate Dehydrogenase Troponin T C-Reactive Protein Total Protein Albumin LDL Cholesterol Direct Urine Creatinine Urine Total Protein Salicylates Acetaminophen Crossmatch 11/05/21 11/06/21 11/06/21 Unknown 02:35 05:09 WBC RBC Hgb Hct MCH RDW Plt Count Lymph % (Auto) George % (Auto) Lymph # (Auto) George # (Auto) Seg Neutrophils % Seg Neuts % (Manual) Lymphocytes % (Manual) Nucleated RBC % Seg Neutrophils # Seg Neutrophils # Man Monocytes # (Manual) PT INR APTT D-Dimer Heparin Anti-Xa Level ABG pH ABG pO2 ABG HCO3 ABG O2 Saturation ABG Base Excess ABG Hemoglobin Oxyhemoglobin Sodium 146 H Potassium 6.0 H Chloride 108.1 H 107.1 H Carbon Dioxide 21 L BUN 80 H 84 H Creatinine 2.0 H 2.0 H Glucose 238 H 235 H POC Glucose 215 H Hemoglobin A1c Lactic Acid Calcium Phosphorus Magnesium 2.80 H Ferritin AST ALT 77 H Alkaline Phosphatase Lactate Dehydrogenase Troponin T C-Reactive Protein Total Protein Albumin 3.0 L LDL Cholesterol Direct Urine Creatinine Urine Total Protein Salicylates Acetaminophen Crossmatch 02/13/22 02/13/22 02/13/22 05:40 08:07 08:07 WBC RBC Hgb Hct MCH RDW Plt Count Lymph % (Auto) George % (Auto) Lymph # (Auto) George # (Auto) Seg Neutrophils % Seg Neuts % (Manual) Lymphocytes % (Manual) Nucleated RBC % Seg Neutrophils # Seg Neutrophils # Man Monocytes # (Manual) PT INR APTT D-Dimer Heparin Anti-Xa Level 1.24 H ABG pH 7.311 L ABG pO2 72.8 L ABG HCO3 29.7 H ABG O2 Saturation 94.1 L ABG Base Excess ABG Hemoglobin 11.4 L Oxyhemoglobin 92.3 L Sodium Potassium 5.2 H Chloride Carbon Dioxide BUN 85 H Creatinine 2.3 H Glucose 236 H POC Glucose Hemoglobin A1c Lactic Acid Calcium Phosphorus Magnesium Ferritin AST ALT Alkaline Phosphatase Lactate Dehydrogenase Troponin T C-Reactive Protein Total Protein Albumin LDL Cholesterol Direct Urine Creatinine Urine Total Protein Salicylates Acetaminophen Crossmatch 11/06/21 11/06/21 11/06/21 12:14 12:57 14:28 WBC RBC Hgb Hct MCH RDW Plt Count Lymph % (Auto) George % (Auto) Lymph # (Auto) George # (Auto) Seg Neutrophils % Seg Neuts % (Manual) Lymphocytes % (Manual) Nucleated RBC % Seg Neutrophils # Seg Neutrophils # Man Monocytes # (Manual) PT INR APTT D-Dimer Heparin Anti-Xa Level ABG pH 7.282 L ABG pO2 72.6 L ABG HCO3 30.8 H ABG O2 Saturation 93.7 L ABG Base Excess 3.2 H ABG Hemoglobin 8.6 L Oxyhemoglobin 91.8 L Sodium Potassium Chloride Carbon Dioxide BUN 91 H Creatinine 2.6 H Glucose 259 H POC Glucose 225 H Hemoglobin A1c Lactic Acid Calcium Phosphorus Magnesium Ferritin AST ALT Alkaline Phosphatase Lactate Dehydrogenase Troponin T C-Reactive Protein Total Protein Albumin LDL Cholesterol Direct Urine Creatinine Urine Total Protein Salicylates Acetaminophen Crossmatch 11/06/21 11/06/21 11/06/21 17:28 19:20 21:30 WBC RBC Hgb Hct MCH RDW Plt Count Lymph % (Auto) George % (Auto) Lymph # (Auto) George # (Auto) Seg Neutrophils % Seg Neuts % (Manual) Lymphocytes % (Manual) Nucleated RBC % Seg Neutrophils # Seg Neutrophils # Man Monocytes # (Manual) PT INR APTT D-Dimer Heparin Anti-Xa Level 0.73 H ABG pH ABG pO2 ABG HCO3 ABG O2 Saturation ABG Base Excess ABG Hemoglobin Oxyhemoglobin Sodium Potassium Chloride Carbon Dioxide BUN 95 H Creatinine 2.9 H Glucose 233 H POC Glucose 206 H Hemoglobin A1c Lactic Acid Calcium Phosphorus Magnesium Ferritin AST ALT Alkaline Phosphatase Lactate Dehydrogenase Troponin T C-Reactive Protein Total Protein Albumin LDL Cholesterol Direct Urine Creatinine Urine Total Protein Salicylates Acetaminophen Crossmatch 11/06/21 11/07/21 11/07/21 22:56 05:06 06:30 WBC RBC Hgb Hct MCH RDW Plt Count Lymph % (Auto) George % (Auto) Lymph # (Auto) George # (Auto) Seg Neutrophils % Seg Neuts % (Manual) Lymphocytes % (Manual) Nucleated RBC % Seg Neutrophils # Seg Neutrophils # Man Monocytes # (Manual) PT INR APTT D-Dimer Heparin Anti-Xa Level ABG pH ABG pO2 ABG HCO3 ABG O2 Saturation ABG Base Excess ABG Hemoglobin Oxyhemoglobin Sodium 146 H Potassium Chloride Carbon Dioxide BUN 98 H Creatinine 2.8 H Glucose 202 H POC Glucose 215 H 172 H Hemoglobin A1c Lactic Acid Calcium Phosphorus 4.90 H D Magnesium 2.90 H Ferritin AST ALT Alkaline Phosphatase Lactate Dehydrogenase Troponin T C-Reactive Protein Total Protein Albumin LDL Cholesterol Direct Urine Creatinine Urine Total Protein Salicylates Acetaminophen Crossmatch 11/07/21 11/07/21 11/07/21 06:30 11:26 12:15 WBC 16.0 H RBC 3.06 L Hgb 8.2 L Hct 26.1 L MCH 27 L RDW 16.2 H Plt Count Lymph % (Auto) George % (Auto) Lymph # (Auto) George # (Auto) Seg Neutrophils % Seg Neuts % (Manual) 77.0 H Lymphocytes % (Manual) 11.0 L Nucleated RBC % 2.0 H Seg Neutrophils # Seg Neutrophils # Man 12.3 H Monocytes # (Manual) PT INR APTT D-Dimer Heparin Anti-Xa Level ABG pH 7.298 L ABG pO2 73.0 L ABG HCO3 33.3 H ABG O2 Saturation 94.4 L ABG Base Excess 5.8 H ABG Hemoglobin 8.2 L Oxyhemoglobin 92.7 L Sodium Potassium Chloride Carbon Dioxide BUN Creatinine Glucose POC Glucose 179 H Hemoglobin A1c Lactic Acid Calcium Phosphorus Magnesium Ferritin AST ALT Alkaline Phosphatase Lactate Dehydrogenase Troponin T C-Reactive Protein Total Protein Albumin LDL Cholesterol Direct Urine Creatinine Urine Total Protein Salicylates Acetaminophen Crossmatch 11/07/21 11/07/21 11/07/21 17:57 22:16 23:49 WBC RBC Hgb Hct MCH RDW Plt Count Lymph % (Auto) George % (Auto) Lymph # (Auto) George # (Auto) Seg Neutrophils % Seg Neuts % (Manual) Lymphocytes % (Manual) Nucleated RBC % Seg Neutrophils # Seg Neutrophils # Man Monocytes # (Manual) PT INR APTT D-Dimer Heparin Anti-Xa Level ABG pH ABG pO2 ABG HCO3 ABG O2 Saturation ABG Base Excess ABG Hemoglobin Oxyhemoglobin Sodium Potassium Chloride Carbon Dioxide BUN Creatinine Glucose POC Glucose 166 H 223 H 190 H Hemoglobin A1c Lactic Acid Calcium Phosphorus Magnesium Ferritin AST ALT Alkaline Phosphatase Lactate Dehydrogenase Troponin T C-Reactive Protein Total Protein Albumin LDL Cholesterol Direct Urine Creatinine Urine Total Protein Salicylates Acetaminophen Crossmatch 11/08/21 11/08/21 11/08/21 04:20 04:20 06:16 WBC 22.1 H RBC 3.01 L Hgb 8.1 L Hct 25.6 L MCH 27 L RDW 15.4 H Plt Count Lymph % (Auto) George % (Auto) Lymph # (Auto) George # (Auto) Seg Neutrophils % Seg Neuts % (Manual) Lymphocytes % (Manual) Nucleated RBC % Seg Neutrophils # Seg Neutrophils # Man Monocytes # (Manual) PT INR APTT D-Dimer Heparin Anti-Xa Level ABG pH ABG pO2 ABG HCO3 ABG O2 Saturation ABG Base Excess ABG Hemoglobin Oxyhemoglobin Sodium 151 H Potassium 3.1 L D Chloride 107.3 H Carbon Dioxide 31 H BUN 82 H Creatinine 1.8 H Glucose 232 H POC Glucose 198 H Hemoglobin A1c Lactic Acid Calcium 8.1 L Phosphorus Magnesium Ferritin AST ALT Alkaline Phosphatase Lactate Dehydrogenase Troponin T C-Reactive Protein Total Protein Albumin LDL Cholesterol Direct Urine Creatinine Urine Total Protein Salicylates Acetaminophen Crossmatch 11/08/21 11/08/21 11/08/21 11:38 12:00 18:29 WBC RBC Hgb Hct MCH RDW Plt Count Lymph % (Auto) George % (Auto) Lymph # (Auto) George # (Auto) Seg Neutrophils % Seg Neuts % (Manual) Lymphocytes % (Manual) Nucleated RBC % Seg Neutrophils # Seg Neutrophils # Man Monocytes # (Manual) PT INR APTT D-Dimer Heparin Anti-Xa Level ABG pH ABG pO2 ABG HCO3 ABG O2 Saturation ABG Base Excess ABG Hemoglobin Oxyhemoglobin Sodium Potassium 3.0 L Chloride Carbon Dioxide BUN Creatinine Glucose POC Glucose 190 H 211 H Hemoglobin A1c Lactic Acid Calcium Phosphorus Magnesium Ferritin AST ALT Alkaline Phosphatase Lactate Dehydrogenase Troponin T C-Reactive Protein Total Protein Albumin LDL Cholesterol Direct Urine Creatinine Urine Total Protein Salicylates Acetaminophen Crossmatch 11/08/21 11/08/21 11/09/21 21:34 21:40 00:36 WBC RBC Hgb Hct MCH RDW Plt Count Lymph % (Auto) George % (Auto) Lymph # (Auto) George # (Auto) Seg Neutrophils % Seg Neuts % (Manual) Lymphocytes % (Manual) Nucleated RBC % Seg Neutrophils # Seg Neutrophils # Man Monocytes # (Manual) PT INR APTT D-Dimer Heparin Anti-Xa Level ABG pH ABG pO2 ABG HCO3 ABG O2 Saturation ABG Base Excess ABG Hemoglobin Oxyhemoglobin Sodium 148 H Potassium 2.8 L* Chloride Carbon Dioxide 31 H BUN 68 H Creatinine 1.5 H Glucose 191 H POC Glucose 194 H 140 H Hemoglobin A1c Lactic Acid Calcium 8.2 L Phosphorus Magnesium Ferritin AST ALT Alkaline Phosphatase Lactate Dehydrogenase Troponin T C-Reactive Protein Total Protein Albumin LDL Cholesterol Direct Urine Creatinine Urine Total Protein Salicylates Acetaminophen Crossmatch 11/09/21 11/09/21 11/09/21 04:51 04:51 04:51 WBC 27.6 H RBC 3.18 L Hgb 8.4 L Hct 26.6 L MCH 27 L RDW 15.3 H Plt Count Lymph % (Auto) George % (Auto) Lymph # (Auto) George # (Auto) Seg Neutrophils % Seg Neuts % (Manual) Lymphocytes % (Manual) Nucleated RBC % Seg Neutrophils # Seg Neutrophils # Man Monocytes # (Manual) PT INR APTT D-Dimer Heparin Anti-Xa Level 0.18 L ABG pH ABG pO2 ABG HCO3 ABG O2 Saturation ABG Base Excess ABG Hemoglobin Oxyhemoglobin Sodium 148 H Potassium 2.7 L* Chloride Carbon Dioxide BUN 59 H Creatinine 1.4 H Glucose 143 H POC Glucose Hemoglobin A1c Lactic Acid Calcium 8.3 L Phosphorus Magnesium Ferritin AST ALT Alkaline Phosphatase Lactate Dehydrogenase Troponin T C-Reactive Protein Total Protein Albumin LDL Cholesterol Direct Urine Creatinine Urine Total Protein Salicylates Acetaminophen Crossmatch 11/09/21 11/09/21 11/09/21 05:52 08:45 11:00 WBC RBC Hgb Hct MCH RDW Plt Count Lymph % (Auto) George % (Auto) Lymph # (Auto) George # (Auto) Seg Neutrophils % Seg Neuts % (Manual) Lymphocytes % (Manual) Nucleated RBC % Seg Neutrophils # Seg Neutrophils # Man Monocytes # (Manual) PT INR APTT D-Dimer Heparin Anti-Xa Level ABG pH ABG pO2 73.2 L ABG HCO3 33.8 H ABG O2 Saturation ABG Base Excess 8.7 H ABG Hemoglobin 8.5 L Oxyhemoglobin 94.1 L Sodium Potassium Chloride Carbon Dioxide BUN Creatinine Glucose POC Glucose 166 H 136 H Hemoglobin A1c Lactic Acid Calcium Phosphorus Magnesium Ferritin AST ALT Alkaline Phosphatase Lactate Dehydrogenase Troponin T C-Reactive Protein Total Protein Albumin LDL Cholesterol Direct Urine Creatinine Urine Total Protein Salicylates Acetaminophen Crossmatch 11/09/21 11/09/21 11/09/21 15:48 16:10 20:31 WBC RBC Hgb Hct MCH RDW Plt Count Lymph % (Auto) George % (Auto) Lymph # (Auto) George # (Auto) Seg Neutrophils % Seg Neuts % (Manual) Lymphocytes % (Manual) Nucleated RBC % Seg Neutrophils # Seg Neutrophils # Man Monocytes # (Manual) PT INR APTT D-Dimer Heparin Anti-Xa Level ABG pH ABG pO2 ABG HCO3 ABG O2 Saturation ABG Base Excess ABG Hemoglobin Oxyhemoglobin Sodium Potassium 2.8 L* Chloride Carbon Dioxide 31 H BUN 53 H Creatinine 1.3 H Glucose 208 H POC Glucose 203 H 166 H Hemoglobin A1c Lactic Acid Calcium 7.9 L Phosphorus Magnesium Ferritin AST ALT Alkaline Phosphatase Lactate Dehydrogenase Troponin T C-Reactive Protein Total Protein Albumin LDL Cholesterol Direct Urine Creatinine Urine Total Protein Salicylates Acetaminophen Crossmatch 11/09/21 11/09/21 11/09/21 21:30 23:16 Unknown WBC RBC Hgb Hct MCH RDW Plt Count Lymph % (Auto) George % (Auto) Lymph # (Auto) George # (Auto) Seg Neutrophils % Seg Neuts % (Manual) Lymphocytes % (Manual) Nucleated RBC % Seg Neutrophils # Seg Neutrophils # Man Monocytes # (Manual) PT INR APTT D-Dimer Heparin Anti-Xa Level 0.24 L ABG pH ABG pO2 ABG HCO3 ABG O2 Saturation ABG Base Excess ABG Hemoglobin Oxyhemoglobin Sodium Potassium Chloride Carbon Dioxide BUN 52 H Creatinine 1.4 H Glucose 185 H POC Glucose 172 H Hemoglobin A1c Lactic Acid Calcium 7.8 L Phosphorus Magnesium Ferritin AST ALT Alkaline Phosphatase Lactate Dehydrogenase Troponin T C-Reactive Protein Total Protein Albumin LDL Cholesterol Direct Urine Creatinine Urine Total Protein Salicylates Acetaminophen Crossmatch 11/10/21 11/10/21 11/10/21 02:00 04:17 04:17 WBC 24.5 H RBC 2.75 L Hgb 7.5 L Hct 22.9 L MCH 27 L RDW Plt Count Lymph % (Auto) George % (Auto) Lymph # (Auto) George # (Auto) Seg Neutrophils % Seg Neuts % (Manual) Lymphocytes % (Manual) Nucleated RBC % Seg Neutrophils # Seg Neutrophils # Man Monocytes # (Manual) PT INR APTT D-Dimer Heparin Anti-Xa Level 0.26 L ABG pH ABG pO2 ABG HCO3 ABG O2 Saturation ABG Base Excess ABG Hemoglobin Oxyhemoglobin Sodium Potassium 2.9 L* Chloride Carbon Dioxide 35 H BUN 48 H Creatinine Glucose 212 H POC Glucose Hemoglobin A1c Lactic Acid Calcium 8.1 L Phosphorus Magnesium Ferritin AST ALT Alkaline Phosphatase Lactate Dehydrogenase Troponin T C-Reactive Protein Total Protein Albumin LDL Cholesterol Direct Urine Creatinine Urine Total Protein Salicylates Acetaminophen Crossmatch 11/10/21 11/10/21 11/10/21 05:01 08:39 11:03 WBC RBC Hgb Hct MCH RDW Plt Count Lymph % (Auto) George % (Auto) Lymph # (Auto) George # (Auto) Seg Neutrophils % Seg Neuts % (Manual) Lymphocytes % (Manual) Nucleated RBC % Seg Neutrophils # Seg Neutrophils # Man Monocytes # (Manual) PT INR APTT D-Dimer Heparin Anti-Xa Level 0.12 L ABG pH ABG pO2 ABG HCO3 ABG O2 Saturation ABG Base Excess ABG Hemoglobin Oxyhemoglobin Sodium Potassium Chloride Carbon Dioxide BUN Creatinine Glucose POC Glucose 203 H 152 H Hemoglobin A1c Lactic Acid Calcium Phosphorus Magnesium Ferritin AST ALT Alkaline Phosphatase Lactate Dehydrogenase Troponin T C-Reactive Protein Total Protein Albumin LDL Cholesterol Direct Urine Creatinine Urine Total Protein Salicylates Acetaminophen Crossmatch 11/10/21 11/10/21 11/10/21 12:45 15:43 21:05 WBC RBC Hgb Hct MCH RDW Plt Count Lymph % (Auto) George % (Auto) Lymph # (Auto) George # (Auto) Seg Neutrophils % Seg Neuts % (Manual) Lymphocytes % (Manual) Nucleated RBC % Seg Neutrophils # Seg Neutrophils # Man Monocytes # (Manual) PT INR APTT D-Dimer Heparin Anti-Xa Level ABG pH ABG pO2 ABG HCO3 ABG O2 Saturation ABG Base Excess ABG Hemoglobin Oxyhemoglobin Sodium 146 H Potassium 3.3 L Chloride Carbon Dioxide 31 H BUN 43 H Creatinine Glucose 155 H POC Glucose 139 H 139 H Hemoglobin A1c Lactic Acid Calcium 8.3 L Phosphorus Magnesium Ferritin AST ALT Alkaline Phosphatase Lactate Dehydrogenase Troponin T C-Reactive Protein Total Protein Albumin LDL Cholesterol Direct Urine Creatinine Urine Total Protein Salicylates Acetaminophen Crossmatch 11/10/21 11/11/21 11/11/21 23:25 03:49 03:49 WBC 22.1 H RBC 2.69 L Hgb 7.2 L Hct 22.7 L MCH 27 L RDW Plt Count Lymph % (Auto) George % (Auto) Lymph # (Auto) George # (Auto) Seg Neutrophils % Seg Neuts % (Manual) Lymphocytes % (Manual) Nucleated RBC % Seg Neutrophils # Seg Neutrophils # Man Monocytes # (Manual) PT INR APTT D-Dimer Heparin Anti-Xa Level ABG pH ABG pO2 ABG HCO3 ABG O2 Saturation ABG Base Excess ABG Hemoglobin Oxyhemoglobin Sodium Potassium Chloride Carbon Dioxide 32 H BUN 44 H Creatinine 1.3 H Glucose 173 H POC Glucose 146 H Hemoglobin A1c Lactic Acid Calcium Phosphorus Magnesium Ferritin AST ALT Alkaline Phosphatase Lactate Dehydrogenase Troponin T C-Reactive Protein Total Protein Albumin LDL Cholesterol Direct Urine Creatinine Urine Total Protein Salicylates Acetaminophen Crossmatch 11/11/21 11/11/21 11/11/21 05:03 10:50 11:32 WBC RBC Hgb Hct MCH RDW Plt Count Lymph % (Auto) George % (Auto) Lymph # (Auto) George # (Auto) Seg Neutrophils % Seg Neuts % (Manual) Lymphocytes % (Manual) Nucleated RBC % Seg Neutrophils # Seg Neutrophils # Man Monocytes # (Manual) PT INR APTT D-Dimer Heparin Anti-Xa Level ABG pH ABG pO2 ABG HCO3 ABG O2 Saturation ABG Base Excess ABG Hemoglobin Oxyhemoglobin Sodium Potassium Chloride Carbon Dioxide BUN Creatinine Glucose POC Glucose 152 H 129 H 133 H Hemoglobin A1c Lactic Acid Calcium Phosphorus Magnesium Ferritin AST ALT Alkaline Phosphatase Lactate Dehydrogenase Troponin T C-Reactive Protein Total Protein Albumin LDL Cholesterol Direct Urine Creatinine Urine Total Protein Salicylates Acetaminophen Crossmatch 11/11/21 11/11/21 11/11/21 13:53 16:31 17:13 WBC RBC Hgb Hct MCH RDW Plt Count Lymph % (Auto) George % (Auto) Lymph # (Auto) George # (Auto) Seg Neutrophils % Seg Neuts % (Manual) Lymphocytes % (Manual) Nucleated RBC % Seg Neutrophils # Seg Neutrophils # Man Monocytes # (Manual) PT INR APTT D-Dimer Heparin Anti-Xa Level ABG pH 7.475 H ABG pO2 64.1 L ABG HCO3 32.4 H ABG O2 Saturation ABG Base Excess 8.0 H ABG Hemoglobin 7.6 L Oxyhemoglobin 94.0 L Sodium Potassium Chloride Carbon Dioxide BUN Creatinine Glucose POC Glucose 116 H 125 H Hemoglobin A1c Lactic Acid Calcium Phosphorus Magnesium Ferritin AST ALT Alkaline Phosphatase Lactate Dehydrogenase Troponin T C-Reactive Protein Total Protein Albumin LDL Cholesterol Direct Urine Creatinine Urine Total Protein Salicylates Acetaminophen Crossmatch 11/11/21 11/11/21 11/12/21 20:40 23:35 03:30 WBC 17.7 H RBC 2.37 L Hgb 6.3 L Hct 20.0 L MCH 27 L RDW 15.5 H Plt Count Lymph % (Auto) George % (Auto) Lymph # (Auto) George # (Auto) Seg Neutrophils % Seg Neuts % (Manual) Lymphocytes % (Manual) Nucleated RBC % Seg Neutrophils # Seg Neutrophils # Man Monocytes # (Manual) PT INR APTT D-Dimer Heparin Anti-Xa Level 0.26 L ABG pH ABG pO2 ABG HCO3 ABG O2 Saturation ABG Base Excess ABG Hemoglobin Oxyhemoglobin Sodium Potassium Chloride Carbon Dioxide BUN Creatinine Glucose POC Glucose 118 H Hemoglobin A1c Lactic Acid Calcium Phosphorus Magnesium Ferritin AST ALT Alkaline Phosphatase Lactate Dehydrogenase Troponin T C-Reactive Protein Total Protein Albumin LDL Cholesterol Direct Urine Creatinine Urine Total Protein Salicylates Acetaminophen Crossmatch 11/12/21 11/12/21 11/12/21 03:30 04:15 11:53 WBC RBC Hgb Hct MCH RDW Plt Count Lymph % (Auto) George % (Auto) Lymph # (Auto) George # (Auto) Seg Neutrophils % Seg Neuts % (Manual) Lymphocytes % (Manual) Nucleated RBC % Seg Neutrophils # Seg Neutrophils # Man Monocytes # (Manual) PT INR APTT D-Dimer Heparin Anti-Xa Level ABG pH ABG pO2 ABG HCO3 ABG O2 Saturation ABG Base Excess ABG Hemoglobin Oxyhemoglobin Sodium Potassium Chloride Carbon Dioxide 33 H BUN 38 H Creatinine 1.3 H Glucose 102 H POC Glucose 62 L Hemoglobin A1c Lactic Acid Calcium 8.2 L Phosphorus Magnesium Ferritin AST ALT Alkaline Phosphatase Lactate Dehydrogenase Troponin T C-Reactive Protein Total Protein Albumin LDL Cholesterol Direct Urine Creatinine Urine Total Protein Salicylates Acetaminophen Crossmatch See Detail 11/12/21 11/12/21 11/12/21 17:20 19:14 23:11 WBC RBC Hgb 6.2 L Hct 19.5 L* MCH RDW Plt Count Lymph % (Auto) George % (Auto) Lymph # (Auto) George # (Auto) Seg Neutrophils % Seg Neuts % (Manual) Lymphocytes % (Manual) Nucleated RBC % Seg Neutrophils # Seg Neutrophils # Man Monocytes # (Manual) PT INR APTT D-Dimer Heparin Anti-Xa Level ABG pH ABG pO2 ABG HCO3 ABG O2 Saturation ABG Base Excess ABG Hemoglobin Oxyhemoglobin Sodium Potassium Chloride Carbon Dioxide BUN Creatinine Glucose POC Glucose 115 H 131 H Hemoglobin A1c Lactic Acid Calcium Phosphorus Magnesium Ferritin AST ALT Alkaline Phosphatase Lactate Dehydrogenase Troponin T C-Reactive Protein Total Protein Albumin LDL Cholesterol Direct Urine Creatinine Urine Total Protein Salicylates Acetaminophen Crossmatch 11/13/21 11/13/21 11/13/21 00:13 04:17 04:17 WBC 23.8 H RBC 2.84 L Hgb 7.4 L 7.8 L Hct 23.3 L 24.9 L MCH 27 L RDW 15.4 H Plt Count Lymph % (Auto) George % (Auto) Lymph # (Auto) George # (Auto) Seg Neutrophils % Seg Neuts % (Manual) Lymphocytes % (Manual) Nucleated RBC % Seg Neutrophils # Seg Neutrophils # Man Monocytes # (Manual) PT INR APTT D-Dimer Heparin Anti-Xa Level ABG pH ABG pO2 ABG HCO3 ABG O2 Saturation ABG Base Excess ABG Hemoglobin Oxyhemoglobin Sodium 146 H Potassium Chloride Carbon Dioxide BUN 44 H Creatinine 1.6 H Glucose 144 H POC Glucose Hemoglobin A1c Lactic Acid Calcium 7.9 L Phosphorus 5.10 H D Magnesium Ferritin AST ALT Alkaline Phosphatase Lactate Dehydrogenase Troponin T C-Reactive Protein Total Protein Albumin LDL Cholesterol Direct Urine Creatinine Urine Total Protein Salicylates Acetaminophen Crossmatch 11/13/21 11/13/21 11/13/21 05:52 10:54 15:57 WBC RBC Hgb Hct MCH RDW Plt Count Lymph % (Auto) George % (Auto) Lymph # (Auto) George # (Auto) Seg Neutrophils % Seg Neuts % (Manual) Lymphocytes % (Manual) Nucleated RBC % Seg Neutrophils # Seg Neutrophils # Man Monocytes # (Manual) PT INR APTT D-Dimer Heparin Anti-Xa Level ABG pH ABG pO2 ABG HCO3 ABG O2 Saturation ABG Base Excess ABG Hemoglobin Oxyhemoglobin Sodium Potassium Chloride Carbon Dioxide BUN Creatinine Glucose POC Glucose 123 H 147 H 207 H Hemoglobin A1c Lactic Acid Calcium Phosphorus Magnesium Ferritin AST ALT Alkaline Phosphatase Lactate Dehydrogenase Troponin T C-Reactive Protein Total Protein Albumin LDL Cholesterol Direct Urine Creatinine Urine Total Protein Salicylates Acetaminophen Crossmatch 11/13/21 11/13/21 11/14/21 16:01 23:18 04:55 WBC 23.9 H RBC 2.86 L Hgb 6.5 L 8.3 L Hct 20.3 L 24.5 L MCH RDW Plt Count Lymph % (Auto) George % (Auto) Lymph # (Auto) George # (Auto) Seg Neutrophils % Seg Neuts % (Manual) Lymphocytes % (Manual) Nucleated RBC % Seg Neutrophils # Seg Neutrophils # Man Monocytes # (Manual) PT INR APTT D-Dimer Heparin Anti-Xa Level ABG pH ABG pO2 ABG HCO3 ABG O2 Saturation ABG Base Excess ABG Hemoglobin Oxyhemoglobin Sodium Potassium Chloride Carbon Dioxide BUN Creatinine Glucose POC Glucose 209 H Hemoglobin A1c Lactic Acid Calcium Phosphorus Magnesium Ferritin AST ALT Alkaline Phosphatase Lactate Dehydrogenase Troponin T C-Reactive Protein Total Protein Albumin LDL Cholesterol Direct Urine Creatinine Urine Total Protein Salicylates Acetaminophen Crossmatch 11/14/21 11/14/21 11/14/21 04:55 05:09 11:35 WBC RBC Hgb Hct MCH RDW Plt Count Lymph % (Auto) George % (Auto) Lymph # (Auto) George # (Auto) Seg Neutrophils % Seg Neuts % (Manual) Lymphocytes % (Manual) Nucleated RBC % Seg Neutrophils # Seg Neutrophils # Man Monocytes # (Manual) PT INR APTT D-Dimer Heparin Anti-Xa Level ABG pH ABG pO2 ABG HCO3 ABG O2 Saturation ABG Base Excess ABG Hemoglobin Oxyhemoglobin Sodium 148 H Potassium Chloride 109.0 H Carbon Dioxide BUN 42 H Creatinine 1.6 H Glucose 184 H POC Glucose 169 H 154 H Hemoglobin A1c Lactic Acid Calcium 8.0 L Phosphorus Magnesium Ferritin AST ALT Alkaline Phosphatase Lactate Dehydrogenase Troponin T C-Reactive Protein Total Protein Albumin LDL Cholesterol Direct Urine Creatinine Urine Total Protein Salicylates Acetaminophen Crossmatch 02/11/14/21 11/15/21 16:57 23:11 04:36 WBC RBC Hgb Hct MCH RDW Plt Count Lymph % (Auto) George % (Auto) Lymph # (Auto) George # (Auto) Seg Neutrophils % Seg Neuts % (Manual) Lymphocytes % (Manual) Nucleated RBC % Seg Neutrophils # Seg Neutrophils # Man Monocytes # (Manual) PT INR APTT D-Dimer Heparin Anti-Xa Level ABG pH ABG pO2 ABG HCO3 ABG O2 Saturation ABG Base Excess ABG Hemoglobin Oxyhemoglobin Sodium 151 H Potassium Chloride 111.2 H Carbon Dioxide BUN 36 H Creatinine 1.3 H Glucose 136 H POC Glucose 124 H 118 H Hemoglobin A1c Lactic Acid Calcium 8.1 L Phosphorus Magnesium Ferritin AST ALT Alkaline Phosphatase Lactate Dehydrogenase Troponin T C-Reactive Protein Total Protein Albumin LDL Cholesterol Direct Urine Creatinine Urine Total Protein Salicylates Acetaminophen Crossmatch 11/15/21 11/15/21 11/16/21 11:18 21:49 00:15 WBC RBC Hgb Hct MCH RDW Plt Count Lymph % (Auto) George % (Auto) Lymph # (Auto) George # (Auto) Seg Neutrophils % Seg Neuts % (Manual) Lymphocytes % (Manual) Nucleated RBC % Seg Neutrophils # Seg Neutrophils # Man Monocytes # (Manual) PT INR APTT D-Dimer Heparin Anti-Xa Level ABG pH ABG pO2 ABG HCO3 ABG O2 Saturation ABG Base Excess ABG Hemoglobin Oxyhemoglobin Sodium Potassium Chloride Carbon Dioxide BUN Creatinine Glucose POC Glucose 154 H 154 H 146 H Hemoglobin A1c Lactic Acid Calcium Phosphorus Magnesium Ferritin AST ALT Alkaline Phosphatase Lactate Dehydrogenase Troponin T C-Reactive Protein Total Protein Albumin LDL Cholesterol Direct Urine Creatinine Urine Total Protein Salicylates Acetaminophen Crossmatch 11/16/21 11/16/21 11/16/21 05:11 05:11 05:37 WBC 18.2 H RBC 2.92 L Hgb 8.3 L Hct 26.1 L MCH RDW 15.8 H Plt Count Lymph % (Auto) 6.3 L George % (Auto) 10.2 H Lymph # (Auto) George # (Auto) 1.9 H Seg Neutrophils % 81.7 H Seg Neuts % (Manual) Lymphocytes % (Manual) Nucleated RBC % Seg Neutrophils # 14.9 H Seg Neutrophils # Man Monocytes # (Manual) PT INR APTT D-Dimer Heparin Anti-Xa Level ABG pH ABG pO2 ABG HCO3 ABG O2 Saturation ABG Base Excess ABG Hemoglobin Oxyhemoglobin Sodium 146 H Potassium Chloride 108.0 H Carbon Dioxide BUN 25 H Creatinine Glucose 123 H POC Glucose 109 H Hemoglobin A1c Lactic Acid Calcium 7.8 L Phosphorus Magnesium Ferritin AST ALT Alkaline Phosphatase Lactate Dehydrogenase Troponin T C-Reactive Protein Total Protein Albumin LDL Cholesterol Direct Urine Creatinine Urine Total Protein Salicylates Acetaminophen Crossmatch 11/16/21 11/16/21 11/17/21 11:22 23:55 04:33 WBC RBC Hgb Hct MCH RDW Plt Count Lymph % (Auto) George % (Auto) Lymph # (Auto) George # (Auto) Seg Neutrophils % Seg Neuts % (Manual) Lymphocytes % (Manual) Nucleated RBC % Seg Neutrophils # Seg Neutrophils # Man Monocytes # (Manual) PT INR APTT D-Dimer Heparin Anti-Xa Level ABG pH ABG pO2 ABG HCO3 ABG O2 Saturation ABG Base Excess ABG Hemoglobin Oxyhemoglobin Sodium Potassium Chloride Carbon Dioxide BUN 20 H Creatinine Glucose POC Glucose 136 H 113 H Hemoglobin A1c Lactic Acid Calcium 7.5 L Phosphorus Magnesium Ferritin AST ALT Alkaline Phosphatase Lactate Dehydrogenase Troponin T C-Reactive Protein Total Protein Albumin LDL Cholesterol Direct Urine Creatinine Urine Total Protein Salicylates Acetaminophen Crossmatch 11/17/21 11/18/21 11/18/21 23:22 04:53 04:53 WBC 13.0 H RBC 2.99 L Hgb 8.5 L Hct 26.4 L MCH RDW Plt Count Lymph % (Auto) 9.5 L George % (Auto) 9.8 H Lymph # (Auto) George # (Auto) 1.3 H Seg Neutrophils % 78.3 H Seg Neuts % (Manual) Lymphocytes % (Manual) Nucleated RBC % Seg Neutrophils # 10.2 H Seg Neutrophils # Man Monocytes # (Manual) PT INR APTT D-Dimer Heparin Anti-Xa Level ABG pH ABG pO2 ABG HCO3 ABG O2 Saturation ABG Base Excess ABG Hemoglobin Oxyhemoglobin Sodium Potassium Chloride Carbon Dioxide BUN 18 H Creatinine Glucose 106 H POC Glucose 112 H Hemoglobin A1c Lactic Acid Calcium 8.1 L Phosphorus Magnesium Ferritin AST ALT Alkaline Phosphatase Lactate Dehydrogenase Troponin T C-Reactive Protein Total Protein Albumin LDL Cholesterol Direct Urine Creatinine Urine Total Protein Salicylates Acetaminophen Crossmatch 11/18/21 11/18/21 11/19/21 11:35 17:42 14:38 WBC RBC Hgb Hct MCH RDW Plt Count Lymph % (Auto) George % (Auto) Lymph # (Auto) George # (Auto) Seg Neutrophils % Seg Neuts % (Manual) Lymphocytes % (Manual) Nucleated RBC % Seg Neutrophils # Seg Neutrophils # Man Monocytes # (Manual) PT INR APTT D-Dimer Heparin Anti-Xa Level ABG pH ABG pO2 ABG HCO3 ABG O2 Saturation ABG Base Excess ABG Hemoglobin Oxyhemoglobin Sodium Potassium Chloride 97.5 L Carbon Dioxide 31 H BUN Creatinine Glucose 146 H POC Glucose 143 H 132 H Hemoglobin A1c Lactic Acid Calcium Phosphorus Magnesium 1.60 L Ferritin AST ALT Alkaline Phosphatase Lactate Dehydrogenase Troponin T C-Reactive Protein Total Protein Albumin LDL Cholesterol Direct Urine Creatinine Urine Total Protein Salicylates Acetaminophen Crossmatch 11/19/21 11/19/21 11/20/21 16:24 23:58 07:42 WBC RBC 3.01 L Hgb 8.6 L Hct 26.7 L MCH RDW 15.4 H Plt Count Lymph % (Auto) George % (Auto) Lymph # (Auto) George # (Auto) Seg Neutrophils % Seg Neuts % (Manual) Lymphocytes % (Manual) Nucleated RBC % Seg Neutrophils # Seg Neutrophils # Man Monocytes # (Manual) PT INR APTT D-Dimer Heparin Anti-Xa Level ABG pH ABG pO2 ABG HCO3 ABG O2 Saturation ABG Base Excess ABG Hemoglobin Oxyhemoglobin Sodium Potassium Chloride Carbon Dioxide BUN Creatinine Glucose POC Glucose 129 H 125 H Hemoglobin A1c Lactic Acid Calcium Phosphorus Magnesium Ferritin AST ALT Alkaline Phosphatase Lactate Dehydrogenase Troponin T C-Reactive Protein Total Protein Albumin LDL Cholesterol Direct Urine Creatinine Urine Total Protein Salicylates Acetaminophen Crossmatch 11/20/21 11/20/21 11/20/21 07:42 11:25 22:59 WBC RBC Hgb Hct MCH RDW Plt Count Lymph % (Auto) George % (Auto) Lymph # (Auto) George # (Auto) Seg Neutrophils % Seg Neuts % (Manual) Lymphocytes % (Manual) Nucleated RBC % Seg Neutrophils # Seg Neutrophils # Man Monocytes # (Manual) PT INR APTT D-Dimer Heparin Anti-Xa Level ABG pH ABG pO2 ABG HCO3 ABG O2 Saturation ABG Base Excess ABG Hemoglobin Oxyhemoglobin Sodium Potassium Chloride Carbon Dioxide 31 H BUN Creatinine Glucose POC Glucose 116 H 113 H Hemoglobin A1c Lactic Acid Calcium Phosphorus Magnesium Ferritin AST ALT Alkaline Phosphatase Lactate Dehydrogenase Troponin T C-Reactive Protein Total Protein Albumin LDL Cholesterol Direct Urine Creatinine Urine Total Protein Salicylates Acetaminophen Crossmatch 11/21/21 11/22/21 11/22/21 10:50 05:10 16:12 WBC RBC Hgb Hct MCH RDW Plt Count Lymph % (Auto) George % (Auto) Lymph # (Auto) George # (Auto) Seg Neutrophils % Seg Neuts % (Manual) Lymphocytes % (Manual) Nucleated RBC % Seg Neutrophils # Seg Neutrophils # Man Monocytes # (Manual) PT INR APTT D-Dimer Heparin Anti-Xa Level ABG pH ABG pO2 ABG HCO3 ABG O2 Saturation ABG Base Excess ABG Hemoglobin Oxyhemoglobin Sodium Potassium Chloride Carbon Dioxide 32 H BUN Creatinine Glucose POC Glucose 156 H 110 H Hemoglobin A1c Lactic Acid Calcium 8.1 L Phosphorus Magnesium Ferritin AST ALT Alkaline Phosphatase Lactate Dehydrogenase Troponin T C-Reactive Protein Total Protein Albumin LDL Cholesterol Direct Urine Creatinine Urine Total Protein Salicylates Acetaminophen Crossmatch 11/23/21 11/23/21 11/23/21 07:18 07:18 11:45 WBC RBC 3.23 L Hgb 9.1 L Hct 28.5 L MCH RDW 15.6 H Plt Count Lymph % (Auto) George % (Auto) Lymph # (Auto) George # (Auto) Seg Neutrophils % Seg Neuts % (Manual) Lymphocytes % (Manual) Nucleated RBC % Seg Neutrophils # Seg Neutrophils # Man Monocytes # (Manual) PT INR APTT D-Dimer Heparin Anti-Xa Level ABG pH ABG pO2 ABG HCO3 ABG O2 Saturation ABG Base Excess ABG Hemoglobin Oxyhemoglobin Sodium Potassium 3.3 L Chloride 96.8 L Carbon Dioxide 32 H BUN Creatinine Glucose POC Glucose 140 H Hemoglobin A1c Lactic Acid Calcium Phosphorus Magnesium Ferritin AST ALT Alkaline Phosphatase Lactate Dehydrogenase Troponin T C-Reactive Protein Total Protein Albumin LDL Cholesterol Direct Urine Creatinine Urine Total Protein Salicylates Acetaminophen Crossmatch 11/23/21 11/23/21 11/24/21 16:40 23:45 07:19 WBC RBC 3.12 L Hgb 9.3 L Hct 27.2 L MCH RDW 16.0 H Plt Count Lymph % (Auto) 10.3 L George % (Auto) 10.0 H Lymph # (Auto) 1.1 L George # (Auto) 1.1 H Seg Neutrophils % 75.2 H Seg Neuts % (Manual) Lymphocytes % (Manual) Nucleated RBC % Seg Neutrophils # 7.9 H Seg Neutrophils # Man Monocytes # (Manual) PT INR APTT D-Dimer Heparin Anti-Xa Level ABG pH ABG pO2 ABG HCO3 ABG O2 Saturation ABG Base Excess ABG Hemoglobin Oxyhemoglobin Sodium Potassium Chloride Carbon Dioxide BUN Creatinine Glucose POC Glucose 140 H 138 H Hemoglobin A1c Lactic Acid Calcium Phosphorus Magnesium Ferritin AST ALT Alkaline Phosphatase Lactate Dehydrogenase Troponin T C-Reactive Protein Total Protein Albumin LDL Cholesterol Direct Urine Creatinine Urine Total Protein Salicylates Acetaminophen Crossmatch 11/24/21 11/24/21 07:19 11:49 WBC RBC Hgb Hct MCH RDW Plt Count Lymph % (Auto) George % (Auto) Lymph # (Auto) George # (Auto) Seg Neutrophils % Seg Neuts % (Manual) Lymphocytes % (Manual) Nucleated RBC % Seg Neutrophils # Seg Neutrophils # Man Monocytes # (Manual) PT INR APTT D-Dimer Heparin Anti-Xa Level ABG pH ABG pO2 ABG HCO3 ABG O2 Saturation ABG Base Excess ABG Hemoglobin Oxyhemoglobin Sodium Potassium 3.2 L Chloride 96.7 L Carbon Dioxide BUN Creatinine Glucose 125 H POC Glucose 118 H Hemoglobin A1c Lactic Acid Calcium Phosphorus Magnesium Ferritin AST ALT Alkaline Phosphatase Lactate Dehydrogenase Troponin T C-Reactive Protein Total Protein Albumin LDL Cholesterol Direct Urine Creatinine Urine Total Protein Salicylates Acetaminophen Crossmatch Allied health notes reviewed: nursing
--- NOTE | 2021-11-24 15:26 | Progress Note ---
Assessment and Plan Patient is a 66-year-old female with unknown past medical history brought into the ED following outside of hospital cardiac arrest thought to be PEA with thought to have downtime of 7 to 9 minutes however details are unclear S/P PEA cardiopulmonary arrest-No longer on pressors Acute hypoxic respiratory failure-pulm following Septic shock Aspiration pneumonia Atrial flutter w/ RVR- currently sinus rhythm Pneumothorax- s/p CT Acute DVT-on Heparin gtt Hypokalemia Transaminitis Retroperitoneal Hematoma Echo 10/30/2021-technically difficult study due to body habitus. EF 25 to 30%. Right ventricular systolic function is normal. No pericardial effusion Plan: Continue metoprolol 100 mg p.o. twice daily, aldactone 25mg PO QD, and losartan 25 mg p.o. daily Patient for s/p IVC filter No anticoagulation due to contraindication with recent hematoma and current IVC filter LifeVest pending Patient requires ischemic eval however due to the current O2 requirements unable to do as inpatient Will plan for outpatient ischemic eval Discussed plan of care with patient who verbalized acknowledgment understanding Cardiac status otherwise stable. Will see as needed Patient should follow-up with Dr. Cueto, [facility] operations and maintenance specialist, 12/09/2021 at 2 PM at our [place] location. Phone #[phone] Patient seen in conjunction with Dr. Cueto who agrees with this plan of care - Patient Problems (1) Cardiopulmonary arrest Current Visit: Yes Status: Acute (2) Hypokalemia Current Visit: Yes Status: Acute (3) Transaminitis Current Visit: Yes Status: Acute (4) Aspiration pneumonia Current Visit: Yes Status: Acute (5) Acute hypoxemic respiratory failure Current Visit: Yes Status: Acute (6) Septic shock Current Visit: Yes Status: Acute (7) Toxic metabolic encephalopathy Current Visit: Yes Status: Acute (8) Shock liver Current Visit: Yes Status: Acute Subjective Date of service: 11/24/21 Principal diagnosis: AHRF; Cardiac arrest; R. pneumothorax; pneumonia; AMS; DVT's; SIERRA; Obesity Interval history: Patient resting in bed in no acute distress. Patient sinus rate trending 80s-90s Objective Vital Signs Temp Pulse Pulse Resp BP Pulse Ox 11/24/21 11:50 98.5 F 67 18 136/75 100 11/24/21 11:35 72 99 11/24/21 10:00 99 11/24/21 08:08 97.6 F 76 18 145/74 98 11/24/21 06:28 98 11/24/21 05:21 67 131/76 11/24/21 03:59 67 20 100 11/24/21 03:55 98.6 F 67 19 131/76 99 11/24/21 02:06 67 23 97 11/24/21 00:53 73 11/23/21 23:47 98.9 F 73 18 145/73 99 11/23/21 23:00 99 11/23/21 20:45 100 11/23/21 19:53 98.6 F 73 19 135/80 98 11/23/21 16:44 98.7 F 96 H 18 128/76 99 - Physical Examination General: No Apparent Distress HEENT: Positive: EOMI, Normocephaly Neck: Positive: trachea midline. Negative: JVD/HJR Cardiac: Positive: Reg Rate and Rhythm Lungs: Positive: Decreased Breath Sounds Neuro: Positive: Grossly Intact Abdomen: Positive: Soft Skin: Negative: Rash Musculoskeletal: No Pain Extremities: Present: upper extr. pulses, edema, warm - Labs and Meds CBC 11/24/21 Range/Units 07:19 WBC 10.6 (4.5-11.0) K/mm3 RBC 3.12 L (3.65-5.03) M/mm3 Hgb 9.3 L (10.1-14.3) gm/dl Hct 27.2 L (30.3-42.9) % Plt Count 255 (140-440) K/mm3 Lymph # (Auto) 1.1 L (1.2-5.4) K/mm3 [place] # (Auto) 1.1 H (0.0-0.8) K/mm3 Eos # (Auto) 0.4 (0.0-0.4) K/mm3 Baso # (Auto) 0.1 (0.0-0.1) K/mm3 Comprehensive Metabolic Panel 11/24/21 Range/Units 07:19 Sodium 138 (137-145) mmol/L Potassium 3.2 L (3.6-5.0) mmol/L Chloride 96.7 L (98-107) mmol/L Carbon Dioxide 30 (22-30) mmol/L BUN 10 (7-17) mg/dL Creatinine 1.0 (0.6-1.2) mg/dL Glucose 125 H (65-100) mg/dL Calcium 8.7 (8.4-10.2) mg/dL - Imaging and Cardiology EKG: report reviewed, image reviewed Echo: report reviewed - Telemetry EKG Rhythm: Sinus Rhythm - EKG Sinus rhythms and dysrhythmias: sinus rhythm Ventricular dysrhythmias: ventricular premature com Repolarization changes or abnormalities: nonspecific abnormality, ST segment, and/or T wave Myocardial infarction: septal TN (old age or ind - Allied health notes Allied health notes reviewed: nursing
[2021-11-25] MEDS: INSULIN LISPRO 100 UNIT/ML SUB-Q SCH ×3 (00:12→17:20)
[2021-11-25] MEDS: hydrALAZINE 25 MG TAB PO SCH ×3 (06:46→21:51)
[2021-11-25] MEDS: SENNOSIDES/DOCUSATE SODIUM 8.6/50 MG TAB PO SCH ×2 (08:22→10:00)
[2021-11-25] MEDS: METOPROLOL TARTRATE 100 MG TAB PO SCH ×2 (08:22→21:50)
[2021-11-25] MEDS: FAMOTIDINE 10 MG TAB PO SCH ×3 (08:22→21:45)
[2021-11-25] MEDS: DOCUSATE SODIUM 100 MG CAP PO SCH ×2 (08:22→10:00)
[2021-11-25] MEDS: FUROSEMIDE 20 MG/2 ML INJ IV SCH ×3 (08:23→21:37)
[2021-11-25] MEDS: LOSARTAN 25 MG TAB PO SCH ×3 (08:23→21:48)
[2021-11-25] MEDS: SPIRONOLACTONE 25 MG TAB PO SCH ×2 (08:24→10:00)
[2021-11-25] MEDS: POLYETHYLENE GLYCOL 3350 17 GM POWDER PO PRN (08:30)
--- NOTE | 2021-11-25 10:19 | Progress Note ---
Assessment and Plan Assessment and plan: 66 YO Female with Obesity was attending [facility] services when the patient collapsed and lost consciousness. Witnesses began CPR. EMS was notified and upon arrival the patient was found to be in distress without perfusing cardiac rhythm. Patient initiated on ACLS protocol and subsequently intubated in the field and transported to ED. The patient regained spontaneous circulation during transport. She was found to have acute hypoxemic respiratory failure, septic shock suspected secondary to aspiration pneumonia, metabolic acidosis, toxic metabolic encephalopathy, shock liver, and cardiac arrest with return of perfusing cardiac rhythm after initiation of ACLS protocol. Patient initiated on sepsis protocol as well as pneumonia protocol. Patient admitted to ICU. Patient improved, extubated on 11/11 and transferred to floor on 11/19. s/p cardiac arrest, collapse at [facility], HFrEF, shock/hypotension resolved Atrial fibrillation/atrial flutter -Cardiac arrest and collapse at [facility] with ROSC -Cardiology consulted, appreciate recommendations - S/p Cardizem gtt- d/c due to low EF; now on PO Amio -s/p vasopressor support with levophed -Echocardiogram shows left ventricular systolic function severely decreased, LVEF 25 to 30%, no pericardial effusion -proBNP 5622 -Continue Lasix 20 mg twice daily, BB, spironolactone, losartan -No significant volume overload clinically Acute hypoxic respiratory failure, right pneumothorax, Angioedema (resolved), pulmonary edema -[facility] consulted, appreciate recommendations -Intubated on 10/29 and extubated on 11/11 -Bipap q HS and prn, at high risk for KOLBY with morbid obesity -NC during day -s/p right chest tube for pneumothorax -s/p steroids for angioedema -On Lasix for pulmonary edema. Transaminitis likely shocked liver - resolved Acute kidney injury likely secondary to vasomotor nephropathy, hypernatremia -Nephrology consulted, appreciate recommendations -Krishna replaced 11/05 urinary retention -FeNa 0.05 indicating pre-renal -SIERRA and hyponatremia resolved. Creatinine 1.0 on Lasix IV Shock cardiogenicsuspected sepsis -Fever was as high as 102 with a leukocytosis Blood, urine and sputum cultures negative -COVID-19 PCR negative -S/p empiric antibiotic therapy for possible pneumonia with Rocephin and azithromycin () -S/p Levophed gtt for hypotension -Fever and leukocytosis resolved -Monitor WBC and temperature curve Acute Metabolic encephalopathy, agitation/anxiety -Etiology likely from a cardiac arrest, shock and cerebral hypoperfusion CT head no acute focal parenchymal lesion in the brain -Neurology consulted, appreciate recommendations -EEG and MRI noted, Neuro recommend to cut down on sedation as possible Mental status significantly improved, currently fairly alert and oriented. Answers appropriately. Acute DVT in the left posterior tibial vein and bilateral peroneal veins, Anemia, retroperitoneal bleed -D-dimer greater than 10,000 -CTA chest with no evidence of PE -Bilateral lower extremity ultrasound positive for DVT -Heparin gtt on hold d/t anemia, received PRBC x4 -vasuclar surgery consulted, appreciate recommendations -recommended multiphasic CT angio of the abdomen and pelvis with and without contrast if H/H drops and did not recommend IVC filter at this time as the DVTs are infrapopliteal and recommends a follow-up DVT study weekly for 2 weeks. Repeat venous duplex ultrasound on 11/21 showed progression of left peroneal DVT extending into popliteal vein. Vascular surgery completed IVC filter placement on 11/22. -Trend CBC -SCDs to BLE while in bed -Transfuse hemoglobin less than 7 -Monitor for signs of bleeding -Hemoglobin stable, 8.6 Hypertension, not able be controlled Increase losartan 200 mg daily and add hydralazine as needed. Hyperglycemia ,resolved) -Avoid hypoglycemia -Hbg A1C 6.7 -SSI and lantus q hs (titrate as needed) -Accu-Cheks q. 6 Morbid obesity High risk for KOLBY On nightly BiPAP Deconditioning PT/OT Hospital Course to Date: 10/30: Intubated and sedated, on fentanyl gtt. Open eyes spontaneously but does not follow any commands. On vasopressors, titrate as tolerated for MAP above 65. Patient febrile overnight, continue empiric IV Abx, culture data and COVID PCR pending. Patient is also s/p CT placement due to spontaneous pneumothorax. 2D echo is pending and Cardiology is consulted. 10/31: Patient remains intubated and following commands. Levophed drip stopped and potassium repleted. Patient started on tube feeding. Remains in soft bilateral restraints. 11/01: RN noted ST changes on BSM and 12 lead EKG obtained which showed ST. Given Ativan 1mg for agitation as she is maxed on fentanyl drip and IV push fentanyl did not seem to help. Patient was started on CPAP this morning by RT but remained on fentanyl drip and was having periods of apnea. Plan was to retry CPAP again in the p.m. with sedation off. 11/02: Rate increased r/t hypercapnea on ABG, sedation reduced. Given kionex for hyperkalemia and was started on levophed overnight for hypotension. 11/03: Overnight patient had tachycardia and was given Cardizem and Lopressor. Lopressor was repeated in the a.m. due to tachycardia. Patient will be started on amiodarone with a bolus per cardiology. Patient started on normal saline per liter per [facility] and steroids for angioedema. Noted to have bright red blood when suctioned from oh ETT. Remains on heparin drip as H/H is stable for now. Will reevaluate. Fentanyl drip was restarted last night due to agitation. Dr. Flores updated family today 11/04: Patient was sedated on fentanyl however off sedation is able to follow commands, a.m. labs completed in the p.m. and show hyperkalemia with increased renal function studies. Nephrology, neurology consulted by [facility]. Given Kayexalate, insulin and D50 for hyperkalemia. Patient remains on amiodarone. 11/05: Patient needed to be sedated on fentanyl again to today. overnight krishna was replaced. Hyperkalemia->given kionex 60 for 5.6. Repeat K 6-> Dr. Grant informed and requested bumex, kionex, insulin, d50, calcium gluconate and sodium bicarb with repeat BMP in 2 hours which were placed. HR remains elevated. 11/06: Patient remained in atrial fibrillation/atrial flutter with heart rate in the 150s despite being on amnio drip and was given amnio bolus, Cardizem bolus and started on Cardizem drip by cardiology. Patient is on beta-blockers p.o. scheduled and to feedings changed to Nepro. Kayexalate was given in the morning by nephrology due to hyperkalemia. 11/07: Patient is only responsive to mild stimuli, precedex added in an attempt to wean off fentanyl gtt to better assess her mental status. Neurology also on consult, pending MRI and EEG. Patient remains in Aflutter this am, HR in the 80 to 90s, still on amiodarone and heparin gtt. 11/08: Fentanyl gtt is off, only on precedex gtt. Patient is still not following any commands. MRI brain and EEG completed. Neuro recommendations noted, sedatives agents decreased. FWF added for hypernatremia and low K repleted, repe at labs ordered. Placed a call and spoke with patient's daughter, Eva Brown . She was updated on patient's conditions and status. All questions and concerns were voiced at this time. 11/09: Patient is awake and alert this am, following commands and appropriate. Remains on precedex gtt, plan for possible PST today. Hypertensive overnight, meds adjusted by Cardio and PRN Hydralazine added for SBP greater than 160. CT dislodged overnight, CXR is stable with no significant change. F/U CXR in the am. Patient's daughter, Eva Brown, visited with patient. She was updated on patient's status and goal of care for today. All questions and concerns were voiced at this time. 11/10: Mentation remains intact, still on precedex gtt. This am CXR noted still with fluid overload s/p X1 dose of IV lasix, good response from IV lasix overnight. Hypernatremia improved, D5W d/dayday. Still with persistent hypokalemia, continue electrolytes replacement and frequent lab check. Daily IV lasix and aldactone added by Cardio. Patient is also with persistent low grade fevers overnight, leukocytosis with mild improvement this am. Will get a repeat sputum culture, hold off on IV abx for now. Consider ID consult if fevers and leukocytosis persist. Patient tolerated PST X4hrs yesterday. PST again today, plan to wean to extubate if tolerated. 11/11: IAM overnight. Off precedex gtt and tolerated PST this am. Plan to wean to extubate today. Additional IV lasix given, plan to keep patient at a net negative balance for better lung compliance. F/U CXR in the am. K improved this am, repeat BMP this afternoon since diuresing. Remains with low grade fevers, leukocytosis downtrending, will continue to monitor. Speech/PT/OT ordered 11/12: S/p extubation, now stable on 3L NC. This am CXR noted with no significant changes, lasix changed to IV X4days BID. Drop in H&H this am, and Lt. flank ecchymosis noted. Heparin gtt on hold for now and orders placed for 1 unit of PRBCs and Ct Abd/Pelvis w/o con to r/o retroperitoneal bleed. Pending speech swallow eval, keep patient NPO for now. Patient is stable for IMCU status 11/13: Patient with increased WOB and tachycardia this am, patient was placed on Bipap and precedex gtt was resumed. CXR with mild improvement. CT Abd/Pelvis also reviewed large hematomas noted at the Lt. retroperitoneum and left posterior lateral abdominal wall. Heparin gtt is already on hold, patient is hemodynamically stable. Vascular Surgery consulted for possible IVC filter eval. Patient s/p 2units of PRBCs, will continue to trend H&H and transfuse if hbg is less than 7. Worsening renal function this am, IF diuretic on hold for now. Patient is also febrile with spike in wbcs most likely reactive to bleed, will panculture and hold off on IV Abx for now. Patient also failed speech bedside swallow eval yesterday, NGT in placed plan to resume enteral nutrition 11/14: Patient had bilateral lower extremity Doppler ultrasound and vascular surgery has recommended multiphasic CT angio of the abdomen and pelvis with and without contrast if H/H drops and does not recommend IVC filter at this time as the DVTs are infrapopliteal and recommends a DVT study weekly for 2 weeks. FWF 250 q4 ml per nephro. Started on as needed Xanax and p.o. amiodarone. She did not pass her ST evaluation today. Will be transferred to [facility]. 11/15: Resting comfortably on encounter. Speech cleared for pureed diet. Remains on 3l satting 98 % on bedside encounter. Does not appear to be in respiratory distress. Will continue to hold AC, No ivc filter planned at this time. qweekly doppler to monitor for migration of DVT per vascular. If demonstrated, will consider IVC filter. CBC ordered for tomorrow, will continue monitoring in light of retroperitoneal hematoma. FWF increased by nephrology to 350cc q4hr d/t hypernatremia. UOP/renal function both improved. D/w cardiology, will continue amiodorone an additional 24hrs. Plan to change dosing of metoprolol. Continue to wean off of precedex. Continue xanax scheduled for anxiety. physical therapy recs noted, fernanda / ltac will discuss with CM. Continue IMCU monitoring. 11/16: Pulmonary congestion this AM. CXR ordered. Lasix 40 mg IV x 1 order this AM. Will monitor for 24 hrs. potential downgrade to medical floor tomorrow. 11/17: Persisting pulmonary congestion, was on bipap overnight into this AM. Will order additional lasix 40 mg IV x 2. CXR ordered for AM. Possible downgrade to floor tomorrow. Anticipate d/c sunday. 11/18: Patient seen and examined, continue weaning, will continue diuresis BID, discussed with daughter. 11/19: Patient seen and examined this morning doing well no acute distress noted. Lasix was increased to twice daily to 20 mg IV. Clinically improving. Patient will be transferred to telemetry today can be switched to Lasix p.o. twice daily in a.m. She has her weekly Doppler of lower extremity tomorrow vascular is following for this. She was taken off anticoagulation secondary to retroperitoneal bleed., The anticoagulation was started initially for atrial fibrillation and an infrapopliteal DVT. During her hospital stay she had a prolonged ventilator management and was successfully weaned off. She also received a total of 4 units of packed red blood cell. Hemoglobin has remained stable. Anticipate discharge in next 48 hours if continues to clinically stay stable. : Transferred from ICU on 11/19. Progressive improving. Currently awake and oriented. O2 weaned to 4 L. Hemodynamically stable. BP control being optimized. MiraLAX for constipation. Hemoglobin stable on the heparin infusion, being monitored closely with history of retroperitoneal bleed. 11/21: Patient remains mostly bedridden. She is awake and oriented on 2 L of O2. Repeat ultrasound showed extension of left peroneal DVT into popliteal vein. Heparin was discontinued for significant retroperitoneal bleed and off anticoagulation since. Vascular surgery plan for placement of IVC filter tomorrow. Patient is chest pains, palpitations, hemoptysis. She has some cough. Left lower extremity pain likely from DVT better today. Discussed with the patient, nursing staff and vascular surgery. 11/22: The infrapopliteal vein thrombosis has propagated to the left popliteal vein. Vascular surgery to perform IVC filter placement today. 11/23: Vascular surgery placed IVC filter yesterday. Continue metoprolol 100 mg p.o. twice daily, Aldactone 25 mg p.o. daily and losartan 25 mg p.o. daily. Patient still requiring BiPAP (IPAP18, EPAP8) with FiO2 of 30%. Continue to wean oxygen per pulmonary recommendations. Nurse reports patient is having vaginal bleeding. We will check serial CBC and pelvic ultrasound 3: I discussed with cardiology yesterday the need for a LifeVest. LifeVest is ordered and pending. Patient is s/p IVC filter placement. Continue metoprolol 100 mg p.o. twice daily, Aldactone 25 mg p.o. daily and losartan 25 mg p.o. da amy. Patient still requiring BiPAP (IPAP18, EPAP8) with FiO2 of 30%. Continue to wean oxygen per pulmonary recommendations. No further reports of vaginal bleeding. Pelvic ultrasound negative 11/25: Awaiting for LifeVest. Patient is s/p IVC filter placement. Continue metoprolol 100 mg p.o. twice daily, Aldactone 25 mg p.o. daily and losartan 25 mg p.o. daily. Patient still requiring BiPAP (IPAP18, EPAP8) with FiO2 of 30%. Continue to wean oxygen per pulmonary recommendations. History Interval history: No new issues overnight. Hospitalist Physical - Constitutional Vitals: Temp Pulse Resp BP Pulse Ox 98.4 F 78 18 161/92 98 11/25/21 07:45 11/25/21 08:24 11/25/21 07:44 11/25/21 08:24 11/25/21 09:36 General appearance: Present: no acute distress, obese (Morbidly obese) - EENT Eyes: Present: PERRL, EOM intact ENT: hearing intact, clear oral mucosa, dentition normal - Neck Neck: Present: supple, normal ROM - Respiratory Respiratory effort: normal Respiratory: bilateral: CTA - Cardiovascular Rhythm: regular Heart Sounds: Present: S1 & S2. Absent: gallop, rub - Extremities Extremities: no ischemia, No edema, Full ROM - Abdominal General gastrointestinal: soft, non-tender, non-distended, normal bowel sounds - Integumentary Integumentary: Present: clear, warm, dry - Neurologic Neurologic: CNII-XII intact, moves all extremities HEART Score - HEART Score Troponin: Troponin T 1.150 ng/mL (0.00-0.029) H* D 10/29/21 22:34 Results - Labs CBC & Chem 7: 11/24/21 07:19 11/24/21 07:19 Labs: Laboratory Last Values WBC 10.6 K/mm3 (4.5-11.0) 11/24/21 07:19 RBC 3.12 M/mm3 (3.65-5.03) L 11/24/21 07:19 Hgb 9.3 gm/dl (10.1-14.3) L 11/24/21 07:19 Hct 27.2 % (30.3-42.9) L 11/24/21 07:19 MCV 87 fl (79-97) 11/24/21 07:19 MCH 30 pg (28-32) 11/24/21 07:19 MCHC 34 % (30-34) 11/24/21 07:19 RDW 16.0 % (13.2-15.2) H 11/24/21 07:19 Plt Count 255 K/mm3 (140-440) 11/24/21 07:19 Lymph % (Auto) 10.3 % (13.4-35.0) L 11/24/21 07:19 Schleicher % (Auto) 10.0 % (0.0-7.3) H 11/24/21 07:19 Eos % (Auto) 3.7 % (0.0-4.3) 11/24/21 07:19 Baso % (Auto) 0.8 % (0.0-1.8) 11/24/21 07:19 Lymph # (Auto) 1.1 K/mm3 (1.2-5.4) L 11/24/21 07:19 Schleicher # (Auto) 1.1 K/mm3 (0.0-0.8) H 11/24/21 07:19 Eos # (Auto) 0.4 K/mm3 (0.0-0.4) 11/24/21 07:19 Baso # (Auto) 0.1 K/mm3 (0.0-0.1) 11/24/21 07:19 Add Manual Diff Complete 11/07/21 06:30 Total Counted 100 11/07/21 06:30 Seg Neutrophils % 75.2 % (40.0-70.0) H 11/24/21 07:19 Seg Neuts % (Manual) 77.0 % (40.0-70.0) H 11/07/21 06:30 Band Neutrophils % 1.0 % 11/07/21 06:30 Lymphocytes % (Manual) 11.0 % (13.4-35.0) L 11/07/21 06:30 Reactive Lymphs % (Man) 3.0 % 11/07/21 06:30 Monocytes % (Manual) 2.0 % (0.0-7.3) 11/07/21 06:30 Eosinophils % (Manual) 0 % (0.0-4.3) 11/07/21 06:30 Basophils % (Manual) 0 % (0.0-1.8) 11/07/21 06:30 Metamyelocytes % 1.0 % 11/07/21 06:30 Myelocytes % 5.0 % 11/07/21 06:30 Promyelocytes % 0 % 11/07/21 06:30 Blast Cells % 0 % 11/07/21 06:30 Nucleated RBC % 2.0 % (0.0-0.9) H 11/07/21 06:30 Seg Neutrophils # 7.9 K/mm3 (1.8-7.7) H 11/24/21 07:19 Seg Neutrophils # Man 12.3 K/mm3 (1.8-7.7) H 11/07/21 06:30 Band Neutrophils # 0.2 K/mm3 11/07/21 06:30 Lymphocytes # (Manual) 1.8 K/mm3 (1.2-5.4) 11/07/21 06:30 Abs React Lymphs (Man) 0.5 K/mm3 11/07/21 06:30 Monocytes # (Manual) 0.3 K/mm3 (0.0-0.8) 11/07/21 06:30 Eosinophils # (Manual) 0.0 K/mm3 (0.0-0.4) 11/07/21 06:30 Basophils # (Manual) 0.0 K/mm3 (0.0-0.1) 11/07/21 06:30 Metamyelocytes # 0.2 K/mm3 11/07/21 06:30 Myelocytes # 0.8 K/mm3 11/07/21 06:30 Promyelocytes # 0.0 K/mm3 11/07/21 06:30 Blast Cells # 0.0 K/mm3 11/07/21 06:30 WBC Morphology Not Reportable 11/07/21 06:30 Hypersegmented Neuts Not Reportable 11/07/21 06:30 Hyposegmented Neuts Not Reportable 11/07/21 06:30 Hypogranular Neuts Not Reportable 11/07/21 06:30 Smudge Cells Not Reportable 11/07/21 06:30 Toxic Granulation Not Reportable 11/07/21 06:30 Toxic Vacuolation Not Reportable 11/07/21 06:30 Dohle Bodies Not Reportable 11/07/21 06:30 Pelger-Huet Anomaly Not Reportable 11/07/21 06:30 Manny Rods Not Reportable 11/07/21 06:30 Platelet Estimate Consistent w auto 11/07/21 06:30 Clumped Platelets Not Reportable 11/07/21 06:30 Plt Clumps, EDTA Not Reportable 11/07/21 06:30 Large Platelets 1+ 11/07/21 06:30 Giant Platelets Not Reportable 11/07/21 06:30 Platelet Satelliting Not Reportable 11/07/21 06:30 Plt Morphology Comment Not Reportable 11/07/21 06:30 RBC Morphology Not Reportable 11/07/21 06:30 Dimorphic RBCs Not Reportable 11/07/21 06:30 Polychromasia Not Reportable 11/07/21 06:30 Hypochromasia 1+ 11/07/21 06:30 Poikilocytosis Not Reportable 11/07/21 06:30 Anisocytosis Not Reportable 11/07/21 06:30 Microcytosis Not Reportable 11/07/21 06:30 Macrocytosis Not Reportable 11/07/21 06:30 Spherocytes 1+ 11/07/21 06:30 Pappenheimer Bodies Not Reportable 11/07/21 06:30 Sickle Cells Not Reportable 11/07/21 06:30 Target Cells 1+ 11/07/21 06:30 Tear Drop Cells Not Reportable 11/07/21 06:30 Ovalocytes Not Reportable 11/07/21 06:30 Helmet Cells Not Reportable 11/07/21 06:30 [place] Bodies Not Reportable 11/07/21 06:30 [place] Rings Not Reportable 11/07/21 06:30 [place] Cells Not Reportable 11/07/21 06:30 Bite Cells Not Reportable 11/07/21 06:30 Crenated Cell Not Reportable 11/07/21 06:30 Elliptocytes Not Reportable 11/07/21 06:30 Acanthocytes (Spur) Not Reportable 11/07/21 06:30 Rouleaux Not Reportable 11/07/21 06:30 Hemoglobin C Crystals Not Reportable 11/07/21 06:30 Schistocytes Not Reportable 11/07/21 06:30 Malaria parasites Not Reportable 11/07/21 06:30 Magdy Bodies Not Reportable 11/07/21 06:30 Hem Pathologist Commnt No 11/07/21 06:30 PT 17.2 Sec. (12.2-14.9) H 10/30/21 16:30 INR 1.27 (0.87-1.13) H 10/30/21 16:30 APTT 44.4 Sec. (24.2-36.6) H 10/30/21 16:30 D-Dimer > 01760 ng/mlDDU (0-234) H 10/30/21 Unknown Heparin Anti-Xa Level 0.62 U.I./ml (0.3-0.7) 11/12/21 03:30 ABG pH 7.475 pH Units (7.350-7.450) H 11/11/21 13:53 ABG pCO2 45.0 mm Hg 11/11/21 13:53 ABG pO2 64.1 mm Hg (80.0-90.0) L 11/11/21 13:53 ABG HCO3 32.4 mmol/L (20.0-26.0) H 11/11/21 13:53 ABG O2 Saturation 96.3 % (95.0-99.0) 11/11/21 13:53 ABG O2 Content 10.1 (0.0-44) 11/11/21 13:53 ABG Base Excess 8.0 mmol/L (-2.0-3.0) H 11/11/21 13:53 ABG Hemoglobin 7.6 gm/dl (12.0-16.0) L 11/11/21 13:53 ABG Carboxyhemoglobin 1.8 % (0.0-5.0) 11/11/21 13:53 ABG Methemoglobin 0.5 % (0.0-1.5) 11/11/21 13:53 Oxyhemoglobin 94.0 % (95.0-99.0) L 11/11/21 13:53 FiO2 32 % 11/11/21 13:53 Sodium 138 mmol/L (137-145) 11/24/21 07:19 Potassium 3.2 mmol/L (3.6-5.0) L 11/24/21 07:19 Chloride 96.7 mmol/L (98-107) L 11/24/21 07:19 Carbon Dioxide 30 mmol/L (22-30) 11/24/21 07:19 Anion Gap 15 mmol/L 11/24/21 07:19 BUN 10 mg/dL (7-17) 11/24/21 07:19 Creatinine 1.0 mg/dL (0.6-1.2) 11/24/21 07:19 Estimated GFR > 60 ml/min 11/24/21 07:19 BUN/Creatinine Ratio 10 % 11/24/21 07:19 Glucose 125 mg/dL (65-100) H 11/24/21 07:19 POC Glucose 97 mg/dL (70-105) 11/24/21 23:07 Hemoglobin A1c 6.7 % (4-6) H 10/31/21 04:30 Lactic Acid 0.70 mmol/L (0.7-2.0) 10/31/21 15:45 Calcium 8.7 mg/dL (8.4-10.2) 11/24/21 07:19 Phosphorus 3.10 mg/dL (2.5-4.5) 11/19/21 14:38 Magnesium 1.60 mg/dL (1.7-2.3) L 11/19/21 14:38 Ferritin 208.4 ng/mL (10.0-200.0) H 10/30/21 Unknown Total Bilirubin < 0.20 mg/dL (0.1-1.2) 11/06/21 02:35 AST 21 units/L (5-40) 11/06/21 02:35 ALT 77 units/L (7-56) H 11/06/21 02:35 Alkaline Phosphatase 84 units/L (35-129) 11/06/21 02:35 Ammonia 31.0 umol/L (25-60) 10/29/21 15:10 Lactate Dehydrogenase 469 units/L (91-180) H 10/30/21 Unknown Troponin T 1.150 ng/mL (0.00-0.029) H* D 10/29/21 22:34 C-Reactive Protein 13.40 mg/dL (0.00-1.30) H 10/30/21 Unknown Total Protein 6.3 g/dL (6.3-8.2) 11/06/21 02:35 Albumin 3.0 g/dL (3.9-5) L 11/06/21 02:35 Albumin/Globulin Ratio 0.9 % 11/06/21 02:35 Triglycerides 68 mg/dL (2-149) 10/29/21 19:40 Cholesterol 98 mg/dL (50-199) 10/29/21 19:40 LDL Cholesterol Direct 43 mg/dL (50-130) L 10/29/21 19:40 HDL Cholesterol 50 mg/dL (40-59) 10/29/21 19:40 Cholesterol/HDL Ratio 1.96 % 10/29/21 19:40 Procalcitonin 61.95 ng/mL (<0.15) 10/30/21 Unknown TSH 3.080 mlU/mL (0.270-4.200) 10/29/21 15:10 Urine Color Yellow (Yellow) 11/13/21 08:30 Urine Turbidity Slightly-cloudy (Clear) 11/13/21 08:30 Urine pH 6.0 (5.0-7.0) 11/13/21 08:30 Ur Specific [place] 1.010 (1.003-1.030) 11/13/21 08:30 Urine Protein <15 mg/dl mg/dL (Negative) 11/13/21 08:30 Urine Glucose (UA) Neg mg/dL (Negative) 11/13/21 08:30 Urine Ketones Tr mg/dL (Negative) 11/13/21 08:30 Urine Blood Sm (Negative) 11/13/21 08:30 Urine Nitrite Neg (Negative) 11/13/21 08:30 Urine Bilirubin Neg (Negative) 11/13/21 08:30 Urine Urobilinogen < 2.0 mg/dL (<2.0) 11/13/21 08:30 Ur Leukocyte Esterase Neg (Negative) 11/13/21 08:30 Urine WBC (Auto) < 1.0 /HPF (0.0-6.0) 11/13/21 08:30 Urine RBC (Auto) < 1.0 /HPF (0.0-6.0) 11/13/21 08:30 U Epithel Cells (Auto) < 1.0 /HPF (0-13.0) 11/13/21 08:30 Urine Mucus Few /HPF 10/29/21 18:15 Urine Eosinophils None seen (None Seen) 11/04/21 Unknown Urine Creatinine 190.9 mg/dL (0.1-20.0) H 11/04/21 Unknown Protein/Creatinin Ratio 0.90 11/04/21 Unknown Urine Sodium 10 mmol/L 11/04/21 Unknown Urine Total Protein 172 mg/dL (5-11.8) H 11/04/21 Unknown Salicylates < 0.3 mg/dL (2.8-20.0) L 10/29/21 15:10 Urine Opiates Screen Negative 10/29/21 18:15 Urine Methadone Screen Negative 10/29/21 18:15 Acetaminophen 5.0 ug/mL (10.0-30.0) L 10/29/21 15:10 Ur Barbiturates Screen Negative 10/29/21 18:15 Ur Phencyclidine Scrn Negative 10/29/21 18:15 Ur Amphetamines Screen Negative 10/29/21 18:15 U Benzodiazepines Scrn Negative 10/29/21 18:15 Urine Cocaine Screen Negative 10/29/21 18:15 U Marijuana (THC) Screen Negative 10/29/21 18:15 Drugs of Abuse Note Disclamer 10/29/21 18:15 Plasma/Serum Alcohol < 0.01 % (0-0.07) 10/29/21 15:10 Coronavirus (PCR) Negative (Negative) 10/30/21 Unknown Blood Type O POSITIVE 11/12/21 04:15 Antibody Screen Negative 11/12/21 04:15 Crossmatch See Detail 11/12/21 04:15 Krishna/IV: Voiding Method External Female Catheter Active Medications - Current Medications Current Medications: Generic Name Dose Route Start Last Admin Trade Name Freq PRN Reason Stop Dose Admin Acetaminophen 650 mg 10/29/21 17:04 11/12/21 22:53 Acetaminophen 650 Mg Rect Supp MI 650 mg Q6H PRN Administration Pain MILD(1-3)/Fever >100.5/NIEVES Acetaminophen 650 mg 11/19/21 16:35 11/24/21 10:08 Acetaminophen 325 Mg Tab PO 650 mg Q6HR PRN Administration PAIN Alprazolam 0.25 mg 11/14/21 14:29 11/22/21 21:57 Alprazolam 0.25 Mg Tab PO 0.25 mg Q8H PRN Administration Anxiety Dextrose 0 ml 11/04/21 13:48 11/12/21 05:45 Dextrose 10% *Hypoglycemia IV 50 ml PRN PRN Administration Hypoglycemia Docusate Sodium 100 mg 11/18/21 15:00 11/25/21 08:22 Docusate Sodium 100 Mg Cap PO 100 mg BID RAMON Administration Famotidine 10 mg 11/06/21 10:00 11/25/21 08:22 Famotidine 10 Mg Tab PO 10 mg BID RAMON Administration Furosemide 20 mg 11/18/21 10:00 11/25/21 08:23 Furosemide 20 Mg/2 Ml Inj IV 20 mg BID RAMON Administration Hydralazine HCl 50 mg 11/22/21 22:00 11/25/21 06:46 Hydralazine 25 Mg Tab PO 50 mg Q8HR RAMON Administration Hydrophilic Ointment 1 applic 10/29/21 14:29 11/09/21 08:51 Lip Therapy Vaseline TP 1 applic Q2HR PRN Administration Dry Lips Insulin Human Lispro 0 unit 10/30/21 16:00 11/25/21 00:12 Insulin Lispro 100 Unit/Ml SUB-Q Not Given Q6HR [facility] Protocol Lactulose 20 gm 11/18/21 14:43 11/18/21 15:06 Lactulose 20 Gm/30 Ml Oral Liqd PO 20 gm Q6H PRN Administration Constipation Losartan Potassium 50 mg 11/20/21 11:00 11/25/21 08:23 Losartan 25 Mg Tab PO 50 mg BID RAMON Administration Melatonin 10 mg 11/22/21 17:31 11/22/21 21:56 Melatonin 5 Mg Tab PO 10 mg QHS PRN Administration Sleep Metoprolol Tartrate 100 mg 11/16/21 22:00 11/24/21 21:53 Metoprolol Tartrate 100 Mg Tab PO 100 mg BID RAMON Administration Multi-Ingred Cream/Lotion/Oil/Oint 1 applic 10/29/21 14:29 11/06/21 09:25 Mineral Oil/Petrolatum, White Ophth Oint 3.5 Gm OU 1 applic Q4HR PRN Administration Dry Eye(s) Polyethylene Glycol 17 gm 11/20/21 12:47 11/25/21 08:30 Polyethylene Glycol 3350 17 Gm Powder PO 17 gm QDAY PRN Administration Constipation Senna/Docusate Sodium 1 tab 11/16/21 22:00 11/25/21 08:22 Sennosides/Docusate Sodium 8.6/50 Mg Tab PO 1 tab BID RAMON Administration Sodium Chloride 10 ml 10/29/21 22:00 11/25/21 08:34 Sodium Chloride 0.9% 10 Ml Flush Syringe IV 10 ml BID RAMON Administration Sodium Chloride 10 ml 10/29/21 17:04 Sodium Chloride 0.9% 10 Ml Flush Syringe IV PRN PRN LINE FLUSH Spironolactone 25 mg 11/10/21 10:00 11/25/21 08:24 Spironolactone 25 Mg Tab PO 25 mg QDAY RAMON Administration Nutrition/Malnutrition Assess - Dietary Evaluation Nutrition/Malnutrition Findings: Nutrition Notes Start: 10/30/21 09:50 Freq: Status: Active Protocol: Document 11/17/21 14:55 MEENU (Rec: 11/17/21 15:13 MEENU [id number]) Nutrition Notes Current Diagnosis Sepsis,Hypertension, Respiratory Failure Other Pertinent Diagnosis s/p Cardiac Arrest, DVT, Anemia, Pneumonia, Pneumothorax, P Edema, HFrEF.. . Current Diet Pureed Diet (since L 11/15). Height 5 ft 10 in Weight 112 kg [place] Body Weight (kg) 68.18 BMI 35.4 Weight change and time frame No body weight change reported in 2 days. Weight Status Obese Subjective/Other Information RD consulr for routine F/U on Diet tolerance/advancement. Reports on Pt's PO intake show that pt has a preference for Dinner (100%), that Breakfast or Lunch (0-50%), according to ADL notes. Plans for discharge Pt on . Percent of energy/protein needs met: Prescribed Pureed Diet provides for energy/protein needs (1,804 Kcal/77 g) during LOS. #1 Nutrition Diagnosis Inadequate oral intake Comments: Reports on Pt's PO intake show that pt has a preference for Dinner (100%), that Breakfast or Lunch (0-50%), according to ADL notes. Diagnosis Progress(for reassessment Improved documentation) Is patient on ventilator? No Is Patient Ambulatory and/or Out of Bed No [facility] 2087.388 Kcal/Kg value to use for calculation 15 Approximate Energy Requirements Using 1680 kcal/Kg Calculation Used for Recommendations Kcal/kg Additional Notes Protein: 0.8-1.2 g/Kg IBW; 70- 105 g/day. Fluids: 1 ml/Kcal, or as per MD. Nutrition Intervention Change Diet Order: Continue Pureed Diet. Goal #1 Maintain body weight within +/ -3% of admission body weight during LOS. Goal #2 Facilitate PO intake of meals with mechanical modification during LOS. Follow-Up By: 11/24/21 Additional Comments Continue monitoring food tolerance, %PO intake of meals , and BM.
--- NOTE | 2021-11-25 10:47 | Progress Note ---
Assessment and Plan 66 YO Female with Obesity presents to ED for evaluation. Patient is intubated and on ventilatory support . Patient was attending [facility] services when the patient collapsed and lost consciousness. Witnesses began CPR. EMS was notified and upon arrival the patient was found to be in distress without perfusing cardiac rhythm. Patient initiated on ACLS protocol and subsequently intubated in the field and subsequent transported to [facility] for further care and evaluation of the aforementioned symptoms. The patient regained spontaneous ci rculation during transport. Patient seen and evaluated upon arrival and found to have acute hypoxemic respiratory failure, septic shock suspected secondary to aspiration pneumonia, metabolic acidosis, toxic metabolic encephalopathy, shock liver, and cardiac arrest with return of perfusing cardiac rhythm after initiation of ACLS protocol. Patient initiated on sepsis protocol as well as pneumonia protocol. Patient admitted to ICU. No reports of fever, chills, chest pain, palpitation, productive cough, skin rash, recent contact, known exposure to COVID-19. Patient has history of diabetes and hypertension. According to the chart review, patient has no history of smoking, alcohol or drug abuse. Patient eventually extubated. Patient transfered to Telemetry. Patient presently on 2 litres O2. O2 saturation 100%. Not using O2 regularly. Recommend to use O2 regularly.BIPAP 18/8, Rate 14, FIO2 30% stand by in the room. Patient Obese , awake. No acute respiratory distress. Patient afebrile. No leukocytosis. Blood pressure 141/76, pulse 81, Respirations 18. Patient using chest vest. Chest xray done 11/18/21 reported Improving interstitial edema. Bilateral duplex study of legs 11/21/21 reported Acute occlusive thrombus is now visualized within the right peroneal veins. There is propagation of the left calf DVT into the popliteal vein on today's exam (near occlusive). Patient presently on Lasix and famotidine. According to vascular note anti coagulation contraindicated because of retroperitoneal bleed. DVT management as per vascular surgery. - Patient Problems (1) Acute hypoxemic respiratory failure Current Visit: Yes Status: Acute Plan to address problem: Patient presently on 2 litres O2. O2 saturation 100%. BIPAP 18/8, rate 14, FIO2 30% stand by in the room. According to vascular note anti coagulation contraindicated because of retroperitoneal bleed. Continue famotidine. (2) Cardiopulmonary arrest Current Visit: Yes Status: Acute Plan to address problem: S/P Resucitation to ROSC. (3) Atrial fibrillation and flutter Current Visit: Yes Status: Acute Plan to address problem: Management as per cardiology. (4) Acute metabolic encephalopathy Current Visit: Yes Status: Acute Plan to address problem: Management as per primary care. (5) Acute kidney injury Current Visit: Yes Status: Acute Plan to address problem: Management as per nephrology. (6) DVT (deep venous thrombosis) Current Visit: Yes Status: Acute Qualifiers: Affected thrombotic vein of extremity: peroneal Plan to address problem: According to vascular note anti coagulation contraindicated because of retroperitoneal bleed. Management as per vascular surgery. (7) Obesity hypoventilation syndrome Current Visit: Yes Status: Acute Plan to address problem: BIPAP during night time and prn for sleepiness and shortness of breath during day time. BIPAP 18/8, Rate 14, FIO2 30% (8) Pneumothorax, right Current Visit: Yes Status: Acute Plan to address problem: S/P chest tube placement and expansion of right lung. Subjective Date of service: 11/25/21 Principal diagnosis: AHRF; Cardiac arrest; R. pneumothorax; pneumonia; AMS; DVT's; SIERRA; Obesity Interval history: 66 YO Female with Obesity presents to ED for evaluation. Patient is intubated and on ventilatory support . Patient was attending [facility] services when the patient collapsed and lost consciousness. Witnesses began CPR. EMS was notified and upon arrival the patient was found to be in distress without perfusing cardiac rhythm. Patient initiated on ACLS protocol and subsequently intubated in the field and subsequent transported to [facility] for further care and evaluation of the aforementioned symptoms. The patient regained spontaneous circulation during transport. Patient seen and evaluated upon arrival and found to have acute hypoxemic respiratory failure, septic shock suspected secondary to aspiration pneumonia, metabolic acidosis, toxic metabolic encephalopathy, shock liver, and cardiac arrest with return of perfusing cardiac rhythm after initiation of ACLS protocol. Patient initiated on sepsis protocol as well as pneumonia protocol. Patient admitted to ICU. No reports of fever, chills, chest pain, palpitation, productive cough, skin rash, recent contact, known exposure to COVID-19. Patient has history of diabetes and hypertension. According to the chart review, patient has no history of smoking, alcohol or drug abuse. Patient eventually extubated. Patient transfered to Telemetry. Patient presently on 2 litres O2. O2 saturation 100%. Not using O2 regularly. Recommend to use O2 regularly.BIPAP 18/8, Rate 14, FIO2 30% stand by in the room. Patient Obese , awake. No acute respiratory distress. Patient afebrile. No leukocytosis. Blood pressure 141/76, pulse 81, Respirations 18. Patient using chest vest. Chest xray done 11/18/21 reported Improving interstitial edema. Bilateral duplex study of legs 11/21/21 reported Acute occlusive thrombus is now visualized within the right peroneal veins. There is propagation of the left calf DVT into the popliteal vein on today's exam (near occlusive). Patient presently on Lasix and famotidine. According to vascular note anti coagulation contraindicated because of retroperitoneal bleed. DVT Management as per vascular surgery. Objective Vital Signs - 12hr 11/24/21 11/25/21 11/25/21 23:09 00:42 03:32 Temperature 99.0 F 98.1 F Pulse Rate 71 72 70 Respiratory 18 23 22 Rate Blood Pressure 119/76 125/70 O2 Sat by Pulse 95 99 100 Oximetry 11/25/21 11/25/21 11/25/21 07:44 07:45 08:23 Temperature 98.4 F Pulse Rate 78 78 Respiratory 18 Rate Blood Pressure 161/92 161/92 O2 Sat by Pulse 96 Oximetry 11/25/21 11/25/21 08:24 09:36 Temperature Pulse Rate 78 Respiratory Rate Blood Pressure 161/92 O2 Sat by Pulse 98 Oximetry Constitutional: no acute distress, alert, other (elderly obese female with mildly increased respiratory effort at rest ) Eyes: non-icteric ENT: oropharynx moist Neck: supple, no lymphadenopathy, no JVD, other (large circumference) Effort: mildly labored Ascultation: Bilateral: diminished breath sounds, rhonchi (scant) Percussion: Bilateral: not dull Cardiovascular: irregular rhythm, other (no R/M) Gastrointestinal: normoactive bowel sounds, soft, non-tender, other (obese) Integumentary: normal, other (Left flank ecchymosis with induration) Extremities: no cyanosis, pulses normal, no ischemia or petechiae, edema (2+) Neurologic: normal mental status, non-focal exam (grossly), pupils equal and round, motor strength normal and (weak) Psychiatric: mood appropriate, affect normal CBC and BMP: 11/24/21 07:19 11/24/21 07:19 ABG, PT/INR, D-dimer: ABG ABG pH 7.475 pH Units (7.350-7.450) H 11/11/21 13:53 ABG pCO2 45.0 mm Hg 11/11/21 13:53 ABG pO2 64.1 mm Hg (80.0-90.0) L 11/11/21 13:53 ABG O2 Saturation 96.3 % (95.0-99.0) 11/11/21 13:53 PT/INR, D-dimer PT 17.2 Sec. (12.2-14.9) H 10/30/21 16:30 INR 1.27 (0.87-1.13) H 10/30/21 16:30 D-Dimer > 77068 ng/mlDDU (0-234) H 10/30/21 Unknown Abnormal lab findings: Abnormal Labs 10/29/21 10/29/21 10/29/21 15:10 15:10 15:10 WBC 27.8 H RBC Hgb Hct MCH 27 L RDW Plt Count Lymph % (Auto) [place] % (Auto) Lymph # (Auto) [place] # (Auto) Seg Neutrophils % Seg Neuts % (Manual) 78.0 H Lymphocytes % (Manual) 10.0 L Nucleated RBC % Seg Neutrophils # Seg Neutrophils # Man 21.7 H Monocytes # (Manual) 1.4 H PT INR APTT D-Dimer Heparin Anti-Xa Level ABG pH ABG pO2 ABG HCO3 ABG O2 Saturation ABG Base Excess ABG Hemoglobin Oxyhemoglobin Sodium Potassium Chloride Carbon Dioxide BUN Creatinine Glucose POC Glucose Hemoglobin A1c Lactic Acid 6.80 H* Calcium Phosphorus Magnesium Ferritin AST ALT Alkaline Phosphatase Lactate Dehydrogenase Troponin T 0.089 H C-Reactive Protein Total Protein Albumin LDL Cholesterol Direct Urine Creatinine Urine Total Protein Salicylates Acetaminophen Crossmatch 10/29/21 10/29/21 10/29/21 15:10 15:10 15:10 WBC RBC Hgb Hct MCH RDW Plt Count Lymph % (Auto) [place] % (Auto) Lymph # (Auto) [place] # (Auto) Seg Neutrophils % Seg Neuts % (Manual) Lymphocytes % (Manual) Nucleated RBC % Seg Neutrophils # Seg Neutrophils # Man Monocytes # (Manual) PT INR APTT D-Dimer Heparin Anti-Xa Level ABG pH ABG pO2 ABG HCO3 ABG O2 Saturation ABG Base Excess ABG Hemoglobin Oxyhemoglobin Sodium 136 L Potassium 2.8 L* Chloride 93.4 L Carbon Dioxide 20 L BUN Creatinine Glucose 330 H POC Glucose Hemoglobin A1c Lactic Acid Calcium Phosphorus Magnesium Ferritin AST 1013 H ALT 1289 H Alkaline Phosphatase 246 H Lactate Dehydrogenase Troponin T C-Reactive Protein Total Protein Albumin LDL Cholesterol Direct Urine Creatinine Urine Total Protein Salicylates < 0.3 L Acetaminophen 5.0 L Crossmatch 10/29/21 10/29/21 10/29/21 15:11 16:01 19:29 WBC RBC Hgb Hct MCH RDW Plt Count Lymph % (Auto) [place] % (Auto) Lymph # (Auto) [place] # (Auto) Seg Neutrophils % Seg Neuts % (Manual) Lymphocytes % (Manual) Nucleated RBC % Seg Neutrophils # Seg Neutrophils # Man Monocytes # (Manual) PT INR APTT D-Dimer Heparin Anti-Xa Level ABG pH 7.307 L ABG pO2 64.1 L ABG HCO3 ABG O2 Saturation 90.8 L ABG Base Excess -2.9 L ABG Hemoglobin Oxyhemoglobin 89.3 L Sodium Potassium Chloride Carbon Dioxide BUN Creatinine Glucose POC Glucose Hemoglobin A1c Lactic Acid 2.60 H* Calcium Phosphorus Magnesium 2.90 H Ferritin AST ALT Alkaline Phosphatase Lactate Dehydrogenase Troponin T C-Reactive Protein Total Protein Albumin LDL Cholesterol Direct Urine Creatinine Urine Total Protein Salicylates Acetaminophen Crossmatch 10/29/21 10/29/21 10/30/21 19:40 22:34 04:30 WBC 16.2 H RBC Hgb Hct MCH 26 L RDW 15.5 H Plt Count Lymph % (Auto) 6.2 L [place] % (Auto) Lymph # (Auto) 1.0 L [place] # (Auto) 0.9 H Seg Neutrophils % 88.1 H Seg Neuts % (Manual) Lymphocytes % (Manual) Nucleated RBC % Seg Neutrophils # 14.2 H Seg Neutrophils # Man Monocytes # (Manual) PT INR APTT D-Dimer Heparin Anti-Xa Level ABG pH ABG pO2 ABG HCO3 ABG O2 Saturation ABG Base Excess ABG Hemoglobin Oxyhemoglobin Sodium Potassium Chloride Carbon Dioxide BUN Creatinine Glucose POC Glucose Hemoglobin A1c Lactic Acid Calcium Phosphorus Magnesium Ferritin AST ALT Alkaline Phosphatase Lactate Dehydrogenase Troponin T 1.950 H* D 1.150 H* D C-Reactive Protein Total Protein Albumin LDL Cholesterol Direct 43 L Urine Creatinine Urine Total Protein Salicylates Acetaminophen Crossmatch 10/30/21 10/30/21 10/30/21 04:30 04:35 05:45 WBC RBC Hgb Hct MCH RDW Plt Count Lymph % (Auto) [place] % (Auto) Lymph # (Auto) [place] # (Auto) Seg Neutrophils % Seg Neuts % (Manual) Lymphocytes % (Manual) Nucleated RBC % Seg Neutrophils # Seg Neutrophils # Man Monocytes # (Manual) PT INR APTT D-Dimer Heparin Anti-Xa Level ABG pH ABG pO2 69.5 L ABG HCO3 ABG O2 Saturation ABG Base Excess -2.7 L ABG Hemoglobin Oxyhemoglobin 94.7 L Sodium Potassium Chloride Carbon Dioxide 21 L BUN Creatinine Glucose 159 H POC Glucose 151 H Hemoglobin A1c Lactic Acid Calcium 7.9 L D Phosphorus Magnesium Ferritin AST 461 H ALT 686 H Alkaline Phosphatase 130 H Lactate Dehydrogenase Troponin T C-Reactive Protein Total Protein 5.6 L D Albumin 3.2 L LDL Cholesterol Direct Urine Creatinine Urine Total Protein Salicylates Acetaminophen Crossmatch 10/30/21 10/30/21 10/30/21 11:24 15:59 16:30 WBC RBC Hgb Hct MCH RDW Plt Count Lymph % (Auto) [place] % (Auto) Lymph # (Auto) [place] # (Auto) Seg Neutrophils % Seg Neuts % (Manual) Lymphocytes % (Manual) Nucleated RBC % Seg Neutrophils # Seg Neutrophils # Man Monocytes # (Manual) PT 17.2 H INR 1.27 H APTT 44.4 H D-Dimer Heparin Anti-Xa Level ABG pH ABG pO2 ABG HCO3 ABG O2 Saturation ABG Base Excess ABG Hemoglobin Oxyhemoglobin Sodium Potassium Chloride Carbon Dioxide BUN Creatinine Glucose POC Glucose 153 H 109 H Hemoglobin A1c Lactic Acid Calcium Phosphorus Magnesium Ferritin AST ALT Alkaline Phosphatase Lactate Dehydrogenase Troponin T C-Reactive Protein Total Protein Albumin LDL Cholesterol Direct Urine Creatinine Urine Total Protein Salicylates Acetaminophen Crossmatch 10/30/21 10/30/21 10/30/21 23:00 Unknown Unknown WBC RBC Hgb Hct MCH RDW Plt Count Lymph % (Auto) [place] % (Auto) Lymph # (Auto) [place] # (Auto) Seg Neutrophils % Seg Neuts % (Manual) Lymphocytes % (Manual) Nucleated RBC % Seg Neutrophils # Seg Neutrophils # Man Monocytes # (Manual) PT INR APTT D-Dimer > 45875 H Heparin Anti-Xa Level 0.82 H ABG pH ABG pO2 ABG HCO3 ABG O2 Saturation ABG Base Excess ABG Hemoglobin Oxyhemoglobin Sodium Potassium Chloride Carbon Dioxide BUN Creatinine Glucose POC Glucose Hemoglobin A1c Lactic Acid Calcium Phosphorus Magnesium Ferritin 208.4 H AST ALT Alkaline Phosphatase Lactate Dehydrogenase Troponin T C-Reactive Protein Total Protein Albumin LDL Cholesterol Direct Urine Creatinine Urine Total Protein Salicylates Acetaminophen Crossmatch 10/30/21 10/31/21 10/31/21 Unknown 04:30 04:30 WBC 14.4 H RBC Hgb Hct MCH 26 L RDW Plt Count Lymph % (Auto) [place] % (Auto) Lymph # (Auto) [place] # (Auto) Seg Neutrophils % Seg Neuts % (Manual) Lymphocytes % (Manual) Nucleated RBC % Seg Neutrophils # Seg Neutrophils # Man Monocytes # (Manual) PT INR APTT D-Dimer Heparin Anti-Xa Level ABG pH ABG pO2 ABG HCO3 ABG O2 Saturation ABG Base Excess ABG Hemoglobin Oxyhemoglobin Sodium Potassium 3.5 L Chloride 107.5 H Carbon Dioxide 20 L BUN 28 H Creatinine 1.7 H Glucose 113 H POC Glucose Hemoglobin A1c Lactic Acid Calcium 7.9 L Phosphorus Magnesium Ferritin AST ALT Alkaline Phosphatase Lactate Dehydrogenase 469 H Troponin T C-Reactive Protein 13.40 H Total Protein Albumin LDL Cholesterol Direct Urine Creatinine Urine Total Protein Salicylates Acetaminophen Crossmatch 10/31/21 10/31/21 10/31/21 04:30 05:11 15:30 WBC RBC Hgb Hct MCH RDW Plt Count Lymph % (Auto) [place] % (Auto) Lymph # (Auto) [place] # (Auto) Seg Neutrophils % Seg Neuts % (Manual) Lymphocytes % (Manual) Nucleated RBC % Seg Neutrophils # Seg Neutrophils # Man Monocytes # (Manual) PT INR APTT D-Dimer Heparin Anti-Xa Level ABG pH 7.222 L ABG pO2 61.5 L ABG HCO3 ABG O2 Saturation 86.2 L ABG Base Excess -6.3 L ABG Hemoglobin 11.2 L Oxyhemoglobin 84.5 L Sodium Potassium Chloride Carbon Dioxide BUN Creatinine Glucose POC Glucose 106 H Hemoglobin A1c 6.7 H Lactic Acid Calcium Phosphorus Magnesium Ferritin AST ALT Alkaline Phosphatase Lactate Dehydrogenase Troponin T C-Reactive Protein Total Protein Albumin LDL Cholesterol Direct Urine Creatinine Urine Total Protein Salicylates Acetaminophen Crossmatch 10/31/21 10/31/21 10/31/21 16:07 16:35 17:45 WBC RBC Hgb Hct MCH RDW Plt Count Lymph % (Auto) [place] % (Auto) Lymph # (Auto) [place] # (Auto) Seg Neutrophils % Seg Neuts % (Manual) Lymphocytes % (Manual) Nucleated RBC % Seg Neutrophils # Seg Neutrophils # Man Monocytes # (Manual) PT INR APTT D-Dimer Heparin Anti-Xa Level ABG pH 7.267 L ABG pO2 58.3 L ABG HCO3 ABG O2 Saturation 88.3 L ABG Base Excess -5.9 L ABG Hemoglobin 10.1 L Oxyhemoglobin 86.5 L Sodium Potassium Chloride Carbon Dioxide BUN Creatinine Glucose POC Glucose 115 H Hemoglobin A1c Lactic Acid Calcium Phosphorus Magnesium Ferritin AST ALT Alkaline Phosphatase Lactate Dehydrogenase Troponin T C-Reactive Protein Total Protein Albumin LDL Cholesterol Direct Urine Creatinine 383.6 H Urine Total Protein Salicylates Acetaminophen Crossmatch 11/01/21 11/01/21 11/01/21 00:06 05:08 06:00 WBC 12.6 H RBC 3.43 L Hgb 8.9 L Hct 28.7 L MCH 26 L RDW 15.7 H Plt Count 130 L Lymph % (Auto) [place] % (Auto) Lymph # (Auto) [place] # (Auto) Seg Neutrophils % Seg Neuts % (Manual) Lymphocytes % (Manual) Nucleated RBC % Seg Neutrophils # Seg Neutrophils # Man Monocytes # (Manual) PT INR APTT D-Dimer Heparin Anti-Xa Level ABG pH ABG pO2 ABG HCO3 ABG O2 Saturation ABG Base Excess ABG Hemoglobin Oxyhemoglobin Sodium Potassium Chloride Carbon Dioxide BUN Creatinine Glucose POC Glucose 114 H 120 H Hemoglobin A1c Lactic Acid Calcium Phosphorus Magnesium Ferritin AST ALT Alkaline Phosphatase Lactate Dehydrogenase Troponin T C-Reactive Protein Total Protein Albumin LDL Cholesterol Direct Urine Creatinine Urine Total Protein Salicylates Acetaminophen Crossmatch 11/01/21 11/01/21 11/01/21 06:00 11:43 14:00 WBC RBC Hgb Hct MCH RDW Plt Count Lymph % (Auto) [place] % (Auto) Lymph # (Auto) [place] # (Auto) Seg Neutrophils % Seg Neuts % (Manual) Lymphocytes % (Manual) Nucleated RBC % Seg Neutrophils # Seg Neutrophils # Man Monocytes # (Manual) PT INR APTT D-Dimer Heparin Anti-Xa Level ABG pH 7.349 L ABG pO2 75.6 L ABG HCO3 ABG O2 Saturation ABG Base Excess -3.9 L ABG Hemoglobin 9.8 L Oxyhemoglobin 93.5 L Sodium Potassium Chloride 114.1 H Carbon Dioxide 20 L BUN 33 H Creatinine Glucose 131 H POC Glucose 151 H Hemoglobin A1c Lactic Acid Calcium 7.7 L Phosphorus Magnesium Ferritin AST 79 H ALT 259 H Alkaline Phosphatase Lactate Dehydrogenase Troponin T C-Reactive Protein Total Protein 5.5 L Albumin 2.7 L LDL Cholesterol Direct Urine Creatinine Urine Total Protein Salicylates Acetaminophen Crossmatch 11/01/21 11/01/21 11/02/21 16:45 22:55 05:12 WBC RBC Hgb Hct MCH RDW Plt Count Lymph % (Auto) [place] % (Auto) Lymph # (Auto) [place] # (Auto) Seg Neutrophils % Seg Neuts % (Manual) Lymphocytes % (Manual) Nucleated RBC % Seg Neutrophils # Seg Neutrophils # Man Monocytes # (Manual) PT INR APTT D-Dimer Heparin Anti-Xa Level ABG pH ABG pO2 ABG HCO3 ABG O2 Saturation ABG Base Excess ABG Hemoglobin Oxyhemoglobin Sodium Potassium Chloride Carbon Dioxide BUN Creatinine Glucose POC Glucose 119 H 129 H 140 H Hemoglobin A1c Lactic Acid Calcium Phosphorus Magnesium Ferritin AST ALT Alkaline Phosphatase Lactate Dehydrogenase Troponin T C-Reactive Protein Total Protein Albumin LDL Cholesterol Direct Urine Creatinine Urine Total Protein Salicylates Acetaminophen Crossmatch 11/02/21 11/02/21 11/02/21 05:35 05:35 09:35 WBC 13.5 H RBC 3.60 L Hgb 9.7 L Hct MCH 27 L RDW 15.7 H Plt Count Lymph % (Auto) [place] % (Auto) Lymph # (Auto) [place] # (Auto) Seg Neutrophils % Seg Neuts % (Manual) Lymphocytes % (Manual) Nucleated RBC % Seg Neutrophils # Seg Neutrophils # Man Monocytes # (Manual) PT INR APTT D-Dimer Heparin Anti-Xa Level ABG pH 7.208 L ABG pO2 75.9 L ABG HCO3 ABG O2 Saturation 93.6 L ABG Base Excess -4.3 L ABG Hemoglobin 9.1 L Oxyhemoglobin 91.6 L Sodium Potassium 5.2 H D Chloride 112.6 H Carbon Dioxide BUN 32 H Creatinine Glucose 152 H POC Glucose Hemoglobin A1c Lactic Acid Calcium 8.2 L Phosphorus Magnesium 2.70 H Ferritin AST ALT Alkaline Phosphatase Lactate Dehydrogenase Troponin T C-Reactive Protein Total Protein Albumin LDL Cholesterol Direct Urine Creatinine Urine Total Protein Salicylates Acetaminophen Crossmatch 11/02/21 11/02/21 11/02/21 11:44 17:13 23:43 WBC RBC Hgb Hct MCH RDW Plt Count Lymph % (Auto) [place] % (Auto) Lymph # (Auto) [place] # (Auto) Seg Neutrophils % Seg Neuts % (Manual) Lymphocytes % (Manual) Nucleated RBC % Seg Neutrophils # Seg Neutrophils # Man Monocytes # (Manual) PT INR APTT D-Dimer Heparin Anti-Xa Level ABG pH ABG pO2 ABG HCO3 ABG O2 Saturation ABG Base Excess ABG Hemoglobin Oxyhemoglobin Sodium Potassium Chloride Carbon Dioxide BUN Creatinine Glucose POC Glucose 173 H 148 H 137 H Hemoglobin A1c Lactic Acid Calcium Phosphorus Magnesium Ferritin AST ALT Alkaline Phosphatase Lactate Dehydrogenase Troponin T C-Reactive Protein Total Protein Albumin LDL Cholesterol Direct Urine Creatinine Urine Total Protein Salicylates Acetaminophen Crossmatch 11/03/21 11/03/21 11/03/21 04:59 06:00 06:00 WBC RBC 3.43 L Hgb 9.1 L Hct 29.0 L MCH 26 L RDW 16.4 H Plt Count Lymph % (Auto) [place] % (Auto) Lymph # (Auto) [place] # (Auto) Seg Neutrophils % Seg Neuts % (Manual) Lymphocytes % (Manual) Nucleated RBC % Seg Neutrophils # Seg Neutrophils # Man Monocytes # (Manual) PT INR APTT D-Dimer Heparin Anti-Xa Level 0.17 L ABG pH ABG pO2 ABG HCO3 ABG O2 Saturation ABG Base Excess ABG Hemoglobin Oxyhemoglobin Sodium Potassium Chloride Carbon Dioxide BUN Creatinine Glucose POC Glucose 167 H Hemoglobin A1c Lactic Acid Calcium Phosphorus Magnesium Ferritin AST ALT Alkaline Phosphatase Lactate Dehydrogenase Troponin T C-Reactive Protein Total Protein Albumin LDL Cholesterol Direct Urine Creatinine Urine Total Protein Salicylates Acetaminophen Crossmatch 11/03/21 11/03/21 11/03/21 06:00 09:20 11:58 WBC RBC Hgb Hct MCH RDW Plt Count Lymph % (Auto) [place] % (Auto) Lymph # (Auto) [place] # (Auto) Seg Neutrophils % Seg Neuts % (Manual) Lymphocytes % (Manual) Nucleated RBC % Seg Neutrophils # Seg Neutrophils # Man Monocytes # (Manual) PT INR APTT D-Dimer Heparin Anti-Xa Level ABG pH 7.274 L ABG pO2 75.6 L ABG HCO3 ABG O2 Saturation 94.9 L ABG Base Excess -2.5 L ABG Hemoglobin 9.3 L Oxyhemoglobin 92.9 L Sodium 149 H Potassium Chloride 117.5 H Carbon Dioxide BUN 32 H Creatinine Glucose 173 H POC Glucose 192 H Hemoglobin A1c Lactic Acid Calcium 8.1 L Phosphorus Magnesium Ferritin AST ALT Alkaline Phosphatase Lactate Dehydrogenase Troponin T C-Reactive Protein Total Protein Albumin LDL Cholesterol Direct Urine Creatinine Urine Total Protein Salicylates Acetaminophen Crossmatch 11/03/21 11/03/21 11/04/21 18:22 Unknown 00:09 WBC RBC Hgb Hct MCH RDW Plt Count Lymph % (Auto) [place] % (Auto) Lymph # (Auto) [place] # (Auto) Seg Neutrophils % Seg Neuts % (Manual) Lymphocytes % (Manual) Nucleated RBC % Seg Neutrophils # Seg Neutrophils # Man Monocytes # (Manual) PT INR APTT D-Dimer Heparin Anti-Xa Level 0.29 L ABG pH ABG pO2 ABG HCO3 ABG O2 Saturation ABG Base Excess ABG Hemoglobin Oxyhemoglobin Sodium Potassium Chloride Carbon Dioxide BUN Creatinine Glucose POC Glucose 178 H 221 H Hemoglobin A1c Lactic Acid Calcium Phosphorus Magnesium Ferritin AST ALT Alkaline Phosphatase Lactate Dehydrogenase Troponin T C-Reactive Protein Total Protein Albumin LDL Cholesterol Direct Urine Creatinine Urine Total Protein Salicylates Acetaminophen Crossmatch 11/04/21 11/04/21 11/04/21 05:09 09:40 09:40 WBC 16.8 H RBC Hgb Hct MCH 27 L RDW 16.5 H Plt Count Lymph % (Auto) [place] % (Auto) Lymph # (Auto) [place] # (Auto) Seg Neutrophils % Seg Neuts % (Manual) Lymphocytes % (Manual) Nucleated RBC % Seg Neutrophils # Seg Neutrophils # Man Monocytes # (Manual) PT INR APTT D-Dimer Heparin Anti-Xa Level ABG pH ABG pO2 ABG HCO3 ABG O2 Saturation ABG Base Excess ABG Hemoglobin Oxyhemoglobin Sodium Potassium 5.9 H Chloride 108.5 H Carbon Dioxide BUN 54 H Creatinine 1.8 H Glucose 198 H POC Glucose 182 H Hemoglobin A1c Lactic Acid Calcium Phosphorus Magnesium 3.00 H Ferritin AST ALT Alkaline Phosphatase Lactate Dehydrogenase Troponin T C-Reactive Protein Total Protein Albumin LDL Cholesterol Direct Urine Creatinine Urine Total Protein Salicylates Acetaminophen Crossmatch 11/04/21 11/04/21 11/04/21 12:13 13:34 14:05 WBC RBC Hgb Hct MCH RDW Plt Count Lymph % (Auto) [place] % (Auto) Lymph # (Auto) [place] # (Auto) Seg Neutrophils % Seg Neuts % (Manual) Lymphocytes % (Manual) Nucleated RBC % Seg Neutrophils # Seg Neutrophils # Man Monocytes # (Manual) PT INR APTT D-Dimer Heparin Anti-Xa Level ABG pH 7.223 L ABG pO2 71.3 L ABG HCO3 ABG O2 Saturation 92.8 L ABG Base Excess ABG Hemoglobin 8.2 L Oxyhemoglobin 91.0 L Sodium Potassium Chloride Carbon Dioxide BUN Creatinine Glucose POC Glucose 184 H Hemoglobin A1c Lactic Acid Calcium Phosphorus Magnesium Ferritin AST ALT Alkaline Phosphatase Lactate Dehydrogenase Troponin T C-Reactive Protein Total Protein Albumin LDL Cholesterol Direct Urine Creatinine 184.6 H Urine Total Protein Salicylates Acetaminophen Crossmatch 11/04/21 11/04/21 11/05/21 18:02 Unknown 00:07 WBC RBC Hgb Hct MCH RDW Plt Count Lymph % (Auto) [place] % (Auto) Lymph # (Auto) [place] # (Auto) Seg Neutrophils % Seg Neuts % (Manual) Lymphocytes % (Manual) Nucleated RBC % Seg Neutrophils # Seg Neutrophils # Man Monocytes # (Manual) PT INR APTT D-Dimer Heparin Anti-Xa Level ABG pH ABG pO2 ABG HCO3 ABG O2 Saturation ABG Base Excess ABG Hemoglobin Oxyhemoglobin Sodium Potassium Chloride Carbon Dioxide BUN Creatinine Glucose POC Glucose 262 H 259 H Hemoglobin A1c Lactic Acid Calcium Phosphorus Magnesium Ferritin AST ALT Alkaline Phosphatase Lactate Dehydrogenase Troponin T C-Reactive Protein Total Protein Albumin LDL Cholesterol Direct Urine Creatinine 190.9 H Urine Total Protein 172 H Salicylates Acetaminophen Crossmatch 11/05/21 11/05/21 11/05/21 04:20 04:20 05:30 WBC 17.9 H RBC 3.64 L Hgb 9.7 L Hct MCH 27 L RDW 16.4 H Plt Count Lymph % (Auto) [place] % (Auto) Lymph # (Auto) [place] # (Auto) Seg Neutrophils % Seg Neuts % (Manual) Lymphocytes % (Manual) Nucleated RBC % Seg Neutrophils # Seg Neutrophils # Man Monocytes # (Manual) PT INR APTT D-Dimer Heparin Anti-Xa Level ABG pH ABG pO2 ABG HCO3 ABG O2 Saturation ABG Base Excess ABG Hemoglobin Oxyhemoglobin Sodium Potassium 5.6 H Chloride 108.4 H Carbon Dioxide BUN 71 H Creatinine 1.9 H Glucose 270 H POC Glucose 283 H Hemoglobin A1c Lactic Acid Calcium Phosphorus Magnesium Ferritin AST ALT Alkaline Phosphatase Lactate Dehydrogenase Troponin T C-Reactive Protein Total Protein Albumin LDL Cholesterol Direct Urine Creatinine Urine Total Protein Salicylates Acetaminophen Crossmatch 11/05/21 11/05/21 11/05/21 10:05 12:10 15:29 WBC RBC Hgb Hct MCH RDW Plt Count Lymph % (Auto) [place] % (Auto) Lymph # (Auto) [place] # (Auto) Seg Neutrophils % Seg Neuts % (Manual) Lymphocytes % (Manual) Nucleated RBC % Seg Neutrophils # Seg Neutrophils # Man Monocytes # (Manual) PT INR APTT D-Dimer Heparin Anti-Xa Level ABG pH 7.248 L ABG pO2 73.7 L ABG HCO3 26.2 H ABG O2 Saturation 93.1 L ABG Base Excess ABG Hemoglobin 8.9 L Oxyhemoglobin 91.4 L Sodium Potassium Chloride Carbon Dioxide BUN Creatinine Glucose POC Glucose 225 H 199 H Hemoglobin A1c Lactic Acid Calcium Phosphorus Magnesium Ferritin AST ALT Alkaline Phosphatase Lactate Dehydrogenase Troponin T C-Reactive Protein Total Protein Albumin LDL Cholesterol Direct Urine Creatinine Urine Total Protein Salicylates Acetaminophen Crossmatch 11/05/21 11/05/21 11/05/21 15:51 17:32 17:40 WBC RBC Hgb Hct MCH RDW Plt Count Lymph % (Auto) [place] % (Auto) Lymph # (Auto) [place] # (Auto) Seg Neutrophils % Seg Neuts % (Manual) Lymphocytes % (Manual) Nucleated RBC % Seg Neutrophils # Seg Neutrophils # Man Monocytes # (Manual) PT INR APTT D-Dimer Heparin Anti-Xa Level ABG pH ABG pO2 ABG HCO3 ABG O2 Saturation ABG Base Excess ABG Hemoglobin Oxyhemoglobin Sodium Potassium 5.2 H Chloride 107.8 H Carbon Dioxide BUN 79 H Creatinine 1.9 H Glucose 204 H POC Glucose 278 H 197 H Hemoglobin A1c Lactic Acid Calcium Phosphorus Magnesium Ferritin AST ALT Alkaline Phosphatase Lactate Dehydrogenase Troponin T C-Reactive Protein Total Protein Albumin LDL Cholesterol Direct Urine Creatinine Urine Total Protein Salicylates Acetaminophen Crossmatch 11/05/21 11/05/21 11/05/21 21:25 22:22 23:43 WBC RBC Hgb Hct MCH RDW Plt Count Lymph % (Auto) [place] % (Auto) Lymph # (Auto) [place] # (Auto) Seg Neutrophils % Seg Neuts % (Manual) Lymphocytes % (Manual) Nucleated RBC % Seg Neutrophils # Seg Neutrophils # Man Monocytes # (Manual) PT INR APTT D-Dimer Heparin Anti-Xa Level ABG pH ABG pO2 ABG HCO3 ABG O2 Saturation ABG Base Excess ABG Hemoglobin Oxyhemoglobin Sodium Potassium 5.3 H Chloride 109.2 H Carbon Dioxide BUN 81 H Creatinine 2.0 H Glucose 195 H POC Glucose 180 H 203 H Hemoglobin A1c Lactic Acid Calcium Phosphorus Magnesium Ferritin AST ALT Alkaline Phosphatase Lactate Dehydrogenase Troponin T C-Reactive Protein Total Protein Albumin LDL Cholesterol Direct Urine Creatinine Urine Total Protein Salicylates Acetaminophen Crossmatch 11/05/21 11/06/21 11/06/21 Unknown 02:35 05:09 WBC RBC Hgb Hct MCH RDW Plt Count Lymph % (Auto) [place] % (Auto) Lymph # (Auto) [place] # (Auto) Seg Neutrophils % Seg Neuts % (Manual) Lymphocytes % (Manual) Nucleated RBC % Seg Neutrophils # Seg Neutrophils # Man Monocytes # (Manual) PT INR APTT D-Dimer Heparin Anti-Xa Level ABG pH ABG pO2 ABG HCO3 ABG O2 Saturation ABG Base Excess ABG Hemoglobin Oxyhemoglobin Sodium 146 H Potassium 6.0 H Chloride 108.1 H 107.1 H Carbon Dioxide 21 L BUN 80 H 84 H Creatinine 2.0 H 2.0 H Glucose 238 H 235 H POC Glucose 215 H Hemoglobin A1c Lactic Acid Calcium Phosphorus Magnesium 2.80 H Ferritin AST ALT 77 H Alkaline Phosphatase Lactate Dehydrogenase Troponin T C-Reactive Protein Total Protein Albumin 3.0 L LDL Cholesterol Direct Urine Creatinine Urine Total Protein Salicylates Acetaminophen Crossmatch 11/06/21 11/06/21 11/06/21 05:40 08:07 08:07 WBC RBC Hgb Hct MCH RDW Plt Count Lymph % (Auto) [place] % (Auto) Lymph # (Auto) [place] # (Auto) Seg Neutrophils % Seg Neuts % (Manual) Lymphocytes % (Manual) Nucleated RBC % Seg Neutrophils # Seg Neutrophils # Man Monocytes # (Manual) PT INR APTT D-Dimer Heparin Anti-Xa Level 1.24 H ABG pH 7.311 L ABG pO2 72.8 L ABG HCO3 29.7 H ABG O2 Saturation 94.1 L ABG Base Excess ABG Hemoglobin 11.4 L Oxyhemoglobin 92.3 L Sodium Potassium 5.2 H Chloride Carbon Dioxide BUN 85 H Creatinine 2.3 H Glucose 236 H POC Glucose Hemoglobin A1c Lactic Acid Calcium Phosphorus Magnesium Ferritin AST ALT Alkaline Phosphatase Lactate Dehydrogenase Troponin T C-Reactive Protein Total Protein Albumin LDL Cholesterol Direct Urine Creatinine Urine Total Protein Salicylates Acetaminophen Crossmatch 11/06/21 11/06/21 11/06/21 12:14 12:57 14:28 WBC RBC Hgb Hct MCH RDW Plt Count Lymph % (Auto) [place] % (Auto) Lymph # (Auto) [place] # (Auto) Seg Neutrophils % Seg Neuts % (Manual) Lymphocytes % (Manual) Nucleated RBC % Seg Neutrophils # Seg Neutrophils # Man Monocytes # (Manual) PT INR APTT D-Dimer Heparin Anti-Xa Level ABG pH 7.282 L ABG pO2 72.6 L ABG HCO3 30.8 H ABG O2 Saturation 93.7 L ABG Base Excess 3.2 H ABG Hemoglobin 8.6 L Oxyhemoglobin 91.8 L Sodium Potassium Chloride Carbon Dioxide BUN 91 H Creatinine 2.6 H Glucose 259 H POC Glucose 225 H Hemoglobin A1c Lactic Acid Calcium Phosphorus Magnesium Ferritin AST ALT Alkaline Phosphatase Lactate Dehydrogenase Troponin T C-Reactive Protein Total Protein Albumin LDL Cholesterol Direct Urine Creatinine Urine Total Protein Salicylates Acetaminophen Crossmatch 11/06/21 11/06/21 11/06/21 17:28 19:20 21:30 WBC RBC Hgb Hct MCH RDW Plt Count Lymph % (Auto) [place] % (Auto) Lymph # (Auto) [place] # (Auto) Seg Neutrophils % Seg Neuts % (Manual) Lymphocytes % (Manual) Nucleated RBC % Seg Neutrophils # Seg Neutrophils # Man Monocytes # (Manual) PT INR APTT D-Dimer Heparin Anti-Xa Level 0.73 H ABG pH ABG pO2 ABG HCO3 ABG O2 Saturation ABG Base Excess ABG Hemoglobin Oxyhemoglobin Sodium Potassium Chloride Carbon Dioxide BUN 95 H Creatinine 2.9 H Glucose 233 H POC Glucose 206 H Hemoglobin A1c Lactic Acid Calcium Phosphorus Magnesium Ferritin AST ALT Alkaline Phosphatase Lactate Dehydrogenase Troponin T C-Reactive Protein Total Protein Albumin LDL Cholesterol Direct Urine Creatinine Urine Total Protein Salicylates Acetaminophen Crossmatch 11/06/21 11/07/21 11/07/21 22:56 05:06 06:30 WBC RBC Hgb Hct MCH RDW Plt Count Lymph % (Auto) [place] % (Auto) Lymph # (Auto) [place] # (Auto) Seg Neutrophils % Seg Neuts % (Manual) Lymphocytes % (Manual) Nucleated RBC % Seg Neutrophils # Seg Neutrophils # Man Monocytes # (Manual) PT INR APTT D-Dimer Heparin Anti-Xa Level ABG pH ABG pO2 ABG HCO3 ABG O2 Saturation ABG Base Excess ABG Hemoglobin Oxyhemoglobin Sodium 146 H Potassium Chloride Carbon Dioxide BUN 98 H Creatinine 2.8 H Glucose 202 H POC Glucose 215 H 172 H Hemoglobin A1c Lactic Acid Calcium Phosphorus 4.90 H D Magnesium 2.90 H Ferritin AST ALT Alkaline Phosphatase Lactate Dehydrogenase Troponin T C-Reactive Protein Total Protein Albumin LDL Cholesterol Direct Urine Creatinine Urine Total Protein Salicylates Acetaminophen Crossmatch 11/07/21 11/07/21 11/07/21 06:30 11:26 12:15 WBC 16.0 H RBC 3.06 L Hgb 8.2 L Hct 26.1 L MCH 27 L RDW 16.2 H Plt Count Lymph % (Auto) [place] % (Auto) Lymph # (Auto) [place] # (Auto) Seg Neutrophils % Seg Neuts % (Manual) 77.0 H Lymphocytes % (Manual) 11.0 L Nucleated RBC % 2.0 H Seg Neutrophils # Seg Neutrophils # Man 12.3 H Monocytes # (Manual) PT INR APTT D-Dimer Heparin Anti-Xa Level ABG pH 7.298 L ABG pO2 73.0 L ABG HCO3 33.3 H ABG O2 Saturation 94.4 L ABG Base Excess 5.8 H ABG Hemoglobin 8.2 L Oxyhemoglobin 92.7 L Sodium Potassium Chloride Carbon Dioxide BUN Creatinine Glucose POC Glucose 179 H Hemoglobin A1c Lactic Acid Calcium Phosphorus Magnesium Ferritin AST ALT Alkaline Phosphatase Lactate Dehydrogenase Troponin T C-Reactive Protein Total Protein Albumin LDL Cholesterol Direct Urine Creatinine Urine Total Protein Salicylates Acetaminophen Crossmatch 11/07/21 11/07/21 11/07/21 17:57 22:16 23:49 WBC RBC Hgb Hct MCH RDW Plt Count Lymph % (Auto) [place] % (Auto) Lymph # (Auto) [place] # (Auto) Seg Neutrophils % Seg Neuts % (Manual) Lymphocytes % (Manual) Nucleated RBC % Seg Neutrophils # Seg Neutrophils # Man Monocytes # (Manual) PT INR APTT D-Dimer Heparin Anti-Xa Level ABG pH ABG pO2 ABG HCO3 ABG O2 Saturation ABG Base Excess ABG Hemoglobin Oxyhemoglobin Sodium Potassium Chloride Carbon Dioxide BUN Creatinine Glucose POC Glucose 166 H 223 H 190 H Hemoglobin A1c Lactic Acid Calcium Phosphorus Magnesium Ferritin AST ALT Alkaline Phosphatase Lactate Dehydrogenase Troponin T C-Reactive Protein Total Protein Albumin LDL Cholesterol Direct Urine Creatinine Urine Total Protein Salicylates Acetaminophen Crossmatch 11/08/21 11/08/21 11/08/21 04:20 04:20 06:16 WBC 22.1 H RBC 3.01 L Hgb 8.1 L Hct 25.6 L MCH 27 L RDW 15.4 H Plt Count Lymph % (Auto) [place] % (Auto) Lymph # (Auto) [place] # (Auto) Seg Neutrophils % Seg Neuts % (Manual) Lymphocytes % (Manual) Nucleated RBC % Seg Neutrophils # Seg Neutrophils # Man Monocytes # (Manual) PT INR APTT D-Dimer Heparin Anti-Xa Level ABG pH ABG pO2 ABG HCO3 ABG O2 Saturation ABG Base Excess ABG Hemoglobin Oxyhemoglobin Sodium 151 H Potassium 3.1 L D Chloride 107.3 H Carbon Dioxide 31 H BUN 82 H Creatinine 1.8 H Glucose 232 H POC Glucose 198 H Hemoglobin A1c Lactic Acid Calcium 8.1 L Phosphorus Magnesium Ferritin AST ALT Alkaline Phosphatase Lactate Dehydrogenase Troponin T C-Reactive Protein Total Protein Albumin LDL Cholesterol Direct Urine Creatinine Urine Total Protein Salicylates Acetaminophen Crossmatch 11/08/21 11/08/21 11/08/21 11:38 12:00 18:29 WBC RBC Hgb Hct MCH RDW Plt Count Lymph % (Auto) [place] % (Auto) Lymph # (Auto) [place] # (Auto) Seg Neutrophils % Seg Neuts % (Manual) Lymphocytes % (Manual) Nucleated RBC % Seg Neutrophils # Seg Neutrophils # Man Monocytes # (Manual) PT INR APTT D-Dimer Heparin Anti-Xa Level ABG pH ABG pO2 ABG HCO3 ABG O2 Saturation ABG Base Excess ABG Hemoglobin Oxyhemoglobin Sodium Potassium 3.0 L Chloride Carbon Dioxide BUN Creatinine Glucose POC Glucose 190 H 211 H Hemoglobin A1c Lactic Acid Calcium Phosphorus Magnesium Ferritin AST ALT Alkaline Phosphatase Lactate Dehydrogenase Troponin T C-Reactive Protein Total Protein Albumin LDL Cholesterol Direct Urine Creatinine Urine Total Protein Salicylates Acetaminophen Crossmatch 11/08/21 11/08/21 11/09/21 21:34 21:40 00:36 WBC RBC Hgb Hct MCH RDW Plt Count Lymph % (Auto) [place] % (Auto) Lymph # (Auto) [place] # (Auto) Seg Neutrophils % Seg Neuts % (Manual) Lymphocytes % (Manual) Nucleated RBC % Seg Neutrophils # Seg Neutrophils # Man Monocytes # (Manual) PT INR APTT D-Dimer Heparin Anti-Xa Level ABG pH ABG pO2 ABG HCO3 ABG O2 Saturation ABG Base Excess ABG Hemoglobin Oxyhemoglobin Sodium 148 H Potassium 2.8 L* Chloride Carbon Dioxide 31 H BUN 68 H Creatinine 1.5 H Glucose 191 H POC Glucose 194 H 140 H Hemoglobin A1c Lactic Acid Calcium 8.2 L Phosphorus Magnesium Ferritin AST ALT Alkaline Phosphatase Lactate Dehydrogenase Troponin T C-Reactive Protein Total Protein Albumin LDL Cholesterol Direct Urine Creatinine Urine Total Protein Salicylates Acetaminophen Crossmatch 11/09/21 11/09/21 11/09/21 04:51 04:51 04:51 WBC 27.6 H RBC 3.18 L Hgb 8.4 L Hct 26.6 L MCH 27 L RDW 15.3 H Plt Count Lymph % (Auto) [place] % (Auto) Lymph # (Auto) [place] # (Auto) Seg Neutrophils % Seg Neuts % (Manual) Lymphocytes % (Manual) Nucleated RBC % Seg Neutrophils # Seg Neutrophils # Man Monocytes # (Manual) PT INR APTT D-Dimer Heparin Anti-Xa Level 0.18 L ABG pH ABG pO2 ABG HCO3 ABG O2 Saturation ABG Base Excess ABG Hemoglobin Oxyhemoglobin Sodium 148 H Potassium 2.7 L* Chloride Carbon Dioxide BUN 59 H Creatinine 1.4 H Glucose 143 H POC Glucose Hemoglobin A1c Lactic Acid Calcium 8.3 L Phosphorus Magnesium Ferritin AST ALT Alkaline Phosphatase Lactate Dehydrogenase Troponin T C-Reactive Protein Total Protein Albumin LDL Cholesterol Direct Urine Creatinine Urine Total Protein Salicylates Acetaminophen Crossmatch 11/09/21 11/09/21 11/09/21 05:52 08:45 11:00 WBC RBC Hgb Hct MCH RDW Plt Count Lymph % (Auto) [place] % (Auto) Lymph # (Auto) [place] # (Auto) Seg Neutrophils % Seg Neuts % (Manual) Lymphocytes % (Manual) Nucleated RBC % Seg Neutrophils # Seg Neutrophils # Man Monocytes # (Manual) PT INR APTT D-Dimer Heparin Anti-Xa Level ABG pH ABG pO2 73.2 L ABG HCO3 33.8 H ABG O2 Saturation ABG Base Excess 8.7 H ABG Hemoglobin 8.5 L Oxyhemoglobin 94.1 L Sodium Potassium Chloride Carbon Dioxide BUN Creatinine Glucose POC Glucose 166 H 136 H Hemoglobin A1c Lactic Acid Calcium Phosphorus Magnesium Ferritin AST ALT Alkaline Phosphatase Lactate Dehydrogenase Troponin T C-Reactive Protein Total Protein Albumin LDL Cholesterol Direct Urine Creatinine Urine Total Protein Salicylates Acetaminophen Crossmatch 11/09/21 11/09/21 11/09/21 15:48 16:10 20:31 WBC RBC Hgb Hct MCH RDW Plt Count Lymph % (Auto) [place] % (Auto) Lymph # (Auto) [place] # (Auto) Seg Neutrophils % Seg Neuts % (Manual) Lymphocytes % (Manual) Nucleated RBC % Seg Neutrophils # Seg Neutrophils # Man Monocytes # (Manual) PT INR APTT D-Dimer Heparin Anti-Xa Level ABG pH ABG pO2 ABG HCO3 ABG O2 Saturation ABG Base Excess ABG Hemoglobin Oxyhemoglobin Sodium Potassium 2.8 L* Chloride Carbon Dioxide 31 H BUN 53 H Creatinine 1.3 H Glucose 208 H POC Glucose 203 H 166 H Hemoglobin A1c Lactic Acid Calcium 7.9 L Phosphorus Magnesium Ferritin AST ALT Alkaline Phosphatase Lactate Dehydrogenase Troponin T C-Reactive Protein Total Protein Albumin LDL Cholesterol Direct Urine Creatinine Urine Total Protein Salicylates Acetaminophen Crossmatch 11/09/21 11/09/21 11/09/21 21:30 23:16 Unknown WBC RBC Hgb Hct MCH RDW Plt Count Lymph % (Auto) [place] % (Auto) Lymph # (Auto) [place] # (Auto) Seg Neutrophils % Seg Neuts % (Manual) Lymphocytes % (Manual) Nucleated RBC % Seg Neutrophils # Seg Neutrophils # Man Monocytes # (Manual) PT INR APTT D-Dimer Heparin Anti-Xa Level 0.24 L ABG pH ABG pO2 ABG HCO3 ABG O2 Saturation ABG Base Excess ABG Hemoglobin Oxyhemoglobin Sodium Potassium Chloride Carbon Dioxide BUN 52 H Creatinine 1.4 H Glucose 185 H POC Glucose 172 H Hemoglobin A1c Lactic Acid Calcium 7.8 L Phosphorus Magnesium Ferritin AST ALT Alkaline Phosphatase Lactate Dehydrogenase Troponin T C-Reactive Protein Total Protein Albumin LDL Cholesterol Direct Urine Creatinine Urine Total Protein Salicylates Acetaminophen Crossmatch 11/10/21 11/10/21 11/10/21 02:00 04:17 04:17 WBC 24.5 H RBC 2.75 L Hgb 7.5 L Hct 22.9 L MCH 27 L RDW Plt Count Lymph % (Auto) [place] % (Auto) Lymph # (Auto) [place] # (Auto) Seg Neutrophils % Seg Neuts % (Manual) Lymphocytes % (Manual) Nucleated RBC % Seg Neutrophils # Seg Neutrophils # Man Monocytes # (Manual) PT INR APTT D-Dimer Heparin Anti-Xa Level 0.26 L ABG pH ABG pO2 ABG HCO3 ABG O2 Saturation ABG Base Excess ABG Hemoglobin Oxyhemoglobin Sodium Potassium 2.9 L* Chloride Carbon Dioxide 35 H BUN 48 H Creatinine Glucose 212 H POC Glucose Hemoglobin A1c Lactic Acid Calcium 8.1 L Phosphorus Magnesium Ferritin AST ALT Alkaline Phosphatase Lactate Dehydrogenase Troponin T C-Reactive Protein Total Protein Albumin LDL Cholesterol Direct Urine Creatinine Urine Total Protein Salicylates Acetaminophen Crossmatch 11/10/21 11/10/21 11/10/21 05:01 08:39 11:03 WBC RBC Hgb Hct MCH RDW Plt Count Lymph % (Auto) [place] % (Auto) Lymph # (Auto) [place] # (Auto) Seg Neutrophils % Seg Neuts % (Manual) Lymphocytes % (Manual) Nucleated RBC % Seg Neutrophils # Seg Neutrophils # Man Monocytes # (Manual) PT INR APTT D-Dimer Heparin Anti-Xa Level 0.12 L ABG pH ABG pO2 ABG HCO3 ABG O2 Saturation ABG Base Excess ABG Hemoglobin Oxyhemoglobin Sodium Potassium Chloride Carbon Dioxide BUN Creatinine Glucose POC Glucose 203 H 152 H Hemoglobin A1c Lactic Acid Calcium Phosphorus Magnesium Ferritin AST ALT Alkaline Phosphatase Lactate Dehydrogenase Troponin T C-Reactive Protein Total Protein Albumin LDL Cholesterol Direct Urine Creatinine Urine Total Protein Salicylates Acetaminophen Crossmatch 11/10/21 11/10/21 11/10/21 12:45 15:43 21:05 WBC RBC Hgb Hct MCH RDW Plt Count Lymph % (Auto) [place] % (Auto) Lymph # (Auto) [place] # (Auto) Seg Neutrophils % Seg Neuts % (Manual) Lymphocytes % (Manual) Nucleated RBC % Seg Neutrophils # Seg Neutrophils # Man Monocytes # (Manual) PT INR APTT D-Dimer Heparin Anti-Xa Level ABG pH ABG pO2 ABG HCO3 ABG O2 Saturation ABG Base Excess ABG Hemoglobin Oxyhemoglobin Sodium 146 H Potassium 3.3 L Chloride Carbon Dioxide 31 H BUN 43 H Creatinine Glucose 155 H POC Glucose 139 H 139 H Hemoglobin A1c Lactic Acid Calcium 8.3 L Phosphorus Magnesium Ferritin AST ALT Alkaline Phosphatase Lactate Dehydrogenase Troponin T C-Reactive Protein Total Protein Albumin LDL Cholesterol Direct Urine Creatinine Urine Total Protein Salicylates Acetaminophen Crossmatch 11/10/21 11/11/21 11/11/21 23:25 03:49 03:49 WBC 22.1 H RBC 2.69 L Hgb 7.2 L Hct 22.7 L MCH 27 L RDW Plt Count Lymph % (Auto) [place] % (Auto) Lymph # (Auto) [place] # (Auto) Seg Neutrophils % Seg Neuts % (Manual) Lymphocytes % (Manual) Nucleated RBC % Seg Neutrophils # Seg Neutrophils # Man Monocytes # (Manual) PT INR APTT D-Dimer Heparin Anti-Xa Level ABG pH ABG pO2 ABG HCO3 ABG O2 Saturation ABG Base Excess ABG Hemoglobin Oxyhemoglobin Sodium Potassium Chloride Carbon Dioxide 32 H BUN 44 H Creatinine 1.3 H Glucose 173 H POC Glucose 146 H Hemoglobin A1c Lactic Acid Calcium Phosphorus Magnesium Ferritin AST ALT Alkaline Phosphatase Lactate Dehydrogenase Troponin T C-Reactive Protein Total Protein Albumin LDL Cholesterol Direct Urine Creatinine Urine Total Protein Salicylates Acetaminophen Crossmatch 11/11/21 11/11/21 11/11/21 05:03 10:50 11:32 WBC RBC Hgb Hct MCH RDW Plt Count Lymph % (Auto) [place] % (Auto) Lymph # (Auto) [place] # (Auto) Seg Neutrophils % Seg Neuts % (Manual) Lymphocytes % (Manual) Nucleated RBC % Seg Neutrophils # Seg Neutrophils # Man Monocytes # (Manual) PT INR APTT D-Dimer Heparin Anti-Xa Level ABG pH ABG pO2 ABG HCO3 ABG O2 Saturation ABG Base Excess ABG Hemoglobin Oxyhemoglobin Sodium Potassium Chloride Carbon Dioxide BUN Creatinine Glucose POC Glucose 152 H 129 H 133 H Hemoglobin A1c Lactic Acid Calcium Phosphorus Magnesium Ferritin AST ALT Alkaline Phosphatase Lactate Dehydrogenase Troponin T C-Reactive Protein Total Protein Albumin LDL Cholesterol Direct Urine Creatinine Urine Total Protein Salicylates Acetaminophen Crossmatch 11/11/21 11/11/21 11/11/21 13:53 16:31 17:13 WBC RBC Hgb Hct MCH RDW Plt Count Lymph % (Auto) [place] % (Auto) Lymph # (Auto) [place] # (Auto) Seg Neutrophils % Seg Neuts % (Manual) Lymphocytes % (Manual) Nucleated RBC % Seg Neutrophils # Seg Neutrophils # Man Monocytes # (Manual) PT INR APTT D-Dimer Heparin Anti-Xa Level ABG pH 7.475 H ABG pO2 64.1 L ABG HCO3 32.4 H ABG O2 Saturation ABG Base Excess 8.0 H ABG Hemoglobin 7.6 L Oxyhemoglobin 94.0 L Sodium Potassium Chloride Carbon Dioxide BUN Creatinine Glucose POC Glucose 116 H 125 H Hemoglobin A1c Lactic Acid Calcium Phosphorus Magnesium Ferritin AST ALT Alkaline Phosphatase Lactate Dehydrogenase Troponin T C-Reactive Protein Total Protein Albumin LDL Cholesterol Direct Urine Creatinine Urine Total Protein Salicylates Acetaminophen Crossmatch 11/11/21 11/11/21 11/12/21 20:40 23:35 03:30 WBC 17.7 H RBC 2.37 L Hgb 6.3 L Hct 20.0 L MCH 27 L RDW 15.5 H Plt Count Lymph % (Auto) [place] % (Auto) Lymph # (Auto) [place] # (Auto) Seg Neutrophils % Seg Neuts % (Manual) Lymphocytes % (Manual) Nucleated RBC % Seg Neutrophils # Seg Neutrophils # Man Monocytes # (Manual) PT INR APTT D-Dimer Heparin Anti-Xa Level 0.26 L ABG pH ABG pO2 ABG HCO3 ABG O2 Saturation ABG Base Excess ABG Hemoglobin Oxyhemoglobin Sodium Potassium Chloride Carbon Dioxide BUN Creatinine Glucose POC Glucose 118 H Hemoglobin A1c Lactic Acid Calcium Phosphorus Magnesium Ferritin AST ALT Alkaline Phosphatase Lactate Dehydrogenase Troponin T C-Reactive Protein Total Protein Albumin LDL Cholesterol Direct Urine Creatinine Urine Total Protein Salicylates Acetaminophen Crossmatch 11/12/21 11/12/21 11/12/21 03:30 04:15 11:53 WBC RBC Hgb Hct MCH RDW Plt Count Lymph % (Auto) [place] % (Auto) Lymph # (Auto) [place] # (Auto) Seg Neutrophils % Seg Neuts % (Manual) Lymphocytes % (Manual) Nucleated RBC % Seg Neutrophils # Seg Neutrophils # Man Monocytes # (Manual) PT INR APTT D-Dimer Heparin Anti-Xa Level ABG pH ABG pO2 ABG HCO3 ABG O2 Saturation ABG Base Excess ABG Hemoglobin Oxyhemoglobin Sodium Potassium Chloride Carbon Dioxide 33 H BUN 38 H Creatinine 1.3 H Glucose 102 H POC Glucose 62 L Hemoglobin A1c Lactic Acid Calcium 8.2 L Phosphorus Magnesium Ferritin AST ALT Alkaline Phosphatase Lactate Dehydrogenase Troponin T C-Reactive Protein Total Protein Albumin LDL Cholesterol Direct Urine Creatinine Urine Total Protein Salicylates Acetaminophen Crossmatch See Detail 11/12/21 11/12/21 11/12/21 17:20 19:14 23:11 WBC RBC Hgb 6.2 L Hct 19.5 L* MCH RDW Plt Count Lymph % (Auto) [place] % (Auto) Lymph # (Auto) [place] # (Auto) Seg Neutrophils % Seg Neuts % (Manual) Lymphocytes % (Manual) Nucleated RBC % Seg Neutrophils # Seg Neutrophils # Man Monocytes # (Manual) PT INR APTT D-Dimer Heparin Anti-Xa Level ABG pH ABG pO2 ABG HCO3 ABG O2 Saturation ABG Base Excess ABG Hemoglobin Oxyhemoglobin Sodium Potassium Chloride Carbon Dioxide BUN Creatinine Glucose POC Glucose 115 H 131 H Hemoglobin A1c Lactic Acid Calcium Phosphorus Magnesium Ferritin AST ALT Alkaline Phosphatase Lactate Dehydrogenase Troponin T C-Reactive Protein Total Protein Albumin LDL Cholesterol Direct Urine Creatinine Urine Total Protein Salicylates Acetaminophen Crossmatch 11/13/21 11/13/21 11/13/21 00:13 04:17 04:17 WBC 23.8 H RBC 2.84 L Hgb 7.4 L 7.8 L Hct 23.3 L 24.9 L MCH 27 L RDW 15.4 H Plt Count Lymph % (Auto) [place] % (Auto) Lymph # (Auto) [place] # (Auto) Seg Neutrophils % Seg Neuts % (Manual) Lymphocytes % (Manual) Nucleated RBC % Seg Neutrophils # Seg Neutrophils # Man Monocytes # (Manual) PT INR APTT D-Dimer Heparin Anti-Xa Level ABG pH ABG pO2 ABG HCO3 ABG O2 Saturation ABG Base Excess ABG Hemoglobin Oxyhemoglobin Sodium 146 H Potassium Chloride Carbon Dioxide BUN 44 H Creatinine 1.6 H Glucose 144 H POC Glucose Hemoglobin A1c Lactic Acid Calcium 7.9 L Phosphorus 5.10 H D Magnesium Ferritin AST ALT Alkaline Phosphatase Lactate Dehydrogenase Troponin T C-Reactive Protein Total Protein Albumin LDL Cholesterol Direct Urine Creatinine Urine Total Protein Salicylates Acetaminophen Crossmatch 11/13/21 11/13/21 11/13/21 05:52 10:54 15:57 WBC RBC Hgb Hct MCH RDW Plt Count Lymph % (Auto) [place] % (Auto) Lymph # (Auto) [place] # (Auto) Seg Neutrophils % Seg Neuts % (Manual) Lymphocytes % (Manual) Nucleated RBC % Seg Neutrophils # Seg Neutrophils # Man Monocytes # (Manual) PT INR APTT D-Dimer Heparin Anti-Xa Level ABG pH ABG pO2 ABG HCO3 ABG O2 Saturation ABG Base Excess ABG Hemoglobin Oxyhemoglobin Sodium Potassium Chloride Carbon Dioxide BUN Creatinine Glucose POC Glucose 123 H 147 H 207 H Hemoglobin A1c Lactic Acid Calcium Phosphorus Magnesium Ferritin AST ALT Alkaline Phosphatase Lactate Dehydrogenase Troponin T C-Reactive Protein Total Protein Albumin LDL Cholesterol Direct Urine Creatinine Urine Total Protein Salicylates Acetaminophen Crossmatch 11/13/21 11/13/21 11/14/21 16:01 23:18 04:55 WBC 23.9 H RBC 2.86 L Hgb 6.5 L 8.3 L Hct 20.3 L 24.5 L MCH RDW Plt Count Lymph % (Auto) [place] % (Auto) Lymph # (Auto) [place] # (Auto) Seg Neutrophils % Seg Neuts % (Manual) Lymphocytes % (Manual) Nucleated RBC % Seg Neutrophils # Seg Neutrophils # Man Monocytes # (Manual) PT INR APTT D-Dimer Heparin Anti-Xa Level ABG pH ABG pO2 ABG HCO3 ABG O2 Saturation ABG Base Excess ABG Hemoglobin Oxyhemoglobin Sodium Potassium Chloride Carbon Dioxide BUN Creatinine Glucose POC Glucose 209 H Hemoglobin A1c Lactic Acid Calcium Phosphorus Magnesium Ferritin AST ALT Alkaline Phosphatase Lactate Dehydrogenase Troponin T C-Reactive Protein Total Protein Albumin LDL Cholesterol Direct Urine Creatinine Urine Total Protein Salicylates Acetaminophen Crossmatch 11/14/21 11/14/21 11/14/21 04:55 05:09 11:35 WBC RBC Hgb Hct MCH RDW Plt Count Lymph % (Auto) [place] % (Auto) Lymph # (Auto) [place] # (Auto) Seg Neutrophils % Seg Neuts % (Manual) Lymphocytes % (Manual) Nucleated RBC % Seg Neutrophils # Seg Neutrophils # Man Monocytes # (Manual) PT INR APTT D-Dimer Heparin Anti-Xa Level ABG pH ABG pO2 ABG HCO3 ABG O2 Saturation ABG Base Excess ABG Hemoglobin Oxyhemoglobin Sodium 148 H Potassium Chloride 109.0 H Carbon Dioxide BUN 42 H Creatinine 1.6 H Glucose 184 H POC Glucose 169 H 154 H Hemoglobin A1c Lactic Acid Calcium 8.0 L Phosphorus Magnesium Ferritin AST ALT Alkaline Phosphatase Lactate Dehydrogenase Troponin T C-Reactive Protein Total Protein Albumin LDL Cholesterol Direct Urine Creatinine Urine Total Protein Salicylates Acetaminophen Crossmatch 11/14/21 11/14/21 11/15/21 16:57 23:11 04:36 WBC RBC Hgb Hct MCH RDW Plt Count Lymph % (Auto) [place] % (Auto) Lymph # (Auto) [place] # (Auto) Seg Neutrophils % Seg Neuts % (Manual) Lymphocytes % (Manual) Nucleated RBC % Seg Neutrophils # Seg Neutrophils # Man Monocytes # (Manual) PT INR APTT D-Dimer Heparin Anti-Xa Level ABG pH ABG pO2 ABG HCO3 ABG O2 Saturation ABG Base Excess ABG Hemoglobin Oxyhemoglobin Sodium 151 H Potassium Chloride 111.2 H Carbon Dioxide BUN 36 H Creatinine 1.3 H Glucose 136 H POC Glucose 124 H 118 H Hemoglobin A1c Lactic Acid Calcium 8.1 L Phosphorus Magnesium Ferritin AST ALT Alkaline Phosphatase Lactate Dehydrogenase Troponin T C-Reactive Protein Total Protein Albumin LDL Cholesterol Direct Urine Creatinine Urine Total Protein Salicylates Acetaminophen Crossmatch 11/15/21 11/15/21 11/16/21 11:18 21:49 00:15 WBC RBC Hgb Hct MCH RDW Plt Count Lymph % (Auto) [place] % (Auto) Lymph # (Auto) [place] # (Auto) Seg Neutrophils % Seg Neuts % (Manual) Lymphocytes % (Manual) Nucleated RBC % Seg Neutrophils # Seg Neutrophils # Man Monocytes # (Manual) PT INR APTT D-Dimer Heparin Anti-Xa Level ABG pH ABG pO2 ABG HCO3 ABG O2 Saturation ABG Base Excess ABG Hemoglobin Oxyhemoglobin Sodium Potassium Chloride Carbon Dioxide BUN Creatinine Glucose POC Glucose 154 H 154 H 146 H Hemoglobin A1c Lactic Acid Calcium Phosphorus Magnesium Ferritin AST ALT Alkaline Phosphatase Lactate Dehydrogenase Troponin T C-Reactive Protein Total Protein Albumin LDL Cholesterol Direct Urine Creatinine Urine Total Protein Salicylates Acetaminophen Crossmatch 11/16/21 11/16/21 11/16/21 05:11 05:11 05:37 WBC 18.2 H RBC 2.92 L Hgb 8.3 L Hct 26.1 L MCH RDW 15.8 H Plt Count Lymph % (Auto) 6.3 L [place] % (Auto) 10.2 H Lymph # (Auto) [place] # (Auto) 1.9 H Seg Neutrophils % 81.7 H Seg Neuts % (Manual) Lymphocytes % (Manual) Nucleated RBC % Seg Neutrophils # 14.9 H Seg Neutrophils # Man Monocytes # (Manual) PT INR APTT D-Dimer Heparin Anti-Xa Level ABG pH ABG pO2 ABG HCO3 ABG O2 Saturation ABG Base Excess ABG Hemoglobin Oxyhemoglobin Sodium 146 H Potassium Chloride 108.0 H Carbon Dioxide BUN 25 H Creatinine Glucose 123 H POC Glucose 109 H Hemoglobin A1c Lactic Acid Calcium 7.8 L Phosphorus Magnesium Ferritin AST ALT Alkaline Phosphatase Lactate Dehydrogenase Troponin T C-Reactive Protein Total Protein Albumin LDL Cholesterol Direct Urine Creatinine Urine Total Protein Salicylates Acetaminophen Crossmatch 11/16/21 11/16/21 11/17/21 11:22 23:55 04:33 WBC RBC Hgb Hct MCH RDW Plt Count Lymph % (Auto) [place] % (Auto) Lymph # (Auto) [place] # (Auto) Seg Neutrophils % Seg Neuts % (Manual) Lymphocytes % (Manual) Nucleated RBC % Seg Neutrophils # Seg Neutrophils # Man Monocytes # (Manual) PT INR APTT D-Dimer Heparin Anti-Xa Level ABG pH ABG pO2 ABG HCO3 ABG O2 Saturation ABG Base Excess ABG Hemoglobin Oxyhemoglobin Sodium Potassium Chloride Carbon Dioxide BUN 20 H Creatinine Glucose POC Glucose 136 H 113 H Hemoglobin A1c Lactic Acid Calcium 7.5 L Phosphorus Magnesium Ferritin AST ALT Alkaline Phosphatase Lactate Dehydrogenase Troponin T C-Reactive Protein Total Protein Albumin LDL Cholesterol Direct Urine Creatinine Urine Total Protein Salicylates Acetaminophen Crossmatch 11/17/21 11/18/21 11/18/21 23:22 04:53 04:53 WBC 13.0 H RBC 2.99 L Hgb 8.5 L Hct 26.4 L MCH RDW Plt Count Lymph % (Auto) 9.5 L [place] % (Auto) 9.8 H Lymph # (Auto) [place] # (Auto) 1.3 H Seg Neutrophils % 78.3 H Seg Neuts % (Manual) Lymphocytes % (Manual) Nucleated RBC % Seg Neutrophils # 10.2 H Seg Neutrophils # Man Monocytes # (Manual) PT INR APTT D-Dimer Heparin Anti-Xa Level ABG pH ABG pO2 ABG HCO3 ABG O2 Saturation ABG Base Excess ABG Hemoglobin Oxyhemoglobin Sodium Potassium Chloride Carbon Dioxide BUN 18 H Creatinine Glucose 106 H POC Glucose 112 H Hemoglobin A1c Lactic Acid Calcium 8.1 L Phosphorus Magnesium Ferritin AST ALT Alkaline Phosphatase Lactate Dehydrogenase Troponin T C-Reactive Protein Total Protein Albumin LDL Cholesterol Direct Urine Creatinine Urine Total Protein Salicylates Acetaminophen Crossmatch 11/18/21 11/18/21 11/19/21 11:35 17:42 14:38 WBC RBC Hgb Hct MCH RDW Plt Count Lymph % (Auto) [place] % (Auto) Lymph # (Auto) [place] # (Auto) Seg Neutrophils % Seg Neuts % (Manual) Lymphocytes % (Manual) Nucleated RBC % Seg Neutrophils # Seg Neutrophils # Man Monocytes # (Manual) PT INR APTT D-Dimer Heparin Anti-Xa Level ABG pH ABG pO2 ABG HCO3 ABG O2 Saturation ABG Base Excess ABG Hemoglobin Oxyhemoglobin Sodium Potassium Chloride 97.5 L Carbon Dioxide 31 H BUN Creatinine Glucose 146 H POC Glucose 143 H 132 H Hemoglobin A1c Lactic Acid Calcium Phosphorus Magnesium 1.60 L Ferritin AST ALT Alkaline Phosphatase Lactate Dehydrogenase Troponin T C-Reactive Protein Total Protein Albumin LDL Cholesterol Direct Urine Creatinine Urine Total Protein Salicylates Acetaminophen Crossmatch 11/19/21 11/19/21 11/20/21 16:24 23:58 07:42 WBC RBC 3.01 L Hgb 8.6 L Hct 26.7 L MCH RDW 15.4 H Plt Count Lymph % (Auto) [place] % (Auto) Lymph # (Auto) [place] # (Auto) Seg Neutrophils % Seg Neuts % (Manual) Lymphocytes % (Manual) Nucleated RBC % Seg Neutrophils # Seg Neutrophils # Man Monocytes # (Manual) PT INR APTT D-Dimer Heparin Anti-Xa Level ABG pH ABG pO2 ABG HCO3 ABG O2 Saturation ABG Base Excess ABG Hemoglobin Oxyhemoglobin Sodium Potassium Chloride Carbon Dioxide BUN Creatinine Glucose POC Glucose 129 H 125 H Hemoglobin A1c Lactic Acid Calcium Phosphorus Magnesium Ferritin AST ALT Alkaline Phosphatase Lactate Dehydrogenase Troponin T C-Reactive Protein Total Protein Albumin LDL Cholesterol Direct Urine Creatinine Urine Total Protein Salicylates Acetaminophen Crossmatch 11/20/21 11/20/21 11/20/21 07:42 11:25 22:59 WBC RBC Hgb Hct MCH RDW Plt Count Lymph % (Auto) [place] % (Auto) Lymph # (Auto) [place] # (Auto) Seg Neutrophils % Seg Neuts % (Manual) Lymphocytes % (Manual) Nucleated RBC % Seg Neutrophils # Seg Neutrophils # Man Monocytes # (Manual) PT INR APTT D-Dimer Heparin Anti-Xa Level ABG pH ABG pO2 ABG HCO3 ABG O2 Saturation ABG Base Excess ABG Hemoglobin Oxyhemoglobin Sodium Potassium Chloride Carbon Dioxide 31 H BUN Creatinine Glucose POC Glucose 116 H 113 H Hemoglobin A1c Lactic Acid Calcium Phosphorus Magnesium Ferritin AST ALT Alkaline Phosphatase Lactate Dehydrogenase Troponin T C-Reactive Protein Total Protein Albumin LDL Cholesterol Direct Urine Creatinine Urine Total Protein Salicylates Acetaminophen Crossmatch 11/21/21 11/22/21 11/22/21 10:50 05:10 16:12 WBC RBC Hgb Hct MCH RDW Plt Count Lymph % (Auto) [place] % (Auto) Lymph # (Auto) [place] # (Auto) Seg Neutrophils % Seg Neuts % (Manual) Lymphocytes % (Manual) Nucleated RBC % Seg Neutrophils # Seg Neutrophils # Man Monocytes # (Manual) PT INR APTT D-Dimer Heparin Anti-Xa Level ABG pH ABG pO2 ABG HCO3 ABG O2 Saturation ABG Base Excess ABG Hemoglobin Oxyhemoglobin Sodium Potassium Chloride Carbon Dioxide 32 H BUN Creatinine Glucose POC Glucose 156 H 110 H Hemoglobin A1c Lactic Acid Calcium 8.1 L Phosphorus Magnesium Ferritin AST ALT Alkaline Phosphatase Lactate Dehydrogenase Troponin T C-Reactive Protein Total Protein Albumin LDL Cholesterol Direct Urine Creatinine Urine Total Protein Salicylates Acetaminophen Crossmatch 11/23/21 11/23/21 11/23/21 07:18 07:18 11:45 WBC RBC 3.23 L Hgb 9.1 L Hct 28.5 L MCH RDW 15.6 H Plt Count Lymph % (Auto) [place] % (Auto) Lymph # (Auto) [place] # (Auto) Seg Neutrophils % Seg Neuts % (Manual) Lymphocytes % (Manual) Nucleated RBC % Seg Neutrophils # Seg Neutrophils # Man Monocytes # (Manual) PT INR APTT D-Dimer Heparin Anti-Xa Level ABG pH ABG pO2 ABG HCO3 ABG O2 Saturation ABG Base Excess ABG Hemoglobin Oxyhemoglobin Sodium Potassium 3.3 L Chloride 96.8 L Carbon Dioxide 32 H BUN Creatinine Glucose POC Glucose 140 H Hemoglobin A1c Lactic Acid Calcium Phosphorus Magnesium Ferritin AST ALT Alkaline Phosphatase Lactate Dehydrogenase Troponin T C-Reactive Protein Total Protein Albumin LDL Cholesterol Direct Urine Creatinine Urine Total Protein Salicylates Acetaminophen Crossmatch 11/23/21 11/23/21 11/24/21 16:40 23:45 07:19 WBC RBC 3.12 L Hgb 9.3 L Hct 27.2 L MCH RDW 16.0 H Plt Count Lymph % (Auto) 10.3 L [place] % (Auto) 10.0 H Lymph # (Auto) 1.1 L [place] # (Auto) 1.1 H Seg Neutrophils % 75.2 H Seg Neuts % (Manual) Lymphocytes % (Manual) Nucleated RBC % Seg Neutrophils # 7.9 H Seg Neutrophils # Man Monocytes # (Manual) PT INR APTT D-Dimer Heparin Anti-Xa Level ABG pH ABG pO2 ABG HCO3 ABG O2 Saturation ABG Base Excess ABG Hemoglobin Oxyhemoglobin Sodium Potassium Chloride Carbon Dioxide BUN Creatinine Glucose POC Glucose 140 H 138 H Hemoglobin A1c Lactic Acid Calcium Phosphorus Magnesium Ferritin AST ALT Alkaline Phosphatase Lactate Dehydrogenase Troponin T C-Reactive Protein Total Protein Albumin LDL Cholesterol Direct Urine Creatinine Urine Total Protein Salicylates Acetaminophen Crossmatch 11/24/21 11/24/21 11/24/21 07:19 11:49 15:54 WBC RBC Hgb Hct MCH RDW Plt Count Lymph % (Auto) [place] % (Auto) Lymph # (Auto) [place] # (Auto) Seg Neutrophils % Seg Neuts % (Manual) Lymphocytes % (Manual) Nucleated RBC % Seg Neutrophils # Seg Neutrophils # Man Monocytes # (Manual) PT INR APTT D-Dimer Heparin Anti-Xa Level ABG pH ABG pO2 ABG HCO3 ABG O2 Saturation ABG Base Excess ABG Hemoglobin Oxyhemoglobin Sodium Potassium 3.2 L Chloride 96.7 L Carbon Dioxide BUN Creatinine Glucose 125 H POC Glucose 118 H 106 H Hemoglobin A1c Lactic Acid Calcium Phosphorus Magnesium Ferritin AST ALT Alkaline Phosphatase Lactate Dehydrogenase Troponin T C-Reactive Protein Total Protein Albumin LDL Cholesterol Direct Urine Creatinine Urine Total Protein Salicylates Acetaminophen Crossmatch Allied health notes reviewed: nursing
[2021-11-25] MEDS: ACETAMINOPHEN 325 MG TAB PO PRN ×2 (15:04→21:49)
[2021-11-25] MEDS: MELATONIN 5 MG TAB PO PRN (21:45)
[2021-11-26] MEDS: DOCUSATE SODIUM 100 MG CAP PO SCH ×3 (01:15→21:52)
[2021-11-26] MEDS: SENNOSIDES/DOCUSATE SODIUM 8.6/50 MG TAB PO SCH ×3 (01:16→21:51)
[2021-11-26] MEDS: INSULIN LISPRO 100 UNIT/ML SUB-Q SCH ×6 (01:18→21:53)
[2021-11-26] MEDS: hydrALAZINE 25 MG TAB PO SCH ×3 (06:10→21:53)
[2021-11-26] MEDS: METOPROLOL TARTRATE 100 MG TAB PO SCH ×2 (09:57→21:52)
[2021-11-26] MEDS: FAMOTIDINE 10 MG TAB PO SCH ×2 (09:57→21:52)
[2021-11-26] MEDS: SPIRONOLACTONE 25 MG TAB PO SCH (09:57)
[2021-11-26] MEDS: FUROSEMIDE 20 MG/2 ML INJ IV SCH ×2 (09:57→21:52)
[2021-11-26] MEDS: LOSARTAN 25 MG TAB PO SCH ×2 (09:57→21:52)
[2021-11-26] MEDS: ACETAMINOPHEN 325 MG TAB PO PRN ×2 (10:09→20:32)
--- NOTE | 2021-11-26 10:15 | Progress Note ---
Assessment and Plan Assessment and plan: 66 YO Female with Obesity was attending [facility] services when the patient collapsed and lost consciousness. Witnesses began CPR. EMS was notified and upon arrival the patient was found to be in distress without perfusing cardiac rhythm. Patient initiated on ACLS protocol and subsequently intubated in the field and transported to ED. The patient regained spontaneous circulation during transport. She was found to have acute hypoxemic respiratory failure, septic shock suspected secondary to aspiration pneumonia, metabolic acidosis, toxic metabolic encephalopathy, shock liver, and cardiac arrest with return of perfusing cardiac rhythm after initiation of ACLS protocol. Patient initiated on sepsis protocol as well as pneumonia protocol. Patient admitted to ICU. Patient improved, extubated on 11/11 and transferred to floor on 11/19. s/p cardiac arrest, collapse at [facility], HFrEF, shock/hypotension resolved Atrial fibrillation/atrial flutter -Cardiac arrest and collapse at [facility] with ROSC -Cardiology consulted, appreciate recommendations - S/p Cardizem gtt- d/c due to low EF; now on PO Amio -s/p vasopressor support with levophed -Echocardiogram shows left ventricular systolic function severely decreased, LVEF 25 to 30%, no pericardial effusion -proBNP 5622 -Continue Lasix 20 mg twice daily, BB, spironolactone, losartan -No significant volume overload clinically Acute hypoxic respiratory failure, right pneumothorax, Angioedema (resolved), pulmonary edema -[facility] consulted, appreciate recommendations -Intubated on 10/29 and extubated on 11/11 -Bipap q HS and prn, at high risk for KOLBY with morbid obesity -NC during day -s/p right chest tube for pneumothorax -s/p steroids for angioedema -On Lasix for pulmonary edema. Transaminitis likely shocked liver - resolved Acute kidney injury likely secondary to vasomotor nephropathy, hypernatremia -Nephrology consulted, appreciate recommendations -Krishna replaced 11/05 urinary retention -FeNa 0.05 indicating pre-renal -SIERRA and hyponatremia resolved. Creatinine 1.0 on Lasix IV Shock cardiogenicsuspected sepsis -Fever was as high as 102 with a leukocytosis Blood, urine and sputum cultures negative -COVID-19 PCR negative -S/p empiric antibiotic therapy for possible pneumonia with Rocephin and azithromycin () -S/p Levophed gtt for hypotension -Fever and leukocytosis resolved -Monitor WBC and temperature curve Acute Metabolic encephalopathy, agitation/anxiety -Etiology likely from a cardiac arrest, shock and cerebral hypoperfusion CT head no acute focal parenchymal lesion in the brain -Neurology consulted, appreciate recommendations -EEG and MRI noted, Neuro recommend to cut down on sedation as possible Mental status significantly improved, currently fairly alert and oriented. Answers appropriately. Acute DVT in the left posterior tibial vein and bilateral peroneal veins, Anemia, retroperitoneal bleed -D-dimer greater than 10,000 -CTA chest with no evidence of PE -Bilateral lower extremity ultrasound positive for DVT -Heparin gtt on hold d/t anemia, received PRBC x4 -vasuclar surgery consulted, appreciate recommendations -recommended multiphasic CT angio of the abdomen and pelvis with and without contrast if H/H drops and did not recommend IVC filter at this time as the DVTs are infrapopliteal and recommends a follow-up DVT study weekly for 2 weeks. Repeat venous duplex ultrasound on 11/21 showed progression of left peroneal DVT extending into popliteal vein. Vascular surgery completed IVC filter placement on 11/22. -Trend CBC -SCDs to BLE while in bed -Transfuse hemoglobin less than 7 -Monitor for signs of bleeding -Hemoglobin stable, 8.6 Hypertension, not able be controlled Increase losartan 200 mg daily and add hydralazine as needed. Hyperglycemia ,resolved) -Avoid hypoglycemia -Hbg A1C 6.7 -SSI and lantus q hs (titrate as needed) -Accu-Cheks q. 6 Morbid obesity High risk for KOLBY On nightly BiPAP Deconditioning PT/OT Hospital Course to Date: 10/30: Intubated and sedated, on fentanyl gtt. Open eyes spontaneously but does not follow any commands. On vasopressors, titrate as tolerated for MAP above 65. Patient febrile overnight, continue empiric IV Abx, culture data and COVID PCR pending. Patient is also s/p CT placement due to spontaneous pneumothorax. 2D echo is pending and Cardiology is consulted. 10/31: Patient remains intubated and following commands. Levophed drip stopped and potassium repleted. Patient started on tube feeding. Remains in soft bilateral restraints. 11/01: RN noted ST changes on BSM and 12 lead EKG obtained which showed ST. Given Ativan 1mg for agitation as she is maxed on fentanyl drip and IV push fentanyl did not seem to help. Patient was started on CPAP this morning by RT but remained on fentanyl drip and was having periods of apnea. Plan was to retry CPAP again in the p.m. with sedation off. 11/02: Rate increased r/t hypercapnea on ABG, sedation reduced. Given kionex for hyperkalemia and was started on levophed overnight for hypotension. 11/03: Overnight patient had tachycardia and was given Cardizem and Lopressor. Lopressor was repeated in the a.m. due to tachycardia. Patient will be started on amiodarone with a bolus per cardiology. Patient started on normal saline per liter per [facility] and steroids for angioedema. Noted to have bright red blood when suctioned from oh ETT. Remains on heparin drip as H/H is stable for now. Will reevaluate. Fentanyl drip was restarted last night due to agitation. Dr. Flores updated family today 11/04: Patient was sedated on fentanyl however off sedation is able to follow commands, a.m. labs completed in the p.m. and show hyperkalemia with increased renal function studies. Nephrology, neurology consulted by [facility]. Given Kayexalate, insulin and D50 for hyperkalemia. Patient remains on amiodarone. 11/05: Patient needed to be sedated on fentanyl again to today. overnight krishna was replaced. Hyperkalemia->given kionex 60 for 5.6. Repeat K 6-> Dr. Grant informed and requested bumex, kionex, insulin, d50, calcium gluconate and sodium bicarb with repeat BMP in 2 hours which were placed. HR remains elevated. 11/06: Patient remained in atrial fibrillation/atrial flutter with heart rate in the 150s despite being on amnio drip and was given amnio bolus, Cardizem bolus and started on Cardizem drip by cardiology. Patient is on beta-blockers p.o. scheduled and to feedings changed to Nepro. Kayexalate was given in the morning by nephrology due to hyperkalemia. 11/07: Patient is only responsive to mild stimuli, precedex added in an attempt to wean off fentanyl gtt to better assess her mental status. Neurology also on consult, pending MRI and EEG. Patient remains in Aflutter this am, HR in the 80 to 90s, still on amiodarone and heparin gtt. 11/08: Fentanyl gtt is off, only on precedex gtt. Patient is still not following any commands. MRI brain and EEG completed. Neuro recommendations noted, sedatives agents decreased. FWF added for hypernatremia and low K repleted, repe at labs ordered. Placed a call and spoke with patient's daughter, Eva Brown . She was updated on patient's conditions and status. All questions and concerns were voiced at this time. 11/09: Patient is awake and alert this am, following commands and appropriate. Remains on precedex gtt, plan for possible PST today. Hypertensive overnight, meds adjusted by Cardio and PRN Hydralazine added for SBP greater than 160. CT dislodged overnight, CXR is stable with no significant change. F/U CXR in the am. Patient's daughter, Eva Brown, visited with patient. She was updated on patient's status and goal of care for today. All questions and concerns were voiced at this time. 11/10: Mentation remains intact, still on precedex gtt. This am CXR noted still with fluid overload s/p X1 dose of IV lasix, good response from IV lasix overnight. Hypernatremia improved, D5W d/dayday. Still with persistent hypokalemia, continue electrolytes replacement and frequent lab check. Daily IV lasix and aldactone added by Cardio. Patient is also with persistent low grade fevers overnight, leukocytosis with mild improvement this am. Will get a repeat sputum culture, hold off on IV abx for now. Consider ID consult if fevers and leukocytosis persist. Patient tolerated PST X4hrs yesterday. PST again today, plan to wean to extubate if tolerated. 11/11: IAM overnight. Off precedex gtt and tolerated PST this am. Plan to wean to extubate today. Additional IV lasix given, plan to keep patient at a net negative balance for better lung compliance. F/U CXR in the am. K improved this am, repeat BMP this afternoon since diuresing. Remains with low grade fevers, leukocytosis downtrending, will continue to monitor. Speech/PT/OT ordered 11/12: S/p extubation, now stable on 3L NC. This am CXR noted with no significant changes, lasix changed to IV X4days BID. Drop in H&H this am, and Lt. flank ecchymosis noted. Heparin gtt on hold for now and orders placed for 1 unit of PRBCs and Ct Abd/Pelvis w/o con to r/o retroperitoneal bleed. Pending speech swallow eval, keep patient NPO for now. Patient is stable for IMCU status 11/13: Patient with increased WOB and tachycardia this am, patient was placed on Bipap and precedex gtt was resumed. CXR with mild improvement. CT Abd/Pelvis also reviewed large hematomas noted at the Lt. retroperitoneum and left posterior lateral abdominal wall. Heparin gtt is already on hold, patient is hemodynamically stable. Vascular Surgery consulted for possible IVC filter eval. Patient s/p 2units of PRBCs, will continue to trend H&H and transfuse if hbg is less than 7. Worsening renal function this am, IF diuretic on hold for now. Patient is also febrile with spike in wbcs most likely reactive to bleed, will panculture and hold off on IV Abx for now. Patient also failed speech bedside swallow eval yesterday, NGT in placed plan to resume enteral nutrition 11/14: Patient had bilateral lower extremity Doppler ultrasound and vascular surgery has recommended multiphasic CT angio of the abdomen and pelvis with and without contrast if H/H drops and does not recommend IVC filter at this time as the DVTs are infrapopliteal and recommends a DVT study weekly for 2 weeks. FWF 250 q4 ml per nephro. Started on as needed Xanax and p.o. amiodarone. She did not pass her ST evaluation today. Will be transferred to [facility]. 11/15: Resting comfortably on encounter. Speech cleared for pureed diet. Remains on 3l satting 98 % on bedside encounter. Does not appear to be in respiratory distress. Will continue to hold AC, No ivc filter planned at this time. qweekly doppler to monitor for migration of DVT per vascular. If demonstrated, will consider IVC filter. CBC ordered for tomorrow, will continue monitoring in light of retroperitoneal hematoma. FWF increased by nephrology to 350cc q4hr d/t hypernatremia. UOP/renal function both improved. D/w cardiology, will continue amiodorone an additional 24hrs. Plan to change dosing of metoprolol. Continue to wean off of precedex. Continue xanax scheduled for anxiety. physical therapy recs noted, fernanda / ltac will discuss with CM. Continue IMCU monitoring. 11/16: Pulmonary congestion this AM. CXR ordered. Lasix 40 mg IV x 1 order this AM. Will monitor for 24 hrs. potential downgrade to medical floor tomorrow. 11/17: Persisting pulmonary congestion, was on bipap overnight into this AM. Will order additional lasix 40 mg IV x 2. CXR ordered for AM. Possible downgrade to floor tomorrow. Anticipate d/c sunday. 11/18: Patient seen and examined, continue weaning, will continue diuresis BID, discussed with daughter. 11/19: Patient seen and examined this morning doing well no acute distress noted. Lasix was increased to twice daily to 20 mg IV. Clinically improving. Patient will be transferred to telemetry today can be switched to Lasix p.o. twice daily in a.m. She has her weekly Doppler of lower extremity tomorrow vascular is following for this. She was taken off anticoagulation secondary to retroperitoneal bleed., The anticoagulation was started initially for atrial fibrillation and an infrapopliteal DVT. During her hospital stay she had a prolonged ventilator management and was successfully weaned off. She also received a total of 4 units of packed red blood cell. Hemoglobin has remained stable. Anticipate discharge in next 48 hours if continues to clinically stay stable. : Transferred from ICU on 11/19. Progressive improving. Currently awake and oriented. O2 weaned to 4 L. Hemodynamically stable. BP control being optimized. MiraLAX for constipation. Hemoglobin stable on the heparin infusion, being monitored closely with history of retroperitoneal bleed. 11/21: Patient remains mostly bedridden. She is awake and oriented on 2 L of O2. Repeat ultrasound showed extension of left peroneal DVT into popliteal vein. Heparin was discontinued for significant retroperitoneal bleed and off anticoagulation since. Vascular surgery plan for placement of IVC filter tomorrow. Patient is chest pains, palpitations, hemoptysis. She has some cough. Left lower extremity pain likely from DVT better today. Discussed with the patient, nursing staff and vascular surgery. 11/22: The infrapopliteal vein thrombosis has propagated to the left popliteal vein. Vascular surgery to perform IVC filter placement today. 11/23: Vascular surgery placed IVC filter yesterday. Continue metoprolol 100 mg p.o. twice daily, Aldactone 25 mg p.o. daily and losartan 25 mg p.o. daily. Patient still requiring BiPAP (IPAP18, EPAP8) with FiO2 of 30%. Continue to wean oxygen per pulmonary recommendations. Nurse reports patient is having vaginal bleeding. We will check serial CBC and pelvic ultrasound 11/24: I discussed with cardiology yesterday the need for a LifeVest. LifeVest is ordered and pending. Patient is s/p IVC filter placement. Continue metoprolol 100 mg p.o. twice daily, Aldactone 25 mg p.o. daily and losartan 25 mg p.o. da amy. Patient still requiring BiPAP (IPAP18, EPAP8) with FiO2 of 30%. Continue to wean oxygen per pulmonary recommendations. No further reports of vaginal bleeding. Pelvic ultrasound negative 11/25: Awaiting for LifeVest. Patient is s/p IVC filter placement. Continue metoprolol 100 mg p.o. twice daily, Aldactone 25 mg p.o. daily and losartan 25 mg p.o. daily. Patient still requiring BiPAP (IPAP18, EPAP8) with FiO2 of 30%. Continue to wean oxygen per pulmonary recommendations. 11/26: Physical therapy recommends subacute rehab. Still awaiting LifeVest. Patient is s/p IVC filter placement. Continue metoprolol 100 mg p.o. twice daily, Aldactone 25 mg p.o. daily and losartan 25 mg p.o. daily. Patient still requiring BiPAP (IPAP18, EPAP8) with FiO2 of 30% at night. Continue to wean oxygen per pulmonary recommendations. Patient currently with 2 L O2. History Interval history: No new issues overnight. Hospitalist Physical - Constitutional Vitals: Temp Pulse Resp BP Pulse Ox 98.7 F 73 17 154/82 96 11/26/21 07:30 11/26/21 07:30 11/26/21 07:30 11/26/21 07:30 11/26/21 07:30 General appearance: Present: no acute distress, obese (Morbidly obese) - EENT Eyes: Present: PERRL, EOM intact ENT: hearing intact, clear oral mucosa, dentition normal - Neck Neck: Present: supple, normal ROM - Respiratory Respiratory effort: normal Respiratory: bilateral: CTA - Cardiovascular Rhythm: regular Heart Sounds: Present: S1 & S2. Absent: gallop, rub - Extremities Extremities: no ischemia, No edema, Full ROM - Abdominal General gastrointestinal: soft, non-tender, non-distended, normal bowel sounds - Integumentary Integumentary: Present: clear, warm, dry - Neurologic Neurologic: CNII-XII intact, moves all extremities HEART Score - HEART Score Troponin: Troponin T 1.150 ng/mL (0.00-0.029) H* D 10/29/21 22:34 Results - Labs CBC & Chem 7: 11/24/21 07:19 11/24/21 07:19 Labs: Laboratory Last Values WBC 10.6 K/mm3 (4.5-11.0) 11/24/21 07:19 RBC 3.12 M/mm3 (3.65-5.03) L 11/24/21 07:19 Hgb 9.3 gm/dl (10.1-14.3) L 11/24/21 07:19 Hct 27.2 % (30.3-42.9) L 11/24/21 07:19 MCV 87 fl (79-97) 11/24/21 07:19 MCH 30 pg (28-32) 11/24/21 07:19 MCHC 34 % (30-34) 11/24/21 07:19 RDW 16.0 % (13.2-15.2) H 11/24/21 07:19 Plt Count 255 K/mm3 (140-440) 11/24/21 07:19 Lymph % (Auto) 10.3 % (13.4-35.0) L 11/24/21 07:19 Alfalfa % (Auto) 10.0 % (0.0-7.3) H 11/24/21 07:19 Eos % (Auto) 3.7 % (0.0-4.3) 11/24/21 07:19 Baso % (Auto) 0.8 % (0.0-1.8) 11/24/21 07:19 Lymph # (Auto) 1.1 K/mm3 (1.2-5.4) L 11/24/21 07:19 Alfalfa # (Auto) 1.1 K/mm3 (0.0-0.8) H 11/24/21 07:19 Eos # (Auto) 0.4 K/mm3 (0.0-0.4) 11/24/21 07:19 Baso # (Auto) 0.1 K/mm3 (0.0-0.1) 11/24/21 07:19 Add Manual Diff Complete 11/07/21 06:30 Total Counted 100 11/07/21 06:30 Seg Neutrophils % 75.2 % (40.0-70.0) H 11/24/21 07:19 Seg Neuts % (Manual) 77.0 % (40.0-70.0) H 11/07/21 06:30 Band Neutrophils % 1.0 % 11/07/21 06:30 Lymphocytes % (Manual) 11.0 % (13.4-35.0) L 11/07/21 06:30 Reactive Lymphs % (Man) 3.0 % 11/07/21 06:30 Monocytes % (Manual) 2.0 % (0.0-7.3) 11/07/21 06:30 Eosinophils % (Manual) 0 % (0.0-4.3) 11/07/21 06:30 Basophils % (Manual) 0 % (0.0-1.8) 11/07/21 06:30 Metamyelocytes % 1.0 % 11/07/21 06:30 Myelocytes % 5.0 % 11/07/21 06:30 Promyelocytes % 0 % 11/07/21 06:30 Blast Cells % 0 % 11/07/21 06:30 Nucleated RBC % 2.0 % (0.0-0.9) H 11/07/21 06:30 Seg Neutrophils # 7.9 K/mm3 (1.8-7.7) H 11/24/21 07:19 Seg Neutrophils # Man 12.3 K/mm3 (1.8-7.7) H 11/07/21 06:30 Band Neutrophils # 0.2 K/mm3 11/07/21 06:30 Lymphocytes # (Manual) 1.8 K/mm3 (1.2-5.4) 11/07/21 06:30 Abs React Lymphs (Man) 0.5 K/mm3 11/07/21 06:30 Monocytes # (Manual) 0.3 K/mm3 (0.0-0.8) 11/07/21 06:30 Eosinophils # (Manual) 0.0 K/mm3 (0.0-0.4) 11/07/21 06:30 Basophils # (Manual) 0.0 K/mm3 (0.0-0.1) 11/07/21 06:30 Metamyelocytes # 0.2 K/mm3 11/07/21 06:30 Myelocytes # 0.8 K/mm3 11/07/21 06:30 Promyelocytes # 0.0 K/mm3 11/07/21 06:30 Blast Cells # 0.0 K/mm3 11/07/21 06:30 WBC Morphology Not Reportable 11/07/21 06:30 Hypersegmented Neuts Not Reportable 11/07/21 06:30 Hyposegmented Neuts Not Reportable 11/07/21 06:30 Hypogranular Neuts Not Reportable 11/07/21 06:30 Smudge Cells Not Reportable 11/07/21 06:30 Toxic Granulation Not Reportable 11/07/21 06:30 Toxic Vacuolation Not Reportable 11/07/21 06:30 Dohle Bodies Not Reportable 11/07/21 06:30 Pelger-Huet Anomaly Not Reportable 11/07/21 06:30 Manny Rods Not Reportable 11/07/21 06:30 Platelet Estimate Consistent w auto 11/07/21 06:30 Clumped Platelets Not Reportable 11/07/21 06:30 Plt Clumps, EDTA Not Reportable 11/07/21 06:30 Large Platelets 1+ 11/07/21 06:30 Giant Platelets Not Reportable 11/07/21 06:30 Platelet Satelliting Not Reportable 11/07/21 06:30 Plt Morphology Comment Not Reportable 11/07/21 06:30 RBC Morphology Not Reportable 11/07/21 06:30 Dimorphic RBCs Not Reportable 11/07/21 06:30 Polychromasia Not Reportable 11/07/21 06:30 Hypochromasia 1+ 11/07/21 06:30 Poikilocytosis Not Reportable 11/07/21 06:30 Anisocytosis Not Reportable 11/07/21 06:30 Microcytosis Not Reportable 11/07/21 06:30 Macrocytosis Not Reportable 11/07/21 06:30 Spherocytes 1+ 11/07/21 06:30 Pappenheimer Bodies Not Reportable 11/07/21 06:30 Sickle Cells Not Reportable 11/07/21 06:30 Target Cells 1+ 11/07/21 06:30 Tear Drop Cells Not Reportable 11/07/21 06:30 Ovalocytes Not Reportable 11/07/21 06:30 Helmet Cells Not Reportable 11/07/21 06:30 Mar[place] Bodies Not Reportable 11/07/21 06:30 [place] Rings Not Reportable 11/07/21 06:30 [place] Cells Not Reportable 11/07/21 06:30 Bite Cells Not Reportable 11/07/21 06:30 Crenated Cell Not Reportable 11/07/21 06:30 Elliptocytes Not Reportable 11/07/21 06:30 Acanthocytes (Spur) Not Reportable 11/07/21 06:30 Rouleaux Not Reportable 11/07/21 06:30 Hemoglobin C Crystals Not Reportable 11/07/21 06:30 Schistocytes Not Reportable 11/07/21 06:30 Malaria parasites Not Reportable 11/07/21 06:30 Magdy Bodies Not Reportable 11/07/21 06:30 Hem Pathologist Commnt No 11/07/21 06:30 PT 17.2 Sec. (12.2-14.9) H 10/30/21 16:30 INR 1.27 (0.87-1.13) H 10/30/21 16:30 APTT 44.4 Sec. (24.2-36.6) H 10/30/21 16:30 D-Dimer > 26652 ng/mlDDU (0-234) H 10/30/21 Unknown Heparin Anti-Xa Level 0.62 U.I./ml (0.3-0.7) 11/12/21 03:30 ABG pH 7.475 pH Units (7.350-7.450) H 11/11/21 13:53 ABG pCO2 45.0 mm Hg 11/11/21 13:53 ABG pO2 64.1 mm Hg (80.0-90.0) L 11/11/21 13:53 ABG HCO3 32.4 mmol/L (20.0-26.0) H 11/11/21 13:53 ABG O2 Saturation 96.3 % (95.0-99.0) 11/11/21 13:53 ABG O2 Content 10.1 (0.0-44) 11/11/21 13:53 ABG Base Excess 8.0 mmol/L (-2.0-3.0) H 11/11/21 13:53 ABG Hemoglobin 7.6 gm/dl (12.0-16.0) L 11/11/21 13:53 ABG Carboxyhemoglobin 1.8 % (0.0-5.0) 11/11/21 13:53 ABG Methemoglobin 0.5 % (0.0-1.5) 11/11/21 13:53 Oxyhemoglobin 94.0 % (95.0-99.0) L 11/11/21 13:53 FiO2 32 % 11/11/21 13:53 Sodium 138 mmol/L (137-145) 11/24/21 07:19 Potassium 3.2 mmol/L (3.6-5.0) L 11/24/21 07:19 Chloride 96.7 mmol/L (98-107) L 11/24/21 07:19 Carbon Dioxide 30 mmol/L (22-30) 11/24/21 07:19 Anion Gap 15 mmol/L 11/24/21 07:19 BUN 10 mg/dL (7-17) 11/24/21 07:19 Creatinine 1.0 mg/dL (0.6-1.2) 11/24/21 07:19 Estimated GFR > 60 ml/min 11/24/21 07:19 BUN/Creatinine Ratio 10 % 11/24/21 07:19 Glucose 125 mg/dL (65-100) H 11/24/21 07:19 POC Glucose 158 mg/dL (70-105) H 11/26/21 07:33 Hemoglobin A1c 6.7 % (4-6) H 10/31/21 04:30 Lactic Acid 0.70 mmol/L (0.7-2.0) 10/31/21 15:45 Calcium 8.7 mg/dL (8.4-10.2) 11/24/21 07:19 Phosphorus 3.10 mg/dL (2.5-4.5) 11/19/21 14:38 Magnesium 1.60 mg/dL (1.7-2.3) L 11/19/21 14:38 Ferritin 208.4 ng/mL (10.0-200.0) H 10/30/21 Unknown Total Bilirubin < 0.20 mg/dL (0.1-1.2) 11/06/21 02:35 AST 21 units/L (5-40) 11/06/21 02:35 ALT 77 units/L (7-56) H 11/06/21 02:35 Alkaline Phosphatase 84 units/L (35-129) 11/06/21 02:35 Ammonia 31.0 umol/L (25-60) 10/29/21 15:10 Lactate Dehydrogenase 469 units/L (91-180) H 10/30/21 Unknown Troponin T 1.150 ng/mL (0.00-0.029) H* D 10/29/21 22:34 C-Reactive Protein 13.40 mg/dL (0.00-1.30) H 10/30/21 Unknown Total Protein 6.3 g/dL (6.3-8.2) 11/06/21 02:35 Albumin 3.0 g/dL (3.9-5) L 11/06/21 02:35 Albumin/Globulin Ratio 0.9 % 11/06/21 02:35 Triglycerides 68 mg/dL (2-149) 10/29/21 19:40 Cholesterol 98 mg/dL (50-199) 10/29/21 19:40 LDL Cholesterol Direct 43 mg/dL (50-130) L 10/29/21 19:40 HDL Cholesterol 50 mg/dL (40-59) 10/29/21 19:40 Cholesterol/HDL Ratio 1.96 % 10/29/21 19:40 Procalcitonin 61.95 ng/mL (<0.15) 10/30/21 Unknown TSH 3.080 mlU/mL (0.270-4.200) 10/29/21 15:10 Urine Color Yellow (Yellow) 11/13/21 08:30 Urine Turbidity Slightly-cloudy (Clear) 11/13/21 08:30 Urine pH 6.0 (5.0-7.0) 11/13/21 08:30 Ur Specific [place] 1.010 (1.003-1.030) 11/13/21 08:30 Urine Protein <15 mg/dl mg/dL (Negative) 11/13/21 08:30 Urine Glucose (UA) Neg mg/dL (Negative) 11/13/21 08:30 Urine Ketones Tr mg/dL (Negative) 11/13/21 08:30 Urine Blood Sm (Negative) 11/13/21 08:30 Urine Nitrite Neg (Negative) 11/13/21 08:30 Urine Bilirubin Neg (Negative) 11/13/21 08:30 Urine Urobilinogen < 2.0 mg/dL (<2.0) 11/13/21 08:30 Ur Leukocyte Esterase Neg (Negative) 11/13/21 08:30 Urine WBC (Auto) < 1.0 /HPF (0.0-6.0) 11/13/21 08:30 Urine RBC (Auto) < 1.0 /HPF (0.0-6.0) 11/13/21 08:30 U Epithel Cells (Auto) < 1.0 /HPF (0-13.0) 11/13/21 08:30 Urine Mucus Few /HPF 10/29/21 18:15 Urine Eosinophils None seen (None Seen) 11/04/21 Unknown Urine Creatinine 190.9 mg/dL (0.1-20.0) H 11/04/21 Unknown Protein/Creatinin Ratio 0.90 11/04/21 Unknown Urine Sodium 10 mmol/L 11/04/21 Unknown Urine Total Protein 172 mg/dL (5-11.8) H 11/04/21 Unknown Salicylates < 0.3 mg/dL (2.8-20.0) L 10/29/21 15:10 Urine Opiates Screen Negative 10/29/21 18:15 Urine Methadone Screen Negative 10/29/21 18:15 Acetaminophen 5.0 ug/mL (10.0-30.0) L 10/29/21 15:10 Ur Barbiturates Screen Negative 10/29/21 18:15 Ur Phencyclidine Scrn Negative 10/29/21 18:15 Ur Amphetamines Screen Negative 10/29/21 18:15 U Benzodiazepines Scrn Negative 10/29/21 18:15 Urine Cocaine Screen Negative 10/29/21 18:15 U Marijuana (THC) Screen Negative 10/29/21 18:15 Drugs of Abuse Note Disclamer 10/29/21 18:15 Plasma/Serum Alcohol < 0.01 % (0-0.07) 10/29/21 15:10 Coronavirus (PCR) Negative (Negative) 10/30/21 Unknown Blood Type O POSITIVE 11/12/21 04:15 Antibody Screen Negative 11/12/21 04:15 Crossmatch See Detail 11/12/21 04:15 Krishna/IV: Voiding Method External Female Catheter Active Medications - Current Medications Current Medications: Generic Name Dose Route Start Last Admin Trade Name Freq PRN Reason Stop Dose Admin Acetaminophen 650 mg 10/29/21 17:04 11/12/21 22:53 Acetaminophen [address] 650 mg Q6H PRN Administration Pain MILD(1-3)/Fever >100.5/NIEVES Acetaminophen 650 mg 11/19/21 16:35 11/26/21 10:09 Acetaminophen 325 Mg Tab PO 650 mg Q6HR PRN Administration PAIN Alprazolam 0.25 mg 11/14/21 14:29 11/22/21 21:57 Alprazolam 0.25 Mg Tab PO 0.25 mg Q8H PRN Administration Anxiety Dextrose 0 ml 11/04/21 13:48 11/12/21 05:45 Dextrose 10% *Hypoglycemia IV 50 ml PRN PRN Administration Hypoglycemia Docusate Sodium 100 mg 11/18/21 15:00 11/26/21 09:57 Docusate Sodium 100 Mg Cap PO 100 mg BID RAMON Administration Famotidine 10 mg 11/06/21 10:00 11/26/21 09:57 Famotidine 10 Mg Tab PO 10 mg BID RAMON Administration Furosemide 20 mg 11/18/21 10:00 11/26/21 09:57 Furosemide 20 Mg/2 Ml Inj IV 20 mg BID RAMON Administration Hydralazine HCl 50 mg 11/22/21 22:00 11/26/21 06:10 Hydralazine 25 Mg Tab PO 50 mg Q8HR RAMON Administration Hydrophilic Ointment 1 applic 10/29/21 14:29 11/09/21 08:51 Lip Therapy Vaseline TP 1 applic Q2HR PRN Administration Dry Lips Insulin Human Lispro 0 unit 11/25/21 22:00 11/26/21 08:30 Insulin Lispro 100 Unit/Ml SUB-Q 2 unit ACHS RAMON Administration Protocol Lactulose 20 gm 11/18/21 14:43 11/18/21 15:06 Lactulose 20 Gm/30 Ml Oral Liqd PO 20 gm Q6H PRN Administration Constipation Losartan Potassium 50 mg 11/20/21 11:00 11/26/21 09:57 Losartan 25 Mg Tab PO 50 mg BID RAMON Administration Melatonin 10 mg 11/22/21 17:31 11/25/21 21:45 Melatonin 5 Mg Tab PO 10 mg QHS PRN Administration Sleep Metoprolol Tartrate 100 mg 11/16/21 22:00 11/26/21 09:57 Metoprolol Tartrate 100 Mg Tab PO 100 mg BID RAMON Administration Multi-Ingred Cream/Lotion/Oil/Oint 1 applic 10/29/21 14:29 11/06/21 09:25 Mineral Oil/Petrolatum, White Ophth Oint 3.5 Gm OU 1 applic Q4HR PRN Administration Dry Eye(s) Polyethylene Glycol 17 gm 11/20/21 12:47 11/25/21 08:30 Polyethylene Glycol 3350 17 Gm Powder PO 17 gm QDAY PRN Administration Constipation Senna/Docusate Sodium 1 tab 11/16/21 22:00 11/26/21 09:57 Sennosides/Docusate Sodium 8.6/50 Mg Tab PO 1 tab BID RAMON Administration Sodium Chloride 10 ml 10/29/21 22:00 11/26/21 09:58 Sodium Chloride 0.9% 10 Ml Flush Syringe IV 10 ml BID RAMON Administration Sodium Chloride 10 ml 10/29/21 17:04 Sodium Chloride 0.9% 10 Ml Flush Syringe IV PRN PRN LINE FLUSH Spironolactone 25 mg 11/10/21 10:00 11/26/21 09:57 Spironolactone 25 Mg Tab PO 25 mg QDAY RAMON Administration Nutrition/Malnutrition Assess - Dietary Evaluation Nutrition/Malnutrition Findings: Nutrition Notes Start: 10/30/21 09:50 Freq: Status: Active Protocol: Document 11/25/21 19:04 MEENU (Rec: 11/25/21 19:16 MEENU [id number]) Nutrition Notes Initial or Follow up Reassessment Current Diagnosis Sepsis,Hypertension, Respiratory Failure Other Pertinent Diagnosis s/p Cardiac Arrest, DVT, Anemia, Pneumonia, Pneumothorax, P Edema, HFrEF.. . Current Diet Mechanical Soft Diet (since B 11/22). Labs/Tests 11/24: K 3.2, Cl 96.7, Glu 125 . Pertinent Medications 11/25: Nutritionally unremarkable. Height 5 ft 10 in Weight 109.5 kg [place] Body Weight (kg) 68.18 BMI 34.6 Weight change and time frame 2.5 Kg body weight loss in 1 week reported. Weight Status Obese Subjective/Other Information RD consulr for routine F/U on Diet tolerance/advancement. Diet has advanced to Mechanical Soft. Pt's PO intake of meals has been Fair (50-75%), according to ADL notes. Percent of energy/protein needs met: Prescribed Mechanical Soft Diet provides for energy/ protein needs (2,048 Kcal/97 g ) during LOS. Burn Absent Trauma Absent GI Symptoms None Food Allergy No Skin Integrity/Comment Assessment WNL. Current % PO Fair (50-74%) Minimum of two criteria No #1 Nutrition Diagnosis Inadequate oral intake Comments: Pt's PO intake of meals has been Fair (50-75%), according to ADL notes. Diet advanced to Mechanical Soft. Diagnosis Progress(for reassessment Improved documentation) Is patient on ventilator? No Is Patient Ambulatory and/or Out of Bed No REE-([facility]-confined to bed) [phone] Kcal/Kg value to use for calculation 15 Approximate Energy Requirements Using 1643 kcal/Kg Calculation Used for Recommendations Kcal/kg Additional Notes Protein: 0.8-1.2 g/Kg IBW; 70- 105 g/day. Fluids: 1 ml/Kcal, or as per MD. Nutrition Intervention Change Diet Order: Continue Mechanical Soft Diet. Goal #1 Maintain body weight within +/ -3% of admission body weight during LOS. Goal #2 Facilitate PO intake of meals with mechanical modification during LOS. Follow-Up By: 12/02/21 Additional Comments Continue monitoring food tolerance, %PO intake of meals , and BM.
--- NOTE | 2021-11-26 18:16 | Progress Note ---
Assessment and Plan 66 YO Female with Obesity presents to ED for evaluation. Patient is intubated and on ventilatory support . Patient was attending [facility] services when the patient collapsed and lost consciousness. Witnesses began CPR. EMS was notified and upon arrival the patient was found to be in distress without perfusing cardiac rhythm. Patient initiated on ACLS protocol and subsequently intubated in the field and subsequent transported to [facility] for further care and evaluation of the aforementioned symptoms. The patient regained spontaneous ci rculation during transport. Patient seen and evaluated upon arrival and found to have acute hypoxemic respiratory failure, septic shock suspected secondary to aspiration pneumonia, metabolic acidosis, toxic metabolic encephalopathy, shock liver, and cardiac arrest with return of perfusing cardiac rhythm after initiation of ACLS protocol. Patient initiated on sepsis protocol as well as pneumonia protocol. Patient admitted to ICU. No reports of fever, chills, chest pain, palpitation, productive cough, skin rash, recent contact, known exposure to COVID-19. Patient has history of diabetes and hypertension. According to the chart review, patient has no history of smoking, alcohol or drug abuse. Patient eventually extubated. Patient transfered to Telemetry. Patient presently on 2 litres O2. O2 saturation 100%.BIPAP 18/8, Rate 14, FIO2 30% stand by in the room. Patient Obese , Sleeping but arousable. No acute respiratory distress. No complaint of chest pain, shortness of breath. Complaining slight cough. Patient afebrile. No leukocytosis. Blood pressure 120/68, pulse 71, Respir ations 19. Patient using chest vest. Chest xray done 11/18/21 reported Improving interstitial edema. Bilateral duplex study of legs 11/21/21 reported Acute occlusive thrombus is now visualized within the right peroneal veins. There is propagation of the left calf DVT into the popliteal vein on today's exam (near occlusive). Patient presently on Lasix and famotidine. According to vascular note anti coagulation contraindicated because of retroperitoneal bleed. DVT management as per vascular surgery. - Patient Problems (1) Acute hypoxemic respiratory failure Current Visit: Yes Status: Acute Plan to address problem: Patient presently on 2 litres O2. O2 saturation 100%. BIPAP 18/8, rate 14, FIO2 30% stand by in the room. According to vascular note anti coagulation contraindicated because of retroperitoneal bleed. Continue famotidine. (2) Cardiopulmonary arrest Current Visit: Yes Status: Acute Plan to address problem: S/P Resucitation to ROSC. (3) Atrial fibrillation and flutter Current Visit: Yes Status: Acute Plan to address problem: Management as per cardiology. (4) Acute metabolic encephalopathy Current Visit: Yes Status: Acute Plan to address problem: Management as per primary care. (5) Acute kidney injury Current Visit: Yes Status: Acute Plan to address problem: Management as per nephrology. (6) DVT (deep venous thrombosis) Current Visit: Yes Status: Acute Qualifiers: Affected thrombotic vein of extremity: peroneal Plan to address problem: According to vascular note anti coagulation contraindicated because of retroperitoneal bleed. Management as per vascular surgery. (7) Obesity hypoventilation syndrome Current Visit: Yes Status: Acute Plan to address problem: BIPAP during night time and prn for sleepiness and shortness of breath during day time. BIPAP 18/8, Rate 14, FIO2 30% (8) Pneumothorax, right Current Visit: Yes Status: Acute Plan to address problem: S/P chest tube placement and expansion of right lung. Subjective Date of service: 11/26/21 Principal diagnosis: AHRF; Cardiac arrest; R. pneumothorax; pneumonia; AMS; DVT's; SIERRA; Obesity Interval history: 66 YO Female with Obesity presents to ED for evaluation. Patient is intubated a nd on ventilatory support . Patient was attending [facility] services when the patient collapsed and lost consciousness. Witnesses began CPR. EMS was notified and upon arrival the patient was found to be in distress without perfusing cardiac rhythm. Patient initiated on ACLS protocol and subsequently intubated in the field and subsequent transported to [facility] for further care and evaluation of the aforementioned symptoms. The patient regained spontaneous circulation during transport. Patient seen and evaluated upon arrival and found to have acute hypoxemic respiratory failure, septic shock suspected secondary to aspiration pneumonia, metabolic acidosis, toxic metabolic encephalopathy, shock liver, and cardiac arrest with return of perfusing cardiac rhythm after initiation of ACLS protocol. Patient initiated on sepsis protocol as well as pneumonia protocol. Patient admitted to ICU. No reports of fever, chills, chest pain, palpitation, productive cough, skin rash, recent contact, known exposure to COVID-19. Patient has history of diabetes and hypertension. According to the chart review, patient has no history of smoking, alcohol or drug abuse. Patient eventually extubated. Patient transfered to Telemetry. Patient presently on 2 litres O2. O2 saturation 100%.BIPAP 18/8, Rate 14, FIO2 30% stand by in the room. Patient Obese , Sleeping but arousable. No acute respiratory distress. No complaint of chest pain, shortness of breath. Complaining slight cough. Patient afebrile. No leukocytosis. Blood pressure 120/68, pulse 71, Respirations 19. Patient using chest vest. Chest xray done 11/18/21 reported Improving interstitial edema. Bilateral duplex study of legs 11/21/21 reported Acute occlusive thrombus is now visualized within the right peroneal veins. There is propagation of the left calf DVT into the popliteal vein on today's exam (near occlusive). Patient presently on Lasix and famotidine. According to vascular note anti coagulation contraindicated because of retroperitoneal bleed. DVT Management as per vascular surgery. Objective Vital Signs - 12hr 11/26/21 11/26/21 11/26/21 07:30 10:00 11:19 Temperature 98.7 F 98.5 F Pulse Rate 73 72 62 Pulse Rate [ 72 Right Radial] Respiratory 17 18 18 Rate Blood Pressure 154/82 121/77 O2 Sat by Pulse 96 98 100 Oximetry 11/26/21 11/26/21 14:09 17:05 Temperature 98.6 F Pulse Rate 74 Pulse Rate [ Right Radial] Respiratory 17 Rate Blood Pressure 121/77 134/82 O2 Sat by Pulse 98 Oximetry Constitutional: no acute distress, alert, other (elderly obese female with mildly increased respiratory effort at rest ) Eyes: non-icteric ENT: oropharynx moist Neck: supple, no lymphadenopathy, no JVD, other (large circumference) Effort: mildly labored Ascultation: Bilateral: diminished breath sounds, rhonchi (scant) Percussion: Bilateral: not dull Cardiovascular: irregular rhythm, other (no R/M) Gastrointestinal: normoactive bowel sounds, soft, non-tender, other (obese) Integumentary: normal, other (Left flank ecchymosis with induration) Extremities: no cyanosis, pulses normal, no ischemia or petechiae, edema (2+) Neurologic: normal mental status, non-focal exam (grossly), pupils equal and round, motor strength normal and (weak) Psychiatric: mood appropriate, affect normal CBC and BMP: 11/24/21 07:19 11/24/21 07:19 ABG, PT/INR, D-dimer: ABG ABG pH 7.475 pH Units (7.350-7.450) H 11/11/21 13:53 ABG pCO2 45.0 mm Hg 11/11/21 13:53 ABG pO2 64.1 mm Hg (80.0-90.0) L 11/11/21 13:53 ABG O2 Saturation 96.3 % (95.0-99.0) 11/11/21 13:53 PT/INR, D-dimer PT 17.2 Sec. (12.2-14.9) H 10/30/21 16:30 INR 1.27 (0.87-1.13) H 10/30/21 16:30 D-Dimer > 13338 ng/mlDDU (0-234) H 10/30/21 Unknown Abnormal lab findings: Abnormal Labs 10/29/21 10/29/21 10/29/21 15:10 15:10 15:10 WBC 27.8 H RBC Hgb Hct MCH 27 L RDW Plt Count Lymph % (Auto) [place] % (Auto) Lymph # (Auto) [place] # (Auto) Seg Neutrophils % Seg Neuts % (Manual) 78.0 H Lymphocytes % (Manual) 10.0 L Nucleated RBC % Seg Neutrophils # Seg Neutrophils # Man 21.7 H Monocytes # (Manual) 1.4 H PT INR APTT D-Dimer Heparin Anti-Xa Level ABG pH ABG pO2 ABG HCO3 ABG O2 Saturation ABG Base Excess ABG Hemoglobin Oxyhemoglobin Sodium Potassium Chloride Carbon Dioxide BUN Creatinine Glucose POC Glucose Hemoglobin A1c Lactic Acid 6.80 H* Calcium Phosphorus Magnesium Ferritin AST ALT Alkaline Phosphatase Lactate Dehydrogenase Troponin T 0.089 H C-Reactive Protein Total Protein Albumin LDL Cholesterol Direct Urine Creatinine Urine Total Protein Salicylates Acetaminophen Crossmatch 10/29/21 10/29/21 10/29/21 15:10 15:10 15:10 WBC RBC Hgb Hct MCH RDW Plt Count Lymph % (Auto) [place] % (Auto) Lymph # (Auto) [place] # (Auto) Seg Neutrophils % Seg Neuts % (Manual) Lymphocytes % (Manual) Nucleated RBC % Seg Neutrophils # Seg Neutrophils # Man Monocytes # (Manual) PT INR APTT D-Dimer Heparin Anti-Xa Level ABG pH ABG pO2 ABG HCO3 ABG O2 Saturation ABG Base Excess ABG Hemoglobin Oxyhemoglobin Sodium 136 L Potassium 2.8 L* Chloride 93.4 L Carbon Dioxide 20 L BUN Creatinine Glucose 330 H POC Glucose Hemoglobin A1c Lactic Acid Calcium Phosphorus Magnesium Ferritin AST 1013 H ALT 1289 H Alkaline Phosphatase 246 H Lactate Dehydrogenase Troponin T C-Reactive Protein Total Protein Albumin LDL Cholesterol Direct Urine Creatinine Urine Total Protein Salicylates < 0.3 L Acetaminophen 5.0 L Crossmatch 10/29/21 10/29/21 10/29/21 15:11 16:01 19:29 WBC RBC Hgb Hct MCH RDW Plt Count Lymph % (Auto) [place] % (Auto) Lymph # (Auto) [place] # (Auto) Seg Neutrophils % Seg Neuts % (Manual) Lymphocytes % (Manual) Nucleated RBC % Seg Neutrophils # Seg Neutrophils # Man Monocytes # (Manual) PT INR APTT D-Dimer Heparin Anti-Xa Level ABG pH 7.307 L ABG pO2 64.1 L ABG HCO3 ABG O2 Saturation 90.8 L ABG Base Excess -2.9 L ABG Hemoglobin Oxyhemoglobin 89.3 L Sodium Potassium Chloride Carbon Dioxide BUN Creatinine Glucose POC Glucose Hemoglobin A1c Lactic Acid 2.60 H* Calcium Phosphorus Magnesium 2.90 H Ferritin AST ALT Alkaline Phosphatase Lactate Dehydrogenase Troponin T C-Reactive Protein Total Protein Albumin LDL Cholesterol Direct Urine Creatinine Urine Total Protein Salicylates Acetaminophen Crossmatch 10/29/21 10/29/21 10/30/21 19:40 22:34 04:30 WBC 16.2 H RBC Hgb Hct MCH 26 L RDW 15.5 H Plt Count Lymph % (Auto) 6.2 L [place] % (Auto) Lymph # (Auto) 1.0 L [place] # (Auto) 0.9 H Seg Neutrophils % 88.1 H Seg Neuts % (Manual) Lymphocytes % (Manual) Nucleated RBC % Seg Neutrophils # 14.2 H Seg Neutrophils # Man Monocytes # (Manual) PT INR APTT D-Dimer Heparin Anti-Xa Level ABG pH ABG pO2 ABG HCO3 ABG O2 Saturation ABG Base Excess ABG Hemoglobin Oxyhemoglobin Sodium Potassium Chloride Carbon Dioxide BUN Creatinine Glucose POC Glucose Hemoglobin A1c Lactic Acid Calcium Phosphorus Magnesium Ferritin AST ALT Alkaline Phosphatase Lactate Dehydrogenase Troponin T 1.950 H* D 1.150 H* D C-Reactive Protein Total Protein Albumin LDL Cholesterol Direct 43 L Urine Creatinine Urine Total Protein Salicylates Acetaminophen Crossmatch 10/30/21 10/30/21 10/30/21 04:30 04:35 05:45 WBC RBC Hgb Hct MCH RDW Plt Count Lymph % (Auto) [place] % (Auto) Lymph # (Auto) [place] # (Auto) Seg Neutrophils % Seg Neuts % (Manual) Lymphocytes % (Manual) Nucleated RBC % Seg Neutrophils # Seg Neutrophils # Man Monocytes # (Manual) PT INR APTT D-Dimer Heparin Anti-Xa Level ABG pH ABG pO2 69.5 L ABG HCO3 ABG O2 Saturation ABG Base Excess -2.7 L ABG Hemoglobin Oxyhemoglobin 94.7 L Sodium Potassium Chloride Carbon Dioxide 21 L BUN Creatinine Glucose 159 H POC Glucose 151 H Hemoglobin A1c Lactic Acid Calcium 7.9 L D Phosphorus Magnesium Ferritin AST 461 H ALT 686 H Alkaline Phosphatase 130 H Lactate Dehydrogenase Troponin T C-Reactive Protein Total Protein 5.6 L D Albumin 3.2 L LDL Cholesterol Direct Urine Creatinine Urine Total Protein Salicylates Acetaminophen Crossmatch 10/30/21 10/30/21 10/30/21 11:24 15:59 16:30 WBC RBC Hgb Hct MCH RDW Plt Count Lymph % (Auto) [place] % (Auto) Lymph # (Auto) [place] # (Auto) Seg Neutrophils % Seg Neuts % (Manual) Lymphocytes % (Manual) Nucleated RBC % Seg Neutrophils # Seg Neutrophils # Man Monocytes # (Manual) PT 17.2 H INR 1.27 H APTT 44.4 H D-Dimer Heparin Anti-Xa Level ABG pH ABG pO2 ABG HCO3 ABG O2 Saturation ABG Base Excess ABG Hemoglobin Oxyhemoglobin Sodium Potassium Chloride Carbon Dioxide BUN Creatinine Glucose POC Glucose 153 H 109 H Hemoglobin A1c Lactic Acid Calcium Phosphorus Magnesium Ferritin AST ALT Alkaline Phosphatase Lactate Dehydrogenase Troponin T C-Reactive Protein Total Protein Albumin LDL Cholesterol Direct Urine Creatinine Urine Total Protein Salicylates Acetaminophen Crossmatch 10/30/21 10/30/21 10/30/21 23:00 Unknown Unknown WBC RBC Hgb Hct MCH RDW Plt Count Lymph % (Auto) [place] % (Auto) Lymph # (Auto) [place] # (Auto) Seg Neutrophils % Seg Neuts % (Manual) Lymphocytes % (Manual) Nucleated RBC % Seg Neutrophils # Seg Neutrophils # Man Monocytes # (Manual) PT INR APTT D-Dimer > 19201 H Heparin Anti-Xa Level 0.82 H ABG pH ABG pO2 ABG HCO3 ABG O2 Saturation ABG Base Excess ABG Hemoglobin Oxyhemoglobin Sodium Potassium Chloride Carbon Dioxide BUN Creatinine Glucose POC Glucose Hemoglobin A1c Lactic Acid Calcium Phosphorus Magnesium Ferritin 208.4 H AST ALT Alkaline Phosphatase Lactate Dehydrogenase Troponin T C-Reactive Protein Total Protein Albumin LDL Cholesterol Direct Urine Creatinine Urine Total Protein Salicylates Acetaminophen Crossmatch 10/30/21 10/31/21 10/31/21 Unknown 04:30 04:30 WBC 14.4 H RBC Hgb Hct MCH 26 L RDW Plt Count Lymph % (Auto) [place] % (Auto) Lymph # (Auto) [place] # (Auto) Seg Neutrophils % Seg Neuts % (Manual) Lymphocytes % (Manual) Nucleated RBC % Seg Neutrophils # Seg Neutrophils # Man Monocytes # (Manual) PT INR APTT D-Dimer Heparin Anti-Xa Level ABG pH ABG pO2 ABG HCO3 ABG O2 Saturation ABG Base Excess ABG Hemoglobin Oxyhemoglobin Sodium Potassium 3.5 L Chloride 107.5 H Carbon Dioxide 20 L BUN 28 H Creatinine 1.7 H Glucose 113 H POC Glucose Hemoglobin A1c Lactic Acid Calcium 7.9 L Phosphorus Magnesium Ferritin AST ALT Alkaline Phosphatase Lactate Dehydrogenase 469 H Troponin T C-Reactive Protein 13.40 H Total Protein Albumin LDL Cholesterol Direct Urine Creatinine Urine Total Protein Salicylates Acetaminophen Crossmatch 10/31/21 10/31/21 10/31/21 04:30 05:11 15:30 WBC RBC Hgb Hct MCH RDW Plt Count Lymph % (Auto) [place] % (Auto) Lymph # (Auto) [place] # (Auto) Seg Neutrophils % Seg Neuts % (Manual) Lymphocytes % (Manual) Nucleated RBC % Seg Neutrophils # Seg Neutrophils # Man Monocytes # (Manual) PT INR APTT D-Dimer Heparin Anti-Xa Level ABG pH 7.222 L ABG pO2 61.5 L ABG HCO3 ABG O2 Saturation 86.2 L ABG Base Excess -6.3 L ABG Hemoglobin 11.2 L Oxyhemoglobin 84.5 L Sodium Potassium Chloride Carbon Dioxide BUN Creatinine Glucose POC Glucose 106 H Hemoglobin A1c 6.7 H Lactic Acid Calcium Phosphorus Magnesium Ferritin AST ALT Alkaline Phosphatase Lactate Dehydrogenase Troponin T C-Reactive Protein Total Protein Albumin LDL Cholesterol Direct Urine Creatinine Urine Total Protein Salicylates Acetaminophen Crossmatch 10/31/21 10/31/21 10/31/21 16:07 16:35 17:45 WBC RBC Hgb Hct MCH RDW Plt Count Lymph % (Auto) [place] % (Auto) Lymph # (Auto) [place] # (Auto) Seg Neutrophils % Seg Neuts % (Manual) Lymphocytes % (Manual) Nucleated RBC % Seg Neutrophils # Seg Neutrophils # Man Monocytes # (Manual) PT INR APTT D-Dimer Heparin Anti-Xa Level ABG pH 7.267 L ABG pO2 58.3 L ABG HCO3 ABG O2 Saturation 88.3 L ABG Base Excess -5.9 L ABG Hemoglobin 10.1 L Oxyhemoglobin 86.5 L Sodium Potassium Chloride Carbon Dioxide BUN Creatinine Glucose POC Glucose 115 H Hemoglobin A1c Lactic Acid Calcium Phosphorus Magnesium Ferritin AST ALT Alkaline Phosphatase Lactate Dehydrogenase Troponin T C-Reactive Protein Total Protein Albumin LDL Cholesterol Direct Urine Creatinine 383.6 H Urine Total Protein Salicylates Acetaminophen Crossmatch 11/01/21 11/01/21 11/01/21 00:06 05:08 06:00 WBC 12.6 H RBC 3.43 L Hgb 8.9 L Hct 28.7 L MCH 26 L RDW 15.7 H Plt Count 130 L Lymph % (Auto) [place] % (Auto) Lymph # (Auto) [place] # (Auto) Seg Neutrophils % Seg Neuts % (Manual) Lymphocytes % (Manual) Nucleated RBC % Seg Neutrophils # Seg Neutrophils # Man Monocytes # (Manual) PT INR APTT D-Dimer Heparin Anti-Xa Level ABG pH ABG pO2 ABG HCO3 ABG O2 Saturation ABG Base Excess ABG Hemoglobin Oxyhemoglobin Sodium Potassium Chloride Carbon Dioxide BUN Creatinine Glucose POC Glucose 114 H 120 H Hemoglobin A1c Lactic Acid Calcium Phosphorus Magnesium Ferritin AST ALT Alkaline Phosphatase Lactate Dehydrogenase Troponin T C-Reactive Protein Total Protein Albumin LDL Cholesterol Direct Urine Creatinine Urine Total Protein Salicylates Acetaminophen Crossmatch 11/01/21 11/01/21 11/01/21 06:00 11:43 14:00 WBC RBC Hgb Hct MCH RDW Plt Count Lymph % (Auto) [place] % (Auto) Lymph # (Auto) [place] # (Auto) Seg Neutrophils % Seg Neuts % (Manual) Lymphocytes % (Manual) Nucleated RBC % Seg Neutrophils # Seg Neutrophils # Man Monocytes # (Manual) PT INR APTT D-Dimer Heparin Anti-Xa Level ABG pH 7.349 L ABG pO2 75.6 L ABG HCO3 ABG O2 Saturation ABG Base Excess -3.9 L ABG Hemoglobin 9.8 L Oxyhemoglobin 93.5 L Sodium Potassium Chloride 114.1 H Carbon Dioxide 20 L BUN 33 H Creatinine Glucose 131 H POC Glucose 151 H Hemoglobin A1c Lactic Acid Calcium 7.7 L Phosphorus Magnesium Ferritin AST 79 H ALT 259 H Alkaline Phosphatase Lactate Dehydrogenase Troponin T C-Reactive Protein Total Protein 5.5 L Albumin 2.7 L LDL Cholesterol Direct Urine Creatinine Urine Total Protein Salicylates Acetaminophen Crossmatch 11/01/21 11/01/21 11/02/21 16:45 22:55 05:12 WBC RBC Hgb Hct MCH RDW Plt Count Lymph % (Auto) [place] % (Auto) Lymph # (Auto) [place] # (Auto) Seg Neutrophils % Seg Neuts % (Manual) Lymphocytes % (Manual) Nucleated RBC % Seg Neutrophils # Seg Neutrophils # Man Monocytes # (Manual) PT INR APTT D-Dimer Heparin Anti-Xa Level ABG pH ABG pO2 ABG HCO3 ABG O2 Saturation ABG Base Excess ABG Hemoglobin Oxyhemoglobin Sodium Potassium Chloride Carbon Dioxide BUN Creatinine Glucose POC Glucose 119 H 129 H 140 H Hemoglobin A1c Lactic Acid Calcium Phosphorus Magnesium Ferritin AST ALT Alkaline Phosphatase Lactate Dehydrogenase Troponin T C-Reactive Protein Total Protein Albumin LDL Cholesterol Direct Urine Creatinine Urine Total Protein Salicylates Acetaminophen Crossmatch 11/02/21 11/02/21 11/02/21 05:35 05:35 09:35 WBC 13.5 H RBC 3.60 L Hgb 9.7 L Hct MCH 27 L RDW 15.7 H Plt Count Lymph % (Auto) [place] % (Auto) Lymph # (Auto) [place] # (Auto) Seg Neutrophils % Seg Neuts % (Manual) Lymphocytes % (Manual) Nucleated RBC % Seg Neutrophils # Seg Neutrophils # Man Monocytes # (Manual) PT INR APTT D-Dimer Heparin Anti-Xa Level ABG pH 7.208 L ABG pO2 75.9 L ABG HCO3 ABG O2 Saturation 93.6 L ABG Base Excess -4.3 L ABG Hemoglobin 9.1 L Oxyhemoglobin 91.6 L Sodium Potassium 5.2 H D Chloride 112.6 H Carbon Dioxide BUN 32 H Creatinine Glucose 152 H POC Glucose Hemoglobin A1c Lactic Acid Calcium 8.2 L Phosphorus Magnesium 2.70 H Ferritin AST ALT Alkaline Phosphatase Lactate Dehydrogenase Troponin T C-Reactive Protein Total Protein Albumin LDL Cholesterol Direct Urine Creatinine Urine Total Protein Salicylates Acetaminophen Crossmatch 11/02/21 11/02/21 11/02/21 11:44 17:13 23:43 WBC RBC Hgb Hct MCH RDW Plt Count Lymph % (Auto) [place] % (Auto) Lymph # (Auto) [place] # (Auto) Seg Neutrophils % Seg Neuts % (Manual) Lymphocytes % (Manual) Nucleated RBC % Seg Neutrophils # Seg Neutrophils # Man Monocytes # (Manual) PT INR APTT D-Dimer Heparin Anti-Xa Level ABG pH ABG pO2 ABG HCO3 ABG O2 Saturation ABG Base Excess ABG Hemoglobin Oxyhemoglobin Sodium Potassium Chloride Carbon Dioxide BUN Creatinine Glucose POC Glucose 173 H 148 H 137 H Hemoglobin A1c Lactic Acid Calcium Phosphorus Magnesium Ferritin AST ALT Alkaline Phosphatase Lactate Dehydrogenase Troponin T C-Reactive Protein Total Protein Albumin LDL Cholesterol Direct Urine Creatinine Urine Total Protein Salicylates Acetaminophen Crossmatch 11/03/21 11/03/21 11/03/21 04:59 06:00 06:00 WBC RBC 3.43 L Hgb 9.1 L Hct 29.0 L MCH 26 L RDW 16.4 H Plt Count Lymph % (Auto) [place] % (Auto) Lymph # (Auto) [place] # (Auto) Seg Neutrophils % Seg Neuts % (Manual) Lymphocytes % (Manual) Nucleated RBC % Seg Neutrophils # Seg Neutrophils # Man Monocytes # (Manual) PT INR APTT D-Dimer Heparin Anti-Xa Level 0.17 L ABG pH ABG pO2 ABG HCO3 ABG O2 Saturation ABG Base Excess ABG Hemoglobin Oxyhemoglobin Sodium Potassium Chloride Carbon Dioxide BUN Creatinine Glucose POC Glucose 167 H Hemoglobin A1c Lactic Acid Calcium Phosphorus Magnesium Ferritin AST ALT Alkaline Phosphatase Lactate Dehydrogenase Troponin T C-Reactive Protein Total Protein Albumin LDL Cholesterol Direct Urine Creatinine Urine Total Protein Salicylates Acetaminophen Crossmatch 11/03/21 11/03/21 11/03/21 06:00 09:20 11:58 WBC RBC Hgb Hct MCH RDW Plt Count Lymph % (Auto) [place] % (Auto) Lymph # (Auto) [place] # (Auto) Seg Neutrophils % Seg Neuts % (Manual) Lymphocytes % (Manual) Nucleated RBC % Seg Neutrophils # Seg Neutrophils # Man Monocytes # (Manual) PT INR APTT D-Dimer Heparin Anti-Xa Level ABG pH 7.274 L ABG pO2 75.6 L ABG HCO3 ABG O2 Saturation 94.9 L ABG Base Excess -2.5 L ABG Hemoglobin 9.3 L Oxyhemoglobin 92.9 L Sodium 149 H Potassium Chloride 117.5 H Carbon Dioxide BUN 32 H Creatinine Glucose 173 H POC Glucose 192 H Hemoglobin A1c Lactic Acid Calcium 8.1 L Phosphorus Magnesium Ferritin AST ALT Alkaline Phosphatase Lactate Dehydrogenase Troponin T C-Reactive Protein Total Protein Albumin LDL Cholesterol Direct Urine Creatinine Urine Total Protein Salicylates Acetaminophen Crossmatch 11/03/21 11/03/21 11/04/21 18:22 Unknown 00:09 WBC RBC Hgb Hct MCH RDW Plt Count Lymph % (Auto) [place] % (Auto) Lymph # (Auto) [place] # (Auto) Seg Neutrophils % Seg Neuts % (Manual) Lymphocytes % (Manual) Nucleated RBC % Seg Neutrophils # Seg Neutrophils # Man Monocytes # (Manual) PT INR APTT D-Dimer Heparin Anti-Xa Level 0.29 L ABG pH ABG pO2 ABG HCO3 ABG O2 Saturation ABG Base Excess ABG Hemoglobin Oxyhemoglobin Sodium Potassium Chloride Carbon Dioxide BUN Creatinine Glucose POC Glucose 178 H 221 H Hemoglobin A1c Lactic Acid Calcium Phosphorus Magnesium Ferritin AST ALT Alkaline Phosphatase Lactate Dehydrogenase Troponin T C-Reactive Protein Total Protein Albumin LDL Cholesterol Direct Urine Creatinine Urine Total Protein Salicylates Acetaminophen Crossmatch 11/04/21 11/04/21 11/04/21 05:09 09:40 09:40 WBC 16.8 H RBC Hgb Hct MCH 27 L RDW 16.5 H Plt Count Lymph % (Auto) [place] % (Auto) Lymph # (Auto) [place] # (Auto) Seg Neutrophils % Seg Neuts % (Manual) Lymphocytes % (Manual) Nucleated RBC % Seg Neutrophils # Seg Neutrophils # Man Monocytes # (Manual) PT INR APTT D-Dimer Heparin Anti-Xa Level ABG pH ABG pO2 ABG HCO3 ABG O2 Saturation ABG Base Excess ABG Hemoglobin Oxyhemoglobin Sodium Potassium 5.9 H Chloride 108.5 H Carbon Dioxide BUN 54 H Creatinine 1.8 H Glucose 198 H POC Glucose 182 H Hemoglobin A1c Lactic Acid Calcium Phosphorus Magnesium 3.00 H Ferritin AST ALT Alkaline Phosphatase Lactate Dehydrogenase Troponin T C-Reactive Protein Total Protein Albumin LDL Cholesterol Direct Urine Creatinine Urine Total Protein Salicylates Acetaminophen Crossmatch 11/04/21 11/04/21 11/04/21 12:13 13:34 14:05 WBC RBC Hgb Hct MCH RDW Plt Count Lymph % (Auto) [place] % (Auto) Lymph # (Auto) [place] # (Auto) Seg Neutrophils % Seg Neuts % (Manual) Lymphocytes % (Manual) Nucleated RBC % Seg Neutrophils # Seg Neutrophils # Man Monocytes # (Manual) PT INR APTT D-Dimer Heparin Anti-Xa Level ABG pH 7.223 L ABG pO2 71.3 L ABG HCO3 ABG O2 Saturation 92.8 L ABG Base Excess ABG Hemoglobin 8.2 L Oxyhemoglobin 91.0 L Sodium Potassium Chloride Carbon Dioxide BUN Creatinine Glucose POC Glucose 184 H Hemoglobin A1c Lactic Acid Calcium Phosphorus Magnesium Ferritin AST ALT Alkaline Phosphatase Lactate Dehydrogenase Troponin T C-Reactive Protein Total Protein Albumin LDL Cholesterol Direct Urine Creatinine 184.6 H Urine Total Protein Salicylates Acetaminophen Crossmatch 11/04/21 11/04/21 11/05/21 18:02 Unknown 00:07 WBC RBC Hgb Hct MCH RDW Plt Count Lymph % (Auto) [place] % (Auto) Lymph # (Auto) [place] # (Auto) Seg Neutrophils % Seg Neuts % (Manual) Lymphocytes % (Manual) Nucleated RBC % Seg Neutrophils # Seg Neutrophils # Man Monocytes # (Manual) PT INR APTT D-Dimer Heparin Anti-Xa Level ABG pH ABG pO2 ABG HCO3 ABG O2 Saturation ABG Base Excess ABG Hemoglobin Oxyhemoglobin Sodium Potassium Chloride Carbon Dioxide BUN Creatinine Glucose POC Glucose 262 H 259 H Hemoglobin A1c Lactic Acid Calcium Phosphorus Magnesium Ferritin AST ALT Alkaline Phosphatase Lactate Dehydrogenase Troponin T C-Reactive Protein Total Protein Albumin LDL Cholesterol Direct Urine Creatinine 190.9 H Urine Total Protein 172 H Salicylates Acetaminophen Crossmatch 11/05/21 11/05/21 11/05/21 04:20 04:20 05:30 WBC 17.9 H RBC 3.64 L Hgb 9.7 L Hct MCH 27 L RDW 16.4 H Plt Count Lymph % (Auto) [place] % (Auto) Lymph # (Auto) [place] # (Auto) Seg Neutrophils % Seg Neuts % (Manual) Lymphocytes % (Manual) Nucleated RBC % Seg Neutrophils # Seg Neutrophils # Man Monocytes # (Manual) PT INR APTT D-Dimer Heparin Anti-Xa Level ABG pH ABG pO2 ABG HCO3 ABG O2 Saturation ABG Base Excess ABG Hemoglobin Oxyhemoglobin Sodium Potassium 5.6 H Chloride 108.4 H Carbon Dioxide BUN 71 H Creatinine 1.9 H Glucose 270 H POC Glucose 283 H Hemoglobin A1c Lactic Acid Calcium Phosphorus Magnesium Ferritin AST ALT Alkaline Phosphatase Lactate Dehydrogenase Troponin T C-Reactive Protein Total Protein Albumin LDL Cholesterol Direct Urine Creatinine Urine Total Protein Salicylates Acetaminophen Crossmatch 11/05/21 11/05/21 11/05/21 10:05 12:10 15:29 WBC RBC Hgb Hct MCH RDW Plt Count Lymph % (Auto) [place] % (Auto) Lymph # (Auto) [place] # (Auto) Seg Neutrophils % Seg Neuts % (Manual) Lymphocytes % (Manual) Nucleated RBC % Seg Neutrophils # Seg Neutrophils # Man Monocytes # (Manual) PT INR APTT D-Dimer Heparin Anti-Xa Level ABG pH 7.248 L ABG pO2 73.7 L ABG HCO3 26.2 H ABG O2 Saturation 93.1 L ABG Base Excess ABG Hemoglobin 8.9 L Oxyhemoglobin 91.4 L Sodium Potassium Chloride Carbon Dioxide BUN Creatinine Glucose POC Glucose 225 H 199 H Hemoglobin A1c Lactic Acid Calcium Phosphorus Magnesium Ferritin AST ALT Alkaline Phosphatase Lactate Dehydrogenase Troponin T C-Reactive Protein Total Protein Albumin LDL Cholesterol Direct Urine Creatinine Urine Total Protein Salicylates Acetaminophen Crossmatch 11/05/21 11/05/21 11/05/21 15:51 17:32 17:40 WBC RBC Hgb Hct MCH RDW Plt Count Lymph % (Auto) [place] % (Auto) Lymph # (Auto) [place] # (Auto) Seg Neutrophils % Seg Neuts % (Manual) Lymphocytes % (Manual) Nucleated RBC % Seg Neutrophils # Seg Neutrophils # Man Monocytes # (Manual) PT INR APTT D-Dimer Heparin Anti-Xa Level ABG pH ABG pO2 ABG HCO3 ABG O2 Saturation ABG Base Excess ABG Hemoglobin Oxyhemoglobin Sodium Potassium 5.2 H Chloride 107.8 H Carbon Dioxide BUN 79 H Creatinine 1.9 H Glucose 204 H POC Glucose 278 H 197 H Hemoglobin A1c Lactic Acid Calcium Phosphorus Magnesium Ferritin AST ALT Alkaline Phosphatase Lactate Dehydrogenase Troponin T C-Reactive Protein Total Protein Albumin LDL Cholesterol Direct Urine Creatinine Urine Total Protein Salicylates Acetaminophen Crossmatch 11/05/21 11/05/21 11/05/21 21:25 22:22 23:43 WBC RBC Hgb Hct MCH RDW Plt Count Lymph % (Auto) [place] % (Auto) Lymph # (Auto) [place] # (Auto) Seg Neutrophils % Seg Neuts % (Manual) Lymphocytes % (Manual) Nucleated RBC % Seg Neutrophils # Seg Neutrophils # Man Monocytes # (Manual) PT INR APTT D-Dimer Heparin Anti-Xa Level ABG pH ABG pO2 ABG HCO3 ABG O2 Saturation ABG Base Excess ABG Hemoglobin Oxyhemoglobin Sodium Potassium 5.3 H Chloride 109.2 H Carbon Dioxide BUN 81 H Creatinine 2.0 H Glucose 195 H POC Glucose 180 H 203 H Hemoglobin A1c Lactic Acid Calcium Phosphorus Magnesium Ferritin AST ALT Alkaline Phosphatase Lactate Dehydrogenase Troponin T C-Reactive Protein Total Protein Albumin LDL Cholesterol Direct Urine Creatinine Urine Total Protein Salicylates Acetaminophen Crossmatch 11/05/21 11/06/21 11/06/21 Unknown 02:35 05:09 WBC RBC Hgb Hct MCH RDW Plt Count Lymph % (Auto) [place] % (Auto) Lymph # (Auto) [place] # (Auto) Seg Neutrophils % Seg Neuts % (Manual) Lymphocytes % (Manual) Nucleated RBC % Seg Neutrophils # Seg Neutrophils # Man Monocytes # (Manual) PT INR APTT D-Dimer Heparin Anti-Xa Level ABG pH ABG pO2 ABG HCO3 ABG O2 Saturation ABG Base Excess ABG Hemoglobin Oxyhemoglobin Sodium 146 H Potassium 6.0 H Chloride 108.1 H 107.1 H Carbon Dioxide 21 L BUN 80 H 84 H Creatinine 2.0 H 2.0 H Glucose 238 H 235 H POC Glucose 215 H Hemoglobin A1c Lactic Acid Calcium Phosphorus Magnesium 2.80 H Ferritin AST ALT 77 H Alkaline Phosphatase Lactate Dehydrogenase Troponin T C-Reactive Protein Total Protein Albumin 3.0 L LDL Cholesterol Direct Urine Creatinine Urine Total Protein Salicylates Acetaminophen Crossmatch 11/06/21 11/06/21 11/06/21 05:40 08:07 08:07 WBC RBC Hgb Hct MCH RDW Plt Count Lymph % (Auto) [place] % (Auto) Lymph # (Auto) [place] # (Auto) Seg Neutrophils % Seg Neuts % (Manual) Lymphocytes % (Manual) Nucleated RBC % Seg Neutrophils # Seg Neutrophils # Man Monocytes # (Manual) PT INR APTT D-Dimer Heparin Anti-Xa Level 1.24 H ABG pH 7.311 L ABG pO2 72.8 L ABG HCO3 29.7 H ABG O2 Saturation 94.1 L ABG Base Excess ABG Hemoglobin 11.4 L Oxyhemoglobin 92.3 L Sodium Potassium 5.2 H Chloride Carbon Dioxide BUN 85 H Creatinine 2.3 H Glucose 236 H POC Glucose Hemoglobin A1c Lactic Acid Calcium Phosphorus Magnesium Ferritin AST ALT Alkaline Phosphatase Lactate Dehydrogenase Troponin T C-Reactive Protein Total Protein Albumin LDL Cholesterol Direct Urine Creatinine Urine Total Protein Salicylates Acetaminophen Crossmatch 11/06/21 11/06/21 11/06/21 12:14 12:57 14:28 WBC RBC Hgb Hct MCH RDW Plt Count Lymph % (Auto) [place] % (Auto) Lymph # (Auto) [place] # (Auto) Seg Neutrophils % Seg Neuts % (Manual) Lymphocytes % (Manual) Nucleated RBC % Seg Neutrophils # Seg Neutrophils # Man Monocytes # (Manual) PT INR APTT D-Dimer Heparin Anti-Xa Level ABG pH 7.282 L ABG pO2 72.6 L ABG HCO3 30.8 H ABG O2 Saturation 93.7 L ABG Base Excess 3.2 H ABG Hemoglobin 8.6 L Oxyhemoglobin 91.8 L Sodium Potassium Chloride Carbon Dioxide BUN 91 H Creatinine 2.6 H Glucose 259 H POC Glucose 225 H Hemoglobin A1c Lactic Acid Calcium Phosphorus Magnesium Ferritin AST ALT Alkaline Phosphatase Lactate Dehydrogenase Troponin T C-Reactive Protein Total Protein Albumin LDL Cholesterol Direct Urine Creatinine Urine Total Protein Salicylates Acetaminophen Crossmatch 11/06/21 11/06/21 11/06/21 17:28 19:20 21:30 WBC RBC Hgb Hct MCH RDW Plt Count Lymph % (Auto) [place] % (Auto) Lymph # (Auto) [place] # (Auto) Seg Neutrophils % Seg Neuts % (Manual) Lymphocytes % (Manual) Nucleated RBC % Seg Neutrophils # Seg Neutrophils # Man Monocytes # (Manual) PT INR APTT D-Dimer Heparin Anti-Xa Level 0.73 H ABG pH ABG pO2 ABG HCO3 ABG O2 Saturation ABG Base Excess ABG Hemoglobin Oxyhemoglobin Sodium Potassium Chloride Carbon Dioxide BUN 95 H Creatinine 2.9 H Glucose 233 H POC Glucose 206 H Hemoglobin A1c Lactic Acid Calcium Phosphorus Magnesium Ferritin AST ALT Alkaline Phosphatase Lactate Dehydrogenase Troponin T C-Reactive Protein Total Protein Albumin LDL Cholesterol Direct Urine Creatinine Urine Total Protein Salicylates Acetaminophen Crossmatch 11/06/21 11/07/21 11/07/21 22:56 05:06 06:30 WBC RBC Hgb Hct MCH RDW Plt Count Lymph % (Auto) [place] % (Auto) Lymph # (Auto) [place] # (Auto) Seg Neutrophils % Seg Neuts % (Manual) Lymphocytes % (Manual) Nucleated RBC % Seg Neutrophils # Seg Neutrophils # Man Monocytes # (Manual) PT INR APTT D-Dimer Heparin Anti-Xa Level ABG pH ABG pO2 ABG HCO3 ABG O2 Saturation ABG Base Excess ABG Hemoglobin Oxyhemoglobin Sodium 146 H Potassium Chloride Carbon Dioxide BUN 98 H Creatinine 2.8 H Glucose 202 H POC Glucose 215 H 172 H Hemoglobin A1c Lactic Acid Calcium Phosphorus 4.90 H D Magnesium 2.90 H Ferritin AST ALT Alkaline Phosphatase Lactate Dehydrogenase Troponin T C-Reactive Protein Total Protein Albumin LDL Cholesterol Direct Urine Creatinine Urine Total Protein Salicylates Acetaminophen Crossmatch 11/07/21 11/07/21 11/07/21 06:30 11:26 12:15 WBC 16.0 H RBC 3.06 L Hgb 8.2 L Hct 26.1 L MCH 27 L RDW 16.2 H Plt Count Lymph % (Auto) [place] % (Auto) Lymph # (Auto) [place] # (Auto) Seg Neutrophils % Seg Neuts % (Manual) 77.0 H Lymphocytes % (Manual) 11.0 L Nucleated RBC % 2.0 H Seg Neutrophils # Seg Neutrophils # Man 12.3 H Monocytes # (Manual) PT INR APTT D-Dimer Heparin Anti-Xa Level ABG pH 7.298 L ABG pO2 73.0 L ABG HCO3 33.3 H ABG O2 Saturation 94.4 L ABG Base Excess 5.8 H ABG Hemoglobin 8.2 L Oxyhemoglobin 92.7 L Sodium Potassium Chloride Carbon Dioxide BUN Creatinine Glucose POC Glucose 179 H Hemoglobin A1c Lactic Acid Calcium Phosphorus Magnesium Ferritin AST ALT Alkaline Phosphatase Lactate Dehydrogenase Troponin T C-Reactive Protein Total Protein Albumin LDL Cholesterol Direct Urine Creatinine Urine Total Protein Salicylates Acetaminophen Crossmatch 11/07/21 11/07/21 11/07/21 17:57 22:16 23:49 WBC RBC Hgb Hct MCH RDW Plt Count Lymph % (Auto) [place] % (Auto) Lymph # (Auto) [place] # (Auto) Seg Neutrophils % Seg Neuts % (Manual) Lymphocytes % (Manual) Nucleated RBC % Seg Neutrophils # Seg Neutrophils # Man Monocytes # (Manual) PT INR APTT D-Dimer Heparin Anti-Xa Level ABG pH ABG pO2 ABG HCO3 ABG O2 Saturation ABG Base Excess ABG Hemoglobin Oxyhemoglobin Sodium Potassium Chloride Carbon Dioxide BUN Creatinine Glucose POC Glucose 166 H 223 H 190 H Hemoglobin A1c Lactic Acid Calcium Phosphorus Magnesium Ferritin AST ALT Alkaline Phosphatase Lactate Dehydrogenase Troponin T C-Reactive Protein Total Protein Albumin LDL Cholesterol Direct Urine Creatinine Urine Total Protein Salicylates Acetaminophen Crossmatch 11/08/21 11/08/21 11/08/21 04:20 04:20 06:16 WBC 22.1 H RBC 3.01 L Hgb 8.1 L Hct 25.6 L MCH 27 L RDW 15.4 H Plt Count Lymph % (Auto) [place] % (Auto) Lymph # (Auto) [place] # (Auto) Seg Neutrophils % Seg Neuts % (Manual) Lymphocytes % (Manual) Nucleated RBC % Seg Neutrophils # Seg Neutrophils # Man Monocytes # (Manual) PT INR APTT D-Dimer Heparin Anti-Xa Level ABG pH ABG pO2 ABG HCO3 ABG O2 Saturation ABG Base Excess ABG Hemoglobin Oxyhemoglobin Sodium 151 H Potassium 3.1 L D Chloride 107.3 H Carbon Dioxide 31 H BUN 82 H Creatinine 1.8 H Glucose 232 H POC Glucose 198 H Hemoglobin A1c Lactic Acid Calcium 8.1 L Phosphorus Magnesium Ferritin AST ALT Alkaline Phosphatase Lactate Dehydrogenase Troponin T C-Reactive Protein Total Protein Albumin LDL Cholesterol Direct Urine Creatinine Urine Total Protein Salicylates Acetaminophen Crossmatch 11/08/21 11/08/21 11/08/21 11:38 12:00 18:29 WBC RBC Hgb Hct MCH RDW Plt Count Lymph % (Auto) [place] % (Auto) Lymph # (Auto) [place] # (Auto) Seg Neutrophils % Seg Neuts % (Manual) Lymphocytes % (Manual) Nucleated RBC % Seg Neutrophils # Seg Neutrophils # Man Monocytes # (Manual) PT INR APTT D-Dimer Heparin Anti-Xa Level ABG pH ABG pO2 ABG HCO3 ABG O2 Saturation ABG Base Excess ABG Hemoglobin Oxyhemoglobin Sodium Potassium 3.0 L Chloride Carbon Dioxide BUN Creatinine Glucose POC Glucose 190 H 211 H Hemoglobin A1c Lactic Acid Calcium Phosphorus Magnesium Ferritin AST ALT Alkaline Phosphatase Lactate Dehydrogenase Troponin T C-Reactive Protein Total Protein Albumin LDL Cholesterol Direct Urine Creatinine Urine Total Protein Salicylates Acetaminophen Crossmatch 11/08/21 11/08/21 11/09/21 21:34 21:40 00:36 WBC RBC Hgb Hct MCH RDW Plt Count Lymph % (Auto) [place] % (Auto) Lymph # (Auto) [place] # (Auto) Seg Neutrophils % Seg Neuts % (Manual) Lymphocytes % (Manual) Nucleated RBC % Seg Neutrophils # Seg Neutrophils # Man Monocytes # (Manual) PT INR APTT D-Dimer Heparin Anti-Xa Level ABG pH ABG pO2 ABG HCO3 ABG O2 Saturation ABG Base Excess ABG Hemoglobin Oxyhemoglobin Sodium 148 H Potassium 2.8 L* Chloride Carbon Dioxide 31 H BUN 68 H Creatinine 1.5 H Glucose 191 H POC Glucose 194 H 140 H Hemoglobin A1c Lactic Acid Calcium 8.2 L Phosphorus Magnesium Ferritin AST ALT Alkaline Phosphatase Lactate Dehydrogenase Troponin T C-Reactive Protein Total Protein Albumin LDL Cholesterol Direct Urine Creatinine Urine Total Protein Salicylates Acetaminophen Crossmatch 11/09/21 11/09/21 11/09/21 04:51 04:51 04:51 WBC 27.6 H RBC 3.18 L Hgb 8.4 L Hct 26.6 L MCH 27 L RDW 15.3 H Plt Count Lymph % (Auto) [place] % (Auto) Lymph # (Auto) [place] # (Auto) Seg Neutrophils % Seg Neuts % (Manual) Lymphocytes % (Manual) Nucleated RBC % Seg Neutrophils # Seg Neutrophils # Man Monocytes # (Manual) PT INR APTT D-Dimer Heparin Anti-Xa Level 0.18 L ABG pH ABG pO2 ABG HCO3 ABG O2 Saturation ABG Base Excess ABG Hemoglobin Oxyhemoglobin Sodium 148 H Potassium 2.7 L* Chloride Carbon Dioxide BUN 59 H Creatinine 1.4 H Glucose 143 H POC Glucose Hemoglobin A1c Lactic Acid Calcium 8.3 L Phosphorus Magnesium Ferritin AST ALT Alkaline Phosphatase Lactate Dehydrogenase Troponin T C-Reactive Protein Total Protein Albumin LDL Cholesterol Direct Urine Creatinine Urine Total Protein Salicylates Acetaminophen Crossmatch 11/09/21 11/09/21 11/09/21 05:52 08:45 11:00 WBC RBC Hgb Hct MCH RDW Plt Count Lymph % (Auto) [place] % (Auto) Lymph # (Auto) [place] # (Auto) Seg Neutrophils % Seg Neuts % (Manual) Lymphocytes % (Manual) Nucleated RBC % Seg Neutrophils # Seg Neutrophils # Man Monocytes # (Manual) PT INR APTT D-Dimer Heparin Anti-Xa Level ABG pH ABG pO2 73.2 L ABG HCO3 33.8 H ABG O2 Saturation ABG Base Excess 8.7 H ABG Hemoglobin 8.5 L Oxyhemoglobin 94.1 L Sodium Potassium Chloride Carbon Dioxide BUN Creatinine Glucose POC Glucose 166 H 136 H Hemoglobin A1c Lactic Acid Calcium Phosphorus Magnesium Ferritin AST ALT Alkaline Phosphatase Lactate Dehydrogenase Troponin T C-Reactive Protein Total Protein Albumin LDL Cholesterol Direct Urine Creatinine Urine Total Protein Salicylates Acetaminophen Crossmatch 11/09/21 11/09/21 11/09/21 15:48 16:10 20:31 WBC RBC Hgb Hct MCH RDW Plt Count Lymph % (Auto) [place] % (Auto) Lymph # (Auto) [place] # (Auto) Seg Neutrophils % Seg Neuts % (Manual) Lymphocytes % (Manual) Nucleated RBC % Seg Neutrophils # Seg Neutrophils # Man Monocytes # (Manual) PT INR APTT D-Dimer Heparin Anti-Xa Level ABG pH ABG pO2 ABG HCO3 ABG O2 Saturation ABG Base Excess ABG Hemoglobin Oxyhemoglobin Sodium Potassium 2.8 L* Chloride Carbon Dioxide 31 H BUN 53 H Creatinine 1.3 H Glucose 208 H POC Glucose 203 H 166 H Hemoglobin A1c Lactic Acid Calcium 7.9 L Phosphorus Magnesium Ferritin AST ALT Alkaline Phosphatase Lactate Dehydrogenase Troponin T C-Reactive Protein Total Protein Albumin LDL Cholesterol Direct Urine Creatinine Urine Total Protein Salicylates Acetaminophen Crossmatch 11/09/21 11/09/21 11/09/21 21:30 23:16 Unknown WBC RBC Hgb Hct MCH RDW Plt Count Lymph % (Auto) [place] % (Auto) Lymph # (Auto) [place] # (Auto) Seg Neutrophils % Seg Neuts % (Manual) Lymphocytes % (Manual) Nucleated RBC % Seg Neutrophils # Seg Neutrophils # Man Monocytes # (Manual) PT INR APTT D-Dimer Heparin Anti-Xa Level 0.24 L ABG pH ABG pO2 ABG HCO3 ABG O2 Saturation ABG Base Excess ABG Hemoglobin Oxyhemoglobin Sodium Potassium Chloride Carbon Dioxide BUN 52 H Creatinine 1.4 H Glucose 185 H POC Glucose 172 H Hemoglobin A1c Lactic Acid Calcium 7.8 L Phosphorus Magnesium Ferritin AST ALT Alkaline Phosphatase Lactate Dehydrogenase Troponin T C-Reactive Protein Total Protein Albumin LDL Cholesterol Direct Urine Creatinine Urine Total Protein Salicylates Acetaminophen Crossmatch 11/10/21 11/10/21 11/10/21 02:00 04:17 04:17 WBC 24.5 H RBC 2.75 L Hgb 7.5 L Hct 22.9 L MCH 27 L RDW Plt Count Lymph % (Auto) [place] % (Auto) Lymph # (Auto) [place] # (Auto) Seg Neutrophils % Seg Neuts % (Manual) Lymphocytes % (Manual) Nucleated RBC % Seg Neutrophils # Seg Neutrophils # Man Monocytes # (Manual) PT INR APTT D-Dimer Heparin Anti-Xa Level 0.26 L ABG pH ABG pO2 ABG HCO3 ABG O2 Saturation ABG Base Excess ABG Hemoglobin Oxyhemoglobin Sodium Potassium 2.9 L* Chloride Carbon Dioxide 35 H BUN 48 H Creatinine Glucose 212 H POC Glucose Hemoglobin A1c Lactic Acid Calcium 8.1 L Phosphorus Magnesium Ferritin AST ALT Alkaline Phosphatase Lactate Dehydrogenase Troponin T C-Reactive Protein Total Protein Albumin LDL Cholesterol Direct Urine Creatinine Urine Total Protein Salicylates Acetaminophen Crossmatch 11/10/21 11/10/21 11/10/21 05:01 08:39 11:03 WBC RBC Hgb Hct MCH RDW Plt Count Lymph % (Auto) [place] % (Auto) Lymph # (Auto) [place] # (Auto) Seg Neutrophils % Seg Neuts % (Manual) Lymphocytes % (Manual) Nucleated RBC % Seg Neutrophils # Seg Neutrophils # Man Monocytes # (Manual) PT INR APTT D-Dimer Heparin Anti-Xa Level 0.12 L ABG pH ABG pO2 ABG HCO3 ABG O2 Saturation ABG Base Excess ABG Hemoglobin Oxyhemoglobin Sodium Potassium Chloride Carbon Dioxide BUN Creatinine Glucose POC Glucose 203 H 152 H Hemoglobin A1c Lactic Acid Calcium Phosphorus Magnesium Ferritin AST ALT Alkaline Phosphatase Lactate Dehydrogenase Troponin T C-Reactive Protein Total Protein Albumin LDL Cholesterol Direct Urine Creatinine Urine Total Protein Salicylates Acetaminophen Crossmatch 11/10/21 11/10/21 11/10/21 12:45 15:43 21:05 WBC RBC Hgb Hct MCH RDW Plt Count Lymph % (Auto) [place] % (Auto) Lymph # (Auto) [place] # (Auto) Seg Neutrophils % Seg Neuts % (Manual) Lymphocytes % (Manual) Nucleated RBC % Seg Neutrophils # Seg Neutrophils # Man Monocytes # (Manual) PT INR APTT D-Dimer Heparin Anti-Xa Level ABG pH ABG pO2 ABG HCO3 ABG O2 Saturation ABG Base Excess ABG Hemoglobin Oxyhemoglobin Sodium 146 H Potassium 3.3 L Chloride Carbon Dioxide 31 H BUN 43 H Creatinine Glucose 155 H POC Glucose 139 H 139 H Hemoglobin A1c Lactic Acid Calcium 8.3 L Phosphorus Magnesium Ferritin AST ALT Alkaline Phosphatase Lactate Dehydrogenase Troponin T C-Reactive Protein Total Protein Albumin LDL Cholesterol Direct Urine Creatinine Urine Total Protein Salicylates Acetaminophen Crossmatch 11/10/21 11/11/21 11/11/21 23:25 03:49 03:49 WBC 22.1 H RBC 2.69 L Hgb 7.2 L Hct 22.7 L MCH 27 L RDW Plt Count Lymph % (Auto) [place] % (Auto) Lymph # (Auto) [place] # (Auto) Seg Neutrophils % Seg Neuts % (Manual) Lymphocytes % (Manual) Nucleated RBC % Seg Neutrophils # Seg Neutrophils # Man Monocytes # (Manual) PT INR APTT D-Dimer Heparin Anti-Xa Level ABG pH ABG pO2 ABG HCO3 ABG O2 Saturation ABG Base Excess ABG Hemoglobin Oxyhemoglobin Sodium Potassium Chloride Carbon Dioxide 32 H BUN 44 H Creatinine 1.3 H Glucose 173 H POC Glucose 146 H Hemoglobin A1c Lactic Acid Calcium Phosphorus Magnesium Ferritin AST ALT Alkaline Phosphatase Lactate Dehydrogenase Troponin T C-Reactive Protein Total Protein Albumin LDL Cholesterol Direct Urine Creatinine Urine Total Protein Salicylates Acetaminophen Crossmatch 11/11/21 11/11/21 11/11/21 05:03 10:50 11:32 WBC RBC Hgb Hct MCH RDW Plt Count Lymph % (Auto) [place] % (Auto) Lymph # (Auto) [place] # (Auto) Seg Neutrophils % Seg Neuts % (Manual) Lymphocytes % (Manual) Nucleated RBC % Seg Neutrophils # Seg Neutrophils # Man Monocytes # (Manual) PT INR APTT D-Dimer Heparin Anti-Xa Level ABG pH ABG pO2 ABG HCO3 ABG O2 Saturation ABG Base Excess ABG Hemoglobin Oxyhemoglobin Sodium Potassium Chloride Carbon Dioxide BUN Creatinine Glucose POC Glucose 152 H 129 H 133 H Hemoglobin A1c Lactic Acid Calcium Phosphorus Magnesium Ferritin AST ALT Alkaline Phosphatase Lactate Dehydrogenase Troponin T C-Reactive Protein Total Protein Albumin LDL Cholesterol Direct Urine Creatinine Urine Total Protein Salicylates Acetaminophen Crossmatch 11/11/21 11/11/21 11/11/21 13:53 16:31 17:13 WBC RBC Hgb Hct MCH RDW Plt Count Lymph % (Auto) [place] % (Auto) Lymph # (Auto) [place] # (Auto) Seg Neutrophils % Seg Neuts % (Manual) Lymphocytes % (Manual) Nucleated RBC % Seg Neutrophils # Seg Neutrophils # Man Monocytes # (Manual) PT INR APTT D-Dimer Heparin Anti-Xa Level ABG pH 7.475 H ABG pO2 64.1 L ABG HCO3 32.4 H ABG O2 Saturation ABG Base Excess 8.0 H ABG Hemoglobin 7.6 L Oxyhemoglobin 94.0 L Sodium Potassium Chloride Carbon Dioxide BUN Creatinine Glucose POC Glucose 116 H 125 H Hemoglobin A1c Lactic Acid Calcium Phosphorus Magnesium Ferritin AST ALT Alkaline Phosphatase Lactate Dehydrogenase Troponin T C-Reactive Protein Total Protein Albumin LDL Cholesterol Direct Urine Creatinine Urine Total Protein Salicylates Acetaminophen Crossmatch 11/11/21 11/11/21 11/12/21 20:40 23:35 03:30 WBC 17.7 H RBC 2.37 L Hgb 6.3 L Hct 20.0 L MCH 27 L RDW 15.5 H Plt Count Lymph % (Auto) [place] % (Auto) Lymph # (Auto) [place] # (Auto) Seg Neutrophils % Seg Neuts % (Manual) Lymphocytes % (Manual) Nucleated RBC % Seg Neutrophils # Seg Neutrophils # Man Monocytes # (Manual) PT INR APTT D-Dimer Heparin Anti-Xa Level 0.26 L ABG pH ABG pO2 ABG HCO3 ABG O2 Saturation ABG Base Excess ABG Hemoglobin Oxyhemoglobin Sodium Potassium Chloride Carbon Dioxide BUN Creatinine Glucose POC Glucose 118 H Hemoglobin A1c Lactic Acid Calcium Phosphorus Magnesium Ferritin AST ALT Alkaline Phosphatase Lactate Dehydrogenase Troponin T C-Reactive Protein Total Protein Albumin LDL Cholesterol Direct Urine Creatinine Urine Total Protein Salicylates Acetaminophen Crossmatch 11/12/21 11/12/21 11/12/21 03:30 04:15 11:53 WBC RBC Hgb Hct MCH RDW Plt Count Lymph % (Auto) [place] % (Auto) Lymph # (Auto) [place] # (Auto) Seg Neutrophils % Seg Neuts % (Manual) Lymphocytes % (Manual) Nucleated RBC % Seg Neutrophils # Seg Neutrophils # Man Monocytes # (Manual) PT INR APTT D-Dimer Heparin Anti-Xa Level ABG pH ABG pO2 ABG HCO3 ABG O2 Saturation ABG Base Excess ABG Hemoglobin Oxyhemoglobin Sodium Potassium Chloride Carbon Dioxide 33 H BUN 38 H Creatinine 1.3 H Glucose 102 H POC Glucose 62 L Hemoglobin A1c Lactic Acid Calcium 8.2 L Phosphorus Magnesium Ferritin AST ALT Alkaline Phosphatase Lactate Dehydrogenase Troponin T C-Reactive Protein Total Protein Albumin LDL Cholesterol Direct Urine Creatinine Urine Total Protein Salicylates Acetaminophen Crossmatch See Detail 11/12/21 11/12/21 11/12/21 17:20 19:14 23:11 WBC RBC Hgb 6.2 L Hct 19.5 L* MCH RDW Plt Count Lymph % (Auto) [place] % (Auto) Lymph # (Auto) [place] # (Auto) Seg Neutrophils % Seg Neuts % (Manual) Lymphocytes % (Manual) Nucleated RBC % Seg Neutrophils # Seg Neutrophils # Man Monocytes # (Manual) PT INR APTT D-Dimer Heparin Anti-Xa Level ABG pH ABG pO2 ABG HCO3 ABG O2 Saturation ABG Base Excess ABG Hemoglobin Oxyhemoglobin Sodium Potassium Chloride Carbon Dioxide BUN Creatinine Glucose POC Glucose 115 H 131 H Hemoglobin A1c Lactic Acid Calcium Phosphorus Magnesium Ferritin AST ALT Alkaline Phosphatase Lactate Dehydrogenase Troponin T C-Reactive Protein Total Protein Albumin LDL Cholesterol Direct Urine Creatinine Urine Total Protein Salicylates Acetaminophen Crossmatch 11/13/21 11/13/21 11/13/21 00:13 04:17 04:17 WBC 23.8 H RBC 2.84 L Hgb 7.4 L 7.8 L Hct 23.3 L 24.9 L MCH 27 L RDW 15.4 H Plt Count Lymph % (Auto) [place] % (Auto) Lymph # (Auto) [place] # (Auto) Seg Neutrophils % Seg Neuts % (Manual) Lymphocytes % (Manual) Nucleated RBC % Seg Neutrophils # Seg Neutrophils # Man Monocytes # (Manual) PT INR APTT D-Dimer Heparin Anti-Xa Level ABG pH ABG pO2 ABG HCO3 ABG O2 Saturation ABG Base Excess ABG Hemoglobin Oxyhemoglobin Sodium 146 H Potassium Chloride Carbon Dioxide BUN 44 H Creatinine 1.6 H Glucose 144 H POC Glucose Hemoglobin A1c Lactic Acid Calcium 7.9 L Phosphorus 5.10 H D Magnesium Ferritin AST ALT Alkaline Phosphatase Lactate Dehydrogenase Troponin T C-Reactive Protein Total Protein Albumin LDL Cholesterol Direct Urine Creatinine Urine Total Protein Salicylates Acetaminophen Crossmatch 11/13/21 11/13/21 11/13/21 05:52 10:54 15:57 WBC RBC Hgb Hct MCH RDW Plt Count Lymph % (Auto) [place] % (Auto) Lymph # (Auto) [place] # (Auto) Seg Neutrophils % Seg Neuts % (Manual) Lymphocytes % (Manual) Nucleated RBC % Seg Neutrophils # Seg Neutrophils # Man Monocytes # (Manual) PT INR APTT D-Dimer Heparin Anti-Xa Level ABG pH ABG pO2 ABG HCO3 ABG O2 Saturation ABG Base Excess ABG Hemoglobin Oxyhemoglobin Sodium Potassium Chloride Carbon Dioxide BUN Creatinine Glucose POC Glucose 123 H 147 H 207 H Hemoglobin A1c Lactic Acid Calcium Phosphorus Magnesium Ferritin AST ALT Alkaline Phosphatase Lactate Dehydrogenase Troponin T C-Reactive Protein Total Protein Albumin LDL Cholesterol Direct Urine Creatinine Urine Total Protein Salicylates Acetaminophen Crossmatch 11/13/21 11/13/21 11/14/21 16:01 23:18 04:55 WBC 23.9 H RBC 2.86 L Hgb 6.5 L 8.3 L Hct 20.3 L 24.5 L MCH RDW Plt Count Lymph % (Auto) [place] % (Auto) Lymph # (Auto) [place] # (Auto) Seg Neutrophils % Seg Neuts % (Manual) Lymphocytes % (Manual) Nucleated RBC % Seg Neutrophils # Seg Neutrophils # Man Monocytes # (Manual) PT INR APTT D-Dimer Heparin Anti-Xa Level ABG pH ABG pO2 ABG HCO3 ABG O2 Saturation ABG Base Excess ABG Hemoglobin Oxyhemoglobin Sodium Potassium Chloride Carbon Dioxide BUN Creatinine Glucose POC Glucose 209 H Hemoglobin A1c Lactic Acid Calcium Phosphorus Magnesium Ferritin AST ALT Alkaline Phosphatase Lactate Dehydrogenase Troponin T C-Reactive Protein Total Protein Albumin LDL Cholesterol Direct Urine Creatinine Urine Total Protein Salicylates Acetaminophen Crossmatch 11/14/21 11/14/21 11/14/21 04:55 05:09 11:35 WBC RBC Hgb Hct MCH RDW Plt Count Lymph % (Auto) [place] % (Auto) Lymph # (Auto) [place] # (Auto) Seg Neutrophils % Seg Neuts % (Manual) Lymphocytes % (Manual) Nucleated RBC % Seg Neutrophils # Seg Neutrophils # Man Monocytes # (Manual) PT INR APTT D-Dimer Heparin Anti-Xa Level ABG pH ABG pO2 ABG HCO3 ABG O2 Saturation ABG Base Excess ABG Hemoglobin Oxyhemoglobin Sodium 148 H Potassium Chloride 109.0 H Carbon Dioxide BUN 42 H Creatinine 1.6 H Glucose 184 H POC Glucose 169 H 154 H Hemoglobin A1c Lactic Acid Calcium 8.0 L Phosphorus Magnesium Ferritin AST ALT Alkaline Phosphatase Lactate Dehydrogenase Troponin T C-Reactive Protein Total Protein Albumin LDL Cholesterol Direct Urine Creatinine Urine Total Protein Salicylates Acetaminophen Crossmatch 11/14/21 11/14/21 11/15/21 16:57 23:11 04:36 WBC RBC Hgb Hct MCH RDW Plt Count Lymph % (Auto) [place] % (Auto) Lymph # (Auto) [place] # (Auto) Seg Neutrophils % Seg Neuts % (Manual) Lymphocytes % (Manual) Nucleated RBC % Seg Neutrophils # Seg Neutrophils # Man Monocytes # (Manual) PT INR APTT D-Dimer Heparin Anti-Xa Level ABG pH ABG pO2 ABG HCO3 ABG O2 Saturation ABG Base Excess ABG Hemoglobin Oxyhemoglobin Sodium 151 H Potassium Chloride 111.2 H Carbon Dioxide BUN 36 H Creatinine 1.3 H Glucose 136 H POC Glucose 124 H 118 H Hemoglobin A1c Lactic Acid Calcium 8.1 L Phosphorus Magnesium Ferritin AST ALT Alkaline Phosphatase Lactate Dehydrogenase Troponin T C-Reactive Protein Total Protein Albumin LDL Cholesterol Direct Urine Creatinine Urine Total Protein Salicylates Acetaminophen Crossmatch 11/15/21 11/15/21 11/16/21 11:18 21:49 00:15 WBC RBC Hgb Hct MCH RDW Plt Count Lymph % (Auto) [place] % (Auto) Lymph # (Auto) [place] # (Auto) Seg Neutrophils % Seg Neuts % (Manual) Lymphocytes % (Manual) Nucleated RBC % Seg Neutrophils # Seg Neutrophils # Man Monocytes # (Manual) PT INR APTT D-Dimer Heparin Anti-Xa Level ABG pH ABG pO2 ABG HCO3 ABG O2 Saturation ABG Base Excess ABG Hemoglobin Oxyhemoglobin Sodium Potassium Chloride Carbon Dioxide BUN Creatinine Glucose POC Glucose 154 H 154 H 146 H Hemoglobin A1c Lactic Acid Calcium Phosphorus Magnesium Ferritin AST ALT Alkaline Phosphatase Lactate Dehydrogenase Troponin T C-Reactive Protein Total Protein Albumin LDL Cholesterol Direct Urine Creatinine Urine Total Protein Salicylates Acetaminophen Crossmatch 11/16/21 11/16/21 11/16/21 05:11 05:11 05:37 WBC 18.2 H RBC 2.92 L Hgb 8.3 L Hct 26.1 L MCH RDW 15.8 H Plt Count Lymph % (Auto) 6.3 L [place] % (Auto) 10.2 H Lymph # (Auto) [place] # (Auto) 1.9 H Seg Neutrophils % 81.7 H Seg Neuts % (Manual) Lymphocytes % (Manual) Nucleated RBC % Seg Neutrophils # 14.9 H Seg Neutrophils # Man Monocytes # (Manual) PT INR APTT D-Dimer Heparin Anti-Xa Level ABG pH ABG pO2 ABG HCO3 ABG O2 Saturation ABG Base Excess ABG Hemoglobin Oxyhemoglobin Sodium 146 H Potassium Chloride 108.0 H Carbon Dioxide BUN 25 H Creatinine Glucose 123 H POC Glucose 109 H Hemoglobin A1c Lactic Acid Calcium 7.8 L Phosphorus Magnesium Ferritin AST ALT Alkaline Phosphatase Lactate Dehydrogenase Troponin T C-Reactive Protein Total Protein Albumin LDL Cholesterol Direct Urine Creatinine Urine Total Protein Salicylates Acetaminophen Crossmatch 11/16/21 11/16/21 11/17/21 11:22 23:55 04:33 WBC RBC Hgb Hct MCH RDW Plt Count Lymph % (Auto) [place] % (Auto) Lymph # (Auto) [place] # (Auto) Seg Neutrophils % Seg Neuts % (Manual) Lymphocytes % (Manual) Nucleated RBC % Seg Neutrophils # Seg Neutrophils # Man Monocytes # (Manual) PT INR APTT D-Dimer Heparin Anti-Xa Level ABG pH ABG pO2 ABG HCO3 ABG O2 Saturation ABG Base Excess ABG Hemoglobin Oxyhemoglobin Sodium Potassium Chloride Carbon Dioxide BUN 20 H Creatinine Glucose POC Glucose 136 H 113 H Hemoglobin A1c Lactic Acid Calcium 7.5 L Phosphorus Magnesium Ferritin AST ALT Alkaline Phosphatase Lactate Dehydrogenase Troponin T C-Reactive Protein Total Protein Albumin LDL Cholesterol Direct Urine Creatinine Urine Total Protein Salicylates Acetaminophen Crossmatch 11/17/21 11/18/21 11/18/21 23:22 04:53 04:53 WBC 13.0 H RBC 2.99 L Hgb 8.5 L Hct 26.4 L MCH RDW Plt Count Lymph % (Auto) 9.5 L [place] % (Auto) 9.8 H Lymph # (Auto) [place] # (Auto) 1.3 H Seg Neutrophils % 78.3 H Seg Neuts % (Manual) Lymphocytes % (Manual) Nucleated RBC % Seg Neutrophils # 10.2 H Seg Neutrophils # Man Monocytes # (Manual) PT INR APTT D-Dimer Heparin Anti-Xa Level ABG pH ABG pO2 ABG HCO3 ABG O2 Saturation ABG Base Excess ABG Hemoglobin Oxyhemoglobin Sodium Potassium Chloride Carbon Dioxide BUN 18 H Creatinine Glucose 106 H POC Glucose 112 H Hemoglobin A1c Lactic Acid Calcium 8.1 L Phosphorus Magnesium Ferritin AST ALT Alkaline Phosphatase Lactate Dehydrogenase Troponin T C-Reactive Protein Total Protein Albumin LDL Cholesterol Direct Urine Creatinine Urine Total Protein Salicylates Acetaminophen Crossmatch 11/18/21 11/18/21 11/19/21 11:35 17:42 14:38 WBC RBC Hgb Hct MCH RDW Plt Count Lymph % (Auto) [place] % (Auto) Lymph # (Auto) [place] # (Auto) Seg Neutrophils % Seg Neuts % (Manual) Lymphocytes % (Manual) Nucleated RBC % Seg Neutrophils # Seg Neutrophils # Man Monocytes # (Manual) PT INR APTT D-Dimer Heparin Anti-Xa Level ABG pH ABG pO2 ABG HCO3 ABG O2 Saturation ABG Base Excess ABG Hemoglobin Oxyhemoglobin Sodium Potassium Chloride 97.5 L Carbon Dioxide 31 H BUN Creatinine Glucose 146 H POC Glucose 143 H 132 H Hemoglobin A1c Lactic Acid Calcium Phosphorus Magnesium 1.60 L Ferritin AST ALT Alkaline Phosphatase Lactate Dehydrogenase Troponin T C-Reactive Protein Total Protein Albumin LDL Cholesterol Direct Urine Creatinine Urine Total Protein Salicylates Acetaminophen Crossmatch 11/19/21 11/19/21 11/20/21 16:24 23:58 07:42 WBC RBC 3.01 L Hgb 8.6 L Hct 26.7 L MCH RDW 15.4 H Plt Count Lymph % (Auto) [place] % (Auto) Lymph # (Auto) [place] # (Auto) Seg Neutrophils % Seg Neuts % (Manual) Lymphocytes % (Manual) Nucleated RBC % Seg Neutrophils # Seg Neutrophils # Man Monocytes # (Manual) PT INR APTT D-Dimer Heparin Anti-Xa Level ABG pH ABG pO2 ABG HCO3 ABG O2 Saturation ABG Base Excess ABG Hemoglobin Oxyhemoglobin Sodium Potassium Chloride Carbon Dioxide BUN Creatinine Glucose POC Glucose 129 H 125 H Hemoglobin A1c Lactic Acid Calcium Phosphorus Magnesium Ferritin AST ALT Alkaline Phosphatase Lactate Dehydrogenase Troponin T C-Reactive Protein Total Protein Albumin LDL Cholesterol Direct Urine Creatinine Urine Total Protein Salicylates Acetaminophen Crossmatch 11/20/21 11/20/21 11/20/21 07:42 11:25 22:59 WBC RBC Hgb Hct MCH RDW Plt Count Lymph % (Auto) [place] % (Auto) Lymph # (Auto) [place] # (Auto) Seg Neutrophils % Seg Neuts % (Manual) Lymphocytes % (Manual) Nucleated RBC % Seg Neutrophils # Seg Neutrophils # Man Monocytes # (Manual) PT INR APTT D-Dimer Heparin Anti-Xa Level ABG pH ABG pO2 ABG HCO3 ABG O2 Saturation ABG Base Excess ABG Hemoglobin Oxyhemoglobin Sodium Potassium Chloride Carbon Dioxide 31 H BUN Creatinine Glucose POC Glucose 116 H 113 H Hemoglobin A1c Lactic Acid Calcium Phosphorus Magnesium Ferritin AST ALT Alkaline Phosphatase Lactate Dehydrogenase Troponin T C-Reactive Protein Total Protein Albumin LDL Cholesterol Direct Urine Creatinine Urine Total Protein Salicylates Acetaminophen Crossmatch 11/21/21 11/22/21 11/22/21 10:50 05:10 16:12 WBC RBC Hgb Hct MCH RDW Plt Count Lymph % (Auto) [place] % (Auto) Lymph # (Auto) [place] # (Auto) Seg Neutrophils % Seg Neuts % (Manual) Lymphocytes % (Manual) Nucleated RBC % Seg Neutrophils # Seg Neutrophils # Man Monocytes # (Manual) PT INR APTT D-Dimer Heparin Anti-Xa Level ABG pH ABG pO2 ABG HCO3 ABG O2 Saturation ABG Base Excess ABG Hemoglobin Oxyhemoglobin Sodium Potassium Chloride Carbon Dioxide 32 H BUN Creatinine Glucose POC Glucose 156 H 110 H Hemoglobin A1c Lactic Acid Calcium 8.1 L Phosphorus Magnesium Ferritin AST ALT Alkaline Phosphatase Lactate Dehydrogenase Troponin T C-Reactive Protein Total Protein Albumin LDL Cholesterol Direct Urine Creatinine Urine Total Protein Salicylates Acetaminophen Crossmatch 11/23/21 11/23/21 11/23/21 07:18 07:18 11:45 WBC RBC 3.23 L Hgb 9.1 L Hct 28.5 L MCH RDW 15.6 H Plt Count Lymph % (Auto) [place] % (Auto) Lymph # (Auto) [place] # (Auto) Seg Neutrophils % Seg Neuts % (Manual) Lymphocytes % (Manual) Nucleated RBC % Seg Neutrophils # Seg Neutrophils # Man Monocytes # (Manual) PT INR APTT D-Dimer Heparin Anti-Xa Level ABG pH ABG pO2 ABG HCO3 ABG O2 Saturation ABG Base Excess ABG Hemoglobin Oxyhemoglobin Sodium Potassium 3.3 L Chloride 96.8 L Carbon Dioxide 32 H BUN Creatinine Glucose POC Glucose 140 H Hemoglobin A1c Lactic Acid Calcium Phosphorus Magnesium Ferritin AST ALT Alkaline Phosphatase Lactate Dehydrogenase Troponin T C-Reactive Protein Total Protein Albumin LDL Cholesterol Direct Urine Creatinine Urine Total Protein Salicylates Acetaminophen Crossmatch 11/23/21 11/23/21 11/24/21 16:40 23:45 07:19 WBC RBC 3.12 L Hgb 9.3 L Hct 27.2 L MCH RDW 16.0 H Plt Count Lymph % (Auto) 10.3 L [place] % (Auto) 10.0 H Lymph # (Auto) 1.1 L [place] # (Auto) 1.1 H Seg Neutrophils % 75.2 H Seg Neuts % (Manual) Lymphocytes % (Manual) Nucleated RBC % Seg Neutrophils # 7.9 H Seg Neutrophils # Man Monocytes # (Manual) PT INR APTT D-Dimer Heparin Anti-Xa Level ABG pH ABG pO2 ABG HCO3 ABG O2 Saturation ABG Base Excess ABG Hemoglobin Oxyhemoglobin Sodium Potassium Chloride Carbon Dioxide BUN Creatinine Glucose POC Glucose 140 H 138 H Hemoglobin A1c Lactic Acid Calcium Phosphorus Magnesium Ferritin AST ALT Alkaline Phosphatase Lactate Dehydrogenase Troponin T C-Reactive Protein Total Protein Albumin LDL Cholesterol Direct Urine Creatinine Urine Total Protein Salicylates Acetaminophen Crossmatch 11/24/21 11/24/21 11/24/21 07:19 11:49 15:54 WBC RBC Hgb Hct MCH RDW Plt Count Lymph % (Auto) [place] % (Auto) Lymph # (Auto) [place] # (Auto) Seg Neutrophils % Seg Neuts % (Manual) Lymphocytes % (Manual) Nucleated RBC % Seg Neutrophils # Seg Neutrophils # Man Monocytes # (Manual) PT INR APTT D-Dimer Heparin Anti-Xa Level ABG pH ABG pO2 ABG HCO3 ABG O2 Saturation ABG Base Excess ABG Hemoglobin Oxyhemoglobin Sodium Potassium 3.2 L Chloride 96.7 L Carbon Dioxide BUN Creatinine Glucose 125 H POC Glucose 118 H 106 H Hemoglobin A1c Lactic Acid Calcium Phosphorus Magnesium Ferritin AST ALT Alkaline Phosphatase Lactate Dehydrogenase Troponin T C-Reactive Protein Total Protein Albumin LDL Cholesterol Direct Urine Creatinine Urine Total Protein Salicylates Acetaminophen Crossmatch 11/25/21 11/25/21 11/25/21 11:49 15:41 20:51 WBC RBC Hgb Hct MCH RDW Plt Count Lymph % (Auto) [place] % (Auto) Lymph # (Auto) [place] # (Auto) Seg Neutrophils % Seg Neuts % (Manual) Lymphocytes % (Manual) Nucleated RBC % Seg Neutrophils # Seg Neutrophils # Man Monocytes # (Manual) PT INR APTT D-Dimer Heparin Anti-Xa Level ABG pH ABG pO2 ABG HCO3 ABG O2 Saturation ABG Base Excess ABG Hemoglobin Oxyhemoglobin Sodium Potassium Chloride Carbon Dioxide BUN Creatinine Glucose POC Glucose 119 H 110 H 109 H Hemoglobin A1c Lactic Acid Calcium Phosphorus Magnesium Ferritin AST ALT Alkaline Phosphatase Lactate Dehydrogenase Troponin T C-Reactive Protein Total Protein Albumin LDL Cholesterol Direct Urine Creatinine Urine Total Protein Salicylates Acetaminophen Crossmatch 11/26/21 11/26/21 11/26/21 07:33 11:20 17:03 WBC RBC Hgb Hct MCH RDW Plt Count Lymph % (Auto) [place] % (Auto) Lymph # (Auto) [place] # (Auto) Seg Neutrophils % Seg Neuts % (Manual) Lymphocytes % (Manual) Nucleated RBC % Seg Neutrophils # Seg Neutrophils # Man Monocytes # (Manual) PT INR APTT D-Dimer Heparin Anti-Xa Level ABG pH ABG pO2 ABG HCO3 ABG O2 Saturation ABG Base Excess ABG Hemoglobin Oxyhemoglobin Sodium Potassium Chloride Carbon Dioxide BUN Creatinine Glucose POC Glucose 158 H 162 H 144 H Hemoglobin A1c Lactic Acid Calcium Phosphorus Magnesium Ferritin AST ALT Alkaline Phosphatase Lactate Dehydrogenase Troponin T C-Reactive Protein Total Protein Albumin LDL Cholesterol Direct Urine Creatinine Urine Total Protein Salicylates Acetaminophen Crossmatch Allied health notes reviewed: nursing
[2021-11-26] MEDS: ALPRAZolam 0.25 MG TAB PO PRN (20:34)
[2021-11-26] MEDS: MELATONIN 5 MG TAB PO PRN (21:52)
[2021-11-27] MEDS ORDERED: MORPHINE 2 MG/1 ML INJ IV ONE (01:24)
[2021-11-27] MEDS: ACETAMINOPHEN 325 MG TAB PO PRN ×2 (04:43→11:23)
[2021-11-27] MEDS: hydrALAZINE 25 MG TAB PO SCH ×3 (05:38→23:55)
--- NOTE | 2021-11-27 08:45 | XRay Report ---
CHEST 1 VIEW 11/27/2021 8:08 AM INDICATION / CLINICAL INFORMATION: Follow up on pulmonary edema.. COMPARISON: 11/18/2021 FINDINGS: SUPPORT DEVICES: None. HEART / MEDIASTINUM: No significant abnormality. LUNGS / PLEURA: No significant pulmonary or pleural abnormality. No pneumothorax. ADDITIONAL FINDINGS: No significant additional findings. IMPRESSION: 1. No acute findings. Signer Name: Miki Sosa MD Signed: 11/27/2021 8:40 AM Workstation Name: [id number]
[2021-11-27] MEDS: INSULIN LISPRO 100 UNIT/ML SUB-Q SCH ×4 (09:43→21:37)
[2021-11-27] MEDS: SENNOSIDES/DOCUSATE SODIUM 8.6/50 MG TAB PO SCH ×2 (09:45→21:31)
[2021-11-27] MEDS: METOPROLOL TARTRATE 100 MG TAB PO SCH ×2 (09:45→21:32)
[2021-11-27] MEDS: DOCUSATE SODIUM 100 MG CAP PO SCH ×2 (09:46→21:32)
[2021-11-27] MEDS: SPIRONOLACTONE 25 MG TAB PO SCH (09:46)
[2021-11-27] MEDS: FAMOTIDINE 10 MG TAB PO SCH ×2 (09:46→21:31)
[2021-11-27] MEDS: FUROSEMIDE 20 MG/2 ML INJ IV SCH ×2 (09:46→21:32)
--- NOTE | 2021-11-27 10:03 | Progress Note ---
Assessment and Plan Assessment and plan: 66 YO Female with Obesity was attending [facility] services when the patient collapsed and lost consciousness. Witnesses began CPR. EMS was notified and upon arrival the patient was found to be in distress without perfusing cardiac rhythm. Patient initiated on ACLS protocol and subsequently intubated in the field and transported to ED. The patient regained spontaneous circulation during transport. She was found to have acute hypoxemic respiratory failure, septic shock suspected secondary to aspiration pneumonia, metabolic acidosis, toxic metabolic encephalopathy, shock liver, and cardiac arrest with return of perfusing cardiac rhythm after initiation of ACLS protocol. Patient initiated on sepsis protocol as well as pneumonia protocol. Patient admitted to ICU. Patient improved, extubated on 11/11 and transferred to floor on 11/19. s/p cardiac arrest, collapse at [facility], HFrEF, shock/hypotension resolved Atrial fibrillation/atrial flutter -Cardiac arrest and collapse at [facility] with ROSC -Cardiology consulted, appreciate recommendations - S/p Cardizem gtt- d/c due to low EF; now on PO Amio -s/p vasopressor support with levophed -Echocardiogram shows left ventricular systolic function severely decreased, LVEF 25 to 30%, no pericardial effusion -proBNP 5622 -Continue Lasix 20 mg twice daily, BB, spironolactone, losartan -No significant volume overload clinically Acute hypoxic respiratory failure, right pneumothorax, Angioedema (resolved), pulmonary edema -[facility] consulted, appreciate recommendations -Intubated on 10/29 and extubated on 11/11 -Bipap q HS and prn, at high risk for KOLBY with morbid obesity -NC during day -s/p right chest tube for pneumothorax -s/p steroids for angioedema -On Lasix for pulmonary edema. Transaminitis likely shocked liver - resolved Acute kidney injury likely secondary to vasomotor nephropathy, hypernatremia -Nephrology consulted, appreciate recommendations -Krishna replaced 11/05 urinary retention -FeNa 0.05 indicating pre-renal -ISERRA and hyponatremia resolved. Creatinine 1.0 on Lasix IV Shock cardiogenicsuspected sepsis -Fever was as high as 102 with a leukocytosis Blood, urine and sputum cultures negative -COVID-19 PCR negative -S/p empiric antibiotic therapy for possible pneumonia with Rocephin and azithromycin () -S/p Levophed gtt for hypotension -Fever and leukocytosis resolved -Monitor WBC and temperature curve Acute Metabolic encephalopathy, agitation/anxiety -Etiology likely from a cardiac arrest, shock and cerebral hypoperfusion CT head no acute focal parenchymal lesion in the brain -Neurology consulted, appreciate recommendations -EEG and MRI noted, Neuro recommend to cut down on sedation as possible Mental status significantly improved, currently fairly alert and oriented. Answers appropriately. Acute DVT in the left posterior tibial vein and bilateral peroneal veins, Anemia, retroperitoneal bleed -D-dimer greater than 10,000 -CTA chest with no evidence of PE -Bilateral lower extremity ultrasound positive for DVT -Heparin gtt on hold d/t anemia, received PRBC x4 -vasuclar surgery consulted, appreciate recommendations -recommended multiphasic CT angio of the abdomen and pelvis with and without contrast if H/H drops and did not recommend IVC filter at this time as the DVTs are infrapopliteal and recommends a follow-up DVT study weekly for 2 weeks. Repeat venous duplex ultrasound on 11/21 showed progression of left peroneal DVT extending into popliteal vein. Vascular surgery completed IVC filter placement on 11/22. -Trend CBC -SCDs to BLE while in bed -Transfuse hemoglobin less than 7 -Monitor for signs of bleeding -Hemoglobin stable, 8.6 Hypertension, not able be controlled Increase losartan 200 mg daily and add hydralazine as needed. Hyperglycemia ,resolved) -Avoid hypoglycemia -Hbg A1C 6.7 -SSI and lantus q hs (titrate as needed) -Accu-Cheks q. 6 Morbid obesity High risk for KOLBY On nightly BiPAP Deconditioning PT/OT Hospital Course to Date: 10/30: Intubated and sedated, on fentanyl gtt. Open eyes spontaneously but does not follow any commands. On vasopressors, titrate as tolerated for MAP above 65. Patient febrile overnight, continue empiric IV Abx, culture data and COVID PCR pending. Patient is also s/p CT placement due to spontaneous pneumothorax. 2D echo is pending and Cardiology is consulted. 10/31: Patient remains intubated and following commands. Levophed drip stopped and potassium repleted. Patient started on tube feeding. Remains in soft bilateral restraints. 11/01: RN noted ST changes on BSM and 12 lead EKG obtained which showed ST. Given Ativan 1mg for agitation as she is maxed on fentanyl drip and IV push fentanyl did not seem to help. Patient was started on CPAP this morning by RT but remained on fentanyl drip and was having periods of apnea. Plan was to retry CPAP again in the p.m. with sedation off. 11/02: Rate increased r/t hypercapnea on ABG, sedation reduced. Given kionex for hyperkalemia and was started on levophed overnight for hypotension. 11/03: Overnight patient had tachycardia and was given Cardizem and Lopressor. Lopressor was repeated in the a.m. due to tachycardia. Patient will be started on amiodarone with a bolus per cardiology. Patient started on normal saline per liter per [facility] and steroids for angioedema. Noted to have bright red blood when suctioned from oh ETT. Remains on heparin drip as H/H is stable for now. Will reevaluate. Fentanyl drip was restarted last night due to agitation. Dr. Flores updated family today 11/04: Patient was sedated on fentanyl however off sedation is able to follow commands, a.m. labs completed in the p.m. and show hyperkalemia with increased renal function studies. Nephrology, neurology consulted by [facility]. Given Kayexalate, insulin and D50 for hyperkalemia. Patient remains on amiodarone. 11/05: Patient needed to be sedated on fentanyl again to today. overnight krishna was replaced. Hyperkalemia->given kionex 60 for 5.6. Repeat K 6-> Dr. Grant informed and requested bumex, kionex, insulin, d50, calcium gluconate and sodium bicarb with repeat BMP in 2 hours which were placed. HR remains elevated. 11/06: Patient remained in atrial fibrillation/atrial flutter with heart rate in the 150s despite being on amnio drip and was given amnio bolus, Cardizem bolus and started on Cardizem drip by cardiology. Patient is on beta-blockers p.o. scheduled and to feedings changed to Nepro. Kayexalate was given in the morning by nephrology due to hyperkalemia. 11/07: Patient is only responsive to mild stimuli, precedex added in an attempt to wean off fentanyl gtt to better assess her mental status. Neurology also on consult, pending MRI and EEG. Patient remains in Aflutter this am, HR in the 80 to 90s, still on amiodarone and heparin gtt. 11/08: Fentanyl gtt is off, only on precedex gtt. Patient is still not following any commands. MRI brain and EEG completed. Neuro recommendations noted, sedatives agents decreased. FWF added for hypernatremia and low K repleted, repe at labs ordered. Placed a call and spoke with patient's daughter, Eva Brown . She was updated on patient's conditions and status. All questions and concerns were voiced at this time. 11/09: Patient is awake and alert this am, following commands and appropriate. Remains on precedex gtt, plan for possible PST today. Hypertensive overnight, meds adjusted by Cardio and PRN Hydralazine added for SBP greater than 160. CT dislodged overnight, CXR is stable with no significant change. F/U CXR in the am. Patient's daughter, Eva Brown, visited with patient. She was updated on patient's status and goal of care for today. All questions and concerns were voiced at this time. 11/10: Mentation remains intact, still on precedex gtt. This am CXR noted still with fluid overload s/p X1 dose of IV lasix, good response from IV lasix overnight. Hypernatremia improved, D5W d/dayday. Still with persistent hypokalemia, continue electrolytes replacement and frequent lab check. Daily IV lasix and aldactone added by Cardio. Patient is also with persistent low grade fevers overnight, leukocytosis with mild improvement this am. Will get a repeat sputum culture, hold off on IV abx for now. Consider ID consult if fevers and leukocytosis persist. Patient tolerated PST X4hrs yesterday. PST again today, plan to wean to extubate if tolerated. 11/11: IAM overnight. Off precedex gtt and tolerated PST this am. Plan to wean to extubate today. Additional IV lasix given, plan to keep patient at a net negative balance for better lung compliance. F/U CXR in the am. K improved this am, repeat BMP this afternoon since diuresing. Remains with low grade fevers, leukocytosis downtrending, will continue to monitor. Speech/PT/OT ordered 11/12: S/p extubation, now stable on 3L NC. This am CXR noted with no significant changes, lasix changed to IV X4days BID. Drop in H&H this am, and Lt. flank ecchymosis noted. Heparin gtt on hold for now and orders placed for 1 unit of PRBCs and Ct Abd/Pelvis w/o con to r/o retroperitoneal bleed. Pending speech swallow eval, keep patient NPO for now. Patient is stable for IMCU status 11/13: Patient with increased WOB and tachycardia this am, patient was placed on Bipap and precedex gtt was resumed. CXR with mild improvement. CT Abd/Pelvis also reviewed large hematomas noted at the Lt. retroperitoneum and left posterior lateral abdominal wall. Heparin gtt is already on hold, patient is hemodynamically stable. Vascular Surgery consulted for possible IVC filter eval. Patient s/p 2units of PRBCs, will continue to trend H&H and transfuse if hbg is less than 7. Worsening renal function this am, IF diuretic on hold for now. Patient is also febrile with spike in wbcs most likely reactive to bleed, will panculture and hold off on IV Abx for now. Patient also failed speech bedside swallow eval yesterday, NGT in placed plan to resume enteral nutrition 11/14: Patient had bilateral lower extremity Doppler ultrasound and vascular surgery has recommended multiphasic CT angio of the abdomen and pelvis with and without contrast if H/H drops and does not recommend IVC filter at this time as the DVTs are infrapopliteal and recommends a DVT study weekly for 2 weeks. FWF 250 q4 ml per nephro. Started on as needed Xanax and p.o. amiodarone. She did not pass her ST evaluation today. Will be transferred to [facility]. 11/15: Resting comfortably on encounter. Speech cleared for pureed diet. Remains on 3l satting 98 % on bedside encounter. Does not appear to be in respiratory distress. Will continue to hold AC, No ivc filter planned at this time. qweekly doppler to monitor for migration of DVT per vascular. If demonstrated, will consider IVC filter. CBC ordered for tomorrow, will continue monitoring in light of retroperitoneal hematoma. FWF increased by nephrology to 350cc q4hr d/t hypernatremia. UOP/renal function both improved. D/w cardiology, will continue amiodorone an additional 24hrs. Plan to change dosing of metoprolol. Continue to wean off of precedex. Continue xanax scheduled for anxiety. physical therapy recs noted, fernanda / ltac will discuss with CM. Continue IMCU monitoring. 11/16: Pulmonary congestion this AM. CXR ordered. Lasix 40 mg IV x 1 order this AM. Will monitor for 24 hrs. potential downgrade to medical floor tomorrow. 11/17: Persisting pulmonary congestion, was on bipap overnight into this AM. Will order additional lasix 40 mg IV x 2. CXR ordered for AM. Possible downgrade to floor tomorrow. Anticipate d/c sunday. 11/18: Patient seen and examined, continue weaning, will continue diuresis BID, discussed with daughter. 11/19: Patient seen and examined this morning doing well no acute distress noted. Lasix was increased to twice daily to 20 mg IV. Clinically improving. Patient will be transferred to telemetry today can be switched to Lasix p.o. twice daily in a.m. She has her weekly Doppler of lower extremity tomorrow vascular is following for this. She was taken off anticoagulation secondary to retroperitoneal bleed., The anticoagulation was started initially for atrial fibrillation and an infrapopliteal DVT. During her hospital stay she had a prolonged ventilator management and was successfully weaned off. She also received a total of 4 units of packed red blood cell. Hemoglobin has remained stable. Anticipate discharge in next 48 hours if continues to clinically stay stable. : Transferred from ICU on 11/19. Progressive improving. Currently awake and oriented. O2 weaned to 4 L. Hemodynamically stable. BP control being optimized. MiraLAX for constipation. Hemoglobin stable on the heparin infusion, being monitored closely with history of retroperitoneal bleed. 11/21: Patient remains mostly bedridden. She is awake and oriented on 2 L of O2. Repeat ultrasound showed extension of left peroneal DVT into popliteal vein. Heparin was discontinued for significant retroperitoneal bleed and off anticoagulation since. Vascular surgery plan for placement of IVC filter tomorrow. Patient is chest pains, palpitations, hemoptysis. She has some cough. Left lower extremity pain likely from DVT better today. Discussed with the patient, nursing staff and vascular surgery. 11/22: The infrapopliteal vein thrombosis has propagated to the left popliteal vein. Vascular surgery to perform IVC filter placement today. 11/23: Vascular surgery placed IVC filter yesterday. Continue metoprolol 100 mg p.o. twice daily, Aldactone 25 mg p.o. daily and losartan 25 mg p.o. daily. Patient still requiring BiPAP (IPAP18, EPAP8) with FiO2 of 30%. Continue to wean oxygen per pulmonary recommendations. Nurse reports patient is having vaginal bleeding. We will check serial CBC and pelvic ultrasound 11/24: I discussed with cardiology yesterday the need for a LifeVest. LifeVest is ordered and pending. Patient is s/p IVC filter placement. Continue metoprolol 100 mg p.o. twice daily, Aldactone 25 mg p.o. daily and losartan 25 mg p.o. da amy. Patient still requiring BiPAP (IPAP18, EPAP8) with FiO2 of 30%. Continue to wean oxygen per pulmonary recommendations. No further reports of vaginal bleeding. Pelvic ultrasound negative 11/25: Awaiting for LifeVest. Patient is s/p IVC filter placement. Continue metoprolol 100 mg p.o. twice daily, Aldactone 25 mg p.o. daily and losartan 25 mg p.o. daily. Patient still requiring BiPAP (IPAP18, EPAP8) with FiO2 of 30%. Continue to wean oxygen per pulmonary recommendations. 11/26: Physical therapy recommends subacute rehab. Still awaiting LifeVest. Patient is s/p IVC filter placement. Continue metoprolol 100 mg p.o. twice daily, Aldactone 25 mg p.o. daily and losartan 25 mg p.o. daily. Patient still requiring BiPAP (IPAP18, EPAP8) with FiO2 of 30% at night. Continue to wean oxygen per pulmonary recommendations. Patient currently with 2 L O2. 11/27: Physical therapy recommends subacute rehab. Patient has a LifeVest. Patient's left lower extremity pain likely related to DVT. Continue pain control. Continue metoprolol 100 mg p.o. twice daily, Aldactone 25 mg p.o. daily and losartan 25 mg p.o. daily. Patient still requiring BiPAP (IPAP18, EPAP8) with FiO2 of 30% at night. History Interval history: No new issues overnight. Hospitalist Physical - Constitutional Vitals: Temp Pulse Resp BP Pulse Ox 98.3 F 91 H 16 110/73 98 11/27/21 07:41 11/27/21 07:41 11/27/21 07:41 11/27/21 09:46 11/27/21 07:41 General appearance: Present: no acute distress, obese (Morbidly obese) - EENT Eyes: Present: PERRL, EOM intact ENT: hearing intact, clear oral mucosa, dentition normal - Neck Neck: Present: supple, normal ROM - Respiratory Respiratory effort: normal Respiratory: bilateral: CTA - Cardiovascular Rhythm: regular Heart Sounds: Present: S1 & S2. Absent: gallop, rub - Extremities Extremities: no ischemia, No edema, Full ROM - Abdominal General gastrointestinal: soft, non-tender, non-distended, normal bowel sounds - Integumentary Integumentary: Present: clear, warm, dry - Neurologic Neurologic: CNII-XII intact, moves all extremities HEART Score - HEART Score Troponin: Troponin T 1.150 ng/mL (0.00-0.029) H* D 10/29/21 22:34 Results - Labs CBC & Chem 7: 11/24/21 07:19 11/24/21 07:19 Labs: Laboratory Last Values WBC 10.6 K/mm3 (4.5-11.0) 11/24/21 07:19 RBC 3.12 M/mm3 (3.65-5.03) L 11/24/21 07:19 Hgb 9.3 gm/dl (10.1-14.3) L 11/24/21 07:19 Hct 27.2 % (30.3-42.9) L 11/24/21 07:19 MCV 87 fl (79-97) 11/24/21 07:19 MCH 30 pg (28-32) 11/24/21 07:19 MCHC 34 % (30-34) 11/24/21 07:19 RDW 16.0 % (13.2-15.2) H 11/24/21 07:19 Plt Count 255 K/mm3 (140-440) 11/24/21 07:19 Lymph % (Auto) 10.3 % (13.4-35.0) L 11/24/21 07:19 [place] % (Auto) 10.0 % (0.0-7.3) H 11/24/21 07:19 Eos % (Auto) 3.7 % (0.0-4.3) 11/24/21 07:19 Baso % (Auto) 0.8 % (0.0-1.8) 11/24/21 07:19 Lymph # (Auto) 1.1 K/mm3 (1.2-5.4) L 11/24/21 07:19 [place] # (Auto) 1.1 K/mm3 (0.0-0.8) H 11/24/21 07:19 Eos # (Auto) 0.4 K/mm3 (0.0-0.4) 11/24/21 07:19 Baso # (Auto) 0.1 K/mm3 (0.0-0.1) 11/24/21 07:19 Add Manual Diff Complete 11/07/21 06:30 Total Counted 100 11/07/21 06:30 Seg Neutrophils % 75.2 % (40.0-70.0) H 11/24/21 07:19 Seg Neuts % (Manual) 77.0 % (40.0-70.0) H 11/07/21 06:30 Band Neutrophils % 1.0 % 11/07/21 06:30 Lymphocytes % (Manual) 11.0 % (13.4-35.0) L 11/07/21 06:30 Reactive Lymphs % (Man) 3.0 % 11/07/21 06:30 Monocytes % (Manual) 2.0 % (0.0-7.3) 11/07/21 06:30 Eosinophils % (Manual) 0 % (0.0-4.3) 11/07/21 06:30 Basophils % (Manual) 0 % (0.0-1.8) 11/07/21 06:30 Metamyelocytes % 1.0 % 11/07/21 06:30 Myelocytes % 5.0 % 11/07/21 06:30 Promyelocytes % 0 % 11/07/21 06:30 Blast Cells % 0 % 11/07/21 06:30 Nucleated RBC % 2.0 % (0.0-0.9) H 11/07/21 06:30 Seg Neutrophils # 7.9 K/mm3 (1.8-7.7) H 11/24/21 07:19 Seg Neutrophils # Man 12.3 K/mm3 (1.8-7.7) H 11/07/21 06:30 Band Neutrophils # 0.2 K/mm3 11/07/21 06:30 Lymphocytes # (Manual) 1.8 K/mm3 (1.2-5.4) 11/07/21 06:30 Abs React Lymphs (Man) 0.5 K/mm3 11/07/21 06:30 Monocytes # (Manual) 0.3 K/mm3 (0.0-0.8) 11/07/21 06:30 Eosinophils # (Manual) 0.0 K/mm3 (0.0-0.4) 11/07/21 06:30 Basophils # (Manual) 0.0 K/mm3 (0.0-0.1) 11/07/21 06:30 Metamyelocytes # 0.2 K/mm3 11/07/21 06:30 Myelocytes # 0.8 K/mm3 11/07/21 06:30 Promyelocytes # 0.0 K/mm3 11/07/21 06:30 Blast Cells # 0.0 K/mm3 11/07/21 06:30 WBC Morphology Not Reportable 11/07/21 06:30 Hypersegmented Neuts Not Reportable 11/07/21 06:30 Hyposegmented Neuts Not Reportable 11/07/21 06:30 Hypogranular Neuts Not Reportable 11/07/21 06:30 Smudge Cells Not Reportable 11/07/21 06:30 Toxic Granulation Not Reportable 11/07/21 06:30 Toxic Vacuolation Not Reportable 11/07/21 06:30 Dohle Bodies Not Reportable 11/07/21 06:30 Pelger-Huet Anomaly Not Reportable 11/07/21 06:30 Manny Rods Not Reportable 11/07/21 06:30 Platelet Estimate Consistent w auto 11/07/21 06:30 Clumped Platelets Not Reportable 11/07/21 06:30 Plt Clumps, EDTA Not Reportable 11/07/21 06:30 Large Platelets 1+ 11/07/21 06:30 Giant Platelets Not Reportable 11/07/21 06:30 Platelet Satelliting Not Reportable 11/07/21 06:30 Plt Morphology Comment Not Reportable 11/07/21 06:30 RBC Morphology Not Reportable 11/07/21 06:30 Dimorphic RBCs Not Reportable 11/07/21 06:30 Polychromasia Not Reportable 11/07/21 06:30 Hypochromasia 1+ 11/07/21 06:30 Poikilocytosis Not Reportable 11/07/21 06:30 Anisocytosis Not Reportable 11/07/21 06:30 Microcytosis Not Reportable 11/07/21 06:30 Macrocytosis Not Reportable 11/07/21 06:30 Spherocytes 1+ 11/07/21 06:30 Pappenheimer Bodies Not Reportable 11/07/21 06:30 Sickle Cells Not Reportable 11/07/21 06:30 Target Cells 1+ 11/07/21 06:30 Tear Drop Cells Not Reportable 11/07/21 06:30 Ovalocytes Not Reportable 11/07/21 06:30 Helmet Cells Not Reportable 11/07/21 06:30 [place] Bodies Not Reportable 11/07/21 06:30 [place] Rings Not Reportable 11/07/21 06:30 [place] Cells Not Reportable 11/07/21 06:30 Bite Cells Not Reportable 11/07/21 06:30 Crenated Cell Not Reportable 11/07/21 06:30 Elliptocytes Not Reportable 11/07/21 06:30 Acanthocytes (Spur) Not Reportable 11/07/21 06:30 Rouleaux Not Reportable 11/07/21 06:30 Hemoglobin C Crystals Not Reportable 11/07/21 06:30 Schistocytes Not Reportable 11/07/21 06:30 Malaria parasites Not Reportable 11/07/21 06:30 Magdy Bodies Not Reportable 11/07/21 06:30 Hem Pathologist Commnt No 11/07/21 06:30 PT 17.2 Sec. (12.2-14.9) H 10/30/21 16:30 INR 1.27 (0.87-1.13) H 10/30/21 16:30 APTT 44.4 Sec. (24.2-36.6) H 10/30/21 16:30 D-Dimer > 50071 ng/mlDDU (0-234) H 10/30/21 Unknown Heparin Anti-Xa Level 0.62 U.I./ml (0.3-0.7) 11/12/21 03:30 ABG pH 7.475 pH Units (7.350-7.450) H 11/11/21 13:53 ABG pCO2 45.0 mm Hg 11/11/21 13:53 ABG pO2 64.1 mm Hg (80.0-90.0) L 11/11/21 13:53 ABG HCO3 32.4 mmol/L (20.0-26.0) H 11/11/21 13:53 ABG O2 Saturation 96.3 % (95.0-99.0) 11/11/21 13:53 ABG O2 Content 10.1 (0.0-44) 11/11/21 13:53 ABG Base Excess 8.0 mmol/L (-2.0-3.0) H 11/11/21 13:53 ABG Hemoglobin 7.6 gm/dl (12.0-16.0) L 11/11/21 13:53 ABG Carboxyhemoglobin 1.8 % (0.0-5.0) 11/11/21 13:53 ABG Methemoglobin 0.5 % (0.0-1.5) 11/11/21 13:53 Oxyhemoglobin 94.0 % (95.0-99.0) L 11/11/21 13:53 FiO2 32 % 11/11/21 13:53 Sodium 138 mmol/L (137-145) 11/24/21 07:19 Potassium 3.2 mmol/L (3.6-5.0) L 11/24/21 07:19 Chloride 96.7 mmol/L (98-107) L 11/24/21 07:19 Carbon Dioxide 30 mmol/L (22-30) 11/24/21 07:19 Anion Gap 15 mmol/L 11/24/21 07:19 BUN 10 mg/dL (7-17) 11/24/21 07:19 Creatinine 1.0 mg/dL (0.6-1.2) 11/24/21 07:19 Estimated GFR > 60 ml/min 11/24/21 07:19 BUN/Creatinine Ratio 10 % 11/24/21 07:19 Glucose 125 mg/dL (65-100) H 11/24/21 07:19 POC Glucose 129 mg/dL (70-105) H 11/27/21 07:44 Hemoglobin A1c 6.7 % (4-6) H 10/31/21 04:30 Lactic Acid 0.70 mmol/L (0.7-2.0) 10/31/21 15:45 Calcium 8.7 mg/dL (8.4-10.2) 11/24/21 07:19 Phosphorus 3.10 mg/dL (2.5-4.5) 11/19/21 14:38 Magnesium 1.60 mg/dL (1.7-2.3) L 11/19/21 14:38 Ferritin 208.4 ng/mL (10.0-200.0) H 10/30/21 Unknown Total Bilirubin < 0.20 mg/dL (0.1-1.2) 11/06/21 02:35 AST 21 units/L (5-40) 11/06/21 02:35 ALT 77 units/L (7-56) H 11/06/21 02:35 Alkaline Phosphatase 84 units/L (35-129) 11/06/21 02:35 Ammonia 31.0 umol/L (25-60) 10/29/21 15:10 Lactate Dehydrogenase 469 units/L (91-180) H 10/30/21 Unknown Troponin T 1.150 ng/mL (0.00-0.029) H* D 10/29/21 22:34 C-Reactive Protein 13.40 mg/dL (0.00-1.30) H 10/30/21 Unknown Total Protein 6.3 g/dL (6.3-8.2) 11/06/21 02:35 Albumin 3.0 g/dL (3.9-5) L 11/06/21 02:35 Albumin/Globulin Ratio 0.9 % 11/06/21 02:35 Triglycerides 68 mg/dL (2-149) 10/29/21 19:40 Cholesterol 98 mg/dL (50-199) 10/29/21 19:40 LDL Cholesterol Direct 43 mg/dL (50-130) L 10/29/21 19:40 HDL Cholesterol 50 mg/dL (40-59) 10/29/21 19:40 Cholesterol/HDL Ratio 1.96 % 10/29/21 19:40 Procalcitonin 61.95 ng/mL (<0.15) 10/30/21 Unknown TSH 3.080 mlU/mL (0.270-4.200) 10/29/21 15:10 Urine Color Yellow (Yellow) 11/13/21 08:30 Urine Turbidity Slightly-cloudy (Clear) 11/13/21 08:30 Urine pH 6.0 (5.0-7.0) 11/13/21 08:30 Ur Specific [place] 1.010 (1.003-1.030) 11/13/21 08:30 Urine Protein <15 mg/dl mg/dL (Negative) 11/13/21 08:30 Urine Glucose (UA) Neg mg/dL (Negative) 11/13/21 08:30 Urine Ketones Tr mg/dL (Negative) 11/13/21 08:30 Urine Blood Sm (Negative) 11/13/21 08:30 Urine Nitrite Neg (Negative) 11/13/21 08:30 Urine Bilirubin Neg (Negative) 11/13/21 08:30 Urine Urobilinogen < 2.0 mg/dL (<2.0) 11/13/21 08:30 Ur Leukocyte Esterase Neg (Negative) 11/13/21 08:30 Urine WBC (Auto) < 1.0 /HPF (0.0-6.0) 11/13/21 08:30 Urine RBC (Auto) < 1.0 /HPF (0.0-6.0) 11/13/21 08:30 U Epithel Cells (Auto) < 1.0 /HPF (0-13.0) 11/13/21 08:30 Urine Mucus Few /HPF 10/29/21 18:15 Urine Eosinophils None seen (None Seen) 11/04/21 Unknown Urine Creatinine 190.9 mg/dL (0.1-20.0) H 11/04/21 Unknown Protein/Creatinin Ratio 0.90 11/04/21 Unknown Urine Sodium 10 mmol/L 11/04/21 Unknown Urine Total Protein 172 mg/dL (5-11.8) H 11/04/21 Unknown Salicylates < 0.3 mg/dL (2.8-20.0) L 10/29/21 15:10 Urine Opiates Screen Negative 10/29/21 18:15 Urine Methadone Screen Negative 10/29/21 18:15 Acetaminophen 5.0 ug/mL (10.0-30.0) L 10/29/21 15:10 Ur Barbiturates Screen Negative 10/29/21 18:15 Ur Phencyclidine Scrn Negative 10/29/21 18:15 Ur Amphetamines Screen Negative 10/29/21 18:15 U Benzodiazepines Scrn Negative 10/29/21 18:15 Urine Cocaine Screen Negative 10/29/21 18:15 U Marijuana (THC) Screen Negative 10/29/21 18:15 Drugs of Abuse Note Disclamer 10/29/21 18:15 Plasma/Serum Alcohol < 0.01 % (0-0.07) 10/29/21 15:10 Coronavirus (PCR) Negative (Negative) 10/30/21 Unknown Blood Type O POSITIVE 11/12/21 04:15 Antibody Screen Negative 11/12/21 04:15 Crossmatch See Detail 11/12/21 04:15 Krishna/IV: Voiding Method Toilet Active Medications - Current Medications Current Medications: Generic Name Dose Route Start Last Admin Trade Name Freq PRN Reason Stop Dose Admin Acetaminophen 650 mg 10/29/21 17:04 11/12/21 22:53 Acetaminophen 650 Mg Rect Supp MO 650 mg Q6H PRN Administration Pain MILD(1-3)/Fever >100.5/NIEVES Acetaminophen 650 mg 11/19/21 16:35 11/27/21 04:43 Acetaminophen 325 Mg Tab PO 650 mg Q6HR PRN Administration PAIN Alprazolam 0.25 mg 11/14/21 14:29 11/26/21 20:34 Alprazolam 0.25 Mg Tab PO 0.25 mg Q8H PRN Administration Anxiety Dextrose 0 ml 11/04/21 13:48 11/12/21 05:45 Dextrose 10% *Hypoglycemia IV 50 ml PRN PRN Administration Hypoglycemia Docusate Sodium 100 mg 11/18/21 15:00 11/27/21 09:46 Docusate Sodium 100 Mg Cap PO 100 mg BID RAMON Administration Famotidine 10 mg 11/06/21 10:00 11/27/21 09:46 Famotidine 10 Mg Tab PO 10 mg BID RAMON Administration Furosemide 20 mg 11/18/21 10:00 11/27/21 09:46 Furosemide 20 Mg/2 Ml Inj IV 20 mg BID RAMON Administration Hydralazine HCl 50 mg 11/22/21 22:00 11/27/21 05:38 Hydralazine 25 Mg Tab PO Not Given Q8HR RAMON Hydrophilic Ointment 1 applic 10/29/21 14:29 11/09/21 08:51 Lip Therapy Vaseline TP 1 applic Q2HR PRN Administration Dry Lips Insulin Human Lispro 0 unit 11/25/21 22:00 11/27/21 09:43 Insulin Lispro 100 Unit/Ml SUB-Q Not Given ACHS [facility] Protocol Lactulose 20 gm 11/18/21 14:43 11/18/21 15:06 Lactulose 20 Gm/30 Ml Oral Liqd PO 20 gm Q6H PRN Administration Constipation Losartan Potassium 50 mg 11/20/21 11:00 11/26/21 21:52 Losartan 25 Mg Tab PO 50 mg BID RAMON Administration Melatonin 10 mg 11/22/21 17:31 11/26/21 21:52 Melatonin 5 Mg Tab PO 10 mg QHS PRN Administration Sleep Metoprolol Tartrate 100 mg 11/16/21 22:00 11/27/21 09:45 Metoprolol Tartrate 100 Mg Tab PO 100 mg BID RAMON Administration Multi-Ingred Cream/Lotion/Oil/Oint 1 applic 10/29/21 14:29 11/06/21 09:25 Mineral Oil/Petrolatum, White Ophth Oint 3.5 Gm OU 1 applic Q4HR PRN Administration Dry Eye(s) Polyethylene Glycol 17 gm 11/20/21 12:47 11/25/21 08:30 Polyethylene Glycol 3350 17 Gm Powder PO 17 gm QDAY PRN Administration Constipation Senna/Docusate Sodium 1 tab 11/16/21 22:00 11/27/21 09:45 Sennosides/Docusate Sodium 8.6/50 Mg Tab PO 1 tab BID RAMON Administration Sodium Chloride 10 ml 10/29/21 22:00 11/27/21 09:46 Sodium Chloride 0.9% 10 Ml Flush Syringe IV 10 ml BID ARMON Administration Sodium Chloride 10 ml 10/29/21 17:04 Sodium Chloride 0.9% 10 Ml Flush Syringe IV PRN PRN LINE FLUSH Spironolactone 25 mg 11/10/21 10:00 11/27/21 09:46 Spironolactone 25 Mg Tab PO 25 mg QDAY RAMON Administration Nutrition/Malnutrition Assess - Dietary Evaluation Nutrition/Malnutrition Findings: Nutrition Notes Start: 10/30/21 09:50 Freq: Status: Active Protocol: Document 11/25/21 19:04 MEENU (Rec: 11/25/21 19:16 MEENU [id number]) Nutrition Notes Initial or Follow up Reassessment Current Diagnosis Sepsis,Hypertension, Respiratory Failure Other Pertinent Diagnosis s/p Cardiac Arrest, DVT, Anemia, Pneumonia, Pneumothorax, P Edema, HFrEF.. . Current Diet Mechanical Soft Diet (since B 11/22). Labs/Tests 11/24: K 3.2, Cl 96.7, Glu 125 . Pertinent Medications 11/25: Nutritionally unremarkable. Height 5 ft 10 in Weight 109.5 kg [place] Body Weight (kg) 68.18 BMI 34.6 Weight change and time frame 2.5 Kg body weight loss in 1 week reported. Weight Status Obese Subjective/Other Information RD consulr for routine F/U on Diet tolerance/advancement. Diet has advanced to Mechanical Soft. Pt's PO intake of meals has been Fair (50-75%), according to ADL notes. Percent of energy/protein needs met: Prescribed Mechanical Soft Diet provides for energy/ protein needs (2,048 Kcal/97 g ) during LOS. Burn Absent Trauma Absent GI Symptoms None Food Allergy No Skin Integrity/Comment Assessment WNL. Current % PO Fair (50-74%) Minimum of two criteria No #1 Nutrition Diagnosis Inadequate oral intake Comments: Pt's PO intake of meals has been Fair (50-75%), according to ADL notes. Diet advanced to Mechanical Soft. Diagnosis Progress(for reassessment Improved documentation) Is patient on ventilator? No Is Patient Ambulatory and/or Out of Bed No REE-([facility]-confined to bed) [phone] Kcal/Kg value to use for calculation 15 Approximate Energy Requirements Using 1643 kcal/Kg Calculation Used for Recommendations Kcal/kg Additional Notes Protein: 0.8-1.2 g/Kg IBW; 70- 105 g/day. Fluids: 1 ml/Kcal, or as per MD. Nutrition Intervention Change Diet Order: Continue Mechanical Soft Diet. Goal #1 Maintain body weight within +/ -3% of admission body weight during LOS. Goal #2 Facilitate PO intake of meals with mechanical modification during LOS. Follow-Up By: 12/02/21 Additional Comments Continue monitoring food tolerance, %PO intake of meals , and BM.
[2021-11-27] MEDS: ALPRAZolam 0.25 MG TAB PO PRN (11:24)
[2021-11-27] MEDS: LOSARTAN 25 MG TAB PO SCH ×2 (11:29→21:31)
[2021-11-27] MEDS: oxyCODONE /ACETAMINOPHEN 5-325MG TAB PO PRN ×3 (14:37→21:32)
--- NOTE | 2021-11-27 16:55 | Progress Note ---
Assessment and Plan 66 YO Female with Obesity presents to ED for evaluation. Patient is intubated and on ventilatory support . Patient was attending [facility] when the patient collapsed and lost consciousness. Witnesses began CPR. EMS was notified and upon arrival the patient was found to be in distress without perfusing cardiac rhythm. Patient initiated on ACLS protocol and subsequently intubated in the field and subsequent transported to [facility] for further care and evaluation of the aforementioned symptoms. The patient regained spontaneous ci rculation during transport. Patient seen and evaluated upon arrival and found to have acute hypoxemic respiratory failure, septic shock suspected secondary to aspiration pneumonia, metabolic acidosis, toxic metabolic encephalopathy, shock liver, and cardiac arrest with return of perfusing cardiac rhythm after initiation of ACLS protocol. Patient initiated on sepsis protocol as well as pneumonia protocol. Patient admitted to ICU. No reports of fever, chills, chest pain, palpitation, productive cough, skin rash, recent contact, known exposure to COVID-19. Patient has history of diabetes and hypertension. According to the chart review, patient has no history of smoking, alcohol or drug abuse. Patient eventually extubated. Patient transfered to Telemetry. Patient presently on 2 litres O2. O2 saturation 100%.BIPAP 18/8, Rate 14, FIO2 30% stand by in the room. Patient Obese , Sleeping No acute respiratory distress. Patient afebrile. No leukocytosis. Blood pressure 105/69, pulse 85, Respirations 17. Patient using chest vest. Chest xray done 11/18/21 reported Improving interstitial edema. Bilateral duplex study of legs 11/21/21 reported Acute occlusive thrombus is now visualized within the right peroneal veins. There is propagation of the left calf DVT into the popliteal vein on today's exam (near occlusive). Patient presently on Lasix and famotidine. According to vascular note anti coagulation contraindicated because of retroperitoneal bleed. DVT management as per vascular surgery. - Patient Problems (1) Acute hypoxemic respiratory failure Current Visit: Yes Status: Acute Plan to address problem: Patient presently on 2 litres O2. O2 saturation 100%. BIPAP 18/8, rate 14, FIO2 30% stand by in the room. According to vascular note anti coagulation contraindicated because of retroperitoneal bleed. Continue famotidine. (2) Cardiopulmonary arrest Current Visit: Yes Status: Acute Plan to address problem: S/P Resucitation to ROSC. (3) Atrial fibrillation and flutter Current Visit: Yes Status: Acute Plan to address problem: Management as per cardiology. (4) Acute metabolic encephalopathy Current Visit: Yes Status: Acute Plan to address problem: Management as per primary care. (5) Acute kidney injury Current Visit: Yes Status: Acute Plan to address problem: Management as per nephrology. (6) DVT (deep venous thrombosis) Current Visit: Yes Status: Acute Qualifiers: Affected thrombotic vein of extremity: peroneal Plan to address problem: According to vascular note anti coagulation contraindicated because of retroperitoneal bleed. Management as per vascular surgery. (7) Obesity hypoventilation syndrome Current Visit: Yes Status: Acute Plan to address problem: BIPAP during night time and prn for sleepiness and shortness of breath during day time. BIPAP 18/8, Rate 14, FIO2 30% (8) Pneumothorax, right Current Visit: Yes Status: Acute Plan to address problem: S/P chest tube placement and expansion of right lung. Subjective Date of service: 11/27/21 Principal diagnosis: AHRF; Cardiac arrest; R. pneumothorax; pneumonia; AMS; DVT's; SIERRA; Obesity Interval history: 66 YO Female with Obesity presents to ED for evaluation. Patient is intubated and on ventilatory support . Patient was attending [facility] when the patient collapsed and lost consciousness. Witnesses began CPR. EMS was notified and upon arrival the patient was found to be in distress without perfusing cardiac rhythm. Patient initiated on ACLS protocol and subsequently intubated in the field and subsequent transported to [facility] for further care and evaluation of the aforementioned symptoms. The patient regained spontaneous circulation during transport. Patient seen and evaluated upon arrival and found to have acute hypoxemic respiratory failure, septic shock suspected secondary to aspiration pneumonia, metabolic acidosis, toxic metabolic encephalopathy, shock liver, and cardiac arrest with return of perfusing cardiac rhythm after initiation of ACLS protocol. Patient initiated on sepsis protocol as well as pneumonia protocol. Patient admitted to ICU. No reports of fever, chills, chest pain, palpitation, productive cough, skin rash, recent contact, known exposure to COVID-19. Patient has history of diabetes and hypertension. According to the chart review, patient has no history of smoking, alcohol or drug abuse. Patient eventually extubated. Patient transfered to Telemetry. Patient presently on 2 litres O2. O2 saturation 100%.BIPAP 18/8, Rate 14, FIO2 30% stand by in the room. Patient Obese , Sleeping No acute respiratory distress. Patient afebrile. No leukocytosis. Blood pressure 105/69, pulse 85, Respirations 17. Patient using chest vest. Chest xray done 11/18/21 reported Improving interstitial edema. Bilateral duplex study of legs 11/21/21 reported Acute occlusive thrombus is now visualized within the right peroneal veins. There is propagation of the left calf DVT into the popliteal vein on today's exam (near occlusive). Patient presently on Lasix and famotidine. According to vascular note anti coagulation contraindicated because of retroperitoneal bleed. DVT Management as per vascular surgery. Objective Vital Signs - 12hr 11/27/21 11/27/21 11/27/21 05:38 07:41 09:46 Temperature 98.3 F Pulse Rate 91 H 91 H Pulse Rate [ Right Radial] Respiratory 16 Rate Blood Pressure 93/56 110/73 110/73 O2 Sat by Pulse 98 Oximetry 11/27/21 11/27/21 10:00 12:19 Temperature 99.5 F Pulse Rate 84 71 Pulse Rate [ 74 Right Radial] Respiratory 18 16 Rate Blood Pressure 95/36 O2 Sat by Pulse 97 99 Oximetry Constitutional: no acute distress, alert, other (elderly obese female with mildly increased respiratory effort at rest ) Eyes: non-icteric ENT: oropharynx moist Neck: supple, no lymphadenopathy, no JVD, other (large circumference) Effort: mildly labored Ascultation: Bilateral: diminished breath sounds, rhonchi (scant) Percussion: Bilateral: not dull Cardiovascular: irregular rhythm, other (no R/M) Gastrointestinal: normoactive bowel sounds, soft, non-tender, other (obese) Integumentary: normal, other (Left flank ecchymosis with induration) Extremities: no cyanosis, pulses normal, no ischemia or petechiae, edema (2+) Neurologic: normal mental status, non-focal exam (grossly), pupils equal and round, motor strength normal and (weak) Psychiatric: mood appropriate, affect normal CBC and BMP: 11/24/21 07:19 11/24/21 07:19 ABG, PT/INR, D-dimer: ABG ABG pH 7.475 pH Units (7.350-7.450) H 11/11/21 13:53 ABG pCO2 45.0 mm Hg 02/18/22 13:53 ABG pO2 64.1 mm Hg (80.0-90.0) L 11/11/21 13:53 ABG O2 Saturation 96.3 % (95.0-99.0) 11/11/21 13:53 PT/INR, D-dimer PT 17.2 Sec. (12.2-14.9) H 10/30/21 16:30 INR 1.27 (0.87-1.13) H 10/30/21 16:30 D-Dimer > 04082 ng/mlDDU (0-234) H 10/30/21 Unknown Abnormal lab findings: Abnormal Labs 10/29/21 10/29/21 10/29/21 15:10 15:10 15:10 WBC 27.8 H RBC Hgb Hct MCH 27 L RDW Plt Count Lymph % (Auto) [place] % (Auto) Lymph # (Auto) [place] # (Auto) Seg Neutrophils % Seg Neuts % (Manual) 78.0 H Lymphocytes % (Manual) 10.0 L Nucleated RBC % Seg Neutrophils # Seg Neutrophils # Man 21.7 H Monocytes # (Manual) 1.4 H PT INR APTT D-Dimer Heparin Anti-Xa Level ABG pH ABG pO2 ABG HCO3 ABG O2 Saturation ABG Base Excess ABG Hemoglobin Oxyhemoglobin Sodium Potassium Chloride Carbon Dioxide BUN Creatinine Glucose POC Glucose Hemoglobin A1c Lactic Acid 6.80 H* Calcium Phosphorus Magnesium Ferritin AST ALT Alkaline Phosphatase Lactate Dehydrogenase Troponin T 0.089 H C-Reactive Protein Total Protein Albumin LDL Cholesterol Direct Urine Creatinine Urine Total Protein Salicylates Acetaminophen Crossmatch 10/29/21 10/29/21 10/29/21 15:10 15:10 15:10 WBC RBC Hgb Hct MCH RDW Plt Count Lymph % (Auto) [place] % (Auto) Lymph # (Auto) [place] # (Auto) Seg Neutrophils % Seg Neuts % (Manual) Lymphocytes % (Manual) Nucleated RBC % Seg Neutrophils # Seg Neutrophils # Man Monocytes # (Manual) PT INR APTT D-Dimer Heparin Anti-Xa Level ABG pH ABG pO2 ABG HCO3 ABG O2 Saturation ABG Base Excess ABG Hemoglobin Oxyhemoglobin Sodium 136 L Potassium 2.8 L* Chloride 93.4 L Carbon Dioxide 20 L BUN Creatinine Glucose 330 H POC Glucose Hemoglobin A1c Lactic Acid Calcium Phosphorus Magnesium Ferritin AST 1013 H ALT 1289 H Alkaline Phosphatase 246 H Lactate Dehydrogenase Troponin T C-Reactive Protein Total Protein Albumin LDL Cholesterol Direct Urine Creatinine Urine Total Protein Salicylates < 0.3 L Acetaminophen 5.0 L Crossmatch 10/29/21 10/29/21 10/29/21 15:11 16:01 19:29 WBC RBC Hgb Hct MCH RDW Plt Count Lymph % (Auto) [place] % (Auto) Lymph # (Auto) [place] # (Auto) Seg Neutrophils % Seg Neuts % (Manual) Lymphocytes % (Manual) Nucleated RBC % Seg Neutrophils # Seg Neutrophils # Man Monocytes # (Manual) PT INR APTT D-Dimer Heparin Anti-Xa Level ABG pH 7.307 L ABG pO2 64.1 L ABG HCO3 ABG O2 Saturation 90.8 L ABG Base Excess -2.9 L ABG Hemoglobin Oxyhemoglobin 89.3 L Sodium Potassium Chloride Carbon Dioxide BUN Creatinine Glucose POC Glucose Hemoglobin A1c Lactic Acid 2.60 H* Calcium Phosphorus Magnesium 2.90 H Ferritin AST ALT Alkaline Phosphatase Lactate Dehydrogenase Troponin T C-Reactive Protein Total Protein Albumin LDL Cholesterol Direct Urine Creatinine Urine Total Protein Salicylates Acetaminophen Crossmatch 10/29/21 10/29/21 10/30/21 19:40 22:34 04:30 WBC 16.2 H RBC Hgb Hct MCH 26 L RDW 15.5 H Plt Count Lymph % (Auto) 6.2 L [place] % (Auto) Lymph # (Auto) 1.0 L [place] # (Auto) 0.9 H Seg Neutrophils % 88.1 H Seg Neuts % (Manual) Lymphocytes % (Manual) Nucleated RBC % Seg Neutrophils # 14.2 H Seg Neutrophils # Man Monocytes # (Manual) PT INR APTT D-Dimer Heparin Anti-Xa Level ABG pH ABG pO2 ABG HCO3 ABG O2 Saturation ABG Base Excess ABG Hemoglobin Oxyhemoglobin Sodium Potassium Chloride Carbon Dioxide BUN Creatinine Glucose POC Glucose Hemoglobin A1c Lactic Acid Calcium Phosphorus Magnesium Ferritin AST ALT Alkaline Phosphatase Lactate Dehydrogenase Troponin T 1.950 H* D 1.150 H* D C-Reactive Protein Total Protein Albumin LDL Cholesterol Direct 43 L Urine Creatinine Urine Total Protein Salicylates Acetaminophen Crossmatch 10/30/21 10/30/21 10/30/21 04:30 04:35 05:45 WBC RBC Hgb Hct MCH RDW Plt Count Lymph % (Auto) [place] % (Auto) Lymph # (Auto) [place] # (Auto) Seg Neutrophils % Seg Neuts % (Manual) Lymphocytes % (Manual) Nucleated RBC % Seg Neutrophils # Seg Neutrophils # Man Monocytes # (Manual) PT INR APTT D-Dimer Heparin Anti-Xa Level ABG pH ABG pO2 69.5 L ABG HCO3 ABG O2 Saturation ABG Base Excess -2.7 L ABG Hemoglobin Oxyhemoglobin 94.7 L Sodium Potassium Chloride Carbon Dioxide 21 L BUN Creatinine Glucose 159 H POC Glucose 151 H Hemoglobin A1c Lactic Acid Calcium 7.9 L D Phosphorus Magnesium Ferritin AST 461 H ALT 686 H Alkaline Phosphatase 130 H Lactate Dehydrogenase Troponin T C-Reactive Protein Total Protein 5.6 L D Albumin 3.2 L LDL Cholesterol Direct Urine Creatinine Urine Total Protein Salicylates Acetaminophen Crossmatch 10/30/21 10/30/21 10/30/21 11:24 15:59 16:30 WBC RBC Hgb Hct MCH RDW Plt Count Lymph % (Auto) [place] % (Auto) Lymph # (Auto) [place] # (Auto) Seg Neutrophils % Seg Neuts % (Manual) Lymphocytes % (Manual) Nucleated RBC % Seg Neutrophils # Seg Neutrophils # Man Monocytes # (Manual) PT 17.2 H INR 1.27 H APTT 44.4 H D-Dimer Heparin Anti-Xa Level ABG pH ABG pO2 ABG HCO3 ABG O2 Saturation ABG Base Excess ABG Hemoglobin Oxyhemoglobin Sodium Potassium Chloride Carbon Dioxide BUN Creatinine Glucose POC Glucose 153 H 109 H Hemoglobin A1c Lactic Acid Calcium Phosphorus Magnesium Ferritin AST ALT Alkaline Phosphatase Lactate Dehydrogenase Troponin T C-Reactive Protein Total Protein Albumin LDL Cholesterol Direct Urine Creatinine Urine Total Protein Salicylates Acetaminophen Crossmatch 10/30/21 10/30/21 10/30/21 23:00 Unknown Unknown WBC RBC Hgb Hct MCH RDW Plt Count Lymph % (Auto) [place] % (Auto) Lymph # (Auto) [place] # (Auto) Seg Neutrophils % Seg Neuts % (Manual) Lymphocytes % (Manual) Nucleated RBC % Seg Neutrophils # Seg Neutrophils # Man Monocytes # (Manual) PT INR APTT D-Dimer > 25645 H Heparin Anti-Xa Level 0.82 H ABG pH ABG pO2 ABG HCO3 ABG O2 Saturation ABG Base Excess ABG Hemoglobin Oxyhemoglobin Sodium Potassium Chloride Carbon Dioxide BUN Creatinine Glucose POC Glucose Hemoglobin A1c Lactic Acid Calcium Phosphorus Magnesium Ferritin 208.4 H AST ALT Alkaline Phosphatase Lactate Dehydrogenase Troponin T C-Reactive Protein Total Protein Albumin LDL Cholesterol Direct Urine Creatinine Urine Total Protein Salicylates Acetaminophen Crossmatch 10/30/21 10/31/21 10/31/21 Unknown 04:30 04:30 WBC 14.4 H RBC Hgb Hct MCH 26 L RDW Plt Count Lymph % (Auto) [place] % (Auto) Lymph # (Auto) [place] # (Auto) Seg Neutrophils % Seg Neuts % (Manual) Lymphocytes % (Manual) Nucleated RBC % Seg Neutrophils # Seg Neutrophils # Man Monocytes # (Manual) PT INR APTT D-Dimer Heparin Anti-Xa Level ABG pH ABG pO2 ABG HCO3 ABG O2 Saturation ABG Base Excess ABG Hemoglobin Oxyhemoglobin Sodium Potassium 3.5 L Chloride 107.5 H Carbon Dioxide 20 L BUN 28 H Creatinine 1.7 H Glucose 113 H POC Glucose Hemoglobin A1c Lactic Acid Calcium 7.9 L Phosphorus Magnesium Ferritin AST ALT Alkaline Phosphatase Lactate Dehydrogenase 469 H Troponin T C-Reactive Protein 13.40 H Total Protein Albumin LDL Cholesterol Direct Urine Creatinine Urine Total Protein Salicylates Acetaminophen Crossmatch 10/31/21 10/31/21 10/31/21 04:30 05:11 15:30 WBC RBC Hgb Hct MCH RDW Plt Count Lymph % (Auto) [place] % (Auto) Lymph # (Auto) [place] # (Auto) Seg Neutrophils % Seg Neuts % (Manual) Lymphocytes % (Manual) Nucleated RBC % Seg Neutrophils # Seg Neutrophils # Man Monocytes # (Manual) PT INR APTT D-Dimer Heparin Anti-Xa Level ABG pH 7.222 L ABG pO2 61.5 L ABG HCO3 ABG O2 Saturation 86.2 L ABG Base Excess -6.3 L ABG Hemoglobin 11.2 L Oxyhemoglobin 84.5 L Sodium Potassium Chloride Carbon Dioxide BUN Creatinine Glucose POC Glucose 106 H Hemoglobin A1c 6.7 H Lactic Acid Calcium Phosphorus Magnesium Ferritin AST ALT Alkaline Phosphatase Lactate Dehydrogenase Troponin T C-Reactive Protein Total Protein Albumin LDL Cholesterol Direct Urine Creatinine Urine Total Protein Salicylates Acetaminophen Crossmatch 10/31/21 10/31/21 10/31/21 16:07 16:35 17:45 WBC RBC Hgb Hct MCH RDW Plt Count Lymph % (Auto) [place] % (Auto) Lymph # (Auto) [place] # (Auto) Seg Neutrophils % Seg Neuts % (Manual) Lymphocytes % (Manual) Nucleated RBC % Seg Neutrophils # Seg Neutrophils # Man Monocytes # (Manual) PT INR APTT D-Dimer Heparin Anti-Xa Level ABG pH 7.267 L ABG pO2 58.3 L ABG HCO3 ABG O2 Saturation 88.3 L ABG Base Excess -5.9 L ABG Hemoglobin 10.1 L Oxyhemoglobin 86.5 L Sodium Potassium Chloride Carbon Dioxide BUN Creatinine Glucose POC Glucose 115 H Hemoglobin A1c Lactic Acid Calcium Phosphorus Magnesium Ferritin AST ALT Alkaline Phosphatase Lactate Dehydrogenase Troponin T C-Reactive Protein Total Protein Albumin LDL Cholesterol Direct Urine Creatinine 383.6 H Urine Total Protein Salicylates Acetaminophen Crossmatch 11/01/21 11/01/21 11/01/21 00:06 05:08 06:00 WBC 12.6 H RBC 3.43 L Hgb 8.9 L Hct 28.7 L MCH 26 L RDW 15.7 H Plt Count 130 L Lymph % (Auto) [place] % (Auto) Lymph # (Auto) [place] # (Auto) Seg Neutrophils % Seg Neuts % (Manual) Lymphocytes % (Manual) Nucleated RBC % Seg Neutrophils # Seg Neutrophils # Man Monocytes # (Manual) PT INR APTT D-Dimer Heparin Anti-Xa Level ABG pH ABG pO2 ABG HCO3 ABG O2 Saturation ABG Base Excess ABG Hemoglobin Oxyhemoglobin Sodium Potassium Chloride Carbon Dioxide BUN Creatinine Glucose POC Glucose 114 H 120 H Hemoglobin A1c Lactic Acid Calcium Phosphorus Magnesium Ferritin AST ALT Alkaline Phosphatase Lactate Dehydrogenase Troponin T C-Reactive Protein Total Protein Albumin LDL Cholesterol Direct Urine Creatinine Urine Total Protein Salicylates Acetaminophen Crossmatch 11/01/21 11/01/21 11/01/21 06:00 11:43 14:00 WBC RBC Hgb Hct MCH RDW Plt Count Lymph % (Auto) [place] % (Auto) Lymph # (Auto) [place] # (Auto) Seg Neutrophils % Seg Neuts % (Manual) Lymphocytes % (Manual) Nucleated RBC % Seg Neutrophils # Seg Neutrophils # Man Monocytes # (Manual) PT INR APTT D-Dimer Heparin Anti-Xa Level ABG pH 7.349 L ABG pO2 75.6 L ABG HCO3 ABG O2 Saturation ABG Base Excess -3.9 L ABG Hemoglobin 9.8 L Oxyhemoglobin 93.5 L Sodium Potassium Chloride 114.1 H Carbon Dioxide 20 L BUN 33 H Creatinine Glucose 131 H POC Glucose 151 H Hemoglobin A1c Lactic Acid Calcium 7.7 L Phosphorus Magnesium Ferritin AST 79 H ALT 259 H Alkaline Phosphatase Lactate Dehydrogenase Troponin T C-Reactive Protein Total Protein 5.5 L Albumin 2.7 L LDL Cholesterol Direct Urine Creatinine Urine Total Protein Salicylates Acetaminophen Crossmatch 11/01/21 11/01/21 11/02/21 16:45 22:55 05:12 WBC RBC Hgb Hct MCH RDW Plt Count Lymph % (Auto) [place] % (Auto) Lymph # (Auto) [place] # (Auto) Seg Neutrophils % Seg Neuts % (Manual) Lymphocytes % (Manual) Nucleated RBC % Seg Neutrophils # Seg Neutrophils # Man Monocytes # (Manual) PT INR APTT D-Dimer Heparin Anti-Xa Level ABG pH ABG pO2 ABG HCO3 ABG O2 Saturation ABG Base Excess ABG Hemoglobin Oxyhemoglobin Sodium Potassium Chloride Carbon Dioxide BUN Creatinine Glucose POC Glucose 119 H 129 H 140 H Hemoglobin A1c Lactic Acid Calcium Phosphorus Magnesium Ferritin AST ALT Alkaline Phosphatase Lactate Dehydrogenase Troponin T C-Reactive Protein Total Protein Albumin LDL Cholesterol Direct Urine Creatinine Urine Total Protein Salicylates Acetaminophen Crossmatch 11/02/21 11/02/21 11/02/21 05:35 05:35 09:35 WBC 13.5 H RBC 3.60 L Hgb 9.7 L Hct MCH 27 L RDW 15.7 H Plt Count Lymph % (Auto) [place] % (Auto) Lymph # (Auto) [place] # (Auto) Seg Neutrophils % Seg Neuts % (Manual) Lymphocytes % (Manual) Nucleated RBC % Seg Neutrophils # Seg Neutrophils # Man Monocytes # (Manual) PT INR APTT D-Dimer Heparin Anti-Xa Level ABG pH 7.208 L ABG pO2 75.9 L ABG HCO3 ABG O2 Saturation 93.6 L ABG Base Excess -4.3 L ABG Hemoglobin 9.1 L Oxyhemoglobin 91.6 L Sodium Potassium 5.2 H D Chloride 112.6 H Carbon Dioxide BUN 32 H Creatinine Glucose 152 H POC Glucose Hemoglobin A1c Lactic Acid Calcium 8.2 L Phosphorus Magnesium 2.70 H Ferritin AST ALT Alkaline Phosphatase Lactate Dehydrogenase Troponin T C-Reactive Protein Total Protein Albumin LDL Cholesterol Direct Urine Creatinine Urine Total Protein Salicylates Acetaminophen Crossmatch 11/02/21 11/02/21 11/02/21 11:44 17:13 23:43 WBC RBC Hgb Hct MCH RDW Plt Count Lymph % (Auto) [place] % (Auto) Lymph # (Auto) [place] # (Auto) Seg Neutrophils % Seg Neuts % (Manual) Lymphocytes % (Manual) Nucleated RBC % Seg Neutrophils # Seg Neutrophils # Man Monocytes # (Manual) PT INR APTT D-Dimer Heparin Anti-Xa Level ABG pH ABG pO2 ABG HCO3 ABG O2 Saturation ABG Base Excess ABG Hemoglobin Oxyhemoglobin Sodium Potassium Chloride Carbon Dioxide BUN Creatinine Glucose POC Glucose 173 H 148 H 137 H Hemoglobin A1c Lactic Acid Calcium Phosphorus Magnesium Ferritin AST ALT Alkaline Phosphatase Lactate Dehydrogenase Troponin T C-Reactive Protein Total Protein Albumin LDL Cholesterol Direct Urine Creatinine Urine Total Protein Salicylates Acetaminophen Crossmatch 11/03/21 11/03/21 11/03/21 04:59 06:00 06:00 WBC RBC 3.43 L Hgb 9.1 L Hct 29.0 L MCH 26 L RDW 16.4 H Plt Count Lymph % (Auto) [place] % (Auto) Lymph # (Auto) [place] # (Auto) Seg Neutrophils % Seg Neuts % (Manual) Lymphocytes % (Manual) Nucleated RBC % Seg Neutrophils # Seg Neutrophils # Man Monocytes # (Manual) PT INR APTT D-Dimer Heparin Anti-Xa Level 0.17 L ABG pH ABG pO2 ABG HCO3 ABG O2 Saturation ABG Base Excess ABG Hemoglobin Oxyhemoglobin Sodium Potassium Chloride Carbon Dioxide BUN Creatinine Glucose POC Glucose 167 H Hemoglobin A1c Lactic Acid Calcium Phosphorus Magnesium Ferritin AST ALT Alkaline Phosphatase Lactate Dehydrogenase Troponin T C-Reactive Protein Total Protein Albumin LDL Cholesterol Direct Urine Creatinine Urine Total Protein Salicylates Acetaminophen Crossmatch 11/03/21 11/03/21 11/03/21 06:00 09:20 11:58 WBC RBC Hgb Hct MCH RDW Plt Count Lymph % (Auto) [place] % (Auto) Lymph # (Auto) [place] # (Auto) Seg Neutrophils % Seg Neuts % (Manual) Lymphocytes % (Manual) Nucleated RBC % Seg Neutrophils # Seg Neutrophils # Man Monocytes # (Manual) PT INR APTT D-Dimer Heparin Anti-Xa Level ABG pH 7.274 L ABG pO2 75.6 L ABG HCO3 ABG O2 Saturation 94.9 L ABG Base Excess -2.5 L ABG Hemoglobin 9.3 L Oxyhemoglobin 92.9 L Sodium 149 H Potassium Chloride 117.5 H Carbon Dioxide BUN 32 H Creatinine Glucose 173 H POC Glucose 192 H Hemoglobin A1c Lactic Acid Calcium 8.1 L Phosphorus Magnesium Ferritin AST ALT Alkaline Phosphatase Lactate Dehydrogenase Troponin T C-Reactive Protein Total Protein Albumin LDL Cholesterol Direct Urine Creatinine Urine Total Protein Salicylates Acetaminophen Crossmatch 11/03/21 11/03/21 11/04/21 18:22 Unknown 00:09 WBC RBC Hgb Hct MCH RDW Plt Count Lymph % (Auto) [place] % (Auto) Lymph # (Auto) [place] # (Auto) Seg Neutrophils % Seg Neuts % (Manual) Lymphocytes % (Manual) Nucleated RBC % Seg Neutrophils # Seg Neutrophils # Man Monocytes # (Manual) PT INR APTT D-Dimer Heparin Anti-Xa Level 0.29 L ABG pH ABG pO2 ABG HCO3 ABG O2 Saturation ABG Base Excess ABG Hemoglobin Oxyhemoglobin Sodium Potassium Chloride Carbon Dioxide BUN Creatinine Glucose POC Glucose 178 H 221 H Hemoglobin A1c Lactic Acid Calcium Phosphorus Magnesium Ferritin AST ALT Alkaline Phosphatase Lactate Dehydrogenase Troponin T C-Reactive Protein Total Protein Albumin LDL Cholesterol Direct Urine Creatinine Urine Total Protein Salicylates Acetaminophen Crossmatch 11/04/21 11/04/21 11/04/21 05:09 09:40 09:40 WBC 16.8 H RBC Hgb Hct MCH 27 L RDW 16.5 H Plt Count Lymph % (Auto) [place] % (Auto) Lymph # (Auto) [place] # (Auto) Seg Neutrophils % Seg Neuts % (Manual) Lymphocytes % (Manual) Nucleated RBC % Seg Neutrophils # Seg Neutrophils # Man Monocytes # (Manual) PT INR APTT D-Dimer Heparin Anti-Xa Level ABG pH ABG pO2 ABG HCO3 ABG O2 Saturation ABG Base Excess ABG Hemoglobin Oxyhemoglobin Sodium Potassium 5.9 H Chloride 108.5 H Carbon Dioxide BUN 54 H Creatinine 1.8 H Glucose 198 H POC Glucose 182 H Hemoglobin A1c Lactic Acid Calcium Phosphorus Magnesium 3.00 H Ferritin AST ALT Alkaline Phosphatase Lactate Dehydrogenase Troponin T C-Reactive Protein Total Protein Albumin LDL Cholesterol Direct Urine Creatinine Urine Total Protein Salicylates Acetaminophen Crossmatch 11/04/21 11/04/21 11/04/21 12:13 13:34 14:05 WBC RBC Hgb Hct MCH RDW Plt Count Lymph % (Auto) [place] % (Auto) Lymph # (Auto) [place] # (Auto) Seg Neutrophils % Seg Neuts % (Manual) Lymphocytes % (Manual) Nucleated RBC % Seg Neutrophils # Seg Neutrophils # Man Monocytes # (Manual) PT INR APTT D-Dimer Heparin Anti-Xa Level ABG pH 7.223 L ABG pO2 71.3 L ABG HCO3 ABG O2 Saturation 92.8 L ABG Base Excess ABG Hemoglobin 8.2 L Oxyhemoglobin 91.0 L Sodium Potassium Chloride Carbon Dioxide BUN Creatinine Glucose POC Glucose 184 H Hemoglobin A1c Lactic Acid Calcium Phosphorus Magnesium Ferritin AST ALT Alkaline Phosphatase Lactate Dehydrogenase Troponin T C-Reactive Protein Total Protein Albumin LDL Cholesterol Direct Urine Creatinine 184.6 H Urine Total Protein Salicylates Acetaminophen Crossmatch 11/04/21 11/04/21 11/05/21 18:02 Unknown 00:07 WBC RBC Hgb Hct MCH RDW Plt Count Lymph % (Auto) [place] % (Auto) Lymph # (Auto) [place] # (Auto) Seg Neutrophils % Seg Neuts % (Manual) Lymphocytes % (Manual) Nucleated RBC % Seg Neutrophils # Seg Neutrophils # Man Monocytes # (Manual) PT INR APTT D-Dimer Heparin Anti-Xa Level ABG pH ABG pO2 ABG HCO3 ABG O2 Saturation ABG Base Excess ABG Hemoglobin Oxyhemoglobin Sodium Potassium Chloride Carbon Dioxide BUN Creatinine Glucose POC Glucose 262 H 259 H Hemoglobin A1c Lactic Acid Calcium Phosphorus Magnesium Ferritin AST ALT Alkaline Phosphatase Lactate Dehydrogenase Troponin T C-Reactive Protein Total Protein Albumin LDL Cholesterol Direct Urine Creatinine 190.9 H Urine Total Protein 172 H Salicylates Acetaminophen Crossmatch 11/05/21 11/05/21 11/05/21 04:20 04:20 05:30 WBC 17.9 H RBC 3.64 L Hgb 9.7 L Hct MCH 27 L RDW 16.4 H Plt Count Lymph % (Auto) [place] % (Auto) Lymph # (Auto) [place] # (Auto) Seg Neutrophils % Seg Neuts % (Manual) Lymphocytes % (Manual) Nucleated RBC % Seg Neutrophils # Seg Neutrophils # Man Monocytes # (Manual) PT INR APTT D-Dimer Heparin Anti-Xa Level ABG pH ABG pO2 ABG HCO3 ABG O2 Saturation ABG Base Excess ABG Hemoglobin Oxyhemoglobin Sodium Potassium 5.6 H Chloride 108.4 H Carbon Dioxide BUN 71 H Creatinine 1.9 H Glucose 270 H POC Glucose 283 H Hemoglobin A1c Lactic Acid Calcium Phosphorus Magnesium Ferritin AST ALT Alkaline Phosphatase Lactate Dehydrogenase Troponin T C-Reactive Protein Total Protein Albumin LDL Cholesterol Direct Urine Creatinine Urine Total Protein Salicylates Acetaminophen Crossmatch 11/05/21 11/05/21 11/05/21 10:05 12:10 15:29 WBC RBC Hgb Hct MCH RDW Plt Count Lymph % (Auto) [place] % (Auto) Lymph # (Auto) [place] # (Auto) Seg Neutrophils % Seg Neuts % (Manual) Lymphocytes % (Manual) Nucleated RBC % Seg Neutrophils # Seg Neutrophils # Man Monocytes # (Manual) PT INR APTT D-Dimer Heparin Anti-Xa Level ABG pH 7.248 L ABG pO2 73.7 L ABG HCO3 26.2 H ABG O2 Saturation 93.1 L ABG Base Excess ABG Hemoglobin 8.9 L Oxyhemoglobin 91.4 L Sodium Potassium Chloride Carbon Dioxide BUN Creatinine Glucose POC Glucose 225 H 199 H Hemoglobin A1c Lactic Acid Calcium Phosphorus Magnesium Ferritin AST ALT Alkaline Phosphatase Lactate Dehydrogenase Troponin T C-Reactive Protein Total Protein Albumin LDL Cholesterol Direct Urine Creatinine Urine Total Protein Salicylates Acetaminophen Crossmatch 11/05/21 11/05/21 11/05/21 15:51 17:32 17:40 WBC RBC Hgb Hct MCH RDW Plt Count Lymph % (Auto) [place] % (Auto) Lymph # (Auto) [place] # (Auto) Seg Neutrophils % Seg Neuts % (Manual) Lymphocytes % (Manual) Nucleated RBC % Seg Neutrophils # Seg Neutrophils # Man Monocytes # (Manual) PT INR APTT D-Dimer Heparin Anti-Xa Level ABG pH ABG pO2 ABG HCO3 ABG O2 Saturation ABG Base Excess ABG Hemoglobin Oxyhemoglobin Sodium Potassium 5.2 H Chloride 107.8 H Carbon Dioxide BUN 79 H Creatinine 1.9 H Glucose 204 H POC Glucose 278 H 197 H Hemoglobin A1c Lactic Acid Calcium Phosphorus Magnesium Ferritin AST ALT Alkaline Phosphatase Lactate Dehydrogenase Troponin T C-Reactive Protein Total Protein Albumin LDL Cholesterol Direct Urine Creatinine Urine Total Protein Salicylates Acetaminophen Crossmatch 11/05/21 11/05/21 11/05/21 21:25 22:22 23:43 WBC RBC Hgb Hct MCH RDW Plt Count Lymph % (Auto) [place] % (Auto) Lymph # (Auto) [place] # (Auto) Seg Neutrophils % Seg Neuts % (Manual) Lymphocytes % (Manual) Nucleated RBC % Seg Neutrophils # Seg Neutrophils # Man Monocytes # (Manual) PT INR APTT D-Dimer Heparin Anti-Xa Level ABG pH ABG pO2 ABG HCO3 ABG O2 Saturation ABG Base Excess ABG Hemoglobin Oxyhemoglobin Sodium Potassium 5.3 H Chloride 109.2 H Carbon Dioxide BUN 81 H Creatinine 2.0 H Glucose 195 H POC Glucose 180 H 203 H Hemoglobin A1c Lactic Acid Calcium Phosphorus Magnesium Ferritin AST ALT Alkaline Phosphatase Lactate Dehydrogenase Troponin T C-Reactive Protein Total Protein Albumin LDL Cholesterol Direct Urine Creatinine Urine Total Protein Salicylates Acetaminophen Crossmatch 11/05/21 11/06/21 11/06/21 Unknown 02:35 05:09 WBC RBC Hgb Hct MCH RDW Plt Count Lymph % (Auto) [place] % (Auto) Lymph # (Auto) [place] # (Auto) Seg Neutrophils % Seg Neuts % (Manual) Lymphocytes % (Manual) Nucleated RBC % Seg Neutrophils # Seg Neutrophils # Man Monocytes # (Manual) PT INR APTT D-Dimer Heparin Anti-Xa Level ABG pH ABG pO2 ABG HCO3 ABG O2 Saturation ABG Base Excess ABG Hemoglobin Oxyhemoglobin Sodium 146 H Potassium 6.0 H Chloride 108.1 H 107.1 H Carbon Dioxide 21 L BUN 80 H 84 H Creatinine 2.0 H 2.0 H Glucose 238 H 235 H POC Glucose 215 H Hemoglobin A1c Lactic Acid Calcium Phosphorus Magnesium 2.80 H Ferritin AST ALT 77 H Alkaline Phosphatase Lactate Dehydrogenase Troponin T C-Reactive Protein Total Protein Albumin 3.0 L LDL Cholesterol Direct Urine Creatinine Urine Total Protein Salicylates Acetaminophen Crossmatch 11/06/21 11/06/21 11/06/21 05:40 08:07 08:07 WBC RBC Hgb Hct MCH RDW Plt Count Lymph % (Auto) [place] % (Auto) Lymph # (Auto) [place] # (Auto) Seg Neutrophils % Seg Neuts % (Manual) Lymphocytes % (Manual) Nucleated RBC % Seg Neutrophils # Seg Neutrophils # Man Monocytes # (Manual) PT INR APTT D-Dimer Heparin Anti-Xa Level 1.24 H ABG pH 7.311 L ABG pO2 72.8 L ABG HCO3 29.7 H ABG O2 Saturation 94.1 L ABG Base Excess ABG Hemoglobin 11.4 L Oxyhemoglobin 92.3 L Sodium Potassium 5.2 H Chloride Carbon Dioxide BUN 85 H Creatinine 2.3 H Glucose 236 H POC Glucose Hemoglobin A1c Lactic Acid Calcium Phosphorus Magnesium Ferritin AST ALT Alkaline Phosphatase Lactate Dehydrogenase Troponin T C-Reactive Protein Total Protein Albumin LDL Cholesterol Direct Urine Creatinine Urine Total Protein Salicylates Acetaminophen Crossmatch 11/06/21 11/06/21 11/06/21 12:14 12:57 14:28 WBC RBC Hgb Hct MCH RDW Plt Count Lymph % (Auto) [place] % (Auto) Lymph # (Auto) [place] # (Auto) Seg Neutrophils % Seg Neuts % (Manual) Lymphocytes % (Manual) Nucleated RBC % Seg Neutrophils # Seg Neutrophils # Man Monocytes # (Manual) PT INR APTT D-Dimer Heparin Anti-Xa Level ABG pH 7.282 L ABG pO2 72.6 L ABG HCO3 30.8 H ABG O2 Saturation 93.7 L ABG Base Excess 3.2 H ABG Hemoglobin 8.6 L Oxyhemoglobin 91.8 L Sodium Potassium Chloride Carbon Dioxide BUN 91 H Creatinine 2.6 H Glucose 259 H POC Glucose 225 H Hemoglobin A1c Lactic Acid Calcium Phosphorus Magnesium Ferritin AST ALT Alkaline Phosphatase Lactate Dehydrogenase Troponin T C-Reactive Protein Total Protein Albumin LDL Cholesterol Direct Urine Creatinine Urine Total Protein Salicylates Acetaminophen Crossmatch 11/06/21 11/06/21 11/06/21 17:28 19:20 21:30 WBC RBC Hgb Hct MCH RDW Plt Count Lymph % (Auto) [place] % (Auto) Lymph # (Auto) [place] # (Auto) Seg Neutrophils % Seg Neuts % (Manual) Lymphocytes % (Manual) Nucleated RBC % Seg Neutrophils # Seg Neutrophils # Man Monocytes # (Manual) PT INR APTT D-Dimer Heparin Anti-Xa Level 0.73 H ABG pH ABG pO2 ABG HCO3 ABG O2 Saturation ABG Base Excess ABG Hemoglobin Oxyhemoglobin Sodium Potassium Chloride Carbon Dioxide BUN 95 H Creatinine 2.9 H Glucose 233 H POC Glucose 206 H Hemoglobin A1c Lactic Acid Calcium Phosphorus Magnesium Ferritin AST ALT Alkaline Phosphatase Lactate Dehydrogenase Troponin T C-Reactive Protein Total Protein Albumin LDL Cholesterol Direct Urine Creatinine Urine Total Protein Salicylates Acetaminophen Crossmatch 11/06/21 11/07/21 11/07/21 22:56 05:06 06:30 WBC RBC Hgb Hct MCH RDW Plt Count Lymph % (Auto) [place] % (Auto) Lymph # (Auto) [place] # (Auto) Seg Neutrophils % Seg Neuts % (Manual) Lymphocytes % (Manual) Nucleated RBC % Seg Neutrophils # Seg Neutrophils # Man Monocytes # (Manual) PT INR APTT D-Dimer Heparin Anti-Xa Level ABG pH ABG pO2 ABG HCO3 ABG O2 Saturation ABG Base Excess ABG Hemoglobin Oxyhemoglobin Sodium 146 H Potassium Chloride Carbon Dioxide BUN 98 H Creatinine 2.8 H Glucose 202 H POC Glucose 215 H 172 H Hemoglobin A1c Lactic Acid Calcium Phosphorus 4.90 H D Magnesium 2.90 H Ferritin AST ALT Alkaline Phosphatase Lactate Dehydrogenase Troponin T C-Reactive Protein Total Protein Albumin LDL Cholesterol Direct Urine Creatinine Urine Total Protein Salicylates Acetaminophen Crossmatch 11/07/21 11/07/21 11/07/21 06:30 11:26 12:15 WBC 16.0 H RBC 3.06 L Hgb 8.2 L Hct 26.1 L MCH 27 L RDW 16.2 H Plt Count Lymph % (Auto) [place] % (Auto) Lymph # (Auto) [place] # (Auto) Seg Neutrophils % Seg Neuts % (Manual) 77.0 H Lymphocytes % (Manual) 11.0 L Nucleated RBC % 2.0 H Seg Neutrophils # Seg Neutrophils # Man 12.3 H Monocytes # (Manual) PT INR APTT D-Dimer Heparin Anti-Xa Level ABG pH 7.298 L ABG pO2 73.0 L ABG HCO3 33.3 H ABG O2 Saturation 94.4 L ABG Base Excess 5.8 H ABG Hemoglobin 8.2 L Oxyhemoglobin 92.7 L Sodium Potassium Chloride Carbon Dioxide BUN Creatinine Glucose POC Glucose 179 H Hemoglobin A1c Lactic Acid Calcium Phosphorus Magnesium Ferritin AST ALT Alkaline Phosphatase Lactate Dehydrogenase Troponin T C-Reactive Protein Total Protein Albumin LDL Cholesterol Direct Urine Creatinine Urine Total Protein Salicylates Acetaminophen Crossmatch 11/07/21 11/07/21 11/07/21 17:57 22:16 23:49 WBC RBC Hgb Hct MCH RDW Plt Count Lymph % (Auto) [place] % (Auto) Lymph # (Auto) [place] # (Auto) Seg Neutrophils % Seg Neuts % (Manual) Lymphocytes % (Manual) Nucleated RBC % Seg Neutrophils # Seg Neutrophils # Man Monocytes # (Manual) PT INR APTT D-Dimer Heparin Anti-Xa Level ABG pH ABG pO2 ABG HCO3 ABG O2 Saturation ABG Base Excess ABG Hemoglobin Oxyhemoglobin Sodium Potassium Chloride Carbon Dioxide BUN Creatinine Glucose POC Glucose 166 H 223 H 190 H Hemoglobin A1c Lactic Acid Calcium Phosphorus Magnesium Ferritin AST ALT Alkaline Phosphatase Lactate Dehydrogenase Troponin T C-Reactive Protein Total Protein Albumin LDL Cholesterol Direct Urine Creatinine Urine Total Protein Salicylates Acetaminophen Crossmatch 11/08/21 11/08/21 11/08/21 04:20 04:20 06:16 WBC 22.1 H RBC 3.01 L Hgb 8.1 L Hct 25.6 L MCH 27 L RDW 15.4 H Plt Count Lymph % (Auto) [place] % (Auto) Lymph # (Auto) [place] # (Auto) Seg Neutrophils % Seg Neuts % (Manual) Lymphocytes % (Manual) Nucleated RBC % Seg Neutrophils # Seg Neutrophils # Man Monocytes # (Manual) PT INR APTT D-Dimer Heparin Anti-Xa Level ABG pH ABG pO2 ABG HCO3 ABG O2 Saturation ABG Base Excess ABG Hemoglobin Oxyhemoglobin Sodium 151 H Potassium 3.1 L D Chloride 107.3 H Carbon Dioxide 31 H BUN 82 H Creatinine 1.8 H Glucose 232 H POC Glucose 198 H Hemoglobin A1c Lactic Acid Calcium 8.1 L Phosphorus Magnesium Ferritin AST ALT Alkaline Phosphatase Lactate Dehydrogenase Troponin T C-Reactive Protein Total Protein Albumin LDL Cholesterol Direct Urine Creatinine Urine Total Protein Salicylates Acetaminophen Crossmatch 11/08/21 11/08/21 11/08/21 11:38 12:00 18:29 WBC RBC Hgb Hct MCH RDW Plt Count Lymph % (Auto) [place] % (Auto) Lymph # (Auto) [place] # (Auto) Seg Neutrophils % Seg Neuts % (Manual) Lymphocytes % (Manual) Nucleated RBC % Seg Neutrophils # Seg Neutrophils # Man Monocytes # (Manual) PT INR APTT D-Dimer Heparin Anti-Xa Level ABG pH ABG pO2 ABG HCO3 ABG O2 Saturation ABG Base Excess ABG Hemoglobin Oxyhemoglobin Sodium Potassium 3.0 L Chloride Carbon Dioxide BUN Creatinine Glucose POC Glucose 190 H 211 H Hemoglobin A1c Lactic Acid Calcium Phosphorus Magnesium Ferritin AST ALT Alkaline Phosphatase Lactate Dehydrogenase Troponin T C-Reactive Protein Total Protein Albumin LDL Cholesterol Direct Urine Creatinine Urine Total Protein Salicylates Acetaminophen Crossmatch 11/08/21 11/08/21 11/09/21 21:34 21:40 00:36 WBC RBC Hgb Hct MCH RDW Plt Count Lymph % (Auto) [place] % (Auto) Lymph # (Auto) [place] # (Auto) Seg Neutrophils % Seg Neuts % (Manual) Lymphocytes % (Manual) Nucleated RBC % Seg Neutrophils # Seg Neutrophils # Man Monocytes # (Manual) PT INR APTT D-Dimer Heparin Anti-Xa Level ABG pH ABG pO2 ABG HCO3 ABG O2 Saturation ABG Base Excess ABG Hemoglobin Oxyhemoglobin Sodium 148 H Potassium 2.8 L* Chloride Carbon Dioxide 31 H BUN 68 H Creatinine 1.5 H Glucose 191 H POC Glucose 194 H 140 H Hemoglobin A1c Lactic Acid Calcium 8.2 L Phosphorus Magnesium Ferritin AST ALT Alkaline Phosphatase Lactate Dehydrogenase Troponin T C-Reactive Protein Total Protein Albumin LDL Cholesterol Direct Urine Creatinine Urine Total Protein Salicylates Acetaminophen Crossmatch 02/11/09/21 11/09/21 04:51 04:51 04:51 WBC 27.6 H RBC 3.18 L Hgb 8.4 L Hct 26.6 L MCH 27 L RDW 15.3 H Plt Count Lymph % (Auto) [place] % (Auto) Lymph # (Auto) [place] # (Auto) Seg Neutrophils % Seg Neuts % (Manual) Lymphocytes % (Manual) Nucleated RBC % Seg Neutrophils # Seg Neutrophils # Man Monocytes # (Manual) PT INR APTT D-Dimer Heparin Anti-Xa Level 0.18 L ABG pH ABG pO2 ABG HCO3 ABG O2 Saturation ABG Base Excess ABG Hemoglobin Oxyhemoglobin Sodium 148 H Potassium 2.7 L* Chloride Carbon Dioxide BUN 59 H Creatinine 1.4 H Glucose 143 H POC Glucose Hemoglobin A1c Lactic Acid Calcium 8.3 L Phosphorus Magnesium Ferritin AST ALT Alkaline Phosphatase Lactate Dehydrogenase Troponin T C-Reactive Protein Total Protein Albumin LDL Cholesterol Direct Urine Creatinine Urine Total Protein Salicylates Acetaminophen Crossmatch 11/09/21 11/09/21 11/09/21 05:52 08:45 11:00 WBC RBC Hgb Hct MCH RDW Plt Count Lymph % (Auto) [place] % (Auto) Lymph # (Auto) [place] # (Auto) Seg Neutrophils % Seg Neuts % (Manual) Lymphocytes % (Manual) Nucleated RBC % Seg Neutrophils # Seg Neutrophils # Man Monocytes # (Manual) PT INR APTT D-Dimer Heparin Anti-Xa Level ABG pH ABG pO2 73.2 L ABG HCO3 33.8 H ABG O2 Saturation ABG Base Excess 8.7 H ABG Hemoglobin 8.5 L Oxyhemoglobin 94.1 L Sodium Potassium Chloride Carbon Dioxide BUN Creatinine Glucose POC Glucose 166 H 136 H Hemoglobin A1c Lactic Acid Calcium Phosphorus Magnesium Ferritin AST ALT Alkaline Phosphatase Lactate Dehydrogenase Troponin T C-Reactive Protein Total Protein Albumin LDL Cholesterol Direct Urine Creatinine Urine Total Protein Salicylates Acetaminophen Crossmatch 11/09/21 11/09/21 11/09/21 15:48 16:10 20:31 WBC RBC Hgb Hct MCH RDW Plt Count Lymph % (Auto) [place] % (Auto) Lymph # (Auto) [place] # (Auto) Seg Neutrophils % Seg Neuts % (Manual) Lymphocytes % (Manual) Nucleated RBC % Seg Neutrophils # Seg Neutrophils # Man Monocytes # (Manual) PT INR APTT D-Dimer Heparin Anti-Xa Level ABG pH ABG pO2 ABG HCO3 ABG O2 Saturation ABG Base Excess ABG Hemoglobin Oxyhemoglobin Sodium Potassium 2.8 L* Chloride Carbon Dioxide 31 H BUN 53 H Creatinine 1.3 H Glucose 208 H POC Glucose 203 H 166 H Hemoglobin A1c Lactic Acid Calcium 7.9 L Phosphorus Magnesium Ferritin AST ALT Alkaline Phosphatase Lactate Dehydrogenase Troponin T C-Reactive Protein Total Protein Albumin LDL Cholesterol Direct Urine Creatinine Urine Total Protein Salicylates Acetaminophen Crossmatch 11/09/21 11/09/21 11/09/21 21:30 23:16 Unknown WBC RBC Hgb Hct MCH RDW Plt Count Lymph % (Auto) [place] % (Auto) Lymph # (Auto) [place] # (Auto) Seg Neutrophils % Seg Neuts % (Manual) Lymphocytes % (Manual) Nucleated RBC % Seg Neutrophils # Seg Neutrophils # Man Monocytes # (Manual) PT INR APTT D-Dimer Heparin Anti-Xa Level 0.24 L ABG pH ABG pO2 ABG HCO3 ABG O2 Saturation ABG Base Excess ABG Hemoglobin Oxyhemoglobin Sodium Potassium Chloride Carbon Dioxide BUN 52 H Creatinine 1.4 H Glucose 185 H POC Glucose 172 H Hemoglobin A1c Lactic Acid Calcium 7.8 L Phosphorus Magnesium Ferritin AST ALT Alkaline Phosphatase Lactate Dehydrogenase Troponin T C-Reactive Protein Total Protein Albumin LDL Cholesterol Direct Urine Creatinine Urine Total Protein Salicylates Acetaminophen Crossmatch 11/10/21 11/10/21 11/10/21 02:00 04:17 04:17 WBC 24.5 H RBC 2.75 L Hgb 7.5 L Hct 22.9 L MCH 27 L RDW Plt Count Lymph % (Auto) [place] % (Auto) Lymph # (Auto) [place] # (Auto) Seg Neutrophils % Seg Neuts % (Manual) Lymphocytes % (Manual) Nucleated RBC % Seg Neutrophils # Seg Neutrophils # Man Monocytes # (Manual) PT INR APTT D-Dimer Heparin Anti-Xa Level 0.26 L ABG pH ABG pO2 ABG HCO3 ABG O2 Saturation ABG Base Excess ABG Hemoglobin Oxyhemoglobin Sodium Potassium 2.9 L* Chloride Carbon Dioxide 35 H BUN 48 H Creatinine Glucose 212 H POC Glucose Hemoglobin A1c Lactic Acid Calcium 8.1 L Phosphorus Magnesium Ferritin AST ALT Alkaline Phosphatase Lactate Dehydrogenase Troponin T C-Reactive Protein Total Protein Albumin LDL Cholesterol Direct Urine Creatinine Urine Total Protein Salicylates Acetaminophen Crossmatch 11/10/21 11/10/21 11/10/21 05:01 08:39 11:03 WBC RBC Hgb Hct MCH RDW Plt Count Lymph % (Auto) [place] % (Auto) Lymph # (Auto) [place] # (Auto) Seg Neutrophils % Seg Neuts % (Manual) Lymphocytes % (Manual) Nucleated RBC % Seg Neutrophils # Seg Neutrophils # Man Monocytes # (Manual) PT INR APTT D-Dimer Heparin Anti-Xa Level 0.12 L ABG pH ABG pO2 ABG HCO3 ABG O2 Saturation ABG Base Excess ABG Hemoglobin Oxyhemoglobin Sodium Potassium Chloride Carbon Dioxide BUN Creatinine Glucose POC Glucose 203 H 152 H Hemoglobin A1c Lactic Acid Calcium Phosphorus Magnesium Ferritin AST ALT Alkaline Phosphatase Lactate Dehydrogenase Troponin T C-Reactive Protein Total Protein Albumin LDL Cholesterol Direct Urine Creatinine Urine Total Protein Salicylates Acetaminophen Crossmatch 11/10/21 11/10/21 11/10/21 12:45 15:43 21:05 WBC RBC Hgb Hct MCH RDW Plt Count Lymph % (Auto) [place] % (Auto) Lymph # (Auto) [place] # (Auto) Seg Neutrophils % Seg Neuts % (Manual) Lymphocytes % (Manual) Nucleated RBC % Seg Neutrophils # Seg Neutrophils # Man Monocytes # (Manual) PT INR APTT D-Dimer Heparin Anti-Xa Level ABG pH ABG pO2 ABG HCO3 ABG O2 Saturation ABG Base Excess ABG Hemoglobin Oxyhemoglobin Sodium 146 H Potassium 3.3 L Chloride Carbon Dioxide 31 H BUN 43 H Creatinine Glucose 155 H POC Glucose 139 H 139 H Hemoglobin A1c Lactic Acid Calcium 8.3 L Phosphorus Magnesium Ferritin AST ALT Alkaline Phosphatase Lactate Dehydrogenase Troponin T C-Reactive Protein Total Protein Albumin LDL Cholesterol Direct Urine Creatinine Urine Total Protein Salicylates Acetaminophen Crossmatch 11/10/21 11/11/21 11/11/21 23:25 03:49 03:49 WBC 22.1 H RBC 2.69 L Hgb 7.2 L Hct 22.7 L MCH 27 L RDW Plt Count Lymph % (Auto) [place] % (Auto) Lymph # (Auto) [place] # (Auto) Seg Neutrophils % Seg Neuts % (Manual) Lymphocytes % (Manual) Nucleated RBC % Seg Neutrophils # Seg Neutrophils # Man Monocytes # (Manual) PT INR APTT D-Dimer Heparin Anti-Xa Level ABG pH ABG pO2 ABG HCO3 ABG O2 Saturation ABG Base Excess ABG Hemoglobin Oxyhemoglobin Sodium Potassium Chloride Carbon Dioxide 32 H BUN 44 H Creatinine 1.3 H Glucose 173 H POC Glucose 146 H Hemoglobin A1c Lactic Acid Calcium Phosphorus Magnesium Ferritin AST ALT Alkaline Phosphatase Lactate Dehydrogenase Troponin T C-Reactive Protein Total Protein Albumin LDL Cholesterol Direct Urine Creatinine Urine Total Protein Salicylates Acetaminophen Crossmatch 11/11/21 11/11/21 11/11/21 05:03 10:50 11:32 WBC RBC Hgb Hct MCH RDW Plt Count Lymph % (Auto) [place] % (Auto) Lymph # (Auto) [place] # (Auto) Seg Neutrophils % Seg Neuts % (Manual) Lymphocytes % (Manual) Nucleated RBC % Seg Neutrophils # Seg Neutrophils # Man Monocytes # (Manual) PT INR APTT D-Dimer Heparin Anti-Xa Level ABG pH ABG pO2 ABG HCO3 ABG O2 Saturation ABG Base Excess ABG Hemoglobin Oxyhemoglobin Sodium Potassium Chloride Carbon Dioxide BUN Creatinine Glucose POC Glucose 152 H 129 H 133 H Hemoglobin A1c Lactic Acid Calcium Phosphorus Magnesium Ferritin AST ALT Alkaline Phosphatase Lactate Dehydrogenase Troponin T C-Reactive Protein Total Protein Albumin LDL Cholesterol Direct Urine Creatinine Urine Total Protein Salicylates Acetaminophen Crossmatch 11/11/21 11/11/21 11/11/21 13:53 16:31 17:13 WBC RBC Hgb Hct MCH RDW Plt Count Lymph % (Auto) [place] % (Auto) Lymph # (Auto) [place] # (Auto) Seg Neutrophils % Seg Neuts % (Manual) Lymphocytes % (Manual) Nucleated RBC % Seg Neutrophils # Seg Neutrophils # Man Monocytes # (Manual) PT INR APTT D-Dimer Heparin Anti-Xa Level ABG pH 7.475 H ABG pO2 64.1 L ABG HCO3 32.4 H ABG O2 Saturation ABG Base Excess 8.0 H ABG Hemoglobin 7.6 L Oxyhemoglobin 94.0 L Sodium Potassium Chloride Carbon Dioxide BUN Creatinine Glucose POC Glucose 116 H 125 H Hemoglobin A1c Lactic Acid Calcium Phosphorus Magnesium Ferritin AST ALT Alkaline Phosphatase Lactate Dehydrogenase Troponin T C-Reactive Protein Total Protein Albumin LDL Cholesterol Direct Urine Creatinine Urine Total Protein Salicylates Acetaminophen Crossmatch 11/11/21 11/11/21 11/12/21 20:40 23:35 03:30 WBC 17.7 H RBC 2.37 L Hgb 6.3 L Hct 20.0 L MCH 27 L RDW 15.5 H Plt Count Lymph % (Auto) [place] % (Auto) Lymph # (Auto) [place] # (Auto) Seg Neutrophils % Seg Neuts % (Manual) Lymphocytes % (Manual) Nucleated RBC % Seg Neutrophils # Seg Neutrophils # Man Monocytes # (Manual) PT INR APTT D-Dimer Heparin Anti-Xa Level 0.26 L ABG pH ABG pO2 ABG HCO3 ABG O2 Saturation ABG Base Excess ABG Hemoglobin Oxyhemoglobin Sodium Potassium Chloride Carbon Dioxide BUN Creatinine Glucose POC Glucose 118 H Hemoglobin A1c Lactic Acid Calcium Phosphorus Magnesium Ferritin AST ALT Alkaline Phosphatase Lactate Dehydrogenase Troponin T C-Reactive Protein Total Protein Albumin LDL Cholesterol Direct Urine Creatinine Urine Total Protein Salicylates Acetaminophen Crossmatch 11/12/21 11/12/21 11/12/21 03:30 04:15 11:53 WBC RBC Hgb Hct MCH RDW Plt Count Lymph % (Auto) [place] % (Auto) Lymph # (Auto) [place] # (Auto) Seg Neutrophils % Seg Neuts % (Manual) Lymphocytes % (Manual) Nucleated RBC % Seg Neutrophils # Seg Neutrophils # Man Monocytes # (Manual) PT INR APTT D-Dimer Heparin Anti-Xa Level ABG pH ABG pO2 ABG HCO3 ABG O2 Saturation ABG Base Excess ABG Hemoglobin Oxyhemoglobin Sodium Potassium Chloride Carbon Dioxide 33 H BUN 38 H Creatinine 1.3 H Glucose 102 H POC Glucose 62 L Hemoglobin A1c Lactic Acid Calcium 8.2 L Phosphorus Magnesium Ferritin AST ALT Alkaline Phosphatase Lactate Dehydrogenase Troponin T C-Reactive Protein Total Protein Albumin LDL Cholesterol Direct Urine Creatinine Urine Total Protein Salicylates Acetaminophen Crossmatch See Detail 11/12/21 11/12/21 11/12/21 17:20 19:14 23:11 WBC RBC Hgb 6.2 L Hct 19.5 L* MCH RDW Plt Count Lymph % (Auto) [place] % (Auto) Lymph # (Auto) [place] # (Auto) Seg Neutrophils % Seg Neuts % (Manual) Lymphocytes % (Manual) Nucleated RBC % Seg Neutrophils # Seg Neutrophils # Man Monocytes # (Manual) PT INR APTT D-Dimer Heparin Anti-Xa Level ABG pH ABG pO2 ABG HCO3 ABG O2 Saturation ABG Base Excess ABG Hemoglobin Oxyhemoglobin Sodium Potassium Chloride Carbon Dioxide BUN Creatinine Glucose POC Glucose 115 H 131 H Hemoglobin A1c Lactic Acid Calcium Phosphorus Magnesium Ferritin AST ALT Alkaline Phosphatase Lactate Dehydrogenase Troponin T C-Reactive Protein Total Protein Albumin LDL Cholesterol Direct Urine Creatinine Urine Total Protein Salicylates Acetaminophen Crossmatch 11/13/21 11/13/21 11/13/21 00:13 04:17 04:17 WBC 23.8 H RBC 2.84 L Hgb 7.4 L 7.8 L Hct 23.3 L 24.9 L MCH 27 L RDW 15.4 H Plt Count Lymph % (Auto) [place] % (Auto) Lymph # (Auto) [place] # (Auto) Seg Neutrophils % Seg Neuts % (Manual) Lymphocytes % (Manual) Nucleated RBC % Seg Neutrophils # Seg Neutrophils # Man Monocytes # (Manual) PT INR APTT D-Dimer Heparin Anti-Xa Level ABG pH ABG pO2 ABG HCO3 ABG O2 Saturation ABG Base Excess ABG Hemoglobin Oxyhemoglobin Sodium 146 H Potassium Chloride Carbon Dioxide BUN 44 H Creatinine 1.6 H Glucose 144 H POC Glucose Hemoglobin A1c Lactic Acid Calcium 7.9 L Phosphorus 5.10 H D Magnesium Ferritin AST ALT Alkaline Phosphatase Lactate Dehydrogenase Troponin T C-Reactive Protein Total Protein Albumin LDL Cholesterol Direct Urine Creatinine Urine Total Protein Salicylates Acetaminophen Crossmatch 11/13/21 11/13/21 11/13/21 05:52 10:54 15:57 WBC RBC Hgb Hct MCH RDW Plt Count Lymph % (Auto) [place] % (Auto) Lymph # (Auto) [place] # (Auto) Seg Neutrophils % Seg Neuts % (Manual) Lymphocytes % (Manual) Nucleated RBC % Seg Neutrophils # Seg Neutrophils # Man Monocytes # (Manual) PT INR APTT D-Dimer Heparin Anti-Xa Level ABG pH ABG pO2 ABG HCO3 ABG O2 Saturation ABG Base Excess ABG Hemoglobin Oxyhemoglobin Sodium Potassium Chloride Carbon Dioxide BUN Creatinine Glucose POC Glucose 123 H 147 H 207 H Hemoglobin A1c Lactic Acid Calcium Phosphorus Magnesium Ferritin AST ALT Alkaline Phosphatase Lactate Dehydrogenase Troponin T C-Reactive Protein Total Protein Albumin LDL Cholesterol Direct Urine Creatinine Urine Total Protein Salicylates Acetaminophen Crossmatch 11/13/21 11/13/21 11/14/21 16:01 23:18 04:55 WBC 23.9 H RBC 2.86 L Hgb 6.5 L 8.3 L Hct 20.3 L 24.5 L MCH RDW Plt Count Lymph % (Auto) [place] % (Auto) Lymph # (Auto) [place] # (Auto) Seg Neutrophils % Seg Neuts % (Manual) Lymphocytes % (Manual) Nucleated RBC % Seg Neutrophils # Seg Neutrophils # Man Monocytes # (Manual) PT INR APTT D-Dimer Heparin Anti-Xa Level ABG pH ABG pO2 ABG HCO3 ABG O2 Saturation ABG Base Excess ABG Hemoglobin Oxyhemoglobin Sodium Potassium Chloride Carbon Dioxide BUN Creatinine Glucose POC Glucose 209 H Hemoglobin A1c Lactic Acid Calcium Phosphorus Magnesium Ferritin AST ALT Alkaline Phosphatase Lactate Dehydrogenase Troponin T C-Reactive Protein Total Protein Albumin LDL Cholesterol Direct Urine Creatinine Urine Total Protein Salicylates Acetaminophen Crossmatch 11/14/21 11/14/21 11/14/21 04:55 05:09 11:35 WBC RBC Hgb Hct MCH RDW Plt Count Lymph % (Auto) [place] % (Auto) Lymph # (Auto) [place] # (Auto) Seg Neutrophils % Seg Neuts % (Manual) Lymphocytes % (Manual) Nucleated RBC % Seg Neutrophils # Seg Neutrophils # Man Monocytes # (Manual) PT INR APTT D-Dimer Heparin Anti-Xa Level ABG pH ABG pO2 ABG HCO3 ABG O2 Saturation ABG Base Excess ABG Hemoglobin Oxyhemoglobin Sodium 148 H Potassium Chloride 109.0 H Carbon Dioxide BUN 42 H Creatinine 1.6 H Glucose 184 H POC Glucose 169 H 154 H Hemoglobin A1c Lactic Acid Calcium 8.0 L Phosphorus Magnesium Ferritin AST ALT Alkaline Phosphatase Lactate Dehydrogenase Troponin T C-Reactive Protein Total Protein Albumin LDL Cholesterol Direct Urine Creatinine Urine Total Protein Salicylates Acetaminophen Crossmatch 11/14/21 11/14/21 11/15/21 16:57 23:11 04:36 WBC RBC Hgb Hct MCH RDW Plt Count Lymph % (Auto) [place] % (Auto) Lymph # (Auto) [place] # (Auto) Seg Neutrophils % Seg Neuts % (Manual) Lymphocytes % (Manual) Nucleated RBC % Seg Neutrophils # Seg Neutrophils # Man Monocytes # (Manual) PT INR APTT D-Dimer Heparin Anti-Xa Level ABG pH ABG pO2 ABG HCO3 ABG O2 Saturation ABG Base Excess ABG Hemoglobin Oxyhemoglobin Sodium 151 H Potassium Chloride 111.2 H Carbon Dioxide BUN 36 H Creatinine 1.3 H Glucose 136 H POC Glucose 124 H 118 H Hemoglobin A1c Lactic Acid Calcium 8.1 L Phosphorus Magnesium Ferritin AST ALT Alkaline Phosphatase Lactate Dehydrogenase Troponin T C-Reactive Protein Total Protein Albumin LDL Cholesterol Direct Urine Creatinine Urine Total Protein Salicylates Acetaminophen Crossmatch 11/15/21 11/15/21 11/16/21 11:18 21:49 00:15 WBC RBC Hgb Hct MCH RDW Plt Count Lymph % (Auto) [place] % (Auto) Lymph # (Auto) [place] # (Auto) Seg Neutrophils % Seg Neuts % (Manual) Lymphocytes % (Manual) Nucleated RBC % Seg Neutrophils # Seg Neutrophils # Man Monocytes # (Manual) PT INR APTT D-Dimer Heparin Anti-Xa Level ABG pH ABG pO2 ABG HCO3 ABG O2 Saturation ABG Base Excess ABG Hemoglobin Oxyhemoglobin Sodium Potassium Chloride Carbon Dioxide BUN Creatinine Glucose POC Glucose 154 H 154 H 146 H Hemoglobin A1c Lactic Acid Calcium Phosphorus Magnesium Ferritin AST ALT Alkaline Phosphatase Lactate Dehydrogenase Troponin T C-Reactive Protein Total Protein Albumin LDL Cholesterol Direct Urine Creatinine Urine Total Protein Salicylates Acetaminophen Crossmatch 11/16/21 11/16/21 11/16/21 05:11 05:11 05:37 WBC 18.2 H RBC 2.92 L Hgb 8.3 L Hct 26.1 L MCH RDW 15.8 H Plt Count Lymph % (Auto) 6.3 L [place] % (Auto) 10.2 H Lymph # (Auto) [place] # (Auto) 1.9 H Seg Neutrophils % 81.7 H Seg Neuts % (Manual) Lymphocytes % (Manual) Nucleated RBC % Seg Neutrophils # 14.9 H Seg Neutrophils # Man Monocytes # (Manual) PT INR APTT D-Dimer Heparin Anti-Xa Level ABG pH ABG pO2 ABG HCO3 ABG O2 Saturation ABG Base Excess ABG Hemoglobin Oxyhemoglobin Sodium 146 H Potassium Chloride 108.0 H Carbon Dioxide BUN 25 H Creatinine Glucose 123 H POC Glucose 109 H Hemoglobin A1c Lactic Acid Calcium 7.8 L Phosphorus Magnesium Ferritin AST ALT Alkaline Phosphatase Lactate Dehydrogenase Troponin T C-Reactive Protein Total Protein Albumin LDL Cholesterol Direct Urine Creatinine Urine Total Protein Salicylates Acetaminophen Crossmatch 11/16/21 11/16/21 11/17/21 11:22 23:55 04:33 WBC RBC Hgb Hct MCH RDW Plt Count Lymph % (Auto) [place] % (Auto) Lymph # (Auto) [place] # (Auto) Seg Neutrophils % Seg Neuts % (Manual) Lymphocytes % (Manual) Nucleated RBC % Seg Neutrophils # Seg Neutrophils # Man Monocytes # (Manual) PT INR APTT D-Dimer Heparin Anti-Xa Level ABG pH ABG pO2 ABG HCO3 ABG O2 Saturation ABG Base Excess ABG Hemoglobin Oxyhemoglobin Sodium Potassium Chloride Carbon Dioxide BUN 20 H Creatinine Glucose POC Glucose 136 H 113 H Hemoglobin A1c Lactic Acid Calcium 7.5 L Phosphorus Magnesium Ferritin AST ALT Alkaline Phosphatase Lactate Dehydrogenase Troponin T C-Reactive Protein Total Protein Albumin LDL Cholesterol Direct Urine Creatinine Urine Total Protein Salicylates Acetaminophen Crossmatch 02/11/18/21 11/18/21 23:22 04:53 04:53 WBC 13.0 H RBC 2.99 L Hgb 8.5 L Hct 26.4 L MCH RDW Plt Count Lymph % (Auto) 9.5 L [place] % (Auto) 9.8 H Lymph # (Auto) [place] # (Auto) 1.3 H Seg Neutrophils % 78.3 H Seg Neuts % (Manual) Lymphocytes % (Manual) Nucleated RBC % Seg Neutrophils # 10.2 H Seg Neutrophils # Man Monocytes # (Manual) PT INR APTT D-Dimer Heparin Anti-Xa Level ABG pH ABG pO2 ABG HCO3 ABG O2 Saturation ABG Base Excess ABG Hemoglobin Oxyhemoglobin Sodium Potassium Chloride Carbon Dioxide BUN 18 H Creatinine Glucose 106 H POC Glucose 112 H Hemoglobin A1c Lactic Acid Calcium 8.1 L Phosphorus Magnesium Ferritin AST ALT Alkaline Phosphatase Lactate Dehydrogenase Troponin T C-Reactive Protein Total Protein Albumin LDL Cholesterol Direct Urine Creatinine Urine Total Protein Salicylates Acetaminophen Crossmatch 11/18/21 11/18/21 11/19/21 11:35 17:42 14:38 WBC RBC Hgb Hct MCH RDW Plt Count Lymph % (Auto) [place] % (Auto) Lymph # (Auto) [place] # (Auto) Seg Neutrophils % Seg Neuts % (Manual) Lymphocytes % (Manual) Nucleated RBC % Seg Neutrophils # Seg Neutrophils # Man Monocytes # (Manual) PT INR APTT D-Dimer Heparin Anti-Xa Level ABG pH ABG pO2 ABG HCO3 ABG O2 Saturation ABG Base Excess ABG Hemoglobin Oxyhemoglobin Sodium Potassium Chloride 97.5 L Carbon Dioxide 31 H BUN Creatinine Glucose 146 H POC Glucose 143 H 132 H Hemoglobin A1c Lactic Acid Calcium Phosphorus Magnesium 1.60 L Ferritin AST ALT Alkaline Phosphatase Lactate Dehydrogenase Troponin T C-Reactive Protein Total Protein Albumin LDL Cholesterol Direct Urine Creatinine Urine Total Protein Salicylates Acetaminophen Crossmatch 11/19/21 11/19/21 11/20/21 16:24 23:58 07:42 WBC RBC 3.01 L Hgb 8.6 L Hct 26.7 L MCH RDW 15.4 H Plt Count Lymph % (Auto) [place] % (Auto) Lymph # (Auto) [place] # (Auto) Seg Neutrophils % Seg Neuts % (Manual) Lymphocytes % (Manual) Nucleated RBC % Seg Neutrophils # Seg Neutrophils # Man Monocytes # (Manual) PT INR APTT D-Dimer Heparin Anti-Xa Level ABG pH ABG pO2 ABG HCO3 ABG O2 Saturation ABG Base Excess ABG Hemoglobin Oxyhemoglobin Sodium Potassium Chloride Carbon Dioxide BUN Creatinine Glucose POC Glucose 129 H 125 H Hemoglobin A1c Lactic Acid Calcium Phosphorus Magnesium Ferritin AST ALT Alkaline Phosphatase Lactate Dehydrogenase Troponin T C-Reactive Protein Total Protein Albumin LDL Cholesterol Direct Urine Creatinine Urine Total Protein Salicylates Acetaminophen Crossmatch 11/20/21 11/20/21 11/20/21 07:42 11:25 22:59 WBC RBC Hgb Hct MCH RDW Plt Count Lymph % (Auto) [place] % (Auto) Lymph # (Auto) [place] # (Auto) Seg Neutrophils % Seg Neuts % (Manual) Lymphocytes % (Manual) Nucleated RBC % Seg Neutrophils # Seg Neutrophils # Man Monocytes # (Manual) PT INR APTT D-Dimer Heparin Anti-Xa Level ABG pH ABG pO2 ABG HCO3 ABG O2 Saturation ABG Base Excess ABG Hemoglobin Oxyhemoglobin Sodium Potassium Chloride Carbon Dioxide 31 H BUN Creatinine Glucose POC Glucose 116 H 113 H Hemoglobin A1c Lactic Acid Calcium Phosphorus Magnesium Ferritin AST ALT Alkaline Phosphatase Lactate Dehydrogenase Troponin T C-Reactive Protein Total Protein Albumin LDL Cholesterol Direct Urine Creatinine Urine Total Protein Salicylates Acetaminophen Crossmatch 11/21/21 11/22/21 11/22/21 10:50 05:10 16:12 WBC RBC Hgb Hct MCH RDW Plt Count Lymph % (Auto) [place] % (Auto) Lymph # (Auto) [place] # (Auto) Seg Neutrophils % Seg Neuts % (Manual) Lymphocytes % (Manual) Nucleated RBC % Seg Neutrophils # Seg Neutrophils # Man Monocytes # (Manual) PT INR APTT D-Dimer Heparin Anti-Xa Level ABG pH ABG pO2 ABG HCO3 ABG O2 Saturation ABG Base Excess ABG Hemoglobin Oxyhemoglobin Sodium Potassium Chloride Carbon Dioxide 32 H BUN Creatinine Glucose POC Glucose 156 H 110 H Hemoglobin A1c Lactic Acid Calcium 8.1 L Phosphorus Magnesium Ferritin AST ALT Alkaline Phosphatase Lactate Dehydrogenase Troponin T C-Reactive Protein Total Protein Albumin LDL Cholesterol Direct Urine Creatinine Urine Total Protein Salicylates Acetaminophen Crossmatch 11/23/21 11/23/21 11/23/21 07:18 07:18 11:45 WBC RBC 3.23 L Hgb 9.1 L Hct 28.5 L MCH RDW 15.6 H Plt Count Lymph % (Auto) [place] % (Auto) Lymph # (Auto) [place] # (Auto) Seg Neutrophils % Seg Neuts % (Manual) Lymphocytes % (Manual) Nucleated RBC % Seg Neutrophils # Seg Neutrophils # Man Monocytes # (Manual) PT INR APTT D-Dimer Heparin Anti-Xa Level ABG pH ABG pO2 ABG HCO3 ABG O2 Saturation ABG Base Excess ABG Hemoglobin Oxyhemoglobin Sodium Potassium 3.3 L Chloride 96.8 L Carbon Dioxide 32 H BUN Creatinine Glucose POC Glucose 140 H Hemoglobin A1c Lactic Acid Calcium Phosphorus Magnesium Ferritin AST ALT Alkaline Phosphatase Lactate Dehydrogenase Troponin T C-Reactive Protein Total Protein Albumin LDL Cholesterol Direct Urine Creatinine Urine Total Protein Salicylates Acetaminophen Crossmatch 11/23/21 11/23/21 11/24/21 16:40 23:45 07:19 WBC RBC 3.12 L Hgb 9.3 L Hct 27.2 L MCH RDW 16.0 H Plt Count Lymph % (Auto) 10.3 L [place] % (Auto) 10.0 H Lymph # (Auto) 1.1 L [place] # (Auto) 1.1 H Seg Neutrophils % 75.2 H Seg Neuts % (Manual) Lymphocytes % (Manual) Nucleated RBC % Seg Neutrophils # 7.9 H Seg Neutrophils # Man Monocytes # (Manual) PT INR APTT D-Dimer Heparin Anti-Xa Level ABG pH ABG pO2 ABG HCO3 ABG O2 Saturation ABG Base Excess ABG Hemoglobin Oxyhemoglobin Sodium Potassium Chloride Carbon Dioxide BUN Creatinine Glucose POC Glucose 140 H 138 H Hemoglobin A1c Lactic Acid Calcium Phosphorus Magnesium Ferritin AST ALT Alkaline Phosphatase Lactate Dehydrogenase Troponin T C-Reactive Protein Total Protein Albumin LDL Cholesterol Direct Urine Creatinine Urine Total Protein Salicylates Acetaminophen Crossmatch 11/24/21 11/24/21 11/24/21 07:19 11:49 15:54 WBC RBC Hgb Hct MCH RDW Plt Count Lymph % (Auto) [place] % (Auto) Lymph # (Auto) [place] # (Auto) Seg Neutrophils % Seg Neuts % (Manual) Lymphocytes % (Manual) Nucleated RBC % Seg Neutrophils # Seg Neutrophils # Man Monocytes # (Manual) PT INR APTT D-Dimer Heparin Anti-Xa Level ABG pH ABG pO2 ABG HCO3 ABG O2 Saturation ABG Base Excess ABG Hemoglobin Oxyhemoglobin Sodium Potassium 3.2 L Chloride 96.7 L Carbon Dioxide BUN Creatinine Glucose 125 H POC Glucose 118 H 106 H Hemoglobin A1c Lactic Acid Calcium Phosphorus Magnesium Ferritin AST ALT Alkaline Phosphatase Lactate Dehydrogenase Troponin T C-Reactive Protein Total Protein Albumin LDL Cholesterol Direct Urine Creatinine Urine Total Protein Salicylates Acetaminophen Crossmatch 11/25/21 11/25/21 11/25/21 11:49 15:41 20:51 WBC RBC Hgb Hct MCH RDW Plt Count Lymph % (Auto) [place] % (Auto) Lymph # (Auto) [place] # (Auto) Seg Neutrophils % Seg Neuts % (Manual) Lymphocytes % (Manual) Nucleated RBC % Seg Neutrophils # Seg Neutrophils # Man Monocytes # (Manual) PT INR APTT D-Dimer Heparin Anti-Xa Level ABG pH ABG pO2 ABG HCO3 ABG O2 Saturation ABG Base Excess ABG Hemoglobin Oxyhemoglobin Sodium Potassium Chloride Carbon Dioxide BUN Creatinine Glucose POC Glucose 119 H 110 H 109 H Hemoglobin A1c Lactic Acid Calcium Phosphorus Magnesium Ferritin AST ALT Alkaline Phosphatase Lactate Dehydrogenase Troponin T C-Reactive Protein Total Protein Albumin LDL Cholesterol Direct Urine Creatinine Urine Total Protein Salicylates Acetaminophen Crossmatch 11/26/21 11/26/21 11/26/21 07:33 11:20 17:03 WBC RBC Hgb Hct MCH RDW Plt Count Lymph % (Auto) [place] % (Auto) Lymph # (Auto) [place] # (Auto) Seg Neutrophils % Seg Neuts % (Manual) Lymphocytes % (Manual) Nucleated RBC % Seg Neutrophils # Seg Neutrophils # Man Monocytes # (Manual) PT INR APTT D-Dimer Heparin Anti-Xa Level ABG pH ABG pO2 ABG HCO3 ABG O2 Saturation ABG Base Excess ABG Hemoglobin Oxyhemoglobin Sodium Potassium Chloride Carbon Dioxide BUN Creatinine Glucose POC Glucose 158 H 162 H 144 H Hemoglobin A1c Lactic Acid Calcium Phosphorus Magnesium Ferritin AST ALT Alkaline Phosphatase Lactate Dehydrogenase Troponin T C-Reactive Protein Total Protein Albumin LDL Cholesterol Direct Urine Creatinine Urine Total Protein Salicylates Acetaminophen Crossmatch 11/26/21 11/27/21 11/27/21 21:51 07:44 12:20 WBC RBC Hgb Hct MCH RDW Plt Count Lymph % (Auto) [place] % (Auto) Lymph # (Auto) [place] # (Auto) Seg Neutrophils % Seg Neuts % (Manual) Lymphocytes % (Manual) Nucleated RBC % Seg Neutrophils # Seg Neutrophils # Man Monocytes # (Manual) PT INR APTT D-Dimer Heparin Anti-Xa Level ABG pH ABG pO2 ABG HCO3 ABG O2 Saturation ABG Base Excess ABG Hemoglobin Oxyhemoglobin Sodium Potassium Chloride Carbon Dioxide BUN Creatinine Glucose POC Glucose 132 H 129 H 128 H Hemoglobin A1c Lactic Acid Calcium Phosphorus Magnesium Ferritin AST ALT Alkaline Phosphatase Lactate Dehydrogenase Troponin T C-Reactive Protein Total Protein Albumin LDL Cholesterol Direct Urine Creatinine Urine Total Protein Salicylates Acetaminophen Crossmatch 11/27/21 16:44 WBC RBC Hgb Hct MCH RDW Plt Count Lymph % (Auto) [place] % (Auto) Lymph # (Auto) [place] # (Auto) Seg Neutrophils % Seg Neuts % (Manual) Lymphocytes % (Manual) Nucleated RBC % Seg Neutrophils # Seg Neutrophils # Man Monocytes # (Manual) PT INR APTT D-Dimer Heparin Anti-Xa Level ABG pH ABG pO2 ABG HCO3 ABG O2 Saturation ABG Base Excess ABG Hemoglobin Oxyhemoglobin Sodium Potassium Chloride Carbon Dioxide BUN Creatinine Glucose POC Glucose 126 H Hemoglobin A1c Lactic Acid Calcium Phosphorus Magnesium Ferritin AST ALT Alkaline Phosphatase Lactate Dehydrogenase Troponin T C-Reactive Protein Total Protein Albumin LDL Cholesterol Direct Urine Creatinine Urine Total Protein Salicylates Acetaminophen Crossmatch Chest x-ray: report reviewed, image reviewed Additional Studies: CHEST 1 VIEW 11/27/2021 8:08 AM INDICATION / CLINICAL INFORMATION: Follow up on pulmonary edema.. COMPARISON: 11/18/2021 FINDINGS: SUPPORT DEVICES: None. HEART / MEDIASTINUM: No significant abnormality. LUNGS / PLEURA: No significant pulmonary or pleural abnormality. No pneumothorax. ADDITIONAL FINDINGS: No significant additional findings. IMPRESSION: 1. No acute findings. Allied health notes reviewed: nursing
[2021-11-27] MEDS: LACTULOSE 20 GM/30 ML ORAL LIQD PO PRN (18:28)
[2021-11-27] MEDS: MELATONIN 5 MG TAB PO PRN (21:32)
[2021-11-28] MEDS: oxyCODONE /ACETAMINOPHEN 5-325MG TAB PO PRN ×4 (02:32→18:46)
[2021-11-28] MEDS: hydrALAZINE 25 MG TAB PO SCH ×3 (06:06→21:23)
--- NOTE | 2021-11-28 08:41 | Progress Note ---
Assessment and Plan Assessment and plan: 66 YO Female with Obesity was attending [facility] services when the patient collapsed and lost consciousness. Witnesses began CPR. EMS was notified and upon arrival the patient was found to be in distress without perfusing cardiac rhythm. Patient initiated on ACLS protocol and subsequently intubated in the field and transported to ED. The patient regained spontaneous circulation during transport. She was found to have acute hypoxemic respiratory failure, septic shock suspected secondary to aspiration pneumonia, metabolic acidosis, toxic metabolic encephalopathy, shock liver, and cardiac arrest with return of perfusing cardiac rhythm after initiation of ACLS protocol. Patient initiated on sepsis protocol as well as pneumonia protocol. Patient admitted to ICU. Patient improved, extubated on 11/11 and transferred to floor on 11/19. s/p cardiac arrest, collapse at [facility], HFrEF, shock/hypotension resolved Atrial fibrillation/atrial flutter -Cardiac arrest and collapse at [facility] with ROSC -Cardiology consulted, appreciate recommendations - S/p Cardizem gtt- d/c due to low EF; now on PO Amio -s/p vasopressor support with levophed -Echocardiogram shows left ventricular systolic function severely decreased, LVEF 25 to 30%, no pericardial effusion -proBNP 5622 -Continue Lasix 20 mg twice daily, BB, spironolactone, losartan -No significant volume overload clinically Acute hypoxic respiratory failure, right pneumothorax, Angioedema (resolved), pulmonary edema -[facility] consulted, appreciate recommendations -Intubated on 10/29 and extubated on 11/11 -Bipap q HS and prn, at high risk for KOLBY with morbid obesity -NC during day -s/p right chest tube for pneumothorax -s/p steroids for angioedema -On Lasix for pulmonary edema. Transaminitis likely shocked liver - resolved Acute kidney injury likely secondary to vasomotor nephropathy, hypernatremia -Nephrology consulted, appreciate recommendations -Krishna replaced 11/05 urinary retention -FeNa 0.05 indicating pre-renal -SIERRA and hyponatremia resolved. Creatinine 1.0 on Lasix IV Shock cardiogenicsuspected sepsis -Fever was as high as 102 with a leukocytosis Blood, urine and sputum cultures negative -COVID-19 PCR negative -S/p empiric antibiotic therapy for possible pneumonia with Rocephin and azithromycin () -S/p Levophed gtt for hypotension -Fever and leukocytosis resolved -Monitor WBC and temperature curve Acute Metabolic encephalopathy, agitation/anxiety -Etiology likely from a cardiac arrest, shock and cerebral hypoperfusion CT head no acute focal parenchymal lesion in the brain -Neurology consulted, appreciate recommendations -EEG and MRI noted, Neuro recommend to cut down on sedation as possible Mental status significantly improved, currently fairly alert and oriented. Answers appropriately. Acute DVT in the left posterior tibial vein and bilateral peroneal veins, Anemia, retroperitoneal bleed -D-dimer greater than 10,000 -CTA chest with no evidence of PE -Bilateral lower extremity ultrasound positive for DVT -Heparin gtt on hold d/t anemia, received PRBC x4 -vasuclar surgery consulted, appreciate recommendations -recommended multiphasic CT angio of the abdomen and pelvis with and without contrast if H/H drops and did not recommend IVC filter at this time as the DVTs are infrapopliteal and recommends a follow-up DVT study weekly for 2 weeks. Repeat venous duplex ultrasound on 11/21 showed progression of left peroneal DVT extending into popliteal vein. Vascular surgery completed IVC filter placement on 11/22. -Trend CBC -SCDs to BLE while in bed -Transfuse hemoglobin less than 7 -Monitor for signs of bleeding -Hemoglobin stable, 8.6 Hypertension, not able be controlled Increase losartan 200 mg daily and add hydralazine as needed. Hyperglycemia ,resolved) -Avoid hypoglycemia -Hbg A1C 6.7 -SSI and lantus q hs (titrate as needed) -Accu-Cheks q. 6 Morbid obesity High risk for KOLBY On nightly BiPAP Deconditioning PT/OT Hospital Course to Date: 10/30: Intubated and sedated, on fentanyl gtt. Open eyes spontaneously but does not follow any commands. On vasopressors, titrate as tolerated for MAP above 65. Patient febrile overnight, continue empiric IV Abx, culture data and COVID PCR pending. Patient is also s/p CT placement due to spontaneous pneumothorax. 2D echo is pending and Cardiology is consulted. 10/31: Patient remains intubated and following commands. Levophed drip stopped and potassium repleted. Patient started on tube feeding. Remains in soft bilateral restraints. 11/01: RN noted ST changes on BSM and 12 lead EKG obtained which showed ST. Given Ativan 1mg for agitation as she is maxed on fentanyl drip and IV push fentanyl did not seem to help. Patient was started on CPAP this morning by RT but remained on fentanyl drip and was having periods of apnea. Plan was to retry CPAP again in the p.m. with sedation off. 11/02: Rate increased r/t hypercapnea on ABG, sedation reduced. Given kionex for hyperkalemia and was started on levophed overnight for hypotension. 11/03: Overnight patient had tachycardia and was given Cardizem and Lopressor. Lopressor was repeated in the a.m. due to tachycardia. Patient will be started on amiodarone with a bolus per cardiology. Patient started on normal saline per liter per [facility] and steroids for angioedema. Noted to have bright red blood when suctioned from oh ETT. Remains on heparin drip as H/H is stable for now. Will reevaluate. Fentanyl drip was restarted last night due to agitation. Dr. Flores updated family today 11/04: Patient was sedated on fentanyl however off sedation is able to follow commands, a.m. labs completed in the p.m. and show hyperkalemia with increased renal function studies. Nephrology, neurology consulted by [facility]. Given Kayexalate, insulin and D50 for hyperkalemia. Patient remains on amiodarone. 11/05: Patient needed to be sedated on fentanyl again to today. overnight krishna was replaced. Hyperkalemia->given kionex 60 for 5.6. Repeat K 6-> Dr. Grant informed and requested bumex, kionex, insulin, d50, calcium gluconate and sodium bicarb with repeat BMP in 2 hours which were placed. HR remains elevated. 11/06: Patient remained in atrial fibrillation/atrial flutter with heart rate in the 150s despite being on amnio drip and was given amnio bolus, Cardizem bolus and started on Cardizem drip by cardiology. Patient is on beta-blockers p.o. scheduled and to feedings changed to Nepro. Kayexalate was given in the morning by nephrology due to hyperkalemia. 11/07: Patient is only responsive to mild stimuli, precedex added in an attempt to wean off fentanyl gtt to better assess her mental status. Neurology also on consult, pending MRI and EEG. Patient remains in Aflutter this am, HR in the 80 to 90s, still on amiodarone and heparin gtt. 11/08: Fentanyl gtt is off, only on precedex gtt. Patient is still not following any commands. MRI brain and EEG completed. Neuro recommendations noted, sedatives agents decreased. FWF added for hypernatremia and low K repleted, repe at labs ordered. Placed a call and spoke with patient's daughter, Eva Brown . She was updated on patient's conditions and status. All questions and concerns were voiced at this time. 11/09: Patient is awake and alert this am, following commands and appropriate. Remains on precedex gtt, plan for possible PST today. Hypertensive overnight, meds adjusted by Cardio and PRN Hydralazine added for SBP greater than 160. CT dislodged overnight, CXR is stable with no significant change. F/U CXR in the am. Patient's daughter, Eva Brown, visited with patient. She was updated on patient's status and goal of care for today. All questions and concerns were voiced at this time. 11/10: Mentation remains intact, still on precedex gtt. This am CXR noted still with fluid overload s/p X1 dose of IV lasix, good response from IV lasix overnight. Hypernatremia improved, D5W d/dayday. Still with persistent hypokalemia, continue electrolytes replacement and frequent lab check. Daily IV lasix and aldactone added by Cardio. Patient is also with persistent low grade fevers overnight, leukocytosis with mild improvement this am. Will get a repeat sputum culture, hold off on IV abx for now. Consider ID consult if fevers and leukocytosis persist. Patient tolerated PST X4hrs yesterday. PST again today, plan to wean to extubate if tolerated. 11/11: IAM overnight. Off precedex gtt and tolerated PST this am. Plan to wean to extubate today. Additional IV lasix given, plan to keep patient at a net negative balance for better lung compliance. F/U CXR in the am. K improved this am, repeat BMP this afternoon since diuresing. Remains with low grade fevers, leukocytosis downtrending, will continue to monitor. Speech/PT/OT ordered 11/12: S/p extubation, now stable on 3L NC. This am CXR noted with no significant changes, lasix changed to IV X4days BID. Drop in H&H this am, and Lt. flank ecchymosis noted. Heparin gtt on hold for now and orders placed for 1 unit of PRBCs and Ct Abd/Pelvis w/o con to r/o retroperitoneal bleed. Pending speech swallow eval, keep patient NPO for now. Patient is stable for IMCU status 11/13: Patient with increased WOB and tachycardia this am, patient was placed on Bipap and precedex gtt was resumed. CXR with mild improvement. CT Abd/Pelvis also reviewed large hematomas noted at the Lt. retroperitoneum and left posterior lateral abdominal wall. Heparin gtt is already on hold, patient is hemodynamically stable. Vascular Surgery consulted for possible IVC filter eval. Patient s/p 2units of PRBCs, will continue to trend H&H and transfuse if hbg is less than 7. Worsening renal function this am, IF diuretic on hold for now. Patient is also febrile with spike in wbcs most likely reactive to bleed, will panculture and hold off on IV Abx for now. Patient also failed speech bedside swallow eval yesterday, NGT in placed plan to resume enteral nutrition 11/14: Patient had bilateral lower extremity Doppler ultrasound and vascular surgery has recommended multiphasic CT angio of the abdomen and pelvis with and without contrast if H/H drops and does not recommend IVC filter at this time as the DVTs are infrapopliteal and recommends a DVT study weekly for 2 weeks. FWF 250 q4 ml per nephro. Started on as needed Xanax and p.o. amiodarone. She did not pass her ST evaluation today. Will be transferred to [facility]. 11/15: Resting comfortably on encounter. Speech cleared for pureed diet. Remains on 3l satting 98 % on bedside encounter. Does not appear to be in respiratory distress. Will continue to hold AC, No ivc filter planned at this time. qweekly doppler to monitor for migration of DVT per vascular. If demonstrated, will consider IVC filter. CBC ordered for tomorrow, will continue monitoring in light of retroperitoneal hematoma. FWF increased by nephrology to 350cc q4hr d/t hypernatremia. UOP/renal function both improved. D/w cardiology, will continue amiodorone an additional 24hrs. Plan to change dosing of metoprolol. Continue to wean off of precedex. Continue xanax scheduled for anxiety. physical therapy recs noted, fernanda / ltac will discuss with CM. Continue IMCU monitoring. 11/16: Pulmonary congestion this AM. CXR ordered. Lasix 40 mg IV x 1 order this AM. Will monitor for 24 hrs. potential downgrade to medical floor tomorrow. 11/17: Persisting pulmonary congestion, was on bipap overnight into this AM. Will order additional lasix 40 mg IV x 2. CXR ordered for AM. Possible downgrade to floor tomorrow. Anticipate d/c sunday. 11/18: Patient seen and examined, continue weaning, will continue diuresis BID, discussed with daughter. 11/19: Patient seen and examined this morning doing well no acute distress noted. Lasix was increased to twice daily to 20 mg IV. Clinically improving. Patient will be transferred to telemetry today can be switched to Lasix p.o. twice daily in a.m. She has her weekly Doppler of lower extremity tomorrow vascular is following for this. She was taken off anticoagulation secondary to retroperitoneal bleed., The anticoagulation was started initially for atrial fibrillation and an infrapopliteal DVT. During her hospital stay she had a prolonged ventilator management and was successfully weaned off. She also received a total of 4 units of packed red blood cell. Hemoglobin has remained stable. Anticipate discharge in next 48 hours if continues to clinically stay stable. : Transferred from ICU on 11/19. Progressive improving. Currently awake and oriented. O2 weaned to 4 L. Hemodynamically stable. BP control being optimized. MiraLAX for constipation. Hemoglobin stable on the heparin infusion, being monitored closely with history of retroperitoneal bleed. 11/21: Patient remains mostly bedridden. She is awake and oriented on 2 L of O2. Repeat ultrasound showed extension of left peroneal DVT into popliteal vein. Heparin was discontinued for significant retroperitoneal bleed and off anticoagulation since. Vascular surgery plan for placement of IVC filter tomorrow. Patient is chest pains, palpitations, hemoptysis. She has some cough. Left lower extremity pain likely from DVT better today. Discussed with the patient, nursing staff and vascular surgery. 11/22: The infrapopliteal vein thrombosis has propagated to the left popliteal vein. Vascular surgery to perform IVC filter placement today. 11/23: Vascular surgery placed IVC filter yesterday. Continue metoprolol 100 mg p.o. twice daily, Aldactone 25 mg p.o. daily and losartan 25 mg p.o. daily. Patient still requiring BiPAP (IPAP18, EPAP8) with FiO2 of 30%. Continue to wean oxygen per pulmonary recommendations. Nurse reports patient is having vaginal bleeding. We will check serial CBC and pelvic ultrasound 11/24: I discussed with cardiology yesterday the need for a LifeVest. LifeVest is ordered and pending. Patient is s/p IVC filter placement. Continue metoprolol 100 mg p.o. twice daily, Aldactone 25 mg p.o. daily and losartan 25 mg p.o. da amy. Patient still requiring BiPAP (IPAP18, EPAP8) with FiO2 of 30%. Continue to wean oxygen per pulmonary recommendations. No further reports of vaginal bleeding. Pelvic ultrasound negative 11/25: Awaiting for LifeVest. Patient is s/p IVC filter placement. Continue metoprolol 100 mg p.o. twice daily, Aldactone 25 mg p.o. daily and losartan 25 mg p.o. daily. Patient still requiring BiPAP (IPAP18, EPAP8) with FiO2 of 30%. Continue to wean oxygen per pulmonary recommendations. 11/26: Physical therapy recommends subacute rehab. Still awaiting LifeVest. Patient is s/p IVC filter placement. Continue metoprolol 100 mg p.o. twice daily, Aldactone 25 mg p.o. daily and losartan 25 mg p.o. daily. Patient still requiring BiPAP (IPAP18, EPAP8) with FiO2 of 30% at night. Continue to wean oxygen per pulmonary recommendations. Patient currently with 2 L O2. 11/27: Physical therapy recommends subacute rehab. Patient has a LifeVest. Patient's left lower extremity pain likely related to DVT. Continue pain control. Continue metoprolol 100 mg p.o. twice daily, Aldactone 25 mg p.o. daily and losartan 25 mg p.o. daily. Patient still requiring BiPAP (IPAP18, EPAP8) with FiO2 of 30% at night. 11/28: Physical therapy recommends subacute rehab. Patient has a LifeVest. Patient continues to complain of left lower extremity pain which makes it very difficult for ambulation. Continue Percocet for pain control. Add neurontin for possible neuropathy. Etiology is likely secondary to DVT. Continue metoprolol 100 mg p.o. twice daily, Aldactone 25 mg p.o. daily and losartan 25 mg p.o. daily. Patient still requiring BiPAP (IPAP18, EPAP8) with FiO2 of 30% at night. Repeated Doppler US of LLE and will ask vascular surgery to revisit. History Interval history: No new issues overnight. Hospitalist Physical - Constitutional Vitals: Temp Pulse Resp BP Pulse Ox 97.9 F 75 17 115/67 98 11/28/21 04:19 11/28/21 06:06 11/28/21 04:19 11/28/21 06:06 11/28/21 08:24 General appearance: Present: no acute distress, obese (Morbidly obese) - EENT Eyes: Present: PERRL, EOM intact ENT: hearing intact, clear oral mucosa, dentition normal - Neck Neck: Present: supple, normal ROM - Respiratory Respiratory effort: normal Respiratory: bilateral: CTA - Cardiovascular Rhythm: regular Heart Sounds: Present: S1 & S2. Absent: gallop, rub - Extremities Extremities: no ischemia, No edema, Full ROM - Abdominal General gastrointestinal: soft, non-tender, non-distended, normal bowel sounds - Integumentary Integumentary: Present: clear, warm, dry - Neurologic Neurologic: CNII-XII intact, moves all extremities HEART Score - HEART Score Troponin: Troponin T 1.150 ng/mL (0.00-0.029) H* D 10/29/21 22:34 Results - Labs CBC & Chem 7: 11/24/21 07:19 11/24/21 07:19 Labs: Laboratory Last Values WBC 10.6 K/mm3 (4.5-11.0) 11/24/21 07:19 RBC 3.12 M/mm3 (3.65-5.03) L 11/24/21 07:19 Hgb 9.3 gm/dl (10.1-14.3) L 11/24/21 07:19 Hct 27.2 % (30.3-42.9) L 11/24/21 07:19 MCV 87 fl (79-97) 11/24/21 07:19 MCH 30 pg (28-32) 11/24/21 07:19 MCHC 34 % (30-34) 11/24/21 07:19 RDW 16.0 % (13.2-15.2) H 11/24/21 07:19 Plt Count 255 K/mm3 (140-440) 11/24/21 07:19 Lymph % (Auto) 10.3 % (13.4-35.0) L 11/24/21 07:19 [place] % (Auto) 10.0 % (0.0-7.3) H 11/24/21 07:19 Eos % (Auto) 3.7 % (0.0-4.3) 11/24/21 07:19 Baso % (Auto) 0.8 % (0.0-1.8) 11/24/21 07:19 Lymph # (Auto) 1.1 K/mm3 (1.2-5.4) L 11/24/21 07:19 [place] # (Auto) 1.1 K/mm3 (0.0-0.8) H 11/24/21 07:19 Eos # (Auto) 0.4 K/mm3 (0.0-0.4) 11/24/21 07:19 Baso # (Auto) 0.1 K/mm3 (0.0-0.1) 11/24/21 07:19 Add Manual Diff Complete 11/07/21 06:30 Total Counted 100 11/07/21 06:30 Seg Neutrophils % 75.2 % (40.0-70.0) H 11/24/21 07:19 Seg Neuts % (Manual) 77.0 % (40.0-70.0) H 11/07/21 06:30 Band Neutrophils % 1.0 % 11/07/21 06:30 Lymphocytes % (Manual) 11.0 % (13.4-35.0) L 11/07/21 06:30 Reactive Lymphs % (Man) 3.0 % 11/07/21 06:30 Monocytes % (Manual) 2.0 % (0.0-7.3) 11/07/21 06:30 Eosinophils % (Manual) 0 % (0.0-4.3) 11/07/21 06:30 Basophils % (Manual) 0 % (0.0-1.8) 11/07/21 06:30 Metamyelocytes % 1.0 % 11/07/21 06:30 Myelocytes % 5.0 % 11/07/21 06:30 Promyelocytes % 0 % 11/07/21 06:30 Blast Cells % 0 % 11/07/21 06:30 Nucleated RBC % 2.0 % (0.0-0.9) H 11/07/21 06:30 Seg Neutrophils # 7.9 K/mm3 (1.8-7.7) H 11/24/21 07:19 Seg Neutrophils # Man 12.3 K/mm3 (1.8-7.7) H 11/07/21 06:30 Band Neutrophils # 0.2 K/mm3 11/07/21 06:30 Lymphocytes # (Manual) 1.8 K/mm3 (1.2-5.4) 11/07/21 06:30 Abs React Lymphs (Man) 0.5 K/mm3 11/07/21 06:30 Monocytes # (Manual) 0.3 K/mm3 (0.0-0.8) 11/07/21 06:30 Eosinophils # (Manual) 0.0 K/mm3 (0.0-0.4) 11/07/21 06:30 Basophils # (Manual) 0.0 K/mm3 (0.0-0.1) 11/07/21 06:30 Metamyelocytes # 0.2 K/mm3 11/07/21 06:30 Myelocytes # 0.8 K/mm3 11/07/21 06:30 Promyelocytes # 0.0 K/mm3 11/07/21 06:30 Blast Cells # 0.0 K/mm3 11/07/21 06:30 WBC Morphology Not Reportable 11/07/21 06:30 Hypersegmented Neuts Not Reportable 11/07/21 06:30 Hyposegmented Neuts Not Reportable 11/07/21 06:30 Hypogranular Neuts Not Reportable 11/07/21 06:30 Smudge Cells Not Reportable 11/07/21 06:30 Toxic Granulation Not Reportable 11/07/21 06:30 Toxic Vacuolation Not Reportable 11/07/21 06:30 Dohle Bodies Not Reportable 11/07/21 06:30 Pelger-Huet Anomaly Not Reportable 11/07/21 06:30 Manny Rods Not Reportable 11/07/21 06:30 Platelet Estimate Consistent w auto 11/07/21 06:30 Clumped Platelets Not Reportable 11/07/21 06:30 Plt Clumps, EDTA Not Reportable 11/07/21 06:30 Large Platelets 1+ 11/07/21 06:30 Giant Platelets Not Reportable 11/07/21 06:30 Platelet Satelliting Not Reportable 11/07/21 06:30 Plt Morphology Comment Not Reportable 11/07/21 06:30 RBC Morphology Not Reportable 11/07/21 06:30 Dimorphic RBCs Not Reportable 11/07/21 06:30 Polychromasia Not Reportable 11/07/21 06:30 Hypochromasia 1+ 11/07/21 06:30 Poikilocytosis Not Reportable 11/07/21 06:30 Anisocytosis Not Reportable 11/07/21 06:30 Microcytosis Not Reportable 11/07/21 06:30 Macrocytosis Not Reportable 11/07/21 06:30 Spherocytes 1+ 11/07/21 06:30 Pappenheimer Bodies Not Reportable 11/07/21 06:30 Sickle Cells Not Reportable 11/07/21 06:30 Target Cells 1+ 11/07/21 06:30 Tear Drop Cells Not Reportable 11/07/21 06:30 Ovalocytes Not Reportable 11/07/21 06:30 Helmet Cells Not Reportable 11/07/21 06:30 Maradiaga-Rosalia Bodies Not Reportable 11/07/21 06:30 [place] Rings Not Reportable 11/07/21 06:30 [place] Cells Not Reportable 11/07/21 06:30 Bite Cells Not Reportable 11/07/21 06:30 Crenated Cell Not Reportable 11/07/21 06:30 Elliptocytes Not Reportable 11/07/21 06:30 Acanthocytes (Spur) Not Reportable 11/07/21 06:30 Rouleaux Not Reportable 11/07/21 06:30 Hemoglobin C Crystals Not Reportable 11/07/21 06:30 Schistocytes Not Reportable 11/07/21 06:30 Malaria parasites Not Reportable 11/07/21 06:30 Magdy Bodies Not Reportable 11/07/21 06:30 Hem Pathologist Commnt No 11/07/21 06:30 PT 17.2 Sec. (12.2-14.9) H 10/30/21 16:30 INR 1.27 (0.87-1.13) H 10/30/21 16:30 APTT 44.4 Sec. (24.2-36.6) H 10/30/21 16:30 D-Dimer > 56564 ng/mlDDU (0-234) H 10/30/21 Unknown Heparin Anti-Xa Level 0.62 U.I./ml (0.3-0.7) 11/12/21 03:30 ABG pH 7.475 pH Units (7.350-7.450) H 11/11/21 13:53 ABG pCO2 45.0 mm Hg 11/11/21 13:53 ABG pO2 64.1 mm Hg (80.0-90.0) L 11/11/21 13:53 ABG HCO3 32.4 mmol/L (20.0-26.0) H 11/11/21 13:53 ABG O2 Saturation 96.3 % (95.0-99.0) 11/11/21 13:53 ABG O2 Content 10.1 (0.0-44) 11/11/21 13:53 ABG Base Excess 8.0 mmol/L (-2.0-3.0) H 11/11/21 13:53 ABG Hemoglobin 7.6 gm/dl (12.0-16.0) L 11/11/21 13:53 ABG Carboxyhemoglobin 1.8 % (0.0-5.0) 11/11/21 13:53 ABG Methemoglobin 0.5 % (0.0-1.5) 11/11/21 13:53 Oxyhemoglobin 94.0 % (95.0-99.0) L 11/11/21 13:53 FiO2 32 % 11/11/21 13:53 Sodium 138 mmol/L (137-145) 11/24/21 07:19 Potassium 3.2 mmol/L (3.6-5.0) L 11/24/21 07:19 Chloride 96.7 mmol/L (98-107) L 11/24/21 07:19 Carbon Dioxide 30 mmol/L (22-30) 11/24/21 07:19 Anion Gap 15 mmol/L 11/24/21 07:19 BUN 10 mg/dL (7-17) 11/24/21 07:19 Creatinine 1.0 mg/dL (0.6-1.2) 11/24/21 07:19 Estimated GFR > 60 ml/min 11/24/21 07:19 BUN/Creatinine Ratio 10 % 11/24/21 07:19 Glucose 125 mg/dL (65-100) H 11/24/21 07:19 POC Glucose 124 mg/dL (70-105) H 11/28/21 07:54 Hemoglobin A1c 6.7 % (4-6) H 10/31/21 04:30 Lactic Acid 0.70 mmol/L (0.7-2.0) 10/31/21 15:45 Calcium 8.7 mg/dL (8.4-10.2) 11/24/21 07:19 Phosphorus 3.10 mg/dL (2.5-4.5) 11/19/21 14:38 Magnesium 1.60 mg/dL (1.7-2.3) L 11/19/21 14:38 Ferritin 208.4 ng/mL (10.0-200.0) H 10/30/21 Unknown Total Bilirubin < 0.20 mg/dL (0.1-1.2) 11/06/21 02:35 AST 21 units/L (5-40) 11/06/21 02:35 ALT 77 units/L (7-56) H 11/06/21 02:35 Alkaline Phosphatase 84 units/L (35-129) 11/06/21 02:35 Ammonia 31.0 umol/L (25-60) 10/29/21 15:10 Lactate Dehydrogenase 469 units/L (91-180) H 10/30/21 Unknown Troponin T 1.150 ng/mL (0.00-0.029) H* D 10/29/21 22:34 C-Reactive Protein 13.40 mg/dL (0.00-1.30) H 10/30/21 Unknown Total Protein 6.3 g/dL (6.3-8.2) 11/06/21 02:35 Albumin 3.0 g/dL (3.9-5) L 11/06/21 02:35 Albumin/Globulin Ratio 0.9 % 11/06/21 02:35 Triglycerides 68 mg/dL (2-149) 10/29/21 19:40 Cholesterol 98 mg/dL (50-199) 10/29/21 19:40 LDL Cholesterol Direct 43 mg/dL (50-130) L 10/29/21 19:40 HDL Cholesterol 50 mg/dL (40-59) 10/29/21 19:40 Cholesterol/HDL Ratio 1.96 % 10/29/21 19:40 Procalcitonin 61.95 ng/mL (<0.15) 10/30/21 Unknown TSH 3.080 mlU/mL (0.270-4.200) 10/29/21 15:10 Urine Color Yellow (Yellow) 11/13/21 08:30 Urine Turbidity Slightly-cloudy (Clear) 11/13/21 08:30 Urine pH 6.0 (5.0-7.0) 11/13/21 08:30 Ur Specific [place] 1.010 (1.003-1.030) 11/13/21 08:30 Urine Protein <15 mg/dl mg/dL (Negative) 11/13/21 08:30 Urine Glucose (UA) Neg mg/dL (Negative) 11/13/21 08:30 Urine Ketones Tr mg/dL (Negative) 11/13/21 08:30 Urine Blood Sm (Negative) 11/13/21 08:30 Urine Nitrite Neg (Negative) 11/13/21 08:30 Urine Bilirubin Neg (Negative) 11/13/21 08:30 Urine Urobilinogen < 2.0 mg/dL (<2.0) 11/13/21 08:30 Ur Leukocyte Esterase Neg (Negative) 11/13/21 08:30 Urine WBC (Auto) < 1.0 /HPF (0.0-6.0) 11/13/21 08:30 Urine RBC (Auto) < 1.0 /HPF (0.0-6.0) 11/13/21 08:30 U Epithel Cells (Auto) < 1.0 /HPF (0-13.0) 11/13/21 08:30 Urine Mucus Few /HPF 10/29/21 18:15 Urine Eosinophils None seen (None Seen) 11/04/21 Unknown Urine Creatinine 190.9 mg/dL (0.1-20.0) H 11/04/21 Unknown Protein/Creatinin Ratio 0.90 11/04/21 Unknown Urine Sodium 10 mmol/L 11/04/21 Unknown Urine Total Protein 172 mg/dL (5-11.8) H 11/04/21 Unknown Salicylates < 0.3 mg/dL (2.8-20.0) L 10/29/21 15:10 Urine Opiates Screen Negative 10/29/21 18:15 Urine Methadone Screen Negative 10/29/21 18:15 Acetaminophen 5.0 ug/mL (10.0-30.0) L 10/29/21 15:10 Ur Barbiturates Screen Negative 10/29/21 18:15 Ur Phencyclidine Scrn Negative 10/29/21 18:15 Ur Amphetamines Screen Negative 10/29/21 18:15 U Benzodiazepines Scrn Negative 10/29/21 18:15 Urine Cocaine Screen Negative 10/29/21 18:15 U Marijuana (THC) Screen Negative 10/29/21 18:15 Drugs of Abuse Note Disclamer 10/29/21 18:15 Plasma/Serum Alcohol < 0.01 % (0-0.07) 10/29/21 15:10 Coronavirus (PCR) Negative (Negative) 10/30/21 Unknown Blood Type O POSITIVE 11/12/21 04:15 Antibody Screen Negative 11/12/21 04:15 Crossmatch See Detail 11/12/21 04:15 Krishna/IV: Voiding Method External Female Catheter Active Medications - Current Medications Current Medications: Generic Name Dose Route Start Last Admin Trade Name Freq PRN Reason Stop Dose Admin Acetaminophen 650 mg 10/29/21 17:04 11/12/21 22:53 Acetaminophen 650 Mg Rect Supp PA 650 mg Q6H PRN Administration Pain MILD(1-3)/Fever >100.5/NIEVES Acetaminophen 650 mg 11/19/21 16:35 11/27/21 11:23 Acetaminophen 325 Mg Tab PO 650 mg Q6HR PRN Administration PAIN Alprazolam 0.25 mg 11/14/21 14:29 11/27/21 11:24 Alprazolam 0.25 Mg Tab PO 0.25 mg Q8H PRN Administration Anxiety Dextrose 0 ml 11/04/21 13:48 11/12/21 05:45 Dextrose 10% *Hypoglycemia IV 50 ml PRN PRN Administration Hypoglycemia Docusate Sodium 100 mg 11/18/21 15:00 11/27/21 21:32 Docusate Sodium 100 Mg Cap PO 100 mg BID RAMON Administration Famotidine 10 mg 11/06/21 10:00 11/27/21 21:31 Famotidine 10 Mg Tab PO 10 mg BID RAMON Administration Furosemide 20 mg 11/18/21 10:00 11/27/21 21:32 Furosemide 20 Mg/2 Ml Inj IV 20 mg BID RAMON Administration Hydralazine HCl 50 mg 11/22/21 22:00 11/28/21 06:06 Hydralazine 25 Mg Tab PO 50 mg Q8HR RAMON Administration Hydrophilic Ointment 1 applic 10/29/21 14:29 11/09/21 08:51 Lip Therapy Vaseline TP 1 applic Q2HR PRN Administration Dry Lips Insulin Human Lispro 0 unit 11/25/21 22:00 11/27/21 21:37 Insulin Lispro 100 Unit/Ml SUB-Q Not Given ACHS [facility] [place] Protocol Lactulose 20 gm 11/18/21 14:43 11/27/21 18:28 Lactulose 20 Gm/30 Ml Oral Liqd PO 20 gm Q6H PRN Administration Constipation Losartan Potassium 50 mg 11/20/21 11:00 11/27/21 21:31 Losartan 25 Mg Tab PO 50 mg BID RAMON Administration Melatonin 10 mg 11/22/21 17:31 11/27/21 21:32 Melatonin 5 Mg Tab PO 10 mg QHS PRN Administration Sleep Metoprolol Tartrate 100 mg 11/16/21 22:00 11/27/21 21:32 Metoprolol Tartrate 100 Mg Tab PO 100 mg BID RAMON Administration Multi-Ingred Cream/Lotion/Oil/Oint 1 applic 10/29/21 14:29 11/06/21 09:25 Mineral Oil/Petrolatum, White Ophth Oint 3.5 Gm OU 1 applic Q4HR PRN Administration Dry Eye(s) Oxycodone/Acetaminophen 1 tab 11/27/21 14:31 11/28/21 06:06 Oxycodone /Acetaminophen 5-325mg Tab PO 1 tab Q4H PRN Administration Pain, Moderate (4-6) Polyethylene Glycol 17 gm 11/20/21 12:47 11/25/21 08:30 Polyethylene Glycol 3350 17 Gm Powder PO 17 gm QDAY PRN Administration Constipation Senna/Docusate Sodium 1 tab 11/16/21 22:00 11/27/21 21:31 Sennosides/Docusate Sodium 8.6/50 Mg Tab PO 1 tab BID RAMON Administration Sodium Chloride 10 ml 10/29/21 22:00 11/27/21 21:33 Sodium Chloride 0.9% 10 Ml Flush Syringe IV 10 ml BID RAMON Administration Sodium Chloride 10 ml 10/29/21 17:04 Sodium Chloride 0.9% 10 Ml Flush Syringe IV PRN PRN LINE FLUSH Spironolactone 25 mg 11/10/21 10:00 11/27/21 09:46 Spironolactone 25 Mg Tab PO 25 mg QDAY RAMON Administration Nutrition/Malnutrition Assess - Dietary Evaluation Nutrition/Malnutrition Findings: Nutrition Notes Start: 10/30/21 09:50 Freq: Status: Active Protocol: Document 11/25/21 19:04 MEENU (Rec: 11/25/21 19:16 MEENU [id number]) Nutrition Notes Initial or Follow up Reassessment Current Diagnosis Sepsis,Hypertension, Respiratory Failure Other Pertinent Diagnosis s/p Cardiac Arrest, DVT, Anemia, Pneumonia, Pneumothorax, P Edema, HFrEF.. . Current Diet Mechanical Soft Diet (since B 11/22). Labs/Tests 11/24: K 3.2, Cl 96.7, Glu 125 . Pertinent Medications 11/25: Nutritionally unremarkable. Height 5 ft 10 in Weight 109.5 kg [place] Body Weight (kg) 68.18 BMI 34.6 Weight change and time frame 2.5 Kg body weight loss in 1 week reported. Weight Status Obese Subjective/Other Information RD consulr for routine F/U on Diet tolerance/advancement. Diet has advanced to Mechanical Soft. Pt's PO intake of meals has been Fair (50-75%), according to ADL notes. Percent of energy/protein needs met: Prescribed Mechanical Soft Diet provides for energy/ protein needs (2,048 Kcal/97 g ) during LOS. Burn Absent Trauma Absent GI Symptoms None Food Allergy No Skin Integrity/Comment Assessment WNL. Current % PO Fair (50-74%) Minimum of two criteria No #1 Nutrition Diagnosis Inadequate oral intake Comments: Pt's PO intake of meals has been Fair (50-75%), according to ADL notes. Diet advanced to Mechanical Soft. Diagnosis Progress(for reassessment Improved documentation) Is patient on ventilator? No Is Patient Ambulatory and/or Out of Bed No REE-([facility]-confined to bed) [phone] Kcal/Kg value to use for calculation 15 Approximate Energy Requirements Using 1643 kcal/Kg Calculation Used for Recommendations Kcal/kg Additional Notes Protein: 0.8-1.2 g/Kg IBW; 70- 105 g/day. Fluids: 1 ml/Kcal, or as per MD. Nutrition Intervention Change Diet Order: Continue Mechanical Soft Diet. Goal #1 Maintain body weight within +/ -3% of admission body weight during LOS. Goal #2 Facilitate PO intake of meals with mechanical modification during LOS. Follow-Up By: 12/02/21 Additional Comments Continue monitoring food tolerance, %PO intake of meals , and BM.
[2021-11-28] MEDS: LOSARTAN 25 MG TAB PO SCH ×3 (10:25→21:22)
[2021-11-28] MEDS: FUROSEMIDE 20 MG/2 ML INJ IV SCH ×2 (10:25→21:23)
[2021-11-28] MEDS: DOCUSATE SODIUM 100 MG CAP PO SCH ×2 (10:25→21:22)
[2021-11-28] MEDS: SPIRONOLACTONE 25 MG TAB PO SCH (10:25)
[2021-11-28] MEDS: METOPROLOL TARTRATE 100 MG TAB PO SCH ×3 (10:25→21:23)
[2021-11-28] MEDS: FAMOTIDINE 10 MG TAB PO SCH ×2 (10:25→21:24)
[2021-11-28] MEDS: SENNOSIDES/DOCUSATE SODIUM 8.6/50 MG TAB PO SCH ×2 (10:25→21:22)
[2021-11-28] MEDS: INSULIN LISPRO 100 UNIT/ML SUB-Q SCH ×4 (10:28→22:38)
[2021-11-28 12:17] LABS: Basophils # (Auto) 0.1 K/mm3 (0.0-0.1); Basophils % (Auto) 0.9 % (0.0-1.8); Eosinophils # (Auto) 0.3 K/mm3 (0.0-0.4); Eosinophils % (Auto) 2.3 % (0.0-4.3); Hematocrit 27.8 % (30.3-42.9); Hemoglobin 9.2 gm/dl (10.1-14.3); Lymphocytes # (Auto) 1.3 K/mm3 (1.2-5.4); Lymphocytes % (Auto) 10.9 % (13.4-35.0); Mean Corpuscular HGB Conc 33 % (30-34); Mean Corpuscular Volume 88 fl (79-97); Monocytes # (Auto) 1.7 K/mm3 (0.0-0.8); Monocytes % (Auto) 13.7 % (0.0-7.3); Platelet Count 178 K/mm3 (140-440); Red Blood Count 3.18 M/mm3 (3.65-5.03); Red Cell Distribution Width 16.1 % (13.2-15.2)
--- NOTE | 2021-11-28 13:09 | XRay Report ---
Left foot 2 views INDICATION: Foot pain FINDINGS: Calcaneal spurring. A true AP with abnormal performed. No displaced fracture is definitely seen. Clinical correlation with point tenderness Signer Name: Michale Flaherty MD Signed: 11/28/2021 1:05 PM Workstation Name: [id number]
--- NOTE | 2021-11-28 13:09 | XRay Report ---
Left tibia and fibula 4 views INDICATION: Pain FINDINGS: Tricompartmental degenerative change of the left knee. Tibia and fibula shafts appear sameer l. No acute fractures seen. There may be mild diffuse soft tissue swelling Signer Name: Michael Flaherty MD Signed: 11/28/2021 1:04 PM Workstation Name: [id number]
[2021-11-28] MEDS: GABAPENTIN 100 MG CAP PO SCH ×2 (14:40→21:22)
--- NOTE | 2021-11-28 14:55 | Vascular Lab Report ---
DUPLEX DOPPLER LOWER EXTREMITY VEINS, BILATERAL INDICATION / CLINICAL INFORMATION: dvt. reassess. inability to anticoagulate.. TECHNIQUE: Duplex doppler imaging was performed through the veins of both lower extremities using karely ous compression and other maneuvers. COMPARISON: Bilateral lower extremity venous Doppler 11/13/2021. FINDINGS: RIGHT COMMON FEMORAL VEIN: Near occlusive thrombus RIGHT FEMORAL VEIN: Near occlusive thrombus RIGHT POPLITEAL VEIN: Occlusive thrombus. RIGHT CALF VEINS: Occlusive thrombus within the peroneal veins. LEFT COMMON FEMORAL VEIN: Occlusive thrombus LEFT FEMORAL VEIN: Occlusive thrombus LEFT POPLITEAL VEIN: Occlusive thrombus LEFT CALF VEINS: Occlusive thrombus ADDITIONAL FINDINGS: Occlusive thrombus within the left external iliac vein. IMPRESSION: 1. Worsening DVT bilaterally, now with near occlusive to occlusive thrombus throughout both lower ext remities. The results were communicated by the conduit reamer operator to Stephanie SAAVEDRA) at 11:15. Scribed by: Susie Marie RDMS, GIOVANNI, JOSEPH Scribed: 11/28/2021 1:17 PM I have reviewed the images, agree with this report, and edited this report as needed. Signer Name: Kali Lofton MD Signed: 11/28/2021 2:50 PM Workstation Name: [email or web address]
[2021-11-28] MEDS: MORPHINE 2 MG/1 ML INJ IV PRN (16:09)
--- NOTE | 2021-11-28 16:52 | Progress Note ---
Assessment and Plan 66-year-old female with multiple medical issues including spontaneous left retroperitoneal hemorrhage requiring cessation of anticoagulation. Ultimately IVC filter was placed, but patient's DVTs continue to propagate. There are now extensive bilateral lower extremity DVTs. Recommend attempting heparin drip. Risks, benefits, and alternatives discussed with patient's daughter who agreed with heparin initiation. Starting low intensity drip. If tolerates, recommend transition to standard intensity drip. If tolerates that, then can be transition to Eliquis. Subjective Date of service: 11/28/21 Principal diagnosis: AHRF; Cardiac arrest; R. pneumothorax; pneumonia; AMS; DVT's; SIERRA; Obesity Interval history: Complaining of left leg sciatica, left calf heaviness and tightness, and no issues on the right side. DVT has further propagated on ultrasound. Discussed with family and Dr. Rice that patient will likely require some element of anticoagulation. Risk, benefits, and alternatives discussed with family who agreed with anticoagulation. Objective - Constitutional Vitals: Vital Signs - 12hr 11/28/21 11/28/21 11/28/21 06:06 08:24 10:00 Temperature Pulse Rate 75 Respiratory Rate Blood Pressure 115/67 O2 Sat by Pulse 98 94 Oximetry 11/28/21 11/28/21 11/28/21 10:27 11:27 16:32 Temperature 98.8 F 99.4 F Pulse Rate 87 75 Respiratory 17 19 Rate Blood Pressure 108/61 90/58 109/67 O2 Sat by Pulse 98 100 Oximetry - EENT Eyes: EOM intact ENT: hearing intact - Respiratory Respiratory effort: normal Extremities: pulses intact, normal temperature, normal color Extremity abnormal: edema (2+ edema of the right lower extremity, with 3+ edema of the left lower extremity) - Gastrointestinal General gastrointestinal: Present: soft, non-tender - Labs CBC & Chem 7: 11/28/21 11:56 11/24/21 07:19 Labs: Abnormal lab results 11/27/21 11/28/21 11/28/21 Range/Units 21:35 07:54 11:27 WBC (4.5-11.0) K/mm3 RBC (3.65-5.03) M/mm3 Hgb (10.1-14.3) gm/dl Hct (30.3-42.9) % RDW (13.2-15.2) % Lymph % (Auto) (13.4-35.0) % Young % (Auto) (0.0-7.3) % Young # (Auto) (0.0-0.8) K/mm3 Seg Neutrophils % (40.0-70.0) % Seg Neutrophils # (1.8-7.7) K/mm3 POC Glucose 131 H 124 H 131 H (70-105) mg/dL 11/28/21 11/28/21 Range/Units 11:56 16:34 WBC 12.3 H (4.5-11.0) K/mm3 RBC 3.18 L (3.65-5.03) M/mm3 Hgb 9.2 L (10.1-14.3) gm/dl Hct 27.8 L (30.3-42.9) % RDW 16.1 H (13.2-15.2) % Lymph % (Auto) 10.9 L (13.4-35.0) % Young % (Auto) 13.7 H (0.0-7.3) % Young # (Auto) 1.7 H (0.0-0.8) K/mm3 Seg Neutrophils % 72.2 H (40.0-70.0) % Seg Neutrophils # 8.9 H (1.8-7.7) K/mm3 POC Glucose 123 H (70-105) mg/dL Medications & Allergies - Medications Allergies/Adverse Reactions: Allergies No Known Allergies Allergy (Verified 10/29/21 14:01) Home Medications: Home Medications Medication Instructions Recorded Confirmed Last Taken Type Unobtainable 11/10/21 11/10/21 Unknown History Active Medications: Generic Name Dose Route Start Last Admin Trade Name Freq PRN Reason Stop Dose Admin Acetaminophen 650 mg 10/29/21 17:04 11/12/21 22:53 Acetaminophen 650 Mg Rect Supp [place] 650 mg Q6H PRN Administration Pain MILD(1-3)/Fever >100.5/NIEVES Acetaminophen 650 mg 11/19/21 16:35 11/27/21 11:23 Acetaminophen 325 Mg Tab PO 650 mg Q6HR PRN Administration PAIN Alprazolam 0.25 mg 11/14/21 14:29 11/27/21 11:24 Alprazolam 0.25 Mg Tab PO 0.25 mg Q8H PRN Administration Anxiety Dextrose 0 ml 11/04/21 13:48 11/12/21 05:45 Dextrose 10% *Hypoglycemia IV 50 ml PRN PRN Administration Hypoglycemia Docusate Sodium 100 mg 11/18/21 15:00 11/28/21 10:25 Docusate Sodium 100 Mg Cap PO 100 mg BID RAMON Administration Famotidine 10 mg 11/06/21 10:00 11/28/21 10:25 Famotidine 10 Mg Tab PO 10 mg BID [facility] Administration Furosemide 20 mg 11/18/21 10:00 11/28/21 10:25 Furosemide 20 Mg/2 Ml Inj IV 20 mg BID RAMON Administration Gabapentin 100 mg 11/28/21 14:00 11/28/21 14:40 Gabapentin 100 Mg Cap PO 100 mg Q8HR [facility] Administration Hydralazine HCl 50 mg 11/22/21 22:00 11/28/21 16:39 Hydralazine 25 Mg Tab PO Not Given Q8HR [facility] Hydrophilic Ointment 1 applic 10/29/21 14:29 11/09/21 08:51 Lip Therapy Vaseline TP 1 applic Q2HR PRN Administration Dry Lips Heparin Sodium/Sodium Chloride 25,000 unit in 500 mls @ 30 mls/hr 11/28/21 17:00 Heparin/ 0.45% Nacl-25,000 Unit/500 Ml IV TITR [facility] Protocol 1,500 UNITS/HR Insulin Human Lispro 0 unit 11/25/21 22:00 11/28/21 14:41 Insulin Lispro 100 Unit/Ml SUB-Q Not Given ACHS [facility] Protocol Lactulose 20 gm 11/18/21 14:43 11/27/21 18:28 Lactulose 20 Gm/30 Ml Oral Liqd PO 20 gm Q6H PRN Administration Constipation Losartan Potassium 50 mg 11/20/21 11:00 11/28/21 10:43 Losartan 25 Mg Tab PO Not Given BID [facility] Melatonin 10 mg 11/22/21 17:31 11/27/21 21:32 Melatonin 5 Mg Tab PO 10 mg QHS PRN Administration Sleep Metoprolol Tartrate 100 mg 11/16/21 22:00 11/28/21 10:44 Metoprolol Tartrate 100 Mg Tab PO Not Given BID [facility] Morphine Sulfate 1 mg 11/28/21 15:00 11/28/21 16:09 Morphine 2 Mg/1 Ml Inj IV 1 mg Q4H PRN Administration Pain, Moderate (4-6) Multi-Ingred Cream/Lotion/Oil/Oint 1 applic 10/29/21 14:29 11/06/21 09:25 Mineral Oil/Petrolatum, White Ophth Oint 3.5 Gm OU 1 applic Q4HR PRN Administration Dry Eye(s) Oxycodone/Acetaminophen 1 tab 11/27/21 14:31 11/28/21 10:24 Oxycodone /Acetaminophen 5-325mg Tab PO 1 tab Q4H PRN Administration Pain, Moderate (4-6) Polyethylene Glycol 17 gm 11/20/21 12:47 11/25/21 08:30 Polyethylene Glycol 3350 17 Gm Powder PO 17 gm QDAY PRN Administration Constipation Senna/Docusate Sodium 1 tab 11/16/21 22:00 11/28/21 10:25 Sennosides/Docusate Sodium 8.6/50 Mg Tab PO 1 tab BID RAMON Administration Sodium Chloride 10 ml 10/29/21 22:00 11/28/21 10:25 Sodium Chloride 0.9% 10 Ml Flush Syringe IV 10 ml BID RAMON Administration Sodium Chloride 10 ml 10/29/21 17:04 Sodium Chloride 0.9% 10 Ml Flush Syringe IV PRN PRN LINE FLUSH Spironolactone 25 mg 11/10/21 10:00 11/28/21 10:25 Spironolactone 25 Mg Tab PO 25 mg QDAY RAMON Administration HEART Score - HEART Score Troponin: Troponin T 1.150 ng/mL (0.00-0.029) H* D 10/29/21 22:34
[2021-11-28] MEDS: HEPARIN/ 0.45% NACL DRIP 25,000 UNIT/500 ML BAG IV SCH ×2 (17:45→19:01)
--- NOTE | 2021-11-28 19:22 | Progress Note ---
Assessment and Plan 66 YO Female with Obesity presents to ED for evaluation. Patient is intubated and on ventilatory support . Patient was attending [facility] when the patient collapsed and lost consciousness. Witnesses began CPR. EMS was notified and upon arrival the patient was found to be in distress without perfusing cardiac rhythm. Patient initiated on ACLS protocol and subsequently intubated in the field and subsequent transported to [facility] for further care and evaluation of the aforementioned symptoms. The patient regained spontaneous ci rculation during transport. Patient seen and evaluated upon arrival and found to have acute hypoxemic respiratory failure, septic shock suspected secondary to aspiration pneumonia, metabolic acidosis, toxic metabolic encephalopathy, shock liver, and cardiac arrest with return of perfusing cardiac rhythm after initiation of ACLS protocol. Patient initiated on sepsis protocol as well as pneumonia protocol. Patient admitted to ICU. No reports of fever, chills, chest pain, palpitation, productive cough, skin rash, recent contact, known exposure to COVID-19. Patient has history of diabetes and hypertension. According to the chart review, patient has no history of smoking, alcohol or drug abuse. Patient eventually extubated. Patient transfered to Telemetry. Patient presently on 2 litres O2. O2 saturation 99%.BIPAP 18/8, Rate 14, FIO2 30% stand by in the room. Patient Obese , Sleeping No acute respiratory distress. Patient afebrile. No leukocytosis. Blood pressure 96/53, pulse 99, Respirations 19. Patient using chest vest. Chest xray done 11/18/21 reported Improving interstitial edema. Bilateral duplex study of legs 11/21/21 reported Acute occlusive thrombus is now visualized within the right peroneal veins. There is propagation of the left calf DVT into the popliteal vein on today's exam (near occlusive). Patient presently on Lasix and famotidine. According to vascular note anti coagulation contraindicated because of retroperitoneal bleed. DVT management as per vascular surgery. - Patient Problems (1) Acute hypoxemic respiratory failure Current Visit: Yes Status: Acute Plan to address problem: Patient presently on 2 litres O2. O2 saturation 99%. BIPAP 18/8, rate 14, FIO2 30% stand by in the room. According to vascular note anti coagulation contraindicated because of retroperitoneal bleed. Continue famotidine. (2) Cardiopulmonary arrest Current Visit: Yes Status: Acute Plan to address problem: S/P Resucitation to ROSC. (3) Atrial fibrillation and flutter Current Visit: Yes Status: Acute Plan to address problem: Management as per cardiology. (4) Acute metabolic encephalopathy Current Visit: Yes Status: Acute Plan to address problem: Management as per primary care. (5) Acute kidney injury Current Visit: Yes Status: Acute Plan to address problem: Management as per nephrology. (6) DVT (deep venous thrombosis) Current Visit: Yes Status: Acute Qualifiers: Affected thrombotic vein of extremity: peroneal Plan to address problem: According to vascular note anti coagulation contraindicated because of retroperitoneal bleed. Management as per vascular surgery. (7) Obesity hypoventilation syndrome Current Visit: Yes Status: Acute Plan to address problem: BIPAP during night time and prn for sleepiness and shortness of breath during day time. BIPAP 18/8, Rate 14, FIO2 30% (8) Pneumothorax, right Current Visit: Yes Status: Acute Plan to address problem: S/P chest tube placement and expansion of right lung. Subjective Date of service: 11/28/21 Principal diagnosis: AHRF; Cardiac arrest; R. pneumothorax; pneumonia; AMS; DVT's; SIERRA; Obesity Interval history: 66 YO Female with Obesity presents to ED for evaluation. Patient is intubated and on ventilatory support . Patient was attending [facility] when the patient collapsed and lost consciousness. Witnesses began CPR. EMS was notified and upon arrival the patient was found to be in distress without perfusing cardiac rhythm. Patient initiated on ACLS protocol and subsequently intubated in the field and subsequent transported to [facility] for further care and evaluation of the aforementioned symptoms. The patient regained spontaneous circulation during transport. Patient seen and evaluated upon arrival and found to have acute hypoxemic respiratory failure, septic shock suspected secondary to aspiration pneumonia, metabolic acidosis, toxic metabolic encephalopathy, shock liver, and cardiac arrest with return of perfusing cardiac rhythm after initiation of ACLS protocol. Patient initiated on sepsis protocol as well as pneumonia protocol. Patient admitted to ICU. No reports of fever, chills, chest pain, palpitation, productive cough, skin rash, recent contact, known exposure to COVID-19. Patient has history of diabetes and hypertension. According to the chart review, patient has no history of smoking, alcohol or drug abuse. Patient eventually extubated. Patient transfered to Telemetry. Patient presently on 2 litres O2. O2 saturation 99%.BIPAP 18/8, Rate 14, FIO2 30% stand by in the room. Patient Obese , Sleeping No acute respiratory distress. Patient afebrile. No leukocytosis. Blood pressure 96/53, pulse 99, Respirations 19. Patient using chest vest. Chest xray done 11/18/21 reported Improving interstitial edema. Bilateral duplex study of legs 11/21/21 reported Acute occlusive thrombus is now visualized within the right peroneal veins. There is propagation of the left calf DVT into the popliteal vein on today's exam (near occlusive). Patient presently on Lasix and famotidine. According to vascular note anti coagulation contraindicated because of retroperitoneal bleed. DVT Management as per vascular surgery. Objective Vital Signs - 12hr 11/28/21 11/28/21 11/28/21 08:24 10:00 10:27 Temperature Pulse Rate Respiratory Rate Blood Pressure 108/61 O2 Sat by Pulse 98 94 Oximetry 11/28/21 11/28/21 11:27 16:32 Temperature 98.8 F 99.4 F Pulse Rate 87 75 Respiratory 17 19 Rate Blood Pressure 90/58 109/67 O2 Sat by Pulse 98 100 Oximetry Constitutional: no acute distress, asleep, other (elderly obese female with mildly increased respiratory effort at rest ) Eyes: non-icteric ENT: oropharynx moist Neck: supple, no lymphadenopathy, no JVD, other (large circumference) Effort: mildly labored Ascultation: Bilateral: diminished breath sounds, rhonchi (scant) Percussion: Bilateral: not dull Cardiovascular: irregular rhythm, other (no R/M) Gastrointestinal: normoactive bowel sounds, soft, non-tender, other (obese) Integumentary: normal, other (Left flank ecchymosis with induration) Extremities: no cyanosis, pulses normal, no ischemia or petechiae, edema (2+) Neurologic: normal mental status, non-focal exam (grossly), pupils equal and round, motor strength normal and (weak) Psychiatric: mood appropriate, affect normal CBC and BMP: 11/29/21 13:51 11/29/21 18:50 ABG, PT/INR, D-dimer: ABG ABG pH 7.475 pH Units (7.350-7.450) H 11/11/21 13:53 ABG pCO2 45.0 mm Hg 11/11/21 13:53 ABG pO2 64.1 mm Hg (80.0-90.0) L 11/11/21 13:53 ABG O2 Saturation 96.3 % (95.0-99.0) 11/11/21 13:53 PT/INR, D-dimer PT 17.2 Sec. (12.2-14.9) H 10/30/21 16:30 INR 1.27 (0.87-1.13) H 10/30/21 16:30 D-Dimer > 58543 ng/mlDDU (0-234) H 10/30/21 Unknown Abnormal lab findings: Abnormal Labs 10/29/21 10/29/21 10/29/21 15:10 15:10 15:10 WBC 27.8 H RBC Hgb Hct MCH 27 L RDW Plt Count Lymph % (Auto) [place] % (Auto) Lymph # (Auto) [place] # (Auto) Seg Neutrophils % Seg Neuts % (Manual) 78.0 H Lymphocytes % (Manual) 10.0 L Nucleated RBC % Seg Neutrophils # Seg Neutrophils # Man 21.7 H Monocytes # (Manual) 1.4 H PT INR APTT D-Dimer Heparin Anti-Xa Level ABG pH ABG pO2 ABG HCO3 ABG O2 Saturation ABG Base Excess ABG Hemoglobin Oxyhemoglobin Sodium Potassium Chloride Carbon Dioxide BUN Creatinine Glucose POC Glucose Hemoglobin A1c Lactic Acid 6.80 H* Calcium Phosphorus Magnesium Ferritin AST ALT Alkaline Phosphatase Lactate Dehydrogenase Troponin T 0.089 H C-Reactive Protein Total Protein Albumin LDL Cholesterol Direct Urine Creatinine Urine Total Protein Salicylates Acetaminophen Crossmatch 10/29/21 10/29/21 10/29/21 15:10 15:10 15:10 WBC RBC Hgb Hct MCH RDW Plt Count Lymph % (Auto) [place] % (Auto) Lymph # (Auto) [place] # (Auto) Seg Neutrophils % Seg Neuts % (Manual) Lymphocytes % (Manual) Nucleated RBC % Seg Neutrophils # Seg Neutrophils # Man Monocytes # (Manual) PT INR APTT D-Dimer Heparin Anti-Xa Level ABG pH ABG pO2 ABG HCO3 ABG O2 Saturation ABG Base Excess ABG Hemoglobin Oxyhemoglobin Sodium 136 L Potassium 2.8 L* Chloride 93.4 L Carbon Dioxide 20 L BUN Creatinine Glucose 330 H POC Glucose Hemoglobin A1c Lactic Acid Calcium Phosphorus Magnesium Ferritin AST 1013 H ALT 1289 H Alkaline Phosphatase 246 H Lactate Dehydrogenase Troponin T C-Reactive Protein Total Protein Albumin LDL Cholesterol Direct Urine Creatinine Urine Total Protein Salicylates < 0.3 L Acetaminophen 5.0 L Crossmatch 10/29/21 10/29/21 10/29/21 15:11 16:01 19:29 WBC RBC Hgb Hct MCH RDW Plt Count Lymph % (Auto) [place] % (Auto) Lymph # (Auto) [place] # (Auto) Seg Neutrophils % Seg Neuts % (Manual) Lymphocytes % (Manual) Nucleated RBC % Seg Neutrophils # Seg Neutrophils # Man Monocytes # (Manual) PT INR APTT D-Dimer Heparin Anti-Xa Level ABG pH 7.307 L ABG pO2 64.1 L ABG HCO3 ABG O2 Saturation 90.8 L ABG Base Excess -2.9 L ABG Hemoglobin Oxyhemoglobin 89.3 L Sodium Potassium Chloride Carbon Dioxide BUN Creatinine Glucose POC Glucose Hemoglobin A1c Lactic Acid 2.60 H* Calcium Phosphorus Magnesium 2.90 H Ferritin AST ALT Alkaline Phosphatase Lactate Dehydrogenase Troponin T C-Reactive Protein Total Protein Albumin LDL Cholesterol Direct Urine Creatinine Urine Total Protein Salicylates Acetaminophen Crossmatch 10/29/21 10/29/21 10/30/21 19:40 22:34 04:30 WBC 16.2 H RBC Hgb Hct MCH 26 L RDW 15.5 H Plt Count Lymph % (Auto) 6.2 L [place] % (Auto) Lymph # (Auto) 1.0 L [place] # (Auto) 0.9 H Seg Neutrophils % 88.1 H Seg Neuts % (Manual) Lymphocytes % (Manual) Nucleated RBC % Seg Neutrophils # 14.2 H Seg Neutrophils # Man Monocytes # (Manual) PT INR APTT D-Dimer Heparin Anti-Xa Level ABG pH ABG pO2 ABG HCO3 ABG O2 Saturation ABG Base Excess ABG Hemoglobin Oxyhemoglobin Sodium Potassium Chloride Carbon Dioxide BUN Creatinine Glucose POC Glucose Hemoglobin A1c Lactic Acid Calcium Phosphorus Magnesium Ferritin AST ALT Alkaline Phosphatase Lactate Dehydrogenase Troponin T 1.950 H* D 1.150 H* D C-Reactive Protein Total Protein Albumin LDL Cholesterol Direct 43 L Urine Creatinine Urine Total Protein Salicylates Acetaminophen Crossmatch 10/30/21 10/30/21 10/30/21 04:30 04:35 05:45 WBC RBC Hgb Hct MCH RDW Plt Count Lymph % (Auto) [place] % (Auto) Lymph # (Auto) [place] # (Auto) Seg Neutrophils % Seg Neuts % (Manual) Lymphocytes % (Manual) Nucleated RBC % Seg Neutrophils # Seg Neutrophils # Man Monocytes # (Manual) PT INR APTT D-Dimer Heparin Anti-Xa Level ABG pH ABG pO2 69.5 L ABG HCO3 ABG O2 Saturation ABG Base Excess -2.7 L ABG Hemoglobin Oxyhemoglobin 94.7 L Sodium Potassium Chloride Carbon Dioxide 21 L BUN Creatinine Glucose 159 H POC Glucose 151 H Hemoglobin A1c Lactic Acid Calcium 7.9 L D Phosphorus Magnesium Ferritin AST 461 H ALT 686 H Alkaline Phosphatase 130 H Lactate Dehydrogenase Troponin T C-Reactive Protein Total Protein 5.6 L D Albumin 3.2 L LDL Cholesterol Direct Urine Creatinine Urine Total Protein Salicylates Acetaminophen Crossmatch 10/30/21 10/30/21 10/30/21 11:24 15:59 16:30 WBC RBC Hgb Hct MCH RDW Plt Count Lymph % (Auto) [place] % (Auto) Lymph # (Auto) [place] # (Auto) Seg Neutrophils % Seg Neuts % (Manual) Lymphocytes % (Manual) Nucleated RBC % Seg Neutrophils # Seg Neutrophils # Man Monocytes # (Manual) PT 17.2 H INR 1.27 H APTT 44.4 H D-Dimer Heparin Anti-Xa Level ABG pH ABG pO2 ABG HCO3 ABG O2 Saturation ABG Base Excess ABG Hemoglobin Oxyhemoglobin Sodium Potassium Chloride Carbon Dioxide BUN Creatinine Glucose POC Glucose 153 H 109 H Hemoglobin A1c Lactic Acid Calcium Phosphorus Magnesium Ferritin AST ALT Alkaline Phosphatase Lactate Dehydrogenase Troponin T C-Reactive Protein Total Protein Albumin LDL Cholesterol Direct Urine Creatinine Urine Total Protein Salicylates Acetaminophen Crossmatch 10/30/21 10/30/21 10/30/21 23:00 Unknown Unknown WBC RBC Hgb Hct MCH RDW Plt Count Lymph % (Auto) [place] % (Auto) Lymph # (Auto) [place] # (Auto) Seg Neutrophils % Seg Neuts % (Manual) Lymphocytes % (Manual) Nucleated RBC % Seg Neutrophils # Seg Neutrophils # Man Monocytes # (Manual) PT INR APTT D-Dimer > 08846 H Heparin Anti-Xa Level 0.82 H ABG pH ABG pO2 ABG HCO3 ABG O2 Saturation ABG Base Excess ABG Hemoglobin Oxyhemoglobin Sodium Potassium Chloride Carbon Dioxide BUN Creatinine Glucose POC Glucose Hemoglobin A1c Lactic Acid Calcium Phosphorus Magnesium Ferritin 208.4 H AST ALT Alkaline Phosphatase Lactate Dehydrogenase Troponin T C-Reactive Protein Total Protein Albumin LDL Cholesterol Direct Urine Creatinine Urine Total Protein Salicylates Acetaminophen Crossmatch 10/30/21 10/31/21 10/31/21 Unknown 04:30 04:30 WBC 14.4 H RBC Hgb Hct MCH 26 L RDW Plt Count Lymph % (Auto) [place] % (Auto) Lymph # (Auto) [place] # (Auto) Seg Neutrophils % Seg Neuts % (Manual) Lymphocytes % (Manual) Nucleated RBC % Seg Neutrophils # Seg Neutrophils # Man Monocytes # (Manual) PT INR APTT D-Dimer Heparin Anti-Xa Level ABG pH ABG pO2 ABG HCO3 ABG O2 Saturation ABG Base Excess ABG Hemoglobin Oxyhemoglobin Sodium Potassium 3.5 L Chloride 107.5 H Carbon Dioxide 20 L BUN 28 H Creatinine 1.7 H Glucose 113 H POC Glucose Hemoglobin A1c Lactic Acid Calcium 7.9 L Phosphorus Magnesium Ferritin AST ALT Alkaline Phosphatase Lactate Dehydrogenase 469 H Troponin T C-Reactive Protein 13.40 H Total Protein Albumin LDL Cholesterol Direct Urine Creatinine Urine Total Protein Salicylates Acetaminophen Crossmatch 10/31/21 10/31/21 10/31/21 04:30 05:11 15:30 WBC RBC Hgb Hct MCH RDW Plt Count Lymph % (Auto) [place] % (Auto) Lymph # (Auto) [place] # (Auto) Seg Neutrophils % Seg Neuts % (Manual) Lymphocytes % (Manual) Nucleated RBC % Seg Neutrophils # Seg Neutrophils # Man Monocytes # (Manual) PT INR APTT D-Dimer Heparin Anti-Xa Level ABG pH 7.222 L ABG pO2 61.5 L ABG HCO3 ABG O2 Saturation 86.2 L ABG Base Excess -6.3 L ABG Hemoglobin 11.2 L Oxyhemoglobin 84.5 L Sodium Potassium Chloride Carbon Dioxide BUN Creatinine Glucose POC Glucose 106 H Hemoglobin A1c 6.7 H Lactic Acid Calcium Phosphorus Magnesium Ferritin AST ALT Alkaline Phosphatase Lactate Dehydrogenase Troponin T C-Reactive Protein Total Protein Albumin LDL Cholesterol Direct Urine Creatinine Urine Total Protein Salicylates Acetaminophen Crossmatch 10/31/21 10/31/21 10/31/21 16:07 16:35 17:45 WBC RBC Hgb Hct MCH RDW Plt Count Lymph % (Auto) [place] % (Auto) Lymph # (Auto) [place] # (Auto) Seg Neutrophils % Seg Neuts % (Manual) Lymphocytes % (Manual) Nucleated RBC % Seg Neutrophils # Seg Neutrophils # Man Monocytes # (Manual) PT INR APTT D-Dimer Heparin Anti-Xa Level ABG pH 7.267 L ABG pO2 58.3 L ABG HCO3 ABG O2 Saturation 88.3 L ABG Base Excess -5.9 L ABG Hemoglobin 10.1 L Oxyhemoglobin 86.5 L Sodium Potassium Chloride Carbon Dioxide BUN Creatinine Glucose POC Glucose 115 H Hemoglobin A1c Lactic Acid Calcium Phosphorus Magnesium Ferritin AST ALT Alkaline Phosphatase Lactate Dehydrogenase Troponin T C-Reactive Protein Total Protein Albumin LDL Cholesterol Direct Urine Creatinine 383.6 H Urine Total Protein Salicylates Acetaminophen Crossmatch 11/01/21 11/01/21 11/01/21 00:06 05:08 06:00 WBC 12.6 H RBC 3.43 L Hgb 8.9 L Hct 28.7 L MCH 26 L RDW 15.7 H Plt Count 130 L Lymph % (Auto) [place] % (Auto) Lymph # (Auto) [place] # (Auto) Seg Neutrophils % Seg Neuts % (Manual) Lymphocytes % (Manual) Nucleated RBC % Seg Neutrophils # Seg Neutrophils # Man Monocytes # (Manual) PT INR APTT D-Dimer Heparin Anti-Xa Level ABG pH ABG pO2 ABG HCO3 ABG O2 Saturation ABG Base Excess ABG Hemoglobin Oxyhemoglobin Sodium Potassium Chloride Carbon Dioxide BUN Creatinine Glucose POC Glucose 114 H 120 H Hemoglobin A1c Lactic Acid Calcium Phosphorus Magnesium Ferritin AST ALT Alkaline Phosphatase Lactate Dehydrogenase Troponin T C-Reactive Protein Total Protein Albumin LDL Cholesterol Direct Urine Creatinine Urine Total Protein Salicylates Acetaminophen Crossmatch 11/01/21 11/01/21 11/01/21 06:00 11:43 14:00 WBC RBC Hgb Hct MCH RDW Plt Count Lymph % (Auto) [place] % (Auto) Lymph # (Auto) [place] # (Auto) Seg Neutrophils % Seg Neuts % (Manual) Lymphocytes % (Manual) Nucleated RBC % Seg Neutrophils # Seg Neutrophils # Man Monocytes # (Manual) PT INR APTT D-Dimer Heparin Anti-Xa Level ABG pH 7.349 L ABG pO2 75.6 L ABG HCO3 ABG O2 Saturation ABG Base Excess -3.9 L ABG Hemoglobin 9.8 L Oxyhemoglobin 93.5 L Sodium Potassium Chloride 114.1 H Carbon Dioxide 20 L BUN 33 H Creatinine Glucose 131 H POC Glucose 151 H Hemoglobin A1c Lactic Acid Calcium 7.7 L Phosphorus Magnesium Ferritin AST 79 H ALT 259 H Alkaline Phosphatase Lactate Dehydrogenase Troponin T C-Reactive Protein Total Protein 5.5 L Albumin 2.7 L LDL Cholesterol Direct Urine Creatinine Urine Total Protein Salicylates Acetaminophen Crossmatch 11/01/21 11/01/21 11/02/21 16:45 22:55 05:12 WBC RBC Hgb Hct MCH RDW Plt Count Lymph % (Auto) [place] % (Auto) Lymph # (Auto) [place] # (Auto) Seg Neutrophils % Seg Neuts % (Manual) Lymphocytes % (Manual) Nucleated RBC % Seg Neutrophils # Seg Neutrophils # Man Monocytes # (Manual) PT INR APTT D-Dimer Heparin Anti-Xa Level ABG pH ABG pO2 ABG HCO3 ABG O2 Saturation ABG Base Excess ABG Hemoglobin Oxyhemoglobin Sodium Potassium Chloride Carbon Dioxide BUN Creatinine Glucose POC Glucose 119 H 129 H 140 H Hemoglobin A1c Lactic Acid Calcium Phosphorus Magnesium Ferritin AST ALT Alkaline Phosphatase Lactate Dehydrogenase Troponin T C-Reactive Protein Total Protein Albumin LDL Cholesterol Direct Urine Creatinine Urine Total Protein Salicylates Acetaminophen Crossmatch 11/02/21 11/02/21 11/02/21 05:35 05:35 09:35 WBC 13.5 H RBC 3.60 L Hgb 9.7 L Hct MCH 27 L RDW 15.7 H Plt Count Lymph % (Auto) [place] % (Auto) Lymph # (Auto) [place] # (Auto) Seg Neutrophils % Seg Neuts % (Manual) Lymphocytes % (Manual) Nucleated RBC % Seg Neutrophils # Seg Neutrophils # Man Monocytes # (Manual) PT INR APTT D-Dimer Heparin Anti-Xa Level ABG pH 7.208 L ABG pO2 75.9 L ABG HCO3 ABG O2 Saturation 93.6 L ABG Base Excess -4.3 L ABG Hemoglobin 9.1 L Oxyhemoglobin 91.6 L Sodium Potassium 5.2 H D Chloride 112.6 H Carbon Dioxide BUN 32 H Creatinine Glucose 152 H POC Glucose Hemoglobin A1c Lactic Acid Calcium 8.2 L Phosphorus Magnesium 2.70 H Ferritin AST ALT Alkaline Phosphatase Lactate Dehydrogenase Troponin T C-Reactive Protein Total Protein Albumin LDL Cholesterol Direct Urine Creatinine Urine Total Protein Salicylates Acetaminophen Crossmatch 11/02/21 11/02/21 11/02/21 11:44 17:13 23:43 WBC RBC Hgb Hct MCH RDW Plt Count Lymph % (Auto) [place] % (Auto) Lymph # (Auto) [place] # (Auto) Seg Neutrophils % Seg Neuts % (Manual) Lymphocytes % (Manual) Nucleated RBC % Seg Neutrophils # Seg Neutrophils # Man Monocytes # (Manual) PT INR APTT D-Dimer Heparin Anti-Xa Level ABG pH ABG pO2 ABG HCO3 ABG O2 Saturation ABG Base Excess ABG Hemoglobin Oxyhemoglobin Sodium Potassium Chloride Carbon Dioxide BUN Creatinine Glucose POC Glucose 173 H 148 H 137 H Hemoglobin A1c Lactic Acid Calcium Phosphorus Magnesium Ferritin AST ALT Alkaline Phosphatase Lactate Dehydrogenase Troponin T C-Reactive Protein Total Protein Albumin LDL Cholesterol Direct Urine Creatinine Urine Total Protein Salicylates Acetaminophen Crossmatch 11/03/21 11/03/21 11/03/21 04:59 06:00 06:00 WBC RBC 3.43 L Hgb 9.1 L Hct 29.0 L MCH 26 L RDW 16.4 H Plt Count Lymph % (Auto) [place] % (Auto) Lymph # (Auto) [place] # (Auto) Seg Neutrophils % Seg Neuts % (Manual) Lymphocytes % (Manual) Nucleated RBC % Seg Neutrophils # Seg Neutrophils # Man Monocytes # (Manual) PT INR APTT D-Dimer Heparin Anti-Xa Level 0.17 L ABG pH ABG pO2 ABG HCO3 ABG O2 Saturation ABG Base Excess ABG Hemoglobin Oxyhemoglobin Sodium Potassium Chloride Carbon Dioxide BUN Creatinine Glucose POC Glucose 167 H Hemoglobin A1c Lactic Acid Calcium Phosphorus Magnesium Ferritin AST ALT Alkaline Phosphatase Lactate Dehydrogenase Troponin T C-Reactive Protein Total Protein Albumin LDL Cholesterol Direct Urine Creatinine Urine Total Protein Salicylates Acetaminophen Crossmatch 11/03/21 11/03/21 11/03/21 06:00 09:20 11:58 WBC RBC Hgb Hct MCH RDW Plt Count Lymph % (Auto) [place] % (Auto) Lymph # (Auto) [place] # (Auto) Seg Neutrophils % Seg Neuts % (Manual) Lymphocytes % (Manual) Nucleated RBC % Seg Neutrophils # Seg Neutrophils # Man Monocytes # (Manual) PT INR APTT D-Dimer Heparin Anti-Xa Level ABG pH 7.274 L ABG pO2 75.6 L ABG HCO3 ABG O2 Saturation 94.9 L ABG Base Excess -2.5 L ABG Hemoglobin 9.3 L Oxyhemoglobin 92.9 L Sodium 149 H Potassium Chloride 117.5 H Carbon Dioxide BUN 32 H Creatinine Glucose 173 H POC Glucose 192 H Hemoglobin A1c Lactic Acid Calcium 8.1 L Phosphorus Magnesium Ferritin AST ALT Alkaline Phosphatase Lactate Dehydrogenase Troponin T C-Reactive Protein Total Protein Albumin LDL Cholesterol Direct Urine Creatinine Urine Total Protein Salicylates Acetaminophen Crossmatch 11/03/21 11/03/21 11/04/21 18:22 Unknown 00:09 WBC RBC Hgb Hct MCH RDW Plt Count Lymph % (Auto) [place] % (Auto) Lymph # (Auto) [place] # (Auto) Seg Neutrophils % Seg Neuts % (Manual) Lymphocytes % (Manual) Nucleated RBC % Seg Neutrophils # Seg Neutrophils # Man Monocytes # (Manual) PT INR APTT D-Dimer Heparin Anti-Xa Level 0.29 L ABG pH ABG pO2 ABG HCO3 ABG O2 Saturation ABG Base Excess ABG Hemoglobin Oxyhemoglobin Sodium Potassium Chloride Carbon Dioxide BUN Creatinine Glucose POC Glucose 178 H 221 H Hemoglobin A1c Lactic Acid Calcium Phosphorus Magnesium Ferritin AST ALT Alkaline Phosphatase Lactate Dehydrogenase Troponin T C-Reactive Protein Total Protein Albumin LDL Cholesterol Direct Urine Creatinine Urine Total Protein Salicylates Acetaminophen Crossmatch 11/04/21 11/04/21 11/04/21 05:09 09:40 09:40 WBC 16.8 H RBC Hgb Hct MCH 27 L RDW 16.5 H Plt Count Lymph % (Auto) [place] % (Auto) Lymph # (Auto) [place] # (Auto) Seg Neutrophils % Seg Neuts % (Manual) Lymphocytes % (Manual) Nucleated RBC % Seg Neutrophils # Seg Neutrophils # Man Monocytes # (Manual) PT INR APTT D-Dimer Heparin Anti-Xa Level ABG pH ABG pO2 ABG HCO3 ABG O2 Saturation ABG Base Excess ABG Hemoglobin Oxyhemoglobin Sodium Potassium 5.9 H Chloride 108.5 H Carbon Dioxide BUN 54 H Creatinine 1.8 H Glucose 198 H POC Glucose 182 H Hemoglobin A1c Lactic Acid Calcium Phosphorus Magnesium 3.00 H Ferritin AST ALT Alkaline Phosphatase Lactate Dehydrogenase Troponin T C-Reactive Protein Total Protein Albumin LDL Cholesterol Direct Urine Creatinine Urine Total Protein Salicylates Acetaminophen Crossmatch 11/04/21 11/04/21 11/04/21 12:13 13:34 14:05 WBC RBC Hgb Hct MCH RDW Plt Count Lymph % (Auto) [place] % (Auto) Lymph # (Auto) [place] # (Auto) Seg Neutrophils % Seg Neuts % (Manual) Lymphocytes % (Manual) Nucleated RBC % Seg Neutrophils # Seg Neutrophils # Man Monocytes # (Manual) PT INR APTT D-Dimer Heparin Anti-Xa Level ABG pH 7.223 L ABG pO2 71.3 L ABG HCO3 ABG O2 Saturation 92.8 L ABG Base Excess ABG Hemoglobin 8.2 L Oxyhemoglobin 91.0 L Sodium Potassium Chloride Carbon Dioxide BUN Creatinine Glucose POC Glucose 184 H Hemoglobin A1c Lactic Acid Calcium Phosphorus Magnesium Ferritin AST ALT Alkaline Phosphatase Lactate Dehydrogenase Troponin T C-Reactive Protein Total Protein Albumin LDL Cholesterol Direct Urine Creatinine 184.6 H Urine Total Protein Salicylates Acetaminophen Crossmatch 11/04/21 11/04/21 11/05/21 18:02 Unknown 00:07 WBC RBC Hgb Hct MCH RDW Plt Count Lymph % (Auto) [place] % (Auto) Lymph # (Auto) [place] # (Auto) Seg Neutrophils % Seg Neuts % (Manual) Lymphocytes % (Manual) Nucleated RBC % Seg Neutrophils # Seg Neutrophils # Man Monocytes # (Manual) PT INR APTT D-Dimer Heparin Anti-Xa Level ABG pH ABG pO2 ABG HCO3 ABG O2 Saturation ABG Base Excess ABG Hemoglobin Oxyhemoglobin Sodium Potassium Chloride Carbon Dioxide BUN Creatinine Glucose POC Glucose 262 H 259 H Hemoglobin A1c Lactic Acid Calcium Phosphorus Magnesium Ferritin AST ALT Alkaline Phosphatase Lactate Dehydrogenase Troponin T C-Reactive Protein Total Protein Albumin LDL Cholesterol Direct Urine Creatinine 190.9 H Urine Total Protein 172 H Salicylates Acetaminophen Crossmatch 11/05/21 11/05/21 11/05/21 04:20 04:20 05:30 WBC 17.9 H RBC 3.64 L Hgb 9.7 L Hct MCH 27 L RDW 16.4 H Plt Count Lymph % (Auto) [place] % (Auto) Lymph # (Auto) [place] # (Auto) Seg Neutrophils % Seg Neuts % (Manual) Lymphocytes % (Manual) Nucleated RBC % Seg Neutrophils # Seg Neutrophils # Man Monocytes # (Manual) PT INR APTT D-Dimer Heparin Anti-Xa Level ABG pH ABG pO2 ABG HCO3 ABG O2 Saturation ABG Base Excess ABG Hemoglobin Oxyhemoglobin Sodium Potassium 5.6 H Chloride 108.4 H Carbon Dioxide BUN 71 H Creatinine 1.9 H Glucose 270 H POC Glucose 283 H Hemoglobin A1c Lactic Acid Calcium Phosphorus Magnesium Ferritin AST ALT Alkaline Phosphatase Lactate Dehydrogenase Troponin T C-Reactive Protein Total Protein Albumin LDL Cholesterol Direct Urine Creatinine Urine Total Protein Salicylates Acetaminophen Crossmatch 11/05/21 11/05/21 11/05/21 10:05 12:10 15:29 WBC RBC Hgb Hct MCH RDW Plt Count Lymph % (Auto) [place] % (Auto) Lymph # (Auto) [place] # (Auto) Seg Neutrophils % Seg Neuts % (Manual) Lymphocytes % (Manual) Nucleated RBC % Seg Neutrophils # Seg Neutrophils # Man Monocytes # (Manual) PT INR APTT D-Dimer Heparin Anti-Xa Level ABG pH 7.248 L ABG pO2 73.7 L ABG HCO3 26.2 H ABG O2 Saturation 93.1 L ABG Base Excess ABG Hemoglobin 8.9 L Oxyhemoglobin 91.4 L Sodium Potassium Chloride Carbon Dioxide BUN Creatinine Glucose POC Glucose 225 H 199 H Hemoglobin A1c Lactic Acid Calcium Phosphorus Magnesium Ferritin AST ALT Alkaline Phosphatase Lactate Dehydrogenase Troponin T C-Reactive Protein Total Protein Albumin LDL Cholesterol Direct Urine Creatinine Urine Total Protein Salicylates Acetaminophen Crossmatch 11/05/21 11/05/21 11/05/21 15:51 17:32 17:40 WBC RBC Hgb Hct MCH RDW Plt Count Lymph % (Auto) [place] % (Auto) Lymph # (Auto) [place] # (Auto) Seg Neutrophils % Seg Neuts % (Manual) Lymphocytes % (Manual) Nucleated RBC % Seg Neutrophils # Seg Neutrophils # Man Monocytes # (Manual) PT INR APTT D-Dimer Heparin Anti-Xa Level ABG pH ABG pO2 ABG HCO3 ABG O2 Saturation ABG Base Excess ABG Hemoglobin Oxyhemoglobin Sodium Potassium 5.2 H Chloride 107.8 H Carbon Dioxide BUN 79 H Creatinine 1.9 H Glucose 204 H POC Glucose 278 H 197 H Hemoglobin A1c Lactic Acid Calcium Phosphorus Magnesium Ferritin AST ALT Alkaline Phosphatase Lactate Dehydrogenase Troponin T C-Reactive Protein Total Protein Albumin LDL Cholesterol Direct Urine Creatinine Urine Total Protein Salicylates Acetaminophen Crossmatch 11/05/21 11/05/21 11/05/21 21:25 22:22 23:43 WBC RBC Hgb Hct MCH RDW Plt Count Lymph % (Auto) [place] % (Auto) Lymph # (Auto) [place] # (Auto) Seg Neutrophils % Seg Neuts % (Manual) Lymphocytes % (Manual) Nucleated RBC % Seg Neutrophils # Seg Neutrophils # Man Monocytes # (Manual) PT INR APTT D-Dimer Heparin Anti-Xa Level ABG pH ABG pO2 ABG HCO3 ABG O2 Saturation ABG Base Excess ABG Hemoglobin Oxyhemoglobin Sodium Potassium 5.3 H Chloride 109.2 H Carbon Dioxide BUN 81 H Creatinine 2.0 H Glucose 195 H POC Glucose 180 H 203 H Hemoglobin A1c Lactic Acid Calcium Phosphorus Magnesium Ferritin AST ALT Alkaline Phosphatase Lactate Dehydrogenase Troponin T C-Reactive Protein Total Protein Albumin LDL Cholesterol Direct Urine Creatinine Urine Total Protein Salicylates Acetaminophen Crossmatch 11/05/21 11/06/2111/06/22 Unknown 02:35 05:09 WBC RBC Hgb Hct MCH RDW Plt Count Lymph % (Auto) [place] % (Auto) Lymph # (Auto) [place] # (Auto) Seg Neutrophils % Seg Neuts % (Manual) Lymphocytes % (Manual) Nucleated RBC % Seg Neutrophils # Seg Neutrophils # Man Monocytes # (Manual) PT INR APTT D-Dimer Heparin Anti-Xa Level ABG pH ABG pO2 ABG HCO3 ABG O2 Saturation ABG Base Excess ABG Hemoglobin Oxyhemoglobin Sodium 146 H Potassium 6.0 H Chloride 108.1 H 107.1 H Carbon Dioxide 21 L BUN 80 H 84 H Creatinine 2.0 H 2.0 H Glucose 238 H 235 H POC Glucose 215 H Hemoglobin A1c Lactic Acid Calcium Phosphorus Magnesium 2.80 H Ferritin AST ALT 77 H Alkaline Phosphatase Lactate Dehydrogenase Troponin T C-Reactive Protein Total Protein Albumin 3.0 L LDL Cholesterol Direct Urine Creatinine Urine Total Protein Salicylates Acetaminophen Crossmatch 11/06/21 11/06/21 11/06/21 05:40 08:07 08:07 WBC RBC Hgb Hct MCH RDW Plt Count Lymph % (Auto) [place] % (Auto) Lymph # (Auto) [place] # (Auto) Seg Neutrophils % Seg Neuts % (Manual) Lymphocytes % (Manual) Nucleated RBC % Seg Neutrophils # Seg Neutrophils # Man Monocytes # (Manual) PT INR APTT D-Dimer Heparin Anti-Xa Level 1.24 H ABG pH 7.311 L ABG pO2 72.8 L ABG HCO3 29.7 H ABG O2 Saturation 94.1 L ABG Base Excess ABG Hemoglobin 11.4 L Oxyhemoglobin 92.3 L Sodium Potassium 5.2 H Chloride Carbon Dioxide BUN 85 H Creatinine 2.3 H Glucose 236 H POC Glucose Hemoglobin A1c Lactic Acid Calcium Phosphorus Magnesium Ferritin AST ALT Alkaline Phosphatase Lactate Dehydrogenase Troponin T C-Reactive Protein Total Protein Albumin LDL Cholesterol Direct Urine Creatinine Urine Total Protein Salicylates Acetaminophen Crossmatch 11/06/21 11/06/21 11/06/21 12:14 12:57 14:28 WBC RBC Hgb Hct MCH RDW Plt Count Lymph % (Auto) [place] % (Auto) Lymph # (Auto) [place] # (Auto) Seg Neutrophils % Seg Neuts % (Manual) Lymphocytes % (Manual) Nucleated RBC % Seg Neutrophils # Seg Neutrophils # Man Monocytes # (Manual) PT INR APTT D-Dimer Heparin Anti-Xa Level ABG pH 7.282 L ABG pO2 72.6 L ABG HCO3 30.8 H ABG O2 Saturation 93.7 L ABG Base Excess 3.2 H ABG Hemoglobin 8.6 L Oxyhemoglobin 91.8 L Sodium Potassium Chloride Carbon Dioxide BUN 91 H Creatinine 2.6 H Glucose 259 H POC Glucose 225 H Hemoglobin A1c Lactic Acid Calcium Phosphorus Magnesium Ferritin AST ALT Alkaline Phosphatase Lactate Dehydrogenase Troponin T C-Reactive Protein Total Protein Albumin LDL Cholesterol Direct Urine Creatinine Urine Total Protein Salicylates Acetaminophen Crossmatch 11/06/21 11/06/21 11/06/21 17:28 19:20 21:30 WBC RBC Hgb Hct MCH RDW Plt Count Lymph % (Auto) [place] % (Auto) Lymph # (Auto) [place] # (Auto) Seg Neutrophils % Seg Neuts % (Manual) Lymphocytes % (Manual) Nucleated RBC % Seg Neutrophils # Seg Neutrophils # Man Monocytes # (Manual) PT INR APTT D-Dimer Heparin Anti-Xa Level 0.73 H ABG pH ABG pO2 ABG HCO3 ABG O2 Saturation ABG Base Excess ABG Hemoglobin Oxyhemoglobin Sodium Potassium Chloride Carbon Dioxide BUN 95 H Creatinine 2.9 H Glucose 233 H POC Glucose 206 H Hemoglobin A1c Lactic Acid Calcium Phosphorus Magnesium Ferritin AST ALT Alkaline Phosphatase Lactate Dehydrogenase Troponin T C-Reactive Protein Total Protein Albumin LDL Cholesterol Direct Urine Creatinine Urine Total Protein Salicylates Acetaminophen Crossmatch 11/06/21 11/07/21 11/07/21 22:56 05:06 06:30 WBC RBC Hgb Hct MCH RDW Plt Count Lymph % (Auto) [place] % (Auto) Lymph # (Auto) [place] # (Auto) Seg Neutrophils % Seg Neuts % (Manual) Lymphocytes % (Manual) Nucleated RBC % Seg Neutrophils # Seg Neutrophils # Man Monocytes # (Manual) PT INR APTT D-Dimer Heparin Anti-Xa Level ABG pH ABG pO2 ABG HCO3 ABG O2 Saturation ABG Base Excess ABG Hemoglobin Oxyhemoglobin Sodium 146 H Potassium Chloride Carbon Dioxide BUN 98 H Creatinine 2.8 H Glucose 202 H POC Glucose 215 H 172 H Hemoglobin A1c Lactic Acid Calcium Phosphorus 4.90 H D Magnesium 2.90 H Ferritin AST ALT Alkaline Phosphatase Lactate Dehydrogenase Troponin T C-Reactive Protein Total Protein Albumin LDL Cholesterol Direct Urine Creatinine Urine Total Protein Salicylates Acetaminophen Crossmatch 11/07/21 11/07/21 11/07/21 06:30 11:26 12:15 WBC 16.0 H RBC 3.06 L Hgb 8.2 L Hct 26.1 L MCH 27 L RDW 16.2 H Plt Count Lymph % (Auto) [place] % (Auto) Lymph # (Auto) [place] # (Auto) Seg Neutrophils % Seg Neuts % (Manual) 77.0 H Lymphocytes % (Manual) 11.0 L Nucleated RBC % 2.0 H Seg Neutrophils # Seg Neutrophils # Man 12.3 H Monocytes # (Manual) PT INR APTT D-Dimer Heparin Anti-Xa Level ABG pH 7.298 L ABG pO2 73.0 L ABG HCO3 33.3 H ABG O2 Saturation 94.4 L ABG Base Excess 5.8 H ABG Hemoglobin 8.2 L Oxyhemoglobin 92.7 L Sodium Potassium Chloride Carbon Dioxide BUN Creatinine Glucose POC Glucose 179 H Hemoglobin A1c Lactic Acid Calcium Phosphorus Magnesium Ferritin AST ALT Alkaline Phosphatase Lactate Dehydrogenase Troponin T C-Reactive Protein Total Protein Albumin LDL Cholesterol Direct Urine Creatinine Urine Total Protein Salicylates Acetaminophen Crossmatch 11/07/21 11/07/21 11/07/21 17:57 22:16 23:49 WBC RBC Hgb Hct MCH RDW Plt Count Lymph % (Auto) [place] % (Auto) Lymph # (Auto) [place] # (Auto) Seg Neutrophils % Seg Neuts % (Manual) Lymphocytes % (Manual) Nucleated RBC % Seg Neutrophils # Seg Neutrophils # Man Monocytes # (Manual) PT INR APTT D-Dimer Heparin Anti-Xa Level ABG pH ABG pO2 ABG HCO3 ABG O2 Saturation ABG Base Excess ABG Hemoglobin Oxyhemoglobin Sodium Potassium Chloride Carbon Dioxide BUN Creatinine Glucose POC Glucose 166 H 223 H 190 H Hemoglobin A1c Lactic Acid Calcium Phosphorus Magnesium Ferritin AST ALT Alkaline Phosphatase Lactate Dehydrogenase Troponin T C-Reactive Protein Total Protein Albumin LDL Cholesterol Direct Urine Creatinine Urine Total Protein Salicylates Acetaminophen Crossmatch 11/08/21 11/08/21 11/08/21 04:20 04:20 06:16 WBC 22.1 H RBC 3.01 L Hgb 8.1 L Hct 25.6 L MCH 27 L RDW 15.4 H Plt Count Lymph % (Auto) [place] % (Auto) Lymph # (Auto) [place] # (Auto) Seg Neutrophils % Seg Neuts % (Manual) Lymphocytes % (Manual) Nucleated RBC % Seg Neutrophils # Seg Neutrophils # Man Monocytes # (Manual) PT INR APTT D-Dimer Heparin Anti-Xa Level ABG pH ABG pO2 ABG HCO3 ABG O2 Saturation ABG Base Excess ABG Hemoglobin Oxyhemoglobin Sodium 151 H Potassium 3.1 L D Chloride 107.3 H Carbon Dioxide 31 H BUN 82 H Creatinine 1.8 H Glucose 232 H POC Glucose 198 H Hemoglobin A1c Lactic Acid Calcium 8.1 L Phosphorus Magnesium Ferritin AST ALT Alkaline Phosphatase Lactate Dehydrogenase Troponin T C-Reactive Protein Total Protein Albumin LDL Cholesterol Direct Urine Creatinine Urine Total Protein Salicylates Acetaminophen Crossmatch 11/08/21 11/08/21 11/08/21 11:38 12:00 18:29 WBC RBC Hgb Hct MCH RDW Plt Count Lymph % (Auto) [place] % (Auto) Lymph # (Auto) [place] # (Auto) Seg Neutrophils % Seg Neuts % (Manual) Lymphocytes % (Manual) Nucleated RBC % Seg Neutrophils # Seg Neutrophils # Man Monocytes # (Manual) PT INR APTT D-Dimer Heparin Anti-Xa Level ABG pH ABG pO2 ABG HCO3 ABG O2 Saturation ABG Base Excess ABG Hemoglobin Oxyhemoglobin Sodium Potassium 3.0 L Chloride Carbon Dioxide BUN Creatinine Glucose POC Glucose 190 H 211 H Hemoglobin A1c Lactic Acid Calcium Phosphorus Magnesium Ferritin AST ALT Alkaline Phosphatase Lactate Dehydrogenase Troponin T C-Reactive Protein Total Protein Albumin LDL Cholesterol Direct Urine Creatinine Urine Total Protein Salicylates Acetaminophen Crossmatch 11/08/21 11/08/21 11/09/21 21:34 21:40 00:36 WBC RBC Hgb Hct MCH RDW Plt Count Lymph % (Auto) [place] % (Auto) Lymph # (Auto) [place] # (Auto) Seg Neutrophils % Seg Neuts % (Manual) Lymphocytes % (Manual) Nucleated RBC % Seg Neutrophils # Seg Neutrophils # Man Monocytes # (Manual) PT INR APTT D-Dimer Heparin Anti-Xa Level ABG pH ABG pO2 ABG HCO3 ABG O2 Saturation ABG Base Excess ABG Hemoglobin Oxyhemoglobin Sodium 148 H Potassium 2.8 L* Chloride Carbon Dioxide 31 H BUN 68 H Creatinine 1.5 H Glucose 191 H POC Glucose 194 H 140 H Hemoglobin A1c Lactic Acid Calcium 8.2 L Phosphorus Magnesium Ferritin AST ALT Alkaline Phosphatase Lactate Dehydrogenase Troponin T C-Reactive Protein Total Protein Albumin LDL Cholesterol Direct Urine Creatinine Urine Total Protein Salicylates Acetaminophen Crossmatch 11/09/21 11/09/21 11/09/21 04:51 04:51 04:51 WBC 27.6 H RBC 3.18 L Hgb 8.4 L Hct 26.6 L MCH 27 L RDW 15.3 H Plt Count Lymph % (Auto) [place] % (Auto) Lymph # (Auto) [place] # (Auto) Seg Neutrophils % Seg Neuts % (Manual) Lymphocytes % (Manual) Nucleated RBC % Seg Neutrophils # Seg Neutrophils # Man Monocytes # (Manual) PT INR APTT D-Dimer Heparin Anti-Xa Level 0.18 L ABG pH ABG pO2 ABG HCO3 ABG O2 Saturation ABG Base Excess ABG Hemoglobin Oxyhemoglobin Sodium 148 H Potassium 2.7 L* Chloride Carbon Dioxide BUN 59 H Creatinine 1.4 H Glucose 143 H POC Glucose Hemoglobin A1c Lactic Acid Calcium 8.3 L Phosphorus Magnesium Ferritin AST ALT Alkaline Phosphatase Lactate Dehydrogenase Troponin T C-Reactive Protein Total Protein Albumin LDL Cholesterol Direct Urine Creatinine Urine Total Protein Salicylates Acetaminophen Crossmatch 11/09/21 11/09/21 11/09/21 05:52 08:45 11:00 WBC RBC Hgb Hct MCH RDW Plt Count Lymph % (Auto) [place] % (Auto) Lymph # (Auto) [place] # (Auto) Seg Neutrophils % Seg Neuts % (Manual) Lymphocytes % (Manual) Nucleated RBC % Seg Neutrophils # Seg Neutrophils # Man Monocytes # (Manual) PT INR APTT D-Dimer Heparin Anti-Xa Level ABG pH ABG pO2 73.2 L ABG HCO3 33.8 H ABG O2 Saturation ABG Base Excess 8.7 H ABG Hemoglobin 8.5 L Oxyhemoglobin 94.1 L Sodium Potassium Chloride Carbon Dioxide BUN Creatinine Glucose POC Glucose 166 H 136 H Hemoglobin A1c Lactic Acid Calcium Phosphorus Magnesium Ferritin AST ALT Alkaline Phosphatase Lactate Dehydrogenase Troponin T C-Reactive Protein Total Protein Albumin LDL Cholesterol Direct Urine Creatinine Urine Total Protein Salicylates Acetaminophen Crossmatch 11/09/21 11/09/21 11/09/21 15:48 16:10 20:31 WBC RBC Hgb Hct MCH RDW Plt Count Lymph % (Auto) [place] % (Auto) Lymph # (Auto) [place] # (Auto) Seg Neutrophils % Seg Neuts % (Manual) Lymphocytes % (Manual) Nucleated RBC % Seg Neutrophils # Seg Neutrophils # Man Monocytes # (Manual) PT INR APTT D-Dimer Heparin Anti-Xa Level ABG pH ABG pO2 ABG HCO3 ABG O2 Saturation ABG Base Excess ABG Hemoglobin Oxyhemoglobin Sodium Potassium 2.8 L* Chloride Carbon Dioxide 31 H BUN 53 H Creatinine 1.3 H Glucose 208 H POC Glucose 203 H 166 H Hemoglobin A1c Lactic Acid Calcium 7.9 L Phosphorus Magnesium Ferritin AST ALT Alkaline Phosphatase Lactate Dehydrogenase Troponin T C-Reactive Protein Total Protein Albumin LDL Cholesterol Direct Urine Creatinine Urine Total Protein Salicylates Acetaminophen Crossmatch 11/09/21 11/09/21 11/09/21 21:30 23:16 Unknown WBC RBC Hgb Hct MCH RDW Plt Count Lymph % (Auto) [place] % (Auto) Lymph # (Auto) [place] # (Auto) Seg Neutrophils % Seg Neuts % (Manual) Lymphocytes % (Manual) Nucleated RBC % Seg Neutrophils # Seg Neutrophils # Man Monocytes # (Manual) PT INR APTT D-Dimer Heparin Anti-Xa Level 0.24 L ABG pH ABG pO2 ABG HCO3 ABG O2 Saturation ABG Base Excess ABG Hemoglobin Oxyhemoglobin Sodium Potassium Chloride Carbon Dioxide BUN 52 H Creatinine 1.4 H Glucose 185 H POC Glucose 172 H Hemoglobin A1c Lactic Acid Calcium 7.8 L Phosphorus Magnesium Ferritin AST ALT Alkaline Phosphatase Lactate Dehydrogenase Troponin T C-Reactive Protein Total Protein Albumin LDL Cholesterol Direct Urine Creatinine Urine Total Protein Salicylates Acetaminophen Crossmatch 11/10/21 11/10/21 11/10/21 02:00 04:17 04:17 WBC 24.5 H RBC 2.75 L Hgb 7.5 L Hct 22.9 L MCH 27 L RDW Plt Count Lymph % (Auto) [place] % (Auto) Lymph # (Auto) [place] # (Auto) Seg Neutrophils % Seg Neuts % (Manual) Lymphocytes % (Manual) Nucleated RBC % Seg Neutrophils # Seg Neutrophils # Man Monocytes # (Manual) PT INR APTT D-Dimer Heparin Anti-Xa Level 0.26 L ABG pH ABG pO2 ABG HCO3 ABG O2 Saturation ABG Base Excess ABG Hemoglobin Oxyhemoglobin Sodium Potassium 2.9 L* Chloride Carbon Dioxide 35 H BUN 48 H Creatinine Glucose 212 H POC Glucose Hemoglobin A1c Lactic Acid Calcium 8.1 L Phosphorus Magnesium Ferritin AST ALT Alkaline Phosphatase Lactate Dehydrogenase Troponin T C-Reactive Protein Total Protein Albumin LDL Cholesterol Direct Urine Creatinine Urine Total Protein Salicylates Acetaminophen Crossmatch 11/10/21 11/10/21 11/10/21 05:01 08:39 11:03 WBC RBC Hgb Hct MCH RDW Plt Count Lymph % (Auto) [place] % (Auto) Lymph # (Auto) [place] # (Auto) Seg Neutrophils % Seg Neuts % (Manual) Lymphocytes % (Manual) Nucleated RBC % Seg Neutrophils # Seg Neutrophils # Man Monocytes # (Manual) PT INR APTT D-Dimer Heparin Anti-Xa Level 0.12 L ABG pH ABG pO2 ABG HCO3 ABG O2 Saturation ABG Base Excess ABG Hemoglobin Oxyhemoglobin Sodium Potassium Chloride Carbon Dioxide BUN Creatinine Glucose POC Glucose 203 H 152 H Hemoglobin A1c Lactic Acid Calcium Phosphorus Magnesium Ferritin AST ALT Alkaline Phosphatase Lactate Dehydrogenase Troponin T C-Reactive Protein Total Protein Albumin LDL Cholesterol Direct Urine Creatinine Urine Total Protein Salicylates Acetaminophen Crossmatch 11/10/21 11/10/21 11/10/21 12:45 15:43 21:05 WBC RBC Hgb Hct MCH RDW Plt Count Lymph % (Auto) [place] % (Auto) Lymph # (Auto) [place] # (Auto) Seg Neutrophils % Seg Neuts % (Manual) Lymphocytes % (Manual) Nucleated RBC % Seg Neutrophils # Seg Neutrophils # Man Monocytes # (Manual) PT INR APTT D-Dimer Heparin Anti-Xa Level ABG pH ABG pO2 ABG HCO3 ABG O2 Saturation ABG Base Excess ABG Hemoglobin Oxyhemoglobin Sodium 146 H Potassium 3.3 L Chloride Carbon Dioxide 31 H BUN 43 H Creatinine Glucose 155 H POC Glucose 139 H 139 H Hemoglobin A1c Lactic Acid Calcium 8.3 L Phosphorus Magnesium Ferritin AST ALT Alkaline Phosphatase Lactate Dehydrogenase Troponin T C-Reactive Protein Total Protein Albumin LDL Cholesterol Direct Urine Creatinine Urine Total Protein Salicylates Acetaminophen Crossmatch 11/10/21 11/11/21 11/11/21 23:25 03:49 03:49 WBC 22.1 H RBC 2.69 L Hgb 7.2 L Hct 22.7 L MCH 27 L RDW Plt Count Lymph % (Auto) [place] % (Auto) Lymph # (Auto) [place] # (Auto) Seg Neutrophils % Seg Neuts % (Manual) Lymphocytes % (Manual) Nucleated RBC % Seg Neutrophils # Seg Neutrophils # Man Monocytes # (Manual) PT INR APTT D-Dimer Heparin Anti-Xa Level ABG pH ABG pO2 ABG HCO3 ABG O2 Saturation ABG Base Excess ABG Hemoglobin Oxyhemoglobin Sodium Potassium Chloride Carbon Dioxide 32 H BUN 44 H Creatinine 1.3 H Glucose 173 H POC Glucose 146 H Hemoglobin A1c Lactic Acid Calcium Phosphorus Magnesium Ferritin AST ALT Alkaline Phosphatase Lactate Dehydrogenase Troponin T C-Reactive Protein Total Protein Albumin LDL Cholesterol Direct Urine Creatinine Urine Total Protein Salicylates Acetaminophen Crossmatch 11/11/21 11/11/21 11/11/21 05:03 10:50 11:32 WBC RBC Hgb Hct MCH RDW Plt Count Lymph % (Auto) [place] % (Auto) Lymph # (Auto) [place] # (Auto) Seg Neutrophils % Seg Neuts % (Manual) Lymphocytes % (Manual) Nucleated RBC % Seg Neutrophils # Seg Neutrophils # Man Monocytes # (Manual) PT INR APTT D-Dimer Heparin Anti-Xa Level ABG pH ABG pO2 ABG HCO3 ABG O2 Saturation ABG Base Excess ABG Hemoglobin Oxyhemoglobin Sodium Potassium Chloride Carbon Dioxide BUN Creatinine Glucose POC Glucose 152 H 129 H 133 H Hemoglobin A1c Lactic Acid Calcium Phosphorus Magnesium Ferritin AST ALT Alkaline Phosphatase Lactate Dehydrogenase Troponin T C-Reactive Protein Total Protein Albumin LDL Cholesterol Direct Urine Creatinine Urine Total Protein Salicylates Acetaminophen Crossmatch 11/11/21 11/11/21 11/11/21 13:53 16:31 17:13 WBC RBC Hgb Hct MCH RDW Plt Count Lymph % (Auto) [place] % (Auto) Lymph # (Auto) [place] # (Auto) Seg Neutrophils % Seg Neuts % (Manual) Lymphocytes % (Manual) Nucleated RBC % Seg Neutrophils # Seg Neutrophils # Man Monocytes # (Manual) PT INR APTT D-Dimer Heparin Anti-Xa Level ABG pH 7.475 H ABG pO2 64.1 L ABG HCO3 32.4 H ABG O2 Saturation ABG Base Excess 8.0 H ABG Hemoglobin 7.6 L Oxyhemoglobin 94.0 L Sodium Potassium Chloride Carbon Dioxide BUN Creatinine Glucose POC Glucose 116 H 125 H Hemoglobin A1c Lactic Acid Calcium Phosphorus Magnesium Ferritin AST ALT Alkaline Phosphatase Lactate Dehydrogenase Troponin T C-Reactive Protein Total Protein Albumin LDL Cholesterol Direct Urine Creatinine Urine Total Protein Salicylates Acetaminophen Crossmatch 11/11/21 11/11/21 11/12/21 20:40 23:35 03:30 WBC 17.7 H RBC 2.37 L Hgb 6.3 L Hct 20.0 L MCH 27 L RDW 15.5 H Plt Count Lymph % (Auto) [place] % (Auto) Lymph # (Auto) [place] # (Auto) Seg Neutrophils % Seg Neuts % (Manual) Lymphocytes % (Manual) Nucleated RBC % Seg Neutrophils # Seg Neutrophils # Man Monocytes # (Manual) PT INR APTT D-Dimer Heparin Anti-Xa Level 0.26 L ABG pH ABG pO2 ABG HCO3 ABG O2 Saturation ABG Base Excess ABG Hemoglobin Oxyhemoglobin Sodium Potassium Chloride Carbon Dioxide BUN Creatinine Glucose POC Glucose 118 H Hemoglobin A1c Lactic Acid Calcium Phosphorus Magnesium Ferritin AST ALT Alkaline Phosphatase Lactate Dehydrogenase Troponin T C-Reactive Protein Total Protein Albumin LDL Cholesterol Direct Urine Creatinine Urine Total Protein Salicylates Acetaminophen Crossmatch 11/12/21 11/12/21 11/12/21 03:30 04:15 11:53 WBC RBC Hgb Hct MCH RDW Plt Count Lymph % (Auto) [place] % (Auto) Lymph # (Auto) [place] # (Auto) Seg Neutrophils % Seg Neuts % (Manual) Lymphocytes % (Manual) Nucleated RBC % Seg Neutrophils # Seg Neutrophils # Man Monocytes # (Manual) PT INR APTT D-Dimer Heparin Anti-Xa Level ABG pH ABG pO2 ABG HCO3 ABG O2 Saturation ABG Base Excess ABG Hemoglobin Oxyhemoglobin Sodium Potassium Chloride Carbon Dioxide 33 H BUN 38 H Creatinine 1.3 H Glucose 102 H POC Glucose 62 L Hemoglobin A1c Lactic Acid Calcium 8.2 L Phosphorus Magnesium Ferritin AST ALT Alkaline Phosphatase Lactate Dehydrogenase Troponin T C-Reactive Protein Total Protein Albumin LDL Cholesterol Direct Urine Creatinine Urine Total Protein Salicylates Acetaminophen Crossmatch See Detail 11/12/21 11/12/21 11/12/21 17:20 19:14 23:11 WBC RBC Hgb 6.2 L Hct 19.5 L* MCH RDW Plt Count Lymph % (Auto) [place] % (Auto) Lymph # (Auto) [place] # (Auto) Seg Neutrophils % Seg Neuts % (Manual) Lymphocytes % (Manual) Nucleated RBC % Seg Neutrophils # Seg Neutrophils # Man Monocytes # (Manual) PT INR APTT D-Dimer Heparin Anti-Xa Level ABG pH ABG pO2 ABG HCO3 ABG O2 Saturation ABG Base Excess ABG Hemoglobin Oxyhemoglobin Sodium Potassium Chloride Carbon Dioxide BUN Creatinine Glucose POC Glucose 115 H 131 H Hemoglobin A1c Lactic Acid Calcium Phosphorus Magnesium Ferritin AST ALT Alkaline Phosphatase Lactate Dehydrogenase Troponin T C-Reactive Protein Total Protein Albumin LDL Cholesterol Direct Urine Creatinine Urine Total Protein Salicylates Acetaminophen Crossmatch 11/13/21 11/13/21 11/13/21 00:13 04:17 04:17 WBC 23.8 H RBC 2.84 L Hgb 7.4 L 7.8 L Hct 23.3 L 24.9 L MCH 27 L RDW 15.4 H Plt Count Lymph % (Auto) [place] % (Auto) Lymph # (Auto) [place] # (Auto) Seg Neutrophils % Seg Neuts % (Manual) Lymphocytes % (Manual) Nucleated RBC % Seg Neutrophils # Seg Neutrophils # Man Monocytes # (Manual) PT INR APTT D-Dimer Heparin Anti-Xa Level ABG pH ABG pO2 ABG HCO3 ABG O2 Saturation ABG Base Excess ABG Hemoglobin Oxyhemoglobin Sodium 146 H Potassium Chloride Carbon Dioxide BUN 44 H Creatinine 1.6 H Glucose 144 H POC Glucose Hemoglobin A1c Lactic Acid Calcium 7.9 L Phosphorus 5.10 H D Magnesium Ferritin AST ALT Alkaline Phosphatase Lactate Dehydrogenase Troponin T C-Reactive Protein Total Protein Albumin LDL Cholesterol Direct Urine Creatinine Urine Total Protein Salicylates Acetaminophen Crossmatch 11/13/21 11/13/21 11/13/21 05:52 10:54 15:57 WBC RBC Hgb Hct MCH RDW Plt Count Lymph % (Auto) [place] % (Auto) Lymph # (Auto) [place] # (Auto) Seg Neutrophils % Seg Neuts % (Manual) Lymphocytes % (Manual) Nucleated RBC % Seg Neutrophils # Seg Neutrophils # Man Monocytes # (Manual) PT INR APTT D-Dimer Heparin Anti-Xa Level ABG pH ABG pO2 ABG HCO3 ABG O2 Saturation ABG Base Excess ABG Hemoglobin Oxyhemoglobin Sodium Potassium Chloride Carbon Dioxide BUN Creatinine Glucose POC Glucose 123 H 147 H 207 H Hemoglobin A1c Lactic Acid Calcium Phosphorus Magnesium Ferritin AST ALT Alkaline Phosphatase Lactate Dehydrogenase Troponin T C-Reactive Protein Total Protein Albumin LDL Cholesterol Direct Urine Creatinine Urine Total Protein Salicylates Acetaminophen Crossmatch 11/13/21 11/13/21 11/14/21 16:01 23:18 04:55 WBC 23.9 H RBC 2.86 L Hgb 6.5 L 8.3 L Hct 20.3 L 24.5 L MCH RDW Plt Count Lymph % (Auto) [place] % (Auto) Lymph # (Auto) [place] # (Auto) Seg Neutrophils % Seg Neuts % (Manual) Lymphocytes % (Manual) Nucleated RBC % Seg Neutrophils # Seg Neutrophils # Man Monocytes # (Manual) PT INR APTT D-Dimer Heparin Anti-Xa Level ABG pH ABG pO2 ABG HCO3 ABG O2 Saturation ABG Base Excess ABG Hemoglobin Oxyhemoglobin Sodium Potassium Chloride Carbon Dioxide BUN Creatinine Glucose POC Glucose 209 H Hemoglobin A1c Lactic Acid Calcium Phosphorus Magnesium Ferritin AST ALT Alkaline Phosphatase Lactate Dehydrogenase Troponin T C-Reactive Protein Total Protein Albumin LDL Cholesterol Direct Urine Creatinine Urine Total Protein Salicylates Acetaminophen Crossmatch 11/14/21 11/14/21 11/14/21 04:55 05:09 11:35 WBC RBC Hgb Hct MCH RDW Plt Count Lymph % (Auto) [place] % (Auto) Lymph # (Auto) [place] # (Auto) Seg Neutrophils % Seg Neuts % (Manual) Lymphocytes % (Manual) Nucleated RBC % Seg Neutrophils # Seg Neutrophils # Man Monocytes # (Manual) PT INR APTT D-Dimer Heparin Anti-Xa Level ABG pH ABG pO2 ABG HCO3 ABG O2 Saturation ABG Base Excess ABG Hemoglobin Oxyhemoglobin Sodium 148 H Potassium Chloride 109.0 H Carbon Dioxide BUN 42 H Creatinine 1.6 H Glucose 184 H POC Glucose 169 H 154 H Hemoglobin A1c Lactic Acid Calcium 8.0 L Phosphorus Magnesium Ferritin AST ALT Alkaline Phosphatase Lactate Dehydrogenase Troponin T C-Reactive Protein Total Protein Albumin LDL Cholesterol Direct Urine Creatinine Urine Total Protein Salicylates Acetaminophen Crossmatch 11/14/21 11/14/21 11/15/21 16:57 23:11 04:36 WBC RBC Hgb Hct MCH RDW Plt Count Lymph % (Auto) [place] % (Auto) Lymph # (Auto) [place] # (Auto) Seg Neutrophils % Seg Neuts % (Manual) Lymphocytes % (Manual) Nucleated RBC % Seg Neutrophils # Seg Neutrophils # Man Monocytes # (Manual) PT INR APTT D-Dimer Heparin Anti-Xa Level ABG pH ABG pO2 ABG HCO3 ABG O2 Saturation ABG Base Excess ABG Hemoglobin Oxyhemoglobin Sodium 151 H Potassium Chloride 111.2 H Carbon Dioxide BUN 36 H Creatinine 1.3 H Glucose 136 H POC Glucose 124 H 118 H Hemoglobin A1c Lactic Acid Calcium 8.1 L Phosphorus Magnesium Ferritin AST ALT Alkaline Phosphatase Lactate Dehydrogenase Troponin T C-Reactive Protein Total Protein Albumin LDL Cholesterol Direct Urine Creatinine Urine Total Protein Salicylates Acetaminophen Crossmatch 11/15/21 11/15/21 11/16/21 11:18 21:49 00:15 WBC RBC Hgb Hct MCH RDW Plt Count Lymph % (Auto) [place] % (Auto) Lymph # (Auto) [place] # (Auto) Seg Neutrophils % Seg Neuts % (Manual) Lymphocytes % (Manual) Nucleated RBC % Seg Neutrophils # Seg Neutrophils # Man Monocytes # (Manual) PT INR APTT D-Dimer Heparin Anti-Xa Level ABG pH ABG pO2 ABG HCO3 ABG O2 Saturation ABG Base Excess ABG Hemoglobin Oxyhemoglobin Sodium Potassium Chloride Carbon Dioxide BUN Creatinine Glucose POC Glucose 154 H 154 H 146 H Hemoglobin A1c Lactic Acid Calcium Phosphorus Magnesium Ferritin AST ALT Alkaline Phosphatase Lactate Dehydrogenase Troponin T C-Reactive Protein Total Protein Albumin LDL Cholesterol Direct Urine Creatinine Urine Total Protein Salicylates Acetaminophen Crossmatch 11/16/21 11/16/21 11/16/21 05:11 05:11 05:37 WBC 18.2 H RBC 2.92 L Hgb 8.3 L Hct 26.1 L MCH RDW 15.8 H Plt Count Lymph % (Auto) 6.3 L [place] % (Auto) 10.2 H Lymph # (Auto) [place] # (Auto) 1.9 H Seg Neutrophils % 81.7 H Seg Neuts % (Manual) Lymphocytes % (Manual) Nucleated RBC % Seg Neutrophils # 14.9 H Seg Neutrophils # Man Monocytes # (Manual) PT INR APTT D-Dimer Heparin Anti-Xa Level ABG pH ABG pO2 ABG HCO3 ABG O2 Saturation ABG Base Excess ABG Hemoglobin Oxyhemoglobin Sodium 146 H Potassium Chloride 108.0 H Carbon Dioxide BUN 25 H Creatinine Glucose 123 H POC Glucose 109 H Hemoglobin A1c Lactic Acid Calcium 7.8 L Phosphorus Magnesium Ferritin AST ALT Alkaline Phosphatase Lactate Dehydrogenase Troponin T C-Reactive Protein Total Protein Albumin LDL Cholesterol Direct Urine Creatinine Urine Total Protein Salicylates Acetaminophen Crossmatch 11/16/21 11/16/21 11/17/21 11:22 23:55 04:33 WBC RBC Hgb Hct MCH RDW Plt Count Lymph % (Auto) [place] % (Auto) Lymph # (Auto) [place] # (Auto) Seg Neutrophils % Seg Neuts % (Manual) Lymphocytes % (Manual) Nucleated RBC % Seg Neutrophils # Seg Neutrophils # Man Monocytes # (Manual) PT INR APTT D-Dimer Heparin Anti-Xa Level ABG pH ABG pO2 ABG HCO3 ABG O2 Saturation ABG Base Excess ABG Hemoglobin Oxyhemoglobin Sodium Potassium Chloride Carbon Dioxide BUN 20 H Creatinine Glucose POC Glucose 136 H 113 H Hemoglobin A1c Lactic Acid Calcium 7.5 L Phosphorus Magnesium Ferritin AST ALT Alkaline Phosphatase Lactate Dehydrogenase Troponin T C-Reactive Protein Total Protein Albumin LDL Cholesterol Direct Urine Creatinine Urine Total Protein Salicylates Acetaminophen Crossmatch 11/17/21 11/18/21 11/18/21 23:22 04:53 04:53 WBC 13.0 H RBC 2.99 L Hgb 8.5 L Hct 26.4 L MCH RDW Plt Count Lymph % (Auto) 9.5 L [place] % (Auto) 9.8 H Lymph # (Auto) [place] # (Auto) 1.3 H Seg Neutrophils % 78.3 H Seg Neuts % (Manual) Lymphocytes % (Manual) Nucleated RBC % Seg Neutrophils # 10.2 H Seg Neutrophils # Man Monocytes # (Manual) PT INR APTT D-Dimer Heparin Anti-Xa Level ABG pH ABG pO2 ABG HCO3 ABG O2 Saturation ABG Base Excess ABG Hemoglobin Oxyhemoglobin Sodium Potassium Chloride Carbon Dioxide BUN 18 H Creatinine Glucose 106 H POC Glucose 112 H Hemoglobin A1c Lactic Acid Calcium 8.1 L Phosphorus Magnesium Ferritin AST ALT Alkaline Phosphatase Lactate Dehydrogenase Troponin T C-Reactive Protein Total Protein Albumin LDL Cholesterol Direct Urine Creatinine Urine Total Protein Salicylates Acetaminophen Crossmatch 11/18/21 11/18/21 11/19/21 11:35 17:42 14:38 WBC RBC Hgb Hct MCH RDW Plt Count Lymph % (Auto) [place] % (Auto) Lymph # (Auto) [place] # (Auto) Seg Neutrophils % Seg Neuts % (Manual) Lymphocytes % (Manual) Nucleated RBC % Seg Neutrophils # Seg Neutrophils # Man Monocytes # (Manual) PT INR APTT D-Dimer Heparin Anti-Xa Level ABG pH ABG pO2 ABG HCO3 ABG O2 Saturation ABG Base Excess ABG Hemoglobin Oxyhemoglobin Sodium Potassium Chloride 97.5 L Carbon Dioxide 31 H BUN Creatinine Glucose 146 H POC Glucose 143 H 132 H Hemoglobin A1c Lactic Acid Calcium Phosphorus Magnesium 1.60 L Ferritin AST ALT Alkaline Phosphatase Lactate Dehydrogenase Troponin T C-Reactive Protein Total Protein Albumin LDL Cholesterol Direct Urine Creatinine Urine Total Protein Salicylates Acetaminophen Crossmatch 11/19/21 11/19/21 11/20/21 16:24 23:58 07:42 WBC RBC 3.01 L Hgb 8.6 L Hct 26.7 L MCH RDW 15.4 H Plt Count Lymph % (Auto) [place] % (Auto) Lymph # (Auto) [place] # (Auto) Seg Neutrophils % Seg Neuts % (Manual) Lymphocytes % (Manual) Nucleated RBC % Seg Neutrophils # Seg Neutrophils # Man Monocytes # (Manual) PT INR APTT D-Dimer Heparin Anti-Xa Level ABG pH ABG pO2 ABG HCO3 ABG O2 Saturation ABG Base Excess ABG Hemoglobin Oxyhemoglobin Sodium Potassium Chloride Carbon Dioxide BUN Creatinine Glucose POC Glucose 129 H 125 H Hemoglobin A1c Lactic Acid Calcium Phosphorus Magnesium Ferritin AST ALT Alkaline Phosphatase Lactate Dehydrogenase Troponin T C-Reactive Protein Total Protein Albumin LDL Cholesterol Direct Urine Creatinine Urine Total Protein Salicylates Acetaminophen Crossmatch 11/20/21 11/20/21 11/20/21 07:42 11:25 22:59 WBC RBC Hgb Hct MCH RDW Plt Count Lymph % (Auto) [place] % (Auto) Lymph # (Auto) [place] # (Auto) Seg Neutrophils % Seg Neuts % (Manual) Lymphocytes % (Manual) Nucleated RBC % Seg Neutrophils # Seg Neutrophils # Man Monocytes # (Manual) PT INR APTT D-Dimer Heparin Anti-Xa Level ABG pH ABG pO2 ABG HCO3 ABG O2 Saturation ABG Base Excess ABG Hemoglobin Oxyhemoglobin Sodium Potassium Chloride Carbon Dioxide 31 H BUN Creatinine Glucose POC Glucose 116 H 113 H Hemoglobin A1c Lactic Acid Calcium Phosphorus Magnesium Ferritin AST ALT Alkaline Phosphatase Lactate Dehydrogenase Troponin T C-Reactive Protein Total Protein Albumin LDL Cholesterol Direct Urine Creatinine Urine Total Protein Salicylates Acetaminophen Crossmatch 11/21/21 11/22/21 11/22/21 10:50 05:10 16:12 WBC RBC Hgb Hct MCH RDW Plt Count Lymph % (Auto) [place] % (Auto) Lymph # (Auto) [place] # (Auto) Seg Neutrophils % Seg Neuts % (Manual) Lymphocytes % (Manual) Nucleated RBC % Seg Neutrophils # Seg Neutrophils # Man Monocytes # (Manual) PT INR APTT D-Dimer Heparin Anti-Xa Level ABG pH ABG pO2 ABG HCO3 ABG O2 Saturation ABG Base Excess ABG Hemoglobin Oxyhemoglobin Sodium Potassium Chloride Carbon Dioxide 32 H BUN Creatinine Glucose POC Glucose 156 H 110 H Hemoglobin A1c Lactic Acid Calcium 8.1 L Phosphorus Magnesium Ferritin AST ALT Alkaline Phosphatase Lactate Dehydrogenase Troponin T C-Reactive Protein Total Protein Albumin LDL Cholesterol Direct Urine Creatinine Urine Total Protein Salicylates Acetaminophen Crossmatch 11/23/21 11/23/21 11/23/21 07:18 07:18 11:45 WBC RBC 3.23 L Hgb 9.1 L Hct 28.5 L MCH RDW 15.6 H Plt Count Lymph % (Auto) [place] % (Auto) Lymph # (Auto) [place] # (Auto) Seg Neutrophils % Seg Neuts % (Manual) Lymphocytes % (Manual) Nucleated RBC % Seg Neutrophils # Seg Neutrophils # Man Monocytes # (Manual) PT INR APTT D-Dimer Heparin Anti-Xa Level ABG pH ABG pO2 ABG HCO3 ABG O2 Saturation ABG Base Excess ABG Hemoglobin Oxyhemoglobin Sodium Potassium 3.3 L Chloride 96.8 L Carbon Dioxide 32 H BUN Creatinine Glucose POC Glucose 140 H Hemoglobin A1c Lactic Acid Calcium Phosphorus Magnesium Ferritin AST ALT Alkaline Phosphatase Lactate Dehydrogenase Troponin T C-Reactive Protein Total Protein Albumin LDL Cholesterol Direct Urine Creatinine Urine Total Protein Salicylates Acetaminophen Crossmatch 11/23/21 11/23/21 11/24/21 16:40 23:45 07:19 WBC RBC 3.12 L Hgb 9.3 L Hct 27.2 L MCH RDW 16.0 H Plt Count Lymph % (Auto) 10.3 L [place] % (Auto) 10.0 H Lymph # (Auto) 1.1 L [place] # (Auto) 1.1 H Seg Neutrophils % 75.2 H Seg Neuts % (Manual) Lymphocytes % (Manual) Nucleated RBC % Seg Neutrophils # 7.9 H Seg Neutrophils # Man Monocytes # (Manual) PT INR APTT D-Dimer Heparin Anti-Xa Level ABG pH ABG pO2 ABG HCO3 ABG O2 Saturation ABG Base Excess ABG Hemoglobin Oxyhemoglobin Sodium Potassium Chloride Carbon Dioxide BUN Creatinine Glucose POC Glucose 140 H 138 H Hemoglobin A1c Lactic Acid Calcium Phosphorus Magnesium Ferritin AST ALT Alkaline Phosphatase Lactate Dehydrogenase Troponin T C-Reactive Protein Total Protein Albumin LDL Cholesterol Direct Urine Creatinine Urine Total Protein Salicylates Acetaminophen Crossmatch 11/24/21 11/24/21 11/24/21 07:19 11:49 15:54 WBC RBC Hgb Hct MCH RDW Plt Count Lymph % (Auto) [place] % (Auto) Lymph # (Auto) [place] # (Auto) Seg Neutrophils % Seg Neuts % (Manual) Lymphocytes % (Manual) Nucleated RBC % Seg Neutrophils # Seg Neutrophils # Man Monocytes # (Manual) PT INR APTT D-Dimer Heparin Anti-Xa Level ABG pH ABG pO2 ABG HCO3 ABG O2 Saturation ABG Base Excess ABG Hemoglobin Oxyhemoglobin Sodium Potassium 3.2 L Chloride 96.7 L Carbon Dioxide BUN Creatinine Glucose 125 H POC Glucose 118 H 106 H Hemoglobin A1c Lactic Acid Calcium Phosphorus Magnesium Ferritin AST ALT Alkaline Phosphatase Lactate Dehydrogenase Troponin T C-Reactive Protein Total Protein Albumin LDL Cholesterol Direct Urine Creatinine Urine Total Protein Salicylates Acetaminophen Crossmatch 11/25/21 11/25/21 11/25/21 11:49 15:41 20:51 WBC RBC Hgb Hct MCH RDW Plt Count Lymph % (Auto) [place] % (Auto) Lymph # (Auto) [place] # (Auto) Seg Neutrophils % Seg Neuts % (Manual) Lymphocytes % (Manual) Nucleated RBC % Seg Neutrophils # Seg Neutrophils # Man Monocytes # (Manual) PT INR APTT D-Dimer Heparin Anti-Xa Level ABG pH ABG pO2 ABG HCO3 ABG O2 Saturation ABG Base Excess ABG Hemoglobin Oxyhemoglobin Sodium Potassium Chloride Carbon Dioxide BUN Creatinine Glucose POC Glucose 119 H 110 H 109 H Hemoglobin A1c Lactic Acid Calcium Phosphorus Magnesium Ferritin AST ALT Alkaline Phosphatase Lactate Dehydrogenase Troponin T C-Reactive Protein Total Protein Albumin LDL Cholesterol Direct Urine Creatinine Urine Total Protein Salicylates Acetaminophen Crossmatch 11/26/21 11/26/21 11/26/21 07:33 11:20 17:03 WBC RBC Hgb Hct MCH RDW Plt Count Lymph % (Auto) [place] % (Auto) Lymph # (Auto) [place] # (Auto) Seg Neutrophils % Seg Neuts % (Manual) Lymphocytes % (Manual) Nucleated RBC % Seg Neutrophils # Seg Neutrophils # Man Monocytes # (Manual) PT INR APTT D-Dimer Heparin Anti-Xa Level ABG pH ABG pO2 ABG HCO3 ABG O2 Saturation ABG Base Excess ABG Hemoglobin Oxyhemoglobin Sodium Potassium Chloride Carbon Dioxide BUN Creatinine Glucose POC Glucose 158 H 162 H 144 H Hemoglobin A1c Lactic Acid Calcium Phosphorus Magnesium Ferritin AST ALT Alkaline Phosphatase Lactate Dehydrogenase Troponin T C-Reactive Protein Total Protein Albumin LDL Cholesterol Direct Urine Creatinine Urine Total Protein Salicylates Acetaminophen Crossmatch 11/26/21 11/27/21 11/27/21 21:51 07:44 12:20 WBC RBC Hgb Hct MCH RDW Plt Count Lymph % (Auto) [place] % (Auto) Lymph # (Auto) [place] # (Auto) Seg Neutrophils % Seg Neuts % (Manual) Lymphocytes % (Manual) Nucleated RBC % Seg Neutrophils # Seg Neutrophils # Man Monocytes # (Manual) PT INR APTT D-Dimer Heparin Anti-Xa Level ABG pH ABG pO2 ABG HCO3 ABG O2 Saturation ABG Base Excess ABG Hemoglobin Oxyhemoglobin Sodium Potassium Chloride Carbon Dioxide BUN Creatinine Glucose POC Glucose 132 H 129 H 128 H Hemoglobin A1c Lactic Acid Calcium Phosphorus Magnesium Ferritin AST ALT Alkaline Phosphatase Lactate Dehydrogenase Troponin T C-Reactive Protein Total Protein Albumin LDL Cholesterol Direct Urine Creatinine Urine Total Protein Salicylates Acetaminophen Crossmatch 11/27/21 11/27/21 11/28/21 16:44 21:35 07:54 WBC RBC Hgb Hct MCH RDW Plt Count Lymph % (Auto) [place] % (Auto) Lymph # (Auto) [place] # (Auto) Seg Neutrophils % Seg Neuts % (Manual) Lymphocytes % (Manual) Nucleated RBC % Seg Neutrophils # Seg Neutrophils # Man Monocytes # (Manual) PT INR APTT D-Dimer Heparin Anti-Xa Level ABG pH ABG pO2 ABG HCO3 ABG O2 Saturation ABG Base Excess ABG Hemoglobin Oxyhemoglobin Sodium Potassium Chloride Carbon Dioxide BUN Creatinine Glucose POC Glucose 126 H 131 H 124 H Hemoglobin A1c Lactic Acid Calcium Phosphorus Magnesium Ferritin AST ALT Alkaline Phosphatase Lactate Dehydrogenase Troponin T C-Reactive Protein Total Protein Albumin LDL Cholesterol Direct Urine Creatinine Urine Total Protein Salicylates Acetaminophen Crossmatch 11/28/21 11/28/21 11/28/21 11:27 11:56 16:34 WBC 12.3 H RBC 3.18 L Hgb 9.2 L Hct 27.8 L MCH RDW 16.1 H Plt Count Lymph % (Auto) 10.9 L [place] % (Auto) 13.7 H Lymph # (Auto) [place] # (Auto) 1.7 H Seg Neutrophils % 72.2 H Seg Neuts % (Manual) Lymphocytes % (Manual) Nucleated RBC % Seg Neutrophils # 8.9 H Seg Neutrophils # Man Monocytes # (Manual) PT INR APTT D-Dimer Heparin Anti-Xa Level ABG pH ABG pO2 ABG HCO3 ABG O2 Saturation ABG Base Excess ABG Hemoglobin Oxyhemoglobin Sodium Potassium Chloride Carbon Dioxide BUN Creatinine Glucose POC Glucose 131 H 123 H Hemoglobin A1c Lactic Acid Calcium Phosphorus Magnesium Ferritin AST ALT Alkaline Phosphatase Lactate Dehydrogenase Troponin T C-Reactive Protein Total Protein Albumin LDL Cholesterol Direct Urine Creatinine Urine Total Protein Salicylates Acetaminophen Crossmatch Prior PFT's, U/S of legs: report reviewed, image reviewed Additional Studies: DUPLEX DOPPLER LOWER EXTREMITY VEINS, BILATERAL 11/28/21 INDICATION / CLINICAL INFORMATION: dvt. reassess. inability to anticoagulate.. TECHNIQUE: Duplex doppler imaging was performed through the veins of both lower extremities using venous compression and other maneuvers. COMPARISON: Bilateral lower extremity venous Doppler 11/13/2021. FINDINGS: RIGHT COMMON FEMORAL VEIN: Near occlusive thrombus RIGHT FEMORAL VEIN: Near occlusive thrombus RIGHT POPLITEAL VEIN: Occlusive thrombus. RIGHT CALF VEINS: Occlusive thrombus within the peroneal veins. LEFT COMMON FEMORAL VEIN: Occlusive thrombus LEFT FEMORAL VEIN: Occlusive thrombus LEFT POPLITEAL VEIN: Occlusive thrombus LEFT CALF VEINS: Occlusive thrombus ADDITIONAL FINDINGS: Occlusive thrombus within the left external iliac vein. IMPRESSION: 1. Worsening DVT bilaterally, now with near occlusive to occlusive thrombus throughout both lower extremities. Allied health notes reviewed: nursing
[2021-11-29] MEDS: ACETAMINOPHEN 325 MG TAB PO PRN ×2 (00:54→21:19)
[2021-11-29] MEDS: oxyCODONE /ACETAMINOPHEN 5-325MG TAB PO PRN ×3 (00:56→22:25)
[2021-11-29] MEDS: MORPHINE 2 MG/1 ML INJ IV PRN ×2 (03:54→07:58)
[2021-11-29] MEDS: hydrALAZINE 25 MG TAB PO SCH ×3 (06:18→22:29)
[2021-11-29] MEDS: GABAPENTIN 100 MG CAP PO SCH ×3 (06:18→21:19)
[2021-11-29] MEDS: INSULIN LISPRO 100 UNIT/ML SUB-Q SCH ×4 (07:53→22:33)
[2021-11-29] MEDS: SPIRONOLACTONE 25 MG TAB PO SCH (08:00)
[2021-11-29] MEDS: FAMOTIDINE 10 MG TAB PO SCH ×2 (09:36→21:19)
[2021-11-29] MEDS: LOSARTAN 25 MG TAB PO SCH ×2 (09:37→22:25)
[2021-11-29] MEDS: DOCUSATE SODIUM 100 MG CAP PO SCH ×2 (09:37→21:19)
[2021-11-29] MEDS: SENNOSIDES/DOCUSATE SODIUM 8.6/50 MG TAB PO SCH ×2 (09:38→21:19)
[2021-11-29] MEDS: FUROSEMIDE 20 MG/2 ML INJ IV SCH ×2 (09:38→22:29)
[2021-11-29] MEDS: METOPROLOL TARTRATE 100 MG TAB PO SCH ×2 (09:38→22:29)
--- NOTE | 2021-11-29 09:51 | Progress Note ---
Assessment and Plan Assessment and plan: 66 YO Female with Obesity was attending [facility] services when the patient collapsed and lost consciousness. Witnesses began CPR. EMS was notified and upon arrival the patient was found to be in distress without perfusing cardiac rhythm. Patient initiated on ACLS protocol and subsequently intubated in the field and transported to ED. The patient regained spontaneous circulation during transport. She was found to have acute hypoxemic respiratory failure, septic shock suspected secondary to aspiration pneumonia, metabolic acidosis, toxic metabolic encephalopathy, shock liver, and cardiac arrest with return of perfusing cardiac rhythm after initiation of ACLS protocol. Patient initiated on sepsis protocol as well as pneumonia protocol. Patient admitted to ICU. Patient improved, extubated on 11/11 and transferred to floor on 11/19. 66-year-old female with multiple medical issues including spontaneous left retroperitoneal hemorrhage requiring cessation of anticoagulation. Ultimately IVC filter was placed, but patient's DVTs continue to propagate. There are now extensive bilateral lower extremity DVTs. Started low intensity heparin drip. Awaiting CBC. If stable, can transition to standard intensity heparin drip. If tolerates that, then can be transition to Eliquis. s/p cardiac arrest, collapse at [facility], HFrEF, shock/hypotension resolved Atrial fibrillation/atrial flutter -Cardiac arrest and collapse at [facility] with ROSC -Cardiology consulted, appreciate recommendations - S/p Cardizem gtt- d/c due to low EF; now on PO Amio -s/p vasopressor support with levophed -Echocardiogram shows left ventricular systolic function severely decreased, LVEF 25 to 30%, no pericardial effusion -proBNP 5622 -Continue Lasix 20 mg twice daily, BB, spironolactone, losartan -No significant volume overload clinically Acute hypoxic respiratory failure, right pneumothorax, Angioedema (resolved), pulmonary edema -CCM consulted, appreciate recommendations -Intubated on 10/29 and extubated on 11/11 -Bipap q HS and prn, at high risk for KOLBY with morbid obesity -NC during day -s/p right chest tube for pneumothorax -s/p steroids for angioedema -On Lasix for pulmonary edema. Transaminitis likely shocked liver - resolved Acute kidney injury likely secondary to vasomotor nephropathy, hypernatremia -Nephrology consulted, appreciate recommendations -Krishna replaced 11/05 urinary retention -FeNa 0.05 indicating pre-renal -SIERRA and hyponatremia resolved. Creatinine 1.0 on Lasix IV Shock cardiogenicsuspected sepsis -Fever was as high as 102 with a leukocytosis Blood, urine and sputum cultures negative -COVID-19 PCR negative -S/p empiric antibiotic therapy for possible pneumonia with Rocephin and azithromycin () -S/p Levophed gtt for hypotension -Fever and leukocytosis resolved -Monitor WBC and temperature curve Acute Metabolic encephalopathy, agitation/anxiety -Etiology likely from a cardiac arrest, shock and cerebral hypoperfusion CT head no acute focal parenchymal lesion in the brain -Neurology consulted, appreciate recommendations -EEG and MRI noted, Neuro recommend to cut down on sedation as possible Mental status significantly improved, currently fairly alert and oriented. Answers appropriately. Acute DVT in the left posterior tibial vein and bilateral peroneal veins, Anemia, retroperitoneal bleed -D-dimer greater than 10,000 -CTA chest with no evidence of PE -Bilateral lower extremity ultrasound positive for DVT -Heparin gtt on hold d/t anemia, received PRBC x4 -vasuclar surgery consulted, appreciate recommendations -recommended multiphasic CT angio of the abdomen and pelvis with and without contrast if H/H drops and did not recommend IVC filter at this time as the DVTs are infrapopliteal and recommends a follow-up DVT study weekly for 2 weeks. Repeat venous duplex ultrasound on 11/21 showed progression of left peroneal DVT extending into popliteal vein. Vascular surgery completed IVC filter placement on 11/22. -Trend CBC -SCDs to BLE while in bed -Transfuse hemoglobin less than 7 -Monitor for signs of bleeding -Hemoglobin stable, 8.6 Hypertension, not able be controlled Increase losartan 200 mg daily and add hydralazine as needed. Hyperglycemia ,resolved) -Avoid hypoglycemia -Hbg A1C 6.7 -SSI and lantus q hs (titrate as needed) -Accu-Cheks q. 6 Morbid obesity High risk for KOLBY On nightly BiPAP Deconditioning PT/OT Hospital Course to Date: 10/30: Intubated and sedated, on fentanyl gtt. Open eyes spontaneously but does not follow any commands. On vasopressors, titrate as tolerated for MAP above 65. Patient febrile overnight, continue empiric IV Abx, culture data and COVID PCR pending. Patient is also s/p CT placement due to spontaneous pneumothorax. 2D echo is pending and Cardiology is consulted. 10/31: Patient remains intubated and following commands. Levophed drip stopped and potassium repleted. Patient started on tube feeding. Remains in soft bilateral restraints. 11/01: RN noted ST changes on BSM and 12 lead EKG obtained which showed ST. Given Ativan 1mg for agitation as she is maxed on fentanyl drip and IV push fentanyl did not seem to help. Patient was started on CPAP this morning by RT but remained on fentanyl drip and was having periods of apnea. Plan was to retry CPAP again in the p.m. with sedation off. 11/02: Rate increased r/t hypercapnea on ABG, sedation reduced. Given kionex for hyperkalemia and was started on levophed overnight for hypotension. 11/03: Overnight patient had tachycardia and was given Cardizem and Lopressor. Lopressor was repeated in the a.m. due to tachycardia. Patient will be started on amiodarone with a bolus per cardiology. Patient started on normal saline per liter per [facility] and steroids for angioedema. Noted to have bright red blood when suctioned from oh ETT. Remains on heparin drip as H/H is stable for now. Will reevaluate. Fentanyl drip was restarted last night due to agitation. Dr. Flores updated family today 11/04: Patient was sedated on fentanyl however off sedation is able to follow commands, a.m. labs completed in the p.m. and show hyperkalemia with increased renal function studies. Nephrology, neurology consulted by [facility]. Given Kayexalate, insulin and D50 for hyperkalemia. Patient remains on amiodarone. 11/05: Patient needed to be sedated on fentanyl again to today. overnight krishna was replaced. Hyperkalemia->given kionex 60 for 5.6. Repeat K 6-> Dr. Grant informed and requested bumex, kionex, insulin, d50, calcium gluconate and sodium bicarb with repeat BMP in 2 hours which were placed. HR remains elevated. 11/06: Patient remained in atrial fibrillation/atrial flutter with heart rate in the 150s despite being on amnio drip and was given amnio bolus, Cardizem bolus and started on Cardizem drip by cardiology. Patient is on beta-blockers p.o. scheduled and to feedings changed to Nepro. Kayexalate was given in the morning by nephrology due to hyperkalemia. 11/07: Patient is only responsive to mild stimuli, precedex added in an attempt to wean off fentanyl gtt to better assess her mental status. Neurology also on consult, pending MRI and EEG. Patient remains in Aflutter this am, HR in the 80 to 90s, still on amiodarone and heparin gtt. 11/08: Fentanyl gtt is off, only on precedex gtt. Patient is still not following any commands. MRI brain and EEG completed. Neuro recommendations noted, sedatives agents decreased. FWF added for hypernatremia and low K repleted, repeat labs ordered. Placed a call and spoke with patient's daughter, Eva Brown . She was updated on patient's conditions and status. All questions and concerns were voiced at this time. 11/09: Patient is awake and alert this am, following commands and appropriate. Remains on precedex gtt, plan for possible PST today. Hypertensive overnight, meds adjusted by Cardio and PRN Hydralazine added for SBP greater than 160. CT dislodged overnight, CXR is stable with no significant change. F/U CXR in the am. Patient's daughter, Eva Brown, visited with patient. She was updated on patient's status and goal of care for today. All questions and concerns were voiced at this time. 11/10: Mentation remains intact, still on precedex gtt. This am CXR noted still with fluid overload s/p X1 dose of IV lasix, good response from IV lasix overnight. Hypernatremia improved, D5W d/dayday. Still with persistent hypokalemia, continue electrolytes replacement and frequent lab check. Daily IV lasix and aldactone added by Cardio. Patient is also with persistent low grade fevers overnight, leukocytosis with mild improvement this am. Will get a repeat sputum culture, hold off on IV abx for now. Consider ID consult if fevers and l eukocytosis persist. Patient tolerated PST X4hrs yesterday. PST again today, plan to wean to extubate if tolerated. 11/11: IAM overnight. Off precedex gtt and tolerated PST this am. Plan to wean to extubate today. Additional IV lasix given, plan to keep patient at a net negative balance for better lung compliance. F/U CXR in the am. K improved this am, repeat BMP this afternoon since diuresing. Remains with low grade fevers, leukocytosis downtrending, will continue to monitor. Speech/PT/OT ordered 11/12: S/p extubation, now stable on 3L NC. This am CXR noted with no significant changes, lasix changed to IV X4days BID. Drop in H&H this am, and Lt. flank ecchymosis noted. Heparin gtt on hold for now and orders placed for 1 unit of PRBCs and Ct Abd/Pelvis w/o con to r/o retroperitoneal bleed. Pending speech swallow eval, keep patient NPO for now. Patient is stable for IMCU status 11/13: Patient with increased WOB and tachycardia this am, patient was placed on Bipap and precedex gtt was resumed. CXR with mild improvement. CT Abd/Pelvis also reviewed large hematomas noted at the Lt. retroperitoneum and left posterior lateral abdominal wall. Heparin gtt is already on hold, patient is h emodynamically stable. Vascular Surgery consulted for possible IVC filter eval. Patient s/p 2units of PRBCs, will continue to trend H&H and transfuse if hbg is less than 7. Worsening renal function this am, IF diuretic on hold for now. Patient is also febrile with spike in wbcs most likely reactive to bleed, will panculture and hold off on IV Abx for now. Patient also failed speech bedside swallow eval yesterday, NGT in placed plan to resume enteral nutrition 11/14: Patient had bilateral lower extremity Doppler ultrasound and vascular surgery has recommended multiphasic CT angio of the abdomen and pelvis with and without contrast if H/H drops and does not recommend IVC filter at this time as the DVTs are infrapopliteal and recommends a DVT study weekly for 2 weeks. FWF 250 q4 ml per nephro. Started on as needed Xanax and p.o. amiodarone. She did not pass her ST evaluation today. Will be transferred to [facility]. 11/15: Resting comfortably on encounter. Speech cleared for pureed diet. Remains on 3l satting 98 % on bedside encounter. Does not appear to be in respiratory distress. Will continue to hold AC, No ivc filter planned at this time. qweekly doppler to monitor for migration of DVT per vascular. If demonstrated, will consider IVC filter. CBC ordered for tomorrow, will continue monitoring in light of retroperitoneal hematoma. FWF increased by nephrology to 350cc q4hr d/t hyper natremia. UOP/renal function both improved. D/w cardiology, will continue amiodorone an additional 24hrs. Plan to change dosing of metoprolol. Continue to wean off of precedex. Continue xanax scheduled for anxiety. physical therapy recs noted, fernanda / ltac will discuss with CM. Continue IMCU monitoring. 11/16: Pulmonary congestion this AM. CXR ordered. Lasix 40 mg IV x 1 order this AM. Will monitor for 24 hrs. potential downgrade to medical floor tomorrow. 11/17: Persisting pulmonary congestion, was on bipap overnight into this AM. Will order additional lasix 40 mg IV x 2. CXR ordered for AM. Possible downgrade to floor tomorrow. Anticipate d/c sunday. 11/18: Patient seen and examined, continue weaning, will continue diuresis BID, discussed with daughter. 11/19: Patient seen and examined this morning doing well no acute distress noted. Lasix was increased to twice daily to 20 mg IV. Clinically improving. Patient will be transferred to telemetry today can be switched to Lasix p.o. twice daily in a.m. She has her weekly Doppler of lower extremity tomorrow vascular is following for this. She was taken off anticoagulation secondary to retroperitoneal bleed., The anticoagulation was started initially for atrial fibrillation and an infrapopliteal DVT. During her hospital stay she had a prolonged ventilator management and was successfully weaned off. She also received a total of 4 units of packed red blood cell. Hemoglobin has remained stable. Anticipate discharge in next 48 hours if continues to clinically stay stable. : Transferred from ICU on 11/19. Progressive improving. Currently awake and oriented. O2 weaned to 4 L. Hemodynamically stable. BP control being optimized. MiraLAX for constipation. Hemoglobin stable on the heparin infusion, being monitored closely with history of retroperitoneal bleed. 11/21: Patient remains mostly bedridden. She is awake and oriented on 2 L of O2. Repeat ultrasound showed extension of left peroneal DVT into popliteal vein. Heparin was discontinued for significant retroperitoneal bleed and off anticoagulation since. Vascular surgery plan for placement of IVC filter tomorrow. Patient is chest pains, palpitations, hemoptysis. She has some cough. Left lower extremity pain likely from DVT better today. Discussed with the patient, nursing staff and vascular surgery. 11/22: The infrapopliteal vein thrombosis has propagated to the left popliteal vein. Vascular surgery to perform IVC filter placement today. 11/23: Vascular surgery placed IVC filter yesterday. Continue metoprolol 100 mg p.o. twice daily, Aldactone 25 mg p.o. daily and losartan 25 mg p.o. daily. Patient still requiring BiPAP (IPAP18, EPAP8) with FiO2 of 30%. Continue to wean oxygen per pulmonary recommendations. Nurse reports patient is having vaginal bleeding. We will check serial CBC and pelvic ultrasound 11/24: I discussed with cardiology yesterday the need for a LifeVest. LifeVest is ordered and pending. Patient is s/p IVC filter placement. Continue metoprolol 100 mg p.o. twice daily, Aldactone 25 mg p.o. daily and losartan 25 mg p.o. daily. Patient still requiring BiPAP (IPAP18, EPAP8) with FiO2 of 30%. Continue to wean oxygen per pulmonary recommendations. No further reports of vaginal bleeding. Pelvic ultrasound negative 11/25: Awaiting for LifeVest. Patient is s/p IVC filter placement. Continue metoprolol 100 mg p.o. twice daily, Aldactone 25 mg p.o. daily and losartan 25 mg p.o. daily. Patient still requiring BiPAP (IPAP18, EPAP8) with FiO2 of 30%. Continue to wean oxygen per pulmonary recommendations. 11/26: Physical therapy recommends subacute rehab. Still awaiting LifeVest. Patient is s/p IVC filter placement. Continue metoprolol 100 mg p.o. twice daily, Aldactone 25 mg p.o. daily and losartan 25 mg p.o. daily. Patient still requiring BiPAP (IPAP18, EPAP8) with FiO2 of 30% at night. Continue to wean oxygen per pulmonary recommendations. Patient currently with 2 L O2. 11/27: Physical therapy recommends subacute rehab. Patient has a LifeVest. Patient's left lower extremity pain likely related to DVT. Continue pain contr ol. Continue metoprolol 100 mg p.o. twice daily, Aldactone 25 mg p.o. daily and losartan 25 mg p.o. daily. Patient still requiring BiPAP (IPAP18, EPAP8) with FiO2 of 30% at night. 11/28: Physical therapy recommends subacute rehab. Patient has a LifeVest. Patient continues to complain of left lower extremity pain which makes it very difficult for ambulation. Continue Percocet for pain control. Add neurontin for possible neuropathy. Etiology is likely secondary to DVT. Continue metoprolol 100 mg p.o. twice daily, Aldactone 25 mg p.o. daily and losartan 25 mg p.o. daily. Patient still requiring BiPAP (IPAP18, EPAP8) with FiO2 of 30% at night. Repeated Doppler US of LLE and will ask vascular surgery to revisit. 11/29; worsening lower extremity DVTs, vascular following, on heparin drip History Interval history: I have seen and examined the patient at the bedside Patient's chart and medications reviewed Patient feels slightly better And noted Hospitalist Physical - Constitutional Vitals: Temp Pulse Resp BP Pulse Ox 98.4 F 102 H 18 91/61 100 11/29/21 07:32 11/29/21 09:37 11/29/21 07:58 11/29/21 09:37 11/29/21 09:42 General appearance: Present: no acute distress, well-nourished, obese (Morbidly obese) - EENT Eyes: Present: PERRL, EOM intact - Neck Neck: Present: supple, normal ROM - Respiratory Respiratory effort: normal Respiratory: bilateral: diminished, rales, negative: rhonchi, wheezing - Cardiovascular Rhythm: regular Heart Sounds: Present: S1 & S2 - Extremities Extremities: no ischemia, No edema - Abdominal General gastrointestinal: soft, non-tender, non-distended, normal bowel sounds - Integumentary Integumentary: Present: clear, warm - Psychiatric Psychiatric: appropriate mood/affect, cooperative - Neurologic Neurologic: CNII-XII intact, moves all extremities HEART Score - HEART Score Troponin: Troponin T 1.150 ng/mL (0.00-0.029) H* D 10/29/21 22:34 Results - Labs CBC & Chem 7: 11/30/21 05:14 11/29/21 18:50 Labs: Laboratory Last Values WBC 12.3 K/mm3 (4.5-11.0) H 11/28/21 11:56 RBC 3.18 M/mm3 (3.65-5.03) L 11/28/21 11:56 Hgb 9.2 gm/dl (10.1-14.3) L 11/28/21 11:56 Hct 27.8 % (30.3-42.9) L 11/28/21 11:56 MCV 88 fl (79-97) 11/28/21 11:56 MCH 29 pg (28-32) 11/28/21 11:56 MCHC 33 % (30-34) 11/28/21 11:56 RDW 16.1 % (13.2-15.2) H 11/28/21 11:56 Plt Count 178 K/mm3 (140-440) 11/28/21 11:56 Lymph % (Auto) 10.9 % (13.4-35.0) L 11/28/21 11:56 Robertson % (Auto) 13.7 % (0.0-7.3) H 11/28/21 11:56 Eos % (Auto) 2.3 % (0.0-4.3) 11/28/21 11:56 Baso % (Auto) 0.9 % (0.0-1.8) 11/28/21 11:56 Lymph # (Auto) 1.3 K/mm3 (1.2-5.4) 11/28/21 11:56 Robertson # (Auto) 1.7 K/mm3 (0.0-0.8) H 11/28/21 11:56 Eos # (Auto) 0.3 K/mm3 (0.0-0.4) 11/28/21 11:56 Baso # (Auto) 0.1 K/mm3 (0.0-0.1) 11/28/21 11:56 Add Manual Diff Complete 11/07/21 06:30 Total Counted 100 11/07/21 06:30 Seg Neutrophils % 72.2 % (40.0-70.0) H 11/28/21 11:56 Seg Neuts % (Manual) 77.0 % (40.0-70.0) H 11/07/21 06:30 Band Neutrophils % 1.0 % 11/07/21 06:30 Lymphocytes % (Manual) 11.0 % (13.4-35.0) L 11/07/21 06:30 Reactive Lymphs % (Man) 3.0 % 11/07/21 06:30 Monocytes % (Manual) 2.0 % (0.0-7.3) 11/07/21 06:30 Eosinophils % (Manual) 0 % (0.0-4.3) 11/07/21 06:30 Basophils % (Manual) 0 % (0.0-1.8) 11/07/21 06:30 Metamyelocytes % 1.0 % 11/07/21 06:30 Myelocytes % 5.0 % 11/07/21 06:30 Promyelocytes % 0 % 11/07/21 06:30 Blast Cells % 0 % 11/07/21 06:30 Nucleated RBC % 2.0 % (0.0-0.9) H 11/07/21 06:30 Seg Neutrophils # 8.9 K/mm3 (1.8-7.7) H 11/28/21 11:56 Seg Neutrophils # Man 12.3 K/mm3 (1.8-7.7) H 11/07/21 06:30 Band Neutrophils # 0.2 K/mm3 11/07/21 06:30 Lymphocytes # (Manual) 1.8 K/mm3 (1.2-5.4) 11/07/21 06:30 Abs React Lymphs (Man) 0.5 K/mm3 11/07/21 06:30 Monocytes # (Manual) 0.3 K/mm3 (0.0-0.8) 11/07/21 06:30 Eosinophils # (Manual) 0.0 K/mm3 (0.0-0.4) 11/07/21 06:30 Basophils # (Manual) 0.0 K/mm3 (0.0-0.1) 11/07/21 06:30 Metamyelocytes # 0.2 K/mm3 11/07/21 06:30 Myelocytes # 0.8 K/mm3 11/07/21 06:30 Promyelocytes # 0.0 K/mm3 11/07/21 06:30 Blast Cells # 0.0 K/mm3 11/07/21 06:30 WBC Morphology Not Reportable 11/07/21 06:30 Hypersegmented Neuts Not Reportable 11/07/21 06:30 Hyposegmented Neuts Not Reportable 11/07/21 06:30 Hypogranular Neuts Not Reportable 11/07/21 06:30 Smudge Cells Not Reportable 11/07/21 06:30 Toxic Granulation Not Reportable 11/07/21 06:30 Toxic Vacuolation Not Reportable 11/07/21 06:30 Dohle Bodies Not Reportable 11/07/21 06:30 Pelger-Huet Anomaly Not Reportable 11/07/21 06:30 Manny Rods Not Reportable 11/07/21 06:30 Platelet Estimate Consistent w auto 11/07/21 06:30 Clumped Platelets Not Reportable 11/07/21 06:30 Plt Clumps, EDTA Not Reportable 11/07/21 06:30 Large Platelets 1+ 11/07/21 06:30 Giant Platelets Not Reportable 11/07/21 06:30 Platelet Satelliting Not Reportable 11/07/21 06:30 Plt Morphology Comment Not Reportable 11/07/21 06:30 RBC Morphology Not Reportable 11/07/21 06:30 Dimorphic RBCs Not Reportable 11/07/21 06:30 Polychromasia Not Reportable 11/07/21 06:30 Hypochromasia 1+ 11/07/21 06:30 Poikilocytosis Not Reportable 11/07/21 06:30 Anisocytosis Not Reportable 11/07/21 06:30 Microcytosis Not Reportable 11/07/21 06:30 Macrocytosis Not Reportable 11/07/21 06:30 Spherocytes 1+ 11/07/21 06:30 Pappenheimer Bodies Not Reportable 11/07/21 06:30 Sickle Cells Not Reportable 11/07/21 06:30 Target Cells 1+ 11/07/21 06:30 Tear Drop Cells Not Reportable 11/07/21 06:30 Ovalocytes Not Reportable 11/07/21 06:30 Helmet Cells Not Reportable 11/07/21 06:30 Maradiaga-Lillie Bodies Not Reportable 11/07/21 06:30 Willard Rings Not Reportable 11/07/21 06:30 [place] Cells Not Reportable 11/07/21 06:30 Bite Cells Not Reportable 11/07/21 06:30 Crenated Cell Not Reportable 11/07/21 06:30 Elliptocytes Not Reportable 11/07/21 06:30 Acanthocytes (Spur) Not Reportable 11/07/21 06:30 Rouleaux Not Reportable 11/07/21 06:30 Hemoglobin C Crystals Not Reportable 11/07/21 06:30 Schistocytes Not Reportable 11/07/21 06:30 Malaria parasites Not Reportable 11/07/21 06:30 Magdy Bodies Not Reportable 11/07/21 06:30 Hem Pathologist Commnt No 11/07/21 06:30 PT 17.2 Sec. (12.2-14.9) H 10/30/21 16:30 INR 1.27 (0.87-1.13) H 10/30/21 16:30 APTT 44.4 Sec. (24.2-36.6) H 10/30/21 16:30 D-Dimer > 97186 ng/mlDDU (0-234) H 10/30/21 Unknown Heparin Anti-Xa Level 0.36 U.I./ml (0.3-0.7) 11/29/21 01:36 ABG pH 7.475 pH Units (7.350-7.450) H 11/11/21 13:53 ABG pCO2 45.0 mm Hg 11/11/21 13:53 ABG pO2 64.1 mm Hg (80.0-90.0) L 11/11/21 13:53 ABG HCO3 32.4 mmol/L (20.0-26.0) H 11/11/21 13:53 ABG O2 Saturation 96.3 % (95.0-99.0) 11/11/21 13:53 ABG O2 Content 10.1 (0.0-44) 11/11/21 13:53 ABG Base Excess 8.0 mmol/L (-2.0-3.0) H 11/11/21 13:53 ABG Hemoglobin 7.6 gm/dl (12.0-16.0) L 11/11/21 13:53 ABG Carboxyhemoglobin 1.8 % (0.0-5.0) 11/11/21 13:53 ABG Methemoglobin 0.5 % (0.0-1.5) 11/11/21 13:53 Oxyhemoglobin 94.0 % (95.0-99.0) L 11/11/21 13:53 FiO2 32 % 11/11/21 13:53 Sodium 138 mmol/L (137-145) 11/24/21 07:19 Potassium 3.2 mmol/L (3.6-5.0) L 11/24/21 07:19 Chloride 96.7 mmol/L (98-107) L 11/24/21 07:19 Carbon Dioxide 30 mmol/L (22-30) 11/24/21 07:19 Anion Gap 15 mmol/L 11/24/21 07:19 BUN 10 mg/dL (7-17) 11/24/21 07:19 Creatinine 1.0 mg/dL (0.6-1.2) 11/24/21 07:19 Estimated GFR > 60 ml/min 11/24/21 07:19 BUN/Creatinine Ratio 10 % 11/24/21 07:19 Glucose 125 mg/dL (65-100) H 11/24/21 07:19 POC Glucose 108 mg/dL (70-105) H 11/29/21 07:33 Hemoglobin A1c 6.7 % (4-6) H 10/31/21 04:30 Lactic Acid 0.70 mmol/L (0.7-2.0) 10/31/21 15:45 Calcium 8.7 mg/dL (8.4-10.2) 11/24/21 07:19 Phosphorus 3.10 mg/dL (2.5-4.5) 11/19/21 14:38 Magnesium 1.60 mg/dL (1.7-2.3) L 11/19/21 14:38 Ferritin 208.4 ng/mL (10.0-200.0) H 10/30/21 Unknown Total Bilirubin < 0.20 mg/dL (0.1-1.2) 11/06/21 02:35 AST 21 units/L (5-40) 11/06/21 02:35 ALT 77 units/L (7-56) H 11/06/21 02:35 Alkaline Phosphatase 84 units/L (35-129) 11/06/21 02:35 Ammonia 31.0 umol/L (25-60) 10/29/21 15:10 Lactate Dehydrogenase 469 units/L (91-180) H 10/30/21 Unknown Troponin T 1.150 ng/mL (0.00-0.029) H* D 02/05/22 22:34 C-Reactive Protein 13.40 mg/dL (0.00-1.30) H 10/30/21 Unknown Total Protein 6.3 g/dL (6.3-8.2) 11/06/21 02:35 Albumin 3.0 g/dL (3.9-5) L 11/06/21 02:35 Albumin/Globulin Ratio 0.9 % 11/06/21 02:35 Triglycerides 68 mg/dL (2-149) 10/29/21 19:40 Cholesterol 98 mg/dL (50-199) 10/29/21 19:40 LDL Cholesterol Direct 43 mg/dL (50-130) L 10/29/21 19:40 HDL Cholesterol 50 mg/dL (40-59) 10/29/21 19:40 Cholesterol/HDL Ratio 1.96 % 10/29/21 19:40 Procalcitonin 61.95 ng/mL (<0.15) 10/30/21 Unknown TSH 3.080 mlU/mL (0.270-4.200) 10/29/21 15:10 Urine Color Yellow (Yellow) 11/13/21 08:30 Urine Turbidity Slightly-cloudy (Clear) 11/13/21 08:30 Urine pH 6.0 (5.0-7.0) 11/13/21 08:30 Ur Specific [place] 1.010 (1.003-1.030) 11/13/21 08:30 Urine Protein <15 mg/dl mg/dL (Negative) 11/13/21 08:30 Urine Glucose (UA) Neg mg/dL (Negative) 11/13/21 08:30 Urine Ketones Tr mg/dL (Negative) 11/13/21 08:30 Urine Blood Sm (Negative) 11/13/21 08:30 Urine Nitrite Neg (Negative) 11/13/21 08:30 Urine Bilirubin Neg (Negative) 11/13/21 08:30 Urine Urobilinogen < 2.0 mg/dL (<2.0) 11/13/21 08:30 Ur Leukocyte Esterase Neg (Negative) 11/13/21 08:30 Urine WBC (Auto) < 1.0 /HPF (0.0-6.0) 11/13/21 08:30 Urine RBC (Auto) < 1.0 /HPF (0.0-6.0) 11/13/21 08:30 U Epithel Cells (Auto) < 1.0 /HPF (0-13.0) 11/13/21 08:30 Urine Mucus Few /HPF 10/29/21 18:15 Urine Eosinophils None seen (None Seen) 11/04/21 Unknown Urine Creatinine 190.9 mg/dL (0.1-20.0) H 11/04/21 Unknown Protein/Creatinin Ratio 0.90 11/04/21 Unknown Urine Sodium 10 mmol/L 11/04/21 Unknown Urine Total Protein 172 mg/dL (5-11.8) H 11/04/21 Unknown Salicylates < 0.3 mg/dL (2.8-20.0) L 10/29/21 15:10 Urine Opiates Screen Negative 10/29/21 18:15 Urine Methadone Screen Negative 10/29/21 18:15 Acetaminophen 5.0 ug/mL (10.0-30.0) L 10/29/21 15:10 Ur Barbiturates Screen Negative 10/29/21 18:15 Ur Phencyclidine Scrn Negative 10/29/21 18:15 Ur Amphetamines Screen Negative 10/29/21 18:15 U Benzodiazepines Scrn Negative 10/29/21 18:15 Urine Cocaine Screen Negative 10/29/21 18:15 U Marijuana (THC) Screen Negative 10/29/21 18:15 Drugs of Abuse Note Disclamer 10/29/21 18:15 Plasma/Serum Alcohol < 0.01 % (0-0.07) 10/29/21 15:10 Coronavirus (PCR) Negative (Negative) 10/30/21 Unknown Blood Type O POSITIVE 11/12/21 04:15 Antibody Screen Negative 11/12/21 04:15 Crossmatch See Detail 11/12/21 04:15 Krishna/IV: Voiding Method Indwelling Catheter Active Medications - Current Medications Current Medications: Generic Name Dose Route Start Last Admin Trade Name Freq PRN Reason Stop Dose Admin Acetaminophen 650 mg 10/29/21 17:04 11/12/21 22:53 Acetaminophen 650 Mg Rect Supp [place] 650 mg Q6H PRN Administration Pain MILD(1-3)/Fever >100.5/NIEVES Acetaminophen 650 mg 11/19/21 16:35 11/29/21 00:54 Acetaminophen 325 Mg Tab PO 650 mg Q6HR PRN Administration PAIN Alprazolam 0.25 mg 11/14/21 14:29 11/27/21 11:24 Alprazolam 0.25 Mg Tab PO 0.25 mg Q8H PRN Administration Anxiety Dextrose 0 ml 11/04/21 13:48 11/12/21 05:45 Dextrose 10% *Hypoglycemia IV 50 ml PRN PRN Administration Hypoglycemia Docusate Sodium 100 mg 11/18/21 15:00 11/29/21 09:37 Docusate Sodium 100 Mg Cap PO 100 mg BID RAMON Administration Famotidine 10 mg 11/06/21 10:00 11/29/21 09:36 Famotidine 10 Mg Tab PO 10 mg BID RAMON Administration Furosemide 20 mg 11/18/21 10:00 11/29/21 09:38 Furosemide 20 Mg/2 Ml Inj IV Not Given BID RAMON Gabapentin 100 mg 11/28/21 14:00 11/29/21 06:18 Gabapentin 100 Mg Cap PO 100 mg Q8HR RAMON Administration Hydralazine HCl 50 mg 11/22/21 22:00 11/29/21 06:18 Hydralazine 25 Mg Tab PO Not Given Q8HR RAMON Hydrophilic Ointment 1 applic 10/29/21 14:29 11/09/21 08:51 Lip Therapy Vaseline TP 1 applic Q2HR PRN Administration Dry Lips Heparin Sodium/Sodium Chloride 25,000 unit in 500 mls @ 30 mls/hr 11/28/21 17:00 11/29/21 03:41 Heparin/ 0.45% Nacl-25,000 Unit/500 Ml IV 1,400 units/hr TITR RAMON 28 mls/hr Titration Protocol 1,500 UNITS/HR Insulin Human Lispro 0 unit 11/25/21 22:00 11/29/21 07:53 Insulin Lispro 100 Unit/Ml SUB-Q Not Given ACHS RAMON Protocol Lactulose 20 gm 11/18/21 14:43 11/27/21 18:28 Lactulose 20 Gm/30 Ml Oral Liqd PO 20 gm Q6H PRN Administration Constipation Losartan Potassium 50 mg 11/20/21 11:00 11/29/21 09:37 Losartan 25 Mg Tab PO Not Given BID RAMON Melatonin 10 mg 11/22/21 17:31 11/27/21 21:32 Melatonin 5 Mg Tab PO 10 mg QHS PRN Administration Sleep Metoprolol Tartrate 100 mg 11/16/21 22:00 11/29/21 09:38 Metoprolol Tartrate 100 Mg Tab PO Not Given BID RAMON Morphine Sulfate 1 mg 11/28/21 15:00 11/29/21 07:58 Morphine 2 Mg/1 Ml Inj IV 1 mg Q4H PRN Administration Pain, Moderate (4-6) Multi-Ingred Cream/Lotion/Oil/Oint 1 applic 10/29/21 14:29 11/06/21 09:25 Mineral Oil/Petrolatum, White Ophth Oint 3.5 Gm OU 1 applic Q4HR PRN Administration Dry Eye(s) Oxycodone/Acetaminophen 1 tab 11/27/21 14:31 11/29/21 00:56 Oxycodone /Acetaminophen 5-325mg Tab PO 1 tab Q4H PRN Administration Pain, Moderate (4-6) Polyethylene Glycol 17 gm 11/20/21 12:47 11/25/21 08:30 Polyethylene Glycol 3350 17 Gm Powder PO 17 gm QDAY PRN Administration Constipation Senna/Docusate Sodium 1 tab 11/16/21 22:00 11/29/21 09:38 Sennosides/Docusate Sodium 8.6/50 Mg Tab PO 1 tab BID RAMON Administration Sodium Chloride 10 ml 10/29/21 22:00 11/29/21 09:38 Sodium Chloride 0.9% 10 Ml Flush Syringe IV 10 ml BID RAMON Administration Sodium Chloride 10 ml 10/29/21 17:04 Sodium Chloride 0.9% 10 Ml Flush Syringe IV PRN PRN LINE FLUSH Spironolactone 25 mg 11/10/21 10:00 11/29/21 08:00 Spironolactone 25 Mg Tab PO 25 mg QDAY RAMON Administration Nutrition/Malnutrition Assess - Dietary Evaluation Nutrition/Malnutrition Findings: Nutrition Notes Start: 10/30/21 09:50 Freq: Status: Active Protocol: Document 11/25/21 19:04 MEENU (Rec: 11/25/21 19:16 MEENU [id number]) Nutrition Notes Initial or Follow up Reassessment Current Diagnosis Sepsis,Hypertension, Respiratory Failure Other Pertinent Diagnosis s/p Cardiac Arrest, DVT, Anemia, Pneumonia, Pneumothorax, P Edema, HFrEF.. . Current Diet Mechanical Soft Diet (since B 11/22). Labs/Tests 11/24: K 3.2, Cl 96.7, Glu 125 . Pertinent Medications 11/25: Nutritionally unremarkable. Height 5 ft 10 in Weight 109.5 kg [place] Body Weight (kg) 68.18 BMI 34.6 Weight change and time frame 2.5 Kg body weight loss in 1 week reported. Weight Status Obese Subjective/Other Information RD consulr for routine F/U on Diet tolerance/advancement. Diet has advanced to Mechanical Soft. Pt's PO intake of meals has been Fair (50-75%), according to ADL notes. Percent of energy/protein needs met: Prescribed Mechanical Soft Diet provides for energy/ protein needs (2,048 Kcal/97 g ) during LOS. Burn Absent Trauma Absent GI Symptoms None Food Allergy No Skin Integrity/Comment Assessment WNL. Current % PO Fair (50-74%) Minimum of two criteria No #1 Nutrition Diagnosis Inadequate oral intake Comments: Pt's PO intake of meals has been Fair (50-75%), according to ADL notes. Diet advanced to Mechanical Soft. Diagnosis Progress(for reassessment Improved documentation) Is patient on ventilator? No Is Patient Ambulatory and/or Out of Bed No REE-([facility]-confined to bed) 2056.424 Kcal/Kg value to use for calculation 15 Approximate Energy Requirements Using 1643 kcal/Kg Calculation Used for Recommendations Kcal/kg Additional Notes Protein: 0.8-1.2 g/Kg IBW; 70- 105 g/day. Fluids: 1 ml/Kcal, or as per MD. Nutrition Intervention Change Diet Order: Continue Mechanical Soft Diet. Goal #1 Maintain body weight within +/ -3% of admission body weight during LOS. Goal #2 Facilitate PO intake of meals with mechanical modification during LOS. Follow-Up By: 12/02/21 Additional Comments Continue monitoring food tolerance, %PO intake of meals , and BM.
--- NOTE | 2021-11-29 12:05 | Progress Note ---
Assessment and Plan 66-year-old female with multiple medical issues including spontaneous left retroperitoneal hemorrhage requiring cessation of anticoagulation. Ultimately IVC filter was placed, but patient's DVTs continue to propagate. There are now extensive bilateral lower extremity DVTs. Started low intensity heparin drip. Awaiting CBC. If stable, can transition to standard intensity heparin drip. If tolerates that, then can be transition to [place]. Subjective Date of service: 11/29/21 Principal diagnosis: AHRF; Cardiac arrest; R. pneumothorax; pneumonia; AMS; DVT's; SIERRA; Obesity Interval history: Complaining of left leg sciatica, left calf heaviness and tightness, and no issues on the right side. Started low intensity heparin drip yesterday. Patient tolerated anticoagulation so far without issue. Ordered CBC. If hemoglobin stable, can transition to standard intensity heparin drip. Objective - Constitutional Vitals: Vital Signs - 12hr 11/29/21 11/29/21 11/29/21 00:47 00:57 04:46 Temperature 100.3 F H 98.2 F 99.1 F Pulse Rate 109 H 75 102 H Pulse Rate [ Right Dorsalis Pedis] Respiratory 20 19 19 Rate Blood Pressure 101/51 143/73 107/50 O2 Sat by Pulse 95 100 100 Oximetry 11/29/21 11/29/21 11/29/21 06:18 07:32 07:58 Temperature 98.4 F Pulse Rate 102 H 101 H Pulse Rate [ Right Dorsalis Pedis] Respiratory 20 18 Rate Blood Pressure 107/50 109/55 O2 Sat by Pulse 99 Oximetry 11/29/21 11/29/21 11/29/21 09:37 09:42 10:00 Temperature Pulse Rate 102 H 104 H Pulse Rate [ 104 H Right Dorsalis Pedis] Respiratory 18 Rate Blood Pressure 91/61 O2 Sat by Pulse 100 97 Oximetry General appearance: Present: mild distress (Left leg discomfort) - EENT Eyes: EOM intact ENT: hearing intact - Respiratory Respiratory effort: normal Extremities: pulses intact, normal temperature, normal color Extremity abnormal: edema - Gastrointestinal General gastrointestinal: Present: soft, non-tender, other (Obese) - Psychiatric Psychiatric: appropriate mood/affect, cooperative - Labs CBC & Chem 7: 11/28/21 11:56 11/24/21 07:19 Labs: Abnormal lab results 11/28/21 11/28/21 11/28/21 Range/Units 11:56 16:34 19:35 WBC 12.3 H (4.5-11.0) K/mm3 RBC 3.18 L (3.65-5.03) M/mm3 Hgb 9.2 L (10.1-14.3) gm/dl Hct 27.8 L (30.3-42.9) % RDW 16.1 H (13.2-15.2) % Lymph % (Auto) 10.9 L (13.4-35.0) % [place] % (Auto) 13.7 H (0.0-7.3) % [place] # (Auto) 1.7 H (0.0-0.8) K/mm3 Seg Neutrophils % 72.2 H (40.0-70.0) % Seg Neutrophils # 8.9 H (1.8-7.7) K/mm3 Heparin Anti-Xa Level 0.12 L (0.3-0.7) U.I./ml POC Glucose 123 H (70-105) mg/dL 11/28/21 11/29/21 11/29/21 Range/Units 21:32 07:33 11:29 WBC (4.5-11.0) K/mm3 RBC (3.65-5.03) M/mm3 Hgb (10.1-14.3) gm/dl Hct (30.3-42.9) % RDW (13.2-15.2) % Lymph % (Auto) (13.4-35.0) % [place] % (Auto) (0.0-7.3) % [place] # (Auto) (0.0-0.8) K/mm3 Seg Neutrophils % (40.0-70.0) % Seg Neutrophils # (1.8-7.7) K/mm3 Heparin Anti-Xa Level (0.3-0.7) U.I./ml POC Glucose 110 H 108 H 136 H (70-105) mg/dL Medications & Allergies - Medications Allergies/Adverse Reactions: Allergies No Known Allergies Allergy (Verified 10/29/21 14:01) Home Medications: Home Medications Medication Instructions Recorded Confirmed Last Taken Type Unobtainable 11/10/21 11/10/21 Unknown History Active Medications: Generic Name Dose Route Start Last Admin Trade Name Freq PRN Reason Stop Dose Admin Acetaminophen 650 mg 10/29/21 17:04 11/12/21 22:53 Acetaminophen 650 Mg Rect Supp [place] 650 mg Q6H PRN Administration Pain MILD(1-3)/Fever >100.5/NIEVES Acetaminophen 650 mg 11/19/21 16:35 11/29/21 00:54 Acetaminophen 325 Mg Tab PO 650 mg Q6HR PRN Administration PAIN Alprazolam 0.25 mg 11/14/21 14:29 11/27/21 11:24 Alprazolam 0.25 Mg Tab PO 0.25 mg Q8H PRN Administration Anxiety Dextrose 0 ml 11/04/21 13:48 11/12/21 05:45 Dextrose 10% *Hypoglycemia IV 50 ml PRN PRN Administration Hypoglycemia Docusate Sodium 100 mg 11/18/21 15:00 11/29/21 09:37 Docusate Sodium 100 Mg Cap PO 100 mg BID RAMON Administration Famotidine 10 mg 11/06/21 10:00 11/29/21 09:36 Famotidine 10 Mg Tab PO 10 mg BID RAMON Administration Furosemide 20 mg 11/18/21 10:00 11/29/21 09:38 Furosemide 20 Mg/2 Ml Inj IV Not Given BID RAMON Gabapentin 100 mg 11/28/21 14:00 11/29/21 06:18 Gabapentin 100 Mg Cap PO 100 mg Q8HR RAMON Administration Hydralazine HCl 50 mg 11/22/21 22:00 11/29/21 06:18 Hydralazine 25 Mg Tab PO Not Given Q8HR RAMON Hydrophilic Ointment 1 applic 10/29/21 14:29 11/09/21 08:51 Lip Therapy Vaseline TP 1 applic Q2HR PRN Administration Dry Lips Heparin Sodium/Sodium Chloride 25,000 unit in 500 mls @ 30 mls/hr 11/28/21 17:00 11/29/21 03:41 Heparin/ 0.45% Nacl-25,000 Unit/500 Ml IV 1,400 units/hr TITR RAMON 28 mls/hr Titration Protocol 1,500 UNITS/HR Insulin Human Lispro 0 unit 11/25/21 22:00 11/29/21 07:53 Insulin Lispro 100 Unit/Ml SUB-Q Not Given ACHS RAMON Protocol Lactulose 20 gm 11/18/21 14:43 11/27/21 18:28 Lactulose 20 Gm/30 Ml Oral Liqd PO 20 gm Q6H PRN Administration Constipation Losartan Potassium 50 mg 11/20/21 11:00 11/29/21 09:37 Losartan 25 Mg Tab PO Not Given BID RAMON Melatonin 10 mg 11/22/21 17:31 11/27/21 21:32 Melatonin 5 Mg Tab PO 10 mg QHS PRN Administration Sleep Metoprolol Tartrate 100 mg 11/16/21 22:00 11/29/21 09:38 Metoprolol Tartrate 100 Mg Tab PO Not Given BID RAMON Morphine Sulfate 1 mg 11/28/21 15:00 11/29/21 07:58 Morphine 2 Mg/1 Ml Inj IV 1 mg Q4H PRN Administration Pain, Moderate (4-6) Multi-Ingred Cream/Lotion/Oil/Oint 1 applic 10/29/21 14:29 11/06/21 09:25 Mineral Oil/Petrolatum, White Ophth Oint 3.5 Gm OU 1 applic Q4HR PRN Administration Dry Eye(s) Oxycodone/Acetaminophen 1 tab 11/27/21 14:31 11/29/21 00:56 Oxycodone /Acetaminophen 5-325mg Tab PO 1 tab Q4H PRN Administration Pain, Moderate (4-6) Polyethylene Glycol 17 gm 11/20/21 12:47 11/25/21 08:30 Polyethylene Glycol 3350 17 Gm Powder PO 17 gm QDAY PRN Administration Constipation Senna/Docusate Sodium 1 tab 11/16/21 22:00 11/29/21 09:38 Sennosides/Docusate Sodium 8.6/50 Mg Tab PO 1 tab BID RAMON Administration Sodium Chloride 10 ml 10/29/21 22:00 11/29/21 09:38 Sodium Chloride 0.9% 10 Ml Flush Syringe IV 10 ml BID RAMON Administration Sodium Chloride 10 ml 10/29/21 17:04 Sodium Chloride 0.9% 10 Ml Flush Syringe IV PRN PRN LINE FLUSH Spironolactone 25 mg 11/10/21 10:00 11/29/21 08:00 Spironolactone 25 Mg Tab PO 25 mg QDAY RAMON Administration HEART Score - HEART Score Troponin: Troponin T 1.150 ng/mL (0.00-0.029) H* D 10/29/21 22:34
[2021-11-29] MEDS: HEPARIN/ 0.45% NACL DRIP 25,000 UNIT/500 ML BAG IV SCH (12:17)
[2021-11-29] MEDS: LACTULOSE 20 GM/30 ML ORAL LIQD PO PRN ×2 (12:33→21:20)
--- NOTE | 2021-11-29 12:38 | Progress Note ---
Assessment and Plan Acute hypoxemic respiratory failure on MVS Cardiac arrest with ROSC Acute DVT Right pneumothorax Shock (septic +/- cardiogenic) Possible aspiration pneumonia SIERRA Altered mental status/acute encephalopathy Elevated serum transaminases, likely shock liver Metabolic acidosis Obesity Retro-peritoneal Hematoma Leukocytosis Hypokalemia Lactic acidosis - transition to oral anticoagulation if no bleeding - trend H&H - continue IV Heparin for now - instructed to use incentive spirometer religiously - PT/OT/ increase ambulation as tolerated - continue BIPAP scheduled qhs with prn daytime use - continue care as below otherwise; - continue to wean supplemental oxygen for target O2 sat's > 90% acutely - aspiration precautions - continue bronchodilators with pulmonary hygiene per RT - continue accuchecks with glycemic control per SSI for target blood glucose < 180 mg/dL - avoid nephrotoxins, renally dose all medications - continue to avoid benzodiazepine's, reduce the possibility of delirium - AB's per ID rec's - prn analgesia per pain score - Maintenance of sleep-wake cycle, avoid delirium - G.I. & VTE prophylaxis - PT/OT/ROM exercises - continue mobility protocols for pressure ulcer prophylaxis - Monitor hemodynamics closely - continue other care per attending / other consultants - discharge planning ongoing concurrently COVID SPECIFIC INTERVENTIONS - COVID-19 PCR negative .... Re-evaluate in am & prn Subjective Date of service: 11/29/21 Principal diagnosis: AHRF; Cardiac arrest; R. pneumothorax; pneumonia; AMS; DVT's; SIERRA; Obesity Interval history: Patient is seen today for: Acute hypoxemic respiratory failure; Cardiac arrest with ROSC; Right pneumothorax; pneumonia; AMS; bilateral DVT's; SIERRA; Obesity Seen and examined at bedside; 24hour events reviewed; nursing and respiratory care staff consulted; no adverse overnight events reported to me; resting in bed; still feels weak; denies acute chest pain; no gross bleeding on IV Heparin; No N/V/F/C Objective Vital Signs - 12hr 11/29/21 11/29/21 11/29/21 00:47 00:57 04:46 Temperature 100.3 F H 98.2 F 99.1 F Pulse Rate 109 H 75 102 H Pulse Rate [ Right Dorsalis Pedis] Respiratory 20 19 19 Rate Blood Pressure 101/51 143/73 107/50 O2 Sat by Pulse 95 100 100 Oximetry 11/29/21 11/29/21 11/29/21 06:18 07:32 07:58 Temperature 98.4 F Pulse Rate 102 H 101 H Pulse Rate [ Right Dorsalis Pedis] Respiratory 20 18 Rate Blood Pressure 107/50 109/55 O2 Sat by Pulse 99 Oximetry 11/29/21 11/29/21 11/29/21 09:37 09:42 10:00 Temperature Pulse Rate 102 H 104 H Pulse Rate [ 104 H Right Dorsalis Pedis] Respiratory 18 Rate Blood Pressure 91/61 O2 Sat by Pulse 100 97 Oximetry 11/29/21 11:30 Temperature 97.8 F Pulse Rate 113 H Pulse Rate [ Right Dorsalis Pedis] Respiratory Rate Blood Pressure 84/54 O2 Sat by Pulse 97 Oximetry Constitutional: no acute distress, alert, other (elderly obese female with mildly increased respiratory effort at rest ) Eyes: non-icteric ENT: oropharynx moist Neck: supple, no lymphadenopathy, no JVD, other (large circumference) Effort: mildly labored Ascultation: Bilateral: diminished breath sounds, rhonchi (bases) Percussion: Bilateral: not dull Cardiovascular: regular rate and rhythm, other (no R/M) Gastrointestinal: normoactive bowel sounds, soft, non-tender, other (obese) Integumentary: normal, other (Left flank ecchymosis with induration) Extremities: no cyanosis, pulses normal, no ischemia or petechiae, edema Neurologic: normal mental status, non-focal exam (grossly), pupils equal and round, motor strength normal and (weak) Psychiatric: mood appropriate, affect normal CBC and BMP: 11/30/21 05:14 11/29/21 18:50 ABG, PT/INR, D-dimer: ABG ABG pH 7.475 pH Units (7.350-7.450) H 11/11/21 13:53 ABG pCO2 45.0 mm Hg 11/11/21 13:53 ABG pO2 64.1 mm Hg (80.0-90.0) L 11/11/21 13:53 ABG O2 Saturation 96.3 % (95.0-99.0) 11/11/21 13:53 PT/INR, D-dimer PT 17.2 Sec. (12.2-14.9) H 10/30/21 16:30 INR 1.27 (0.87-1.13) H 10/30/21 16:30 D-Dimer > 83746 ng/mlDDU (0-234) H 10/30/21 Unknown Abnormal lab findings: Abnormal Labs 10/29/21 10/29/21 10/29/21 15:10 15:10 15:10 WBC 27.8 H RBC Hgb Hct MCH 27 L RDW Plt Count Lymph % (Auto) [place] % (Auto) Lymph # (Auto) [place] # (Auto) Seg Neutrophils % Seg Neuts % (Manual) 78.0 H Lymphocytes % (Manual) 10.0 L Nucleated RBC % Seg Neutrophils # Seg Neutrophils # Man 21.7 H Monocytes # (Manual) 1.4 H PT INR APTT D-Dimer Heparin Anti-Xa Level ABG pH ABG pO2 ABG HCO3 ABG O2 Saturation ABG Base Excess ABG Hemoglobin Oxyhemoglobin Sodium Potassium Chloride Carbon Dioxide BUN Creatinine Glucose POC Glucose Hemoglobin A1c Lactic Acid 6.80 H* Calcium Phosphorus Magnesium Ferritin AST ALT Alkaline Phosphatase Lactate Dehydrogenase Troponin T 0.089 H C-Reactive Protein Total Protein Albumin LDL Cholesterol Direct Urine Creatinine Urine Total Protein Salicylates Acetaminophen Crossmatch 10/29/21 10/29/21 10/29/21 15:10 15:10 15:10 WBC RBC Hgb Hct MCH RDW Plt Count Lymph % (Auto) [place] % (Auto) Lymph # (Auto) [place] # (Auto) Seg Neutrophils % Seg Neuts % (Manual) Lymphocytes % (Manual) Nucleated RBC % Seg Neutrophils # Seg Neutrophils # Man Monocytes # (Manual) PT INR APTT D-Dimer Heparin Anti-Xa Level ABG pH ABG pO2 ABG HCO3 ABG O2 Saturation ABG Base Excess ABG Hemoglobin Oxyhemoglobin Sodium 136 L Potassium 2.8 L* Chloride 93.4 L Carbon Dioxide 20 L BUN Creatinine Glucose 330 H POC Glucose Hemoglobin A1c Lactic Acid Calcium Phosphorus Magnesium Ferritin AST 1013 H ALT 1289 H Alkaline Phosphatase 246 H Lactate Dehydrogenase Troponin T C-Reactive Protein Total Protein Albumin LDL Cholesterol Direct Urine Creatinine Urine Total Protein Salicylates < 0.3 L Acetaminophen 5.0 L Crossmatch 10/29/21 10/29/21 10/29/21 15:11 16:01 19:29 WBC RBC Hgb Hct MCH RDW Plt Count Lymph % (Auto) [place] % (Auto) Lymph # (Auto) [place] # (Auto) Seg Neutrophils % Seg Neuts % (Manual) Lymphocytes % (Manual) Nucleated RBC % Seg Neutrophils # Seg Neutrophils # Man Monocytes # (Manual) PT INR APTT D-Dimer Heparin Anti-Xa Level ABG pH 7.307 L ABG pO2 64.1 L ABG HCO3 ABG O2 Saturation 90.8 L ABG Base Excess -2.9 L ABG Hemoglobin Oxyhemoglobin 89.3 L Sodium Potassium Chloride Carbon Dioxide BUN Creatinine Glucose POC Glucose Hemoglobin A1c Lactic Acid 2.60 H* Calcium Phosphorus Magnesium 2.90 H Ferritin AST ALT Alkaline Phosphatase Lactate Dehydrogenase Troponin T C-Reactive Protein Total Protein Albumin LDL Cholesterol Direct Urine Creatinine Urine Total Protein Salicylates Acetaminophen Crossmatch 10/29/21 10/29/21 10/30/21 19:40 22:34 04:30 WBC 16.2 H RBC Hgb Hct MCH 26 L RDW 15.5 H Plt Count Lymph % (Auto) 6.2 L [place] % (Auto) Lymph # (Auto) 1.0 L [place] # (Auto) 0.9 H Seg Neutrophils % 88.1 H Seg Neuts % (Manual) Lymphocytes % (Manual) Nucleated RBC % Seg Neutrophils # 14.2 H Seg Neutrophils # Man Monocytes # (Manual) PT INR APTT D-Dimer Heparin Anti-Xa Level ABG pH ABG pO2 ABG HCO3 ABG O2 Saturation ABG Base Excess ABG Hemoglobin Oxyhemoglobin Sodium Potassium Chloride Carbon Dioxide BUN Creatinine Glucose POC Glucose Hemoglobin A1c Lactic Acid Calcium Phosphorus Magnesium Ferritin AST ALT Alkaline Phosphatase Lactate Dehydrogenase Troponin T 1.950 H* D 1.150 H* D C-Reactive Protein Total Protein Albumin LDL Cholesterol Direct 43 L Urine Creatinine Urine Total Protein Salicylates Acetaminophen Crossmatch 10/30/21 10/30/21 10/30/21 04:30 04:35 05:45 WBC RBC Hgb Hct MCH RDW Plt Count Lymph % (Auto) [place] % (Auto) Lymph # (Auto) [place] # (Auto) Seg Neutrophils % Seg Neuts % (Manual) Lymphocytes % (Manual) Nucleated RBC % Seg Neutrophils # Seg Neutrophils # Man Monocytes # (Manual) PT INR APTT D-Dimer Heparin Anti-Xa Level ABG pH ABG pO2 69.5 L ABG HCO3 ABG O2 Saturation ABG Base Excess -2.7 L ABG Hemoglobin Oxyhemoglobin 94.7 L Sodium Potassium Chloride Carbon Dioxide 21 L BUN Creatinine Glucose 159 H POC Glucose 151 H Hemoglobin A1c Lactic Acid Calcium 7.9 L D Phosphorus Magnesium Ferritin AST 461 H ALT 686 H Alkaline Phosphatase 130 H Lactate Dehydrogenase Troponin T C-Reactive Protein Total Protein 5.6 L D Albumin 3.2 L LDL Cholesterol Direct Urine Creatinine Urine Total Protein Salicylates Acetaminophen Crossmatch 10/30/21 10/30/21 10/30/21 11:24 15:59 16:30 WBC RBC Hgb Hct MCH RDW Plt Count Lymph % (Auto) [place] % (Auto) Lymph # (Auto) [place] # (Auto) Seg Neutrophils % Seg Neuts % (Manual) Lymphocytes % (Manual) Nucleated RBC % Seg Neutrophils # Seg Neutrophils # Man Monocytes # (Manual) PT 17.2 H INR 1.27 H APTT 44.4 H D-Dimer Heparin Anti-Xa Level ABG pH ABG pO2 ABG HCO3 ABG O2 Saturation ABG Base Excess ABG Hemoglobin Oxyhemoglobin Sodium Potassium Chloride Carbon Dioxide BUN Creatinine Glucose POC Glucose 153 H 109 H Hemoglobin A1c Lactic Acid Calcium Phosphorus Magnesium Ferritin AST ALT Alkaline Phosphatase Lactate Dehydrogenase Troponin T C-Reactive Protein Total Protein Albumin LDL Cholesterol Direct Urine Creatinine Urine Total Protein Salicylates Acetaminophen Crossmatch 10/30/21 10/30/21 10/30/21 23:00 Unknown Unknown WBC RBC Hgb Hct MCH RDW Plt Count Lymph % (Auto) [place] % (Auto) Lymph # (Auto) [place] # (Auto) Seg Neutrophils % Seg Neuts % (Manual) Lymphocytes % (Manual) Nucleated RBC % Seg Neutrophils # Seg Neutrophils # Man Monocytes # (Manual) PT INR APTT D-Dimer > 60977 H Heparin Anti-Xa Level 0.82 H ABG pH ABG pO2 ABG HCO3 ABG O2 Saturation ABG Base Excess ABG Hemoglobin Oxyhemoglobin Sodium Potassium Chloride Carbon Dioxide BUN Creatinine Glucose POC Glucose Hemoglobin A1c Lactic Acid Calcium Phosphorus Magnesium Ferritin 208.4 H AST ALT Alkaline Phosphatase Lactate Dehydrogenase Troponin T C-Reactive Protein Total Protein Albumin LDL Cholesterol Direct Urine Creatinine Urine Total Protein Salicylates Acetaminophen Crossmatch 10/30/21 10/31/21 10/31/21 Unknown 04:30 04:30 WBC 14.4 H RBC Hgb Hct MCH 26 L RDW Plt Count Lymph % (Auto) [place] % (Auto) Lymph # (Auto) [place] # (Auto) Seg Neutrophils % Seg Neuts % (Manual) Lymphocytes % (Manual) Nucleated RBC % Seg Neutrophils # Seg Neutrophils # Man Monocytes # (Manual) PT INR APTT D-Dimer Heparin Anti-Xa Level ABG pH ABG pO2 ABG HCO3 ABG O2 Saturation ABG Base Excess ABG Hemoglobin Oxyhemoglobin Sodium Potassium 3.5 L Chloride 107.5 H Carbon Dioxide 20 L BUN 28 H Creatinine 1.7 H Glucose 113 H POC Glucose Hemoglobin A1c Lactic Acid Calcium 7.9 L Phosphorus Magnesium Ferritin AST ALT Alkaline Phosphatase Lactate Dehydrogenase 469 H Troponin T C-Reactive Protein 13.40 H Total Protein Albumin LDL Cholesterol Direct Urine Creatinine Urine Total Protein Salicylates Acetaminophen Crossmatch 10/31/21 10/31/21 10/31/21 04:30 05:11 15:30 WBC RBC Hgb Hct MCH RDW Plt Count Lymph % (Auto) [place] % (Auto) Lymph # (Auto) [place] # (Auto) Seg Neutrophils % Seg Neuts % (Manual) Lymphocytes % (Manual) Nucleated RBC % Seg Neutrophils # Seg Neutrophils # Man Monocytes # (Manual) PT INR APTT D-Dimer Heparin Anti-Xa Level ABG pH 7.222 L ABG pO2 61.5 L ABG HCO3 ABG O2 Saturation 86.2 L ABG Base Excess -6.3 L ABG Hemoglobin 11.2 L Oxyhemoglobin 84.5 L Sodium Potassium Chloride Carbon Dioxide BUN Creatinine Glucose POC Glucose 106 H Hemoglobin A1c 6.7 H Lactic Acid Calcium Phosphorus Magnesium Ferritin AST ALT Alkaline Phosphatase Lactate Dehydrogenase Troponin T C-Reactive Protein Total Protein Albumin LDL Cholesterol Direct Urine Creatinine Urine Total Protein Salicylates Acetaminophen Crossmatch 10/31/21 10/31/21 10/31/21 16:07 16:35 17:45 WBC RBC Hgb Hct MCH RDW Plt Count Lymph % (Auto) [place] % (Auto) Lymph # (Auto) [place] # (Auto) Seg Neutrophils % Seg Neuts % (Manual) Lymphocytes % (Manual) Nucleated RBC % Seg Neutrophils # Seg Neutrophils # Man Monocytes # (Manual) PT INR APTT D-Dimer Heparin Anti-Xa Level ABG pH 7.267 L ABG pO2 58.3 L ABG HCO3 ABG O2 Saturation 88.3 L ABG Base Excess -5.9 L ABG Hemoglobin 10.1 L Oxyhemoglobin 86.5 L Sodium Potassium Chloride Carbon Dioxide BUN Creatinine Glucose POC Glucose 115 H Hemoglobin A1c Lactic Acid Calcium Phosphorus Magnesium Ferritin AST ALT Alkaline Phosphatase Lactate Dehydrogenase Troponin T C-Reactive Protein Total Protein Albumin LDL Cholesterol Direct Urine Creatinine 383.6 H Urine Total Protein Salicylates Acetaminophen Crossmatch 11/01/21 11/01/21 11/01/21 00:06 05:08 06:00 WBC 12.6 H RBC 3.43 L Hgb 8.9 L Hct 28.7 L MCH 26 L RDW 15.7 H Plt Count 130 L Lymph % (Auto) [place] % (Auto) Lymph # (Auto) [place] # (Auto) Seg Neutrophils % Seg Neuts % (Manual) Lymphocytes % (Manual) Nucleated RBC % Seg Neutrophils # Seg Neutrophils # Man Monocytes # (Manual) PT INR APTT D-Dimer Heparin Anti-Xa Level ABG pH ABG pO2 ABG HCO3 ABG O2 Saturation ABG Base Excess ABG Hemoglobin Oxyhemoglobin Sodium Potassium Chloride Carbon Dioxide BUN Creatinine Glucose POC Glucose 114 H 120 H Hemoglobin A1c Lactic Acid Calcium Phosphorus Magnesium Ferritin AST ALT Alkaline Phosphatase Lactate Dehydrogenase Troponin T C-Reactive Protein Total Protein Albumin LDL Cholesterol Direct Urine Creatinine Urine Total Protein Salicylates Acetaminophen Crossmatch 11/01/21 11/01/21 11/01/21 06:00 11:43 14:00 WBC RBC Hgb Hct MCH RDW Plt Count Lymph % (Auto) [place] % (Auto) Lymph # (Auto) [place] # (Auto) Seg Neutrophils % Seg Neuts % (Manual) Lymphocytes % (Manual) Nucleated RBC % Seg Neutrophils # Seg Neutrophils # Man Monocytes # (Manual) PT INR APTT D-Dimer Heparin Anti-Xa Level ABG pH 7.349 L ABG pO2 75.6 L ABG HCO3 ABG O2 Saturation ABG Base Excess -3.9 L ABG Hemoglobin 9.8 L Oxyhemoglobin 93.5 L Sodium Potassium Chloride 114.1 H Carbon Dioxide 20 L BUN 33 H Creatinine Glucose 131 H POC Glucose 151 H Hemoglobin A1c Lactic Acid Calcium 7.7 L Phosphorus Magnesium Ferritin AST 79 H ALT 259 H Alkaline Phosphatase Lactate Dehydrogenase Troponin T C-Reactive Protein Total Protein 5.5 L Albumin 2.7 L LDL Cholesterol Direct Urine Creatinine Urine Total Protein Salicylates Acetaminophen Crossmatch 11/01/21 11/01/21 11/02/21 16:45 22:55 05:12 WBC RBC Hgb Hct MCH RDW Plt Count Lymph % (Auto) [place] % (Auto) Lymph # (Auto) [place] # (Auto) Seg Neutrophils % Seg Neuts % (Manual) Lymphocytes % (Manual) Nucleated RBC % Seg Neutrophils # Seg Neutrophils # Man Monocytes # (Manual) PT INR APTT D-Dimer Heparin Anti-Xa Level ABG pH ABG pO2 ABG HCO3 ABG O2 Saturation ABG Base Excess ABG Hemoglobin Oxyhemoglobin Sodium Potassium Chloride Carbon Dioxide BUN Creatinine Glucose POC Glucose 119 H 129 H 140 H Hemoglobin A1c Lactic Acid Calcium Phosphorus Magnesium Ferritin AST ALT Alkaline Phosphatase Lactate Dehydrogenase Troponin T C-Reactive Protein Total Protein Albumin LDL Cholesterol Direct Urine Creatinine Urine Total Protein Salicylates Acetaminophen Crossmatch 11/02/21 11/02/21 11/02/21 05:35 05:35 09:35 WBC 13.5 H RBC 3.60 L Hgb 9.7 L Hct MCH 27 L RDW 15.7 H Plt Count Lymph % (Auto) [place] % (Auto) Lymph # (Auto) [place] # (Auto) Seg Neutrophils % Seg Neuts % (Manual) Lymphocytes % (Manual) Nucleated RBC % Seg Neutrophils # Seg Neutrophils # Man Monocytes # (Manual) PT INR APTT D-Dimer Heparin Anti-Xa Level ABG pH 7.208 L ABG pO2 75.9 L ABG HCO3 ABG O2 Saturation 93.6 L ABG Base Excess -4.3 L ABG Hemoglobin 9.1 L Oxyhemoglobin 91.6 L Sodium Potassium 5.2 H D Chloride 112.6 H Carbon Dioxide BUN 32 H Creatinine Glucose 152 H POC Glucose Hemoglobin A1c Lactic Acid Calcium 8.2 L Phosphorus Magnesium 2.70 H Ferritin AST ALT Alkaline Phosphatase Lactate Dehydrogenase Troponin T C-Reactive Protein Total Protein Albumin LDL Cholesterol Direct Urine Creatinine Urine Total Protein Salicylates Acetaminophen Crossmatch 11/02/21 11/02/21 11/02/21 11:44 17:13 23:43 WBC RBC Hgb Hct MCH RDW Plt Count Lymph % (Auto) [place] % (Auto) Lymph # (Auto) [place] # (Auto) Seg Neutrophils % Seg Neuts % (Manual) Lymphocytes % (Manual) Nucleated RBC % Seg Neutrophils # Seg Neutrophils # Man Monocytes # (Manual) PT INR APTT D-Dimer Heparin Anti-Xa Level ABG pH ABG pO2 ABG HCO3 ABG O2 Saturation ABG Base Excess ABG Hemoglobin Oxyhemoglobin Sodium Potassium Chloride Carbon Dioxide BUN Creatinine Glucose POC Glucose 173 H 148 H 137 H Hemoglobin A1c Lactic Acid Calcium Phosphorus Magnesium Ferritin AST ALT Alkaline Phosphatase Lactate Dehydrogenase Troponin T C-Reactive Protein Total Protein Albumin LDL Cholesterol Direct Urine Creatinine Urine Total Protein Salicylates Acetaminophen Crossmatch 11/03/21 11/03/21 11/03/21 04:59 06:00 06:00 WBC RBC 3.43 L Hgb 9.1 L Hct 29.0 L MCH 26 L RDW 16.4 H Plt Count Lymph % (Auto) [place] % (Auto) Lymph # (Auto) [place] # (Auto) Seg Neutrophils % Seg Neuts % (Manual) Lymphocytes % (Manual) Nucleated RBC % Seg Neutrophils # Seg Neutrophils # Man Monocytes # (Manual) PT INR APTT D-Dimer Heparin Anti-Xa Level 0.17 L ABG pH ABG pO2 ABG HCO3 ABG O2 Saturation ABG Base Excess ABG Hemoglobin Oxyhemoglobin Sodium Potassium Chloride Carbon Dioxide BUN Creatinine Glucose POC Glucose 167 H Hemoglobin A1c Lactic Acid Calcium Phosphorus Magnesium Ferritin AST ALT Alkaline Phosphatase Lactate Dehydrogenase Troponin T C-Reactive Protein Total Protein Albumin LDL Cholesterol Direct Urine Creatinine Urine Total Protein Salicylates Acetaminophen Crossmatch 11/03/21 11/03/21 11/03/21 06:00 09:20 11:58 WBC RBC Hgb Hct MCH RDW Plt Count Lymph % (Auto) [place] % (Auto) Lymph # (Auto) [place] # (Auto) Seg Neutrophils % Seg Neuts % (Manual) Lymphocytes % (Manual) Nucleated RBC % Seg Neutrophils # Seg Neutrophils # Man Monocytes # (Manual) PT INR APTT D-Dimer Heparin Anti-Xa Level ABG pH 7.274 L ABG pO2 75.6 L ABG HCO3 ABG O2 Saturation 94.9 L ABG Base Excess -2.5 L ABG Hemoglobin 9.3 L Oxyhemoglobin 92.9 L Sodium 149 H Potassium Chloride 117.5 H Carbon Dioxide BUN 32 H Creatinine Glucose 173 H POC Glucose 192 H Hemoglobin A1c Lactic Acid Calcium 8.1 L Phosphorus Magnesium Ferritin AST ALT Alkaline Phosphatase Lactate Dehydrogenase Troponin T C-Reactive Protein Total Protein Albumin LDL Cholesterol Direct Urine Creatinine Urine Total Protein Salicylates Acetaminophen Crossmatch 11/03/21 11/03/21 11/04/21 18:22 Unknown 00:09 WBC RBC Hgb Hct MCH RDW Plt Count Lymph % (Auto) [place] % (Auto) Lymph # (Auto) [place] # (Auto) Seg Neutrophils % Seg Neuts % (Manual) Lymphocytes % (Manual) Nucleated RBC % Seg Neutrophils # Seg Neutrophils # Man Monocytes # (Manual) PT INR APTT D-Dimer Heparin Anti-Xa Level 0.29 L ABG pH ABG pO2 ABG HCO3 ABG O2 Saturation ABG Base Excess ABG Hemoglobin Oxyhemoglobin Sodium Potassium Chloride Carbon Dioxide BUN Creatinine Glucose POC Glucose 178 H 221 H Hemoglobin A1c Lactic Acid Calcium Phosphorus Magnesium Ferritin AST ALT Alkaline Phosphatase Lactate Dehydrogenase Troponin T C-Reactive Protein Total Protein Albumin LDL Cholesterol Direct Urine Creatinine Urine Total Protein Salicylates Acetaminophen Crossmatch 11/04/21 11/04/21 11/04/21 05:09 09:40 09:40 WBC 16.8 H RBC Hgb Hct MCH 27 L RDW 16.5 H Plt Count Lymph % (Auto) [place] % (Auto) Lymph # (Auto) [place] # (Auto) Seg Neutrophils % Seg Neuts % (Manual) Lymphocytes % (Manual) Nucleated RBC % Seg Neutrophils # Seg Neutrophils # Man Monocytes # (Manual) PT INR APTT D-Dimer Heparin Anti-Xa Level ABG pH ABG pO2 ABG HCO3 ABG O2 Saturation ABG Base Excess ABG Hemoglobin Oxyhemoglobin Sodium Potassium 5.9 H Chloride 108.5 H Carbon Dioxide BUN 54 H Creatinine 1.8 H Glucose 198 H POC Glucose 182 H Hemoglobin A1c Lactic Acid Calcium Phosphorus Magnesium 3.00 H Ferritin AST ALT Alkaline Phosphatase Lactate Dehydrogenase Troponin T C-Reactive Protein Total Protein Albumin LDL Cholesterol Direct Urine Creatinine Urine Total Protein Salicylates Acetaminophen Crossmatch 11/04/21 11/04/21 11/04/21 12:13 13:34 14:05 WBC RBC Hgb Hct MCH RDW Plt Count Lymph % (Auto) [place] % (Auto) Lymph # (Auto) [place] # (Auto) Seg Neutrophils % Seg Neuts % (Manual) Lymphocytes % (Manual) Nucleated RBC % Seg Neutrophils # Seg Neutrophils # Man Monocytes # (Manual) PT INR APTT D-Dimer Heparin Anti-Xa Level ABG pH 7.223 L ABG pO2 71.3 L ABG HCO3 ABG O2 Saturation 92.8 L ABG Base Excess ABG Hemoglobin 8.2 L Oxyhemoglobin 91.0 L Sodium Potassium Chloride Carbon Dioxide BUN Creatinine Glucose POC Glucose 184 H Hemoglobin A1c Lactic Acid Calcium Phosphorus Magnesium Ferritin AST ALT Alkaline Phosphatase Lactate Dehydrogenase Troponin T C-Reactive Protein Total Protein Albumin LDL Cholesterol Direct Urine Creatinine 184.6 H Urine Total Protein Salicylates Acetaminophen Crossmatch 11/04/21 11/04/21 11/05/21 18:02 Unknown 00:07 WBC RBC Hgb Hct MCH RDW Plt Count Lymph % (Auto) [place] % (Auto) Lymph # (Auto) [place] # (Auto) Seg Neutrophils % Seg Neuts % (Manual) Lymphocytes % (Manual) Nucleated RBC % Seg Neutrophils # Seg Neutrophils # Man Monocytes # (Manual) PT INR APTT D-Dimer Heparin Anti-Xa Level ABG pH ABG pO2 ABG HCO3 ABG O2 Saturation ABG Base Excess ABG Hemoglobin Oxyhemoglobin Sodium Potassium Chloride Carbon Dioxide BUN Creatinine Glucose POC Glucose 262 H 259 H Hemoglobin A1c Lactic Acid Calcium Phosphorus Magnesium Ferritin AST ALT Alkaline Phosphatase Lactate Dehydrogenase Troponin T C-Reactive Protein Total Protein Albumin LDL Cholesterol Direct Urine Creatinine 190.9 H Urine Total Protein 172 H Salicylates Acetaminophen Crossmatch 11/05/21 11/05/21 11/05/21 04:20 04:20 05:30 WBC 17.9 H RBC 3.64 L Hgb 9.7 L Hct MCH 27 L RDW 16.4 H Plt Count Lymph % (Auto) [place] % (Auto) Lymph # (Auto) [place] # (Auto) Seg Neutrophils % Seg Neuts % (Manual) Lymphocytes % (Manual) Nucleated RBC % Seg Neutrophils # Seg Neutrophils # Man Monocytes # (Manual) PT INR APTT D-Dimer Heparin Anti-Xa Level ABG pH ABG pO2 ABG HCO3 ABG O2 Saturation ABG Base Excess ABG Hemoglobin Oxyhemoglobin Sodium Potassium 5.6 H Chloride 108.4 H Carbon Dioxide BUN 71 H Creatinine 1.9 H Glucose 270 H POC Glucose 283 H Hemoglobin A1c Lactic Acid Calcium Phosphorus Magnesium Ferritin AST ALT Alkaline Phosphatase Lactate Dehydrogenase Troponin T C-Reactive Protein Total Protein Albumin LDL Cholesterol Direct Urine Creatinine Urine Total Protein Salicylates Acetaminophen Crossmatch 11/05/21 11/05/21 11/05/21 10:05 12:10 15:29 WBC RBC Hgb Hct MCH RDW Plt Count Lymph % (Auto) [place] % (Auto) Lymph # (Auto) [place] # (Auto) Seg Neutrophils % Seg Neuts % (Manual) Lymphocytes % (Manual) Nucleated RBC % Seg Neutrophils # Seg Neutrophils # Man Monocytes # (Manual) PT INR APTT D-Dimer Heparin Anti-Xa Level ABG pH 7.248 L ABG pO2 73.7 L ABG HCO3 26.2 H ABG O2 Saturation 93.1 L ABG Base Excess ABG Hemoglobin 8.9 L Oxyhemoglobin 91.4 L Sodium Potassium Chloride Carbon Dioxide BUN Creatinine Glucose POC Glucose 225 H 199 H Hemoglobin A1c Lactic Acid Calcium Phosphorus Magnesium Ferritin AST ALT Alkaline Phosphatase Lactate Dehydrogenase Troponin T C-Reactive Protein Total Protein Albumin LDL Cholesterol Direct Urine Creatinine Urine Total Protein Salicylates Acetaminophen Crossmatch 11/05/21 11/05/21 11/05/21 15:51 17:32 17:40 WBC RBC Hgb Hct MCH RDW Plt Count Lymph % (Auto) [place] % (Auto) Lymph # (Auto) [place] # (Auto) Seg Neutrophils % Seg Neuts % (Manual) Lymphocytes % (Manual) Nucleated RBC % Seg Neutrophils # Seg Neutrophils # Man Monocytes # (Manual) PT INR APTT D-Dimer Heparin Anti-Xa Level ABG pH ABG pO2 ABG HCO3 ABG O2 Saturation ABG Base Excess ABG Hemoglobin Oxyhemoglobin Sodium Potassium 5.2 H Chloride 107.8 H Carbon Dioxide BUN 79 H Creatinine 1.9 H Glucose 204 H POC Glucose 278 H 197 H Hemoglobin A1c Lactic Acid Calcium Phosphorus Magnesium Ferritin AST ALT Alkaline Phosphatase Lactate Dehydrogenase Troponin T C-Reactive Protein Total Protein Albumin LDL Cholesterol Direct Urine Creatinine Urine Total Protein Salicylates Acetaminophen Crossmatch 11/05/21 11/05/21 11/05/21 21:25 22:22 23:43 WBC RBC Hgb Hct MCH RDW Plt Count Lymph % (Auto) [place] % (Auto) Lymph # (Auto) [place] # (Auto) Seg Neutrophils % Seg Neuts % (Manual) Lymphocytes % (Manual) Nucleated RBC % Seg Neutrophils # Seg Neutrophils # Man Monocytes # (Manual) PT INR APTT D-Dimer Heparin Anti-Xa Level ABG pH ABG pO2 ABG HCO3 ABG O2 Saturation ABG Base Excess ABG Hemoglobin Oxyhemoglobin Sodium Potassium 5.3 H Chloride 109.2 H Carbon Dioxide BUN 81 H Creatinine 2.0 H Glucose 195 H POC Glucose 180 H 203 H Hemoglobin A1c Lactic Acid Calcium Phosphorus Magnesium Ferritin AST ALT Alkaline Phosphatase Lactate Dehydrogenase Troponin T C-Reactive Protein Total Protein Albumin LDL Cholesterol Direct Urine Creatinine Urine Total Protein Salicylates Acetaminophen Crossmatch 11/05/21 11/06/21 11/06/21 Unknown 02:35 05:09 WBC RBC Hgb Hct MCH RDW Plt Count Lymph % (Auto) [place] % (Auto) Lymph # (Auto) [place] # (Auto) Seg Neutrophils % Seg Neuts % (Manual) Lymphocytes % (Manual) Nucleated RBC % Seg Neutrophils # Seg Neutrophils # Man Monocytes # (Manual) PT INR APTT D-Dimer Heparin Anti-Xa Level ABG pH ABG pO2 ABG HCO3 ABG O2 Saturation ABG Base Excess ABG Hemoglobin Oxyhemoglobin Sodium 146 H Potassium 6.0 H Chloride 108.1 H 107.1 H Carbon Dioxide 21 L BUN 80 H 84 H Creatinine 2.0 H 2.0 H Glucose 238 H 235 H POC Glucose 215 H Hemoglobin A1c Lactic Acid Calcium Phosphorus Magnesium 2.80 H Ferritin AST ALT 77 H Alkaline Phosphatase Lactate Dehydrogenase Troponin T C-Reactive Protein Total Protein Albumin 3.0 L LDL Cholesterol Direct Urine Creatinine Urine Total Protein Salicylates Acetaminophen Crossmatch 11/06/21 11/06/21 11/06/21 05:40 08:07 08:07 WBC RBC Hgb Hct MCH RDW Plt Count Lymph % (Auto) [place] % (Auto) Lymph # (Auto) [place] # (Auto) Seg Neutrophils % Seg Neuts % (Manual) Lymphocytes % (Manual) Nucleated RBC % Seg Neutrophils # Seg Neutrophils # Man Monocytes # (Manual) PT INR APTT D-Dimer Heparin Anti-Xa Level 1.24 H ABG pH 7.311 L ABG pO2 72.8 L ABG HCO3 29.7 H ABG O2 Saturation 94.1 L ABG Base Excess ABG Hemoglobin 11.4 L Oxyhemoglobin 92.3 L Sodium Potassium 5.2 H Chloride Carbon Dioxide BUN 85 H Creatinine 2.3 H Glucose 236 H POC Glucose Hemoglobin A1c Lactic Acid Calcium Phosphorus Magnesium Ferritin AST ALT Alkaline Phosphatase Lactate Dehydrogenase Troponin T C-Reactive Protein Total Protein Albumin LDL Cholesterol Direct Urine Creatinine Urine Total Protein Salicylates Acetaminophen Crossmatch 11/06/21 11/06/21 11/06/21 12:14 12:57 14:28 WBC RBC Hgb Hct MCH RDW Plt Count Lymph % (Auto) [place] % (Auto) Lymph # (Auto) [place] # (Auto) Seg Neutrophils % Seg Neuts % (Manual) Lymphocytes % (Manual) Nucleated RBC % Seg Neutrophils # Seg Neutrophils # Man Monocytes # (Manual) PT INR APTT D-Dimer Heparin Anti-Xa Level ABG pH 7.282 L ABG pO2 72.6 L ABG HCO3 30.8 H ABG O2 Saturation 93.7 L ABG Base Excess 3.2 H ABG Hemoglobin 8.6 L Oxyhemoglobin 91.8 L Sodium Potassium Chloride Carbon Dioxide BUN 91 H Creatinine 2.6 H Glucose 259 H POC Glucose 225 H Hemoglobin A1c Lactic Acid Calcium Phosphorus Magnesium Ferritin AST ALT Alkaline Phosphatase Lactate Dehydrogenase Troponin T C-Reactive Protein Total Protein Albumin LDL Cholesterol Direct Urine Creatinine Urine Total Protein Salicylates Acetaminophen Crossmatch 11/06/21 11/06/21 11/06/21 17:28 19:20 21:30 WBC RBC Hgb Hct MCH RDW Plt Count Lymph % (Auto) [place] % (Auto) Lymph # (Auto) [place] # (Auto) Seg Neutrophils % Seg Neuts % (Manual) Lymphocytes % (Manual) Nucleated RBC % Seg Neutrophils # Seg Neutrophils # Man Monocytes # (Manual) PT INR APTT D-Dimer Heparin Anti-Xa Level 0.73 H ABG pH ABG pO2 ABG HCO3 ABG O2 Saturation ABG Base Excess ABG Hemoglobin Oxyhemoglobin Sodium Potassium Chloride Carbon Dioxide BUN 95 H Creatinine 2.9 H Glucose 233 H POC Glucose 206 H Hemoglobin A1c Lactic Acid Calcium Phosphorus Magnesium Ferritin AST ALT Alkaline Phosphatase Lactate Dehydrogenase Troponin T C-Reactive Protein Total Protein Albumin LDL Cholesterol Direct Urine Creatinine Urine Total Protein Salicylates Acetaminophen Crossmatch 11/06/21 11/07/21 11/07/21 22:56 05:06 06:30 WBC RBC Hgb Hct MCH RDW Plt Count Lymph % (Auto) [place] % (Auto) Lymph # (Auto) [place] # (Auto) Seg Neutrophils % Seg Neuts % (Manual) Lymphocytes % (Manual) Nucleated RBC % Seg Neutrophils # Seg Neutrophils # Man Monocytes # (Manual) PT INR APTT D-Dimer Heparin Anti-Xa Level ABG pH ABG pO2 ABG HCO3 ABG O2 Saturation ABG Base Excess ABG Hemoglobin Oxyhemoglobin Sodium 146 H Potassium Chloride Carbon Dioxide BUN 98 H Creatinine 2.8 H Glucose 202 H POC Glucose 215 H 172 H Hemoglobin A1c Lactic Acid Calcium Phosphorus 4.90 H D Magnesium 2.90 H Ferritin AST ALT Alkaline Phosphatase Lactate Dehydrogenase Troponin T C-Reactive Protein Total Protein Albumin LDL Cholesterol Direct Urine Creatinine Urine Total Protein Salicylates Acetaminophen Crossmatch 11/07/21 11/07/21 11/07/21 06:30 11:26 12:15 WBC 16.0 H RBC 3.06 L Hgb 8.2 L Hct 26.1 L MCH 27 L RDW 16.2 H Plt Count Lymph % (Auto) [place] % (Auto) Lymph # (Auto) [place] # (Auto) Seg Neutrophils % Seg Neuts % (Manual) 77.0 H Lymphocytes % (Manual) 11.0 L Nucleated RBC % 2.0 H Seg Neutrophils # Seg Neutrophils # Man 12.3 H Monocytes # (Manual) PT INR APTT D-Dimer Heparin Anti-Xa Level ABG pH 7.298 L ABG pO2 73.0 L ABG HCO3 33.3 H ABG O2 Saturation 94.4 L ABG Base Excess 5.8 H ABG Hemoglobin 8.2 L Oxyhemoglobin 92.7 L Sodium Potassium Chloride Carbon Dioxide BUN Creatinine Glucose POC Glucose 179 H Hemoglobin A1c Lactic Acid Calcium Phosphorus Magnesium Ferritin AST ALT Alkaline Phosphatase Lactate Dehydrogenase Troponin T C-Reactive Protein Total Protein Albumin LDL Cholesterol Direct Urine Creatinine Urine Total Protein Salicylates Acetaminophen Crossmatch 11/07/21 11/07/21 11/07/21 17:57 22:16 23:49 WBC RBC Hgb Hct MCH RDW Plt Count Lymph % (Auto) [place] % (Auto) Lymph # (Auto) [place] # (Auto) Seg Neutrophils % Seg Neuts % (Manual) Lymphocytes % (Manual) Nucleated RBC % Seg Neutrophils # Seg Neutrophils # Man Monocytes # (Manual) PT INR APTT D-Dimer Heparin Anti-Xa Level ABG pH ABG pO2 ABG HCO3 ABG O2 Saturation ABG Base Excess ABG Hemoglobin Oxyhemoglobin Sodium Potassium Chloride Carbon Dioxide BUN Creatinine Glucose POC Glucose 166 H 223 H 190 H Hemoglobin A1c Lactic Acid Calcium Phosphorus Magnesium Ferritin AST ALT Alkaline Phosphatase Lactate Dehydrogenase Troponin T C-Reactive Protein Total Protein Albumin LDL Cholesterol Direct Urine Creatinine Urine Total Protein Salicylates Acetaminophen Crossmatch 11/08/21 11/08/21 11/08/21 04:20 04:20 06:16 WBC 22.1 H RBC 3.01 L Hgb 8.1 L Hct 25.6 L MCH 27 L RDW 15.4 H Plt Count Lymph % (Auto) [place] % (Auto) Lymph # (Auto) [place] # (Auto) Seg Neutrophils % Seg Neuts % (Manual) Lymphocytes % (Manual) Nucleated RBC % Seg Neutrophils # Seg Neutrophils # Man Monocytes # (Manual) PT INR APTT D-Dimer Heparin Anti-Xa Level ABG pH ABG pO2 ABG HCO3 ABG O2 Saturation ABG Base Excess ABG Hemoglobin Oxyhemoglobin Sodium 151 H Potassium 3.1 L D Chloride 107.3 H Carbon Dioxide 31 H BUN 82 H Creatinine 1.8 H Glucose 232 H POC Glucose 198 H Hemoglobin A1c Lactic Acid Calcium 8.1 L Phosphorus Magnesium Ferritin AST ALT Alkaline Phosphatase Lactate Dehydrogenase Troponin T C-Reactive Protein Total Protein Albumin LDL Cholesterol Direct Urine Creatinine Urine Total Protein Salicylates Acetaminophen Crossmatch 11/08/21 11/08/21 11/08/21 11:38 12:00 18:29 WBC RBC Hgb Hct MCH RDW Plt Count Lymph % (Auto) [place] % (Auto) Lymph # (Auto) [place] # (Auto) Seg Neutrophils % Seg Neuts % (Manual) Lymphocytes % (Manual) Nucleated RBC % Seg Neutrophils # Seg Neutrophils # Man Monocytes # (Manual) PT INR APTT D-Dimer Heparin Anti-Xa Level ABG pH ABG pO2 ABG HCO3 ABG O2 Saturation ABG Base Excess ABG Hemoglobin Oxyhemoglobin Sodium Potassium 3.0 L Chloride Carbon Dioxide BUN Creatinine Glucose POC Glucose 190 H 211 H Hemoglobin A1c Lactic Acid Calcium Phosphorus Magnesium Ferritin AST ALT Alkaline Phosphatase Lactate Dehydrogenase Troponin T C-Reactive Protein Total Protein Albumin LDL Cholesterol Direct Urine Creatinine Urine Total Protein Salicylates Acetaminophen Crossmatch 11/08/21 11/08/21 11/09/21 21:34 21:40 00:36 WBC RBC Hgb Hct MCH RDW Plt Count Lymph % (Auto) [place] % (Auto) Lymph # (Auto) [place] # (Auto) Seg Neutrophils % Seg Neuts % (Manual) Lymphocytes % (Manual) Nucleated RBC % Seg Neutrophils # Seg Neutrophils # Man Monocytes # (Manual) PT INR APTT D-Dimer Heparin Anti-Xa Level ABG pH ABG pO2 ABG HCO3 ABG O2 Saturation ABG Base Excess ABG Hemoglobin Oxyhemoglobin Sodium 148 H Potassium 2.8 L* Chloride Carbon Dioxide 31 H BUN 68 H Creatinine 1.5 H Glucose 191 H POC Glucose 194 H 140 H Hemoglobin A1c Lactic Acid Calcium 8.2 L Phosphorus Magnesium Ferritin AST ALT Alkaline Phosphatase Lactate Dehydrogenase Troponin T C-Reactive Protein Total Protein Albumin LDL Cholesterol Direct Urine Creatinine Urine Total Protein Salicylates Acetaminophen Crossmatch 11/09/21 11/09/21 11/09/21 04:51 04:51 04:51 WBC 27.6 H RBC 3.18 L Hgb 8.4 L Hct 26.6 L MCH 27 L RDW 15.3 H Plt Count Lymph % (Auto) [place] % (Auto) Lymph # (Auto) [place] # (Auto) Seg Neutrophils % Seg Neuts % (Manual) Lymphocytes % (Manual) Nucleated RBC % Seg Neutrophils # Seg Neutrophils # Man Monocytes # (Manual) PT INR APTT D-Dimer Heparin Anti-Xa Level 0.18 L ABG pH ABG pO2 ABG HCO3 ABG O2 Saturation ABG Base Excess ABG Hemoglobin Oxyhemoglobin Sodium 148 H Potassium 2.7 L* Chloride Carbon Dioxide BUN 59 H Creatinine 1.4 H Glucose 143 H POC Glucose Hemoglobin A1c Lactic Acid Calcium 8.3 L Phosphorus Magnesium Ferritin AST ALT Alkaline Phosphatase Lactate Dehydrogenase Troponin T C-Reactive Protein Total Protein Albumin LDL Cholesterol Direct Urine Creatinine Urine Total Protein Salicylates Acetaminophen Crossmatch 11/09/21 11/09/21 11/09/21 05:52 08:45 11:00 WBC RBC Hgb Hct MCH RDW Plt Count Lymph % (Auto) [place] % (Auto) Lymph # (Auto) [place] # (Auto) Seg Neutrophils % Seg Neuts % (Manual) Lymphocytes % (Manual) Nucleated RBC % Seg Neutrophils # Seg Neutrophils # Man Monocytes # (Manual) PT INR APTT D-Dimer Heparin Anti-Xa Level ABG pH ABG pO2 73.2 L ABG HCO3 33.8 H ABG O2 Saturation ABG Base Excess 8.7 H ABG Hemoglobin 8.5 L Oxyhemoglobin 94.1 L Sodium Potassium Chloride Carbon Dioxide BUN Creatinine Glucose POC Glucose 166 H 136 H Hemoglobin A1c Lactic Acid Calcium Phosphorus Magnesium Ferritin AST ALT Alkaline Phosphatase Lactate Dehydrogenase Troponin T C-Reactive Protein Total Protein Albumin LDL Cholesterol Direct Urine Creatinine Urine Total Protein Salicylates Acetaminophen Crossmatch 11/09/21 11/09/21 11/09/21 15:48 16:10 20:31 WBC RBC Hgb Hct MCH RDW Plt Count Lymph % (Auto) [place] % (Auto) Lymph # (Auto) [place] # (Auto) Seg Neutrophils % Seg Neuts % (Manual) Lymphocytes % (Manual) Nucleated RBC % Seg Neutrophils # Seg Neutrophils # Man Monocytes # (Manual) PT INR APTT D-Dimer Heparin Anti-Xa Level ABG pH ABG pO2 ABG HCO3 ABG O2 Saturation ABG Base Excess ABG Hemoglobin Oxyhemoglobin Sodium Potassium 2.8 L* Chloride Carbon Dioxide 31 H BUN 53 H Creatinine 1.3 H Glucose 208 H POC Glucose 203 H 166 H Hemoglobin A1c Lactic Acid Calcium 7.9 L Phosphorus Magnesium Ferritin AST ALT Alkaline Phosphatase Lactate Dehydrogenase Troponin T C-Reactive Protein Total Protein Albumin LDL Cholesterol Direct Urine Creatinine Urine Total Protein Salicylates Acetaminophen Crossmatch 11/09/21 11/09/21 11/09/21 21:30 23:16 Unknown WBC RBC Hgb Hct MCH RDW Plt Count Lymph % (Auto) [place] % (Auto) Lymph # (Auto) [place] # (Auto) Seg Neutrophils % Seg Neuts % (Manual) Lymphocytes % (Manual) Nucleated RBC % Seg Neutrophils # Seg Neutrophils # Man Monocytes # (Manual) PT INR APTT D-Dimer Heparin Anti-Xa Level 0.24 L ABG pH ABG pO2 ABG HCO3 ABG O2 Saturation ABG Base Excess ABG Hemoglobin Oxyhemoglobin Sodium Potassium Chloride Carbon Dioxide BUN 52 H Creatinine 1.4 H Glucose 185 H POC Glucose 172 H Hemoglobin A1c Lactic Acid Calcium 7.8 L Phosphorus Magnesium Ferritin AST ALT Alkaline Phosphatase Lactate Dehydrogenase Troponin T C-Reactive Protein Total Protein Albumin LDL Cholesterol Direct Urine Creatinine Urine Total Protein Salicylates Acetaminophen Crossmatch 11/10/21 11/10/21 11/10/21 02:00 04:17 04:17 WBC 24.5 H RBC 2.75 L Hgb 7.5 L Hct 22.9 L MCH 27 L RDW Plt Count Lymph % (Auto) [place] % (Auto) Lymph # (Auto) [place] # (Auto) Seg Neutrophils % Seg Neuts % (Manual) Lymphocytes % (Manual) Nucleated RBC % Seg Neutrophils # Seg Neutrophils # Man Monocytes # (Manual) PT INR APTT D-Dimer Heparin Anti-Xa Level 0.26 L ABG pH ABG pO2 ABG HCO3 ABG O2 Saturation ABG Base Excess ABG Hemoglobin Oxyhemoglobin Sodium Potassium 2.9 L* Chloride Carbon Dioxide 35 H BUN 48 H Creatinine Glucose 212 H POC Glucose Hemoglobin A1c Lactic Acid Calcium 8.1 L Phosphorus Magnesium Ferritin AST ALT Alkaline Phosphatase Lactate Dehydrogenase Troponin T C-Reactive Protein Total Protein Albumin LDL Cholesterol Direct Urine Creatinine Urine Total Protein Salicylates Acetaminophen Crossmatch 11/10/21 11/10/21 11/10/21 05:01 08:39 11:03 WBC RBC Hgb Hct MCH RDW Plt Count Lymph % (Auto) [place] % (Auto) Lymph # (Auto) [place] # (Auto) Seg Neutrophils % Seg Neuts % (Manual) Lymphocytes % (Manual) Nucleated RBC % Seg Neutrophils # Seg Neutrophils # Man Monocytes # (Manual) PT INR APTT D-Dimer Heparin Anti-Xa Level 0.12 L ABG pH ABG pO2 ABG HCO3 ABG O2 Saturation ABG Base Excess ABG Hemoglobin Oxyhemoglobin Sodium Potassium Chloride Carbon Dioxide BUN Creatinine Glucose POC Glucose 203 H 152 H Hemoglobin A1c Lactic Acid Calcium Phosphorus Magnesium Ferritin AST ALT Alkaline Phosphatase Lactate Dehydrogenase Troponin T C-Reactive Protein Total Protein Albumin LDL Cholesterol Direct Urine Creatinine Urine Total Protein Salicylates Acetaminophen Crossmatch 11/10/21 11/10/21 11/10/21 12:45 15:43 21:05 WBC RBC Hgb Hct MCH RDW Plt Count Lymph % (Auto) [place] % (Auto) Lymph # (Auto) [place] # (Auto) Seg Neutrophils % Seg Neuts % (Manual) Lymphocytes % (Manual) Nucleated RBC % Seg Neutrophils # Seg Neutrophils # Man Monocytes # (Manual) PT INR APTT D-Dimer Heparin Anti-Xa Level ABG pH ABG pO2 ABG HCO3 ABG O2 Saturation ABG Base Excess ABG Hemoglobin Oxyhemoglobin Sodium 146 H Potassium 3.3 L Chloride Carbon Dioxide 31 H BUN 43 H Creatinine Glucose 155 H POC Glucose 139 H 139 H Hemoglobin A1c Lactic Acid Calcium 8.3 L Phosphorus Magnesium Ferritin AST ALT Alkaline Phosphatase Lactate Dehydrogenase Troponin T C-Reactive Protein Total Protein Albumin LDL Cholesterol Direct Urine Creatinine Urine Total Protein Salicylates Acetaminophen Crossmatch 11/10/21 11/11/21 11/11/21 23:25 03:49 03:49 WBC 22.1 H RBC 2.69 L Hgb 7.2 L Hct 22.7 L MCH 27 L RDW Plt Count Lymph % (Auto) [place] % (Auto) Lymph # (Auto) [place] # (Auto) Seg Neutrophils % Seg Neuts % (Manual) Lymphocytes % (Manual) Nucleated RBC % Seg Neutrophils # Seg Neutrophils # Man Monocytes # (Manual) PT INR APTT D-Dimer Heparin Anti-Xa Level ABG pH ABG pO2 ABG HCO3 ABG O2 Saturation ABG Base Excess ABG Hemoglobin Oxyhemoglobin Sodium Potassium Chloride Carbon Dioxide 32 H BUN 44 H Creatinine 1.3 H Glucose 173 H POC Glucose 146 H Hemoglobin A1c Lactic Acid Calcium Phosphorus Magnesium Ferritin AST ALT Alkaline Phosphatase Lactate Dehydrogenase Troponin T C-Reactive Protein Total Protein Albumin LDL Cholesterol Direct Urine Creatinine Urine Total Protein Salicylates Acetaminophen Crossmatch 11/11/21 11/11/21 11/11/21 05:03 10:50 11:32 WBC RBC Hgb Hct MCH RDW Plt Count Lymph % (Auto) [place] % (Auto) Lymph # (Auto) [place] # (Auto) Seg Neutrophils % Seg Neuts % (Manual) Lymphocytes % (Manual) Nucleated RBC % Seg Neutrophils # Seg Neutrophils # Man Monocytes # (Manual) PT INR APTT D-Dimer Heparin Anti-Xa Level ABG pH ABG pO2 ABG HCO3 ABG O2 Saturation ABG Base Excess ABG Hemoglobin Oxyhemoglobin Sodium Potassium Chloride Carbon Dioxide BUN Creatinine Glucose POC Glucose 152 H 129 H 133 H Hemoglobin A1c Lactic Acid Calcium Phosphorus Magnesium Ferritin AST ALT Alkaline Phosphatase Lactate Dehydrogenase Troponin T C-Reactive Protein Total Protein Albumin LDL Cholesterol Direct Urine Creatinine Urine Total Protein Salicylates Acetaminophen Crossmatch 11/11/21 11/11/21 11/11/21 13:53 16:31 17:13 WBC RBC Hgb Hct MCH RDW Plt Count Lymph % (Auto) [place] % (Auto) Lymph # (Auto) [place] # (Auto) Seg Neutrophils % Seg Neuts % (Manual) Lymphocytes % (Manual) Nucleated RBC % Seg Neutrophils # Seg Neutrophils # Man Monocytes # (Manual) PT INR APTT D-Dimer Heparin Anti-Xa Level ABG pH 7.475 H ABG pO2 64.1 L ABG HCO3 32.4 H ABG O2 Saturation ABG Base Excess 8.0 H ABG Hemoglobin 7.6 L Oxyhemoglobin 94.0 L Sodium Potassium Chloride Carbon Dioxide BUN Creatinine Glucose POC Glucose 116 H 125 H Hemoglobin A1c Lactic Acid Calcium Phosphorus Magnesium Ferritin AST ALT Alkaline Phosphatase Lactate Dehydrogenase Troponin T C-Reactive Protein Total Protein Albumin LDL Cholesterol Direct Urine Creatinine Urine Total Protein Salicylates Acetaminophen Crossmatch 11/11/21 11/11/21 11/12/21 20:40 23:35 03:30 WBC 17.7 H RBC 2.37 L Hgb 6.3 L Hct 20.0 L MCH 27 L RDW 15.5 H Plt Count Lymph % (Auto) [place] % (Auto) Lymph # (Auto) [place] # (Auto) Seg Neutrophils % Seg Neuts % (Manual) Lymphocytes % (Manual) Nucleated RBC % Seg Neutrophils # Seg Neutrophils # Man Monocytes # (Manual) PT INR APTT D-Dimer Heparin Anti-Xa Level 0.26 L ABG pH ABG pO2 ABG HCO3 ABG O2 Saturation ABG Base Excess ABG Hemoglobin Oxyhemoglobin Sodium Potassium Chloride Carbon Dioxide BUN Creatinine Glucose POC Glucose 118 H Hemoglobin A1c Lactic Acid Calcium Phosphorus Magnesium Ferritin AST ALT Alkaline Phosphatase Lactate Dehydrogenase Troponin T C-Reactive Protein Total Protein Albumin LDL Cholesterol Direct Urine Creatinine Urine Total Protein Salicylates Acetaminophen Crossmatch 11/12/21 11/12/21 11/12/21 03:30 04:15 11:53 WBC RBC Hgb Hct MCH RDW Plt Count Lymph % (Auto) [place] % (Auto) Lymph # (Auto) [place] # (Auto) Seg Neutrophils % Seg Neuts % (Manual) Lymphocytes % (Manual) Nucleated RBC % Seg Neutrophils # Seg Neutrophils # Man Monocytes # (Manual) PT INR APTT D-Dimer Heparin Anti-Xa Level ABG pH ABG pO2 ABG HCO3 ABG O2 Saturation ABG Base Excess ABG Hemoglobin Oxyhemoglobin Sodium Potassium Chloride Carbon Dioxide 33 H BUN 38 H Creatinine 1.3 H Glucose 102 H POC Glucose 62 L Hemoglobin A1c Lactic Acid Calcium 8.2 L Phosphorus Magnesium Ferritin AST ALT Alkaline Phosphatase Lactate Dehydrogenase Troponin T C-Reactive Protein Total Protein Albumin LDL Cholesterol Direct Urine Creatinine Urine Total Protein Salicylates Acetaminophen Crossmatch See Detail 11/12/21 11/12/21 11/12/21 17:20 19:14 23:11 WBC RBC Hgb 6.2 L Hct 19.5 L* MCH RDW Plt Count Lymph % (Auto) [place] % (Auto) Lymph # (Auto) [place] # (Auto) Seg Neutrophils % Seg Neuts % (Manual) Lymphocytes % (Manual) Nucleated RBC % Seg Neutrophils # Seg Neutrophils # Man Monocytes # (Manual) PT INR APTT D-Dimer Heparin Anti-Xa Level ABG pH ABG pO2 ABG HCO3 ABG O2 Saturation ABG Base Excess ABG Hemoglobin Oxyhemoglobin Sodium Potassium Chloride Carbon Dioxide BUN Creatinine Glucose POC Glucose 115 H 131 H Hemoglobin A1c Lactic Acid Calcium Phosphorus Magnesium Ferritin AST ALT Alkaline Phosphatase Lactate Dehydrogenase Troponin T C-Reactive Protein Total Protein Albumin LDL Cholesterol Direct Urine Creatinine Urine Total Protein Salicylates Acetaminophen Crossmatch 11/13/21 11/13/21 11/13/21 00:13 04:17 04:17 WBC 23.8 H RBC 2.84 L Hgb 7.4 L 7.8 L Hct 23.3 L 24.9 L MCH 27 L RDW 15.4 H Plt Count Lymph % (Auto) [place] % (Auto) Lymph # (Auto) [place] # (Auto) Seg Neutrophils % Seg Neuts % (Manual) Lymphocytes % (Manual) Nucleated RBC % Seg Neutrophils # Seg Neutrophils # Man Monocytes # (Manual) PT INR APTT D-Dimer Heparin Anti-Xa Level ABG pH ABG pO2 ABG HCO3 ABG O2 Saturation ABG Base Excess ABG Hemoglobin Oxyhemoglobin Sodium 146 H Potassium Chloride Carbon Dioxide BUN 44 H Creatinine 1.6 H Glucose 144 H POC Glucose Hemoglobin A1c Lactic Acid Calcium 7.9 L Phosphorus 5.10 H D Magnesium Ferritin AST ALT Alkaline Phosphatase Lactate Dehydrogenase Troponin T C-Reactive Protein Total Protein Albumin LDL Cholesterol Direct Urine Creatinine Urine Total Protein Salicylates Acetaminophen Crossmatch 11/13/21 11/13/21 11/13/21 05:52 10:54 15:57 WBC RBC Hgb Hct MCH RDW Plt Count Lymph % (Auto) [place] % (Auto) Lymph # (Auto) [place] # (Auto) Seg Neutrophils % Seg Neuts % (Manual) Lymphocytes % (Manual) Nucleated RBC % Seg Neutrophils # Seg Neutrophils # Man Monocytes # (Manual) PT INR APTT D-Dimer Heparin Anti-Xa Level ABG pH ABG pO2 ABG HCO3 ABG O2 Saturation ABG Base Excess ABG Hemoglobin Oxyhemoglobin Sodium Potassium Chloride Carbon Dioxide BUN Creatinine Glucose POC Glucose 123 H 147 H 207 H Hemoglobin A1c Lactic Acid Calcium Phosphorus Magnesium Ferritin AST ALT Alkaline Phosphatase Lactate Dehydrogenase Troponin T C-Reactive Protein Total Protein Albumin LDL Cholesterol Direct Urine Creatinine Urine Total Protein Salicylates Acetaminophen Crossmatch 11/13/21 11/13/21 11/14/21 16:01 23:18 04:55 WBC 23.9 H RBC 2.86 L Hgb 6.5 L 8.3 L Hct 20.3 L 24.5 L MCH RDW Plt Count Lymph % (Auto) [place] % (Auto) Lymph # (Auto) [place] # (Auto) Seg Neutrophils % Seg Neuts % (Manual) Lymphocytes % (Manual) Nucleated RBC % Seg Neutrophils # Seg Neutrophils # Man Monocytes # (Manual) PT INR APTT D-Dimer Heparin Anti-Xa Level ABG pH ABG pO2 ABG HCO3 ABG O2 Saturation ABG Base Excess ABG Hemoglobin Oxyhemoglobin Sodium Potassium Chloride Carbon Dioxide BUN Creatinine Glucose POC Glucose 209 H Hemoglobin A1c Lactic Acid Calcium Phosphorus Magnesium Ferritin AST ALT Alkaline Phosphatase Lactate Dehydrogenase Troponin T C-Reactive Protein Total Protein Albumin LDL Cholesterol Direct Urine Creatinine Urine Total Protein Salicylates Acetaminophen Crossmatch 11/14/21 11/14/21 11/14/21 04:55 05:09 11:35 WBC RBC Hgb Hct MCH RDW Plt Count Lymph % (Auto) [place] % (Auto) Lymph # (Auto) [place] # (Auto) Seg Neutrophils % Seg Neuts % (Manual) Lymphocytes % (Manual) Nucleated RBC % Seg Neutrophils # Seg Neutrophils # Man Monocytes # (Manual) PT INR APTT D-Dimer Heparin Anti-Xa Level ABG pH ABG pO2 ABG HCO3 ABG O2 Saturation ABG Base Excess ABG Hemoglobin Oxyhemoglobin Sodium 148 H Potassium Chloride 109.0 H Carbon Dioxide BUN 42 H Creatinine 1.6 H Glucose 184 H POC Glucose 169 H 154 H Hemoglobin A1c Lactic Acid Calcium 8.0 L Phosphorus Magnesium Ferritin AST ALT Alkaline Phosphatase Lactate Dehydrogenase Troponin T C-Reactive Protein Total Protein Albumin LDL Cholesterol Direct Urine Creatinine Urine Total Protein Salicylates Acetaminophen Crossmatch 11/14/21 11/14/21 11/15/21 16:57 23:11 04:36 WBC RBC Hgb Hct MCH RDW Plt Count Lymph % (Auto) [place] % (Auto) Lymph # (Auto) [place] # (Auto) Seg Neutrophils % Seg Neuts % (Manual) Lymphocytes % (Manual) Nucleated RBC % Seg Neutrophils # Seg Neutrophils # Man Monocytes # (Manual) PT INR APTT D-Dimer Heparin Anti-Xa Level ABG pH ABG pO2 ABG HCO3 ABG O2 Saturation ABG Base Excess ABG Hemoglobin Oxyhemoglobin Sodium 151 H Potassium Chloride 111.2 H Carbon Dioxide BUN 36 H Creatinine 1.3 H Glucose 136 H POC Glucose 124 H 118 H Hemoglobin A1c Lactic Acid Calcium 8.1 L Phosphorus Magnesium Ferritin AST ALT Alkaline Phosphatase Lactate Dehydrogenase Troponin T C-Reactive Protein Total Protein Albumin LDL Cholesterol Direct Urine Creatinine Urine Total Protein Salicylates Acetaminophen Crossmatch 11/15/21 11/15/21 11/16/21 11:18 21:49 00:15 WBC RBC Hgb Hct MCH RDW Plt Count Lymph % (Auto) [place] % (Auto) Lymph # (Auto) [place] # (Auto) Seg Neutrophils % Seg Neuts % (Manual) Lymphocytes % (Manual) Nucleated RBC % Seg Neutrophils # Seg Neutrophils # Man Monocytes # (Manual) PT INR APTT D-Dimer Heparin Anti-Xa Level ABG pH ABG pO2 ABG HCO3 ABG O2 Saturation ABG Base Excess ABG Hemoglobin Oxyhemoglobin Sodium Potassium Chloride Carbon Dioxide BUN Creatinine Glucose POC Glucose 154 H 154 H 146 H Hemoglobin A1c Lactic Acid Calcium Phosphorus Magnesium Ferritin AST ALT Alkaline Phosphatase Lactate Dehydrogenase Troponin T C-Reactive Protein Total Protein Albumin LDL Cholesterol Direct Urine Creatinine Urine Total Protein Salicylates Acetaminophen Crossmatch 02/23/22 02/23/22 02/23/22 05:11 05:11 05:37 WBC 18.2 H RBC 2.92 L Hgb 8.3 L Hct 26.1 L MCH RDW 15.8 H Plt Count Lymph % (Auto) 6.3 L [place] % (Auto) 10.2 H Lymph # (Auto) [place] # (Auto) 1.9 H Seg Neutrophils % 81.7 H Seg Neuts % (Manual) Lymphocytes % (Manual) Nucleated RBC % Seg Neutrophils # 14.9 H Seg Neutrophils # Man Monocytes # (Manual) PT INR APTT D-Dimer Heparin Anti-Xa Level ABG pH ABG pO2 ABG HCO3 ABG O2 Saturation ABG Base Excess ABG Hemoglobin Oxyhemoglobin Sodium 146 H Potassium Chloride 108.0 H Carbon Dioxide BUN 25 H Creatinine Glucose 123 H POC Glucose 109 H Hemoglobin A1c Lactic Acid Calcium 7.8 L Phosphorus Magnesium Ferritin AST ALT Alkaline Phosphatase Lactate Dehydrogenase Troponin T C-Reactive Protein Total Protein Albumin LDL Cholesterol Direct Urine Creatinine Urine Total Protein Salicylates Acetaminophen Crossmatch 11/16/21 11/16/21 11/17/21 11:22 23:55 04:33 WBC RBC Hgb Hct MCH RDW Plt Count Lymph % (Auto) [place] % (Auto) Lymph # (Auto) [place] # (Auto) Seg Neutrophils % Seg Neuts % (Manual) Lymphocytes % (Manual) Nucleated RBC % Seg Neutrophils # Seg Neutrophils # Man Monocytes # (Manual) PT INR APTT D-Dimer Heparin Anti-Xa Level ABG pH ABG pO2 ABG HCO3 ABG O2 Saturation ABG Base Excess ABG Hemoglobin Oxyhemoglobin Sodium Potassium Chloride Carbon Dioxide BUN 20 H Creatinine Glucose POC Glucose 136 H 113 H Hemoglobin A1c Lactic Acid Calcium 7.5 L Phosphorus Magnesium Ferritin AST ALT Alkaline Phosphatase Lactate Dehydrogenase Troponin T C-Reactive Protein Total Protein Albumin LDL Cholesterol Direct Urine Creatinine Urine Total Protein Salicylates Acetaminophen Crossmatch 11/17/21 11/18/21 11/18/21 23:22 04:53 04:53 WBC 13.0 H RBC 2.99 L Hgb 8.5 L Hct 26.4 L MCH RDW Plt Count Lymph % (Auto) 9.5 L [place] % (Auto) 9.8 H Lymph # (Auto) [place] # (Auto) 1.3 H Seg Neutrophils % 78.3 H Seg Neuts % (Manual) Lymphocytes % (Manual) Nucleated RBC % Seg Neutrophils # 10.2 H Seg Neutrophils # Man Monocytes # (Manual) PT INR APTT D-Dimer Heparin Anti-Xa Level ABG pH ABG pO2 ABG HCO3 ABG O2 Saturation ABG Base Excess ABG Hemoglobin Oxyhemoglobin Sodium Potassium Chloride Carbon Dioxide BUN 18 H Creatinine Glucose 106 H POC Glucose 112 H Hemoglobin A1c Lactic Acid Calcium 8.1 L Phosphorus Magnesium Ferritin AST ALT Alkaline Phosphatase Lactate Dehydrogenase Troponin T C-Reactive Protein Total Protein Albumin LDL Cholesterol Direct Urine Creatinine Urine Total Protein Salicylates Acetaminophen Crossmatch 11/18/21 11/18/21 11/19/21 11:35 17:42 14:38 WBC RBC Hgb Hct MCH RDW Plt Count Lymph % (Auto) [place] % (Auto) Lymph # (Auto) [place] # (Auto) Seg Neutrophils % Seg Neuts % (Manual) Lymphocytes % (Manual) Nucleated RBC % Seg Neutrophils # Seg Neutrophils # Man Monocytes # (Manual) PT INR APTT D-Dimer Heparin Anti-Xa Level ABG pH ABG pO2 ABG HCO3 ABG O2 Saturation ABG Base Excess ABG Hemoglobin Oxyhemoglobin Sodium Potassium Chloride 97.5 L Carbon Dioxide 31 H BUN Creatinine Glucose 146 H POC Glucose 143 H 132 H Hemoglobin A1c Lactic Acid Calcium Phosphorus Magnesium 1.60 L Ferritin AST ALT Alkaline Phosphatase Lactate Dehydrogenase Troponin T C-Reactive Protein Total Protein Albumin LDL Cholesterol Direct Urine Creatinine Urine Total Protein Salicylates Acetaminophen Crossmatch 11/19/21 11/19/21 11/20/21 16:24 23:58 07:42 WBC RBC 3.01 L Hgb 8.6 L Hct 26.7 L MCH RDW 15.4 H Plt Count Lymph % (Auto) [place] % (Auto) Lymph # (Auto) [place] # (Auto) Seg Neutrophils % Seg Neuts % (Manual) Lymphocytes % (Manual) Nucleated RBC % Seg Neutrophils # Seg Neutrophils # Man Monocytes # (Manual) PT INR APTT D-Dimer Heparin Anti-Xa Level ABG pH ABG pO2 ABG HCO3 ABG O2 Saturation ABG Base Excess ABG Hemoglobin Oxyhemoglobin Sodium Potassium Chloride Carbon Dioxide BUN Creatinine Glucose POC Glucose 129 H 125 H Hemoglobin A1c Lactic Acid Calcium Phosphorus Magnesium Ferritin AST ALT Alkaline Phosphatase Lactate Dehydrogenase Troponin T C-Reactive Protein Total Protein Albumin LDL Cholesterol Direct Urine Creatinine Urine Total Protein Salicylates Acetaminophen Crossmatch 11/20/21 11/20/21 11/20/21 07:42 11:25 22:59 WBC RBC Hgb Hct MCH RDW Plt Count Lymph % (Auto) [place] % (Auto) Lymph # (Auto) [place] # (Auto) Seg Neutrophils % Seg Neuts % (Manual) Lymphocytes % (Manual) Nucleated RBC % Seg Neutrophils # Seg Neutrophils # Man Monocytes # (Manual) PT INR APTT D-Dimer Heparin Anti-Xa Level ABG pH ABG pO2 ABG HCO3 ABG O2 Saturation ABG Base Excess ABG Hemoglobin Oxyhemoglobin Sodium Potassium Chloride Carbon Dioxide 31 H BUN Creatinine Glucose POC Glucose 116 H 113 H Hemoglobin A1c Lactic Acid Calcium Phosphorus Magnesium Ferritin AST ALT Alkaline Phosphatase Lactate Dehydrogenase Troponin T C-Reactive Protein Total Protein Albumin LDL Cholesterol Direct Urine Creatinine Urine Total Protein Salicylates Acetaminophen Crossmatch 11/21/21 11/22/21 11/22/21 10:50 05:10 16:12 WBC RBC Hgb Hct MCH RDW Plt Count Lymph % (Auto) [place] % (Auto) Lymph # (Auto) [place] # (Auto) Seg Neutrophils % Seg Neuts % (Manual) Lymphocytes % (Manual) Nucleated RBC % Seg Neutrophils # Seg Neutrophils # Man Monocytes # (Manual) PT INR APTT D-Dimer Heparin Anti-Xa Level ABG pH ABG pO2 ABG HCO3 ABG O2 Saturation ABG Base Excess ABG Hemoglobin Oxyhemoglobin Sodium Potassium Chloride Carbon Dioxide 32 H BUN Creatinine Glucose POC Glucose 156 H 110 H Hemoglobin A1c Lactic Acid Calcium 8.1 L Phosphorus Magnesium Ferritin AST ALT Alkaline Phosphatase Lactate Dehydrogenase Troponin T C-Reactive Protein Total Protein Albumin LDL Cholesterol Direct Urine Creatinine Urine Total Protein Salicylates Acetaminophen Crossmatch 11/23/21 11/23/21 11/23/21 07:18 07:18 11:45 WBC RBC 3.23 L Hgb 9.1 L Hct 28.5 L MCH RDW 15.6 H Plt Count Lymph % (Auto) [place] % (Auto) Lymph # (Auto) [place] # (Auto) Seg Neutrophils % Seg Neuts % (Manual) Lymphocytes % (Manual) Nucleated RBC % Seg Neutrophils # Seg Neutrophils # Man Monocytes # (Manual) PT INR APTT D-Dimer Heparin Anti-Xa Level ABG pH ABG pO2 ABG HCO3 ABG O2 Saturation ABG Base Excess ABG Hemoglobin Oxyhemoglobin Sodium Potassium 3.3 L Chloride 96.8 L Carbon Dioxide 32 H BUN Creatinine Glucose POC Glucose 140 H Hemoglobin A1c Lactic Acid Calcium Phosphorus Magnesium Ferritin AST ALT Alkaline Phosphatase Lactate Dehydrogenase Troponin T C-Reactive Protein Total Protein Albumin LDL Cholesterol Direct Urine Creatinine Urine Total Protein Salicylates Acetaminophen Crossmatch 11/23/21 11/23/21 11/24/21 16:40 23:45 07:19 WBC RBC 3.12 L Hgb 9.3 L Hct 27.2 L MCH RDW 16.0 H Plt Count Lymph % (Auto) 10.3 L [place] % (Auto) 10.0 H Lymph # (Auto) 1.1 L [place] # (Auto) 1.1 H Seg Neutrophils % 75.2 H Seg Neuts % (Manual) Lymphocytes % (Manual) Nucleated RBC % Seg Neutrophils # 7.9 H Seg Neutrophils # Man Monocytes # (Manual) PT INR APTT D-Dimer Heparin Anti-Xa Level ABG pH ABG pO2 ABG HCO3 ABG O2 Saturation ABG Base Excess ABG Hemoglobin Oxyhemoglobin Sodium Potassium Chloride Carbon Dioxide BUN Creatinine Glucose POC Glucose 140 H 138 H Hemoglobin A1c Lactic Acid Calcium Phosphorus Magnesium Ferritin AST ALT Alkaline Phosphatase Lactate Dehydrogenase Troponin T C-Reactive Protein Total Protein Albumin LDL Cholesterol Direct Urine Creatinine Urine Total Protein Salicylates Acetaminophen Crossmatch 11/24/21 11/24/21 11/24/21 07:19 11:49 15:54 WBC RBC Hgb Hct MCH RDW Plt Count Lymph % (Auto) [place] % (Auto) Lymph # (Auto) [place] # (Auto) Seg Neutrophils % Seg Neuts % (Manual) Lymphocytes % (Manual) Nucleated RBC % Seg Neutrophils # Seg Neutrophils # Man Monocytes # (Manual) PT INR APTT D-Dimer Heparin Anti-Xa Level ABG pH ABG pO2 ABG HCO3 ABG O2 Saturation ABG Base Excess ABG Hemoglobin Oxyhemoglobin Sodium Potassium 3.2 L Chloride 96.7 L Carbon Dioxide BUN Creatinine Glucose 125 H POC Glucose 118 H 106 H Hemoglobin A1c Lactic Acid Calcium Phosphorus Magnesium Ferritin AST ALT Alkaline Phosphatase Lactate Dehydrogenase Troponin T C-Reactive Protein Total Protein Albumin LDL Cholesterol Direct Urine Creatinine Urine Total Protein Salicylates Acetaminophen Crossmatch 11/25/21 11/25/21 11/25/21 11:49 15:41 20:51 WBC RBC Hgb Hct MCH RDW Plt Count Lymph % (Auto) [place] % (Auto) Lymph # (Auto) [place] # (Auto) Seg Neutrophils % Seg Neuts % (Manual) Lymphocytes % (Manual) Nucleated RBC % Seg Neutrophils # Seg Neutrophils # Man Monocytes # (Manual) PT INR APTT D-Dimer Heparin Anti-Xa Level ABG pH ABG pO2 ABG HCO3 ABG O2 Saturation ABG Base Excess ABG Hemoglobin Oxyhemoglobin Sodium Potassium Chloride Carbon Dioxide BUN Creatinine Glucose POC Glucose 119 H 110 H 109 H Hemoglobin A1c Lactic Acid Calcium Phosphorus Magnesium Ferritin AST ALT Alkaline Phosphatase Lactate Dehydrogenase Troponin T C-Reactive Protein Total Protein Albumin LDL Cholesterol Direct Urine Creatinine Urine Total Protein Salicylates Acetaminophen Crossmatch 11/26/21 11/26/21 11/26/21 07:33 11:20 17:03 WBC RBC Hgb Hct MCH RDW Plt Count Lymph % (Auto) [place] % (Auto) Lymph # (Auto) [place] # (Auto) Seg Neutrophils % Seg Neuts % (Manual) Lymphocytes % (Manual) Nucleated RBC % Seg Neutrophils # Seg Neutrophils # Man Monocytes # (Manual) PT INR APTT D-Dimer Heparin Anti-Xa Level ABG pH ABG pO2 ABG HCO3 ABG O2 Saturation ABG Base Excess ABG Hemoglobin Oxyhemoglobin Sodium Potassium Chloride Carbon Dioxide BUN Creatinine Glucose POC Glucose 158 H 162 H 144 H Hemoglobin A1c Lactic Acid Calcium Phosphorus Magnesium Ferritin AST ALT Alkaline Phosphatase Lactate Dehydrogenase Troponin T C-Reactive Protein Total Protein Albumin LDL Cholesterol Direct Urine Creatinine Urine Total Protein Salicylates Acetaminophen Crossmatch 11/26/21 11/27/21 11/27/21 21:51 07:44 12:20 WBC RBC Hgb Hct MCH RDW Plt Count Lymph % (Auto) [place] % (Auto) Lymph # (Auto) [place] # (Auto) Seg Neutrophils % Seg Neuts % (Manual) Lymphocytes % (Manual) Nucleated RBC % Seg Neutrophils # Seg Neutrophils # Man Monocytes # (Manual) PT INR APTT D-Dimer Heparin Anti-Xa Level ABG pH ABG pO2 ABG HCO3 ABG O2 Saturation ABG Base Excess ABG Hemoglobin Oxyhemoglobin Sodium Potassium Chloride Carbon Dioxide BUN Creatinine Glucose POC Glucose 132 H 129 H 128 H Hemoglobin A1c Lactic Acid Calcium Phosphorus Magnesium Ferritin AST ALT Alkaline Phosphatase Lactate Dehydrogenase Troponin T C-Reactive Protein Total Protein Albumin LDL Cholesterol Direct Urine Creatinine Urine Total Protein Salicylates Acetaminophen Crossmatch 11/27/21 11/27/21 11/28/21 16:44 21:35 07:54 WBC RBC Hgb Hct MCH RDW Plt Count Lymph % (Auto) [place] % (Auto) Lymph # (Auto) [place] # (Auto) Seg Neutrophils % Seg Neuts % (Manual) Lymphocytes % (Manual) Nucleated RBC % Seg Neutrophils # Seg Neutrophils # Man Monocytes # (Manual) PT INR APTT D-Dimer Heparin Anti-Xa Level ABG pH ABG pO2 ABG HCO3 ABG O2 Saturation ABG Base Excess ABG Hemoglobin Oxyhemoglobin Sodium Potassium Chloride Carbon Dioxide BUN Creatinine Glucose POC Glucose 126 H 131 H 124 H Hemoglobin A1c Lactic Acid Calcium Phosphorus Magnesium Ferritin AST ALT Alkaline Phosphatase Lactate Dehydrogenase Troponin T C-Reactive Protein Total Protein Albumin LDL Cholesterol Direct Urine Creatinine Urine Total Protein Salicylates Acetaminophen Crossmatch 11/28/21 11/28/21 11/28/21 11:27 11:56 16:34 WBC 12.3 H RBC 3.18 L Hgb 9.2 L Hct 27.8 L MCH RDW 16.1 H Plt Count Lymph % (Auto) 10.9 L [place] % (Auto) 13.7 H Lymph # (Auto) [place] # (Auto) 1.7 H Seg Neutrophils % 72.2 H Seg Neuts % (Manual) Lymphocytes % (Manual) Nucleated RBC % Seg Neutrophils # 8.9 H Seg Neutrophils # Man Monocytes # (Manual) PT INR APTT D-Dimer Heparin Anti-Xa Level ABG pH ABG pO2 ABG HCO3 ABG O2 Saturation ABG Base Excess ABG Hemoglobin Oxyhemoglobin Sodium Potassium Chloride Carbon Dioxide BUN Creatinine Glucose POC Glucose 131 H 123 H Hemoglobin A1c Lactic Acid Calcium Phosphorus Magnesium Ferritin AST ALT Alkaline Phosphatase Lactate Dehydrogenase Troponin T C-Reactive Protein Total Protein Albumin LDL Cholesterol Direct Urine Creatinine Urine Total Protein Salicylates Acetaminophen Crossmatch 11/28/21 11/28/21 11/29/21 19:35 21:32 07:33 WBC RBC Hgb Hct MCH RDW Plt Count Lymph % (Auto) [place] % (Auto) Lymph # (Auto) [place] # (Auto) Seg Neutrophils % Seg Neuts % (Manual) Lymphocytes % (Manual) Nucleated RBC % Seg Neutrophils # Seg Neutrophils # Man Monocytes # (Manual) PT INR APTT D-Dimer Heparin Anti-Xa Level 0.12 L ABG pH ABG pO2 ABG HCO3 ABG O2 Saturation ABG Base Excess ABG Hemoglobin Oxyhemoglobin Sodium Potassium Chloride Carbon Dioxide BUN Creatinine Glucose POC Glucose 110 H 108 H Hemoglobin A1c Lactic Acid Calcium Phosphorus Magnesium Ferritin AST ALT Alkaline Phosphatase Lactate Dehydrogenase Troponin T C-Reactive Protein Total Protein Albumin LDL Cholesterol Direct Urine Creatinine Urine Total Protein Salicylates Acetaminophen Crossmatch 11/29/21 11:29 WBC RBC Hgb Hct MCH RDW Plt Count Lymph % (Auto) [place] % (Auto) Lymph # (Auto) [place] # (Auto) Seg Neutrophils % Seg Neuts % (Manual) Lymphocytes % (Manual) Nucleated RBC % Seg Neutrophils # Seg Neutrophils # Man Monocytes # (Manual) PT INR APTT D-Dimer Heparin Anti-Xa Level ABG pH ABG pO2 ABG HCO3 ABG O2 Saturation ABG Base Excess ABG Hemoglobin Oxyhemoglobin Sodium Potassium Chloride Carbon Dioxide BUN Creatinine Glucose POC Glucose 136 H Hemoglobin A1c Lactic Acid Calcium Phosphorus Magnesium Ferritin AST ALT Alkaline Phosphatase Lactate Dehydrogenase Troponin T C-Reactive Protein Total Protein Albumin LDL Cholesterol Direct Urine Creatinine Urine Total Protein Salicylates Acetaminophen Crossmatch Allied health notes reviewed: nursing
[2021-11-29 14:05] LABS: Basophils # (Auto) 0.1 K/mm3 (0.0-0.1); Basophils % (Auto) 0.6 % (0.0-1.8); Eosinophils # (Auto) 0.1 K/mm3 (0.0-0.4); Hematocrit 29.9 % (30.3-42.9); Hemoglobin 9.5 gm/dl (10.1-14.3); Lymphocytes # (Auto) 1.4 K/mm3 (1.2-5.4); Lymphocytes % (Auto) 11.1 % (13.4-35.0); Mean Corpuscular HGB Conc 32 % (30-34); Mean Corpuscular Volume 88 fl (79-97); Monocytes % (Auto) 15.5 % (0.0-7.3); Platelet Count 227 K/mm3 (140-440); Red Blood Count 3.41 M/mm3 (3.65-5.03); Red Cell Distribution Width 16.2 % (13.2-15.2)
[2021-11-29] MEDS ORDERED: KETOROLAC 30 MG/1 ML INJ IV PRN (14:57)
[2021-11-29 19:28] LABS: Calcium 8.6 mg/dL (8.4-10.2)
[2021-11-30] MEDS ORDERED: SODIUM CHLORIDE 0.9% 1000 ML 1,000 ML IV ONE (00:43)
[2021-11-30] MEDS: GABAPENTIN 100 MG CAP PO SCH ×3 (05:34→21:45)
[2021-11-30 05:44] LABS: Hematocrit 26.8 % (30.3-42.9); Hemoglobin 8.7 gm/dl (10.1-14.3)
[2021-11-30] MEDS: HEPARIN/ 0.45% NACL DRIP 25,000 UNIT/500 ML BAG IV SCH (05:53)
[2021-11-30] MEDS ORDERED: SODIUM CHLORIDE 0.9% 500 ML 500 ML IV ONE (06:00)
[2021-11-30] MEDS: INSULIN LISPRO 100 UNIT/ML SUB-Q SCH ×4 (09:36→21:55)
[2021-11-30] MEDS: SENNOSIDES/DOCUSATE SODIUM 8.6/50 MG TAB PO SCH ×2 (09:53→21:45)
[2021-11-30] MEDS: FAMOTIDINE 10 MG TAB PO SCH ×2 (09:53→21:45)
[2021-11-30] MEDS: DOCUSATE SODIUM 100 MG CAP PO SCH ×2 (09:53→21:45)
[2021-11-30] MEDS: METOPROLOL TARTRATE 100 MG TAB PO SCH ×2 (09:53→21:54)
[2021-11-30] MEDS: LOSARTAN 25 MG TAB PO SCH (09:54)
[2021-11-30] MEDS: FUROSEMIDE 20 MG/2 ML INJ IV SCH (10:05)
[2021-11-30] MEDS: SPIRONOLACTONE 25 MG TAB PO SCH (10:05)
--- NOTE | 2021-11-30 12:03 | Progress Note ---
Assessment and Plan Acute hypoxemic respiratory failure on MVS Cardiac arrest with ROSC Acute DVT Right pneumothorax Shock (septic +/- cardiogenic) Possible aspiration pneumonia SIERRA Altered mental status/acute encephalopathy Elevated serum transaminases, likely shock liver Metabolic acidosis Obesity Retro-peritoneal Hematoma Leukocytosis Hypokalemia Lactic acidosis - continue anticoagulation while trending H&H - continue BIPAP scheduled qhs with prn daytime use - continue care as below otherwise; - continue to wean supplemental oxygen for target O2 sat's > 90% acutely - aspiration precautions - continue bronchodilators with pulmonary hygiene per RT - continue accuchecks with glycemic control per SSI for target blood glucose < 180 mg/dL - avoid nephrotoxins, renally dose all medications - continue to avoid benzodiazepine's, reduce the possibility of delirium - AB's per ID rec's - prn analgesia per pain score - Maintenance of sleep-wake cycle, avoid delirium - G.I. & VTE prophylaxis - PT/OT/ROM exercises - continue mobility protocols for pressure ulcer prophylaxis - Monitor hemodynamics closely - continue other care per attending / other consultants - discharge planning ongoing concurrently COVID SPECIFIC INTERVENTIONS - COVID-19 PCR negative .... Re-evaluate in am & prn Subjective Date of service: 11/30/21 Principal diagnosis: AHRF; Cardiac arrest; R. pneumothorax; pneumonia; AMS; DVT's; SIERRA; Obesity Interval history: Patient is seen today for: Acute hypoxemic respiratory failure; Cardiac arrest with ROSC; Right pneumothorax; pneumonia; AMS; bilateral DVT's; SIERRA; Obesity Seen and examined at bedside; 24hour events reviewed; nursing and respiratory care staff consulted; no adverse overnight events reported to me; resting in bed; remains on supplemental oxygen; still very weak; no emesis or overt aspiration; CXR without new infiltrate Objective Vital Signs - 12hr 11/30/21 11/30/21 11/30/21 03:23 04:37 07:36 Temperature 99.5 F 98.3 F Pulse Rate 100 H 101 H 101 H Respiratory 20 17 18 Rate Blood Pressure 98/54 117/54 Blood Pressure 127/83 [Left] O2 Sat by Pulse 100 98 94 Oximetry 11/30/21 11/30/21 11/30/21 09:53 10:00 11:16 Temperature 100.0 F H Pulse Rate 94 H Respiratory Rate Blood Pressure 117/54 89/58 Blood Pressure [Left] O2 Sat by Pulse 88 97 Oximetry Constitutional: no acute distress, alert, other (elderly obese female with mildly increased respiratory effort at rest ) Eyes: non-icteric ENT: oropharynx moist Neck: supple, no lymphadenopathy, no JVD, other (large circumference) Effort: mildly labored Ascultation: Bilateral: diminished breath sounds, rhonchi (bases) Percussion: Bilateral: not dull Cardiovascular: regular rate and rhythm, other (no R/M) Gastrointestinal: normoactive bowel sounds, soft, non-tender, other (obese) Integumentary: normal, other (Left flank ecchymosis with induration) Extremities: no cyanosis, pulses normal, no ischemia or petechiae, edema Neurologic: normal mental status, non-focal exam (grossly), pupils equal and round, motor strength normal and (weak) Psychiatric: mood appropriate, affect normal CBC and BMP: 12/01/21 09:38 12/01/21 09:38 ABG, PT/INR, D-dimer: ABG ABG pH 7.475 pH Units (7.350-7.450) H 11/11/21 13:53 ABG pCO2 45.0 mm Hg 11/11/21 13:53 ABG pO2 64.1 mm Hg (80.0-90.0) L 11/11/21 13:53 ABG O2 Saturation 96.3 % (95.0-99.0) 11/11/21 13:53 PT/INR, D-dimer PT 17.2 Sec. (12.2-14.9) H 10/30/21 16:30 INR 1.27 (0.87-1.13) H 10/30/21 16:30 D-Dimer > 87025 ng/mlDDU (0-234) H 10/30/21 Unknown Abnormal lab findings: Abnormal Labs 10/29/21 10/29/21 10/29/21 15:10 15:10 15:10 WBC 27.8 H RBC Hgb Hct MCH 27 L RDW Plt Count Lymph % (Auto) [place] % (Auto) Lymph # (Auto) [place] # (Auto) Seg Neutrophils % Seg Neuts % (Manual) 78.0 H Lymphocytes % (Manual) 10.0 L Nucleated RBC % Seg Neutrophils # Seg Neutrophils # Man 21.7 H Monocytes # (Manual) 1.4 H PT INR APTT D-Dimer Heparin Anti-Xa Level ABG pH ABG pO2 ABG HCO3 ABG O2 Saturation ABG Base Excess ABG Hemoglobin Oxyhemoglobin Sodium Potassium Chloride Carbon Dioxide BUN Creatinine Glucose POC Glucose Hemoglobin A1c Lactic Acid 6.80 H* Calcium Phosphorus Magnesium Ferritin AST ALT Alkaline Phosphatase Lactate Dehydrogenase Troponin T 0.089 H C-Reactive Protein Total Protein Albumin LDL Cholesterol Direct Urine Creatinine Urine Total Protein Salicylates Acetaminophen Crossmatch 10/29/21 10/29/21 10/29/21 15:10 15:10 15:10 WBC RBC Hgb Hct MCH RDW Plt Count Lymph % (Auto) [place] % (Auto) Lymph # (Auto) [place] # (Auto) Seg Neutrophils % Seg Neuts % (Manual) Lymphocytes % (Manual) Nucleated RBC % Seg Neutrophils # Seg Neutrophils # Man Monocytes # (Manual) PT INR APTT D-Dimer Heparin Anti-Xa Level ABG pH ABG pO2 ABG HCO3 ABG O2 Saturation ABG Base Excess ABG Hemoglobin Oxyhemoglobin Sodium 136 L Potassium 2.8 L* Chloride 93.4 L Carbon Dioxide 20 L BUN Creatinine Glucose 330 H POC Glucose Hemoglobin A1c Lactic Acid Calcium Phosphorus Magnesium Ferritin AST 1013 H ALT 1289 H Alkaline Phosphatase 246 H Lactate Dehydrogenase Troponin T C-Reactive Protein Total Protein Albumin LDL Cholesterol Direct Urine Creatinine Urine Total Protein Salicylates < 0.3 L Acetaminophen 5.0 L Crossmatch 10/29/21 10/29/21 10/29/21 15:11 16:01 19:29 WBC RBC Hgb Hct MCH RDW Plt Count Lymph % (Auto) [place] % (Auto) Lymph # (Auto) [place] # (Auto) Seg Neutrophils % Seg Neuts % (Manual) Lymphocytes % (Manual) Nucleated RBC % Seg Neutrophils # Seg Neutrophils # Man Monocytes # (Manual) PT INR APTT D-Dimer Heparin Anti-Xa Level ABG pH 7.307 L ABG pO2 64.1 L ABG HCO3 ABG O2 Saturation 90.8 L ABG Base Excess -2.9 L ABG Hemoglobin Oxyhemoglobin 89.3 L Sodium Potassium Chloride Carbon Dioxide BUN Creatinine Glucose POC Glucose Hemoglobin A1c Lactic Acid 2.60 H* Calcium Phosphorus Magnesium 2.90 H Ferritin AST ALT Alkaline Phosphatase Lactate Dehydrogenase Troponin T C-Reactive Protein Total Protein Albumin LDL Cholesterol Direct Urine Creatinine Urine Total Protein Salicylates Acetaminophen Crossmatch 02/05/22 02/05/22 02/06/22 19:40 22:34 04:30 WBC 16.2 H RBC Hgb Hct MCH 26 L RDW 15.5 H Plt Count Lymph % (Auto) 6.2 L [place] % (Auto) Lymph # (Auto) 1.0 L [place] # (Auto) 0.9 H Seg Neutrophils % 88.1 H Seg Neuts % (Manual) Lymphocytes % (Manual) Nucleated RBC % Seg Neutrophils # 14.2 H Seg Neutrophils # Man Monocytes # (Manual) PT INR APTT D-Dimer Heparin Anti-Xa Level ABG pH ABG pO2 ABG HCO3 ABG O2 Saturation ABG Base Excess ABG Hemoglobin Oxyhemoglobin Sodium Potassium Chloride Carbon Dioxide BUN Creatinine Glucose POC Glucose Hemoglobin A1c Lactic Acid Calcium Phosphorus Magnesium Ferritin AST ALT Alkaline Phosphatase Lactate Dehydrogenase Troponin T 1.950 H* D 1.150 H* D C-Reactive Protein Total Protein Albumin LDL Cholesterol Direct 43 L Urine Creatinine Urine Total Protein Salicylates Acetaminophen Crossmatch 10/30/21 10/30/21 10/30/21 04:30 04:35 05:45 WBC RBC Hgb Hct MCH RDW Plt Count Lymph % (Auto) [place] % (Auto) Lymph # (Auto) [place] # (Auto) Seg Neutrophils % Seg Neuts % (Manual) Lymphocytes % (Manual) Nucleated RBC % Seg Neutrophils # Seg Neutrophils # Man Monocytes # (Manual) PT INR APTT D-Dimer Heparin Anti-Xa Level ABG pH ABG pO2 69.5 L ABG HCO3 ABG O2 Saturation ABG Base Excess -2.7 L ABG Hemoglobin Oxyhemoglobin 94.7 L Sodium Potassium Chloride Carbon Dioxide 21 L BUN Creatinine Glucose 159 H POC Glucose 151 H Hemoglobin A1c Lactic Acid Calcium 7.9 L D Phosphorus Magnesium Ferritin AST 461 H ALT 686 H Alkaline Phosphatase 130 H Lactate Dehydrogenase Troponin T C-Reactive Protein Total Protein 5.6 L D Albumin 3.2 L LDL Cholesterol Direct Urine Creatinine Urine Total Protein Salicylates Acetaminophen Crossmatch 10/30/21 10/30/21 10/30/21 11:24 15:59 16:30 WBC RBC Hgb Hct MCH RDW Plt Count Lymph % (Auto) [place] % (Auto) Lymph # (Auto) [place] # (Auto) Seg Neutrophils % Seg Neuts % (Manual) Lymphocytes % (Manual) Nucleated RBC % Seg Neutrophils # Seg Neutrophils # Man Monocytes # (Manual) PT 17.2 H INR 1.27 H APTT 44.4 H D-Dimer Heparin Anti-Xa Level ABG pH ABG pO2 ABG HCO3 ABG O2 Saturation ABG Base Excess ABG Hemoglobin Oxyhemoglobin Sodium Potassium Chloride Carbon Dioxide BUN Creatinine Glucose POC Glucose 153 H 109 H Hemoglobin A1c Lactic Acid Calcium Phosphorus Magnesium Ferritin AST ALT Alkaline Phosphatase Lactate Dehydrogenase Troponin T C-Reactive Protein Total Protein Albumin LDL Cholesterol Direct Urine Creatinine Urine Total Protein Salicylates Acetaminophen Crossmatch 10/30/21 10/30/21 10/30/21 23:00 Unknown Unknown WBC RBC Hgb Hct MCH RDW Plt Count Lymph % (Auto) [place] % (Auto) Lymph # (Auto) [place] # (Auto) Seg Neutrophils % Seg Neuts % (Manual) Lymphocytes % (Manual) Nucleated RBC % Seg Neutrophils # Seg Neutrophils # Man Monocytes # (Manual) PT INR APTT D-Dimer > 06120 H Heparin Anti-Xa Level 0.82 H ABG pH ABG pO2 ABG HCO3 ABG O2 Saturation ABG Base Excess ABG Hemoglobin Oxyhemoglobin Sodium Potassium Chloride Carbon Dioxide BUN Creatinine Glucose POC Glucose Hemoglobin A1c Lactic Acid Calcium Phosphorus Magnesium Ferritin 208.4 H AST ALT Alkaline Phosphatase Lactate Dehydrogenase Troponin T C-Reactive Protein Total Protein Albumin LDL Cholesterol Direct Urine Creatinine Urine Total Protein Salicylates Acetaminophen Crossmatch 10/30/21 10/31/21 10/31/21 Unknown 04:30 04:30 WBC 14.4 H RBC Hgb Hct MCH 26 L RDW Plt Count Lymph % (Auto) [place] % (Auto) Lymph # (Auto) [place] # (Auto) Seg Neutrophils % Seg Neuts % (Manual) Lymphocytes % (Manual) Nucleated RBC % Seg Neutrophils # Seg Neutrophils # Man Monocytes # (Manual) PT INR APTT D-Dimer Heparin Anti-Xa Level ABG pH ABG pO2 ABG HCO3 ABG O2 Saturation ABG Base Excess ABG Hemoglobin Oxyhemoglobin Sodium Potassium 3.5 L Chloride 107.5 H Carbon Dioxide 20 L BUN 28 H Creatinine 1.7 H Glucose 113 H POC Glucose Hemoglobin A1c Lactic Acid Calcium 7.9 L Phosphorus Magnesium Ferritin AST ALT Alkaline Phosphatase Lactate Dehydrogenase 469 H Troponin T C-Reactive Protein 13.40 H Total Protein Albumin LDL Cholesterol Direct Urine Creatinine Urine Total Protein Salicylates Acetaminophen Crossmatch 10/31/21 10/31/21 10/31/21 04:30 05:11 15:30 WBC RBC Hgb Hct MCH RDW Plt Count Lymph % (Auto) [place] % (Auto) Lymph # (Auto) [place] # (Auto) Seg Neutrophils % Seg Neuts % (Manual) Lymphocytes % (Manual) Nucleated RBC % Seg Neutrophils # Seg Neutrophils # Man Monocytes # (Manual) PT INR APTT D-Dimer Heparin Anti-Xa Level ABG pH 7.222 L ABG pO2 61.5 L ABG HCO3 ABG O2 Saturation 86.2 L ABG Base Excess -6.3 L ABG Hemoglobin 11.2 L Oxyhemoglobin 84.5 L Sodium Potassium Chloride Carbon Dioxide BUN Creatinine Glucose POC Glucose 106 H Hemoglobin A1c 6.7 H Lactic Acid Calcium Phosphorus Magnesium Ferritin AST ALT Alkaline Phosphatase Lactate Dehydrogenase Troponin T C-Reactive Protein Total Protein Albumin LDL Cholesterol Direct Urine Creatinine Urine Total Protein Salicylates Acetaminophen Crossmatch 10/31/21 10/31/21 10/31/21 16:07 16:35 17:45 WBC RBC Hgb Hct MCH RDW Plt Count Lymph % (Auto) [place] % (Auto) Lymph # (Auto) [place] # (Auto) Seg Neutrophils % Seg Neuts % (Manual) Lymphocytes % (Manual) Nucleated RBC % Seg Neutrophils # Seg Neutrophils # Man Monocytes # (Manual) PT INR APTT D-Dimer Heparin Anti-Xa Level ABG pH 7.267 L ABG pO2 58.3 L ABG HCO3 ABG O2 Saturation 88.3 L ABG Base Excess -5.9 L ABG Hemoglobin 10.1 L Oxyhemoglobin 86.5 L Sodium Potassium Chloride Carbon Dioxide BUN Creatinine Glucose POC Glucose 115 H Hemoglobin A1c Lactic Acid Calcium Phosphorus Magnesium Ferritin AST ALT Alkaline Phosphatase Lactate Dehydrogenase Troponin T C-Reactive Protein Total Protein Albumin LDL Cholesterol Direct Urine Creatinine 383.6 H Urine Total Protein Salicylates Acetaminophen Crossmatch 11/01/21 11/01/21 11/01/21 00:06 05:08 06:00 WBC 12.6 H RBC 3.43 L Hgb 8.9 L Hct 28.7 L MCH 26 L RDW 15.7 H Plt Count 130 L Lymph % (Auto) [place] % (Auto) Lymph # (Auto) [place] # (Auto) Seg Neutrophils % Seg Neuts % (Manual) Lymphocytes % (Manual) Nucleated RBC % Seg Neutrophils # Seg Neutrophils # Man Monocytes # (Manual) PT INR APTT D-Dimer Heparin Anti-Xa Level ABG pH ABG pO2 ABG HCO3 ABG O2 Saturation ABG Base Excess ABG Hemoglobin Oxyhemoglobin Sodium Potassium Chloride Carbon Dioxide BUN Creatinine Glucose POC Glucose 114 H 120 H Hemoglobin A1c Lactic Acid Calcium Phosphorus Magnesium Ferritin AST ALT Alkaline Phosphatase Lactate Dehydrogenase Troponin T C-Reactive Protein Total Protein Albumin LDL Cholesterol Direct Urine Creatinine Urine Total Protein Salicylates Acetaminophen Crossmatch 11/01/21 11/01/21 11/01/21 06:00 11:43 14:00 WBC RBC Hgb Hct MCH RDW Plt Count Lymph % (Auto) [place] % (Auto) Lymph # (Auto) [place] # (Auto) Seg Neutrophils % Seg Neuts % (Manual) Lymphocytes % (Manual) Nucleated RBC % Seg Neutrophils # Seg Neutrophils # Man Monocytes # (Manual) PT INR APTT D-Dimer Heparin Anti-Xa Level ABG pH 7.349 L ABG pO2 75.6 L ABG HCO3 ABG O2 Saturation ABG Base Excess -3.9 L ABG Hemoglobin 9.8 L Oxyhemoglobin 93.5 L Sodium Potassium Chloride 114.1 H Carbon Dioxide 20 L BUN 33 H Creatinine Glucose 131 H POC Glucose 151 H Hemoglobin A1c Lactic Acid Calcium 7.7 L Phosphorus Magnesium Ferritin AST 79 H ALT 259 H Alkaline Phosphatase Lactate Dehydrogenase Troponin T C-Reactive Protein Total Protein 5.5 L Albumin 2.7 L LDL Cholesterol Direct Urine Creatinine Urine Total Protein Salicylates Acetaminophen Crossmatch 11/01/21 11/01/21 11/02/21 16:45 22:55 05:12 WBC RBC Hgb Hct MCH RDW Plt Count Lymph % (Auto) [place] % (Auto) Lymph # (Auto) [place] # (Auto) Seg Neutrophils % Seg Neuts % (Manual) Lymphocytes % (Manual) Nucleated RBC % Seg Neutrophils # Seg Neutrophils # Man Monocytes # (Manual) PT INR APTT D-Dimer Heparin Anti-Xa Level ABG pH ABG pO2 ABG HCO3 ABG O2 Saturation ABG Base Excess ABG Hemoglobin Oxyhemoglobin Sodium Potassium Chloride Carbon Dioxide BUN Creatinine Glucose POC Glucose 119 H 129 H 140 H Hemoglobin A1c Lactic Acid Calcium Phosphorus Magnesium Ferritin AST ALT Alkaline Phosphatase Lactate Dehydrogenase Troponin T C-Reactive Protein Total Protein Albumin LDL Cholesterol Direct Urine Creatinine Urine Total Protein Salicylates Acetaminophen Crossmatch 11/02/21 11/02/21 11/02/21 05:35 05:35 09:35 WBC 13.5 H RBC 3.60 L Hgb 9.7 L Hct MCH 27 L RDW 15.7 H Plt Count Lymph % (Auto) [place] % (Auto) Lymph # (Auto) [place] # (Auto) Seg Neutrophils % Seg Neuts % (Manual) Lymphocytes % (Manual) Nucleated RBC % Seg Neutrophils # Seg Neutrophils # Man Monocytes # (Manual) PT INR APTT D-Dimer Heparin Anti-Xa Level ABG pH 7.208 L ABG pO2 75.9 L ABG HCO3 ABG O2 Saturation 93.6 L ABG Base Excess -4.3 L ABG Hemoglobin 9.1 L Oxyhemoglobin 91.6 L Sodium Potassium 5.2 H D Chloride 112.6 H Carbon Dioxide BUN 32 H Creatinine Glucose 152 H POC Glucose Hemoglobin A1c Lactic Acid Calcium 8.2 L Phosphorus Magnesium 2.70 H Ferritin AST ALT Alkaline Phosphatase Lactate Dehydrogenase Troponin T C-Reactive Protein Total Protein Albumin LDL Cholesterol Direct Urine Creatinine Urine Total Protein Salicylates Acetaminophen Crossmatch 11/02/21 11/02/21 11/02/21 11:44 17:13 23:43 WBC RBC Hgb Hct MCH RDW Plt Count Lymph % (Auto) [place] % (Auto) Lymph # (Auto) [place] # (Auto) Seg Neutrophils % Seg Neuts % (Manual) Lymphocytes % (Manual) Nucleated RBC % Seg Neutrophils # Seg Neutrophils # Man Monocytes # (Manual) PT INR APTT D-Dimer Heparin Anti-Xa Level ABG pH ABG pO2 ABG HCO3 ABG O2 Saturation ABG Base Excess ABG Hemoglobin Oxyhemoglobin Sodium Potassium Chloride Carbon Dioxide BUN Creatinine Glucose POC Glucose 173 H 148 H 137 H Hemoglobin A1c Lactic Acid Calcium Phosphorus Magnesium Ferritin AST ALT Alkaline Phosphatase Lactate Dehydrogenase Troponin T C-Reactive Protein Total Protein Albumin LDL Cholesterol Direct Urine Creatinine Urine Total Protein Salicylates Acetaminophen Crossmatch 11/03/21 11/03/21 11/03/21 04:59 06:00 06:00 WBC RBC 3.43 L Hgb 9.1 L Hct 29.0 L MCH 26 L RDW 16.4 H Plt Count Lymph % (Auto) [place] % (Auto) Lymph # (Auto) [place] # (Auto) Seg Neutrophils % Seg Neuts % (Manual) Lymphocytes % (Manual) Nucleated RBC % Seg Neutrophils # Seg Neutrophils # Man Monocytes # (Manual) PT INR APTT D-Dimer Heparin Anti-Xa Level 0.17 L ABG pH ABG pO2 ABG HCO3 ABG O2 Saturation ABG Base Excess ABG Hemoglobin Oxyhemoglobin Sodium Potassium Chloride Carbon Dioxide BUN Creatinine Glucose POC Glucose 167 H Hemoglobin A1c Lactic Acid Calcium Phosphorus Magnesium Ferritin AST ALT Alkaline Phosphatase Lactate Dehydrogenase Troponin T C-Reactive Protein Total Protein Albumin LDL Cholesterol Direct Urine Creatinine Urine Total Protein Salicylates Acetaminophen Crossmatch 11/03/21 11/03/21 11/03/21 06:00 09:20 11:58 WBC RBC Hgb Hct MCH RDW Plt Count Lymph % (Auto) [place] % (Auto) Lymph # (Auto) [place] # (Auto) Seg Neutrophils % Seg Neuts % (Manual) Lymphocytes % (Manual) Nucleated RBC % Seg Neutrophils # Seg Neutrophils # Man Monocytes # (Manual) PT INR APTT D-Dimer Heparin Anti-Xa Level ABG pH 7.274 L ABG pO2 75.6 L ABG HCO3 ABG O2 Saturation 94.9 L ABG Base Excess -2.5 L ABG Hemoglobin 9.3 L Oxyhemoglobin 92.9 L Sodium 149 H Potassium Chloride 117.5 H Carbon Dioxide BUN 32 H Creatinine Glucose 173 H POC Glucose 192 H Hemoglobin A1c Lactic Acid Calcium 8.1 L Phosphorus Magnesium Ferritin AST ALT Alkaline Phosphatase Lactate Dehydrogenase Troponin T C-Reactive Protein Total Protein Albumin LDL Cholesterol Direct Urine Creatinine Urine Total Protein Salicylates Acetaminophen Crossmatch 11/03/21 11/03/21 11/04/21 18:22 Unknown 00:09 WBC RBC Hgb Hct MCH RDW Plt Count Lymph % (Auto) [place] % (Auto) Lymph # (Auto) [place] # (Auto) Seg Neutrophils % Seg Neuts % (Manual) Lymphocytes % (Manual) Nucleated RBC % Seg Neutrophils # Seg Neutrophils # Man Monocytes # (Manual) PT INR APTT D-Dimer Heparin Anti-Xa Level 0.29 L ABG pH ABG pO2 ABG HCO3 ABG O2 Saturation ABG Base Excess ABG Hemoglobin Oxyhemoglobin Sodium Potassium Chloride Carbon Dioxide BUN Creatinine Glucose POC Glucose 178 H 221 H Hemoglobin A1c Lactic Acid Calcium Phosphorus Magnesium Ferritin AST ALT Alkaline Phosphatase Lactate Dehydrogenase Troponin T C-Reactive Protein Total Protein Albumin LDL Cholesterol Direct Urine Creatinine Urine Total Protein Salicylates Acetaminophen Crossmatch 11/04/21 11/04/21 11/04/21 05:09 09:40 09:40 WBC 16.8 H RBC Hgb Hct MCH 27 L RDW 16.5 H Plt Count Lymph % (Auto) [place] % (Auto) Lymph # (Auto) [place] # (Auto) Seg Neutrophils % Seg Neuts % (Manual) Lymphocytes % (Manual) Nucleated RBC % Seg Neutrophils # Seg Neutrophils # Man Monocytes # (Manual) PT INR APTT D-Dimer Heparin Anti-Xa Level ABG pH ABG pO2 ABG HCO3 ABG O2 Saturation ABG Base Excess ABG Hemoglobin Oxyhemoglobin Sodium Potassium 5.9 H Chloride 108.5 H Carbon Dioxide BUN 54 H Creatinine 1.8 H Glucose 198 H POC Glucose 182 H Hemoglobin A1c Lactic Acid Calcium Phosphorus Magnesium 3.00 H Ferritin AST ALT Alkaline Phosphatase Lactate Dehydrogenase Troponin T C-Reactive Protein Total Protein Albumin LDL Cholesterol Direct Urine Creatinine Urine Total Protein Salicylates Acetaminophen Crossmatch 11/04/21 11/04/21 11/04/21 12:13 13:34 14:05 WBC RBC Hgb Hct MCH RDW Plt Count Lymph % (Auto) [place] % (Auto) Lymph # (Auto) [place] # (Auto) Seg Neutrophils % Seg Neuts % (Manual) Lymphocytes % (Manual) Nucleated RBC % Seg Neutrophils # Seg Neutrophils # Man Monocytes # (Manual) PT INR APTT D-Dimer Heparin Anti-Xa Level ABG pH 7.223 L ABG pO2 71.3 L ABG HCO3 ABG O2 Saturation 92.8 L ABG Base Excess ABG Hemoglobin 8.2 L Oxyhemoglobin 91.0 L Sodium Potassium Chloride Carbon Dioxide BUN Creatinine Glucose POC Glucose 184 H Hemoglobin A1c Lactic Acid Calcium Phosphorus Magnesium Ferritin AST ALT Alkaline Phosphatase Lactate Dehydrogenase Troponin T C-Reactive Protein Total Protein Albumin LDL Cholesterol Direct Urine Creatinine 184.6 H Urine Total Protein Salicylates Acetaminophen Crossmatch 11/04/21 11/04/21 11/05/21 18:02 Unknown 00:07 WBC RBC Hgb Hct MCH RDW Plt Count Lymph % (Auto) [place] % (Auto) Lymph # (Auto) [place] # (Auto) Seg Neutrophils % Seg Neuts % (Manual) Lymphocytes % (Manual) Nucleated RBC % Seg Neutrophils # Seg Neutrophils # Man Monocytes # (Manual) PT INR APTT D-Dimer Heparin Anti-Xa Level ABG pH ABG pO2 ABG HCO3 ABG O2 Saturation ABG Base Excess ABG Hemoglobin Oxyhemoglobin Sodium Potassium Chloride Carbon Dioxide BUN Creatinine Glucose POC Glucose 262 H 259 H Hemoglobin A1c Lactic Acid Calcium Phosphorus Magnesium Ferritin AST ALT Alkaline Phosphatase Lactate Dehydrogenase Troponin T C-Reactive Protein Total Protein Albumin LDL Cholesterol Direct Urine Creatinine 190.9 H Urine Total Protein 172 H Salicylates Acetaminophen Crossmatch 11/05/21 11/05/21 11/05/21 04:20 04:20 05:30 WBC 17.9 H RBC 3.64 L Hgb 9.7 L Hct MCH 27 L RDW 16.4 H Plt Count Lymph % (Auto) [place] % (Auto) Lymph # (Auto) [place] # (Auto) Seg Neutrophils % Seg Neuts % (Manual) Lymphocytes % (Manual) Nucleated RBC % Seg Neutrophils # Seg Neutrophils # Man Monocytes # (Manual) PT INR APTT D-Dimer Heparin Anti-Xa Level ABG pH ABG pO2 ABG HCO3 ABG O2 Saturation ABG Base Excess ABG Hemoglobin Oxyhemoglobin Sodium Potassium 5.6 H Chloride 108.4 H Carbon Dioxide BUN 71 H Creatinine 1.9 H Glucose 270 H POC Glucose 283 H Hemoglobin A1c Lactic Acid Calcium Phosphorus Magnesium Ferritin AST ALT Alkaline Phosphatase Lactate Dehydrogenase Troponin T C-Reactive Protein Total Protein Albumin LDL Cholesterol Direct Urine Creatinine Urine Total Protein Salicylates Acetaminophen Crossmatch 11/05/21 11/05/21 11/05/21 10:05 12:10 15:29 WBC RBC Hgb Hct MCH RDW Plt Count Lymph % (Auto) [place] % (Auto) Lymph # (Auto) [place] # (Auto) Seg Neutrophils % Seg Neuts % (Manual) Lymphocytes % (Manual) Nucleated RBC % Seg Neutrophils # Seg Neutrophils # Man Monocytes # (Manual) PT INR APTT D-Dimer Heparin Anti-Xa Level ABG pH 7.248 L ABG pO2 73.7 L ABG HCO3 26.2 H ABG O2 Saturation 93.1 L ABG Base Excess ABG Hemoglobin 8.9 L Oxyhemoglobin 91.4 L Sodium Potassium Chloride Carbon Dioxide BUN Creatinine Glucose POC Glucose 225 H 199 H Hemoglobin A1c Lactic Acid Calcium Phosphorus Magnesium Ferritin AST ALT Alkaline Phosphatase Lactate Dehydrogenase Troponin T C-Reactive Protein Total Protein Albumin LDL Cholesterol Direct Urine Creatinine Urine Total Protein Salicylates Acetaminophen Crossmatch 11/05/21 11/05/21 11/05/21 15:51 17:32 17:40 WBC RBC Hgb Hct MCH RDW Plt Count Lymph % (Auto) [place] % (Auto) Lymph # (Auto) [place] # (Auto) Seg Neutrophils % Seg Neuts % (Manual) Lymphocytes % (Manual) Nucleated RBC % Seg Neutrophils # Seg Neutrophils # Man Monocytes # (Manual) PT INR APTT D-Dimer Heparin Anti-Xa Level ABG pH ABG pO2 ABG HCO3 ABG O2 Saturation ABG Base Excess ABG Hemoglobin Oxyhemoglobin Sodium Potassium 5.2 H Chloride 107.8 H Carbon Dioxide BUN 79 H Creatinine 1.9 H Glucose 204 H POC Glucose 278 H 197 H Hemoglobin A1c Lactic Acid Calcium Phosphorus Magnesium Ferritin AST ALT Alkaline Phosphatase Lactate Dehydrogenase Troponin T C-Reactive Protein Total Protein Albumin LDL Cholesterol Direct Urine Creatinine Urine Total Protein Salicylates Acetaminophen Crossmatch 11/05/21 11/05/21 11/05/21 21:25 22:22 23:43 WBC RBC Hgb Hct MCH RDW Plt Count Lymph % (Auto) [place] % (Auto) Lymph # (Auto) [place] # (Auto) Seg Neutrophils % Seg Neuts % (Manual) Lymphocytes % (Manual) Nucleated RBC % Seg Neutrophils # Seg Neutrophils # Man Monocytes # (Manual) PT INR APTT D-Dimer Heparin Anti-Xa Level ABG pH ABG pO2 ABG HCO3 ABG O2 Saturation ABG Base Excess ABG Hemoglobin Oxyhemoglobin Sodium Potassium 5.3 H Chloride 109.2 H Carbon Dioxide BUN 81 H Creatinine 2.0 H Glucose 195 H POC Glucose 180 H 203 H Hemoglobin A1c Lactic Acid Calcium Phosphorus Magnesium Ferritin AST ALT Alkaline Phosphatase Lactate Dehydrogenase Troponin T C-Reactive Protein Total Protein Albumin LDL Cholesterol Direct Urine Creatinine Urine Total Protein Salicylates Acetaminophen Crossmatch 11/05/21 11/06/21 11/06/21 Unknown 02:35 05:09 WBC RBC Hgb Hct MCH RDW Plt Count Lymph % (Auto) [place] % (Auto) Lymph # (Auto) [place] # (Auto) Seg Neutrophils % Seg Neuts % (Manual) Lymphocytes % (Manual) Nucleated RBC % Seg Neutrophils # Seg Neutrophils # Man Monocytes # (Manual) PT INR APTT D-Dimer Heparin Anti-Xa Level ABG pH ABG pO2 ABG HCO3 ABG O2 Saturation ABG Base Excess ABG Hemoglobin Oxyhemoglobin Sodium 146 H Potassium 6.0 H Chloride 108.1 H 107.1 H Carbon Dioxide 21 L BUN 80 H 84 H Creatinine 2.0 H 2.0 H Glucose 238 H 235 H POC Glucose 215 H Hemoglobin A1c Lactic Acid Calcium Phosphorus Magnesium 2.80 H Ferritin AST ALT 77 H Alkaline Phosphatase Lactate Dehydrogenase Troponin T C-Reactive Protein Total Protein Albumin 3.0 L LDL Cholesterol Direct Urine Creatinine Urine Total Protein Salicylates Acetaminophen Crossmatch 11/06/21 11/06/21 11/06/21 05:40 08:07 08:07 WBC RBC Hgb Hct MCH RDW Plt Count Lymph % (Auto) [place] % (Auto) Lymph # (Auto) [place] # (Auto) Seg Neutrophils % Seg Neuts % (Manual) Lymphocytes % (Manual) Nucleated RBC % Seg Neutrophils # Seg Neutrophils # Man Monocytes # (Manual) PT INR APTT D-Dimer Heparin Anti-Xa Level 1.24 H ABG pH 7.311 L ABG pO2 72.8 L ABG HCO3 29.7 H ABG O2 Saturation 94.1 L ABG Base Excess ABG Hemoglobin 11.4 L Oxyhemoglobin 92.3 L Sodium Potassium 5.2 H Chloride Carbon Dioxide BUN 85 H Creatinine 2.3 H Glucose 236 H POC Glucose Hemoglobin A1c Lactic Acid Calcium Phosphorus Magnesium Ferritin AST ALT Alkaline Phosphatase Lactate Dehydrogenase Troponin T C-Reactive Protein Total Protein Albumin LDL Cholesterol Direct Urine Creatinine Urine Total Protein Salicylates Acetaminophen Crossmatch 11/06/21 11/06/21 11/06/21 12:14 12:57 14:28 WBC RBC Hgb Hct MCH RDW Plt Count Lymph % (Auto) [place] % (Auto) Lymph # (Auto) [place] # (Auto) Seg Neutrophils % Seg Neuts % (Manual) Lymphocytes % (Manual) Nucleated RBC % Seg Neutrophils # Seg Neutrophils # Man Monocytes # (Manual) PT INR APTT D-Dimer Heparin Anti-Xa Level ABG pH 7.282 L ABG pO2 72.6 L ABG HCO3 30.8 H ABG O2 Saturation 93.7 L ABG Base Excess 3.2 H ABG Hemoglobin 8.6 L Oxyhemoglobin 91.8 L Sodium Potassium Chloride Carbon Dioxide BUN 91 H Creatinine 2.6 H Glucose 259 H POC Glucose 225 H Hemoglobin A1c Lactic Acid Calcium Phosphorus Magnesium Ferritin AST ALT Alkaline Phosphatase Lactate Dehydrogenase Troponin T C-Reactive Protein Total Protein Albumin LDL Cholesterol Direct Urine Creatinine Urine Total Protein Salicylates Acetaminophen Crossmatch 11/06/21 11/06/21 11/06/21 17:28 19:20 21:30 WBC RBC Hgb Hct MCH RDW Plt Count Lymph % (Auto) [place] % (Auto) Lymph # (Auto) [place] # (Auto) Seg Neutrophils % Seg Neuts % (Manual) Lymphocytes % (Manual) Nucleated RBC % Seg Neutrophils # Seg Neutrophils # Man Monocytes # (Manual) PT INR APTT D-Dimer Heparin Anti-Xa Level 0.73 H ABG pH ABG pO2 ABG HCO3 ABG O2 Saturation ABG Base Excess ABG Hemoglobin Oxyhemoglobin Sodium Potassium Chloride Carbon Dioxide BUN 95 H Creatinine 2.9 H Glucose 233 H POC Glucose 206 H Hemoglobin A1c Lactic Acid Calcium Phosphorus Magnesium Ferritin AST ALT Alkaline Phosphatase Lactate Dehydrogenase Troponin T C-Reactive Protein Total Protein Albumin LDL Cholesterol Direct Urine Creatinine Urine Total Protein Salicylates Acetaminophen Crossmatch 11/06/21 11/07/21 11/07/21 22:56 05:06 06:30 WBC RBC Hgb Hct MCH RDW Plt Count Lymph % (Auto) [place] % (Auto) Lymph # (Auto) [place] # (Auto) Seg Neutrophils % Seg Neuts % (Manual) Lymphocytes % (Manual) Nucleated RBC % Seg Neutrophils # Seg Neutrophils # Man Monocytes # (Manual) PT INR APTT D-Dimer Heparin Anti-Xa Level ABG pH ABG pO2 ABG HCO3 ABG O2 Saturation ABG Base Excess ABG Hemoglobin Oxyhemoglobin Sodium 146 H Potassium Chloride Carbon Dioxide BUN 98 H Creatinine 2.8 H Glucose 202 H POC Glucose 215 H 172 H Hemoglobin A1c Lactic Acid Calcium Phosphorus 4.90 H D Magnesium 2.90 H Ferritin AST ALT Alkaline Phosphatase Lactate Dehydrogenase Troponin T C-Reactive Protein Total Protein Albumin LDL Cholesterol Direct Urine Creatinine Urine Total Protein Salicylates Acetaminophen Crossmatch 11/07/21 11/07/21 11/07/21 06:30 11:26 12:15 WBC 16.0 H RBC 3.06 L Hgb 8.2 L Hct 26.1 L MCH 27 L RDW 16.2 H Plt Count Lymph % (Auto) [place] % (Auto) Lymph # (Auto) [place] # (Auto) Seg Neutrophils % Seg Neuts % (Manual) 77.0 H Lymphocytes % (Manual) 11.0 L Nucleated RBC % 2.0 H Seg Neutrophils # Seg Neutrophils # Man 12.3 H Monocytes # (Manual) PT INR APTT D-Dimer Heparin Anti-Xa Level ABG pH 7.298 L ABG pO2 73.0 L ABG HCO3 33.3 H ABG O2 Saturation 94.4 L ABG Base Excess 5.8 H ABG Hemoglobin 8.2 L Oxyhemoglobin 92.7 L Sodium Potassium Chloride Carbon Dioxide BUN Creatinine Glucose POC Glucose 179 H Hemoglobin A1c Lactic Acid Calcium Phosphorus Magnesium Ferritin AST ALT Alkaline Phosphatase Lactate Dehydrogenase Troponin T C-Reactive Protein Total Protein Albumin LDL Cholesterol Direct Urine Creatinine Urine Total Protein Salicylates Acetaminophen Crossmatch 11/07/21 11/07/21 11/07/21 17:57 22:16 23:49 WBC RBC Hgb Hct MCH RDW Plt Count Lymph % (Auto) [place] % (Auto) Lymph # (Auto) [place] # (Auto) Seg Neutrophils % Seg Neuts % (Manual) Lymphocytes % (Manual) Nucleated RBC % Seg Neutrophils # Seg Neutrophils # Man Monocytes # (Manual) PT INR APTT D-Dimer Heparin Anti-Xa Level ABG pH ABG pO2 ABG HCO3 ABG O2 Saturation ABG Base Excess ABG Hemoglobin Oxyhemoglobin Sodium Potassium Chloride Carbon Dioxide BUN Creatinine Glucose POC Glucose 166 H 223 H 190 H Hemoglobin A1c Lactic Acid Calcium Phosphorus Magnesium Ferritin AST ALT Alkaline Phosphatase Lactate Dehydrogenase Troponin T C-Reactive Protein Total Protein Albumin LDL Cholesterol Direct Urine Creatinine Urine Total Protein Salicylates Acetaminophen Crossmatch 11/08/21 11/08/21 11/08/21 04:20 04:20 06:16 WBC 22.1 H RBC 3.01 L Hgb 8.1 L Hct 25.6 L MCH 27 L RDW 15.4 H Plt Count Lymph % (Auto) [place] % (Auto) Lymph # (Auto) [place] # (Auto) Seg Neutrophils % Seg Neuts % (Manual) Lymphocytes % (Manual) Nucleated RBC % Seg Neutrophils # Seg Neutrophils # Man Monocytes # (Manual) PT INR APTT D-Dimer Heparin Anti-Xa Level ABG pH ABG pO2 ABG HCO3 ABG O2 Saturation ABG Base Excess ABG Hemoglobin Oxyhemoglobin Sodium 151 H Potassium 3.1 L D Chloride 107.3 H Carbon Dioxide 31 H BUN 82 H Creatinine 1.8 H Glucose 232 H POC Glucose 198 H Hemoglobin A1c Lactic Acid Calcium 8.1 L Phosphorus Magnesium Ferritin AST ALT Alkaline Phosphatase Lactate Dehydrogenase Troponin T C-Reactive Protein Total Protein Albumin LDL Cholesterol Direct Urine Creatinine Urine Total Protein Salicylates Acetaminophen Crossmatch 11/08/21 11/08/21 11/08/21 11:38 12:00 18:29 WBC RBC Hgb Hct MCH RDW Plt Count Lymph % (Auto) [place] % (Auto) Lymph # (Auto) [place] # (Auto) Seg Neutrophils % Seg Neuts % (Manual) Lymphocytes % (Manual) Nucleated RBC % Seg Neutrophils # Seg Neutrophils # Man Monocytes # (Manual) PT INR APTT D-Dimer Heparin Anti-Xa Level ABG pH ABG pO2 ABG HCO3 ABG O2 Saturation ABG Base Excess ABG Hemoglobin Oxyhemoglobin Sodium Potassium 3.0 L Chloride Carbon Dioxide BUN Creatinine Glucose POC Glucose 190 H 211 H Hemoglobin A1c Lactic Acid Calcium Phosphorus Magnesium Ferritin AST ALT Alkaline Phosphatase Lactate Dehydrogenase Troponin T C-Reactive Protein Total Protein Albumin LDL Cholesterol Direct Urine Creatinine Urine Total Protein Salicylates Acetaminophen Crossmatch 11/08/21 11/08/21 11/09/21 21:34 21:40 00:36 WBC RBC Hgb Hct MCH RDW Plt Count Lymph % (Auto) [place] % (Auto) Lymph # (Auto) [place] # (Auto) Seg Neutrophils % Seg Neuts % (Manual) Lymphocytes % (Manual) Nucleated RBC % Seg Neutrophils # Seg Neutrophils # Man Monocytes # (Manual) PT INR APTT D-Dimer Heparin Anti-Xa Level ABG pH ABG pO2 ABG HCO3 ABG O2 Saturation ABG Base Excess ABG Hemoglobin Oxyhemoglobin Sodium 148 H Potassium 2.8 L* Chloride Carbon Dioxide 31 H BUN 68 H Creatinine 1.5 H Glucose 191 H POC Glucose 194 H 140 H Hemoglobin A1c Lactic Acid Calcium 8.2 L Phosphorus Magnesium Ferritin AST ALT Alkaline Phosphatase Lactate Dehydrogenase Troponin T C-Reactive Protein Total Protein Albumin LDL Cholesterol Direct Urine Creatinine Urine Total Protein Salicylates Acetaminophen Crossmatch 11/09/21 11/09/21 11/09/21 04:51 04:51 04:51 WBC 27.6 H RBC 3.18 L Hgb 8.4 L Hct 26.6 L MCH 27 L RDW 15.3 H Plt Count Lymph % (Auto) [place] % (Auto) Lymph # (Auto) [place] # (Auto) Seg Neutrophils % Seg Neuts % (Manual) Lymphocytes % (Manual) Nucleated RBC % Seg Neutrophils # Seg Neutrophils # Man Monocytes # (Manual) PT INR APTT D-Dimer Heparin Anti-Xa Level 0.18 L ABG pH ABG pO2 ABG HCO3 ABG O2 Saturation ABG Base Excess ABG Hemoglobin Oxyhemoglobin Sodium 148 H Potassium 2.7 L* Chloride Carbon Dioxide BUN 59 H Creatinine 1.4 H Glucose 143 H POC Glucose Hemoglobin A1c Lactic Acid Calcium 8.3 L Phosphorus Magnesium Ferritin AST ALT Alkaline Phosphatase Lactate Dehydrogenase Troponin T C-Reactive Protein Total Protein Albumin LDL Cholesterol Direct Urine Creatinine Urine Total Protein Salicylates Acetaminophen Crossmatch 11/09/21 11/09/21 11/09/21 05:52 08:45 11:00 WBC RBC Hgb Hct MCH RDW Plt Count Lymph % (Auto) [place] % (Auto) Lymph # (Auto) [place] # (Auto) Seg Neutrophils % Seg Neuts % (Manual) Lymphocytes % (Manual) Nucleated RBC % Seg Neutrophils # Seg Neutrophils # Man Monocytes # (Manual) PT INR APTT D-Dimer Heparin Anti-Xa Level ABG pH ABG pO2 73.2 L ABG HCO3 33.8 H ABG O2 Saturation ABG Base Excess 8.7 H ABG Hemoglobin 8.5 L Oxyhemoglobin 94.1 L Sodium Potassium Chloride Carbon Dioxide BUN Creatinine Glucose POC Glucose 166 H 136 H Hemoglobin A1c Lactic Acid Calcium Phosphorus Magnesium Ferritin AST ALT Alkaline Phosphatase Lactate Dehydrogenase Troponin T C-Reactive Protein Total Protein Albumin LDL Cholesterol Direct Urine Creatinine Urine Total Protein Salicylates Acetaminophen Crossmatch 11/09/21 11/09/21 11/09/21 15:48 16:10 20:31 WBC RBC Hgb Hct MCH RDW Plt Count Lymph % (Auto) [place] % (Auto) Lymph # (Auto) [place] # (Auto) Seg Neutrophils % Seg Neuts % (Manual) Lymphocytes % (Manual) Nucleated RBC % Seg Neutrophils # Seg Neutrophils # Man Monocytes # (Manual) PT INR APTT D-Dimer Heparin Anti-Xa Level ABG pH ABG pO2 ABG HCO3 ABG O2 Saturation ABG Base Excess ABG Hemoglobin Oxyhemoglobin Sodium Potassium 2.8 L* Chloride Carbon Dioxide 31 H BUN 53 H Creatinine 1.3 H Glucose 208 H POC Glucose 203 H 166 H Hemoglobin A1c Lactic Acid Calcium 7.9 L Phosphorus Magnesium Ferritin AST ALT Alkaline Phosphatase Lactate Dehydrogenase Troponin T C-Reactive Protein Total Protein Albumin LDL Cholesterol Direct Urine Creatinine Urine Total Protein Salicylates Acetaminophen Crossmatch 11/09/21 11/09/21 11/09/21 21:30 23:16 Unknown WBC RBC Hgb Hct MCH RDW Plt Count Lymph % (Auto) [place] % (Auto) Lymph # (Auto) [place] # (Auto) Seg Neutrophils % Seg Neuts % (Manual) Lymphocytes % (Manual) Nucleated RBC % Seg Neutrophils # Seg Neutrophils # Man Monocytes # (Manual) PT INR APTT D-Dimer Heparin Anti-Xa Level 0.24 L ABG pH ABG pO2 ABG HCO3 ABG O2 Saturation ABG Base Excess ABG Hemoglobin Oxyhemoglobin Sodium Potassium Chloride Carbon Dioxide BUN 52 H Creatinine 1.4 H Glucose 185 H POC Glucose 172 H Hemoglobin A1c Lactic Acid Calcium 7.8 L Phosphorus Magnesium Ferritin AST ALT Alkaline Phosphatase Lactate Dehydrogenase Troponin T C-Reactive Protein Total Protein Albumin LDL Cholesterol Direct Urine Creatinine Urine Total Protein Salicylates Acetaminophen Crossmatch 11/10/21 11/10/21 11/10/21 02:00 04:17 04:17 WBC 24.5 H RBC 2.75 L Hgb 7.5 L Hct 22.9 L MCH 27 L RDW Plt Count Lymph % (Auto) [place] % (Auto) Lymph # (Auto) [place] # (Auto) Seg Neutrophils % Seg Neuts % (Manual) Lymphocytes % (Manual) Nucleated RBC % Seg Neutrophils # Seg Neutrophils # Man Monocytes # (Manual) PT INR APTT D-Dimer Heparin Anti-Xa Level 0.26 L ABG pH ABG pO2 ABG HCO3 ABG O2 Saturation ABG Base Excess ABG Hemoglobin Oxyhemoglobin Sodium Potassium 2.9 L* Chloride Carbon Dioxide 35 H BUN 48 H Creatinine Glucose 212 H POC Glucose Hemoglobin A1c Lactic Acid Calcium 8.1 L Phosphorus Magnesium Ferritin AST ALT Alkaline Phosphatase Lactate Dehydrogenase Troponin T C-Reactive Protein Total Protein Albumin LDL Cholesterol Direct Urine Creatinine Urine Total Protein Salicylates Acetaminophen Crossmatch 11/10/21 11/10/21 11/10/21 05:01 08:39 11:03 WBC RBC Hgb Hct MCH RDW Plt Count Lymph % (Auto) [place] % (Auto) Lymph # (Auto) [place] # (Auto) Seg Neutrophils % Seg Neuts % (Manual) Lymphocytes % (Manual) Nucleated RBC % Seg Neutrophils # Seg Neutrophils # Man Monocytes # (Manual) PT INR APTT D-Dimer Heparin Anti-Xa Level 0.12 L ABG pH ABG pO2 ABG HCO3 ABG O2 Saturation ABG Base Excess ABG Hemoglobin Oxyhemoglobin Sodium Potassium Chloride Carbon Dioxide BUN Creatinine Glucose POC Glucose 203 H 152 H Hemoglobin A1c Lactic Acid Calcium Phosphorus Magnesium Ferritin AST ALT Alkaline Phosphatase Lactate Dehydrogenase Troponin T C-Reactive Protein Total Protein Albumin LDL Cholesterol Direct Urine Creatinine Urine Total Protein Salicylates Acetaminophen Crossmatch 11/10/21 11/10/21 11/10/21 12:45 15:43 21:05 WBC RBC Hgb Hct MCH RDW Plt Count Lymph % (Auto) [place] % (Auto) Lymph # (Auto) [place] # (Auto) Seg Neutrophils % Seg Neuts % (Manual) Lymphocytes % (Manual) Nucleated RBC % Seg Neutrophils # Seg Neutrophils # Man Monocytes # (Manual) PT INR APTT D-Dimer Heparin Anti-Xa Level ABG pH ABG pO2 ABG HCO3 ABG O2 Saturation ABG Base Excess ABG Hemoglobin Oxyhemoglobin Sodium 146 H Potassium 3.3 L Chloride Carbon Dioxide 31 H BUN 43 H Creatinine Glucose 155 H POC Glucose 139 H 139 H Hemoglobin A1c Lactic Acid Calcium 8.3 L Phosphorus Magnesium Ferritin AST ALT Alkaline Phosphatase Lactate Dehydrogenase Troponin T C-Reactive Protein Total Protein Albumin LDL Cholesterol Direct Urine Creatinine Urine Total Protein Salicylates Acetaminophen Crossmatch 11/10/21 11/11/21 11/11/21 23:25 03:49 03:49 WBC 22.1 H RBC 2.69 L Hgb 7.2 L Hct 22.7 L MCH 27 L RDW Plt Count Lymph % (Auto) [place] % (Auto) Lymph # (Auto) [place] # (Auto) Seg Neutrophils % Seg Neuts % (Manual) Lymphocytes % (Manual) Nucleated RBC % Seg Neutrophils # Seg Neutrophils # Man Monocytes # (Manual) PT INR APTT D-Dimer Heparin Anti-Xa Level ABG pH ABG pO2 ABG HCO3 ABG O2 Saturation ABG Base Excess ABG Hemoglobin Oxyhemoglobin Sodium Potassium Chloride Carbon Dioxide 32 H BUN 44 H Creatinine 1.3 H Glucose 173 H POC Glucose 146 H Hemoglobin A1c Lactic Acid Calcium Phosphorus Magnesium Ferritin AST ALT Alkaline Phosphatase Lactate Dehydrogenase Troponin T C-Reactive Protein Total Protein Albumin LDL Cholesterol Direct Urine Creatinine Urine Total Protein Salicylates Acetaminophen Crossmatch 11/11/21 11/11/21 11/11/21 05:03 10:50 11:32 WBC RBC Hgb Hct MCH RDW Plt Count Lymph % (Auto) [place] % (Auto) Lymph # (Auto) [place] # (Auto) Seg Neutrophils % Seg Neuts % (Manual) Lymphocytes % (Manual) Nucleated RBC % Seg Neutrophils # Seg Neutrophils # Man Monocytes # (Manual) PT INR APTT D-Dimer Heparin Anti-Xa Level ABG pH ABG pO2 ABG HCO3 ABG O2 Saturation ABG Base Excess ABG Hemoglobin Oxyhemoglobin Sodium Potassium Chloride Carbon Dioxide BUN Creatinine Glucose POC Glucose 152 H 129 H 133 H Hemoglobin A1c Lactic Acid Calcium Phosphorus Magnesium Ferritin AST ALT Alkaline Phosphatase Lactate Dehydrogenase Troponin T C-Reactive Protein Total Protein Albumin LDL Cholesterol Direct Urine Creatinine Urine Total Protein Salicylates Acetaminophen Crossmatch 11/11/21 11/11/21 11/11/21 13:53 16:31 17:13 WBC RBC Hgb Hct MCH RDW Plt Count Lymph % (Auto) [place] % (Auto) Lymph # (Auto) [place] # (Auto) Seg Neutrophils % Seg Neuts % (Manual) Lymphocytes % (Manual) Nucleated RBC % Seg Neutrophils # Seg Neutrophils # Man Monocytes # (Manual) PT INR APTT D-Dimer Heparin Anti-Xa Level ABG pH 7.475 H ABG pO2 64.1 L ABG HCO3 32.4 H ABG O2 Saturation ABG Base Excess 8.0 H ABG Hemoglobin 7.6 L Oxyhemoglobin 94.0 L Sodium Potassium Chloride Carbon Dioxide BUN Creatinine Glucose POC Glucose 116 H 125 H Hemoglobin A1c Lactic Acid Calcium Phosphorus Magnesium Ferritin AST ALT Alkaline Phosphatase Lactate Dehydrogenase Troponin T C-Reactive Protein Total Protein Albumin LDL Cholesterol Direct Urine Creatinine Urine Total Protein Salicylates Acetaminophen Crossmatch 11/11/21 11/11/21 11/12/21 20:40 23:35 03:30 WBC 17.7 H RBC 2.37 L Hgb 6.3 L Hct 20.0 L MCH 27 L RDW 15.5 H Plt Count Lymph % (Auto) [place] % (Auto) Lymph # (Auto) [place] # (Auto) Seg Neutrophils % Seg Neuts % (Manual) Lymphocytes % (Manual) Nucleated RBC % Seg Neutrophils # Seg Neutrophils # Man Monocytes # (Manual) PT INR APTT D-Dimer Heparin Anti-Xa Level 0.26 L ABG pH ABG pO2 ABG HCO3 ABG O2 Saturation ABG Base Excess ABG Hemoglobin Oxyhemoglobin Sodium Potassium Chloride Carbon Dioxide BUN Creatinine Glucose POC Glucose 118 H Hemoglobin A1c Lactic Acid Calcium Phosphorus Magnesium Ferritin AST ALT Alkaline Phosphatase Lactate Dehydrogenase Troponin T C-Reactive Protein Total Protein Albumin LDL Cholesterol Direct Urine Creatinine Urine Total Protein Salicylates Acetaminophen Crossmatch 11/12/21 11/12/21 11/12/21 03:30 04:15 11:53 WBC RBC Hgb Hct MCH RDW Plt Count Lymph % (Auto) [place] % (Auto) Lymph # (Auto) [place] # (Auto) Seg Neutrophils % Seg Neuts % (Manual) Lymphocytes % (Manual) Nucleated RBC % Seg Neutrophils # Seg Neutrophils # Man Monocytes # (Manual) PT INR APTT D-Dimer Heparin Anti-Xa Level ABG pH ABG pO2 ABG HCO3 ABG O2 Saturation ABG Base Excess ABG Hemoglobin Oxyhemoglobin Sodium Potassium Chloride Carbon Dioxide 33 H BUN 38 H Creatinine 1.3 H Glucose 102 H POC Glucose 62 L Hemoglobin A1c Lactic Acid Calcium 8.2 L Phosphorus Magnesium Ferritin AST ALT Alkaline Phosphatase Lactate Dehydrogenase Troponin T C-Reactive Protein Total Protein Albumin LDL Cholesterol Direct Urine Creatinine Urine Total Protein Salicylates Acetaminophen Crossmatch See Detail 11/12/21 11/12/21 11/12/21 17:20 19:14 23:11 WBC RBC Hgb 6.2 L Hct 19.5 L* MCH RDW Plt Count Lymph % (Auto) [place] % (Auto) Lymph # (Auto) [place] # (Auto) Seg Neutrophils % Seg Neuts % (Manual) Lymphocytes % (Manual) Nucleated RBC % Seg Neutrophils # Seg Neutrophils # Man Monocytes # (Manual) PT INR APTT D-Dimer Heparin Anti-Xa Level ABG pH ABG pO2 ABG HCO3 ABG O2 Saturation ABG Base Excess ABG Hemoglobin Oxyhemoglobin Sodium Potassium Chloride Carbon Dioxide BUN Creatinine Glucose POC Glucose 115 H 131 H Hemoglobin A1c Lactic Acid Calcium Phosphorus Magnesium Ferritin AST ALT Alkaline Phosphatase Lactate Dehydrogenase Troponin T C-Reactive Protein Total Protein Albumin LDL Cholesterol Direct Urine Creatinine Urine Total Protein Salicylates Acetaminophen Crossmatch 11/13/21 11/13/21 11/13/21 00:13 04:17 04:17 WBC 23.8 H RBC 2.84 L Hgb 7.4 L 7.8 L Hct 23.3 L 24.9 L MCH 27 L RDW 15.4 H Plt Count Lymph % (Auto) [place] % (Auto) Lymph # (Auto) [place] # (Auto) Seg Neutrophils % Seg Neuts % (Manual) Lymphocytes % (Manual) Nucleated RBC % Seg Neutrophils # Seg Neutrophils # Man Monocytes # (Manual) PT INR APTT D-Dimer Heparin Anti-Xa Level ABG pH ABG pO2 ABG HCO3 ABG O2 Saturation ABG Base Excess ABG Hemoglobin Oxyhemoglobin Sodium 146 H Potassium Chloride Carbon Dioxide BUN 44 H Creatinine 1.6 H Glucose 144 H POC Glucose Hemoglobin A1c Lactic Acid Calcium 7.9 L Phosphorus 5.10 H D Magnesium Ferritin AST ALT Alkaline Phosphatase Lactate Dehydrogenase Troponin T C-Reactive Protein Total Protein Albumin LDL Cholesterol Direct Urine Creatinine Urine Total Protein Salicylates Acetaminophen Crossmatch 11/13/21 11/13/21 11/13/21 05:52 10:54 15:57 WBC RBC Hgb Hct MCH RDW Plt Count Lymph % (Auto) [place] % (Auto) Lymph # (Auto) [place] # (Auto) Seg Neutrophils % Seg Neuts % (Manual) Lymphocytes % (Manual) Nucleated RBC % Seg Neutrophils # Seg Neutrophils # Man Monocytes # (Manual) PT INR APTT D-Dimer Heparin Anti-Xa Level ABG pH ABG pO2 ABG HCO3 ABG O2 Saturation ABG Base Excess ABG Hemoglobin Oxyhemoglobin Sodium Potassium Chloride Carbon Dioxide BUN Creatinine Glucose POC Glucose 123 H 147 H 207 H Hemoglobin A1c Lactic Acid Calcium Phosphorus Magnesium Ferritin AST ALT Alkaline Phosphatase Lactate Dehydrogenase Troponin T C-Reactive Protein Total Protein Albumin LDL Cholesterol Direct Urine Creatinine Urine Total Protein Salicylates Acetaminophen Crossmatch 11/13/21 11/13/21 11/14/21 16:01 23:18 04:55 WBC 23.9 H RBC 2.86 L Hgb 6.5 L 8.3 L Hct 20.3 L 24.5 L MCH RDW Plt Count Lymph % (Auto) [place] % (Auto) Lymph # (Auto) [place] # (Auto) Seg Neutrophils % Seg Neuts % (Manual) Lymphocytes % (Manual) Nucleated RBC % Seg Neutrophils # Seg Neutrophils # Man Monocytes # (Manual) PT INR APTT D-Dimer Heparin Anti-Xa Level ABG pH ABG pO2 ABG HCO3 ABG O2 Saturation ABG Base Excess ABG Hemoglobin Oxyhemoglobin Sodium Potassium Chloride Carbon Dioxide BUN Creatinine Glucose POC Glucose 209 H Hemoglobin A1c Lactic Acid Calcium Phosphorus Magnesium Ferritin AST ALT Alkaline Phosphatase Lactate Dehydrogenase Troponin T C-Reactive Protein Total Protein Albumin LDL Cholesterol Direct Urine Creatinine Urine Total Protein Salicylates Acetaminophen Crossmatch 11/14/21 11/14/21 11/14/21 04:55 05:09 11:35 WBC RBC Hgb Hct MCH RDW Plt Count Lymph % (Auto) [place] % (Auto) Lymph # (Auto) [place] # (Auto) Seg Neutrophils % Seg Neuts % (Manual) Lymphocytes % (Manual) Nucleated RBC % Seg Neutrophils # Seg Neutrophils # Man Monocytes # (Manual) PT INR APTT D-Dimer Heparin Anti-Xa Level ABG pH ABG pO2 ABG HCO3 ABG O2 Saturation ABG Base Excess ABG Hemoglobin Oxyhemoglobin Sodium 148 H Potassium Chloride 109.0 H Carbon Dioxide BUN 42 H Creatinine 1.6 H Glucose 184 H POC Glucose 169 H 154 H Hemoglobin A1c Lactic Acid Calcium 8.0 L Phosphorus Magnesium Ferritin AST ALT Alkaline Phosphatase Lactate Dehydrogenase Troponin T C-Reactive Protein Total Protein Albumin LDL Cholesterol Direct Urine Creatinine Urine Total Protein Salicylates Acetaminophen Crossmatch 11/14/21 11/14/21 11/15/21 16:57 23:11 04:36 WBC RBC Hgb Hct MCH RDW Plt Count Lymph % (Auto) [place] % (Auto) Lymph # (Auto) [place] # (Auto) Seg Neutrophils % Seg Neuts % (Manual) Lymphocytes % (Manual) Nucleated RBC % Seg Neutrophils # Seg Neutrophils # Man Monocytes # (Manual) PT INR APTT D-Dimer Heparin Anti-Xa Level ABG pH ABG pO2 ABG HCO3 ABG O2 Saturation ABG Base Excess ABG Hemoglobin Oxyhemoglobin Sodium 151 H Potassium Chloride 111.2 H Carbon Dioxide BUN 36 H Creatinine 1.3 H Glucose 136 H POC Glucose 124 H 118 H Hemoglobin A1c Lactic Acid Calcium 8.1 L Phosphorus Magnesium Ferritin AST ALT Alkaline Phosphatase Lactate Dehydrogenase Troponin T C-Reactive Protein Total Protein Albumin LDL Cholesterol Direct Urine Creatinine Urine Total Protein Salicylates Acetaminophen Crossmatch 11/15/21 11/15/21 11/16/21 11:18 21:49 00:15 WBC RBC Hgb Hct MCH RDW Plt Count Lymph % (Auto) [place] % (Auto) Lymph # (Auto) [place] # (Auto) Seg Neutrophils % Seg Neuts % (Manual) Lymphocytes % (Manual) Nucleated RBC % Seg Neutrophils # Seg Neutrophils # Man Monocytes # (Manual) PT INR APTT D-Dimer Heparin Anti-Xa Level ABG pH ABG pO2 ABG HCO3 ABG O2 Saturation ABG Base Excess ABG Hemoglobin Oxyhemoglobin Sodium Potassium Chloride Carbon Dioxide BUN Creatinine Glucose POC Glucose 154 H 154 H 146 H Hemoglobin A1c Lactic Acid Calcium Phosphorus Magnesium Ferritin AST ALT Alkaline Phosphatase Lactate Dehydrogenase Troponin T C-Reactive Protein Total Protein Albumin LDL Cholesterol Direct Urine Creatinine Urine Total Protein Salicylates Acetaminophen Crossmatch 11/16/21 11/16/21 11/16/21 05:11 05:11 05:37 WBC 18.2 H RBC 2.92 L Hgb 8.3 L Hct 26.1 L MCH RDW 15.8 H Plt Count Lymph % (Auto) 6.3 L [place] % (Auto) 10.2 H Lymph # (Auto) [place] # (Auto) 1.9 H Seg Neutrophils % 81.7 H Seg Neuts % (Manual) Lymphocytes % (Manual) Nucleated RBC % Seg Neutrophils # 14.9 H Seg Neutrophils # Man Monocytes # (Manual) PT INR APTT D-Dimer Heparin Anti-Xa Level ABG pH ABG pO2 ABG HCO3 ABG O2 Saturation ABG Base Excess ABG Hemoglobin Oxyhemoglobin Sodium 146 H Potassium Chloride 108.0 H Carbon Dioxide BUN 25 H Creatinine Glucose 123 H POC Glucose 109 H Hemoglobin A1c Lactic Acid Calcium 7.8 L Phosphorus Magnesium Ferritin AST ALT Alkaline Phosphatase Lactate Dehydrogenase Troponin T C-Reactive Protein Total Protein Albumin LDL Cholesterol Direct Urine Creatinine Urine Total Protein Salicylates Acetaminophen Crossmatch 11/16/21 11/16/21 11/17/21 11:22 23:55 04:33 WBC RBC Hgb Hct MCH RDW Plt Count Lymph % (Auto) [place] % (Auto) Lymph # (Auto) [place] # (Auto) Seg Neutrophils % Seg Neuts % (Manual) Lymphocytes % (Manual) Nucleated RBC % Seg Neutrophils # Seg Neutrophils # Man Monocytes # (Manual) PT INR APTT D-Dimer Heparin Anti-Xa Level ABG pH ABG pO2 ABG HCO3 ABG O2 Saturation ABG Base Excess ABG Hemoglobin Oxyhemoglobin Sodium Potassium Chloride Carbon Dioxide BUN 20 H Creatinine Glucose POC Glucose 136 H 113 H Hemoglobin A1c Lactic Acid Calcium 7.5 L Phosphorus Magnesium Ferritin AST ALT Alkaline Phosphatase Lactate Dehydrogenase Troponin T C-Reactive Protein Total Protein Albumin LDL Cholesterol Direct Urine Creatinine Urine Total Protein Salicylates Acetaminophen Crossmatch 11/17/21 11/18/21 11/18/21 23:22 04:53 04:53 WBC 13.0 H RBC 2.99 L Hgb 8.5 L Hct 26.4 L MCH RDW Plt Count Lymph % (Auto) 9.5 L [place] % (Auto) 9.8 H Lymph # (Auto) [place] # (Auto) 1.3 H Seg Neutrophils % 78.3 H Seg Neuts % (Manual) Lymphocytes % (Manual) Nucleated RBC % Seg Neutrophils # 10.2 H Seg Neutrophils # Man Monocytes # (Manual) PT INR APTT D-Dimer Heparin Anti-Xa Level ABG pH ABG pO2 ABG HCO3 ABG O2 Saturation ABG Base Excess ABG Hemoglobin Oxyhemoglobin Sodium Potassium Chloride Carbon Dioxide BUN 18 H Creatinine Glucose 106 H POC Glucose 112 H Hemoglobin A1c Lactic Acid Calcium 8.1 L Phosphorus Magnesium Ferritin AST ALT Alkaline Phosphatase Lactate Dehydrogenase Troponin T C-Reactive Protein Total Protein Albumin LDL Cholesterol Direct Urine Creatinine Urine Total Protein Salicylates Acetaminophen Crossmatch 11/18/21 11/18/21 11/19/21 11:35 17:42 14:38 WBC RBC Hgb Hct MCH RDW Plt Count Lymph % (Auto) [place] % (Auto) Lymph # (Auto) [place] # (Auto) Seg Neutrophils % Seg Neuts % (Manual) Lymphocytes % (Manual) Nucleated RBC % Seg Neutrophils # Seg Neutrophils # Man Monocytes # (Manual) PT INR APTT D-Dimer Heparin Anti-Xa Level ABG pH ABG pO2 ABG HCO3 ABG O2 Saturation ABG Base Excess ABG Hemoglobin Oxyhemoglobin Sodium Potassium Chloride 97.5 L Carbon Dioxide 31 H BUN Creatinine Glucose 146 H POC Glucose 143 H 132 H Hemoglobin A1c Lactic Acid Calcium Phosphorus Magnesium 1.60 L Ferritin AST ALT Alkaline Phosphatase Lactate Dehydrogenase Troponin T C-Reactive Protein Total Protein Albumin LDL Cholesterol Direct Urine Creatinine Urine Total Protein Salicylates Acetaminophen Crossmatch 11/19/21 11/19/21 11/20/21 16:24 23:58 07:42 WBC RBC 3.01 L Hgb 8.6 L Hct 26.7 L MCH RDW 15.4 H Plt Count Lymph % (Auto) [place] % (Auto) Lymph # (Auto) [place] # (Auto) Seg Neutrophils % Seg Neuts % (Manual) Lymphocytes % (Manual) Nucleated RBC % Seg Neutrophils # Seg Neutrophils # Man Monocytes # (Manual) PT INR APTT D-Dimer Heparin Anti-Xa Level ABG pH ABG pO2 ABG HCO3 ABG O2 Saturation ABG Base Excess ABG Hemoglobin Oxyhemoglobin Sodium Potassium Chloride Carbon Dioxide BUN Creatinine Glucose POC Glucose 129 H 125 H Hemoglobin A1c Lactic Acid Calcium Phosphorus Magnesium Ferritin AST ALT Alkaline Phosphatase Lactate Dehydrogenase Troponin T C-Reactive Protein Total Protein Albumin LDL Cholesterol Direct Urine Creatinine Urine Total Protein Salicylates Acetaminophen Crossmatch 11/20/21 11/20/21 11/20/21 07:42 11:25 22:59 WBC RBC Hgb Hct MCH RDW Plt Count Lymph % (Auto) [place] % (Auto) Lymph # (Auto) [place] # (Auto) Seg Neutrophils % Seg Neuts % (Manual) Lymphocytes % (Manual) Nucleated RBC % Seg Neutrophils # Seg Neutrophils # Man Monocytes # (Manual) PT INR APTT D-Dimer Heparin Anti-Xa Level ABG pH ABG pO2 ABG HCO3 ABG O2 Saturation ABG Base Excess ABG Hemoglobin Oxyhemoglobin Sodium Potassium Chloride Carbon Dioxide 31 H BUN Creatinine Glucose POC Glucose 116 H 113 H Hemoglobin A1c Lactic Acid Calcium Phosphorus Magnesium Ferritin AST ALT Alkaline Phosphatase Lactate Dehydrogenase Troponin T C-Reactive Protein Total Protein Albumin LDL Cholesterol Direct Urine Creatinine Urine Total Protein Salicylates Acetaminophen Crossmatch 11/21/21 11/22/2122 10:50 05:10 16:12 WBC RBC Hgb Hct MCH RDW Plt Count Lymph % (Auto) [place] % (Auto) Lymph # (Auto) [place] # (Auto) Seg Neutrophils % Seg Neuts % (Manual) Lymphocytes % (Manual) Nucleated RBC % Seg Neutrophils # Seg Neutrophils # Man Monocytes # (Manual) PT INR APTT D-Dimer Heparin Anti-Xa Level ABG pH ABG pO2 ABG HCO3 ABG O2 Saturation ABG Base Excess ABG Hemoglobin Oxyhemoglobin Sodium Potassium Chloride Carbon Dioxide 32 H BUN Creatinine Glucose POC Glucose 156 H 110 H Hemoglobin A1c Lactic Acid Calcium 8.1 L Phosphorus Magnesium Ferritin AST ALT Alkaline Phosphatase Lactate Dehydrogenase Troponin T C-Reactive Protein Total Protein Albumin LDL Cholesterol Direct Urine Creatinine Urine Total Protein Salicylates Acetaminophen Crossmatch 11/23/21 11/23/21 11/23/21 07:18 07:18 11:45 WBC RBC 3.23 L Hgb 9.1 L Hct 28.5 L MCH RDW 15.6 H Plt Count Lymph % (Auto) [place] % (Auto) Lymph # (Auto) [place] # (Auto) Seg Neutrophils % Seg Neuts % (Manual) Lymphocytes % (Manual) Nucleated RBC % Seg Neutrophils # Seg Neutrophils # Man Monocytes # (Manual) PT INR APTT D-Dimer Heparin Anti-Xa Level ABG pH ABG pO2 ABG HCO3 ABG O2 Saturation ABG Base Excess ABG Hemoglobin Oxyhemoglobin Sodium Potassium 3.3 L Chloride 96.8 L Carbon Dioxide 32 H BUN Creatinine Glucose POC Glucose 140 H Hemoglobin A1c Lactic Acid Calcium Phosphorus Magnesium Ferritin AST ALT Alkaline Phosphatase Lactate Dehydrogenase Troponin T C-Reactive Protein Total Protein Albumin LDL Cholesterol Direct Urine Creatinine Urine Total Protein Salicylates Acetaminophen Crossmatch 11/23/21 11/23/21 11/24/21 16:40 23:45 07:19 WBC RBC 3.12 L Hgb 9.3 L Hct 27.2 L MCH RDW 16.0 H Plt Count Lymph % (Auto) 10.3 L [place] % (Auto) 10.0 H Lymph # (Auto) 1.1 L [place] # (Auto) 1.1 H Seg Neutrophils % 75.2 H Seg Neuts % (Manual) Lymphocytes % (Manual) Nucleated RBC % Seg Neutrophils # 7.9 H Seg Neutrophils # Man Monocytes # (Manual) PT INR APTT D-Dimer Heparin Anti-Xa Level ABG pH ABG pO2 ABG HCO3 ABG O2 Saturation ABG Base Excess ABG Hemoglobin Oxyhemoglobin Sodium Potassium Chloride Carbon Dioxide BUN Creatinine Glucose POC Glucose 140 H 138 H Hemoglobin A1c Lactic Acid Calcium Phosphorus Magnesium Ferritin AST ALT Alkaline Phosphatase Lactate Dehydrogenase Troponin T C-Reactive Protein Total Protein Albumin LDL Cholesterol Direct Urine Creatinine Urine Total Protein Salicylates Acetaminophen Crossmatch 11/24/21 11/24/21 11/24/21 07:19 11:49 15:54 WBC RBC Hgb Hct MCH RDW Plt Count Lymph % (Auto) [place] % (Auto) Lymph # (Auto) [place] # (Auto) Seg Neutrophils % Seg Neuts % (Manual) Lymphocytes % (Manual) Nucleated RBC % Seg Neutrophils # Seg Neutrophils # Man Monocytes # (Manual) PT INR APTT D-Dimer Heparin Anti-Xa Level ABG pH ABG pO2 ABG HCO3 ABG O2 Saturation ABG Base Excess ABG Hemoglobin Oxyhemoglobin Sodium Potassium 3.2 L Chloride 96.7 L Carbon Dioxide BUN Creatinine Glucose 125 H POC Glucose 118 H 106 H Hemoglobin A1c Lactic Acid Calcium Phosphorus Magnesium Ferritin AST ALT Alkaline Phosphatase Lactate Dehydrogenase Troponin T C-Reactive Protein Total Protein Albumin LDL Cholesterol Direct Urine Creatinine Urine Total Protein Salicylates Acetaminophen Crossmatch 11/25/21 11/25/21 11/25/21 11:49 15:41 20:51 WBC RBC Hgb Hct MCH RDW Plt Count Lymph % (Auto) [place] % (Auto) Lymph # (Auto) [place] # (Auto) Seg Neutrophils % Seg Neuts % (Manual) Lymphocytes % (Manual) Nucleated RBC % Seg Neutrophils # Seg Neutrophils # Man Monocytes # (Manual) PT INR APTT D-Dimer Heparin Anti-Xa Level ABG pH ABG pO2 ABG HCO3 ABG O2 Saturation ABG Base Excess ABG Hemoglobin Oxyhemoglobin Sodium Potassium Chloride Carbon Dioxide BUN Creatinine Glucose POC Glucose 119 H 110 H 109 H Hemoglobin A1c Lactic Acid Calcium Phosphorus Magnesium Ferritin AST ALT Alkaline Phosphatase Lactate Dehydrogenase Troponin T C-Reactive Protein Total Protein Albumin LDL Cholesterol Direct Urine Creatinine Urine Total Protein Salicylates Acetaminophen Crossmatch 11/26/21 11/26/21 11/26/21 07:33 11:20 17:03 WBC RBC Hgb Hct MCH RDW Plt Count Lymph % (Auto) [place] % (Auto) Lymph # (Auto) [place] # (Auto) Seg Neutrophils % Seg Neuts % (Manual) Lymphocytes % (Manual) Nucleated RBC % Seg Neutrophils # Seg Neutrophils # Man Monocytes # (Manual) PT INR APTT D-Dimer Heparin Anti-Xa Level ABG pH ABG pO2 ABG HCO3 ABG O2 Saturation ABG Base Excess ABG Hemoglobin Oxyhemoglobin Sodium Potassium Chloride Carbon Dioxide BUN Creatinine Glucose POC Glucose 158 H 162 H 144 H Hemoglobin A1c Lactic Acid Calcium Phosphorus Magnesium Ferritin AST ALT Alkaline Phosphatase Lactate Dehydrogenase Troponin T C-Reactive Protein Total Protein Albumin LDL Cholesterol Direct Urine Creatinine Urine Total Protein Salicylates Acetaminophen Crossmatch 11/26/21 11/27/21 11/27/21 21:51 07:44 12:20 WBC RBC Hgb Hct MCH RDW Plt Count Lymph % (Auto) [place] % (Auto) Lymph # (Auto) [place] # (Auto) Seg Neutrophils % Seg Neuts % (Manual) Lymphocytes % (Manual) Nucleated RBC % Seg Neutrophils # Seg Neutrophils # Man Monocytes # (Manual) PT INR APTT D-Dimer Heparin Anti-Xa Level ABG pH ABG pO2 ABG HCO3 ABG O2 Saturation ABG Base Excess ABG Hemoglobin Oxyhemoglobin Sodium Potassium Chloride Carbon Dioxide BUN Creatinine Glucose POC Glucose 132 H 129 H 128 H Hemoglobin A1c Lactic Acid Calcium Phosphorus Magnesium Ferritin AST ALT Alkaline Phosphatase Lactate Dehydrogenase Troponin T C-Reactive Protein Total Protein Albumin LDL Cholesterol Direct Urine Creatinine Urine Total Protein Salicylates Acetaminophen Crossmatch 11/27/21 11/27/21 11/28/21 16:44 21:35 07:54 WBC RBC Hgb Hct MCH RDW Plt Count Lymph % (Auto) [place] % (Auto) Lymph # (Auto) [place] # (Auto) Seg Neutrophils % Seg Neuts % (Manual) Lymphocytes % (Manual) Nucleated RBC % Seg Neutrophils # Seg Neutrophils # Man Monocytes # (Manual) PT INR APTT D-Dimer Heparin Anti-Xa Level ABG pH ABG pO2 ABG HCO3 ABG O2 Saturation ABG Base Excess ABG Hemoglobin Oxyhemoglobin Sodium Potassium Chloride Carbon Dioxide BUN Creatinine Glucose POC Glucose 126 H 131 H 124 H Hemoglobin A1c Lactic Acid Calcium Phosphorus Magnesium Ferritin AST ALT Alkaline Phosphatase Lactate Dehydrogenase Troponin T C-Reactive Protein Total Protein Albumin LDL Cholesterol Direct Urine Creatinine Urine Total Protein Salicylates Acetaminophen Crossmatch 11/28/21 11/28/21 11/28/21 11:27 11:56 16:34 WBC 12.3 H RBC 3.18 L Hgb 9.2 L Hct 27.8 L MCH RDW 16.1 H Plt Count Lymph % (Auto) 10.9 L [place] % (Auto) 13.7 H Lymph # (Auto) [place] # (Auto) 1.7 H Seg Neutrophils % 72.2 H Seg Neuts % (Manual) Lymphocytes % (Manual) Nucleated RBC % Seg Neutrophils # 8.9 H Seg Neutrophils # Man Monocytes # (Manual) PT INR APTT D-Dimer Heparin Anti-Xa Level ABG pH ABG pO2 ABG HCO3 ABG O2 Saturation ABG Base Excess ABG Hemoglobin Oxyhemoglobin Sodium Potassium Chloride Carbon Dioxide BUN Creatinine Glucose POC Glucose 131 H 123 H Hemoglobin A1c Lactic Acid Calcium Phosphorus Magnesium Ferritin AST ALT Alkaline Phosphatase Lactate Dehydrogenase Troponin T C-Reactive Protein Total Protein Albumin LDL Cholesterol Direct Urine Creatinine Urine Total Protein Salicylates Acetaminophen Crossmatch 11/28/21 11/28/21 11/29/21 19:35 21:32 07:33 WBC RBC Hgb Hct MCH RDW Plt Count Lymph % (Auto) [place] % (Auto) Lymph # (Auto) [place] # (Auto) Seg Neutrophils % Seg Neuts % (Manual) Lymphocytes % (Manual) Nucleated RBC % Seg Neutrophils # Seg Neutrophils # Man Monocytes # (Manual) PT INR APTT D-Dimer Heparin Anti-Xa Level 0.12 L ABG pH ABG pO2 ABG HCO3 ABG O2 Saturation ABG Base Excess ABG Hemoglobin Oxyhemoglobin Sodium Potassium Chloride Carbon Dioxide BUN Creatinine Glucose POC Glucose 110 H 108 H Hemoglobin A1c Lactic Acid Calcium Phosphorus Magnesium Ferritin AST ALT Alkaline Phosphatase Lactate Dehydrogenase Troponin T C-Reactive Protein Total Protein Albumin LDL Cholesterol Direct Urine Creatinine Urine Total Protein Salicylates Acetaminophen Crossmatch 11/29/21 11/29/21 11/29/21 11:29 13:51 15:25 WBC 13.0 H RBC 3.41 L Hgb 9.5 L Hct 29.9 L MCH RDW 16.2 H Plt Count Lymph % (Auto) 11.1 L [place] % (Auto) 15.5 H Lymph # (Auto) [place] # (Auto) 2.0 H Seg Neutrophils % 71.8 H Seg Neuts % (Manual) Lymphocytes % (Manual) Nucleated RBC % Seg Neutrophils # 9.3 H Seg Neutrophils # Man Monocytes # (Manual) PT INR APTT D-Dimer Heparin Anti-Xa Level ABG pH ABG pO2 ABG HCO3 ABG O2 Saturation ABG Base Excess ABG Hemoglobin Oxyhemoglobin Sodium Potassium Chloride Carbon Dioxide BUN Creatinine Glucose POC Glucose 136 H 123 H Hemoglobin A1c Lactic Acid Calcium Phosphorus Magnesium Ferritin AST ALT Alkaline Phosphatase Lactate Dehydrogenase Troponin T C-Reactive Protein Total Protein Albumin LDL Cholesterol Direct Urine Creatinine Urine Total Protein Salicylates Acetaminophen Crossmatch 11/29/21 11/29/21 11/29/21 18:50 18:50 20:16 WBC RBC Hgb Hct MCH RDW Plt Count Lymph % (Auto) [place] % (Auto) Lymph # (Auto) [place] # (Auto) Seg Neutrophils % Seg Neuts % (Manual) Lymphocytes % (Manual) Nucleated RBC % Seg Neutrophils # Seg Neutrophils # Man Monocytes # (Manual) PT INR APTT D-Dimer Heparin Anti-Xa Level 0.21 L ABG pH ABG pO2 ABG HCO3 ABG O2 Saturation ABG Base Excess ABG Hemoglobin Oxyhemoglobin Sodium 126 L Potassium Chloride 86.3 L Carbon Dioxide BUN 38 H Creatinine 3.6 H Glucose 153 H POC Glucose 166 H Hemoglobin A1c Lactic Acid Calcium Phosphorus Magnesium Ferritin AST ALT Alkaline Phosphatase Lactate Dehydrogenase Troponin T C-Reactive Protein Total Protein Albumin LDL Cholesterol Direct Urine Creatinine Urine Total Protein Salicylates Acetaminophen Crossmatch 11/30/21 11/30/21 11/30/21 05:14 07:35 11:15 WBC RBC Hgb 8.7 L Hct 26.8 L MCH RDW Plt Count Lymph % (Auto) [place] % (Auto) Lymph # (Auto) [place] # (Auto) Seg Neutrophils % Seg Neuts % (Manual) Lymphocytes % (Manual) Nucleated RBC % Seg Neutrophils # Seg Neutrophils # Man Monocytes # (Manual) PT INR APTT D-Dimer Heparin Anti-Xa Level ABG pH ABG pO2 ABG HCO3 ABG O2 Saturation ABG Base Excess ABG Hemoglobin Oxyhemoglobin Sodium Potassium Chloride Carbon Dioxide BUN Creatinine Glucose POC Glucose 114 H 119 H Hemoglobin A1c Lactic Acid Calcium Phosphorus Magnesium Ferritin AST ALT Alkaline Phosphatase Lactate Dehydrogenase Troponin T C-Reactive Protein Total Protein Albumin LDL Cholesterol Direct Urine Creatinine Urine Total Protein Salicylates Acetaminophen Crossmatch Chest x-ray: image reviewed (dependent LLL atelectasis) Allied health notes reviewed: nursing
[2021-11-30] MEDS: hydrALAZINE 25 MG TAB PO SCH ×3 (14:06→21:55)
[2021-11-30] MEDS ORDERED: MAGNESIUM HYDROXIDE (MOM) ORAL LIQD UDC PO ONE (14:14)
--- NOTE | 2021-11-30 14:19 | Progress Note ---
Assessment and Plan Assessment and plan: 66 YO Female with Obesity was attending [facility] when the patient collapsed and lost consciousness. Witnesses began CPR. EMS was notified and upon arrival the patient was found to be in distress without perfusing cardiac rhythm. Patient initiated on ACLS protocol and subsequently intubated in the field and transported to ED. The patient regained spontaneous circulation during transport. She was found to have acute hypoxemic respiratory failure, septic shock suspected secondary to aspiration pneumonia, metabolic acidosis, toxic metabolic encephalopathy, shock liver, and cardiac arrest with return of perfusing cardiac rhythm after initiation of ACLS protocol. Patient initiated on sepsis protocol as well as pneumonia protocol. Patient admitted to ICU. Patient improved, extubated on 11/11 and transferred to floor on 11/19. 66-year-old female with multiple medical issues including spontaneous left retroperitoneal hemorrhage requiring cessation of anticoagulation. Ultimately IVC filter was placed, but patient's DVTs continue to propagate. There are now extensive bilateral lower extremity DVTs. Started low intensity heparin drip. Awaiting CBC. If stable, can transition to standard intensity heparin drip. If tolerates that, then can be transition to Eliquis. s/p cardiac arrest, collapse at [facility], HFrEF, shock/hypotension resolved Atrial fibrillation/atrial flutter -Cardiac arrest and collapse at [facility] with ROSC -Cardiology consulted, appreciate recommendations - S/p Cardizem gtt- d/c due to low EF; now on PO Amio -s/p vasopressor support with levophed -Echocardiogram shows left ventricular systolic function severely decreased, LVEF 25 to 30%, no pericardial effusion -proBNP 5622 -Continue Lasix 20 mg twice daily, BB, spironolactone, losartan -No significant volume overload clinically Acute hypoxic respiratory failure, right pneumothorax, Angioedema (resolved), pulmonary edema -CCM consulted, appreciate recommendations -Intubated on 10/29 and extubated on 11/11 -Bipap q HS and prn, at high risk for KOLBY with morbid obesity -NC during day -s/p right chest tube for pneumothorax -s/p steroids for angioedema -On Lasix for pulmonary edema. Transaminitis likely shocked liver - resolved Acute kidney injury likely secondary to vasomotor nephropathy, hypernatremia -Nephrology consulted, appreciate recommendations -Gregory replaced 11/05 urinary retention -FeNa 0.05 indicating pre-renal -SIERRA and hyponatremia resolved. Creatinine 1.0 on Lasix IV Shock cardiogenicsuspected sepsis -Fever was as high as 102 with a leukocytosis Blood, urine and sputum cultures negative -COVID-19 PCR negative -S/p empiric antibiotic therapy for possible pneumonia with Rocephin and azithromycin () -S/p Levophed gtt for hypotension -Fever and leukocytosis resolved -Monitor WBC and temperature curve Acute Metabolic encephalopathy, agitation/anxiety -Etiology likely from a cardiac arrest, shock and cerebral hypoperfusion CT head no acute focal parenchymal lesion in the brain -Neurology consulted, appreciate recommendations -EEG and MRI noted, Neuro recommend to cut down on sedation as possible Mental status significantly improved, currently fairly alert and oriented. Answers appropriately. Acute DVT bilateral lower extremities; Worsening DVT Status post IVC filter placement On heparin drip, vascular IR following Anemia, retroperitoneal bleed -D-dimer greater than 10,000 -CTA chest with no evidence of PE -Bilateral lower extremity ultrasound positive for DVT -Heparin gtt on hold d/t anemia, received PRBC x4 -vasuclar surgery consulted, appreciate recommendations -recommended multiphasic CT angio of the abdomen and pelvis with and without contrast if H/H drops and did not recommend IVC filter at this time as the DVTs are infrapopliteal and recommends a follow-up DVT study weekly for 2 weeks. Repeat venous duplex ultrasound on 11/21 showed progression of left peroneal DVT extending into popliteal vein. Vascular surgery completed IVC filter placement on 11/22. -Trend CBC -SCDs to BLE while in bed -Transfuse hemoglobin less than 7 -Monitor for signs of bleeding -Hemoglobin stable, 8.6 Hypertension, not able be controlled Increase losartan 200 mg daily and add hydralazine as needed. Hyperglycemia ,resolved) -Avoid hypoglycemia -Hbg A1C 6.7 -SSI and lantus q hs (titrate as needed) -Accu-Cheks q. 6 Morbid obesity High risk for KOLBY On nightly BiPAP Deconditioning PT/OT Hospital course from 11/22/202111/22: The infrapopliteal vein thrombosis has propagated to the left popliteal vein. Vascular surgery to perform IVC filter placement today. 11/23: Vascular surgery placed IVC filter yesterday. Continue metoprolol 100 mg p.o. twice daily, Aldactone 25 mg p.o. daily and losartan 25 mg p.o. daily. Patient still requiring BiPAP (IPAP18, EPAP8) with FiO2 of 30%. Continue to wean oxygen per pulmonary recommendations. Nurse reports patient is having vaginal bleeding. We will check serial CBC and pelvic ultrasound 11/24: I discussed with cardiology yesterday the need for a LifeVest. LifeVest is ordered and pending. Patient is s/p IVC filter placement. Continue metoprolol 100 mg p.o. twice daily, Aldactone 25 mg p.o. daily and losartan 25 mg p.o. daily. Patient still requiring BiPAP (IPAP18, EPAP8) with FiO2 of 30%. Continue to wean oxygen per pulmonary recommendations. No further reports of vaginal bleeding. Pelvic ultrasound negative 11/25: Awaiting for LifeVest. Patient is s/p IVC filter placement. Continue metoprolol 100 mg p.o. twice daily, Aldactone 25 mg p.o. daily and losartan 25 mg p.o. daily. Patient still requiring BiPAP (IPAP18, EPAP8) with FiO2 of 30%. Continue to wean oxygen per pulmonary recommendations. 11/26: Physical therapy recommends subacute rehab. Still awaiting LifeVest. Patient is s/p IVC filter placement. Continue metoprolol 100 mg p.o. twice d aily, Aldactone 25 mg p.o. daily and losartan 25 mg p.o. daily. Patient still requiring BiPAP (IPAP18, EPAP8) with FiO2 of 30% at night. Continue to wean oxygen per pulmonary recommendations. Patient currently with 2 L O2. 11/27: Physical therapy recommends subacute rehab. Patient has a LifeVest. Patient's left lower extremity pain likely related to DVT. Continue pain control. Continue metoprolol 100 mg p.o. twice daily, Aldactone 25 mg p.o. daily and losartan 25 mg p.o. daily. Patient still requiring BiPAP (IPAP18, EPAP8) with FiO2 of 30% at night. 11/28: Physical therapy recommends subacute rehab. Patient has a LifeVest. Patient continues to complain of left lower extremity pain which makes it very difficult for ambulation. Continue Percocet for pain control. Add neurontin for possible neuropathy. Etiology is likely secondary to DVT. Continue metoprolol 100 mg p.o. twice daily, Aldactone 25 mg p.o. daily and losartan 25 mg p.o. daily. Patient still requiring BiPAP (IPAP18, EPAP8) with FiO2 of 30% at night. Repeated Doppler US of LLE and will ask vascular surgery to revisit. 11/29; worsening lower extremity DVTs, vascular following, on heparin drip 11/30; low-grade fever, leukocytosis, shortness of breath, chest x-ray possible left-sided pneumonia/possible healthcare associated pneumonia Blood cultures already sent, empiric antibiotic cefepime[renal dose confirmed with pharmacist] ID consult if needed Hospitalist Physical - Constitutional Vitals: Temp Pulse Resp BP Pulse Ox 100.0 F H 94 H 18 89/58 97 11/30/21 11:16 11/30/21 11:16 11/30/21 07:36 11/30/21 11:16 11/30/21 11:16 General appearance: Present: no acute distress, well-nourished, obese (Morbidly obese) - EENT Eyes: Present: PERRL, EOM intact - Neck Neck: Present: supple, normal ROM - Respiratory Respiratory effort: normal Respiratory: bilateral: diminished, negative: rales, rhonchi, wheezing - Cardiovascular Rhythm: regular Heart Sounds: Present: S1 & S2 - Extremities Extremities: abnormal (Worsening swelling bilateral lower extremities/worsening bilateral lower extremity DVTs) Extremity abnormal: edema - Abdominal General gastrointestinal: soft, non-tender, non-distended, normal bowel sounds - Integumentary Integumentary: Present: clear, warm - Psychiatric Psychiatric: appropriate mood/affect, cooperative - Neurologic Neurologic: moves all extremities HEART Score - HEART Score Troponin: Troponin T 1.150 ng/mL (0.00-0.029) H* D 10/29/21 22:34 Results - Labs CBC & Chem 7: 11/30/21 05:14 11/30/21 15:26 Labs: Laboratory Last Values WBC 13.0 K/mm3 (4.5-11.0) H 11/29/21 13:51 RBC 3.41 M/mm3 (3.65-5.03) L 11/29/21 13:51 Hgb 8.7 gm/dl (10.1-14.3) L 11/30/21 05:14 Hct 26.8 % (30.3-42.9) L 11/30/21 05:14 MCV 88 fl (79-97) 11/29/21 13:51 MCH 28 pg (28-32) 11/29/21 13:51 MCHC 32 % (30-34) 11/29/21 13:51 RDW 16.2 % (13.2-15.2) H 11/29/21 13:51 Plt Count 227 K/mm3 (140-440) 11/29/21 13:51 Lymph % (Auto) 11.1 % (13.4-35.0) L 11/29/21 13:51 [place] % (Auto) 15.5 % (0.0-7.3) H 11/29/21 13:51 Eos % (Auto) 1.0 % (0.0-4.3) 11/29/21 13:51 Baso % (Auto) 0.6 % (0.0-1.8) 11/29/21 13:51 Lymph # (Auto) 1.4 K/mm3 (1.2-5.4) 11/29/21 13:51 [place] # (Auto) 2.0 K/mm3 (0.0-0.8) H 11/29/21 13:51 Eos # (Auto) 0.1 K/mm3 (0.0-0.4) 11/29/21 13:51 Baso # (Auto) 0.1 K/mm3 (0.0-0.1) 11/29/21 13:51 Add Manual Diff Complete 11/07/21 06:30 Total Counted 100 11/07/21 06:30 Seg Neutrophils % 71.8 % (40.0-70.0) H 11/29/21 13:51 Seg Neuts % (Manual) 77.0 % (40.0-70.0) H 11/07/21 06:30 Band Neutrophils % 1.0 % 11/07/21 06:30 Lymphocytes % (Manual) 11.0 % (13.4-35.0) L 11/07/21 06:30 Reactive Lymphs % (Man) 3.0 % 11/07/21 06:30 Monocytes % (Manual) 2.0 % (0.0-7.3) 11/07/21 06:30 Eosinophils % (Manual) 0 % (0.0-4.3) 11/07/21 06:30 Basophils % (Manual) 0 % (0.0-1.8) 11/07/21 06:30 Metamyelocytes % 1.0 % 11/07/21 06:30 Myelocytes % 5.0 % 11/07/21 06:30 Promyelocytes % 0 % 11/07/21 06:30 Blast Cells % 0 % 11/07/21 06:30 Nucleated RBC % 2.0 % (0.0-0.9) H 11/07/21 06:30 Seg Neutrophils # 9.3 K/mm3 (1.8-7.7) H 11/29/21 13:51 Seg Neutrophils # Man 12.3 K/mm3 (1.8-7.7) H 11/07/21 06:30 Band Neutrophils # 0.2 K/mm3 11/07/21 06:30 Lymphocytes # (Manual) 1.8 K/mm3 (1.2-5.4) 11/07/21 06:30 Abs React Lymphs (Man) 0.5 K/mm3 11/07/21 06:30 Monocytes # (Manual) 0.3 K/mm3 (0.0-0.8) 11/07/21 06:30 Eosinophils # (Manual) 0.0 K/mm3 (0.0-0.4) 11/07/21 06:30 Basophils # (Manual) 0.0 K/mm3 (0.0-0.1) 11/07/21 06:30 Metamyelocytes # 0.2 K/mm3 11/07/21 06:30 Myelocytes # 0.8 K/mm3 11/07/21 06:30 Promyelocytes # 0.0 K/mm3 11/07/21 06:30 Blast Cells # 0.0 K/mm3 11/07/21 06:30 WBC Morphology Not Reportable 11/07/21 06:30 Hypersegmented Neuts Not Reportable 11/07/21 06:30 Hyposegmented Neuts Not Reportable 11/07/21 06:30 Hypogranular Neuts Not Reportable 11/07/21 06:30 Smudge Cells Not Reportable 11/07/21 06:30 Toxic Granulation Not Reportable 11/07/21 06:30 Toxic Vacuolation Not Reportable 11/07/21 06:30 Dohle Bodies Not Reportable 11/07/21 06:30 Pelger-Huet Anomaly Not Reportable 11/07/21 06:30 Manny Rods Not Reportable 11/07/21 06:30 Platelet Estimate Consistent w auto 11/07/21 06:30 Clumped Platelets Not Reportable 11/07/21 06:30 Plt Clumps, EDTA Not Reportable 11/07/21 06:30 Large Platelets 1+ 11/07/21 06:30 Giant Platelets Not Reportable 11/07/21 06:30 Platelet Satelliting Not Reportable 11/07/21 06:30 Plt Morphology Comment Not Reportable 11/07/21 06:30 RBC Morphology Not Reportable 11/07/21 06:30 Dimorphic RBCs Not Reportable 11/07/21 06:30 Polychromasia Not Reportable 11/07/21 06:30 Hypochromasia 1+ 11/07/21 06:30 Poikilocytosis Not Reportable 11/07/21 06:30 Anisocytosis Not Reportable 11/07/21 06:30 Microcytosis Not Reportable 11/07/21 06:30 Macrocytosis Not Reportable 11/07/21 06:30 Spherocytes 1+ 11/07/21 06:30 Pappenheimer Bodies Not Reportable 11/07/21 06:30 Sickle Cells Not Reportable 11/07/21 06:30 Target Cells 1+ 11/07/21 06:30 Tear Drop Cells Not Reportable 11/07/21 06:30 Ovalocytes Not Reportable 11/07/21 06:30 Helmet Cells Not Reportable 11/07/21 06:30 [place] Bodies Not Reportable 11/07/21 06:30 [place] Rings Not Reportable 11/07/21 06:30 [place] Cells Not Reportable 11/07/21 06:30 Bite Cells Not Reportable 11/07/21 06:30 Crenated Cell Not Reportable 11/07/21 06:30 Elliptocytes Not Reportable 11/07/21 06:30 Acanthocytes (Spur) Not Reportable 11/07/21 06:30 Rouleaux Not Reportable 11/07/21 06:30 Hemoglobin C Crystals Not Reportable 11/07/21 06:30 Schistocytes Not Reportable 11/07/21 06:30 Malaria parasites Not Reportable 11/07/21 06:30 Magdy Bodies Not Reportable 11/07/21 06:30 Hem Pathologist Commnt No 11/07/21 06:30 PT 17.2 Sec. (12.2-14.9) H 10/30/21 16:30 INR 1.27 (0.87-1.13) H 10/30/21 16:30 APTT 44.4 Sec. (24.2-36.6) H 10/30/21 16:30 D-Dimer > 95050 ng/mlDDU (0-234) H 10/30/21 Unknown Heparin Anti-Xa Level 0.21 U.I./ml (0.3-0.7) L 11/29/21 18:50 ABG pH 7.475 pH Units (7.350-7.450) H 11/11/21 13:53 ABG pCO2 45.0 mm Hg 11/11/21 13:53 ABG pO2 64.1 mm Hg (80.0-90.0) L 11/11/21 13:53 ABG HCO3 32.4 mmol/L (20.0-26.0) H 11/11/21 13:53 ABG O2 Saturation 96.3 % (95.0-99.0) 11/11/21 13:53 ABG O2 Content 10.1 (0.0-44) 11/11/21 13:53 ABG Base Excess 8.0 mmol/L (-2.0-3.0) H 11/11/21 13:53 ABG Hemoglobin 7.6 gm/dl (12.0-16.0) L 11/11/21 13:53 ABG Carboxyhemoglobin 1.8 % (0.0-5.0) 11/11/21 13:53 ABG Methemoglobin 0.5 % (0.0-1.5) 11/11/21 13:53 Oxyhemoglobin 94.0 % (95.0-99.0) L 11/11/21 13:53 FiO2 32 % 11/11/21 13:53 Sodium 126 mmol/L (137-145) L 11/29/21 18:50 Potassium 4.5 mmol/L (3.6-5.0) 11/29/21 18:50 Chloride 86.3 mmol/L (98-107) L 11/29/21 18:50 Carbon Dioxide 23 mmol/L (22-30) 11/29/21 18:50 Anion Gap 21 mmol/L 11/29/21 18:50 BUN 38 mg/dL (7-17) H 11/29/21 18:50 Creatinine 3.6 mg/dL (0.6-1.2) H 11/29/21 18:50 Estimated GFR 15 ml/min 11/29/21 18:50 BUN/Creatinine Ratio 11 % 11/29/21 18:50 Glucose 153 mg/dL (65-100) H 11/29/21 18:50 POC Glucose 119 mg/dL (70-105) H 11/30/21 11:15 Hemoglobin A1c 6.7 % (4-6) H 10/31/21 04:30 Lactic Acid 0.70 mmol/L (0.7-2.0) 10/31/21 15:45 Calcium 8.6 mg/dL (8.4-10.2) 11/29/21 18:50 Phosphorus 3.10 mg/dL (2.5-4.5) 11/19/21 14:38 Magnesium 1.60 mg/dL (1.7-2.3) L 11/19/21 14:38 Ferritin 208.4 ng/mL (10.0-200.0) H 10/30/21 Unknown Total Bilirubin < 0.20 mg/dL (0.1-1.2) 11/06/21 02:35 AST 21 units/L (5-40) 11/06/21 02:35 ALT 77 units/L (7-56) H 11/06/21 02:35 Alkaline Phosphatase 84 units/L (35-129) 11/06/21 02:35 Ammonia 31.0 umol/L (25-60) 10/29/21 15:10 Lactate Dehydrogenase 469 units/L (91-180) H 10/30/21 Unknown Troponin T 1.150 ng/mL (0.00-0.029) H* D 10/29/21 22:34 C-Reactive Protein 13.40 mg/dL (0.00-1.30) H 10/30/21 Unknown Total Protein 6.3 g/dL (6.3-8.2) 11/06/21 02:35 Albumin 3.0 g/dL (3.9-5) L 11/06/21 02:35 Albumin/Globulin Ratio 0.9 % 11/06/21 02:35 Triglycerides 68 mg/dL (2-149) 10/29/21 19:40 Cholesterol 98 mg/dL (50-199) 10/29/21 19:40 LDL Cholesterol Direct 43 mg/dL (50-130) L 10/29/21 19:40 HDL Cholesterol 50 mg/dL (40-59) 10/29/21 19:40 Cholesterol/HDL Ratio 1.96 % 10/29/21 19:40 Procalcitonin 61.95 ng/mL (<0.15) 10/30/21 Unknown TSH 3.080 mlU/mL (0.270-4.200) 10/29/21 15:10 Urine Color Yellow (Yellow) 11/13/21 08:30 Urine Turbidity Slightly-cloudy (Clear) 11/13/21 08:30 Urine pH 6.0 (5.0-7.0) 11/13/21 08:30 Ur Specific [place] 1.010 (1.003-1.030) 11/13/21 08:30 Urine Protein <15 mg/dl mg/dL (Negative) 11/13/21 08:30 Urine Glucose (UA) Neg mg/dL (Negative) 11/13/21 08:30 Urine Ketones Tr mg/dL (Negative) 11/13/21 08:30 Urine Blood Sm (Negative) 11/13/21 08:30 Urine Nitrite Neg (Negative) 11/13/21 08:30 Urine Bilirubin Neg (Negative) 11/13/21 08:30 Urine Urobilinogen < 2.0 mg/dL (<2.0) 11/13/21 08:30 Ur Leukocyte Esterase Neg (Negative) 11/13/21 08:30 Urine WBC (Auto) < 1.0 /HPF (0.0-6.0) 11/13/21 08:30 Urine RBC (Auto) < 1.0 /HPF (0.0-6.0) 11/13/21 08:30 U Epithel Cells (Auto) < 1.0 /HPF (0-13.0) 11/13/21 08:30 Urine Mucus Few /HPF 10/29/21 18:15 Urine Eosinophils None seen (None Seen) 11/04/21 Unknown Urine Creatinine 190.9 mg/dL (0.1-20.0) H 11/04/21 Unknown Protein/Creatinin Ratio 0.90 11/04/21 Unknown Urine Sodium 10 mmol/L 11/04/21 Unknown Urine Total Protein 172 mg/dL (5-11.8) H 11/04/21 Unknown Salicylates < 0.3 mg/dL (2.8-20.0) L 10/29/21 15:10 Urine Opiates Screen Negative 10/29/21 18:15 Urine Methadone Screen Negative 10/29/21 18:15 Acetaminophen 5.0 ug/mL (10.0-30.0) L 10/29/21 15:10 Ur Barbiturates Screen Negative 10/29/21 18:15 Ur Phencyclidine Scrn Negative 10/29/21 18:15 Ur Amphetamines Screen Negative 10/29/21 18:15 U Benzodiazepines Scrn Negative 10/29/21 18:15 Urine Cocaine Screen Negative 10/29/21 18:15 U Marijuana (THC) Screen Negative 10/29/21 18:15 Drugs of Abuse Note Disclamer 10/29/21 18:15 Plasma/Serum Alcohol < 0.01 % (0-0.07) 10/29/21 15:10 Coronavirus (PCR) Negative (Negative) 10/30/21 Unknown Blood Type O POSITIVE 11/12/21 04:15 Antibody Screen Negative 11/12/21 04:15 Crossmatch See Detail 11/12/21 04:15 Microbiology: Microbiology 11/29/21 22:26 Peripheral/Venous Blood Culture - Preliminary Culture in Progress 11/29/21 22:26 Peripheral/Venous Blood Culture - Preliminary Culture in Progress Gregory/IV: Voiding Method External Female Catheter Active Medications - Current Medications Current Medications: Generic Name Dose Route Start Last Admin Trade Name Freq PRN Reason Stop Dose Admin Acetaminophen 650 mg 10/29/21 17:04 11/12/21 22:53 Acetaminophen 650 Mg Rect Supp HI 650 mg Q6H PRN Administration Pain MILD(1-3)/Fever >100.5/NIEVES Acetaminophen 650 mg 11/19/21 16:35 11/29/21 21:19 Acetaminophen 325 Mg Tab PO 650 mg Q6HR PRN Administration PAIN Alprazolam 0.25 mg 11/14/21 14:29 11/27/21 11:24 Alprazolam 0.25 Mg Tab PO 0.25 mg Q8H PRN Administration Anxiety Dextrose 0 ml 11/04/21 13:48 11/12/21 05:45 Dextrose 10% *Hypoglycemia IV 50 ml PRN PRN Administration Hypoglycemia Docusate Sodium 100 mg 11/18/21 15:00 11/30/21 09:53 Docusate Sodium 100 Mg Cap PO 100 mg BID RAMON Administration Famotidine 10 mg 11/06/21 10:00 11/30/21 09:53 Famotidine 10 Mg Tab PO 10 mg BID RAMON Administration Gabapentin 100 mg 11/28/21 14:00 11/30/21 05:34 Gabapentin 100 Mg Cap PO 100 mg Q8HR RAMON Administration Hydralazine HCl 50 mg 11/22/21 22:00 11/29/21 22:29 Hydralazine 25 Mg Tab PO Not Given Q8HR [facility] Hydrophilic Ointment 1 applic 10/29/21 14:29 11/09/21 08:51 Lip Therapy Vaseline TP 1 applic Q2HR PRN Administration Dry Lips Heparin Sodium/Sodium Chloride 25,000 unit in 500 mls @ 30 mls/hr 11/28/21 17:00 11/30/21 05:53 Heparin/ 0.45% Nacl-25,000 Unit/500 Ml IV 1,300 units/hr TITR RAMON 26 mls/hr Administration Protocol 1,500 UNITS/HR Insulin Human Lispro 0 unit 11/25/21 22:00 11/30/21 13:54 Insulin Lispro 100 Unit/Ml SUB-Q Not Given ACHS [facility] Protocol Ketorolac Tromethamine 15 mg 11/29/21 14:57 11/29/21 18:21 Ketorolac 30 Mg/1 Ml Inj IV 12/04/21 14:59 15 mg Q8H PRN Administration Pain, Moderate (4-6) Lactulose 20 gm 11/18/21 14:43 11/29/21 21:20 Lactulose 20 Gm/30 Ml Oral Liqd PO 20 gm Q6H PRN Administration Constipation Losartan Potassium 50 mg 11/20/21 11:00 11/30/21 09:54 Losartan 25 Mg Tab PO Not Given BID RAMON Melatonin 10 mg 11/22/21 17:31 11/27/21 21:32 Melatonin 5 Mg Tab PO 10 mg QHS PRN Administration Sleep Metoprolol Tartrate 100 mg 11/16/21 22:00 11/30/21 09:53 Metoprolol Tartrate 100 Mg Tab PO 100 mg BID RAMON Administration Morphine Sulfate 1 mg 11/28/21 15:00 11/29/21 07:58 Morphine 2 Mg/1 Ml Inj IV 1 mg Q4H PRN Administration Pain, Moderate (4-6) Multi-Ingred Cream/Lotion/Oil/Oint 1 applic 10/29/21 14:29 11/06/21 09:25 Mineral Oil/Petrolatum, White Ophth Oint 3.5 Gm OU 1 applic Q4HR PRN Administration Dry Eye(s) Oxycodone/Acetaminophen 1 tab 11/27/21 14:31 11/29/21 22:25 Oxycodone /Acetaminophen 5-325mg Tab PO 1 tab Q4H PRN Administration Pain, Moderate (4-6) Polyethylene Glycol 17 gm 11/20/21 12:47 11/25/21 08:30 Polyethylene Glycol 3350 17 Gm Powder PO 17 gm QDAY PRN Administration Constipation Senna/Docusate Sodium 1 tab 11/16/21 22:00 11/30/21 09:53 Sennosides/Docusate Sodium 8.6/50 Mg Tab PO 1 tab BID RAMON Administration Sodium Chloride 10 ml 10/29/21 22:00 11/30/21 10:05 Sodium Chloride 0.9% 10 Ml Flush Syringe IV 10 ml BID RAMON Administration Sodium Chloride 10 ml 10/29/21 17:04 Sodium Chloride 0.9% 10 Ml Flush Syringe IV PRN PRN LINE FLUSH Spironolactone 25 mg 11/10/21 10:00 11/30/21 10:05 Spironolactone 25 Mg Tab PO 25 mg QDAY RAMON Administration Nutrition/Malnutrition Assess - Dietary Evaluation Nutrition/Malnutrition Findings: Nutrition Notes Start: 10/30/21 09: 50 Freq: Status: Active Protocol: Document 11/25/21 19:04 MEENU (Rec: 11/25/21 19:16 MEENU [email or web address]) Nutrition Notes Initial or Follow up Reassessment Current Diagnosis Sepsis,Hypertension, Respiratory Failure Other Pertinent Diagnosis s/p Cardiac Arrest, DVT, Anemia, Pneumonia, Pneumothorax, P Edema, HFrEF.. . Current Diet Mechanical Soft Diet (since B 11/22). Labs/Tests 11/24: K 3.2, Cl 96.7, Glu 125 . Pertinent Medications 11/25: Nutritionally unremarkable. Height 5 ft 10 in Weight 109.5 kg [place] Body Weight (kg) 68.18 BMI 34.6 Weight change and time frame 2.5 Kg body weight loss in 1 week reported. Weight Status Obese Subjective/Other Information RD consulr for routine F/U on Diet tolerance/advancement. Diet has advanced to Mechanical Soft. Pt's PO intake of meals has been Fair (50-75%), according to ADL notes. Percent of energy/protein needs met: Prescribed Mechanical Soft Diet provides for energy/ protein needs (2,048 Kcal/97 g ) during LOS. Burn Absent Trauma Absent GI Symptoms None Food Allergy No Skin Integrity/Comment Assessment WNL. Current % PO Fair (50-74%) Minimum of two criteria No #1 Nutrition Diagnosis Inadequate oral intake Comments: Pt's PO intake of meals has been Fair (50-75%), according to ADL notes. Diet advanced to Mechanical Soft. Diagnosis Progress(for reassessment Improved documentation) Is patient on ventilator? No Is Patient Ambulatory and/or Out of Bed No REE-([place]-confined to bed) 2056.424 Kcal/Kg value to use for calculation 15 Approximate Energy Requirements Using 1643 kcal/Kg Calculation Used for Recommendations Kcal/kg Additional Notes Protein: 0.8-1.2 g/Kg IBW; 70- 105 g/day. Fluids: 1 ml/Kcal, or as per MD. Nutrition Intervention Change Diet Order: Continue Mechanical Soft Diet. Goal #1 Maintain body weight within +/ -3% of admission body weight during LOS. Goal #2 Facilitate PO intake of meals with mechanical modification during LOS. Follow-Up By: 12/02/21 Additional Comments Continue monitoring food tolerance, %PO intake of meals , and BM.
[2021-11-30] MEDS: ACETAMINOPHEN 325 MG TAB PO PRN (16:01)
--- NOTE | 2021-11-30 17:07 | XRay Report ---
CHEST 1 VIEW 11/30/2021 4:40 PM INDICATION / CLINICAL INFORMATION: Fever/shortness of breath. COMPARISON: 11/27/2021 FINDINGS: SUPPORT DEVICES: None. HEART / MEDIASTINUM: Low lung volumes. Mild increased pulmonary vascularity. Left lower lung density could represent atelectasis/infiltrate with small effusion. Signer Name: Michael Flaherty MD Signed: 11/30/2021 5:02 PM Workstation Name: [employer]
--- NOTE | 2021-11-30 19:13 | Progress Note ---
Assessment and Plan Assessment: Acute Renal Failure secondary to Ischemic ATN secondary to Sepsis, Cardiac arrest and Hypotension S/P Cardiac Arrest Acute Hypoxemic Respiratory Failure Acute DVT Sepsis CHF Anemia Hyperkalemia Hyponatremia Plan: Renal labs reviewed. Serum creatinine 4.0 today, yesterday's was 3.6 non- oliguric ARF likely secondary to Ischemic ATN No IVF as LVEF 25-30 % Stop Losartan Stop Toradol CXR shows congestion On Spironolactone Anemia-transfuse as needed Obtain daily weights Strict I/O's daily Renally dose medications Avoid nephrotoxic agents Continue to monitor renal function, if continue to worsen may need [employer] Plan of care reviewed by Dr. Giordano Subjective Date of service: 11/30/21 Principal diagnosis: AHRF; Cardiac arrest; R. pneumothorax; pneumonia; AMS; DVT's; SIERRA; Obesity Interval history: Patient off floor. We last saw patient on 11/17/21, at that time patient's renal function returned to normal and we signed off. We are being asked to see patient again due to severe renal failure. Objective - Vital Signs Vital signs: Vital Signs - 12hr 11/30/21 11/30/21 11/30/21 07:36 09:53 10:00 Temperature 98.3 F Pulse Rate 101 H Respiratory 18 Rate Blood Pressure 117/54 117/54 O2 Sat by Pulse 94 88 Oximetry 11/30/21 11/30/21 11/30/21 11:16 14:06 16:32 Temperature 100.0 F H 99.8 F H Pulse Rate 94 H 96 H 71 Respiratory Rate Blood Pressure 89/58 O2 Sat by Pulse 97 93 Oximetry - Lab 11/30/21 05:14 11/30/21 15:26 Most recent lab results ABG pH 7.475 pH Units (7.350-7.450) H 11/11/21 13:53 ABG pCO2 45.0 mm Hg 11/11/21 13:53 ABG pO2 64.1 mm Hg (80.0-90.0) L 11/11/21 13:53 ABG HCO3 32.4 mmol/L (20.0-26.0) H 11/11/21 13:53 ABG O2 Saturation 96.3 % (95.0-99.0) 11/11/21 13:53 Calcium 8.0 mg/dL (8.4-10.2) L 11/30/21 15:26 Phosphorus 3.10 mg/dL (2.5-4.5) 11/19/21 14:38 Magnesium 1.60 mg/dL (1.7-2.3) L 11/19/21 14:38 Urine Creatinine 190.9 mg/dL (0.1-20.0) H 11/04/21 Unknown Urine Sodium 10 mmol/L 11/04/21 Unknown Urine Total Protein 172 mg/dL (5-11.8) H 11/04/21 Unknown Medications & Allergies - Medications Allergies/Adverse Reactions: Allergies No Known Allergies Allergy (Verified 10/29/21 14:01) Home Medications: Home Medications Medication Instructions Recorded Confirmed Last Taken Type Unobtainable 11/10/21 11/10/21 Unknown History Active Medications: Generic Name Dose Route Start Last Admin Trade Name Freq PRN Reason Stop Dose Admin Acetaminophen 650 mg 10/29/21 17:04 11/12/21 22:53 Acetaminophen 650 Mg Rect Supp NM 650 mg Q6H PRN Administration Pain MILD(1-3)/Fever >100.5/NIEVES Acetaminophen 650 mg 11/19/21 16:35 11/30/21 16:01 Acetaminophen 325 Mg Tab PO 650 mg Q6HR PRN Administration PAIN Alprazolam 0.25 mg 11/14/21 14:29 11/27/21 11:24 Alprazolam 0.25 Mg Tab PO 0.25 mg Q8H PRN Administration Anxiety Dextrose 0 ml 11/04/21 13:48 11/12/21 05:45 Dextrose 10% *Hypoglycemia IV 50 ml PRN PRN Administration Hypoglycemia Docusate Sodium 100 mg 11/18/21 15:00 11/30/21 09:53 Docusate Sodium 100 Mg Cap PO 100 mg BID RAMON Administration Famotidine 10 mg 11/06/21 10:00 11/30/21 09:53 Famotidine 10 Mg Tab PO 10 mg BID RAMON Administration Gabapentin 100 mg 11/28/21 14:00 11/30/21 16:11 Gabapentin 100 Mg Cap PO 100 mg Q8HR RAMON Administration Hydralazine HCl 50 mg 11/22/21 22:00 11/30/21 14:06 Hydralazine 25 Mg Tab PO Not Given Q8HR RAMON Hydrophilic Ointment 1 applic 10/29/21 14:29 11/09/21 08:51 Lip Therapy Vaseline TP 1 applic Q2HR PRN Administration Dry Lips Heparin Sodium/Sodium Chloride 25,000 unit in 500 mls @ 30 mls/hr 11/28/21 17:00 11/30/21 05:53 Heparin/ 0.45% Nacl-25,000 Unit/500 Ml IV 1,300 units/hr TITR RAMON 26 mls/hr Administration Protocol 1,500 UNITS/HR Insulin Human Lispro 0 unit 11/25/21 22:00 11/30/21 13:54 Insulin Lispro 100 Unit/Ml SUB-Q Not Given ACHS [facility] Protocol Ketorolac Tromethamine 15 mg 11/29/21 14:57 11/29/21 18:21 Ketorolac 30 Mg/1 Ml Inj IV 12/04/21 14:59 15 mg Q8H PRN Administration Pain, Moderate (4-6) Lactulose 20 gm 11/18/21 14:43 11/29/21 21:20 Lactulose 20 Gm/30 Ml Oral Liqd PO 20 gm Q6H PRN Administration Constipation Losartan Potassium 50 mg 11/20/21 11:00 11/30/21 09:54 Losartan 25 Mg Tab PO Not Given BID RAMON Melatonin 10 mg 11/22/21 17:31 11/27/21 21:32 Melatonin 5 Mg Tab PO 10 mg QHS PRN Administration Sleep Metoprolol Tartrate 100 mg 11/16/21 22:00 11/30/21 09:53 Metoprolol Tartrate 100 Mg Tab PO 100 mg BID [facility] Administration Morphine Sulfate 1 mg 11/28/21 15:00 11/29/21 07:58 Morphine 2 Mg/1 Ml Inj IV 1 mg Q4H PRN Administration Pain, Moderate (4-6) Multi-Ingred Cream/Lotion/Oil/Oint 1 applic 10/29/21 14:29 11/06/21 09:25 Mineral Oil/Petrolatum, White Ophth Oint 3.5 Gm OU 1 applic Q4HR PRN Administration Dry Eye(s) Oxycodone/Acetaminophen 1 tab 11/27/21 14:31 11/29/21 22:25 Oxycodone /Acetaminophen 5-325mg Tab PO 1 tab Q4H PRN Administration Pain, Moderate (4-6) Polyethylene Glycol 17 gm 11/20/21 12:47 11/25/21 08:30 Polyethylene Glycol 3350 17 Gm Powder PO 17 gm QDAY PRN Administration Constipation Senna/Docusate Sodium 1 tab 11/16/21 22:00 11/30/21 09:53 Sennosides/Docusate Sodium 8.6/50 Mg Tab PO 1 tab BID RAMON Administration Sodium Chloride 10 ml 10/29/21 22:00 11/30/21 10:05 Sodium Chloride 0.9% 10 Ml Flush Syringe IV 10 ml BID RAMON Administration Sodium Chloride 10 ml 10/29/21 17:04 Sodium Chloride 0.9% 10 Ml Flush Syringe IV PRN PRN LINE FLUSH Spironolactone 25 mg 11/10/21 10:00 11/30/21 10:05 Spironolactone 25 Mg Tab PO 25 mg QDAY RAMON Administration
[2021-11-30] MEDS ORDERED: CEFEPIME 0.5 GM in SODIUM CHLORIDE 0.9% 100 ML IV SCH (20:30)
--- NOTE | 2021-11-30 21:01 | Event Note ---
Date: 11/30/21 I discussed in detail with the patient's daughter at the bedside, patient's condition, tests and reports, consultants recommendations And treatment plan, prognosis and social issues, she had numerous questions, answered all of them, she verbalized understanding
[2021-12-01] MEDS: HEPARIN/ 0.45% NACL DRIP 25,000 UNIT/500 ML BAG IV SCH (01:48)
[2021-12-01] MEDS: hydrALAZINE 25 MG TAB PO SCH ×3 (06:01→21:31)
[2021-12-01] MEDS: GABAPENTIN 100 MG CAP PO SCH ×2 (06:01→15:08)
[2021-12-01] MEDS ORDERED: HEPARIN 10,000 UNITS/10 ML VIAL IV PRN (07:50)
--- NOTE | 2021-12-01 09:37 | Progress Note ---
Assessment and Plan Assessment and plan: 66 YO Female with Obesity was attending [facility] services when the patient collapsed and lost consciousness. Witnesses began CPR. EMS was notified and upon arrival the patient was found to be in distress without perfusing cardiac rhythm. Patient initiated on ACLS protocol and subsequently intubated in the field and transported to ED. The patient regained spontaneous circulation during transport. She was found to have acute hypoxemic respiratory failure, septic shock suspected secondary to aspiration pneumonia, metabolic acidosis, toxic metabolic encephalopathy, shock liver, and cardiac arrest with return of perfusing cardiac rhythm after initiation of ACLS protocol. Patient initiated on sepsis protocol as well as pneumonia protocol. Patient admitted to ICU. Patient improved, extubated on 11/11 and transferred to floor on 11/19. 66-year-old female with multiple medical issues including spontaneous left retroperitoneal hemorrhage requiring cessation of anticoagulation. Ultimately IVC filter was placed, but patient's DVTs continue to propagate. There are now extensive bilateral lower extremity DVTs. Started low intensity heparin drip. Awaiting CBC. If stable, can transition to standard intensity heparin drip. If tolerates that, then can be transition to Eliquis. Severe anemia : Received total 4 units of PRBC Hb today 8.5, monitor H&H transfuse additional PRBC as needed Anemia, retroperitoneal bleed -D-dimer greater than 10,000 -CTA chest with no evidence of PE -Bilateral lower extremity ultrasound positive for DVT s/p IVC filter Worsening lower extremity DVT -vasuclar surgery consulted, appreciate recommendations Acute DVT bilateral lower extremities; Worsening DVT, Status post IVC filter placement 11/22 On heparin drip, vascular IR following Transition to Eliquis when patient is more stable Repeat venous duplex ultrasound on 11/21 showed progression of left peroneal DVT extending into popliteal vein. Acute kidney injury/worsening renal function likely secondary to ATN -Nephrology reconsulted, patient has oliguria, creatinine today 4.9 Nephrology initiated hemodialysis, vascular consulted for Vas-Cath placement Followed by dialysis --Fever/lung infiltrate/leukocytosis/sepsis Possible healthcare associated pneumonia Continue cefepime, consult ID --Gram-positive bacteremia; IV Vanco 1 dose, repeat cultures Consult ID s/p cardiac arrest, collapse at [facility], HFrEF, shock/hypotension resolved Atrial fibrillation/atrial flutter -Cardiac arrest and collapse at [facility] with ROSC - S/p Cardizem gtt- d/c due to low EF; now on PO Amio -s/p vasopressor support with levophed -Echocardiogram LVEF 25 to 30%, no pericardial effusion -Continue Lasix 20 mg twice daily, BB, spironolactone, losartan Acute hypoxic respiratory failure, right pneumothorax, Angioedema (resolved), pulmonary edema -Intubated on 10/29 and extubated on 11/11 Pulmonary critical evaluated the patient, managed in ICU later transferred to telemetry -Bipap q HS and prn, at high risk for KOLYB with morbid obesity -s/p right chest tube for pneumothorax -s/p steroids for angioedema -On Lasix for pulmonary edema. Transaminitis likely shocked liver - resolved Shock cardiogenicsuspected sepsis -Fever was as high as 102 with a leukocytosis Blood, urine and sputum cultures negative -COVID-19 PCR negative -S/p empiric antibiotic therapy for possible pneumonia with Rocephin and azithromycin () -S/p Levophed gtt for hypotension -Fever and leukocytosis resolved -Monitor WBC and temperature curve Acute Metabolic encephalopathy, agitation/anxiety -Etiology likely from a cardiac arrest, shock and cerebral hypoperfusion CT head no acute focal parenchymal lesion in the brain -Neurology consulted, appreciate recommendations -EEG and MRI noted, Neuro recommend to cut down on sedation as possible Mental status significantly improved, currently fairly alert and oriented. Answers appropriately. Hypertension, not able be controlled Increase losartan 200 mg daily and add hydralazine as needed. Hyperglycemia ,resolved) -Avoid hypoglycemia -Hbg A1C 6.7 -SSI and lantus q hs (titrate as needed) -Accu-Cheks q. 6 Morbid obesity High risk for KOLBY On nightly BiPAP Deconditioning PT/OT Hospital course from 11/22/202111/22: The infrapopliteal vein thrombosis has propagated to the left popliteal vein. Vascular surgery to perform IVC filter placement today. 11/23: Vascular surgery placed IVC filter yesterday. Continue metoprolol 100 mg p.o. twice daily, Aldactone 25 mg p.o. daily and losartan 25 mg p.o. daily. Patient still requiring BiPAP (IPAP18, EPAP8) with FiO2 of 30%. Continue to wean oxygen per pulmonary recommendations. Nurse reports patient is having vaginal bleeding. We will check serial CBC and pelvic ultrasound 11/24: I discussed with cardiology yesterday the need for a LifeVest. LifeVest is ordered and pending. Patient is s/p IVC filter placement. Continue metoprolol 100 mg p.o. twice daily, Aldactone 25 mg p.o. daily and losartan 25 mg p.o. daily. Patient still requiring BiPAP (IPAP18, EPAP8) with FiO2 of 30%. Continue to wean oxygen per pulmonary recommendations. No further reports of vaginal bleeding. Pelvic ultrasound negative 11/25: Awaiting for LifeVest. Patient is s/p IVC filter placement. Continue metoprolol 100 mg p.o. twice daily, Aldactone 25 mg p.o. daily and losartan 25 mg p.o. daily. Patient still requiring BiPAP (IPAP18, EPAP8) with FiO2 of 30%. Continue to wean oxygen per pulmonary recommendations. 11/26: Physical therapy recommends subacute rehab. Still awaiting LifeVest. Patient is s/p IVC filter placement. Continue metoprolol 100 mg p.o. twice daily, Aldactone 25 mg p.o. daily and losartan 25 mg p.o. daily. Patient still requiring BiPAP (IPAP18, EPAP8) with FiO2 of 30% at night. Continue to wean oxygen per pulmonary recommendations. Patient currently with 2 L O2. 11/27: Physical therapy recommends subacute rehab. Patient has a LifeVest. Patient's left lower extremity pain likely related to DVT. Continue pain control. Continue metoprolol 100 mg p.o. twice daily, Aldactone 25 mg p.o. daily and losartan 25 mg p.o. daily. Patient still requiring BiPAP (IPAP18, EPAP8) with FiO2 of 30% at night. 11/28: Physical therapy recommends subacute rehab. Patient has a LifeVest. Patient continues to complain of left lower extremity pain which makes it very difficult for ambulation. Continue Percocet for pain control. Add neurontin for possible neuropathy. Etiology is likely secondary to DVT. Continue metoprolol 100 mg p.o. twice daily, Aldactone 25 mg p.o. daily and losartan 25 mg p.o. daily. Patient still requiring BiPAP (IPAP18, EPAP8) with FiO2 of 30% at night. Repeated Doppler US of LLE and will ask vascular surgery to revisit. 11/29; worsening lower extremity DVTs, vascular following, on heparin drip 3/9; low-grade fever, leukocytosis, shortness of breath, chest x-ray possible left-sided pneumonia/possible healthcare associated pneumonia Blood cultures already sent, empiric antibiotic cefepime[renal dose confirmed with pharmacist] ID consult if needed 12/01; gram-positive bacteremia preliminary, add vancomycin 1 dose, repeat cultures, consult ID Worsening renal function, nephrology initiated hemodialysis today, patient is critically ill, very poor prognosis, with multiple comorbidities And critical issues. [employer] recommendations noted and appreciated History Interval history: I have seen and examined the patient at the bedside Patient's chart and medications reviewed Patient has worsening renal function. Nephrology planning to initiate hemodialysis Patient complains of mild shortness of breath Concerned about lower extremity swelling and DVT Vital signs noted Hospitalist Physical - Constitutional Vitals: Temp Pulse Resp BP Pulse Ox 98.4 F 124 H 16 88/55 98 12/01/21 07:38 12/01/21 06:01 12/01/21 07:38 12/01/21 07:38 12/01/21 07:55 General appearance: Present: no acute distress, well-nourished, obese (Morbidly obese) - EENT Eyes: Present: PERRL, EOM intact - Neck Neck: Present: supple, normal ROM - Respiratory Respiratory effort: normal Respiratory: bilateral: diminished, negative: rales, rhonchi, wheezing - Cardiovascular Rhythm: regular Heart Sounds: Present: S1 & S2 - Extremities Extremities: abnormal (Bilateral lower extremity DVT) Extremity abnormal: edema - Abdominal General gastrointestinal: soft, non-tender, non-distended, normal bowel sounds - Integumentary Integumentary: Present: clear, warm - Psychiatric Psychiatric: appropriate mood/affect, cooperative - Neurologic Neurologic: moves all extremities HEART Score - HEART Score Troponin: Troponin T 1.150 ng/mL (0.00-0.029) H* D 10/29/21 22:34 Results - Labs CBC & Chem 7: 12/01/21 09:38 12/01/21 09:38 Labs: Laboratory Last Values WBC 13.0 K/mm3 (4.5-11.0) H 11/29/21 13:51 RBC 3.41 M/mm3 (3.65-5.03) L 11/29/21 13:51 Hgb 8.7 gm/dl (10.1-14.3) L 11/30/21 05:14 Hct 26.8 % (30.3-42.9) L 11/30/21 05:14 MCV 88 fl (79-97) 11/29/21 13:51 MCH 28 pg (28-32) 11/29/21 13:51 MCHC 32 % (30-34) 11/29/21 13:51 RDW 16.2 % (13.2-15.2) H 11/29/21 13:51 Plt Count 227 K/mm3 (140-440) 11/29/21 13:51 Lymph % (Auto) 11.1 % (13.4-35.0) L 11/29/21 13:51 Garvin % (Auto) 15.5 % (0.0-7.3) H 11/29/21 13:51 Eos % (Auto) 1.0 % (0.0-4.3) 11/29/21 13:51 Baso % (Auto) 0.6 % (0.0-1.8) 11/29/21 13:51 Lymph # (Auto) 1.4 K/mm3 (1.2-5.4) 11/29/21 13:51 Garvin # (Auto) 2.0 K/mm3 (0.0-0.8) H 11/29/21 13:51 Eos # (Auto) 0.1 K/mm3 (0.0-0.4) 11/29/21 13:51 Baso # (Auto) 0.1 K/mm3 (0.0-0.1) 11/29/21 13:51 Add Manual Diff Complete 11/07/21 06:30 Total Counted 100 11/07/21 06:30 Seg Neutrophils % 71.8 % (40.0-70.0) H 11/29/21 13:51 Seg Neuts % (Manual) 77.0 % (40.0-70.0) H 11/07/21 06:30 Band Neutrophils % 1.0 % 11/07/21 06:30 Lymphocytes % (Manual) 11.0 % (13.4-35.0) L 11/07/21 06:30 Reactive Lymphs % (Man) 3.0 % 11/07/21 06:30 Monocytes % (Manual) 2.0 % (0.0-7.3) 11/07/21 06:30 Eosinophils % (Manual) 0 % (0.0-4.3) 11/07/21 06:30 Basophils % (Manual) 0 % (0.0-1.8) 11/07/21 06:30 Metamyelocytes % 1.0 % 11/07/21 06:30 Myelocytes % 5.0 % 11/07/21 06:30 Promyelocytes % 0 % 11/07/21 06:30 Blast Cells % 0 % 11/07/21 06:30 Nucleated RBC % 2.0 % (0.0-0.9) H 11/07/21 06:30 Seg Neutrophils # 9.3 K/mm3 (1.8-7.7) H 11/29/21 13:51 Seg Neutrophils # Man 12.3 K/mm3 (1.8-7.7) H 11/07/21 06:30 Band Neutrophils # 0.2 K/mm3 11/07/21 06:30 Lymphocytes # (Manual) 1.8 K/mm3 (1.2-5.4) 11/07/21 06:30 Abs React Lymphs (Man) 0.5 K/mm3 11/07/21 06:30 Monocytes # (Manual) 0.3 K/mm3 (0.0-0.8) 11/07/21 06:30 Eosinophils # (Manual) 0.0 K/mm3 (0.0-0.4) 11/07/21 06:30 Basophils # (Manual) 0.0 K/mm3 (0.0-0.1) 11/07/21 06:30 Metamyelocytes # 0.2 K/mm3 11/07/21 06:30 Myelocytes # 0.8 K/mm3 11/07/21 06:30 Promyelocytes # 0.0 K/mm3 11/07/21 06:30 Blast Cells # 0.0 K/mm3 11/07/21 06:30 WBC Morphology Not Reportable 11/07/21 06:30 Hypersegmented Neuts Not Reportable 11/07/21 06:30 Hyposegmented Neuts Not Reportable 11/07/21 06:30 Hypogranular Neuts Not Reportable 11/07/21 06:30 Smudge Cells Not Reportable 11/07/21 06:30 Toxic Granulation Not Reportable 11/07/21 06:30 Toxic Vacuolation Not Reportable 11/07/21 06:30 Dohle Bodies Not Reportable 11/07/21 06:30 Pelger-Huet Anomaly Not Reportable 11/07/21 06:30 Manny Rods Not Reportable 11/07/21 06:30 Platelet Estimate Consistent w auto 11/07/21 06:30 Clumped Platelets Not Reportable 11/07/21 06:30 Plt Clumps, EDTA Not Reportable 11/07/21 06:30 Large Platelets 1+ 11/07/21 06:30 Giant Platelets Not Reportable 11/07/21 06:30 Platelet Satelliting Not Reportable 11/07/21 06:30 Plt Morphology Comment Not Reportable 11/07/21 06:30 RBC Morphology Not Reportable 11/07/21 06:30 Dimorphic RBCs Not Reportable 11/07/21 06:30 Polychromasia Not Reportable 11/07/21 06:30 Hypochromasia 1+ 11/07/21 06:30 Poikilocytosis Not Reportable 11/07/21 06:30 Anisocytosis Not Reportable 11/07/21 06:30 Microcytosis Not Reportable 11/07/21 06:30 Macrocytosis Not Reportable 11/07/21 06:30 Spherocytes 1+ 11/07/21 06:30 Pappenheimer Bodies Not Reportable 11/07/21 06:30 Sickle Cells Not Reportable 11/07/21 06:30 Target Cells 1+ 11/07/21 06:30 Tear Drop Cells Not Reportable 11/07/21 06:30 Ovalocytes Not Reportable 11/07/21 06:30 Helmet Cells Not Reportable 11/07/21 06:30 [place] Bodies Not Reportable 11/07/21 06:30 [place] Rings Not Reportable 11/07/21 06:30 [place] Cells Not Reportable 11/07/21 06:30 Bite Cells Not Reportable 11/07/21 06:30 Crenated Cell Not Reportable 11/07/21 06:30 Elliptocytes Not Reportable 11/07/21 06:30 Acanthocytes (Spur) Not Reportable 11/07/21 06:30 Rouleaux Not Reportable 11/07/21 06:30 Hemoglobin C Crystals Not Reportable 11/07/21 06:30 Schistocytes Not Reportable 11/07/21 06:30 Malaria parasites Not Reportable 11/07/21 06:30 Magdy Bodies Not Reportable 11/07/21 06:30 Hem Pathologist Commnt No 11/07/21 06:30 PT 17.2 Sec. (12.2-14.9) H 10/30/21 16:30 INR 1.27 (0.87-1.13) H 10/30/21 16:30 APTT 44.4 Sec. (24.2-36.6) H 10/30/21 16:30 D-Dimer > 73269 ng/mlDDU (0-234) H 10/30/21 Unknown Heparin Anti-Xa Level 0.18 U.I./ml (0.3-0.7) L 12/01/21 00:39 ABG pH 7.475 pH Units (7.350-7.450) H 11/11/21 13:53 ABG pCO2 45.0 mm Hg 11/11/21 13:53 ABG pO2 64.1 mm Hg (80.0-90.0) L 11/11/21 13:53 ABG HCO3 32.4 mmol/L (20.0-26.0) H 11/11/21 13:53 ABG O2 Saturation 96.3 % (95.0-99.0) 11/11/21 13:53 ABG O2 Content 10.1 (0.0-44) 11/11/21 13:53 ABG Base Excess 8.0 mmol/L (-2.0-3.0) H 11/11/21 13:53 ABG Hemoglobin 7.6 gm/dl (12.0-16.0) L 11/11/21 13:53 ABG Carboxyhemoglobin 1.8 % (0.0-5.0) 11/11/21 13:53 ABG Methemoglobin 0.5 % (0.0-1.5) 11/11/21 13:53 Oxyhemoglobin 94.0 % (95.0-99.0) L 11/11/21 13:53 FiO2 32 % 11/11/21 13:53 Sodium 126 mmol/L (137-145) L 11/30/21 15:26 Potassium 4.6 mmol/L (3.6-5.0) 11/30/21 15:26 Chloride 86.5 mmol/L (98-107) L 11/30/21 15:26 Carbon Dioxide 22 mmol/L (22-30) 11/30/21 15:26 Anion Gap 22 mmol/L 11/30/21 15:26 BUN 42 mg/dL (7-17) H 11/30/21 15:26 Creatinine 4.0 mg/dL (0.6-1.2) H 11/30/21 15:26 Estimated GFR 14 ml/min 11/30/21 15:26 BUN/Creatinine Ratio 11 % 11/30/21 15:26 Glucose 155 mg/dL (65-100) H 11/30/21 15:26 POC Glucose 115 mg/dL (70-105) H 11/30/21 20:04 Hemoglobin A1c 6.7 % (4-6) H 10/31/21 04:30 Lactic Acid 0.70 mmol/L (0.7-2.0) 10/31/21 15:45 Calcium 8.0 mg/dL (8.4-10.2) L 11/30/21 15:26 Phosphorus 3.10 mg/dL (2.5-4.5) 11/19/21 14:38 Magnesium 1.60 mg/dL (1.7-2.3) L 11/19/21 14:38 Ferritin 208.4 ng/mL (10.0-200.0) H 10/30/21 Unknown Total Bilirubin < 0.20 mg/dL (0.1-1.2) 11/06/21 02:35 AST 21 units/L (5-40) 11/06/21 02:35 ALT 77 units/L (7-56) H 11/06/21 02:35 Alkaline Phosphatase 84 units/L (35-129) 11/06/21 02:35 Ammonia 31.0 umol/L (25-60) 10/29/21 15:10 Lactate Dehydrogenase 469 units/L (91-180) H 10/30/21 Unknown Troponin T 1.150 ng/mL (0.00-0.029) H* D 10/29/21 22:34 C-Reactive Protein 13.40 mg/dL (0.00-1.30) H 10/30/21 Unknown Total Protein 6.3 g/dL (6.3-8.2) 11/06/21 02:35 Albumin 3.0 g/dL (3.9-5) L 11/06/21 02:35 Albumin/Globulin Ratio 0.9 % 11/06/21 02:35 Triglycerides 68 mg/dL (2-149) 10/29/21 19:40 Cholesterol 98 mg/dL (50-199) 10/29/21 19:40 LDL Cholesterol Direct 43 mg/dL (50-130) L 10/29/21 19:40 HDL Cholesterol 50 mg/dL (40-59) 10/29/21 19:40 Cholesterol/HDL Ratio 1.96 % 10/29/21 19:40 Procalcitonin 61.95 ng/mL (<0.15) 10/30/21 Unknown TSH 3.080 mlU/mL (0.270-4.200) 10/29/21 15:10 Urine Color Yellow (Yellow) 11/13/21 08:30 Urine Turbidity Slightly-cloudy (Clear) 11/13/21 08:30 Urine pH 6.0 (5.0-7.0) 11/13/21 08:30 Ur Specific [place] 1.010 (1.003-1.030) 11/13/21 08:30 Urine Protein <15 mg/dl mg/dL (Negative) 11/13/21 08:30 Urine Glucose (UA) Neg mg/dL (Negative) 11/13/21 08:30 Urine Ketones Tr mg/dL (Negative) 11/13/21 08:30 Urine Blood Sm (Negative) 11/13/21 08:30 Urine Nitrite Neg (Negative) 11/13/21 08:30 Urine Bilirubin Neg (Negative) 11/13/21 08:30 Urine Urobilinogen < 2.0 mg/dL (<2.0) 11/13/21 08:30 Ur Leukocyte Esterase Neg (Negative) 11/13/21 08:30 Urine WBC (Auto) < 1.0 /HPF (0.0-6.0) 11/13/21 08:30 Urine RBC (Auto) < 1.0 /HPF (0.0-6.0) 11/13/21 08:30 U Epithel Cells (Auto) < 1.0 /HPF (0-13.0) 11/13/21 08:30 Urine Mucus Few /HPF 10/29/21 18:15 Urine Eosinophils None seen (None Seen) 11/04/21 Unknown Urine Creatinine 190.9 mg/dL (0.1-20.0) H 11/04/21 Unknown Protein/Creatinin Ratio 0.90 11/04/21 Unknown Urine Sodium 10 mmol/L 11/04/21 Unknown Urine Total Protein 172 mg/dL (5-11.8) H 11/04/21 Unknown Salicylates < 0.3 mg/dL (2.8-20.0) L 10/29/21 15:10 Urine Opiates Screen Negative 10/29/21 18:15 Urine Methadone Screen Negative 10/29/21 18:15 Acetaminophen 5.0 ug/mL (10.0-30.0) L 10/29/21 15:10 Ur Barbiturates Screen Negative 10/29/21 18:15 Ur Phencyclidine Scrn Negative 10/29/21 18:15 Ur Amphetamines Screen Negative 10/29/21 18:15 U Benzodiazepines Scrn Negative 10/29/21 18:15 Urine Cocaine Screen Negative 10/29/21 18:15 U Marijuana (THC) Screen Negative 10/29/21 18:15 Drugs of Abuse Note Disclamer 10/29/21 18:15 Plasma/Serum Alcohol < 0.01 % (0-0.07) 10/29/21 15:10 Coronavirus (PCR) Negative (Negative) 10/30/21 Unknown Blood Type O POSITIVE 11/12/21 04:15 Antibody Screen Negative 11/12/21 04:15 Crossmatch See Detail 11/12/21 04:15 Microbiology: Microbiology 11/29/21 22:26 Peripheral/Venous Blood Culture - Preliminary NO GROWTH AFTER 24 HOURS 11/29/21 22:26 Peripheral/Venous Blood Culture - Preliminary NO GROWTH AFTER 24 HOURS Gregory/IV: Voiding Method External Female Catheter Active Medications - Current Medications Current Medications: Generic Name Dose Route Start Last Admin Trade Name Freq PRN Reason Stop Dose Admin Acetaminophen 650 mg 10/29/21 17:04 11/12/21 22:53 Acetaminophen 650 Mg Rect Supp IL 650 mg Q6H PRN Administration Pain MILD(1-3)/Fever >100.5/NIEVES Acetaminophen 650 mg 11/19/21 16:35 11/30/21 16:01 Acetaminophen 325 Mg Tab PO 650 mg Q6HR PRN Administration PAIN Alprazolam 0.25 mg 11/14/21 14:29 11/27/21 11:24 Alprazolam 0.25 Mg Tab PO 0.25 mg Q8H PRN Administration Anxiety Dextrose 0 ml 11/04/21 13:48 11/12/21 05:45 Dextrose 10% *Hypoglycemia IV 50 ml PRN PRN Administration Hypoglycemia Docusate Sodium 100 mg 11/18/21 15:00 11/30/21 21:45 Docusate Sodium 100 Mg Cap PO 100 mg BID RAMON Administration Famotidine 10 mg 11/06/21 10:00 11/30/21 21:45 Famotidine 10 Mg Tab PO 10 mg BID RAMON Administration Gabapentin 100 mg 11/28/21 14:00 12/01/21 06:01 Gabapentin 100 Mg Cap PO 100 mg Q8HR RAMON Administration Heparin Sodium (Porcine) 4,000 unit 12/01/21 07:50 Heparin 10,000 Units/10 Ml Vial 40 unit/kg (4300 unit) IV Q6H PRN Anti-Xa Assay < 0.1 units/ml Hydralazine HCl 50 mg 11/22/21 22:00 12/01/21 06:01 Hydralazine 25 Mg Tab PO Not Given Q8HR [facility] Hydrophilic Ointment 1 applic 10/29/21 14:29 11/09/21 08:51 Lip Therapy Vaseline TP 1 applic Q2HR PRN Administration Dry Lips Heparin Sodium/Sodium Chloride 25,000 unit in 500 mls @ 30 mls/hr 11/28/21 17:00 12/01/21 01:49 Heparin/ 0.45% Nacl-25,000 Unit/500 Ml IV 1,600 units/hr TITR RAMON 32 mls/hr Titration Protocol 1,500 UNITS/HR Cefepime HCl 1 gm in 100 mls @ 200 mls/hr 12/01/21 10:00 Cefepime/Ns 1 Gm/100 Ml IV Q24H [facility] Protocol Insulin Human Lispro 0 unit 11/25/21 22:00 11/30/21 21:55 Insulin Lispro 100 Unit/Ml SUB-Q Not Given ACHS [facility] Protocol Lactulose 20 gm 11/18/21 14:43 11/29/21 21:20 Lactulose 20 Gm/30 Ml Oral Liqd PO 20 gm Q6H PRN Administration Constipation Melatonin 10 mg 11/22/21 17:31 11/27/21 21:32 Melatonin 5 Mg Tab PO 10 mg QHS PRN Administration Sleep Metoprolol Tartrate 100 mg 11/16/21 22:00 11/30/21 21:54 Metoprolol Tartrate 100 Mg Tab PO Not Given BID RAMON Morphine Sulfate 1 mg 11/28/21 15:00 11/29/21 07:58 Morphine 2 Mg/1 Ml Inj IV 1 mg Q4H PRN Administration Pain, Moderate (4-6) Multi-Ingred Cream/Lotion/Oil/Oint 1 applic 10/29/21 14:29 11/06/21 09:25 Mineral Oil/Petrolatum, White Ophth Oint 3.5 Gm OU 1 applic Q4HR PRN Administration Dry Eye(s) Oxycodone/Acetaminophen 1 tab 11/27/21 14:31 11/29/21 22:25 Oxycodone /Acetaminophen 5-325mg Tab PO 1 tab Q4H PRN Administration Pain, Moderate (4-6) Polyethylene Glycol 17 gm 11/20/21 12:47 11/25/21 08:30 Polyethylene Glycol 3350 17 Gm Powder PO 17 gm QDAY PRN Administration Constipation Senna/Docusate Sodium 1 tab 11/16/21 22:00 11/30/21 21:45 Sennosides/Docusate Sodium 8.6/50 Mg Tab PO 1 tab BID RAMON Administration Sodium Chloride 10 ml 10/29/21 22:00 11/30/21 21:46 Sodium Chloride 0.9% 10 Ml Flush Syringe IV 10 ml BID RAMON Administration Sodium Chloride 10 ml 10/29/21 17:04 Sodium Chloride 0.9% 10 Ml Flush Syringe IV PRN PRN LINE FLUSH Spironolactone 25 mg 11/10/21 10:00 11/30/21 10:05 Spironolactone 25 Mg Tab PO 25 mg QDAY RAMON Administration Nutrition/Malnutrition Assess - Dietary Evaluation Nutrition/Malnutrition Findings: Nutrition Notes Start: 10/30/21 09:50 Freq: Status: Active Protocol: Document 11/25/21 19:04 MEENU (Rec: 11/25/21 19:16 MEENU [id number]) Nutrition Notes Initial or Follow up Reassessment Current Diagnosis Sepsis,Hypertension, Respiratory Failure Other Pertinent Diagnosis s/p Cardiac Arrest, DVT, Anemia, Pneumonia, Pneumothorax, P Edema, HFrEF.. . Current Diet Mechanical Soft Diet (since B 11/22). Labs/Tests 11/24: K 3.2, Cl 96.7, Glu 125 . Pertinent Medications 11/25: Nutritionally unremarkable. Height 5 ft 10 in Weight 109.5 kg Export Body Weight (kg) 68.18 BMI 34.6 Weight change and time frame 2.5 Kg body weight loss in 1 week reported. Weight Status Obese Subjective/Other Information RD consulr for routine F/U on Diet tolerance/advancement. Diet has advanced to Mechanical Soft. Pt's PO intake of meals has been Fair (50-75%), according to ADL notes. Percent of energy/protein needs met: Prescribed Mechanical Soft Diet provides for energy/ protein needs (2,048 Kcal/97 g ) during LOS. Burn Absent Trauma Absent GI Symptoms None Food Allergy No Skin Integrity/Comment Assessment WNL. Current % PO Fair (50-74%) Minimum of two criteria No #1 Nutrition Diagnosis Inadequate oral intake Comments: Pt's PO intake of meals has been Fair (50-75%), according to ADL notes. Diet advanced to Mechanical Soft. Diagnosis Progress(for reassessment Improved documentation) Is patient on ventilator? No Is Patient Ambulatory and/or Out of Bed No REE-([facility]-confined to bed) 2056.424 Kcal/Kg value to use for calculation 15 Approximate Energy Requirements Using 1643 kcal/Kg Calculation Used for Recommendations Kcal/kg Additional Notes Protein: 0.8-1.2 g/Kg IBW; 70- 105 g/day. Fluids: 1 ml/Kcal, or as per MD. Nutrition Intervention Change Diet Order: Continue Mechanical Soft Diet. Goal #1 Maintain body weight within +/ -3% of admission body weight during LOS. Goal #2 Facilitate PO intake of meals with mechanical modification during LOS. Follow-Up By: 12/02/21 Additional Comments Continue monitoring food tolerance, %PO intake of meals , and BM.
[2021-12-01 09:57] LABS: Hematocrit 26.8 % (30.3-42.9); Hemoglobin 8.5 gm/dl (10.1-14.3); Mean Corpuscular HGB Conc 32 % (30-34); Mean Corpuscular Volume 88 fl (79-97); Platelet Count 282 K/mm3 (140-440); Red Blood Count 3.06 M/mm3 (3.65-5.03); Red Cell Distribution Width 16.1 % (13.2-15.2)
[2021-12-01 10:11] LABS: Calcium 7.9 mg/dL (8.4-10.2)
[2021-12-01 10:46] LABS: Band Neutrophils # (Manual) 1.3 K/mm3; Basophils % (Manual) 0 % (0.0-1.8); Eosinophils % (Manual) 0 % (0.0-4.3); Total Cells Counted 100
[2021-12-01 10:47] LABS: Anisocytosis 1+; Dohle Bodies Rare; Platelet Estimate Consistent w Auto; Toxic Granulation 1+; Toxic Vacuolation Rare
--- NOTE | 2021-12-01 11:11 | Progress Note ---
Assessment and Plan Assessment: Acute Renal Failure secondary to Ischemic ATN secondary to Sepsis, Cardiac arrest and Hypotension S/P Cardiac Arrest Acute Hypoxemic Respiratory Failure Acute DVT Sepsis CHF Anemia Hyperkalemia Hyponatremia Plan: Renal labs reviewed. Serum creatinine 4.9 today, yesterday's was 4.0, UOP only 100 ml in the last 24 hours Given patient's worsening renal failure coupled with oliguria and electrolyte abnormalities, we have discussed hemodialysis initiation with patient and vasc- catheter placement. Risks and benefits of hemodialysis were explained and discussed. Patient is agreeable and consented. I called and spoke with patient's daughter Eva at [phone] at length about recommendation for vasc cath placement and hemodialysis initiation who has consented and agreed. Answered all questions. Consulted IR for vasc cath placement today Hemodialysis ordered for UF and clearance after vasc cath is placed IV Albumin to help with BP support during HD Hypotension-Start Midodrine 10 mg po TID CXR shows congestion CHF-LVEF 25-30 % On Spironolactone Losartan stopped Toradol stopped Anemia-KIKI as needed. Transfuse as needed Obtain daily weights Strict I/O's daily Renally dose medications Avoid nephrotoxic agents Continue to monitor renal function closely Assess dialysis needs daily Plan of care reviewed by Dr. Grant Subjective Date of service: 12/01/21 Principal diagnosis: AHRF; Cardiac arrest; R. pneumothorax; pneumonia; AMS; DVT's; SIERRA; Obesity Interval history: Patient seen lying in bed. Patient is wake and alert and oriented x 3. No family at bedside. Called patient's daughter Eva at [phone] and discussed recommendation for hemodialysis initiation, she consented. Also discussed hemodialysis initiation with patient at bedside who is agreeable and consented. Objective - Vital Signs Vital signs: Vital Signs - 12hr 12/01/21 12/01/21 12/01/21 00:00 03:12 06:01 Temperature 98.6 F Pulse Rate 124 H 124 H Pulse Rate [ 124 H Right Dorsalis Pedis] Respiratory 17 18 Rate Blood Pressure 81/39 81/39 O2 Sat by Pulse 98 96 Oximetry 12/01/21 12/01/21 07:38 07:55 Temperature 98.4 F Pulse Rate Pulse Rate [ Right Dorsalis Pedis] Respiratory 16 Rate Blood Pressure 88/55 O2 Sat by Pulse 98 Oximetry - General Appearance General appearance: well-developed, appears stated age EENT: ATNC, PERRL, hearing intact, vision intact Neck: no JVD, supple Respiratory: Present: Decreased Breath Sounds Cardiology: S1S2 Gastrointestinal: normoactive bowel sounds Integumentary: warm and dry Neurologic: alert and oriented x3 Musculoskeletal: joint swelling, other (2+ edema to bLE) Psychiatric: cooperative - Lab 12/01/21 09:38 12/01/21 09:38 Most recent lab results ABG pH 7.475 pH Units (7.350-7.450) H 11/11/21 13:53 ABG pCO2 45.0 mm Hg 11/11/21 13:53 ABG pO2 64.1 mm Hg (80.0-90.0) L 11/11/21 13:53 ABG HCO3 32.4 mmol/L (20.0-26.0) H 11/11/21 13:53 ABG O2 Saturation 96.3 % (95.0-99.0) 11/11/21 13:53 Calcium 7.9 mg/dL (8.4-10.2) L 12/01/21 09:38 Phosphorus 3.10 mg/dL (2.5-4.5) 11/19/21 14:38 Magnesium 1.60 mg/dL (1.7-2.3) L 11/19/21 14:38 Urine Creatinine 190.9 mg/dL (0.1-20.0) H 11/04/21 Unknown Urine Sodium 10 mmol/L 11/04/21 Unknown Urine Total Protein 172 mg/dL (5-11.8) H 11/04/21 Unknown Medications & Allergies - Medications Allergies/Adverse Reactions: Allergies No Known Allergies Allergy (Verified 10/29/21 14:01) Home Medications: Home Medications Medication Instructions Recorded Confirmed Last Taken Type Unobtainable 11/10/21 11/10/21 Unknown History Active Medications: Generic Name Dose Route Start Last Admin Trade Name Freq PRN Reason Stop Dose Admin Acetaminophen 650 mg 10/29/21 17:04 11/12/21 22:53 Acetaminophen 650 Mg Rect Supp ND 650 mg Q6H PRN Administration Pain MILD(1-3)/Fever >100.5/NIEVES Acetaminophen 650 mg 11/19/21 16:35 11/30/21 16:01 Acetaminophen 325 Mg Tab PO 650 mg Q6HR PRN Administration PAIN Alprazolam 0.25 mg 11/14/21 14:29 11/27/21 11:24 Alprazolam 0.25 Mg Tab PO 0.25 mg Q8H PRN Administration Anxiety Dextrose 0 ml 11/04/21 13:48 11/12/21 05:45 Dextrose 10% *Hypoglycemia IV 50 ml PRN PRN Administration Hypoglycemia Docusate Sodium 100 mg 11/18/21 15:00 11/30/21 21:45 Docusate Sodium 100 Mg Cap PO 100 mg BID RAMON Administration Famotidine 10 mg 11/06/21 10:00 11/30/21 21:45 Famotidine 10 Mg Tab PO 10 mg BID RAMON Administration Gabapentin 100 mg 11/28/21 14:00 12/01/21 06:01 Gabapentin 100 Mg Cap PO 100 mg Q8HR RAMON Administration Heparin Sodium (Porcine) 4,000 unit 12/01/21 07:50 Heparin 10,000 Units/10 Ml Vial 40 unit/kg (4300 unit) IV Q6H PRN Anti-Xa Assay < 0.1 units/ml Hydralazine HCl 50 mg 11/22/21 22:00 12/01/21 06:01 Hydralazine 25 Mg Tab PO Not Given Q8HR RAMON Hydrophilic Ointment 1 applic 10/29/21 14:29 11/09/21 08:51 Lip Therapy Vaseline TP 1 applic Q2HR PRN Administration Dry Lips Heparin Sodium/Sodium Chloride 25,000 unit in 500 mls @ 30 mls/hr 11/28/21 17:00 12/01/21 01:49 Heparin/ 0.45% Nacl-25,000 Unit/500 Ml IV 1,600 units/hr TITR RAMON 32 mls/hr Titration Protocol 1,500 UNITS/HR Cefepime HCl 1 gm in 100 mls @ 200 mls/hr 12/01/21 10:00 Cefepime/Ns 1 Gm/100 Ml IV Q24H [facility] Protocol Insulin Human Lispro 0 unit 11/25/21 22:00 11/30/21 21:55 Insulin Lispro 100 Unit/Ml SUB-Q Not Given ACHS [facility] Protocol Lactulose 20 gm 11/18/21 14:43 11/29/21 21:20 Lactulose 20 Gm/30 Ml Oral Liqd PO 20 gm Q6H PRN Administration Constipation Melatonin 10 mg 11/22/21 17:31 11/27/21 21:32 Melatonin 5 Mg Tab PO 10 mg QHS PRN Administration Sleep Metoprolol Tartrate 100 mg 11/16/21 22:00 11/30/21 21:54 Metoprolol Tartrate 100 Mg Tab PO Not Given BID RAMON Morphine Sulfate 1 mg 11/28/21 15:00 11/29/21 07:58 Morphine 2 Mg/1 Ml Inj IV 1 mg Q4H PRN Administration Pain, Moderate (4-6) Multi-Ingred Cream/Lotion/Oil/Oint 1 applic 10/29/21 14:29 11/06/21 09:25 Mineral Oil/Petrolatum, White Ophth Oint 3.5 Gm OU 1 applic Q4HR PRN Administration Dry Eye(s) Oxycodone/Acetaminophen 1 tab 11/27/21 14:31 11/29/21 22:25 Oxycodone /Acetaminophen 5-325mg Tab PO 1 tab Q4H PRN Administration Pain, Moderate (4-6) Polyethylene Glycol 17 gm 11/20/21 12:47 11/25/21 08:30 Polyethylene Glycol 3350 17 Gm Powder PO 17 gm QDAY PRN Administration Constipation Senna/Docusate Sodium 1 tab 11/16/21 22:00 11/30/21 21:45 Sennosides/Docusate Sodium 8.6/50 Mg Tab PO 1 tab BID RAMON Administration Sodium Chloride 10 ml 10/29/21 22:00 11/30/21 21:46 Sodium Chloride 0.9% 10 Ml Flush Syringe IV 10 ml BID RAMON Administration Sodium Chloride 10 ml 10/29/21 17:04 Sodium Chloride 0.9% 10 Ml Flush Syringe IV PRN PRN LINE FLUSH Spironolactone 25 mg 11/10/21 10:00 11/30/21 10:05 Spironolactone 25 Mg Tab PO 25 mg QDAY RAMON Administration
--- NOTE | 2021-12-01 11:29 | Progress Note ---
Assessment and Plan Given the patient's spontaneous bleeding that prevented the continuation of anticoagulation and ultimately required filter placement, the patient has had propagation of a DVT. Given the patient's vital signs as she is now tachycardic and hypotensive with slight decrease in hemoglobin, the patient will need to have any recurrent bleeding ruled out. Will order a CTA of the chest abdomen and pelvis and both arterial and delayed phases. Subjective Date of service: 12/01/21 Principal diagnosis: AHRF; Cardiac arrest; R. pneumothorax; pneumonia; AMS; DVT's; SIERRA; Obesity Interval history: Patient with a history of out of hospital cardiac arrest with the initiation of CPR by bystanders with resuscitative efforts continued until the patient reached the hospital patient patient had among other medical issues multiple rib fractures and both extraperitoneal and retroperitoneal bleeding. At that time, anticoagulation was discontinued and the patient stabilized. The patient was also noted to have a small DVT and ultimately an IVC filter placed. I the patient's DVT then propagated and 2 days ago, the initiation of initially low- dose heparin followed by standard dose heparin was performed. The patient systolic blood pressure has declined into the 80s with the patient becoming tachycardic into the 120s. On examination, the patient is sleepy, feels somewhat weak. Complains of some mild left leg pain that prevents her from fully participating in physical therapy. Reconsulted to evaluate patient's worsening DVT to determine if there is any therapeutic options. Objective - Constitutional Vitals: Vital Signs - 12hr 12/01/21 12/01/21 12/01/21 00:00 03:12 06:01 Temperature 98.6 F Pulse Rate 124 H 124 H Pulse Rate [ 124 H Right Dorsalis Pedis] Respiratory 17 18 Rate Blood Pressure 81/39 81/39 O2 Sat by Pulse 98 96 Oximetry 12/01/21 12/01/21 07:38 07:55 Temperature 98.4 F Pulse Rate Pulse Rate [ Right Dorsalis Pedis] Respiratory 16 Rate Blood Pressure 88/55 O2 Sat by Pulse 98 Oximetry General appearance: Present: obese - EENT ENT: hearing intact - Neck Neck: normal ROM - Respiratory Respiratory effort: normal Extremity abnormal: edema (Bilateral lower extremity edema left greater than right) - Gastrointestinal General gastrointestinal: Present: deferred - Psychiatric Psychiatric: cooperative - Labs CBC & Chem 7: 12/01/21 09:38 03/10/22 09:38 Labs: Abnormal lab results 11/30/21 11/30/21 11/30/21 Range/Units 15:26 17:10 18:51 WBC (4.5-11.0) K/mm3 RBC (3.65-5.03) M/mm3 Hgb (10.1-14.3) gm/dl Hct (30.3-42.9) % RDW (13.2-15.2) % Seg Neuts % (Manual) (40.0-70.0) % Lymphocytes % (Manual) (13.4-35.0) % Seg Neutrophils # Man (1.8-7.7) K/mm3 Monocytes # (Manual) (0.0-0.8) K/mm3 Heparin Anti-Xa Level 0.10 L (0.3-0.7) U.I./ml Sodium 126 L (137-145) mmol/L Potassium (3.6-5.0) mmol/L Chloride 86.5 L (98-107) mmol/L BUN 42 H (7-17) mg/dL Creatinine 4.0 H (0.6-1.2) mg/dL Glucose 155 H (65-100) mg/dL POC Glucose 157 H (70-105) mg/dL Calcium 8.0 L (8.4-10.2) mg/dL 11/30/21 12/01/21 12/01/21 Range/Units 20:04 00:39 09:38 WBC 25.2 H (4.5-11.0) K/mm3 RBC 3.06 L (3.65-5.03) M/mm3 Hgb 8.5 L (10.1-14.3) gm/dl Hct 26.8 L (30.3-42.9) % RDW 16.1 H (13.2-15.2) % Seg Neuts % (Manual) 80.0 H (40.0-70.0) % Lymphocytes % (Manual) 9.0 L (13.4-35.0) % Seg Neutrophils # Man 20.2 H (1.8-7.7) K/mm3 Monocytes # (Manual) 1.3 H (0.0-0.8) K/mm3 Heparin Anti-Xa Level 0.18 L (0.3-0.7) U.I./ml Sodium (137-145) mmol/L Potassium (3.6-5.0) mmol/L Chloride (98-107) mmol/L BUN (7-17) mg/dL Creatinine (0.6-1.2) mg/dL Glucose (65-100) mg/dL POC Glucose 115 H (70-105) mg/dL Calcium (8.4-10.2) mg/dL 12/01/21 Range/Units 09:38 WBC (4.5-11.0) K/mm3 RBC (3.65-5.03) M/mm3 Hgb (10.1-14.3) gm/dl Hct (30.3-42.9) % RDW (13.2-15.2) % Seg Neuts % (Manual) (40.0-70.0) % Lymphocytes % (Manual) (13.4-35.0) % Seg Neutrophils # Man (1.8-7.7) K/mm3 Monocytes # (Manual) (0.0-0.8) K/mm3 Heparin Anti-Xa Level (0.3-0.7) U.I./ml Sodium 127 L (137-145) mmol/L Potassium 5.1 H (3.6-5.0) mmol/L Chloride 87.9 L (98-107) mmol/L BUN 49 H (7-17) mg/dL Creatinine 4.9 H (0.6-1.2) mg/dL Glucose 134 H (65-100) mg/dL POC Glucose (70-105) mg/dL Calcium 7.9 L (8.4-10.2) mg/dL Medications & Allergies - Medications Allergies/Adverse Reactions: Allergies No Known Allergies Allergy (Verified 10/29/21 14:01) Home Medications: Home Medications Medication Instructions Recorded Confirmed Last Taken Type Unobtainable 11/10/21 11/10/21 Unknown History Active Medications: Generic Name Dose Route Start Last Admin Trade Name Freq PRN Reason Stop Dose Admin Acetaminophen 650 mg 10/29/21 17:04 11/12/21 22:53 Acetaminophen 650 Mg Rect Supp PA 650 mg Q6H PRN Administration Pain MILD(1-3)/Fever >100.5/NIEVES Acetaminophen 650 mg 11/19/21 16:35 11/30/21 16:01 Acetaminophen 325 Mg Tab PO 650 mg Q6HR PRN Administration PAIN Alprazolam 0.25 mg 11/14/21 14:29 11/27/21 11:24 Alprazolam 0.25 Mg Tab PO 0.25 mg Q8H PRN Administration Anxiety Dextrose 0 ml 11/04/21 13:48 11/12/21 05:45 Dextrose 10% *Hypoglycemia IV 50 ml PRN PRN Administration Hypoglycemia Docusate Sodium 100 mg 11/18/21 15:00 11/30/21 21:45 Docusate Sodium 100 Mg Cap PO 100 mg BID RAMON Administration Famotidine 10 mg 11/06/21 10:00 11/30/21 21:45 Famotidine 10 Mg Tab PO 10 mg BID RAMON Administration Gabapentin 100 mg 11/28/21 14:00 12/01/21 06:01 Gabapentin 100 Mg Cap PO 100 mg Q8HR RAMON Administration Heparin Sodium (Porcine) 4,000 unit 12/01/21 07:50 Heparin 10,000 Units/10 Ml Vial 40 unit/kg (4300 unit) IV Q6H PRN Anti-Xa Assay < 0.1 units/ml Hydralazine HCl 50 mg 11/22/21 22:00 12/01/21 06:01 Hydralazine 25 Mg Tab PO Not Given Q8HR [facility] Hydrophilic Ointment 1 applic 10/29/21 14:29 11/09/21 08:51 Lip Therapy Vaseline TP 1 applic Q2HR PRN Administration Dry Lips Heparin Sodium/Sodium Chloride 25,000 unit in 500 mls @ 30 mls/hr 11/28/21 17:00 12/01/21 01:49 Heparin/ 0.45% Nacl-25,000 Unit/500 Ml IV 1,600 units/hr TITR RAMON 32 mls/hr Titration Protocol 1,500 UNITS/HR Cefepime HCl 1 gm in 100 mls @ 200 mls/hr 12/01/21 10:00 Cefepime/Ns 1 Gm/100 Ml IV Q24H [facility] Protocol Insulin Human Lispro 0 unit 11/25/21 22:00 11/30/21 21:55 Insulin Lispro 100 Unit/Ml SUB-Q Not Given ACHS [facility] Protocol Lactulose 20 gm 11/18/21 14:43 11/29/21 21:20 Lactulose 20 Gm/30 Ml Oral Liqd PO 20 gm Q6H PRN Administration Constipation Melatonin 10 mg 11/22/21 17:31 11/27/21 21:32 Melatonin 5 Mg Tab PO 10 mg QHS PRN Administration Sleep Metoprolol Tartrate 100 mg 11/16/21 22:00 11/30/21 21:54 Metoprolol Tartrate 100 Mg Tab PO Not Given BID RAMON Morphine Sulfate 1 mg 11/28/21 15:00 11/29/21 07:58 Morphine 2 Mg/1 Ml Inj IV 1 mg Q4H PRN Administration Pain, Moderate (4-6) Multi-Ingred Cream/Lotion/Oil/Oint 1 applic 10/29/21 14:29 11/06/21 09:25 Mineral Oil/Petrolatum, White Ophth Oint 3.5 Gm OU 1 applic Q4HR PRN Administration Dry Eye(s) Oxycodone/Acetaminophen 1 tab 11/27/21 14:31 11/29/21 22:25 Oxycodone /Acetaminophen 5-325mg Tab PO 1 tab Q4H PRN Administration Pain, Moderate (4-6) Polyethylene Glycol 17 gm 11/20/21 12:47 11/25/21 08:30 Polyethylene Glycol 3350 17 Gm Powder PO 17 gm QDAY PRN Administration Constipation Senna/Docusate Sodium 1 tab 11/16/21 22:00 11/30/21 21:45 Sennosides/Docusate Sodium 8.6/50 Mg Tab PO 1 tab BID RAMON Administration Sodium Chloride 10 ml 10/29/21 22:00 11/30/21 21:46 Sodium Chloride 0.9% 10 Ml Flush Syringe IV 10 ml BID RAMON Administration Sodium Chloride 10 ml 10/29/21 17:04 Sodium Chloride 0.9% 10 Ml Flush Syringe IV PRN PRN LINE FLUSH Spironolactone 25 mg 11/10/21 10:00 11/30/21 10:05 Spironolactone 25 Mg Tab PO 25 mg QDAY RAMON Administration HEART Score - HEART Score Troponin: Troponin T 1.150 ng/mL (0.00-0.029) H* D 10/29/21 22:34
--- NOTE | 2021-12-01 11:55 | Progress Note ---
Assessment and Plan Acute hypoxemic respiratory failure on MVS Cardiac arrest with ROSC Acute DVT Right pneumothorax Shock (septic +/- cardiogenic) Possible aspiration pneumonia SIERRA Altered mental status/acute encephalopathy Elevated serum transaminases, likely shock liver Metabolic acidosis Obesity Retro-peritoneal Hematoma Leukocytosis Hypokalemia Lactic acidosis - for CTA of the chest abdomen and pelvis and both arterial and delayed phases re: H&H trending down and hypotension - will transfer to IMCU for closer observation ifg remains hypotensive - 250 mls IVNS bolus - IR to place trialysis catheter - get ABG re: acidosis ? - begin Midodrine - Vasopressors post CVL for target MAP > 65 mmHg - continue anticoagulation while trending H&H - continue BIPAP scheduled qhs with prn daytime use - continue care as below otherwise; - continue to wean supplemental oxygen for target O2 sat's > 90% acutely - aspiration precautions - continue bronchodilators with pulmonary hygiene per RT - continue accuchecks with glycemic control per SSI (While critically ill target blood glucose of 140-180 mg/dL; avoid hypoglycemia) - avoid nephrotoxins, renally dose all medications - continue to avoid benzodiazepine's, reduce the possibility of delirium - AB's per ID rec's - prn analgesia per pain score - Maintenance of sleep-wake cycle, avoid delirium - G.I. & VTE prophylaxis - PT/OT/ROM exercises - continue mobility protocols for pressure ulcer prophylaxis - Monitor hemodynamics closely - continue other care per attending / other consultants - discharge planning ongoing concurrently COVID SPECIFIC INTERVENTIONS - COVID-19 PCR negative .... Re-evaluate in am & prn CONDITION: CRITICAL PROGNOSIS: GUARDED CODE STATUS: FULL CODE The high probability of a clinically significant, sudden or life-threatening deterioration of the [respiratory, cardiovascular, renal & neurologic] system(s) required my full and direct attention, intervention and personal management. The aggregate critical care time was [32] minutes without overlap. Time includes spent on; [x] Data Review and interpretation [x] Patient assessment and monitoring of vital signs [x] Documentation [x] Medication orders and management Subjective Date of service: 12/01/21 Principal diagnosis: AHRF; Cardiac arrest; R. pneumothorax; pneumonia; AMS; DVT's; SIERRA; Obesity Interval history: Patient is seen today for: Acute hypoxemic respiratory failure; Cardiac arrest with ROSC; Right pneumothorax; pneumonia; AMS; bilateral DVT's; SIERRA; Obesity Seen and examined at bedside; 24hour events reviewed; nursing and respiratory care staff consulted; no adverse overnight events reported to me; resting in bed; remains on supplemental oxygen; hypotensive; azotemia worsening Objective Vital Signs - 12hr 12/01/21 12/01/21 12/01/21 00:00 03:12 06:01 Temperature 98.6 F Pulse Rate 124 H 124 H Pulse Rate [ 124 H Right Dorsalis Pedis] Respiratory 17 18 Rate Blood Pressure 81/39 81/39 O2 Sat by Pulse 98 96 Oximetry 12/01/21 12/01/21 12/01/21 07:38 07:55 10:53 Temperature 98.4 F 98.8 F Pulse Rate 118 H Pulse Rate [ Right Dorsalis Pedis] Respiratory 16 16 Rate Blood Pressure 88/55 88/36 O2 Sat by Pulse 98 100 Oximetry Constitutional: no acute distress, alert, other (elderly obese female with mildly increased respiratory effort at rest ) Eyes: non-icteric ENT: oropharynx moist Neck: supple, no lymphadenopathy, no JVD, other (large circumference) Effort: mildly labored Ascultation: Bilateral: diminished breath sounds, rhonchi (bases) Percussion: Bilateral: not dull Cardiovascular: regular rate and rhythm, other (no R/M) Gastrointestinal: normoactive bowel sounds, soft, non-tender, other (obese) Integumentary: normal, other (Left flank ecchymosis with induration) Extremities: no cyanosis, pulses normal, no ischemia or petechiae, edema Neurologic: normal mental status, non-focal exam (grossly), pupils equal and round, motor strength normal and (weak) Psychiatric: mood appropriate, affect normal CBC and BMP: 12/02/21 03:22 12/02/21 03:22 ABG, PT/INR, D-dimer: ABG ABG pH 7.475 pH Units (7.350-7.450) H 11/11/21 13:53 ABG pCO2 45.0 mm Hg 11/11/21 13:53 ABG pO2 64.1 mm Hg (80.0-90.0) L 11/11/21 13:53 ABG O2 Saturation 96.3 % (95.0-99.0) 11/11/21 13:53 PT/INR, D-dimer PT 17.2 Sec. (12.2-14.9) H 10/30/21 16:30 INR 1.27 (0.87-1.13) H 10/30/21 16:30 D-Dimer > 28424 ng/mlDDU (0-234) H 10/30/21 Unknown Abnormal lab findings: Abnormal Labs 10/29/21 10/29/21 10/29/21 15:10 15:10 15:10 WBC 27.8 H RBC Hgb Hct MCH 27 L RDW Plt Count Lymph % (Auto) [place] % (Auto) Lymph # (Auto) [place] # (Auto) Seg Neutrophils % Seg Neuts % (Manual) 78.0 H Lymphocytes % (Manual) 10.0 L Nucleated RBC % Seg Neutrophils # Seg Neutrophils # Man 21.7 H Monocytes # (Manual) 1.4 H PT INR APTT D-Dimer Heparin Anti-Xa Level ABG pH ABG pO2 ABG HCO3 ABG O2 Saturation ABG Base Excess ABG Hemoglobin Oxyhemoglobin Sodium Potassium Chloride Carbon Dioxide BUN Creatinine Glucose POC Glucose Hemoglobin A1c Lactic Acid 6.80 H* Calcium Phosphorus Magnesium Ferritin AST ALT Alkaline Phosphatase Lactate Dehydrogenase Troponin T 0.089 H C-Reactive Protein Total Protein Albumin LDL Cholesterol Direct Urine Creatinine Urine Total Protein Salicylates Acetaminophen Crossmatch 10/29/21 10/29/21 10/29/21 15:10 15:10 15:10 WBC RBC Hgb Hct MCH RDW Plt Count Lymph % (Auto) [place] % (Auto) Lymph # (Auto) [place] # (Auto) Seg Neutrophils % Seg Neuts % (Manual) Lymphocytes % (Manual) Nucleated RBC % Seg Neutrophils # Seg Neutrophils # Man Monocytes # (Manual) PT INR APTT D-Dimer Heparin Anti-Xa Level ABG pH ABG pO2 ABG HCO3 ABG O2 Saturation ABG Base Excess ABG Hemoglobin Oxyhemoglobin Sodium 136 L Potassium 2.8 L* Chloride 93.4 L Carbon Dioxide 20 L BUN Creatinine Glucose 330 H POC Glucose Hemoglobin A1c Lactic Acid Calcium Phosphorus Magnesium Ferritin AST 1013 H ALT 1289 H Alkaline Phosphatase 246 H Lactate Dehydrogenase Troponin T C-Reactive Protein Total Protein Albumin LDL Cholesterol Direct Urine Creatinine Urine Total Protein Salicylates < 0.3 L Acetaminophen 5.0 L Crossmatch 10/29/21 10/29/21 10/29/21 15:11 16:01 19:29 WBC RBC Hgb Hct MCH RDW Plt Count Lymph % (Auto) [place] % (Auto) Lymph # (Auto) [place] # (Auto) Seg Neutrophils % Seg Neuts % (Manual) Lymphocytes % (Manual) Nucleated RBC % Seg Neutrophils # Seg Neutrophils # Man Monocytes # (Manual) PT INR APTT D-Dimer Heparin Anti-Xa Level ABG pH 7.307 L ABG pO2 64.1 L ABG HCO3 ABG O2 Saturation 90.8 L ABG Base Excess -2.9 L ABG Hemoglobin Oxyhemoglobin 89.3 L Sodium Potassium Chloride Carbon Dioxide BUN Creatinine Glucose POC Glucose Hemoglobin A1c Lactic Acid 2.60 H* Calcium Phosphorus Magnesium 2.90 H Ferritin AST ALT Alkaline Phosphatase Lactate Dehydrogenase Troponin T C-Reactive Protein Total Protein Albumin LDL Cholesterol Direct Urine Creatinine Urine Total Protein Salicylates Acetaminophen Crossmatch 10/29/21 10/29/21 10/30/21 19:40 22:34 04:30 WBC 16.2 H RBC Hgb Hct MCH 26 L RDW 15.5 H Plt Count Lymph % (Auto) 6.2 L [place] % (Auto) Lymph # (Auto) 1.0 L [place] # (Auto) 0.9 H Seg Neutrophils % 88.1 H Seg Neuts % (Manual) Lymphocytes % (Manual) Nucleated RBC % Seg Neutrophils # 14.2 H Seg Neutrophils # Man Monocytes # (Manual) PT INR APTT D-Dimer Heparin Anti-Xa Level ABG pH ABG pO2 ABG HCO3 ABG O2 Saturation ABG Base Excess ABG Hemoglobin Oxyhemoglobin Sodium Potassium Chloride Carbon Dioxide BUN Creatinine Glucose POC Glucose Hemoglobin A1c Lactic Acid Calcium Phosphorus Magnesium Ferritin AST ALT Alkaline Phosphatase Lactate Dehydrogenase Troponin T 1.950 H* D 1.150 H* D C-Reactive Protein Total Protein Albumin LDL Cholesterol Direct 43 L Urine Creatinine Urine Total Protein Salicylates Acetaminophen Crossmatch 10/30/21 10/30/21 10/30/21 04:30 04:35 05:45 WBC RBC Hgb Hct MCH RDW Plt Count Lymph % (Auto) [place] % (Auto) Lymph # (Auto) [place] # (Auto) Seg Neutrophils % Seg Neuts % (Manual) Lymphocytes % (Manual) Nucleated RBC % Seg Neutrophils # Seg Neutrophils # Man Monocytes # (Manual) PT INR APTT D-Dimer Heparin Anti-Xa Level ABG pH ABG pO2 69.5 L ABG HCO3 ABG O2 Saturation ABG Base Excess -2.7 L ABG Hemoglobin Oxyhemoglobin 94.7 L Sodium Potassium Chloride Carbon Dioxide 21 L BUN Creatinine Glucose 159 H POC Glucose 151 H Hemoglobin A1c Lactic Acid Calcium 7.9 L D Phosphorus Magnesium Ferritin AST 461 H ALT 686 H Alkaline Phosphatase 130 H Lactate Dehydrogenase Troponin T C-Reactive Protein Total Protein 5.6 L D Albumin 3.2 L LDL Cholesterol Direct Urine Creatinine Urine Total Protein Salicylates Acetaminophen Crossmatch 10/30/21 10/30/21 10/30/21 11:24 15:59 16:30 WBC RBC Hgb Hct MCH RDW Plt Count Lymph % (Auto) [place] % (Auto) Lymph # (Auto) [place] # (Auto) Seg Neutrophils % Seg Neuts % (Manual) Lymphocytes % (Manual) Nucleated RBC % Seg Neutrophils # Seg Neutrophils # Man Monocytes # (Manual) PT 17.2 H INR 1.27 H APTT 44.4 H D-Dimer Heparin Anti-Xa Level ABG pH ABG pO2 ABG HCO3 ABG O2 Saturation ABG Base Excess ABG Hemoglobin Oxyhemoglobin Sodium Potassium Chloride Carbon Dioxide BUN Creatinine Glucose POC Glucose 153 H 109 H Hemoglobin A1c Lactic Acid Calcium Phosphorus Magnesium Ferritin AST ALT Alkaline Phosphatase Lactate Dehydrogenase Troponin T C-Reactive Protein Total Protein Albumin LDL Cholesterol Direct Urine Creatinine Urine Total Protein Salicylates Acetaminophen Crossmatch 10/30/21 10/30/21 10/30/21 23:00 Unknown Unknown WBC RBC Hgb Hct MCH RDW Plt Count Lymph % (Auto) [place] % (Auto) Lymph # (Auto) [place] # (Auto) Seg Neutrophils % Seg Neuts % (Manual) Lymphocytes % (Manual) Nucleated RBC % Seg Neutrophils # Seg Neutrophils # Man Monocytes # (Manual) PT INR APTT D-Dimer > 06503 H Heparin Anti-Xa Level 0.82 H ABG pH ABG pO2 ABG HCO3 ABG O2 Saturation ABG Base Excess ABG Hemoglobin Oxyhemoglobin Sodium Potassium Chloride Carbon Dioxide BUN Creatinine Glucose POC Glucose Hemoglobin A1c Lactic Acid Calcium Phosphorus Magnesium Ferritin 208.4 H AST ALT Alkaline Phosphatase Lactate Dehydrogenase Troponin T C-Reactive Protein Total Protein Albumin LDL Cholesterol Direct Urine Creatinine Urine Total Protein Salicylates Acetaminophen Crossmatch 10/30/21 10/31/21 10/31/21 Unknown 04:30 04:30 WBC 14.4 H RBC Hgb Hct MCH 26 L RDW Plt Count Lymph % (Auto) [place] % (Auto) Lymph # (Auto) [place] # (Auto) Seg Neutrophils % Seg Neuts % (Manual) Lymphocytes % (Manual) Nucleated RBC % Seg Neutrophils # Seg Neutrophils # Man Monocytes # (Manual) PT INR APTT D-Dimer Heparin Anti-Xa Level ABG pH ABG pO2 ABG HCO3 ABG O2 Saturation ABG Base Excess ABG Hemoglobin Oxyhemoglobin Sodium Potassium 3.5 L Chloride 107.5 H Carbon Dioxide 20 L BUN 28 H Creatinine 1.7 H Glucose 113 H POC Glucose Hemoglobin A1c Lactic Acid Calcium 7.9 L Phosphorus Magnesium Ferritin AST ALT Alkaline Phosphatase Lactate Dehydrogenase 469 H Troponin T C-Reactive Protein 13.40 H Total Protein Albumin LDL Cholesterol Direct Urine Creatinine Urine Total Protein Salicylates Acetaminophen Crossmatch 10/31/21 10/31/21 10/31/21 04:30 05:11 15:30 WBC RBC Hgb Hct MCH RDW Plt Count Lymph % (Auto) [place] % (Auto) Lymph # (Auto) [place] # (Auto) Seg Neutrophils % Seg Neuts % (Manual) Lymphocytes % (Manual) Nucleated RBC % Seg Neutrophils # Seg Neutrophils # Man Monocytes # (Manual) PT INR APTT D-Dimer Heparin Anti-Xa Level ABG pH 7.222 L ABG pO2 61.5 L ABG HCO3 ABG O2 Saturation 86.2 L ABG Base Excess -6.3 L ABG Hemoglobin 11.2 L Oxyhemoglobin 84.5 L Sodium Potassium Chloride Carbon Dioxide BUN Creatinine Glucose POC Glucose 106 H Hemoglobin A1c 6.7 H Lactic Acid Calcium Phosphorus Magnesium Ferritin AST ALT Alkaline Phosphatase Lactate Dehydrogenase Troponin T C-Reactive Protein Total Protein Albumin LDL Cholesterol Direct Urine Creatinine Urine Total Protein Salicylates Acetaminophen Crossmatch 10/31/21 10/31/21 10/31/21 16:07 16:35 17:45 WBC RBC Hgb Hct MCH RDW Plt Count Lymph % (Auto) [place] % (Auto) Lymph # (Auto) [place] # (Auto) Seg Neutrophils % Seg Neuts % (Manual) Lymphocytes % (Manual) Nucleated RBC % Seg Neutrophils # Seg Neutrophils # Man Monocytes # (Manual) PT INR APTT D-Dimer Heparin Anti-Xa Level ABG pH 7.267 L ABG pO2 58.3 L ABG HCO3 ABG O2 Saturation 88.3 L ABG Base Excess -5.9 L ABG Hemoglobin 10.1 L Oxyhemoglobin 86.5 L Sodium Potassium Chloride Carbon Dioxide BUN Creatinine Glucose POC Glucose 115 H Hemoglobin A1c Lactic Acid Calcium Phosphorus Magnesium Ferritin AST ALT Alkaline Phosphatase Lactate Dehydrogenase Troponin T C-Reactive Protein Total Protein Albumin LDL Cholesterol Direct Urine Creatinine 383.6 H Urine Total Protein Salicylates Acetaminophen Crossmatch 11/01/21 11/01/21 11/01/21 00:06 05:08 06:00 WBC 12.6 H RBC 3.43 L Hgb 8.9 L Hct 28.7 L MCH 26 L RDW 15.7 H Plt Count 130 L Lymph % (Auto) [place] % (Auto) Lymph # (Auto) [place] # (Auto) Seg Neutrophils % Seg Neuts % (Manual) Lymphocytes % (Manual) Nucleated RBC % Seg Neutrophils # Seg Neutrophils # Man Monocytes # (Manual) PT INR APTT D-Dimer Heparin Anti-Xa Level ABG pH ABG pO2 ABG HCO3 ABG O2 Saturation ABG Base Excess ABG Hemoglobin Oxyhemoglobin Sodium Potassium Chloride Carbon Dioxide BUN Creatinine Glucose POC Glucose 114 H 120 H Hemoglobin A1c Lactic Acid Calcium Phosphorus Magnesium Ferritin AST ALT Alkaline Phosphatase Lactate Dehydrogenase Troponin T C-Reactive Protein Total Protein Albumin LDL Cholesterol Direct Urine Creatinine Urine Total Protein Salicylates Acetaminophen Crossmatch 11/01/21 11/01/21 11/01/21 06:00 11:43 14:00 WBC RBC Hgb Hct MCH RDW Plt Count Lymph % (Auto) [place] % (Auto) Lymph # (Auto) [place] # (Auto) Seg Neutrophils % Seg Neuts % (Manual) Lymphocytes % (Manual) Nucleated RBC % Seg Neutrophils # Seg Neutrophils # Man Monocytes # (Manual) PT INR APTT D-Dimer Heparin Anti-Xa Level ABG pH 7.349 L ABG pO2 75.6 L ABG HCO3 ABG O2 Saturation ABG Base Excess -3.9 L ABG Hemoglobin 9.8 L Oxyhemoglobin 93.5 L Sodium Potassium Chloride 114.1 H Carbon Dioxide 20 L BUN 33 H Creatinine Glucose 131 H POC Glucose 151 H Hemoglobin A1c Lactic Acid Calcium 7.7 L Phosphorus Magnesium Ferritin AST 79 H ALT 259 H Alkaline Phosphatase Lactate Dehydrogenase Troponin T C-Reactive Protein Total Protein 5.5 L Albumin 2.7 L LDL Cholesterol Direct Urine Creatinine Urine Total Protein Salicylates Acetaminophen Crossmatch 11/01/21 11/01/21 11/02/21 16:45 22:55 05:12 WBC RBC Hgb Hct MCH RDW Plt Count Lymph % (Auto) [place] % (Auto) Lymph # (Auto) [place] # (Auto) Seg Neutrophils % Seg Neuts % (Manual) Lymphocytes % (Manual) Nucleated RBC % Seg Neutrophils # Seg Neutrophils # Man Monocytes # (Manual) PT INR APTT D-Dimer Heparin Anti-Xa Level ABG pH ABG pO2 ABG HCO3 ABG O2 Saturation ABG Base Excess ABG Hemoglobin Oxyhemoglobin Sodium Potassium Chloride Carbon Dioxide BUN Creatinine Glucose POC Glucose 119 H 129 H 140 H Hemoglobin A1c Lactic Acid Calcium Phosphorus Magnesium Ferritin AST ALT Alkaline Phosphatase Lactate Dehydrogenase Troponin T C-Reactive Protein Total Protein Albumin LDL Cholesterol Direct Urine Creatinine Urine Total Protein Salicylates Acetaminophen Crossmatch 11/02/21 11/02/21 11/02/21 05:35 05:35 09:35 WBC 13.5 H RBC 3.60 L Hgb 9.7 L Hct MCH 27 L RDW 15.7 H Plt Count Lymph % (Auto) [place] % (Auto) Lymph # (Auto) [place] # (Auto) Seg Neutrophils % Seg Neuts % (Manual) Lymphocytes % (Manual) Nucleated RBC % Seg Neutrophils # Seg Neutrophils # Man Monocytes # (Manual) PT INR APTT D-Dimer Heparin Anti-Xa Level ABG pH 7.208 L ABG pO2 75.9 L ABG HCO3 ABG O2 Saturation 93.6 L ABG Base Excess -4.3 L ABG Hemoglobin 9.1 L Oxyhemoglobin 91.6 L Sodium Potassium 5.2 H D Chloride 112.6 H Carbon Dioxide BUN 32 H Creatinine Glucose 152 H POC Glucose Hemoglobin A1c Lactic Acid Calcium 8.2 L Phosphorus Magnesium 2.70 H Ferritin AST ALT Alkaline Phosphatase Lactate Dehydrogenase Troponin T C-Reactive Protein Total Protein Albumin LDL Cholesterol Direct Urine Creatinine Urine Total Protein Salicylates Acetaminophen Crossmatch 11/02/21 11/02/21 11/02/21 11:44 17:13 23:43 WBC RBC Hgb Hct MCH RDW Plt Count Lymph % (Auto) [place] % (Auto) Lymph # (Auto) [place] # (Auto) Seg Neutrophils % Seg Neuts % (Manual) Lymphocytes % (Manual) Nucleated RBC % Seg Neutrophils # Seg Neutrophils # Man Monocytes # (Manual) PT INR APTT D-Dimer Heparin Anti-Xa Level ABG pH ABG pO2 ABG HCO3 ABG O2 Saturation ABG Base Excess ABG Hemoglobin Oxyhemoglobin Sodium Potassium Chloride Carbon Dioxide BUN Creatinine Glucose POC Glucose 173 H 148 H 137 H Hemoglobin A1c Lactic Acid Calcium Phosphorus Magnesium Ferritin AST ALT Alkaline Phosphatase Lactate Dehydrogenase Troponin T C-Reactive Protein Total Protein Albumin LDL Cholesterol Direct Urine Creatinine Urine Total Protein Salicylates Acetaminophen Crossmatch 11/03/21 11/03/21 11/03/21 04:59 06:00 06:00 WBC RBC 3.43 L Hgb 9.1 L Hct 29.0 L MCH 26 L RDW 16.4 H Plt Count Lymph % (Auto) [place] % (Auto) Lymph # (Auto) [place] # (Auto) Seg Neutrophils % Seg Neuts % (Manual) Lymphocytes % (Manual) Nucleated RBC % Seg Neutrophils # Seg Neutrophils # Man Monocytes # (Manual) PT INR APTT D-Dimer Heparin Anti-Xa Level 0.17 L ABG pH ABG pO2 ABG HCO3 ABG O2 Saturation ABG Base Excess ABG Hemoglobin Oxyhemoglobin Sodium Potassium Chloride Carbon Dioxide BUN Creatinine Glucose POC Glucose 167 H Hemoglobin A1c Lactic Acid Calcium Phosphorus Magnesium Ferritin AST ALT Alkaline Phosphatase Lactate Dehydrogenase Troponin T C-Reactive Protein Total Protein Albumin LDL Cholesterol Direct Urine Creatinine Urine Total Protein Salicylates Acetaminophen Crossmatch 11/03/21 11/03/21 11/03/21 06:00 09:20 11:58 WBC RBC Hgb Hct MCH RDW Plt Count Lymph % (Auto) [place] % (Auto) Lymph # (Auto) [place] # (Auto) Seg Neutrophils % Seg Neuts % (Manual) Lymphocytes % (Manual) Nucleated RBC % Seg Neutrophils # Seg Neutrophils # Man Monocytes # (Manual) PT INR APTT D-Dimer Heparin Anti-Xa Level ABG pH 7.274 L ABG pO2 75.6 L ABG HCO3 ABG O2 Saturation 94.9 L ABG Base Excess -2.5 L ABG Hemoglobin 9.3 L Oxyhemoglobin 92.9 L Sodium 149 H Potassium Chloride 117.5 H Carbon Dioxide BUN 32 H Creatinine Glucose 173 H POC Glucose 192 H Hemoglobin A1c Lactic Acid Calcium 8.1 L Phosphorus Magnesium Ferritin AST ALT Alkaline Phosphatase Lactate Dehydrogenase Troponin T C-Reactive Protein Total Protein Albumin LDL Cholesterol Direct Urine Creatinine Urine Total Protein Salicylates Acetaminophen Crossmatch 11/03/21 11/03/21 11/04/21 18:22 Unknown 00:09 WBC RBC Hgb Hct MCH RDW Plt Count Lymph % (Auto) [place] % (Auto) Lymph # (Auto) [place] # (Auto) Seg Neutrophils % Seg Neuts % (Manual) Lymphocytes % (Manual) Nucleated RBC % Seg Neutrophils # Seg Neutrophils # Man Monocytes # (Manual) PT INR APTT D-Dimer Heparin Anti-Xa Level 0.29 L ABG pH ABG pO2 ABG HCO3 ABG O2 Saturation ABG Base Excess ABG Hemoglobin Oxyhemoglobin Sodium Potassium Chloride Carbon Dioxide BUN Creatinine Glucose POC Glucose 178 H 221 H Hemoglobin A1c Lactic Acid Calcium Phosphorus Magnesium Ferritin AST ALT Alkaline Phosphatase Lactate Dehydrogenase Troponin T C-Reactive Protein Total Protein Albumin LDL Cholesterol Direct Urine Creatinine Urine Total Protein Salicylates Acetaminophen Crossmatch 11/04/21 11/04/21 11/04/21 05:09 09:40 09:40 WBC 16.8 H RBC Hgb Hct MCH 27 L RDW 16.5 H Plt Count Lymph % (Auto) [place] % (Auto) Lymph # (Auto) [place] # (Auto) Seg Neutrophils % Seg Neuts % (Manual) Lymphocytes % (Manual) Nucleated RBC % Seg Neutrophils # Seg Neutrophils # Man Monocytes # (Manual) PT INR APTT D-Dimer Heparin Anti-Xa Level ABG pH ABG pO2 ABG HCO3 ABG O2 Saturation ABG Base Excess ABG Hemoglobin Oxyhemoglobin Sodium Potassium 5.9 H Chloride 108.5 H Carbon Dioxide BUN 54 H Creatinine 1.8 H Glucose 198 H POC Glucose 182 H Hemoglobin A1c Lactic Acid Calcium Phosphorus Magnesium 3.00 H Ferritin AST ALT Alkaline Phosphatase Lactate Dehydrogenase Troponin T C-Reactive Protein Total Protein Albumin LDL Cholesterol Direct Urine Creatinine Urine Total Protein Salicylates Acetaminophen Crossmatch 11/04/21 11/04/21 11/04/21 12:13 13:34 14:05 WBC RBC Hgb Hct MCH RDW Plt Count Lymph % (Auto) [place] % (Auto) Lymph # (Auto) [place] # (Auto) Seg Neutrophils % Seg Neuts % (Manual) Lymphocytes % (Manual) Nucleated RBC % Seg Neutrophils # Seg Neutrophils # Man Monocytes # (Manual) PT INR APTT D-Dimer Heparin Anti-Xa Level ABG pH 7.223 L ABG pO2 71.3 L ABG HCO3 ABG O2 Saturation 92.8 L ABG Base Excess ABG Hemoglobin 8.2 L Oxyhemoglobin 91.0 L Sodium Potassium Chloride Carbon Dioxide BUN Creatinine Glucose POC Glucose 184 H Hemoglobin A1c Lactic Acid Calcium Phosphorus Magnesium Ferritin AST ALT Alkaline Phosphatase Lactate Dehydrogenase Troponin T C-Reactive Protein Total Protein Albumin LDL Cholesterol Direct Urine Creatinine 184.6 H Urine Total Protein Salicylates Acetaminophen Crossmatch 11/04/21 11/04/21 11/05/21 18:02 Unknown 00:07 WBC RBC Hgb Hct MCH RDW Plt Count Lymph % (Auto) [place] % (Auto) Lymph # (Auto) [place] # (Auto) Seg Neutrophils % Seg Neuts % (Manual) Lymphocytes % (Manual) Nucleated RBC % Seg Neutrophils # Seg Neutrophils # Man Monocytes # (Manual) PT INR APTT D-Dimer Heparin Anti-Xa Level ABG pH ABG pO2 ABG HCO3 ABG O2 Saturation ABG Base Excess ABG Hemoglobin Oxyhemoglobin Sodium Potassium Chloride Carbon Dioxide BUN Creatinine Glucose POC Glucose 262 H 259 H Hemoglobin A1c Lactic Acid Calcium Phosphorus Magnesium Ferritin AST ALT Alkaline Phosphatase Lactate Dehydrogenase Troponin T C-Reactive Protein Total Protein Albumin LDL Cholesterol Direct Urine Creatinine 190.9 H Urine Total Protein 172 H Salicylates Acetaminophen Crossmatch 11/05/21 11/05/21 11/05/21 04:20 04:20 05:30 WBC 17.9 H RBC 3.64 L Hgb 9.7 L Hct MCH 27 L RDW 16.4 H Plt Count Lymph % (Auto) [place] % (Auto) Lymph # (Auto) [place] # (Auto) Seg Neutrophils % Seg Neuts % (Manual) Lymphocytes % (Manual) Nucleated RBC % Seg Neutrophils # Seg Neutrophils # Man Monocytes # (Manual) PT INR APTT D-Dimer Heparin Anti-Xa Level ABG pH ABG pO2 ABG HCO3 ABG O2 Saturation ABG Base Excess ABG Hemoglobin Oxyhemoglobin Sodium Potassium 5.6 H Chloride 108.4 H Carbon Dioxide BUN 71 H Creatinine 1.9 H Glucose 270 H POC Glucose 283 H Hemoglobin A1c Lactic Acid Calcium Phosphorus Magnesium Ferritin AST ALT Alkaline Phosphatase Lactate Dehydrogenase Troponin T C-Reactive Protein Total Protein Albumin LDL Cholesterol Direct Urine Creatinine Urine Total Protein Salicylates Acetaminophen Crossmatch 11/05/21 11/05/21 11/05/21 10:05 12:10 15:29 WBC RBC Hgb Hct MCH RDW Plt Count Lymph % (Auto) [place] % (Auto) Lymph # (Auto) [place] # (Auto) Seg Neutrophils % Seg Neuts % (Manual) Lymphocytes % (Manual) Nucleated RBC % Seg Neutrophils # Seg Neutrophils # Man Monocytes # (Manual) PT INR APTT D-Dimer Heparin Anti-Xa Level ABG pH 7.248 L ABG pO2 73.7 L ABG HCO3 26.2 H ABG O2 Saturation 93.1 L ABG Base Excess ABG Hemoglobin 8.9 L Oxyhemoglobin 91.4 L Sodium Potassium Chloride Carbon Dioxide BUN Creatinine Glucose POC Glucose 225 H 199 H Hemoglobin A1c Lactic Acid Calcium Phosphorus Magnesium Ferritin AST ALT Alkaline Phosphatase Lactate Dehydrogenase Troponin T C-Reactive Protein Total Protein Albumin LDL Cholesterol Direct Urine Creatinine Urine Total Protein Salicylates Acetaminophen Crossmatch 11/05/21 11/05/21 11/05/21 15:51 17:32 17:40 WBC RBC Hgb Hct MCH RDW Plt Count Lymph % (Auto) [place] % (Auto) Lymph # (Auto) [place] # (Auto) Seg Neutrophils % Seg Neuts % (Manual) Lymphocytes % (Manual) Nucleated RBC % Seg Neutrophils # Seg Neutrophils # Man Monocytes # (Manual) PT INR APTT D-Dimer Heparin Anti-Xa Level ABG pH ABG pO2 ABG HCO3 ABG O2 Saturation ABG Base Excess ABG Hemoglobin Oxyhemoglobin Sodium Potassium 5.2 H Chloride 107.8 H Carbon Dioxide BUN 79 H Creatinine 1.9 H Glucose 204 H POC Glucose 278 H 197 H Hemoglobin A1c Lactic Acid Calcium Phosphorus Magnesium Ferritin AST ALT Alkaline Phosphatase Lactate Dehydrogenase Troponin T C-Reactive Protein Total Protein Albumin LDL Cholesterol Direct Urine Creatinine Urine Total Protein Salicylates Acetaminophen Crossmatch 11/05/21 11/05/21 11/05/21 21:25 22:22 23:43 WBC RBC Hgb Hct MCH RDW Plt Count Lymph % (Auto) [place] % (Auto) Lymph # (Auto) [place] # (Auto) Seg Neutrophils % Seg Neuts % (Manual) Lymphocytes % (Manual) Nucleated RBC % Seg Neutrophils # Seg Neutrophils # Man Monocytes # (Manual) PT INR APTT D-Dimer Heparin Anti-Xa Level ABG pH ABG pO2 ABG HCO3 ABG O2 Saturation ABG Base Excess ABG Hemoglobin Oxyhemoglobin Sodium Potassium 5.3 H Chloride 109.2 H Carbon Dioxide BUN 81 H Creatinine 2.0 H Glucose 195 H POC Glucose 180 H 203 H Hemoglobin A1c Lactic Acid Calcium Phosphorus Magnesium Ferritin AST ALT Alkaline Phosphatase Lactate Dehydrogenase Troponin T C-Reactive Protein Total Protein Albumin LDL Cholesterol Direct Urine Creatinine Urine Total Protein Salicylates Acetaminophen Crossmatch 11/05/21 11/06/21 11/06/21 Unknown 02:35 05:09 WBC RBC Hgb Hct MCH RDW Plt Count Lymph % (Auto) [place] % (Auto) Lymph # (Auto) [place] # (Auto) Seg Neutrophils % Seg Neuts % (Manual) Lymphocytes % (Manual) Nucleated RBC % Seg Neutrophils # Seg Neutrophils # Man Monocytes # (Manual) PT INR APTT D-Dimer Heparin Anti-Xa Level ABG pH ABG pO2 ABG HCO3 ABG O2 Saturation ABG Base Excess ABG Hemoglobin Oxyhemoglobin Sodium 146 H Potassium 6.0 H Chloride 108.1 H 107.1 H Carbon Dioxide 21 L BUN 80 H 84 H Creatinine 2.0 H 2.0 H Glucose 238 H 235 H POC Glucose 215 H Hemoglobin A1c Lactic Acid Calcium Phosphorus Magnesium 2.80 H Ferritin AST ALT 77 H Alkaline Phosphatase Lactate Dehydrogenase Troponin T C-Reactive Protein Total Protein Albumin 3.0 L LDL Cholesterol Direct Urine Creatinine Urine Total Protein Salicylates Acetaminophen Crossmatch 11/06/21 11/06/21 11/06/21 05:40 08:07 08:07 WBC RBC Hgb Hct MCH RDW Plt Count Lymph % (Auto) [place] % (Auto) Lymph # (Auto) [place] # (Auto) Seg Neutrophils % Seg Neuts % (Manual) Lymphocytes % (Manual) Nucleated RBC % Seg Neutrophils # Seg Neutrophils # Man Monocytes # (Manual) PT INR APTT D-Dimer Heparin Anti-Xa Level 1.24 H ABG pH 7.311 L ABG pO2 72.8 L ABG HCO3 29.7 H ABG O2 Saturation 94.1 L ABG Base Excess ABG Hemoglobin 11.4 L Oxyhemoglobin 92.3 L Sodium Potassium 5.2 H Chloride Carbon Dioxide BUN 85 H Creatinine 2.3 H Glucose 236 H POC Glucose Hemoglobin A1c Lactic Acid Calcium Phosphorus Magnesium Ferritin AST ALT Alkaline Phosphatase Lactate Dehydrogenase Troponin T C-Reactive Protein Total Protein Albumin LDL Cholesterol Direct Urine Creatinine Urine Total Protein Salicylates Acetaminophen Crossmatch 11/06/21 11/06/21 11/06/21 12:14 12:57 14:28 WBC RBC Hgb Hct MCH RDW Plt Count Lymph % (Auto) [place] % (Auto) Lymph # (Auto) [place] # (Auto) Seg Neutrophils % Seg Neuts % (Manual) Lymphocytes % (Manual) Nucleated RBC % Seg Neutrophils # Seg Neutrophils # Man Monocytes # (Manual) PT INR APTT D-Dimer Heparin Anti-Xa Level ABG pH 7.282 L ABG pO2 72.6 L ABG HCO3 30.8 H ABG O2 Saturation 93.7 L ABG Base Excess 3.2 H ABG Hemoglobin 8.6 L Oxyhemoglobin 91.8 L Sodium Potassium Chloride Carbon Dioxide BUN 91 H Creatinine 2.6 H Glucose 259 H POC Glucose 225 H Hemoglobin A1c Lactic Acid Calcium Phosphorus Magnesium Ferritin AST ALT Alkaline Phosphatase Lactate Dehydrogenase Troponin T C-Reactive Protein Total Protein Albumin LDL Cholesterol Direct Urine Creatinine Urine Total Protein Salicylates Acetaminophen Crossmatch 11/06/21 11/06/21 11/06/21 17:28 19:20 21:30 WBC RBC Hgb Hct MCH RDW Plt Count Lymph % (Auto) [place] % (Auto) Lymph # (Auto) [place] # (Auto) Seg Neutrophils % Seg Neuts % (Manual) Lymphocytes % (Manual) Nucleated RBC % Seg Neutrophils # Seg Neutrophils # Man Monocytes # (Manual) PT INR APTT D-Dimer Heparin Anti-Xa Level 0.73 H ABG pH ABG pO2 ABG HCO3 ABG O2 Saturation ABG Base Excess ABG Hemoglobin Oxyhemoglobin Sodium Potassium Chloride Carbon Dioxide BUN 95 H Creatinine 2.9 H Glucose 233 H POC Glucose 206 H Hemoglobin A1c Lactic Acid Calcium Phosphorus Magnesium Ferritin AST ALT Alkaline Phosphatase Lactate Dehydrogenase Troponin T C-Reactive Protein Total Protein Albumin LDL Cholesterol Direct Urine Creatinine Urine Total Protein Salicylates Acetaminophen Crossmatch 11/06/21 11/07/21 11/07/21 22:56 05:06 06:30 WBC RBC Hgb Hct MCH RDW Plt Count Lymph % (Auto) [place] % (Auto) Lymph # (Auto) [place] # (Auto) Seg Neutrophils % Seg Neuts % (Manual) Lymphocytes % (Manual) Nucleated RBC % Seg Neutrophils # Seg Neutrophils # Man Monocytes # (Manual) PT INR APTT D-Dimer Heparin Anti-Xa Level ABG pH ABG pO2 ABG HCO3 ABG O2 Saturation ABG Base Excess ABG Hemoglobin Oxyhemoglobin Sodium 146 H Potassium Chloride Carbon Dioxide BUN 98 H Creatinine 2.8 H Glucose 202 H POC Glucose 215 H 172 H Hemoglobin A1c Lactic Acid Calcium Phosphorus 4.90 H D Magnesium 2.90 H Ferritin AST ALT Alkaline Phosphatase Lactate Dehydrogenase Troponin T C-Reactive Protein Total Protein Albumin LDL Cholesterol Direct Urine Creatinine Urine Total Protein Salicylates Acetaminophen Crossmatch 11/07/21 11/07/21 11/07/21 06:30 11:26 12:15 WBC 16.0 H RBC 3.06 L Hgb 8.2 L Hct 26.1 L MCH 27 L RDW 16.2 H Plt Count Lymph % (Auto) [place] % (Auto) Lymph # (Auto) [place] # (Auto) Seg Neutrophils % Seg Neuts % (Manual) 77.0 H Lymphocytes % (Manual) 11.0 L Nucleated RBC % 2.0 H Seg Neutrophils # Seg Neutrophils # Man 12.3 H Monocytes # (Manual) PT INR APTT D-Dimer Heparin Anti-Xa Level ABG pH 7.298 L ABG pO2 73.0 L ABG HCO3 33.3 H ABG O2 Saturation 94.4 L ABG Base Excess 5.8 H ABG Hemoglobin 8.2 L Oxyhemoglobin 92.7 L Sodium Potassium Chloride Carbon Dioxide BUN Creatinine Glucose POC Glucose 179 H Hemoglobin A1c Lactic Acid Calcium Phosphorus Magnesium Ferritin AST ALT Alkaline Phosphatase Lactate Dehydrogenase Troponin T C-Reactive Protein Total Protein Albumin LDL Cholesterol Direct Urine Creatinine Urine Total Protein Salicylates Acetaminophen Crossmatch 11/07/21 11/07/21 11/07/21 17:57 22:16 23:49 WBC RBC Hgb Hct MCH RDW Plt Count Lymph % (Auto) [place] % (Auto) Lymph # (Auto) [place] # (Auto) Seg Neutrophils % Seg Neuts % (Manual) Lymphocytes % (Manual) Nucleated RBC % Seg Neutrophils # Seg Neutrophils # Man Monocytes # (Manual) PT INR APTT D-Dimer Heparin Anti-Xa Level ABG pH ABG pO2 ABG HCO3 ABG O2 Saturation ABG Base Excess ABG Hemoglobin Oxyhemoglobin Sodium Potassium Chloride Carbon Dioxide BUN Creatinine Glucose POC Glucose 166 H 223 H 190 H Hemoglobin A1c Lactic Acid Calcium Phosphorus Magnesium Ferritin AST ALT Alkaline Phosphatase Lactate Dehydrogenase Troponin T C-Reactive Protein Total Protein Albumin LDL Cholesterol Direct Urine Creatinine Urine Total Protein Salicylates Acetaminophen Crossmatch 11/08/21 11/08/21 11/08/21 04:20 04:20 06:16 WBC 22.1 H RBC 3.01 L Hgb 8.1 L Hct 25.6 L MCH 27 L RDW 15.4 H Plt Count Lymph % (Auto) [place] % (Auto) Lymph # (Auto) [place] # (Auto) Seg Neutrophils % Seg Neuts % (Manual) Lymphocytes % (Manual) Nucleated RBC % Seg Neutrophils # Seg Neutrophils # Man Monocytes # (Manual) PT INR APTT D-Dimer Heparin Anti-Xa Level ABG pH ABG pO2 ABG HCO3 ABG O2 Saturation ABG Base Excess ABG Hemoglobin Oxyhemoglobin Sodium 151 H Potassium 3.1 L D Chloride 107.3 H Carbon Dioxide 31 H BUN 82 H Creatinine 1.8 H Glucose 232 H POC Glucose 198 H Hemoglobin A1c Lactic Acid Calcium 8.1 L Phosphorus Magnesium Ferritin AST ALT Alkaline Phosphatase Lactate Dehydrogenase Troponin T C-Reactive Protein Total Protein Albumin LDL Cholesterol Direct Urine Creatinine Urine Total Protein Salicylates Acetaminophen Crossmatch 11/08/21 11/08/21 11/08/21 11:38 12:00 18:29 WBC RBC Hgb Hct MCH RDW Plt Count Lymph % (Auto) [place] % (Auto) Lymph # (Auto) [place] # (Auto) Seg Neutrophils % Seg Neuts % (Manual) Lymphocytes % (Manual) Nucleated RBC % Seg Neutrophils # Seg Neutrophils # Man Monocytes # (Manual) PT INR APTT D-Dimer Heparin Anti-Xa Level ABG pH ABG pO2 ABG HCO3 ABG O2 Saturation ABG Base Excess ABG Hemoglobin Oxyhemoglobin Sodium Potassium 3.0 L Chloride Carbon Dioxide BUN Creatinine Glucose POC Glucose 190 H 211 H Hemoglobin A1c Lactic Acid Calcium Phosphorus Magnesium Ferritin AST ALT Alkaline Phosphatase Lactate Dehydrogenase Troponin T C-Reactive Protein Total Protein Albumin LDL Cholesterol Direct Urine Creatinine Urine Total Protein Salicylates Acetaminophen Crossmatch 11/08/21 11/08/21 11/09/21 21:34 21:40 00:36 WBC RBC Hgb Hct MCH RDW Plt Count Lymph % (Auto) [place] % (Auto) Lymph # (Auto) [place] # (Auto) Seg Neutrophils % Seg Neuts % (Manual) Lymphocytes % (Manual) Nucleated RBC % Seg Neutrophils # Seg Neutrophils # Man Monocytes # (Manual) PT INR APTT D-Dimer Heparin Anti-Xa Level ABG pH ABG pO2 ABG HCO3 ABG O2 Saturation ABG Base Excess ABG Hemoglobin Oxyhemoglobin Sodium 148 H Potassium 2.8 L* Chloride Carbon Dioxide 31 H BUN 68 H Creatinine 1.5 H Glucose 191 H POC Glucose 194 H 140 H Hemoglobin A1c Lactic Acid Calcium 8.2 L Phosphorus Magnesium Ferritin AST ALT Alkaline Phosphatase Lactate Dehydrogenase Troponin T C-Reactive Protein Total Protein Albumin LDL Cholesterol Direct Urine Creatinine Urine Total Protein Salicylates Acetaminophen Crossmatch 11/09/21 11/09/21 11/09/21 04:51 04:51 04:51 WBC 27.6 H RBC 3.18 L Hgb 8.4 L Hct 26.6 L MCH 27 L RDW 15.3 H Plt Count Lymph % (Auto) [place] % (Auto) Lymph # (Auto) [place] # (Auto) Seg Neutrophils % Seg Neuts % (Manual) Lymphocytes % (Manual) Nucleated RBC % Seg Neutrophils # Seg Neutrophils # Man Monocytes # (Manual) PT INR APTT D-Dimer Heparin Anti-Xa Level 0.18 L ABG pH ABG pO2 ABG HCO3 ABG O2 Saturation ABG Base Excess ABG Hemoglobin Oxyhemoglobin Sodium 148 H Potassium 2.7 L* Chloride Carbon Dioxide BUN 59 H Creatinine 1.4 H Glucose 143 H POC Glucose Hemoglobin A1c Lactic Acid Calcium 8.3 L Phosphorus Magnesium Ferritin AST ALT Alkaline Phosphatase Lactate Dehydrogenase Troponin T C-Reactive Protein Total Protein Albumin LDL Cholesterol Direct Urine Creatinine Urine Total Protein Salicylates Acetaminophen Crossmatch 11/09/21 11/09/21 11/09/21 05:52 08:45 11:00 WBC RBC Hgb Hct MCH RDW Plt Count Lymph % (Auto) [place] % (Auto) Lymph # (Auto) [place] # (Auto) Seg Neutrophils % Seg Neuts % (Manual) Lymphocytes % (Manual) Nucleated RBC % Seg Neutrophils # Seg Neutrophils # Man Monocytes # (Manual) PT INR APTT D-Dimer Heparin Anti-Xa Level ABG pH ABG pO2 73.2 L ABG HCO3 33.8 H ABG O2 Saturation ABG Base Excess 8.7 H ABG Hemoglobin 8.5 L Oxyhemoglobin 94.1 L Sodium Potassium Chloride Carbon Dioxide BUN Creatinine Glucose POC Glucose 166 H 136 H Hemoglobin A1c Lactic Acid Calcium Phosphorus Magnesium Ferritin AST ALT Alkaline Phosphatase Lactate Dehydrogenase Troponin T C-Reactive Protein Total Protein Albumin LDL Cholesterol Direct Urine Creatinine Urine Total Protein Salicylates Acetaminophen Crossmatch 11/09/21 11/09/21 11/09/21 15:48 16:10 20:31 WBC RBC Hgb Hct MCH RDW Plt Count Lymph % (Auto) [place] % (Auto) Lymph # (Auto) [place] # (Auto) Seg Neutrophils % Seg Neuts % (Manual) Lymphocytes % (Manual) Nucleated RBC % Seg Neutrophils # Seg Neutrophils # Man Monocytes # (Manual) PT INR APTT D-Dimer Heparin Anti-Xa Level ABG pH ABG pO2 ABG HCO3 ABG O2 Saturation ABG Base Excess ABG Hemoglobin Oxyhemoglobin Sodium Potassium 2.8 L* Chloride Carbon Dioxide 31 H BUN 53 H Creatinine 1.3 H Glucose 208 H POC Glucose 203 H 166 H Hemoglobin A1c Lactic Acid Calcium 7.9 L Phosphorus Magnesium Ferritin AST ALT Alkaline Phosphatase Lactate Dehydrogenase Troponin T C-Reactive Protein Total Protein Albumin LDL Cholesterol Direct Urine Creatinine Urine Total Protein Salicylates Acetaminophen Crossmatch 11/09/21 11/09/21 11/09/21 21:30 23:16 Unknown WBC RBC Hgb Hct MCH RDW Plt Count Lymph % (Auto) [place] % (Auto) Lymph # (Auto) [place] # (Auto) Seg Neutrophils % Seg Neuts % (Manual) Lymphocytes % (Manual) Nucleated RBC % Seg Neutrophils # Seg Neutrophils # Man Monocytes # (Manual) PT INR APTT D-Dimer Heparin Anti-Xa Level 0.24 L ABG pH ABG pO2 ABG HCO3 ABG O2 Saturation ABG Base Excess ABG Hemoglobin Oxyhemoglobin Sodium Potassium Chloride Carbon Dioxide BUN 52 H Creatinine 1.4 H Glucose 185 H POC Glucose 172 H Hemoglobin A1c Lactic Acid Calcium 7.8 L Phosphorus Magnesium Ferritin AST ALT Alkaline Phosphatase Lactate Dehydrogenase Troponin T C-Reactive Protein Total Protein Albumin LDL Cholesterol Direct Urine Creatinine Urine Total Protein Salicylates Acetaminophen Crossmatch 11/10/21 11/10/21 11/10/21 02:00 04:17 04:17 WBC 24.5 H RBC 2.75 L Hgb 7.5 L Hct 22.9 L MCH 27 L RDW Plt Count Lymph % (Auto) [place] % (Auto) Lymph # (Auto) [place] # (Auto) Seg Neutrophils % Seg Neuts % (Manual) Lymphocytes % (Manual) Nucleated RBC % Seg Neutrophils # Seg Neutrophils # Man Monocytes # (Manual) PT INR APTT D-Dimer Heparin Anti-Xa Level 0.26 L ABG pH ABG pO2 ABG HCO3 ABG O2 Saturation ABG Base Excess ABG Hemoglobin Oxyhemoglobin Sodium Potassium 2.9 L* Chloride Carbon Dioxide 35 H BUN 48 H Creatinine Glucose 212 H POC Glucose Hemoglobin A1c Lactic Acid Calcium 8.1 L Phosphorus Magnesium Ferritin AST ALT Alkaline Phosphatase Lactate Dehydrogenase Troponin T C-Reactive Protein Total Protein Albumin LDL Cholesterol Direct Urine Creatinine Urine Total Protein Salicylates Acetaminophen Crossmatch 11/10/21 11/10/21 11/10/21 05:01 08:39 11:03 WBC RBC Hgb Hct MCH RDW Plt Count Lymph % (Auto) [place] % (Auto) Lymph # (Auto) [place] # (Auto) Seg Neutrophils % Seg Neuts % (Manual) Lymphocytes % (Manual) Nucleated RBC % Seg Neutrophils # Seg Neutrophils # Man Monocytes # (Manual) PT INR APTT D-Dimer Heparin Anti-Xa Level 0.12 L ABG pH ABG pO2 ABG HCO3 ABG O2 Saturation ABG Base Excess ABG Hemoglobin Oxyhemoglobin Sodium Potassium Chloride Carbon Dioxide BUN Creatinine Glucose POC Glucose 203 H 152 H Hemoglobin A1c Lactic Acid Calcium Phosphorus Magnesium Ferritin AST ALT Alkaline Phosphatase Lactate Dehydrogenase Troponin T C-Reactive Protein Total Protein Albumin LDL Cholesterol Direct Urine Creatinine Urine Total Protein Salicylates Acetaminophen Crossmatch 11/10/21 11/10/21 11/10/21 12:45 15:43 21:05 WBC RBC Hgb Hct MCH RDW Plt Count Lymph % (Auto) [place] % (Auto) Lymph # (Auto) [place] # (Auto) Seg Neutrophils % Seg Neuts % (Manual) Lymphocytes % (Manual) Nucleated RBC % Seg Neutrophils # Seg Neutrophils # Man Monocytes # (Manual) PT INR APTT D-Dimer Heparin Anti-Xa Level ABG pH ABG pO2 ABG HCO3 ABG O2 Saturation ABG Base Excess ABG Hemoglobin Oxyhemoglobin Sodium 146 H Potassium 3.3 L Chloride Carbon Dioxide 31 H BUN 43 H Creatinine Glucose 155 H POC Glucose 139 H 139 H Hemoglobin A1c Lactic Acid Calcium 8.3 L Phosphorus Magnesium Ferritin AST ALT Alkaline Phosphatase Lactate Dehydrogenase Troponin T C-Reactive Protein Total Protein Albumin LDL Cholesterol Direct Urine Creatinine Urine Total Protein Salicylates Acetaminophen Crossmatch 11/10/21 11/11/21 11/11/21 23:25 03:49 03:49 WBC 22.1 H RBC 2.69 L Hgb 7.2 L Hct 22.7 L MCH 27 L RDW Plt Count Lymph % (Auto) [place] % (Auto) Lymph # (Auto) [place] # (Auto) Seg Neutrophils % Seg Neuts % (Manual) Lymphocytes % (Manual) Nucleated RBC % Seg Neutrophils # Seg Neutrophils # Man Monocytes # (Manual) PT INR APTT D-Dimer Heparin Anti-Xa Level ABG pH ABG pO2 ABG HCO3 ABG O2 Saturation ABG Base Excess ABG Hemoglobin Oxyhemoglobin Sodium Potassium Chloride Carbon Dioxide 32 H BUN 44 H Creatinine 1.3 H Glucose 173 H POC Glucose 146 H Hemoglobin A1c Lactic Acid Calcium Phosphorus Magnesium Ferritin AST ALT Alkaline Phosphatase Lactate Dehydrogenase Troponin T C-Reactive Protein Total Protein Albumin LDL Cholesterol Direct Urine Creatinine Urine Total Protein Salicylates Acetaminophen Crossmatch 11/11/21 11/11/21 11/11/21 05:03 10:50 11:32 WBC RBC Hgb Hct MCH RDW Plt Count Lymph % (Auto) [place] % (Auto) Lymph # (Auto) [place] # (Auto) Seg Neutrophils % Seg Neuts % (Manual) Lymphocytes % (Manual) Nucleated RBC % Seg Neutrophils # Seg Neutrophils # Man Monocytes # (Manual) PT INR APTT D-Dimer Heparin Anti-Xa Level ABG pH ABG pO2 ABG HCO3 ABG O2 Saturation ABG Base Excess ABG Hemoglobin Oxyhemoglobin Sodium Potassium Chloride Carbon Dioxide BUN Creatinine Glucose POC Glucose 152 H 129 H 133 H Hemoglobin A1c Lactic Acid Calcium Phosphorus Magnesium Ferritin AST ALT Alkaline Phosphatase Lactate Dehydrogenase Troponin T C-Reactive Protein Total Protein Albumin LDL Cholesterol Direct Urine Creatinine Urine Total Protein Salicylates Acetaminophen Crossmatch 11/11/21 11/11/21 11/11/21 13:53 16:31 17:13 WBC RBC Hgb Hct MCH RDW Plt Count Lymph % (Auto) [place] % (Auto) Lymph # (Auto) [place] # (Auto) Seg Neutrophils % Seg Neuts % (Manual) Lymphocytes % (Manual) Nucleated RBC % Seg Neutrophils # Seg Neutrophils # Man Monocytes # (Manual) PT INR APTT D-Dimer Heparin Anti-Xa Level ABG pH 7.475 H ABG pO2 64.1 L ABG HCO3 32.4 H ABG O2 Saturation ABG Base Excess 8.0 H ABG Hemoglobin 7.6 L Oxyhemoglobin 94.0 L Sodium Potassium Chloride Carbon Dioxide BUN Creatinine Glucose POC Glucose 116 H 125 H Hemoglobin A1c Lactic Acid Calcium Phosphorus Magnesium Ferritin AST ALT Alkaline Phosphatase Lactate Dehydrogenase Troponin T C-Reactive Protein Total Protein Albumin LDL Cholesterol Direct Urine Creatinine Urine Total Protein Salicylates Acetaminophen Crossmatch 11/11/21 11/11/21 11/12/21 20:40 23:35 03:30 WBC 17.7 H RBC 2.37 L Hgb 6.3 L Hct 20.0 L MCH 27 L RDW 15.5 H Plt Count Lymph % (Auto) [place] % (Auto) Lymph # (Auto) [place] # (Auto) Seg Neutrophils % Seg Neuts % (Manual) Lymphocytes % (Manual) Nucleated RBC % Seg Neutrophils # Seg Neutrophils # Man Monocytes # (Manual) PT INR APTT D-Dimer Heparin Anti-Xa Level 0.26 L ABG pH ABG pO2 ABG HCO3 ABG O2 Saturation ABG Base Excess ABG Hemoglobin Oxyhemoglobin Sodium Potassium Chloride Carbon Dioxide BUN Creatinine Glucose POC Glucose 118 H Hemoglobin A1c Lactic Acid Calcium Phosphorus Magnesium Ferritin AST ALT Alkaline Phosphatase Lactate Dehydrogenase Troponin T C-Reactive Protein Total Protein Albumin LDL Cholesterol Direct Urine Creatinine Urine Total Protein Salicylates Acetaminophen Crossmatch 11/12/21 11/12/21 11/12/21 03:30 04:15 11:53 WBC RBC Hgb Hct MCH RDW Plt Count Lymph % (Auto) [place] % (Auto) Lymph # (Auto) [place] # (Auto) Seg Neutrophils % Seg Neuts % (Manual) Lymphocytes % (Manual) Nucleated RBC % Seg Neutrophils # Seg Neutrophils # Man Monocytes # (Manual) PT INR APTT D-Dimer Heparin Anti-Xa Level ABG pH ABG pO2 ABG HCO3 ABG O2 Saturation ABG Base Excess ABG Hemoglobin Oxyhemoglobin Sodium Potassium Chloride Carbon Dioxide 33 H BUN 38 H Creatinine 1.3 H Glucose 102 H POC Glucose 62 L Hemoglobin A1c Lactic Acid Calcium 8.2 L Phosphorus Magnesium Ferritin AST ALT Alkaline Phosphatase Lactate Dehydrogenase Troponin T C-Reactive Protein Total Protein Albumin LDL Cholesterol Direct Urine Creatinine Urine Total Protein Salicylates Acetaminophen Crossmatch See Detail 11/12/21 11/12/21 11/12/21 17:20 19:14 23:11 WBC RBC Hgb 6.2 L Hct 19.5 L* MCH RDW Plt Count Lymph % (Auto) [place] % (Auto) Lymph # (Auto) [place] # (Auto) Seg Neutrophils % Seg Neuts % (Manual) Lymphocytes % (Manual) Nucleated RBC % Seg Neutrophils # Seg Neutrophils # Man Monocytes # (Manual) PT INR APTT D-Dimer Heparin Anti-Xa Level ABG pH ABG pO2 ABG HCO3 ABG O2 Saturation ABG Base Excess ABG Hemoglobin Oxyhemoglobin Sodium Potassium Chloride Carbon Dioxide BUN Creatinine Glucose POC Glucose 115 H 131 H Hemoglobin A1c Lactic Acid Calcium Phosphorus Magnesium Ferritin AST ALT Alkaline Phosphatase Lactate Dehydrogenase Troponin T C-Reactive Protein Total Protein Albumin LDL Cholesterol Direct Urine Creatinine Urine Total Protein Salicylates Acetaminophen Crossmatch 11/13/21 11/13/21 11/13/21 00:13 04:17 04:17 WBC 23.8 H RBC 2.84 L Hgb 7.4 L 7.8 L Hct 23.3 L 24.9 L MCH 27 L RDW 15.4 H Plt Count Lymph % (Auto) [place] % (Auto) Lymph # (Auto) [place] # (Auto) Seg Neutrophils % Seg Neuts % (Manual) Lymphocytes % (Manual) Nucleated RBC % Seg Neutrophils # Seg Neutrophils # Man Monocytes # (Manual) PT INR APTT D-Dimer Heparin Anti-Xa Level ABG pH ABG pO2 ABG HCO3 ABG O2 Saturation ABG Base Excess ABG Hemoglobin Oxyhemoglobin Sodium 146 H Potassium Chloride Carbon Dioxide BUN 44 H Creatinine 1.6 H Glucose 144 H POC Glucose Hemoglobin A1c Lactic Acid Calcium 7.9 L Phosphorus 5.10 H D Magnesium Ferritin AST ALT Alkaline Phosphatase Lactate Dehydrogenase Troponin T C-Reactive Protein Total Protein Albumin LDL Cholesterol Direct Urine Creatinine Urine Total Protein Salicylates Acetaminophen Crossmatch 11/13/21 11/13/21 11/13/21 05:52 10:54 15:57 WBC RBC Hgb Hct MCH RDW Plt Count Lymph % (Auto) [place] % (Auto) Lymph # (Auto) [place] # (Auto) Seg Neutrophils % Seg Neuts % (Manual) Lymphocytes % (Manual) Nucleated RBC % Seg Neutrophils # Seg Neutrophils # Man Monocytes # (Manual) PT INR APTT D-Dimer Heparin Anti-Xa Level ABG pH ABG pO2 ABG HCO3 ABG O2 Saturation ABG Base Excess ABG Hemoglobin Oxyhemoglobin Sodium Potassium Chloride Carbon Dioxide BUN Creatinine Glucose POC Glucose 123 H 147 H 207 H Hemoglobin A1c Lactic Acid Calcium Phosphorus Magnesium Ferritin AST ALT Alkaline Phosphatase Lactate Dehydrogenase Troponin T C-Reactive Protein Total Protein Albumin LDL Cholesterol Direct Urine Creatinine Urine Total Protein Salicylates Acetaminophen Crossmatch 11/13/21 11/13/21 11/14/21 16:01 23:18 04:55 WBC 23.9 H RBC 2.86 L Hgb 6.5 L 8.3 L Hct 20.3 L 24.5 L MCH RDW Plt Count Lymph % (Auto) [place] % (Auto) Lymph # (Auto) [place] # (Auto) Seg Neutrophils % Seg Neuts % (Manual) Lymphocytes % (Manual) Nucleated RBC % Seg Neutrophils # Seg Neutrophils # Man Monocytes # (Manual) PT INR APTT D-Dimer Heparin Anti-Xa Level ABG pH ABG pO2 ABG HCO3 ABG O2 Saturation ABG Base Excess ABG Hemoglobin Oxyhemoglobin Sodium Potassium Chloride Carbon Dioxide BUN Creatinine Glucose POC Glucose 209 H Hemoglobin A1c Lactic Acid Calcium Phosphorus Magnesium Ferritin AST ALT Alkaline Phosphatase Lactate Dehydrogenase Troponin T C-Reactive Protein Total Protein Albumin LDL Cholesterol Direct Urine Creatinine Urine Total Protein Salicylates Acetaminophen Crossmatch 11/14/21 11/14/21 11/14/21 04:55 05:09 11:35 WBC RBC Hgb Hct MCH RDW Plt Count Lymph % (Auto) [place] % (Auto) Lymph # (Auto) [place] # (Auto) Seg Neutrophils % Seg Neuts % (Manual) Lymphocytes % (Manual) Nucleated RBC % Seg Neutrophils # Seg Neutrophils # Man Monocytes # (Manual) PT INR APTT D-Dimer Heparin Anti-Xa Level ABG pH ABG pO2 ABG HCO3 ABG O2 Saturation ABG Base Excess ABG Hemoglobin Oxyhemoglobin Sodium 148 H Potassium Chloride 109.0 H Carbon Dioxide BUN 42 H Creatinine 1.6 H Glucose 184 H POC Glucose 169 H 154 H Hemoglobin A1c Lactic Acid Calcium 8.0 L Phosphorus Magnesium Ferritin AST ALT Alkaline Phosphatase Lactate Dehydrogenase Troponin T C-Reactive Protein Total Protein Albumin LDL Cholesterol Direct Urine Creatinine Urine Total Protein Salicylates Acetaminophen Crossmatch 11/14/21 11/14/21 11/15/21 16:57 23:11 04:36 WBC RBC Hgb Hct MCH RDW Plt Count Lymph % (Auto) [place] % (Auto) Lymph # (Auto) [place] # (Auto) Seg Neutrophils % Seg Neuts % (Manual) Lymphocytes % (Manual) Nucleated RBC % Seg Neutrophils # Seg Neutrophils # Man Monocytes # (Manual) PT INR APTT D-Dimer Heparin Anti-Xa Level ABG pH ABG pO2 ABG HCO3 ABG O2 Saturation ABG Base Excess ABG Hemoglobin Oxyhemoglobin Sodium 151 H Potassium Chloride 111.2 H Carbon Dioxide BUN 36 H Creatinine 1.3 H Glucose 136 H POC Glucose 124 H 118 H Hemoglobin A1c Lactic Acid Calcium 8.1 L Phosphorus Magnesium Ferritin AST ALT Alkaline Phosphatase Lactate Dehydrogenase Troponin T C-Reactive Protein Total Protein Albumin LDL Cholesterol Direct Urine Creatinine Urine Total Protein Salicylates Acetaminophen Crossmatch 11/15/21 11/15/21 11/16/21 11:18 21:49 00:15 WBC RBC Hgb Hct MCH RDW Plt Count Lymph % (Auto) [place] % (Auto) Lymph # (Auto) [place] # (Auto) Seg Neutrophils % Seg Neuts % (Manual) Lymphocytes % (Manual) Nucleated RBC % Seg Neutrophils # Seg Neutrophils # Man Monocytes # (Manual) PT INR APTT D-Dimer Heparin Anti-Xa Level ABG pH ABG pO2 ABG HCO3 ABG O2 Saturation ABG Base Excess ABG Hemoglobin Oxyhemoglobin Sodium Potassium Chloride Carbon Dioxide BUN Creatinine Glucose POC Glucose 154 H 154 H 146 H Hemoglobin A1c Lactic Acid Calcium Phosphorus Magnesium Ferritin AST ALT Alkaline Phosphatase Lactate Dehydrogenase Troponin T C-Reactive Protein Total Protein Albumin LDL Cholesterol Direct Urine Creatinine Urine Total Protein Salicylates Acetaminophen Crossmatch 11/16/21 11/16/21 11/16/21 05:11 05:11 05:37 WBC 18.2 H RBC 2.92 L Hgb 8.3 L Hct 26.1 L MCH RDW 15.8 H Plt Count Lymph % (Auto) 6.3 L [place] % (Auto) 10.2 H Lymph # (Auto) [place] # (Auto) 1.9 H Seg Neutrophils % 81.7 H Seg Neuts % (Manual) Lymphocytes % (Manual) Nucleated RBC % Seg Neutrophils # 14.9 H Seg Neutrophils # Man Monocytes # (Manual) PT INR APTT D-Dimer Heparin Anti-Xa Level ABG pH ABG pO2 ABG HCO3 ABG O2 Saturation ABG Base Excess ABG Hemoglobin Oxyhemoglobin Sodium 146 H Potassium Chloride 108.0 H Carbon Dioxide BUN 25 H Creatinine Glucose 123 H POC Glucose 109 H Hemoglobin A1c Lactic Acid Calcium 7.8 L Phosphorus Magnesium Ferritin AST ALT Alkaline Phosphatase Lactate Dehydrogenase Troponin T C-Reactive Protein Total Protein Albumin LDL Cholesterol Direct Urine Creatinine Urine Total Protein Salicylates Acetaminophen Crossmatch 11/16/21 11/16/21 11/17/21 11:22 23:55 04:33 WBC RBC Hgb Hct MCH RDW Plt Count Lymph % (Auto) [place] % (Auto) Lymph # (Auto) [place] # (Auto) Seg Neutrophils % Seg Neuts % (Manual) Lymphocytes % (Manual) Nucleated RBC % Seg Neutrophils # Seg Neutrophils # Man Monocytes # (Manual) PT INR APTT D-Dimer Heparin Anti-Xa Level ABG pH ABG pO2 ABG HCO3 ABG O2 Saturation ABG Base Excess ABG Hemoglobin Oxyhemoglobin Sodium Potassium Chloride Carbon Dioxide BUN 20 H Creatinine Glucose POC Glucose 136 H 113 H Hemoglobin A1c Lactic Acid Calcium 7.5 L Phosphorus Magnesium Ferritin AST ALT Alkaline Phosphatase Lactate Dehydrogenase Troponin T C-Reactive Protein Total Protein Albumin LDL Cholesterol Direct Urine Creatinine Urine Total Protein Salicylates Acetaminophen Crossmatch 11/17/21 11/18/21 11/18/21 23:22 04:53 04:53 WBC 13.0 H RBC 2.99 L Hgb 8.5 L Hct 26.4 L MCH RDW Plt Count Lymph % (Auto) 9.5 L [place] % (Auto) 9.8 H Lymph # (Auto) [place] # (Auto) 1.3 H Seg Neutrophils % 78.3 H Seg Neuts % (Manual) Lymphocytes % (Manual) Nucleated RBC % Seg Neutrophils # 10.2 H Seg Neutrophils # Man Monocytes # (Manual) PT INR APTT D-Dimer Heparin Anti-Xa Level ABG pH ABG pO2 ABG HCO3 ABG O2 Saturation ABG Base Excess ABG Hemoglobin Oxyhemoglobin Sodium Potassium Chloride Carbon Dioxide BUN 18 H Creatinine Glucose 106 H POC Glucose 112 H Hemoglobin A1c Lactic Acid Calcium 8.1 L Phosphorus Magnesium Ferritin AST ALT Alkaline Phosphatase Lactate Dehydrogenase Troponin T C-Reactive Protein Total Protein Albumin LDL Cholesterol Direct Urine Creatinine Urine Total Protein Salicylates Acetaminophen Crossmatch 11/18/21 11/18/21 11/19/21 11:35 17:42 14:38 WBC RBC Hgb Hct MCH RDW Plt Count Lymph % (Auto) [place] % (Auto) Lymph # (Auto) [place] # (Auto) Seg Neutrophils % Seg Neuts % (Manual) Lymphocytes % (Manual) Nucleated RBC % Seg Neutrophils # Seg Neutrophils # Man Monocytes # (Manual) PT INR APTT D-Dimer Heparin Anti-Xa Level ABG pH ABG pO2 ABG HCO3 ABG O2 Saturation ABG Base Excess ABG Hemoglobin Oxyhemoglobin Sodium Potassium Chloride 97.5 L Carbon Dioxide 31 H BUN Creatinine Glucose 146 H POC Glucose 143 H 132 H Hemoglobin A1c Lactic Acid Calcium Phosphorus Magnesium 1.60 L Ferritin AST ALT Alkaline Phosphatase Lactate Dehydrogenase Troponin T C-Reactive Protein Total Protein Albumin LDL Cholesterol Direct Urine Creatinine Urine Total Protein Salicylates Acetaminophen Crossmatch 11/19/21 11/19/21 11/20/21 16:24 23:58 07:42 WBC RBC 3.01 L Hgb 8.6 L Hct 26.7 L MCH RDW 15.4 H Plt Count Lymph % (Auto) [place] % (Auto) Lymph # (Auto) [place] # (Auto) Seg Neutrophils % Seg Neuts % (Manual) Lymphocytes % (Manual) Nucleated RBC % Seg Neutrophils # Seg Neutrophils # Man Monocytes # (Manual) PT INR APTT D-Dimer Heparin Anti-Xa Level ABG pH ABG pO2 ABG HCO3 ABG O2 Saturation ABG Base Excess ABG Hemoglobin Oxyhemoglobin Sodium Potassium Chloride Carbon Dioxide BUN Creatinine Glucose POC Glucose 129 H 125 H Hemoglobin A1c Lactic Acid Calcium Phosphorus Magnesium Ferritin AST ALT Alkaline Phosphatase Lactate Dehydrogenase Troponin T C-Reactive Protein Total Protein Albumin LDL Cholesterol Direct Urine Creatinine Urine Total Protein Salicylates Acetaminophen Crossmatch 11/20/21 11/20/21 11/20/21 07:42 11:25 22:59 WBC RBC Hgb Hct MCH RDW Plt Count Lymph % (Auto) [place] % (Auto) Lymph # (Auto) [place] # (Auto) Seg Neutrophils % Seg Neuts % (Manual) Lymphocytes % (Manual) Nucleated RBC % Seg Neutrophils # Seg Neutrophils # Man Monocytes # (Manual) PT INR APTT D-Dimer Heparin Anti-Xa Level ABG pH ABG pO2 ABG HCO3 ABG O2 Saturation ABG Base Excess ABG Hemoglobin Oxyhemoglobin Sodium Potassium Chloride Carbon Dioxide 31 H BUN Creatinine Glucose POC Glucose 116 H 113 H Hemoglobin A1c Lactic Acid Calcium Phosphorus Magnesium Ferritin AST ALT Alkaline Phosphatase Lactate Dehydrogenase Troponin T C-Reactive Protein Total Protein Albumin LDL Cholesterol Direct Urine Creatinine Urine Total Protein Salicylates Acetaminophen Crossmatch 11/21/21 11/22/21 11/22/21 10:50 05:10 16:12 WBC RBC Hgb Hct MCH RDW Plt Count Lymph % (Auto) [place] % (Auto) Lymph # (Auto) [place] # (Auto) Seg Neutrophils % Seg Neuts % (Manual) Lymphocytes % (Manual) Nucleated RBC % Seg Neutrophils # Seg Neutrophils # Man Monocytes # (Manual) PT INR APTT D-Dimer Heparin Anti-Xa Level ABG pH ABG pO2 ABG HCO3 ABG O2 Saturation ABG Base Excess ABG Hemoglobin Oxyhemoglobin Sodium Potassium Chloride Carbon Dioxide 32 H BUN Creatinine Glucose POC Glucose 156 H 110 H Hemoglobin A1c Lactic Acid Calcium 8.1 L Phosphorus Magnesium Ferritin AST ALT Alkaline Phosphatase Lactate Dehydrogenase Troponin T C-Reactive Protein Total Protein Albumin LDL Cholesterol Direct Urine Creatinine Urine Total Protein Salicylates Acetaminophen Crossmatch 11/23/21 11/23/21 11/23/21 07:18 07:18 11:45 WBC RBC 3.23 L Hgb 9.1 L Hct 28.5 L MCH RDW 15.6 H Plt Count Lymph % (Auto) [place] % (Auto) Lymph # (Auto) [place] # (Auto) Seg Neutrophils % Seg Neuts % (Manual) Lymphocytes % (Manual) Nucleated RBC % Seg Neutrophils # Seg Neutrophils # Man Monocytes # (Manual) PT INR APTT D-Dimer Heparin Anti-Xa Level ABG pH ABG pO2 ABG HCO3 ABG O2 Saturation ABG Base Excess ABG Hemoglobin Oxyhemoglobin Sodium Potassium 3.3 L Chloride 96.8 L Carbon Dioxide 32 H BUN Creatinine Glucose POC Glucose 140 H Hemoglobin A1c Lactic Acid Calcium Phosphorus Magnesium Ferritin AST ALT Alkaline Phosphatase Lactate Dehydrogenase Troponin T C-Reactive Protein Total Protein Albumin LDL Cholesterol Direct Urine Creatinine Urine Total Protein Salicylates Acetaminophen Crossmatch 11/23/21 11/23/21 11/24/21 16:40 23:45 07:19 WBC RBC 3.12 L Hgb 9.3 L Hct 27.2 L MCH RDW 16.0 H Plt Count Lymph % (Auto) 10.3 L [place] % (Auto) 10.0 H Lymph # (Auto) 1.1 L [place] # (Auto) 1.1 H Seg Neutrophils % 75.2 H Seg Neuts % (Manual) Lymphocytes % (Manual) Nucleated RBC % Seg Neutrophils # 7.9 H Seg Neutrophils # Man Monocytes # (Manual) PT INR APTT D-Dimer Heparin Anti-Xa Level ABG pH ABG pO2 ABG HCO3 ABG O2 Saturation ABG Base Excess ABG Hemoglobin Oxyhemoglobin Sodium Potassium Chloride Carbon Dioxide BUN Creatinine Glucose POC Glucose 140 H 138 H Hemoglobin A1c Lactic Acid Calcium Phosphorus Magnesium Ferritin AST ALT Alkaline Phosphatase Lactate Dehydrogenase Troponin T C-Reactive Protein Total Protein Albumin LDL Cholesterol Direct Urine Creatinine Urine Total Protein Salicylates Acetaminophen Crossmatch 11/24/21 11/24/21 11/24/21 07:19 11:49 15:54 WBC RBC Hgb Hct MCH RDW Plt Count Lymph % (Auto) [place] % (Auto) Lymph # (Auto) [place] # (Auto) Seg Neutrophils % Seg Neuts % (Manual) Lymphocytes % (Manual) Nucleated RBC % Seg Neutrophils # Seg Neutrophils # Man Monocytes # (Manual) PT INR APTT D-Dimer Heparin Anti-Xa Level ABG pH ABG pO2 ABG HCO3 ABG O2 Saturation ABG Base Excess ABG Hemoglobin Oxyhemoglobin Sodium Potassium 3.2 L Chloride 96.7 L Carbon Dioxide BUN Creatinine Glucose 125 H POC Glucose 118 H 106 H Hemoglobin A1c Lactic Acid Calcium Phosphorus Magnesium Ferritin AST ALT Alkaline Phosphatase Lactate Dehydrogenase Troponin T C-Reactive Protein Total Protein Albumin LDL Cholesterol Direct Urine Creatinine Urine Total Protein Salicylates Acetaminophen Crossmatch 11/25/21 11/25/21 11/25/21 11:49 15:41 20:51 WBC RBC Hgb Hct MCH RDW Plt Count Lymph % (Auto) [place] % (Auto) Lymph # (Auto) [place] # (Auto) Seg Neutrophils % Seg Neuts % (Manual) Lymphocytes % (Manual) Nucleated RBC % Seg Neutrophils # Seg Neutrophils # Man Monocytes # (Manual) PT INR APTT D-Dimer Heparin Anti-Xa Level ABG pH ABG pO2 ABG HCO3 ABG O2 Saturation ABG Base Excess ABG Hemoglobin Oxyhemoglobin Sodium Potassium Chloride Carbon Dioxide BUN Creatinine Glucose POC Glucose 119 H 110 H 109 H Hemoglobin A1c Lactic Acid Calcium Phosphorus Magnesium Ferritin AST ALT Alkaline Phosphatase Lactate Dehydrogenase Troponin T C-Reactive Protein Total Protein Albumin LDL Cholesterol Direct Urine Creatinine Urine Total Protein Salicylates Acetaminophen Crossmatch 11/26/21 11/26/21 11/26/21 07:33 11:20 17:03 WBC RBC Hgb Hct MCH RDW Plt Count Lymph % (Auto) [place] % (Auto) Lymph # (Auto) [place] # (Auto) Seg Neutrophils % Seg Neuts % (Manual) Lymphocytes % (Manual) Nucleated RBC % Seg Neutrophils # Seg Neutrophils # Man Monocytes # (Manual) PT INR APTT D-Dimer Heparin Anti-Xa Level ABG pH ABG pO2 ABG HCO3 ABG O2 Saturation ABG Base Excess ABG Hemoglobin Oxyhemoglobin Sodium Potassium Chloride Carbon Dioxide BUN Creatinine Glucose POC Glucose 158 H 162 H 144 H Hemoglobin A1c Lactic Acid Calcium Phosphorus Magnesium Ferritin AST ALT Alkaline Phosphatase Lactate Dehydrogenase Troponin T C-Reactive Protein Total Protein Albumin LDL Cholesterol Direct Urine Creatinine Urine Total Protein Salicylates Acetaminophen Crossmatch 11/26/21 11/27/21 11/27/21 21:51 07:44 12:20 WBC RBC Hgb Hct MCH RDW Plt Count Lymph % (Auto) [place] % (Auto) Lymph # (Auto) [place] # (Auto) Seg Neutrophils % Seg Neuts % (Manual) Lymphocytes % (Manual) Nucleated RBC % Seg Neutrophils # Seg Neutrophils # Man Monocytes # (Manual) PT INR APTT D-Dimer Heparin Anti-Xa Level ABG pH ABG pO2 ABG HCO3 ABG O2 Saturation ABG Base Excess ABG Hemoglobin Oxyhemoglobin Sodium Potassium Chloride Carbon Dioxide BUN Creatinine Glucose POC Glucose 132 H 129 H 128 H Hemoglobin A1c Lactic Acid Calcium Phosphorus Magnesium Ferritin AST ALT Alkaline Phosphatase Lactate Dehydrogenase Troponin T C-Reactive Protein Total Protein Albumin LDL Cholesterol Direct Urine Creatinine Urine Total Protein Salicylates Acetaminophen Crossmatch 11/27/21 11/27/21 11/28/21 16:44 21:35 07:54 WBC RBC Hgb Hct MCH RDW Plt Count Lymph % (Auto) [place] % (Auto) Lymph # (Auto) [place] # (Auto) Seg Neutrophils % Seg Neuts % (Manual) Lymphocytes % (Manual) Nucleated RBC % Seg Neutrophils # Seg Neutrophils # Man Monocytes # (Manual) PT INR APTT D-Dimer Heparin Anti-Xa Level ABG pH ABG pO2 ABG HCO3 ABG O2 Saturation ABG Base Excess ABG Hemoglobin Oxyhemoglobin Sodium Potassium Chloride Carbon Dioxide BUN Creatinine Glucose POC Glucose 126 H 131 H 124 H Hemoglobin A1c Lactic Acid Calcium Phosphorus Magnesium Ferritin AST ALT Alkaline Phosphatase Lactate Dehydrogenase Troponin T C-Reactive Protein Total Protein Albumin LDL Cholesterol Direct Urine Creatinine Urine Total Protein Salicylates Acetaminophen Crossmatch 11/28/21 11/28/21 11/28/21 11:27 11:56 16:34 WBC 12.3 H RBC 3.18 L Hgb 9.2 L Hct 27.8 L MCH RDW 16.1 H Plt Count Lymph % (Auto) 10.9 L [place] % (Auto) 13.7 H Lymph # (Auto) [place] # (Auto) 1.7 H Seg Neutrophils % 72.2 H Seg Neuts % (Manual) Lymphocytes % (Manual) Nucleated RBC % Seg Neutrophils # 8.9 H Seg Neutrophils # Man Monocytes # (Manual) PT INR APTT D-Dimer Heparin Anti-Xa Level ABG pH ABG pO2 ABG HCO3 ABG O2 Saturation ABG Base Excess ABG Hemoglobin Oxyhemoglobin Sodium Potassium Chloride Carbon Dioxide BUN Creatinine Glucose POC Glucose 131 H 123 H Hemoglobin A1c Lactic Acid Calcium Phosphorus Magnesium Ferritin AST ALT Alkaline Phosphatase Lactate Dehydrogenase Troponin T C-Reactive Protein Total Protein Albumin LDL Cholesterol Direct Urine Creatinine Urine Total Protein Salicylates Acetaminophen Crossmatch 11/28/21 11/28/21 11/29/21 19:35 21:32 07:33 WBC RBC Hgb Hct MCH RDW Plt Count Lymph % (Auto) [place] % (Auto) Lymph # (Auto) [place] # (Auto) Seg Neutrophils % Seg Neuts % (Manual) Lymphocytes % (Manual) Nucleated RBC % Seg Neutrophils # Seg Neutrophils # Man Monocytes # (Manual) PT INR APTT D-Dimer Heparin Anti-Xa Level 0.12 L ABG pH ABG pO2 ABG HCO3 ABG O2 Saturation ABG Base Excess ABG Hemoglobin Oxyhemoglobin Sodium Potassium Chloride Carbon Dioxide BUN Creatinine Glucose POC Glucose 110 H 108 H Hemoglobin A1c Lactic Acid Calcium Phosphorus Magnesium Ferritin AST ALT Alkaline Phosphatase Lactate Dehydrogenase Troponin T C-Reactive Protein Total Protein Albumin LDL Cholesterol Direct Urine Creatinine Urine Total Protein Salicylates Acetaminophen Crossmatch 11/29/21 11/29/21 11/29/21 11:29 13:51 15:25 WBC 13.0 H RBC 3.41 L Hgb 9.5 L Hct 29.9 L MCH RDW 16.2 H Plt Count Lymph % (Auto) 11.1 L [place] % (Auto) 15.5 H Lymph # (Auto) [place] # (Auto) 2.0 H Seg Neutrophils % 71.8 H Seg Neuts % (Manual) Lymphocytes % (Manual) Nucleated RBC % Seg Neutrophils # 9.3 H Seg Neutrophils # Man Monocytes # (Manual) PT INR APTT D-Dimer Heparin Anti-Xa Level ABG pH ABG pO2 ABG HCO3 ABG O2 Saturation ABG Base Excess ABG Hemoglobin Oxyhemoglobin Sodium Potassium Chloride Carbon Dioxide BUN Creatinine Glucose POC Glucose 136 H 123 H Hemoglobin A1c Lactic Acid Calcium Phosphorus Magnesium Ferritin AST ALT Alkaline Phosphatase Lactate Dehydrogenase Troponin T C-Reactive Protein Total Protein Albumin LDL Cholesterol Direct Urine Creatinine Urine Total Protein Salicylates Acetaminophen Crossmatch 11/29/21 11/29/21 11/29/21 18:50 18:50 20:16 WBC RBC Hgb Hct MCH RDW Plt Count Lymph % (Auto) [place] % (Auto) Lymph # (Auto) [place] # (Auto) Seg Neutrophils % Seg Neuts % (Manual) Lymphocytes % (Manual) Nucleated RBC % Seg Neutrophils # Seg Neutrophils # Man Monocytes # (Manual) PT INR APTT D-Dimer Heparin Anti-Xa Level 0.21 L ABG pH ABG pO2 ABG HCO3 ABG O2 Saturation ABG Base Excess ABG Hemoglobin Oxyhemoglobin Sodium 126 L Potassium Chloride 86.3 L Carbon Dioxide BUN 38 H Creatinine 3.6 H Glucose 153 H POC Glucose 166 H Hemoglobin A1c Lactic Acid Calcium Phosphorus Magnesium Ferritin AST ALT Alkaline Phosphatase Lactate Dehydrogenase Troponin T C-Reactive Protein Total Protein Albumin LDL Cholesterol Direct Urine Creatinine Urine Total Protein Salicylates Acetaminophen Crossmatch 11/30/21 11/30/21 11/30/21 05:14 07:35 11:15 WBC RBC Hgb 8.7 L Hct 26.8 L MCH RDW Plt Count Lymph % (Auto) [place] % (Auto) Lymph # (Auto) [place] # (Auto) Seg Neutrophils % Seg Neuts % (Manual) Lymphocytes % (Manual) Nucleated RBC % Seg Neutrophils # Seg Neutrophils # Man Monocytes # (Manual) PT INR APTT D-Dimer Heparin Anti-Xa Level ABG pH ABG pO2 ABG HCO3 ABG O2 Saturation ABG Base Excess ABG Hemoglobin Oxyhemoglobin Sodium Potassium Chloride Carbon Dioxide BUN Creatinine Glucose POC Glucose 114 H 119 H Hemoglobin A1c Lactic Acid Calcium Phosphorus Magnesium Ferritin AST ALT Alkaline Phosphatase Lactate Dehydrogenase Troponin T C-Reactive Protein Total Protein Albumin LDL Cholesterol Direct Urine Creatinine Urine Total Protein Salicylates Acetaminophen Crossmatch 11/30/21 11/30/21 11/30/21 15:26 17:10 18:51 WBC RBC Hgb Hct MCH RDW Plt Count Lymph % (Auto) [place] % (Auto) Lymph # (Auto) [place] # (Auto) Seg Neutrophils % Seg Neuts % (Manual) Lymphocytes % (Manual) Nucleated RBC % Seg Neutrophils # Seg Neutrophils # Man Monocytes # (Manual) PT INR APTT D-Dimer Heparin Anti-Xa Level 0.10 L ABG pH ABG pO2 ABG HCO3 ABG O2 Saturation ABG Base Excess ABG Hemoglobin Oxyhemoglobin Sodium 126 L Potassium Chloride 86.5 L Carbon Dioxide BUN 42 H Creatinine 4.0 H Glucose 155 H POC Glucose 157 H Hemoglobin A1c Lactic Acid Calcium 8.0 L Phosphorus Magnesium Ferritin AST ALT Alkaline Phosphatase Lactate Dehydrogenase Troponin T C-Reactive Protein Total Protein Albumin LDL Cholesterol Direct Urine Creatinine Urine Total Protein Salicylates Acetaminophen Crossmatch 11/30/21 12/01/21 12/01/21 20:04 00:39 09:38 WBC 25.2 H RBC 3.06 L Hgb 8.5 L Hct 26.8 L MCH RDW 16.1 H Plt Count Lymph % (Auto) [place] % (Auto) Lymph # (Auto) [place] # (Auto) Seg Neutrophils % Seg Neuts % (Manual) 80.0 H Lymphocytes % (Manual) 9.0 L Nucleated RBC % Seg Neutrophils # Seg Neutrophils # Man 20.2 H Monocytes # (Manual) 1.3 H PT INR APTT D-Dimer Heparin Anti-Xa Level 0.18 L ABG pH ABG pO2 ABG HCO3 ABG O2 Saturation ABG Base Excess ABG Hemoglobin Oxyhemoglobin Sodium Potassium Chloride Carbon Dioxide BUN Creatinine Glucose POC Glucose 115 H Hemoglobin A1c Lactic Acid Calcium Phosphorus Magnesium Ferritin AST ALT Alkaline Phosphatase Lactate Dehydrogenase Troponin T C-Reactive Protein Total Protein Albumin LDL Cholesterol Direct Urine Creatinine Urine Total Protein Salicylates Acetaminophen Crossmatch 12/01/21 12/01/21 09:38 11:35 WBC RBC Hgb Hct MCH RDW Plt Count Lymph % (Auto) [place] % (Auto) Lymph # (Auto) [place] # (Auto) Seg Neutrophils % Seg Neuts % (Manual) Lymphocytes % (Manual) Nucleated RBC % Seg Neutrophils # Seg Neutrophils # Man Monocytes # (Manual) PT INR APTT D-Dimer Heparin Anti-Xa Level ABG pH ABG pO2 ABG HCO3 ABG O2 Saturation ABG Base Excess ABG Hemoglobin Oxyhemoglobin Sodium 127 L Potassium 5.1 H Chloride 87.9 L Carbon Dioxide BUN 49 H Creatinine 4.9 H Glucose 134 H POC Glucose 109 H Hemoglobin A1c Lactic Acid Calcium 7.9 L Phosphorus Magnesium Ferritin AST ALT Alkaline Phosphatase Lactate Dehydrogenase Troponin T C-Reactive Protein Total Protein Albumin LDL Cholesterol Direct Urine Creatinine Urine Total Protein Salicylates Acetaminophen Crossmatch Allied health notes reviewed: nursing
[2021-12-01] MEDS: INSULIN LISPRO 100 UNIT/ML SUB-Q SCH ×3 (12:29→22:30)
[2021-12-01] MEDS ORDERED: HEPARIN/NS 5000 UNIT/500ML 500 ML IR ONE (13:08)
[2021-12-01] MEDS ORDERED: HEPARIN 10,000 UNITS/10 ML VIAL ONE (13:08)
[2021-12-01] MEDS ORDERED: LIDOCAINE (2%) 20 MG/1 ML VIAL 20 ML MDV INFILTRATI ONE (13:08)
[2021-12-01] MEDS ORDERED: SODIUM CHLORIDE 0.9% 500 ML 500 ML ONE (13:09)
--- NOTE | 2021-12-01 13:10 | Cat Scan Report ---
CT angio abdomen pelvis, CT angio chest INDICATION / CLINICAL INFORMATION: Hypotension, tachycardia, chest pain and abdominal pain. Recent cardiac arrest TECHNIQUE: Axial CT images were obtained after injection of 100 mL Omnipaque 300 IV contrast using CTA protocol. 3 plane MIP / 3D reconstructions were produced. All CT scans at this location are performed using CT dose reduction for ALARA by means of automated exposure control. COMPARISON: None available. FINDINGS: CTA of chest: The exam is limited secondary to respiratory motion artifact. Low lung volumes. No cent ral pulmonary thromboembolus is identified. The thoracic aorta is grossly unremarkable without aneury sm or dissection. Mild bibasilar atelectasis are present. Incidentally there are multiple healing ant erior rib fractures involving the first, second, third, fourth, fifth, sixth and seventh ribs bilater ally. There is a nondisplaced fracture involving the left eighth rib. CTA abdomen and pelvis: The abdominal aorta demonstrates mild scattered atherosclerotic calcification. No aneurysm or dissect ion of the abdominal aorta. The celiac and SMA arteries are grossly patent. The QUIN is patent. Both c ommon and external iliac arteries are grossly patent with only minimal atherosclerotic calcification. IVC filter noted just inferior to the renal veins. There is a large heterogeneous collection within the left retroperitoneum that extends from the level of the inferior left kidney to the lower pelvis measuring about 17 x 16 x 10 cm. This collection is inseparable from the adjacent left iliopsoas muscle. No active extravasation of contrast on the arter ial images are identified. Shotty nodes are present throughout much of the retroperitoneum. Multiple nonobstructive calculi are present within both kidneys. No hydronephrosis identified. No evidence of renal artery stenosis. Overlying monitors cause severe streak artifact of the upper abdomen. There is increased anasarca and prominent edema along the left flank. There is abnormal thickening and mucosal edema involving the ascending colon. The uterus is unremarkable. Urinary bladder is collapsed by Gregory catheter. Review of bone windows de monstrates thoracolumbar degenerative changes. IMPRESSION: 1. Large subacute appearing left-sided retroperitoneal hematoma, as above measuring 17 x 16 x 10 cm. The hematoma appears to extrude laterally along the left flank and abdominal wall where there is a se parate hematoma measuring about 14 x 12 x 5 cm. No active extravasation of arterial contrast is ident ified. 2. Multiple anterior rib fractures involving the first through seventh ribs bilaterally, as outlined above, likely related to recent cardiac arrest. Signer Name: Humble Llanos MD Signed: 12/01/2021 1:06 PM Workstation Name: [id number]
--- NOTE | 2021-12-01 14:32 | Operative Report ---
Operative Report Operative Report: Exam: Ultrasound fluoroscopic guided placement of Vas-Cath with pigtail Clinical indication: Patient with a history of acute renal failure requiring the initiation of dialysis as well as hypotension and tachycardia which may require pressors Date: 12/01/2021 Procedure: Following a explanation of the risk, benefits and alternatives; written informed consent was obtained from the patient's daughter. The patient was also in agreement. The patient was brought to the [facility] and placed in supine position on the examination table. Initial ultrasound evaluation of the neck demonstrated a patent right internal jugular vein. The patient's right neck was prepped and draped in the usual sterile fashion. 1% lidocaine was used for anesthesia. Under ultrasound guidance, the right internal jugular vein was cannulated with a 7 cm 18-gauge needle. A 0.035 guidewire was advanced centrally. The needle was removed and a vertebral catheter advanced over the guidewire. Together the guidewire and catheter were advanced into the IVC to document intravenous positioning and for anchoring. The vertebral catheter was removed. Following serial dilation over the guidewire under fluoroscopy, a 15 cm dialysis catheter was advanced over the guidewire under fluoroscopy to position the tip in the proximal right atrium. The guidewire was removed. All 3 ports flushed and aspirated easily. The catheter was securely fastened to the skin surface using 2-0 Ethilon suture and locked with appropriate volumes of heparin. A sterile dressing was applied. The patient tolerated the procedure well. There were no immediate post procedure complications. No sedation was utilized. Continuous cardiopulmonary monitoring was utilized. Impression: Ultrasound and fluoroscopic guided placement of Vas-Cath with pigtail.
[2021-12-01] MEDS ORDERED: SODIUM CHLORIDE 0.9% 100 ML IV PRN (14:44)
[2021-12-01] MEDS: FAMOTIDINE 10 MG TAB PO SCH ×2 (15:08→21:33)
[2021-12-01] MEDS: ACETAMINOPHEN 325 MG TAB PO PRN (15:17)
[2021-12-01] MEDS: MIDODRINE 5 MG TAB PO SCH ×2 (15:17→19:56)
[2021-12-01] MEDS: SENNOSIDES/DOCUSATE SODIUM 8.6/50 MG TAB PO SCH ×2 (15:19→21:32)
[2021-12-01] MEDS: DOCUSATE SODIUM 100 MG CAP PO SCH ×2 (15:20→21:32)
[2021-12-01] MEDS: METOPROLOL TARTRATE 100 MG TAB PO SCH ×2 (15:20→21:32)
[2021-12-01] MEDS: CEFEPIME/NS 1 GM/100 ML 1 GM/100 ML BAG IV SCH (15:21)
[2021-12-01] MEDS: SPIRONOLACTONE 25 MG TAB PO SCH (15:21)
[2021-12-01 15:45] LABS: ABG Base Excess 1.9 mmol/L (-2.0-3.0); ABG HCO3 25.8 mmol/L (20.0-26.0); ABG Methemoglobin 0.5 % (0.0-1.5); ABG Oxygen Saturation 97.2 % (95.0-99.0); ABG PH 7.45 pH Units (7.350-7.450); ABG PO2 88.9 mm Hg (80.0-90.0)
[2021-12-01] MEDS: ALBUMIN HUMAN 25% (25 GM/100 ML) INJ IV PRN ×2 (17:00→18:02)
[2021-12-01] MEDS ORDERED: VANCOMYCIN/NS 1 GM/250 ML 1 GM/250 ML BAG IV ONE (18:51)
[2021-12-01 20:09] LABS: Hepatitis B Surface Antigen Non-Reactive (Negative); Hepatitis C Virus Antibody Non-Reactive (NonReactive)
[2021-12-02] MEDS: HEPARIN/ 0.45% NACL DRIP 25,000 UNIT/500 ML BAG IV SCH ×2 (00:17→20:02)
[2021-12-02] MEDS: GABAPENTIN 100 MG CAP PO SCH ×3 (00:52→21:33)
[2021-12-02 03:40] LABS: Hematocrit 22.8 % (30.3-42.9); Hemoglobin 7.5 gm/dl (10.1-14.3); Mean Corpuscular HGB Conc 33 % (30-34); Mean Corpuscular Volume 87 fl (79-97); Platelet Count 256 K/mm3 (140-440); Red Blood Count 2.61 M/mm3 (3.65-5.03); Red Cell Distribution Width 16.1 % (13.2-15.2)
[2021-12-02 04:51] LABS: Anisocytosis 1+; Total Cells Counted 100
[2021-12-02] MEDS: hydrALAZINE 25 MG TAB PO SCH (05:12)
--- NOTE | 2021-12-02 08:47 | Progress Note ---
Assessment and Plan Assessment and plan: s/p cardiac arrest, collapse at [facility], HFrEF, shock/hypotension resolved Atrial fibrillation/atrial flutter -Cardiac arrest and collapse at [facility] with ROSC - S/p Cardizem gtt- d/c due to low EF; now on PO Amio -s/p vasopressor support with levophed -Echocardiogram LVEF 25 to 30%, no pericardial effusion -Continue Lasix 20 mg twice daily, BB, spironolactone, losartan Hypotension/shock: Possible septic shock; Start vasopressors, started vasopressin Transfer to ICU for close observation Pulmonary critical already on the case Spontaneous left retroperitoneal hemorrhage requiring cessation of anticoagulation. Ultimately IVC filter was placed, but patient's DVTs continue to propagate. There are now extensive bilateral lower extremity DVTs. Started low intensity heparin drip. Awaiting CBC. If stable, can transition to standard intensity heparin drip. If tolerates that, then can be transition to Eliquis. Fever/lung infiltrate/leukocytosis/sepsis Possible healthcare associated pneumonia Continue cefepime, consult ID Sepsis /Gram-positive bacteremia; IV Vanco 1 dose, repeat cultures Consult ID Acute kidney injury/worsening renal function likely secondary to ATN -Nephrology reconsulted, patient has oliguria, creatinine today 4.9 Nephrology initiated hemodialysis, vascular consulted for Vas-Cath placement Followed by dialysis Severe anemia : Received total 4 units of PRBC Hb today 8.5, monitor H&H transfuse additional PRBC as needed Anemia, due to retroperitoneal bleed -D-dimer greater than 10,000 -CTA chest with no evidence of PE -Bilateral lower extremity ultrasound positive for DVT s/p IVC filter Worsening lower extremity DVT -vasuclar surgery consulted, appreciate recommendations Acute DVT bilateral lower extremities; Worsening DVT, Status post IVC filter placement 11/22 On heparin drip, vascular IR following Transition to Eliquis when patient is more stable Repeat venous duplex ultrasound on 11/21 showed progression of left peroneal DVT extending into popliteal vein. Acute hypoxic respiratory failure, right pneumothorax, Angioedema (resolved), pulmonary edema -Intubated on 10/29 and extubated on 11/11 Pulmonary critical evaluated the patient, managed in ICU later transferred to telemetry -Bipap q HS and prn, at high risk for KOLBY with morbid obesity -s/p right chest tube for pneumothorax -s/p steroids for angioedema -On Lasix for pulmonary edema. Transaminitis likely shocked liver - resolved Shock cardiogenicsuspected sepsis -Fever was as high as 102 with a leukocytosis Blood, urine and sputum cultures negative -COVID-19 PCR negative -S/p empiric antibiotic therapy for possible pneumonia with Rocephin and azith romycin () -S/p Levophed gtt for hypotension -Fever and leukocytosis resolved -Monitor WBC and temperature curve Acute Metabolic encephalopathy, agitation/anxiety -Etiology likely from a cardiac arrest, shock and cerebral hypoperfusion CT head no acute focal parenchymal lesion in the brain -Neurology consulted, appreciate recommendations -EEG and MRI noted, Neuro recommend to cut down on sedation as possible Mental status significantly improved, currently fairly alert and oriented. Answers appropriately. Hypertension, not able be controlled Increase losartan 200 mg daily and add hydralazine as needed. Hyperglycemia ,resolved) -Avoid hypoglycemia -Hbg A1C 6.7 -SSI and lantus q hs (titrate as needed) -Accu-Cheks q. 6 Morbid obesity High risk for KOLBY On nightly BiPAP Deconditioning PT/OT Brief history and daily Hospital course; from 11/22/2021 66 YO Female with Obesity was attending [facility] when the patient collapsed and lost consciousness. Witnesses began CPR. EMS was notified and upon arrival the patient was found to be in distress without perfusing cardiac rhythm. Patient initiated on ACLS protocol and subsequently intubated in the field and transported to ED. The patient regained spontaneous circulation during transport. She was found to have acute hypoxemic respiratory failure, septic shock suspected secondary to aspiration pneumonia, metabolic acidosis, toxic metabolic encephalopathy, shock liver, and cardiac arrest with return of perfusing cardiac rhythm after initiation of ACLS protocol. Patient initiated on sepsis protocol as well as pneumonia protocol. Patient admitted to ICU. Patient improved, extubated on 11/11 and transferred to floor on 11/19. 10/29/2021-11/21/2021 hospital course reviewed 11/22: The infrapopliteal vein thrombosis has propagated to the left popliteal vein. Vascular surgery to perform IVC filter placement today. 11/23: Vascular surgery placed IVC filter yesterday. Continue metoprolol 100 mg p.o. twice daily, Aldactone 25 mg p.o. daily and losartan 25 mg p.o. daily. Patient still requiring BiPAP (IPAP18, EPAP8) with FiO2 of 30%. Continue to wean oxygen per pulmonary recommendations. Nurse reports patient is having vaginal bleeding. We will check serial CBC and pelvic ultrasound 11/24: I discussed with cardiology yesterday the need for a LifeVest. LifeVest is ordered and pending. Patient is s/p IVC filter placement. Continue metoprolol 100 mg p.o. twice daily, Aldactone 25 mg p.o. daily and losartan 25 mg p.o. daily. Patient still requiring BiPAP (IPAP18, EPAP8) with FiO2 of 30%. Continue to wean oxygen per pulmonary recommendations. No further reports of vaginal bleeding. Pelvic ultrasound negative 11/25: Awaiting for LifeVest. Patient is s/p IVC filter placement. Continue metoprolol 100 mg p.o. twice daily, Aldactone 25 mg p.o. daily and losartan 25 mg p.o. daily. Patient still requiring BiPAP (IPAP18, EPAP8) with FiO2 of 3 0%. Continue to wean oxygen per pulmonary recommendations. 11/26: Physical therapy recommends subacute rehab. Still awaiting LifeVest. Patient is s/p IVC filter placement. Continue metoprolol 100 mg p.o. twice daily, Aldactone 25 mg p.o. daily and losartan 25 mg p.o. daily. Patient still requiring BiPAP (IPAP18, EPAP8) with FiO2 of 30% at night. Continue to wean oxygen per pulmonary recommendations. Patient currently with 2 L O2. 11/27: Physical therapy recommends subacute rehab. Patient has a LifeVest. Patient's left lower extremity pain likely related to DVT. Continue pain contro l. Continue metoprolol 100 mg p.o. twice daily, Aldactone 25 mg p.o. daily and losartan 25 mg p.o. daily. Patient still requiring BiPAP (IPAP18, EPAP8) with FiO2 of 30% at night. 11/28: Physical therapy recommends subacute rehab. Patient has a LifeVest. Patient continues to complain of left lower extremity pain which makes it very difficult for ambulation. Continue Percocet for pain control. Add neurontin for possible neuropathy. Etiology is likely secondary to DVT. Continue metoprolol 100 mg p.o. twice daily, Aldactone 25 mg p.o. daily and losartan 25 mg p.o. daily. Patient still requiring BiPAP (IPAP18, EPAP8) with FiO2 of 30% at night. Repeated Doppler US of LLE and will ask vascular surgery to revisit. 11/29; worsening lower extremity DVTs, vascular following, on heparin drip 11/30; low-grade fever, leukocytosis, shortness of breath, chest x-ray possible left-sided pneumonia/possible healthcare associated pneumonia Blood cultures already sent, empiric antibiotic cefepime[renal dose confirmed with pharmacist] ID consult if needed 12/01; gram-positive bacteremia preliminary, add vancomycin 1 dose, repeat cultures, consult ID Worsening renal function, nephrology initiated hemodialysis today, patient is critically ill, very poor prognosis, with multiple comorbidities And critical issues. Grant Officer recommendations noted and appreciated 12/02; Gram positive bacteremia/possible HCAP and sepsis, on cefepime and 1 dose Vanco Nephrology initiated hemodialysis, ID consult. Patient is hypotensive, pulmonary critical recommended transfer to ICU and start vasopressors For close observation overnight Critical care 60 minutes I discussed with patient's daughter over patient's telephone and discussed in detail patient's condition, new developments sepsis, renal failure on hemodialysis anticoagulation for DVT and severe cardiomyopathy, also discussed poor prognosis, and the plans of transferring the patient to ICU for close observation .Many questions, and answered all of them I also discussed with granddaughter at the bedside and patient was moved to ICU, She had numerous questions answered all of them and discussed the current condition prognosis and treatment plan She verbalized understanding History Interval history: I have seen and examined the patient Patient's chart and medications reviewed Patient is hypertensive Complains of generalized weakness Vital signs reviewed Hospitalist Physical - Constitutional Vitals: Temp Pulse Resp BP Pulse Ox 98.7 F 122 H 16 87/42 96 12/02/21 08:26 12/02/21 04:01 12/02/21 08:26 12/02/21 08:26 12/02/21 08:16 General appearance: Present: mild distress, well-nourished, obese (Morbidly obese), other (Chronically ill looking) - EENT Eyes: Present: PERRL, EOM intact - Neck Neck: Present: supple, normal ROM - Respiratory Respiratory effort: normal Respiratory: bilateral: diminished, rhonchi, negative: rales, wheezing - Cardiovascular Rhythm: regular Heart Sounds: Present: S1 & S2 - Extremities Extremities: no ischemia, abnormal (Bilateral lower extremity DVT/swelling) - Abdominal General gastrointestinal: soft, non-tender, non-distended, normal bowel sounds - Integumentary Integumentary: Present: clear, warm - Psychiatric Psychiatric: appropriate mood/affect, cooperative - Neurologic Neurologic: moves all extremities (Responds to simple questions) HEART Score - HEART Score Troponin: Troponin T 1.150 ng/mL (0.00-0.029) H* D 10/29/21 22:34 Results - Labs CBC & Chem 7: 12/02/21 03:22 12/02/21 03:22 Labs: Laboratory Last Values WBC 23.3 K/mm3 (4.5-11.0) H 12/02/21 03: RBC 2.61 M/mm3 (3.65-5.03) L 12/02/21 03: Hgb 7.5 gm/dl (10.1-14.3) L 12/02/21 03:22 Hct 22.8 % (30.3-42.9) L 12/02/21 03: MCV 87 fl (79-97) 12/02/21 03:22 MCH 29 pg (28-32) 12/02/21 03:22 MCHC 33 % (30-34) 12/02/21 03: RDW 16.1 % (13.2-15.2) H 12/02/21 03:22 Plt Count 256 K/mm3 (140-440) 12/02/21 03:22 Lymph % (Auto) 11.1 % (13.4-35.0) L 11/29/21 13:51 Kerr % (Auto) 15.5 % (0.0-7.3) H 11/29/21 13:51 Eos % (Auto) 1.0 % (0.0-4.3) 11/29/21 13:51 Baso % (Auto) 0.6 % (0.0-1.8) 11/29/21 13:51 Lymph # (Auto) 1.4 K/mm3 (1.2-5.4) 11/29/21 13:51 Kerr # (Auto) 2.0 K/mm3 (0.0-0.8) H 11/29/21 13:51 Eos # (Auto) 0.1 K/mm3 (0.0-0.4) 11/29/21 13:51 Baso # (Auto) 0.1 K/mm3 (0.0-0.1) 11/29/21 13:51 Add Manual Diff Complete 12/02/21 03:22 Total Counted 100 12/02/21 03:22 Seg Neutrophils % 71.8 % (40.0-70.0) H 11/29/21 13:51 Seg Neuts % (Manual) 77.0 % (40.0-70.0) H 12/02/21 03:22 Band Neutrophils % 0 % 12/02/21 03:22 Lymphocytes % (Manual) 7.0 % (13.4-35.0) L 12/02/21 03:22 Reactive Lymphs % (Man) 0 % 12/02/21 03:22 Monocytes % (Manual) 14.0 % (0.0-7.3) H 12/02/21 03:22 Eosinophils % (Manual) 1.0 % (0.0-4.3) 12/02/21 03:22 Basophils % (Manual) 1.0 % (0.0-1.8) 12/02/21 03:22 Metamyelocytes % 0 % 12/02/21 03:22 Myelocytes % 0 % 12/02/21 03:22 Promyelocytes % 0 % 12/02/21 03:22 Blast Cells % 0 % 12/02/21 03:22 Nucleated RBC % Not Reportable 12/02/21 03:22 Seg Neutrophils # 9.3 K/mm3 (1.8-7.7) H 11/29/21 13:51 Seg Neutrophils # Man 17.9 K/mm3 (1.8-7.7) H 12/02/21 03:22 Band Neutrophils # 0.0 K/mm3 12/02/21 03:22 Lymphocytes # (Manual) 1.6 K/mm3 (1.2-5.4) 12/02/21 03:22 Abs React Lymphs (Man) 0.0 K/mm3 12/02/21 03:22 Monocytes # (Manual) 3.3 K/mm3 (0.0-0.8) H 12/02/21 03:22 Eosinophils # (Manual) 0.2 K/mm3 (0.0-0.4) 12/02/21 03:22 Basophils # (Manual) 0.2 K/mm3 (0.0-0.1) H 12/02/21 03:22 Metamyelocytes # 0.0 K/mm3 12/02/21 03:22 Myelocytes # 0.0 K/mm3 12/02/21 03:22 Promyelocytes # 0.0 K/mm3 12/02/21 03:22 Blast Cells # 0.0 K/mm3 12/02/21 03:22 WBC Morphology Not Reportable 12/02/21 03:22 Hypersegmented Neuts Not Reportable 12/02/21 03:22 Hyposegmented Neuts Not Reportable 12/02/21 03:22 Hypogranular Neuts Not Reportable 12/02/21 03:22 Smudge Cells Not Reportable 12/02/21 03:22 Toxic Granulation Not Reportable 12/02/21 03:22 Toxic Vacuolation Not Reportable 12/02/21 03:22 Dohle Bodies Not Reportable 12/02/21 03:22 Pelger-Huet Anomaly Not Reportable 12/02/21 03:22 Manny Rods Not Reportable 12/02/21 03:22 Platelet Estimate Not Reportable 12/02/21 03:22 Clumped Platelets Not Reportable 12/02/21 03:22 Plt Clumps, EDTA Not Reportable 12/02/21 03:22 Large Platelets Not Reportable 12/02/21 03:22 Giant Platelets Not Reportable 12/02/21 03:22 Platelet Satelliting Not Reportable 12/02/21 03:22 Plt Morphology Comment Not Reportable 12/02/21 03:22 RBC Morphology Not Reportable 12/02/21 03:22 Dimorphic RBCs Not Reportable 12/02/21 03:22 Polychromasia Not Reportable 12/02/21 03:22 Hypochromasia Not Reportable 12/02/21 03:22 Poikilocytosis Not Reportable 12/02/21 03:22 Anisocytosis 1+ 12/02/21 03:22 Microcytosis Rare 12/02/21 03:22 Macrocytosis Not Reportable 12/02/21 03:22 Spherocytes Not Reportable 12/02/21 03:22 Pappenheimer Bodies Not Reportable 12/02/21 03:22 Sickle Cells Not Reportable 12/02/21 03:22 Target Cells Not Reportable 12/02/21 03:22 Tear Drop Cells Not Reportable 12/02/21 03:22 Ovalocytes Not Reportable 12/02/21 03:22 Helmet Cells Not Reportable 12/02/21 03:22 Maradiaga-Tillar Bodies Not Reportable 12/02/21 03:22 [place] Rings Not Reportable 12/02/21 03:22 [place] Cells Not Reportable 12/02/21 03:22 Bite Cells Not Reportable 12/02/21 03:22 Crenated Cell Not Reportable 12/02/21 03:22 Elliptocytes Not Reportable 12/02/21 03:22 Acanthocytes (Spur) Not Reportable 12/02/21 03:22 Rouleaux Not Reportable 12/02/21 03:22 Hemoglobin C Crystals Not Reportable 12/02/21 03:22 Schistocytes Not Reportable 12/02/21 03:22 Malaria parasites Not Reportable 12/02/21 03:22 Magdy Bodies Not Reportable 12/02/21 03:22 Hem Pathologist Commnt No 12/02/21 03:22 PT 17.2 Sec. (12.2-14.9) H 10/30/21 16:30 INR 1.27 (0.87-1.13) H 10/30/21 16:30 APTT 44.4 Sec. (24.2-36.6) H 10/30/21 16:30 D-Dimer > 19076 ng/mlDDU (0-234) H 10/30/21 Unknown Heparin Anti-Xa Level 0.15 U.I./ml (0.3-0.7) L 12/02/21 03:22 ABG pH 7.450 pH Units (7.350-7.450) 12/01/21 Unknown ABG pCO2 38.0 mm Hg 12/01/21 Unknown ABG pO2 88.9 mm Hg (80.0-90.0) 12/01/21 Unknown ABG HCO3 25.8 mmol/L (20.0-26.0) 12/01/21 Unknown ABG O2 Saturation 97.2 % (95.0-99.0) 12/01/21 Unknown ABG O2 Content 19.4 (0.0-44) 12/01/21 Unknown ABG Base Excess 1.9 mmol/L (-2.0-3.0) 12/01/21 Unknown ABG Hemoglobin 14.3 gm/dl (12.0-16.0) 12/01/21 Unknown ABG Carboxyhemoglobin 1.0 % (0.0-5.0) 12/01/21 Unknown ABG Methemoglobin 0.5 % (0.0-1.5) 12/01/21 Unknown Oxyhemoglobin 95.8 % (95.0-99.0) 12/01/21 Unknown FiO2 21 % 12/01/21 Unknown Sodium 129 mmol/L (137-145) L 12/02/21 03:22 Potassium 4.6 mmol/L (3.6-5.0) 12/02/21 03:22 Chloride 91.7 mmol/L (98-107) L 12/02/21 03:22 Carbon Dioxide 22 mmol/L (22-30) 12/02/21 03:22 Anion Gap 20 mmol/L 12/02/21 03:22 BUN 42 mg/dL (7-17) H 12/02/21 03:22 Creatinine 4.4 mg/dL (0.6-1.2) H 12/02/21 03:22 Estimated GFR 12 ml/min 12/02/21 03:22 BUN/Creatinine Ratio 10 % 12/02/21 03:22 Glucose 95 mg/dL (65-100) 12/02/21 03:22 POC Glucose 85 mg/dL (70-105) 12/02/21 07:52 Hemoglobin A1c 6.7 % (4-6) H 10/31/21 04:30 Lactic Acid 0.70 mmol/L (0.7-2.0) 10/31/21 15:45 Calcium 8.0 mg/dL (8.4-10.2) L 12/02/21 03:22 Phosphorus 5.20 mg/dL (2.5-4.5) H 12/02/21 03:22 Magnesium 1.60 mg/dL (1.7-2.3) L 11/19/21 14:38 Ferritin 208.4 ng/mL (10.0-200.0) H 10/30/21 Unknown Total Bilirubin < 0.20 mg/dL (0.1-1.2) 11/06/21 02:35 AST 21 units/L (5-40) 11/06/21 02:35 ALT 77 units/L (7-56) H 11/06/21 02:35 Alkaline Phosphatase 84 units/L (35-129) 11/06/21 02:35 Ammonia 31.0 umol/L (25-60) 10/29/21 15:10 Lactate Dehydrogenase 469 units/L (91-180) H 10/30/21 Unknown Troponin T 1.150 ng/mL (0.00-0.029) H* D 10/29/21 22:34 C-Reactive Protein 13.40 mg/dL (0.00-1.30) H 10/30/21 Unknown Total Protein 6.3 g/dL (6.3-8.2) 11/06/21 02:35 Albumin 3.0 g/dL (3.9-5) L 11/06/21 02:35 Albumin/Globulin Ratio 0.9 % 11/06/21 02:35 Triglycerides 68 mg/dL (2-149) 10/29/21 19:40 Cholesterol 98 mg/dL (50-199) 10/29/21 19:40 LDL Cholesterol Direct 43 mg/dL (50-130) L 10/29/21 19:40 HDL Cholesterol 50 mg/dL (40-59) 10/29/21 19:40 Cholesterol/HDL Ratio 1.96 % 10/29/21 19:40 Procalcitonin 61.95 ng/mL (<0.15) 10/30/21 Unknown TSH 3.080 mlU/mL (0.270-4.200) 10/29/21 15:10 Urine Color Yellow (Yellow) 11/13/21 08:30 Urine Turbidity Slightly-cloudy (Clear) 11/13/21 08:30 Urine pH 6.0 (5.0-7.0) 11/13/21 08:30 Ur Specific [place] 1.010 (1.003-1.030) 11/13/21 08:30 Urine Protein <15 mg/dl mg/dL (Negative) 11/13/21 08:30 Urine Glucose (UA) Neg mg/dL (Negative) 11/13/21 08:30 Urine Ketones Tr mg/dL (Negative) 11/13/21 08:30 Urine Blood Sm (Negative) 11/13/21 08:30 Urine Nitrite Neg (Negative) 11/13/21 08:30 Urine Bilirubin Neg (Negative) 11/13/21 08:30 Urine Urobilinogen < 2.0 mg/dL (<2.0) 11/13/21 08:30 Ur Leukocyte Esterase Neg (Negative) 11/13/21 08:30 Urine WBC (Auto) < 1.0 /HPF (0.0-6.0) 11/13/21 08:30 Urine RBC (Auto) < 1.0 /HPF (0.0-6.0) 11/13/21 08:30 U Epithel Cells (Auto) < 1.0 /HPF (0-13.0) 11/13/21 08:30 Urine Mucus Few /HPF 10/29/21 18:15 Urine Eosinophils None seen (None Seen) 11/04/21 Unknown Urine Creatinine 190.9 mg/dL (0.1-20.0) H 11/04/21 Unknown Protein/Creatinin Ratio 0.90 11/04/21 Unknown Urine Sodium 10 mmol/L 11/04/21 Unknown Urine Total Protein 172 mg/dL (5-11.8) H 11/04/21 Unknown Salicylates < 0.3 mg/dL (2.8-20.0) L 10/29/21 15:10 Urine Opiates Screen Negative 10/29/21 18:15 Urine Methadone Screen Negative 10/29/21 18:15 Acetaminophen 5.0 ug/mL (10.0-30.0) L 10/29/21 15:10 Ur Barbiturates Screen Negative 10/29/21 18:15 Ur Phencyclidine Scrn Negative 10/29/21 18:15 Ur Amphetamines Screen Negative 10/29/21 18:15 U Benzodiazepines Scrn Negative 10/29/21 18:15 Urine Cocaine Screen Negative 10/29/21 18:15 U Marijuana (THC) Screen Negative 10/29/21 18:15 Drugs of Abuse Note Disclamer 10/29/21 18:15 Plasma/Serum Alcohol < 0.01 % (0-0.07) 10/29/21 15:10 Coronavirus (PCR) Negative (Negative) 10/30/21 Unknown Hepatitis A IgM Ab Non-reactive (NonReactive) 12/01/21 19:36 Hep Bs Antigen Non-reactive (Negative) 03/10/22 19:36 Hep B Core IgM Ab Non-reactive (NonReactive) 12/01/21 19:36 Hepatitis C Antibody Non-reactive (NonReactive) 12/01/21 19:36 Blood Type O POSITIVE 11/12/21 04:15 Antibody Screen Negative 11/12/21 04:15 Crossmatch See Detail 11/12/21 04:15 Microbiology: Microbiology 11/29/21 22:26 Peripheral/Venous Blood Culture - Preliminary NO GROWTH AFTER 48 HOURS 11/29/21 22:26 Peripheral/Venous Blood Culture - Preliminary 11/29/21 21:07 Urine,Clean Catch Urine Culture - Preliminary Gregory/IV: Voiding Method External Female Catheter Active Medications - Current Medications Current Medications: Generic Name Dose Route Start Last Admin Trade Name Freq PRN Reason Stop Dose Admin Acetaminophen 650 mg 10/29/21 17:04 11/12/21 22:53 Acetaminophen 650 Mg Rect Supp [place] 650 mg Q6H PRN Administration Pain MILD(1-3)/Fever >100.5/NIEVES Acetaminophen 650 mg 11/19/21 16:35 12/01/21 15:17 Acetaminophen 325 Mg Tab PO 650 mg Q6HR PRN Administration PAIN Albumin Human 25 gm 12/01/21 11:55 12/01/21 18:02 Albumin Human 25% (25 Gm/100 Ml) Inj IV 25 gm ZACH PRN Administration Hypotension Alprazolam 0.25 mg 11/14/21 14:29 11/27/21 11:24 Alprazolam 0.25 Mg Tab PO 0.25 mg Q8H PRN Administration Anxiety Dextrose 0 ml 11/04/21 13:48 11/12/21 05:45 Dextrose 10% *Hypoglycemia IV 50 ml PRN PRN Administration Hypoglycemia Docusate Sodium 100 mg 11/18/21 15:00 12/01/21 21:32 Docusate Sodium 100 Mg Cap PO Not Given BID RAMON Famotidine 10 mg 11/06/21 10:00 12/01/21 21:33 Famotidine 10 Mg Tab PO 10 mg BID RAMON Administration Gabapentin 100 mg 11/28/21 14:00 12/02/21 05:18 Gabapentin 100 Mg Cap PO 100 mg Q8HR RAMON Administration Heparin Sodium (Porcine) 4,000 unit 12/01/21 07:50 Heparin 10,000 Units/10 Ml Vial 40 unit/kg (4300 unit) IV Q6H PRN Anti-Xa Assay < 0.1 units/ml Hydralazine HCl 50 mg 11/22/21 22:00 12/02/21 05:12 Hydralazine 25 Mg Tab PO Not Given Q8HR [facility] Hydrophilic Ointment 1 applic 10/29/21 14:29 11/09/21 08:51 Lip Therapy Vaseline TP 1 applic Q2HR PRN Administration Dry Lips Heparin Sodium/Sodium Chloride 25,000 unit in 500 mls @ 30 mls/hr 11/28/21 17:00 12/02/21 04:38 Heparin/ 0.45% Nacl-25,000 Unit/500 Ml IV 1,700 units/hr TITR RAMON 34 mls/hr Titration Protocol 1,500 UNITS/HR Cefepime HCl 1 gm in 100 mls @ 200 mls/hr 12/01/21 10:00 12/01/21 15:21 Cefepime/Ns 1 Gm/100 Ml IV 200 mls/hr Q24H [facility] Administration Protocol Sodium Chloride 100 mls @ 999 mls/hr 12/01/21 14:44 Nacl 0.9% IV ZACH PRN Hypotension Insulin Human Lispro 0 unit 11/25/21 22:00 12/01/21 22:30 Insulin Lispro 100 Unit/Ml SUB-Q Not Given ACHS [facility] Protocol Lactulose 20 gm 11/18/21 14:43 11/29/21 21:20 Lactulose 20 Gm/30 Ml Oral Liqd PO 20 gm Q6H PRN Administration Constipation Melatonin 10 mg 11/22/21 17:31 11/27/21 21:32 Melatonin 5 Mg Tab PO 10 mg QHS PRN Administration Sleep Metoprolol Tartrate 100 mg 11/16/21 22:00 12/01/21 21:32 Metoprolol Tartrate 100 Mg Tab PO Not Given BID [facility] Midodrine 10 mg 12/01/21 12:00 12/01/21 19:56 Midodrine 5 Mg Tab PO 10 mg TID@0800,1200,1600 [facility] Administration Morphine Sulfate 1 mg 11/28/21 15:00 11/29/21 07:58 Morphine 2 Mg/1 Ml Inj IV 1 mg Q4H PRN Administration Pain, Moderate (4-6) Multi-Ingred Cream/Lotion/Oil/Oint 1 applic 10/29/21 14:29 11/06/21 09:25 Mineral Oil/Petrolatum, White Ophth Oint 3.5 Gm OU 1 applic Q4HR PRN Administration Dry Eye(s) Oxycodone/Acetaminophen 1 tab 11/27/21 14:31 11/29/21 22:25 Oxycodone /Acetaminophen 5-325mg Tab PO 1 tab Q4H PRN Administration Pain, Moderate (4-6) Polyethylene Glycol 17 gm 11/20/21 12:47 11/25/21 08:30 Polyethylene Glycol 3350 17 Gm Powder PO 17 gm QDAY PRN Administration Constipation Senna/Docusate Sodium 1 tab 11/16/21 22:00 12/01/21 21:32 Sennosides/Docusate Sodium 8.6/50 Mg Tab PO Not Given BID RAMON Sodium Chloride 10 ml 10/29/21 22:00 12/01/21 21:33 Sodium Chloride 0.9% 10 Ml Flush Syringe IV 10 ml BID RAMON Administration Sodium Chloride 10 ml 10/29/21 17:04 Sodium Chloride 0.9% 10 Ml Flush Syringe IV PRN PRN LINE FLUSH Spironolactone 25 mg 11/10/21 10:00 12/01/21 15:21 Spironolactone 25 Mg Tab PO 25 mg QDAY RAMON Administration Nutrition/Malnutrition Assess - Dietary Evaluation Nutrition/Malnutrition Findings: Nutrition Notes Start: 10/30/21 09:50 Freq: Status: Active Protocol: Document 11/25/21 19:04 MEENU (Rec: 11/25/21 19:16 MEENU [id number]) Nutrition Notes Initial or Follow up Reassessment Current Diagnosis Sepsis,Hypertension, Respiratory Failure Other Pertinent Diagnosis s/p Cardiac Arrest, DVT, Anemia, Pneumonia, Pneumothorax, P Edema, HFrEF.. . Current Diet Mechanical Soft Diet (since B 11/22). Labs/Tests 11/24: K 3.2, Cl 96.7, Glu 125 . Pertinent Medications 11/25: Nutritionally unremarkable. Height 5 ft 10 in Weight 109.5 kg [place] Body Weight (kg) 68.18 BMI 34.6 Weight change and time frame 2.5 Kg body weight loss in 1 week reported. Weight Status Obese Subjective/Other Information RD consulr for routine F/U on Diet tolerance/advancement. Diet has advanced to Mechanical Soft. Pt's PO intake of meals has been Fair (50-75%), according to ADL notes. Percent of energy/protein needs met: Prescribed Mechanical Soft Diet provides for energy/ protein needs (2,048 Kcal/97 g ) during LOS. Burn Absent Trauma Absent GI Symptoms None Food Allergy No Skin Integrity/Comment Assessment WNL. Current % PO Fair (50-74%) Minimum of two criteria No #1 Nutrition Diagnosis Inadequate oral intake Comments: Pt's PO intake of meals has been Fair (50-75%), according to ADL notes. Diet advanced to Mechanical Soft. Diagnosis Progress(for reassessment Improved documentation) Is patient on ventilator? No Is Patient Ambulatory and/or Out of Bed No REE-([place]-confined to bed) [phone] Kcal/Kg value to use for calculation 15 Approximate Energy Requirements Using 1643 kcal/Kg Calculation Used for Recommendations Kcal/kg Additional Notes Protein: 0.8-1.2 g/Kg IBW; 70- 105 g/day. Fluids: 1 ml/Kcal, or as per MD. Nutrition Intervention Change Diet Order: Continue Mechanical Soft Diet. Goal #1 Maintain body weight within +/ -3% of admission body weight during LOS. Goal #2 Facilitate PO intake of meals with mechanical modification during LOS. Follow-Up By: 12/02/21 Additional Comments Continue monitoring food tolerance, %PO intake of meals , and BM.
--- NOTE | 2021-12-02 08:52 | Progress Note ---
Assessment and Plan Acute Renal Failure secondary to Ischemic ATN secondary to Sepsis, Cardiac arrest and Hypotension S/P Cardiac Arrest Acute Hypoxemic Respiratory Failure Acute DVT Sepsis CHF Anemia Hyperkalemia Hyponatremia Plan: HD again today for clearance with 1-2 L UF Hemodialysis ordered for UF and clearance after vasc cath is placed IV Albumin to help with BP support during HD Hypotension- Midodrine 10 mg po TID CHF-LVEF 25-30 % Losartan stopped Toradol stopped Anemia-KIKI as needed. Transfuse as needed Obtain daily weights Strict I/O's daily Renally dose medications Avoid nephrotoxic agents Continue to monitor renal function closely Assess dialysis needs daily Subjective Date of service: 12/02/21 Principal diagnosis: AHRF; Cardiac arrest; R. pneumothorax; pneumonia; AMS; DVT's; SIERRA; Obesity Interval history: tolerated HD yesterday Objective - Vital Signs Vital signs: Vital Signs - 12hr 12/01/21 12/01/21 12/02/21 21:56 23:20 03:12 Temperature 97.2 F L 98.2 F Pulse Rate 40 L 120 H Respiratory 20 18 Rate Blood Pressure 93/31 87/43 Blood Pressure [Left] O2 Sat by Pulse 98 96 98 Oximetry 12/02/21 12/02/21 12/02/21 04:01 08:16 08:26 Temperature 98.7 F Pulse Rate 122 H Respiratory 16 Rate Blood Pressure 87/42 Blood Pressure 89/45 [Left] O2 Sat by Pulse 97 96 Oximetry - Lab 12/02/21 03:22 12/02/21 03:22 Most recent lab results ABG pH 7.450 pH Units (7.350-7.450) 12/01/21 Unknown ABG pCO2 38.0 mm Hg 12/01/21 Unknown ABG pO2 88.9 mm Hg (80.0-90.0) 12/01/21 Unknown ABG HCO3 25.8 mmol/L (20.0-26.0) 12/01/21 Unknown ABG O2 Saturation 97.2 % (95.0-99.0) 12/01/21 Unknown Calcium 8.0 mg/dL (8.4-10.2) L 12/02/21 03:22 Phosphorus 5.20 mg/dL (2.5-4.5) H 12/02/21 03:22 Magnesium 1.60 mg/dL (1.7-2.3) L 11/19/21 14:38 Urine Creatinine 190.9 mg/dL (0.1-20.0) H 11/04/21 Unknown Urine Sodium 10 mmol/L 11/04/21 Unknown Urine Total Protein 172 mg/dL (5-11.8) H 11/04/21 Unknown Medications & Allergies - Medications Allergies/Adverse Reactions: Allergies No Known Allergies Allergy (Verified 10/29/21 14:01) Home Medications: Home Medications Medication Instructions Recorded Confirmed Last Taken Type Unobtainable 11/10/21 11/10/21 Unknown History Active Medications: Generic Name Dose Route Start Last Admin Trade Name Freq PRN Reason Stop Dose Admin Acetaminophen 650 mg 10/29/21 17:04 11/12/21 22:53 Acetaminophen 650 Mg Rect Supp RI 650 mg Q6H PRN Administration Pain MILD(1-3)/Fever >100.5/NIEVES Acetaminophen 650 mg 11/19/21 16:35 12/01/21 15:17 Acetaminophen 325 Mg Tab PO 650 mg Q6HR PRN Administration PAIN Albumin Human 25 gm 12/01/21 11:55 12/01/21 18:02 Albumin Human 25% (25 Gm/100 Ml) Inj IV 25 gm ZACH PRN Administration Hypotension Alprazolam 0.25 mg 11/14/21 14:29 11/27/21 11:24 Alprazolam 0.25 Mg Tab PO 0.25 mg Q8H PRN Administration Anxiety Dextrose 0 ml 11/04/21 13:48 11/12/21 05:45 Dextrose 10% *Hypoglycemia IV 50 ml PRN PRN Administration Hypoglycemia Docusate Sodium 100 mg 11/18/21 15:00 12/01/21 21:32 Docusate Sodium 100 Mg Cap PO Not Given BID RAMON Famotidine 10 mg 11/06/21 10:00 12/01/21 21:33 Famotidine 10 Mg Tab PO 10 mg BID RAMON Administration Gabapentin 100 mg 11/28/21 14:00 12/02/21 05:18 Gabapentin 100 Mg Cap PO 100 mg Q8HR RAMON Administration Heparin Sodium (Porcine) 4,000 unit 12/01/21 07:50 Heparin 10,000 Units/10 Ml Vial 40 unit/kg (4300 unit) IV Q6H PRN Anti-Xa Assay < 0.1 units/ml Hydralazine HCl 50 mg 11/22/21 22:00 12/02/21 05:12 Hydralazine 25 Mg Tab PO Not Given Q8HR [facility] Hydrophilic Ointment 1 applic 10/29/21 14:29 11/09/21 08:51 Lip Therapy Vaseline TP 1 applic Q2HR PRN Administration Dry Lips Heparin Sodium/Sodium Chloride 25,000 unit in 500 mls @ 30 mls/hr 11/28/21 17:00 12/02/21 04:38 Heparin/ 0.45% Nacl-25,000 Unit/500 Ml IV 1,700 units/hr TITR RAMON 34 mls/hr Titration Protocol 1,500 UNITS/HR Cefepime HCl 1 gm in 100 mls @ 200 mls/hr 12/01/21 10:00 12/01/21 15:21 Cefepime/Ns 1 Gm/100 Ml IV 200 mls/hr Q24H [facility] Administration Protocol Sodium Chloride 100 mls @ 999 mls/hr 12/01/21 14:44 Nacl 0.9% IV ZACH PRN Hypotension Insulin Human Lispro 0 unit 11/25/21 22:00 12/01/21 22:30 Insulin Lispro 100 Unit/Ml SUB-Q Not Given ACHS [facility] Protocol Lactulose 20 gm 11/18/21 14:43 11/29/21 21:20 Lactulose 20 Gm/30 Ml Oral Liqd PO 20 gm Q6H PRN Administration Constipation Melatonin 10 mg 11/22/21 17:31 11/27/21 21:32 Melatonin 5 Mg Tab PO 10 mg QHS PRN Administration Sleep Metoprolol Tartrate 100 mg 11/16/21 22:00 12/01/21 21:32 Metoprolol Tartrate 100 Mg Tab PO Not Given BID [facility] Midodrine 10 mg 12/01/21 12:00 12/01/21 19:56 Midodrine 5 Mg Tab PO 10 mg TID@0800,1200,1600 [facility] Administration Morphine Sulfate 1 mg 11/28/21 15:00 11/29/21 07:58 Morphine 2 Mg/1 Ml Inj IV 1 mg Q4H PRN Administration Pain, Moderate (4-6) Multi-Ingred Cream/Lotion/Oil/Oint 1 applic 10/29/21 14:29 11/06/21 09:25 Mineral Oil/Petrolatum, White Ophth Oint 3.5 Gm OU 1 applic Q4HR PRN Administration Dry Eye(s) Oxycodone/Acetaminophen 1 tab 11/27/21 14:31 11/29/21 22:25 Oxycodone /Acetaminophen 5-325mg Tab PO 1 tab Q4H PRN Administration Pain, Moderate (4-6) Polyethylene Glycol 17 gm 11/20/21 12:47 11/25/21 08:30 Polyethylene Glycol 3350 17 Gm Powder PO 17 gm QDAY PRN Administration Constipation Senna/Docusate Sodium 1 tab 11/16/21 22:00 12/01/21 21:32 Sennosides/Docusate Sodium 8.6/50 Mg Tab PO Not Given BID RAMON Sodium Chloride 10 ml 10/29/21 22:00 12/01/21 21:33 Sodium Chloride 0.9% 10 Ml Flush Syringe IV 10 ml BID RAMON Administration Sodium Chloride 10 ml 10/29/21 17:04 Sodium Chloride 0.9% 10 Ml Flush Syringe IV PRN PRN LINE FLUSH Spironolactone 25 mg 11/10/21 10:00 12/01/21 15:21 Spironolactone 25 Mg Tab PO 25 mg QDAY RAMON Administration
[2021-12-02] MEDS: MIDODRINE 5 MG TAB PO SCH ×2 (09:37→16:57)
[2021-12-02] MEDS: ACETAMINOPHEN 325 MG TAB PO PRN ×2 (09:38→18:20)
--- NOTE | 2021-12-02 10:16 | Progress Note ---
Assessment and Plan Acute hypoxemic respiratory failure on MVS Cardiac arrest with ROSC Acute DVT Right pneumothorax Shock (septic +/- cardiogenic) Possible aspiration pneumonia SIERRA Altered mental status/acute encephalopathy Elevated serum transaminases, likely shock liver Metabolic acidosis Obesity Retro-peritoneal Hematoma Leukocytosis Hypokalemia Lactic acidosis - transfer to ICU - Albumin 50 gms of 25% IV bolus - begin vasopressin drip - hold all anti-hypertensive med's - continue HD/UF for toxin and volume clearance - continue Midodrine - wean Vasopressors post CVL for target MAP > 65 mmHg - continue anticoagulation while following H&H closely - continue BIPAP scheduled qhs with prn daytime use - continue care as below otherwise; - continue to wean supplemental oxygen for target O2 sat's > 90% acutely - aspiration precautions - continue bronchodilators with pulmonary hygiene per RT - continue accuchecks with glycemic control per SSI (While critically ill target blood glucose of 140-180 mg/dL; avoid hypoglycemia) - avoid nephrotoxins, renally dose all medications - continue to avoid benzodiazepine's, reduce the possibility of delirium - AB's per ID rec's - prn analgesia per pain score - Maintenance of sleep-wake cycle, avoid delirium - G.I. & VTE prophylaxis - PT/OT/ROM exercises - continue mobility protocols for pressure ulcer prophylaxis - Monitor hemodynamics closely - continue other care per attending / other consultants - discharge planning ongoing concurrently COVID SPECIFIC INTERVENTIONS - COVID-19 PCR negative .... Re-evaluate in am & prn CONDITION: CRITICAL PROGNOSIS: GUARDED CODE STATUS: FULL CODE The high probability of a clinically significant, sudden or life-threatening deterioration of the [respiratory, cardiovascular, renal & neurologic] system(s) required my full and direct attention, intervention and personal management. The aggregate critical care time was [35] minutes without overlap. Time includes spent on; [x] Data Review and interpretation [x] Patient assessment and monitoring of vital signs [x] Documentation [x] Medication orders and management Subjective Date of service: 12/02/21 Principal diagnosis: AHRF; Cardiac arrest; R. pneumothorax; pneumonia; AMS; DVT's; SIERRA; Obesity Interval history: Patient is seen today for: Acute hypoxemic respiratory failure; Cardiac arrest with ROSC; Right pneumothorax; pneumonia; AMS; bilateral DVT's; SIERRA; Obesity Seen and examined at bedside; 24hour events reviewed; nursing and respiratory care staff consulted; no adverse overnight events reported to me; resting in bed; remains on supplemental oxygen; remains hypotensive; s/p Vascath; HD/UF ongoing; no N/V/F/C Objective Vital Signs - 12hr 12/01/21 12/02/21 12/02/21 23:20 03:12 04:01 Temperature 97.2 F L 98.2 F Pulse Rate 40 L 120 H 122 H Respiratory 20 18 Rate Blood Pressure 93/31 87/43 Blood Pressure 89/45 [Left] O2 Sat by Pulse 96 98 97 Oximetry 12/02/21 12/02/21 08:16 08:26 Temperature 98.7 F Pulse Rate Respiratory 16 Rate Blood Pressure 87/42 Blood Pressure [Left] O2 Sat by Pulse 96 Oximetry Constitutional: alert, appears uncomfortable, other (elderly obese female with mildly increased respiratory effort at rest ) Eyes: non-icteric ENT: oropharynx moist Neck: supple, no lymphadenopathy, no JVD, other (large circumference) Effort: mildly labored Ascultation: Bilateral: diminished breath sounds, rhonchi (bases) Percussion: Bilateral: not dull Cardiovascular: regular rate and rhythm, other (no R/M) Gastrointestinal: normoactive bowel sounds, soft, non-tender, other (obese) Integumentary: normal, other (Left flank ecchymosis with induration) Extremities: no cyanosis, pulses normal, no ischemia or petechiae, edema Neurologic: normal mental status, non-focal exam (grossly), pupils equal and round, motor strength normal and (weak) Psychiatric: mood appropriate, affect normal CBC and BMP: 12/03/21 05:24 12/03/21 08:00 ABG, PT/INR, D-dimer: ABG ABG pH 7.450 pH Units (7.350-7.450) 12/01/21 Unknown ABG pCO2 38.0 mm Hg 12/01/21 Unknown ABG pO2 88.9 mm Hg (80.0-90.0) 12/01/21 Unknown ABG O2 Saturation 97.2 % (95.0-99.0) 12/01/21 Unknown PT/INR, D-dimer PT 17.2 Sec. (12.2-14.9) H 10/30/21 16:30 INR 1.27 (0.87-1.13) H 10/30/21 16:30 D-Dimer > 19558 ng/mlDDU (0-234) H 10/30/21 Unknown Abnormal lab findings: Abnormal Labs 10/29/21 10/29/21 10/29/21 15:10 15:10 15:10 WBC 27.8 H RBC Hgb Hct MCH 27 L RDW Plt Count Lymph % (Auto) [place] % (Auto) Lymph # (Auto) [place] # (Auto) Seg Neutrophils % Seg Neuts % (Manual) 78.0 H Lymphocytes % (Manual) 10.0 L Monocytes % (Manual) Nucleated RBC % Seg Neutrophils # Seg Neutrophils # Man 21.7 H Monocytes # (Manual) 1.4 H Basophils # (Manual) PT INR APTT D-Dimer Heparin Anti-Xa Level ABG pH ABG pO2 ABG HCO3 ABG O2 Saturation ABG Base Excess ABG Hemoglobin Oxyhemoglobin Sodium Potassium Chloride Carbon Dioxide BUN Creatinine Glucose POC Glucose Hemoglobin A1c Lactic Acid 6.80 H* Calcium Phosphorus Magnesium Ferritin AST ALT Alkaline Phosphatase Lactate Dehydrogenase Troponin T 0.089 H C-Reactive Protein Total Protein Albumin LDL Cholesterol Direct Urine Creatinine Urine Total Protein Salicylates Acetaminophen Crossmatch 10/29/21 10/29/21 10/29/21 15:10 15:10 15:10 WBC RBC Hgb Hct MCH RDW Plt Count Lymph % (Auto) [place] % (Auto) Lymph # (Auto) [place] # (Auto) Seg Neutrophils % Seg Neuts % (Manual) Lymphocytes % (Manual) Monocytes % (Manual) Nucleated RBC % Seg Neutrophils # Seg Neutrophils # Man Monocytes # (Manual) Basophils # (Manual) PT INR APTT D-Dimer Heparin Anti-Xa Level ABG pH ABG pO2 ABG HCO3 ABG O2 Saturation ABG Base Excess ABG Hemoglobin Oxyhemoglobin Sodium 136 L Potassium 2.8 L* Chloride 93.4 L Carbon Dioxide 20 L BUN Creatinine Glucose 330 H POC Glucose Hemoglobin A1c Lactic Acid Calcium Phosphorus Magnesium Ferritin AST 1013 H ALT 1289 H Alkaline Phosphatase 246 H Lactate Dehydrogenase Troponin T C-Reactive Protein Total Protein Albumin LDL Cholesterol Direct Urine Creatinine Urine Total Protein Salicylates < 0.3 L Acetaminophen 5.0 L Crossmatch 10/29/21 10/29/21 10/29/21 15:11 16:01 19:29 WBC RBC Hgb Hct MCH RDW Plt Count Lymph % (Auto) [place] % (Auto) Lymph # (Auto) [place] # (Auto) Seg Neutrophils % Seg Neuts % (Manual) Lymphocytes % (Manual) Monocytes % (Manual) Nucleated RBC % Seg Neutrophils # Seg Neutrophils # Man Monocytes # (Manual) Basophils # (Manual) PT INR APTT D-Dimer Heparin Anti-Xa Level ABG pH 7.307 L ABG pO2 64.1 L ABG HCO3 ABG O2 Saturation 90.8 L ABG Base Excess -2.9 L ABG Hemoglobin Oxyhemoglobin 89.3 L Sodium Potassium Chloride Carbon Dioxide BUN Creatinine Glucose POC Glucose Hemoglobin A1c Lactic Acid 2.60 H* Calcium Phosphorus Magnesium 2.90 H Ferritin AST ALT Alkaline Phosphatase Lactate Dehydrogenase Troponin T C-Reactive Protein Total Protein Albumin LDL Cholesterol Direct Urine Creatinine Urine Total Protein Salicylates Acetaminophen Crossmatch 10/29/21 10/29/21 10/30/21 19:40 22:34 04:30 WBC 16.2 H RBC Hgb Hct MCH 26 L RDW 15.5 H Plt Count Lymph % (Auto) 6.2 L [place] % (Auto) Lymph # (Auto) 1.0 L [place] # (Auto) 0.9 H Seg Neutrophils % 88.1 H Seg Neuts % (Manual) Lymphocytes % (Manual) Monocytes % (Manual) Nucleated RBC % Seg Neutrophils # 14.2 H Seg Neutrophils # Man Monocytes # (Manual) Basophils # (Manual) PT INR APTT D-Dimer Heparin Anti-Xa Level ABG pH ABG pO2 ABG HCO3 ABG O2 Saturation ABG Base Excess ABG Hemoglobin Oxyhemoglobin Sodium Potassium Chloride Carbon Dioxide BUN Creatinine Glucose POC Glucose Hemoglobin A1c Lactic Acid Calcium Phosphorus Magnesium Ferritin AST ALT Alkaline Phosphatase Lactate Dehydrogenase Troponin T 1.950 H* D 1.150 H* D C-Reactive Protein Total Protein Albumin LDL Cholesterol Direct 43 L Urine Creatinine Urine Total Protein Salicylates Acetaminophen Crossmatch 10/30/21 10/30/21 10/30/21 04:30 04:35 05:45 WBC RBC Hgb Hct MCH RDW Plt Count Lymph % (Auto) [place] % (Auto) Lymph # (Auto) [place] # (Auto) Seg Neutrophils % Seg Neuts % (Manual) Lymphocytes % (Manual) Monocytes % (Manual) Nucleated RBC % Seg Neutrophils # Seg Neutrophils # Man Monocytes # (Manual) Basophils # (Manual) PT INR APTT D-Dimer Heparin Anti-Xa Level ABG pH ABG pO2 69.5 L ABG HCO3 ABG O2 Saturation ABG Base Excess -2.7 L ABG Hemoglobin Oxyhemoglobin 94.7 L Sodium Potassium Chloride Carbon Dioxide 21 L BUN Creatinine Glucose 159 H POC Glucose 151 H Hemoglobin A1c Lactic Acid Calcium 7.9 L D Phosphorus Magnesium Ferritin AST 461 H ALT 686 H Alkaline Phosphatase 130 H Lactate Dehydrogenase Troponin T C-Reactive Protein Total Protein 5.6 L D Albumin 3.2 L LDL Cholesterol Direct Urine Creatinine Urine Total Protein Salicylates Acetaminophen Crossmatch 10/30/21 10/30/21 10/30/21 11:24 15:59 16:30 WBC RBC Hgb Hct MCH RDW Plt Count Lymph % (Auto) [place] % (Auto) Lymph # (Auto) [place] # (Auto) Seg Neutrophils % Seg Neuts % (Manual) Lymphocytes % (Manual) Monocytes % (Manual) Nucleated RBC % Seg Neutrophils # Seg Neutrophils # Man Monocytes # (Manual) Basophils # (Manual) PT 17.2 H INR 1.27 H APTT 44.4 H D-Dimer Heparin Anti-Xa Level ABG pH ABG pO2 ABG HCO3 ABG O2 Saturation ABG Base Excess ABG Hemoglobin Oxyhemoglobin Sodium Potassium Chloride Carbon Dioxide BUN Creatinine Glucose POC Glucose 153 H 109 H Hemoglobin A1c Lactic Acid Calcium Phosphorus Magnesium Ferritin AST ALT Alkaline Phosphatase Lactate Dehydrogenase Troponin T C-Reactive Protein Total Protein Albumin LDL Cholesterol Direct Urine Creatinine Urine Total Protein Salicylates Acetaminophen Crossmatch 10/30/21 10/30/21 10/30/21 23:00 Unknown Unknown WBC RBC Hgb Hct MCH RDW Plt Count Lymph % (Auto) [place] % (Auto) Lymph # (Auto) [place] # (Auto) Seg Neutrophils % Seg Neuts % (Manual) Lymphocytes % (Manual) Monocytes % (Manual) Nucleated RBC % Seg Neutrophils # Seg Neutrophils # Man Monocytes # (Manual) Basophils # (Manual) PT INR APTT D-Dimer > 92605 H Heparin Anti-Xa Level 0.82 H ABG pH ABG pO2 ABG HCO3 ABG O2 Saturation ABG Base Excess ABG Hemoglobin Oxyhemoglobin Sodium Potassium Chloride Carbon Dioxide BUN Creatinine Glucose POC Glucose Hemoglobin A1c Lactic Acid Calcium Phosphorus Magnesium Ferritin 208.4 H AST ALT Alkaline Phosphatase Lactate Dehydrogenase Troponin T C-Reactive Protein Total Protein Albumin LDL Cholesterol Direct Urine Creatinine Urine Total Protein Salicylates Acetaminophen Crossmatch 10/30/21 10/31/21 10/31/21 Unknown 04:30 04:30 WBC 14.4 H RBC Hgb Hct MCH 26 L RDW Plt Count Lymph % (Auto) [place] % (Auto) Lymph # (Auto) [place] # (Auto) Seg Neutrophils % Seg Neuts % (Manual) Lymphocytes % (Manual) Monocytes % (Manual) Nucleated RBC % Seg Neutrophils # Seg Neutrophils # Man Monocytes # (Manual) Basophils # (Manual) PT INR APTT D-Dimer Heparin Anti-Xa Level ABG pH ABG pO2 ABG HCO3 ABG O2 Saturation ABG Base Excess ABG Hemoglobin Oxyhemoglobin Sodium Potassium 3.5 L Chloride 107.5 H Carbon Dioxide 20 L BUN 28 H Creatinine 1.7 H Glucose 113 H POC Glucose Hemoglobin A1c Lactic Acid Calcium 7.9 L Phosphorus Magnesium Ferritin AST ALT Alkaline Phosphatase Lactate Dehydrogenase 469 H Troponin T C-Reactive Protein 13.40 H Total Protein Albumin LDL Cholesterol Direct Urine Creatinine Urine Total Protein Salicylates Acetaminophen Crossmatch 10/31/21 10/31/21 10/31/21 04:30 05:11 15:30 WBC RBC Hgb Hct MCH RDW Plt Count Lymph % (Auto) [place] % (Auto) Lymph # (Auto) [place] # (Auto) Seg Neutrophils % Seg Neuts % (Manual) Lymphocytes % (Manual) Monocytes % (Manual) Nucleated RBC % Seg Neutrophils # Seg Neutrophils # Man Monocytes # (Manual) Basophils # (Manual) PT INR APTT D-Dimer Heparin Anti-Xa Level ABG pH 7.222 L ABG pO2 61.5 L ABG HCO3 ABG O2 Saturation 86.2 L ABG Base Excess -6.3 L ABG Hemoglobin 11.2 L Oxyhemoglobin 84.5 L Sodium Potassium Chloride Carbon Dioxide BUN Creatinine Glucose POC Glucose 106 H Hemoglobin A1c 6.7 H Lactic Acid Calcium Phosphorus Magnesium Ferritin AST ALT Alkaline Phosphatase Lactate Dehydrogenase Troponin T C-Reactive Protein Total Protein Albumin LDL Cholesterol Direct Urine Creatinine Urine Total Protein Salicylates Acetaminophen Crossmatch 10/31/21 10/31/21 10/31/21 16:07 16:35 17:45 WBC RBC Hgb Hct MCH RDW Plt Count Lymph % (Auto) [place] % (Auto) Lymph # (Auto) [place] # (Auto) Seg Neutrophils % Seg Neuts % (Manual) Lymphocytes % (Manual) Monocytes % (Manual) Nucleated RBC % Seg Neutrophils # Seg Neutrophils # Man Monocytes # (Manual) Basophils # (Manual) PT INR APTT D-Dimer Heparin Anti-Xa Level ABG pH 7.267 L ABG pO2 58.3 L ABG HCO3 ABG O2 Saturation 88.3 L ABG Base Excess -5.9 L ABG Hemoglobin 10.1 L Oxyhemoglobin 86.5 L Sodium Potassium Chloride Carbon Dioxide BUN Creatinine Glucose POC Glucose 115 H Hemoglobin A1c Lactic Acid Calcium Phosphorus Magnesium Ferritin AST ALT Alkaline Phosphatase Lactate Dehydrogenase Troponin T C-Reactive Protein Total Protein Albumin LDL Cholesterol Direct Urine Creatinine 383.6 H Urine Total Protein Salicylates Acetaminophen Crossmatch 11/01/21 11/01/21 11/01/21 00:06 05:08 06:00 WBC 12.6 H RBC 3.43 L Hgb 8.9 L Hct 28.7 L MCH 26 L RDW 15.7 H Plt Count 130 L Lymph % (Auto) [place] % (Auto) Lymph # (Auto) [place] # (Auto) Seg Neutrophils % Seg Neuts % (Manual) Lymphocytes % (Manual) Monocytes % (Manual) Nucleated RBC % Seg Neutrophils # Seg Neutrophils # Man Monocytes # (Manual) Basophils # (Manual) PT INR APTT D-Dimer Heparin Anti-Xa Level ABG pH ABG pO2 ABG HCO3 ABG O2 Saturation ABG Base Excess ABG Hemoglobin Oxyhemoglobin Sodium Potassium Chloride Carbon Dioxide BUN Creatinine Glucose POC Glucose 114 H 120 H Hemoglobin A1c Lactic Acid Calcium Phosphorus Magnesium Ferritin AST ALT Alkaline Phosphatase Lactate Dehydrogenase Troponin T C-Reactive Protein Total Protein Albumin LDL Cholesterol Direct Urine Creatinine Urine Total Protein Salicylates Acetaminophen Crossmatch 11/01/21 11/01/21 11/01/21 06:00 11:43 14:00 WBC RBC Hgb Hct MCH RDW Plt Count Lymph % (Auto) [place] % (Auto) Lymph # (Auto) [place] # (Auto) Seg Neutrophils % Seg Neuts % (Manual) Lymphocytes % (Manual) Monocytes % (Manual) Nucleated RBC % Seg Neutrophils # Seg Neutrophils # Man Monocytes # (Manual) Basophils # (Manual) PT INR APTT D-Dimer Heparin Anti-Xa Level ABG pH 7.349 L ABG pO2 75.6 L ABG HCO3 ABG O2 Saturation ABG Base Excess -3.9 L ABG Hemoglobin 9.8 L Oxyhemoglobin 93.5 L Sodium Potassium Chloride 114.1 H Carbon Dioxide 20 L BUN 33 H Creatinine Glucose 131 H POC Glucose 151 H Hemoglobin A1c Lactic Acid Calcium 7.7 L Phosphorus Magnesium Ferritin AST 79 H ALT 259 H Alkaline Phosphatase Lactate Dehydrogenase Troponin T C-Reactive Protein Total Protein 5.5 L Albumin 2.7 L LDL Cholesterol Direct Urine Creatinine Urine Total Protein Salicylates Acetaminophen Crossmatch 11/01/21 11/01/21 11/02/21 16:45 22:55 05:12 WBC RBC Hgb Hct MCH RDW Plt Count Lymph % (Auto) [place] % (Auto) Lymph # (Auto) [place] # (Auto) Seg Neutrophils % Seg Neuts % (Manual) Lymphocytes % (Manual) Monocytes % (Manual) Nucleated RBC % Seg Neutrophils # Seg Neutrophils # Man Monocytes # (Manual) Basophils # (Manual) PT INR APTT D-Dimer Heparin Anti-Xa Level ABG pH ABG pO2 ABG HCO3 ABG O2 Saturation ABG Base Excess ABG Hemoglobin Oxyhemoglobin Sodium Potassium Chloride Carbon Dioxide BUN Creatinine Glucose POC Glucose 119 H 129 H 140 H Hemoglobin A1c Lactic Acid Calcium Phosphorus Magnesium Ferritin AST ALT Alkaline Phosphatase Lactate Dehydrogenase Troponin T C-Reactive Protein Total Protein Albumin LDL Cholesterol Direct Urine Creatinine Urine Total Protein Salicylates Acetaminophen Crossmatch 11/02/21 11/02/21 11/02/21 05:35 05:35 09:35 WBC 13.5 H RBC 3.60 L Hgb 9.7 L Hct MCH 27 L RDW 15.7 H Plt Count Lymph % (Auto) [place] % (Auto) Lymph # (Auto) [place] # (Auto) Seg Neutrophils % Seg Neuts % (Manual) Lymphocytes % (Manual) Monocytes % (Manual) Nucleated RBC % Seg Neutrophils # Seg Neutrophils # Man Monocytes # (Manual) Basophils # (Manual) PT INR APTT D-Dimer Heparin Anti-Xa Level ABG pH 7.208 L ABG pO2 75.9 L ABG HCO3 ABG O2 Saturation 93.6 L ABG Base Excess -4.3 L ABG Hemoglobin 9.1 L Oxyhemoglobin 91.6 L Sodium Potassium 5.2 H D Chloride 112.6 H Carbon Dioxide BUN 32 H Creatinine Glucose 152 H POC Glucose Hemoglobin A1c Lactic Acid Calcium 8.2 L Phosphorus Magnesium 2.70 H Ferritin AST ALT Alkaline Phosphatase Lactate Dehydrogenase Troponin T C-Reactive Protein Total Protein Albumin LDL Cholesterol Direct Urine Creatinine Urine Total Protein Salicylates Acetaminophen Crossmatch 11/02/21 11/02/21 11/02/21 11:44 17:13 23:43 WBC RBC Hgb Hct MCH RDW Plt Count Lymph % (Auto) [place] % (Auto) Lymph # (Auto) [place] # (Auto) Seg Neutrophils % Seg Neuts % (Manual) Lymphocytes % (Manual) Monocytes % (Manual) Nucleated RBC % Seg Neutrophils # Seg Neutrophils # Man Monocytes # (Manual) Basophils # (Manual) PT INR APTT D-Dimer Heparin Anti-Xa Level ABG pH ABG pO2 ABG HCO3 ABG O2 Saturation ABG Base Excess ABG Hemoglobin Oxyhemoglobin Sodium Potassium Chloride Carbon Dioxide BUN Creatinine Glucose POC Glucose 173 H 148 H 137 H Hemoglobin A1c Lactic Acid Calcium Phosphorus Magnesium Ferritin AST ALT Alkaline Phosphatase Lactate Dehydrogenase Troponin T C-Reactive Protein Total Protein Albumin LDL Cholesterol Direct Urine Creatinine Urine Total Protein Salicylates Acetaminophen Crossmatch 11/03/21 11/03/21 11/03/21 04:59 06:00 06:00 WBC RBC 3.43 L Hgb 9.1 L Hct 29.0 L MCH 26 L RDW 16.4 H Plt Count Lymph % (Auto) [place] % (Auto) Lymph # (Auto) [place] # (Auto) Seg Neutrophils % Seg Neuts % (Manual) Lymphocytes % (Manual) Monocytes % (Manual) Nucleated RBC % Seg Neutrophils # Seg Neutrophils # Man Monocytes # (Manual) Basophils # (Manual) PT INR APTT D-Dimer Heparin Anti-Xa Level 0.17 L ABG pH ABG pO2 ABG HCO3 ABG O2 Saturation ABG Base Excess ABG Hemoglobin Oxyhemoglobin Sodium Potassium Chloride Carbon Dioxide BUN Creatinine Glucose POC Glucose 167 H Hemoglobin A1c Lactic Acid Calcium Phosphorus Magnesium Ferritin AST ALT Alkaline Phosphatase Lactate Dehydrogenase Troponin T C-Reactive Protein Total Protein Albumin LDL Cholesterol Direct Urine Creatinine Urine Total Protein Salicylates Acetaminophen Crossmatch 11/03/21 11/03/21 11/03/21 06:00 09:20 11:58 WBC RBC Hgb Hct MCH RDW Plt Count Lymph % (Auto) [place] % (Auto) Lymph # (Auto) [place] # (Auto) Seg Neutrophils % Seg Neuts % (Manual) Lymphocytes % (Manual) Monocytes % (Manual) Nucleated RBC % Seg Neutrophils # Seg Neutrophils # Man Monocytes # (Manual) Basophils # (Manual) PT INR APTT D-Dimer Heparin Anti-Xa Level ABG pH 7.274 L ABG pO2 75.6 L ABG HCO3 ABG O2 Saturation 94.9 L ABG Base Excess -2.5 L ABG Hemoglobin 9.3 L Oxyhemoglobin 92.9 L Sodium 149 H Potassium Chloride 117.5 H Carbon Dioxide BUN 32 H Creatinine Glucose 173 H POC Glucose 192 H Hemoglobin A1c Lactic Acid Calcium 8.1 L Phosphorus Magnesium Ferritin AST ALT Alkaline Phosphatase Lactate Dehydrogenase Troponin T C-Reactive Protein Total Protein Albumin LDL Cholesterol Direct Urine Creatinine Urine Total Protein Salicylates Acetaminophen Crossmatch 11/03/21 11/03/21 11/04/21 18:22 Unknown 00:09 WBC RBC Hgb Hct MCH RDW Plt Count Lymph % (Auto) [place] % (Auto) Lymph # (Auto) [place] # (Auto) Seg Neutrophils % Seg Neuts % (Manual) Lymphocytes % (Manual) Monocytes % (Manual) Nucleated RBC % Seg Neutrophils # Seg Neutrophils # Man Monocytes # (Manual) Basophils # (Manual) PT INR APTT D-Dimer Heparin Anti-Xa Level 0.29 L ABG pH ABG pO2 ABG HCO3 ABG O2 Saturation ABG Base Excess ABG Hemoglobin Oxyhemoglobin Sodium Potassium Chloride Carbon Dioxide BUN Creatinine Glucose POC Glucose 178 H 221 H Hemoglobin A1c Lactic Acid Calcium Phosphorus Magnesium Ferritin AST ALT Alkaline Phosphatase Lactate Dehydrogenase Troponin T C-Reactive Protein Total Protein Albumin LDL Cholesterol Direct Urine Creatinine Urine Total Protein Salicylates Acetaminophen Crossmatch 11/04/21 11/04/21 11/04/21 05:09 09:40 09:40 WBC 16.8 H RBC Hgb Hct MCH 27 L RDW 16.5 H Plt Count Lymph % (Auto) [place] % (Auto) Lymph # (Auto) [place] # (Auto) Seg Neutrophils % Seg Neuts % (Manual) Lymphocytes % (Manual) Monocytes % (Manual) Nucleated RBC % Seg Neutrophils # Seg Neutrophils # Man Monocytes # (Manual) Basophils # (Manual) PT INR APTT D-Dimer Heparin Anti-Xa Level ABG pH ABG pO2 ABG HCO3 ABG O2 Saturation ABG Base Excess ABG Hemoglobin Oxyhemoglobin Sodium Potassium 5.9 H Chloride 108.5 H Carbon Dioxide BUN 54 H Creatinine 1.8 H Glucose 198 H POC Glucose 182 H Hemoglobin A1c Lactic Acid Calcium Phosphorus Magnesium 3.00 H Ferritin AST ALT Alkaline Phosphatase Lactate Dehydrogenase Troponin T C-Reactive Protein Total Protein Albumin LDL Cholesterol Direct Urine Creatinine Urine Total Protein Salicylates Acetaminophen Crossmatch 11/04/21 11/04/21 11/04/21 12:13 13:34 14:05 WBC RBC Hgb Hct MCH RDW Plt Count Lymph % (Auto) [place] % (Auto) Lymph # (Auto) [place] # (Auto) Seg Neutrophils % Seg Neuts % (Manual) Lymphocytes % (Manual) Monocytes % (Manual) Nucleated RBC % Seg Neutrophils # Seg Neutrophils # Man Monocytes # (Manual) Basophils # (Manual) PT INR APTT D-Dimer Heparin Anti-Xa Level ABG pH 7.223 L ABG pO2 71.3 L ABG HCO3 ABG O2 Saturation 92.8 L ABG Base Excess ABG Hemoglobin 8.2 L Oxyhemoglobin 91.0 L Sodium Potassium Chloride Carbon Dioxide BUN Creatinine Glucose POC Glucose 184 H Hemoglobin A1c Lactic Acid Calcium Phosphorus Magnesium Ferritin AST ALT Alkaline Phosphatase Lactate Dehydrogenase Troponin T C-Reactive Protein Total Protein Albumin LDL Cholesterol Direct Urine Creatinine 184.6 H Urine Total Protein Salicylates Acetaminophen Crossmatch 11/04/21 11/04/21 11/05/21 18:02 Unknown 00:07 WBC RBC Hgb Hct MCH RDW Plt Count Lymph % (Auto) [place] % (Auto) Lymph # (Auto) [place] # (Auto) Seg Neutrophils % Seg Neuts % (Manual) Lymphocytes % (Manual) Monocytes % (Manual) Nucleated RBC % Seg Neutrophils # Seg Neutrophils # Man Monocytes # (Manual) Basophils # (Manual) PT INR APTT D-Dimer Heparin Anti-Xa Level ABG pH ABG pO2 ABG HCO3 ABG O2 Saturation ABG Base Excess ABG Hemoglobin Oxyhemoglobin Sodium Potassium Chloride Carbon Dioxide BUN Creatinine Glucose POC Glucose 262 H 259 H Hemoglobin A1c Lactic Acid Calcium Phosphorus Magnesium Ferritin AST ALT Alkaline Phosphatase Lactate Dehydrogenase Troponin T C-Reactive Protein Total Protein Albumin LDL Cholesterol Direct Urine Creatinine 190.9 H Urine Total Protein 172 H Salicylates Acetaminophen Crossmatch 11/05/21 11/05/21 11/05/21 04:20 04:20 05:30 WBC 17.9 H RBC 3.64 L Hgb 9.7 L Hct MCH 27 L RDW 16.4 H Plt Count Lymph % (Auto) [place] % (Auto) Lymph # (Auto) [place] # (Auto) Seg Neutrophils % Seg Neuts % (Manual) Lymphocytes % (Manual) Monocytes % (Manual) Nucleated RBC % Seg Neutrophils # Seg Neutrophils # Man Monocytes # (Manual) Basophils # (Manual) PT INR APTT D-Dimer Heparin Anti-Xa Level ABG pH ABG pO2 ABG HCO3 ABG O2 Saturation ABG Base Excess ABG Hemoglobin Oxyhemoglobin Sodium Potassium 5.6 H Chloride 108.4 H Carbon Dioxide BUN 71 H Creatinine 1.9 H Glucose 270 H POC Glucose 283 H Hemoglobin A1c Lactic Acid Calcium Phosphorus Magnesium Ferritin AST ALT Alkaline Phosphatase Lactate Dehydrogenase Troponin T C-Reactive Protein Total Protein Albumin LDL Cholesterol Direct Urine Creatinine Urine Total Protein Salicylates Acetaminophen Crossmatch 11/05/21 11/05/21 11/05/21 10:05 12:10 15:29 WBC RBC Hgb Hct MCH RDW Plt Count Lymph % (Auto) [place] % (Auto) Lymph # (Auto) [place] # (Auto) Seg Neutrophils % Seg Neuts % (Manual) Lymphocytes % (Manual) Monocytes % (Manual) Nucleated RBC % Seg Neutrophils # Seg Neutrophils # Man Monocytes # (Manual) Basophils # (Manual) PT INR APTT D-Dimer Heparin Anti-Xa Level ABG pH 7.248 L ABG pO2 73.7 L ABG HCO3 26.2 H ABG O2 Saturation 93.1 L ABG Base Excess ABG Hemoglobin 8.9 L Oxyhemoglobin 91.4 L Sodium Potassium Chloride Carbon Dioxide BUN Creatinine Glucose POC Glucose 225 H 199 H Hemoglobin A1c Lactic Acid Calcium Phosphorus Magnesium Ferritin AST ALT Alkaline Phosphatase Lactate Dehydrogenase Troponin T C-Reactive Protein Total Protein Albumin LDL Cholesterol Direct Urine Creatinine Urine Total Protein Salicylates Acetaminophen Crossmatch 11/05/21 11/05/21 11/05/21 15:51 17:32 17:40 WBC RBC Hgb Hct MCH RDW Plt Count Lymph % (Auto) [place] % (Auto) Lymph # (Auto) [place] # (Auto) Seg Neutrophils % Seg Neuts % (Manual) Lymphocytes % (Manual) Monocytes % (Manual) Nucleated RBC % Seg Neutrophils # Seg Neutrophils # Man Monocytes # (Manual) Basophils # (Manual) PT INR APTT D-Dimer Heparin Anti-Xa Level ABG pH ABG pO2 ABG HCO3 ABG O2 Saturation ABG Base Excess ABG Hemoglobin Oxyhemoglobin Sodium Potassium 5.2 H Chloride 107.8 H Carbon Dioxide BUN 79 H Creatinine 1.9 H Glucose 204 H POC Glucose 278 H 197 H Hemoglobin A1c Lactic Acid Calcium Phosphorus Magnesium Ferritin AST ALT Alkaline Phosphatase Lactate Dehydrogenase Troponin T C-Reactive Protein Total Protein Albumin LDL Cholesterol Direct Urine Creatinine Urine Total Protein Salicylates Acetaminophen Crossmatch 11/05/21 11/05/21 11/05/21 21:25 22:22 23:43 WBC RBC Hgb Hct MCH RDW Plt Count Lymph % (Auto) [place] % (Auto) Lymph # (Auto) [place] # (Auto) Seg Neutrophils % Seg Neuts % (Manual) Lymphocytes % (Manual) Monocytes % (Manual) Nucleated RBC % Seg Neutrophils # Seg Neutrophils # Man Monocytes # (Manual) Basophils # (Manual) PT INR APTT D-Dimer Heparin Anti-Xa Level ABG pH ABG pO2 ABG HCO3 ABG O2 Saturation ABG Base Excess ABG Hemoglobin Oxyhemoglobin Sodium Potassium 5.3 H Chloride 109.2 H Carbon Dioxide BUN 81 H Creatinine 2.0 H Glucose 195 H POC Glucose 180 H 203 H Hemoglobin A1c Lactic Acid Calcium Phosphorus Magnesium Ferritin AST ALT Alkaline Phosphatase Lactate Dehydrogenase Troponin T C-Reactive Protein Total Protein Albumin LDL Cholesterol Direct Urine Creatinine Urine Total Protein Salicylates Acetaminophen Crossmatch 11/05/21 11/06/21 11/06/21 Unknown 02:35 05:09 WBC RBC Hgb Hct MCH RDW Plt Count Lymph % (Auto) [place] % (Auto) Lymph # (Auto) [place] # (Auto) Seg Neutrophils % Seg Neuts % (Manual) Lymphocytes % (Manual) Monocytes % (Manual) Nucleated RBC % Seg Neutrophils # Seg Neutrophils # Man Monocytes # (Manual) Basophils # (Manual) PT INR APTT D-Dimer Heparin Anti-Xa Level ABG pH ABG pO2 ABG HCO3 ABG O2 Saturation ABG Base Excess ABG Hemoglobin Oxyhemoglobin Sodium 146 H Potassium 6.0 H Chloride 108.1 H 107.1 H Carbon Dioxide 21 L BUN 80 H 84 H Creatinine 2.0 H 2.0 H Glucose 238 H 235 H POC Glucose 215 H Hemoglobin A1c Lactic Acid Calcium Phosphorus Magnesium 2.80 H Ferritin AST ALT 77 H Alkaline Phosphatase Lactate Dehydrogenase Troponin T C-Reactive Protein Total Protein Albumin 3.0 L LDL Cholesterol Direct Urine Creatinine Urine Total Protein Salicylates Acetaminophen Crossmatch 11/06/21 11/06/21 11/06/21 05:40 08:07 08:07 WBC RBC Hgb Hct MCH RDW Plt Count Lymph % (Auto) [place] % (Auto) Lymph # (Auto) [place] # (Auto) Seg Neutrophils % Seg Neuts % (Manual) Lymphocytes % (Manual) Monocytes % (Manual) Nucleated RBC % Seg Neutrophils # Seg Neutrophils # Man Monocytes # (Manual) Basophils # (Manual) PT INR APTT D-Dimer Heparin Anti-Xa Level 1.24 H ABG pH 7.311 L ABG pO2 72.8 L ABG HCO3 29.7 H ABG O2 Saturation 94.1 L ABG Base Excess ABG Hemoglobin 11.4 L Oxyhemoglobin 92.3 L Sodium Potassium 5.2 H Chloride Carbon Dioxide BUN 85 H Creatinine 2.3 H Glucose 236 H POC Glucose Hemoglobin A1c Lactic Acid Calcium Phosphorus Magnesium Ferritin AST ALT Alkaline Phosphatase Lactate Dehydrogenase Troponin T C-Reactive Protein Total Protein Albumin LDL Cholesterol Direct Urine Creatinine Urine Total Protein Salicylates Acetaminophen Crossmatch 11/06/21 11/06/21 11/06/21 12:14 12:57 14:28 WBC RBC Hgb Hct MCH RDW Plt Count Lymph % (Auto) [place] % (Auto) Lymph # (Auto) [place] # (Auto) Seg Neutrophils % Seg Neuts % (Manual) Lymphocytes % (Manual) Monocytes % (Manual) Nucleated RBC % Seg Neutrophils # Seg Neutrophils # Man Monocytes # (Manual) Basophils # (Manual) PT INR APTT D-Dimer Heparin Anti-Xa Level ABG pH 7.282 L ABG pO2 72.6 L ABG HCO3 30.8 H ABG O2 Saturation 93.7 L ABG Base Excess 3.2 H ABG Hemoglobin 8.6 L Oxyhemoglobin 91.8 L Sodium Potassium Chloride Carbon Dioxide BUN 91 H Creatinine 2.6 H Glucose 259 H POC Glucose 225 H Hemoglobin A1c Lactic Acid Calcium Phosphorus Magnesium Ferritin AST ALT Alkaline Phosphatase Lactate Dehydrogenase Troponin T C-Reactive Protein Total Protein Albumin LDL Cholesterol Direct Urine Creatinine Urine Total Protein Salicylates Acetaminophen Crossmatch 11/06/21 11/06/21 11/06/21 17:28 19:20 21:30 WBC RBC Hgb Hct MCH RDW Plt Count Lymph % (Auto) [place] % (Auto) Lymph # (Auto) [place] # (Auto) Seg Neutrophils % Seg Neuts % (Manual) Lymphocytes % (Manual) Monocytes % (Manual) Nucleated RBC % Seg Neutrophils # Seg Neutrophils # Man Monocytes # (Manual) Basophils # (Manual) PT INR APTT D-Dimer Heparin Anti-Xa Level 0.73 H ABG pH ABG pO2 ABG HCO3 ABG O2 Saturation ABG Base Excess ABG Hemoglobin Oxyhemoglobin Sodium Potassium Chloride Carbon Dioxide BUN 95 H Creatinine 2.9 H Glucose 233 H POC Glucose 206 H Hemoglobin A1c Lactic Acid Calcium Phosphorus Magnesium Ferritin AST ALT Alkaline Phosphatase Lactate Dehydrogenase Troponin T C-Reactive Protein Total Protein Albumin LDL Cholesterol Direct Urine Creatinine Urine Total Protein Salicylates Acetaminophen Crossmatch 02/11/07/21 11/07/21 22:56 05:06 06:30 WBC RBC Hgb Hct MCH RDW Plt Count Lymph % (Auto) [place] % (Auto) Lymph # (Auto) [place] # (Auto) Seg Neutrophils % Seg Neuts % (Manual) Lymphocytes % (Manual) Monocytes % (Manual) Nucleated RBC % Seg Neutrophils # Seg Neutrophils # Man Monocytes # (Manual) Basophils # (Manual) PT INR APTT D-Dimer Heparin Anti-Xa Level ABG pH ABG pO2 ABG HCO3 ABG O2 Saturation ABG Base Excess ABG Hemoglobin Oxyhemoglobin Sodium 146 H Potassium Chloride Carbon Dioxide BUN 98 H Creatinine 2.8 H Glucose 202 H POC Glucose 215 H 172 H Hemoglobin A1c Lactic Acid Calcium Phosphorus 4.90 H D Magnesium 2.90 H Ferritin AST ALT Alkaline Phosphatase Lactate Dehydrogenase Troponin T C-Reactive Protein Total Protein Albumin LDL Cholesterol Direct Urine Creatinine Urine Total Protein Salicylates Acetaminophen Crossmatch 11/07/21 11/07/21 11/07/21 06:30 11:26 12:15 WBC 16.0 H RBC 3.06 L Hgb 8.2 L Hct 26.1 L MCH 27 L RDW 16.2 H Plt Count Lymph % (Auto) [place] % (Auto) Lymph # (Auto) [place] # (Auto) Seg Neutrophils % Seg Neuts % (Manual) 77.0 H Lymphocytes % (Manual) 11.0 L Monocytes % (Manual) Nucleated RBC % 2.0 H Seg Neutrophils # Seg Neutrophils # Man 12.3 H Monocytes # (Manual) Basophils # (Manual) PT INR APTT D-Dimer Heparin Anti-Xa Level ABG pH 7.298 L ABG pO2 73.0 L ABG HCO3 33.3 H ABG O2 Saturation 94.4 L ABG Base Excess 5.8 H ABG Hemoglobin 8.2 L Oxyhemoglobin 92.7 L Sodium Potassium Chloride Carbon Dioxide BUN Creatinine Glucose POC Glucose 179 H Hemoglobin A1c Lactic Acid Calcium Phosphorus Magnesium Ferritin AST ALT Alkaline Phosphatase Lactate Dehydrogenase Troponin T C-Reactive Protein Total Protein Albumin LDL Cholesterol Direct Urine Creatinine Urine Total Protein Salicylates Acetaminophen Crossmatch 11/07/21 11/07/21 11/07/21 17:57 22:16 23:49 WBC RBC Hgb Hct MCH RDW Plt Count Lymph % (Auto) [place] % (Auto) Lymph # (Auto) [place] # (Auto) Seg Neutrophils % Seg Neuts % (Manual) Lymphocytes % (Manual) Monocytes % (Manual) Nucleated RBC % Seg Neutrophils # Seg Neutrophils # Man Monocytes # (Manual) Basophils # (Manual) PT INR APTT D-Dimer Heparin Anti-Xa Level ABG pH ABG pO2 ABG HCO3 ABG O2 Saturation ABG Base Excess ABG Hemoglobin Oxyhemoglobin Sodium Potassium Chloride Carbon Dioxide BUN Creatinine Glucose POC Glucose 166 H 223 H 190 H Hemoglobin A1c Lactic Acid Calcium Phosphorus Magnesium Ferritin AST ALT Alkaline Phosphatase Lactate Dehydrogenase Troponin T C-Reactive Protein Total Protein Albumin LDL Cholesterol Direct Urine Creatinine Urine Total Protein Salicylates Acetaminophen Crossmatch 11/08/21 11/08/21 11/08/21 04:20 04:20 06:16 WBC 22.1 H RBC 3.01 L Hgb 8.1 L Hct 25.6 L MCH 27 L RDW 15.4 H Plt Count Lymph % (Auto) [place] % (Auto) Lymph # (Auto) [place] # (Auto) Seg Neutrophils % Seg Neuts % (Manual) Lymphocytes % (Manual) Monocytes % (Manual) Nucleated RBC % Seg Neutrophils # Seg Neutrophils # Man Monocytes # (Manual) Basophils # (Manual) PT INR APTT D-Dimer Heparin Anti-Xa Level ABG pH ABG pO2 ABG HCO3 ABG O2 Saturation ABG Base Excess ABG Hemoglobin Oxyhemoglobin Sodium 151 H Potassium 3.1 L D Chloride 107.3 H Carbon Dioxide 31 H BUN 82 H Creatinine 1.8 H Glucose 232 H POC Glucose 198 H Hemoglobin A1c Lactic Acid Calcium 8.1 L Phosphorus Magnesium Ferritin AST ALT Alkaline Phosphatase Lactate Dehydrogenase Troponin T C-Reactive Protein Total Protein Albumin LDL Cholesterol Direct Urine Creatinine Urine Total Protein Salicylates Acetaminophen Crossmatch 11/08/21 11/08/21 11/08/21 11:38 12:00 18:29 WBC RBC Hgb Hct MCH RDW Plt Count Lymph % (Auto) [place] % (Auto) Lymph # (Auto) [place] # (Auto) Seg Neutrophils % Seg Neuts % (Manual) Lymphocytes % (Manual) Monocytes % (Manual) Nucleated RBC % Seg Neutrophils # Seg Neutrophils # Man Monocytes # (Manual) Basophils # (Manual) PT INR APTT D-Dimer Heparin Anti-Xa Level ABG pH ABG pO2 ABG HCO3 ABG O2 Saturation ABG Base Excess ABG Hemoglobin Oxyhemoglobin Sodium Potassium 3.0 L Chloride Carbon Dioxide BUN Creatinine Glucose POC Glucose 190 H 211 H Hemoglobin A1c Lactic Acid Calcium Phosphorus Magnesium Ferritin AST ALT Alkaline Phosphatase Lactate Dehydrogenase Troponin T C-Reactive Protein Total Protein Albumin LDL Cholesterol Direct Urine Creatinine Urine Total Protein Salicylates Acetaminophen Crossmatch 11/08/21 11/08/21 11/09/21 21:34 21:40 00:36 WBC RBC Hgb Hct MCH RDW Plt Count Lymph % (Auto) [place] % (Auto) Lymph # (Auto) [place] # (Auto) Seg Neutrophils % Seg Neuts % (Manual) Lymphocytes % (Manual) Monocytes % (Manual) Nucleated RBC % Seg Neutrophils # Seg Neutrophils # Man Monocytes # (Manual) Basophils # (Manual) PT INR APTT D-Dimer Heparin Anti-Xa Level ABG pH ABG pO2 ABG HCO3 ABG O2 Saturation ABG Base Excess ABG Hemoglobin Oxyhemoglobin Sodium 148 H Potassium 2.8 L* Chloride Carbon Dioxide 31 H BUN 68 H Creatinine 1.5 H Glucose 191 H POC Glucose 194 H 140 H Hemoglobin A1c Lactic Acid Calcium 8.2 L Phosphorus Magnesium Ferritin AST ALT Alkaline Phosphatase Lactate Dehydrogenase Troponin T C-Reactive Protein Total Protein Albumin LDL Cholesterol Direct Urine Creatinine Urine Total Protein Salicylates Acetaminophen Crossmatch 11/09/21 11/09/21 11/09/21 04:51 04:51 04:51 WBC 27.6 H RBC 3.18 L Hgb 8.4 L Hct 26.6 L MCH 27 L RDW 15.3 H Plt Count Lymph % (Auto) [place] % (Auto) Lymph # (Auto) [place] # (Auto) Seg Neutrophils % Seg Neuts % (Manual) Lymphocytes % (Manual) Monocytes % (Manual) Nucleated RBC % Seg Neutrophils # Seg Neutrophils # Man Monocytes # (Manual) Basophils # (Manual) PT INR APTT D-Dimer Heparin Anti-Xa Level 0.18 L ABG pH ABG pO2 ABG HCO3 ABG O2 Saturation ABG Base Excess ABG Hemoglobin Oxyhemoglobin Sodium 148 H Potassium 2.7 L* Chloride Carbon Dioxide BUN 59 H Creatinine 1.4 H Glucose 143 H POC Glucose Hemoglobin A1c Lactic Acid Calcium 8.3 L Phosphorus Magnesium Ferritin AST ALT Alkaline Phosphatase Lactate Dehydrogenase Troponin T C-Reactive Protein Total Protein Albumin LDL Cholesterol Direct Urine Creatinine Urine Total Protein Salicylates Acetaminophen Crossmatch 11/09/21 11/09/21 11/09/21 05:52 08:45 11:00 WBC RBC Hgb Hct MCH RDW Plt Count Lymph % (Auto) [place] % (Auto) Lymph # (Auto) [place] # (Auto) Seg Neutrophils % Seg Neuts % (Manual) Lymphocytes % (Manual) Monocytes % (Manual) Nucleated RBC % Seg Neutrophils # Seg Neutrophils # Man Monocytes # (Manual) Basophils # (Manual) PT INR APTT D-Dimer Heparin Anti-Xa Level ABG pH ABG pO2 73.2 L ABG HCO3 33.8 H ABG O2 Saturation ABG Base Excess 8.7 H ABG Hemoglobin 8.5 L Oxyhemoglobin 94.1 L Sodium Potassium Chloride Carbon Dioxide BUN Creatinine Glucose POC Glucose 166 H 136 H Hemoglobin A1c Lactic Acid Calcium Phosphorus Magnesium Ferritin AST ALT Alkaline Phosphatase Lactate Dehydrogenase Troponin T C-Reactive Protein Total Protein Albumin LDL Cholesterol Direct Urine Creatinine Urine Total Protein Salicylates Acetaminophen Crossmatch 11/09/21 11/09/21 11/09/21 15:48 16:10 20:31 WBC RBC Hgb Hct MCH RDW Plt Count Lymph % (Auto) [place] % (Auto) Lymph # (Auto) [place] # (Auto) Seg Neutrophils % Seg Neuts % (Manual) Lymphocytes % (Manual) Monocytes % (Manual) Nucleated RBC % Seg Neutrophils # Seg Neutrophils # Man Monocytes # (Manual) Basophils # (Manual) PT INR APTT D-Dimer Heparin Anti-Xa Level ABG pH ABG pO2 ABG HCO3 ABG O2 Saturation ABG Base Excess ABG Hemoglobin Oxyhemoglobin Sodium Potassium 2.8 L* Chloride Carbon Dioxide 31 H BUN 53 H Creatinine 1.3 H Glucose 208 H POC Glucose 203 H 166 H Hemoglobin A1c Lactic Acid Calcium 7.9 L Phosphorus Magnesium Ferritin AST ALT Alkaline Phosphatase Lactate Dehydrogenase Troponin T C-Reactive Protein Total Protein Albumin LDL Cholesterol Direct Urine Creatinine Urine Total Protein Salicylates Acetaminophen Crossmatch 11/09/21 11/09/21 11/09/21 21:30 23:16 Unknown WBC RBC Hgb Hct MCH RDW Plt Count Lymph % (Auto) [place] % (Auto) Lymph # (Auto) [place] # (Auto) Seg Neutrophils % Seg Neuts % (Manual) Lymphocytes % (Manual) Monocytes % (Manual) Nucleated RBC % Seg Neutrophils # Seg Neutrophils # Man Monocytes # (Manual) Basophils # (Manual) PT INR APTT D-Dimer Heparin Anti-Xa Level 0.24 L ABG pH ABG pO2 ABG HCO3 ABG O2 Saturation ABG Base Excess ABG Hemoglobin Oxyhemoglobin Sodium Potassium Chloride Carbon Dioxide BUN 52 H Creatinine 1.4 H Glucose 185 H POC Glucose 172 H Hemoglobin A1c Lactic Acid Calcium 7.8 L Phosphorus Magnesium Ferritin AST ALT Alkaline Phosphatase Lactate Dehydrogenase Troponin T C-Reactive Protein Total Protein Albumin LDL Cholesterol Direct Urine Creatinine Urine Total Protein Salicylates Acetaminophen Crossmatch 11/10/21 11/10/21 11/10/21 02:00 04:17 04:17 WBC 24.5 H RBC 2.75 L Hgb 7.5 L Hct 22.9 L MCH 27 L RDW Plt Count Lymph % (Auto) [place] % (Auto) Lymph # (Auto) [place] # (Auto) Seg Neutrophils % Seg Neuts % (Manual) Lymphocytes % (Manual) Monocytes % (Manual) Nucleated RBC % Seg Neutrophils # Seg Neutrophils # Man Monocytes # (Manual) Basophils # (Manual) PT INR APTT D-Dimer Heparin Anti-Xa Level 0.26 L ABG pH ABG pO2 ABG HCO3 ABG O2 Saturation ABG Base Excess ABG Hemoglobin Oxyhemoglobin Sodium Potassium 2.9 L* Chloride Carbon Dioxide 35 H BUN 48 H Creatinine Glucose 212 H POC Glucose Hemoglobin A1c Lactic Acid Calcium 8.1 L Phosphorus Magnesium Ferritin AST ALT Alkaline Phosphatase Lactate Dehydrogenase Troponin T C-Reactive Protein Total Protein Albumin LDL Cholesterol Direct Urine Creatinine Urine Total Protein Salicylates Acetaminophen Crossmatch 11/10/21 11/10/21 11/10/21 05:01 08:39 11:03 WBC RBC Hgb Hct MCH RDW Plt Count Lymph % (Auto) [place] % (Auto) Lymph # (Auto) [place] # (Auto) Seg Neutrophils % Seg Neuts % (Manual) Lymphocytes % (Manual) Monocytes % (Manual) Nucleated RBC % Seg Neutrophils # Seg Neutrophils # Man Monocytes # (Manual) Basophils # (Manual) PT INR APTT D-Dimer Heparin Anti-Xa Level 0.12 L ABG pH ABG pO2 ABG HCO3 ABG O2 Saturation ABG Base Excess ABG Hemoglobin Oxyhemoglobin Sodium Potassium Chloride Carbon Dioxide BUN Creatinine Glucose POC Glucose 203 H 152 H Hemoglobin A1c Lactic Acid Calcium Phosphorus Magnesium Ferritin AST ALT Alkaline Phosphatase Lactate Dehydrogenase Troponin T C-Reactive Protein Total Protein Albumin LDL Cholesterol Direct Urine Creatinine Urine Total Protein Salicylates Acetaminophen Crossmatch 11/10/21 11/10/21 11/10/21 12:45 15:43 21:05 WBC RBC Hgb Hct MCH RDW Plt Count Lymph % (Auto) [place] % (Auto) Lymph # (Auto) [place] # (Auto) Seg Neutrophils % Seg Neuts % (Manual) Lymphocytes % (Manual) Monocytes % (Manual) Nucleated RBC % Seg Neutrophils # Seg Neutrophils # Man Monocytes # (Manual) Basophils # (Manual) PT INR APTT D-Dimer Heparin Anti-Xa Level ABG pH ABG pO2 ABG HCO3 ABG O2 Saturation ABG Base Excess ABG Hemoglobin Oxyhemoglobin Sodium 146 H Potassium 3.3 L Chloride Carbon Dioxide 31 H BUN 43 H Creatinine Glucose 155 H POC Glucose 139 H 139 H Hemoglobin A1c Lactic Acid Calcium 8.3 L Phosphorus Magnesium Ferritin AST ALT Alkaline Phosphatase Lactate Dehydrogenase Troponin T C-Reactive Protein Total Protein Albumin LDL Cholesterol Direct Urine Creatinine Urine Total Protein Salicylates Acetaminophen Crossmatch 11/10/21 11/11/21 11/11/21 23:25 03:49 03:49 WBC 22.1 H RBC 2.69 L Hgb 7.2 L Hct 22.7 L MCH 27 L RDW Plt Count Lymph % (Auto) [place] % (Auto) Lymph # (Auto) [place] # (Auto) Seg Neutrophils % Seg Neuts % (Manual) Lymphocytes % (Manual) Monocytes % (Manual) Nucleated RBC % Seg Neutrophils # Seg Neutrophils # Man Monocytes # (Manual) Basophils # (Manual) PT INR APTT D-Dimer Heparin Anti-Xa Level ABG pH ABG pO2 ABG HCO3 ABG O2 Saturation ABG Base Excess ABG Hemoglobin Oxyhemoglobin Sodium Potassium Chloride Carbon Dioxide 32 H BUN 44 H Creatinine 1.3 H Glucose 173 H POC Glucose 146 H Hemoglobin A1c Lactic Acid Calcium Phosphorus Magnesium Ferritin AST ALT Alkaline Phosphatase Lactate Dehydrogenase Troponin T C-Reactive Protein Total Protein Albumin LDL Cholesterol Direct Urine Creatinine Urine Total Protein Salicylates Acetaminophen Crossmatch 11/11/21 11/11/21 11/11/21 05:03 10:50 11:32 WBC RBC Hgb Hct MCH RDW Plt Count Lymph % (Auto) [place] % (Auto) Lymph # (Auto) [place] # (Auto) Seg Neutrophils % Seg Neuts % (Manual) Lymphocytes % (Manual) Monocytes % (Manual) Nucleated RBC % Seg Neutrophils # Seg Neutrophils # Man Monocytes # (Manual) Basophils # (Manual) PT INR APTT D-Dimer Heparin Anti-Xa Level ABG pH ABG pO2 ABG HCO3 ABG O2 Saturation ABG Base Excess ABG Hemoglobin Oxyhemoglobin Sodium Potassium Chloride Carbon Dioxide BUN Creatinine Glucose POC Glucose 152 H 129 H 133 H Hemoglobin A1c Lactic Acid Calcium Phosphorus Magnesium Ferritin AST ALT Alkaline Phosphatase Lactate Dehydrogenase Troponin T C-Reactive Protein Total Protein Albumin LDL Cholesterol Direct Urine Creatinine Urine Total Protein Salicylates Acetaminophen Crossmatch 11/11/21 11/11/21 11/11/21 13:53 16:31 17:13 WBC RBC Hgb Hct MCH RDW Plt Count Lymph % (Auto) [place] % (Auto) Lymph # (Auto) [place] # (Auto) Seg Neutrophils % Seg Neuts % (Manual) Lymphocytes % (Manual) Monocytes % (Manual) Nucleated RBC % Seg Neutrophils # Seg Neutrophils # Man Monocytes # (Manual) Basophils # (Manual) PT INR APTT D-Dimer Heparin Anti-Xa Level ABG pH 7.475 H ABG pO2 64.1 L ABG HCO3 32.4 H ABG O2 Saturation ABG Base Excess 8.0 H ABG Hemoglobin 7.6 L Oxyhemoglobin 94.0 L Sodium Potassium Chloride Carbon Dioxide BUN Creatinine Glucose POC Glucose 116 H 125 H Hemoglobin A1c Lactic Acid Calcium Phosphorus Magnesium Ferritin AST ALT Alkaline Phosphatase Lactate Dehydrogenase Troponin T C-Reactive Protein Total Protein Albumin LDL Cholesterol Direct Urine Creatinine Urine Total Protein Salicylates Acetaminophen Crossmatch 11/11/21 11/11/21 11/12/21 20:40 23:35 03:30 WBC 17.7 H RBC 2.37 L Hgb 6.3 L Hct 20.0 L MCH 27 L RDW 15.5 H Plt Count Lymph % (Auto) [place] % (Auto) Lymph # (Auto) [place] # (Auto) Seg Neutrophils % Seg Neuts % (Manual) Lymphocytes % (Manual) Monocytes % (Manual) Nucleated RBC % Seg Neutrophils # Seg Neutrophils # Man Monocytes # (Manual) Basophils # (Manual) PT INR APTT D-Dimer Heparin Anti-Xa Level 0.26 L ABG pH ABG pO2 ABG HCO3 ABG O2 Saturation ABG Base Excess ABG Hemoglobin Oxyhemoglobin Sodium Potassium Chloride Carbon Dioxide BUN Creatinine Glucose POC Glucose 118 H Hemoglobin A1c Lactic Acid Calcium Phosphorus Magnesium Ferritin AST ALT Alkaline Phosphatase Lactate Dehydrogenase Troponin T C-Reactive Protein Total Protein Albumin LDL Cholesterol Direct Urine Creatinine Urine Total Protein Salicylates Acetaminophen Crossmatch 11/12/21 11/12/21 11/12/21 03:30 04:15 11:53 WBC RBC Hgb Hct MCH RDW Plt Count Lymph % (Auto) [place] % (Auto) Lymph # (Auto) [place] # (Auto) Seg Neutrophils % Seg Neuts % (Manual) Lymphocytes % (Manual) Monocytes % (Manual) Nucleated RBC % Seg Neutrophils # Seg Neutrophils # Man Monocytes # (Manual) Basophils # (Manual) PT INR APTT D-Dimer Heparin Anti-Xa Level ABG pH ABG pO2 ABG HCO3 ABG O2 Saturation ABG Base Excess ABG Hemoglobin Oxyhemoglobin Sodium Potassium Chloride Carbon Dioxide 33 H BUN 38 H Creatinine 1.3 H Glucose 102 H POC Glucose 62 L Hemoglobin A1c Lactic Acid Calcium 8.2 L Phosphorus Magnesium Ferritin AST ALT Alkaline Phosphatase Lactate Dehydrogenase Troponin T C-Reactive Protein Total Protein Albumin LDL Cholesterol Direct Urine Creatinine Urine Total Protein Salicylates Acetaminophen Crossmatch See Detail 11/12/21 11/12/21 11/12/21 17:20 19:14 23:11 WBC RBC Hgb 6.2 L Hct 19.5 L* MCH RDW Plt Count Lymph % (Auto) [place] % (Auto) Lymph # (Auto) [place] # (Auto) Seg Neutrophils % Seg Neuts % (Manual) Lymphocytes % (Manual) Monocytes % (Manual) Nucleated RBC % Seg Neutrophils # Seg Neutrophils # Man Monocytes # (Manual) Basophils # (Manual) PT INR APTT D-Dimer Heparin Anti-Xa Level ABG pH ABG pO2 ABG HCO3 ABG O2 Saturation ABG Base Excess ABG Hemoglobin Oxyhemoglobin Sodium Potassium Chloride Carbon Dioxide BUN Creatinine Glucose POC Glucose 115 H 131 H Hemoglobin A1c Lactic Acid Calcium Phosphorus Magnesium Ferritin AST ALT Alkaline Phosphatase Lactate Dehydrogenase Troponin T C-Reactive Protein Total Protein Albumin LDL Cholesterol Direct Urine Creatinine Urine Total Protein Salicylates Acetaminophen Crossmatch 11/13/21 11/13/21 11/13/21 00:13 04:17 04:17 WBC 23.8 H RBC 2.84 L Hgb 7.4 L 7.8 L Hct 23.3 L 24.9 L MCH 27 L RDW 15.4 H Plt Count Lymph % (Auto) [place] % (Auto) Lymph # (Auto) [place] # (Auto) Seg Neutrophils % Seg Neuts % (Manual) Lymphocytes % (Manual) Monocytes % (Manual) Nucleated RBC % Seg Neutrophils # Seg Neutrophils # Man Monocytes # (Manual) Basophils # (Manual) PT INR APTT D-Dimer Heparin Anti-Xa Level ABG pH ABG pO2 ABG HCO3 ABG O2 Saturation ABG Base Excess ABG Hemoglobin Oxyhemoglobin Sodium 146 H Potassium Chloride Carbon Dioxide BUN 44 H Creatinine 1.6 H Glucose 144 H POC Glucose Hemoglobin A1c Lactic Acid Calcium 7.9 L Phosphorus 5.10 H D Magnesium Ferritin AST ALT Alkaline Phosphatase Lactate Dehydrogenase Troponin T C-Reactive Protein Total Protein Albumin LDL Cholesterol Direct Urine Creatinine Urine Total Protein Salicylates Acetaminophen Crossmatch 11/13/21 11/13/21 11/13/21 05:52 10:54 15:57 WBC RBC Hgb Hct MCH RDW Plt Count Lymph % (Auto) [place] % (Auto) Lymph # (Auto) [place] # (Auto) Seg Neutrophils % Seg Neuts % (Manual) Lymphocytes % (Manual) Monocytes % (Manual) Nucleated RBC % Seg Neutrophils # Seg Neutrophils # Man Monocytes # (Manual) Basophils # (Manual) PT INR APTT D-Dimer Heparin Anti-Xa Level ABG pH ABG pO2 ABG HCO3 ABG O2 Saturation ABG Base Excess ABG Hemoglobin Oxyhemoglobin Sodium Potassium Chloride Carbon Dioxide BUN Creatinine Glucose POC Glucose 123 H 147 H 207 H Hemoglobin A1c Lactic Acid Calcium Phosphorus Magnesium Ferritin AST ALT Alkaline Phosphatase Lactate Dehydrogenase Troponin T C-Reactive Protein Total Protein Albumin LDL Cholesterol Direct Urine Creatinine Urine Total Protein Salicylates Acetaminophen Crossmatch 11/13/21 11/13/21 11/14/21 16:01 23:18 04:55 WBC 23.9 H RBC 2.86 L Hgb 6.5 L 8.3 L Hct 20.3 L 24.5 L MCH RDW Plt Count Lymph % (Auto) [place] % (Auto) Lymph # (Auto) [place] # (Auto) Seg Neutrophils % Seg Neuts % (Manual) Lymphocytes % (Manual) Monocytes % (Manual) Nucleated RBC % Seg Neutrophils # Seg Neutrophils # Man Monocytes # (Manual) Basophils # (Manual) PT INR APTT D-Dimer Heparin Anti-Xa Level ABG pH ABG pO2 ABG HCO3 ABG O2 Saturation ABG Base Excess ABG Hemoglobin Oxyhemoglobin Sodium Potassium Chloride Carbon Dioxide BUN Creatinine Glucose POC Glucose 209 H Hemoglobin A1c Lactic Acid Calcium Phosphorus Magnesium Ferritin AST ALT Alkaline Phosphatase Lactate Dehydrogenase Troponin T C-Reactive Protein Total Protein Albumin LDL Cholesterol Direct Urine Creatinine Urine Total Protein Salicylates Acetaminophen Crossmatch 11/14/21 11/14/21 11/14/21 04:55 05:09 11:35 WBC RBC Hgb Hct MCH RDW Plt Count Lymph % (Auto) [place] % (Auto) Lymph # (Auto) [place] # (Auto) Seg Neutrophils % Seg Neuts % (Manual) Lymphocytes % (Manual) Monocytes % (Manual) Nucleated RBC % Seg Neutrophils # Seg Neutrophils # Man Monocytes # (Manual) Basophils # (Manual) PT INR APTT D-Dimer Heparin Anti-Xa Level ABG pH ABG pO2 ABG HCO3 ABG O2 Saturation ABG Base Excess ABG Hemoglobin Oxyhemoglobin Sodium 148 H Potassium Chloride 109.0 H Carbon Dioxide BUN 42 H Creatinine 1.6 H Glucose 184 H POC Glucose 169 H 154 H Hemoglobin A1c Lactic Acid Calcium 8.0 L Phosphorus Magnesium Ferritin AST ALT Alkaline Phosphatase Lactate Dehydrogenase Troponin T C-Reactive Protein Total Protein Albumin LDL Cholesterol Direct Urine Creatinine Urine Total Protein Salicylates Acetaminophen Crossmatch 11/14/21 11/14/21 11/15/21 16:57 23:11 04:36 WBC RBC Hgb Hct MCH RDW Plt Count Lymph % (Auto) [place] % (Auto) Lymph # (Auto) [place] # (Auto) Seg Neutrophils % Seg Neuts % (Manual) Lymphocytes % (Manual) Monocytes % (Manual) Nucleated RBC % Seg Neutrophils # Seg Neutrophils # Man Monocytes # (Manual) Basophils # (Manual) PT INR APTT D-Dimer Heparin Anti-Xa Level ABG pH ABG pO2 ABG HCO3 ABG O2 Saturation ABG Base Excess ABG Hemoglobin Oxyhemoglobin Sodium 151 H Potassium Chloride 111.2 H Carbon Dioxide BUN 36 H Creatinine 1.3 H Glucose 136 H POC Glucose 124 H 118 H Hemoglobin A1c Lactic Acid Calcium 8.1 L Phosphorus Magnesium Ferritin AST ALT Alkaline Phosphatase Lactate Dehydrogenase Troponin T C-Reactive Protein Total Protein Albumin LDL Cholesterol Direct Urine Creatinine Urine Total Protein Salicylates Acetaminophen Crossmatch 11/15/21 11/15/21 11/16/21 11:18 21:49 00:15 WBC RBC Hgb Hct MCH RDW Plt Count Lymph % (Auto) [place] % (Auto) Lymph # (Auto) [place] # (Auto) Seg Neutrophils % Seg Neuts % (Manual) Lymphocytes % (Manual) Monocytes % (Manual) Nucleated RBC % Seg Neutrophils # Seg Neutrophils # Man Monocytes # (Manual) Basophils # (Manual) PT INR APTT D-Dimer Heparin Anti-Xa Level ABG pH ABG pO2 ABG HCO3 ABG O2 Saturation ABG Base Excess ABG Hemoglobin Oxyhemoglobin Sodium Potassium Chloride Carbon Dioxide BUN Creatinine Glucose POC Glucose 154 H 154 H 146 H Hemoglobin A1c Lactic Acid Calcium Phosphorus Magnesium Ferritin AST ALT Alkaline Phosphatase Lactate Dehydrogenase Troponin T C-Reactive Protein Total Protein Albumin LDL Cholesterol Direct Urine Creatinine Urine Total Protein Salicylates Acetaminophen Crossmatch 11/16/21 11/16/21 11/16/21 05:11 05:11 05:37 WBC 18.2 H RBC 2.92 L Hgb 8.3 L Hct 26.1 L MCH RDW 15.8 H Plt Count Lymph % (Auto) 6.3 L [place] % (Auto) 10.2 H Lymph # (Auto) [place] # (Auto) 1.9 H Seg Neutrophils % 81.7 H Seg Neuts % (Manual) Lymphocytes % (Manual) Monocytes % (Manual) Nucleated RBC % Seg Neutrophils # 14.9 H Seg Neutrophils # Man Monocytes # (Manual) Basophils # (Manual) PT INR APTT D-Dimer Heparin Anti-Xa Level ABG pH ABG pO2 ABG HCO3 ABG O2 Saturation ABG Base Excess ABG Hemoglobin Oxyhemoglobin Sodium 146 H Potassium Chloride 108.0 H Carbon Dioxide BUN 25 H Creatinine Glucose 123 H POC Glucose 109 H Hemoglobin A1c Lactic Acid Calcium 7.8 L Phosphorus Magnesium Ferritin AST ALT Alkaline Phosphatase Lactate Dehydrogenase Troponin T C-Reactive Protein Total Protein Albumin LDL Cholesterol Direct Urine Creatinine Urine Total Protein Salicylates Acetaminophen Crossmatch 11/16/21 11/16/21 11/17/21 11:22 23:55 04:33 WBC RBC Hgb Hct MCH RDW Plt Count Lymph % (Auto) [place] % (Auto) Lymph # (Auto) [place] # (Auto) Seg Neutrophils % Seg Neuts % (Manual) Lymphocytes % (Manual) Monocytes % (Manual) Nucleated RBC % Seg Neutrophils # Seg Neutrophils # Man Monocytes # (Manual) Basophils # (Manual) PT INR APTT D-Dimer Heparin Anti-Xa Level ABG pH ABG pO2 ABG HCO3 ABG O2 Saturation ABG Base Excess ABG Hemoglobin Oxyhemoglobin Sodium Potassium Chloride Carbon Dioxide BUN 20 H Creatinine Glucose POC Glucose 136 H 113 H Hemoglobin A1c Lactic Acid Calcium 7.5 L Phosphorus Magnesium Ferritin AST ALT Alkaline Phosphatase Lactate Dehydrogenase Troponin T C-Reactive Protein Total Protein Albumin LDL Cholesterol Direct Urine Creatinine Urine Total Protein Salicylates Acetaminophen Crossmatch 11/17/21 11/18/21 11/18/21 23:22 04:53 04:53 WBC 13.0 H RBC 2.99 L Hgb 8.5 L Hct 26.4 L MCH RDW Plt Count Lymph % (Auto) 9.5 L [place] % (Auto) 9.8 H Lymph # (Auto) [place] # (Auto) 1.3 H Seg Neutrophils % 78.3 H Seg Neuts % (Manual) Lymphocytes % (Manual) Monocytes % (Manual) Nucleated RBC % Seg Neutrophils # 10.2 H Seg Neutrophils # Man Monocytes # (Manual) Basophils # (Manual) PT INR APTT D-Dimer Heparin Anti-Xa Level ABG pH ABG pO2 ABG HCO3 ABG O2 Saturation ABG Base Excess ABG Hemoglobin Oxyhemoglobin Sodium Potassium Chloride Carbon Dioxide BUN 18 H Creatinine Glucose 106 H POC Glucose 112 H Hemoglobin A1c Lactic Acid Calcium 8.1 L Phosphorus Magnesium Ferritin AST ALT Alkaline Phosphatase Lactate Dehydrogenase Troponin T C-Reactive Protein Total Protein Albumin LDL Cholesterol Direct Urine Creatinine Urine Total Protein Salicylates Acetaminophen Crossmatch 11/18/21 11/18/21 11/19/21 11:35 17:42 14:38 WBC RBC Hgb Hct MCH RDW Plt Count Lymph % (Auto) [place] % (Auto) Lymph # (Auto) [place] # (Auto) Seg Neutrophils % Seg Neuts % (Manual) Lymphocytes % (Manual) Monocytes % (Manual) Nucleated RBC % Seg Neutrophils # Seg Neutrophils # Man Monocytes # (Manual) Basophils # (Manual) PT INR APTT D-Dimer Heparin Anti-Xa Level ABG pH ABG pO2 ABG HCO3 ABG O2 Saturation ABG Base Excess ABG Hemoglobin Oxyhemoglobin Sodium Potassium Chloride 97.5 L Carbon Dioxide 31 H BUN Creatinine Glucose 146 H POC Glucose 143 H 132 H Hemoglobin A1c Lactic Acid Calcium Phosphorus Magnesium 1.60 L Ferritin AST ALT Alkaline Phosphatase Lactate Dehydrogenase Troponin T C-Reactive Protein Total Protein Albumin LDL Cholesterol Direct Urine Creatinine Urine Total Protein Salicylates Acetaminophen Crossmatch 11/19/21 11/19/21 11/20/21 16:24 23:58 07:42 WBC RBC 3.01 L Hgb 8.6 L Hct 26.7 L MCH RDW 15.4 H Plt Count Lymph % (Auto) [place] % (Auto) Lymph # (Auto) [place] # (Auto) Seg Neutrophils % Seg Neuts % (Manual) Lymphocytes % (Manual) Monocytes % (Manual) Nucleated RBC % Seg Neutrophils # Seg Neutrophils # Man Monocytes # (Manual) Basophils # (Manual) PT INR APTT D-Dimer Heparin Anti-Xa Level ABG pH ABG pO2 ABG HCO3 ABG O2 Saturation ABG Base Excess ABG Hemoglobin Oxyhemoglobin Sodium Potassium Chloride Carbon Dioxide BUN Creatinine Glucose POC Glucose 129 H 125 H Hemoglobin A1c Lactic Acid Calcium Phosphorus Magnesium Ferritin AST ALT Alkaline Phosphatase Lactate Dehydrogenase Troponin T C-Reactive Protein Total Protein Albumin LDL Cholesterol Direct Urine Creatinine Urine Total Protein Salicylates Acetaminophen Crossmatch 11/20/21 11/20/21 11/20/21 07:42 11:25 22:59 WBC RBC Hgb Hct MCH RDW Plt Count Lymph % (Auto) [place] % (Auto) Lymph # (Auto) [place] # (Auto) Seg Neutrophils % Seg Neuts % (Manual) Lymphocytes % (Manual) Monocytes % (Manual) Nucleated RBC % Seg Neutrophils # Seg Neutrophils # Man Monocytes # (Manual) Basophils # (Manual) PT INR APTT D-Dimer Heparin Anti-Xa Level ABG pH ABG pO2 ABG HCO3 ABG O2 Saturation ABG Base Excess ABG Hemoglobin Oxyhemoglobin Sodium Potassium Chloride Carbon Dioxide 31 H BUN Creatinine Glucose POC Glucose 116 H 113 H Hemoglobin A1c Lactic Acid Calcium Phosphorus Magnesium Ferritin AST ALT Alkaline Phosphatase Lactate Dehydrogenase Troponin T C-Reactive Protein Total Protein Albumin LDL Cholesterol Direct Urine Creatinine Urine Total Protein Salicylates Acetaminophen Crossmatch 11/21/21 11/22/21 11/22/21 10:50 05:10 16:12 WBC RBC Hgb Hct MCH RDW Plt Count Lymph % (Auto) [place] % (Auto) Lymph # (Auto) [place] # (Auto) Seg Neutrophils % Seg Neuts % (Manual) Lymphocytes % (Manual) Monocytes % (Manual) Nucleated RBC % Seg Neutrophils # Seg Neutrophils # Man Monocytes # (Manual) Basophils # (Manual) PT INR APTT D-Dimer Heparin Anti-Xa Level ABG pH ABG pO2 ABG HCO3 ABG O2 Saturation ABG Base Excess ABG Hemoglobin Oxyhemoglobin Sodium Potassium Chloride Carbon Dioxide 32 H BUN Creatinine Glucose POC Glucose 156 H 110 H Hemoglobin A1c Lactic Acid Calcium 8.1 L Phosphorus Magnesium Ferritin AST ALT Alkaline Phosphatase Lactate Dehydrogenase Troponin T C-Reactive Protein Total Protein Albumin LDL Cholesterol Direct Urine Creatinine Urine Total Protein Salicylates Acetaminophen Crossmatch 11/23/21 11/23/21 11/23/21 07:18 07:18 11:45 WBC RBC 3.23 L Hgb 9.1 L Hct 28.5 L MCH RDW 15.6 H Plt Count Lymph % (Auto) [place] % (Auto) Lymph # (Auto) [place] # (Auto) Seg Neutrophils % Seg Neuts % (Manual) Lymphocytes % (Manual) Monocytes % (Manual) Nucleated RBC % Seg Neutrophils # Seg Neutrophils # Man Monocytes # (Manual) Basophils # (Manual) PT INR APTT D-Dimer Heparin Anti-Xa Level ABG pH ABG pO2 ABG HCO3 ABG O2 Saturation ABG Base Excess ABG Hemoglobin Oxyhemoglobin Sodium Potassium 3.3 L Chloride 96.8 L Carbon Dioxide 32 H BUN Creatinine Glucose POC Glucose 140 H Hemoglobin A1c Lactic Acid Calcium Phosphorus Magnesium Ferritin AST ALT Alkaline Phosphatase Lactate Dehydrogenase Troponin T C-Reactive Protein Total Protein Albumin LDL Cholesterol Direct Urine Creatinine Urine Total Protein Salicylates Acetaminophen Crossmatch 11/23/21 11/23/21 11/24/21 16:40 23:45 07:19 WBC RBC 3.12 L Hgb 9.3 L Hct 27.2 L MCH RDW 16.0 H Plt Count Lymph % (Auto) 10.3 L [place] % (Auto) 10.0 H Lymph # (Auto) 1.1 L [place] # (Auto) 1.1 H Seg Neutrophils % 75.2 H Seg Neuts % (Manual) Lymphocytes % (Manual) Monocytes % (Manual) Nucleated RBC % Seg Neutrophils # 7.9 H Seg Neutrophils # Man Monocytes # (Manual) Basophils # (Manual) PT INR APTT D-Dimer Heparin Anti-Xa Level ABG pH ABG pO2 ABG HCO3 ABG O2 Saturation ABG Base Excess ABG Hemoglobin Oxyhemoglobin Sodium Potassium Chloride Carbon Dioxide BUN Creatinine Glucose POC Glucose 140 H 138 H Hemoglobin A1c Lactic Acid Calcium Phosphorus Magnesium Ferritin AST ALT Alkaline Phosphatase Lactate Dehydrogenase Troponin T C-Reactive Protein Total Protein Albumin LDL Cholesterol Direct Urine Creatinine Urine Total Protein Salicylates Acetaminophen Crossmatch 11/24/21 11/24/21 11/24/21 07:19 11:49 15:54 WBC RBC Hgb Hct MCH RDW Plt Count Lymph % (Auto) [place] % (Auto) Lymph # (Auto) [place] # (Auto) Seg Neutrophils % Seg Neuts % (Manual) Lymphocytes % (Manual) Monocytes % (Manual) Nucleated RBC % Seg Neutrophils # Seg Neutrophils # Man Monocytes # (Manual) Basophils # (Manual) PT INR APTT D-Dimer Heparin Anti-Xa Level ABG pH ABG pO2 ABG HCO3 ABG O2 Saturation ABG Base Excess ABG Hemoglobin Oxyhemoglobin Sodium Potassium 3.2 L Chloride 96.7 L Carbon Dioxide BUN Creatinine Glucose 125 H POC Glucose 118 H 106 H Hemoglobin A1c Lactic Acid Calcium Phosphorus Magnesium Ferritin AST ALT Alkaline Phosphatase Lactate Dehydrogenase Troponin T C-Reactive Protein Total Protein Albumin LDL Cholesterol Direct Urine Creatinine Urine Total Protein Salicylates Acetaminophen Crossmatch 11/25/21 11/25/21 11/25/21 11:49 15:41 20:51 WBC RBC Hgb Hct MCH RDW Plt Count Lymph % (Auto) [place] % (Auto) Lymph # (Auto) [place] # (Auto) Seg Neutrophils % Seg Neuts % (Manual) Lymphocytes % (Manual) Monocytes % (Manual) Nucleated RBC % Seg Neutrophils # Seg Neutrophils # Man Monocytes # (Manual) Basophils # (Manual) PT INR APTT D-Dimer Heparin Anti-Xa Level ABG pH ABG pO2 ABG HCO3 ABG O2 Saturation ABG Base Excess ABG Hemoglobin Oxyhemoglobin Sodium Potassium Chloride Carbon Dioxide BUN Creatinine Glucose POC Glucose 119 H 110 H 109 H Hemoglobin A1c Lactic Acid Calcium Phosphorus Magnesium Ferritin AST ALT Alkaline Phosphatase Lactate Dehydrogenase Troponin T C-Reactive Protein Total Protein Albumin LDL Cholesterol Direct Urine Creatinine Urine Total Protein Salicylates Acetaminophen Crossmatch 11/26/21 11/26/21 11/26/21 07:33 11:20 17:03 WBC RBC Hgb Hct MCH RDW Plt Count Lymph % (Auto) [place] % (Auto) Lymph # (Auto) [place] # (Auto) Seg Neutrophils % Seg Neuts % (Manual) Lymphocytes % (Manual) Monocytes % (Manual) Nucleated RBC % Seg Neutrophils # Seg Neutrophils # Man Monocytes # (Manual) Basophils # (Manual) PT INR APTT D-Dimer Heparin Anti-Xa Level ABG pH ABG pO2 ABG HCO3 ABG O2 Saturation ABG Base Excess ABG Hemoglobin Oxyhemoglobin Sodium Potassium Chloride Carbon Dioxide BUN Creatinine Glucose POC Glucose 158 H 162 H 144 H Hemoglobin A1c Lactic Acid Calcium Phosphorus Magnesium Ferritin AST ALT Alkaline Phosphatase Lactate Dehydrogenase Troponin T C-Reactive Protein Total Protein Albumin LDL Cholesterol Direct Urine Creatinine Urine Total Protein Salicylates Acetaminophen Crossmatch 11/26/21 11/27/21 11/27/21 21:51 07:44 12:20 WBC RBC Hgb Hct MCH RDW Plt Count Lymph % (Auto) [place] % (Auto) Lymph # (Auto) [place] # (Auto) Seg Neutrophils % Seg Neuts % (Manual) Lymphocytes % (Manual) Monocytes % (Manual) Nucleated RBC % Seg Neutrophils # Seg Neutrophils # Man Monocytes # (Manual) Basophils # (Manual) PT INR APTT D-Dimer Heparin Anti-Xa Level ABG pH ABG pO2 ABG HCO3 ABG O2 Saturation ABG Base Excess ABG Hemoglobin Oxyhemoglobin Sodium Potassium Chloride Carbon Dioxide BUN Creatinine Glucose POC Glucose 132 H 129 H 128 H Hemoglobin A1c Lactic Acid Calcium Phosphorus Magnesium Ferritin AST ALT Alkaline Phosphatase Lactate Dehydrogenase Troponin T C-Reactive Protein Total Protein Albumin LDL Cholesterol Direct Urine Creatinine Urine Total Protein Salicylates Acetaminophen Crossmatch 11/27/21 11/27/21 11/28/21 16:44 21:35 07:54 WBC RBC Hgb Hct MCH RDW Plt Count Lymph % (Auto) [place] % (Auto) Lymph # (Auto) [place] # (Auto) Seg Neutrophils % Seg Neuts % (Manual) Lymphocytes % (Manual) Monocytes % (Manual) Nucleated RBC % Seg Neutrophils # Seg Neutrophils # Man Monocytes # (Manual) Basophils # (Manual) PT INR APTT D-Dimer Heparin Anti-Xa Level ABG pH ABG pO2 ABG HCO3 ABG O2 Saturation ABG Base Excess ABG Hemoglobin Oxyhemoglobin Sodium Potassium Chloride Carbon Dioxide BUN Creatinine Glucose POC Glucose 126 H 131 H 124 H Hemoglobin A1c Lactic Acid Calcium Phosphorus Magnesium Ferritin AST ALT Alkaline Phosphatase Lactate Dehydrogenase Troponin T C-Reactive Protein Total Protein Albumin LDL Cholesterol Direct Urine Creatinine Urine Total Protein Salicylates Acetaminophen Crossmatch 11/28/21 11/28/21 11/28/21 11:27 11:56 16:34 WBC 12.3 H RBC 3.18 L Hgb 9.2 L Hct 27.8 L MCH RDW 16.1 H Plt Count Lymph % (Auto) 10.9 L [place] % (Auto) 13.7 H Lymph # (Auto) [place] # (Auto) 1.7 H Seg Neutrophils % 72.2 H Seg Neuts % (Manual) Lymphocytes % (Manual) Monocytes % (Manual) Nucleated RBC % Seg Neutrophils # 8.9 H Seg Neutrophils # Man Monocytes # (Manual) Basophils # (Manual) PT INR APTT D-Dimer Heparin Anti-Xa Level ABG pH ABG pO2 ABG HCO3 ABG O2 Saturation ABG Base Excess ABG Hemoglobin Oxyhemoglobin Sodium Potassium Chloride Carbon Dioxide BUN Creatinine Glucose POC Glucose 131 H 123 H Hemoglobin A1c Lactic Acid Calcium Phosphorus Magnesium Ferritin AST ALT Alkaline Phosphatase Lactate Dehydrogenase Troponin T C-Reactive Protein Total Protein Albumin LDL Cholesterol Direct Urine Creatinine Urine Total Protein Salicylates Acetaminophen Crossmatch 11/28/21 11/28/21 11/29/21 19:35 21:32 07:33 WBC RBC Hgb Hct MCH RDW Plt Count Lymph % (Auto) [place] % (Auto) Lymph # (Auto) [place] # (Auto) Seg Neutrophils % Seg Neuts % (Manual) Lymphocytes % (Manual) Monocytes % (Manual) Nucleated RBC % Seg Neutrophils # Seg Neutrophils # Man Monocytes # (Manual) Basophils # (Manual) PT INR APTT D-Dimer Heparin Anti-Xa Level 0.12 L ABG pH ABG pO2 ABG HCO3 ABG O2 Saturation ABG Base Excess ABG Hemoglobin Oxyhemoglobin Sodium Potassium Chloride Carbon Dioxide BUN Creatinine Glucose POC Glucose 110 H 108 H Hemoglobin A1c Lactic Acid Calcium Phosphorus Magnesium Ferritin AST ALT Alkaline Phosphatase Lactate Dehydrogenase Troponin T C-Reactive Protein Total Protein Albumin LDL Cholesterol Direct Urine Creatinine Urine Total Protein Salicylates Acetaminophen Crossmatch 11/29/21 11/29/21 11/29/21 11:29 13:51 15:25 WBC 13.0 H RBC 3.41 L Hgb 9.5 L Hct 29.9 L MCH RDW 16.2 H Plt Count Lymph % (Auto) 11.1 L [place] % (Auto) 15.5 H Lymph # (Auto) [place] # (Auto) 2.0 H Seg Neutrophils % 71.8 H Seg Neuts % (Manual) Lymphocytes % (Manual) Monocytes % (Manual) Nucleated RBC % Seg Neutrophils # 9.3 H Seg Neutrophils # Man Monocytes # (Manual) Basophils # (Manual) PT INR APTT D-Dimer Heparin Anti-Xa Level ABG pH ABG pO2 ABG HCO3 ABG O2 Saturation ABG Base Excess ABG Hemoglobin Oxyhemoglobin Sodium Potassium Chloride Carbon Dioxide BUN Creatinine Glucose POC Glucose 136 H 123 H Hemoglobin A1c Lactic Acid Calcium Phosphorus Magnesium Ferritin AST ALT Alkaline Phosphatase Lactate Dehydrogenase Troponin T C-Reactive Protein Total Protein Albumin LDL Cholesterol Direct Urine Creatinine Urine Total Protein Salicylates Acetaminophen Crossmatch 11/29/21 11/29/21 11/29/21 18:50 18:50 20:16 WBC RBC Hgb Hct MCH RDW Plt Count Lymph % (Auto) [place] % (Auto) Lymph # (Auto) [place] # (Auto) Seg Neutrophils % Seg Neuts % (Manual) Lymphocytes % (Manual) Monocytes % (Manual) Nucleated RBC % Seg Neutrophils # Seg Neutrophils # Man Monocytes # (Manual) Basophils # (Manual) PT INR APTT D-Dimer Heparin Anti-Xa Level 0.21 L ABG pH ABG pO2 ABG HCO3 ABG O2 Saturation ABG Base Excess ABG Hemoglobin Oxyhemoglobin Sodium 126 L Potassium Chloride 86.3 L Carbon Dioxide BUN 38 H Creatinine 3.6 H Glucose 153 H POC Glucose 166 H Hemoglobin A1c Lactic Acid Calcium Phosphorus Magnesium Ferritin AST ALT Alkaline Phosphatase Lactate Dehydrogenase Troponin T C-Reactive Protein Total Protein Albumin LDL Cholesterol Direct Urine Creatinine Urine Total Protein Salicylates Acetaminophen Crossmatch 11/30/21 11/30/21 11/30/21 05:14 07:35 11:15 WBC RBC Hgb 8.7 L Hct 26.8 L MCH RDW Plt Count Lymph % (Auto) [place] % (Auto) Lymph # (Auto) [place] # (Auto) Seg Neutrophils % Seg Neuts % (Manual) Lymphocytes % (Manual) Monocytes % (Manual) Nucleated RBC % Seg Neutrophils # Seg Neutrophils # Man Monocytes # (Manual) Basophils # (Manual) PT INR APTT D-Dimer Heparin Anti-Xa Level ABG pH ABG pO2 ABG HCO3 ABG O2 Saturation ABG Base Excess ABG Hemoglobin Oxyhemoglobin Sodium Potassium Chloride Carbon Dioxide BUN Creatinine Glucose POC Glucose 114 H 119 H Hemoglobin A1c Lactic Acid Calcium Phosphorus Magnesium Ferritin AST ALT Alkaline Phosphatase Lactate Dehydrogenase Troponin T C-Reactive Protein Total Protein Albumin LDL Cholesterol Direct Urine Creatinine Urine Total Protein Salicylates Acetaminophen Crossmatch 11/30/21 11/30/21 11/30/21 15:26 17:10 18:51 WBC RBC Hgb Hct MCH RDW Plt Count Lymph % (Auto) [place] % (Auto) Lymph # (Auto) [place] # (Auto) Seg Neutrophils % Seg Neuts % (Manual) Lymphocytes % (Manual) Monocytes % (Manual) Nucleated RBC % Seg Neutrophils # Seg Neutrophils # Man Monocytes # (Manual) Basophils # (Manual) PT INR APTT D-Dimer Heparin Anti-Xa Level 0.10 L ABG pH ABG pO2 ABG HCO3 ABG O2 Saturation ABG Base Excess ABG Hemoglobin Oxyhemoglobin Sodium 126 L Potassium Chloride 86.5 L Carbon Dioxide BUN 42 H Creatinine 4.0 H Glucose 155 H POC Glucose 157 H Hemoglobin A1c Lactic Acid Calcium 8.0 L Phosphorus Magnesium Ferritin AST ALT Alkaline Phosphatase Lactate Dehydrogenase Troponin T C-Reactive Protein Total Protein Albumin LDL Cholesterol Direct Urine Creatinine Urine Total Protein Salicylates Acetaminophen Crossmatch 11/30/21 12/01/21 12/01/21 20:04 00:39 09:38 WBC 25.2 H RBC 3.06 L Hgb 8.5 L Hct 26.8 L MCH RDW 16.1 H Plt Count Lymph % (Auto) [place] % (Auto) Lymph # (Auto) [place] # (Auto) Seg Neutrophils % Seg Neuts % (Manual) 80.0 H Lymphocytes % (Manual) 9.0 L Monocytes % (Manual) Nucleated RBC % Seg Neutrophils # Seg Neutrophils # Man 20.2 H Monocytes # (Manual) 1.3 H Basophils # (Manual) PT INR APTT D-Dimer Heparin Anti-Xa Level 0.18 L ABG pH ABG pO2 ABG HCO3 ABG O2 Saturation ABG Base Excess ABG Hemoglobin Oxyhemoglobin Sodium Potassium Chloride Carbon Dioxide BUN Creatinine Glucose POC Glucose 115 H Hemoglobin A1c Lactic Acid Calcium Phosphorus Magnesium Ferritin AST ALT Alkaline Phosphatase Lactate Dehydrogenase Troponin T C-Reactive Protein Total Protein Albumin LDL Cholesterol Direct Urine Creatinine Urine Total Protein Salicylates Acetaminophen Crossmatch 12/01/21 12/01/21 12/02/21 09:38 11:35 03:22 WBC 23.3 H RBC 2.61 L Hgb 7.5 L Hct 22.8 L MCH RDW 16.1 H Plt Count Lymph % (Auto) [place] % (Auto) Lymph # (Auto) [place] # (Auto) Seg Neutrophils % Seg Neuts % (Manual) 77.0 H Lymphocytes % (Manual) 7.0 L Monocytes % (Manual) 14.0 H Nucleated RBC % Seg Neutrophils # Seg Neutrophils # Man 17.9 H Monocytes # (Manual) 3.3 H Basophils # (Manual) 0.2 H PT INR APTT D-Dimer Heparin Anti-Xa Level ABG pH ABG pO2 ABG HCO3 ABG O2 Saturation ABG Base Excess ABG Hemoglobin Oxyhemoglobin Sodium 127 L Potassium 5.1 H Chloride 87.9 L Carbon Dioxide BUN 49 H Creatinine 4.9 H Glucose 134 H POC Glucose 109 H Hemoglobin A1c Lactic Acid Calcium 7.9 L Phosphorus Magnesium Ferritin AST ALT Alkaline Phosphatase Lactate Dehydrogenase Troponin T C-Reactive Protein Total Protein Albumin LDL Cholesterol Direct Urine Creatinine Urine Total Protein Salicylates Acetaminophen Crossmatch 12/02/21 12/02/21 03:22 03:22 WBC RBC Hgb Hct MCH RDW Plt Count Lymph % (Auto) [place] % (Auto) Lymph # (Auto) [place] # (Auto) Seg Neutrophils % Seg Neuts % (Manual) Lymphocytes % (Manual) Monocytes % (Manual) Nucleated RBC % Seg Neutrophils # Seg Neutrophils # Man Monocytes # (Manual) Basophils # (Manual) PT INR APTT D-Dimer Heparin Anti-Xa Level 0.15 L ABG pH ABG pO2 ABG HCO3 ABG O2 Saturation ABG Base Excess ABG Hemoglobin Oxyhemoglobin Sodium 129 L Potassium Chloride 91.7 L Carbon Dioxide BUN 42 H Creatinine 4.4 H Glucose POC Glucose Hemoglobin A1c Lactic Acid Calcium 8.0 L Phosphorus 5.20 H Magnesium Ferritin AST ALT Alkaline Phosphatase Lactate Dehydrogenase Troponin T C-Reactive Protein Total Protein Albumin LDL Cholesterol Direct Urine Creatinine Urine Total Protein Salicylates Acetaminophen Crossmatch Chest x-ray: pending Allied health notes reviewed: nursing
[2021-12-02] MEDS: ALBUMIN HUMAN 25% (25 GM/100 ML) INJ IV PRN (11:55)
--- NOTE | 2021-12-02 13:49 | Consultation ---
History of Present Illness - Reason for Consult Consult date: 12/02/21 - History of Present Illness 66-year-old female past medical history obesity presented to hospital after loss of consciousness during roman catholic. CPR was begun as an outpatient, just transported to the hospital. She was admitted to the ICU, there was concern for septic shock secondary to aspiration pneumonia. She was eventually extubated on 11/11/2021, and was transferred to the floor on 11/19/2021. She had a Vas-Cath placed yesterday, started dialysis due to acute kidney injury likely secondary to ATN. She was also found to have acute bilateral DVTs, and IVC filter was placed on 11/22/2021. We are consulted for positive blood cultures. Febrile on 11/29/2021, however afebrile since that time. White count 23.3 which is a recent worsening. Covid negative. Blood cultures with 1 bottle coag negative staph. Cefepime and vancomycin. Currently on 2 L nasal cannula. Imaging personally reviewed: Chest CTA: Mild bibasilar atelectasis. No pulmonary embolism. CTA abdomen pelvis: Subacute appearing left-sided retroperitoneal hematoma Review of Systems: Bold if positive, otherwise negative General: fevers, chills, rigors HEENT: visual disturbance, diplopia, eye pain Respiratory: cough, sputum, hemoptysis, shortness of breath Cardiovascular: chest pain, syncope Gastrointestinal: nausea, vomiting, diarrhea, abdominal pain Genitourinary: dysuria, hematuria, flank pain Musculoskeletal: neck pain, back pain, joint pain, edema Neurologic: headaches, seizures Hematologic: easy bruising or bleeding Endocrine: night sweats, acute weight loss Skin: rash, jaundice, redness Psychiatric: suicidal, homicidal ideation Past History Past Medical History: atrial fib, DVT, renal failure, other (Morbid obesity) Past Surgical History: No surgical history Social history: single. denies: smoking, alcohol abuse, prescription drug abuse Family history: diabetes, hypertension Medications and Allergies Allergies Allergy/AdvReac Type Severity Reaction Status Date / Time No Known Allergies Allergy Verified 10/29/21 14:01 Home Medications Medication Instructions Recorded Confirmed Last Taken Type Unobtainable 11/10/21 11/10/21 Unknown History Active Meds: Active Medications Acetaminophen (Acetaminophen 650 Mg Rect Supp) 650 mg SD Q6H PRN PRN Reason: Pain MILD(1-3)/Fever >100.5/NIEVES Last Admin: 11/12/21 22:53 Dose: 650 mg Acetaminophen (Acetaminophen 325 Mg Tab) 650 mg PO Q6HR PRN PRN Reason: PAIN Last Admin: 12/02/21 09:38 Dose: 650 mg Albumin Human (Albumin Human 25% (25 Gm/100 Ml) Inj) 50 gm IV ZACH PRN PRN Reason: Hypotension Last Admin: 12/02/21 11:55 Dose: 50 gm Alprazolam (Alprazolam 0.25 Mg Tab) 0.25 mg PO Q8H PRN PRN Reason: Anxiety Last Admin: 11/27/21 11:24 Dose: 0.25 mg Dextrose (Dextrose 10% *Hypoglycemia) 0 ml IV PRN PRN PRN Reason: Hypoglycemia Last Admin: 11/12/21 05:45 Dose: 50 ml Docusate Sodium (Docusate Sodium 100 Mg Cap) 100 mg PO BID RAMON Last Admin: 12/01/21 21:32 Dose: Not Given Famotidine (Famotidine 10 Mg Tab) 10 mg PO BID RAMON Last Admin: 12/01/21 21:33 Dose: 10 mg Gabapentin (Gabapentin 100 Mg Cap) 100 mg PO Q8HR RAMON Last Admin: 12/02/21 05:18 Dose: 100 mg Heparin Sodium (Porcine) (Heparin 10,000 Units/10 Ml Vial) 4,000 unit 40 unit/kg (4300 unit) IV Q6H PRN PRN Reason: Anti-Xa Assay < 0.1 units/ml Hydrophilic Ointment (Lip Therapy Vaseline) 1 applic TP Q2HR PRN PRN Reason: Dry Lips Last Admin: 11/09/21 08:51 Dose: 1 applic Heparin Sodium/Sodium Chloride (Heparin/ 0.45% Nacl-25,000 Unit/500 Ml) 25,000 unit in 500 mls @ 30 mls/hr IV TITR RAMON; Protocol Last Titration: 12/02/21 04:38 Dose: 1,700 units/hr, 34 mls/hr Cefepime HCl (Cefepime/Ns 1 Gm/100 Ml) 1 gm in 100 mls @ 200 mls/hr IV Q24H RAMON; Protocol Last Admin: 12/01/21 15:21 Dose: 200 mls/hr Sodium Chloride (Nacl 0.9%) 100 mls @ 999 mls/hr IV ZACH PRN PRN Reason: Hypotension Vasopressin 20 unit/ Sodium (Chloride) 101 mls @ 9.09 mls/hr IV TITR RAMON; Protocol Insulin Human Lispro (Insulin Lispro 100 Unit/Ml) 0 unit SUB-Q ACHS RAMON; Protocol Last Admin: 12/01/21 22:30 Dose: Not Given Lactulose (Lactulose 20 Gm/30 Ml Oral Liqd) 20 gm PO Q6H PRN PRN Reason: Constipation Last Admin: 11/29/21 21:20 Dose: 20 gm Melatonin (Melatonin 5 Mg Tab) 10 mg PO QHS PRN PRN Reason: Sleep Last Admin: 11/27/21 21:32 Dose: 10 mg Midodrine (Midodrine 5 Mg Tab) 10 mg PO TID@0800,1200,1600 [facility] Last Admin: 12/02/21 09:37 Dose: 10 mg Morphine Sulfate (Morphine 2 Mg/1 Ml Inj) 1 mg IV Q4H PRN PRN Reason: Pain, Moderate (4-6) Last Admin: 11/29/21 07:58 Dose: 1 mg Multi-Ingred Cream/Lotion/Oil/Oint (Mineral Oil/Petrolatum, White Ophth Oint 3.5 Gm) 1 applic OU Q4HR PRN PRN Reason: Dry Eye(s) Last Admin: 11/06/21 09:25 Dose: 1 applic Oxycodone/Acetaminophen (Oxycodone /Acetaminophen 5-325mg Tab) 1 tab PO Q4H PRN PRN Reason: Pain, Moderate (4-6) Last Admin: 11/29/21 22:25 Dose: 1 tab Polyethylene Glycol (Polyethylene Glycol 3350 17 Gm Powder) 17 gm PO QDAY PRN PRN Reason: Constipation Last Admin: 11/25/21 08:30 Dose: 17 gm Senna/Docusate Sodium (Sennosides/Docusate Sodium 8.6/50 Mg Tab) 1 tab PO BID RAMON Last Admin: 12/01/21 21:32 Dose: Not Given Sodium Chloride (Sodium Chloride 0.9% 10 Ml Flush Syringe) 10 ml IV BID [facility] Last Admin: 12/01/21 21:33 Dose: 10 ml Sodium Chloride (Sodium Chloride 0.9% 10 Ml Flush Syringe) 10 ml IV PRN PRN PRN Reason: LINE FLUSH Physical Examination - Physical Exam Narrative exam: Physical Exam: Constitutional: Alert, cooperative. No acute distress Head, Ears, Nose: Normocephalic, atraumatic. External ears, nose normal Eyes: Conjunctivae/corneas clear. No icterus. No ptosis. Neck: Supple, no meningeal signs Oral: dentition fair, no thrush Cardiovascular: S1, S2 normal. Respiratory: Good air entry, clear to auscultation bilaterally GI: Soft, non-tender; bowel sounds normal. No peritoneal signs. Musculoskeletal: Bilateral pedal edema, left greater than right Skin: No rash or abscess Hem/Lymphatic: No palpable cervical or supraclavicular nodes. No lymphangitis Psych: Mood ok. Affect normal Neurological: Awake, alert, oriented. No gross abnormality - Constitutional Vitals: Vital Signs Temp Pulse Resp BP Pulse Ox 98.7 F 122 H 16 87/42 96 12/02/21 08:26 12/02/21 04:01 12/02/21 08:26 12/02/21 08:26 12/02/21 08:16 Temperature -Last 24 Hours Temperature 98.7 F Temperature 98.2 F Temperature 97.2 F Temperature 97.3 F Temperature 98.2 F Temperature 98.4 F Temperature 98.7 F Results - Labs CBC & Chem 7: 12/02/21 03:22 12/02/21 03:22 Labs: Abnormal lab results 12/02/21 12/02/21 12/02/21 Range/Units 03:22 03:22 03:22 WBC 23.3 H (4.5-11.0) K/mm3 RBC 2.61 L (3.65-5.03) M/mm3 Hgb 7.5 L (10.1-14.3) gm/dl Hct 22.8 L (30.3-42.9) % RDW 16.1 H (13.2-15.2) % Seg Neuts % (Manual) 77.0 H (40.0-70.0) % Lymphocytes % (Manual) 7.0 L (13.4-35.0) % Monocytes % (Manual) 14.0 H (0.0-7.3) % Seg Neutrophils # Man 17.9 H (1.8-7.7) K/mm3 Monocytes # (Manual) 3.3 H (0.0-0.8) K/mm3 Basophils # (Manual) 0.2 H (0.0-0.1) K/mm3 Heparin Anti-Xa Level 0.15 L (0.3-0.7) U.I./ml Sodium 129 L (137-145) mmol/L Chloride 91.7 L (98-107) mmol/L BUN 42 H (7-17) mg/dL Creatinine 4.4 H (0.6-1.2) mg/dL Calcium 8.0 L (8.4-10.2) mg/dL Phosphorus 5.20 H (2.5-4.5) mg/dL Assessment and Plan Cultures: Blood culture 11/29/2021 1 bottle coagulase-negative staph Urine culture 11/29/2021 no growth so far A/P: 66-year-old female past medical history obesity presented to the hospital after cardiac arrest: #Coagulase negative staph bacteremia: Likely contaminant, 1 of 4 bottles. #Acute leukocytosis: No clear etiology. Endorses some diarrhea, associated with stool softeners. Aside from this, only complaining of some edema. Possibly secondary to resorption of large retroperitoneal hematoma. #Retroperitoneal bleed #Cardiac arrest #SIERRA on HD: Renally dose medications. Recs: -Stop vancomycin -Follow-up urine and blood cultures -Continue cefepime empirically for now -Trend white blood cell count -If diarrhea persists after cessation of stool softeners, okay to check C. difficile Thank you for the consult, we will continue to follow. MD Jan [facility] ([facility] O: [phone] F: [phone]
[2021-12-02] MEDS ORDERED: VASOPRESSIN 20 UNIT in SODIUM CHLORIDE 0.9% 100 ML IV SCH (16:00)
[2021-12-02] MEDS: MORPHINE 2 MG/1 ML INJ IV PRN (20:02)
[2021-12-02] MEDS: INSULIN LISPRO 100 UNIT/ML SUB-Q SCH (21:04)
[2021-12-02] MEDS: DOCUSATE SODIUM 100 MG CAP PO SCH (21:32)
[2021-12-02] MEDS: FAMOTIDINE 10 MG TAB PO SCH (21:32)
[2021-12-02] MEDS: SENNOSIDES/DOCUSATE SODIUM 8.6/50 MG TAB PO SCH (21:32)
[2021-12-03 05:41] LABS: Hematocrit 23.5 % (30.3-42.9); Hemoglobin 7.4 gm/dl (10.1-14.3); Mean Corpuscular HGB Conc 31 % (30-34); Mean Corpuscular Volume 88 fl (79-97); Platelet Count 263 K/mm3 (140-440); Red Blood Count 2.69 M/mm3 (3.65-5.03); Red Cell Distribution Width 16.5 % (13.2-15.2)
[2021-12-03] MEDS: GABAPENTIN 100 MG CAP PO SCH ×4 (06:18→21:34)
[2021-12-03 06:42] LABS: Anisocytosis 1+; Band Neutrophils # (Manual) 0.1 K/mm3; Basophils % (Manual) 0.5 % (0.0-1.8); Monocytes % (Manual) 4.5 % (0.0-7.3); Platelet Estimate Consistent w Auto; Total Cells Counted 200
[2021-12-03] MEDS: oxyCODONE /ACETAMINOPHEN 5-325MG TAB PO PRN ×2 (07:45→11:52)
[2021-12-03] MEDS: MIDODRINE 5 MG TAB PO SCH ×4 (07:45→16:30)
[2021-12-03] MEDS: HEPARIN/ 0.45% NACL DRIP 25,000 UNIT/500 ML BAG IV SCH ×2 (07:49→21:47)
--- NOTE | 2021-12-03 08:56 | Progress Note ---
Assessment and Plan Acute Renal Failure secondary to Ischemic ATN secondary to Sepsis, Cardiac arrest and Hypotension S/P Cardiac Arrest Acute Hypoxemic Respiratory Failure Acute DVT Sepsis CHF Anemia Hyperkalemia Hyponatremia Plan: HD today for clearance with 1-2 L UF Hemodialysis ordered for UF and clearance after vasc cath is placed IV Albumin to help with BP support during HD Hypotension- Midodrine 10 mg po TID CHF-LVEF 25-30 % Losartan stopped Toradol stopped Anemia-KIKI as needed. Transfuse as needed Obtain daily weights Strict I/O's daily Renally dose medications Avoid nephrotoxic agents Continue to monitor renal function closely Assess dialysis needs daily Subjective Date of service: 12/03/21 Principal diagnosis: AHRF; Cardiac arrest; R. pneumothorax; pneumonia; AMS; DVT's; SIERRA; Obesity Interval history: She was transferred to ICU due to low BP Objective - Vital Signs Vital signs: Vital Signs - 12hr 12/02/21 12/02/21 12/02/21 21:00 21:27 21:30 Temperature Pulse Rate 96 H 97 H Respiratory 25 H 20 Rate Blood Pressure 106/76 120/69 O2 Sat by Pulse 98 98 99 Oximetry 12/02/21 12/02/21 12/02/21 22:00 22:30 23:00 Temperature Pulse Rate 96 H 93 H 91 H Respiratory 27 H 28 H 23 Rate Blood Pressure 123/69 123/65 123/68 O2 Sat by Pulse 99 100 99 Oximetry 12/02/21 12/02/21 12/02/21 23:30 23:38 23:50 Temperature 98.3 F Pulse Rate 90 92 H Respiratory 22 25 H Rate Blood Pressure 138/80 138/80 O2 Sat by Pulse 100 99 Oximetry 12/03/21 12/03/21 12/03/21 00:00 00:30 01:00 Temperature Pulse Rate 88 88 92 H Respiratory 18 24 23 Rate Blood Pressure 121/73 121/73 115/76 O2 Sat by Pulse 99 99 97 Oximetry 12/03/21 12/03/21 12/03/21 01:31 02:00 02:30 Temperature Pulse Rate 96 H 93 H 91 H Respiratory 22 18 21 Rate Blood Pressure 115/76 149/77 124/70 O2 Sat by Pulse 100 100 Oximetry 12/03/21 12/03/21 12/03/21 03:00 03:30 03:46 Temperature 98.6 F Pulse Rate 93 H 94 H Respiratory 18 20 Rate Blood Pressure 127/72 127/74 O2 Sat by Pulse 100 99 Oximetry 12/03/21 12/03/21 12/03/21 04:00 04:30 05:00 Temperature Pulse Rate 95 H 100 H 135 H Respiratory 19 19 24 Rate Blood Pressure 137/72 147/75 121/73 O2 Sat by Pulse 100 100 99 Oximetry 12/03/21 12/03/21 12/03/21 05:30 06:00 06:30 Temperature Pulse Rate 136 H 138 H 140 H Respiratory 32 H 28 H 27 H Rate Blood Pressure 119/88 119/80 114/81 O2 Sat by Pulse 98 96 99 Oximetry 12/03/21 12/03/21 12/03/21 07:00 07:31 08:00 Temperature Pulse Rate 138 H 105 H 109 H Respiratory 25 H 28 H 24 Rate Blood Pressure 112/78 110/71 118/89 O2 Sat by Pulse 99 99 97 Oximetry - Lab 12/03/21 05:24 12/03/21 08:00 Most recent lab results ABG pH 7.450 pH Units (7.350-7.450) 12/01/21 Unknown ABG pCO2 38.0 mm Hg 12/01/21 Unknown ABG pO2 88.9 mm Hg (80.0-90.0) 12/01/21 Unknown ABG HCO3 25.8 mmol/L (20.0-26.0) 12/01/21 Unknown ABG O2 Saturation 97.2 % (95.0-99.0) 12/01/21 Unknown Calcium 9.0 mg/dL (8.4-10.2) 12/03/21 08:00 Phosphorus 5.20 mg/dL (2.5-4.5) H 12/02/21 03:22 Magnesium 1.60 mg/dL (1.7-2.3) L 11/19/21 14:38 Urine Creatinine 190.9 mg/dL (0.1-20.0) H 11/04/21 Unknown Urine Sodium 10 mmol/L 11/04/21 Unknown Urine Total Protein 172 mg/dL (5-11.8) H 11/04/21 Unknown Medications & Allergies - Medications Allergies/Adverse Reactions: Allergies No Known Allergies Allergy (Verified 10/29/21 14:01) Home Medications: Home Medications Medication Instructions Recorded Confirmed Last Taken Type Unobtainable 11/10/21 11/10/21 Unknown History Active Medications: Generic Name Dose Route Start Last Admin Trade Name Freq PRN Reason Stop Dose Admin Acetaminophen 650 mg 10/29/21 17:04 11/12/21 22:53 Acetaminophen 650 Mg Rect Supp [place] 650 mg Q6H PRN Administration Pain MILD(1-3)/Fever >100.5/NIEVES Acetaminophen 650 mg 11/19/21 16:35 12/02/21 18:20 Acetaminophen 325 Mg Tab PO 650 mg Q6HR PRN Administration PAIN Albumin Human 50 gm 12/02/21 11:00 12/02/21 11:55 Albumin Human 25% (25 Gm/100 Ml) Inj IV 50 gm ZACH PRN Administration Hypotension Alprazolam 0.25 mg 11/14/21 14:29 11/27/21 11:24 Alprazolam 0.25 Mg Tab PO 0.25 mg Q8H PRN Administration Anxiety Dextrose 0 ml 11/04/21 13:48 11/12/21 05:45 Dextrose 10% *Hypoglycemia IV 50 ml PRN PRN Administration Hypoglycemia Docusate Sodium 100 mg 11/18/21 15:00 12/02/21 21:32 Docusate Sodium 100 Mg Cap PO Not Given BID RAMON Famotidine 10 mg 11/06/21 10:00 12/02/21 21:32 Famotidine 10 Mg Tab PO 10 mg BID RAMON Administration Gabapentin 100 mg 11/28/21 14:00 12/03/21 06:18 Gabapentin 100 Mg Cap PO 100 mg Q8HR RAMON Administration Heparin Sodium (Porcine) 4,000 unit 12/01/21 07:50 12/02/21 17:22 Heparin 10,000 Units/10 Ml Vial 40 unit/kg (4300 unit) 4,000 unit IV Administration Q6H PRN Anti-Xa Assay < 0.1 units/ml Hydrophilic Ointment 1 applic 10/29/21 14:29 11/09/21 08:51 Lip Therapy Vaseline TP 1 applic Q2HR PRN Administration Dry Lips Heparin Sodium/Sodium Chloride 25,000 unit in 500 mls @ 30 mls/hr 11/28/21 17:00 12/03/21 07:49 Heparin/ 0.45% Nacl-25,000 Unit/500 Ml IV 2,050 units/hr TITR RAMON 41 mls/hr Administration Protocol 1,500 UNITS/HR Cefepime HCl 1 gm in 100 mls @ 200 mls/hr 12/01/21 10:00 12/01/21 15:21 Cefepime/Ns 1 Gm/100 Ml IV 200 mls/hr Q24H RAMON Administration Protocol Sodium Chloride 100 mls @ 999 mls/hr 12/01/21 14:44 Nacl 0.9% IV ZACH PRN Hypotension Vasopressin 20 unit/ Sodium 101 mls @ 9.09 mls/hr 12/02/21 16:00 Chloride IV TITR RAMON Protocol 0.03 UNITS/MIN Insulin Human Lispro 0 unit 11/25/21 22:00 12/02/21 21:04 Insulin Lispro 100 Unit/Ml SUB-Q Not Given ACHS [facility] Protocol Lactulose 20 gm 11/18/21 14:43 11/29/21 21:20 Lactulose 20 Gm/30 Ml Oral Liqd PO 20 gm Q6H PRN Administration Constipation Melatonin 10 mg 11/22/21 17:31 11/27/21 21:32 Melatonin 5 Mg Tab PO 10 mg QHS PRN Administration Sleep Midodrine 10 mg 12/01/21 12:00 12/03/21 07:45 Midodrine 5 Mg Tab PO 10 mg TID@0800,1200,1600 [facility] Administration Morphine Sulfate 1 mg 11/28/21 15:00 12/02/21 20:02 Morphine 2 Mg/1 Ml Inj IV 1 mg Q4H PRN Administration Pain, Moderate (4-6) Multi-Ingred Cream/Lotion/Oil/Oint 1 applic 10/29/21 14:29 11/06/21 09:25 Mineral Oil/Petrolatum, White Ophth Oint 3.5 Gm OU 1 applic Q4HR PRN Administration Dry Eye(s) Oxycodone/Acetaminophen 1 tab 11/27/21 14:31 12/03/21 07:45 Oxycodone /Acetaminophen 5-325mg Tab PO 1 tab Q4H PRN Administration Pain, Moderate (4-6) Polyethylene Glycol 17 gm 11/20/21 12:47 11/25/21 08:30 Polyethylene Glycol 3350 17 Gm Powder PO 17 gm QDAY PRN Administration Constipation Senna/Docusate Sodium 1 tab 11/16/21 22:00 12/02/21 21:32 Sennosides/Docusate Sodium 8.6/50 Mg Tab PO Not Given BID RAMON Sodium Chloride 10 ml 10/29/21 22:00 12/02/21 21:33 Sodium Chloride 0.9% 10 Ml Flush Syringe IV 10 ml BID RAMON Administration Sodium Chloride 10 ml 10/29/21 17:04 Sodium Chloride 0.9% 10 Ml Flush Syringe IV PRN PRN LINE FLUSH
[2021-12-03] MEDS: INSULIN LISPRO 100 UNIT/ML SUB-Q SCH ×6 (09:01→22:54)
[2021-12-03] MEDS: CEFEPIME/NS 1 GM/100 ML 1 GM/100 ML BAG IV SCH ×3 (10:44→10:46)
[2021-12-03] MEDS: FAMOTIDINE 10 MG TAB PO SCH ×3 (10:46→21:34)
[2021-12-03] MEDS: SENNOSIDES/DOCUSATE SODIUM 8.6/50 MG TAB PO SCH ×3 (10:46→21:34)
[2021-12-03] MEDS: DOCUSATE SODIUM 100 MG CAP PO SCH ×3 (10:46→21:34)
--- NOTE | 2021-12-03 11:47 | Progress Note ---
Assessment and Plan Acute hypoxemic respiratory failure on MVS Cardiac arrest with ROSC Acute DVT Right pneumothorax Shock (septic +/- cardiogenic) Possible aspiration pneumonia SIERRA Altered mental status/acute encephalopathy Elevated serum transaminases, likely shock liver Metabolic acidosis Obesity Retro-peritoneal Hematoma Leukocytosis Hypokalemia Lactic acidosis - continue Cefepime - off vasopressors - continue HD/UF for toxin and volume clearance - continue Midodrine - continue anticoagulation while following H&H closely - continue BIPAP scheduled qhs with prn daytime use - OK to transfer to telemetry - continue care as below otherwise; - continue to wean supplemental oxygen for target O2 sat's > 90% acutely - aspiration precautions - continue bronchodilators with pulmonary hygiene per RT - continue accuchecks with glycemic control per SSI (While critically ill target blood glucose of 140-180 mg/dL; avoid hypoglycemia) - avoid nephrotoxins, renally dose all medications - continue to avoid benzodiazepine's, reduce the possibility of delirium - AB's per ID rec's - prn analgesia per pain score - Maintenance of sleep-wake cycle, avoid delirium - G.I. & VTE prophylaxis - PT/OT/ROM exercises - continue mobility protocols for pressure ulcer prophylaxis - Monitor hemodynamics closely - continue other care per attending / other consultants - discharge planning ongoing concurrently COVID SPECIFIC INTERVENTIONS - COVID-19 PCR negative .... Re-evaluate in am & prn Subjective Date of service: 12/03/21 Principal diagnosis: AHRF; Cardiac arrest; R. pneumothorax; pneumonia; AMS; DVT's; SIERRA; Obesity Interval history: Patient is seen today for: Acute hypoxemic respiratory failure; Cardiac arrest with ROSC; Right pneumothorax; pneumonia; AMS; bilateral DVT's; SIERRA; Obesity Seen and examined at bedside; 24hour events reviewed; nursing and respiratory care staff consulted; no adverse overnight events reported to me; resting in bed; remains on supplemental oxygen but hypotension resolved; denies N/V/F/C Objective Vital Signs - 12hr 12/02/21 12/03/21 12/03/21 23:50 00:00 00:30 Temperature 98.3 F Pulse Rate 88 88 Respiratory 18 24 Rate Blood Pressure 121/73 121/73 O2 Sat by Pulse 99 99 Oximetry 12/03/21 12/03/21 12/03/21 01:00 01:31 02:00 Temperature Pulse Rate 92 H 96 H 93 H Respiratory 23 22 18 Rate Blood Pressure 115/76 115/76 149/77 O2 Sat by Pulse 97 100 Oximetry 12/03/21 12/03/21 12/03/21 02:30 03:00 03:30 Temperature Pulse Rate 91 H 93 H 94 H Respiratory 21 18 20 Rate Blood Pressure 124/70 127/72 127/74 O2 Sat by Pulse 100 100 99 Oximetry 12/03/21 12/03/21 12/03/21 03:46 04:00 04:30 Temperature 98.6 F Pulse Rate 95 H 100 H Respiratory 19 19 Rate Blood Pressure 137/72 147/75 O2 Sat by Pulse 100 100 Oximetry 12/03/21 12/03/21 12/03/21 05:00 05:30 06:00 Temperature Pulse Rate 135 H 136 H 138 H Respiratory 24 32 H 28 H Rate Blood Pressure 121/73 119/88 119/80 O2 Sat by Pulse 99 98 96 Oximetry 12/03/21 12/03/21 12/03/21 06:30 07:00 07:31 Temperature Pulse Rate 140 H 138 H 105 H Respiratory 27 H 25 H 28 H Rate Blood Pressure 114/81 112/78 110/71 O2 Sat by Pulse 99 99 99 Oximetry 12/03/21 12/03/21 12/03/21 08:00 08:30 09:00 Temperature Pulse Rate 109 H 108 H 106 H Respiratory 24 24 23 Rate Blood Pressure 118/89 123/58 117/62 O2 Sat by Pulse 97 98 98 Oximetry 12/03/21 12/03/21 12/03/21 09:30 10:00 10:30 Temperature Pulse Rate 101 H 98 H 100 H Respiratory 26 H 17 23 Rate Blood Pressure 115/61 119/58 122/66 O2 Sat by Pulse 99 99 100 Oximetry 12/03/21 11:00 Temperature Pulse Rate 98 H Respiratory 22 Rate Blood Pressure 125/68 O2 Sat by Pulse 100 Oximetry Constitutional: no acute distress, alert, other (elderly obese female with mildly increased respiratory effort at rest ) Eyes: non-icteric ENT: oropharynx moist Neck: supple, no lymphadenopathy, no JVD, other (large circumference) Effort: mildly labored Ascultation: Bilateral: diminished breath sounds, rhonchi (bases) Percussion: Bilateral: not dull Cardiovascular: regular rate and rhythm, other (no R/M) Gastrointestinal: normoactive bowel sounds, soft, non-tender, other (obese) Integumentary: normal, other (Left flank ecchymosis with induration) Extremities: no cyanosis, pulses normal, no ischemia or petechiae, edema (2+) Neurologic: normal mental status, non-focal exam (grossly), pupils equal and round, motor strength normal and (weak) Psychiatric: mood appropriate, affect normal CBC and BMP: 12/03/21 05:24 12/03/21 08:00 ABG, PT/INR, D-dimer: ABG ABG pH 7.450 pH Units (7.350-7.450) 12/01/21 Unknown ABG pCO2 38.0 mm Hg 12/01/21 Unknown ABG pO2 88.9 mm Hg (80.0-90.0) 12/01/21 Unknown ABG O2 Saturation 97.2 % (95.0-99.0) 12/01/21 Unknown PT/INR, D-dimer PT 17.2 Sec. (12.2-14.9) H 10/30/21 16:30 INR 1.27 (0.87-1.13) H 10/30/21 16:30 D-Dimer > 88730 ng/mlDDU (0-234) H 10/30/21 Unknown Abnormal lab findings: Abnormal Labs 10/29/21 10/29/21 10/29/21 15:10 15:10 15:10 WBC 27.8 H RBC Hgb Hct MCH 27 L RDW Plt Count Lymph % (Auto) Bertie % (Auto) Lymph # (Auto) Bertie # (Auto) Seg Neutrophils % Seg Neuts % (Manual) 78.0 H Lymphocytes % (Manual) 10.0 L Monocytes % (Manual) Nucleated RBC % Seg Neutrophils # Seg Neutrophils # Man 21.7 H Monocytes # (Manual) 1.4 H Eosinophils # (Manual) Basophils # (Manual) PT INR APTT D-Dimer Heparin Anti-Xa Level ABG pH ABG pO2 ABG HCO3 ABG O2 Saturation ABG Base Excess ABG Hemoglobin Oxyhemoglobin Sodium Potassium Chloride Carbon Dioxide BUN Creatinine Glucose POC Glucose Hemoglobin A1c Lactic Acid 6.80 H* Calcium Phosphorus Magnesium Ferritin AST ALT Alkaline Phosphatase Lactate Dehydrogenase Troponin T 0.089 H C-Reactive Protein Total Protein Albumin LDL Cholesterol Direct Urine Creatinine Urine Total Protein Salicylates Acetaminophen Crossmatch 10/29/21 10/29/2122 15:10 15:10 15:10 WBC RBC Hgb Hct MCH RDW Plt Count Lymph % (Auto) Bertie % (Auto) Lymph # (Auto) Bertie # (Auto) Seg Neutrophils % Seg Neuts % (Manual) Lymphocytes % (Manual) Monocytes % (Manual) Nucleated RBC % Seg Neutrophils # Seg Neutrophils # Man Monocytes # (Manual) Eosinophils # (Manual) Basophils # (Manual) PT INR APTT D-Dimer Heparin Anti-Xa Level ABG pH ABG pO2 ABG HCO3 ABG O2 Saturation ABG Base Excess ABG Hemoglobin Oxyhemoglobin Sodium 136 L Potassium 2.8 L* Chloride 93.4 L Carbon Dioxide 20 L BUN Creatinine Glucose 330 H POC Glucose Hemoglobin A1c Lactic Acid Calcium Phosphorus Magnesium Ferritin AST 1013 H ALT 1289 H Alkaline Phosphatase 246 H Lactate Dehydrogenase Troponin T C-Reactive Protein Total Protein Albumin LDL Cholesterol Direct Urine Creatinine Urine Total Protein Salicylates < 0.3 L Acetaminophen 5.0 L Crossmatch 10/29/21 10/29/21 10/29/21 15:11 16:01 19:29 WBC RBC Hgb Hct MCH RDW Plt Count Lymph % (Auto) Bertie % (Auto) Lymph # (Auto) Bertie # (Auto) Seg Neutrophils % Seg Neuts % (Manual) Lymphocytes % (Manual) Monocytes % (Manual) Nucleated RBC % Seg Neutrophils # Seg Neutrophils # Man Monocytes # (Manual) Eosinophils # (Manual) Basophils # (Manual) PT INR APTT D-Dimer Heparin Anti-Xa Level ABG pH 7.307 L ABG pO2 64.1 L ABG HCO3 ABG O2 Saturation 90.8 L ABG Base Excess -2.9 L ABG Hemoglobin Oxyhemoglobin 89.3 L Sodium Potassium Chloride Carbon Dioxide BUN Creatinine Glucose POC Glucose Hemoglobin A1c Lactic Acid 2.60 H* Calcium Phosphorus Magnesium 2.90 H Ferritin AST ALT Alkaline Phosphatase Lactate Dehydrogenase Troponin T C-Reactive Protein Total Protein Albumin LDL Cholesterol Direct Urine Creatinine Urine Total Protein Salicylates Acetaminophen Crossmatch 10/29/21 10/29/21 10/30/21 19:40 22:34 04:30 WBC 16.2 H RBC Hgb Hct MCH 26 L RDW 15.5 H Plt Count Lymph % (Auto) 6.2 L Bertie % (Auto) Lymph # (Auto) 1.0 L Bertie # (Auto) 0.9 H Seg Neutrophils % 88.1 H Seg Neuts % (Manual) Lymphocytes % (Manual) Monocytes % (Manual) Nucleated RBC % Seg Neutrophils # 14.2 H Seg Neutrophils # Man Monocytes # (Manual) Eosinophils # (Manual) Basophils # (Manual) PT INR APTT D-Dimer Heparin Anti-Xa Level ABG pH ABG pO2 ABG HCO3 ABG O2 Saturation ABG Base Excess ABG Hemoglobin Oxyhemoglobin Sodium Potassium Chloride Carbon Dioxide BUN Creatinine Glucose POC Glucose Hemoglobin A1c Lactic Acid Calcium Phosphorus Magnesium Ferritin AST ALT Alkaline Phosphatase Lactate Dehydrogenase Troponin T 1.950 H* D 1.150 H* D C-Reactive Protein Total Protein Albumin LDL Cholesterol Direct 43 L Urine Creatinine Urine Total Protein Salicylates Acetaminophen Crossmatch 10/30/21 10/30/21 10/30/21 04:30 04:35 05:45 WBC RBC Hgb Hct MCH RDW Plt Count Lymph % (Auto) Bertie % (Auto) Lymph # (Auto) Bertie # (Auto) Seg Neutrophils % Seg Neuts % (Manual) Lymphocytes % (Manual) Monocytes % (Manual) Nucleated RBC % Seg Neutrophils # Seg Neutrophils # Man Monocytes # (Manual) Eosinophils # (Manual) Basophils # (Manual) PT INR APTT D-Dimer Heparin Anti-Xa Level ABG pH ABG pO2 69.5 L ABG HCO3 ABG O2 Saturation ABG Base Excess -2.7 L ABG Hemoglobin Oxyhemoglobin 94.7 L Sodium Potassium Chloride Carbon Dioxide 21 L BUN Creatinine Glucose 159 H POC Glucose 151 H Hemoglobin A1c Lactic Acid Calcium 7.9 L D Phosphorus Magnesium Ferritin AST 461 H ALT 686 H Alkaline Phosphatase 130 H Lactate Dehydrogenase Troponin T C-Reactive Protein Total Protein 5.6 L D Albumin 3.2 L LDL Cholesterol Direct Urine Creatinine Urine Total Protein Salicylates Acetaminophen Crossmatch 10/30/21 10/30/21 10/30/21 11:24 15:59 16:30 WBC RBC Hgb Hct MCH RDW Plt Count Lymph % (Auto) Bertie % (Auto) Lymph # (Auto) Bertie # (Auto) Seg Neutrophils % Seg Neuts % (Manual) Lymphocytes % (Manual) Monocytes % (Manual) Nucleated RBC % Seg Neutrophils # Seg Neutrophils # Man Monocytes # (Manual) Eosinophils # (Manual) Basophils # (Manual) PT 17.2 H INR 1.27 H APTT 44.4 H D-Dimer Heparin Anti-Xa Level ABG pH ABG pO2 ABG HCO3 ABG O2 Saturation ABG Base Excess ABG Hemoglobin Oxyhemoglobin Sodium Potassium Chloride Carbon Dioxide BUN Creatinine Glucose POC Glucose 153 H 109 H Hemoglobin A1c Lactic Acid Calcium Phosphorus Magnesium Ferritin AST ALT Alkaline Phosphatase Lactate Dehydrogenase Troponin T C-Reactive Protein Total Protein Albumin LDL Cholesterol Direct Urine Creatinine Urine Total Protein Salicylates Acetaminophen Crossmatch 10/30/21 10/30/21 10/30/21 23:00 Unknown Unknown WBC RBC Hgb Hct MCH RDW Plt Count Lymph % (Auto) Bertie % (Auto) Lymph # (Auto) Bertie # (Auto) Seg Neutrophils % Seg Neuts % (Manual) Lymphocytes % (Manual) Monocytes % (Manual) Nucleated RBC % Seg Neutrophils # Seg Neutrophils # Man Monocytes # (Manual) Eosinophils # (Manual) Basophils # (Manual) PT INR APTT D-Dimer > 95266 H Heparin Anti-Xa Level 0.82 H ABG pH ABG pO2 ABG HCO3 ABG O2 Saturation ABG Base Excess ABG Hemoglobin Oxyhemoglobin Sodium Potassium Chloride Carbon Dioxide BUN Creatinine Glucose POC Glucose Hemoglobin A1c Lactic Acid Calcium Phosphorus Magnesium Ferritin 208.4 H AST ALT Alkaline Phosphatase Lactate Dehydrogenase Troponin T C-Reactive Protein Total Protein Albumin LDL Cholesterol Direct Urine Creatinine Urine Total Protein Salicylates Acetaminophen Crossmatch 10/30/21 10/31/21 10/31/21 Unknown 04:30 04:30 WBC 14.4 H RBC Hgb Hct MCH 26 L RDW Plt Count Lymph % (Auto) Bertie % (Auto) Lymph # (Auto) Bertie # (Auto) Seg Neutrophils % Seg Neuts % (Manual) Lymphocytes % (Manual) Monocytes % (Manual) Nucleated RBC % Seg Neutrophils # Seg Neutrophils # Man Monocytes # (Manual) Eosinophils # (Manual) Basophils # (Manual) PT INR APTT D-Dimer Heparin Anti-Xa Level ABG pH ABG pO2 ABG HCO3 ABG O2 Saturation ABG Base Excess ABG Hemoglobin Oxyhemoglobin Sodium Potassium 3.5 L Chloride 107.5 H Carbon Dioxide 20 L BUN 28 H Creatinine 1.7 H Glucose 113 H POC Glucose Hemoglobin A1c Lactic Acid Calcium 7.9 L Phosphorus Magnesium Ferritin AST ALT Alkaline Phosphatase Lactate Dehydrogenase 469 H Troponin T C-Reactive Protein 13.40 H Total Protein Albumin LDL Cholesterol Direct Urine Creatinine Urine Total Protein Salicylates Acetaminophen Crossmatch 10/31/21 10/31/21 10/31/21 04:30 05:11 15:30 WBC RBC Hgb Hct MCH RDW Plt Count Lymph % (Auto) Bertie % (Auto) Lymph # (Auto) Bertie # (Auto) Seg Neutrophils % Seg Neuts % (Manual) Lymphocytes % (Manual) Monocytes % (Manual) Nucleated RBC % Seg Neutrophils # Seg Neutrophils # Man Monocytes # (Manual) Eosinophils # (Manual) Basophils # (Manual) PT INR APTT D-Dimer Heparin Anti-Xa Level ABG pH 7.222 L ABG pO2 61.5 L ABG HCO3 ABG O2 Saturation 86.2 L ABG Base Excess -6.3 L ABG Hemoglobin 11.2 L Oxyhemoglobin 84.5 L Sodium Potassium Chloride Carbon Dioxide BUN Creatinine Glucose POC Glucose 106 H Hemoglobin A1c 6.7 H Lactic Acid Calcium Phosphorus Magnesium Ferritin AST ALT Alkaline Phosphatase Lactate Dehydrogenase Troponin T C-Reactive Protein Total Protein Albumin LDL Cholesterol Direct Urine Creatinine Urine Total Protein Salicylates Acetaminophen Crossmatch 10/31/21 10/31/21 10/31/21 16:07 16:35 17:45 WBC RBC Hgb Hct MCH RDW Plt Count Lymph % (Auto) Bertie % (Auto) Lymph # (Auto) Bertie # (Auto) Seg Neutrophils % Seg Neuts % (Manual) Lymphocytes % (Manual) Monocytes % (Manual) Nucleated RBC % Seg Neutrophils # Seg Neutrophils # Man Monocytes # (Manual) Eosinophils # (Manual) Basophils # (Manual) PT INR APTT D-Dimer Heparin Anti-Xa Level ABG pH 7.267 L ABG pO2 58.3 L ABG HCO3 ABG O2 Saturation 88.3 L ABG Base Excess -5.9 L ABG Hemoglobin 10.1 L Oxyhemoglobin 86.5 L Sodium Potassium Chloride Carbon Dioxide BUN Creatinine Glucose POC Glucose 115 H Hemoglobin A1c Lactic Acid Calcium Phosphorus Magnesium Ferritin AST ALT Alkaline Phosphatase Lactate Dehydrogenase Troponin T C-Reactive Protein Total Protein Albumin LDL Cholesterol Direct Urine Creatinine 383.6 H Urine Total Protein Salicylates Acetaminophen Crossmatch 11/01/21 11/01/21 11/01/21 00:06 05:08 06:00 WBC 12.6 H RBC 3.43 L Hgb 8.9 L Hct 28.7 L MCH 26 L RDW 15.7 H Plt Count 130 L Lymph % (Auto) Bertie % (Auto) Lymph # (Auto) Bertie # (Auto) Seg Neutrophils % Seg Neuts % (Manual) Lymphocytes % (Manual) Monocytes % (Manual) Nucleated RBC % Seg Neutrophils # Seg Neutrophils # Man Monocytes # (Manual) Eosinophils # (Manual) Basophils # (Manual) PT INR APTT D-Dimer Heparin Anti-Xa Level ABG pH ABG pO2 ABG HCO3 ABG O2 Saturation ABG Base Excess ABG Hemoglobin Oxyhemoglobin Sodium Potassium Chloride Carbon Dioxide BUN Creatinine Glucose POC Glucose 114 H 120 H Hemoglobin A1c Lactic Acid Calcium Phosphorus Magnesium Ferritin AST ALT Alkaline Phosphatase Lactate Dehydrogenase Troponin T C-Reactive Protein Total Protein Albumin LDL Cholesterol Direct Urine Creatinine Urine Total Protein Salicylates Acetaminophen Crossmatch 11/01/21 11/01/21 11/01/21 06:00 11:43 14:00 WBC RBC Hgb Hct MCH RDW Plt Count Lymph % (Auto) Bertie % (Auto) Lymph # (Auto) Bertie # (Auto) Seg Neutrophils % Seg Neuts % (Manual) Lymphocytes % (Manual) Monocytes % (Manual) Nucleated RBC % Seg Neutrophils # Seg Neutrophils # Man Monocytes # (Manual) Eosinophils # (Manual) Basophils # (Manual) PT INR APTT D-Dimer Heparin Anti-Xa Level ABG pH 7.349 L ABG pO2 75.6 L ABG HCO3 ABG O2 Saturation ABG Base Excess -3.9 L ABG Hemoglobin 9.8 L Oxyhemoglobin 93.5 L Sodium Potassium Chloride 114.1 H Carbon Dioxide 20 L BUN 33 H Creatinine Glucose 131 H POC Glucose 151 H Hemoglobin A1c Lactic Acid Calcium 7.7 L Phosphorus Magnesium Ferritin AST 79 H ALT 259 H Alkaline Phosphatase Lactate Dehydrogenase Troponin T C-Reactive Protein Total Protein 5.5 L Albumin 2.7 L LDL Cholesterol Direct Urine Creatinine Urine Total Protein Salicylates Acetaminophen Crossmatch 11/01/21 11/01/21 11/02/21 16:45 22:55 05:12 WBC RBC Hgb Hct MCH RDW Plt Count Lymph % (Auto) Bertie % (Auto) Lymph # (Auto) Bertie # (Auto) Seg Neutrophils % Seg Neuts % (Manual) Lymphocytes % (Manual) Monocytes % (Manual) Nucleated RBC % Seg Neutrophils # Seg Neutrophils # Man Monocytes # (Manual) Eosinophils # (Manual) Basophils # (Manual) PT INR APTT D-Dimer Heparin Anti-Xa Level ABG pH ABG pO2 ABG HCO3 ABG O2 Saturation ABG Base Excess ABG Hemoglobin Oxyhemoglobin Sodium Potassium Chloride Carbon Dioxide BUN Creatinine Glucose POC Glucose 119 H 129 H 140 H Hemoglobin A1c Lactic Acid Calcium Phosphorus Magnesium Ferritin AST ALT Alkaline Phosphatase Lactate Dehydrogenase Troponin T C-Reactive Protein Total Protein Albumin LDL Cholesterol Direct Urine Creatinine Urine Total Protein Salicylates Acetaminophen Crossmatch 11/02/21 11/02/21 11/02/21 05:35 05:35 09:35 WBC 13.5 H RBC 3.60 L Hgb 9.7 L Hct MCH 27 L RDW 15.7 H Plt Count Lymph % (Auto) Bertie % (Auto) Lymph # (Auto) Bertie # (Auto) Seg Neutrophils % Seg Neuts % (Manual) Lymphocytes % (Manual) Monocytes % (Manual) Nucleated RBC % Seg Neutrophils # Seg Neutrophils # Man Monocytes # (Manual) Eosinophils # (Manual) Basophils # (Manual) PT INR APTT D-Dimer Heparin Anti-Xa Level ABG pH 7.208 L ABG pO2 75.9 L ABG HCO3 ABG O2 Saturation 93.6 L ABG Base Excess -4.3 L ABG Hemoglobin 9.1 L Oxyhemoglobin 91.6 L Sodium Potassium 5.2 H D Chloride 112.6 H Carbon Dioxide BUN 32 H Creatinine Glucose 152 H POC Glucose Hemoglobin A1c Lactic Acid Calcium 8.2 L Phosphorus Magnesium 2.70 H Ferritin AST ALT Alkaline Phosphatase Lactate Dehydrogenase Troponin T C-Reactive Protein Total Protein Albumin LDL Cholesterol Direct Urine Creatinine Urine Total Protein Salicylates Acetaminophen Crossmatch 11/02/21 11/02/21 11/02/21 11:44 17:13 23:43 WBC RBC Hgb Hct MCH RDW Plt Count Lymph % (Auto) Bertie % (Auto) Lymph # (Auto) Bertie # (Auto) Seg Neutrophils % Seg Neuts % (Manual) Lymphocytes % (Manual) Monocytes % (Manual) Nucleated RBC % Seg Neutrophils # Seg Neutrophils # Man Monocytes # (Manual) Eosinophils # (Manual) Basophils # (Manual) PT INR APTT D-Dimer Heparin Anti-Xa Level ABG pH ABG pO2 ABG HCO3 ABG O2 Saturation ABG Base Excess ABG Hemoglobin Oxyhemoglobin Sodium Potassium Chloride Carbon Dioxide BUN Creatinine Glucose POC Glucose 173 H 148 H 137 H Hemoglobin A1c Lactic Acid Calcium Phosphorus Magnesium Ferritin AST ALT Alkaline Phosphatase Lactate Dehydrogenase Troponin T C-Reactive Protein Total Protein Albumin LDL Cholesterol Direct Urine Creatinine Urine Total Protein Salicylates Acetaminophen Crossmatch 11/03/21 11/03/21 11/03/21 04:59 06:00 06:00 WBC RBC 3.43 L Hgb 9.1 L Hct 29.0 L MCH 26 L RDW 16.4 H Plt Count Lymph % (Auto) Bertie % (Auto) Lymph # (Auto) Bertie # (Auto) Seg Neutrophils % Seg Neuts % (Manual) Lymphocytes % (Manual) Monocytes % (Manual) Nucleated RBC % Seg Neutrophils # Seg Neutrophils # Man Monocytes # (Manual) Eosinophils # (Manual) Basophils # (Manual) PT INR APTT D-Dimer Heparin Anti-Xa Level 0.17 L ABG pH ABG pO2 ABG HCO3 ABG O2 Saturation ABG Base Excess ABG Hemoglobin Oxyhemoglobin Sodium Potassium Chloride Carbon Dioxide BUN Creatinine Glucose POC Glucose 167 H Hemoglobin A1c Lactic Acid Calcium Phosphorus Magnesium Ferritin AST ALT Alkaline Phosphatase Lactate Dehydrogenase Troponin T C-Reactive Protein Total Protein Albumin LDL Cholesterol Direct Urine Creatinine Urine Total Protein Salicylates Acetaminophen Crossmatch 11/03/21 11/03/21 11/03/21 06:00 09:20 11:58 WBC RBC Hgb Hct MCH RDW Plt Count Lymph % (Auto) Bertie % (Auto) Lymph # (Auto) Bertie # (Auto) Seg Neutrophils % Seg Neuts % (Manual) Lymphocytes % (Manual) Monocytes % (Manual) Nucleated RBC % Seg Neutrophils # Seg Neutrophils # Man Monocytes # (Manual) Eosinophils # (Manual) Basophils # (Manual) PT INR APTT D-Dimer Heparin Anti-Xa Level ABG pH 7.274 L ABG pO2 75.6 L ABG HCO3 ABG O2 Saturation 94.9 L ABG Base Excess -2.5 L ABG Hemoglobin 9.3 L Oxyhemoglobin 92.9 L Sodium 149 H Potassium Chloride 117.5 H Carbon Dioxide BUN 32 H Creatinine Glucose 173 H POC Glucose 192 H Hemoglobin A1c Lactic Acid Calcium 8.1 L Phosphorus Magnesium Ferritin AST ALT Alkaline Phosphatase Lactate Dehydrogenase Troponin T C-Reactive Protein Total Protein Albumin LDL Cholesterol Direct Urine Creatinine Urine Total Protein Salicylates Acetaminophen Crossmatch 11/03/21 11/03/21 11/04/21 18:22 Unknown 00:09 WBC RBC Hgb Hct MCH RDW Plt Count Lymph % (Auto) Bertie % (Auto) Lymph # (Auto) Bertie # (Auto) Seg Neutrophils % Seg Neuts % (Manual) Lymphocytes % (Manual) Monocytes % (Manual) Nucleated RBC % Seg Neutrophils # Seg Neutrophils # Man Monocytes # (Manual) Eosinophils # (Manual) Basophils # (Manual) PT INR APTT D-Dimer Heparin Anti-Xa Level 0.29 L ABG pH ABG pO2 ABG HCO3 ABG O2 Saturation ABG Base Excess ABG Hemoglobin Oxyhemoglobin Sodium Potassium Chloride Carbon Dioxide BUN Creatinine Glucose POC Glucose 178 H 221 H Hemoglobin A1c Lactic Acid Calcium Phosphorus Magnesium Ferritin AST ALT Alkaline Phosphatase Lactate Dehydrogenase Troponin T C-Reactive Protein Total Protein Albumin LDL Cholesterol Direct Urine Creatinine Urine Total Protein Salicylates Acetaminophen Crossmatch 11/04/21 11/04/21 11/04/21 05:09 09:40 09:40 WBC 16.8 H RBC Hgb Hct MCH 27 L RDW 16.5 H Plt Count Lymph % (Auto) Bertie % (Auto) Lymph # (Auto) Bertie # (Auto) Seg Neutrophils % Seg Neuts % (Manual) Lymphocytes % (Manual) Monocytes % (Manual) Nucleated RBC % Seg Neutrophils # Seg Neutrophils # Man Monocytes # (Manual) Eosinophils # (Manual) Basophils # (Manual) PT INR APTT D-Dimer Heparin Anti-Xa Level ABG pH ABG pO2 ABG HCO3 ABG O2 Saturation ABG Base Excess ABG Hemoglobin Oxyhemoglobin Sodium Potassium 5.9 H Chloride 108.5 H Carbon Dioxide BUN 54 H Creatinine 1.8 H Glucose 198 H POC Glucose 182 H Hemoglobin A1c Lactic Acid Calcium Phosphorus Magnesium 3.00 H Ferritin AST ALT Alkaline Phosphatase Lactate Dehydrogenase Troponin T C-Reactive Protein Total Protein Albumin LDL Cholesterol Direct Urine Creatinine Urine Total Protein Salicylates Acetaminophen Crossmatch 11/04/21 11/04/21 11/04/21 12:13 13:34 14:05 WBC RBC Hgb Hct MCH RDW Plt Count Lymph % (Auto) Bertie % (Auto) Lymph # (Auto) Bertie # (Auto) Seg Neutrophils % Seg Neuts % (Manual) Lymphocytes % (Manual) Monocytes % (Manual) Nucleated RBC % Seg Neutrophils # Seg Neutrophils # Man Monocytes # (Manual) Eosinophils # (Manual) Basophils # (Manual) PT INR APTT D-Dimer Heparin Anti-Xa Level ABG pH 7.223 L ABG pO2 71.3 L ABG HCO3 ABG O2 Saturation 92.8 L ABG Base Excess ABG Hemoglobin 8.2 L Oxyhemoglobin 91.0 L Sodium Potassium Chloride Carbon Dioxide BUN Creatinine Glucose POC Glucose 184 H Hemoglobin A1c Lactic Acid Calcium Phosphorus Magnesium Ferritin AST ALT Alkaline Phosphatase Lactate Dehydrogenase Troponin T C-Reactive Protein Total Protein Albumin LDL Cholesterol Direct Urine Creatinine 184.6 H Urine Total Protein Salicylates Acetaminophen Crossmatch 11/04/21 11/04/21 11/05/21 18:02 Unknown 00:07 WBC RBC Hgb Hct MCH RDW Plt Count Lymph % (Auto) Bertie % (Auto) Lymph # (Auto) Bertie # (Auto) Seg Neutrophils % Seg Neuts % (Manual) Lymphocytes % (Manual) Monocytes % (Manual) Nucleated RBC % Seg Neutrophils # Seg Neutrophils # Man Monocytes # (Manual) Eosinophils # (Manual) Basophils # (Manual) PT INR APTT D-Dimer Heparin Anti-Xa Level ABG pH ABG pO2 ABG HCO3 ABG O2 Saturation ABG Base Excess ABG Hemoglobin Oxyhemoglobin Sodium Potassium Chloride Carbon Dioxide BUN Creatinine Glucose POC Glucose 262 H 259 H Hemoglobin A1c Lactic Acid Calcium Phosphorus Magnesium Ferritin AST ALT Alkaline Phosphatase Lactate Dehydrogenase Troponin T C-Reactive Protein Total Protein Albumin LDL Cholesterol Direct Urine Creatinine 190.9 H Urine Total Protein 172 H Salicylates Acetaminophen Crossmatch 11/05/21 11/05/21 11/05/21 04:20 04:20 05:30 WBC 17.9 H RBC 3.64 L Hgb 9.7 L Hct MCH 27 L RDW 16.4 H Plt Count Lymph % (Auto) Bertie % (Auto) Lymph # (Auto) Bertie # (Auto) Seg Neutrophils % Seg Neuts % (Manual) Lymphocytes % (Manual) Monocytes % (Manual) Nucleated RBC % Seg Neutrophils # Seg Neutrophils # Man Monocytes # (Manual) Eosinophils # (Manual) Basophils # (Manual) PT INR APTT D-Dimer Heparin Anti-Xa Level ABG pH ABG pO2 ABG HCO3 ABG O2 Saturation ABG Base Excess ABG Hemoglobin Oxyhemoglobin Sodium Potassium 5.6 H Chloride 108.4 H Carbon Dioxide BUN 71 H Creatinine 1.9 H Glucose 270 H POC Glucose 283 H Hemoglobin A1c Lactic Acid Calcium Phosphorus Magnesium Ferritin AST ALT Alkaline Phosphatase Lactate Dehydrogenase Troponin T C-Reactive Protein Total Protein Albumin LDL Cholesterol Direct Urine Creatinine Urine Total Protein Salicylates Acetaminophen Crossmatch 11/05/21 11/05/21 11/05/21 10:05 12:10 15:29 WBC RBC Hgb Hct MCH RDW Plt Count Lymph % (Auto) Bertie % (Auto) Lymph # (Auto) Bertie # (Auto) Seg Neutrophils % Seg Neuts % (Manual) Lymphocytes % (Manual) Monocytes % (Manual) Nucleated RBC % Seg Neutrophils # Seg Neutrophils # Man Monocytes # (Manual) Eosinophils # (Manual) Basophils # (Manual) PT INR APTT D-Dimer Heparin Anti-Xa Level ABG pH 7.248 L ABG pO2 73.7 L ABG HCO3 26.2 H ABG O2 Saturation 93.1 L ABG Base Excess ABG Hemoglobin 8.9 L Oxyhemoglobin 91.4 L Sodium Potassium Chloride Carbon Dioxide BUN Creatinine Glucose POC Glucose 225 H 199 H Hemoglobin A1c Lactic Acid Calcium Phosphorus Magnesium Ferritin AST ALT Alkaline Phosphatase Lactate Dehydrogenase Troponin T C-Reactive Protein Total Protein Albumin LDL Cholesterol Direct Urine Creatinine Urine Total Protein Salicylates Acetaminophen Crossmatch 11/05/21 11/05/21 11/05/21 15:51 17:32 17:40 WBC RBC Hgb Hct MCH RDW Plt Count Lymph % (Auto) Bertie % (Auto) Lymph # (Auto) Bertie # (Auto) Seg Neutrophils % Seg Neuts % (Manual) Lymphocytes % (Manual) Monocytes % (Manual) Nucleated RBC % Seg Neutrophils # Seg Neutrophils # Man Monocytes # (Manual) Eosinophils # (Manual) Basophils # (Manual) PT INR APTT D-Dimer Heparin Anti-Xa Level ABG pH ABG pO2 ABG HCO3 ABG O2 Saturation ABG Base Excess ABG Hemoglobin Oxyhemoglobin Sodium Potassium 5.2 H Chloride 107.8 H Carbon Dioxide BUN 79 H Creatinine 1.9 H Glucose 204 H POC Glucose 278 H 197 H Hemoglobin A1c Lactic Acid Calcium Phosphorus Magnesium Ferritin AST ALT Alkaline Phosphatase Lactate Dehydrogenase Troponin T C-Reactive Protein Total Protein Albumin LDL Cholesterol Direct Urine Creatinine Urine Total Protein Salicylates Acetaminophen Crossmatch 11/05/21 11/05/21 11/05/21 21:25 22:22 23:43 WBC RBC Hgb Hct MCH RDW Plt Count Lymph % (Auto) Bertie % (Auto) Lymph # (Auto) Bertie # (Auto) Seg Neutrophils % Seg Neuts % (Manual) Lymphocytes % (Manual) Monocytes % (Manual) Nucleated RBC % Seg Neutrophils # Seg Neutrophils # Man Monocytes # (Manual) Eosinophils # (Manual) Basophils # (Manual) PT INR APTT D-Dimer Heparin Anti-Xa Level ABG pH ABG pO2 ABG HCO3 ABG O2 Saturation ABG Base Excess ABG Hemoglobin Oxyhemoglobin Sodium Potassium 5.3 H Chloride 109.2 H Carbon Dioxide BUN 81 H Creatinine 2.0 H Glucose 195 H POC Glucose 180 H 203 H Hemoglobin A1c Lactic Acid Calcium Phosphorus Magnesium Ferritin AST ALT Alkaline Phosphatase Lactate Dehydrogenase Troponin T C-Reactive Protein Total Protein Albumin LDL Cholesterol Direct Urine Creatinine Urine Total Protein Salicylates Acetaminophen Crossmatch 11/05/21 11/06/21 11/06/21 Unknown 02:35 05:09 WBC RBC Hgb Hct MCH RDW Plt Count Lymph % (Auto) Bertie % (Auto) Lymph # (Auto) Bertie # (Auto) Seg Neutrophils % Seg Neuts % (Manual) Lymphocytes % (Manual) Monocytes % (Manual) Nucleated RBC % Seg Neutrophils # Seg Neutrophils # Man Monocytes # (Manual) Eosinophils # (Manual) Basophils # (Manual) PT INR APTT D-Dimer Heparin Anti-Xa Level ABG pH ABG pO2 ABG HCO3 ABG O2 Saturation ABG Base Excess ABG Hemoglobin Oxyhemoglobin Sodium 146 H Potassium 6.0 H Chloride 108.1 H 107.1 H Carbon Dioxide 21 L BUN 80 H 84 H Creatinine 2.0 H 2.0 H Glucose 238 H 235 H POC Glucose 215 H Hemoglobin A1c Lactic Acid Calcium Phosphorus Magnesium 2.80 H Ferritin AST ALT 77 H Alkaline Phosphatase Lactate Dehydrogenase Troponin T C-Reactive Protein Total Protein Albumin 3.0 L LDL Cholesterol Direct Urine Creatinine Urine Total Protein Salicylates Acetaminophen Crossmatch 11/06/21 11/06/21 11/06/21 05:40 08:07 08:07 WBC RBC Hgb Hct MCH RDW Plt Count Lymph % (Auto) Bertie % (Auto) Lymph # (Auto) Bertie # (Auto) Seg Neutrophils % Seg Neuts % (Manual) Lymphocytes % (Manual) Monocytes % (Manual) Nucleated RBC % Seg Neutrophils # Seg Neutrophils # Man Monocytes # (Manual) Eosinophils # (Manual) Basophils # (Manual) PT INR APTT D-Dimer Heparin Anti-Xa Level 1.24 H ABG pH 7.311 L ABG pO2 72.8 L ABG HCO3 29.7 H ABG O2 Saturation 94.1 L ABG Base Excess ABG Hemoglobin 11.4 L Oxyhemoglobin 92.3 L Sodium Potassium 5.2 H Chloride Carbon Dioxide BUN 85 H Creatinine 2.3 H Glucose 236 H POC Glucose Hemoglobin A1c Lactic Acid Calcium Phosphorus Magnesium Ferritin AST ALT Alkaline Phosphatase Lactate Dehydrogenase Troponin T C-Reactive Protein Total Protein Albumin LDL Cholesterol Direct Urine Creatinine Urine Total Protein Salicylates Acetaminophen Crossmatch 11/06/21 11/06/21 11/06/21 12:14 12:57 14:28 WBC RBC Hgb Hct MCH RDW Plt Count Lymph % (Auto) Bertie % (Auto) Lymph # (Auto) Bertie # (Auto) Seg Neutrophils % Seg Neuts % (Manual) Lymphocytes % (Manual) Monocytes % (Manual) Nucleated RBC % Seg Neutrophils # Seg Neutrophils # Man Monocytes # (Manual) Eosinophils # (Manual) Basophils # (Manual) PT INR APTT D-Dimer Heparin Anti-Xa Level ABG pH 7.282 L ABG pO2 72.6 L ABG HCO3 30.8 H ABG O2 Saturation 93.7 L ABG Base Excess 3.2 H ABG Hemoglobin 8.6 L Oxyhemoglobin 91.8 L Sodium Potassium Chloride Carbon Dioxide BUN 91 H Creatinine 2.6 H Glucose 259 H POC Glucose 225 H Hemoglobin A1c Lactic Acid Calcium Phosphorus Magnesium Ferritin AST ALT Alkaline Phosphatase Lactate Dehydrogenase Troponin T C-Reactive Protein Total Protein Albumin LDL Cholesterol Direct Urine Creatinine Urine Total Protein Salicylates Acetaminophen Crossmatch 11/06/21 11/06/21 11/06/21 17:28 19:20 21:30 WBC RBC Hgb Hct MCH RDW Plt Count Lymph % (Auto) Bertie % (Auto) Lymph # (Auto) Bertie # (Auto) Seg Neutrophils % Seg Neuts % (Manual) Lymphocytes % (Manual) Monocytes % (Manual) Nucleated RBC % Seg Neutrophils # Seg Neutrophils # Man Monocytes # (Manual) Eosinophils # (Manual) Basophils # (Manual) PT INR APTT D-Dimer Heparin Anti-Xa Level 0.73 H ABG pH ABG pO2 ABG HCO3 ABG O2 Saturation ABG Base Excess ABG Hemoglobin Oxyhemoglobin Sodium Potassium Chloride Carbon Dioxide BUN 95 H Creatinine 2.9 H Glucose 233 H POC Glucose 206 H Hemoglobin A1c Lactic Acid Calcium Phosphorus Magnesium Ferritin AST ALT Alkaline Phosphatase Lactate Dehydrogenase Troponin T C-Reactive Protein Total Protein Albumin LDL Cholesterol Direct Urine Creatinine Urine Total Protein Salicylates Acetaminophen Crossmatch 11/06/21 11/07/21 11/07/21 22:56 05:06 06:30 WBC RBC Hgb Hct MCH RDW Plt Count Lymph % (Auto) Bertie % (Auto) Lymph # (Auto) Bertie # (Auto) Seg Neutrophils % Seg Neuts % (Manual) Lymphocytes % (Manual) Monocytes % (Manual) Nucleated RBC % Seg Neutrophils # Seg Neutrophils # Man Monocytes # (Manual) Eosinophils # (Manual) Basophils # (Manual) PT INR APTT D-Dimer Heparin Anti-Xa Level ABG pH ABG pO2 ABG HCO3 ABG O2 Saturation ABG Base Excess ABG Hemoglobin Oxyhemoglobin Sodium 146 H Potassium Chloride Carbon Dioxide BUN 98 H Creatinine 2.8 H Glucose 202 H POC Glucose 215 H 172 H Hemoglobin A1c Lactic Acid Calcium Phosphorus 4.90 H D Magnesium 2.90 H Ferritin AST ALT Alkaline Phosphatase Lactate Dehydrogenase Troponin T C-Reactive Protein Total Protein Albumin LDL Cholesterol Direct Urine Creatinine Urine Total Protein Salicylates Acetaminophen Crossmatch 11/07/21 11/07/21 11/07/21 06:30 11:26 12:15 WBC 16.0 H RBC 3.06 L Hgb 8.2 L Hct 26.1 L MCH 27 L RDW 16.2 H Plt Count Lymph % (Auto) Bertie % (Auto) Lymph # (Auto) Bertie # (Auto) Seg Neutrophils % Seg Neuts % (Manual) 77.0 H Lymphocytes % (Manual) 11.0 L Monocytes % (Manual) Nucleated RBC % 2.0 H Seg Neutrophils # Seg Neutrophils # Man 12.3 H Monocytes # (Manual) Eosinophils # (Manual) Basophils # (Manual) PT INR APTT D-Dimer Heparin Anti-Xa Level ABG pH 7.298 L ABG pO2 73.0 L ABG HCO3 33.3 H ABG O2 Saturation 94.4 L ABG Base Excess 5.8 H ABG Hemoglobin 8.2 L Oxyhemoglobin 92.7 L Sodium Potassium Chloride Carbon Dioxide BUN Creatinine Glucose POC Glucose 179 H Hemoglobin A1c Lactic Acid Calcium Phosphorus Magnesium Ferritin AST ALT Alkaline Phosphatase Lactate Dehydrogenase Troponin T C-Reactive Protein Total Protein Albumin LDL Cholesterol Direct Urine Creatinine Urine Total Protein Salicylates Acetaminophen Crossmatch 11/07/21 11/07/21 11/07/21 17:57 22:16 23:49 WBC RBC Hgb Hct MCH RDW Plt Count Lymph % (Auto) Bertie % (Auto) Lymph # (Auto) Bertie # (Auto) Seg Neutrophils % Seg Neuts % (Manual) Lymphocytes % (Manual) Monocytes % (Manual) Nucleated RBC % Seg Neutrophils # Seg Neutrophils # Man Monocytes # (Manual) Eosinophils # (Manual) Basophils # (Manual) PT INR APTT D-Dimer Heparin Anti-Xa Level ABG pH ABG pO2 ABG HCO3 ABG O2 Saturation ABG Base Excess ABG Hemoglobin Oxyhemoglobin Sodium Potassium Chloride Carbon Dioxide BUN Creatinine Glucose POC Glucose 166 H 223 H 190 H Hemoglobin A1c Lactic Acid Calcium Phosphorus Magnesium Ferritin AST ALT Alkaline Phosphatase Lactate Dehydrogenase Troponin T C-Reactive Protein Total Protein Albumin LDL Cholesterol Direct Urine Creatinine Urine Total Protein Salicylates Acetaminophen Crossmatch 11/08/21 11/08/21 11/08/21 04:20 04:20 06:16 WBC 22.1 H RBC 3.01 L Hgb 8.1 L Hct 25.6 L MCH 27 L RDW 15.4 H Plt Count Lymph % (Auto) Bertie % (Auto) Lymph # (Auto) Bertie # (Auto) Seg Neutrophils % Seg Neuts % (Manual) Lymphocytes % (Manual) Monocytes % (Manual) Nucleated RBC % Seg Neutrophils # Seg Neutrophils # Man Monocytes # (Manual) Eosinophils # (Manual) Basophils # (Manual) PT INR APTT D-Dimer Heparin Anti-Xa Level ABG pH ABG pO2 ABG HCO3 ABG O2 Saturation ABG Base Excess ABG Hemoglobin Oxyhemoglobin Sodium 151 H Potassium 3.1 L D Chloride 107.3 H Carbon Dioxide 31 H BUN 82 H Creatinine 1.8 H Glucose 232 H POC Glucose 198 H Hemoglobin A1c Lactic Acid Calcium 8.1 L Phosphorus Magnesium Ferritin AST ALT Alkaline Phosphatase Lactate Dehydrogenase Troponin T C-Reactive Protein Total Protein Albumin LDL Cholesterol Direct Urine Creatinine Urine Total Protein Salicylates Acetaminophen Crossmatch 11/08/21 11/08/21 11/08/21 11:38 12:00 18:29 WBC RBC Hgb Hct MCH RDW Plt Count Lymph % (Auto) Bertie % (Auto) Lymph # (Auto) Bertie # (Auto) Seg Neutrophils % Seg Neuts % (Manual) Lymphocytes % (Manual) Monocytes % (Manual) Nucleated RBC % Seg Neutrophils # Seg Neutrophils # Man Monocytes # (Manual) Eosinophils # (Manual) Basophils # (Manual) PT INR APTT D-Dimer Heparin Anti-Xa Level ABG pH ABG pO2 ABG HCO3 ABG O2 Saturation ABG Base Excess ABG Hemoglobin Oxyhemoglobin Sodium Potassium 3.0 L Chloride Carbon Dioxide BUN Creatinine Glucose POC Glucose 190 H 211 H Hemoglobin A1c Lactic Acid Calcium Phosphorus Magnesium Ferritin AST ALT Alkaline Phosphatase Lactate Dehydrogenase Troponin T C-Reactive Protein Total Protein Albumin LDL Cholesterol Direct Urine Creatinine Urine Total Protein Salicylates Acetaminophen Crossmatch 11/08/21 11/08/21 11/09/21 21:34 21:40 00:36 WBC RBC Hgb Hct MCH RDW Plt Count Lymph % (Auto) Bertie % (Auto) Lymph # (Auto) Bertie # (Auto) Seg Neutrophils % Seg Neuts % (Manual) Lymphocytes % (Manual) Monocytes % (Manual) Nucleated RBC % Seg Neutrophils # Seg Neutrophils # Man Monocytes # (Manual) Eosinophils # (Manual) Basophils # (Manual) PT INR APTT D-Dimer Heparin Anti-Xa Level ABG pH ABG pO2 ABG HCO3 ABG O2 Saturation ABG Base Excess ABG Hemoglobin Oxyhemoglobin Sodium 148 H Potassium 2.8 L* Chloride Carbon Dioxide 31 H BUN 68 H Creatinine 1.5 H Glucose 191 H POC Glucose 194 H 140 H Hemoglobin A1c Lactic Acid Calcium 8.2 L Phosphorus Magnesium Ferritin AST ALT Alkaline Phosphatase Lactate Dehydrogenase Troponin T C-Reactive Protein Total Protein Albumin LDL Cholesterol Direct Urine Creatinine Urine Total Protein Salicylates Acetaminophen Crossmatch 11/09/21 11/09/21 11/09/21 04:51 04:51 04:51 WBC 27.6 H RBC 3.18 L Hgb 8.4 L Hct 26.6 L MCH 27 L RDW 15.3 H Plt Count Lymph % (Auto) Bertie % (Auto) Lymph # (Auto) Bertie # (Auto) Seg Neutrophils % Seg Neuts % (Manual) Lymphocytes % (Manual) Monocytes % (Manual) Nucleated RBC % Seg Neutrophils # Seg Neutrophils # Man Monocytes # (Manual) Eosinophils # (Manual) Basophils # (Manual) PT INR APTT D-Dimer Heparin Anti-Xa Level 0.18 L ABG pH ABG pO2 ABG HCO3 ABG O2 Saturation ABG Base Excess ABG Hemoglobin Oxyhemoglobin Sodium 148 H Potassium 2.7 L* Chloride Carbon Dioxide BUN 59 H Creatinine 1.4 H Glucose 143 H POC Glucose Hemoglobin A1c Lactic Acid Calcium 8.3 L Phosphorus Magnesium Ferritin AST ALT Alkaline Phosphatase Lactate Dehydrogenase Troponin T C-Reactive Protein Total Protein Albumin LDL Cholesterol Direct Urine Creatinine Urine Total Protein Salicylates Acetaminophen Crossmatch 11/09/21 11/09/21 11/09/21 05:52 08:45 11:00 WBC RBC Hgb Hct MCH RDW Plt Count Lymph % (Auto) Bertie % (Auto) Lymph # (Auto) Bertie # (Auto) Seg Neutrophils % Seg Neuts % (Manual) Lymphocytes % (Manual) Monocytes % (Manual) Nucleated RBC % Seg Neutrophils # Seg Neutrophils # Man Monocytes # (Manual) Eosinophils # (Manual) Basophils # (Manual) PT INR APTT D-Dimer Heparin Anti-Xa Level ABG pH ABG pO2 73.2 L ABG HCO3 33.8 H ABG O2 Saturation ABG Base Excess 8.7 H ABG Hemoglobin 8.5 L Oxyhemoglobin 94.1 L Sodium Potassium Chloride Carbon Dioxide BUN Creatinine Glucose POC Glucose 166 H 136 H Hemoglobin A1c Lactic Acid Calcium Phosphorus Magnesium Ferritin AST ALT Alkaline Phosphatase Lactate Dehydrogenase Troponin T C-Reactive Protein Total Protein Albumin LDL Cholesterol Direct Urine Creatinine Urine Total Protein Salicylates Acetaminophen Crossmatch 11/09/21 11/09/21 11/09/21 15:48 16:10 20:31 WBC RBC Hgb Hct MCH RDW Plt Count Lymph % (Auto) Bertie % (Auto) Lymph # (Auto) Bertie # (Auto) Seg Neutrophils % Seg Neuts % (Manual) Lymphocytes % (Manual) Monocytes % (Manual) Nucleated RBC % Seg Neutrophils # Seg Neutrophils # Man Monocytes # (Manual) Eosinophils # (Manual) Basophils # (Manual) PT INR APTT D-Dimer Heparin Anti-Xa Level ABG pH ABG pO2 ABG HCO3 ABG O2 Saturation ABG Base Excess ABG Hemoglobin Oxyhemoglobin Sodium Potassium 2.8 L* Chloride Carbon Dioxide 31 H BUN 53 H Creatinine 1.3 H Glucose 208 H POC Glucose 203 H 166 H Hemoglobin A1c Lactic Acid Calcium 7.9 L Phosphorus Magnesium Ferritin AST ALT Alkaline Phosphatase Lactate Dehydrogenase Troponin T C-Reactive Protein Total Protein Albumin LDL Cholesterol Direct Urine Creatinine Urine Total Protein Salicylates Acetaminophen Crossmatch 11/09/21 11/09/21 11/09/21 21:30 23:16 Unknown WBC RBC Hgb Hct MCH RDW Plt Count Lymph % (Auto) Bertie % (Auto) Lymph # (Auto) Bertie # (Auto) Seg Neutrophils % Seg Neuts % (Manual) Lymphocytes % (Manual) Monocytes % (Manual) Nucleated RBC % Seg Neutrophils # Seg Neutrophils # Man Monocytes # (Manual) Eosinophils # (Manual) Basophils # (Manual) PT INR APTT D-Dimer Heparin Anti-Xa Level 0.24 L ABG pH ABG pO2 ABG HCO3 ABG O2 Saturation ABG Base Excess ABG Hemoglobin Oxyhemoglobin Sodium Potassium Chloride Carbon Dioxide BUN 52 H Creatinine 1.4 H Glucose 185 H POC Glucose 172 H Hemoglobin A1c Lactic Acid Calcium 7.8 L Phosphorus Magnesium Ferritin AST ALT Alkaline Phosphatase Lactate Dehydrogenase Troponin T C-Reactive Protein Total Protein Albumin LDL Cholesterol Direct Urine Creatinine Urine Total Protein Salicylates Acetaminophen Crossmatch 11/10/21 11/10/21 11/10/21 02:00 04:17 04:17 WBC 24.5 H RBC 2.75 L Hgb 7.5 L Hct 22.9 L MCH 27 L RDW Plt Count Lymph % (Auto) Bertie % (Auto) Lymph # (Auto) Bertie # (Auto) Seg Neutrophils % Seg Neuts % (Manual) Lymphocytes % (Manual) Monocytes % (Manual) Nucleated RBC % Seg Neutrophils # Seg Neutrophils # Man Monocytes # (Manual) Eosinophils # (Manual) Basophils # (Manual) PT INR APTT D-Dimer Heparin Anti-Xa Level 0.26 L ABG pH ABG pO2 ABG HCO3 ABG O2 Saturation ABG Base Excess ABG Hemoglobin Oxyhemoglobin Sodium Potassium 2.9 L* Chloride Carbon Dioxide 35 H BUN 48 H Creatinine Glucose 212 H POC Glucose Hemoglobin A1c Lactic Acid Calcium 8.1 L Phosphorus Magnesium Ferritin AST ALT Alkaline Phosphatase Lactate Dehydrogenase Troponin T C-Reactive Protein Total Protein Albumin LDL Cholesterol Direct Urine Creatinine Urine Total Protein Salicylates Acetaminophen Crossmatch 11/10/21 11/10/21 11/10/21 05:01 08:39 11:03 WBC RBC Hgb Hct MCH RDW Plt Count Lymph % (Auto) Bertie % (Auto) Lymph # (Auto) Bertie # (Auto) Seg Neutrophils % Seg Neuts % (Manual) Lymphocytes % (Manual) Monocytes % (Manual) Nucleated RBC % Seg Neutrophils # Seg Neutrophils # Man Monocytes # (Manual) Eosinophils # (Manual) Basophils # (Manual) PT INR APTT D-Dimer Heparin Anti-Xa Level 0.12 L ABG pH ABG pO2 ABG HCO3 ABG O2 Saturation ABG Base Excess ABG Hemoglobin Oxyhemoglobin Sodium Potassium Chloride Carbon Dioxide BUN Creatinine Glucose POC Glucose 203 H 152 H Hemoglobin A1c Lactic Acid Calcium Phosphorus Magnesium Ferritin AST ALT Alkaline Phosphatase Lactate Dehydrogenase Troponin T C-Reactive Protein Total Protein Albumin LDL Cholesterol Direct Urine Creatinine Urine Total Protein Salicylates Acetaminophen Crossmatch 11/10/21 11/10/21 11/10/21 12:45 15:43 21:05 WBC RBC Hgb Hct MCH RDW Plt Count Lymph % (Auto) Bertie % (Auto) Lymph # (Auto) Bertie # (Auto) Seg Neutrophils % Seg Neuts % (Manual) Lymphocytes % (Manual) Monocytes % (Manual) Nucleated RBC % Seg Neutrophils # Seg Neutrophils # Man Monocytes # (Manual) Eosinophils # (Manual) Basophils # (Manual) PT INR APTT D-Dimer Heparin Anti-Xa Level ABG pH ABG pO2 ABG HCO3 ABG O2 Saturation ABG Base Excess ABG Hemoglobin Oxyhemoglobin Sodium 146 H Potassium 3.3 L Chloride Carbon Dioxide 31 H BUN 43 H Creatinine Glucose 155 H POC Glucose 139 H 139 H Hemoglobin A1c Lactic Acid Calcium 8.3 L Phosphorus Magnesium Ferritin AST ALT Alkaline Phosphatase Lactate Dehydrogenase Troponin T C-Reactive Protein Total Protein Albumin LDL Cholesterol Direct Urine Creatinine Urine Total Protein Salicylates Acetaminophen Crossmatch 11/10/21 11/11/21 11/11/21 23:25 03:49 03:49 WBC 22.1 H RBC 2.69 L Hgb 7.2 L Hct 22.7 L MCH 27 L RDW Plt Count Lymph % (Auto) Bertie % (Auto) Lymph # (Auto) Bertie # (Auto) Seg Neutrophils % Seg Neuts % (Manual) Lymphocytes % (Manual) Monocytes % (Manual) Nucleated RBC % Seg Neutrophils # Seg Neutrophils # Man Monocytes # (Manual) Eosinophils # (Manual) Basophils # (Manual) PT INR APTT D-Dimer Heparin Anti-Xa Level ABG pH ABG pO2 ABG HCO3 ABG O2 Saturation ABG Base Excess ABG Hemoglobin Oxyhemoglobin Sodium Potassium Chloride Carbon Dioxide 32 H BUN 44 H Creatinine 1.3 H Glucose 173 H POC Glucose 146 H Hemoglobin A1c Lactic Acid Calcium Phosphorus Magnesium Ferritin AST ALT Alkaline Phosphatase Lactate Dehydrogenase Troponin T C-Reactive Protein Total Protein Albumin LDL Cholesterol Direct Urine Creatinine Urine Total Protein Salicylates Acetaminophen Crossmatch 11/11/21 11/11/21 11/11/21 05:03 10:50 11:32 WBC RBC Hgb Hct MCH RDW Plt Count Lymph % (Auto) Bertie % (Auto) Lymph # (Auto) Bertie # (Auto) Seg Neutrophils % Seg Neuts % (Manual) Lymphocytes % (Manual) Monocytes % (Manual) Nucleated RBC % Seg Neutrophils # Seg Neutrophils # Man Monocytes # (Manual) Eosinophils # (Manual) Basophils # (Manual) PT INR APTT D-Dimer Heparin Anti-Xa Level ABG pH ABG pO2 ABG HCO3 ABG O2 Saturation ABG Base Excess ABG Hemoglobin Oxyhemoglobin Sodium Potassium Chloride Carbon Dioxide BUN Creatinine Glucose POC Glucose 152 H 129 H 133 H Hemoglobin A1c Lactic Acid Calcium Phosphorus Magnesium Ferritin AST ALT Alkaline Phosphatase Lactate Dehydrogenase Troponin T C-Reactive Protein Total Protein Albumin LDL Cholesterol Direct Urine Creatinine Urine Total Protein Salicylates Acetaminophen Crossmatch 11/11/21 11/11/21 11/11/21 13:53 16:31 17:13 WBC RBC Hgb Hct MCH RDW Plt Count Lymph % (Auto) Bertie % (Auto) Lymph # (Auto) Bertie # (Auto) Seg Neutrophils % Seg Neuts % (Manual) Lymphocytes % (Manual) Monocytes % (Manual) Nucleated RBC % Seg Neutrophils # Seg Neutrophils # Man Monocytes # (Manual) Eosinophils # (Manual) Basophils # (Manual) PT INR APTT D-Dimer Heparin Anti-Xa Level ABG pH 7.475 H ABG pO2 64.1 L ABG HCO3 32.4 H ABG O2 Saturation ABG Base Excess 8.0 H ABG Hemoglobin 7.6 L Oxyhemoglobin 94.0 L Sodium Potassium Chloride Carbon Dioxide BUN Creatinine Glucose POC Glucose 116 H 125 H Hemoglobin A1c Lactic Acid Calcium Phosphorus Magnesium Ferritin AST ALT Alkaline Phosphatase Lactate Dehydrogenase Troponin T C-Reactive Protein Total Protein Albumin LDL Cholesterol Direct Urine Creatinine Urine Total Protein Salicylates Acetaminophen Crossmatch 11/11/21 11/11/21 11/12/21 20:40 23:35 03:30 WBC 17.7 H RBC 2.37 L Hgb 6.3 L Hct 20.0 L MCH 27 L RDW 15.5 H Plt Count Lymph % (Auto) Bertie % (Auto) Lymph # (Auto) Bertie # (Auto) Seg Neutrophils % Seg Neuts % (Manual) Lymphocytes % (Manual) Monocytes % (Manual) Nucleated RBC % Seg Neutrophils # Seg Neutrophils # Man Monocytes # (Manual) Eosinophils # (Manual) Basophils # (Manual) PT INR APTT D-Dimer Heparin Anti-Xa Level 0.26 L ABG pH ABG pO2 ABG HCO3 ABG O2 Saturation ABG Base Excess ABG Hemoglobin Oxyhemoglobin Sodium Potassium Chloride Carbon Dioxide BUN Creatinine Glucose POC Glucose 118 H Hemoglobin A1c Lactic Acid Calcium Phosphorus Magnesium Ferritin AST ALT Alkaline Phosphatase Lactate Dehydrogenase Troponin T C-Reactive Protein Total Protein Albumin LDL Cholesterol Direct Urine Creatinine Urine Total Protein Salicylates Acetaminophen Crossmatch 11/12/21 11/12/21 11/12/21 03:30 04:15 11:53 WBC RBC Hgb Hct MCH RDW Plt Count Lymph % (Auto) Bertie % (Auto) Lymph # (Auto) Bertie # (Auto) Seg Neutrophils % Seg Neuts % (Manual) Lymphocytes % (Manual) Monocytes % (Manual) Nucleated RBC % Seg Neutrophils # Seg Neutrophils # Man Monocytes # (Manual) Eosinophils # (Manual) Basophils # (Manual) PT INR APTT D-Dimer Heparin Anti-Xa Level ABG pH ABG pO2 ABG HCO3 ABG O2 Saturation ABG Base Excess ABG Hemoglobin Oxyhemoglobin Sodium Potassium Chloride Carbon Dioxide 33 H BUN 38 H Creatinine 1.3 H Glucose 102 H POC Glucose 62 L Hemoglobin A1c Lactic Acid Calcium 8.2 L Phosphorus Magnesium Ferritin AST ALT Alkaline Phosphatase Lactate Dehydrogenase Troponin T C-Reactive Protein Total Protein Albumin LDL Cholesterol Direct Urine Creatinine Urine Total Protein Salicylates Acetaminophen Crossmatch See Detail 11/12/21 11/12/21 11/12/21 17:20 19:14 23:11 WBC RBC Hgb 6.2 L Hct 19.5 L* MCH RDW Plt Count Lymph % (Auto) Bertie % (Auto) Lymph # (Auto) Bertie # (Auto) Seg Neutrophils % Seg Neuts % (Manual) Lymphocytes % (Manual) Monocytes % (Manual) Nucleated RBC % Seg Neutrophils # Seg Neutrophils # Man Monocytes # (Manual) Eosinophils # (Manual) Basophils # (Manual) PT INR APTT D-Dimer Heparin Anti-Xa Level ABG pH ABG pO2 ABG HCO3 ABG O2 Saturation ABG Base Excess ABG Hemoglobin Oxyhemoglobin Sodium Potassium Chloride Carbon Dioxide BUN Creatinine Glucose POC Glucose 115 H 131 H Hemoglobin A1c Lactic Acid Calcium Phosphorus Magnesium Ferritin AST ALT Alkaline Phosphatase Lactate Dehydrogenase Troponin T C-Reactive Protein Total Protein Albumin LDL Cholesterol Direct Urine Creatinine Urine Total Protein Salicylates Acetaminophen Crossmatch 11/13/21 11/13/21 11/13/21 00:13 04:17 04:17 WBC 23.8 H RBC 2.84 L Hgb 7.4 L 7.8 L Hct 23.3 L 24.9 L MCH 27 L RDW 15.4 H Plt Count Lymph % (Auto) Bertie % (Auto) Lymph # (Auto) Bertie # (Auto) Seg Neutrophils % Seg Neuts % (Manual) Lymphocytes % (Manual) Monocytes % (Manual) Nucleated RBC % Seg Neutrophils # Seg Neutrophils # Man Monocytes # (Manual) Eosinophils # (Manual) Basophils # (Manual) PT INR APTT D-Dimer Heparin Anti-Xa Level ABG pH ABG pO2 ABG HCO3 ABG O2 Saturation ABG Base Excess ABG Hemoglobin Oxyhemoglobin Sodium 146 H Potassium Chloride Carbon Dioxide BUN 44 H Creatinine 1.6 H Glucose 144 H POC Glucose Hemoglobin A1c Lactic Acid Calcium 7.9 L Phosphorus 5.10 H D Magnesium Ferritin AST ALT Alkaline Phosphatase Lactate Dehydrogenase Troponin T C-Reactive Protein Total Protein Albumin LDL Cholesterol Direct Urine Creatinine Urine Total Protein Salicylates Acetaminophen Crossmatch 11/13/21 11/13/21 11/13/21 05:52 10:54 15:57 WBC RBC Hgb Hct MCH RDW Plt Count Lymph % (Auto) Bertie % (Auto) Lymph # (Auto) Bertie # (Auto) Seg Neutrophils % Seg Neuts % (Manual) Lymphocytes % (Manual) Monocytes % (Manual) Nucleated RBC % Seg Neutrophils # Seg Neutrophils # Man Monocytes # (Manual) Eosinophils # (Manual) Basophils # (Manual) PT INR APTT D-Dimer Heparin Anti-Xa Level ABG pH ABG pO2 ABG HCO3 ABG O2 Saturation ABG Base Excess ABG Hemoglobin Oxyhemoglobin Sodium Potassium Chloride Carbon Dioxide BUN Creatinine Glucose POC Glucose 123 H 147 H 207 H Hemoglobin A1c Lactic Acid Calcium Phosphorus Magnesium Ferritin AST ALT Alkaline Phosphatase Lactate Dehydrogenase Troponin T C-Reactive Protein Total Protein Albumin LDL Cholesterol Direct Urine Creatinine Urine Total Protein Salicylates Acetaminophen Crossmatch 11/13/21 11/13/21 11/14/21 16:01 23:18 04:55 WBC 23.9 H RBC 2.86 L Hgb 6.5 L 8.3 L Hct 20.3 L 24.5 L MCH RDW Plt Count Lymph % (Auto) Bertie % (Auto) Lymph # (Auto) Bertie # (Auto) Seg Neutrophils % Seg Neuts % (Manual) Lymphocytes % (Manual) Monocytes % (Manual) Nucleated RBC % Seg Neutrophils # Seg Neutrophils # Man Monocytes # (Manual) Eosinophils # (Manual) Basophils # (Manual) PT INR APTT D-Dimer Heparin Anti-Xa Level ABG pH ABG pO2 ABG HCO3 ABG O2 Saturation ABG Base Excess ABG Hemoglobin Oxyhemoglobin Sodium Potassium Chloride Carbon Dioxide BUN Creatinine Glucose POC Glucose 209 H Hemoglobin A1c Lactic Acid Calcium Phosphorus Magnesium Ferritin AST ALT Alkaline Phosphatase Lactate Dehydrogenase Troponin T C-Reactive Protein Total Protein Albumin LDL Cholesterol Direct Urine Creatinine Urine Total Protein Salicylates Acetaminophen Crossmatch 11/14/21 11/14/21 11/14/21 04:55 05:09 11:35 WBC RBC Hgb Hct MCH RDW Plt Count Lymph % (Auto) Bertie % (Auto) Lymph # (Auto) Bertie # (Auto) Seg Neutrophils % Seg Neuts % (Manual) Lymphocytes % (Manual) Monocytes % (Manual) Nucleated RBC % Seg Neutrophils # Seg Neutrophils # Man Monocytes # (Manual) Eosinophils # (Manual) Basophils # (Manual) PT INR APTT D-Dimer Heparin Anti-Xa Level ABG pH ABG pO2 ABG HCO3 ABG O2 Saturation ABG Base Excess ABG Hemoglobin Oxyhemoglobin Sodium 148 H Potassium Chloride 109.0 H Carbon Dioxide BUN 42 H Creatinine 1.6 H Glucose 184 H POC Glucose 169 H 154 H Hemoglobin A1c Lactic Acid Calcium 8.0 L Phosphorus Magnesium Ferritin AST ALT Alkaline Phosphatase Lactate Dehydrogenase Troponin T C-Reactive Protein Total Protein Albumin LDL Cholesterol Direct Urine Creatinine Urine Total Protein Salicylates Acetaminophen Crossmatch 11/14/21 11/14/21 11/15/21 16:57 23:11 04:36 WBC RBC Hgb Hct MCH RDW Plt Count Lymph % (Auto) Bertie % (Auto) Lymph # (Auto) Bertie # (Auto) Seg Neutrophils % Seg Neuts % (Manual) Lymphocytes % (Manual) Monocytes % (Manual) Nucleated RBC % Seg Neutrophils # Seg Neutrophils # Man Monocytes # (Manual) Eosinophils # (Manual) Basophils # (Manual) PT INR APTT D-Dimer Heparin Anti-Xa Level ABG pH ABG pO2 ABG HCO3 ABG O2 Saturation ABG Base Excess ABG Hemoglobin Oxyhemoglobin Sodium 151 H Potassium Chloride 111.2 H Carbon Dioxide BUN 36 H Creatinine 1.3 H Glucose 136 H POC Glucose 124 H 118 H Hemoglobin A1c Lactic Acid Calcium 8.1 L Phosphorus Magnesium Ferritin AST ALT Alkaline Phosphatase Lactate Dehydrogenase Troponin T C-Reactive Protein Total Protein Albumin LDL Cholesterol Direct Urine Creatinine Urine Total Protein Salicylates Acetaminophen Crossmatch 11/15/21 11/15/21 11/16/21 11:18 21:49 00:15 WBC RBC Hgb Hct MCH RDW Plt Count Lymph % (Auto) Bertie % (Auto) Lymph # (Auto) Bertie # (Auto) Seg Neutrophils % Seg Neuts % (Manual) Lymphocytes % (Manual) Monocytes % (Manual) Nucleated RBC % Seg Neutrophils # Seg Neutrophils # Man Monocytes # (Manual) Eosinophils # (Manual) Basophils # (Manual) PT INR APTT D-Dimer Heparin Anti-Xa Level ABG pH ABG pO2 ABG HCO3 ABG O2 Saturation ABG Base Excess ABG Hemoglobin Oxyhemoglobin Sodium Potassium Chloride Carbon Dioxide BUN Creatinine Glucose POC Glucose 154 H 154 H 146 H Hemoglobin A1c Lactic Acid Calcium Phosphorus Magnesium Ferritin AST ALT Alkaline Phosphatase Lactate Dehydrogenase Troponin T C-Reactive Protein Total Protein Albumin LDL Cholesterol Direct Urine Creatinine Urine Total Protein Salicylates Acetaminophen Crossmatch 11/16/21 11/16/21 11/16/21 05:11 05:11 05:37 WBC 18.2 H RBC 2.92 L Hgb 8.3 L Hct 26.1 L MCH RDW 15.8 H Plt Count Lymph % (Auto) 6.3 L Bertie % (Auto) 10.2 H Lymph # (Auto) Bertie # (Auto) 1.9 H Seg Neutrophils % 81.7 H Seg Neuts % (Manual) Lymphocytes % (Manual) Monocytes % (Manual) Nucleated RBC % Seg Neutrophils # 14.9 H Seg Neutrophils # Man Monocytes # (Manual) Eosinophils # (Manual) Basophils # (Manual) PT INR APTT D-Dimer Heparin Anti-Xa Level ABG pH ABG pO2 ABG HCO3 ABG O2 Saturation ABG Base Excess ABG Hemoglobin Oxyhemoglobin Sodium 146 H Potassium Chloride 108.0 H Carbon Dioxide BUN 25 H Creatinine Glucose 123 H POC Glucose 109 H Hemoglobin A1c Lactic Acid Calcium 7.8 L Phosphorus Magnesium Ferritin AST ALT Alkaline Phosphatase Lactate Dehydrogenase Troponin T C-Reactive Protein Total Protein Albumin LDL Cholesterol Direct Urine Creatinine Urine Total Protein Salicylates Acetaminophen Crossmatch 11/16/21 11/16/21 11/17/21 11:22 23:55 04:33 WBC RBC Hgb Hct MCH RDW Plt Count Lymph % (Auto) Bertie % (Auto) Lymph # (Auto) Bertie # (Auto) Seg Neutrophils % Seg Neuts % (Manual) Lymphocytes % (Manual) Monocytes % (Manual) Nucleated RBC % Seg Neutrophils # Seg Neutrophils # Man Monocytes # (Manual) Eosinophils # (Manual) Basophils # (Manual) PT INR APTT D-Dimer Heparin Anti-Xa Level ABG pH ABG pO2 ABG HCO3 ABG O2 Saturation ABG Base Excess ABG Hemoglobin Oxyhemoglobin Sodium Potassium Chloride Carbon Dioxide BUN 20 H Creatinine Glucose POC Glucose 136 H 113 H Hemoglobin A1c Lactic Acid Calcium 7.5 L Phosphorus Magnesium Ferritin AST ALT Alkaline Phosphatase Lactate Dehydrogenase Troponin T C-Reactive Protein Total Protein Albumin LDL Cholesterol Direct Urine Creatinine Urine Total Protein Salicylates Acetaminophen Crossmatch 11/17/21 11/18/21 11/18/21 23:22 04:53 04:53 WBC 13.0 H RBC 2.99 L Hgb 8.5 L Hct 26.4 L MCH RDW Plt Count Lymph % (Auto) 9.5 L Bertie % (Auto) 9.8 H Lymph # (Auto) Bertie # (Auto) 1.3 H Seg Neutrophils % 78.3 H Seg Neuts % (Manual) Lymphocytes % (Manual) Monocytes % (Manual) Nucleated RBC % Seg Neutrophils # 10.2 H Seg Neutrophils # Man Monocytes # (Manual) Eosinophils # (Manual) Basophils # (Manual) PT INR APTT D-Dimer Heparin Anti-Xa Level ABG pH ABG pO2 ABG HCO3 ABG O2 Saturation ABG Base Excess ABG Hemoglobin Oxyhemoglobin Sodium Potassium Chloride Carbon Dioxide BUN 18 H Creatinine Glucose 106 H POC Glucose 112 H Hemoglobin A1c Lactic Acid Calcium 8.1 L Phosphorus Magnesium Ferritin AST ALT Alkaline Phosphatase Lactate Dehydrogenase Troponin T C-Reactive Protein Total Protein Albumin LDL Cholesterol Direct Urine Creatinine Urine Total Protein Salicylates Acetaminophen Crossmatch 11/18/21 11/18/21 11/19/21 11:35 17:42 14:38 WBC RBC Hgb Hct MCH RDW Plt Count Lymph % (Auto) Bertie % (Auto) Lymph # (Auto) Bertie # (Auto) Seg Neutrophils % Seg Neuts % (Manual) Lymphocytes % (Manual) Monocytes % (Manual) Nucleated RBC % Seg Neutrophils # Seg Neutrophils # Man Monocytes # (Manual) Eosinophils # (Manual) Basophils # (Manual) PT INR APTT D-Dimer Heparin Anti-Xa Level ABG pH ABG pO2 ABG HCO3 ABG O2 Saturation ABG Base Excess ABG Hemoglobin Oxyhemoglobin Sodium Potassium Chloride 97.5 L Carbon Dioxide 31 H BUN Creatinine Glucose 146 H POC Glucose 143 H 132 H Hemoglobin A1c Lactic Acid Calcium Phosphorus Magnesium 1.60 L Ferritin AST ALT Alkaline Phosphatase Lactate Dehydrogenase Troponin T C-Reactive Protein Total Protein Albumin LDL Cholesterol Direct Urine Creatinine Urine Total Protein Salicylates Acetaminophen Crossmatch 11/19/21 11/19/21 11/20/21 16:24 23:58 07:42 WBC RBC 3.01 L Hgb 8.6 L Hct 26.7 L MCH RDW 15.4 H Plt Count Lymph % (Auto) Bertie % (Auto) Lymph # (Auto) Bertie # (Auto) Seg Neutrophils % Seg Neuts % (Manual) Lymphocytes % (Manual) Monocytes % (Manual) Nucleated RBC % Seg Neutrophils # Seg Neutrophils # Man Monocytes # (Manual) Eosinophils # (Manual) Basophils # (Manual) PT INR APTT D-Dimer Heparin Anti-Xa Level ABG pH ABG pO2 ABG HCO3 ABG O2 Saturation ABG Base Excess ABG Hemoglobin Oxyhemoglobin Sodium Potassium Chloride Carbon Dioxide BUN Creatinine Glucose POC Glucose 129 H 125 H Hemoglobin A1c Lactic Acid Calcium Phosphorus Magnesium Ferritin AST ALT Alkaline Phosphatase Lactate Dehydrogenase Troponin T C-Reactive Protein Total Protein Albumin LDL Cholesterol Direct Urine Creatinine Urine Total Protein Salicylates Acetaminophen Crossmatch 11/20/21 11/20/21 11/20/21 07:42 11:25 22:59 WBC RBC Hgb Hct MCH RDW Plt Count Lymph % (Auto) Bertie % (Auto) Lymph # (Auto) Bertie # (Auto) Seg Neutrophils % Seg Neuts % (Manual) Lymphocytes % (Manual) Monocytes % (Manual) Nucleated RBC % Seg Neutrophils # Seg Neutrophils # Man Monocytes # (Manual) Eosinophils # (Manual) Basophils # (Manual) PT INR APTT D-Dimer Heparin Anti-Xa Level ABG pH ABG pO2 ABG HCO3 ABG O2 Saturation ABG Base Excess ABG Hemoglobin Oxyhemoglobin Sodium Potassium Chloride Carbon Dioxide 31 H BUN Creatinine Glucose POC Glucose 116 H 113 H Hemoglobin A1c Lactic Acid Calcium Phosphorus Magnesium Ferritin AST ALT Alkaline Phosphatase Lactate Dehydrogenase Troponin T C-Reactive Protein Total Protein Albumin LDL Cholesterol Direct Urine Creatinine Urine Total Protein Salicylates Acetaminophen Crossmatch 11/21/21 11/22/21 11/22/21 10:50 05:10 16:12 WBC RBC Hgb Hct MCH RDW Plt Count Lymph % (Auto) Bertie % (Auto) Lymph # (Auto) Bertie # (Auto) Seg Neutrophils % Seg Neuts % (Manual) Lymphocytes % (Manual) Monocytes % (Manual) Nucleated RBC % Seg Neutrophils # Seg Neutrophils # Man Monocytes # (Manual) Eosinophils # (Manual) Basophils # (Manual) PT INR APTT D-Dimer Heparin Anti-Xa Level ABG pH ABG pO2 ABG HCO3 ABG O2 Saturation ABG Base Excess ABG Hemoglobin Oxyhemoglobin Sodium Potassium Chloride Carbon Dioxide 32 H BUN Creatinine Glucose POC Glucose 156 H 110 H Hemoglobin A1c Lactic Acid Calcium 8.1 L Phosphorus Magnesium Ferritin AST ALT Alkaline Phosphatase Lactate Dehydrogenase Troponin T C-Reactive Protein Total Protein Albumin LDL Cholesterol Direct Urine Creatinine Urine Total Protein Salicylates Acetaminophen Crossmatch 11/23/21 11/23/21 11/23/21 07:18 07:18 11:45 WBC RBC 3.23 L Hgb 9.1 L Hct 28.5 L MCH RDW 15.6 H Plt Count Lymph % (Auto) Bertie % (Auto) Lymph # (Auto) Bertie # (Auto) Seg Neutrophils % Seg Neuts % (Manual) Lymphocytes % (Manual) Monocytes % (Manual) Nucleated RBC % Seg Neutrophils # Seg Neutrophils # Man Monocytes # (Manual) Eosinophils # (Manual) Basophils # (Manual) PT INR APTT D-Dimer Heparin Anti-Xa Level ABG pH ABG pO2 ABG HCO3 ABG O2 Saturation ABG Base Excess ABG Hemoglobin Oxyhemoglobin Sodium Potassium 3.3 L Chloride 96.8 L Carbon Dioxide 32 H BUN Creatinine Glucose POC Glucose 140 H Hemoglobin A1c Lactic Acid Calcium Phosphorus Magnesium Ferritin AST ALT Alkaline Phosphatase Lactate Dehydrogenase Troponin T C-Reactive Protein Total Protein Albumin LDL Cholesterol Direct Urine Creatinine Urine Total Protein Salicylates Acetaminophen Crossmatch 11/23/21 11/23/21 11/24/21 16:40 23:45 07:19 WBC RBC 3.12 L Hgb 9.3 L Hct 27.2 L MCH RDW 16.0 H Plt Count Lymph % (Auto) 10.3 L Bertie % (Auto) 10.0 H Lymph # (Auto) 1.1 L Bertie # (Auto) 1.1 H Seg Neutrophils % 75.2 H Seg Neuts % (Manual) Lymphocytes % (Manual) Monocytes % (Manual) Nucleated RBC % Seg Neutrophils # 7.9 H Seg Neutrophils # Man Monocytes # (Manual) Eosinophils # (Manual) Basophils # (Manual) PT INR APTT D-Dimer Heparin Anti-Xa Level ABG pH ABG pO2 ABG HCO3 ABG O2 Saturation ABG Base Excess ABG Hemoglobin Oxyhemoglobin Sodium Potassium Chloride Carbon Dioxide BUN Creatinine Glucose POC Glucose 140 H 138 H Hemoglobin A1c Lactic Acid Calcium Phosphorus Magnesium Ferritin AST ALT Alkaline Phosphatase Lactate Dehydrogenase Troponin T C-Reactive Protein Total Protein Albumin LDL Cholesterol Direct Urine Creatinine Urine Total Protein Salicylates Acetaminophen Crossmatch 11/24/21 11/24/21 11/24/21 07:19 11:49 15:54 WBC RBC Hgb Hct MCH RDW Plt Count Lymph % (Auto) Bertie % (Auto) Lymph # (Auto) Bertie # (Auto) Seg Neutrophils % Seg Neuts % (Manual) Lymphocytes % (Manual) Monocytes % (Manual) Nucleated RBC % Seg Neutrophils # Seg Neutrophils # Man Monocytes # (Manual) Eosinophils # (Manual) Basophils # (Manual) PT INR APTT D-Dimer Heparin Anti-Xa Level ABG pH ABG pO2 ABG HCO3 ABG O2 Saturation ABG Base Excess ABG Hemoglobin Oxyhemoglobin Sodium Potassium 3.2 L Chloride 96.7 L Carbon Dioxide BUN Creatinine Glucose 125 H POC Glucose 118 H 106 H Hemoglobin A1c Lactic Acid Calcium Phosphorus Magnesium Ferritin AST ALT Alkaline Phosphatase Lactate Dehydrogenase Troponin T C-Reactive Protein Total Protein Albumin LDL Cholesterol Direct Urine Creatinine Urine Total Protein Salicylates Acetaminophen Crossmatch 11/25/21 11/25/21 11/25/21 11:49 15:41 20:51 WBC RBC Hgb Hct MCH RDW Plt Count Lymph % (Auto) Bertie % (Auto) Lymph # (Auto) Bertie # (Auto) Seg Neutrophils % Seg Neuts % (Manual) Lymphocytes % (Manual) Monocytes % (Manual) Nucleated RBC % Seg Neutrophils # Seg Neutrophils # Man Monocytes # (Manual) Eosinophils # (Manual) Basophils # (Manual) PT INR APTT D-Dimer Heparin Anti-Xa Level ABG pH ABG pO2 ABG HCO3 ABG O2 Saturation ABG Base Excess ABG Hemoglobin Oxyhemoglobin Sodium Potassium Chloride Carbon Dioxide BUN Creatinine Glucose POC Glucose 119 H 110 H 109 H Hemoglobin A1c Lactic Acid Calcium Phosphorus Magnesium Ferritin AST ALT Alkaline Phosphatase Lactate Dehydrogenase Troponin T C-Reactive Protein Total Protein Albumin LDL Cholesterol Direct Urine Creatinine Urine Total Protein Salicylates Acetaminophen Crossmatch 11/26/21 11/26/21 11/26/21 07:33 11:20 17:03 WBC RBC Hgb Hct MCH RDW Plt Count Lymph % (Auto) Bertie % (Auto) Lymph # (Auto) Bertie # (Auto) Seg Neutrophils % Seg Neuts % (Manual) Lymphocytes % (Manual) Monocytes % (Manual) Nucleated RBC % Seg Neutrophils # Seg Neutrophils # Man Monocytes # (Manual) Eosinophils # (Manual) Basophils # (Manual) PT INR APTT D-Dimer Heparin Anti-Xa Level ABG pH ABG pO2 ABG HCO3 ABG O2 Saturation ABG Base Excess ABG Hemoglobin Oxyhemoglobin Sodium Potassium Chloride Carbon Dioxide BUN Creatinine Glucose POC Glucose 158 H 162 H 144 H Hemoglobin A1c Lactic Acid Calcium Phosphorus Magnesium Ferritin AST ALT Alkaline Phosphatase Lactate Dehydrogenase Troponin T C-Reactive Protein Total Protein Albumin LDL Cholesterol Direct Urine Creatinine Urine Total Protein Salicylates Acetaminophen Crossmatch 11/26/21 11/27/21 11/27/21 21:51 07:44 12:20 WBC RBC Hgb Hct MCH RDW Plt Count Lymph % (Auto) Bertie % (Auto) Lymph # (Auto) Bertie # (Auto) Seg Neutrophils % Seg Neuts % (Manual) Lymphocytes % (Manual) Monocytes % (Manual) Nucleated RBC % Seg Neutrophils # Seg Neutrophils # Man Monocytes # (Manual) Eosinophils # (Manual) Basophils # (Manual) PT INR APTT D-Dimer Heparin Anti-Xa Level ABG pH ABG pO2 ABG HCO3 ABG O2 Saturation ABG Base Excess ABG Hemoglobin Oxyhemoglobin Sodium Potassium Chloride Carbon Dioxide BUN Creatinine Glucose POC Glucose 132 H 129 H 128 H Hemoglobin A1c Lactic Acid Calcium Phosphorus Magnesium Ferritin AST ALT Alkaline Phosphatase Lactate Dehydrogenase Troponin T C-Reactive Protein Total Protein Albumin LDL Cholesterol Direct Urine Creatinine Urine Total Protein Salicylates Acetaminophen Crossmatch 11/27/21 11/27/21 11/28/21 16:44 21:35 07:54 WBC RBC Hgb Hct MCH RDW Plt Count Lymph % (Auto) Bertie % (Auto) Lymph # (Auto) Bertie # (Auto) Seg Neutrophils % Seg Neuts % (Manual) Lymphocytes % (Manual) Monocytes % (Manual) Nucleated RBC % Seg Neutrophils # Seg Neutrophils # Man Monocytes # (Manual) Eosinophils # (Manual) Basophils # (Manual) PT INR APTT D-Dimer Heparin Anti-Xa Level ABG pH ABG pO2 ABG HCO3 ABG O2 Saturation ABG Base Excess ABG Hemoglobin Oxyhemoglobin Sodium Potassium Chloride Carbon Dioxide BUN Creatinine Glucose POC Glucose 126 H 131 H 124 H Hemoglobin A1c Lactic Acid Calcium Phosphorus Magnesium Ferritin AST ALT Alkaline Phosphatase Lactate Dehydrogenase Troponin T C-Reactive Protein Total Protein Albumin LDL Cholesterol Direct Urine Creatinine Urine Total Protein Salicylates Acetaminophen Crossmatch 11/28/21 11/28/21 11/28/21 11:27 11:56 16:34 WBC 12.3 H RBC 3.18 L Hgb 9.2 L Hct 27.8 L MCH RDW 16.1 H Plt Count Lymph % (Auto) 10.9 L Bertie % (Auto) 13.7 H Lymph # (Auto) Bertie # (Auto) 1.7 H Seg Neutrophils % 72.2 H Seg Neuts % (Manual) Lymphocytes % (Manual) Monocytes % (Manual) Nucleated RBC % Seg Neutrophils # 8.9 H Seg Neutrophils # Man Monocytes # (Manual) Eosinophils # (Manual) Basophils # (Manual) PT INR APTT D-Dimer Heparin Anti-Xa Level ABG pH ABG pO2 ABG HCO3 ABG O2 Saturation ABG Base Excess ABG Hemoglobin Oxyhemoglobin Sodium Potassium Chloride Carbon Dioxide BUN Creatinine Glucose POC Glucose 131 H 123 H Hemoglobin A1c Lactic Acid Calcium Phosphorus Magnesium Ferritin AST ALT Alkaline Phosphatase Lactate Dehydrogenase Troponin T C-Reactive Protein Total Protein Albumin LDL Cholesterol Direct Urine Creatinine Urine Total Protein Salicylates Acetaminophen Crossmatch 11/28/21 11/28/21 11/29/21 19:35 21:32 07:33 WBC RBC Hgb Hct MCH RDW Plt Count Lymph % (Auto) Bertie % (Auto) Lymph # (Auto) Bertie # (Auto) Seg Neutrophils % Seg Neuts % (Manual) Lymphocytes % (Manual) Monocytes % (Manual) Nucleated RBC % Seg Neutrophils # Seg Neutrophils # Man Monocytes # (Manual) Eosinophils # (Manual) Basophils # (Manual) PT INR APTT D-Dimer Heparin Anti-Xa Level 0.12 L ABG pH ABG pO2 ABG HCO3 ABG O2 Saturation ABG Base Excess ABG Hemoglobin Oxyhemoglobin Sodium Potassium Chloride Carbon Dioxide BUN Creatinine Glucose POC Glucose 110 H 108 H Hemoglobin A1c Lactic Acid Calcium Phosphorus Magnesium Ferritin AST ALT Alkaline Phosphatase Lactate Dehydrogenase Troponin T C-Reactive Protein Total Protein Albumin LDL Cholesterol Direct Urine Creatinine Urine Total Protein Salicylates Acetaminophen Crossmatch 11/29/21 11/29/21 11/29/21 11:29 13:51 15:25 WBC 13.0 H RBC 3.41 L Hgb 9.5 L Hct 29.9 L MCH RDW 16.2 H Plt Count Lymph % (Auto) 11.1 L Bertie % (Auto) 15.5 H Lymph # (Auto) Bertie # (Auto) 2.0 H Seg Neutrophils % 71.8 H Seg Neuts % (Manual) Lymphocytes % (Manual) Monocytes % (Manual) Nucleated RBC % Seg Neutrophils # 9.3 H Seg Neutrophils # Man Monocytes # (Manual) Eosinophils # (Manual) Basophils # (Manual) PT INR APTT D-Dimer Heparin Anti-Xa Level ABG pH ABG pO2 ABG HCO3 ABG O2 Saturation ABG Base Excess ABG Hemoglobin Oxyhemoglobin Sodium Potassium Chloride Carbon Dioxide BUN Creatinine Glucose POC Glucose 136 H 123 H Hemoglobin A1c Lactic Acid Calcium Phosphorus Magnesium Ferritin AST ALT Alkaline Phosphatase Lactate Dehydrogenase Troponin T C-Reactive Protein Total Protein Albumin LDL Cholesterol Direct Urine Creatinine Urine Total Protein Salicylates Acetaminophen Crossmatch 11/29/21 11/29/21 11/29/21 18:50 18:50 20:16 WBC RBC Hgb Hct MCH RDW Plt Count Lymph % (Auto) Bertie % (Auto) Lymph # (Auto) Bertie # (Auto) Seg Neutrophils % Seg Neuts % (Manual) Lymphocytes % (Manual) Monocytes % (Manual) Nucleated RBC % Seg Neutrophils # Seg Neutrophils # Man Monocytes # (Manual) Eosinophils # (Manual) Basophils # (Manual) PT INR APTT D-Dimer Heparin Anti-Xa Level 0.21 L ABG pH ABG pO2 ABG HCO3 ABG O2 Saturation ABG Base Excess ABG Hemoglobin Oxyhemoglobin Sodium 126 L Potassium Chloride 86.3 L Carbon Dioxide BUN 38 H Creatinine 3.6 H Glucose 153 H POC Glucose 166 H Hemoglobin A1c Lactic Acid Calcium Phosphorus Magnesium Ferritin AST ALT Alkaline Phosphatase Lactate Dehydrogenase Troponin T C-Reactive Protein Total Protein Albumin LDL Cholesterol Direct Urine Creatinine Urine Total Protein Salicylates Acetaminophen Crossmatch 11/30/21 11/30/21 11/30/21 05:14 07:35 11:15 WBC RBC Hgb 8.7 L Hct 26.8 L MCH RDW Plt Count Lymph % (Auto) Bertie % (Auto) Lymph # (Auto) Bertie # (Auto) Seg Neutrophils % Seg Neuts % (Manual) Lymphocytes % (Manual) Monocytes % (Manual) Nucleated RBC % Seg Neutrophils # Seg Neutrophils # Man Monocytes # (Manual) Eosinophils # (Manual) Basophils # (Manual) PT INR APTT D-Dimer Heparin Anti-Xa Level ABG pH ABG pO2 ABG HCO3 ABG O2 Saturation ABG Base Excess ABG Hemoglobin Oxyhemoglobin Sodium Potassium Chloride Carbon Dioxide BUN Creatinine Glucose POC Glucose 114 H 119 H Hemoglobin A1c Lactic Acid Calcium Phosphorus Magnesium Ferritin AST ALT Alkaline Phosphatase Lactate Dehydrogenase Troponin T C-Reactive Protein Total Protein Albumin LDL Cholesterol Direct Urine Creatinine Urine Total Protein Salicylates Acetaminophen Crossmatch 11/30/21 11/30/21 11/30/21 15:26 17:10 18:51 WBC RBC Hgb Hct MCH RDW Plt Count Lymph % (Auto) Bertie % (Auto) Lymph # (Auto) Bertie # (Auto) Seg Neutrophils % Seg Neuts % (Manual) Lymphocytes % (Manual) Monocytes % (Manual) Nucleated RBC % Seg Neutrophils # Seg Neutrophils # Man Monocytes # (Manual) Eosinophils # (Manual) Basophils # (Manual) PT INR APTT D-Dimer Heparin Anti-Xa Level 0.10 L ABG pH ABG pO2 ABG HCO3 ABG O2 Saturation ABG Base Excess ABG Hemoglobin Oxyhemoglobin Sodium 126 L Potassium Chloride 86.5 L Carbon Dioxide BUN 42 H Creatinine 4.0 H Glucose 155 H POC Glucose 157 H Hemoglobin A1c Lactic Acid Calcium 8.0 L Phosphorus Magnesium Ferritin AST ALT Alkaline Phosphatase Lactate Dehydrogenase Troponin T C-Reactive Protein Total Protein Albumin LDL Cholesterol Direct Urine Creatinine Urine Total Protein Salicylates Acetaminophen Crossmatch 11/30/21 12/01/21 12/01/21 20:04 00:39 09:38 WBC 25.2 H RBC 3.06 L Hgb 8.5 L Hct 26.8 L MCH RDW 16.1 H Plt Count Lymph % (Auto) Bertie % (Auto) Lymph # (Auto) Bertie # (Auto) Seg Neutrophils % Seg Neuts % (Manual) 80.0 H Lymphocytes % (Manual) 9.0 L Monocytes % (Manual) Nucleated RBC % Seg Neutrophils # Seg Neutrophils # Man 20.2 H Monocytes # (Manual) 1.3 H Eosinophils # (Manual) Basophils # (Manual) PT INR APTT D-Dimer Heparin Anti-Xa Level 0.18 L ABG pH ABG pO2 ABG HCO3 ABG O2 Saturation ABG Base Excess ABG Hemoglobin Oxyhemoglobin Sodium Potassium Chloride Carbon Dioxide BUN Creatinine Glucose POC Glucose 115 H Hemoglobin A1c Lactic Acid Calcium Phosphorus Magnesium Ferritin AST ALT Alkaline Phosphatase Lactate Dehydrogenase Troponin T C-Reactive Protein Total Protein Albumin LDL Cholesterol Direct Urine Creatinine Urine Total Protein Salicylates Acetaminophen Crossmatch 12/01/21 12/01/21 12/02/21 09:38 11:35 03:22 WBC 23.3 H RBC 2.61 L Hgb 7.5 L Hct 22.8 L MCH RDW 16.1 H Plt Count Lymph % (Auto) Bertie % (Auto) Lymph # (Auto) Bertie # (Auto) Seg Neutrophils % Seg Neuts % (Manual) 77.0 H Lymphocytes % (Manual) 7.0 L Monocytes % (Manual) 14.0 H Nucleated RBC % Seg Neutrophils # Seg Neutrophils # Man 17.9 H Monocytes # (Manual) 3.3 H Eosinophils # (Manual) Basophils # (Manual) 0.2 H PT INR APTT D-Dimer Heparin Anti-Xa Level ABG pH ABG pO2 ABG HCO3 ABG O2 Saturation ABG Base Excess ABG Hemoglobin Oxyhemoglobin Sodium 127 L Potassium 5.1 H Chloride 87.9 L Carbon Dioxide BUN 49 H Creatinine 4.9 H Glucose 134 H POC Glucose 109 H Hemoglobin A1c Lactic Acid Calcium 7.9 L Phosphorus Magnesium Ferritin AST ALT Alkaline Phosphatase Lactate Dehydrogenase Troponin T C-Reactive Protein Total Protein Albumin LDL Cholesterol Direct Urine Creatinine Urine Total Protein Salicylates Acetaminophen Crossmatch 12/02/21 12/02/21 12/02/21 03:22 03:22 15:40 WBC RBC Hgb Hct MCH RDW Plt Count Lymph % (Auto) Bertie % (Auto) Lymph # (Auto) Bertie # (Auto) Seg Neutrophils % Seg Neuts % (Manual) Lymphocytes % (Manual) Monocytes % (Manual) Nucleated RBC % Seg Neutrophils # Seg Neutrophils # Man Monocytes # (Manual) Eosinophils # (Manual) Basophils # (Manual) PT INR APTT D-Dimer Heparin Anti-Xa Level 0.15 L < 0.10 L ABG pH ABG pO2 ABG HCO3 ABG O2 Saturation ABG Base Excess ABG Hemoglobin Oxyhemoglobin Sodium 129 L Potassium Chloride 91.7 L Carbon Dioxide BUN 42 H Creatinine 4.4 H Glucose POC Glucose Hemoglobin A1c Lactic Acid Calcium 8.0 L Phosphorus 5.20 H Magnesium Ferritin AST ALT Alkaline Phosphatase Lactate Dehydrogenase Troponin T C-Reactive Protein Total Protein Albumin LDL Cholesterol Direct Urine Creatinine Urine Total Protein Salicylates Acetaminophen Crossmatch 12/02/21 12/02/21 12/03/21 17:45 21:03 05:24 WBC 22.3 H RBC 2.69 L Hgb 7.4 L Hct 23.5 L MCH RDW 16.5 H Plt Count Lymph % (Auto) Bertie % (Auto) Lymph # (Auto) Bertie # (Auto) Seg Neutrophils % Seg Neuts % (Manual) 85.5 H Lymphocytes % (Manual) 6.0 L Monocytes % (Manual) Nucleated RBC % Seg Neutrophils # Seg Neutrophils # Man 19.1 H Monocytes # (Manual) 1.0 H Eosinophils # (Manual) 0.7 H Basophils # (Manual) PT INR APTT D-Dimer Heparin Anti-Xa Level ABG pH ABG pO2 ABG HCO3 ABG O2 Saturation ABG Base Excess ABG Hemoglobin Oxyhemoglobin Sodium Potassium Chloride Carbon Dioxide BUN Creatinine Glucose POC Glucose 122 H 121 H Hemoglobin A1c Lactic Acid Calcium Phosphorus Magnesium Ferritin AST ALT Alkaline Phosphatase Lactate Dehydrogenase Troponin T C-Reactive Protein Total Protein Albumin LDL Cholesterol Direct Urine Creatinine Urine Total Protein Salicylates Acetaminophen Crossmatch 12/03/21 12/03/21 08:00 11:19 WBC RBC Hgb Hct MCH RDW Plt Count Lymph % (Auto) Bertie % (Auto) Lymph # (Auto) Bertie # (Auto) Seg Neutrophils % Seg Neuts % (Manual) Lymphocytes % (Manual) Monocytes % (Manual) Nucleated RBC % Seg Neutrophils # Seg Neutrophils # Man Monocytes # (Manual) Eosinophils # (Manual) Basophils # (Manual) PT INR APTT D-Dimer Heparin Anti-Xa Level ABG pH ABG pO2 ABG HCO3 ABG O2 Saturation ABG Base Excess ABG Hemoglobin Oxyhemoglobin Sodium 134 L Potassium Chloride 95.9 L Carbon Dioxide BUN 30 H Creatinine 3.5 H Glucose 110 H POC Glucose 108 H Hemoglobin A1c Lactic Acid Calcium Phosphorus Magnesium Ferritin AST ALT Alkaline Phosphatase Lactate Dehydrogenase Troponin T C-Reactive Protein Total Protein Albumin LDL Cholesterol Direct Urine Creatinine Urine Total Protein Salicylates Acetaminophen Crossmatch Allied health notes reviewed: nursing
--- NOTE | 2021-12-03 15:09 | Progress Note ---
Assessment and Plan Assessment and plan: This is a 66-year-old female with past medical history of HTN and Obesity admitted for septic shock, s/p cardiac arrest with ROSC in the field now intubated and on ventilatory support s/p cardiac arrest, collapse at [facility], HFrEF, shock/hypotension resolved, Atrial fibrillation/atrial flutter -Cardiac arrest and collapse at [facility] with ROSC - S/p Cardizem gtt- d/c due to low EF; now on PO Amio -s/p vasopressor support with levophed -Echocardiogram LVEF 25 to 30%, no pericardial effusion -LifeVest in place Hypotension/shock: Possible septic shock; -midodrine po -Blood pressure monitoring per protocol Spontaneous left retroperitoneal hemorrhage requiring cessation of anticoagulation. -Ultimately IVC filter was placed, but patient's DVTs continue to propagate. -There are now extensive bilateral lower extremity DVTs. -Heparin drip Fever/lung infiltrate/leukocytosis/sepsis -Possible healthcare associated pneumonia -Continue cefepime, consult ID Sepsis /Gram-positive bacteremia; -IV Vanco 1 dose, repeat cultures -Consult ID Acute kidney injury/worsening renal function likely secondary to ATN -Nephrology initiated hemodialysis, vascular consulted for Vas-Cath placement -HD per nephrology -Avoid nephrotoxic medications -Renally dose medications Severe anemia -S/p 4 units PRBC -Monitor CBC -Transfuse for hemoglobin less than 7 -Anticoagulation with heparin drip -S/p IVC filter Anemia, due to retroperitoneal bleed -D-dimer greater than 10,000 -CTA chest with no evidence of PE -Bilateral lower extremity ultrasound positive for DVT s/p IVC filter -Vascular surgery consulted, appreciate recommendations -Worsening DVT -Heparin drip Acute DVT bilateral lower extremities -Worsening DVT, Status post IVC filter placement 11/22 -On heparin drip, vascular IR following -Repeat venous duplex ultrasound on 11/21 showed progression of left peroneal DVT extending into popliteal vein. Acute hypoxic respiratory failure, right pneumothorax, Angioedema (resolved), pulmonary edema -Intubated on 10/29 and extubated on 11/11 -Pulmonary critical evaluated the patient, managed in ICU later transferred to telemetry -Bipap q HS and prn, at high risk for KOLBY with morbid obesity -s/p right chest tube for pneumothorax -s/p steroids for angioedema -On Lasix for pulmonary edema. Transaminitis likely shocked liver - resolved Shock cardiogenicsuspected sepsis -Fever was as high as 102 with a leukocytosis Blood, urine and sputum cultures negative -COVID-19 PCR negative -S/p empiric antibiotic therapy for possible pneumonia with Rocephin and azithromycin () -S/p Levophed gtt for hypotension -Fever and leukocytosis resolved -Monitor WBC and temperature curve Acute Metabolic encephalopathy, agitation/anxiety -Etiology likely from a cardiac arrest, shock and cerebral hypoperfusion CT head no acute focal parenchymal lesion in the brain -Neurology consulted, appreciate recommendations -EEG and MRI noted, Neuro recommend to cut down on sedation as possible Mental status significantly improved, currently fairly alert and oriented. Answers appropriately. Hypertension -All antihypertensives currently on hold Hyperglycemia ,resolved) -Avoid hypoglycemia -Hbg A1C 6.7 -SSI and lantus q hs (titrate as needed) -Accu-Cheks q. 6 Morbid obesity High risk for KOLBY On nightly BiPAP Deconditioning PT/OT The high probability of a clinically significant, sudden or life threatening deterioration of the [] system(s) required my full and direct attention, intervention and personal management. The aggregate critical care time was [60] minutes. This time is in addition to time spent performing reported procedures but includes the following: [x] Data Review and interpretation [x] Patient assessment and monitoring of vital signs [x] Documentation [x] Medication orders and management Disposition Plan: transfer to floor Total Time Spent with Patient (Minutes): 60 History Interval history: This is a 66-year-old female with HTN and obesity who presented to the hospital on 10/29 via EMS with s/p cardiac arrest with CPR initiated by bystanders and upon EMS arrival a David airway was placed and ACLS was initiated. Patient had ROSC after 5-7 minutes and was started on epinephrine in route for hemodynamic support. Upon arrival to the emergency department patient GCS was noted to be 3 and she was biting the endotracheal tube with dilated pupils and copious vomitus and gastric secretions in the oropharynx/mouth/neck. David airway was removed and patient was intubated in the emergency department. Patient was admitted to the hospitalist service s/p cardiac arrest on sepsis and pneumonia protocol with consults to [facility]. Cardiology was consulted upon arrival to ICU. Hospital Course to Date: 10/30: Intubated and sedated, on fentanyl gtt. Open eyes spontaneously but does not follow any commands. On vasopressors, titrate as tolerated for MAP above 65. Patient febrile overnight, continue empiric IV Abx, culture data and COVID PCR pending. Patient is also s/p CT placement due to spontaneous pneumothorax. 2D echo is pending and Cardiology is consulted. 10/31: Patient remains intubated and following commands. Levophed drip stopped and potassium repleted. Patient started on tube feeding. Remains in soft bilateral restraints. 11/01: RN noted ST changes on BSM and 12 lead EKG obtained which showed ST. Given Ativan 1mg for agitation as she is maxed on fentanyl drip and IV push fentanyl did not seem to help. Patient was started on CPAP this morning by RT but remained on fentanyl drip and was having periods of apnea. Plan was to retry CPAP again in the p.m. with sedation off. 11/02: Rate increased r/t hypercapnea on ABG, sedation reduced. Given kionex for hyperkalemia and was started on levophed overnight for hypotension. 11/03: Overnight patient had tachycardia and was given Cardizem and Lopressor. Lopressor was repeated in the a.m. due to tachycardia. Patient will be started on amiodarone with a bolus per cardiology. Patient started on normal saline per liter per [facility] and steroids for angioedema. Noted to have bright red blood when suctioned from oh ETT. Remains on heparin drip as H/H is stable for now. Will reevaluate. Fentanyl drip was restarted last night due to agitation. Dr. Flores updated family today 11/04: Patient was sedated on fentanyl however off sedation is able to follow commands, a.m. labs completed in the p.m. and show hyperkalemia with increased renal function studies. Nephrology, neurology consulted by [facility]. Given Kayexalate, insulin and D50 for hyperkalemia. Patient remains on amiodarone. 11/05: Patient needed to be sedated on fentanyl again to today. overnight krishna was replaced. Hyperkalemia->given kionex 60 for 5.6. Repeat K 6-> Dr. Grant informed and requested bumex, kionex, insulin, d50, calcium gluconate and sodium bicarb with repeat BMP in 2 hours which were placed. HR remains elevated. 11/06: Patient remained in atrial fibrillation/atrial flutter with heart rate in the 150s despite being on amnio drip and was given amnio bolus, Cardizem bolus and started on Cardizem drip by cardiology. Patient is on beta-blockers p.o. scheduled and to feedings changed to Nepro. Kayexalate was given in the morning by nephrology due to hyperkalemia. 11/07: Patient is only responsive to mild stimuli, precedex added in an attempt to wean off fentanyl gtt to better assess her mental status. Neurology also on consult, pending MRI and EEG. Patient remains in Aflutter this am, HR in the 80 to 90s, still on amiodarone and heparin gtt. 11/08: Fentanyl gtt is off, only on precedex gtt. Patient is still not following any commands. MRI brain and EEG completed. Neuro recommendations noted, sedati ves agents decreased. FWF added for hypernatremia and low K repleted, repeat labs ordered. Placed a call and spoke with patient's daughter, Eva Brown . She was updated on patient's conditions and status. All questions and concerns were voiced at this time. 11/09: Patient is awake and alert this am, following commands and appropriate. Remains on precedex gtt, plan for possible PST today. Hypertensive overnight, meds adjusted by Cardio and PRN Hydralazine added for SBP greater than 160. CT dislodged overnight, CXR is stable with no significant change. F/U CXR in the am. Patient's daughter, Eva Brown, visited with patient. She was updated on patient's status and goal of care for today. All questions and concerns were voiced at this time. 11/10: Mentation remains intact, still on precedex gtt. This am CXR noted still with fluid overload s/p X1 dose of IV lasix, good response from IV lasix overnight. Hypernatremia improved, D5W d/dayday. Still with persistent hypokalemia, continue electrolytes replacement and frequent lab check. Daily IV lasix and aldactone added by Cardio. Patient is also with persistent low grade fevers overnight, leukocytosis with mild improvement this am. Will get a repeat sputum culture, hold off on IV abx for now. Consider ID consult if fevers and leukocytosis persist. Patient tolerated PST X4hrs yesterday. PST again today, plan to wean to extubate if tolerated. 11/11: IAM overnight. Off precedex gtt and tolerated PST this am. Plan to wean to extubate today. Additional IV lasix given, plan to keep patient at a net negative balance for better lung compliance. F/U CXR in the am. K improved this am, repeat BMP this afternoon since diuresing. Remains with low grade fevers, leukocytosis downtrending, will continue to monitor. Speech/PT/OT ordered 11/12: S/p extubation, now stable on 3L NC. This am CXR noted with no significant changes, lasix changed to IV X4days BID. Drop in H&H this am, and Lt. flank ecchymosis noted. Heparin gtt on hold for now and orders placed for 1 unit of PRBCs and Ct Abd/Pelvis w/o con to r/o retroperitoneal bleed. Pending speech swallow eval, keep patient NPO for now. Patient is stable for IMCU status 11/13: Patient with increased WOB and tachycardia this am, patient was placed on Bipap and precedex gtt was resumed. CXR with mild improvement. CT Abd/Pelvis also reviewed large hematomas noted at the Lt. retroperitoneum and left posterior lateral abdominal wall. Heparin gtt is already on hold, patient is hemodynamically stable. Vascular Surgery consulted for possible IVC filter eval. Patient s/p 2units of PRBCs, will continue to trend H&H and transfuse if hbg is less than 7. Worsening renal function this am, IF diuretic on hold for now. Patient is also febrile with spike in wbcs most likely reactive to bleed, will panculture and hold off on IV Abx for now. Patient also failed speech bedside swallow eval yesterday, NGT in placed plan to resume enteral nutrition 11/14: Patient had bilateral lower extremity Doppler ultrasound and vascular surgery has recommended multiphasic CT angio of the abdomen and pelvis with and without contrast if H/H drops and does not recommend IVC filter at this time as the DVTs are infrapopliteal and recommends a DVT study weekly for 2 weeks. FWF 250 q4 ml per nephro. Started on as needed Xanax and p.o. amiodarone. She did not pass her ST evaluation today. Will be transferred to IMCU. 11/15: Resting comfortably on encounter. Speech cleared for pureed diet. Remains on 3l satting 98 % on bedside encounter. Does not appear to be in respiratory distress. Will continue to hold AC, No ivc filter planned at this time. qweekly doppler to monitor for migration of DVT per vascular. If demonstrated, will consider IVC filter. CBC ordered for tomorrow, will continue monitoring in light of retroperitoneal hematoma. FWF increased by nephrology to 350cc q4hr d/t h ypernatremia. UOP/renal function both improved. D/w cardiology, will continue amiodorone an additional 24hrs. Plan to change dosing of metoprolol. Continue to wean off of precedex. Continue xanax scheduled for anxiety. physical therapy recs noted, fernanda / ltac will discuss with CM. Continue IMCU monitoring. 11/16: Pulmonary congestion this AM. CXR ordered. Lasix 40 mg IV x 1 order this AM. Will monitor for 24 hrs. potential downgrade to medical floor tomorrow. 11/17: Persisting pulmonary congestion, was on bipap overnight into this AM. Will order additional lasix 40 mg IV x 2. CXR ordered for AM. Possible downgrade to floor tomorrow. Anticipate d/c sunday. 11/18: Patient seen and examined, continue weaning, will continue diuresis BID, discussed with daughter. 11/19: Patient seen and examined this morning doing well no acute distress noted. Lasix was increased to twice daily to 20 mg IV. Clinically improving. Patient will be transferred to telemetry today can be switched to Lasix p.o. twice daily in a.m. She has her weekly Doppler of lower extremity tomorrow vascular is following for this. She was taken off anticoagulation secondary to retroperitoneal bleed., The anticoagulation was started initially for atrial fibrillation and an infrapopliteal DVT. During her hospital stay she had a prolonged ventilator management and was successfully weaned off. She also received a total of 4 units of packed red blood cell. Hemoglobin has remained stable. Anticipate discharge in next 48 hours if continues to clinically stay stable. : Transferred from ICU on 11/19. Progressive improving. Currently awake and oriented. O2 weaned to 4 L. Hemodynamically stable. BP control being optimized. MiraLAX for constipation. Hemoglobin stable on the heparin infusion, being monitored closely with history of retroperitoneal bleed. 11/21: Patient remains mostly bedridden. She is awake and oriented on 2 L of O2. Repeat ultrasound showed extension of left peroneal DVT into popliteal vein. Heparin was discontinued for significant retroperitoneal bleed and off anticoagulation since. Vascular surgery plan for placement of IVC filter tomorrow. Patient is chest pains, palpitations, hemoptysis. She has some cough. Left lower extremity pain likely from DVT better today. Discussed with the patient, nursing staff and vascular surgery. 11/22: The infrapopliteal vein thrombosis has propagated to the left popliteal vein. Vascular surgery to perform IVC filter placement today. 11/23: Vascular surgery placed IVC filter yesterday. Continue metoprolol 100 mg p.o. twice daily, Aldactone 25 mg p.o. daily and losartan 25 mg p.o. daily. Patient still requiring BiPAP (IPAP18, EPAP8) with FiO2 of 30%. Continue to wean oxygen per pulmonary recommendations. Nurse reports patient is having vaginal bleeding. We will check serial CBC and pelvic ultrasound 11/24: I discussed with cardiology yesterday the need for a LifeVest. LifeVest is ordered and pending. Patient is s/p IVC filter placement. Continue metoprolol 100 mg p.o. twice daily, Aldactone 25 mg p.o. daily and losartan 25 mg p.o. daily. Patient still requiring BiPAP (IPAP18, EPAP8) with FiO2 of 30%. Continue to wean oxygen per pulmonary recommendations. No further reports of vaginal bleeding. Pelvic ultrasound negative 11/25: Awaiting for LifeVest. Patient is s/p IVC filter placement. Continue metoprolol 100 mg p.o. twice daily, Aldactone 25 mg p.o. daily and losartan 25 mg p.o. daily. Patient still requiring BiPAP (IPAP18, EPAP8) with FiO2 of 30%. Continue to wean oxygen per pulmonary recommendations. 11/26: Physical therapy recommends subacute rehab. Still awaiting LifeVest. Patient is s/p IVC filter placement. Continue metoprolol 100 mg p.o. twice daily, Aldactone 25 mg p.o. daily and losartan 25 mg p.o. daily. Patient still requiring BiPAP (IPAP18, EPAP8) with FiO2 of 30% at night. Continue to wean oxygen per pulmonary recommendations. Patient currently with 2 L O2. 11/27: Physical therapy recommends subacute rehab. Patient has a LifeVest. Patient's left lower extremity pain likely related to DVT. Continue pain control. Continue metoprolol 100 mg p.o. twice daily, Aldactone 25 mg p.o. daily and losartan 25 mg p.o. daily. Patient still requiring BiPAP (IPAP18, EPAP8) with FiO2 of 30% at night. 11/28: Physical therapy recommends subacute rehab. Patient has a LifeVest. Patient continues to complain of left lower extremity pain which makes it very difficult for ambulation. Continue Percocet for pain control. Add neurontin for possible neuropathy. Etiology is likely secondary to DVT. Continue metoprolol 100 mg p.o. twice daily, Aldactone 25 mg p.o. daily and losartan 25 mg p.o. daily. Patient still requiring BiPAP (IPAP18, EPAP8) with FiO2 of 30% at night. Repeated Doppler US of LLE and will ask vascular surgery to revisit. 11/29; worsening lower extremity DVTs, vascular following, on heparin drip 11/30; low-grade fever, leukocytosis, shortness of breath, chest x-ray possible left-sided pneumonia/possible healthcare associated pneumonia Blood cultures already sent, empiric antibiotic cefepime[renal dose confirmed with pharmacist] ID consult if needed 12/01; gram-positive bacteremia preliminary, add vancomycin 1 dose, repeat cultures, consult ID Worsening renal function, nephrology initiated hemodialysis today, patient is critically ill, very poor prognosis, with multiple comorbidities And critical issues. Pyrometer Temperature Regulator recommendations noted and appreciated 12/02; Gram positive bacteremia/possible HCAP and sepsis, on cefepime and 1 dose Vanco. Nephrology initiated hemodialysis, ID consult. Patient is hypotensive, pulmonary critical recommended transfer to ICU and start vasopressors for close observation overnight. Dr. Padron discussed with patient's daughter over patient's telephone and discussed in detail patient's condition, new developments sepsis, renal failure on hemodialysis anticoagulation for DVT and severe cardiomyopathy, also discussed poor prognosis, and the plans of transferring the patient to ICU for close observation. Many questions, and answered all of them. dr. Padron also discussed with granddaughter at the bedside and patient was moved to ICU, She had numerous questions answered all of them and discussed the current condition prognosis and treatment plan. She verbalized understanding 12/03: Patient was transferred to ICU yesterday evening for hypotension however she did not need to be started on any vasopressin therapy. Patient is on p.o. midodrine and all her antihypertensives have been held. She also received albumin bolus. Patient will be transferred to the floor today. Still complains of bilateral lower extremity pain. Patient is on cefepime and she is scheduled for dialysis today. Hospitalist Physical - Constitutional Vitals: Temp Pulse Resp BP Pulse Ox 97.8 F 85 21 157/98 90 12/03/21 12:00 12/03/21 14:58 12/03/21 14:00 12/03/21 14:30 12/03/21 14:58 General appearance: Present: no acute distress, well-nourished, obese (Morbidly obese), other - EENT Eyes: Present: PERRL, EOM intact ENT: hearing intact, clear oral mucosa, dentition normal - Neck Neck: Present: normal ROM - Respiratory Respiratory effort: normal Respiratory: bilateral: CTA, diminished - Cardiovascular Rhythm: regular Heart Sounds: Present: S1 & S2. Absent: systolic murmur, diastolic murmur - Extremities Extremities: no ischemia, pulses intact, pulses symmetrical, normal temperature, normal color Extremity abnormal: edema, other (pain to BLE ) - Peripheral Assessment Bilateral Lower Extremity Edema Type: Non-pitting Capillary Refill: < 3 seconds Skin Temperature: Warm Peripheral Pulses: within normal limits - Abdominal General gastrointestinal: soft, non-tender, non-distended, normal bowel sounds - Integumentary Integumentary: Present: warm, dry - Psychiatric Psychiatric: cooperative - Neurologic Neurologic: CNII-XII intact, no focal deficits, moves all extremities - Allied Health Allied health notes reviewed: nursing, RT, social work HEART Score - HEART Score Troponin: Troponin T 1.150 ng/mL (0.00-0.029) H* D 10/29/21 22:34 Results - Labs CBC & Chem 7: 12/03/21 05:24 12/03/21 08:00 Labs: Laboratory Last Values WBC 22.3 K/mm3 (4.5-11.0) H 12/03/21 05:24 RBC 2.69 M/mm3 (3.65-5.03) L 12/03/21 05:24 Hgb 7.4 gm/dl (10.1-14.3) L 12/03/21 05:24 Hct 23.5 % (30.3-42.9) L 12/03/21 05:24 MCV 88 fl (79-97) 12/03/21 05:24 MCH 28 pg (28-32) 12/03/21 05:24 MCHC 31 % (30-34) 12/03/21 05:24 RDW 16.5 % (13.2-15.2) H 12/03/21 05:24 Plt Count 263 K/mm3 (140-440) 12/03/21 05:24 Lymph % (Auto) 11.1 % (13.4-35.0) L 11/29/21 13:51 [place]son % (Auto) 15.5 % (0.0-7.3) H 11/29/21 13:51 Eos % (Auto) 1.0 % (0.0-4.3) 11/29/21 13:51 Baso % (Auto) 0.6 % (0.0-1.8) 11/29/21 13:51 Lymph # (Auto) 1.4 K/mm3 (1.2-5.4) 11/29/21 13:51 [place]son # (Auto) 2.0 K/mm3 (0.0-0.8) H 11/29/21 13:51 Eos # (Auto) 0.1 K/mm3 (0.0-0.4) 11/29/21 13:51 Baso # (Auto) 0.1 K/mm3 (0.0-0.1) 11/29/21 13:51 Add Manual Diff Complete 12/03/21 05:24 Total Counted 200 12/03/21 05:24 Seg Neutrophils % 71.8 % (40.0-70.0) H 11/29/21 13:51 Seg Neuts % (Manual) 85.5 % (40.0-70.0) H 12/03/21 05:24 Band Neutrophils % 0.5 % 12/03/21 05:24 Lymphocytes % (Manual) 6.0 % (13.4-35.0) L 12/03/21 05:24 Reactive Lymphs % (Man) 0 % 12/03/21 05:24 Monocytes % (Manual) 4.5 % (0.0-7.3) 12/03/21 05:24 Eosinophils % (Manual) 3.0 % (0.0-4.3) 12/03/21 05:24 Basophils % (Manual) 0.5 % (0.0-1.8) 12/03/21 05:24 Metamyelocytes % 0 % 12/03/21 05:24 Myelocytes % 0 % 12/03/21 05:24 Promyelocytes % 0 % 12/03/21 05:24 Blast Cells % 0 % 12/03/21 05:24 Nucleated RBC % Not Reportable 12/03/21 05:24 Seg Neutrophils # 9.3 K/mm3 (1.8-7.7) H 11/29/21 13:51 Seg Neutrophils # Man 19.1 K/mm3 (1.8-7.7) H 12/03/21 05:24 Band Neutrophils # 0.1 K/mm3 12/03/21 05:24 Lymphocytes # (Manual) 1.3 K/mm3 (1.2-5.4) 12/03/21 05:24 Abs React Lymphs (Man) 0.0 K/mm3 12/03/21 05:24 Monocytes # (Manual) 1.0 K/mm3 (0.0-0.8) H 12/03/21 05:24 Eosinophils # (Manual) 0.7 K/mm3 (0.0-0.4) H 12/03/21 05:24 Basophils # (Manual) 0.1 K/mm3 (0.0-0.1) 12/03/21 05:24 Metamyelocytes # 0.0 K/mm3 12/03/21 05:24 Myelocytes # 0.0 K/mm3 12/03/21 05:24 Promyelocytes # 0.0 K/mm3 12/03/21 05:24 Blast Cells # 0.0 K/mm3 12/03/21 05:24 WBC Morphology Not Reportable 12/03/21 05:24 Hypersegmented Neuts Not Reportable 12/03/21 05:24 Hyposegmented Neuts Not Reportable 12/03/21 05:24 Hypogranular Neuts Not Reportable 12/03/21 05:24 Smudge Cells Not Reportable 12/03/21 05:24 Toxic Granulation Not Reportable 12/03/21 05:24 Toxic Vacuolation Not Reportable 12/03/21 05:24 Dohle Bodies Not Reportable 12/03/21 05:24 Pelger-Huet Anomaly Not Reportable 12/03/21 05:24 Manny Rods Not Reportable 12/03/21 05:24 Platelet Estimate Consistent w auto 12/03/21 05:24 Clumped Platelets Not Reportable 12/03/21 05:24 Plt Clumps, EDTA Not Reportable 12/03/21 05:24 Large Platelets Not Reportable 12/03/21 05:24 Giant Platelets Not Reportable 12/03/21 05:24 Platelet Satelliting Not Reportable 12/03/21 05:24 Plt Morphology Comment Not Reportable 12/03/21 05:24 RBC Morphology Not Reportable 12/03/21 05:24 Dimorphic RBCs Not Reportable 12/03/21 05:24 Polychromasia Not Reportable 12/03/21 05:24 Hypochromasia Not Reportable 12/03/21 05:24 Poikilocytosis Not Reportable 12/03/21 05:24 Anisocytosis 1+ 12/03/21 05:24 Microcytosis Not Reportable 12/03/21 05:24 Macrocytosis Not Reportable 12/03/21 05:24 Spherocytes Not Reportable 12/03/21 05:24 Pappenheimer Bodies Not Reportable 12/03/21 05:24 Sickle Cells Not Reportable 12/03/21 05:24 Target Cells Not Reportable 12/03/21 05:24 Tear Drop Cells Not Reportable 12/03/21 05:24 Ovalocytes Not Reportable 12/03/21 05:24 Helmet Cells Not Reportable 12/03/21 05:24 [place] Bodies Not Reportable 12/03/21 05:24 [place] Rings Not Reportable 12/03/21 05:24 [place] Cells Not Reportable 12/03/21 05:24 Bite Cells Not Reportable 12/03/21 05:24 Crenated Cell Not Reportable 12/03/21 05:24 Elliptocytes Not Reportable 12/03/21 05:24 Acanthocytes (Spur) Not Reportable 12/03/21 05:24 Rouleaux Not Reportable 12/03/21 05:24 Hemoglobin C Crystals Not Reportable 12/03/21 05:24 Schistocytes Not Reportable 12/03/21 05:24 Malaria parasites Not Reportable 12/03/21 05:24 Magdy Bodies Not Reportable 12/03/21 05:24 Hem Pathologist Commnt No 12/03/21 05:24 PT 17.2 Sec. (12.2-14.9) H 10/30/21 16:30 INR 1.27 (0.87-1.13) H 10/30/21 16:30 APTT 44.4 Sec. (24.2-36.6) H 10/30/21 16:30 D-Dimer > 62669 ng/mlDDU (0-234) H 10/30/21 Unknown Heparin Anti-Xa Level 0.54 U.I./ml (0.3-0.7) 12/02/21 23:25 ABG pH 7.450 pH Units (7.350-7.450) 12/01/21 Unknown ABG pCO2 38.0 mm Hg 12/01/21 Unknown ABG pO2 88.9 mm Hg (80.0-90.0) 12/01/21 Unknown ABG HCO3 25.8 mmol/L (20.0-26.0) 12/01/21 Unknown ABG O2 Saturation 97.2 % (95.0-99.0) 12/01/21 Unknown ABG O2 Content 19.4 (0.0-44) 12/01/21 Unknown ABG Base Excess 1.9 mmol/L (-2.0-3.0) 12/01/21 Unknown ABG Hemoglobin 14.3 gm/dl (12.0-16.0) 12/01/21 Unknown ABG Carboxyhemoglobin 1.0 % (0.0-5.0) 12/01/21 Unknown ABG Methemoglobin 0.5 % (0.0-1.5) 12/01/21 Unknown Oxyhemoglobin 95.8 % (95.0-99.0) 12/01/21 Unknown FiO2 21 % 12/01/21 Unknown Sodium 134 mmol/L (137-145) L 12/03/21 08:00 Potassium 4.0 mmol/L (3.6-5.0) 12/03/21 08:00 Chloride 95.9 mmol/L (98-107) L 12/03/21 08:00 Carbon Dioxide 24 mmol/L (22-30) 12/03/21 08:00 Anion Gap 18 mmol/L 12/03/21 08:00 BUN 30 mg/dL (7-17) H 12/03/21 08:00 Creatinine 3.5 mg/dL (0.6-1.2) H 12/03/21 08:00 Estimated GFR 16 ml/min 12/03/21 08:00 BUN/Creatinine Ratio 9 % 12/03/21 08:00 Glucose 110 mg/dL (65-100) H 12/03/21 08:00 POC Glucose 108 mg/dL (70-105) H 12/03/21 11:19 Hemoglobin A1c 6.7 % (4-6) H 10/31/21 04:30 Lactic Acid 0.70 mmol/L (0.7-2.0) 10/31/21 15:45 Calcium 9.0 mg/dL (8.4-10.2) 12/03/21 08:00 Phosphorus 5.20 mg/dL (2.5-4.5) H 12/02/21 03:22 Magnesium 1.60 mg/dL (1.7-2.3) L 11/19/21 14:38 Ferritin 208.4 ng/mL (10.0-200.0) H 10/30/21 Unknown Total Bilirubin < 0.20 mg/dL (0.1-1.2) 11/06/21 02:35 AST 21 units/L (5-40) 11/06/21 02:35 ALT 77 units/L (7-56) H 11/06/21 02:35 Alkaline Phosphatase 84 units/L (35-129) 11/06/21 02:35 Ammonia 31.0 umol/L (25-60) 10/29/21 15:10 Lactate Dehydrogenase 469 units/L (91-180) H 10/30/21 Unknown Troponin T 1.150 ng/mL (0.00-0.029) H* D 10/29/21 22:34 C-Reactive Protein 13.40 mg/dL (0.00-1.30) H 10/30/21 Unknown Total Protein 6.3 g/dL (6.3-8.2) 11/06/21 02:35 Albumin 3.0 g/dL (3.9-5) L 11/06/21 02:35 Albumin/Globulin Ratio 0.9 % 11/06/21 02:35 Triglycerides 68 mg/dL (2-149) 10/29/21 19:40 Cholesterol 98 mg/dL (50-199) 10/29/21 19:40 LDL Cholesterol Direct 43 mg/dL (50-130) L 10/29/21 19:40 HDL Cholesterol 50 mg/dL (40-59) 10/29/21 19:40 Cholesterol/HDL Ratio 1.96 % 10/29/21 19:40 Procalcitonin 61.95 ng/mL (<0.15) 10/30/21 Unknown TSH 3.080 mlU/mL (0.270-4.200) 10/29/21 15:10 Urine Color Yellow (Yellow) 11/13/21 08:30 Urine Turbidity Slightly-cloudy (Clear) 11/13/21 08:30 Urine pH 6.0 (5.0-7.0) 11/13/21 08:30 Ur Specific [place] 1.010 (1.003-1.030) 11/13/21 08:30 Urine Protein <15 mg/dl mg/dL (Negative) 11/13/21 08:30 Urine Glucose (UA) Neg mg/dL (Negative) 11/13/21 08:30 Urine Ketones Tr mg/dL (Negative) 11/13/21 08:30 Urine Blood Sm (Negative) 11/13/21 08:30 Urine Nitrite Neg (Negative) 11/13/21 08:30 Urine Bilirubin Neg (Negative) 11/13/21 08:30 Urine Urobilinogen < 2.0 mg/dL (<2.0) 11/13/21 08:30 Ur Leukocyte Esterase Neg (Negative) 11/13/21 08:30 Urine WBC (Auto) < 1.0 /HPF (0.0-6.0) 11/13/21 08:30 Urine RBC (Auto) < 1.0 /HPF (0.0-6.0) 11/13/21 08:30 U Epithel Cells (Auto) < 1.0 /HPF (0-13.0) 11/13/21 08:30 Urine Mucus Few /HPF 10/29/21 18:15 Urine Eosinophils None seen (None Seen) 11/04/21 Unknown Urine Creatinine 190.9 mg/dL (0.1-20.0) H 11/04/21 Unknown Protein/Creatinin Ratio 0.90 11/04/21 Unknown Urine Sodium 10 mmol/L 11/04/21 Unknown Urine Total Protein 172 mg/dL (5-11.8) H 11/04/21 Unknown Salicylates < 0.3 mg/dL (2.8-20.0) L 10/29/21 15:10 Urine Opiates Screen Negative 10/29/21 18:15 Urine Methadone Screen Negative 10/29/21 18:15 Acetaminophen 5.0 ug/mL (10.0-30.0) L 10/29/21 15:10 Ur Barbiturates Screen Negative 10/29/21 18:15 Ur Phencyclidine Scrn Negative 10/29/21 18:15 Ur Amphetamines Screen Negative 10/29/21 18:15 U Benzodiazepines Scrn Negative 10/29/21 18:15 Urine Cocaine Screen Negative 10/29/21 18:15 U Marijuana (THC) Screen Negative 10/29/21 18:15 Drugs of Abuse Note Disclamer 10/29/21 18:15 Plasma/Serum Alcohol < 0.01 % (0-0.07) 10/29/21 15:10 Coronavirus (PCR) Negative (Negative) 10/30/21 Unknown Hepatitis A IgM Ab Non-reactive (NonReactive) 12/01/21 19:36 Hep Bs Antigen Non-reactive (Negative) 12/01/21 19:36 Hep B Core IgM Ab Non-reactive (NonReactive) 12/01/21 19:36 Hepatitis C Antibody Non-reactive (NonReactive) 12/01/21 19:36 Blood Type O POSITIVE 11/12/21 04:15 Antibody Screen Negative 11/12/21 04:15 Crossmatch See Detail 11/12/21 04:15 Microbiology: Microbiology 11/29/21 22:26 Peripheral/Venous Blood Culture - Preliminary NO GROWTH AFTER 72 HOURS 11/29/21 21:07 Urine,Clean Catch Urine Culture - Final 11/29/21 22:26 Peripheral/Venous Blood Culture - Preliminary Coag Negative Staphylococcus Krishna/IV: Voiding Method Indwelling Catheter Active Medications - Current Medications Current Medications: Generic Name Dose Route Start Last Admin Trade Name Freq PRN Reason Stop Dose Admin Acetaminophen 650 mg 10/29/21 17:04 11/12/21 22:53 Acetaminophen 650 Mg Rect Supp [place] 650 mg Q6H PRN Administration Pain MILD(1-3)/Fever >100.5/NIEVES Acetaminophen 650 mg 11/19/21 16:35 12/02/21 18:20 Acetaminophen 325 Mg Tab PO 650 mg Q6HR PRN Administration PAIN Albumin Human 50 gm 12/02/21 11:00 12/02/21 11:55 Albumin Human 25% (25 Gm/100 Ml) Inj IV 50 gm ZACH PRN Administration Hypotension Alprazolam 0.25 mg 11/14/21 14:29 11/27/21 11:24 Alprazolam 0.25 Mg Tab PO 0.25 mg Q8H PRN Administration Anxiety Dextrose 0 ml 11/04/21 13:48 11/12/21 05:45 Dextrose 10% *Hypoglycemia IV 50 ml PRN PRN Administration Hypoglycemia Docusate Sodium 100 mg 11/18/21 15:00 12/03/21 10:46 Docusate Sodium 100 Mg Cap PO 100 mg BID RAMON Administration Famotidine 10 mg 11/06/21 10:00 12/03/21 10:46 Famotidine 10 Mg Tab PO 10 mg BID RAMON Administration Gabapentin 100 mg 11/28/21 14:00 12/03/21 14:11 Gabapentin 100 Mg Cap PO 100 mg Q8HR RAMON Administration Heparin Sodium (Porcine) 4,000 unit 12/01/21 07:50 12/02/21 17:22 Heparin 10,000 Units/10 Ml Vial 40 unit/kg (4300 unit) 4,000 unit IV Administration Q6H PRN Anti-Xa Assay < 0.1 units/ml Hydrophilic Ointment 1 applic 10/29/21 14:29 11/09/21 08:51 Lip Therapy Vaseline TP 1 applic Q2HR PRN Administration Dry Lips Heparin Sodium/Sodium Chloride 25,000 unit in 500 mls @ 30 mls/hr 11/28/21 17:00 12/03/21 07:49 Heparin/ 0.45% Nacl-25,000 Unit/500 Ml IV 2,050 units/hr TITR RAMON 41 mls/hr Administration Protocol 1,500 UNITS/HR Cefepime HCl 1 gm in 100 mls @ 200 mls/hr 12/01/21 10:00 12/03/21 10:46 Cefepime/Ns 1 Gm/100 Ml IV 200 mls/hr Q24H RAMON Administration Protocol Sodium Chloride 100 mls @ 999 mls/hr 12/01/21 14:44 Nacl 0.9% IV ZACH PRN Hypotension Vasopressin 20 unit/ Sodium 101 mls @ 9.09 mls/hr 12/02/21 16:00 Chloride IV TITR RAMON Protocol 0.03 UNITS/MIN Insulin Human Lispro 0 unit 11/25/21 22:00 12/03/21 11:21 Insulin Lispro 100 Unit/Ml SUB-Q Not Given ACHS [facility] Protocol Lactulose 20 gm 11/18/21 14:43 11/29/21 21:20 Lactulose 20 Gm/30 Ml Oral Liqd PO 20 gm Q6H PRN Administration Constipation Melatonin 10 mg 11/22/21 17:31 11/27/21 21:32 Melatonin 5 Mg Tab PO 10 mg QHS PRN Administration Sleep Midodrine 10 mg 12/01/21 12:00 12/03/21 12:14 Midodrine 5 Mg Tab PO 10 mg TID@0800,1200,1600 RAMON Administration Morphine Sulfate 1 mg 11/28/21 15:00 12/02/21 20:02 Morphine 2 Mg/1 Ml Inj IV 1 mg Q4H PRN Administration Pain, Moderate (4-6) Multi-Ingred Cream/Lotion/Oil/Oint 1 applic 10/29/21 14:29 11/06/21 09:25 Mineral Oil/Petrolatum, White Ophth Oint 3.5 Gm OU 1 applic Q4HR PRN Administration Dry Eye(s) Oxycodone/Acetaminophen 1 tab 11/27/21 14:31 12/03/21 11:52 Oxycodone /Acetaminophen 5-325mg Tab PO 1 tab Q4H PRN Administration Pain, Moderate (4-6) Polyethylene Glycol 17 gm 11/20/21 12:47 11/25/21 08:30 Polyethylene Glycol 3350 17 Gm Powder PO 17 gm QDAY PRN Administration Constipation Senna/Docusate Sodium 1 tab 11/16/21 22:00 12/03/21 10:46 Sennosides/Docusate Sodium 8.6/50 Mg Tab PO 1 tab BID RAMON Administration Sodium Chloride 10 ml 10/29/21 22:00 12/03/21 10:47 Sodium Chloride 0.9% 10 Ml Flush Syringe IV 10 ml BID RAMON Administration Sodium Chloride 10 ml 10/29/21 17:04 Sodium Chloride 0.9% 10 Ml Flush Syringe IV PRN PRN LINE FLUSH Nutrition/Malnutrition Assess - Dietary Evaluation Nutrition/Malnutrition Findings: Nutrition Notes Start: 10/30/21 09:50 Freq: Status: Active Protocol: Document 12/02/21 17:02 YOVANY (Rec: 12/02/21 17:10 NHALL [id number]) Nutrition Notes Initial or Follow up Reassessment Current Diagnosis Acute Kidney Injury,Sepsis, Hypertension Other Pertinent Diagnosis s/p cardiac arrest, anemia Current Diet [facility] soft Labs/Tests Na 129 BUN 42 Cr 4.4 Phos 5.2 Pertinent Medications Vasopressin gtt Height 5 ft 10 in Weight 114.8 kg [place] Body Weight (kg) 68.18 BMI 36.3 Weight Status Obese Subjective/Other Information Pt transferred to ICU sec to hypotension. Worsening renal function; HD initiated yesterday. Pt reports poor appetite; observed numerous crackers on bedside table. Assisted pt with applesauce ( she ate 100%). Pt willing to try an ONS. She says she does not eat a lot anyway. She has consumed 25% of last 4 documented meals. Percent of energy/protein needs met: 32% energy 18% pro Burn Absent Trauma Absent Current % PO Poor (25-49%) #1 Nutrition Diagnosis Inadequate oral intake As Evidenced by Signs and Symptoms PO intake meeting <50% of energy and pro needs Diagnosis Progress(for reassessment Continues documentation) Is patient on ventilator? No Is Patient Ambulatory and/or Out of Bed No REE-([facility]-confined to bed) 2120.952 Kcal/Kg value to use for calculation 14 Approximate Energy Requirements Using 1607 kcal/Kg Calculation Used for Recommendations Kcal/kg Additional Notes Pro needs >1.2g/kg adjBW: > 110g/day Fluid needs 1-1.5L/day Nutrition Intervention Change Diet Order: Continue [facility] soft diet Add Supplement/Snack (indicate name/kcal Nepro once daily (vanilla) /protein ) Provides kCal: 425 Provides Protein (gm) 19 Goal #1 PO intake of meals plus ONS to meet at least 75% energy and pro needs Follow-Up By: 12/05/21 Additional Comments F/U: intakes (meals, ONS), pressor support
[2021-12-03] MEDS: MORPHINE 2 MG/1 ML INJ IV PRN (21:43)
[2021-12-03] MEDS ORDERED: dilTIAZem 30 MG TAB PO ONE (22:35)
[2021-12-03] MEDS: ALPRAZolam 0.25 MG TAB PO PRN (23:02)
[2021-12-04] MEDS ORDERED: dilTIAZem 30 MG TAB PO ONE ×2 (05:30→23:30)
[2021-12-04] MEDS: GABAPENTIN 100 MG CAP PO SCH ×3 (06:18→21:32)
[2021-12-04 06:29] LABS: Hematocrit 25.6 % (30.3-42.9); Mean Corpuscular HGB Conc 31 % (30-34); Mean Corpuscular Volume 89 fl (79-97); Platelet Count 276 K/mm3 (140-440); Red Blood Count 2.88 M/mm3 (3.65-5.03); Red Cell Distribution Width 16.4 % (13.2-15.2)
[2021-12-04 06:47] LABS: Calcium 8.8 mg/dL (8.4-10.2)
[2021-12-04 08:05] LABS: Anisocytosis 1+; Basophils % (Manual) 0 % (0.0-1.8); Platelet Estimate Consistent w Auto; Total Cells Counted 100
[2021-12-04] MEDS: INSULIN LISPRO 100 UNIT/ML SUB-Q SCH ×4 (08:52→23:48)
[2021-12-04] MEDS: MIDODRINE 5 MG TAB PO SCH ×3 (09:02→17:27)
[2021-12-04] MEDS: DOCUSATE SODIUM 100 MG CAP PO SCH ×2 (09:02→21:32)
[2021-12-04] MEDS: FAMOTIDINE 10 MG TAB PO SCH ×2 (09:02→21:32)
[2021-12-04] MEDS: SENNOSIDES/DOCUSATE SODIUM 8.6/50 MG TAB PO SCH ×2 (09:02→21:32)
[2021-12-04] MEDS: oxyCODONE /ACETAMINOPHEN 5-325MG TAB PO PRN (09:09)
--- NOTE | 2021-12-04 09:35 | Progress Note ---
Assessment and Plan Assessment and plan: Assessment and plan: This is a 66-year-old female with past medical history of HTN and Obesity admitted for septic shock, s/p cardiac arrest with ROSC in the field now intubated and on ventilatory support s/p cardiac arrest, collapse at [facility], HFrEF, shock/hypotension resolved, Atrial fibrillation/atrial flutter -Cardiac arrest and collapse at [facility] with ROSC - S/p Cardizem gtt- d/c due to low EF; now on PO Amio -s/p vasopressor support with levophed -Echocardiogram LVEF 25 to 30%, no pericardial effusion -LifeVest in place Hypotension/shock: Possible septic shock; -midodrine po -Blood pressure monitoring per protocol Spontaneous left retroperitoneal hemorrhage requiring cessation of anticoagulation. -Ultimately IVC filter was placed, but patient's DVTs continue to propagate. -There are now extensive bilateral lower extremity DVTs. -Heparin drip Fever/lung infiltrate/leukocytosis/sepsis -Possible healthcare associated pneumonia -Continue cefepime, consult ID Sepsis /Gram-positive bacteremia; -IV Vanco 1 dose, repeat cultures -Consult ID Acute kidney injury/worsening renal function likely secondary to ATN -Nephrology initiated hemodialysis, vascular consulted for Vas-Cath placement -HD per nephrology -Avoid nephrotoxic medications -Renally dose medications Severe anemia -S/p 4 units PRBC -Monitor CBC -Transfuse for hemoglobin less than 7 -Anticoagulation with heparin drip -S/p IVC filter Anemia, due to retroperitoneal bleed -D-dimer greater than 10,000 -CTA chest with no evidence of PE -Bilateral lower extremity ultrasound positive for DVT s/p IVC filter -Vascular surgery consulted, appreciate recommendations -Worsening DVT -Heparin drip Acute DVT bilateral lower extremities -Worsening DVT, Status post IVC filter placement 11/22 -On heparin drip, vascular IR following -Repeat venous duplex ultrasound on 11/21 showed progression of left peroneal DVT extending into popliteal vein. Acute hypoxic respiratory failure, right pneumothorax, Angioedema (resolved), pulmonary edema -Intubated on 10/29 and extubated on 11/11 -Pulmonary critical evaluated the patient, managed in ICU later transferred to telemetry -Bipap q HS and prn, at high risk for KOLBY with morbid obesity -s/p right chest tube for pneumothorax -s/p steroids for angioedema -On Lasix for pulmonary edema. Transaminitis likely shocked liver - resolved Shock cardiogenicsuspected sepsis -Fever was as high as 102 with a leukocytosis Blood, urine and sputum cultures negative -COVID-19 PCR negative -S/p empiric antibiotic therapy for possible pneumonia with Rocephin and azithromycin () -S/p Levophed gtt for hypotension -Fever and leukocytosis resolved -Monitor WBC and temperature curve Acute Metabolic encephalopathy, agitation/anxiety -Etiology likely from a cardiac arrest, shock and cerebral hypoperfusion CT head no acute focal parenchymal lesion in the brain -Neurology consulted, appreciate recommendations -EEG and MRI noted, Neuro recommend to cut down on sedation as possible Mental status significantly improved, currently fairly alert and oriented. Answers appropriately. Hypertension -All antihypertensives currently on hold Hyperglycemia ,resolved) -Avoid hypoglycemia -Hbg A1C 6.7 -SSI and lantus q hs (titrate as needed) -Accu-Cheks q. 6 Morbid obesity High risk for KOLBY On nightly BiPAP Deconditioning PT/OT History Interval history: 10/30: Intubated and sedated, on fentanyl gtt. Open eyes spontaneously but does not follow any commands. On vasopressors, titrate as tolerated for MAP above 65. Patient febrile overnight, continue empiric IV Abx, culture data and COVID PCR pending. Patient is also s/p CT placement due to spontaneous pneumothorax. 2D echo is pending and Cardiology is consulted. 10/31: Patient remains intubated and following commands. Levophed drip stopped and potassium repleted. Patient started on tube feeding. Remains in soft bilateral restraints. 11/01: RN noted ST changes on BSM and 12 lead EKG obtained which showed ST. Given Ativan 1mg for agitation as she is maxed on fentanyl drip and IV push fentanyl did not seem to help. Patient was started on CPAP this morning by RT but remained on fentanyl drip and was having periods of apnea. Plan was to retry CPAP again in the p.m. with sedation off. 11/02: Rate increased r/t hypercapnea on ABG, sedation reduced. Given kionex for hyperkalemia and was started on levophed overnight for hypotension. 11/03: Overnight patient had tachycardia and was given Cardizem and Lopressor. Lopressor was repeated in the a.m. due to tachycardia. Patient will be started on amiodarone with a bolus per cardiology. Patient started on normal saline per liter per [facility] and steroids for angioedema. Noted to have bright red blood when suctioned from oh ETT. Remains on heparin drip as H/H is stable for now. Will reevaluate. Fentanyl drip was restarted last night due to agitation. Dr. Flores updated family today 11/04: Patient was sedated on fentanyl however off sedation is able to follow commands, a.m. labs completed in the p.m. and show hyperkalemia with increased renal function studies. Nephrology, neurology consulted by [facility]. Given Kayexalate, insulin and D50 for hyperkalemia. Patient remains on amiodarone. 11/05: Patient needed to be sedated on fentanyl again to today. overnight krishna was replaced. Hyperkalemia->given kionex 60 for 5.6. Repeat K 6-> Dr. Grant informed and requested bumex, kionex, insulin, d50, calcium gluconate and sodium bicarb with repeat BMP in 2 hours which were placed. HR remains elevated. 11/06: Patient remained in atrial fibrillation/atrial flutter with heart rate in the 150s despite being on amnio drip and was given amnio bolus, Cardizem bolus and started on Cardizem drip by cardiology. Patient is on beta-blockers p.o. scheduled and to feedings changed to Nepro. Kayexalate was given in the morning by nephrology due to hyperkalemia. 11/07: Patient is only responsive to mild stimuli, precedex added in an attempt to wean off fentanyl gtt to better assess her mental status. Neurology also on consult, pending MRI and EEG. Patient remains in Aflutter this am, HR in the 80 to 90s, still on amiodarone and heparin gtt. 11/08: Fentanyl gtt is off, only on precedex gtt. Patient is still not following any commands. MRI brain and EEG completed. Neuro recommendations noted, sedatives agents decreased. FWF added for hypernatremia and low K repleted, repeat labs ordered. Placed a call and spoke with patient's daughter, Eva Brown . She was updated on patient's conditions and status. All questions and concerns were voiced at this time. 11/09: Patient is awake and alert this am, following commands and appropriate. Remains on precedex gtt, plan for possible PST today. Hypertensive overnight, meds adjusted by Cardio and PRN Hydralazine added for SBP greater than 160. CT dislodged overnight, CXR is stable with no significant change. F/U CXR in the am. Patient's daughter, Eva Brown, visited with patient. She was updated on patient's status and goal of care for today. All questions and concerns were voiced at this time. 11/10: Mentation remains intact, still on precedex gtt. This am CXR noted still with fluid overload s/p X1 dose of IV lasix, good response from IV lasix overnight. Hypernatremia improved, D5W d/dayday. Still with persistent hypokalemia, continue electrolytes replacement and frequent lab check. Daily IV lasix and aldactone added by Cardio. Patient is also with persistent low grade fevers overnight, leukocytosis with mild improvement this am. Will get a repeat sputum culture, hold off on IV abx for now. Consider ID consult if fevers and le ukocytosis persist. Patient tolerated PST X4hrs yesterday. PST again today, plan to wean to extubate if tolerated. 11/11: IAM overnight. Off precedex gtt and tolerated PST this am. Plan to wean to extubate today. Additional IV lasix given, plan to keep patient at a net negative balance for better lung compliance. F/U CXR in the am. K improved this am, repeat BMP this afternoon since diuresing. Remains with low grade fevers, leukocytosis downtrending, will continue to monitor. Speech/PT/OT ordered 11/12: S/p extubation, now stable on 3L NC. This am CXR noted with no significant changes, lasix changed to IV X4days BID. Drop in H&H this am, and Lt. flank ecchymosis noted. Heparin gtt on hold for now and orders placed for 1 unit of PRBCs and Ct Abd/Pelvis w/o con to r/o retroperitoneal bleed. Pending speech swallow eval, keep patient NPO for now. Patient is stable for IMCU status 11/13: Patient with increased WOB and tachycardia this am, patient was placed on Bipap and precedex gtt was resumed. CXR with mild improvement. CT Abd/Pelvis also reviewed large hematomas noted at the Lt. retroperitoneum and left posterior lateral abdominal wall. Heparin gtt is already on hold, patient is he modynamically stable. Vascular Surgery consulted for possible IVC filter eval. Patient s/p 2units of PRBCs, will continue to trend H&H and transfuse if hbg is less than 7. Worsening renal function this am, IF diuretic on hold for now. Patient is also febrile with spike in wbcs most likely reactive to bleed, will panculture and hold off on IV Abx for now. Patient also failed speech bedside swallow eval yesterday, NGT in placed plan to resume enteral nutrition 11/14: Patient had bilateral lower extremity Doppler ultrasound and vascular surgery has recommended multiphasic CT angio of the abdomen and pelvis with and without contrast if H/H drops and does not recommend IVC filter at this time as the DVTs are infrapopliteal and recommends a DVT study weekly for 2 weeks. FWF 250 q4 ml per nephro. Started on as needed Xanax and p.o. amiodarone. She did not pass her ST evaluation today. Will be transferred to CU. 11/15: Resting comfortably on encounter. Speech cleared for pureed diet. Remains on 3l satting 98 % on bedside encounter. Does not appear to be in respiratory distress. Will continue to hold AC, No ivc filter planned at this time. qweekly doppler to monitor for migration of DVT per vascular. If demonstrated, will consider IVC filter. CBC ordered for tomorrow, will continue monitoring in light of retroperitoneal hematoma. FWF increased by nephrology to 350cc q4hr d/t hypernatremia. UOP/renal function both improved. D/w cardiology, will continue amiodorone an additional 24hrs. Plan to change dosing of metoprolol. Continue to wean off of precedex. Continue xanax scheduled for anxiety. physical therapy recs noted, fernanda / ltac will discuss with CM. Continue IMCU monitoring. 11/16: Pulmonary congestion this AM. CXR ordered. Lasix 40 mg IV x 1 order this AM. Will monitor for 24 hrs. potential downgrade to medical floor tomorrow. 11/17: Persisting pulmonary congestion, was on bipap overnight into this AM. Will order additional lasix 40 mg IV x 2. CXR ordered for AM. Possible downgrade to floor tomorrow. Anticipate d/c sunday. 11/18: Patient seen and examined, continue weaning, will continue diuresis BID, discussed with daughter. 11/19: Patient seen and examined this morning doing well no acute distress noted. Lasix was increased to twice daily to 20 mg IV. Clinically improving. Patient will be transferred to telemetry today can be switched to Lasix p.o. twice daily in a.m. She has her weekly Doppler of lower extremity tomorrow vascular is following for this. She was taken off anticoagulation secondary to retroperitoneal bleed., The anticoagulation was started initially for atrial fibrillation and an infrapopliteal DVT. During her hospital stay she had a prolonged ventilator management and was successfully weaned off. She also received a total of 4 units of packed red blood cell. Hemoglobin has remained stable. Anticipate discharge in next 48 hours if continues to clinically stay stable. : Transferred from ICU on 11/19. Progressive improving. Currently awake and oriented. O2 weaned to 4 L. Hemodynamically stable. BP control being optimized. MiraLAX for constipation. Hemoglobin stable on the heparin infusion, being monitored closely with history of retroperitoneal bleed. 11/21: Patient remains mostly bedridden. She is awake and oriented on 2 L of O2. Repeat ultrasound showed extension of left peroneal DVT into popliteal vein. Heparin was discontinued for significant retroperitoneal bleed and off anticoagulation since. Vascular surgery plan for placement of IVC filter tomorrow. Patient is chest pains, palpitations, hemoptysis. She has some cough. Left lower extremity pain likely from DVT better today. Discussed with the patient, nursing staff and vascular surgery. 11/22: The infrapopliteal vein thrombosis has propagated to the left popliteal vein. Vascular surgery to perform IVC filter placement today. 11/23: Vascular surgery placed IVC filter yesterday. Continue metoprolol 100 mg p.o. twice daily, Aldactone 25 mg p.o. daily and losartan 25 mg p.o. daily. Patient still requiring BiPAP (IPAP18, EPAP8) with FiO2 of 30%. Continue to wean oxygen per pulmonary recommendations. Nurse reports patient is having vaginal bleeding. We will check serial CBC and pelvic ultrasound 11/24: I discussed with cardiology yesterday the need for a LifeVest. LifeVest is ordered and pending. Patient is s/p IVC filter placement. Continue metoprolol 100 mg p.o. twice daily, Aldactone 25 mg p.o. daily and losartan 25 mg p.o. daily. Patient still requiring BiPAP (IPAP18, EPAP8) with FiO2 of 30%. Continue to wean oxygen per pulmonary recommendations. No further reports of vaginal bleeding. Pelvic ultrasound negative 11/25: Awaiting for LifeVest. Patient is s/p IVC filter placement. Continue metoprolol 100 mg p.o. twice daily, Aldactone 25 mg p.o. daily and losartan 25 mg p.o. daily. Patient still requiring BiPAP (IPAP18, EPAP8) with FiO2 of 30%. Continue to wean oxygen per pulmonary recommendations. 11/26: Physical therapy recommends subacute rehab. Still awaiting LifeVest. Patient is s/p IVC filter placement. Continue metoprolol 100 mg p.o. twice daily, Aldactone 25 mg p.o. daily and losartan 25 mg p.o. daily. Patient still requiring BiPAP (IPAP18, EPAP8) with FiO2 of 30% at night. Continue to wean oxygen per pulmonary recommendations. Patient currently with 2 L O2. 11/27: Physical therapy recommends subacute rehab. Patient has a LifeVest. Patient's left lower extremity pain likely related to DVT. Continue pain control. Continue metoprolol 100 mg p.o. twice daily, Aldactone 25 mg p.o. daily and losartan 25 mg p.o. daily. Patient still requiring BiPAP (IPAP18, EPAP8) with FiO2 of 30% at night. 11/28: Physical therapy recommends subacute rehab. Patient has a LifeVest. Patient continues to complain of left lower extremity pain which makes it very difficult for ambulation. Continue Percocet for pain control. Add neurontin for possible neuropathy. Etiology is likely secondary to DVT. Continue metoprolol 100 mg p.o. twice daily, Aldactone 25 mg p.o. daily and losartan 25 mg p.o. daily. Patient still requiring BiPAP (IPAP18, EPAP8) with FiO2 of 30% at night. Repeated Doppler US of LLE and will ask vascular surgery to revisit. 11/29; worsening lower extremity DVTs, vascular following, on heparin drip 11/30; low-grade fever, leukocytosis, shortness of breath, chest x-ray possible left-sided pneumonia/possible healthcare associated pneumonia Blood cultures already sent, empiric antibiotic cefepime[renal dose confirmed wi th pharmacist] ID consult if needed 12/01; gram-positive bacteremia preliminary, add vancomycin 1 dose, repeat cultures, consult ID Worsening renal function, nephrology initiated hemodialysis today, patient is critically ill, very poor prognosis, with multiple comorbidities And critical issues. [employer] recommendations noted and appreciated 12/02; Gram positive bacteremia/possible HCAP and sepsis, on cefepime and 1 dose Vanco. Nephrology initiated hemodialysis, ID consult. Patient is hypotensive, pulmonary critical recommended transfer to ICU and start vasopressors for close observation overnight. Dr. Padron discussed with patient's daughter over patient's telephone and discussed in detail patient's condition, new developments sepsis, renal failure on hemodialysis anticoagulation for DVT and severe cardiomyopathy, also discussed poor prognosis, and the plans of transferring the patient to ICU for close observation. Many questions, and answered all of them. dr. Padron also discussed with granddaughter at the bedside and patient was moved to ICU, She had numerous questions answered all of them and discussed the current condition prognosis and treatment plan. She verbalized understanding 12/03: Patient was transferred to ICU yesterday evening for hypotension however she did not need to be started on any vasopressin therapy. Patient is on p.o. midodrine and all her antihypertensives have been held. She also received albumin bolus. Patient will be transferred to the floor today. Still complains of bilateral lower extremity pain. Patient is on cefepime and she is scheduled for dialysis today. 12/04: Some complaint of leg pain. Percocet given for pain control. Patient is very deconditioned, will need aggressive PT. Will work on d/c planning with cm. Hospitalist Physical - Physical exam Narrative exam: General appearance: Present: no acute distress, obese - EENT Eyes: Present: PERRL, EOM intact ENT: hearing intact, dentition normal - Neck Neck: Present: normal ROM - Respiratory Respiratory effort: normal Respiratory: bilateral: CTA - Cardiovascular Rhythm: regular Heart Sounds: Present: S1 & S2, systolic murmur, diastolic murmur - Extremities Extremities: no ischemia, pulses intact, pulses symmetrical, normal temperature, normal color Peripheral Pulses: within normal limits - Abdominal General gastrointestinal: soft, non-distended, normal bowel sounds - Integumentary Integumentary: Present: warm, dry, bruising from hematoma noted. - Psychiatric Psychiatric: cooperative - Neurologic Neurologic: CNII-XII intact, moves all extremities - Allied Health Allied health notes reviewed: nursing, RT, social work - Constitutional Vitals: Temp Pulse Resp BP Pulse Ox 98.6 F 139 H 18 100/57 98 12/04/21 08:16 12/04/21 08:16 12/04/21 09:09 12/04/21 08:16 12/04/21 08:16 General appearance: Present: no acute distress, well-nourished, obese (Morbidly obese), other HEART Score - HEART Score Troponin: Troponin T 1.150 ng/mL (0.00-0.029) H* D 10/29/21 22:34 Results - Labs CBC & Chem 7: 12/04/21 06:15 12/04/21 06:15 Labs: Laboratory Last Values WBC 18.5 K/mm3 (4.5-11.0) H 12/04/21 06:15 RBC 2.88 M/mm3 (3.65-5.03) L 12/04/21 06:15 Hgb 8.0 gm/dl (10.1-14.3) L 12/04/21 06:15 Hct 25.6 % (30.3-42.9) L 12/04/21 06:15 MCV 89 fl (79-97) 12/04/21 06:15 MCH 28 pg (28-32) 12/04/21 06:15 MCHC 31 % (30-34) 12/04/21 06:15 RDW 16.4 % (13.2-15.2) H 12/04/21 06:15 Plt Count 276 K/mm3 (140-440) 12/04/21 06:15 Lymph % (Auto) 11.1 % (13.4-35.0) L 11/29/21 13:51 [place] % (Auto) 15.5 % (0.0-7.3) H 11/29/21 13:51 Eos % (Auto) 1.0 % (0.0-4.3) 11/29/21 13:51 Baso % (Auto) 0.6 % (0.0-1.8) 11/29/21 13:51 Lymph # (Auto) 1.4 K/mm3 (1.2-5.4) 11/29/21 13:51 [place] # (Auto) 2.0 K/mm3 (0.0-0.8) H 11/29/21 13:51 Eos # (Auto) 0.1 K/mm3 (0.0-0.4) 11/29/21 13:51 Baso # (Auto) 0.1 K/mm3 (0.0-0.1) 11/29/21 13:51 Add Manual Diff Complete 12/04/21 06:15 Total Counted 100 12/04/21 06:15 Seg Neutrophils % 71.8 % (40.0-70.0) H 11/29/21 13:51 Seg Neuts % (Manual) 74.0 % (40.0-70.0) H 12/04/21 06:15 Band Neutrophils % 0 % 12/04/21 06:15 Lymphocytes % (Manual) 11.0 % (13.4-35.0) L 12/04/21 06:15 Reactive Lymphs % (Man) 0 % 12/04/21 06:15 Monocytes % (Manual) 9.0 % (0.0-7.3) H 12/04/21 06:15 Eosinophils % (Manual) 2.0 % (0.0-4.3) 12/04/21 06:15 Basophils % (Manual) 0 % (0.0-1.8) 12/04/21 06:15 Metamyelocytes % 4.0 % 12/04/21 06:15 Myelocytes % 0 % 12/04/21 06:15 Promyelocytes % 0 % 12/04/21 06:15 Blast Cells % 0 % 12/04/21 06:15 Nucleated RBC % Not Reportable 12/04/21 06:15 Seg Neutrophils # 9.3 K/mm3 (1.8-7.7) H 11/29/21 13:51 Seg Neutrophils # Man 13.7 K/mm3 (1.8-7.7) H 12/04/21 06:15 Band Neutrophils # 0.0 K/mm3 12/04/21 06:15 Lymphocytes # (Manual) 2.0 K/mm3 (1.2-5.4) 12/04/21 06:15 Abs React Lymphs (Man) 0.0 K/mm3 12/04/21 06:15 Monocytes # (Manual) 1.7 K/mm3 (0.0-0.8) H 12/04/21 06:15 Eosinophils # (Manual) 0.4 K/mm3 (0.0-0.4) 12/04/21 06:15 Basophils # (Manual) 0.0 K/mm3 (0.0-0.1) 12/04/21 06:15 Metamyelocytes # 0.7 K/mm3 12/04/21 06:15 Myelocytes # 0.0 K/mm3 12/04/21 06:15 Promyelocytes # 0.0 K/mm3 12/04/21 06:15 Blast Cells # 0.0 K/mm3 12/04/21 06:15 WBC Morphology Not Reportable 12/04/21 06:15 Hypersegmented Neuts Not Reportable 12/04/21 06:15 Hyposegmented Neuts Not Reportable 12/04/21 06:15 Hypogranular Neuts Not Reportable 12/04/21 06:15 Smudge Cells Not Reportable 12/04/21 06:15 Toxic Granulation Not Reportable 12/04/21 06:15 Toxic Vacuolation Not Reportable 12/04/21 06:15 Dohle Bodies Not Reportable 12/04/21 06:15 Pelger-Huet Anomaly Not Reportable 12/04/21 06:15 Manny Rods Not Reportable 12/04/21 06:15 Platelet Estimate Consistent w auto 12/04/21 06:15 Clumped Platelets Not Reportable 12/04/21 06:15 Plt Clumps, EDTA Not Reportable 12/04/21 06:15 Large Platelets Not Reportable 12/04/21 06:15 Giant Platelets Not Reportable 12/04/21 06:15 Platelet Satelliting Not Reportable 12/04/21 06:15 Plt Morphology Comment Not Reportable 12/04/21 06:15 RBC Morphology Not Reportable 12/04/21 06:15 Dimorphic RBCs Not Reportable 12/04/21 06:15 Polychromasia Not Reportable 12/04/21 06:15 Hypochromasia Not Reportable 12/04/21 06:15 Poikilocytosis Not Reportable 12/04/21 06:15 Anisocytosis 1+ 12/04/21 06:15 Microcytosis Not Reportable 12/04/21 06:15 Macrocytosis Not Reportable 12/04/21 06:15 Spherocytes Not Reportable 12/04/21 06:15 Pappenheimer Bodies Not Reportable 12/04/21 06:15 Sickle Cells Not Reportable 12/04/21 06:15 Target Cells Not Reportable 12/04/21 06:15 Tear Drop Cells Not Reportable 12/04/21 06:15 Ovalocytes Not Reportable 12/04/21 06:15 Helmet Cells Not Reportable 12/04/21 06:15 [place] Bodies Not Reportable 12/04/21 06:15 [place] Rings Not Reportable 12/04/21 06:15 [place] Cells Not Reportable 12/04/21 06:15 Bite Cells Not Reportable 12/04/21 06:15 Crenated Cell Not Reportable 12/04/21 06:15 Elliptocytes Not Reportable 12/04/21 06:15 Acanthocytes (Spur) Not Reportable 12/04/21 06:15 Rouleaux Not Reportable 12/04/21 06:15 Hemoglobin C Crystals Not Reportable 12/04/21 06:15 Schistocytes Not Reportable 12/04/21 06:15 Malaria parasites Not Reportable 12/04/21 06:15 Magdy Bodies Not Reportable 12/04/21 06:15 Hem Pathologist Commnt No 12/04/21 06:15 PT 17.2 Sec. (12.2-14.9) H 10/30/21 16:30 INR 1.27 (0.87-1.13) H 10/30/21 16:30 APTT 44.4 Sec. (24.2-36.6) H 10/30/21 16:30 D-Dimer > 27541 ng/mlDDU (0-234) H 10/30/21 Unknown Heparin Anti-Xa Level 0.58 U.I./ml (0.3-0.7) 12/03/21 23:54 ABG pH 7.450 pH Units (7.350-7.450) 12/01/21 Unknown ABG pCO2 38.0 mm Hg 12/01/21 Unknown ABG pO2 88.9 mm Hg (80.0-90.0) 12/01/21 Unknown ABG HCO3 25.8 mmol/L (20.0-26.0) 12/01/21 Unknown ABG O2 Saturation 97.2 % (95.0-99.0) 12/01/21 Unknown ABG O2 Content 19.4 (0.0-44) 12/01/21 Unknown ABG Base Excess 1.9 mmol/L (-2.0-3.0) 12/01/21 Unknown ABG Hemoglobin 14.3 gm/dl (12.0-16.0) 12/01/21 Unknown ABG Carboxyhemoglobin 1.0 % (0.0-5.0) 12/01/21 Unknown ABG Methemoglobin 0.5 % (0.0-1.5) 12/01/21 Unknown Oxyhemoglobin 95.8 % (95.0-99.0) 12/01/21 Unknown FiO2 21 % 12/01/21 Unknown Sodium 135 mmol/L (137-145) L 12/04/21 06:15 Potassium 4.2 mmol/L (3.6-5.0) 12/04/21 06:15 Chloride 96.9 mmol/L (98-107) L 12/04/21 06:15 Carbon Dioxide 26 mmol/L (22-30) 12/04/21 06:15 Anion Gap 16 mmol/L 12/04/21 06:15 BUN 19 mg/dL (7-17) H 12/04/21 06:15 Creatinine 2.8 mg/dL (0.6-1.2) H 12/04/21 06:15 Estimated GFR 20 ml/min 12/04/21 06:15 BUN/Creatinine Ratio 7 % 12/04/21 06:15 Glucose 102 mg/dL (65-100) H 12/04/21 06:15 POC Glucose 106 mg/dL (70-105) H 12/04/21 08:14 Hemoglobin A1c 6.7 % (4-6) H 10/31/21 04:30 Lactic Acid 0.70 mmol/L (0.7-2.0) 10/31/21 15:45 Calcium 8.8 mg/dL (8.4-10.2) 12/04/21 06:15 Phosphorus 5.20 mg/dL (2.5-4.5) H 12/02/21 03:22 Magnesium 1.60 mg/dL (1.7-2.3) L 11/19/21 14:38 Ferritin 208.4 ng/mL (10.0-200.0) H 10/30/21 Unknown Total Bilirubin < 0.20 mg/dL (0.1-1.2) 11/06/21 02:35 AST 21 units/L (5-40) 11/06/21 02:35 ALT 77 units/L (7-56) H 11/06/21 02:35 Alkaline Phosphatase 84 units/L (35-129) 11/06/21 02:35 Ammonia 31.0 umol/L (25-60) 10/29/21 15:10 Lactate Dehydrogenase 469 units/L (91-180) H 10/30/21 Unknown Troponin T 1.150 ng/mL (0.00-0.029) H* D 10/29/21 22:34 C-Reactive Protein 13.40 mg/dL (0.00-1.30) H 10/30/21 Unknown Total Protein 6.3 g/dL (6.3-8.2) 11/06/21 02:35 Albumin 3.0 g/dL (3.9-5) L 11/06/21 02:35 Albumin/Globulin Ratio 0.9 % 11/06/21 02:35 Triglycerides 68 mg/dL (2-149) 10/29/21 19:40 Cholesterol 98 mg/dL (50-199) 10/29/21 19:40 LDL Cholesterol Direct 43 mg/dL (50-130) L 10/29/21 19:40 HDL Cholesterol 50 mg/dL (40-59) 10/29/21 19:40 Cholesterol/HDL Ratio 1.96 % 10/29/21 19:40 Procalcitonin 61.95 ng/mL (<0.15) 10/30/21 Unknown TSH 3.080 mlU/mL (0.270-4.200) 10/29/21 15:10 Urine Color Yellow (Yellow) 11/13/21 08:30 Urine Turbidity Slightly-cloudy (Clear) 11/13/21 08:30 Urine pH 6.0 (5.0-7.0) 11/13/21 08:30 Ur Specific [place] 1.010 (1.003-1.030) 11/13/21 08:30 Urine Protein <15 mg/dl mg/dL (Negative) 11/13/21 08:30 Urine Glucose (UA) Neg mg/dL (Negative) 11/13/21 08:30 Urine Ketones Tr mg/dL (Negative) 11/13/21 08:30 Urine Blood Sm (Negative) 11/13/21 08:30 Urine Nitrite Neg (Negative) 11/13/21 08:30 Urine Bilirubin Neg (Negative) 11/13/21 08:30 Urine Urobilinogen < 2.0 mg/dL (<2.0) 11/13/21 08:30 Ur Leukocyte Esterase Neg (Negative) 11/13/21 08:30 Urine WBC (Auto) < 1.0 /HPF (0.0-6.0) 11/13/21 08:30 Urine RBC (Auto) < 1.0 /HPF (0.0-6.0) 11/13/21 08:30 U Epithel Cells (Auto) < 1.0 /HPF (0-13.0) 11/13/21 08:30 Urine Mucus Few /HPF 10/29/21 18:15 Urine Eosinophils None seen (None Seen) 11/04/21 Unknown Urine Creatinine 190.9 mg/dL (0.1-20.0) H 11/04/21 Unknown Protein/Creatinin Ratio 0.90 11/04/21 Unknown Urine Sodium 10 mmol/L 11/04/21 Unknown Urine Total Protein 172 mg/dL (5-11.8) H 11/04/21 Unknown Salicylates < 0.3 mg/dL (2.8-20.0) L 10/29/21 15:10 Urine Opiates Screen Negative 10/29/21 18:15 Urine Methadone Screen Negative 10/29/21 18:15 Acetaminophen 5.0 ug/mL (10.0-30.0) L 10/29/21 15:10 Ur Barbiturates Screen Negative 10/29/21 18:15 Ur Phencyclidine Scrn Negative 10/29/21 18:15 Ur Amphetamines Screen Negative 10/29/21 18:15 U Benzodiazepines Scrn Negative 10/29/21 18:15 Urine Cocaine Screen Negative 10/29/21 18:15 U Marijuana (THC) Screen Negative 10/29/21 18:15 Drugs of Abuse Note Disclamer 10/29/21 18:15 Plasma/Serum Alcohol < 0.01 % (0-0.07) 10/29/21 15:10 Coronavirus (PCR) Negative (Negative) 10/30/21 Unknown Hepatitis A IgM Ab Non-reactive (NonReactive) 12/01/21 19:36 Hep Bs Antigen Non-reactive (Negative) 12/01/21 19:36 Hep B Core IgM Ab Non-reactive (NonReactive) 12/01/21 19:36 Hepatitis C Antibody Non-reactive (NonReactive) 12/01/21 19:36 Blood Type O POSITIVE 11/12/21 04:15 Antibody Screen Negative 11/12/21 04:15 Crossmatch See Detail 11/12/21 04:15 Microbiology: Microbiology 11/29/21 22:26 Peripheral/Venous Blood Culture - Preliminary NO GROWTH AFTER 4 DAYS Krishna/IV: Voiding Method Indwelling Catheter Active Medications - Current Medications Current Medications: Generic Name Dose Route Start Last Admin Trade Name Freq PRN Reason Stop Dose Admin Acetaminophen 650 mg 10/29/21 17:04 11/12/21 22:53 Acetaminophen 650 Mg Rect Supp [place] 650 mg Q6H PRN Administration Pain MILD(1-3)/Fever >100.5/NIEVES Acetaminophen 650 mg 11/19/21 16:35 12/02/21 18:20 Acetaminophen 325 Mg Tab PO 650 mg Q6HR PRN Administration PAIN Albumin Human 50 gm 12/02/21 11:00 12/02/21 11:55 Albumin Human 25% (25 Gm/100 Ml) Inj IV 50 gm ZACH PRN Administration Hypotension Alprazolam 0.25 mg 11/14/21 14:29 12/03/21 23:02 Alprazolam 0.25 Mg Tab PO 0.25 mg Q8H PRN Administration Anxiety Dextrose 0 ml 11/04/21 13:48 11/12/21 05:45 Dextrose 10% *Hypoglycemia IV 50 ml PRN PRN Administration Hypoglycemia Docusate Sodium 100 mg 11/18/21 15:00 12/04/21 09:02 Docusate Sodium 100 Mg Cap PO 100 mg BID RAMON Administration Famotidine 10 mg 11/06/21 10:00 12/04/21 09:02 Famotidine 10 Mg Tab PO 10 mg BID RAMON Administration Gabapentin 100 mg 11/28/21 14:00 12/04/21 06:18 Gabapentin 100 Mg Cap PO 100 mg Q8HR RAMON Administration Heparin Sodium (Porcine) 4,000 unit 03/10/22 07:50 12/02/21 17:22 Heparin 10,000 Units/10 Ml Vial 40 unit/kg (4300 unit) 4,000 unit IV Administration Q6H PRN Anti-Xa Assay < 0.1 units/ml Hydrophilic Ointment 1 applic 10/29/21 14:29 11/09/21 08:51 Lip Therapy Vaseline TP 1 applic Q2HR PRN Administration Dry Lips Heparin Sodium/Sodium Chloride 25,000 unit in 500 mls @ 30 mls/hr 11/28/21 17:00 12/03/21 21:47 Heparin/ 0.45% Nacl-25,000 Unit/500 Ml IV 2,050 units/hr TITR RAMON 41 mls/hr Administration Protocol 1,500 UNITS/HR Cefepime HCl 1 gm in 100 mls @ 200 mls/hr 12/01/21 10:00 12/03/21 21:35 Cefepime/Ns 1 Gm/100 Ml IV Infused Q24H REPLACED BY [facility] Infusion Protocol Sodium Chloride 100 mls @ 999 mls/hr 12/01/21 14:44 Nacl 0.9% IV ZACH PRN Hypotension Vasopressin 20 unit/ Sodium 101 mls @ 9.09 mls/hr 12/02/21 16:00 Chloride IV TITR REPLACED BY [facility] Protocol 0.03 UNITS/MIN Insulin Human Lispro 0 unit 11/25/21 22:00 12/04/21 08:52 Insulin Lispro 100 Unit/Ml SUB-Q Not Given ACHS REPLACED BY [facility] Protocol Lactulose 20 gm 11/18/21 14:43 11/29/21 21:20 Lactulose 20 Gm/30 Ml Oral Liqd PO 20 gm Q6H PRN Administration Constipation Melatonin 10 mg 11/22/21 17:31 11/27/21 21:32 Melatonin 5 Mg Tab PO 10 mg QHS PRN Administration Sleep Midodrine 10 mg 12/01/21 12:00 12/04/21 09:02 Midodrine 5 Mg Tab PO 10 mg TID@0800,1200,1600 RAMON Administration Morphine Sulfate 1 mg 11/28/21 15:00 12/03/21 21:43 Morphine 2 Mg/1 Ml Inj IV 1 mg Q4H PRN Administration Pain, Moderate (4-6) Multi-Ingred Cream/Lotion/Oil/Oint 1 applic 10/29/21 14:29 11/06/21 09:25 Mineral Oil/Petrolatum, White Ophth Oint 3.5 Gm OU 1 applic Q4HR PRN Administration Dry Eye(s) Oxycodone/Acetaminophen 1 tab 11/27/21 14:31 12/04/21 09:09 Oxycodone /Acetaminophen 5-325mg Tab PO 1 tab Q4H PRN Administration Pain, Moderate (4-6) Polyethylene Glycol 17 gm 11/20/21 12:47 11/25/21 08:30 Polyethylene Glycol 3350 17 Gm Powder PO 17 gm QDAY PRN Administration Constipation Senna/Docusate Sodium 1 tab 11/16/21 22:00 12/04/21 09:02 Sennosides/Docusate Sodium 8.6/50 Mg Tab PO 1 tab BID RAMON Administration Sodium Chloride 10 ml 10/29/21 22:00 12/04/21 09:03 Sodium Chloride 0.9% 10 Ml Flush Syringe IV 10 ml BID RAMON Administration Sodium Chloride 10 ml 10/29/21 17:04 Sodium Chloride 0.9% 10 Ml Flush Syringe IV PRN PRN LINE FLUSH Nutrition/Malnutrition Assess - Dietary Evaluation Nutrition/Malnutrition Findings: Nutrition Notes Start: 10/30/21 09:50 Freq: Status: Active Protocol: Document 12/02/21 17:02 YOVANY (Rec: 12/02/21 17:10 YOVANY [id number]) Nutrition Notes Initial or Follow up Reassessment Current Diagnosis Acute Kidney Injury,Sepsis, Hypertension Other Pertinent Diagnosis s/p cardiac arrest, anemia Current Diet Renal mech soft Labs/Tests Na 129 BUN 42 Cr 4.4 Phos 5.2 Pertinent Medications Vasopressin gtt Height 5 ft 10 in Weight 114.8 kg [place] Body Weight (kg) 68.18 BMI 36.3 Weight Status Obese Subjective/Other Information Pt transferred to ICU sec to hypotension. Worsening renal function; HD initiated yesterday. Pt reports poor appetite; observed numerous crackers on bedside table. Assisted pt with applesauce ( she ate 100%). Pt willing to try an ONS. She says she does not eat a lot anyway. She has consumed 25% of last 4 documented meals. Percent of energy/protein needs met: 32% energy 18% pro Burn Absent Trauma Absent Current % PO Poor (25-49%) #1 Nutrition Diagnosis Inadequate oral intake As Evidenced by Signs and Symptoms PO intake meeting <50% of energy and pro needs Diagnosis Progress(for reassessment Continues documentation) Is patient on ventilator? No Is Patient Ambulatory and/or Out of Bed No REE-([facility]-confined to bed) 2120.952 Kcal/Kg value to use for calculation 14 Approximate Energy Requirements Using 1607 kcal/Kg Calculation Used for Recommendations Kcal/kg Additional Notes Pro needs >1.2g/kg adjBW: > 110g/day Fluid needs 1-1.5L/day Nutrition Intervention Change Diet Order: Continue Renal mech soft diet Add Supplement/Snack (indicate name/kcal Nepro once daily (vanilla) /protein ) Provides kCal: 425 Provides Protein (gm) 19 Goal #1 PO intake of meals plus ONS to meet at least 75% energy and pro needs Follow-Up By: 12/05/21 Additional Comments F/U: intakes (meals, ONS), pressor support
--- NOTE | 2021-12-04 09:52 | Progress Note ---
Assessment and Plan Acute Renal Failure secondary to Ischemic ATN secondary to Sepsis, Cardiac arrest and Hypotension S/P Cardiac Arrest Acute Hypoxemic Respiratory Failure Acute DVT Sepsis CHF Anemia Hyperkalemia Hyponatremia Plan: no indication for HD today Anemia-KIKI as needed. Transfuse as needed Obtain daily weights Strict I/O's daily Renally dose medications Avoid nephrotoxic agents Continue to monitor renal function closely Assess dialysis needs daily Subjective Date of service: 12/04/21 Principal diagnosis: AHRF; Cardiac arrest; R. pneumothorax; pneumonia; AMS; DVT's; SIERRA; Obesity Interval history: was transferred back from ICU, blood pressure is stable Objective - Vital Signs Vital signs: Vital Signs - 12hr 12/03/21 12/04/21 12/04/21 22:54 00:18 03:08 Temperature 99.9 F H 99.3 F Pulse Rate 146 H 142 H Respiratory 16 18 Rate Blood Pressure 118/71 111/67 O2 Sat by Pulse 96 100 99 Oximetry 12/04/21 12/04/21 08:16 09:09 Temperature 98.6 F Pulse Rate 139 H Respiratory 18 18 Rate Blood Pressure 100/57 O2 Sat by Pulse 98 Oximetry - Lab 12/04/21 06:15 12/04/21 06:15 Most recent lab results ABG pH 7.450 pH Units (7.350-7.450) 12/01/21 Unknown ABG pCO2 38.0 mm Hg 12/01/21 Unknown ABG pO2 88.9 mm Hg (80.0-90.0) 12/01/21 Unknown ABG HCO3 25.8 mmol/L (20.0-26.0) 12/01/21 Unknown ABG O2 Saturation 97.2 % (95.0-99.0) 12/01/21 Unknown Calcium 8.8 mg/dL (8.4-10.2) 12/04/21 06:15 Phosphorus 5.20 mg/dL (2.5-4.5) H 12/02/21 03:22 Magnesium 1.60 mg/dL (1.7-2.3) L 11/19/21 14:38 Urine Creatinine 190.9 mg/dL (0.1-20.0) H 11/04/21 Unknown Urine Sodium 10 mmol/L 11/04/21 Unknown Urine Total Protein 172 mg/dL (5-11.8) H 11/04/21 Unknown Medications & Allergies - Medications Allergies/Adverse Reactions: Allergies No Known Allergies Allergy (Verified 10/29/21 14:01) Home Medications: Home Medications Medication Instructions Recorded Confirmed Last Taken Type Unobtainable 11/10/21 11/10/21 Unknown History Active Medications: Generic Name Dose Route Start Last Admin Trade Name Freq PRN Reason Stop Dose Admin Acetaminophen 650 mg 10/29/21 17:04 11/12/21 22:53 Acetaminophen 650 Mg Rect Supp [place] 650 mg Q6H PRN Administration Pain MILD(1-3)/Fever >100.5/NIEVES Acetaminophen 650 mg 11/19/21 16:35 12/02/21 18:20 Acetaminophen 325 Mg Tab PO 650 mg Q6HR PRN Administration PAIN Albumin Human 50 gm 12/02/21 11:00 12/02/21 11:55 Albumin Human 25% (25 Gm/100 Ml) Inj IV 50 gm ZACH PRN Administration Hypotension Alprazolam 0.25 mg 11/14/21 14:29 12/03/21 23:02 Alprazolam 0.25 Mg Tab PO 0.25 mg Q8H PRN Administration Anxiety Dextrose 0 ml 11/04/21 13:48 11/12/21 05:45 Dextrose 10% *Hypoglycemia IV 50 ml PRN PRN Administration Hypoglycemia Docusate Sodium 100 mg 11/18/21 15:00 12/04/21 09:02 Docusate Sodium 100 Mg Cap PO 100 mg BID RAMON Administration Famotidine 10 mg 11/06/21 10:00 12/04/21 09:02 Famotidine 10 Mg Tab PO 10 mg BID RAMON Administration Gabapentin 100 mg 11/28/21 14:00 12/04/21 06:18 Gabapentin 100 Mg Cap PO 100 mg Q8HR RAMON Administration Heparin Sodium (Porcine) 4,000 unit 12/01/21 07:50 12/02/21 17:22 Heparin 10,000 Units/10 Ml Vial 40 unit/kg (4300 unit) 4,000 unit IV Administration Q6H PRN Anti-Xa Assay < 0.1 units/ml Hydrophilic Ointment 1 applic 10/29/21 14:29 11/09/21 08:51 Lip Therapy Vaseline TP 1 applic Q2HR PRN Administration Dry Lips Heparin Sodium/Sodium Chloride 25,000 unit in 500 mls @ 30 mls/hr 11/28/21 17:00 12/03/21 21:47 Heparin/ 0.45% Nacl-25,000 Unit/500 Ml IV 2,050 units/hr TITR RAMON 41 mls/hr Administration Protocol 1,500 UNITS/HR Cefepime HCl 1 gm in 100 mls @ 200 mls/hr 12/01/21 10:00 12/03/21 21:35 Cefepime/Ns 1 Gm/100 Ml IV Infused Q24H [facility] Infusion Protocol Sodium Chloride 100 mls @ 999 mls/hr 12/01/21 14:44 Nacl 0.9% IV ZACH PRN Hypotension Vasopressin 20 unit/ Sodium 101 mls @ 9.09 mls/hr 12/02/21 16:00 Chloride IV TITR RAMON Protocol 0.03 UNITS/MIN Insulin Human Lispro 0 unit 11/25/21 22:00 12/04/21 08:52 Insulin Lispro 100 Unit/Ml SUB-Q Not Given ACHS [facility] Protocol Lactulose 20 gm 11/18/21 14:43 11/29/21 21:20 Lactulose 20 Gm/30 Ml Oral Liqd PO 20 gm Q6H PRN Administration Constipation Melatonin 10 mg 11/22/21 17:31 11/27/21 21:32 Melatonin 5 Mg Tab PO 10 mg QHS PRN Administration Sleep Midodrine 10 mg 12/01/21 12:00 12/04/21 09:02 Midodrine 5 Mg Tab PO 10 mg TID@0800,1200,1600 [facility] Administration Morphine Sulfate 1 mg 11/28/21 15:00 12/03/21 21:43 Morphine 2 Mg/1 Ml Inj IV 1 mg Q4H PRN Administration Pain, Moderate (4-6) Multi-Ingred Cream/Lotion/Oil/Oint 1 applic 10/29/21 14:29 11/06/21 09:25 Mineral Oil/Petrolatum, White Ophth Oint 3.5 Gm OU 1 applic Q4HR PRN Administration Dry Eye(s) Oxycodone/Acetaminophen 1 tab 11/27/21 14:31 12/04/21 09:09 Oxycodone /Acetaminophen 5-325mg Tab PO 1 tab Q4H PRN Administration Pain, Moderate (4-6) Polyethylene Glycol 17 gm 11/20/21 12:47 11/25/21 08:30 Polyethylene Glycol 3350 17 Gm Powder PO 17 gm QDAY PRN Administration Constipation Senna/Docusate Sodium 1 tab 11/16/21 22:00 12/04/21 09:02 Sennosides/Docusate Sodium 8.6/50 Mg Tab PO 1 tab BID RAMON Administration Sodium Chloride 10 ml 10/29/21 22:00 12/04/21 09:03 Sodium Chloride 0.9% 10 Ml Flush Syringe IV 10 ml BID RAMON Administration Sodium Chloride 10 ml 10/29/21 17:04 Sodium Chloride 0.9% 10 Ml Flush Syringe IV PRN PRN LINE FLUSH
[2021-12-04] MEDS: CEFEPIME/NS 1 GM/100 ML 1 GM/100 ML BAG IV SCH (13:32)
--- NOTE | 2021-12-04 16:45 | Progress Note ---
Assessment and Plan Acute hypoxemic respiratory failure on MVS Cardiac arrest with ROSC Acute DVT Right pneumothorax Shock (septic +/- cardiogenic) Possible aspiration pneumonia SIERRA Altered mental status/acute encephalopathy Elevated serum transaminases, likely shock liver Metabolic acidosis Obesity Retro-peritoneal Hematoma Leukocytosis Hypokalemia Lactic acidosis - continue HD/UF for toxin and volume clearance - continue Midodrine for BP support - continue anticoagulation while following H&H closely - continue BIPAP scheduled qhs with prn daytime use - continue care as below otherwise; - continue to wean supplemental oxygen for target O2 sat's > 90% acutely - aspiration precautions - continue bronchodilators with pulmonary hygiene per RT - continue accuchecks with glycemic control per SSI (While critically ill target blood glucose of 140-180 mg/dL; avoid hypoglycemia) - avoid nephrotoxins, renally dose all medications - continue to avoid benzodiazepine's, reduce the possibility of delirium - AB's per ID rec's (Cefepime) - prn analgesia per pain score - Maintenance of sleep-wake cycle, avoid delirium - G.I. & VTE prophylaxis - PT/OT/ROM exercises - continue mobility protocols for pressure ulcer prophylaxis - Monitor hemodynamics closely - continue other care per attending / other consultants - discharge planning ongoing concurrently COVID SPECIFIC INTERVENTIONS - COVID-19 PCR negative .... Re-evaluate in am & prn Subjective Date of service: 12/04/21 Principal diagnosis: AHRF; Cardiac arrest; R. pneumothorax; pneumonia; AMS; DVT's; SIERRA; Obesity Interval history: Patient is seen today for: Acute hypoxemic respiratory failure; Cardiac arrest with ROSC; Right pneumothorax; pneumonia; AMS; bilateral DVT's; SIERRA; Obesity Seen and examined at bedside; 24hour events reviewed; nursing and respiratory care staff consulted; no adverse overnight events reported to me; resting in bed; remains on supplemental oxygen; denies acute chest pains or palpitations; afebrile; no gross bleeding Objective Vital Signs - 12hr 12/04/21 12/04/21 12/04/21 08:16 09:09 10:00 Temperature 98.6 F Pulse Rate 139 H Pulse Rate [ 119 H From Monitor] Pulse Rate [ 110 H Right Radial] Respiratory 18 18 Rate Blood Pressure 100/57 O2 Sat by Pulse 98 98 Oximetry 12/04/21 10:09 Temperature Pulse Rate Pulse Rate [ From Monitor] Pulse Rate [ Right Radial] Respiratory 18 Rate Blood Pressure O2 Sat by Pulse Oximetry Constitutional: no acute distress, alert, other (elderly obese female with mildly increased respiratory effort at rest ) Eyes: non-icteric ENT: oropharynx moist Neck: supple, no lymphadenopathy, no JVD, other (large circumference) Effort: mildly labored Ascultation: Bilateral: diminished breath sounds, rhonchi (bases) Percussion: Bilateral: not dull Cardiovascular: regular rate and rhythm, other (no R/M) Gastrointestinal: normoactive bowel sounds, soft, non-tender, other (obese) Integumentary: normal, other (Left flank ecchymosis with induration) Extremities: no cyanosis, pulses normal, no ischemia or petechiae, edema (2+) Neurologic: normal mental status, non-focal exam (grossly), pupils equal and round, motor strength normal and (weak) Psychiatric: mood appropriate, affect normal CBC and BMP: 12/13/21 06:19 12/12/21 05:15 ABG, PT/INR, D-dimer: ABG ABG pH 7.450 pH Units (7.350-7.450) 12/01/21 Unknown ABG pCO2 38.0 mm Hg 12/01/21 Unknown ABG pO2 88.9 mm Hg (80.0-90.0) 12/01/21 Unknown ABG O2 Saturation 97.2 % (95.0-99.0) 12/01/21 Unknown PT/INR, D-dimer PT 17.2 Sec. (12.2-14.9) H 10/30/21 16:30 INR 1.27 (0.87-1.13) H 10/30/21 16:30 D-Dimer > 03311 ng/mlDDU (0-234) H 10/30/21 Unknown Abnormal lab findings: Abnormal Labs 10/29/21 10/29/21 10/29/21 15:10 15:10 15:10 WBC 27.8 H RBC Hgb Hct MCH 27 L RDW Plt Count Lymph % (Auto) [place] % (Auto) Lymph # (Auto) [place] # (Auto) Seg Neutrophils % Seg Neuts % (Manual) 78.0 H Lymphocytes % (Manual) 10.0 L Monocytes % (Manual) Nucleated RBC % Seg Neutrophils # Seg Neutrophils # Man 21.7 H Monocytes # (Manual) 1.4 H Eosinophils # (Manual) Basophils # (Manual) PT INR APTT D-Dimer Heparin Anti-Xa Level ABG pH ABG pO2 ABG HCO3 ABG O2 Saturation ABG Base Excess ABG Hemoglobin Oxyhemoglobin Sodium Potassium Chloride Carbon Dioxide BUN Creatinine Glucose POC Glucose Hemoglobin A1c Lactic Acid 6.80 H* Calcium Phosphorus Magnesium Ferritin AST ALT Alkaline Phosphatase Lactate Dehydrogenase Troponin T 0.089 H C-Reactive Protein Total Protein Albumin LDL Cholesterol Direct Urine Creatinine Urine Total Protein Salicylates Acetaminophen Crossmatch 10/29/21 10/29/21 10/29/21 15:10 15:10 15:10 WBC RBC Hgb Hct MCH RDW Plt Count Lymph % (Auto) [place] % (Auto) Lymph # (Auto) [place] # (Auto) Seg Neutrophils % Seg Neuts % (Manual) Lymphocytes % (Manual) Monocytes % (Manual) Nucleated RBC % Seg Neutrophils # Seg Neutrophils # Man Monocytes # (Manual) Eosinophils # (Manual) Basophils # (Manual) PT INR APTT D-Dimer Heparin Anti-Xa Level ABG pH ABG pO2 ABG HCO3 ABG O2 Saturation ABG Base Excess ABG Hemoglobin Oxyhemoglobin Sodium 136 L Potassium 2.8 L* Chloride 93.4 L Carbon Dioxide 20 L BUN Creatinine Glucose 330 H POC Glucose Hemoglobin A1c Lactic Acid Calcium Phosphorus Magnesium Ferritin AST 1013 H ALT 1289 H Alkaline Phosphatase 246 H Lactate Dehydrogenase Troponin T C-Reactive Protein Total Protein Albumin LDL Cholesterol Direct Urine Creatinine Urine Total Protein Salicylates < 0.3 L Acetaminophen 5.0 L Crossmatch 10/29/21 10/29/21 10/29/21 15:11 16:01 19:29 WBC RBC Hgb Hct MCH RDW Plt Count Lymph % (Auto) [place] % (Auto) Lymph # (Auto) [place] # (Auto) Seg Neutrophils % Seg Neuts % (Manual) Lymphocytes % (Manual) Monocytes % (Manual) Nucleated RBC % Seg Neutrophils # Seg Neutrophils # Man Monocytes # (Manual) Eosinophils # (Manual) Basophils # (Manual) PT INR APTT D-Dimer Heparin Anti-Xa Level ABG pH 7.307 L ABG pO2 64.1 L ABG HCO3 ABG O2 Saturation 90.8 L ABG Base Excess -2.9 L ABG Hemoglobin Oxyhemoglobin 89.3 L Sodium Potassium Chloride Carbon Dioxide BUN Creatinine Glucose POC Glucose Hemoglobin A1c Lactic Acid 2.60 H* Calcium Phosphorus Magnesium 2.90 H Ferritin AST ALT Alkaline Phosphatase Lactate Dehydrogenase Troponin T C-Reactive Protein Total Protein Albumin LDL Cholesterol Direct Urine Creatinine Urine Total Protein Salicylates Acetaminophen Crossmatch 10/29/21 10/29/21 10/30/21 19:40 22:34 04:30 WBC 16.2 H RBC Hgb Hct MCH 26 L RDW 15.5 H Plt Count Lymph % (Auto) 6.2 L [place] % (Auto) Lymph # (Auto) 1.0 L [place] # (Auto) 0.9 H Seg Neutrophils % 88.1 H Seg Neuts % (Manual) Lymphocytes % (Manual) Monocytes % (Manual) Nucleated RBC % Seg Neutrophils # 14.2 H Seg Neutrophils # Man Monocytes # (Manual) Eosinophils # (Manual) Basophils # (Manual) PT INR APTT D-Dimer Heparin Anti-Xa Level ABG pH ABG pO2 ABG HCO3 ABG O2 Saturation ABG Base Excess ABG Hemoglobin Oxyhemoglobin Sodium Potassium Chloride Carbon Dioxide BUN Creatinine Glucose POC Glucose Hemoglobin A1c Lactic Acid Calcium Phosphorus Magnesium Ferritin AST ALT Alkaline Phosphatase Lactate Dehydrogenase Troponin T 1.950 H* D 1.150 H* D C-Reactive Protein Total Protein Albumin LDL Cholesterol Direct 43 L Urine Creatinine Urine Total Protein Salicylates Acetaminophen Crossmatch 10/30/21 10/30/21 10/30/21 04:30 04:35 05:45 WBC RBC Hgb Hct MCH RDW Plt Count Lymph % (Auto) [place] % (Auto) Lymph # (Auto) [place] # (Auto) Seg Neutrophils % Seg Neuts % (Manual) Lymphocytes % (Manual) Monocytes % (Manual) Nucleated RBC % Seg Neutrophils # Seg Neutrophils # Man Monocytes # (Manual) Eosinophils # (Manual) Basophils # (Manual) PT INR APTT D-Dimer Heparin Anti-Xa Level ABG pH ABG pO2 69.5 L ABG HCO3 ABG O2 Saturation ABG Base Excess -2.7 L ABG Hemoglobin Oxyhemoglobin 94.7 L Sodium Potassium Chloride Carbon Dioxide 21 L BUN Creatinine Glucose 159 H POC Glucose 151 H Hemoglobin A1c Lactic Acid Calcium 7.9 L D Phosphorus Magnesium Ferritin AST 461 H ALT 686 H Alkaline Phosphatase 130 H Lactate Dehydrogenase Troponin T C-Reactive Protein Total Protein 5.6 L D Albumin 3.2 L LDL Cholesterol Direct Urine Creatinine Urine Total Protein Salicylates Acetaminophen Crossmatch 10/30/21 10/30/21 10/30/21 11:24 15:59 16:30 WBC RBC Hgb Hct MCH RDW Plt Count Lymph % (Auto) [place] % (Auto) Lymph # (Auto) [place] # (Auto) Seg Neutrophils % Seg Neuts % (Manual) Lymphocytes % (Manual) Monocytes % (Manual) Nucleated RBC % Seg Neutrophils # Seg Neutrophils # Man Monocytes # (Manual) Eosinophils # (Manual) Basophils # (Manual) PT 17.2 H INR 1.27 H APTT 44.4 H D-Dimer Heparin Anti-Xa Level ABG pH ABG pO2 ABG HCO3 ABG O2 Saturation ABG Base Excess ABG Hemoglobin Oxyhemoglobin Sodium Potassium Chloride Carbon Dioxide BUN Creatinine Glucose POC Glucose 153 H 109 H Hemoglobin A1c Lactic Acid Calcium Phosphorus Magnesium Ferritin AST ALT Alkaline Phosphatase Lactate Dehydrogenase Troponin T C-Reactive Protein Total Protein Albumin LDL Cholesterol Direct Urine Creatinine Urine Total Protein Salicylates Acetaminophen Crossmatch 10/30/21 10/30/21 10/30/21 23:00 Unknown Unknown WBC RBC Hgb Hct MCH RDW Plt Count Lymph % (Auto) [place] % (Auto) Lymph # (Auto) [place] # (Auto) Seg Neutrophils % Seg Neuts % (Manual) Lymphocytes % (Manual) Monocytes % (Manual) Nucleated RBC % Seg Neutrophils # Seg Neutrophils # Man Monocytes # (Manual) Eosinophils # (Manual) Basophils # (Manual) PT INR APTT D-Dimer > 78312 H Heparin Anti-Xa Level 0.82 H ABG pH ABG pO2 ABG HCO3 ABG O2 Saturation ABG Base Excess ABG Hemoglobin Oxyhemoglobin Sodium Potassium Chloride Carbon Dioxide BUN Creatinine Glucose POC Glucose Hemoglobin A1c Lactic Acid Calcium Phosphorus Magnesium Ferritin 208.4 H AST ALT Alkaline Phosphatase Lactate Dehydrogenase Troponin T C-Reactive Protein Total Protein Albumin LDL Cholesterol Direct Urine Creatinine Urine Total Protein Salicylates Acetaminophen Crossmatch 10/30/21 10/31/21 10/31/21 Unknown 04:30 04:30 WBC 14.4 H RBC Hgb Hct MCH 26 L RDW Plt Count Lymph % (Auto) [place] % (Auto) Lymph # (Auto) [place] # (Auto) Seg Neutrophils % Seg Neuts % (Manual) Lymphocytes % (Manual) Monocytes % (Manual) Nucleated RBC % Seg Neutrophils # Seg Neutrophils # Man Monocytes # (Manual) Eosinophils # (Manual) Basophils # (Manual) PT INR APTT D-Dimer Heparin Anti-Xa Level ABG pH ABG pO2 ABG HCO3 ABG O2 Saturation ABG Base Excess ABG Hemoglobin Oxyhemoglobin Sodium Potassium 3.5 L Chloride 107.5 H Carbon Dioxide 20 L BUN 28 H Creatinine 1.7 H Glucose 113 H POC Glucose Hemoglobin A1c Lactic Acid Calcium 7.9 L Phosphorus Magnesium Ferritin AST ALT Alkaline Phosphatase Lactate Dehydrogenase 469 H Troponin T C-Reactive Protein 13.40 H Total Protein Albumin LDL Cholesterol Direct Urine Creatinine Urine Total Protein Salicylates Acetaminophen Crossmatch 10/31/21 10/31/21 10/31/21 04:30 05:11 15:30 WBC RBC Hgb Hct MCH RDW Plt Count Lymph % (Auto) [place] % (Auto) Lymph # (Auto) [place] # (Auto) Seg Neutrophils % Seg Neuts % (Manual) Lymphocytes % (Manual) Monocytes % (Manual) Nucleated RBC % Seg Neutrophils # Seg Neutrophils # Man Monocytes # (Manual) Eosinophils # (Manual) Basophils # (Manual) PT INR APTT D-Dimer Heparin Anti-Xa Level ABG pH 7.222 L ABG pO2 61.5 L ABG HCO3 ABG O2 Saturation 86.2 L ABG Base Excess -6.3 L ABG Hemoglobin 11.2 L Oxyhemoglobin 84.5 L Sodium Potassium Chloride Carbon Dioxide BUN Creatinine Glucose POC Glucose 106 H Hemoglobin A1c 6.7 H Lactic Acid Calcium Phosphorus Magnesium Ferritin AST ALT Alkaline Phosphatase Lactate Dehydrogenase Troponin T C-Reactive Protein Total Protein Albumin LDL Cholesterol Direct Urine Creatinine Urine Total Protein Salicylates Acetaminophen Crossmatch 10/31/21 10/31/21 10/31/21 16:07 16:35 17:45 WBC RBC Hgb Hct MCH RDW Plt Count Lymph % (Auto) [place] % (Auto) Lymph # (Auto) [place] # (Auto) Seg Neutrophils % Seg Neuts % (Manual) Lymphocytes % (Manual) Monocytes % (Manual) Nucleated RBC % Seg Neutrophils # Seg Neutrophils # Man Monocytes # (Manual) Eosinophils # (Manual) Basophils # (Manual) PT INR APTT D-Dimer Heparin Anti-Xa Level ABG pH 7.267 L ABG pO2 58.3 L ABG HCO3 ABG O2 Saturation 88.3 L ABG Base Excess -5.9 L ABG Hemoglobin 10.1 L Oxyhemoglobin 86.5 L Sodium Potassium Chloride Carbon Dioxide BUN Creatinine Glucose POC Glucose 115 H Hemoglobin A1c Lactic Acid Calcium Phosphorus Magnesium Ferritin AST ALT Alkaline Phosphatase Lactate Dehydrogenase Troponin T C-Reactive Protein Total Protein Albumin LDL Cholesterol Direct Urine Creatinine 383.6 H Urine Total Protein Salicylates Acetaminophen Crossmatch 11/01/21 11/01/21 11/01/21 00:06 05:08 06:00 WBC 12.6 H RBC 3.43 L Hgb 8.9 L Hct 28.7 L MCH 26 L RDW 15.7 H Plt Count 130 L Lymph % (Auto) [place] % (Auto) Lymph # (Auto) [place] # (Auto) Seg Neutrophils % Seg Neuts % (Manual) Lymphocytes % (Manual) Monocytes % (Manual) Nucleated RBC % Seg Neutrophils # Seg Neutrophils # Man Monocytes # (Manual) Eosinophils # (Manual) Basophils # (Manual) PT INR APTT D-Dimer Heparin Anti-Xa Level ABG pH ABG pO2 ABG HCO3 ABG O2 Saturation ABG Base Excess ABG Hemoglobin Oxyhemoglobin Sodium Potassium Chloride Carbon Dioxide BUN Creatinine Glucose POC Glucose 114 H 120 H Hemoglobin A1c Lactic Acid Calcium Phosphorus Magnesium Ferritin AST ALT Alkaline Phosphatase Lactate Dehydrogenase Troponin T C-Reactive Protein Total Protein Albumin LDL Cholesterol Direct Urine Creatinine Urine Total Protein Salicylates Acetaminophen Crossmatch 11/01/21 11/01/21 11/01/21 06:00 11:43 14:00 WBC RBC Hgb Hct MCH RDW Plt Count Lymph % (Auto) [place] % (Auto) Lymph # (Auto) [place] # (Auto) Seg Neutrophils % Seg Neuts % (Manual) Lymphocytes % (Manual) Monocytes % (Manual) Nucleated RBC % Seg Neutrophils # Seg Neutrophils # Man Monocytes # (Manual) Eosinophils # (Manual) Basophils # (Manual) PT INR APTT D-Dimer Heparin Anti-Xa Level ABG pH 7.349 L ABG pO2 75.6 L ABG HCO3 ABG O2 Saturation ABG Base Excess -3.9 L ABG Hemoglobin 9.8 L Oxyhemoglobin 93.5 L Sodium Potassium Chloride 114.1 H Carbon Dioxide 20 L BUN 33 H Creatinine Glucose 131 H POC Glucose 151 H Hemoglobin A1c Lactic Acid Calcium 7.7 L Phosphorus Magnesium Ferritin AST 79 H ALT 259 H Alkaline Phosphatase Lactate Dehydrogenase Troponin T C-Reactive Protein Total Protein 5.5 L Albumin 2.7 L LDL Cholesterol Direct Urine Creatinine Urine Total Protein Salicylates Acetaminophen Crossmatch 11/01/21 11/01/21 11/02/21 16:45 22:55 05:12 WBC RBC Hgb Hct MCH RDW Plt Count Lymph % (Auto) [place] % (Auto) Lymph # (Auto) [place] # (Auto) Seg Neutrophils % Seg Neuts % (Manual) Lymphocytes % (Manual) Monocytes % (Manual) Nucleated RBC % Seg Neutrophils # Seg Neutrophils # Man Monocytes # (Manual) Eosinophils # (Manual) Basophils # (Manual) PT INR APTT D-Dimer Heparin Anti-Xa Level ABG pH ABG pO2 ABG HCO3 ABG O2 Saturation ABG Base Excess ABG Hemoglobin Oxyhemoglobin Sodium Potassium Chloride Carbon Dioxide BUN Creatinine Glucose POC Glucose 119 H 129 H 140 H Hemoglobin A1c Lactic Acid Calcium Phosphorus Magnesium Ferritin AST ALT Alkaline Phosphatase Lactate Dehydrogenase Troponin T C-Reactive Protein Total Protein Albumin LDL Cholesterol Direct Urine Creatinine Urine Total Protein Salicylates Acetaminophen Crossmatch 11/02/21 11/02/21 11/02/21 05:35 05:35 09:35 WBC 13.5 H RBC 3.60 L Hgb 9.7 L Hct MCH 27 L RDW 15.7 H Plt Count Lymph % (Auto) [place] % (Auto) Lymph # (Auto) [place] # (Auto) Seg Neutrophils % Seg Neuts % (Manual) Lymphocytes % (Manual) Monocytes % (Manual) Nucleated RBC % Seg Neutrophils # Seg Neutrophils # Man Monocytes # (Manual) Eosinophils # (Manual) Basophils # (Manual) PT INR APTT D-Dimer Heparin Anti-Xa Level ABG pH 7.208 L ABG pO2 75.9 L ABG HCO3 ABG O2 Saturation 93.6 L ABG Base Excess -4.3 L ABG Hemoglobin 9.1 L Oxyhemoglobin 91.6 L Sodium Potassium 5.2 H D Chloride 112.6 H Carbon Dioxide BUN 32 H Creatinine Glucose 152 H POC Glucose Hemoglobin A1c Lactic Acid Calcium 8.2 L Phosphorus Magnesium 2.70 H Ferritin AST ALT Alkaline Phosphatase Lactate Dehydrogenase Troponin T C-Reactive Protein Total Protein Albumin LDL Cholesterol Direct Urine Creatinine Urine Total Protein Salicylates Acetaminophen Crossmatch 11/02/21 11/02/21 11/02/21 11:44 17:13 23:43 WBC RBC Hgb Hct MCH RDW Plt Count Lymph % (Auto) [place] % (Auto) Lymph # (Auto) [place] # (Auto) Seg Neutrophils % Seg Neuts % (Manual) Lymphocytes % (Manual) Monocytes % (Manual) Nucleated RBC % Seg Neutrophils # Seg Neutrophils # Man Monocytes # (Manual) Eosinophils # (Manual) Basophils # (Manual) PT INR APTT D-Dimer Heparin Anti-Xa Level ABG pH ABG pO2 ABG HCO3 ABG O2 Saturation ABG Base Excess ABG Hemoglobin Oxyhemoglobin Sodium Potassium Chloride Carbon Dioxide BUN Creatinine Glucose POC Glucose 173 H 148 H 137 H Hemoglobin A1c Lactic Acid Calcium Phosphorus Magnesium Ferritin AST ALT Alkaline Phosphatase Lactate Dehydrogenase Troponin T C-Reactive Protein Total Protein Albumin LDL Cholesterol Direct Urine Creatinine Urine Total Protein Salicylates Acetaminophen Crossmatch 11/03/21 11/03/21 11/03/21 04:59 06:00 06:00 WBC RBC 3.43 L Hgb 9.1 L Hct 29.0 L MCH 26 L RDW 16.4 H Plt Count Lymph % (Auto) [place] % (Auto) Lymph # (Auto) [place] # (Auto) Seg Neutrophils % Seg Neuts % (Manual) Lymphocytes % (Manual) Monocytes % (Manual) Nucleated RBC % Seg Neutrophils # Seg Neutrophils # Man Monocytes # (Manual) Eosinophils # (Manual) Basophils # (Manual) PT INR APTT D-Dimer Heparin Anti-Xa Level 0.17 L ABG pH ABG pO2 ABG HCO3 ABG O2 Saturation ABG Base Excess ABG Hemoglobin Oxyhemoglobin Sodium Potassium Chloride Carbon Dioxide BUN Creatinine Glucose POC Glucose 167 H Hemoglobin A1c Lactic Acid Calcium Phosphorus Magnesium Ferritin AST ALT Alkaline Phosphatase Lactate Dehydrogenase Troponin T C-Reactive Protein Total Protein Albumin LDL Cholesterol Direct Urine Creatinine Urine Total Protein Salicylates Acetaminophen Crossmatch 11/03/21 11/03/21 11/03/21 06:00 09:20 11:58 WBC RBC Hgb Hct MCH RDW Plt Count Lymph % (Auto) [place] % (Auto) Lymph # (Auto) [place] # (Auto) Seg Neutrophils % Seg Neuts % (Manual) Lymphocytes % (Manual) Monocytes % (Manual) Nucleated RBC % Seg Neutrophils # Seg Neutrophils # Man Monocytes # (Manual) Eosinophils # (Manual) Basophils # (Manual) PT INR APTT D-Dimer Heparin Anti-Xa Level ABG pH 7.274 L ABG pO2 75.6 L ABG HCO3 ABG O2 Saturation 94.9 L ABG Base Excess -2.5 L ABG Hemoglobin 9.3 L Oxyhemoglobin 92.9 L Sodium 149 H Potassium Chloride 117.5 H Carbon Dioxide BUN 32 H Creatinine Glucose 173 H POC Glucose 192 H Hemoglobin A1c Lactic Acid Calcium 8.1 L Phosphorus Magnesium Ferritin AST ALT Alkaline Phosphatase Lactate Dehydrogenase Troponin T C-Reactive Protein Total Protein Albumin LDL Cholesterol Direct Urine Creatinine Urine Total Protein Salicylates Acetaminophen Crossmatch 11/03/21 11/03/21 11/04/21 18:22 Unknown 00:09 WBC RBC Hgb Hct MCH RDW Plt Count Lymph % (Auto) [place] % (Auto) Lymph # (Auto) [place] # (Auto) Seg Neutrophils % Seg Neuts % (Manual) Lymphocytes % (Manual) Monocytes % (Manual) Nucleated RBC % Seg Neutrophils # Seg Neutrophils # Man Monocytes # (Manual) Eosinophils # (Manual) Basophils # (Manual) PT INR APTT D-Dimer Heparin Anti-Xa Level 0.29 L ABG pH ABG pO2 ABG HCO3 ABG O2 Saturation ABG Base Excess ABG Hemoglobin Oxyhemoglobin Sodium Potassium Chloride Carbon Dioxide BUN Creatinine Glucose POC Glucose 178 H 221 H Hemoglobin A1c Lactic Acid Calcium Phosphorus Magnesium Ferritin AST ALT Alkaline Phosphatase Lactate Dehydrogenase Troponin T C-Reactive Protein Total Protein Albumin LDL Cholesterol Direct Urine Creatinine Urine Total Protein Salicylates Acetaminophen Crossmatch 11/04/21 11/04/21 11/04/21 05:09 09:40 09:40 WBC 16.8 H RBC Hgb Hct MCH 27 L RDW 16.5 H Plt Count Lymph % (Auto) [place] % (Auto) Lymph # (Auto) [place] # (Auto) Seg Neutrophils % Seg Neuts % (Manual) Lymphocytes % (Manual) Monocytes % (Manual) Nucleated RBC % Seg Neutrophils # Seg Neutrophils # Man Monocytes # (Manual) Eosinophils # (Manual) Basophils # (Manual) PT INR APTT D-Dimer Heparin Anti-Xa Level ABG pH ABG pO2 ABG HCO3 ABG O2 Saturation ABG Base Excess ABG Hemoglobin Oxyhemoglobin Sodium Potassium 5.9 H Chloride 108.5 H Carbon Dioxide BUN 54 H Creatinine 1.8 H Glucose 198 H POC Glucose 182 H Hemoglobin A1c Lactic Acid Calcium Phosphorus Magnesium 3.00 H Ferritin AST ALT Alkaline Phosphatase Lactate Dehydrogenase Troponin T C-Reactive Protein Total Protein Albumin LDL Cholesterol Direct Urine Creatinine Urine Total Protein Salicylates Acetaminophen Crossmatch 11/04/21 11/04/21 11/04/21 12:13 13:34 14:05 WBC RBC Hgb Hct MCH RDW Plt Count Lymph % (Auto) [place] % (Auto) Lymph # (Auto) [place] # (Auto) Seg Neutrophils % Seg Neuts % (Manual) Lymphocytes % (Manual) Monocytes % (Manual) Nucleated RBC % Seg Neutrophils # Seg Neutrophils # Man Monocytes # (Manual) Eosinophils # (Manual) Basophils # (Manual) PT INR APTT D-Dimer Heparin Anti-Xa Level ABG pH 7.223 L ABG pO2 71.3 L ABG HCO3 ABG O2 Saturation 92.8 L ABG Base Excess ABG Hemoglobin 8.2 L Oxyhemoglobin 91.0 L Sodium Potassium Chloride Carbon Dioxide BUN Creatinine Glucose POC Glucose 184 H Hemoglobin A1c Lactic Acid Calcium Phosphorus Magnesium Ferritin AST ALT Alkaline Phosphatase Lactate Dehydrogenase Troponin T C-Reactive Protein Total Protein Albumin LDL Cholesterol Direct Urine Creatinine 184.6 H Urine Total Protein Salicylates Acetaminophen Crossmatch 11/04/21 11/04/21 11/05/21 18:02 Unknown 00:07 WBC RBC Hgb Hct MCH RDW Plt Count Lymph % (Auto) [place] % (Auto) Lymph # (Auto) [place] # (Auto) Seg Neutrophils % Seg Neuts % (Manual) Lymphocytes % (Manual) Monocytes % (Manual) Nucleated RBC % Seg Neutrophils # Seg Neutrophils # Man Monocytes # (Manual) Eosinophils # (Manual) Basophils # (Manual) PT INR APTT D-Dimer Heparin Anti-Xa Level ABG pH ABG pO2 ABG HCO3 ABG O2 Saturation ABG Base Excess ABG Hemoglobin Oxyhemoglobin Sodium Potassium Chloride Carbon Dioxide BUN Creatinine Glucose POC Glucose 262 H 259 H Hemoglobin A1c Lactic Acid Calcium Phosphorus Magnesium Ferritin AST ALT Alkaline Phosphatase Lactate Dehydrogenase Troponin T C-Reactive Protein Total Protein Albumin LDL Cholesterol Direct Urine Creatinine 190.9 H Urine Total Protein 172 H Salicylates Acetaminophen Crossmatch 11/05/21 11/05/21 11/05/21 04:20 04:20 05:30 WBC 17.9 H RBC 3.64 L Hgb 9.7 L Hct MCH 27 L RDW 16.4 H Plt Count Lymph % (Auto) [place] % (Auto) Lymph # (Auto) [place] # (Auto) Seg Neutrophils % Seg Neuts % (Manual) Lymphocytes % (Manual) Monocytes % (Manual) Nucleated RBC % Seg Neutrophils # Seg Neutrophils # Man Monocytes # (Manual) Eosinophils # (Manual) Basophils # (Manual) PT INR APTT D-Dimer Heparin Anti-Xa Level ABG pH ABG pO2 ABG HCO3 ABG O2 Saturation ABG Base Excess ABG Hemoglobin Oxyhemoglobin Sodium Potassium 5.6 H Chloride 108.4 H Carbon Dioxide BUN 71 H Creatinine 1.9 H Glucose 270 H POC Glucose 283 H Hemoglobin A1c Lactic Acid Calcium Phosphorus Magnesium Ferritin AST ALT Alkaline Phosphatase Lactate Dehydrogenase Troponin T C-Reactive Protein Total Protein Albumin LDL Cholesterol Direct Urine Creatinine Urine Total Protein Salicylates Acetaminophen Crossmatch 11/05/21 11/05/21 11/05/21 10:05 12:10 15:29 WBC RBC Hgb Hct MCH RDW Plt Count Lymph % (Auto) [place] % (Auto) Lymph # (Auto) [place] # (Auto) Seg Neutrophils % Seg Neuts % (Manual) Lymphocytes % (Manual) Monocytes % (Manual) Nucleated RBC % Seg Neutrophils # Seg Neutrophils # Man Monocytes # (Manual) Eosinophils # (Manual) Basophils # (Manual) PT INR APTT D-Dimer Heparin Anti-Xa Level ABG pH 7.248 L ABG pO2 73.7 L ABG HCO3 26.2 H ABG O2 Saturation 93.1 L ABG Base Excess ABG Hemoglobin 8.9 L Oxyhemoglobin 91.4 L Sodium Potassium Chloride Carbon Dioxide BUN Creatinine Glucose POC Glucose 225 H 199 H Hemoglobin A1c Lactic Acid Calcium Phosphorus Magnesium Ferritin AST ALT Alkaline Phosphatase Lactate Dehydrogenase Troponin T C-Reactive Protein Total Protein Albumin LDL Cholesterol Direct Urine Creatinine Urine Total Protein Salicylates Acetaminophen Crossmatch 11/05/21 11/05/21 11/05/21 15:51 17:32 17:40 WBC RBC Hgb Hct MCH RDW Plt Count Lymph % (Auto) [place] % (Auto) Lymph # (Auto) [place] # (Auto) Seg Neutrophils % Seg Neuts % (Manual) Lymphocytes % (Manual) Monocytes % (Manual) Nucleated RBC % Seg Neutrophils # Seg Neutrophils # Man Monocytes # (Manual) Eosinophils # (Manual) Basophils # (Manual) PT INR APTT D-Dimer Heparin Anti-Xa Level ABG pH ABG pO2 ABG HCO3 ABG O2 Saturation ABG Base Excess ABG Hemoglobin Oxyhemoglobin Sodium Potassium 5.2 H Chloride 107.8 H Carbon Dioxide BUN 79 H Creatinine 1.9 H Glucose 204 H POC Glucose 278 H 197 H Hemoglobin A1c Lactic Acid Calcium Phosphorus Magnesium Ferritin AST ALT Alkaline Phosphatase Lactate Dehydrogenase Troponin T C-Reactive Protein Total Protein Albumin LDL Cholesterol Direct Urine Creatinine Urine Total Protein Salicylates Acetaminophen Crossmatch 11/05/21 11/05/21 11/05/21 21:25 22:22 23:43 WBC RBC Hgb Hct MCH RDW Plt Count Lymph % (Auto) [place] % (Auto) Lymph # (Auto) [place] # (Auto) Seg Neutrophils % Seg Neuts % (Manual) Lymphocytes % (Manual) Monocytes % (Manual) Nucleated RBC % Seg Neutrophils # Seg Neutrophils # Man Monocytes # (Manual) Eosinophils # (Manual) Basophils # (Manual) PT INR APTT D-Dimer Heparin Anti-Xa Level ABG pH ABG pO2 ABG HCO3 ABG O2 Saturation ABG Base Excess ABG Hemoglobin Oxyhemoglobin Sodium Potassium 5.3 H Chloride 109.2 H Carbon Dioxide BUN 81 H Creatinine 2.0 H Glucose 195 H POC Glucose 180 H 203 H Hemoglobin A1c Lactic Acid Calcium Phosphorus Magnesium Ferritin AST ALT Alkaline Phosphatase Lactate Dehydrogenase Troponin T C-Reactive Protein Total Protein Albumin LDL Cholesterol Direct Urine Creatinine Urine Total Protein Salicylates Acetaminophen Crossmatch 11/05/21 11/06/21 11/06/21 Unknown 02:35 05:09 WBC RBC Hgb Hct MCH RDW Plt Count Lymph % (Auto) [place] % (Auto) Lymph # (Auto) [place] # (Auto) Seg Neutrophils % Seg Neuts % (Manual) Lymphocytes % (Manual) Monocytes % (Manual) Nucleated RBC % Seg Neutrophils # Seg Neutrophils # Man Monocytes # (Manual) Eosinophils # (Manual) Basophils # (Manual) PT INR APTT D-Dimer Heparin Anti-Xa Level ABG pH ABG pO2 ABG HCO3 ABG O2 Saturation ABG Base Excess ABG Hemoglobin Oxyhemoglobin Sodium 146 H Potassium 6.0 H Chloride 108.1 H 107.1 H Carbon Dioxide 21 L BUN 80 H 84 H Creatinine 2.0 H 2.0 H Glucose 238 H 235 H POC Glucose 215 H Hemoglobin A1c Lactic Acid Calcium Phosphorus Magnesium 2.80 H Ferritin AST ALT 77 H Alkaline Phosphatase Lactate Dehydrogenase Troponin T C-Reactive Protein Total Protein Albumin 3.0 L LDL Cholesterol Direct Urine Creatinine Urine Total Protein Salicylates Acetaminophen Crossmatch 11/06/21 11/06/21 11/06/21 05:40 08:07 08:07 WBC RBC Hgb Hct MCH RDW Plt Count Lymph % (Auto) [place] % (Auto) Lymph # (Auto) [place] # (Auto) Seg Neutrophils % Seg Neuts % (Manual) Lymphocytes % (Manual) Monocytes % (Manual) Nucleated RBC % Seg Neutrophils # Seg Neutrophils # Man Monocytes # (Manual) Eosinophils # (Manual) Basophils # (Manual) PT INR APTT D-Dimer Heparin Anti-Xa Level 1.24 H ABG pH 7.311 L ABG pO2 72.8 L ABG HCO3 29.7 H ABG O2 Saturation 94.1 L ABG Base Excess ABG Hemoglobin 11.4 L Oxyhemoglobin 92.3 L Sodium Potassium 5.2 H Chloride Carbon Dioxide BUN 85 H Creatinine 2.3 H Glucose 236 H POC Glucose Hemoglobin A1c Lactic Acid Calcium Phosphorus Magnesium Ferritin AST ALT Alkaline Phosphatase Lactate Dehydrogenase Troponin T C-Reactive Protein Total Protein Albumin LDL Cholesterol Direct Urine Creatinine Urine Total Protein Salicylates Acetaminophen Crossmatch 11/06/21 11/06/21 11/06/21 12:14 12:57 14:28 WBC RBC Hgb Hct MCH RDW Plt Count Lymph % (Auto) [place] % (Auto) Lymph # (Auto) [place] # (Auto) Seg Neutrophils % Seg Neuts % (Manual) Lymphocytes % (Manual) Monocytes % (Manual) Nucleated RBC % Seg Neutrophils # Seg Neutrophils # Man Monocytes # (Manual) Eosinophils # (Manual) Basophils # (Manual) PT INR APTT D-Dimer Heparin Anti-Xa Level ABG pH 7.282 L ABG pO2 72.6 L ABG HCO3 30.8 H ABG O2 Saturation 93.7 L ABG Base Excess 3.2 H ABG Hemoglobin 8.6 L Oxyhemoglobin 91.8 L Sodium Potassium Chloride Carbon Dioxide BUN 91 H Creatinine 2.6 H Glucose 259 H POC Glucose 225 H Hemoglobin A1c Lactic Acid Calcium Phosphorus Magnesium Ferritin AST ALT Alkaline Phosphatase Lactate Dehydrogenase Troponin T C-Reactive Protein Total Protein Albumin LDL Cholesterol Direct Urine Creatinine Urine Total Protein Salicylates Acetaminophen Crossmatch 11/06/21 11/06/21 11/06/21 17:28 19:20 21:30 WBC RBC Hgb Hct MCH RDW Plt Count Lymph % (Auto) [place] % (Auto) Lymph # (Auto) [place] # (Auto) Seg Neutrophils % Seg Neuts % (Manual) Lymphocytes % (Manual) Monocytes % (Manual) Nucleated RBC % Seg Neutrophils # Seg Neutrophils # Man Monocytes # (Manual) Eosinophils # (Manual) Basophils # (Manual) PT INR APTT D-Dimer Heparin Anti-Xa Level 0.73 H ABG pH ABG pO2 ABG HCO3 ABG O2 Saturation ABG Base Excess ABG Hemoglobin Oxyhemoglobin Sodium Potassium Chloride Carbon Dioxide BUN 95 H Creatinine 2.9 H Glucose 233 H POC Glucose 206 H Hemoglobin A1c Lactic Acid Calcium Phosphorus Magnesium Ferritin AST ALT Alkaline Phosphatase Lactate Dehydrogenase Troponin T C-Reactive Protein Total Protein Albumin LDL Cholesterol Direct Urine Creatinine Urine Total Protein Salicylates Acetaminophen Crossmatch 11/06/21 11/07/21 11/07/21 22:56 05:06 06:30 WBC RBC Hgb Hct MCH RDW Plt Count Lymph % (Auto) [place] % (Auto) Lymph # (Auto) [place] # (Auto) Seg Neutrophils % Seg Neuts % (Manual) Lymphocytes % (Manual) Monocytes % (Manual) Nucleated RBC % Seg Neutrophils # Seg Neutrophils # Man Monocytes # (Manual) Eosinophils # (Manual) Basophils # (Manual) PT INR APTT D-Dimer Heparin Anti-Xa Level ABG pH ABG pO2 ABG HCO3 ABG O2 Saturation ABG Base Excess ABG Hemoglobin Oxyhemoglobin Sodium 146 H Potassium Chloride Carbon Dioxide BUN 98 H Creatinine 2.8 H Glucose 202 H POC Glucose 215 H 172 H Hemoglobin A1c Lactic Acid Calcium Phosphorus 4.90 H D Magnesium 2.90 H Ferritin AST ALT Alkaline Phosphatase Lactate Dehydrogenase Troponin T C-Reactive Protein Total Protein Albumin LDL Cholesterol Direct Urine Creatinine Urine Total Protein Salicylates Acetaminophen Crossmatch 11/07/21 11/07/21 11/07/21 06:30 11:26 12:15 WBC 16.0 H RBC 3.06 L Hgb 8.2 L Hct 26.1 L MCH 27 L RDW 16.2 H Plt Count Lymph % (Auto) [place] % (Auto) Lymph # (Auto) [place] # (Auto) Seg Neutrophils % Seg Neuts % (Manual) 77.0 H Lymphocytes % (Manual) 11.0 L Monocytes % (Manual) Nucleated RBC % 2.0 H Seg Neutrophils # Seg Neutrophils # Man 12.3 H Monocytes # (Manual) Eosinophils # (Manual) Basophils # (Manual) PT INR APTT D-Dimer Heparin Anti-Xa Level ABG pH 7.298 L ABG pO2 73.0 L ABG HCO3 33.3 H ABG O2 Saturation 94.4 L ABG Base Excess 5.8 H ABG Hemoglobin 8.2 L Oxyhemoglobin 92.7 L Sodium Potassium Chloride Carbon Dioxide BUN Creatinine Glucose POC Glucose 179 H Hemoglobin A1c Lactic Acid Calcium Phosphorus Magnesium Ferritin AST ALT Alkaline Phosphatase Lactate Dehydrogenase Troponin T C-Reactive Protein Total Protein Albumin LDL Cholesterol Direct Urine Creatinine Urine Total Protein Salicylates Acetaminophen Crossmatch 11/07/21 11/07/21 11/07/21 17:57 22:16 23:49 WBC RBC Hgb Hct MCH RDW Plt Count Lymph % (Auto) [place] % (Auto) Lymph # (Auto) [place] # (Auto) Seg Neutrophils % Seg Neuts % (Manual) Lymphocytes % (Manual) Monocytes % (Manual) Nucleated RBC % Seg Neutrophils # Seg Neutrophils # Man Monocytes # (Manual) Eosinophils # (Manual) Basophils # (Manual) PT INR APTT D-Dimer Heparin Anti-Xa Level ABG pH ABG pO2 ABG HCO3 ABG O2 Saturation ABG Base Excess ABG Hemoglobin Oxyhemoglobin Sodium Potassium Chloride Carbon Dioxide BUN Creatinine Glucose POC Glucose 166 H 223 H 190 H Hemoglobin A1c Lactic Acid Calcium Phosphorus Magnesium Ferritin AST ALT Alkaline Phosphatase Lactate Dehydrogenase Troponin T C-Reactive Protein Total Protein Albumin LDL Cholesterol Direct Urine Creatinine Urine Total Protein Salicylates Acetaminophen Crossmatch 11/08/21 11/08/21 11/08/21 04:20 04:20 06:16 WBC 22.1 H RBC 3.01 L Hgb 8.1 L Hct 25.6 L MCH 27 L RDW 15.4 H Plt Count Lymph % (Auto) [place] % (Auto) Lymph # (Auto) [place] # (Auto) Seg Neutrophils % Seg Neuts % (Manual) Lymphocytes % (Manual) Monocytes % (Manual) Nucleated RBC % Seg Neutrophils # Seg Neutrophils # Man Monocytes # (Manual) Eosinophils # (Manual) Basophils # (Manual) PT INR APTT D-Dimer Heparin Anti-Xa Level ABG pH ABG pO2 ABG HCO3 ABG O2 Saturation ABG Base Excess ABG Hemoglobin Oxyhemoglobin Sodium 151 H Potassium 3.1 L D Chloride 107.3 H Carbon Dioxide 31 H BUN 82 H Creatinine 1.8 H Glucose 232 H POC Glucose 198 H Hemoglobin A1c Lactic Acid Calcium 8.1 L Phosphorus Magnesium Ferritin AST ALT Alkaline Phosphatase Lactate Dehydrogenase Troponin T C-Reactive Protein Total Protein Albumin LDL Cholesterol Direct Urine Creatinine Urine Total Protein Salicylates Acetaminophen Crossmatch 11/08/21 11/08/21 11/08/21 11:38 12:00 18:29 WBC RBC Hgb Hct MCH RDW Plt Count Lymph % (Auto) [place] % (Auto) Lymph # (Auto) [place] # (Auto) Seg Neutrophils % Seg Neuts % (Manual) Lymphocytes % (Manual) Monocytes % (Manual) Nucleated RBC % Seg Neutrophils # Seg Neutrophils # Man Monocytes # (Manual) Eosinophils # (Manual) Basophils # (Manual) PT INR APTT D-Dimer Heparin Anti-Xa Level ABG pH ABG pO2 ABG HCO3 ABG O2 Saturation ABG Base Excess ABG Hemoglobin Oxyhemoglobin Sodium Potassium 3.0 L Chloride Carbon Dioxide BUN Creatinine Glucose POC Glucose 190 H 211 H Hemoglobin A1c Lactic Acid Calcium Phosphorus Magnesium Ferritin AST ALT Alkaline Phosphatase Lactate Dehydrogenase Troponin T C-Reactive Protein Total Protein Albumin LDL Cholesterol Direct Urine Creatinine Urine Total Protein Salicylates Acetaminophen Crossmatch 11/08/21 11/08/21 11/09/21 21:34 21:40 00:36 WBC RBC Hgb Hct MCH RDW Plt Count Lymph % (Auto) [place] % (Auto) Lymph # (Auto) [place] # (Auto) Seg Neutrophils % Seg Neuts % (Manual) Lymphocytes % (Manual) Monocytes % (Manual) Nucleated RBC % Seg Neutrophils # Seg Neutrophils # Man Monocytes # (Manual) Eosinophils # (Manual) Basophils # (Manual) PT INR APTT D-Dimer Heparin Anti-Xa Level ABG pH ABG pO2 ABG HCO3 ABG O2 Saturation ABG Base Excess ABG Hemoglobin Oxyhemoglobin Sodium 148 H Potassium 2.8 L* Chloride Carbon Dioxide 31 H BUN 68 H Creatinine 1.5 H Glucose 191 H POC Glucose 194 H 140 H Hemoglobin A1c Lactic Acid Calcium 8.2 L Phosphorus Magnesium Ferritin AST ALT Alkaline Phosphatase Lactate Dehydrogenase Troponin T C-Reactive Protein Total Protein Albumin LDL Cholesterol Direct Urine Creatinine Urine Total Protein Salicylates Acetaminophen Crossmatch 11/09/21 11/09/21 11/09/21 04:51 04:51 04:51 WBC 27.6 H RBC 3.18 L Hgb 8.4 L Hct 26.6 L MCH 27 L RDW 15.3 H Plt Count Lymph % (Auto) [place] % (Auto) Lymph # (Auto) [place] # (Auto) Seg Neutrophils % Seg Neuts % (Manual) Lymphocytes % (Manual) Monocytes % (Manual) Nucleated RBC % Seg Neutrophils # Seg Neutrophils # Man Monocytes # (Manual) Eosinophils # (Manual) Basophils # (Manual) PT INR APTT D-Dimer Heparin Anti-Xa Level 0.18 L ABG pH ABG pO2 ABG HCO3 ABG O2 Saturation ABG Base Excess ABG Hemoglobin Oxyhemoglobin Sodium 148 H Potassium 2.7 L* Chloride Carbon Dioxide BUN 59 H Creatinine 1.4 H Glucose 143 H POC Glucose Hemoglobin A1c Lactic Acid Calcium 8.3 L Phosphorus Magnesium Ferritin AST ALT Alkaline Phosphatase Lactate Dehydrogenase Troponin T C-Reactive Protein Total Protein Albumin LDL Cholesterol Direct Urine Creatinine Urine Total Protein Salicylates Acetaminophen Crossmatch 11/09/21 11/09/21 11/09/21 05:52 08:45 11:00 WBC RBC Hgb Hct MCH RDW Plt Count Lymph % (Auto) [place] % (Auto) Lymph # (Auto) [place] # (Auto) Seg Neutrophils % Seg Neuts % (Manual) Lymphocytes % (Manual) Monocytes % (Manual) Nucleated RBC % Seg Neutrophils # Seg Neutrophils # Man Monocytes # (Manual) Eosinophils # (Manual) Basophils # (Manual) PT INR APTT D-Dimer Heparin Anti-Xa Level ABG pH ABG pO2 73.2 L ABG HCO3 33.8 H ABG O2 Saturation ABG Base Excess 8.7 H ABG Hemoglobin 8.5 L Oxyhemoglobin 94.1 L Sodium Potassium Chloride Carbon Dioxide BUN Creatinine Glucose POC Glucose 166 H 136 H Hemoglobin A1c Lactic Acid Calcium Phosphorus Magnesium Ferritin AST ALT Alkaline Phosphatase Lactate Dehydrogenase Troponin T C-Reactive Protein Total Protein Albumin LDL Cholesterol Direct Urine Creatinine Urine Total Protein Salicylates Acetaminophen Crossmatch 11/09/21 11/09/21 11/09/21 15:48 16:10 20:31 WBC RBC Hgb Hct MCH RDW Plt Count Lymph % (Auto) [place] % (Auto) Lymph # (Auto) [place] # (Auto) Seg Neutrophils % Seg Neuts % (Manual) Lymphocytes % (Manual) Monocytes % (Manual) Nucleated RBC % Seg Neutrophils # Seg Neutrophils # Man Monocytes # (Manual) Eosinophils # (Manual) Basophils # (Manual) PT INR APTT D-Dimer Heparin Anti-Xa Level ABG pH ABG pO2 ABG HCO3 ABG O2 Saturation ABG Base Excess ABG Hemoglobin Oxyhemoglobin Sodium Potassium 2.8 L* Chloride Carbon Dioxide 31 H BUN 53 H Creatinine 1.3 H Glucose 208 H POC Glucose 203 H 166 H Hemoglobin A1c Lactic Acid Calcium 7.9 L Phosphorus Magnesium Ferritin AST ALT Alkaline Phosphatase Lactate Dehydrogenase Troponin T C-Reactive Protein Total Protein Albumin LDL Cholesterol Direct Urine Creatinine Urine Total Protein Salicylates Acetaminophen Crossmatch 11/09/21 11/09/21 11/09/21 21:30 23:16 Unknown WBC RBC Hgb Hct MCH RDW Plt Count Lymph % (Auto) [place] % (Auto) Lymph # (Auto) [place] # (Auto) Seg Neutrophils % Seg Neuts % (Manual) Lymphocytes % (Manual) Monocytes % (Manual) Nucleated RBC % Seg Neutrophils # Seg Neutrophils # Man Monocytes # (Manual) Eosinophils # (Manual) Basophils # (Manual) PT INR APTT D-Dimer Heparin Anti-Xa Level 0.24 L ABG pH ABG pO2 ABG HCO3 ABG O2 Saturation ABG Base Excess ABG Hemoglobin Oxyhemoglobin Sodium Potassium Chloride Carbon Dioxide BUN 52 H Creatinine 1.4 H Glucose 185 H POC Glucose 172 H Hemoglobin A1c Lactic Acid Calcium 7.8 L Phosphorus Magnesium Ferritin AST ALT Alkaline Phosphatase Lactate Dehydrogenase Troponin T C-Reactive Protein Total Protein Albumin LDL Cholesterol Direct Urine Creatinine Urine Total Protein Salicylates Acetaminophen Crossmatch 11/10/21 11/10/21 11/10/21 02:00 04:17 04:17 WBC 24.5 H RBC 2.75 L Hgb 7.5 L Hct 22.9 L MCH 27 L RDW Plt Count Lymph % (Auto) [place] % (Auto) Lymph # (Auto) [place] # (Auto) Seg Neutrophils % Seg Neuts % (Manual) Lymphocytes % (Manual) Monocytes % (Manual) Nucleated RBC % Seg Neutrophils # Seg Neutrophils # Man Monocytes # (Manual) Eosinophils # (Manual) Basophils # (Manual) PT INR APTT D-Dimer Heparin Anti-Xa Level 0.26 L ABG pH ABG pO2 ABG HCO3 ABG O2 Saturation ABG Base Excess ABG Hemoglobin Oxyhemoglobin Sodium Potassium 2.9 L* Chloride Carbon Dioxide 35 H BUN 48 H Creatinine Glucose 212 H POC Glucose Hemoglobin A1c Lactic Acid Calcium 8.1 L Phosphorus Magnesium Ferritin AST ALT Alkaline Phosphatase Lactate Dehydrogenase Troponin T C-Reactive Protein Total Protein Albumin LDL Cholesterol Direct Urine Creatinine Urine Total Protein Salicylates Acetaminophen Crossmatch 11/10/21 11/10/21 11/10/21 05:01 08:39 11:03 WBC RBC Hgb Hct MCH RDW Plt Count Lymph % (Auto) [place] % (Auto) Lymph # (Auto) [place] # (Auto) Seg Neutrophils % Seg Neuts % (Manual) Lymphocytes % (Manual) Monocytes % (Manual) Nucleated RBC % Seg Neutrophils # Seg Neutrophils # Man Monocytes # (Manual) Eosinophils # (Manual) Basophils # (Manual) PT INR APTT D-Dimer Heparin Anti-Xa Level 0.12 L ABG pH ABG pO2 ABG HCO3 ABG O2 Saturation ABG Base Excess ABG Hemoglobin Oxyhemoglobin Sodium Potassium Chloride Carbon Dioxide BUN Creatinine Glucose POC Glucose 203 H 152 H Hemoglobin A1c Lactic Acid Calcium Phosphorus Magnesium Ferritin AST ALT Alkaline Phosphatase Lactate Dehydrogenase Troponin T C-Reactive Protein Total Protein Albumin LDL Cholesterol Direct Urine Creatinine Urine Total Protein Salicylates Acetaminophen Crossmatch 11/10/21 11/10/21 11/10/21 12:45 15:43 21:05 WBC RBC Hgb Hct MCH RDW Plt Count Lymph % (Auto) [place] % (Auto) Lymph # (Auto) [place] # (Auto) Seg Neutrophils % Seg Neuts % (Manual) Lymphocytes % (Manual) Monocytes % (Manual) Nucleated RBC % Seg Neutrophils # Seg Neutrophils # Man Monocytes # (Manual) Eosinophils # (Manual) Basophils # (Manual) PT INR APTT D-Dimer Heparin Anti-Xa Level ABG pH ABG pO2 ABG HCO3 ABG O2 Saturation ABG Base Excess ABG Hemoglobin Oxyhemoglobin Sodium 146 H Potassium 3.3 L Chloride Carbon Dioxide 31 H BUN 43 H Creatinine Glucose 155 H POC Glucose 139 H 139 H Hemoglobin A1c Lactic Acid Calcium 8.3 L Phosphorus Magnesium Ferritin AST ALT Alkaline Phosphatase Lactate Dehydrogenase Troponin T C-Reactive Protein Total Protein Albumin LDL Cholesterol Direct Urine Creatinine Urine Total Protein Salicylates Acetaminophen Crossmatch 11/10/21 11/11/21 11/11/21 23:25 03:49 03:49 WBC 22.1 H RBC 2.69 L Hgb 7.2 L Hct 22.7 L MCH 27 L RDW Plt Count Lymph % (Auto) [place] % (Auto) Lymph # (Auto) [place] # (Auto) Seg Neutrophils % Seg Neuts % (Manual) Lymphocytes % (Manual) Monocytes % (Manual) Nucleated RBC % Seg Neutrophils # Seg Neutrophils # Man Monocytes # (Manual) Eosinophils # (Manual) Basophils # (Manual) PT INR APTT D-Dimer Heparin Anti-Xa Level ABG pH ABG pO2 ABG HCO3 ABG O2 Saturation ABG Base Excess ABG Hemoglobin Oxyhemoglobin Sodium Potassium Chloride Carbon Dioxide 32 H BUN 44 H Creatinine 1.3 H Glucose 173 H POC Glucose 146 H Hemoglobin A1c Lactic Acid Calcium Phosphorus Magnesium Ferritin AST ALT Alkaline Phosphatase Lactate Dehydrogenase Troponin T C-Reactive Protein Total Protein Albumin LDL Cholesterol Direct Urine Creatinine Urine Total Protein Salicylates Acetaminophen Crossmatch 11/11/21 11/11/21 11/11/21 05:03 10:50 11:32 WBC RBC Hgb Hct MCH RDW Plt Count Lymph % (Auto) [place] % (Auto) Lymph # (Auto) [place] # (Auto) Seg Neutrophils % Seg Neuts % (Manual) Lymphocytes % (Manual) Monocytes % (Manual) Nucleated RBC % Seg Neutrophils # Seg Neutrophils # Man Monocytes # (Manual) Eosinophils # (Manual) Basophils # (Manual) PT INR APTT D-Dimer Heparin Anti-Xa Level ABG pH ABG pO2 ABG HCO3 ABG O2 Saturation ABG Base Excess ABG Hemoglobin Oxyhemoglobin Sodium Potassium Chloride Carbon Dioxide BUN Creatinine Glucose POC Glucose 152 H 129 H 133 H Hemoglobin A1c Lactic Acid Calcium Phosphorus Magnesium Ferritin AST ALT Alkaline Phosphatase Lactate Dehydrogenase Troponin T C-Reactive Protein Total Protein Albumin LDL Cholesterol Direct Urine Creatinine Urine Total Protein Salicylates Acetaminophen Crossmatch 11/11/21 11/11/21 11/11/21 13:53 16:31 17:13 WBC RBC Hgb Hct MCH RDW Plt Count Lymph % (Auto) [place] % (Auto) Lymph # (Auto) [place] # (Auto) Seg Neutrophils % Seg Neuts % (Manual) Lymphocytes % (Manual) Monocytes % (Manual) Nucleated RBC % Seg Neutrophils # Seg Neutrophils # Man Monocytes # (Manual) Eosinophils # (Manual) Basophils # (Manual) PT INR APTT D-Dimer Heparin Anti-Xa Level ABG pH 7.475 H ABG pO2 64.1 L ABG HCO3 32.4 H ABG O2 Saturation ABG Base Excess 8.0 H ABG Hemoglobin 7.6 L Oxyhemoglobin 94.0 L Sodium Potassium Chloride Carbon Dioxide BUN Creatinine Glucose POC Glucose 116 H 125 H Hemoglobin A1c Lactic Acid Calcium Phosphorus Magnesium Ferritin AST ALT Alkaline Phosphatase Lactate Dehydrogenase Troponin T C-Reactive Protein Total Protein Albumin LDL Cholesterol Direct Urine Creatinine Urine Total Protein Salicylates Acetaminophen Crossmatch 11/11/21 11/11/21 11/12/21 20:40 23:35 03:30 WBC 17.7 H RBC 2.37 L Hgb 6.3 L Hct 20.0 L MCH 27 L RDW 15.5 H Plt Count Lymph % (Auto) [place] % (Auto) Lymph # (Auto) [place] # (Auto) Seg Neutrophils % Seg Neuts % (Manual) Lymphocytes % (Manual) Monocytes % (Manual) Nucleated RBC % Seg Neutrophils # Seg Neutrophils # Man Monocytes # (Manual) Eosinophils # (Manual) Basophils # (Manual) PT INR APTT D-Dimer Heparin Anti-Xa Level 0.26 L ABG pH ABG pO2 ABG HCO3 ABG O2 Saturation ABG Base Excess ABG Hemoglobin Oxyhemoglobin Sodium Potassium Chloride Carbon Dioxide BUN Creatinine Glucose POC Glucose 118 H Hemoglobin A1c Lactic Acid Calcium Phosphorus Magnesium Ferritin AST ALT Alkaline Phosphatase Lactate Dehydrogenase Troponin T C-Reactive Protein Total Protein Albumin LDL Cholesterol Direct Urine Creatinine Urine Total Protein Salicylates Acetaminophen Crossmatch 11/12/21 11/12/21 11/12/21 03:30 04:15 11:53 WBC RBC Hgb Hct MCH RDW Plt Count Lymph % (Auto) [place] % (Auto) Lymph # (Auto) [place] # (Auto) Seg Neutrophils % Seg Neuts % (Manual) Lymphocytes % (Manual) Monocytes % (Manual) Nucleated RBC % Seg Neutrophils # Seg Neutrophils # Man Monocytes # (Manual) Eosinophils # (Manual) Basophils # (Manual) PT INR APTT D-Dimer Heparin Anti-Xa Level ABG pH ABG pO2 ABG HCO3 ABG O2 Saturation ABG Base Excess ABG Hemoglobin Oxyhemoglobin Sodium Potassium Chloride Carbon Dioxide 33 H BUN 38 H Creatinine 1.3 H Glucose 102 H POC Glucose 62 L Hemoglobin A1c Lactic Acid Calcium 8.2 L Phosphorus Magnesium Ferritin AST ALT Alkaline Phosphatase Lactate Dehydrogenase Troponin T C-Reactive Protein Total Protein Albumin LDL Cholesterol Direct Urine Creatinine Urine Total Protein Salicylates Acetaminophen Crossmatch See Detail 11/12/21 11/12/21 11/12/21 17:20 19:14 23:11 WBC RBC Hgb 6.2 L Hct 19.5 L* MCH RDW Plt Count Lymph % (Auto) [place] % (Auto) Lymph # (Auto) [place] # (Auto) Seg Neutrophils % Seg Neuts % (Manual) Lymphocytes % (Manual) Monocytes % (Manual) Nucleated RBC % Seg Neutrophils # Seg Neutrophils # Man Monocytes # (Manual) Eosinophils # (Manual) Basophils # (Manual) PT INR APTT D-Dimer Heparin Anti-Xa Level ABG pH ABG pO2 ABG HCO3 ABG O2 Saturation ABG Base Excess ABG Hemoglobin Oxyhemoglobin Sodium Potassium Chloride Carbon Dioxide BUN Creatinine Glucose POC Glucose 115 H 131 H Hemoglobin A1c Lactic Acid Calcium Phosphorus Magnesium Ferritin AST ALT Alkaline Phosphatase Lactate Dehydrogenase Troponin T C-Reactive Protein Total Protein Albumin LDL Cholesterol Direct Urine Creatinine Urine Total Protein Salicylates Acetaminophen Crossmatch 11/13/21 11/13/21 11/13/21 00:13 04:17 04:17 WBC 23.8 H RBC 2.84 L Hgb 7.4 L 7.8 L Hct 23.3 L 24.9 L MCH 27 L RDW 15.4 H Plt Count Lymph % (Auto) [place] % (Auto) Lymph # (Auto) [place] # (Auto) Seg Neutrophils % Seg Neuts % (Manual) Lymphocytes % (Manual) Monocytes % (Manual) Nucleated RBC % Seg Neutrophils # Seg Neutrophils # Man Monocytes # (Manual) Eosinophils # (Manual) Basophils # (Manual) PT INR APTT D-Dimer Heparin Anti-Xa Level ABG pH ABG pO2 ABG HCO3 ABG O2 Saturation ABG Base Excess ABG Hemoglobin Oxyhemoglobin Sodium 146 H Potassium Chloride Carbon Dioxide BUN 44 H Creatinine 1.6 H Glucose 144 H POC Glucose Hemoglobin A1c Lactic Acid Calcium 7.9 L Phosphorus 5.10 H D Magnesium Ferritin AST ALT Alkaline Phosphatase Lactate Dehydrogenase Troponin T C-Reactive Protein Total Protein Albumin LDL Cholesterol Direct Urine Creatinine Urine Total Protein Salicylates Acetaminophen Crossmatch 11/13/21 11/13/21 11/13/21 05:52 10:54 15:57 WBC RBC Hgb Hct MCH RDW Plt Count Lymph % (Auto) [place] % (Auto) Lymph # (Auto) [place] # (Auto) Seg Neutrophils % Seg Neuts % (Manual) Lymphocytes % (Manual) Monocytes % (Manual) Nucleated RBC % Seg Neutrophils # Seg Neutrophils # Man Monocytes # (Manual) Eosinophils # (Manual) Basophils # (Manual) PT INR APTT D-Dimer Heparin Anti-Xa Level ABG pH ABG pO2 ABG HCO3 ABG O2 Saturation ABG Base Excess ABG Hemoglobin Oxyhemoglobin Sodium Potassium Chloride Carbon Dioxide BUN Creatinine Glucose POC Glucose 123 H 147 H 207 H Hemoglobin A1c Lactic Acid Calcium Phosphorus Magnesium Ferritin AST ALT Alkaline Phosphatase Lactate Dehydrogenase Troponin T C-Reactive Protein Total Protein Albumin LDL Cholesterol Direct Urine Creatinine Urine Total Protein Salicylates Acetaminophen Crossmatch 11/13/21 11/13/21 11/14/21 16:01 23:18 04:55 WBC 23.9 H RBC 2.86 L Hgb 6.5 L 8.3 L Hct 20.3 L 24.5 L MCH RDW Plt Count Lymph % (Auto) [place] % (Auto) Lymph # (Auto) [place] # (Auto) Seg Neutrophils % Seg Neuts % (Manual) Lymphocytes % (Manual) Monocytes % (Manual) Nucleated RBC % Seg Neutrophils # Seg Neutrophils # Man Monocytes # (Manual) Eosinophils # (Manual) Basophils # (Manual) PT INR APTT D-Dimer Heparin Anti-Xa Level ABG pH ABG pO2 ABG HCO3 ABG O2 Saturation ABG Base Excess ABG Hemoglobin Oxyhemoglobin Sodium Potassium Chloride Carbon Dioxide BUN Creatinine Glucose POC Glucose 209 H Hemoglobin A1c Lactic Acid Calcium Phosphorus Magnesium Ferritin AST ALT Alkaline Phosphatase Lactate Dehydrogenase Troponin T C-Reactive Protein Total Protein Albumin LDL Cholesterol Direct Urine Creatinine Urine Total Protein Salicylates Acetaminophen Crossmatch 11/14/21 11/14/21 11/14/21 04:55 05:09 11:35 WBC RBC Hgb Hct MCH RDW Plt Count Lymph % (Auto) [place] % (Auto) Lymph # (Auto) [place] # (Auto) Seg Neutrophils % Seg Neuts % (Manual) Lymphocytes % (Manual) Monocytes % (Manual) Nucleated RBC % Seg Neutrophils # Seg Neutrophils # Man Monocytes # (Manual) Eosinophils # (Manual) Basophils # (Manual) PT INR APTT D-Dimer Heparin Anti-Xa Level ABG pH ABG pO2 ABG HCO3 ABG O2 Saturation ABG Base Excess ABG Hemoglobin Oxyhemoglobin Sodium 148 H Potassium Chloride 109.0 H Carbon Dioxide BUN 42 H Creatinine 1.6 H Glucose 184 H POC Glucose 169 H 154 H Hemoglobin A1c Lactic Acid Calcium 8.0 L Phosphorus Magnesium Ferritin AST ALT Alkaline Phosphatase Lactate Dehydrogenase Troponin T C-Reactive Protein Total Protein Albumin LDL Cholesterol Direct Urine Creatinine Urine Total Protein Salicylates Acetaminophen Crossmatch 11/14/21 11/14/21 11/15/21 16:57 23:11 04:36 WBC RBC Hgb Hct MCH RDW Plt Count Lymph % (Auto) [place] % (Auto) Lymph # (Auto) [place] # (Auto) Seg Neutrophils % Seg Neuts % (Manual) Lymphocytes % (Manual) Monocytes % (Manual) Nucleated RBC % Seg Neutrophils # Seg Neutrophils # Man Monocytes # (Manual) Eosinophils # (Manual) Basophils # (Manual) PT INR APTT D-Dimer Heparin Anti-Xa Level ABG pH ABG pO2 ABG HCO3 ABG O2 Saturation ABG Base Excess ABG Hemoglobin Oxyhemoglobin Sodium 151 H Potassium Chloride 111.2 H Carbon Dioxide BUN 36 H Creatinine 1.3 H Glucose 136 H POC Glucose 124 H 118 H Hemoglobin A1c Lactic Acid Calcium 8.1 L Phosphorus Magnesium Ferritin AST ALT Alkaline Phosphatase Lactate Dehydrogenase Troponin T C-Reactive Protein Total Protein Albumin LDL Cholesterol Direct Urine Creatinine Urine Total Protein Salicylates Acetaminophen Crossmatch 11/15/21 11/15/21 11/16/21 11:18 21:49 00:15 WBC RBC Hgb Hct MCH RDW Plt Count Lymph % (Auto) [place] % (Auto) Lymph # (Auto) [place] # (Auto) Seg Neutrophils % Seg Neuts % (Manual) Lymphocytes % (Manual) Monocytes % (Manual) Nucleated RBC % Seg Neutrophils # Seg Neutrophils # Man Monocytes # (Manual) Eosinophils # (Manual) Basophils # (Manual) PT INR APTT D-Dimer Heparin Anti-Xa Level ABG pH ABG pO2 ABG HCO3 ABG O2 Saturation ABG Base Excess ABG Hemoglobin Oxyhemoglobin Sodium Potassium Chloride Carbon Dioxide BUN Creatinine Glucose POC Glucose 154 H 154 H 146 H Hemoglobin A1c Lactic Acid Calcium Phosphorus Magnesium Ferritin AST ALT Alkaline Phosphatase Lactate Dehydrogenase Troponin T C-Reactive Protein Total Protein Albumin LDL Cholesterol Direct Urine Creatinine Urine Total Protein Salicylates Acetaminophen Crossmatch 11/16/21 11/16/21 11/16/21 05:11 05:11 05:37 WBC 18.2 H RBC 2.92 L Hgb 8.3 L Hct 26.1 L MCH RDW 15.8 H Plt Count Lymph % (Auto) 6.3 L [place] % (Auto) 10.2 H Lymph # (Auto) [place] # (Auto) 1.9 H Seg Neutrophils % 81.7 H Seg Neuts % (Manual) Lymphocytes % (Manual) Monocytes % (Manual) Nucleated RBC % Seg Neutrophils # 14.9 H Seg Neutrophils # Man Monocytes # (Manual) Eosinophils # (Manual) Basophils # (Manual) PT INR APTT D-Dimer Heparin Anti-Xa Level ABG pH ABG pO2 ABG HCO3 ABG O2 Saturation ABG Base Excess ABG Hemoglobin Oxyhemoglobin Sodium 146 H Potassium Chloride 108.0 H Carbon Dioxide BUN 25 H Creatinine Glucose 123 H POC Glucose 109 H Hemoglobin A1c Lactic Acid Calcium 7.8 L Phosphorus Magnesium Ferritin AST ALT Alkaline Phosphatase Lactate Dehydrogenase Troponin T C-Reactive Protein Total Protein Albumin LDL Cholesterol Direct Urine Creatinine Urine Total Protein Salicylates Acetaminophen Crossmatch 11/16/21 11/16/21 11/17/21 11:22 23:55 04:33 WBC RBC Hgb Hct MCH RDW Plt Count Lymph % (Auto) [place] % (Auto) Lymph # (Auto) [place] # (Auto) Seg Neutrophils % Seg Neuts % (Manual) Lymphocytes % (Manual) Monocytes % (Manual) Nucleated RBC % Seg Neutrophils # Seg Neutrophils # Man Monocytes # (Manual) Eosinophils # (Manual) Basophils # (Manual) PT INR APTT D-Dimer Heparin Anti-Xa Level ABG pH ABG pO2 ABG HCO3 ABG O2 Saturation ABG Base Excess ABG Hemoglobin Oxyhemoglobin Sodium Potassium Chloride Carbon Dioxide BUN 20 H Creatinine Glucose POC Glucose 136 H 113 H Hemoglobin A1c Lactic Acid Calcium 7.5 L Phosphorus Magnesium Ferritin AST ALT Alkaline Phosphatase Lactate Dehydrogenase Troponin T C-Reactive Protein Total Protein Albumin LDL Cholesterol Direct Urine Creatinine Urine Total Protein Salicylates Acetaminophen Crossmatch 11/17/21 11/18/21 11/18/21 23:22 04:53 04:53 WBC 13.0 H RBC 2.99 L Hgb 8.5 L Hct 26.4 L MCH RDW Plt Count Lymph % (Auto) 9.5 L [place] % (Auto) 9.8 H Lymph # (Auto) [place] # (Auto) 1.3 H Seg Neutrophils % 78.3 H Seg Neuts % (Manual) Lymphocytes % (Manual) Monocytes % (Manual) Nucleated RBC % Seg Neutrophils # 10.2 H Seg Neutrophils # Man Monocytes # (Manual) Eosinophils # (Manual) Basophils # (Manual) PT INR APTT D-Dimer Heparin Anti-Xa Level ABG pH ABG pO2 ABG HCO3 ABG O2 Saturation ABG Base Excess ABG Hemoglobin Oxyhemoglobin Sodium Potassium Chloride Carbon Dioxide BUN 18 H Creatinine Glucose 106 H POC Glucose 112 H Hemoglobin A1c Lactic Acid Calcium 8.1 L Phosphorus Magnesium Ferritin AST ALT Alkaline Phosphatase Lactate Dehydrogenase Troponin T C-Reactive Protein Total Protein Albumin LDL Cholesterol Direct Urine Creatinine Urine Total Protein Salicylates Acetaminophen Crossmatch 11/18/21 11/18/21 11/19/21 11:35 17:42 14:38 WBC RBC Hgb Hct MCH RDW Plt Count Lymph % (Auto) [place] % (Auto) Lymph # (Auto) [place] # (Auto) Seg Neutrophils % Seg Neuts % (Manual) Lymphocytes % (Manual) Monocytes % (Manual) Nucleated RBC % Seg Neutrophils # Seg Neutrophils # Man Monocytes # (Manual) Eosinophils # (Manual) Basophils # (Manual) PT INR APTT D-Dimer Heparin Anti-Xa Level ABG pH ABG pO2 ABG HCO3 ABG O2 Saturation ABG Base Excess ABG Hemoglobin Oxyhemoglobin Sodium Potassium Chloride 97.5 L Carbon Dioxide 31 H BUN Creatinine Glucose 146 H POC Glucose 143 H 132 H Hemoglobin A1c Lactic Acid Calcium Phosphorus Magnesium 1.60 L Ferritin AST ALT Alkaline Phosphatase Lactate Dehydrogenase Troponin T C-Reactive Protein Total Protein Albumin LDL Cholesterol Direct Urine Creatinine Urine Total Protein Salicylates Acetaminophen Crossmatch 11/19/21 11/19/21 11/20/21 16:24 23:58 07:42 WBC RBC 3.01 L Hgb 8.6 L Hct 26.7 L MCH RDW 15.4 H Plt Count Lymph % (Auto) [place] % (Auto) Lymph # (Auto) [place] # (Auto) Seg Neutrophils % Seg Neuts % (Manual) Lymphocytes % (Manual) Monocytes % (Manual) Nucleated RBC % Seg Neutrophils # Seg Neutrophils # Man Monocytes # (Manual) Eosinophils # (Manual) Basophils # (Manual) PT INR APTT D-Dimer Heparin Anti-Xa Level ABG pH ABG pO2 ABG HCO3 ABG O2 Saturation ABG Base Excess ABG Hemoglobin Oxyhemoglobin Sodium Potassium Chloride Carbon Dioxide BUN Creatinine Glucose POC Glucose 129 H 125 H Hemoglobin A1c Lactic Acid Calcium Phosphorus Magnesium Ferritin AST ALT Alkaline Phosphatase Lactate Dehydrogenase Troponin T C-Reactive Protein Total Protein Albumin LDL Cholesterol Direct Urine Creatinine Urine Total Protein Salicylates Acetaminophen Crossmatch 11/20/21 11/20/21 11/20/21 07:42 11:25 22:59 WBC RBC Hgb Hct MCH RDW Plt Count Lymph % (Auto) [place] % (Auto) Lymph # (Auto) [place] # (Auto) Seg Neutrophils % Seg Neuts % (Manual) Lymphocytes % (Manual) Monocytes % (Manual) Nucleated RBC % Seg Neutrophils # Seg Neutrophils # Man Monocytes # (Manual) Eosinophils # (Manual) Basophils # (Manual) PT INR APTT D-Dimer Heparin Anti-Xa Level ABG pH ABG pO2 ABG HCO3 ABG O2 Saturation ABG Base Excess ABG Hemoglobin Oxyhemoglobin Sodium Potassium Chloride Carbon Dioxide 31 H BUN Creatinine Glucose POC Glucose 116 H 113 H Hemoglobin A1c Lactic Acid Calcium Phosphorus Magnesium Ferritin AST ALT Alkaline Phosphatase Lactate Dehydrogenase Troponin T C-Reactive Protein Total Protein Albumin LDL Cholesterol Direct Urine Creatinine Urine Total Protein Salicylates Acetaminophen Crossmatch 11/21/21 11/22/21 11/22/21 10:50 05:10 16:12 WBC RBC Hgb Hct MCH RDW Plt Count Lymph % (Auto) [place] % (Auto) Lymph # (Auto) [place] # (Auto) Seg Neutrophils % Seg Neuts % (Manual) Lymphocytes % (Manual) Monocytes % (Manual) Nucleated RBC % Seg Neutrophils # Seg Neutrophils # Man Monocytes # (Manual) Eosinophils # (Manual) Basophils # (Manual) PT INR APTT D-Dimer Heparin Anti-Xa Level ABG pH ABG pO2 ABG HCO3 ABG O2 Saturation ABG Base Excess ABG Hemoglobin Oxyhemoglobin Sodium Potassium Chloride Carbon Dioxide 32 H BUN Creatinine Glucose POC Glucose 156 H 110 H Hemoglobin A1c Lactic Acid Calcium 8.1 L Phosphorus Magnesium Ferritin AST ALT Alkaline Phosphatase Lactate Dehydrogenase Troponin T C-Reactive Protein Total Protein Albumin LDL Cholesterol Direct Urine Creatinine Urine Total Protein Salicylates Acetaminophen Crossmatch 11/23/21 11/23/21 11/23/21 07:18 07:18 11:45 WBC RBC 3.23 L Hgb 9.1 L Hct 28.5 L MCH RDW 15.6 H Plt Count Lymph % (Auto) [place] % (Auto) Lymph # (Auto) [place] # (Auto) Seg Neutrophils % Seg Neuts % (Manual) Lymphocytes % (Manual) Monocytes % (Manual) Nucleated RBC % Seg Neutrophils # Seg Neutrophils # Man Monocytes # (Manual) Eosinophils # (Manual) Basophils # (Manual) PT INR APTT D-Dimer Heparin Anti-Xa Level ABG pH ABG pO2 ABG HCO3 ABG O2 Saturation ABG Base Excess ABG Hemoglobin Oxyhemoglobin Sodium Potassium 3.3 L Chloride 96.8 L Carbon Dioxide 32 H BUN Creatinine Glucose POC Glucose 140 H Hemoglobin A1c Lactic Acid Calcium Phosphorus Magnesium Ferritin AST ALT Alkaline Phosphatase Lactate Dehydrogenase Troponin T C-Reactive Protein Total Protein Albumin LDL Cholesterol Direct Urine Creatinine Urine Total Protein Salicylates Acetaminophen Crossmatch 11/23/21 11/23/21 11/24/21 16:40 23:45 07:19 WBC RBC 3.12 L Hgb 9.3 L Hct 27.2 L MCH RDW 16.0 H Plt Count Lymph % (Auto) 10.3 L [place] % (Auto) 10.0 H Lymph # (Auto) 1.1 L [place] # (Auto) 1.1 H Seg Neutrophils % 75.2 H Seg Neuts % (Manual) Lymphocytes % (Manual) Monocytes % (Manual) Nucleated RBC % Seg Neutrophils # 7.9 H Seg Neutrophils # Man Monocytes # (Manual) Eosinophils # (Manual) Basophils # (Manual) PT INR APTT D-Dimer Heparin Anti-Xa Level ABG pH ABG pO2 ABG HCO3 ABG O2 Saturation ABG Base Excess ABG Hemoglobin Oxyhemoglobin Sodium Potassium Chloride Carbon Dioxide BUN Creatinine Glucose POC Glucose 140 H 138 H Hemoglobin A1c Lactic Acid Calcium Phosphorus Magnesium Ferritin AST ALT Alkaline Phosphatase Lactate Dehydrogenase Troponin T C-Reactive Protein Total Protein Albumin LDL Cholesterol Direct Urine Creatinine Urine Total Protein Salicylates Acetaminophen Crossmatch 11/24/21 11/24/21 11/24/21 07:19 11:49 15:54 WBC RBC Hgb Hct MCH RDW Plt Count Lymph % (Auto) [place] % (Auto) Lymph # (Auto) [place] # (Auto) Seg Neutrophils % Seg Neuts % (Manual) Lymphocytes % (Manual) Monocytes % (Manual) Nucleated RBC % Seg Neutrophils # Seg Neutrophils # Man Monocytes # (Manual) Eosinophils # (Manual) Basophils # (Manual) PT INR APTT D-Dimer Heparin Anti-Xa Level ABG pH ABG pO2 ABG HCO3 ABG O2 Saturation ABG Base Excess ABG Hemoglobin Oxyhemoglobin Sodium Potassium 3.2 L Chloride 96.7 L Carbon Dioxide BUN Creatinine Glucose 125 H POC Glucose 118 H 106 H Hemoglobin A1c Lactic Acid Calcium Phosphorus Magnesium Ferritin AST ALT Alkaline Phosphatase Lactate Dehydrogenase Troponin T C-Reactive Protein Total Protein Albumin LDL Cholesterol Direct Urine Creatinine Urine Total Protein Salicylates Acetaminophen Crossmatch 11/25/21 11/25/21 11/25/21 11:49 15:41 20:51 WBC RBC Hgb Hct MCH RDW Plt Count Lymph % (Auto) [place] % (Auto) Lymph # (Auto) [place] # (Auto) Seg Neutrophils % Seg Neuts % (Manual) Lymphocytes % (Manual) Monocytes % (Manual) Nucleated RBC % Seg Neutrophils # Seg Neutrophils # Man Monocytes # (Manual) Eosinophils # (Manual) Basophils # (Manual) PT INR APTT D-Dimer Heparin Anti-Xa Level ABG pH ABG pO2 ABG HCO3 ABG O2 Saturation ABG Base Excess ABG Hemoglobin Oxyhemoglobin Sodium Potassium Chloride Carbon Dioxide BUN Creatinine Glucose POC Glucose 119 H 110 H 109 H Hemoglobin A1c Lactic Acid Calcium Phosphorus Magnesium Ferritin AST ALT Alkaline Phosphatase Lactate Dehydrogenase Troponin T C-Reactive Protein Total Protein Albumin LDL Cholesterol Direct Urine Creatinine Urine Total Protein Salicylates Acetaminophen Crossmatch 11/26/21 11/26/21 11/26/21 07:33 11:20 17:03 WBC RBC Hgb Hct MCH RDW Plt Count Lymph % (Auto) [place] % (Auto) Lymph # (Auto) [place] # (Auto) Seg Neutrophils % Seg Neuts % (Manual) Lymphocytes % (Manual) Monocytes % (Manual) Nucleated RBC % Seg Neutrophils # Seg Neutrophils # Man Monocytes # (Manual) Eosinophils # (Manual) Basophils # (Manual) PT INR APTT D-Dimer Heparin Anti-Xa Level ABG pH ABG pO2 ABG HCO3 ABG O2 Saturation ABG Base Excess ABG Hemoglobin Oxyhemoglobin Sodium Potassium Chloride Carbon Dioxide BUN Creatinine Glucose POC Glucose 158 H 162 H 144 H Hemoglobin A1c Lactic Acid Calcium Phosphorus Magnesium Ferritin AST ALT Alkaline Phosphatase Lactate Dehydrogenase Troponin T C-Reactive Protein Total Protein Albumin LDL Cholesterol Direct Urine Creatinine Urine Total Protein Salicylates Acetaminophen Crossmatch 11/26/21 11/27/21 11/27/21 21:51 07:44 12:20 WBC RBC Hgb Hct MCH RDW Plt Count Lymph % (Auto) [place] % (Auto) Lymph # (Auto) [place] # (Auto) Seg Neutrophils % Seg Neuts % (Manual) Lymphocytes % (Manual) Monocytes % (Manual) Nucleated RBC % Seg Neutrophils # Seg Neutrophils # Man Monocytes # (Manual) Eosinophils # (Manual) Basophils # (Manual) PT INR APTT D-Dimer Heparin Anti-Xa Level ABG pH ABG pO2 ABG HCO3 ABG O2 Saturation ABG Base Excess ABG Hemoglobin Oxyhemoglobin Sodium Potassium Chloride Carbon Dioxide BUN Creatinine Glucose POC Glucose 132 H 129 H 128 H Hemoglobin A1c Lactic Acid Calcium Phosphorus Magnesium Ferritin AST ALT Alkaline Phosphatase Lactate Dehydrogenase Troponin T C-Reactive Protein Total Protein Albumin LDL Cholesterol Direct Urine Creatinine Urine Total Protein Salicylates Acetaminophen Crossmatch 11/27/21 11/27/21 11/28/21 16:44 21:35 07:54 WBC RBC Hgb Hct MCH RDW Plt Count Lymph % (Auto) [place] % (Auto) Lymph # (Auto) [place] # (Auto) Seg Neutrophils % Seg Neuts % (Manual) Lymphocytes % (Manual) Monocytes % (Manual) Nucleated RBC % Seg Neutrophils # Seg Neutrophils # Man Monocytes # (Manual) Eosinophils # (Manual) Basophils # (Manual) PT INR APTT D-Dimer Heparin Anti-Xa Level ABG pH ABG pO2 ABG HCO3 ABG O2 Saturation ABG Base Excess ABG Hemoglobin Oxyhemoglobin Sodium Potassium Chloride Carbon Dioxide BUN Creatinine Glucose POC Glucose 126 H 131 H 124 H Hemoglobin A1c Lactic Acid Calcium Phosphorus Magnesium Ferritin AST ALT Alkaline Phosphatase Lactate Dehydrogenase Troponin T C-Reactive Protein Total Protein Albumin LDL Cholesterol Direct Urine Creatinine Urine Total Protein Salicylates Acetaminophen Crossmatch 11/28/21 11/28/21 11/28/21 11:27 11:56 16:34 WBC 12.3 H RBC 3.18 L Hgb 9.2 L Hct 27.8 L MCH RDW 16.1 H Plt Count Lymph % (Auto) 10.9 L [place] % (Auto) 13.7 H Lymph # (Auto) [place] # (Auto) 1.7 H Seg Neutrophils % 72.2 H Seg Neuts % (Manual) Lymphocytes % (Manual) Monocytes % (Manual) Nucleated RBC % Seg Neutrophils # 8.9 H Seg Neutrophils # Man Monocytes # (Manual) Eosinophils # (Manual) Basophils # (Manual) PT INR APTT D-Dimer Heparin Anti-Xa Level ABG pH ABG pO2 ABG HCO3 ABG O2 Saturation ABG Base Excess ABG Hemoglobin Oxyhemoglobin Sodium Potassium Chloride Carbon Dioxide BUN Creatinine Glucose POC Glucose 131 H 123 H Hemoglobin A1c Lactic Acid Calcium Phosphorus Magnesium Ferritin AST ALT Alkaline Phosphatase Lactate Dehydrogenase Troponin T C-Reactive Protein Total Protein Albumin LDL Cholesterol Direct Urine Creatinine Urine Total Protein Salicylates Acetaminophen Crossmatch 11/28/21 11/28/21 11/29/21 19:35 21:32 07:33 WBC RBC Hgb Hct MCH RDW Plt Count Lymph % (Auto) [place] % (Auto) Lymph # (Auto) [place] # (Auto) Seg Neutrophils % Seg Neuts % (Manual) Lymphocytes % (Manual) Monocytes % (Manual) Nucleated RBC % Seg Neutrophils # Seg Neutrophils # Man Monocytes # (Manual) Eosinophils # (Manual) Basophils # (Manual) PT INR APTT D-Dimer Heparin Anti-Xa Level 0.12 L ABG pH ABG pO2 ABG HCO3 ABG O2 Saturation ABG Base Excess ABG Hemoglobin Oxyhemoglobin Sodium Potassium Chloride Carbon Dioxide BUN Creatinine Glucose POC Glucose 110 H 108 H Hemoglobin A1c Lactic Acid Calcium Phosphorus Magnesium Ferritin AST ALT Alkaline Phosphatase Lactate Dehydrogenase Troponin T C-Reactive Protein Total Protein Albumin LDL Cholesterol Direct Urine Creatinine Urine Total Protein Salicylates Acetaminophen Crossmatch 11/29/21 11/29/21 11/29/21 11:29 13:51 15:25 WBC 13.0 H RBC 3.41 L Hgb 9.5 L Hct 29.9 L MCH RDW 16.2 H Plt Count Lymph % (Auto) 11.1 L [place] % (Auto) 15.5 H Lymph # (Auto) [place] # (Auto) 2.0 H Seg Neutrophils % 71.8 H Seg Neuts % (Manual) Lymphocytes % (Manual) Monocytes % (Manual) Nucleated RBC % Seg Neutrophils # 9.3 H Seg Neutrophils # Man Monocytes # (Manual) Eosinophils # (Manual) Basophils # (Manual) PT INR APTT D-Dimer Heparin Anti-Xa Level ABG pH ABG pO2 ABG HCO3 ABG O2 Saturation ABG Base Excess ABG Hemoglobin Oxyhemoglobin Sodium Potassium Chloride Carbon Dioxide BUN Creatinine Glucose POC Glucose 136 H 123 H Hemoglobin A1c Lactic Acid Calcium Phosphorus Magnesium Ferritin AST ALT Alkaline Phosphatase Lactate Dehydrogenase Troponin T C-Reactive Protein Total Protein Albumin LDL Cholesterol Direct Urine Creatinine Urine Total Protein Salicylates Acetaminophen Crossmatch 11/29/21 11/29/21 11/29/21 18:50 18:50 20:16 WBC RBC Hgb Hct MCH RDW Plt Count Lymph % (Auto) [place] % (Auto) Lymph # (Auto) [place] # (Auto) Seg Neutrophils % Seg Neuts % (Manual) Lymphocytes % (Manual) Monocytes % (Manual) Nucleated RBC % Seg Neutrophils # Seg Neutrophils # Man Monocytes # (Manual) Eosinophils # (Manual) Basophils # (Manual) PT INR APTT D-Dimer Heparin Anti-Xa Level 0.21 L ABG pH ABG pO2 ABG HCO3 ABG O2 Saturation ABG Base Excess ABG Hemoglobin Oxyhemoglobin Sodium 126 L Potassium Chloride 86.3 L Carbon Dioxide BUN 38 H Creatinine 3.6 H Glucose 153 H POC Glucose 166 H Hemoglobin A1c Lactic Acid Calcium Phosphorus Magnesium Ferritin AST ALT Alkaline Phosphatase Lactate Dehydrogenase Troponin T C-Reactive Protein Total Protein Albumin LDL Cholesterol Direct Urine Creatinine Urine Total Protein Salicylates Acetaminophen Crossmatch 11/30/21 11/30/21 11/30/21 05:14 07:35 11:15 WBC RBC Hgb 8.7 L Hct 26.8 L MCH RDW Plt Count Lymph % (Auto) [place] % (Auto) Lymph # (Auto) [place] # (Auto) Seg Neutrophils % Seg Neuts % (Manual) Lymphocytes % (Manual) Monocytes % (Manual) Nucleated RBC % Seg Neutrophils # Seg Neutrophils # Man Monocytes # (Manual) Eosinophils # (Manual) Basophils # (Manual) PT INR APTT D-Dimer Heparin Anti-Xa Level ABG pH ABG pO2 ABG HCO3 ABG O2 Saturation ABG Base Excess ABG Hemoglobin Oxyhemoglobin Sodium Potassium Chloride Carbon Dioxide BUN Creatinine Glucose POC Glucose 114 H 119 H Hemoglobin A1c Lactic Acid Calcium Phosphorus Magnesium Ferritin AST ALT Alkaline Phosphatase Lactate Dehydrogenase Troponin T C-Reactive Protein Total Protein Albumin LDL Cholesterol Direct Urine Creatinine Urine Total Protein Salicylates Acetaminophen Crossmatch 11/30/21 11/30/21 11/30/21 15:26 17:10 18:51 WBC RBC Hgb Hct MCH RDW Plt Count Lymph % (Auto) [place] % (Auto) Lymph # (Auto) [place] # (Auto) Seg Neutrophils % Seg Neuts % (Manual) Lymphocytes % (Manual) Monocytes % (Manual) Nucleated RBC % Seg Neutrophils # Seg Neutrophils # Man Monocytes # (Manual) Eosinophils # (Manual) Basophils # (Manual) PT INR APTT D-Dimer Heparin Anti-Xa Level 0.10 L ABG pH ABG pO2 ABG HCO3 ABG O2 Saturation ABG Base Excess ABG Hemoglobin Oxyhemoglobin Sodium 126 L Potassium Chloride 86.5 L Carbon Dioxide BUN 42 H Creatinine 4.0 H Glucose 155 H POC Glucose 157 H Hemoglobin A1c Lactic Acid Calcium 8.0 L Phosphorus Magnesium Ferritin AST ALT Alkaline Phosphatase Lactate Dehydrogenase Troponin T C-Reactive Protein Total Protein Albumin LDL Cholesterol Direct Urine Creatinine Urine Total Protein Salicylates Acetaminophen Crossmatch 11/30/21 12/01/21 12/01/21 20:04 00:39 09:38 WBC 25.2 H RBC 3.06 L Hgb 8.5 L Hct 26.8 L MCH RDW 16.1 H Plt Count Lymph % (Auto) [place] % (Auto) Lymph # (Auto) [place] # (Auto) Seg Neutrophils % Seg Neuts % (Manual) 80.0 H Lymphocytes % (Manual) 9.0 L Monocytes % (Manual) Nucleated RBC % Seg Neutrophils # Seg Neutrophils # Man 20.2 H Monocytes # (Manual) 1.3 H Eosinophils # (Manual) Basophils # (Manual) PT INR APTT D-Dimer Heparin Anti-Xa Level 0.18 L ABG pH ABG pO2 ABG HCO3 ABG O2 Saturation ABG Base Excess ABG Hemoglobin Oxyhemoglobin Sodium Potassium Chloride Carbon Dioxide BUN Creatinine Glucose POC Glucose 115 H Hemoglobin A1c Lactic Acid Calcium Phosphorus Magnesium Ferritin AST ALT Alkaline Phosphatase Lactate Dehydrogenase Troponin T C-Reactive Protein Total Protein Albumin LDL Cholesterol Direct Urine Creatinine Urine Total Protein Salicylates Acetaminophen Crossmatch 12/01/21 12/01/21 12/02/21 09:38 11:35 03:22 WBC 23.3 H RBC 2.61 L Hgb 7.5 L Hct 22.8 L MCH RDW 16.1 H Plt Count Lymph % (Auto) [place] % (Auto) Lymph # (Auto) [place] # (Auto) Seg Neutrophils % Seg Neuts % (Manual) 77.0 H Lymphocytes % (Manual) 7.0 L Monocytes % (Manual) 14.0 H Nucleated RBC % Seg Neutrophils # Seg Neutrophils # Man 17.9 H Monocytes # (Manual) 3.3 H Eosinophils # (Manual) Basophils # (Manual) 0.2 H PT INR APTT D-Dimer Heparin Anti-Xa Level ABG pH ABG pO2 ABG HCO3 ABG O2 Saturation ABG Base Excess ABG Hemoglobin Oxyhemoglobin Sodium 127 L Potassium 5.1 H Chloride 87.9 L Carbon Dioxide BUN 49 H Creatinine 4.9 H Glucose 134 H POC Glucose 109 H Hemoglobin A1c Lactic Acid Calcium 7.9 L Phosphorus Magnesium Ferritin AST ALT Alkaline Phosphatase Lactate Dehydrogenase Troponin T C-Reactive Protein Total Protein Albumin LDL Cholesterol Direct Urine Creatinine Urine Total Protein Salicylates Acetaminophen Crossmatch 12/02/21 12/02/21 12/02/21 03:22 03:22 15:40 WBC RBC Hgb Hct MCH RDW Plt Count Lymph % (Auto) [place] % (Auto) Lymph # (Auto) [place] # (Auto) Seg Neutrophils % Seg Neuts % (Manual) Lymphocytes % (Manual) Monocytes % (Manual) Nucleated RBC % Seg Neutrophils # Seg Neutrophils # Man Monocytes # (Manual) Eosinophils # (Manual) Basophils # (Manual) PT INR APTT D-Dimer Heparin Anti-Xa Level 0.15 L < 0.10 L ABG pH ABG pO2 ABG HCO3 ABG O2 Saturation ABG Base Excess ABG Hemoglobin Oxyhemoglobin Sodium 129 L Potassium Chloride 91.7 L Carbon Dioxide BUN 42 H Creatinine 4.4 H Glucose POC Glucose Hemoglobin A1c Lactic Acid Calcium 8.0 L Phosphorus 5.20 H Magnesium Ferritin AST ALT Alkaline Phosphatase Lactate Dehydrogenase Troponin T C-Reactive Protein Total Protein Albumin LDL Cholesterol Direct Urine Creatinine Urine Total Protein Salicylates Acetaminophen Crossmatch 12/02/21 12/02/21 12/03/21 17:45 21:03 05:24 WBC 22.3 H RBC 2.69 L Hgb 7.4 L Hct 23.5 L MCH RDW 16.5 H Plt Count Lymph % (Auto) [place] % (Auto) Lymph # (Auto) [place] # (Auto) Seg Neutrophils % Seg Neuts % (Manual) 85.5 H Lymphocytes % (Manual) 6.0 L Monocytes % (Manual) Nucleated RBC % Seg Neutrophils # Seg Neutrophils # Man 19.1 H Monocytes # (Manual) 1.0 H Eosinophils # (Manual) 0.7 H Basophils # (Manual) PT INR APTT D-Dimer Heparin Anti-Xa Level ABG pH ABG pO2 ABG HCO3 ABG O2 Saturation ABG Base Excess ABG Hemoglobin Oxyhemoglobin Sodium Potassium Chloride Carbon Dioxide BUN Creatinine Glucose POC Glucose 122 H 121 H Hemoglobin A1c Lactic Acid Calcium Phosphorus Magnesium Ferritin AST ALT Alkaline Phosphatase Lactate Dehydrogenase Troponin T C-Reactive Protein Total Protein Albumin LDL Cholesterol Direct Urine Creatinine Urine Total Protein Salicylates Acetaminophen Crossmatch 12/03/21 12/03/21 12/03/21 08:00 11:19 15:11 WBC RBC Hgb Hct MCH RDW Plt Count Lymph % (Auto) [place] % (Auto) Lymph # (Auto) [place] # (Auto) Seg Neutrophils % Seg Neuts % (Manual) Lymphocytes % (Manual) Monocytes % (Manual) Nucleated RBC % Seg Neutrophils # Seg Neutrophils # Man Monocytes # (Manual) Eosinophils # (Manual) Basophils # (Manual) PT INR APTT D-Dimer Heparin Anti-Xa Level ABG pH ABG pO2 ABG HCO3 ABG O2 Saturation ABG Base Excess ABG Hemoglobin Oxyhemoglobin Sodium 134 L Potassium Chloride 95.9 L Carbon Dioxide BUN 30 H Creatinine 3.5 H Glucose 110 H POC Glucose 108 H 117 H Hemoglobin A1c Lactic Acid Calcium Phosphorus Magnesium Ferritin AST ALT Alkaline Phosphatase Lactate Dehydrogenase Troponin T C-Reactive Protein Total Protein Albumin LDL Cholesterol Direct Urine Creatinine Urine Total Protein Salicylates Acetaminophen Crossmatch 12/03/21 12/04/21 12/04/21 20:32 06:15 06:15 WBC 18.5 H RBC 2.88 L Hgb 8.0 L Hct 25.6 L MCH RDW 16.4 H Plt Count Lymph % (Auto) [place] % (Auto) Lymph # (Auto) [place] # (Auto) Seg Neutrophils % Seg Neuts % (Manual) 74.0 H Lymphocytes % (Manual) 11.0 L Monocytes % (Manual) 9.0 H Nucleated RBC % Seg Neutrophils # Seg Neutrophils # Man 13.7 H Monocytes # (Manual) 1.7 H Eosinophils # (Manual) Basophils # (Manual) PT INR APTT D-Dimer Heparin Anti-Xa Level ABG pH ABG pO2 ABG HCO3 ABG O2 Saturation ABG Base Excess ABG Hemoglobin Oxyhemoglobin Sodium 135 L Potassium Chloride 96.9 L Carbon Dioxide BUN 19 H Creatinine 2.8 H Glucose 102 H POC Glucose 122 H Hemoglobin A1c Lactic Acid Calcium Phosphorus Magnesium Ferritin AST ALT Alkaline Phosphatase Lactate Dehydrogenase Troponin T C-Reactive Protein Total Protein Albumin LDL Cholesterol Direct Urine Creatinine Urine Total Protein Salicylates Acetaminophen Crossmatch 12/04/21 12/04/21 12/04/21 08:14 11:17 15:58 WBC RBC Hgb Hct MCH RDW Plt Count Lymph % (Auto) [place] % (Auto) Lymph # (Auto) [place] # (Auto) Seg Neutrophils % Seg Neuts % (Manual) Lymphocytes % (Manual) Monocytes % (Manual) Nucleated RBC % Seg Neutrophils # Seg Neutrophils # Man Monocytes # (Manual) Eosinophils # (Manual) Basophils # (Manual) PT INR APTT D-Dimer Heparin Anti-Xa Level ABG pH ABG pO2 ABG HCO3 ABG O2 Saturation ABG Base Excess ABG Hemoglobin Oxyhemoglobin Sodium Potassium Chloride Carbon Dioxide BUN Creatinine Glucose POC Glucose 106 H 125 H 113 H Hemoglobin A1c Lactic Acid Calcium Phosphorus Magnesium Ferritin AST ALT Alkaline Phosphatase Lactate Dehydrogenase Troponin T C-Reactive Protein Total Protein Albumin LDL Cholesterol Direct Urine Creatinine Urine Total Protein Salicylates Acetaminophen Crossmatch Allied health notes reviewed: nursing
[2021-12-04] MEDS: HEPARIN/ 0.45% NACL DRIP 25,000 UNIT/500 ML BAG IV SCH (22:58)
[2021-12-05 05:57] LABS: Hematocrit 25.6 % (30.3-42.9); Hemoglobin 8.1 gm/dl (10.1-14.3); Mean Corpuscular HGB Conc 32 % (30-34); Mean Corpuscular Volume 89 fl (79-97); Platelet Count 313 K/mm3 (140-440); Red Blood Count 2.89 M/mm3 (3.65-5.03); Red Cell Distribution Width 16.3 % (13.2-15.2)
[2021-12-05] MEDS: GABAPENTIN 100 MG CAP PO SCH ×3 (06:05→22:39)
[2021-12-05] MEDS ORDERED: dilTIAZem 30 MG TAB PO ONE (06:10)
[2021-12-05 06:53] LABS: Band Neutrophils # (Manual) 0.4 K/mm3; Basophils % (Manual) 0 % (0.0-1.8); Myelocytes # (Manual) 0.2 K/mm3; Total Cells Counted 100
[2021-12-05 06:54] LABS: Anisocytosis 1+; Hypochromasia 1+; Platelet Estimate Consistent w Auto
[2021-12-05] MEDS: MIDODRINE 5 MG TAB PO SCH ×3 (08:14→15:57)
[2021-12-05] MEDS: INSULIN LISPRO 100 UNIT/ML SUB-Q SCH ×3 (08:18→18:18)
[2021-12-05] MEDS: CEFEPIME/NS 1 GM/100 ML 1 GM/100 ML BAG IV SCH (09:49)
[2021-12-05] MEDS: DOCUSATE SODIUM 100 MG CAP PO SCH ×2 (09:50→22:39)
[2021-12-05] MEDS: FAMOTIDINE 10 MG TAB PO SCH ×2 (09:50→22:39)
[2021-12-05] MEDS: SENNOSIDES/DOCUSATE SODIUM 8.6/50 MG TAB PO SCH ×2 (09:50→22:39)
[2021-12-05] MEDS ORDERED: AMIODARONE 360 MG in DEXTROSE 5% IN WATER 192.8 ML IV SCH ×2 (11:00→17:00)
[2021-12-05] MEDS ORDERED: AMIODARONE 150 MG in DEXTROSE 5% IN WATER 97 ML IV ONE (11:00)
--- NOTE | 2021-12-05 11:15 | Progress Note ---
Assessment and Plan Patient is a 66-year-old female with unknown past medical history brought into the ED following outside of hospital cardiac arrest thought to be PEA with thought to have downtime of 7 to 9 minutes however details are unclear S/P PEA cardiopulmonary arrest- Acute hypoxic respiratory failure-pulm following Septic shock Bacteremia Pneumonia Acute renal failure on HD-nephrology following Atrial flutter w/ RVR Pneumothorax- s/p CT Acute bilateral DVT-on Heparin gtt Hypokalemia Transaminitis Retroperitoneal Hematoma s/p IVC Echo 10/30/2021-technically difficult study due to body habitus. EF 25 to 30%. Right ventricular systolic function is normal. No pericardial effusion Plan: Previously on metoprolol 100 mg p.o. twice daily, aldactone 25mg PO QD, and losartan 25 mg p.o. daily Per documentation patient was transferred over to ICU over the weekend due to hypotension. Patient's previous medications were held and not restarted. Upon review of patient's teletypesetter monitor patient since the stopping of her medications has been in a flutter with RVR rate trending 140s. Will initiate amiodarone bolus and drip for rate control. Will also initiate metoprolol 50 mg p.o. twice daily Due to soft BP will hold previous antihypertensive medication. Will plan to initiate once patient is hemodynamically stable Patient currently anticoagulated on heparin drip Patient requires ischemic eval however due to patient's multiple other comorbidities and instability at this time unable to do as an inpatient. Will plan for outpatient ischemic eval LifeVest previously ordered for patient Patient seen in conjunction with Dr. Johnson who agrees with this plan of care - Patient Problems (1) Cardiopulmonary arrest Current Visit: Yes Status: Acute (2) Hypokalemia Current Visit: Yes Status: Acute (3) Transaminitis Current Visit: Yes Status: Acute (4) Aspiration pneumonia Current Visit: Yes Status: Acute (5) Acute hypoxemic respiratory failure Current Visit: Yes Status: Acute (6) Septic shock Current Visit: Yes Status: Acute (7) Toxic metabolic encephalopathy Current Visit: Yes Status: Acute (8) Shock liver Current Visit: Yes Status: Acute Subjective Date of service: 12/05/21 Principal diagnosis: AHRF; Cardiac arrest; R. pneumothorax; pneumonia; AMS; DVT's; SIERRA; Obesity Interval history: Patient resting in bed in no acute distress. A flutter with RVR rate trending 140s Objective Vital Signs Temp Pulse Pulse Pulse Pulse Resp Resp 12/05/21 10:00 16 12/05/21 08:18 98.5 F 146 H 18 12/05/21 08:05 142 H 142 H 110 H 16 12/05/21 06:34 140 H 12/05/21 04:00 145 H 12/05/21 03:07 98.7 F 145 H 18 12/05/21 00:00 138 H 12/04/21 22:56 98.8 F 143 H 18 12/04/21 22:50 137 H 12/04/21 22:00 135 H 17 12/04/21 21:35 135 H 12/04/21 20:00 145 H 12/04/21 19:40 98.8 F 145 H 19 12/04/21 15:56 98.5 F 50 L 18 12/04/21 11:19 98.3 F 139 H 18 BP BP Pulse Ox 12/05/21 10:00 12/05/21 08:18 122/88 99 12/05/21 08:05 98 12/05/21 06:34 120/73 12/05/21 04:00 12/05/21 03:07 120/73 99 12/05/21 00:00 12/04/21 22:56 132/81 99 12/04/21 22:50 116/66 12/04/21 22:00 97 12/04/21 21:35 116/66 12/04/21 20:00 12/04/21 19:40 123/89 99 12/04/21 15:56 154/71 94 12/04/21 11:19 108/54 97 - Physical Examination General: No Apparent Distress HEENT: Positive: EOMI, Normocephaly Neck: Positive: trachea midline. Negative: JVD/HJR Cardiac: Positive: Irregularly Regular, Tachycardia Lungs: Positive: Decreased Breath Sounds Neuro: Positive: Grossly Intact Abdomen: Positive: Soft Skin: Negative: Rash Musculoskeletal: No Pain Extremities: Present: upper extr. pulses, edema, warm - Labs and Meds CBC 12/05/21 Range/Units 05:05 WBC 19.4 H (4.5-11.0) K/mm3 RBC 2.89 L (3.65-5.03) M/mm3 Hgb 8.1 L (10.1-14.3) gm/dl Hct 25.6 L (30.3-42.9) % Plt Count 313 (140-440) K/mm3 - Imaging and Cardiology EKG: report reviewed, image reviewed Echo: report reviewed - Telemetry EKG Rhythm: Atrial Flutter - EKG Supraventricular dysrhythmia: atrial flutter Ventricular dysrhythmias: ventricular premature com Repolarization changes or abnormalities: nonspecific abnormality, ST segment, and/or T wave Myocardial infarction: septal IL (old age or ind - Allied health notes Allied health notes reviewed: nursing
[2021-12-05] MEDS: HEPARIN/ 0.45% NACL DRIP 25,000 UNIT/500 ML BAG IV SCH (11:24)
--- NOTE | 2021-12-05 11:27 | Progress Note ---
Assessment and Plan Cultures: 10/29/2021 sputum culture: Usual respiratory giorgio 10/29/2021 urine culture: No growth 10/29/2021 blood culture: No growth 11/01/2021 tracheal aspirate culture: No growth 11/10/2021 tracheal aspirate culture: Usual respiratory giorgio 11/13/2021 blood culture: No growth 11/29/2021 urine culture: Mixed giorgio 11/29/2021 blood culture: 1 out of 4 bottles positive for coag negative staph A/P: 66-year-old female past medical history obesity presented to the hospital after cardiac arrest: #Coagulase negative staph bacteremia: Likely contaminant, 1 of 4 bottles. #Acute leukocytosis: Possibly related to large subacute left-sided retroperitoneal hematoma. CT chest, abdomen and pelvis on 12/01/2021 did not reveal any other infectious etiology. #Retroperitoneal bleed #Cardiac arrest #SIERRA on HD: Renally dose medications. Recs: -will discontinue cefepime -Follow WBC trend and monitor for any fevers Simran Marcelino MD, FACP, [facility] O: [phone] F: [phone] C: [phone] Subjective Date of service: 12/05/21 Principal diagnosis: AHRF; Cardiac arrest; R. pneumothorax; pneumonia; AMS; DVT's; SIERRA; Obesity Interval history: Patient was afebrile. Having issues with rapid heart rate as per RN. No diarrhea. Patient denies any breathing difficulty. Denies abdominal pain. No diarrhea, reports some constipation. Objective - Exam Narrative Exam: Physical Exam: Constitutional: Alert, cooperative. No acute distress. Morbid obesity Head, Ears, Nose: Normocephalic, atraumatic. External ears, nose normal Eyes: Conjunctivae/corneas clear. No icterus. No ptosis. Neck: Supple, no meningeal signs Cardiovascular: S1, S2 + Respiratory: Good air entry, clear to auscultation bilaterally GI: Soft, non-tender; bowel sounds normal. No peritoneal signs Musculoskeletal: No pedal edema, no cyanosis. Skin: No rash or abscess Hem/Lymphatic: No palpable cervical or supraclavicular nodes. No lymphangitis Psych: Mood ok. Affect normal Neurological: Awake, alert, oriented. No gross abnormality - Constitutional Vitals: Vital Signs Temp Pulse Resp BP Pulse Ox 98.5 F 146 H 16 122/88 99 12/05/21 08:18 12/05/21 08:18 12/05/21 10:00 12/05/21 08:18 12/05/21 08:18 Temperature -Last 24 Hours Temperature 98.5 F Temperature 98.7 F Temperature 98.8 F Temperature 98.8 F Temperature 98.5 F - Labs CBC & Chem 7: 12/05/21 05:05 12/04/21 06:15 Labs: Abnormal lab results 12/04/21 12/04/21 12/05/21 Range/Units 15:58 20:25 05:05 WBC 19.4 H (4.5-11.0) K/mm3 RBC 2.89 L (3.65-5.03) M/mm3 Hgb 8.1 L (10.1-14.3) gm/dl Hct 25.6 L (30.3-42.9) % RDW 16.3 H (13.2-15.2) % Lymphocytes % (Manual) 13.0 L (13.4-35.0) % Monocytes % (Manual) 13.0 H (0.0-7.3) % Seg Neutrophils # Man 12.4 H (1.8-7.7) K/mm3 Monocytes # (Manual) 2.5 H (0.0-0.8) K/mm3 Eosinophils # (Manual) 0.8 H (0.0-0.4) K/mm3 POC Glucose 113 H 130 H (70-105) mg/dL 12/05/21 12/05/21 Range/Units 08:15 11:18 WBC (4.5-11.0) K/mm3 RBC (3.65-5.03) M/mm3 Hgb (10.1-14.3) gm/dl Hct (30.3-42.9) % RDW (13.2-15.2) % Lymphocytes % (Manual) (13.4-35.0) % Monocytes % (Manual) (0.0-7.3) % Seg Neutrophils # Man (1.8-7.7) K/mm3 Monocytes # (Manual) (0.0-0.8) K/mm3 Eosinophils # (Manual) (0.0-0.4) K/mm3 POC Glucose 107 H 114 H (70-105) mg/dL
--- NOTE | 2021-12-05 11:58 | Progress Note ---
Assessment and Plan Assessment and plan: Assessment and plan: This is a 66-year-old female with past medical history of HTN and Obesity admitted for septic shock, s/p cardiac arrest with ROSC in the field now intubated and on ventilatory support s/p cardiac arrest, collapse at [facility], HFrEF, shock/hypotension resolved, Atrial fibrillation/atrial flutter -Cardiac arrest and collapse at [facility] with ROSC - S/p Cardizem gtt- d/c due to low EF; now on PO Amio -s/p vasopressor support with levophed -Echocardiogram LVEF 25 to 30%, no pericardial effusion -LifeVest in place Hypotension/shock: Possible septic shock; -midodrine po -Blood pressure monitoring per protocol Spontaneous left retroperitoneal hemorrhage requiring cessation of anticoagulation. -Ultimately IVC filter was placed, but patient's DVTs continue to propagate. -There are now extensive bilateral lower extremity DVTs. -Heparin drip Fever/lung infiltrate/leukocytosis/sepsis -Possible healthcare associated pneumonia -Continue cefepime, consult ID Sepsis /Gram-positive bacteremia; -IV Vanco 1 dose, repeat cultures -Consult ID Acute kidney injury/worsening renal function likely secondary to ATN -Nephrology initiated hemodialysis, vascular consulted for Vas-Cath placement -HD per nephrology -Avoid nephrotoxic medications -Renally dose medications Severe anemia -S/p 4 units PRBC -Monitor CBC -Transfuse for hemoglobin less than 7 -Anticoagulation with heparin drip -S/p IVC filter Anemia, due to retroperitoneal bleed -D-dimer greater than 10,000 -CTA chest with no evidence of PE -Bilateral lower extremity ultrasound positive for DVT s/p IVC filter -Vascular surgery consulted, appreciate recommendations -Worsening DVT -Heparin drip Acute DVT bilateral lower extremities -Worsening DVT, Status post IVC filter placement 11/22 -On heparin drip, vascular IR following -Repeat venous duplex ultrasound on 11/21 showed progression of left peroneal DVT extending into popliteal vein. Acute hypoxic respiratory failure, right pneumothorax, Angioedema (resolved), pulmonary edema -Intubated on 10/29 and extubated on 11/11 -Pulmonary critical evaluated the patient, managed in ICU later transferred to telemetry -Bipap q HS and prn, at high risk for KOLBY with morbid obesity -s/p right chest tube for pneumothorax -s/p steroids for angioedema -On Lasix for pulmonary edema. Transaminitis likely shocked liver - resolved Shock cardiogenicsuspected sepsis -Fever was as high as 102 with a leukocytosis Blood, urine and sputum cultures negative -COVID-19 PCR negative -S/p empiric antibiotic therapy for possible pneumonia with Rocephin and azithromycin () -S/p Levophed gtt for hypotension -Fever and leukocytosis resolved -Monitor WBC and temperature curve Acute Metabolic encephalopathy, agitation/anxiety -Etiology likely from a cardiac arrest, shock and cerebral hypoperfusion CT head no acute focal parenchymal lesion in the brain -Neurology consulted, appreciate recommendations -EEG and MRI noted, Neuro recommend to cut down on sedation as possible Mental status significantly improved, currently fairly alert and oriented. Answers appropriately. Hypertension -All antihypertensives currently on hold Hyperglycemia ,resolved) -Avoid hypoglycemia -Hbg A1C 6.7 -SSI and lantus q hs (titrate as needed) -Accu-Cheks q. 6 Morbid obesity High risk for KOLBY On nightly BiPAP Deconditioning PT/OT History Interval history: 10/30: Intubated and sedated, on fentanyl gtt. Open eyes spontaneously but does not follow any commands. On vasopressors, titrate as tolerated for MAP above 65. Patient febrile overnight, continue empiric IV Abx, culture data and COVID PCR pending. Patient is also s/p CT placement due to spontaneous pneumothorax. 2D echo is pending and Cardiology is consulted. 10/31: Patient remains intubated and following commands. Levophed drip stopped and potassium repleted. Patient started on tube feeding. Remains in soft bilateral restraints. 11/01: RN noted ST changes on BSM and 12 lead EKG obtained which showed ST. Given Ativan 1mg for agitation as she is maxed on fentanyl drip and IV push fentanyl did not seem to help. Patient was started on CPAP this morning by RT but remained on fentanyl drip and was having periods of apnea. Plan was to retry CPAP again in the p.m. with sedation off. 11/02: Rate increased r/t hypercapnea on ABG, sedation reduced. Given kionex for hyperkalemia and was started on levophed overnight for hypotension. 11/03: Overnight patient had tachycardia and was given Cardizem and Lopressor. Lopressor was repeated in the a.m. due to tachycardia. Patient will be started on amiodarone with a bolus per cardiology. Patient started on normal saline per liter per [facility] and steroids for angioedema. Noted to have bright red blood when suctioned from oh ETT. Remains on heparin drip as H/H is stable for now. Will reevaluate. Fentanyl drip was restarted last night due to agitation. Dr. Flores updated family today 11/04: Patient was sedated on fentanyl however off sedation is able to follow commands, a.m. labs completed in the p.m. and show hyperkalemia with increased renal function studies. Nephrology, neurology consulted by [facility]. Given Kayexalate, insulin and D50 for hyperkalemia. Patient remains on amiodarone. 11/05: Patient needed to be sedated on fentanyl again to today. overnight krishna was replaced. Hyperkalemia->given kionex 60 for 5.6. Repeat K 6-> Dr. Grant informed and requested bumex, kionex, insulin, d50, calcium gluconate and sodium bicarb with repeat BMP in 2 hours which were placed. HR remains elevated. 11/06: Patient remained in atrial fibrillation/atrial flutter with heart rate in the 150s despite being on amnio drip and was given amnio bolus, Cardizem bolus and started on Cardizem drip by cardiology. Patient is on beta-blockers p.o. scheduled and to feedings changed to Nepro. Kayexalate was given in the morning by nephrology due to hyperkalemia. 11/07: Patient is only responsive to mild stimuli, precedex added in an attempt to wean off fentanyl gtt to better assess her mental status. Neurology also on consult, pending MRI and EEG. Patient remains in Aflutter this am, HR in the 80 to 90s, still on amiodarone and heparin gtt. 11/08: Fentanyl gtt is off, only on precedex gtt. Patient is still not following any commands. MRI brain and EEG completed. Neuro recommendations noted, sedatives agents decreased. FWF added for hypernatremia and low K repleted, repeat labs ordered. Placed a call and spoke with patient's daughter, Eva Brown . She was updated on patient's conditions and status. All questions and concerns were voiced at this time. 11/09: Patient is awake and alert this am, following commands and appropriate. Remains on precedex gtt, plan for possible PST today. Hypertensive overnight, meds adjusted by Cardio and PRN Hydralazine added for SBP greater than 160. CT dislodged overnight, CXR is stable with no significant change. F/U CXR in the am. Patient's daughter, Eva Brown, visited with patient. She was updated on patient's status and goal of care for today. All questions and concerns were voiced at this time. 11/10: Mentation remains intact, still on precedex gtt. This am CXR noted still with fluid overload s/p X1 dose of IV lasix, good response from IV lasix overnight. Hypernatremia improved, D5W d/dayday. Still with persistent hypokalemia, continue electrolytes replacement and frequent lab check. Daily IV lasix and aldactone added by Cardio. Patient is also with persistent low grade fevers overnight, leukocytosis with mild improvement this am. Will get a repeat sputum culture, hold off on IV abx for now. Consider ID consult if fevers and le ukocytosis persist. Patient tolerated PST X4hrs yesterday. PST again today, plan to wean to extubate if tolerated. 11/11: IAM overnight. Off precedex gtt and tolerated PST this am. Plan to wean to extubate today. Additional IV lasix given, plan to keep patient at a net negative balance for better lung compliance. F/U CXR in the am. K improved this am, repeat BMP this afternoon since diuresing. Remains with low grade fevers, leukocytosis downtrending, will continue to monitor. Speech/PT/OT ordered 11/12: S/p extubation, now stable on 3L NC. This am CXR noted with no significant changes, lasix changed to IV X4days BID. Drop in H&H this am, and Lt. flank ecchymosis noted. Heparin gtt on hold for now and orders placed for 1 unit of PRBCs and Ct Abd/Pelvis w/o con to r/o retroperitoneal bleed. Pending speech swallow eval, keep patient NPO for now. Patient is stable for IMCU status 11/13: Patient with increased WOB and tachycardia this am, patient was placed on Bipap and precedex gtt was resumed. CXR with mild improvement. CT Abd/Pelvis also reviewed large hematomas noted at the Lt. retroperitoneum and left posterior lateral abdominal wall. Heparin gtt is already on hold, patient is he modynamically stable. Vascular Surgery consulted for possible IVC filter eval. Patient s/p 2units of PRBCs, will continue to trend H&H and transfuse if hbg is less than 7. Worsening renal function this am, IF diuretic on hold for now. Patient is also febrile with spike in wbcs most likely reactive to bleed, will panculture and hold off on IV Abx for now. Patient also failed speech bedside swallow eval yesterday, NGT in placed plan to resume enteral nutrition 11/14: Patient had bilateral lower extremity Doppler ultrasound and vascular surgery has recommended multiphasic CT angio of the abdomen and pelvis with and without contrast if H/H drops and does not recommend IVC filter at this time as the DVTs are infrapopliteal and recommends a DVT study weekly for 2 weeks. FWF 250 q4 ml per nephro. Started on as needed Xanax and p.o. amiodarone. She did not pass her ST evaluation today. Will be transferred to CU. 11/15: Resting comfortably on encounter. Speech cleared for pureed diet. Remains on 3l satting 98 % on bedside encounter. Does not appear to be in respiratory distress. Will continue to hold AC, No ivc filter planned at this time. qweekly doppler to monitor for migration of DVT per vascular. If demonstrated, will consider IVC filter. CBC ordered for tomorrow, will continue monitoring in light of retroperitoneal hematoma. FWF increased by nephrology to 350cc q4hr d/t hypernatremia. UOP/renal function both improved. D/w cardiology, will continue amiodorone an additional 24hrs. Plan to change dosing of metoprolol. Continue to wean off of precedex. Continue xanax scheduled for anxiety. physical therapy recs noted, fernanda / ltac will discuss with CM. Continue IMCU monitoring. 11/16: Pulmonary congestion this AM. CXR ordered. Lasix 40 mg IV x 1 order this AM. Will monitor for 24 hrs. potential downgrade to medical floor tomorrow. 11/17: Persisting pulmonary congestion, was on bipap overnight into this AM. Will order additional lasix 40 mg IV x 2. CXR ordered for AM. Possible downgrade to floor tomorrow. Anticipate d/c sunday. 11/18: Patient seen and examined, continue weaning, will continue diuresis BID, discussed with daughter. 11/19: Patient seen and examined this morning doing well no acute distress noted. Lasix was increased to twice daily to 20 mg IV. Clinically improving. Patient will be transferred to telemetry today can be switched to Lasix p.o. twice daily in a.m. She has her weekly Doppler of lower extremity tomorrow vascular is following for this. She was taken off anticoagulation secondary to retroperitoneal bleed., The anticoagulation was started initially for atrial fibrillation and an infrapopliteal DVT. During her hospital stay she had a prolonged ventilator management and was successfully weaned off. She also received a total of 4 units of packed red blood cell. Hemoglobin has remained stable. Anticipate discharge in next 48 hours if continues to clinically stay stable. : Transferred from ICU on 11/19. Progressive improving. Currently awake and oriented. O2 weaned to 4 L. Hemodynamically stable. BP control being optimized. MiraLAX for constipation. Hemoglobin stable on the heparin infusion, being monitored closely with history of retroperitoneal bleed. 11/21: Patient remains mostly bedridden. She is awake and oriented on 2 L of O2. Repeat ultrasound showed extension of left peroneal DVT into popliteal vein. Heparin was discontinued for significant retroperitoneal bleed and off anticoagulation since. Vascular surgery plan for placement of IVC filter tomorrow. Patient is chest pains, palpitations, hemoptysis. She has some cough. Left lower extremity pain likely from DVT better today. Discussed with the patient, nursing staff and vascular surgery. 11/22: The infrapopliteal vein thrombosis has propagated to the left popliteal vein. Vascular surgery to perform IVC filter placement today. 11/23: Vascular surgery placed IVC filter yesterday. Continue metoprolol 100 mg p.o. twice daily, Aldactone 25 mg p.o. daily and losartan 25 mg p.o. daily. Patient still requiring BiPAP (IPAP18, EPAP8) with FiO2 of 30%. Continue to wean oxygen per pulmonary recommendations. Nurse reports patient is having vaginal bleeding. We will check serial CBC and pelvic ultrasound 11/24: I discussed with cardiology yesterday the need for a LifeVest. LifeVest is ordered and pending. Patient is s/p IVC filter placement. Continue metoprolol 100 mg p.o. twice daily, Aldactone 25 mg p.o. daily and losartan 25 mg p.o. daily. Patient still requiring BiPAP (IPAP18, EPAP8) with FiO2 of 30%. Continue to wean oxygen per pulmonary recommendations. No further reports of vaginal bleeding. Pelvic ultrasound negative 11/25: Awaiting for LifeVest. Patient is s/p IVC filter placement. Continue metoprolol 100 mg p.o. twice daily, Aldactone 25 mg p.o. daily and losartan 25 mg p.o. daily. Patient still requiring BiPAP (IPAP18, EPAP8) with FiO2 of 30%. Continue to wean oxygen per pulmonary recommendations. 11/26: Physical therapy recommends subacute rehab. Still awaiting LifeVest. Patient is s/p IVC filter placement. Continue metoprolol 100 mg p.o. twice daily, Aldactone 25 mg p.o. daily and losartan 25 mg p.o. daily. Patient still requiring BiPAP (IPAP18, EPAP8) with FiO2 of 30% at night. Continue to wean oxygen per pulmonary recommendations. Patient currently with 2 L O2. 11/27: Physical therapy recommends subacute rehab. Patient has a LifeVest. Patient's left lower extremity pain likely related to DVT. Continue pain control. Continue metoprolol 100 mg p.o. twice daily, Aldactone 25 mg p.o. daily and losartan 25 mg p.o. daily. Patient still requiring BiPAP (IPAP18, EPAP8) with FiO2 of 30% at night. 11/28: Physical therapy recommends subacute rehab. Patient has a LifeVest. Patient continues to complain of left lower extremity pain which makes it very difficult for ambulation. Continue Percocet for pain control. Add neurontin for possible neuropathy. Etiology is likely secondary to DVT. Continue metoprolol 100 mg p.o. twice daily, Aldactone 25 mg p.o. daily and losartan 25 mg p.o. daily. Patient still requiring BiPAP (IPAP18, EPAP8) with FiO2 of 30% at night. Repeated Doppler US of LLE and will ask vascular surgery to revisit. 11/29; worsening lower extremity DVTs, vascular following, on heparin drip 11/30; low-grade fever, leukocytosis, shortness of breath, chest x-ray possible left-sided pneumonia/possible healthcare associated pneumonia Blood cultures already sent, empiric antibiotic cefepime[renal dose confirmed wi th pharmacist] ID consult if needed 12/01; gram-positive bacteremia preliminary, add vancomycin 1 dose, repeat cultures, consult ID Worsening renal function, nephrology initiated hemodialysis today, patient is critically ill, very poor prognosis, with multiple comorbidities And critical issues. Fusing Machine Tender recommendations noted and appreciated 12/02; Gram positive bacteremia/possible HCAP and sepsis, on cefepime and 1 dose Vanco. Nephrology initiated hemodialysis, ID consult. Patient is hypotensive, pulmonary critical recommended transfer to ICU and start vasopressors for close observation overnight. Dr. Padron discussed with patient's daughter over patient's telephone and discussed in detail patient's condition, new developments sepsis, renal failure on hemodialysis anticoagulation for DVT and severe cardiomyopathy, also discussed poor prognosis, and the plans of transferring the patient to ICU for close observation. Many questions, and answered all of them. dr. Padron also discussed with granddaughter at the bedside and patient was moved to ICU, She had numerous questions answered all of them and discussed the current condition prognosis and treatment plan. She verbalized understanding 12/03: Patient was transferred to ICU yesterday evening for hypotension however she did not need to be started on any vasopressin therapy. Patient is on p.o. midodrine and all her antihypertensives have been held. She also received albumin bolus. Patient will be transferred to the floor today. Still complains of bilateral lower extremity pain. Patient is on cefepime and she is scheduled for dialysis today. 12/04: Some complaint of leg pain. Percocet given for pain control. Patient is very deconditioned, will need aggressive PT. Will work on d/c planning with cm. 12/05: Patient does not appear to be in distress this AM. tachycardic hr on encounter and overnight, was given diltiazem by engine mechanic. Cardiology initiated metoprolol and amiodorone on patient this morning. She denies any pain except for discomfort in left lower extremity. Controlled with percocet. She also sta lynsey that she does not have any urine output and has been constipated. Will order bowel regimen. Discharge needs discussed with CM which include Lifevest, BIPAP for nightly use, and possible set up for dialysis. She was visiting on a visa to the from [place] however is technically a citizen of [place] which makes placement a continued challenge. Hospitalist Physical - Physical exam Narrative exam: General appearance: Present: no acute distress, obese - EENT Eyes: Present: PERRL, EOM intact ENT: hearing intact, dentition normal - Neck Neck: Present: normal ROM - Respiratory Respiratory effort: normal Respiratory: bilateral: CTA - Cardiovascular Rhythm: regular Heart Sounds: Present: S1 & S2, systolic murmur, diastolic murmur - Extremities Extremities: no ischemia, pulses intact, pulses symmetrical, normal temperature, normal color Peripheral Pulses: within normal limits - Abdominal General gastrointestinal: soft, non-distended, normal bowel sounds - Integumentary Integumentary: Present: warm, dry, bruising from hematoma noted. - Psychiatric Psychiatric: cooperative - Neurologic Neurologic: CNII-XII intact, moves all extremities - Allied Health Allied health notes reviewed: nursing, RT, social work - Constitutional Vitals: Temp Pulse Resp BP Pulse Ox 98.5 F 134 H 16 101/66 99 12/05/21 08:18 12/05/21 11:31 12/05/21 10:00 12/05/21 11:31 12/05/21 08:18 General appearance: Present: no acute distress, well-nourished, obese (Morbidly obese), other HEART Score - HEART Score Troponin: Troponin T 1.150 ng/mL (0.00-0.029) H* D 10/29/21 22:34 Results - Labs CBC & Chem 7: 12/05/21 05:05 12/04/21 06:15 Labs: Laboratory Last Values WBC 19.4 K/mm3 (4.5-11.0) H 12/05/21 05:05 RBC 2.89 M/mm3 (3.65-5.03) L 12/05/21 05:05 Hgb 8.1 gm/dl (10.1-14.3) L 12/05/21 05:05 Hct 25.6 % (30.3-42.9) L 12/05/21 05:05 MCV 89 fl (79-97) 12/05/21 05:05 MCH 28 pg (28-32) 12/05/21 05:05 MCHC 32 % (30-34) 12/05/21 05:05 RDW 16.3 % (13.2-15.2) H 12/05/21 05:05 Plt Count 313 K/mm3 (140-440) 12/05/21 05:05 Lymph % (Auto) 11.1 % (13.4-35.0) L 11/29/21 13:51 [place] % (Auto) 15.5 % (0.0-7.3) H 11/29/21 13:51 Eos % (Auto) 1.0 % (0.0-4.3) 11/29/21 13:51 Baso % (Auto) 0.6 % (0.0-1.8) 11/29/21 13:51 Lymph # (Auto) 1.4 K/mm3 (1.2-5.4) 11/29/21 13:51 [place]enden # (Auto) 2.0 K/mm3 (0.0-0.8) H 11/29/21 13:51 Eos # (Auto) 0.1 K/mm3 (0.0-0.4) 11/29/21 13:51 Baso # (Auto) 0.1 K/mm3 (0.0-0.1) 11/29/21 13:51 Add Manual Diff Complete 12/05/21 05:05 Total Counted 100 12/05/21 05:05 Seg Neutrophils % 71.8 % (40.0-70.0) H 11/29/21 13:51 Seg Neuts % (Manual) 64.0 % (40.0-70.0) 12/05/21 05:05 Band Neutrophils % 2.0 % 12/05/21 05:05 Lymphocytes % (Manual) 13.0 % (13.4-35.0) L 12/05/21 05:05 Reactive Lymphs % (Man) 0 % 12/05/21 05:05 Monocytes % (Manual) 13.0 % (0.0-7.3) H 12/05/21 05:05 Eosinophils % (Manual) 4.0 % (0.0-4.3) 12/05/21 05:05 Basophils % (Manual) 0 % (0.0-1.8) 12/05/21 05:05 Metamyelocytes % 3.0 % 12/05/21 05:05 Myelocytes % 1.0 % 12/05/21 05:05 Promyelocytes % 0 % 12/05/21 05:05 Blast Cells % 0 % 12/05/21 05:05 Nucleated RBC % Not Reportable 12/05/21 05:05 Seg Neutrophils # 9.3 K/mm3 (1.8-7.7) H 11/29/21 13:51 Seg Neutrophils # Man 12.4 K/mm3 (1.8-7.7) H 12/05/21 05:05 Band Neutrophils # 0.4 K/mm3 12/05/21 05:05 Lymphocytes # (Manual) 2.5 K/mm3 (1.2-5.4) 12/05/21 05:05 Abs React Lymphs (Man) 0.0 K/mm3 12/05/21 05:05 Monocytes # (Manual) 2.5 K/mm3 (0.0-0.8) H 12/05/21 05:05 Eosinophils # (Manual) 0.8 K/mm3 (0.0-0.4) H 12/05/21 05:05 Basophils # (Manual) 0.0 K/mm3 (0.0-0.1) 12/05/21 05:05 Metamyelocytes # 0.6 K/mm3 12/05/21 05:05 Myelocytes # 0.2 K/mm3 12/05/21 05:05 Promyelocytes # 0.0 K/mm3 12/05/21 05:05 Blast Cells # 0.0 K/mm3 12/05/21 05:05 WBC Morphology Not Reportable 12/05/21 05:05 Hypersegmented Neuts Not Reportable 12/05/21 05:05 Hyposegmented Neuts Not Reportable 12/05/21 05:05 Hypogranular Neuts Not Reportable 12/05/21 05:05 Smudge Cells Not Reportable 12/05/21 05:05 Toxic Granulation Not Reportable 12/05/21 05:05 Toxic Vacuolation Not Reportable 12/05/21 05:05 Dohle Bodies Not Reportable 12/05/21 05:05 Pelger-Huet Anomaly Not Reportable 12/05/21 05:05 Manny Rods Not Reportable 12/05/21 05:05 Platelet Estimate Consistent w auto 12/05/21 05:05 Clumped Platelets Not Reportable 12/05/21 05:05 Plt Clumps, EDTA Not Reportable 12/05/21 05:05 Large Platelets Not Reportable 12/05/21 05:05 Giant Platelets Not Reportable 12/05/21 05:05 Platelet Satelliting Not Reportable 12/05/21 05:05 Plt Morphology Comment Not Reportable 12/05/21 05:05 RBC Morphology Not Reportable 12/05/21 05:05 Dimorphic RBCs Not Reportable 12/05/21 05:05 Polychromasia Not Reportable 12/05/21 05:05 Hypochromasia 1+ 12/05/21 05:05 Poikilocytosis Not Reportable 12/05/21 05:05 Anisocytosis 1+ 12/05/21 05:05 Microcytosis Not Reportable 12/05/21 05:05 Macrocytosis Not Reportable 12/05/21 05:05 Spherocytes Not Reportable 12/05/21 05:05 Pappenheimer Bodies Not Reportable 12/05/21 05:05 Sickle Cells Not Reportable 12/05/21 05:05 Target Cells Not Reportable 12/05/21 05:05 Tear Drop Cells Not Reportable 12/05/21 05:05 Ovalocytes Not Reportable 12/05/21 05:05 Helmet Cells Not Reportable 12/05/21 05:05 Maradiaga-Whitwell Bodies Not Reportable 12/05/21 05:05 Ophiem Rings Not Reportable 12/05/21 05:05 Chelsea Cells Not Reportable 12/05/21 05:05 Bite Cells Not Reportable 12/05/21 05:05 Crenated Cell Not Reportable 12/05/21 05:05 Elliptocytes Not Reportable 12/05/21 05:05 Acanthocytes (Spur) Not Reportable 12/05/21 05:05 Rouleaux Not Reportable 12/05/21 05:05 Hemoglobin C Crystals Not Reportable 12/05/21 05:05 Schistocytes Not Reportable 12/05/21 05:05 Malaria parasites Not Reportable 12/05/21 05:05 Magdy Bodies Not Reportable 12/05/21 05:05 Hem Pathologist Commnt No 12/05/21 05:05 PT 17.2 Sec. (12.2-14.9) H 10/30/21 16:30 INR 1.27 (0.87-1.13) H 10/30/21 16:30 APTT 44.4 Sec. (24.2-36.6) H 10/30/21 16:30 D-Dimer > 25356 ng/mlDDU (0-234) H 10/30/21 Unknown Heparin Anti-Xa Level 0.51 U.I./ml (0.3-0.7) 12/04/21 23:44 ABG pH 7.450 pH Units (7.350-7.450) 12/01/21 Unknown ABG pCO2 38.0 mm Hg 12/01/21 Unknown ABG pO2 88.9 mm Hg (80.0-90.0) 12/01/21 Unknown ABG HCO3 25.8 mmol/L (20.0-26.0) 12/01/21 Unknown ABG O2 Saturation 97.2 % (95.0-99.0) 12/01/21 Unknown ABG O2 Content 19.4 (0.0-44) 12/01/21 Unknown ABG Base Excess 1.9 mmol/L (-2.0-3.0) 12/01/21 Unknown ABG Hemoglobin 14.3 gm/dl (12.0-16.0) 12/01/21 Unknown ABG Carboxyhemoglobin 1.0 % (0.0-5.0) 12/01/21 Unknown ABG Methemoglobin 0.5 % (0.0-1.5) 12/01/21 Unknown Oxyhemoglobin 95.8 % (95.0-99.0) 12/01/21 Unknown FiO2 21 % 12/01/21 Unknown Sodium 135 mmol/L (137-145) L 12/04/21 06:15 Potassium 4.2 mmol/L (3.6-5.0) 12/04/21 06:15 Chloride 96.9 mmol/L (98-107) L 12/04/21 06:15 Carbon Dioxide 26 mmol/L (22-30) 12/04/21 06:15 Anion Gap 16 mmol/L 12/04/21 06:15 BUN 19 mg/dL (7-17) H 12/04/21 06:15 Creatinine 2.8 mg/dL (0.6-1.2) H 12/04/21 06:15 Estimated GFR 20 ml/min 12/04/21 06:15 BUN/Creatinine Ratio 7 % 12/04/21 06:15 Glucose 102 mg/dL (65-100) H 12/04/21 06:15 POC Glucose 114 mg/dL (70-105) H 12/05/21 11:18 Hemoglobin A1c 6.7 % (4-6) H 10/31/21 04:30 Lactic Acid 0.70 mmol/L (0.7-2.0) 10/31/21 15:45 Calcium 8.8 mg/dL (8.4-10.2) 12/04/21 06:15 Phosphorus 5.20 mg/dL (2.5-4.5) H 12/02/21 03:22 Magnesium 1.60 mg/dL (1.7-2.3) L 11/19/21 14:38 Ferritin 208.4 ng/mL (10.0-200.0) H 10/30/21 Unknown Total Bilirubin < 0.20 mg/dL (0.1-1.2) 11/06/21 02:35 AST 21 units/L (5-40) 11/06/21 02:35 ALT 77 units/L (7-56) H 11/06/21 02:35 Alkaline Phosphatase 84 units/L (35-129) 11/06/21 02:35 Ammonia 31.0 umol/L (25-60) 10/29/21 15:10 Lactate Dehydrogenase 469 units/L (91-180) H 10/30/21 Unknown Troponin T 1.150 ng/mL (0.00-0.029) H* D 10/29/21 22:34 C-Reactive Protein 13.40 mg/dL (0.00-1.30) H 10/30/21 Unknown Total Protein 6.3 g/dL (6.3-8.2) 11/06/21 02:35 Albumin 3.0 g/dL (3.9-5) L 11/06/21 02:35 Albumin/Globulin Ratio 0.9 % 11/06/21 02:35 Triglycerides 68 mg/dL (2-149) 10/29/21 19:40 Cholesterol 98 mg/dL (50-199) 10/29/21 19:40 LDL Cholesterol Direct 43 mg/dL (50-130) L 10/29/21 19:40 HDL Cholesterol 50 mg/dL (40-59) 10/29/21 19:40 Cholesterol/HDL Ratio 1.96 % 10/29/21 19:40 Procalcitonin 61.95 ng/mL (<0.15) 10/30/21 Unknown TSH 3.080 mlU/mL (0.270-4.200) 10/29/21 15:10 Urine Color Yellow (Yellow) 11/13/21 08:30 Urine Turbidity Slightly-cloudy (Clear) 11/13/21 08:30 Urine pH 6.0 (5.0-7.0) 11/13/21 08:30 Ur Specific [place] 1.010 (1.003-1.030) 11/13/21 08:30 Urine Protein <15 mg/dl mg/dL (Negative) 11/13/21 08:30 Urine Glucose (UA) Neg mg/dL (Negative) 11/13/21 08:30 Urine Ketones Tr mg/dL (Negative) 11/13/21 08:30 Urine Blood Sm (Negative) 11/13/21 08:30 Urine Nitrite Neg (Negative) 11/13/21 08:30 Urine Bilirubin Neg (Negative) 11/13/21 08:30 Urine Urobilinogen < 2.0 mg/dL (<2.0) 11/13/21 08:30 Ur Leukocyte Esterase Neg (Negative) 11/13/21 08:30 Urine WBC (Auto) < 1.0 /HPF (0.0-6.0) 11/13/21 08:30 Urine RBC (Auto) < 1.0 /HPF (0.0-6.0) 11/13/21 08:30 U Epithel Cells (Auto) < 1.0 /HPF (0-13.0) 11/13/21 08:30 Urine Mucus Few /HPF 10/29/21 18:15 Urine Eosinophils None seen (None Seen) 11/04/21 Unknown Urine Creatinine 190.9 mg/dL (0.1-20.0) H 11/04/21 Unknown Protein/Creatinin Ratio 0.90 11/04/21 Unknown Urine Sodium 10 mmol/L 11/04/21 Unknown Urine Total Protein 172 mg/dL (5-11.8) H 11/04/21 Unknown Salicylates < 0.3 mg/dL (2.8-20.0) L 10/29/21 15:10 Urine Opiates Screen Negative 10/29/21 18:15 Urine Methadone Screen Negative 10/29/21 18:15 Acetaminophen 5.0 ug/mL (10.0-30.0) L 10/29/21 15:10 Ur Barbiturates Screen Negative 10/29/21 18:15 Ur Phencyclidine Scrn Negative 10/29/21 18:15 Ur Amphetamines Screen Negative 10/29/21 18:15 U Benzodiazepines Scrn Negative 10/29/21 18:15 Urine Cocaine Screen Negative 10/29/21 18:15 U Marijuana (THC) Screen Negative 10/29/21 18:15 Drugs of Abuse Note Disclamer 10/29/21 18:15 Plasma/Serum Alcohol < 0.01 % (0-0.07) 10/29/21 15:10 Coronavirus (PCR) Negative (Negative) 10/30/21 Unknown Hepatitis A IgM Ab Non-reactive (NonReactive) 12/01/21 19:36 Hep Bs Antigen Non-reactive (Negative) 12/01/21 19:36 Hep B Core IgM Ab Non-reactive (NonReactive) 12/01/21 19:36 Hepatitis C Antibody Non-reactive (NonReactive) 12/01/21 19:36 Blood Type O POSITIVE 11/12/21 04:15 Antibody Screen Negative 11/12/21 04:15 Crossmatch See Detail 11/12/21 04:15 Microbiology: Microbiology 11/29/21 22:26 Peripheral/Venous Blood Culture - Final NO GROWTH AFTER 5 DAYS Krishna/IV: Voiding Method Incontinent Active Medications - Current Medications Current Medications: Generic Name Dose Route Start Last Admin Trade Name Freq PRN Reason Stop Dose Admin Acetaminophen 650 mg 10/29/21 17:04 11/12/21 22:53 Acetaminophen 650 Mg Rect Supp [place] 650 mg Q6H PRN Administration Pain MILD(1-3)/Fever >100.5/NIEVES Acetaminophen 650 mg 11/19/21 16:35 12/02/21 18:20 Acetaminophen 325 Mg Tab PO 650 mg Q6HR PRN Administration PAIN Albumin Human 50 gm 12/02/21 11:00 12/02/21 11:55 Albumin Human 25% (25 Gm/100 Ml) Inj IV 50 gm ZACH PRN Administration Hypotension Alprazolam 0.25 mg 11/14/21 14:29 12/03/21 23:02 Alprazolam 0.25 Mg Tab PO 0.25 mg Q8H PRN Administration Anxiety Dextrose 0 ml 11/04/21 13:48 11/12/21 05:45 Dextrose 10% *Hypoglycemia IV 50 ml PRN PRN Administration Hypoglycemia Docusate Sodium 100 mg 11/18/21 15:00 12/05/21 09:50 Docusate Sodium 100 Mg Cap PO 100 mg BID RAMON Administration Famotidine 10 mg 11/06/21 10:00 12/05/21 09:50 Famotidine 10 Mg Tab PO 10 mg BID RAMON Administration Gabapentin 100 mg 11/28/21 14:00 12/05/21 06:05 Gabapentin 100 Mg Cap PO 100 mg Q8HR RAMON Administration Heparin Sodium (Porcine) 4,000 unit 12/01/21 07:50 12/02/21 17:22 Heparin 10,000 Units/10 Ml Vial 40 unit/kg (4300 unit) 4,000 unit IV Administration Q6H PRN Anti-Xa Assay < 0.1 units/ml Hydrophilic Ointment 1 applic 10/29/21 14:29 11/09/21 08:51 Lip Therapy Vaseline TP 1 applic Q2HR PRN Administration Dry Lips Heparin Sodium/Sodium Chloride 25,000 unit in 500 mls @ 30 mls/hr 11/28/21 17:00 12/05/21 11:24 Heparin/ 0.45% Nacl-25,000 Unit/500 Ml IV 2,050 units/hr TITR RAMON 41 mls/hr Administration Protocol 1,500 UNITS/HR Sodium Chloride 100 mls @ 999 mls/hr 12/01/21 14:44 Nacl 0.9% IV ZACH PRN Hypotension Amiodarone HCl 360 mg/ 200 mls @ 33.333 mls/hr 12/05/21 11:00 12/05/21 11:09 Dextrose IV 1 mg/min DIRECT RAMON 33.333 mls/hr Administration Protocol 1 MG/MIN Insulin Human Lispro 0 unit 11/25/21 22:00 12/05/21 11:25 Insulin Lispro 100 Unit/Ml SUB-Q Not Given ACHS [facility] Protocol Lactulose 20 gm 11/18/21 14:43 11/29/21 21:20 Lactulose 20 Gm/30 Ml Oral Liqd PO 20 gm Q6H PRN Administration Constipation Melatonin 10 mg 11/22/21 17:31 11/27/21 21:32 Melatonin 5 Mg Tab PO 10 mg QHS PRN Administration Sleep Metoprolol Tartrate 50 mg 12/05/21 12:00 Metoprolol Tartrate 50 Mg Tab PO BID RAMON Midodrine 10 mg 12/01/21 12:00 12/05/21 11:09 Midodrine 5 Mg Tab PO 10 mg TID@0800,1200,1600 RAMON Administration Morphine Sulfate 1 mg 11/28/21 15:00 12/03/21 21:43 Morphine 2 Mg/1 Ml Inj IV 1 mg Q4H PRN Administration Pain, Moderate (4-6) Multi-Ingred Cream/Lotion/Oil/Oint 1 applic 10/29/21 14:29 11/06/21 09:25 Mineral Oil/Petrolatum, White Ophth Oint 3.5 Gm OU 1 applic Q4HR PRN Administration Dry Eye(s) Oxycodone/Acetaminophen 1 tab 11/27/21 14:31 12/04/21 09:09 Oxycodone /Acetaminophen 5-325mg Tab PO 1 tab Q4H PRN Administration Pain, Moderate (4-6) Polyethylene Glycol 17 gm 11/20/21 12:47 11/25/21 08:30 Polyethylene Glycol 3350 17 Gm Powder PO 17 gm QDAY PRN Administration Constipation Senna/Docusate Sodium 1 tab 11/16/21 22:00 12/05/21 09:50 Sennosides/Docusate Sodium 8.6/50 Mg Tab PO 1 tab BID RAMON Administration Sodium Chloride 10 ml 10/29/21 22:00 12/05/21 09:50 Sodium Chloride 0.9% 10 Ml Flush Syringe IV 10 ml BID RAMON Administration Sodium Chloride 10 ml 10/29/21 17:04 Sodium Chloride 0.9% 10 Ml Flush Syringe IV PRN PRN LINE FLUSH Nutrition/Malnutrition Assess - Dietary Evaluation Nutrition/Malnutrition Findings: Nutrition Notes Start: 10/30/21 09:50 Freq: Status: Active Protocol: Document 12/02/21 17:02 YOVANY (Rec: 12/02/21 17:10 YOVANY [id number]) Nutrition Notes Initial or Follow up Reassessment Current Diagnosis Acute Kidney Injury,Sepsis, Hypertension Other Pertinent Diagnosis s/p cardiac arrest, anemia Current Diet Renal mech soft Labs/Tests Na 129 BUN 42 Cr 4.4 Phos 5.2 Pertinent Medications Vasopressin gtt Height 5 ft 10 in Weight 114.8 kg Richardson Body Weight (kg) 68.18 BMI 36.3 Weight Status Obese Subjective/Other Information Pt transferred to ICU sec to hypotension. Worsening renal function; HD initiated yesterday. Pt reports poor appetite; observed numerous crackers on bedside table. Assisted pt with applesauce ( she ate 100%). Pt willing to try an ONS. She says she does not eat a lot anyway. She has consumed 25% of last 4 documented meals. Percent of energy/protein needs met: 32% energy 18% pro Burn Absent Trauma Absent Current % PO Poor (25-49%) #1 Nutrition Diagnosis Inadequate oral intake As Evidenced by Signs and Symptoms PO intake meeting <50% of energy and pro needs Diagnosis Progress(for reassessment Continues documentation) Is patient on ventilator? No Is Patient Ambulatory and/or Out of Bed No REE-([facility]-confined to bed) 2120.952 Kcal/Kg value to use for calculation 14 Approximate Energy Requirements Using 1607 kcal/Kg Calculation Used for Recommendations Kcal/kg Additional Notes Pro needs >1.2g/kg adjBW: > 110g/day Fluid needs 1-1.5L/day Nutrition Intervention Change Diet Order: Continue Renal mech soft diet Add Supplement/Snack (indicate name/kcal Nepro once daily (vanilla) /protein ) Provides kCal: 425 Provides Protein (gm) 19 Goal #1 PO intake of meals plus ONS to meet at least 75% energy and pro needs Follow-Up By: 12/05/21 Additional Comments F/U: intakes (meals, ONS), pressor support
--- NOTE | 2021-12-05 12:04 | Progress Note ---
Assessment and Plan Acute Renal Failure secondary to Ischemic ATN secondary to Sepsis, Cardiac arrest and Hypotension S/P Cardiac Arrest Acute Hypoxemic Respiratory Failure Acute DVT Sepsis CHF Anemia Hyperkalemia Hyponatremia Plan: HD today for UF only will check 24 hours creatinine clearance Anemia-KIKI as needed. Transfuse as needed Obtain daily weights Strict I/O's daily Renally dose medications Avoid nephrotoxic agents Continue to monitor renal function closely Assess dialysis needs daily Subjective Date of service: 12/05/21 Principal diagnosis: AHRF; Cardiac arrest; R. pneumothorax; pneumonia; AMS; DVT's; SIERRA; Obesity Interval history: became tachycardic, back on amio drip Objective - Vital Signs Vital signs: Vital Signs - 12hr 12/05/21 12/05/21 12/05/21 03:07 04:00 06:34 Temperature 98.7 F Pulse Rate 145 H 145 H 140 H Pulse Rate [ From Monitor] Pulse Rate [ Right Dorsalis Pedis] Pulse Rate [ Right Radial] Respiratory 18 Rate Respiratory Rate [Bilateral Lower] Blood Pressure 120/73 120/73 Blood Pressure [Left] O2 Sat by Pulse 99 Oximetry 12/05/21 12/05/21 12/05/21 08:05 08:18 10:00 Temperature 98.5 F Pulse Rate 146 H Pulse Rate [ 142 H From Monitor] Pulse Rate [ 142 H Right Dorsalis Pedis] Pulse Rate [ 110 H Right Radial] Respiratory 16 18 Rate Respiratory 16 Rate [Bilateral Lower] Blood Pressure 122/88 Blood Pressure [Left] O2 Sat by Pulse 98 99 Oximetry 12/05/21 11:31 Temperature Pulse Rate 134 H Pulse Rate [ From Monitor] Pulse Rate [ Right Dorsalis Pedis] Pulse Rate [ Right Radial] Respiratory Rate Respiratory Rate [Bilateral Lower] Blood Pressure Blood Pressure 101/66 [Left] O2 Sat by Pulse Oximetry - General Appearance General appearance: well-developed, well-nourished, obese EENT: ATNC, PERRL, mucous membranes moist Neck: no JVD, no carotid bruit Respiratory: Present: Decreased Breath Sounds Cardiology: regular, S1S2 Gastrointestinal: normoactive bowel sounds, no tenderness, no distended, no guarding Integumentary: no rash Neurologic: no focal deficit, no asterixis Musculoskeletal: other (2+ pitting edema in BLE) Psychiatric: cooperative - Lab 12/05/21 05:05 12/04/21 06:15 Most recent lab results ABG pH 7.450 pH Units (7.350-7.450) 12/01/21 Unknown ABG pCO2 38.0 mm Hg 12/01/21 Unknown ABG pO2 88.9 mm Hg (80.0-90.0) 12/01/21 Unknown ABG HCO3 25.8 mmol/L (20.0-26.0) 12/01/21 Unknown ABG O2 Saturation 97.2 % (95.0-99.0) 12/01/21 Unknown Calcium 8.8 mg/dL (8.4-10.2) 12/04/21 06:15 Phosphorus 5.20 mg/dL (2.5-4.5) H 12/02/21 03: Magnesium 1.60 mg/dL (1.7-2.3) L 11/19/21 14:38 Urine Creatinine 190.9 mg/dL (0.1-20.0) H 11/04/21 Unknown Urine Sodium 10 mmol/L 11/04/21 Unknown Urine Total Protein 172 mg/dL (5-11.8) H 11/04/21 Unknown Medications & Allergies - Medications Allergies/Adverse Reactions: Allergies No Known Allergies Allergy (Verified 10/29/21 14:01) Home Medications: Home Medications Medication Instructions Recorded Confirmed Last Taken Type Unobtainable 11/10/21 11/10/21 Unknown History Active Medications: Generic Name Dose Route Start Last Admin Trade Name Freq PRN Reason Stop Dose Admin Acetaminophen 650 mg 10/29/21 17:04 11/12/21 22:53 Acetaminophen 650 Mg Rect Supp [place] 650 mg Q6H PRN Administration Pain MILD(1-3)/Fever >100.5/NIEVES Acetaminophen 650 mg 11/19/21 16:35 12/02/21 18:20 Acetaminophen 325 Mg Tab PO 650 mg Q6HR PRN Administration PAIN Albumin Human 50 gm 12/02/21 11:00 12/02/21 11:55 Albumin Human 25% (25 Gm/100 Ml) Inj IV 50 gm ZACH PRN Administration Hypotension Alprazolam 0.25 mg 11/14/21 14:29 12/03/21 23:02 Alprazolam 0.25 Mg Tab PO 0.25 mg Q8H PRN Administration Anxiety Dextrose 0 ml 11/04/21 13:48 11/12/21 05:45 Dextrose 10% *Hypoglycemia IV 50 ml PRN PRN Administration Hypoglycemia Docusate Sodium 100 mg 11/18/21 15:00 12/05/21 09:50 Docusate Sodium 100 Mg Cap PO 100 mg BID RAMON Administration Famotidine 10 mg 11/06/21 10:00 12/05/21 09:50 Famotidine 10 Mg Tab PO 10 mg BID RAMON Administration Gabapentin 100 mg 11/28/21 14:00 12/05/21 06:05 Gabapentin 100 Mg Cap PO 100 mg Q8HR RAMON Administration Heparin Sodium (Porcine) 4,000 unit 12/01/21 07:50 12/02/21 17:22 Heparin 10,000 Units/10 Ml Vial 40 unit/kg (4300 unit) 4,000 unit IV Administration Q6H PRN Anti-Xa Assay < 0.1 units/ml Hydrophilic Ointment 1 applic 10/29/21 14:29 11/09/21 08:51 Lip Therapy Vaseline TP 1 applic Q2HR PRN Administration Dry Lips Heparin Sodium/Sodium Chloride 25,000 unit in 500 mls @ 30 mls/hr 11/28/21 17:00 12/05/21 11:24 Heparin/ 0.45% Nacl-25,000 Unit/500 Ml IV 2,050 units/hr TITR RAMON 41 mls/hr Administration Protocol 1,500 UNITS/HR Sodium Chloride 100 mls @ 999 mls/hr 12/01/21 14:44 Nacl 0.9% IV ZACH PRN Hypotension Amiodarone HCl 360 mg/ 200 mls @ 33.333 mls/hr 12/05/21 11:00 12/05/21 11:09 Dextrose IV 1 mg/min DIRECT RAMON 33.333 mls/hr Administration Protocol 1 MG/MIN Insulin Human Lispro 0 unit 11/25/21 22:00 12/05/21 11:25 Insulin Lispro 100 Unit/Ml SUB-Q Not Given ACHS [facility] Protocol Lactulose 20 gm 11/18/21 14:43 11/29/21 21:20 Lactulose 20 Gm/30 Ml Oral Liqd PO 20 gm Q6H PRN Administration Constipation Melatonin 10 mg 11/22/21 17:31 11/27/21 21:32 Melatonin 5 Mg Tab PO 10 mg QHS PRN Administration Sleep Metoprolol Tartrate 50 mg 12/05/21 12:00 Metoprolol Tartrate 50 Mg Tab PO BID RAMON Midodrine 10 mg 12/01/21 12:00 12/05/21 11:09 Midodrine 5 Mg Tab PO 10 mg TID@0800,1200,1600 RAMON Administration Morphine Sulfate 1 mg 11/28/21 15:00 12/03/21 21:43 Morphine 2 Mg/1 Ml Inj IV 1 mg Q4H PRN Administration Pain, Moderate (4-6) Multi-Ingred Cream/Lotion/Oil/Oint 1 applic 10/29/21 14:29 11/06/21 09:25 Mineral Oil/Petrolatum, White Ophth Oint 3.5 Gm OU 1 applic Q4HR PRN Administration Dry Eye(s) Oxycodone/Acetaminophen 1 tab 11/27/21 14:31 12/04/21 09:09 Oxycodone /Acetaminophen 5-325mg Tab PO 1 tab Q4H PRN Administration Pain, Moderate (4-6) Polyethylene Glycol 17 gm 11/20/21 12:47 11/25/21 08:30 Polyethylene Glycol 3350 17 Gm Powder PO 17 gm QDAY PRN Administration Constipation Senna/Docusate Sodium 1 tab 11/16/21 22:00 12/05/21 09:50 Sennosides/Docusate Sodium 8.6/50 Mg Tab PO 1 tab BID RAMON Administration Sodium Chloride 10 ml 10/29/21 22:00 12/05/21 09:50 Sodium Chloride 0.9% 10 Ml Flush Syringe IV 10 ml BID RAMON Administration Sodium Chloride 10 ml 10/29/21 17:04 Sodium Chloride 0.9% 10 Ml Flush Syringe IV PRN PRN LINE FLUSH
[2021-12-05] MEDS: oxyCODONE /ACETAMINOPHEN 5-325MG TAB PO PRN ×3 (12:09→22:39)
--- NOTE | 2021-12-05 12:41 | Progress Note ---
Assessment and Plan Acute hypoxemic respiratory failure s/p MVS Cardiac arrest with ROSC - 10/30 Echocardiogram shows left ventricular systolic function severely decreased, LVEF 25 to 30%, no pericardial effusion Acute DVT in the left posterior tibial vein and bilateral peroneal veins -CTA chest on admission with no evidence of PE Anemia- possible acute blood loss Right pneumothorax s/p pleural drain placement SIERRA Hypernatremia Altered mental status/acute encephalopathy Obesity Supportive transfusions, keep HgB>7g/dL Continue to titrate supplemental oxygen to keep SpO2 88-90% Continue accuchecks with glycemic control per SSI (While critically ill target blood glucose of 140-180 mg/dL; avoid hypoglycemia) Continue to avoid nephrotoxins, renally dose all medications Continue to avoid benzodiazepines , reduce the possibility of delirium Continue with heart failure measures Maintenance of sleep-wake cycle, avoid delirium Continue mobility, frequent turning and off loading for pressure ulcer prevention Monitor hemodynamics closely Awaiting life vest, perm cath placement and outpatient HD Home oxygen and PAP Discharge planning per primary service continue other care per attending / other consultants COVID SPECIFIC INTERVENTIONS - COVID-19 PCR negative CONDITION: FAIR PROGNOSIS: FAIR CODE STATUS: FULL CODE Subjective Date of service: 12/05/21 Principal diagnosis: AHRF; Cardiac arrest; R. pneumothorax; pneumonia; AMS; DVT's; SIERRA; Obesity Interval history: Patient is seen today for: Acute hypoxemic respiratory failure; Cardiac arrest with ROSC; Right pneumothorax; pneumonia; AMS; bilateral DVT's; SIERRA; Obesity Seen and examined at bedside; 24hour events reviewed; nursing and respiratory care staff consulted; no adverse overnight events reported to me; resting in bed; remains on supplemental oxygen, tolerating HD; denies N/V/F/C Objective Vital Signs - 12hr 12/05/21 12/05/21 12/05/21 03:07 04:00 06:34 Temperature 98.7 F Pulse Rate 145 H 145 H 140 H Pulse Rate [ From Monitor] Pulse Rate [ Right Dorsalis Pedis] Pulse Rate [ Right Radial] Respiratory 18 Rate Respiratory Rate [Bilateral Lower] Blood Pressure 120/73 120/73 Blood Pressure [Left] O2 Sat by Pulse 99 Oximetry 12/05/21 12/05/21 12/05/21 08:05 08:18 10:00 Temperature 98.5 F Pulse Rate 146 H Pulse Rate [ 142 H From Monitor] Pulse Rate [ 142 H Right Dorsalis Pedis] Pulse Rate [ 110 H Right Radial] Respiratory 16 18 Rate Respiratory 16 Rate [Bilateral Lower] Blood Pressure 122/88 Blood Pressure [Left] O2 Sat by Pulse 98 99 Oximetry 12/05/21 11:31 Temperature Pulse Rate 134 H Pulse Rate [ From Monitor] Pulse Rate [ Right Dorsalis Pedis] Pulse Rate [ Right Radial] Respiratory Rate Respiratory Rate [Bilateral Lower] Blood Pressure Blood Pressure 101/66 [Left] O2 Sat by Pulse Oximetry Constitutional: no acute distress, alert, other (elderly obese female with mildly increased respiratory effort at rest ) Eyes: non-icteric ENT: oropharynx moist Neck: supple, no lymphadenopathy, no JVD, other (large circumference) Effort: mildly labored Ascultation: Bilateral: diminished breath sounds, rhonchi (bases) Percussion: Bilateral: not dull Cardiovascular: regular rate and rhythm, other (no R/M) Gastrointestinal: normoactive bowel sounds, soft, non-tender, other (obese) Integumentary: normal, other (Left flank ecchymosis with induration) Extremities: no cyanosis, pulses normal, no ischemia or petechiae, edema (2+) Neurologic: normal mental status, non-focal exam (grossly), pupils equal and round, motor strength normal and (weak) Psychiatric: mood appropriate, affect normal CBC and BMP: 12/06/21 04:36 12/07/21 06:11 ABG, PT/INR, D-dimer: ABG ABG pH 7.450 pH Units (7.350-7.450) 12/01/21 Unknown ABG pCO2 38.0 mm Hg 12/01/21 Unknown ABG pO2 88.9 mm Hg (80.0-90.0) 12/01/21 Unknown ABG O2 Saturation 97.2 % (95.0-99.0) 12/01/21 Unknown PT/INR, D-dimer PT 17.2 Sec. (12.2-14.9) H 10/30/21 16:30 INR 1.27 (0.87-1.13) H 10/30/21 16:30 D-Dimer > 45958 ng/mlDDU (0-234) H 10/30/21 Unknown Abnormal lab findings: Abnormal Labs 10/29/21 10/29/21 10/29/21 15:10 15:10 15:10 WBC 27.8 H RBC Hgb Hct MCH 27 L RDW Plt Count Lymph % (Auto) Mcd[place] % (Auto) Lymph # (Auto) [place]cd[place] # (Auto) Seg Neutrophils % Seg Neuts % (Manual) 78.0 H Lymphocytes % (Manual) 10.0 L Monocytes % (Manual) Nucleated RBC % Seg Neutrophils # Seg Neutrophils # Man 21.7 H Monocytes # (Manual) 1.4 H Eosinophils # (Manual) Basophils # (Manual) PT INR APTT D-Dimer Heparin Anti-Xa Level ABG pH ABG pO2 ABG HCO3 ABG O2 Saturation ABG Base Excess ABG Hemoglobin Oxyhemoglobin Sodium Potassium Chloride Carbon Dioxide BUN Creatinine Glucose POC Glucose Hemoglobin A1c Lactic Acid 6.80 H* Calcium Phosphorus Magnesium Ferritin AST ALT Alkaline Phosphatase Lactate Dehydrogenase Troponin T 0.089 H C-Reactive Protein Total Protein Albumin LDL Cholesterol Direct Urine Creatinine Urine Total Protein Salicylates Acetaminophen Crossmatch 10/29/21 10/29/21 10/29/21 15:10 15:10 15:10 WBC RBC Hgb Hct MCH RDW Plt Count Lymph % (Auto) [place] % (Auto) Lymph # (Auto) [place] # (Auto) Seg Neutrophils % Seg Neuts % (Manual) Lymphocytes % (Manual) Monocytes % (Manual) Nucleated RBC % Seg Neutrophils # Seg Neutrophils # Man Monocytes # (Manual) Eosinophils # (Manual) Basophils # (Manual) PT INR APTT D-Dimer Heparin Anti-Xa Level ABG pH ABG pO2 ABG HCO3 ABG O2 Saturation ABG Base Excess ABG Hemoglobin Oxyhemoglobin Sodium 136 L Potassium 2.8 L* Chloride 93.4 L Carbon Dioxide 20 L BUN Creatinine Glucose 330 H POC Glucose Hemoglobin A1c Lactic Acid Calcium Phosphorus Magnesium Ferritin AST 1013 H ALT 1289 H Alkaline Phosphatase 246 H Lactate Dehydrogenase Troponin T C-Reactive Protein Total Protein Albumin LDL Cholesterol Direct Urine Creatinine Urine Total Protein Salicylates < 0.3 L Acetaminophen 5.0 L Crossmatch 10/29/21 10/29/21 10/29/21 15:11 16:01 19:29 WBC RBC Hgb Hct MCH RDW Plt Count Lymph % (Auto) [place] % (Auto) Lymph # (Auto) [place] # (Auto) Seg Neutrophils % Seg Neuts % (Manual) Lymphocytes % (Manual) Monocytes % (Manual) Nucleated RBC % Seg Neutrophils # Seg Neutrophils # Man Monocytes # (Manual) Eosinophils # (Manual) Basophils # (Manual) PT INR APTT D-Dimer Heparin Anti-Xa Level ABG pH 7.307 L ABG pO2 64.1 L ABG HCO3 ABG O2 Saturation 90.8 L ABG Base Excess -2.9 L ABG Hemoglobin Oxyhemoglobin 89.3 L Sodium Potassium Chloride Carbon Dioxide BUN Creatinine Glucose POC Glucose Hemoglobin A1c Lactic Acid 2.60 H* Calcium Phosphorus Magnesium 2.90 H Ferritin AST ALT Alkaline Phosphatase Lactate Dehydrogenase Troponin T C-Reactive Protein Total Protein Albumin LDL Cholesterol Direct Urine Creatinine Urine Total Protein Salicylates Acetaminophen Crossmatch 10/29/21 10/29/21 10/30/21 19:40 22:34 04:30 WBC 16.2 H RBC Hgb Hct MCH 26 L RDW 15.5 H Plt Count Lymph % (Auto) 6.2 L [place]cd[place] % (Auto) Lymph # (Auto) 1.0 L [place] # (Auto) 0.9 H Seg Neutrophils % 88.1 H Seg Neuts % (Manual) Lymphocytes % (Manual) Monocytes % (Manual) Nucleated RBC % Seg Neutrophils # 14.2 H Seg Neutrophils # Man Monocytes # (Manual) Eosinophils # (Manual) Basophils # (Manual) PT INR APTT D-Dimer Heparin Anti-Xa Level ABG pH ABG pO2 ABG HCO3 ABG O2 Saturation ABG Base Excess ABG Hemoglobin Oxyhemoglobin Sodium Potassium Chloride Carbon Dioxide BUN Creatinine Glucose POC Glucose Hemoglobin A1c Lactic Acid Calcium Phosphorus Magnesium Ferritin AST ALT Alkaline Phosphatase Lactate Dehydrogenase Troponin T 1.950 H* D 1.150 H* D C-Reactive Protein Total Protein Albumin LDL Cholesterol Direct 43 L Urine Creatinine Urine Total Protein Salicylates Acetaminophen Crossmatch 10/30/21 10/30/21 10/30/21 04:30 04:35 05:45 WBC RBC Hgb Hct MCH RDW Plt Count Lymph % (Auto) [place] % (Auto) Lymph # (Auto) [place] # (Auto) Seg Neutrophils % Seg Neuts % (Manual) Lymphocytes % (Manual) Monocytes % (Manual) Nucleated RBC % Seg Neutrophils # Seg Neutrophils # Man Monocytes # (Manual) Eosinophils # (Manual) Basophils # (Manual) PT INR APTT D-Dimer Heparin Anti-Xa Level ABG pH ABG pO2 69.5 L ABG HCO3 ABG O2 Saturation ABG Base Excess -2.7 L ABG Hemoglobin Oxyhemoglobin 94.7 L Sodium Potassium Chloride Carbon Dioxide 21 L BUN Creatinine Glucose 159 H POC Glucose 151 H Hemoglobin A1c Lactic Acid Calcium 7.9 L D Phosphorus Magnesium Ferritin AST 461 H ALT 686 H Alkaline Phosphatase 130 H Lactate Dehydrogenase Troponin T C-Reactive Protein Total Protein 5.6 L D Albumin 3.2 L LDL Cholesterol Direct Urine Creatinine Urine Total Protein Salicylates Acetaminophen Crossmatch 10/30/21 10/30/21 10/30/21 11:24 15:59 16:30 WBC RBC Hgb Hct MCH RDW Plt Count Lymph % (Auto) [place] % (Auto) Lymph # (Auto) [place] # (Auto) Seg Neutrophils % Seg Neuts % (Manual) Lymphocytes % (Manual) Monocytes % (Manual) Nucleated RBC % Seg Neutrophils # Seg Neutrophils # Man Monocytes # (Manual) Eosinophils # (Manual) Basophils # (Manual) PT 17.2 H INR 1.27 H APTT 44.4 H D-Dimer Heparin Anti-Xa Level ABG pH ABG pO2 ABG HCO3 ABG O2 Saturation ABG Base Excess ABG Hemoglobin Oxyhemoglobin Sodium Potassium Chloride Carbon Dioxide BUN Creatinine Glucose POC Glucose 153 H 109 H Hemoglobin A1c Lactic Acid Calcium Phosphorus Magnesium Ferritin AST ALT Alkaline Phosphatase Lactate Dehydrogenase Troponin T C-Reactive Protein Total Protein Albumin LDL Cholesterol Direct Urine Creatinine Urine Total Protein Salicylates Acetaminophen Crossmatch 10/30/21 10/30/21 10/30/21 23:00 Unknown Unknown WBC RBC Hgb Hct MCH RDW Plt Count Lymph % (Auto) [place] % (Auto) Lymph # (Auto) [place] # (Auto) Seg Neutrophils % Seg Neuts % (Manual) Lymphocytes % (Manual) Monocytes % (Manual) Nucleated RBC % Seg Neutrophils # Seg Neutrophils # Man Monocytes # (Manual) Eosinophils # (Manual) Basophils # (Manual) PT INR APTT D-Dimer > 97223 H Heparin Anti-Xa Level 0.82 H ABG pH ABG pO2 ABG HCO3 ABG O2 Saturation ABG Base Excess ABG Hemoglobin Oxyhemoglobin Sodium Potassium Chloride Carbon Dioxide BUN Creatinine Glucose POC Glucose Hemoglobin A1c Lactic Acid Calcium Phosphorus Magnesium Ferritin 208.4 H AST ALT Alkaline Phosphatase Lactate Dehydrogenase Troponin T C-Reactive Protein Total Protein Albumin LDL Cholesterol Direct Urine Creatinine Urine Total Protein Salicylates Acetaminophen Crossmatch 10/30/21 10/31/21 10/31/21 Unknown 04:30 04:30 WBC 14.4 H RBC Hgb Hct MCH 26 L RDW Plt Count Lymph % (Auto) [place] % (Auto) Lymph # (Auto) [place] # (Auto) Seg Neutrophils % Seg Neuts % (Manual) Lymphocytes % (Manual) Monocytes % (Manual) Nucleated RBC % Seg Neutrophils # Seg Neutrophils # Man Monocytes # (Manual) Eosinophils # (Manual) Basophils # (Manual) PT INR APTT D-Dimer Heparin Anti-Xa Level ABG pH ABG pO2 ABG HCO3 ABG O2 Saturation ABG Base Excess ABG Hemoglobin Oxyhemoglobin Sodium Potassium 3.5 L Chloride 107.5 H Carbon Dioxide 20 L BUN 28 H Creatinine 1.7 H Glucose 113 H POC Glucose Hemoglobin A1c Lactic Acid Calcium 7.9 L Phosphorus Magnesium Ferritin AST ALT Alkaline Phosphatase Lactate Dehydrogenase 469 H Troponin T C-Reactive Protein 13.40 H Total Protein Albumin LDL Cholesterol Direct Urine Creatinine Urine Total Protein Salicylates Acetaminophen Crossmatch 10/31/21 10/31/21 10/31/21 04:30 05:11 15:30 WBC RBC Hgb Hct MCH RDW Plt Count Lymph % (Auto) [place] % (Auto) Lymph # (Auto) [place] # (Auto) Seg Neutrophils % Seg Neuts % (Manual) Lymphocytes % (Manual) Monocytes % (Manual) Nucleated RBC % Seg Neutrophils # Seg Neutrophils # Man Monocytes # (Manual) Eosinophils # (Manual) Basophils # (Manual) PT INR APTT D-Dimer Heparin Anti-Xa Level ABG pH 7.222 L ABG pO2 61.5 L ABG HCO3 ABG O2 Saturation 86.2 L ABG Base Excess -6.3 L ABG Hemoglobin 11.2 L Oxyhemoglobin 84.5 L Sodium Potassium Chloride Carbon Dioxide BUN Creatinine Glucose POC Glucose 106 H Hemoglobin A1c 6.7 H Lactic Acid Calcium Phosphorus Magnesium Ferritin AST ALT Alkaline Phosphatase Lactate Dehydrogenase Troponin T C-Reactive Protein Total Protein Albumin LDL Cholesterol Direct Urine Creatinine Urine Total Protein Salicylates Acetaminophen Crossmatch 10/31/21 10/31/21 10/31/21 16:07 16:35 17:45 WBC RBC Hgb Hct MCH RDW Plt Count Lymph % (Auto) [place] % (Auto) Lymph # (Auto) [place] # (Auto) Seg Neutrophils % Seg Neuts % (Manual) Lymphocytes % (Manual) Monocytes % (Manual) Nucleated RBC % Seg Neutrophils # Seg Neutrophils # Man Monocytes # (Manual) Eosinophils # (Manual) Basophils # (Manual) PT INR APTT D-Dimer Heparin Anti-Xa Level ABG pH 7.267 L ABG pO2 58.3 L ABG HCO3 ABG O2 Saturation 88.3 L ABG Base Excess -5.9 L ABG Hemoglobin 10.1 L Oxyhemoglobin 86.5 L Sodium Potassium Chloride Carbon Dioxide BUN Creatinine Glucose POC Glucose 115 H Hemoglobin A1c Lactic Acid Calcium Phosphorus Magnesium Ferritin AST ALT Alkaline Phosphatase Lactate Dehydrogenase Troponin T C-Reactive Protein Total Protein Albumin LDL Cholesterol Direct Urine Creatinine 383.6 H Urine Total Protein Salicylates Acetaminophen Crossmatch 11/01/21 11/01/21 11/01/21 00:06 05:08 06:00 WBC 12.6 H RBC 3.43 L Hgb 8.9 L Hct 28.7 L MCH 26 L RDW 15.7 H Plt Count 130 L Lymph % (Auto) [place]cd[place] % (Auto) Lymph # (Auto) [place] # (Auto) Seg Neutrophils % Seg Neuts % (Manual) Lymphocytes % (Manual) Monocytes % (Manual) Nucleated RBC % Seg Neutrophils # Seg Neutrophils # Man Monocytes # (Manual) Eosinophils # (Manual) Basophils # (Manual) PT INR APTT D-Dimer Heparin Anti-Xa Level ABG pH ABG pO2 ABG HCO3 ABG O2 Saturation ABG Base Excess ABG Hemoglobin Oxyhemoglobin Sodium Potassium Chloride Carbon Dioxide BUN Creatinine Glucose POC Glucose 114 H 120 H Hemoglobin A1c Lactic Acid Calcium Phosphorus Magnesium Ferritin AST ALT Alkaline Phosphatase Lactate Dehydrogenase Troponin T C-Reactive Protein Total Protein Albumin LDL Cholesterol Direct Urine Creatinine Urine Total Protein Salicylates Acetaminophen Crossmatch 11/01/21 11/01/21 11/01/21 06:00 11:43 14:00 WBC RBC Hgb Hct MCH RDW Plt Count Lymph % (Auto) [place] % (Auto) Lymph # (Auto) [place] # (Auto) Seg Neutrophils % Seg Neuts % (Manual) Lymphocytes % (Manual) Monocytes % (Manual) Nucleated RBC % Seg Neutrophils # Seg Neutrophils # Man Monocytes # (Manual) Eosinophils # (Manual) Basophils # (Manual) PT INR APTT D-Dimer Heparin Anti-Xa Level ABG pH 7.349 L ABG pO2 75.6 L ABG HCO3 ABG O2 Saturation ABG Base Excess -3.9 L ABG Hemoglobin 9.8 L Oxyhemoglobin 93.5 L Sodium Potassium Chloride 114.1 H Carbon Dioxide 20 L BUN 33 H Creatinine Glucose 131 H POC Glucose 151 H Hemoglobin A1c Lactic Acid Calcium 7.7 L Phosphorus Magnesium Ferritin AST 79 H ALT 259 H Alkaline Phosphatase Lactate Dehydrogenase Troponin T C-Reactive Protein Total Protein 5.5 L Albumin 2.7 L LDL Cholesterol Direct Urine Creatinine Urine Total Protein Salicylates Acetaminophen Crossmatch 11/01/21 11/01/21 11/02/21 16:45 22:55 05:12 WBC RBC Hgb Hct MCH RDW Plt Count Lymph % (Auto) [place] % (Auto) Lymph # (Auto) [place] # (Auto) Seg Neutrophils % Seg Neuts % (Manual) Lymphocytes % (Manual) Monocytes % (Manual) Nucleated RBC % Seg Neutrophils # Seg Neutrophils # Man Monocytes # (Manual) Eosinophils # (Manual) Basophils # (Manual) PT INR APTT D-Dimer Heparin Anti-Xa Level ABG pH ABG pO2 ABG HCO3 ABG O2 Saturation ABG Base Excess ABG Hemoglobin Oxyhemoglobin Sodium Potassium Chloride Carbon Dioxide BUN Creatinine Glucose POC Glucose 119 H 129 H 140 H Hemoglobin A1c Lactic Acid Calcium Phosphorus Magnesium Ferritin AST ALT Alkaline Phosphatase Lactate Dehydrogenase Troponin T C-Reactive Protein Total Protein Albumin LDL Cholesterol Direct Urine Creatinine Urine Total Protein Salicylates Acetaminophen Crossmatch 11/02/21 11/02/21 11/02/21 05:35 05:35 09:35 WBC 13.5 H RBC 3.60 L Hgb 9.7 L Hct MCH 27 L RDW 15.7 H Plt Count Lymph % (Auto) [place] % (Auto) Lymph # (Auto) [place] # (Auto) Seg Neutrophils % Seg Neuts % (Manual) Lymphocytes % (Manual) Monocytes % (Manual) Nucleated RBC % Seg Neutrophils # Seg Neutrophils # Man Monocytes # (Manual) Eosinophils # (Manual) Basophils # (Manual) PT INR APTT D-Dimer Heparin Anti-Xa Level ABG pH 7.208 L ABG pO2 75.9 L ABG HCO3 ABG O2 Saturation 93.6 L ABG Base Excess -4.3 L ABG Hemoglobin 9.1 L Oxyhemoglobin 91.6 L Sodium Potassium 5.2 H D Chloride 112.6 H Carbon Dioxide BUN 32 H Creatinine Glucose 152 H POC Glucose Hemoglobin A1c Lactic Acid Calcium 8.2 L Phosphorus Magnesium 2.70 H Ferritin AST ALT Alkaline Phosphatase Lactate Dehydrogenase Troponin T C-Reactive Protein Total Protein Albumin LDL Cholesterol Direct Urine Creatinine Urine Total Protein Salicylates Acetaminophen Crossmatch 11/02/21 11/02/21 11/02/21 11:44 17:13 23:43 WBC RBC Hgb Hct MCH RDW Plt Count Lymph % (Auto) [place] % (Auto) Lymph # (Auto) [place] # (Auto) Seg Neutrophils % Seg Neuts % (Manual) Lymphocytes % (Manual) Monocytes % (Manual) Nucleated RBC % Seg Neutrophils # Seg Neutrophils # Man Monocytes # (Manual) Eosinophils # (Manual) Basophils # (Manual) PT INR APTT D-Dimer Heparin Anti-Xa Level ABG pH ABG pO2 ABG HCO3 ABG O2 Saturation ABG Base Excess ABG Hemoglobin Oxyhemoglobin Sodium Potassium Chloride Carbon Dioxide BUN Creatinine Glucose POC Glucose 173 H 148 H 137 H Hemoglobin A1c Lactic Acid Calcium Phosphorus Magnesium Ferritin AST ALT Alkaline Phosphatase Lactate Dehydrogenase Troponin T C-Reactive Protein Total Protein Albumin LDL Cholesterol Direct Urine Creatinine Urine Total Protein Salicylates Acetaminophen Crossmatch 11/03/21 11/03/21 11/03/21 04:59 06:00 06:00 WBC RBC 3.43 L Hgb 9.1 L Hct 29.0 L MCH 26 L RDW 16.4 H Plt Count Lymph % (Auto) [place] % (Auto) Lymph # (Auto) [place] # (Auto) Seg Neutrophils % Seg Neuts % (Manual) Lymphocytes % (Manual) Monocytes % (Manual) Nucleated RBC % Seg Neutrophils # Seg Neutrophils # Man Monocytes # (Manual) Eosinophils # (Manual) Basophils # (Manual) PT INR APTT D-Dimer Heparin Anti-Xa Level 0.17 L ABG pH ABG pO2 ABG HCO3 ABG O2 Saturation ABG Base Excess ABG Hemoglobin Oxyhemoglobin Sodium Potassium Chloride Carbon Dioxide BUN Creatinine Glucose POC Glucose 167 H Hemoglobin A1c Lactic Acid Calcium Phosphorus Magnesium Ferritin AST ALT Alkaline Phosphatase Lactate Dehydrogenase Troponin T C-Reactive Protein Total Protein Albumin LDL Cholesterol Direct Urine Creatinine Urine Total Protein Salicylates Acetaminophen Crossmatch 11/03/21 11/03/21 11/03/21 06:00 09:20 11:58 WBC RBC Hgb Hct MCH RDW Plt Count Lymph % (Auto) [place] % (Auto) Lymph # (Auto) [place] # (Auto) Seg Neutrophils % Seg Neuts % (Manual) Lymphocytes % (Manual) Monocytes % (Manual) Nucleated RBC % Seg Neutrophils # Seg Neutrophils # Man Monocytes # (Manual) Eosinophils # (Manual) Basophils # (Manual) PT INR APTT D-Dimer Heparin Anti-Xa Level ABG pH 7.274 L ABG pO2 75.6 L ABG HCO3 ABG O2 Saturation 94.9 L ABG Base Excess -2.5 L ABG Hemoglobin 9.3 L Oxyhemoglobin 92.9 L Sodium 149 H Potassium Chloride 117.5 H Carbon Dioxide BUN 32 H Creatinine Glucose 173 H POC Glucose 192 H Hemoglobin A1c Lactic Acid Calcium 8.1 L Phosphorus Magnesium Ferritin AST ALT Alkaline Phosphatase Lactate Dehydrogenase Troponin T C-Reactive Protein Total Protein Albumin LDL Cholesterol Direct Urine Creatinine Urine Total Protein Salicylates Acetaminophen Crossmatch 11/03/21 11/03/21 11/04/21 18:22 Unknown 00:09 WBC RBC Hgb Hct MCH RDW Plt Count Lymph % (Auto) [place] % (Auto) Lymph # (Auto) [place] # (Auto) Seg Neutrophils % Seg Neuts % (Manual) Lymphocytes % (Manual) Monocytes % (Manual) Nucleated RBC % Seg Neutrophils # Seg Neutrophils # Man Monocytes # (Manual) Eosinophils # (Manual) Basophils # (Manual) PT INR APTT D-Dimer Heparin Anti-Xa Level 0.29 L ABG pH ABG pO2 ABG HCO3 ABG O2 Saturation ABG Base Excess ABG Hemoglobin Oxyhemoglobin Sodium Potassium Chloride Carbon Dioxide BUN Creatinine Glucose POC Glucose 178 H 221 H Hemoglobin A1c Lactic Acid Calcium Phosphorus Magnesium Ferritin AST ALT Alkaline Phosphatase Lactate Dehydrogenase Troponin T C-Reactive Protein Total Protein Albumin LDL Cholesterol Direct Urine Creatinine Urine Total Protein Salicylates Acetaminophen Crossmatch 11/04/21 11/04/21 11/04/21 05:09 09:40 09:40 WBC 16.8 H RBC Hgb Hct MCH 27 L RDW 16.5 H Plt Count Lymph % (Auto) [place] % (Auto) Lymph # (Auto) [place] # (Auto) Seg Neutrophils % Seg Neuts % (Manual) Lymphocytes % (Manual) Monocytes % (Manual) Nucleated RBC % Seg Neutrophils # Seg Neutrophils # Man Monocytes # (Manual) Eosinophils # (Manual) Basophils # (Manual) PT INR APTT D-Dimer Heparin Anti-Xa Level ABG pH ABG pO2 ABG HCO3 ABG O2 Saturation ABG Base Excess ABG Hemoglobin Oxyhemoglobin Sodium Potassium 5.9 H Chloride 108.5 H Carbon Dioxide BUN 54 H Creatinine 1.8 H Glucose 198 H POC Glucose 182 H Hemoglobin A1c Lactic Acid Calcium Phosphorus Magnesium 3.00 H Ferritin AST ALT Alkaline Phosphatase Lactate Dehydrogenase Troponin T C-Reactive Protein Total Protein Albumin LDL Cholesterol Direct Urine Creatinine Urine Total Protein Salicylates Acetaminophen Crossmatch 11/04/21 11/04/21 11/04/21 12:13 13:34 14:05 WBC RBC Hgb Hct MCH RDW Plt Count Lymph % (Auto) [place] % (Auto) Lymph # (Auto) [place] # (Auto) Seg Neutrophils % Seg Neuts % (Manual) Lymphocytes % (Manual) Monocytes % (Manual) Nucleated RBC % Seg Neutrophils # Seg Neutrophils # Man Monocytes # (Manual) Eosinophils # (Manual) Basophils # (Manual) PT INR APTT D-Dimer Heparin Anti-Xa Level ABG pH 7.223 L ABG pO2 71.3 L ABG HCO3 ABG O2 Saturation 92.8 L ABG Base Excess ABG Hemoglobin 8.2 L Oxyhemoglobin 91.0 L Sodium Potassium Chloride Carbon Dioxide BUN Creatinine Glucose POC Glucose 184 H Hemoglobin A1c Lactic Acid Calcium Phosphorus Magnesium Ferritin AST ALT Alkaline Phosphatase Lactate Dehydrogenase Troponin T C-Reactive Protein Total Protein Albumin LDL Cholesterol Direct Urine Creatinine 184.6 H Urine Total Protein Salicylates Acetaminophen Crossmatch 11/04/21 11/04/21 11/05/21 18:02 Unknown 00:07 WBC RBC Hgb Hct MCH RDW Plt Count Lymph % (Auto) [place] % (Auto) Lymph # (Auto) [place] # (Auto) Seg Neutrophils % Seg Neuts % (Manual) Lymphocytes % (Manual) Monocytes % (Manual) Nucleated RBC % Seg Neutrophils # Seg Neutrophils # Man Monocytes # (Manual) Eosinophils # (Manual) Basophils # (Manual) PT INR APTT D-Dimer Heparin Anti-Xa Level ABG pH ABG pO2 ABG HCO3 ABG O2 Saturation ABG Base Excess ABG Hemoglobin Oxyhemoglobin Sodium Potassium Chloride Carbon Dioxide BUN Creatinine Glucose POC Glucose 262 H 259 H Hemoglobin A1c Lactic Acid Calcium Phosphorus Magnesium Ferritin AST ALT Alkaline Phosphatase Lactate Dehydrogenase Troponin T C-Reactive Protein Total Protein Albumin LDL Cholesterol Direct Urine Creatinine 190.9 H Urine Total Protein 172 H Salicylates Acetaminophen Crossmatch 11/05/21 11/05/21 11/05/21 04:20 04:20 05:30 WBC 17.9 H RBC 3.64 L Hgb 9.7 L Hct MCH 27 L RDW 16.4 H Plt Count Lymph % (Auto) [place] % (Auto) Lymph # (Auto) [place] # (Auto) Seg Neutrophils % Seg Neuts % (Manual) Lymphocytes % (Manual) Monocytes % (Manual) Nucleated RBC % Seg Neutrophils # Seg Neutrophils # Man Monocytes # (Manual) Eosinophils # (Manual) Basophils # (Manual) PT INR APTT D-Dimer Heparin Anti-Xa Level ABG pH ABG pO2 ABG HCO3 ABG O2 Saturation ABG Base Excess ABG Hemoglobin Oxyhemoglobin Sodium Potassium 5.6 H Chloride 108.4 H Carbon Dioxide BUN 71 H Creatinine 1.9 H Glucose 270 H POC Glucose 283 H Hemoglobin A1c Lactic Acid Calcium Phosphorus Magnesium Ferritin AST ALT Alkaline Phosphatase Lactate Dehydrogenase Troponin T C-Reactive Protein Total Protein Albumin LDL Cholesterol Direct Urine Creatinine Urine Total Protein Salicylates Acetaminophen Crossmatch 11/05/21 11/05/21 11/05/21 10:05 12:10 15:29 WBC RBC Hgb Hct MCH RDW Plt Count Lymph % (Auto) [place] % (Auto) Lymph # (Auto) [place] # (Auto) Seg Neutrophils % Seg Neuts % (Manual) Lymphocytes % (Manual) Monocytes % (Manual) Nucleated RBC % Seg Neutrophils # Seg Neutrophils # Man Monocytes # (Manual) Eosinophils # (Manual) Basophils # (Manual) PT INR APTT D-Dimer Heparin Anti-Xa Level ABG pH 7.248 L ABG pO2 73.7 L ABG HCO3 26.2 H ABG O2 Saturation 93.1 L ABG Base Excess ABG Hemoglobin 8.9 L Oxyhemoglobin 91.4 L Sodium Potassium Chloride Carbon Dioxide BUN Creatinine Glucose POC Glucose 225 H 199 H Hemoglobin A1c Lactic Acid Calcium Phosphorus Magnesium Ferritin AST ALT Alkaline Phosphatase Lactate Dehydrogenase Troponin T C-Reactive Protein Total Protein Albumin LDL Cholesterol Direct Urine Creatinine Urine Total Protein Salicylates Acetaminophen Crossmatch 11/05/21 11/05/21 11/05/21 15:51 17:32 17:40 WBC RBC Hgb Hct MCH RDW Plt Count Lymph % (Auto) [place] % (Auto) Lymph # (Auto) [place] # (Auto) Seg Neutrophils % Seg Neuts % (Manual) Lymphocytes % (Manual) Monocytes % (Manual) Nucleated RBC % Seg Neutrophils # Seg Neutrophils # Man Monocytes # (Manual) Eosinophils # (Manual) Basophils # (Manual) PT INR APTT D-Dimer Heparin Anti-Xa Level ABG pH ABG pO2 ABG HCO3 ABG O2 Saturation ABG Base Excess ABG Hemoglobin Oxyhemoglobin Sodium Potassium 5.2 H Chloride 107.8 H Carbon Dioxide BUN 79 H Creatinine 1.9 H Glucose 204 H POC Glucose 278 H 197 H Hemoglobin A1c Lactic Acid Calcium Phosphorus Magnesium Ferritin AST ALT Alkaline Phosphatase Lactate Dehydrogenase Troponin T C-Reactive Protein Total Protein Albumin LDL Cholesterol Direct Urine Creatinine Urine Total Protein Salicylates Acetaminophen Crossmatch 11/05/21 11/05/21 11/05/21 21:25 22:22 23:43 WBC RBC Hgb Hct MCH RDW Plt Count Lymph % (Auto) [place] % (Auto) Lymph # (Auto) [place] # (Auto) Seg Neutrophils % Seg Neuts % (Manual) Lymphocytes % (Manual) Monocytes % (Manual) Nucleated RBC % Seg Neutrophils # Seg Neutrophils # Man Monocytes # (Manual) Eosinophils # (Manual) Basophils # (Manual) PT INR APTT D-Dimer Heparin Anti-Xa Level ABG pH ABG pO2 ABG HCO3 ABG O2 Saturation ABG Base Excess ABG Hemoglobin Oxyhemoglobin Sodium Potassium 5.3 H Chloride 109.2 H Carbon Dioxide BUN 81 H Creatinine 2.0 H Glucose 195 H POC Glucose 180 H 203 H Hemoglobin A1c Lactic Acid Calcium Phosphorus Magnesium Ferritin AST ALT Alkaline Phosphatase Lactate Dehydrogenase Troponin T C-Reactive Protein Total Protein Albumin LDL Cholesterol Direct Urine Creatinine Urine Total Protein Salicylates Acetaminophen Crossmatch 11/05/21 11/06/21 11/06/21 Unknown 02:35 05:09 WBC RBC Hgb Hct MCH RDW Plt Count Lymph % (Auto) [place] % (Auto) Lymph # (Auto) [place] # (Auto) Seg Neutrophils % Seg Neuts % (Manual) Lymphocytes % (Manual) Monocytes % (Manual) Nucleated RBC % Seg Neutrophils # Seg Neutrophils # Man Monocytes # (Manual) Eosinophils # (Manual) Basophils # (Manual) PT INR APTT D-Dimer Heparin Anti-Xa Level ABG pH ABG pO2 ABG HCO3 ABG O2 Saturation ABG Base Excess ABG Hemoglobin Oxyhemoglobin Sodium 146 H Potassium 6.0 H Chloride 108.1 H 107.1 H Carbon Dioxide 21 L BUN 80 H 84 H Creatinine 2.0 H 2.0 H Glucose 238 H 235 H POC Glucose 215 H Hemoglobin A1c Lactic Acid Calcium Phosphorus Magnesium 2.80 H Ferritin AST ALT 77 H Alkaline Phosphatase Lactate Dehydrogenase Troponin T C-Reactive Protein Total Protein Albumin 3.0 L LDL Cholesterol Direct Urine Creatinine Urine Total Protein Salicylates Acetaminophen Crossmatch 11/06/21 11/06/21 11/06/21 05:40 08:07 08:07 WBC RBC Hgb Hct MCH RDW Plt Count Lymph % (Auto) [place] % (Auto) Lymph # (Auto) [place] # (Auto) Seg Neutrophils % Seg Neuts % (Manual) Lymphocytes % (Manual) Monocytes % (Manual) Nucleated RBC % Seg Neutrophils # Seg Neutrophils # Man Monocytes # (Manual) Eosinophils # (Manual) Basophils # (Manual) PT INR APTT D-Dimer Heparin Anti-Xa Level 1.24 H ABG pH 7.311 L ABG pO2 72.8 L ABG HCO3 29.7 H ABG O2 Saturation 94.1 L ABG Base Excess ABG Hemoglobin 11.4 L Oxyhemoglobin 92.3 L Sodium Potassium 5.2 H Chloride Carbon Dioxide BUN 85 H Creatinine 2.3 H Glucose 236 H POC Glucose Hemoglobin A1c Lactic Acid Calcium Phosphorus Magnesium Ferritin AST ALT Alkaline Phosphatase Lactate Dehydrogenase Troponin T C-Reactive Protein Total Protein Albumin LDL Cholesterol Direct Urine Creatinine Urine Total Protein Salicylates Acetaminophen Crossmatch 11/06/21 11/06/21 11/06/21 12:14 12:57 14:28 WBC RBC Hgb Hct MCH RDW Plt Count Lymph % (Auto) [place] % (Auto) Lymph # (Auto) [place] # (Auto) Seg Neutrophils % Seg Neuts % (Manual) Lymphocytes % (Manual) Monocytes % (Manual) Nucleated RBC % Seg Neutrophils # Seg Neutrophils # Man Monocytes # (Manual) Eosinophils # (Manual) Basophils # (Manual) PT INR APTT D-Dimer Heparin Anti-Xa Level ABG pH 7.282 L ABG pO2 72.6 L ABG HCO3 30.8 H ABG O2 Saturation 93.7 L ABG Base Excess 3.2 H ABG Hemoglobin 8.6 L Oxyhemoglobin 91.8 L Sodium Potassium Chloride Carbon Dioxide BUN 91 H Creatinine 2.6 H Glucose 259 H POC Glucose 225 H Hemoglobin A1c Lactic Acid Calcium Phosphorus Magnesium Ferritin AST ALT Alkaline Phosphatase Lactate Dehydrogenase Troponin T C-Reactive Protein Total Protein Albumin LDL Cholesterol Direct Urine Creatinine Urine Total Protein Salicylates Acetaminophen Crossmatch 11/06/21 11/06/21 11/06/21 17:28 19:20 21:30 WBC RBC Hgb Hct MCH RDW Plt Count Lymph % (Auto) [place] % (Auto) Lymph # (Auto) [place] # (Auto) Seg Neutrophils % Seg Neuts % (Manual) Lymphocytes % (Manual) Monocytes % (Manual) Nucleated RBC % Seg Neutrophils # Seg Neutrophils # Man Monocytes # (Manual) Eosinophils # (Manual) Basophils # (Manual) PT INR APTT D-Dimer Heparin Anti-Xa Level 0.73 H ABG pH ABG pO2 ABG HCO3 ABG O2 Saturation ABG Base Excess ABG Hemoglobin Oxyhemoglobin Sodium Potassium Chloride Carbon Dioxide BUN 95 H Creatinine 2.9 H Glucose 233 H POC Glucose 206 H Hemoglobin A1c Lactic Acid Calcium Phosphorus Magnesium Ferritin AST ALT Alkaline Phosphatase Lactate Dehydrogenase Troponin T C-Reactive Protein Total Protein Albumin LDL Cholesterol Direct Urine Creatinine Urine Total Protein Salicylates Acetaminophen Crossmatch 11/06/21 11/07/21 11/07/21 22:56 05:06 06:30 WBC RBC Hgb Hct MCH RDW Plt Count Lymph % (Auto) [place] % (Auto) Lymph # (Auto) [place] # (Auto) Seg Neutrophils % Seg Neuts % (Manual) Lymphocytes % (Manual) Monocytes % (Manual) Nucleated RBC % Seg Neutrophils # Seg Neutrophils # Man Monocytes # (Manual) Eosinophils # (Manual) Basophils # (Manual) PT INR APTT D-Dimer Heparin Anti-Xa Level ABG pH ABG pO2 ABG HCO3 ABG O2 Saturation ABG Base Excess ABG Hemoglobin Oxyhemoglobin Sodium 146 H Potassium Chloride Carbon Dioxide BUN 98 H Creatinine 2.8 H Glucose 202 H POC Glucose 215 H 172 H Hemoglobin A1c Lactic Acid Calcium Phosphorus 4.90 H D Magnesium 2.90 H Ferritin AST ALT Alkaline Phosphatase Lactate Dehydrogenase Troponin T C-Reactive Protein Total Protein Albumin LDL Cholesterol Direct Urine Creatinine Urine Total Protein Salicylates Acetaminophen Crossmatch 11/07/21 11/07/21 11/07/21 06:30 11:26 12:15 WBC 16.0 H RBC 3.06 L Hgb 8.2 L Hct 26.1 L MCH 27 L RDW 16.2 H Plt Count Lymph % (Auto) [place] % (Auto) Lymph # (Auto) [place] # (Auto) Seg Neutrophils % Seg Neuts % (Manual) 77.0 H Lymphocytes % (Manual) 11.0 L Monocytes % (Manual) Nucleated RBC % 2.0 H Seg Neutrophils # Seg Neutrophils # Man 12.3 H Monocytes # (Manual) Eosinophils # (Manual) Basophils # (Manual) PT INR APTT D-Dimer Heparin Anti-Xa Level ABG pH 7.298 L ABG pO2 73.0 L ABG HCO3 33.3 H ABG O2 Saturation 94.4 L ABG Base Excess 5.8 H ABG Hemoglobin 8.2 L Oxyhemoglobin 92.7 L Sodium Potassium Chloride Carbon Dioxide BUN Creatinine Glucose POC Glucose 179 H Hemoglobin A1c Lactic Acid Calcium Phosphorus Magnesium Ferritin AST ALT Alkaline Phosphatase Lactate Dehydrogenase Troponin T C-Reactive Protein Total Protein Albumin LDL Cholesterol Direct Urine Creatinine Urine Total Protein Salicylates Acetaminophen Crossmatch 11/07/21 11/07/21 11/07/21 17:57 22:16 23:49 WBC RBC Hgb Hct MCH RDW Plt Count Lymph % (Auto) [place] % (Auto) Lymph # (Auto) [place] # (Auto) Seg Neutrophils % Seg Neuts % (Manual) Lymphocytes % (Manual) Monocytes % (Manual) Nucleated RBC % Seg Neutrophils # Seg Neutrophils # Man Monocytes # (Manual) Eosinophils # (Manual) Basophils # (Manual) PT INR APTT D-Dimer Heparin Anti-Xa Level ABG pH ABG pO2 ABG HCO3 ABG O2 Saturation ABG Base Excess ABG Hemoglobin Oxyhemoglobin Sodium Potassium Chloride Carbon Dioxide BUN Creatinine Glucose POC Glucose 166 H 223 H 190 H Hemoglobin A1c Lactic Acid Calcium Phosphorus Magnesium Ferritin AST ALT Alkaline Phosphatase Lactate Dehydrogenase Troponin T C-Reactive Protein Total Protein Albumin LDL Cholesterol Direct Urine Creatinine Urine Total Protein Salicylates Acetaminophen Crossmatch 11/08/21 11/08/21 11/08/21 04:20 04:20 06:16 WBC 22.1 H RBC 3.01 L Hgb 8.1 L Hct 25.6 L MCH 27 L RDW 15.4 H Plt Count Lymph % (Auto) [place] % (Auto) Lymph # (Auto) [place] # (Auto) Seg Neutrophils % Seg Neuts % (Manual) Lymphocytes % (Manual) Monocytes % (Manual) Nucleated RBC % Seg Neutrophils # Seg Neutrophils # Man Monocytes # (Manual) Eosinophils # (Manual) Basophils # (Manual) PT INR APTT D-Dimer Heparin Anti-Xa Level ABG pH ABG pO2 ABG HCO3 ABG O2 Saturation ABG Base Excess ABG Hemoglobin Oxyhemoglobin Sodium 151 H Potassium 3.1 L D Chloride 107.3 H Carbon Dioxide 31 H BUN 82 H Creatinine 1.8 H Glucose 232 H POC Glucose 198 H Hemoglobin A1c Lactic Acid Calcium 8.1 L Phosphorus Magnesium Ferritin AST ALT Alkaline Phosphatase Lactate Dehydrogenase Troponin T C-Reactive Protein Total Protein Albumin LDL Cholesterol Direct Urine Creatinine Urine Total Protein Salicylates Acetaminophen Crossmatch 11/08/21 11/08/21 11/08/21 11:38 12:00 18:29 WBC RBC Hgb Hct MCH RDW Plt Count Lymph % (Auto) [place] % (Auto) Lymph # (Auto) [place] # (Auto) Seg Neutrophils % Seg Neuts % (Manual) Lymphocytes % (Manual) Monocytes % (Manual) Nucleated RBC % Seg Neutrophils # Seg Neutrophils # Man Monocytes # (Manual) Eosinophils # (Manual) Basophils # (Manual) PT INR APTT D-Dimer Heparin Anti-Xa Level ABG pH ABG pO2 ABG HCO3 ABG O2 Saturation ABG Base Excess ABG Hemoglobin Oxyhemoglobin Sodium Potassium 3.0 L Chloride Carbon Dioxide BUN Creatinine Glucose POC Glucose 190 H 211 H Hemoglobin A1c Lactic Acid Calcium Phosphorus Magnesium Ferritin AST ALT Alkaline Phosphatase Lactate Dehydrogenase Troponin T C-Reactive Protein Total Protein Albumin LDL Cholesterol Direct Urine Creatinine Urine Total Protein Salicylates Acetaminophen Crossmatch 11/08/21 11/08/21 11/09/21 21:34 21:40 00:36 WBC RBC Hgb Hct MCH RDW Plt Count Lymph % (Auto) [place] % (Auto) Lymph # (Auto) [place] # (Auto) Seg Neutrophils % Seg Neuts % (Manual) Lymphocytes % (Manual) Monocytes % (Manual) Nucleated RBC % Seg Neutrophils # Seg Neutrophils # Man Monocytes # (Manual) Eosinophils # (Manual) Basophils # (Manual) PT INR APTT D-Dimer Heparin Anti-Xa Level ABG pH ABG pO2 ABG HCO3 ABG O2 Saturation ABG Base Excess ABG Hemoglobin Oxyhemoglobin Sodium 148 H Potassium 2.8 L* Chloride Carbon Dioxide 31 H BUN 68 H Creatinine 1.5 H Glucose 191 H POC Glucose 194 H 140 H Hemoglobin A1c Lactic Acid Calcium 8.2 L Phosphorus Magnesium Ferritin AST ALT Alkaline Phosphatase Lactate Dehydrogenase Troponin T C-Reactive Protein Total Protein Albumin LDL Cholesterol Direct Urine Creatinine Urine Total Protein Salicylates Acetaminophen Crossmatch 11/09/21 11/09/21 11/09/21 04:51 04:51 04:51 WBC 27.6 H RBC 3.18 L Hgb 8.4 L Hct 26.6 L MCH 27 L RDW 15.3 H Plt Count Lymph % (Auto) [place] % (Auto) Lymph # (Auto) [place] # (Auto) Seg Neutrophils % Seg Neuts % (Manual) Lymphocytes % (Manual) Monocytes % (Manual) Nucleated RBC % Seg Neutrophils # Seg Neutrophils # Man Monocytes # (Manual) Eosinophils # (Manual) Basophils # (Manual) PT INR APTT D-Dimer Heparin Anti-Xa Level 0.18 L ABG pH ABG pO2 ABG HCO3 ABG O2 Saturation ABG Base Excess ABG Hemoglobin Oxyhemoglobin Sodium 148 H Potassium 2.7 L* Chloride Carbon Dioxide BUN 59 H Creatinine 1.4 H Glucose 143 H POC Glucose Hemoglobin A1c Lactic Acid Calcium 8.3 L Phosphorus Magnesium Ferritin AST ALT Alkaline Phosphatase Lactate Dehydrogenase Troponin T C-Reactive Protein Total Protein Albumin LDL Cholesterol Direct Urine Creatinine Urine Total Protein Salicylates Acetaminophen Crossmatch 11/09/21 11/09/21 11/09/21 05:52 08:45 11:00 WBC RBC Hgb Hct MCH RDW Plt Count Lymph % (Auto) [place] % (Auto) Lymph # (Auto) [place] # (Auto) Seg Neutrophils % Seg Neuts % (Manual) Lymphocytes % (Manual) Monocytes % (Manual) Nucleated RBC % Seg Neutrophils # Seg Neutrophils # Man Monocytes # (Manual) Eosinophils # (Manual) Basophils # (Manual) PT INR APTT D-Dimer Heparin Anti-Xa Level ABG pH ABG pO2 73.2 L ABG HCO3 33.8 H ABG O2 Saturation ABG Base Excess 8.7 H ABG Hemoglobin 8.5 L Oxyhemoglobin 94.1 L Sodium Potassium Chloride Carbon Dioxide BUN Creatinine Glucose POC Glucose 166 H 136 H Hemoglobin A1c Lactic Acid Calcium Phosphorus Magnesium Ferritin AST ALT Alkaline Phosphatase Lactate Dehydrogenase Troponin T C-Reactive Protein Total Protein Albumin LDL Cholesterol Direct Urine Creatinine Urine Total Protein Salicylates Acetaminophen Crossmatch 11/09/21 11/09/21 11/09/21 15:48 16:10 20:31 WBC RBC Hgb Hct MCH RDW Plt Count Lymph % (Auto) [place] % (Auto) Lymph # (Auto) [place] # (Auto) Seg Neutrophils % Seg Neuts % (Manual) Lymphocytes % (Manual) Monocytes % (Manual) Nucleated RBC % Seg Neutrophils # Seg Neutrophils # Man Monocytes # (Manual) Eosinophils # (Manual) Basophils # (Manual) PT INR APTT D-Dimer Heparin Anti-Xa Level ABG pH ABG pO2 ABG HCO3 ABG O2 Saturation ABG Base Excess ABG Hemoglobin Oxyhemoglobin Sodium Potassium 2.8 L* Chloride Carbon Dioxide 31 H BUN 53 H Creatinine 1.3 H Glucose 208 H POC Glucose 203 H 166 H Hemoglobin A1c Lactic Acid Calcium 7.9 L Phosphorus Magnesium Ferritin AST ALT Alkaline Phosphatase Lactate Dehydrogenase Troponin T C-Reactive Protein Total Protein Albumin LDL Cholesterol Direct Urine Creatinine Urine Total Protein Salicylates Acetaminophen Crossmatch 11/09/21 11/09/21 11/09/21 21:30 23:16 Unknown WBC RBC Hgb Hct MCH RDW Plt Count Lymph % (Auto) [place] % (Auto) Lymph # (Auto) [place] # (Auto) Seg Neutrophils % Seg Neuts % (Manual) Lymphocytes % (Manual) Monocytes % (Manual) Nucleated RBC % Seg Neutrophils # Seg Neutrophils # Man Monocytes # (Manual) Eosinophils # (Manual) Basophils # (Manual) PT INR APTT D-Dimer Heparin Anti-Xa Level 0.24 L ABG pH ABG pO2 ABG HCO3 ABG O2 Saturation ABG Base Excess ABG Hemoglobin Oxyhemoglobin Sodium Potassium Chloride Carbon Dioxide BUN 52 H Creatinine 1.4 H Glucose 185 H POC Glucose 172 H Hemoglobin A1c Lactic Acid Calcium 7.8 L Phosphorus Magnesium Ferritin AST ALT Alkaline Phosphatase Lactate Dehydrogenase Troponin T C-Reactive Protein Total Protein Albumin LDL Cholesterol Direct Urine Creatinine Urine Total Protein Salicylates Acetaminophen Crossmatch 11/10/21 11/10/21 11/10/21 02:00 04:17 04:17 WBC 24.5 H RBC 2.75 L Hgb 7.5 L Hct 22.9 L MCH 27 L RDW Plt Count Lymph % (Auto) [place] % (Auto) Lymph # (Auto) [place] # (Auto) Seg Neutrophils % Seg Neuts % (Manual) Lymphocytes % (Manual) Monocytes % (Manual) Nucleated RBC % Seg Neutrophils # Seg Neutrophils # Man Monocytes # (Manual) Eosinophils # (Manual) Basophils # (Manual) PT INR APTT D-Dimer Heparin Anti-Xa Level 0.26 L ABG pH ABG pO2 ABG HCO3 ABG O2 Saturation ABG Base Excess ABG Hemoglobin Oxyhemoglobin Sodium Potassium 2.9 L* Chloride Carbon Dioxide 35 H BUN 48 H Creatinine Glucose 212 H POC Glucose Hemoglobin A1c Lactic Acid Calcium 8.1 L Phosphorus Magnesium Ferritin AST ALT Alkaline Phosphatase Lactate Dehydrogenase Troponin T C-Reactive Protein Total Protein Albumin LDL Cholesterol Direct Urine Creatinine Urine Total Protein Salicylates Acetaminophen Crossmatch 11/10/21 11/10/21 11/10/21 05:01 08:39 11:03 WBC RBC Hgb Hct MCH RDW Plt Count Lymph % (Auto) [place] % (Auto) Lymph # (Auto) [place] # (Auto) Seg Neutrophils % Seg Neuts % (Manual) Lymphocytes % (Manual) Monocytes % (Manual) Nucleated RBC % Seg Neutrophils # Seg Neutrophils # Man Monocytes # (Manual) Eosinophils # (Manual) Basophils # (Manual) PT INR APTT D-Dimer Heparin Anti-Xa Level 0.12 L ABG pH ABG pO2 ABG HCO3 ABG O2 Saturation ABG Base Excess ABG Hemoglobin Oxyhemoglobin Sodium Potassium Chloride Carbon Dioxide BUN Creatinine Glucose POC Glucose 203 H 152 H Hemoglobin A1c Lactic Acid Calcium Phosphorus Magnesium Ferritin AST ALT Alkaline Phosphatase Lactate Dehydrogenase Troponin T C-Reactive Protein Total Protein Albumin LDL Cholesterol Direct Urine Creatinine Urine Total Protein Salicylates Acetaminophen Crossmatch 11/10/21 11/10/21 11/10/21 12:45 15:43 21:05 WBC RBC Hgb Hct MCH RDW Plt Count Lymph % (Auto) [place] % (Auto) Lymph # (Auto) [place] # (Auto) Seg Neutrophils % Seg Neuts % (Manual) Lymphocytes % (Manual) Monocytes % (Manual) Nucleated RBC % Seg Neutrophils # Seg Neutrophils # Man Monocytes # (Manual) Eosinophils # (Manual) Basophils # (Manual) PT INR APTT D-Dimer Heparin Anti-Xa Level ABG pH ABG pO2 ABG HCO3 ABG O2 Saturation ABG Base Excess ABG Hemoglobin Oxyhemoglobin Sodium 146 H Potassium 3.3 L Chloride Carbon Dioxide 31 H BUN 43 H Creatinine Glucose 155 H POC Glucose 139 H 139 H Hemoglobin A1c Lactic Acid Calcium 8.3 L Phosphorus Magnesium Ferritin AST ALT Alkaline Phosphatase Lactate Dehydrogenase Troponin T C-Reactive Protein Total Protein Albumin LDL Cholesterol Direct Urine Creatinine Urine Total Protein Salicylates Acetaminophen Crossmatch 11/10/21 11/11/21 11/11/21 23:25 03:49 03:49 WBC 22.1 H RBC 2.69 L Hgb 7.2 L Hct 22.7 L MCH 27 L RDW Plt Count Lymph % (Auto) [place] % (Auto) Lymph # (Auto) [place] # (Auto) Seg Neutrophils % Seg Neuts % (Manual) Lymphocytes % (Manual) Monocytes % (Manual) Nucleated RBC % Seg Neutrophils # Seg Neutrophils # Man Monocytes # (Manual) Eosinophils # (Manual) Basophils # (Manual) PT INR APTT D-Dimer Heparin Anti-Xa Level ABG pH ABG pO2 ABG HCO3 ABG O2 Saturation ABG Base Excess ABG Hemoglobin Oxyhemoglobin Sodium Potassium Chloride Carbon Dioxide 32 H BUN 44 H Creatinine 1.3 H Glucose 173 H POC Glucose 146 H Hemoglobin A1c Lactic Acid Calcium Phosphorus Magnesium Ferritin AST ALT Alkaline Phosphatase Lactate Dehydrogenase Troponin T C-Reactive Protein Total Protein Albumin LDL Cholesterol Direct Urine Creatinine Urine Total Protein Salicylates Acetaminophen Crossmatch 11/11/21 11/11/21 11/11/21 05:03 10:50 11:32 WBC RBC Hgb Hct MCH RDW Plt Count Lymph % (Auto) [place] % (Auto) Lymph # (Auto) [place] # (Auto) Seg Neutrophils % Seg Neuts % (Manual) Lymphocytes % (Manual) Monocytes % (Manual) Nucleated RBC % Seg Neutrophils # Seg Neutrophils # Man Monocytes # (Manual) Eosinophils # (Manual) Basophils # (Manual) PT INR APTT D-Dimer Heparin Anti-Xa Level ABG pH ABG pO2 ABG HCO3 ABG O2 Saturation ABG Base Excess ABG Hemoglobin Oxyhemoglobin Sodium Potassium Chloride Carbon Dioxide BUN Creatinine Glucose POC Glucose 152 H 129 H 133 H Hemoglobin A1c Lactic Acid Calcium Phosphorus Magnesium Ferritin AST ALT Alkaline Phosphatase Lactate Dehydrogenase Troponin T C-Reactive Protein Total Protein Albumin LDL Cholesterol Direct Urine Creatinine Urine Total Protein Salicylates Acetaminophen Crossmatch 11/11/21 11/11/21 11/11/21 13:53 16:31 17:13 WBC RBC Hgb Hct MCH RDW Plt Count Lymph % (Auto) [place] % (Auto) Lymph # (Auto) [place] # (Auto) Seg Neutrophils % Seg Neuts % (Manual) Lymphocytes % (Manual) Monocytes % (Manual) Nucleated RBC % Seg Neutrophils # Seg Neutrophils # Man Monocytes # (Manual) Eosinophils # (Manual) Basophils # (Manual) PT INR APTT D-Dimer Heparin Anti-Xa Level ABG pH 7.475 H ABG pO2 64.1 L ABG HCO3 32.4 H ABG O2 Saturation ABG Base Excess 8.0 H ABG Hemoglobin 7.6 L Oxyhemoglobin 94.0 L Sodium Potassium Chloride Carbon Dioxide BUN Creatinine Glucose POC Glucose 116 H 125 H Hemoglobin A1c Lactic Acid Calcium Phosphorus Magnesium Ferritin AST ALT Alkaline Phosphatase Lactate Dehydrogenase Troponin T C-Reactive Protein Total Protein Albumin LDL Cholesterol Direct Urine Creatinine Urine Total Protein Salicylates Acetaminophen Crossmatch 11/11/21 11/11/21 11/12/21 20:40 23:35 03:30 WBC 17.7 H RBC 2.37 L Hgb 6.3 L Hct 20.0 L MCH 27 L RDW 15.5 H Plt Count Lymph % (Auto) [place] % (Auto) Lymph # (Auto) [place] # (Auto) Seg Neutrophils % Seg Neuts % (Manual) Lymphocytes % (Manual) Monocytes % (Manual) Nucleated RBC % Seg Neutrophils # Seg Neutrophils # Man Monocytes # (Manual) Eosinophils # (Manual) Basophils # (Manual) PT INR APTT D-Dimer Heparin Anti-Xa Level 0.26 L ABG pH ABG pO2 ABG HCO3 ABG O2 Saturation ABG Base Excess ABG Hemoglobin Oxyhemoglobin Sodium Potassium Chloride Carbon Dioxide BUN Creatinine Glucose POC Glucose 118 H Hemoglobin A1c Lactic Acid Calcium Phosphorus Magnesium Ferritin AST ALT Alkaline Phosphatase Lactate Dehydrogenase Troponin T C-Reactive Protein Total Protein Albumin LDL Cholesterol Direct Urine Creatinine Urine Total Protein Salicylates Acetaminophen Crossmatch 11/12/21 11/12/21 11/12/21 03:30 04:15 11:53 WBC RBC Hgb Hct MCH RDW Plt Count Lymph % (Auto) [place] % (Auto) Lymph # (Auto) [place] # (Auto) Seg Neutrophils % Seg Neuts % (Manual) Lymphocytes % (Manual) Monocytes % (Manual) Nucleated RBC % Seg Neutrophils # Seg Neutrophils # Man Monocytes # (Manual) Eosinophils # (Manual) Basophils # (Manual) PT INR APTT D-Dimer Heparin Anti-Xa Level ABG pH ABG pO2 ABG HCO3 ABG O2 Saturation ABG Base Excess ABG Hemoglobin Oxyhemoglobin Sodium Potassium Chloride Carbon Dioxide 33 H BUN 38 H Creatinine 1.3 H Glucose 102 H POC Glucose 62 L Hemoglobin A1c Lactic Acid Calcium 8.2 L Phosphorus Magnesium Ferritin AST ALT Alkaline Phosphatase Lactate Dehydrogenase Troponin T C-Reactive Protein Total Protein Albumin LDL Cholesterol Direct Urine Creatinine Urine Total Protein Salicylates Acetaminophen Crossmatch See Detail 11/12/21 11/12/21 11/12/21 17:20 19:14 23:11 WBC RBC Hgb 6.2 L Hct 19.5 L* MCH RDW Plt Count Lymph % (Auto) [place] % (Auto) Lymph # (Auto) [place] # (Auto) Seg Neutrophils % Seg Neuts % (Manual) Lymphocytes % (Manual) Monocytes % (Manual) Nucleated RBC % Seg Neutrophils # Seg Neutrophils # Man Monocytes # (Manual) Eosinophils # (Manual) Basophils # (Manual) PT INR APTT D-Dimer Heparin Anti-Xa Level ABG pH ABG pO2 ABG HCO3 ABG O2 Saturation ABG Base Excess ABG Hemoglobin Oxyhemoglobin Sodium Potassium Chloride Carbon Dioxide BUN Creatinine Glucose POC Glucose 115 H 131 H Hemoglobin A1c Lactic Acid Calcium Phosphorus Magnesium Ferritin AST ALT Alkaline Phosphatase Lactate Dehydrogenase Troponin T C-Reactive Protein Total Protein Albumin LDL Cholesterol Direct Urine Creatinine Urine Total Protein Salicylates Acetaminophen Crossmatch 11/13/21 11/13/21 11/13/21 00:13 04:17 04:17 WBC 23.8 H RBC 2.84 L Hgb 7.4 L 7.8 L Hct 23.3 L 24.9 L MCH 27 L RDW 15.4 H Plt Count Lymph % (Auto) [place] % (Auto) Lymph # (Auto) [place] # (Auto) Seg Neutrophils % Seg Neuts % (Manual) Lymphocytes % (Manual) Monocytes % (Manual) Nucleated RBC % Seg Neutrophils # Seg Neutrophils # Man Monocytes # (Manual) Eosinophils # (Manual) Basophils # (Manual) PT INR APTT D-Dimer Heparin Anti-Xa Level ABG pH ABG pO2 ABG HCO3 ABG O2 Saturation ABG Base Excess ABG Hemoglobin Oxyhemoglobin Sodium 146 H Potassium Chloride Carbon Dioxide BUN 44 H Creatinine 1.6 H Glucose 144 H POC Glucose Hemoglobin A1c Lactic Acid Calcium 7.9 L Phosphorus 5.10 H D Magnesium Ferritin AST ALT Alkaline Phosphatase Lactate Dehydrogenase Troponin T C-Reactive Protein Total Protein Albumin LDL Cholesterol Direct Urine Creatinine Urine Total Protein Salicylates Acetaminophen Crossmatch 11/13/21 11/13/21 11/13/21 05:52 10:54 15:57 WBC RBC Hgb Hct MCH RDW Plt Count Lymph % (Auto) [place] % (Auto) Lymph # (Auto) [place] # (Auto) Seg Neutrophils % Seg Neuts % (Manual) Lymphocytes % (Manual) Monocytes % (Manual) Nucleated RBC % Seg Neutrophils # Seg Neutrophils # Man Monocytes # (Manual) Eosinophils # (Manual) Basophils # (Manual) PT INR APTT D-Dimer Heparin Anti-Xa Level ABG pH ABG pO2 ABG HCO3 ABG O2 Saturation ABG Base Excess ABG Hemoglobin Oxyhemoglobin Sodium Potassium Chloride Carbon Dioxide BUN Creatinine Glucose POC Glucose 123 H 147 H 207 H Hemoglobin A1c Lactic Acid Calcium Phosphorus Magnesium Ferritin AST ALT Alkaline Phosphatase Lactate Dehydrogenase Troponin T C-Reactive Protein Total Protein Albumin LDL Cholesterol Direct Urine Creatinine Urine Total Protein Salicylates Acetaminophen Crossmatch 11/13/21 11/13/21 11/14/21 16:01 23:18 04:55 WBC 23.9 H RBC 2.86 L Hgb 6.5 L 8.3 L Hct 20.3 L 24.5 L MCH RDW Plt Count Lymph % (Auto) [place] % (Auto) Lymph # (Auto) [place] # (Auto) Seg Neutrophils % Seg Neuts % (Manual) Lymphocytes % (Manual) Monocytes % (Manual) Nucleated RBC % Seg Neutrophils # Seg Neutrophils # Man Monocytes # (Manual) Eosinophils # (Manual) Basophils # (Manual) PT INR APTT D-Dimer Heparin Anti-Xa Level ABG pH ABG pO2 ABG HCO3 ABG O2 Saturation ABG Base Excess ABG Hemoglobin Oxyhemoglobin Sodium Potassium Chloride Carbon Dioxide BUN Creatinine Glucose POC Glucose 209 H Hemoglobin A1c Lactic Acid Calcium Phosphorus Magnesium Ferritin AST ALT Alkaline Phosphatase Lactate Dehydrogenase Troponin T C-Reactive Protein Total Protein Albumin LDL Cholesterol Direct Urine Creatinine Urine Total Protein Salicylates Acetaminophen Crossmatch 11/14/21 11/14/21 11/14/21 04:55 05:09 11:35 WBC RBC Hgb Hct MCH RDW Plt Count Lymph % (Auto) [place] % (Auto) Lymph # (Auto) [place] # (Auto) Seg Neutrophils % Seg Neuts % (Manual) Lymphocytes % (Manual) Monocytes % (Manual) Nucleated RBC % Seg Neutrophils # Seg Neutrophils # Man Monocytes # (Manual) Eosinophils # (Manual) Basophils # (Manual) PT INR APTT D-Dimer Heparin Anti-Xa Level ABG pH ABG pO2 ABG HCO3 ABG O2 Saturation ABG Base Excess ABG Hemoglobin Oxyhemoglobin Sodium 148 H Potassium Chloride 109.0 H Carbon Dioxide BUN 42 H Creatinine 1.6 H Glucose 184 H POC Glucose 169 H 154 H Hemoglobin A1c Lactic Acid Calcium 8.0 L Phosphorus Magnesium Ferritin AST ALT Alkaline Phosphatase Lactate Dehydrogenase Troponin T C-Reactive Protein Total Protein Albumin LDL Cholesterol Direct Urine Creatinine Urine Total Protein Salicylates Acetaminophen Crossmatch 11/14/21 11/14/21 11/15/21 16:57 23:11 04:36 WBC RBC Hgb Hct MCH RDW Plt Count Lymph % (Auto) [place] % (Auto) Lymph # (Auto) [place] # (Auto) Seg Neutrophils % Seg Neuts % (Manual) Lymphocytes % (Manual) Monocytes % (Manual) Nucleated RBC % Seg Neutrophils # Seg Neutrophils # Man Monocytes # (Manual) Eosinophils # (Manual) Basophils # (Manual) PT INR APTT D-Dimer Heparin Anti-Xa Level ABG pH ABG pO2 ABG HCO3 ABG O2 Saturation ABG Base Excess ABG Hemoglobin Oxyhemoglobin Sodium 151 H Potassium Chloride 111.2 H Carbon Dioxide BUN 36 H Creatinine 1.3 H Glucose 136 H POC Glucose 124 H 118 H Hemoglobin A1c Lactic Acid Calcium 8.1 L Phosphorus Magnesium Ferritin AST ALT Alkaline Phosphatase Lactate Dehydrogenase Troponin T C-Reactive Protein Total Protein Albumin LDL Cholesterol Direct Urine Creatinine Urine Total Protein Salicylates Acetaminophen Crossmatch 11/15/21 11/15/21 11/16/21 11:18 21:49 00:15 WBC RBC Hgb Hct MCH RDW Plt Count Lymph % (Auto) [place] % (Auto) Lymph # (Auto) [place] # (Auto) Seg Neutrophils % Seg Neuts % (Manual) Lymphocytes % (Manual) Monocytes % (Manual) Nucleated RBC % Seg Neutrophils # Seg Neutrophils # Man Monocytes # (Manual) Eosinophils # (Manual) Basophils # (Manual) PT INR APTT D-Dimer Heparin Anti-Xa Level ABG pH ABG pO2 ABG HCO3 ABG O2 Saturation ABG Base Excess ABG Hemoglobin Oxyhemoglobin Sodium Potassium Chloride Carbon Dioxide BUN Creatinine Glucose POC Glucose 154 H 154 H 146 H Hemoglobin A1c Lactic Acid Calcium Phosphorus Magnesium Ferritin AST ALT Alkaline Phosphatase Lactate Dehydrogenase Troponin T C-Reactive Protein Total Protein Albumin LDL Cholesterol Direct Urine Creatinine Urine Total Protein Salicylates Acetaminophen Crossmatch 11/16/21 11/16/21 11/16/21 05:11 05:11 05:37 WBC 18.2 H RBC 2.92 L Hgb 8.3 L Hct 26.1 L MCH RDW 15.8 H Plt Count Lymph % (Auto) 6.3 L [place] % (Auto) 10.2 H Lymph # (Auto) [place] # (Auto) 1.9 H Seg Neutrophils % 81.7 H Seg Neuts % (Manual) Lymphocytes % (Manual) Monocytes % (Manual) Nucleated RBC % Seg Neutrophils # 14.9 H Seg Neutrophils # Man Monocytes # (Manual) Eosinophils # (Manual) Basophils # (Manual) PT INR APTT D-Dimer Heparin Anti-Xa Level ABG pH ABG pO2 ABG HCO3 ABG O2 Saturation ABG Base Excess ABG Hemoglobin Oxyhemoglobin Sodium 146 H Potassium Chloride 108.0 H Carbon Dioxide BUN 25 H Creatinine Glucose 123 H POC Glucose 109 H Hemoglobin A1c Lactic Acid Calcium 7.8 L Phosphorus Magnesium Ferritin AST ALT Alkaline Phosphatase Lactate Dehydrogenase Troponin T C-Reactive Protein Total Protein Albumin LDL Cholesterol Direct Urine Creatinine Urine Total Protein Salicylates Acetaminophen Crossmatch 11/16/21 11/16/21 11/17/21 11:22 23:55 04:33 WBC RBC Hgb Hct MCH RDW Plt Count Lymph % (Auto) [place] % (Auto) Lymph # (Auto) [place] # (Auto) Seg Neutrophils % Seg Neuts % (Manual) Lymphocytes % (Manual) Monocytes % (Manual) Nucleated RBC % Seg Neutrophils # Seg Neutrophils # Man Monocytes # (Manual) Eosinophils # (Manual) Basophils # (Manual) PT INR APTT D-Dimer Heparin Anti-Xa Level ABG pH ABG pO2 ABG HCO3 ABG O2 Saturation ABG Base Excess ABG Hemoglobin Oxyhemoglobin Sodium Potassium Chloride Carbon Dioxide BUN 20 H Creatinine Glucose POC Glucose 136 H 113 H Hemoglobin A1c Lactic Acid Calcium 7.5 L Phosphorus Magnesium Ferritin AST ALT Alkaline Phosphatase Lactate Dehydrogenase Troponin T C-Reactive Protein Total Protein Albumin LDL Cholesterol Direct Urine Creatinine Urine Total Protein Salicylates Acetaminophen Crossmatch 11/17/21 11/18/21 11/18/21 23:22 04:53 04:53 WBC 13.0 H RBC 2.99 L Hgb 8.5 L Hct 26.4 L MCH RDW Plt Count Lymph % (Auto) 9.5 L [place] % (Auto) 9.8 H Lymph # (Auto) [place] # (Auto) 1.3 H Seg Neutrophils % 78.3 H Seg Neuts % (Manual) Lymphocytes % (Manual) Monocytes % (Manual) Nucleated RBC % Seg Neutrophils # 10.2 H Seg Neutrophils # Man Monocytes # (Manual) Eosinophils # (Manual) Basophils # (Manual) PT INR APTT D-Dimer Heparin Anti-Xa Level ABG pH ABG pO2 ABG HCO3 ABG O2 Saturation ABG Base Excess ABG Hemoglobin Oxyhemoglobin Sodium Potassium Chloride Carbon Dioxide BUN 18 H Creatinine Glucose 106 H POC Glucose 112 H Hemoglobin A1c Lactic Acid Calcium 8.1 L Phosphorus Magnesium Ferritin AST ALT Alkaline Phosphatase Lactate Dehydrogenase Troponin T C-Reactive Protein Total Protein Albumin LDL Cholesterol Direct Urine Creatinine Urine Total Protein Salicylates Acetaminophen Crossmatch 11/18/21 11/18/21 11/19/21 11:35 17:42 14:38 WBC RBC Hgb Hct MCH RDW Plt Count Lymph % (Auto) [place] % (Auto) Lymph # (Auto) [place] # (Auto) Seg Neutrophils % Seg Neuts % (Manual) Lymphocytes % (Manual) Monocytes % (Manual) Nucleated RBC % Seg Neutrophils # Seg Neutrophils # Man Monocytes # (Manual) Eosinophils # (Manual) Basophils # (Manual) PT INR APTT D-Dimer Heparin Anti-Xa Level ABG pH ABG pO2 ABG HCO3 ABG O2 Saturation ABG Base Excess ABG Hemoglobin Oxyhemoglobin Sodium Potassium Chloride 97.5 L Carbon Dioxide 31 H BUN Creatinine Glucose 146 H POC Glucose 143 H 132 H Hemoglobin A1c Lactic Acid Calcium Phosphorus Magnesium 1.60 L Ferritin AST ALT Alkaline Phosphatase Lactate Dehydrogenase Troponin T C-Reactive Protein Total Protein Albumin LDL Cholesterol Direct Urine Creatinine Urine Total Protein Salicylates Acetaminophen Crossmatch 11/19/21 11/19/21 11/20/21 16:24 23:58 07:42 WBC RBC 3.01 L Hgb 8.6 L Hct 26.7 L MCH RDW 15.4 H Plt Count Lymph % (Auto) [place] % (Auto) Lymph # (Auto) [place] # (Auto) Seg Neutrophils % Seg Neuts % (Manual) Lymphocytes % (Manual) Monocytes % (Manual) Nucleated RBC % Seg Neutrophils # Seg Neutrophils # Man Monocytes # (Manual) Eosinophils # (Manual) Basophils # (Manual) PT INR APTT D-Dimer Heparin Anti-Xa Level ABG pH ABG pO2 ABG HCO3 ABG O2 Saturation ABG Base Excess ABG Hemoglobin Oxyhemoglobin Sodium Potassium Chloride Carbon Dioxide BUN Creatinine Glucose POC Glucose 129 H 125 H Hemoglobin A1c Lactic Acid Calcium Phosphorus Magnesium Ferritin AST ALT Alkaline Phosphatase Lactate Dehydrogenase Troponin T C-Reactive Protein Total Protein Albumin LDL Cholesterol Direct Urine Creatinine Urine Total Protein Salicylates Acetaminophen Crossmatch 11/20/21 11/20/21 11/20/21 07:42 11:25 22:59 WBC RBC Hgb Hct MCH RDW Plt Count Lymph % (Auto) [place] % (Auto) Lymph # (Auto) [place] # (Auto) Seg Neutrophils % Seg Neuts % (Manual) Lymphocytes % (Manual) Monocytes % (Manual) Nucleated RBC % Seg Neutrophils # Seg Neutrophils # Man Monocytes # (Manual) Eosinophils # (Manual) Basophils # (Manual) PT INR APTT D-Dimer Heparin Anti-Xa Level ABG pH ABG pO2 ABG HCO3 ABG O2 Saturation ABG Base Excess ABG Hemoglobin Oxyhemoglobin Sodium Potassium Chloride Carbon Dioxide 31 H BUN Creatinine Glucose POC Glucose 116 H 113 H Hemoglobin A1c Lactic Acid Calcium Phosphorus Magnesium Ferritin AST ALT Alkaline Phosphatase Lactate Dehydrogenase Troponin T C-Reactive Protein Total Protein Albumin LDL Cholesterol Direct Urine Creatinine Urine Total Protein Salicylates Acetaminophen Crossmatch 11/21/21 11/22/21 11/22/21 10:50 05:10 16:12 WBC RBC Hgb Hct MCH RDW Plt Count Lymph % (Auto) [place] % (Auto) Lymph # (Auto) [place] # (Auto) Seg Neutrophils % Seg Neuts % (Manual) Lymphocytes % (Manual) Monocytes % (Manual) Nucleated RBC % Seg Neutrophils # Seg Neutrophils # Man Monocytes # (Manual) Eosinophils # (Manual) Basophils # (Manual) PT INR APTT D-Dimer Heparin Anti-Xa Level ABG pH ABG pO2 ABG HCO3 ABG O2 Saturation ABG Base Excess ABG Hemoglobin Oxyhemoglobin Sodium Potassium Chloride Carbon Dioxide 32 H BUN Creatinine Glucose POC Glucose 156 H 110 H Hemoglobin A1c Lactic Acid Calcium 8.1 L Phosphorus Magnesium Ferritin AST ALT Alkaline Phosphatase Lactate Dehydrogenase Troponin T C-Reactive Protein Total Protein Albumin LDL Cholesterol Direct Urine Creatinine Urine Total Protein Salicylates Acetaminophen Crossmatch 11/23/21 11/23/21 11/23/21 07:18 07:18 11:45 WBC RBC 3.23 L Hgb 9.1 L Hct 28.5 L MCH RDW 15.6 H Plt Count Lymph % (Auto) [place] % (Auto) Lymph # (Auto) [place] # (Auto) Seg Neutrophils % Seg Neuts % (Manual) Lymphocytes % (Manual) Monocytes % (Manual) Nucleated RBC % Seg Neutrophils # Seg Neutrophils # Man Monocytes # (Manual) Eosinophils # (Manual) Basophils # (Manual) PT INR APTT D-Dimer Heparin Anti-Xa Level ABG pH ABG pO2 ABG HCO3 ABG O2 Saturation ABG Base Excess ABG Hemoglobin Oxyhemoglobin Sodium Potassium 3.3 L Chloride 96.8 L Carbon Dioxide 32 H BUN Creatinine Glucose POC Glucose 140 H Hemoglobin A1c Lactic Acid Calcium Phosphorus Magnesium Ferritin AST ALT Alkaline Phosphatase Lactate Dehydrogenase Troponin T C-Reactive Protein Total Protein Albumin LDL Cholesterol Direct Urine Creatinine Urine Total Protein Salicylates Acetaminophen Crossmatch 11/23/21 11/23/21 11/24/21 16:40 23:45 07:19 WBC RBC 3.12 L Hgb 9.3 L Hct 27.2 L MCH RDW 16.0 H Plt Count Lymph % (Auto) 10.3 L [place] % (Auto) 10.0 H Lymph # (Auto) 1.1 L [place] # (Auto) 1.1 H Seg Neutrophils % 75.2 H Seg Neuts % (Manual) Lymphocytes % (Manual) Monocytes % (Manual) Nucleated RBC % Seg Neutrophils # 7.9 H Seg Neutrophils # Man Monocytes # (Manual) Eosinophils # (Manual) Basophils # (Manual) PT INR APTT D-Dimer Heparin Anti-Xa Level ABG pH ABG pO2 ABG HCO3 ABG O2 Saturation ABG Base Excess ABG Hemoglobin Oxyhemoglobin Sodium Potassium Chloride Carbon Dioxide BUN Creatinine Glucose POC Glucose 140 H 138 H Hemoglobin A1c Lactic Acid Calcium Phosphorus Magnesium Ferritin AST ALT Alkaline Phosphatase Lactate Dehydrogenase Troponin T C-Reactive Protein Total Protein Albumin LDL Cholesterol Direct Urine Creatinine Urine Total Protein Salicylates Acetaminophen Crossmatch 11/24/21 11/24/21 11/24/21 07:19 11:49 15:54 WBC RBC Hgb Hct MCH RDW Plt Count Lymph % (Auto) [place] % (Auto) Lymph # (Auto) [place] # (Auto) Seg Neutrophils % Seg Neuts % (Manual) Lymphocytes % (Manual) Monocytes % (Manual) Nucleated RBC % Seg Neutrophils # Seg Neutrophils # Man Monocytes # (Manual) Eosinophils # (Manual) Basophils # (Manual) PT INR APTT D-Dimer Heparin Anti-Xa Level ABG pH ABG pO2 ABG HCO3 ABG O2 Saturation ABG Base Excess ABG Hemoglobin Oxyhemoglobin Sodium Potassium 3.2 L Chloride 96.7 L Carbon Dioxide BUN Creatinine Glucose 125 H POC Glucose 118 H 106 H Hemoglobin A1c Lactic Acid Calcium Phosphorus Magnesium Ferritin AST ALT Alkaline Phosphatase Lactate Dehydrogenase Troponin T C-Reactive Protein Total Protein Albumin LDL Cholesterol Direct Urine Creatinine Urine Total Protein Salicylates Acetaminophen Crossmatch 11/25/21 11/25/21 11/25/21 11:49 15:41 20:51 WBC RBC Hgb Hct MCH RDW Plt Count Lymph % (Auto) [place] % (Auto) Lymph # (Auto) [place] # (Auto) Seg Neutrophils % Seg Neuts % (Manual) Lymphocytes % (Manual) Monocytes % (Manual) Nucleated RBC % Seg Neutrophils # Seg Neutrophils # Man Monocytes # (Manual) Eosinophils # (Manual) Basophils # (Manual) PT INR APTT D-Dimer Heparin Anti-Xa Level ABG pH ABG pO2 ABG HCO3 ABG O2 Saturation ABG Base Excess ABG Hemoglobin Oxyhemoglobin Sodium Potassium Chloride Carbon Dioxide BUN Creatinine Glucose POC Glucose 119 H 110 H 109 H Hemoglobin A1c Lactic Acid Calcium Phosphorus Magnesium Ferritin AST ALT Alkaline Phosphatase Lactate Dehydrogenase Troponin T C-Reactive Protein Total Protein Albumin LDL Cholesterol Direct Urine Creatinine Urine Total Protein Salicylates Acetaminophen Crossmatch 11/26/21 11/26/2122 07:33 11:20 17:03 WBC RBC Hgb Hct MCH RDW Plt Count Lymph % (Auto) [place] % (Auto) Lymph # (Auto) [place] # (Auto) Seg Neutrophils % Seg Neuts % (Manual) Lymphocytes % (Manual) Monocytes % (Manual) Nucleated RBC % Seg Neutrophils # Seg Neutrophils # Man Monocytes # (Manual) Eosinophils # (Manual) Basophils # (Manual) PT INR APTT D-Dimer Heparin Anti-Xa Level ABG pH ABG pO2 ABG HCO3 ABG O2 Saturation ABG Base Excess ABG Hemoglobin Oxyhemoglobin Sodium Potassium Chloride Carbon Dioxide BUN Creatinine Glucose POC Glucose 158 H 162 H 144 H Hemoglobin A1c Lactic Acid Calcium Phosphorus Magnesium Ferritin AST ALT Alkaline Phosphatase Lactate Dehydrogenase Troponin T C-Reactive Protein Total Protein Albumin LDL Cholesterol Direct Urine Creatinine Urine Total Protein Salicylates Acetaminophen Crossmatch 11/26/21 11/27/21 11/27/21 21:51 07:44 12:20 WBC RBC Hgb Hct MCH RDW Plt Count Lymph % (Auto) [place] % (Auto) Lymph # (Auto) [place] # (Auto) Seg Neutrophils % Seg Neuts % (Manual) Lymphocytes % (Manual) Monocytes % (Manual) Nucleated RBC % Seg Neutrophils # Seg Neutrophils # Man Monocytes # (Manual) Eosinophils # (Manual) Basophils # (Manual) PT INR APTT D-Dimer Heparin Anti-Xa Level ABG pH ABG pO2 ABG HCO3 ABG O2 Saturation ABG Base Excess ABG Hemoglobin Oxyhemoglobin Sodium Potassium Chloride Carbon Dioxide BUN Creatinine Glucose POC Glucose 132 H 129 H 128 H Hemoglobin A1c Lactic Acid Calcium Phosphorus Magnesium Ferritin AST ALT Alkaline Phosphatase Lactate Dehydrogenase Troponin T C-Reactive Protein Total Protein Albumin LDL Cholesterol Direct Urine Creatinine Urine Total Protein Salicylates Acetaminophen Crossmatch 11/27/21 11/27/21 11/28/21 16:44 21:35 07:54 WBC RBC Hgb Hct MCH RDW Plt Count Lymph % (Auto) [place] % (Auto) Lymph # (Auto) [place] # (Auto) Seg Neutrophils % Seg Neuts % (Manual) Lymphocytes % (Manual) Monocytes % (Manual) Nucleated RBC % Seg Neutrophils # Seg Neutrophils # Man Monocytes # (Manual) Eosinophils # (Manual) Basophils # (Manual) PT INR APTT D-Dimer Heparin Anti-Xa Level ABG pH ABG pO2 ABG HCO3 ABG O2 Saturation ABG Base Excess ABG Hemoglobin Oxyhemoglobin Sodium Potassium Chloride Carbon Dioxide BUN Creatinine Glucose POC Glucose 126 H 131 H 124 H Hemoglobin A1c Lactic Acid Calcium Phosphorus Magnesium Ferritin AST ALT Alkaline Phosphatase Lactate Dehydrogenase Troponin T C-Reactive Protein Total Protein Albumin LDL Cholesterol Direct Urine Creatinine Urine Total Protein Salicylates Acetaminophen Crossmatch 11/28/21 11/28/21 11/28/21 11:27 11:56 16:34 WBC 12.3 H RBC 3.18 L Hgb 9.2 L Hct 27.8 L MCH RDW 16.1 H Plt Count Lymph % (Auto) 10.9 L [place] % (Auto) 13.7 H Lymph # (Auto) [place] # (Auto) 1.7 H Seg Neutrophils % 72.2 H Seg Neuts % (Manual) Lymphocytes % (Manual) Monocytes % (Manual) Nucleated RBC % Seg Neutrophils # 8.9 H Seg Neutrophils # Man Monocytes # (Manual) Eosinophils # (Manual) Basophils # (Manual) PT INR APTT D-Dimer Heparin Anti-Xa Level ABG pH ABG pO2 ABG HCO3 ABG O2 Saturation ABG Base Excess ABG Hemoglobin Oxyhemoglobin Sodium Potassium Chloride Carbon Dioxide BUN Creatinine Glucose POC Glucose 131 H 123 H Hemoglobin A1c Lactic Acid Calcium Phosphorus Magnesium Ferritin AST ALT Alkaline Phosphatase Lactate Dehydrogenase Troponin T C-Reactive Protein Total Protein Albumin LDL Cholesterol Direct Urine Creatinine Urine Total Protein Salicylates Acetaminophen Crossmatch 11/28/21 11/28/21 11/29/21 19:35 21:32 07:33 WBC RBC Hgb Hct MCH RDW Plt Count Lymph % (Auto) [place] % (Auto) Lymph # (Auto) [place] # (Auto) Seg Neutrophils % Seg Neuts % (Manual) Lymphocytes % (Manual) Monocytes % (Manual) Nucleated RBC % Seg Neutrophils # Seg Neutrophils # Man Monocytes # (Manual) Eosinophils # (Manual) Basophils # (Manual) PT INR APTT D-Dimer Heparin Anti-Xa Level 0.12 L ABG pH ABG pO2 ABG HCO3 ABG O2 Saturation ABG Base Excess ABG Hemoglobin Oxyhemoglobin Sodium Potassium Chloride Carbon Dioxide BUN Creatinine Glucose POC Glucose 110 H 108 H Hemoglobin A1c Lactic Acid Calcium Phosphorus Magnesium Ferritin AST ALT Alkaline Phosphatase Lactate Dehydrogenase Troponin T C-Reactive Protein Total Protein Albumin LDL Cholesterol Direct Urine Creatinine Urine Total Protein Salicylates Acetaminophen Crossmatch 11/29/21 11/29/21 11/29/21 11:29 13:51 15:25 WBC 13.0 H RBC 3.41 L Hgb 9.5 L Hct 29.9 L MCH RDW 16.2 H Plt Count Lymph % (Auto) 11.1 L [place] % (Auto) 15.5 H Lymph # (Auto) [place] # (Auto) 2.0 H Seg Neutrophils % 71.8 H Seg Neuts % (Manual) Lymphocytes % (Manual) Monocytes % (Manual) Nucleated RBC % Seg Neutrophils # 9.3 H Seg Neutrophils # Man Monocytes # (Manual) Eosinophils # (Manual) Basophils # (Manual) PT INR APTT D-Dimer Heparin Anti-Xa Level ABG pH ABG pO2 ABG HCO3 ABG O2 Saturation ABG Base Excess ABG Hemoglobin Oxyhemoglobin Sodium Potassium Chloride Carbon Dioxide BUN Creatinine Glucose POC Glucose 136 H 123 H Hemoglobin A1c Lactic Acid Calcium Phosphorus Magnesium Ferritin AST ALT Alkaline Phosphatase Lactate Dehydrogenase Troponin T C-Reactive Protein Total Protein Albumin LDL Cholesterol Direct Urine Creatinine Urine Total Protein Salicylates Acetaminophen Crossmatch 11/29/21 11/29/21 11/29/21 18:50 18:50 20:16 WBC RBC Hgb Hct MCH RDW Plt Count Lymph % (Auto) [place] % (Auto) Lymph # (Auto) [place] # (Auto) Seg Neutrophils % Seg Neuts % (Manual) Lymphocytes % (Manual) Monocytes % (Manual) Nucleated RBC % Seg Neutrophils # Seg Neutrophils # Man Monocytes # (Manual) Eosinophils # (Manual) Basophils # (Manual) PT INR APTT D-Dimer Heparin Anti-Xa Level 0.21 L ABG pH ABG pO2 ABG HCO3 ABG O2 Saturation ABG Base Excess ABG Hemoglobin Oxyhemoglobin Sodium 126 L Potassium Chloride 86.3 L Carbon Dioxide BUN 38 H Creatinine 3.6 H Glucose 153 H POC Glucose 166 H Hemoglobin A1c Lactic Acid Calcium Phosphorus Magnesium Ferritin AST ALT Alkaline Phosphatase Lactate Dehydrogenase Troponin T C-Reactive Protein Total Protein Albumin LDL Cholesterol Direct Urine Creatinine Urine Total Protein Salicylates Acetaminophen Crossmatch 11/30/21 11/30/21 11/30/21 05:14 07:35 11:15 WBC RBC Hgb 8.7 L Hct 26.8 L MCH RDW Plt Count Lymph % (Auto) [place] % (Auto) Lymph # (Auto) [place] # (Auto) Seg Neutrophils % Seg Neuts % (Manual) Lymphocytes % (Manual) Monocytes % (Manual) Nucleated RBC % Seg Neutrophils # Seg Neutrophils # Man Monocytes # (Manual) Eosinophils # (Manual) Basophils # (Manual) PT INR APTT D-Dimer Heparin Anti-Xa Level ABG pH ABG pO2 ABG HCO3 ABG O2 Saturation ABG Base Excess ABG Hemoglobin Oxyhemoglobin Sodium Potassium Chloride Carbon Dioxide BUN Creatinine Glucose POC Glucose 114 H 119 H Hemoglobin A1c Lactic Acid Calcium Phosphorus Magnesium Ferritin AST ALT Alkaline Phosphatase Lactate Dehydrogenase Troponin T C-Reactive Protein Total Protein Albumin LDL Cholesterol Direct Urine Creatinine Urine Total Protein Salicylates Acetaminophen Crossmatch 11/30/21 11/30/21 11/30/21 15:26 17:10 18:51 WBC RBC Hgb Hct MCH RDW Plt Count Lymph % (Auto) [place] % (Auto) Lymph # (Auto) [place] # (Auto) Seg Neutrophils % Seg Neuts % (Manual) Lymphocytes % (Manual) Monocytes % (Manual) Nucleated RBC % Seg Neutrophils # Seg Neutrophils # Man Monocytes # (Manual) Eosinophils # (Manual) Basophils # (Manual) PT INR APTT D-Dimer Heparin Anti-Xa Level 0.10 L ABG pH ABG pO2 ABG HCO3 ABG O2 Saturation ABG Base Excess ABG Hemoglobin Oxyhemoglobin Sodium 126 L Potassium Chloride 86.5 L Carbon Dioxide BUN 42 H Creatinine 4.0 H Glucose 155 H POC Glucose 157 H Hemoglobin A1c Lactic Acid Calcium 8.0 L Phosphorus Magnesium Ferritin AST ALT Alkaline Phosphatase Lactate Dehydrogenase Troponin T C-Reactive Protein Total Protein Albumin LDL Cholesterol Direct Urine Creatinine Urine Total Protein Salicylates Acetaminophen Crossmatch 11/30/21 12/01/21 12/01/21 20:04 00:39 09:38 WBC 25.2 H RBC 3.06 L Hgb 8.5 L Hct 26.8 L MCH RDW 16.1 H Plt Count Lymph % (Auto) [place] % (Auto) Lymph # (Auto) [place] # (Auto) Seg Neutrophils % Seg Neuts % (Manual) 80.0 H Lymphocytes % (Manual) 9.0 L Monocytes % (Manual) Nucleated RBC % Seg Neutrophils # Seg Neutrophils # Man 20.2 H Monocytes # (Manual) 1.3 H Eosinophils # (Manual) Basophils # (Manual) PT INR APTT D-Dimer Heparin Anti-Xa Level 0.18 L ABG pH ABG pO2 ABG HCO3 ABG O2 Saturation ABG Base Excess ABG Hemoglobin Oxyhemoglobin Sodium Potassium Chloride Carbon Dioxide BUN Creatinine Glucose POC Glucose 115 H Hemoglobin A1c Lactic Acid Calcium Phosphorus Magnesium Ferritin AST ALT Alkaline Phosphatase Lactate Dehydrogenase Troponin T C-Reactive Protein Total Protein Albumin LDL Cholesterol Direct Urine Creatinine Urine Total Protein Salicylates Acetaminophen Crossmatch 12/01/21 12/01/21 12/02/21 09:38 11:35 03:22 WBC 23.3 H RBC 2.61 L Hgb 7.5 L Hct 22.8 L MCH RDW 16.1 H Plt Count Lymph % (Auto) [place] % (Auto) Lymph # (Auto) [place] # (Auto) Seg Neutrophils % Seg Neuts % (Manual) 77.0 H Lymphocytes % (Manual) 7.0 L Monocytes % (Manual) 14.0 H Nucleated RBC % Seg Neutrophils # Seg Neutrophils # Man 17.9 H Monocytes # (Manual) 3.3 H Eosinophils # (Manual) Basophils # (Manual) 0.2 H PT INR APTT D-Dimer Heparin Anti-Xa Level ABG pH ABG pO2 ABG HCO3 ABG O2 Saturation ABG Base Excess ABG Hemoglobin Oxyhemoglobin Sodium 127 L Potassium 5.1 H Chloride 87.9 L Carbon Dioxide BUN 49 H Creatinine 4.9 H Glucose 134 H POC Glucose 109 H Hemoglobin A1c Lactic Acid Calcium 7.9 L Phosphorus Magnesium Ferritin AST ALT Alkaline Phosphatase Lactate Dehydrogenase Troponin T C-Reactive Protein Total Protein Albumin LDL Cholesterol Direct Urine Creatinine Urine Total Protein Salicylates Acetaminophen Crossmatch 12/02/21 12/02/21 12/02/21 03:22 03:22 15:40 WBC RBC Hgb Hct MCH RDW Plt Count Lymph % (Auto) [place] % (Auto) Lymph # (Auto) [place] # (Auto) Seg Neutrophils % Seg Neuts % (Manual) Lymphocytes % (Manual) Monocytes % (Manual) Nucleated RBC % Seg Neutrophils # Seg Neutrophils # Man Monocytes # (Manual) Eosinophils # (Manual) Basophils # (Manual) PT INR APTT D-Dimer Heparin Anti-Xa Level 0.15 L < 0.10 L ABG pH ABG pO2 ABG HCO3 ABG O2 Saturation ABG Base Excess ABG Hemoglobin Oxyhemoglobin Sodium 129 L Potassium Chloride 91.7 L Carbon Dioxide BUN 42 H Creatinine 4.4 H Glucose POC Glucose Hemoglobin A1c Lactic Acid Calcium 8.0 L Phosphorus 5.20 H Magnesium Ferritin AST ALT Alkaline Phosphatase Lactate Dehydrogenase Troponin T C-Reactive Protein Total Protein Albumin LDL Cholesterol Direct Urine Creatinine Urine Total Protein Salicylates Acetaminophen Crossmatch 12/02/21 12/02/21 12/03/21 17:45 21:03 05:24 WBC 22.3 H RBC 2.69 L Hgb 7.4 L Hct 23.5 L MCH RDW 16.5 H Plt Count Lymph % (Auto) [place] % (Auto) Lymph # (Auto) [place] # (Auto) Seg Neutrophils % Seg Neuts % (Manual) 85.5 H Lymphocytes % (Manual) 6.0 L Monocytes % (Manual) Nucleated RBC % Seg Neutrophils # Seg Neutrophils # Man 19.1 H Monocytes # (Manual) 1.0 H Eosinophils # (Manual) 0.7 H Basophils # (Manual) PT INR APTT D-Dimer Heparin Anti-Xa Level ABG pH ABG pO2 ABG HCO3 ABG O2 Saturation ABG Base Excess ABG Hemoglobin Oxyhemoglobin Sodium Potassium Chloride Carbon Dioxide BUN Creatinine Glucose POC Glucose 122 H 121 H Hemoglobin A1c Lactic Acid Calcium Phosphorus Magnesium Ferritin AST ALT Alkaline Phosphatase Lactate Dehydrogenase Troponin T C-Reactive Protein Total Protein Albumin LDL Cholesterol Direct Urine Creatinine Urine Total Protein Salicylates Acetaminophen Crossmatch 12/03/21 12/03/21 12/03/21 08:00 11:19 15:11 WBC RBC Hgb Hct MCH RDW Plt Count Lymph % (Auto) Mcdowell % (Auto) Lymph # (Auto) Mcdowell # (Auto) Seg Neutrophils % Seg Neuts % (Manual) Lymphocytes % (Manual) Monocytes % (Manual) Nucleated RBC % Seg Neutrophils # Seg Neutrophils # Man Monocytes # (Manual) Eosinophils # (Manual) Basophils # (Manual) PT INR APTT D-Dimer Heparin Anti-Xa Level ABG pH ABG pO2 ABG HCO3 ABG O2 Saturation ABG Base Excess ABG Hemoglobin Oxyhemoglobin Sodium 134 L Potassium Chloride 95.9 L Carbon Dioxide BUN 30 H Creatinine 3.5 H Glucose 110 H POC Glucose 108 H 117 H Hemoglobin A1c Lactic Acid Calcium Phosphorus Magnesium Ferritin AST ALT Alkaline Phosphatase Lactate Dehydrogenase Troponin T C-Reactive Protein Total Protein Albumin LDL Cholesterol Direct Urine Creatinine Urine Total Protein Salicylates Acetaminophen Crossmatch 12/03/21 12/04/21 12/04/21 20:32 06:15 06:15 WBC 18.5 H RBC 2.88 L Hgb 8.0 L Hct 25.6 L MCH RDW 16.4 H Plt Count Lymph % (Auto) Mcdowell % (Auto) Lymph # (Auto) Mcdowell # (Auto) Seg Neutrophils % Seg Neuts % (Manual) 74.0 H Lymphocytes % (Manual) 11.0 L Monocytes % (Manual) 9.0 H Nucleated RBC % Seg Neutrophils # Seg Neutrophils # Man 13.7 H Monocytes # (Manual) 1.7 H Eosinophils # (Manual) Basophils # (Manual) PT INR APTT D-Dimer Heparin Anti-Xa Level ABG pH ABG pO2 ABG HCO3 ABG O2 Saturation ABG Base Excess ABG Hemoglobin Oxyhemoglobin Sodium 135 L Potassium Chloride 96.9 L Carbon Dioxide BUN 19 H Creatinine 2.8 H Glucose 102 H POC Glucose 122 H Hemoglobin A1c Lactic Acid Calcium Phosphorus Magnesium Ferritin AST ALT Alkaline Phosphatase Lactate Dehydrogenase Troponin T C-Reactive Protein Total Protein Albumin LDL Cholesterol Direct Urine Creatinine Urine Total Protein Salicylates Acetaminophen Crossmatch 12/04/21 12/04/21 12/04/21 08:14 11:17 15:58 WBC RBC Hgb Hct MCH RDW Plt Count Lymph % (Auto) Mcdowell % (Auto) Lymph # (Auto) Mcdowell # (Auto) Seg Neutrophils % Seg Neuts % (Manual) Lymphocytes % (Manual) Monocytes % (Manual) Nucleated RBC % Seg Neutrophils # Seg Neutrophils # Man Monocytes # (Manual) Eosinophils # (Manual) Basophils # (Manual) PT INR APTT D-Dimer Heparin Anti-Xa Level ABG pH ABG pO2 ABG HCO3 ABG O2 Saturation ABG Base Excess ABG Hemoglobin Oxyhemoglobin Sodium Potassium Chloride Carbon Dioxide BUN Creatinine Glucose POC Glucose 106 H 125 H 113 H Hemoglobin A1c Lactic Acid Calcium Phosphorus Magnesium Ferritin AST ALT Alkaline Phosphatase Lactate Dehydrogenase Troponin T C-Reactive Protein Total Protein Albumin LDL Cholesterol Direct Urine Creatinine Urine Total Protein Salicylates Acetaminophen Crossmatch 12/04/21 12/05/21 12/05/21 20:25 05:05 08:15 WBC 19.4 H RBC 2.89 L Hgb 8.1 L Hct 25.6 L MCH RDW 16.3 H Plt Count Lymph % (Auto) Mcdowell % (Auto) Lymph # (Auto) Mcdowell # (Auto) Seg Neutrophils % Seg Neuts % (Manual) Lymphocytes % (Manual) 13.0 L Monocytes % (Manual) 13.0 H Nucleated RBC % Seg Neutrophils # Seg Neutrophils # Man 12.4 H Monocytes # (Manual) 2.5 H Eosinophils # (Manual) 0.8 H Basophils # (Manual) PT INR APTT D-Dimer Heparin Anti-Xa Level ABG pH ABG pO2 ABG HCO3 ABG O2 Saturation ABG Base Excess ABG Hemoglobin Oxyhemoglobin Sodium Potassium Chloride Carbon Dioxide BUN Creatinine Glucose POC Glucose 130 H 107 H Hemoglobin A1c Lactic Acid Calcium Phosphorus Magnesium Ferritin AST ALT Alkaline Phosphatase Lactate Dehydrogenase Troponin T C-Reactive Protein Total Protein Albumin LDL Cholesterol Direct Urine Creatinine Urine Total Protein Salicylates Acetaminophen Crossmatch 12/05/21 11:18 WBC RBC Hgb Hct MCH RDW Plt Count Lymph % (Auto) Mcdowell % (Auto) Lymph # (Auto) Mcdowell # (Auto) Seg Neutrophils % Seg Neuts % (Manual) Lymphocytes % (Manual) Monocytes % (Manual) Nucleated RBC % Seg Neutrophils # Seg Neutrophils # Man Monocytes # (Manual) Eosinophils # (Manual) Basophils # (Manual) PT INR APTT D-Dimer Heparin Anti-Xa Level ABG pH ABG pO2 ABG HCO3 ABG O2 Saturation ABG Base Excess ABG Hemoglobin Oxyhemoglobin Sodium Potassium Chloride Carbon Dioxide BUN Creatinine Glucose POC Glucose 114 H Hemoglobin A1c Lactic Acid Calcium Phosphorus Magnesium Ferritin AST ALT Alkaline Phosphatase Lactate Dehydrogenase Troponin T C-Reactive Protein Total Protein Albumin LDL Cholesterol Direct Urine Creatinine Urine Total Protein Salicylates Acetaminophen Crossmatch Allied health notes reviewed: nursing
[2021-12-05] MEDS ORDERED: MINERAL OIL ENEMA 133 ML PR ONE (13:32)
[2021-12-05] MEDS: METOPROLOL TARTRATE 50 MG TAB PO SCH ×2 (15:57→22:39)
[2021-12-05] MEDS ORDERED: AMIODARONE 900 MG in DEXTROSE 5% IN WATER 482 ML IV SCH ×2 (17:00→19:00)
[2021-12-05] MEDS: MELATONIN 5 MG TAB PO PRN (22:38)
[2021-12-06] MEDS: HEPARIN/ 0.45% NACL DRIP 25,000 UNIT/500 ML BAG IV SCH (01:42)
[2021-12-06 05:50] LABS: Calcium 8.6 mg/dL (8.4-10.2)
[2021-12-06 05:51] LABS: Hematocrit 25.7 % (30.3-42.9)
[2021-12-06] MEDS: GABAPENTIN 100 MG CAP PO SCH ×3 (06:28→22:36)
--- NOTE | 2021-12-06 08:26 | Progress Note ---
Assessment and Plan Assessment: Acute Renal Failure secondary to Ischemic ATN secondary to Sepsis, Cardiac arrest and Hypotension S/P Cardiac Arrest Acute Hypoxemic Respiratory Failure Acute DVT Sepsis CHF Anemia Hyperkalemia Hyponatremia Plan: Renal labs reviewed. Serum creatinine 4.0 today, yesterday's was 2.8, No UOP recorded S/P hemodialysis yesterday for UF only. HD today for both UF and clearance. 24 hour urine collection ordered for creatinine clearance but not making much urine Patient's renal failure is likely Acute from Ischemic ATN and she may at some point have renal recovery, will monitor closely Will give Lasix 40 mg IV daily for now IV Albumin prn to help with BP support during HD if needed On Midodrine 10 mg po TID CHF-LVEF 25-30 % Anemia-Start Epogen 10,000 units TIW Obtain daily weights Strict I/O's daily Renally dose medications Avoid nephrotoxic agents Continue to monitor renal function closely Assess dialysis needs daily Plan of care reviewed by Dr. Giordano Subjective Date of service: 12/06/21 Principal diagnosis: AHRF; Cardiac arrest; R. pneumothorax; pneumonia; AMS; DVT's; SIERRA; Obesity Interval history: Patient seen lying in bed. Patient is wake and alert and oriented x 3. No family at bedside. Objective - Vital Signs Vital signs: Vital Signs - 12hr 12/05/21 12/06/21 12/06/21 22:39 00:17 04:00 Temperature 98.4 F Pulse Rate 124 H 95 H 95 H Respiratory 18 Rate Blood Pressure 134/90 108/63 O2 Sat by Pulse 92 Oximetry 12/06/21 04:24 Temperature 98.1 F Pulse Rate 111 H Respiratory 19 Rate Blood Pressure 123/86 O2 Sat by Pulse 97 Oximetry - General Appearance General appearance: well-developed, appears stated age EENT: ATNC, PERRL, hearing intact, vision intact Neck: no JVD, supple Respiratory: Present: Decreased Breath Sounds Cardiology: S1S2 Gastrointestinal: normoactive bowel sounds Integumentary: warm and dry Neurologic: alert and oriented x3 Musculoskeletal: joint swelling, other (positive edema) - Lab 12/06/21 04:36 12/06/21 04:36 Most recent lab results ABG pH 7.450 pH Units (7.350-7.450) 12/01/21 Unknown ABG pCO2 38.0 mm Hg 12/01/21 Unknown ABG pO2 88.9 mm Hg (80.0-90.0) 12/01/21 Unknown ABG HCO3 25.8 mmol/L (20.0-26.0) 12/01/21 Unknown ABG O2 Saturation 97.2 % (95.0-99.0) 12/01/21 Unknown Calcium 8.6 mg/dL (8.4-10.2) 12/06/21 04:36 Phosphorus 5.20 mg/dL (2.5-4.5) H 12/02/21 03:22 Magnesium 1.60 mg/dL (1.7-2.3) L 11/19/21 14:38 Urine Creatinine 190.9 mg/dL (0.1-20.0) H 11/04/21 Unknown Urine Sodium 10 mmol/L 11/04/21 Unknown Urine Total Protein 172 mg/dL (5-11.8) H 11/04/21 Unknown Medications & Allergies - Medications Allergies/Adverse Reactions: Allergies No Known Allergies Allergy (Verified 10/29/21 14:01) Home Medications: Home Medications Medication Instructions Recorded Confirmed Last Taken Type Unobtainable 11/10/21 11/10/21 Unknown History Active Medications: Generic Name Dose Route Start Last Admin Trade Name Freq PRN Reason Stop Dose Admin Acetaminophen 650 mg 10/29/21 17:04 11/12/21 22:53 Acetaminophen 650 Mg Rect Supp CA 650 mg Q6H PRN Administration Pain MILD(1-3)/Fever >100.5/NIEVES Acetaminophen 650 mg 11/19/21 16:35 12/02/21 18:20 Acetaminophen 325 Mg Tab PO 650 mg Q6HR PRN Administration PAIN Albumin Human 50 gm 12/02/21 11:00 12/02/21 11:55 Albumin Human 25% (25 Gm/100 Ml) Inj IV 50 gm ZACH PRN Administration Hypotension Alprazolam 0.25 mg 11/14/21 14:29 12/03/21 23:02 Alprazolam 0.25 Mg Tab PO 0.25 mg Q8H PRN Administration Anxiety Docusate Sodium 100 mg 11/18/21 15:00 12/05/21 22:39 Docusate Sodium 100 Mg Cap PO 100 mg BID RAMON Administration Famotidine 10 mg 11/06/21 10:00 03/14/22 22:39 Famotidine 10 Mg Tab PO 10 mg BID RAMON Administration Gabapentin 100 mg 11/28/21 14:00 12/06/21 06:28 Gabapentin 100 Mg Cap PO 100 mg Q8HR RAMON Administration Heparin Sodium (Porcine) 4,000 unit 12/01/21 07:50 12/02/21 17:22 Heparin 10,000 Units/10 Ml Vial 40 unit/kg (4300 unit) 4,000 unit IV Administration Q6H PRN Anti-Xa Assay < 0.1 units/ml Hydrophilic Ointment 1 applic 10/29/21 14:29 11/09/21 08:51 Lip Therapy Vaseline TP 1 applic Q2HR PRN Administration Dry Lips Heparin Sodium/Sodium Chloride 25,000 unit in 500 mls @ 30 mls/hr 11/28/21 17:00 12/06/21 01:42 Heparin/ 0.45% Nacl-25,000 Unit/500 Ml IV 1,950 units/hr TITR RAMON 39 mls/hr Administration Protocol 1,500 UNITS/HR Sodium Chloride 100 mls @ 999 mls/hr 12/01/21 14:44 Nacl 0.9% IV ZACH PRN Hypotension Amiodarone HCl 900 mg/ 500 mls @ 33.333 mls/hr 12/05/21 19:00 12/06/21 06:27 Dextrose IV 0.5 mg/min DIRECT RAMON 16.667 mls/hr Administration Protocol 1 MG/MIN Insulin Human Lispro 0 unit 11/25/21 22:00 12/05/21 18:18 Insulin Lispro 100 Unit/Ml SUB-Q Not Given ACHS [facility] Protocol Lactulose 20 gm 11/18/21 14:43 11/29/21 21:20 Lactulose 20 Gm/30 Ml Oral Liqd PO 20 gm Q6H PRN Administration Constipation Melatonin 10 mg 11/22/21 17:31 12/05/21 22:38 Melatonin 5 Mg Tab PO 10 mg QHS PRN Administration Sleep Metoprolol Tartrate 50 mg 12/05/21 12:00 12/05/21 22:39 Metoprolol Tartrate 50 Mg Tab PO 50 mg BID RAMON Administration Midodrine 10 mg 12/01/21 12:00 12/05/21 15:57 Midodrine 5 Mg Tab PO 10 mg TID@0800,1200,1600 RAMON Administration Morphine Sulfate 1 mg 11/28/21 15:00 12/03/21 21:43 Morphine 2 Mg/1 Ml Inj IV 1 mg Q4H PRN Administration Pain, Moderate (4-6) Multi-Ingred Cream/Lotion/Oil/Oint 1 applic 10/29/21 14:29 11/06/21 09:25 Mineral Oil/Petrolatum, White Ophth Oint 3.5 Gm OU 1 applic Q4HR PRN Administration Dry Eye(s) Oxycodone/Acetaminophen 1 tab 11/27/21 14:31 12/05/21 22:39 Oxycodone /Acetaminophen 5-325mg Tab PO 1 tab Q4H PRN Administration Pain, Moderate (4-6) Polyethylene Glycol 17 gm 11/20/21 12:47 11/25/21 08:30 Polyethylene Glycol 3350 17 Gm Powder PO 17 gm QDAY PRN Administration Constipation Senna/Docusate Sodium 1 tab 11/16/21 22:00 12/05/21 22:39 Sennosides/Docusate Sodium 8.6/50 Mg Tab PO 1 tab BID RAMON Administration Sodium Chloride 10 ml 10/29/21 22:00 12/05/21 22:40 Sodium Chloride 0.9% 10 Ml Flush Syringe IV 10 ml BID RAMON Administration Sodium Chloride 10 ml 10/29/21 17:04 Sodium Chloride 0.9% 10 Ml Flush Syringe IV PRN PRN LINE FLUSH
[2021-12-06] MEDS: LACTULOSE 20 GM/30 ML ORAL LIQD PO PRN ×2 (08:30→15:26)
[2021-12-06] MEDS: MIDODRINE 5 MG TAB PO SCH ×2 (08:53→15:09)
[2021-12-06] MEDS: INSULIN LISPRO 100 UNIT/ML SUB-Q SCH ×3 (08:57→22:00)
[2021-12-06] MEDS: METOPROLOL TARTRATE 50 MG TAB PO SCH ×2 (09:04→22:35)
[2021-12-06] MEDS: FAMOTIDINE 10 MG TAB PO SCH ×2 (09:05→22:35)
[2021-12-06] MEDS: SENNOSIDES/DOCUSATE SODIUM 8.6/50 MG TAB PO SCH ×2 (09:05→22:35)
[2021-12-06] MEDS: DOCUSATE SODIUM 100 MG CAP PO SCH ×2 (09:05→22:36)
[2021-12-06] MEDS: FUROSEMIDE 40 MG/4 ML INJ IV SCH (10:14)
--- NOTE | 2021-12-06 10:52 | Progress Note ---
Assessment and Plan Assessment and plan: 66 YO Female with Obesity [facility] the [facility] and lost consciousness. Witnesses began CPR. EMS was notified and upon arrival the patient was found to be in distress without perfusing cardiac rhythm. Patient initiated on ACLS protocol and subsequently intubated in the field and transported to ED. The patient regained spontaneous circulation during transport. She was found to have acute hypoxemic respiratory failure, septic shock suspected secondary to aspiration pneumonia, metabolic acidosis, toxic metabolic encephalopathy, shock liver, and cardiac arrest with return of perfusing cardiac rhythm after initiation of ACLS protocol. Patient initiated on sepsis protocol as well as pneumonia protocol. Patient admitted to ICU. Patient improved, extubated on 11/11 and transferred to floor on 11/19. s/p cardiac arrest, [facility], HFrEF, shock/hypotension resolved Atrial fibrillation/atrial flutter -Cardiac arrest and [facility] with ROSC -Cardiology consulted, appreciate recommendations - S/p Cardizem gtt- d/c due to low EF; now on PO Amio -s/p vasopressor support with levophed -Echocardiogram shows left ventricular systolic function severely decreased, LVEF 25 to 30%, no pericardial effusion -proBNP 5622 -Continue Lasix 20 mg twice daily, BB, spironolactone, losartan -No significant volume overload clinically Acute hypoxic respiratory failure, right pneumothorax, Angioedema (resolved), pulmonary edema -[facility] consulted, appreciate recommendations -Intubated on 10/29 and extubated on 11/11 -Bipap q HS and prn, at high risk for KOLBY with morbid obesity -NC during day -s/p right chest tube for pneumothorax -s/p steroids for angioedema -On Lasix for pulmonary edema. Transaminitis likely shocked liver - resolved Acute kidney injury likely secondary to vasomotor nephropathy, hypernatremia -Nephrology consulted, appreciate recommendations -Krishna replaced 11/05 urinary retention -FeNa 0.05 indicating pre-renal -SIERRA and hyponatremia resolved. Creatinine 1.0 on Lasix IV Shock cardiogenicsuspected sepsis -Fever was as high as 102 with a leukocytosis Blood, urine and sputum cultures negative -COVID-19 PCR negative -S/p empiric antibiotic therapy for possible pneumonia with Rocephin and azithromycin () -S/p Levophed gtt for hypotension -Fever and leukocytosis resolved -Monitor WBC and temperature curve Acute Metabolic encephalopathy, agitation/anxiety -Etiology likely from a cardiac arrest, shock and cerebral hypoperfusion CT head no acute focal parenchymal lesion in the brain -Neurology consulted, appreciate recommendations -EEG and MRI noted, Neuro recommend to cut down on sedation as possible Mental status significantly improved, currently fairly alert and oriented. Answers appropriately. Acute DVT in the left posterior tibial vein and bilateral peroneal veins, Anemia, retroperitoneal bleed -D-dimer greater than 10,000 -CTA chest with no evidence of PE -Bilateral lower extremity ultrasound positive for DVT -Heparin gtt on hold d/t anemia, received PRBC x4 -vasuclar surgery consulted, appreciate recommendations -recommended multiphasic CT angio of the abdomen and pelvis with and without contrast if H/H drops and did not recommend IVC filter at this time as the DVTs are infrapopliteal and recommends a follow-up DVT study weekly for 2 weeks. Repeat venous duplex ultrasound on 11/21 showed progression of left peroneal DVT extending into popliteal vein. Vascular surgery completed IVC filter placement on 11/22. -Trend CBC -SCDs to BLE while in bed -Transfuse hemoglobin less than 7 -Monitor for signs of bleeding -Hemoglobin stable, 8.6 Hypertension, not able be controlled Increase losartan 200 mg daily and add hydralazine as needed. Hyperglycemia ,resolved) -Avoid hypoglycemia -Hbg A1C 6.7 -SSI and lantus q hs (titrate as needed) -Accu-Cheks q. 6 Morbid obesity High risk for KOLBY On nightly BiPAP Deconditioning PT/OT Hospital Course to Date: 10/30: Intubated and sedated, on fentanyl gtt. Open eyes spontaneously but does not follow any commands. On vasopressors, titrate as tolerated for MAP above 65. Patient febrile overnight, continue empiric IV Abx, culture data and COVID PCR pending. Patient is also s/p CT placement due to spontaneous pneumothorax. 2D echo is pending and Cardiology is consulted. 10/31: Patient remains intubated and following commands. Levophed drip stopped and potassium repleted. Patient started on tube feeding. Remains in soft bilateral restraints. 11/01: RN noted ST changes on BSM and 12 lead EKG obtained which showed ST. Given Ativan 1mg for agitation as she is maxed on fentanyl drip and IV push fentanyl did not seem to help. Patient was started on CPAP this morning by RT but remained on fentanyl drip and was having periods of apnea. Plan was to retry CPAP again in the p.m. with sedation off. 11/02: Rate increased r/t hypercapnea on ABG, sedation reduced. Given kionex for hyperkalemia and was started on levophed overnight for hypotension. 11/03: Overnight patient had tachycardia and was given Cardizem and Lopressor. Lopressor was repeated in the a.m. due to tachycardia. Patient will be started on amiodarone with a bolus per cardiology. Patient started on normal saline per liter per [facility] and steroids for angioedema. Noted to have bright red blood when suctioned from oh ETT. Remains on heparin drip as H/H is stable for now. Will reevaluate. Fentanyl drip was restarted last night due to agitation. Dr. Flores updated family today 11/04: Patient was sedated on fentanyl however off sedation is able to follow commands, a.m. labs completed in the p.m. and show hyperkalemia with increased renal function studies. Nephrology, neurology consulted by [facility]. Given Kayexalate, insulin and D50 for hyperkalemia. Patient remains on amiodarone. 11/05: Patient needed to be sedated on fentanyl again to today. overnight krishna was replaced. Hyperkalemia->given kionex 60 for 5.6. Repeat K 6-> Dr. Grant informed and requested bumex, kionex, insulin, d50, calcium gluconate and sodium bicarb with repeat BMP in 2 hours which were placed. HR remains elevated. 11/06: Patient remained in atrial fibrillation/atrial flutter with heart rate in the 150s despite being on amnio drip and was given amnio bolus, Cardizem bolus and started on Cardizem drip by cardiology. Patient is on beta-blockers p.o. scheduled and to feedings changed to Nepro. Kayexalate was given in the morning by nephrology due to hyperkalemia. 11/07: Patient is only responsive to mild stimuli, precedex added in an attempt to wean off fentanyl gtt to better assess her mental status. Neurology also on consult, pending MRI and EEG. Patient remains in Aflutter this am, HR in the 80 to 90s, still on amiodarone and heparin gtt. 11/08: Fentanyl gtt is off, only on precedex gtt. Patient is still not following any commands. MRI brain and EEG completed. Neuro recommendations noted, sedatives agents decreased. FWF added for hypernatremia and low K repleted, repe at labs ordered. Placed a call and spoke with patient's daughter, Eva Brown . She was updated on patient's conditions and status. All questions and concerns were voiced at this time. 11/09: Patient is awake and alert this am, following commands and appropriate. Remains on precedex gtt, plan for possible PST today. Hypertensive overnight, meds adjusted by Cardio and PRN Hydralazine added for SBP greater than 160. CT dislodged overnight, CXR is stable with no significant change. F/U CXR in the am. Patient's daughter, Eva Brown, visited with patient. She was updated on patient's status and goal of care for today. All questions and concerns were voiced at this time. 11/10: Mentation remains intact, still on precedex gtt. This am CXR noted still with fluid overload s/p X1 dose of IV lasix, good response from IV lasix overnight. Hypernatremia improved, D5W d/dayday. Still with persistent hypokalemia, continue electrolytes replacement and frequent lab check. Daily IV lasix and aldactone added by Cardio. Patient is also with persistent low grade fevers overnight, leukocytosis with mild improvement this am. Will get a repeat sputum culture, hold off on IV abx for now. Consider ID consult if fevers and leukocytosis persist. Patient tolerated PST X4hrs yesterday. PST again today, plan to wean to extubate if tolerated. 11/11: IAM overnight. Off precedex gtt and tolerated PST this am. Plan to wean to extubate today. Additional IV lasix given, plan to keep patient at a net negative balance for better lung compliance. F/U CXR in the am. K improved this am, repeat BMP this afternoon since diuresing. Remains with low grade fevers, leukocytosis downtrending, will continue to monitor. Speech/PT/OT ordered 11/12: S/p extubation, now stable on 3L NC. This am CXR noted with no significant changes, lasix changed to IV X4days BID. Drop in H&H this am, and Lt. flank ecchymosis noted. Heparin gtt on hold for now and orders placed for 1 unit of PRBCs and Ct Abd/Pelvis w/o con to r/o retroperitoneal bleed. Pending speech swallow eval, keep patient NPO for now. Patient is stable for IMCU status 11/13: Patient with increased WOB and tachycardia this am, patient was placed on Bipap and precedex gtt was resumed. CXR with mild improvement. CT Abd/Pelvis also reviewed large hematomas noted at the Lt. retroperitoneum and left posterior lateral abdominal wall. Heparin gtt is already on hold, patient is hemodynamically stable. Vascular Surgery consulted for possible IVC filter eval. Patient s/p 2units of PRBCs, will continue to trend H&H and transfuse if hbg is less than 7. Worsening renal function this am, IF diuretic on hold for now. Patient is also febrile with spike in wbcs most likely reactive to bleed, will panculture and hold off on IV Abx for now. Patient also failed speech bedside swallow eval yesterday, NGT in placed plan to resume enteral nutrition 11/14: Patient had bilateral lower extremity Doppler ultrasound and vascular surgery has recommended multiphasic CT angio of the abdomen and pelvis with and without contrast if H/H drops and does not recommend IVC filter at this time as the DVTs are infrapopliteal and recommends a DVT study weekly for 2 weeks. FWF 250 q4 ml per nephro. Started on as needed Xanax and p.o. amiodarone. She did not pass her ST evaluation today. Will be transferred to [facility]. 11/15: Resting comfortably on encounter. Speech cleared for pureed diet. Remains on 3l satting 98 % on bedside encounter. Does not appear to be in respiratory distress. Will continue to hold AC, No ivc filter planned at this time. qweekly doppler to monitor for migration of DVT per vascular. If demonstrated, will consider IVC filter. CBC ordered for tomorrow, will continue monitoring in light of retroperitoneal hematoma. FWF increased by nephrology to 350cc q4hr d/t hypernatremia. UOP/renal function both improved. D/w cardiology, will continue amiodorone an additional 24hrs. Plan to change dosing of metoprolol. Continue to wean off of precedex. Continue xanax scheduled for anxiety. physical therapy recs noted, fernanda / ltac will discuss with CM. Continue IMCU monitoring. 11/16: Pulmonary congestion this AM. CXR ordered. Lasix 40 mg IV x 1 order this AM. Will monitor for 24 hrs. potential downgrade to medical floor tomorrow. 11/17: Persisting pulmonary congestion, was on bipap overnight into this AM. Will order additional lasix 40 mg IV x 2. CXR ordered for AM. Possible downgrade to floor tomorrow. Anticipate d/c sunday. 11/18: Patient seen and examined, continue weaning, will continue diuresis BID, discussed with daughter. 11/19: Patient seen and examined this morning doing well no acute distress noted. Lasix was increased to twice daily to 20 mg IV. Clinically improving. Patient will be transferred to telemetry today can be switched to Lasix p.o. twice daily in a.m. She has her weekly Doppler of lower extremity tomorrow vascular is following for this. She was taken off anticoagulation secondary to retroperitoneal bleed., The anticoagulation was started initially for atrial fibrillation and an infrapopliteal DVT. During her hospital stay she had a prolonged ventilator management and was successfully weaned off. She also received a total of 4 units of packed red blood cell. Hemoglobin has remained stable. Anticipate discharge in next 48 hours if continues to clinically stay stable. : Transferred from ICU on 11/19. Progressive improving. Currently awake and oriented. O2 weaned to 4 L. Hemodynamically stable. BP control being optimized. MiraLAX for constipation. Hemoglobin stable on the heparin infusion, being monitored closely with history of retroperitoneal bleed. 11/21: Patient remains mostly bedridden. She is awake and oriented on 2 L of O2. Repeat ultrasound showed extension of left peroneal DVT into popliteal vein. Heparin was discontinued for significant retroperitoneal bleed and off anticoagulation since. Vascular surgery plan for placement of IVC filter tomorrow. Patient is chest pains, palpitations, hemoptysis. She has some cough. Left lower extremity pain likely from DVT better today. Discussed with the patient, nursing staff and vascular surgery. 11/22: The infrapopliteal vein thrombosis has propagated to the left popliteal vein. Vascular surgery to perform IVC filter placement today. 11/23: Vascular surgery placed IVC filter yesterday. Continue metoprolol 100 mg p.o. twice daily, Aldactone 25 mg p.o. daily and losartan 25 mg p.o. daily. Patient still requiring BiPAP (IPAP18, EPAP8) with FiO2 of 30%. Continue to wean oxygen per pulmonary recommendations. Nurse reports patient is having vaginal bleeding. We will check serial CBC and pelvic ultrasound 11/24: I discussed with cardiology yesterday the need for a LifeVest. LifeVest is ordered and pending. Patient is s/p IVC filter placement. Continue metoprolol 100 mg p.o. twice daily, Aldactone 25 mg p.o. daily and losartan 25 mg p.o. da amy. Patient still requiring BiPAP (IPAP18, EPAP8) with FiO2 of 30%. Continue to wean oxygen per pulmonary recommendations. No further reports of vaginal bleeding. Pelvic ultrasound negative 11/25: Awaiting for LifeVest. Patient is s/p IVC filter placement. Continue metoprolol 100 mg p.o. twice daily, Aldactone 25 mg p.o. daily and losartan 25 mg p.o. daily. Patient still requiring BiPAP (IPAP18, EPAP8) with FiO2 of 30%. Continue to wean oxygen per pulmonary recommendations. 11/26: Physical therapy recommends subacute rehab. Still awaiting LifeVest. Patient is s/p IVC filter placement. Continue metoprolol 100 mg p.o. twice daily, Aldactone 25 mg p.o. daily and losartan 25 mg p.o. daily. Patient still requiring BiPAP (IPAP18, EPAP8) with FiO2 of 30% at night. Continue to wean oxygen per pulmonary recommendations. Patient currently with 2 L O2. 11/27: Physical therapy recommends subacute rehab. Patient has a LifeVest. Patient's left lower extremity pain likely related to DVT. Continue pain control. Continue metoprolol 100 mg p.o. twice daily, Aldactone 25 mg p.o. daily and losartan 25 mg p.o. daily. Patient still requiring BiPAP (IPAP18, EPAP8) with FiO2 of 30% at night. 11/28: Physical therapy recommends subacute rehab. Patient has a LifeVest. Patient continues to complain of left lower extremity pain which makes it very difficult for ambulation. Continue Percocet for pain control. Add neurontin for possible neuropathy. Etiology is likely secondary to DVT. Continue metoprolol 100 mg p.o. twice daily, Aldactone 25 mg p.o. daily and losartan 25 mg p.o. daily. Patient still requiring BiPAP (IPAP18, EPAP8) with FiO2 of 30% at night. Repeated Doppler US of LLE and will ask vascular surgery to revisit. 11/29; worsening lower extremity DVTs, vascular following, on heparin drip 11/30; low-grade fever, leukocytosis, shortness of breath, chest x-ray possible left-sided pneumonia/possible healthcare associated pneumonia Blood cultures already sent, empiric antibiotic cefepime[renal dose confirmed with pharmacist] ID consult if needed 12/01; gram-positive bacteremia preliminary, add vancomycin 1 dose, repeat cultures, consult ID Worsening renal function, nephrology initiated hemodialysis today, patient is critically ill, very poor prognosis, with multiple comorbidities And critical issues. Field Sales Specialist recommendations noted and appreciated 12/02; Gram positive bacteremia/possible HCAP and sepsis, on cefepime and 1 dose Vanco. Nephrology initiated hemodialysis, ID consult. Patient is hypotensive, pulmonary critical recommended transfer to ICU and start vasopressors for close observation overnight. Dr. Padron discussed with patient's daughter over patient's telephone and discussed in detail patient's condition, new developments sepsis, renal failure on hemodialysis anticoagulation for DVT and severe cardiomyopathy, also discussed poor prognosis, and the plans of transferring the patient to ICU for close observation. Many questions, and answered all of them. dr. Padron also discussed with granddaughter at the bedside and patient was moved to ICU, She had numerous questions answered all of them and discussed the current co ndition prognosis and treatment plan. She verbalized understanding 12/03: Patient was transferred to ICU yesterday evening for hypotension however she did not need to be started on any vasopressin therapy. Patient is on p.o. midodrine and all her antihypertensives have been held. She also received albumin bolus. Patient will be transferred to the floor today. Still complains of bilateral lower extremity pain. Patient is on cefepime and she is scheduled for dialysis today. 12/04: Some complaint of leg pain. Percocet given for pain control. Patient is very deconditioned, will need aggressive PT. Will work on d/c planning with cm. 12/05: Patient does not appear to be in distress this AM. tachycardic hr on encounter and overnight, was given diltiazem by merchandise stocker. Cardiology initiated metoprolol and amiodorone on patient this morning. She denies any pain except for discomfort in left lower extremity. Controlled with percocet. She also states that she does not have any urine output and has been constipated. Will order bowel regimen. Discharge needs discussed with CM which include Lifevest, BIPAP for nightly use, and possible set up for dialysis. She was visiting on a visa to the from [place] however is technically a citizen of [place] which makes placement a continued challenge. 12/06: Case management reports patient will need LifeVest, walker, CPAP and arrangements for outpatient hemodialysis. However, patient is uninsured. I discussed with the daughter Eva plans for home hospice. Eva reports that she is willing to have hospice to obtain additional resources but is not wanting palliative care/comfort measures. History Interval history: No new issues overnight. Hospitalist Physical - Constitutional Vitals: Temp Pulse Resp BP Pulse Ox 97.8 F 63 18 142/84 97 12/06/21 08:00 12/06/21 08:00 12/06/21 08:00 12/06/21 08:00 12/06/21 09:38 General appearance: Present: no acute distress, well-nourished, obese (Morbidly obese), other - EENT Eyes: Present: PERRL, EOM intact ENT: hearing intact, clear oral mucosa, dentition normal - Neck Neck: Present: supple, normal ROM - Respiratory Respiratory effort: normal Respiratory: bilateral: CTA - Cardiovascular Rhythm: regular Heart Sounds: Present: S1 & S2. Absent: gallop, rub - Extremities Extremities: no ischemia, No edema, Full ROM - Abdominal General gastrointestinal: soft, non-tender, non-distended, normal bowel sounds - Integumentary Integumentary: Present: clear, warm, dry - Neurologic Neurologic: CNII-XII intact, moves all extremities HEART Score - HEART Score Troponin: Troponin T 1.150 ng/mL (0.00-0.029) H* D 10/29/21 22:34 Results - Labs CBC & Chem 7: 12/06/21 04:36 12/06/21 04:36 Labs: Laboratory Last Values WBC 19.4 K/mm3 (4.5-11.0) H 12/05/21 05:05 RBC 2.89 M/mm3 (3.65-5.03) L 12/05/21 05:05 Hgb 8.0 gm/dl (10.1-14.3) L 12/06/21 04:36 Hct 25.7 % (30.3-42.9) L 12/06/21 04:36 MCV 89 fl (79-97) 12/05/21 05:05 MCH 28 pg (28-32) 12/05/21 05:05 MCHC 32 % (30-34) 12/05/21 05:05 RDW 16.3 % (13.2-15.2) H 12/05/21 05:05 Plt Count 313 K/mm3 (140-440) 12/05/21 05:05 Lymph % (Auto) 11.1 % (13.4-35.0) L 11/29/21 13:51 [place] % (Auto) 15.5 % (0.0-7.3) H 11/29/21 13:51 Eos % (Auto) 1.0 % (0.0-4.3) 11/29/21 13:51 Baso % (Auto) 0.6 % (0.0-1.8) 11/29/21 13:51 Lymph # (Auto) 1.4 K/mm3 (1.2-5.4) 11/29/21 13:51 [place] # (Auto) 2.0 K/mm3 (0.0-0.8) H 11/29/21 13:51 Eos # (Auto) 0.1 K/mm3 (0.0-0.4) 11/29/21 13:51 Baso # (Auto) 0.1 K/mm3 (0.0-0.1) 11/29/21 13:51 Add Manual Diff Complete 12/05/21 05:05 Total Counted 100 12/05/21 05:05 Seg Neutrophils % 71.8 % (40.0-70.0) H 11/29/21 13:51 Seg Neuts % (Manual) 64.0 % (40.0-70.0) 12/05/21 05:05 Band Neutrophils % 2.0 % 12/05/21 05:05 Lymphocytes % (Manual) 13.0 % (13.4-35.0) L 12/05/21 05:05 Reactive Lymphs % (Man) 0 % 12/05/21 05:05 Monocytes % (Manual) 13.0 % (0.0-7.3) H 12/05/21 05:05 Eosinophils % (Manual) 4.0 % (0.0-4.3) 12/05/21 05:05 Basophils % (Manual) 0 % (0.0-1.8) 12/05/21 05:05 Metamyelocytes % 3.0 % 12/05/21 05:05 Myelocytes % 1.0 % 12/05/21 05:05 Promyelocytes % 0 % 12/05/21 05:05 Blast Cells % 0 % 12/05/21 05:05 Nucleated RBC % Not Reportable 12/05/21 05:05 Seg Neutrophils # 9.3 K/mm3 (1.8-7.7) H 11/29/21 13:51 Seg Neutrophils # Man 12.4 K/mm3 (1.8-7.7) H 12/05/21 05:05 Band Neutrophils # 0.4 K/mm3 12/05/21 05:05 Lymphocytes # (Manual) 2.5 K/mm3 (1.2-5.4) 12/05/21 05:05 Abs React Lymphs (Man) 0.0 K/mm3 12/05/21 05:05 Monocytes # (Manual) 2.5 K/mm3 (0.0-0.8) H 12/05/21 05:05 Eosinophils # (Manual) 0.8 K/mm3 (0.0-0.4) H 12/05/21 05:05 Basophils # (Manual) 0.0 K/mm3 (0.0-0.1) 12/05/21 05:05 Metamyelocytes # 0.6 K/mm3 12/05/21 05:05 Myelocytes # 0.2 K/mm3 12/05/21 05:05 Promyelocytes # 0.0 K/mm3 12/05/21 05:05 Blast Cells # 0.0 K/mm3 12/05/21 05:05 WBC Morphology Not Reportable 12/05/21 05:05 Hypersegmented Neuts Not Reportable 12/05/21 05:05 Hyposegmented Neuts Not Reportable 12/05/21 05:05 Hypogranular Neuts Not Reportable 12/05/21 05:05 Smudge Cells Not Reportable 12/05/21 05:05 Toxic Granulation Not Reportable 12/05/21 05:05 Toxic Vacuolation Not Reportable 12/05/21 05:05 Dohle Bodies Not Reportable 12/05/21 05:05 Pelger-Huet Anomaly Not Reportable 12/05/21 05:05 Manny Rods Not Reportable 12/05/21 05:05 Platelet Estimate Consistent w auto 12/05/21 05:05 Clumped Platelets Not Reportable 12/05/21 05:05 Plt Clumps, EDTA Not Reportable 12/05/21 05:05 Large Platelets Not Reportable 12/05/21 05:05 Giant Platelets Not Reportable 12/05/21 05:05 Platelet Satelliting Not Reportable 12/05/21 05:05 Plt Morphology Comment Not Reportable 12/05/21 05:05 RBC Morphology Not Reportable 12/05/21 05:05 Dimorphic RBCs Not Reportable 12/05/21 05:05 Polychromasia Not Reportable 12/05/21 05:05 Hypochromasia 1+ 12/05/21 05:05 Poikilocytosis Not Reportable 12/05/21 05:05 Anisocytosis 1+ 12/05/21 05:05 Microcytosis Not Reportable 12/05/21 05:05 Macrocytosis Not Reportable 12/05/21 05:05 Spherocytes Not Reportable 12/05/21 05:05 Pappenheimer Bodies Not Reportable 12/05/21 05:05 Sickle Cells Not Reportable 12/05/21 05:05 Target Cells Not Reportable 12/05/21 05:05 Tear Drop Cells Not Reportable 12/05/21 05:05 Ovalocytes Not Reportable 12/05/21 05:05 Helmet Cells Not Reportable 12/05/21 05:05 [place] Bodies Not Reportable 12/05/21 05:05 [place] Rings Not Reportable 12/05/21 05:05 [place] Cells Not Reportable 12/05/21 05:05 Bite Cells Not Reportable 12/05/21 05:05 Crenated Cell Not Reportable 12/05/21 05:05 Elliptocytes Not Reportable 12/05/21 05:05 Acanthocytes (Spur) Not Reportable 12/05/21 05:05 Rouleaux Not Reportable 12/05/21 05:05 Hemoglobin C Crystals Not Reportable 12/05/21 05:05 Schistocytes Not Reportable 12/05/21 05:05 Malaria parasites Not Reportable 12/05/21 05:05 Magdy Bodies Not Reportable 12/05/21 05:05 Hem Pathologist Commnt No 12/05/21 05:05 PT 17.2 Sec. (12.2-14.9) H 10/30/21 16:30 INR 1.27 (0.87-1.13) H 10/30/21 16:30 APTT 44.4 Sec. (24.2-36.6) H 10/30/21 16:30 D-Dimer > 45877 ng/mlDDU (0-234) H 10/30/21 Unknown Heparin Anti-Xa Level 0.67 U.I./ml (0.3-0.7) 12/06/21 06:57 ABG pH 7.450 pH Units (7.350-7.450) 12/01/21 Unknown ABG pCO2 38.0 mm Hg 12/01/21 Unknown ABG pO2 88.9 mm Hg (80.0-90.0) 12/01/21 Unknown ABG HCO3 25.8 mmol/L (20.0-26.0) 12/01/21 Unknown ABG O2 Saturation 97.2 % (95.0-99.0) 12/01/21 Unknown ABG O2 Content 19.4 (0.0-44) 12/01/21 Unknown ABG Base Excess 1.9 mmol/L (-2.0-3.0) 12/01/21 Unknown ABG Hemoglobin 14.3 gm/dl (12.0-16.0) 12/01/21 Unknown ABG Carboxyhemoglobin 1.0 % (0.0-5.0) 12/01/21 Unknown ABG Methemoglobin 0.5 % (0.0-1.5) 12/01/21 Unknown Oxyhemoglobin 95.8 % (95.0-99.0) 12/01/21 Unknown FiO2 21 % 12/01/21 Unknown Sodium 132 mmol/L (137-145) L 12/06/21 04:36 Potassium 4.9 mmol/L (3.6-5.0) 12/06/21 04:36 Chloride 92.5 mmol/L (98-107) L 12/06/21 04:36 Carbon Dioxide 24 mmol/L (22-30) 12/06/21 04:36 Anion Gap 20 mmol/L 12/06/21 04:36 BUN 35 mg/dL (7-17) H 12/06/21 04:36 Creatinine 4.0 mg/dL (0.6-1.2) H 12/06/21 04:36 Estimated GFR 14 ml/min 12/06/21 04:36 BUN/Creatinine Ratio 9 % 12/06/21 04:36 Glucose 78 mg/dL (65-100) 12/06/21 04:36 POC Glucose 106 mg/dL (70-105) H 12/06/21 07:32 Hemoglobin A1c 6.7 % (4-6) H 10/31/21 04:30 Lactic Acid 0.70 mmol/L (0.7-2.0) 10/31/21 15:45 Calcium 8.6 mg/dL (8.4-10.2) 12/06/21 04:36 Phosphorus 5.20 mg/dL (2.5-4.5) H 12/02/21 03:22 Magnesium 1.60 mg/dL (1.7-2.3) L 11/19/21 14:38 Ferritin 208.4 ng/mL (10.0-200.0) H 10/30/21 Unknown Total Bilirubin < 0.20 mg/dL (0.1-1.2) 11/06/21 02:35 AST 21 units/L (5-40) 11/06/21 02:35 ALT 77 units/L (7-56) H 11/06/21 02:35 Alkaline Phosphatase 84 units/L (35-129) 11/06/21 02:35 Ammonia 31.0 umol/L (25-60) 10/29/21 15:10 Lactate Dehydrogenase 469 units/L (91-180) H 10/30/21 Unknown Troponin T 1.150 ng/mL (0.00-0.029) H* D 10/29/21 22:34 C-Reactive Protein 13.40 mg/dL (0.00-1.30) H 10/30/21 Unknown Total Protein 6.3 g/dL (6.3-8.2) 11/06/21 02:35 Albumin 3.0 g/dL (3.9-5) L 11/06/21 02:35 Albumin/Globulin Ratio 0.9 % 11/06/21 02:35 Triglycerides 68 mg/dL (2-149) 10/29/21 19:40 Cholesterol 98 mg/dL (50-199) 10/29/21 19:40 LDL Cholesterol Direct 43 mg/dL (50-130) L 10/29/21 19:40 HDL Cholesterol 50 mg/dL (40-59) 10/29/21 19:40 Cholesterol/HDL Ratio 1.96 % 10/29/21 19:40 Procalcitonin 61.95 ng/mL (<0.15) 10/30/21 Unknown TSH 3.080 mlU/mL (0.270-4.200) 10/29/21 15:10 Urine Color Yellow (Yellow) 11/13/21 08:30 Urine Turbidity Slightly-cloudy (Clear) 11/13/21 08:30 Urine pH 6.0 (5.0-7.0) 11/13/21 08:30 Ur Specific [place] 1.010 (1.003-1.030) 11/13/21 08:30 Urine Protein <15 mg/dl mg/dL (Negative) 11/13/21 08:30 Urine Glucose (UA) Neg mg/dL (Negative) 11/13/21 08:30 Urine Ketones Tr mg/dL (Negative) 11/13/21 08:30 Urine Blood Sm (Negative) 11/13/21 08:30 Urine Nitrite Neg (Negative) 11/13/21 08:30 Urine Bilirubin Neg (Negative) 11/13/21 08:30 Urine Urobilinogen < 2.0 mg/dL (<2.0) 11/13/21 08:30 Ur Leukocyte Esterase Neg (Negative) 11/13/21 08:30 Urine WBC (Auto) < 1.0 /HPF (0.0-6.0) 11/13/21 08:30 Urine RBC (Auto) < 1.0 /HPF (0.0-6.0) 11/13/21 08:30 U Epithel Cells (Auto) < 1.0 /HPF (0-13.0) 11/13/21 08:30 Urine Mucus Few /HPF 10/29/21 18:15 Urine Eosinophils None seen (None Seen) 11/04/21 Unknown Urine Creatinine 190.9 mg/dL (0.1-20.0) H 11/04/21 Unknown Protein/Creatinin Ratio 0.90 11/04/21 Unknown Urine Sodium 10 mmol/L 11/04/21 Unknown Urine Total Protein 172 mg/dL (5-11.8) H 11/04/21 Unknown Salicylates < 0.3 mg/dL (2.8-20.0) L 10/29/21 15:10 Urine Opiates Screen Negative 10/29/21 18:15 Urine Methadone Screen Negative 10/29/21 18:15 Acetaminophen 5.0 ug/mL (10.0-30.0) L 10/29/21 15:10 Ur Barbiturates Screen Negative 10/29/21 18:15 Ur Phencyclidine Scrn Negative 10/29/21 18:15 Ur Amphetamines Screen Negative 10/29/21 18:15 U Benzodiazepines Scrn Negative 10/29/21 18:15 Urine Cocaine Screen Negative 10/29/21 18:15 U Marijuana (THC) Screen Negative 10/29/21 18:15 Drugs of Abuse Note Disclamer 10/29/21 18:15 Plasma/Serum Alcohol < 0.01 % (0-0.07) 10/29/21 15:10 Coronavirus (PCR) Negative (Negative) 10/30/21 Unknown Hepatitis A IgM Ab Non-reactive (NonReactive) 12/01/21 19:36 Hep Bs Antigen Non-reactive (Negative) 12/01/21 19:36 Hep B Core IgM Ab Non-reactive (NonReactive) 12/01/21 19:36 Hepatitis C Antibody Non-reactive (NonReactive) 12/01/21 19:36 Blood Type O POSITIVE 11/12/21 04:15 Antibody Screen Negative 11/12/21 04:15 Crossmatch See Detail 11/12/21 04:15 Krishna/IV: Voiding Method Diaper Active Medications - Current Medications Current Medications: Generic Name Dose Route Start Last Admin Trade Name Freq PRN Reason Stop Dose Admin Acetaminophen 650 mg 10/29/21 17:04 11/12/21 22:53 Acetaminophen 650 Mg Rect Supp [place] 650 mg Q6H PRN Administration Pain MILD(1-3)/Fever >100.5/NIEVES Acetaminophen 650 mg 11/19/21 16:35 12/02/21 18:20 Acetaminophen 325 Mg Tab PO 650 mg Q6HR PRN Administration PAIN Albumin Human 50 gm 12/02/21 11:00 12/02/21 11:55 Albumin Human 25% (25 Gm/100 Ml) Inj IV 50 gm ZACH PRN Administration Hypotension Alprazolam 0.25 mg 11/14/21 14:29 12/03/21 23:02 Alprazolam 0.25 Mg Tab PO 0.25 mg Q8H PRN Administration Anxiety Docusate Sodium 100 mg 11/18/21 15:00 12/06/21 09:05 Docusate Sodium 100 Mg Cap PO 100 mg BID RAMON Administration Epoetin [place]-epbx 10,000 unit 12/06/21 10:00 Epoetin [place]-Epbx 10,000 Unit/1 Ml Vial IV ZACH PRN hemodialysis Famotidine 10 mg 11/06/21 10:00 12/06/21 09:05 Famotidine 10 Mg Tab PO 10 mg BID RAMON Administration Furosemide 40 mg 12/06/21 10:00 12/06/21 10:14 Furosemide 40 Mg/4 Ml Inj IV 40 mg QDAY RAMON Administration Gabapentin 100 mg 11/28/21 14:00 12/06/21 06:28 Gabapentin 100 Mg Cap PO 100 mg Q8HR RAMON Administration Heparin Sodium (Porcine) 4,000 unit 12/01/21 07:50 12/02/21 17:22 Heparin 10,000 Units/10 Ml Vial 40 unit/kg (4300 unit) 4,000 unit IV Administration Q6H PRN Anti-Xa Assay < 0.1 units/ml Hydrophilic Ointment 1 applic 10/29/21 14:29 11/09/21 08:51 Lip Therapy Vaseline TP 1 applic Q2HR PRN Administration Dry Lips Heparin Sodium/Sodium Chloride 25,000 unit in 500 mls @ 30 mls/hr 11/28/21 17:00 12/06/21 01:42 Heparin/ 0.45% Nacl-25,000 Unit/500 Ml IV 1,950 units/hr TITR RAMON 39 mls/hr Administration Protocol 1,500 UNITS/HR Sodium Chloride 100 mls @ 999 mls/hr 12/01/21 14:44 Nacl 0.9% IV ZACH PRN Hypotension Amiodarone HCl 900 mg/ 500 mls @ 33.333 mls/hr 12/05/21 19:00 12/06/21 06:27 Dextrose IV 0.5 mg/min DIRECT RAMON 16.667 mls/hr Administration Protocol 1 MG/MIN Insulin Human Lispro 0 unit 11/25/21 22:00 12/06/21 08:57 Insulin Lispro 100 Unit/Ml SUB-Q Not Given ACHS [facility] Protocol Lactulose 20 gm 11/18/21 14:43 12/06/21 08:30 Lactulose 20 Gm/30 Ml Oral Liqd PO 20 gm Q6H PRN Administration Constipation Melatonin 10 mg 11/22/21 17:31 12/05/21 22:38 Melatonin 5 Mg Tab PO 10 mg QHS PRN Administration Sleep Metoprolol Tartrate 50 mg 12/05/21 12:00 12/06/21 09:04 Metoprolol Tartrate 50 Mg Tab PO 50 mg BID RAMON Administration Midodrine 10 mg 12/01/21 12:00 12/06/21 08:53 Midodrine 5 Mg Tab PO 10 mg TID@0800,1200,1600 RAMON Administration Morphine Sulfate 1 mg 11/28/21 15:00 12/03/21 21:43 Morphine 2 Mg/1 Ml Inj IV 1 mg Q4H PRN Administration Pain, Moderate (4-6) Multi-Ingred Cream/Lotion/Oil/Oint 1 applic 10/29/21 14:29 11/06/21 09:25 Mineral Oil/Petrolatum, White Ophth Oint 3.5 Gm OU 1 applic Q4HR PRN Administration Dry Eye(s) Oxycodone/Acetaminophen 1 tab 11/27/21 14:31 12/05/21 22:39 Oxycodone /Acetaminophen 5-325mg Tab PO 1 tab Q4H PRN Administration Pain, Moderate (4-6) Polyethylene Glycol 17 gm 11/20/21 12:47 11/25/21 08:30 Polyethylene Glycol 3350 17 Gm Powder PO 17 gm QDAY PRN Administration Constipation Senna/Docusate Sodium 1 tab 11/16/21 22:00 12/06/21 09:05 Sennosides/Docusate Sodium 8.6/50 Mg Tab PO 1 tab BID RAMON Administration Sodium Chloride 10 ml 10/29/21 22:00 12/06/21 09:06 Sodium Chloride 0.9% 10 Ml Flush Syringe IV 10 ml BID RAMON Administration Sodium Chloride 10 ml 10/29/21 17:04 Sodium Chloride 0.9% 10 Ml Flush Syringe IV PRN PRN LINE FLUSH Nutrition/Malnutrition Assess - Dietary Evaluation Nutrition/Malnutrition Findings: Nutrition Notes Start: 10/30/21 09:50 Freq: Status: Active Protocol: Document 12/05/21 17:37 MEENU (Rec: 12/05/21 17:55 MEENU [email or web address]) Nutrition Notes Initial or Follow up Brief Note Current Diagnosis Acute Kidney Injury,Sepsis, Hypertension Other Pertinent Diagnosis s/p cardiac arrest, anemia Current Diet Renal -mech Soft- Diet + D Supplement (since D 12/02). Height 5 ft 10 in Weight 114.8 kg [place] Body Weight (kg) 68.18 BMI 36.3 Weight change and time frame No body weight change reported in 3 days. Weight Status Obese Subjective/Other Information RD consult for routine F/U on Dietary tolerance. Pt's PO intake of meals has improved to 75% and well tolerated, according to ADL notes. Pt still receiving vasopressors. Percent of energy/protein needs met: Prescribed Renal Diet provides for energy/protein needs (2, 072 Kcal/77 g) during LOS; additionally, Dietary Supplements will compensate for possible poor or insufficient PO intake of meals with 425 Kcal and 19 g of protein. Current % PO Good (75-100%) #1 Nutrition Diagnosis Inadequate oral intake Comments: Pt's PO intake of meals has been at 75%, and well tolerated, according to ADL notes. Diet advanced to Renal - mechanical soft-. Diagnosis Progress(for reassessment Improved documentation) Is patient on ventilator? No Is Patient Ambulatory and/or Out of Bed No REE-([facility]-confined to bed) 2120.952 Kcal/Kg value to use for calculation 14 Approximate Energy Requirements Using 1607 kcal/Kg Calculation Used for Recommendations Kcal/kg Additional Notes Protein: >1.2 g/Kg AdjBW; >110 g/day. Fluids: 1-1.5 L/day, or as per MD. Nutrition Intervention Change Diet Order: Continue Renal -mechanical soft- Diet. Add Supplement/Snack (indicate name/kcal Nepro once daily (vanilla) /protein ) Provides kCal: 425 Provides Protein (gm) 19 Goal #1 Compensate, through dietary supplementation, for possible poor or insufficient PO intake of meals during LOS. Goal #2 Facilitate PO intake of meals with mechanical modification during LOS. Goal #3 Maintain body weight within +/ -3% of admission body weight during LOS. Follow-Up By: 12/13/21 Additional Comments Continue monitoring food tolerance, %PO intake of meals , and BM.
--- NOTE | 2021-12-06 12:38 | Progress Note ---
Assessment and Plan Patient is a 66-year-old female with unknown past medical history brought into the ED following outside of hospital cardiac arrest thought to be PEA with thought to have downtime of 7 to 9 minutes however details are unclear S/P PEA cardiopulmonary arrest- Acute hypoxic respiratory failure-pulm following Septic shock Bacteremia Pneumonia Acute renal failure on HD-nephrology following Atrial flutter w/ RVR Pneumothorax- s/p CT Acute bilateral DVT-on Heparin gtt Hypokalemia Transaminitis Retroperitoneal Hematoma s/p IVC Echo 10/30/2021-technically difficult study due to body habitus. EF 25 to 30%. Right ventricular systolic function is normal. No pericardial effusion Plan: Previously on metoprolol 100 mg p.o. twice daily, aldactone 25mg PO QD, and losartan 25 mg p.o. daily Patient rate significantly improved. Rate trending 80s. Will stop amiodarone drip and convert to amiodarone 200 mg p.o. twice daily Continue metoprolol 50 mg p.o. twice daily Due to soft BP will hold previous antihypertensive medication. Will plan to initiate once patient is hemodynamically stable Will hold LAYO and ARB due to renal function Patient currently anticoagulated on heparin drip Patient requires ischemic eval however due to patient's multiple other comorbidities and instability at this time unable to do as an inpatient. Will plan for outpatient ischemic eval Patient seen in conjunction with Dr. Johnson who agrees with this plan of care - Patient Problems (1) Cardiopulmonary arrest Current Visit: Yes Status: Acute (2) Hypokalemia Current Visit: Yes Status: Acute (3) Transaminitis Current Visit: Yes Status: Acute (4) Aspiration pneumonia Current Visit: Yes Status: Acute (5) Acute hypoxemic respiratory failure Current Visit: Yes Status: Acute (6) Septic shock Current Visit: Yes Status: Acute (7) Toxic metabolic encephalopathy Current Visit: Yes Status: Acute (8) Shock liver Current Visit: Yes Status: Acute Subjective Date of service: 12/06/21 Principal diagnosis: AHRF; Cardiac arrest; R. pneumothorax; pneumonia; AMS; DVT's; SIERRA; Obesity Interval history: Patient resting in bed in no acute distress. Patient A. fib rate controlled. Rate trending 80s. No events on monitor Objective Vital Signs Temp Pulse Pulse Resp BP Pulse Ox Pulse Ox 12/06/21 09:38 97 12/06/21 08:00 97.8 F 63 63 18 142/84 99 12/06/21 04:24 98.1 F 111 H 19 123/86 97 12/06/21 04:00 95 H 12/06/21 00:17 98.4 F 95 H 18 108/63 92 12/05/21 22:39 124 H 134/90 12/05/21 20:00 95 H 18 97 12/05/21 19:49 98.4 F 124 H 21 134/90 97 12/05/21 19:44 98 12/05/21 18:43 135/77 12/05/21 16:05 99.4 F 12/05/21 16:03 127/82 12/05/21 16:00 135 H 12/05/21 15:57 135 H 127/82 12/05/21 15:22 97.2 F L 133 H 16 103/46 97 12/05/21 15:00 140 H 70/31 12/05/21 14:45 138 H 108/60 12/05/21 14:30 137 H 109/66 12/05/21 14:15 136 H 105/64 12/05/21 14:00 137 H 108/62 12/05/21 13:45 136 H 99/56 12/05/21 13:30 137 H 94/47 12/05/21 13:15 98.3 F 136 H 22 143/79 97 - Physical Examination General: No Apparent Distress HEENT: Positive: EOMI, Normocephaly Neck: Positive: trachea midline. Negative: JVD/HJR Cardiac: Positive: irregularly irregular Lungs: Positive: Decreased Breath Sounds Neuro: Positive: Grossly Intact Abdomen: Positive: Soft Skin: Negative: Rash Musculoskeletal: No Pain Extremities: Present: upper extr. pulses, edema, warm - Labs and Meds CBC 12/06/21 Range/Units 04:36 Hgb 8.0 L (10.1-14.3) gm/dl Hct 25.7 L (30.3-42.9) % Comprehensive Metabolic Panel 12/06/21 Range/Units 04:36 Sodium 132 L (137-145) mmol/L Potassium 4.9 (3.6-5.0) mmol/L Chloride 92.5 L (98-107) mmol/L Carbon Dioxide 24 (22-30) mmol/L BUN 35 H (7-17) mg/dL Creatinine 4.0 H (0.6-1.2) mg/dL Glucose 78 (65-100) mg/dL Calcium 8.6 (8.4-10.2) mg/dL - Imaging and Cardiology EKG: report reviewed, image reviewed Echo: report reviewed - Telemetry EKG Rhythm: Atrial Fibrillation - EKG Supraventricular dysrhythmia: atrial fibrillation Ventricular dysrhythmias: ventricular premature com Repolarization changes or abnormalities: nonspecific abnormality, ST segment, and/or T wave Myocardial infarction: septal DC (old age or ind - Allied health notes Allied health notes reviewed: nursing
--- NOTE | 2021-12-06 13:23 | Progress Note ---
Assessment and Plan Cultures: 10/29/2021 sputum culture: Usual respiratory giorgio 10/29/2021 urine culture: No growth 10/29/2021 blood culture: No growth 11/01/2021 tracheal aspirate culture: No growth 11/10/2021 tracheal aspirate culture: Usual respiratory giorgio 11/13/2021 blood culture: No growth 11/29/2021 urine culture: Mixed giorgio 11/29/2021 blood culture: 1 out of 4 bottles positive for coag negative staph A/P: 66-year-old female past medical history obesity presented to the hospital after cardiac arrest: #Coagulase negative staph bacteremia: Likely contaminant, 1 of 4 bottles. #Acute leukocytosis: Possibly related to large subacute left-sided retroperitoneal hematoma. CT chest, abdomen and pelvis on 12/01/2021 did not reveal any other infectious etiology. #Retroperitoneal bleed #Cardiac arrest #SIERRA on HD: Renally dose medications. Recs: --monitor off abx. Follow WBC trend and watch for any fevers Simran Marcelino MD, FACP, [facility] O: [phone] F: [phone] C: [phone] Subjective Date of service: 12/06/21 Principal diagnosis: AHRF; Cardiac arrest; R. pneumothorax; pneumonia; AMS; DVT's; SIERRA; Obesity Interval history: No fever. Denies any complaints. Objective - Exam Narrative Exam: Physical Exam: Constitutional: Alert, cooperative. No acute distress. Morbid obesity Head, Ears, Nose: Normocephalic, atraumatic. External ears, nose normal Eyes: Conjunctivae/corneas clear. No icterus. No ptosis. Neck: Supple, no meningeal signs Cardiovascular: S1, S2 + Respiratory: AE fair bilaterally GI: Soft, non-tender; bowel sounds normal. No peritoneal signs Musculoskeletal: trace edema. Skin: No rash or abscess Hem/Lymphatic: No palpable cervical or supraclavicular nodes. No lymphangitis Psych: Mood ok. Affect normal Neurological: Awake, alert, oriented. No gross abnormality - Constitutional Vitals: Vital Signs Temp Pulse Resp BP Pulse Ox 97.8 F 63 18 142/84 97 12/06/21 08:00 12/06/21 08:00 12/06/21 08:00 12/06/21 08:00 12/06/21 09:38 Temperature -Last 24 Hours Temperature 97.8 F Temperature 98.1 F Temperature 98.4 F Temperature 98.4 F Temperature 99.4 F Temperature 97.2 F - Labs CBC & Chem 7: 12/06/21 04:36 12/06/21 04:36 Labs: Abnormal lab results 12/05/21 12/05/21 12/05/21 Range/Units 16:42 21:14 23:51 Hgb (10.1-14.3) gm/dl Hct (30.3-42.9) % Heparin Anti-Xa Level 0.71 H (0.3-0.7) U.I./ml Sodium (137-145) mmol/L Chloride (98-107) mmol/L BUN (7-17) mg/dL Creatinine (0.6-1.2) mg/dL POC Glucose 122 H 119 H (70-105) mg/dL 12/06/21 12/06/21 12/06/21 Range/Units 04:36 04:36 07:32 Hgb 8.0 L (10.1-14.3) gm/dl Hct 25.7 L (30.3-42.9) % Heparin Anti-Xa Level (0.3-0.7) U.I./ml Sodium 132 L (137-145) mmol/L Chloride 92.5 L (98-107) mmol/L BUN 35 H (7-17) mg/dL Creatinine 4.0 H (0.6-1.2) mg/dL POC Glucose 106 H (70-105) mg/dL 12/06/21 Range/Units 11:12 Hgb (10.1-14.3) gm/dl Hct (30.3-42.9) % Heparin Anti-Xa Level (0.3-0.7) U.I./ml Sodium (137-145) mmol/L Chloride (98-107) mmol/L BUN (7-17) mg/dL Creatinine (0.6-1.2) mg/dL POC Glucose 112 H (70-105) mg/dL
--- NOTE | 2021-12-06 14:53 | Progress Note ---
Assessment and Plan Acute hypoxemic respiratory failure s/p MVS Cardiac arrest with ROSC - 10/30 Echocardiogram shows left ventricular systolic function severely decreased, LVEF 25 to 30%, no pericardial effusion Acute DVT in the left posterior tibial vein and bilateral peroneal veins -CTA chest on admission with no evidence of PE Anemia- possible acute blood loss Right pneumothorax s/p pleural drain placement SIERRA Hypernatremia Altered mental status/acute encephalopathy Obesity Supportive transfusions, keep HgB>7g/dL Continue to titrate supplemental oxygen to keep SpO2 88-90% Continue accuchecks with glycemic control per SSI (While critically ill target blood glucose of 140-180 mg/dL; avoid hypoglycemia) Continue to avoid nephrotoxins, renally dose all medications Continue to avoid benzodiazepines , reduce the possibility of delirium Continue with heart failure measures Maintenance of sleep-wake cycle, avoid delirium Continue mobility, frequent turning and off loading for pressure ulcer prevention Monitor hemodynamics closely Awaiting life vest, perm cath placement and outpatient HD Home oxygen and PAP Discharge planning per primary service continue other care per attending / other consultants COVID SPECIFIC INTERVENTIONS - COVID-19 PCR negative CONDITION: FAIR PROGNOSIS: FAIR CODE STATUS: FULL CODE Subjective Date of service: 12/06/21 Principal diagnosis: AHRF; Cardiac arrest; R. pneumothorax; pneumonia; AMS; DVT's; SIERRA; Obesity Interval history: Patient is seen today for: Acute hypoxemic respiratory failure; Cardiac arrest with ROSC; Right pneumothorax; pneumonia; AMS; bilateral DVT's; SIERRA; Obesity Seen and examined at bedside; 24hour events reviewed; nursing and respiratory care staff consulted; no adverse overnight events reported to me; resting in bed; remains on supplemental oxygen, tolerating HD; denies N/V/F/C. Denies any chest pain, no shortness of breath Objective Vital Signs - 12hr 12/06/21 12/06/21 12/06/21 04:00 04:24 08:00 Temperature 98.1 F 97.8 F Pulse Rate 95 H 111 H 63 Pulse Rate [ 63 Right Dorsalis Pedis] Respiratory 19 18 Rate Blood Pressure 123/86 142/84 O2 Sat by Pulse 97 99 Oximetry 12/06/21 12/06/21 09:38 11:17 Temperature 98.1 F Pulse Rate 58 L Pulse Rate [ Right Dorsalis Pedis] Respiratory 24 Rate Blood Pressure 121/77 O2 Sat by Pulse 97 99 Oximetry Constitutional: no acute distress, alert, other (elderly obese female with mildly increased respiratory effort at rest ) Eyes: non-icteric ENT: oropharynx moist Neck: supple, no lymphadenopathy, no JVD, other (large circumference) Effort: normal Ascultation: Bilateral: diminished breath sounds, rhonchi (bases) Percussion: Bilateral: not dull Cardiovascular: regular rate and rhythm, other (no R/M) Gastrointestinal: normoactive bowel sounds, soft, non-tender, other (obese) Integumentary: normal, other (Left flank ecchymosis with induration) Extremities: no cyanosis, pulses normal, no ischemia or petechiae, edema (2+) Neurologic: normal mental status, non-focal exam (grossly), pupils equal and round, motor strength normal and (weak) Psychiatric: mood appropriate, affect normal CBC and BMP: 12/06/21 04:36 12/07/21 06:11 ABG, PT/INR, D-dimer: ABG ABG pH 7.450 pH Units (7.350-7.450) 12/01/21 Unknown ABG pCO2 38.0 mm Hg 12/01/21 Unknown ABG pO2 88.9 mm Hg (80.0-90.0) 12/01/21 Unknown ABG O2 Saturation 97.2 % (95.0-99.0) 12/01/21 Unknown PT/INR, D-dimer PT 17.2 Sec. (12.2-14.9) H 10/30/21 16:30 INR 1.27 (0.87-1.13) H 10/30/21 16:30 D-Dimer > 19959 ng/mlDDU (0-234) H 10/30/21 Unknown Abnormal lab findings: Abnormal Labs 10/29/21 10/29/21 10/29/21 15:10 15:10 15:10 WBC 27.8 H RBC Hgb Hct MCH 27 L RDW Plt Count Lymph % (Auto) [place] % (Auto) Lymph # (Auto) [place] # (Auto) Seg Neutrophils % Seg Neuts % (Manual) 78.0 H Lymphocytes % (Manual) 10.0 L Monocytes % (Manual) Nucleated RBC % Seg Neutrophils # Seg Neutrophils # Man 21.7 H Monocytes # (Manual) 1.4 H Eosinophils # (Manual) Basophils # (Manual) PT INR APTT D-Dimer Heparin Anti-Xa Level ABG pH ABG pO2 ABG HCO3 ABG O2 Saturation ABG Base Excess ABG Hemoglobin Oxyhemoglobin Sodium Potassium Chloride Carbon Dioxide BUN Creatinine Glucose POC Glucose Hemoglobin A1c Lactic Acid 6.80 H* Calcium Phosphorus Magnesium Ferritin AST ALT Alkaline Phosphatase Lactate Dehydrogenase Troponin T 0.089 H C-Reactive Protein Total Protein Albumin LDL Cholesterol Direct Urine Creatinine Urine Total Protein Salicylates Acetaminophen Crossmatch 10/29/21 10/29/21 10/29/21 15:10 15:10 15:10 WBC RBC Hgb Hct MCH RDW Plt Count Lymph % (Auto) [place] % (Auto) Lymph # (Auto) [place] # (Auto) Seg Neutrophils % Seg Neuts % (Manual) Lymphocytes % (Manual) Monocytes % (Manual) Nucleated RBC % Seg Neutrophils # Seg Neutrophils # Man Monocytes # (Manual) Eosinophils # (Manual) Basophils # (Manual) PT INR APTT D-Dimer Heparin Anti-Xa Level ABG pH ABG pO2 ABG HCO3 ABG O2 Saturation ABG Base Excess ABG Hemoglobin Oxyhemoglobin Sodium 136 L Potassium 2.8 L* Chloride 93.4 L Carbon Dioxide 20 L BUN Creatinine Glucose 330 H POC Glucose Hemoglobin A1c Lactic Acid Calcium Phosphorus Magnesium Ferritin AST 1013 H ALT 1289 H Alkaline Phosphatase 246 H Lactate Dehydrogenase Troponin T C-Reactive Protein Total Protein Albumin LDL Cholesterol Direct Urine Creatinine Urine Total Protein Salicylates < 0.3 L Acetaminophen 5.0 L Crossmatch 10/29/21 10/29/21 10/29/21 15:11 16:01 19:29 WBC RBC Hgb Hct MCH RDW Plt Count Lymph % (Auto) [place] % (Auto) Lymph # (Auto) [place] # (Auto) Seg Neutrophils % Seg Neuts % (Manual) Lymphocytes % (Manual) Monocytes % (Manual) Nucleated RBC % Seg Neutrophils # Seg Neutrophils # Man Monocytes # (Manual) Eosinophils # (Manual) Basophils # (Manual) PT INR APTT D-Dimer Heparin Anti-Xa Level ABG pH 7.307 L ABG pO2 64.1 L ABG HCO3 ABG O2 Saturation 90.8 L ABG Base Excess -2.9 L ABG Hemoglobin Oxyhemoglobin 89.3 L Sodium Potassium Chloride Carbon Dioxide BUN Creatinine Glucose POC Glucose Hemoglobin A1c Lactic Acid 2.60 H* Calcium Phosphorus Magnesium 2.90 H Ferritin AST ALT Alkaline Phosphatase Lactate Dehydrogenase Troponin T C-Reactive Protein Total Protein Albumin LDL Cholesterol Direct Urine Creatinine Urine Total Protein Salicylates Acetaminophen Crossmatch 10/29/21 10/29/21 10/30/21 19:40 22:34 04:30 WBC 16.2 H RBC Hgb Hct MCH 26 L RDW 15.5 H Plt Count Lymph % (Auto) 6.2 L [place] % (Auto) Lymph # (Auto) 1.0 L [place] # (Auto) 0.9 H Seg Neutrophils % 88.1 H Seg Neuts % (Manual) Lymphocytes % (Manual) Monocytes % (Manual) Nucleated RBC % Seg Neutrophils # 14.2 H Seg Neutrophils # Man Monocytes # (Manual) Eosinophils # (Manual) Basophils # (Manual) PT INR APTT D-Dimer Heparin Anti-Xa Level ABG pH ABG pO2 ABG HCO3 ABG O2 Saturation ABG Base Excess ABG Hemoglobin Oxyhemoglobin Sodium Potassium Chloride Carbon Dioxide BUN Creatinine Glucose POC Glucose Hemoglobin A1c Lactic Acid Calcium Phosphorus Magnesium Ferritin AST ALT Alkaline Phosphatase Lactate Dehydrogenase Troponin T 1.950 H* D 1.150 H* D C-Reactive Protein Total Protein Albumin LDL Cholesterol Direct 43 L Urine Creatinine Urine Total Protein Salicylates Acetaminophen Crossmatch 10/30/21 10/30/21 10/30/21 04:30 04:35 05:45 WBC RBC Hgb Hct MCH RDW Plt Count Lymph % (Auto) [place] % (Auto) Lymph # (Auto) [place] # (Auto) Seg Neutrophils % Seg Neuts % (Manual) Lymphocytes % (Manual) Monocytes % (Manual) Nucleated RBC % Seg Neutrophils # Seg Neutrophils # Man Monocytes # (Manual) Eosinophils # (Manual) Basophils # (Manual) PT INR APTT D-Dimer Heparin Anti-Xa Level ABG pH ABG pO2 69.5 L ABG HCO3 ABG O2 Saturation ABG Base Excess -2.7 L ABG Hemoglobin Oxyhemoglobin 94.7 L Sodium Potassium Chloride Carbon Dioxide 21 L BUN Creatinine Glucose 159 H POC Glucose 151 H Hemoglobin A1c Lactic Acid Calcium 7.9 L D Phosphorus Magnesium Ferritin AST 461 H ALT 686 H Alkaline Phosphatase 130 H Lactate Dehydrogenase Troponin T C-Reactive Protein Total Protein 5.6 L D Albumin 3.2 L LDL Cholesterol Direct Urine Creatinine Urine Total Protein Salicylates Acetaminophen Crossmatch 10/30/21 10/30/21 10/30/21 11:24 15:59 16:30 WBC RBC Hgb Hct MCH RDW Plt Count Lymph % (Auto) [place] % (Auto) Lymph # (Auto) [place] # (Auto) Seg Neutrophils % Seg Neuts % (Manual) Lymphocytes % (Manual) Monocytes % (Manual) Nucleated RBC % Seg Neutrophils # Seg Neutrophils # Man Monocytes # (Manual) Eosinophils # (Manual) Basophils # (Manual) PT 17.2 H INR 1.27 H APTT 44.4 H D-Dimer Heparin Anti-Xa Level ABG pH ABG pO2 ABG HCO3 ABG O2 Saturation ABG Base Excess ABG Hemoglobin Oxyhemoglobin Sodium Potassium Chloride Carbon Dioxide BUN Creatinine Glucose POC Glucose 153 H 109 H Hemoglobin A1c Lactic Acid Calcium Phosphorus Magnesium Ferritin AST ALT Alkaline Phosphatase Lactate Dehydrogenase Troponin T C-Reactive Protein Total Protein Albumin LDL Cholesterol Direct Urine Creatinine Urine Total Protein Salicylates Acetaminophen Crossmatch 10/30/21 10/30/21 10/30/21 23:00 Unknown Unknown WBC RBC Hgb Hct MCH RDW Plt Count Lymph % (Auto) [place] % (Auto) Lymph # (Auto) [place] # (Auto) Seg Neutrophils % Seg Neuts % (Manual) Lymphocytes % (Manual) Monocytes % (Manual) Nucleated RBC % Seg Neutrophils # Seg Neutrophils # Man Monocytes # (Manual) Eosinophils # (Manual) Basophils # (Manual) PT INR APTT D-Dimer > 23463 H Heparin Anti-Xa Level 0.82 H ABG pH ABG pO2 ABG HCO3 ABG O2 Saturation ABG Base Excess ABG Hemoglobin Oxyhemoglobin Sodium Potassium Chloride Carbon Dioxide BUN Creatinine Glucose POC Glucose Hemoglobin A1c Lactic Acid Calcium Phosphorus Magnesium Ferritin 208.4 H AST ALT Alkaline Phosphatase Lactate Dehydrogenase Troponin T C-Reactive Protein Total Protein Albumin LDL Cholesterol Direct Urine Creatinine Urine Total Protein Salicylates Acetaminophen Crossmatch 10/30/21 10/31/21 10/31/21 Unknown 04:30 04:30 WBC 14.4 H RBC Hgb Hct MCH 26 L RDW Plt Count Lymph % (Auto) [place] % (Auto) Lymph # (Auto) [place] # (Auto) Seg Neutrophils % Seg Neuts % (Manual) Lymphocytes % (Manual) Monocytes % (Manual) Nucleated RBC % Seg Neutrophils # Seg Neutrophils # Man Monocytes # (Manual) Eosinophils # (Manual) Basophils # (Manual) PT INR APTT D-Dimer Heparin Anti-Xa Level ABG pH ABG pO2 ABG HCO3 ABG O2 Saturation ABG Base Excess ABG Hemoglobin Oxyhemoglobin Sodium Potassium 3.5 L Chloride 107.5 H Carbon Dioxide 20 L BUN 28 H Creatinine 1.7 H Glucose 113 H POC Glucose Hemoglobin A1c Lactic Acid Calcium 7.9 L Phosphorus Magnesium Ferritin AST ALT Alkaline Phosphatase Lactate Dehydrogenase 469 H Troponin T C-Reactive Protein 13.40 H Total Protein Albumin LDL Cholesterol Direct Urine Creatinine Urine Total Protein Salicylates Acetaminophen Crossmatch 10/31/21 10/31/21 10/31/21 04:30 05:11 15:30 WBC RBC Hgb Hct MCH RDW Plt Count Lymph % (Auto) [place] % (Auto) Lymph # (Auto) [place] # (Auto) Seg Neutrophils % Seg Neuts % (Manual) Lymphocytes % (Manual) Monocytes % (Manual) Nucleated RBC % Seg Neutrophils # Seg Neutrophils # Man Monocytes # (Manual) Eosinophils # (Manual) Basophils # (Manual) PT INR APTT D-Dimer Heparin Anti-Xa Level ABG pH 7.222 L ABG pO2 61.5 L ABG HCO3 ABG O2 Saturation 86.2 L ABG Base Excess -6.3 L ABG Hemoglobin 11.2 L Oxyhemoglobin 84.5 L Sodium Potassium Chloride Carbon Dioxide BUN Creatinine Glucose POC Glucose 106 H Hemoglobin A1c 6.7 H Lactic Acid Calcium Phosphorus Magnesium Ferritin AST ALT Alkaline Phosphatase Lactate Dehydrogenase Troponin T C-Reactive Protein Total Protein Albumin LDL Cholesterol Direct Urine Creatinine Urine Total Protein Salicylates Acetaminophen Crossmatch 10/31/21 10/31/21 10/31/21 16:07 16:35 17:45 WBC RBC Hgb Hct MCH RDW Plt Count Lymph % (Auto) [place] % (Auto) Lymph # (Auto) [place] # (Auto) Seg Neutrophils % Seg Neuts % (Manual) Lymphocytes % (Manual) Monocytes % (Manual) Nucleated RBC % Seg Neutrophils # Seg Neutrophils # Man Monocytes # (Manual) Eosinophils # (Manual) Basophils # (Manual) PT INR APTT D-Dimer Heparin Anti-Xa Level ABG pH 7.267 L ABG pO2 58.3 L ABG HCO3 ABG O2 Saturation 88.3 L ABG Base Excess -5.9 L ABG Hemoglobin 10.1 L Oxyhemoglobin 86.5 L Sodium Potassium Chloride Carbon Dioxide BUN Creatinine Glucose POC Glucose 115 H Hemoglobin A1c Lactic Acid Calcium Phosphorus Magnesium Ferritin AST ALT Alkaline Phosphatase Lactate Dehydrogenase Troponin T C-Reactive Protein Total Protein Albumin LDL Cholesterol Direct Urine Creatinine 383.6 H Urine Total Protein Salicylates Acetaminophen Crossmatch 11/01/21 11/01/21 11/01/21 00:06 05:08 06:00 WBC 12.6 H RBC 3.43 L Hgb 8.9 L Hct 28.7 L MCH 26 L RDW 15.7 H Plt Count 130 L Lymph % (Auto) [place] % (Auto) Lymph # (Auto) [place] # (Auto) Seg Neutrophils % Seg Neuts % (Manual) Lymphocytes % (Manual) Monocytes % (Manual) Nucleated RBC % Seg Neutrophils # Seg Neutrophils # Man Monocytes # (Manual) Eosinophils # (Manual) Basophils # (Manual) PT INR APTT D-Dimer Heparin Anti-Xa Level ABG pH ABG pO2 ABG HCO3 ABG O2 Saturation ABG Base Excess ABG Hemoglobin Oxyhemoglobin Sodium Potassium Chloride Carbon Dioxide BUN Creatinine Glucose POC Glucose 114 H 120 H Hemoglobin A1c Lactic Acid Calcium Phosphorus Magnesium Ferritin AST ALT Alkaline Phosphatase Lactate Dehydrogenase Troponin T C-Reactive Protein Total Protein Albumin LDL Cholesterol Direct Urine Creatinine Urine Total Protein Salicylates Acetaminophen Crossmatch 11/01/21 11/01/21 11/01/21 06:00 11:43 14:00 WBC RBC Hgb Hct MCH RDW Plt Count Lymph % (Auto) [place] % (Auto) Lymph # (Auto) [place] # (Auto) Seg Neutrophils % Seg Neuts % (Manual) Lymphocytes % (Manual) Monocytes % (Manual) Nucleated RBC % Seg Neutrophils # Seg Neutrophils # Man Monocytes # (Manual) Eosinophils # (Manual) Basophils # (Manual) PT INR APTT D-Dimer Heparin Anti-Xa Level ABG pH 7.349 L ABG pO2 75.6 L ABG HCO3 ABG O2 Saturation ABG Base Excess -3.9 L ABG Hemoglobin 9.8 L Oxyhemoglobin 93.5 L Sodium Potassium Chloride 114.1 H Carbon Dioxide 20 L BUN 33 H Creatinine Glucose 131 H POC Glucose 151 H Hemoglobin A1c Lactic Acid Calcium 7.7 L Phosphorus Magnesium Ferritin AST 79 H ALT 259 H Alkaline Phosphatase Lactate Dehydrogenase Troponin T C-Reactive Protein Total Protein 5.5 L Albumin 2.7 L LDL Cholesterol Direct Urine Creatinine Urine Total Protein Salicylates Acetaminophen Crossmatch 11/01/21 11/01/21 11/02/21 16:45 22:55 05:12 WBC RBC Hgb Hct MCH RDW Plt Count Lymph % (Auto) [place] % (Auto) Lymph # (Auto) [place] # (Auto) Seg Neutrophils % Seg Neuts % (Manual) Lymphocytes % (Manual) Monocytes % (Manual) Nucleated RBC % Seg Neutrophils # Seg Neutrophils # Man Monocytes # (Manual) Eosinophils # (Manual) Basophils # (Manual) PT INR APTT D-Dimer Heparin Anti-Xa Level ABG pH ABG pO2 ABG HCO3 ABG O2 Saturation ABG Base Excess ABG Hemoglobin Oxyhemoglobin Sodium Potassium Chloride Carbon Dioxide BUN Creatinine Glucose POC Glucose 119 H 129 H 140 H Hemoglobin A1c Lactic Acid Calcium Phosphorus Magnesium Ferritin AST ALT Alkaline Phosphatase Lactate Dehydrogenase Troponin T C-Reactive Protein Total Protein Albumin LDL Cholesterol Direct Urine Creatinine Urine Total Protein Salicylates Acetaminophen Crossmatch 11/02/21 11/02/21 11/02/21 05:35 05:35 09:35 WBC 13.5 H RBC 3.60 L Hgb 9.7 L Hct MCH 27 L RDW 15.7 H Plt Count Lymph % (Auto) [place] % (Auto) Lymph # (Auto) [place] # (Auto) Seg Neutrophils % Seg Neuts % (Manual) Lymphocytes % (Manual) Monocytes % (Manual) Nucleated RBC % Seg Neutrophils # Seg Neutrophils # Man Monocytes # (Manual) Eosinophils # (Manual) Basophils # (Manual) PT INR APTT D-Dimer Heparin Anti-Xa Level ABG pH 7.208 L ABG pO2 75.9 L ABG HCO3 ABG O2 Saturation 93.6 L ABG Base Excess -4.3 L ABG Hemoglobin 9.1 L Oxyhemoglobin 91.6 L Sodium Potassium 5.2 H D Chloride 112.6 H Carbon Dioxide BUN 32 H Creatinine Glucose 152 H POC Glucose Hemoglobin A1c Lactic Acid Calcium 8.2 L Phosphorus Magnesium 2.70 H Ferritin AST ALT Alkaline Phosphatase Lactate Dehydrogenase Troponin T C-Reactive Protein Total Protein Albumin LDL Cholesterol Direct Urine Creatinine Urine Total Protein Salicylates Acetaminophen Crossmatch 11/02/21 11/02/21 11/02/21 11:44 17:13 23:43 WBC RBC Hgb Hct MCH RDW Plt Count Lymph % (Auto) [place] % (Auto) Lymph # (Auto) [place] # (Auto) Seg Neutrophils % Seg Neuts % (Manual) Lymphocytes % (Manual) Monocytes % (Manual) Nucleated RBC % Seg Neutrophils # Seg Neutrophils # Man Monocytes # (Manual) Eosinophils # (Manual) Basophils # (Manual) PT INR APTT D-Dimer Heparin Anti-Xa Level ABG pH ABG pO2 ABG HCO3 ABG O2 Saturation ABG Base Excess ABG Hemoglobin Oxyhemoglobin Sodium Potassium Chloride Carbon Dioxide BUN Creatinine Glucose POC Glucose 173 H 148 H 137 H Hemoglobin A1c Lactic Acid Calcium Phosphorus Magnesium Ferritin AST ALT Alkaline Phosphatase Lactate Dehydrogenase Troponin T C-Reactive Protein Total Protein Albumin LDL Cholesterol Direct Urine Creatinine Urine Total Protein Salicylates Acetaminophen Crossmatch 11/03/21 11/03/21 11/03/21 04:59 06:00 06:00 WBC RBC 3.43 L Hgb 9.1 L Hct 29.0 L MCH 26 L RDW 16.4 H Plt Count Lymph % (Auto) [place] % (Auto) Lymph # (Auto) [place] # (Auto) Seg Neutrophils % Seg Neuts % (Manual) Lymphocytes % (Manual) Monocytes % (Manual) Nucleated RBC % Seg Neutrophils # Seg Neutrophils # Man Monocytes # (Manual) Eosinophils # (Manual) Basophils # (Manual) PT INR APTT D-Dimer Heparin Anti-Xa Level 0.17 L ABG pH ABG pO2 ABG HCO3 ABG O2 Saturation ABG Base Excess ABG Hemoglobin Oxyhemoglobin Sodium Potassium Chloride Carbon Dioxide BUN Creatinine Glucose POC Glucose 167 H Hemoglobin A1c Lactic Acid Calcium Phosphorus Magnesium Ferritin AST ALT Alkaline Phosphatase Lactate Dehydrogenase Troponin T C-Reactive Protein Total Protein Albumin LDL Cholesterol Direct Urine Creatinine Urine Total Protein Salicylates Acetaminophen Crossmatch 11/03/21 11/03/21 11/03/21 06:00 09:20 11:58 WBC RBC Hgb Hct MCH RDW Plt Count Lymph % (Auto) [place] % (Auto) Lymph # (Auto) [place] # (Auto) Seg Neutrophils % Seg Neuts % (Manual) Lymphocytes % (Manual) Monocytes % (Manual) Nucleated RBC % Seg Neutrophils # Seg Neutrophils # Man Monocytes # (Manual) Eosinophils # (Manual) Basophils # (Manual) PT INR APTT D-Dimer Heparin Anti-Xa Level ABG pH 7.274 L ABG pO2 75.6 L ABG HCO3 ABG O2 Saturation 94.9 L ABG Base Excess -2.5 L ABG Hemoglobin 9.3 L Oxyhemoglobin 92.9 L Sodium 149 H Potassium Chloride 117.5 H Carbon Dioxide BUN 32 H Creatinine Glucose 173 H POC Glucose 192 H Hemoglobin A1c Lactic Acid Calcium 8.1 L Phosphorus Magnesium Ferritin AST ALT Alkaline Phosphatase Lactate Dehydrogenase Troponin T C-Reactive Protein Total Protein Albumin LDL Cholesterol Direct Urine Creatinine Urine Total Protein Salicylates Acetaminophen Crossmatch 11/03/21 11/03/21 11/04/21 18:22 Unknown 00:09 WBC RBC Hgb Hct MCH RDW Plt Count Lymph % (Auto) [place] % (Auto) Lymph # (Auto) [place] # (Auto) Seg Neutrophils % Seg Neuts % (Manual) Lymphocytes % (Manual) Monocytes % (Manual) Nucleated RBC % Seg Neutrophils # Seg Neutrophils # Man Monocytes # (Manual) Eosinophils # (Manual) Basophils # (Manual) PT INR APTT D-Dimer Heparin Anti-Xa Level 0.29 L ABG pH ABG pO2 ABG HCO3 ABG O2 Saturation ABG Base Excess ABG Hemoglobin Oxyhemoglobin Sodium Potassium Chloride Carbon Dioxide BUN Creatinine Glucose POC Glucose 178 H 221 H Hemoglobin A1c Lactic Acid Calcium Phosphorus Magnesium Ferritin AST ALT Alkaline Phosphatase Lactate Dehydrogenase Troponin T C-Reactive Protein Total Protein Albumin LDL Cholesterol Direct Urine Creatinine Urine Total Protein Salicylates Acetaminophen Crossmatch 11/04/21 11/04/21 11/04/21 05:09 09:40 09:40 WBC 16.8 H RBC Hgb Hct MCH 27 L RDW 16.5 H Plt Count Lymph % (Auto) [place] % (Auto) Lymph # (Auto) [place] # (Auto) Seg Neutrophils % Seg Neuts % (Manual) Lymphocytes % (Manual) Monocytes % (Manual) Nucleated RBC % Seg Neutrophils # Seg Neutrophils # Man Monocytes # (Manual) Eosinophils # (Manual) Basophils # (Manual) PT INR APTT D-Dimer Heparin Anti-Xa Level ABG pH ABG pO2 ABG HCO3 ABG O2 Saturation ABG Base Excess ABG Hemoglobin Oxyhemoglobin Sodium Potassium 5.9 H Chloride 108.5 H Carbon Dioxide BUN 54 H Creatinine 1.8 H Glucose 198 H POC Glucose 182 H Hemoglobin A1c Lactic Acid Calcium Phosphorus Magnesium 3.00 H Ferritin AST ALT Alkaline Phosphatase Lactate Dehydrogenase Troponin T C-Reactive Protein Total Protein Albumin LDL Cholesterol Direct Urine Creatinine Urine Total Protein Salicylates Acetaminophen Crossmatch 11/04/21 11/04/21 11/04/21 12:13 13:34 14:05 WBC RBC Hgb Hct MCH RDW Plt Count Lymph % (Auto) [place] % (Auto) Lymph # (Auto) [place] # (Auto) Seg Neutrophils % Seg Neuts % (Manual) Lymphocytes % (Manual) Monocytes % (Manual) Nucleated RBC % Seg Neutrophils # Seg Neutrophils # Man Monocytes # (Manual) Eosinophils # (Manual) Basophils # (Manual) PT INR APTT D-Dimer Heparin Anti-Xa Level ABG pH 7.223 L ABG pO2 71.3 L ABG HCO3 ABG O2 Saturation 92.8 L ABG Base Excess ABG Hemoglobin 8.2 L Oxyhemoglobin 91.0 L Sodium Potassium Chloride Carbon Dioxide BUN Creatinine Glucose POC Glucose 184 H Hemoglobin A1c Lactic Acid Calcium Phosphorus Magnesium Ferritin AST ALT Alkaline Phosphatase Lactate Dehydrogenase Troponin T C-Reactive Protein Total Protein Albumin LDL Cholesterol Direct Urine Creatinine 184.6 H Urine Total Protein Salicylates Acetaminophen Crossmatch 11/04/21 11/04/21 11/05/21 18:02 Unknown 00:07 WBC RBC Hgb Hct MCH RDW Plt Count Lymph % (Auto) [place] % (Auto) Lymph # (Auto) [place] # (Auto) Seg Neutrophils % Seg Neuts % (Manual) Lymphocytes % (Manual) Monocytes % (Manual) Nucleated RBC % Seg Neutrophils # Seg Neutrophils # Man Monocytes # (Manual) Eosinophils # (Manual) Basophils # (Manual) PT INR APTT D-Dimer Heparin Anti-Xa Level ABG pH ABG pO2 ABG HCO3 ABG O2 Saturation ABG Base Excess ABG Hemoglobin Oxyhemoglobin Sodium Potassium Chloride Carbon Dioxide BUN Creatinine Glucose POC Glucose 262 H 259 H Hemoglobin A1c Lactic Acid Calcium Phosphorus Magnesium Ferritin AST ALT Alkaline Phosphatase Lactate Dehydrogenase Troponin T C-Reactive Protein Total Protein Albumin LDL Cholesterol Direct Urine Creatinine 190.9 H Urine Total Protein 172 H Salicylates Acetaminophen Crossmatch 11/05/21 11/05/21 11/05/21 04:20 04:20 05:30 WBC 17.9 H RBC 3.64 L Hgb 9.7 L Hct MCH 27 L RDW 16.4 H Plt Count Lymph % (Auto) [place] % (Auto) Lymph # (Auto) [place] # (Auto) Seg Neutrophils % Seg Neuts % (Manual) Lymphocytes % (Manual) Monocytes % (Manual) Nucleated RBC % Seg Neutrophils # Seg Neutrophils # Man Monocytes # (Manual) Eosinophils # (Manual) Basophils # (Manual) PT INR APTT D-Dimer Heparin Anti-Xa Level ABG pH ABG pO2 ABG HCO3 ABG O2 Saturation ABG Base Excess ABG Hemoglobin Oxyhemoglobin Sodium Potassium 5.6 H Chloride 108.4 H Carbon Dioxide BUN 71 H Creatinine 1.9 H Glucose 270 H POC Glucose 283 H Hemoglobin A1c Lactic Acid Calcium Phosphorus Magnesium Ferritin AST ALT Alkaline Phosphatase Lactate Dehydrogenase Troponin T C-Reactive Protein Total Protein Albumin LDL Cholesterol Direct Urine Creatinine Urine Total Protein Salicylates Acetaminophen Crossmatch 11/05/21 11/05/21 11/05/21 10:05 12:10 15:29 WBC RBC Hgb Hct MCH RDW Plt Count Lymph % (Auto) [place] % (Auto) Lymph # (Auto) [place] # (Auto) Seg Neutrophils % Seg Neuts % (Manual) Lymphocytes % (Manual) Monocytes % (Manual) Nucleated RBC % Seg Neutrophils # Seg Neutrophils # Man Monocytes # (Manual) Eosinophils # (Manual) Basophils # (Manual) PT INR APTT D-Dimer Heparin Anti-Xa Level ABG pH 7.248 L ABG pO2 73.7 L ABG HCO3 26.2 H ABG O2 Saturation 93.1 L ABG Base Excess ABG Hemoglobin 8.9 L Oxyhemoglobin 91.4 L Sodium Potassium Chloride Carbon Dioxide BUN Creatinine Glucose POC Glucose 225 H 199 H Hemoglobin A1c Lactic Acid Calcium Phosphorus Magnesium Ferritin AST ALT Alkaline Phosphatase Lactate Dehydrogenase Troponin T C-Reactive Protein Total Protein Albumin LDL Cholesterol Direct Urine Creatinine Urine Total Protein Salicylates Acetaminophen Crossmatch 11/05/21 11/05/21 11/05/21 15:51 17:32 17:40 WBC RBC Hgb Hct MCH RDW Plt Count Lymph % (Auto) [place] % (Auto) Lymph # (Auto) [place] # (Auto) Seg Neutrophils % Seg Neuts % (Manual) Lymphocytes % (Manual) Monocytes % (Manual) Nucleated RBC % Seg Neutrophils # Seg Neutrophils # Man Monocytes # (Manual) Eosinophils # (Manual) Basophils # (Manual) PT INR APTT D-Dimer Heparin Anti-Xa Level ABG pH ABG pO2 ABG HCO3 ABG O2 Saturation ABG Base Excess ABG Hemoglobin Oxyhemoglobin Sodium Potassium 5.2 H Chloride 107.8 H Carbon Dioxide BUN 79 H Creatinine 1.9 H Glucose 204 H POC Glucose 278 H 197 H Hemoglobin A1c Lactic Acid Calcium Phosphorus Magnesium Ferritin AST ALT Alkaline Phosphatase Lactate Dehydrogenase Troponin T C-Reactive Protein Total Protein Albumin LDL Cholesterol Direct Urine Creatinine Urine Total Protein Salicylates Acetaminophen Crossmatch 11/05/21 11/05/21 11/05/21 21:25 22:22 23:43 WBC RBC Hgb Hct MCH RDW Plt Count Lymph % (Auto) [place] % (Auto) Lymph # (Auto) [place] # (Auto) Seg Neutrophils % Seg Neuts % (Manual) Lymphocytes % (Manual) Monocytes % (Manual) Nucleated RBC % Seg Neutrophils # Seg Neutrophils # Man Monocytes # (Manual) Eosinophils # (Manual) Basophils # (Manual) PT INR APTT D-Dimer Heparin Anti-Xa Level ABG pH ABG pO2 ABG HCO3 ABG O2 Saturation ABG Base Excess ABG Hemoglobin Oxyhemoglobin Sodium Potassium 5.3 H Chloride 109.2 H Carbon Dioxide BUN 81 H Creatinine 2.0 H Glucose 195 H POC Glucose 180 H 203 H Hemoglobin A1c Lactic Acid Calcium Phosphorus Magnesium Ferritin AST ALT Alkaline Phosphatase Lactate Dehydrogenase Troponin T C-Reactive Protein Total Protein Albumin LDL Cholesterol Direct Urine Creatinine Urine Total Protein Salicylates Acetaminophen Crossmatch 11/05/21 11/06/21 11/06/21 Unknown 02:35 05:09 WBC RBC Hgb Hct MCH RDW Plt Count Lymph % (Auto) [place] % (Auto) Lymph # (Auto) [place] # (Auto) Seg Neutrophils % Seg Neuts % (Manual) Lymphocytes % (Manual) Monocytes % (Manual) Nucleated RBC % Seg Neutrophils # Seg Neutrophils # Man Monocytes # (Manual) Eosinophils # (Manual) Basophils # (Manual) PT INR APTT D-Dimer Heparin Anti-Xa Level ABG pH ABG pO2 ABG HCO3 ABG O2 Saturation ABG Base Excess ABG Hemoglobin Oxyhemoglobin Sodium 146 H Potassium 6.0 H Chloride 108.1 H 107.1 H Carbon Dioxide 21 L BUN 80 H 84 H Creatinine 2.0 H 2.0 H Glucose 238 H 235 H POC Glucose 215 H Hemoglobin A1c Lactic Acid Calcium Phosphorus Magnesium 2.80 H Ferritin AST ALT 77 H Alkaline Phosphatase Lactate Dehydrogenase Troponin T C-Reactive Protein Total Protein Albumin 3.0 L LDL Cholesterol Direct Urine Creatinine Urine Total Protein Salicylates Acetaminophen Crossmatch 11/06/21 11/06/21 11/06/21 05:40 08:07 08:07 WBC RBC Hgb Hct MCH RDW Plt Count Lymph % (Auto) [place] % (Auto) Lymph # (Auto) [place] # (Auto) Seg Neutrophils % Seg Neuts % (Manual) Lymphocytes % (Manual) Monocytes % (Manual) Nucleated RBC % Seg Neutrophils # Seg Neutrophils # Man Monocytes # (Manual) Eosinophils # (Manual) Basophils # (Manual) PT INR APTT D-Dimer Heparin Anti-Xa Level 1.24 H ABG pH 7.311 L ABG pO2 72.8 L ABG HCO3 29.7 H ABG O2 Saturation 94.1 L ABG Base Excess ABG Hemoglobin 11.4 L Oxyhemoglobin 92.3 L Sodium Potassium 5.2 H Chloride Carbon Dioxide BUN 85 H Creatinine 2.3 H Glucose 236 H POC Glucose Hemoglobin A1c Lactic Acid Calcium Phosphorus Magnesium Ferritin AST ALT Alkaline Phosphatase Lactate Dehydrogenase Troponin T C-Reactive Protein Total Protein Albumin LDL Cholesterol Direct Urine Creatinine Urine Total Protein Salicylates Acetaminophen Crossmatch 11/06/21 11/06/21 11/06/21 12:14 12:57 14:28 WBC RBC Hgb Hct MCH RDW Plt Count Lymph % (Auto) [place] % (Auto) Lymph # (Auto) [place] # (Auto) Seg Neutrophils % Seg Neuts % (Manual) Lymphocytes % (Manual) Monocytes % (Manual) Nucleated RBC % Seg Neutrophils # Seg Neutrophils # Man Monocytes # (Manual) Eosinophils # (Manual) Basophils # (Manual) PT INR APTT D-Dimer Heparin Anti-Xa Level ABG pH 7.282 L ABG pO2 72.6 L ABG HCO3 30.8 H ABG O2 Saturation 93.7 L ABG Base Excess 3.2 H ABG Hemoglobin 8.6 L Oxyhemoglobin 91.8 L Sodium Potassium Chloride Carbon Dioxide BUN 91 H Creatinine 2.6 H Glucose 259 H POC Glucose 225 H Hemoglobin A1c Lactic Acid Calcium Phosphorus Magnesium Ferritin AST ALT Alkaline Phosphatase Lactate Dehydrogenase Troponin T C-Reactive Protein Total Protein Albumin LDL Cholesterol Direct Urine Creatinine Urine Total Protein Salicylates Acetaminophen Crossmatch 11/06/21 11/06/21 11/06/21 17:28 19:20 21:30 WBC RBC Hgb Hct MCH RDW Plt Count Lymph % (Auto) [place] % (Auto) Lymph # (Auto) [place] # (Auto) Seg Neutrophils % Seg Neuts % (Manual) Lymphocytes % (Manual) Monocytes % (Manual) Nucleated RBC % Seg Neutrophils # Seg Neutrophils # Man Monocytes # (Manual) Eosinophils # (Manual) Basophils # (Manual) PT INR APTT D-Dimer Heparin Anti-Xa Level 0.73 H ABG pH ABG pO2 ABG HCO3 ABG O2 Saturation ABG Base Excess ABG Hemoglobin Oxyhemoglobin Sodium Potassium Chloride Carbon Dioxide BUN 95 H Creatinine 2.9 H Glucose 233 H POC Glucose 206 H Hemoglobin A1c Lactic Acid Calcium Phosphorus Magnesium Ferritin AST ALT Alkaline Phosphatase Lactate Dehydrogenase Troponin T C-Reactive Protein Total Protein Albumin LDL Cholesterol Direct Urine Creatinine Urine Total Protein Salicylates Acetaminophen Crossmatch 11/06/21 11/07/21 11/07/21 22:56 05:06 06:30 WBC RBC Hgb Hct MCH RDW Plt Count Lymph % (Auto) [place] % (Auto) Lymph # (Auto) [place] # (Auto) Seg Neutrophils % Seg Neuts % (Manual) Lymphocytes % (Manual) Monocytes % (Manual) Nucleated RBC % Seg Neutrophils # Seg Neutrophils # Man Monocytes # (Manual) Eosinophils # (Manual) Basophils # (Manual) PT INR APTT D-Dimer Heparin Anti-Xa Level ABG pH ABG pO2 ABG HCO3 ABG O2 Saturation ABG Base Excess ABG Hemoglobin Oxyhemoglobin Sodium 146 H Potassium Chloride Carbon Dioxide BUN 98 H Creatinine 2.8 H Glucose 202 H POC Glucose 215 H 172 H Hemoglobin A1c Lactic Acid Calcium Phosphorus 4.90 H D Magnesium 2.90 H Ferritin AST ALT Alkaline Phosphatase Lactate Dehydrogenase Troponin T C-Reactive Protein Total Protein Albumin LDL Cholesterol Direct Urine Creatinine Urine Total Protein Salicylates Acetaminophen Crossmatch 11/07/21 11/07/21 11/07/21 06:30 11:26 12:15 WBC 16.0 H RBC 3.06 L Hgb 8.2 L Hct 26.1 L MCH 27 L RDW 16.2 H Plt Count Lymph % (Auto) [place] % (Auto) Lymph # (Auto) [place] # (Auto) Seg Neutrophils % Seg Neuts % (Manual) 77.0 H Lymphocytes % (Manual) 11.0 L Monocytes % (Manual) Nucleated RBC % 2.0 H Seg Neutrophils # Seg Neutrophils # Man 12.3 H Monocytes # (Manual) Eosinophils # (Manual) Basophils # (Manual) PT INR APTT D-Dimer Heparin Anti-Xa Level ABG pH 7.298 L ABG pO2 73.0 L ABG HCO3 33.3 H ABG O2 Saturation 94.4 L ABG Base Excess 5.8 H ABG Hemoglobin 8.2 L Oxyhemoglobin 92.7 L Sodium Potassium Chloride Carbon Dioxide BUN Creatinine Glucose POC Glucose 179 H Hemoglobin A1c Lactic Acid Calcium Phosphorus Magnesium Ferritin AST ALT Alkaline Phosphatase Lactate Dehydrogenase Troponin T C-Reactive Protein Total Protein Albumin LDL Cholesterol Direct Urine Creatinine Urine Total Protein Salicylates Acetaminophen Crossmatch 11/07/21 11/07/21 11/07/21 17:57 22:16 23:49 WBC RBC Hgb Hct MCH RDW Plt Count Lymph % (Auto) [place] % (Auto) Lymph # (Auto) [place] # (Auto) Seg Neutrophils % Seg Neuts % (Manual) Lymphocytes % (Manual) Monocytes % (Manual) Nucleated RBC % Seg Neutrophils # Seg Neutrophils # Man Monocytes # (Manual) Eosinophils # (Manual) Basophils # (Manual) PT INR APTT D-Dimer Heparin Anti-Xa Level ABG pH ABG pO2 ABG HCO3 ABG O2 Saturation ABG Base Excess ABG Hemoglobin Oxyhemoglobin Sodium Potassium Chloride Carbon Dioxide BUN Creatinine Glucose POC Glucose 166 H 223 H 190 H Hemoglobin A1c Lactic Acid Calcium Phosphorus Magnesium Ferritin AST ALT Alkaline Phosphatase Lactate Dehydrogenase Troponin T C-Reactive Protein Total Protein Albumin LDL Cholesterol Direct Urine Creatinine Urine Total Protein Salicylates Acetaminophen Crossmatch 11/08/21 11/08/21 11/08/21 04:20 04:20 06:16 WBC 22.1 H RBC 3.01 L Hgb 8.1 L Hct 25.6 L MCH 27 L RDW 15.4 H Plt Count Lymph % (Auto) [place] % (Auto) Lymph # (Auto) [place] # (Auto) Seg Neutrophils % Seg Neuts % (Manual) Lymphocytes % (Manual) Monocytes % (Manual) Nucleated RBC % Seg Neutrophils # Seg Neutrophils # Man Monocytes # (Manual) Eosinophils # (Manual) Basophils # (Manual) PT INR APTT D-Dimer Heparin Anti-Xa Level ABG pH ABG pO2 ABG HCO3 ABG O2 Saturation ABG Base Excess ABG Hemoglobin Oxyhemoglobin Sodium 151 H Potassium 3.1 L D Chloride 107.3 H Carbon Dioxide 31 H BUN 82 H Creatinine 1.8 H Glucose 232 H POC Glucose 198 H Hemoglobin A1c Lactic Acid Calcium 8.1 L Phosphorus Magnesium Ferritin AST ALT Alkaline Phosphatase Lactate Dehydrogenase Troponin T C-Reactive Protein Total Protein Albumin LDL Cholesterol Direct Urine Creatinine Urine Total Protein Salicylates Acetaminophen Crossmatch 11/08/21 11/08/21 11/08/21 11:38 12:00 18:29 WBC RBC Hgb Hct MCH RDW Plt Count Lymph % (Auto) [place] % (Auto) Lymph # (Auto) [place] # (Auto) Seg Neutrophils % Seg Neuts % (Manual) Lymphocytes % (Manual) Monocytes % (Manual) Nucleated RBC % Seg Neutrophils # Seg Neutrophils # Man Monocytes # (Manual) Eosinophils # (Manual) Basophils # (Manual) PT INR APTT D-Dimer Heparin Anti-Xa Level ABG pH ABG pO2 ABG HCO3 ABG O2 Saturation ABG Base Excess ABG Hemoglobin Oxyhemoglobin Sodium Potassium 3.0 L Chloride Carbon Dioxide BUN Creatinine Glucose POC Glucose 190 H 211 H Hemoglobin A1c Lactic Acid Calcium Phosphorus Magnesium Ferritin AST ALT Alkaline Phosphatase Lactate Dehydrogenase Troponin T C-Reactive Protein Total Protein Albumin LDL Cholesterol Direct Urine Creatinine Urine Total Protein Salicylates Acetaminophen Crossmatch 11/08/21 11/08/21 11/09/21 21:34 21:40 00:36 WBC RBC Hgb Hct MCH RDW Plt Count Lymph % (Auto) [place] % (Auto) Lymph # (Auto) [place] # (Auto) Seg Neutrophils % Seg Neuts % (Manual) Lymphocytes % (Manual) Monocytes % (Manual) Nucleated RBC % Seg Neutrophils # Seg Neutrophils # Man Monocytes # (Manual) Eosinophils # (Manual) Basophils # (Manual) PT INR APTT D-Dimer Heparin Anti-Xa Level ABG pH ABG pO2 ABG HCO3 ABG O2 Saturation ABG Base Excess ABG Hemoglobin Oxyhemoglobin Sodium 148 H Potassium 2.8 L* Chloride Carbon Dioxide 31 H BUN 68 H Creatinine 1.5 H Glucose 191 H POC Glucose 194 H 140 H Hemoglobin A1c Lactic Acid Calcium 8.2 L Phosphorus Magnesium Ferritin AST ALT Alkaline Phosphatase Lactate Dehydrogenase Troponin T C-Reactive Protein Total Protein Albumin LDL Cholesterol Direct Urine Creatinine Urine Total Protein Salicylates Acetaminophen Crossmatch 11/09/21 11/09/21 11/09/21 04:51 04:51 04:51 WBC 27.6 H RBC 3.18 L Hgb 8.4 L Hct 26.6 L MCH 27 L RDW 15.3 H Plt Count Lymph % (Auto) [place] % (Auto) Lymph # (Auto) [place] # (Auto) Seg Neutrophils % Seg Neuts % (Manual) Lymphocytes % (Manual) Monocytes % (Manual) Nucleated RBC % Seg Neutrophils # Seg Neutrophils # Man Monocytes # (Manual) Eosinophils # (Manual) Basophils # (Manual) PT INR APTT D-Dimer Heparin Anti-Xa Level 0.18 L ABG pH ABG pO2 ABG HCO3 ABG O2 Saturation ABG Base Excess ABG Hemoglobin Oxyhemoglobin Sodium 148 H Potassium 2.7 L* Chloride Carbon Dioxide BUN 59 H Creatinine 1.4 H Glucose 143 H POC Glucose Hemoglobin A1c Lactic Acid Calcium 8.3 L Phosphorus Magnesium Ferritin AST ALT Alkaline Phosphatase Lactate Dehydrogenase Troponin T C-Reactive Protein Total Protein Albumin LDL Cholesterol Direct Urine Creatinine Urine Total Protein Salicylates Acetaminophen Crossmatch 11/09/21 11/09/21 11/09/21 05:52 08:45 11:00 WBC RBC Hgb Hct MCH RDW Plt Count Lymph % (Auto) [place] % (Auto) Lymph # (Auto) [place] # (Auto) Seg Neutrophils % Seg Neuts % (Manual) Lymphocytes % (Manual) Monocytes % (Manual) Nucleated RBC % Seg Neutrophils # Seg Neutrophils # Man Monocytes # (Manual) Eosinophils # (Manual) Basophils # (Manual) PT INR APTT D-Dimer Heparin Anti-Xa Level ABG pH ABG pO2 73.2 L ABG HCO3 33.8 H ABG O2 Saturation ABG Base Excess 8.7 H ABG Hemoglobin 8.5 L Oxyhemoglobin 94.1 L Sodium Potassium Chloride Carbon Dioxide BUN Creatinine Glucose POC Glucose 166 H 136 H Hemoglobin A1c Lactic Acid Calcium Phosphorus Magnesium Ferritin AST ALT Alkaline Phosphatase Lactate Dehydrogenase Troponin T C-Reactive Protein Total Protein Albumin LDL Cholesterol Direct Urine Creatinine Urine Total Protein Salicylates Acetaminophen Crossmatch 11/09/21 11/09/21 11/09/21 15:48 16:10 20:31 WBC RBC Hgb Hct MCH RDW Plt Count Lymph % (Auto) [place] % (Auto) Lymph # (Auto) [place] # (Auto) Seg Neutrophils % Seg Neuts % (Manual) Lymphocytes % (Manual) Monocytes % (Manual) Nucleated RBC % Seg Neutrophils # Seg Neutrophils # Man Monocytes # (Manual) Eosinophils # (Manual) Basophils # (Manual) PT INR APTT D-Dimer Heparin Anti-Xa Level ABG pH ABG pO2 ABG HCO3 ABG O2 Saturation ABG Base Excess ABG Hemoglobin Oxyhemoglobin Sodium Potassium 2.8 L* Chloride Carbon Dioxide 31 H BUN 53 H Creatinine 1.3 H Glucose 208 H POC Glucose 203 H 166 H Hemoglobin A1c Lactic Acid Calcium 7.9 L Phosphorus Magnesium Ferritin AST ALT Alkaline Phosphatase Lactate Dehydrogenase Troponin T C-Reactive Protein Total Protein Albumin LDL Cholesterol Direct Urine Creatinine Urine Total Protein Salicylates Acetaminophen Crossmatch 11/09/21 11/09/21 11/09/21 21:30 23:16 Unknown WBC RBC Hgb Hct MCH RDW Plt Count Lymph % (Auto) [place] % (Auto) Lymph # (Auto) [place] # (Auto) Seg Neutrophils % Seg Neuts % (Manual) Lymphocytes % (Manual) Monocytes % (Manual) Nucleated RBC % Seg Neutrophils # Seg Neutrophils # Man Monocytes # (Manual) Eosinophils # (Manual) Basophils # (Manual) PT INR APTT D-Dimer Heparin Anti-Xa Level 0.24 L ABG pH ABG pO2 ABG HCO3 ABG O2 Saturation ABG Base Excess ABG Hemoglobin Oxyhemoglobin Sodium Potassium Chloride Carbon Dioxide BUN 52 H Creatinine 1.4 H Glucose 185 H POC Glucose 172 H Hemoglobin A1c Lactic Acid Calcium 7.8 L Phosphorus Magnesium Ferritin AST ALT Alkaline Phosphatase Lactate Dehydrogenase Troponin T C-Reactive Protein Total Protein Albumin LDL Cholesterol Direct Urine Creatinine Urine Total Protein Salicylates Acetaminophen Crossmatch 11/10/21 11/10/21 11/10/21 02:00 04:17 04:17 WBC 24.5 H RBC 2.75 L Hgb 7.5 L Hct 22.9 L MCH 27 L RDW Plt Count Lymph % (Auto) [place] % (Auto) Lymph # (Auto) [place] # (Auto) Seg Neutrophils % Seg Neuts % (Manual) Lymphocytes % (Manual) Monocytes % (Manual) Nucleated RBC % Seg Neutrophils # Seg Neutrophils # Man Monocytes # (Manual) Eosinophils # (Manual) Basophils # (Manual) PT INR APTT D-Dimer Heparin Anti-Xa Level 0.26 L ABG pH ABG pO2 ABG HCO3 ABG O2 Saturation ABG Base Excess ABG Hemoglobin Oxyhemoglobin Sodium Potassium 2.9 L* Chloride Carbon Dioxide 35 H BUN 48 H Creatinine Glucose 212 H POC Glucose Hemoglobin A1c Lactic Acid Calcium 8.1 L Phosphorus Magnesium Ferritin AST ALT Alkaline Phosphatase Lactate Dehydrogenase Troponin T C-Reactive Protein Total Protein Albumin LDL Cholesterol Direct Urine Creatinine Urine Total Protein Salicylates Acetaminophen Crossmatch 11/10/21 11/10/21 11/10/21 05:01 08:39 11:03 WBC RBC Hgb Hct MCH RDW Plt Count Lymph % (Auto) [place] % (Auto) Lymph # (Auto) [place] # (Auto) Seg Neutrophils % Seg Neuts % (Manual) Lymphocytes % (Manual) Monocytes % (Manual) Nucleated RBC % Seg Neutrophils # Seg Neutrophils # Man Monocytes # (Manual) Eosinophils # (Manual) Basophils # (Manual) PT INR APTT D-Dimer Heparin Anti-Xa Level 0.12 L ABG pH ABG pO2 ABG HCO3 ABG O2 Saturation ABG Base Excess ABG Hemoglobin Oxyhemoglobin Sodium Potassium Chloride Carbon Dioxide BUN Creatinine Glucose POC Glucose 203 H 152 H Hemoglobin A1c Lactic Acid Calcium Phosphorus Magnesium Ferritin AST ALT Alkaline Phosphatase Lactate Dehydrogenase Troponin T C-Reactive Protein Total Protein Albumin LDL Cholesterol Direct Urine Creatinine Urine Total Protein Salicylates Acetaminophen Crossmatch 11/10/21 11/10/21 11/10/21 12:45 15:43 21:05 WBC RBC Hgb Hct MCH RDW Plt Count Lymph % (Auto) [place] % (Auto) Lymph # (Auto) [place] # (Auto) Seg Neutrophils % Seg Neuts % (Manual) Lymphocytes % (Manual) Monocytes % (Manual) Nucleated RBC % Seg Neutrophils # Seg Neutrophils # Man Monocytes # (Manual) Eosinophils # (Manual) Basophils # (Manual) PT INR APTT D-Dimer Heparin Anti-Xa Level ABG pH ABG pO2 ABG HCO3 ABG O2 Saturation ABG Base Excess ABG Hemoglobin Oxyhemoglobin Sodium 146 H Potassium 3.3 L Chloride Carbon Dioxide 31 H BUN 43 H Creatinine Glucose 155 H POC Glucose 139 H 139 H Hemoglobin A1c Lactic Acid Calcium 8.3 L Phosphorus Magnesium Ferritin AST ALT Alkaline Phosphatase Lactate Dehydrogenase Troponin T C-Reactive Protein Total Protein Albumin LDL Cholesterol Direct Urine Creatinine Urine Total Protein Salicylates Acetaminophen Crossmatch 11/10/21 11/11/21 11/11/21 23:25 03:49 03:49 WBC 22.1 H RBC 2.69 L Hgb 7.2 L Hct 22.7 L MCH 27 L RDW Plt Count Lymph % (Auto) [place] % (Auto) Lymph # (Auto) [place] # (Auto) Seg Neutrophils % Seg Neuts % (Manual) Lymphocytes % (Manual) Monocytes % (Manual) Nucleated RBC % Seg Neutrophils # Seg Neutrophils # Man Monocytes # (Manual) Eosinophils # (Manual) Basophils # (Manual) PT INR APTT D-Dimer Heparin Anti-Xa Level ABG pH ABG pO2 ABG HCO3 ABG O2 Saturation ABG Base Excess ABG Hemoglobin Oxyhemoglobin Sodium Potassium Chloride Carbon Dioxide 32 H BUN 44 H Creatinine 1.3 H Glucose 173 H POC Glucose 146 H Hemoglobin A1c Lactic Acid Calcium Phosphorus Magnesium Ferritin AST ALT Alkaline Phosphatase Lactate Dehydrogenase Troponin T C-Reactive Protein Total Protein Albumin LDL Cholesterol Direct Urine Creatinine Urine Total Protein Salicylates Acetaminophen Crossmatch 11/11/21 11/11/21 11/11/21 05:03 10:50 11:32 WBC RBC Hgb Hct MCH RDW Plt Count Lymph % (Auto) [place] % (Auto) Lymph # (Auto) [place] # (Auto) Seg Neutrophils % Seg Neuts % (Manual) Lymphocytes % (Manual) Monocytes % (Manual) Nucleated RBC % Seg Neutrophils # Seg Neutrophils # Man Monocytes # (Manual) Eosinophils # (Manual) Basophils # (Manual) PT INR APTT D-Dimer Heparin Anti-Xa Level ABG pH ABG pO2 ABG HCO3 ABG O2 Saturation ABG Base Excess ABG Hemoglobin Oxyhemoglobin Sodium Potassium Chloride Carbon Dioxide BUN Creatinine Glucose POC Glucose 152 H 129 H 133 H Hemoglobin A1c Lactic Acid Calcium Phosphorus Magnesium Ferritin AST ALT Alkaline Phosphatase Lactate Dehydrogenase Troponin T C-Reactive Protein Total Protein Albumin LDL Cholesterol Direct Urine Creatinine Urine Total Protein Salicylates Acetaminophen Crossmatch 11/11/21 11/11/21 11/11/21 13:53 16:31 17:13 WBC RBC Hgb Hct MCH RDW Plt Count Lymph % (Auto) [place] % (Auto) Lymph # (Auto) [place] # (Auto) Seg Neutrophils % Seg Neuts % (Manual) Lymphocytes % (Manual) Monocytes % (Manual) Nucleated RBC % Seg Neutrophils # Seg Neutrophils # Man Monocytes # (Manual) Eosinophils # (Manual) Basophils # (Manual) PT INR APTT D-Dimer Heparin Anti-Xa Level ABG pH 7.475 H ABG pO2 64.1 L ABG HCO3 32.4 H ABG O2 Saturation ABG Base Excess 8.0 H ABG Hemoglobin 7.6 L Oxyhemoglobin 94.0 L Sodium Potassium Chloride Carbon Dioxide BUN Creatinine Glucose POC Glucose 116 H 125 H Hemoglobin A1c Lactic Acid Calcium Phosphorus Magnesium Ferritin AST ALT Alkaline Phosphatase Lactate Dehydrogenase Troponin T C-Reactive Protein Total Protein Albumin LDL Cholesterol Direct Urine Creatinine Urine Total Protein Salicylates Acetaminophen Crossmatch 11/11/21 11/11/21 11/12/21 20:40 23:35 03:30 WBC 17.7 H RBC 2.37 L Hgb 6.3 L Hct 20.0 L MCH 27 L RDW 15.5 H Plt Count Lymph % (Auto) [place] % (Auto) Lymph # (Auto) [place] # (Auto) Seg Neutrophils % Seg Neuts % (Manual) Lymphocytes % (Manual) Monocytes % (Manual) Nucleated RBC % Seg Neutrophils # Seg Neutrophils # Man Monocytes # (Manual) Eosinophils # (Manual) Basophils # (Manual) PT INR APTT D-Dimer Heparin Anti-Xa Level 0.26 L ABG pH ABG pO2 ABG HCO3 ABG O2 Saturation ABG Base Excess ABG Hemoglobin Oxyhemoglobin Sodium Potassium Chloride Carbon Dioxide BUN Creatinine Glucose POC Glucose 118 H Hemoglobin A1c Lactic Acid Calcium Phosphorus Magnesium Ferritin AST ALT Alkaline Phosphatase Lactate Dehydrogenase Troponin T C-Reactive Protein Total Protein Albumin LDL Cholesterol Direct Urine Creatinine Urine Total Protein Salicylates Acetaminophen Crossmatch 11/12/21 11/12/21 11/12/21 03:30 04:15 11:53 WBC RBC Hgb Hct MCH RDW Plt Count Lymph % (Auto) [place] % (Auto) Lymph # (Auto) [place] # (Auto) Seg Neutrophils % Seg Neuts % (Manual) Lymphocytes % (Manual) Monocytes % (Manual) Nucleated RBC % Seg Neutrophils # Seg Neutrophils # Man Monocytes # (Manual) Eosinophils # (Manual) Basophils # (Manual) PT INR APTT D-Dimer Heparin Anti-Xa Level ABG pH ABG pO2 ABG HCO3 ABG O2 Saturation ABG Base Excess ABG Hemoglobin Oxyhemoglobin Sodium Potassium Chloride Carbon Dioxide 33 H BUN 38 H Creatinine 1.3 H Glucose 102 H POC Glucose 62 L Hemoglobin A1c Lactic Acid Calcium 8.2 L Phosphorus Magnesium Ferritin AST ALT Alkaline Phosphatase Lactate Dehydrogenase Troponin T C-Reactive Protein Total Protein Albumin LDL Cholesterol Direct Urine Creatinine Urine Total Protein Salicylates Acetaminophen Crossmatch See Detail 11/12/21 11/12/21 11/12/21 17:20 19:14 23:11 WBC RBC Hgb 6.2 L Hct 19.5 L* MCH RDW Plt Count Lymph % (Auto) [place] % (Auto) Lymph # (Auto) [place] # (Auto) Seg Neutrophils % Seg Neuts % (Manual) Lymphocytes % (Manual) Monocytes % (Manual) Nucleated RBC % Seg Neutrophils # Seg Neutrophils # Man Monocytes # (Manual) Eosinophils # (Manual) Basophils # (Manual) PT INR APTT D-Dimer Heparin Anti-Xa Level ABG pH ABG pO2 ABG HCO3 ABG O2 Saturation ABG Base Excess ABG Hemoglobin Oxyhemoglobin Sodium Potassium Chloride Carbon Dioxide BUN Creatinine Glucose POC Glucose 115 H 131 H Hemoglobin A1c Lactic Acid Calcium Phosphorus Magnesium Ferritin AST ALT Alkaline Phosphatase Lactate Dehydrogenase Troponin T C-Reactive Protein Total Protein Albumin LDL Cholesterol Direct Urine Creatinine Urine Total Protein Salicylates Acetaminophen Crossmatch 11/13/21 11/13/21 11/13/21 00:13 04:17 04:17 WBC 23.8 H RBC 2.84 L Hgb 7.4 L 7.8 L Hct 23.3 L 24.9 L MCH 27 L RDW 15.4 H Plt Count Lymph % (Auto) [place] % (Auto) Lymph # (Auto) [place] # (Auto) Seg Neutrophils % Seg Neuts % (Manual) Lymphocytes % (Manual) Monocytes % (Manual) Nucleated RBC % Seg Neutrophils # Seg Neutrophils # Man Monocytes # (Manual) Eosinophils # (Manual) Basophils # (Manual) PT INR APTT D-Dimer Heparin Anti-Xa Level ABG pH ABG pO2 ABG HCO3 ABG O2 Saturation ABG Base Excess ABG Hemoglobin Oxyhemoglobin Sodium 146 H Potassium Chloride Carbon Dioxide BUN 44 H Creatinine 1.6 H Glucose 144 H POC Glucose Hemoglobin A1c Lactic Acid Calcium 7.9 L Phosphorus 5.10 H D Magnesium Ferritin AST ALT Alkaline Phosphatase Lactate Dehydrogenase Troponin T C-Reactive Protein Total Protein Albumin LDL Cholesterol Direct Urine Creatinine Urine Total Protein Salicylates Acetaminophen Crossmatch 11/13/21 11/13/21 11/13/21 05:52 10:54 15:57 WBC RBC Hgb Hct MCH RDW Plt Count Lymph % (Auto) [place] % (Auto) Lymph # (Auto) [place] # (Auto) Seg Neutrophils % Seg Neuts % (Manual) Lymphocytes % (Manual) Monocytes % (Manual) Nucleated RBC % Seg Neutrophils # Seg Neutrophils # Man Monocytes # (Manual) Eosinophils # (Manual) Basophils # (Manual) PT INR APTT D-Dimer Heparin Anti-Xa Level ABG pH ABG pO2 ABG HCO3 ABG O2 Saturation ABG Base Excess ABG Hemoglobin Oxyhemoglobin Sodium Potassium Chloride Carbon Dioxide BUN Creatinine Glucose POC Glucose 123 H 147 H 207 H Hemoglobin A1c Lactic Acid Calcium Phosphorus Magnesium Ferritin AST ALT Alkaline Phosphatase Lactate Dehydrogenase Troponin T C-Reactive Protein Total Protein Albumin LDL Cholesterol Direct Urine Creatinine Urine Total Protein Salicylates Acetaminophen Crossmatch 11/13/21 11/13/21 11/14/21 16:01 23:18 04:55 WBC 23.9 H RBC 2.86 L Hgb 6.5 L 8.3 L Hct 20.3 L 24.5 L MCH RDW Plt Count Lymph % (Auto) [place] % (Auto) Lymph # (Auto) [place] # (Auto) Seg Neutrophils % Seg Neuts % (Manual) Lymphocytes % (Manual) Monocytes % (Manual) Nucleated RBC % Seg Neutrophils # Seg Neutrophils # Man Monocytes # (Manual) Eosinophils # (Manual) Basophils # (Manual) PT INR APTT D-Dimer Heparin Anti-Xa Level ABG pH ABG pO2 ABG HCO3 ABG O2 Saturation ABG Base Excess ABG Hemoglobin Oxyhemoglobin Sodium Potassium Chloride Carbon Dioxide BUN Creatinine Glucose POC Glucose 209 H Hemoglobin A1c Lactic Acid Calcium Phosphorus Magnesium Ferritin AST ALT Alkaline Phosphatase Lactate Dehydrogenase Troponin T C-Reactive Protein Total Protein Albumin LDL Cholesterol Direct Urine Creatinine Urine Total Protein Salicylates Acetaminophen Crossmatch 11/14/21 11/14/21 11/14/21 04:55 05:09 11:35 WBC RBC Hgb Hct MCH RDW Plt Count Lymph % (Auto) [place] % (Auto) Lymph # (Auto) [place] # (Auto) Seg Neutrophils % Seg Neuts % (Manual) Lymphocytes % (Manual) Monocytes % (Manual) Nucleated RBC % Seg Neutrophils # Seg Neutrophils # Man Monocytes # (Manual) Eosinophils # (Manual) Basophils # (Manual) PT INR APTT D-Dimer Heparin Anti-Xa Level ABG pH ABG pO2 ABG HCO3 ABG O2 Saturation ABG Base Excess ABG Hemoglobin Oxyhemoglobin Sodium 148 H Potassium Chloride 109.0 H Carbon Dioxide BUN 42 H Creatinine 1.6 H Glucose 184 H POC Glucose 169 H 154 H Hemoglobin A1c Lactic Acid Calcium 8.0 L Phosphorus Magnesium Ferritin AST ALT Alkaline Phosphatase Lactate Dehydrogenase Troponin T C-Reactive Protein Total Protein Albumin LDL Cholesterol Direct Urine Creatinine Urine Total Protein Salicylates Acetaminophen Crossmatch 11/14/21 11/14/21 11/15/21 16:57 23:11 04:36 WBC RBC Hgb Hct MCH RDW Plt Count Lymph % (Auto) [place] % (Auto) Lymph # (Auto) [place] # (Auto) Seg Neutrophils % Seg Neuts % (Manual) Lymphocytes % (Manual) Monocytes % (Manual) Nucleated RBC % Seg Neutrophils # Seg Neutrophils # Man Monocytes # (Manual) Eosinophils # (Manual) Basophils # (Manual) PT INR APTT D-Dimer Heparin Anti-Xa Level ABG pH ABG pO2 ABG HCO3 ABG O2 Saturation ABG Base Excess ABG Hemoglobin Oxyhemoglobin Sodium 151 H Potassium Chloride 111.2 H Carbon Dioxide BUN 36 H Creatinine 1.3 H Glucose 136 H POC Glucose 124 H 118 H Hemoglobin A1c Lactic Acid Calcium 8.1 L Phosphorus Magnesium Ferritin AST ALT Alkaline Phosphatase Lactate Dehydrogenase Troponin T C-Reactive Protein Total Protein Albumin LDL Cholesterol Direct Urine Creatinine Urine Total Protein Salicylates Acetaminophen Crossmatch 11/15/21 11/15/21 11/16/21 11:18 21:49 00:15 WBC RBC Hgb Hct MCH RDW Plt Count Lymph % (Auto) [place] % (Auto) Lymph # (Auto) [place] # (Auto) Seg Neutrophils % Seg Neuts % (Manual) Lymphocytes % (Manual) Monocytes % (Manual) Nucleated RBC % Seg Neutrophils # Seg Neutrophils # Man Monocytes # (Manual) Eosinophils # (Manual) Basophils # (Manual) PT INR APTT D-Dimer Heparin Anti-Xa Level ABG pH ABG pO2 ABG HCO3 ABG O2 Saturation ABG Base Excess ABG Hemoglobin Oxyhemoglobin Sodium Potassium Chloride Carbon Dioxide BUN Creatinine Glucose POC Glucose 154 H 154 H 146 H Hemoglobin A1c Lactic Acid Calcium Phosphorus Magnesium Ferritin AST ALT Alkaline Phosphatase Lactate Dehydrogenase Troponin T C-Reactive Protein Total Protein Albumin LDL Cholesterol Direct Urine Creatinine Urine Total Protein Salicylates Acetaminophen Crossmatch 11/16/21 11/16/21 11/16/21 05:11 05:11 05:37 WBC 18.2 H RBC 2.92 L Hgb 8.3 L Hct 26.1 L MCH RDW 15.8 H Plt Count Lymph % (Auto) 6.3 L [place] % (Auto) 10.2 H Lymph # (Auto) [place] # (Auto) 1.9 H Seg Neutrophils % 81.7 H Seg Neuts % (Manual) Lymphocytes % (Manual) Monocytes % (Manual) Nucleated RBC % Seg Neutrophils # 14.9 H Seg Neutrophils # Man Monocytes # (Manual) Eosinophils # (Manual) Basophils # (Manual) PT INR APTT D-Dimer Heparin Anti-Xa Level ABG pH ABG pO2 ABG HCO3 ABG O2 Saturation ABG Base Excess ABG Hemoglobin Oxyhemoglobin Sodium 146 H Potassium Chloride 108.0 H Carbon Dioxide BUN 25 H Creatinine Glucose 123 H POC Glucose 109 H Hemoglobin A1c Lactic Acid Calcium 7.8 L Phosphorus Magnesium Ferritin AST ALT Alkaline Phosphatase Lactate Dehydrogenase Troponin T C-Reactive Protein Total Protein Albumin LDL Cholesterol Direct Urine Creatinine Urine Total Protein Salicylates Acetaminophen Crossmatch 11/16/21 11/16/21 11/17/21 11:22 23:55 04:33 WBC RBC Hgb Hct MCH RDW Plt Count Lymph % (Auto) [place] % (Auto) Lymph # (Auto) [place] # (Auto) Seg Neutrophils % Seg Neuts % (Manual) Lymphocytes % (Manual) Monocytes % (Manual) Nucleated RBC % Seg Neutrophils # Seg Neutrophils # Man Monocytes # (Manual) Eosinophils # (Manual) Basophils # (Manual) PT INR APTT D-Dimer Heparin Anti-Xa Level ABG pH ABG pO2 ABG HCO3 ABG O2 Saturation ABG Base Excess ABG Hemoglobin Oxyhemoglobin Sodium Potassium Chloride Carbon Dioxide BUN 20 H Creatinine Glucose POC Glucose 136 H 113 H Hemoglobin A1c Lactic Acid Calcium 7.5 L Phosphorus Magnesium Ferritin AST ALT Alkaline Phosphatase Lactate Dehydrogenase Troponin T C-Reactive Protein Total Protein Albumin LDL Cholesterol Direct Urine Creatinine Urine Total Protein Salicylates Acetaminophen Crossmatch 11/17/21 11/18/21 11/18/21 23:22 04:53 04:53 WBC 13.0 H RBC 2.99 L Hgb 8.5 L Hct 26.4 L MCH RDW Plt Count Lymph % (Auto) 9.5 L [place] % (Auto) 9.8 H Lymph # (Auto) [place] # (Auto) 1.3 H Seg Neutrophils % 78.3 H Seg Neuts % (Manual) Lymphocytes % (Manual) Monocytes % (Manual) Nucleated RBC % Seg Neutrophils # 10.2 H Seg Neutrophils # Man Monocytes # (Manual) Eosinophils # (Manual) Basophils # (Manual) PT INR APTT D-Dimer Heparin Anti-Xa Level ABG pH ABG pO2 ABG HCO3 ABG O2 Saturation ABG Base Excess ABG Hemoglobin Oxyhemoglobin Sodium Potassium Chloride Carbon Dioxide BUN 18 H Creatinine Glucose 106 H POC Glucose 112 H Hemoglobin A1c Lactic Acid Calcium 8.1 L Phosphorus Magnesium Ferritin AST ALT Alkaline Phosphatase Lactate Dehydrogenase Troponin T C-Reactive Protein Total Protein Albumin LDL Cholesterol Direct Urine Creatinine Urine Total Protein Salicylates Acetaminophen Crossmatch 11/18/21 11/18/21 11/19/21 11:35 17:42 14:38 WBC RBC Hgb Hct MCH RDW Plt Count Lymph % (Auto) [place] % (Auto) Lymph # (Auto) [place] # (Auto) Seg Neutrophils % Seg Neuts % (Manual) Lymphocytes % (Manual) Monocytes % (Manual) Nucleated RBC % Seg Neutrophils # Seg Neutrophils # Man Monocytes # (Manual) Eosinophils # (Manual) Basophils # (Manual) PT INR APTT D-Dimer Heparin Anti-Xa Level ABG pH ABG pO2 ABG HCO3 ABG O2 Saturation ABG Base Excess ABG Hemoglobin Oxyhemoglobin Sodium Potassium Chloride 97.5 L Carbon Dioxide 31 H BUN Creatinine Glucose 146 H POC Glucose 143 H 132 H Hemoglobin A1c Lactic Acid Calcium Phosphorus Magnesium 1.60 L Ferritin AST ALT Alkaline Phosphatase Lactate Dehydrogenase Troponin T C-Reactive Protein Total Protein Albumin LDL Cholesterol Direct Urine Creatinine Urine Total Protein Salicylates Acetaminophen Crossmatch 11/19/21 11/19/21 11/20/21 16:24 23:58 07:42 WBC RBC 3.01 L Hgb 8.6 L Hct 26.7 L MCH RDW 15.4 H Plt Count Lymph % (Auto) [place] % (Auto) Lymph # (Auto) [place] # (Auto) Seg Neutrophils % Seg Neuts % (Manual) Lymphocytes % (Manual) Monocytes % (Manual) Nucleated RBC % Seg Neutrophils # Seg Neutrophils # Man Monocytes # (Manual) Eosinophils # (Manual) Basophils # (Manual) PT INR APTT D-Dimer Heparin Anti-Xa Level ABG pH ABG pO2 ABG HCO3 ABG O2 Saturation ABG Base Excess ABG Hemoglobin Oxyhemoglobin Sodium Potassium Chloride Carbon Dioxide BUN Creatinine Glucose POC Glucose 129 H 125 H Hemoglobin A1c Lactic Acid Calcium Phosphorus Magnesium Ferritin AST ALT Alkaline Phosphatase Lactate Dehydrogenase Troponin T C-Reactive Protein Total Protein Albumin LDL Cholesterol Direct Urine Creatinine Urine Total Protein Salicylates Acetaminophen Crossmatch 11/20/21 11/20/21 11/20/21 07:42 11:25 22:59 WBC RBC Hgb Hct MCH RDW Plt Count Lymph % (Auto) [place] % (Auto) Lymph # (Auto) [place] # (Auto) Seg Neutrophils % Seg Neuts % (Manual) Lymphocytes % (Manual) Monocytes % (Manual) Nucleated RBC % Seg Neutrophils # Seg Neutrophils # Man Monocytes # (Manual) Eosinophils # (Manual) Basophils # (Manual) PT INR APTT D-Dimer Heparin Anti-Xa Level ABG pH ABG pO2 ABG HCO3 ABG O2 Saturation ABG Base Excess ABG Hemoglobin Oxyhemoglobin Sodium Potassium Chloride Carbon Dioxide 31 H BUN Creatinine Glucose POC Glucose 116 H 113 H Hemoglobin A1c Lactic Acid Calcium Phosphorus Magnesium Ferritin AST ALT Alkaline Phosphatase Lactate Dehydrogenase Troponin T C-Reactive Protein Total Protein Albumin LDL Cholesterol Direct Urine Creatinine Urine Total Protein Salicylates Acetaminophen Crossmatch 11/21/21 11/22/21 11/22/21 10:50 05:10 16:12 WBC RBC Hgb Hct MCH RDW Plt Count Lymph % (Auto) [place] % (Auto) Lymph # (Auto) [place] # (Auto) Seg Neutrophils % Seg Neuts % (Manual) Lymphocytes % (Manual) Monocytes % (Manual) Nucleated RBC % Seg Neutrophils # Seg Neutrophils # Man Monocytes # (Manual) Eosinophils # (Manual) Basophils # (Manual) PT INR APTT D-Dimer Heparin Anti-Xa Level ABG pH ABG pO2 ABG HCO3 ABG O2 Saturation ABG Base Excess ABG Hemoglobin Oxyhemoglobin Sodium Potassium Chloride Carbon Dioxide 32 H BUN Creatinine Glucose POC Glucose 156 H 110 H Hemoglobin A1c Lactic Acid Calcium 8.1 L Phosphorus Magnesium Ferritin AST ALT Alkaline Phosphatase Lactate Dehydrogenase Troponin T C-Reactive Protein Total Protein Albumin LDL Cholesterol Direct Urine Creatinine Urine Total Protein Salicylates Acetaminophen Crossmatch 11/23/21 11/23/21 11/23/21 07:18 07:18 11:45 WBC RBC 3.23 L Hgb 9.1 L Hct 28.5 L MCH RDW 15.6 H Plt Count Lymph % (Auto) [place] % (Auto) Lymph # (Auto) [place] # (Auto) Seg Neutrophils % Seg Neuts % (Manual) Lymphocytes % (Manual) Monocytes % (Manual) Nucleated RBC % Seg Neutrophils # Seg Neutrophils # Man Monocytes # (Manual) Eosinophils # (Manual) Basophils # (Manual) PT INR APTT D-Dimer Heparin Anti-Xa Level ABG pH ABG pO2 ABG HCO3 ABG O2 Saturation ABG Base Excess ABG Hemoglobin Oxyhemoglobin Sodium Potassium 3.3 L Chloride 96.8 L Carbon Dioxide 32 H BUN Creatinine Glucose POC Glucose 140 H Hemoglobin A1c Lactic Acid Calcium Phosphorus Magnesium Ferritin AST ALT Alkaline Phosphatase Lactate Dehydrogenase Troponin T C-Reactive Protein Total Protein Albumin LDL Cholesterol Direct Urine Creatinine Urine Total Protein Salicylates Acetaminophen Crossmatch 11/23/21 11/23/21 11/24/21 16:40 23:45 07:19 WBC RBC 3.12 L Hgb 9.3 L Hct 27.2 L MCH RDW 16.0 H Plt Count Lymph % (Auto) 10.3 L [place] % (Auto) 10.0 H Lymph # (Auto) 1.1 L [place] # (Auto) 1.1 H Seg Neutrophils % 75.2 H Seg Neuts % (Manual) Lymphocytes % (Manual) Monocytes % (Manual) Nucleated RBC % Seg Neutrophils # 7.9 H Seg Neutrophils # Man Monocytes # (Manual) Eosinophils # (Manual) Basophils # (Manual) PT INR APTT D-Dimer Heparin Anti-Xa Level ABG pH ABG pO2 ABG HCO3 ABG O2 Saturation ABG Base Excess ABG Hemoglobin Oxyhemoglobin Sodium Potassium Chloride Carbon Dioxide BUN Creatinine Glucose POC Glucose 140 H 138 H Hemoglobin A1c Lactic Acid Calcium Phosphorus Magnesium Ferritin AST ALT Alkaline Phosphatase Lactate Dehydrogenase Troponin T C-Reactive Protein Total Protein Albumin LDL Cholesterol Direct Urine Creatinine Urine Total Protein Salicylates Acetaminophen Crossmatch 11/24/21 11/24/21 11/24/21 07:19 11:49 15:54 WBC RBC Hgb Hct MCH RDW Plt Count Lymph % (Auto) [place] % (Auto) Lymph # (Auto) [place] # (Auto) Seg Neutrophils % Seg Neuts % (Manual) Lymphocytes % (Manual) Monocytes % (Manual) Nucleated RBC % Seg Neutrophils # Seg Neutrophils # Man Monocytes # (Manual) Eosinophils # (Manual) Basophils # (Manual) PT INR APTT D-Dimer Heparin Anti-Xa Level ABG pH ABG pO2 ABG HCO3 ABG O2 Saturation ABG Base Excess ABG Hemoglobin Oxyhemoglobin Sodium Potassium 3.2 L Chloride 96.7 L Carbon Dioxide BUN Creatinine Glucose 125 H POC Glucose 118 H 106 H Hemoglobin A1c Lactic Acid Calcium Phosphorus Magnesium Ferritin AST ALT Alkaline Phosphatase Lactate Dehydrogenase Troponin T C-Reactive Protein Total Protein Albumin LDL Cholesterol Direct Urine Creatinine Urine Total Protein Salicylates Acetaminophen Crossmatch 11/25/21 11/25/21 11/25/21 11:49 15:41 20:51 WBC RBC Hgb Hct MCH RDW Plt Count Lymph % (Auto) [place] % (Auto) Lymph # (Auto) [place] # (Auto) Seg Neutrophils % Seg Neuts % (Manual) Lymphocytes % (Manual) Monocytes % (Manual) Nucleated RBC % Seg Neutrophils # Seg Neutrophils # Man Monocytes # (Manual) Eosinophils # (Manual) Basophils # (Manual) PT INR APTT D-Dimer Heparin Anti-Xa Level ABG pH ABG pO2 ABG HCO3 ABG O2 Saturation ABG Base Excess ABG Hemoglobin Oxyhemoglobin Sodium Potassium Chloride Carbon Dioxide BUN Creatinine Glucose POC Glucose 119 H 110 H 109 H Hemoglobin A1c Lactic Acid Calcium Phosphorus Magnesium Ferritin AST ALT Alkaline Phosphatase Lactate Dehydrogenase Troponin T C-Reactive Protein Total Protein Albumin LDL Cholesterol Direct Urine Creatinine Urine Total Protein Salicylates Acetaminophen Crossmatch 11/26/21 11/26/21 11/26/21 07:33 11:20 17:03 WBC RBC Hgb Hct MCH RDW Plt Count Lymph % (Auto) [place] % (Auto) Lymph # (Auto) [place] # (Auto) Seg Neutrophils % Seg Neuts % (Manual) Lymphocytes % (Manual) Monocytes % (Manual) Nucleated RBC % Seg Neutrophils # Seg Neutrophils # Man Monocytes # (Manual) Eosinophils # (Manual) Basophils # (Manual) PT INR APTT D-Dimer Heparin Anti-Xa Level ABG pH ABG pO2 ABG HCO3 ABG O2 Saturation ABG Base Excess ABG Hemoglobin Oxyhemoglobin Sodium Potassium Chloride Carbon Dioxide BUN Creatinine Glucose POC Glucose 158 H 162 H 144 H Hemoglobin A1c Lactic Acid Calcium Phosphorus Magnesium Ferritin AST ALT Alkaline Phosphatase Lactate Dehydrogenase Troponin T C-Reactive Protein Total Protein Albumin LDL Cholesterol Direct Urine Creatinine Urine Total Protein Salicylates Acetaminophen Crossmatch 11/26/21 11/27/21 11/27/21 21:51 07:44 12:20 WBC RBC Hgb Hct MCH RDW Plt Count Lymph % (Auto) [place] % (Auto) Lymph # (Auto) [place] # (Auto) Seg Neutrophils % Seg Neuts % (Manual) Lymphocytes % (Manual) Monocytes % (Manual) Nucleated RBC % Seg Neutrophils # Seg Neutrophils # Man Monocytes # (Manual) Eosinophils # (Manual) Basophils # (Manual) PT INR APTT D-Dimer Heparin Anti-Xa Level ABG pH ABG pO2 ABG HCO3 ABG O2 Saturation ABG Base Excess ABG Hemoglobin Oxyhemoglobin Sodium Potassium Chloride Carbon Dioxide BUN Creatinine Glucose POC Glucose 132 H 129 H 128 H Hemoglobin A1c Lactic Acid Calcium Phosphorus Magnesium Ferritin AST ALT Alkaline Phosphatase Lactate Dehydrogenase Troponin T C-Reactive Protein Total Protein Albumin LDL Cholesterol Direct Urine Creatinine Urine Total Protein Salicylates Acetaminophen Crossmatch 11/27/21 11/27/21 11/28/21 16:44 21:35 07:54 WBC RBC Hgb Hct MCH RDW Plt Count Lymph % (Auto) [place] % (Auto) Lymph # (Auto) [place] # (Auto) Seg Neutrophils % Seg Neuts % (Manual) Lymphocytes % (Manual) Monocytes % (Manual) Nucleated RBC % Seg Neutrophils # Seg Neutrophils # Man Monocytes # (Manual) Eosinophils # (Manual) Basophils # (Manual) PT INR APTT D-Dimer Heparin Anti-Xa Level ABG pH ABG pO2 ABG HCO3 ABG O2 Saturation ABG Base Excess ABG Hemoglobin Oxyhemoglobin Sodium Potassium Chloride Carbon Dioxide BUN Creatinine Glucose POC Glucose 126 H 131 H 124 H Hemoglobin A1c Lactic Acid Calcium Phosphorus Magnesium Ferritin AST ALT Alkaline Phosphatase Lactate Dehydrogenase Troponin T C-Reactive Protein Total Protein Albumin LDL Cholesterol Direct Urine Creatinine Urine Total Protein Salicylates Acetaminophen Crossmatch 11/28/21 11/28/21 11/28/21 11:27 11:56 16:34 WBC 12.3 H RBC 3.18 L Hgb 9.2 L Hct 27.8 L MCH RDW 16.1 H Plt Count Lymph % (Auto) 10.9 L [place] % (Auto) 13.7 H Lymph # (Auto) [place] # (Auto) 1.7 H Seg Neutrophils % 72.2 H Seg Neuts % (Manual) Lymphocytes % (Manual) Monocytes % (Manual) Nucleated RBC % Seg Neutrophils # 8.9 H Seg Neutrophils # Man Monocytes # (Manual) Eosinophils # (Manual) Basophils # (Manual) PT INR APTT D-Dimer Heparin Anti-Xa Level ABG pH ABG pO2 ABG HCO3 ABG O2 Saturation ABG Base Excess ABG Hemoglobin Oxyhemoglobin Sodium Potassium Chloride Carbon Dioxide BUN Creatinine Glucose POC Glucose 131 H 123 H Hemoglobin A1c Lactic Acid Calcium Phosphorus Magnesium Ferritin AST ALT Alkaline Phosphatase Lactate Dehydrogenase Troponin T C-Reactive Protein Total Protein Albumin LDL Cholesterol Direct Urine Creatinine Urine Total Protein Salicylates Acetaminophen Crossmatch 11/28/21 11/28/21 11/29/21 19:35 21:32 07:33 WBC RBC Hgb Hct MCH RDW Plt Count Lymph % (Auto) [place] % (Auto) Lymph # (Auto) [place] # (Auto) Seg Neutrophils % Seg Neuts % (Manual) Lymphocytes % (Manual) Monocytes % (Manual) Nucleated RBC % Seg Neutrophils # Seg Neutrophils # Man Monocytes # (Manual) Eosinophils # (Manual) Basophils # (Manual) PT INR APTT D-Dimer Heparin Anti-Xa Level 0.12 L ABG pH ABG pO2 ABG HCO3 ABG O2 Saturation ABG Base Excess ABG Hemoglobin Oxyhemoglobin Sodium Potassium Chloride Carbon Dioxide BUN Creatinine Glucose POC Glucose 110 H 108 H Hemoglobin A1c Lactic Acid Calcium Phosphorus Magnesium Ferritin AST ALT Alkaline Phosphatase Lactate Dehydrogenase Troponin T C-Reactive Protein Total Protein Albumin LDL Cholesterol Direct Urine Creatinine Urine Total Protein Salicylates Acetaminophen Crossmatch 11/29/21 11/29/21 11/29/21 11:29 13:51 15:25 WBC 13.0 H RBC 3.41 L Hgb 9.5 L Hct 29.9 L MCH RDW 16.2 H Plt Count Lymph % (Auto) 11.1 L [place] % (Auto) 15.5 H Lymph # (Auto) [place] # (Auto) 2.0 H Seg Neutrophils % 71.8 H Seg Neuts % (Manual) Lymphocytes % (Manual) Monocytes % (Manual) Nucleated RBC % Seg Neutrophils # 9.3 H Seg Neutrophils # Man Monocytes # (Manual) Eosinophils # (Manual) Basophils # (Manual) PT INR APTT D-Dimer Heparin Anti-Xa Level ABG pH ABG pO2 ABG HCO3 ABG O2 Saturation ABG Base Excess ABG Hemoglobin Oxyhemoglobin Sodium Potassium Chloride Carbon Dioxide BUN Creatinine Glucose POC Glucose 136 H 123 H Hemoglobin A1c Lactic Acid Calcium Phosphorus Magnesium Ferritin AST ALT Alkaline Phosphatase Lactate Dehydrogenase Troponin T C-Reactive Protein Total Protein Albumin LDL Cholesterol Direct Urine Creatinine Urine Total Protein Salicylates Acetaminophen Crossmatch 11/29/21 11/29/21 11/29/21 18:50 18:50 20:16 WBC RBC Hgb Hct MCH RDW Plt Count Lymph % (Auto) [place] % (Auto) Lymph # (Auto) [place] # (Auto) Seg Neutrophils % Seg Neuts % (Manual) Lymphocytes % (Manual) Monocytes % (Manual) Nucleated RBC % Seg Neutrophils # Seg Neutrophils # Man Monocytes # (Manual) Eosinophils # (Manual) Basophils # (Manual) PT INR APTT D-Dimer Heparin Anti-Xa Level 0.21 L ABG pH ABG pO2 ABG HCO3 ABG O2 Saturation ABG Base Excess ABG Hemoglobin Oxyhemoglobin Sodium 126 L Potassium Chloride 86.3 L Carbon Dioxide BUN 38 H Creatinine 3.6 H Glucose 153 H POC Glucose 166 H Hemoglobin A1c Lactic Acid Calcium Phosphorus Magnesium Ferritin AST ALT Alkaline Phosphatase Lactate Dehydrogenase Troponin T C-Reactive Protein Total Protein Albumin LDL Cholesterol Direct Urine Creatinine Urine Total Protein Salicylates Acetaminophen Crossmatch 11/30/21 11/30/21 11/30/21 05:14 07:35 11:15 WBC RBC Hgb 8.7 L Hct 26.8 L MCH RDW Plt Count Lymph % (Auto) [place] % (Auto) Lymph # (Auto) [place] # (Auto) Seg Neutrophils % Seg Neuts % (Manual) Lymphocytes % (Manual) Monocytes % (Manual) Nucleated RBC % Seg Neutrophils # Seg Neutrophils # Man Monocytes # (Manual) Eosinophils # (Manual) Basophils # (Manual) PT INR APTT D-Dimer Heparin Anti-Xa Level ABG pH ABG pO2 ABG HCO3 ABG O2 Saturation ABG Base Excess ABG Hemoglobin Oxyhemoglobin Sodium Potassium Chloride Carbon Dioxide BUN Creatinine Glucose POC Glucose 114 H 119 H Hemoglobin A1c Lactic Acid Calcium Phosphorus Magnesium Ferritin AST ALT Alkaline Phosphatase Lactate Dehydrogenase Troponin T C-Reactive Protein Total Protein Albumin LDL Cholesterol Direct Urine Creatinine Urine Total Protein Salicylates Acetaminophen Crossmatch 11/30/21 11/30/21 11/30/21 15:26 17:10 18:51 WBC RBC Hgb Hct MCH RDW Plt Count Lymph % (Auto) [place] % (Auto) Lymph # (Auto) [place] # (Auto) Seg Neutrophils % Seg Neuts % (Manual) Lymphocytes % (Manual) Monocytes % (Manual) Nucleated RBC % Seg Neutrophils # Seg Neutrophils # Man Monocytes # (Manual) Eosinophils # (Manual) Basophils # (Manual) PT INR APTT D-Dimer Heparin Anti-Xa Level 0.10 L ABG pH ABG pO2 ABG HCO3 ABG O2 Saturation ABG Base Excess ABG Hemoglobin Oxyhemoglobin Sodium 126 L Potassium Chloride 86.5 L Carbon Dioxide BUN 42 H Creatinine 4.0 H Glucose 155 H POC Glucose 157 H Hemoglobin A1c Lactic Acid Calcium 8.0 L Phosphorus Magnesium Ferritin AST ALT Alkaline Phosphatase Lactate Dehydrogenase Troponin T C-Reactive Protein Total Protein Albumin LDL Cholesterol Direct Urine Creatinine Urine Total Protein Salicylates Acetaminophen Crossmatch 11/30/21 12/01/21 12/01/21 20:04 00:39 09:38 WBC 25.2 H RBC 3.06 L Hgb 8.5 L Hct 26.8 L MCH RDW 16.1 H Plt Count Lymph % (Auto) [place] % (Auto) Lymph # (Auto) [place] # (Auto) Seg Neutrophils % Seg Neuts % (Manual) 80.0 H Lymphocytes % (Manual) 9.0 L Monocytes % (Manual) Nucleated RBC % Seg Neutrophils # Seg Neutrophils # Man 20.2 H Monocytes # (Manual) 1.3 H Eosinophils # (Manual) Basophils # (Manual) PT INR APTT D-Dimer Heparin Anti-Xa Level 0.18 L ABG pH ABG pO2 ABG HCO3 ABG O2 Saturation ABG Base Excess ABG Hemoglobin Oxyhemoglobin Sodium Potassium Chloride Carbon Dioxide BUN Creatinine Glucose POC Glucose 115 H Hemoglobin A1c Lactic Acid Calcium Phosphorus Magnesium Ferritin AST ALT Alkaline Phosphatase Lactate Dehydrogenase Troponin T C-Reactive Protein Total Protein Albumin LDL Cholesterol Direct Urine Creatinine Urine Total Protein Salicylates Acetaminophen Crossmatch 12/01/21 12/01/21 12/02/21 09:38 11:35 03:22 WBC 23.3 H RBC 2.61 L Hgb 7.5 L Hct 22.8 L MCH RDW 16.1 H Plt Count Lymph % (Auto) [place] % (Auto) Lymph # (Auto) [place] # (Auto) Seg Neutrophils % Seg Neuts % (Manual) 77.0 H Lymphocytes % (Manual) 7.0 L Monocytes % (Manual) 14.0 H Nucleated RBC % Seg Neutrophils # Seg Neutrophils # Man 17.9 H Monocytes # (Manual) 3.3 H Eosinophils # (Manual) Basophils # (Manual) 0.2 H PT INR APTT D-Dimer Heparin Anti-Xa Level ABG pH ABG pO2 ABG HCO3 ABG O2 Saturation ABG Base Excess ABG Hemoglobin Oxyhemoglobin Sodium 127 L Potassium 5.1 H Chloride 87.9 L Carbon Dioxide BUN 49 H Creatinine 4.9 H Glucose 134 H POC Glucose 109 H Hemoglobin A1c Lactic Acid Calcium 7.9 L Phosphorus Magnesium Ferritin AST ALT Alkaline Phosphatase Lactate Dehydrogenase Troponin T C-Reactive Protein Total Protein Albumin LDL Cholesterol Direct Urine Creatinine Urine Total Protein Salicylates Acetaminophen Crossmatch 12/02/21 12/02/21 12/02/21 03:22 03:22 15:40 WBC RBC Hgb Hct MCH RDW Plt Count Lymph % (Auto) [place] % (Auto) Lymph # (Auto) [place] # (Auto) Seg Neutrophils % Seg Neuts % (Manual) Lymphocytes % (Manual) Monocytes % (Manual) Nucleated RBC % Seg Neutrophils # Seg Neutrophils # Man Monocytes # (Manual) Eosinophils # (Manual) Basophils # (Manual) PT INR APTT D-Dimer Heparin Anti-Xa Level 0.15 L < 0.10 L ABG pH ABG pO2 ABG HCO3 ABG O2 Saturation ABG Base Excess ABG Hemoglobin Oxyhemoglobin Sodium 129 L Potassium Chloride 91.7 L Carbon Dioxide BUN 42 H Creatinine 4.4 H Glucose POC Glucose Hemoglobin A1c Lactic Acid Calcium 8.0 L Phosphorus 5.20 H Magnesium Ferritin AST ALT Alkaline Phosphatase Lactate Dehydrogenase Troponin T C-Reactive Protein Total Protein Albumin LDL Cholesterol Direct Urine Creatinine Urine Total Protein Salicylates Acetaminophen Crossmatch 12/02/21 12/02/21 12/03/21 17:45 21:03 05:24 WBC 22.3 H RBC 2.69 L Hgb 7.4 L Hct 23.5 L MCH RDW 16.5 H Plt Count Lymph % (Auto) [place] % (Auto) Lymph # (Auto) [place] # (Auto) Seg Neutrophils % Seg Neuts % (Manual) 85.5 H Lymphocytes % (Manual) 6.0 L Monocytes % (Manual) Nucleated RBC % Seg Neutrophils # Seg Neutrophils # Man 19.1 H Monocytes # (Manual) 1.0 H Eosinophils # (Manual) 0.7 H Basophils # (Manual) PT INR APTT D-Dimer Heparin Anti-Xa Level ABG pH ABG pO2 ABG HCO3 ABG O2 Saturation ABG Base Excess ABG Hemoglobin Oxyhemoglobin Sodium Potassium Chloride Carbon Dioxide BUN Creatinine Glucose POC Glucose 122 H 121 H Hemoglobin A1c Lactic Acid Calcium Phosphorus Magnesium Ferritin AST ALT Alkaline Phosphatase Lactate Dehydrogenase Troponin T C-Reactive Protein Total Protein Albumin LDL Cholesterol Direct Urine Creatinine Urine Total Protein Salicylates Acetaminophen Crossmatch 12/03/21 12/03/21 12/03/21 08:00 11:19 15:11 WBC RBC Hgb Hct MCH RDW Plt Count Lymph % (Auto) [place] % (Auto) Lymph # (Auto) [place] # (Auto) Seg Neutrophils % Seg Neuts % (Manual) Lymphocytes % (Manual) Monocytes % (Manual) Nucleated RBC % Seg Neutrophils # Seg Neutrophils # Man Monocytes # (Manual) Eosinophils # (Manual) Basophils # (Manual) PT INR APTT D-Dimer Heparin Anti-Xa Level ABG pH ABG pO2 ABG HCO3 ABG O2 Saturation ABG Base Excess ABG Hemoglobin Oxyhemoglobin Sodium 134 L Potassium Chloride 95.9 L Carbon Dioxide BUN 30 H Creatinine 3.5 H Glucose 110 H POC Glucose 108 H 117 H Hemoglobin A1c Lactic Acid Calcium Phosphorus Magnesium Ferritin AST ALT Alkaline Phosphatase Lactate Dehydrogenase Troponin T C-Reactive Protein Total Protein Albumin LDL Cholesterol Direct Urine Creatinine Urine Total Protein Salicylates Acetaminophen Crossmatch 12/03/21 12/04/21 12/04/21 20:32 06:15 06:15 WBC 18.5 H RBC 2.88 L Hgb 8.0 L Hct 25.6 L MCH RDW 16.4 H Plt Count Lymph % (Auto) Harrison % (Auto) Lymph # (Auto) Harrison # (Auto) Seg Neutrophils % Seg Neuts % (Manual) 74.0 H Lymphocytes % (Manual) 11.0 L Monocytes % (Manual) 9.0 H Nucleated RBC % Seg Neutrophils # Seg Neutrophils # Man 13.7 H Monocytes # (Manual) 1.7 H Eosinophils # (Manual) Basophils # (Manual) PT INR APTT D-Dimer Heparin Anti-Xa Level ABG pH ABG pO2 ABG HCO3 ABG O2 Saturation ABG Base Excess ABG Hemoglobin Oxyhemoglobin Sodium 135 L Potassium Chloride 96.9 L Carbon Dioxide BUN 19 H Creatinine 2.8 H Glucose 102 H POC Glucose 122 H Hemoglobin A1c Lactic Acid Calcium Phosphorus Magnesium Ferritin AST ALT Alkaline Phosphatase Lactate Dehydrogenase Troponin T C-Reactive Protein Total Protein Albumin LDL Cholesterol Direct Urine Creatinine Urine Total Protein Salicylates Acetaminophen Crossmatch 12/04/21 12/04/21 12/04/21 08:14 11:17 15:58 WBC RBC Hgb Hct MCH RDW Plt Count Lymph % (Auto) Harrison % (Auto) Lymph # (Auto) Harrison # (Auto) Seg Neutrophils % Seg Neuts % (Manual) Lymphocytes % (Manual) Monocytes % (Manual) Nucleated RBC % Seg Neutrophils # Seg Neutrophils # Man Monocytes # (Manual) Eosinophils # (Manual) Basophils # (Manual) PT INR APTT D-Dimer Heparin Anti-Xa Level ABG pH ABG pO2 ABG HCO3 ABG O2 Saturation ABG Base Excess ABG Hemoglobin Oxyhemoglobin Sodium Potassium Chloride Carbon Dioxide BUN Creatinine Glucose POC Glucose 106 H 125 H 113 H Hemoglobin A1c Lactic Acid Calcium Phosphorus Magnesium Ferritin AST ALT Alkaline Phosphatase Lactate Dehydrogenase Troponin T C-Reactive Protein Total Protein Albumin LDL Cholesterol Direct Urine Creatinine Urine Total Protein Salicylates Acetaminophen Crossmatch 12/04/21 12/05/21 12/05/21 20:25 05:05 08:15 WBC 19.4 H RBC 2.89 L Hgb 8.1 L Hct 25.6 L MCH RDW 16.3 H Plt Count Lymph % (Auto) Harrison % (Auto) Lymph # (Auto) Harrison # (Auto) Seg Neutrophils % Seg Neuts % (Manual) Lymphocytes % (Manual) 13.0 L Monocytes % (Manual) 13.0 H Nucleated RBC % Seg Neutrophils # Seg Neutrophils # Man 12.4 H Monocytes # (Manual) 2.5 H Eosinophils # (Manual) 0.8 H Basophils # (Manual) PT INR APTT D-Dimer Heparin Anti-Xa Level ABG pH ABG pO2 ABG HCO3 ABG O2 Saturation ABG Base Excess ABG Hemoglobin Oxyhemoglobin Sodium Potassium Chloride Carbon Dioxide BUN Creatinine Glucose POC Glucose 130 H 107 H Hemoglobin A1c Lactic Acid Calcium Phosphorus Magnesium Ferritin AST ALT Alkaline Phosphatase Lactate Dehydrogenase Troponin T C-Reactive Protein Total Protein Albumin LDL Cholesterol Direct Urine Creatinine Urine Total Protein Salicylates Acetaminophen Crossmatch 12/05/21 12/05/21 12/05/21 11:18 16:42 21:14 WBC RBC Hgb Hct MCH RDW Plt Count Lymph % (Auto) Harrison % (Auto) Lymph # (Auto) Harrison # (Auto) Seg Neutrophils % Seg Neuts % (Manual) Lymphocytes % (Manual) Monocytes % (Manual) Nucleated RBC % Seg Neutrophils # Seg Neutrophils # Man Monocytes # (Manual) Eosinophils # (Manual) Basophils # (Manual) PT INR APTT D-Dimer Heparin Anti-Xa Level ABG pH ABG pO2 ABG HCO3 ABG O2 Saturation ABG Base Excess ABG Hemoglobin Oxyhemoglobin Sodium Potassium Chloride Carbon Dioxide BUN Creatinine Glucose POC Glucose 114 H 122 H 119 H Hemoglobin A1c Lactic Acid Calcium Phosphorus Magnesium Ferritin AST ALT Alkaline Phosphatase Lactate Dehydrogenase Troponin T C-Reactive Protein Total Protein Albumin LDL Cholesterol Direct Urine Creatinine Urine Total Protein Salicylates Acetaminophen Crossmatch 12/05/21 12/06/21 12/06/21 23:51 04:36 04:36 WBC RBC Hgb 8.0 L Hct 25.7 L MCH RDW Plt Count Lymph % (Auto) Harrison % (Auto) Lymph # (Auto) Harrison # (Auto) Seg Neutrophils % Seg Neuts % (Manual) Lymphocytes % (Manual) Monocytes % (Manual) Nucleated RBC % Seg Neutrophils # Seg Neutrophils # Man Monocytes # (Manual) Eosinophils # (Manual) Basophils # (Manual) PT INR APTT D-Dimer Heparin Anti-Xa Level 0.71 H ABG pH ABG pO2 ABG HCO3 ABG O2 Saturation ABG Base Excess ABG Hemoglobin Oxyhemoglobin Sodium 132 L Potassium Chloride 92.5 L Carbon Dioxide BUN 35 H Creatinine 4.0 H Glucose POC Glucose Hemoglobin A1c Lactic Acid Calcium Phosphorus Magnesium Ferritin AST ALT Alkaline Phosphatase Lactate Dehydrogenase Troponin T C-Reactive Protein Total Protein Albumin LDL Cholesterol Direct Urine Creatinine Urine Total Protein Salicylates Acetaminophen Crossmatch 12/06/21 12/06/21 07:32 11:12 WBC RBC Hgb Hct MCH RDW Plt Count Lymph % (Auto) Harrison % (Auto) Lymph # (Auto) Harrison # (Auto) Seg Neutrophils % Seg Neuts % (Manual) Lymphocytes % (Manual) Monocytes % (Manual) Nucleated RBC % Seg Neutrophils # Seg Neutrophils # Man Monocytes # (Manual) Eosinophils # (Manual) Basophils # (Manual) PT INR APTT D-Dimer Heparin Anti-Xa Level ABG pH ABG pO2 ABG HCO3 ABG O2 Saturation ABG Base Excess ABG Hemoglobin Oxyhemoglobin Sodium Potassium Chloride Carbon Dioxide BUN Creatinine Glucose POC Glucose 106 H 112 H Hemoglobin A1c Lactic Acid Calcium Phosphorus Magnesium Ferritin AST ALT Alkaline Phosphatase Lactate Dehydrogenase Troponin T C-Reactive Protein Total Protein Albumin LDL Cholesterol Direct Urine Creatinine Urine Total Protein Salicylates Acetaminophen Crossmatch Allied health notes reviewed: nursing
[2021-12-06] MEDS: AMIODARONE 200 MG TAB PO SCH ×2 (15:20→22:36)
[2021-12-07] MEDS: GABAPENTIN 100 MG CAP PO SCH ×3 (06:38→21:28)
[2021-12-07] MEDS: HEPARIN/ 0.45% NACL DRIP 25,000 UNIT/500 ML BAG IV SCH (06:39)
[2021-12-07 06:44] LABS: Calcium 8.6 mg/dL (8.4-10.2)
[2021-12-07] MEDS: INSULIN LISPRO 100 UNIT/ML SUB-Q SCH ×5 (08:30→23:27)
--- NOTE | 2021-12-07 08:50 | Progress Note ---
Assessment and Plan Cultures: 10/29/2021 sputum culture: Usual respiratory giorgio 10/29/2021 urine culture: No growth 10/29/2021 blood culture: No growth 11/01/2021 tracheal aspirate culture: No growth 11/10/2021 tracheal aspirate culture: Usual respiratory giorgio 11/13/2021 blood culture: No growth 11/29/2021 urine culture: Mixed giorgio 11/29/2021 blood culture: 1 out of 4 bottles positive for coag negative staph A/P: 66-year-old female past medical history obesity presented to the hospital after cardiac arrest: #Coagulase negative staph bacteremia: Likely contaminant, 1 of 4 bottles. #Acute leukocytosis: Possibly related to large subacute left-sided retroperitoneal hematoma. CT chest, abdomen and pelvis on 12/01/2021 did not reveal any other infectious etiology. #Retroperitoneal bleed #Acute DVT in the left posterior tibial vein and bilateral peroneal veins #S/P cardiac arrest #SIERRA on HD: Renally dose medications. Recs: -monitor off abx. Follow WBC trend and watch for any fevers Simran Marcelino MD, FACP, [facility] ([facility] O: [phone] F: [phone] C: [phone] Subjective Date of service: 12/07/21 Principal diagnosis: AHRF; Cardiac arrest; R. pneumothorax; pneumonia; AMS; DVT's; SIERRA; Obesity Interval history: No fever. Denies any complaints. She reports she is passing some urine. Objective - Exam Narrative Exam: Physical Exam: Constitutional: Alert, cooperative. No acute distress. Morbid obesity Head, Ears, Nose: Normocephalic, atraumatic. External ears, nose normal Eyes: Conjunctivae/corneas clear. No icterus. No ptosis. Neck: Supple, no meningeal signs Cardiovascular: S1, S2 + Respiratory: AE fair bilaterally GI: Soft, non-tender; bowel sounds normal. No peritoneal signs Musculoskeletal: trace edema. HD cath + Skin: No rash or abscess Hem/Lymphatic: No palpable cervical or supraclavicular nodes. No lymphangitis Psych: Mood ok. Affect normal Neurological: Awake, alert, oriented. No gross abnormality - Constitutional Vitals: Vital Signs Temp Pulse Resp BP Pulse Ox 97.5 F L 119 H 18 124/71 100 12/07/21 07:51 12/07/21 07:51 12/07/21 07:51 12/07/21 07:51 12/07/21 07:51 Temperature -Last 24 Hours Temperature 97.5 F Temperature 97.3 F Temperature 98.9 F Temperature 98.6 F Temperature 98.1 F - Labs CBC & Chem 7: 12/06/21 04:36 12/07/21 06:11 Labs: Abnormal lab results 12/06/21 12/06/21 12/06/21 Range/Units 11:12 15:49 17:13 Sodium (137-145) mmol/L Chloride (98-107) mmol/L BUN (7-17) mg/dL Creatinine (0.6-1.2) mg/dL POC Glucose 112 H 111 H 113 H (70-105) mg/dL 12/06/21 12/07/21 Range/Units 21:31 06:11 Sodium 126 L (137-145) mmol/L Chloride 90.1 L (98-107) mmol/L BUN 43 H (7-17) mg/dL Creatinine 4.2 H (0.6-1.2) mg/dL POC Glucose 112 H (70-105) mg/dL
[2021-12-07] MEDS: MIDODRINE 5 MG TAB PO SCH ×3 (08:51→17:20)
[2021-12-07] MEDS: FUROSEMIDE 40 MG/4 ML INJ IV SCH (09:07)
[2021-12-07] MEDS: SENNOSIDES/DOCUSATE SODIUM 8.6/50 MG TAB PO SCH ×2 (09:08→21:28)
[2021-12-07] MEDS: METOPROLOL TARTRATE 50 MG TAB PO SCH ×3 (09:08→21:28)
[2021-12-07] MEDS: DOCUSATE SODIUM 100 MG CAP PO SCH ×2 (09:09→21:28)
[2021-12-07] MEDS: AMIODARONE 200 MG TAB PO SCH ×2 (09:09→21:28)
[2021-12-07] MEDS: FAMOTIDINE 10 MG TAB PO SCH ×2 (09:09→21:28)
--- NOTE | 2021-12-07 10:19 | Progress Note ---
Assessment and Plan Assessment and plan: 66 YO Female with Obesity was attending [facility] when the patient collapsed and lost consciousness. Witnesses began CPR. EMS was notified and upon arrival the patient was found to be in distress without perfusing cardiac rhythm. Patient initiated on ACLS protocol and subsequently intubated in the field and transported to ED. The patient regained spontaneous circulation during transport. She was found to have acute hypoxemic respiratory failure, septic shock suspected secondary to aspiration pneumonia, metabolic acidosis, toxic metabolic encephalopathy, shock liver, and cardiac arrest with return of perfusing cardiac rhythm after initiation of ACLS protocol. Patient initiated on sepsis protocol as well as pneumonia protocol. Patient admitted to ICU. Patient improved, extubated on 11/11 and transferred to floor on 11/19. s/p cardiac arrest, collapse at [facility], HFrEF, shock/hypotension resolved Atrial fibrillation/atrial flutter -Cardiac arrest and collapse at [facility] with ROSC -Cardiology consulted, appreciate recommendations - S/p Cardizem gtt- d/c due to low EF; now on PO Amio -s/p vasopressor support with levophed -Echocardiogram shows left ventricular systolic function severely decreased, LVEF 25 to 30%, no pericardial effusion -proBNP 5622 -Continue Lasix 20 mg twice daily, BB, spironolactone, losartan -No significant volume overload clinically Acute hypoxic respiratory failure, right pneumothorax, Angioedema (resolved), pulmonary edema -[facility] consulted, appreciate recommendations -Intubated on 10/29 and extubated on 11/11 -Bipap q HS and prn, at high risk for KOLBY with morbid obesity -NC during day -s/p right chest tube for pneumothorax -s/p steroids for angioedema -On Lasix for pulmonary edema. Transaminitis likely shocked liver - resolved Acute kidney injury likely secondary to vasomotor nephropathy, hypernatremia -Nephrology consulted, appreciate recommendations -Krishna replaced 11/05 urinary retention -FeNa 0.05 indicating pre-renal -SIERRA and hyponatremia resolved. Creatinine 1.0 on Lasix IV Shock cardiogenicsuspected sepsis -Fever was as high as 102 with a leukocytosis Blood, urine and sputum cultures negative -COVID-19 PCR negative -S/p empiric antibiotic therapy for possible pneumonia with Rocephin and azithromycin () -S/p Levophed gtt for hypotension -Fever and leukocytosis resolved -Monitor WBC and temperature curve Acute Metabolic encephalopathy, agitation/anxiety -Etiology likely from a cardiac arrest, shock and cerebral hypoperfusion CT head no acute focal parenchymal lesion in the brain -Neurology consulted, appreciate recommendations -EEG and MRI noted, Neuro recommend to cut down on sedation as possible Mental status significantly improved, currently fairly alert and oriented. Answers appropriately. Acute DVT in the left posterior tibial vein and bilateral peroneal veins, Anemia, retroperitoneal bleed -D-dimer greater than 10,000 -CTA chest with no evidence of PE -Bilateral lower extremity ultrasound positive for DVT -Heparin gtt on hold d/t anemia, received PRBC x4 -vasuclar surgery consulted, appreciate recommendations -recommended multiphasic CT angio of the abdomen and pelvis with and without contrast if H/H drops and did not recommend IVC filter at this time as the DVTs are infrapopliteal and recommends a follow-up DVT study weekly for 2 weeks. Repeat venous duplex ultrasound on 11/21 showed progression of left peroneal DVT extending into popliteal vein. Vascular surgery completed IVC filter placement on 11/22. -Trend CBC -SCDs to BLE while in bed -Transfuse hemoglobin less than 7 -Monitor for signs of bleeding -Hemoglobin stable, 8.6 Hypertension, not able be controlled Increase losartan 200 mg daily and add hydralazine as needed. Hyperglycemia ,resolved) -Avoid hypoglycemia -Hbg A1C 6.7 -SSI and lantus q hs (titrate as needed) -Accu-Cheks q. 6 Morbid obesity High risk for KOLBY On nightly BiPAP Deconditioning PT/OT Hospital Course to Date: 10/30: Intubated and sedated, on fentanyl gtt. Open eyes spontaneously but does not follow any commands. On vasopressors, titrate as tolerated for MAP above 65. Patient febrile overnight, continue empiric IV Abx, culture data and COVID PCR pending. Patient is also s/p CT placement due to spontaneous pneumothorax. 2D echo is pending and Cardiology is consulted. 10/31: Patient remains intubated and following commands. Levophed drip stopped and potassium repleted. Patient started on tube feeding. Remains in soft bilateral restraints. 11/01: RN noted ST changes on BSM and 12 lead EKG obtained which showed ST. Given Ativan 1mg for agitation as she is maxed on fentanyl drip and IV push fentanyl did not seem to help. Patient was started on CPAP this morning by RT but remained on fentanyl drip and was having periods of apnea. Plan was to retry CPAP again in the p.m. with sedation off. 11/02: Rate increased r/t hypercapnea on ABG, sedation reduced. Given kionex for hyperkalemia and was started on levophed overnight for hypotension. 11/03: Overnight patient had tachycardia and was given Cardizem and Lopressor. Lopressor was repeated in the a.m. due to tachycardia. Patient will be started on amiodarone with a bolus per cardiology. Patient started on normal saline per liter per [facility] and steroids for angioedema. Noted to have bright red blood when suctioned from oh ETT. Remains on heparin drip as H/H is stable for now. Will reevaluate. Fentanyl drip was restarted last night due to agitation. Dr. Flores updated family today 11/04: Patient was sedated on fentanyl however off sedation is able to follow commands, a.m. labs completed in the p.m. and show hyperkalemia with increased renal function studies. Nephrology, neurology consulted by [facility]. Given Kayexalate, insulin and D50 for hyperkalemia. Patient remains on amiodarone. 11/05: Patient needed to be sedated on fentanyl again to today. overnight krihsna was replaced. Hyperkalemia->given kionex 60 for 5.6. Repeat K 6-> Dr. Grant informed and requested bumex, kionex, insulin, d50, calcium gluconate and sodium bicarb with repeat BMP in 2 hours which were placed. HR remains elevated. 11/06: Patient remained in atrial fibrillation/atrial flutter with heart rate in the 150s despite being on amnio drip and was given amnio bolus, Cardizem bolus and started on Cardizem drip by cardiology. Patient is on beta-blockers p.o. scheduled and to feedings changed to Nepro. Kayexalate was given in the morning by nephrology due to hyperkalemia. 11/07: Patient is only responsive to mild stimuli, precedex added in an attempt to wean off fentanyl gtt to better assess her mental status. Neurology also on consult, pending MRI and EEG. Patient remains in Aflutter this am, HR in the 80 to 90s, still on amiodarone and heparin gtt. 11/08: Fentanyl gtt is off, only on precedex gtt. Patient is still not following any commands. MRI brain and EEG completed. Neuro recommendations noted, sedatives agents decreased. FWF added for hypernatremia and low K repleted, repe at labs ordered. Placed a call and spoke with patient's daughter, Eva Brown . She was updated on patient's conditions and status. All questions and concerns were voiced at this time. 11/09: Patient is awake and alert this am, following commands and appropriate. Remains on precedex gtt, plan for possible PST today. Hypertensive overnight, meds adjusted by Cardio and PRN Hydralazine added for SBP greater than 160. CT dislodged overnight, CXR is stable with no significant change. F/U CXR in the am. Patient's daughter, Eva Brown, visited with patient. She was updated on patient's status and goal of care for today. All questions and concerns were voiced at this time. 11/10: Mentation remains intact, still on precedex gtt. This am CXR noted still with fluid overload s/p X1 dose of IV lasix, good response from IV lasix overnight. Hypernatremia improved, D5W d/dayday. Still with persistent hypokalemia, continue electrolytes replacement and frequent lab check. Daily IV lasix and aldactone added by Cardio. Patient is also with persistent low grade fevers overnight, leukocytosis with mild improvement this am. Will get a repeat sputum culture, hold off on IV abx for now. Consider ID consult if fevers and leukocytosis persist. Patient tolerated PST X4hrs yesterday. PST again today, plan to wean to extubate if tolerated. 11/11: IAM overnight. Off precedex gtt and tolerated PST this am. Plan to wean to extubate today. Additional IV lasix given, plan to keep patient at a net negative balance for better lung compliance. F/U CXR in the am. K improved this am, repeat BMP this afternoon since diuresing. Remains with low grade fevers, leukocytosis downtrending, will continue to monitor. Speech/PT/OT ordered 11/12: S/p extubation, now stable on 3L NC. This am CXR noted with no significant changes, lasix changed to IV X4days BID. Drop in H&H this am, and Lt. flank ecchymosis noted. Heparin gtt on hold for now and orders placed for 1 unit of PRBCs and Ct Abd/Pelvis w/o con to r/o retroperitoneal bleed. Pending speech swallow eval, keep patient NPO for now. Patient is stable for IMCU status 11/13: Patient with increased WOB and tachycardia this am, patient was placed on Bipap and precedex gtt was resumed. CXR with mild improvement. CT Abd/Pelvis also reviewed large hematomas noted at the Lt. retroperitoneum and left posterior lateral abdominal wall. Heparin gtt is already on hold, patient is hemodynamically stable. Vascular Surgery consulted for possible IVC filter eval. Patient s/p 2units of PRBCs, will continue to trend H&H and transfuse if hbg is less than 7. Worsening renal function this am, IF diuretic on hold for now. Patient is also febrile with spike in wbcs most likely reactive to bleed, will panculture and hold off on IV Abx for now. Patient also failed speech bedside swallow eval yesterday, NGT in placed plan to resume enteral nutrition 11/14: Patient had bilateral lower extremity Doppler ultrasound and vascular surgery has recommended multiphasic CT angio of the abdomen and pelvis with and without contrast if H/H drops and does not recommend IVC filter at this time as the DVTs are infrapopliteal and recommends a DVT study weekly for 2 weeks. FWF 250 q4 ml per nephro. Started on as needed Xanax and p.o. amiodarone. She did not pass her ST evaluation today. Will be transferred to [facility]. 11/15: Resting comfortably on encounter. Speech cleared for pureed diet. Remains on 3l satting 98 % on bedside encounter. Does not appear to be in respiratory distress. Will continue to hold AC, No ivc filter planned at this time. qweekly doppler to monitor for migration of DVT per vascular. If demonstrated, will consider IVC filter. CBC ordered for tomorrow, will continue monitoring in light of retroperitoneal hematoma. FWF increased by nephrology to 350cc q4hr d/t hypernatremia. UOP/renal function both improved. D/w cardiology, will continue amiodorone an additional 24hrs. Plan to change dosing of metoprolol. Continue to wean off of precedex. Continue xanax scheduled for anxiety. physical therapy recs noted, fernanda / ltac will discuss with CM. Continue IMCU monitoring. 11/16: Pulmonary congestion this AM. CXR ordered. Lasix 40 mg IV x 1 order this AM. Will monitor for 24 hrs. potential downgrade to medical floor tomorrow. 11/17: Persisting pulmonary congestion, was on bipap overnight into this AM. Will order additional lasix 40 mg IV x 2. CXR ordered for AM. Possible downgrade to floor tomorrow. Anticipate d/c sunday. 11/18: Patient seen and examined, continue weaning, will continue diuresis BID, discussed with daughter. 11/19: Patient seen and examined this morning doing well no acute distress noted. Lasix was increased to twice daily to 20 mg IV. Clinically improving. Patient will be transferred to telemetry today can be switched to Lasix p.o. twice daily in a.m. She has her weekly Doppler of lower extremity tomorrow vascular is following for this. She was taken off anticoagulation secondary to retroperitoneal bleed., The anticoagulation was started initially for atrial fibrillation and an infrapopliteal DVT. During her hospital stay she had a prolonged ventilator management and was successfully weaned off. She also received a total of 4 units of packed red blood cell. Hemoglobin has remained stable. Anticipate discharge in next 48 hours if continues to clinically stay stable. : Transferred from ICU on 11/19. Progressive improving. Currently awake and oriented. O2 weaned to 4 L. Hemodynamically stable. BP control being optimized. MiraLAX for constipation. Hemoglobin stable on the heparin infusion, being monitored closely with history of retroperitoneal bleed. 11/21: Patient remains mostly bedridden. She is awake and oriented on 2 L of O2. Repeat ultrasound showed extension of left peroneal DVT into popliteal vein. Heparin was discontinued for significant retroperitoneal bleed and off anticoagulation since. Vascular surgery plan for placement of IVC filter tomorrow. Patient is chest pains, palpitations, hemoptysis. She has some cough. Left lower extremity pain likely from DVT better today. Discussed with the patient, nursing staff and vascular surgery. 11/22: The infrapopliteal vein thrombosis has propagated to the left popliteal vein. Vascular surgery to perform IVC filter placement today. 11/23: Vascular surgery placed IVC filter yesterday. Continue metoprolol 100 mg p.o. twice daily, Aldactone 25 mg p.o. daily and losartan 25 mg p.o. daily. Patient still requiring BiPAP (IPAP18, EPAP8) with FiO2 of 30%. Continue to wean oxygen per pulmonary recommendations. Nurse reports patient is having vaginal bleeding. We will check serial CBC and pelvic ultrasound 11/24: I discussed with cardiology yesterday the need for a LifeVest. LifeVest is ordered and pending. Patient is s/p IVC filter placement. Continue metoprolol 100 mg p.o. twice daily, Aldactone 25 mg p.o. daily and losartan 25 mg p.o. da amy. Patient still requiring BiPAP (IPAP18, EPAP8) with FiO2 of 30%. Continue to wean oxygen per pulmonary recommendations. No further reports of vaginal bleeding. Pelvic ultrasound negative 11/25: Awaiting for LifeVest. Patient is s/p IVC filter placement. Continue metoprolol 100 mg p.o. twice daily, Aldactone 25 mg p.o. daily and losartan 25 mg p.o. daily. Patient still requiring BiPAP (IPAP18, EPAP8) with FiO2 of 30%. Continue to wean oxygen per pulmonary recommendations. 11/26: Physical therapy recommends subacute rehab. Still awaiting LifeVest. Patient is s/p IVC filter placement. Continue metoprolol 100 mg p.o. twice daily, Aldactone 25 mg p.o. daily and losartan 25 mg p.o. daily. Patient still requiring BiPAP (IPAP18, EPAP8) with FiO2 of 30% at night. Continue to wean oxygen per pulmonary recommendations. Patient currently with 2 L O2. 11/27: Physical therapy recommends subacute rehab. Patient has a LifeVest. Patient's left lower extremity pain likely related to DVT. Continue pain control. Continue metoprolol 100 mg p.o. twice daily, Aldactone 25 mg p.o. daily and losartan 25 mg p.o. daily. Patient still requiring BiPAP (IPAP18, EPAP8) with FiO2 of 30% at night. 11/28: Physical therapy recommends subacute rehab. Patient has a LifeVest. Patient continues to complain of left lower extremity pain which makes it very difficult for ambulation. Continue Percocet for pain control. Add neurontin for possible neuropathy. Etiology is likely secondary to DVT. Continue metoprolol 100 mg p.o. twice daily, Aldactone 25 mg p.o. daily and losartan 25 mg p.o. daily. Patient still requiring BiPAP (IPAP18, EPAP8) with FiO2 of 30% at night. Repeated Doppler US of LLE and will ask vascular surgery to revisit. 11/29; worsening lower extremity DVTs, vascular following, on heparin drip 11/30; low-grade fever, leukocytosis, shortness of breath, chest x-ray possible left-sided pneumonia/possible healthcare associated pneumonia Blood cultures already sent, empiric antibiotic cefepime[renal dose confirmed with pharmacist] ID consult if needed 12/01; gram-positive bacteremia preliminary, add vancomycin 1 dose, repeat cultures, consult ID Worsening renal function, nephrology initiated hemodialysis today, patient is critically ill, very poor prognosis, with multiple comorbidities And critical issues. [employer] recommendations noted and appreciated 12/02; Gram positive bacteremia/possible HCAP and sepsis, on cefepime and 1 dose Vanco. Nephrology initiated hemodialysis, ID consult. Patient is hypotensive, pulmonary critical recommended transfer to ICU and start vasopressors for close observation overnight. Dr. Padron discussed with patient's daughter over patient's telephone and discussed in detail patient's condition, new developments sepsis, renal failure on hemodialysis anticoagulation for DVT and severe cardiomyopathy, also discussed poor prognosis, and the plans of transferring the patient to ICU for close observation. Many questions, and answered all of them. dr. Padron also discussed with granddaughter at the bedside and patient was moved to ICU, She had numerous questions answered all of them and discussed the current co ndition prognosis and treatment plan. She verbalized understanding 12/03: Patient was transferred to ICU yesterday evening for hypotension however she did not need to be started on any vasopressin therapy. Patient is on p.o. midodrine and all her antihypertensives have been held. She also received albumin bolus. Patient will be transferred to the floor today. Still complains of bilateral lower extremity pain. Patient is on cefepime and she is scheduled for dialysis today. 12/04: Some complaint of leg pain. Percocet given for pain control. Patient is very deconditioned, will need aggressive PT. Will work on d/c planning with cm. 12/05: Patient does not appear to be in distress this AM. tachycardic hr on encounter and overnight, was given diltiazem by land mobile radio technician. Cardiology initiated metoprolol and amiodorone on patient this morning. She denies any pain except for discomfort in left lower extremity. Controlled with percocet. She also states that she does not have any urine output and has been constipated. Will order bowel regimen. Discharge needs discussed with CM which include Lifevest, BIPAP for nightly use, and possible set up for dialysis. She was visiting on a visa to the from [place] however is technically a citizen of [place] which makes placement a continued challenge. 12/06: Case management reports patient will need LifeVest, walker, CPAP and arrangements for outpatient hemodialysis. However, patient is uninsured. I discussed with the daughter Eva plans for home hospice. Eva reports that she is willing to have hospice to obtain additional resources but is not wanting palliative care/comfort measures. 12/07: Awaiting LifeVest and outpatient HD arrangements. I d/w CM discharge planning. Pt still with heparin drip but amiodarone changed to p.o. 200mg BID. Cont. Metoprolol 50mg BID. Hold LAYO and ARB for renal fxn. Patient for outpatient ischemic evaluation per Cardiology. Leukocytosis likely related to retroperitoneal hematoma. ID wants to monitor off abx. History Interval history: No new issues overnight. Hospitalist Physical - Constitutional Vitals: Temp Pulse Resp BP Pulse Ox 97.5 F L 119 H 18 124/71 99 12/07/21 07:51 12/07/21 09:08 12/07/21 07:51 12/07/21 09:08 12/07/21 09:36 General appearance: Present: no acute distress, well-nourished, obese (Morbidly obese), other - EENT Eyes: Present: PERRL, EOM intact ENT: hearing intact, clear oral mucosa, dentition normal - Neck Neck: Present: supple, normal ROM - Respiratory Respiratory effort: normal Respiratory: bilateral: CTA - Cardiovascular Rhythm: regular Heart Sounds: Present: S1 & S2. Absent: gallop, rub - Extremities Extremities: no ischemia, No edema, Full ROM - Abdominal General gastrointestinal: soft, non-tender, non-distended, normal bowel sounds - Integumentary Integumentary: Present: clear, warm, dry - Neurologic Neurologic: CNII-XII intact, moves all extremities HEART Score - HEART Score Troponin: Troponin T 1.150 ng/mL (0.00-0.029) H* D 10/29/21 22:34 Results - Labs CBC & Chem 7: 12/06/21 04:36 12/07/21 06:11 Labs: Laboratory Last Values WBC 19.4 K/mm3 (4.5-11.0) H 12/05/21 05:05 RBC 2.89 M/mm3 (3.65-5.03) L 12/05/21 05:05 Hgb 8.0 gm/dl (10.1-14.3) L 12/06/21 04:36 Hct 25.7 % (30.3-42.9) L 12/06/21 04:36 MCV 89 fl (79-97) 12/05/21 05:05 MCH 28 pg (28-32) 12/05/21 05:05 MCHC 32 % (30-34) 12/05/21 05:05 RDW 16.3 % (13.2-15.2) H 12/05/21 05:05 Plt Count 313 K/mm3 (140-440) 12/05/21 05:05 Lymph % (Auto) 11.1 % (13.4-35.0) L 11/29/21 13:51 Falls % (Auto) 15.5 % (0.0-7.3) H 11/29/21 13:51 Eos % (Auto) 1.0 % (0.0-4.3) 11/29/21 13:51 Baso % (Auto) 0.6 % (0.0-1.8) 11/29/21 13:51 Lymph # (Auto) 1.4 K/mm3 (1.2-5.4) 11/29/21 13:51 Falls # (Auto) 2.0 K/mm3 (0.0-0.8) H 11/29/21 13:51 Eos # (Auto) 0.1 K/mm3 (0.0-0.4) 11/29/21 13:51 Baso # (Auto) 0.1 K/mm3 (0.0-0.1) 11/29/21 13:51 Add Manual Diff Complete 12/05/21 05:05 Total Counted 100 12/05/21 05:05 Seg Neutrophils % 71.8 % (40.0-70.0) H 11/29/21 13:51 Seg Neuts % (Manual) 64.0 % (40.0-70.0) 12/05/21 05:05 Band Neutrophils % 2.0 % 12/05/21 05:05 Lymphocytes % (Manual) 13.0 % (13.4-35.0) L 12/05/21 05:05 Reactive Lymphs % (Man) 0 % 12/05/21 05:05 Monocytes % (Manual) 13.0 % (0.0-7.3) H 12/05/21 05:05 Eosinophils % (Manual) 4.0 % (0.0-4.3) 12/05/21 05:05 Basophils % (Manual) 0 % (0.0-1.8) 12/05/21 05:05 Metamyelocytes % 3.0 % 12/05/21 05:05 Myelocytes % 1.0 % 12/05/21 05:05 Promyelocytes % 0 % 12/05/21 05:05 Blast Cells % 0 % 12/05/21 05:05 Nucleated RBC % Not Reportable 12/05/21 05:05 Seg Neutrophils # 9.3 K/mm3 (1.8-7.7) H 11/29/21 13:51 Seg Neutrophils # Man 12.4 K/mm3 (1.8-7.7) H 12/05/21 05:05 Band Neutrophils # 0.4 K/mm3 12/05/21 05:05 Lymphocytes # (Manual) 2.5 K/mm3 (1.2-5.4) 12/05/21 05:05 Abs React Lymphs (Man) 0.0 K/mm3 12/05/21 05:05 Monocytes # (Manual) 2.5 K/mm3 (0.0-0.8) H 12/05/21 05:05 Eosinophils # (Manual) 0.8 K/mm3 (0.0-0.4) H 12/05/21 05:05 Basophils # (Manual) 0.0 K/mm3 (0.0-0.1) 12/05/21 05:05 Metamyelocytes # 0.6 K/mm3 12/05/21 05:05 Myelocytes # 0.2 K/mm3 12/05/21 05:05 Promyelocytes # 0.0 K/mm3 12/05/21 05:05 Blast Cells # 0.0 K/mm3 12/05/21 05:05 WBC Morphology Not Reportable 12/05/21 05:05 Hypersegmented Neuts Not Reportable 12/05/21 05:05 Hyposegmented Neuts Not Reportable 12/05/21 05:05 Hypogranular Neuts Not Reportable 12/05/21 05:05 Smudge Cells Not Reportable 12/05/21 05:05 Toxic Granulation Not Reportable 12/05/21 05:05 Toxic Vacuolation Not Reportable 12/05/21 05:05 Dohle Bodies Not Reportable 12/05/21 05:05 Pelger-Huet Anomaly Not Reportable 12/05/21 05:05 Manny Rods Not Reportable 12/05/21 05:05 Platelet Estimate Consistent w auto 12/05/21 05:05 Clumped Platelets Not Reportable 12/05/21 05:05 Plt Clumps, EDTA Not Reportable 12/05/21 05:05 Large Platelets Not Reportable 12/05/21 05:05 Giant Platelets Not Reportable 12/05/21 05:05 Platelet Satelliting Not Reportable 12/05/21 05:05 Plt Morphology Comment Not Reportable 12/05/21 05:05 RBC Morphology Not Reportable 12/05/21 05:05 Dimorphic RBCs Not Reportable 12/05/21 05:05 Polychromasia Not Reportable 12/05/21 05:05 Hypochromasia 1+ 12/05/21 05:05 Poikilocytosis Not Reportable 12/05/21 05:05 Anisocytosis 1+ 12/05/21 05:05 Microcytosis Not Reportable 12/05/21 05:05 Macrocytosis Not Reportable 12/05/21 05:05 Spherocytes Not Reportable 12/05/21 05:05 Pappenheimer Bodies Not Reportable 12/05/21 05:05 Sickle Cells Not Reportable 12/05/21 05:05 Target Cells Not Reportable 12/05/21 05:05 Tear Drop Cells Not Reportable 12/05/21 05:05 Ovalocytes Not Reportable 12/05/21 05:05 Helmet Cells Not Reportable 12/05/21 05:05 [place] Bodies Not Reportable 12/05/21 05:05 [place] Rings Not Reportable 12/05/21 05:05 [place] Cells Not Reportable 12/05/21 05:05 Bite Cells Not Reportable 12/05/21 05:05 Crenated Cell Not Reportable 12/05/21 05:05 Elliptocytes Not Reportable 12/05/21 05:05 Acanthocytes (Spur) Not Reportable 12/05/21 05:05 Rouleaux Not Reportable 12/05/21 05:05 Hemoglobin C Crystals Not Reportable 12/05/21 05:05 Schistocytes Not Reportable 12/05/21 05:05 Malaria parasites Not Reportable 12/05/21 05:05 Magdy Bodies Not Reportable 12/05/21 05:05 Hem Pathologist Commnt No 12/05/21 05:05 PT 17.2 Sec. (12.2-14.9) H 10/30/21 16:30 INR 1.27 (0.87-1.13) H 10/30/21 16:30 APTT 44.4 Sec. (24.2-36.6) H 10/30/21 16:30 D-Dimer > 78161 ng/mlDDU (0-234) H 10/30/21 Unknown Heparin Anti-Xa Level 0.31 U.I./ml (0.3-0.7) 12/07/21 06:11 ABG pH 7.450 pH Units (7.350-7.450) 12/01/21 Unknown ABG pCO2 38.0 mm Hg 12/01/21 Unknown ABG pO2 88.9 mm Hg (80.0-90.0) 12/01/21 Unknown ABG HCO3 25.8 mmol/L (20.0-26.0) 12/01/21 Unknown ABG O2 Saturation 97.2 % (95.0-99.0) 12/01/21 Unknown ABG O2 Content 19.4 (0.0-44) 12/01/21 Unknown ABG Base Excess 1.9 mmol/L (-2.0-3.0) 12/01/21 Unknown ABG Hemoglobin 14.3 gm/dl (12.0-16.0) 12/01/21 Unknown ABG Carboxyhemoglobin 1.0 % (0.0-5.0) 12/01/21 Unknown ABG Methemoglobin 0.5 % (0.0-1.5) 12/01/21 Unknown Oxyhemoglobin 95.8 % (95.0-99.0) 12/01/21 Unknown FiO2 21 % 12/01/21 Unknown Sodium 126 mmol/L (137-145) L 12/07/21 06:11 Potassium 4.9 mmol/L (3.6-5.0) 12/07/21 06:11 Chloride 90.1 mmol/L (98-107) L 12/07/21 06:11 Carbon Dioxide 24 mmol/L (22-30) 12/07/21 06:11 Anion Gap 17 mmol/L 12/07/21 06:11 BUN 43 mg/dL (7-17) H 12/07/21 06:11 Creatinine 4.2 mg/dL (0.6-1.2) H 12/07/21 06:11 Estimated GFR 13 ml/min 12/07/21 06:11 BUN/Creatinine Ratio 10 % 12/07/21 06:11 Glucose 100 mg/dL (65-100) 12/07/21 06:11 POC Glucose 88 mg/dL (70-105) 12/07/21 08:00 Hemoglobin A1c 6.7 % (4-6) H 10/31/21 04:30 Lactic Acid 0.70 mmol/L (0.7-2.0) 10/31/21 15:45 Calcium 8.6 mg/dL (8.4-10.2) 12/07/21 06:11 Phosphorus 5.20 mg/dL (2.5-4.5) H 12/02/21 03:22 Magnesium 1.60 mg/dL (1.7-2.3) L 11/19/21 14:38 Ferritin 208.4 ng/mL (10.0-200.0) H 10/30/21 Unknown Total Bilirubin < 0.20 mg/dL (0.1-1.2) 11/06/21 02:35 AST 21 units/L (5-40) 11/06/21 02:35 ALT 77 units/L (7-56) H 11/06/21 02:35 Alkaline Phosphatase 84 units/L (35-129) 11/06/21 02:35 Ammonia 31.0 umol/L (25-60) 10/29/21 15:10 Lactate Dehydrogenase 469 units/L (91-180) H 10/30/21 Unknown Troponin T 1.150 ng/mL (0.00-0.029) H* D 10/29/21 22:34 C-Reactive Protein 13.40 mg/dL (0.00-1.30) H 10/30/21 Unknown Total Protein 6.3 g/dL (6.3-8.2) 11/06/21 02:35 Albumin 3.0 g/dL (3.9-5) L 11/06/21 02:35 Albumin/Globulin Ratio 0.9 % 11/06/21 02:35 Triglycerides 68 mg/dL (2-149) 10/29/21 19:40 Cholesterol 98 mg/dL (50-199) 10/29/21 19:40 LDL Cholesterol Direct 43 mg/dL (50-130) L 10/29/21 19:40 HDL Cholesterol 50 mg/dL (40-59) 10/29/21 19:40 Cholesterol/HDL Ratio 1.96 % 10/29/21 19:40 Procalcitonin 61.95 ng/mL (<0.15) 10/30/21 Unknown TSH 3.080 mlU/mL (0.270-4.200) 10/29/21 15:10 Urine Color Yellow (Yellow) 11/13/21 08:30 Urine Turbidity Slightly-cloudy (Clear) 11/13/21 08:30 Urine pH 6.0 (5.0-7.0) 11/13/21 08:30 Ur Specific [place] 1.010 (1.003-1.030) 11/13/21 08:30 Urine Protein <15 mg/dl mg/dL (Negative) 11/13/21 08:30 Urine Glucose (UA) Neg mg/dL (Negative) 11/13/21 08:30 Urine Ketones Tr mg/dL (Negative) 11/13/21 08:30 Urine Blood Sm (Negative) 11/13/21 08:30 Urine Nitrite Neg (Negative) 11/13/21 08:30 Urine Bilirubin Neg (Negative) 11/13/21 08:30 Urine Urobilinogen < 2.0 mg/dL (<2.0) 11/13/21 08:30 Ur Leukocyte Esterase Neg (Negative) 11/13/21 08:30 Urine WBC (Auto) < 1.0 /HPF (0.0-6.0) 11/13/21 08:30 Urine RBC (Auto) < 1.0 /HPF (0.0-6.0) 11/13/21 08:30 U Epithel Cells (Auto) < 1.0 /HPF (0-13.0) 11/13/21 08:30 Urine Mucus Few /HPF 10/29/21 18:15 Urine Eosinophils None seen (None Seen) 11/04/21 Unknown Urine Creatinine 190.9 mg/dL (0.1-20.0) H 11/04/21 Unknown Protein/Creatinin Ratio 0.90 11/04/21 Unknown Urine Sodium 10 mmol/L 11/04/21 Unknown Urine Total Protein 172 mg/dL (5-11.8) H 11/04/21 Unknown Salicylates < 0.3 mg/dL (2.8-20.0) L 10/29/21 15:10 Urine Opiates Screen Negative 10/29/21 18:15 Urine Methadone Screen Negative 10/29/21 18:15 Acetaminophen 5.0 ug/mL (10.0-30.0) L 10/29/21 15:10 Ur Barbiturates Screen Negative 10/29/21 18:15 Ur Phencyclidine Scrn Negative 10/29/21 18:15 Ur Amphetamines Screen Negative 10/29/21 18:15 U Benzodiazepines Scrn Negative 10/29/21 18:15 Urine Cocaine Screen Negative 10/29/21 18:15 U Marijuana (THC) Screen Negative 10/29/21 18:15 Drugs of Abuse Note Disclamer 10/29/21 18:15 Plasma/Serum Alcohol < 0.01 % (0-0.07) 10/29/21 15:10 Coronavirus (PCR) Negative (Negative) 10/30/21 Unknown Hepatitis A IgM Ab Non-reactive (NonReactive) 12/01/21 19:36 Hep Bs Antigen Non-reactive (Negative) 12/01/21 19:36 Hep B Core IgM Ab Non-reactive (NonReactive) 12/01/21 19:36 Hepatitis C Antibody Non-reactive (NonReactive) 12/01/21 19:36 Blood Type O POSITIVE 11/12/21 04:15 Antibody Screen Negative 11/12/21 04:15 Crossmatch See Detail 11/12/21 04:15 Krishna/IV: Voiding Method External Female Catheter Active Medications - Current Medications Current Medications: Generic Name Dose Route Start Last Admin Trade Name Freq PRN Reason Stop Dose Admin Acetaminophen 650 mg 10/29/21 17:04 11/12/21 22:53 Acetaminophen 650 Mg Rect Supp [place] 650 mg Q6H PRN Administration Pain MILD(1-3)/Fever >100.5/NIEVES Acetaminophen 650 mg 11/19/21 16:35 12/02/21 18:20 Acetaminophen 325 Mg Tab PO 650 mg Q6HR PRN Administration PAIN Albumin Human 50 gm 12/02/21 11:00 12/02/21 11:55 Albumin Human 25% (25 Gm/100 Ml) Inj IV 50 gm ZACH PRN Administration Hypotension Alprazolam 0.25 mg 11/14/21 14:29 12/03/21 23:02 Alprazolam 0.25 Mg Tab PO 0.25 mg Q8H PRN Administration Anxiety Amiodarone HCl 200 mg 12/06/21 12:00 12/07/21 09:09 Amiodarone 200 Mg Tab PO 200 mg BID RAMON Administration Docusate Sodium 100 mg 11/18/21 15:00 12/07/21 09:09 Docusate Sodium 100 Mg Cap PO 100 mg BID RAMON Administration Epoetin Landon-epbx 10,000 unit 12/06/21 10:00 Epoetin L[place]-Epbx 10,000 Unit/1 Ml Vial IV ZACH PRN hemodialysis Famotidine 10 mg 11/06/21 10:00 12/07/21 09:09 Famotidine 10 Mg Tab PO 10 mg BID RAMON Administration Furosemide 40 mg 12/06/21 10:00 12/07/21 09:07 Furosemide 40 Mg/4 Ml Inj IV 40 mg QDAY RAMON Administration Gabapentin 100 mg 11/28/21 14:00 12/07/21 06:38 Gabapentin 100 Mg Cap PO 100 mg Q8HR RAMON Administration Heparin Sodium (Porcine) 4,000 unit 12/01/21 07:50 12/02/21 17:22 Heparin 10,000 Units/10 Ml Vial 40 unit/kg (4300 unit) 4,000 unit IV Administration Q6H PRN Anti-Xa Assay < 0.1 units/ml Hydrophilic Ointment 1 applic 10/29/21 14:29 11/09/21 08:51 Lip Therapy Vaseline TP 1 applic Q2HR PRN Administration Dry Lips Heparin Sodium/Sodium Chloride 25,000 unit in 500 mls @ 30 mls/hr 11/28/21 17:00 12/07/21 06:39 Heparin/ 0.45% Nacl-25,000 Unit/500 Ml IV 1,950 units/hr TITR RAMON 39 mls/hr Administration Protocol 1,500 UNITS/HR Sodium Chloride 100 mls @ 999 mls/hr 12/01/21 14:44 Nacl 0.9% IV ZACH PRN Hypotension Insulin Human Lispro 0 unit 11/25/21 22:00 12/07/21 08:30 Insulin Lispro 100 Unit/Ml SUB-Q Not Given ACHS [facility] Protocol Lactulose 20 gm 11/18/21 14:43 12/06/21 15:26 Lactulose 20 Gm/30 Ml Oral Liqd PO 20 gm Q6H PRN Administration Constipation Melatonin 10 mg 11/22/21 17:31 12/05/21 22:38 Melatonin 5 Mg Tab PO 10 mg QHS PRN Administration Sleep Metoprolol Tartrate 50 mg 12/05/21 12:00 12/07/21 09:08 Metoprolol Tartrate 50 Mg Tab PO Not Given BID [facility] Midodrine 10 mg 12/01/21 12:00 12/07/21 08:51 Midodrine 5 Mg Tab PO 10 mg TID@0800,1200,1600 [facility] Administration Morphine Sulfate 1 mg 11/28/21 15:00 12/03/21 21:43 Morphine 2 Mg/1 Ml Inj IV 1 mg Q4H PRN Administration Pain, Moderate (4-6) Multi-Ingred Cream/Lotion/Oil/Oint 1 applic 10/29/21 14:29 11/06/21 09:25 Mineral Oil/Petrolatum, White Ophth Oint 3.5 Gm OU 1 applic Q4HR PRN Administration Dry Eye(s) Oxycodone/Acetaminophen 1 tab 11/27/21 14:31 12/05/21 22:39 Oxycodone /Acetaminophen 5-325mg Tab PO 1 tab Q4H PRN Administration Pain, Moderate (4-6) Polyethylene Glycol 17 gm 11/20/21 12:47 11/25/21 08:30 Polyethylene Glycol 3350 17 Gm Powder PO 17 gm QDAY PRN Administration Constipation Senna/Docusate Sodium 1 tab 11/16/21 22:00 12/07/21 09:08 Sennosides/Docusate Sodium 8.6/50 Mg Tab PO 1 tab BID RAMON Administration Sodium Chloride 10 ml 10/29/21 22:00 12/07/21 09:07 Sodium Chloride 0.9% 10 Ml Flush Syringe IV 10 ml BID RAMON Administration Sodium Chloride 10 ml 10/29/21 17:04 Sodium Chloride 0.9% 10 Ml Flush Syringe IV PRN PRN LINE FLUSH Nutrition/Malnutrition Assess - Dietary Evaluation Nutrition/Malnutrition Findings: Nutrition Notes Start: 10/30/21 09:50 Freq: Status: Active Protocol: Document 12/05/21 17:37 MEENU (Rec: 12/05/21 17:55 MEENU [id number]) Nutrition Notes Initial or Follow up Brief Note Current Diagnosis Acute Kidney Injury,Sepsis, Hypertension Other Pertinent Diagnosis s/p cardiac arrest, anemia Current Diet Renal -mech Soft- Diet + D Supplement (since D 12/02). Height 5 ft 10 in Weight 114.8 kg [place] Body Weight (kg) 68.18 BMI 36.3 Weight change and time frame No body weight change reported in 3 days. Weight Status Obese Subjective/Other Information RD consult for routine F/U on Dietary tolerance. Pt's PO intake of meals has improved to 75% and well tolerated, according to ADL notes. Pt still receiving vasopressors. Percent of energy/protein needs met: Prescribed Renal Diet provides for energy/protein needs (2, 072 Kcal/77 g) during LOS; additionally, Dietary Supplements will compensate for possible poor or insufficient PO intake of meals with 425 Kcal and 19 g of protein. Current % PO Good (75-100%) #1 Nutrition Diagnosis Inadequate oral intake Comments: Pt's PO intake of meals has been at 75%, and well tolerated, according to ADL notes. Diet advanced to Renal - mechanical soft-. Diagnosis Progress(for reassessment Improved documentation) Is patient on ventilator? No Is Patient Ambulatory and/or Out of Bed No REE-([facility]-confined to bed) 2120.952 Kcal/Kg value to use for calculation 14 Approximate Energy Requirements Using 1607 kcal/Kg Calculation Used for Recommendations Kcal/kg Additional Notes Protein: >1.2 g/Kg AdjBW; >110 g/day. Fluids: 1-1.5 L/day, or as per MD. Nutrition Intervention Change Diet Order: Continue Renal -mechanical soft- Diet. Add Supplement/Snack (indicate name/kcal Nepro once daily (vanilla) /protein ) Provides kCal: 425 Provides Protein (gm) 19 Goal #1 Compensate, through dietary supplementation, for possible poor or insufficient PO intake of meals during LOS. Goal #2 Facilitate PO intake of meals with mechanical modification during LOS. Goal #3 Maintain body weight within +/ -3% of admission body weight during LOS. Follow-Up By: 12/13/21 Additional Comments Continue monitoring food tolerance, %PO intake of meals , and BM.
--- NOTE | 2021-12-07 11:03 | Progress Note ---
Assessment and Plan Assessment: Acute Renal Failure secondary to Ischemic ATN secondary to Sepsis, Cardiac arrest and Hypotension S/P Cardiac Arrest Acute Hypoxemic Respiratory Failure Acute DVT Sepsis CHF Anemia Hyperkalemia Hyponatremia Plan: Renal labs reviewed. Serum creatinine 4.2 today, yesterday's was 4.0, No UOP Did not receive hemodialysis yesterday as ordered. Will reorder hemodialysis today for UF and clearance. 24 hour urine collection ordered for creatinine clearance but not making urine Patient's renal failure is likely Acute from Ischemic ATN and she may at some point have renal recovery, will monitor closely D/C Lasix as not making urine IV Albumin prn to help with BP support during HD if needed On Midodrine 10 mg po TID CHF-LVEF 25-30 % Anemia-On Epogen 10,000 units TIW Obtain daily weights Strict I/O's daily Renally dose medications Avoid nephrotoxic agents Continue to monitor renal function closely Assess dialysis needs daily Updated daughter Eva at bedside on plan of care. Plan of care reviewed by Dr. Giordano Subjective Date of service: 12/07/21 Principal diagnosis: AHRF; Cardiac arrest; R. pneumothorax; pneumonia; AMS; DVT's; SIERRA; Obesity Interval history: Patient seen lying in bed. Daughter (Eva) at bedside, updated her on plan of care. Objective - Vital Signs Vital signs: Vital Signs - 12hr 12/07/21 12/07/21 12/07/21 04:00 04:18 07:51 Temperature 97.3 F L 97.5 F L Pulse Rate 127 H 69 119 H Pulse Rate [ From Monitor] Respiratory 18 18 Rate Blood Pressure 132/84 124/71 O2 Sat by Pulse 100 100 Oximetry 12/07/21 12/07/21 12/07/21 08:00 09:08 09:36 Temperature Pulse Rate 119 H Pulse Rate [ 119 H From Monitor] Respiratory Rate Blood Pressure 124/71 O2 Sat by Pulse 100 99 Oximetry - General Appearance General appearance: well-developed, appears stated age EENT: ATNC, PERRL, hearing intact, vision intact Neck: no JVD, supple Respiratory: Present: Decreased Breath Sounds Cardiology: S1S2 Gastrointestinal: normoactive bowel sounds Integumentary: warm and dry Neurologic: alert and oriented x3 Musculoskeletal: joint swelling, other (2-3+ edema to BLE) Psychiatric: cooperative - Lab 12/06/21 04:36 12/07/21 06:11 Most recent lab results ABG pH 7.450 pH Units (7.350-7.450) 12/01/21 Unknown ABG pCO2 38.0 mm Hg 12/01/21 Unknown ABG pO2 88.9 mm Hg (80.0-90.0) 12/01/21 Unknown ABG HCO3 25.8 mmol/L (20.0-26.0) 12/01/21 Unknown ABG O2 Saturation 97.2 % (95.0-99.0) 12/01/21 Unknown Calcium 8.6 mg/dL (8.4-10.2) 12/07/21 06:11 Phosphorus 5.20 mg/dL (2.5-4.5) H 12/02/21 03: Magnesium 1.60 mg/dL (1.7-2.3) L 11/19/21 14:38 Urine Creatinine 190.9 mg/dL (0.1-20.0) H 11/04/21 Unknown Urine Sodium 10 mmol/L 11/04/21 Unknown Urine Total Protein 172 mg/dL (5-11.8) H 11/04/21 Unknown Medications & Allergies - Medications Allergies/Adverse Reactions: Allergies No Known Allergies Allergy (Verified 10/29/21 14:01) Home Medications: Home Medications Medication Instructions Recorded Confirmed Last Taken Type Unobtainable 11/10/21 11/10/21 Unknown History Active Medications: Generic Name Dose Route Start Last Admin Trade Name Freq PRN Reason Stop Dose Admin Acetaminophen 650 mg 10/29/21 17:04 11/12/21 22:53 Acetaminophen 650 Mg Rect Supp [place] 650 mg Q6H PRN Administration Pain MILD(1-3)/Fever >100.5/NIEVES Acetaminophen 650 mg 11/19/21 16:35 12/02/21 18:20 Acetaminophen 325 Mg Tab PO 650 mg Q6HR PRN Administration PAIN Albumin Human 50 gm 12/02/21 11:00 12/02/21 11:55 Albumin Human 25% (25 Gm/100 Ml) Inj IV 50 gm ZACH PRN Administration Hypotension Alprazolam 0.25 mg 11/14/21 14:29 12/03/21 23:02 Alprazolam 0.25 Mg Tab PO 0.25 mg Q8H PRN Administration Anxiety Amiodarone HCl 200 mg 12/06/21 12:00 12/07/21 09:09 Amiodarone 200 Mg Tab PO 200 mg BID RAMON Administration Docusate Sodium 100 mg 11/18/21 15:00 12/07/21 09:09 Docusate Sodium 100 Mg Cap PO 100 mg BID RAMON Administration Epoetin Landon-epbx 10,000 unit 12/06/21 10:00 Epoetin [place]-Epbx 10,000 Unit/1 Ml Vial IV ZACH PRN hemodialysis Famotidine 10 mg 11/06/21 10:00 12/07/21 09:09 Famotidine 10 Mg Tab PO 10 mg BID RAMON Administration Furosemide 40 mg 12/06/21 10:00 12/07/21 09:07 Furosemide 40 Mg/4 Ml Inj IV 40 mg QDAY RAMON Administration Gabapentin 100 mg 11/28/21 14:00 12/07/21 06:38 Gabapentin 100 Mg Cap PO 100 mg Q8HR RAMON Administration Heparin Sodium (Porcine) 4,000 unit 12/01/21 07:50 12/02/21 17:22 Heparin 10,000 Units/10 Ml Vial 40 unit/kg (4300 unit) 4,000 unit IV Administration Q6H PRN Anti-Xa Assay < 0.1 units/ml Hydrophilic Ointment 1 applic 10/29/21 14:29 11/09/21 08:51 Lip Therapy Vaseline TP 1 applic Q2HR PRN Administration Dry Lips Heparin Sodium/Sodium Chloride 25,000 unit in 500 mls @ 30 mls/hr 11/28/21 17:00 12/07/21 06:39 Heparin/ 0.45% Nacl-25,000 Unit/500 Ml IV 1,950 units/hr TITR RAMON 39 mls/hr Administration Protocol 1,500 UNITS/HR Sodium Chloride 100 mls @ 999 mls/hr 12/01/21 14:44 Nacl 0.9% IV ZACH PRN Hypotension Insulin Human Lispro 0 unit 11/25/21 22:00 12/07/21 08:30 Insulin Lispro 100 Unit/Ml SUB-Q Not Given ACH[facility] Protocol Lactulose 20 gm 11/18/21 14:43 12/06/21 15:26 Lactulose 20 Gm/30 Ml Oral Liqd PO 20 gm Q6H PRN Administration Constipation Melatonin 10 mg 11/22/21 17:31 12/05/21 22:38 Melatonin 5 Mg Tab PO 10 mg QHS PRN Administration Sleep Metoprolol Tartrate 100 mg 12/07/21 11:00 Metoprolol Tartrate 50 Mg Tab PO BID RAMON Midodrine 10 mg 12/01/21 12:00 12/07/21 08:51 Midodrine 5 Mg Tab PO 10 mg TID@0800,1200,1600 RAMON Administration Morphine Sulfate 1 mg 11/28/21 15:00 12/03/21 21:43 Morphine 2 Mg/1 Ml Inj IV 1 mg Q4H PRN Administration Pain, Moderate (4-6) Multi-Ingred Cream/Lotion/Oil/Oint 1 applic 10/29/21 14:29 11/06/21 09:25 Mineral Oil/Petrolatum, White Ophth Oint 3.5 Gm OU 1 applic Q4HR PRN Administration Dry Eye(s) Oxycodone/Acetaminophen 1 tab 11/27/21 14:31 12/05/21 22:39 Oxycodone /Acetaminophen 5-325mg Tab PO 1 tab Q4H PRN Administration Pain, Moderate (4-6) Polyethylene Glycol 17 gm 11/20/21 12:47 11/25/21 08:30 Polyethylene Glycol 3350 17 Gm Powder PO 17 gm QDAY PRN Administration Constipation Senna/Docusate Sodium 1 tab 11/16/21 22:00 12/07/21 09:08 Sennosides/Docusate Sodium 8.6/50 Mg Tab PO 1 tab BID RAMON Administration Sodium Chloride 10 ml 10/29/21 22:00 12/07/21 09:07 Sodium Chloride 0.9% 10 Ml Flush Syringe IV 10 ml BID RAMON Administration Sodium Chloride 10 ml 10/29/21 17:04 Sodium Chloride 0.9% 10 Ml Flush Syringe IV PRN PRN LINE FLUSH
--- NOTE | 2021-12-07 11:43 | Progress Note ---
Assessment and Plan Patient is a 66-year-old female with unknown past medical history brought into the ED following outside of hospital cardiac arrest thought to be PEA with thought to have downtime of 7 to 9 minutes however details are unclear S/P PEA cardiopulmonary arrest- Acute hypoxic respiratory failure-pulm following Septic shock Bacteremia Pneumonia Acute renal failure on HD-nephrology following Atrial flutter w/ RVR Pneumothorax- s/p CT Acute bilateral DVT-on Heparin gtt Hypokalemia Transaminitis Retroperitoneal Hematoma s/p IVC Echo 10/30/2021-technically difficult study due to body habitus. EF 25 to 30%. Right ventricular systolic function is normal. No pericardial effusion Plan: Previously on metoprolol 100 mg p.o. twice daily, aldactone 25mg PO QD, and losartan 25 mg p.o. daily Patient trending A. fib 90s to low 100s on monitor. Will increase metoprolol 200 mg p.o. twice daily for rate control. Closely monitor heart rate Continue to amiodarone 200 mg p.o. twice daily Due to soft BP will hold previous antihypertensive medication. Will plan to initiate once patient is hemodynamically stable Will hold LAYO and ARB due to renal function. Volume management per nephrology due to end-stage renal disease on hemodialysis Patient currently anticoagulated on heparin drip Patient requires ischemic eval however due to patient's multiple other comorbidities and instability at this time unable to do as an inpatient. Will plan for outpatient ischemic eval Discussed plan of care with patient and patient's daughter who was at bedside. They verbalized understanding and agreement with plan Patient seen in conjunction with Dr. Johnson who agrees with this plan of care - Patient Problems (1) Cardiopulmonary arrest Current Visit: Yes Status: Acute (2) Hypokalemia Current Visit: Yes Status: Acute (3) Transaminitis Current Visit: Yes Status: Acute (4) Aspiration pneumonia Current Visit: Yes Status: Acute (5) Acute hypoxemic respiratory failure Current Visit: Yes Status: Acute (6) Septic shock Current Visit: Yes Status: Acute (7) Toxic metabolic encephalopathy Current Visit: Yes Status: Acute (8) Shock liver Current Visit: Yes Status: Acute Subjective Date of service: 12/07/21 Principal diagnosis: AHRF; Cardiac arrest; R. pneumothorax; pneumonia; AMS; DVT's; SIERRA; Obesity Interval history: Patient resting in bed in no acute distress. Patient A. fib rate trending 90s-low 100s. No events on monitor Objective Vital Signs Temp Pulse Pulse Pulse Resp BP Pulse Ox 12/07/21 09:36 99 12/07/21 09:08 119 H 124/71 12/07/21 08:00 119 H 100 12/07/21 07:51 97.5 F L 119 H 18 124/71 100 12/07/21 04:18 97.3 F L 69 18 132/84 100 12/07/21 04:00 127 H 12/06/21 22:35 125 H 129/80 12/06/21 20:08 99 12/06/21 20:00 90 18 97 12/06/21 19:29 98.9 F 125 H 20 129/80 98 12/06/21 16:18 98.6 F 71 26 H 130/86 97 12/06/21 15:08 120/81 12/06/21 12:10 83 - Physical Examination General: No Apparent Distress HEENT: Positive: EOMI, Normocephaly Neck: Positive: trachea midline. Negative: JVD/HJR Cardiac: Positive: irregularly irregular Lungs: Positive: Normal Breath Sounds Neuro: Positive: Grossly Intact Abdomen: Positive: Soft Skin: Negative: Rash Musculoskeletal: No Pain Extremities: Present: upper extr. pulses, edema, warm - Labs and Meds Comprehensive Metabolic Panel 12/07/21 Range/Units 06:11 Sodium 126 L (137-145) mmol/L Potassium 4.9 (3.6-5.0) mmol/L Chloride 90.1 L (98-107) mmol/L Carbon Dioxide 24 (22-30) mmol/L BUN 43 H (7-17) mg/dL Creatinine 4.2 H (0.6-1.2) mg/dL Glucose 100 (65-100) mg/dL Calcium 8.6 (8.4-10.2) mg/dL - Imaging and Cardiology EKG: report reviewed, image reviewed Echo: report reviewed - Telemetry EKG Rhythm: Atrial Fibrillation - EKG Supraventricular dysrhythmia: atrial fibrillation Ventricular dysrhythmias: ventricular premature com Repolarization changes or abnormalities: nonspecific abnormality, ST segment, and/or T wave Myocardial infarction: septal SC (old age or ind - Allied health notes Allied health notes reviewed: nursing
[2021-12-07] MEDS: ALPRAZolam 0.25 MG TAB PO PRN (12:00)
[2021-12-07] MEDS: EPOETIN ALFA-EPBX 10,000 UNIT/1 ML VIAL IV PRN (15:30)
[2021-12-08] MEDS: GABAPENTIN 100 MG CAP PO SCH ×3 (05:28→21:32)
[2021-12-08 05:29] LABS: Hematocrit 24.1 % (30.3-42.9); Hemoglobin 7.6 gm/dl (10.1-14.3); Mean Corpuscular HGB Conc 32 % (30-34); Mean Corpuscular Volume 89 fl (79-97); Platelet Count 114 K/mm3 (140-440); Red Blood Count 2.71 M/mm3 (3.65-5.03); Red Cell Distribution Width 16.7 % (13.2-15.2)
[2021-12-08 05:38] LABS: Calcium 8.4 mg/dL (8.4-10.2)
[2021-12-08 06:15] LABS: Basophils % (Manual) 0 % (0.0-1.8); Total Cells Counted 100
[2021-12-08 06:16] LABS: Anisocytosis 1+; Hypochromasia 1+; Platelet Estimate Consistent w Auto
[2021-12-08] MEDS: INSULIN LISPRO 100 UNIT/ML SUB-Q SCH ×4 (08:00→23:52)
--- NOTE | 2021-12-08 09:50 | Progress Note ---
Assessment and Plan Acute Renal Failure secondary to Ischemic ATN secondary to Sepsis, Cardiac arrest and Hypotension S/P Cardiac Arrest Acute Hypoxemic Respiratory Failure Acute DVT Sepsis CHF Anemia Hyperkalemia Hyponatremia Plan: no indication for HD today will request permcath placeemnt On Midodrine 10 mg po TID CHF-LVEF 25-30 % Anemia-On Epogen 10,000 units TIW Obtain daily weights Strict I/O's daily Renally dose medications Avoid nephrotoxic agents Continue to monitor renal function closely Assess dialysis needs daily Subjective Date of service: 12/08/21 Principal diagnosis: AHRF; Cardiac arrest; R. pneumothorax; pneumonia; AMS; DVT's; SIERRA; Obesity Interval history: tolerated HD yesterday Objective - Vital Signs Vital signs: Vital Signs - 12hr 12/07/21 12/08/21 12/08/21 22:58 03:32 07:46 Temperature 97.5 F L 98.8 F 97.5 F L Pulse Rate 70 60 65 Respiratory 20 19 18 Rate Blood Pressure 121/77 104/62 131/81 O2 Sat by Pulse 99 100 100 Oximetry - Lab 12/08/21 04:53 12/08/21 04:53 Most recent lab results ABG pH 7.450 pH Units (7.350-7.450) 12/01/21 Unknown ABG pCO2 38.0 mm Hg 12/01/21 Unknown ABG pO2 88.9 mm Hg (80.0-90.0) 12/01/21 Unknown ABG HCO3 25.8 mmol/L (20.0-26.0) 12/01/21 Unknown ABG O2 Saturation 97.2 % (95.0-99.0) 12/01/21 Unknown Calcium 8.4 mg/dL (8.4-10.2) 12/08/21 04:53 Phosphorus 5.20 mg/dL (2.5-4.5) H 12/02/21 03:22 Magnesium 1.60 mg/dL (1.7-2.3) L 11/19/21 14:38 Urine Creatinine 190.9 mg/dL (0.1-20.0) H 11/04/21 Unknown Urine Sodium 10 mmol/L 11/04/21 Unknown Urine Total Protein 172 mg/dL (5-11.8) H 11/04/21 Unknown Medications & Allergies - Medications Allergies/Adverse Reactions: Allergies No Known Allergies Allergy (Verified 10/29/21 14:01) Home Medications: Home Medications Medication Instructions Recorded Confirmed Last Taken Type Unobtainable 11/10/21 11/10/21 Unknown History Active Medications: Generic Name Dose Route Start Last Admin Trade Name Freq PRN Reason Stop Dose Admin Acetaminophen 650 mg 10/29/21 17:04 11/12/21 22:53 Acetaminophen 650 Mg Rect Supp [place] 650 mg Q6H PRN Administration Pain MILD(1-3)/Fever >100.5/NIEVES Acetaminophen 650 mg 11/19/21 16:35 12/02/21 18:20 Acetaminophen 325 Mg Tab PO 650 mg Q6HR PRN Administration PAIN Albumin Human 50 gm 12/02/21 11:00 12/02/21 11:55 Albumin Human 25% (25 Gm/100 Ml) Inj IV 50 gm ZACH PRN Administration Hypotension Alprazolam 0.25 mg 11/14/21 14:29 12/07/21 12:00 Alprazolam 0.25 Mg Tab PO 0.25 mg Q8H PRN Administration Anxiety Amiodarone HCl 200 mg 12/06/21 12:00 12/07/21 21:28 Amiodarone 200 Mg Tab PO 200 mg BID RAMON Administration Docusate Sodium 100 mg 11/18/21 15:00 12/07/21 21:28 Docusate Sodium 100 Mg Cap PO 100 mg BID RAMON Administration Epoetin Landon-epbx 10,000 unit 12/06/21 10:00 12/07/21 15:30 Epoetin Landon-Epbx 10,000 Unit/1 Ml Vial IV 10,000 unit ZCAH PRN Administration hemodialysis Famotidine 10 mg 11/06/21 10:00 12/07/21 21:28 Famotidine 10 Mg Tab PO 10 mg BID RAMON Administration Gabapentin 100 mg 11/28/21 14:00 12/08/21 05:28 Gabapentin 100 Mg Cap PO 100 mg Q8HR RAMON Administration Heparin Sodium (Porcine) 4,000 unit 12/01/21 07:50 12/02/21 17:22 Heparin 10,000 Units/10 Ml Vial 40 unit/kg (4300 unit) 4,000 unit IV Administration Q6H PRN Anti-Xa Assay < 0.1 units/ml Hydrophilic Ointment 1 applic 10/29/21 14:29 11/09/21 08:51 Lip Therapy Vaseline TP 1 applic Q2HR PRN Administration Dry Lips Heparin Sodium/Sodium Chloride 25,000 unit in 500 mls @ 30 mls/hr 11/28/21 17:00 12/07/21 06:39 Heparin/ 0.45% Nacl-25,000 Unit/500 Ml IV 1,950 units/hr TITR RAMON 39 mls/hr Administration Protocol 1,500 UNITS/HR Sodium Chloride 100 mls @ 999 mls/hr 12/01/21 14:44 Nacl 0.9% IV ZACH PRN Hypotension Insulin Human Lispro 0 unit 11/25/21 22:00 12/07/21 23:27 Insulin Lispro 100 Unit/Ml SUB-Q Not Given ACHS [facility] Protocol Lactulose 20 gm 11/18/21 14:43 12/06/21 15:26 Lactulose 20 Gm/30 Ml Oral Liqd PO 20 gm Q6H PRN Administration Constipation Melatonin 10 mg 11/22/21 17:31 12/05/21 22:38 Melatonin 5 Mg Tab PO 10 mg QHS PRN Administration Sleep Metoprolol Tartrate 100 mg 12/07/21 11:00 12/07/21 21:28 Metoprolol Tartrate 50 Mg Tab PO 100 mg BID RAMON Administration Midodrine 10 mg 12/01/21 12:00 12/07/21 17:20 Midodrine 5 Mg Tab PO 10 mg TID@0800,1200,1600 [facility] Administration Morphine Sulfate 1 mg 11/28/21 15:00 12/03/21 21:43 Morphine 2 Mg/1 Ml Inj IV 1 mg Q4H PRN Administration Pain, Moderate (4-6) Multi-Ingred Cream/Lotion/Oil/Oint 1 applic 10/29/21 14:29 11/06/21 09:25 Mineral Oil/Petrolatum, White Ophth Oint 3.5 Gm OU 1 applic Q4HR PRN Administration Dry Eye(s) Oxycodone/Acetaminophen 1 tab 11/27/21 14:31 12/05/21 22:39 Oxycodone /Acetaminophen 5-325mg Tab PO 1 tab Q4H PRN Administration Pain, Moderate (4-6) Polyethylene Glycol 17 gm 11/20/21 12:47 11/25/21 08:30 Polyethylene Glycol 3350 17 Gm Powder PO 17 gm QDAY PRN Administration Constipation Senna/Docusate Sodium 1 tab 11/16/21 22:00 12/07/21 21:28 Sennosides/Docusate Sodium 8.6/50 Mg Tab PO 1 tab BID RAMON Administration Sodium Chloride 10 ml 10/29/21 22:00 12/07/21 21:29 Sodium Chloride 0.9% 10 Ml Flush Syringe IV 10 ml BID RAMON Administration Sodium Chloride 10 ml 10/29/21 17:04 Sodium Chloride 0.9% 10 Ml Flush Syringe IV PRN PRN LINE FLUSH
[2021-12-08] MEDS: AMIODARONE 200 MG TAB PO SCH ×2 (09:51→21:32)
[2021-12-08] MEDS: SENNOSIDES/DOCUSATE SODIUM 8.6/50 MG TAB PO SCH ×2 (09:52→21:32)
[2021-12-08] MEDS: FAMOTIDINE 10 MG TAB PO SCH ×2 (09:54→21:32)
[2021-12-08] MEDS: DOCUSATE SODIUM 100 MG CAP PO SCH ×2 (09:54→21:32)
[2021-12-08] MEDS: POLYETHYLENE GLYCOL 3350 17 GM POWDER PO PRN (09:54)
[2021-12-08] MEDS: HEPARIN/ 0.45% NACL DRIP 25,000 UNIT/500 ML BAG IV SCH (09:57)
[2021-12-08] MEDS: METOPROLOL TARTRATE 50 MG TAB PO SCH ×2 (10:16→21:32)
[2021-12-08] MEDS: MIDODRINE 5 MG TAB PO SCH ×3 (10:18→18:56)
--- NOTE | 2021-12-08 11:30 | Progress Note ---
Assessment and Plan Patient is a 66-year-old female with unknown past medical history brought into the ED following outside of hospital cardiac arrest thought to be PEA with thought to have downtime of 7 to 9 minutes however details are unclear S/P PEA cardiopulmonary arrest- Acute hypoxic respiratory failure-pulm following Septic shock Bacteremia Pneumonia Acute renal failure on HD-nephrology following Atrial flutter w/ RVR Pneumothorax- s/p CT Acute bilateral DVT-on Heparin gtt Hypokalemia Transaminitis Retroperitoneal Hematoma s/p IVC Echo 10/30/2021-technically difficult study due to body habitus. EF 25 to 30%. Right ventricular systolic function is normal. No pericardial effusion Plan: Previously on metoprolol 100 mg p.o. twice daily, aldactone 25mg PO QD, and losartan 25 mg p.o. daily Continue metoprolol 100 mg p.o. twice daily for rate control and amiodarone 200 mg p.o. twice daily BP is more stable will resume losartan 25 mg p.o. daily Volume management per nephrology due to end-stage renal disease on hemodialysis Patient currently anticoagulated on heparin drip Patient requires ischemic eval however due to patient's multiple other comorbidities and instability at this time unable to do as an inpatient. Will plan for outpatient ischemic eval Patient seen in conjunction with Dr. Johnson who agrees with this plan of care - Patient Problems (1) Cardiopulmonary arrest Current Visit: Yes Status: Acute (2) Hypokalemia Current Visit: Yes Status: Acute (3) Transaminitis Current Visit: Yes Status: Acute (4) Aspiration pneumonia Current Visit: Yes Status: Acute (5) Acute hypoxemic respiratory failure Current Visit: Yes Status: Acute (6) Septic shock Current Visit: Yes Status: Acute (7) Toxic metabolic encephalopathy Current Visit: Yes Status: Acute (8) Shock liver Current Visit: Yes Status: Acute Subjective Date of service: 12/08/21 Principal diagnosis: AHRF; Cardiac arrest; R. pneumothorax; pneumonia; AMS; DVT's; SIERRA; Obesity Interval history: Patient resting in bed in no acute distress. Patient A. fib rate trending 80s-90s. No events on monitor Objective Vital Signs Temp Pulse Pulse Resp BP BP Pulse Ox 12/08/21 10:16 115 H 135/82 12/08/21 10:10 97.7 F 115 H 30 H 135/82 100 12/08/21 08:00 64 26 H 100 12/08/21 07:46 97.5 F L 65 18 131/81 100 12/08/21 03:32 98.8 F 60 19 104/62 100 12/07/21 22:58 97.5 F L 70 20 121/77 99 12/07/21 20:20 94 12/07/21 20:02 99.2 F 92 H 20 112/70 100 12/07/21 20:00 100 12/07/21 16:43 98.3 F 97 H 22 112/66 100 12/07/21 16:00 119 H 12/07/21 15:55 98.2 F 101 H 18 137/71 12/07/21 15:40 132 H 130/70 12/07/21 15:30 132 H 130/70 12/07/21 15:15 107 H 162/75 12/07/21 15:00 90 138/71 12/07/21 14:53 132 H 126/52 12/07/21 14:45 90 147/77 12/07/21 14:22 131 H 141/60 12/07/21 14:15 135 H 96/54 12/07/21 14:00 136 H 101/65 12/07/21 13:45 75 150/78 12/07/21 13:30 133 H 151/85 12/07/21 13:15 135 H 127/74 12/07/21 13:00 90 149/83 12/07/21 12:51 130 H 129/81 12/07/21 12:36 96 H 145/99 12/07/21 12:21 98.2 F 113 H 30 H 124/70 12/07/21 12:14 98.2 F 26 L Pulse Ox 12/08/21 10:16 12/08/21 10:10 12/08/21 08:00 12/08/21 07:46 12/08/21 03:32 12/07/21 22:58 12/07/21 20:20 12/07/21 20:02 12/07/21 20:00 12/07/21 16:43 12/07/21 16:00 12/07/21 15:55 99 12/07/21 15:40 12/07/21 15:30 12/07/21 15:15 12/07/21 15:00 03/16/22 14:53 12/07/21 14:45 12/07/21 14:22 12/07/21 14:15 12/07/21 14:00 12/07/21 13:45 12/07/21 13:30 12/07/21 13:15 12/07/21 13:00 12/07/21 12:51 12/07/21 12:36 12/07/21 12:21 99 12/07/21 12:14 - Physical Examination General: No Apparent Distress HEENT: Positive: EOMI, Normocephaly Neck: Positive: trachea midline. Negative: JVD/HJR Cardiac: Positive: irregularly irregular Lungs: Positive: Normal Breath Sounds Neuro: Positive: Grossly Intact Abdomen: Positive: Soft Skin: Negative: Rash Musculoskeletal: No Pain Extremities: Present: upper extr. pulses, edema, warm - Labs and Meds CBC 12/08/21 Range/Units 04:53 WBC 24.2 H (4.5-11.0) K/mm3 RBC 2.71 L (3.65-5.03) M/mm3 Hgb 7.6 L (10.1-14.3) gm/dl Hct 24.1 L (30.3-42.9) % Plt Count 114 L (140-440) K/mm3 Comprehensive Metabolic Panel 12/08/21 Range/Units 04:53 Sodium 128 L (137-145) mmol/L Potassium 4.6 (3.6-5.0) mmol/L Chloride 93.1 L (98-107) mmol/L Carbon Dioxide 21 L (22-30) mmol/L BUN 39 H (7-17) mg/dL Creatinine 3.9 H (0.6-1.2) mg/dL Glucose 103 H (65-100) mg/dL Calcium 8.4 (8.4-10.2) mg/dL - Imaging and Cardiology EKG: report reviewed, image reviewed Echo: report reviewed - Telemetry EKG Rhythm: Atrial Fibrillation - EKG Supraventricular dysrhythmia: atrial fibrillation Ventricular dysrhythmias: ventricular premature com Repolarization changes or abnormalities: nonspecific abnormality, ST segment, and/or T wave Myocardial infarction: septal MT (old age or ind - Allied health notes Allied health notes reviewed: nursing
--- NOTE | 2021-12-08 11:38 | Progress Note ---
Assessment and Plan Assessment and plan: 66 YO Female with Obesity was attending [facility] services when the patient collapsed and lost consciousness. Witnesses began CPR. EMS was notified and upon arrival the patient was found to be in distress without perfusing cardiac rhythm. Patient initiated on ACLS protocol and subsequently intubated in the field and transported to ED. The patient regained spontaneous circulation during transport. She was found to have acute hypoxemic respiratory failure, septic shock suspected secondary to aspiration pneumonia, metabolic acidosis, toxic metabolic encephalopathy, shock liver, and cardiac arrest with return of perfusing cardiac rhythm after initiation of ACLS protocol. Patient initiated on sepsis protocol as well as pneumonia protocol. Patient admitted to ICU. Patient improved, extubated on 11/11 and transferred to floor on 11/19. s/p cardiac arrest, collapse at [facility], HFrEF, shock/hypotension resolved Atrial fibrillation/atrial flutter -Cardiac arrest and collapse at [facility] with ROSC -Cardiology consulted, appreciate recommendations - S/p Cardizem gtt- d/c due to low EF; now on PO Amio -s/p vasopressor support with levophed -Echocardiogram shows left ventricular systolic function severely decreased, LVEF 25 to 30%, no pericardial effusion -proBNP 5622 -Continue Lasix 20 mg twice daily, BB, spironolactone, losartan -No significant volume overload clinically Acute hypoxic respiratory failure, right pneumothorax, Angioedema (resolved), pulmonary edema -[facility] consulted, appreciate recommendations -Intubated on 10/29 and extubated on 11/11 -Bipap q HS and prn, at high risk for KOLBY with morbid obesity -NC during day -s/p right chest tube for pneumothorax -s/p steroids for angioedema -On Lasix for pulmonary edema. Transaminitis likely shocked liver - resolved Acute kidney injury likely secondary to vasomotor nephropathy, hypernatremia -Nephrology consulted, appreciate recommendations -Krishna replaced 11/05 urinary retention -FeNa 0.05 indicating pre-renal -SIERRA and hyponatremia resolved. Creatinine 1.0 on Lasix IV Shock cardiogenicsuspected sepsis -Fever was as high as 102 with a leukocytosis Blood, urine and sputum cultures negative -COVID-19 PCR negative -S/p empiric antibiotic therapy for possible pneumonia with Rocephin and azithromycin () -S/p Levophed gtt for hypotension -Fever and leukocytosis resolved -Monitor WBC and temperature curve Acute Metabolic encephalopathy, agitation/anxiety -Etiology likely from a cardiac arrest, shock and cerebral hypoperfusion CT head no acute focal parenchymal lesion in the brain -Neurology consulted, appreciate recommendations -EEG and MRI noted, Neuro recommend to cut down on sedation as possible Mental status significantly improved, currently fairly alert and oriented. Answers appropriately. Acute DVT in the left posterior tibial vein and bilateral peroneal veins, Anemia, retroperitoneal bleed -D-dimer greater than 10,000 -CTA chest with no evidence of PE -Bilateral lower extremity ultrasound positive for DVT -Heparin gtt on hold d/t anemia, received PRBC x4 -vasuclar surgery consulted, appreciate recommendations -recommended multiphasic CT angio of the abdomen and pelvis with and without contrast if H/H drops and did not recommend IVC filter at this time as the DVTs are infrapopliteal and recommends a follow-up DVT study weekly for 2 weeks. Repeat venous duplex ultrasound on 11/21 showed progression of left peroneal DVT extending into popliteal vein. Vascular surgery completed IVC filter placement on 11/22. -Trend CBC -SCDs to BLE while in bed -Transfuse hemoglobin less than 7 -Monitor for signs of bleeding -Hemoglobin stable, 8.6 Hypertension, not able be controlled Increase losartan 200 mg daily and add hydralazine as needed. Hyperglycemia ,resolved) -Avoid hypoglycemia -Hbg A1C 6.7 -SSI and lantus q hs (titrate as needed) -Accu-Cheks q. 6 Morbid obesity High risk for KOLBY On nightly BiPAP Deconditioning PT/OT Hospital Course to Date: 10/30: Intubated and sedated, on fentanyl gtt. Open eyes spontaneously but does not follow any commands. On vasopressors, titrate as tolerated for MAP above 65. Patient febrile overnight, continue empiric IV Abx, culture data and COVID PCR pending. Patient is also s/p CT placement due to spontaneous pneumothorax. 2D echo is pending and Cardiology is consulted. 10/31: Patient remains intubated and following commands. Levophed drip stopped and potassium repleted. Patient started on tube feeding. Remains in soft bilateral restraints. 11/01: RN noted ST changes on BSM and 12 lead EKG obtained which showed ST. Given Ativan 1mg for agitation as she is maxed on fentanyl drip and IV push fentanyl did not seem to help. Patient was started on CPAP this morning by RT but remained on fentanyl drip and was having periods of apnea. Plan was to retry CPAP again in the p.m. with sedation off. 11/02: Rate increased r/t hypercapnea on ABG, sedation reduced. Given kionex for hyperkalemia and was started on levophed overnight for hypotension. 11/03: Overnight patient had tachycardia and was given Cardizem and Lopressor. Lopressor was repeated in the a.m. due to tachycardia. Patient will be started on amiodarone with a bolus per cardiology. Patient started on normal saline per liter per [facility] and steroids for angioedema. Noted to have bright red blood when suctioned from oh ETT. Remains on heparin drip as H/H is stable for now. Will reevaluate. Fentanyl drip was restarted last night due to agitation. Dr. Flores updated family today 11/04: Patient was sedated on fentanyl however off sedation is able to follow commands, a.m. labs completed in the p.m. and show hyperkalemia with increased renal function studies. Nephrology, neurology consulted by [facility]. Given Kayexalate, insulin and D50 for hyperkalemia. Patient remains on amiodarone. 11/05: Patient needed to be sedated on fentanyl again to today. overnight krishna was replaced. Hyperkalemia->given kionex 60 for 5.6. Repeat K 6-> Dr. Grant informed and requested bumex, kionex, insulin, d50, calcium gluconate and sodium bicarb with repeat BMP in 2 hours which were placed. HR remains elevated. 11/06: Patient remained in atrial fibrillation/atrial flutter with heart rate in the 150s despite being on amnio drip and was given amnio bolus, Cardizem bolus and started on Cardizem drip by cardiology. Patient is on beta-blockers p.o. scheduled and to feedings changed to Nepro. Kayexalate was given in the morning by nephrology due to hyperkalemia. 11/07: Patient is only responsive to mild stimuli, precedex added in an attempt to wean off fentanyl gtt to better assess her mental status. Neurology also on consult, pending MRI and EEG. Patient remains in Aflutter this am, HR in the 80 to 90s, still on amiodarone and heparin gtt. 11/08: Fentanyl gtt is off, only on precedex gtt. Patient is still not following any commands. MRI brain and EEG completed. Neuro recommendations noted, sedatives agents decreased. FWF added for hypernatremia and low K repleted, repe at labs ordered. Placed a call and spoke with patient's daughter, Eva Brown . She was updated on patient's conditions and status. All questions and concerns were voiced at this time. 11/09: Patient is awake and alert this am, following commands and appropriate. Remains on precedex gtt, plan for possible PST today. Hypertensive overnight, meds adjusted by Cardio and PRN Hydralazine added for SBP greater than 160. CT dislodged overnight, CXR is stable with no significant change. F/U CXR in the am. Patient's daughter, Eva Brown, visited with patient. She was updated on patient's status and goal of care for today. All questions and concerns were voiced at this time. 11/10: Mentation remains intact, still on precedex gtt. This am CXR noted still with fluid overload s/p X1 dose of IV lasix, good response from IV lasix overnight. Hypernatremia improved, D5W d/dayday. Still with persistent hypokalemia, continue electrolytes replacement and frequent lab check. Daily IV lasix and aldactone added by Cardio. Patient is also with persistent low grade fevers overnight, leukocytosis with mild improvement this am. Will get a repeat sputum culture, hold off on IV abx for now. Consider ID consult if fevers and leukocytosis persist. Patient tolerated PST X4hrs yesterday. PST again today, plan to wean to extubate if tolerated. 11/11: IAM overnight. Off precedex gtt and tolerated PST this am. Plan to wean to extubate today. Additional IV lasix given, plan to keep patient at a net negative balance for better lung compliance. F/U CXR in the am. K improved this am, repeat BMP this afternoon since diuresing. Remains with low grade fevers, leukocytosis downtrending, will continue to monitor. Speech/PT/OT ordered 11/12: S/p extubation, now stable on 3L NC. This am CXR noted with no significant changes, lasix changed to IV X4days BID. Drop in H&H this am, and Lt. flank ecchymosis noted. Heparin gtt on hold for now and orders placed for 1 unit of PRBCs and Ct Abd/Pelvis w/o con to r/o retroperitoneal bleed. Pending speech swallow eval, keep patient NPO for now. Patient is stable for IMCU status 11/13: Patient with increased WOB and tachycardia this am, patient was placed on Bipap and precedex gtt was resumed. CXR with mild improvement. CT Abd/Pelvis also reviewed large hematomas noted at the Lt. retroperitoneum and left posterior lateral abdominal wall. Heparin gtt is already on hold, patient is hemodynamically stable. Vascular Surgery consulted for possible IVC filter eval. Patient s/p 2units of PRBCs, will continue to trend H&H and transfuse if hbg is less than 7. Worsening renal function this am, IF diuretic on hold for now. Patient is also febrile with spike in wbcs most likely reactive to bleed, will panculture and hold off on IV Abx for now. Patient also failed speech bedside swallow eval yesterday, NGT in placed plan to resume enteral nutrition 11/14: Patient had bilateral lower extremity Doppler ultrasound and vascular surgery has recommended multiphasic CT angio of the abdomen and pelvis with and without contrast if H/H drops and does not recommend IVC filter at this time as the DVTs are infrapopliteal and recommends a DVT study weekly for 2 weeks. FWF 250 q4 ml per nephro. Started on as needed Xanax and p.o. amiodarone. She did not pass her ST evaluation today. Will be transferred to [facility]. 11/15: Resting comfortably on encounter. Speech cleared for pureed diet. Remains on 3l satting 98 % on bedside encounter. Does not appear to be in respiratory distress. Will continue to hold AC, No ivc filter planned at this time. qweekly doppler to monitor for migration of DVT per vascular. If demonstrated, will consider IVC filter. CBC ordered for tomorrow, will continue monitoring in light of retroperitoneal hematoma. FWF increased by nephrology to 350cc q4hr d/t hypernatremia. UOP/renal function both improved. D/w cardiology, will continue amiodorone an additional 24hrs. Plan to change dosing of metoprolol. Continue to wean off of precedex. Continue xanax scheduled for anxiety. physical therapy recs noted, fernanda / ltac will discuss with CM. Continue IMCU monitoring. 11/16: Pulmonary congestion this AM. CXR ordered. Lasix 40 mg IV x 1 order this AM. Will monitor for 24 hrs. potential downgrade to medical floor tomorrow. 11/17: Persisting pulmonary congestion, was on bipap overnight into this AM. Will order additional lasix 40 mg IV x 2. CXR ordered for AM. Possible downgrade to floor tomorrow. Anticipate d/c sunday. 11/18: Patient seen and examined, continue weaning, will continue diuresis BID, discussed with daughter. 11/19: Patient seen and examined this morning doing well no acute distress noted. Lasix was increased to twice daily to 20 mg IV. Clinically improving. Patient will be transferred to telemetry today can be switched to Lasix p.o. twice daily in a.m. She has her weekly Doppler of lower extremity tomorrow vascular is following for this. She was taken off anticoagulation secondary to retroperitoneal bleed., The anticoagulation was started initially for atrial fibrillation and an infrapopliteal DVT. During her hospital stay she had a prolonged ventilator management and was successfully weaned off. She also received a total of 4 units of packed red blood cell. Hemoglobin has remained stable. Anticipate discharge in next 48 hours if continues to clinically stay stable. : Transferred from ICU on 11/19. Progressive improving. Currently awake and oriented. O2 weaned to 4 L. Hemodynamically stable. BP control being optimized. MiraLAX for constipation. Hemoglobin stable on the heparin infusion, being monitored closely with history of retroperitoneal bleed. 11/21: Patient remains mostly bedridden. She is awake and oriented on 2 L of O2. Repeat ultrasound showed extension of left peroneal DVT into popliteal vein. Heparin was discontinued for significant retroperitoneal bleed and off anticoagulation since. Vascular surgery plan for placement of IVC filter tomorrow. Patient is chest pains, palpitations, hemoptysis. She has some cough. Left lower extremity pain likely from DVT better today. Discussed with the patient, nursing staff and vascular surgery. 11/22: The infrapopliteal vein thrombosis has propagated to the left popliteal vein. Vascular surgery to perform IVC filter placement today. 11/23: Vascular surgery placed IVC filter yesterday. Continue metoprolol 100 mg p.o. twice daily, Aldactone 25 mg p.o. daily and losartan 25 mg p.o. daily. Patient still requiring BiPAP (IPAP18, EPAP8) with FiO2 of 30%. Continue to wean oxygen per pulmonary recommendations. Nurse reports patient is having vaginal bleeding. We will check serial CBC and pelvic ultrasound 11/24: I discussed with cardiology yesterday the need for a LifeVest. LifeVest is ordered and pending. Patient is s/p IVC filter placement. Continue metoprolol 100 mg p.o. twice daily, Aldactone 25 mg p.o. daily and losartan 25 mg p.o. da amy. Patient still requiring BiPAP (IPAP18, EPAP8) with FiO2 of 30%. Continue to wean oxygen per pulmonary recommendations. No further reports of vaginal bleeding. Pelvic ultrasound negative 11/25: Awaiting for LifeVest. Patient is s/p IVC filter placement. Continue metoprolol 100 mg p.o. twice daily, Aldactone 25 mg p.o. daily and losartan 25 mg p.o. daily. Patient still requiring BiPAP (IPAP18, EPAP8) with FiO2 of 30%. Continue to wean oxygen per pulmonary recommendations. 11/26: Physical therapy recommends subacute rehab. Still awaiting LifeVest. Patient is s/p IVC filter placement. Continue metoprolol 100 mg p.o. twice daily, Aldactone 25 mg p.o. daily and losartan 25 mg p.o. daily. Patient still requiring BiPAP (IPAP18, EPAP8) with FiO2 of 30% at night. Continue to wean oxygen per pulmonary recommendations. Patient currently with 2 L O2. 11/27: Physical therapy recommends subacute rehab. Patient has a LifeVest. Patient's left lower extremity pain likely related to DVT. Continue pain control. Continue metoprolol 100 mg p.o. twice daily, Aldactone 25 mg p.o. daily and losartan 25 mg p.o. daily. Patient still requiring BiPAP (IPAP18, EPAP8) with FiO2 of 30% at night. 11/28: Physical therapy recommends subacute rehab. Patient has a LifeVest. Patient continues to complain of left lower extremity pain which makes it very difficult for ambulation. Continue Percocet for pain control. Add neurontin for possible neuropathy. Etiology is likely secondary to DVT. Continue metoprolol 100 mg p.o. twice daily, Aldactone 25 mg p.o. daily and losartan 25 mg p.o. daily. Patient still requiring BiPAP (IPAP18, EPAP8) with FiO2 of 30% at night. Repeated Doppler US of LLE and will ask vascular surgery to revisit. 11/29; worsening lower extremity DVTs, vascular following, on heparin drip 11/30; low-grade fever, leukocytosis, shortness of breath, chest x-ray possible left-sided pneumonia/possible healthcare associated pneumonia Blood cultures already sent, empiric antibiotic cefepime[renal dose confirmed with pharmacist] ID consult if needed 12/01; gram-positive bacteremia preliminary, add vancomycin 1 dose, repeat cultures, consult ID Worsening renal function, nephrology initiated hemodialysis today, patient is critically ill, very poor prognosis, with multiple comorbidities And critical issues. Beverage Server recommendations noted and appreciated 12/02; Gram positive bacteremia/possible HCAP and sepsis, on cefepime and 1 dose Vanco. Nephrology initiated hemodialysis, ID consult. Patient is hypotensive, pulmonary critical recommended transfer to ICU and start vasopressors for close observation overnight. Dr. Padron discussed with patient's daughter over patient's telephone and discussed in detail patient's condition, new developments sepsis, renal failure on hemodialysis anticoagulation for DVT and severe cardiomyopathy, also discussed poor prognosis, and the plans of transferring the patient to ICU for close observation. Many questions, and answered all of them. dr. Padron also discussed with granddaughter at the bedside and patient was moved to ICU, She had numerous questions answered all of them and discussed the current co ndition prognosis and treatment plan. She verbalized understanding 12/03: Patient was transferred to ICU yesterday evening for hypotension however she did not need to be started on any vasopressin therapy. Patient is on p.o. midodrine and all her antihypertensives have been held. She also received albumin bolus. Patient will be transferred to the floor today. Still complains of bilateral lower extremity pain. Patient is on cefepime and she is scheduled for dialysis today. 12/04: Some complaint of leg pain. Percocet given for pain control. Patient is very deconditioned, will need aggressive PT. Will work on d/c planning with cm. 12/05: Patient does not appear to be in distress this AM. tachycardic hr on encounter and overnight, was given diltiazem by manager practice. Cardiology initiated metoprolol and amiodorone on patient this morning. She denies any pain except for discomfort in left lower extremity. Controlled with percocet. She also states that she does not have any urine output and has been constipated. Will order bowel regimen. Discharge needs discussed with CM which include Lifevest, BIPAP for nightly use, and possible set up for dialysis. She was visiting on a visa to the from [place] however is technically a citizen of [place] which makes placement a continued challenge. 12/06: Case management reports patient will need LifeVest, walker, CPAP and arrangements for outpatient hemodialysis. However, patient is uninsured. I discussed with the daughter Eva plans for home hospice. Eva reports that she is willing to have hospice to obtain additional resources but is not wanting palliative care/comfort measures. 12/07: Awaiting LifeVest and outpatient HD arrangements. I d/w CM discharge planning. Pt still with heparin drip but amiodarone changed to p.o. 200mg BID. Cont. Metoprolol 50mg BID. Hold LAYO and ARB for renal fxn. Patient for outpatient ischemic evaluation per Cardiology. Leukocytosis likely related to retroperitoneal hematoma. ID wants to monitor off abx. 12/08: Awaiting LifeVest and outpatient HD arrangements. I d/w CM discharge planning. Pt still with heparin drip. Await cardiology recommendations to transition to p.o. anticoagulation. Patient for outpatient ischemic evaluation per Cardiology. Leukocytosis likely related to retroperitoneal hematoma. Continue to monitor off antibiotics. Continue volume management per nephrology with hemodialysis History Interval history: No new issues overnight. Hospitalist Physical - Constitutional Vitals: Temp Pulse Resp BP Pulse Ox 97.7 F 115 H 30 H 135/82 100 12/08/21 10:10 12/08/21 10:16 12/08/21 10:10 12/08/21 10:16 12/08/21 10:10 General appearance: Present: no acute distress, well-nourished, obese (Morbidly obese), other - EENT Eyes: Present: PERRL, EOM intact ENT: hearing intact, clear oral mucosa, dentition normal - Neck Neck: Present: supple, normal ROM - Respiratory Respiratory effort: normal Respiratory: bilateral: CTA - Cardiovascular Rhythm: regular Heart Sounds: Present: S1 & S2. Absent: gallop, rub - Extremities Extremities: no ischemia, No edema, Full ROM - Abdominal General gastrointestinal: soft, non-tender, non-distended, normal bowel sounds - Integumentary Integumentary: Present: clear, warm, dry - Neurologic Neurologic: CNII-XII intact, moves all extremities HEART Score - HEART Score Troponin: Troponin T 1.150 ng/mL (0.00-0.029) H* D 10/29/21 22:34 Results - Labs CBC & Chem 7: 12/08/21 04:53 12/08/21 04:53 Labs: Laboratory Last Values WBC 24.2 K/mm3 (4.5-11.0) H 12/08/21 04:53 RBC 2.71 M/mm3 (3.65-5.03) L 12/08/21 04:53 Hgb 7.6 gm/dl (10.1-14.3) L 12/08/21 04:53 Hct 24.1 % (30.3-42.9) L 12/08/21 04:53 MCV 89 fl (79-97) 12/08/21 04:53 MCH 28 pg (28-32) 12/08/21 04:53 MCHC 32 % (30-34) 12/08/21 04:53 RDW 16.7 % (13.2-15.2) H 12/08/21 04:53 Plt Count 114 K/mm3 (140-440) L 12/08/21 04:53 Lymph % (Auto) 11.1 % (13.4-35.0) L 11/29/21 13:51 Crenshaw % (Auto) 15.5 % (0.0-7.3) H 11/29/21 13:51 Eos % (Auto) 1.0 % (0.0-4.3) 11/29/21 13:51 Baso % (Auto) 0.6 % (0.0-1.8) 11/29/21 13:51 Lymph # (Auto) 1.4 K/mm3 (1.2-5.4) 11/29/21 13:51 Crenshaw # (Auto) 2.0 K/mm3 (0.0-0.8) H 11/29/21 13:51 Eos # (Auto) 0.1 K/mm3 (0.0-0.4) 11/29/21 13:51 Baso # (Auto) 0.1 K/mm3 (0.0-0.1) 11/29/21 13:51 Add Manual Diff Complete 12/08/21 04:53 Total Counted 100 12/08/21 04:53 Seg Neutrophils % 71.8 % (40.0-70.0) H 11/29/21 13:51 Seg Neuts % (Manual) 76.0 % (40.0-70.0) H 12/08/21 04:53 Band Neutrophils % 0 % 12/08/21 04:53 Lymphocytes % (Manual) 14.0 % (13.4-35.0) 12/08/21 04:53 Reactive Lymphs % (Man) 0 % 12/08/21 04:53 Monocytes % (Manual) 6.0 % (0.0-7.3) 12/08/21 04:53 Eosinophils % (Manual) 4.0 % (0.0-4.3) 12/08/21 04:53 Basophils % (Manual) 0 % (0.0-1.8) 12/08/21 04:53 Metamyelocytes % 0 % 12/08/21 04:53 Myelocytes % 0 % 12/08/21 04:53 Promyelocytes % 0 % 12/08/21 04:53 Blast Cells % 0 % 12/08/21 04:53 Nucleated RBC % 1.0 % (0.0-0.9) H 12/08/21 04:53 Seg Neutrophils # 9.3 K/mm3 (1.8-7.7) H 11/29/21 13:51 Seg Neutrophils # Man 18.4 K/mm3 (1.8-7.7) H 12/08/21 04:53 Band Neutrophils # 0.0 K/mm3 12/08/21 04:53 Lymphocytes # (Manual) 3.4 K/mm3 (1.2-5.4) 12/08/21 04:53 Abs React Lymphs (Man) 0.0 K/mm3 12/08/21 04:53 Monocytes # (Manual) 1.5 K/mm3 (0.0-0.8) H 12/08/21 04:53 Eosinophils # (Manual) 1.0 K/mm3 (0.0-0.4) H 12/08/21 04:53 Basophils # (Manual) 0.0 K/mm3 (0.0-0.1) 12/08/21 04:53 Metamyelocytes # 0.0 K/mm3 12/08/21 04:53 Myelocytes # 0.0 K/mm3 12/08/21 04:53 Promyelocytes # 0.0 K/mm3 12/08/21 04:53 Blast Cells # 0.0 K/mm3 12/08/21 04:53 WBC Morphology Not Reportable 12/08/21 04:53 Hypersegmented Neuts Not Reportable 12/08/21 04:53 Hyposegmented Neuts Not Reportable 12/08/21 04:53 Hypogranular Neuts Not Reportable 12/08/21 04:53 Smudge Cells Not Reportable 12/08/21 04:53 Toxic Granulation Not Reportable 12/08/21 04:53 Toxic Vacuolation Not Reportable 12/08/21 04:53 Dohle Bodies Not Reportable 12/08/21 04:53 Pelger-Huet Anomaly Not Reportable 12/08/21 04:53 Manny Rods Not Reportable 12/08/21 04:53 Platelet Estimate Consistent w auto 12/08/21 04:53 Clumped Platelets Not Reportable 12/08/21 04:53 Plt Clumps, EDTA Not Reportable 12/08/21 04:53 Large Platelets Not Reportable 12/08/21 04:53 Giant Platelets Not Reportable 12/08/21 04:53 Platelet Satelliting Not Reportable 12/08/21 04:53 Plt Morphology Comment Not Reportable 12/08/21 04:53 RBC Morphology Not Reportable 12/08/21 04:53 Dimorphic RBCs Not Reportable 12/08/21 04:53 Polychromasia Not Reportable 12/08/21 04:53 Hypochromasia 1+ 12/08/21 04:53 Poikilocytosis Not Reportable 12/08/21 04:53 Anisocytosis 1+ 12/08/21 04:53 Microcytosis Not Reportable 12/08/21 04:53 Macrocytosis Not Reportable 12/08/21 04:53 Spherocytes Not Reportable 12/08/21 04:53 Pappenheimer Bodies Not Reportable 12/08/21 04:53 Sickle Cells Not Reportable 12/08/21 04:53 Target Cells Not Reportable 12/08/21 04:53 Tear Drop Cells Not Reportable 12/08/21 04:53 Ovalocytes Not Reportable 12/08/21 04:53 Helmet Cells Not Reportable 12/08/21 04:53 [place] Bodies Not Reportable 12/08/21 04:53 [place] Rings Not Reportable 12/08/21 04:53 [place] Cells Not Reportable 12/08/21 04:53 Bite Cells Not Reportable 12/08/21 04:53 Crenated Cell Not Reportable 12/08/21 04:53 Elliptocytes Not Reportable 12/08/21 04:53 Acanthocytes (Spur) Not Reportable 12/08/21 04:53 Rouleaux Not Reportable 12/08/21 04:53 Hemoglobin C Crystals Not Reportable 12/08/21 04:53 Schistocytes Not Reportable 12/08/21 04:53 Malaria parasites Not Reportable 12/08/21 04:53 Magdy Bodies Not Reportable 12/08/21 04:53 Hem Pathologist Commnt No 12/08/21 04:53 PT 17.2 Sec. (12.2-14.9) H 10/30/21 16:30 INR 1.27 (0.87-1.13) H 10/30/21 16:30 APTT 44.4 Sec. (24.2-36.6) H 10/30/21 16:30 D-Dimer > 64462 ng/mlDDU (0-234) H 10/30/21 Unknown Heparin Anti-Xa Level 0.94 U.I./ml (0.3-0.7) H 12/08/21 08:56 ABG pH 7.450 pH Units (7.350-7.450) 12/01/21 Unknown ABG pCO2 38.0 mm Hg 12/01/21 Unknown ABG pO2 88.9 mm Hg (80.0-90.0) 12/01/21 Unknown ABG HCO3 25.8 mmol/L (20.0-26.0) 12/01/21 Unknown ABG O2 Saturation 97.2 % (95.0-99.0) 12/01/21 Unknown ABG O2 Content 19.4 (0.0-44) 12/01/21 Unknown ABG Base Excess 1.9 mmol/L (-2.0-3.0) 12/01/21 Unknown ABG Hemoglobin 14.3 gm/dl (12.0-16.0) 12/01/21 Unknown ABG Carboxyhemoglobin 1.0 % (0.0-5.0) 12/01/21 Unknown ABG Methemoglobin 0.5 % (0.0-1.5) 12/01/21 Unknown Oxyhemoglobin 95.8 % (95.0-99.0) 12/01/21 Unknown FiO2 21 % 12/01/21 Unknown Sodium 128 mmol/L (137-145) L 12/08/21 04:53 Potassium 4.6 mmol/L (3.6-5.0) 12/08/21 04:53 Chloride 93.1 mmol/L (98-107) L 12/08/21 04:53 Carbon Dioxide 21 mmol/L (22-30) L 12/08/21 04:53 Anion Gap 19 mmol/L 12/08/21 04:53 BUN 39 mg/dL (7-17) H 12/08/21 04:53 Creatinine 3.9 mg/dL (0.6-1.2) H 12/08/21 04:53 Estimated GFR 14 ml/min 12/08/21 04:53 BUN/Creatinine Ratio 10 % 12/08/21 04:53 Glucose 103 mg/dL (65-100) H 12/08/21 04:53 POC Glucose 102 mg/dL (70-105) 12/08/21 08:01 Hemoglobin A1c 6.7 % (4-6) H 10/31/21 04:30 Lactic Acid 0.70 mmol/L (0.7-2.0) 10/31/21 15:45 Calcium 8.4 mg/dL (8.4-10.2) 12/08/21 04:53 Phosphorus 5.20 mg/dL (2.5-4.5) H 12/02/21 03:22 Magnesium 1.60 mg/dL (1.7-2.3) L 11/19/21 14:38 Ferritin 208.4 ng/mL (10.0-200.0) H 10/30/21 Unknown Total Bilirubin < 0.20 mg/dL (0.1-1.2) 11/06/21 02:35 AST 21 units/L (5-40) 11/06/21 02:35 ALT 77 units/L (7-56) H 11/06/21 02:35 Alkaline Phosphatase 84 units/L (35-129) 11/06/21 02:35 Ammonia 31.0 umol/L (25-60) 10/29/21 15:10 Lactate Dehydrogenase 469 units/L (91-180) H 10/30/21 Unknown Troponin T 1.150 ng/mL (0.00-0.029) H* D 10/29/21 22:34 C-Reactive Protein 13.40 mg/dL (0.00-1.30) H 10/30/21 Unknown Total Protein 6.3 g/dL (6.3-8.2) 11/06/21 02:35 Albumin 3.0 g/dL (3.9-5) L 11/06/21 02:35 Albumin/Globulin Ratio 0.9 % 11/06/21 02:35 Triglycerides 68 mg/dL (2-149) 10/29/21 19:40 Cholesterol 98 mg/dL (50-199) 10/29/21 19:40 LDL Cholesterol Direct 43 mg/dL (50-130) L 10/29/21 19:40 HDL Cholesterol 50 mg/dL (40-59) 10/29/21 19:40 Cholesterol/HDL Ratio 1.96 % 10/29/21 19:40 Procalcitonin 61.95 ng/mL (<0.15) 10/30/21 Unknown TSH 3.080 mlU/mL (0.270-4.200) 10/29/21 15:10 Urine Color Yellow (Yellow) 11/13/21 08:30 Urine Turbidity Slightly-cloudy (Clear) 11/13/21 08:30 Urine pH 6.0 (5.0-7.0) 11/13/21 08:30 Ur Specific [place] 1.010 (1.003-1.030) 11/13/21 08:30 Urine Protein <15 mg/dl mg/dL (Negative) 11/13/21 08:30 Urine Glucose (UA) Neg mg/dL (Negative) 11/13/21 08:30 Urine Ketones Tr mg/dL (Negative) 11/13/21 08:30 Urine Blood Sm (Negative) 11/13/21 08:30 Urine Nitrite Neg (Negative) 11/13/21 08:30 Urine Bilirubin Neg (Negative) 11/13/21 08:30 Urine Urobilinogen < 2.0 mg/dL (<2.0) 11/13/21 08:30 Ur Leukocyte Esterase Neg (Negative) 11/13/21 08:30 Urine WBC (Auto) < 1.0 /HPF (0.0-6.0) 11/13/21 08:30 Urine RBC (Auto) < 1.0 /HPF (0.0-6.0) 11/13/21 08:30 U Epithel Cells (Auto) < 1.0 /HPF (0-13.0) 11/13/21 08:30 Urine Mucus Few /HPF 10/29/21 18:15 Urine Eosinophils None seen (None Seen) 11/04/21 Unknown Urine Creatinine 190.9 mg/dL (0.1-20.0) H 11/04/21 Unknown Protein/Creatinin Ratio 0.90 11/04/21 Unknown Urine Sodium 10 mmol/L 11/04/21 Unknown Urine Total Protein 172 mg/dL (5-11.8) H 11/04/21 Unknown Salicylates < 0.3 mg/dL (2.8-20.0) L 10/29/21 15:10 Urine Opiates Screen Negative 10/29/21 18:15 Urine Methadone Screen Negative 10/29/21 18:15 Acetaminophen 5.0 ug/mL (10.0-30.0) L 10/29/21 15:10 Ur Barbiturates Screen Negative 10/29/21 18:15 Ur Phencyclidine Scrn Negative 10/29/21 18:15 Ur Amphetamines Screen Negative 10/29/21 18:15 U Benzodiazepines Scrn Negative 10/29/21 18:15 Urine Cocaine Screen Negative 10/29/21 18:15 U Marijuana (THC) Screen Negative 10/29/21 18:15 Drugs of Abuse Note Disclamer 10/29/21 18:15 Plasma/Serum Alcohol < 0.01 % (0-0.07) 10/29/21 15:10 Coronavirus (PCR) Negative (Negative) 10/30/21 Unknown Hepatitis A IgM Ab Non-reactive (NonReactive) 12/01/21 19:36 Hep Bs Antigen Non-reactive (Negative) 12/01/21 19:36 Hep B Core IgM Ab Non-reactive (NonReactive) 12/01/21 19:36 Hepatitis C Antibody Non-reactive (NonReactive) 12/01/21 19:36 Blood Type O POSITIVE 11/12/21 04:15 Antibody Screen Negative 11/12/21 04:15 Crossmatch See Detail 11/12/21 04:15 Krishna/IV: Voiding Method Bedpan Active Medications - Current Medications Current Medications: Generic Name Dose Route Start Last Admin Trade Name Freq PRN Reason Stop Dose Admin Acetaminophen 650 mg 10/29/21 17:04 11/12/21 22:53 Acetaminophen 650 Mg Rect Supp [place] 650 mg Q6H PRN Administration Pain MILD(1-3)/Fever >100.5/NIEVES Acetaminophen 650 mg 11/19/21 16:35 12/02/21 18:20 Acetaminophen 325 Mg Tab PO 650 mg Q6HR PRN Administration PAIN Albumin Human 50 gm 12/02/21 11:00 12/02/21 11:55 Albumin Human 25% (25 Gm/100 Ml) Inj IV 50 gm ZACH PRN Administration Hypotension Alprazolam 0.25 mg 11/14/21 14:29 12/07/21 12:00 Alprazolam 0.25 Mg Tab PO 0.25 mg Q8H PRN Administration Anxiety Amiodarone HCl 200 mg 12/06/21 12:00 12/08/21 09:51 Amiodarone 200 Mg Tab PO 200 mg BID RAMON Administration Docusate Sodium 100 mg 11/18/21 15:00 12/08/21 09:54 Docusate Sodium 100 Mg Cap PO 100 mg BID RAMON Administration Epoetin [place]-epbx 10,000 unit 12/06/21 10:00 12/07/21 15:30 Epoetin [place]-Epbx 10,000 Unit/1 Ml Vial IV 10,000 unit ZACH PRN Administration hemodialysis Famotidine 10 mg 11/06/21 10:00 12/08/21 09:54 Famotidine 10 Mg Tab PO 10 mg BID RAMON Administration Gabapentin 100 mg 11/28/21 14:00 12/08/21 05:28 Gabapentin 100 Mg Cap PO 100 mg Q8HR RAMON Administration Heparin Sodium (Porcine) 4,000 unit 12/01/21 07:50 12/02/21 17:22 Heparin 10,000 Units/10 Ml Vial 40 unit/kg (4300 unit) 4,000 unit IV Administration Q6H PRN Anti-Xa Assay < 0.1 units/ml Hydrophilic Ointment 1 applic 10/29/21 14:29 11/09/21 08:51 Lip Therapy Vaseline TP 1 applic Q2HR PRN Administration Dry Lips Heparin Sodium/Sodium Chloride 25,000 unit in 500 mls @ 30 mls/hr 11/28/21 17:00 12/08/21 09:57 Heparin/ 0.45% Nacl-25,000 Unit/500 Ml IV 1,950 units/hr TITR RAMON 39 mls/hr Administration Protocol 1,500 UNITS/HR Sodium Chloride 100 mls @ 999 mls/hr 12/01/21 14:44 Nacl 0.9% IV ZACH PRN Hypotension Insulin Human Lispro 0 unit 11/25/21 22:00 12/08/21 08:00 Insulin Lispro 100 Unit/Ml SUB-Q Not Given ACHS [facility] Protocol Lactulose 20 gm 11/18/21 14:43 12/06/21 15:26 Lactulose 20 Gm/30 Ml Oral Liqd PO 20 gm Q6H PRN Administration Constipation Losartan Potassium 25 mg 12/08/21 12:00 Losartan 25 Mg Tab PO QDAY [facility] Melatonin 10 mg 11/22/21 17:31 12/05/21 22:38 Melatonin 5 Mg Tab PO 10 mg QHS PRN Administration Sleep Metoprolol Tartrate 100 mg 12/07/21 11:00 12/08/21 10:16 Metoprolol Tartrate 50 Mg Tab PO 100 mg BID [facility] Administration Midodrine 10 mg 12/01/21 12:00 12/08/21 10:18 Midodrine 5 Mg Tab PO Not Given TID@0800,1200,1600 [facility] Morphine Sulfate 1 mg 11/28/21 15:00 12/03/21 21:43 Morphine 2 Mg/1 Ml Inj IV 1 mg Q4H PRN Administration Pain, Moderate (4-6) Multi-Ingred Cream/Lotion/Oil/Oint 1 applic 10/29/21 14:29 11/06/21 09:25 Mineral Oil/Petrolatum, White Ophth Oint 3.5 Gm OU 1 applic Q4HR PRN Administration Dry Eye(s) Oxycodone/Acetaminophen 1 tab 11/27/21 14:31 12/05/21 22:39 Oxycodone /Acetaminophen 5-325mg Tab PO 1 tab Q4H PRN Administration Pain, Moderate (4-6) Polyethylene Glycol 17 gm 11/20/21 12:47 12/08/21 09:54 Polyethylene Glycol 3350 17 Gm Powder PO 17 gm QDAY PRN Administration Constipation Senna/Docusate Sodium 1 tab 11/16/21 22:00 12/08/21 09:52 Sennosides/Docusate Sodium 8.6/50 Mg Tab PO 1 tab BID RAMON Administration Sodium Chloride 10 ml 10/29/21 22:00 12/08/21 10:23 Sodium Chloride 0.9% 10 Ml Flush Syringe IV 10 ml BID RAMON Administration Sodium Chloride 10 ml 10/29/21 17:04 Sodium Chloride 0.9% 10 Ml Flush Syringe IV PRN PRN LINE FLUSH Nutrition/Malnutrition Assess - Dietary Evaluation Nutrition/Malnutrition Findings: Nutrition Notes Start: 10/30/21 09:50 Freq: Status: Active Protocol: Document 12/05/21 17:37 MEENU (Rec: 12/05/21 17:55 MEENU [id number]) Nutrition Notes Initial or Follow up Brief Note Current Diagnosis Acute Kidney Injury,Sepsis, Hypertension Other Pertinent Diagnosis s/p cardiac arrest, anemia Current Diet Renal -mech Soft- Diet + D Supplement (since D 12/02). Height 5 ft 10 in Weight 114.8 kg [place] Body Weight (kg) 68.18 BMI 36.3 Weight change and time frame No body weight change reported in 3 days. Weight Status Obese Subjective/Other Information RD consult for routine F/U on Dietary tolerance. Pt's PO intake of meals has improved to 75% and well tolerated, according to ADL notes. Pt still receiving vasopressors. Percent of energy/protein needs met: Prescribed Renal Diet provides for energy/protein needs (2, 072 Kcal/77 g) during LOS; additionally, Dietary Supplements will compensate for possible poor or insufficient PO intake of meals with 425 Kcal and 19 g of protein. Current % PO Good (75-100%) #1 Nutrition Diagnosis Inadequate oral intake Comments: Pt's PO intake of meals has been at 75%, and well tolerated, according to ADL notes. Diet advanced to Renal - mechanical soft-. Diagnosis Progress(for reassessment Improved documentation) Is patient on ventilator? No Is Patient Ambulatory and/or Out of Bed No REE-([place]-St. Jeor-confined to bed) 2120.952 Kcal/Kg value to use for calculation 14 Approximate Energy Requirements Using 1607 kcal/Kg Calculation Used for Recommendations Kcal/kg Additional Notes Protein: >1.2 g/Kg AdjBW; >110 g/day. Fluids: 1-1.5 L/day, or as per MD. Nutrition Intervention Change Diet Order: Continue Renal -mechanical soft- Diet. Add Supplement/Snack (indicate name/kcal Nepro once daily (vanilla) /protein ) Provides kCal: 425 Provides Protein (gm) 19 Goal #1 Compensate, through dietary supplementation, for possible poor or insufficient PO intake of meals during LOS. Goal #2 Facilitate PO intake of meals with mechanical modification during LOS. Goal #3 Maintain body weight within +/ -3% of admission body weight during LOS. Follow-Up By: 12/13/21 Additional Comments Continue monitoring food tolerance, %PO intake of meals , and BM.
[2021-12-08] MEDS ORDERED: LOSARTAN 25 MG TAB PO SCH (12:00)
--- NOTE | 2021-12-08 12:46 | Progress Note ---
Assessment and Plan Cultures: 10/29/2021 sputum culture: Usual respiratory giorgio 10/29/2021 urine culture: No growth 10/29/2021 blood culture: No growth 11/01/2021 tracheal aspirate culture: No growth 11/10/2021 tracheal aspirate culture: Usual respiratory giorgio 11/13/2021 blood culture: No growth 11/29/2021 urine culture: Mixed giorgio 11/29/2021 blood culture: 1 out of 4 bottles positive for coag negative staph A/P: 66-year-old female past medical history obesity presented to the hospital after cardiac arrest: #Coagulase negative staph bacteremia: Likely contaminant, 1 of 4 bottles. #Acute leukocytosis: Possibly related to large subacute left-sided retroperitoneal hematoma. CT chest, abdomen and pelvis on 12/01/2021 did not reveal any other infectious etiology. #Retroperitoneal bleed #Rib fractures secondary to CPR #Acute DVT in the left posterior tibial vein and bilateral peroneal veins #S/P cardiac arrest #SIERRA on HD: Renally dose medications. Recs: -WBC worse, afebrile with non-focal exam. No diarrhea, no decubiti/skin wounds. No clear infectious etiology noted on imaging -if she spikes a fever, get blood cultures and start IV Cefepime + Vancomycin. For now, monitor off abx. Simran Marcelino MD, FACP, [facility] O: [phone] F: [phone] C: [phone] Subjective Date of service: 12/08/21 Principal diagnosis: AHRF; Cardiac arrest; R. pneumothorax; pneumonia; AMS; DVT's; SIERRA; Obesity Interval history: No fever. Denies any complaints except left foot pain. States her breathing is fair. No abdominal pain. Discussed with RN, no diarrhea, skin is intact, no wounds/decubiti. Objective - Exam Narrative Exam: Physical Exam: Constitutional: Alert, cooperative. No acute distress. Morbid obesity Head, Ears, Nose: Normocephalic, atraumatic. External ears, nose normal Eyes: Conjunctivae/corneas clear. No icterus. No ptosis. Neck: Supple, no meningeal signs Cardiovascular: S1, S2 + Respiratory: AE fair bilaterally GI: Soft, non-tender; bowel sounds normal. No peritoneal signs Musculoskeletal: 2+ b/l pedal edema. HD cath + Skin: No rash or abscess Hem/Lymphatic: No palpable cervical or supraclavicular nodes. No lymphangitis Psych: Mood ok. Affect normal Neurological: Awake, alert, oriented. No gross abnormality - Constitutional Vitals: Vital Signs Temp Pulse Resp BP Pulse Ox 98.1 F 70 20 121/82 100 12/08/21 11:21 12/08/21 11:21 12/08/21 11:21 12/08/21 11:21 12/08/21 11:21 Temperature -Last 24 Hours Temperature 98.1 F Temperature 97.7 F Temperature 97.5 F Temperature 98.8 F Temperature 97.5 F Temperature 99.2 F Temperature 98.3 F Temperature 98.2 F - Labs CBC & Chem 7: 12/08/21 04:53 12/08/21 04:53 Labs: Abnormal lab results 12/07/21 12/07/21 12/08/21 Range/Units 12:04 21:36 04:53 WBC (4.5-11.0) K/mm3 RBC (3.65-5.03) M/mm3 Hgb (10.1-14.3) gm/dl Hct (30.3-42.9) % RDW (13.2-15.2) % Plt Count (140-440) K/mm3 Seg Neuts % (Manual) (40.0-70.0) % Nucleated RBC % (0.0-0.9) % Seg Neutrophils # Man (1.8-7.7) K/mm3 Monocytes # (Manual) (0.0-0.8) K/mm3 Eosinophils # (Manual) (0.0-0.4) K/mm3 Heparin Anti-Xa Level (0.3-0.7) U.I./ml Sodium 128 L (137-145) mmol/L Chloride 93.1 L (98-107) mmol/L Carbon Dioxide 21 L (22-30) mmol/L BUN 39 H (7-17) mg/dL Creatinine 3.9 H (0.6-1.2) mg/dL Glucose 103 H (65-100) mg/dL POC Glucose 119 H 112 H (70-105) mg/dL 12/08/21 12/08/21 12/08/21 Range/Units 04:53 08:56 11:20 WBC 24.2 H (4.5-11.0) K/mm3 RBC 2.71 L (3.65-5.03) M/mm3 Hgb 7.6 L (10.1-14.3) gm/dl Hct 24.1 L (30.3-42.9) % RDW 16.7 H (13.2-15.2) % Plt Count 114 L (140-440) K/mm3 Seg Neuts % (Manual) 76.0 H (40.0-70.0) % Nucleated RBC % 1.0 H (0.0-0.9) % Seg Neutrophils # Man 18.4 H (1.8-7.7) K/mm3 Monocytes # (Manual) 1.5 H (0.0-0.8) K/mm3 Eosinophils # (Manual) 1.0 H (0.0-0.4) K/mm3 Heparin Anti-Xa Level 0.94 H (0.3-0.7) U.I./ml Sodium (137-145) mmol/L Chloride (98-107) mmol/L Carbon Dioxide (22-30) mmol/L BUN (7-17) mg/dL Creatinine (0.6-1.2) mg/dL Glucose (65-100) mg/dL POC Glucose 119 H (70-105) mg/dL
[2021-12-09] MEDS: HEPARIN/ 0.45% NACL DRIP 25,000 UNIT/500 ML BAG IV SCH ×2 (05:53→20:27)
[2021-12-09] MEDS: GABAPENTIN 100 MG CAP PO SCH ×3 (05:58→21:55)
[2021-12-09 07:49] LABS: Calcium 8.5 mg/dL (8.4-10.2)
[2021-12-09] MEDS ORDERED: SODIUM CHLORIDE 0.9% 250ML 0 ML ONE (08:21)
[2021-12-09] MEDS ORDERED: HEPARIN/NS 5000 UNIT/500ML 500 ML IR ONE (08:21)
[2021-12-09] MEDS ORDERED: LIDOCAINE (2%) 20 MG/1 ML VIAL 20 ML MDV INFILTRATI ONE (08:21)
[2021-12-09] MEDS ORDERED: MIDAZOLAM 2 MG/2 ML INJ ONE (09:11)
[2021-12-09] MEDS ORDERED: fentaNYL 100 MCG/2 ML INJ ONE (09:11)
--- NOTE | 2021-12-09 09:25 | Progress Note ---
Assessment and Plan Acute Renal Failure secondary to Ischemic ATN secondary to Sepsis, Cardiac arrest and Hypotension S/P Cardiac Arrest Acute Hypoxemic Respiratory Failure Acute DVT Sepsis CHF Anemia Hyperkalemia Hyponatremia Plan: HD today with higher Na bath to correct hyponatremia fluid restriction should be ordered after permcath is placed will stop losartan for now, she is hypotensive during HD and is requring 10 mg of Midodrine to maintain BP during the day On Midodrine 10 mg po TID CHF-LVEF 25-30 % Anemia-On Epogen 10,000 units TIW Obtain daily weights Strict I/O's daily Renally dose medications Avoid nephrotoxic agents Continue to monitor renal function closely Assess dialysis needs daily Subjective Date of service: 12/09/21 Principal diagnosis: AHRF; Cardiac arrest; R. pneumothorax; pneumonia; AMS; DVT's; SIERRA; Obesity Interval history: no overnight events Objective - Vital Signs Vital signs: Vital Signs - 12hr 12/08/21 12/08/21 12/09/21 22:00 23:31 03:46 Temperature 97.9 F 98.3 F Pulse Rate 45 L 51 L Respiratory 18 18 Rate Blood Pressure 118/68 109/66 O2 Sat by Pulse 97 97 99 Oximetry 12/09/21 12/09/21 04:00 08:00 Temperature 97.7 F Pulse Rate 51 L 54 L Respiratory 22 Rate Blood Pressure 112/60 O2 Sat by Pulse 100 Oximetry - Lab 12/08/21 04:53 12/09/21 07:05 Most recent lab results ABG pH 7.450 pH Units (7.350-7.450) 12/01/21 Unknown ABG pCO2 38.0 mm Hg 12/01/21 Unknown ABG pO2 88.9 mm Hg (80.0-90.0) 12/01/21 Unknown ABG HCO3 25.8 mmol/L (20.0-26.0) 12/01/21 Unknown ABG O2 Saturation 97.2 % (95.0-99.0) 12/01/21 Unknown Calcium 8.5 mg/dL (8.4-10.2) 12/09/21 07:05 Phosphorus 5.20 mg/dL (2.5-4.5) H 12/02/21 03:22 Magnesium 1.60 mg/dL (1.7-2.3) L 11/19/21 14:38 Urine Creatinine 190.9 mg/dL (0.1-20.0) H 11/04/21 Unknown Urine Sodium 10 mmol/L 11/04/21 Unknown Urine Total Protein 172 mg/dL (5-11.8) H 11/04/21 Unknown Medications & Allergies - Medications Allergies/Adverse Reactions: Allergies No Known Allergies Allergy (Verified 10/29/21 14:01) Home Medications: Home Medications Medication Instructions Recorded Confirmed Last Taken Type Unobtainable 11/10/21 11/10/21 Unknown History Active Medications: Generic Name Dose Route Start Last Admin Trade Name Freq PRN Reason Stop Dose Admin Acetaminophen 650 mg 10/29/21 17:04 11/12/21 22:53 Acetaminophen 650 Mg Rect Supp [place] 650 mg Q6H PRN Administration Pain MILD(1-3)/Fever >100.5/NIEVES Acetaminophen 650 mg 11/19/21 16:35 12/02/21 18:20 Acetaminophen 325 Mg Tab PO 650 mg Q6HR PRN Administration PAIN Albumin Human 50 gm 12/02/21 11:00 12/02/21 11:55 Albumin Human 25% (25 Gm/100 Ml) Inj IV 50 gm ZACH PRN Administration Hypotension Alprazolam 0.25 mg 11/14/21 14:29 12/07/21 12:00 Alprazolam 0.25 Mg Tab PO 0.25 mg Q8H PRN Administration Anxiety Amiodarone HCl 200 mg 12/06/21 12:00 12/08/21 21:32 Amiodarone 200 Mg Tab PO 200 mg BID RAMON Administration Docusate Sodium 100 mg 11/18/21 15:00 12/08/21 21:32 Docusate Sodium 100 Mg Cap PO 100 mg BID RAMON Administration Epoetin [place]-epbx 10,000 unit 12/06/21 10:00 12/07/21 15:30 Epoetin [place]-Epbx 10,000 Unit/1 Ml Vial IV 10,000 unit ZACH PRN Administration hemodialysis Famotidine 10 mg 11/06/21 10:00 12/08/21 21:32 Famotidine 10 Mg Tab PO 10 mg BID RAMON Administration Gabapentin 100 mg 11/28/21 14:00 12/09/21 05:58 Gabapentin 100 Mg Cap PO 100 mg Q8HR RAMON Administration Heparin Sodium (Porcine) 4,000 unit 12/01/21 07:50 12/02/21 17:22 Heparin 10,000 Units/10 Ml Vial 40 unit/kg (4300 unit) 4,000 unit IV Administration Q6H PRN Anti-Xa Assay < 0.1 units/ml Hydrophilic Ointment 1 applic 10/29/21 14:29 11/09/21 08:51 Lip Therapy Vaseline TP 1 applic Q2HR PRN Administration Dry Lips Heparin Sodium/Sodium Chloride 25,000 unit in 500 mls @ 30 mls/hr 11/28/21 17:00 12/09/21 05:53 Heparin/ 0.45% Nacl-25,000 Unit/500 Ml IV 1,750 units/hr TITR RAMON 35 mls/hr Administration Protocol 1,500 UNITS/HR Sodium Chloride 100 mls @ 999 mls/hr 12/01/21 14:44 Nacl 0.9% IV ZACH PRN Hypotension Insulin Human Lispro 0 unit 11/25/21 22:00 12/08/21 23:52 Insulin Lispro 100 Unit/Ml SUB-Q Not Given ACHS [facility] Protocol Lactulose 20 gm 11/18/21 14:43 12/06/21 15:26 Lactulose 20 Gm/30 Ml Oral Liqd PO 20 gm Q6H PRN Administration Constipation Losartan Potassium 25 mg 12/08/21 12:00 12/08/21 13:08 Losartan 25 Mg Tab PO 25 mg QDAY [facility] Administration Melatonin 10 mg 11/22/21 17:31 12/05/21 22:38 Melatonin 5 Mg Tab PO 10 mg QHS PRN Administration Sleep Metoprolol Tartrate 100 mg 12/07/21 11:00 12/08/21 21:32 Metoprolol Tartrate 50 Mg Tab PO 100 mg BID [facility] Administration Midodrine 10 mg 12/01/21 12:00 12/08/21 18:56 Midodrine 5 Mg Tab PO Not Given TID@0800,1200,1600 [facility] Morphine Sulfate 1 mg 11/28/21 15:00 12/03/21 21:43 Morphine 2 Mg/1 Ml Inj IV 1 mg Q4H PRN Administration Pain, Moderate (4-6) Multi-Ingred Cream/Lotion/Oil/Oint 1 applic 10/29/21 14:29 11/06/21 09:25 Mineral Oil/Petrolatum, White Ophth Oint 3.5 Gm OU 1 applic Q4HR PRN Administration Dry Eye(s) Oxycodone/Acetaminophen 1 tab 11/27/21 14:31 12/05/21 22:39 Oxycodone /Acetaminophen 5-325mg Tab PO 1 tab Q4H PRN Administration Pain, Moderate (4-6) Polyethylene Glycol 17 gm 11/20/21 12:47 12/08/21 09:54 Polyethylene Glycol 3350 17 Gm Powder PO 17 gm QDAY PRN Administration Constipation Senna/Docusate Sodium 1 tab 11/16/21 22:00 12/08/21 21:32 Sennosides/Docusate Sodium 8.6/50 Mg Tab PO 1 tab BID RAMON Administration Sodium Chloride 10 ml 10/29/21 22:00 12/08/21 21:32 Sodium Chloride 0.9% 10 Ml Flush Syringe IV 10 ml BID RAMON Administration Sodium Chloride 10 ml 10/29/21 17:04 Sodium Chloride 0.9% 10 Ml Flush Syringe IV PRN PRN LINE FLUSH
[2021-12-09] MEDS: INSULIN LISPRO 100 UNIT/ML SUB-Q SCH ×3 (09:26→22:00)
[2021-12-09] MEDS: MIDODRINE 5 MG TAB PO SCH ×2 (09:26→18:55)
[2021-12-09] MEDS: HEPARIN 10,000 UNITS/10 ML VIAL ONE ×2 (09:32→09:33)
[2021-12-09] MEDS ORDERED: ceFAZolin/Water 2 GM/20 ML 2 GM/20 ML SYRINGE IV ONE (09:35)
--- NOTE | 2021-12-09 09:59 | Operative Report ---
Operative Report Operative Report: Date of Procedure: 12/09/2021 Pre-operative Diagnosis: End-Stage Renal Disease Post-operative Diagnosis: Same Procedure(s): 1. Exchange of Right Internal Jugular Vas-Cath to 23 Cm Glidepath Permacath over Wire 2. Radiologic Supervision with Interpretation 3. Monitored Moderate Sedation (Total Anesthesia Time: 15 Minutes) Surgeon: José Antonio Neville M.D. Design Lead: None Anesthesia: Local/Monitored Moderate Sedation Total Anesthesia Time: 15 Minutes EBL: Minimal Counts: Correct Complications: None Condition: Stable Findings: Permacath was placed with the distal tip in the right atrium Specimen: Indwelling Vas-Cath was discarded. Indication: The patient is a 66-year-old female with an indwelling Vas-Cath at required exchanged to a permacath. She was given the risk, benefits, and alternative procedures and consented to the procedure. Description of Procedure: The patient was brought to the Family Assessment Worker and laid in supine position. After timeout was performed her right chest, neck, and indwelling Vas-Cath were prepped and draped in normal sterile fashion. A 0.035 J-wire was advanced t hrough the PICC port and into the inferior vena cava under fluoroscopy. The insertion site was then anesthetized with lidocaine and the presumed exit site on the chest was anesthetized with lidocaine. A small stab incision was made on the chest and a 23 cm Glidepath Permacath was tunneled from the exit site on the chest to the entry site on the neck. The Vas-Cath was removed leaving the wire in place and the 16 [place]ali peel-away SafeSheath was inserted into the internal jugular vein by Seldinger technique. The dilator and wire were removed and the tunneler was removed from the permacath. The permacath was inserted into the SafeSheath and the SafeSheath was peeled away while applying for pressure to the permacath. The permacath was positioned with the distal tip in the right atrium and both ports were easily aspirated and flushed. The ports were then primed with the appropriate amount heparin. The catheter was secured in position with a 2-0 Ethilon in interrupted fashion and the neck incision was closed with a 4-0 Monocryl in interrupted fashion. The neck incision was then dressed with Dermabond and the catheter was dressed with a sterile dressing. Final fluoroscopy demonstrated the catheter was in adequate position with the distal tip in the right atrium and no evidence of pneumothorax. The patient tolerated the procedure well was transported to the recovery area in stable condition.
[2021-12-09] MEDS: SENNOSIDES/DOCUSATE SODIUM 8.6/50 MG TAB PO SCH ×2 (10:48→21:55)
[2021-12-09] MEDS: METOPROLOL TARTRATE 50 MG TAB PO SCH ×2 (10:48→22:01)
[2021-12-09] MEDS: FAMOTIDINE 10 MG TAB PO SCH ×2 (10:48→21:55)
[2021-12-09] MEDS: AMIODARONE 200 MG TAB PO SCH (10:49)
[2021-12-09] MEDS: DOCUSATE SODIUM 100 MG CAP PO SCH ×2 (10:49→21:55)
--- NOTE | 2021-12-09 10:53 | Progress Note ---
Assessment and Plan Assessment and plan: 66 YO Female with Obesity was attending [facility] services when the patient collapsed and lost consciousness. Witnesses began CPR. EMS was notified and upon arrival the patient was found to be in distress without perfusing cardiac rhythm. Patient initiated on ACLS protocol and subsequently intubated in the field and transported to ED. The patient regained spontaneous circulation during transport. She was found to have acute hypoxemic respiratory failure, septic shock suspected secondary to aspiration pneumonia, metabolic acidosis, toxic metabolic encephalopathy, shock liver, and cardiac arrest with return of perfusing cardiac rhythm after initiation of ACLS protocol. Patient initiated on sepsis protocol as well as pneumonia protocol. Patient admitted to ICU. Patient improved, extubated on 11/11 and transferred to floor on 11/19. s/p cardiac arrest, collapse at [facility], HFrEF, shock/hypotension resolved Atrial fibrillation/atrial flutter -Cardiac arrest and collapse at [facility] with ROSC -Cardiology consulted, appreciate recommendations - S/p Cardizem gtt- d/c due to low EF; now on PO Amio -s/p vasopressor support with levophed -Echocardiogram shows left ventricular systolic function severely decreased, LVEF 25 to 30%, no pericardial effusion -proBNP 5622 -Continue Lasix 20 mg twice daily, BB, spironolactone, losartan -No significant volume overload clinically Acute hypoxic respiratory failure, right pneumothorax, Angioedema (resolved), pulmonary edema -[facility] consulted, appreciate recommendations -Intubated on 10/29 and extubated on 11/11 -Bipap q HS and prn, at high risk for KOLBY with morbid obesity -NC during day -s/p right chest tube for pneumothorax -s/p steroids for angioedema -On Lasix for pulmonary edema. Transaminitis likely shocked liver - resolved Acute kidney injury likely secondary to vasomotor nephropathy, hypernatremia -Nephrology consulted, appreciate recommendations -Krishna replaced 11/05 urinary retention -FeNa 0.05 indicating pre-renal -SIERRA and hyponatremia resolved. Creatinine 1.0 on Lasix IV Shock cardiogenicsuspected sepsis -Fever was as high as 102 with a leukocytosis Blood, urine and sputum cultures negative -COVID-19 PCR negative -S/p empiric antibiotic therapy for possible pneumonia with Rocephin and azithromycin () -S/p Levophed gtt for hypotension -Fever and leukocytosis resolved -Monitor WBC and temperature curve Acute Metabolic encephalopathy, agitation/anxiety -Etiology likely from a cardiac arrest, shock and cerebral hypoperfusion CT head no acute focal parenchymal lesion in the brain -Neurology consulted, appreciate recommendations -EEG and MRI noted, Neuro recommend to cut down on sedation as possible Mental status significantly improved, currently fairly alert and oriented. Answers appropriately. Acute DVT in the left posterior tibial vein and bilateral peroneal veins, Anemia, retroperitoneal bleed -D-dimer greater than 10,000 -CTA chest with no evidence of PE -Bilateral lower extremity ultrasound positive for DVT -Heparin gtt on hold d/t anemia, received PRBC x4 -vasuclar surgery consulted, appreciate recommendations -recommended multiphasic CT angio of the abdomen and pelvis with and without contrast if H/H drops and did not recommend IVC filter at this time as the DVTs are infrapopliteal and recommends a follow-up DVT study weekly for 2 weeks. Repeat venous duplex ultrasound on 11/21 showed progression of left peroneal DVT extending into popliteal vein. Vascular surgery completed IVC filter placement on 11/22. -Trend CBC -SCDs to BLE while in bed -Transfuse hemoglobin less than 7 -Monitor for signs of bleeding -Hemoglobin stable, 8.6 Hypertension, not able be controlled Increase losartan 200 mg daily and add hydralazine as needed. Hyperglycemia ,resolved) -Avoid hypoglycemia -Hbg A1C 6.7 -SSI and lantus q hs (titrate as needed) -Accu-Cheks q. 6 Morbid obesity High risk for KOLBY On nightly BiPAP Deconditioning PT/OT Hospital Course to Date: 10/30: Intubated and sedated, on fentanyl gtt. Open eyes spontaneously but does not follow any commands. On vasopressors, titrate as tolerated for MAP above 65. Patient febrile overnight, continue empiric IV Abx, culture data and COVID PCR pending. Patient is also s/p CT placement due to spontaneous pneumothorax. 2D echo is pending and Cardiology is consulted. 10/31: Patient remains intubated and following commands. Levophed drip stopped and potassium repleted. Patient started on tube feeding. Remains in soft bilateral restraints. 11/01: RN noted ST changes on BSM and 12 lead EKG obtained which showed ST. Given Ativan 1mg for agitation as she is maxed on fentanyl drip and IV push fentanyl did not seem to help. Patient was started on CPAP this morning by RT but remained on fentanyl drip and was having periods of apnea. Plan was to retry CPAP again in the p.m. with sedation off. 11/02: Rate increased r/t hypercapnea on ABG, sedation reduced. Given kionex for hyperkalemia and was started on levophed overnight for hypotension. 11/03: Overnight patient had tachycardia and was given Cardizem and Lopressor. Lopressor was repeated in the a.m. due to tachycardia. Patient will be started on amiodarone with a bolus per cardiology. Patient started on normal saline per liter per [facility] and steroids for angioedema. Noted to have bright red blood when suctioned from oh ETT. Remains on heparin drip as H/H is stable for now. Will reevaluate. Fentanyl drip was restarted last night due to agitation. Dr. Flores updated family today 11/04: Patient was sedated on fentanyl however off sedation is able to follow commands, a.m. labs completed in the p.m. and show hyperkalemia with increased renal function studies. Nephrology, neurology consulted by [facility]. Given Kayexalate, insulin and D50 for hyperkalemia. Patient remains on amiodarone. 11/05: Patient needed to be sedated on fentanyl again to today. overnight krishna was replaced. Hyperkalemia->given kionex 60 for 5.6. Repeat K 6-> Dr. Grant informed and requested bumex, kionex, insulin, d50, calcium gluconate and sodium bicarb with repeat BMP in 2 hours which were placed. HR remains elevated. 11/06: Patient remained in atrial fibrillation/atrial flutter with heart rate in the 150s despite being on amnio drip and was given amnio bolus, Cardizem bolus and started on Cardizem drip by cardiology. Patient is on beta-blockers p.o. scheduled and to feedings changed to Nepro. Kayexalate was given in the morning by nephrology due to hyperkalemia. 11/07: Patient is only responsive to mild stimuli, precedex added in an attempt to wean off fentanyl gtt to better assess her mental status. Neurology also on consult, pending MRI and EEG. Patient remains in Aflutter this am, HR in the 80 to 90s, still on amiodarone and heparin gtt. 11/08: Fentanyl gtt is off, only on precedex gtt. Patient is still not following any commands. MRI brain and EEG completed. Neuro recommendations noted, sedatives agents decreased. FWF added for hypernatremia and low K repleted, repe at labs ordered. Placed a call and spoke with patient's daughter, Eva Brown . She was updated on patient's conditions and status. All questions and concerns were voiced at this time. 11/09: Patient is awake and alert this am, following commands and appropriate. Remains on precedex gtt, plan for possible PST today. Hypertensive overnight, meds adjusted by Cardio and PRN Hydralazine added for SBP greater than 160. CT dislodged overnight, CXR is stable with no significant change. F/U CXR in the am. Patient's daughter, Eva Brown, visited with patient. She was updated on patient's status and goal of care for today. All questions and concerns were voiced at this time. 11/10: Mentation remains intact, still on precedex gtt. This am CXR noted still with fluid overload s/p X1 dose of IV lasix, good response from IV lasix overnight. Hypernatremia improved, D5W d/dayday. Still with persistent hypokalemia, continue electrolytes replacement and frequent lab check. Daily IV lasix and aldactone added by Cardio. Patient is also with persistent low grade fevers overnight, leukocytosis with mild improvement this am. Will get a repeat sputum culture, hold off on IV abx for now. Consider ID consult if fevers and leukocytosis persist. Patient tolerated PST X4hrs yesterday. PST again today, plan to wean to extubate if tolerated. 11/11: IMA overnight. Off precedex gtt and tolerated PST this am. Plan to wean to extubate today. Additional IV lasix given, plan to keep patient at a net negative balance for better lung compliance. F/U CXR in the am. K improved this am, repeat BMP this afternoon since diuresing. Remains with low grade fevers, leukocytosis downtrending, will continue to monitor. Speech/PT/OT ordered 11/12: S/p extubation, now stable on 3L NC. This am CXR noted with no significant changes, lasix changed to IV X4days BID. Drop in H&H this am, and Lt. flank ecchymosis noted. Heparin gtt on hold for now and orders placed for 1 unit of PRBCs and Ct Abd/Pelvis w/o con to r/o retroperitoneal bleed. Pending speech swallow eval, keep patient NPO for now. Patient is stable for IMCU status 11/13: Patient with increased WOB and tachycardia this am, patient was placed on Bipap and precedex gtt was resumed. CXR with mild improvement. CT Abd/Pelvis also reviewed large hematomas noted at the Lt. retroperitoneum and left posterior lateral abdominal wall. Heparin gtt is already on hold, patient is hemodynamically stable. Vascular Surgery consulted for possible IVC filter eval. Patient s/p 2units of PRBCs, will continue to trend H&H and transfuse if hbg is less than 7. Worsening renal function this am, IF diuretic on hold for now. Patient is also febrile with spike in wbcs most likely reactive to bleed, will panculture and hold off on IV Abx for now. Patient also failed speech bedside swallow eval yesterday, NGT in placed plan to resume enteral nutrition 11/14: Patient had bilateral lower extremity Doppler ultrasound and vascular surgery has recommended multiphasic CT angio of the abdomen and pelvis with and without contrast if H/H drops and does not recommend IVC filter at this time as the DVTs are infrapopliteal and recommends a DVT study weekly for 2 weeks. FWF 250 q4 ml per nephro. Started on as needed Xanax and p.o. amiodarone. She did not pass her ST evaluation today. Will be transferred to [facility]. 11/15: Resting comfortably on encounter. Speech cleared for pureed diet. Remains on 3l satting 98 % on bedside encounter. Does not appear to be in respiratory distress. Will continue to hold AC, No ivc filter planned at this time. qweekly doppler to monitor for migration of DVT per vascular. If demonstrated, will consider IVC filter. CBC ordered for tomorrow, will continue monitoring in light of retroperitoneal hematoma. FWF increased by nephrology to 350cc q4hr d/t hypernatremia. UOP/renal function both improved. D/w cardiology, will continue amiodorone an additional 24hrs. Plan to change dosing of metoprolol. Continue to wean off of precedex. Continue xanax scheduled for anxiety. physical therapy recs noted, fernanda / ltac will discuss with CM. Continue IMCU monitoring. 11/16: Pulmonary congestion this AM. CXR ordered. Lasix 40 mg IV x 1 order this AM. Will monitor for 24 hrs. potential downgrade to medical floor tomorrow. 11/17: Persisting pulmonary congestion, was on bipap overnight into this AM. Will order additional lasix 40 mg IV x 2. CXR ordered for AM. Possible downgrade to floor tomorrow. Anticipate d/c sunday. 11/18: Patient seen and examined, continue weaning, will continue diuresis BID, discussed with daughter. 11/19: Patient seen and examined this morning doing well no acute distress noted. Lasix was increased to twice daily to 20 mg IV. Clinically improving. Patient will be transferred to telemetry today can be switched to Lasix p.o. twice daily in a.m. She has her weekly Doppler of lower extremity tomorrow vascular is following for this. She was taken off anticoagulation secondary to retroperitoneal bleed., The anticoagulation was started initially for atrial fibrillation and an infrapopliteal DVT. During her hospital stay she had a prolonged ventilator management and was successfully weaned off. She also received a total of 4 units of packed red blood cell. Hemoglobin has remained stable. Anticipate discharge in next 48 hours if continues to clinically stay stable. : Transferred from ICU on 11/19. Progressive improving. Currently awake and oriented. O2 weaned to 4 L. Hemodynamically stable. BP control being optimized. MiraLAX for constipation. Hemoglobin stable on the heparin infusion, being monitored closely with history of retroperitoneal bleed. 11/21: Patient remains mostly bedridden. She is awake and oriented on 2 L of O2. Repeat ultrasound showed extension of left peroneal DVT into popliteal vein. Heparin was discontinued for significant retroperitoneal bleed and off anticoagulation since. Vascular surgery plan for placement of IVC filter tomorrow. Patient is chest pains, palpitations, hemoptysis. She has some cough. Left lower extremity pain likely from DVT better today. Discussed with the patient, nursing staff and vascular surgery. 11/22: The infrapopliteal vein thrombosis has propagated to the left popliteal vein. Vascular surgery to perform IVC filter placement today. 11/23: Vascular surgery placed IVC filter yesterday. Continue metoprolol 100 mg p.o. twice daily, Aldactone 25 mg p.o. daily and losartan 25 mg p.o. daily. Patient still requiring BiPAP (IPAP18, EPAP8) with FiO2 of 30%. Continue to wean oxygen per pulmonary recommendations. Nurse reports patient is having vaginal bleeding. We will check serial CBC and pelvic ultrasound 11/24: I discussed with cardiology yesterday the need for a LifeVest. LifeVest is ordered and pending. Patient is s/p IVC filter placement. Continue metoprolol 100 mg p.o. twice daily, Aldactone 25 mg p.o. daily and losartan 25 mg p.o. da amy. Patient still requiring BiPAP (IPAP18, EPAP8) with FiO2 of 30%. Continue to wean oxygen per pulmonary recommendations. No further reports of vaginal bleeding. Pelvic ultrasound negative 11/25: Awaiting for LifeVest. Patient is s/p IVC filter placement. Continue metoprolol 100 mg p.o. twice daily, Aldactone 25 mg p.o. daily and losartan 25 mg p.o. daily. Patient still requiring BiPAP (IPAP18, EPAP8) with FiO2 of 30%. Continue to wean oxygen per pulmonary recommendations. 11/26: Physical therapy recommends subacute rehab. Still awaiting LifeVest. Patient is s/p IVC filter placement. Continue metoprolol 100 mg p.o. twice daily, Aldactone 25 mg p.o. daily and losartan 25 mg p.o. daily. Patient still requiring BiPAP (IPAP18, EPAP8) with FiO2 of 30% at night. Continue to wean oxygen per pulmonary recommendations. Patient currently with 2 L O2. 11/27: Physical therapy recommends subacute rehab. Patient has a LifeVest. Patient's left lower extremity pain likely related to DVT. Continue pain control. Continue metoprolol 100 mg p.o. twice daily, Aldactone 25 mg p.o. daily and losartan 25 mg p.o. daily. Patient still requiring BiPAP (IPAP18, EPAP8) with FiO2 of 30% at night. 11/28: Physical therapy recommends subacute rehab. Patient has a LifeVest. Patient continues to complain of left lower extremity pain which makes it very difficult for ambulation. Continue Percocet for pain control. Add neurontin for possible neuropathy. Etiology is likely secondary to DVT. Continue metoprolol 100 mg p.o. twice daily, Aldactone 25 mg p.o. daily and losartan 25 mg p.o. daily. Patient still requiring BiPAP (IPAP18, EPAP8) with FiO2 of 30% at night. Repeated Doppler US of LLE and will ask vascular surgery to revisit. 11/29; worsening lower extremity DVTs, vascular following, on heparin drip 11/30; low-grade fever, leukocytosis, shortness of breath, chest x-ray possible left-sided pneumonia/possible healthcare associated pneumonia Blood cultures already sent, empiric antibiotic cefepime[renal dose confirmed with pharmacist] ID consult if needed 12/01; gram-positive bacteremia preliminary, add vancomycin 1 dose, repeat cultures, consult ID Worsening renal function, nephrology initiated hemodialysis today, patient is critically ill, very poor prognosis, with multiple comorbidities And critical issues. [place] Manager recommendations noted and appreciated 12/02; Gram positive bacteremia/possible HCAP and sepsis, on cefepime and 1 dose Vanco. Nephrology initiated hemodialysis, ID consult. Patient is hypotensive, pulmonary critical recommended transfer to ICU and start vasopressors for close observation overnight. Dr. Padron discussed with patient's daughter over patient's telephone and discussed in detail patient's condition, new developments sepsis, renal failure on hemodialysis anticoagulation for DVT and severe cardiomyopathy, also discussed poor prognosis, and the plans of transferring the patient to ICU for close observation. Many questions, and answered all of them. dr. Padron also discussed with granddaughter at the bedside and patient was moved to ICU, She had numerous questions answered all of them and discussed the current co ndition prognosis and treatment plan. She verbalized understanding 12/03: Patient was transferred to ICU yesterday evening for hypotension however she did not need to be started on any vasopressin therapy. Patient is on p.o. midodrine and all her antihypertensives have been held. She also received albumin bolus. Patient will be transferred to the floor today. Still complains of bilateral lower extremity pain. Patient is on cefepime and she is scheduled for dialysis today. 12/04: Some complaint of leg pain. Percocet given for pain control. Patient is very deconditioned, will need aggressive PT. Will work on d/c planning with cm. 12/05: Patient does not appear to be in distress this AM. tachycardic hr on encounter and overnight, was given diltiazem by collar closer lockstitch. Cardiology initiated metoprolol and amiodorone on patient this morning. She denies any pain except for discomfort in left lower extremity. Controlled with percocet. She also states that she does not have any urine output and has been constipated. Will order bowel regimen. Discharge needs discussed with CM which include Lifevest, BIPAP for nightly use, and possible set up for dialysis. She was visiting on a visa to the from [place] however is technically a citizen of [place] which makes placement a continued challenge. 12/06: Case management reports patient will need LifeVest, walker, CPAP and arrangements for outpatient hemodialysis. However, patient is uninsured. I discussed with the daughter Eva plans for home hospice. Eva reports that she is willing to have hospice to obtain additional resources but is not wanting palliative care/comfort measures. 12/07: Awaiting LifeVest and outpatient HD arrangements. I d/w CM discharge planning. Pt still with heparin drip but amiodarone changed to p.o. 200mg BID. Cont. Metoprolol 50mg BID. Hold LAYO and ARB for renal fxn. Patient for outpatient ischemic evaluation per Cardiology. Leukocytosis likely related to retroperitoneal hematoma. ID wants to monitor off abx. 12/08: Awaiting LifeVest and outpatient HD arrangements. I d/w CM discharge planning. Pt still with heparin drip. Await cardiology recommendations to transition to p.o. anticoagulation. Patient for outpatient ischemic evaluation per Cardiology. Leukocytosis likely related to retroperitoneal hematoma. Continue to monitor off antibiotics. Continue volume management per nephrology with hemodialysis 12/09: Patient with PermCath placement today. Nephrology reports patient hypotensive during hemodialysis and started 10 mg of midodrine for hypotension. Losartan discontinued. Continue to obtain daily weights and Strict I/O's. Renally dose medications and avoid nephrotoxic agents. Patient for outpatient ischemic evaluation per Cardiology. Leukocytosis likely related to retroperitoneal hematoma. Continue to monitor off antibiotics. Awaiting LifeVest and outpatient HD arrangements. History Interval history: No new issues overnight. Hospitalist Physical - Constitutional Vitals: Temp Pulse Resp BP Pulse Ox 97.7 F 54 L 22 112/60 96 12/09/21 08:00 12/09/21 08:00 12/09/21 08:00 12/09/21 08:00 12/09/21 10:00 General appearance: Present: mild distress, well-nourished, obese (Morbidly obese), other (Chronically ill looking) - EENT Eyes: Present: PERRL, EOM intact ENT: hearing intact, clear oral mucosa, dentition normal - Neck Neck: Present: supple, normal ROM - Respiratory Respiratory effort: normal Respiratory: bilateral: CTA - Cardiovascular Rhythm: regular Heart Sounds: Present: S1 & S2. Absent: gallop, rub - Extremities Extremities: no ischemia, No edema, Full ROM - Abdominal General gastrointestinal: soft, non-tender, non-distended, normal bowel sounds - Integumentary Integumentary: Present: clear, warm, dry - Neurologic Neurologic: CNII-XII intact, moves all extremities HEART Score - HEART Score Troponin: Troponin T 1.150 ng/mL (0.00-0.029) H* D 10/29/21 22:34 Results - Labs CBC & Chem 7: 12/08/21 04:53 12/09/21 07:05 Labs: Laboratory Last Values WBC 24.2 K/mm3 (4.5-11.0) H 12/08/21 04:53 RBC 2.71 M/mm3 (3.65-5.03) L 12/08/21 04:53 Hgb 7.6 gm/dl (10.1-14.3) L 12/08/21 04:53 Hct 24.1 % (30.3-42.9) L 12/08/21 04:53 MCV 89 fl (79-97) 12/08/21 04:53 MCH 28 pg (28-32) 12/08/21 04:53 MCHC 32 % (30-34) 12/08/21 04:53 RDW 16.7 % (13.2-15.2) H 12/08/21 04:53 Plt Count 114 K/mm3 (140-440) L 12/08/21 04:53 Lymph % (Auto) 11.1 % (13.4-35.0) L 11/29/21 13:51 Lea % (Auto) 15.5 % (0.0-7.3) H 11/29/21 13:51 Eos % (Auto) 1.0 % (0.0-4.3) 11/29/21 13:51 Baso % (Auto) 0.6 % (0.0-1.8) 11/29/21 13:51 Lymph # (Auto) 1.4 K/mm3 (1.2-5.4) 11/29/21 13:51 Lea # (Auto) 2.0 K/mm3 (0.0-0.8) H 11/29/21 13:51 Eos # (Auto) 0.1 K/mm3 (0.0-0.4) 11/29/21 13:51 Baso # (Auto) 0.1 K/mm3 (0.0-0.1) 11/29/21 13:51 Add Manual Diff Complete 12/08/21 04:53 Total Counted 100 12/08/21 04:53 Seg Neutrophils % 71.8 % (40.0-70.0) H 11/29/21 13:51 Seg Neuts % (Manual) 76.0 % (40.0-70.0) H 12/08/21 04:53 Band Neutrophils % 0 % 12/08/21 04:53 Lymphocytes % (Manual) 14.0 % (13.4-35.0) 12/08/21 04:53 Reactive Lymphs % (Man) 0 % 12/08/21 04:53 Monocytes % (Manual) 6.0 % (0.0-7.3) 12/08/21 04:53 Eosinophils % (Manual) 4.0 % (0.0-4.3) 12/08/21 04:53 Basophils % (Manual) 0 % (0.0-1.8) 12/08/21 04:53 Metamyelocytes % 0 % 12/08/21 04:53 Myelocytes % 0 % 12/08/21 04:53 Promyelocytes % 0 % 12/08/21 04:53 Blast Cells % 0 % 12/08/21 04:53 Nucleated RBC % 1.0 % (0.0-0.9) H 12/08/21 04:53 Seg Neutrophils # 9.3 K/mm3 (1.8-7.7) H 11/29/21 13:51 Seg Neutrophils # Man 18.4 K/mm3 (1.8-7.7) H 12/08/21 04:53 Band Neutrophils # 0.0 K/mm3 12/08/21 04:53 Lymphocytes # (Manual) 3.4 K/mm3 (1.2-5.4) 12/08/21 04:53 Abs React Lymphs (Man) 0.0 K/mm3 12/08/21 04:53 Monocytes # (Manual) 1.5 K/mm3 (0.0-0.8) H 12/08/21 04:53 Eosinophils # (Manual) 1.0 K/mm3 (0.0-0.4) H 12/08/21 04:53 Basophils # (Manual) 0.0 K/mm3 (0.0-0.1) 12/08/21 04:53 Metamyelocytes # 0.0 K/mm3 12/08/21 04:53 Myelocytes # 0.0 K/mm3 12/08/21 04:53 Promyelocytes # 0.0 K/mm3 12/08/21 04:53 Blast Cells # 0.0 K/mm3 12/08/21 04:53 WBC Morphology Not Reportable 12/08/21 04:53 Hypersegmented Neuts Not Reportable 12/08/21 04:53 Hyposegmented Neuts Not Reportable 12/08/21 04:53 Hypogranular Neuts Not Reportable 12/08/21 04:53 Smudge Cells Not Reportable 12/08/21 04:53 Toxic Granulation Not Reportable 12/08/21 04:53 Toxic Vacuolation Not Reportable 12/08/21 04:53 Dohle Bodies Not Reportable 12/08/21 04:53 Pelger-Huet Anomaly Not Reportable 12/08/21 04:53 Manny Rods Not Reportable 12/08/21 04:53 Platelet Estimate Consistent w auto 12/08/21 04:53 Clumped Platelets Not Reportable 12/08/21 04:53 Plt Clumps, EDTA Not Reportable 12/08/21 04:53 Large Platelets Not Reportable 12/08/21 04:53 Giant Platelets Not Reportable 12/08/21 04:53 Platelet Satelliting Not Reportable 12/08/21 04:53 Plt Morphology Comment Not Reportable 12/08/21 04:53 RBC Morphology Not Reportable 12/08/21 04:53 Dimorphic RBCs Not Reportable 12/08/21 04:53 Polychromasia Not Reportable 12/08/21 04:53 Hypochromasia 1+ 12/08/21 04:53 Poikilocytosis Not Reportable 12/08/21 04:53 Anisocytosis 1+ 12/08/21 04:53 Microcytosis Not Reportable 12/08/21 04:53 Macrocytosis Not Reportable 12/08/21 04:53 Spherocytes Not Reportable 12/08/21 04:53 Pappenheimer Bodies Not Reportable 12/08/21 04:53 Sickle Cells Not Reportable 12/08/21 04:53 Target Cells Not Reportable 12/08/21 04:53 Tear Drop Cells Not Reportable 12/08/21 04:53 Ovalocytes Not Reportable 12/08/21 04:53 Helmet Cells Not Reportable 12/08/21 04:53 [place] Bodies Not Reportable 12/08/21 04:53 [place] Rings Not Reportable 12/08/21 04:53 [place] Cells Not Reportable 12/08/21 04:53 Bite Cells Not Reportable 12/08/21 04:53 Crenated Cell Not Reportable 12/08/21 04:53 Elliptocytes Not Reportable 12/08/21 04:53 Acanthocytes (Spur) Not Reportable 12/08/21 04:53 Rouleaux Not Reportable 12/08/21 04:53 Hemoglobin C Crystals Not Reportable 12/08/21 04:53 Schistocytes Not Reportable 12/08/21 04:53 Malaria parasites Not Reportable 12/08/21 04:53 [place] Bodies Not Reportable 12/08/21 04:53 Hem Pathologist Commnt No 12/08/21 04:53 PT 17.2 Sec. (12.2-14.9) H 10/30/21 16:30 INR 1.27 (0.87-1.13) H 10/30/21 16:30 APTT 44.4 Sec. (24.2-36.6) H 10/30/21 16:30 D-Dimer > 75460 ng/mlDDU (0-234) H 10/30/21 Unknown Heparin Anti-Xa Level 0.39 U.I./ml (0.3-0.7) 12/08/21 19:05 ABG pH 7.450 pH Units (7.350-7.450) 12/01/21 Unknown ABG pCO2 38.0 mm Hg 12/01/21 Unknown ABG pO2 88.9 mm Hg (80.0-90.0) 12/01/21 Unknown ABG HCO3 25.8 mmol/L (20.0-26.0) 12/01/21 Unknown ABG O2 Saturation 97.2 % (95.0-99.0) 12/01/21 Unknown ABG O2 Content 19.4 (0.0-44) 12/01/21 Unknown ABG Base Excess 1.9 mmol/L (-2.0-3.0) 12/01/21 Unknown ABG Hemoglobin 14.3 gm/dl (12.0-16.0) 12/01/21 Unknown ABG Carboxyhemoglobin 1.0 % (0.0-5.0) 12/01/21 Unknown ABG Methemoglobin 0.5 % (0.0-1.5) 12/01/21 Unknown Oxyhemoglobin 95.8 % (95.0-99.0) 12/01/21 Unknown FiO2 21 % 12/01/21 Unknown Sodium 124 mmol/L (137-145) L 12/09/21 07:05 Potassium 5.0 mmol/L (3.6-5.0) 12/09/21 07:05 Chloride 89.9 mmol/L (98-107) L 12/09/21 07:05 Carbon Dioxide 22 mmol/L (22-30) 12/09/21 07:05 Anion Gap 17 mmol/L 12/09/21 07:05 BUN 45 mg/dL (7-17) H 12/09/21 07:05 Creatinine 3.5 mg/dL (0.6-1.2) H 12/09/21 07:05 Estimated GFR 16 ml/min 12/09/21 07:05 BUN/Creatinine Ratio 13 % 12/09/21 07:05 Glucose 94 mg/dL (65-100) 12/09/21 07:05 POC Glucose 93 mg/dL (70-105) 12/09/21 07:57 Hemoglobin A1c 6.7 % (4-6) H 10/31/21 04:30 Lactic Acid 0.70 mmol/L (0.7-2.0) 10/31/21 15:45 Calcium 8.5 mg/dL (8.4-10.2) 12/09/21 07:05 Phosphorus 5.20 mg/dL (2.5-4.5) H 12/02/21 03:22 Magnesium 1.60 mg/dL (1.7-2.3) L 11/19/21 14:38 Ferritin 208.4 ng/mL (10.0-200.0) H 10/30/21 Unknown Total Bilirubin < 0.20 mg/dL (0.1-1.2) 11/06/21 02:35 AST 21 units/L (5-40) 11/06/21 02:35 ALT 77 units/L (7-56) H 11/06/21 02:35 Alkaline Phosphatase 84 units/L (35-129) 11/06/21 02:35 Ammonia 31.0 umol/L (25-60) 10/29/21 15:10 Lactate Dehydrogenase 469 units/L (91-180) H 10/30/21 Unknown Troponin T 1.150 ng/mL (0.00-0.029) H* D 10/29/21 22:34 C-Reactive Protein 13.40 mg/dL (0.00-1.30) H 10/30/21 Unknown Total Protein 6.3 g/dL (6.3-8.2) 11/06/21 02:35 Albumin 3.0 g/dL (3.9-5) L 11/06/21 02:35 Albumin/Globulin Ratio 0.9 % 11/06/21 02:35 Triglycerides 68 mg/dL (2-149) 10/29/21 19:40 Cholesterol 98 mg/dL (50-199) 10/29/21 19:40 LDL Cholesterol Direct 43 mg/dL (50-130) L 10/29/21 19:40 HDL Cholesterol 50 mg/dL (40-59) 10/29/21 19:40 Cholesterol/HDL Ratio 1.96 % 10/29/21 19:40 Procalcitonin 61.95 ng/mL (<0.15) 10/30/21 Unknown TSH 3.080 mlU/mL (0.270-4.200) 10/29/21 15:10 Urine Color Yellow (Yellow) 11/13/21 08:30 Urine Turbidity Slightly-cloudy (Clear) 11/13/21 08:30 Urine pH 6.0 (5.0-7.0) 11/13/21 08:30 Ur Specific [place] 1.010 (1.003-1.030) 11/13/21 08:30 Urine Protein <15 mg/dl mg/dL (Negative) 11/13/21 08:30 Urine Glucose (UA) Neg mg/dL (Negative) 11/13/21 08:30 Urine Ketones Tr mg/dL (Negative) 11/13/21 08:30 Urine Blood Sm (Negative) 11/13/21 08:30 Urine Nitrite Neg (Negative) 11/13/21 08:30 Urine Bilirubin Neg (Negative) 11/13/21 08:30 Urine Urobilinogen < 2.0 mg/dL (<2.0) 11/13/21 08:30 Ur Leukocyte Esterase Neg (Negative) 11/13/21 08:30 Urine WBC (Auto) < 1.0 /HPF (0.0-6.0) 11/13/21 08:30 Urine RBC (Auto) < 1.0 /HPF (0.0-6.0) 11/13/21 08:30 U Epithel Cells (Auto) < 1.0 /HPF (0-13.0) 11/13/21 08:30 Urine Mucus Few /HPF 10/29/21 18:15 Urine Eosinophils None seen (None Seen) 11/04/21 Unknown Urine Creatinine 190.9 mg/dL (0.1-20.0) H 11/04/21 Unknown Protein/Creatinin Ratio 0.90 11/04/21 Unknown Urine Sodium 10 mmol/L 11/04/21 Unknown Urine Total Protein 172 mg/dL (5-11.8) H 11/04/21 Unknown Salicylates < 0.3 mg/dL (2.8-20.0) L 10/29/21 15:10 Urine Opiates Screen Negative 10/29/21 18:15 Urine Methadone Screen Negative 10/29/21 18:15 Acetaminophen 5.0 ug/mL (10.0-30.0) L 10/29/21 15:10 Ur Barbiturates Screen Negative 10/29/21 18:15 Ur Phencyclidine Scrn Negative 10/29/21 18:15 Ur Amphetamines Screen Negative 10/29/21 18:15 U Benzodiazepines Scrn Negative 10/29/21 18:15 Urine Cocaine Screen Negative 10/29/21 18:15 U Marijuana (THC) Screen Negative 10/29/21 18:15 Drugs of Abuse Note Disclamer 10/29/21 18:15 Plasma/Serum Alcohol < 0.01 % (0-0.07) 10/29/21 15:10 Coronavirus (PCR) Negative (Negative) 10/30/21 Unknown Hepatitis A IgM Ab Non-reactive (NonReactive) 12/01/21 19:36 Hep Bs Antigen Non-reactive (Negative) 12/01/21 19:36 Hep B Core IgM Ab Non-reactive (NonReactive) 12/01/21 19:36 Hepatitis C Antibody Non-reactive (NonReactive) 12/01/21 19:36 Blood Type O POSITIVE 11/12/21 04:15 Antibody Screen Negative 11/12/21 04:15 Crossmatch See Detail 11/12/21 04:15 Krishna/IV: Voiding Method Bedpan Active Medications - Current Medications Current Medications: Generic Name Dose Route Start Last Admin Trade Name Freq PRN Reason Stop Dose Admin Acetaminophen 650 mg 10/29/21 17:04 11/12/21 22:53 Acetaminophen 650 Mg Rect Supp MD 650 mg Q6H PRN Administration Pain MILD(1-3)/Fever >100.5/NIEVES Acetaminophen 650 mg 11/19/21 16:35 12/02/21 18:20 Acetaminophen 325 Mg Tab PO 650 mg Q6HR PRN Administration PAIN Albumin Human 50 gm 12/02/21 11:00 12/02/21 11:55 Albumin Human 25% (25 Gm/100 Ml) Inj IV 50 gm ZACH PRN Administration Hypotension Alprazolam 0.25 mg 11/14/21 14:29 12/07/21 12:00 Alprazolam 0.25 Mg Tab PO 0.25 mg Q8H PRN Administration Anxiety Amiodarone HCl 200 mg 12/06/21 12:00 12/08/21 21:32 Amiodarone 200 Mg Tab PO 200 mg BID RAMON Administration Docusate Sodium 100 mg 11/18/21 15:00 12/08/21 21:32 Docusate Sodium 100 Mg Cap PO 100 mg BID RAMON Administration Epoetin [place]-epbx 10,000 unit 12/06/21 10:00 12/07/21 15:30 Epoetin [place]-Epbx 10,000 Unit/1 Ml Vial IV 10,000 unit ZACH PRN Administration hemodialysis Famotidine 10 mg 11/06/21 10:00 12/08/21 21:32 Famotidine 10 Mg Tab PO 10 mg BID RAMON Administration Gabapentin 100 mg 11/28/21 14:00 12/09/21 05:58 Gabapentin 100 Mg Cap PO 100 mg Q8HR RAMON Administration Heparin Sodium (Porcine) 4,000 unit 12/01/21 07:50 12/02/21 17:22 Heparin 10,000 Units/10 Ml Vial 40 unit/kg (4300 unit) 4,000 unit IV Administration Q6H PRN Anti-Xa Assay < 0.1 units/ml Hydrophilic Ointment 1 applic 10/29/21 14:29 11/09/21 08:51 Lip Therapy Vaseline TP 1 applic Q2HR PRN Administration Dry Lips Heparin Sodium/Sodium Chloride 25,000 unit in 500 mls @ 30 mls/hr 11/28/21 17:00 12/09/21 05:53 Heparin/ 0.45% Nacl-25,000 Unit/500 Ml IV 1,750 units/hr TITR RAMON 35 mls/hr Administration Protocol 1,500 UNITS/HR Sodium Chloride 100 mls @ 999 mls/hr 12/01/21 14:44 Nacl 0.9% IV ZACH PRN Hypotension Insulin Human Lispro 0 unit 11/25/21 22:00 12/09/21 09:26 Insulin Lispro 100 Unit/Ml SUB-Q Not Given ACHS [facility] Protocol Lactulose 20 gm 11/18/21 14:43 12/06/21 15:26 Lactulose 20 Gm/30 Ml Oral Liqd PO 20 gm Q6H PRN Administration Constipation Melatonin 10 mg 11/22/21 17:31 12/05/21 22:38 Melatonin 5 Mg Tab PO 10 mg QHS PRN Administration Sleep Metoprolol Tartrate 100 mg 12/07/21 11:00 12/08/21 21:32 Metoprolol Tartrate 50 Mg Tab PO 100 mg BID [facility] Administration Midodrine 10 mg 12/01/21 12:00 12/09/21 09:26 Midodrine 5 Mg Tab PO Not Given TID@0800,1200,1600 [facility] Morphine Sulfate 1 mg 11/28/21 15:00 12/03/21 21:43 Morphine 2 Mg/1 Ml Inj IV 1 mg Q4H PRN Administration Pain, Moderate (4-6) Multi-Ingred Cream/Lotion/Oil/Oint 1 applic 10/29/21 14:29 11/06/21 09:25 Mineral Oil/Petrolatum, White Ophth Oint 3.5 Gm OU 1 applic Q4HR PRN Administration Dry Eye(s) Oxycodone/Acetaminophen 1 tab 11/27/21 14:31 12/05/21 22:39 Oxycodone /Acetaminophen 5-325mg Tab PO 1 tab Q4H PRN Administration Pain, Moderate (4-6) Polyethylene Glycol 17 gm 11/20/21 12:47 12/08/21 09:54 Polyethylene Glycol 3350 17 Gm Powder PO 17 gm QDAY PRN Administration Constipation Senna/Docusate Sodium 1 tab 11/16/21 22:00 12/08/21 21:32 Sennosides/Docusate Sodium 8.6/50 Mg Tab PO 1 tab BID RAMON Administration Sodium Chloride 10 ml 10/29/21 22:00 12/08/21 21:32 Sodium Chloride 0.9% 10 Ml Flush Syringe IV 10 ml BID RAMON Administration Sodium Chloride 10 ml 10/29/21 17:04 Sodium Chloride 0.9% 10 Ml Flush Syringe IV PRN PRN LINE FLUSH Nutrition/Malnutrition Assess - Dietary Evaluation Nutrition/Malnutrition Findings: Nutrition Notes Start: 10/30/21 09:50 Freq: Status: Active Protocol: Document 12/05/21 17:37 MEENU (Rec: 12/05/21 17:55 MEENU [email or web address]) Nutrition Notes Initial or Follow up Brief Note Current Diagnosis Acute Kidney Injury,Sepsis, Hypertension Other Pertinent Diagnosis s/p cardiac arrest, anemia Current Diet [facility] Soft- Diet + D Supplement (since D 12/02). Height 5 ft 10 in Weight 114.8 kg Helen Body Weight (kg) 68.18 BMI 36.3 Weight change and time frame No body weight change reported in 3 days. Weight Status Obese Subjective/Other Information RD consult for routine F/U on Dietary tolerance. Pt's PO intake of meals has improved to 75% and well tolerated, according to ADL notes. Pt still receiving vasopressors. Percent of energy/protein needs met: Prescribed Renal Diet provides for energy/protein needs (2, 072 Kcal/77 g) during LOS; additionally, Dietary Supplements will compensate for possible poor or insufficient PO intake of meals with 425 Kcal and 19 g of protein. Current % PO Good (75-100%) #1 Nutrition Diagnosis Inadequate oral intake Comments: Pt's PO intake of meals has been at 75%, and well tolerated, according to ADL notes. Diet advanced to Renal - mechanical soft-. Diagnosis Progress(for reassessment Improved documentation) Is patient on ventilator? No Is Patient Ambulatory and/or Out of Bed No REE-([facility]-confined to bed) 2120.952 Kcal/Kg value to use for calculation 14 Approximate Energy Requirements Using 1607 kcal/Kg Calculation Used for Recommendations Kcal/kg Additional Notes Protein: >1.2 g/Kg AdjBW; >110 g/day. Fluids: 1-1.5 L/day, or as per MD. Nutrition Intervention Change Diet Order: Continue Renal -mechanical soft- Diet. Add Supplement/Snack (indicate name/kcal Nepro once daily (vanilla) /protein ) Provides kCal: 425 Provides Protein (gm) 19 Goal #1 Compensate, through dietary supplementation, for possible poor or insufficient PO intake of meals during LOS. Goal #2 Facilitate PO intake of meals with mechanical modification during LOS. Goal #3 Maintain body weight within +/ -3% of admission body weight during LOS. Follow-Up By: 12/13/21 Additional Comments Continue monitoring food tolerance, %PO intake of meals , and BM.
--- NOTE | 2021-12-09 12:08 | Progress Note ---
Assessment and Plan Patient is a 66-year-old female with unknown past medical history brought into the ED following outside of hospital cardiac arrest thought to be PEA with thought to have downtime of 7 to 9 minutes however details are unclear S/P PEA cardiopulmonary arrest- Acute hypoxic respiratory failure-pulm following Septic shock Bacteremia Pneumonia Acute renal failure on HD-nephrology following Atrial flutter w/ RVR Pneumothorax- s/p CT Acute bilateral DVT-on Heparin gtt Hypokalemia Transaminitis Retroperitoneal Hematoma s/p IVC Echo 10/30/2021-technically difficult study due to body habitus. EF 25 to 30%. Right ventricular systolic function is normal. No pericardial effusion Plan: Previously on metoprolol 100 mg p.o. twice daily, aldactone 25mg PO QD, and losartan 25 mg p.o. daily Continue metoprolol 100 mg p.o. twice daily for rate control. Decrease to amiodarone 200 mg p.o. daily Per documentation patient had episode of hypotension during dialysis losartan was held. Due to hypotension we will continue to hold losartan Volume management per nephrology due to end-stage renal disease on hemodialysis Patient previously anticoagulated on heparin drip. Recommend transitioning to Eliquis when cleared by vascular Patient requires ischemic eval however due to patient's multiple other comorb idities and instability at this time unable to do as an inpatient. Will plan for outpatient ischemic eval Patient seen in conjunction with Dr. Johnson who agrees with this plan of care - Patient Problems (1) Cardiopulmonary arrest Current Visit: Yes Status: Acute (2) Hypokalemia Current Visit: Yes Status: Acute (3) Transaminitis Current Visit: Yes Status: Acute (4) Aspiration pneumonia Current Visit: Yes Status: Acute (5) Acute hypoxemic respiratory failure Current Visit: Yes Status: Acute (6) Septic shock Current Visit: Yes Status: Acute (7) Toxic metabolic encephalopathy Current Visit: Yes Status: Acute (8) Shock liver Current Visit: Yes Status: Acute Subjective Date of service: 12/09/21 Principal diagnosis: AHRF; Cardiac arrest; R. pneumothorax; pneumonia; AMS; DVT's; SIERRA; Obesity Interval history: Patient for permacath placement Patient A. fib rate trending 80s-90s. No events on monitor Objective Vital Signs Temp Pulse Resp BP Pulse Ox 12/09/21 10:48 119 H 145/97 12/09/21 10:46 97.3 F L 120 H 19 145/97 99 12/09/21 10:00 96 12/09/21 08:00 97.7 F 54 L 22 112/60 100 12/09/21 04:00 51 L 12/09/21 03:46 98.3 F 51 L 18 109/66 99 12/08/21 23:31 97.9 F 45 L 18 118/68 97 12/08/21 22:00 97 12/08/21 20:00 100 12/08/21 19:27 97.3 F L 63 18 117/67 99 12/08/21 18:29 100 12/08/21 17:26 98.0 F 56 L 18 123/73 98 - Physical Examination General: No Apparent Distress HEENT: Positive: EOMI, Normocephaly Neck: Positive: trachea midline. Negative: JVD/HJR Cardiac: Positive: irregularly irregular Lungs: Positive: Decreased Breath Sounds Neuro: Positive: Grossly Intact Abdomen: Positive: Soft Skin: Negative: Rash Musculoskeletal: No Pain Extremities: Present: upper extr. pulses, edema, warm - Labs and Meds Comprehensive Metabolic Panel 12/09/21 Range/Units 07:05 Sodium 124 L (137-145) mmol/L Potassium 5.0 (3.6-5.0) mmol/L Chloride 89.9 L (98-107) mmol/L Carbon Dioxide 22 (22-30) mmol/L BUN 45 H (7-17) mg/dL Creatinine 3.5 H (0.6-1.2) mg/dL Glucose 94 (65-100) mg/dL Calcium 8.5 (8.4-10.2) mg/dL - Imaging and Cardiology EKG: report reviewed, image reviewed Echo: report reviewed - Telemetry EKG Rhythm: Atrial Fibrillation - EKG Supraventricular dysrhythmia: atrial fibrillation Ventricular dysrhythmias: ventricular premature com Repolarization changes or abnormalities: nonspecific abnormality, ST segment, and/or T wave Myocardial infarction: septal AL (old age or ind - Allied health notes Allied health notes reviewed: nursing
--- NOTE | 2021-12-09 12:44 | Progress Note ---
Assessment and Plan Cultures: 10/29/2021 sputum culture: Usual respiratory giorgio 10/29/2021 urine culture: No growth 10/29/2021 blood culture: No growth 11/01/2021 tracheal aspirate culture: No growth 11/10/2021 tracheal aspirate culture: Usual respiratory giorgio 11/13/2021 blood culture: No growth 11/29/2021 urine culture: Mixed giorgio 11/29/2021 blood culture: 1 out of 4 bottles positive for coag negative staph A/P: 66-year-old female past medical history obesity presented to the hospital after cardiac arrest: #Coagulase negative staph bacteremia: Likely contaminant, 1 of 4 bottles. #Acute leukocytosis: Possibly related to large subacute left-sided retroperitoneal hematoma. CT chest, abdomen and pelvis on 12/01/2021 did not reveal any other infectious etiology. #Retroperitoneal bleed #Rib fractures secondary to CPR #Acute DVT in the left posterior tibial vein and bilateral peroneal veins #S/P cardiac arrest #SIERRA on HD: Renally dose medications. Recs: -Remains afebrile with non-focal exam. No diarrhea, no decubiti/skin wounds. No clear infectious etiology noted on imaging -if she spikes a fever, get blood cultures and start IV Cefepime + Vancomycin. For now, continue to monitor off abx. Simran Marcelino MD, FACP, [facility] O: [phone] F: [phone] C: [phone] Subjective Date of service: 12/09/21 Principal diagnosis: AHRF; Cardiac arrest; R. pneumothorax; pneumonia; AMS; DVT's; SIERRA; Obesity Interval history: No fever. Denies any complaints. Got PermCath placed. Objective - Exam Narrative Exam: Physical Exam: Constitutional: Alert, cooperative. No acute distress. Morbid obesity Head, Ears, Nose: Normocephalic, atraumatic. External ears, nose normal Eyes: Conjunctivae/corneas clear. No icterus. No ptosis. Neck: Supple, no meningeal signs Cardiovascular: S1, S2 + Respiratory: AE fair bilaterally GI: Soft, non-tender; bowel sounds normal. No peritoneal signs Musculoskeletal: 2+ b/l pedal edema. R upper chest PermCath + Skin: No rash or abscess Hem/Lymphatic: No palpable cervical or supraclavicular nodes. No lymphangitis Psych: Mood ok. Affect normal Neurological: Awake, alert, oriented. No gross abnormality - Constitutional Vitals: Vital Signs Temp Pulse Resp BP Pulse Ox 97.3 F L 119 H 19 145/97 99 12/09/21 10:46 12/09/21 10:48 12/09/21 10:46 12/09/21 10:48 12/09/21 10:46 Temperature -Last 24 Hours Temperature 97.3 F Temperature 97.7 F Temperature 98.3 F Temperature 97.9 F Temperature 97.3 F Temperature 98.0 F - Labs CBC & Chem 7: 12/08/21 04:53 12/09/21 07:05 Labs: Abnormal lab results 12/08/21 12/08/21 12/09/21 Range/Units 16:55 21:18 07:05 Sodium 124 L (137-145) mmol/L Chloride 89.9 L (98-107) mmol/L BUN 45 H (7-17) mg/dL Creatinine 3.5 H (0.6-1.2) mg/dL POC Glucose 112 H 122 H (70-105) mg/dL
--- NOTE | 2021-12-09 19:55 | Progress Note ---
Assessment and Plan 66 YO Female with Obesity presents to ED for evaluation. Patient is intubated and on ventilatory support . Patient was attending [facility] services when the patient collapsed and lost consciousness. Witnesses began CPR. EMS was notified and upon arrival the patient was found to be in distress without perfusing cardiac rhythm. Patient initiated on ACLS protocol and subsequently intubated in the field and subsequent transported to [facility] for further care and evaluation of the aforementioned symptoms. The patient regained spontaneous ci rculation during transport. Patient seen and evaluated upon arrival and found to have acute hypoxemic respiratory failure, septic shock suspected secondary to aspiration pneumonia, metabolic acidosis, toxic metabolic encephalopathy, shock liver, and cardiac arrest with return of perfusing cardiac rhythm after initiation of ACLS protocol. Patient initiated on sepsis protocol as well as pneumonia protocol. Patient admitted to ICU. No reports of fever, chills, chest pain, palpitation, productive cough, skin rash, recent contact, known exposure to COVID-19. Patient has history of diabetes and hypertension. According to the chart review, patient has no history of smoking, alcohol or drug abuse. Patient eventually extubated. Patient transfered to Telemetry. Patient presently sleeping. on 2 litres O2. O2 saturation 100%. Patient Obese , No acute respiratory distress. Patient afebrile. No leukocytosis. Blood pressure 99/58, pulse 85, Respirations 18. Chest xray done 11/18/21 reported Improving interstitial edema. Bilateral duplex study of legs 11/21/21 reported Acute occlusive thrombus is now visualized within the right peroneal veins. There is propagation of the left calf DVT into the popliteal vein on today's exam (near occlusive). CTA of chest:12/01/21 reported The exam is limited secondary to respiratory motion artifact. Low lung volumes. No central pulmonary thromboembolus is identified. The thoracic aorta is grossly unremarkable without aneurysm or dissection. Mild bibasilar atelectasis are present. Incidentally there are multiple healing anterior rib fractures involving the first, second, third, fourth, fifth, sixth and seventh ribs bilaterally. There is a nondisplaced fracture involving the left eighth rib. Patient presently on famotidine. I/V Heparin. DVT Management as per vascular surgery. - Patient Problems (1) Acute hypoxemic respiratory failure Current Visit: Yes Status: Acute Plan to address problem: Patient presently on 2 litres O2. O2 saturation 100%. No acute respiratory distress. (2) Cardiopulmonary arrest Current Visit: Yes Status: Acute Plan to address problem: S/P Resucitation to ROSC. (3) Atrial fibrillation and flutter Current Visit: Yes Status: Acute Plan to address problem: Management as per cardiology. Patient is on I/V Heparin. (4) Acute metabolic encephalopathy Current Visit: Yes Status: Acute Plan to address problem: Management as per primary care. (5) Acute kidney injury Current Visit: Yes Status: Acute Plan to address problem: Management as per nephrology. (6) DVT (deep venous thrombosis) Current Visit: Yes Status: Acute Qualifiers: Affected thrombotic vein of extremity: peroneal Plan to address problem: Patient is on I/V Heparin. Management as per vascular surgery. (7) Obesity hypoventilation syndrome Current Visit: Yes Status: Acute Plan to address problem: Recommend sleep study as out patient. Dietary consultion for weight reduction diet. Recommend BIPAP during night time PRN for day time sleepiness. (8) Pneumothorax, right Current Visit: Yes Status: Acute Plan to address problem: S/P chest tube placement and expansion of right lung. Subjective Date of service: 12/09/21 Principal diagnosis: AHRF; Cardiac arrest; R. pneumothorax; pneumonia; AMS; DVT's; SIERRA; Obesity Interval history: 66 YO Female with Obesity presents to ED for evaluation. Patient is intubated and on ventilatory support . Patient was attending [facility] services when the patient collapsed and lost consciousness. Witnesses began CPR. EMS was notified and upon arrival the patient was found to be in distress without perfusing cardiac rhythm. Patient initiated on ACLS protocol and subsequently intubated in the field and subsequent transported to [facility] for further care and evaluation of the aforementioned symptoms. The patient regained spontaneous circulation during transport. Patient seen and evaluated upon arrival and found to have acute hypoxemic respiratory failure, septic shock suspected secondary to aspiration pneumonia, metabolic acidosis, toxic metabolic encephalopathy, shock liver, and cardiac arrest with return of perfusing cardiac rhythm after initiation of ACLS protocol. Patient initiated on sepsis protocol as well as pneumonia protocol. Patient admitted to ICU. No reports of fever, chills, chest pain, palpitation, productive cough, skin rash, recent contact, known exposure to COVID-19. Patient has history of diabetes and hypertension. According to the chart review, patient has no history of smoking, alcohol or drug abuse. Patient eventually extubated. Patient transfered to Telemetry. Patient presently sleeping. on 2 litres O2. O2 saturation 100%. Patient Obese , No acute respiratory distress. Patient afebrile. No leukocytosis. Blood pressure 99/58, pulse 85, Respirations 18. Chest xray done 11/18/21 reported Improving interstitial edema. Bilateral duplex study of legs 11/21/21 reported Acute occlusive thrombus is now visualized within the right peroneal veins. There is propagation of the left calf DVT into the popliteal vein on today's exam (near occlusive). CTA of chest:12/01/21 reported The exam is limited secondary to respiratory motion artifact. Low lung volumes. No central pulmonary thromboembolus is identified. The thoracic aorta is grossly unremarkable without aneurysm or dissection. Mild bibasilar atelectasis are present. Incidentally there are multiple healing anterior rib fractures involving the first, second, third, fourth, fifth, sixth and seventh ribs bilaterally. There is a nondisplaced fracture involving the left eighth rib. Patient presently on famotidine. I/V Heparin. DVT Management as per vascular surgery. Objective Vital Signs - 12hr 12/09/21 12/09/21 12/09/21 08:00 10:00 10:46 Temperature 97.7 F 97.3 F L Pulse Rate 78 120 H Respiratory 22 19 Rate Blood Pressure 112/60 145/97 O2 Sat by Pulse 100 96 99 Oximetry O2 Sat by Pulse Oximetry [ Anterior Bilateral Throughout] 12/09/21 12/09/21 12/09/21 10:48 12:00 14:30 Temperature 97.5 F L Pulse Rate 119 H 120 H 99 H Respiratory 20 Rate Blood Pressure 145/97 141/71 O2 Sat by Pulse Oximetry O2 Sat by Pulse 95 Oximetry [ Anterior Bilateral Throughout] 12/09/21 12/09/21 12/09/21 14:45 15:00 15:15 Temperature Pulse Rate 108 H 89 93 H Respiratory Rate Blood Pressure 138/88 117/87 123/56 O2 Sat by Pulse Oximetry O2 Sat by Pulse Oximetry [ Anterior Bilateral Throughout] 12/09/21 12/09/21 12/09/21 15:30 15:45 16:00 Temperature Pulse Rate 80 85 83 Respiratory Rate Blood Pressure 122/63 123/64 121/53 O2 Sat by Pulse Oximetry O2 Sat by Pulse Oximetry [ Anterior Bilateral Throughout] 12/09/21 12/09/21 12/09/21 16:15 16:30 16:45 Temperature Pulse Rate 83 80 87 Respiratory Rate Blood Pressure 115/89 120/66 127/72 O2 Sat by Pulse Oximetry O2 Sat by Pulse Oximetry [ Anterior Bilateral Throughout] 12/09/21 12/09/21 12/09/21 17:00 17:15 17:30 Temperature Pulse Rate 72 72 77 Respiratory Rate Blood Pressure 121/65 124/62 118/54 O2 Sat by Pulse Oximetry O2 Sat by Pulse Oximetry [ Anterior Bilateral Throughout] 12/09/21 12/09/21 17:45 18:00 Temperature 98.0 F Pulse Rate 79 78 Respiratory 18 Rate Blood Pressure 118/60 113/56 O2 Sat by Pulse Oximetry O2 Sat by Pulse 100 Oximetry [ Anterior Bilateral Throughout] Constitutional: no acute distress, asleep, other (elderly obese female with mi ldly increased respiratory effort at rest ) Eyes: non-icteric ENT: oropharynx moist Neck: supple, no lymphadenopathy, no JVD, other (large circumference) Effort: normal Ascultation: Bilateral: diminished breath sounds, rhonchi (bases) Percussion: Bilateral: not dull Cardiovascular: regular rate and rhythm, other (no R/M) Gastrointestinal: normoactive bowel sounds, soft, non-tender, other (obese) Integumentary: normal, other (Left flank ecchymosis with induration) Extremities: no cyanosis, pulses normal, no ischemia or petechiae, edema (2+) Neurologic: normal mental status, non-focal exam (grossly), pupils equal and ro und, motor strength normal and (weak) Psychiatric: mood appropriate, affect normal CBC and BMP: 12/10/21 05:22 12/10/21 05:22 ABG, PT/INR, D-dimer: ABG ABG pH 7.450 pH Units (7.350-7.450) 12/01/21 Unknown ABG pCO2 38.0 mm Hg 12/01/21 Unknown ABG pO2 88.9 mm Hg (80.0-90.0) 12/01/21 Unknown ABG O2 Saturation 97.2 % (95.0-99.0) 12/01/21 Unknown PT/INR, D-dimer PT 17.2 Sec. (12.2-14.9) H 10/30/21 16:30 INR 1.27 (0.87-1.13) H 10/30/21 16:30 D-Dimer > 89743 ng/mlDDU (0-234) H 10/30/21 Unknown Abnormal lab findings: Abnormal Labs 10/29/21 10/29/21 10/29/21 15:10 15:10 15:10 WBC 27.8 H RBC Hgb Hct MCH 27 L RDW Plt Count Lymph % (Auto) [place] % (Auto) Lymph # (Auto) [place] # (Auto) Seg Neutrophils % Seg Neuts % (Manual) 78.0 H Lymphocytes % (Manual) 10.0 L Monocytes % (Manual) Nucleated RBC % Seg Neutrophils # Seg Neutrophils # Man 21.7 H Monocytes # (Manual) 1.4 H Eosinophils # (Manual) Basophils # (Manual) PT INR APTT D-Dimer Heparin Anti-Xa Level ABG pH ABG pO2 ABG HCO3 ABG O2 Saturation ABG Base Excess ABG Hemoglobin Oxyhemoglobin Sodium Potassium Chloride Carbon Dioxide BUN Creatinine Glucose POC Glucose Hemoglobin A1c Lactic Acid 6.80 H* Calcium Phosphorus Magnesium Ferritin AST ALT Alkaline Phosphatase Lactate Dehydrogenase Troponin T 0.089 H C-Reactive Protein Total Protein Albumin LDL Cholesterol Direct Urine Creatinine Urine Total Protein Salicylates Acetaminophen Crossmatch 10/29/21 10/29/21 10/29/21 15:10 15:10 15:10 WBC RBC Hgb Hct MCH RDW Plt Count Lymph % (Auto) [place] % (Auto) Lymph # (Auto) [place] # (Auto) Seg Neutrophils % Seg Neuts % (Manual) Lymphocytes % (Manual) Monocytes % (Manual) Nucleated RBC % Seg Neutrophils # Seg Neutrophils # Man Monocytes # (Manual) Eosinophils # (Manual) Basophils # (Manual) PT INR APTT D-Dimer Heparin Anti-Xa Level ABG pH ABG pO2 ABG HCO3 ABG O2 Saturation ABG Base Excess ABG Hemoglobin Oxyhemoglobin Sodium 136 L Potassium 2.8 L* Chloride 93.4 L Carbon Dioxide 20 L BUN Creatinine Glucose 330 H POC Glucose Hemoglobin A1c Lactic Acid Calcium Phosphorus Magnesium Ferritin AST 1013 H ALT 1289 H Alkaline Phosphatase 246 H Lactate Dehydrogenase Troponin T C-Reactive Protein Total Protein Albumin LDL Cholesterol Direct Urine Creatinine Urine Total Protein Salicylates < 0.3 L Acetaminophen 5.0 L Crossmatch 02/05/22 02/05/22 02/05/22 15:11 16:01 19:29 WBC RBC Hgb Hct MCH RDW Plt Count Lymph % (Auto) [place] % (Auto) Lymph # (Auto) [place] # (Auto) Seg Neutrophils % Seg Neuts % (Manual) Lymphocytes % (Manual) Monocytes % (Manual) Nucleated RBC % Seg Neutrophils # Seg Neutrophils # Man Monocytes # (Manual) Eosinophils # (Manual) Basophils # (Manual) PT INR APTT D-Dimer Heparin Anti-Xa Level ABG pH 7.307 L ABG pO2 64.1 L ABG HCO3 ABG O2 Saturation 90.8 L ABG Base Excess -2.9 L ABG Hemoglobin Oxyhemoglobin 89.3 L Sodium Potassium Chloride Carbon Dioxide BUN Creatinine Glucose POC Glucose Hemoglobin A1c Lactic Acid 2.60 H* Calcium Phosphorus Magnesium 2.90 H Ferritin AST ALT Alkaline Phosphatase Lactate Dehydrogenase Troponin T C-Reactive Protein Total Protein Albumin LDL Cholesterol Direct Urine Creatinine Urine Total Protein Salicylates Acetaminophen Crossmatch 10/29/21 10/29/21 10/30/21 19:40 22:34 04:30 WBC 16.2 H RBC Hgb Hct MCH 26 L RDW 15.5 H Plt Count Lymph % (Auto) 6.2 L [place] % (Auto) Lymph # (Auto) 1.0 L [place] # (Auto) 0.9 H Seg Neutrophils % 88.1 H Seg Neuts % (Manual) Lymphocytes % (Manual) Monocytes % (Manual) Nucleated RBC % Seg Neutrophils # 14.2 H Seg Neutrophils # Man Monocytes # (Manual) Eosinophils # (Manual) Basophils # (Manual) PT INR APTT D-Dimer Heparin Anti-Xa Level ABG pH ABG pO2 ABG HCO3 ABG O2 Saturation ABG Base Excess ABG Hemoglobin Oxyhemoglobin Sodium Potassium Chloride Carbon Dioxide BUN Creatinine Glucose POC Glucose Hemoglobin A1c Lactic Acid Calcium Phosphorus Magnesium Ferritin AST ALT Alkaline Phosphatase Lactate Dehydrogenase Troponin T 1.950 H* D 1.150 H* D C-Reactive Protein Total Protein Albumin LDL Cholesterol Direct 43 L Urine Creatinine Urine Total Protein Salicylates Acetaminophen Crossmatch 10/30/21 10/30/21 10/30/21 04:30 04:35 05:45 WBC RBC Hgb Hct MCH RDW Plt Count Lymph % (Auto) [place] % (Auto) Lymph # (Auto) [place] # (Auto) Seg Neutrophils % Seg Neuts % (Manual) Lymphocytes % (Manual) Monocytes % (Manual) Nucleated RBC % Seg Neutrophils # Seg Neutrophils # Man Monocytes # (Manual) Eosinophils # (Manual) Basophils # (Manual) PT INR APTT D-Dimer Heparin Anti-Xa Level ABG pH ABG pO2 69.5 L ABG HCO3 ABG O2 Saturation ABG Base Excess -2.7 L ABG Hemoglobin Oxyhemoglobin 94.7 L Sodium Potassium Chloride Carbon Dioxide 21 L BUN Creatinine Glucose 159 H POC Glucose 151 H Hemoglobin A1c Lactic Acid Calcium 7.9 L D Phosphorus Magnesium Ferritin AST 461 H ALT 686 H Alkaline Phosphatase 130 H Lactate Dehydrogenase Troponin T C-Reactive Protein Total Protein 5.6 L D Albumin 3.2 L LDL Cholesterol Direct Urine Creatinine Urine Total Protein Salicylates Acetaminophen Crossmatch 10/30/21 10/30/21 10/30/21 11:24 15:59 16:30 WBC RBC Hgb Hct MCH RDW Plt Count Lymph % (Auto) [place] % (Auto) Lymph # (Auto) [place] # (Auto) Seg Neutrophils % Seg Neuts % (Manual) Lymphocytes % (Manual) Monocytes % (Manual) Nucleated RBC % Seg Neutrophils # Seg Neutrophils # Man Monocytes # (Manual) Eosinophils # (Manual) Basophils # (Manual) PT 17.2 H INR 1.27 H APTT 44.4 H D-Dimer Heparin Anti-Xa Level ABG pH ABG pO2 ABG HCO3 ABG O2 Saturation ABG Base Excess ABG Hemoglobin Oxyhemoglobin Sodium Potassium Chloride Carbon Dioxide BUN Creatinine Glucose POC Glucose 153 H 109 H Hemoglobin A1c Lactic Acid Calcium Phosphorus Magnesium Ferritin AST ALT Alkaline Phosphatase Lactate Dehydrogenase Troponin T C-Reactive Protein Total Protein Albumin LDL Cholesterol Direct Urine Creatinine Urine Total Protein Salicylates Acetaminophen Crossmatch 10/30/21 10/30/21 10/30/21 23:00 Unknown Unknown WBC RBC Hgb Hct MCH RDW Plt Count Lymph % (Auto) [place] % (Auto) Lymph # (Auto) [place] # (Auto) Seg Neutrophils % Seg Neuts % (Manual) Lymphocytes % (Manual) Monocytes % (Manual) Nucleated RBC % Seg Neutrophils # Seg Neutrophils # Man Monocytes # (Manual) Eosinophils # (Manual) Basophils # (Manual) PT INR APTT D-Dimer > 37740 H Heparin Anti-Xa Level 0.82 H ABG pH ABG pO2 ABG HCO3 ABG O2 Saturation ABG Base Excess ABG Hemoglobin Oxyhemoglobin Sodium Potassium Chloride Carbon Dioxide BUN Creatinine Glucose POC Glucose Hemoglobin A1c Lactic Acid Calcium Phosphorus Magnesium Ferritin 208.4 H AST ALT Alkaline Phosphatase Lactate Dehydrogenase Troponin T C-Reactive Protein Total Protein Albumin LDL Cholesterol Direct Urine Creatinine Urine Total Protein Salicylates Acetaminophen Crossmatch 10/30/21 10/31/21 10/31/21 Unknown 04:30 04:30 WBC 14.4 H RBC Hgb Hct MCH 26 L RDW Plt Count Lymph % (Auto) [place] % (Auto) Lymph # (Auto) [place] # (Auto) Seg Neutrophils % Seg Neuts % (Manual) Lymphocytes % (Manual) Monocytes % (Manual) Nucleated RBC % Seg Neutrophils # Seg Neutrophils # Man Monocytes # (Manual) Eosinophils # (Manual) Basophils # (Manual) PT INR APTT D-Dimer Heparin Anti-Xa Level ABG pH ABG pO2 ABG HCO3 ABG O2 Saturation ABG Base Excess ABG Hemoglobin Oxyhemoglobin Sodium Potassium 3.5 L Chloride 107.5 H Carbon Dioxide 20 L BUN 28 H Creatinine 1.7 H Glucose 113 H POC Glucose Hemoglobin A1c Lactic Acid Calcium 7.9 L Phosphorus Magnesium Ferritin AST ALT Alkaline Phosphatase Lactate Dehydrogenase 469 H Troponin T C-Reactive Protein 13.40 H Total Protein Albumin LDL Cholesterol Direct Urine Creatinine Urine Total Protein Salicylates Acetaminophen Crossmatch 10/31/21 10/31/21 10/31/21 04:30 05:11 15:30 WBC RBC Hgb Hct MCH RDW Plt Count Lymph % (Auto) [place] % (Auto) Lymph # (Auto) [place] # (Auto) Seg Neutrophils % Seg Neuts % (Manual) Lymphocytes % (Manual) Monocytes % (Manual) Nucleated RBC % Seg Neutrophils # Seg Neutrophils # Man Monocytes # (Manual) Eosinophils # (Manual) Basophils # (Manual) PT INR APTT D-Dimer Heparin Anti-Xa Level ABG pH 7.222 L ABG pO2 61.5 L ABG HCO3 ABG O2 Saturation 86.2 L ABG Base Excess -6.3 L ABG Hemoglobin 11.2 L Oxyhemoglobin 84.5 L Sodium Potassium Chloride Carbon Dioxide BUN Creatinine Glucose POC Glucose 106 H Hemoglobin A1c 6.7 H Lactic Acid Calcium Phosphorus Magnesium Ferritin AST ALT Alkaline Phosphatase Lactate Dehydrogenase Troponin T C-Reactive Protein Total Protein Albumin LDL Cholesterol Direct Urine Creatinine Urine Total Protein Salicylates Acetaminophen Crossmatch 10/31/21 10/31/21 10/31/21 16:07 16:35 17:45 WBC RBC Hgb Hct MCH RDW Plt Count Lymph % (Auto) [place] % (Auto) Lymph # (Auto) [place] # (Auto) Seg Neutrophils % Seg Neuts % (Manual) Lymphocytes % (Manual) Monocytes % (Manual) Nucleated RBC % Seg Neutrophils # Seg Neutrophils # Man Monocytes # (Manual) Eosinophils # (Manual) Basophils # (Manual) PT INR APTT D-Dimer Heparin Anti-Xa Level ABG pH 7.267 L ABG pO2 58.3 L ABG HCO3 ABG O2 Saturation 88.3 L ABG Base Excess -5.9 L ABG Hemoglobin 10.1 L Oxyhemoglobin 86.5 L Sodium Potassium Chloride Carbon Dioxide BUN Creatinine Glucose POC Glucose 115 H Hemoglobin A1c Lactic Acid Calcium Phosphorus Magnesium Ferritin AST ALT Alkaline Phosphatase Lactate Dehydrogenase Troponin T C-Reactive Protein Total Protein Albumin LDL Cholesterol Direct Urine Creatinine 383.6 H Urine Total Protein Salicylates Acetaminophen Crossmatch 11/01/21 11/01/21 11/01/21 00:06 05:08 06:00 WBC 12.6 H RBC 3.43 L Hgb 8.9 L Hct 28.7 L MCH 26 L RDW 15.7 H Plt Count 130 L Lymph % (Auto) [place] % (Auto) Lymph # (Auto) [place] # (Auto) Seg Neutrophils % Seg Neuts % (Manual) Lymphocytes % (Manual) Monocytes % (Manual) Nucleated RBC % Seg Neutrophils # Seg Neutrophils # Man Monocytes # (Manual) Eosinophils # (Manual) Basophils # (Manual) PT INR APTT D-Dimer Heparin Anti-Xa Level ABG pH ABG pO2 ABG HCO3 ABG O2 Saturation ABG Base Excess ABG Hemoglobin Oxyhemoglobin Sodium Potassium Chloride Carbon Dioxide BUN Creatinine Glucose POC Glucose 114 H 120 H Hemoglobin A1c Lactic Acid Calcium Phosphorus Magnesium Ferritin AST ALT Alkaline Phosphatase Lactate Dehydrogenase Troponin T C-Reactive Protein Total Protein Albumin LDL Cholesterol Direct Urine Creatinine Urine Total Protein Salicylates Acetaminophen Crossmatch 11/01/21 11/01/21 11/01/21 06:00 11:43 14:00 WBC RBC Hgb Hct MCH RDW Plt Count Lymph % (Auto) [place] % (Auto) Lymph # (Auto) [place] # (Auto) Seg Neutrophils % Seg Neuts % (Manual) Lymphocytes % (Manual) Monocytes % (Manual) Nucleated RBC % Seg Neutrophils # Seg Neutrophils # Man Monocytes # (Manual) Eosinophils # (Manual) Basophils # (Manual) PT INR APTT D-Dimer Heparin Anti-Xa Level ABG pH 7.349 L ABG pO2 75.6 L ABG HCO3 ABG O2 Saturation ABG Base Excess -3.9 L ABG Hemoglobin 9.8 L Oxyhemoglobin 93.5 L Sodium Potassium Chloride 114.1 H Carbon Dioxide 20 L BUN 33 H Creatinine Glucose 131 H POC Glucose 151 H Hemoglobin A1c Lactic Acid Calcium 7.7 L Phosphorus Magnesium Ferritin AST 79 H ALT 259 H Alkaline Phosphatase Lactate Dehydrogenase Troponin T C-Reactive Protein Total Protein 5.5 L Albumin 2.7 L LDL Cholesterol Direct Urine Creatinine Urine Total Protein Salicylates Acetaminophen Crossmatch 11/01/21 11/01/21 11/02/21 16:45 22:55 05:12 WBC RBC Hgb Hct MCH RDW Plt Count Lymph % (Auto) [place] % (Auto) Lymph # (Auto) [place] # (Auto) Seg Neutrophils % Seg Neuts % (Manual) Lymphocytes % (Manual) Monocytes % (Manual) Nucleated RBC % Seg Neutrophils # Seg Neutrophils # Man Monocytes # (Manual) Eosinophils # (Manual) Basophils # (Manual) PT INR APTT D-Dimer Heparin Anti-Xa Level ABG pH ABG pO2 ABG HCO3 ABG O2 Saturation ABG Base Excess ABG Hemoglobin Oxyhemoglobin Sodium Potassium Chloride Carbon Dioxide BUN Creatinine Glucose POC Glucose 119 H 129 H 140 H Hemoglobin A1c Lactic Acid Calcium Phosphorus Magnesium Ferritin AST ALT Alkaline Phosphatase Lactate Dehydrogenase Troponin T C-Reactive Protein Total Protein Albumin LDL Cholesterol Direct Urine Creatinine Urine Total Protein Salicylates Acetaminophen Crossmatch 11/02/21 11/02/21 11/02/21 05:35 05:35 09:35 WBC 13.5 H RBC 3.60 L Hgb 9.7 L Hct MCH 27 L RDW 15.7 H Plt Count Lymph % (Auto) [place] % (Auto) Lymph # (Auto) [place] # (Auto) Seg Neutrophils % Seg Neuts % (Manual) Lymphocytes % (Manual) Monocytes % (Manual) Nucleated RBC % Seg Neutrophils # Seg Neutrophils # Man Monocytes # (Manual) Eosinophils # (Manual) Basophils # (Manual) PT INR APTT D-Dimer Heparin Anti-Xa Level ABG pH 7.208 L ABG pO2 75.9 L ABG HCO3 ABG O2 Saturation 93.6 L ABG Base Excess -4.3 L ABG Hemoglobin 9.1 L Oxyhemoglobin 91.6 L Sodium Potassium 5.2 H D Chloride 112.6 H Carbon Dioxide BUN 32 H Creatinine Glucose 152 H POC Glucose Hemoglobin A1c Lactic Acid Calcium 8.2 L Phosphorus Magnesium 2.70 H Ferritin AST ALT Alkaline Phosphatase Lactate Dehydrogenase Troponin T C-Reactive Protein Total Protein Albumin LDL Cholesterol Direct Urine Creatinine Urine Total Protein Salicylates Acetaminophen Crossmatch 11/02/21 11/02/21 11/02/21 11:44 17:13 23:43 WBC RBC Hgb Hct MCH RDW Plt Count Lymph % (Auto) [place] % (Auto) Lymph # (Auto) [place] # (Auto) Seg Neutrophils % Seg Neuts % (Manual) Lymphocytes % (Manual) Monocytes % (Manual) Nucleated RBC % Seg Neutrophils # Seg Neutrophils # Man Monocytes # (Manual) Eosinophils # (Manual) Basophils # (Manual) PT INR APTT D-Dimer Heparin Anti-Xa Level ABG pH ABG pO2 ABG HCO3 ABG O2 Saturation ABG Base Excess ABG Hemoglobin Oxyhemoglobin Sodium Potassium Chloride Carbon Dioxide BUN Creatinine Glucose POC Glucose 173 H 148 H 137 H Hemoglobin A1c Lactic Acid Calcium Phosphorus Magnesium Ferritin AST ALT Alkaline Phosphatase Lactate Dehydrogenase Troponin T C-Reactive Protein Total Protein Albumin LDL Cholesterol Direct Urine Creatinine Urine Total Protein Salicylates Acetaminophen Crossmatch 11/03/21 11/03/21 11/03/21 04:59 06:00 06:00 WBC RBC 3.43 L Hgb 9.1 L Hct 29.0 L MCH 26 L RDW 16.4 H Plt Count Lymph % (Auto) [place] % (Auto) Lymph # (Auto) [place] # (Auto) Seg Neutrophils % Seg Neuts % (Manual) Lymphocytes % (Manual) Monocytes % (Manual) Nucleated RBC % Seg Neutrophils # Seg Neutrophils # Man Monocytes # (Manual) Eosinophils # (Manual) Basophils # (Manual) PT INR APTT D-Dimer Heparin Anti-Xa Level 0.17 L ABG pH ABG pO2 ABG HCO3 ABG O2 Saturation ABG Base Excess ABG Hemoglobin Oxyhemoglobin Sodium Potassium Chloride Carbon Dioxide BUN Creatinine Glucose POC Glucose 167 H Hemoglobin A1c Lactic Acid Calcium Phosphorus Magnesium Ferritin AST ALT Alkaline Phosphatase Lactate Dehydrogenase Troponin T C-Reactive Protein Total Protein Albumin LDL Cholesterol Direct Urine Creatinine Urine Total Protein Salicylates Acetaminophen Crossmatch 11/03/21 11/03/21 11/03/21 06:00 09:20 11:58 WBC RBC Hgb Hct MCH RDW Plt Count Lymph % (Auto) [place] % (Auto) Lymph # (Auto) [place] # (Auto) Seg Neutrophils % Seg Neuts % (Manual) Lymphocytes % (Manual) Monocytes % (Manual) Nucleated RBC % Seg Neutrophils # Seg Neutrophils # Man Monocytes # (Manual) Eosinophils # (Manual) Basophils # (Manual) PT INR APTT D-Dimer Heparin Anti-Xa Level ABG pH 7.274 L ABG pO2 75.6 L ABG HCO3 ABG O2 Saturation 94.9 L ABG Base Excess -2.5 L ABG Hemoglobin 9.3 L Oxyhemoglobin 92.9 L Sodium 149 H Potassium Chloride 117.5 H Carbon Dioxide BUN 32 H Creatinine Glucose 173 H POC Glucose 192 H Hemoglobin A1c Lactic Acid Calcium 8.1 L Phosphorus Magnesium Ferritin AST ALT Alkaline Phosphatase Lactate Dehydrogenase Troponin T C-Reactive Protein Total Protein Albumin LDL Cholesterol Direct Urine Creatinine Urine Total Protein Salicylates Acetaminophen Crossmatch 11/03/21 11/03/21 11/04/21 18:22 Unknown 00:09 WBC RBC Hgb Hct MCH RDW Plt Count Lymph % (Auto) [place] % (Auto) Lymph # (Auto) [place] # (Auto) Seg Neutrophils % Seg Neuts % (Manual) Lymphocytes % (Manual) Monocytes % (Manual) Nucleated RBC % Seg Neutrophils # Seg Neutrophils # Man Monocytes # (Manual) Eosinophils # (Manual) Basophils # (Manual) PT INR APTT D-Dimer Heparin Anti-Xa Level 0.29 L ABG pH ABG pO2 ABG HCO3 ABG O2 Saturation ABG Base Excess ABG Hemoglobin Oxyhemoglobin Sodium Potassium Chloride Carbon Dioxide BUN Creatinine Glucose POC Glucose 178 H 221 H Hemoglobin A1c Lactic Acid Calcium Phosphorus Magnesium Ferritin AST ALT Alkaline Phosphatase Lactate Dehydrogenase Troponin T C-Reactive Protein Total Protein Albumin LDL Cholesterol Direct Urine Creatinine Urine Total Protein Salicylates Acetaminophen Crossmatch 11/04/21 11/04/21 11/04/21 05:09 09:40 09:40 WBC 16.8 H RBC Hgb Hct MCH 27 L RDW 16.5 H Plt Count Lymph % (Auto) [place] % (Auto) Lymph # (Auto) [place] # (Auto) Seg Neutrophils % Seg Neuts % (Manual) Lymphocytes % (Manual) Monocytes % (Manual) Nucleated RBC % Seg Neutrophils # Seg Neutrophils # Man Monocytes # (Manual) Eosinophils # (Manual) Basophils # (Manual) PT INR APTT D-Dimer Heparin Anti-Xa Level ABG pH ABG pO2 ABG HCO3 ABG O2 Saturation ABG Base Excess ABG Hemoglobin Oxyhemoglobin Sodium Potassium 5.9 H Chloride 108.5 H Carbon Dioxide BUN 54 H Creatinine 1.8 H Glucose 198 H POC Glucose 182 H Hemoglobin A1c Lactic Acid Calcium Phosphorus Magnesium 3.00 H Ferritin AST ALT Alkaline Phosphatase Lactate Dehydrogenase Troponin T C-Reactive Protein Total Protein Albumin LDL Cholesterol Direct Urine Creatinine Urine Total Protein Salicylates Acetaminophen Crossmatch 11/04/21 11/04/21 11/04/21 12:13 13:34 14:05 WBC RBC Hgb Hct MCH RDW Plt Count Lymph % (Auto) [place] % (Auto) Lymph # (Auto) [place] # (Auto) Seg Neutrophils % Seg Neuts % (Manual) Lymphocytes % (Manual) Monocytes % (Manual) Nucleated RBC % Seg Neutrophils # Seg Neutrophils # Man Monocytes # (Manual) Eosinophils # (Manual) Basophils # (Manual) PT INR APTT D-Dimer Heparin Anti-Xa Level ABG pH 7.223 L ABG pO2 71.3 L ABG HCO3 ABG O2 Saturation 92.8 L ABG Base Excess ABG Hemoglobin 8.2 L Oxyhemoglobin 91.0 L Sodium Potassium Chloride Carbon Dioxide BUN Creatinine Glucose POC Glucose 184 H Hemoglobin A1c Lactic Acid Calcium Phosphorus Magnesium Ferritin AST ALT Alkaline Phosphatase Lactate Dehydrogenase Troponin T C-Reactive Protein Total Protein Albumin LDL Cholesterol Direct Urine Creatinine 184.6 H Urine Total Protein Salicylates Acetaminophen Crossmatch 11/04/21 11/04/21 11/05/21 18:02 Unknown 00:07 WBC RBC Hgb Hct MCH RDW Plt Count Lymph % (Auto) [place] % (Auto) Lymph # (Auto) [place] # (Auto) Seg Neutrophils % Seg Neuts % (Manual) Lymphocytes % (Manual) Monocytes % (Manual) Nucleated RBC % Seg Neutrophils # Seg Neutrophils # Man Monocytes # (Manual) Eosinophils # (Manual) Basophils # (Manual) PT INR APTT D-Dimer Heparin Anti-Xa Level ABG pH ABG pO2 ABG HCO3 ABG O2 Saturation ABG Base Excess ABG Hemoglobin Oxyhemoglobin Sodium Potassium Chloride Carbon Dioxide BUN Creatinine Glucose POC Glucose 262 H 259 H Hemoglobin A1c Lactic Acid Calcium Phosphorus Magnesium Ferritin AST ALT Alkaline Phosphatase Lactate Dehydrogenase Troponin T C-Reactive Protein Total Protein Albumin LDL Cholesterol Direct Urine Creatinine 190.9 H Urine Total Protein 172 H Salicylates Acetaminophen Crossmatch 11/05/21 11/05/21 11/05/21 04:20 04:20 05:30 WBC 17.9 H RBC 3.64 L Hgb 9.7 L Hct MCH 27 L RDW 16.4 H Plt Count Lymph % (Auto) [place] % (Auto) Lymph # (Auto) [place] # (Auto) Seg Neutrophils % Seg Neuts % (Manual) Lymphocytes % (Manual) Monocytes % (Manual) Nucleated RBC % Seg Neutrophils # Seg Neutrophils # Man Monocytes # (Manual) Eosinophils # (Manual) Basophils # (Manual) PT INR APTT D-Dimer Heparin Anti-Xa Level ABG pH ABG pO2 ABG HCO3 ABG O2 Saturation ABG Base Excess ABG Hemoglobin Oxyhemoglobin Sodium Potassium 5.6 H Chloride 108.4 H Carbon Dioxide BUN 71 H Creatinine 1.9 H Glucose 270 H POC Glucose 283 H Hemoglobin A1c Lactic Acid Calcium Phosphorus Magnesium Ferritin AST ALT Alkaline Phosphatase Lactate Dehydrogenase Troponin T C-Reactive Protein Total Protein Albumin LDL Cholesterol Direct Urine Creatinine Urine Total Protein Salicylates Acetaminophen Crossmatch 11/05/21 11/05/21 11/05/21 10:05 12:10 15:29 WBC RBC Hgb Hct MCH RDW Plt Count Lymph % (Auto) [place] % (Auto) Lymph # (Auto) [place] # (Auto) Seg Neutrophils % Seg Neuts % (Manual) Lymphocytes % (Manual) Monocytes % (Manual) Nucleated RBC % Seg Neutrophils # Seg Neutrophils # Man Monocytes # (Manual) Eosinophils # (Manual) Basophils # (Manual) PT INR APTT D-Dimer Heparin Anti-Xa Level ABG pH 7.248 L ABG pO2 73.7 L ABG HCO3 26.2 H ABG O2 Saturation 93.1 L ABG Base Excess ABG Hemoglobin 8.9 L Oxyhemoglobin 91.4 L Sodium Potassium Chloride Carbon Dioxide BUN Creatinine Glucose POC Glucose 225 H 199 H Hemoglobin A1c Lactic Acid Calcium Phosphorus Magnesium Ferritin AST ALT Alkaline Phosphatase Lactate Dehydrogenase Troponin T C-Reactive Protein Total Protein Albumin LDL Cholesterol Direct Urine Creatinine Urine Total Protein Salicylates Acetaminophen Crossmatch 11/05/21 11/05/21 11/05/21 15:51 17:32 17:40 WBC RBC Hgb Hct MCH RDW Plt Count Lymph % (Auto) [place] % (Auto) Lymph # (Auto) [place] # (Auto) Seg Neutrophils % Seg Neuts % (Manual) Lymphocytes % (Manual) Monocytes % (Manual) Nucleated RBC % Seg Neutrophils # Seg Neutrophils # Man Monocytes # (Manual) Eosinophils # (Manual) Basophils # (Manual) PT INR APTT D-Dimer Heparin Anti-Xa Level ABG pH ABG pO2 ABG HCO3 ABG O2 Saturation ABG Base Excess ABG Hemoglobin Oxyhemoglobin Sodium Potassium 5.2 H Chloride 107.8 H Carbon Dioxide BUN 79 H Creatinine 1.9 H Glucose 204 H POC Glucose 278 H 197 H Hemoglobin A1c Lactic Acid Calcium Phosphorus Magnesium Ferritin AST ALT Alkaline Phosphatase Lactate Dehydrogenase Troponin T C-Reactive Protein Total Protein Albumin LDL Cholesterol Direct Urine Creatinine Urine Total Protein Salicylates Acetaminophen Crossmatch 11/05/21 11/05/21 11/05/21 21:25 22:22 23:43 WBC RBC Hgb Hct MCH RDW Plt Count Lymph % (Auto) [place] % (Auto) Lymph # (Auto) [place] # (Auto) Seg Neutrophils % Seg Neuts % (Manual) Lymphocytes % (Manual) Monocytes % (Manual) Nucleated RBC % Seg Neutrophils # Seg Neutrophils # Man Monocytes # (Manual) Eosinophils # (Manual) Basophils # (Manual) PT INR APTT D-Dimer Heparin Anti-Xa Level ABG pH ABG pO2 ABG HCO3 ABG O2 Saturation ABG Base Excess ABG Hemoglobin Oxyhemoglobin Sodium Potassium 5.3 H Chloride 109.2 H Carbon Dioxide BUN 81 H Creatinine 2.0 H Glucose 195 H POC Glucose 180 H 203 H Hemoglobin A1c Lactic Acid Calcium Phosphorus Magnesium Ferritin AST ALT Alkaline Phosphatase Lactate Dehydrogenase Troponin T C-Reactive Protein Total Protein Albumin LDL Cholesterol Direct Urine Creatinine Urine Total Protein Salicylates Acetaminophen Crossmatch 11/05/21 11/06/21 11/06/21 Unknown 02:35 05:09 WBC RBC Hgb Hct MCH RDW Plt Count Lymph % (Auto) [place] % (Auto) Lymph # (Auto) [place] # (Auto) Seg Neutrophils % Seg Neuts % (Manual) Lymphocytes % (Manual) Monocytes % (Manual) Nucleated RBC % Seg Neutrophils # Seg Neutrophils # Man Monocytes # (Manual) Eosinophils # (Manual) Basophils # (Manual) PT INR APTT D-Dimer Heparin Anti-Xa Level ABG pH ABG pO2 ABG HCO3 ABG O2 Saturation ABG Base Excess ABG Hemoglobin Oxyhemoglobin Sodium 146 H Potassium 6.0 H Chloride 108.1 H 107.1 H Carbon Dioxide 21 L BUN 80 H 84 H Creatinine 2.0 H 2.0 H Glucose 238 H 235 H POC Glucose 215 H Hemoglobin A1c Lactic Acid Calcium Phosphorus Magnesium 2.80 H Ferritin AST ALT 77 H Alkaline Phosphatase Lactate Dehydrogenase Troponin T C-Reactive Protein Total Protein Albumin 3.0 L LDL Cholesterol Direct Urine Creatinine Urine Total Protein Salicylates Acetaminophen Crossmatch 11/06/21 11/06/21 11/06/21 05:40 08:07 08:07 WBC RBC Hgb Hct MCH RDW Plt Count Lymph % (Auto) [place] % (Auto) Lymph # (Auto) [place] # (Auto) Seg Neutrophils % Seg Neuts % (Manual) Lymphocytes % (Manual) Monocytes % (Manual) Nucleated RBC % Seg Neutrophils # Seg Neutrophils # Man Monocytes # (Manual) Eosinophils # (Manual) Basophils # (Manual) PT INR APTT D-Dimer Heparin Anti-Xa Level 1.24 H ABG pH 7.311 L ABG pO2 72.8 L ABG HCO3 29.7 H ABG O2 Saturation 94.1 L ABG Base Excess ABG Hemoglobin 11.4 L Oxyhemoglobin 92.3 L Sodium Potassium 5.2 H Chloride Carbon Dioxide BUN 85 H Creatinine 2.3 H Glucose 236 H POC Glucose Hemoglobin A1c Lactic Acid Calcium Phosphorus Magnesium Ferritin AST ALT Alkaline Phosphatase Lactate Dehydrogenase Troponin T C-Reactive Protein Total Protein Albumin LDL Cholesterol Direct Urine Creatinine Urine Total Protein Salicylates Acetaminophen Crossmatch 11/06/21 11/06/21 11/06/21 12:14 12:57 14:28 WBC RBC Hgb Hct MCH RDW Plt Count Lymph % (Auto) [place] % (Auto) Lymph # (Auto) [place] # (Auto) Seg Neutrophils % Seg Neuts % (Manual) Lymphocytes % (Manual) Monocytes % (Manual) Nucleated RBC % Seg Neutrophils # Seg Neutrophils # Man Monocytes # (Manual) Eosinophils # (Manual) Basophils # (Manual) PT INR APTT D-Dimer Heparin Anti-Xa Level ABG pH 7.282 L ABG pO2 72.6 L ABG HCO3 30.8 H ABG O2 Saturation 93.7 L ABG Base Excess 3.2 H ABG Hemoglobin 8.6 L Oxyhemoglobin 91.8 L Sodium Potassium Chloride Carbon Dioxide BUN 91 H Creatinine 2.6 H Glucose 259 H POC Glucose 225 H Hemoglobin A1c Lactic Acid Calcium Phosphorus Magnesium Ferritin AST ALT Alkaline Phosphatase Lactate Dehydrogenase Troponin T C-Reactive Protein Total Protein Albumin LDL Cholesterol Direct Urine Creatinine Urine Total Protein Salicylates Acetaminophen Crossmatch 11/06/21 11/06/21 11/06/21 17:28 19:20 21:30 WBC RBC Hgb Hct MCH RDW Plt Count Lymph % (Auto) [place] % (Auto) Lymph # (Auto) [place] # (Auto) Seg Neutrophils % Seg Neuts % (Manual) Lymphocytes % (Manual) Monocytes % (Manual) Nucleated RBC % Seg Neutrophils # Seg Neutrophils # Man Monocytes # (Manual) Eosinophils # (Manual) Basophils # (Manual) PT INR APTT D-Dimer Heparin Anti-Xa Level 0.73 H ABG pH ABG pO2 ABG HCO3 ABG O2 Saturation ABG Base Excess ABG Hemoglobin Oxyhemoglobin Sodium Potassium Chloride Carbon Dioxide BUN 95 H Creatinine 2.9 H Glucose 233 H POC Glucose 206 H Hemoglobin A1c Lactic Acid Calcium Phosphorus Magnesium Ferritin AST ALT Alkaline Phosphatase Lactate Dehydrogenase Troponin T C-Reactive Protein Total Protein Albumin LDL Cholesterol Direct Urine Creatinine Urine Total Protein Salicylates Acetaminophen Crossmatch 11/06/21 11/07/21 11/07/21 22:56 05:06 06:30 WBC RBC Hgb Hct MCH RDW Plt Count Lymph % (Auto) [place] % (Auto) Lymph # (Auto) [place] # (Auto) Seg Neutrophils % Seg Neuts % (Manual) Lymphocytes % (Manual) Monocytes % (Manual) Nucleated RBC % Seg Neutrophils # Seg Neutrophils # Man Monocytes # (Manual) Eosinophils # (Manual) Basophils # (Manual) PT INR APTT D-Dimer Heparin Anti-Xa Level ABG pH ABG pO2 ABG HCO3 ABG O2 Saturation ABG Base Excess ABG Hemoglobin Oxyhemoglobin Sodium 146 H Potassium Chloride Carbon Dioxide BUN 98 H Creatinine 2.8 H Glucose 202 H POC Glucose 215 H 172 H Hemoglobin A1c Lactic Acid Calcium Phosphorus 4.90 H D Magnesium 2.90 H Ferritin AST ALT Alkaline Phosphatase Lactate Dehydrogenase Troponin T C-Reactive Protein Total Protein Albumin LDL Cholesterol Direct Urine Creatinine Urine Total Protein Salicylates Acetaminophen Crossmatch 11/07/21 11/07/21 11/07/21 06:30 11:26 12:15 WBC 16.0 H RBC 3.06 L Hgb 8.2 L Hct 26.1 L MCH 27 L RDW 16.2 H Plt Count Lymph % (Auto) [place] % (Auto) Lymph # (Auto) [place] # (Auto) Seg Neutrophils % Seg Neuts % (Manual) 77.0 H Lymphocytes % (Manual) 11.0 L Monocytes % (Manual) Nucleated RBC % 2.0 H Seg Neutrophils # Seg Neutrophils # Man 12.3 H Monocytes # (Manual) Eosinophils # (Manual) Basophils # (Manual) PT INR APTT D-Dimer Heparin Anti-Xa Level ABG pH 7.298 L ABG pO2 73.0 L ABG HCO3 33.3 H ABG O2 Saturation 94.4 L ABG Base Excess 5.8 H ABG Hemoglobin 8.2 L Oxyhemoglobin 92.7 L Sodium Potassium Chloride Carbon Dioxide BUN Creatinine Glucose POC Glucose 179 H Hemoglobin A1c Lactic Acid Calcium Phosphorus Magnesium Ferritin AST ALT Alkaline Phosphatase Lactate Dehydrogenase Troponin T C-Reactive Protein Total Protein Albumin LDL Cholesterol Direct Urine Creatinine Urine Total Protein Salicylates Acetaminophen Crossmatch 11/07/21 11/07/21 11/07/21 17:57 22:16 23:49 WBC RBC Hgb Hct MCH RDW Plt Count Lymph % (Auto) [place] % (Auto) Lymph # (Auto) [place] # (Auto) Seg Neutrophils % Seg Neuts % (Manual) Lymphocytes % (Manual) Monocytes % (Manual) Nucleated RBC % Seg Neutrophils # Seg Neutrophils # Man Monocytes # (Manual) Eosinophils # (Manual) Basophils # (Manual) PT INR APTT D-Dimer Heparin Anti-Xa Level ABG pH ABG pO2 ABG HCO3 ABG O2 Saturation ABG Base Excess ABG Hemoglobin Oxyhemoglobin Sodium Potassium Chloride Carbon Dioxide BUN Creatinine Glucose POC Glucose 166 H 223 H 190 H Hemoglobin A1c Lactic Acid Calcium Phosphorus Magnesium Ferritin AST ALT Alkaline Phosphatase Lactate Dehydrogenase Troponin T C-Reactive Protein Total Protein Albumin LDL Cholesterol Direct Urine Creatinine Urine Total Protein Salicylates Acetaminophen Crossmatch 11/08/21 11/08/21 11/08/21 04:20 04:20 06:16 WBC 22.1 H RBC 3.01 L Hgb 8.1 L Hct 25.6 L MCH 27 L RDW 15.4 H Plt Count Lymph % (Auto) [place] % (Auto) Lymph # (Auto) [place] # (Auto) Seg Neutrophils % Seg Neuts % (Manual) Lymphocytes % (Manual) Monocytes % (Manual) Nucleated RBC % Seg Neutrophils # Seg Neutrophils # Man Monocytes # (Manual) Eosinophils # (Manual) Basophils # (Manual) PT INR APTT D-Dimer Heparin Anti-Xa Level ABG pH ABG pO2 ABG HCO3 ABG O2 Saturation ABG Base Excess ABG Hemoglobin Oxyhemoglobin Sodium 151 H Potassium 3.1 L D Chloride 107.3 H Carbon Dioxide 31 H BUN 82 H Creatinine 1.8 H Glucose 232 H POC Glucose 198 H Hemoglobin A1c Lactic Acid Calcium 8.1 L Phosphorus Magnesium Ferritin AST ALT Alkaline Phosphatase Lactate Dehydrogenase Troponin T C-Reactive Protein Total Protein Albumin LDL Cholesterol Direct Urine Creatinine Urine Total Protein Salicylates Acetaminophen Crossmatch 11/08/21 11/08/21 11/08/21 11:38 12:00 18:29 WBC RBC Hgb Hct MCH RDW Plt Count Lymph % (Auto) [place] % (Auto) Lymph # (Auto) [place] # (Auto) Seg Neutrophils % Seg Neuts % (Manual) Lymphocytes % (Manual) Monocytes % (Manual) Nucleated RBC % Seg Neutrophils # Seg Neutrophils # Man Monocytes # (Manual) Eosinophils # (Manual) Basophils # (Manual) PT INR APTT D-Dimer Heparin Anti-Xa Level ABG pH ABG pO2 ABG HCO3 ABG O2 Saturation ABG Base Excess ABG Hemoglobin Oxyhemoglobin Sodium Potassium 3.0 L Chloride Carbon Dioxide BUN Creatinine Glucose POC Glucose 190 H 211 H Hemoglobin A1c Lactic Acid Calcium Phosphorus Magnesium Ferritin AST ALT Alkaline Phosphatase Lactate Dehydrogenase Troponin T C-Reactive Protein Total Protein Albumin LDL Cholesterol Direct Urine Creatinine Urine Total Protein Salicylates Acetaminophen Crossmatch 11/08/21 11/08/21 11/09/21 21:34 21:40 00:36 WBC RBC Hgb Hct MCH RDW Plt Count Lymph % (Auto) [place] % (Auto) Lymph # (Auto) [place] # (Auto) Seg Neutrophils % Seg Neuts % (Manual) Lymphocytes % (Manual) Monocytes % (Manual) Nucleated RBC % Seg Neutrophils # Seg Neutrophils # Man Monocytes # (Manual) Eosinophils # (Manual) Basophils # (Manual) PT INR APTT D-Dimer Heparin Anti-Xa Level ABG pH ABG pO2 ABG HCO3 ABG O2 Saturation ABG Base Excess ABG Hemoglobin Oxyhemoglobin Sodium 148 H Potassium 2.8 L* Chloride Carbon Dioxide 31 H BUN 68 H Creatinine 1.5 H Glucose 191 H POC Glucose 194 H 140 H Hemoglobin A1c Lactic Acid Calcium 8.2 L Phosphorus Magnesium Ferritin AST ALT Alkaline Phosphatase Lactate Dehydrogenase Troponin T C-Reactive Protein Total Protein Albumin LDL Cholesterol Direct Urine Creatinine Urine Total Protein Salicylates Acetaminophen Crossmatch 11/09/21 11/09/21 11/09/21 04:51 04:51 04:51 WBC 27.6 H RBC 3.18 L Hgb 8.4 L Hct 26.6 L MCH 27 L RDW 15.3 H Plt Count Lymph % (Auto) [place] % (Auto) Lymph # (Auto) [place] # (Auto) Seg Neutrophils % Seg Neuts % (Manual) Lymphocytes % (Manual) Monocytes % (Manual) Nucleated RBC % Seg Neutrophils # Seg Neutrophils # Man Monocytes # (Manual) Eosinophils # (Manual) Basophils # (Manual) PT INR APTT D-Dimer Heparin Anti-Xa Level 0.18 L ABG pH ABG pO2 ABG HCO3 ABG O2 Saturation ABG Base Excess ABG Hemoglobin Oxyhemoglobin Sodium 148 H Potassium 2.7 L* Chloride Carbon Dioxide BUN 59 H Creatinine 1.4 H Glucose 143 H POC Glucose Hemoglobin A1c Lactic Acid Calcium 8.3 L Phosphorus Magnesium Ferritin AST ALT Alkaline Phosphatase Lactate Dehydrogenase Troponin T C-Reactive Protein Total Protein Albumin LDL Cholesterol Direct Urine Creatinine Urine Total Protein Salicylates Acetaminophen Crossmatch 11/09/21 11/09/21 11/09/21 05:52 08:45 11:00 WBC RBC Hgb Hct MCH RDW Plt Count Lymph % (Auto) [place] % (Auto) Lymph # (Auto) [place] # (Auto) Seg Neutrophils % Seg Neuts % (Manual) Lymphocytes % (Manual) Monocytes % (Manual) Nucleated RBC % Seg Neutrophils # Seg Neutrophils # Man Monocytes # (Manual) Eosinophils # (Manual) Basophils # (Manual) PT INR APTT D-Dimer Heparin Anti-Xa Level ABG pH ABG pO2 73.2 L ABG HCO3 33.8 H ABG O2 Saturation ABG Base Excess 8.7 H ABG Hemoglobin 8.5 L Oxyhemoglobin 94.1 L Sodium Potassium Chloride Carbon Dioxide BUN Creatinine Glucose POC Glucose 166 H 136 H Hemoglobin A1c Lactic Acid Calcium Phosphorus Magnesium Ferritin AST ALT Alkaline Phosphatase Lactate Dehydrogenase Troponin T C-Reactive Protein Total Protein Albumin LDL Cholesterol Direct Urine Creatinine Urine Total Protein Salicylates Acetaminophen Crossmatch 11/09/21 11/09/21 11/09/21 15:48 16:10 20:31 WBC RBC Hgb Hct MCH RDW Plt Count Lymph % (Auto) [place] % (Auto) Lymph # (Auto) [place] # (Auto) Seg Neutrophils % Seg Neuts % (Manual) Lymphocytes % (Manual) Monocytes % (Manual) Nucleated RBC % Seg Neutrophils # Seg Neutrophils # Man Monocytes # (Manual) Eosinophils # (Manual) Basophils # (Manual) PT INR APTT D-Dimer Heparin Anti-Xa Level ABG pH ABG pO2 ABG HCO3 ABG O2 Saturation ABG Base Excess ABG Hemoglobin Oxyhemoglobin Sodium Potassium 2.8 L* Chloride Carbon Dioxide 31 H BUN 53 H Creatinine 1.3 H Glucose 208 H POC Glucose 203 H 166 H Hemoglobin A1c Lactic Acid Calcium 7.9 L Phosphorus Magnesium Ferritin AST ALT Alkaline Phosphatase Lactate Dehydrogenase Troponin T C-Reactive Protein Total Protein Albumin LDL Cholesterol Direct Urine Creatinine Urine Total Protein Salicylates Acetaminophen Crossmatch 11/09/21 11/09/21 11/09/21 21:30 23:16 Unknown WBC RBC Hgb Hct MCH RDW Plt Count Lymph % (Auto) [place] % (Auto) Lymph # (Auto) [place] # (Auto) Seg Neutrophils % Seg Neuts % (Manual) Lymphocytes % (Manual) Monocytes % (Manual) Nucleated RBC % Seg Neutrophils # Seg Neutrophils # Man Monocytes # (Manual) Eosinophils # (Manual) Basophils # (Manual) PT INR APTT D-Dimer Heparin Anti-Xa Level 0.24 L ABG pH ABG pO2 ABG HCO3 ABG O2 Saturation ABG Base Excess ABG Hemoglobin Oxyhemoglobin Sodium Potassium Chloride Carbon Dioxide BUN 52 H Creatinine 1.4 H Glucose 185 H POC Glucose 172 H Hemoglobin A1c Lactic Acid Calcium 7.8 L Phosphorus Magnesium Ferritin AST ALT Alkaline Phosphatase Lactate Dehydrogenase Troponin T C-Reactive Protein Total Protein Albumin LDL Cholesterol Direct Urine Creatinine Urine Total Protein Salicylates Acetaminophen Crossmatch 11/10/21 11/10/21 11/10/21 02:00 04:17 04:17 WBC 24.5 H RBC 2.75 L Hgb 7.5 L Hct 22.9 L MCH 27 L RDW Plt Count Lymph % (Auto) [place] % (Auto) Lymph # (Auto) [place] # (Auto) Seg Neutrophils % Seg Neuts % (Manual) Lymphocytes % (Manual) Monocytes % (Manual) Nucleated RBC % Seg Neutrophils # Seg Neutrophils # Man Monocytes # (Manual) Eosinophils # (Manual) Basophils # (Manual) PT INR APTT D-Dimer Heparin Anti-Xa Level 0.26 L ABG pH ABG pO2 ABG HCO3 ABG O2 Saturation ABG Base Excess ABG Hemoglobin Oxyhemoglobin Sodium Potassium 2.9 L* Chloride Carbon Dioxide 35 H BUN 48 H Creatinine Glucose 212 H POC Glucose Hemoglobin A1c Lactic Acid Calcium 8.1 L Phosphorus Magnesium Ferritin AST ALT Alkaline Phosphatase Lactate Dehydrogenase Troponin T C-Reactive Protein Total Protein Albumin LDL Cholesterol Direct Urine Creatinine Urine Total Protein Salicylates Acetaminophen Crossmatch 11/10/21 11/10/21 11/10/21 05:01 08:39 11:03 WBC RBC Hgb Hct MCH RDW Plt Count Lymph % (Auto) [place] % (Auto) Lymph # (Auto) [place] # (Auto) Seg Neutrophils % Seg Neuts % (Manual) Lymphocytes % (Manual) Monocytes % (Manual) Nucleated RBC % Seg Neutrophils # Seg Neutrophils # Man Monocytes # (Manual) Eosinophils # (Manual) Basophils # (Manual) PT INR APTT D-Dimer Heparin Anti-Xa Level 0.12 L ABG pH ABG pO2 ABG HCO3 ABG O2 Saturation ABG Base Excess ABG Hemoglobin Oxyhemoglobin Sodium Potassium Chloride Carbon Dioxide BUN Creatinine Glucose POC Glucose 203 H 152 H Hemoglobin A1c Lactic Acid Calcium Phosphorus Magnesium Ferritin AST ALT Alkaline Phosphatase Lactate Dehydrogenase Troponin T C-Reactive Protein Total Protein Albumin LDL Cholesterol Direct Urine Creatinine Urine Total Protein Salicylates Acetaminophen Crossmatch 11/10/21 11/10/21 11/10/21 12:45 15:43 21:05 WBC RBC Hgb Hct MCH RDW Plt Count Lymph % (Auto) [place] % (Auto) Lymph # (Auto) [place] # (Auto) Seg Neutrophils % Seg Neuts % (Manual) Lymphocytes % (Manual) Monocytes % (Manual) Nucleated RBC % Seg Neutrophils # Seg Neutrophils # Man Monocytes # (Manual) Eosinophils # (Manual) Basophils # (Manual) PT INR APTT D-Dimer Heparin Anti-Xa Level ABG pH ABG pO2 ABG HCO3 ABG O2 Saturation ABG Base Excess ABG Hemoglobin Oxyhemoglobin Sodium 146 H Potassium 3.3 L Chloride Carbon Dioxide 31 H BUN 43 H Creatinine Glucose 155 H POC Glucose 139 H 139 H Hemoglobin A1c Lactic Acid Calcium 8.3 L Phosphorus Magnesium Ferritin AST ALT Alkaline Phosphatase Lactate Dehydrogenase Troponin T C-Reactive Protein Total Protein Albumin LDL Cholesterol Direct Urine Creatinine Urine Total Protein Salicylates Acetaminophen Crossmatch 11/10/21 11/11/21 11/11/21 23:25 03:49 03:49 WBC 22.1 H RBC 2.69 L Hgb 7.2 L Hct 22.7 L MCH 27 L RDW Plt Count Lymph % (Auto) [place] % (Auto) Lymph # (Auto) [place] # (Auto) Seg Neutrophils % Seg Neuts % (Manual) Lymphocytes % (Manual) Monocytes % (Manual) Nucleated RBC % Seg Neutrophils # Seg Neutrophils # Man Monocytes # (Manual) Eosinophils # (Manual) Basophils # (Manual) PT INR APTT D-Dimer Heparin Anti-Xa Level ABG pH ABG pO2 ABG HCO3 ABG O2 Saturation ABG Base Excess ABG Hemoglobin Oxyhemoglobin Sodium Potassium Chloride Carbon Dioxide 32 H BUN 44 H Creatinine 1.3 H Glucose 173 H POC Glucose 146 H Hemoglobin A1c Lactic Acid Calcium Phosphorus Magnesium Ferritin AST ALT Alkaline Phosphatase Lactate Dehydrogenase Troponin T C-Reactive Protein Total Protein Albumin LDL Cholesterol Direct Urine Creatinine Urine Total Protein Salicylates Acetaminophen Crossmatch 11/11/21 11/11/21 11/11/21 05:03 10:50 11:32 WBC RBC Hgb Hct MCH RDW Plt Count Lymph % (Auto) [place] % (Auto) Lymph # (Auto) [place] # (Auto) Seg Neutrophils % Seg Neuts % (Manual) Lymphocytes % (Manual) Monocytes % (Manual) Nucleated RBC % Seg Neutrophils # Seg Neutrophils # Man Monocytes # (Manual) Eosinophils # (Manual) Basophils # (Manual) PT INR APTT D-Dimer Heparin Anti-Xa Level ABG pH ABG pO2 ABG HCO3 ABG O2 Saturation ABG Base Excess ABG Hemoglobin Oxyhemoglobin Sodium Potassium Chloride Carbon Dioxide BUN Creatinine Glucose POC Glucose 152 H 129 H 133 H Hemoglobin A1c Lactic Acid Calcium Phosphorus Magnesium Ferritin AST ALT Alkaline Phosphatase Lactate Dehydrogenase Troponin T C-Reactive Protein Total Protein Albumin LDL Cholesterol Direct Urine Creatinine Urine Total Protein Salicylates Acetaminophen Crossmatch 11/11/21 11/11/21 11/11/21 13:53 16:31 17:13 WBC RBC Hgb Hct MCH RDW Plt Count Lymph % (Auto) [place] % (Auto) Lymph # (Auto) [place] # (Auto) Seg Neutrophils % Seg Neuts % (Manual) Lymphocytes % (Manual) Monocytes % (Manual) Nucleated RBC % Seg Neutrophils # Seg Neutrophils # Man Monocytes # (Manual) Eosinophils # (Manual) Basophils # (Manual) PT INR APTT D-Dimer Heparin Anti-Xa Level ABG pH 7.475 H ABG pO2 64.1 L ABG HCO3 32.4 H ABG O2 Saturation ABG Base Excess 8.0 H ABG Hemoglobin 7.6 L Oxyhemoglobin 94.0 L Sodium Potassium Chloride Carbon Dioxide BUN Creatinine Glucose POC Glucose 116 H 125 H Hemoglobin A1c Lactic Acid Calcium Phosphorus Magnesium Ferritin AST ALT Alkaline Phosphatase Lactate Dehydrogenase Troponin T C-Reactive Protein Total Protein Albumin LDL Cholesterol Direct Urine Creatinine Urine Total Protein Salicylates Acetaminophen Crossmatch 11/11/21 11/11/21 11/12/21 20:40 23:35 03:30 WBC 17.7 H RBC 2.37 L Hgb 6.3 L Hct 20.0 L MCH 27 L RDW 15.5 H Plt Count Lymph % (Auto) [place] % (Auto) Lymph # (Auto) [place] # (Auto) Seg Neutrophils % Seg Neuts % (Manual) Lymphocytes % (Manual) Monocytes % (Manual) Nucleated RBC % Seg Neutrophils # Seg Neutrophils # Man Monocytes # (Manual) Eosinophils # (Manual) Basophils # (Manual) PT INR APTT D-Dimer Heparin Anti-Xa Level 0.26 L ABG pH ABG pO2 ABG HCO3 ABG O2 Saturation ABG Base Excess ABG Hemoglobin Oxyhemoglobin Sodium Potassium Chloride Carbon Dioxide BUN Creatinine Glucose POC Glucose 118 H Hemoglobin A1c Lactic Acid Calcium Phosphorus Magnesium Ferritin AST ALT Alkaline Phosphatase Lactate Dehydrogenase Troponin T C-Reactive Protein Total Protein Albumin LDL Cholesterol Direct Urine Creatinine Urine Total Protein Salicylates Acetaminophen Crossmatch 11/12/21 11/12/21 11/12/21 03:30 04:15 11:53 WBC RBC Hgb Hct MCH RDW Plt Count Lymph % (Auto) [place] % (Auto) Lymph # (Auto) [place] # (Auto) Seg Neutrophils % Seg Neuts % (Manual) Lymphocytes % (Manual) Monocytes % (Manual) Nucleated RBC % Seg Neutrophils # Seg Neutrophils # Man Monocytes # (Manual) Eosinophils # (Manual) Basophils # (Manual) PT INR APTT D-Dimer Heparin Anti-Xa Level ABG pH ABG pO2 ABG HCO3 ABG O2 Saturation ABG Base Excess ABG Hemoglobin Oxyhemoglobin Sodium Potassium Chloride Carbon Dioxide 33 H BUN 38 H Creatinine 1.3 H Glucose 102 H POC Glucose 62 L Hemoglobin A1c Lactic Acid Calcium 8.2 L Phosphorus Magnesium Ferritin AST ALT Alkaline Phosphatase Lactate Dehydrogenase Troponin T C-Reactive Protein Total Protein Albumin LDL Cholesterol Direct Urine Creatinine Urine Total Protein Salicylates Acetaminophen Crossmatch See Detail 11/12/21 11/12/21 11/12/21 17:20 19:14 23:11 WBC RBC Hgb 6.2 L Hct 19.5 L* MCH RDW Plt Count Lymph % (Auto) [place] % (Auto) Lymph # (Auto) [place] # (Auto) Seg Neutrophils % Seg Neuts % (Manual) Lymphocytes % (Manual) Monocytes % (Manual) Nucleated RBC % Seg Neutrophils # Seg Neutrophils # Man Monocytes # (Manual) Eosinophils # (Manual) Basophils # (Manual) PT INR APTT D-Dimer Heparin Anti-Xa Level ABG pH ABG pO2 ABG HCO3 ABG O2 Saturation ABG Base Excess ABG Hemoglobin Oxyhemoglobin Sodium Potassium Chloride Carbon Dioxide BUN Creatinine Glucose POC Glucose 115 H 131 H Hemoglobin A1c Lactic Acid Calcium Phosphorus Magnesium Ferritin AST ALT Alkaline Phosphatase Lactate Dehydrogenase Troponin T C-Reactive Protein Total Protein Albumin LDL Cholesterol Direct Urine Creatinine Urine Total Protein Salicylates Acetaminophen Crossmatch 11/13/21 11/13/21 11/13/21 00:13 04:17 04:17 WBC 23.8 H RBC 2.84 L Hgb 7.4 L 7.8 L Hct 23.3 L 24.9 L MCH 27 L RDW 15.4 H Plt Count Lymph % (Auto) [place] % (Auto) Lymph # (Auto) [place] # (Auto) Seg Neutrophils % Seg Neuts % (Manual) Lymphocytes % (Manual) Monocytes % (Manual) Nucleated RBC % Seg Neutrophils # Seg Neutrophils # Man Monocytes # (Manual) Eosinophils # (Manual) Basophils # (Manual) PT INR APTT D-Dimer Heparin Anti-Xa Level ABG pH ABG pO2 ABG HCO3 ABG O2 Saturation ABG Base Excess ABG Hemoglobin Oxyhemoglobin Sodium 146 H Potassium Chloride Carbon Dioxide BUN 44 H Creatinine 1.6 H Glucose 144 H POC Glucose Hemoglobin A1c Lactic Acid Calcium 7.9 L Phosphorus 5.10 H D Magnesium Ferritin AST ALT Alkaline Phosphatase Lactate Dehydrogenase Troponin T C-Reactive Protein Total Protein Albumin LDL Cholesterol Direct Urine Creatinine Urine Total Protein Salicylates Acetaminophen Crossmatch 11/13/21 11/13/21 11/13/21 05:52 10:54 15:57 WBC RBC Hgb Hct MCH RDW Plt Count Lymph % (Auto) [place] % (Auto) Lymph # (Auto) [place] # (Auto) Seg Neutrophils % Seg Neuts % (Manual) Lymphocytes % (Manual) Monocytes % (Manual) Nucleated RBC % Seg Neutrophils # Seg Neutrophils # Man Monocytes # (Manual) Eosinophils # (Manual) Basophils # (Manual) PT INR APTT D-Dimer Heparin Anti-Xa Level ABG pH ABG pO2 ABG HCO3 ABG O2 Saturation ABG Base Excess ABG Hemoglobin Oxyhemoglobin Sodium Potassium Chloride Carbon Dioxide BUN Creatinine Glucose POC Glucose 123 H 147 H 207 H Hemoglobin A1c Lactic Acid Calcium Phosphorus Magnesium Ferritin AST ALT Alkaline Phosphatase Lactate Dehydrogenase Troponin T C-Reactive Protein Total Protein Albumin LDL Cholesterol Direct Urine Creatinine Urine Total Protein Salicylates Acetaminophen Crossmatch 11/13/21 11/13/21 11/14/21 16:01 23:18 04:55 WBC 23.9 H RBC 2.86 L Hgb 6.5 L 8.3 L Hct 20.3 L 24.5 L MCH RDW Plt Count Lymph % (Auto) [place] % (Auto) Lymph # (Auto) [place] # (Auto) Seg Neutrophils % Seg Neuts % (Manual) Lymphocytes % (Manual) Monocytes % (Manual) Nucleated RBC % Seg Neutrophils # Seg Neutrophils # Man Monocytes # (Manual) Eosinophils # (Manual) Basophils # (Manual) PT INR APTT D-Dimer Heparin Anti-Xa Level ABG pH ABG pO2 ABG HCO3 ABG O2 Saturation ABG Base Excess ABG Hemoglobin Oxyhemoglobin Sodium Potassium Chloride Carbon Dioxide BUN Creatinine Glucose POC Glucose 209 H Hemoglobin A1c Lactic Acid Calcium Phosphorus Magnesium Ferritin AST ALT Alkaline Phosphatase Lactate Dehydrogenase Troponin T C-Reactive Protein Total Protein Albumin LDL Cholesterol Direct Urine Creatinine Urine Total Protein Salicylates Acetaminophen Crossmatch 11/14/21 11/14/21 11/14/21 04:55 05:09 11:35 WBC RBC Hgb Hct MCH RDW Plt Count Lymph % (Auto) [place] % (Auto) Lymph # (Auto) [place] # (Auto) Seg Neutrophils % Seg Neuts % (Manual) Lymphocytes % (Manual) Monocytes % (Manual) Nucleated RBC % Seg Neutrophils # Seg Neutrophils # Man Monocytes # (Manual) Eosinophils # (Manual) Basophils # (Manual) PT INR APTT D-Dimer Heparin Anti-Xa Level ABG pH ABG pO2 ABG HCO3 ABG O2 Saturation ABG Base Excess ABG Hemoglobin Oxyhemoglobin Sodium 148 H Potassium Chloride 109.0 H Carbon Dioxide BUN 42 H Creatinine 1.6 H Glucose 184 H POC Glucose 169 H 154 H Hemoglobin A1c Lactic Acid Calcium 8.0 L Phosphorus Magnesium Ferritin AST ALT Alkaline Phosphatase Lactate Dehydrogenase Troponin T C-Reactive Protein Total Protein Albumin LDL Cholesterol Direct Urine Creatinine Urine Total Protein Salicylates Acetaminophen Crossmatch 11/14/21 11/14/21 11/15/21 16:57 23:11 04:36 WBC RBC Hgb Hct MCH RDW Plt Count Lymph % (Auto) [place] % (Auto) Lymph # (Auto) [place] # (Auto) Seg Neutrophils % Seg Neuts % (Manual) Lymphocytes % (Manual) Monocytes % (Manual) Nucleated RBC % Seg Neutrophils # Seg Neutrophils # Man Monocytes # (Manual) Eosinophils # (Manual) Basophils # (Manual) PT INR APTT D-Dimer Heparin Anti-Xa Level ABG pH ABG pO2 ABG HCO3 ABG O2 Saturation ABG Base Excess ABG Hemoglobin Oxyhemoglobin Sodium 151 H Potassium Chloride 111.2 H Carbon Dioxide BUN 36 H Creatinine 1.3 H Glucose 136 H POC Glucose 124 H 118 H Hemoglobin A1c Lactic Acid Calcium 8.1 L Phosphorus Magnesium Ferritin AST ALT Alkaline Phosphatase Lactate Dehydrogenase Troponin T C-Reactive Protein Total Protein Albumin LDL Cholesterol Direct Urine Creatinine Urine Total Protein Salicylates Acetaminophen Crossmatch 11/15/21 11/15/21 11/16/21 11:18 21:49 00:15 WBC RBC Hgb Hct MCH RDW Plt Count Lymph % (Auto) [place] % (Auto) Lymph # (Auto) [place] # (Auto) Seg Neutrophils % Seg Neuts % (Manual) Lymphocytes % (Manual) Monocytes % (Manual) Nucleated RBC % Seg Neutrophils # Seg Neutrophils # Man Monocytes # (Manual) Eosinophils # (Manual) Basophils # (Manual) PT INR APTT D-Dimer Heparin Anti-Xa Level ABG pH ABG pO2 ABG HCO3 ABG O2 Saturation ABG Base Excess ABG Hemoglobin Oxyhemoglobin Sodium Potassium Chloride Carbon Dioxide BUN Creatinine Glucose POC Glucose 154 H 154 H 146 H Hemoglobin A1c Lactic Acid Calcium Phosphorus Magnesium Ferritin AST ALT Alkaline Phosphatase Lactate Dehydrogenase Troponin T C-Reactive Protein Total Protein Albumin LDL Cholesterol Direct Urine Creatinine Urine Total Protein Salicylates Acetaminophen Crossmatch 11/16/21 11/16/21 11/16/21 05:11 05:11 05:37 WBC 18.2 H RBC 2.92 L Hgb 8.3 L Hct 26.1 L MCH RDW 15.8 H Plt Count Lymph % (Auto) 6.3 L [place] % (Auto) 10.2 H Lymph # (Auto) [place] # (Auto) 1.9 H Seg Neutrophils % 81.7 H Seg Neuts % (Manual) Lymphocytes % (Manual) Monocytes % (Manual) Nucleated RBC % Seg Neutrophils # 14.9 H Seg Neutrophils # Man Monocytes # (Manual) Eosinophils # (Manual) Basophils # (Manual) PT INR APTT D-Dimer Heparin Anti-Xa Level ABG pH ABG pO2 ABG HCO3 ABG O2 Saturation ABG Base Excess ABG Hemoglobin Oxyhemoglobin Sodium 146 H Potassium Chloride 108.0 H Carbon Dioxide BUN 25 H Creatinine Glucose 123 H POC Glucose 109 H Hemoglobin A1c Lactic Acid Calcium 7.8 L Phosphorus Magnesium Ferritin AST ALT Alkaline Phosphatase Lactate Dehydrogenase Troponin T C-Reactive Protein Total Protein Albumin LDL Cholesterol Direct Urine Creatinine Urine Total Protein Salicylates Acetaminophen Crossmatch 11/16/21 11/16/21 11/17/21 11:22 23:55 04:33 WBC RBC Hgb Hct MCH RDW Plt Count Lymph % (Auto) [place] % (Auto) Lymph # (Auto) [place] # (Auto) Seg Neutrophils % Seg Neuts % (Manual) Lymphocytes % (Manual) Monocytes % (Manual) Nucleated RBC % Seg Neutrophils # Seg Neutrophils # Man Monocytes # (Manual) Eosinophils # (Manual) Basophils # (Manual) PT INR APTT D-Dimer Heparin Anti-Xa Level ABG pH ABG pO2 ABG HCO3 ABG O2 Saturation ABG Base Excess ABG Hemoglobin Oxyhemoglobin Sodium Potassium Chloride Carbon Dioxide BUN 20 H Creatinine Glucose POC Glucose 136 H 113 H Hemoglobin A1c Lactic Acid Calcium 7.5 L Phosphorus Magnesium Ferritin AST ALT Alkaline Phosphatase Lactate Dehydrogenase Troponin T C-Reactive Protein Total Protein Albumin LDL Cholesterol Direct Urine Creatinine Urine Total Protein Salicylates Acetaminophen Crossmatch 11/17/21 11/18/21 11/18/21 23:22 04:53 04:53 WBC 13.0 H RBC 2.99 L Hgb 8.5 L Hct 26.4 L MCH RDW Plt Count Lymph % (Auto) 9.5 L [place] % (Auto) 9.8 H Lymph # (Auto) [place] # (Auto) 1.3 H Seg Neutrophils % 78.3 H Seg Neuts % (Manual) Lymphocytes % (Manual) Monocytes % (Manual) Nucleated RBC % Seg Neutrophils # 10.2 H Seg Neutrophils # Man Monocytes # (Manual) Eosinophils # (Manual) Basophils # (Manual) PT INR APTT D-Dimer Heparin Anti-Xa Level ABG pH ABG pO2 ABG HCO3 ABG O2 Saturation ABG Base Excess ABG Hemoglobin Oxyhemoglobin Sodium Potassium Chloride Carbon Dioxide BUN 18 H Creatinine Glucose 106 H POC Glucose 112 H Hemoglobin A1c Lactic Acid Calcium 8.1 L Phosphorus Magnesium Ferritin AST ALT Alkaline Phosphatase Lactate Dehydrogenase Troponin T C-Reactive Protein Total Protein Albumin LDL Cholesterol Direct Urine Creatinine Urine Total Protein Salicylates Acetaminophen Crossmatch 11/18/21 11/18/21 11/19/21 11:35 17:42 14:38 WBC RBC Hgb Hct MCH RDW Plt Count Lymph % (Auto) [place] % (Auto) Lymph # (Auto) [place] # (Auto) Seg Neutrophils % Seg Neuts % (Manual) Lymphocytes % (Manual) Monocytes % (Manual) Nucleated RBC % Seg Neutrophils # Seg Neutrophils # Man Monocytes # (Manual) Eosinophils # (Manual) Basophils # (Manual) PT INR APTT D-Dimer Heparin Anti-Xa Level ABG pH ABG pO2 ABG HCO3 ABG O2 Saturation ABG Base Excess ABG Hemoglobin Oxyhemoglobin Sodium Potassium Chloride 97.5 L Carbon Dioxide 31 H BUN Creatinine Glucose 146 H POC Glucose 143 H 132 H Hemoglobin A1c Lactic Acid Calcium Phosphorus Magnesium 1.60 L Ferritin AST ALT Alkaline Phosphatase Lactate Dehydrogenase Troponin T C-Reactive Protein Total Protein Albumin LDL Cholesterol Direct Urine Creatinine Urine Total Protein Salicylates Acetaminophen Crossmatch 11/19/21 11/19/21 11/20/21 16:24 23:58 07:42 WBC RBC 3.01 L Hgb 8.6 L Hct 26.7 L MCH RDW 15.4 H Plt Count Lymph % (Auto) [place] % (Auto) Lymph # (Auto) [place] # (Auto) Seg Neutrophils % Seg Neuts % (Manual) Lymphocytes % (Manual) Monocytes % (Manual) Nucleated RBC % Seg Neutrophils # Seg Neutrophils # Man Monocytes # (Manual) Eosinophils # (Manual) Basophils # (Manual) PT INR APTT D-Dimer Heparin Anti-Xa Level ABG pH ABG pO2 ABG HCO3 ABG O2 Saturation ABG Base Excess ABG Hemoglobin Oxyhemoglobin Sodium Potassium Chloride Carbon Dioxide BUN Creatinine Glucose POC Glucose 129 H 125 H Hemoglobin A1c Lactic Acid Calcium Phosphorus Magnesium Ferritin AST ALT Alkaline Phosphatase Lactate Dehydrogenase Troponin T C-Reactive Protein Total Protein Albumin LDL Cholesterol Direct Urine Creatinine Urine Total Protein Salicylates Acetaminophen Crossmatch 11/20/21 11/20/21 11/20/21 07:42 11:25 22:59 WBC RBC Hgb Hct MCH RDW Plt Count Lymph % (Auto) [place] % (Auto) Lymph # (Auto) [place] # (Auto) Seg Neutrophils % Seg Neuts % (Manual) Lymphocytes % (Manual) Monocytes % (Manual) Nucleated RBC % Seg Neutrophils # Seg Neutrophils # Man Monocytes # (Manual) Eosinophils # (Manual) Basophils # (Manual) PT INR APTT D-Dimer Heparin Anti-Xa Level ABG pH ABG pO2 ABG HCO3 ABG O2 Saturation ABG Base Excess ABG Hemoglobin Oxyhemoglobin Sodium Potassium Chloride Carbon Dioxide 31 H BUN Creatinine Glucose POC Glucose 116 H 113 H Hemoglobin A1c Lactic Acid Calcium Phosphorus Magnesium Ferritin AST ALT Alkaline Phosphatase Lactate Dehydrogenase Troponin T C-Reactive Protein Total Protein Albumin LDL Cholesterol Direct Urine Creatinine Urine Total Protein Salicylates Acetaminophen Crossmatch 11/21/21 11/22/21 11/22/21 10:50 05:10 16:12 WBC RBC Hgb Hct MCH RDW Plt Count Lymph % (Auto) [place] % (Auto) Lymph # (Auto) [place] # (Auto) Seg Neutrophils % Seg Neuts % (Manual) Lymphocytes % (Manual) Monocytes % (Manual) Nucleated RBC % Seg Neutrophils # Seg Neutrophils # Man Monocytes # (Manual) Eosinophils # (Manual) Basophils # (Manual) PT INR APTT D-Dimer Heparin Anti-Xa Level ABG pH ABG pO2 ABG HCO3 ABG O2 Saturation ABG Base Excess ABG Hemoglobin Oxyhemoglobin Sodium Potassium Chloride Carbon Dioxide 32 H BUN Creatinine Glucose POC Glucose 156 H 110 H Hemoglobin A1c Lactic Acid Calcium 8.1 L Phosphorus Magnesium Ferritin AST ALT Alkaline Phosphatase Lactate Dehydrogenase Troponin T C-Reactive Protein Total Protein Albumin LDL Cholesterol Direct Urine Creatinine Urine Total Protein Salicylates Acetaminophen Crossmatch 11/23/21 11/23/21 11/23/21 07:18 07:18 11:45 WBC RBC 3.23 L Hgb 9.1 L Hct 28.5 L MCH RDW 15.6 H Plt Count Lymph % (Auto) [place] % (Auto) Lymph # (Auto) [place] # (Auto) Seg Neutrophils % Seg Neuts % (Manual) Lymphocytes % (Manual) Monocytes % (Manual) Nucleated RBC % Seg Neutrophils # Seg Neutrophils # Man Monocytes # (Manual) Eosinophils # (Manual) Basophils # (Manual) PT INR APTT D-Dimer Heparin Anti-Xa Level ABG pH ABG pO2 ABG HCO3 ABG O2 Saturation ABG Base Excess ABG Hemoglobin Oxyhemoglobin Sodium Potassium 3.3 L Chloride 96.8 L Carbon Dioxide 32 H BUN Creatinine Glucose POC Glucose 140 H Hemoglobin A1c Lactic Acid Calcium Phosphorus Magnesium Ferritin AST ALT Alkaline Phosphatase Lactate Dehydrogenase Troponin T C-Reactive Protein Total Protein Albumin LDL Cholesterol Direct Urine Creatinine Urine Total Protein Salicylates Acetaminophen Crossmatch 11/23/21 11/23/21 11/24/21 16:40 23:45 07:19 WBC RBC 3.12 L Hgb 9.3 L Hct 27.2 L MCH RDW 16.0 H Plt Count Lymph % (Auto) 10.3 L [place] % (Auto) 10.0 H Lymph # (Auto) 1.1 L [place] # (Auto) 1.1 H Seg Neutrophils % 75.2 H Seg Neuts % (Manual) Lymphocytes % (Manual) Monocytes % (Manual) Nucleated RBC % Seg Neutrophils # 7.9 H Seg Neutrophils # Man Monocytes # (Manual) Eosinophils # (Manual) Basophils # (Manual) PT INR APTT D-Dimer Heparin Anti-Xa Level ABG pH ABG pO2 ABG HCO3 ABG O2 Saturation ABG Base Excess ABG Hemoglobin Oxyhemoglobin Sodium Potassium Chloride Carbon Dioxide BUN Creatinine Glucose POC Glucose 140 H 138 H Hemoglobin A1c Lactic Acid Calcium Phosphorus Magnesium Ferritin AST ALT Alkaline Phosphatase Lactate Dehydrogenase Troponin T C-Reactive Protein Total Protein Albumin LDL Cholesterol Direct Urine Creatinine Urine Total Protein Salicylates Acetaminophen Crossmatch 11/24/21 11/24/21 11/24/21 07:19 11:49 15:54 WBC RBC Hgb Hct MCH RDW Plt Count Lymph % (Auto) [place] % (Auto) Lymph # (Auto) [place] # (Auto) Seg Neutrophils % Seg Neuts % (Manual) Lymphocytes % (Manual) Monocytes % (Manual) Nucleated RBC % Seg Neutrophils # Seg Neutrophils # Man Monocytes # (Manual) Eosinophils # (Manual) Basophils # (Manual) PT INR APTT D-Dimer Heparin Anti-Xa Level ABG pH ABG pO2 ABG HCO3 ABG O2 Saturation ABG Base Excess ABG Hemoglobin Oxyhemoglobin Sodium Potassium 3.2 L Chloride 96.7 L Carbon Dioxide BUN Creatinine Glucose 125 H POC Glucose 118 H 106 H Hemoglobin A1c Lactic Acid Calcium Phosphorus Magnesium Ferritin AST ALT Alkaline Phosphatase Lactate Dehydrogenase Troponin T C-Reactive Protein Total Protein Albumin LDL Cholesterol Direct Urine Creatinine Urine Total Protein Salicylates Acetaminophen Crossmatch 11/25/21 11/25/21 11/25/21 11:49 15:41 20:51 WBC RBC Hgb Hct MCH RDW Plt Count Lymph % (Auto) [place] % (Auto) Lymph # (Auto) [place] # (Auto) Seg Neutrophils % Seg Neuts % (Manual) Lymphocytes % (Manual) Monocytes % (Manual) Nucleated RBC % Seg Neutrophils # Seg Neutrophils # Man Monocytes # (Manual) Eosinophils # (Manual) Basophils # (Manual) PT INR APTT D-Dimer Heparin Anti-Xa Level ABG pH ABG pO2 ABG HCO3 ABG O2 Saturation ABG Base Excess ABG Hemoglobin Oxyhemoglobin Sodium Potassium Chloride Carbon Dioxide BUN Creatinine Glucose POC Glucose 119 H 110 H 109 H Hemoglobin A1c Lactic Acid Calcium Phosphorus Magnesium Ferritin AST ALT Alkaline Phosphatase Lactate Dehydrogenase Troponin T C-Reactive Protein Total Protein Albumin LDL Cholesterol Direct Urine Creatinine Urine Total Protein Salicylates Acetaminophen Crossmatch 11/26/21 11/26/21 11/26/21 07:33 11:20 17:03 WBC RBC Hgb Hct MCH RDW Plt Count Lymph % (Auto) [place] % (Auto) Lymph # (Auto) [place] # (Auto) Seg Neutrophils % Seg Neuts % (Manual) Lymphocytes % (Manual) Monocytes % (Manual) Nucleated RBC % Seg Neutrophils # Seg Neutrophils # Man Monocytes # (Manual) Eosinophils # (Manual) Basophils # (Manual) PT INR APTT D-Dimer Heparin Anti-Xa Level ABG pH ABG pO2 ABG HCO3 ABG O2 Saturation ABG Base Excess ABG Hemoglobin Oxyhemoglobin Sodium Potassium Chloride Carbon Dioxide BUN Creatinine Glucose POC Glucose 158 H 162 H 144 H Hemoglobin A1c Lactic Acid Calcium Phosphorus Magnesium Ferritin AST ALT Alkaline Phosphatase Lactate Dehydrogenase Troponin T C-Reactive Protein Total Protein Albumin LDL Cholesterol Direct Urine Creatinine Urine Total Protein Salicylates Acetaminophen Crossmatch 11/26/21 11/27/21 11/27/21 21:51 07:44 12:20 WBC RBC Hgb Hct MCH RDW Plt Count Lymph % (Auto) [place] % (Auto) Lymph # (Auto) [place] # (Auto) Seg Neutrophils % Seg Neuts % (Manual) Lymphocytes % (Manual) Monocytes % (Manual) Nucleated RBC % Seg Neutrophils # Seg Neutrophils # Man Monocytes # (Manual) Eosinophils # (Manual) Basophils # (Manual) PT INR APTT D-Dimer Heparin Anti-Xa Level ABG pH ABG pO2 ABG HCO3 ABG O2 Saturation ABG Base Excess ABG Hemoglobin Oxyhemoglobin Sodium Potassium Chloride Carbon Dioxide BUN Creatinine Glucose POC Glucose 132 H 129 H 128 H Hemoglobin A1c Lactic Acid Calcium Phosphorus Magnesium Ferritin AST ALT Alkaline Phosphatase Lactate Dehydrogenase Troponin T C-Reactive Protein Total Protein Albumin LDL Cholesterol Direct Urine Creatinine Urine Total Protein Salicylates Acetaminophen Crossmatch 11/27/21 11/27/21 11/28/21 16:44 21:35 07:54 WBC RBC Hgb Hct MCH RDW Plt Count Lymph % (Auto) [place] % (Auto) Lymph # (Auto) [place] # (Auto) Seg Neutrophils % Seg Neuts % (Manual) Lymphocytes % (Manual) Monocytes % (Manual) Nucleated RBC % Seg Neutrophils # Seg Neutrophils # Man Monocytes # (Manual) Eosinophils # (Manual) Basophils # (Manual) PT INR APTT D-Dimer Heparin Anti-Xa Level ABG pH ABG pO2 ABG HCO3 ABG O2 Saturation ABG Base Excess ABG Hemoglobin Oxyhemoglobin Sodium Potassium Chloride Carbon Dioxide BUN Creatinine Glucose POC Glucose 126 H 131 H 124 H Hemoglobin A1c Lactic Acid Calcium Phosphorus Magnesium Ferritin AST ALT Alkaline Phosphatase Lactate Dehydrogenase Troponin T C-Reactive Protein Total Protein Albumin LDL Cholesterol Direct Urine Creatinine Urine Total Protein Salicylates Acetaminophen Crossmatch 11/28/21 11/28/21 11/28/21 11:27 11:56 16:34 WBC 12.3 H RBC 3.18 L Hgb 9.2 L Hct 27.8 L MCH RDW 16.1 H Plt Count Lymph % (Auto) 10.9 L [place] % (Auto) 13.7 H Lymph # (Auto) [place] # (Auto) 1.7 H Seg Neutrophils % 72.2 H Seg Neuts % (Manual) Lymphocytes % (Manual) Monocytes % (Manual) Nucleated RBC % Seg Neutrophils # 8.9 H Seg Neutrophils # Man Monocytes # (Manual) Eosinophils # (Manual) Basophils # (Manual) PT INR APTT D-Dimer Heparin Anti-Xa Level ABG pH ABG pO2 ABG HCO3 ABG O2 Saturation ABG Base Excess ABG Hemoglobin Oxyhemoglobin Sodium Potassium Chloride Carbon Dioxide BUN Creatinine Glucose POC Glucose 131 H 123 H Hemoglobin A1c Lactic Acid Calcium Phosphorus Magnesium Ferritin AST ALT Alkaline Phosphatase Lactate Dehydrogenase Troponin T C-Reactive Protein Total Protein Albumin LDL Cholesterol Direct Urine Creatinine Urine Total Protein Salicylates Acetaminophen Crossmatch 11/28/21 11/28/21 11/29/21 19:35 21:32 07:33 WBC RBC Hgb Hct MCH RDW Plt Count Lymph % (Auto) [place] % (Auto) Lymph # (Auto) [place] # (Auto) Seg Neutrophils % Seg Neuts % (Manual) Lymphocytes % (Manual) Monocytes % (Manual) Nucleated RBC % Seg Neutrophils # Seg Neutrophils # Man Monocytes # (Manual) Eosinophils # (Manual) Basophils # (Manual) PT INR APTT D-Dimer Heparin Anti-Xa Level 0.12 L ABG pH ABG pO2 ABG HCO3 ABG O2 Saturation ABG Base Excess ABG Hemoglobin Oxyhemoglobin Sodium Potassium Chloride Carbon Dioxide BUN Creatinine Glucose POC Glucose 110 H 108 H Hemoglobin A1c Lactic Acid Calcium Phosphorus Magnesium Ferritin AST ALT Alkaline Phosphatase Lactate Dehydrogenase Troponin T C-Reactive Protein Total Protein Albumin LDL Cholesterol Direct Urine Creatinine Urine Total Protein Salicylates Acetaminophen Crossmatch 11/29/21 11/29/21 11/29/21 11:29 13:51 15:25 WBC 13.0 H RBC 3.41 L Hgb 9.5 L Hct 29.9 L MCH RDW 16.2 H Plt Count Lymph % (Auto) 11.1 L [place] % (Auto) 15.5 H Lymph # (Auto) [place] # (Auto) 2.0 H Seg Neutrophils % 71.8 H Seg Neuts % (Manual) Lymphocytes % (Manual) Monocytes % (Manual) Nucleated RBC % Seg Neutrophils # 9.3 H Seg Neutrophils # Man Monocytes # (Manual) Eosinophils # (Manual) Basophils # (Manual) PT INR APTT D-Dimer Heparin Anti-Xa Level ABG pH ABG pO2 ABG HCO3 ABG O2 Saturation ABG Base Excess ABG Hemoglobin Oxyhemoglobin Sodium Potassium Chloride Carbon Dioxide BUN Creatinine Glucose POC Glucose 136 H 123 H Hemoglobin A1c Lactic Acid Calcium Phosphorus Magnesium Ferritin AST ALT Alkaline Phosphatase Lactate Dehydrogenase Troponin T C-Reactive Protein Total Protein Albumin LDL Cholesterol Direct Urine Creatinine Urine Total Protein Salicylates Acetaminophen Crossmatch 11/29/21 11/29/21 11/29/21 18:50 18:50 20:16 WBC RBC Hgb Hct MCH RDW Plt Count Lymph % (Auto) [place] % (Auto) Lymph # (Auto) [place] # (Auto) Seg Neutrophils % Seg Neuts % (Manual) Lymphocytes % (Manual) Monocytes % (Manual) Nucleated RBC % Seg Neutrophils # Seg Neutrophils # Man Monocytes # (Manual) Eosinophils # (Manual) Basophils # (Manual) PT INR APTT D-Dimer Heparin Anti-Xa Level 0.21 L ABG pH ABG pO2 ABG HCO3 ABG O2 Saturation ABG Base Excess ABG Hemoglobin Oxyhemoglobin Sodium 126 L Potassium Chloride 86.3 L Carbon Dioxide BUN 38 H Creatinine 3.6 H Glucose 153 H POC Glucose 166 H Hemoglobin A1c Lactic Acid Calcium Phosphorus Magnesium Ferritin AST ALT Alkaline Phosphatase Lactate Dehydrogenase Troponin T C-Reactive Protein Total Protein Albumin LDL Cholesterol Direct Urine Creatinine Urine Total Protein Salicylates Acetaminophen Crossmatch 11/30/21 11/30/21 11/30/21 05:14 07:35 11:15 WBC RBC Hgb 8.7 L Hct 26.8 L MCH RDW Plt Count Lymph % (Auto) [place] % (Auto) Lymph # (Auto) [place] # (Auto) Seg Neutrophils % Seg Neuts % (Manual) Lymphocytes % (Manual) Monocytes % (Manual) Nucleated RBC % Seg Neutrophils # Seg Neutrophils # Man Monocytes # (Manual) Eosinophils # (Manual) Basophils # (Manual) PT INR APTT D-Dimer Heparin Anti-Xa Level ABG pH ABG pO2 ABG HCO3 ABG O2 Saturation ABG Base Excess ABG Hemoglobin Oxyhemoglobin Sodium Potassium Chloride Carbon Dioxide BUN Creatinine Glucose POC Glucose 114 H 119 H Hemoglobin A1c Lactic Acid Calcium Phosphorus Magnesium Ferritin AST ALT Alkaline Phosphatase Lactate Dehydrogenase Troponin T C-Reactive Protein Total Protein Albumin LDL Cholesterol Direct Urine Creatinine Urine Total Protein Salicylates Acetaminophen Crossmatch 11/30/21 11/30/21 11/30/21 15:26 17:10 18:51 WBC RBC Hgb Hct MCH RDW Plt Count Lymph % (Auto) [place] % (Auto) Lymph # (Auto) [place] # (Auto) Seg Neutrophils % Seg Neuts % (Manual) Lymphocytes % (Manual) Monocytes % (Manual) Nucleated RBC % Seg Neutrophils # Seg Neutrophils # Man Monocytes # (Manual) Eosinophils # (Manual) Basophils # (Manual) PT INR APTT D-Dimer Heparin Anti-Xa Level 0.10 L ABG pH ABG pO2 ABG HCO3 ABG O2 Saturation ABG Base Excess ABG Hemoglobin Oxyhemoglobin Sodium 126 L Potassium Chloride 86.5 L Carbon Dioxide BUN 42 H Creatinine 4.0 H Glucose 155 H POC Glucose 157 H Hemoglobin A1c Lactic Acid Calcium 8.0 L Phosphorus Magnesium Ferritin AST ALT Alkaline Phosphatase Lactate Dehydrogenase Troponin T C-Reactive Protein Total Protein Albumin LDL Cholesterol Direct Urine Creatinine Urine Total Protein Salicylates Acetaminophen Crossmatch 11/30/21 12/01/21 12/01/21 20:04 00:39 09:38 WBC 25.2 H RBC 3.06 L Hgb 8.5 L Hct 26.8 L MCH RDW 16.1 H Plt Count Lymph % (Auto) [place] % (Auto) Lymph # (Auto) [place] # (Auto) Seg Neutrophils % Seg Neuts % (Manual) 80.0 H Lymphocytes % (Manual) 9.0 L Monocytes % (Manual) Nucleated RBC % Seg Neutrophils # Seg Neutrophils # Man 20.2 H Monocytes # (Manual) 1.3 H Eosinophils # (Manual) Basophils # (Manual) PT INR APTT D-Dimer Heparin Anti-Xa Level 0.18 L ABG pH ABG pO2 ABG HCO3 ABG O2 Saturation ABG Base Excess ABG Hemoglobin Oxyhemoglobin Sodium Potassium Chloride Carbon Dioxide BUN Creatinine Glucose POC Glucose 115 H Hemoglobin A1c Lactic Acid Calcium Phosphorus Magnesium Ferritin AST ALT Alkaline Phosphatase Lactate Dehydrogenase Troponin T C-Reactive Protein Total Protein Albumin LDL Cholesterol Direct Urine Creatinine Urine Total Protein Salicylates Acetaminophen Crossmatch 12/01/21 12/01/21 12/02/21 09:38 11:35 03:22 WBC 23.3 H RBC 2.61 L Hgb 7.5 L Hct 22.8 L MCH RDW 16.1 H Plt Count Lymph % (Auto) [place] % (Auto) Lymph # (Auto) [place] # (Auto) Seg Neutrophils % Seg Neuts % (Manual) 77.0 H Lymphocytes % (Manual) 7.0 L Monocytes % (Manual) 14.0 H Nucleated RBC % Seg Neutrophils # Seg Neutrophils # Man 17.9 H Monocytes # (Manual) 3.3 H Eosinophils # (Manual) Basophils # (Manual) 0.2 H PT INR APTT D-Dimer Heparin Anti-Xa Level ABG pH ABG pO2 ABG HCO3 ABG O2 Saturation ABG Base Excess ABG Hemoglobin Oxyhemoglobin Sodium 127 L Potassium 5.1 H Chloride 87.9 L Carbon Dioxide BUN 49 H Creatinine 4.9 H Glucose 134 H POC Glucose 109 H Hemoglobin A1c Lactic Acid Calcium 7.9 L Phosphorus Magnesium Ferritin AST ALT Alkaline Phosphatase Lactate Dehydrogenase Troponin T C-Reactive Protein Total Protein Albumin LDL Cholesterol Direct Urine Creatinine Urine Total Protein Salicylates Acetaminophen Crossmatch 12/02/21 12/02/21 12/02/21 03:22 03:22 15:40 WBC RBC Hgb Hct MCH RDW Plt Count Lymph % (Auto) [place] % (Auto) Lymph # (Auto) [place] # (Auto) Seg Neutrophils % Seg Neuts % (Manual) Lymphocytes % (Manual) Monocytes % (Manual) Nucleated RBC % Seg Neutrophils # Seg Neutrophils # Man Monocytes # (Manual) Eosinophils # (Manual) Basophils # (Manual) PT INR APTT D-Dimer Heparin Anti-Xa Level 0.15 L < 0.10 L ABG pH ABG pO2 ABG HCO3 ABG O2 Saturation ABG Base Excess ABG Hemoglobin Oxyhemoglobin Sodium 129 L Potassium Chloride 91.7 L Carbon Dioxide BUN 42 H Creatinine 4.4 H Glucose POC Glucose Hemoglobin A1c Lactic Acid Calcium 8.0 L Phosphorus 5.20 H Magnesium Ferritin AST ALT Alkaline Phosphatase Lactate Dehydrogenase Troponin T C-Reactive Protein Total Protein Albumin LDL Cholesterol Direct Urine Creatinine Urine Total Protein Salicylates Acetaminophen Crossmatch 12/02/21 12/02/21 12/03/21 17:45 21:03 05:24 WBC 22.3 H RBC 2.69 L Hgb 7.4 L Hct 23.5 L MCH RDW 16.5 H Plt Count Lymph % (Auto) [place] % (Auto) Lymph # (Auto) [place] # (Auto) Seg Neutrophils % Seg Neuts % (Manual) 85.5 H Lymphocytes % (Manual) 6.0 L Monocytes % (Manual) Nucleated RBC % Seg Neutrophils # Seg Neutrophils # Man 19.1 H Monocytes # (Manual) 1.0 H Eosinophils # (Manual) 0.7 H Basophils # (Manual) PT INR APTT D-Dimer Heparin Anti-Xa Level ABG pH ABG pO2 ABG HCO3 ABG O2 Saturation ABG Base Excess ABG Hemoglobin Oxyhemoglobin Sodium Potassium Chloride Carbon Dioxide BUN Creatinine Glucose POC Glucose 122 H 121 H Hemoglobin A1c Lactic Acid Calcium Phosphorus Magnesium Ferritin AST ALT Alkaline Phosphatase Lactate Dehydrogenase Troponin T C-Reactive Protein Total Protein Albumin LDL Cholesterol Direct Urine Creatinine Urine Total Protein Salicylates Acetaminophen Crossmatch 12/03/21 12/03/21 12/03/21 08:00 11:19 15:11 WBC RBC Hgb Hct MCH RDW Plt Count Lymph % (Auto) [place] % (Auto) Lymph # (Auto) [place] # (Auto) Seg Neutrophils % Seg Neuts % (Manual) Lymphocytes % (Manual) Monocytes % (Manual) Nucleated RBC % Seg Neutrophils # Seg Neutrophils # Man Monocytes # (Manual) Eosinophils # (Manual) Basophils # (Manual) PT INR APTT D-Dimer Heparin Anti-Xa Level ABG pH ABG pO2 ABG HCO3 ABG O2 Saturation ABG Base Excess ABG Hemoglobin Oxyhemoglobin Sodium 134 L Potassium Chloride 95.9 L Carbon Dioxide BUN 30 H Creatinine 3.5 H Glucose 110 H POC Glucose 108 H 117 H Hemoglobin A1c Lactic Acid Calcium Phosphorus Magnesium Ferritin AST ALT Alkaline Phosphatase Lactate Dehydrogenase Troponin T C-Reactive Protein Total Protein Albumin LDL Cholesterol Direct Urine Creatinine Urine Total Protein Salicylates Acetaminophen Crossmatch 12/03/21 12/04/21 12/04/21 20:32 06:15 06:15 WBC 18.5 H RBC 2.88 L Hgb 8.0 L Hct 25.6 L MCH RDW 16.4 H Plt Count Lymph % (Auto) [place] % (Auto) Lymph # (Auto) [place] # (Auto) Seg Neutrophils % Seg Neuts % (Manual) 74.0 H Lymphocytes % (Manual) 11.0 L Monocytes % (Manual) 9.0 H Nucleated RBC % Seg Neutrophils # Seg Neutrophils # Man 13.7 H Monocytes # (Manual) 1.7 H Eosinophils # (Manual) Basophils # (Manual) PT INR APTT D-Dimer Heparin Anti-Xa Level ABG pH ABG pO2 ABG HCO3 ABG O2 Saturation ABG Base Excess ABG Hemoglobin Oxyhemoglobin Sodium 135 L Potassium Chloride 96.9 L Carbon Dioxide BUN 19 H Creatinine 2.8 H Glucose 102 H POC Glucose 122 H Hemoglobin A1c Lactic Acid Calcium Phosphorus Magnesium Ferritin AST ALT Alkaline Phosphatase Lactate Dehydrogenase Troponin T C-Reactive Protein Total Protein Albumin LDL Cholesterol Direct Urine Creatinine Urine Total Protein Salicylates Acetaminophen Crossmatch 12/04/21 12/04/21 12/04/21 08:14 11:17 15:58 WBC RBC Hgb Hct MCH RDW Plt Count Lymph % (Auto) [place] % (Auto) Lymph # (Auto) [place] # (Auto) Seg Neutrophils % Seg Neuts % (Manual) Lymphocytes % (Manual) Monocytes % (Manual) Nucleated RBC % Seg Neutrophils # Seg Neutrophils # Man Monocytes # (Manual) Eosinophils # (Manual) Basophils # (Manual) PT INR APTT D-Dimer Heparin Anti-Xa Level ABG pH ABG pO2 ABG HCO3 ABG O2 Saturation ABG Base Excess ABG Hemoglobin Oxyhemoglobin Sodium Potassium Chloride Carbon Dioxide BUN Creatinine Glucose POC Glucose 106 H 125 H 113 H Hemoglobin A1c Lactic Acid Calcium Phosphorus Magnesium Ferritin AST ALT Alkaline Phosphatase Lactate Dehydrogenase Troponin T C-Reactive Protein Total Protein Albumin LDL Cholesterol Direct Urine Creatinine Urine Total Protein Salicylates Acetaminophen Crossmatch 12/04/21 12/05/21 12/05/21 20:25 05:05 08:15 WBC 19.4 H RBC 2.89 L Hgb 8.1 L Hct 25.6 L MCH RDW 16.3 H Plt Count Lymph % (Auto) [place] % (Auto) Lymph # (Auto) [place] # (Auto) Seg Neutrophils % Seg Neuts % (Manual) Lymphocytes % (Manual) 13.0 L Monocytes % (Manual) 13.0 H Nucleated RBC % Seg Neutrophils # Seg Neutrophils # Man 12.4 H Monocytes # (Manual) 2.5 H Eosinophils # (Manual) 0.8 H Basophils # (Manual) PT INR APTT D-Dimer Heparin Anti-Xa Level ABG pH ABG pO2 ABG HCO3 ABG O2 Saturation ABG Base Excess ABG Hemoglobin Oxyhemoglobin Sodium Potassium Chloride Carbon Dioxide BUN Creatinine Glucose POC Glucose 130 H 107 H Hemoglobin A1c Lactic Acid Calcium Phosphorus Magnesium Ferritin AST ALT Alkaline Phosphatase Lactate Dehydrogenase Troponin T C-Reactive Protein Total Protein Albumin LDL Cholesterol Direct Urine Creatinine Urine Total Protein Salicylates Acetaminophen Crossmatch 12/05/21 12/05/21 12/05/21 11:18 16:42 21:14 WBC RBC Hgb Hct MCH RDW Plt Count Lymph % (Auto) [place] % (Auto) Lymph # (Auto) [place] # (Auto) Seg Neutrophils % Seg Neuts % (Manual) Lymphocytes % (Manual) Monocytes % (Manual) Nucleated RBC % Seg Neutrophils # Seg Neutrophils # Man Monocytes # (Manual) Eosinophils # (Manual) Basophils # (Manual) PT INR APTT D-Dimer Heparin Anti-Xa Level ABG pH ABG pO2 ABG HCO3 ABG O2 Saturation ABG Base Excess ABG Hemoglobin Oxyhemoglobin Sodium Potassium Chloride Carbon Dioxide BUN Creatinine Glucose POC Glucose 114 H 122 H 119 H Hemoglobin A1c Lactic Acid Calcium Phosphorus Magnesium Ferritin AST ALT Alkaline Phosphatase Lactate Dehydrogenase Troponin T C-Reactive Protein Total Protein Albumin LDL Cholesterol Direct Urine Creatinine Urine Total Protein Salicylates Acetaminophen Crossmatch 12/05/21 12/06/21 12/06/21 23:51 04:36 04:36 WBC RBC Hgb 8.0 L Hct 25.7 L MCH RDW Plt Count Lymph % (Auto) [place] % (Auto) Lymph # (Auto) [place] # (Auto) Seg Neutrophils % Seg Neuts % (Manual) Lymphocytes % (Manual) Monocytes % (Manual) Nucleated RBC % Seg Neutrophils # Seg Neutrophils # Man Monocytes # (Manual) Eosinophils # (Manual) Basophils # (Manual) PT INR APTT D-Dimer Heparin Anti-Xa Level 0.71 H ABG pH ABG pO2 ABG HCO3 ABG O2 Saturation ABG Base Excess ABG Hemoglobin Oxyhemoglobin Sodium 132 L Potassium Chloride 92.5 L Carbon Dioxide BUN 35 H Creatinine 4.0 H Glucose POC Glucose Hemoglobin A1c Lactic Acid Calcium Phosphorus Magnesium Ferritin AST ALT Alkaline Phosphatase Lactate Dehydrogenase Troponin T C-Reactive Protein Total Protein Albumin LDL Cholesterol Direct Urine Creatinine Urine Total Protein Salicylates Acetaminophen Crossmatch 12/06/21 12/06/21 12/06/21 07:32 11:12 15:49 WBC RBC Hgb Hct MCH RDW Plt Count Lymph % (Auto) [place] % (Auto) Lymph # (Auto) [place] # (Auto) Seg Neutrophils % Seg Neuts % (Manual) Lymphocytes % (Manual) Monocytes % (Manual) Nucleated RBC % Seg Neutrophils # Seg Neutrophils # Man Monocytes # (Manual) Eosinophils # (Manual) Basophils # (Manual) PT INR APTT D-Dimer Heparin Anti-Xa Level ABG pH ABG pO2 ABG HCO3 ABG O2 Saturation ABG Base Excess ABG Hemoglobin Oxyhemoglobin Sodium Potassium Chloride Carbon Dioxide BUN Creatinine Glucose POC Glucose 106 H 112 H 111 H Hemoglobin A1c Lactic Acid Calcium Phosphorus Magnesium Ferritin AST ALT Alkaline Phosphatase Lactate Dehydrogenase Troponin T C-Reactive Protein Total Protein Albumin LDL Cholesterol Direct Urine Creatinine Urine Total Protein Salicylates Acetaminophen Crossmatch 12/06/21 12/06/21 12/07/21 17:13 21:31 06:11 WBC RBC Hgb Hct MCH RDW Plt Count Lymph % (Auto) [place] % (Auto) Lymph # (Auto) [place] # (Auto) Seg Neutrophils % Seg Neuts % (Manual) Lymphocytes % (Manual) Monocytes % (Manual) Nucleated RBC % Seg Neutrophils # Seg Neutrophils # Man Monocytes # (Manual) Eosinophils # (Manual) Basophils # (Manual) PT INR APTT D-Dimer Heparin Anti-Xa Level ABG pH ABG pO2 ABG HCO3 ABG O2 Saturation ABG Base Excess ABG Hemoglobin Oxyhemoglobin Sodium 126 L Potassium Chloride 90.1 L Carbon Dioxide BUN 43 H Creatinine 4.2 H Glucose POC Glucose 113 H 112 H Hemoglobin A1c Lactic Acid Calcium Phosphorus Magnesium Ferritin AST ALT Alkaline Phosphatase Lactate Dehydrogenase Troponin T C-Reactive Protein Total Protein Albumin LDL Cholesterol Direct Urine Creatinine Urine Total Protein Salicylates Acetaminophen Crossmatch 12/07/21 12/07/21 12/08/21 12:04 21:36 04:53 WBC RBC Hgb Hct MCH RDW Plt Count Lymph % (Auto) [place] % (Auto) Lymph # (Auto) [place] # (Auto) Seg Neutrophils % Seg Neuts % (Manual) Lymphocytes % (Manual) Monocytes % (Manual) Nucleated RBC % Seg Neutrophils # Seg Neutrophils # Man Monocytes # (Manual) Eosinophils # (Manual) Basophils # (Manual) PT INR APTT D-Dimer Heparin Anti-Xa Level ABG pH ABG pO2 ABG HCO3 ABG O2 Saturation ABG Base Excess ABG Hemoglobin Oxyhemoglobin Sodium 128 L Potassium Chloride 93.1 L Carbon Dioxide 21 L BUN 39 H Creatinine 3.9 H Glucose 103 H POC Glucose 119 H 112 H Hemoglobin A1c Lactic Acid Calcium Phosphorus Magnesium Ferritin AST ALT Alkaline Phosphatase Lactate Dehydrogenase Troponin T C-Reactive Protein Total Protein Albumin LDL Cholesterol Direct Urine Creatinine Urine Total Protein Salicylates Acetaminophen Crossmatch 12/08/21 12/08/21 12/08/21 04:53 08:56 11:20 WBC 24.2 H RBC 2.71 L Hgb 7.6 L Hct 24.1 L MCH RDW 16.7 H Plt Count 114 L Lymph % (Auto) [place] % (Auto) Lymph # (Auto) [place] # (Auto) Seg Neutrophils % Seg Neuts % (Manual) 76.0 H Lymphocytes % (Manual) Monocytes % (Manual) Nucleated RBC % 1.0 H Seg Neutrophils # Seg Neutrophils # Man 18.4 H Monocytes # (Manual) 1.5 H Eosinophils # (Manual) 1.0 H Basophils # (Manual) PT INR APTT D-Dimer Heparin Anti-Xa Level 0.94 H ABG pH ABG pO2 ABG HCO3 ABG O2 Saturation ABG Base Excess ABG Hemoglobin Oxyhemoglobin Sodium Potassium Chloride Carbon Dioxide BUN Creatinine Glucose POC Glucose 119 H Hemoglobin A1c Lactic Acid Calcium Phosphorus Magnesium Ferritin AST ALT Alkaline Phosphatase Lactate Dehydrogenase Troponin T C-Reactive Protein Total Protein Albumin LDL Cholesterol Direct Urine Creatinine Urine Total Protein Salicylates Acetaminophen Crossmatch 12/08/21 12/08/21 12/09/21 16:55 21:18 07:05 WBC RBC Hgb Hct MCH RDW Plt Count Lymph % (Auto) [place] % (Auto) Lymph # (Auto) [place] # (Auto) Seg Neutrophils % Seg Neuts % (Manual) Lymphocytes % (Manual) Monocytes % (Manual) Nucleated RBC % Seg Neutrophils # Seg Neutrophils # Man Monocytes # (Manual) Eosinophils # (Manual) Basophils # (Manual) PT INR APTT D-Dimer Heparin Anti-Xa Level ABG pH ABG pO2 ABG HCO3 ABG O2 Saturation ABG Base Excess ABG Hemoglobin Oxyhemoglobin Sodium 124 L Potassium Chloride 89.9 L Carbon Dioxide BUN 45 H Creatinine 3.5 H Glucose POC Glucose 112 H 122 H Hemoglobin A1c Lactic Acid Calcium Phosphorus Magnesium Ferritin AST ALT Alkaline Phosphatase Lactate Dehydrogenase Troponin T C-Reactive Protein Total Protein Albumin LDL Cholesterol Direct Urine Creatinine Urine Total Protein Salicylates Acetaminophen Crossmatch 12/09/21 11:02 WBC RBC Hgb Hct MCH RDW Plt Count Lymph % (Auto) [place] % (Auto) Lymph # (Auto) [place] # (Auto) Seg Neutrophils % Seg Neuts % (Manual) Lymphocytes % (Manual) Monocytes % (Manual) Nucleated RBC % Seg Neutrophils # Seg Neutrophils # Man Monocytes # (Manual) Eosinophils # (Manual) Basophils # (Manual) PT INR APTT D-Dimer Heparin Anti-Xa Level ABG pH ABG pO2 ABG HCO3 ABG O2 Saturation ABG Base Excess ABG Hemoglobin Oxyhemoglobin Sodium Potassium Chloride Carbon Dioxide BUN Creatinine Glucose POC Glucose 132 H Hemoglobin A1c Lactic Acid Calcium Phosphorus Magnesium Ferritin AST ALT Alkaline Phosphatase Lactate Dehydrogenase Troponin T C-Reactive Protein Total Protein Albumin LDL Cholesterol Direct Urine Creatinine Urine Total Protein Salicylates Acetaminophen Crossmatch CT scan - chest: report reviewed, image reviewed Additional Studies: CTA of chest:12/01/21 reported The exam is limited secondary to respiratory motion artifact. Low lung volumes. No central pulmonary thromboembolus is identified. The thoracic aorta is grossly unremarkable without aneurysm or dissection. Mild bibasilar atelectasis are present. Incidentally there are multiple healing anterior rib fractures involving the first, second, third, fourth, fifth, sixth and seventh ribs bilaterally. There is a nondisplaced fracture involving the left eighth rib. Allied health notes reviewed: nursing
[2021-12-09] MEDS: MELATONIN 5 MG TAB PO PRN (22:07)
[2021-12-10 05:36] LABS: Hematocrit 23.6 % (30.3-42.9); Hemoglobin 7.7 gm/dl (10.1-14.3); Mean Corpuscular HGB Conc 33 % (30-34); Mean Corpuscular Volume 89 fl (79-97); Platelet Count 119 K/mm3 (140-440); Red Blood Count 2.65 M/mm3 (3.65-5.03)
[2021-12-10 05:55] LABS: Calcium 8.7 mg/dL (8.4-10.2)
[2021-12-10] MEDS: GABAPENTIN 100 MG CAP PO SCH ×3 (06:10→21:47)
[2021-12-10 08:40] LABS: Band Neutrophils # (Manual) 1.7 K/mm3; Myelocytes # (Manual) 0.6 K/mm3; Total Cells Counted 100
[2021-12-10 08:41] LABS: Anisocytosis 1+; Hypochromasia 1+; Platelet Estimate Consistent w Auto
[2021-12-10] MEDS: SENNOSIDES/DOCUSATE SODIUM 8.6/50 MG TAB PO SCH ×2 (09:25→21:47)
[2021-12-10] MEDS: METOPROLOL TARTRATE 50 MG TAB PO SCH ×2 (09:25→21:48)
[2021-12-10] MEDS: AMIODARONE 200 MG TAB PO SCH (09:25)
[2021-12-10] MEDS: MIDODRINE 5 MG TAB PO SCH ×3 (09:25→16:30)
[2021-12-10] MEDS: DOCUSATE SODIUM 100 MG CAP PO SCH ×2 (09:25→21:47)
[2021-12-10] MEDS: FAMOTIDINE 10 MG TAB PO SCH ×2 (09:25→21:47)
--- NOTE | 2021-12-10 09:25 | Progress Note ---
Assessment and Plan Acute Renal Failure secondary to Ischemic ATN secondary to Sepsis, Cardiac arrest and Hypotension S/P Cardiac Arrest Acute Hypoxemic Respiratory Failure Acute DVT Sepsis CHF Anemia Hyperkalemia Hyponatremia Plan: no indication for HD today fluid restriction 1000 cc a day CHF-LVEF 25-30 % Anemia-On Epogen 10,000 units TIW Obtain daily weights Strict I/O's daily Renally dose medications Avoid nephrotoxic agents Continue to monitor renal function closely Assess dialysis needs daily Subjective Date of service: 12/10/21 Principal diagnosis: AHRF; Cardiac arrest; R. pneumothorax; pneumonia; AMS; DVT's; SIERRA; Obesity Interval history: tolerated permcath yesterday Objective - Vital Signs Vital signs: Vital Signs - 12hr 12/09/21 12/09/21 12/10/21 21:27 22:01 03:40 Temperature 97.9 F Pulse Rate 105 H 64 Respiratory 19 Rate Blood Pressure 120/80 130/65 Blood Pressure [Left] O2 Sat by Pulse 100 100 Oximetry 12/10/21 07:52 Temperature 97.5 F L Pulse Rate 67 Respiratory 16 Rate Blood Pressure Blood Pressure 119/71 [Left] O2 Sat by Pulse 100 Oximetry - Lab 12/10/21 05:22 12/10/21 05:22 Most recent lab results ABG pH 7.450 pH Units (7.350-7.450) 12/01/21 Unknown ABG pCO2 38.0 mm Hg 12/01/21 Unknown ABG pO2 88.9 mm Hg (80.0-90.0) 12/01/21 Unknown ABG HCO3 25.8 mmol/L (20.0-26.0) 12/01/21 Unknown ABG O2 Saturation 97.2 % (95.0-99.0) 12/01/21 Unknown Calcium 8.7 mg/dL (8.4-10.2) 12/10/21 05:22 Phosphorus 5.20 mg/dL (2.5-4.5) H 12/02/21 03:22 Magnesium 1.60 mg/dL (1.7-2.3) L 11/19/21 14:38 Urine Creatinine 190.9 mg/dL (0.1-20.0) H 11/04/21 Unknown Urine Sodium 10 mmol/L 11/04/21 Unknown Urine Total Protein 172 mg/dL (5-11.8) H 11/04/21 Unknown Medications & Allergies - Medications Allergies/Adverse Reactions: Allergies No Known Allergies Allergy (Verified 10/29/21 14:01) Home Medications: Home Medications Medication Instructions Recorded Confirmed Last Taken Type Unobtainable 11/10/21 11/10/21 Unknown History Active Medications: Generic Name Dose Route Start Last Admin Trade Name Freq PRN Reason Stop Dose Admin Acetaminophen 650 mg 10/29/21 17:04 11/12/21 22:53 Acetaminophen 650 Mg Rect Supp NC 650 mg Q6H PRN Administration Pain MILD(1-3)/Fever >100.5/NIEVES Acetaminophen 650 mg 11/19/21 16:35 12/02/21 18:20 Acetaminophen 325 Mg Tab PO 650 mg Q6HR PRN Administration PAIN Albumin Human 50 gm 12/02/21 11:00 12/02/21 11:55 Albumin Human 25% (25 Gm/100 Ml) Inj IV 50 gm ZACH PRN Administration Hypotension Alprazolam 0.25 mg 11/14/21 14:29 12/07/21 12:00 Alprazolam 0.25 Mg Tab PO 0.25 mg Q8H PRN Administration Anxiety Amiodarone HCl 200 mg 12/10/21 10:00 Amiodarone 200 Mg Tab PO DAILY RAMON Docusate Sodium 100 mg 11/18/21 15:00 12/09/21 21:55 Docusate Sodium 100 Mg Cap PO 100 mg BID RAMON Administration Epoetin [place]-epbx 10,000 unit 12/06/21 10:00 12/07/21 15:30 Epoetin [place]-Epbx 10,000 Unit/1 Ml Vial IV 10,000 unit ZACH PRN Administration hemodialysis Famotidine 10 mg 11/06/21 10:00 12/09/21 21:55 Famotidine 10 Mg Tab PO 10 mg BID RAMON Administration Gabapentin 100 mg 11/28/21 14:00 12/10/21 06:10 Gabapentin 100 Mg Cap PO 100 mg Q8HR RAMON Administration Heparin Sodium (Porcine) 4,000 unit 12/01/21 07:50 12/02/21 17:22 Heparin 10,000 Units/10 Ml Vial 40 unit/kg (4300 unit) 4,000 unit IV Administration Q6H PRN Anti-Xa Assay < 0.1 units/ml Hydrophilic Ointment 1 applic 10/29/21 14:29 11/09/21 08:51 Lip Therapy Vaseline TP 1 applic Q2HR PRN Administration Dry Lips Heparin Sodium/Sodium Chloride 25,000 unit in 500 mls @ 30 mls/hr 11/28/21 17:00 12/10/21 00:22 Heparin/ 0.45% Nacl-25,000 Unit/500 Ml IV 1,750 units/hr TITR RAMON 35 mls/hr Titration Protocol 1,500 UNITS/HR Sodium Chloride 100 mls @ 999 mls/hr 12/01/21 14:44 Nacl 0.9% IV ZACH PRN Hypotension Insulin Human Lispro 0 unit 11/25/21 22:00 12/09/21 22:00 Insulin Lispro 100 Unit/Ml SUB-Q Not Given ACHS [facility] Protocol Lactulose 20 gm 11/18/21 14:43 12/06/21 15:26 Lactulose 20 Gm/30 Ml Oral Liqd PO 20 gm Q6H PRN Administration Constipation Melatonin 10 mg 11/22/21 17:31 12/09/21 22:07 Melatonin 5 Mg Tab PO 10 mg QHS PRN Administration Sleep Metoprolol Tartrate 100 mg 12/07/21 11:00 12/09/21 22:01 Metoprolol Tartrate 50 Mg Tab PO 100 mg BID RAMON Administration Midodrine 10 mg 12/01/21 12:00 12/09/21 18:55 Midodrine 5 Mg Tab PO Not Given TID@0800,1200,1600 [facility] Morphine Sulfate 1 mg 11/28/21 15:00 12/03/21 21:43 Morphine 2 Mg/1 Ml Inj IV 1 mg Q4H PRN Administration Pain, Moderate (4-6) Multi-Ingred Cream/Lotion/Oil/Oint 1 applic 10/29/21 14:29 11/06/21 09:25 Mineral Oil/Petrolatum, White Ophth Oint 3.5 Gm OU 1 applic Q4HR PRN Administration Dry Eye(s) Oxycodone/Acetaminophen 1 tab 11/27/21 14:31 12/05/21 22:39 Oxycodone /Acetaminophen 5-325mg Tab PO 1 tab Q4H PRN Administration Pain, Moderate (4-6) Polyethylene Glycol 17 gm 11/20/21 12:47 12/08/21 09:54 Polyethylene Glycol 3350 17 Gm Powder PO 17 gm QDAY PRN Administration Constipation Senna/Docusate Sodium 1 tab 11/16/21 22:00 12/09/21 21:55 Sennosides/Docusate Sodium 8.6/50 Mg Tab PO 1 tab BID RAMON Administration Sodium Chloride 10 ml 10/29/21 22:00 12/09/21 21:56 Sodium Chloride 0.9% 10 Ml Flush Syringe IV Not Given BID RAMON Sodium Chloride 10 ml 10/29/21 17:04 Sodium Chloride 0.9% 10 Ml Flush Syringe IV PRN PRN LINE FLUSH
[2021-12-10] MEDS: HEPARIN/ 0.45% NACL DRIP 25,000 UNIT/500 ML BAG IV SCH ×2 (09:33→23:03)
--- NOTE | 2021-12-10 10:46 | Progress Note ---
Assessment and Plan Patient is a 66-year-old female with unknown past medical history brought into the ED following outside of hospital cardiac arrest thought to be PEA with thought to have downtime of 7 to 9 minutes however details are unclear S/P PEA cardiopulmonary arrest- Acute hypoxic respiratory failure-pulm following Septic shock Bacteremia Pneumonia Acute renal failure on HD-nephrology following Atrial flutter w/ RVR Pneumothorax- s/p CT Acute bilateral DVT-on Heparin gtt Hypokalemia Transaminitis Retroperitoneal Hematoma s/p IVC Echo 10/30/2021-technically difficult study due to body habitus. EF 25 to 30%. Right ventricular systolic function is normal. No pericardial effusion Plan: in discussion with hospitalist start elquis and stop heparin and monitor labs Continue metoprolol 100 mg p.o. twice daily for rate control. Decrease to amiodarone 200 mg p.o. daily - Patient Problems (1) ESRD (end stage renal disease) on dialysis Current Visit: Yes Status: Acute (2) Acute hypoxemic respiratory failure Current Visit: Yes Status: Acute (3) Atrial fibrillation and flutter Current Visit: Yes Status: Acute (4) Cardiac arrest Current Visit: Yes Status: Acute (5) Cardiomyopathy Current Visit: Yes Status: Acute (6) Cardiopulmonary arrest Current Visit: Yes Status: Acute (7) Pneumothorax, right Current Visit: Yes Status: Acute (8) SIRS (systemic inflammatory response syndrome) Current Visit: Yes Status: Acute (9) Septic shock Current Visit: Yes Status: Acute (10) Shock liver Current Visit: Yes Status: Acute Subjective Date of service: 12/10/21 Principal diagnosis: AHRF; Cardiac arrest; R. pneumothorax; pneumonia; AMS; DVT's; SIERRA; Obesity Interval history: pt awake and no sob moving extermities Objective Vital Signs Temp Pulse Resp BP BP Pulse Ox Pulse Ox 12/10/21 09:25 119/71 12/10/21 07:52 97.5 F L 67 16 119/71 100 12/10/21 03:40 97.9 F 64 19 130/65 100 12/09/21 22:01 105 H 120/80 12/09/21 21:27 100 12/09/21 20:00 96 12/09/21 19:33 98.0 F 85 18 99/58 100 12/09/21 18:00 98.0 F 78 18 113/56 100 12/09/21 17:45 79 118/60 12/09/21 17:30 77 118/54 12/09/21 17:15 72 124/62 12/09/21 17:00 72 121/65 12/09/21 16:45 87 127/72 12/09/21 16:30 80 120/66 12/09/21 16:15 83 115/89 12/09/21 16:00 83 121/53 12/09/21 15:45 85 123/64 12/09/21 15:30 80 122/63 12/09/21 15:15 93 H 123/56 12/09/21 15:00 89 117/87 12/09/21 14:45 108 H 138/88 12/09/21 14:30 97.5 F L 99 H 20 141/71 95 12/09/21 12:00 120 H 12/09/21 10:48 119 H 145/97 12/09/21 10:46 97.3 F L 120 H 19 145/97 99 - Physical Examination General: No Apparent Distress HEENT: Positive: EOMI, Normocephaly Neck: Positive: trachea midline. Negative: JVD/HJR Cardiac: Positive: Reg Rate and Rhythm Lungs: Positive: clear to auscultation Neuro: Positive: Grossly Intact Abdomen: Positive: Soft Skin: Negative: Rash Musculoskeletal: No Pain Extremities: Present: upper extr. pulses, +1 Edema, warm - Labs and Meds CBC 12/10/21 Range/Units 05:22 WBC 14.5 H (4.5-11.0) K/mm3 RBC 2.65 L (3.65-5.03) M/mm3 Hgb 7.7 L (10.1-14.3) gm/dl Hct 23.6 L (30.3-42.9) % Plt Count 119 L (140-440) K/mm3 Comprehensive Metabolic Panel 12/10/21 Range/Units 05:22 Sodium 131 L D (137-145) mmol/L Potassium 5.0 (3.6-5.0) mmol/L Chloride 97.0 L (98-107) mmol/L Carbon Dioxide 24 (22-30) mmol/L BUN 34 H (7-17) mg/dL Creatinine 2.9 H (0.6-1.2) mg/dL Glucose 99 (65-100) mg/dL Calcium 8.7 (8.4-10.2) mg/dL - Imaging and Cardiology EKG: report reviewed, image reviewed Echo: report reviewed - Telemetry EKG Rhythm: Atrial Flutter (variable controlled in 70's) - EKG Sinus rhythms and dysrhythmias: sinus rhythm Ventricular dysrhythmias: ventricular premature com Repolarization changes or abnormalities: nonspecific abnormality, ST segment, and/or T wave Myocardial infarction: septal PA (old age or ind - Allied health notes Allied health notes reviewed: nursing
[2021-12-10] MEDS: INSULIN LISPRO 100 UNIT/ML SUB-Q SCH ×4 (11:13→23:43)
--- NOTE | 2021-12-10 11:15 | Progress Note ---
Assessment and Plan Assessment and plan: 66 YO Female with Obesity was attending [facility] services when the patient collapsed and lost consciousness. Witnesses began CPR. EMS was notified and upon arrival the patient was found to be in distress without perfusing cardiac rhythm. Patient initiated on ACLS protocol and subsequently intubated in the field and transported to ED. The patient regained spontaneous circulation during transport. She was found to have acute hypoxemic respiratory failure, septic shock suspected secondary to aspiration pneumonia, metabolic acidosis, toxic metabolic encephalopathy, shock liver, and cardiac arrest with return of perfusing cardiac rhythm after initiation of ACLS protocol. Patient initiated on sepsis protocol as well as pneumonia protocol. Patient admitted to ICU. Patient improved, extubated on 11/11 and transferred to floor on 11/19. s/p cardiac arrest, collapse at [facility], HFrEF, shock/hypotension resolved Atrial fibrillation/atrial flutter -Cardiac arrest and collapse at [facility] with ROSC -Cardiology consulted, appreciate recommendations - S/p Cardizem gtt- d/c due to low EF; now on PO Amio -s/p vasopressor support with levophed -Echocardiogram shows left ventricular systolic function severely decreased, LVEF 25 to 30%, no pericardial effusion -proBNP 5622 -Continue Lasix 20 mg twice daily, BB, spironolactone, losartan -No significant volume overload clinically Acute hypoxic respiratory failure, right pneumothorax, Angioedema (resolved), pulmonary edema -[facility] consulted, appreciate recommendations -Intubated on 10/29 and extubated on 11/11 -Bipap q HS and prn, at high risk for KOLBY with morbid obesity -NC during day -s/p right chest tube for pneumothorax -s/p steroids for angioedema -On Lasix for pulmonary edema. Transaminitis likely shocked liver - resolved Acute kidney injury likely secondary to vasomotor nephropathy, hypernatremia -Nephrology consulted, appreciate recommendations -Krishna replaced 11/05 urinary retention -FeNa 0.05 indicating pre-renal -SIERRA and hyponatremia resolved. Creatinine 1.0 on Lasix IV Shock cardiogenicsuspected sepsis -Fever was as high as 102 with a leukocytosis Blood, urine and sputum cultures negative -COVID-19 PCR negative -S/p empiric antibiotic therapy for possible pneumonia with Rocephin and azithromycin () -S/p Levophed gtt for hypotension -Fever and leukocytosis resolved -Monitor WBC and temperature curve Acute Metabolic encephalopathy, agitation/anxiety -Etiology likely from a cardiac arrest, shock and cerebral hypoperfusion CT head no acute focal parenchymal lesion in the brain -Neurology consulted, appreciate recommendations -EEG and MRI noted, Neuro recommend to cut down on sedation as possible Mental status significantly improved, currently fairly alert and oriented. Answers appropriately. Acute DVT in the left posterior tibial vein and bilateral peroneal veins, Anemia, retroperitoneal bleed -D-dimer greater than 10,000 -CTA chest with no evidence of PE -Bilateral lower extremity ultrasound positive for DVT -Heparin gtt on hold d/t anemia, received PRBC x4 -vasuclar surgery consulted, appreciate recommendations -recommended multiphasic CT angio of the abdomen and pelvis with and without contrast if H/H drops and did not recommend IVC filter at this time as the DVTs are infrapopliteal and recommends a follow-up DVT study weekly for 2 weeks. Repeat venous duplex ultrasound on 11/21 showed progression of left peroneal DVT extending into popliteal vein. Vascular surgery completed IVC filter placement on 11/22. -Trend CBC -SCDs to BLE while in bed -Transfuse hemoglobin less than 7 -Monitor for signs of bleeding -Hemoglobin stable, 8.6 Hypertension, not able be controlled Increase losartan 200 mg daily and add hydralazine as needed. Hyperglycemia ,resolved) -Avoid hypoglycemia -Hbg A1C 6.7 -SSI and lantus q hs (titrate as needed) -Accu-Cheks q. 6 Morbid obesity High risk for KOLBY On nightly BiPAP Deconditioning PT/OT Hospital Course to Date: 10/30: Intubated and sedated, on fentanyl gtt. Open eyes spontaneously but does not follow any commands. On vasopressors, titrate as tolerated for MAP above 65. Patient febrile overnight, continue empiric IV Abx, culture data and COVID PCR pending. Patient is also s/p CT placement due to spontaneous pneumothorax. 2D echo is pending and Cardiology is consulted. 10/31: Patient remains intubated and following commands. Levophed drip stopped and potassium repleted. Patient started on tube feeding. Remains in soft bilateral restraints. 11/01: RN noted ST changes on BSM and 12 lead EKG obtained which showed ST. Given Ativan 1mg for agitation as she is maxed on fentanyl drip and IV push fentanyl did not seem to help. Patient was started on CPAP this morning by RT but remained on fentanyl drip and was having periods of apnea. Plan was to retry CPAP again in the p.m. with sedation off. 11/02: Rate increased r/t hypercapnea on ABG, sedation reduced. Given kionex for hyperkalemia and was started on levophed overnight for hypotension. 11/03: Overnight patient had tachycardia and was given Cardizem and Lopressor. Lopressor was repeated in the a.m. due to tachycardia. Patient will be started on amiodarone with a bolus per cardiology. Patient started on normal saline per liter per [facility] and steroids for angioedema. Noted to have bright red blood when suctioned from oh ETT. Remains on heparin drip as H/H is stable for now. Will reevaluate. Fentanyl drip was restarted last night due to agitation. Dr. Florse updated family today 11/04: Patient was sedated on fentanyl however off sedation is able to follow commands, a.m. labs completed in the p.m. and show hyperkalemia with increased renal function studies. Nephrology, neurology consulted by [facility]. Given Kayexalate, insulin and D50 for hyperkalemia. Patient remains on amiodarone. 11/05: Patient needed to be sedated on fentanyl again to today. overnight krishna was replaced. Hyperkalemia->given kionex 60 for 5.6. Repeat K 6-> Dr. Grant informed and requested bumex, kionex, insulin, d50, calcium gluconate and sodium bicarb with repeat BMP in 2 hours which were placed. HR remains elevated. 11/06: Patient remained in atrial fibrillation/atrial flutter with heart rate in the 150s despite being on amnio drip and was given amnio bolus, Cardizem bolus and started on Cardizem drip by cardiology. Patient is on beta-blockers p.o. scheduled and to feedings changed to Nepro. Kayexalate was given in the morning by nephrology due to hyperkalemia. 11/07: Patient is only responsive to mild stimuli, precedex added in an attempt to wean off fentanyl gtt to better assess her mental status. Neurology also on consult, pending MRI and EEG. Patient remains in Aflutter this am, HR in the 80 to 90s, still on amiodarone and heparin gtt. 11/08: Fentanyl gtt is off, only on precedex gtt. Patient is still not following any commands. MRI brain and EEG completed. Neuro recommendations noted, sedatives agents decreased. FWF added for hypernatremia and low K repleted, repe at labs ordered. Placed a call and spoke with patient's daughter, Eva Brown . She was updated on patient's conditions and status. All questions and concerns were voiced at this time. 11/09: Patient is awake and alert this am, following commands and appropriate. Remains on precedex gtt, plan for possible PST today. Hypertensive overnight, meds adjusted by Cardio and PRN Hydralazine added for SBP greater than 160. CT dislodged overnight, CXR is stable with no significant change. F/U CXR in the am. Patient's daughter, Eva Brown, visited with patient. She was updated on patient's status and goal of care for today. All questions and concerns were voiced at this time. 11/10: Mentation remains intact, still on precedex gtt. This am CXR noted still with fluid overload s/p X1 dose of IV lasix, good response from IV lasix overnight. Hypernatremia improved, D5W d/dayday. Still with persistent hypokalemia, continue electrolytes replacement and frequent lab check. Daily IV lasix and aldactone added by Cardio. Patient is also with persistent low grade fevers overnight, leukocytosis with mild improvement this am. Will get a repeat sputum culture, hold off on IV abx for now. Consider ID consult if fevers and leukocytosis persist. Patient tolerated PST X4hrs yesterday. PST again today, plan to wean to extubate if tolerated. 11/11: IAM overnight. Off precedex gtt and tolerated PST this am. Plan to wean to extubate today. Additional IV lasix given, plan to keep patient at a net negative balance for better lung compliance. F/U CXR in the am. K improved this am, repeat BMP this afternoon since diuresing. Remains with low grade fevers, leukocytosis downtrending, will continue to monitor. Speech/PT/OT ordered 11/12: S/p extubation, now stable on 3L NC. This am CXR noted with no significant changes, lasix changed to IV X4days BID. Drop in H&H this am, and Lt. flank ecchymosis noted. Heparin gtt on hold for now and orders placed for 1 unit of PRBCs and Ct Abd/Pelvis w/o con to r/o retroperitoneal bleed. Pending speech swallow eval, keep patient NPO for now. Patient is stable for IMCU status 11/13: Patient with increased WOB and tachycardia this am, patient was placed on Bipap and precedex gtt was resumed. CXR with mild improvement. CT Abd/Pelvis also reviewed large hematomas noted at the Lt. retroperitoneum and left posterior lateral abdominal wall. Heparin gtt is already on hold, patient is hemodynamically stable. Vascular Surgery consulted for possible IVC filter eval. Patient s/p 2units of PRBCs, will continue to trend H&H and transfuse if hbg is less than 7. Worsening renal function this am, IF diuretic on hold for now. Patient is also febrile with spike in wbcs most likely reactive to bleed, will panculture and hold off on IV Abx for now. Patient also failed speech bedside swallow eval yesterday, NGT in placed plan to resume enteral nutrition 11/14: Patient had bilateral lower extremity Doppler ultrasound and vascular surgery has recommended multiphasic CT angio of the abdomen and pelvis with and without contrast if H/H drops and does not recommend IVC filter at this time as the DVTs are infrapopliteal and recommends a DVT study weekly for 2 weeks. FWF 250 q4 ml per nephro. Started on as needed Xanax and p.o. amiodarone. She did not pass her ST evaluation today. Will be transferred to [facility]. 11/15: Resting comfortably on encounter. Speech cleared for pureed diet. Remains on 3l satting 98 % on bedside encounter. Does not appear to be in respiratory distress. Will continue to hold AC, No ivc filter planned at this time. qweekly doppler to monitor for migration of DVT per vascular. If demonstrated, will consider IVC filter. CBC ordered for tomorrow, will continue monitoring in light of retroperitoneal hematoma. FWF increased by nephrology to 350cc q4hr d/t hypernatremia. UOP/renal function both improved. D/w cardiology, will continue amiodorone an additional 24hrs. Plan to change dosing of metoprolol. Continue to wean off of precedex. Continue xanax scheduled for anxiety. physical therapy recs noted, fernanda / ltac will discuss with CM. Continue IMCU monitoring. 11/16: Pulmonary congestion this AM. CXR ordered. Lasix 40 mg IV x 1 order this AM. Will monitor for 24 hrs. potential downgrade to medical floor tomorrow. 11/17: Persisting pulmonary congestion, was on bipap overnight into this AM. Will order additional lasix 40 mg IV x 2. CXR ordered for AM. Possible downgrade to floor tomorrow. Anticipate d/c sunday. 11/18: Patient seen and examined, continue weaning, will continue diuresis BID, discussed with daughter. 11/19: Patient seen and examined this morning doing well no acute distress noted. Lasix was increased to twice daily to 20 mg IV. Clinically improving. Patient will be transferred to telemetry today can be switched to Lasix p.o. twice daily in a.m. She has her weekly Doppler of lower extremity tomorrow vascular is following for this. She was taken off anticoagulation secondary to retroperitoneal bleed., The anticoagulation was started initially for atrial fibrillation and an infrapopliteal DVT. During her hospital stay she had a prolonged ventilator management and was successfully weaned off. She also received a total of 4 units of packed red blood cell. Hemoglobin has remained stable. Anticipate discharge in next 48 hours if continues to clinically stay stable. : Transferred from ICU on 11/19. Progressive improving. Currently awake and oriented. O2 weaned to 4 L. Hemodynamically stable. BP control being optimized. MiraLAX for constipation. Hemoglobin stable on the heparin infusion, being monitored closely with history of retroperitoneal bleed. 11/21: Patient remains mostly bedridden. She is awake and oriented on 2 L of O2. Repeat ultrasound showed extension of left peroneal DVT into popliteal vein. Heparin was discontinued for significant retroperitoneal bleed and off anticoagulation since. Vascular surgery plan for placement of IVC filter tomorrow. Patient is chest pains, palpitations, hemoptysis. She has some cough. Left lower extremity pain likely from DVT better today. Discussed with the patient, nursing staff and vascular surgery. 11/22: The infrapopliteal vein thrombosis has propagated to the left popliteal vein. Vascular surgery to perform IVC filter placement today. 11/23: Vascular surgery placed IVC filter yesterday. Continue metoprolol 100 mg p.o. twice daily, Aldactone 25 mg p.o. daily and losartan 25 mg p.o. daily. Patient still requiring BiPAP (IPAP18, EPAP8) with FiO2 of 30%. Continue to wean oxygen per pulmonary recommendations. Nurse reports patient is having vaginal bleeding. We will check serial CBC and pelvic ultrasound 11/24: I discussed with cardiology yesterday the need for a LifeVest. LifeVest is ordered and pending. Patient is s/p IVC filter placement. Continue metoprolol 100 mg p.o. twice daily, Aldactone 25 mg p.o. daily and losartan 25 mg p.o. da amy. Patient still requiring BiPAP (IPAP18, EPAP8) with FiO2 of 30%. Continue to wean oxygen per pulmonary recommendations. No further reports of vaginal bleeding. Pelvic ultrasound negative 11/25: Awaiting for LifeVest. Patient is s/p IVC filter placement. Continue metoprolol 100 mg p.o. twice daily, Aldactone 25 mg p.o. daily and losartan 25 mg p.o. daily. Patient still requiring BiPAP (IPAP18, EPAP8) with FiO2 of 30%. Continue to wean oxygen per pulmonary recommendations. 11/26: Physical therapy recommends subacute rehab. Still awaiting LifeVest. Patient is s/p IVC filter placement. Continue metoprolol 100 mg p.o. twice daily, Aldactone 25 mg p.o. daily and losartan 25 mg p.o. daily. Patient still requiring BiPAP (IPAP18, EPAP8) with FiO2 of 30% at night. Continue to wean oxygen per pulmonary recommendations. Patient currently with 2 L O2. 11/27: Physical therapy recommends subacute rehab. Patient has a LifeVest. Patient's left lower extremity pain likely related to DVT. Continue pain control. Continue metoprolol 100 mg p.o. twice daily, Aldactone 25 mg p.o. daily and losartan 25 mg p.o. daily. Patient still requiring BiPAP (IPAP18, EPAP8) with FiO2 of 30% at night. 11/28: Physical therapy recommends subacute rehab. Patient has a LifeVest. Patient continues to complain of left lower extremity pain which makes it very difficult for ambulation. Continue Percocet for pain control. Add neurontin for possible neuropathy. Etiology is likely secondary to DVT. Continue metoprolol 100 mg p.o. twice daily, Aldactone 25 mg p.o. daily and losartan 25 mg p.o. daily. Patient still requiring BiPAP (IPAP18, EPAP8) with FiO2 of 30% at night. Repeated Doppler US of LLE and will ask vascular surgery to revisit. 11/29; worsening lower extremity DVTs, vascular following, on heparin drip 11/30; low-grade fever, leukocytosis, shortness of breath, chest x-ray possible left-sided pneumonia/possible healthcare associated pneumonia Blood cultures already sent, empiric antibiotic cefepime[renal dose confirmed with pharmacist] ID consult if needed 12/01; gram-positive bacteremia preliminary, add vancomycin 1 dose, repeat cultures, consult ID Worsening renal function, nephrology initiated hemodialysis today, patient is critically ill, very poor prognosis, with multiple comorbidities And critical issues. [employer] recommendations noted and appreciated 12/02; Gram positive bacteremia/possible HCAP and sepsis, on cefepime and 1 dose Vanco. Nephrology initiated hemodialysis, ID consult. Patient is hypotensive, pulmonary critical recommended transfer to ICU and start vasopressors for close observation overnight. Dr. Padron discussed with patient's daughter over patient's telephone and discussed in detail patient's condition, new developments sepsis, renal failure on hemodialysis anticoagulation for DVT and severe cardiomyopathy, also discussed poor prognosis, and the plans of transferring the patient to ICU for close observation. Many questions, and answered all of them. dr. Padron also discussed with granddaughter at the bedside and patient was moved to ICU, She had numerous questions answered all of them and discussed the current co ndition prognosis and treatment plan. She verbalized understanding 12/03: Patient was transferred to ICU yesterday evening for hypotension however she did not need to be started on any vasopressin therapy. Patient is on p.o. midodrine and all her antihypertensives have been held. She also received albumin bolus. Patient will be transferred to the floor today. Still complains of bilateral lower extremity pain. Patient is on cefepime and she is scheduled for dialysis today. 12/04: Some complaint of leg pain. Percocet given for pain control. Patient is very deconditioned, will need aggressive PT. Will work on d/c planning with cm. 12/05: Patient does not appear to be in distress this AM. tachycardic hr on encounter and overnight, was given diltiazem by administrative office manager. Cardiology initiated metoprolol and amiodorone on patient this morning. She denies any pain except for discomfort in left lower extremity. Controlled with percocet. She also states that she does not have any urine output and has been constipated. Will order bowel regimen. Discharge needs discussed with CM which include Lifevest, BIPAP for nightly use, and possible set up for dialysis. She was visiting on a visa to the from [place] however is technically a citizen of [place] which makes placement a continued challenge. 12/06: Case management reports patient will need LifeVest, walker, CPAP and arrangements for outpatient hemodialysis. However, patient is uninsured. I discussed with the daughter Eva plans for home hospice. Eva reports that she is willing to have hospice to obtain additional resources but is not wanting palliative care/comfort measures. 12/07: Awaiting LifeVest and outpatient HD arrangements. I d/w CM discharge planning. Pt still with heparin drip but amiodarone changed to p.o. 200mg BID. Cont. Metoprolol 50mg BID. Hold LAYO and ARB for renal fxn. Patient for outpatient ischemic evaluation per Cardiology. Leukocytosis likely related to retroperitoneal hematoma. ID wants to monitor off abx. 12/08: Awaiting LifeVest and outpatient HD arrangements. I d/w CM discharge planning. Pt still with heparin drip. Await cardiology recommendations to transition to p.o. anticoagulation. Patient for outpatient ischemic evaluation per Cardiology. Leukocytosis likely related to retroperitoneal hematoma. Continue to monitor off antibiotics. Continue volume management per nephrology with hemodialysis 12/09: Patient with PermCath placement today. Nephrology reports patient hypotensive during hemodialysis and started 10 mg of midodrine for hypotension. Losartan discontinued. Continue to obtain daily weights and Strict I/O's. Renally dose medications and avoid nephrotoxic agents. Patient for outpatient ischemic evaluation per Cardiology. Leukocytosis likely related to retroperitoneal hematoma. Continue to monitor off antibiotics. Awaiting LifeVest and outpatient HD arrangements. 12/10: Continue hemodialysis per nephrology recommendations. We will discontinue heparin drip and start Eliquis 5 mg p.o. twice daily for anticoagulation. Blood pressure appears to be improved. Continue midodrine. Continue to obtain daily weights and Strict I/O's. Renally dose medications and avoid nephrotoxic agents. Patient for outpatient ischemic evaluation per Cardiology. Leukocytosis likely related to retroperitoneal hematoma. Continue to monitor off antibiotics. Awaiting LifeVest and outpatient HD arrangements. History Interval history: No new issues overnight. Hospitalist Physical - Constitutional Vitals: Temp Pulse Resp BP Pulse Ox 97.5 F L 76 18 119/71 96 12/10/21 07:52 12/10/21 08:00 12/10/21 08:00 12/10/21 09:25 12/10/21 08:00 General appearance: Present: mild distress, well-nourished, obese (Morbidly obese), other (Chronically ill looking) - EENT Eyes: Present: PERRL, EOM intact ENT: hearing intact, clear oral mucosa, dentition normal - Neck Neck: Present: supple, normal ROM - Respiratory Respiratory effort: normal Respiratory: bilateral: CTA - Cardiovascular Rhythm: regular Heart Sounds: Present: S1 & S2. Absent: gallop, rub - Extremities Extremities: no ischemia, No edema, Full ROM - Abdominal General gastrointestinal: soft, non-tender, non-distended, normal bowel sounds - Integumentary Integumentary: Present: clear, warm, dry - Neurologic Neurologic: CNII-XII intact, moves all extremities HEART Score - HEART Score Troponin: Troponin T 1.150 ng/mL (0.00-0.029) H* D 10/29/21 22:34 Results - Labs CBC & Chem 7: 12/10/21 05:22 12/10/21 05:22 Labs: Laboratory Last Values WBC 14.5 K/mm3 (4.5-11.0) H 12/10/21 05:22 RBC 2.65 M/mm3 (3.65-5.03) L 12/10/21 05:22 Hgb 7.7 gm/dl (10.1-14.3) L 12/10/21 05:22 Hct 23.6 % (30.3-42.9) L 12/10/21 05:22 MCV 89 fl (79-97) 12/10/21 05:22 MCH 29 pg (28-32) 12/10/21 05:22 MCHC 33 % (30-34) 12/10/21 05:22 RDW 17.0 % (13.2-15.2) H 12/10/21 05:22 Plt Count 119 K/mm3 (140-440) L 12/10/21 05:22 Lymph % (Auto) 11.1 % (13.4-35.0) L 11/29/21 13:51 Jack % (Auto) 15.5 % (0.0-7.3) H 11/29/21 13:51 Eos % (Auto) 1.0 % (0.0-4.3) 11/29/21 13:51 Baso % (Auto) 0.6 % (0.0-1.8) 11/29/21 13:51 Lymph # (Auto) 1.4 K/mm3 (1.2-5.4) 11/29/21 13:51 Jack # (Auto) 2.0 K/mm3 (0.0-0.8) H 11/29/21 13:51 Eos # (Auto) 0.1 K/mm3 (0.0-0.4) 11/29/21 13:51 Baso # (Auto) 0.1 K/mm3 (0.0-0.1) 11/29/21 13:51 Add Manual Diff Complete 12/10/21 05:22 Total Counted 100 12/10/21 05:22 Seg Neutrophils % 71.8 % (40.0-70.0) H 11/29/21 13:51 Seg Neuts % (Manual) 73.0 % (40.0-70.0) H 12/10/21 05:22 Band Neutrophils % 12.0 % 12/10/21 05:22 Lymphocytes % (Manual) 7.0 % (13.4-35.0) L 12/10/21 05:22 Reactive Lymphs % (Man) 0 % 12/10/21 05:22 Monocytes % (Manual) 1.0 % (0.0-7.3) 12/10/21 05:22 Eosinophils % (Manual) 1.0 % (0.0-4.3) 12/10/21 05:22 Basophils % (Manual) 2.0 % (0.0-1.8) H 12/10/21 05:22 Metamyelocytes % 0 % 12/10/21 05:22 Myelocytes % 4.0 % 12/10/21 05:22 Promyelocytes % 0 % 03/19/22 05:22 Blast Cells % 0 % 12/10/21 05:22 Nucleated RBC % 1.0 % (0.0-0.9) H 12/10/21 05:22 Seg Neutrophils # 9.3 K/mm3 (1.8-7.7) H 11/29/21 13:51 Seg Neutrophils # Man 10.6 K/mm3 (1.8-7.7) H 12/10/21 05:22 Band Neutrophils # 1.7 K/mm3 12/10/21 05:22 Lymphocytes # (Manual) 1.0 K/mm3 (1.2-5.4) L 12/10/21 05:22 Abs React Lymphs (Man) 0.0 K/mm3 12/10/21 05:22 Monocytes # (Manual) 0.1 K/mm3 (0.0-0.8) 12/10/21 05:22 Eosinophils # (Manual) 0.1 K/mm3 (0.0-0.4) 12/10/21 05:22 Basophils # (Manual) 0.3 K/mm3 (0.0-0.1) H 12/10/21 05:22 Metamyelocytes # 0.0 K/mm3 12/10/21 05:22 Myelocytes # 0.6 K/mm3 12/10/21 05:22 Promyelocytes # 0.0 K/mm3 12/10/21 05:22 Blast Cells # 0.0 K/mm3 12/10/21 05:22 WBC Morphology Not Reportable 12/10/21 05:22 Hypersegmented Neuts Not Reportable 12/10/21 05:22 Hyposegmented Neuts Not Reportable 12/10/21 05:22 Hypogranular Neuts Not Reportable 12/10/21 05:22 Smudge Cells Not Reportable 12/10/21 05:22 Toxic Granulation Not Reportable 12/10/21 05:22 Toxic Vacuolation Not Reportable 12/10/21 05:22 Dohle Bodies Not Reportable 12/10/21 05:22 Pelger-Huet Anomaly Not Reportable 12/10/21 05:22 Manny Rods Not Reportable 12/10/21 05:22 Platelet Estimate Consistent w auto 12/10/21 05:22 Clumped Platelets Not Reportable 12/10/21 05:22 Plt Clumps, EDTA Not Reportable 12/10/21 05:22 Large Platelets Not Reportable 12/10/21 05:22 Giant Platelets Not Reportable 12/10/21 05:22 Platelet Satelliting Not Reportable 12/10/21 05:22 Plt Morphology Comment Not Reportable 12/10/21 05:22 RBC Morphology Not Reportable 12/10/21 05:22 Dimorphic RBCs Not Reportable 12/10/21 05:22 Polychromasia Not Reportable 12/10/21 05:22 Hypochromasia 1+ 12/10/21 05:22 Poikilocytosis Not Reportable 12/10/21 05:22 Anisocytosis 1+ 12/10/21 05:22 Microcytosis Not Reportable 12/10/21 05:22 Macrocytosis Not Reportable 12/10/21 05:22 Spherocytes Not Reportable 12/10/21 05:22 Pappenheimer Bodies Not Reportable 12/10/21 05:22 Sickle Cells Not Reportable 12/10/21 05:22 Target Cells Not Reportable 12/10/21 05:22 Tear Drop Cells Not Reportable 12/10/21 05:22 Ovalocytes Not Reportable 12/10/21 05:22 Helmet Cells Not Reportable 12/10/21 05:22 Maradiaga-Knierim Bodies Not Reportable 12/10/21 05:22 [place] Rings Not Reportable 12/10/21 05:22 [place] Cells Not Reportable 12/10/21 05:22 Bite Cells Not Reportable 12/10/21 05:22 Crenated Cell Not Reportable 12/10/21 05:22 Elliptocytes Not Reportable 12/10/21 05:22 Acanthocytes (Spur) Not Reportable 12/10/21 05:22 Rouleaux Not Reportable 12/10/21 05:22 Hemoglobin C Crystals Not Reportable 12/10/21 05:22 Schistocytes Not Reportable 12/10/21 05:22 Malaria parasites Not Reportable 12/10/21 05:22 Magdy Bodies Not Reportable 12/10/21 05:22 Hem Pathologist Commnt No 12/10/21 05:22 PT 17.2 Sec. (12.2-14.9) H 10/30/21 16:30 INR 1.27 (0.87-1.13) H 10/30/21 16:30 APTT 44.4 Sec. (24.2-36.6) H 10/30/21 16:30 D-Dimer > 79728 ng/mlDDU (0-234) H 10/30/21 Unknown Heparin Anti-Xa Level 0.67 U.I./ml (0.3-0.7) 12/09/21 18:44 ABG pH 7.450 pH Units (7.350-7.450) 12/01/21 Unknown ABG pCO2 38.0 mm Hg 12/01/21 Unknown ABG pO2 88.9 mm Hg (80.0-90.0) 12/01/21 Unknown ABG HCO3 25.8 mmol/L (20.0-26.0) 12/01/21 Unknown ABG O2 Saturation 97.2 % (95.0-99.0) 12/01/21 Unknown ABG O2 Content 19.4 (0.0-44) 12/01/21 Unknown ABG Base Excess 1.9 mmol/L (-2.0-3.0) 12/01/21 Unknown ABG Hemoglobin 14.3 gm/dl (12.0-16.0) 12/01/21 Unknown ABG Carboxyhemoglobin 1.0 % (0.0-5.0) 12/01/21 Unknown ABG Methemoglobin 0.5 % (0.0-1.5) 12/01/21 Unknown Oxyhemoglobin 95.8 % (95.0-99.0) 12/01/21 Unknown FiO2 21 % 12/01/21 Unknown Sodium 131 mmol/L (137-145) L D 12/10/21 05:22 Potassium 5.0 mmol/L (3.6-5.0) 12/10/21 05:22 Chloride 97.0 mmol/L (98-107) L 12/10/21 05:22 Carbon Dioxide 24 mmol/L (22-30) 12/10/21 05:22 Anion Gap 15 mmol/L 12/10/21 05:22 BUN 34 mg/dL (7-17) H 12/10/21 05:22 Creatinine 2.9 mg/dL (0.6-1.2) H 12/10/21 05:22 Estimated GFR 20 ml/min 12/10/21 05:22 BUN/Creatinine Ratio 12 % 12/10/21 05:22 Glucose 99 mg/dL (65-100) 12/10/21 05:22 POC Glucose 106 mg/dL (70-105) H 12/10/21 07:48 Hemoglobin A1c 6.7 % (4-6) H 10/31/21 04:30 Lactic Acid 0.70 mmol/L (0.7-2.0) 10/31/21 15:45 Calcium 8.7 mg/dL (8.4-10.2) 12/10/21 05:22 Phosphorus 5.20 mg/dL (2.5-4.5) H 12/02/21 03:22 Magnesium 1.60 mg/dL (1.7-2.3) L 11/19/21 14:38 Ferritin 208.4 ng/mL (10.0-200.0) H 10/30/21 Unknown Total Bilirubin < 0.20 mg/dL (0.1-1.2) 11/06/21 02:35 AST 21 units/L (5-40) 11/06/21 02:35 ALT 77 units/L (7-56) H 11/06/21 02:35 Alkaline Phosphatase 84 units/L (35-129) 11/06/21 02:35 Ammonia 31.0 umol/L (25-60) 10/29/21 15:10 Lactate Dehydrogenase 469 units/L (91-180) H 10/30/21 Unknown Troponin T 1.150 ng/mL (0.00-0.029) H* D 10/29/21 22:34 C-Reactive Protein 13.40 mg/dL (0.00-1.30) H 10/30/21 Unknown Total Protein 6.3 g/dL (6.3-8.2) 11/06/21 02:35 Albumin 3.0 g/dL (3.9-5) L 11/06/21 02:35 Albumin/Globulin Ratio 0.9 % 11/06/21 02:35 Triglycerides 68 mg/dL (2-149) 10/29/21 19:40 Cholesterol 98 mg/dL (50-199) 10/29/21 19:40 LDL Cholesterol Direct 43 mg/dL (50-130) L 10/29/21 19:40 HDL Cholesterol 50 mg/dL (40-59) 10/29/21 19:40 Cholesterol/HDL Ratio 1.96 % 10/29/21 19:40 Procalcitonin 61.95 ng/mL (<0.15) 10/30/21 Unknown TSH 3.080 mlU/mL (0.270-4.200) 10/29/21 15:10 Urine Color Yellow (Yellow) 11/13/21 08:30 Urine Turbidity Slightly-cloudy (Clear) 11/13/21 08:30 Urine pH 6.0 (5.0-7.0) 11/13/21 08:30 Ur Specific [place] 1.010 (1.003-1.030) 11/13/21 08:30 Urine Protein <15 mg/dl mg/dL (Negative) 11/13/21 08:30 Urine Glucose (UA) Neg mg/dL (Negative) 11/13/21 08:30 Urine Ketones Tr mg/dL (Negative) 11/13/21 08:30 Urine Blood Sm (Negative) 11/13/21 08:30 Urine Nitrite Neg (Negative) 11/13/21 08:30 Urine Bilirubin Neg (Negative) 11/13/21 08:30 Urine Urobilinogen < 2.0 mg/dL (<2.0) 11/13/21 08:30 Ur Leukocyte Esterase Neg (Negative) 11/13/21 08:30 Urine WBC (Auto) < 1.0 /HPF (0.0-6.0) 11/13/21 08:30 Urine RBC (Auto) < 1.0 /HPF (0.0-6.0) 11/13/21 08:30 U Epithel Cells (Auto) < 1.0 /HPF (0-13.0) 11/13/21 08:30 Urine Mucus Few /HPF 10/29/21 18:15 Urine Eosinophils None seen (None Seen) 11/04/21 Unknown Urine Creatinine 190.9 mg/dL (0.1-20.0) H 11/04/21 Unknown Protein/Creatinin Ratio 0.90 11/04/21 Unknown Urine Sodium 10 mmol/L 11/04/21 Unknown Urine Total Protein 172 mg/dL (5-11.8) H 11/04/21 Unknown Salicylates < 0.3 mg/dL (2.8-20.0) L 10/29/21 15:10 Urine Opiates Screen Negative 10/29/21 18:15 Urine Methadone Screen Negative 10/29/21 18:15 Acetaminophen 5.0 ug/mL (10.0-30.0) L 10/29/21 15:10 Ur Barbiturates Screen Negative 10/29/21 18:15 Ur Phencyclidine Scrn Negative 10/29/21 18:15 Ur Amphetamines Screen Negative 10/29/21 18:15 U Benzodiazepines Scrn Negative 10/29/21 18:15 Urine Cocaine Screen Negative 10/29/21 18:15 U Marijuana (THC) Screen Negative 10/29/21 18:15 Drugs of Abuse Note Disclamer 10/29/21 18:15 Plasma/Serum Alcohol < 0.01 % (0-0.07) 10/29/21 15:10 Coronavirus (PCR) Negative (Negative) 10/30/21 Unknown Hepatitis A IgM Ab Non-reactive (NonReactive) 12/01/21 19:36 Hep Bs Antigen Non-reactive (Negative) 12/01/21 19:36 Hep B Core IgM Ab Non-reactive (NonReactive) 12/01/21 19:36 Hepatitis C Antibody Non-reactive (NonReactive) 12/01/21 19:36 Blood Type O POSITIVE 11/12/21 04:15 Antibody Screen Negative 11/12/21 04:15 Crossmatch See Detail 11/12/21 04:15 Krishna/IV: Voiding Method External Female Catheter Active Medications - Current Medications Current Medications: Generic Name Dose Route Start Last Admin Trade Name Freq PRN Reason Stop Dose Admin Acetaminophen 650 mg 10/29/21 17:04 11/12/21 22:53 Acetaminophen 650 Mg Rect Supp OK 650 mg Q6H PRN Administration Pain MILD(1-3)/Fever >100.5/NIEVES Acetaminophen 650 mg 11/19/21 16:35 12/02/21 18:20 Acetaminophen 325 Mg Tab PO 650 mg Q6HR PRN Administration PAIN Albumin Human 50 gm 12/02/21 11:00 12/02/21 11:55 Albumin Human 25% (25 Gm/100 Ml) Inj IV 50 gm ZACH PRN Administration Hypotension Alprazolam 0.25 mg 11/14/21 14:29 12/07/21 12:00 Alprazolam 0.25 Mg Tab PO 0.25 mg Q8H PRN Administration Anxiety Amiodarone HCl 200 mg 12/10/21 10:00 12/10/21 09:25 Amiodarone 200 Mg Tab PO 200 mg DAILY RAMON Administration Docusate Sodium 100 mg 11/18/21 15:00 12/10/21 09:25 Docusate Sodium 100 Mg Cap PO 100 mg BID RAOMN Administration Epoetin [place]-epbx 10,000 unit 12/06/21 10:00 12/07/21 15:30 Epoetin [place]-Epbx 10,000 Unit/1 Ml Vial IV 10,000 unit ZACH PRN Administration hemodialysis Famotidine 10 mg 11/06/21 10:00 12/10/21 09:25 Famotidine 10 Mg Tab PO 10 mg BID RAMON Administration Gabapentin 100 mg 11/28/21 14:00 12/10/21 06:10 Gabapentin 100 Mg Cap PO 100 mg Q8HR RAMON Administration Heparin Sodium (Porcine) 4,000 unit 12/01/21 07:50 12/02/21 17:22 Heparin 10,000 Units/10 Ml Vial 40 unit/kg (4300 unit) 4,000 unit IV Administration Q6H PRN Anti-Xa Assay < 0.1 units/ml Hydrophilic Ointment 1 applic 10/29/21 14:29 11/09/21 08:51 Lip Therapy Vaseline TP 1 applic Q2HR PRN Administration Dry Lips Heparin Sodium/Sodium Chloride 25,000 unit in 500 mls @ 30 mls/hr 11/28/21 17:00 12/10/21 09:33 Heparin/ 0.45% Nacl-25,000 Unit/500 Ml IV 1,750 units/hr TITR RAMON 35 mls/hr Administration Protocol 1,500 UNITS/HR Sodium Chloride 100 mls @ 999 mls/hr 12/01/21 14:44 Nacl 0.9% IV ZACH PRN Hypotension Insulin Human Lispro 0 unit 11/25/21 22:00 12/10/21 11:13 Insulin Lispro 100 Unit/Ml SUB-Q Not Given ACHS [facility] Protocol Lactulose 20 gm 11/18/21 14:43 12/06/21 15:26 Lactulose 20 Gm/30 Ml Oral Liqd PO 20 gm Q6H PRN Administration Constipation Melatonin 10 mg 11/22/21 17:31 12/09/21 22:07 Melatonin 5 Mg Tab PO 10 mg QHS PRN Administration Sleep Metoprolol Tartrate 100 mg 12/07/21 11:00 12/10/21 09:25 Metoprolol Tartrate 50 Mg Tab PO 100 mg BID RAMON Administration Midodrine 10 mg 12/01/21 12:00 12/10/21 09:25 Midodrine 5 Mg Tab PO 10 mg TID@0800,1200,1600 RAMON Administration Morphine Sulfate 1 mg 11/28/21 15:00 12/03/21 21:43 Morphine 2 Mg/1 Ml Inj IV 1 mg Q4H PRN Administration Pain, Moderate (4-6) Multi-Ingred Cream/Lotion/Oil/Oint 1 applic 10/29/21 14:29 11/06/21 09:25 Mineral Oil/Petrolatum, White Ophth Oint 3.5 Gm OU 1 applic Q4HR PRN Administration Dry Eye(s) Oxycodone/Acetaminophen 1 tab 11/27/21 14:31 12/05/21 22:39 Oxycodone /Acetaminophen 5-325mg Tab PO 1 tab Q4H PRN Administration Pain, Moderate (4-6) Polyethylene Glycol 17 gm 11/20/21 12:47 12/08/21 09:54 Polyethylene Glycol 3350 17 Gm Powder PO 17 gm QDAY PRN Administration Constipation Senna/Docusate Sodium 1 tab 11/16/21 22:00 12/10/21 09:25 Sennosides/Docusate Sodium 8.6/50 Mg Tab PO 1 tab BID RAMON Administration Sodium Chloride 10 ml 10/29/21 22:00 12/10/21 09:26 Sodium Chloride 0.9% 10 Ml Flush Syringe IV 10 ml BID RAMON Administration Sodium Chloride 10 ml 10/29/21 17:04 Sodium Chloride 0.9% 10 Ml Flush Syringe IV PRN PRN LINE FLUSH Nutrition/Malnutrition Assess - Dietary Evaluation Nutrition/Malnutrition Findings: Nutrition Notes Start: 10/30/21 09:50 Freq: Status: Active Protocol: Document 12/05/21 17:37 MEENU (Rec: 12/05/21 17:55 MEENU [id number]) Nutrition Notes Initial or Follow up Brief Note Current Diagnosis Acute Kidney Injury,Sepsis, Hypertension Other Pertinent Diagnosis s/p cardiac arrest, anemia Current Diet Renal -mech Soft- Diet + D Supplement (since D 12/02). Height 5 ft 10 in Weight 114.8 kg [place] Body Weight (kg) 68.18 BMI 36.3 Weight change and time frame No body weight change reported in 3 days. Weight Status Obese Subjective/Other Information RD consult for routine F/U on Dietary tolerance. Pt's PO intake of meals has improved to 75% and well tolerated, according to ADL notes. Pt still receiving vasopressors. Percent of energy/protein needs met: Prescribed Renal Diet provides for energy/protein needs (2, 072 Kcal/77 g) during LOS; additionally, Dietary Supplements will compensate for possible poor or insufficient PO intake of meals with 425 Kcal and 19 g of protein. Current % PO Good (75-100%) #1 Nutrition Diagnosis Inadequate oral intake Comments: Pt's PO intake of meals has been at 75%, and well tolerated, according to ADL notes. Diet advanced to Renal - mechanical soft-. Diagnosis Progress(for reassessment Improved documentation) Is patient on ventilator? No Is Patient Ambulatory and/or Out of Bed No REE-([facility]-confined to bed) 2120.952 Kcal/Kg value to use for calculation 14 Approximate Energy Requirements Using 1607 kcal/Kg Calculation Used for Recommendations Kcal/kg Additional Notes Protein: >1.2 g/Kg AdjBW; >110 g/day. Fluids: 1-1.5 L/day, or as per MD. Nutrition Intervention Change Diet Order: Continue Renal -mechanical soft- Diet. Add Supplement/Snack (indicate name/kcal Nepro once daily (vanilla) /protein ) Provides kCal: 425 Provides Protein (gm) 19 Goal #1 Compensate, through dietary supplementation, for possible poor or insufficient PO intake of meals during LOS. Goal #2 Facilitate PO intake of meals with mechanical modification during LOS. Goal #3 Maintain body weight within +/ -3% of admission body weight during LOS. Follow-Up By: 12/13/21 Additional Comments Continue monitoring food tolerance, %PO intake of meals , and BM.
--- NOTE | 2021-12-10 11:34 | Event Note ---
Date: 12/10/21 WBC continues to slowly downtrend. Remains off abx. No source of infection identified. Will sign off. Please reconsult if needed.
[2021-12-10] MEDS: oxyCODONE /ACETAMINOPHEN 5-325MG TAB PO PRN ×2 (13:08→18:00)
--- NOTE | 2021-12-10 16:14 | Progress Note ---
Assessment and Plan 66 YO Female with Obesity presents to ED for evaluation. Patient is intubated and on ventilatory support . Patient was attending [facility] when the patient collapsed and lost consciousness. Witnesses began CPR. EMS was notified and upon arrival the patient was found to be in distress without perfusing cardiac rhythm. Patient initiated on ACLS protocol and subsequently intubated in the field and subsequent transported to [facility] for further care and evaluation of the aforementioned symptoms. The patient regained spontaneous ci rculation during transport. Patient seen and evaluated upon arrival and found to have acute hypoxemic respiratory failure, septic shock suspected secondary to aspiration pneumonia, metabolic acidosis, toxic metabolic encephalopathy, shock liver, and cardiac arrest with return of perfusing cardiac rhythm after initiation of ACLS protocol. Patient initiated on sepsis protocol as well as pneumonia protocol. Patient admitted to ICU. No reports of fever, chills, chest pain, palpitation, productive cough, skin rash, recent contact, known exposure to COVID-19. Patient has history of diabetes and hypertension. According to the chart review, patient has no history of smoking, alcohol or drug abuse. Patient eventually extubated. Patient transfered to Telemetry. Patient presently sleeping. on 2 litres O2. O2 saturation 99%. Patient Obese , No acute respiratory distress. Patient afebrile. Has leukocytosis. Blood pressure 105/56, pulse 90, Respirations 19. Chest xray done 11/18/21 reported Improving interstitial edema. Bilateral duplex study of legs 11/21/21 reported Acute occlusive thrombus is now visualized within the right peroneal veins. There is propagation of the left calf DVT into the popliteal vein on today's exam (near occlusive). CTA of chest:12/01/21 reported The exam is limited secondary to respiratory motion artifact. Low lung volumes. No central pulmonary thromboembolus is identified. The thoracic aorta is grossly unremarkable without aneurysm or dissection. Mild bibasilar atelectasis are present. Incidentally there are multiple healing anterior rib fractures involving the first, second, third, fourth, fifth, sixth and seventh ribs bilaterally. There is a nondisplaced fracture involving the left eighth rib. Patient presently on famotidine. I/V Heparin. DVT Management as per vascular surgery. - Patient Problems (1) Acute hypoxemic respiratory failure Current Visit: Yes Status: Acute Plan to address problem: Patient presently on 2 litres O2. O2 saturation 99%. No acute respiratory distress. (2) Cardiopulmonary arrest Current Visit: Yes Status: Acute Plan to address problem: S/P Resucitation to ROSC. (3) Atrial fibrillation and flutter Current Visit: Yes Status: Acute Plan to address problem: Management as per cardiology. Patient is on I/V Heparin. (4) Acute metabolic encephalopathy Current Visit: Yes Status: Acute Plan to address problem: Management as per primary care. (5) Acute kidney injury Current Visit: Yes Status: Acute Plan to address problem: Management as per nephrology. (6) DVT (deep venous thrombosis) Current Visit: Yes Status: Acute Qualifiers: Affected thrombotic vein of extremity: peroneal Plan to address problem: Patient is on I/V Heparin. Management as per vascular surgery. (7) Obesity hypoventilation syndrome Current Visit: Yes Status: Acute Plan to address problem: Recommend sleep study as out patient. Dietary consultion for weight reduction diet. Recommend BIPAP during night time PRN for day time sleepiness. (8) Pneumothorax, right Current Visit: Yes Status: Acute Plan to address problem: S/P chest tube placement and expansion of right lung. Subjective Date of service: 12/10/21 Principal diagnosis: AHRF; Cardiac arrest; R. pneumothorax; pneumonia; AMS; DVT's; SIERRA; Obesity Interval history: 66 YO Female with Obesity presents to ED for evaluation. Patient is intubated and on ventilatory support . Patient was attending [facility] [employer] [facility] when the patient collapsed and lost consciousness. Witnesses began CPR. EMS was notified and upon arrival the patient was found to be in distress without perfusing cardiac rhythm. Patient initiated on ACLS protocol and subsequently i ntubated in the field and subsequent transported to [facility] for further care and evaluation of the aforementioned symptoms. The patient regained spontaneous circulation during transport. Patient seen and evaluated upon arrival and found to have acute hypoxemic respiratory failure, septic shock suspected secondary to aspiration pneumonia, metabolic acidosis, toxic metabolic encephalopathy, shock liver, and cardiac arrest with return of perfusing cardiac rhythm after initiation of ACLS protocol. Patient initiated on sepsis protocol as well as pneumonia protocol. Patient admitted to ICU. No reports of fever, chills, chest pain, palpitation, productive cough, skin rash, recent contact, known exposure to COVID-19. Patient has history of diabetes and hypertension. According to the chart review, patient has no history of smoking, alcohol or drug abuse. Patient eventually extubated. Patient transfered to Telemetry. Patient presently sleeping. on 2 litres O2. O2 saturation 99%. Patient Obese , No acute respiratory distress. Patient afebrile. Has leukocytosis. Blood pressure 105/56, pulse 90, Respirations 19. Chest xray done 11/18/21 reported Improving interstitial edema. Bilateral duplex study of legs 11/21/21 reported Acute occlusive thrombus is now visualized within the right peroneal veins. There is propagation of the left calf DVT into the popliteal vein on today's exam (near occlusive). CTA of chest:12/01/21 reported The exam is limited secondary to respiratory motion artifact. Low lung volumes. No central pulmonary thromboembolus is identified. The thoracic aorta is grossly unremarkable without aneurysm or dissection. Mild bibasilar atelectasis are present. Incidentally there are multiple healing anterior rib fractures involving the first, second, third, fourth, fifth, sixth and seventh ribs bilaterally. There is a nondisplaced fracture involving the left eighth rib. Patient presently on famotidine. I/V Heparin. DVT Management as per vascular surgery. Objective Vital Signs - 12hr 12/10/21 12/10/21 12/10/21 07:52 08:00 09:25 Temperature 97.5 F L Pulse Rate 67 Pulse Rate [ 76 From Monitor] Respiratory 16 18 Rate Blood Pressure 119/71 Blood Pressure 119/71 [Left] O2 Sat by Pulse 100 96 Oximetry 12/10/21 12/10/21 12:00 12:14 Temperature 97.6 F Pulse Rate 93 H 66 Pulse Rate [ From Monitor] Respiratory 18 Rate Blood Pressure 118/70 Blood Pressure [Left] O2 Sat by Pulse 99 Oximetry Constitutional: no acute distress, asleep, other (elderly obese female with mildly increased respiratory effort at rest ) Eyes: non-icteric ENT: oropharynx moist Neck: supple, no lymphadenopathy, no JVD, other (large circumference) Effort: normal Ascultation: Bilateral: diminished breath sounds, rhonchi (bases) Percussion: Bilateral: not dull Cardiovascular: regular rate and rhythm, other (no R/M) Gastrointestinal: normoactive bowel sounds, soft, non-tender, other (obese) Integumentary: normal, other (Left flank ecchymosis with induration) Extremities: no cyanosis, pulses normal, no ischemia or petechiae, edema (2+) Neurologic: normal mental status, non-focal exam (grossly), pupils equal and round, motor strength normal and (weak) Psychiatric: other (Patient sleeping at this time.) CBC and BMP: 12/10/21 05:22 12/11/21 05:21 ABG, PT/INR, D-dimer: ABG ABG pH 7.450 pH Units (7.350-7.450) 12/01/21 Unknown ABG pCO2 38.0 mm Hg 12/01/21 Unknown ABG pO2 88.9 mm Hg (80.0-90.0) 12/01/21 Unknown ABG O2 Saturation 97.2 % (95.0-99.0) 12/01/21 Unknown PT/INR, D-dimer PT 17.2 Sec. (12.2-14.9) H 10/30/21 16:30 INR 1.27 (0.87-1.13) H 10/30/21 16:30 D-Dimer > 56303 ng/mlDDU (0-234) H 10/30/21 Unknown Abnormal lab findings: Abnormal Labs 10/29/21 10/29/21 10/29/21 15:10 15:10 15:10 WBC 27.8 H RBC Hgb Hct MCH 27 L RDW Plt Count Lymph % (Auto) [place] % (Auto) Lymph # (Auto) [place] # (Auto) Seg Neutrophils % Seg Neuts % (Manual) 78.0 H Lymphocytes % (Manual) 10.0 L Monocytes % (Manual) Basophils % (Manual) Nucleated RBC % Seg Neutrophils # Seg Neutrophils # Man 21.7 H Lymphocytes # (Manual) Monocytes # (Manual) 1.4 H Eosinophils # (Manual) Basophils # (Manual) PT INR APTT D-Dimer Heparin Anti-Xa Level ABG pH ABG pO2 ABG HCO3 ABG O2 Saturation ABG Base Excess ABG Hemoglobin Oxyhemoglobin Sodium Potassium Chloride Carbon Dioxide BUN Creatinine Glucose POC Glucose Hemoglobin A1c Lactic Acid 6.80 H* Calcium Phosphorus Magnesium Ferritin AST ALT Alkaline Phosphatase Lactate Dehydrogenase Troponin T 0.089 H C-Reactive Protein Total Protein Albumin LDL Cholesterol Direct Urine Creatinine Urine Total Protein Salicylates Acetaminophen Crossmatch 10/29/21 10/29/21 10/29/21 15:10 15:10 15:10 WBC RBC Hgb Hct MCH RDW Plt Count Lymph % (Auto) [place] % (Auto) Lymph # (Auto) [place] # (Auto) Seg Neutrophils % Seg Neuts % (Manual) Lymphocytes % (Manual) Monocytes % (Manual) Basophils % (Manual) Nucleated RBC % Seg Neutrophils # Seg Neutrophils # Man Lymphocytes # (Manual) Monocytes # (Manual) Eosinophils # (Manual) Basophils # (Manual) PT INR APTT D-Dimer Heparin Anti-Xa Level ABG pH ABG pO2 ABG HCO3 ABG O2 Saturation ABG Base Excess ABG Hemoglobin Oxyhemoglobin Sodium 136 L Potassium 2.8 L* Chloride 93.4 L Carbon Dioxide 20 L BUN Creatinine Glucose 330 H POC Glucose Hemoglobin A1c Lactic Acid Calcium Phosphorus Magnesium Ferritin AST 1013 H ALT 1289 H Alkaline Phosphatase 246 H Lactate Dehydrogenase Troponin T C-Reactive Protein Total Protein Albumin LDL Cholesterol Direct Urine Creatinine Urine Total Protein Salicylates < 0.3 L Acetaminophen 5.0 L Crossmatch 10/29/21 10/29/21 10/29/21 15:11 16:01 19:29 WBC RBC Hgb Hct MCH RDW Plt Count Lymph % (Auto) [place] % (Auto) Lymph # (Auto) [place] # (Auto) Seg Neutrophils % Seg Neuts % (Manual) Lymphocytes % (Manual) Monocytes % (Manual) Basophils % (Manual) Nucleated RBC % Seg Neutrophils # Seg Neutrophils # Man Lymphocytes # (Manual) Monocytes # (Manual) Eosinophils # (Manual) Basophils # (Manual) PT INR APTT D-Dimer Heparin Anti-Xa Level ABG pH 7.307 L ABG pO2 64.1 L ABG HCO3 ABG O2 Saturation 90.8 L ABG Base Excess -2.9 L ABG Hemoglobin Oxyhemoglobin 89.3 L Sodium Potassium Chloride Carbon Dioxide BUN Creatinine Glucose POC Glucose Hemoglobin A1c Lactic Acid 2.60 H* Calcium Phosphorus Magnesium 2.90 H Ferritin AST ALT Alkaline Phosphatase Lactate Dehydrogenase Troponin T C-Reactive Protein Total Protein Albumin LDL Cholesterol Direct Urine Creatinine Urine Total Protein Salicylates Acetaminophen Crossmatch 10/29/21 10/29/21 10/30/21 19:40 22:34 04:30 WBC 16.2 H RBC Hgb Hct MCH 26 L RDW 15.5 H Plt Count Lymph % (Auto) 6.2 L [place] % (Auto) Lymph # (Auto) 1.0 L [place] # (Auto) 0.9 H Seg Neutrophils % 88.1 H Seg Neuts % (Manual) Lymphocytes % (Manual) Monocytes % (Manual) Basophils % (Manual) Nucleated RBC % Seg Neutrophils # 14.2 H Seg Neutrophils # Man Lymphocytes # (Manual) Monocytes # (Manual) Eosinophils # (Manual) Basophils # (Manual) PT INR APTT D-Dimer Heparin Anti-Xa Level ABG pH ABG pO2 ABG HCO3 ABG O2 Saturation ABG Base Excess ABG Hemoglobin Oxyhemoglobin Sodium Potassium Chloride Carbon Dioxide BUN Creatinine Glucose POC Glucose Hemoglobin A1c Lactic Acid Calcium Phosphorus Magnesium Ferritin AST ALT Alkaline Phosphatase Lactate Dehydrogenase Troponin T 1.950 H* D 1.150 H* D C-Reactive Protein Total Protein Albumin LDL Cholesterol Direct 43 L Urine Creatinine Urine Total Protein Salicylates Acetaminophen Crossmatch 10/30/21 10/30/21 10/30/21 04:30 04:35 05:45 WBC RBC Hgb Hct MCH RDW Plt Count Lymph % (Auto) [place] % (Auto) Lymph # (Auto) [place] # (Auto) Seg Neutrophils % Seg Neuts % (Manual) Lymphocytes % (Manual) Monocytes % (Manual) Basophils % (Manual) Nucleated RBC % Seg Neutrophils # Seg Neutrophils # Man Lymphocytes # (Manual) Monocytes # (Manual) Eosinophils # (Manual) Basophils # (Manual) PT INR APTT D-Dimer Heparin Anti-Xa Level ABG pH ABG pO2 69.5 L ABG HCO3 ABG O2 Saturation ABG Base Excess -2.7 L ABG Hemoglobin Oxyhemoglobin 94.7 L Sodium Potassium Chloride Carbon Dioxide 21 L BUN Creatinine Glucose 159 H POC Glucose 151 H Hemoglobin A1c Lactic Acid Calcium 7.9 L D Phosphorus Magnesium Ferritin AST 461 H ALT 686 H Alkaline Phosphatase 130 H Lactate Dehydrogenase Troponin T C-Reactive Protein Total Protein 5.6 L D Albumin 3.2 L LDL Cholesterol Direct Urine Creatinine Urine Total Protein Salicylates Acetaminophen Crossmatch 10/30/21 10/30/21 10/30/21 11:24 15:59 16:30 WBC RBC Hgb Hct MCH RDW Plt Count Lymph % (Auto) [place] % (Auto) Lymph # (Auto) [place] # (Auto) Seg Neutrophils % Seg Neuts % (Manual) Lymphocytes % (Manual) Monocytes % (Manual) Basophils % (Manual) Nucleated RBC % Seg Neutrophils # Seg Neutrophils # Man Lymphocytes # (Manual) Monocytes # (Manual) Eosinophils # (Manual) Basophils # (Manual) PT 17.2 H INR 1.27 H APTT 44.4 H D-Dimer Heparin Anti-Xa Level ABG pH ABG pO2 ABG HCO3 ABG O2 Saturation ABG Base Excess ABG Hemoglobin Oxyhemoglobin Sodium Potassium Chloride Carbon Dioxide BUN Creatinine Glucose POC Glucose 153 H 109 H Hemoglobin A1c Lactic Acid Calcium Phosphorus Magnesium Ferritin AST ALT Alkaline Phosphatase Lactate Dehydrogenase Troponin T C-Reactive Protein Total Protein Albumin LDL Cholesterol Direct Urine Creatinine Urine Total Protein Salicylates Acetaminophen Crossmatch 10/30/21 10/30/21 10/30/21 23:00 Unknown Unknown WBC RBC Hgb Hct MCH RDW Plt Count Lymph % (Auto) [place] % (Auto) Lymph # (Auto) [place] # (Auto) Seg Neutrophils % Seg Neuts % (Manual) Lymphocytes % (Manual) Monocytes % (Manual) Basophils % (Manual) Nucleated RBC % Seg Neutrophils # Seg Neutrophils # Man Lymphocytes # (Manual) Monocytes # (Manual) Eosinophils # (Manual) Basophils # (Manual) PT INR APTT D-Dimer > 78827 H Heparin Anti-Xa Level 0.82 H ABG pH ABG pO2 ABG HCO3 ABG O2 Saturation ABG Base Excess ABG Hemoglobin Oxyhemoglobin Sodium Potassium Chloride Carbon Dioxide BUN Creatinine Glucose POC Glucose Hemoglobin A1c Lactic Acid Calcium Phosphorus Magnesium Ferritin 208.4 H AST ALT Alkaline Phosphatase Lactate Dehydrogenase Troponin T C-Reactive Protein Total Protein Albumin LDL Cholesterol Direct Urine Creatinine Urine Total Protein Salicylates Acetaminophen Crossmatch 10/30/21 10/31/21 10/31/21 Unknown 04:30 04:30 WBC 14.4 H RBC Hgb Hct MCH 26 L RDW Plt Count Lymph % (Auto) [place] % (Auto) Lymph # (Auto) [place] # (Auto) Seg Neutrophils % Seg Neuts % (Manual) Lymphocytes % (Manual) Monocytes % (Manual) Basophils % (Manual) Nucleated RBC % Seg Neutrophils # Seg Neutrophils # Man Lymphocytes # (Manual) Monocytes # (Manual) Eosinophils # (Manual) Basophils # (Manual) PT INR APTT D-Dimer Heparin Anti-Xa Level ABG pH ABG pO2 ABG HCO3 ABG O2 Saturation ABG Base Excess ABG Hemoglobin Oxyhemoglobin Sodium Potassium 3.5 L Chloride 107.5 H Carbon Dioxide 20 L BUN 28 H Creatinine 1.7 H Glucose 113 H POC Glucose Hemoglobin A1c Lactic Acid Calcium 7.9 L Phosphorus Magnesium Ferritin AST ALT Alkaline Phosphatase Lactate Dehydrogenase 469 H Troponin T C-Reactive Protein 13.40 H Total Protein Albumin LDL Cholesterol Direct Urine Creatinine Urine Total Protein Salicylates Acetaminophen Crossmatch 10/31/21 10/31/21 10/31/21 04:30 05:11 15:30 WBC RBC Hgb Hct MCH RDW Plt Count Lymph % (Auto) [place] % (Auto) Lymph # (Auto) [place] # (Auto) Seg Neutrophils % Seg Neuts % (Manual) Lymphocytes % (Manual) Monocytes % (Manual) Basophils % (Manual) Nucleated RBC % Seg Neutrophils # Seg Neutrophils # Man Lymphocytes # (Manual) Monocytes # (Manual) Eosinophils # (Manual) Basophils # (Manual) PT INR APTT D-Dimer Heparin Anti-Xa Level ABG pH 7.222 L ABG pO2 61.5 L ABG HCO3 ABG O2 Saturation 86.2 L ABG Base Excess -6.3 L ABG Hemoglobin 11.2 L Oxyhemoglobin 84.5 L Sodium Potassium Chloride Carbon Dioxide BUN Creatinine Glucose POC Glucose 106 H Hemoglobin A1c 6.7 H Lactic Acid Calcium Phosphorus Magnesium Ferritin AST ALT Alkaline Phosphatase Lactate Dehydrogenase Troponin T C-Reactive Protein Total Protein Albumin LDL Cholesterol Direct Urine Creatinine Urine Total Protein Salicylates Acetaminophen Crossmatch 10/31/21 10/31/21 10/31/21 16:07 16:35 17:45 WBC RBC Hgb Hct MCH RDW Plt Count Lymph % (Auto) [place] % (Auto) Lymph # (Auto) [place] # (Auto) Seg Neutrophils % Seg Neuts % (Manual) Lymphocytes % (Manual) Monocytes % (Manual) Basophils % (Manual) Nucleated RBC % Seg Neutrophils # Seg Neutrophils # Man Lymphocytes # (Manual) Monocytes # (Manual) Eosinophils # (Manual) Basophils # (Manual) PT INR APTT D-Dimer Heparin Anti-Xa Level ABG pH 7.267 L ABG pO2 58.3 L ABG HCO3 ABG O2 Saturation 88.3 L ABG Base Excess -5.9 L ABG Hemoglobin 10.1 L Oxyhemoglobin 86.5 L Sodium Potassium Chloride Carbon Dioxide BUN Creatinine Glucose POC Glucose 115 H Hemoglobin A1c Lactic Acid Calcium Phosphorus Magnesium Ferritin AST ALT Alkaline Phosphatase Lactate Dehydrogenase Troponin T C-Reactive Protein Total Protein Albumin LDL Cholesterol Direct Urine Creatinine 383.6 H Urine Total Protein Salicylates Acetaminophen Crossmatch 11/01/21 11/01/21 11/01/21 00:06 05:08 06:00 WBC 12.6 H RBC 3.43 L Hgb 8.9 L Hct 28.7 L MCH 26 L RDW 15.7 H Plt Count 130 L Lymph % (Auto) [place] % (Auto) Lymph # (Auto) [place] # (Auto) Seg Neutrophils % Seg Neuts % (Manual) Lymphocytes % (Manual) Monocytes % (Manual) Basophils % (Manual) Nucleated RBC % Seg Neutrophils # Seg Neutrophils # Man Lymphocytes # (Manual) Monocytes # (Manual) Eosinophils # (Manual) Basophils # (Manual) PT INR APTT D-Dimer Heparin Anti-Xa Level ABG pH ABG pO2 ABG HCO3 ABG O2 Saturation ABG Base Excess ABG Hemoglobin Oxyhemoglobin Sodium Potassium Chloride Carbon Dioxide BUN Creatinine Glucose POC Glucose 114 H 120 H Hemoglobin A1c Lactic Acid Calcium Phosphorus Magnesium Ferritin AST ALT Alkaline Phosphatase Lactate Dehydrogenase Troponin T C-Reactive Protein Total Protein Albumin LDL Cholesterol Direct Urine Creatinine Urine Total Protein Salicylates Acetaminophen Crossmatch 11/01/21 11/01/21 11/01/21 06:00 11:43 14:00 WBC RBC Hgb Hct MCH RDW Plt Count Lymph % (Auto) [place] % (Auto) Lymph # (Auto) [place] # (Auto) Seg Neutrophils % Seg Neuts % (Manual) Lymphocytes % (Manual) Monocytes % (Manual) Basophils % (Manual) Nucleated RBC % Seg Neutrophils # Seg Neutrophils # Man Lymphocytes # (Manual) Monocytes # (Manual) Eosinophils # (Manual) Basophils # (Manual) PT INR APTT D-Dimer Heparin Anti-Xa Level ABG pH 7.349 L ABG pO2 75.6 L ABG HCO3 ABG O2 Saturation ABG Base Excess -3.9 L ABG Hemoglobin 9.8 L Oxyhemoglobin 93.5 L Sodium Potassium Chloride 114.1 H Carbon Dioxide 20 L BUN 33 H Creatinine Glucose 131 H POC Glucose 151 H Hemoglobin A1c Lactic Acid Calcium 7.7 L Phosphorus Magnesium Ferritin AST 79 H ALT 259 H Alkaline Phosphatase Lactate Dehydrogenase Troponin T C-Reactive Protein Total Protein 5.5 L Albumin 2.7 L LDL Cholesterol Direct Urine Creatinine Urine Total Protein Salicylates Acetaminophen Crossmatch 11/01/21 11/01/21 11/02/21 16:45 22:55 05:12 WBC RBC Hgb Hct MCH RDW Plt Count Lymph % (Auto) [place] % (Auto) Lymph # (Auto) [place] # (Auto) Seg Neutrophils % Seg Neuts % (Manual) Lymphocytes % (Manual) Monocytes % (Manual) Basophils % (Manual) Nucleated RBC % Seg Neutrophils # Seg Neutrophils # Man Lymphocytes # (Manual) Monocytes # (Manual) Eosinophils # (Manual) Basophils # (Manual) PT INR APTT D-Dimer Heparin Anti-Xa Level ABG pH ABG pO2 ABG HCO3 ABG O2 Saturation ABG Base Excess ABG Hemoglobin Oxyhemoglobin Sodium Potassium Chloride Carbon Dioxide BUN Creatinine Glucose POC Glucose 119 H 129 H 140 H Hemoglobin A1c Lactic Acid Calcium Phosphorus Magnesium Ferritin AST ALT Alkaline Phosphatase Lactate Dehydrogenase Troponin T C-Reactive Protein Total Protein Albumin LDL Cholesterol Direct Urine Creatinine Urine Total Protein Salicylates Acetaminophen Crossmatch 11/02/21 11/02/21 11/02/21 05:35 05:35 09:35 WBC 13.5 H RBC 3.60 L Hgb 9.7 L Hct MCH 27 L RDW 15.7 H Plt Count Lymph % (Auto) [place] % (Auto) Lymph # (Auto) [place] # (Auto) Seg Neutrophils % Seg Neuts % (Manual) Lymphocytes % (Manual) Monocytes % (Manual) Basophils % (Manual) Nucleated RBC % Seg Neutrophils # Seg Neutrophils # Man Lymphocytes # (Manual) Monocytes # (Manual) Eosinophils # (Manual) Basophils # (Manual) PT INR APTT D-Dimer Heparin Anti-Xa Level ABG pH 7.208 L ABG pO2 75.9 L ABG HCO3 ABG O2 Saturation 93.6 L ABG Base Excess -4.3 L ABG Hemoglobin 9.1 L Oxyhemoglobin 91.6 L Sodium Potassium 5.2 H D Chloride 112.6 H Carbon Dioxide BUN 32 H Creatinine Glucose 152 H POC Glucose Hemoglobin A1c Lactic Acid Calcium 8.2 L Phosphorus Magnesium 2.70 H Ferritin AST ALT Alkaline Phosphatase Lactate Dehydrogenase Troponin T C-Reactive Protein Total Protein Albumin LDL Cholesterol Direct Urine Creatinine Urine Total Protein Salicylates Acetaminophen Crossmatch 11/02/21 11/02/21 11/02/21 11:44 17:13 23:43 WBC RBC Hgb Hct MCH RDW Plt Count Lymph % (Auto) [place] % (Auto) Lymph # (Auto) [place] # (Auto) Seg Neutrophils % Seg Neuts % (Manual) Lymphocytes % (Manual) Monocytes % (Manual) Basophils % (Manual) Nucleated RBC % Seg Neutrophils # Seg Neutrophils # Man Lymphocytes # (Manual) Monocytes # (Manual) Eosinophils # (Manual) Basophils # (Manual) PT INR APTT D-Dimer Heparin Anti-Xa Level ABG pH ABG pO2 ABG HCO3 ABG O2 Saturation ABG Base Excess ABG Hemoglobin Oxyhemoglobin Sodium Potassium Chloride Carbon Dioxide BUN Creatinine Glucose POC Glucose 173 H 148 H 137 H Hemoglobin A1c Lactic Acid Calcium Phosphorus Magnesium Ferritin AST ALT Alkaline Phosphatase Lactate Dehydrogenase Troponin T C-Reactive Protein Total Protein Albumin LDL Cholesterol Direct Urine Creatinine Urine Total Protein Salicylates Acetaminophen Crossmatch 11/03/21 11/03/21 11/03/21 04:59 06:00 06:00 WBC RBC 3.43 L Hgb 9.1 L Hct 29.0 L MCH 26 L RDW 16.4 H Plt Count Lymph % (Auto) [place] % (Auto) Lymph # (Auto) [place] # (Auto) Seg Neutrophils % Seg Neuts % (Manual) Lymphocytes % (Manual) Monocytes % (Manual) Basophils % (Manual) Nucleated RBC % Seg Neutrophils # Seg Neutrophils # Man Lymphocytes # (Manual) Monocytes # (Manual) Eosinophils # (Manual) Basophils # (Manual) PT INR APTT D-Dimer Heparin Anti-Xa Level 0.17 L ABG pH ABG pO2 ABG HCO3 ABG O2 Saturation ABG Base Excess ABG Hemoglobin Oxyhemoglobin Sodium Potassium Chloride Carbon Dioxide BUN Creatinine Glucose POC Glucose 167 H Hemoglobin A1c Lactic Acid Calcium Phosphorus Magnesium Ferritin AST ALT Alkaline Phosphatase Lactate Dehydrogenase Troponin T C-Reactive Protein Total Protein Albumin LDL Cholesterol Direct Urine Creatinine Urine Total Protein Salicylates Acetaminophen Crossmatch 11/03/21 11/03/21 11/03/21 06:00 09:20 11:58 WBC RBC Hgb Hct MCH RDW Plt Count Lymph % (Auto) [place] % (Auto) Lymph # (Auto) [place] # (Auto) Seg Neutrophils % Seg Neuts % (Manual) Lymphocytes % (Manual) Monocytes % (Manual) Basophils % (Manual) Nucleated RBC % Seg Neutrophils # Seg Neutrophils # Man Lymphocytes # (Manual) Monocytes # (Manual) Eosinophils # (Manual) Basophils # (Manual) PT INR APTT D-Dimer Heparin Anti-Xa Level ABG pH 7.274 L ABG pO2 75.6 L ABG HCO3 ABG O2 Saturation 94.9 L ABG Base Excess -2.5 L ABG Hemoglobin 9.3 L Oxyhemoglobin 92.9 L Sodium 149 H Potassium Chloride 117.5 H Carbon Dioxide BUN 32 H Creatinine Glucose 173 H POC Glucose 192 H Hemoglobin A1c Lactic Acid Calcium 8.1 L Phosphorus Magnesium Ferritin AST ALT Alkaline Phosphatase Lactate Dehydrogenase Troponin T C-Reactive Protein Total Protein Albumin LDL Cholesterol Direct Urine Creatinine Urine Total Protein Salicylates Acetaminophen Crossmatch 11/03/21 11/03/21 11/04/21 18:22 Unknown 00:09 WBC RBC Hgb Hct MCH RDW Plt Count Lymph % (Auto) [place] % (Auto) Lymph # (Auto) [place] # (Auto) Seg Neutrophils % Seg Neuts % (Manual) Lymphocytes % (Manual) Monocytes % (Manual) Basophils % (Manual) Nucleated RBC % Seg Neutrophils # Seg Neutrophils # Man Lymphocytes # (Manual) Monocytes # (Manual) Eosinophils # (Manual) Basophils # (Manual) PT INR APTT D-Dimer Heparin Anti-Xa Level 0.29 L ABG pH ABG pO2 ABG HCO3 ABG O2 Saturation ABG Base Excess ABG Hemoglobin Oxyhemoglobin Sodium Potassium Chloride Carbon Dioxide BUN Creatinine Glucose POC Glucose 178 H 221 H Hemoglobin A1c Lactic Acid Calcium Phosphorus Magnesium Ferritin AST ALT Alkaline Phosphatase Lactate Dehydrogenase Troponin T C-Reactive Protein Total Protein Albumin LDL Cholesterol Direct Urine Creatinine Urine Total Protein Salicylates Acetaminophen Crossmatch 11/04/21 11/04/21 11/04/21 05:09 09:40 09:40 WBC 16.8 H RBC Hgb Hct MCH 27 L RDW 16.5 H Plt Count Lymph % (Auto) [place] % (Auto) Lymph # (Auto) [place] # (Auto) Seg Neutrophils % Seg Neuts % (Manual) Lymphocytes % (Manual) Monocytes % (Manual) Basophils % (Manual) Nucleated RBC % Seg Neutrophils # Seg Neutrophils # Man Lymphocytes # (Manual) Monocytes # (Manual) Eosinophils # (Manual) Basophils # (Manual) PT INR APTT D-Dimer Heparin Anti-Xa Level ABG pH ABG pO2 ABG HCO3 ABG O2 Saturation ABG Base Excess ABG Hemoglobin Oxyhemoglobin Sodium Potassium 5.9 H Chloride 108.5 H Carbon Dioxide BUN 54 H Creatinine 1.8 H Glucose 198 H POC Glucose 182 H Hemoglobin A1c Lactic Acid Calcium Phosphorus Magnesium 3.00 H Ferritin AST ALT Alkaline Phosphatase Lactate Dehydrogenase Troponin T C-Reactive Protein Total Protein Albumin LDL Cholesterol Direct Urine Creatinine Urine Total Protein Salicylates Acetaminophen Crossmatch 11/04/21 11/04/21 11/04/21 12:13 13:34 14:05 WBC RBC Hgb Hct MCH RDW Plt Count Lymph % (Auto) [place] % (Auto) Lymph # (Auto) [place] # (Auto) Seg Neutrophils % Seg Neuts % (Manual) Lymphocytes % (Manual) Monocytes % (Manual) Basophils % (Manual) Nucleated RBC % Seg Neutrophils # Seg Neutrophils # Man Lymphocytes # (Manual) Monocytes # (Manual) Eosinophils # (Manual) Basophils # (Manual) PT INR APTT D-Dimer Heparin Anti-Xa Level ABG pH 7.223 L ABG pO2 71.3 L ABG HCO3 ABG O2 Saturation 92.8 L ABG Base Excess ABG Hemoglobin 8.2 L Oxyhemoglobin 91.0 L Sodium Potassium Chloride Carbon Dioxide BUN Creatinine Glucose POC Glucose 184 H Hemoglobin A1c Lactic Acid Calcium Phosphorus Magnesium Ferritin AST ALT Alkaline Phosphatase Lactate Dehydrogenase Troponin T C-Reactive Protein Total Protein Albumin LDL Cholesterol Direct Urine Creatinine 184.6 H Urine Total Protein Salicylates Acetaminophen Crossmatch 11/04/21 11/04/21 11/05/21 18:02 Unknown 00:07 WBC RBC Hgb Hct MCH RDW Plt Count Lymph % (Auto) [place] % (Auto) Lymph # (Auto) [place] # (Auto) Seg Neutrophils % Seg Neuts % (Manual) Lymphocytes % (Manual) Monocytes % (Manual) Basophils % (Manual) Nucleated RBC % Seg Neutrophils # Seg Neutrophils # Man Lymphocytes # (Manual) Monocytes # (Manual) Eosinophils # (Manual) Basophils # (Manual) PT INR APTT D-Dimer Heparin Anti-Xa Level ABG pH ABG pO2 ABG HCO3 ABG O2 Saturation ABG Base Excess ABG Hemoglobin Oxyhemoglobin Sodium Potassium Chloride Carbon Dioxide BUN Creatinine Glucose POC Glucose 262 H 259 H Hemoglobin A1c Lactic Acid Calcium Phosphorus Magnesium Ferritin AST ALT Alkaline Phosphatase Lactate Dehydrogenase Troponin T C-Reactive Protein Total Protein Albumin LDL Cholesterol Direct Urine Creatinine 190.9 H Urine Total Protein 172 H Salicylates Acetaminophen Crossmatch 11/05/21 11/05/21 11/05/21 04:20 04:20 05:30 WBC 17.9 H RBC 3.64 L Hgb 9.7 L Hct MCH 27 L RDW 16.4 H Plt Count Lymph % (Auto) [place] % (Auto) Lymph # (Auto) [place] # (Auto) Seg Neutrophils % Seg Neuts % (Manual) Lymphocytes % (Manual) Monocytes % (Manual) Basophils % (Manual) Nucleated RBC % Seg Neutrophils # Seg Neutrophils # Man Lymphocytes # (Manual) Monocytes # (Manual) Eosinophils # (Manual) Basophils # (Manual) PT INR APTT D-Dimer Heparin Anti-Xa Level ABG pH ABG pO2 ABG HCO3 ABG O2 Saturation ABG Base Excess ABG Hemoglobin Oxyhemoglobin Sodium Potassium 5.6 H Chloride 108.4 H Carbon Dioxide BUN 71 H Creatinine 1.9 H Glucose 270 H POC Glucose 283 H Hemoglobin A1c Lactic Acid Calcium Phosphorus Magnesium Ferritin AST ALT Alkaline Phosphatase Lactate Dehydrogenase Troponin T C-Reactive Protein Total Protein Albumin LDL Cholesterol Direct Urine Creatinine Urine Total Protein Salicylates Acetaminophen Crossmatch 11/05/21 11/05/21 11/05/21 10:05 12:10 15:29 WBC RBC Hgb Hct MCH RDW Plt Count Lymph % (Auto) [place] % (Auto) Lymph # (Auto) [place] # (Auto) Seg Neutrophils % Seg Neuts % (Manual) Lymphocytes % (Manual) Monocytes % (Manual) Basophils % (Manual) Nucleated RBC % Seg Neutrophils # Seg Neutrophils # Man Lymphocytes # (Manual) Monocytes # (Manual) Eosinophils # (Manual) Basophils # (Manual) PT INR APTT D-Dimer Heparin Anti-Xa Level ABG pH 7.248 L ABG pO2 73.7 L ABG HCO3 26.2 H ABG O2 Saturation 93.1 L ABG Base Excess ABG Hemoglobin 8.9 L Oxyhemoglobin 91.4 L Sodium Potassium Chloride Carbon Dioxide BUN Creatinine Glucose POC Glucose 225 H 199 H Hemoglobin A1c Lactic Acid Calcium Phosphorus Magnesium Ferritin AST ALT Alkaline Phosphatase Lactate Dehydrogenase Troponin T C-Reactive Protein Total Protein Albumin LDL Cholesterol Direct Urine Creatinine Urine Total Protein Salicylates Acetaminophen Crossmatch 11/05/21 11/05/21 11/05/21 15:51 17:32 17:40 WBC RBC Hgb Hct MCH RDW Plt Count Lymph % (Auto) [place] % (Auto) Lymph # (Auto) [place] # (Auto) Seg Neutrophils % Seg Neuts % (Manual) Lymphocytes % (Manual) Monocytes % (Manual) Basophils % (Manual) Nucleated RBC % Seg Neutrophils # Seg Neutrophils # Man Lymphocytes # (Manual) Monocytes # (Manual) Eosinophils # (Manual) Basophils # (Manual) PT INR APTT D-Dimer Heparin Anti-Xa Level ABG pH ABG pO2 ABG HCO3 ABG O2 Saturation ABG Base Excess ABG Hemoglobin Oxyhemoglobin Sodium Potassium 5.2 H Chloride 107.8 H Carbon Dioxide BUN 79 H Creatinine 1.9 H Glucose 204 H POC Glucose 278 H 197 H Hemoglobin A1c Lactic Acid Calcium Phosphorus Magnesium Ferritin AST ALT Alkaline Phosphatase Lactate Dehydrogenase Troponin T C-Reactive Protein Total Protein Albumin LDL Cholesterol Direct Urine Creatinine Urine Total Protein Salicylates Acetaminophen Crossmatch 11/05/21 11/05/21 11/05/21 21:25 22:22 23:43 WBC RBC Hgb Hct MCH RDW Plt Count Lymph % (Auto) [place] % (Auto) Lymph # (Auto) [place] # (Auto) Seg Neutrophils % Seg Neuts % (Manual) Lymphocytes % (Manual) Monocytes % (Manual) Basophils % (Manual) Nucleated RBC % Seg Neutrophils # Seg Neutrophils # Man Lymphocytes # (Manual) Monocytes # (Manual) Eosinophils # (Manual) Basophils # (Manual) PT INR APTT D-Dimer Heparin Anti-Xa Level ABG pH ABG pO2 ABG HCO3 ABG O2 Saturation ABG Base Excess ABG Hemoglobin Oxyhemoglobin Sodium Potassium 5.3 H Chloride 109.2 H Carbon Dioxide BUN 81 H Creatinine 2.0 H Glucose 195 H POC Glucose 180 H 203 H Hemoglobin A1c Lactic Acid Calcium Phosphorus Magnesium Ferritin AST ALT Alkaline Phosphatase Lactate Dehydrogenase Troponin T C-Reactive Protein Total Protein Albumin LDL Cholesterol Direct Urine Creatinine Urine Total Protein Salicylates Acetaminophen Crossmatch 11/05/21 11/06/21 11/06/21 Unknown 02:35 05:09 WBC RBC Hgb Hct MCH RDW Plt Count Lymph % (Auto) [place] % (Auto) Lymph # (Auto) [place] # (Auto) Seg Neutrophils % Seg Neuts % (Manual) Lymphocytes % (Manual) Monocytes % (Manual) Basophils % (Manual) Nucleated RBC % Seg Neutrophils # Seg Neutrophils # Man Lymphocytes # (Manual) Monocytes # (Manual) Eosinophils # (Manual) Basophils # (Manual) PT INR APTT D-Dimer Heparin Anti-Xa Level ABG pH ABG pO2 ABG HCO3 ABG O2 Saturation ABG Base Excess ABG Hemoglobin Oxyhemoglobin Sodium 146 H Potassium 6.0 H Chloride 108.1 H 107.1 H Carbon Dioxide 21 L BUN 80 H 84 H Creatinine 2.0 H 2.0 H Glucose 238 H 235 H POC Glucose 215 H Hemoglobin A1c Lactic Acid Calcium Phosphorus Magnesium 2.80 H Ferritin AST ALT 77 H Alkaline Phosphatase Lactate Dehydrogenase Troponin T C-Reactive Protein Total Protein Albumin 3.0 L LDL Cholesterol Direct Urine Creatinine Urine Total Protein Salicylates Acetaminophen Crossmatch 11/06/21 11/06/21 11/06/21 05:40 08:07 08:07 WBC RBC Hgb Hct MCH RDW Plt Count Lymph % (Auto) [place] % (Auto) Lymph # (Auto) [place] # (Auto) Seg Neutrophils % Seg Neuts % (Manual) Lymphocytes % (Manual) Monocytes % (Manual) Basophils % (Manual) Nucleated RBC % Seg Neutrophils # Seg Neutrophils # Man Lymphocytes # (Manual) Monocytes # (Manual) Eosinophils # (Manual) Basophils # (Manual) PT INR APTT D-Dimer Heparin Anti-Xa Level 1.24 H ABG pH 7.311 L ABG pO2 72.8 L ABG HCO3 29.7 H ABG O2 Saturation 94.1 L ABG Base Excess ABG Hemoglobin 11.4 L Oxyhemoglobin 92.3 L Sodium Potassium 5.2 H Chloride Carbon Dioxide BUN 85 H Creatinine 2.3 H Glucose 236 H POC Glucose Hemoglobin A1c Lactic Acid Calcium Phosphorus Magnesium Ferritin AST ALT Alkaline Phosphatase Lactate Dehydrogenase Troponin T C-Reactive Protein Total Protein Albumin LDL Cholesterol Direct Urine Creatinine Urine Total Protein Salicylates Acetaminophen Crossmatch 11/06/21 11/06/21 11/06/21 12:14 12:57 14:28 WBC RBC Hgb Hct MCH RDW Plt Count Lymph % (Auto) [place] % (Auto) Lymph # (Auto) [place] # (Auto) Seg Neutrophils % Seg Neuts % (Manual) Lymphocytes % (Manual) Monocytes % (Manual) Basophils % (Manual) Nucleated RBC % Seg Neutrophils # Seg Neutrophils # Man Lymphocytes # (Manual) Monocytes # (Manual) Eosinophils # (Manual) Basophils # (Manual) PT INR APTT D-Dimer Heparin Anti-Xa Level ABG pH 7.282 L ABG pO2 72.6 L ABG HCO3 30.8 H ABG O2 Saturation 93.7 L ABG Base Excess 3.2 H ABG Hemoglobin 8.6 L Oxyhemoglobin 91.8 L Sodium Potassium Chloride Carbon Dioxide BUN 91 H Creatinine 2.6 H Glucose 259 H POC Glucose 225 H Hemoglobin A1c Lactic Acid Calcium Phosphorus Magnesium Ferritin AST ALT Alkaline Phosphatase Lactate Dehydrogenase Troponin T C-Reactive Protein Total Protein Albumin LDL Cholesterol Direct Urine Creatinine Urine Total Protein Salicylates Acetaminophen Crossmatch 11/06/21 11/06/21 11/06/21 17:28 19:20 21:30 WBC RBC Hgb Hct MCH RDW Plt Count Lymph % (Auto) [place] % (Auto) Lymph # (Auto) [place] # (Auto) Seg Neutrophils % Seg Neuts % (Manual) Lymphocytes % (Manual) Monocytes % (Manual) Basophils % (Manual) Nucleated RBC % Seg Neutrophils # Seg Neutrophils # Man Lymphocytes # (Manual) Monocytes # (Manual) Eosinophils # (Manual) Basophils # (Manual) PT INR APTT D-Dimer Heparin Anti-Xa Level 0.73 H ABG pH ABG pO2 ABG HCO3 ABG O2 Saturation ABG Base Excess ABG Hemoglobin Oxyhemoglobin Sodium Potassium Chloride Carbon Dioxide BUN 95 H Creatinine 2.9 H Glucose 233 H POC Glucose 206 H Hemoglobin A1c Lactic Acid Calcium Phosphorus Magnesium Ferritin AST ALT Alkaline Phosphatase Lactate Dehydrogenase Troponin T C-Reactive Protein Total Protein Albumin LDL Cholesterol Direct Urine Creatinine Urine Total Protein Salicylates Acetaminophen Crossmatch 11/06/21 11/07/21 11/07/21 22:56 05:06 06:30 WBC RBC Hgb Hct MCH RDW Plt Count Lymph % (Auto) [place] % (Auto) Lymph # (Auto) [place] # (Auto) Seg Neutrophils % Seg Neuts % (Manual) Lymphocytes % (Manual) Monocytes % (Manual) Basophils % (Manual) Nucleated RBC % Seg Neutrophils # Seg Neutrophils # Man Lymphocytes # (Manual) Monocytes # (Manual) Eosinophils # (Manual) Basophils # (Manual) PT INR APTT D-Dimer Heparin Anti-Xa Level ABG pH ABG pO2 ABG HCO3 ABG O2 Saturation ABG Base Excess ABG Hemoglobin Oxyhemoglobin Sodium 146 H Potassium Chloride Carbon Dioxide BUN 98 H Creatinine 2.8 H Glucose 202 H POC Glucose 215 H 172 H Hemoglobin A1c Lactic Acid Calcium Phosphorus 4.90 H D Magnesium 2.90 H Ferritin AST ALT Alkaline Phosphatase Lactate Dehydrogenase Troponin T C-Reactive Protein Total Protein Albumin LDL Cholesterol Direct Urine Creatinine Urine Total Protein Salicylates Acetaminophen Crossmatch 11/07/21 11/07/21 11/07/21 06:30 11:26 12:15 WBC 16.0 H RBC 3.06 L Hgb 8.2 L Hct 26.1 L MCH 27 L RDW 16.2 H Plt Count Lymph % (Auto) [place] % (Auto) Lymph # (Auto) [place] # (Auto) Seg Neutrophils % Seg Neuts % (Manual) 77.0 H Lymphocytes % (Manual) 11.0 L Monocytes % (Manual) Basophils % (Manual) Nucleated RBC % 2.0 H Seg Neutrophils # Seg Neutrophils # Man 12.3 H Lymphocytes # (Manual) Monocytes # (Manual) Eosinophils # (Manual) Basophils # (Manual) PT INR APTT D-Dimer Heparin Anti-Xa Level ABG pH 7.298 L ABG pO2 73.0 L ABG HCO3 33.3 H ABG O2 Saturation 94.4 L ABG Base Excess 5.8 H ABG Hemoglobin 8.2 L Oxyhemoglobin 92.7 L Sodium Potassium Chloride Carbon Dioxide BUN Creatinine Glucose POC Glucose 179 H Hemoglobin A1c Lactic Acid Calcium Phosphorus Magnesium Ferritin AST ALT Alkaline Phosphatase Lactate Dehydrogenase Troponin T C-Reactive Protein Total Protein Albumin LDL Cholesterol Direct Urine Creatinine Urine Total Protein Salicylates Acetaminophen Crossmatch 11/07/21 11/07/21 11/07/21 17:57 22:16 23:49 WBC RBC Hgb Hct MCH RDW Plt Count Lymph % (Auto) [place] % (Auto) Lymph # (Auto) [place] # (Auto) Seg Neutrophils % Seg Neuts % (Manual) Lymphocytes % (Manual) Monocytes % (Manual) Basophils % (Manual) Nucleated RBC % Seg Neutrophils # Seg Neutrophils # Man Lymphocytes # (Manual) Monocytes # (Manual) Eosinophils # (Manual) Basophils # (Manual) PT INR APTT D-Dimer Heparin Anti-Xa Level ABG pH ABG pO2 ABG HCO3 ABG O2 Saturation ABG Base Excess ABG Hemoglobin Oxyhemoglobin Sodium Potassium Chloride Carbon Dioxide BUN Creatinine Glucose POC Glucose 166 H 223 H 190 H Hemoglobin A1c Lactic Acid Calcium Phosphorus Magnesium Ferritin AST ALT Alkaline Phosphatase Lactate Dehydrogenase Troponin T C-Reactive Protein Total Protein Albumin LDL Cholesterol Direct Urine Creatinine Urine Total Protein Salicylates Acetaminophen Crossmatch 11/08/21 11/08/21 11/08/21 04:20 04:20 06:16 WBC 22.1 H RBC 3.01 L Hgb 8.1 L Hct 25.6 L MCH 27 L RDW 15.4 H Plt Count Lymph % (Auto) [place] % (Auto) Lymph # (Auto) [place] # (Auto) Seg Neutrophils % Seg Neuts % (Manual) Lymphocytes % (Manual) Monocytes % (Manual) Basophils % (Manual) Nucleated RBC % Seg Neutrophils # Seg Neutrophils # Man Lymphocytes # (Manual) Monocytes # (Manual) Eosinophils # (Manual) Basophils # (Manual) PT INR APTT D-Dimer Heparin Anti-Xa Level ABG pH ABG pO2 ABG HCO3 ABG O2 Saturation ABG Base Excess ABG Hemoglobin Oxyhemoglobin Sodium 151 H Potassium 3.1 L D Chloride 107.3 H Carbon Dioxide 31 H BUN 82 H Creatinine 1.8 H Glucose 232 H POC Glucose 198 H Hemoglobin A1c Lactic Acid Calcium 8.1 L Phosphorus Magnesium Ferritin AST ALT Alkaline Phosphatase Lactate Dehydrogenase Troponin T C-Reactive Protein Total Protein Albumin LDL Cholesterol Direct Urine Creatinine Urine Total Protein Salicylates Acetaminophen Crossmatch 11/08/21 11/08/21 11/08/21 11:38 12:00 18:29 WBC RBC Hgb Hct MCH RDW Plt Count Lymph % (Auto) [place] % (Auto) Lymph # (Auto) [place] # (Auto) Seg Neutrophils % Seg Neuts % (Manual) Lymphocytes % (Manual) Monocytes % (Manual) Basophils % (Manual) Nucleated RBC % Seg Neutrophils # Seg Neutrophils # Man Lymphocytes # (Manual) Monocytes # (Manual) Eosinophils # (Manual) Basophils # (Manual) PT INR APTT D-Dimer Heparin Anti-Xa Level ABG pH ABG pO2 ABG HCO3 ABG O2 Saturation ABG Base Excess ABG Hemoglobin Oxyhemoglobin Sodium Potassium 3.0 L Chloride Carbon Dioxide BUN Creatinine Glucose POC Glucose 190 H 211 H Hemoglobin A1c Lactic Acid Calcium Phosphorus Magnesium Ferritin AST ALT Alkaline Phosphatase Lactate Dehydrogenase Troponin T C-Reactive Protein Total Protein Albumin LDL Cholesterol Direct Urine Creatinine Urine Total Protein Salicylates Acetaminophen Crossmatch 11/08/21 11/08/21 11/09/21 21:34 21:40 00:36 WBC RBC Hgb Hct MCH RDW Plt Count Lymph % (Auto) [place] % (Auto) Lymph # (Auto) [place] # (Auto) Seg Neutrophils % Seg Neuts % (Manual) Lymphocytes % (Manual) Monocytes % (Manual) Basophils % (Manual) Nucleated RBC % Seg Neutrophils # Seg Neutrophils # Man Lymphocytes # (Manual) Monocytes # (Manual) Eosinophils # (Manual) Basophils # (Manual) PT INR APTT D-Dimer Heparin Anti-Xa Level ABG pH ABG pO2 ABG HCO3 ABG O2 Saturation ABG Base Excess ABG Hemoglobin Oxyhemoglobin Sodium 148 H Potassium 2.8 L* Chloride Carbon Dioxide 31 H BUN 68 H Creatinine 1.5 H Glucose 191 H POC Glucose 194 H 140 H Hemoglobin A1c Lactic Acid Calcium 8.2 L Phosphorus Magnesium Ferritin AST ALT Alkaline Phosphatase Lactate Dehydrogenase Troponin T C-Reactive Protein Total Protein Albumin LDL Cholesterol Direct Urine Creatinine Urine Total Protein Salicylates Acetaminophen Crossmatch 11/09/21 11/09/21 11/09/21 04:51 04:51 04:51 WBC 27.6 H RBC 3.18 L Hgb 8.4 L Hct 26.6 L MCH 27 L RDW 15.3 H Plt Count Lymph % (Auto) [place] % (Auto) Lymph # (Auto) [place] # (Auto) Seg Neutrophils % Seg Neuts % (Manual) Lymphocytes % (Manual) Monocytes % (Manual) Basophils % (Manual) Nucleated RBC % Seg Neutrophils # Seg Neutrophils # Man Lymphocytes # (Manual) Monocytes # (Manual) Eosinophils # (Manual) Basophils # (Manual) PT INR APTT D-Dimer Heparin Anti-Xa Level 0.18 L ABG pH ABG pO2 ABG HCO3 ABG O2 Saturation ABG Base Excess ABG Hemoglobin Oxyhemoglobin Sodium 148 H Potassium 2.7 L* Chloride Carbon Dioxide BUN 59 H Creatinine 1.4 H Glucose 143 H POC Glucose Hemoglobin A1c Lactic Acid Calcium 8.3 L Phosphorus Magnesium Ferritin AST ALT Alkaline Phosphatase Lactate Dehydrogenase Troponin T C-Reactive Protein Total Protein Albumin LDL Cholesterol Direct Urine Creatinine Urine Total Protein Salicylates Acetaminophen Crossmatch 11/09/21 11/09/21 11/09/21 05:52 08:45 11:00 WBC RBC Hgb Hct MCH RDW Plt Count Lymph % (Auto) [place] % (Auto) Lymph # (Auto) [place] # (Auto) Seg Neutrophils % Seg Neuts % (Manual) Lymphocytes % (Manual) Monocytes % (Manual) Basophils % (Manual) Nucleated RBC % Seg Neutrophils # Seg Neutrophils # Man Lymphocytes # (Manual) Monocytes # (Manual) Eosinophils # (Manual) Basophils # (Manual) PT INR APTT D-Dimer Heparin Anti-Xa Level ABG pH ABG pO2 73.2 L ABG HCO3 33.8 H ABG O2 Saturation ABG Base Excess 8.7 H ABG Hemoglobin 8.5 L Oxyhemoglobin 94.1 L Sodium Potassium Chloride Carbon Dioxide BUN Creatinine Glucose POC Glucose 166 H 136 H Hemoglobin A1c Lactic Acid Calcium Phosphorus Magnesium Ferritin AST ALT Alkaline Phosphatase Lactate Dehydrogenase Troponin T C-Reactive Protein Total Protein Albumin LDL Cholesterol Direct Urine Creatinine Urine Total Protein Salicylates Acetaminophen Crossmatch 11/09/21 11/09/21 11/09/21 15:48 16:10 20:31 WBC RBC Hgb Hct MCH RDW Plt Count Lymph % (Auto) [place] % (Auto) Lymph # (Auto) [place] # (Auto) Seg Neutrophils % Seg Neuts % (Manual) Lymphocytes % (Manual) Monocytes % (Manual) Basophils % (Manual) Nucleated RBC % Seg Neutrophils # Seg Neutrophils # Man Lymphocytes # (Manual) Monocytes # (Manual) Eosinophils # (Manual) Basophils # (Manual) PT INR APTT D-Dimer Heparin Anti-Xa Level ABG pH ABG pO2 ABG HCO3 ABG O2 Saturation ABG Base Excess ABG Hemoglobin Oxyhemoglobin Sodium Potassium 2.8 L* Chloride Carbon Dioxide 31 H BUN 53 H Creatinine 1.3 H Glucose 208 H POC Glucose 203 H 166 H Hemoglobin A1c Lactic Acid Calcium 7.9 L Phosphorus Magnesium Ferritin AST ALT Alkaline Phosphatase Lactate Dehydrogenase Troponin T C-Reactive Protein Total Protein Albumin LDL Cholesterol Direct Urine Creatinine Urine Total Protein Salicylates Acetaminophen Crossmatch 11/09/21 11/09/21 11/09/21 21:30 23:16 Unknown WBC RBC Hgb Hct MCH RDW Plt Count Lymph % (Auto) [place] % (Auto) Lymph # (Auto) [place] # (Auto) Seg Neutrophils % Seg Neuts % (Manual) Lymphocytes % (Manual) Monocytes % (Manual) Basophils % (Manual) Nucleated RBC % Seg Neutrophils # Seg Neutrophils # Man Lymphocytes # (Manual) Monocytes # (Manual) Eosinophils # (Manual) Basophils # (Manual) PT INR APTT D-Dimer Heparin Anti-Xa Level 0.24 L ABG pH ABG pO2 ABG HCO3 ABG O2 Saturation ABG Base Excess ABG Hemoglobin Oxyhemoglobin Sodium Potassium Chloride Carbon Dioxide BUN 52 H Creatinine 1.4 H Glucose 185 H POC Glucose 172 H Hemoglobin A1c Lactic Acid Calcium 7.8 L Phosphorus Magnesium Ferritin AST ALT Alkaline Phosphatase Lactate Dehydrogenase Troponin T C-Reactive Protein Total Protein Albumin LDL Cholesterol Direct Urine Creatinine Urine Total Protein Salicylates Acetaminophen Crossmatch 11/10/21 11/10/21 11/10/21 02:00 04:17 04:17 WBC 24.5 H RBC 2.75 L Hgb 7.5 L Hct 22.9 L MCH 27 L RDW Plt Count Lymph % (Auto) [place] % (Auto) Lymph # (Auto) [place] # (Auto) Seg Neutrophils % Seg Neuts % (Manual) Lymphocytes % (Manual) Monocytes % (Manual) Basophils % (Manual) Nucleated RBC % Seg Neutrophils # Seg Neutrophils # Man Lymphocytes # (Manual) Monocytes # (Manual) Eosinophils # (Manual) Basophils # (Manual) PT INR APTT D-Dimer Heparin Anti-Xa Level 0.26 L ABG pH ABG pO2 ABG HCO3 ABG O2 Saturation ABG Base Excess ABG Hemoglobin Oxyhemoglobin Sodium Potassium 2.9 L* Chloride Carbon Dioxide 35 H BUN 48 H Creatinine Glucose 212 H POC Glucose Hemoglobin A1c Lactic Acid Calcium 8.1 L Phosphorus Magnesium Ferritin AST ALT Alkaline Phosphatase Lactate Dehydrogenase Troponin T C-Reactive Protein Total Protein Albumin LDL Cholesterol Direct Urine Creatinine Urine Total Protein Salicylates Acetaminophen Crossmatch 11/10/21 11/10/21 11/10/21 05:01 08:39 11:03 WBC RBC Hgb Hct MCH RDW Plt Count Lymph % (Auto) [place] % (Auto) Lymph # (Auto) [place] # (Auto) Seg Neutrophils % Seg Neuts % (Manual) Lymphocytes % (Manual) Monocytes % (Manual) Basophils % (Manual) Nucleated RBC % Seg Neutrophils # Seg Neutrophils # Man Lymphocytes # (Manual) Monocytes # (Manual) Eosinophils # (Manual) Basophils # (Manual) PT INR APTT D-Dimer Heparin Anti-Xa Level 0.12 L ABG pH ABG pO2 ABG HCO3 ABG O2 Saturation ABG Base Excess ABG Hemoglobin Oxyhemoglobin Sodium Potassium Chloride Carbon Dioxide BUN Creatinine Glucose POC Glucose 203 H 152 H Hemoglobin A1c Lactic Acid Calcium Phosphorus Magnesium Ferritin AST ALT Alkaline Phosphatase Lactate Dehydrogenase Troponin T C-Reactive Protein Total Protein Albumin LDL Cholesterol Direct Urine Creatinine Urine Total Protein Salicylates Acetaminophen Crossmatch 11/10/21 11/10/21 11/10/21 12:45 15:43 21:05 WBC RBC Hgb Hct MCH RDW Plt Count Lymph % (Auto) [place] % (Auto) Lymph # (Auto) [place] # (Auto) Seg Neutrophils % Seg Neuts % (Manual) Lymphocytes % (Manual) Monocytes % (Manual) Basophils % (Manual) Nucleated RBC % Seg Neutrophils # Seg Neutrophils # Man Lymphocytes # (Manual) Monocytes # (Manual) Eosinophils # (Manual) Basophils # (Manual) PT INR APTT D-Dimer Heparin Anti-Xa Level ABG pH ABG pO2 ABG HCO3 ABG O2 Saturation ABG Base Excess ABG Hemoglobin Oxyhemoglobin Sodium 146 H Potassium 3.3 L Chloride Carbon Dioxide 31 H BUN 43 H Creatinine Glucose 155 H POC Glucose 139 H 139 H Hemoglobin A1c Lactic Acid Calcium 8.3 L Phosphorus Magnesium Ferritin AST ALT Alkaline Phosphatase Lactate Dehydrogenase Troponin T C-Reactive Protein Total Protein Albumin LDL Cholesterol Direct Urine Creatinine Urine Total Protein Salicylates Acetaminophen Crossmatch 11/10/21 11/11/21 11/11/21 23:25 03:49 03:49 WBC 22.1 H RBC 2.69 L Hgb 7.2 L Hct 22.7 L MCH 27 L RDW Plt Count Lymph % (Auto) [place] % (Auto) Lymph # (Auto) [place] # (Auto) Seg Neutrophils % Seg Neuts % (Manual) Lymphocytes % (Manual) Monocytes % (Manual) Basophils % (Manual) Nucleated RBC % Seg Neutrophils # Seg Neutrophils # Man Lymphocytes # (Manual) Monocytes # (Manual) Eosinophils # (Manual) Basophils # (Manual) PT INR APTT D-Dimer Heparin Anti-Xa Level ABG pH ABG pO2 ABG HCO3 ABG O2 Saturation ABG Base Excess ABG Hemoglobin Oxyhemoglobin Sodium Potassium Chloride Carbon Dioxide 32 H BUN 44 H Creatinine 1.3 H Glucose 173 H POC Glucose 146 H Hemoglobin A1c Lactic Acid Calcium Phosphorus Magnesium Ferritin AST ALT Alkaline Phosphatase Lactate Dehydrogenase Troponin T C-Reactive Protein Total Protein Albumin LDL Cholesterol Direct Urine Creatinine Urine Total Protein Salicylates Acetaminophen Crossmatch 11/11/21 11/11/21 11/11/21 05:03 10:50 11:32 WBC RBC Hgb Hct MCH RDW Plt Count Lymph % (Auto) [place] % (Auto) Lymph # (Auto) [place] # (Auto) Seg Neutrophils % Seg Neuts % (Manual) Lymphocytes % (Manual) Monocytes % (Manual) Basophils % (Manual) Nucleated RBC % Seg Neutrophils # Seg Neutrophils # Man Lymphocytes # (Manual) Monocytes # (Manual) Eosinophils # (Manual) Basophils # (Manual) PT INR APTT D-Dimer Heparin Anti-Xa Level ABG pH ABG pO2 ABG HCO3 ABG O2 Saturation ABG Base Excess ABG Hemoglobin Oxyhemoglobin Sodium Potassium Chloride Carbon Dioxide BUN Creatinine Glucose POC Glucose 152 H 129 H 133 H Hemoglobin A1c Lactic Acid Calcium Phosphorus Magnesium Ferritin AST ALT Alkaline Phosphatase Lactate Dehydrogenase Troponin T C-Reactive Protein Total Protein Albumin LDL Cholesterol Direct Urine Creatinine Urine Total Protein Salicylates Acetaminophen Crossmatch 11/11/21 11/11/21 11/11/21 13:53 16:31 17:13 WBC RBC Hgb Hct MCH RDW Plt Count Lymph % (Auto) [place] % (Auto) Lymph # (Auto) [place] # (Auto) Seg Neutrophils % Seg Neuts % (Manual) Lymphocytes % (Manual) Monocytes % (Manual) Basophils % (Manual) Nucleated RBC % Seg Neutrophils # Seg Neutrophils # Man Lymphocytes # (Manual) Monocytes # (Manual) Eosinophils # (Manual) Basophils # (Manual) PT INR APTT D-Dimer Heparin Anti-Xa Level ABG pH 7.475 H ABG pO2 64.1 L ABG HCO3 32.4 H ABG O2 Saturation ABG Base Excess 8.0 H ABG Hemoglobin 7.6 L Oxyhemoglobin 94.0 L Sodium Potassium Chloride Carbon Dioxide BUN Creatinine Glucose POC Glucose 116 H 125 H Hemoglobin A1c Lactic Acid Calcium Phosphorus Magnesium Ferritin AST ALT Alkaline Phosphatase Lactate Dehydrogenase Troponin T C-Reactive Protein Total Protein Albumin LDL Cholesterol Direct Urine Creatinine Urine Total Protein Salicylates Acetaminophen Crossmatch 11/11/21 11/11/21 11/12/21 20:40 23:35 03:30 WBC 17.7 H RBC 2.37 L Hgb 6.3 L Hct 20.0 L MCH 27 L RDW 15.5 H Plt Count Lymph % (Auto) [place] % (Auto) Lymph # (Auto) [place] # (Auto) Seg Neutrophils % Seg Neuts % (Manual) Lymphocytes % (Manual) Monocytes % (Manual) Basophils % (Manual) Nucleated RBC % Seg Neutrophils # Seg Neutrophils # Man Lymphocytes # (Manual) Monocytes # (Manual) Eosinophils # (Manual) Basophils # (Manual) PT INR APTT D-Dimer Heparin Anti-Xa Level 0.26 L ABG pH ABG pO2 ABG HCO3 ABG O2 Saturation ABG Base Excess ABG Hemoglobin Oxyhemoglobin Sodium Potassium Chloride Carbon Dioxide BUN Creatinine Glucose POC Glucose 118 H Hemoglobin A1c Lactic Acid Calcium Phosphorus Magnesium Ferritin AST ALT Alkaline Phosphatase Lactate Dehydrogenase Troponin T C-Reactive Protein Total Protein Albumin LDL Cholesterol Direct Urine Creatinine Urine Total Protein Salicylates Acetaminophen Crossmatch 11/12/21 11/12/21 11/12/21 03:30 04:15 11:53 WBC RBC Hgb Hct MCH RDW Plt Count Lymph % (Auto) [place] % (Auto) Lymph # (Auto) [place] # (Auto) Seg Neutrophils % Seg Neuts % (Manual) Lymphocytes % (Manual) Monocytes % (Manual) Basophils % (Manual) Nucleated RBC % Seg Neutrophils # Seg Neutrophils # Man Lymphocytes # (Manual) Monocytes # (Manual) Eosinophils # (Manual) Basophils # (Manual) PT INR APTT D-Dimer Heparin Anti-Xa Level ABG pH ABG pO2 ABG HCO3 ABG O2 Saturation ABG Base Excess ABG Hemoglobin Oxyhemoglobin Sodium Potassium Chloride Carbon Dioxide 33 H BUN 38 H Creatinine 1.3 H Glucose 102 H POC Glucose 62 L Hemoglobin A1c Lactic Acid Calcium 8.2 L Phosphorus Magnesium Ferritin AST ALT Alkaline Phosphatase Lactate Dehydrogenase Troponin T C-Reactive Protein Total Protein Albumin LDL Cholesterol Direct Urine Creatinine Urine Total Protein Salicylates Acetaminophen Crossmatch See Detail 11/12/21 11/12/21 11/12/21 17:20 19:14 23:11 WBC RBC Hgb 6.2 L Hct 19.5 L* MCH RDW Plt Count Lymph % (Auto) [place] % (Auto) Lymph # (Auto) [place] # (Auto) Seg Neutrophils % Seg Neuts % (Manual) Lymphocytes % (Manual) Monocytes % (Manual) Basophils % (Manual) Nucleated RBC % Seg Neutrophils # Seg Neutrophils # Man Lymphocytes # (Manual) Monocytes # (Manual) Eosinophils # (Manual) Basophils # (Manual) PT INR APTT D-Dimer Heparin Anti-Xa Level ABG pH ABG pO2 ABG HCO3 ABG O2 Saturation ABG Base Excess ABG Hemoglobin Oxyhemoglobin Sodium Potassium Chloride Carbon Dioxide BUN Creatinine Glucose POC Glucose 115 H 131 H Hemoglobin A1c Lactic Acid Calcium Phosphorus Magnesium Ferritin AST ALT Alkaline Phosphatase Lactate Dehydrogenase Troponin T C-Reactive Protein Total Protein Albumin LDL Cholesterol Direct Urine Creatinine Urine Total Protein Salicylates Acetaminophen Crossmatch 11/13/21 11/13/21 11/13/21 00:13 04:17 04:17 WBC 23.8 H RBC 2.84 L Hgb 7.4 L 7.8 L Hct 23.3 L 24.9 L MCH 27 L RDW 15.4 H Plt Count Lymph % (Auto) [place] % (Auto) Lymph # (Auto) [place] # (Auto) Seg Neutrophils % Seg Neuts % (Manual) Lymphocytes % (Manual) Monocytes % (Manual) Basophils % (Manual) Nucleated RBC % Seg Neutrophils # Seg Neutrophils # Man Lymphocytes # (Manual) Monocytes # (Manual) Eosinophils # (Manual) Basophils # (Manual) PT INR APTT D-Dimer Heparin Anti-Xa Level ABG pH ABG pO2 ABG HCO3 ABG O2 Saturation ABG Base Excess ABG Hemoglobin Oxyhemoglobin Sodium 146 H Potassium Chloride Carbon Dioxide BUN 44 H Creatinine 1.6 H Glucose 144 H POC Glucose Hemoglobin A1c Lactic Acid Calcium 7.9 L Phosphorus 5.10 H D Magnesium Ferritin AST ALT Alkaline Phosphatase Lactate Dehydrogenase Troponin T C-Reactive Protein Total Protein Albumin LDL Cholesterol Direct Urine Creatinine Urine Total Protein Salicylates Acetaminophen Crossmatch 0211/13/21 11/13/21 05:52 10:54 15:57 WBC RBC Hgb Hct MCH RDW Plt Count Lymph % (Auto) [place] % (Auto) Lymph # (Auto) [place] # (Auto) Seg Neutrophils % Seg Neuts % (Manual) Lymphocytes % (Manual) Monocytes % (Manual) Basophils % (Manual) Nucleated RBC % Seg Neutrophils # Seg Neutrophils # Man Lymphocytes # (Manual) Monocytes # (Manual) Eosinophils # (Manual) Basophils # (Manual) PT INR APTT D-Dimer Heparin Anti-Xa Level ABG pH ABG pO2 ABG HCO3 ABG O2 Saturation ABG Base Excess ABG Hemoglobin Oxyhemoglobin Sodium Potassium Chloride Carbon Dioxide BUN Creatinine Glucose POC Glucose 123 H 147 H 207 H Hemoglobin A1c Lactic Acid Calcium Phosphorus Magnesium Ferritin AST ALT Alkaline Phosphatase Lactate Dehydrogenase Troponin T C-Reactive Protein Total Protein Albumin LDL Cholesterol Direct Urine Creatinine Urine Total Protein Salicylates Acetaminophen Crossmatch 11/13/21 11/13/21 11/14/21 16:01 23:18 04:55 WBC 23.9 H RBC 2.86 L Hgb 6.5 L 8.3 L Hct 20.3 L 24.5 L MCH RDW Plt Count Lymph % (Auto) [place] % (Auto) Lymph # (Auto) [place] # (Auto) Seg Neutrophils % Seg Neuts % (Manual) Lymphocytes % (Manual) Monocytes % (Manual) Basophils % (Manual) Nucleated RBC % Seg Neutrophils # Seg Neutrophils # Man Lymphocytes # (Manual) Monocytes # (Manual) Eosinophils # (Manual) Basophils # (Manual) PT INR APTT D-Dimer Heparin Anti-Xa Level ABG pH ABG pO2 ABG HCO3 ABG O2 Saturation ABG Base Excess ABG Hemoglobin Oxyhemoglobin Sodium Potassium Chloride Carbon Dioxide BUN Creatinine Glucose POC Glucose 209 H Hemoglobin A1c Lactic Acid Calcium Phosphorus Magnesium Ferritin AST ALT Alkaline Phosphatase Lactate Dehydrogenase Troponin T C-Reactive Protein Total Protein Albumin LDL Cholesterol Direct Urine Creatinine Urine Total Protein Salicylates Acetaminophen Crossmatch 11/14/21 11/14/21 11/14/21 04:55 05:09 11:35 WBC RBC Hgb Hct MCH RDW Plt Count Lymph % (Auto) [place] % (Auto) Lymph # (Auto) [place] # (Auto) Seg Neutrophils % Seg Neuts % (Manual) Lymphocytes % (Manual) Monocytes % (Manual) Basophils % (Manual) Nucleated RBC % Seg Neutrophils # Seg Neutrophils # Man Lymphocytes # (Manual) Monocytes # (Manual) Eosinophils # (Manual) Basophils # (Manual) PT INR APTT D-Dimer Heparin Anti-Xa Level ABG pH ABG pO2 ABG HCO3 ABG O2 Saturation ABG Base Excess ABG Hemoglobin Oxyhemoglobin Sodium 148 H Potassium Chloride 109.0 H Carbon Dioxide BUN 42 H Creatinine 1.6 H Glucose 184 H POC Glucose 169 H 154 H Hemoglobin A1c Lactic Acid Calcium 8.0 L Phosphorus Magnesium Ferritin AST ALT Alkaline Phosphatase Lactate Dehydrogenase Troponin T C-Reactive Protein Total Protein Albumin LDL Cholesterol Direct Urine Creatinine Urine Total Protein Salicylates Acetaminophen Crossmatch 11/14/21 11/14/21 11/15/21 16:57 23:11 04:36 WBC RBC Hgb Hct MCH RDW Plt Count Lymph % (Auto) [place] % (Auto) Lymph # (Auto) [place] # (Auto) Seg Neutrophils % Seg Neuts % (Manual) Lymphocytes % (Manual) Monocytes % (Manual) Basophils % (Manual) Nucleated RBC % Seg Neutrophils # Seg Neutrophils # Man Lymphocytes # (Manual) Monocytes # (Manual) Eosinophils # (Manual) Basophils # (Manual) PT INR APTT D-Dimer Heparin Anti-Xa Level ABG pH ABG pO2 ABG HCO3 ABG O2 Saturation ABG Base Excess ABG Hemoglobin Oxyhemoglobin Sodium 151 H Potassium Chloride 111.2 H Carbon Dioxide BUN 36 H Creatinine 1.3 H Glucose 136 H POC Glucose 124 H 118 H Hemoglobin A1c Lactic Acid Calcium 8.1 L Phosphorus Magnesium Ferritin AST ALT Alkaline Phosphatase Lactate Dehydrogenase Troponin T C-Reactive Protein Total Protein Albumin LDL Cholesterol Direct Urine Creatinine Urine Total Protein Salicylates Acetaminophen Crossmatch 11/15/21 11/15/21 11/16/21 11:18 21:49 00:15 WBC RBC Hgb Hct MCH RDW Plt Count Lymph % (Auto) [place] % (Auto) Lymph # (Auto) [place] # (Auto) Seg Neutrophils % Seg Neuts % (Manual) Lymphocytes % (Manual) Monocytes % (Manual) Basophils % (Manual) Nucleated RBC % Seg Neutrophils # Seg Neutrophils # Man Lymphocytes # (Manual) Monocytes # (Manual) Eosinophils # (Manual) Basophils # (Manual) PT INR APTT D-Dimer Heparin Anti-Xa Level ABG pH ABG pO2 ABG HCO3 ABG O2 Saturation ABG Base Excess ABG Hemoglobin Oxyhemoglobin Sodium Potassium Chloride Carbon Dioxide BUN Creatinine Glucose POC Glucose 154 H 154 H 146 H Hemoglobin A1c Lactic Acid Calcium Phosphorus Magnesium Ferritin AST ALT Alkaline Phosphatase Lactate Dehydrogenase Troponin T C-Reactive Protein Total Protein Albumin LDL Cholesterol Direct Urine Creatinine Urine Total Protein Salicylates Acetaminophen Crossmatch 11/16/21 11/16/21 11/16/21 05:11 05:11 05:37 WBC 18.2 H RBC 2.92 L Hgb 8.3 L Hct 26.1 L MCH RDW 15.8 H Plt Count Lymph % (Auto) 6.3 L [place] % (Auto) 10.2 H Lymph # (Auto) [place] # (Auto) 1.9 H Seg Neutrophils % 81.7 H Seg Neuts % (Manual) Lymphocytes % (Manual) Monocytes % (Manual) Basophils % (Manual) Nucleated RBC % Seg Neutrophils # 14.9 H Seg Neutrophils # Man Lymphocytes # (Manual) Monocytes # (Manual) Eosinophils # (Manual) Basophils # (Manual) PT INR APTT D-Dimer Heparin Anti-Xa Level ABG pH ABG pO2 ABG HCO3 ABG O2 Saturation ABG Base Excess ABG Hemoglobin Oxyhemoglobin Sodium 146 H Potassium Chloride 108.0 H Carbon Dioxide BUN 25 H Creatinine Glucose 123 H POC Glucose 109 H Hemoglobin A1c Lactic Acid Calcium 7.8 L Phosphorus Magnesium Ferritin AST ALT Alkaline Phosphatase Lactate Dehydrogenase Troponin T C-Reactive Protein Total Protein Albumin LDL Cholesterol Direct Urine Creatinine Urine Total Protein Salicylates Acetaminophen Crossmatch 11/16/21 11/16/21 11/17/21 11:22 23:55 04:33 WBC RBC Hgb Hct MCH RDW Plt Count Lymph % (Auto) [place] % (Auto) Lymph # (Auto) [place] # (Auto) Seg Neutrophils % Seg Neuts % (Manual) Lymphocytes % (Manual) Monocytes % (Manual) Basophils % (Manual) Nucleated RBC % Seg Neutrophils # Seg Neutrophils # Man Lymphocytes # (Manual) Monocytes # (Manual) Eosinophils # (Manual) Basophils # (Manual) PT INR APTT D-Dimer Heparin Anti-Xa Level ABG pH ABG pO2 ABG HCO3 ABG O2 Saturation ABG Base Excess ABG Hemoglobin Oxyhemoglobin Sodium Potassium Chloride Carbon Dioxide BUN 20 H Creatinine Glucose POC Glucose 136 H 113 H Hemoglobin A1c Lactic Acid Calcium 7.5 L Phosphorus Magnesium Ferritin AST ALT Alkaline Phosphatase Lactate Dehydrogenase Troponin T C-Reactive Protein Total Protein Albumin LDL Cholesterol Direct Urine Creatinine Urine Total Protein Salicylates Acetaminophen Crossmatch 11/17/21 11/18/21 11/18/21 23:22 04:53 04:53 WBC 13.0 H RBC 2.99 L Hgb 8.5 L Hct 26.4 L MCH RDW Plt Count Lymph % (Auto) 9.5 L [place] % (Auto) 9.8 H Lymph # (Auto) [place] # (Auto) 1.3 H Seg Neutrophils % 78.3 H Seg Neuts % (Manual) Lymphocytes % (Manual) Monocytes % (Manual) Basophils % (Manual) Nucleated RBC % Seg Neutrophils # 10.2 H Seg Neutrophils # Man Lymphocytes # (Manual) Monocytes # (Manual) Eosinophils # (Manual) Basophils # (Manual) PT INR APTT D-Dimer Heparin Anti-Xa Level ABG pH ABG pO2 ABG HCO3 ABG O2 Saturation ABG Base Excess ABG Hemoglobin Oxyhemoglobin Sodium Potassium Chloride Carbon Dioxide BUN 18 H Creatinine Glucose 106 H POC Glucose 112 H Hemoglobin A1c Lactic Acid Calcium 8.1 L Phosphorus Magnesium Ferritin AST ALT Alkaline Phosphatase Lactate Dehydrogenase Troponin T C-Reactive Protein Total Protein Albumin LDL Cholesterol Direct Urine Creatinine Urine Total Protein Salicylates Acetaminophen Crossmatch 11/18/21 11/18/21 11/19/21 11:35 17:42 14:38 WBC RBC Hgb Hct MCH RDW Plt Count Lymph % (Auto) [place] % (Auto) Lymph # (Auto) [place] # (Auto) Seg Neutrophils % Seg Neuts % (Manual) Lymphocytes % (Manual) Monocytes % (Manual) Basophils % (Manual) Nucleated RBC % Seg Neutrophils # Seg Neutrophils # Man Lymphocytes # (Manual) Monocytes # (Manual) Eosinophils # (Manual) Basophils # (Manual) PT INR APTT D-Dimer Heparin Anti-Xa Level ABG pH ABG pO2 ABG HCO3 ABG O2 Saturation ABG Base Excess ABG Hemoglobin Oxyhemoglobin Sodium Potassium Chloride 97.5 L Carbon Dioxide 31 H BUN Creatinine Glucose 146 H POC Glucose 143 H 132 H Hemoglobin A1c Lactic Acid Calcium Phosphorus Magnesium 1.60 L Ferritin AST ALT Alkaline Phosphatase Lactate Dehydrogenase Troponin T C-Reactive Protein Total Protein Albumin LDL Cholesterol Direct Urine Creatinine Urine Total Protein Salicylates Acetaminophen Crossmatch 11/19/21 11/19/21 11/20/21 16:24 23:58 07:42 WBC RBC 3.01 L Hgb 8.6 L Hct 26.7 L MCH RDW 15.4 H Plt Count Lymph % (Auto) [place] % (Auto) Lymph # (Auto) [place] # (Auto) Seg Neutrophils % Seg Neuts % (Manual) Lymphocytes % (Manual) Monocytes % (Manual) Basophils % (Manual) Nucleated RBC % Seg Neutrophils # Seg Neutrophils # Man Lymphocytes # (Manual) Monocytes # (Manual) Eosinophils # (Manual) Basophils # (Manual) PT INR APTT D-Dimer Heparin Anti-Xa Level ABG pH ABG pO2 ABG HCO3 ABG O2 Saturation ABG Base Excess ABG Hemoglobin Oxyhemoglobin Sodium Potassium Chloride Carbon Dioxide BUN Creatinine Glucose POC Glucose 129 H 125 H Hemoglobin A1c Lactic Acid Calcium Phosphorus Magnesium Ferritin AST ALT Alkaline Phosphatase Lactate Dehydrogenase Troponin T C-Reactive Protein Total Protein Albumin LDL Cholesterol Direct Urine Creatinine Urine Total Protein Salicylates Acetaminophen Crossmatch 11/20/21 11/20/21 11/20/21 07:42 11:25 22:59 WBC RBC Hgb Hct MCH RDW Plt Count Lymph % (Auto) [place] % (Auto) Lymph # (Auto) [place] # (Auto) Seg Neutrophils % Seg Neuts % (Manual) Lymphocytes % (Manual) Monocytes % (Manual) Basophils % (Manual) Nucleated RBC % Seg Neutrophils # Seg Neutrophils # Man Lymphocytes # (Manual) Monocytes # (Manual) Eosinophils # (Manual) Basophils # (Manual) PT INR APTT D-Dimer Heparin Anti-Xa Level ABG pH ABG pO2 ABG HCO3 ABG O2 Saturation ABG Base Excess ABG Hemoglobin Oxyhemoglobin Sodium Potassium Chloride Carbon Dioxide 31 H BUN Creatinine Glucose POC Glucose 116 H 113 H Hemoglobin A1c Lactic Acid Calcium Phosphorus Magnesium Ferritin AST ALT Alkaline Phosphatase Lactate Dehydrogenase Troponin T C-Reactive Protein Total Protein Albumin LDL Cholesterol Direct Urine Creatinine Urine Total Protein Salicylates Acetaminophen Crossmatch 11/21/21 11/22/21 11/22/21 10:50 05:10 16:12 WBC RBC Hgb Hct MCH RDW Plt Count Lymph % (Auto) [place] % (Auto) Lymph # (Auto) [place] # (Auto) Seg Neutrophils % Seg Neuts % (Manual) Lymphocytes % (Manual) Monocytes % (Manual) Basophils % (Manual) Nucleated RBC % Seg Neutrophils # Seg Neutrophils # Man Lymphocytes # (Manual) Monocytes # (Manual) Eosinophils # (Manual) Basophils # (Manual) PT INR APTT D-Dimer Heparin Anti-Xa Level ABG pH ABG pO2 ABG HCO3 ABG O2 Saturation ABG Base Excess ABG Hemoglobin Oxyhemoglobin Sodium Potassium Chloride Carbon Dioxide 32 H BUN Creatinine Glucose POC Glucose 156 H 110 H Hemoglobin A1c Lactic Acid Calcium 8.1 L Phosphorus Magnesium Ferritin AST ALT Alkaline Phosphatase Lactate Dehydrogenase Troponin T C-Reactive Protein Total Protein Albumin LDL Cholesterol Direct Urine Creatinine Urine Total Protein Salicylates Acetaminophen Crossmatch 11/23/21 11/23/21 11/23/21 07:18 07:18 11:45 WBC RBC 3.23 L Hgb 9.1 L Hct 28.5 L MCH RDW 15.6 H Plt Count Lymph % (Auto) [place] % (Auto) Lymph # (Auto) [place] # (Auto) Seg Neutrophils % Seg Neuts % (Manual) Lymphocytes % (Manual) Monocytes % (Manual) Basophils % (Manual) Nucleated RBC % Seg Neutrophils # Seg Neutrophils # Man Lymphocytes # (Manual) Monocytes # (Manual) Eosinophils # (Manual) Basophils # (Manual) PT INR APTT D-Dimer Heparin Anti-Xa Level ABG pH ABG pO2 ABG HCO3 ABG O2 Saturation ABG Base Excess ABG Hemoglobin Oxyhemoglobin Sodium Potassium 3.3 L Chloride 96.8 L Carbon Dioxide 32 H BUN Creatinine Glucose POC Glucose 140 H Hemoglobin A1c Lactic Acid Calcium Phosphorus Magnesium Ferritin AST ALT Alkaline Phosphatase Lactate Dehydrogenase Troponin T C-Reactive Protein Total Protein Albumin LDL Cholesterol Direct Urine Creatinine Urine Total Protein Salicylates Acetaminophen Crossmatch 11/23/21 11/23/21 11/24/21 16:40 23:45 07:19 WBC RBC 3.12 L Hgb 9.3 L Hct 27.2 L MCH RDW 16.0 H Plt Count Lymph % (Auto) 10.3 L [place] % (Auto) 10.0 H Lymph # (Auto) 1.1 L [place] # (Auto) 1.1 H Seg Neutrophils % 75.2 H Seg Neuts % (Manual) Lymphocytes % (Manual) Monocytes % (Manual) Basophils % (Manual) Nucleated RBC % Seg Neutrophils # 7.9 H Seg Neutrophils # Man Lymphocytes # (Manual) Monocytes # (Manual) Eosinophils # (Manual) Basophils # (Manual) PT INR APTT D-Dimer Heparin Anti-Xa Level ABG pH ABG pO2 ABG HCO3 ABG O2 Saturation ABG Base Excess ABG Hemoglobin Oxyhemoglobin Sodium Potassium Chloride Carbon Dioxide BUN Creatinine Glucose POC Glucose 140 H 138 H Hemoglobin A1c Lactic Acid Calcium Phosphorus Magnesium Ferritin AST ALT Alkaline Phosphatase Lactate Dehydrogenase Troponin T C-Reactive Protein Total Protein Albumin LDL Cholesterol Direct Urine Creatinine Urine Total Protein Salicylates Acetaminophen Crossmatch 11/24/21 11/24/21 11/24/21 07:19 11:49 15:54 WBC RBC Hgb Hct MCH RDW Plt Count Lymph % (Auto) [place] % (Auto) Lymph # (Auto) [place] # (Auto) Seg Neutrophils % Seg Neuts % (Manual) Lymphocytes % (Manual) Monocytes % (Manual) Basophils % (Manual) Nucleated RBC % Seg Neutrophils # Seg Neutrophils # Man Lymphocytes # (Manual) Monocytes # (Manual) Eosinophils # (Manual) Basophils # (Manual) PT INR APTT D-Dimer Heparin Anti-Xa Level ABG pH ABG pO2 ABG HCO3 ABG O2 Saturation ABG Base Excess ABG Hemoglobin Oxyhemoglobin Sodium Potassium 3.2 L Chloride 96.7 L Carbon Dioxide BUN Creatinine Glucose 125 H POC Glucose 118 H 106 H Hemoglobin A1c Lactic Acid Calcium Phosphorus Magnesium Ferritin AST ALT Alkaline Phosphatase Lactate Dehydrogenase Troponin T C-Reactive Protein Total Protein Albumin LDL Cholesterol Direct Urine Creatinine Urine Total Protein Salicylates Acetaminophen Crossmatch 11/25/21 11/25/21 11/25/21 11:49 15:41 20:51 WBC RBC Hgb Hct MCH RDW Plt Count Lymph % (Auto) [place] % (Auto) Lymph # (Auto) [place] # (Auto) Seg Neutrophils % Seg Neuts % (Manual) Lymphocytes % (Manual) Monocytes % (Manual) Basophils % (Manual) Nucleated RBC % Seg Neutrophils # Seg Neutrophils # Man Lymphocytes # (Manual) Monocytes # (Manual) Eosinophils # (Manual) Basophils # (Manual) PT INR APTT D-Dimer Heparin Anti-Xa Level ABG pH ABG pO2 ABG HCO3 ABG O2 Saturation ABG Base Excess ABG Hemoglobin Oxyhemoglobin Sodium Potassium Chloride Carbon Dioxide BUN Creatinine Glucose POC Glucose 119 H 110 H 109 H Hemoglobin A1c Lactic Acid Calcium Phosphorus Magnesium Ferritin AST ALT Alkaline Phosphatase Lactate Dehydrogenase Troponin T C-Reactive Protein Total Protein Albumin LDL Cholesterol Direct Urine Creatinine Urine Total Protein Salicylates Acetaminophen Crossmatch 11/26/21 11/26/21 11/26/21 07:33 11:20 17:03 WBC RBC Hgb Hct MCH RDW Plt Count Lymph % (Auto) [place] % (Auto) Lymph # (Auto) [place] # (Auto) Seg Neutrophils % Seg Neuts % (Manual) Lymphocytes % (Manual) Monocytes % (Manual) Basophils % (Manual) Nucleated RBC % Seg Neutrophils # Seg Neutrophils # Man Lymphocytes # (Manual) Monocytes # (Manual) Eosinophils # (Manual) Basophils # (Manual) PT INR APTT D-Dimer Heparin Anti-Xa Level ABG pH ABG pO2 ABG HCO3 ABG O2 Saturation ABG Base Excess ABG Hemoglobin Oxyhemoglobin Sodium Potassium Chloride Carbon Dioxide BUN Creatinine Glucose POC Glucose 158 H 162 H 144 H Hemoglobin A1c Lactic Acid Calcium Phosphorus Magnesium Ferritin AST ALT Alkaline Phosphatase Lactate Dehydrogenase Troponin T C-Reactive Protein Total Protein Albumin LDL Cholesterol Direct Urine Creatinine Urine Total Protein Salicylates Acetaminophen Crossmatch 11/26/21 11/27/21 11/27/21 21:51 07:44 12:20 WBC RBC Hgb Hct MCH RDW Plt Count Lymph % (Auto) [place] % (Auto) Lymph # (Auto) [place] # (Auto) Seg Neutrophils % Seg Neuts % (Manual) Lymphocytes % (Manual) Monocytes % (Manual) Basophils % (Manual) Nucleated RBC % Seg Neutrophils # Seg Neutrophils # Man Lymphocytes # (Manual) Monocytes # (Manual) Eosinophils # (Manual) Basophils # (Manual) PT INR APTT D-Dimer Heparin Anti-Xa Level ABG pH ABG pO2 ABG HCO3 ABG O2 Saturation ABG Base Excess ABG Hemoglobin Oxyhemoglobin Sodium Potassium Chloride Carbon Dioxide BUN Creatinine Glucose POC Glucose 132 H 129 H 128 H Hemoglobin A1c Lactic Acid Calcium Phosphorus Magnesium Ferritin AST ALT Alkaline Phosphatase Lactate Dehydrogenase Troponin T C-Reactive Protein Total Protein Albumin LDL Cholesterol Direct Urine Creatinine Urine Total Protein Salicylates Acetaminophen Crossmatch 11/27/21 11/27/21 11/28/21 16:44 21:35 07:54 WBC RBC Hgb Hct MCH RDW Plt Count Lymph % (Auto) [place] % (Auto) Lymph # (Auto) [place] # (Auto) Seg Neutrophils % Seg Neuts % (Manual) Lymphocytes % (Manual) Monocytes % (Manual) Basophils % (Manual) Nucleated RBC % Seg Neutrophils # Seg Neutrophils # Man Lymphocytes # (Manual) Monocytes # (Manual) Eosinophils # (Manual) Basophils # (Manual) PT INR APTT D-Dimer Heparin Anti-Xa Level ABG pH ABG pO2 ABG HCO3 ABG O2 Saturation ABG Base Excess ABG Hemoglobin Oxyhemoglobin Sodium Potassium Chloride Carbon Dioxide BUN Creatinine Glucose POC Glucose 126 H 131 H 124 H Hemoglobin A1c Lactic Acid Calcium Phosphorus Magnesium Ferritin AST ALT Alkaline Phosphatase Lactate Dehydrogenase Troponin T C-Reactive Protein Total Protein Albumin LDL Cholesterol Direct Urine Creatinine Urine Total Protein Salicylates Acetaminophen Crossmatch 11/28/21 11/28/21 11/28/21 11:27 11:56 16:34 WBC 12.3 H RBC 3.18 L Hgb 9.2 L Hct 27.8 L MCH RDW 16.1 H Plt Count Lymph % (Auto) 10.9 L [place] % (Auto) 13.7 H Lymph # (Auto) [place] # (Auto) 1.7 H Seg Neutrophils % 72.2 H Seg Neuts % (Manual) Lymphocytes % (Manual) Monocytes % (Manual) Basophils % (Manual) Nucleated RBC % Seg Neutrophils # 8.9 H Seg Neutrophils # Man Lymphocytes # (Manual) Monocytes # (Manual) Eosinophils # (Manual) Basophils # (Manual) PT INR APTT D-Dimer Heparin Anti-Xa Level ABG pH ABG pO2 ABG HCO3 ABG O2 Saturation ABG Base Excess ABG Hemoglobin Oxyhemoglobin Sodium Potassium Chloride Carbon Dioxide BUN Creatinine Glucose POC Glucose 131 H 123 H Hemoglobin A1c Lactic Acid Calcium Phosphorus Magnesium Ferritin AST ALT Alkaline Phosphatase Lactate Dehydrogenase Troponin T C-Reactive Protein Total Protein Albumin LDL Cholesterol Direct Urine Creatinine Urine Total Protein Salicylates Acetaminophen Crossmatch 11/28/21 11/28/21 11/29/21 19:35 21:32 07:33 WBC RBC Hgb Hct MCH RDW Plt Count Lymph % (Auto) [place] % (Auto) Lymph # (Auto) [place] # (Auto) Seg Neutrophils % Seg Neuts % (Manual) Lymphocytes % (Manual) Monocytes % (Manual) Basophils % (Manual) Nucleated RBC % Seg Neutrophils # Seg Neutrophils # Man Lymphocytes # (Manual) Monocytes # (Manual) Eosinophils # (Manual) Basophils # (Manual) PT INR APTT D-Dimer Heparin Anti-Xa Level 0.12 L ABG pH ABG pO2 ABG HCO3 ABG O2 Saturation ABG Base Excess ABG Hemoglobin Oxyhemoglobin Sodium Potassium Chloride Carbon Dioxide BUN Creatinine Glucose POC Glucose 110 H 108 H Hemoglobin A1c Lactic Acid Calcium Phosphorus Magnesium Ferritin AST ALT Alkaline Phosphatase Lactate Dehydrogenase Troponin T C-Reactive Protein Total Protein Albumin LDL Cholesterol Direct Urine Creatinine Urine Total Protein Salicylates Acetaminophen Crossmatch 11/29/21 11/29/21 11/29/21 11:29 13:51 15:25 WBC 13.0 H RBC 3.41 L Hgb 9.5 L Hct 29.9 L MCH RDW 16.2 H Plt Count Lymph % (Auto) 11.1 L [place] % (Auto) 15.5 H Lymph # (Auto) [place] # (Auto) 2.0 H Seg Neutrophils % 71.8 H Seg Neuts % (Manual) Lymphocytes % (Manual) Monocytes % (Manual) Basophils % (Manual) Nucleated RBC % Seg Neutrophils # 9.3 H Seg Neutrophils # Man Lymphocytes # (Manual) Monocytes # (Manual) Eosinophils # (Manual) Basophils # (Manual) PT INR APTT D-Dimer Heparin Anti-Xa Level ABG pH ABG pO2 ABG HCO3 ABG O2 Saturation ABG Base Excess ABG Hemoglobin Oxyhemoglobin Sodium Potassium Chloride Carbon Dioxide BUN Creatinine Glucose POC Glucose 136 H 123 H Hemoglobin A1c Lactic Acid Calcium Phosphorus Magnesium Ferritin AST ALT Alkaline Phosphatase Lactate Dehydrogenase Troponin T C-Reactive Protein Total Protein Albumin LDL Cholesterol Direct Urine Creatinine Urine Total Protein Salicylates Acetaminophen Crossmatch 11/29/21 11/29/21 11/29/21 18:50 18:50 20:16 WBC RBC Hgb Hct MCH RDW Plt Count Lymph % (Auto) [place] % (Auto) Lymph # (Auto) [place] # (Auto) Seg Neutrophils % Seg Neuts % (Manual) Lymphocytes % (Manual) Monocytes % (Manual) Basophils % (Manual) Nucleated RBC % Seg Neutrophils # Seg Neutrophils # Man Lymphocytes # (Manual) Monocytes # (Manual) Eosinophils # (Manual) Basophils # (Manual) PT INR APTT D-Dimer Heparin Anti-Xa Level 0.21 L ABG pH ABG pO2 ABG HCO3 ABG O2 Saturation ABG Base Excess ABG Hemoglobin Oxyhemoglobin Sodium 126 L Potassium Chloride 86.3 L Carbon Dioxide BUN 38 H Creatinine 3.6 H Glucose 153 H POC Glucose 166 H Hemoglobin A1c Lactic Acid Calcium Phosphorus Magnesium Ferritin AST ALT Alkaline Phosphatase Lactate Dehydrogenase Troponin T C-Reactive Protein Total Protein Albumin LDL Cholesterol Direct Urine Creatinine Urine Total Protein Salicylates Acetaminophen Crossmatch 11/30/21 11/30/21 11/30/21 05:14 07:35 11:15 WBC RBC Hgb 8.7 L Hct 26.8 L MCH RDW Plt Count Lymph % (Auto) [place] % (Auto) Lymph # (Auto) [place] # (Auto) Seg Neutrophils % Seg Neuts % (Manual) Lymphocytes % (Manual) Monocytes % (Manual) Basophils % (Manual) Nucleated RBC % Seg Neutrophils # Seg Neutrophils # Man Lymphocytes # (Manual) Monocytes # (Manual) Eosinophils # (Manual) Basophils # (Manual) PT INR APTT D-Dimer Heparin Anti-Xa Level ABG pH ABG pO2 ABG HCO3 ABG O2 Saturation ABG Base Excess ABG Hemoglobin Oxyhemoglobin Sodium Potassium Chloride Carbon Dioxide BUN Creatinine Glucose POC Glucose 114 H 119 H Hemoglobin A1c Lactic Acid Calcium Phosphorus Magnesium Ferritin AST ALT Alkaline Phosphatase Lactate Dehydrogenase Troponin T C-Reactive Protein Total Protein Albumin LDL Cholesterol Direct Urine Creatinine Urine Total Protein Salicylates Acetaminophen Crossmatch 11/30/21 11/30/21 11/30/21 15:26 17:10 18:51 WBC RBC Hgb Hct MCH RDW Plt Count Lymph % (Auto) [place] % (Auto) Lymph # (Auto) [place] # (Auto) Seg Neutrophils % Seg Neuts % (Manual) Lymphocytes % (Manual) Monocytes % (Manual) Basophils % (Manual) Nucleated RBC % Seg Neutrophils # Seg Neutrophils # Man Lymphocytes # (Manual) Monocytes # (Manual) Eosinophils # (Manual) Basophils # (Manual) PT INR APTT D-Dimer Heparin Anti-Xa Level 0.10 L ABG pH ABG pO2 ABG HCO3 ABG O2 Saturation ABG Base Excess ABG Hemoglobin Oxyhemoglobin Sodium 126 L Potassium Chloride 86.5 L Carbon Dioxide BUN 42 H Creatinine 4.0 H Glucose 155 H POC Glucose 157 H Hemoglobin A1c Lactic Acid Calcium 8.0 L Phosphorus Magnesium Ferritin AST ALT Alkaline Phosphatase Lactate Dehydrogenase Troponin T C-Reactive Protein Total Protein Albumin LDL Cholesterol Direct Urine Creatinine Urine Total Protein Salicylates Acetaminophen Crossmatch 11/30/21 12/01/21 12/01/21 20:04 00:39 09:38 WBC 25.2 H RBC 3.06 L Hgb 8.5 L Hct 26.8 L MCH RDW 16.1 H Plt Count Lymph % (Auto) [place] % (Auto) Lymph # (Auto) [place] # (Auto) Seg Neutrophils % Seg Neuts % (Manual) 80.0 H Lymphocytes % (Manual) 9.0 L Monocytes % (Manual) Basophils % (Manual) Nucleated RBC % Seg Neutrophils # Seg Neutrophils # Man 20.2 H Lymphocytes # (Manual) Monocytes # (Manual) 1.3 H Eosinophils # (Manual) Basophils # (Manual) PT INR APTT D-Dimer Heparin Anti-Xa Level 0.18 L ABG pH ABG pO2 ABG HCO3 ABG O2 Saturation ABG Base Excess ABG Hemoglobin Oxyhemoglobin Sodium Potassium Chloride Carbon Dioxide BUN Creatinine Glucose POC Glucose 115 H Hemoglobin A1c Lactic Acid Calcium Phosphorus Magnesium Ferritin AST ALT Alkaline Phosphatase Lactate Dehydrogenase Troponin T C-Reactive Protein Total Protein Albumin LDL Cholesterol Direct Urine Creatinine Urine Total Protein Salicylates Acetaminophen Crossmatch 12/01/21 12/01/21 12/02/21 09:38 11:35 03:22 WBC 23.3 H RBC 2.61 L Hgb 7.5 L Hct 22.8 L MCH RDW 16.1 H Plt Count Lymph % (Auto) [place] % (Auto) Lymph # (Auto) [place] # (Auto) Seg Neutrophils % Seg Neuts % (Manual) 77.0 H Lymphocytes % (Manual) 7.0 L Monocytes % (Manual) 14.0 H Basophils % (Manual) Nucleated RBC % Seg Neutrophils # Seg Neutrophils # Man 17.9 H Lymphocytes # (Manual) Monocytes # (Manual) 3.3 H Eosinophils # (Manual) Basophils # (Manual) 0.2 H PT INR APTT D-Dimer Heparin Anti-Xa Level ABG pH ABG pO2 ABG HCO3 ABG O2 Saturation ABG Base Excess ABG Hemoglobin Oxyhemoglobin Sodium 127 L Potassium 5.1 H Chloride 87.9 L Carbon Dioxide BUN 49 H Creatinine 4.9 H Glucose 134 H POC Glucose 109 H Hemoglobin A1c Lactic Acid Calcium 7.9 L Phosphorus Magnesium Ferritin AST ALT Alkaline Phosphatase Lactate Dehydrogenase Troponin T C-Reactive Protein Total Protein Albumin LDL Cholesterol Direct Urine Creatinine Urine Total Protein Salicylates Acetaminophen Crossmatch 12/02/21 12/02/21 12/02/21 03:22 03:22 15:40 WBC RBC Hgb Hct MCH RDW Plt Count Lymph % (Auto) [place] % (Auto) Lymph # (Auto) [place] # (Auto) Seg Neutrophils % Seg Neuts % (Manual) Lymphocytes % (Manual) Monocytes % (Manual) Basophils % (Manual) Nucleated RBC % Seg Neutrophils # Seg Neutrophils # Man Lymphocytes # (Manual) Monocytes # (Manual) Eosinophils # (Manual) Basophils # (Manual) PT INR APTT D-Dimer Heparin Anti-Xa Level 0.15 L < 0.10 L ABG pH ABG pO2 ABG HCO3 ABG O2 Saturation ABG Base Excess ABG Hemoglobin Oxyhemoglobin Sodium 129 L Potassium Chloride 91.7 L Carbon Dioxide BUN 42 H Creatinine 4.4 H Glucose POC Glucose Hemoglobin A1c Lactic Acid Calcium 8.0 L Phosphorus 5.20 H Magnesium Ferritin AST ALT Alkaline Phosphatase Lactate Dehydrogenase Troponin T C-Reactive Protein Total Protein Albumin LDL Cholesterol Direct Urine Creatinine Urine Total Protein Salicylates Acetaminophen Crossmatch 12/02/21 12/02/21 12/03/21 17:45 21:03 05:24 WBC 22.3 H RBC 2.69 L Hgb 7.4 L Hct 23.5 L MCH RDW 16.5 H Plt Count Lymph % (Auto) [place] % (Auto) Lymph # (Auto) [place] # (Auto) Seg Neutrophils % Seg Neuts % (Manual) 85.5 H Lymphocytes % (Manual) 6.0 L Monocytes % (Manual) Basophils % (Manual) Nucleated RBC % Seg Neutrophils # Seg Neutrophils # Man 19.1 H Lymphocytes # (Manual) Monocytes # (Manual) 1.0 H Eosinophils # (Manual) 0.7 H Basophils # (Manual) PT INR APTT D-Dimer Heparin Anti-Xa Level ABG pH ABG pO2 ABG HCO3 ABG O2 Saturation ABG Base Excess ABG Hemoglobin Oxyhemoglobin Sodium Potassium Chloride Carbon Dioxide BUN Creatinine Glucose POC Glucose 122 H 121 H Hemoglobin A1c Lactic Acid Calcium Phosphorus Magnesium Ferritin AST ALT Alkaline Phosphatase Lactate Dehydrogenase Troponin T C-Reactive Protein Total Protein Albumin LDL Cholesterol Direct Urine Creatinine Urine Total Protein Salicylates Acetaminophen Crossmatch 12/03/21 12/03/21 12/03/21 08:00 11:19 15:11 WBC RBC Hgb Hct MCH RDW Plt Count Lymph % (Auto) [place] % (Auto) Lymph # (Auto) [place] # (Auto) Seg Neutrophils % Seg Neuts % (Manual) Lymphocytes % (Manual) Monocytes % (Manual) Basophils % (Manual) Nucleated RBC % Seg Neutrophils # Seg Neutrophils # Man Lymphocytes # (Manual) Monocytes # (Manual) Eosinophils # (Manual) Basophils # (Manual) PT INR APTT D-Dimer Heparin Anti-Xa Level ABG pH ABG pO2 ABG HCO3 ABG O2 Saturation ABG Base Excess ABG Hemoglobin Oxyhemoglobin Sodium 134 L Potassium Chloride 95.9 L Carbon Dioxide BUN 30 H Creatinine 3.5 H Glucose 110 H POC Glucose 108 H 117 H Hemoglobin A1c Lactic Acid Calcium Phosphorus Magnesium Ferritin AST ALT Alkaline Phosphatase Lactate Dehydrogenase Troponin T C-Reactive Protein Total Protein Albumin LDL Cholesterol Direct Urine Creatinine Urine Total Protein Salicylates Acetaminophen Crossmatch 12/03/21 12/04/21 12/04/21 20:32 06:15 06:15 WBC 18.5 H RBC 2.88 L Hgb 8.0 L Hct 25.6 L MCH RDW 16.4 H Plt Count Lymph % (Auto) [place] % (Auto) Lymph # (Auto) [place] # (Auto) Seg Neutrophils % Seg Neuts % (Manual) 74.0 H Lymphocytes % (Manual) 11.0 L Monocytes % (Manual) 9.0 H Basophils % (Manual) Nucleated RBC % Seg Neutrophils # Seg Neutrophils # Man 13.7 H Lymphocytes # (Manual) Monocytes # (Manual) 1.7 H Eosinophils # (Manual) Basophils # (Manual) PT INR APTT D-Dimer Heparin Anti-Xa Level ABG pH ABG pO2 ABG HCO3 ABG O2 Saturation ABG Base Excess ABG Hemoglobin Oxyhemoglobin Sodium 135 L Potassium Chloride 96.9 L Carbon Dioxide BUN 19 H Creatinine 2.8 H Glucose 102 H POC Glucose 122 H Hemoglobin A1c Lactic Acid Calcium Phosphorus Magnesium Ferritin AST ALT Alkaline Phosphatase Lactate Dehydrogenase Troponin T C-Reactive Protein Total Protein Albumin LDL Cholesterol Direct Urine Creatinine Urine Total Protein Salicylates Acetaminophen Crossmatch 12/04/21 12/04/21 12/04/21 08:14 11:17 15:58 WBC RBC Hgb Hct MCH RDW Plt Count Lymph % (Auto) [place] % (Auto) Lymph # (Auto) [place] # (Auto) Seg Neutrophils % Seg Neuts % (Manual) Lymphocytes % (Manual) Monocytes % (Manual) Basophils % (Manual) Nucleated RBC % Seg Neutrophils # Seg Neutrophils # Man Lymphocytes # (Manual) Monocytes # (Manual) Eosinophils # (Manual) Basophils # (Manual) PT INR APTT D-Dimer Heparin Anti-Xa Level ABG pH ABG pO2 ABG HCO3 ABG O2 Saturation ABG Base Excess ABG Hemoglobin Oxyhemoglobin Sodium Potassium Chloride Carbon Dioxide BUN Creatinine Glucose POC Glucose 106 H 125 H 113 H Hemoglobin A1c Lactic Acid Calcium Phosphorus Magnesium Ferritin AST ALT Alkaline Phosphatase Lactate Dehydrogenase Troponin T C-Reactive Protein Total Protein Albumin LDL Cholesterol Direct Urine Creatinine Urine Total Protein Salicylates Acetaminophen Crossmatch 12/04/21 12/05/21 12/05/21 20:25 05:05 08:15 WBC 19.4 H RBC 2.89 L Hgb 8.1 L Hct 25.6 L MCH RDW 16.3 H Plt Count Lymph % (Auto) [place] % (Auto) Lymph # (Auto) [place] # (Auto) Seg Neutrophils % Seg Neuts % (Manual) Lymphocytes % (Manual) 13.0 L Monocytes % (Manual) 13.0 H Basophils % (Manual) Nucleated RBC % Seg Neutrophils # Seg Neutrophils # Man 12.4 H Lymphocytes # (Manual) Monocytes # (Manual) 2.5 H Eosinophils # (Manual) 0.8 H Basophils # (Manual) PT INR APTT D-Dimer Heparin Anti-Xa Level ABG pH ABG pO2 ABG HCO3 ABG O2 Saturation ABG Base Excess ABG Hemoglobin Oxyhemoglobin Sodium Potassium Chloride Carbon Dioxide BUN Creatinine Glucose POC Glucose 130 H 107 H Hemoglobin A1c Lactic Acid Calcium Phosphorus Magnesium Ferritin AST ALT Alkaline Phosphatase Lactate Dehydrogenase Troponin T C-Reactive Protein Total Protein Albumin LDL Cholesterol Direct Urine Creatinine Urine Total Protein Salicylates Acetaminophen Crossmatch 12/05/21 12/05/21 12/05/21 11:18 16:42 21:14 WBC RBC Hgb Hct MCH RDW Plt Count Lymph % (Auto) [place] % (Auto) Lymph # (Auto) [place] # (Auto) Seg Neutrophils % Seg Neuts % (Manual) Lymphocytes % (Manual) Monocytes % (Manual) Basophils % (Manual) Nucleated RBC % Seg Neutrophils # Seg Neutrophils # Man Lymphocytes # (Manual) Monocytes # (Manual) Eosinophils # (Manual) Basophils # (Manual) PT INR APTT D-Dimer Heparin Anti-Xa Level ABG pH ABG pO2 ABG HCO3 ABG O2 Saturation ABG Base Excess ABG Hemoglobin Oxyhemoglobin Sodium Potassium Chloride Carbon Dioxide BUN Creatinine Glucose POC Glucose 114 H 122 H 119 H Hemoglobin A1c Lactic Acid Calcium Phosphorus Magnesium Ferritin AST ALT Alkaline Phosphatase Lactate Dehydrogenase Troponin T C-Reactive Protein Total Protein Albumin LDL Cholesterol Direct Urine Creatinine Urine Total Protein Salicylates Acetaminophen Crossmatch 12/05/21 12/06/21 12/06/21 23:51 04:36 04:36 WBC RBC Hgb 8.0 L Hct 25.7 L MCH RDW Plt Count Lymph % (Auto) [place] % (Auto) Lymph # (Auto) [place] # (Auto) Seg Neutrophils % Seg Neuts % (Manual) Lymphocytes % (Manual) Monocytes % (Manual) Basophils % (Manual) Nucleated RBC % Seg Neutrophils # Seg Neutrophils # Man Lymphocytes # (Manual) Monocytes # (Manual) Eosinophils # (Manual) Basophils # (Manual) PT INR APTT D-Dimer Heparin Anti-Xa Level 0.71 H ABG pH ABG pO2 ABG HCO3 ABG O2 Saturation ABG Base Excess ABG Hemoglobin Oxyhemoglobin Sodium 132 L Potassium Chloride 92.5 L Carbon Dioxide BUN 35 H Creatinine 4.0 H Glucose POC Glucose Hemoglobin A1c Lactic Acid Calcium Phosphorus Magnesium Ferritin AST ALT Alkaline Phosphatase Lactate Dehydrogenase Troponin T C-Reactive Protein Total Protein Albumin LDL Cholesterol Direct Urine Creatinine Urine Total Protein Salicylates Acetaminophen Crossmatch 12/06/21 12/06/21 12/06/21 07:32 11:12 15:49 WBC RBC Hgb Hct MCH RDW Plt Count Lymph % (Auto) [place] % (Auto) Lymph # (Auto) [place] # (Auto) Seg Neutrophils % Seg Neuts % (Manual) Lymphocytes % (Manual) Monocytes % (Manual) Basophils % (Manual) Nucleated RBC % Seg Neutrophils # Seg Neutrophils # Man Lymphocytes # (Manual) Monocytes # (Manual) Eosinophils # (Manual) Basophils # (Manual) PT INR APTT D-Dimer Heparin Anti-Xa Level ABG pH ABG pO2 ABG HCO3 ABG O2 Saturation ABG Base Excess ABG Hemoglobin Oxyhemoglobin Sodium Potassium Chloride Carbon Dioxide BUN Creatinine Glucose POC Glucose 106 H 112 H 111 H Hemoglobin A1c Lactic Acid Calcium Phosphorus Magnesium Ferritin AST ALT Alkaline Phosphatase Lactate Dehydrogenase Troponin T C-Reactive Protein Total Protein Albumin LDL Cholesterol Direct Urine Creatinine Urine Total Protein Salicylates Acetaminophen Crossmatch 12/06/21 12/06/21 12/07/21 17:13 21:31 06:11 WBC RBC Hgb Hct MCH RDW Plt Count Lymph % (Auto) [place] % (Auto) Lymph # (Auto) [place] # (Auto) Seg Neutrophils % Seg Neuts % (Manual) Lymphocytes % (Manual) Monocytes % (Manual) Basophils % (Manual) Nucleated RBC % Seg Neutrophils # Seg Neutrophils # Man Lymphocytes # (Manual) Monocytes # (Manual) Eosinophils # (Manual) Basophils # (Manual) PT INR APTT D-Dimer Heparin Anti-Xa Level ABG pH ABG pO2 ABG HCO3 ABG O2 Saturation ABG Base Excess ABG Hemoglobin Oxyhemoglobin Sodium 126 L Potassium Chloride 90.1 L Carbon Dioxide BUN 43 H Creatinine 4.2 H Glucose POC Glucose 113 H 112 H Hemoglobin A1c Lactic Acid Calcium Phosphorus Magnesium Ferritin AST ALT Alkaline Phosphatase Lactate Dehydrogenase Troponin T C-Reactive Protein Total Protein Albumin LDL Cholesterol Direct Urine Creatinine Urine Total Protein Salicylates Acetaminophen Crossmatch 12/07/21 12/07/21 12/08/21 12:04 21:36 04:53 WBC RBC Hgb Hct MCH RDW Plt Count Lymph % (Auto) [place] % (Auto) Lymph # (Auto) [place] # (Auto) Seg Neutrophils % Seg Neuts % (Manual) Lymphocytes % (Manual) Monocytes % (Manual) Basophils % (Manual) Nucleated RBC % Seg Neutrophils # Seg Neutrophils # Man Lymphocytes # (Manual) Monocytes # (Manual) Eosinophils # (Manual) Basophils # (Manual) PT INR APTT D-Dimer Heparin Anti-Xa Level ABG pH ABG pO2 ABG HCO3 ABG O2 Saturation ABG Base Excess ABG Hemoglobin Oxyhemoglobin Sodium 128 L Potassium Chloride 93.1 L Carbon Dioxide 21 L BUN 39 H Creatinine 3.9 H Glucose 103 H POC Glucose 119 H 112 H Hemoglobin A1c Lactic Acid Calcium Phosphorus Magnesium Ferritin AST ALT Alkaline Phosphatase Lactate Dehydrogenase Troponin T C-Reactive Protein Total Protein Albumin LDL Cholesterol Direct Urine Creatinine Urine Total Protein Salicylates Acetaminophen Crossmatch 12/08/21 12/08/21 12/08/21 04:53 08:56 11:20 WBC 24.2 H RBC 2.71 L Hgb 7.6 L Hct 24.1 L MCH RDW 16.7 H Plt Count 114 L Lymph % (Auto) [place] % (Auto) Lymph # (Auto) [place] # (Auto) Seg Neutrophils % Seg Neuts % (Manual) 76.0 H Lymphocytes % (Manual) Monocytes % (Manual) Basophils % (Manual) Nucleated RBC % 1.0 H Seg Neutrophils # Seg Neutrophils # Man 18.4 H Lymphocytes # (Manual) Monocytes # (Manual) 1.5 H Eosinophils # (Manual) 1.0 H Basophils # (Manual) PT INR APTT D-Dimer Heparin Anti-Xa Level 0.94 H ABG pH ABG pO2 ABG HCO3 ABG O2 Saturation ABG Base Excess ABG Hemoglobin Oxyhemoglobin Sodium Potassium Chloride Carbon Dioxide BUN Creatinine Glucose POC Glucose 119 H Hemoglobin A1c Lactic Acid Calcium Phosphorus Magnesium Ferritin AST ALT Alkaline Phosphatase Lactate Dehydrogenase Troponin T C-Reactive Protein Total Protein Albumin LDL Cholesterol Direct Urine Creatinine Urine Total Protein Salicylates Acetaminophen Crossmatch 12/08/21 12/08/21 12/09/21 16:55 21:18 07:05 WBC RBC Hgb Hct MCH RDW Plt Count Lymph % (Auto) [place] % (Auto) Lymph # (Auto) [place] # (Auto) Seg Neutrophils % Seg Neuts % (Manual) Lymphocytes % (Manual) Monocytes % (Manual) Basophils % (Manual) Nucleated RBC % Seg Neutrophils # Seg Neutrophils # Man Lymphocytes # (Manual) Monocytes # (Manual) Eosinophils # (Manual) Basophils # (Manual) PT INR APTT D-Dimer Heparin Anti-Xa Level ABG pH ABG pO2 ABG HCO3 ABG O2 Saturation ABG Base Excess ABG Hemoglobin Oxyhemoglobin Sodium 124 L Potassium Chloride 89.9 L Carbon Dioxide BUN 45 H Creatinine 3.5 H Glucose POC Glucose 112 H 122 H Hemoglobin A1c Lactic Acid Calcium Phosphorus Magnesium Ferritin AST ALT Alkaline Phosphatase Lactate Dehydrogenase Troponin T C-Reactive Protein Total Protein Albumin LDL Cholesterol Direct Urine Creatinine Urine Total Protein Salicylates Acetaminophen Crossmatch 12/09/21 12/09/21 12/10/21 11:02 20:11 05:22 WBC RBC Hgb Hct MCH RDW Plt Count Lymph % (Auto) [place] % (Auto) Lymph # (Auto) [place] # (Auto) Seg Neutrophils % Seg Neuts % (Manual) Lymphocytes % (Manual) Monocytes % (Manual) Basophils % (Manual) Nucleated RBC % Seg Neutrophils # Seg Neutrophils # Man Lymphocytes # (Manual) Monocytes # (Manual) Eosinophils # (Manual) Basophils # (Manual) PT INR APTT D-Dimer Heparin Anti-Xa Level ABG pH ABG pO2 ABG HCO3 ABG O2 Saturation ABG Base Excess ABG Hemoglobin Oxyhemoglobin Sodium 131 L D Potassium Chloride 97.0 L Carbon Dioxide BUN 34 H Creatinine 2.9 H Glucose POC Glucose 132 H 108 H Hemoglobin A1c Lactic Acid Calcium Phosphorus Magnesium Ferritin AST ALT Alkaline Phosphatase Lactate Dehydrogenase Troponin T C-Reactive Protein Total Protein Albumin LDL Cholesterol Direct Urine Creatinine Urine Total Protein Salicylates Acetaminophen Crossmatch 12/10/21 12/10/21 05:22 07:48 WBC 14.5 H RBC 2.65 L Hgb 7.7 L Hct 23.6 L MCH RDW 17.0 H Plt Count 119 L Lymph % (Auto) [place] % (Auto) Lymph # (Auto) [place] # (Auto) Seg Neutrophils % Seg Neuts % (Manual) 73.0 H Lymphocytes % (Manual) 7.0 L Monocytes % (Manual) Basophils % (Manual) 2.0 H Nucleated RBC % 1.0 H Seg Neutrophils # Seg Neutrophils # Man 10.6 H Lymphocytes # (Manual) 1.0 L Monocytes # (Manual) Eosinophils # (Manual) Basophils # (Manual) 0.3 H PT INR APTT D-Dimer Heparin Anti-Xa Level ABG pH ABG pO2 ABG HCO3 ABG O2 Saturation ABG Base Excess ABG Hemoglobin Oxyhemoglobin Sodium Potassium Chloride Carbon Dioxide BUN Creatinine Glucose POC Glucose 106 H Hemoglobin A1c Lactic Acid Calcium Phosphorus Magnesium Ferritin AST ALT Alkaline Phosphatase Lactate Dehydrogenase Troponin T C-Reactive Protein Total Protein Albumin LDL Cholesterol Direct Urine Creatinine Urine Total Protein Salicylates Acetaminophen Crossmatch Allied health notes reviewed: nursing
[2021-12-10] MEDS: MORPHINE 2 MG/1 ML INJ IV PRN (16:34)
[2021-12-10] MEDS: MELATONIN 5 MG TAB PO PRN (22:19)
[2021-12-11] MEDS: oxyCODONE /ACETAMINOPHEN 5-325MG TAB PO PRN (04:53)
[2021-12-11] MEDS: GABAPENTIN 100 MG CAP PO SCH ×3 (05:24→21:23)
[2021-12-11 06:02] LABS: Calcium 8.7 mg/dL (8.4-10.2)
[2021-12-11] MEDS: AMIODARONE 200 MG TAB PO SCH (09:15)
[2021-12-11] MEDS: ACETAMINOPHEN 325 MG TAB PO PRN ×2 (09:15→16:42)
[2021-12-11] MEDS: FAMOTIDINE 10 MG TAB PO SCH ×2 (09:15→21:24)
[2021-12-11] MEDS: METOPROLOL TARTRATE 50 MG TAB PO SCH ×2 (09:15→21:24)
[2021-12-11] MEDS: MIDODRINE 5 MG TAB PO SCH ×3 (09:15→17:23)
[2021-12-11] MEDS: ALPRAZolam 0.25 MG TAB PO PRN (09:16)
[2021-12-11] MEDS: SENNOSIDES/DOCUSATE SODIUM 8.6/50 MG TAB PO SCH ×2 (09:23→21:28)
[2021-12-11] MEDS: INSULIN LISPRO 100 UNIT/ML SUB-Q SCH ×4 (09:23→22:18)
[2021-12-11] MEDS: DOCUSATE SODIUM 100 MG CAP PO SCH ×2 (09:23→21:24)
--- NOTE | 2021-12-11 09:38 | Progress Note ---
Assessment and Plan Acute Renal Failure secondary to Ischemic ATN secondary to Sepsis, Cardiac arrest and Hypotension S/P Cardiac Arrest Acute Hypoxemic Respiratory Failure Acute DVT Sepsis CHF Anemia Hyperkalemia Hyponatremia Plan: most likely HD again tomorrow, no indication for today fluid restriction 1000 cc a day CHF-LVEF 25-30 % Anemia-On Epogen 10,000 units TIW Obtain daily weights Strict I/O's daily Renally dose medications Avoid nephrotoxic agents Continue to monitor renal function closely Assess dialysis needs daily Subjective Date of service: 12/11/21 Principal diagnosis: AHRF; Cardiac arrest; R. pneumothorax; pneumonia; AMS; DVT's; SIERRA; Obesity Interval history: no overnight events Objective - Vital Signs Vital signs: Vital Signs - 12hr 12/10/21 12/10/21 12/10/21 21:48 22:00 23:28 Temperature 97.9 F Pulse Rate 65 48 L Respiratory 20 Rate Respiratory 17 Rate [Bilateral Lower] Blood Pressure 122/64 112/55 O2 Sat by Pulse 97 Oximetry 12/11/21 12/11/21 12/11/21 00:00 04:20 04:43 Temperature 98.1 F Pulse Rate 92 H 89 42 L Respiratory 20 Rate Respiratory Rate [Bilateral Lower] Blood Pressure 120/53 O2 Sat by Pulse 99 Oximetry 12/11/21 12/11/21 12/11/21 04:53 08:08 08:18 Temperature 97.7 F Pulse Rate 52 L Respiratory 17 16 Rate Respiratory Rate [Bilateral Lower] Blood Pressure 117/53 O2 Sat by Pulse 98 100 Oximetry - Lab 12/10/21 05:22 12/11/21 05:21 Most recent lab results ABG pH 7.450 pH Units (7.350-7.450) 12/01/21 Unknown ABG pCO2 38.0 mm Hg 12/01/21 Unknown ABG pO2 88.9 mm Hg (80.0-90.0) 12/01/21 Unknown ABG HCO3 25.8 mmol/L (20.0-26.0) 12/01/21 Unknown ABG O2 Saturation 97.2 % (95.0-99.0) 12/01/21 Unknown Calcium 8.7 mg/dL (8.4-10.2) 12/11/21 05:21 Phosphorus 5.20 mg/dL (2.5-4.5) H 12/02/21 03:22 Magnesium 1.60 mg/dL (1.7-2.3) L 11/19/21 14:38 Urine Creatinine 190.9 mg/dL (0.1-20.0) H 11/04/21 Unknown Urine Sodium 10 mmol/L 11/04/21 Unknown Urine Total Protein 172 mg/dL (5-11.8) H 11/04/21 Unknown Medications & Allergies - Medications Allergies/Adverse Reactions: Allergies No Known Allergies Allergy (Verified 10/29/21 14:01) Home Medications: Home Medications Medication Instructions Recorded Confirmed Last Taken Type Unobtainable 11/10/21 11/10/21 Unknown History Active Medications: Generic Name Dose Route Start Last Admin Trade Name Freq PRN Reason Stop Dose Admin Acetaminophen 650 mg 10/29/21 17:04 11/12/21 22:53 Acetaminophen 650 Mg Rect Supp W[place] 650 mg Q6H PRN Administration Pain MILD(1-3)/Fever >100.5/NIEVES Acetaminophen 650 mg 11/19/21 16:35 12/11/21 09:15 Acetaminophen 325 Mg Tab PO 650 mg Q6HR PRN Administration PAIN Albumin Human 50 gm 12/02/21 11:00 12/02/21 11:55 Albumin Human 25% (25 Gm/100 Ml) Inj IV 50 gm ZACH PRN Administration Hypotension Alprazolam 0.25 mg 11/14/21 14:29 12/11/21 09:16 Alprazolam 0.25 Mg Tab PO 0.25 mg Q8H PRN Administration Anxiety Amiodarone HCl 200 mg 12/10/21 10:00 12/11/21 09:15 Amiodarone 200 Mg Tab PO 200 mg DAILY RAMON Administration Docusate Sodium 100 mg 11/18/21 15:00 12/11/21 09:23 Docusate Sodium 100 Mg Cap PO Not Given BID RAMON Epoetin Landon-epbx 10,000 unit 12/06/21 10:00 12/07/21 15:30 Epoetin [place]andon-Epbx 10,000 Unit/1 Ml Vial IV 10,000 unit ZACH PRN Administration hemodialysis Famotidine 10 mg 11/06/21 10:00 12/11/21 09:15 Famotidine 10 Mg Tab PO 10 mg BID RAMON Administration Gabapentin 100 mg 11/28/21 14:00 12/11/21 05:24 Gabapentin 100 Mg Cap PO 100 mg Q8HR RAMON Administration Heparin Sodium (Porcine) 4,000 unit 12/01/21 07:50 12/02/21 17:22 Heparin 10,000 Units/10 Ml Vial 40 unit/kg (4300 unit) 4,000 unit IV Administration Q6H PRN Anti-Xa Assay < 0.1 units/ml Hydrophilic Ointment 1 applic 10/29/21 14:29 11/09/21 08:51 Lip Therapy Vaseline TP 1 applic Q2HR PRN Administration Dry Lips Heparin Sodium/Sodium Chloride 25,000 unit in 500 mls @ 30 mls/hr 11/28/21 17:00 12/11/21 06:08 Heparin/ 0.45% Nacl-25,000 Unit/500 Ml IV 1,550 units/hr TITR RAMON 31 mls/hr Titration Protocol 1,500 UNITS/HR Sodium Chloride 100 mls @ 999 mls/hr 12/01/21 14:44 Nacl 0.9% IV ZACH PRN Hypotension Insulin Human Lispro 0 unit 11/25/21 22:00 12/11/21 09:23 Insulin Lispro 100 Unit/Ml SUB-Q Not Given ACHS RAMON Protocol Lactulose 20 gm 11/18/21 14:43 12/06/21 15:26 Lactulose 20 Gm/30 Ml Oral Liqd PO 20 gm Q6H PRN Administration Constipation Melatonin 10 mg 11/22/21 17:31 12/10/21 22:19 Melatonin 5 Mg Tab PO 10 mg QHS PRN Administration Sleep Metoprolol Tartrate 100 mg 12/07/21 11:00 12/11/21 09:15 Metoprolol Tartrate 50 Mg Tab PO 100 mg BID RAMON Administration Midodrine 10 mg 12/01/21 12:00 12/11/21 09:15 Midodrine 5 Mg Tab PO 10 mg TID@0800,1200,1600 RAMON Administration Morphine Sulfate 1 mg 11/28/21 15:00 12/10/21 16:34 Morphine 2 Mg/1 Ml Inj IV 1 mg Q4H PRN Administration Pain, Moderate (4-6) Multi-Ingred Cream/Lotion/Oil/Oint 1 applic 10/29/21 14:29 11/06/21 09:25 Mineral Oil/Petrolatum, White Ophth Oint 3.5 Gm OU 1 applic Q4HR PRN Administration Dry Eye(s) Oxycodone/Acetaminophen 1 tab 11/27/21 14:31 12/11/21 04:53 Oxycodone /Acetaminophen 5-325mg Tab PO 1 tab Q4H PRN Administration Pain, Moderate (4-6) Polyethylene Glycol 17 gm 11/20/21 12:47 12/08/21 09:54 Polyethylene Glycol 3350 17 Gm Powder PO 17 gm QDAY PRN Administration Constipation Senna/Docusate Sodium 1 tab 11/16/21 22:00 12/11/21 09:23 Sennosides/Docusate Sodium 8.6/50 Mg Tab PO Not Given BID RAMON Sodium Chloride 10 ml 10/29/21 22:00 12/11/21 09:18 Sodium Chloride 0.9% 10 Ml Flush Syringe IV 10 ml BID RAMON Administration Sodium Chloride 10 ml 10/29/21 17:04 Sodium Chloride 0.9% 10 Ml Flush Syringe IV PRN PRN LINE FLUSH
--- NOTE | 2021-12-11 10:11 | Progress Note ---
Assessment and Plan Patient is a 66-year-old female with unknown past medical history brought into the ED following outside of hospital cardiac arrest thought to be PEA with thought to have downtime of 7 to 9 minutes however details are unclear S/P PEA cardiopulmonary arrest- Acute hypoxic respiratory failure-pulm following Septic shock Bacteremia Pneumonia Acute renal failure on HD-nephrology following Atrial flutter w/ RVR Pneumothorax- s/p CT Acute bilateral DVT-on Heparin gtt Hypokalemia Transaminitis Retroperitoneal Hematoma s/p IVC Echo 10/30/2021-technically difficult study due to body habitus. EF 25 to 30%. Right ventricular systolic function is normal. No pericardial effusion Plan: in discussion with hospitalist start elquis and stop heparin and monitor labs Continue metoprolol 100 mg p.o. twice daily for rate control. Decrease to amiodarone 200 mg p.o. daily discussed with primary care team about right foot pain - Patient Problems (1) ESRD (end stage renal disease) on dialysis Current Visit: Yes Status: Acute (2) Acute hypoxemic respiratory failure Current Visit: Yes Status: Acute (3) Atrial fibrillation and flutter Current Visit: Yes Status: Acute (4) Cardiac arrest Current Visit: Yes Status: Acute (5) Cardiomyopathy Current Visit: Yes Status: Acute (6) Cardiopulmonary arrest Current Visit: Yes Status: Acute (7) Pneumothorax, right Current Visit: Yes Status: Acute (8) SIRS (systemic inflammatory response syndrome) Current Visit: Yes Status: Acute (9) Septic shock Current Visit: Yes Status: Acute (10) Shock liver Current Visit: Yes Status: Acute Subjective Date of service: 12/11/21 Principal diagnosis: AHRF; Cardiac arrest; R. pneumothorax; pneumonia; AMS; DVT's; SIERRA; Obesity Interval history: pt has right foot pain Objective Vital Signs Temp Pulse Pulse Resp Resp BP Pulse Ox 12/11/21 08:18 100 12/11/21 08:08 97.7 F 52 L 16 117/53 98 12/11/21 08:00 74 18 96 12/11/21 04:53 17 12/11/21 04:43 98.1 F 42 L 20 120/53 99 12/11/21 04:20 89 12/11/21 00:00 92 H 12/10/21 23:28 97.9 F 48 L 20 112/55 97 12/10/21 22:00 17 12/10/21 21:48 65 122/64 12/10/21 21:15 100 12/10/21 20:55 97.9 F 65 20 122/64 98 12/10/21 20:00 66 97 12/10/21 16:15 98.0 F 90 18 105/56 99 12/10/21 12:14 97.6 F 66 18 118/70 99 12/10/21 12:00 93 H - Physical Examination General: No Apparent Distress HEENT: Positive: EOMI, Normocephaly Neck: Positive: trachea midline. Negative: JVD/HJR Cardiac: Positive: Reg Rate and Rhythm Lungs: Positive: Normal Exam Neuro: Positive: Grossly Intact Abdomen: Positive: Soft Skin: Negative: Rash Musculoskeletal: No Pain Extremities: Present: upper extr. pulses, +1 Edema, warm - Labs and Meds Comprehensive Metabolic Panel 12/11/21 Range/Units 05:21 Sodium 129 L (137-145) mmol/L Potassium 4.7 (3.6-5.0) mmol/L Chloride 94.3 L (98-107) mmol/L Carbon Dioxide 24 (22-30) mmol/L BUN 41 H (7-17) mg/dL Creatinine 3.0 H (0.6-1.2) mg/dL Glucose 111 H (65-100) mg/dL Calcium 8.7 (8.4-10.2) mg/dL - Imaging and Cardiology EKG: report reviewed, image reviewed Echo: report reviewed - EKG Sinus rhythms and dysrhythmias: sinus rhythm Ventricular dysrhythmias: ventricular premature com Repolarization changes or abnormalities: nonspecific abnormality, ST segment, and/or T wave Myocardial infarction: septal OH (old age or ind - Allied health notes Allied health notes reviewed: nursing
--- NOTE | 2021-12-11 11:32 | Progress Note ---
Assessment and Plan Assessment and plan: 66 YO Female with Obesity was attending [facility] services when the patient collapsed and lost consciousness. Witnesses began CPR. EMS was notified and upon arrival the patient was found to be in distress without perfusing cardiac rhythm. Patient initiated on ACLS protocol and subsequently intubated in the field and transported to ED. The patient regained spontaneous circulation during transport. She was found to have acute hypoxemic respiratory failure, septic shock suspected secondary to aspiration pneumonia, metabolic acidosis, toxic metabolic encephalopathy, shock liver, and cardiac arrest with return of perfusing cardiac rhythm after initiation of ACLS protocol. Patient initiated on sepsis protocol as well as pneumonia protocol. Patient admitted to ICU. Patient improved, extubated on 11/11 and transferred to floor on 11/19. s/p cardiac arrest, collapse at [facility], HFrEF, shock/hypotension resolved Atrial fibrillation/atrial flutter -Cardiac arrest and collapse at [facility] with ROSC -Cardiology consulted, appreciate recommendations - S/p Cardizem gtt- d/c due to low EF; now on PO Amio -s/p vasopressor support with levophed -Echocardiogram shows left ventricular systolic function severely decreased, LVEF 25 to 30%, no pericardial effusion -proBNP 5622 -Continue Lasix 20 mg twice daily, BB, spironolactone, losartan -No significant volume overload clinically Acute hypoxic respiratory failure, right pneumothorax, Angioedema (resolved), pulmonary edema -[facility] consulted, appreciate recommendations -Intubated on 10/29 and extubated on 11/11 -Bipap q HS and prn, at high risk for KLOBY with morbid obesity -NC during day -s/p right chest tube for pneumothorax -s/p steroids for angioedema -On Lasix for pulmonary edema. Transaminitis likely shocked liver - resolved Acute kidney injury likely secondary to vasomotor nephropathy, hypernatremia -Nephrology consulted, appreciate recommendations -Krishna replaced 11/05 urinary retention -FeNa 0.05 indicating pre-renal -SIERRA and hyponatremia resolved. Creatinine 1.0 on Lasix IV Shock cardiogenicsuspected sepsis -Fever was as high as 102 with a leukocytosis Blood, urine and sputum cultures negative -COVID-19 PCR negative -S/p empiric antibiotic therapy for possible pneumonia with Rocephin and azithromycin () -S/p Levophed gtt for hypotension -Fever and leukocytosis resolved -Monitor WBC and temperature curve Acute Metabolic encephalopathy, agitation/anxiety -Etiology likely from a cardiac arrest, shock and cerebral hypoperfusion CT head no acute focal parenchymal lesion in the brain -Neurology consulted, appreciate recommendations -EEG and MRI noted, Neuro recommend to cut down on sedation as possible Mental status significantly improved, currently fairly alert and oriented. Answers appropriately. Acute DVT in the left posterior tibial vein and bilateral peroneal veins, Anemia, retroperitoneal bleed -D-dimer greater than 10,000 -CTA chest with no evidence of PE -Bilateral lower extremity ultrasound positive for DVT -Heparin gtt on hold d/t anemia, received PRBC x4 -vasuclar surgery consulted, appreciate recommendations -recommended multiphasic CT angio of the abdomen and pelvis with and without contrast if H/H drops and did not recommend IVC filter at this time as the DVTs are infrapopliteal and recommends a follow-up DVT study weekly for 2 weeks. Repeat venous duplex ultrasound on 11/21 showed progression of left peroneal DVT extending into popliteal vein. Vascular surgery completed IVC filter placement on 11/22. -Trend CBC -SCDs to BLE while in bed -Transfuse hemoglobin less than 7 -Monitor for signs of bleeding -Hemoglobin stable, 8.6 Hypertension, not able be controlled Increase losartan 200 mg daily and add hydralazine as needed. Hyperglycemia ,resolved) -Avoid hypoglycemia -Hbg A1C 6.7 -SSI and lantus q hs (titrate as needed) -Accu-Cheks q. 6 Morbid obesity High risk for KOLBY On nightly BiPAP Deconditioning PT/OT Hospital Course to Date: 10/30: Intubated and sedated, on fentanyl gtt. Open eyes spontaneously but does not follow any commands. On vasopressors, titrate as tolerated for MAP above 65. Patient febrile overnight, continue empiric IV Abx, culture data and COVID PCR pending. Patient is also s/p CT placement due to spontaneous pneumothorax. 2D echo is pending and Cardiology is consulted. 10/31: Patient remains intubated and following commands. Levophed drip stopped and potassium repleted. Patient started on tube feeding. Remains in soft bilateral restraints. 11/01: RN noted ST changes on BSM and 12 lead EKG obtained which showed ST. Given Ativan 1mg for agitation as she is maxed on fentanyl drip and IV push fentanyl did not seem to help. Patient was started on CPAP this morning by RT but remained on fentanyl drip and was having periods of apnea. Plan was to retry CPAP again in the p.m. with sedation off. 11/02: Rate increased r/t hypercapnea on ABG, sedation reduced. Given kionex for hyperkalemia and was started on levophed overnight for hypotension. 11/03: Overnight patient had tachycardia and was given Cardizem and Lopressor. Lopressor was repeated in the a.m. due to tachycardia. Patient will be started on amiodarone with a bolus per cardiology. Patient started on normal saline per liter per [facility] and steroids for angioedema. Noted to have bright red blood when suctioned from oh ETT. Remains on heparin drip as H/H is stable for now. Will reevaluate. Fentanyl drip was restarted last night due to agitation. Dr. Flores updated family today 11/04: Patient was sedated on fentanyl however off sedation is able to follow commands, a.m. labs completed in the p.m. and show hyperkalemia with increased renal function studies. Nephrology, neurology consulted by [facility]. Given Kayexalate, insulin and D50 for hyperkalemia. Patient remains on amiodarone. 11/05: Patient needed to be sedated on fentanyl again to today. overnight krishna was replaced. Hyperkalemia->given kionex 60 for 5.6. Repeat K 6-> Dr. Grant informed and requested bumex, kionex, insulin, d50, calcium gluconate and sodium bicarb with repeat BMP in 2 hours which were placed. HR remains elevated. 11/06: Patient remained in atrial fibrillation/atrial flutter with heart rate in the 150s despite being on amnio drip and was given amnio bolus, Cardizem bolus and started on Cardizem drip by cardiology. Patient is on beta-blockers p.o. scheduled and to feedings changed to Nepro. Kayexalate was given in the morning by nephrology due to hyperkalemia. 11/07: Patient is only responsive to mild stimuli, precedex added in an attempt to wean off fentanyl gtt to better assess her mental status. Neurology also on consult, pending MRI and EEG. Patient remains in Aflutter this am, HR in the 80 to 90s, still on amiodarone and heparin gtt. 11/08: Fentanyl gtt is off, only on precedex gtt. Patient is still not following any commands. MRI brain and EEG completed. Neuro recommendations noted, sedatives agents decreased. FWF added for hypernatremia and low K repleted, repe at labs ordered. Placed a call and spoke with patient's daughter, Eva Brown . She was updated on patient's conditions and status. All questions and concerns were voiced at this time. 11/09: Patient is awake and alert this am, following commands and appropriate. Remains on precedex gtt, plan for possible PST today. Hypertensive overnight, meds adjusted by Cardio and PRN Hydralazine added for SBP greater than 160. CT dislodged overnight, CXR is stable with no significant change. F/U CXR in the am. Patient's daughter, Eva Brown, visited with patient. She was updated on patient's status and goal of care for today. All questions and concerns were voiced at this time. 11/10: Mentation remains intact, still on precedex gtt. This am CXR noted still with fluid overload s/p X1 dose of IV lasix, good response from IV lasix overnight. Hypernatremia improved, D5W d/dayday. Still with persistent hypokalemia, continue electrolytes replacement and frequent lab check. Daily IV lasix and aldactone added by Cardio. Patient is also with persistent low grade fevers overnight, leukocytosis with mild improvement this am. Will get a repeat sputum culture, hold off on IV abx for now. Consider ID consult if fevers and leukocytosis persist. Patient tolerated PST X4hrs yesterday. PST again today, plan to wean to extubate if tolerated. 11/11: IAM overnight. Off precedex gtt and tolerated PST this am. Plan to wean to extubate today. Additional IV lasix given, plan to keep patient at a net negative balance for better lung compliance. F/U CXR in the am. K improved this am, repeat BMP this afternoon since diuresing. Remains with low grade fevers, leukocytosis downtrending, will continue to monitor. Speech/PT/OT ordered 11/12: S/p extubation, now stable on 3L NC. This am CXR noted with no significant changes, lasix changed to IV X4days BID. Drop in H&H this am, and Lt. flank ecchymosis noted. Heparin gtt on hold for now and orders placed for 1 unit of PRBCs and Ct Abd/Pelvis w/o con to r/o retroperitoneal bleed. Pending speech swallow eval, keep patient NPO for now. Patient is stable for IMCU status 11/13: Patient with increased WOB and tachycardia this am, patient was placed on Bipap and precedex gtt was resumed. CXR with mild improvement. CT Abd/Pelvis also reviewed large hematomas noted at the Lt. retroperitoneum and left posterior lateral abdominal wall. Heparin gtt is already on hold, patient is hemodynamically stable. Vascular Surgery consulted for possible IVC filter eval. Patient s/p 2units of PRBCs, will continue to trend H&H and transfuse if hbg is less than 7. Worsening renal function this am, IF diuretic on hold for now. Patient is also febrile with spike in wbcs most likely reactive to bleed, will panculture and hold off on IV Abx for now. Patient also failed speech bedside swallow eval yesterday, NGT in placed plan to resume enteral nutrition 11/14: Patient had bilateral lower extremity Doppler ultrasound and vascular surgery has recommended multiphasic CT angio of the abdomen and pelvis with and without contrast if H/H drops and does not recommend IVC filter at this time as the DVTs are infrapopliteal and recommends a DVT study weekly for 2 weeks. FWF 250 q4 ml per nephro. Started on as needed Xanax and p.o. amiodarone. She did not pass her ST evaluation today. Will be transferred to [facility]. 11/15: Resting comfortably on encounter. Speech cleared for pureed diet. Remains on 3l satting 98 % on bedside encounter. Does not appear to be in respiratory distress. Will continue to hold AC, No ivc filter planned at this time. qweekly doppler to monitor for migration of DVT per vascular. If demonstrated, will consider IVC filter. CBC ordered for tomorrow, will continue monitoring in light of retroperitoneal hematoma. FWF increased by nephrology to 350cc q4hr d/t hypernatremia. UOP/renal function both improved. D/w cardiology, will continue amiodorone an additional 24hrs. Plan to change dosing of metoprolol. Continue to wean off of precedex. Continue xanax scheduled for anxiety. physical therapy recs noted, fernanda / ltac will discuss with CM. Continue IMCU monitoring. 11/16: Pulmonary congestion this AM. CXR ordered. Lasix 40 mg IV x 1 order this AM. Will monitor for 24 hrs. potential downgrade to medical floor tomorrow. 11/17: Persisting pulmonary congestion, was on bipap overnight into this AM. Will order additional lasix 40 mg IV x 2. CXR ordered for AM. Possible downgrade to floor tomorrow. Anticipate d/c sunday. 11/18: Patient seen and examined, continue weaning, will continue diuresis BID, discussed with daughter. 11/19: Patient seen and examined this morning doing well no acute distress noted. Lasix was increased to twice daily to 20 mg IV. Clinically improving. Patient will be transferred to telemetry today can be switched to Lasix p.o. twice daily in a.m. She has her weekly Doppler of lower extremity tomorrow vascular is following for this. She was taken off anticoagulation secondary to retroperitoneal bleed., The anticoagulation was started initially for atrial fibrillation and an infrapopliteal DVT. During her hospital stay she had a prolonged ventilator management and was successfully weaned off. She also received a total of 4 units of packed red blood cell. Hemoglobin has remained stable. Anticipate discharge in next 48 hours if continues to clinically stay stable. : Transferred from ICU on 11/19. Progressive improving. Currently awake and oriented. O2 weaned to 4 L. Hemodynamically stable. BP control being optimized. MiraLAX for constipation. Hemoglobin stable on the heparin infusion, being monitored closely with history of retroperitoneal bleed. 11/21: Patient remains mostly bedridden. She is awake and oriented on 2 L of O2. Repeat ultrasound showed extension of left peroneal DVT into popliteal vein. Heparin was discontinued for significant retroperitoneal bleed and off anticoagulation since. Vascular surgery plan for placement of IVC filter tomorrow. Patient is chest pains, palpitations, hemoptysis. She has some cough. Left lower extremity pain likely from DVT better today. Discussed with the patient, nursing staff and vascular surgery. 11/22: The infrapopliteal vein thrombosis has propagated to the left popliteal vein. Vascular surgery to perform IVC filter placement today. 11/23: Vascular surgery placed IVC filter yesterday. Continue metoprolol 100 mg p.o. twice daily, Aldactone 25 mg p.o. daily and losartan 25 mg p.o. daily. Patient still requiring BiPAP (IPAP18, EPAP8) with FiO2 of 30%. Continue to wean oxygen per pulmonary recommendations. Nurse reports patient is having vaginal bleeding. We will check serial CBC and pelvic ultrasound 11/24: I discussed with cardiology yesterday the need for a LifeVest. LifeVest is ordered and pending. Patient is s/p IVC filter placement. Continue metoprolol 100 mg p.o. twice daily, Aldactone 25 mg p.o. daily and losartan 25 mg p.o. da amy. Patient still requiring BiPAP (IPAP18, EPAP8) with FiO2 of 30%. Continue to wean oxygen per pulmonary recommendations. No further reports of vaginal bleeding. Pelvic ultrasound negative 11/25: Awaiting for LifeVest. Patient is s/p IVC filter placement. Continue metoprolol 100 mg p.o. twice daily, Aldactone 25 mg p.o. daily and losartan 25 mg p.o. daily. Patient still requiring BiPAP (IPAP18, EPAP8) with FiO2 of 30%. Continue to wean oxygen per pulmonary recommendations. 11/26: Physical therapy recommends subacute rehab. Still awaiting LifeVest. Patient is s/p IVC filter placement. Continue metoprolol 100 mg p.o. twice daily, Aldactone 25 mg p.o. daily and losartan 25 mg p.o. daily. Patient still requiring BiPAP (IPAP18, EPAP8) with FiO2 of 30% at night. Continue to wean oxygen per pulmonary recommendations. Patient currently with 2 L O2. 11/27: Physical therapy recommends subacute rehab. Patient has a LifeVest. Patient's left lower extremity pain likely related to DVT. Continue pain control. Continue metoprolol 100 mg p.o. twice daily, Aldactone 25 mg p.o. daily and losartan 25 mg p.o. daily. Patient still requiring BiPAP (IPAP18, EPAP8) with FiO2 of 30% at night. 11/28: Physical therapy recommends subacute rehab. Patient has a LifeVest. Patient continues to complain of left lower extremity pain which makes it very difficult for ambulation. Continue Percocet for pain control. Add neurontin for possible neuropathy. Etiology is likely secondary to DVT. Continue metoprolol 100 mg p.o. twice daily, Aldactone 25 mg p.o. daily and losartan 25 mg p.o. daily. Patient still requiring BiPAP (IPAP18, EPAP8) with FiO2 of 30% at night. Repeated Doppler US of LLE and will ask vascular surgery to revisit. 11/29; worsening lower extremity DVTs, vascular following, on heparin drip 11/30; low-grade fever, leukocytosis, shortness of breath, chest x-ray possible left-sided pneumonia/possible healthcare associated pneumonia Blood cultures already sent, empiric antibiotic cefepime[renal dose confirmed with pharmacist] ID consult if needed 12/01; gram-positive bacteremia preliminary, add vancomycin 1 dose, repeat cultures, consult ID Worsening renal function, nephrology initiated hemodialysis today, patient is critically ill, very poor prognosis, with multiple comorbidities And critical issues. Patient Care Provider recommendations noted and appreciated 12/02; Gram positive bacteremia/possible HCAP and sepsis, on cefepime and 1 dose Vanco. Nephrology initiated hemodialysis, ID consult. Patient is hypotensive, pulmonary critical recommended transfer to ICU and start vasopressors for close observation overnight. Dr. Padron discussed with patient's daughter over patient's telephone and discussed in detail patient's condition, new developments sepsis, renal failure on hemodialysis anticoagulation for DVT and severe cardiomyopathy, also discussed poor prognosis, and the plans of transferring the patient to ICU for close observation. Many questions, and answered all of them. dr. Padron also discussed with granddaughter at the bedside and patient was moved to ICU, She had numerous questions answered all of them and discussed the current co ndition prognosis and treatment plan. She verbalized understanding 12/03: Patient was transferred to ICU yesterday evening for hypotension however she did not need to be started on any vasopressin therapy. Patient is on p.o. midodrine and all her antihypertensives have been held. She also received albumin bolus. Patient will be transferred to the floor today. Still complains of bilateral lower extremity pain. Patient is on cefepime and she is scheduled for dialysis today. 12/04: Some complaint of leg pain. Percocet given for pain control. Patient is very deconditioned, will need aggressive PT. Will work on d/c planning with cm. 12/05: Patient does not appear to be in distress this AM. tachycardic hr on encounter and overnight, was given diltiazem by treating and pumping supervisor. Cardiology initiated metoprolol and amiodorone on patient this morning. She denies any pain except for discomfort in left lower extremity. Controlled with percocet. She also states that she does not have any urine output and has been constipated. Will order bowel regimen. Discharge needs discussed with CM which include Lifevest, BIPAP for nightly use, and possible set up for dialysis. She was visiting on a visa to the from [place] however is technically a citizen of [place] which makes placement a continued challenge. 12/06: Case management reports patient will need LifeVest, walker, CPAP and arrangements for outpatient hemodialysis. However, patient is uninsured. I discussed with the daughter Eva plans for home hospice. Eva reports that she is willing to have hospice to obtain additional resources but is not wanting palliative care/comfort measures. 12/07: Awaiting LifeVest and outpatient HD arrangements. I d/w CM discharge planning. Pt still with heparin drip but amiodarone changed to p.o. 200mg BID. Cont. Metoprolol 50mg BID. Hold LAYO and ARB for renal fxn. Patient for outpatient ischemic evaluation per Cardiology. Leukocytosis likely related to retroperitoneal hematoma. ID wants to monitor off abx. 12/08: Awaiting LifeVest and outpatient HD arrangements. I d/w CM discharge planning. Pt still with heparin drip. Await cardiology recommendations to transition to p.o. anticoagulation. Patient for outpatient ischemic evaluation per Cardiology. Leukocytosis likely related to retroperitoneal hematoma. Continue to monitor off antibiotics. Continue volume management per nephrology with hemodialysis 12/09: Patient with PermCath placement today. Nephrology reports patient hypotensive during hemodialysis and started 10 mg of midodrine for hypotension. Losartan discontinued. Continue to obtain daily weights and Strict I/O's. Renally dose medications and avoid nephrotoxic agents. Patient for outpatient ischemic evaluation per Cardiology. Leukocytosis likely related to retroperitoneal hematoma. Continue to monitor off antibiotics. Awaiting LifeVest and outpatient HD arrangements. 12/10: Continue hemodialysis per nephrology recommendations. We will discontinue heparin drip and start Eliquis 5 mg p.o. twice daily for anticoagulation. Blood pressure appears to be improved. Continue midodrine. Continue to obtain daily weights and Strict I/O's. Renally dose medications and avoid nephrotoxic agents. Patient for outpatient ischemic evaluation per Cardiology. Leukocytosis likely related to retroperitoneal hematoma. Continue to monitor off antibiotics. Awaiting LifeVest and outpatient HD arrangements. 12/11: Cardiology plans for Lexiscan in a.m. Continue hemodialysis per nephrology recommendations. We will discontinue heparin drip and start Eliquis 5 mg p.o. twice daily for anticoagulation. Blood pressure appears to be improved. Continue midodrine. Continue to obtain daily weights and Strict I/O's. Renally dose medications and avoid nephrotoxic agents. History Interval history: No new issues overnight. Hospitalist Physical - Constitutional Vitals: Temp Pulse Resp BP Pulse Ox 97.7 F 52 L 16 117/53 100 12/11/21 08:08 12/11/21 08:08 12/11/21 08:08 12/11/21 08:08 12/11/21 08:18 General appearance: Present: no acute distress, well-nourished, obese (Morbidly obese), other (Chronically ill looking) - EENT Eyes: Present: PERRL, EOM intact ENT: hearing intact, clear oral mucosa, dentition normal - Neck Neck: Present: supple, normal ROM - Respiratory Respiratory effort: normal Respiratory: bilateral: CTA - Cardiovascular Rhythm: regular Heart Sounds: Present: S1 & S2. Absent: gallop, rub - Extremities Extremities: no ischemia, No edema, Full ROM - Abdominal General gastrointestinal: soft, non-tender, non-distended, normal bowel sounds - Integumentary Integumentary: Present: clear, warm, dry - Neurologic Neurologic: CNII-XII intact, moves all extremities HEART Score - HEART Score Troponin: Troponin T 1.150 ng/mL (0.00-0.029) H* D 10/29/21 22:34 Results - Labs CBC & Chem 7: 12/10/21 05:22 12/11/21 05:21 Labs: Laboratory Last Values WBC 14.5 K/mm3 (4.5-11.0) H 12/10/21 05:22 RBC 2.65 M/mm3 (3.65-5.03) L 12/10/21 05:22 Hgb 7.7 gm/dl (10.1-14.3) L 12/10/21 05:22 Hct 23.6 % (30.3-42.9) L 12/10/21 05:22 MCV 89 fl (79-97) 12/10/21 05:22 MCH 29 pg (28-32) 12/10/21 05:22 MCHC 33 % (30-34) 12/10/21 05:22 RDW 17.0 % (13.2-15.2) H 12/10/21 05:22 Plt Count 119 K/mm3 (140-440) L 12/10/21 05:22 Lymph % (Auto) 11.1 % (13.4-35.0) L 11/29/21 13:51 Mora % (Auto) 15.5 % (0.0-7.3) H 11/29/21 13:51 Eos % (Auto) 1.0 % (0.0-4.3) 11/29/21 13:51 Baso % (Auto) 0.6 % (0.0-1.8) 11/29/21 13:51 Lymph # (Auto) 1.4 K/mm3 (1.2-5.4) 11/29/21 13:51 Mora # (Auto) 2.0 K/mm3 (0.0-0.8) H 11/29/21 13:51 Eos # (Auto) 0.1 K/mm3 (0.0-0.4) 11/29/21 13:51 Baso # (Auto) 0.1 K/mm3 (0.0-0.1) 11/29/21 13:51 Add Manual Diff Complete 12/10/21 05:22 Total Counted 100 12/10/21 05:22 Seg Neutrophils % 71.8 % (40.0-70.0) H 11/29/21 13:51 Seg Neuts % (Manual) 73.0 % (40.0-70.0) H 12/10/21 05:22 Band Neutrophils % 12.0 % 12/10/21 05:22 Lymphocytes % (Manual) 7.0 % (13.4-35.0) L 12/10/21 05:22 Reactive Lymphs % (Man) 0 % 12/10/21 05:22 Monocytes % (Manual) 1.0 % (0.0-7.3) 12/10/21 05:22 Eosinophils % (Manual) 1.0 % (0.0-4.3) 12/10/21 05:22 Basophils % (Manual) 2.0 % (0.0-1.8) H 12/10/21 05:22 Metamyelocytes % 0 % 12/10/21 05:22 Myelocytes % 4.0 % 12/10/21 05:22 Promyelocytes % 0 % 12/10/21 05:22 Blast Cells % 0 % 12/10/21 05:22 Nucleated RBC % 1.0 % (0.0-0.9) H 12/10/21 05:22 Seg Neutrophils # 9.3 K/mm3 (1.8-7.7) H 11/29/21 13:51 Seg Neutrophils # Man 10.6 K/mm3 (1.8-7.7) H 12/10/21 05:22 Band Neutrophils # 1.7 K/mm3 12/10/21 05:22 Lymphocytes # (Manual) 1.0 K/mm3 (1.2-5.4) L 12/10/21 05:22 Abs React Lymphs (Man) 0.0 K/mm3 12/10/21 05:22 Monocytes # (Manual) 0.1 K/mm3 (0.0-0.8) 12/10/21 05:22 Eosinophils # (Manual) 0.1 K/mm3 (0.0-0.4) 12/10/21 05:22 Basophils # (Manual) 0.3 K/mm3 (0.0-0.1) H 12/10/21 05:22 Metamyelocytes # 0.0 K/mm3 12/10/21 05:22 Myelocytes # 0.6 K/mm3 12/10/21 05:22 Promyelocytes # 0.0 K/mm3 12/10/21 05:22 Blast Cells # 0.0 K/mm3 12/10/21 05:22 WBC Morphology Not Reportable 12/10/21 05:22 Hypersegmented Neuts Not Reportable 12/10/21 05:22 Hyposegmented Neuts Not Reportable 12/10/21 05:22 Hypogranular Neuts Not Reportable 12/10/21 05:22 Smudge Cells Not Reportable 12/10/21 05:22 Toxic Granulation Not Reportable 12/10/21 05:22 Toxic Vacuolation Not Reportable 12/10/21 05:22 Dohle Bodies Not Reportable 12/10/21 05:22 Pelger-Huet Anomaly Not Reportable 12/10/21 05:22 Manny Rods Not Reportable 12/10/21 05:22 Platelet Estimate Consistent w auto 12/10/21 05:22 Clumped Platelets Not Reportable 12/10/21 05:22 Plt Clumps, EDTA Not Reportable 12/10/21 05:22 Large Platelets Not Reportable 12/10/21 05:22 Giant Platelets Not Reportable 12/10/21 05:22 Platelet Satelliting Not Reportable 12/10/21 05:22 Plt Morphology Comment Not Reportable 12/10/21 05:22 RBC Morphology Not Reportable 12/10/21 05:22 Dimorphic RBCs Not Reportable 12/10/21 05:22 Polychromasia Not Reportable 12/10/21 05:22 Hypochromasia 1+ 12/10/21 05:22 Poikilocytosis Not Reportable 12/10/21 05:22 Anisocytosis 1+ 12/10/21 05:22 Microcytosis Not Reportable 12/10/21 05:22 Macrocytosis Not Reportable 12/10/21 05:22 Spherocytes Not Reportable 12/10/21 05:22 Pappenheimer Bodies Not Reportable 12/10/21 05:22 Sickle Cells Not Reportable 12/10/21 05:22 Target Cells Not Reportable 12/10/21 05:22 Tear Drop Cells Not Reportable 12/10/21 05:22 Ovalocytes Not Reportable 12/10/21 05:22 Helmet Cells Not Reportable 12/10/21 05:22 [place] Bodies Not Reportable 12/10/21 05:22 Kemp Rings Not Reportable 12/10/21 05:22 Fowler Cells Not Reportable 12/10/21 05:22 Bite Cells Not Reportable 12/10/21 05:22 Crenated Cell Not Reportable 12/10/21 05:22 Elliptocytes Not Reportable 12/10/21 05:22 Acanthocytes (Spur) Not Reportable 12/10/21 05:22 Rouleaux Not Reportable 12/10/21 05:22 Hemoglobin C Crystals Not Reportable 12/10/21 05:22 Schistocytes Not Reportable 12/10/21 05:22 Malaria parasites Not Reportable 12/10/21 05:22 Magdy Bodies Not Reportable 12/10/21 05:22 Hem Pathologist Commnt No 12/10/21 05:22 PT 17.2 Sec. (12.2-14.9) H 10/30/21 16:30 INR 1.27 (0.87-1.13) H 10/30/21 16:30 APTT 44.4 Sec. (24.2-36.6) H 10/30/21 16:30 D-Dimer > 43420 ng/mlDDU (0-234) H 10/30/21 Unknown Heparin Anti-Xa Level 0.85 U.I./ml (0.3-0.7) H 12/11/21 05:21 ABG pH 7.450 pH Units (7.350-7.450) 12/01/21 Unknown ABG pCO2 38.0 mm Hg 12/01/21 Unknown ABG pO2 88.9 mm Hg (80.0-90.0) 12/01/21 Unknown ABG HCO3 25.8 mmol/L (20.0-26.0) 12/01/21 Unknown ABG O2 Saturation 97.2 % (95.0-99.0) 12/01/21 Unknown ABG O2 Content 19.4 (0.0-44) 12/01/21 Unknown ABG Base Excess 1.9 mmol/L (-2.0-3.0) 12/01/21 Unknown ABG Hemoglobin 14.3 gm/dl (12.0-16.0) 12/01/21 Unknown ABG Carboxyhemoglobin 1.0 % (0.0-5.0) 12/01/21 Unknown ABG Methemoglobin 0.5 % (0.0-1.5) 12/01/21 Unknown Oxyhemoglobin 95.8 % (95.0-99.0) 12/01/21 Unknown FiO2 21 % 12/01/21 Unknown Sodium 129 mmol/L (137-145) L 12/11/21 05:21 Potassium 4.7 mmol/L (3.6-5.0) 12/11/21 05:21 Chloride 94.3 mmol/L (98-107) L 12/11/21 05:21 Carbon Dioxide 24 mmol/L (22-30) 12/11/21 05:21 Anion Gap 15 mmol/L 12/11/21 05:21 BUN 41 mg/dL (7-17) H 12/11/21 05:21 Creatinine 3.0 mg/dL (0.6-1.2) H 12/11/21 05:21 Estimated GFR 19 ml/min 12/11/21 05:21 BUN/Creatinine Ratio 14 % 12/11/21 05:21 Glucose 111 mg/dL (65-100) H 12/11/21 05:21 POC Glucose 113 mg/dL (70-105) H 12/10/21 20:56 Hemoglobin A1c 6.7 % (4-6) H 10/31/21 04:30 Lactic Acid 0.70 mmol/L (0.7-2.0) 10/31/21 15:45 Calcium 8.7 mg/dL (8.4-10.2) 12/11/21 05:21 Phosphorus 5.20 mg/dL (2.5-4.5) H 12/02/21 03:22 Magnesium 1.60 mg/dL (1.7-2.3) L 11/19/21 14:38 Ferritin 208.4 ng/mL (10.0-200.0) H 10/30/21 Unknown Total Bilirubin < 0.20 mg/dL (0.1-1.2) 11/06/21 02:35 AST 21 units/L (5-40) 11/06/21 02:35 ALT 77 units/L (7-56) H 11/06/21 02:35 Alkaline Phosphatase 84 units/L (35-129) 11/06/21 02:35 Ammonia 31.0 umol/L (25-60) 10/29/21 15:10 Lactate Dehydrogenase 469 units/L (91-180) H 10/30/21 Unknown Troponin T 1.150 ng/mL (0.00-0.029) H* D 10/29/21 22:34 C-Reactive Protein 13.40 mg/dL (0.00-1.30) H 10/30/21 Unknown Total Protein 6.3 g/dL (6.3-8.2) 11/06/21 02:35 Albumin 3.0 g/dL (3.9-5) L 11/06/21 02:35 Albumin/Globulin Ratio 0.9 % 11/06/21 02:35 Triglycerides 68 mg/dL (2-149) 10/29/21 19:40 Cholesterol 98 mg/dL (50-199) 10/29/21 19:40 LDL Cholesterol Direct 43 mg/dL (50-130) L 10/29/21 19:40 HDL Cholesterol 50 mg/dL (40-59) 10/29/21 19:40 Cholesterol/HDL Ratio 1.96 % 10/29/21 19:40 Procalcitonin 61.95 ng/mL (<0.15) 10/30/21 Unknown TSH 3.080 mlU/mL (0.270-4.200) 10/29/21 15:10 Urine Color Yellow (Yellow) 11/13/21 08:30 Urine Turbidity Slightly-cloudy (Clear) 11/13/21 08:30 Urine pH 6.0 (5.0-7.0) 11/13/21 08:30 Ur Specific [place] 1.010 (1.003-1.030) 11/13/21 08:30 Urine Protein <15 mg/dl mg/dL (Negative) 11/13/21 08:30 Urine Glucose (UA) Neg mg/dL (Negative) 11/13/21 08:30 Urine Ketones Tr mg/dL (Negative) 11/13/21 08:30 Urine Blood Sm (Negative) 11/13/21 08:30 Urine Nitrite Neg (Negative) 11/13/21 08:30 Urine Bilirubin Neg (Negative) 11/13/21 08:30 Urine Urobilinogen < 2.0 mg/dL (<2.0) 11/13/21 08:30 Ur Leukocyte Esterase Neg (Negative) 11/13/21 08:30 Urine WBC (Auto) < 1.0 /HPF (0.0-6.0) 11/13/21 08:30 Urine RBC (Auto) < 1.0 /HPF (0.0-6.0) 11/13/21 08:30 U Epithel Cells (Auto) < 1.0 /HPF (0-13.0) 11/13/21 08:30 Urine Mucus Few /HPF 10/29/21 18:15 Urine Eosinophils None seen (None Seen) 11/04/21 Unknown Urine Creatinine 190.9 mg/dL (0.1-20.0) H 11/04/21 Unknown Protein/Creatinin Ratio 0.90 11/04/21 Unknown Urine Sodium 10 mmol/L 11/04/21 Unknown Urine Total Protein 172 mg/dL (5-11.8) H 11/04/21 Unknown Salicylates < 0.3 mg/dL (2.8-20.0) L 10/29/21 15:10 Urine Opiates Screen Negative 10/29/21 18:15 Urine Methadone Screen Negative 10/29/21 18:15 Acetaminophen 5.0 ug/mL (10.0-30.0) L 10/29/21 15:10 Ur Barbiturates Screen Negative 10/29/21 18:15 Ur Phencyclidine Scrn Negative 10/29/21 18:15 Ur Amphetamines Screen Negative 10/29/21 18:15 U Benzodiazepines Scrn Negative 10/29/21 18:15 Urine Cocaine Screen Negative 10/29/21 18:15 U Marijuana (THC) Screen Negative 10/29/21 18:15 Drugs of Abuse Note Disclamer 10/29/21 18:15 Plasma/Serum Alcohol < 0.01 % (0-0.07) 10/29/21 15:10 Coronavirus (PCR) Negative (Negative) 10/30/21 Unknown Hepatitis A IgM Ab Non-reactive (NonReactive) 12/01/21 19:36 Hep Bs Antigen Non-reactive (Negative) 12/01/21 19:36 Hep B Core IgM Ab Non-reactive (NonReactive) 12/01/21 19:36 Hepatitis C Antibody Non-reactive (NonReactive) 12/01/21 19:36 Blood Type O POSITIVE 11/12/21 04:15 Antibody Screen Negative 11/12/21 04:15 Crossmatch See Detail 11/12/21 04:15 Krishna/IV: Voiding Method External Female Catheter Active Medications - Current Medications Current Medications: Generic Name Dose Route Start Last Admin Trade Name Freq PRN Reason Stop Dose Admin Acetaminophen 650 mg 10/29/21 17:04 11/12/21 22:53 Acetaminophen 650 Mg Rect Supp GA 650 mg Q6H PRN Administration Pain MILD(1-3)/Fever >100.5/NIEVES Acetaminophen 650 mg 11/19/21 16:35 12/11/21 09:15 Acetaminophen 325 Mg Tab PO 650 mg Q6HR PRN Administration PAIN Albumin Human 50 gm 03/11/22 11:00 12/02/21 11:55 Albumin Human 25% (25 Gm/100 Ml) Inj IV 50 gm ZACH PRN Administration Hypotension Alprazolam 0.25 mg 11/14/21 14:29 12/11/21 09:16 Alprazolam 0.25 Mg Tab PO 0.25 mg Q8H PRN Administration Anxiety Amiodarone HCl 200 mg 12/10/21 10:00 12/11/21 09:15 Amiodarone 200 Mg Tab PO 200 mg DAILY RAMON Administration Apixaban 5 mg 12/11/21 22:00 Apixaban 5 Mg Tab PO Q12HR [facility] Protocol Docusate Sodium 100 mg 11/18/21 15:00 12/11/21 09:23 Docusate Sodium 100 Mg Cap PO Not Given BID [facility] Epoetin [place]-epbx 10,000 unit 12/06/21 10:00 12/07/21 15:30 Epoetin [place]-Epbx 10,000 Unit/1 Ml Vial IV 10,000 unit ZACH PRN Administration hemodialysis Famotidine 10 mg 11/06/21 10:00 12/11/21 09:15 Famotidine 10 Mg Tab PO 10 mg BID [facility] Administration Gabapentin 100 mg 11/28/21 14:00 12/11/21 05:24 Gabapentin 100 Mg Cap PO 100 mg Q8HR RAMON Administration Heparin Sodium (Porcine) 4,000 unit 12/01/21 07:50 12/02/21 17:22 Heparin 10,000 Units/10 Ml Vial 40 unit/kg (4300 unit) 4,000 unit IV Administration Q6H PRN Anti-Xa Assay < 0.1 units/ml Hydrophilic Ointment 1 applic 10/29/21 14:29 11/09/21 08:51 Lip Therapy Vaseline TP 1 applic Q2HR PRN Administration Dry Lips Sodium Chloride 100 mls @ 999 mls/hr 12/01/21 14:44 Nacl 0.9% IV ZACH PRN Hypotension Insulin Human Lispro 0 unit 11/25/21 22:00 12/11/21 09:23 Insulin Lispro 100 Unit/Ml SUB-Q Not Given ACHS [facility] Protocol Lactulose 20 gm 11/18/21 14:43 12/06/21 15:26 Lactulose 20 Gm/30 Ml Oral Liqd PO 20 gm Q6H PRN Administration Constipation Melatonin 10 mg 11/22/21 17:31 12/10/21 22:19 Melatonin 5 Mg Tab PO 10 mg QHS PRN Administration Sleep Metoprolol Tartrate 100 mg 12/07/21 11:00 12/11/21 09:15 Metoprolol Tartrate 50 Mg Tab PO 100 mg BID RAMON Administration Midodrine 10 mg 12/01/21 12:00 12/11/21 09:15 Midodrine 5 Mg Tab PO 10 mg TID@0800,1200,1600 RAMON Administration Morphine Sulfate 1 mg 11/28/21 15:00 12/10/21 16:34 Morphine 2 Mg/1 Ml Inj IV 1 mg Q4H PRN Administration Pain, Moderate (4-6) Multi-Ingred Cream/Lotion/Oil/Oint 1 applic 10/29/21 14:29 11/06/21 09:25 Mineral Oil/Petrolatum, White Ophth Oint 3.5 Gm OU 1 applic Q4HR PRN Administration Dry Eye(s) Oxycodone/Acetaminophen 1 tab 11/27/21 14:31 12/11/21 04:53 Oxycodone /Acetaminophen 5-325mg Tab PO 1 tab Q4H PRN Administration Pain, Moderate (4-6) Polyethylene Glycol 17 gm 11/20/21 12:47 12/08/21 09:54 Polyethylene Glycol 3350 17 Gm Powder PO 17 gm QDAY PRN Administration Constipation Senna/Docusate Sodium 1 tab 11/16/21 22:00 12/11/21 09:23 Sennosides/Docusate Sodium 8.6/50 Mg Tab PO Not Given BID RAMON Sodium Chloride 10 ml 10/29/21 22:00 12/11/21 09:18 Sodium Chloride 0.9% 10 Ml Flush Syringe IV 10 ml BID RAMON Administration Sodium Chloride 10 ml 10/29/21 17:04 Sodium Chloride 0.9% 10 Ml Flush Syringe IV PRN PRN LINE FLUSH Nutrition/Malnutrition Assess - Dietary Evaluation Nutrition/Malnutrition Findings: Nutrition Notes Start: 10/30/21 09:50 Freq: Status: Active Protocol: Document 12/05/21 17:37 MEENU (Rec: 12/05/21 17:55 MEENU [email or web address]) Nutrition Notes Initial or Follow up Brief Note Current Diagnosis Acute Kidney Injury,Sepsis, Hypertension Other Pertinent Diagnosis s/p cardiac arrest, anemia Current Diet Renal -[facility] Soft- Diet + D Supplement (since D 12/02). Height 5 ft 10 in Weight 114.8 kg [place] Body Weight (kg) 68.18 BMI 36.3 Weight change and time frame No body weight change reported in 3 days. Weight Status Obese Subjective/Other Information RD consult for routine F/U on Dietary tolerance. Pt's PO intake of meals has improved to 75% and well tolerated, according to ADL notes. Pt still receiving vasopressors. Percent of energy/protein needs met: Prescribed Renal Diet provides for energy/protein needs (2, 072 Kcal/77 g) during LOS; additionally, Dietary Supplements will compensate for possible poor or insufficient PO intake of meals with 425 Kcal and 19 g of protein. Current % PO Good (75-100%) #1 Nutrition Diagnosis Inadequate oral intake Comments: Pt's PO intake of meals has been at 75%, and well tolerated, according to ADL notes. Diet advanced to Renal - mechanical soft-. Diagnosis Progress(for reassessment Improved documentation) Is patient on ventilator? No Is Patient Ambulatory and/or Out of Bed No REE-([facility]-confined to bed) 2120.952 Kcal/Kg value to use for calculation 14 Approximate Energy Requirements Using 1607 kcal/Kg Calculation Used for Recommendations Kcal/kg Additional Notes Protein: >1.2 g/Kg AdjBW; >110 g/day. Fluids: 1-1.5 L/day, or as per MD. Nutrition Intervention Change Diet Order: Continue Renal -mechanical soft- Diet. Add Supplement/Snack (indicate name/kcal Nepro once daily (vanilla) /protein ) Provides kCal: 425 Provides Protein (gm) 19 Goal #1 Compensate, through dietary supplementation, for possible poor or insufficient PO intake of meals during LOS. Goal #2 Facilitate PO intake of meals with mechanical modification during LOS. Goal #3 Maintain body weight within +/ -3% of admission body weight during LOS. Follow-Up By: 12/13/21 Additional Comments Continue monitoring food tolerance, %PO intake of meals , and BM.
[2021-12-11] MEDS: APIXABAN 5 MG TAB PO SCH (13:05)
[2021-12-11 13:59] LABS: Hematocrit 25.2 % (30.3-42.9); Hemoglobin 8.1 gm/dl (10.1-14.3); Mean Corpuscular HGB Conc 32 % (30-34); Mean Corpuscular Volume 91 fl (79-97); Platelet Count 182 K/mm3 (140-440); Red Blood Count 2.78 M/mm3 (3.65-5.03); Red Cell Distribution Width 17.7 % (13.2-15.2)
[2021-12-11 14:14] LABS: INR 0.92 (0.87-1.13)
[2021-12-11 14:18] LABS: Partial Thromboplastin Time 116.8 Sec. (24.2-36.6)
--- NOTE | 2021-12-11 22:43 | Progress Note ---
Assessment and Plan 66 YO Female with Obesity presents to ED for evaluation. Patient is intubated and on ventilatory support . Patient was attending [facility] services when the patient collapsed and lost consciousness. Witnesses began CPR. EMS was notified and upon arrival the patient was found to be in distress without perfusing cardiac rhythm. Patient initiated on ACLS protocol and subsequently intubated in the field and subsequent transported to [facility] for further care and evaluation of the aforementioned symptoms. The patient regained spontaneous ci rculation during transport. Patient seen and evaluated upon arrival and found to have acute hypoxemic respiratory failure, septic shock suspected secondary to aspiration pneumonia, metabolic acidosis, toxic metabolic encephalopathy, shock liver, and cardiac arrest with return of perfusing cardiac rhythm after initiation of ACLS protocol. Patient initiated on sepsis protocol as well as pneumonia protocol. Patient admitted to ICU. No reports of fever, chills, chest pain, palpitation, productive cough, skin rash, recent contact, known exposure to COVID-19. Patient has history of diabetes and hypertension. According to the chart review, patient has no history of smoking, alcohol or drug abuse. Patient eventually extubated. Patient transfered to Telemetry. Patient presently sleeping. on 2 litres O2. O2 saturation 98%. Patient Obese , No acute respiratory distress. Patient afebrile. Has leukocytosis. Blood pressure 131/82, pulse 121, Respirations 16. Chest xray done 11/18/21 reported Improving interstitial edema. Bilateral duplex study of legs 11/21/21 reported Acute occlusive thrombus is now visualized within the right peroneal veins. There is propagation of the left calf DVT into the popliteal vein on today's exam (near occlusive). CTA of chest:12/01/21 reported The exam is limited secondary to respiratory motion artifact. Low lung volumes. No central pulmonary thromboembolus is identified. The thoracic aorta is grossly unremarkable without aneurysm or dissection. Mild bibasilar atelectasis are present. Incidentally there are multiple healing anterior rib fractures involving the first, second, third, fourth, fifth, sixth and seventh ribs bilaterally. There is a nondisplaced fracture involving the left eighth rib. Patient presently on famotidine. Eliquis. DVT Management as per vascular surgery. Patients daughter at bed side. Explained patients respiratory status. - Patient Problems (1) Acute hypoxemic respiratory failure Current Visit: Yes Status: Acute Plan to address problem: Patient presently on 2 litres O2. O2 saturation 98%. No acute respiratory distress. (2) Cardiopulmonary arrest Current Visit: Yes Status: Acute Plan to address problem: S/P Resucitation to ROSC. (3) Atrial fibrillation and flutter Current Visit: Yes Status: Acute Plan to address problem: Management as per cardiology. Patient is on Eliquis. (4) Acute metabolic encephalopathy Current Visit: Yes Status: Acute Plan to address problem: Management as per primary care. (5) Acute kidney injury Current Visit: Yes Status: Acute Plan to address problem: Management as per nephrology. (6) DVT (deep venous thrombosis) Current Visit: Yes Status: Acute Qualifiers: Affected thrombotic vein of extremity: peroneal Plan to address problem: Patient is on Eliquis. Management as per vascular surgery. (7) Obesity hypoventilation syndrome Current Visit: Yes Status: Acute Plan to address problem: Recommend sleep study as out patient. Dietary consultion for weight reduction diet. Recommend BIPAP during night time PRN for day time sleepiness. (8) Pneumothorax, right Current Visit: Yes Status: Acute Plan to address problem: S/P chest tube placement and expansion of right lung. Subjective Date of service: 12/11/21 Principal diagnosis: AHRF; Cardiac arrest; R. pneumothorax; pneumonia; AMS; DVT's; SIERRA; Obesity Interval history: 66 YO Female with Obesity presents to ED for evaluation. Patient is intubated and on ventilatory support . Patient was attending [facility] services when the patient collapsed and lost consciousness. Witnesses began CPR. EMS was notified and upon arrival the patient was found to be in distress without perfusing cardiac rhythm. Patient initiated on ACLS protocol and subsequently intubated in the field and subsequent transported to [facility] for further care and evaluation of the aforementioned symptoms. The patient regained spontaneous circulation during transport. Patient seen and evaluated upon arrival and found to have acute hypoxemic respiratory failure, septic shock suspected secondary to aspiration pneumonia, metabolic acidosis, toxic metabolic encephalopathy, shock liver, and cardiac arrest with return of perfusing cardiac rhythm after initiation of ACLS protocol. Patient initiated on sepsis protocol as well as pneumonia protocol. Patient admitted to ICU. No reports of fever, chills, chest pain, palpitation, productive cough, skin rash, recent contact, known exposure to COVID-19. Patient has history of diabetes and hypertension. According to the chart review, patient has no history of smoking, alcohol or drug abuse. Patient eventually extubated. Patient transfered to Telemetry. Patient presently sleeping. on 2 litres O2. O2 saturation 98%. Patient Obese , No acute respiratory distress. Patient afebrile. Has leukocytosis. Blood pressure 131/82, pulse 121, Respirations 16. Chest xray done 11/18/21 reported Improving interstitial edema. Bilateral duplex study of legs 11/21/21 reported Acute occlusive thrombus is now visualized within the right peroneal veins. There is propagation of the left calf DVT into the popliteal vein on today's exam (near occlusive). CTA of chest:12/01/21 reported The exam is limited secondary to respiratory motion artifact. Low lung volumes. No central pulmonary thromboembolus is identified. The thoracic aorta is grossly unremarkable without aneurysm or dissection. Mild bibasilar atelectasis are present. Incidentally there are multiple healing anterior rib fractures involving the first, second, third, fourth, fifth, sixth and seventh ribs bilaterally. There is a nondisplaced fracture involving the left eighth rib. Patient presently on famotidine. [place]. DVT Management as per vascular surgery. Daughter at bed side, explained patients respiratory status. Objective Vital Signs - 12hr 12/11/21 12/11/21 12/11/21 12:00 16:00 16:26 Temperature 98.0 F 97.7 F Pulse Rate 68 89 42 L Respiratory 19 18 Rate Respiratory Rate [Bilateral Lower] Blood Pressure 116/72 137/78 O2 Sat by Pulse 99 100 Oximetry 12/11/21 12/11/21 12/11/21 20:00 20:04 20:59 Temperature 97.7 F Pulse Rate 121 H Respiratory 16 Rate Respiratory 18 Rate [Bilateral Lower] Blood Pressure 131/82 O2 Sat by Pulse 98 98 Oximetry 12/11/21 12/11/21 12/11/21 21:24 21:45 21:49 Temperature Pulse Rate 96 H 74 Respiratory 16 Rate Respiratory Rate [Bilateral Lower] Blood Pressure 131/82 O2 Sat by Pulse 100 100 Oximetry Constitutional: no acute distress, asleep, other (elderly obese female with mildly increased respiratory effort at rest ) Eyes: non-icteric ENT: oropharynx moist Neck: supple, no lymphadenopathy, no JVD, other (large circumference) Effort: normal Ascultation: Bilateral: diminished breath sounds, rhonchi (bases) Percussion: Bilateral: not dull Cardiovascular: regular rate and rhythm, other (no R/M) Gastrointestinal: normoactive bowel sounds, soft, non-tender, other (obese) Integumentary: normal, other (Left flank ecchymosis with induration) Extremities: no cyanosis, pulses normal, no ischemia or petechiae, edema (2+) Neurologic: normal mental status, non-focal exam (grossly), pupils equal and round Psychiatric: other (Patient sleeping at this time.) CBC and BMP: 12/11/21 13:08 12/11/21 13:08 ABG, PT/INR, D-dimer: ABG ABG pH 7.450 pH Units (7.350-7.450) 12/01/21 Unknown ABG pCO2 38.0 mm Hg 12/01/21 Unknown ABG pO2 88.9 mm Hg (80.0-90.0) 12/01/21 Unknown ABG O2 Saturation 97.2 % (95.0-99.0) 12/01/21 Unknown PT/INR, D-dimer PT 13.4 Sec. (12.2-14.9) 12/11/21 13:08 INR 0.92 (0.87-1.13) 12/11/21 13:08 D-Dimer > 74756 ng/mlDDU (0-234) H 10/30/21 Unknown Abnormal lab findings: Abnormal Labs 10/29/21 10/29/21 10/29/21 15:10 15:10 15:10 WBC 27.8 H RBC Hgb Hct MCH 27 L RDW Plt Count Lymph % (Auto) Emery % (Auto) Lymph # (Auto) Emery # (Auto) Seg Neutrophils % Seg Neuts % (Manual) 78.0 H Lymphocytes % (Manual) 10.0 L Monocytes % (Manual) Basophils % (Manual) Nucleated RBC % Seg Neutrophils # Seg Neutrophils # Man 21.7 H Lymphocytes # (Manual) Monocytes # (Manual) 1.4 H Eosinophils # (Manual) Basophils # (Manual) PT INR APTT D-Dimer Heparin Anti-Xa Level ABG pH ABG pO2 ABG HCO3 ABG O2 Saturation ABG Base Excess ABG Hemoglobin Oxyhemoglobin Sodium Potassium Chloride Carbon Dioxide BUN Creatinine Glucose POC Glucose Hemoglobin A1c Lactic Acid 6.80 H* Calcium Phosphorus Magnesium Ferritin AST ALT Alkaline Phosphatase Lactate Dehydrogenase Troponin T 0.089 H C-Reactive Protein Total Protein Albumin LDL Cholesterol Direct Urine Creatinine Urine Total Protein Salicylates Acetaminophen Crossmatch 10/29/21 10/29/21 10/29/21 15:10 15:10 15:10 WBC RBC Hgb Hct MCH RDW Plt Count Lymph % (Auto) Emery % (Auto) Lymph # (Auto) Emery # (Auto) Seg Neutrophils % Seg Neuts % (Manual) Lymphocytes % (Manual) Monocytes % (Manual) Basophils % (Manual) Nucleated RBC % Seg Neutrophils # Seg Neutrophils # Man Lymphocytes # (Manual) Monocytes # (Manual) Eosinophils # (Manual) Basophils # (Manual) PT INR APTT D-Dimer Heparin Anti-Xa Level ABG pH ABG pO2 ABG HCO3 ABG O2 Saturation ABG Base Excess ABG Hemoglobin Oxyhemoglobin Sodium 136 L Potassium 2.8 L* Chloride 93.4 L Carbon Dioxide 20 L BUN Creatinine Glucose 330 H POC Glucose Hemoglobin A1c Lactic Acid Calcium Phosphorus Magnesium Ferritin AST 1013 H ALT 1289 H Alkaline Phosphatase 246 H Lactate Dehydrogenase Troponin T C-Reactive Protein Total Protein Albumin LDL Cholesterol Direct Urine Creatinine Urine Total Protein Salicylates < 0.3 L Acetaminophen 5.0 L Crossmatch 10/29/21 10/29/21 10/29/21 15:11 16:01 19:29 WBC RBC Hgb Hct MCH RDW Plt Count Lymph % (Auto) Emery % (Auto) Lymph # (Auto) Emery # (Auto) Seg Neutrophils % Seg Neuts % (Manual) Lymphocytes % (Manual) Monocytes % (Manual) Basophils % (Manual) Nucleated RBC % Seg Neutrophils # Seg Neutrophils # Man Lymphocytes # (Manual) Monocytes # (Manual) Eosinophils # (Manual) Basophils # (Manual) PT INR APTT D-Dimer Heparin Anti-Xa Level ABG pH 7.307 L ABG pO2 64.1 L ABG HCO3 ABG O2 Saturation 90.8 L ABG Base Excess -2.9 L ABG Hemoglobin Oxyhemoglobin 89.3 L Sodium Potassium Chloride Carbon Dioxide BUN Creatinine Glucose POC Glucose Hemoglobin A1c Lactic Acid 2.60 H* Calcium Phosphorus Magnesium 2.90 H Ferritin AST ALT Alkaline Phosphatase Lactate Dehydrogenase Troponin T C-Reactive Protein Total Protein Albumin LDL Cholesterol Direct Urine Creatinine Urine Total Protein Salicylates Acetaminophen Crossmatch 10/29/21 10/29/21 10/30/21 19:40 22:34 04:30 WBC 16.2 H RBC Hgb Hct MCH 26 L RDW 15.5 H Plt Count Lymph % (Auto) 6.2 L Emery % (Auto) Lymph # (Auto) 1.0 L Emery # (Auto) 0.9 H Seg Neutrophils % 88.1 H Seg Neuts % (Manual) Lymphocytes % (Manual) Monocytes % (Manual) Basophils % (Manual) Nucleated RBC % Seg Neutrophils # 14.2 H Seg Neutrophils # Man Lymphocytes # (Manual) Monocytes # (Manual) Eosinophils # (Manual) Basophils # (Manual) PT INR APTT D-Dimer Heparin Anti-Xa Level ABG pH ABG pO2 ABG HCO3 ABG O2 Saturation ABG Base Excess ABG Hemoglobin Oxyhemoglobin Sodium Potassium Chloride Carbon Dioxide BUN Creatinine Glucose POC Glucose Hemoglobin A1c Lactic Acid Calcium Phosphorus Magnesium Ferritin AST ALT Alkaline Phosphatase Lactate Dehydrogenase Troponin T 1.950 H* D 1.150 H* D C-Reactive Protein Total Protein Albumin LDL Cholesterol Direct 43 L Urine Creatinine Urine Total Protein Salicylates Acetaminophen Crossmatch 10/30/21 10/30/21 10/30/21 04:30 04:35 05:45 WBC RBC Hgb Hct MCH RDW Plt Count Lymph % (Auto) Emery % (Auto) Lymph # (Auto) Emery # (Auto) Seg Neutrophils % Seg Neuts % (Manual) Lymphocytes % (Manual) Monocytes % (Manual) Basophils % (Manual) Nucleated RBC % Seg Neutrophils # Seg Neutrophils # Man Lymphocytes # (Manual) Monocytes # (Manual) Eosinophils # (Manual) Basophils # (Manual) PT INR APTT D-Dimer Heparin Anti-Xa Level ABG pH ABG pO2 69.5 L ABG HCO3 ABG O2 Saturation ABG Base Excess -2.7 L ABG Hemoglobin Oxyhemoglobin 94.7 L Sodium Potassium Chloride Carbon Dioxide 21 L BUN Creatinine Glucose 159 H POC Glucose 151 H Hemoglobin A1c Lactic Acid Calcium 7.9 L D Phosphorus Magnesium Ferritin AST 461 H ALT 686 H Alkaline Phosphatase 130 H Lactate Dehydrogenase Troponin T C-Reactive Protein Total Protein 5.6 L D Albumin 3.2 L LDL Cholesterol Direct Urine Creatinine Urine Total Protein Salicylates Acetaminophen Crossmatch 10/30/21 10/30/21 10/30/21 11:24 15:59 16:30 WBC RBC Hgb Hct MCH RDW Plt Count Lymph % (Auto) Emery % (Auto) Lymph # (Auto) Emery # (Auto) Seg Neutrophils % Seg Neuts % (Manual) Lymphocytes % (Manual) Monocytes % (Manual) Basophils % (Manual) Nucleated RBC % Seg Neutrophils # Seg Neutrophils # Man Lymphocytes # (Manual) Monocytes # (Manual) Eosinophils # (Manual) Basophils # (Manual) PT 17.2 H INR 1.27 H APTT 44.4 H D-Dimer Heparin Anti-Xa Level ABG pH ABG pO2 ABG HCO3 ABG O2 Saturation ABG Base Excess ABG Hemoglobin Oxyhemoglobin Sodium Potassium Chloride Carbon Dioxide BUN Creatinine Glucose POC Glucose 153 H 109 H Hemoglobin A1c Lactic Acid Calcium Phosphorus Magnesium Ferritin AST ALT Alkaline Phosphatase Lactate Dehydrogenase Troponin T C-Reactive Protein Total Protein Albumin LDL Cholesterol Direct Urine Creatinine Urine Total Protein Salicylates Acetaminophen Crossmatch 10/30/21 10/30/21 10/30/21 23:00 Unknown Unknown WBC RBC Hgb Hct MCH RDW Plt Count Lymph % (Auto) Emery % (Auto) Lymph # (Auto) Emery # (Auto) Seg Neutrophils % Seg Neuts % (Manual) Lymphocytes % (Manual) Monocytes % (Manual) Basophils % (Manual) Nucleated RBC % Seg Neutrophils # Seg Neutrophils # Man Lymphocytes # (Manual) Monocytes # (Manual) Eosinophils # (Manual) Basophils # (Manual) PT INR APTT D-Dimer > 96187 H Heparin Anti-Xa Level 0.82 H ABG pH ABG pO2 ABG HCO3 ABG O2 Saturation ABG Base Excess ABG Hemoglobin Oxyhemoglobin Sodium Potassium Chloride Carbon Dioxide BUN Creatinine Glucose POC Glucose Hemoglobin A1c Lactic Acid Calcium Phosphorus Magnesium Ferritin 208.4 H AST ALT Alkaline Phosphatase Lactate Dehydrogenase Troponin T C-Reactive Protein Total Protein Albumin LDL Cholesterol Direct Urine Creatinine Urine Total Protein Salicylates Acetaminophen Crossmatch 10/30/21 10/31/21 10/31/21 Unknown 04:30 04:30 WBC 14.4 H RBC Hgb Hct MCH 26 L RDW Plt Count Lymph % (Auto) Emery % (Auto) Lymph # (Auto) Emery # (Auto) Seg Neutrophils % Seg Neuts % (Manual) Lymphocytes % (Manual) Monocytes % (Manual) Basophils % (Manual) Nucleated RBC % Seg Neutrophils # Seg Neutrophils # Man Lymphocytes # (Manual) Monocytes # (Manual) Eosinophils # (Manual) Basophils # (Manual) PT INR APTT D-Dimer Heparin Anti-Xa Level ABG pH ABG pO2 ABG HCO3 ABG O2 Saturation ABG Base Excess ABG Hemoglobin Oxyhemoglobin Sodium Potassium 3.5 L Chloride 107.5 H Carbon Dioxide 20 L BUN 28 H Creatinine 1.7 H Glucose 113 H POC Glucose Hemoglobin A1c Lactic Acid Calcium 7.9 L Phosphorus Magnesium Ferritin AST ALT Alkaline Phosphatase Lactate Dehydrogenase 469 H Troponin T C-Reactive Protein 13.40 H Total Protein Albumin LDL Cholesterol Direct Urine Creatinine Urine Total Protein Salicylates Acetaminophen Crossmatch 10/31/21 10/31/21 10/31/21 04:30 05:11 15:30 WBC RBC Hgb Hct MCH RDW Plt Count Lymph % (Auto) Emery % (Auto) Lymph # (Auto) Emery # (Auto) Seg Neutrophils % Seg Neuts % (Manual) Lymphocytes % (Manual) Monocytes % (Manual) Basophils % (Manual) Nucleated RBC % Seg Neutrophils # Seg Neutrophils # Man Lymphocytes # (Manual) Monocytes # (Manual) Eosinophils # (Manual) Basophils # (Manual) PT INR APTT D-Dimer Heparin Anti-Xa Level ABG pH 7.222 L ABG pO2 61.5 L ABG HCO3 ABG O2 Saturation 86.2 L ABG Base Excess -6.3 L ABG Hemoglobin 11.2 L Oxyhemoglobin 84.5 L Sodium Potassium Chloride Carbon Dioxide BUN Creatinine Glucose POC Glucose 106 H Hemoglobin A1c 6.7 H Lactic Acid Calcium Phosphorus Magnesium Ferritin AST ALT Alkaline Phosphatase Lactate Dehydrogenase Troponin T C-Reactive Protein Total Protein Albumin LDL Cholesterol Direct Urine Creatinine Urine Total Protein Salicylates Acetaminophen Crossmatch 10/31/21 10/31/21 10/31/21 16:07 16:35 17:45 WBC RBC Hgb Hct MCH RDW Plt Count Lymph % (Auto) Emery % (Auto) Lymph # (Auto) Emery # (Auto) Seg Neutrophils % Seg Neuts % (Manual) Lymphocytes % (Manual) Monocytes % (Manual) Basophils % (Manual) Nucleated RBC % Seg Neutrophils # Seg Neutrophils # Man Lymphocytes # (Manual) Monocytes # (Manual) Eosinophils # (Manual) Basophils # (Manual) PT INR APTT D-Dimer Heparin Anti-Xa Level ABG pH 7.267 L ABG pO2 58.3 L ABG HCO3 ABG O2 Saturation 88.3 L ABG Base Excess -5.9 L ABG Hemoglobin 10.1 L Oxyhemoglobin 86.5 L Sodium Potassium Chloride Carbon Dioxide BUN Creatinine Glucose POC Glucose 115 H Hemoglobin A1c Lactic Acid Calcium Phosphorus Magnesium Ferritin AST ALT Alkaline Phosphatase Lactate Dehydrogenase Troponin T C-Reactive Protein Total Protein Albumin LDL Cholesterol Direct Urine Creatinine 383.6 H Urine Total Protein Salicylates Acetaminophen Crossmatch 11/01/21 11/01/21 11/01/21 00:06 05:08 06:00 WBC 12.6 H RBC 3.43 L Hgb 8.9 L Hct 28.7 L MCH 26 L RDW 15.7 H Plt Count 130 L Lymph % (Auto) Emery % (Auto) Lymph # (Auto) Emery # (Auto) Seg Neutrophils % Seg Neuts % (Manual) Lymphocytes % (Manual) Monocytes % (Manual) Basophils % (Manual) Nucleated RBC % Seg Neutrophils # Seg Neutrophils # Man Lymphocytes # (Manual) Monocytes # (Manual) Eosinophils # (Manual) Basophils # (Manual) PT INR APTT D-Dimer Heparin Anti-Xa Level ABG pH ABG pO2 ABG HCO3 ABG O2 Saturation ABG Base Excess ABG Hemoglobin Oxyhemoglobin Sodium Potassium Chloride Carbon Dioxide BUN Creatinine Glucose POC Glucose 114 H 120 H Hemoglobin A1c Lactic Acid Calcium Phosphorus Magnesium Ferritin AST ALT Alkaline Phosphatase Lactate Dehydrogenase Troponin T C-Reactive Protein Total Protein Albumin LDL Cholesterol Direct Urine Creatinine Urine Total Protein Salicylates Acetaminophen Crossmatch 11/01/21 11/01/21 11/01/21 06:00 11:43 14:00 WBC RBC Hgb Hct MCH RDW Plt Count Lymph % (Auto) Emery % (Auto) Lymph # (Auto) Emery # (Auto) Seg Neutrophils % Seg Neuts % (Manual) Lymphocytes % (Manual) Monocytes % (Manual) Basophils % (Manual) Nucleated RBC % Seg Neutrophils # Seg Neutrophils # Man Lymphocytes # (Manual) Monocytes # (Manual) Eosinophils # (Manual) Basophils # (Manual) PT INR APTT D-Dimer Heparin Anti-Xa Level ABG pH 7.349 L ABG pO2 75.6 L ABG HCO3 ABG O2 Saturation ABG Base Excess -3.9 L ABG Hemoglobin 9.8 L Oxyhemoglobin 93.5 L Sodium Potassium Chloride 114.1 H Carbon Dioxide 20 L BUN 33 H Creatinine Glucose 131 H POC Glucose 151 H Hemoglobin A1c Lactic Acid Calcium 7.7 L Phosphorus Magnesium Ferritin AST 79 H ALT 259 H Alkaline Phosphatase Lactate Dehydrogenase Troponin T C-Reactive Protein Total Protein 5.5 L Albumin 2.7 L LDL Cholesterol Direct Urine Creatinine Urine Total Protein Salicylates Acetaminophen Crossmatch 11/01/21 11/01/21 11/02/21 16:45 22:55 05:12 WBC RBC Hgb Hct MCH RDW Plt Count Lymph % (Auto) Emery % (Auto) Lymph # (Auto) Emery # (Auto) Seg Neutrophils % Seg Neuts % (Manual) Lymphocytes % (Manual) Monocytes % (Manual) Basophils % (Manual) Nucleated RBC % Seg Neutrophils # Seg Neutrophils # Man Lymphocytes # (Manual) Monocytes # (Manual) Eosinophils # (Manual) Basophils # (Manual) PT INR APTT D-Dimer Heparin Anti-Xa Level ABG pH ABG pO2 ABG HCO3 ABG O2 Saturation ABG Base Excess ABG Hemoglobin Oxyhemoglobin Sodium Potassium Chloride Carbon Dioxide BUN Creatinine Glucose POC Glucose 119 H 129 H 140 H Hemoglobin A1c Lactic Acid Calcium Phosphorus Magnesium Ferritin AST ALT Alkaline Phosphatase Lactate Dehydrogenase Troponin T C-Reactive Protein Total Protein Albumin LDL Cholesterol Direct Urine Creatinine Urine Total Protein Salicylates Acetaminophen Crossmatch 11/02/21 11/02/21 11/02/21 05:35 05:35 09:35 WBC 13.5 H RBC 3.60 L Hgb 9.7 L Hct MCH 27 L RDW 15.7 H Plt Count Lymph % (Auto) Emery % (Auto) Lymph # (Auto) Emery # (Auto) Seg Neutrophils % Seg Neuts % (Manual) Lymphocytes % (Manual) Monocytes % (Manual) Basophils % (Manual) Nucleated RBC % Seg Neutrophils # Seg Neutrophils # Man Lymphocytes # (Manual) Monocytes # (Manual) Eosinophils # (Manual) Basophils # (Manual) PT INR APTT D-Dimer Heparin Anti-Xa Level ABG pH 7.208 L ABG pO2 75.9 L ABG HCO3 ABG O2 Saturation 93.6 L ABG Base Excess -4.3 L ABG Hemoglobin 9.1 L Oxyhemoglobin 91.6 L Sodium Potassium 5.2 H D Chloride 112.6 H Carbon Dioxide BUN 32 H Creatinine Glucose 152 H POC Glucose Hemoglobin A1c Lactic Acid Calcium 8.2 L Phosphorus Magnesium 2.70 H Ferritin AST ALT Alkaline Phosphatase Lactate Dehydrogenase Troponin T C-Reactive Protein Total Protein Albumin LDL Cholesterol Direct Urine Creatinine Urine Total Protein Salicylates Acetaminophen Crossmatch 11/02/21 11/02/21 11/02/21 11:44 17:13 23:43 WBC RBC Hgb Hct MCH RDW Plt Count Lymph % (Auto) Emery % (Auto) Lymph # (Auto) Emery # (Auto) Seg Neutrophils % Seg Neuts % (Manual) Lymphocytes % (Manual) Monocytes % (Manual) Basophils % (Manual) Nucleated RBC % Seg Neutrophils # Seg Neutrophils # Man Lymphocytes # (Manual) Monocytes # (Manual) Eosinophils # (Manual) Basophils # (Manual) PT INR APTT D-Dimer Heparin Anti-Xa Level ABG pH ABG pO2 ABG HCO3 ABG O2 Saturation ABG Base Excess ABG Hemoglobin Oxyhemoglobin Sodium Potassium Chloride Carbon Dioxide BUN Creatinine Glucose POC Glucose 173 H 148 H 137 H Hemoglobin A1c Lactic Acid Calcium Phosphorus Magnesium Ferritin AST ALT Alkaline Phosphatase Lactate Dehydrogenase Troponin T C-Reactive Protein Total Protein Albumin LDL Cholesterol Direct Urine Creatinine Urine Total Protein Salicylates Acetaminophen Crossmatch 11/03/21 11/03/21 11/03/21 04:59 06:00 06:00 WBC RBC 3.43 L Hgb 9.1 L Hct 29.0 L MCH 26 L RDW 16.4 H Plt Count Lymph % (Auto) Emery % (Auto) Lymph # (Auto) Emery # (Auto) Seg Neutrophils % Seg Neuts % (Manual) Lymphocytes % (Manual) Monocytes % (Manual) Basophils % (Manual) Nucleated RBC % Seg Neutrophils # Seg Neutrophils # Man Lymphocytes # (Manual) Monocytes # (Manual) Eosinophils # (Manual) Basophils # (Manual) PT INR APTT D-Dimer Heparin Anti-Xa Level 0.17 L ABG pH ABG pO2 ABG HCO3 ABG O2 Saturation ABG Base Excess ABG Hemoglobin Oxyhemoglobin Sodium Potassium Chloride Carbon Dioxide BUN Creatinine Glucose POC Glucose 167 H Hemoglobin A1c Lactic Acid Calcium Phosphorus Magnesium Ferritin AST ALT Alkaline Phosphatase Lactate Dehydrogenase Troponin T C-Reactive Protein Total Protein Albumin LDL Cholesterol Direct Urine Creatinine Urine Total Protein Salicylates Acetaminophen Crossmatch 11/03/21 11/03/21 11/03/21 06:00 09:20 11:58 WBC RBC Hgb Hct MCH RDW Plt Count Lymph % (Auto) Emery % (Auto) Lymph # (Auto) Emery # (Auto) Seg Neutrophils % Seg Neuts % (Manual) Lymphocytes % (Manual) Monocytes % (Manual) Basophils % (Manual) Nucleated RBC % Seg Neutrophils # Seg Neutrophils # Man Lymphocytes # (Manual) Monocytes # (Manual) Eosinophils # (Manual) Basophils # (Manual) PT INR APTT D-Dimer Heparin Anti-Xa Level ABG pH 7.274 L ABG pO2 75.6 L ABG HCO3 ABG O2 Saturation 94.9 L ABG Base Excess -2.5 L ABG Hemoglobin 9.3 L Oxyhemoglobin 92.9 L Sodium 149 H Potassium Chloride 117.5 H Carbon Dioxide BUN 32 H Creatinine Glucose 173 H POC Glucose 192 H Hemoglobin A1c Lactic Acid Calcium 8.1 L Phosphorus Magnesium Ferritin AST ALT Alkaline Phosphatase Lactate Dehydrogenase Troponin T C-Reactive Protein Total Protein Albumin LDL Cholesterol Direct Urine Creatinine Urine Total Protein Salicylates Acetaminophen Crossmatch 11/03/21 11/03/21 11/04/21 18:22 Unknown 00:09 WBC RBC Hgb Hct MCH RDW Plt Count Lymph % (Auto) Emery % (Auto) Lymph # (Auto) Emery # (Auto) Seg Neutrophils % Seg Neuts % (Manual) Lymphocytes % (Manual) Monocytes % (Manual) Basophils % (Manual) Nucleated RBC % Seg Neutrophils # Seg Neutrophils # Man Lymphocytes # (Manual) Monocytes # (Manual) Eosinophils # (Manual) Basophils # (Manual) PT INR APTT D-Dimer Heparin Anti-Xa Level 0.29 L ABG pH ABG pO2 ABG HCO3 ABG O2 Saturation ABG Base Excess ABG Hemoglobin Oxyhemoglobin Sodium Potassium Chloride Carbon Dioxide BUN Creatinine Glucose POC Glucose 178 H 221 H Hemoglobin A1c Lactic Acid Calcium Phosphorus Magnesium Ferritin AST ALT Alkaline Phosphatase Lactate Dehydrogenase Troponin T C-Reactive Protein Total Protein Albumin LDL Cholesterol Direct Urine Creatinine Urine Total Protein Salicylates Acetaminophen Crossmatch 11/04/21 11/04/21 11/04/21 05:09 09:40 09:40 WBC 16.8 H RBC Hgb Hct MCH 27 L RDW 16.5 H Plt Count Lymph % (Auto) [place]y % (Auto) Lymph # (Auto) [place]y # (Auto) Seg Neutrophils % Seg Neuts % (Manual) Lymphocytes % (Manual) Monocytes % (Manual) Basophils % (Manual) Nucleated RBC % Seg Neutrophils # Seg Neutrophils # Man Lymphocytes # (Manual) Monocytes # (Manual) Eosinophils # (Manual) Basophils # (Manual) PT INR APTT D-Dimer Heparin Anti-Xa Level ABG pH ABG pO2 ABG HCO3 ABG O2 Saturation ABG Base Excess ABG Hemoglobin Oxyhemoglobin Sodium Potassium 5.9 H Chloride 108.5 H Carbon Dioxide BUN 54 H Creatinine 1.8 H Glucose 198 H POC Glucose 182 H Hemoglobin A1c Lactic Acid Calcium Phosphorus Magnesium 3.00 H Ferritin AST ALT Alkaline Phosphatase Lactate Dehydrogenase Troponin T C-Reactive Protein Total Protein Albumin LDL Cholesterol Direct Urine Creatinine Urine Total Protein Salicylates Acetaminophen Crossmatch 11/04/21 11/04/21 11/04/21 12:13 13:34 14:05 WBC RBC Hgb Hct MCH RDW Plt Count Lymph % (Auto) [place]y % (Auto) Lymph # (Auto) [place]y # (Auto) Seg Neutrophils % Seg Neuts % (Manual) Lymphocytes % (Manual) Monocytes % (Manual) Basophils % (Manual) Nucleated RBC % Seg Neutrophils # Seg Neutrophils # Man Lymphocytes # (Manual) Monocytes # (Manual) Eosinophils # (Manual) Basophils # (Manual) PT INR APTT D-Dimer Heparin Anti-Xa Level ABG pH 7.223 L ABG pO2 71.3 L ABG HCO3 ABG O2 Saturation 92.8 L ABG Base Excess ABG Hemoglobin 8.2 L Oxyhemoglobin 91.0 L Sodium Potassium Chloride Carbon Dioxide BUN Creatinine Glucose POC Glucose 184 H Hemoglobin A1c Lactic Acid Calcium Phosphorus Magnesium Ferritin AST ALT Alkaline Phosphatase Lactate Dehydrogenase Troponin T C-Reactive Protein Total Protein Albumin LDL Cholesterol Direct Urine Creatinine 184.6 H Urine Total Protein Salicylates Acetaminophen Crossmatch 11/04/21 11/04/21 11/05/21 18:02 Unknown 00:07 WBC RBC Hgb Hct MCH RDW Plt Count Lymph % (Auto) [place] % (Auto) Lymph # (Auto) [place]y # (Auto) Seg Neutrophils % Seg Neuts % (Manual) Lymphocytes % (Manual) Monocytes % (Manual) Basophils % (Manual) Nucleated RBC % Seg Neutrophils # Seg Neutrophils # Man Lymphocytes # (Manual) Monocytes # (Manual) Eosinophils # (Manual) Basophils # (Manual) PT INR APTT D-Dimer Heparin Anti-Xa Level ABG pH ABG pO2 ABG HCO3 ABG O2 Saturation ABG Base Excess ABG Hemoglobin Oxyhemoglobin Sodium Potassium Chloride Carbon Dioxide BUN Creatinine Glucose POC Glucose 262 H 259 H Hemoglobin A1c Lactic Acid Calcium Phosphorus Magnesium Ferritin AST ALT Alkaline Phosphatase Lactate Dehydrogenase Troponin T C-Reactive Protein Total Protein Albumin LDL Cholesterol Direct Urine Creatinine 190.9 H Urine Total Protein 172 H Salicylates Acetaminophen Crossmatch 11/05/21 11/05/21 11/05/21 04:20 04:20 05:30 WBC 17.9 H RBC 3.64 L Hgb 9.7 L Hct MCH 27 L RDW 16.4 H Plt Count Lymph % (Auto) [place] % (Auto) Lymph # (Auto) [place]y # (Auto) Seg Neutrophils % Seg Neuts % (Manual) Lymphocytes % (Manual) Monocytes % (Manual) Basophils % (Manual) Nucleated RBC % Seg Neutrophils # Seg Neutrophils # Man Lymphocytes # (Manual) Monocytes # (Manual) Eosinophils # (Manual) Basophils # (Manual) PT INR APTT D-Dimer Heparin Anti-Xa Level ABG pH ABG pO2 ABG HCO3 ABG O2 Saturation ABG Base Excess ABG Hemoglobin Oxyhemoglobin Sodium Potassium 5.6 H Chloride 108.4 H Carbon Dioxide BUN 71 H Creatinine 1.9 H Glucose 270 H POC Glucose 283 H Hemoglobin A1c Lactic Acid Calcium Phosphorus Magnesium Ferritin AST ALT Alkaline Phosphatase Lactate Dehydrogenase Troponin T C-Reactive Protein Total Protein Albumin LDL Cholesterol Direct Urine Creatinine Urine Total Protein Salicylates Acetaminophen Crossmatch 11/05/21 11/05/21 11/05/21 10:05 12:10 15:29 WBC RBC Hgb Hct MCH RDW Plt Count Lymph % (Auto) [place] % (Auto) Lymph # (Auto) [place]y # (Auto) Seg Neutrophils % Seg Neuts % (Manual) Lymphocytes % (Manual) Monocytes % (Manual) Basophils % (Manual) Nucleated RBC % Seg Neutrophils # Seg Neutrophils # Man Lymphocytes # (Manual) Monocytes # (Manual) Eosinophils # (Manual) Basophils # (Manual) PT INR APTT D-Dimer Heparin Anti-Xa Level ABG pH 7.248 L ABG pO2 73.7 L ABG HCO3 26.2 H ABG O2 Saturation 93.1 L ABG Base Excess ABG Hemoglobin 8.9 L Oxyhemoglobin 91.4 L Sodium Potassium Chloride Carbon Dioxide BUN Creatinine Glucose POC Glucose 225 H 199 H Hemoglobin A1c Lactic Acid Calcium Phosphorus Magnesium Ferritin AST ALT Alkaline Phosphatase Lactate Dehydrogenase Troponin T C-Reactive Protein Total Protein Albumin LDL Cholesterol Direct Urine Creatinine Urine Total Protein Salicylates Acetaminophen Crossmatch 11/05/21 11/05/21 11/05/21 15:51 17:32 17:40 WBC RBC Hgb Hct MCH RDW Plt Count Lymph % (Auto) [place] % (Auto) Lymph # (Auto) [place]y # (Auto) Seg Neutrophils % Seg Neuts % (Manual) Lymphocytes % (Manual) Monocytes % (Manual) Basophils % (Manual) Nucleated RBC % Seg Neutrophils # Seg Neutrophils # Man Lymphocytes # (Manual) Monocytes # (Manual) Eosinophils # (Manual) Basophils # (Manual) PT INR APTT D-Dimer Heparin Anti-Xa Level ABG pH ABG pO2 ABG HCO3 ABG O2 Saturation ABG Base Excess ABG Hemoglobin Oxyhemoglobin Sodium Potassium 5.2 H Chloride 107.8 H Carbon Dioxide BUN 79 H Creatinine 1.9 H Glucose 204 H POC Glucose 278 H 197 H Hemoglobin A1c Lactic Acid Calcium Phosphorus Magnesium Ferritin AST ALT Alkaline Phosphatase Lactate Dehydrogenase Troponin T C-Reactive Protein Total Protein Albumin LDL Cholesterol Direct Urine Creatinine Urine Total Protein Salicylates Acetaminophen Crossmatch 11/05/21 11/05/21 11/05/21 21:25 22:22 23:43 WBC RBC Hgb Hct MCH RDW Plt Count Lymph % (Auto) [place] % (Auto) Lymph # (Auto) [place] # (Auto) Seg Neutrophils % Seg Neuts % (Manual) Lymphocytes % (Manual) Monocytes % (Manual) Basophils % (Manual) Nucleated RBC % Seg Neutrophils # Seg Neutrophils # Man Lymphocytes # (Manual) Monocytes # (Manual) Eosinophils # (Manual) Basophils # (Manual) PT INR APTT D-Dimer Heparin Anti-Xa Level ABG pH ABG pO2 ABG HCO3 ABG O2 Saturation ABG Base Excess ABG Hemoglobin Oxyhemoglobin Sodium Potassium 5.3 H Chloride 109.2 H Carbon Dioxide BUN 81 H Creatinine 2.0 H Glucose 195 H POC Glucose 180 H 203 H Hemoglobin A1c Lactic Acid Calcium Phosphorus Magnesium Ferritin AST ALT Alkaline Phosphatase Lactate Dehydrogenase Troponin T C-Reactive Protein Total Protein Albumin LDL Cholesterol Direct Urine Creatinine Urine Total Protein Salicylates Acetaminophen Crossmatch 11/05/21 11/06/21 11/06/21 Unknown 02:35 05:09 WBC RBC Hgb Hct MCH RDW Plt Count Lymph % (Auto) [place] % (Auto) Lymph # (Auto) [place] # (Auto) Seg Neutrophils % Seg Neuts % (Manual) Lymphocytes % (Manual) Monocytes % (Manual) Basophils % (Manual) Nucleated RBC % Seg Neutrophils # Seg Neutrophils # Man Lymphocytes # (Manual) Monocytes # (Manual) Eosinophils # (Manual) Basophils # (Manual) PT INR APTT D-Dimer Heparin Anti-Xa Level ABG pH ABG pO2 ABG HCO3 ABG O2 Saturation ABG Base Excess ABG Hemoglobin Oxyhemoglobin Sodium 146 H Potassium 6.0 H Chloride 108.1 H 107.1 H Carbon Dioxide 21 L BUN 80 H 84 H Creatinine 2.0 H 2.0 H Glucose 238 H 235 H POC Glucose 215 H Hemoglobin A1c Lactic Acid Calcium Phosphorus Magnesium 2.80 H Ferritin AST ALT 77 H Alkaline Phosphatase Lactate Dehydrogenase Troponin T C-Reactive Protein Total Protein Albumin 3.0 L LDL Cholesterol Direct Urine Creatinine Urine Total Protein Salicylates Acetaminophen Crossmatch 11/06/21 11/06/21 11/06/21 05:40 08:07 08:07 WBC RBC Hgb Hct MCH RDW Plt Count Lymph % (Auto) [place] % (Auto) Lymph # (Auto) [place]y # (Auto) Seg Neutrophils % Seg Neuts % (Manual) Lymphocytes % (Manual) Monocytes % (Manual) Basophils % (Manual) Nucleated RBC % Seg Neutrophils # Seg Neutrophils # Man Lymphocytes # (Manual) Monocytes # (Manual) Eosinophils # (Manual) Basophils # (Manual) PT INR APTT D-Dimer Heparin Anti-Xa Level 1.24 H ABG pH 7.311 L ABG pO2 72.8 L ABG HCO3 29.7 H ABG O2 Saturation 94.1 L ABG Base Excess ABG Hemoglobin 11.4 L Oxyhemoglobin 92.3 L Sodium Potassium 5.2 H Chloride Carbon Dioxide BUN 85 H Creatinine 2.3 H Glucose 236 H POC Glucose Hemoglobin A1c Lactic Acid Calcium Phosphorus Magnesium Ferritin AST ALT Alkaline Phosphatase Lactate Dehydrogenase Troponin T C-Reactive Protein Total Protein Albumin LDL Cholesterol Direct Urine Creatinine Urine Total Protein Salicylates Acetaminophen Crossmatch 11/06/21 11/06/21 11/06/21 12:14 12:57 14:28 WBC RBC Hgb Hct MCH RDW Plt Count Lymph % (Auto) [place] % (Auto) Lymph # (Auto) [place] # (Auto) Seg Neutrophils % Seg Neuts % (Manual) Lymphocytes % (Manual) Monocytes % (Manual) Basophils % (Manual) Nucleated RBC % Seg Neutrophils # Seg Neutrophils # Man Lymphocytes # (Manual) Monocytes # (Manual) Eosinophils # (Manual) Basophils # (Manual) PT INR APTT D-Dimer Heparin Anti-Xa Level ABG pH 7.282 L ABG pO2 72.6 L ABG HCO3 30.8 H ABG O2 Saturation 93.7 L ABG Base Excess 3.2 H ABG Hemoglobin 8.6 L Oxyhemoglobin 91.8 L Sodium Potassium Chloride Carbon Dioxide BUN 91 H Creatinine 2.6 H Glucose 259 H POC Glucose 225 H Hemoglobin A1c Lactic Acid Calcium Phosphorus Magnesium Ferritin AST ALT Alkaline Phosphatase Lactate Dehydrogenase Troponin T C-Reactive Protein Total Protein Albumin LDL Cholesterol Direct Urine Creatinine Urine Total Protein Salicylates Acetaminophen Crossmatch 11/06/21 11/06/21 11/06/21 17:28 19:20 21:30 WBC RBC Hgb Hct MCH RDW Plt Count Lymph % (Auto) [place] % (Auto) Lymph # (Auto) [place] # (Auto) Seg Neutrophils % Seg Neuts % (Manual) Lymphocytes % (Manual) Monocytes % (Manual) Basophils % (Manual) Nucleated RBC % Seg Neutrophils # Seg Neutrophils # Man Lymphocytes # (Manual) Monocytes # (Manual) Eosinophils # (Manual) Basophils # (Manual) PT INR APTT D-Dimer Heparin Anti-Xa Level 0.73 H ABG pH ABG pO2 ABG HCO3 ABG O2 Saturation ABG Base Excess ABG Hemoglobin Oxyhemoglobin Sodium Potassium Chloride Carbon Dioxide BUN 95 H Creatinine 2.9 H Glucose 233 H POC Glucose 206 H Hemoglobin A1c Lactic Acid Calcium Phosphorus Magnesium Ferritin AST ALT Alkaline Phosphatase Lactate Dehydrogenase Troponin T C-Reactive Protein Total Protein Albumin LDL Cholesterol Direct Urine Creatinine Urine Total Protein Salicylates Acetaminophen Crossmatch 11/06/21 11/07/21 11/07/21 22:56 05:06 06:30 WBC RBC Hgb Hct MCH RDW Plt Count Lymph % (Auto) [place] % (Auto) Lymph # (Auto) [place] # (Auto) Seg Neutrophils % Seg Neuts % (Manual) Lymphocytes % (Manual) Monocytes % (Manual) Basophils % (Manual) Nucleated RBC % Seg Neutrophils # Seg Neutrophils # Man Lymphocytes # (Manual) Monocytes # (Manual) Eosinophils # (Manual) Basophils # (Manual) PT INR APTT D-Dimer Heparin Anti-Xa Level ABG pH ABG pO2 ABG HCO3 ABG O2 Saturation ABG Base Excess ABG Hemoglobin Oxyhemoglobin Sodium 146 H Potassium Chloride Carbon Dioxide BUN 98 H Creatinine 2.8 H Glucose 202 H POC Glucose 215 H 172 H Hemoglobin A1c Lactic Acid Calcium Phosphorus 4.90 H D Magnesium 2.90 H Ferritin AST ALT Alkaline Phosphatase Lactate Dehydrogenase Troponin T C-Reactive Protein Total Protein Albumin LDL Cholesterol Direct Urine Creatinine Urine Total Protein Salicylates Acetaminophen Crossmatch 11/07/21 11/07/21 11/07/21 06:30 11:26 12:15 WBC 16.0 H RBC 3.06 L Hgb 8.2 L Hct 26.1 L MCH 27 L RDW 16.2 H Plt Count Lymph % (Auto) [place] % (Auto) Lymph # (Auto) [place] # (Auto) Seg Neutrophils % Seg Neuts % (Manual) 77.0 H Lymphocytes % (Manual) 11.0 L Monocytes % (Manual) Basophils % (Manual) Nucleated RBC % 2.0 H Seg Neutrophils # Seg Neutrophils # Man 12.3 H Lymphocytes # (Manual) Monocytes # (Manual) Eosinophils # (Manual) Basophils # (Manual) PT INR APTT D-Dimer Heparin Anti-Xa Level ABG pH 7.298 L ABG pO2 73.0 L ABG HCO3 33.3 H ABG O2 Saturation 94.4 L ABG Base Excess 5.8 H ABG Hemoglobin 8.2 L Oxyhemoglobin 92.7 L Sodium Potassium Chloride Carbon Dioxide BUN Creatinine Glucose POC Glucose 179 H Hemoglobin A1c Lactic Acid Calcium Phosphorus Magnesium Ferritin AST ALT Alkaline Phosphatase Lactate Dehydrogenase Troponin T C-Reactive Protein Total Protein Albumin LDL Cholesterol Direct Urine Creatinine Urine Total Protein Salicylates Acetaminophen Crossmatch 11/07/21 11/07/21 11/07/21 17:57 22:16 23:49 WBC RBC Hgb Hct MCH RDW Plt Count Lymph % (Auto) [place] % (Auto) Lymph # (Auto) [place] # (Auto) Seg Neutrophils % Seg Neuts % (Manual) Lymphocytes % (Manual) Monocytes % (Manual) Basophils % (Manual) Nucleated RBC % Seg Neutrophils # Seg Neutrophils # Man Lymphocytes # (Manual) Monocytes # (Manual) Eosinophils # (Manual) Basophils # (Manual) PT INR APTT D-Dimer Heparin Anti-Xa Level ABG pH ABG pO2 ABG HCO3 ABG O2 Saturation ABG Base Excess ABG Hemoglobin Oxyhemoglobin Sodium Potassium Chloride Carbon Dioxide BUN Creatinine Glucose POC Glucose 166 H 223 H 190 H Hemoglobin A1c Lactic Acid Calcium Phosphorus Magnesium Ferritin AST ALT Alkaline Phosphatase Lactate Dehydrogenase Troponin T C-Reactive Protein Total Protein Albumin LDL Cholesterol Direct Urine Creatinine Urine Total Protein Salicylates Acetaminophen Crossmatch 11/08/21 11/08/21 11/08/21 04:20 04:20 06:16 WBC 22.1 H RBC 3.01 L Hgb 8.1 L Hct 25.6 L MCH 27 L RDW 15.4 H Plt Count Lymph % (Auto) [place] % (Auto) Lymph # (Auto) [place] # (Auto) Seg Neutrophils % Seg Neuts % (Manual) Lymphocytes % (Manual) Monocytes % (Manual) Basophils % (Manual) Nucleated RBC % Seg Neutrophils # Seg Neutrophils # Man Lymphocytes # (Manual) Monocytes # (Manual) Eosinophils # (Manual) Basophils # (Manual) PT INR APTT D-Dimer Heparin Anti-Xa Level ABG pH ABG pO2 ABG HCO3 ABG O2 Saturation ABG Base Excess ABG Hemoglobin Oxyhemoglobin Sodium 151 H Potassium 3.1 L D Chloride 107.3 H Carbon Dioxide 31 H BUN 82 H Creatinine 1.8 H Glucose 232 H POC Glucose 198 H Hemoglobin A1c Lactic Acid Calcium 8.1 L Phosphorus Magnesium Ferritin AST ALT Alkaline Phosphatase Lactate Dehydrogenase Troponin T C-Reactive Protein Total Protein Albumin LDL Cholesterol Direct Urine Creatinine Urine Total Protein Salicylates Acetaminophen Crossmatch 11/08/21 11/08/21 11/08/21 11:38 12:00 18:29 WBC RBC Hgb Hct MCH RDW Plt Count Lymph % (Auto) [place] % (Auto) Lymph # (Auto) [place] # (Auto) Seg Neutrophils % Seg Neuts % (Manual) Lymphocytes % (Manual) Monocytes % (Manual) Basophils % (Manual) Nucleated RBC % Seg Neutrophils # Seg Neutrophils # Man Lymphocytes # (Manual) Monocytes # (Manual) Eosinophils # (Manual) Basophils # (Manual) PT INR APTT D-Dimer Heparin Anti-Xa Level ABG pH ABG pO2 ABG HCO3 ABG O2 Saturation ABG Base Excess ABG Hemoglobin Oxyhemoglobin Sodium Potassium 3.0 L Chloride Carbon Dioxide BUN Creatinine Glucose POC Glucose 190 H 211 H Hemoglobin A1c Lactic Acid Calcium Phosphorus Magnesium Ferritin AST ALT Alkaline Phosphatase Lactate Dehydrogenase Troponin T C-Reactive Protein Total Protein Albumin LDL Cholesterol Direct Urine Creatinine Urine Total Protein Salicylates Acetaminophen Crossmatch 11/08/21 11/08/21 11/09/21 21:34 21:40 00:36 WBC RBC Hgb Hct MCH RDW Plt Count Lymph % (Auto) [place] % (Auto) Lymph # (Auto) [place] # (Auto) Seg Neutrophils % Seg Neuts % (Manual) Lymphocytes % (Manual) Monocytes % (Manual) Basophils % (Manual) Nucleated RBC % Seg Neutrophils # Seg Neutrophils # Man Lymphocytes # (Manual) Monocytes # (Manual) Eosinophils # (Manual) Basophils # (Manual) PT INR APTT D-Dimer Heparin Anti-Xa Level ABG pH ABG pO2 ABG HCO3 ABG O2 Saturation ABG Base Excess ABG Hemoglobin Oxyhemoglobin Sodium 148 H Potassium 2.8 L* Chloride Carbon Dioxide 31 H BUN 68 H Creatinine 1.5 H Glucose 191 H POC Glucose 194 H 140 H Hemoglobin A1c Lactic Acid Calcium 8.2 L Phosphorus Magnesium Ferritin AST ALT Alkaline Phosphatase Lactate Dehydrogenase Troponin T C-Reactive Protein Total Protein Albumin LDL Cholesterol Direct Urine Creatinine Urine Total Protein Salicylates Acetaminophen Crossmatch 11/09/21 11/09/21 11/09/21 04:51 04:51 04:51 WBC 27.6 H RBC 3.18 L Hgb 8.4 L Hct 26.6 L MCH 27 L RDW 15.3 H Plt Count Lymph % (Auto) [place] % (Auto) Lymph # (Auto) [place] # (Auto) Seg Neutrophils % Seg Neuts % (Manual) Lymphocytes % (Manual) Monocytes % (Manual) Basophils % (Manual) Nucleated RBC % Seg Neutrophils # Seg Neutrophils # Man Lymphocytes # (Manual) Monocytes # (Manual) Eosinophils # (Manual) Basophils # (Manual) PT INR APTT D-Dimer Heparin Anti-Xa Level 0.18 L ABG pH ABG pO2 ABG HCO3 ABG O2 Saturation ABG Base Excess ABG Hemoglobin Oxyhemoglobin Sodium 148 H Potassium 2.7 L* Chloride Carbon Dioxide BUN 59 H Creatinine 1.4 H Glucose 143 H POC Glucose Hemoglobin A1c Lactic Acid Calcium 8.3 L Phosphorus Magnesium Ferritin AST ALT Alkaline Phosphatase Lactate Dehydrogenase Troponin T C-Reactive Protein Total Protein Albumin LDL Cholesterol Direct Urine Creatinine Urine Total Protein Salicylates Acetaminophen Crossmatch 11/09/21 11/09/21 11/09/21 05:52 08:45 11:00 WBC RBC Hgb Hct MCH RDW Plt Count Lymph % (Auto) [place] % (Auto) Lymph # (Auto) [place] # (Auto) Seg Neutrophils % Seg Neuts % (Manual) Lymphocytes % (Manual) Monocytes % (Manual) Basophils % (Manual) Nucleated RBC % Seg Neutrophils # Seg Neutrophils # Man Lymphocytes # (Manual) Monocytes # (Manual) Eosinophils # (Manual) Basophils # (Manual) PT INR APTT D-Dimer Heparin Anti-Xa Level ABG pH ABG pO2 73.2 L ABG HCO3 33.8 H ABG O2 Saturation ABG Base Excess 8.7 H ABG Hemoglobin 8.5 L Oxyhemoglobin 94.1 L Sodium Potassium Chloride Carbon Dioxide BUN Creatinine Glucose POC Glucose 166 H 136 H Hemoglobin A1c Lactic Acid Calcium Phosphorus Magnesium Ferritin AST ALT Alkaline Phosphatase Lactate Dehydrogenase Troponin T C-Reactive Protein Total Protein Albumin LDL Cholesterol Direct Urine Creatinine Urine Total Protein Salicylates Acetaminophen Crossmatch 11/09/21 11/09/21 11/09/21 15:48 16:10 20:31 WBC RBC Hgb Hct MCH RDW Plt Count Lymph % (Auto) [place] % (Auto) Lymph # (Auto) [place] # (Auto) Seg Neutrophils % Seg Neuts % (Manual) Lymphocytes % (Manual) Monocytes % (Manual) Basophils % (Manual) Nucleated RBC % Seg Neutrophils # Seg Neutrophils # Man Lymphocytes # (Manual) Monocytes # (Manual) Eosinophils # (Manual) Basophils # (Manual) PT INR APTT D-Dimer Heparin Anti-Xa Level ABG pH ABG pO2 ABG HCO3 ABG O2 Saturation ABG Base Excess ABG Hemoglobin Oxyhemoglobin Sodium Potassium 2.8 L* Chloride Carbon Dioxide 31 H BUN 53 H Creatinine 1.3 H Glucose 208 H POC Glucose 203 H 166 H Hemoglobin A1c Lactic Acid Calcium 7.9 L Phosphorus Magnesium Ferritin AST ALT Alkaline Phosphatase Lactate Dehydrogenase Troponin T C-Reactive Protein Total Protein Albumin LDL Cholesterol Direct Urine Creatinine Urine Total Protein Salicylates Acetaminophen Crossmatch 11/09/21 11/09/21 11/09/21 21:30 23:16 Unknown WBC RBC Hgb Hct MCH RDW Plt Count Lymph % (Auto) [place] % (Auto) Lymph # (Auto) [place] # (Auto) Seg Neutrophils % Seg Neuts % (Manual) Lymphocytes % (Manual) Monocytes % (Manual) Basophils % (Manual) Nucleated RBC % Seg Neutrophils # Seg Neutrophils # Man Lymphocytes # (Manual) Monocytes # (Manual) Eosinophils # (Manual) Basophils # (Manual) PT INR APTT D-Dimer Heparin Anti-Xa Level 0.24 L ABG pH ABG pO2 ABG HCO3 ABG O2 Saturation ABG Base Excess ABG Hemoglobin Oxyhemoglobin Sodium Potassium Chloride Carbon Dioxide BUN 52 H Creatinine 1.4 H Glucose 185 H POC Glucose 172 H Hemoglobin A1c Lactic Acid Calcium 7.8 L Phosphorus Magnesium Ferritin AST ALT Alkaline Phosphatase Lactate Dehydrogenase Troponin T C-Reactive Protein Total Protein Albumin LDL Cholesterol Direct Urine Creatinine Urine Total Protein Salicylates Acetaminophen Crossmatch 11/10/21 11/10/21 11/10/21 02:00 04:17 04:17 WBC 24.5 H RBC 2.75 L Hgb 7.5 L Hct 22.9 L MCH 27 L RDW Plt Count Lymph % (Auto) [place] % (Auto) Lymph # (Auto) [place] # (Auto) Seg Neutrophils % Seg Neuts % (Manual) Lymphocytes % (Manual) Monocytes % (Manual) Basophils % (Manual) Nucleated RBC % Seg Neutrophils # Seg Neutrophils # Man Lymphocytes # (Manual) Monocytes # (Manual) Eosinophils # (Manual) Basophils # (Manual) PT INR APTT D-Dimer Heparin Anti-Xa Level 0.26 L ABG pH ABG pO2 ABG HCO3 ABG O2 Saturation ABG Base Excess ABG Hemoglobin Oxyhemoglobin Sodium Potassium 2.9 L* Chloride Carbon Dioxide 35 H BUN 48 H Creatinine Glucose 212 H POC Glucose Hemoglobin A1c Lactic Acid Calcium 8.1 L Phosphorus Magnesium Ferritin AST ALT Alkaline Phosphatase Lactate Dehydrogenase Troponin T C-Reactive Protein Total Protein Albumin LDL Cholesterol Direct Urine Creatinine Urine Total Protein Salicylates Acetaminophen Crossmatch 11/10/21 11/10/21 11/10/21 05:01 08:39 11:03 WBC RBC Hgb Hct MCH RDW Plt Count Lymph % (Auto) [place] % (Auto) Lymph # (Auto) [place] # (Auto) Seg Neutrophils % Seg Neuts % (Manual) Lymphocytes % (Manual) Monocytes % (Manual) Basophils % (Manual) Nucleated RBC % Seg Neutrophils # Seg Neutrophils # Man Lymphocytes # (Manual) Monocytes # (Manual) Eosinophils # (Manual) Basophils # (Manual) PT INR APTT D-Dimer Heparin Anti-Xa Level 0.12 L ABG pH ABG pO2 ABG HCO3 ABG O2 Saturation ABG Base Excess ABG Hemoglobin Oxyhemoglobin Sodium Potassium Chloride Carbon Dioxide BUN Creatinine Glucose POC Glucose 203 H 152 H Hemoglobin A1c Lactic Acid Calcium Phosphorus Magnesium Ferritin AST ALT Alkaline Phosphatase Lactate Dehydrogenase Troponin T C-Reactive Protein Total Protein Albumin LDL Cholesterol Direct Urine Creatinine Urine Total Protein Salicylates Acetaminophen Crossmatch 11/10/21 11/10/21 11/10/21 12:45 15:43 21:05 WBC RBC Hgb Hct MCH RDW Plt Count Lymph % (Auto) [place] % (Auto) Lymph # (Auto) [place]y # (Auto) Seg Neutrophils % Seg Neuts % (Manual) Lymphocytes % (Manual) Monocytes % (Manual) Basophils % (Manual) Nucleated RBC % Seg Neutrophils # Seg Neutrophils # Man Lymphocytes # (Manual) Monocytes # (Manual) Eosinophils # (Manual) Basophils # (Manual) PT INR APTT D-Dimer Heparin Anti-Xa Level ABG pH ABG pO2 ABG HCO3 ABG O2 Saturation ABG Base Excess ABG Hemoglobin Oxyhemoglobin Sodium 146 H Potassium 3.3 L Chloride Carbon Dioxide 31 H BUN 43 H Creatinine Glucose 155 H POC Glucose 139 H 139 H Hemoglobin A1c Lactic Acid Calcium 8.3 L Phosphorus Magnesium Ferritin AST ALT Alkaline Phosphatase Lactate Dehydrogenase Troponin T C-Reactive Protein Total Protein Albumin LDL Cholesterol Direct Urine Creatinine Urine Total Protein Salicylates Acetaminophen Crossmatch 11/10/21 11/11/21 11/11/21 23:25 03:49 03:49 WBC 22.1 H RBC 2.69 L Hgb 7.2 L Hct 22.7 L MCH 27 L RDW Plt Count Lymph % (Auto) [place] % (Auto) Lymph # (Auto) [place] # (Auto) Seg Neutrophils % Seg Neuts % (Manual) Lymphocytes % (Manual) Monocytes % (Manual) Basophils % (Manual) Nucleated RBC % Seg Neutrophils # Seg Neutrophils # Man Lymphocytes # (Manual) Monocytes # (Manual) Eosinophils # (Manual) Basophils # (Manual) PT INR APTT D-Dimer Heparin Anti-Xa Level ABG pH ABG pO2 ABG HCO3 ABG O2 Saturation ABG Base Excess ABG Hemoglobin Oxyhemoglobin Sodium Potassium Chloride Carbon Dioxide 32 H BUN 44 H Creatinine 1.3 H Glucose 173 H POC Glucose 146 H Hemoglobin A1c Lactic Acid Calcium Phosphorus Magnesium Ferritin AST ALT Alkaline Phosphatase Lactate Dehydrogenase Troponin T C-Reactive Protein Total Protein Albumin LDL Cholesterol Direct Urine Creatinine Urine Total Protein Salicylates Acetaminophen Crossmatch 11/11/21 11/11/21 11/11/21 05:03 10:50 11:32 WBC RBC Hgb Hct MCH RDW Plt Count Lymph % (Auto) [place] % (Auto) Lymph # (Auto) [place] # (Auto) Seg Neutrophils % Seg Neuts % (Manual) Lymphocytes % (Manual) Monocytes % (Manual) Basophils % (Manual) Nucleated RBC % Seg Neutrophils # Seg Neutrophils # Man Lymphocytes # (Manual) Monocytes # (Manual) Eosinophils # (Manual) Basophils # (Manual) PT INR APTT D-Dimer Heparin Anti-Xa Level ABG pH ABG pO2 ABG HCO3 ABG O2 Saturation ABG Base Excess ABG Hemoglobin Oxyhemoglobin Sodium Potassium Chloride Carbon Dioxide BUN Creatinine Glucose POC Glucose 152 H 129 H 133 H Hemoglobin A1c Lactic Acid Calcium Phosphorus Magnesium Ferritin AST ALT Alkaline Phosphatase Lactate Dehydrogenase Troponin T C-Reactive Protein Total Protein Albumin LDL Cholesterol Direct Urine Creatinine Urine Total Protein Salicylates Acetaminophen Crossmatch 11/11/21 11/11/21 11/11/21 13:53 16:31 17:13 WBC RBC Hgb Hct MCH RDW Plt Count Lymph % (Auto) Emery % (Auto) Lymph # (Auto) Emery # (Auto) Seg Neutrophils % Seg Neuts % (Manual) Lymphocytes % (Manual) Monocytes % (Manual) Basophils % (Manual) Nucleated RBC % Seg Neutrophils # Seg Neutrophils # Man Lymphocytes # (Manual) Monocytes # (Manual) Eosinophils # (Manual) Basophils # (Manual) PT INR APTT D-Dimer Heparin Anti-Xa Level ABG pH 7.475 H ABG pO2 64.1 L ABG HCO3 32.4 H ABG O2 Saturation ABG Base Excess 8.0 H ABG Hemoglobin 7.6 L Oxyhemoglobin 94.0 L Sodium Potassium Chloride Carbon Dioxide BUN Creatinine Glucose POC Glucose 116 H 125 H Hemoglobin A1c Lactic Acid Calcium Phosphorus Magnesium Ferritin AST ALT Alkaline Phosphatase Lactate Dehydrogenase Troponin T C-Reactive Protein Total Protein Albumin LDL Cholesterol Direct Urine Creatinine Urine Total Protein Salicylates Acetaminophen Crossmatch 11/11/21 11/11/21 11/12/21 20:40 23:35 03:30 WBC 17.7 H RBC 2.37 L Hgb 6.3 L Hct 20.0 L MCH 27 L RDW 15.5 H Plt Count Lymph % (Auto) Emery % (Auto) Lymph # (Auto) Emery # (Auto) Seg Neutrophils % Seg Neuts % (Manual) Lymphocytes % (Manual) Monocytes % (Manual) Basophils % (Manual) Nucleated RBC % Seg Neutrophils # Seg Neutrophils # Man Lymphocytes # (Manual) Monocytes # (Manual) Eosinophils # (Manual) Basophils # (Manual) PT INR APTT D-Dimer Heparin Anti-Xa Level 0.26 L ABG pH ABG pO2 ABG HCO3 ABG O2 Saturation ABG Base Excess ABG Hemoglobin Oxyhemoglobin Sodium Potassium Chloride Carbon Dioxide BUN Creatinine Glucose POC Glucose 118 H Hemoglobin A1c Lactic Acid Calcium Phosphorus Magnesium Ferritin AST ALT Alkaline Phosphatase Lactate Dehydrogenase Troponin T C-Reactive Protein Total Protein Albumin LDL Cholesterol Direct Urine Creatinine Urine Total Protein Salicylates Acetaminophen Crossmatch 11/12/21 11/12/21 11/12/21 03:30 04:15 11:53 WBC RBC Hgb Hct MCH RDW Plt Count Lymph % (Auto) [place]y % (Auto) Lymph # (Auto) Emery # (Auto) Seg Neutrophils % Seg Neuts % (Manual) Lymphocytes % (Manual) Monocytes % (Manual) Basophils % (Manual) Nucleated RBC % Seg Neutrophils # Seg Neutrophils # Man Lymphocytes # (Manual) Monocytes # (Manual) Eosinophils # (Manual) Basophils # (Manual) PT INR APTT D-Dimer Heparin Anti-Xa Level ABG pH ABG pO2 ABG HCO3 ABG O2 Saturation ABG Base Excess ABG Hemoglobin Oxyhemoglobin Sodium Potassium Chloride Carbon Dioxide 33 H BUN 38 H Creatinine 1.3 H Glucose 102 H POC Glucose 62 L Hemoglobin A1c Lactic Acid Calcium 8.2 L Phosphorus Magnesium Ferritin AST ALT Alkaline Phosphatase Lactate Dehydrogenase Troponin T C-Reactive Protein Total Protein Albumin LDL Cholesterol Direct Urine Creatinine Urine Total Protein Salicylates Acetaminophen Crossmatch See Detail 11/12/21 11/12/21 11/12/21 17:20 19:14 23:11 WBC RBC Hgb 6.2 L Hct 19.5 L* MCH RDW Plt Count Lymph % (Auto) [place]y % (Auto) Lymph # (Auto) [place]y # (Auto) Seg Neutrophils % Seg Neuts % (Manual) Lymphocytes % (Manual) Monocytes % (Manual) Basophils % (Manual) Nucleated RBC % Seg Neutrophils # Seg Neutrophils # Man Lymphocytes # (Manual) Monocytes # (Manual) Eosinophils # (Manual) Basophils # (Manual) PT INR APTT D-Dimer Heparin Anti-Xa Level ABG pH ABG pO2 ABG HCO3 ABG O2 Saturation ABG Base Excess ABG Hemoglobin Oxyhemoglobin Sodium Potassium Chloride Carbon Dioxide BUN Creatinine Glucose POC Glucose 115 H 131 H Hemoglobin A1c Lactic Acid Calcium Phosphorus Magnesium Ferritin AST ALT Alkaline Phosphatase Lactate Dehydrogenase Troponin T C-Reactive Protein Total Protein Albumin LDL Cholesterol Direct Urine Creatinine Urine Total Protein Salicylates Acetaminophen Crossmatch 11/13/21 11/13/21 11/13/21 00:13 04:17 04:17 WBC 23.8 H RBC 2.84 L Hgb 7.4 L 7.8 L Hct 23.3 L 24.9 L MCH 27 L RDW 15.4 H Plt Count Lymph % (Auto) [place]y % (Auto) Lymph # (Auto) [place]y # (Auto) Seg Neutrophils % Seg Neuts % (Manual) Lymphocytes % (Manual) Monocytes % (Manual) Basophils % (Manual) Nucleated RBC % Seg Neutrophils # Seg Neutrophils # Man Lymphocytes # (Manual) Monocytes # (Manual) Eosinophils # (Manual) Basophils # (Manual) PT INR APTT D-Dimer Heparin Anti-Xa Level ABG pH ABG pO2 ABG HCO3 ABG O2 Saturation ABG Base Excess ABG Hemoglobin Oxyhemoglobin Sodium 146 H Potassium Chloride Carbon Dioxide BUN 44 H Creatinine 1.6 H Glucose 144 H POC Glucose Hemoglobin A1c Lactic Acid Calcium 7.9 L Phosphorus 5.10 H D Magnesium Ferritin AST ALT Alkaline Phosphatase Lactate Dehydrogenase Troponin T C-Reactive Protein Total Protein Albumin LDL Cholesterol Direct Urine Creatinine Urine Total Protein Salicylates Acetaminophen Crossmatch 11/13/21 11/13/21 11/13/21 05:52 10:54 15:57 WBC RBC Hgb Hct MCH RDW Plt Count Lymph % (Auto) [place]y % (Auto) Lymph # (Auto) [place]y # (Auto) Seg Neutrophils % Seg Neuts % (Manual) Lymphocytes % (Manual) Monocytes % (Manual) Basophils % (Manual) Nucleated RBC % Seg Neutrophils # Seg Neutrophils # Man Lymphocytes # (Manual) Monocytes # (Manual) Eosinophils # (Manual) Basophils # (Manual) PT INR APTT D-Dimer Heparin Anti-Xa Level ABG pH ABG pO2 ABG HCO3 ABG O2 Saturation ABG Base Excess ABG Hemoglobin Oxyhemoglobin Sodium Potassium Chloride Carbon Dioxide BUN Creatinine Glucose POC Glucose 123 H 147 H 207 H Hemoglobin A1c Lactic Acid Calcium Phosphorus Magnesium Ferritin AST ALT Alkaline Phosphatase Lactate Dehydrogenase Troponin T C-Reactive Protein Total Protein Albumin LDL Cholesterol Direct Urine Creatinine Urine Total Protein Salicylates Acetaminophen Crossmatch 11/13/21 11/13/21 11/14/21 16:01 23:18 04:55 WBC 23.9 H RBC 2.86 L Hgb 6.5 L 8.3 L Hct 20.3 L 24.5 L MCH RDW Plt Count Lymph % (Auto) [place]y % (Auto) Lymph # (Auto) [place]y # (Auto) Seg Neutrophils % Seg Neuts % (Manual) Lymphocytes % (Manual) Monocytes % (Manual) Basophils % (Manual) Nucleated RBC % Seg Neutrophils # Seg Neutrophils # Man Lymphocytes # (Manual) Monocytes # (Manual) Eosinophils # (Manual) Basophils # (Manual) PT INR APTT D-Dimer Heparin Anti-Xa Level ABG pH ABG pO2 ABG HCO3 ABG O2 Saturation ABG Base Excess ABG Hemoglobin Oxyhemoglobin Sodium Potassium Chloride Carbon Dioxide BUN Creatinine Glucose POC Glucose 209 H Hemoglobin A1c Lactic Acid Calcium Phosphorus Magnesium Ferritin AST ALT Alkaline Phosphatase Lactate Dehydrogenase Troponin T C-Reactive Protein Total Protein Albumin LDL Cholesterol Direct Urine Creatinine Urine Total Protein Salicylates Acetaminophen Crossmatch 11/14/21 11/14/21 11/14/21 04:55 05:09 11:35 WBC RBC Hgb Hct MCH RDW Plt Count Lymph % (Auto) [place]y % (Auto) Lymph # (Auto) [place]y # (Auto) Seg Neutrophils % Seg Neuts % (Manual) Lymphocytes % (Manual) Monocytes % (Manual) Basophils % (Manual) Nucleated RBC % Seg Neutrophils # Seg Neutrophils # Man Lymphocytes # (Manual) Monocytes # (Manual) Eosinophils # (Manual) Basophils # (Manual) PT INR APTT D-Dimer Heparin Anti-Xa Level ABG pH ABG pO2 ABG HCO3 ABG O2 Saturation ABG Base Excess ABG Hemoglobin Oxyhemoglobin Sodium 148 H Potassium Chloride 109.0 H Carbon Dioxide BUN 42 H Creatinine 1.6 H Glucose 184 H POC Glucose 169 H 154 H Hemoglobin A1c Lactic Acid Calcium 8.0 L Phosphorus Magnesium Ferritin AST ALT Alkaline Phosphatase Lactate Dehydrogenase Troponin T C-Reactive Protein Total Protein Albumin LDL Cholesterol Direct Urine Creatinine Urine Total Protein Salicylates Acetaminophen Crossmatch 11/14/21 11/14/21 11/15/21 16:57 23:11 04:36 WBC RBC Hgb Hct MCH RDW Plt Count Lymph % (Auto) [place]y % (Auto) Lymph # (Auto) [place]y # (Auto) Seg Neutrophils % Seg Neuts % (Manual) Lymphocytes % (Manual) Monocytes % (Manual) Basophils % (Manual) Nucleated RBC % Seg Neutrophils # Seg Neutrophils # Man Lymphocytes # (Manual) Monocytes # (Manual) Eosinophils # (Manual) Basophils # (Manual) PT INR APTT D-Dimer Heparin Anti-Xa Level ABG pH ABG pO2 ABG HCO3 ABG O2 Saturation ABG Base Excess ABG Hemoglobin Oxyhemoglobin Sodium 151 H Potassium Chloride 111.2 H Carbon Dioxide BUN 36 H Creatinine 1.3 H Glucose 136 H POC Glucose 124 H 118 H Hemoglobin A1c Lactic Acid Calcium 8.1 L Phosphorus Magnesium Ferritin AST ALT Alkaline Phosphatase Lactate Dehydrogenase Troponin T C-Reactive Protein Total Protein Albumin LDL Cholesterol Direct Urine Creatinine Urine Total Protein Salicylates Acetaminophen Crossmatch 11/15/21 11/15/21 11/16/21 11:18 21:49 00:15 WBC RBC Hgb Hct MCH RDW Plt Count Lymph % (Auto) [place] % (Auto) Lymph # (Auto) [place]y # (Auto) Seg Neutrophils % Seg Neuts % (Manual) Lymphocytes % (Manual) Monocytes % (Manual) Basophils % (Manual) Nucleated RBC % Seg Neutrophils # Seg Neutrophils # Man Lymphocytes # (Manual) Monocytes # (Manual) Eosinophils # (Manual) Basophils # (Manual) PT INR APTT D-Dimer Heparin Anti-Xa Level ABG pH ABG pO2 ABG HCO3 ABG O2 Saturation ABG Base Excess ABG Hemoglobin Oxyhemoglobin Sodium Potassium Chloride Carbon Dioxide BUN Creatinine Glucose POC Glucose 154 H 154 H 146 H Hemoglobin A1c Lactic Acid Calcium Phosphorus Magnesium Ferritin AST ALT Alkaline Phosphatase Lactate Dehydrogenase Troponin T C-Reactive Protein Total Protein Albumin LDL Cholesterol Direct Urine Creatinine Urine Total Protein Salicylates Acetaminophen Crossmatch 11/16/21 11/16/21 11/16/21 05:11 05:11 05:37 WBC 18.2 H RBC 2.92 L Hgb 8.3 L Hct 26.1 L MCH RDW 15.8 H Plt Count Lymph % (Auto) 6.3 L [place]y % (Auto) 10.2 H Lymph # (Auto) [place]y # (Auto) 1.9 H Seg Neutrophils % 81.7 H Seg Neuts % (Manual) Lymphocytes % (Manual) Monocytes % (Manual) Basophils % (Manual) Nucleated RBC % Seg Neutrophils # 14.9 H Seg Neutrophils # Man Lymphocytes # (Manual) Monocytes # (Manual) Eosinophils # (Manual) Basophils # (Manual) PT INR APTT D-Dimer Heparin Anti-Xa Level ABG pH ABG pO2 ABG HCO3 ABG O2 Saturation ABG Base Excess ABG Hemoglobin Oxyhemoglobin Sodium 146 H Potassium Chloride 108.0 H Carbon Dioxide BUN 25 H Creatinine Glucose 123 H POC Glucose 109 H Hemoglobin A1c Lactic Acid Calcium 7.8 L Phosphorus Magnesium Ferritin AST ALT Alkaline Phosphatase Lactate Dehydrogenase Troponin T C-Reactive Protein Total Protein Albumin LDL Cholesterol Direct Urine Creatinine Urine Total Protein Salicylates Acetaminophen Crossmatch 11/16/21 11/16/21 11/17/21 11:22 23:55 04:33 WBC RBC Hgb Hct MCH RDW Plt Count Lymph % (Auto) [place] % (Auto) Lymph # (Auto) [place]y # (Auto) Seg Neutrophils % Seg Neuts % (Manual) Lymphocytes % (Manual) Monocytes % (Manual) Basophils % (Manual) Nucleated RBC % Seg Neutrophils # Seg Neutrophils # Man Lymphocytes # (Manual) Monocytes # (Manual) Eosinophils # (Manual) Basophils # (Manual) PT INR APTT D-Dimer Heparin Anti-Xa Level ABG pH ABG pO2 ABG HCO3 ABG O2 Saturation ABG Base Excess ABG Hemoglobin Oxyhemoglobin Sodium Potassium Chloride Carbon Dioxide BUN 20 H Creatinine Glucose POC Glucose 136 H 113 H Hemoglobin A1c Lactic Acid Calcium 7.5 L Phosphorus Magnesium Ferritin AST ALT Alkaline Phosphatase Lactate Dehydrogenase Troponin T C-Reactive Protein Total Protein Albumin LDL Cholesterol Direct Urine Creatinine Urine Total Protein Salicylates Acetaminophen Crossmatch 11/17/21 11/18/21 11/18/21 23:22 04:53 04:53 WBC 13.0 H RBC 2.99 L Hgb 8.5 L Hct 26.4 L MCH RDW Plt Count Lymph % (Auto) 9.5 L [place]y % (Auto) 9.8 H Lymph # (Auto) [place]y # (Auto) 1.3 H Seg Neutrophils % 78.3 H Seg Neuts % (Manual) Lymphocytes % (Manual) Monocytes % (Manual) Basophils % (Manual) Nucleated RBC % Seg Neutrophils # 10.2 H Seg Neutrophils # Man Lymphocytes # (Manual) Monocytes # (Manual) Eosinophils # (Manual) Basophils # (Manual) PT INR APTT D-Dimer Heparin Anti-Xa Level ABG pH ABG pO2 ABG HCO3 ABG O2 Saturation ABG Base Excess ABG Hemoglobin Oxyhemoglobin Sodium Potassium Chloride Carbon Dioxide BUN 18 H Creatinine Glucose 106 H POC Glucose 112 H Hemoglobin A1c Lactic Acid Calcium 8.1 L Phosphorus Magnesium Ferritin AST ALT Alkaline Phosphatase Lactate Dehydrogenase Troponin T C-Reactive Protein Total Protein Albumin LDL Cholesterol Direct Urine Creatinine Urine Total Protein Salicylates Acetaminophen Crossmatch 11/18/21 11/18/21 11/19/21 11:35 17:42 14:38 WBC RBC Hgb Hct MCH RDW Plt Count Lymph % (Auto) [place]y % (Auto) Lymph # (Auto) [place]y # (Auto) Seg Neutrophils % Seg Neuts % (Manual) Lymphocytes % (Manual) Monocytes % (Manual) Basophils % (Manual) Nucleated RBC % Seg Neutrophils # Seg Neutrophils # Man Lymphocytes # (Manual) Monocytes # (Manual) Eosinophils # (Manual) Basophils # (Manual) PT INR APTT D-Dimer Heparin Anti-Xa Level ABG pH ABG pO2 ABG HCO3 ABG O2 Saturation ABG Base Excess ABG Hemoglobin Oxyhemoglobin Sodium Potassium Chloride 97.5 L Carbon Dioxide 31 H BUN Creatinine Glucose 146 H POC Glucose 143 H 132 H Hemoglobin A1c Lactic Acid Calcium Phosphorus Magnesium 1.60 L Ferritin AST ALT Alkaline Phosphatase Lactate Dehydrogenase Troponin T C-Reactive Protein Total Protein Albumin LDL Cholesterol Direct Urine Creatinine Urine Total Protein Salicylates Acetaminophen Crossmatch 11/19/21 11/19/21 11/20/21 16:24 23:58 07:42 WBC RBC 3.01 L Hgb 8.6 L Hct 26.7 L MCH RDW 15.4 H Plt Count Lymph % (Auto) [place]y % (Auto) Lymph # (Auto) [place]y # (Auto) Seg Neutrophils % Seg Neuts % (Manual) Lymphocytes % (Manual) Monocytes % (Manual) Basophils % (Manual) Nucleated RBC % Seg Neutrophils # Seg Neutrophils # Man Lymphocytes # (Manual) Monocytes # (Manual) Eosinophils # (Manual) Basophils # (Manual) PT INR APTT D-Dimer Heparin Anti-Xa Level ABG pH ABG pO2 ABG HCO3 ABG O2 Saturation ABG Base Excess ABG Hemoglobin Oxyhemoglobin Sodium Potassium Chloride Carbon Dioxide BUN Creatinine Glucose POC Glucose 129 H 125 H Hemoglobin A1c Lactic Acid Calcium Phosphorus Magnesium Ferritin AST ALT Alkaline Phosphatase Lactate Dehydrogenase Troponin T C-Reactive Protein Total Protein Albumin LDL Cholesterol Direct Urine Creatinine Urine Total Protein Salicylates Acetaminophen Crossmatch 11/20/21 11/20/21 11/20/21 07:42 11:25 22:59 WBC RBC Hgb Hct MCH RDW Plt Count Lymph % (Auto) [place]y % (Auto) Lymph # (Auto) [place]y # (Auto) Seg Neutrophils % Seg Neuts % (Manual) Lymphocytes % (Manual) Monocytes % (Manual) Basophils % (Manual) Nucleated RBC % Seg Neutrophils # Seg Neutrophils # Man Lymphocytes # (Manual) Monocytes # (Manual) Eosinophils # (Manual) Basophils # (Manual) PT INR APTT D-Dimer Heparin Anti-Xa Level ABG pH ABG pO2 ABG HCO3 ABG O2 Saturation ABG Base Excess ABG Hemoglobin Oxyhemoglobin Sodium Potassium Chloride Carbon Dioxide 31 H BUN Creatinine Glucose POC Glucose 116 H 113 H Hemoglobin A1c Lactic Acid Calcium Phosphorus Magnesium Ferritin AST ALT Alkaline Phosphatase Lactate Dehydrogenase Troponin T C-Reactive Protein Total Protein Albumin LDL Cholesterol Direct Urine Creatinine Urine Total Protein Salicylates Acetaminophen Crossmatch 11/21/21 11/22/21 11/22/21 10:50 05:10 16:12 WBC RBC Hgb Hct MCH RDW Plt Count Lymph % (Auto) [place]y % (Auto) Lymph # (Auto) [place]y # (Auto) Seg Neutrophils % Seg Neuts % (Manual) Lymphocytes % (Manual) Monocytes % (Manual) Basophils % (Manual) Nucleated RBC % Seg Neutrophils # Seg Neutrophils # Man Lymphocytes # (Manual) Monocytes # (Manual) Eosinophils # (Manual) Basophils # (Manual) PT INR APTT D-Dimer Heparin Anti-Xa Level ABG pH ABG pO2 ABG HCO3 ABG O2 Saturation ABG Base Excess ABG Hemoglobin Oxyhemoglobin Sodium Potassium Chloride Carbon Dioxide 32 H BUN Creatinine Glucose POC Glucose 156 H 110 H Hemoglobin A1c Lactic Acid Calcium 8.1 L Phosphorus Magnesium Ferritin AST ALT Alkaline Phosphatase Lactate Dehydrogenase Troponin T C-Reactive Protein Total Protein Albumin LDL Cholesterol Direct Urine Creatinine Urine Total Protein Salicylates Acetaminophen Crossmatch 11/23/21 11/23/21 11/23/21 07:18 07:18 11:45 WBC RBC 3.23 L Hgb 9.1 L Hct 28.5 L MCH RDW 15.6 H Plt Count Lymph % (Auto) [place]y % (Auto) Lymph # (Auto) [place]y # (Auto) Seg Neutrophils % Seg Neuts % (Manual) Lymphocytes % (Manual) Monocytes % (Manual) Basophils % (Manual) Nucleated RBC % Seg Neutrophils # Seg Neutrophils # Man Lymphocytes # (Manual) Monocytes # (Manual) Eosinophils # (Manual) Basophils # (Manual) PT INR APTT D-Dimer Heparin Anti-Xa Level ABG pH ABG pO2 ABG HCO3 ABG O2 Saturation ABG Base Excess ABG Hemoglobin Oxyhemoglobin Sodium Potassium 3.3 L Chloride 96.8 L Carbon Dioxide 32 H BUN Creatinine Glucose POC Glucose 140 H Hemoglobin A1c Lactic Acid Calcium Phosphorus Magnesium Ferritin AST ALT Alkaline Phosphatase Lactate Dehydrogenase Troponin T C-Reactive Protein Total Protein Albumin LDL Cholesterol Direct Urine Creatinine Urine Total Protein Salicylates Acetaminophen Crossmatch 11/23/21 11/23/21 11/24/21 16:40 23:45 07:19 WBC RBC 3.12 L Hgb 9.3 L Hct 27.2 L MCH RDW 16.0 H Plt Count Lymph % (Auto) 10.3 L [place]y % (Auto) 10.0 H Lymph # (Auto) 1.1 L Emery # (Auto) 1.1 H Seg Neutrophils % 75.2 H Seg Neuts % (Manual) Lymphocytes % (Manual) Monocytes % (Manual) Basophils % (Manual) Nucleated RBC % Seg Neutrophils # 7.9 H Seg Neutrophils # Man Lymphocytes # (Manual) Monocytes # (Manual) Eosinophils # (Manual) Basophils # (Manual) PT INR APTT D-Dimer Heparin Anti-Xa Level ABG pH ABG pO2 ABG HCO3 ABG O2 Saturation ABG Base Excess ABG Hemoglobin Oxyhemoglobin Sodium Potassium Chloride Carbon Dioxide BUN Creatinine Glucose POC Glucose 140 H 138 H Hemoglobin A1c Lactic Acid Calcium Phosphorus Magnesium Ferritin AST ALT Alkaline Phosphatase Lactate Dehydrogenase Troponin T C-Reactive Protein Total Protein Albumin LDL Cholesterol Direct Urine Creatinine Urine Total Protein Salicylates Acetaminophen Crossmatch 11/24/21 11/24/21 11/24/21 07:19 11:49 15:54 WBC RBC Hgb Hct MCH RDW Plt Count Lymph % (Auto) [place]y % (Auto) Lymph # (Auto) [place]y # (Auto) Seg Neutrophils % Seg Neuts % (Manual) Lymphocytes % (Manual) Monocytes % (Manual) Basophils % (Manual) Nucleated RBC % Seg Neutrophils # Seg Neutrophils # Man Lymphocytes # (Manual) Monocytes # (Manual) Eosinophils # (Manual) Basophils # (Manual) PT INR APTT D-Dimer Heparin Anti-Xa Level ABG pH ABG pO2 ABG HCO3 ABG O2 Saturation ABG Base Excess ABG Hemoglobin Oxyhemoglobin Sodium Potassium 3.2 L Chloride 96.7 L Carbon Dioxide BUN Creatinine Glucose 125 H POC Glucose 118 H 106 H Hemoglobin A1c Lactic Acid Calcium Phosphorus Magnesium Ferritin AST ALT Alkaline Phosphatase Lactate Dehydrogenase Troponin T C-Reactive Protein Total Protein Albumin LDL Cholesterol Direct Urine Creatinine Urine Total Protein Salicylates Acetaminophen Crossmatch 11/25/21 11/25/21 11/25/21 11:49 15:41 20:51 WBC RBC Hgb Hct MCH RDW Plt Count Lymph % (Auto) [place]y % (Auto) Lymph # (Auto) [place]y # (Auto) Seg Neutrophils % Seg Neuts % (Manual) Lymphocytes % (Manual) Monocytes % (Manual) Basophils % (Manual) Nucleated RBC % Seg Neutrophils # Seg Neutrophils # Man Lymphocytes # (Manual) Monocytes # (Manual) Eosinophils # (Manual) Basophils # (Manual) PT INR APTT D-Dimer Heparin Anti-Xa Level ABG pH ABG pO2 ABG HCO3 ABG O2 Saturation ABG Base Excess ABG Hemoglobin Oxyhemoglobin Sodium Potassium Chloride Carbon Dioxide BUN Creatinine Glucose POC Glucose 119 H 110 H 109 H Hemoglobin A1c Lactic Acid Calcium Phosphorus Magnesium Ferritin AST ALT Alkaline Phosphatase Lactate Dehydrogenase Troponin T C-Reactive Protein Total Protein Albumin LDL Cholesterol Direct Urine Creatinine Urine Total Protein Salicylates Acetaminophen Crossmatch 11/26/21 11/26/21 11/26/21 07:33 11:20 17:03 WBC RBC Hgb Hct MCH RDW Plt Count Lymph % (Auto) [place]y % (Auto) Lymph # (Auto) [place]y # (Auto) Seg Neutrophils % Seg Neuts % (Manual) Lymphocytes % (Manual) Monocytes % (Manual) Basophils % (Manual) Nucleated RBC % Seg Neutrophils # Seg Neutrophils # Man Lymphocytes # (Manual) Monocytes # (Manual) Eosinophils # (Manual) Basophils # (Manual) PT INR APTT D-Dimer Heparin Anti-Xa Level ABG pH ABG pO2 ABG HCO3 ABG O2 Saturation ABG Base Excess ABG Hemoglobin Oxyhemoglobin Sodium Potassium Chloride Carbon Dioxide BUN Creatinine Glucose POC Glucose 158 H 162 H 144 H Hemoglobin A1c Lactic Acid Calcium Phosphorus Magnesium Ferritin AST ALT Alkaline Phosphatase Lactate Dehydrogenase Troponin T C-Reactive Protein Total Protein Albumin LDL Cholesterol Direct Urine Creatinine Urine Total Protein Salicylates Acetaminophen Crossmatch 11/26/21 11/27/21 11/27/21 21:51 07:44 12:20 WBC RBC Hgb Hct MCH RDW Plt Count Lymph % (Auto) [place]y % (Auto) Lymph # (Auto) [place]y # (Auto) Seg Neutrophils % Seg Neuts % (Manual) Lymphocytes % (Manual) Monocytes % (Manual) Basophils % (Manual) Nucleated RBC % Seg Neutrophils # Seg Neutrophils # Man Lymphocytes # (Manual) Monocytes # (Manual) Eosinophils # (Manual) Basophils # (Manual) PT INR APTT D-Dimer Heparin Anti-Xa Level ABG pH ABG pO2 ABG HCO3 ABG O2 Saturation ABG Base Excess ABG Hemoglobin Oxyhemoglobin Sodium Potassium Chloride Carbon Dioxide BUN Creatinine Glucose POC Glucose 132 H 129 H 128 H Hemoglobin A1c Lactic Acid Calcium Phosphorus Magnesium Ferritin AST ALT Alkaline Phosphatase Lactate Dehydrogenase Troponin T C-Reactive Protein Total Protein Albumin LDL Cholesterol Direct Urine Creatinine Urine Total Protein Salicylates Acetaminophen Crossmatch 11/27/21 11/27/21 11/28/21 16:44 21:35 07:54 WBC RBC Hgb Hct MCH RDW Plt Count Lymph % (Auto) [place]y % (Auto) Lymph # (Auto) [place]y # (Auto) Seg Neutrophils % Seg Neuts % (Manual) Lymphocytes % (Manual) Monocytes % (Manual) Basophils % (Manual) Nucleated RBC % Seg Neutrophils # Seg Neutrophils # Man Lymphocytes # (Manual) Monocytes # (Manual) Eosinophils # (Manual) Basophils # (Manual) PT INR APTT D-Dimer Heparin Anti-Xa Level ABG pH ABG pO2 ABG HCO3 ABG O2 Saturation ABG Base Excess ABG Hemoglobin Oxyhemoglobin Sodium Potassium Chloride Carbon Dioxide BUN Creatinine Glucose POC Glucose 126 H 131 H 124 H Hemoglobin A1c Lactic Acid Calcium Phosphorus Magnesium Ferritin AST ALT Alkaline Phosphatase Lactate Dehydrogenase Troponin T C-Reactive Protein Total Protein Albumin LDL Cholesterol Direct Urine Creatinine Urine Total Protein Salicylates Acetaminophen Crossmatch 11/28/21 11/28/21 11/28/21 11:27 11:56 16:34 WBC 12.3 H RBC 3.18 L Hgb 9.2 L Hct 27.8 L MCH RDW 16.1 H Plt Count Lymph % (Auto) 10.9 L [place]y % (Auto) 13.7 H Lymph # (Auto) Emery # (Auto) 1.7 H Seg Neutrophils % 72.2 H Seg Neuts % (Manual) Lymphocytes % (Manual) Monocytes % (Manual) Basophils % (Manual) Nucleated RBC % Seg Neutrophils # 8.9 H Seg Neutrophils # Man Lymphocytes # (Manual) Monocytes # (Manual) Eosinophils # (Manual) Basophils # (Manual) PT INR APTT D-Dimer Heparin Anti-Xa Level ABG pH ABG pO2 ABG HCO3 ABG O2 Saturation ABG Base Excess ABG Hemoglobin Oxyhemoglobin Sodium Potassium Chloride Carbon Dioxide BUN Creatinine Glucose POC Glucose 131 H 123 H Hemoglobin A1c Lactic Acid Calcium Phosphorus Magnesium Ferritin AST ALT Alkaline Phosphatase Lactate Dehydrogenase Troponin T C-Reactive Protein Total Protein Albumin LDL Cholesterol Direct Urine Creatinine Urine Total Protein Salicylates Acetaminophen Crossmatch 11/28/21 11/28/21 11/29/21 19:35 21:32 07:33 WBC RBC Hgb Hct MCH RDW Plt Count Lymph % (Auto) [place]y % (Auto) Lymph # (Auto) Emery # (Auto) Seg Neutrophils % Seg Neuts % (Manual) Lymphocytes % (Manual) Monocytes % (Manual) Basophils % (Manual) Nucleated RBC % Seg Neutrophils # Seg Neutrophils # Man Lymphocytes # (Manual) Monocytes # (Manual) Eosinophils # (Manual) Basophils # (Manual) PT INR APTT D-Dimer Heparin Anti-Xa Level 0.12 L ABG pH ABG pO2 ABG HCO3 ABG O2 Saturation ABG Base Excess ABG Hemoglobin Oxyhemoglobin Sodium Potassium Chloride Carbon Dioxide BUN Creatinine Glucose POC Glucose 110 H 108 H Hemoglobin A1c Lactic Acid Calcium Phosphorus Magnesium Ferritin AST ALT Alkaline Phosphatase Lactate Dehydrogenase Troponin T C-Reactive Protein Total Protein Albumin LDL Cholesterol Direct Urine Creatinine Urine Total Protein Salicylates Acetaminophen Crossmatch 11/29/21 11/29/21 11/29/21 11:29 13:51 15:25 WBC 13.0 H RBC 3.41 L Hgb 9.5 L Hct 29.9 L MCH RDW 16.2 H Plt Count Lymph % (Auto) 11.1 L [place]y % (Auto) 15.5 H Lymph # (Auto) Emery # (Auto) 2.0 H Seg Neutrophils % 71.8 H Seg Neuts % (Manual) Lymphocytes % (Manual) Monocytes % (Manual) Basophils % (Manual) Nucleated RBC % Seg Neutrophils # 9.3 H Seg Neutrophils # Man Lymphocytes # (Manual) Monocytes # (Manual) Eosinophils # (Manual) Basophils # (Manual) PT INR APTT D-Dimer Heparin Anti-Xa Level ABG pH ABG pO2 ABG HCO3 ABG O2 Saturation ABG Base Excess ABG Hemoglobin Oxyhemoglobin Sodium Potassium Chloride Carbon Dioxide BUN Creatinine Glucose POC Glucose 136 H 123 H Hemoglobin A1c Lactic Acid Calcium Phosphorus Magnesium Ferritin AST ALT Alkaline Phosphatase Lactate Dehydrogenase Troponin T C-Reactive Protein Total Protein Albumin LDL Cholesterol Direct Urine Creatinine Urine Total Protein Salicylates Acetaminophen Crossmatch 11/29/21 11/29/21 11/29/21 18:50 18:50 20:16 WBC RBC Hgb Hct MCH RDW Plt Count Lymph % (Auto) Emery % (Auto) Lymph # (Auto) Emery # (Auto) Seg Neutrophils % Seg Neuts % (Manual) Lymphocytes % (Manual) Monocytes % (Manual) Basophils % (Manual) Nucleated RBC % Seg Neutrophils # Seg Neutrophils # Man Lymphocytes # (Manual) Monocytes # (Manual) Eosinophils # (Manual) Basophils # (Manual) PT INR APTT D-Dimer Heparin Anti-Xa Level 0.21 L ABG pH ABG pO2 ABG HCO3 ABG O2 Saturation ABG Base Excess ABG Hemoglobin Oxyhemoglobin Sodium 126 L Potassium Chloride 86.3 L Carbon Dioxide BUN 38 H Creatinine 3.6 H Glucose 153 H POC Glucose 166 H Hemoglobin A1c Lactic Acid Calcium Phosphorus Magnesium Ferritin AST ALT Alkaline Phosphatase Lactate Dehydrogenase Troponin T C-Reactive Protein Total Protein Albumin LDL Cholesterol Direct Urine Creatinine Urine Total Protein Salicylates Acetaminophen Crossmatch 11/30/21 11/30/21 11/30/21 05:14 07:35 11:15 WBC RBC Hgb 8.7 L Hct 26.8 L MCH RDW Plt Count Lymph % (Auto) Emery % (Auto) Lymph # (Auto) Emery # (Auto) Seg Neutrophils % Seg Neuts % (Manual) Lymphocytes % (Manual) Monocytes % (Manual) Basophils % (Manual) Nucleated RBC % Seg Neutrophils # Seg Neutrophils # Man Lymphocytes # (Manual) Monocytes # (Manual) Eosinophils # (Manual) Basophils # (Manual) PT INR APTT D-Dimer Heparin Anti-Xa Level ABG pH ABG pO2 ABG HCO3 ABG O2 Saturation ABG Base Excess ABG Hemoglobin Oxyhemoglobin Sodium Potassium Chloride Carbon Dioxide BUN Creatinine Glucose POC Glucose 114 H 119 H Hemoglobin A1c Lactic Acid Calcium Phosphorus Magnesium Ferritin AST ALT Alkaline Phosphatase Lactate Dehydrogenase Troponin T C-Reactive Protein Total Protein Albumin LDL Cholesterol Direct Urine Creatinine Urine Total Protein Salicylates Acetaminophen Crossmatch 11/30/21 11/30/21 11/30/21 15:26 17:10 18:51 WBC RBC Hgb Hct MCH RDW Plt Count Lymph % (Auto) Emery % (Auto) Lymph # (Auto) Emery # (Auto) Seg Neutrophils % Seg Neuts % (Manual) Lymphocytes % (Manual) Monocytes % (Manual) Basophils % (Manual) Nucleated RBC % Seg Neutrophils # Seg Neutrophils # Man Lymphocytes # (Manual) Monocytes # (Manual) Eosinophils # (Manual) Basophils # (Manual) PT INR APTT D-Dimer Heparin Anti-Xa Level 0.10 L ABG pH ABG pO2 ABG HCO3 ABG O2 Saturation ABG Base Excess ABG Hemoglobin Oxyhemoglobin Sodium 126 L Potassium Chloride 86.5 L Carbon Dioxide BUN 42 H Creatinine 4.0 H Glucose 155 H POC Glucose 157 H Hemoglobin A1c Lactic Acid Calcium 8.0 L Phosphorus Magnesium Ferritin AST ALT Alkaline Phosphatase Lactate Dehydrogenase Troponin T C-Reactive Protein Total Protein Albumin LDL Cholesterol Direct Urine Creatinine Urine Total Protein Salicylates Acetaminophen Crossmatch 11/30/21 12/01/21 12/01/21 20:04 00:39 09:38 WBC 25.2 H RBC 3.06 L Hgb 8.5 L Hct 26.8 L MCH RDW 16.1 H Plt Count Lymph % (Auto) Emery % (Auto) Lymph # (Auto) Emery # (Auto) Seg Neutrophils % Seg Neuts % (Manual) 80.0 H Lymphocytes % (Manual) 9.0 L Monocytes % (Manual) Basophils % (Manual) Nucleated RBC % Seg Neutrophils # Seg Neutrophils # Man 20.2 H Lymphocytes # (Manual) Monocytes # (Manual) 1.3 H Eosinophils # (Manual) Basophils # (Manual) PT INR APTT D-Dimer Heparin Anti-Xa Level 0.18 L ABG pH ABG pO2 ABG HCO3 ABG O2 Saturation ABG Base Excess ABG Hemoglobin Oxyhemoglobin Sodium Potassium Chloride Carbon Dioxide BUN Creatinine Glucose POC Glucose 115 H Hemoglobin A1c Lactic Acid Calcium Phosphorus Magnesium Ferritin AST ALT Alkaline Phosphatase Lactate Dehydrogenase Troponin T C-Reactive Protein Total Protein Albumin LDL Cholesterol Direct Urine Creatinine Urine Total Protein Salicylates Acetaminophen Crossmatch 12/01/21 12/01/21 12/02/21 09:38 11:35 03:22 WBC 23.3 H RBC 2.61 L Hgb 7.5 L Hct 22.8 L MCH RDW 16.1 H Plt Count Lymph % (Auto) [place]y % (Auto) Lymph # (Auto) [place]y # (Auto) Seg Neutrophils % Seg Neuts % (Manual) 77.0 H Lymphocytes % (Manual) 7.0 L Monocytes % (Manual) 14.0 H Basophils % (Manual) Nucleated RBC % Seg Neutrophils # Seg Neutrophils # Man 17.9 H Lymphocytes # (Manual) Monocytes # (Manual) 3.3 H Eosinophils # (Manual) Basophils # (Manual) 0.2 H PT INR APTT D-Dimer Heparin Anti-Xa Level ABG pH ABG pO2 ABG HCO3 ABG O2 Saturation ABG Base Excess ABG Hemoglobin Oxyhemoglobin Sodium 127 L Potassium 5.1 H Chloride 87.9 L Carbon Dioxide BUN 49 H Creatinine 4.9 H Glucose 134 H POC Glucose 109 H Hemoglobin A1c Lactic Acid Calcium 7.9 L Phosphorus Magnesium Ferritin AST ALT Alkaline Phosphatase Lactate Dehydrogenase Troponin T C-Reactive Protein Total Protein Albumin LDL Cholesterol Direct Urine Creatinine Urine Total Protein Salicylates Acetaminophen Crossmatch 12/02/21 12/02/21 12/02/21 03:22 03:22 15:40 WBC RBC Hgb Hct MCH RDW Plt Count Lymph % (Auto) [place]y % (Auto) Lymph # (Auto) Emery # (Auto) Seg Neutrophils % Seg Neuts % (Manual) Lymphocytes % (Manual) Monocytes % (Manual) Basophils % (Manual) Nucleated RBC % Seg Neutrophils # Seg Neutrophils # Man Lymphocytes # (Manual) Monocytes # (Manual) Eosinophils # (Manual) Basophils # (Manual) PT INR APTT D-Dimer Heparin Anti-Xa Level 0.15 L < 0.10 L ABG pH ABG pO2 ABG HCO3 ABG O2 Saturation ABG Base Excess ABG Hemoglobin Oxyhemoglobin Sodium 129 L Potassium Chloride 91.7 L Carbon Dioxide BUN 42 H Creatinine 4.4 H Glucose POC Glucose Hemoglobin A1c Lactic Acid Calcium 8.0 L Phosphorus 5.20 H Magnesium Ferritin AST ALT Alkaline Phosphatase Lactate Dehydrogenase Troponin T C-Reactive Protein Total Protein Albumin LDL Cholesterol Direct Urine Creatinine Urine Total Protein Salicylates Acetaminophen Crossmatch 12/02/21 12/02/21 12/03/21 17:45 21:03 05:24 WBC 22.3 H RBC 2.69 L Hgb 7.4 L Hct 23.5 L MCH RDW 16.5 H Plt Count Lymph % (Auto) Emery % (Auto) Lymph # (Auto) Emery # (Auto) Seg Neutrophils % Seg Neuts % (Manual) 85.5 H Lymphocytes % (Manual) 6.0 L Monocytes % (Manual) Basophils % (Manual) Nucleated RBC % Seg Neutrophils # Seg Neutrophils # Man 19.1 H Lymphocytes # (Manual) Monocytes # (Manual) 1.0 H Eosinophils # (Manual) 0.7 H Basophils # (Manual) PT INR APTT D-Dimer Heparin Anti-Xa Level ABG pH ABG pO2 ABG HCO3 ABG O2 Saturation ABG Base Excess ABG Hemoglobin Oxyhemoglobin Sodium Potassium Chloride Carbon Dioxide BUN Creatinine Glucose POC Glucose 122 H 121 H Hemoglobin A1c Lactic Acid Calcium Phosphorus Magnesium Ferritin AST ALT Alkaline Phosphatase Lactate Dehydrogenase Troponin T C-Reactive Protein Total Protein Albumin LDL Cholesterol Direct Urine Creatinine Urine Total Protein Salicylates Acetaminophen Crossmatch 12/03/21 12/03/21 12/03/21 08:00 11:19 15:11 WBC RBC Hgb Hct MCH RDW Plt Count Lymph % (Auto) [place]y % (Auto) Lymph # (Auto) [place]y # (Auto) Seg Neutrophils % Seg Neuts % (Manual) Lymphocytes % (Manual) Monocytes % (Manual) Basophils % (Manual) Nucleated RBC % Seg Neutrophils # Seg Neutrophils # Man Lymphocytes # (Manual) Monocytes # (Manual) Eosinophils # (Manual) Basophils # (Manual) PT INR APTT D-Dimer Heparin Anti-Xa Level ABG pH ABG pO2 ABG HCO3 ABG O2 Saturation ABG Base Excess ABG Hemoglobin Oxyhemoglobin Sodium 134 L Potassium Chloride 95.9 L Carbon Dioxide BUN 30 H Creatinine 3.5 H Glucose 110 H POC Glucose 108 H 117 H Hemoglobin A1c Lactic Acid Calcium Phosphorus Magnesium Ferritin AST ALT Alkaline Phosphatase Lactate Dehydrogenase Troponin T C-Reactive Protein Total Protein Albumin LDL Cholesterol Direct Urine Creatinine Urine Total Protein Salicylates Acetaminophen Crossmatch 12/03/21 12/04/21 12/04/21 20:32 06:15 06:15 WBC 18.5 H RBC 2.88 L Hgb 8.0 L Hct 25.6 L MCH RDW 16.4 H Plt Count Lymph % (Auto) [place]y % (Auto) Lymph # (Auto) Emery # (Auto) Seg Neutrophils % Seg Neuts % (Manual) 74.0 H Lymphocytes % (Manual) 11.0 L Monocytes % (Manual) 9.0 H Basophils % (Manual) Nucleated RBC % Seg Neutrophils # Seg Neutrophils # Man 13.7 H Lymphocytes # (Manual) Monocytes # (Manual) 1.7 H Eosinophils # (Manual) Basophils # (Manual) PT INR APTT D-Dimer Heparin Anti-Xa Level ABG pH ABG pO2 ABG HCO3 ABG O2 Saturation ABG Base Excess ABG Hemoglobin Oxyhemoglobin Sodium 135 L Potassium Chloride 96.9 L Carbon Dioxide BUN 19 H Creatinine 2.8 H Glucose 102 H POC Glucose 122 H Hemoglobin A1c Lactic Acid Calcium Phosphorus Magnesium Ferritin AST ALT Alkaline Phosphatase Lactate Dehydrogenase Troponin T C-Reactive Protein Total Protein Albumin LDL Cholesterol Direct Urine Creatinine Urine Total Protein Salicylates Acetaminophen Crossmatch 12/04/21 12/04/21 12/04/21 08:14 11:17 15:58 WBC RBC Hgb Hct MCH RDW Plt Count Lymph % (Auto) [place] % (Auto) Lymph # (Auto) [place]y # (Auto) Seg Neutrophils % Seg Neuts % (Manual) Lymphocytes % (Manual) Monocytes % (Manual) Basophils % (Manual) Nucleated RBC % Seg Neutrophils # Seg Neutrophils # Man Lymphocytes # (Manual) Monocytes # (Manual) Eosinophils # (Manual) Basophils # (Manual) PT INR APTT D-Dimer Heparin Anti-Xa Level ABG pH ABG pO2 ABG HCO3 ABG O2 Saturation ABG Base Excess ABG Hemoglobin Oxyhemoglobin Sodium Potassium Chloride Carbon Dioxide BUN Creatinine Glucose POC Glucose 106 H 125 H 113 H Hemoglobin A1c Lactic Acid Calcium Phosphorus Magnesium Ferritin AST ALT Alkaline Phosphatase Lactate Dehydrogenase Troponin T C-Reactive Protein Total Protein Albumin LDL Cholesterol Direct Urine Creatinine Urine Total Protein Salicylates Acetaminophen Crossmatch 12/04/21 12/05/21 12/05/21 20:25 05:05 08:15 WBC 19.4 H RBC 2.89 L Hgb 8.1 L Hct 25.6 L MCH RDW 16.3 H Plt Count Lymph % (Auto) [place]y % (Auto) Lymph # (Auto) [place]y # (Auto) Seg Neutrophils % Seg Neuts % (Manual) Lymphocytes % (Manual) 13.0 L Monocytes % (Manual) 13.0 H Basophils % (Manual) Nucleated RBC % Seg Neutrophils # Seg Neutrophils # Man 12.4 H Lymphocytes # (Manual) Monocytes # (Manual) 2.5 H Eosinophils # (Manual) 0.8 H Basophils # (Manual) PT INR APTT D-Dimer Heparin Anti-Xa Level ABG pH ABG pO2 ABG HCO3 ABG O2 Saturation ABG Base Excess ABG Hemoglobin Oxyhemoglobin Sodium Potassium Chloride Carbon Dioxide BUN Creatinine Glucose POC Glucose 130 H 107 H Hemoglobin A1c Lactic Acid Calcium Phosphorus Magnesium Ferritin AST ALT Alkaline Phosphatase Lactate Dehydrogenase Troponin T C-Reactive Protein Total Protein Albumin LDL Cholesterol Direct Urine Creatinine Urine Total Protein Salicylates Acetaminophen Crossmatch 12/05/21 12/05/21 12/05/21 11:18 16:42 21:14 WBC RBC Hgb Hct MCH RDW Plt Count Lymph % (Auto) [place]y % (Auto) Lymph # (Auto) [place]y # (Auto) Seg Neutrophils % Seg Neuts % (Manual) Lymphocytes % (Manual) Monocytes % (Manual) Basophils % (Manual) Nucleated RBC % Seg Neutrophils # Seg Neutrophils # Man Lymphocytes # (Manual) Monocytes # (Manual) Eosinophils # (Manual) Basophils # (Manual) PT INR APTT D-Dimer Heparin Anti-Xa Level ABG pH ABG pO2 ABG HCO3 ABG O2 Saturation ABG Base Excess ABG Hemoglobin Oxyhemoglobin Sodium Potassium Chloride Carbon Dioxide BUN Creatinine Glucose POC Glucose 114 H 122 H 119 H Hemoglobin A1c Lactic Acid Calcium Phosphorus Magnesium Ferritin AST ALT Alkaline Phosphatase Lactate Dehydrogenase Troponin T C-Reactive Protein Total Protein Albumin LDL Cholesterol Direct Urine Creatinine Urine Total Protein Salicylates Acetaminophen Crossmatch 12/05/21 12/06/21 12/06/21 23:51 04:36 04:36 WBC RBC Hgb 8.0 L Hct 25.7 L MCH RDW Plt Count Lymph % (Auto) [place]y % (Auto) Lymph # (Auto) Emery # (Auto) Seg Neutrophils % Seg Neuts % (Manual) Lymphocytes % (Manual) Monocytes % (Manual) Basophils % (Manual) Nucleated RBC % Seg Neutrophils # Seg Neutrophils # Man Lymphocytes # (Manual) Monocytes # (Manual) Eosinophils # (Manual) Basophils # (Manual) PT INR APTT D-Dimer Heparin Anti-Xa Level 0.71 H ABG pH ABG pO2 ABG HCO3 ABG O2 Saturation ABG Base Excess ABG Hemoglobin Oxyhemoglobin Sodium 132 L Potassium Chloride 92.5 L Carbon Dioxide BUN 35 H Creatinine 4.0 H Glucose POC Glucose Hemoglobin A1c Lactic Acid Calcium Phosphorus Magnesium Ferritin AST ALT Alkaline Phosphatase Lactate Dehydrogenase Troponin T C-Reactive Protein Total Protein Albumin LDL Cholesterol Direct Urine Creatinine Urine Total Protein Salicylates Acetaminophen Crossmatch 12/06/21 12/06/21 12/06/21 07:32 11:12 15:49 WBC RBC Hgb Hct MCH RDW Plt Count Lymph % (Auto) [place]y % (Auto) Lymph # (Auto) Emery # (Auto) Seg Neutrophils % Seg Neuts % (Manual) Lymphocytes % (Manual) Monocytes % (Manual) Basophils % (Manual) Nucleated RBC % Seg Neutrophils # Seg Neutrophils # Man Lymphocytes # (Manual) Monocytes # (Manual) Eosinophils # (Manual) Basophils # (Manual) PT INR APTT D-Dimer Heparin Anti-Xa Level ABG pH ABG pO2 ABG HCO3 ABG O2 Saturation ABG Base Excess ABG Hemoglobin Oxyhemoglobin Sodium Potassium Chloride Carbon Dioxide BUN Creatinine Glucose POC Glucose 106 H 112 H 111 H Hemoglobin A1c Lactic Acid Calcium Phosphorus Magnesium Ferritin AST ALT Alkaline Phosphatase Lactate Dehydrogenase Troponin T C-Reactive Protein Total Protein Albumin LDL Cholesterol Direct Urine Creatinine Urine Total Protein Salicylates Acetaminophen Crossmatch 12/06/21 12/06/21 12/07/21 17:13 21:31 06:11 WBC RBC Hgb Hct MCH RDW Plt Count Lymph % (Auto) [place]y % (Auto) Lymph # (Auto) Emery # (Auto) Seg Neutrophils % Seg Neuts % (Manual) Lymphocytes % (Manual) Monocytes % (Manual) Basophils % (Manual) Nucleated RBC % Seg Neutrophils # Seg Neutrophils # Man Lymphocytes # (Manual) Monocytes # (Manual) Eosinophils # (Manual) Basophils # (Manual) PT INR APTT D-Dimer Heparin Anti-Xa Level ABG pH ABG pO2 ABG HCO3 ABG O2 Saturation ABG Base Excess ABG Hemoglobin Oxyhemoglobin Sodium 126 L Potassium Chloride 90.1 L Carbon Dioxide BUN 43 H Creatinine 4.2 H Glucose POC Glucose 113 H 112 H Hemoglobin A1c Lactic Acid Calcium Phosphorus Magnesium Ferritin AST ALT Alkaline Phosphatase Lactate Dehydrogenase Troponin T C-Reactive Protein Total Protein Albumin LDL Cholesterol Direct Urine Creatinine Urine Total Protein Salicylates Acetaminophen Crossmatch 12/07/21 12/07/21 12/08/21 12:04 21:36 04:53 WBC RBC Hgb Hct MCH RDW Plt Count Lymph % (Auto) [place]y % (Auto) Lymph # (Auto) [place]y # (Auto) Seg Neutrophils % Seg Neuts % (Manual) Lymphocytes % (Manual) Monocytes % (Manual) Basophils % (Manual) Nucleated RBC % Seg Neutrophils # Seg Neutrophils # Man Lymphocytes # (Manual) Monocytes # (Manual) Eosinophils # (Manual) Basophils # (Manual) PT INR APTT D-Dimer Heparin Anti-Xa Level ABG pH ABG pO2 ABG HCO3 ABG O2 Saturation ABG Base Excess ABG Hemoglobin Oxyhemoglobin Sodium 128 L Potassium Chloride 93.1 L Carbon Dioxide 21 L BUN 39 H Creatinine 3.9 H Glucose 103 H POC Glucose 119 H 112 H Hemoglobin A1c Lactic Acid Calcium Phosphorus Magnesium Ferritin AST ALT Alkaline Phosphatase Lactate Dehydrogenase Troponin T C-Reactive Protein Total Protein Albumin LDL Cholesterol Direct Urine Creatinine Urine Total Protein Salicylates Acetaminophen Crossmatch 12/08/21 12/08/21 12/08/21 04:53 08:56 11:20 WBC 24.2 H RBC 2.71 L Hgb 7.6 L Hct 24.1 L MCH RDW 16.7 H Plt Count 114 L Lymph % (Auto) [place]y % (Auto) Lymph # (Auto) Emery # (Auto) Seg Neutrophils % Seg Neuts % (Manual) 76.0 H Lymphocytes % (Manual) Monocytes % (Manual) Basophils % (Manual) Nucleated RBC % 1.0 H Seg Neutrophils # Seg Neutrophils # Man 18.4 H Lymphocytes # (Manual) Monocytes # (Manual) 1.5 H Eosinophils # (Manual) 1.0 H Basophils # (Manual) PT INR APTT D-Dimer Heparin Anti-Xa Level 0.94 H ABG pH ABG pO2 ABG HCO3 ABG O2 Saturation ABG Base Excess ABG Hemoglobin Oxyhemoglobin Sodium Potassium Chloride Carbon Dioxide BUN Creatinine Glucose POC Glucose 119 H Hemoglobin A1c Lactic Acid Calcium Phosphorus Magnesium Ferritin AST ALT Alkaline Phosphatase Lactate Dehydrogenase Troponin T C-Reactive Protein Total Protein Albumin LDL Cholesterol Direct Urine Creatinine Urine Total Protein Salicylates Acetaminophen Crossmatch 12/08/21 12/08/21 12/09/21 16:55 21:18 07:05 WBC RBC Hgb Hct MCH RDW Plt Count Lymph % (Auto) [place]y % (Auto) Lymph # (Auto) [place]y # (Auto) Seg Neutrophils % Seg Neuts % (Manual) Lymphocytes % (Manual) Monocytes % (Manual) Basophils % (Manual) Nucleated RBC % Seg Neutrophils # Seg Neutrophils # Man Lymphocytes # (Manual) Monocytes # (Manual) Eosinophils # (Manual) Basophils # (Manual) PT INR APTT D-Dimer Heparin Anti-Xa Level ABG pH ABG pO2 ABG HCO3 ABG O2 Saturation ABG Base Excess ABG Hemoglobin Oxyhemoglobin Sodium 124 L Potassium Chloride 89.9 L Carbon Dioxide BUN 45 H Creatinine 3.5 H Glucose POC Glucose 112 H 122 H Hemoglobin A1c Lactic Acid Calcium Phosphorus Magnesium Ferritin AST ALT Alkaline Phosphatase Lactate Dehydrogenase Troponin T C-Reactive Protein Total Protein Albumin LDL Cholesterol Direct Urine Creatinine Urine Total Protein Salicylates Acetaminophen Crossmatch 12/09/21 12/09/21 12/10/21 11:02 20:11 05:22 WBC RBC Hgb Hct MCH RDW Plt Count Lymph % (Auto) [place] % (Auto) Lymph # (Auto) [place]y # (Auto) Seg Neutrophils % Seg Neuts % (Manual) Lymphocytes % (Manual) Monocytes % (Manual) Basophils % (Manual) Nucleated RBC % Seg Neutrophils # Seg Neutrophils # Man Lymphocytes # (Manual) Monocytes # (Manual) Eosinophils # (Manual) Basophils # (Manual) PT INR APTT D-Dimer Heparin Anti-Xa Level ABG pH ABG pO2 ABG HCO3 ABG O2 Saturation ABG Base Excess ABG Hemoglobin Oxyhemoglobin Sodium 131 L D Potassium Chloride 97.0 L Carbon Dioxide BUN 34 H Creatinine 2.9 H Glucose POC Glucose 132 H 108 H Hemoglobin A1c Lactic Acid Calcium Phosphorus Magnesium Ferritin AST ALT Alkaline Phosphatase Lactate Dehydrogenase Troponin T C-Reactive Protein Total Protein Albumin LDL Cholesterol Direct Urine Creatinine Urine Total Protein Salicylates Acetaminophen Crossmatch 12/10/21 12/10/21 12/10/21 05:22 07:48 11:30 WBC 14.5 H RBC 2.65 L Hgb 7.7 L Hct 23.6 L MCH RDW 17.0 H Plt Count 119 L Lymph % (Auto) [place]y % (Auto) Lymph # (Auto) [place]y # (Auto) Seg Neutrophils % Seg Neuts % (Manual) 73.0 H Lymphocytes % (Manual) 7.0 L Monocytes % (Manual) Basophils % (Manual) 2.0 H Nucleated RBC % 1.0 H Seg Neutrophils # Seg Neutrophils # Man 10.6 H Lymphocytes # (Manual) 1.0 L Monocytes # (Manual) Eosinophils # (Manual) Basophils # (Manual) 0.3 H PT INR APTT D-Dimer Heparin Anti-Xa Level ABG pH ABG pO2 ABG HCO3 ABG O2 Saturation ABG Base Excess ABG Hemoglobin Oxyhemoglobin Sodium Potassium Chloride Carbon Dioxide BUN Creatinine Glucose POC Glucose 106 H 129 H Hemoglobin A1c Lactic Acid Calcium Phosphorus Magnesium Ferritin AST ALT Alkaline Phosphatase Lactate Dehydrogenase Troponin T C-Reactive Protein Total Protein Albumin LDL Cholesterol Direct Urine Creatinine Urine Total Protein Salicylates Acetaminophen Crossmatch 12/10/21 12/10/21 12/10/21 16:17 20:56 21:40 WBC RBC Hgb Hct MCH RDW Plt Count Lymph % (Auto) [place]y % (Auto) Lymph # (Auto) [place]y # (Auto) Seg Neutrophils % Seg Neuts % (Manual) Lymphocytes % (Manual) Monocytes % (Manual) Basophils % (Manual) Nucleated RBC % Seg Neutrophils # Seg Neutrophils # Man Lymphocytes # (Manual) Monocytes # (Manual) Eosinophils # (Manual) Basophils # (Manual) PT INR APTT D-Dimer Heparin Anti-Xa Level 0.87 H ABG pH ABG pO2 ABG HCO3 ABG O2 Saturation ABG Base Excess ABG Hemoglobin Oxyhemoglobin Sodium Potassium Chloride Carbon Dioxide BUN Creatinine Glucose POC Glucose 108 H 113 H Hemoglobin A1c Lactic Acid Calcium Phosphorus Magnesium Ferritin AST ALT Alkaline Phosphatase Lactate Dehydrogenase Troponin T C-Reactive Protein Total Protein Albumin LDL Cholesterol Direct Urine Creatinine Urine Total Protein Salicylates Acetaminophen Crossmatch 12/11/21 12/11/21 12/11/21 05:21 05:21 08:10 WBC RBC Hgb Hct MCH RDW Plt Count Lymph % (Auto) [place] % (Auto) Lymph # (Auto) [place]y # (Auto) Seg Neutrophils % Seg Neuts % (Manual) Lymphocytes % (Manual) Monocytes % (Manual) Basophils % (Manual) Nucleated RBC % Seg Neutrophils # Seg Neutrophils # Man Lymphocytes # (Manual) Monocytes # (Manual) Eosinophils # (Manual) Basophils # (Manual) PT INR APTT D-Dimer Heparin Anti-Xa Level 0.85 H ABG pH ABG pO2 ABG HCO3 ABG O2 Saturation ABG Base Excess ABG Hemoglobin Oxyhemoglobin Sodium 129 L Potassium Chloride 94.3 L Carbon Dioxide BUN 41 H Creatinine 3.0 H Glucose 111 H POC Glucose 109 H Hemoglobin A1c Lactic Acid Calcium Phosphorus Magnesium Ferritin AST ALT Alkaline Phosphatase Lactate Dehydrogenase Troponin T C-Reactive Protein Total Protein Albumin LDL Cholesterol Direct Urine Creatinine Urine Total Protein Salicylates Acetaminophen Crossmatch 12/11/21 12/11/21 12/11/21 12:00 13:08 13:08 WBC 13.6 H RBC 2.78 L Hgb 8.1 L Hct 25.2 L MCH RDW 17.7 H Plt Count Lymph % (Auto) [place]y % (Auto) Lymph # (Auto) [place]y # (Auto) Seg Neutrophils % Seg Neuts % (Manual) Lymphocytes % (Manual) Monocytes % (Manual) Basophils % (Manual) Nucleated RBC % Seg Neutrophils # Seg Neutrophils # Man Lymphocytes # (Manual) Monocytes # (Manual) Eosinophils # (Manual) Basophils # (Manual) PT INR APTT 116.8 H* D-Dimer Heparin Anti-Xa Level ABG pH ABG pO2 ABG HCO3 ABG O2 Saturation ABG Base Excess ABG Hemoglobin Oxyhemoglobin Sodium Potassium Chloride Carbon Dioxide BUN Creatinine Glucose POC Glucose 170 H Hemoglobin A1c Lactic Acid Calcium Phosphorus Magnesium Ferritin AST ALT Alkaline Phosphatase Lactate Dehydrogenase Troponin T C-Reactive Protein Total Protein Albumin LDL Cholesterol Direct Urine Creatinine Urine Total Protein Salicylates Acetaminophen Crossmatch 12/11/21 13:08 WBC RBC Hgb Hct MCH RDW Plt Count Lymph % (Auto) [place]y % (Auto) Lymph # (Auto) [place]y # (Auto) Seg Neutrophils % Seg Neuts % (Manual) Lymphocytes % (Manual) Monocytes % (Manual) Basophils % (Manual) Nucleated RBC % Seg Neutrophils # Seg Neutrophils # Man Lymphocytes # (Manual) Monocytes # (Manual) Eosinophils # (Manual) Basophils # (Manual) PT INR APTT D-Dimer Heparin Anti-Xa Level ABG pH ABG pO2 ABG HCO3 ABG O2 Saturation ABG Base Excess ABG Hemoglobin Oxyhemoglobin Sodium Potassium Chloride Carbon Dioxide BUN Creatinine 3.0 H Glucose POC Glucose Hemoglobin A1c Lactic Acid Calcium Phosphorus Magnesium Ferritin AST ALT Alkaline Phosphatase Lactate Dehydrogenase Troponin T C-Reactive Protein Total Protein Albumin LDL Cholesterol Direct Urine Creatinine Urine Total Protein Salicylates Acetaminophen Crossmatch Allied health notes reviewed: nursing
[2021-12-12] MEDS: APIXABAN 5 MG TAB PO SCH ×3 (00:10→21:45)
[2021-12-12] MEDS: oxyCODONE /ACETAMINOPHEN 5-325MG TAB PO PRN ×2 (00:12→21:47)
[2021-12-12] MEDS: GABAPENTIN 100 MG CAP PO SCH ×3 (05:40→21:45)
--- NOTE | 2021-12-12 06:20 | XRay Report ---
CHEST 1 VIEW 12/12/2021 5:06 AM INDICATION / CLINICAL INFORMATION: Follow up on pulmonary infiltrates.. COMPARISON: 11/30/21. FINDINGS: SUPPORT DEVICES: New right jugular CVL tip overlies the mid SVC. HEART / MEDIASTINUM: Mild cardiomegaly is stable. There is mild pulmonary vascular congestion. LUNGS / PLEURA: Pleuroparenchymal opacity in the left lower hemithorax is probably unchanged. No new abnormality. No pneumothorax. ADDITIONAL FINDINGS: No significant additional findings. IMPRESSION: No significant interval change. Signer Name: Jered Molina MD Signed: 12/12/2021 6:15 AM Workstation Name: [id number]
--- NOTE | 2021-12-12 08:30 | Progress Note ---
Assessment and Plan Acute Renal Failure secondary to Ischemic ATN secondary to Sepsis, Cardiac arrest and Hypotension S/P Cardiac Arrest Acute Hypoxemic Respiratory Failure Acute DVT Sepsis CHF Anemia Hyperkalemia Hyponatremia Plan: no significnat change in Cr and BUN off HD< howeve,r low UOP will order HD for UF only will check bladder scan fluid restriction 1000 cc a day CHF-LVEF 25-30 % Anemia-On Epogen 10,000 units TIW Obtain daily weights Strict I/O's daily Renally dose medications Avoid nephrotoxic agents Continue to monitor renal function closely Assess dialysis needs daily Subjective Date of service: 12/12/21 Principal diagnosis: AHRF; Cardiac arrest; R. pneumothorax; pneumonia; AMS; DVT's; SIERRA; Obesity Interval history: no change in condition Objective - Vital Signs Vital signs: Vital Signs - 12hr 12/11/21 12/11/21 12/11/21 20:59 21:24 21:45 Temperature Pulse Rate 96 H 74 Respiratory 16 Rate Respiratory 18 Rate [Bilateral Lower] Blood Pressure 131/82 O2 Sat by Pulse 100 Oximetry 12/11/21 12/11/21 12/11/21 21:49 23:00 23:56 Temperature 98.2 F Pulse Rate 75 117 H Respiratory 20 Rate Respiratory Rate [Bilateral Lower] Blood Pressure 118/82 O2 Sat by Pulse 100 100 Oximetry 12/12/21 12/12/21 12/12/21 00:12 04:00 04:45 Temperature 98.5 F Pulse Rate 118 H 118 H Respiratory 17 20 Rate Respiratory Rate [Bilateral Lower] Blood Pressure 133/78 O2 Sat by Pulse 100 Oximetry - Lab 12/11/21 13:08 12/12/21 05:15 Most recent lab results ABG pH 7.450 pH Units (7.350-7.450) 12/01/21 Unknown ABG pCO2 38.0 mm Hg 12/01/21 Unknown ABG pO2 88.9 mm Hg (80.0-90.0) 12/01/21 Unknown ABG HCO3 25.8 mmol/L (20.0-26.0) 12/01/21 Unknown ABG O2 Saturation 97.2 % (95.0-99.0) 12/01/21 Unknown Calcium 9.0 mg/dL (8.4-10.2) 12/12/21 05:15 Phosphorus 5.20 mg/dL (2.5-4.5) H 12/02/21 03:22 Magnesium 1.60 mg/dL (1.7-2.3) L 11/19/21 14:38 Urine Creatinine 190.9 mg/dL (0.1-20.0) H 11/04/21 Unknown Urine Sodium 10 mmol/L 11/04/21 Unknown Urine Total Protein 172 mg/dL (5-11.8) H 11/04/21 Unknown Medications & Allergies - Medications Allergies/Adverse Reactions: Allergies No Known Allergies Allergy (Verified 10/29/21 14:01) Home Medications: Home Medications Medication Instructions Recorded Confirmed Last Taken Type Unobtainable 11/10/21 11/10/21 Unknown History Active Medications: Generic Name Dose Route Start Last Admin Trade Name Freq PRN Reason Stop Dose Admin Acetaminophen 650 mg 10/29/21 17:04 11/12/21 22:53 Acetaminophen 650 Mg Rect Supp AR 650 mg Q6H PRN Administration Pain MILD(1-3)/Fever >100.5/NIEVES Acetaminophen 650 mg 11/19/21 16:35 12/11/21 16:42 Acetaminophen 325 Mg Tab PO 650 mg Q6HR PRN Administration PAIN Albumin Human 50 gm 12/02/21 11:00 12/02/21 11:55 Albumin Human 25% (25 Gm/100 Ml) Inj IV 50 gm ZACH PRN Administration Hypotension Alprazolam 0.25 mg 11/14/21 14:29 12/11/21 09:16 Alprazolam 0.25 Mg Tab PO 0.25 mg Q8H PRN Administration Anxiety Amiodarone HCl 200 mg 12/10/21 10:00 12/11/21 09:15 Amiodarone 200 Mg Tab PO 200 mg DAILY RAMON Administration Apixaban 5 mg 12/12/21 10:00 Apixaban 5 Mg Tab PO Q12HR RAMON Protocol Docusate Sodium 100 mg 11/18/21 15:00 12/11/21 21:24 Docusate Sodium 100 Mg Cap PO 100 mg BID RAMON Administration Epoetin Landon-epbx 10,000 unit 12/06/21 10:00 12/07/21 15:30 Epoetin [place]-Epbx 10,000 Unit/1 Ml Vial IV 10,000 unit ZACH PRN Administration hemodialysis Famotidine 10 mg 11/06/21 10:00 12/11/21 21:24 Famotidine 10 Mg Tab PO 10 mg BID RAMON Administration Gabapentin 100 mg 11/28/21 14:00 12/12/21 05:40 Gabapentin 100 Mg Cap PO 100 mg Q8HR RAMON Administration Hydrophilic Ointment 1 applic 10/29/21 14:29 11/09/21 08:51 Lip Therapy Vaseline TP 1 applic Q2HR PRN Administration Dry Lips Sodium Chloride 100 mls @ 999 mls/hr 12/01/21 14:44 Nacl 0.9% IV ZACH PRN Hypotension Insulin Human Lispro 0 unit 11/25/21 22:00 12/11/21 22:18 Insulin Lispro 100 Unit/Ml SUB-Q Not Given ACHS [facility] Protocol Lactulose 20 gm 11/18/21 14:43 12/06/21 15:26 Lactulose 20 Gm/30 Ml Oral Liqd PO 20 gm Q6H PRN Administration Constipation Melatonin 10 mg 11/22/21 17:31 12/10/21 22:19 Melatonin 5 Mg Tab PO 10 mg QHS PRN Administration Sleep Metoprolol Tartrate 100 mg 12/07/21 11:00 12/11/21 21:24 Metoprolol Tartrate 50 Mg Tab PO 100 mg BID [facility] Administration Midodrine 10 mg 12/01/21 12:00 12/11/21 17:23 Midodrine 5 Mg Tab PO Not Given TID@0800,1200,1600 [facility] Morphine Sulfate 1 mg 11/28/21 15:00 12/10/21 16:34 Morphine 2 Mg/1 Ml Inj IV 1 mg Q4H PRN Administration Pain, Moderate (4-6) Multi-Ingred Cream/Lotion/Oil/Oint 1 applic 10/29/21 14:29 11/06/21 09:25 Mineral Oil/Petrolatum, White Ophth Oint 3.5 Gm OU 1 applic Q4HR PRN Administration Dry Eye(s) Oxycodone/Acetaminophen 1 tab 11/27/21 14:31 12/12/21 00:12 Oxycodone /Acetaminophen 5-325mg Tab PO 1 tab Q4H PRN Administration Pain, Moderate (4-6) Polyethylene Glycol 17 gm 11/20/21 12:47 12/08/21 09:54 Polyethylene Glycol 3350 17 Gm Powder PO 17 gm QDAY PRN Administration Constipation Senna/Docusate Sodium 1 tab 11/16/21 22:00 12/11/21 21:28 Sennosides/Docusate Sodium 8.6/50 Mg Tab PO 1 tab BID RAMON Administration Sodium Chloride 10 ml 10/29/21 22:00 12/11/21 21:29 Sodium Chloride 0.9% 10 Ml Flush Syringe IV 10 ml BID RAMON Administration Sodium Chloride 10 ml 10/29/21 17:04 Sodium Chloride 0.9% 10 Ml Flush Syringe IV PRN PRN LINE FLUSH
[2021-12-12] MEDS ORDERED: REGADENOSON 0.4 MG/5 ML INJ IV ONE (08:47)
--- NOTE | 2021-12-12 09:21 | Progress Note ---
Assessment and Plan Assessment and plan: 66 YO Female with Obesity was attending [facility] when the patient collapsed and lost consciousness. Witnesses began CPR. EMS was notified and upon arrival the patient was found to be in distress without perfusing cardiac rhythm. Patient initiated on ACLS protocol and subsequently intubated in the field and transported to ED. The patient regained spontaneous circulation during transport. She was found to have acute hypoxemic respiratory failure, septic shock suspected secondary to aspiration pneumonia, metabolic acidosis, toxic metabolic encephalopathy, shock liver, and cardiac arrest with return of perfusing cardiac rhythm after initiation of ACLS protocol. Patient initiated on sepsis protocol as well as pneumonia protocol. Patient admitted to ICU. Patient improved, extubated on 11/11 and transferred to floor on 11/19. s/p cardiac arrest, collapse at [facility], HFrEF, shock/hypotension resolved Atrial fibrillation/atrial flutter -Cardiac arrest and collapse at [facility] with ROSC -Cardiology consulted, appreciate recommendations - S/p Cardizem gtt- d/c due to low EF; now on PO Amio -s/p vasopressor support with levophed -Echocardiogram shows left ventricular systolic function severely decreased, LVEF 25 to 30%, no pericardial effusion -proBNP 5622 -Continue Lasix 20 mg twice daily, BB, spironolactone, losartan -No significant volume overload clinically Acute hypoxic respiratory failure, right pneumothorax, Angioedema (resolved), pulmonary edema -[facility] consulted, appreciate recommendations -Intubated on 10/29 and extubated on 11/11 -Bipap q HS and prn, at high risk for KOLBY with morbid obesity -NC during day -s/p right chest tube for pneumothorax -s/p steroids for angioedema -On Lasix for pulmonary edema. Transaminitis likely shocked liver - resolved Acute kidney injury likely secondary to vasomotor nephropathy, hypernatremia -Nephrology consulted, appreciate recommendations -Krishna replaced 11/05 urinary retention -FeNa 0.05 indicating pre-renal -SIERRA and hyponatremia resolved. Creatinine 1.0 on Lasix IV Shock cardiogenicsuspected sepsis -Fever was as high as 102 with a leukocytosis Blood, urine and sputum cultures negative -COVID-19 PCR negative -S/p empiric antibiotic therapy for possible pneumonia with Rocephin and azithromycin () -S/p Levophed gtt for hypotension -Fever and leukocytosis resolved -Monitor WBC and temperature curve Acute Metabolic encephalopathy, agitation/anxiety -Etiology likely from a cardiac arrest, shock and cerebral hypoperfusion CT head no acute focal parenchymal lesion in the brain -Neurology consulted, appreciate recommendations -EEG and MRI noted, Neuro recommend to cut down on sedation as possible Mental status significantly improved, currently fairly alert and oriented. Answers appropriately. Acute DVT in the left posterior tibial vein and bilateral peroneal veins, Anemia, retroperitoneal bleed -D-dimer greater than 10,000 -CTA chest with no evidence of PE -Bilateral lower extremity ultrasound positive for DVT -Heparin gtt on hold d/t anemia, received PRBC x4 -vasuclar surgery consulted, appreciate recommendations -recommended multiphasic CT angio of the abdomen and pelvis with and without contrast if H/H drops and did not recommend IVC filter at this time as the DVTs are infrapopliteal and recommends a follow-up DVT study weekly for 2 weeks. Repeat venous duplex ultrasound on 11/21 showed progression of left peroneal DVT extending into popliteal vein. Vascular surgery completed IVC filter placement on 11/22. -Trend CBC -SCDs to BLE while in bed -Transfuse hemoglobin less than 7 -Monitor for signs of bleeding -Hemoglobin stable, 8.6 Hypertension, not able be controlled Increase losartan 200 mg daily and add hydralazine as needed. Hyperglycemia ,resolved) -Avoid hypoglycemia -Hbg A1C 6.7 -SSI and lantus q hs (titrate as needed) -Accu-Cheks q. 6 Morbid obesity High risk for KOLBY On nightly BiPAP Deconditioning PT/OT Hospital Course to Date: 10/30: Intubated and sedated, on fentanyl gtt. Open eyes spontaneously but does not follow any commands. On vasopressors, titrate as tolerated for MAP above 65. Patient febrile overnight, continue empiric IV Abx, culture data and COVID PCR pending. Patient is also s/p CT placement due to spontaneous pneumothorax. 2D echo is pending and Cardiology is consulted. 10/31: Patient remains intubated and following commands. Levophed drip stopped and potassium repleted. Patient started on tube feeding. Remains in soft bilateral restraints. 11/01: RN noted ST changes on BSM and 12 lead EKG obtained which showed ST. Given Ativan 1mg for agitation as she is maxed on fentanyl drip and IV push fentanyl did not seem to help. Patient was started on CPAP this morning by RT but remained on fentanyl drip and was having periods of apnea. Plan was to retry CPAP again in the p.m. with sedation off. 11/02: Rate increased r/t hypercapnea on ABG, sedation reduced. Given kionex for hyperkalemia and was started on levophed overnight for hypotension. 11/03: Overnight patient had tachycardia and was given Cardizem and Lopressor. Lopressor was repeated in the a.m. due to tachycardia. Patient will be started on amiodarone with a bolus per cardiology. Patient started on normal saline per liter per [facility] and steroids for angioedema. Noted to have bright red blood when suctioned from oh ETT. Remains on heparin drip as H/H is stable for now. Will reevaluate. Fentanyl drip was restarted last night due to agitation. Dr. Flores updated family today 11/04: Patient was sedated on fentanyl however off sedation is able to follow commands, a.m. labs completed in the p.m. and show hyperkalemia with increased renal function studies. Nephrology, neurology consulted by [facility]. Given Kayexalate, insulin and D50 for hyperkalemia. Patient remains on amiodarone. 11/05: Patient needed to be sedated on fentanyl again to today. overnight krishna was replaced. Hyperkalemia->given kionex 60 for 5.6. Repeat K 6-> Dr. Grant informed and requested bumex, kionex, insulin, d50, calcium gluconate and sodium bicarb with repeat BMP in 2 hours which were placed. HR remains elevated. 11/06: Patient remained in atrial fibrillation/atrial flutter with heart rate in the 150s despite being on amnio drip and was given amnio bolus, Cardizem bolus and started on Cardizem drip by cardiology. Patient is on beta-blockers p.o. scheduled and to feedings changed to Nepro. Kayexalate was given in the morning by nephrology due to hyperkalemia. 11/07: Patient is only responsive to mild stimuli, precedex added in an attempt to wean off fentanyl gtt to better assess her mental status. Neurology also on consult, pending MRI and EEG. Patient remains in Aflutter this am, HR in the 80 to 90s, still on amiodarone and heparin gtt. 11/08: Fentanyl gtt is off, only on precedex gtt. Patient is still not following any commands. MRI brain and EEG completed. Neuro recommendations noted, sedatives agents decreased. FWF added for hypernatremia and low K repleted, repe at labs ordered. Placed a call and spoke with patient's daughter, Eva Brown . She was updated on patient's conditions and status. All questions and concerns were voiced at this time. 11/09: Patient is awake and alert this am, following commands and appropriate. Remains on precedex gtt, plan for possible PST today. Hypertensive overnight, meds adjusted by Cardio and PRN Hydralazine added for SBP greater than 160. CT dislodged overnight, CXR is stable with no significant change. F/U CXR in the am. Patient's daughter, Eva Brown, visited with patient. She was updated on patient's status and goal of care for today. All questions and concerns were voiced at this time. 11/10: Mentation remains intact, still on precedex gtt. This am CXR noted still with fluid overload s/p X1 dose of IV lasix, good response from IV lasix overnight. Hypernatremia improved, D5W d/dayday. Still with persistent hypokalemia, continue electrolytes replacement and frequent lab check. Daily IV lasix and aldactone added by Cardio. Patient is also with persistent low grade fevers overnight, leukocytosis with mild improvement this am. Will get a repeat sputum culture, hold off on IV abx for now. Consider ID consult if fevers and leukocytosis persist. Patient tolerated PST X4hrs yesterday. PST again today, plan to wean to extubate if tolerated. 11/11: IAM overnight. Off precedex gtt and tolerated PST this am. Plan to wean to extubate today. Additional IV lasix given, plan to keep patient at a net negative balance for better lung compliance. F/U CXR in the am. K improved this am, repeat BMP this afternoon since diuresing. Remains with low grade fevers, leukocytosis downtrending, will continue to monitor. Speech/PT/OT ordered 11/12: S/p extubation, now stable on 3L NC. This am CXR noted with no significant changes, lasix changed to IV X4days BID. Drop in H&H this am, and Lt. flank ecchymosis noted. Heparin gtt on hold for now and orders placed for 1 unit of PRBCs and Ct Abd/Pelvis w/o con to r/o retroperitoneal bleed. Pending speech swallow eval, keep patient NPO for now. Patient is stable for IMCU status 11/13: Patient with increased WOB and tachycardia this am, patient was placed on Bipap and precedex gtt was resumed. CXR with mild improvement. CT Abd/Pelvis also reviewed large hematomas noted at the Lt. retroperitoneum and left posterior lateral abdominal wall. Heparin gtt is already on hold, patient is hemodynamically stable. Vascular Surgery consulted for possible IVC filter eval. Patient s/p 2units of PRBCs, will continue to trend H&H and transfuse if hbg is less than 7. Worsening renal function this am, IF diuretic on hold for now. Patient is also febrile with spike in wbcs most likely reactive to bleed, will panculture and hold off on IV Abx for now. Patient also failed speech bedside swallow eval yesterday, NGT in placed plan to resume enteral nutrition 11/14: Patient had bilateral lower extremity Doppler ultrasound and vascular surgery has recommended multiphasic CT angio of the abdomen and pelvis with and without contrast if H/H drops and does not recommend IVC filter at this time as the DVTs are infrapopliteal and recommends a DVT study weekly for 2 weeks. FWF 250 q4 ml per nephro. Started on as needed Xanax and p.o. amiodarone. She did not pass her ST evaluation today. Will be transferred to [facility]. 11/15: Resting comfortably on encounter. Speech cleared for pureed diet. Remains on 3l satting 98 % on bedside encounter. Does not appear to be in respiratory distress. Will continue to hold AC, No ivc filter planned at this time. qweekly doppler to monitor for migration of DVT per vascular. If demonstrated, will consider IVC filter. CBC ordered for tomorrow, will continue monitoring in light of retroperitoneal hematoma. FWF increased by nephrology to 350cc q4hr d/t hypernatremia. UOP/renal function both improved. D/w cardiology, will continue amiodorone an additional 24hrs. Plan to change dosing of metoprolol. Continue to wean off of precedex. Continue xanax scheduled for anxiety. physical therapy recs noted, fernanda / ltac will discuss with CM. Continue IMCU monitoring. 11/16: Pulmonary congestion this AM. CXR ordered. Lasix 40 mg IV x 1 order this AM. Will monitor for 24 hrs. potential downgrade to medical floor tomorrow. 11/17: Persisting pulmonary congestion, was on bipap overnight into this AM. Will order additional lasix 40 mg IV x 2. CXR ordered for AM. Possible downgrade to floor tomorrow. Anticipate d/c sunday. 11/18: Patient seen and examined, continue weaning, will continue diuresis BID, discussed with daughter. 11/19: Patient seen and examined this morning doing well no acute distress noted. Lasix was increased to twice daily to 20 mg IV. Clinically improving. Patient will be transferred to telemetry today can be switched to Lasix p.o. twice daily in a.m. She has her weekly Doppler of lower extremity tomorrow vascular is following for this. She was taken off anticoagulation secondary to retroperitoneal bleed., The anticoagulation was started initially for atrial fibrillation and an infrapopliteal DVT. During her hospital stay she had a prolonged ventilator management and was successfully weaned off. She also received a total of 4 units of packed red blood cell. Hemoglobin has remained stable. Anticipate discharge in next 48 hours if continues to clinically stay stable. : Transferred from ICU on 11/19. Progressive improving. Currently awake and oriented. O2 weaned to 4 L. Hemodynamically stable. BP control being optimized. MiraLAX for constipation. Hemoglobin stable on the heparin infusion, being monitored closely with history of retroperitoneal bleed. 11/21: Patient remains mostly bedridden. She is awake and oriented on 2 L of O2. Repeat ultrasound showed extension of left peroneal DVT into popliteal vein. Heparin was discontinued for significant retroperitoneal bleed and off anticoagulation since. Vascular surgery plan for placement of IVC filter tomorrow. Patient is chest pains, palpitations, hemoptysis. She has some cough. Left lower extremity pain likely from DVT better today. Discussed with the patient, nursing staff and vascular surgery. 11/22: The infrapopliteal vein thrombosis has propagated to the left popliteal vein. Vascular surgery to perform IVC filter placement today. 11/23: Vascular surgery placed IVC filter yesterday. Continue metoprolol 100 mg p.o. twice daily, Aldactone 25 mg p.o. daily and losartan 25 mg p.o. daily. Patient still requiring BiPAP (IPAP18, EPAP8) with FiO2 of 30%. Continue to wean oxygen per pulmonary recommendations. Nurse reports patient is having vaginal bleeding. We will check serial CBC and pelvic ultrasound 11/24: I discussed with cardiology yesterday the need for a LifeVest. LifeVest is ordered and pending. Patient is s/p IVC filter placement. Continue metoprolol 100 mg p.o. twice daily, Aldactone 25 mg p.o. daily and losartan 25 mg p.o. da amy. Patient still requiring BiPAP (IPAP18, EPAP8) with FiO2 of 30%. Continue to wean oxygen per pulmonary recommendations. No further reports of vaginal bleeding. Pelvic ultrasound negative 11/25: Awaiting for LifeVest. Patient is s/p IVC filter placement. Continue metoprolol 100 mg p.o. twice daily, Aldactone 25 mg p.o. daily and losartan 25 mg p.o. daily. Patient still requiring BiPAP (IPAP18, EPAP8) with FiO2 of 30%. Continue to wean oxygen per pulmonary recommendations. 11/26: Physical therapy recommends subacute rehab. Still awaiting LifeVest. Patient is s/p IVC filter placement. Continue metoprolol 100 mg p.o. twice daily, Aldactone 25 mg p.o. daily and losartan 25 mg p.o. daily. Patient still requiring BiPAP (IPAP18, EPAP8) with FiO2 of 30% at night. Continue to wean oxygen per pulmonary recommendations. Patient currently with 2 L O2. 11/27: Physical therapy recommends subacute rehab. Patient has a LifeVest. Patient's left lower extremity pain likely related to DVT. Continue pain control. Continue metoprolol 100 mg p.o. twice daily, Aldactone 25 mg p.o. daily and losartan 25 mg p.o. daily. Patient still requiring BiPAP (IPAP18, EPAP8) with FiO2 of 30% at night. 11/28: Physical therapy recommends subacute rehab. Patient has a LifeVest. Patient continues to complain of left lower extremity pain which makes it very difficult for ambulation. Continue Percocet for pain control. Add neurontin for possible neuropathy. Etiology is likely secondary to DVT. Continue metoprolol 100 mg p.o. twice daily, Aldactone 25 mg p.o. daily and losartan 25 mg p.o. daily. Patient still requiring BiPAP (IPAP18, EPAP8) with FiO2 of 30% at night. Repeated Doppler US of LLE and will ask vascular surgery to revisit. 11/29; worsening lower extremity DVTs, vascular following, on heparin drip 11/30; low-grade fever, leukocytosis, shortness of breath, chest x-ray possible left-sided pneumonia/possible healthcare associated pneumonia Blood cultures already sent, empiric antibiotic cefepime[renal dose confirmed with pharmacist] ID consult if needed 12/01; gram-positive bacteremia preliminary, add vancomycin 1 dose, repeat cultures, consult ID Worsening renal function, nephrology initiated hemodialysis today, patient is critically ill, very poor prognosis, with multiple comorbidities And critical issues. Director [place] recommendations noted and appreciated 12/02; Gram positive bacteremia/possible HCAP and sepsis, on cefepime and 1 dose Vanco. Nephrology initiated hemodialysis, ID consult. Patient is hypotensive, pulmonary critical recommended transfer to ICU and start vasopressors for close observation overnight. Dr. Padron discussed with patient's daughter over patient's telephone and discussed in detail patient's condition, new developments sepsis, renal failure on hemodialysis anticoagulation for DVT and severe cardiomyopathy, also discussed poor prognosis, and the plans of transferring the patient to ICU for close observation. Many questions, and answered all of them. dr. Padron also discussed with granddaughter at the bedside and patient was moved to ICU, She had numerous questions answered all of them and discussed the current co ndition prognosis and treatment plan. She verbalized understanding 12/03: Patient was transferred to ICU yesterday evening for hypotension however she did not need to be started on any vasopressin therapy. Patient is on p.o. midodrine and all her antihypertensives have been held. She also received albumin bolus. Patient will be transferred to the floor today. Still complains of bilateral lower extremity pain. Patient is on cefepime and she is scheduled for dialysis today. 12/04: Some complaint of leg pain. Percocet given for pain control. Patient is very deconditioned, will need aggressive PT. Will work on d/c planning with cm. 12/05: Patient does not appear to be in distress this AM. tachycardic hr on encounter and overnight, was given diltiazem by source water protection specialist. Cardiology initiated metoprolol and amiodorone on patient this morning. She denies any pain except for discomfort in left lower extremity. Controlled with percocet. She also states that she does not have any urine output and has been constipated. Will order bowel regimen. Discharge needs discussed with CM which include Lifevest, BIPAP for nightly use, and possible set up for dialysis. She was visiting on a visa to the from [place] however is technically a citizen of [place] which makes placement a continued challenge. 12/06: Case management reports patient will need LifeVest, walker, CPAP and arrangements for outpatient hemodialysis. However, patient is uninsured. I discussed with the daughter Eva plans for home hospice. Eva reports that she is willing to have hospice to obtain additional resources but is not wanting palliative care/comfort measures. 12/07: Awaiting LifeVest and outpatient HD arrangements. I d/w CM discharge planning. Pt still with heparin drip but amiodarone changed to p.o. 200mg BID. Cont. Metoprolol 50mg BID. Hold LAYO and ARB for renal fxn. Patient for outpatient ischemic evaluation per Cardiology. Leukocytosis likely related to retroperitoneal hematoma. ID wants to monitor off abx. 12/08: Awaiting LifeVest and outpatient HD arrangements. I d/w CM discharge planning. Pt still with heparin drip. Await cardiology recommendations to transition to p.o. anticoagulation. Patient for outpatient ischemic evaluation per Cardiology. Leukocytosis likely related to retroperitoneal hematoma. Continue to monitor off antibiotics. Continue volume management per nephrology with hemodialysis 12/09: Patient with PermCath placement today. Nephrology reports patient hypotensive during hemodialysis and started 10 mg of midodrine for hypotension. Losartan discontinued. Continue to obtain daily weights and Strict I/O's. Renally dose medications and avoid nephrotoxic agents. Patient for outpatient ischemic evaluation per Cardiology. Leukocytosis likely related to retroperitoneal hematoma. Continue to monitor off antibiotics. Awaiting LifeVest and outpatient HD arrangements. 12/10: Continue hemodialysis per nephrology recommendations. We will discontinue heparin drip and start Eliquis 5 mg p.o. twice daily for anticoagulation. Blood pressure appears to be improved. Continue midodrine. Continue to obtain daily weights and Strict I/O's. Renally dose medications and avoid nephrotoxic agents. Patient for outpatient ischemic evaluation per Cardiology. Leukocytosis likely related to retroperitoneal hematoma. Continue to monitor off antibiotics. Awaiting LifeVest and outpatient HD arrangements. 12/11: Cardiology plans for Lexiscan in a.m. Continue hemodialysis per nephrology recommendations. We will discontinue heparin drip and start Eliquis 5 mg p.o. twice daily for anticoagulation. Blood pressure appears to be improved. Continue midodrine. Continue to obtain daily weights and Strict I/O's. Renally dose medications and avoid nephrotoxic agents. 12/12: Lexiscan this morning per cardiology. Continue hemodialysis per nephrology recommendations. Continue Eliquis for anticoagulation. Continue midodrine. Continue to obtain daily weights and Strict I/O's. Renally dose medications and avoid nephrotoxic agents. History Interval history: No new issues overnight. Hospitalist Physical - Constitutional Vitals: Temp Pulse Resp BP Pulse Ox 97.9 F 118 H 24 140/90 100 12/12/21 07:32 12/12/21 07:32 12/12/21 07:32 12/12/21 07:32 12/12/21 07:32 General appearance: Present: no acute distress, well-nourished, obese (Morbidly obese), other (Chronically ill looking) - EENT Eyes: Present: PERRL, EOM intact ENT: hearing intact, clear oral mucosa, dentition normal - Neck Neck: Present: supple, normal ROM - Respiratory Respiratory effort: normal Respiratory: bilateral: CTA - Cardiovascular Rhythm: regular Heart Sounds: Present: S1 & S2. Absent: gallop, rub - Extremities Extremities: no ischemia, No edema, Full ROM - Abdominal General gastrointestinal: soft, non-tender, non-distended, normal bowel sounds - Integumentary Integumentary: Present: clear, warm, dry - Neurologic Neurologic: CNII-XII intact, moves all extremities HEART Score - HEART Score Troponin: Troponin T 1.150 ng/mL (0.00-0.029) H* D 10/29/21 22:34 Results - Labs CBC & Chem 7: 12/11/21 13:08 12/12/21 05:15 Labs: Laboratory Last Values WBC 13.6 K/mm3 (4.5-11.0) H 12/11/21 13:08 RBC 2.78 M/mm3 (3.65-5.03) L 12/11/21 13:08 Hgb 8.1 gm/dl (10.1-14.3) L 12/11/21 13:08 Hct 25.2 % (30.3-42.9) L 12/11/21 13:08 MCV 91 fl (79-97) 12/11/21 13:08 MCH 29 pg (28-32) 12/11/21 13:08 MCHC 32 % (30-34) 12/11/21 13:08 RDW 17.7 % (13.2-15.2) H 12/11/21 13:08 Plt Count 182 K/mm3 (140-440) 12/11/21 13:08 Lymph % (Auto) 11.1 % (13.4-35.0) L 11/29/21 13:51 Swift % (Auto) 15.5 % (0.0-7.3) H 11/29/21 13:51 Eos % (Auto) 1.0 % (0.0-4.3) 11/29/21 13:51 Baso % (Auto) 0.6 % (0.0-1.8) 11/29/21 13:51 Lymph # (Auto) 1.4 K/mm3 (1.2-5.4) 11/29/21 13:51 Swift # (Auto) 2.0 K/mm3 (0.0-0.8) H 11/29/21 13:51 Eos # (Auto) 0.1 K/mm3 (0.0-0.4) 11/29/21 13:51 Baso # (Auto) 0.1 K/mm3 (0.0-0.1) 11/29/21 13:51 Add Manual Diff Complete 12/10/21 05:22 Total Counted 100 12/10/21 05:22 Seg Neutrophils % 71.8 % (40.0-70.0) H 11/29/21 13:51 Seg Neuts % (Manual) 73.0 % (40.0-70.0) H 12/10/21 05:22 Band Neutrophils % 12.0 % 12/10/21 05:22 Lymphocytes % (Manual) 7.0 % (13.4-35.0) L 12/10/21 05:22 Reactive Lymphs % (Man) 0 % 12/10/21 05:22 Monocytes % (Manual) 1.0 % (0.0-7.3) 12/10/21 05:22 Eosinophils % (Manual) 1.0 % (0.0-4.3) 12/10/21 05:22 Basophils % (Manual) 2.0 % (0.0-1.8) H 12/10/21 05:22 Metamyelocytes % 0 % 12/10/21 05:22 Myelocytes % 4.0 % 12/10/21 05:22 Promyelocytes % 0 % 12/10/21 05:22 Blast Cells % 0 % 12/10/21 05:22 Nucleated RBC % 1.0 % (0.0-0.9) H 12/10/21 05:22 Seg Neutrophils # 9.3 K/mm3 (1.8-7.7) H 11/29/21 13:51 Seg Neutrophils # Man 10.6 K/mm3 (1.8-7.7) H 12/10/21 05:22 Band Neutrophils # 1.7 K/mm3 12/10/21 05:22 Lymphocytes # (Manual) 1.0 K/mm3 (1.2-5.4) L 12/10/21 05:22 Abs React Lymphs (Man) 0.0 K/mm3 12/10/21 05:22 Monocytes # (Manual) 0.1 K/mm3 (0.0-0.8) 12/10/21 05:22 Eosinophils # (Manual) 0.1 K/mm3 (0.0-0.4) 12/10/21 05:22 Basophils # (Manual) 0.3 K/mm3 (0.0-0.1) H 12/10/21 05:22 Metamyelocytes # 0.0 K/mm3 12/10/21 05:22 Myelocytes # 0.6 K/mm3 12/10/21 05:22 Promyelocytes # 0.0 K/mm3 12/10/21 05:22 Blast Cells # 0.0 K/mm3 12/10/21 05:22 WBC Morphology Not Reportable 12/10/21 05:22 Hypersegmented Neuts Not Reportable 12/10/21 05:22 Hyposegmented Neuts Not Reportable 12/10/21 05:22 Hypogranular Neuts Not Reportable 12/10/21 05:22 Smudge Cells Not Reportable 12/10/21 05:22 Toxic Granulation Not Reportable 12/10/21 05:22 Toxic Vacuolation Not Reportable 12/10/21 05:22 Dohle Bodies Not Reportable 12/10/21 05:22 Pelger-Huet Anomaly Not Reportable 12/10/21 05:22 Manny Rods Not Reportable 12/10/21 05:22 Platelet Estimate Consistent w auto 12/10/21 05:22 Clumped Platelets Not Reportable 12/10/21 05:22 Plt Clumps, EDTA Not Reportable 12/10/21 05:22 Large Platelets Not Reportable 12/10/21 05:22 Giant Platelets Not Reportable 12/10/21 05:22 Platelet Satelliting Not Reportable 12/10/21 05:22 Plt Morphology Comment Not Reportable 12/10/21 05:22 RBC Morphology Not Reportable 12/10/21 05:22 Dimorphic RBCs Not Reportable 12/10/21 05:22 Polychromasia Not Reportable 12/10/21 05:22 Hypochromasia 1+ 12/10/21 05:22 Poikilocytosis Not Reportable 12/10/21 05:22 Anisocytosis 1+ 12/10/21 05:22 Microcytosis Not Reportable 12/10/21 05:22 Macrocytosis Not Reportable 12/10/21 05:22 Spherocytes Not Reportable 12/10/21 05:22 Pappenheimer Bodies Not Reportable 12/10/21 05:22 Sickle Cells Not Reportable 12/10/21 05:22 Target Cells Not Reportable 12/10/21 05:22 Tear Drop Cells Not Reportable 12/10/21 05:22 Ovalocytes Not Reportable 12/10/21 05:22 Helmet Cells Not Reportable 12/10/21 05:22 [place] Bodies Not Reportable 12/10/21 05:22 Collbran Rings Not Reportable 12/10/21 05:22 [place] Cells Not Reportable 12/10/21 05:22 Bite Cells Not Reportable 12/10/21 05:22 Crenated Cell Not Reportable 12/10/21 05:22 Elliptocytes Not Reportable 12/10/21 05:22 Acanthocytes (Spur) Not Reportable 12/10/21 05:22 Rouleaux Not Reportable 12/10/21 05:22 Hemoglobin C Crystals Not Reportable 12/10/21 05:22 Schistocytes Not Reportable 12/10/21 05:22 Malaria parasites Not Reportable 12/10/21 05:22 Magdy Bodies Not Reportable 12/10/21 05:22 Hem Pathologist Commnt No 12/10/21 05:22 PT 13.4 Sec. (12.2-14.9) 12/11/21 13:08 INR 0.92 (0.87-1.13) 12/11/21 13:08 APTT 116.8 Sec. (24.2-36.6) H* 12/11/21 13:08 D-Dimer > 65827 ng/mlDDU (0-234) H 10/30/21 Unknown Heparin Anti-Xa Level Cancelled 12/11/21 13:08 ABG pH 7.450 pH Units (7.350-7.450) 12/01/21 Unknown ABG pCO2 38.0 mm Hg 12/01/21 Unknown ABG pO2 88.9 mm Hg (80.0-90.0) 12/01/21 Unknown ABG HCO3 25.8 mmol/L (20.0-26.0) 12/01/21 Unknown ABG O2 Saturation 97.2 % (95.0-99.0) 12/01/21 Unknown ABG O2 Content 19.4 (0.0-44) 12/01/21 Unknown ABG Base Excess 1.9 mmol/L (-2.0-3.0) 12/01/21 Unknown ABG Hemoglobin 14.3 gm/dl (12.0-16.0) 12/01/21 Unknown ABG Carboxyhemoglobin 1.0 % (0.0-5.0) 12/01/21 Unknown ABG Methemoglobin 0.5 % (0.0-1.5) 12/01/21 Unknown Oxyhemoglobin 95.8 % (95.0-99.0) 12/01/21 Unknown FiO2 21 % 12/01/21 Unknown Sodium 129 mmol/L (137-145) L 12/12/21 05:15 Potassium 5.1 mmol/L (3.6-5.0) H 12/12/21 05:15 Chloride 95.8 mmol/L (98-107) L 12/12/21 05:15 Carbon Dioxide 21 mmol/L (22-30) L 12/12/21 05:15 Anion Gap 17 mmol/L 12/12/21 05:15 BUN 48 mg/dL (7-17) H 12/12/21 05:15 Creatinine 2.9 mg/dL (0.6-1.2) H 12/12/21 05:15 Estimated GFR 20 ml/min 12/12/21 05:15 BUN/Creatinine Ratio 17 % 12/12/21 05:15 Glucose 88 mg/dL (65-100) 12/12/21 05:15 POC Glucose 92 mg/dL (70-105) 12/12/21 07:33 Hemoglobin A1c 6.7 % (4-6) H 10/31/21 04:30 Lactic Acid 0.70 mmol/L (0.7-2.0) 10/31/21 15:45 Calcium 9.0 mg/dL (8.4-10.2) 12/12/21 05:15 Phosphorus 5.20 mg/dL (2.5-4.5) H 12/02/21 03:22 Magnesium 1.60 mg/dL (1.7-2.3) L 11/19/21 14:38 Ferritin 208.4 ng/mL (10.0-200.0) H 10/30/21 Unknown Total Bilirubin < 0.20 mg/dL (0.1-1.2) 11/06/21 02:35 AST 21 units/L (5-40) 11/06/21 02:35 ALT 77 units/L (7-56) H 11/06/21 02:35 Alkaline Phosphatase 84 units/L (35-129) 11/06/21 02:35 Ammonia 31.0 umol/L (25-60) 10/29/21 15:10 Lactate Dehydrogenase 469 units/L (91-180) H 10/30/21 Unknown Troponin T 1.150 ng/mL (0.00-0.029) H* D 10/29/21 22:34 C-Reactive Protein 13.40 mg/dL (0.00-1.30) H 10/30/21 Unknown Total Protein 6.3 g/dL (6.3-8.2) 11/06/21 02:35 Albumin 3.0 g/dL (3.9-5) L 11/06/21 02:35 Albumin/Globulin Ratio 0.9 % 11/06/21 02:35 Triglycerides 68 mg/dL (2-149) 10/29/21 19:40 Cholesterol 98 mg/dL (50-199) 10/29/21 19:40 LDL Cholesterol Direct 43 mg/dL (50-130) L 10/29/21 19:40 HDL Cholesterol 50 mg/dL (40-59) 10/29/21 19:40 Cholesterol/HDL Ratio 1.96 % 10/29/21 19:40 Procalcitonin 61.95 ng/mL (<0.15) 10/30/21 Unknown TSH 3.080 mlU/mL (0.270-4.200) 10/29/21 15:10 Urine Color Yellow (Yellow) 11/13/21 08:30 Urine Turbidity Slightly-cloudy (Clear) 11/13/21 08:30 Urine pH 6.0 (5.0-7.0) 11/13/21 08:30 Ur Specific [place] 1.010 (1.003-1.030) 11/13/21 08:30 Urine Protein <15 mg/dl mg/dL (Negative) 11/13/21 08:30 Urine Glucose (UA) Neg mg/dL (Negative) 11/13/21 08:30 Urine Ketones Tr mg/dL (Negative) 11/13/21 08:30 Urine Blood Sm (Negative) 11/13/21 08:30 Urine Nitrite Neg (Negative) 11/13/21 08:30 Urine Bilirubin Neg (Negative) 11/13/21 08:30 Urine Urobilinogen < 2.0 mg/dL (<2.0) 11/13/21 08:30 Ur Leukocyte Esterase Neg (Negative) 11/13/21 08:30 Urine WBC (Auto) < 1.0 /HPF (0.0-6.0) 11/13/21 08:30 Urine RBC (Auto) < 1.0 /HPF (0.0-6.0) 11/13/21 08:30 U Epithel Cells (Auto) < 1.0 /HPF (0-13.0) 11/13/21 08:30 Urine Mucus Few /HPF 10/29/21 18:15 Urine Eosinophils None seen (None Seen) 11/04/21 Unknown Urine Creatinine 190.9 mg/dL (0.1-20.0) H 11/04/21 Unknown Protein/Creatinin Ratio 0.90 11/04/21 Unknown Urine Sodium 10 mmol/L 11/04/21 Unknown Urine Total Protein 172 mg/dL (5-11.8) H 11/04/21 Unknown Salicylates < 0.3 mg/dL (2.8-20.0) L 10/29/21 15:10 Urine Opiates Screen Negative 10/29/21 18:15 Urine Methadone Screen Negative 10/29/21 18:15 Acetaminophen 5.0 ug/mL (10.0-30.0) L 10/29/21 15:10 Ur Barbiturates Screen Negative 10/29/21 18:15 Ur Phencyclidine Scrn Negative 10/29/21 18:15 Ur Amphetamines Screen Negative 10/29/21 18:15 U Benzodiazepines Scrn Negative 10/29/21 18:15 Urine Cocaine Screen Negative 10/29/21 18:15 U Marijuana (THC) Screen Negative 10/29/21 18:15 Drugs of Abuse Note Disclamer 10/29/21 18:15 Plasma/Serum Alcohol < 0.01 % (0-0.07) 10/29/21 15:10 Coronavirus (PCR) Negative (Negative) 10/30/21 Unknown Hepatitis A IgM Ab Non-reactive (NonReactive) 12/01/21 19:36 Hep Bs Antigen Non-reactive (Negative) 12/01/21 19:36 Hep B Core IgM Ab Non-reactive (NonReactive) 12/01/21 19:36 Hepatitis C Antibody Non-reactive (NonReactive) 12/01/21 19:36 Blood Type O POSITIVE 11/12/21 04:15 Antibody Screen Negative 11/12/21 04:15 Crossmatch See Detail 11/12/21 04:15 Krishna/IV: Voiding Method External Female Catheter Active Medications - Current Medications Current Medications: Generic Name Dose Route Start Last Admin Trade Name Freq PRN Reason Stop Dose Admin Acetaminophen 650 mg 10/29/21 17:04 11/12/21 22:53 Acetaminophen 650 Mg Rect Supp SC 650 mg Q6H PRN Administration Pain MILD(1-3)/Fever >100.5/NIEVES Acetaminophen 650 mg 11/19/21 16:35 12/11/21 16:42 Acetaminophen 325 Mg Tab PO 650 mg Q6HR PRN Administration PAIN Albumin Human 50 gm 12/02/21 11:00 12/02/21 11:55 Albumin Human 25% (25 Gm/100 Ml) Inj IV 50 gm ZACH PRN Administration Hypotension Alprazolam 0.25 mg 11/14/21 14:29 12/11/21 09:16 Alprazolam 0.25 Mg Tab PO 0.25 mg Q8H PRN Administration Anxiety Amiodarone HCl 200 mg 12/10/21 10:00 12/11/21 09:15 Amiodarone 200 Mg Tab PO 200 mg DAILY RAMON Administration Apixaban 5 mg 12/12/21 10:00 Apixaban 5 Mg Tab PO Q12HR [facility] Protocol Docusate Sodium 100 mg 11/18/21 15:00 12/11/21 21:24 Docusate Sodium 100 Mg Cap PO 100 mg BID RAMON Administration Epoetin [place]-epbx 10,000 unit 12/06/21 10:00 12/07/21 15:30 Epoetin [place]-Epbx 10,000 Unit/1 Ml Vial IV 10,000 unit ZACH PRN Administration hemodialysis Famotidine 10 mg 11/06/21 10:00 12/11/21 21:24 Famotidine 10 Mg Tab PO 10 mg BID RAMON Administration Gabapentin 100 mg 11/28/21 14:00 12/12/21 05:40 Gabapentin 100 Mg Cap PO 100 mg Q8HR RAMON Administration Hydrophilic Ointment 1 applic 10/29/21 14:29 11/09/21 08:51 Lip Therapy Vaseline TP 1 applic Q2HR PRN Administration Dry Lips Sodium Chloride 100 mls @ 999 mls/hr 12/01/21 14:44 Nacl 0.9% IV ZACH PRN Hypotension Insulin Human Lispro 0 unit 11/25/21 22:00 12/11/21 22:18 Insulin Lispro 100 Unit/Ml SUB-Q Not Given ACHS [facility] Protocol Lactulose 20 gm 11/18/21 14:43 12/06/21 15:26 Lactulose 20 Gm/30 Ml Oral Liqd PO 20 gm Q6H PRN Administration Constipation Melatonin 10 mg 11/22/21 17:31 12/10/21 22:19 Melatonin 5 Mg Tab PO 10 mg QHS PRN Administration Sleep Metoprolol Tartrate 100 mg 12/07/21 11:00 12/11/21 21:24 Metoprolol Tartrate 50 Mg Tab PO 100 mg BID RAMON Administration Midodrine 10 mg 12/01/21 12:00 12/11/21 17:23 Midodrine 5 Mg Tab PO Not Given TID@0800,1200,1600 RAMON Morphine Sulfate 1 mg 11/28/21 15:00 12/10/21 16:34 Morphine 2 Mg/1 Ml Inj IV 1 mg Q4H PRN Administration Pain, Moderate (4-6) Multi-Ingred Cream/Lotion/Oil/Oint 1 applic 10/29/21 14:29 11/06/21 09:25 Mineral Oil/Petrolatum, White Ophth Oint 3.5 Gm OU 1 applic Q4HR PRN Administration Dry Eye(s) Oxycodone/Acetaminophen 1 tab 11/27/21 14:31 12/12/21 00:12 Oxycodone /Acetaminophen 5-325mg Tab PO 1 tab Q4H PRN Administration Pain, Moderate (4-6) Polyethylene Glycol 17 gm 11/20/21 12:47 12/08/21 09:54 Polyethylene Glycol 3350 17 Gm Powder PO 17 gm QDAY PRN Administration Constipation Senna/Docusate Sodium 1 tab 11/16/21 22:00 12/11/21 21:28 Sennosides/Docusate Sodium 8.6/50 Mg Tab PO 1 tab BID RAMON Administration Sodium Chloride 10 ml 10/29/21 22:00 12/11/21 21:29 Sodium Chloride 0.9% 10 Ml Flush Syringe IV 10 ml BID RAMON Administration Sodium Chloride 10 ml 10/29/21 17:04 Sodium Chloride 0.9% 10 Ml Flush Syringe IV PRN PRN LINE FLUSH Nutrition/Malnutrition Assess - Dietary Evaluation Nutrition/Malnutrition Findings: Nutrition Notes Start: 10/30/21 09:50 Freq: Status: Active Protocol: Document 12/05/21 17:37 MEENU (Rec: 12/05/21 17:55 MEENU [id number]) Nutrition Notes Initial or Follow up Brief Note Current Diagnosis Acute Kidney Injury,Sepsis, Hypertension Other Pertinent Diagnosis s/p cardiac arrest, anemia Current Diet Renal -mech Soft- Diet + D Supplement (since D 12/02). Height 5 ft 10 in Weight 114.8 kg [place] Body Weight (kg) 68.18 BMI 36.3 Weight change and time frame No body weight change reported in 3 days. Weight Status Obese Subjective/Other Information RD consult for routine F/U on Dietary tolerance. Pt's PO intake of meals has improved to 75% and well tolerated, according to ADL notes. Pt still receiving vasopressors. Percent of energy/protein needs met: Prescribed Renal Diet provides for energy/protein needs (2, 072 Kcal/77 g) during LOS; additionally, Dietary Supplements will compensate for possible poor or insufficient PO intake of meals with 425 Kcal and 19 g of protein. Current % PO Good (75-100%) #1 Nutrition Diagnosis Inadequate oral intake Comments: Pt's PO intake of meals has been at 75%, and well tolerated, according to ADL notes. Diet advanced to Renal - mechanical soft-. Diagnosis Progress(for reassessment Improved documentation) Is patient on ventilator? No Is Patient Ambulatory and/or Out of Bed No REE-([facility]-confined to bed) 2120.952 Kcal/Kg value to use for calculation 14 Approximate Energy Requirements Using 1607 kcal/Kg Calculation Used for Recommendations Kcal/kg Additional Notes Protein: >1.2 g/Kg AdjBW; >110 g/day. Fluids: 1-1.5 L/day, or as per MD. Nutrition Intervention Change Diet Order: Continue Renal -mechanical soft- Diet. Add Supplement/Snack (indicate name/kcal Nepro once daily (vanilla) /protein ) Provides kCal: 425 Provides Protein (gm) 19 Goal #1 Compensate, through dietary supplementation, for possible poor or insufficient PO intake of meals during LOS. Goal #2 Facilitate PO intake of meals with mechanical modification during LOS. Goal #3 Maintain body weight within +/ -3% of admission body weight during LOS. Follow-Up By: 12/13/21 Additional Comments Continue monitoring food tolerance, %PO intake of meals , and BM.
[2021-12-12] MEDS: MIDODRINE 5 MG TAB PO SCH ×3 (10:15→15:54)
--- NOTE | 2021-12-12 13:17 | Progress Note ---
Assessment and Plan 66 YO Female with Obesity presents to ED for evaluation. Patient is intubated and on ventilatory support . Patient was attending [facility] services when the patient collapsed and lost consciousness. Witnesses began CPR. EMS was notified and upon arrival the patient was found to be in distress without perfusing cardiac rhythm. Patient initiated on ACLS protocol and subsequently intubated in the field and subsequent transported to [facility] for further care and evaluation of the aforementioned symptoms. The patient regained spontaneous ci rculation during transport. Patient seen and evaluated upon arrival and found to have acute hypoxemic respiratory failure, septic shock suspected secondary to aspiration pneumonia, metabolic acidosis, toxic metabolic encephalopathy, shock liver, and cardiac arrest with return of perfusing cardiac rhythm after initiation of ACLS protocol. Patient initiated on sepsis protocol as well as pneumonia protocol. Patient admitted to ICU. No reports of fever, chills, chest pain, palpitation, productive cough, skin rash, recent contact, known exposure to COVID-19. Patient has history of diabetes and hypertension. According to the chart review, patient has no history of smoking, alcohol or drug abuse. Patient eventually extubated. Patient transfered to Telemetry. Patient awake. on 2 litres O2. O2 saturation 100%. Patient Obese , No acute respiratory distress. ABGs on room air 12/12/21 reported PH 7.33, PCO2 50, PO2 57, HCO3 26, O2 saturation 88%. Recommend to place her back on 2 litres O2. Patient afebrile. Has mild leukocytosis. Blood pressure 122/71, pulse 57, Respirations 20. Chest xray done 11/18/21 reported Improving interstitial edema. Bilateral duplex study of legs 11/21/21 reported Acute occlusive thrombus is now visualized within the right peroneal veins. There is propagation of the left calf DVT into the popliteal vein on today's exam (near occlusive). CTA of chest:12/01/21 reported The exam is limited secondary to respiratory motion artifact. Low lung volumes. No central pulmonary thromboembolus is identified. The thoracic aorta is grossly unremarkable without aneurysm or dissection. Mild bibasilar atelectasis are present. Incidentally there are multiple healing anterior rib fractures involving the first, second, third, fourth, fifth, sixth and seventh ribs bilaterally. There is a nondisplaced fracture involving the left eighth rib. Chest xray done 12/12/21 reported Pleuroparenchymal opacity in the left lower hemithorax is probably unchanged. No new abnormality. No pneumothorax. Patient presently on famotidine. Eliquis. DVT Management as per vascular surgery. - Patient Problems (1) Acute hypoxemic respiratory failure Current Visit: Yes Status: Acute Plan to address problem: Patient presently on 2 litres O2. O2 saturation 100%. No acute respiratory distress. (2) Cardiopulmonary arrest Current Visit: Yes Status: Acute Plan to address problem: S/P Resucitation to ROSC. (3) Atrial fibrillation and flutter Current Visit: Yes Status: Acute Plan to address problem: Management as per cardiology. Patient is on Eliquis. (4) Acute metabolic encephalopathy Current Visit: Yes Status: Acute Plan to address problem: Management as per primary care. (5) Acute kidney injury Current Visit: Yes Status: Acute Plan to address problem: Management as per nephrology. (6) DVT (deep venous thrombosis) Current Visit: Yes Status: Acute Qualifiers: Affected thrombotic vein of extremity: peroneal Plan to address problem: Patient is on Eliquis. Management as per vascular surgery. (7) Obesity hypoventilation syndrome Current Visit: Yes Status: Acute Plan to address problem: Recommend sleep study as out patient. Dietary consultion for weight reduction diet. Recommend BIPAP during night time PRN for day time sleepiness. (8) Pneumothorax, right Current Visit: Yes Status: Acute Plan to address problem: S/P chest tube placement and expansion of right lung. Subjective Date of service: 12/12/21 Principal diagnosis: AHRF; Cardiac arrest; R. pneumothorax; pneumonia; AMS; DVT's; SIERRA; Obesity Interval history: 66 YO Female with Obesity presents to ED for evaluation. Patient is intubated and on ventilatory support . Patient was attending [facility] services when the patient collapsed and lost consciousness. Witnesses began CPR. EMS was notified and upon arrival the patient was found to be in distress without perfus ing cardiac rhythm. Patient initiated on ACLS protocol and subsequently intubated in the field and subsequent transported to [facility] for further care and evaluation of the aforementioned symptoms. The patient regained spontaneous circulation during transport. Patient seen and evaluated upon arrival and found to have acute hypoxemic respiratory failure, septic shock suspected secondary to aspiration pneumonia, metabolic acidosis, toxic metabolic encephalopathy, shock liver, and cardiac arrest with return of perfusing cardiac rhythm after initiation of ACLS protocol. Patient initiated on sepsis protocol as well as pneumonia protocol. Patient admitted to ICU. No reports of fever, chills, c hest pain, palpitation, productive cough, skin rash, recent contact, known exposure to COVID-19. Patient has history of diabetes and hypertension. According to the chart review, patient has no history of smoking, alcohol or drug abuse. Patient eventually extubated. Patient transfered to Telemetry. Patient awake. on 2 litres O2. O2 saturation 100%. Patient Obese , No acute respiratory distress. ABGs on room air 12/12/21 reported PH 7.33, PCO2 50, PO2 57, HCO3 26, O2 saturation 88%. Recommend to place her back on 2 litres O2. Patient afebrile. Has mild leukocytosis. Blood pressure 122/71, pulse 57, Respirations 20. Chest xray done 11/18/21 reported Improving interstitial edema. Bilateral duplex study of legs 11/21/21 reported Acute occlusive thrombus is now visualized within the right peroneal veins. There is propagation of the left calf DVT into the popliteal vein on today's exam (near occlusive). CTA of chest:12/01/21 reported The exam is limited secondary to respiratory motion artifact. Low lung volumes. No central pulmonary thromboembolus is identified. The thoracic aorta is grossly unremarkable without aneurysm or dissection. Mild bibasilar atelectasis are present. Incidentally there are multiple healing anterior rib fractures involving the first, second, third, fourth, fifth, sixth and seventh ribs bilaterally. There is a nondisplaced fracture involving the left eighth rib. Chest xray 12/12/21 reported Pleuroparenchymal opacity in the left lower hemithorax is probably unchanged. No new abnormality. No pneumothorax. Patient presently on famotidine. Eliquis. DVT Management as per vascular surgery. Objective Vital Signs - 12hr 12/12/21 12/12/21 12/12/21 04:00 04:45 07:32 Temperature 98.5 F 97.9 F Pulse Rate 118 H 118 H 118 H Respiratory 20 24 Rate Blood Pressure 133/78 140/90 O2 Sat by Pulse 100 100 Oximetry 12/12/21 10:00 Temperature Pulse Rate Respiratory Rate Blood Pressure O2 Sat by Pulse 100 Oximetry Constitutional: no acute distress, alert, other (elderly obese female with mildly increased respiratory effort at rest ) Eyes: non-icteric ENT: oropharynx moist Neck: supple, no lymphadenopathy, no JVD, other (large circumference) Effort: normal Ascultation: Bilateral: diminished breath sounds, rhonchi (bases) Percussion: Bilateral: not dull Cardiovascular: regular rate and rhythm, other (no R/M) Gastrointestinal: normoactive bowel sounds, soft, non-tender, other (obese) Integumentary: normal, other (Left flank ecchymosis with induration) Extremities: no cyanosis, pulses normal, no ischemia or petechiae, edema (2+) Neurologic: normal mental status, non-focal exam (grossly), pupils equal and round Psychiatric: other (Patient sleeping at this time.) CBC and BMP: 12/13/21 06:19 12/12/21 05:15 ABG, PT/INR, D-dimer: ABG ABG pH 7.450 pH Units (7.350-7.450) 12/01/21 Unknown ABG pCO2 38.0 mm Hg 12/01/21 Unknown ABG pO2 88.9 mm Hg (80.0-90.0) 12/01/21 Unknown ABG O2 Saturation 97.2 % (95.0-99.0) 12/01/21 Unknown PT/INR, D-dimer PT 13.4 Sec. (12.2-14.9) 12/11/21 13:08 INR 0.92 (0.87-1.13) 12/11/21 13:08 D-Dimer > 39682 ng/mlDDU (0-234) H 10/30/21 Unknown Abnormal lab findings: Abnormal Labs 10/29/21 10/29/21 10/29/21 15:10 15:10 15:10 WBC 27.8 H RBC Hgb Hct MCH 27 L RDW Plt Count Lymph % (Auto) [place] % (Auto) Lymph # (Auto) [place] # (Auto) Seg Neutrophils % Seg Neuts % (Manual) 78.0 H Lymphocytes % (Manual) 10.0 L Monocytes % (Manual) Basophils % (Manual) Nucleated RBC % Seg Neutrophils # Seg Neutrophils # Man 21.7 H Lymphocytes # (Manual) Monocytes # (Manual) 1.4 H Eosinophils # (Manual) Basophils # (Manual) PT INR APTT D-Dimer Heparin Anti-Xa Level ABG pH ABG pO2 ABG HCO3 ABG O2 Saturation ABG Base Excess ABG Hemoglobin Oxyhemoglobin Sodium Potassium Chloride Carbon Dioxide BUN Creatinine Glucose POC Glucose Hemoglobin A1c Lactic Acid 6.80 H* Calcium Phosphorus Magnesium Ferritin AST ALT Alkaline Phosphatase Lactate Dehydrogenase Troponin T 0.089 H C-Reactive Protein Total Protein Albumin LDL Cholesterol Direct Urine Creatinine Urine Total Protein Salicylates Acetaminophen Crossmatch 10/29/21 10/29/21 10/29/21 15:10 15:10 15:10 WBC RBC Hgb Hct MCH RDW Plt Count Lymph % (Auto) [place] % (Auto) Lymph # (Auto) [place] # (Auto) Seg Neutrophils % Seg Neuts % (Manual) Lymphocytes % (Manual) Monocytes % (Manual) Basophils % (Manual) Nucleated RBC % Seg Neutrophils # Seg Neutrophils # Man Lymphocytes # (Manual) Monocytes # (Manual) Eosinophils # (Manual) Basophils # (Manual) PT INR APTT D-Dimer Heparin Anti-Xa Level ABG pH ABG pO2 ABG HCO3 ABG O2 Saturation ABG Base Excess ABG Hemoglobin Oxyhemoglobin Sodium 136 L Potassium 2.8 L* Chloride 93.4 L Carbon Dioxide 20 L BUN Creatinine Glucose 330 H POC Glucose Hemoglobin A1c Lactic Acid Calcium Phosphorus Magnesium Ferritin AST 1013 H ALT 1289 H Alkaline Phosphatase 246 H Lactate Dehydrogenase Troponin T C-Reactive Protein Total Protein Albumin LDL Cholesterol Direct Urine Creatinine Urine Total Protein Salicylates < 0.3 L Acetaminophen 5.0 L Crossmatch 10/29/21 10/29/21 10/29/21 15:11 16:01 19:29 WBC RBC Hgb Hct MCH RDW Plt Count Lymph % (Auto) [place] % (Auto) Lymph # (Auto) [place] # (Auto) Seg Neutrophils % Seg Neuts % (Manual) Lymphocytes % (Manual) Monocytes % (Manual) Basophils % (Manual) Nucleated RBC % Seg Neutrophils # Seg Neutrophils # Man Lymphocytes # (Manual) Monocytes # (Manual) Eosinophils # (Manual) Basophils # (Manual) PT INR APTT D-Dimer Heparin Anti-Xa Level ABG pH 7.307 L ABG pO2 64.1 L ABG HCO3 ABG O2 Saturation 90.8 L ABG Base Excess -2.9 L ABG Hemoglobin Oxyhemoglobin 89.3 L Sodium Potassium Chloride Carbon Dioxide BUN Creatinine Glucose POC Glucose Hemoglobin A1c Lactic Acid 2.60 H* Calcium Phosphorus Magnesium 2.90 H Ferritin AST ALT Alkaline Phosphatase Lactate Dehydrogenase Troponin T C-Reactive Protein Total Protein Albumin LDL Cholesterol Direct Urine Creatinine Urine Total Protein Salicylates Acetaminophen Crossmatch 10/29/21 10/29/21 10/30/21 19:40 22:34 04:30 WBC 16.2 H RBC Hgb Hct MCH 26 L RDW 15.5 H Plt Count Lymph % (Auto) 6.2 L [place] % (Auto) Lymph # (Auto) 1.0 L [place] # (Auto) 0.9 H Seg Neutrophils % 88.1 H Seg Neuts % (Manual) Lymphocytes % (Manual) Monocytes % (Manual) Basophils % (Manual) Nucleated RBC % Seg Neutrophils # 14.2 H Seg Neutrophils # Man Lymphocytes # (Manual) Monocytes # (Manual) Eosinophils # (Manual) Basophils # (Manual) PT INR APTT D-Dimer Heparin Anti-Xa Level ABG pH ABG pO2 ABG HCO3 ABG O2 Saturation ABG Base Excess ABG Hemoglobin Oxyhemoglobin Sodium Potassium Chloride Carbon Dioxide BUN Creatinine Glucose POC Glucose Hemoglobin A1c Lactic Acid Calcium Phosphorus Magnesium Ferritin AST ALT Alkaline Phosphatase Lactate Dehydrogenase Troponin T 1.950 H* D 1.150 H* D C-Reactive Protein Total Protein Albumin LDL Cholesterol Direct 43 L Urine Creatinine Urine Total Protein Salicylates Acetaminophen Crossmatch 10/30/21 10/30/21 10/30/21 04:30 04:35 05:45 WBC RBC Hgb Hct MCH RDW Plt Count Lymph % (Auto) [place] % (Auto) Lymph # (Auto) [place] # (Auto) Seg Neutrophils % Seg Neuts % (Manual) Lymphocytes % (Manual) Monocytes % (Manual) Basophils % (Manual) Nucleated RBC % Seg Neutrophils # Seg Neutrophils # Man Lymphocytes # (Manual) Monocytes # (Manual) Eosinophils # (Manual) Basophils # (Manual) PT INR APTT D-Dimer Heparin Anti-Xa Level ABG pH ABG pO2 69.5 L ABG HCO3 ABG O2 Saturation ABG Base Excess -2.7 L ABG Hemoglobin Oxyhemoglobin 94.7 L Sodium Potassium Chloride Carbon Dioxide 21 L BUN Creatinine Glucose 159 H POC Glucose 151 H Hemoglobin A1c Lactic Acid Calcium 7.9 L D Phosphorus Magnesium Ferritin AST 461 H ALT 686 H Alkaline Phosphatase 130 H Lactate Dehydrogenase Troponin T C-Reactive Protein Total Protein 5.6 L D Albumin 3.2 L LDL Cholesterol Direct Urine Creatinine Urine Total Protein Salicylates Acetaminophen Crossmatch 10/30/21 10/30/21 10/30/21 11:24 15:59 16:30 WBC RBC Hgb Hct MCH RDW Plt Count Lymph % (Auto) [place] % (Auto) Lymph # (Auto) [place] # (Auto) Seg Neutrophils % Seg Neuts % (Manual) Lymphocytes % (Manual) Monocytes % (Manual) Basophils % (Manual) Nucleated RBC % Seg Neutrophils # Seg Neutrophils # Man Lymphocytes # (Manual) Monocytes # (Manual) Eosinophils # (Manual) Basophils # (Manual) PT 17.2 H INR 1.27 H APTT 44.4 H D-Dimer Heparin Anti-Xa Level ABG pH ABG pO2 ABG HCO3 ABG O2 Saturation ABG Base Excess ABG Hemoglobin Oxyhemoglobin Sodium Potassium Chloride Carbon Dioxide BUN Creatinine Glucose POC Glucose 153 H 109 H Hemoglobin A1c Lactic Acid Calcium Phosphorus Magnesium Ferritin AST ALT Alkaline Phosphatase Lactate Dehydrogenase Troponin T C-Reactive Protein Total Protein Albumin LDL Cholesterol Direct Urine Creatinine Urine Total Protein Salicylates Acetaminophen Crossmatch 10/30/21 10/30/21 10/30/21 23:00 Unknown Unknown WBC RBC Hgb Hct MCH RDW Plt Count Lymph % (Auto) [place] % (Auto) Lymph # (Auto) [place] # (Auto) Seg Neutrophils % Seg Neuts % (Manual) Lymphocytes % (Manual) Monocytes % (Manual) Basophils % (Manual) Nucleated RBC % Seg Neutrophils # Seg Neutrophils # Man Lymphocytes # (Manual) Monocytes # (Manual) Eosinophils # (Manual) Basophils # (Manual) PT INR APTT D-Dimer > 62015 H Heparin Anti-Xa Level 0.82 H ABG pH ABG pO2 ABG HCO3 ABG O2 Saturation ABG Base Excess ABG Hemoglobin Oxyhemoglobin Sodium Potassium Chloride Carbon Dioxide BUN Creatinine Glucose POC Glucose Hemoglobin A1c Lactic Acid Calcium Phosphorus Magnesium Ferritin 208.4 H AST ALT Alkaline Phosphatase Lactate Dehydrogenase Troponin T C-Reactive Protein Total Protein Albumin LDL Cholesterol Direct Urine Creatinine Urine Total Protein Salicylates Acetaminophen Crossmatch 10/30/21 10/31/21 10/31/21 Unknown 04:30 04:30 WBC 14.4 H RBC Hgb Hct MCH 26 L RDW Plt Count Lymph % (Auto) [place] % (Auto) Lymph # (Auto) [place] # (Auto) Seg Neutrophils % Seg Neuts % (Manual) Lymphocytes % (Manual) Monocytes % (Manual) Basophils % (Manual) Nucleated RBC % Seg Neutrophils # Seg Neutrophils # Man Lymphocytes # (Manual) Monocytes # (Manual) Eosinophils # (Manual) Basophils # (Manual) PT INR APTT D-Dimer Heparin Anti-Xa Level ABG pH ABG pO2 ABG HCO3 ABG O2 Saturation ABG Base Excess ABG Hemoglobin Oxyhemoglobin Sodium Potassium 3.5 L Chloride 107.5 H Carbon Dioxide 20 L BUN 28 H Creatinine 1.7 H Glucose 113 H POC Glucose Hemoglobin A1c Lactic Acid Calcium 7.9 L Phosphorus Magnesium Ferritin AST ALT Alkaline Phosphatase Lactate Dehydrogenase 469 H Troponin T C-Reactive Protein 13.40 H Total Protein Albumin LDL Cholesterol Direct Urine Creatinine Urine Total Protein Salicylates Acetaminophen Crossmatch 10/31/21 10/31/21 10/31/21 04:30 05:11 15:30 WBC RBC Hgb Hct MCH RDW Plt Count Lymph % (Auto) [place] % (Auto) Lymph # (Auto) [place] # (Auto) Seg Neutrophils % Seg Neuts % (Manual) Lymphocytes % (Manual) Monocytes % (Manual) Basophils % (Manual) Nucleated RBC % Seg Neutrophils # Seg Neutrophils # Man Lymphocytes # (Manual) Monocytes # (Manual) Eosinophils # (Manual) Basophils # (Manual) PT INR APTT D-Dimer Heparin Anti-Xa Level ABG pH 7.222 L ABG pO2 61.5 L ABG HCO3 ABG O2 Saturation 86.2 L ABG Base Excess -6.3 L ABG Hemoglobin 11.2 L Oxyhemoglobin 84.5 L Sodium Potassium Chloride Carbon Dioxide BUN Creatinine Glucose POC Glucose 106 H Hemoglobin A1c 6.7 H Lactic Acid Calcium Phosphorus Magnesium Ferritin AST ALT Alkaline Phosphatase Lactate Dehydrogenase Troponin T C-Reactive Protein Total Protein Albumin LDL Cholesterol Direct Urine Creatinine Urine Total Protein Salicylates Acetaminophen Crossmatch 10/31/21 10/31/21 10/31/21 16:07 16:35 17:45 WBC RBC Hgb Hct MCH RDW Plt Count Lymph % (Auto) [place] % (Auto) Lymph # (Auto) [place] # (Auto) Seg Neutrophils % Seg Neuts % (Manual) Lymphocytes % (Manual) Monocytes % (Manual) Basophils % (Manual) Nucleated RBC % Seg Neutrophils # Seg Neutrophils # Man Lymphocytes # (Manual) Monocytes # (Manual) Eosinophils # (Manual) Basophils # (Manual) PT INR APTT D-Dimer Heparin Anti-Xa Level ABG pH 7.267 L ABG pO2 58.3 L ABG HCO3 ABG O2 Saturation 88.3 L ABG Base Excess -5.9 L ABG Hemoglobin 10.1 L Oxyhemoglobin 86.5 L Sodium Potassium Chloride Carbon Dioxide BUN Creatinine Glucose POC Glucose 115 H Hemoglobin A1c Lactic Acid Calcium Phosphorus Magnesium Ferritin AST ALT Alkaline Phosphatase Lactate Dehydrogenase Troponin T C-Reactive Protein Total Protein Albumin LDL Cholesterol Direct Urine Creatinine 383.6 H Urine Total Protein Salicylates Acetaminophen Crossmatch 11/01/21 11/01/21 11/01/21 00:06 05:08 06:00 WBC 12.6 H RBC 3.43 L Hgb 8.9 L Hct 28.7 L MCH 26 L RDW 15.7 H Plt Count 130 L Lymph % (Auto) [place] % (Auto) Lymph # (Auto) [place] # (Auto) Seg Neutrophils % Seg Neuts % (Manual) Lymphocytes % (Manual) Monocytes % (Manual) Basophils % (Manual) Nucleated RBC % Seg Neutrophils # Seg Neutrophils # Man Lymphocytes # (Manual) Monocytes # (Manual) Eosinophils # (Manual) Basophils # (Manual) PT INR APTT D-Dimer Heparin Anti-Xa Level ABG pH ABG pO2 ABG HCO3 ABG O2 Saturation ABG Base Excess ABG Hemoglobin Oxyhemoglobin Sodium Potassium Chloride Carbon Dioxide BUN Creatinine Glucose POC Glucose 114 H 120 H Hemoglobin A1c Lactic Acid Calcium Phosphorus Magnesium Ferritin AST ALT Alkaline Phosphatase Lactate Dehydrogenase Troponin T C-Reactive Protein Total Protein Albumin LDL Cholesterol Direct Urine Creatinine Urine Total Protein Salicylates Acetaminophen Crossmatch 11/01/21 11/01/21 11/01/21 06:00 11:43 14:00 WBC RBC Hgb Hct MCH RDW Plt Count Lymph % (Auto) [place] % (Auto) Lymph # (Auto) [place] # (Auto) Seg Neutrophils % Seg Neuts % (Manual) Lymphocytes % (Manual) Monocytes % (Manual) Basophils % (Manual) Nucleated RBC % Seg Neutrophils # Seg Neutrophils # Man Lymphocytes # (Manual) Monocytes # (Manual) Eosinophils # (Manual) Basophils # (Manual) PT INR APTT D-Dimer Heparin Anti-Xa Level ABG pH 7.349 L ABG pO2 75.6 L ABG HCO3 ABG O2 Saturation ABG Base Excess -3.9 L ABG Hemoglobin 9.8 L Oxyhemoglobin 93.5 L Sodium Potassium Chloride 114.1 H Carbon Dioxide 20 L BUN 33 H Creatinine Glucose 131 H POC Glucose 151 H Hemoglobin A1c Lactic Acid Calcium 7.7 L Phosphorus Magnesium Ferritin AST 79 H ALT 259 H Alkaline Phosphatase Lactate Dehydrogenase Troponin T C-Reactive Protein Total Protein 5.5 L Albumin 2.7 L LDL Cholesterol Direct Urine Creatinine Urine Total Protein Salicylates Acetaminophen Crossmatch 11/01/21 11/01/21 11/02/21 16:45 22:55 05:12 WBC RBC Hgb Hct MCH RDW Plt Count Lymph % (Auto) [place] % (Auto) Lymph # (Auto) [place] # (Auto) Seg Neutrophils % Seg Neuts % (Manual) Lymphocytes % (Manual) Monocytes % (Manual) Basophils % (Manual) Nucleated RBC % Seg Neutrophils # Seg Neutrophils # Man Lymphocytes # (Manual) Monocytes # (Manual) Eosinophils # (Manual) Basophils # (Manual) PT INR APTT D-Dimer Heparin Anti-Xa Level ABG pH ABG pO2 ABG HCO3 ABG O2 Saturation ABG Base Excess ABG Hemoglobin Oxyhemoglobin Sodium Potassium Chloride Carbon Dioxide BUN Creatinine Glucose POC Glucose 119 H 129 H 140 H Hemoglobin A1c Lactic Acid Calcium Phosphorus Magnesium Ferritin AST ALT Alkaline Phosphatase Lactate Dehydrogenase Troponin T C-Reactive Protein Total Protein Albumin LDL Cholesterol Direct Urine Creatinine Urine Total Protein Salicylates Acetaminophen Crossmatch 11/02/21 11/02/21 11/02/21 05:35 05:35 09:35 WBC 13.5 H RBC 3.60 L Hgb 9.7 L Hct MCH 27 L RDW 15.7 H Plt Count Lymph % (Auto) [place] % (Auto) Lymph # (Auto) [place] # (Auto) Seg Neutrophils % Seg Neuts % (Manual) Lymphocytes % (Manual) Monocytes % (Manual) Basophils % (Manual) Nucleated RBC % Seg Neutrophils # Seg Neutrophils # Man Lymphocytes # (Manual) Monocytes # (Manual) Eosinophils # (Manual) Basophils # (Manual) PT INR APTT D-Dimer Heparin Anti-Xa Level ABG pH 7.208 L ABG pO2 75.9 L ABG HCO3 ABG O2 Saturation 93.6 L ABG Base Excess -4.3 L ABG Hemoglobin 9.1 L Oxyhemoglobin 91.6 L Sodium Potassium 5.2 H D Chloride 112.6 H Carbon Dioxide BUN 32 H Creatinine Glucose 152 H POC Glucose Hemoglobin A1c Lactic Acid Calcium 8.2 L Phosphorus Magnesium 2.70 H Ferritin AST ALT Alkaline Phosphatase Lactate Dehydrogenase Troponin T C-Reactive Protein Total Protein Albumin LDL Cholesterol Direct Urine Creatinine Urine Total Protein Salicylates Acetaminophen Crossmatch 11/02/21 11/02/21 11/02/21 11:44 17:13 23:43 WBC RBC Hgb Hct MCH RDW Plt Count Lymph % (Auto) [place] % (Auto) Lymph # (Auto) [place] # (Auto) Seg Neutrophils % Seg Neuts % (Manual) Lymphocytes % (Manual) Monocytes % (Manual) Basophils % (Manual) Nucleated RBC % Seg Neutrophils # Seg Neutrophils # Man Lymphocytes # (Manual) Monocytes # (Manual) Eosinophils # (Manual) Basophils # (Manual) PT INR APTT D-Dimer Heparin Anti-Xa Level ABG pH ABG pO2 ABG HCO3 ABG O2 Saturation ABG Base Excess ABG Hemoglobin Oxyhemoglobin Sodium Potassium Chloride Carbon Dioxide BUN Creatinine Glucose POC Glucose 173 H 148 H 137 H Hemoglobin A1c Lactic Acid Calcium Phosphorus Magnesium Ferritin AST ALT Alkaline Phosphatase Lactate Dehydrogenase Troponin T C-Reactive Protein Total Protein Albumin LDL Cholesterol Direct Urine Creatinine Urine Total Protein Salicylates Acetaminophen Crossmatch 11/03/21 11/03/21 11/03/21 04:59 06:00 06:00 WBC RBC 3.43 L Hgb 9.1 L Hct 29.0 L MCH 26 L RDW 16.4 H Plt Count Lymph % (Auto) [place] % (Auto) Lymph # (Auto) [place] # (Auto) Seg Neutrophils % Seg Neuts % (Manual) Lymphocytes % (Manual) Monocytes % (Manual) Basophils % (Manual) Nucleated RBC % Seg Neutrophils # Seg Neutrophils # Man Lymphocytes # (Manual) Monocytes # (Manual) Eosinophils # (Manual) Basophils # (Manual) PT INR APTT D-Dimer Heparin Anti-Xa Level 0.17 L ABG pH ABG pO2 ABG HCO3 ABG O2 Saturation ABG Base Excess ABG Hemoglobin Oxyhemoglobin Sodium Potassium Chloride Carbon Dioxide BUN Creatinine Glucose POC Glucose 167 H Hemoglobin A1c Lactic Acid Calcium Phosphorus Magnesium Ferritin AST ALT Alkaline Phosphatase Lactate Dehydrogenase Troponin T C-Reactive Protein Total Protein Albumin LDL Cholesterol Direct Urine Creatinine Urine Total Protein Salicylates Acetaminophen Crossmatch 11/03/21 11/03/21 11/03/21 06:00 09:20 11:58 WBC RBC Hgb Hct MCH RDW Plt Count Lymph % (Auto) [place] % (Auto) Lymph # (Auto) [place] # (Auto) Seg Neutrophils % Seg Neuts % (Manual) Lymphocytes % (Manual) Monocytes % (Manual) Basophils % (Manual) Nucleated RBC % Seg Neutrophils # Seg Neutrophils # Man Lymphocytes # (Manual) Monocytes # (Manual) Eosinophils # (Manual) Basophils # (Manual) PT INR APTT D-Dimer Heparin Anti-Xa Level ABG pH 7.274 L ABG pO2 75.6 L ABG HCO3 ABG O2 Saturation 94.9 L ABG Base Excess -2.5 L ABG Hemoglobin 9.3 L Oxyhemoglobin 92.9 L Sodium 149 H Potassium Chloride 117.5 H Carbon Dioxide BUN 32 H Creatinine Glucose 173 H POC Glucose 192 H Hemoglobin A1c Lactic Acid Calcium 8.1 L Phosphorus Magnesium Ferritin AST ALT Alkaline Phosphatase Lactate Dehydrogenase Troponin T C-Reactive Protein Total Protein Albumin LDL Cholesterol Direct Urine Creatinine Urine Total Protein Salicylates Acetaminophen Crossmatch 11/03/21 11/03/21 11/04/21 18:22 Unknown 00:09 WBC RBC Hgb Hct MCH RDW Plt Count Lymph % (Auto) [place] % (Auto) Lymph # (Auto) [place] # (Auto) Seg Neutrophils % Seg Neuts % (Manual) Lymphocytes % (Manual) Monocytes % (Manual) Basophils % (Manual) Nucleated RBC % Seg Neutrophils # Seg Neutrophils # Man Lymphocytes # (Manual) Monocytes # (Manual) Eosinophils # (Manual) Basophils # (Manual) PT INR APTT D-Dimer Heparin Anti-Xa Level 0.29 L ABG pH ABG pO2 ABG HCO3 ABG O2 Saturation ABG Base Excess ABG Hemoglobin Oxyhemoglobin Sodium Potassium Chloride Carbon Dioxide BUN Creatinine Glucose POC Glucose 178 H 221 H Hemoglobin A1c Lactic Acid Calcium Phosphorus Magnesium Ferritin AST ALT Alkaline Phosphatase Lactate Dehydrogenase Troponin T C-Reactive Protein Total Protein Albumin LDL Cholesterol Direct Urine Creatinine Urine Total Protein Salicylates Acetaminophen Crossmatch 11/04/21 11/04/21 11/04/21 05:09 09:40 09:40 WBC 16.8 H RBC Hgb Hct MCH 27 L RDW 16.5 H Plt Count Lymph % (Auto) [place] % (Auto) Lymph # (Auto) [place] # (Auto) Seg Neutrophils % Seg Neuts % (Manual) Lymphocytes % (Manual) Monocytes % (Manual) Basophils % (Manual) Nucleated RBC % Seg Neutrophils # Seg Neutrophils # Man Lymphocytes # (Manual) Monocytes # (Manual) Eosinophils # (Manual) Basophils # (Manual) PT INR APTT D-Dimer Heparin Anti-Xa Level ABG pH ABG pO2 ABG HCO3 ABG O2 Saturation ABG Base Excess ABG Hemoglobin Oxyhemoglobin Sodium Potassium 5.9 H Chloride 108.5 H Carbon Dioxide BUN 54 H Creatinine 1.8 H Glucose 198 H POC Glucose 182 H Hemoglobin A1c Lactic Acid Calcium Phosphorus Magnesium 3.00 H Ferritin AST ALT Alkaline Phosphatase Lactate Dehydrogenase Troponin T C-Reactive Protein Total Protein Albumin LDL Cholesterol Direct Urine Creatinine Urine Total Protein Salicylates Acetaminophen Crossmatch 11/04/21 11/04/21 11/04/21 12:13 13:34 14:05 WBC RBC Hgb Hct MCH RDW Plt Count Lymph % (Auto) [place] % (Auto) Lymph # (Auto) [place] # (Auto) Seg Neutrophils % Seg Neuts % (Manual) Lymphocytes % (Manual) Monocytes % (Manual) Basophils % (Manual) Nucleated RBC % Seg Neutrophils # Seg Neutrophils # Man Lymphocytes # (Manual) Monocytes # (Manual) Eosinophils # (Manual) Basophils # (Manual) PT INR APTT D-Dimer Heparin Anti-Xa Level ABG pH 7.223 L ABG pO2 71.3 L ABG HCO3 ABG O2 Saturation 92.8 L ABG Base Excess ABG Hemoglobin 8.2 L Oxyhemoglobin 91.0 L Sodium Potassium Chloride Carbon Dioxide BUN Creatinine Glucose POC Glucose 184 H Hemoglobin A1c Lactic Acid Calcium Phosphorus Magnesium Ferritin AST ALT Alkaline Phosphatase Lactate Dehydrogenase Troponin T C-Reactive Protein Total Protein Albumin LDL Cholesterol Direct Urine Creatinine 184.6 H Urine Total Protein Salicylates Acetaminophen Crossmatch 11/04/21 11/04/21 11/05/21 18:02 Unknown 00:07 WBC RBC Hgb Hct MCH RDW Plt Count Lymph % (Auto) [place] % (Auto) Lymph # (Auto) [place] # (Auto) Seg Neutrophils % Seg Neuts % (Manual) Lymphocytes % (Manual) Monocytes % (Manual) Basophils % (Manual) Nucleated RBC % Seg Neutrophils # Seg Neutrophils # Man Lymphocytes # (Manual) Monocytes # (Manual) Eosinophils # (Manual) Basophils # (Manual) PT INR APTT D-Dimer Heparin Anti-Xa Level ABG pH ABG pO2 ABG HCO3 ABG O2 Saturation ABG Base Excess ABG Hemoglobin Oxyhemoglobin Sodium Potassium Chloride Carbon Dioxide BUN Creatinine Glucose POC Glucose 262 H 259 H Hemoglobin A1c Lactic Acid Calcium Phosphorus Magnesium Ferritin AST ALT Alkaline Phosphatase Lactate Dehydrogenase Troponin T C-Reactive Protein Total Protein Albumin LDL Cholesterol Direct Urine Creatinine 190.9 H Urine Total Protein 172 H Salicylates Acetaminophen Crossmatch 11/05/21 11/05/21 11/05/21 04:20 04:20 05:30 WBC 17.9 H RBC 3.64 L Hgb 9.7 L Hct MCH 27 L RDW 16.4 H Plt Count Lymph % (Auto) [place] % (Auto) Lymph # (Auto) [place] # (Auto) Seg Neutrophils % Seg Neuts % (Manual) Lymphocytes % (Manual) Monocytes % (Manual) Basophils % (Manual) Nucleated RBC % Seg Neutrophils # Seg Neutrophils # Man Lymphocytes # (Manual) Monocytes # (Manual) Eosinophils # (Manual) Basophils # (Manual) PT INR APTT D-Dimer Heparin Anti-Xa Level ABG pH ABG pO2 ABG HCO3 ABG O2 Saturation ABG Base Excess ABG Hemoglobin Oxyhemoglobin Sodium Potassium 5.6 H Chloride 108.4 H Carbon Dioxide BUN 71 H Creatinine 1.9 H Glucose 270 H POC Glucose 283 H Hemoglobin A1c Lactic Acid Calcium Phosphorus Magnesium Ferritin AST ALT Alkaline Phosphatase Lactate Dehydrogenase Troponin T C-Reactive Protein Total Protein Albumin LDL Cholesterol Direct Urine Creatinine Urine Total Protein Salicylates Acetaminophen Crossmatch 11/05/21 11/05/21 11/05/21 10:05 12:10 15:29 WBC RBC Hgb Hct MCH RDW Plt Count Lymph % (Auto) [place] % (Auto) Lymph # (Auto) [place] # (Auto) Seg Neutrophils % Seg Neuts % (Manual) Lymphocytes % (Manual) Monocytes % (Manual) Basophils % (Manual) Nucleated RBC % Seg Neutrophils # Seg Neutrophils # Man Lymphocytes # (Manual) Monocytes # (Manual) Eosinophils # (Manual) Basophils # (Manual) PT INR APTT D-Dimer Heparin Anti-Xa Level ABG pH 7.248 L ABG pO2 73.7 L ABG HCO3 26.2 H ABG O2 Saturation 93.1 L ABG Base Excess ABG Hemoglobin 8.9 L Oxyhemoglobin 91.4 L Sodium Potassium Chloride Carbon Dioxide BUN Creatinine Glucose POC Glucose 225 H 199 H Hemoglobin A1c Lactic Acid Calcium Phosphorus Magnesium Ferritin AST ALT Alkaline Phosphatase Lactate Dehydrogenase Troponin T C-Reactive Protein Total Protein Albumin LDL Cholesterol Direct Urine Creatinine Urine Total Protein Salicylates Acetaminophen Crossmatch 11/05/21 11/05/21 11/05/21 15:51 17:32 17:40 WBC RBC Hgb Hct MCH RDW Plt Count Lymph % (Auto) [place] % (Auto) Lymph # (Auto) [place] # (Auto) Seg Neutrophils % Seg Neuts % (Manual) Lymphocytes % (Manual) Monocytes % (Manual) Basophils % (Manual) Nucleated RBC % Seg Neutrophils # Seg Neutrophils # Man Lymphocytes # (Manual) Monocytes # (Manual) Eosinophils # (Manual) Basophils # (Manual) PT INR APTT D-Dimer Heparin Anti-Xa Level ABG pH ABG pO2 ABG HCO3 ABG O2 Saturation ABG Base Excess ABG Hemoglobin Oxyhemoglobin Sodium Potassium 5.2 H Chloride 107.8 H Carbon Dioxide BUN 79 H Creatinine 1.9 H Glucose 204 H POC Glucose 278 H 197 H Hemoglobin A1c Lactic Acid Calcium Phosphorus Magnesium Ferritin AST ALT Alkaline Phosphatase Lactate Dehydrogenase Troponin T C-Reactive Protein Total Protein Albumin LDL Cholesterol Direct Urine Creatinine Urine Total Protein Salicylates Acetaminophen Crossmatch 11/05/21 11/05/21 11/05/21 21:25 22:22 23:43 WBC RBC Hgb Hct MCH RDW Plt Count Lymph % (Auto) [place] % (Auto) Lymph # (Auto) [place] # (Auto) Seg Neutrophils % Seg Neuts % (Manual) Lymphocytes % (Manual) Monocytes % (Manual) Basophils % (Manual) Nucleated RBC % Seg Neutrophils # Seg Neutrophils # Man Lymphocytes # (Manual) Monocytes # (Manual) Eosinophils # (Manual) Basophils # (Manual) PT INR APTT D-Dimer Heparin Anti-Xa Level ABG pH ABG pO2 ABG HCO3 ABG O2 Saturation ABG Base Excess ABG Hemoglobin Oxyhemoglobin Sodium Potassium 5.3 H Chloride 109.2 H Carbon Dioxide BUN 81 H Creatinine 2.0 H Glucose 195 H POC Glucose 180 H 203 H Hemoglobin A1c Lactic Acid Calcium Phosphorus Magnesium Ferritin AST ALT Alkaline Phosphatase Lactate Dehydrogenase Troponin T C-Reactive Protein Total Protein Albumin LDL Cholesterol Direct Urine Creatinine Urine Total Protein Salicylates Acetaminophen Crossmatch 11/05/21 11/06/21 11/06/21 Unknown 02:35 05:09 WBC RBC Hgb Hct MCH RDW Plt Count Lymph % (Auto) [place] % (Auto) Lymph # (Auto) [place] # (Auto) Seg Neutrophils % Seg Neuts % (Manual) Lymphocytes % (Manual) Monocytes % (Manual) Basophils % (Manual) Nucleated RBC % Seg Neutrophils # Seg Neutrophils # Man Lymphocytes # (Manual) Monocytes # (Manual) Eosinophils # (Manual) Basophils # (Manual) PT INR APTT D-Dimer Heparin Anti-Xa Level ABG pH ABG pO2 ABG HCO3 ABG O2 Saturation ABG Base Excess ABG Hemoglobin Oxyhemoglobin Sodium 146 H Potassium 6.0 H Chloride 108.1 H 107.1 H Carbon Dioxide 21 L BUN 80 H 84 H Creatinine 2.0 H 2.0 H Glucose 238 H 235 H POC Glucose 215 H Hemoglobin A1c Lactic Acid Calcium Phosphorus Magnesium 2.80 H Ferritin AST ALT 77 H Alkaline Phosphatase Lactate Dehydrogenase Troponin T C-Reactive Protein Total Protein Albumin 3.0 L LDL Cholesterol Direct Urine Creatinine Urine Total Protein Salicylates Acetaminophen Crossmatch 11/06/21 11/06/21 11/06/21 05:40 08:07 08:07 WBC RBC Hgb Hct MCH RDW Plt Count Lymph % (Auto) [place] % (Auto) Lymph # (Auto) [place] # (Auto) Seg Neutrophils % Seg Neuts % (Manual) Lymphocytes % (Manual) Monocytes % (Manual) Basophils % (Manual) Nucleated RBC % Seg Neutrophils # Seg Neutrophils # Man Lymphocytes # (Manual) Monocytes # (Manual) Eosinophils # (Manual) Basophils # (Manual) PT INR APTT D-Dimer Heparin Anti-Xa Level 1.24 H ABG pH 7.311 L ABG pO2 72.8 L ABG HCO3 29.7 H ABG O2 Saturation 94.1 L ABG Base Excess ABG Hemoglobin 11.4 L Oxyhemoglobin 92.3 L Sodium Potassium 5.2 H Chloride Carbon Dioxide BUN 85 H Creatinine 2.3 H Glucose 236 H POC Glucose Hemoglobin A1c Lactic Acid Calcium Phosphorus Magnesium Ferritin AST ALT Alkaline Phosphatase Lactate Dehydrogenase Troponin T C-Reactive Protein Total Protein Albumin LDL Cholesterol Direct Urine Creatinine Urine Total Protein Salicylates Acetaminophen Crossmatch 11/06/21 11/06/21 11/06/21 12:14 12:57 14:28 WBC RBC Hgb Hct MCH RDW Plt Count Lymph % (Auto) [place] % (Auto) Lymph # (Auto) [place] # (Auto) Seg Neutrophils % Seg Neuts % (Manual) Lymphocytes % (Manual) Monocytes % (Manual) Basophils % (Manual) Nucleated RBC % Seg Neutrophils # Seg Neutrophils # Man Lymphocytes # (Manual) Monocytes # (Manual) Eosinophils # (Manual) Basophils # (Manual) PT INR APTT D-Dimer Heparin Anti-Xa Level ABG pH 7.282 L ABG pO2 72.6 L ABG HCO3 30.8 H ABG O2 Saturation 93.7 L ABG Base Excess 3.2 H ABG Hemoglobin 8.6 L Oxyhemoglobin 91.8 L Sodium Potassium Chloride Carbon Dioxide BUN 91 H Creatinine 2.6 H Glucose 259 H POC Glucose 225 H Hemoglobin A1c Lactic Acid Calcium Phosphorus Magnesium Ferritin AST ALT Alkaline Phosphatase Lactate Dehydrogenase Troponin T C-Reactive Protein Total Protein Albumin LDL Cholesterol Direct Urine Creatinine Urine Total Protein Salicylates Acetaminophen Crossmatch 11/06/21 11/06/21 11/06/21 17:28 19:20 21:30 WBC RBC Hgb Hct MCH RDW Plt Count Lymph % (Auto) [place] % (Auto) Lymph # (Auto) [place] # (Auto) Seg Neutrophils % Seg Neuts % (Manual) Lymphocytes % (Manual) Monocytes % (Manual) Basophils % (Manual) Nucleated RBC % Seg Neutrophils # Seg Neutrophils # Man Lymphocytes # (Manual) Monocytes # (Manual) Eosinophils # (Manual) Basophils # (Manual) PT INR APTT D-Dimer Heparin Anti-Xa Level 0.73 H ABG pH ABG pO2 ABG HCO3 ABG O2 Saturation ABG Base Excess ABG Hemoglobin Oxyhemoglobin Sodium Potassium Chloride Carbon Dioxide BUN 95 H Creatinine 2.9 H Glucose 233 H POC Glucose 206 H Hemoglobin A1c Lactic Acid Calcium Phosphorus Magnesium Ferritin AST ALT Alkaline Phosphatase Lactate Dehydrogenase Troponin T C-Reactive Protein Total Protein Albumin LDL Cholesterol Direct Urine Creatinine Urine Total Protein Salicylates Acetaminophen Crossmatch 11/06/21 11/07/21 11/07/21 22:56 05:06 06:30 WBC RBC Hgb Hct MCH RDW Plt Count Lymph % (Auto) [place] % (Auto) Lymph # (Auto) [place] # (Auto) Seg Neutrophils % Seg Neuts % (Manual) Lymphocytes % (Manual) Monocytes % (Manual) Basophils % (Manual) Nucleated RBC % Seg Neutrophils # Seg Neutrophils # Man Lymphocytes # (Manual) Monocytes # (Manual) Eosinophils # (Manual) Basophils # (Manual) PT INR APTT D-Dimer Heparin Anti-Xa Level ABG pH ABG pO2 ABG HCO3 ABG O2 Saturation ABG Base Excess ABG Hemoglobin Oxyhemoglobin Sodium 146 H Potassium Chloride Carbon Dioxide BUN 98 H Creatinine 2.8 H Glucose 202 H POC Glucose 215 H 172 H Hemoglobin A1c Lactic Acid Calcium Phosphorus 4.90 H D Magnesium 2.90 H Ferritin AST ALT Alkaline Phosphatase Lactate Dehydrogenase Troponin T C-Reactive Protein Total Protein Albumin LDL Cholesterol Direct Urine Creatinine Urine Total Protein Salicylates Acetaminophen Crossmatch 11/07/21 11/07/21 11/07/21 06:30 11:26 12:15 WBC 16.0 H RBC 3.06 L Hgb 8.2 L Hct 26.1 L MCH 27 L RDW 16.2 H Plt Count Lymph % (Auto) [place] % (Auto) Lymph # (Auto) [place] # (Auto) Seg Neutrophils % Seg Neuts % (Manual) 77.0 H Lymphocytes % (Manual) 11.0 L Monocytes % (Manual) Basophils % (Manual) Nucleated RBC % 2.0 H Seg Neutrophils # Seg Neutrophils # Man 12.3 H Lymphocytes # (Manual) Monocytes # (Manual) Eosinophils # (Manual) Basophils # (Manual) PT INR APTT D-Dimer Heparin Anti-Xa Level ABG pH 7.298 L ABG pO2 73.0 L ABG HCO3 33.3 H ABG O2 Saturation 94.4 L ABG Base Excess 5.8 H ABG Hemoglobin 8.2 L Oxyhemoglobin 92.7 L Sodium Potassium Chloride Carbon Dioxide BUN Creatinine Glucose POC Glucose 179 H Hemoglobin A1c Lactic Acid Calcium Phosphorus Magnesium Ferritin AST ALT Alkaline Phosphatase Lactate Dehydrogenase Troponin T C-Reactive Protein Total Protein Albumin LDL Cholesterol Direct Urine Creatinine Urine Total Protein Salicylates Acetaminophen Crossmatch 11/07/21 11/07/21 11/07/21 17:57 22:16 23:49 WBC RBC Hgb Hct MCH RDW Plt Count Lymph % (Auto) [place] % (Auto) Lymph # (Auto) [place] # (Auto) Seg Neutrophils % Seg Neuts % (Manual) Lymphocytes % (Manual) Monocytes % (Manual) Basophils % (Manual) Nucleated RBC % Seg Neutrophils # Seg Neutrophils # Man Lymphocytes # (Manual) Monocytes # (Manual) Eosinophils # (Manual) Basophils # (Manual) PT INR APTT D-Dimer Heparin Anti-Xa Level ABG pH ABG pO2 ABG HCO3 ABG O2 Saturation ABG Base Excess ABG Hemoglobin Oxyhemoglobin Sodium Potassium Chloride Carbon Dioxide BUN Creatinine Glucose POC Glucose 166 H 223 H 190 H Hemoglobin A1c Lactic Acid Calcium Phosphorus Magnesium Ferritin AST ALT Alkaline Phosphatase Lactate Dehydrogenase Troponin T C-Reactive Protein Total Protein Albumin LDL Cholesterol Direct Urine Creatinine Urine Total Protein Salicylates Acetaminophen Crossmatch 11/08/21 11/08/21 11/08/21 04:20 04:20 06:16 WBC 22.1 H RBC 3.01 L Hgb 8.1 L Hct 25.6 L MCH 27 L RDW 15.4 H Plt Count Lymph % (Auto) [place] % (Auto) Lymph # (Auto) [place] # (Auto) Seg Neutrophils % Seg Neuts % (Manual) Lymphocytes % (Manual) Monocytes % (Manual) Basophils % (Manual) Nucleated RBC % Seg Neutrophils # Seg Neutrophils # Man Lymphocytes # (Manual) Monocytes # (Manual) Eosinophils # (Manual) Basophils # (Manual) PT INR APTT D-Dimer Heparin Anti-Xa Level ABG pH ABG pO2 ABG HCO3 ABG O2 Saturation ABG Base Excess ABG Hemoglobin Oxyhemoglobin Sodium 151 H Potassium 3.1 L D Chloride 107.3 H Carbon Dioxide 31 H BUN 82 H Creatinine 1.8 H Glucose 232 H POC Glucose 198 H Hemoglobin A1c Lactic Acid Calcium 8.1 L Phosphorus Magnesium Ferritin AST ALT Alkaline Phosphatase Lactate Dehydrogenase Troponin T C-Reactive Protein Total Protein Albumin LDL Cholesterol Direct Urine Creatinine Urine Total Protein Salicylates Acetaminophen Crossmatch 11/08/21 11/08/21 11/08/21 11:38 12:00 18:29 WBC RBC Hgb Hct MCH RDW Plt Count Lymph % (Auto) [place] % (Auto) Lymph # (Auto) [place] # (Auto) Seg Neutrophils % Seg Neuts % (Manual) Lymphocytes % (Manual) Monocytes % (Manual) Basophils % (Manual) Nucleated RBC % Seg Neutrophils # Seg Neutrophils # Man Lymphocytes # (Manual) Monocytes # (Manual) Eosinophils # (Manual) Basophils # (Manual) PT INR APTT D-Dimer Heparin Anti-Xa Level ABG pH ABG pO2 ABG HCO3 ABG O2 Saturation ABG Base Excess ABG Hemoglobin Oxyhemoglobin Sodium Potassium 3.0 L Chloride Carbon Dioxide BUN Creatinine Glucose POC Glucose 190 H 211 H Hemoglobin A1c Lactic Acid Calcium Phosphorus Magnesium Ferritin AST ALT Alkaline Phosphatase Lactate Dehydrogenase Troponin T C-Reactive Protein Total Protein Albumin LDL Cholesterol Direct Urine Creatinine Urine Total Protein Salicylates Acetaminophen Crossmatch 11/08/21 11/08/21 11/09/21 21:34 21:40 00:36 WBC RBC Hgb Hct MCH RDW Plt Count Lymph % (Auto) [place] % (Auto) Lymph # (Auto) [place] # (Auto) Seg Neutrophils % Seg Neuts % (Manual) Lymphocytes % (Manual) Monocytes % (Manual) Basophils % (Manual) Nucleated RBC % Seg Neutrophils # Seg Neutrophils # Man Lymphocytes # (Manual) Monocytes # (Manual) Eosinophils # (Manual) Basophils # (Manual) PT INR APTT D-Dimer Heparin Anti-Xa Level ABG pH ABG pO2 ABG HCO3 ABG O2 Saturation ABG Base Excess ABG Hemoglobin Oxyhemoglobin Sodium 148 H Potassium 2.8 L* Chloride Carbon Dioxide 31 H BUN 68 H Creatinine 1.5 H Glucose 191 H POC Glucose 194 H 140 H Hemoglobin A1c Lactic Acid Calcium 8.2 L Phosphorus Magnesium Ferritin AST ALT Alkaline Phosphatase Lactate Dehydrogenase Troponin T C-Reactive Protein Total Protein Albumin LDL Cholesterol Direct Urine Creatinine Urine Total Protein Salicylates Acetaminophen Crossmatch 11/09/21 11/09/21 11/09/21 04:51 04:51 04:51 WBC 27.6 H RBC 3.18 L Hgb 8.4 L Hct 26.6 L MCH 27 L RDW 15.3 H Plt Count Lymph % (Auto) [place] % (Auto) Lymph # (Auto) [place] # (Auto) Seg Neutrophils % Seg Neuts % (Manual) Lymphocytes % (Manual) Monocytes % (Manual) Basophils % (Manual) Nucleated RBC % Seg Neutrophils # Seg Neutrophils # Man Lymphocytes # (Manual) Monocytes # (Manual) Eosinophils # (Manual) Basophils # (Manual) PT INR APTT D-Dimer Heparin Anti-Xa Level 0.18 L ABG pH ABG pO2 ABG HCO3 ABG O2 Saturation ABG Base Excess ABG Hemoglobin Oxyhemoglobin Sodium 148 H Potassium 2.7 L* Chloride Carbon Dioxide BUN 59 H Creatinine 1.4 H Glucose 143 H POC Glucose Hemoglobin A1c Lactic Acid Calcium 8.3 L Phosphorus Magnesium Ferritin AST ALT Alkaline Phosphatase Lactate Dehydrogenase Troponin T C-Reactive Protein Total Protein Albumin LDL Cholesterol Direct Urine Creatinine Urine Total Protein Salicylates Acetaminophen Crossmatch 11/09/21 11/09/21 11/09/21 05:52 08:45 11:00 WBC RBC Hgb Hct MCH RDW Plt Count Lymph % (Auto) [place] % (Auto) Lymph # (Auto) [place] # (Auto) Seg Neutrophils % Seg Neuts % (Manual) Lymphocytes % (Manual) Monocytes % (Manual) Basophils % (Manual) Nucleated RBC % Seg Neutrophils # Seg Neutrophils # Man Lymphocytes # (Manual) Monocytes # (Manual) Eosinophils # (Manual) Basophils # (Manual) PT INR APTT D-Dimer Heparin Anti-Xa Level ABG pH ABG pO2 73.2 L ABG HCO3 33.8 H ABG O2 Saturation ABG Base Excess 8.7 H ABG Hemoglobin 8.5 L Oxyhemoglobin 94.1 L Sodium Potassium Chloride Carbon Dioxide BUN Creatinine Glucose POC Glucose 166 H 136 H Hemoglobin A1c Lactic Acid Calcium Phosphorus Magnesium Ferritin AST ALT Alkaline Phosphatase Lactate Dehydrogenase Troponin T C-Reactive Protein Total Protein Albumin LDL Cholesterol Direct Urine Creatinine Urine Total Protein Salicylates Acetaminophen Crossmatch 11/09/21 11/09/21 11/09/21 15:48 16:10 20:31 WBC RBC Hgb Hct MCH RDW Plt Count Lymph % (Auto) [place] % (Auto) Lymph # (Auto) [place] # (Auto) Seg Neutrophils % Seg Neuts % (Manual) Lymphocytes % (Manual) Monocytes % (Manual) Basophils % (Manual) Nucleated RBC % Seg Neutrophils # Seg Neutrophils # Man Lymphocytes # (Manual) Monocytes # (Manual) Eosinophils # (Manual) Basophils # (Manual) PT INR APTT D-Dimer Heparin Anti-Xa Level ABG pH ABG pO2 ABG HCO3 ABG O2 Saturation ABG Base Excess ABG Hemoglobin Oxyhemoglobin Sodium Potassium 2.8 L* Chloride Carbon Dioxide 31 H BUN 53 H Creatinine 1.3 H Glucose 208 H POC Glucose 203 H 166 H Hemoglobin A1c Lactic Acid Calcium 7.9 L Phosphorus Magnesium Ferritin AST ALT Alkaline Phosphatase Lactate Dehydrogenase Troponin T C-Reactive Protein Total Protein Albumin LDL Cholesterol Direct Urine Creatinine Urine Total Protein Salicylates Acetaminophen Crossmatch 11/09/21 11/09/21 11/09/21 21:30 23:16 Unknown WBC RBC Hgb Hct MCH RDW Plt Count Lymph % (Auto) [place] % (Auto) Lymph # (Auto) [place] # (Auto) Seg Neutrophils % Seg Neuts % (Manual) Lymphocytes % (Manual) Monocytes % (Manual) Basophils % (Manual) Nucleated RBC % Seg Neutrophils # Seg Neutrophils # Man Lymphocytes # (Manual) Monocytes # (Manual) Eosinophils # (Manual) Basophils # (Manual) PT INR APTT D-Dimer Heparin Anti-Xa Level 0.24 L ABG pH ABG pO2 ABG HCO3 ABG O2 Saturation ABG Base Excess ABG Hemoglobin Oxyhemoglobin Sodium Potassium Chloride Carbon Dioxide BUN 52 H Creatinine 1.4 H Glucose 185 H POC Glucose 172 H Hemoglobin A1c Lactic Acid Calcium 7.8 L Phosphorus Magnesium Ferritin AST ALT Alkaline Phosphatase Lactate Dehydrogenase Troponin T C-Reactive Protein Total Protein Albumin LDL Cholesterol Direct Urine Creatinine Urine Total Protein Salicylates Acetaminophen Crossmatch 11/10/21 11/10/21 11/10/21 02:00 04:17 04:17 WBC 24.5 H RBC 2.75 L Hgb 7.5 L Hct 22.9 L MCH 27 L RDW Plt Count Lymph % (Auto) [place] % (Auto) Lymph # (Auto) [place] # (Auto) Seg Neutrophils % Seg Neuts % (Manual) Lymphocytes % (Manual) Monocytes % (Manual) Basophils % (Manual) Nucleated RBC % Seg Neutrophils # Seg Neutrophils # Man Lymphocytes # (Manual) Monocytes # (Manual) Eosinophils # (Manual) Basophils # (Manual) PT INR APTT D-Dimer Heparin Anti-Xa Level 0.26 L ABG pH ABG pO2 ABG HCO3 ABG O2 Saturation ABG Base Excess ABG Hemoglobin Oxyhemoglobin Sodium Potassium 2.9 L* Chloride Carbon Dioxide 35 H BUN 48 H Creatinine Glucose 212 H POC Glucose Hemoglobin A1c Lactic Acid Calcium 8.1 L Phosphorus Magnesium Ferritin AST ALT Alkaline Phosphatase Lactate Dehydrogenase Troponin T C-Reactive Protein Total Protein Albumin LDL Cholesterol Direct Urine Creatinine Urine Total Protein Salicylates Acetaminophen Crossmatch 11/10/21 11/10/21 11/10/21 05:01 08:39 11:03 WBC RBC Hgb Hct MCH RDW Plt Count Lymph % (Auto) [place] % (Auto) Lymph # (Auto) [place] # (Auto) Seg Neutrophils % Seg Neuts % (Manual) Lymphocytes % (Manual) Monocytes % (Manual) Basophils % (Manual) Nucleated RBC % Seg Neutrophils # Seg Neutrophils # Man Lymphocytes # (Manual) Monocytes # (Manual) Eosinophils # (Manual) Basophils # (Manual) PT INR APTT D-Dimer Heparin Anti-Xa Level 0.12 L ABG pH ABG pO2 ABG HCO3 ABG O2 Saturation ABG Base Excess ABG Hemoglobin Oxyhemoglobin Sodium Potassium Chloride Carbon Dioxide BUN Creatinine Glucose POC Glucose 203 H 152 H Hemoglobin A1c Lactic Acid Calcium Phosphorus Magnesium Ferritin AST ALT Alkaline Phosphatase Lactate Dehydrogenase Troponin T C-Reactive Protein Total Protein Albumin LDL Cholesterol Direct Urine Creatinine Urine Total Protein Salicylates Acetaminophen Crossmatch 11/10/21 11/10/21 11/10/21 12:45 15:43 21:05 WBC RBC Hgb Hct MCH RDW Plt Count Lymph % (Auto) [place] % (Auto) Lymph # (Auto) [place] # (Auto) Seg Neutrophils % Seg Neuts % (Manual) Lymphocytes % (Manual) Monocytes % (Manual) Basophils % (Manual) Nucleated RBC % Seg Neutrophils # Seg Neutrophils # Man Lymphocytes # (Manual) Monocytes # (Manual) Eosinophils # (Manual) Basophils # (Manual) PT INR APTT D-Dimer Heparin Anti-Xa Level ABG pH ABG pO2 ABG HCO3 ABG O2 Saturation ABG Base Excess ABG Hemoglobin Oxyhemoglobin Sodium 146 H Potassium 3.3 L Chloride Carbon Dioxide 31 H BUN 43 H Creatinine Glucose 155 H POC Glucose 139 H 139 H Hemoglobin A1c Lactic Acid Calcium 8.3 L Phosphorus Magnesium Ferritin AST ALT Alkaline Phosphatase Lactate Dehydrogenase Troponin T C-Reactive Protein Total Protein Albumin LDL Cholesterol Direct Urine Creatinine Urine Total Protein Salicylates Acetaminophen Crossmatch 11/10/21 11/11/21 11/11/21 23:25 03:49 03:49 WBC 22.1 H RBC 2.69 L Hgb 7.2 L Hct 22.7 L MCH 27 L RDW Plt Count Lymph % (Auto) [place] % (Auto) Lymph # (Auto) [place] # (Auto) Seg Neutrophils % Seg Neuts % (Manual) Lymphocytes % (Manual) Monocytes % (Manual) Basophils % (Manual) Nucleated RBC % Seg Neutrophils # Seg Neutrophils # Man Lymphocytes # (Manual) Monocytes # (Manual) Eosinophils # (Manual) Basophils # (Manual) PT INR APTT D-Dimer Heparin Anti-Xa Level ABG pH ABG pO2 ABG HCO3 ABG O2 Saturation ABG Base Excess ABG Hemoglobin Oxyhemoglobin Sodium Potassium Chloride Carbon Dioxide 32 H BUN 44 H Creatinine 1.3 H Glucose 173 H POC Glucose 146 H Hemoglobin A1c Lactic Acid Calcium Phosphorus Magnesium Ferritin AST ALT Alkaline Phosphatase Lactate Dehydrogenase Troponin T C-Reactive Protein Total Protein Albumin LDL Cholesterol Direct Urine Creatinine Urine Total Protein Salicylates Acetaminophen Crossmatch 11/11/21 11/11/21 11/11/21 05:03 10:50 11:32 WBC RBC Hgb Hct MCH RDW Plt Count Lymph % (Auto) [place] % (Auto) Lymph # (Auto) [place] # (Auto) Seg Neutrophils % Seg Neuts % (Manual) Lymphocytes % (Manual) Monocytes % (Manual) Basophils % (Manual) Nucleated RBC % Seg Neutrophils # Seg Neutrophils # Man Lymphocytes # (Manual) Monocytes # (Manual) Eosinophils # (Manual) Basophils # (Manual) PT INR APTT D-Dimer Heparin Anti-Xa Level ABG pH ABG pO2 ABG HCO3 ABG O2 Saturation ABG Base Excess ABG Hemoglobin Oxyhemoglobin Sodium Potassium Chloride Carbon Dioxide BUN Creatinine Glucose POC Glucose 152 H 129 H 133 H Hemoglobin A1c Lactic Acid Calcium Phosphorus Magnesium Ferritin AST ALT Alkaline Phosphatase Lactate Dehydrogenase Troponin T C-Reactive Protein Total Protein Albumin LDL Cholesterol Direct Urine Creatinine Urine Total Protein Salicylates Acetaminophen Crossmatch 11/11/21 11/11/21 11/11/21 13:53 16:31 17:13 WBC RBC Hgb Hct MCH RDW Plt Count Lymph % (Auto) [place] % (Auto) Lymph # (Auto) [place] # (Auto) Seg Neutrophils % Seg Neuts % (Manual) Lymphocytes % (Manual) Monocytes % (Manual) Basophils % (Manual) Nucleated RBC % Seg Neutrophils # Seg Neutrophils # Man Lymphocytes # (Manual) Monocytes # (Manual) Eosinophils # (Manual) Basophils # (Manual) PT INR APTT D-Dimer Heparin Anti-Xa Level ABG pH 7.475 H ABG pO2 64.1 L ABG HCO3 32.4 H ABG O2 Saturation ABG Base Excess 8.0 H ABG Hemoglobin 7.6 L Oxyhemoglobin 94.0 L Sodium Potassium Chloride Carbon Dioxide BUN Creatinine Glucose POC Glucose 116 H 125 H Hemoglobin A1c Lactic Acid Calcium Phosphorus Magnesium Ferritin AST ALT Alkaline Phosphatase Lactate Dehydrogenase Troponin T C-Reactive Protein Total Protein Albumin LDL Cholesterol Direct Urine Creatinine Urine Total Protein Salicylates Acetaminophen Crossmatch 11/11/21 11/11/21 11/12/21 20:40 23:35 03:30 WBC 17.7 H RBC 2.37 L Hgb 6.3 L Hct 20.0 L MCH 27 L RDW 15.5 H Plt Count Lymph % (Auto) [place] % (Auto) Lymph # (Auto) [place] # (Auto) Seg Neutrophils % Seg Neuts % (Manual) Lymphocytes % (Manual) Monocytes % (Manual) Basophils % (Manual) Nucleated RBC % Seg Neutrophils # Seg Neutrophils # Man Lymphocytes # (Manual) Monocytes # (Manual) Eosinophils # (Manual) Basophils # (Manual) PT INR APTT D-Dimer Heparin Anti-Xa Level 0.26 L ABG pH ABG pO2 ABG HCO3 ABG O2 Saturation ABG Base Excess ABG Hemoglobin Oxyhemoglobin Sodium Potassium Chloride Carbon Dioxide BUN Creatinine Glucose POC Glucose 118 H Hemoglobin A1c Lactic Acid Calcium Phosphorus Magnesium Ferritin AST ALT Alkaline Phosphatase Lactate Dehydrogenase Troponin T C-Reactive Protein Total Protein Albumin LDL Cholesterol Direct Urine Creatinine Urine Total Protein Salicylates Acetaminophen Crossmatch 11/12/21 11/12/21 11/12/21 03:30 04:15 11:53 WBC RBC Hgb Hct MCH RDW Plt Count Lymph % (Auto) [place] % (Auto) Lymph # (Auto) [place] # (Auto) Seg Neutrophils % Seg Neuts % (Manual) Lymphocytes % (Manual) Monocytes % (Manual) Basophils % (Manual) Nucleated RBC % Seg Neutrophils # Seg Neutrophils # Man Lymphocytes # (Manual) Monocytes # (Manual) Eosinophils # (Manual) Basophils # (Manual) PT INR APTT D-Dimer Heparin Anti-Xa Level ABG pH ABG pO2 ABG HCO3 ABG O2 Saturation ABG Base Excess ABG Hemoglobin Oxyhemoglobin Sodium Potassium Chloride Carbon Dioxide 33 H BUN 38 H Creatinine 1.3 H Glucose 102 H POC Glucose 62 L Hemoglobin A1c Lactic Acid Calcium 8.2 L Phosphorus Magnesium Ferritin AST ALT Alkaline Phosphatase Lactate Dehydrogenase Troponin T C-Reactive Protein Total Protein Albumin LDL Cholesterol Direct Urine Creatinine Urine Total Protein Salicylates Acetaminophen Crossmatch See Detail 11/12/21 11/12/21 11/12/21 17:20 19:14 23:11 WBC RBC Hgb 6.2 L Hct 19.5 L* MCH RDW Plt Count Lymph % (Auto) [place] % (Auto) Lymph # (Auto) [place] # (Auto) Seg Neutrophils % Seg Neuts % (Manual) Lymphocytes % (Manual) Monocytes % (Manual) Basophils % (Manual) Nucleated RBC % Seg Neutrophils # Seg Neutrophils # Man Lymphocytes # (Manual) Monocytes # (Manual) Eosinophils # (Manual) Basophils # (Manual) PT INR APTT D-Dimer Heparin Anti-Xa Level ABG pH ABG pO2 ABG HCO3 ABG O2 Saturation ABG Base Excess ABG Hemoglobin Oxyhemoglobin Sodium Potassium Chloride Carbon Dioxide BUN Creatinine Glucose POC Glucose 115 H 131 H Hemoglobin A1c Lactic Acid Calcium Phosphorus Magnesium Ferritin AST ALT Alkaline Phosphatase Lactate Dehydrogenase Troponin T C-Reactive Protein Total Protein Albumin LDL Cholesterol Direct Urine Creatinine Urine Total Protein Salicylates Acetaminophen Crossmatch 11/13/21 11/13/21 11/13/21 00:13 04:17 04:17 WBC 23.8 H RBC 2.84 L Hgb 7.4 L 7.8 L Hct 23.3 L 24.9 L MCH 27 L RDW 15.4 H Plt Count Lymph % (Auto) [place] % (Auto) Lymph # (Auto) [place] # (Auto) Seg Neutrophils % Seg Neuts % (Manual) Lymphocytes % (Manual) Monocytes % (Manual) Basophils % (Manual) Nucleated RBC % Seg Neutrophils # Seg Neutrophils # Man Lymphocytes # (Manual) Monocytes # (Manual) Eosinophils # (Manual) Basophils # (Manual) PT INR APTT D-Dimer Heparin Anti-Xa Level ABG pH ABG pO2 ABG HCO3 ABG O2 Saturation ABG Base Excess ABG Hemoglobin Oxyhemoglobin Sodium 146 H Potassium Chloride Carbon Dioxide BUN 44 H Creatinine 1.6 H Glucose 144 H POC Glucose Hemoglobin A1c Lactic Acid Calcium 7.9 L Phosphorus 5.10 H D Magnesium Ferritin AST ALT Alkaline Phosphatase Lactate Dehydrogenase Troponin T C-Reactive Protein Total Protein Albumin LDL Cholesterol Direct Urine Creatinine Urine Total Protein Salicylates Acetaminophen Crossmatch 11/13/21 11/13/21 11/13/21 05:52 10:54 15:57 WBC RBC Hgb Hct MCH RDW Plt Count Lymph % (Auto) [place] % (Auto) Lymph # (Auto) [place] # (Auto) Seg Neutrophils % Seg Neuts % (Manual) Lymphocytes % (Manual) Monocytes % (Manual) Basophils % (Manual) Nucleated RBC % Seg Neutrophils # Seg Neutrophils # Man Lymphocytes # (Manual) Monocytes # (Manual) Eosinophils # (Manual) Basophils # (Manual) PT INR APTT D-Dimer Heparin Anti-Xa Level ABG pH ABG pO2 ABG HCO3 ABG O2 Saturation ABG Base Excess ABG Hemoglobin Oxyhemoglobin Sodium Potassium Chloride Carbon Dioxide BUN Creatinine Glucose POC Glucose 123 H 147 H 207 H Hemoglobin A1c Lactic Acid Calcium Phosphorus Magnesium Ferritin AST ALT Alkaline Phosphatase Lactate Dehydrogenase Troponin T C-Reactive Protein Total Protein Albumin LDL Cholesterol Direct Urine Creatinine Urine Total Protein Salicylates Acetaminophen Crossmatch 11/13/21 11/13/21 11/14/21 16:01 23:18 04:55 WBC 23.9 H RBC 2.86 L Hgb 6.5 L 8.3 L Hct 20.3 L 24.5 L MCH RDW Plt Count Lymph % (Auto) [place] % (Auto) Lymph # (Auto) [place] # (Auto) Seg Neutrophils % Seg Neuts % (Manual) Lymphocytes % (Manual) Monocytes % (Manual) Basophils % (Manual) Nucleated RBC % Seg Neutrophils # Seg Neutrophils # Man Lymphocytes # (Manual) Monocytes # (Manual) Eosinophils # (Manual) Basophils # (Manual) PT INR APTT D-Dimer Heparin Anti-Xa Level ABG pH ABG pO2 ABG HCO3 ABG O2 Saturation ABG Base Excess ABG Hemoglobin Oxyhemoglobin Sodium Potassium Chloride Carbon Dioxide BUN Creatinine Glucose POC Glucose 209 H Hemoglobin A1c Lactic Acid Calcium Phosphorus Magnesium Ferritin AST ALT Alkaline Phosphatase Lactate Dehydrogenase Troponin T C-Reactive Protein Total Protein Albumin LDL Cholesterol Direct Urine Creatinine Urine Total Protein Salicylates Acetaminophen Crossmatch 11/14/21 11/14/21 11/14/21 04:55 05:09 11:35 WBC RBC Hgb Hct MCH RDW Plt Count Lymph % (Auto) [place] % (Auto) Lymph # (Auto) [place] # (Auto) Seg Neutrophils % Seg Neuts % (Manual) Lymphocytes % (Manual) Monocytes % (Manual) Basophils % (Manual) Nucleated RBC % Seg Neutrophils # Seg Neutrophils # Man Lymphocytes # (Manual) Monocytes # (Manual) Eosinophils # (Manual) Basophils # (Manual) PT INR APTT D-Dimer Heparin Anti-Xa Level ABG pH ABG pO2 ABG HCO3 ABG O2 Saturation ABG Base Excess ABG Hemoglobin Oxyhemoglobin Sodium 148 H Potassium Chloride 109.0 H Carbon Dioxide BUN 42 H Creatinine 1.6 H Glucose 184 H POC Glucose 169 H 154 H Hemoglobin A1c Lactic Acid Calcium 8.0 L Phosphorus Magnesium Ferritin AST ALT Alkaline Phosphatase Lactate Dehydrogenase Troponin T C-Reactive Protein Total Protein Albumin LDL Cholesterol Direct Urine Creatinine Urine Total Protein Salicylates Acetaminophen Crossmatch 11/14/21 11/14/21 11/15/21 16:57 23:11 04:36 WBC RBC Hgb Hct MCH RDW Plt Count Lymph % (Auto) [place] % (Auto) Lymph # (Auto) [place] # (Auto) Seg Neutrophils % Seg Neuts % (Manual) Lymphocytes % (Manual) Monocytes % (Manual) Basophils % (Manual) Nucleated RBC % Seg Neutrophils # Seg Neutrophils # Man Lymphocytes # (Manual) Monocytes # (Manual) Eosinophils # (Manual) Basophils # (Manual) PT INR APTT D-Dimer Heparin Anti-Xa Level ABG pH ABG pO2 ABG HCO3 ABG O2 Saturation ABG Base Excess ABG Hemoglobin Oxyhemoglobin Sodium 151 H Potassium Chloride 111.2 H Carbon Dioxide BUN 36 H Creatinine 1.3 H Glucose 136 H POC Glucose 124 H 118 H Hemoglobin A1c Lactic Acid Calcium 8.1 L Phosphorus Magnesium Ferritin AST ALT Alkaline Phosphatase Lactate Dehydrogenase Troponin T C-Reactive Protein Total Protein Albumin LDL Cholesterol Direct Urine Creatinine Urine Total Protein Salicylates Acetaminophen Crossmatch 11/15/21 11/15/21 11/16/21 11:18 21:49 00:15 WBC RBC Hgb Hct MCH RDW Plt Count Lymph % (Auto) [place] % (Auto) Lymph # (Auto) [place] # (Auto) Seg Neutrophils % Seg Neuts % (Manual) Lymphocytes % (Manual) Monocytes % (Manual) Basophils % (Manual) Nucleated RBC % Seg Neutrophils # Seg Neutrophils # Man Lymphocytes # (Manual) Monocytes # (Manual) Eosinophils # (Manual) Basophils # (Manual) PT INR APTT D-Dimer Heparin Anti-Xa Level ABG pH ABG pO2 ABG HCO3 ABG O2 Saturation ABG Base Excess ABG Hemoglobin Oxyhemoglobin Sodium Potassium Chloride Carbon Dioxide BUN Creatinine Glucose POC Glucose 154 H 154 H 146 H Hemoglobin A1c Lactic Acid Calcium Phosphorus Magnesium Ferritin AST ALT Alkaline Phosphatase Lactate Dehydrogenase Troponin T C-Reactive Protein Total Protein Albumin LDL Cholesterol Direct Urine Creatinine Urine Total Protein Salicylates Acetaminophen Crossmatch 11/16/21 11/16/21 11/16/21 05:11 05:11 05:37 WBC 18.2 H RBC 2.92 L Hgb 8.3 L Hct 26.1 L MCH RDW 15.8 H Plt Count Lymph % (Auto) 6.3 L [place] % (Auto) 10.2 H Lymph # (Auto) [place] # (Auto) 1.9 H Seg Neutrophils % 81.7 H Seg Neuts % (Manual) Lymphocytes % (Manual) Monocytes % (Manual) Basophils % (Manual) Nucleated RBC % Seg Neutrophils # 14.9 H Seg Neutrophils # Man Lymphocytes # (Manual) Monocytes # (Manual) Eosinophils # (Manual) Basophils # (Manual) PT INR APTT D-Dimer Heparin Anti-Xa Level ABG pH ABG pO2 ABG HCO3 ABG O2 Saturation ABG Base Excess ABG Hemoglobin Oxyhemoglobin Sodium 146 H Potassium Chloride 108.0 H Carbon Dioxide BUN 25 H Creatinine Glucose 123 H POC Glucose 109 H Hemoglobin A1c Lactic Acid Calcium 7.8 L Phosphorus Magnesium Ferritin AST ALT Alkaline Phosphatase Lactate Dehydrogenase Troponin T C-Reactive Protein Total Protein Albumin LDL Cholesterol Direct Urine Creatinine Urine Total Protein Salicylates Acetaminophen Crossmatch 11/16/21 11/16/21 11/17/21 11:22 23:55 04:33 WBC RBC Hgb Hct MCH RDW Plt Count Lymph % (Auto) [place] % (Auto) Lymph # (Auto) [place] # (Auto) Seg Neutrophils % Seg Neuts % (Manual) Lymphocytes % (Manual) Monocytes % (Manual) Basophils % (Manual) Nucleated RBC % Seg Neutrophils # Seg Neutrophils # Man Lymphocytes # (Manual) Monocytes # (Manual) Eosinophils # (Manual) Basophils # (Manual) PT INR APTT D-Dimer Heparin Anti-Xa Level ABG pH ABG pO2 ABG HCO3 ABG O2 Saturation ABG Base Excess ABG Hemoglobin Oxyhemoglobin Sodium Potassium Chloride Carbon Dioxide BUN 20 H Creatinine Glucose POC Glucose 136 H 113 H Hemoglobin A1c Lactic Acid Calcium 7.5 L Phosphorus Magnesium Ferritin AST ALT Alkaline Phosphatase Lactate Dehydrogenase Troponin T C-Reactive Protein Total Protein Albumin LDL Cholesterol Direct Urine Creatinine Urine Total Protein Salicylates Acetaminophen Crossmatch 11/17/21 11/18/21 11/18/21 23:22 04:53 04:53 WBC 13.0 H RBC 2.99 L Hgb 8.5 L Hct 26.4 L MCH RDW Plt Count Lymph % (Auto) 9.5 L [place] % (Auto) 9.8 H Lymph # (Auto) [place] # (Auto) 1.3 H Seg Neutrophils % 78.3 H Seg Neuts % (Manual) Lymphocytes % (Manual) Monocytes % (Manual) Basophils % (Manual) Nucleated RBC % Seg Neutrophils # 10.2 H Seg Neutrophils # Man Lymphocytes # (Manual) Monocytes # (Manual) Eosinophils # (Manual) Basophils # (Manual) PT INR APTT D-Dimer Heparin Anti-Xa Level ABG pH ABG pO2 ABG HCO3 ABG O2 Saturation ABG Base Excess ABG Hemoglobin Oxyhemoglobin Sodium Potassium Chloride Carbon Dioxide BUN 18 H Creatinine Glucose 106 H POC Glucose 112 H Hemoglobin A1c Lactic Acid Calcium 8.1 L Phosphorus Magnesium Ferritin AST ALT Alkaline Phosphatase Lactate Dehydrogenase Troponin T C-Reactive Protein Total Protein Albumin LDL Cholesterol Direct Urine Creatinine Urine Total Protein Salicylates Acetaminophen Crossmatch 11/18/21 11/18/21 11/19/21 11:35 17:42 14:38 WBC RBC Hgb Hct MCH RDW Plt Count Lymph % (Auto) [place] % (Auto) Lymph # (Auto) [place] # (Auto) Seg Neutrophils % Seg Neuts % (Manual) Lymphocytes % (Manual) Monocytes % (Manual) Basophils % (Manual) Nucleated RBC % Seg Neutrophils # Seg Neutrophils # Man Lymphocytes # (Manual) Monocytes # (Manual) Eosinophils # (Manual) Basophils # (Manual) PT INR APTT D-Dimer Heparin Anti-Xa Level ABG pH ABG pO2 ABG HCO3 ABG O2 Saturation ABG Base Excess ABG Hemoglobin Oxyhemoglobin Sodium Potassium Chloride 97.5 L Carbon Dioxide 31 H BUN Creatinine Glucose 146 H POC Glucose 143 H 132 H Hemoglobin A1c Lactic Acid Calcium Phosphorus Magnesium 1.60 L Ferritin AST ALT Alkaline Phosphatase Lactate Dehydrogenase Troponin T C-Reactive Protein Total Protein Albumin LDL Cholesterol Direct Urine Creatinine Urine Total Protein Salicylates Acetaminophen Crossmatch 11/19/21 11/19/21 11/20/21 16:24 23:58 07:42 WBC RBC 3.01 L Hgb 8.6 L Hct 26.7 L MCH RDW 15.4 H Plt Count Lymph % (Auto) [place] % (Auto) Lymph # (Auto) [place] # (Auto) Seg Neutrophils % Seg Neuts % (Manual) Lymphocytes % (Manual) Monocytes % (Manual) Basophils % (Manual) Nucleated RBC % Seg Neutrophils # Seg Neutrophils # Man Lymphocytes # (Manual) Monocytes # (Manual) Eosinophils # (Manual) Basophils # (Manual) PT INR APTT D-Dimer Heparin Anti-Xa Level ABG pH ABG pO2 ABG HCO3 ABG O2 Saturation ABG Base Excess ABG Hemoglobin Oxyhemoglobin Sodium Potassium Chloride Carbon Dioxide BUN Creatinine Glucose POC Glucose 129 H 125 H Hemoglobin A1c Lactic Acid Calcium Phosphorus Magnesium Ferritin AST ALT Alkaline Phosphatase Lactate Dehydrogenase Troponin T C-Reactive Protein Total Protein Albumin LDL Cholesterol Direct Urine Creatinine Urine Total Protein Salicylates Acetaminophen Crossmatch 11/20/21 11/20/21 11/20/21 07:42 11:25 22:59 WBC RBC Hgb Hct MCH RDW Plt Count Lymph % (Auto) [place] % (Auto) Lymph # (Auto) [place] # (Auto) Seg Neutrophils % Seg Neuts % (Manual) Lymphocytes % (Manual) Monocytes % (Manual) Basophils % (Manual) Nucleated RBC % Seg Neutrophils # Seg Neutrophils # Man Lymphocytes # (Manual) Monocytes # (Manual) Eosinophils # (Manual) Basophils # (Manual) PT INR APTT D-Dimer Heparin Anti-Xa Level ABG pH ABG pO2 ABG HCO3 ABG O2 Saturation ABG Base Excess ABG Hemoglobin Oxyhemoglobin Sodium Potassium Chloride Carbon Dioxide 31 H BUN Creatinine Glucose POC Glucose 116 H 113 H Hemoglobin A1c Lactic Acid Calcium Phosphorus Magnesium Ferritin AST ALT Alkaline Phosphatase Lactate Dehydrogenase Troponin T C-Reactive Protein Total Protein Albumin LDL Cholesterol Direct Urine Creatinine Urine Total Protein Salicylates Acetaminophen Crossmatch 11/21/21 11/22/21 11/22/21 10:50 05:10 16:12 WBC RBC Hgb Hct MCH RDW Plt Count Lymph % (Auto) [place] % (Auto) Lymph # (Auto) [place] # (Auto) Seg Neutrophils % Seg Neuts % (Manual) Lymphocytes % (Manual) Monocytes % (Manual) Basophils % (Manual) Nucleated RBC % Seg Neutrophils # Seg Neutrophils # Man Lymphocytes # (Manual) Monocytes # (Manual) Eosinophils # (Manual) Basophils # (Manual) PT INR APTT D-Dimer Heparin Anti-Xa Level ABG pH ABG pO2 ABG HCO3 ABG O2 Saturation ABG Base Excess ABG Hemoglobin Oxyhemoglobin Sodium Potassium Chloride Carbon Dioxide 32 H BUN Creatinine Glucose POC Glucose 156 H 110 H Hemoglobin A1c Lactic Acid Calcium 8.1 L Phosphorus Magnesium Ferritin AST ALT Alkaline Phosphatase Lactate Dehydrogenase Troponin T C-Reactive Protein Total Protein Albumin LDL Cholesterol Direct Urine Creatinine Urine Total Protein Salicylates Acetaminophen Crossmatch 11/23/21 11/23/21 11/23/21 07:18 07:18 11:45 WBC RBC 3.23 L Hgb 9.1 L Hct 28.5 L MCH RDW 15.6 H Plt Count Lymph % (Auto) [place] % (Auto) Lymph # (Auto) [place] # (Auto) Seg Neutrophils % Seg Neuts % (Manual) Lymphocytes % (Manual) Monocytes % (Manual) Basophils % (Manual) Nucleated RBC % Seg Neutrophils # Seg Neutrophils # Man Lymphocytes # (Manual) Monocytes # (Manual) Eosinophils # (Manual) Basophils # (Manual) PT INR APTT D-Dimer Heparin Anti-Xa Level ABG pH ABG pO2 ABG HCO3 ABG O2 Saturation ABG Base Excess ABG Hemoglobin Oxyhemoglobin Sodium Potassium 3.3 L Chloride 96.8 L Carbon Dioxide 32 H BUN Creatinine Glucose POC Glucose 140 H Hemoglobin A1c Lactic Acid Calcium Phosphorus Magnesium Ferritin AST ALT Alkaline Phosphatase Lactate Dehydrogenase Troponin T C-Reactive Protein Total Protein Albumin LDL Cholesterol Direct Urine Creatinine Urine Total Protein Salicylates Acetaminophen Crossmatch 11/23/21 11/23/21 11/24/21 16:40 23:45 07:19 WBC RBC 3.12 L Hgb 9.3 L Hct 27.2 L MCH RDW 16.0 H Plt Count Lymph % (Auto) 10.3 L [place] % (Auto) 10.0 H Lymph # (Auto) 1.1 L [place] # (Auto) 1.1 H Seg Neutrophils % 75.2 H Seg Neuts % (Manual) Lymphocytes % (Manual) Monocytes % (Manual) Basophils % (Manual) Nucleated RBC % Seg Neutrophils # 7.9 H Seg Neutrophils # Man Lymphocytes # (Manual) Monocytes # (Manual) Eosinophils # (Manual) Basophils # (Manual) PT INR APTT D-Dimer Heparin Anti-Xa Level ABG pH ABG pO2 ABG HCO3 ABG O2 Saturation ABG Base Excess ABG Hemoglobin Oxyhemoglobin Sodium Potassium Chloride Carbon Dioxide BUN Creatinine Glucose POC Glucose 140 H 138 H Hemoglobin A1c Lactic Acid Calcium Phosphorus Magnesium Ferritin AST ALT Alkaline Phosphatase Lactate Dehydrogenase Troponin T C-Reactive Protein Total Protein Albumin LDL Cholesterol Direct Urine Creatinine Urine Total Protein Salicylates Acetaminophen Crossmatch 11/24/21 11/24/21 11/24/21 07:19 11:49 15:54 WBC RBC Hgb Hct MCH RDW Plt Count Lymph % (Auto) [place] % (Auto) Lymph # (Auto) [place] # (Auto) Seg Neutrophils % Seg Neuts % (Manual) Lymphocytes % (Manual) Monocytes % (Manual) Basophils % (Manual) Nucleated RBC % Seg Neutrophils # Seg Neutrophils # Man Lymphocytes # (Manual) Monocytes # (Manual) Eosinophils # (Manual) Basophils # (Manual) PT INR APTT D-Dimer Heparin Anti-Xa Level ABG pH ABG pO2 ABG HCO3 ABG O2 Saturation ABG Base Excess ABG Hemoglobin Oxyhemoglobin Sodium Potassium 3.2 L Chloride 96.7 L Carbon Dioxide BUN Creatinine Glucose 125 H POC Glucose 118 H 106 H Hemoglobin A1c Lactic Acid Calcium Phosphorus Magnesium Ferritin AST ALT Alkaline Phosphatase Lactate Dehydrogenase Troponin T C-Reactive Protein Total Protein Albumin LDL Cholesterol Direct Urine Creatinine Urine Total Protein Salicylates Acetaminophen Crossmatch 11/25/21 11/25/21 11/25/21 11:49 15:41 20:51 WBC RBC Hgb Hct MCH RDW Plt Count Lymph % (Auto) [place] % (Auto) Lymph # (Auto) [place] # (Auto) Seg Neutrophils % Seg Neuts % (Manual) Lymphocytes % (Manual) Monocytes % (Manual) Basophils % (Manual) Nucleated RBC % Seg Neutrophils # Seg Neutrophils # Man Lymphocytes # (Manual) Monocytes # (Manual) Eosinophils # (Manual) Basophils # (Manual) PT INR APTT D-Dimer Heparin Anti-Xa Level ABG pH ABG pO2 ABG HCO3 ABG O2 Saturation ABG Base Excess ABG Hemoglobin Oxyhemoglobin Sodium Potassium Chloride Carbon Dioxide BUN Creatinine Glucose POC Glucose 119 H 110 H 109 H Hemoglobin A1c Lactic Acid Calcium Phosphorus Magnesium Ferritin AST ALT Alkaline Phosphatase Lactate Dehydrogenase Troponin T C-Reactive Protein Total Protein Albumin LDL Cholesterol Direct Urine Creatinine Urine Total Protein Salicylates Acetaminophen Crossmatch 11/26/21 11/26/21 11/26/21 07:33 11:20 17:03 WBC RBC Hgb Hct MCH RDW Plt Count Lymph % (Auto) [place] % (Auto) Lymph # (Auto) [place] # (Auto) Seg Neutrophils % Seg Neuts % (Manual) Lymphocytes % (Manual) Monocytes % (Manual) Basophils % (Manual) Nucleated RBC % Seg Neutrophils # Seg Neutrophils # Man Lymphocytes # (Manual) Monocytes # (Manual) Eosinophils # (Manual) Basophils # (Manual) PT INR APTT D-Dimer Heparin Anti-Xa Level ABG pH ABG pO2 ABG HCO3 ABG O2 Saturation ABG Base Excess ABG Hemoglobin Oxyhemoglobin Sodium Potassium Chloride Carbon Dioxide BUN Creatinine Glucose POC Glucose 158 H 162 H 144 H Hemoglobin A1c Lactic Acid Calcium Phosphorus Magnesium Ferritin AST ALT Alkaline Phosphatase Lactate Dehydrogenase Troponin T C-Reactive Protein Total Protein Albumin LDL Cholesterol Direct Urine Creatinine Urine Total Protein Salicylates Acetaminophen Crossmatch 11/26/21 11/27/21 11/27/21 21:51 07:44 12:20 WBC RBC Hgb Hct MCH RDW Plt Count Lymph % (Auto) [place] % (Auto) Lymph # (Auto) [place] # (Auto) Seg Neutrophils % Seg Neuts % (Manual) Lymphocytes % (Manual) Monocytes % (Manual) Basophils % (Manual) Nucleated RBC % Seg Neutrophils # Seg Neutrophils # Man Lymphocytes # (Manual) Monocytes # (Manual) Eosinophils # (Manual) Basophils # (Manual) PT INR APTT D-Dimer Heparin Anti-Xa Level ABG pH ABG pO2 ABG HCO3 ABG O2 Saturation ABG Base Excess ABG Hemoglobin Oxyhemoglobin Sodium Potassium Chloride Carbon Dioxide BUN Creatinine Glucose POC Glucose 132 H 129 H 128 H Hemoglobin A1c Lactic Acid Calcium Phosphorus Magnesium Ferritin AST ALT Alkaline Phosphatase Lactate Dehydrogenase Troponin T C-Reactive Protein Total Protein Albumin LDL Cholesterol Direct Urine Creatinine Urine Total Protein Salicylates Acetaminophen Crossmatch 11/27/21 11/27/21 11/28/21 16:44 21:35 07:54 WBC RBC Hgb Hct MCH RDW Plt Count Lymph % (Auto) [place] % (Auto) Lymph # (Auto) [place] # (Auto) Seg Neutrophils % Seg Neuts % (Manual) Lymphocytes % (Manual) Monocytes % (Manual) Basophils % (Manual) Nucleated RBC % Seg Neutrophils # Seg Neutrophils # Man Lymphocytes # (Manual) Monocytes # (Manual) Eosinophils # (Manual) Basophils # (Manual) PT INR APTT D-Dimer Heparin Anti-Xa Level ABG pH ABG pO2 ABG HCO3 ABG O2 Saturation ABG Base Excess ABG Hemoglobin Oxyhemoglobin Sodium Potassium Chloride Carbon Dioxide BUN Creatinine Glucose POC Glucose 126 H 131 H 124 H Hemoglobin A1c Lactic Acid Calcium Phosphorus Magnesium Ferritin AST ALT Alkaline Phosphatase Lactate Dehydrogenase Troponin T C-Reactive Protein Total Protein Albumin LDL Cholesterol Direct Urine Creatinine Urine Total Protein Salicylates Acetaminophen Crossmatch 11/28/21 11/28/21 11/28/21 11:27 11:56 16:34 WBC 12.3 H RBC 3.18 L Hgb 9.2 L Hct 27.8 L MCH RDW 16.1 H Plt Count Lymph % (Auto) 10.9 L [place] % (Auto) 13.7 H Lymph # (Auto) [place] # (Auto) 1.7 H Seg Neutrophils % 72.2 H Seg Neuts % (Manual) Lymphocytes % (Manual) Monocytes % (Manual) Basophils % (Manual) Nucleated RBC % Seg Neutrophils # 8.9 H Seg Neutrophils # Man Lymphocytes # (Manual) Monocytes # (Manual) Eosinophils # (Manual) Basophils # (Manual) PT INR APTT D-Dimer Heparin Anti-Xa Level ABG pH ABG pO2 ABG HCO3 ABG O2 Saturation ABG Base Excess ABG Hemoglobin Oxyhemoglobin Sodium Potassium Chloride Carbon Dioxide BUN Creatinine Glucose POC Glucose 131 H 123 H Hemoglobin A1c Lactic Acid Calcium Phosphorus Magnesium Ferritin AST ALT Alkaline Phosphatase Lactate Dehydrogenase Troponin T C-Reactive Protein Total Protein Albumin LDL Cholesterol Direct Urine Creatinine Urine Total Protein Salicylates Acetaminophen Crossmatch 11/28/21 11/28/21 11/29/21 19:35 21:32 07:33 WBC RBC Hgb Hct MCH RDW Plt Count Lymph % (Auto) [place] % (Auto) Lymph # (Auto) [place] # (Auto) Seg Neutrophils % Seg Neuts % (Manual) Lymphocytes % (Manual) Monocytes % (Manual) Basophils % (Manual) Nucleated RBC % Seg Neutrophils # Seg Neutrophils # Man Lymphocytes # (Manual) Monocytes # (Manual) Eosinophils # (Manual) Basophils # (Manual) PT INR APTT D-Dimer Heparin Anti-Xa Level 0.12 L ABG pH ABG pO2 ABG HCO3 ABG O2 Saturation ABG Base Excess ABG Hemoglobin Oxyhemoglobin Sodium Potassium Chloride Carbon Dioxide BUN Creatinine Glucose POC Glucose 110 H 108 H Hemoglobin A1c Lactic Acid Calcium Phosphorus Magnesium Ferritin AST ALT Alkaline Phosphatase Lactate Dehydrogenase Troponin T C-Reactive Protein Total Protein Albumin LDL Cholesterol Direct Urine Creatinine Urine Total Protein Salicylates Acetaminophen Crossmatch 11/29/21 11/29/21 11/29/21 11:29 13:51 15:25 WBC 13.0 H RBC 3.41 L Hgb 9.5 L Hct 29.9 L MCH RDW 16.2 H Plt Count Lymph % (Auto) 11.1 L [place] % (Auto) 15.5 H Lymph # (Auto) [place] # (Auto) 2.0 H Seg Neutrophils % 71.8 H Seg Neuts % (Manual) Lymphocytes % (Manual) Monocytes % (Manual) Basophils % (Manual) Nucleated RBC % Seg Neutrophils # 9.3 H Seg Neutrophils # Man Lymphocytes # (Manual) Monocytes # (Manual) Eosinophils # (Manual) Basophils # (Manual) PT INR APTT D-Dimer Heparin Anti-Xa Level ABG pH ABG pO2 ABG HCO3 ABG O2 Saturation ABG Base Excess ABG Hemoglobin Oxyhemoglobin Sodium Potassium Chloride Carbon Dioxide BUN Creatinine Glucose POC Glucose 136 H 123 H Hemoglobin A1c Lactic Acid Calcium Phosphorus Magnesium Ferritin AST ALT Alkaline Phosphatase Lactate Dehydrogenase Troponin T C-Reactive Protein Total Protein Albumin LDL Cholesterol Direct Urine Creatinine Urine Total Protein Salicylates Acetaminophen Crossmatch 11/29/21 11/29/21 11/29/21 18:50 18:50 20:16 WBC RBC Hgb Hct MCH RDW Plt Count Lymph % (Auto) [place] % (Auto) Lymph # (Auto) [place] # (Auto) Seg Neutrophils % Seg Neuts % (Manual) Lymphocytes % (Manual) Monocytes % (Manual) Basophils % (Manual) Nucleated RBC % Seg Neutrophils # Seg Neutrophils # Man Lymphocytes # (Manual) Monocytes # (Manual) Eosinophils # (Manual) Basophils # (Manual) PT INR APTT D-Dimer Heparin Anti-Xa Level 0.21 L ABG pH ABG pO2 ABG HCO3 ABG O2 Saturation ABG Base Excess ABG Hemoglobin Oxyhemoglobin Sodium 126 L Potassium Chloride 86.3 L Carbon Dioxide BUN 38 H Creatinine 3.6 H Glucose 153 H POC Glucose 166 H Hemoglobin A1c Lactic Acid Calcium Phosphorus Magnesium Ferritin AST ALT Alkaline Phosphatase Lactate Dehydrogenase Troponin T C-Reactive Protein Total Protein Albumin LDL Cholesterol Direct Urine Creatinine Urine Total Protein Salicylates Acetaminophen Crossmatch 11/30/21 11/30/21 11/30/21 05:14 07:35 11:15 WBC RBC Hgb 8.7 L Hct 26.8 L MCH RDW Plt Count Lymph % (Auto) [place] % (Auto) Lymph # (Auto) [place] # (Auto) Seg Neutrophils % Seg Neuts % (Manual) Lymphocytes % (Manual) Monocytes % (Manual) Basophils % (Manual) Nucleated RBC % Seg Neutrophils # Seg Neutrophils # Man Lymphocytes # (Manual) Monocytes # (Manual) Eosinophils # (Manual) Basophils # (Manual) PT INR APTT D-Dimer Heparin Anti-Xa Level ABG pH ABG pO2 ABG HCO3 ABG O2 Saturation ABG Base Excess ABG Hemoglobin Oxyhemoglobin Sodium Potassium Chloride Carbon Dioxide BUN Creatinine Glucose POC Glucose 114 H 119 H Hemoglobin A1c Lactic Acid Calcium Phosphorus Magnesium Ferritin AST ALT Alkaline Phosphatase Lactate Dehydrogenase Troponin T C-Reactive Protein Total Protein Albumin LDL Cholesterol Direct Urine Creatinine Urine Total Protein Salicylates Acetaminophen Crossmatch 11/30/21 11/30/21 11/30/21 15:26 17:10 18:51 WBC RBC Hgb Hct MCH RDW Plt Count Lymph % (Auto) [place] % (Auto) Lymph # (Auto) [place] # (Auto) Seg Neutrophils % Seg Neuts % (Manual) Lymphocytes % (Manual) Monocytes % (Manual) Basophils % (Manual) Nucleated RBC % Seg Neutrophils # Seg Neutrophils # Man Lymphocytes # (Manual) Monocytes # (Manual) Eosinophils # (Manual) Basophils # (Manual) PT INR APTT D-Dimer Heparin Anti-Xa Level 0.10 L ABG pH ABG pO2 ABG HCO3 ABG O2 Saturation ABG Base Excess ABG Hemoglobin Oxyhemoglobin Sodium 126 L Potassium Chloride 86.5 L Carbon Dioxide BUN 42 H Creatinine 4.0 H Glucose 155 H POC Glucose 157 H Hemoglobin A1c Lactic Acid Calcium 8.0 L Phosphorus Magnesium Ferritin AST ALT Alkaline Phosphatase Lactate Dehydrogenase Troponin T C-Reactive Protein Total Protein Albumin LDL Cholesterol Direct Urine Creatinine Urine Total Protein Salicylates Acetaminophen Crossmatch 11/30/21 12/01/21 12/01/21 20:04 00:39 09:38 WBC 25.2 H RBC 3.06 L Hgb 8.5 L Hct 26.8 L MCH RDW 16.1 H Plt Count Lymph % (Auto) [place] % (Auto) Lymph # (Auto) [place] # (Auto) Seg Neutrophils % Seg Neuts % (Manual) 80.0 H Lymphocytes % (Manual) 9.0 L Monocytes % (Manual) Basophils % (Manual) Nucleated RBC % Seg Neutrophils # Seg Neutrophils # Man 20.2 H Lymphocytes # (Manual) Monocytes # (Manual) 1.3 H Eosinophils # (Manual) Basophils # (Manual) PT INR APTT D-Dimer Heparin Anti-Xa Level 0.18 L ABG pH ABG pO2 ABG HCO3 ABG O2 Saturation ABG Base Excess ABG Hemoglobin Oxyhemoglobin Sodium Potassium Chloride Carbon Dioxide BUN Creatinine Glucose POC Glucose 115 H Hemoglobin A1c Lactic Acid Calcium Phosphorus Magnesium Ferritin AST ALT Alkaline Phosphatase Lactate Dehydrogenase Troponin T C-Reactive Protein Total Protein Albumin LDL Cholesterol Direct Urine Creatinine Urine Total Protein Salicylates Acetaminophen Crossmatch 12/01/21 12/01/21 12/02/21 09:38 11:35 03:22 WBC 23.3 H RBC 2.61 L Hgb 7.5 L Hct 22.8 L MCH RDW 16.1 H Plt Count Lymph % (Auto) [place] % (Auto) Lymph # (Auto) [place] # (Auto) Seg Neutrophils % Seg Neuts % (Manual) 77.0 H Lymphocytes % (Manual) 7.0 L Monocytes % (Manual) 14.0 H Basophils % (Manual) Nucleated RBC % Seg Neutrophils # Seg Neutrophils # Man 17.9 H Lymphocytes # (Manual) Monocytes # (Manual) 3.3 H Eosinophils # (Manual) Basophils # (Manual) 0.2 H PT INR APTT D-Dimer Heparin Anti-Xa Level ABG pH ABG pO2 ABG HCO3 ABG O2 Saturation ABG Base Excess ABG Hemoglobin Oxyhemoglobin Sodium 127 L Potassium 5.1 H Chloride 87.9 L Carbon Dioxide BUN 49 H Creatinine 4.9 H Glucose 134 H POC Glucose 109 H Hemoglobin A1c Lactic Acid Calcium 7.9 L Phosphorus Magnesium Ferritin AST ALT Alkaline Phosphatase Lactate Dehydrogenase Troponin T C-Reactive Protein Total Protein Albumin LDL Cholesterol Direct Urine Creatinine Urine Total Protein Salicylates Acetaminophen Crossmatch 12/02/21 12/02/21 12/02/21 03:22 03:22 15:40 WBC RBC Hgb Hct MCH RDW Plt Count Lymph % (Auto) [place] % (Auto) Lymph # (Auto) [place] # (Auto) Seg Neutrophils % Seg Neuts % (Manual) Lymphocytes % (Manual) Monocytes % (Manual) Basophils % (Manual) Nucleated RBC % Seg Neutrophils # Seg Neutrophils # Man Lymphocytes # (Manual) Monocytes # (Manual) Eosinophils # (Manual) Basophils # (Manual) PT INR APTT D-Dimer Heparin Anti-Xa Level 0.15 L < 0.10 L ABG pH ABG pO2 ABG HCO3 ABG O2 Saturation ABG Base Excess ABG Hemoglobin Oxyhemoglobin Sodium 129 L Potassium Chloride 91.7 L Carbon Dioxide BUN 42 H Creatinine 4.4 H Glucose POC Glucose Hemoglobin A1c Lactic Acid Calcium 8.0 L Phosphorus 5.20 H Magnesium Ferritin AST ALT Alkaline Phosphatase Lactate Dehydrogenase Troponin T C-Reactive Protein Total Protein Albumin LDL Cholesterol Direct Urine Creatinine Urine Total Protein Salicylates Acetaminophen Crossmatch 12/02/21 12/02/21 12/03/21 17:45 21:03 05:24 WBC 22.3 H RBC 2.69 L Hgb 7.4 L Hct 23.5 L MCH RDW 16.5 H Plt Count Lymph % (Auto) [place] % (Auto) Lymph # (Auto) [place] # (Auto) Seg Neutrophils % Seg Neuts % (Manual) 85.5 H Lymphocytes % (Manual) 6.0 L Monocytes % (Manual) Basophils % (Manual) Nucleated RBC % Seg Neutrophils # Seg Neutrophils # Man 19.1 H Lymphocytes # (Manual) Monocytes # (Manual) 1.0 H Eosinophils # (Manual) 0.7 H Basophils # (Manual) PT INR APTT D-Dimer Heparin Anti-Xa Level ABG pH ABG pO2 ABG HCO3 ABG O2 Saturation ABG Base Excess ABG Hemoglobin Oxyhemoglobin Sodium Potassium Chloride Carbon Dioxide BUN Creatinine Glucose POC Glucose 122 H 121 H Hemoglobin A1c Lactic Acid Calcium Phosphorus Magnesium Ferritin AST ALT Alkaline Phosphatase Lactate Dehydrogenase Troponin T C-Reactive Protein Total Protein Albumin LDL Cholesterol Direct Urine Creatinine Urine Total Protein Salicylates Acetaminophen Crossmatch 12/03/21 12/03/21 12/03/21 08:00 11:19 15:11 WBC RBC Hgb Hct MCH RDW Plt Count Lymph % (Auto) [place] % (Auto) Lymph # (Auto) [place] # (Auto) Seg Neutrophils % Seg Neuts % (Manual) Lymphocytes % (Manual) Monocytes % (Manual) Basophils % (Manual) Nucleated RBC % Seg Neutrophils # Seg Neutrophils # Man Lymphocytes # (Manual) Monocytes # (Manual) Eosinophils # (Manual) Basophils # (Manual) PT INR APTT D-Dimer Heparin Anti-Xa Level ABG pH ABG pO2 ABG HCO3 ABG O2 Saturation ABG Base Excess ABG Hemoglobin Oxyhemoglobin Sodium 134 L Potassium Chloride 95.9 L Carbon Dioxide BUN 30 H Creatinine 3.5 H Glucose 110 H POC Glucose 108 H 117 H Hemoglobin A1c Lactic Acid Calcium Phosphorus Magnesium Ferritin AST ALT Alkaline Phosphatase Lactate Dehydrogenase Troponin T C-Reactive Protein Total Protein Albumin LDL Cholesterol Direct Urine Creatinine Urine Total Protein Salicylates Acetaminophen Crossmatch 12/03/21 12/04/21 12/04/21 20:32 06:15 06:15 WBC 18.5 H RBC 2.88 L Hgb 8.0 L Hct 25.6 L MCH RDW 16.4 H Plt Count Lymph % (Auto) [place] % (Auto) Lymph # (Auto) [place] # (Auto) Seg Neutrophils % Seg Neuts % (Manual) 74.0 H Lymphocytes % (Manual) 11.0 L Monocytes % (Manual) 9.0 H Basophils % (Manual) Nucleated RBC % Seg Neutrophils # Seg Neutrophils # Man 13.7 H Lymphocytes # (Manual) Monocytes # (Manual) 1.7 H Eosinophils # (Manual) Basophils # (Manual) PT INR APTT D-Dimer Heparin Anti-Xa Level ABG pH ABG pO2 ABG HCO3 ABG O2 Saturation ABG Base Excess ABG Hemoglobin Oxyhemoglobin Sodium 135 L Potassium Chloride 96.9 L Carbon Dioxide BUN 19 H Creatinine 2.8 H Glucose 102 H POC Glucose 122 H Hemoglobin A1c Lactic Acid Calcium Phosphorus Magnesium Ferritin AST ALT Alkaline Phosphatase Lactate Dehydrogenase Troponin T C-Reactive Protein Total Protein Albumin LDL Cholesterol Direct Urine Creatinine Urine Total Protein Salicylates Acetaminophen Crossmatch 12/04/21 12/04/21 12/04/21 08:14 11:17 15:58 WBC RBC Hgb Hct MCH RDW Plt Count Lymph % (Auto) [place] % (Auto) Lymph # (Auto) [place] # (Auto) Seg Neutrophils % Seg Neuts % (Manual) Lymphocytes % (Manual) Monocytes % (Manual) Basophils % (Manual) Nucleated RBC % Seg Neutrophils # Seg Neutrophils # Man Lymphocytes # (Manual) Monocytes # (Manual) Eosinophils # (Manual) Basophils # (Manual) PT INR APTT D-Dimer Heparin Anti-Xa Level ABG pH ABG pO2 ABG HCO3 ABG O2 Saturation ABG Base Excess ABG Hemoglobin Oxyhemoglobin Sodium Potassium Chloride Carbon Dioxide BUN Creatinine Glucose POC Glucose 106 H 125 H 113 H Hemoglobin A1c Lactic Acid Calcium Phosphorus Magnesium Ferritin AST ALT Alkaline Phosphatase Lactate Dehydrogenase Troponin T C-Reactive Protein Total Protein Albumin LDL Cholesterol Direct Urine Creatinine Urine Total Protein Salicylates Acetaminophen Crossmatch 12/04/21 12/05/21 12/05/21 20:25 05:05 08:15 WBC 19.4 H RBC 2.89 L Hgb 8.1 L Hct 25.6 L MCH RDW 16.3 H Plt Count Lymph % (Auto) [place] % (Auto) Lymph # (Auto) [place] # (Auto) Seg Neutrophils % Seg Neuts % (Manual) Lymphocytes % (Manual) 13.0 L Monocytes % (Manual) 13.0 H Basophils % (Manual) Nucleated RBC % Seg Neutrophils # Seg Neutrophils # Man 12.4 H Lymphocytes # (Manual) Monocytes # (Manual) 2.5 H Eosinophils # (Manual) 0.8 H Basophils # (Manual) PT INR APTT D-Dimer Heparin Anti-Xa Level ABG pH ABG pO2 ABG HCO3 ABG O2 Saturation ABG Base Excess ABG Hemoglobin Oxyhemoglobin Sodium Potassium Chloride Carbon Dioxide BUN Creatinine Glucose POC Glucose 130 H 107 H Hemoglobin A1c Lactic Acid Calcium Phosphorus Magnesium Ferritin AST ALT Alkaline Phosphatase Lactate Dehydrogenase Troponin T C-Reactive Protein Total Protein Albumin LDL Cholesterol Direct Urine Creatinine Urine Total Protein Salicylates Acetaminophen Crossmatch 12/05/21 12/05/21 12/05/21 11:18 16:42 21:14 WBC RBC Hgb Hct MCH RDW Plt Count Lymph % (Auto) [place] % (Auto) Lymph # (Auto) [place] # (Auto) Seg Neutrophils % Seg Neuts % (Manual) Lymphocytes % (Manual) Monocytes % (Manual) Basophils % (Manual) Nucleated RBC % Seg Neutrophils # Seg Neutrophils # Man Lymphocytes # (Manual) Monocytes # (Manual) Eosinophils # (Manual) Basophils # (Manual) PT INR APTT D-Dimer Heparin Anti-Xa Level ABG pH ABG pO2 ABG HCO3 ABG O2 Saturation ABG Base Excess ABG Hemoglobin Oxyhemoglobin Sodium Potassium Chloride Carbon Dioxide BUN Creatinine Glucose POC Glucose 114 H 122 H 119 H Hemoglobin A1c Lactic Acid Calcium Phosphorus Magnesium Ferritin AST ALT Alkaline Phosphatase Lactate Dehydrogenase Troponin T C-Reactive Protein Total Protein Albumin LDL Cholesterol Direct Urine Creatinine Urine Total Protein Salicylates Acetaminophen Crossmatch 12/05/21 12/06/21 12/06/21 23:51 04:36 04:36 WBC RBC Hgb 8.0 L Hct 25.7 L MCH RDW Plt Count Lymph % (Auto) [place] % (Auto) Lymph # (Auto) [place] # (Auto) Seg Neutrophils % Seg Neuts % (Manual) Lymphocytes % (Manual) Monocytes % (Manual) Basophils % (Manual) Nucleated RBC % Seg Neutrophils # Seg Neutrophils # Man Lymphocytes # (Manual) Monocytes # (Manual) Eosinophils # (Manual) Basophils # (Manual) PT INR APTT D-Dimer Heparin Anti-Xa Level 0.71 H ABG pH ABG pO2 ABG HCO3 ABG O2 Saturation ABG Base Excess ABG Hemoglobin Oxyhemoglobin Sodium 132 L Potassium Chloride 92.5 L Carbon Dioxide BUN 35 H Creatinine 4.0 H Glucose POC Glucose Hemoglobin A1c Lactic Acid Calcium Phosphorus Magnesium Ferritin AST ALT Alkaline Phosphatase Lactate Dehydrogenase Troponin T C-Reactive Protein Total Protein Albumin LDL Cholesterol Direct Urine Creatinine Urine Total Protein Salicylates Acetaminophen Crossmatch 12/06/21 12/06/21 12/06/21 07:32 11:12 15:49 WBC RBC Hgb Hct MCH RDW Plt Count Lymph % (Auto) [place] % (Auto) Lymph # (Auto) [place] # (Auto) Seg Neutrophils % Seg Neuts % (Manual) Lymphocytes % (Manual) Monocytes % (Manual) Basophils % (Manual) Nucleated RBC % Seg Neutrophils # Seg Neutrophils # Man Lymphocytes # (Manual) Monocytes # (Manual) Eosinophils # (Manual) Basophils # (Manual) PT INR APTT D-Dimer Heparin Anti-Xa Level ABG pH ABG pO2 ABG HCO3 ABG O2 Saturation ABG Base Excess ABG Hemoglobin Oxyhemoglobin Sodium Potassium Chloride Carbon Dioxide BUN Creatinine Glucose POC Glucose 106 H 112 H 111 H Hemoglobin A1c Lactic Acid Calcium Phosphorus Magnesium Ferritin AST ALT Alkaline Phosphatase Lactate Dehydrogenase Troponin T C-Reactive Protein Total Protein Albumin LDL Cholesterol Direct Urine Creatinine Urine Total Protein Salicylates Acetaminophen Crossmatch 12/06/21 12/06/21 12/07/21 17:13 21:31 06:11 WBC RBC Hgb Hct MCH RDW Plt Count Lymph % (Auto) [place] % (Auto) Lymph # (Auto) [place] # (Auto) Seg Neutrophils % Seg Neuts % (Manual) Lymphocytes % (Manual) Monocytes % (Manual) Basophils % (Manual) Nucleated RBC % Seg Neutrophils # Seg Neutrophils # Man Lymphocytes # (Manual) Monocytes # (Manual) Eosinophils # (Manual) Basophils # (Manual) PT INR APTT D-Dimer Heparin Anti-Xa Level ABG pH ABG pO2 ABG HCO3 ABG O2 Saturation ABG Base Excess ABG Hemoglobin Oxyhemoglobin Sodium 126 L Potassium Chloride 90.1 L Carbon Dioxide BUN 43 H Creatinine 4.2 H Glucose POC Glucose 113 H 112 H Hemoglobin A1c Lactic Acid Calcium Phosphorus Magnesium Ferritin AST ALT Alkaline Phosphatase Lactate Dehydrogenase Troponin T C-Reactive Protein Total Protein Albumin LDL Cholesterol Direct Urine Creatinine Urine Total Protein Salicylates Acetaminophen Crossmatch 12/07/21 12/07/21 12/08/21 12:04 21:36 04:53 WBC RBC Hgb Hct MCH RDW Plt Count Lymph % (Auto) [place] % (Auto) Lymph # (Auto) [place] # (Auto) Seg Neutrophils % Seg Neuts % (Manual) Lymphocytes % (Manual) Monocytes % (Manual) Basophils % (Manual) Nucleated RBC % Seg Neutrophils # Seg Neutrophils # Man Lymphocytes # (Manual) Monocytes # (Manual) Eosinophils # (Manual) Basophils # (Manual) PT INR APTT D-Dimer Heparin Anti-Xa Level ABG pH ABG pO2 ABG HCO3 ABG O2 Saturation ABG Base Excess ABG Hemoglobin Oxyhemoglobin Sodium 128 L Potassium Chloride 93.1 L Carbon Dioxide 21 L BUN 39 H Creatinine 3.9 H Glucose 103 H POC Glucose 119 H 112 H Hemoglobin A1c Lactic Acid Calcium Phosphorus Magnesium Ferritin AST ALT Alkaline Phosphatase Lactate Dehydrogenase Troponin T C-Reactive Protein Total Protein Albumin LDL Cholesterol Direct Urine Creatinine Urine Total Protein Salicylates Acetaminophen Crossmatch 12/08/21 12/08/21 12/08/21 04:53 08:56 11:20 WBC 24.2 H RBC 2.71 L Hgb 7.6 L Hct 24.1 L MCH RDW 16.7 H Plt Count 114 L Lymph % (Auto) [place] % (Auto) Lymph # (Auto) [place] # (Auto) Seg Neutrophils % Seg Neuts % (Manual) 76.0 H Lymphocytes % (Manual) Monocytes % (Manual) Basophils % (Manual) Nucleated RBC % 1.0 H Seg Neutrophils # Seg Neutrophils # Man 18.4 H Lymphocytes # (Manual) Monocytes # (Manual) 1.5 H Eosinophils # (Manual) 1.0 H Basophils # (Manual) PT INR APTT D-Dimer Heparin Anti-Xa Level 0.94 H ABG pH ABG pO2 ABG HCO3 ABG O2 Saturation ABG Base Excess ABG Hemoglobin Oxyhemoglobin Sodium Potassium Chloride Carbon Dioxide BUN Creatinine Glucose POC Glucose 119 H Hemoglobin A1c Lactic Acid Calcium Phosphorus Magnesium Ferritin AST ALT Alkaline Phosphatase Lactate Dehydrogenase Troponin T C-Reactive Protein Total Protein Albumin LDL Cholesterol Direct Urine Creatinine Urine Total Protein Salicylates Acetaminophen Crossmatch 12/08/21 12/08/21 12/09/21 16:55 21:18 07:05 WBC RBC Hgb Hct MCH RDW Plt Count Lymph % (Auto) [place] % (Auto) Lymph # (Auto) [place] # (Auto) Seg Neutrophils % Seg Neuts % (Manual) Lymphocytes % (Manual) Monocytes % (Manual) Basophils % (Manual) Nucleated RBC % Seg Neutrophils # Seg Neutrophils # Man Lymphocytes # (Manual) Monocytes # (Manual) Eosinophils # (Manual) Basophils # (Manual) PT INR APTT D-Dimer Heparin Anti-Xa Level ABG pH ABG pO2 ABG HCO3 ABG O2 Saturation ABG Base Excess ABG Hemoglobin Oxyhemoglobin Sodium 124 L Potassium Chloride 89.9 L Carbon Dioxide BUN 45 H Creatinine 3.5 H Glucose POC Glucose 112 H 122 H Hemoglobin A1c Lactic Acid Calcium Phosphorus Magnesium Ferritin AST ALT Alkaline Phosphatase Lactate Dehydrogenase Troponin T C-Reactive Protein Total Protein Albumin LDL Cholesterol Direct Urine Creatinine Urine Total Protein Salicylates Acetaminophen Crossmatch 12/09/21 12/09/21 12/10/21 11:02 20:11 05:22 WBC RBC Hgb Hct MCH RDW Plt Count Lymph % (Auto) [place] % (Auto) Lymph # (Auto) [place] # (Auto) Seg Neutrophils % Seg Neuts % (Manual) Lymphocytes % (Manual) Monocytes % (Manual) Basophils % (Manual) Nucleated RBC % Seg Neutrophils # Seg Neutrophils # Man Lymphocytes # (Manual) Monocytes # (Manual) Eosinophils # (Manual) Basophils # (Manual) PT INR APTT D-Dimer Heparin Anti-Xa Level ABG pH ABG pO2 ABG HCO3 ABG O2 Saturation ABG Base Excess ABG Hemoglobin Oxyhemoglobin Sodium 131 L D Potassium Chloride 97.0 L Carbon Dioxide BUN 34 H Creatinine 2.9 H Glucose POC Glucose 132 H 108 H Hemoglobin A1c Lactic Acid Calcium Phosphorus Magnesium Ferritin AST ALT Alkaline Phosphatase Lactate Dehydrogenase Troponin T C-Reactive Protein Total Protein Albumin LDL Cholesterol Direct Urine Creatinine Urine Total Protein Salicylates Acetaminophen Crossmatch 12/10/21 12/10/21 12/10/21 05:22 07:48 11:30 WBC 14.5 H RBC 2.65 L Hgb 7.7 L Hct 23.6 L MCH RDW 17.0 H Plt Count 119 L Lymph % (Auto) [place] % (Auto) Lymph # (Auto) [place] # (Auto) Seg Neutrophils % Seg Neuts % (Manual) 73.0 H Lymphocytes % (Manual) 7.0 L Monocytes % (Manual) Basophils % (Manual) 2.0 H Nucleated RBC % 1.0 H Seg Neutrophils # Seg Neutrophils # Man 10.6 H Lymphocytes # (Manual) 1.0 L Monocytes # (Manual) Eosinophils # (Manual) Basophils # (Manual) 0.3 H PT INR APTT D-Dimer Heparin Anti-Xa Level ABG pH ABG pO2 ABG HCO3 ABG O2 Saturation ABG Base Excess ABG Hemoglobin Oxyhemoglobin Sodium Potassium Chloride Carbon Dioxide BUN Creatinine Glucose POC Glucose 106 H 129 H Hemoglobin A1c Lactic Acid Calcium Phosphorus Magnesium Ferritin AST ALT Alkaline Phosphatase Lactate Dehydrogenase Troponin T C-Reactive Protein Total Protein Albumin LDL Cholesterol Direct Urine Creatinine Urine Total Protein Salicylates Acetaminophen Crossmatch 12/10/21 12/10/21 12/10/21 16:17 20:56 21:40 WBC RBC Hgb Hct MCH RDW Plt Count Lymph % (Auto) [place] % (Auto) Lymph # (Auto) [place] # (Auto) Seg Neutrophils % Seg Neuts % (Manual) Lymphocytes % (Manual) Monocytes % (Manual) Basophils % (Manual) Nucleated RBC % Seg Neutrophils # Seg Neutrophils # Man Lymphocytes # (Manual) Monocytes # (Manual) Eosinophils # (Manual) Basophils # (Manual) PT INR APTT D-Dimer Heparin Anti-Xa Level 0.87 H ABG pH ABG pO2 ABG HCO3 ABG O2 Saturation ABG Base Excess ABG Hemoglobin Oxyhemoglobin Sodium Potassium Chloride Carbon Dioxide BUN Creatinine Glucose POC Glucose 108 H 113 H Hemoglobin A1c Lactic Acid Calcium Phosphorus Magnesium Ferritin AST ALT Alkaline Phosphatase Lactate Dehydrogenase Troponin T C-Reactive Protein Total Protein Albumin LDL Cholesterol Direct Urine Creatinine Urine Total Protein Salicylates Acetaminophen Crossmatch 12/11/21 12/11/21 12/11/21 05:21 05:21 08:10 WBC RBC Hgb Hct MCH RDW Plt Count Lymph % (Auto) [place] % (Auto) Lymph # (Auto) [place] # (Auto) Seg Neutrophils % Seg Neuts % (Manual) Lymphocytes % (Manual) Monocytes % (Manual) Basophils % (Manual) Nucleated RBC % Seg Neutrophils # Seg Neutrophils # Man Lymphocytes # (Manual) Monocytes # (Manual) Eosinophils # (Manual) Basophils # (Manual) PT INR APTT D-Dimer Heparin Anti-Xa Level 0.85 H ABG pH ABG pO2 ABG HCO3 ABG O2 Saturation ABG Base Excess ABG Hemoglobin Oxyhemoglobin Sodium 129 L Potassium Chloride 94.3 L Carbon Dioxide BUN 41 H Creatinine 3.0 H Glucose 111 H POC Glucose 109 H Hemoglobin A1c Lactic Acid Calcium Phosphorus Magnesium Ferritin AST ALT Alkaline Phosphatase Lactate Dehydrogenase Troponin T C-Reactive Protein Total Protein Albumin LDL Cholesterol Direct Urine Creatinine Urine Total Protein Salicylates Acetaminophen Crossmatch 12/11/21 12/11/21 12/11/21 12:00 13:08 13:08 WBC 13.6 H RBC 2.78 L Hgb 8.1 L Hct 25.2 L MCH RDW 17.7 H Plt Count Lymph % (Auto) [place] % (Auto) Lymph # (Auto) [place] # (Auto) Seg Neutrophils % Seg Neuts % (Manual) Lymphocytes % (Manual) Monocytes % (Manual) Basophils % (Manual) Nucleated RBC % Seg Neutrophils # Seg Neutrophils # Man Lymphocytes # (Manual) Monocytes # (Manual) Eosinophils # (Manual) Basophils # (Manual) PT INR APTT 116.8 H* D-Dimer Heparin Anti-Xa Level ABG pH ABG pO2 ABG HCO3 ABG O2 Saturation ABG Base Excess ABG Hemoglobin Oxyhemoglobin Sodium Potassium Chloride Carbon Dioxide BUN Creatinine Glucose POC Glucose 170 H Hemoglobin A1c Lactic Acid Calcium Phosphorus Magnesium Ferritin AST ALT Alkaline Phosphatase Lactate Dehydrogenase Troponin T C-Reactive Protein Total Protein Albumin LDL Cholesterol Direct Urine Creatinine Urine Total Protein Salicylates Acetaminophen Crossmatch 12/11/21 12/12/21 13:08 05:15 WBC RBC Hgb Hct MCH RDW Plt Count Lymph % (Auto) [place] % (Auto) Lymph # (Auto) [place] # (Auto) Seg Neutrophils % Seg Neuts % (Manual) Lymphocytes % (Manual) Monocytes % (Manual) Basophils % (Manual) Nucleated RBC % Seg Neutrophils # Seg Neutrophils # Man Lymphocytes # (Manual) Monocytes # (Manual) Eosinophils # (Manual) Basophils # (Manual) PT INR APTT D-Dimer Heparin Anti-Xa Level ABG pH ABG pO2 ABG HCO3 ABG O2 Saturation ABG Base Excess ABG Hemoglobin Oxyhemoglobin Sodium 129 L Potassium 5.1 H Chloride 95.8 L Carbon Dioxide 21 L BUN 48 H Creatinine 3.0 H 2.9 H Glucose POC Glucose Hemoglobin A1c Lactic Acid Calcium Phosphorus Magnesium Ferritin AST ALT Alkaline Phosphatase Lactate Dehydrogenase Troponin T C-Reactive Protein Total Protein Albumin LDL Cholesterol Direct Urine Creatinine Urine Total Protein Salicylates Acetaminophen Crossmatch Chest x-ray: report reviewed, image reviewed Additional Studies: CHEST 1 VIEW 12/12/2021 5:06 AM INDICATION / CLINICAL INFORMATION: Follow up on pulmonary infiltrates.. COMPARISON: 11/30/21. FINDINGS: SUPPORT DEVICES: New right jugular CVL tip overlies the mid SVC. HEART / MEDIASTINUM: Mild cardiomegaly is stable. There is mild pulmonary vascular congestion. LUNGS / PLEURA: Pleuroparenchymal opacity in the left lower hemithorax is probably unchanged. No new abnormality. No pneumothorax. ADDITIONAL FINDINGS: No significant additional findings. IMPRESSION: No significant interval change. Allied health notes reviewed: nursing
[2021-12-12] MEDS: INSULIN LISPRO 100 UNIT/ML SUB-Q SCH ×4 (14:01→21:50)
[2021-12-12] MEDS: DOCUSATE SODIUM 100 MG CAP PO SCH ×2 (14:03→21:45)
[2021-12-12] MEDS: SENNOSIDES/DOCUSATE SODIUM 8.6/50 MG TAB PO SCH ×2 (14:03→21:45)
[2021-12-12] MEDS: AMIODARONE 200 MG TAB PO SCH (14:03)
[2021-12-12] MEDS: FAMOTIDINE 10 MG TAB PO SCH ×2 (14:03→21:49)
[2021-12-12] MEDS: METOPROLOL TARTRATE 50 MG TAB PO SCH ×2 (14:03→21:45)
--- NOTE | 2021-12-12 14:08 | Progress Note ---
Assessment and Plan Patient is a 66-year-old female with unknown past medical history brought into the ED following outside of hospital cardiac arrest thought to be PEA with thought to have downtime of 7 to 9 minutes however details are unclear S/P PEA cardiopulmonary arrest- Acute hypoxic respiratory failure-pulm following Septic shock Bacteremia Pneumonia Acute renal failure on HD-nephrology following Atrial flutter w/ RVR Pneumothorax- s/p CT Acute bilateral DVT-on Heparin gtt Hypokalemia Transaminitis Retroperitoneal Hematoma s/p IVC Echo 10/30/2021-technically difficult study due to body habitus. EF 25 to 30%. Right ventricular systolic function is normal. No pericardial effusion Plan: Previously on metoprolol 100 mg p.o. twice daily, aldactone 25mg PO QD, and losartan 25 mg p.o. daily Stress test was canceled this a.m. due to patient not feeling well. Will reschedule stress test for tomorrow. Patient to be n.p.o. after midnight Continue metoprolol 100 mg p.o. twice daily a.m. amiodarone 200 mg p.o. daily LAYO/ARB on hold due to patient being unable to tolerate and having hypotension Volume management per nephrology due to end-stage renal disease on hemodialysis Patient currently anticoagulated on Eliquis Patient seen in conjunction with Dr. Cueto who agrees with this plan of care - Patient Problems (1) Cardiopulmonary arrest Current Visit: Yes Status: Acute (2) Hypokalemia Current Visit: Yes Status: Acute (3) Transaminitis Current Visit: Yes Status: Acute (4) Aspiration pneumonia Current Visit: Yes Status: Acute (5) Acute hypoxemic respiratory failure Current Visit: Yes Status: Acute (6) Septic shock Current Visit: Yes Status: Acute (7) Toxic metabolic encephalopathy Current Visit: Yes Status: Acute (8) Shock liver Current Visit: Yes Status: Acute Subjective Date of service: 12/12/21 Principal diagnosis: AHRF; Cardiac arrest; R. pneumothorax; pneumonia; AMS; DVT's; SIERRA; Obesity Interval history: Patient stress test canceled today due to patient not feeling well. Patient had hemodialysis this a.m. Patient A. fib rate trending 80s-90s short episodes into 110s. Objective Vital Signs Temp Pulse Resp Resp BP Pulse Ox 12/12/21 10:00 100 12/12/21 07:32 97.9 F 118 H 24 140/90 100 12/12/21 04:45 98.5 F 118 H 20 133/78 100 12/12/21 04:00 118 H 12/12/21 00:12 17 12/11/21 23:56 98.2 F 117 H 20 118/82 100 12/11/21 23:00 75 12/11/21 21:49 100 12/11/21 21:45 74 16 100 12/11/21 21:24 96 H 131/82 12/11/21 20:59 18 12/11/21 20:04 97.7 F 121 H 16 131/82 98 12/11/21 20:00 98 H 98 12/11/21 16:26 97.7 F 42 L 18 137/78 100 12/11/21 16:00 89 - Physical Examination General: No Apparent Distress HEENT: Positive: EOMI, Normocephaly Neck: Positive: trachea midline. Negative: JVD/HJR Cardiac: Positive: irregularly irregular Lungs: Positive: Decreased Breath Sounds Neuro: Positive: Grossly Intact Abdomen: Positive: Soft Skin: Negative: Rash Musculoskeletal: No Pain Extremities: Present: upper extr. pulses, +1 Edema, warm - Labs and Meds Coagulation 12/11/21 Range/Units 13:08 PT 13.4 (12.2-14.9) Sec. INR 0.92 (0.87-1.13) APTT 116.8 H* (24.2-36.6) Sec. Comprehensive Metabolic Panel 12/11/21 12/12/21 Range/Units 13:08 05:15 Sodium 129 L (137-145) mmol/L Potassium 5.1 H (3.6-5.0) mmol/L Chloride 95.8 L (98-107) mmol/L Carbon Dioxide 21 L (22-30) mmol/L BUN 48 H (7-17) mg/dL Creatinine 3.0 H 2.9 H (0.6-1.2) mg/dL Glucose 88 (65-100) mg/dL Calcium 9.0 (8.4-10.2) mg/dL - Imaging and Cardiology EKG: report reviewed, image reviewed Echo: report reviewed - Telemetry EKG Rhythm: Atrial Fibrillation - EKG Supraventricular dysrhythmia: atrial fibrillation Ventricular dysrhythmias: ventricular premature com Repolarization changes or abnormalities: nonspecific abnormality, ST segment, and/or T wave Myocardial infarction: septal ID (old age or ind - Allied health notes Allied health notes reviewed: nursing
[2021-12-12 14:23] LABS: ABG Methemoglobin 0.7 % (0.0-1.5); ABG PCO2 50.1 mm Hg; ABG PH 7.333 pH Units (7.350-7.450)
[2021-12-12] MEDS: ACETAMINOPHEN 325 MG TAB PO PRN (15:55)
[2021-12-13] MEDS: oxyCODONE /ACETAMINOPHEN 5-325MG TAB PO PRN (03:29)
[2021-12-13] MEDS: GABAPENTIN 100 MG CAP PO SCH ×3 (05:32→22:09)
[2021-12-13 06:36] LABS: Hematocrit 22.8 % (30.3-42.9); Hemoglobin 7.2 gm/dl (10.1-14.3); Mean Corpuscular HGB Conc 32 % (30-34); Mean Corpuscular Volume 90 fl (79-97); Platelet Count 178 K/mm3 (140-440); Red Blood Count 2.54 M/mm3 (3.65-5.03)
[2021-12-13] MEDS ORDERED: REGADENOSON 0.4 MG/5 ML INJ IV ONE ×2 (07:14→09:45)
[2021-12-13] MEDS: INSULIN LISPRO 100 UNIT/ML SUB-Q SCH ×4 (07:30→22:11)
--- NOTE | 2021-12-13 08:34 | Progress Note ---
Assessment and Plan Acute Renal Failure secondary to Ischemic ATN secondary to Sepsis, Cardiac arrest and Hypotension S/P Cardiac Arrest Acute Hypoxemic Respiratory Failure Acute DVT Sepsis CHF Anemia Hyperkalemia Hyponatremia Plan: labs are pending this AM no HD for now fluid restriction 1000 cc a day CHF-LVEF 25-30 % Anemia-On Epogen 10,000 units TIW Obtain daily weights Strict I/O's daily Renally dose medications Avoid nephrotoxic agents Continue to monitor renal function closely Assess dialysis needs daily Subjective Date of service: 12/13/21 Principal diagnosis: AHRF; Cardiac arrest; R. pneumothorax; pneumonia; AMS; DVT's; SIERRA; Obesity Interval history: tolerated HD yesterday Objective - Vital Signs Vital signs: Vital Signs - 12hr 12/12/21 12/12/21 12/12/21 21:20 21:49 23:17 Temperature 98.4 F Pulse Rate 70 71 Respiratory 16 20 Rate Blood Pressure 111/60 O2 Sat by Pulse 100 100 99 Oximetry 12/13/21 12/13/21 12/13/21 00:35 00:46 03:53 Temperature 97.6 F Pulse Rate 71 101 H Respiratory 16 19 Rate Blood Pressure 120/72 O2 Sat by Pulse 100 98 93 Oximetry - Lab 12/13/21 06:19 12/12/21 05:15 Most recent lab results ABG pH 7.333 pH Units (7.350-7.450) L 12/12/21 14:10 ABG pCO2 50.1 mm Hg 12/12/21 14:10 ABG pO2 57.0 mm Hg (80.0-90.0) L 12/12/21 14:10 ABG HCO3 26.0 mmol/L (20.0-26.0) 12/12/21 14:10 ABG O2 Saturation 88.0 % (95.0-99.0) L 12/12/21 14:10 Calcium 9.0 mg/dL (8.4-10.2) 12/12/21 05:15 Phosphorus 5.20 mg/dL (2.5-4.5) H 12/02/21 03:22 Magnesium 1.60 mg/dL (1.7-2.3) L 11/19/21 14:38 Urine Creatinine 190.9 mg/dL (0.1-20.0) H 11/04/21 Unknown Urine Sodium 10 mmol/L 11/04/21 Unknown Urine Total Protein 172 mg/dL (5-11.8) H 11/04/21 Unknown Medications & Allergies - Medications Allergies/Adverse Reactions: Allergies No Known Allergies Allergy (Verified 10/29/21 14:01) Home Medications: Home Medications Medication Instructions Recorded Confirmed Last Taken Type Unobtainable 11/10/21 11/10/21 Unknown History Active Medications: Generic Name Dose Route Start Last Admin Trade Name Freq PRN Reason Stop Dose Admin Acetaminophen 650 mg 10/29/21 17:04 11/12/21 22:53 Acetaminophen 650 Mg Rect Supp [place] 650 mg Q6H PRN Administration Pain MILD(1-3)/Fever >100.5/NIEVES Acetaminophen 650 mg 11/19/21 16:35 12/12/21 15:55 Acetaminophen 325 Mg Tab PO 650 mg Q6HR PRN Administration PAIN Albumin Human 50 gm 12/02/21 11:00 12/02/21 11:55 Albumin Human 25% (25 Gm/100 Ml) Inj IV 50 gm ZACH PRN Administration Hypotension Alprazolam 0.25 mg 11/14/21 14:29 12/11/21 09:16 Alprazolam 0.25 Mg Tab PO 0.25 mg Q8H PRN Administration Anxiety Amiodarone HCl 200 mg 12/10/21 10:00 12/12/21 14:03 Amiodarone 200 Mg Tab PO Not Given DAILY RAMON Apixaban 5 mg 12/12/21 10:00 12/12/21 21:45 Apixaban 5 Mg Tab PO 5 mg Q12HR RAMON Administration Protocol Docusate Sodium 100 mg 11/18/21 15:00 12/12/21 21:45 Docusate Sodium 100 Mg Cap PO 100 mg BID RAMON Administration Epoetin Landon-epbx 10,000 unit 12/06/21 10:00 12/07/21 15:30 Epoetin [place]-Epbx 10,000 Unit/1 Ml Vial IV 10,000 unit ZACH PRN Administration hemodialysis Famotidine 10 mg 11/06/21 10:00 12/12/21 21:49 Famotidine 10 Mg Tab PO 10 mg BID RAMON Administration Gabapentin 100 mg 11/28/21 14:00 12/13/21 05:32 Gabapentin 100 Mg Cap PO 100 mg Q8HR RAMON Administration Hydrophilic Ointment 1 applic 10/29/21 14:29 11/09/21 08:51 Lip Therapy Vaseline TP 1 applic Q2HR PRN Administration Dry Lips Sodium Chloride 100 mls @ 999 mls/hr 12/01/21 14:44 Nacl 0.9% IV ZACH PRN Hypotension Insulin Human Lispro 0 unit 11/25/21 22:00 12/12/21 21:50 Insulin Lispro 100 Unit/Ml SUB-Q Not Given ACHS [facility] Protocol Lactulose 20 gm 11/18/21 14:43 12/06/21 15:26 Lactulose 20 Gm/30 Ml Oral Liqd PO 20 gm Q6H PRN Administration Constipation Melatonin 10 mg 11/22/21 17:31 12/10/21 22:19 Melatonin 5 Mg Tab PO 10 mg QHS PRN Administration Sleep Metoprolol Tartrate 100 mg 12/07/21 11:00 12/12/21 21:45 Metoprolol Tartrate 50 Mg Tab PO 100 mg BID RAMON Administration Midodrine 10 mg 12/01/21 12:00 12/12/21 15:54 Midodrine 5 Mg Tab PO 10 mg TID@0800,1200,1600 RAMON Administration Morphine Sulfate 1 mg 11/28/21 15:00 12/10/21 16:34 Morphine 2 Mg/1 Ml Inj IV 1 mg Q4H PRN Administration Pain, Moderate (4-6) Multi-Ingred Cream/Lotion/Oil/Oint 1 applic 10/29/21 14:29 11/06/21 09:25 Mineral Oil/Petrolatum, White Ophth Oint 3.5 Gm OU 1 applic Q4HR PRN Administration Dry Eye(s) Oxycodone/Acetaminophen 1 tab 11/27/21 14:31 12/13/21 03:29 Oxycodone /Acetaminophen 5-325mg Tab PO 1 tab Q4H PRN Administration Pain, Moderate (4-6) Polyethylene Glycol 17 gm 11/20/21 12:47 12/08/21 09:54 Polyethylene Glycol 3350 17 Gm Powder PO 17 gm QDAY PRN Administration Constipation Senna/Docusate Sodium 1 tab 11/16/21 22:00 12/12/21 21:45 Sennosides/Docusate Sodium 8.6/50 Mg Tab PO 1 tab BID RAMON Administration Sodium Chloride 10 ml 10/29/21 22:00 12/12/21 21:45 Sodium Chloride 0.9% 10 Ml Flush Syringe IV 10 ml BID RAMON Administration Sodium Chloride 10 ml 10/29/21 17:04 Sodium Chloride 0.9% 10 Ml Flush Syringe IV PRN PRN LINE FLUSH
--- NOTE | 2021-12-13 09:37 | Progress Note ---
Assessment and Plan Assessment and plan: 66 YO Female with Obesity was attending [facility] services when the patient collapsed and lost consciousness. Witnesses began CPR. EMS was notified and upon arrival the patient was found to be in distress without perfusing cardiac rhythm. Patient initiated on ACLS protocol and subsequently intubated in the field and transported to ED. The patient regained spontaneous circulation during transport. She was found to have acute hypoxemic respiratory failure, septic shock suspected secondary to aspiration pneumonia, metabolic acidosis, toxic metabolic encephalopathy, shock liver, and cardiac arrest with return of perfusing cardiac rhythm after initiation of ACLS protocol. Patient initiated on sepsis protocol as well as pneumonia protocol. Patient admitted to ICU. Patient improved, extubated on 11/11 and transferred to floor on 11/19. s/p cardiac arrest, collapse at [facility], HFrEF, shock/hypotension resolved Atrial fibrillation/atrial flutter -Cardiac arrest and collapse at [facility] with ROSC -Cardiology consulted, appreciate recommendations - S/p Cardizem gtt- d/c due to low EF; now on PO Amio -s/p vasopressor support with levophed -Echocardiogram shows left ventricular systolic function severely decreased, LVEF 25 to 30%, no pericardial effusion -proBNP 5622 -Continue Lasix 20 mg twice daily, BB, spironolactone, losartan -No significant volume overload clinically Acute hypoxic respiratory failure, right pneumothorax, Angioedema (resolved), pulmonary edema -[facility] consulted, appreciate recommendations -Intubated on 10/29 and extubated on 11/11 -Bipap q HS and prn, at high risk for KOLBY with morbid obesity -NC during day -s/p right chest tube for pneumothorax -s/p steroids for angioedema -On Lasix for pulmonary edema. Transaminitis likely shocked liver - resolved Acute kidney injury likely secondary to vasomotor nephropathy, hypernatremia -Nephrology consulted, appreciate recommendations -Krishna replaced 11/05 urinary retention -FeNa 0.05 indicating pre-renal -SIERRA and hyponatremia resolved. Creatinine 1.0 on Lasix IV Shock cardiogenicsuspected sepsis -Fever was as high as 102 with a leukocytosis Blood, urine and sputum cultures negative -COVID-19 PCR negative -S/p empiric antibiotic therapy for possible pneumonia with Rocephin and azithromycin () -S/p Levophed gtt for hypotension -Fever and leukocytosis resolved -Monitor WBC and temperature curve Acute Metabolic encephalopathy, agitation/anxiety -Etiology likely from a cardiac arrest, shock and cerebral hypoperfusion CT head no acute focal parenchymal lesion in the brain -Neurology consulted, appreciate recommendations -EEG and MRI noted, Neuro recommend to cut down on sedation as possible Mental status significantly improved, currently fairly alert and oriented. Answers appropriately. Acute DVT in the left posterior tibial vein and bilateral peroneal veins, Anemia, retroperitoneal bleed -D-dimer greater than 10,000 -CTA chest with no evidence of PE -Bilateral lower extremity ultrasound positive for DVT -Heparin gtt on hold d/t anemia, received PRBC x4 -vasuclar surgery consulted, appreciate recommendations -recommended multiphasic CT angio of the abdomen and pelvis with and without contrast if H/H drops and did not recommend IVC filter at this time as the DVTs are infrapopliteal and recommends a follow-up DVT study weekly for 2 weeks. Repeat venous duplex ultrasound on 11/21 showed progression of left peroneal DVT extending into popliteal vein. Vascular surgery completed IVC filter placement on 11/22. -Trend CBC -SCDs to BLE while in bed -Transfuse hemoglobin less than 7 -Monitor for signs of bleeding -Hemoglobin stable, 8.6 Hypertension, not able be controlled Increase losartan 200 mg daily and add hydralazine as needed. Hyperglycemia ,resolved) -Avoid hypoglycemia -Hbg A1C 6.7 -SSI and lantus q hs (titrate as needed) -Accu-Cheks q. 6 Morbid obesity High risk for KOLBY On nightly BiPAP Deconditioning PT/OT Hospital Course to Date: 10/30: Intubated and sedated, on fentanyl gtt. Open eyes spontaneously but does not follow any commands. On vasopressors, titrate as tolerated for MAP above 65. Patient febrile overnight, continue empiric IV Abx, culture data and COVID PCR pending. Patient is also s/p CT placement due to spontaneous pneumothorax. 2D echo is pending and Cardiology is consulted. 10/31: Patient remains intubated and following commands. Levophed drip stopped and potassium repleted. Patient started on tube feeding. Remains in soft bilateral restraints. 11/01: RN noted ST changes on BSM and 12 lead EKG obtained which showed ST. Given Ativan 1mg for agitation as she is maxed on fentanyl drip and IV push fentanyl did not seem to help. Patient was started on CPAP this morning by RT but remained on fentanyl drip and was having periods of apnea. Plan was to retry CPAP again in the p.m. with sedation off. 11/02: Rate increased r/t hypercapnea on ABG, sedation reduced. Given kionex for hyperkalemia and was started on levophed overnight for hypotension. 11/03: Overnight patient had tachycardia and was given Cardizem and Lopressor. Lopressor was repeated in the a.m. due to tachycardia. Patient will be started on amiodarone with a bolus per cardiology. Patient started on normal saline per liter per [facility] and steroids for angioedema. Noted to have bright red blood when suctioned from oh ETT. Remains on heparin drip as H/H is stable for now. Will reevaluate. Fentanyl drip was restarted last night due to agitation. Dr. Flores updated family today 11/04: Patient was sedated on fentanyl however off sedation is able to follow commands, a.m. labs completed in the p.m. and show hyperkalemia with increased renal function studies. Nephrology, neurology consulted by [facility]. Given Kayexalate, insulin and D50 for hyperkalemia. Patient remains on amiodarone. 11/05: Patient needed to be sedated on fentanyl again to today. overnight krishna was replaced. Hyperkalemia->given kionex 60 for 5.6. Repeat K 6-> Dr. Grant informed and requested bumex, kionex, insulin, d50, calcium gluconate and sodium bicarb with repeat BMP in 2 hours which were placed. HR remains elevated. 11/06: Patient remained in atrial fibrillation/atrial flutter with heart rate in the 150s despite being on amnio drip and was given amnio bolus, Cardizem bolus and started on Cardizem drip by cardiology. Patient is on beta-blockers p.o. scheduled and to feedings changed to Nepro. Kayexalate was given in the morning by nephrology due to hyperkalemia. 11/07: Patient is only responsive to mild stimuli, precedex added in an attempt to wean off fentanyl gtt to better assess her mental status. Neurology also on consult, pending MRI and EEG. Patient remains in Aflutter this am, HR in the 80 to 90s, still on amiodarone and heparin gtt. 11/08: Fentanyl gtt is off, only on precedex gtt. Patient is still not following any commands. MRI brain and EEG completed. Neuro recommendations noted, sedatives agents decreased. FWF added for hypernatremia and low K repleted, repeat labs ordered. Placed a call and spoke with patient's daughter, Eva Brown . She was updated on patient's conditions and status. All questions and concerns were voiced at this time. 11/09: Patient is awake and alert this am, following commands and appropriate. Remains on precedex gtt, plan for possible PST today. Hypertensive overnight, meds adjusted by Cardio and PRN Hydralazine added for SBP greater than 160. CT dislodged overnight, CXR is stable with no significant change. F/U CXR in the am. Patient's daughter, Eva Brown, visited with patient. She was updated on patient's status and goal of care for today. All questions and concerns were voiced at this time. 11/10: Mentation remains intact, still on precedex gtt. This am CXR noted still with fluid overload s/p X1 dose of IV lasix, good response from IV lasix overnight. Hypernatremia improved, D5W d/dayday. Still with persistent hypokalemia, continue electrolytes replacement and frequent lab check. Daily IV lasix and aldactone added by Cardio. Patient is also with persistent low grade fevers overnight, leukocytosis with mild improvement this am. Will get a repeat sputum culture, hold off on IV abx for now. Consider ID consult if fevers and leukocytosis persist. Patient tolerated PST X4hrs yesterday. PST again today, plan to wean to extubate if tolerated. 11/11: IAM overnight. Off precedex gtt and tolerated PST this am. Plan to wean to extubate today. Additional IV lasix given, plan to keep patient at a net negative balance for better lung compliance. F/U CXR in the am. K improved this am, repeat BMP this afternoon since diuresing. Remains with low grade fevers, leukocytosis downtrending, will continue to monitor. Speech/PT/OT ordered 11/12: S/p extubation, now stable on 3L NC. This am CXR noted with no significant changes, lasix changed to IV X4days BID. Drop in H&H this am, and Lt. flank ecchymosis noted. Heparin gtt on hold for now and orders placed for 1 unit of PRBCs and Ct Abd/Pelvis w/o con to r/o retroperitoneal bleed. Pending speech swallow eval, keep patient NPO for now. Patient is stable for IMCU status 11/13: Patient with increased WOB and tachycardia this am, patient was placed on Bipap and precedex gtt was resumed. CXR with mild improvement. CT Abd/Pelvis also reviewed large hematomas noted at the Lt. retroperitoneum and left posterior lateral abdominal wall. Heparin gtt is already on hold, patient is hemodynamically stable. Vascular Surgery consulted for possible IVC filter eval. Patient s/p 2units of PRBCs, will continue to trend H&H and transfuse if hbg is less than 7. Worsening renal function this am, IF diuretic on hold for now. Patient is also febrile with spike in wbcs most likely reactive to bleed, will panculture and hold off on IV Abx for now. Patient also failed speech bedside swallow eval yesterday, NGT in placed plan to resume enteral nutrition 11/14: Patient had bilateral lower extremity Doppler ultrasound and vascular surgery has recommended multiphasic CT angio of the abdomen and pelvis with and without contrast if H/H drops and does not recommend IVC filter at this time as the DVTs are infrapopliteal and recommends a DVT study weekly for 2 weeks. FWF 250 q4 ml per nephro. Started on as needed Xanax and p.o. amiodarone. She did not pass her ST evaluation today. Will be transferred to [facility]. 11/15: Resting comfortably on encounter. Speech cleared for pureed diet. Remains on 3l satting 98 % on bedside encounter. Does not appear to be in respiratory distress. Will continue to hold AC, No ivc filter planned at this time. qweekly doppler to monitor for migration of DVT per vascular. If demonstrated, will consider IVC filter. CBC ordered for tomorrow, will continue monitoring in light of retroperitoneal hematoma. FWF increased by nephrology to 350cc q4hr d/t hypernatremia. UOP/renal function both improved. D/w cardiology, will continue amiodorone an additional 24hrs. Plan to change dosing of metoprolol. Continue to wean off of precedex. Continue xanax scheduled for anxiety. physical therapy recs noted, fernanda / ltac will discuss with CM. Continue IMCU monitoring. 11/16: Pulmonary congestion this AM. CXR ordered. Lasix 40 mg IV x 1 order this AM. Will monitor for 24 hrs. potential downgrade to medical floor tomorrow. 11/17: Persisting pulmonary congestion, was on bipap overnight into this AM. Will order additional lasix 40 mg IV x 2. CXR ordered for AM. Possible downgrade to floor tomorrow. Anticipate d/c sunday. 11/18: Patient seen and examined, continue weaning, will continue diuresis BID, discussed with daughter. 11/19: Patient seen and examined this morning doing well no acute distress noted. Lasix was increased to twice daily to 20 mg IV. Clinically improving. Patient will be transferred to telemetry today can be switched to Lasix p.o. twice daily in a.m. She has her weekly Doppler of lower extremity tomorrow vascular is following for this. She was taken off anticoagulation secondary to retroperitoneal bleed., The anticoagulation was started initially for atrial fibrillation and an infrapopliteal DVT. During her hospital stay she had a prolonged ventilator management and was successfully weaned off. She also received a total of 4 units of packed red blood cell. Hemoglobin has remained stable. Anticipate discharge in next 48 hours if continues to clinically stay stable. : Transferred from ICU on 11/19. Progressive improving. Currently awake and oriented. O2 weaned to 4 L. Hemodynamically stable. BP control being optimized. MiraLAX for constipation. Hemoglobin stable on the heparin infusion, being monitored closely with history of retroperitoneal bleed. 11/21: Patient remains mostly bedridden. She is awake and oriented on 2 L of O2. Repeat ultrasound showed extension of left peroneal DVT into popliteal vein. Heparin was discontinued for significant retroperitoneal bleed and off anticoagulation since. Vascular surgery plan for placement of IVC filter tomorrow. Patient is chest pains, palpitations, hemoptysis. She has some cough. Left lower extremity pain likely from DVT better today. Discussed with the patient, nursing staff and vascular surgery. 11/22: The infrapopliteal vein thrombosis has propagated to the left popliteal vein. Vascular surgery to perform IVC filter placement today. 11/23: Vascular surgery placed IVC filter yesterday. Continue metoprolol 100 mg p.o. twice daily, Aldactone 25 mg p.o. daily and losartan 25 mg p.o. daily. Patient still requiring BiPAP (IPAP18, EPAP8) with FiO2 of 30%. Continue to wean oxygen per pulmonary recommendations. Nurse reports patient is having vaginal bleeding. We will check serial CBC and pelvic ultrasound 11/24: I discussed with cardiology yesterday the need for a LifeVest. LifeVest is ordered and pending. Patient is s/p IVC filter placement. Continue metoprolol 100 mg p.o. twice daily, Aldactone 25 mg p.o. daily and losartan 25 mg p.o. shaan ly. Patient still requiring BiPAP (IPAP18, EPAP8) with FiO2 of 30%. Continue to wean oxygen per pulmonary recommendations. No further reports of vaginal bleeding. Pelvic ultrasound negative 11/25: Awaiting for LifeVest. Patient is s/p IVC filter placement. Continue metoprolol 100 mg p.o. twice daily, Aldactone 25 mg p.o. daily and losartan 25 mg p.o. daily. Patient still requiring BiPAP (IPAP18, EPAP8) with FiO2 of 30%. Continue to wean oxygen per pulmonary recommendations. 11/26: Physical therapy recommends subacute rehab. Still awaiting LifeVest. Patient is s/p IVC filter placement. Continue metoprolol 100 mg p.o. twice daily, Aldactone 25 mg p.o. daily and losartan 25 mg p.o. daily. Patient still requiring BiPAP (IPAP18, EPAP8) with FiO2 of 30% at night. Continue to wean oxygen per pulmonary recommendations. Patient currently with 2 L O2. 11/27: Physical therapy recommends subacute rehab. Patient has a LifeVest. Patient's left lower extremity pain likely related to DVT. Continue pain control. Continue metoprolol 100 mg p.o. twice daily, Aldactone 25 mg p.o. daily and losartan 25 mg p.o. daily. Patient still requiring BiPAP (IPAP18, EPAP8) with FiO2 of 30% at night. 11/28: Physical therapy recommends subacute rehab. Patient has a LifeVest. Patient continues to complain of left lower extremity pain which makes it very difficult for ambulation. Continue Percocet for pain control. Add neurontin for possible neuropathy. Etiology is likely secondary to DVT. Continue metoprolol 100 mg p.o. twice daily, Aldactone 25 mg p.o. daily and losartan 25 m g p.o. daily. Patient still requiring BiPAP (IPAP18, EPAP8) with FiO2 of 30% at night. Repeated Doppler US of LLE and will ask vascular surgery to revisit. 11/29; worsening lower extremity DVTs, vascular following, on heparin drip 11/30; low-grade fever, leukocytosis, shortness of breath, chest x-ray possible left-sided pneumonia/possible healthcare associated pneumonia Blood cultures already sent, empiric antibiotic cefepime[renal dose confirmed with pharmacist] ID consult if needed 12/01; gram-positive bacteremia preliminary, add vancomycin 1 dose, repeat cultures, consult ID Worsening renal function, nephrology initiated hemodialysis today, patient is critically ill, very poor prognosis, with multiple comorbidities And critical issues. [employer] Equipment [employer] recommendations noted and appreciated 12/02; Gram positive bacteremia/possible HCAP and sepsis, on cefepime and 1 dose Vanco. Nephrology initiated hemodialysis, ID consult. Patient is hypotensive, pulmonary critical recommended transfer to ICU and start vasopressors for close observation overnight. Dr. Padron discussed with patient's daughter over patient's telephone and discussed in detail patient's condition, new developments sepsis, renal failure on hemodialysis anticoagulation for DVT and severe cardiomyopathy, also discussed poor prognosis, and the plans of transferring the patient to ICU for close observation. Many questions, and answered all of them. dr. Padron also discussed with granddaughter at the bedside and patient was moved to ICU, She had numerous questions answered all of them and discussed the current con dition prognosis and treatment plan. She verbalized understanding 12/03: Patient was transferred to ICU yesterday evening for hypotension however she did not need to be started on any vasopressin therapy. Patient is on p.o. midodrine and all her antihypertensives have been held. She also received albumin bolus. Patient will be transferred to the floor today. Still complains of bilateral lower extremity pain. Patient is on cefepime and she is scheduled for dialysis today. 12/04: Some complaint of leg pain. Percocet given for pain control. Patient is very deconditioned, will need aggressive PT. Will work on d/c planning with cm. 12/05: Patient does not appear to be in distress this AM. tachycardic hr on encounter and overnight, was given diltiazem by armature bander. Cardiology initiated metoprolol and amiodorone on patient this morning. She denies any pain except for discomfort in left lower extremity. Controlled with percocet. She also states that she does not have any urine output and has been constipated. Will order bowel regimen. Discharge needs discussed with CM which include Lifevest, BIPAP for nightly use, and possible set up for dialysis. She was visiting on a visa to the from [place] however is technically a citizen of [place] which makes placement a continued challenge. 12/06: Case management reports patient will need LifeVest, walker, CPAP and arrangements for outpatient hemodialysis. However, patient is uninsured. I discussed with the daughter Eva plans for home hospice. Eva reports that she is willing to have hospice to obtain additional resources but is not wanting palliative care/comfort measures. 12/07: Awaiting LifeVest and outpatient HD arrangements. I d/w CM discharge planning. Pt still with heparin drip but amiodarone changed to p.o. 200mg BID. Cont. Metoprolol 50mg BID. Hold LAYO and ARB for renal fxn. Patient for outpatient ischemic evaluation per Cardiology. Leukocytosis likely related to retroperitoneal hematoma. ID wants to monitor off abx. 12/08: Awaiting LifeVest and outpatient HD arrangements. I d/w CM discharge p ximena. Pt still with heparin drip. Await cardiology recommendations to transition to p.o. anticoagulation. Patient for outpatient ischemic evaluation per Cardiology. Leukocytosis likely related to retroperitoneal hematoma. Continue to monitor off antibiotics. Continue volume management per nephrology with hemodialysis 12/09: Patient with PermCath placement today. Nephrology reports patient hypotensive during hemodialysis and started 10 mg of midodrine for hypotension. Losartan discontinued. Continue to obtain daily weights and Strict I/O's. Renally dose medications and avoid nephrotoxic agents. Patient for outpatient ischemic evaluation per Cardiology. Leukocytosis likely related to retroperitoneal hematoma. Continue to monitor off antibiotics. Awaiting LifeVest and outpatient HD arrangements. 12/10: Continue hemodialysis per nephrology recommendations. We will discontinue heparin drip and start Eliquis 5 mg p.o. twice daily for anticoagulation. Blood pressure appears to be improved. Continue midodrine. Continue to obtain daily weights and Strict I/O's. Renally dose medications and avoid nephrotoxic agents. Patient for outpatient ischemic evaluation per Cardiology. Leukocytosis likely related to retroperitoneal hematoma. Continue to monitor off antibiotics. Awaiting LifeVest and outpatient HD arrangements. 12/11: Cardiology plans for Lexiscan in a.m. Continue hemodialysis per nephrology recommendations. We will discontinue heparin drip and start Eliquis 5 mg p.o. twice daily for anticoagulation. Blood pressure appears to be improved. Continue midodrine. Continue to obtain daily weights and Strict I/O's. Renally dose medications and avoid nephrotoxic agents. 12/12: Lexiscan this morning per cardiology. Continue hemodialysis per nephrology recommendations. Continue Eliquis for anticoagulation. Continue midodrine. Continue to obtain daily weights and Strict I/O's. Renally dose medications and avoid nephrotoxic agents. History Interval history: Seen and examined the patient at the bedside Patient's chart and medications reviewed Patient is working with physical therapy Complains of generalized weakness Daughter at the bedside Hospitalist Physical - Constitutional Vitals: Temp Pulse Resp BP Pulse Ox 97.6 F 101 H 19 120/72 93 12/13/21 03:53 12/13/21 03:53 12/13/21 03:53 12/13/21 03:53 12/13/21 03:53 General appearance: Present: no acute distress, well-nourished, obese (Morbidly obese), other (Minimally communicative) - EENT Eyes: Present: PERRL, EOM intact - Neck Neck: Present: supple, normal ROM - Respiratory Respiratory effort: normal Respiratory: bilateral: diminished, negative: rales, rhonchi, wheezing - Cardiovascular Rhythm: regular Heart Sounds: Present: S1 & S2 - Extremities Extremities: no ischemia, No edema - Abdominal General gastrointestinal: soft, non-tender, non-distended, normal bowel sounds - Integumentary Integumentary: Present: clear, warm - Psychiatric Psychiatric: appropriate mood/affect, cooperative - Neurologic Neurologic: moves all extremities HEART Score - HEART Score Troponin: Troponin T 1.150 ng/mL (0.00-0.029) H* D 10/29/21 22:34 Results - Labs CBC & Chem 7: 12/13/21 06:19 12/12/21 05:15 Labs: Laboratory Last Values WBC 12.9 K/mm3 (4.5-11.0) H 12/13/21 06:19 RBC 2.54 M/mm3 (3.65-5.03) L 12/13/21 06:19 Hgb 7.2 gm/dl (10.1-14.3) L 12/13/21 06:19 Hct 22.8 % (30.3-42.9) L 12/13/21 06:19 MCV 90 fl (79-97) 12/13/21 06:19 MCH 28 pg (28-32) 12/13/21 06:19 MCHC 32 % (30-34) 12/13/21 06:19 RDW 18.0 % (13.2-15.2) H 12/13/21 06:19 Plt Count 178 K/mm3 (140-440) 12/13/21 06:19 Lymph % (Auto) 11.1 % (13.4-35.0) L 11/29/21 13:51 [place] % (Auto) 15.5 % (0.0-7.3) H 11/29/21 13:51 Eos % (Auto) 1.0 % (0.0-4.3) 11/29/21 13:51 Baso % (Auto) 0.6 % (0.0-1.8) 11/29/21 13:51 Lymph # (Auto) 1.4 K/mm3 (1.2-5.4) 11/29/21 13:51 [place] # (Auto) 2.0 K/mm3 (0.0-0.8) H 11/29/21 13:51 Eos # (Auto) 0.1 K/mm3 (0.0-0.4) 11/29/21 13:51 Baso # (Auto) 0.1 K/mm3 (0.0-0.1) 11/29/21 13:51 Add Manual Diff Complete 12/10/21 05:22 Total Counted 100 12/10/21 05:22 Seg Neutrophils % 71.8 % (40.0-70.0) H 11/29/21 13:51 Seg Neuts % (Manual) 73.0 % (40.0-70.0) H 12/10/21 05:22 Band Neutrophils % 12.0 % 12/10/21 05:22 Lymphocytes % (Manual) 7.0 % (13.4-35.0) L 12/10/21 05:22 Reactive Lymphs % (Man) 0 % 12/10/21 05:22 Monocytes % (Manual) 1.0 % (0.0-7.3) 12/10/21 05:22 Eosinophils % (Manual) 1.0 % (0.0-4.3) 12/10/21 05:22 Basophils % (Manual) 2.0 % (0.0-1.8) H 12/10/21 05:22 Metamyelocytes % 0 % 12/10/21 05:22 Myelocytes % 4.0 % 12/10/21 05:22 Promyelocytes % 0 % 12/10/21 05:22 Blast Cells % 0 % 12/10/21 05:22 Nucleated RBC % 1.0 % (0.0-0.9) H 12/10/21 05:22 Seg Neutrophils # 9.3 K/mm3 (1.8-7.7) H 11/29/21 13:51 Seg Neutrophils # Man 10.6 K/mm3 (1.8-7.7) H 12/10/21 05:22 Band Neutrophils # 1.7 K/mm3 12/10/21 05:22 Lymphocytes # (Manual) 1.0 K/mm3 (1.2-5.4) L 12/10/21 05:22 Abs React Lymphs (Man) 0.0 K/mm3 12/10/21 05:22 Monocytes # (Manual) 0.1 K/mm3 (0.0-0.8) 12/10/21 05:22 Eosinophils # (Manual) 0.1 K/mm3 (0.0-0.4) 12/10/21 05:22 Basophils # (Manual) 0.3 K/mm3 (0.0-0.1) H 12/10/21 05:22 Metamyelocytes # 0.0 K/mm3 12/10/21 05:22 Myelocytes # 0.6 K/mm3 12/10/21 05:22 Promyelocytes # 0.0 K/mm3 12/10/21 05:22 Blast Cells # 0.0 K/mm3 12/10/21 05:22 WBC Morphology Not Reportable 12/10/21 05:22 Hypersegmented Neuts Not Reportable 12/10/21 05:22 Hyposegmented Neuts Not Reportable 12/10/21 05:22 Hypogranular Neuts Not Reportable 12/10/21 05:22 Smudge Cells Not Reportable 12/10/21 05:22 Toxic Granulation Not Reportable 12/10/21 05:22 Toxic Vacuolation Not Reportable 12/10/21 05:22 Dohle Bodies Not Reportable 12/10/21 05:22 Pelger-Huet Anomaly Not Reportable 12/10/21 05:22 Manny Rods Not Reportable 12/10/21 05:22 Platelet Estimate Consistent w auto 12/10/21 05:22 Clumped Platelets Not Reportable 12/10/21 05:22 Plt Clumps, EDTA Not Reportable 12/10/21 05:22 Large Platelets Not Reportable 12/10/21 05:22 Giant Platelets Not Reportable 12/10/21 05:22 Platelet Satelliting Not Reportable 12/10/21 05:22 Plt Morphology Comment Not Reportable 12/10/21 05:22 RBC Morphology Not Reportable 12/10/21 05:22 Dimorphic RBCs Not Reportable 12/10/21 05:22 Polychromasia Not Reportable 12/10/21 05:22 Hypochromasia 1+ 12/10/21 05:22 Poikilocytosis Not Reportable 12/10/21 05:22 Anisocytosis 1+ 12/10/21 05:22 Microcytosis Not Reportable 12/10/21 05:22 Macrocytosis Not Reportable 12/10/21 05:22 Spherocytes Not Reportable 12/10/21 05:22 Pappenheimer Bodies Not Reportable 12/10/21 05:22 Sickle Cells Not Reportable 12/10/21 05:22 Target Cells Not Reportable 12/10/21 05:22 Tear Drop Cells Not Reportable 12/10/21 05:22 Ovalocytes Not Reportable 12/10/21 05:22 Helmet Cells Not Reportable 12/10/21 05:22 Maradiaga-Oketo Bodies Not Reportable 12/10/21 05:22 [place] Rings Not Reportable 12/10/21 05:22 [place] Cells Not Reportable 12/10/21 05:22 Bite Cells Not Reportable 12/10/21 05:22 Crenated Cell Not Reportable 12/10/21 05:22 Elliptocytes Not Reportable 12/10/21 05:22 Acanthocytes (Spur) Not Reportable 12/10/21 05:22 Rouleaux Not Reportable 12/10/21 05:22 Hemoglobin C Crystals Not Reportable 12/10/21 05:22 Schistocytes Not Reportable 12/10/21 05:22 Malaria parasites Not Reportable 12/10/21 05:22 Magdy Bodies Not Reportable 12/10/21 05:22 Hem Pathologist Commnt No 12/10/21 05:22 PT 13.4 Sec. (12.2-14.9) 12/11/21 13:08 INR 0.92 (0.87-1.13) 12/11/21 13:08 APTT 116.8 Sec. (24.2-36.6) H* 12/11/21 13:08 D-Dimer > 99227 ng/mlDDU (0-234) H 10/30/21 Unknown Heparin Anti-Xa Level Cancelled 12/11/21 13:08 ABG pH 7.333 pH Units (7.350-7.450) L 12/12/21 14:10 ABG pCO2 50.1 mm Hg 12/12/21 14:10 ABG pO2 57.0 mm Hg (80.0-90.0) L 12/12/21 14:10 ABG HCO3 26.0 mmol/L (20.0-26.0) 12/12/21 14:10 ABG O2 Saturation 88.0 % (95.0-99.0) L 12/12/21 14:10 ABG O2 Content 9.1 (0.0-44) 12/12/21 14:10 ABG Base Excess 0.0 mmol/L (-2.0-3.0) 12/12/21 14:10 ABG Hemoglobin 7.6 gm/dl (12.0-16.0) L 12/12/21 14:10 ABG Carboxyhemoglobin 2.2 % (0.0-5.0) 12/12/21 14:10 ABG Methemoglobin 0.7 % (0.0-1.5) 12/12/21 14:10 Oxyhemoglobin 85.4 % (95.0-99.0) L 12/12/21 14:10 FiO2 21 % 12/12/21 14:10 Sodium 129 mmol/L (137-145) L 12/12/21 05:15 Potassium 5.1 mmol/L (3.6-5.0) H 12/12/21 05:15 Chloride 95.8 mmol/L (98-107) L 12/12/21 05:15 Carbon Dioxide 21 mmol/L (22-30) L 12/12/21 05:15 Anion Gap 17 mmol/L 12/12/21 05:15 BUN 48 mg/dL (7-17) H 12/12/21 05:15 Creatinine 2.9 mg/dL (0.6-1.2) H 12/12/21 05:15 Estimated GFR 20 ml/min 12/12/21 05:15 BUN/Creatinine Ratio 17 % 12/12/21 05:15 Glucose 88 mg/dL (65-100) 12/12/21 05:15 POC Glucose 125 mg/dL (70-105) H 12/12/21 21:25 Hemoglobin A1c 6.7 % (4-6) H 10/31/21 04:30 Lactic Acid 0.70 mmol/L (0.7-2.0) 10/31/21 15:45 Calcium 9.0 mg/dL (8.4-10.2) 12/12/21 05:15 Phosphorus 5.20 mg/dL (2.5-4.5) H 12/02/21 03:22 Magnesium 1.60 mg/dL (1.7-2.3) L 11/19/21 14:38 Ferritin 208.4 ng/mL (10.0-200.0) H 10/30/21 Unknown Total Bilirubin < 0.20 mg/dL (0.1-1.2) 11/06/21 02:35 AST 21 units/L (5-40) 11/06/21 02:35 ALT 77 units/L (7-56) H 11/06/21 02:35 Alkaline Phosphatase 84 units/L (35-129) 11/06/21 02:35 Ammonia 31.0 umol/L (25-60) 10/29/21 15:10 Lactate Dehydrogenase 469 units/L (91-180) H 10/30/21 Unknown Troponin T 1.150 ng/mL (0.00-0.029) H* D 10/29/21 22:34 C-Reactive Protein 13.40 mg/dL (0.00-1.30) H 10/30/21 Unknown Total Protein 6.3 g/dL (6.3-8.2) 11/06/21 02:35 Albumin 3.0 g/dL (3.9-5) L 11/06/21 02:35 Albumin/Globulin Ratio 0.9 % 11/06/21 02:35 Triglycerides 68 mg/dL (2-149) 10/29/21 19:40 Cholesterol 98 mg/dL (50-199) 10/29/21 19:40 LDL Cholesterol Direct 43 mg/dL (50-130) L 10/29/21 19:40 HDL Cholesterol 50 mg/dL (40-59) 10/29/21 19:40 Cholesterol/HDL Ratio 1.96 % 10/29/21 19:40 Procalcitonin 61.95 ng/mL (<0.15) 10/30/21 Unknown TSH 3.080 mlU/mL (0.270-4.200) 10/29/21 15:10 Urine Color Yellow (Yellow) 11/13/21 08:30 Urine Turbidity Slightly-cloudy (Clear) 11/13/21 08:30 Urine pH 6.0 (5.0-7.0) 11/13/21 08:30 Ur Specific [place] 1.010 (1.003-1.030) 11/13/21 08:30 Urine Protein <15 mg/dl mg/dL (Negative) 11/13/21 08:30 Urine Glucose (UA) Neg mg/dL (Negative) 11/13/21 08:30 Urine Ketones Tr mg/dL (Negative) 11/13/21 08:30 Urine Blood Sm (Negative) 11/13/21 08:30 Urine Nitrite Neg (Negative) 11/13/21 08:30 Urine Bilirubin Neg (Negative) 11/13/21 08:30 Urine Urobilinogen < 2.0 mg/dL (<2.0) 11/13/21 08:30 Ur Leukocyte Esterase Neg (Negative) 11/13/21 08:30 Urine WBC (Auto) < 1.0 /HPF (0.0-6.0) 11/13/21 08:30 Urine RBC (Auto) < 1.0 /HPF (0.0-6.0) 11/13/21 08:30 U Epithel Cells (Auto) < 1.0 /HPF (0-13.0) 11/13/21 08:30 Urine Mucus Few /HPF 10/29/21 18:15 Urine Eosinophils None seen (None Seen) 11/04/21 Unknown Urine Creatinine 190.9 mg/dL (0.1-20.0) H 11/04/21 Unknown Protein/Creatinin Ratio 0.90 11/04/21 Unknown Urine Sodium 10 mmol/L 11/04/21 Unknown Urine Total Protein 172 mg/dL (5-11.8) H 11/04/21 Unknown Salicylates < 0.3 mg/dL (2.8-20.0) L 10/29/21 15:10 Urine Opiates Screen Negative 10/29/21 18:15 Urine Methadone Screen Negative 10/29/21 18:15 Acetaminophen 5.0 ug/mL (10.0-30.0) L 10/29/21 15:10 Ur Barbiturates Screen Negative 10/29/21 18:15 Ur Phencyclidine Scrn Negative 10/29/21 18:15 Ur Amphetamines Screen Negative 10/29/21 18:15 U Benzodiazepines Scrn Negative 10/29/21 18:15 Urine Cocaine Screen Negative 10/29/21 18:15 U Marijuana (THC) Screen Negative 10/29/21 18:15 Drugs of Abuse Note Disclamer 10/29/21 18:15 Plasma/Serum Alcohol < 0.01 % (0-0.07) 10/29/21 15:10 Coronavirus (PCR) Negative (Negative) 10/30/21 Unknown Hepatitis A IgM Ab Non-reactive (NonReactive) 12/01/21 19:36 Hep Bs Antigen Non-reactive (Negative) 12/01/21 19:36 Hep B Core IgM Ab Non-reactive (NonReactive) 12/01/21 19:36 Hepatitis C Antibody Non-reactive (NonReactive) 12/01/21 19:36 Blood Type O POSITIVE 11/12/21 04:15 Antibody Screen Negative 11/12/21 04:15 Crossmatch See Detail 11/12/21 04:15 Krishna/IV: Voiding Method External Female Catheter Active Medications - Current Medications Current Medications: Generic Name Dose Route Start Last Admin Trade Name Freq PRN Reason Stop Dose Admin Acetaminophen 650 mg 10/29/21 17:04 11/12/21 22:53 Acetaminophen 650 Mg Rect Supp ID 650 mg Q6H PRN Administration Pain MILD(1-3)/Fever >100.5/NIEVES Acetaminophen 650 mg 11/19/21 16:35 12/12/21 15:55 Acetaminophen 325 Mg Tab PO 650 mg Q6HR PRN Administration PAIN Albumin Human 50 gm 12/02/21 11:00 12/02/21 11:55 Albumin Human 25% (25 Gm/100 Ml) Inj IV 50 gm ZACH PRN Administration Hypotension Alprazolam 0.25 mg 11/14/21 14:29 12/11/21 09:16 Alprazolam 0.25 Mg Tab PO 0.25 mg Q8H PRN Administration Anxiety Amiodarone HCl 200 mg 12/10/21 10:00 12/12/21 14:03 Amiodarone 200 Mg Tab PO Not Given DAILY RAMON Apixaban 5 mg 12/12/21 10:00 12/12/21 21:45 Apixaban 5 Mg Tab PO 5 mg Q12HR RAMON Administration Protocol Docusate Sodium 100 mg 11/18/21 15:00 12/12/21 21:45 Docusate Sodium 100 Mg Cap PO 100 mg BID RAMON Administration Epoetin [place]-epbx 10,000 unit 12/06/21 10:00 12/07/21 15:30 Epoetin [place]-Epbx 10,000 Unit/1 Ml Vial IV 10,000 unit ZACH PRN Administration hemodialysis Famotidine 10 mg 11/06/21 10:00 12/12/21 21:49 Famotidine 10 Mg Tab PO 10 mg BID RAMON Administration Gabapentin 100 mg 11/28/21 14:00 12/13/21 05:32 Gabapentin 100 Mg Cap PO 100 mg Q8HR RAMON Administration Hydrophilic Ointment 1 applic 10/29/21 14:29 11/09/21 08:51 Lip Therapy Vaseline TP 1 applic Q2HR PRN Administration Dry Lips Sodium Chloride 100 mls @ 999 mls/hr 12/01/21 14:44 Nacl 0.9% IV ZACH PRN Hypotension Insulin Human Lispro 0 unit 11/25/21 22:00 12/12/21 21:50 Insulin Lispro 100 Unit/Ml SUB-Q Not Given ACHS RAMON Protocol Lactulose 20 gm 11/18/21 14:43 12/06/21 15:26 Lactulose 20 Gm/30 Ml Oral Liqd PO 20 gm Q6H PRN Administration Constipation Melatonin 10 mg 11/22/21 17:31 12/10/21 22:19 Melatonin 5 Mg Tab PO 10 mg QHS PRN Administration Sleep Metoprolol Tartrate 100 mg 12/07/21 11:00 12/12/21 21:45 Metoprolol Tartrate 50 Mg Tab PO 100 mg BID RAMON Administration Midodrine 10 mg 12/01/21 12:00 12/12/21 15:54 Midodrine 5 Mg Tab PO 10 mg TID@0800,1200,1600 RAMON Administration Morphine Sulfate 1 mg 11/28/21 15:00 12/10/21 16:34 Morphine 2 Mg/1 Ml Inj IV 1 mg Q4H PRN Administration Pain, Moderate (4-6) Multi-Ingred Cream/Lotion/Oil/Oint 1 applic 10/29/21 14:29 11/06/21 09:25 Mineral Oil/Petrolatum, White Ophth Oint 3.5 Gm OU 1 applic Q4HR PRN Administration Dry Eye(s) Oxycodone/Acetaminophen 1 tab 11/27/21 14:31 12/13/21 03:29 Oxycodone /Acetaminophen 5-325mg Tab PO 1 tab Q4H PRN Administration Pain, Moderate (4-6) Polyethylene Glycol 17 gm 11/20/21 12:47 12/08/21 09:54 Polyethylene Glycol 3350 17 Gm Powder PO 17 gm QDAY PRN Administration Constipation Senna/Docusate Sodium 1 tab 11/16/21 22:00 12/12/21 21:45 Sennosides/Docusate Sodium 8.6/50 Mg Tab PO 1 tab BID RAMON Administration Sodium Chloride 10 ml 10/29/21 22:00 12/12/21 21:45 Sodium Chloride 0.9% 10 Ml Flush Syringe IV 10 ml BID RAMON Administration Sodium Chloride 10 ml 10/29/21 17:04 Sodium Chloride 0.9% 10 Ml Flush Syringe IV PRN PRN LINE FLUSH Nutrition/Malnutrition Assess - Dietary Evaluation Nutrition/Malnutrition Findings: Nutrition Notes Start: 10/30/21 0 9:50 Freq: Status: Active Protocol: Document 12/05/21 17:37 MEENU (Rec: 12/05/21 17:55 MEENU [id number]) Nutrition Notes Initial or Follow up Brief Note Current Diagnosis Acute Kidney Injury,Sepsis, Hypertension Other Pertinent Diagnosis s/p cardiac arrest, anemia Current Diet [facility]al -[facility] Soft- Diet + D Supplement (since D 12/02). Height 5 ft 10 in Weight 114.8 kg Velma Body Weight (kg) 68.18 BMI 36.3 Weight change and time frame No body weight change reported in 3 days. Weight Status Obese Subjective/Other Information RD consult for routine F/U on Dietary tolerance. Pt's PO intake of meals has improved to 75% and well tolerated, according to ADL notes. Pt still receiving vasopressors. Percent of energy/protein needs met: Prescribed Renal Diet provides for energy/protein needs (2, 072 Kcal/77 g) during LOS; additionally, Dietary Supplements will compensate for possible poor or insufficient PO intake of meals with 425 Kcal and 19 g of protein. Current % PO Good (75-100%) #1 Nutrition Diagnosis Inadequate oral intake Comments: Pt's PO intake of meals has been at 75%, and well tolerated, according to ADL notes. Diet advanced to Renal - mechanical soft-. Diagnosis Progress(for reassessment Improved documentation) Is patient on ventilator? No Is Patient Ambulatory and/or Out of Bed No REE-([facility]-confined to bed) 2120.952 Kcal/Kg value to use for calculation 14 Approximate Energy Requirements Using 1607 kcal/Kg Calculation Used for Recommendations Kcal/kg Additional Notes Protein: >1.2 g/Kg AdjBW; >110 g/day. Fluids: 1-1.5 L/day, or as per MD. Nutrition Intervention Change Diet Order: Continue Renal -mechanical soft- Diet. Add Supplement/Snack (indicate name/kcal Nepro once daily (vanilla) /protein ) Provides kCal: 425 Provides Protein (gm) 19 Goal #1 Compensate, through dietary supplementation, for possible poor or insufficient PO intake of meals during LOS. Goal #2 Facilitate PO intake of meals with mechanical modification during LOS. Goal #3 Maintain body weight within +/ -3% of admission body weight during LOS. Follow-Up By: 12/13/21 Additional Comments Continue monitoring food tolerance, %PO intake of meals , and BM.
[2021-12-13] MEDS: DOCUSATE SODIUM 100 MG CAP PO SCH ×2 (11:47→22:10)
[2021-12-13] MEDS: AMIODARONE 200 MG TAB PO SCH ×2 (11:47→22:11)
[2021-12-13] MEDS: MIDODRINE 5 MG TAB PO SCH ×3 (11:48→22:08)
[2021-12-13] MEDS: SENNOSIDES/DOCUSATE SODIUM 8.6/50 MG TAB PO SCH ×2 (11:48→22:10)
[2021-12-13] MEDS: APIXABAN 5 MG TAB PO SCH ×2 (11:48→22:10)
[2021-12-13] MEDS: METOPROLOL TARTRATE 50 MG TAB PO SCH ×2 (11:48→22:10)
[2021-12-13] MEDS: FAMOTIDINE 10 MG TAB PO SCH ×2 (11:48→22:11)
--- NOTE | 2021-12-13 16:08 | Progress Note ---
Assessment and Plan Patient is a 66-year-old female with unknown past medical history brought into the ED following outside of hospital cardiac arrest thought to be PEA with thought to have downtime of 7 to 9 minutes however details are unclear S/P PEA cardiopulmonary arrest- Acute hypoxic respiratory failure-pulm following Septic shock Bacteremia Pneumonia Acute renal failure on HD-nephrology following Atrial flutter w/ RVR Pneumothorax- s/p CT Acute bilateral DVT-on Heparin gtt Hypokalemia Transaminitis Retroperitoneal Hematoma s/p IVC Echo 10/30/2021-technically difficult study due to body habitus. EF 25 to 30%. Right ventricular systolic function is normal. No pericardial effusion Lexiscan MPI stress test 12/13/2021-technically difficult study but grossly normal stress MPI. EF of 37% Plan: Previously on metoprolol 100 mg p.o. twice daily, aldactone 25mg PO QD, and losartan 25 mg p.o. daily Continue metoprolol 100 mg p.o. twice daily a.m. Patient trending A. fib 100 on monitors will increase to amiodarone 200 mg p.o. twice daily. Will check LFTs in the a.m. LAYO/ARB on hold due to patient being unable to tolerate and having hypotension Volume management per nephrology due to end-stage renal disease on hemodialysis Patient currently anticoagulated on Eliquis Patient seen in conjunction with Dr. Cueto who agrees with this plan of care - Patient Problems (1) Cardiopulmonary arrest Current Visit: Yes Status: Acute (2) Hypokalemia Current Visit: Yes Status: Acute (3) Transaminitis Current Visit: Yes Status: Acute (4) Aspiration pneumonia Current Visit: Yes Status: Acute (5) Acute hypoxemic respiratory failure Current Visit: Yes Status: Acute (6) Septic shock Current Visit: Yes Status: Acute (7) Toxic metabolic encephalopathy Current Visit: Yes Status: Acute (8) Shock liver Current Visit: Yes Status: Acute Subjective Date of service: 12/13/21 Principal diagnosis: AHRF; Cardiac arrest; R. pneumothorax; pneumonia; AMS; DVT's; SIERRA; Obesity Interval history: Patient for stress test this a.m. Patient A. fib rate trending 100s short episodes into 110s. Objective Vital Signs Temp Pulse Resp BP Pulse Ox 12/13/21 10:00 99 12/13/21 09:58 127/77 12/13/21 09:57 118/80 12/13/21 09:56 117/75 12/13/21 09:55 127/72 12/13/21 09:53 128/81 12/13/21 09:23 127/90 12/13/21 03:53 97.6 F 101 H 19 120/72 93 12/13/21 00:46 98 12/13/21 00:35 71 16 100 12/12/21 23:17 98.4 F 71 20 111/60 99 12/12/21 21:49 100 12/12/21 21:20 70 16 100 12/12/21 18:59 98.7 F 57 L 20 122/71 100 - Physical Examination General: No Apparent Distress HEENT: Positive: EOMI, Normocephaly Neck: Positive: trachea midline. Negative: JVD/HJR Cardiac: Positive: irregularly irregular Lungs: Positive: Decreased Breath Sounds Neuro: Positive: Grossly Intact Abdomen: Positive: Soft Skin: Negative: Rash Musculoskeletal: No Pain Extremities: Present: upper extr. pulses, +1 Edema, warm - Labs and Meds CBC 12/13/21 Range/Units 06:19 WBC 12.9 H (4.5-11.0) K/mm3 RBC 2.54 L (3.65-5.03) M/mm3 Hgb 7.2 L (10.1-14.3) gm/dl Hct 22.8 L (30.3-42.9) % Plt Count 178 (140-440) K/mm3 - Imaging and Cardiology EKG: report reviewed, image reviewed Echo: report reviewed - Telemetry EKG Rhythm: Atrial Fibrillation - EKG Supraventricular dysrhythmia: atrial fibrillation Ventricular dysrhythmias: ventricular premature com Repolarization changes or abnormalities: nonspecific abnormality, ST segment, and/or T wave Myocardial infarction: septal [place] (old age or ind - Allied health notes Allied health notes reviewed: nursing
[2021-12-13] MEDS: MELATONIN 5 MG TAB PO PRN (22:09)
[2021-12-14] MEDS: GABAPENTIN 100 MG CAP PO SCH ×3 (06:10→22:16)
[2021-12-14 07:14] LABS: BUN/Creatinine Ratio 23; Blood Urea Nitrogen 43 mg/dL (7-17); Calcium 9.3 mg/dL (8.4-10.2); Hemolysis Index 4
[2021-12-14 07:19] LABS: Alanine Aminotransferase < 5 units/L (7-56); Bilirubin,Direct < 0.2 mg/dL (0-0.2)
[2021-12-14] MEDS: INSULIN LISPRO 100 UNIT/ML SUB-Q SCH ×4 (09:39→22:16)
[2021-12-14] MEDS: APIXABAN 5 MG TAB PO SCH ×2 (10:44→22:16)
[2021-12-14] MEDS: MIDODRINE 5 MG TAB PO SCH ×3 (10:44→17:33)
[2021-12-14] MEDS: SENNOSIDES/DOCUSATE SODIUM 8.6/50 MG TAB PO SCH ×2 (10:44→22:18)
[2021-12-14] MEDS: METOPROLOL TARTRATE 50 MG TAB PO SCH ×2 (10:44→22:17)
[2021-12-14] MEDS: DOCUSATE SODIUM 100 MG CAP PO SCH ×2 (10:44→22:15)
[2021-12-14] MEDS: AMIODARONE 200 MG TAB PO SCH ×2 (10:44→22:16)
[2021-12-14] MEDS: FAMOTIDINE 10 MG TAB PO SCH ×2 (10:45→22:21)
--- NOTE | 2021-12-14 12:14 | Progress Note ---
Assessment and Plan Patient is a 66-year-old female with unknown past medical history brought into the ED following outside of hospital cardiac arrest thought to be PEA with thought to have downtime of 7 to 9 minutes however details are unclear Assessment: S/P PEA cardiopulmonary arrest- Acute hypoxic respiratory failure-pulm following Septic shock Bacteremia Pneumonia Acute renal failure on HD-nephrology following Atrial flutter w/ RVR Pneumothorax- s/p CT Acute bilateral DVT Hypokalemia Transaminitis Retroperitoneal Hematoma s/p IVC Echo 10/30/2021-technically difficult study due to body habitus. EF 25 to 30%. Right ventricular systolic function is normal. No pericardial effusion Lexiscan MPI stress test 12/13/2021-technically difficult study but grossly normal stress MPI. EF of 37% Plan: Continue metoprolol 100 mg p.o. twice daily a.m. Continue amiodarone 200 mg p.o. twice daily. (HR 90's on tele) LFTs are stable Previously on metoprolol 100 mg p.o. twice daily, aldactone 25mg PO QD, and losartan 25 mg p.o. daily (LAYO/ARB on hold due to patient being unable to tolerate and hypotension) Volume management per nephrology (ESRD on HD) Patient currently anticoagulated on Eliquis Patient seen in conjunction with Dr. Cueto who agrees with this plan of care - Patient Problems (1) Acute hypoxemic respiratory failure Current Visit: Yes Status: Acute (2) Acute metabolic encephalopathy Current Visit: Yes Status: Acute (3) Atrial fibrillation and flutter Current Visit: Yes Status: Acute (4) Cardiac arrest Current Visit: Yes Status: Acute (5) Cardiomyopathy Current Visit: Yes Status: Acute (6) Transaminitis Current Visit: Yes Status: Acute (7) DVT (deep venous thrombosis) Current Visit: Yes Status: Acute Qualifiers: Affected thrombotic vein of extremity: peroneal (8) ESRD (end stage renal disease) on dialysis Current Visit: Yes Status: Acute (9) Septic shock Current Visit: Yes Status: Acute Subjective Date of service: 12/14/21 Principal diagnosis: AHRF; Cardiac arrest; R. pneumothorax; pneumonia; AMS; DVT's; SIERRA; Obesity Interval history: Patient resting comfortably in bed this morning; no cardiac complaints; denies SOB. Tele: Afib/Aflutter 90's Objective Vital Signs Temp Pulse Resp BP BP Pulse Ox 12/14/21 09:39 99 12/14/21 08:32 97.4 F L 67 26 H 122/72 12/14/21 03:30 97.5 F L 50 L 19 110/72 97 12/13/21 23:39 98.1 F 72 18 122/72 96 12/13/21 22:37 98 12/13/21 22:00 98 12/13/21 19:59 98.5 F 75 20 119/75 100 12/13/21 15:35 98.3 F 18 130/82 Vital Signs Temp 97.4 F L 12/14/21 08:32 Pulse 67 12/14/21 08:32 Resp 26 H 12/14/21 08:32 BP 122/72 12/14/21 08:32 Pulse Ox 99 12/14/21 09:39 Intake & Output 12/13/21 12/14/21 12/14/21 23:59 11:59 23:59 Intake Total 300 120 Output Total 500 Balance 300 -380 Weight 117.6 kg Intake: Oral 300 120 Output: Urine 500 Void 500 Other: Total, Intake Amount 300 120 Total, Output Amount 500 Voiding Method External Female Catheter # Voids Void 1 - Physical Examination General: No Apparent Distress HEENT: Positive: Normocephaly, Mucus Membranes Moist Neck: Positive: trachea midline. Negative: JVD/HJR Cardiac: Positive: irregularly irregular, S1/S2 Lungs: Positive: Decreased Breath Sounds, Rhonchi (Coarse/diminished anterior lower lobes) Neuro: Positive: Grossly Intact Abdomen: Positive: Soft, Active Bowel Sounds Skin: Negative: Rash Musculoskeletal: No Pain Extremities: Present: +2 Edema, warm - Labs and Meds Cardiac Enzymes 12/14/21 Range/Units 06:36 AST 12 (5-40) units/L Comprehensive Metabolic Panel 12/14/21 Range/Units 06:36 Sodium 132 L (137-145) mmol/L Potassium 4.7 (3.6-5.0) mmol/L Chloride 98.7 (98-107) mmol/L Carbon Dioxide 23 (22-30) mmol/L BUN 43 H (7-17) mg/dL Creatinine 1.9 H (0.6-1.2) mg/dL Glucose 97 (65-100) mg/dL Calcium 9.3 (8.4-10.2) mg/dL Direct Bilirubin < 0.2 (0-0.2) mg/dL Indirect Bilirubin 0.2 mg/dL AST 12 (5-40) units/L ALT < 5 L (7-56) units/L Alkaline Phosphatase 81 (35-129) units/L Total Protein 6.0 L (6.3-8.2) g/dL Albumin 3.0 L (3.9-5) g/dL - Imaging and Cardiology EKG: report reviewed, image reviewed Nuclear stress test: report reviewed Echo: report reviewed - Telemetry EKG Rhythm: Atrial Flutter Repolarization changes or abnormalities: nonspecific abnormality, ST segment, and/or T wave Myocardial infarction: septal [place] (old age or ind - Allied health notes Allied health notes reviewed: nursing
--- NOTE | 2021-12-14 15:01 | Treadmill Report ---
DATE OF SERVICE: 12/13/2021 NUCLEAR PERFUSION SCAN REFERRING PHYSICIAN: Hospitalist service. PROTOCOL: The patient was assessed in postabsorptive state, given 10 mCi of technetium at rest. The patient ____ imaging. The patient underwent Lexiscan stress test per standard protocol. At peak stress, the patient was given 26 mCi technetium. Shortly thereafter, the patient had stress imaging. INTERPRETATION: SPECT imaging examined carefully revealed long axis, vertical long axis, short axis views. Technically difficult study. Raw imaging reveals some GI artifact also body habitus is large. That said, grossly normal homogeneous uptake of radioisotope in all port segments. No evidence of significant fixed or reversible perfusion defect suggestive of prior infarction or ischemia. Gated wall motion reveals moderate LV dysfunction ejection fraction at 37%. CONCLUSIONS: 1. Technically very difficult study, but grossly no evidence of a significant degree of ischemia or prior infarction. 2. Moderate LV dysfunction. TID: [id number] RECEIPT: [id number] LYNN/ANDRADE/BHARGAV
--- NOTE | 2021-12-14 17:01 | Progress Note ---
Assessment and Plan Acute Renal Failure secondary to Ischemic ATN secondary to Sepsis, Cardiac arrest and Hypotension S/P Cardiac Arrest Acute Hypoxemic Respiratory Failure Acute DVT Sepsis CHF Anemia Hyperkalemia Hyponatremia Plan: BUN/Cr trending down. No HD today. Eval for need daily. will check bladder scan fluid restriction 1000 cc a day CHF-LVEF 25-30 % Anemia-On Epogen 10,000 units TIW Obtain daily weights Strict I/O's daily Renally dose medications Avoid nephrotoxic agents Continue to monitor renal function closely Assess dialysis needs daily Subjective Date of service: 12/14/21 Principal diagnosis: AHRF; Cardiac arrest; R. pneumothorax; pneumonia; AMS; DVT's; SIERRA; Obesity Interval history: Making urine. Objective - Exam Narrative Exam: - Physical Examination General: No Apparent Distress HEENT: Positive: EOMI, Normocephaly Neck: Positive: trachea midline. Negative: JVD/HJR Cardiac: Positive: irregularly irregular Lungs: Positive: Decreased Breath Sounds Neuro: Positive: Grossly Intact Abdomen: Positive: Soft Skin: Negative: Rash Musculoskeletal: No Pain Extremities: Present: upper extr. pulses, +1 Edema, warm - Vital Signs Vital signs: Vital Signs - 12hr 12/14/21 12/14/21 12/14/21 08:32 09:39 10:00 Temperature 97.4 F L Pulse Rate 67 Pulse Rate [ 97 H Apical] Respiratory 26 H Rate Blood Pressure 122/72 [Left] O2 Sat by Pulse 99 97 Oximetry 12/14/21 12/14/21 12/14/21 12:45 15:46 15:57 Temperature 97.4 F L 98.9 F Pulse Rate 87 74 97 H Pulse Rate [ Apical] Respiratory 18 26 H Rate Blood Pressure 134/87 131/70 [Left] O2 Sat by Pulse 97 99 Oximetry - Lab 12/13/21 06:19 12/14/21 06:36 Most recent lab results ABG pH 7.333 pH Units (7.350-7.450) L 12/12/21 14:10 ABG pCO2 50.1 mm Hg 12/12/21 14:10 ABG pO2 57.0 mm Hg (80.0-90.0) L 12/12/21 14:10 ABG HCO3 26.0 mmol/L (20.0-26.0) 12/12/21 14:10 ABG O2 Saturation 88.0 % (95.0-99.0) L 12/12/21 14:10 Calcium 9.3 mg/dL (8.4-10.2) 12/14/21 06:36 Phosphorus 5.20 mg/dL (2.5-4.5) H 12/02/21 03:22 Magnesium 1.60 mg/dL (1.7-2.3) L 11/19/21 14:38 Urine Creatinine 190.9 mg/dL (0.1-20.0) H 11/04/21 Unknown Urine Sodium 10 mmol/L 11/04/21 Unknown Urine Total Protein 172 mg/dL (5-11.8) H 11/04/21 Unknown Medications & Allergies - Medications Allergies/Adverse Reactions: Allergies No Known Allergies Allergy (Verified 10/29/21 14:01) Home Medications: Home Medications Medication Instructions Recorded Confirmed Last Taken Type Unobtainable 11/10/21 11/10/21 Unknown History Active Medications: Generic Name Dose Route Start Last Admin Trade Name Freq PRN Reason Stop Dose Admin Acetaminophen 650 mg 10/29/21 17:04 11/12/21 22:53 Acetaminophen 650 Mg Rect Supp IA 650 mg Q6H PRN Administration Pain MILD(1-3)/Fever >100.5/NIEVES Acetaminophen 650 mg 11/19/21 16:35 12/12/21 15:55 Acetaminophen 325 Mg Tab PO 650 mg Q6HR PRN Administration PAIN Albumin Human 50 gm 12/02/21 11:00 12/02/21 11:55 Albumin Human 25% (25 Gm/100 Ml) Inj IV 50 gm ZACH PRN Administration Hypotension Alprazolam 0.25 mg 11/14/21 14:29 12/11/21 09:16 Alprazolam 0.25 Mg Tab PO 0.25 mg Q8H PRN Administration Anxiety Amiodarone HCl 200 mg 12/13/21 22:00 12/14/21 10:44 Amiodarone 200 Mg Tab PO 200 mg BID RAMON Administration Apixaban 5 mg 12/12/21 10:00 12/14/21 10:44 Apixaban 5 Mg Tab PO 5 mg Q12HR RAMON Administration Protocol Docusate Sodium 100 mg 11/18/21 15:00 12/14/21 10:44 Docusate Sodium 100 Mg Cap PO 100 mg BID RAMON Administration Epoetin Landon-epbx 10,000 unit 12/06/21 10:00 12/07/21 15:30 Epoetin Landon-Epbx 10,000 Unit/1 Ml Vial IV 10,000 unit ZACH PRN Administration hemodialysis Famotidine 10 mg 11/06/21 10:00 12/14/21 10:45 Famotidine 10 Mg Tab PO 10 mg BID RAMON Administration Gabapentin 100 mg 11/28/21 14:00 12/14/21 14:13 Gabapentin 100 Mg Cap PO 100 mg Q8HR RAMON Administration Hydrophilic Ointment 1 applic 10/29/21 14:29 11/09/21 08:51 Lip Therapy Vaseline TP 1 applic Q2HR PRN Administration Dry Lips Sodium Chloride 100 mls @ 999 mls/hr 12/01/21 14:44 Nacl 0.9% IV ZACH PRN Hypotension Insulin Human Lispro 0 unit 11/25/21 22:00 12/14/21 09:39 Insulin Lispro 100 Unit/Ml SUB-Q Not Given ACHS [facility] Protocol Lactulose 20 gm 11/18/21 14:43 12/06/21 15:26 Lactulose 20 Gm/30 Ml Oral Liqd PO 20 gm Q6H PRN Administration Constipation Melatonin 10 mg 11/22/21 17:31 12/13/21 22:09 Melatonin 5 Mg Tab PO 10 mg QHS PRN Administration Sleep Metoprolol Tartrate 100 mg 12/07/21 11:00 12/14/21 10:44 Metoprolol Tartrate 50 Mg Tab PO 100 mg BID RAMON Administration Midodrine 10 mg 12/01/21 12:00 12/14/21 14:13 Midodrine 5 Mg Tab PO 10 mg TID@0800,1200,1600 RAMON Administration Morphine Sulfate 1 mg 11/28/21 15:00 12/10/21 16:34 Morphine 2 Mg/1 Ml Inj IV 1 mg Q4H PRN Administration Pain, Moderate (4-6) Multi-Ingred Cream/Lotion/Oil/Oint 1 applic 10/29/21 14:29 11/06/21 09:25 Mineral Oil/Petrolatum, White Ophth Oint 3.5 Gm OU 1 applic Q4HR PRN Administration Dry Eye(s) Oxycodone/Acetaminophen 1 tab 11/27/21 14:31 12/13/21 03:29 Oxycodone /Acetaminophen 5-325mg Tab PO 1 tab Q4H PRN Administration Pain, Moderate (4-6) Polyethylene Glycol 17 gm 11/20/21 12:47 12/08/21 09:54 Polyethylene Glycol 3350 17 Gm Powder PO 17 gm QDAY PRN Administration Constipation Senna/Docusate Sodium 1 tab 11/16/21 22:00 12/14/21 10:44 Sennosides/Docusate Sodium 8.6/50 Mg Tab PO 1 tab BID RAMON Administration Sodium Chloride 10 ml 10/29/21 22:00 12/14/21 10:45 Sodium Chloride 0.9% 10 Ml Flush Syringe IV 10 ml BID RAMON Administration Sodium Chloride 10 ml 10/29/21 17:04 Sodium Chloride 0.9% 10 Ml Flush Syringe IV PRN PRN LINE FLUSH
--- NOTE | 2021-12-14 18:43 | Progress Note ---
Assessment and Plan Assessment and plan: 66 YO Female with Obesity was attending [facility] services when the patient collapsed and lost consciousness. Witnesses began CPR. EMS was notified and upon arrival the patient was found to be in distress without perfusing cardiac rhythm. Patient initiated on ACLS protocol and subsequently intubated in the field and transported to ED. The patient regained spontaneous circulation during transport. She was found to have acute hypoxemic respiratory failure, septic shock suspected secondary to aspiration pneumonia, metabolic acidosis, toxic metabolic encephalopathy, shock liver, and cardiac arrest with return of perfusing cardiac rhythm after initiation of ACLS protocol. Patient initiated on sepsis protocol as well as pneumonia protocol. Patient admitted to ICU. Patient improved, extubated on 11/11 and transferred to floor on 11/19. s/p cardiac arrest, collapse at [facility], HFrEF, shock/hypotension resolved Atrial fibrillation/atrial flutter -Cardiac arrest and collapse at [facility] with ROSC -Cardiology consulted, appreciate recommendations - S/p Cardizem gtt- d/c due to low EF; now on PO Amio -s/p vasopressor support with levophed -Echocardiogram shows left ventricular systolic function severely decreased, LVEF 25 to 30%, no pericardial effusion -proBNP 5622 -Continue Lasix 20 mg twice daily, BB, spironolactone, losartan -No significant volume overload clinically Acute hypoxic respiratory failure, right pneumothorax, Angioedema (resolved), pulmonary edema -[facility] consulted, appreciate recommendations -Intubated on 10/29 and extubated on 11/11 -Bipap q HS and prn, at high risk for KOLBY with morbid obesity -NC during day -s/p right chest tube for pneumothorax -s/p steroids for angioedema -On Lasix for pulmonary edema. Transaminitis likely shocked liver - resolved Acute kidney injury likely secondary to vasomotor nephropathy, hypernatremia -Nephrology consulted, appreciate recommendations -Krishna replaced 11/05 urinary retention -FeNa 0.05 indicating pre-renal -SIERRA and hyponatremia resolved. Creatinine 1.0 on Lasix IV Shock cardiogenicsuspected sepsis -Fever was as high as 102 with a leukocytosis Blood, urine and sputum cultures negative -COVID-19 PCR negative -S/p empiric antibiotic therapy for possible pneumonia with Rocephin and azithromycin () -S/p Levophed gtt for hypotension -Fever and leukocytosis resolved -Monitor WBC and temperature curve Acute Metabolic encephalopathy, agitation/anxiety -Etiology likely from a cardiac arrest, shock and cerebral hypoperfusion CT head no acute focal parenchymal lesion in the brain -Neurology consulted, appreciate recommendations -EEG and MRI noted, Neuro recommend to cut down on sedation as possible Mental status significantly improved, currently fairly alert and oriented. Answers appropriately. Acute DVT in the left posterior tibial vein and bilateral peroneal veins, Anemia, retroperitoneal bleed -D-dimer greater than 10,000 -CTA chest with no evidence of PE -Bilateral lower extremity ultrasound positive for DVT -Heparin gtt on hold d/t anemia, received PRBC x4 -vasuclar surgery consulted, appreciate recommendations -recommended multiphasic CT angio of the abdomen and pelvis with and without contrast if H/H drops and did not recommend IVC filter at this time as the DVTs are infrapopliteal and recommends a follow-up DVT study weekly for 2 weeks. Repeat venous duplex ultrasound on 11/21 showed progression of left peroneal DVT extending into popliteal vein. Vascular surgery completed IVC filter placement on 11/22. -Trend CBC -SCDs to BLE while in bed -Transfuse hemoglobin less than 7 -Monitor for signs of bleeding -Hemoglobin stable, 8.6 Hypertension, not able be controlled Increase losartan 200 mg daily and add hydralazine as needed. Hyperglycemia ,resolved) -Avoid hypoglycemia -Hbg A1C 6.7 -SSI and lantus q hs (titrate as needed) -Accu-Cheks q. 6 Morbid obesity High risk for KOLBY On nightly BiPAP Deconditioning PT/OT Hospital Course to Date: 10/30: Intubated and sedated, on fentanyl gtt. Open eyes spontaneously but does not follow any commands. On vasopressors, titrate as tolerated for MAP above 65. Patient febrile overnight, continue empiric IV Abx, culture data and COVID PCR pending. Patient is also s/p CT placement due to spontaneous pneumothorax. 2D echo is pending and Cardiology is consulted. 10/31: Patient remains intubated and following commands. Levophed drip stopped and potassium repleted. Patient started on tube feeding. Remains in soft bilateral restraints. 11/01: RN noted ST changes on BSM and 12 lead EKG obtained which showed ST. Given Ativan 1mg for agitation as she is maxed on fentanyl drip and IV push fentanyl did not seem to help. Patient was started on CPAP this morning by RT but remained on fentanyl drip and was having periods of apnea. Plan was to retry CPAP again in the p.m. with sedation off. 11/02: Rate increased r/t hypercapnea on ABG, sedation reduced. Given kionex for hyperkalemia and was started on levophed overnight for hypotension. 11/03: Overnight patient had tachycardia and was given Cardizem and Lopressor. Lopressor was repeated in the a.m. due to tachycardia. Patient will be started on amiodarone with a bolus per cardiology. Patient started on normal saline per liter per [facility] and steroids for angioedema. Noted to have bright red blood when suctioned from oh ETT. Remains on heparin drip as H/H is stable for now. Will reevaluate. Fentanyl drip was restarted last night due to agitation. Dr. Flores updated family today 11/04: Patient was sedated on fentanyl however off sedation is able to follow commands, a.m. labs completed in the p.m. and show hyperkalemia with increased renal function studies. Nephrology, neurology consulted by [facility]. Given Kayexalate, insulin and D50 for hyperkalemia. Patient remains on amiodarone. 11/05: Patient needed to be sedated on fentanyl again to today. overnight krishna was replaced. Hyperkalemia->given kionex 60 for 5.6. Repeat K 6-> Dr. Grant informed and requested bumex, kionex, insulin, d50, calcium gluconate and sodium bicarb with repeat BMP in 2 hours which were placed. HR remains elevated. 11/06: Patient remained in atrial fibrillation/atrial flutter with heart rate in the 150s despite being on amnio drip and was given amnio bolus, Cardizem bolus and started on Cardizem drip by cardiology. Patient is on beta-blockers p.o. scheduled and to feedings changed to Nepro. Kayexalate was given in the morning by nephrology due to hyperkalemia. 11/07: Patient is only responsive to mild stimuli, precedex added in an attempt to wean off fentanyl gtt to better assess her mental status. Neurology also on consult, pending MRI and EEG. Patient remains in Aflutter this am, HR in the 80 to 90s, still on amiodarone and heparin gtt. 11/08: Fentanyl gtt is off, only on precedex gtt. Patient is still not following any commands. MRI brain and EEG completed. Neuro recommendations noted, sedatives agents decreased. FWF added for hypernatremia and low K repleted, repeat labs ordered. Placed a call and spoke with patient's daughter, Eva Brown . She was updated on patient's conditions and status. All questions and concerns were voiced at this time. 11/09: Patient is awake and alert this am, following commands and appropriate. Remains on precedex gtt, plan for possible PST today. Hypertensive overnight, meds adjusted by Cardio and PRN Hydralazine added for SBP greater than 160. CT dislodged overnight, CXR is stable with no significant change. F/U CXR in the am. Patient's daughter, Eva Brown, visited with patient. She was updated on patient's status and goal of care for today. All questions and concerns were voiced at this time. 11/10: Mentation remains intact, still on precedex gtt. This am CXR noted still with fluid overload s/p X1 dose of IV lasix, good response from IV lasix overnight. Hypernatremia improved, D5W d/dayday. Still with persistent hypokalemia, continue electrolytes replacement and frequent lab check. Daily IV lasix and aldactone added by Cardio. Patient is also with persistent low grade fevers overnight, leukocytosis with mild improvement this am. Will get a repeat sputum culture, hold off on IV abx for now. Consider ID consult if fevers and leukocytosis persist. Patient tolerated PST X4hrs yesterday. PST again today, plan to wean to extubate if tolerated. 11/11: IAM overnight. Off precedex gtt and tolerated PST this am. Plan to wean to extubate today. Additional IV lasix given, plan to keep patient at a net negative balance for better lung compliance. F/U CXR in the am. K improved this am, repeat BMP this afternoon since diuresing. Remains with low grade fevers, leukocytosis downtrending, will continue to monitor. Speech/PT/OT ordered 11/12: S/p extubation, now stable on 3L NC. This am CXR noted with no significant changes, lasix changed to IV X4days BID. Drop in H&H this am, and Lt. flank ecchymosis noted. Heparin gtt on hold for now and orders placed for 1 unit of PRBCs and Ct Abd/Pelvis w/o con to r/o retroperitoneal bleed. Pending speech swallow eval, keep patient NPO for now. Patient is stable for IMCU status 11/13: Patient with increased WOB and tachycardia this am, patient was placed on Bipap and precedex gtt was resumed. CXR with mild improvement. CT Abd/Pelvis also reviewed large hematomas noted at the Lt. retroperitoneum and left posterior lateral abdominal wall. Heparin gtt is already on hold, patient is hemodynamically stable. Vascular Surgery consulted for possible IVC filter eval. Patient s/p 2units of PRBCs, will continue to trend H&H and transfuse if hbg is less than 7. Worsening renal function this am, IF diuretic on hold for now. Patient is also febrile with spike in wbcs most likely reactive to bleed, will panculture and hold off on IV Abx for now. Patient also failed speech bedside swallow eval yesterday, NGT in placed plan to resume enteral nutrition 11/14: Patient had bilateral lower extremity Doppler ultrasound and vascular surgery has recommended multiphasic CT angio of the abdomen and pelvis with and without contrast if H/H drops and does not recommend IVC filter at this time as the DVTs are infrapopliteal and recommends a DVT study weekly for 2 weeks. FWF 250 q4 ml per nephro. Started on as needed Xanax and p.o. amiodarone. She did not pass her ST evaluation today. Will be transferred to [facility]. 11/15: Resting comfortably on encounter. Speech cleared for pureed diet. Remains on 3l satting 98 % on bedside encounter. Does not appear to be in respiratory distress. Will continue to hold AC, No ivc filter planned at this time. qweekly doppler to monitor for migration of DVT per vascular. If demonstrated, will consider IVC filter. CBC ordered for tomorrow, will continue monitoring in light of retroperitoneal hematoma. FWF increased by nephrology to 350cc q4hr d/t hypernatremia. UOP/renal function both improved. D/w cardiology, will continue amiodorone an additional 24hrs. Plan to change dosing of metoprolol. Continue to wean off of precedex. Continue xanax scheduled for anxiety. physical therapy recs noted, fernanda / ltac will discuss with CM. Continue IMCU monitoring. 11/16: Pulmonary congestion this AM. CXR ordered. Lasix 40 mg IV x 1 order this AM. Will monitor for 24 hrs. potential downgrade to medical floor tomorrow. 11/17: Persisting pulmonary congestion, was on bipap overnight into this AM. Will order additional lasix 40 mg IV x 2. CXR ordered for AM. Possible downgrade to floor tomorrow. Anticipate d/c sunday. 11/18: Patient seen and examined, continue weaning, will continue diuresis BID, discussed with daughter. 11/19: Patient seen and examined this morning doing well no acute distress noted. Lasix was increased to twice daily to 20 mg IV. Clinically improving. Patient will be transferred to telemetry today can be switched to Lasix p.o. twice daily in a.m. She has her weekly Doppler of lower extremity tomorrow vascular is following for this. She was taken off anticoagulation secondary to retroperitoneal bleed., The anticoagulation was started initially for atrial fibrillation and an infrapopliteal DVT. During her hospital stay she had a prolonged ventilator management and was successfully weaned off. She also received a total of 4 units of packed red blood cell. Hemoglobin has remained stable. Anticipate discharge in next 48 hours if continues to clinically stay stable. : Transferred from ICU on 11/19. Progressive improving. Currently awake and oriented. O2 weaned to 4 L. Hemodynamically stable. BP control being optimized. MiraLAX for constipation. Hemoglobin stable on the heparin infusion, being monitored closely with history of retroperitoneal bleed. 11/21: Patient remains mostly bedridden. She is awake and oriented on 2 L of O2. Repeat ultrasound showed extension of left peroneal DVT into popliteal vein. Heparin was discontinued for significant retroperitoneal bleed and off anticoagulation since. Vascular surgery plan for placement of IVC filter tomorrow. Patient is chest pains, palpitations, hemoptysis. She has some cough. Left lower extremity pain likely from DVT better today. Discussed with the patient, nursing staff and vascular surgery. 11/22: The infrapopliteal vein thrombosis has propagated to the left popliteal vein. Vascular surgery to perform IVC filter placement today. 11/23: Vascular surgery placed IVC filter yesterday. Continue metoprolol 100 mg p.o. twice daily, Aldactone 25 mg p.o. daily and losartan 25 mg p.o. daily. Patient still requiring BiPAP (IPAP18, EPAP8) with FiO2 of 30%. Continue to wean oxygen per pulmonary recommendations. Nurse reports patient is having vaginal bleeding. We will check serial CBC and pelvic ultrasound 11/24: I discussed with cardiology yesterday the need for a LifeVest. LifeVest is ordered and pending. Patient is s/p IVC filter placement. Continue metoprolol 100 mg p.o. twice daily, Aldactone 25 mg p.o. daily and losartan 25 mg p.o. shaan ly. Patient still requiring BiPAP (IPAP18, EPAP8) with FiO2 of 30%. Continue to wean oxygen per pulmonary recommendations. No further reports of vaginal bleeding. Pelvic ultrasound negative 11/25: Awaiting for LifeVest. Patient is s/p IVC filter placement. Continue metoprolol 100 mg p.o. twice daily, Aldactone 25 mg p.o. daily and losartan 25 mg p.o. daily. Patient still requiring BiPAP (IPAP18, EPAP8) with FiO2 of 30%. Continue to wean oxygen per pulmonary recommendations. 11/26: Physical therapy recommends subacute rehab. Still awaiting LifeVest. Patient is s/p IVC filter placement. Continue metoprolol 100 mg p.o. twice daily, Aldactone 25 mg p.o. daily and losartan 25 mg p.o. daily. Patient still requiring BiPAP (IPAP18, EPAP8) with FiO2 of 30% at night. Continue to wean oxygen per pulmonary recommendations. Patient currently with 2 L O2. 11/27: Physical therapy recommends subacute rehab. Patient has a LifeVest. Patient's left lower extremity pain likely related to DVT. Continue pain control. Continue metoprolol 100 mg p.o. twice daily, Aldactone 25 mg p.o. daily and losartan 25 mg p.o. daily. Patient still requiring BiPAP (IPAP18, EPAP8) with FiO2 of 30% at night. 11/28: Physical therapy recommends subacute rehab. Patient has a LifeVest. Patient continues to complain of left lower extremity pain which makes it very difficult for ambulation. Continue Percocet for pain control. Add neurontin for possible neuropathy. Etiology is likely secondary to DVT. Continue metoprolol 100 mg p.o. twice daily, Aldactone 25 mg p.o. daily and losartan 25 m g p.o. daily. Patient still requiring BiPAP (IPAP18, EPAP8) with FiO2 of 30% at night. Repeated Doppler US of LLE and will ask vascular surgery to revisit. 11/29; worsening lower extremity DVTs, vascular following, on heparin drip 11/30; low-grade fever, leukocytosis, shortness of breath, chest x-ray possible left-sided pneumonia/possible healthcare associated pneumonia Blood cultures already sent, empiric antibiotic cefepime[renal dose confirmed with pharmacist] ID consult if needed 12/01; gram-positive bacteremia preliminary, add vancomycin 1 dose, repeat cultures, consult ID Worsening renal function, nephrology initiated hemodialysis today, patient is critically ill, very poor prognosis, with multiple comorbidities And critical issues. Nursing Education Specialist recommendations noted and appreciated 12/02; Gram positive bacteremia/possible HCAP and sepsis, on cefepime and 1 dose Vanco. Nephrology initiated hemodialysis, ID consult. Patient is hypotensive, pulmonary critical recommended transfer to ICU and start vasopressors for close observation overnight. Dr. Padron discussed with patient's daughter over patient's telephone and discussed in detail patient's condition, new developments sepsis, renal failure on hemodialysis anticoagulation for DVT and severe cardiomyopathy, also discussed poor prognosis, and the plans of transferring the patient to ICU for close observation. Many questions, and answered all of them. dr. Padron also discussed with granddaughter at the bedside and patient was moved to ICU, She had numerous questions answered all of them and discussed the current con dition prognosis and treatment plan. She verbalized understanding 12/03: Patient was transferred to ICU yesterday evening for hypotension however she did not need to be started on any vasopressin therapy. Patient is on p.o. midodrine and all her antihypertensives have been held. She also received albumin bolus. Patient will be transferred to the floor today. Still complains of bilateral lower extremity pain. Patient is on cefepime and she is scheduled for dialysis today. 12/04: Some complaint of leg pain. Percocet given for pain control. Patient is very deconditioned, will need aggressive PT. Will work on d/c planning with cm. 12/05: Patient does not appear to be in distress this AM. tachycardic hr on encounter and overnight, was given diltiazem by senior software developer. Cardiology initiated metoprolol and amiodorone on patient this morning. She denies any pain except for discomfort in left lower extremity. Controlled with percocet. She also states that she does not have any urine output and has been constipated. Will order bowel regimen. Discharge needs discussed with CM which include Lifevest, BIPAP for nightly use, and possible set up for dialysis. She was visiting on a visa to the from [place] however is technically a citizen of [place] which makes placement a continued challenge. 12/06: Case management reports patient will need LifeVest, walker, CPAP and arrangements for outpatient hemodialysis. However, patient is uninsured. I discussed with the daughter Eva plans for home hospice. Eva reports that she is willing to have hospice to obtain additional resources but is not wanting palliative care/comfort measures. 12/07: Awaiting LifeVest and outpatient HD arrangements. I d/w CM discharge planning. Pt still with heparin drip but amiodarone changed to p.o. 200mg BID. Cont. Metoprolol 50mg BID. Hold LAYO and ARB for renal fxn. Patient for outpatient ischemic evaluation per Cardiology. Leukocytosis likely related to retroperitoneal hematoma. ID wants to monitor off abx. 12/08: Awaiting LifeVest and outpatient HD arrangements. I d/w CM discharge p ximena. Pt still with heparin drip. Await cardiology recommendations to transition to p.o. anticoagulation. Patient for outpatient ischemic evaluation per Cardiology. Leukocytosis likely related to retroperitoneal hematoma. Continue to monitor off antibiotics. Continue volume management per nephrology with hemodialysis 12/09: Patient with PermCath placement today. Nephrology reports patient hypotensive during hemodialysis and started 10 mg of midodrine for hypotension. Losartan discontinued. Continue to obtain daily weights and Strict I/O's. Renally dose medications and avoid nephrotoxic agents. Patient for outpatient ischemic evaluation per Cardiology. Leukocytosis likely related to retroperitoneal hematoma. Continue to monitor off antibiotics. Awaiting LifeVest and outpatient HD arrangements. 12/10: Continue hemodialysis per nephrology recommendations. We will discontinue heparin drip and start Eliquis 5 mg p.o. twice daily for anticoagulation. Blood pressure appears to be improved. Continue midodrine. Continue to obtain daily weights and Strict I/O's. Renally dose medications and avoid nephrotoxic agents. Patient for outpatient ischemic evaluation per Cardiology. Leukocytosis likely related to retroperitoneal hematoma. Continue to monitor off antibiotics. Awaiting LifeVest and outpatient HD arrangements. 12/11: Cardiology plans for Lexiscan in a.m. Continue hemodialysis per nephrology recommendations. We will discontinue heparin drip and start Eliquis 5 mg p.o. twice daily for anticoagulation. Blood pressure appears to be improved. Continue midodrine. Continue to obtain daily weights and Strict I/O's. Renally dose medications and avoid nephrotoxic agents. 12/12: Lexiscan this morning per cardiology. Continue hemodialysis per nephrology recommendations. Continue Eliquis for anticoagulation. Continue midodrine. Continue to obtain daily weights and Strict I/O's. Renally dose medications and avoid nephrotoxic agents. 12/14; Lexiscan test yesterday was negative for ischemia, patient receiving physical therapy, hemodialysis DC planning per case management. Hospice placement, multiple social issues History Interval history: I have seen and examined the patient at the bedside this morning Patient's chart and medications reviewed Patient feels slightly better no new complaints Vital signs noted No new events reported by the nursing staff Hospitalist Physical - Constitutional Vitals: Temp Pulse Resp BP Pulse Ox 98.9 F 97 H 26 H 131/70 99 12/14/21 15:46 12/14/21 15:57 12/14/21 15:46 12/14/21 15:46 12/14/21 15:46 General appearance: Present: no acute distress, well-nourished, obese (Morbidly obese), other (Minimally communicative) - EENT Eyes: Present: PERRL, EOM intact - Neck Neck: Present: supple, normal ROM - Respiratory Respiratory effort: normal Respiratory: bilateral: diminished, rhonchi, negative: rales, wheezing - Cardiovascular Rhythm: regular Heart Sounds: Present: S1 & S2 - Extremities Extremities: no ischemia, No edema - Abdominal General gastrointestinal: soft, non-tender, non-distended, normal bowel sounds - Integumentary Integumentary: Present: clear, warm - Psychiatric Psychiatric: appropriate mood/affect, cooperative - Neurologic Neurologic: moves all extremities HEART Score - HEART Score Troponin: Troponin T 1.150 ng/mL (0.00-0.029) H* D 10/29/21 22:34 Results - Labs CBC & Chem 7: 12/13/21 06:19 12/14/21 06:36 Labs: Laboratory Last Values WBC 12.9 K/mm3 (4.5-11.0) H 12/13/21 06:19 RBC 2.54 M/mm3 (3.65-5.03) L 12/13/21 06:19 Hgb 7.2 gm/dl (10.1-14.3) L 12/13/21 06:19 Hct 22.8 % (30.3-42.9) L 12/13/21 06:19 MCV 90 fl (79-97) 12/13/21 06:19 MCH 28 pg (28-32) 12/13/21 06:19 MCHC 32 % (30-34) 12/13/21 06:19 RDW 18.0 % (13.2-15.2) H 12/13/21 06:19 Plt Count 178 K/mm3 (140-440) 12/13/21 06:19 Lymph % (Auto) 11.1 % (13.4-35.0) L 11/29/21 13:51 [place] % (Auto) 15.5 % (0.0-7.3) H 11/29/21 13:51 Eos % (Auto) 1.0 % (0.0-4.3) 11/29/21 13:51 Baso % (Auto) 0.6 % (0.0-1.8) 11/29/21 13:51 Lymph # (Auto) 1.4 K/mm3 (1.2-5.4) 11/29/21 13:51 [place] # (Auto) 2.0 K/mm3 (0.0-0.8) H 11/29/21 13:51 Eos # (Auto) 0.1 K/mm3 (0.0-0.4) 11/29/21 13:51 Baso # (Auto) 0.1 K/mm3 (0.0-0.1) 11/29/21 13:51 Add Manual Diff Complete 12/10/21 05:22 Total Counted 100 12/10/21 05:22 Seg Neutrophils % 71.8 % (40.0-70.0) H 11/29/21 13:51 Seg Neuts % (Manual) 73.0 % (40.0-70.0) H 12/10/21 05:22 Band Neutrophils % 12.0 % 12/10/21 05:22 Lymphocytes % (Manual) 7.0 % (13.4-35.0) L 12/10/21 05:22 Reactive Lymphs % (Man) 0 % 12/10/21 05:22 Monocytes % (Manual) 1.0 % (0.0-7.3) 12/10/21 05:22 Eosinophils % (Manual) 1.0 % (0.0-4.3) 12/10/21 05:22 Basophils % (Manual) 2.0 % (0.0-1.8) H 12/10/21 05:22 Metamyelocytes % 0 % 12/10/21 05:22 Myelocytes % 4.0 % 12/10/21 05:22 Promyelocytes % 0 % 12/10/21 05:22 Blast Cells % 0 % 12/10/21 05:22 Nucleated RBC % 1.0 % (0.0-0.9) H 12/10/21 05:22 Seg Neutrophils # 9.3 K/mm3 (1.8-7.7) H 11/29/21 13:51 Seg Neutrophils # Man 10.6 K/mm3 (1.8-7.7) H 12/10/21 05:22 Band Neutrophils # 1.7 K/mm3 12/10/21 05:22 Lymphocytes # (Manual) 1.0 K/mm3 (1.2-5.4) L 12/10/21 05:22 Abs React Lymphs (Man) 0.0 K/mm3 12/10/21 05:22 Monocytes # (Manual) 0.1 K/mm3 (0.0-0.8) 12/10/21 05:22 Eosinophils # (Manual) 0.1 K/mm3 (0.0-0.4) 12/10/21 05:22 Basophils # (Manual) 0.3 K/mm3 (0.0-0.1) H 12/10/21 05:22 Metamyelocytes # 0.0 K/mm3 12/10/21 05:22 Myelocytes # 0.6 K/mm3 12/10/21 05:22 Promyelocytes # 0.0 K/mm3 12/10/21 05:22 Blast Cells # 0.0 K/mm3 12/10/21 05:22 WBC Morphology Not Reportable 12/10/21 05:22 Hypersegmented Neuts Not Reportable 12/10/21 05:22 Hyposegmented Neuts Not Reportable 12/10/21 05:22 Hypogranular Neuts Not Reportable 12/10/21 05:22 Smudge Cells Not Reportable 12/10/21 05:22 Toxic Granulation Not Reportable 12/10/21 05:22 Toxic Vacuolation Not Reportable 12/10/21 05:22 Dohle Bodies Not Reportable 12/10/21 05:22 Pelger-Huet Anomaly Not Reportable 12/10/21 05:22 Manny Rods Not Reportable 12/10/21 05:22 Platelet Estimate Consistent w auto 12/10/21 05:22 Clumped Platelets Not Reportable 12/10/21 05:22 Plt Clumps, EDTA Not Reportable 12/10/21 05:22 Large Platelets Not Reportable 12/10/21 05:22 Giant Platelets Not Reportable 12/10/21 05:22 Platelet Satelliting Not Reportable 12/10/21 05:22 Plt Morphology Comment Not Reportable 12/10/21 05:22 RBC Morphology Not Reportable 12/10/21 05:22 Dimorphic RBCs Not Reportable 12/10/21 05:22 Polychromasia Not Reportable 12/10/21 05:22 Hypochromasia 1+ 12/10/21 05:22 Poikilocytosis Not Reportable 12/10/21 05:22 Anisocytosis 1+ 12/10/21 05:22 Microcytosis Not Reportable 12/10/21 05:22 Macrocytosis Not Reportable 12/10/21 05:22 Spherocytes Not Reportable 12/10/21 05:22 Pappenheimer Bodies Not Reportable 12/10/21 05:22 Sickle Cells Not Reportable 12/10/21 05:22 Target Cells Not Reportable 12/10/21 05:22 Tear Drop Cells Not Reportable 12/10/21 05:22 Ovalocytes Not Reportable 12/10/21 05:22 Helmet Cells Not Reportable 12/10/21 05:22 Maradiaga-Bevington Bodies Not Reportable 12/10/21 05:22 [place] Rings Not Reportable 12/10/21 05:22 [place] Cells Not Reportable 12/10/21 05:22 Bite Cells Not Reportable 12/10/21 05:22 Crenated Cell Not Reportable 12/10/21 05:22 Elliptocytes Not Reportable 12/10/21 05:22 Acanthocytes (Spur) Not Reportable 12/10/21 05:22 Rouleaux Not Reportable 12/10/21 05:22 Hemoglobin C Crystals Not Reportable 12/10/21 05:22 Schistocytes Not Reportable 12/10/21 05:22 Malaria parasites Not Reportable 12/10/21 05:22 Magdy Bodies Not Reportable 12/10/21 05:22 Hem Pathologist Commnt No 12/10/21 05:22 PT 13.4 Sec. (12.2-14.9) 12/11/21 13:08 INR 0.92 (0.87-1.13) 12/11/21 13:08 APTT 116.8 Sec. (24.2-36.6) H* 12/11/21 13:08 D-Dimer > 11877 ng/mlDDU (0-234) H 10/30/21 Unknown Heparin Anti-Xa Level Cancelled 12/11/21 13:08 ABG pH 7.333 pH Units (7.350-7.450) L 12/12/21 14:10 ABG pCO2 50.1 mm Hg 12/12/21 14:10 ABG pO2 57.0 mm Hg (80.0-90.0) L 12/12/21 14:10 ABG HCO3 26.0 mmol/L (20.0-26.0) 12/12/21 14:10 ABG O2 Saturation 88.0 % (95.0-99.0) L 12/12/21 14:10 ABG O2 Content 9.1 (0.0-44) 12/12/21 14:10 ABG Base Excess 0.0 mmol/L (-2.0-3.0) 12/12/21 14:10 ABG Hemoglobin 7.6 gm/dl (12.0-16.0) L 12/12/21 14:10 ABG Carboxyhemoglobin 2.2 % (0.0-5.0) 12/12/21 14:10 ABG Methemoglobin 0.7 % (0.0-1.5) 12/12/21 14:10 Oxyhemoglobin 85.4 % (95.0-99.0) L 12/12/21 14:10 FiO2 21 % 12/12/21 14:10 Sodium 132 mmol/L (137-145) L 12/14/21 06:36 Potassium 4.7 mmol/L (3.6-5.0) 12/14/21 06:36 Chloride 98.7 mmol/L (98-107) 12/14/21 06:36 Carbon Dioxide 23 mmol/L (22-30) 12/14/21 06:36 Anion Gap 15 mmol/L 12/14/21 06:36 BUN 43 mg/dL (7-17) H 12/14/21 06:36 Creatinine 1.9 mg/dL (0.6-1.2) H 12/14/21 06:36 Estimated GFR 32 ml/min 12/14/21 06:36 BUN/Creatinine Ratio 23 % 12/14/21 06:36 Glucose 97 mg/dL (65-100) 12/14/21 06:36 POC Glucose 128 mg/dL (70-105) H 12/14/21 16:25 Hemoglobin A1c 6.7 % (4-6) H 10/31/21 04:30 Lactic Acid 0.70 mmol/L (0.7-2.0) 10/31/21 15:45 Calcium 9.3 mg/dL (8.4-10.2) 12/14/21 06:36 Phosphorus 5.20 mg/dL (2.5-4.5) H 12/02/21 03:22 Magnesium 1.60 mg/dL (1.7-2.3) L 11/19/21 14:38 Ferritin 208.4 ng/mL (10.0-200.0) H 10/30/21 Unknown Total Bilirubin 0.40 mg/dL (0.1-1.2) 12/14/21 06:36 Direct Bilirubin < 0.2 mg/dL (0-0.2) 12/14/21 06:36 Indirect Bilirubin 0.2 mg/dL 12/14/21 06:36 AST 12 units/L (5-40) 12/14/21 06:36 ALT < 5 units/L (7-56) L 12/14/21 06:36 Alkaline Phosphatase 81 units/L (35-129) 12/14/21 06:36 Ammonia 31.0 umol/L (25-60) 10/29/21 15:10 Lactate Dehydrogenase 469 units/L (91-180) H 10/30/21 Unknown Troponin T 1.150 ng/mL (0.00-0.029) H* D 10/29/21 22:34 C-Reactive Protein 13.40 mg/dL (0.00-1.30) H 10/30/21 Unknown Total Protein 6.0 g/dL (6.3-8.2) L 12/14/21 06:36 Albumin 3.0 g/dL (3.9-5) L 12/14/21 06:36 Albumin/Globulin Ratio 1.0 % 12/14/21 06:36 Triglycerides 68 mg/dL (2-149) 10/29/21 19:40 Cholesterol 98 mg/dL (50-199) 10/29/21 19:40 LDL Cholesterol Direct 43 mg/dL (50-130) L 10/29/21 19:40 HDL Cholesterol 50 mg/dL (40-59) 10/29/21 19:40 Cholesterol/HDL Ratio 1.96 % 10/29/21 19:40 Procalcitonin 61.95 ng/mL (<0.15) 10/30/21 Unknown TSH 3.080 mlU/mL (0.270-4.200) 10/29/21 15:10 Urine Color Yellow (Yellow) 11/13/21 08:30 Urine Turbidity Slightly-cloudy (Clear) 11/13/21 08:30 Urine pH 6.0 (5.0-7.0) 11/13/21 08:30 Ur Specific [place] 1.010 (1.003-1.030) 11/13/21 08:30 Urine Protein <15 mg/dl mg/dL (Negative) 11/13/21 08:30 Urine Glucose (UA) Neg mg/dL (Negative) 11/13/21 08:30 Urine Ketones Tr mg/dL (Negative) 11/13/21 08:30 Urine Blood Sm (Negative) 11/13/21 08:30 Urine Nitrite Neg (Negative) 11/13/21 08:30 Urine Bilirubin Neg (Negative) 11/13/21 08:30 Urine Urobilinogen < 2.0 mg/dL (<2.0) 11/13/21 08:30 Ur Leukocyte Esterase Neg (Negative) 11/13/21 08:30 Urine WBC (Auto) < 1.0 /HPF (0.0-6.0) 11/13/21 08:30 Urine RBC (Auto) < 1.0 /HPF (0.0-6.0) 11/13/21 08:30 U Epithel Cells (Auto) < 1.0 /HPF (0-13.0) 11/13/21 08:30 Urine Mucus Few /HPF 10/29/21 18:15 Urine Eosinophils None seen (None Seen) 11/04/21 Unknown Urine Creatinine 190.9 mg/dL (0.1-20.0) H 11/04/21 Unknown Protein/Creatinin Ratio 0.90 11/04/21 Unknown Urine Sodium 10 mmol/L 11/04/21 Unknown Urine Total Protein 172 mg/dL (5-11.8) H 11/04/21 Unknown Salicylates < 0.3 mg/dL (2.8-20.0) L 10/29/21 15:10 Urine Opiates Screen Negative 10/29/21 18:15 Urine Methadone Screen Negative 10/29/21 18:15 Acetaminophen 5.0 ug/mL (10.0-30.0) L 10/29/21 15:10 Ur Barbiturates Screen Negative 10/29/21 18:15 Ur Phencyclidine Scrn Negative 10/29/21 18:15 Ur Amphetamines Screen Negative 10/29/21 18:15 U Benzodiazepines Scrn Negative 10/29/21 18:15 Urine Cocaine Screen Negative 10/29/21 18:15 U Marijuana (THC) Screen Negative 10/29/21 18:15 Drugs of Abuse Note Disclamer 10/29/21 18:15 Plasma/Serum Alcohol < 0.01 % (0-0.07) 10/29/21 15:10 Coronavirus (PCR) Negative (Negative) 10/30/21 Unknown Hepatitis A IgM Ab Non-reactive (NonReactive) 12/01/21 19:36 Hep Bs Antigen Non-reactive (Negative) 12/01/21 19:36 Hep B Core IgM Ab Non-reactive (NonReactive) 12/01/21 19:36 Hepatitis C Antibody Non-reactive (NonReactive) 12/01/21 19:36 Blood Type O POSITIVE 11/12/21 04:15 Antibody Screen Negative 11/12/21 04:15 Crossmatch See Detail 11/12/21 04:15 Krishna/IV: Voiding Method External Female Catheter Active Medications - Current Medications Current Medications: Generic Name Dose Route Start Last Admin Trade Name Freq PRN Reason Stop Dose Admin Acetaminophen 650 mg 10/29/21 17:04 11/12/21 22:53 Acetaminophen 650 Mg Rect Supp ID 650 mg Q6H PRN Administration Pain MILD(1-3)/Fever >100.5/NIEVES Acetaminophen 650 mg 11/19/21 16:35 12/12/21 15:55 Acetaminophen 325 Mg Tab PO 650 mg Q6HR PRN Administration PAIN Albumin Human 50 gm 12/02/21 11:00 12/02/21 11:55 Albumin Human 25% (25 Gm/100 Ml) Inj IV 50 gm ZACH PRN Administration Hypotension Alprazolam 0.25 mg 11/14/21 14:29 12/11/21 09:16 Alprazolam 0.25 Mg Tab PO 0.25 mg Q8H PRN Administration Anxiety Amiodarone HCl 200 mg 12/13/21 22:00 12/14/21 10:44 Amiodarone 200 Mg Tab PO 200 mg BID RAMON Administration Apixaban 5 mg 12/12/21 10:00 12/14/21 10:44 Apixaban 5 Mg Tab PO 5 mg Q12HR RAMON Administration Protocol Docusate Sodium 100 mg 11/18/21 15:00 12/14/21 10:44 Docusate Sodium 100 Mg Cap PO 100 mg BID RAMON Administration Epoetin [place]andon-epbx 10,000 unit 12/06/21 10:00 12/07/21 15:30 Epoetin [place]-Epbx 10,000 Unit/1 Ml Vial IV 10,000 unit ZACH PRN Administration hemodialysis Famotidine 10 mg 11/06/21 10:00 12/14/21 10:45 Famotidine 10 Mg Tab PO 10 mg BID RAMON Administration Gabapentin 100 mg 11/28/21 14:00 12/14/21 14:13 Gabapentin 100 Mg Cap PO 100 mg Q8HR RAMON Administration Hydrophilic Ointment 1 applic 10/29/21 14:29 11/09/21 08:51 Lip Therapy Vaseline TP 1 applic Q2HR PRN Administration Dry Lips Sodium Chloride 100 mls @ 999 mls/hr 12/01/21 14:44 Nacl 0.9% IV ZACH PRN Hypotension Insulin Human Lispro 0 unit 11/25/21 22:00 12/14/21 17:33 Insulin Lispro 100 Unit/Ml SUB-Q Not Given ACHS [facility] Protocol Lactulose 20 gm 11/18/21 14:43 12/06/21 15:26 Lactulose 20 Gm/30 Ml Oral Liqd PO 20 gm Q6H PRN Administration Constipation Melatonin 10 mg 11/22/21 17:31 12/13/21 22:09 Melatonin 5 Mg Tab PO 10 mg QHS PRN Administration Sleep Metoprolol Tartrate 100 mg 12/07/21 11:00 12/14/21 10:44 Metoprolol Tartrate 50 Mg Tab PO 100 mg BID RAMON Administration Midodrine 10 mg 12/01/21 12:00 12/14/21 17:33 Midodrine 5 Mg Tab PO 10 mg TID@0800,1200,1600 RAMON Administration Morphine Sulfate 1 mg 11/28/21 15:00 12/10/21 16:34 Morphine 2 Mg/1 Ml Inj IV 1 mg Q4H PRN Administration Pain, Moderate (4-6) Multi-Ingred Cream/Lotion/Oil/Oint 1 applic 10/29/21 14:29 11/06/21 09:25 Mineral Oil/Petrolatum, White Ophth Oint 3.5 Gm OU 1 applic Q4HR PRN Administration Dry Eye(s) Oxycodone/Acetaminophen 1 tab 11/27/21 14:31 12/13/21 03:29 Oxycodone /Acetaminophen 5-325mg Tab PO 1 tab Q4H PRN Administration Pain, Moderate (4-6) Polyethylene Glycol 17 gm 11/20/21 12:47 12/08/21 09:54 Polyethylene Glycol 3350 17 Gm Powder PO 17 gm QDAY PRN Administration Constipation Senna/Docusate Sodium 1 tab 11/16/21 22:00 12/14/21 10:44 Sennosides/Docusate Sodium 8.6/50 Mg Tab PO 1 tab BID RAMON Administration Sodium Chloride 10 ml 10/29/21 22:00 12/14/21 10:45 Sodium Chloride 0.9% 10 Ml Flush Syringe IV 10 ml BID RAMON Administration Sodium Chloride 10 ml 10/29/21 17:04 Sodium Chloride 0.9% 10 Ml Flush Syringe IV PRN PRN LINE FLUSH Nutrition/Malnutrition Assess - Dietary Evaluation Nutrition/Malnutrition Findings: Nutrition Notes Start: 10/30/21 09:50 Freq: Status: Active Protocol: Document 12/14/21 17:12 MEENU (Rec: 12/14/21 17:44 MEENU [email or web address]) Nutrition Notes Initial or Follow up Reassessment Current Diagnosis Acute Kidney Injury,Sepsis, Hypertension,Respiratory Failure Other Pertinent Diagnosis s/p Cardiopulmonary Arrest, Anemia, SIERRA/CKD+HD prn, Pneumonia, Hyponatremia Current Diet Renal Diet (since B 12/14). Labs/Tests 12/14: Na 132, BUN 43, Crea 1. 9. Pertinent Medications 12/14: Albumin 50 gm, others nutritionally unremarkable. Height 5 ft 10 in Weight 117.6 kg [place] Body Weight (kg) 68.18 BMI 37.2 Weight change and time frame 2.8 Kg body weigh gain reported in 9 days. Weight Status Obese Subjective/Other Information RD consult for routine F/U on Dietary tolerance. No indication for Mechanical Soft diet found, I discontinued the indication, will assess at F/U. RN note 12/13: Assist with dinner. eat 40% of meal. Per MD, fluid restriction to 1 ,000 ml/day, according to Progress note. Percent of energy/protein needs met: Prescribed Renal Diet provides for energy/protein needs (2, 072 Kcal/77 g) during LOS. Burn Absent Trauma Absent GI Symptoms None Food Allergy No Skin Integrity/Comment Assessment WNL. Current % PO Poor (25-49%) Minimum of two criteria No #1 Nutrition Diagnosis Inadequate oral intake Comments: Pt's PO intake of meals has been at 40%, and well tolerated, according to RN notes. Diet advanced to Renal. Diagnosis Progress(for reassessment Continues documentation) Is patient on ventilator? No Is Patient Ambulatory and/or Out of Bed No REE-([facility]-confined to bed) 2154.516 Kcal/Kg value to use for calculation 14 Approximate Energy Requirements Using 1646 kcal/Kg Calculation Used for Recommendations Kcal/kg Additional Notes Protein: >1.2 g/Kg AdjBW; >110 g/day. Fluids: 1-1.5 L/day, or as per MD. Nutrition Intervention Change Diet Order: Resume Renal Diet. Add Supplement/Snack (indicate name/kcal 8 fl oz nepro w/CARBSTEADY; /protein ) BID. Provides kCal: 850 Provides Protein (gm) 38 Goal #1 Compensate, through dietary supplementation, for possible poor or insufficient PO intake of meals during LOS. Goal #2 Maintain body weight within +/ -3% of admission body weight during LOS. Follow-Up By: 12/21/21 Additional Comments Continue monitoring food tolerance, %PO intake of meals , and BM.
[2021-12-15 04:19] LABS: Hematocrit 21.4 % (30.3-42.9); Hemoglobin 6.9 gm/dl (10.1-14.3); Mean Corpuscular HGB Conc 32 % (30-34); Mean Corpuscular Volume 90 fl (79-97); Platelet Count 268 K/mm3 (140-440); Red Blood Count 2.37 M/mm3 (3.65-5.03); Red Cell Distribution Width 18.4 % (13.2-15.2)
[2021-12-15] MEDS: GABAPENTIN 100 MG CAP PO SCH ×3 (05:25→22:35)
[2021-12-15 06:40] LABS: Calcium 9.1 mg/dL (8.4-10.2)
[2021-12-15] MEDS: INSULIN LISPRO 100 UNIT/ML SUB-Q SCH ×4 (08:00→22:36)
--- NOTE | 2021-12-15 08:35 | Progress Note ---
Assessment and Plan Acute Renal Failure secondary to Ischemic ATN secondary to Sepsis, Cardiac arrest and Hypotension S/P Cardiac Arrest Acute Hypoxemic Respiratory Failure Acute DVT Sepsis CHF Anemia Hyperkalemia Hyponatremia Plan: Cr is trending down, BUN about the same, remains to have minimal UOP will order for ultrafiltration only will check creatinine clearance again fluid restriction 1000 cc a day CHF-LVEF 25-30 % Anemia-On Epogen Obtain daily weights Strict I/O's daily Renally dose medications Avoid nephrotoxic agents Continue to monitor renal function closely Assess dialysis needs daily Subjective Date of service: 12/15/21 Principal diagnosis: AHRF; Cardiac arrest; R. pneumothorax; pneumonia; AMS; DVT's; SIERRA; Obesity Interval history: no overnight events reported Objective - Vital Signs Vital signs: Vital Signs - 12hr 12/14/21 12/14/21 12/14/21 22:00 22:17 23:06 Temperature 97.8 F Pulse Rate 102 H 48 L Respiratory 16 Rate Blood Pressure 104/58 O2 Sat by Pulse 100 100 Oximetry 12/15/21 12/15/21 02:02 03:19 Temperature 98.0 F Pulse Rate 48 L Respiratory 16 Rate Blood Pressure 121/63 O2 Sat by Pulse 98 100 Oximetry - Lab 12/15/21 03:59 12/15/21 06:06 Most recent lab results ABG pH 7.333 pH Units (7.350-7.450) L 12/12/21 14:10 ABG pCO2 50.1 mm Hg 12/12/21 14:10 ABG pO2 57.0 mm Hg (80.0-90.0) L 12/12/21 14:10 ABG HCO3 26.0 mmol/L (20.0-26.0) 12/12/21 14:10 ABG O2 Saturation 88.0 % (95.0-99.0) L 12/12/21 14:10 Calcium 9.1 mg/dL (8.4-10.2) 12/15/21 06:06 Phosphorus 5.20 mg/dL (2.5-4.5) H 12/02/21 03:22 Magnesium 1.60 mg/dL (1.7-2.3) L 11/19/21 14:38 Urine Creatinine 190.9 mg/dL (0.1-20.0) H 11/04/21 Unknown Urine Sodium 10 mmol/L 11/04/21 Unknown Urine Total Protein 172 mg/dL (5-11.8) H 11/04/21 Unknown Medications & Allergies - Medications Allergies/Adverse Reactions: Allergies No Known Allergies Allergy (Verified 10/29/21 14:01) Home Medications: Home Medications Medication Instructions Recorded Confirmed Last Taken Type Unobtainable 11/10/21 11/10/21 Unknown History Active Medications: Generic Name Dose Route Start Last Admin Trade Name Freq PRN Reason Stop Dose Admin Acetaminophen 650 mg 10/29/21 17:04 11/12/21 22:53 Acetaminophen 650 Mg Rect Supp [place] 650 mg Q6H PRN Administration Pain MILD(1-3)/Fever >100.5/NIEVES Acetaminophen 650 mg 11/19/21 16:35 12/12/21 15:55 Acetaminophen 325 Mg Tab PO 650 mg Q6HR PRN Administration PAIN Albumin Human 50 gm 12/02/21 11:00 12/02/21 11:55 Albumin Human 25% (25 Gm/100 Ml) Inj IV 50 gm ZACH PRN Administration Hypotension Alprazolam 0.25 mg 11/14/21 14:29 12/11/21 09:16 Alprazolam 0.25 Mg Tab PO 0.25 mg Q8H PRN Administration Anxiety Amiodarone HCl 200 mg 12/13/21 22:00 12/14/21 22:16 Amiodarone 200 Mg Tab PO 200 mg BID RAMON Administration Apixaban 5 mg 12/12/21 10:00 12/14/21 22:16 Apixaban 5 Mg Tab PO 5 mg Q12HR RAMON Administration Protocol Docusate Sodium 100 mg 11/18/21 15:00 12/14/21 22:15 Docusate Sodium 100 Mg Cap PO Not Given BID RAMON Epoetin [place]-epbx 10,000 unit 12/06/21 10:00 12/07/21 15:30 Epoetin [place]-Epbx 10,000 Unit/1 Ml Vial IV 10,000 unit ZACH PRN Administration hemodialysis Famotidine 10 mg 11/06/21 10:00 12/14/21 22:21 Famotidine 10 Mg Tab PO 10 mg BID RAMON Administration Gabapentin 100 mg 11/28/21 14:00 12/15/21 05:25 Gabapentin 100 Mg Cap PO 100 mg Q8HR RAMON Administration Hydrophilic Ointment 1 applic 10/29/21 14:29 11/09/21 08:51 Lip Therapy Vaseline TP 1 applic Q2HR PRN Administration Dry Lips Sodium Chloride 100 mls @ 999 mls/hr 12/01/21 14:44 Nacl 0.9% IV ZACH PRN Hypotension Insulin Human Lispro 0 unit 11/25/21 22:00 12/14/21 22:16 Insulin Lispro 100 Unit/Ml SUB-Q Not Given ACHS [facility] Protocol Lactulose 20 gm 11/18/21 14:43 12/06/21 15:26 Lactulose 20 Gm/30 Ml Oral Liqd PO 20 gm Q6H PRN Administration Constipation Melatonin 10 mg 11/22/21 17:31 12/13/21 22:09 Melatonin 5 Mg Tab PO 10 mg QHS PRN Administration Sleep Metoprolol Tartrate 100 mg 12/07/21 11:00 12/14/21 22:17 Metoprolol Tartrate 50 Mg Tab PO 100 mg BID RAMON Administration Midodrine 10 mg 12/01/21 12:00 12/14/21 17:33 Midodrine 5 Mg Tab PO 10 mg TID@0800,1200,1600 [facility] Administration Morphine Sulfate 1 mg 11/28/21 15:00 12/10/21 16:34 Morphine 2 Mg/1 Ml Inj IV 1 mg Q4H PRN Administration Pain, Moderate (4-6) Multi-Ingred Cream/Lotion/Oil/Oint 1 applic 10/29/21 14:29 11/06/21 09:25 Mineral Oil/Petrolatum, White Ophth Oint 3.5 Gm OU 1 applic Q4HR PRN Administration Dry Eye(s) Oxycodone/Acetaminophen 1 tab 11/27/21 14:31 12/13/21 03:29 Oxycodone /Acetaminophen 5-325mg Tab PO 1 tab Q4H PRN Administration Pain, Moderate (4-6) Polyethylene Glycol 17 gm 11/20/21 12:47 12/08/21 09:54 Polyethylene Glycol 3350 17 Gm Powder PO 17 gm QDAY PRN Administration Constipation Senna/Docusate Sodium 1 tab 11/16/21 22:00 12/14/21 22:18 Sennosides/Docusate Sodium 8.6/50 Mg Tab PO Not Given BID [facility] Sodium Chloride 10 ml 10/29/21 22:00 12/14/21 22:18 Sodium Chloride 0.9% 10 Ml Flush Syringe IV 10 ml BID RAMON Administration Sodium Chloride 10 ml 10/29/21 17:04 Sodium Chloride 0.9% 10 Ml Flush Syringe IV PRN PRN LINE FLUSH
[2021-12-15] MEDS: AMIODARONE 200 MG TAB PO SCH ×2 (10:10→22:39)
[2021-12-15] MEDS: APIXABAN 5 MG TAB PO SCH ×2 (10:14→22:34)
[2021-12-15] MEDS: FAMOTIDINE 10 MG TAB PO SCH ×2 (10:15→22:34)
[2021-12-15] MEDS: DOCUSATE SODIUM 100 MG CAP PO SCH ×2 (10:16→22:34)
[2021-12-15] MEDS: METOPROLOL TARTRATE 50 MG TAB PO SCH ×2 (10:38→22:35)
[2021-12-15] MEDS: MIDODRINE 5 MG TAB PO SCH ×3 (10:54→19:57)
[2021-12-15] MEDS: ALPRAZolam 0.25 MG TAB PO PRN (11:02)
[2021-12-15] MEDS ORDERED: SODIUM CHLORIDE 0.9% 500 ML 500 ML IV SCH (11:54)
[2021-12-15] MEDS: ALBUMIN HUMAN 25% (25 GM/100 ML) INJ IV PRN (13:00)
--- NOTE | 2021-12-15 13:58 | Progress Note ---
Assessment and Plan Acute hypoxemic respiratory failure on MVS Cardiac arrest with ROSC Acute DVT Right pneumothorax Shock (septic +/- cardiogenic) Possible aspiration pneumonia SIERRA Altered mental status/acute encephalopathy Elevated serum transaminases, likely shock liver Metabolic acidosis Obesity Retro-peritoneal Hematoma Leukocytosis Hypokalemia Lactic acidosis - continue life vest; ACS w/up per cardiology - continue HD/UF for toxin and volume clearance - continue care as below otherwise; - continue to wean supplemental oxygen for target O2 sat's > 90% acutely - continue Midodrine for BP support - continue anticoagulation while following H&H closely - continue BIPAP scheduled qhs with prn daytime use - aspiration precautions - continue bronchodilators with pulmonary hygiene per RT - continue accuchecks with glycemic control per SSI (While critically ill target blood glucose of 140-180 mg/dL; avoid hypoglycemia) - avoid nephrotoxins, renally dose all medications - continue to avoid benzodiazepine's, reduce the possibility of delirium - AB's per ID rec's (Cefepime) - prn analgesia per pain score - Maintenance of sleep-wake cycle, avoid delirium - G.I. & VTE prophylaxis - PT/OT/ROM exercises - continue mobility protocols for pressure ulcer prophylaxis - Monitor hemodynamics closely - continue other care per attending / other consultants - discharge planning ongoing concurrently COVID SPECIFIC INTERVENTIONS - COVID-19 PCR negative .... Re-evaluate in am & prn Subjective Date of service: 12/15/21 Principal diagnosis: AHRF; Cardiac arrest; R. pneumothorax; pneumonia; AMS; DVT's; SIERRA; Obesity Interval history: Patient is seen today for: Acute hypoxemic respiratory failure; Cardiac arrest with ROSC; Right pneumothorax; pneumonia; AMS; bilateral DVT's; SIERRA; Obesity Seen and examined at bedside; 24hour events reviewed; nursing and respiratory care staff consulted; no adverse overnight events reported to me; resting in bed; remains on supplemental oxygen; stress test negative; no new issues respiratory-nova Objective Vital Signs - 12hr 12/15/21 12/15/21 12/15/21 02:02 03:19 07:42 Temperature 98.0 F 97.9 F Pulse Rate 48 L 55 L Respiratory 16 16 Rate Blood Pressure 121/63 121/94 O2 Sat by Pulse 98 100 94 Oximetry 12/15/21 12/15/21 10:38 11:12 Temperature 98.2 F Pulse Rate 55 L 121 H Respiratory 16 Rate Blood Pressure 103/54 O2 Sat by Pulse 100 Oximetry Constitutional: no acute distress, alert, other (elderly obese female with mildly increased respiratory effort at rest ) Eyes: non-icteric ENT: oropharynx moist Neck: supple, no lymphadenopathy, no JVD, other (large circumference) Effort: mildly labored Ascultation: Bilateral: diminished breath sounds, rhonchi (bases) Percussion: Bilateral: not dull Cardiovascular: regular rate and rhythm, other (no R/M) Gastrointestinal: normoactive bowel sounds, soft, non-tender, other (obese) Integumentary: normal, other (Left flank ecchymosis with induration) Extremities: no cyanosis, pulses normal, no ischemia or petechiae, edema (2+) Neurologic: normal mental status, non-focal exam (grossly), pupils equal and round, motor strength normal and (weak) Psychiatric: mood appropriate, affect normal CBC and BMP: 12/17/21 05:59 12/17/21 05:59 ABG, PT/INR, D-dimer: ABG ABG pH 7.333 pH Units (7.350-7.450) L 12/12/21 14:10 ABG pCO2 50.1 mm Hg 12/12/21 14:10 ABG pO2 57.0 mm Hg (80.0-90.0) L 12/12/21 14:10 ABG O2 Saturation 88.0 % (95.0-99.0) L 12/12/21 14:10 PT/INR, D-dimer PT 13.4 Sec. (12.2-14.9) 12/11/21 13:08 INR 0.92 (0.87-1.13) 12/11/21 13:08 D-Dimer > 79112 ng/mlDDU (0-234) H 10/30/21 Unknown Abnormal lab findings: Abnormal Labs 10/29/21 10/29/21 10/29/21 15:10 15:10 15:10 WBC 27.8 H RBC Hgb Hct MCH 27 L RDW Plt Count Lymph % (Auto) [place] % (Auto) Lymph # (Auto) [place] # (Auto) Seg Neutrophils % Seg Neuts % (Manual) 78.0 H Lymphocytes % (Manual) 10.0 L Monocytes % (Manual) Basophils % (Manual) Nucleated RBC % Seg Neutrophils # Seg Neutrophils # Man 21.7 H Lymphocytes # (Manual) Monocytes # (Manual) 1.4 H Eosinophils # (Manual) Basophils # (Manual) PT INR APTT D-Dimer Heparin Anti-Xa Level ABG pH ABG pO2 ABG HCO3 ABG O2 Saturation ABG Base Excess ABG Hemoglobin Oxyhemoglobin Sodium Potassium Chloride Carbon Dioxide BUN Creatinine Glucose POC Glucose Hemoglobin A1c Lactic Acid 6.80 H* Calcium Phosphorus Magnesium Ferritin AST ALT Alkaline Phosphatase Lactate Dehydrogenase Troponin T 0.089 H C-Reactive Protein Total Protein Albumin LDL Cholesterol Direct Urine Creatinine Urine Total Protein Salicylates Acetaminophen Crossmatch 10/29/21 10/29/21 10/29/21 15:10 15:10 15:10 WBC RBC Hgb Hct MCH RDW Plt Count Lymph % (Auto) [place] % (Auto) Lymph # (Auto) [place] # (Auto) Seg Neutrophils % Seg Neuts % (Manual) Lymphocytes % (Manual) Monocytes % (Manual) Basophils % (Manual) Nucleated RBC % Seg Neutrophils # Seg Neutrophils # Man Lymphocytes # (Manual) Monocytes # (Manual) Eosinophils # (Manual) Basophils # (Manual) PT INR APTT D-Dimer Heparin Anti-Xa Level ABG pH ABG pO2 ABG HCO3 ABG O2 Saturation ABG Base Excess ABG Hemoglobin Oxyhemoglobin Sodium 136 L Potassium 2.8 L* Chloride 93.4 L Carbon Dioxide 20 L BUN Creatinine Glucose 330 H POC Glucose Hemoglobin A1c Lactic Acid Calcium Phosphorus Magnesium Ferritin AST 1013 H ALT 1289 H Alkaline Phosphatase 246 H Lactate Dehydrogenase Troponin T C-Reactive Protein Total Protein Albumin LDL Cholesterol Direct Urine Creatinine Urine Total Protein Salicylates < 0.3 L Acetaminophen 5.0 L Crossmatch 10/29/21 10/29/21 10/29/21 15:11 16:01 19:29 WBC RBC Hgb Hct MCH RDW Plt Count Lymph % (Auto) [place] % (Auto) Lymph # (Auto) [place] # (Auto) Seg Neutrophils % Seg Neuts % (Manual) Lymphocytes % (Manual) Monocytes % (Manual) Basophils % (Manual) Nucleated RBC % Seg Neutrophils # Seg Neutrophils # Man Lymphocytes # (Manual) Monocytes # (Manual) Eosinophils # (Manual) Basophils # (Manual) PT INR APTT D-Dimer Heparin Anti-Xa Level ABG pH 7.307 L ABG pO2 64.1 L ABG HCO3 ABG O2 Saturation 90.8 L ABG Base Excess -2.9 L ABG Hemoglobin Oxyhemoglobin 89.3 L Sodium Potassium Chloride Carbon Dioxide BUN Creatinine Glucose POC Glucose Hemoglobin A1c Lactic Acid 2.60 H* Calcium Phosphorus Magnesium 2.90 H Ferritin AST ALT Alkaline Phosphatase Lactate Dehydrogenase Troponin T C-Reactive Protein Total Protein Albumin LDL Cholesterol Direct Urine Creatinine Urine Total Protein Salicylates Acetaminophen Crossmatch 10/29/21 10/29/21 10/30/21 19:40 22:34 04:30 WBC 16.2 H RBC Hgb Hct MCH 26 L RDW 15.5 H Plt Count Lymph % (Auto) 6.2 L [place] % (Auto) Lymph # (Auto) 1.0 L [place] # (Auto) 0.9 H Seg Neutrophils % 88.1 H Seg Neuts % (Manual) Lymphocytes % (Manual) Monocytes % (Manual) Basophils % (Manual) Nucleated RBC % Seg Neutrophils # 14.2 H Seg Neutrophils # Man Lymphocytes # (Manual) Monocytes # (Manual) Eosinophils # (Manual) Basophils # (Manual) PT INR APTT D-Dimer Heparin Anti-Xa Level ABG pH ABG pO2 ABG HCO3 ABG O2 Saturation ABG Base Excess ABG Hemoglobin Oxyhemoglobin Sodium Potassium Chloride Carbon Dioxide BUN Creatinine Glucose POC Glucose Hemoglobin A1c Lactic Acid Calcium Phosphorus Magnesium Ferritin AST ALT Alkaline Phosphatase Lactate Dehydrogenase Troponin T 1.950 H* D 1.150 H* D C-Reactive Protein Total Protein Albumin LDL Cholesterol Direct 43 L Urine Creatinine Urine Total Protein Salicylates Acetaminophen Crossmatch 10/30/21 10/30/21 10/30/21 04:30 04:35 05:45 WBC RBC Hgb Hct MCH RDW Plt Count Lymph % (Auto) [place] % (Auto) Lymph # (Auto) [place] # (Auto) Seg Neutrophils % Seg Neuts % (Manual) Lymphocytes % (Manual) Monocytes % (Manual) Basophils % (Manual) Nucleated RBC % Seg Neutrophils # Seg Neutrophils # Man Lymphocytes # (Manual) Monocytes # (Manual) Eosinophils # (Manual) Basophils # (Manual) PT INR APTT D-Dimer Heparin Anti-Xa Level ABG pH ABG pO2 69.5 L ABG HCO3 ABG O2 Saturation ABG Base Excess -2.7 L ABG Hemoglobin Oxyhemoglobin 94.7 L Sodium Potassium Chloride Carbon Dioxide 21 L BUN Creatinine Glucose 159 H POC Glucose 151 H Hemoglobin A1c Lactic Acid Calcium 7.9 L D Phosphorus Magnesium Ferritin AST 461 H ALT 686 H Alkaline Phosphatase 130 H Lactate Dehydrogenase Troponin T C-Reactive Protein Total Protein 5.6 L D Albumin 3.2 L LDL Cholesterol Direct Urine Creatinine Urine Total Protein Salicylates Acetaminophen Crossmatch 10/30/21 10/30/21 10/30/21 11:24 15:59 16:30 WBC RBC Hgb Hct MCH RDW Plt Count Lymph % (Auto) [place] % (Auto) Lymph # (Auto) [place] # (Auto) Seg Neutrophils % Seg Neuts % (Manual) Lymphocytes % (Manual) Monocytes % (Manual) Basophils % (Manual) Nucleated RBC % Seg Neutrophils # Seg Neutrophils # Man Lymphocytes # (Manual) Monocytes # (Manual) Eosinophils # (Manual) Basophils # (Manual) PT 17.2 H INR 1.27 H APTT 44.4 H D-Dimer Heparin Anti-Xa Level ABG pH ABG pO2 ABG HCO3 ABG O2 Saturation ABG Base Excess ABG Hemoglobin Oxyhemoglobin Sodium Potassium Chloride Carbon Dioxide BUN Creatinine Glucose POC Glucose 153 H 109 H Hemoglobin A1c Lactic Acid Calcium Phosphorus Magnesium Ferritin AST ALT Alkaline Phosphatase Lactate Dehydrogenase Troponin T C-Reactive Protein Total Protein Albumin LDL Cholesterol Direct Urine Creatinine Urine Total Protein Salicylates Acetaminophen Crossmatch 10/30/21 10/30/21 10/30/21 23:00 Unknown Unknown WBC RBC Hgb Hct MCH RDW Plt Count Lymph % (Auto) [place] % (Auto) Lymph # (Auto) [place] # (Auto) Seg Neutrophils % Seg Neuts % (Manual) Lymphocytes % (Manual) Monocytes % (Manual) Basophils % (Manual) Nucleated RBC % Seg Neutrophils # Seg Neutrophils # Man Lymphocytes # (Manual) Monocytes # (Manual) Eosinophils # (Manual) Basophils # (Manual) PT INR APTT D-Dimer > 29198 H Heparin Anti-Xa Level 0.82 H ABG pH ABG pO2 ABG HCO3 ABG O2 Saturation ABG Base Excess ABG Hemoglobin Oxyhemoglobin Sodium Potassium Chloride Carbon Dioxide BUN Creatinine Glucose POC Glucose Hemoglobin A1c Lactic Acid Calcium Phosphorus Magnesium Ferritin 208.4 H AST ALT Alkaline Phosphatase Lactate Dehydrogenase Troponin T C-Reactive Protein Total Protein Albumin LDL Cholesterol Direct Urine Creatinine Urine Total Protein Salicylates Acetaminophen Crossmatch 10/30/21 10/31/21 10/31/21 Unknown 04:30 04:30 WBC 14.4 H RBC Hgb Hct MCH 26 L RDW Plt Count Lymph % (Auto) [place] % (Auto) Lymph # (Auto) [place] # (Auto) Seg Neutrophils % Seg Neuts % (Manual) Lymphocytes % (Manual) Monocytes % (Manual) Basophils % (Manual) Nucleated RBC % Seg Neutrophils # Seg Neutrophils # Man Lymphocytes # (Manual) Monocytes # (Manual) Eosinophils # (Manual) Basophils # (Manual) PT INR APTT D-Dimer Heparin Anti-Xa Level ABG pH ABG pO2 ABG HCO3 ABG O2 Saturation ABG Base Excess ABG Hemoglobin Oxyhemoglobin Sodium Potassium 3.5 L Chloride 107.5 H Carbon Dioxide 20 L BUN 28 H Creatinine 1.7 H Glucose 113 H POC Glucose Hemoglobin A1c Lactic Acid Calcium 7.9 L Phosphorus Magnesium Ferritin AST ALT Alkaline Phosphatase Lactate Dehydrogenase 469 H Troponin T C-Reactive Protein 13.40 H Total Protein Albumin LDL Cholesterol Direct Urine Creatinine Urine Total Protein Salicylates Acetaminophen Crossmatch 10/31/21 10/31/21 10/31/21 04:30 05:11 15:30 WBC RBC Hgb Hct MCH RDW Plt Count Lymph % (Auto) [place] % (Auto) Lymph # (Auto) [place] # (Auto) Seg Neutrophils % Seg Neuts % (Manual) Lymphocytes % (Manual) Monocytes % (Manual) Basophils % (Manual) Nucleated RBC % Seg Neutrophils # Seg Neutrophils # Man Lymphocytes # (Manual) Monocytes # (Manual) Eosinophils # (Manual) Basophils # (Manual) PT INR APTT D-Dimer Heparin Anti-Xa Level ABG pH 7.222 L ABG pO2 61.5 L ABG HCO3 ABG O2 Saturation 86.2 L ABG Base Excess -6.3 L ABG Hemoglobin 11.2 L Oxyhemoglobin 84.5 L Sodium Potassium Chloride Carbon Dioxide BUN Creatinine Glucose POC Glucose 106 H Hemoglobin A1c 6.7 H Lactic Acid Calcium Phosphorus Magnesium Ferritin AST ALT Alkaline Phosphatase Lactate Dehydrogenase Troponin T C-Reactive Protein Total Protein Albumin LDL Cholesterol Direct Urine Creatinine Urine Total Protein Salicylates Acetaminophen Crossmatch 10/31/21 10/31/21 10/31/21 16:07 16:35 17:45 WBC RBC Hgb Hct MCH RDW Plt Count Lymph % (Auto) [place] % (Auto) Lymph # (Auto) [place] # (Auto) Seg Neutrophils % Seg Neuts % (Manual) Lymphocytes % (Manual) Monocytes % (Manual) Basophils % (Manual) Nucleated RBC % Seg Neutrophils # Seg Neutrophils # Man Lymphocytes # (Manual) Monocytes # (Manual) Eosinophils # (Manual) Basophils # (Manual) PT INR APTT D-Dimer Heparin Anti-Xa Level ABG pH 7.267 L ABG pO2 58.3 L ABG HCO3 ABG O2 Saturation 88.3 L ABG Base Excess -5.9 L ABG Hemoglobin 10.1 L Oxyhemoglobin 86.5 L Sodium Potassium Chloride Carbon Dioxide BUN Creatinine Glucose POC Glucose 115 H Hemoglobin A1c Lactic Acid Calcium Phosphorus Magnesium Ferritin AST ALT Alkaline Phosphatase Lactate Dehydrogenase Troponin T C-Reactive Protein Total Protein Albumin LDL Cholesterol Direct Urine Creatinine 383.6 H Urine Total Protein Salicylates Acetaminophen Crossmatch 11/01/21 11/01/21 11/01/21 00:06 05:08 06:00 WBC 12.6 H RBC 3.43 L Hgb 8.9 L Hct 28.7 L MCH 26 L RDW 15.7 H Plt Count 130 L Lymph % (Auto) [place] % (Auto) Lymph # (Auto) [place] # (Auto) Seg Neutrophils % Seg Neuts % (Manual) Lymphocytes % (Manual) Monocytes % (Manual) Basophils % (Manual) Nucleated RBC % Seg Neutrophils # Seg Neutrophils # Man Lymphocytes # (Manual) Monocytes # (Manual) Eosinophils # (Manual) Basophils # (Manual) PT INR APTT D-Dimer Heparin Anti-Xa Level ABG pH ABG pO2 ABG HCO3 ABG O2 Saturation ABG Base Excess ABG Hemoglobin Oxyhemoglobin Sodium Potassium Chloride Carbon Dioxide BUN Creatinine Glucose POC Glucose 114 H 120 H Hemoglobin A1c Lactic Acid Calcium Phosphorus Magnesium Ferritin AST ALT Alkaline Phosphatase Lactate Dehydrogenase Troponin T C-Reactive Protein Total Protein Albumin LDL Cholesterol Direct Urine Creatinine Urine Total Protein Salicylates Acetaminophen Crossmatch 11/01/21 11/01/21 11/01/21 06:00 11:43 14:00 WBC RBC Hgb Hct MCH RDW Plt Count Lymph % (Auto) [place] % (Auto) Lymph # (Auto) [place] # (Auto) Seg Neutrophils % Seg Neuts % (Manual) Lymphocytes % (Manual) Monocytes % (Manual) Basophils % (Manual) Nucleated RBC % Seg Neutrophils # Seg Neutrophils # Man Lymphocytes # (Manual) Monocytes # (Manual) Eosinophils # (Manual) Basophils # (Manual) PT INR APTT D-Dimer Heparin Anti-Xa Level ABG pH 7.349 L ABG pO2 75.6 L ABG HCO3 ABG O2 Saturation ABG Base Excess -3.9 L ABG Hemoglobin 9.8 L Oxyhemoglobin 93.5 L Sodium Potassium Chloride 114.1 H Carbon Dioxide 20 L BUN 33 H Creatinine Glucose 131 H POC Glucose 151 H Hemoglobin A1c Lactic Acid Calcium 7.7 L Phosphorus Magnesium Ferritin AST 79 H ALT 259 H Alkaline Phosphatase Lactate Dehydrogenase Troponin T C-Reactive Protein Total Protein 5.5 L Albumin 2.7 L LDL Cholesterol Direct Urine Creatinine Urine Total Protein Salicylates Acetaminophen Crossmatch 11/01/21 11/01/21 11/02/21 16:45 22:55 05:12 WBC RBC Hgb Hct MCH RDW Plt Count Lymph % (Auto) [place] % (Auto) Lymph # (Auto) [place] # (Auto) Seg Neutrophils % Seg Neuts % (Manual) Lymphocytes % (Manual) Monocytes % (Manual) Basophils % (Manual) Nucleated RBC % Seg Neutrophils # Seg Neutrophils # Man Lymphocytes # (Manual) Monocytes # (Manual) Eosinophils # (Manual) Basophils # (Manual) PT INR APTT D-Dimer Heparin Anti-Xa Level ABG pH ABG pO2 ABG HCO3 ABG O2 Saturation ABG Base Excess ABG Hemoglobin Oxyhemoglobin Sodium Potassium Chloride Carbon Dioxide BUN Creatinine Glucose POC Glucose 119 H 129 H 140 H Hemoglobin A1c Lactic Acid Calcium Phosphorus Magnesium Ferritin AST ALT Alkaline Phosphatase Lactate Dehydrogenase Troponin T C-Reactive Protein Total Protein Albumin LDL Cholesterol Direct Urine Creatinine Urine Total Protein Salicylates Acetaminophen Crossmatch 11/02/21 11/02/21 11/02/21 05:35 05:35 09:35 WBC 13.5 H RBC 3.60 L Hgb 9.7 L Hct MCH 27 L RDW 15.7 H Plt Count Lymph % (Auto) [place] % (Auto) Lymph # (Auto) [place] # (Auto) Seg Neutrophils % Seg Neuts % (Manual) Lymphocytes % (Manual) Monocytes % (Manual) Basophils % (Manual) Nucleated RBC % Seg Neutrophils # Seg Neutrophils # Man Lymphocytes # (Manual) Monocytes # (Manual) Eosinophils # (Manual) Basophils # (Manual) PT INR APTT D-Dimer Heparin Anti-Xa Level ABG pH 7.208 L ABG pO2 75.9 L ABG HCO3 ABG O2 Saturation 93.6 L ABG Base Excess -4.3 L ABG Hemoglobin 9.1 L Oxyhemoglobin 91.6 L Sodium Potassium 5.2 H D Chloride 112.6 H Carbon Dioxide BUN 32 H Creatinine Glucose 152 H POC Glucose Hemoglobin A1c Lactic Acid Calcium 8.2 L Phosphorus Magnesium 2.70 H Ferritin AST ALT Alkaline Phosphatase Lactate Dehydrogenase Troponin T C-Reactive Protein Total Protein Albumin LDL Cholesterol Direct Urine Creatinine Urine Total Protein Salicylates Acetaminophen Crossmatch 11/02/21 11/02/21 11/02/21 11:44 17:13 23:43 WBC RBC Hgb Hct MCH RDW Plt Count Lymph % (Auto) [place] % (Auto) Lymph # (Auto) [place] # (Auto) Seg Neutrophils % Seg Neuts % (Manual) Lymphocytes % (Manual) Monocytes % (Manual) Basophils % (Manual) Nucleated RBC % Seg Neutrophils # Seg Neutrophils # Man Lymphocytes # (Manual) Monocytes # (Manual) Eosinophils # (Manual) Basophils # (Manual) PT INR APTT D-Dimer Heparin Anti-Xa Level ABG pH ABG pO2 ABG HCO3 ABG O2 Saturation ABG Base Excess ABG Hemoglobin Oxyhemoglobin Sodium Potassium Chloride Carbon Dioxide BUN Creatinine Glucose POC Glucose 173 H 148 H 137 H Hemoglobin A1c Lactic Acid Calcium Phosphorus Magnesium Ferritin AST ALT Alkaline Phosphatase Lactate Dehydrogenase Troponin T C-Reactive Protein Total Protein Albumin LDL Cholesterol Direct Urine Creatinine Urine Total Protein Salicylates Acetaminophen Crossmatch 11/03/21 11/03/21 11/03/21 04:59 06:00 06:00 WBC RBC 3.43 L Hgb 9.1 L Hct 29.0 L MCH 26 L RDW 16.4 H Plt Count Lymph % (Auto) [place] % (Auto) Lymph # (Auto) [place] # (Auto) Seg Neutrophils % Seg Neuts % (Manual) Lymphocytes % (Manual) Monocytes % (Manual) Basophils % (Manual) Nucleated RBC % Seg Neutrophils # Seg Neutrophils # Man Lymphocytes # (Manual) Monocytes # (Manual) Eosinophils # (Manual) Basophils # (Manual) PT INR APTT D-Dimer Heparin Anti-Xa Level 0.17 L ABG pH ABG pO2 ABG HCO3 ABG O2 Saturation ABG Base Excess ABG Hemoglobin Oxyhemoglobin Sodium Potassium Chloride Carbon Dioxide BUN Creatinine Glucose POC Glucose 167 H Hemoglobin A1c Lactic Acid Calcium Phosphorus Magnesium Ferritin AST ALT Alkaline Phosphatase Lactate Dehydrogenase Troponin T C-Reactive Protein Total Protein Albumin LDL Cholesterol Direct Urine Creatinine Urine Total Protein Salicylates Acetaminophen Crossmatch 11/03/21 11/03/21 11/03/21 06:00 09:20 11:58 WBC RBC Hgb Hct MCH RDW Plt Count Lymph % (Auto) [place] % (Auto) Lymph # (Auto) [place] # (Auto) Seg Neutrophils % Seg Neuts % (Manual) Lymphocytes % (Manual) Monocytes % (Manual) Basophils % (Manual) Nucleated RBC % Seg Neutrophils # Seg Neutrophils # Man Lymphocytes # (Manual) Monocytes # (Manual) Eosinophils # (Manual) Basophils # (Manual) PT INR APTT D-Dimer Heparin Anti-Xa Level ABG pH 7.274 L ABG pO2 75.6 L ABG HCO3 ABG O2 Saturation 94.9 L ABG Base Excess -2.5 L ABG Hemoglobin 9.3 L Oxyhemoglobin 92.9 L Sodium 149 H Potassium Chloride 117.5 H Carbon Dioxide BUN 32 H Creatinine Glucose 173 H POC Glucose 192 H Hemoglobin A1c Lactic Acid Calcium 8.1 L Phosphorus Magnesium Ferritin AST ALT Alkaline Phosphatase Lactate Dehydrogenase Troponin T C-Reactive Protein Total Protein Albumin LDL Cholesterol Direct Urine Creatinine Urine Total Protein Salicylates Acetaminophen Crossmatch 11/03/21 11/03/21 11/04/21 18:22 Unknown 00:09 WBC RBC Hgb Hct MCH RDW Plt Count Lymph % (Auto) [place] % (Auto) Lymph # (Auto) [place] # (Auto) Seg Neutrophils % Seg Neuts % (Manual) Lymphocytes % (Manual) Monocytes % (Manual) Basophils % (Manual) Nucleated RBC % Seg Neutrophils # Seg Neutrophils # Man Lymphocytes # (Manual) Monocytes # (Manual) Eosinophils # (Manual) Basophils # (Manual) PT INR APTT D-Dimer Heparin Anti-Xa Level 0.29 L ABG pH ABG pO2 ABG HCO3 ABG O2 Saturation ABG Base Excess ABG Hemoglobin Oxyhemoglobin Sodium Potassium Chloride Carbon Dioxide BUN Creatinine Glucose POC Glucose 178 H 221 H Hemoglobin A1c Lactic Acid Calcium Phosphorus Magnesium Ferritin AST ALT Alkaline Phosphatase Lactate Dehydrogenase Troponin T C-Reactive Protein Total Protein Albumin LDL Cholesterol Direct Urine Creatinine Urine Total Protein Salicylates Acetaminophen Crossmatch 11/04/21 11/04/21 11/04/21 05:09 09:40 09:40 WBC 16.8 H RBC Hgb Hct MCH 27 L RDW 16.5 H Plt Count Lymph % (Auto) [place] % (Auto) Lymph # (Auto) [place] # (Auto) Seg Neutrophils % Seg Neuts % (Manual) Lymphocytes % (Manual) Monocytes % (Manual) Basophils % (Manual) Nucleated RBC % Seg Neutrophils # Seg Neutrophils # Man Lymphocytes # (Manual) Monocytes # (Manual) Eosinophils # (Manual) Basophils # (Manual) PT INR APTT D-Dimer Heparin Anti-Xa Level ABG pH ABG pO2 ABG HCO3 ABG O2 Saturation ABG Base Excess ABG Hemoglobin Oxyhemoglobin Sodium Potassium 5.9 H Chloride 108.5 H Carbon Dioxide BUN 54 H Creatinine 1.8 H Glucose 198 H POC Glucose 182 H Hemoglobin A1c Lactic Acid Calcium Phosphorus Magnesium 3.00 H Ferritin AST ALT Alkaline Phosphatase Lactate Dehydrogenase Troponin T C-Reactive Protein Total Protein Albumin LDL Cholesterol Direct Urine Creatinine Urine Total Protein Salicylates Acetaminophen Crossmatch 11/04/21 11/04/21 11/04/21 12:13 13:34 14:05 WBC RBC Hgb Hct MCH RDW Plt Count Lymph % (Auto) [place] % (Auto) Lymph # (Auto) [place] # (Auto) Seg Neutrophils % Seg Neuts % (Manual) Lymphocytes % (Manual) Monocytes % (Manual) Basophils % (Manual) Nucleated RBC % Seg Neutrophils # Seg Neutrophils # Man Lymphocytes # (Manual) Monocytes # (Manual) Eosinophils # (Manual) Basophils # (Manual) PT INR APTT D-Dimer Heparin Anti-Xa Level ABG pH 7.223 L ABG pO2 71.3 L ABG HCO3 ABG O2 Saturation 92.8 L ABG Base Excess ABG Hemoglobin 8.2 L Oxyhemoglobin 91.0 L Sodium Potassium Chloride Carbon Dioxide BUN Creatinine Glucose POC Glucose 184 H Hemoglobin A1c Lactic Acid Calcium Phosphorus Magnesium Ferritin AST ALT Alkaline Phosphatase Lactate Dehydrogenase Troponin T C-Reactive Protein Total Protein Albumin LDL Cholesterol Direct Urine Creatinine 184.6 H Urine Total Protein Salicylates Acetaminophen Crossmatch 11/04/21 11/04/21 11/05/21 18:02 Unknown 00:07 WBC RBC Hgb Hct MCH RDW Plt Count Lymph % (Auto) [place] % (Auto) Lymph # (Auto) [place] # (Auto) Seg Neutrophils % Seg Neuts % (Manual) Lymphocytes % (Manual) Monocytes % (Manual) Basophils % (Manual) Nucleated RBC % Seg Neutrophils # Seg Neutrophils # Man Lymphocytes # (Manual) Monocytes # (Manual) Eosinophils # (Manual) Basophils # (Manual) PT INR APTT D-Dimer Heparin Anti-Xa Level ABG pH ABG pO2 ABG HCO3 ABG O2 Saturation ABG Base Excess ABG Hemoglobin Oxyhemoglobin Sodium Potassium Chloride Carbon Dioxide BUN Creatinine Glucose POC Glucose 262 H 259 H Hemoglobin A1c Lactic Acid Calcium Phosphorus Magnesium Ferritin AST ALT Alkaline Phosphatase Lactate Dehydrogenase Troponin T C-Reactive Protein Total Protein Albumin LDL Cholesterol Direct Urine Creatinine 190.9 H Urine Total Protein 172 H Salicylates Acetaminophen Crossmatch 11/05/21 11/05/21 11/05/21 04:20 04:20 05:30 WBC 17.9 H RBC 3.64 L Hgb 9.7 L Hct MCH 27 L RDW 16.4 H Plt Count Lymph % (Auto) [place] % (Auto) Lymph # (Auto) [place] # (Auto) Seg Neutrophils % Seg Neuts % (Manual) Lymphocytes % (Manual) Monocytes % (Manual) Basophils % (Manual) Nucleated RBC % Seg Neutrophils # Seg Neutrophils # Man Lymphocytes # (Manual) Monocytes # (Manual) Eosinophils # (Manual) Basophils # (Manual) PT INR APTT D-Dimer Heparin Anti-Xa Level ABG pH ABG pO2 ABG HCO3 ABG O2 Saturation ABG Base Excess ABG Hemoglobin Oxyhemoglobin Sodium Potassium 5.6 H Chloride 108.4 H Carbon Dioxide BUN 71 H Creatinine 1.9 H Glucose 270 H POC Glucose 283 H Hemoglobin A1c Lactic Acid Calcium Phosphorus Magnesium Ferritin AST ALT Alkaline Phosphatase Lactate Dehydrogenase Troponin T C-Reactive Protein Total Protein Albumin LDL Cholesterol Direct Urine Creatinine Urine Total Protein Salicylates Acetaminophen Crossmatch 11/05/21 11/05/21 11/05/21 10:05 12:10 15:29 WBC RBC Hgb Hct MCH RDW Plt Count Lymph % (Auto) [place] % (Auto) Lymph # (Auto) [place] # (Auto) Seg Neutrophils % Seg Neuts % (Manual) Lymphocytes % (Manual) Monocytes % (Manual) Basophils % (Manual) Nucleated RBC % Seg Neutrophils # Seg Neutrophils # Man Lymphocytes # (Manual) Monocytes # (Manual) Eosinophils # (Manual) Basophils # (Manual) PT INR APTT D-Dimer Heparin Anti-Xa Level ABG pH 7.248 L ABG pO2 73.7 L ABG HCO3 26.2 H ABG O2 Saturation 93.1 L ABG Base Excess ABG Hemoglobin 8.9 L Oxyhemoglobin 91.4 L Sodium Potassium Chloride Carbon Dioxide BUN Creatinine Glucose POC Glucose 225 H 199 H Hemoglobin A1c Lactic Acid Calcium Phosphorus Magnesium Ferritin AST ALT Alkaline Phosphatase Lactate Dehydrogenase Troponin T C-Reactive Protein Total Protein Albumin LDL Cholesterol Direct Urine Creatinine Urine Total Protein Salicylates Acetaminophen Crossmatch 11/05/21 11/05/21 11/05/21 15:51 17:32 17:40 WBC RBC Hgb Hct MCH RDW Plt Count Lymph % (Auto) [place] % (Auto) Lymph # (Auto) [place] # (Auto) Seg Neutrophils % Seg Neuts % (Manual) Lymphocytes % (Manual) Monocytes % (Manual) Basophils % (Manual) Nucleated RBC % Seg Neutrophils # Seg Neutrophils # Man Lymphocytes # (Manual) Monocytes # (Manual) Eosinophils # (Manual) Basophils # (Manual) PT INR APTT D-Dimer Heparin Anti-Xa Level ABG pH ABG pO2 ABG HCO3 ABG O2 Saturation ABG Base Excess ABG Hemoglobin Oxyhemoglobin Sodium Potassium 5.2 H Chloride 107.8 H Carbon Dioxide BUN 79 H Creatinine 1.9 H Glucose 204 H POC Glucose 278 H 197 H Hemoglobin A1c Lactic Acid Calcium Phosphorus Magnesium Ferritin AST ALT Alkaline Phosphatase Lactate Dehydrogenase Troponin T C-Reactive Protein Total Protein Albumin LDL Cholesterol Direct Urine Creatinine Urine Total Protein Salicylates Acetaminophen Crossmatch 11/05/21 11/05/21 11/05/21 21:25 22:22 23:43 WBC RBC Hgb Hct MCH RDW Plt Count Lymph % (Auto) [place] % (Auto) Lymph # (Auto) [place] # (Auto) Seg Neutrophils % Seg Neuts % (Manual) Lymphocytes % (Manual) Monocytes % (Manual) Basophils % (Manual) Nucleated RBC % Seg Neutrophils # Seg Neutrophils # Man Lymphocytes # (Manual) Monocytes # (Manual) Eosinophils # (Manual) Basophils # (Manual) PT INR APTT D-Dimer Heparin Anti-Xa Level ABG pH ABG pO2 ABG HCO3 ABG O2 Saturation ABG Base Excess ABG Hemoglobin Oxyhemoglobin Sodium Potassium 5.3 H Chloride 109.2 H Carbon Dioxide BUN 81 H Creatinine 2.0 H Glucose 195 H POC Glucose 180 H 203 H Hemoglobin A1c Lactic Acid Calcium Phosphorus Magnesium Ferritin AST ALT Alkaline Phosphatase Lactate Dehydrogenase Troponin T C-Reactive Protein Total Protein Albumin LDL Cholesterol Direct Urine Creatinine Urine Total Protein Salicylates Acetaminophen Crossmatch 11/05/21 11/06/21 11/06/21 Unknown 02:35 05:09 WBC RBC Hgb Hct MCH RDW Plt Count Lymph % (Auto) [place] % (Auto) Lymph # (Auto) [place] # (Auto) Seg Neutrophils % Seg Neuts % (Manual) Lymphocytes % (Manual) Monocytes % (Manual) Basophils % (Manual) Nucleated RBC % Seg Neutrophils # Seg Neutrophils # Man Lymphocytes # (Manual) Monocytes # (Manual) Eosinophils # (Manual) Basophils # (Manual) PT INR APTT D-Dimer Heparin Anti-Xa Level ABG pH ABG pO2 ABG HCO3 ABG O2 Saturation ABG Base Excess ABG Hemoglobin Oxyhemoglobin Sodium 146 H Potassium 6.0 H Chloride 108.1 H 107.1 H Carbon Dioxide 21 L BUN 80 H 84 H Creatinine 2.0 H 2.0 H Glucose 238 H 235 H POC Glucose 215 H Hemoglobin A1c Lactic Acid Calcium Phosphorus Magnesium 2.80 H Ferritin AST ALT 77 H Alkaline Phosphatase Lactate Dehydrogenase Troponin T C-Reactive Protein Total Protein Albumin 3.0 L LDL Cholesterol Direct Urine Creatinine Urine Total Protein Salicylates Acetaminophen Crossmatch 11/06/21 11/06/21 11/06/21 05:40 08:07 08:07 WBC RBC Hgb Hct MCH RDW Plt Count Lymph % (Auto) [place] % (Auto) Lymph # (Auto) [place] # (Auto) Seg Neutrophils % Seg Neuts % (Manual) Lymphocytes % (Manual) Monocytes % (Manual) Basophils % (Manual) Nucleated RBC % Seg Neutrophils # Seg Neutrophils # Man Lymphocytes # (Manual) Monocytes # (Manual) Eosinophils # (Manual) Basophils # (Manual) PT INR APTT D-Dimer Heparin Anti-Xa Level 1.24 H ABG pH 7.311 L ABG pO2 72.8 L ABG HCO3 29.7 H ABG O2 Saturation 94.1 L ABG Base Excess ABG Hemoglobin 11.4 L Oxyhemoglobin 92.3 L Sodium Potassium 5.2 H Chloride Carbon Dioxide BUN 85 H Creatinine 2.3 H Glucose 236 H POC Glucose Hemoglobin A1c Lactic Acid Calcium Phosphorus Magnesium Ferritin AST ALT Alkaline Phosphatase Lactate Dehydrogenase Troponin T C-Reactive Protein Total Protein Albumin LDL Cholesterol Direct Urine Creatinine Urine Total Protein Salicylates Acetaminophen Crossmatch 11/06/21 11/06/21 11/06/21 12:14 12:57 14:28 WBC RBC Hgb Hct MCH RDW Plt Count Lymph % (Auto) [place] % (Auto) Lymph # (Auto) [place] # (Auto) Seg Neutrophils % Seg Neuts % (Manual) Lymphocytes % (Manual) Monocytes % (Manual) Basophils % (Manual) Nucleated RBC % Seg Neutrophils # Seg Neutrophils # Man Lymphocytes # (Manual) Monocytes # (Manual) Eosinophils # (Manual) Basophils # (Manual) PT INR APTT D-Dimer Heparin Anti-Xa Level ABG pH 7.282 L ABG pO2 72.6 L ABG HCO3 30.8 H ABG O2 Saturation 93.7 L ABG Base Excess 3.2 H ABG Hemoglobin 8.6 L Oxyhemoglobin 91.8 L Sodium Potassium Chloride Carbon Dioxide BUN 91 H Creatinine 2.6 H Glucose 259 H POC Glucose 225 H Hemoglobin A1c Lactic Acid Calcium Phosphorus Magnesium Ferritin AST ALT Alkaline Phosphatase Lactate Dehydrogenase Troponin T C-Reactive Protein Total Protein Albumin LDL Cholesterol Direct Urine Creatinine Urine Total Protein Salicylates Acetaminophen Crossmatch 11/06/21 11/06/21 11/06/21 17:28 19:20 21:30 WBC RBC Hgb Hct MCH RDW Plt Count Lymph % (Auto) [place] % (Auto) Lymph # (Auto) [place] # (Auto) Seg Neutrophils % Seg Neuts % (Manual) Lymphocytes % (Manual) Monocytes % (Manual) Basophils % (Manual) Nucleated RBC % Seg Neutrophils # Seg Neutrophils # Man Lymphocytes # (Manual) Monocytes # (Manual) Eosinophils # (Manual) Basophils # (Manual) PT INR APTT D-Dimer Heparin Anti-Xa Level 0.73 H ABG pH ABG pO2 ABG HCO3 ABG O2 Saturation ABG Base Excess ABG Hemoglobin Oxyhemoglobin Sodium Potassium Chloride Carbon Dioxide BUN 95 H Creatinine 2.9 H Glucose 233 H POC Glucose 206 H Hemoglobin A1c Lactic Acid Calcium Phosphorus Magnesium Ferritin AST ALT Alkaline Phosphatase Lactate Dehydrogenase Troponin T C-Reactive Protein Total Protein Albumin LDL Cholesterol Direct Urine Creatinine Urine Total Protein Salicylates Acetaminophen Crossmatch 11/06/21 11/07/21 11/07/21 22:56 05:06 06:30 WBC RBC Hgb Hct MCH RDW Plt Count Lymph % (Auto) [place] % (Auto) Lymph # (Auto) [place] # (Auto) Seg Neutrophils % Seg Neuts % (Manual) Lymphocytes % (Manual) Monocytes % (Manual) Basophils % (Manual) Nucleated RBC % Seg Neutrophils # Seg Neutrophils # Man Lymphocytes # (Manual) Monocytes # (Manual) Eosinophils # (Manual) Basophils # (Manual) PT INR APTT D-Dimer Heparin Anti-Xa Level ABG pH ABG pO2 ABG HCO3 ABG O2 Saturation ABG Base Excess ABG Hemoglobin Oxyhemoglobin Sodium 146 H Potassium Chloride Carbon Dioxide BUN 98 H Creatinine 2.8 H Glucose 202 H POC Glucose 215 H 172 H Hemoglobin A1c Lactic Acid Calcium Phosphorus 4.90 H D Magnesium 2.90 H Ferritin AST ALT Alkaline Phosphatase Lactate Dehydrogenase Troponin T C-Reactive Protein Total Protein Albumin LDL Cholesterol Direct Urine Creatinine Urine Total Protein Salicylates Acetaminophen Crossmatch 11/07/21 11/07/21 11/07/21 06:30 11:26 12:15 WBC 16.0 H RBC 3.06 L Hgb 8.2 L Hct 26.1 L MCH 27 L RDW 16.2 H Plt Count Lymph % (Auto) [place] % (Auto) Lymph # (Auto) [place] # (Auto) Seg Neutrophils % Seg Neuts % (Manual) 77.0 H Lymphocytes % (Manual) 11.0 L Monocytes % (Manual) Basophils % (Manual) Nucleated RBC % 2.0 H Seg Neutrophils # Seg Neutrophils # Man 12.3 H Lymphocytes # (Manual) Monocytes # (Manual) Eosinophils # (Manual) Basophils # (Manual) PT INR APTT D-Dimer Heparin Anti-Xa Level ABG pH 7.298 L ABG pO2 73.0 L ABG HCO3 33.3 H ABG O2 Saturation 94.4 L ABG Base Excess 5.8 H ABG Hemoglobin 8.2 L Oxyhemoglobin 92.7 L Sodium Potassium Chloride Carbon Dioxide BUN Creatinine Glucose POC Glucose 179 H Hemoglobin A1c Lactic Acid Calcium Phosphorus Magnesium Ferritin AST ALT Alkaline Phosphatase Lactate Dehydrogenase Troponin T C-Reactive Protein Total Protein Albumin LDL Cholesterol Direct Urine Creatinine Urine Total Protein Salicylates Acetaminophen Crossmatch 11/07/21 11/07/21 11/07/21 17:57 22:16 23:49 WBC RBC Hgb Hct MCH RDW Plt Count Lymph % (Auto) [place] % (Auto) Lymph # (Auto) [place] # (Auto) Seg Neutrophils % Seg Neuts % (Manual) Lymphocytes % (Manual) Monocytes % (Manual) Basophils % (Manual) Nucleated RBC % Seg Neutrophils # Seg Neutrophils # Man Lymphocytes # (Manual) Monocytes # (Manual) Eosinophils # (Manual) Basophils # (Manual) PT INR APTT D-Dimer Heparin Anti-Xa Level ABG pH ABG pO2 ABG HCO3 ABG O2 Saturation ABG Base Excess ABG Hemoglobin Oxyhemoglobin Sodium Potassium Chloride Carbon Dioxide BUN Creatinine Glucose POC Glucose 166 H 223 H 190 H Hemoglobin A1c Lactic Acid Calcium Phosphorus Magnesium Ferritin AST ALT Alkaline Phosphatase Lactate Dehydrogenase Troponin T C-Reactive Protein Total Protein Albumin LDL Cholesterol Direct Urine Creatinine Urine Total Protein Salicylates Acetaminophen Crossmatch 11/08/21 11/08/21 11/08/21 04:20 04:20 06:16 WBC 22.1 H RBC 3.01 L Hgb 8.1 L Hct 25.6 L MCH 27 L RDW 15.4 H Plt Count Lymph % (Auto) [place] % (Auto) Lymph # (Auto) [place] # (Auto) Seg Neutrophils % Seg Neuts % (Manual) Lymphocytes % (Manual) Monocytes % (Manual) Basophils % (Manual) Nucleated RBC % Seg Neutrophils # Seg Neutrophils # Man Lymphocytes # (Manual) Monocytes # (Manual) Eosinophils # (Manual) Basophils # (Manual) PT INR APTT D-Dimer Heparin Anti-Xa Level ABG pH ABG pO2 ABG HCO3 ABG O2 Saturation ABG Base Excess ABG Hemoglobin Oxyhemoglobin Sodium 151 H Potassium 3.1 L D Chloride 107.3 H Carbon Dioxide 31 H BUN 82 H Creatinine 1.8 H Glucose 232 H POC Glucose 198 H Hemoglobin A1c Lactic Acid Calcium 8.1 L Phosphorus Magnesium Ferritin AST ALT Alkaline Phosphatase Lactate Dehydrogenase Troponin T C-Reactive Protein Total Protein Albumin LDL Cholesterol Direct Urine Creatinine Urine Total Protein Salicylates Acetaminophen Crossmatch 11/08/21 11/08/21 11/08/21 11:38 12:00 18:29 WBC RBC Hgb Hct MCH RDW Plt Count Lymph % (Auto) [place] % (Auto) Lymph # (Auto) [place] # (Auto) Seg Neutrophils % Seg Neuts % (Manual) Lymphocytes % (Manual) Monocytes % (Manual) Basophils % (Manual) Nucleated RBC % Seg Neutrophils # Seg Neutrophils # Man Lymphocytes # (Manual) Monocytes # (Manual) Eosinophils # (Manual) Basophils # (Manual) PT INR APTT D-Dimer Heparin Anti-Xa Level ABG pH ABG pO2 ABG HCO3 ABG O2 Saturation ABG Base Excess ABG Hemoglobin Oxyhemoglobin Sodium Potassium 3.0 L Chloride Carbon Dioxide BUN Creatinine Glucose POC Glucose 190 H 211 H Hemoglobin A1c Lactic Acid Calcium Phosphorus Magnesium Ferritin AST ALT Alkaline Phosphatase Lactate Dehydrogenase Troponin T C-Reactive Protein Total Protein Albumin LDL Cholesterol Direct Urine Creatinine Urine Total Protein Salicylates Acetaminophen Crossmatch 11/08/21 11/08/21 11/09/21 21:34 21:40 00:36 WBC RBC Hgb Hct MCH RDW Plt Count Lymph % (Auto) [place] % (Auto) Lymph # (Auto) [place] # (Auto) Seg Neutrophils % Seg Neuts % (Manual) Lymphocytes % (Manual) Monocytes % (Manual) Basophils % (Manual) Nucleated RBC % Seg Neutrophils # Seg Neutrophils # Man Lymphocytes # (Manual) Monocytes # (Manual) Eosinophils # (Manual) Basophils # (Manual) PT INR APTT D-Dimer Heparin Anti-Xa Level ABG pH ABG pO2 ABG HCO3 ABG O2 Saturation ABG Base Excess ABG Hemoglobin Oxyhemoglobin Sodium 148 H Potassium 2.8 L* Chloride Carbon Dioxide 31 H BUN 68 H Creatinine 1.5 H Glucose 191 H POC Glucose 194 H 140 H Hemoglobin A1c Lactic Acid Calcium 8.2 L Phosphorus Magnesium Ferritin AST ALT Alkaline Phosphatase Lactate Dehydrogenase Troponin T C-Reactive Protein Total Protein Albumin LDL Cholesterol Direct Urine Creatinine Urine Total Protein Salicylates Acetaminophen Crossmatch 11/09/21 11/09/21 11/09/21 04:51 04:51 04:51 WBC 27.6 H RBC 3.18 L Hgb 8.4 L Hct 26.6 L MCH 27 L RDW 15.3 H Plt Count Lymph % (Auto) [place] % (Auto) Lymph # (Auto) [place] # (Auto) Seg Neutrophils % Seg Neuts % (Manual) Lymphocytes % (Manual) Monocytes % (Manual) Basophils % (Manual) Nucleated RBC % Seg Neutrophils # Seg Neutrophils # Man Lymphocytes # (Manual) Monocytes # (Manual) Eosinophils # (Manual) Basophils # (Manual) PT INR APTT D-Dimer Heparin Anti-Xa Level 0.18 L ABG pH ABG pO2 ABG HCO3 ABG O2 Saturation ABG Base Excess ABG Hemoglobin Oxyhemoglobin Sodium 148 H Potassium 2.7 L* Chloride Carbon Dioxide BUN 59 H Creatinine 1.4 H Glucose 143 H POC Glucose Hemoglobin A1c Lactic Acid Calcium 8.3 L Phosphorus Magnesium Ferritin AST ALT Alkaline Phosphatase Lactate Dehydrogenase Troponin T C-Reactive Protein Total Protein Albumin LDL Cholesterol Direct Urine Creatinine Urine Total Protein Salicylates Acetaminophen Crossmatch 11/09/21 11/09/21 11/09/21 05:52 08:45 11:00 WBC RBC Hgb Hct MCH RDW Plt Count Lymph % (Auto) [place] % (Auto) Lymph # (Auto) [place] # (Auto) Seg Neutrophils % Seg Neuts % (Manual) Lymphocytes % (Manual) Monocytes % (Manual) Basophils % (Manual) Nucleated RBC % Seg Neutrophils # Seg Neutrophils # Man Lymphocytes # (Manual) Monocytes # (Manual) Eosinophils # (Manual) Basophils # (Manual) PT INR APTT D-Dimer Heparin Anti-Xa Level ABG pH ABG pO2 73.2 L ABG HCO3 33.8 H ABG O2 Saturation ABG Base Excess 8.7 H ABG Hemoglobin 8.5 L Oxyhemoglobin 94.1 L Sodium Potassium Chloride Carbon Dioxide BUN Creatinine Glucose POC Glucose 166 H 136 H Hemoglobin A1c Lactic Acid Calcium Phosphorus Magnesium Ferritin AST ALT Alkaline Phosphatase Lactate Dehydrogenase Troponin T C-Reactive Protein Total Protein Albumin LDL Cholesterol Direct Urine Creatinine Urine Total Protein Salicylates Acetaminophen Crossmatch 11/09/21 11/09/21 11/09/21 15:48 16:10 20:31 WBC RBC Hgb Hct MCH RDW Plt Count Lymph % (Auto) [place] % (Auto) Lymph # (Auto) [place] # (Auto) Seg Neutrophils % Seg Neuts % (Manual) Lymphocytes % (Manual) Monocytes % (Manual) Basophils % (Manual) Nucleated RBC % Seg Neutrophils # Seg Neutrophils # Man Lymphocytes # (Manual) Monocytes # (Manual) Eosinophils # (Manual) Basophils # (Manual) PT INR APTT D-Dimer Heparin Anti-Xa Level ABG pH ABG pO2 ABG HCO3 ABG O2 Saturation ABG Base Excess ABG Hemoglobin Oxyhemoglobin Sodium Potassium 2.8 L* Chloride Carbon Dioxide 31 H BUN 53 H Creatinine 1.3 H Glucose 208 H POC Glucose 203 H 166 H Hemoglobin A1c Lactic Acid Calcium 7.9 L Phosphorus Magnesium Ferritin AST ALT Alkaline Phosphatase Lactate Dehydrogenase Troponin T C-Reactive Protein Total Protein Albumin LDL Cholesterol Direct Urine Creatinine Urine Total Protein Salicylates Acetaminophen Crossmatch 11/09/21 11/09/21 11/09/21 21:30 23:16 Unknown WBC RBC Hgb Hct MCH RDW Plt Count Lymph % (Auto) [place] % (Auto) Lymph # (Auto) [place] # (Auto) Seg Neutrophils % Seg Neuts % (Manual) Lymphocytes % (Manual) Monocytes % (Manual) Basophils % (Manual) Nucleated RBC % Seg Neutrophils # Seg Neutrophils # Man Lymphocytes # (Manual) Monocytes # (Manual) Eosinophils # (Manual) Basophils # (Manual) PT INR APTT D-Dimer Heparin Anti-Xa Level 0.24 L ABG pH ABG pO2 ABG HCO3 ABG O2 Saturation ABG Base Excess ABG Hemoglobin Oxyhemoglobin Sodium Potassium Chloride Carbon Dioxide BUN 52 H Creatinine 1.4 H Glucose 185 H POC Glucose 172 H Hemoglobin A1c Lactic Acid Calcium 7.8 L Phosphorus Magnesium Ferritin AST ALT Alkaline Phosphatase Lactate Dehydrogenase Troponin T C-Reactive Protein Total Protein Albumin LDL Cholesterol Direct Urine Creatinine Urine Total Protein Salicylates Acetaminophen Crossmatch 11/10/21 11/10/21 11/10/21 02:00 04:17 04:17 WBC 24.5 H RBC 2.75 L Hgb 7.5 L Hct 22.9 L MCH 27 L RDW Plt Count Lymph % (Auto) [place] % (Auto) Lymph # (Auto) [place] # (Auto) Seg Neutrophils % Seg Neuts % (Manual) Lymphocytes % (Manual) Monocytes % (Manual) Basophils % (Manual) Nucleated RBC % Seg Neutrophils # Seg Neutrophils # Man Lymphocytes # (Manual) Monocytes # (Manual) Eosinophils # (Manual) Basophils # (Manual) PT INR APTT D-Dimer Heparin Anti-Xa Level 0.26 L ABG pH ABG pO2 ABG HCO3 ABG O2 Saturation ABG Base Excess ABG Hemoglobin Oxyhemoglobin Sodium Potassium 2.9 L* Chloride Carbon Dioxide 35 H BUN 48 H Creatinine Glucose 212 H POC Glucose Hemoglobin A1c Lactic Acid Calcium 8.1 L Phosphorus Magnesium Ferritin AST ALT Alkaline Phosphatase Lactate Dehydrogenase Troponin T C-Reactive Protein Total Protein Albumin LDL Cholesterol Direct Urine Creatinine Urine Total Protein Salicylates Acetaminophen Crossmatch 11/10/21 11/10/21 11/10/21 05:01 08:39 11:03 WBC RBC Hgb Hct MCH RDW Plt Count Lymph % (Auto) [place] % (Auto) Lymph # (Auto) [place] # (Auto) Seg Neutrophils % Seg Neuts % (Manual) Lymphocytes % (Manual) Monocytes % (Manual) Basophils % (Manual) Nucleated RBC % Seg Neutrophils # Seg Neutrophils # Man Lymphocytes # (Manual) Monocytes # (Manual) Eosinophils # (Manual) Basophils # (Manual) PT INR APTT D-Dimer Heparin Anti-Xa Level 0.12 L ABG pH ABG pO2 ABG HCO3 ABG O2 Saturation ABG Base Excess ABG Hemoglobin Oxyhemoglobin Sodium Potassium Chloride Carbon Dioxide BUN Creatinine Glucose POC Glucose 203 H 152 H Hemoglobin A1c Lactic Acid Calcium Phosphorus Magnesium Ferritin AST ALT Alkaline Phosphatase Lactate Dehydrogenase Troponin T C-Reactive Protein Total Protein Albumin LDL Cholesterol Direct Urine Creatinine Urine Total Protein Salicylates Acetaminophen Crossmatch 11/10/21 11/10/21 11/10/21 12:45 15:43 21:05 WBC RBC Hgb Hct MCH RDW Plt Count Lymph % (Auto) [place] % (Auto) Lymph # (Auto) [place] # (Auto) Seg Neutrophils % Seg Neuts % (Manual) Lymphocytes % (Manual) Monocytes % (Manual) Basophils % (Manual) Nucleated RBC % Seg Neutrophils # Seg Neutrophils # Man Lymphocytes # (Manual) Monocytes # (Manual) Eosinophils # (Manual) Basophils # (Manual) PT INR APTT D-Dimer Heparin Anti-Xa Level ABG pH ABG pO2 ABG HCO3 ABG O2 Saturation ABG Base Excess ABG Hemoglobin Oxyhemoglobin Sodium 146 H Potassium 3.3 L Chloride Carbon Dioxide 31 H BUN 43 H Creatinine Glucose 155 H POC Glucose 139 H 139 H Hemoglobin A1c Lactic Acid Calcium 8.3 L Phosphorus Magnesium Ferritin AST ALT Alkaline Phosphatase Lactate Dehydrogenase Troponin T C-Reactive Protein Total Protein Albumin LDL Cholesterol Direct Urine Creatinine Urine Total Protein Salicylates Acetaminophen Crossmatch 11/10/21 11/11/21 11/11/21 23:25 03:49 03:49 WBC 22.1 H RBC 2.69 L Hgb 7.2 L Hct 22.7 L MCH 27 L RDW Plt Count Lymph % (Auto) [place] % (Auto) Lymph # (Auto) [place] # (Auto) Seg Neutrophils % Seg Neuts % (Manual) Lymphocytes % (Manual) Monocytes % (Manual) Basophils % (Manual) Nucleated RBC % Seg Neutrophils # Seg Neutrophils # Man Lymphocytes # (Manual) Monocytes # (Manual) Eosinophils # (Manual) Basophils # (Manual) PT INR APTT D-Dimer Heparin Anti-Xa Level ABG pH ABG pO2 ABG HCO3 ABG O2 Saturation ABG Base Excess ABG Hemoglobin Oxyhemoglobin Sodium Potassium Chloride Carbon Dioxide 32 H BUN 44 H Creatinine 1.3 H Glucose 173 H POC Glucose 146 H Hemoglobin A1c Lactic Acid Calcium Phosphorus Magnesium Ferritin AST ALT Alkaline Phosphatase Lactate Dehydrogenase Troponin T C-Reactive Protein Total Protein Albumin LDL Cholesterol Direct Urine Creatinine Urine Total Protein Salicylates Acetaminophen Crossmatch 11/11/21 11/11/21 11/11/21 05:03 10:50 11:32 WBC RBC Hgb Hct MCH RDW Plt Count Lymph % (Auto) [place] % (Auto) Lymph # (Auto) [place] # (Auto) Seg Neutrophils % Seg Neuts % (Manual) Lymphocytes % (Manual) Monocytes % (Manual) Basophils % (Manual) Nucleated RBC % Seg Neutrophils # Seg Neutrophils # Man Lymphocytes # (Manual) Monocytes # (Manual) Eosinophils # (Manual) Basophils # (Manual) PT INR APTT D-Dimer Heparin Anti-Xa Level ABG pH ABG pO2 ABG HCO3 ABG O2 Saturation ABG Base Excess ABG Hemoglobin Oxyhemoglobin Sodium Potassium Chloride Carbon Dioxide BUN Creatinine Glucose POC Glucose 152 H 129 H 133 H Hemoglobin A1c Lactic Acid Calcium Phosphorus Magnesium Ferritin AST ALT Alkaline Phosphatase Lactate Dehydrogenase Troponin T C-Reactive Protein Total Protein Albumin LDL Cholesterol Direct Urine Creatinine Urine Total Protein Salicylates Acetaminophen Crossmatch 11/11/21 11/11/21 11/11/21 13:53 16:31 17:13 WBC RBC Hgb Hct MCH RDW Plt Count Lymph % (Auto) [place] % (Auto) Lymph # (Auto) [place] # (Auto) Seg Neutrophils % Seg Neuts % (Manual) Lymphocytes % (Manual) Monocytes % (Manual) Basophils % (Manual) Nucleated RBC % Seg Neutrophils # Seg Neutrophils # Man Lymphocytes # (Manual) Monocytes # (Manual) Eosinophils # (Manual) Basophils # (Manual) PT INR APTT D-Dimer Heparin Anti-Xa Level ABG pH 7.475 H ABG pO2 64.1 L ABG HCO3 32.4 H ABG O2 Saturation ABG Base Excess 8.0 H ABG Hemoglobin 7.6 L Oxyhemoglobin 94.0 L Sodium Potassium Chloride Carbon Dioxide BUN Creatinine Glucose POC Glucose 116 H 125 H Hemoglobin A1c Lactic Acid Calcium Phosphorus Magnesium Ferritin AST ALT Alkaline Phosphatase Lactate Dehydrogenase Troponin T C-Reactive Protein Total Protein Albumin LDL Cholesterol Direct Urine Creatinine Urine Total Protein Salicylates Acetaminophen Crossmatch 11/11/21 11/11/21 11/12/21 20:40 23:35 03:30 WBC 17.7 H RBC 2.37 L Hgb 6.3 L Hct 20.0 L MCH 27 L RDW 15.5 H Plt Count Lymph % (Auto) [place] % (Auto) Lymph # (Auto) [place] # (Auto) Seg Neutrophils % Seg Neuts % (Manual) Lymphocytes % (Manual) Monocytes % (Manual) Basophils % (Manual) Nucleated RBC % Seg Neutrophils # Seg Neutrophils # Man Lymphocytes # (Manual) Monocytes # (Manual) Eosinophils # (Manual) Basophils # (Manual) PT INR APTT D-Dimer Heparin Anti-Xa Level 0.26 L ABG pH ABG pO2 ABG HCO3 ABG O2 Saturation ABG Base Excess ABG Hemoglobin Oxyhemoglobin Sodium Potassium Chloride Carbon Dioxide BUN Creatinine Glucose POC Glucose 118 H Hemoglobin A1c Lactic Acid Calcium Phosphorus Magnesium Ferritin AST ALT Alkaline Phosphatase Lactate Dehydrogenase Troponin T C-Reactive Protein Total Protein Albumin LDL Cholesterol Direct Urine Creatinine Urine Total Protein Salicylates Acetaminophen Crossmatch 11/12/21 11/12/21 11/12/21 03:30 04:15 11:53 WBC RBC Hgb Hct MCH RDW Plt Count Lymph % (Auto) [place] % (Auto) Lymph # (Auto) [place] # (Auto) Seg Neutrophils % Seg Neuts % (Manual) Lymphocytes % (Manual) Monocytes % (Manual) Basophils % (Manual) Nucleated RBC % Seg Neutrophils # Seg Neutrophils # Man Lymphocytes # (Manual) Monocytes # (Manual) Eosinophils # (Manual) Basophils # (Manual) PT INR APTT D-Dimer Heparin Anti-Xa Level ABG pH ABG pO2 ABG HCO3 ABG O2 Saturation ABG Base Excess ABG Hemoglobin Oxyhemoglobin Sodium Potassium Chloride Carbon Dioxide 33 H BUN 38 H Creatinine 1.3 H Glucose 102 H POC Glucose 62 L Hemoglobin A1c Lactic Acid Calcium 8.2 L Phosphorus Magnesium Ferritin AST ALT Alkaline Phosphatase Lactate Dehydrogenase Troponin T C-Reactive Protein Total Protein Albumin LDL Cholesterol Direct Urine Creatinine Urine Total Protein Salicylates Acetaminophen Crossmatch See Detail 11/12/21 11/12/21 11/12/21 17:20 19:14 23:11 WBC RBC Hgb 6.2 L Hct 19.5 L* MCH RDW Plt Count Lymph % (Auto) [place] % (Auto) Lymph # (Auto) [place] # (Auto) Seg Neutrophils % Seg Neuts % (Manual) Lymphocytes % (Manual) Monocytes % (Manual) Basophils % (Manual) Nucleated RBC % Seg Neutrophils # Seg Neutrophils # Man Lymphocytes # (Manual) Monocytes # (Manual) Eosinophils # (Manual) Basophils # (Manual) PT INR APTT D-Dimer Heparin Anti-Xa Level ABG pH ABG pO2 ABG HCO3 ABG O2 Saturation ABG Base Excess ABG Hemoglobin Oxyhemoglobin Sodium Potassium Chloride Carbon Dioxide BUN Creatinine Glucose POC Glucose 115 H 131 H Hemoglobin A1c Lactic Acid Calcium Phosphorus Magnesium Ferritin AST ALT Alkaline Phosphatase Lactate Dehydrogenase Troponin T C-Reactive Protein Total Protein Albumin LDL Cholesterol Direct Urine Creatinine Urine Total Protein Salicylates Acetaminophen Crossmatch 11/13/21 11/13/21 11/13/21 00:13 04:17 04:17 WBC 23.8 H RBC 2.84 L Hgb 7.4 L 7.8 L Hct 23.3 L 24.9 L MCH 27 L RDW 15.4 H Plt Count Lymph % (Auto) [place] % (Auto) Lymph # (Auto) [place] # (Auto) Seg Neutrophils % Seg Neuts % (Manual) Lymphocytes % (Manual) Monocytes % (Manual) Basophils % (Manual) Nucleated RBC % Seg Neutrophils # Seg Neutrophils # Man Lymphocytes # (Manual) Monocytes # (Manual) Eosinophils # (Manual) Basophils # (Manual) PT INR APTT D-Dimer Heparin Anti-Xa Level ABG pH ABG pO2 ABG HCO3 ABG O2 Saturation ABG Base Excess ABG Hemoglobin Oxyhemoglobin Sodium 146 H Potassium Chloride Carbon Dioxide BUN 44 H Creatinine 1.6 H Glucose 144 H POC Glucose Hemoglobin A1c Lactic Acid Calcium 7.9 L Phosphorus 5.10 H D Magnesium Ferritin AST ALT Alkaline Phosphatase Lactate Dehydrogenase Troponin T C-Reactive Protein Total Protein Albumin LDL Cholesterol Direct Urine Creatinine Urine Total Protein Salicylates Acetaminophen Crossmatch 11/13/21 11/13/21 11/13/21 05:52 10:54 15:57 WBC RBC Hgb Hct MCH RDW Plt Count Lymph % (Auto) [place] % (Auto) Lymph # (Auto) [place] # (Auto) Seg Neutrophils % Seg Neuts % (Manual) Lymphocytes % (Manual) Monocytes % (Manual) Basophils % (Manual) Nucleated RBC % Seg Neutrophils # Seg Neutrophils # Man Lymphocytes # (Manual) Monocytes # (Manual) Eosinophils # (Manual) Basophils # (Manual) PT INR APTT D-Dimer Heparin Anti-Xa Level ABG pH ABG pO2 ABG HCO3 ABG O2 Saturation ABG Base Excess ABG Hemoglobin Oxyhemoglobin Sodium Potassium Chloride Carbon Dioxide BUN Creatinine Glucose POC Glucose 123 H 147 H 207 H Hemoglobin A1c Lactic Acid Calcium Phosphorus Magnesium Ferritin AST ALT Alkaline Phosphatase Lactate Dehydrogenase Troponin T C-Reactive Protein Total Protein Albumin LDL Cholesterol Direct Urine Creatinine Urine Total Protein Salicylates Acetaminophen Crossmatch 11/13/21 11/13/21 11/14/21 16:01 23:18 04:55 WBC 23.9 H RBC 2.86 L Hgb 6.5 L 8.3 L Hct 20.3 L 24.5 L MCH RDW Plt Count Lymph % (Auto) [place] % (Auto) Lymph # (Auto) [place] # (Auto) Seg Neutrophils % Seg Neuts % (Manual) Lymphocytes % (Manual) Monocytes % (Manual) Basophils % (Manual) Nucleated RBC % Seg Neutrophils # Seg Neutrophils # Man Lymphocytes # (Manual) Monocytes # (Manual) Eosinophils # (Manual) Basophils # (Manual) PT INR APTT D-Dimer Heparin Anti-Xa Level ABG pH ABG pO2 ABG HCO3 ABG O2 Saturation ABG Base Excess ABG Hemoglobin Oxyhemoglobin Sodium Potassium Chloride Carbon Dioxide BUN Creatinine Glucose POC Glucose 209 H Hemoglobin A1c Lactic Acid Calcium Phosphorus Magnesium Ferritin AST ALT Alkaline Phosphatase Lactate Dehydrogenase Troponin T C-Reactive Protein Total Protein Albumin LDL Cholesterol Direct Urine Creatinine Urine Total Protein Salicylates Acetaminophen Crossmatch 11/14/21 11/14/21 11/14/21 04:55 05:09 11:35 WBC RBC Hgb Hct MCH RDW Plt Count Lymph % (Auto) [place] % (Auto) Lymph # (Auto) [place] # (Auto) Seg Neutrophils % Seg Neuts % (Manual) Lymphocytes % (Manual) Monocytes % (Manual) Basophils % (Manual) Nucleated RBC % Seg Neutrophils # Seg Neutrophils # Man Lymphocytes # (Manual) Monocytes # (Manual) Eosinophils # (Manual) Basophils # (Manual) PT INR APTT D-Dimer Heparin Anti-Xa Level ABG pH ABG pO2 ABG HCO3 ABG O2 Saturation ABG Base Excess ABG Hemoglobin Oxyhemoglobin Sodium 148 H Potassium Chloride 109.0 H Carbon Dioxide BUN 42 H Creatinine 1.6 H Glucose 184 H POC Glucose 169 H 154 H Hemoglobin A1c Lactic Acid Calcium 8.0 L Phosphorus Magnesium Ferritin AST ALT Alkaline Phosphatase Lactate Dehydrogenase Troponin T C-Reactive Protein Total Protein Albumin LDL Cholesterol Direct Urine Creatinine Urine Total Protein Salicylates Acetaminophen Crossmatch 11/14/21 11/14/21 11/15/21 16:57 23:11 04:36 WBC RBC Hgb Hct MCH RDW Plt Count Lymph % (Auto) [place] % (Auto) Lymph # (Auto) [place] # (Auto) Seg Neutrophils % Seg Neuts % (Manual) Lymphocytes % (Manual) Monocytes % (Manual) Basophils % (Manual) Nucleated RBC % Seg Neutrophils # Seg Neutrophils # Man Lymphocytes # (Manual) Monocytes # (Manual) Eosinophils # (Manual) Basophils # (Manual) PT INR APTT D-Dimer Heparin Anti-Xa Level ABG pH ABG pO2 ABG HCO3 ABG O2 Saturation ABG Base Excess ABG Hemoglobin Oxyhemoglobin Sodium 151 H Potassium Chloride 111.2 H Carbon Dioxide BUN 36 H Creatinine 1.3 H Glucose 136 H POC Glucose 124 H 118 H Hemoglobin A1c Lactic Acid Calcium 8.1 L Phosphorus Magnesium Ferritin AST ALT Alkaline Phosphatase Lactate Dehydrogenase Troponin T C-Reactive Protein Total Protein Albumin LDL Cholesterol Direct Urine Creatinine Urine Total Protein Salicylates Acetaminophen Crossmatch 11/15/21 11/15/21 11/16/21 11:18 21:49 00:15 WBC RBC Hgb Hct MCH RDW Plt Count Lymph % (Auto) [place] % (Auto) Lymph # (Auto) [place] # (Auto) Seg Neutrophils % Seg Neuts % (Manual) Lymphocytes % (Manual) Monocytes % (Manual) Basophils % (Manual) Nucleated RBC % Seg Neutrophils # Seg Neutrophils # Man Lymphocytes # (Manual) Monocytes # (Manual) Eosinophils # (Manual) Basophils # (Manual) PT INR APTT D-Dimer Heparin Anti-Xa Level ABG pH ABG pO2 ABG HCO3 ABG O2 Saturation ABG Base Excess ABG Hemoglobin Oxyhemoglobin Sodium Potassium Chloride Carbon Dioxide BUN Creatinine Glucose POC Glucose 154 H 154 H 146 H Hemoglobin A1c Lactic Acid Calcium Phosphorus Magnesium Ferritin AST ALT Alkaline Phosphatase Lactate Dehydrogenase Troponin T C-Reactive Protein Total Protein Albumin LDL Cholesterol Direct Urine Creatinine Urine Total Protein Salicylates Acetaminophen Crossmatch 11/16/21 11/16/21 11/16/21 05:11 05:11 05:37 WBC 18.2 H RBC 2.92 L Hgb 8.3 L Hct 26.1 L MCH RDW 15.8 H Plt Count Lymph % (Auto) 6.3 L [place] % (Auto) 10.2 H Lymph # (Auto) [place] # (Auto) 1.9 H Seg Neutrophils % 81.7 H Seg Neuts % (Manual) Lymphocytes % (Manual) Monocytes % (Manual) Basophils % (Manual) Nucleated RBC % Seg Neutrophils # 14.9 H Seg Neutrophils # Man Lymphocytes # (Manual) Monocytes # (Manual) Eosinophils # (Manual) Basophils # (Manual) PT INR APTT D-Dimer Heparin Anti-Xa Level ABG pH ABG pO2 ABG HCO3 ABG O2 Saturation ABG Base Excess ABG Hemoglobin Oxyhemoglobin Sodium 146 H Potassium Chloride 108.0 H Carbon Dioxide BUN 25 H Creatinine Glucose 123 H POC Glucose 109 H Hemoglobin A1c Lactic Acid Calcium 7.8 L Phosphorus Magnesium Ferritin AST ALT Alkaline Phosphatase Lactate Dehydrogenase Troponin T C-Reactive Protein Total Protein Albumin LDL Cholesterol Direct Urine Creatinine Urine Total Protein Salicylates Acetaminophen Crossmatch 11/16/21 11/16/21 11/17/21 11:22 23:55 04:33 WBC RBC Hgb Hct MCH RDW Plt Count Lymph % (Auto) [place] % (Auto) Lymph # (Auto) [place] # (Auto) Seg Neutrophils % Seg Neuts % (Manual) Lymphocytes % (Manual) Monocytes % (Manual) Basophils % (Manual) Nucleated RBC % Seg Neutrophils # Seg Neutrophils # Man Lymphocytes # (Manual) Monocytes # (Manual) Eosinophils # (Manual) Basophils # (Manual) PT INR APTT D-Dimer Heparin Anti-Xa Level ABG pH ABG pO2 ABG HCO3 ABG O2 Saturation ABG Base Excess ABG Hemoglobin Oxyhemoglobin Sodium Potassium Chloride Carbon Dioxide BUN 20 H Creatinine Glucose POC Glucose 136 H 113 H Hemoglobin A1c Lactic Acid Calcium 7.5 L Phosphorus Magnesium Ferritin AST ALT Alkaline Phosphatase Lactate Dehydrogenase Troponin T C-Reactive Protein Total Protein Albumin LDL Cholesterol Direct Urine Creatinine Urine Total Protein Salicylates Acetaminophen Crossmatch 11/17/21 11/18/21 11/18/21 23:22 04:53 04:53 WBC 13.0 H RBC 2.99 L Hgb 8.5 L Hct 26.4 L MCH RDW Plt Count Lymph % (Auto) 9.5 L [place] % (Auto) 9.8 H Lymph # (Auto) [place] # (Auto) 1.3 H Seg Neutrophils % 78.3 H Seg Neuts % (Manual) Lymphocytes % (Manual) Monocytes % (Manual) Basophils % (Manual) Nucleated RBC % Seg Neutrophils # 10.2 H Seg Neutrophils # Man Lymphocytes # (Manual) Monocytes # (Manual) Eosinophils # (Manual) Basophils # (Manual) PT INR APTT D-Dimer Heparin Anti-Xa Level ABG pH ABG pO2 ABG HCO3 ABG O2 Saturation ABG Base Excess ABG Hemoglobin Oxyhemoglobin Sodium Potassium Chloride Carbon Dioxide BUN 18 H Creatinine Glucose 106 H POC Glucose 112 H Hemoglobin A1c Lactic Acid Calcium 8.1 L Phosphorus Magnesium Ferritin AST ALT Alkaline Phosphatase Lactate Dehydrogenase Troponin T C-Reactive Protein Total Protein Albumin LDL Cholesterol Direct Urine Creatinine Urine Total Protein Salicylates Acetaminophen Crossmatch 11/18/21 11/18/21 11/19/21 11:35 17:42 14:38 WBC RBC Hgb Hct MCH RDW Plt Count Lymph % (Auto) [place] % (Auto) Lymph # (Auto) [place] # (Auto) Seg Neutrophils % Seg Neuts % (Manual) Lymphocytes % (Manual) Monocytes % (Manual) Basophils % (Manual) Nucleated RBC % Seg Neutrophils # Seg Neutrophils # Man Lymphocytes # (Manual) Monocytes # (Manual) Eosinophils # (Manual) Basophils # (Manual) PT INR APTT D-Dimer Heparin Anti-Xa Level ABG pH ABG pO2 ABG HCO3 ABG O2 Saturation ABG Base Excess ABG Hemoglobin Oxyhemoglobin Sodium Potassium Chloride 97.5 L Carbon Dioxide 31 H BUN Creatinine Glucose 146 H POC Glucose 143 H 132 H Hemoglobin A1c Lactic Acid Calcium Phosphorus Magnesium 1.60 L Ferritin AST ALT Alkaline Phosphatase Lactate Dehydrogenase Troponin T C-Reactive Protein Total Protein Albumin LDL Cholesterol Direct Urine Creatinine Urine Total Protein Salicylates Acetaminophen Crossmatch 11/19/21 11/19/21 11/20/21 16:24 23:58 07:42 WBC RBC 3.01 L Hgb 8.6 L Hct 26.7 L MCH RDW 15.4 H Plt Count Lymph % (Auto) [place] % (Auto) Lymph # (Auto) [place] # (Auto) Seg Neutrophils % Seg Neuts % (Manual) Lymphocytes % (Manual) Monocytes % (Manual) Basophils % (Manual) Nucleated RBC % Seg Neutrophils # Seg Neutrophils # Man Lymphocytes # (Manual) Monocytes # (Manual) Eosinophils # (Manual) Basophils # (Manual) PT INR APTT D-Dimer Heparin Anti-Xa Level ABG pH ABG pO2 ABG HCO3 ABG O2 Saturation ABG Base Excess ABG Hemoglobin Oxyhemoglobin Sodium Potassium Chloride Carbon Dioxide BUN Creatinine Glucose POC Glucose 129 H 125 H Hemoglobin A1c Lactic Acid Calcium Phosphorus Magnesium Ferritin AST ALT Alkaline Phosphatase Lactate Dehydrogenase Troponin T C-Reactive Protein Total Protein Albumin LDL Cholesterol Direct Urine Creatinine Urine Total Protein Salicylates Acetaminophen Crossmatch 11/20/21 11/20/21 11/20/21 07:42 11:25 22:59 WBC RBC Hgb Hct MCH RDW Plt Count Lymph % (Auto) [place] % (Auto) Lymph # (Auto) [place] # (Auto) Seg Neutrophils % Seg Neuts % (Manual) Lymphocytes % (Manual) Monocytes % (Manual) Basophils % (Manual) Nucleated RBC % Seg Neutrophils # Seg Neutrophils # Man Lymphocytes # (Manual) Monocytes # (Manual) Eosinophils # (Manual) Basophils # (Manual) PT INR APTT D-Dimer Heparin Anti-Xa Level ABG pH ABG pO2 ABG HCO3 ABG O2 Saturation ABG Base Excess ABG Hemoglobin Oxyhemoglobin Sodium Potassium Chloride Carbon Dioxide 31 H BUN Creatinine Glucose POC Glucose 116 H 113 H Hemoglobin A1c Lactic Acid Calcium Phosphorus Magnesium Ferritin AST ALT Alkaline Phosphatase Lactate Dehydrogenase Troponin T C-Reactive Protein Total Protein Albumin LDL Cholesterol Direct Urine Creatinine Urine Total Protein Salicylates Acetaminophen Crossmatch 11/21/21 11/22/21 11/22/21 10:50 05:10 16:12 WBC RBC Hgb Hct MCH RDW Plt Count Lymph % (Auto) [place] % (Auto) Lymph # (Auto) [place] # (Auto) Seg Neutrophils % Seg Neuts % (Manual) Lymphocytes % (Manual) Monocytes % (Manual) Basophils % (Manual) Nucleated RBC % Seg Neutrophils # Seg Neutrophils # Man Lymphocytes # (Manual) Monocytes # (Manual) Eosinophils # (Manual) Basophils # (Manual) PT INR APTT D-Dimer Heparin Anti-Xa Level ABG pH ABG pO2 ABG HCO3 ABG O2 Saturation ABG Base Excess ABG Hemoglobin Oxyhemoglobin Sodium Potassium Chloride Carbon Dioxide 32 H BUN Creatinine Glucose POC Glucose 156 H 110 H Hemoglobin A1c Lactic Acid Calcium 8.1 L Phosphorus Magnesium Ferritin AST ALT Alkaline Phosphatase Lactate Dehydrogenase Troponin T C-Reactive Protein Total Protein Albumin LDL Cholesterol Direct Urine Creatinine Urine Total Protein Salicylates Acetaminophen Crossmatch 11/23/21 11/23/21 11/23/21 07:18 07:18 11:45 WBC RBC 3.23 L Hgb 9.1 L Hct 28.5 L MCH RDW 15.6 H Plt Count Lymph % (Auto) [place] % (Auto) Lymph # (Auto) [place] # (Auto) Seg Neutrophils % Seg Neuts % (Manual) Lymphocytes % (Manual) Monocytes % (Manual) Basophils % (Manual) Nucleated RBC % Seg Neutrophils # Seg Neutrophils # Man Lymphocytes # (Manual) Monocytes # (Manual) Eosinophils # (Manual) Basophils # (Manual) PT INR APTT D-Dimer Heparin Anti-Xa Level ABG pH ABG pO2 ABG HCO3 ABG O2 Saturation ABG Base Excess ABG Hemoglobin Oxyhemoglobin Sodium Potassium 3.3 L Chloride 96.8 L Carbon Dioxide 32 H BUN Creatinine Glucose POC Glucose 140 H Hemoglobin A1c Lactic Acid Calcium Phosphorus Magnesium Ferritin AST ALT Alkaline Phosphatase Lactate Dehydrogenase Troponin T C-Reactive Protein Total Protein Albumin LDL Cholesterol Direct Urine Creatinine Urine Total Protein Salicylates Acetaminophen Crossmatch 11/23/21 11/23/21 11/24/21 16:40 23:45 07:19 WBC RBC 3.12 L Hgb 9.3 L Hct 27.2 L MCH RDW 16.0 H Plt Count Lymph % (Auto) 10.3 L [place] % (Auto) 10.0 H Lymph # (Auto) 1.1 L [place] # (Auto) 1.1 H Seg Neutrophils % 75.2 H Seg Neuts % (Manual) Lymphocytes % (Manual) Monocytes % (Manual) Basophils % (Manual) Nucleated RBC % Seg Neutrophils # 7.9 H Seg Neutrophils # Man Lymphocytes # (Manual) Monocytes # (Manual) Eosinophils # (Manual) Basophils # (Manual) PT INR APTT D-Dimer Heparin Anti-Xa Level ABG pH ABG pO2 ABG HCO3 ABG O2 Saturation ABG Base Excess ABG Hemoglobin Oxyhemoglobin Sodium Potassium Chloride Carbon Dioxide BUN Creatinine Glucose POC Glucose 140 H 138 H Hemoglobin A1c Lactic Acid Calcium Phosphorus Magnesium Ferritin AST ALT Alkaline Phosphatase Lactate Dehydrogenase Troponin T C-Reactive Protein Total Protein Albumin LDL Cholesterol Direct Urine Creatinine Urine Total Protein Salicylates Acetaminophen Crossmatch 11/24/21 11/24/21 11/24/21 07:19 11:49 15:54 WBC RBC Hgb Hct MCH RDW Plt Count Lymph % (Auto) [place] % (Auto) Lymph # (Auto) [place] # (Auto) Seg Neutrophils % Seg Neuts % (Manual) Lymphocytes % (Manual) Monocytes % (Manual) Basophils % (Manual) Nucleated RBC % Seg Neutrophils # Seg Neutrophils # Man Lymphocytes # (Manual) Monocytes # (Manual) Eosinophils # (Manual) Basophils # (Manual) PT INR APTT D-Dimer Heparin Anti-Xa Level ABG pH ABG pO2 ABG HCO3 ABG O2 Saturation ABG Base Excess ABG Hemoglobin Oxyhemoglobin Sodium Potassium 3.2 L Chloride 96.7 L Carbon Dioxide BUN Creatinine Glucose 125 H POC Glucose 118 H 106 H Hemoglobin A1c Lactic Acid Calcium Phosphorus Magnesium Ferritin AST ALT Alkaline Phosphatase Lactate Dehydrogenase Troponin T C-Reactive Protein Total Protein Albumin LDL Cholesterol Direct Urine Creatinine Urine Total Protein Salicylates Acetaminophen Crossmatch 11/25/21 11/25/21 11/25/21 11:49 15:41 20:51 WBC RBC Hgb Hct MCH RDW Plt Count Lymph % (Auto) [place] % (Auto) Lymph # (Auto) [place] # (Auto) Seg Neutrophils % Seg Neuts % (Manual) Lymphocytes % (Manual) Monocytes % (Manual) Basophils % (Manual) Nucleated RBC % Seg Neutrophils # Seg Neutrophils # Man Lymphocytes # (Manual) Monocytes # (Manual) Eosinophils # (Manual) Basophils # (Manual) PT INR APTT D-Dimer Heparin Anti-Xa Level ABG pH ABG pO2 ABG HCO3 ABG O2 Saturation ABG Base Excess ABG Hemoglobin Oxyhemoglobin Sodium Potassium Chloride Carbon Dioxide BUN Creatinine Glucose POC Glucose 119 H 110 H 109 H Hemoglobin A1c Lactic Acid Calcium Phosphorus Magnesium Ferritin AST ALT Alkaline Phosphatase Lactate Dehydrogenase Troponin T C-Reactive Protein Total Protein Albumin LDL Cholesterol Direct Urine Creatinine Urine Total Protein Salicylates Acetaminophen Crossmatch 11/26/21 11/26/21 11/26/21 07:33 11:20 17:03 WBC RBC Hgb Hct MCH RDW Plt Count Lymph % (Auto) [place] % (Auto) Lymph # (Auto) [place] # (Auto) Seg Neutrophils % Seg Neuts % (Manual) Lymphocytes % (Manual) Monocytes % (Manual) Basophils % (Manual) Nucleated RBC % Seg Neutrophils # Seg Neutrophils # Man Lymphocytes # (Manual) Monocytes # (Manual) Eosinophils # (Manual) Basophils # (Manual) PT INR APTT D-Dimer Heparin Anti-Xa Level ABG pH ABG pO2 ABG HCO3 ABG O2 Saturation ABG Base Excess ABG Hemoglobin Oxyhemoglobin Sodium Potassium Chloride Carbon Dioxide BUN Creatinine Glucose POC Glucose 158 H 162 H 144 H Hemoglobin A1c Lactic Acid Calcium Phosphorus Magnesium Ferritin AST ALT Alkaline Phosphatase Lactate Dehydrogenase Troponin T C-Reactive Protein Total Protein Albumin LDL Cholesterol Direct Urine Creatinine Urine Total Protein Salicylates Acetaminophen Crossmatch 11/26/21 11/27/21 11/27/21 21:51 07:44 12:20 WBC RBC Hgb Hct MCH RDW Plt Count Lymph % (Auto) [place] % (Auto) Lymph # (Auto) [place] # (Auto) Seg Neutrophils % Seg Neuts % (Manual) Lymphocytes % (Manual) Monocytes % (Manual) Basophils % (Manual) Nucleated RBC % Seg Neutrophils # Seg Neutrophils # Man Lymphocytes # (Manual) Monocytes # (Manual) Eosinophils # (Manual) Basophils # (Manual) PT INR APTT D-Dimer Heparin Anti-Xa Level ABG pH ABG pO2 ABG HCO3 ABG O2 Saturation ABG Base Excess ABG Hemoglobin Oxyhemoglobin Sodium Potassium Chloride Carbon Dioxide BUN Creatinine Glucose POC Glucose 132 H 129 H 128 H Hemoglobin A1c Lactic Acid Calcium Phosphorus Magnesium Ferritin AST ALT Alkaline Phosphatase Lactate Dehydrogenase Troponin T C-Reactive Protein Total Protein Albumin LDL Cholesterol Direct Urine Creatinine Urine Total Protein Salicylates Acetaminophen Crossmatch 11/27/21 11/27/21 11/28/21 16:44 21:35 07:54 WBC RBC Hgb Hct MCH RDW Plt Count Lymph % (Auto) [place] % (Auto) Lymph # (Auto) [place] # (Auto) Seg Neutrophils % Seg Neuts % (Manual) Lymphocytes % (Manual) Monocytes % (Manual) Basophils % (Manual) Nucleated RBC % Seg Neutrophils # Seg Neutrophils # Man Lymphocytes # (Manual) Monocytes # (Manual) Eosinophils # (Manual) Basophils # (Manual) PT INR APTT D-Dimer Heparin Anti-Xa Level ABG pH ABG pO2 ABG HCO3 ABG O2 Saturation ABG Base Excess ABG Hemoglobin Oxyhemoglobin Sodium Potassium Chloride Carbon Dioxide BUN Creatinine Glucose POC Glucose 126 H 131 H 124 H Hemoglobin A1c Lactic Acid Calcium Phosphorus Magnesium Ferritin AST ALT Alkaline Phosphatase Lactate Dehydrogenase Troponin T C-Reactive Protein Total Protein Albumin LDL Cholesterol Direct Urine Creatinine Urine Total Protein Salicylates Acetaminophen Crossmatch 11/28/21 11/28/21 11/28/21 11:27 11:56 16:34 WBC 12.3 H RBC 3.18 L Hgb 9.2 L Hct 27.8 L MCH RDW 16.1 H Plt Count Lymph % (Auto) 10.9 L [place] % (Auto) 13.7 H Lymph # (Auto) [place] # (Auto) 1.7 H Seg Neutrophils % 72.2 H Seg Neuts % (Manual) Lymphocytes % (Manual) Monocytes % (Manual) Basophils % (Manual) Nucleated RBC % Seg Neutrophils # 8.9 H Seg Neutrophils # Man Lymphocytes # (Manual) Monocytes # (Manual) Eosinophils # (Manual) Basophils # (Manual) PT INR APTT D-Dimer Heparin Anti-Xa Level ABG pH ABG pO2 ABG HCO3 ABG O2 Saturation ABG Base Excess ABG Hemoglobin Oxyhemoglobin Sodium Potassium Chloride Carbon Dioxide BUN Creatinine Glucose POC Glucose 131 H 123 H Hemoglobin A1c Lactic Acid Calcium Phosphorus Magnesium Ferritin AST ALT Alkaline Phosphatase Lactate Dehydrogenase Troponin T C-Reactive Protein Total Protein Albumin LDL Cholesterol Direct Urine Creatinine Urine Total Protein Salicylates Acetaminophen Crossmatch 11/28/21 11/28/21 11/29/21 19:35 21:32 07:33 WBC RBC Hgb Hct MCH RDW Plt Count Lymph % (Auto) [place] % (Auto) Lymph # (Auto) [place] # (Auto) Seg Neutrophils % Seg Neuts % (Manual) Lymphocytes % (Manual) Monocytes % (Manual) Basophils % (Manual) Nucleated RBC % Seg Neutrophils # Seg Neutrophils # Man Lymphocytes # (Manual) Monocytes # (Manual) Eosinophils # (Manual) Basophils # (Manual) PT INR APTT D-Dimer Heparin Anti-Xa Level 0.12 L ABG pH ABG pO2 ABG HCO3 ABG O2 Saturation ABG Base Excess ABG Hemoglobin Oxyhemoglobin Sodium Potassium Chloride Carbon Dioxide BUN Creatinine Glucose POC Glucose 110 H 108 H Hemoglobin A1c Lactic Acid Calcium Phosphorus Magnesium Ferritin AST ALT Alkaline Phosphatase Lactate Dehydrogenase Troponin T C-Reactive Protein Total Protein Albumin LDL Cholesterol Direct Urine Creatinine Urine Total Protein Salicylates Acetaminophen Crossmatch 11/29/21 11/29/21 11/29/21 11:29 13:51 15:25 WBC 13.0 H RBC 3.41 L Hgb 9.5 L Hct 29.9 L MCH RDW 16.2 H Plt Count Lymph % (Auto) 11.1 L [place] % (Auto) 15.5 H Lymph # (Auto) [place] # (Auto) 2.0 H Seg Neutrophils % 71.8 H Seg Neuts % (Manual) Lymphocytes % (Manual) Monocytes % (Manual) Basophils % (Manual) Nucleated RBC % Seg Neutrophils # 9.3 H Seg Neutrophils # Man Lymphocytes # (Manual) Monocytes # (Manual) Eosinophils # (Manual) Basophils # (Manual) PT INR APTT D-Dimer Heparin Anti-Xa Level ABG pH ABG pO2 ABG HCO3 ABG O2 Saturation ABG Base Excess ABG Hemoglobin Oxyhemoglobin Sodium Potassium Chloride Carbon Dioxide BUN Creatinine Glucose POC Glucose 136 H 123 H Hemoglobin A1c Lactic Acid Calcium Phosphorus Magnesium Ferritin AST ALT Alkaline Phosphatase Lactate Dehydrogenase Troponin T C-Reactive Protein Total Protein Albumin LDL Cholesterol Direct Urine Creatinine Urine Total Protein Salicylates Acetaminophen Crossmatch 11/29/21 11/29/21 11/29/21 18:50 18:50 20:16 WBC RBC Hgb Hct MCH RDW Plt Count Lymph % (Auto) [place] % (Auto) Lymph # (Auto) [place] # (Auto) Seg Neutrophils % Seg Neuts % (Manual) Lymphocytes % (Manual) Monocytes % (Manual) Basophils % (Manual) Nucleated RBC % Seg Neutrophils # Seg Neutrophils # Man Lymphocytes # (Manual) Monocytes # (Manual) Eosinophils # (Manual) Basophils # (Manual) PT INR APTT D-Dimer Heparin Anti-Xa Level 0.21 L ABG pH ABG pO2 ABG HCO3 ABG O2 Saturation ABG Base Excess ABG Hemoglobin Oxyhemoglobin Sodium 126 L Potassium Chloride 86.3 L Carbon Dioxide BUN 38 H Creatinine 3.6 H Glucose 153 H POC Glucose 166 H Hemoglobin A1c Lactic Acid Calcium Phosphorus Magnesium Ferritin AST ALT Alkaline Phosphatase Lactate Dehydrogenase Troponin T C-Reactive Protein Total Protein Albumin LDL Cholesterol Direct Urine Creatinine Urine Total Protein Salicylates Acetaminophen Crossmatch 11/30/21 11/30/21 11/30/21 05:14 07:35 11:15 WBC RBC Hgb 8.7 L Hct 26.8 L MCH RDW Plt Count Lymph % (Auto) [place] % (Auto) Lymph # (Auto) [place] # (Auto) Seg Neutrophils % Seg Neuts % (Manual) Lymphocytes % (Manual) Monocytes % (Manual) Basophils % (Manual) Nucleated RBC % Seg Neutrophils # Seg Neutrophils # Man Lymphocytes # (Manual) Monocytes # (Manual) Eosinophils # (Manual) Basophils # (Manual) PT INR APTT D-Dimer Heparin Anti-Xa Level ABG pH ABG pO2 ABG HCO3 ABG O2 Saturation ABG Base Excess ABG Hemoglobin Oxyhemoglobin Sodium Potassium Chloride Carbon Dioxide BUN Creatinine Glucose POC Glucose 114 H 119 H Hemoglobin A1c Lactic Acid Calcium Phosphorus Magnesium Ferritin AST ALT Alkaline Phosphatase Lactate Dehydrogenase Troponin T C-Reactive Protein Total Protein Albumin LDL Cholesterol Direct Urine Creatinine Urine Total Protein Salicylates Acetaminophen Crossmatch 11/30/21 11/30/21 11/30/21 15:26 17:10 18:51 WBC RBC Hgb Hct MCH RDW Plt Count Lymph % (Auto) [place] % (Auto) Lymph # (Auto) [place] # (Auto) Seg Neutrophils % Seg Neuts % (Manual) Lymphocytes % (Manual) Monocytes % (Manual) Basophils % (Manual) Nucleated RBC % Seg Neutrophils # Seg Neutrophils # Man Lymphocytes # (Manual) Monocytes # (Manual) Eosinophils # (Manual) Basophils # (Manual) PT INR APTT D-Dimer Heparin Anti-Xa Level 0.10 L ABG pH ABG pO2 ABG HCO3 ABG O2 Saturation ABG Base Excess ABG Hemoglobin Oxyhemoglobin Sodium 126 L Potassium Chloride 86.5 L Carbon Dioxide BUN 42 H Creatinine 4.0 H Glucose 155 H POC Glucose 157 H Hemoglobin A1c Lactic Acid Calcium 8.0 L Phosphorus Magnesium Ferritin AST ALT Alkaline Phosphatase Lactate Dehydrogenase Troponin T C-Reactive Protein Total Protein Albumin LDL Cholesterol Direct Urine Creatinine Urine Total Protein Salicylates Acetaminophen Crossmatch 11/30/21 12/01/21 12/01/21 20:04 00:39 09:38 WBC 25.2 H RBC 3.06 L Hgb 8.5 L Hct 26.8 L MCH RDW 16.1 H Plt Count Lymph % (Auto) [place] % (Auto) Lymph # (Auto) [place] # (Auto) Seg Neutrophils % Seg Neuts % (Manual) 80.0 H Lymphocytes % (Manual) 9.0 L Monocytes % (Manual) Basophils % (Manual) Nucleated RBC % Seg Neutrophils # Seg Neutrophils # Man 20.2 H Lymphocytes # (Manual) Monocytes # (Manual) 1.3 H Eosinophils # (Manual) Basophils # (Manual) PT INR APTT D-Dimer Heparin Anti-Xa Level 0.18 L ABG pH ABG pO2 ABG HCO3 ABG O2 Saturation ABG Base Excess ABG Hemoglobin Oxyhemoglobin Sodium Potassium Chloride Carbon Dioxide BUN Creatinine Glucose POC Glucose 115 H Hemoglobin A1c Lactic Acid Calcium Phosphorus Magnesium Ferritin AST ALT Alkaline Phosphatase Lactate Dehydrogenase Troponin T C-Reactive Protein Total Protein Albumin LDL Cholesterol Direct Urine Creatinine Urine Total Protein Salicylates Acetaminophen Crossmatch 12/01/21 12/01/21 12/02/21 09:38 11:35 03:22 WBC 23.3 H RBC 2.61 L Hgb 7.5 L Hct 22.8 L MCH RDW 16.1 H Plt Count Lymph % (Auto) [place] % (Auto) Lymph # (Auto) [place] # (Auto) Seg Neutrophils % Seg Neuts % (Manual) 77.0 H Lymphocytes % (Manual) 7.0 L Monocytes % (Manual) 14.0 H Basophils % (Manual) Nucleated RBC % Seg Neutrophils # Seg Neutrophils # Man 17.9 H Lymphocytes # (Manual) Monocytes # (Manual) 3.3 H Eosinophils # (Manual) Basophils # (Manual) 0.2 H PT INR APTT D-Dimer Heparin Anti-Xa Level ABG pH ABG pO2 ABG HCO3 ABG O2 Saturation ABG Base Excess ABG Hemoglobin Oxyhemoglobin Sodium 127 L Potassium 5.1 H Chloride 87.9 L Carbon Dioxide BUN 49 H Creatinine 4.9 H Glucose 134 H POC Glucose 109 H Hemoglobin A1c Lactic Acid Calcium 7.9 L Phosphorus Magnesium Ferritin AST ALT Alkaline Phosphatase Lactate Dehydrogenase Troponin T C-Reactive Protein Total Protein Albumin LDL Cholesterol Direct Urine Creatinine Urine Total Protein Salicylates Acetaminophen Crossmatch 12/02/21 12/02/21 12/02/21 03:22 03:22 15:40 WBC RBC Hgb Hct MCH RDW Plt Count Lymph % (Auto) [place] % (Auto) Lymph # (Auto) [place] # (Auto) Seg Neutrophils % Seg Neuts % (Manual) Lymphocytes % (Manual) Monocytes % (Manual) Basophils % (Manual) Nucleated RBC % Seg Neutrophils # Seg Neutrophils # Man Lymphocytes # (Manual) Monocytes # (Manual) Eosinophils # (Manual) Basophils # (Manual) PT INR APTT D-Dimer Heparin Anti-Xa Level 0.15 L < 0.10 L ABG pH ABG pO2 ABG HCO3 ABG O2 Saturation ABG Base Excess ABG Hemoglobin Oxyhemoglobin Sodium 129 L Potassium Chloride 91.7 L Carbon Dioxide BUN 42 H Creatinine 4.4 H Glucose POC Glucose Hemoglobin A1c Lactic Acid Calcium 8.0 L Phosphorus 5.20 H Magnesium Ferritin AST ALT Alkaline Phosphatase Lactate Dehydrogenase Troponin T C-Reactive Protein Total Protein Albumin LDL Cholesterol Direct Urine Creatinine Urine Total Protein Salicylates Acetaminophen Crossmatch 12/02/21 12/02/21 12/03/21 17:45 21:03 05:24 WBC 22.3 H RBC 2.69 L Hgb 7.4 L Hct 23.5 L MCH RDW 16.5 H Plt Count Lymph % (Auto) [place] % (Auto) Lymph # (Auto) [place] # (Auto) Seg Neutrophils % Seg Neuts % (Manual) 85.5 H Lymphocytes % (Manual) 6.0 L Monocytes % (Manual) Basophils % (Manual) Nucleated RBC % Seg Neutrophils # Seg Neutrophils # Man 19.1 H Lymphocytes # (Manual) Monocytes # (Manual) 1.0 H Eosinophils # (Manual) 0.7 H Basophils # (Manual) PT INR APTT D-Dimer Heparin Anti-Xa Level ABG pH ABG pO2 ABG HCO3 ABG O2 Saturation ABG Base Excess ABG Hemoglobin Oxyhemoglobin Sodium Potassium Chloride Carbon Dioxide BUN Creatinine Glucose POC Glucose 122 H 121 H Hemoglobin A1c Lactic Acid Calcium Phosphorus Magnesium Ferritin AST ALT Alkaline Phosphatase Lactate Dehydrogenase Troponin T C-Reactive Protein Total Protein Albumin LDL Cholesterol Direct Urine Creatinine Urine Total Protein Salicylates Acetaminophen Crossmatch 12/03/21 12/03/21 12/03/21 08:00 11:19 15:11 WBC RBC Hgb Hct MCH RDW Plt Count Lymph % (Auto) [place] % (Auto) Lymph # (Auto) [place] # (Auto) Seg Neutrophils % Seg Neuts % (Manual) Lymphocytes % (Manual) Monocytes % (Manual) Basophils % (Manual) Nucleated RBC % Seg Neutrophils # Seg Neutrophils # Man Lymphocytes # (Manual) Monocytes # (Manual) Eosinophils # (Manual) Basophils # (Manual) PT INR APTT D-Dimer Heparin Anti-Xa Level ABG pH ABG pO2 ABG HCO3 ABG O2 Saturation ABG Base Excess ABG Hemoglobin Oxyhemoglobin Sodium 134 L Potassium Chloride 95.9 L Carbon Dioxide BUN 30 H Creatinine 3.5 H Glucose 110 H POC Glucose 108 H 117 H Hemoglobin A1c Lactic Acid Calcium Phosphorus Magnesium Ferritin AST ALT Alkaline Phosphatase Lactate Dehydrogenase Troponin T C-Reactive Protein Total Protein Albumin LDL Cholesterol Direct Urine Creatinine Urine Total Protein Salicylates Acetaminophen Crossmatch 12/03/21 12/04/21 12/04/21 20:32 06:15 06:15 WBC 18.5 H RBC 2.88 L Hgb 8.0 L Hct 25.6 L MCH RDW 16.4 H Plt Count Lymph % (Auto) [place] % (Auto) Lymph # (Auto) [place] # (Auto) Seg Neutrophils % Seg Neuts % (Manual) 74.0 H Lymphocytes % (Manual) 11.0 L Monocytes % (Manual) 9.0 H Basophils % (Manual) Nucleated RBC % Seg Neutrophils # Seg Neutrophils # Man 13.7 H Lymphocytes # (Manual) Monocytes # (Manual) 1.7 H Eosinophils # (Manual) Basophils # (Manual) PT INR APTT D-Dimer Heparin Anti-Xa Level ABG pH ABG pO2 ABG HCO3 ABG O2 Saturation ABG Base Excess ABG Hemoglobin Oxyhemoglobin Sodium 135 L Potassium Chloride 96.9 L Carbon Dioxide BUN 19 H Creatinine 2.8 H Glucose 102 H POC Glucose 122 H Hemoglobin A1c Lactic Acid Calcium Phosphorus Magnesium Ferritin AST ALT Alkaline Phosphatase Lactate Dehydrogenase Troponin T C-Reactive Protein Total Protein Albumin LDL Cholesterol Direct Urine Creatinine Urine Total Protein Salicylates Acetaminophen Crossmatch 12/04/21 12/04/21 12/04/21 08:14 11:17 15:58 WBC RBC Hgb Hct MCH RDW Plt Count Lymph % (Auto) [place] % (Auto) Lymph # (Auto) [place] # (Auto) Seg Neutrophils % Seg Neuts % (Manual) Lymphocytes % (Manual) Monocytes % (Manual) Basophils % (Manual) Nucleated RBC % Seg Neutrophils # Seg Neutrophils # Man Lymphocytes # (Manual) Monocytes # (Manual) Eosinophils # (Manual) Basophils # (Manual) PT INR APTT D-Dimer Heparin Anti-Xa Level ABG pH ABG pO2 ABG HCO3 ABG O2 Saturation ABG Base Excess ABG Hemoglobin Oxyhemoglobin Sodium Potassium Chloride Carbon Dioxide BUN Creatinine Glucose POC Glucose 106 H 125 H 113 H Hemoglobin A1c Lactic Acid Calcium Phosphorus Magnesium Ferritin AST ALT Alkaline Phosphatase Lactate Dehydrogenase Troponin T C-Reactive Protein Total Protein Albumin LDL Cholesterol Direct Urine Creatinine Urine Total Protein Salicylates Acetaminophen Crossmatch 12/04/21 12/05/21 12/05/21 20:25 05:05 08:15 WBC 19.4 H RBC 2.89 L Hgb 8.1 L Hct 25.6 L MCH RDW 16.3 H Plt Count Lymph % (Auto) [place] % (Auto) Lymph # (Auto) [place] # (Auto) Seg Neutrophils % Seg Neuts % (Manual) Lymphocytes % (Manual) 13.0 L Monocytes % (Manual) 13.0 H Basophils % (Manual) Nucleated RBC % Seg Neutrophils # Seg Neutrophils # Man 12.4 H Lymphocytes # (Manual) Monocytes # (Manual) 2.5 H Eosinophils # (Manual) 0.8 H Basophils # (Manual) PT INR APTT D-Dimer Heparin Anti-Xa Level ABG pH ABG pO2 ABG HCO3 ABG O2 Saturation ABG Base Excess ABG Hemoglobin Oxyhemoglobin Sodium Potassium Chloride Carbon Dioxide BUN Creatinine Glucose POC Glucose 130 H 107 H Hemoglobin A1c Lactic Acid Calcium Phosphorus Magnesium Ferritin AST ALT Alkaline Phosphatase Lactate Dehydrogenase Troponin T C-Reactive Protein Total Protein Albumin LDL Cholesterol Direct Urine Creatinine Urine Total Protein Salicylates Acetaminophen Crossmatch 12/05/21 12/05/21 12/05/21 11:18 16:42 21:14 WBC RBC Hgb Hct MCH RDW Plt Count Lymph % (Auto) [place] % (Auto) Lymph # (Auto) [place] # (Auto) Seg Neutrophils % Seg Neuts % (Manual) Lymphocytes % (Manual) Monocytes % (Manual) Basophils % (Manual) Nucleated RBC % Seg Neutrophils # Seg Neutrophils # Man Lymphocytes # (Manual) Monocytes # (Manual) Eosinophils # (Manual) Basophils # (Manual) PT INR APTT D-Dimer Heparin Anti-Xa Level ABG pH ABG pO2 ABG HCO3 ABG O2 Saturation ABG Base Excess ABG Hemoglobin Oxyhemoglobin Sodium Potassium Chloride Carbon Dioxide BUN Creatinine Glucose POC Glucose 114 H 122 H 119 H Hemoglobin A1c Lactic Acid Calcium Phosphorus Magnesium Ferritin AST ALT Alkaline Phosphatase Lactate Dehydrogenase Troponin T C-Reactive Protein Total Protein Albumin LDL Cholesterol Direct Urine Creatinine Urine Total Protein Salicylates Acetaminophen Crossmatch 12/05/21 12/06/21 12/06/21 23:51 04:36 04:36 WBC RBC Hgb 8.0 L Hct 25.7 L MCH RDW Plt Count Lymph % (Auto) [place] % (Auto) Lymph # (Auto) [place] # (Auto) Seg Neutrophils % Seg Neuts % (Manual) Lymphocytes % (Manual) Monocytes % (Manual) Basophils % (Manual) Nucleated RBC % Seg Neutrophils # Seg Neutrophils # Man Lymphocytes # (Manual) Monocytes # (Manual) Eosinophils # (Manual) Basophils # (Manual) PT INR APTT D-Dimer Heparin Anti-Xa Level 0.71 H ABG pH ABG pO2 ABG HCO3 ABG O2 Saturation ABG Base Excess ABG Hemoglobin Oxyhemoglobin Sodium 132 L Potassium Chloride 92.5 L Carbon Dioxide BUN 35 H Creatinine 4.0 H Glucose POC Glucose Hemoglobin A1c Lactic Acid Calcium Phosphorus Magnesium Ferritin AST ALT Alkaline Phosphatase Lactate Dehydrogenase Troponin T C-Reactive Protein Total Protein Albumin LDL Cholesterol Direct Urine Creatinine Urine Total Protein Salicylates Acetaminophen Crossmatch 12/06/21 12/06/21 12/06/21 07:32 11:12 15:49 WBC RBC Hgb Hct MCH RDW Plt Count Lymph % (Auto) [place] % (Auto) Lymph # (Auto) [place] # (Auto) Seg Neutrophils % Seg Neuts % (Manual) Lymphocytes % (Manual) Monocytes % (Manual) Basophils % (Manual) Nucleated RBC % Seg Neutrophils # Seg Neutrophils # Man Lymphocytes # (Manual) Monocytes # (Manual) Eosinophils # (Manual) Basophils # (Manual) PT INR APTT D-Dimer Heparin Anti-Xa Level ABG pH ABG pO2 ABG HCO3 ABG O2 Saturation ABG Base Excess ABG Hemoglobin Oxyhemoglobin Sodium Potassium Chloride Carbon Dioxide BUN Creatinine Glucose POC Glucose 106 H 112 H 111 H Hemoglobin A1c Lactic Acid Calcium Phosphorus Magnesium Ferritin AST ALT Alkaline Phosphatase Lactate Dehydrogenase Troponin T C-Reactive Protein Total Protein Albumin LDL Cholesterol Direct Urine Creatinine Urine Total Protein Salicylates Acetaminophen Crossmatch 12/06/21 12/06/21 12/07/21 17:13 21:31 06:11 WBC RBC Hgb Hct MCH RDW Plt Count Lymph % (Auto) [place] % (Auto) Lymph # (Auto) [place] # (Auto) Seg Neutrophils % Seg Neuts % (Manual) Lymphocytes % (Manual) Monocytes % (Manual) Basophils % (Manual) Nucleated RBC % Seg Neutrophils # Seg Neutrophils # Man Lymphocytes # (Manual) Monocytes # (Manual) Eosinophils # (Manual) Basophils # (Manual) PT INR APTT D-Dimer Heparin Anti-Xa Level ABG pH ABG pO2 ABG HCO3 ABG O2 Saturation ABG Base Excess ABG Hemoglobin Oxyhemoglobin Sodium 126 L Potassium Chloride 90.1 L Carbon Dioxide BUN 43 H Creatinine 4.2 H Glucose POC Glucose 113 H 112 H Hemoglobin A1c Lactic Acid Calcium Phosphorus Magnesium Ferritin AST ALT Alkaline Phosphatase Lactate Dehydrogenase Troponin T C-Reactive Protein Total Protein Albumin LDL Cholesterol Direct Urine Creatinine Urine Total Protein Salicylates Acetaminophen Crossmatch 12/07/21 12/07/21 12/08/21 12:04 21:36 04:53 WBC RBC Hgb Hct MCH RDW Plt Count Lymph % (Auto) [place] % (Auto) Lymph # (Auto) [place] # (Auto) Seg Neutrophils % Seg Neuts % (Manual) Lymphocytes % (Manual) Monocytes % (Manual) Basophils % (Manual) Nucleated RBC % Seg Neutrophils # Seg Neutrophils # Man Lymphocytes # (Manual) Monocytes # (Manual) Eosinophils # (Manual) Basophils # (Manual) PT INR APTT D-Dimer Heparin Anti-Xa Level ABG pH ABG pO2 ABG HCO3 ABG O2 Saturation ABG Base Excess ABG Hemoglobin Oxyhemoglobin Sodium 128 L Potassium Chloride 93.1 L Carbon Dioxide 21 L BUN 39 H Creatinine 3.9 H Glucose 103 H POC Glucose 119 H 112 H Hemoglobin A1c Lactic Acid Calcium Phosphorus Magnesium Ferritin AST ALT Alkaline Phosphatase Lactate Dehydrogenase Troponin T C-Reactive Protein Total Protein Albumin LDL Cholesterol Direct Urine Creatinine Urine Total Protein Salicylates Acetaminophen Crossmatch 12/08/21 12/08/21 12/08/21 04:53 08:56 11:20 WBC 24.2 H RBC 2.71 L Hgb 7.6 L Hct 24.1 L MCH RDW 16.7 H Plt Count 114 L Lymph % (Auto) [place] % (Auto) Lymph # (Auto) [place] # (Auto) Seg Neutrophils % Seg Neuts % (Manual) 76.0 H Lymphocytes % (Manual) Monocytes % (Manual) Basophils % (Manual) Nucleated RBC % 1.0 H Seg Neutrophils # Seg Neutrophils # Man 18.4 H Lymphocytes # (Manual) Monocytes # (Manual) 1.5 H Eosinophils # (Manual) 1.0 H Basophils # (Manual) PT INR APTT D-Dimer Heparin Anti-Xa Level 0.94 H ABG pH ABG pO2 ABG HCO3 ABG O2 Saturation ABG Base Excess ABG Hemoglobin Oxyhemoglobin Sodium Potassium Chloride Carbon Dioxide BUN Creatinine Glucose POC Glucose 119 H Hemoglobin A1c Lactic Acid Calcium Phosphorus Magnesium Ferritin AST ALT Alkaline Phosphatase Lactate Dehydrogenase Troponin T C-Reactive Protein Total Protein Albumin LDL Cholesterol Direct Urine Creatinine Urine Total Protein Salicylates Acetaminophen Crossmatch 12/08/21 12/08/21 12/09/21 16:55 21:18 07:05 WBC RBC Hgb Hct MCH RDW Plt Count Lymph % (Auto) [place] % (Auto) Lymph # (Auto) [place] # (Auto) Seg Neutrophils % Seg Neuts % (Manual) Lymphocytes % (Manual) Monocytes % (Manual) Basophils % (Manual) Nucleated RBC % Seg Neutrophils # Seg Neutrophils # Man Lymphocytes # (Manual) Monocytes # (Manual) Eosinophils # (Manual) Basophils # (Manual) PT INR APTT D-Dimer Heparin Anti-Xa Level ABG pH ABG pO2 ABG HCO3 ABG O2 Saturation ABG Base Excess ABG Hemoglobin Oxyhemoglobin Sodium 124 L Potassium Chloride 89.9 L Carbon Dioxide BUN 45 H Creatinine 3.5 H Glucose POC Glucose 112 H 122 H Hemoglobin A1c Lactic Acid Calcium Phosphorus Magnesium Ferritin AST ALT Alkaline Phosphatase Lactate Dehydrogenase Troponin T C-Reactive Protein Total Protein Albumin LDL Cholesterol Direct Urine Creatinine Urine Total Protein Salicylates Acetaminophen Crossmatch 12/09/21 12/09/21 12/10/21 11:02 20:11 05:22 WBC RBC Hgb Hct MCH RDW Plt Count Lymph % (Auto) [place] % (Auto) Lymph # (Auto) [place] # (Auto) Seg Neutrophils % Seg Neuts % (Manual) Lymphocytes % (Manual) Monocytes % (Manual) Basophils % (Manual) Nucleated RBC % Seg Neutrophils # Seg Neutrophils # Man Lymphocytes # (Manual) Monocytes # (Manual) Eosinophils # (Manual) Basophils # (Manual) PT INR APTT D-Dimer Heparin Anti-Xa Level ABG pH ABG pO2 ABG HCO3 ABG O2 Saturation ABG Base Excess ABG Hemoglobin Oxyhemoglobin Sodium 131 L D Potassium Chloride 97.0 L Carbon Dioxide BUN 34 H Creatinine 2.9 H Glucose POC Glucose 132 H 108 H Hemoglobin A1c Lactic Acid Calcium Phosphorus Magnesium Ferritin AST ALT Alkaline Phosphatase Lactate Dehydrogenase Troponin T C-Reactive Protein Total Protein Albumin LDL Cholesterol Direct Urine Creatinine Urine Total Protein Salicylates Acetaminophen Crossmatch 12/10/21 12/10/21 12/10/21 05:22 07:48 11:30 WBC 14.5 H RBC 2.65 L Hgb 7.7 L Hct 23.6 L MCH RDW 17.0 H Plt Count 119 L Lymph % (Auto) [place] % (Auto) Lymph # (Auto) [place] # (Auto) Seg Neutrophils % Seg Neuts % (Manual) 73.0 H Lymphocytes % (Manual) 7.0 L Monocytes % (Manual) Basophils % (Manual) 2.0 H Nucleated RBC % 1.0 H Seg Neutrophils # Seg Neutrophils # Man 10.6 H Lymphocytes # (Manual) 1.0 L Monocytes # (Manual) Eosinophils # (Manual) Basophils # (Manual) 0.3 H PT INR APTT D-Dimer Heparin Anti-Xa Level ABG pH ABG pO2 ABG HCO3 ABG O2 Saturation ABG Base Excess ABG Hemoglobin Oxyhemoglobin Sodium Potassium Chloride Carbon Dioxide BUN Creatinine Glucose POC Glucose 106 H 129 H Hemoglobin A1c Lactic Acid Calcium Phosphorus Magnesium Ferritin AST ALT Alkaline Phosphatase Lactate Dehydrogenase Troponin T C-Reactive Protein Total Protein Albumin LDL Cholesterol Direct Urine Creatinine Urine Total Protein Salicylates Acetaminophen Crossmatch 12/10/21 12/10/21 12/10/21 16:17 20:56 21:40 WBC RBC Hgb Hct MCH RDW Plt Count Lymph % (Auto) [place] % (Auto) Lymph # (Auto) [place] # (Auto) Seg Neutrophils % Seg Neuts % (Manual) Lymphocytes % (Manual) Monocytes % (Manual) Basophils % (Manual) Nucleated RBC % Seg Neutrophils # Seg Neutrophils # Man Lymphocytes # (Manual) Monocytes # (Manual) Eosinophils # (Manual) Basophils # (Manual) PT INR APTT D-Dimer Heparin Anti-Xa Level 0.87 H ABG pH ABG pO2 ABG HCO3 ABG O2 Saturation ABG Base Excess ABG Hemoglobin Oxyhemoglobin Sodium Potassium Chloride Carbon Dioxide BUN Creatinine Glucose POC Glucose 108 H 113 H Hemoglobin A1c Lactic Acid Calcium Phosphorus Magnesium Ferritin AST ALT Alkaline Phosphatase Lactate Dehydrogenase Troponin T C-Reactive Protein Total Protein Albumin LDL Cholesterol Direct Urine Creatinine Urine Total Protein Salicylates Acetaminophen Crossmatch 12/11/21 12/11/21 12/11/21 05:21 05:21 08:10 WBC RBC Hgb Hct MCH RDW Plt Count Lymph % (Auto) [place] % (Auto) Lymph # (Auto) [place] # (Auto) Seg Neutrophils % Seg Neuts % (Manual) Lymphocytes % (Manual) Monocytes % (Manual) Basophils % (Manual) Nucleated RBC % Seg Neutrophils # Seg Neutrophils # Man Lymphocytes # (Manual) Monocytes # (Manual) Eosinophils # (Manual) Basophils # (Manual) PT INR APTT D-Dimer Heparin Anti-Xa Level 0.85 H ABG pH ABG pO2 ABG HCO3 ABG O2 Saturation ABG Base Excess ABG Hemoglobin Oxyhemoglobin Sodium 129 L Potassium Chloride 94.3 L Carbon Dioxide BUN 41 H Creatinine 3.0 H Glucose 111 H POC Glucose 109 H Hemoglobin A1c Lactic Acid Calcium Phosphorus Magnesium Ferritin AST ALT Alkaline Phosphatase Lactate Dehydrogenase Troponin T C-Reactive Protein Total Protein Albumin LDL Cholesterol Direct Urine Creatinine Urine Total Protein Salicylates Acetaminophen Crossmatch 12/11/21 12/11/21 12/11/21 12:00 13:08 13:08 WBC 13.6 H RBC 2.78 L Hgb 8.1 L Hct 25.2 L MCH RDW 17.7 H Plt Count Lymph % (Auto) [place] % (Auto) Lymph # (Auto) [place] # (Auto) Seg Neutrophils % Seg Neuts % (Manual) Lymphocytes % (Manual) Monocytes % (Manual) Basophils % (Manual) Nucleated RBC % Seg Neutrophils # Seg Neutrophils # Man Lymphocytes # (Manual) Monocytes # (Manual) Eosinophils # (Manual) Basophils # (Manual) PT INR APTT 116.8 H* D-Dimer Heparin Anti-Xa Level ABG pH ABG pO2 ABG HCO3 ABG O2 Saturation ABG Base Excess ABG Hemoglobin Oxyhemoglobin Sodium Potassium Chloride Carbon Dioxide BUN Creatinine Glucose POC Glucose 170 H Hemoglobin A1c Lactic Acid Calcium Phosphorus Magnesium Ferritin AST ALT Alkaline Phosphatase Lactate Dehydrogenase Troponin T C-Reactive Protein Total Protein Albumin LDL Cholesterol Direct Urine Creatinine Urine Total Protein Salicylates Acetaminophen Crossmatch 12/11/21 12/12/21 12/12/21 13:08 05:15 14:10 WBC RBC Hgb Hct MCH RDW Plt Count Lymph % (Auto) [place] % (Auto) Lymph # (Auto) [place] # (Auto) Seg Neutrophils % Seg Neuts % (Manual) Lymphocytes % (Manual) Monocytes % (Manual) Basophils % (Manual) Nucleated RBC % Seg Neutrophils # Seg Neutrophils # Man Lymphocytes # (Manual) Monocytes # (Manual) Eosinophils # (Manual) Basophils # (Manual) PT INR APTT D-Dimer Heparin Anti-Xa Level ABG pH 7.333 L ABG pO2 57.0 L ABG HCO3 ABG O2 Saturation 88.0 L ABG Base Excess ABG Hemoglobin 7.6 L Oxyhemoglobin 85.4 L Sodium 129 L Potassium 5.1 H Chloride 95.8 L Carbon Dioxide 21 L BUN 48 H Creatinine 3.0 H 2.9 H Glucose POC Glucose Hemoglobin A1c Lactic Acid Calcium Phosphorus Magnesium Ferritin AST ALT Alkaline Phosphatase Lactate Dehydrogenase Troponin T C-Reactive Protein Total Protein Albumin LDL Cholesterol Direct Urine Creatinine Urine Total Protein Salicylates Acetaminophen Crossmatch 12/12/21 12/13/21 12/13/21 21:25 06:19 16:21 WBC 12.9 H RBC 2.54 L Hgb 7.2 L Hct 22.8 L MCH RDW 18.0 H Plt Count Lymph % (Auto) [place] % (Auto) Lymph # (Auto) [place] # (Auto) Seg Neutrophils % Seg Neuts % (Manual) Lymphocytes % (Manual) Monocytes % (Manual) Basophils % (Manual) Nucleated RBC % Seg Neutrophils # Seg Neutrophils # Man Lymphocytes # (Manual) Monocytes # (Manual) Eosinophils # (Manual) Basophils # (Manual) PT INR APTT D-Dimer Heparin Anti-Xa Level ABG pH ABG pO2 ABG HCO3 ABG O2 Saturation ABG Base Excess ABG Hemoglobin Oxyhemoglobin Sodium Potassium Chloride Carbon Dioxide BUN Creatinine Glucose POC Glucose 125 H 117 H Hemoglobin A1c Lactic Acid Calcium Phosphorus Magnesium Ferritin AST ALT Alkaline Phosphatase Lactate Dehydrogenase Troponin T C-Reactive Protein Total Protein Albumin LDL Cholesterol Direct Urine Creatinine Urine Total Protein Salicylates Acetaminophen Crossmatch 12/13/21 12/14/21 12/14/21 21:20 06:36 12:17 WBC RBC Hgb Hct MCH RDW Plt Count Lymph % (Auto) [place] % (Auto) Lymph # (Auto) [place] # (Auto) Seg Neutrophils % Seg Neuts % (Manual) Lymphocytes % (Manual) Monocytes % (Manual) Basophils % (Manual) Nucleated RBC % Seg Neutrophils # Seg Neutrophils # Man Lymphocytes # (Manual) Monocytes # (Manual) Eosinophils # (Manual) Basophils # (Manual) PT INR APTT D-Dimer Heparin Anti-Xa Level ABG pH ABG pO2 ABG HCO3 ABG O2 Saturation ABG Base Excess ABG Hemoglobin Oxyhemoglobin Sodium 132 L Potassium Chloride Carbon Dioxide BUN 43 H Creatinine 1.9 H Glucose POC Glucose 114 H 130 H Hemoglobin A1c Lactic Acid Calcium Phosphorus Magnesium Ferritin AST ALT < 5 L Alkaline Phosphatase Lactate Dehydrogenase Troponin T C-Reactive Protein Total Protein 6.0 L Albumin 3.0 L LDL Cholesterol Direct Urine Creatinine Urine Total Protein Salicylates Acetaminophen Crossmatch 12/14/21 12/14/21 12/15/21 16:25 20:49 03:59 WBC RBC 2.37 L Hgb 6.9 L Hct 21.4 L MCH RDW 18.4 H Plt Count Lymph % (Auto) [place] % (Auto) Lymph # (Auto) [place] # (Auto) Seg Neutrophils % Seg Neuts % (Manual) Lymphocytes % (Manual) Monocytes % (Manual) Basophils % (Manual) Nucleated RBC % Seg Neutrophils # Seg Neutrophils # Man Lymphocytes # (Manual) Monocytes # (Manual) Eosinophils # (Manual) Basophils # (Manual) PT INR APTT D-Dimer Heparin Anti-Xa Level ABG pH ABG pO2 ABG HCO3 ABG O2 Saturation ABG Base Excess ABG Hemoglobin Oxyhemoglobin Sodium Potassium Chloride Carbon Dioxide BUN Creatinine Glucose POC Glucose 128 H 126 H Hemoglobin A1c Lactic Acid Calcium Phosphorus Magnesium Ferritin AST ALT Alkaline Phosphatase Lactate Dehydrogenase Troponin T C-Reactive Protein Total Protein Albumin LDL Cholesterol Direct Urine Creatinine Urine Total Protein Salicylates Acetaminophen Crossmatch 12/15/21 12/15/21 06:06 12:08 WBC RBC Hgb Hct MCH RDW Plt Count Lymph % (Auto) [place] % (Auto) Lymph # (Auto) [place] # (Auto) Seg Neutrophils % Seg Neuts % (Manual) Lymphocytes % (Manual) Monocytes % (Manual) Basophils % (Manual) Nucleated RBC % Seg Neutrophils # Seg Neutrophils # Man Lymphocytes # (Manual) Monocytes # (Manual) Eosinophils # (Manual) Basophils # (Manual) PT INR APTT D-Dimer Heparin Anti-Xa Level ABG pH ABG pO2 ABG HCO3 ABG O2 Saturation ABG Base Excess ABG Hemoglobin Oxyhemoglobin Sodium 133 L Potassium Chloride Carbon Dioxide BUN 42 H Creatinine 1.5 H Glucose POC Glucose Hemoglobin A1c Lactic Acid Calcium Phosphorus Magnesium Ferritin AST ALT Alkaline Phosphatase Lactate Dehydrogenase Troponin T C-Reactive Protein Total Protein Albumin LDL Cholesterol Direct Urine Creatinine Urine Total Protein Salicylates Acetaminophen Crossmatch See Detail Allied health notes reviewed: nursing
[2021-12-15] MEDS: EPOETIN ALFA-EPBX 10,000 UNIT/1 ML VIAL IV PRN (15:15)
--- NOTE | 2021-12-15 15:42 | Progress Note ---
Assessment and Plan Patient is a 66-year-old female with unknown past medical history brought into the ED following outside of hospital cardiac arrest thought to be PEA with thought to have downtime of 7 to 9 minutes however details are unclear S/P PEA cardiopulmonary arrest- Acute hypoxic respiratory failure-pulm following Septic shock Bacteremia Pneumonia Acute renal failure on HD-nephrology following Atrial flutter w/ RVR Pneumothorax- s/p CT Acute bilateral DVT-on Eliquis Hypokalemia Transaminitis Retroperitoneal Hematoma s/p IVC Echo 10/30/2021-technically difficult study due to body habitus. EF 25 to 30%. Right ventricular systolic function is normal. No pericardial effusion Lexiscan MPI stress test 12/13/2021-technically difficult study but grossly normal stress MPI. EF of 37% Plan: Continue metoprolol 100 mg p.o. twice daily a.m., amiodarone 200 mg p.o. twice daily LAYO/ARB on hold due to patient being unable to tolerate and having hypotension Volume management per nephrology due to end-stage renal disease on hemodialysis Patient currently anticoagulated on Eliquis Patient found to be anemic this a.m. with hemoglobin of 6.9. Patient to receive blood transfusion. Close monitoring of H&H and signs of bleeding Discussed need for anticoagulation with hospitalist due to patient's A. fib and history of DVTs. Patient seen in conjunction with Dr. Cueto who agrees with this plan of care - Patient Problems (1) Cardiopulmonary arrest Current Visit: Yes Status: Acute (2) Hypokalemia Current Visit: Yes Status: Acute (3) Transaminitis Current Visit: Yes Status: Acute (4) Aspiration pneumonia Current Visit: Yes Status: Acute (5) Acute hypoxemic respiratory failure Current Visit: Yes Status: Acute (6) Septic shock Current Visit: Yes Status: Acute (7) Toxic metabolic encephalopathy Current Visit: Yes Status: Acute (8) Shock liver Current Visit: Yes Status: Acute Subjective Date of service: 12/15/21 Principal diagnosis: AHRF; Cardiac arrest; R. pneumothorax; pneumonia; AMS; DVT's; SIERRA; Obesity Interval history: Patient resting in bed with family at bedside. Patient A. fib rate trending 90s on monitor Objective Vital Signs Temp Pulse Resp BP BP Pulse Ox Pulse Ox 12/15/21 15:00 98 F 107 H 18 114/69 100 12/15/21 14:36 98.2 F 98 H 18 125/65 100 12/15/21 12:30 114 H 110/66 12/15/21 12:15 98.2 F 104 H 18 130/84 100 12/15/21 11:12 98.2 F 121 H 16 103/54 100 12/15/21 10:38 55 L 12/15/21 07:42 97.9 F 55 L 16 121/94 94 12/15/21 03:19 98.0 F 48 L 16 121/63 100 12/15/21 02:02 98 12/14/21 23:06 97.8 F 48 L 16 104/58 100 12/14/21 22:17 102 H 12/14/21 22:00 100 12/14/21 20:00 97 H 12/14/21 19:31 98.6 F 117 H 20 147/72 100 12/14/21 15:57 97 H 12/14/21 15:46 98.9 F 74 26 H 131/70 99 - Physical Examination General: No Apparent Distress HEENT: Positive: Normocephaly, Mucus Membranes Moist Neck: Positive: trachea midline. Negative: JVD/HJR Cardiac: Positive: irregularly irregular Lungs: Positive: Decreased Breath Sounds Neuro: Positive: Grossly Intact Abdomen: Positive: Soft, Active Bowel Sounds Skin: Negative: Rash Musculoskeletal: No Pain Extremities: Present: +2 Edema, warm - Labs and Meds CBC 12/15/21 Range/Units 03:59 WBC 10.0 (4.5-11.0) K/mm3 RBC 2.37 L (3.65-5.03) M/mm3 Hgb 6.9 L (10.1-14.3) gm/dl Hct 21.4 L (30.3-42.9) % Plt Count 268 (140-440) K/mm3 Comprehensive Metabolic Panel 12/15/21 Range/Units 06:06 Sodium 133 L (137-145) mmol/L Potassium 4.8 (3.6-5.0) mmol/L Chloride 100.0 (98-107) mmol/L Carbon Dioxide 23 (22-30) mmol/L BUN 42 H (7-17) mg/dL Creatinine 1.5 H (0.6-1.2) mg/dL Glucose 97 (65-100) mg/dL Calcium 9.1 (8.4-10.2) mg/dL - Imaging and Cardiology EKG: report reviewed, image reviewed Echo: report reviewed - Telemetry EKG Rhythm: Atrial Fibrillation - EKG Supraventricular dysrhythmia: atrial fibrillation Ventricular dysrhythmias: ventricular premature com Repolarization changes or abnormalities: nonspecific abnormality, ST segment, and/or T wave Myocardial infarction: septal CO (old age or ind - Allied health notes Allied health notes reviewed: nursing
[2021-12-15] MEDS: SENNOSIDES/DOCUSATE SODIUM 8.6/50 MG TAB PO SCH ×2 (19:57→22:39)
--- NOTE | 2021-12-15 20:43 | Progress Note ---
Assessment and Plan Assessment and plan: 66 YO Female with Obesity was attending [facility] services when the patient collapsed and lost consciousness. Witnesses began CPR. EMS was notified and upon arrival the patient was found to be in distress without perfusing cardiac rhythm. Patient initiated on ACLS protocol and subsequently intubated in the field and transported to ED. The patient regained spontaneous circulation during transport. She was found to have acute hypoxemic respiratory failure, septic shock suspected secondary to aspiration pneumonia, metabolic acidosis, toxic metabolic encephalopathy, shock liver, and cardiac arrest with return of perfusing cardiac rhythm after initiation of ACLS protocol. Patient initiated on sepsis protocol as well as pneumonia protocol. Patient admitted to ICU. Patient improved, extubated on 11/11 and transferred to floor on 11/19. s/p cardiac arrest, collapse at [facility], HFrEF, shock/hypotension resolved Atrial fibrillation/atrial flutter -Cardiac arrest and collapse at [facility] with ROSC -Cardiology consulted, appreciate recommendations - S/p Cardizem gtt- d/c due to low EF; now on PO Amio -s/p vasopressor support with levophed -Echocardiogram shows left ventricular systolic function severely decreased, LVEF 25 to 30%, no pericardial effusion -proBNP 5622 -Continue Lasix 20 mg twice daily, BB, spironolactone, losartan -No significant volume overload clinically Acute hypoxic respiratory failure, right pneumothorax, Angioedema (resolved), pulmonary edema -[facility] consulted, appreciate recommendations -Intubated on 10/29 and extubated on 11/11 -Bipap q HS and prn, at high risk for KOLBY with morbid obesity -NC during day -s/p right chest tube for pneumothorax -s/p steroids for angioedema -On Lasix for pulmonary edema. Transaminitis likely shocked liver - resolved Acute kidney injury likely secondary to vasomotor nephropathy, hypernatremia -Nephrology consulted, appreciate recommendations -Krishna replaced 11/05 urinary retention -FeNa 0.05 indicating pre-renal -SIERRA and hyponatremia resolved. Creatinine 1.0 on Lasix IV Shock cardiogenicsuspected sepsis -Fever was as high as 102 with a leukocytosis Blood, urine and sputum cultures negative -COVID-19 PCR negative -S/p empiric antibiotic therapy for possible pneumonia with Rocephin and azithromycin () -S/p Levophed gtt for hypotension -Fever and leukocytosis resolved -Monitor WBC and temperature curve Acute Metabolic encephalopathy, agitation/anxiety -Etiology likely from a cardiac arrest, shock and cerebral hypoperfusion CT head no acute focal parenchymal lesion in the brain -Neurology consulted, appreciate recommendations -EEG and MRI noted, Neuro recommend to cut down on sedation as possible Mental status significantly improved, currently fairly alert and oriented. Answers appropriately. Acute DVT in the left posterior tibial vein and bilateral peroneal veins, Anemia, retroperitoneal bleed -D-dimer greater than 10,000 -CTA chest with no evidence of PE -Bilateral lower extremity ultrasound positive for DVT -Heparin gtt on hold d/t anemia, received PRBC x4 -vasuclar surgery consulted, appreciate recommendations -recommended multiphasic CT angio of the abdomen and pelvis with and without contrast if H/H drops and did not recommend IVC filter at this time as the DVTs are infrapopliteal and recommends a follow-up DVT study weekly for 2 weeks. Repeat venous duplex ultrasound on 11/21 showed progression of left peroneal DVT extending into popliteal vein. Vascular surgery completed IVC filter placement on 11/22. -Trend CBC -SCDs to BLE while in bed -Transfuse hemoglobin less than 7 -Monitor for signs of bleeding -Hemoglobin stable, 8.6 Hypertension, not able be controlled Increase losartan 200 mg daily and add hydralazine as needed. Hyperglycemia ,resolved) -Avoid hypoglycemia -Hbg A1C 6.7 -SSI and lantus q hs (titrate as needed) -Accu-Cheks q. 6 Morbid obesity High risk for KOLBY On nightly BiPAP Deconditioning PT/OT Hospital Course to Date: 10/30: Intubated and sedated, on fentanyl gtt. Open eyes spontaneously but does not follow any commands. On vasopressors, titrate as tolerated for MAP above 65. Patient febrile overnight, continue empiric IV Abx, culture data and COVID PCR pending. Patient is also s/p CT placement due to spontaneous pneumothorax. 2D echo is pending and Cardiology is consulted. 10/31: Patient remains intubated and following commands. Levophed drip stopped and potassium repleted. Patient started on tube feeding. Remains in soft bilateral restraints. 11/01: RN noted ST changes on BSM and 12 lead EKG obtained which showed ST. Given Ativan 1mg for agitation as she is maxed on fentanyl drip and IV push fentanyl did not seem to help. Patient was started on CPAP this morning by RT but remained on fentanyl drip and was having periods of apnea. Plan was to retry CPAP again in the p.m. with sedation off. 11/02: Rate increased r/t hypercapnea on ABG, sedation reduced. Given kionex for hyperkalemia and was started on levophed overnight for hypotension. 11/03: Overnight patient had tachycardia and was given Cardizem and Lopressor. Lopressor was repeated in the a.m. due to tachycardia. Patient will be started on amiodarone with a bolus per cardiology. Patient started on normal saline per liter per [facility] and steroids for angioedema. Noted to have bright red blood when suctioned from oh ETT. Remains on heparin drip as H/H is stable for now. Will reevaluate. Fentanyl drip was restarted last night due to agitation. Dr. Flores updated family today 11/04: Patient was sedated on fentanyl however off sedation is able to follow commands, a.m. labs completed in the p.m. and show hyperkalemia with increased renal function studies. Nephrology, neurology consulted by [facility]. Given Kayexalate, insulin and D50 for hyperkalemia. Patient remains on amiodarone. 11/05: Patient needed to be sedated on fentanyl again to today. overnight krishna was replaced. Hyperkalemia->given kionex 60 for 5.6. Repeat K 6-> Dr. Grant informed and requested bumex, kionex, insulin, d50, calcium gluconate and sodium bicarb with repeat BMP in 2 hours which were placed. HR remains elevated. 11/06: Patient remained in atrial fibrillation/atrial flutter with heart rate in the 150s despite being on amnio drip and was given amnio bolus, Cardizem bolus and started on Cardizem drip by cardiology. Patient is on beta-blockers p.o. scheduled and to feedings changed to Nepro. Kayexalate was given in the morning by nephrology due to hyperkalemia. 11/07: Patient is only responsive to mild stimuli, precedex added in an attempt to wean off fentanyl gtt to better assess her mental status. Neurology also on consult, pending MRI and EEG. Patient remains in Aflutter this am, HR in the 80 to 90s, still on amiodarone and heparin gtt. 11/08: Fentanyl gtt is off, only on precedex gtt. Patient is still not following any commands. MRI brain and EEG completed. Neuro recommendations noted, sedatives agents decreased. FWF added for hypernatremia and low K repleted, repeat labs ordered. Placed a call and spoke with patient's daughter, Eva Brown . She was updated on patient's conditions and status. All questions and concerns were voiced at this time. 11/09: Patient is awake and alert this am, following commands and appropriate. Remains on precedex gtt, plan for possible PST today. Hypertensive overnight, meds adjusted by Cardio and PRN Hydralazine added for SBP greater than 160. CT dislodged overnight, CXR is stable with no significant change. F/U CXR in the am. Patient's daughter, Eva Brown, visited with patient. She was updated on patient's status and goal of care for today. All questions and concerns were voiced at this time. 11/10: Mentation remains intact, still on precedex gtt. This am CXR noted still with fluid overload s/p X1 dose of IV lasix, good response from IV lasix overnight. Hypernatremia improved, D5W d/dayday. Still with persistent hypokalemia, continue electrolytes replacement and frequent lab check. Daily IV lasix and aldactone added by Cardio. Patient is also with persistent low grade fevers overnight, leukocytosis with mild improvement this am. Will get a repeat sputum culture, hold off on IV abx for now. Consider ID consult if fevers and leukocytosis persist. Patient tolerated PST X4hrs yesterday. PST again today, plan to wean to extubate if tolerated. 11/11: IAM overnight. Off precedex gtt and tolerated PST this am. Plan to wean to extubate today. Additional IV lasix given, plan to keep patient at a net negative balance for better lung compliance. F/U CXR in the am. K improved this am, repeat BMP this afternoon since diuresing. Remains with low grade fevers, leukocytosis downtrending, will continue to monitor. Speech/PT/OT ordered 11/12: S/p extubation, now stable on 3L NC. This am CXR noted with no significant changes, lasix changed to IV X4days BID. Drop in H&H this am, and Lt. flank ecchymosis noted. Heparin gtt on hold for now and orders placed for 1 unit of PRBCs and Ct Abd/Pelvis w/o con to r/o retroperitoneal bleed. Pending speech swallow eval, keep patient NPO for now. Patient is stable for IMCU status 11/13: Patient with increased WOB and tachycardia this am, patient was placed on Bipap and precedex gtt was resumed. CXR with mild improvement. CT Abd/Pelvis also reviewed large hematomas noted at the Lt. retroperitoneum and left posterior lateral abdominal wall. Heparin gtt is already on hold, patient is hemodynamically stable. Vascular Surgery consulted for possible IVC filter eval. Patient s/p 2units of PRBCs, will continue to trend H&H and transfuse if hbg is less than 7. Worsening renal function this am, IF diuretic on hold for now. Patient is also febrile with spike in wbcs most likely reactive to bleed, will panculture and hold off on IV Abx for now. Patient also failed speech bedside swallow eval yesterday, NGT in placed plan to resume enteral nutrition 11/14: Patient had bilateral lower extremity Doppler ultrasound and vascular surgery has recommended multiphasic CT angio of the abdomen and pelvis with and without contrast if H/H drops and does not recommend IVC filter at this time as the DVTs are infrapopliteal and recommends a DVT study weekly for 2 weeks. FWF 250 q4 ml per nephro. Started on as needed Xanax and p.o. amiodarone. She did not pass her ST evaluation today. Will be transferred to [facility]. 11/15: Resting comfortably on encounter. Speech cleared for pureed diet. Remains on 3l satting 98 % on bedside encounter. Does not appear to be in respiratory distress. Will continue to hold AC, No ivc filter planned at this time. qweekly doppler to monitor for migration of DVT per vascular. If demonstrated, will consider IVC filter. CBC ordered for tomorrow, will continue monitoring in light of retroperitoneal hematoma. FWF increased by nephrology to 350cc q4hr d/t hypernatremia. UOP/renal function both improved. D/w cardiology, will continue amiodorone an additional 24hrs. Plan to change dosing of metoprolol. Continue to wean off of precedex. Continue xanax scheduled for anxiety. physical therapy recs noted, fernanda / ltac will discuss with CM. Continue IMCU monitoring. 11/16: Pulmonary congestion this AM. CXR ordered. Lasix 40 mg IV x 1 order this AM. Will monitor for 24 hrs. potential downgrade to medical floor tomorrow. 11/17: Persisting pulmonary congestion, was on bipap overnight into this AM. Will order additional lasix 40 mg IV x 2. CXR ordered for AM. Possible downgrade to floor tomorrow. Anticipate d/c sunday. 11/18: Patient seen and examined, continue weaning, will continue diuresis BID, discussed with daughter. 11/19: Patient seen and examined this morning doing well no acute distress noted. Lasix was increased to twice daily to 20 mg IV. Clinically improving. Patient will be transferred to telemetry today can be switched to Lasix p.o. twice daily in a.m. She has her weekly Doppler of lower extremity tomorrow vascular is following for this. She was taken off anticoagulation secondary to retroperitoneal bleed., The anticoagulation was started initially for atrial fibrillation and an infrapopliteal DVT. During her hospital stay she had a prolonged ventilator management and was successfully weaned off. She also received a total of 4 units of packed red blood cell. Hemoglobin has remained stable. Anticipate discharge in next 48 hours if continues to clinically stay stable. : Transferred from ICU on 11/19. Progressive improving. Currently awake and oriented. O2 weaned to 4 L. Hemodynamically stable. BP control being optimized. MiraLAX for constipation. Hemoglobin stable on the heparin infusion, being monitored closely with history of retroperitoneal bleed. 11/21: Patient remains mostly bedridden. She is awake and oriented on 2 L of O2. Repeat ultrasound showed extension of left peroneal DVT into popliteal vein. Heparin was discontinued for significant retroperitoneal bleed and off anticoagulation since. Vascular surgery plan for placement of IVC filter tomorrow. Patient is chest pains, palpitations, hemoptysis. She has some cough. Left lower extremity pain likely from DVT better today. Discussed with the patient, nursing staff and vascular surgery. 11/22: The infrapopliteal vein thrombosis has propagated to the left popliteal vein. Vascular surgery to perform IVC filter placement today. 11/23: Vascular surgery placed IVC filter yesterday. Continue metoprolol 100 mg p.o. twice daily, Aldactone 25 mg p.o. daily and losartan 25 mg p.o. daily. Patient still requiring BiPAP (IPAP18, EPAP8) with FiO2 of 30%. Continue to wean oxygen per pulmonary recommendations. Nurse reports patient is having vaginal bleeding. We will check serial CBC and pelvic ultrasound 11/24: I discussed with cardiology yesterday the need for a LifeVest. LifeVest is ordered and pending. Patient is s/p IVC filter placement. Continue metoprolol 100 mg p.o. twice daily, Aldactone 25 mg p.o. daily and losartan 25 mg p.o. shaan ly. Patient still requiring BiPAP (IPAP18, EPAP8) with FiO2 of 30%. Continue to wean oxygen per pulmonary recommendations. No further reports of vaginal bleeding. Pelvic ultrasound negative 11/25: Awaiting for LifeVest. Patient is s/p IVC filter placement. Continue metoprolol 100 mg p.o. twice daily, Aldactone 25 mg p.o. daily and losartan 25 mg p.o. daily. Patient still requiring BiPAP (IPAP18, EPAP8) with FiO2 of 30%. Continue to wean oxygen per pulmonary recommendations. 11/26: Physical therapy recommends subacute rehab. Still awaiting LifeVest. Patient is s/p IVC filter placement. Continue metoprolol 100 mg p.o. twice daily, Aldactone 25 mg p.o. daily and losartan 25 mg p.o. daily. Patient still requiring BiPAP (IPAP18, EPAP8) with FiO2 of 30% at night. Continue to wean oxygen per pulmonary recommendations. Patient currently with 2 L O2. 11/27: Physical therapy recommends subacute rehab. Patient has a LifeVest. Patient's left lower extremity pain likely related to DVT. Continue pain control. Continue metoprolol 100 mg p.o. twice daily, Aldactone 25 mg p.o. daily and losartan 25 mg p.o. daily. Patient still requiring BiPAP (IPAP18, EPAP8) with FiO2 of 30% at night. 11/28: Physical therapy recommends subacute rehab. Patient has a LifeVest. Patient continues to complain of left lower extremity pain which makes it very difficult for ambulation. Continue Percocet for pain control. Add neurontin for possible neuropathy. Etiology is likely secondary to DVT. Continue metoprolol 100 mg p.o. twice daily, Aldactone 25 mg p.o. daily and losartan 25 m g p.o. daily. Patient still requiring BiPAP (IPAP18, EPAP8) with FiO2 of 30% at night. Repeated Doppler US of LLE and will ask vascular surgery to revisit. 11/29; worsening lower extremity DVTs, vascular following, on heparin drip 11/30; low-grade fever, leukocytosis, shortness of breath, chest x-ray possible left-sided pneumonia/possible healthcare associated pneumonia Blood cultures already sent, empiric antibiotic cefepime[renal dose confirmed with pharmacist] ID consult if needed 12/01; gram-positive bacteremia preliminary, add vancomycin 1 dose, repeat cultures, consult ID Worsening renal function, nephrology initiated hemodialysis today, patient is critically ill, very poor prognosis, with multiple comorbidities And critical issues. Test Designer recommendations noted and appreciated 12/02; Gram positive bacteremia/possible HCAP and sepsis, on cefepime and 1 dose Vanco. Nephrology initiated hemodialysis, ID consult. Patient is hypotensive, pulmonary critical recommended transfer to ICU and start vasopressors for close observation overnight. Dr. Padron discussed with patient's daughter over patient's telephone and discussed in detail patient's condition, new developments sepsis, renal failure on hemodialysis anticoagulation for DVT and severe cardiomyopathy, also discussed poor prognosis, and the plans of transferring the patient to ICU for close observation. Many questions, and answered all of them. dr. Padron also discussed with granddaughter at the bedside and patient was moved to ICU, She had numerous questions answered all of them and discussed the current con dition prognosis and treatment plan. She verbalized understanding 12/03: Patient was transferred to ICU yesterday evening for hypotension however she did not need to be started on any vasopressin therapy. Patient is on p.o. midodrine and all her antihypertensives have been held. She also received albumin bolus. Patient will be transferred to the floor today. Still complains of bilateral lower extremity pain. Patient is on cefepime and she is scheduled for dialysis today. 12/04: Some complaint of leg pain. Percocet given for pain control. Patient is very deconditioned, will need aggressive PT. Will work on d/c planning with cm. 12/05: Patient does not appear to be in distress this AM. tachycardic hr on encounter and overnight, was given diltiazem by de icer. Cardiology initiated metoprolol and amiodorone on patient this morning. She denies any pain except for discomfort in left lower extremity. Controlled with percocet. She also states that she does not have any urine output and has been constipated. Will order bowel regimen. Discharge needs discussed with CM which include Lifevest, BIPAP for nightly use, and possible set up for dialysis. She was visiting on a visa to the from [place] however is technically a citizen of [place] which makes placement a continued challenge. 12/06: Case management reports patient will need LifeVest, walker, CPAP and arrangements for outpatient hemodialysis. However, patient is uninsured. I discussed with the daughter Eva plans for home hospice. Eva reports that she is willing to have hospice to obtain additional resources but is not wanting palliative care/comfort measures. 12/07: Awaiting LifeVest and outpatient HD arrangements. I d/w CM discharge planning. Pt still with heparin drip but amiodarone changed to p.o. 200mg BID. Cont. Metoprolol 50mg BID. Hold LAYO and ARB for renal fxn. Patient for outpatient ischemic evaluation per Cardiology. Leukocytosis likely related to retroperitoneal hematoma. ID wants to monitor off abx. 12/08: Awaiting LifeVest and outpatient HD arrangements. I d/w CM discharge p xmiena. Pt still with heparin drip. Await cardiology recommendations to transition to p.o. anticoagulation. Patient for outpatient ischemic evaluation per Cardiology. Leukocytosis likely related to retroperitoneal hematoma. Continue to monitor off antibiotics. Continue volume management per nephrology with hemodialysis 12/09: Patient with PermCath placement today. Nephrology reports patient hypotensive during hemodialysis and started 10 mg of midodrine for hypotension. Losartan discontinued. Continue to obtain daily weights and Strict I/O's. Renally dose medications and avoid nephrotoxic agents. Patient for outpatient ischemic evaluation per Cardiology. Leukocytosis likely related to retroperitoneal hematoma. Continue to monitor off antibiotics. Awaiting LifeVest and outpatient HD arrangements. 12/10: Continue hemodialysis per nephrology recommendations. We will discontinue heparin drip and start Eliquis 5 mg p.o. twice daily for anticoagulation. Blood pressure appears to be improved. Continue midodrine. Continue to obtain daily weights and Strict I/O's. Renally dose medications and avoid nephrotoxic agents. Patient for outpatient ischemic evaluation per Cardiology. Leukocytosis likely related to retroperitoneal hematoma. Continue to monitor off antibiotics. Awaiting LifeVest and outpatient HD arrangements. 12/11: Cardiology plans for Lexiscan in a.m. Continue hemodialysis per nephrology recommendations. We will discontinue heparin drip and start Eliquis 5 mg p.o. twice daily for anticoagulation. Blood pressure appears to be improved. Continue midodrine. Continue to obtain daily weights and Strict I/O's. Renally dose medications and avoid nephrotoxic agents. 12/12: Lexiscan this morning per cardiology. Continue hemodialysis per nephrology recommendations. Continue Eliquis for anticoagulation. Continue midodrine. Continue to obtain daily weights and Strict I/O's. Renally dose medications and avoid nephrotoxic agents. 12/14; Lexiscan test yesterday was negative for ischemia, patient receiving physical therapy, hemodialysis DC planning per case management. Hospice placement, multiple social issues 3;24; received 1 unit PRBC transfusion as patient has anemia with hemoglobin of 6.9 follow H&H and transfuse additional PRBC as needed DC planning per case management History Interval history: Seen and examined the patient at the bedside Patient received dialysis Anemia 1 unit of PRBC transfusion today No new complaints Hospitalist Physical - Constitutional Vitals: Temp Pulse Resp BP Pulse Ox 98.2 F 82 18 134/56 100 12/15/21 15:30 12/15/21 15:30 12/15/21 15:30 12/15/21 15:30 12/15/21 15:30 General appearance: Present: no acute distress, well-nourished, obese (Morbidly obese), other (Minimally communicative) - EENT Eyes: Present: PERRL, EOM intact - Neck Neck: Present: supple, normal ROM - Respiratory Respiratory effort: normal Respiratory: bilateral: diminished, negative: rales, rhonchi, wheezing - Cardiovascular Rhythm: regular Heart Sounds: Present: S1 & S2 - Extremities Extremities: no ischemia, No edema - Abdominal General gastrointestinal: soft, non-tender, non-distended, normal bowel sounds - Integumentary Integumentary: Present: clear, warm - Psychiatric Psychiatric: appropriate mood/affect, cooperative - Neurologic Neurologic: CNII-XII intact, moves all extremities HEART Score - HEART Score Troponin: Troponin T 1.150 ng/mL (0.00-0.029) H* D 10/29/21 22:34 Results - Labs CBC & Chem 7: 12/15/21 03:59 12/15/21 06:06 Labs: Laboratory Last Values WBC 10.0 K/mm3 (4.5-11.0) 12/15/21 03:59 RBC 2.37 M/mm3 (3.65-5.03) L 12/15/21 03:59 Hgb 6.9 gm/dl (10.1-14.3) L 12/15/21 03:59 Hct 21.4 % (30.3-42.9) L 12/15/21 03:59 MCV 90 fl (79-97) 12/15/21 03:59 MCH 29 pg (28-32) 12/15/21 03:59 MCHC 32 % (30-34) 12/15/21 03:59 RDW 18.4 % (13.2-15.2) H 12/15/21 03:59 Plt Count 268 K/mm3 (140-440) 12/15/21 03:59 Lymph % (Auto) 11.1 % (13.4-35.0) L 11/29/21 13:51 Bremer % (Auto) 15.5 % (0.0-7.3) H 11/29/21 13:51 Eos % (Auto) 1.0 % (0.0-4.3) 11/29/21 13:51 Baso % (Auto) 0.6 % (0.0-1.8) 11/29/21 13:51 Lymph # (Auto) 1.4 K/mm3 (1.2-5.4) 11/29/21 13:51 Bremer # (Auto) 2.0 K/mm3 (0.0-0.8) H 11/29/21 13:51 Eos # (Auto) 0.1 K/mm3 (0.0-0.4) 11/29/21 13:51 Baso # (Auto) 0.1 K/mm3 (0.0-0.1) 11/29/21 13:51 Add Manual Diff Complete 12/10/21 05:22 Total Counted 100 12/10/21 05:22 Seg Neutrophils % 71.8 % (40.0-70.0) H 11/29/21 13:51 Seg Neuts % (Manual) 73.0 % (40.0-70.0) H 12/10/21 05:22 Band Neutrophils % 12.0 % 12/10/21 05:22 Lymphocytes % (Manual) 7.0 % (13.4-35.0) L 12/10/21 05:22 Reactive Lymphs % (Man) 0 % 12/10/21 05:22 Monocytes % (Manual) 1.0 % (0.0-7.3) 12/10/21 05:22 Eosinophils % (Manual) 1.0 % (0.0-4.3) 12/10/21 05:22 Basophils % (Manual) 2.0 % (0.0-1.8) H 12/10/21 05:22 Metamyelocytes % 0 % 12/10/21 05:22 Myelocytes % 4.0 % 12/10/21 05:22 Promyelocytes % 0 % 12/10/21 05:22 Blast Cells % 0 % 12/10/21 05:22 Nucleated RBC % 1.0 % (0.0-0.9) H 12/10/21 05:22 Seg Neutrophils # 9.3 K/mm3 (1.8-7.7) H 11/29/21 13:51 Seg Neutrophils # Man 10.6 K/mm3 (1.8-7.7) H 12/10/21 05:22 Band Neutrophils # 1.7 K/mm3 12/10/21 05:22 Lymphocytes # (Manual) 1.0 K/mm3 (1.2-5.4) L 12/10/21 05:22 Abs React Lymphs (Man) 0.0 K/mm3 12/10/21 05:22 Monocytes # (Manual) 0.1 K/mm3 (0.0-0.8) 12/10/21 05:22 Eosinophils # (Manual) 0.1 K/mm3 (0.0-0.4) 12/10/21 05:22 Basophils # (Manual) 0.3 K/mm3 (0.0-0.1) H 12/10/21 05:22 Metamyelocytes # 0.0 K/mm3 12/10/21 05:22 Myelocytes # 0.6 K/mm3 12/10/21 05:22 Promyelocytes # 0.0 K/mm3 12/10/21 05:22 Blast Cells # 0.0 K/mm3 12/10/21 05:22 WBC Morphology Not Reportable 12/10/21 05:22 Hypersegmented Neuts Not Reportable 12/10/21 05:22 Hyposegmented Neuts Not Reportable 12/10/21 05:22 Hypogranular Neuts Not Reportable 12/10/21 05:22 Smudge Cells Not Reportable 12/10/21 05:22 Toxic Granulation Not Reportable 12/10/21 05:22 Toxic Vacuolation Not Reportable 12/10/21 05:22 Dohle Bodies Not Reportable 12/10/21 05:22 Pelger-Huet Anomaly Not Reportable 12/10/21 05:22 Manny Rods Not Reportable 12/10/21 05:22 Platelet Estimate Consistent w auto 12/10/21 05:22 Clumped Platelets Not Reportable 12/10/21 05:22 Plt Clumps, EDTA Not Reportable 12/10/21 05:22 Large Platelets Not Reportable 12/10/21 05:22 Giant Platelets Not Reportable 12/10/21 05:22 Platelet Satelliting Not Reportable 12/10/21 05:22 Plt Morphology Comment Not Reportable 12/10/21 05:22 RBC Morphology Not Reportable 12/10/21 05:22 Dimorphic RBCs Not Reportable 12/10/21 05:22 Polychromasia Not Reportable 12/10/21 05:22 Hypochromasia 1+ 12/10/21 05:22 Poikilocytosis Not Reportable 12/10/21 05:22 Anisocytosis 1+ 12/10/21 05:22 Microcytosis Not Reportable 12/10/21 05:22 Macrocytosis Not Reportable 12/10/21 05:22 Spherocytes Not Reportable 12/10/21 05:22 Pappenheimer Bodies Not Reportable 12/10/21 05:22 Sickle Cells Not Reportable 12/10/21 05:22 Target Cells Not Reportable 12/10/21 05:22 Tear Drop Cells Not Reportable 12/10/21 05:22 Ovalocytes Not Reportable 12/10/21 05:22 Helmet Cells Not Reportable 03/19/22 05:22 [place] Bodies Not Reportable 12/10/21 05:22 Faith Rings Not Reportable 12/10/21 05:22 [place] Cells Not Reportable 12/10/21 05:22 Bite Cells Not Reportable 12/10/21 05:22 Crenated Cell Not Reportable 12/10/21 05:22 Elliptocytes Not Reportable 12/10/21 05:22 Acanthocytes (Spur) Not Reportable 12/10/21 05:22 Rouleaux Not Reportable 12/10/21 05:22 Hemoglobin C Crystals Not Reportable 12/10/21 05:22 Schistocytes Not Reportable 12/10/21 05:22 Malaria parasites Not Reportable 12/10/21 05:22 Magdy Bodies Not Reportable 12/10/21 05:22 Hem Pathologist Commnt No 12/10/21 05:22 PT 13.4 Sec. (12.2-14.9) 12/11/21 13:08 INR 0.92 (0.87-1.13) 12/11/21 13:08 APTT 116.8 Sec. (24.2-36.6) H* 12/11/21 13:08 D-Dimer > 63194 ng/mlDDU (0-234) H 10/30/21 Unknown Heparin Anti-Xa Level Cancelled 12/11/21 13:08 ABG pH 7.333 pH Units (7.350-7.450) L 12/12/21 14:10 ABG pCO2 50.1 mm Hg 12/12/21 14:10 ABG pO2 57.0 mm Hg (80.0-90.0) L 12/12/21 14:10 ABG HCO3 26.0 mmol/L (20.0-26.0) 12/12/21 14:10 ABG O2 Saturation 88.0 % (95.0-99.0) L 12/12/21 14:10 ABG O2 Content 9.1 (0.0-44) 12/12/21 14:10 ABG Base Excess 0.0 mmol/L (-2.0-3.0) 12/12/21 14:10 ABG Hemoglobin 7.6 gm/dl (12.0-16.0) L 12/12/21 14:10 ABG Carboxyhemoglobin 2.2 % (0.0-5.0) 12/12/21 14:10 ABG Methemoglobin 0.7 % (0.0-1.5) 12/12/21 14:10 Oxyhemoglobin 85.4 % (95.0-99.0) L 12/12/21 14:10 FiO2 21 % 12/12/21 14:10 Sodium 133 mmol/L (137-145) L 12/15/21 06:06 Potassium 4.8 mmol/L (3.6-5.0) 12/15/21 06:06 Chloride 100.0 mmol/L (98-107) 12/15/21 06:06 Carbon Dioxide 23 mmol/L (22-30) 12/15/21 06:06 Anion Gap 15 mmol/L 12/15/21 06:06 BUN 42 mg/dL (7-17) H 12/15/21 06:06 Creatinine 1.5 mg/dL (0.6-1.2) H 12/15/21 06:06 Estimated GFR 42 ml/min 12/15/21 06:06 BUN/Creatinine Ratio 28 % 12/15/21 06:06 Glucose 97 mg/dL (65-100) 12/15/21 06:06 POC Glucose 99 mg/dL (70-105) 12/15/21 07:37 Hemoglobin A1c 6.7 % (4-6) H 10/31/21 04:30 Lactic Acid 0.70 mmol/L (0.7-2.0) 10/31/21 15:45 Calcium 9.1 mg/dL (8.4-10.2) 12/15/21 06:06 Phosphorus 5.20 mg/dL (2.5-4.5) H 12/02/21 03:22 Magnesium 1.60 mg/dL (1.7-2.3) L 11/19/21 14:38 Ferritin 208.4 ng/mL (10.0-200.0) H 10/30/21 Unknown Total Bilirubin 0.40 mg/dL (0.1-1.2) 12/14/21 06:36 Direct Bilirubin < 0.2 mg/dL (0-0.2) 12/14/21 06:36 Indirect Bilirubin 0.2 mg/dL 12/14/21 06:36 AST 12 units/L (5-40) 12/14/21 06:36 ALT < 5 units/L (7-56) L 12/14/21 06:36 Alkaline Phosphatase 81 units/L (35-129) 12/14/21 06:36 Ammonia 31.0 umol/L (25-60) 10/29/21 15:10 Lactate Dehydrogenase 469 units/L (91-180) H 10/30/21 Unknown Troponin T 1.150 ng/mL (0.00-0.029) H* D 10/29/21 22:34 C-Reactive Protein 13.40 mg/dL (0.00-1.30) H 10/30/21 Unknown Total Protein 6.0 g/dL (6.3-8.2) L 12/14/21 06:36 Albumin 3.0 g/dL (3.9-5) L 12/14/21 06:36 Albumin/Globulin Ratio 1.0 % 12/14/21 06:36 Triglycerides 68 mg/dL (2-149) 10/29/21 19:40 Cholesterol 98 mg/dL (50-199) 10/29/21 19:40 LDL Cholesterol Direct 43 mg/dL (50-130) L 10/29/21 19:40 HDL Cholesterol 50 mg/dL (40-59) 10/29/21 19:40 Cholesterol/HDL Ratio 1.96 % 10/29/21 19:40 Procalcitonin 61.95 ng/mL (<0.15) 10/30/21 Unknown TSH 3.080 mlU/mL (0.270-4.200) 10/29/21 15:10 Urine Color Yellow (Yellow) 11/13/21 08:30 Urine Turbidity Slightly-cloudy (Clear) 11/13/21 08:30 Urine pH 6.0 (5.0-7.0) 11/13/21 08:30 Ur Specific [place] 1.010 (1.003-1.030) 11/13/21 08:30 Urine Protein <15 mg/dl mg/dL (Negative) 11/13/21 08:30 Urine Glucose (UA) Neg mg/dL (Negative) 11/13/21 08:30 Urine Ketones Tr mg/dL (Negative) 11/13/21 08:30 Urine Blood Sm (Negative) 11/13/21 08:30 Urine Nitrite Neg (Negative) 11/13/21 08:30 Urine Bilirubin Neg (Negative) 11/13/21 08:30 Urine Urobilinogen < 2.0 mg/dL (<2.0) 11/13/21 08:30 Ur Leukocyte Esterase Neg (Negative) 11/13/21 08:30 Urine WBC (Auto) < 1.0 /HPF (0.0-6.0) 11/13/21 08:30 Urine RBC (Auto) < 1.0 /HPF (0.0-6.0) 11/13/21 08:30 U Epithel Cells (Auto) < 1.0 /HPF (0-13.0) 11/13/21 08:30 Urine Mucus Few /HPF 10/29/21 18:15 Urine Eosinophils None seen (None Seen) 11/04/21 Unknown Urine Creatinine 190.9 mg/dL (0.1-20.0) H 11/04/21 Unknown Protein/Creatinin Ratio 0.90 11/04/21 Unknown Urine Sodium 10 mmol/L 11/04/21 Unknown Urine Total Protein 172 mg/dL (5-11.8) H 11/04/21 Unknown Salicylates < 0.3 mg/dL (2.8-20.0) L 10/29/21 15:10 Urine Opiates Screen Negative 10/29/21 18:15 Urine Methadone Screen Negative 10/29/21 18:15 Acetaminophen 5.0 ug/mL (10.0-30.0) L 10/29/21 15:10 Ur Barbiturates Screen Negative 10/29/21 18:15 Ur Phencyclidine Scrn Negative 10/29/21 18:15 Ur Amphetamines Screen Negative 10/29/21 18:15 U Benzodiazepines Scrn Negative 10/29/21 18:15 Urine Cocaine Screen Negative 10/29/21 18:15 U Marijuana (THC) Screen Negative 10/29/21 18:15 Drugs of Abuse Note Disclamer 10/29/21 18:15 Plasma/Serum Alcohol < 0.01 % (0-0.07) 10/29/21 15:10 Coronavirus (PCR) Negative (Negative) 10/30/21 Unknown Hepatitis A IgM Ab Non-reactive (NonReactive) 12/01/21 19:36 Hep Bs Antigen Non-reactive (Negative) 12/01/21 19:36 Hep B Core IgM Ab Non-reactive (NonReactive) 12/01/21 19:36 Hepatitis C Antibody Non-reactive (NonReactive) 12/01/21 19:36 Blood Type O POSITIVE 12/15/21 12:08 Antibody Screen Negative 12/15/21 12:08 Crossmatch See Detail 12/15/21 12:08 Krishna/IV: Voiding Method External Female Catheter Active Medications - Current Medications Current Medications: Generic Name Dose Route Start Last Admin Trade Name Freq PRN Reason Stop Dose Admin Acetaminophen 650 mg 10/29/21 17:04 11/12/21 22:53 Acetaminophen 650 Mg Rect Supp GA 650 mg Q6H PRN Administration Pain MILD(1-3)/Fever >100.5/NIEVES Acetaminophen 650 mg 11/19/21 16:35 12/12/21 15:55 Acetaminophen 325 Mg Tab PO 650 mg Q6HR PRN Administration PAIN Albumin Human 50 gm 12/02/21 11:00 12/15/21 13:00 Albumin Human 25% (25 Gm/100 Ml) Inj IV 50 gm ZACH PRN Administration Hypotension Alprazolam 0.25 mg 11/14/21 14:29 12/15/21 11:02 Alprazolam 0.25 Mg Tab PO 0.25 mg Q8H PRN Administration Anxiety Amiodarone HCl 200 mg 12/13/21 22:00 12/15/21 10:10 Amiodarone 200 Mg Tab PO 200 mg BID RAMON Administration Apixaban 5 mg 12/12/21 10:00 12/15/21 10:14 Apixaban 5 Mg Tab PO 5 mg Q12HR RAMON Administration Protocol Docusate Sodium 100 mg 11/18/21 15:00 12/15/21 10:16 Docusate Sodium 100 Mg Cap PO 100 mg BID RAMON Administration Epoetin Landon-epbx 10,000 unit 12/06/21 10:00 12/15/21 15:15 Epoetin [place]-Epbx 10,000 Unit/1 Ml Vial IV 10,000 unit ZACH PRN Administration hemodialysis Famotidine 10 mg 11/06/21 10:00 12/15/21 10:15 Famotidine 10 Mg Tab PO 10 mg BID RAMON Administration Gabapentin 100 mg 11/28/21 14:00 12/15/21 19:58 Gabapentin 100 Mg Cap PO 100 mg Q8HR RAMON Administration Hydrophilic Ointment 1 applic 10/29/21 14:29 11/09/21 08:51 Lip Therapy Vaseline TP 1 applic Q2HR PRN Administration Dry Lips Sodium Chloride 100 mls @ 999 mls/hr 12/01/21 14:44 Nacl 0.9% IV ZACH PRN Hypotension Sodium Chloride 500 mls @ 0 mls/hr 12/15/21 11:54 Nacl 0.9% 500 Ml IV ONCE RAMON As Directed Insulin Human Lispro 0 unit 11/25/21 22:00 12/15/21 18:22 Insulin Lispro 100 Unit/Ml SUB-Q Not Given ACHS [facility] Protocol Lactulose 20 gm 11/18/21 14:43 12/06/21 15:26 Lactulose 20 Gm/30 Ml Oral Liqd PO 20 gm Q6H PRN Administration Constipation Melatonin 10 mg 11/22/21 17:31 12/13/21 22:09 Melatonin 5 Mg Tab PO 10 mg QHS PRN Administration Sleep Metoprolol Tartrate 100 mg 12/07/21 11:00 12/15/21 10:38 Metoprolol Tartrate 50 Mg Tab PO Not Given BID RAMON Midodrine 10 mg 12/01/21 12:00 12/15/21 19:57 Midodrine 5 Mg Tab PO 10 mg TID@0800,1200,1600 [facility] Administration Morphine Sulfate 1 mg 11/28/21 15:00 12/10/21 16:34 Morphine 2 Mg/1 Ml Inj IV 1 mg Q4H PRN Administration Pain, Moderate (4-6) Multi-Ingred Cream/Lotion/Oil/Oint 1 applic 10/29/21 14:29 11/06/21 09:25 Mineral Oil/Petrolatum, White Ophth Oint 3.5 Gm OU 1 applic Q4HR PRN Administration Dry Eye(s) Oxycodone/Acetaminophen 1 tab 11/27/21 14:31 12/13/21 03:29 Oxycodone /Acetaminophen 5-325mg Tab PO 1 tab Q4H PRN Administration Pain, Moderate (4-6) Polyethylene Glycol 17 gm 11/20/21 12:47 12/08/21 09:54 Polyethylene Glycol 3350 17 Gm Powder PO 17 gm QDAY PRN Administration Constipation Senna/Docusate Sodium 1 tab 11/16/21 22:00 12/15/21 19:57 Sennosides/Docusate Sodium 8.6/50 Mg Tab PO 1 tab BID RAMON Administration Sodium Chloride 10 ml 10/29/21 22:00 12/15/21 10:17 Sodium Chloride 0.9% 10 Ml Flush Syringe IV 10 ml BID RAMON Administration Sodium Chloride 10 ml 10/29/21 17:04 Sodium Chloride 0.9% 10 Ml Flush Syringe IV PRN PRN LINE FLUSH Nutrition/Malnutrition Assess - Dietary Evaluation Nutrition/Malnutrition Findings: Nutrition Notes Start: 10/30/21 09:50 Freq: Status: Active Protocol: Document 12/14/21 17:12 MEENU (Rec: 12/14/21 17:44 MEENU [email or web address]) Nutrition Notes Initial or Follow up Reassessment Current Diagnosis Acute Kidney Injury,Sepsis, Hypertension,Respiratory Failure Other Pertinent Diagnosis s/p Cardiopulmonary Arrest, Anemia, SIERRA/CKD+HD prn, Pneumonia, Hyponatremia Current Diet Renal Diet (since B 12/14). Labs/Tests 12/14: Na 132, BUN 43, Crea 1. 9. Pertinent Medications 12/14: Albumin 50 gm, others nutritionally unremarkable. Height 5 ft 10 in Weight 117.6 kg [place] Body Weight (kg) 68.18 BMI 37.2 Weight change and time frame 2.8 Kg body weigh gain reported in 9 days. Weight Status Obese Subjective/Other Information RD consult for routine F/U on Dietary tolerance. No indication for Mechanical Soft diet found, I discontinued the indication, will assess at F/U. RN note 12/13: Assist with dinner. eat 40% of meal. Per MD, fluid restriction to 1 ,000 ml/day, according to Progress note. Percent of energy/protein needs met: Prescribed Renal Diet provides for energy/protein needs (2, 072 Kcal/77 g) during LOS. Burn Absent Trauma Absent GI Symptoms None Food Allergy No Skin Integrity/Comment Assessment WNL. Current % PO Poor (25-49%) Minimum of two criteria No #1 Nutrition Diagnosis Inadequate oral intake Comments: Pt's PO intake of meals has been at 40%, and well tolerated, according to RN notes. Diet advanced to Renal. Diagnosis Progress(for reassessment Continues documentation) Is patient on ventilator? No Is Patient Ambulatory and/or Out of Bed No REE-([facility]-confined to bed) 2154.516 Kcal/Kg value to use for calculation 14 Approximate Energy Requirements Using 1646 kcal/Kg Calculation Used for Recommendations Kcal/kg Additional Notes Protein: >1.2 g/Kg AdjBW; >110 g/day. Fluids: 1-1.5 L/day, or as per MD. Nutrition Intervention Change Diet Order: Resume Renal Diet. Add Supplement/Snack (indicate name/kcal 8 fl oz nepro w/CARBSTEADY; /protein ) BID. Provides kCal: 850 Provides Protein (gm) 38 Goal #1 Compensate, through dietary supplementation, for possible poor or insufficient PO intake of meals during LOS. Goal #2 Maintain body weight within +/ -3% of admission body weight during LOS. Follow-Up By: 12/21/21 Additional Comments Continue monitoring food tolerance, %PO intake of meals , and BM.
[2021-12-16] MEDS: GABAPENTIN 100 MG CAP PO SCH ×3 (05:39→23:01)
[2021-12-16] MEDS: INSULIN LISPRO 100 UNIT/ML SUB-Q SCH ×4 (07:45→23:02)
[2021-12-16 07:58] LABS: Calcium 9.3 mg/dL (8.4-10.2)
[2021-12-16] MEDS: MIDODRINE 5 MG TAB PO SCH ×3 (08:37→16:20)
[2021-12-16 08:57] LABS: Hematocrit 25.2 % (30.3-42.9); Hemoglobin 8.2 gm/dl (10.1-14.3); Mean Corpuscular HGB Conc 33 % (30-34); Mean Corpuscular Volume 93 fl (79-97); Platelet Count 227 K/mm3 (140-440); Red Blood Count 2.72 M/mm3 (3.65-5.03); Red Cell Distribution Width 19.3 % (13.2-15.2)
--- NOTE | 2021-12-16 09:20 | Progress Note ---
Assessment and Plan Acute Renal Failure secondary to Ischemic ATN secondary to Sepsis, Cardiac arrest and Hypotension S/P Cardiac Arrest Acute Hypoxemic Respiratory Failure Acute DVT Sepsis CHF Anemia Hyperkalemia Hyponatremia Plan: stable kidney function, UOP is increasing will check creatinine clearance again -pending patient can be discharged after permcath removal on Sunday no indication for HD today fluid restriction 1000 cc a day CHF-LVEF 25-30 % Anemia-On Epogen Obtain daily weights Strict I/O's daily Renally dose medications Avoid nephrotoxic agents Continue to monitor renal function closely Assess dialysis needs daily Subjective Date of service: 12/16/21 Principal diagnosis: AHRF; Cardiac arrest; R. pneumothorax; pneumonia; AMS; DVT's; SIERRA; Obesity Interval history: tolerated HD Objective - Vital Signs Vital signs: Vital Signs - 12hr 12/15/21 12/15/21 12/16/21 23:00 23:17 00:25 Temperature 98.6 F Pulse Rate 127 H Respiratory 20 Rate Blood Pressure 137/72 O2 Sat by Pulse 97 98 98 Oximetry 12/16/21 08:15 Temperature 97.8 F Pulse Rate 76 Respiratory 16 Rate Blood Pressure 120/81 O2 Sat by Pulse 100 Oximetry - Lab 12/17/21 05:59 12/17/21 05:59 Most recent lab results ABG pH 7.333 pH Units (7.350-7.450) L 12/12/21 14:10 ABG pCO2 50.1 mm Hg 12/12/21 14:10 ABG pO2 57.0 mm Hg (80.0-90.0) L 12/12/21 14:10 ABG HCO3 26.0 mmol/L (20.0-26.0) 12/12/21 14:10 ABG O2 Saturation 88.0 % (95.0-99.0) L 12/12/21 14:10 Calcium 9.3 mg/dL (8.4-10.2) 12/16/21 07:03 Phosphorus 5.20 mg/dL (2.5-4.5) H 12/02/21 03: Magnesium 1.60 mg/dL (1.7-2.3) L 11/19/21 14:38 Urine Creatinine 190.9 mg/dL (0.1-20.0) H 11/04/21 Unknown Urine Sodium 10 mmol/L 11/04/21 Unknown Urine Total Protein 172 mg/dL (5-11.8) H 11/04/21 Unknown Medications & Allergies - Medications Allergies/Adverse Reactions: Allergies No Known Allergies Allergy (Verified 10/29/21 14:01) Home Medications: Home Medications Medication Instructions Recorded Confirmed Last Taken Type Unobtainable 11/10/21 11/10/21 Unknown History Active Medications: Generic Name Dose Route Start Last Admin Trade Name Freq PRN Reason Stop Dose Admin Acetaminophen 650 mg 10/29/21 17:04 11/12/21 22:53 Acetaminophen [address] 650 mg Q6H PRN Administration Pain MILD(1-3)/Fever >100.5/NIEVES Acetaminophen 650 mg 11/19/21 16:35 12/12/21 15:55 Acetaminophen 325 Mg Tab PO 650 mg Q6HR PRN Administration PAIN Albumin Human 50 gm 12/02/21 11:00 12/15/21 13:00 Albumin Human 25% (25 Gm/100 Ml) Inj IV 50 gm ZACH PRN Administration Hypotension Alprazolam 0.25 mg 11/14/21 14:29 12/15/21 11:02 Alprazolam 0.25 Mg Tab PO 0.25 mg Q8H PRN Administration Anxiety Amiodarone HCl 200 mg 12/13/21 22:00 12/15/21 22:39 Amiodarone 200 Mg Tab PO 200 mg BID RAMON Administration Apixaban 5 mg 12/12/21 10:00 12/15/21 22:34 Apixaban 5 Mg Tab PO 5 mg Q12HR RAMON Administration Protocol Docusate Sodium 100 mg 11/18/21 15:00 12/15/21 22:34 Docusate Sodium 100 Mg Cap PO 100 mg BID RAMON Administration Epoetin [place]-epbx 10,000 unit 12/06/21 10:00 12/15/21 15:15 Epoetin [place]-Epbx 10,000 Unit/1 Ml Vial IV 10,000 unit ZACH PRN Administration hemodialysis Famotidine 10 mg 11/06/21 10:00 12/15/21 22:34 Famotidine 10 Mg Tab PO 10 mg BID RAMON Administration Gabapentin 100 mg 11/28/21 14:00 12/16/21 05:39 Gabapentin 100 Mg Cap PO 100 mg Q8HR RAMON Administration Hydrophilic Ointment 1 applic 10/29/21 14:29 11/09/21 08:51 Lip Therapy Vaseline TP 1 applic Q2HR PRN Administration Dry Lips Sodium Chloride 100 mls @ 999 mls/hr 12/01/21 14:44 Nacl 0.9% IV ZACH PRN Hypotension Sodium Chloride 500 mls @ 0 mls/hr 12/15/21 11:54 Nacl 0.9% 500 Ml IV ONCE [facility] As Directed Insulin Human Lispro 0 unit 11/25/21 22:00 12/16/21 07:45 Insulin Lispro 100 Unit/Ml SUB-Q Not Given ACHS [facility] Protocol Lactulose 20 gm 11/18/21 14:43 12/06/21 15:26 Lactulose 20 Gm/30 Ml Oral Liqd PO 20 gm Q6H PRN Administration Constipation Melatonin 10 mg 11/22/21 17:31 12/13/21 22:09 Melatonin 5 Mg Tab PO 10 mg QHS PRN Administration Sleep Metoprolol Tartrate 100 mg 12/07/21 11:00 12/15/21 22:35 Metoprolol Tartrate 50 Mg Tab PO 100 mg BID RAMON Administration Midodrine 10 mg 12/01/21 12:00 12/16/21 08:37 Midodrine 5 Mg Tab PO 10 mg TID@0800,1200,1600 [facility] Administration Morphine Sulfate 1 mg 11/28/21 15:00 12/10/21 16:34 Morphine 2 Mg/1 Ml Inj IV 1 mg Q4H PRN Administration Pain, Moderate (4-6) Multi-Ingred Cream/Lotion/Oil/Oint 1 applic 10/29/21 14:29 11/06/21 09:25 Mineral Oil/Petrolatum, White Ophth Oint 3.5 Gm OU 1 applic Q4HR PRN Administration Dry Eye(s) Oxycodone/Acetaminophen 1 tab 11/27/21 14:31 12/13/21 03:29 Oxycodone /Acetaminophen 5-325mg Tab PO 1 tab Q4H PRN Administration Pain, Moderate (4-6) Polyethylene Glycol 17 gm 11/20/21 12:47 12/08/21 09:54 Polyethylene Glycol 3350 17 Gm Powder PO 17 gm QDAY PRN Administration Constipation Senna/Docusate Sodium 1 tab 11/16/21 22:00 12/15/21 22:39 Sennosides/Docusate Sodium 8.6/50 Mg Tab PO 1 tab BID RAMON Administration Sodium Chloride 10 ml 10/29/21 22:00 12/15/21 22:36 Sodium Chloride 0.9% 10 Ml Flush Syringe IV 10 ml BID RAMON Administration Sodium Chloride 10 ml 10/29/21 17:04 Sodium Chloride 0.9% 10 Ml Flush Syringe IV PRN PRN LINE FLUSH
[2021-12-16] MEDS: METOPROLOL TARTRATE 50 MG TAB PO SCH ×2 (09:28→23:02)
[2021-12-16] MEDS: FAMOTIDINE 10 MG TAB PO SCH ×2 (09:28→23:01)
[2021-12-16] MEDS: DOCUSATE SODIUM 100 MG CAP PO SCH ×2 (09:28→23:02)
[2021-12-16] MEDS: SENNOSIDES/DOCUSATE SODIUM 8.6/50 MG TAB PO SCH ×2 (09:29→23:09)
[2021-12-16] MEDS: APIXABAN 5 MG TAB PO SCH ×2 (09:29→23:01)
[2021-12-16] MEDS: AMIODARONE 200 MG TAB PO SCH ×2 (09:32→23:01)
[2021-12-16] MEDS: MAGNESIUM HYDROXIDE (MOM) ORAL LIQD UDC PO PRN (11:11)
--- NOTE | 2021-12-16 12:55 | Progress Note ---
Assessment and Plan Patient is a 66-year-old female with unknown past medical history brought into the ED following outside of hospital cardiac arrest thought to be PEA with thought to have downtime of 7 to 9 minutes however details are unclear S/P PEA cardiopulmonary arrest- Acute hypoxic respiratory failure-pulm following Septic shock Bacteremia Pneumonia Acute renal failure on HD-nephrology following Atrial flutter w/ RVR Pneumothorax- s/p CT Acute bilateral DVT-on Eliquis Hypokalemia Transaminitis Retroperitoneal Hematoma s/p IVC Echo 10/30/2021-technically difficult study due to body habitus. EF 25 to 30%. Right ventricular systolic function is normal. No pericardial effusion Lexiscan MPI stress test 12/13/2021-technically difficult study but grossly normal stress MPI. EF of 37% Plan: Patient has been rate controlled on monitor. Continue metoprolol 100 mg p.o. twice daily a.m., amiodarone 200 mg p.o. twice daily LAYO/ARB on hold due to patient being unable to tolerate and having hypotension Volume management per nephrology due to end-stage renal disease on hemodialysis Patient currently anticoagulated on Eliquis Patient H&H improved today Patient wearing LifeVest Cardiac status otherwise stable. Will see as needed Patient should follow-up with our group, [facility] retail zone specialist, as an outpatient In 1 to 2 weeks after discharge. Phone #[phone] Patient seen in conjunction with Dr. Cueto who agrees with this plan of care - Patient Problems (1) Cardiopulmonary arrest Current Visit: Yes Status: Acute (2) Hypokalemia Current Visit: Yes Status: Acute (3) Transaminitis Current Visit: Yes Status: Acute (4) Aspiration pneumonia Current Visit: Yes Status: Acute (5) Acute hypoxemic respiratory failure Current Visit: Yes Status: Acute (6) Septic shock Current Visit: Yes Status: Acute (7) Toxic metabolic encephalopathy Current Visit: Yes Status: Acute (8) Shock liver Current Visit: Yes Status: Acute Subjective Date of service: 12/16/21 Principal diagnosis: AHRF; Cardiac arrest; R. pneumothorax; pneumonia; AMS; DVT's; SIERRA; Obesity Interval history: Patient resting in bed with family at bedside. Patient atrial flutter ate trending 70s-80s on monitor Objective Vital Signs Temp Pulse Resp BP Pulse Ox Pulse Ox 12/16/21 11:00 76 12/16/21 10:00 98 03/25/22 08:15 97.8 F 76 16 120/81 100 12/16/21 00:25 98 12/15/21 23:17 98 12/15/21 23:00 98.6 F 127 H 20 137/72 97 12/15/21 20:53 89 12/15/21 20:45 126 H 12/15/21 19:24 98.8 F 126 H 20 125/72 100 12/15/21 15:30 98.2 F 82 18 134/56 100 12/15/21 15:15 100 H 116/68 12/15/21 15:00 98 F 107 H 18 114/69 100 12/15/21 14:45 107 H 114/52 12/15/21 14:36 98.2 F 98 H 18 125/65 100 12/15/21 14:30 109 H 111/61 12/15/21 14:15 98 H 125/65 12/15/21 14:00 111 H 111/58 12/15/21 13:45 109 H 111/64 12/15/21 13:30 110 H 118/50 12/15/21 13:15 112 H 118/71 12/15/21 13:00 100 H 95/57 - Physical Examination General: No Apparent Distress HEENT: Positive: Normocephaly, Mucus Membranes Moist Neck: Positive: trachea midline. Negative: JVD/HJR Cardiac: Positive: irregularly irregular Lungs: Positive: Normal Breath Sounds Neuro: Positive: Grossly Intact Abdomen: Positive: Soft, Active Bowel Sounds Skin: Negative: Rash Musculoskeletal: No Pain Extremities: Present: upper extr. pulses, edema, warm - Labs and Meds CBC 12/16/21 Range/Units 08:44 WBC 11.7 H (4.5-11.0) K/mm3 RBC 2.72 L (3.65-5.03) M/mm3 Hgb 8.2 L (10.1-14.3) gm/dl Hct 25.2 L (30.3-42.9) % Plt Count 227 (140-440) K/mm3 Comprehensive Metabolic Panel 12/16/21 Range/Units 07:03 Sodium 134 L (137-145) mmol/L Potassium 5.0 (3.6-5.0) mmol/L Chloride 99.0 (98-107) mmol/L Carbon Dioxide 26 (22-30) mmol/L BUN 39 H (7-17) mg/dL Creatinine 1.5 H (0.6-1.2) mg/dL Glucose 104 H (65-100) mg/dL Calcium 9.3 (8.4-10.2) mg/dL - Imaging and Cardiology EKG: report reviewed, image reviewed Echo: report reviewed - Telemetry EKG Rhythm: Atrial Flutter - EKG Supraventricular dysrhythmia: atrial flutter Ventricular dysrhythmias: ventricular premature com Repolarization changes or abnormalities: nonspecific abnormality, ST segment, and/or T wave Myocardial infarction: septal MN (old age or ind - Allied health notes Allied health notes reviewed: nursing
--- NOTE | 2021-12-16 14:15 | Progress Note ---
Assessment and Plan Assessment and plan: 66 YO Female with Obesity was attending [facility] services when the patient collapsed and lost consciousness. Witnesses began CPR. EMS was notified and upon arrival the patient was found to be in distress without perfusing cardiac rhythm. Patient initiated on ACLS protocol and subsequently intubated in the field and transported to ED. The patient regained spontaneous circulation during transport. She was found to have acute hypoxemic respiratory failure, septic shock suspected secondary to aspiration pneumonia, metabolic acidosis, toxic metabolic encephalopathy, shock liver, and cardiac arrest with return of perfusing cardiac rhythm after initiation of ACLS protocol. Patient initiated on sepsis protocol as well as pneumonia protocol. Patient admitted to ICU. Patient improved, extubated on 11/11 and transferred to floor on 11/19. --Rectal bleeding this afternoon; Patient is on Eliquis, will hold Eliquis closely monitor H&H, Consult GI, transfuse PRBC as needed s/p cardiac arrest, collapse at [facility], HFrEF, shock/hypotension resolved Atrial fibrillation/atrial flutter -Cardiac arrest and collapse at [facility] with ROSC -Cardiology consulted, appreciate recommendations - S/p Cardizem gtt- d/c due to low EF; now on PO Amio -s/p vasopressor support with levophed -Echocardiogram shows left ventricular systolic function severely decreased, LVEF 25 to 30%, no pericardial effusion -proBNP 5622 -Continue Lasix 20 mg twice daily, BB, spironolactone, losartan -No significant volume overload clinically Acute hypoxic respiratory failure, right pneumothorax, Angioedema (resolved), pulmonary edema -[facility] consulted, appreciate recommendations -Intubated on 10/29 and extubated on 11/11 -Bipap q HS and prn, at high risk for KOLBY with morbid obesity -NC during day -s/p right chest tube for pneumothorax -s/p steroids for angioedema -On Lasix for pulmonary edema. Transaminitis likely shocked liver - resolved Acute kidney injury likely secondary to vasomotor nephropathy, hypernatremia -Nephrology consulted, appreciate recommendations -Krishna replaced 11/05 urinary retention -FeNa 0.05 indicating pre-renal -SIERRA and hyponatremia resolved. Creatinine 1.0 on Lasix IV Shock cardiogenicsuspected sepsis -Fever was as high as 102 with a leukocytosis Blood, urine and sputum cultures negative -COVID-19 PCR negative -S/p empiric antibiotic therapy for possible pneumonia with Rocephin and azith romycin () -S/p Levophed gtt for hypotension -Fever and leukocytosis resolved -Monitor WBC and temperature curve Acute Metabolic encephalopathy, agitation/anxiety -Etiology likely from a cardiac arrest, shock and cerebral hypoperfusion CT head no acute focal parenchymal lesion in the brain -Neurology consulted, appreciate recommendations -EEG and MRI noted, Neuro recommend to cut down on sedation as possible Mental status significantly improved, currently fairly alert and oriented. Answers appropriately. Acute DVT in the left posterior tibial vein and bilateral peroneal veins, Anemia, retroperitoneal bleed -D-dimer greater than 10,000 -CTA chest with no evidence of PE -Bilateral lower extremity ultrasound positive for DVT -Heparin gtt on hold d/t anemia, received PRBC x4 -vasuclar surgery consulted, appreciate recommendations -recommended multiphasic CT angio of the abdomen and pelvis with and without contrast if H/H drops and did not recommend IVC filter at this time as the DVTs are infrapopliteal and recommends a follow-up DVT study weekly for 2 weeks. Repeat venous duplex ultrasound on 11/21 showed progression of left peroneal DVT extending into popliteal vein. Vascular surgery completed IVC filter placement on 11/22. -Trend CBC -SCDs to BLE while in bed -Transfuse hemoglobin less than 7 -Monitor for signs of bleeding -Hemoglobin stable, 8.6 Hypertension, not able be controlled Increase losartan 200 mg daily and add hydralazine as needed. Hyperglycemia ,resolved) -Avoid hypoglycemia -Hbg A1C 6.7 -SSI and lantus q hs (titrate as needed) -Accu-Cheks q. 6 Morbid obesity High risk for KOLBY On nightly BiPAP Deconditioning PT/OT Hospital Course to Date: 10/30: Intubated and sedated, on fentanyl gtt. Open eyes spontaneously but does not follow any commands. On vasopressors, titrate as tolerated for MAP above 65. Patient febrile overnight, continue empiric IV Abx, culture data and COVID PCR pending. Patient is also s/p CT placement due to spontaneous pneumothorax. 2D echo is pending and Cardiology is consulted. 10/31: Patient remains intubated and following commands. Levophed drip stopped and potassium repleted. Patient started on tube feeding. Remains in soft bilateral restraints. 11/01: RN noted ST changes on BSM and 12 lead EKG obtained which showed ST. Given Ativan 1mg for agitation as she is maxed on fentanyl drip and IV push fentanyl did not seem to help. Patient was started on CPAP this morning by RT but rem ained on fentanyl drip and was having periods of apnea. Plan was to retry CPAP again in the p.m. with sedation off. 11/02: Rate increased r/t hypercapnea on ABG, sedation reduced. Given kionex for hyperkalemia and was started on levophed overnight for hypotension. 11/03: Overnight patient had tachycardia and was given Cardizem and Lopressor. Lopressor was repeated in the a.m. due to tachycardia. Patient will be started on amiodarone with a bolus per cardiology. Patient started on normal saline per liter per [facility] and steroids for angioedema. Noted to have bright red blood when suctioned from oh ETT. Remains on heparin drip as H/H is stable for now. Will reevaluate. Fentanyl drip was restarted last night due to agitation. Dr. Flores updated family today 11/04: Patient was sedated on fentanyl however off sedation is able to follow commands, a.m. labs completed in the p.m. and show hyperkalemia with increased renal function studies. Nephrology, neurology consulted by [facility]. Given Ka yexalate, insulin and D50 for hyperkalemia. Patient remains on amiodarone. 11/05: Patient needed to be sedated on fentanyl again to today. overnight krishna was replaced. Hyperkalemia->given kionex 60 for 5.6. Repeat K 6-> Dr. Grant informed and requested bumex, kionex, insulin, d50, calcium gluconate and sodium bicarb with repeat BMP in 2 hours which were placed. HR remains elevated. 11/06: Patient remained in atrial fibrillation/atrial flutter with heart rate in the 150s despite being on amnio drip and was given amnio bolus, Cardizem bolus and started on Cardizem drip by cardiology. Patient is on beta-blockers p.o. scheduled and to feedings changed to Nepro. Kayexalate was given in the morning by nephrology due to hyperkalemia. 11/07: Patient is only responsive to mild stimuli, precedex added in an attempt to wean off fentanyl gtt to better assess her mental status. Neurology also on consult, pending MRI and EEG. Patient remains in Aflutter this am, HR in the 80 to 90s, still on amiodarone and heparin gtt. 11/08: Fentanyl gtt is off, only on precedex gtt. Patient is still not following any commands. MRI brain and EEG completed. Neuro recommendations noted, sedatives agents decreased. FWF added for hypernatremia and low K repleted, repeat labs ordered. Placed a call and spoke with patient's daughter, Eva Brown . She was updated on patient's conditions and status. All questions and concerns were voiced at this time. 11/09: Patient is awake and alert this am, following commands and appropriate. Remains on precedex gtt, plan for possible PST today. Hypertensive overnight, meds adjusted by Cardio and PRN Hydralazine added for SBP greater than 160. CT dislodged overnight, CXR is stable with no significant change. F/U CXR in the am. Patient's daughter, Eva Brown, visited with patient. She was updated on patient's status and goal of care for today. All questions and concerns were voiced at this time. 11/10: Mentation remains intact, still on precedex gtt. This am CXR noted still with fluid overload s/p X1 dose of IV lasix, good response from IV lasix overnight. Hypernatremia improved, D5W d/dayday. Still with persistent hypokalemia, continue electrolytes replacement and frequent lab check. Daily IV lasix and aldactone added by Cardio. Patient is also with persistent low grade fevers overnight, leukocytosis with mild improvement this am. Will get a repeat sputum culture, hold off on IV abx for now. Consider ID consult if fevers and leukocytosis persist. Patient tolerated PST X4hrs yesterday. PST again today, plan to wean to extubate if tolerated. 11/11: IAM overnight. Off precedex gtt and tolerated PST this am. Plan to wean to extubate today. Additional IV lasix given, plan to keep patient at a net negative balance for better lung compliance. F/U CXR in the am. K improved this am, repeat BMP this afternoon since diuresing. Remains with low grade fevers, leukocytosis downtrending, will continue to monitor. Speech/PT/OT ordered 11/12: S/p extubation, now stable on 3L NC. This am CXR noted with no significant changes, lasix changed to IV X4days BID. Drop in H&H this am, and Lt. flank ecchymosis noted. Heparin gtt on hold for now and orders placed for 1 unit of PRBCs and Ct Abd/Pelvis w/o con to r/o retroperitoneal bleed. Pending speech swallow eval, keep patient NPO for now. Patient is stable for IMCU status 11/13: Patient with increased WOB and tachycardia this am, patient was placed on Bipap and precedex gtt was resumed. CXR with mild improvement. CT Abd/Pelvis also reviewed large hematomas noted at the Lt. retroperitoneum and left posterior lateral abdominal wall. Heparin gtt is already on hold, patient is hemodynamically stable. Vascular Surgery consulted for possible IVC filter eval. Patient s/p 2units of PRBCs, will continue to trend H&H and transfuse if hbg is less than 7. Worsening renal function this am, IF diuretic on hold for now. Patient is also febrile with spike in wbcs most likely reactive to bleed, will panculture and hold off on IV Abx for now. Patient also failed speech bedside swallow eval yesterday, NGT in placed plan to resume enteral nutrition 11/14: Patient had bilateral lower extremity Doppler ultrasound and vascular surgery has recommended multiphasic CT angio of the abdomen and pelvis with and without contrast if H/H drops and does not recommend IVC filter at this time as the DVTs are infrapopliteal and recommends a DVT study weekly for 2 weeks. FWF 250 q4 ml per nephro. Started on as needed Xanax and p.o. amiodarone. She did not pass her ST evaluation today. Will be transferred to IM. 11/15: Resting comfortably on encounter. Speech cleared for pureed diet. Remains on 3l satting 98 % on bedside encounter. Does not appear to be in respiratory distress. Will continue to hold AC, No ivc filter planned at this time. qweekly doppler to monitor for migration of DVT per vascular. If demonstrated, will consider IVC filter. CBC ordered for tomorrow, will continue monitoring in light of retroperitoneal hematoma. FWF increased by nephrology to 350cc q4hr d/t hypernatremia. UOP/renal function both improved. D/w cardiology, will continue amiodorone an additional 24hrs. Plan to change dosing of metoprolol. Continue to wean off of precedex. Continue xanax scheduled for anxiety. physical therapy recs noted, fernanda / ltac will discuss with CM. Continue IMCU monitoring. 11/16: Pulmonary congestion this AM. CXR ordered. Lasix 40 mg IV x 1 order this AM. Will monitor for 24 hrs. potential downgrade to medical floor tomorrow. 11/17: Persisting pulmonary congestion, was on bipap overnight into this AM. Will order additional lasix 40 mg IV x 2. CXR ordered for AM. Possible downgrade to floor tomorrow. Anticipate d/c sunday. 11/18: Patient seen and examined, continue weaning, will continue diuresis BID, discussed with daughter. 11/19: Patient seen and examined this morning doing well no acute distress noted. Lasix was increased to twice daily to 20 mg IV. Clinically improving. Patient will be transferred to telemetry today can be switched to Lasix p.o. twice daily in a.m. She has her weekly Doppler of lower extremity tomorrow vascular is following for this. She was taken off anticoagulation secondary to retrop eritoneal bleed., The anticoagulation was started initially for atrial fibrillation and an infrapopliteal DVT. During her hospital stay she had a prolonged ventilator management and was successfully weaned off. She also received a total of 4 units of packed red blood cell. Hemoglobin has remained stable. Anticipate discharge in next 48 hours if continues to clinically stay stable. : Transferred from ICU on 11/19. Progressive improving. Currently awake and oriented. O2 weaned to 4 L. Hemodynamically stable. BP control being optimized. MiraLAX for constipation. Hemoglobin stable on the heparin infusion, being monitored closely with history of retroperitoneal bleed. 11/21: Patient remains mostly bedridden. She is awake and oriented on 2 L of O2. Repeat ultrasound showed extension of left peroneal DVT into popliteal vein. Heparin was discontinued for significant retroperitoneal bleed and off anticoagulation since. Vascular surgery plan for placement of IVC filter tomor row. Patient is chest pains, palpitations, hemoptysis. She has some cough. Left lower extremity pain likely from DVT better today. Discussed with the patient, nursing staff and vascular surgery. 11/22: The infrapopliteal vein thrombosis has propagated to the left popliteal vein. Vascular surgery to perform IVC filter placement today. 11/23: Vascular surgery placed IVC filter yesterday. Continue metoprolol 100 mg p.o. twice daily, Aldactone 25 mg p.o. daily and losartan 25 mg p.o. daily. Pa milton still requiring BiPAP (IPAP18, EPAP8) with FiO2 of 30%. Continue to wean oxygen per pulmonary recommendations. Nurse reports patient is having vaginal bleeding. We will check serial CBC and pelvic ultrasound 11/24: I discussed with cardiology yesterday the need for a LifeVest. LifeVest is ordered and pending. Patient is s/p IVC filter placement. Continue metoprolol 100 mg p.o. twice daily, Aldactone 25 mg p.o. daily and losartan 25 mg p.o. daily. Patient still requiring BiPAP (IPAP18, EPAP8) with FiO2 of 30%. Continue to wean oxygen per pulmonary recommendations. No further reports of vaginal bleeding. Pelvic ultrasound negative 11/25: Awaiting for LifeVest. Patient is s/p IVC filter placement. Continue metoprolol 100 mg p.o. twice daily, Aldactone 25 mg p.o. daily and losartan 25 mg p.o. daily. Patient still requiring BiPAP (IPAP18, EPAP8) with FiO2 of 30%. Continue to wean oxygen per pulmonary recommendations. 11/26: Physical therapy recommends subacute rehab. Still awaiting LifeVest. Patient is s/p IVC filter placement. Continue metoprolol 100 mg p.o. twice daily, Aldactone 25 mg p.o. daily and losartan 25 mg p.o. daily. Patient still requiring BiPAP (IPAP18, EPAP8) with FiO2 of 30% at night. Continue to wean oxygen per pulmonary recommendations. Patient currently with 2 L O2. 11/27: Physical therapy recommends subacute rehab. Patient has a LifeVest. Patient's left lower extremity pain likely related to DVT. Continue pain control. Continue metoprolol 100 mg p.o. twice daily, Aldactone 25 mg p.o. daily and losartan 25 mg p.o. daily. Patient still requiring BiPAP (IPAP18, EPAP8) with FiO2 of 30% at night. 11/28: Physical therapy recommends subacute rehab. Patient has a LifeVest. Patient continues to complain of left lower extremity pain which makes it very difficult for ambulation. Continue Percocet for pain control. Add neurontin for possible neuropathy. Etiology is likely secondary to DVT. Continue metoprolol 100 mg p.o. twice daily, Aldactone 25 mg p.o. daily and losartan 25 mg p.o. daily. Patient still requiring BiPAP (IPAP18, EPAP8) with FiO2 of 30% at night. Repeated Doppler US of LLE and will ask vascular surgery to revisit. 11/29; worsening lower extremity DVTs, vascular following, on heparin drip 11/30; low-grade fever, leukocytosis, shortness of breath, chest x-ray possible left-sided pneumonia/possible healthcare associated pneumonia Blood cultures already sent, empiric antibiotic cefepime[renal dose confirmed with pharmacist] ID consult if needed 12/01; gram-positive bacteremia preliminary, add vancomycin 1 dose, repeat cultures, consult ID Worsening renal function, nephrology initiated hemodialysis today, patient is critically ill, very poor prognosis, with multiple comorbidities And critical issues. Money Manager recommendations noted and appreciated 12/02; Gram positive bacteremia/possible HCAP and sepsis, on cefepime and 1 dose Vanco. Nephrology initiated hemodialysis, ID consult. Patient is hypotensive, pulmonary critical recommended transfer to ICU and start vasopressors for close observation overnight. Dr. Padron discussed with patient's daughter over patient's telephone and discussed in detail patient's condition, new developments sepsis, renal failure on hemodialysis anticoagulation for DVT and severe cardiomyopathy, also discussed poor prognosis, and the plans of transfe rring the patient to ICU for close observation. Many questions, and answered all of them. dr. Padron also discussed with granddaughter at the bedside and patient was moved to ICU, She had numerous questions answered all of them and discussed the current condition prognosis and treatment plan. She verbalized understanding 12/03: Patient was transferred to ICU yesterday evening for hypotension however she did not need to be started on any vasopressin therapy. Patient is on p.o. midodrine and all her antihypertensives have been held. She also received albumin bolus. Patient will be transferred to the floor today. Still complains of bilateral lower extremity pain. Patient is on cefepime and she is scheduled for dialysis today. 12/04: Some complaint of leg pain. Percocet given for pain control. Patient is very deconditioned, will need aggressive PT. Will work on d/c planning with cm. 12/05: Patient does not appear to be in distress this AM. tachycardic hr on encounter and overnight, was given diltiazem by medical records tech. Cardiology initiated metoprolol and amiodorone on patient this morning. She denies any pain except for discomfort in left lower extremity. Controlled with percocet. She also states that she does not have any urine output and has been constipated. Will order bowel regimen. Discharge needs discussed with CM which include Lifevest, BIPAP for nightly use, and possible set up for dialysis. She was visiting on a visa to the from [place] however is technically a citizen of [place] which makes placement a continued challenge. 12/06: Case management reports patient will need LifeVest, walker, CPAP and arrangements for outpatient hemodialysis. However, patient is uninsured. I discussed with the daughter Eva plans for home hospice. Eva reports that she is willing to have hospice to obtain additional resources but is not wanting palliative care/comfort measures. 12/07: Awaiting LifeVest and outpatient HD arrangements. I d/w CM discharge planning. Pt still with heparin drip but amiodarone changed to p.o. 200mg BID. Cont. Metoprolol 50mg BID. Hold LAYO and ARB for renal fxn. Patient for outpatient ischemic evaluation per Cardiology. Leukocytosis likely related to retroperitoneal hematoma. ID wants to monitor off abx. 12/08: Awaiting LifeVest and outpatient HD arrangements. I d/w CM discharge planning. Pt still with heparin drip. Await cardiology recommendations to transition to p.o. anticoagulation. Patient for outpatient ischemic evaluation per Cardiology. Leukocytosis likely related to retroperitoneal hematoma. Continue to monitor off antibiotics. Continue volume management per nephrology with hemodialysis 12/09: Patient with PermCath placement today. Nephrology reports patient hypotensive during hemodialysis and started 10 mg of midodrine for hypotension. Losartan discontinued. Continue to obtain daily weights and Strict I/O's. Renally dose medications and avoid nephrotoxic agents. Patient for outpatient ischemic evaluation per Cardiology. Leukocytosis likely related to retroperitoneal hematoma. Continue to monitor off antibiotics. Awaiting LifeVest and outpatient HD arrangements. 12/10: Continue hemodialysis per nephrology recommendations. We will discontinue heparin drip and start Eliquis 5 mg p.o. twice daily for anticoagulation. Blood pressure appears to be improved. Continue midodrine. Continue to obtain daily weights and Strict I/O's. Renally dose medications and avoid nephrotoxic age nts. Patient for outpatient ischemic evaluation per Cardiology. Leukocytosis likely related to retroperitoneal hematoma. Continue to monitor off antibiotics. Awaiting LifeVest and outpatient HD arrangements. 12/11: Cardiology plans for Lexiscan in a.m. Continue hemodialysis per nephrology recommendations. We will discontinue heparin drip and start Eliquis 5 mg p.o. twice daily for anticoagulation. Blood pressure appears to be improved. Continue midodrine. Continue to obtain daily weights and Strict I/O's. Renally dose medications and avoid nephrotoxic agents. 12/12: Lexiscan this morning per cardiology. Continue hemodialysis per nephrology recommendations. Continue Eliquis for anticoagulation. Continue midodrine. Continue to obtain daily weights and Strict I/O's. Renally dose medications and avoid nephrotoxic agents. 12/14; Lexiscan test yesterday was negative for ischemia, patient receiving physical therapy, hemodialysis DC planning per case management. Hospice placement, multiple social issues 3;24; received 1 unit PRBC transfusion as patient has anemia with hemoglobin of 6.9 follow H&H and transfuse additional PRBC as needed DC planning per case management 3;25; patient had episode of rectal bleeding/melena this afternoon, patient received 1 unit PRBC yesterday for hemoglobin of 6.9 which improved to 8.2 Closely monitor H&H and transfuse additional PRBC as needed, GI consulted[discussed with Dr. Austyn Saleh] Hold Eliquis, I discussed in detail with the patient and her daughter about her recent benefits and consequences of holding Eliquis in the setting of DVT and A. fib due to severe bleeding, they verbalized understanding, patient does not have new episodes of bleeding we will resume Eliquis and closely monitor History Interval history: I seen and examined the patient this afternoon patient's chart and medications reviewed, patient had a melena /rectal bleeding Patient is on Eliquis for DVT and A. fib. Hold Eliquis Patient denies nausea vomiting or hematemesis Patient received 1 unit of PRBC transfusion yesterday for anemia And her Hb improved to 8.2 Vital signs are noted Hospitalist Physical - Constitutional Vitals: Temp Pulse Resp BP Pulse Ox 97.8 F 76 16 120/81 98 12/16/21 08:15 12/16/21 11:00 12/16/21 08:15 12/16/21 08:15 12/16/21 10:00 General appearance: Present: no acute distress, well-nourished, obese (Morbidly obese), other (Minimally communicative) - EENT Eyes: Present: PERRL, EOM intact - Neck Neck: Present: supple, normal ROM - Respiratory Respiratory effort: normal Respiratory: bilateral: diminished, rales, negative: rhonchi, wheezing - Cardiovascular Rhythm: regular Heart Sounds: Present: S1 & S2 - Extremities Extremities: no ischemia, No edema - Abdominal General gastrointestinal: soft, non-tender, non-distended, normal bowel sounds - Integumentary Integumentary: Present: clear, warm - Psychiatric Psychiatric: appropriate mood/affect, cooperative - Neurologic Neurologic: CNII-XII intact, moves all extremities HEART Score - HEART Score Troponin: Troponin T 1.150 ng/mL (0.00-0.029) H* D 10/29/21 22:34 Results - Labs CBC & Chem 7: 12/16/21 08:44 12/16/21 07:03 Labs: Laboratory Last Values WBC 11.7 K/mm3 (4.5-11.0) H 12/16/21 08:44 RBC 2.72 M/mm3 (3.65-5.03) L 12/16/21 08:44 Hgb 8.2 gm/dl (10.1-14.3) L 12/16/21 08:44 Hct 25.2 % (30.3-42.9) L 12/16/21 08:44 MCV 93 fl (79-97) 12/16/21 08:44 MCH 30 pg (28-32) 12/16/21 08:44 MCHC 33 % (30-34) 12/16/21 08:44 RDW 19.3 % (13.2-15.2) H 12/16/21 08:44 Plt Count 227 K/mm3 (140-440) 12/16/21 08:44 Lymph % (Auto) 11.1 % (13.4-35.0) L 11/29/21 13:51 Roberts % (Auto) 15.5 % (0.0-7.3) H 11/29/21 13:51 Eos % (Auto) 1.0 % (0.0-4.3) 11/29/21 13:51 Baso % (Auto) 0.6 % (0.0-1.8) 11/29/21 13:51 Lymph # (Auto) 1.4 K/mm3 (1.2-5.4) 11/29/21 13:51 Roberts # (Auto) 2.0 K/mm3 (0.0-0.8) H 11/29/21 13:51 Eos # (Auto) 0.1 K/mm3 (0.0-0.4) 11/29/21 13:51 Baso # (Auto) 0.1 K/mm3 (0.0-0.1) 11/29/21 13:51 Add Manual Diff Complete 12/10/21 05:22 Total Counted 100 12/10/21 05:22 Seg Neutrophils % 71.8 % (40.0-70.0) H 11/29/21 13:51 Seg Neuts % (Manual) 73.0 % (40.0-70.0) H 12/10/21 05:22 Band Neutrophils % 12.0 % 12/10/21 05:22 Lymphocytes % (Manual) 7.0 % (13.4-35.0) L 12/10/21 05:22 Reactive Lymphs % (Man) 0 % 12/10/21 05:22 Monocytes % (Manual) 1.0 % (0.0-7.3) 12/10/21 05:22 Eosinophils % (Manual) 1.0 % (0.0-4.3) 12/10/21 05:22 Basophils % (Manual) 2.0 % (0.0-1.8) H 12/10/21 05:22 Metamyelocytes % 0 % 12/10/21 05:22 Myelocytes % 4.0 % 12/10/21 05:22 Promyelocytes % 0 % 12/10/21 05:22 Blast Cells % 0 % 12/10/21 05:22 Nucleated RBC % 1.0 % (0.0-0.9) H 12/10/21 05:22 Seg Neutrophils # 9.3 K/mm3 (1.8-7.7) H 11/29/21 13:51 Seg Neutrophils # Man 10.6 K/mm3 (1.8-7.7) H 12/10/21 05:22 Band Neutrophils # 1.7 K/mm3 12/10/21 05:22 Lymphocytes # (Manual) 1.0 K/mm3 (1.2-5.4) L 12/10/21 05:22 Abs React Lymphs (Man) 0.0 K/mm3 12/10/21 05:22 Monocytes # (Manual) 0.1 K/mm3 (0.0-0.8) 12/10/21 05:22 Eosinophils # (Manual) 0.1 K/mm3 (0.0-0.4) 12/10/21 05:22 Basophils # (Manual) 0.3 K/mm3 (0.0-0.1) H 12/10/21 05:22 Metamyelocytes # 0.0 K/mm3 12/10/21 05:22 Myelocytes # 0.6 K/mm3 12/10/21 05:22 Promyelocytes # 0.0 K/mm3 12/10/21 05:22 Blast Cells # 0.0 K/mm3 12/10/21 05:22 WBC Morphology Not Reportable 12/10/21 05:22 Hypersegmented Neuts Not Reportable 12/10/21 05:22 Hyposegmented Neuts Not Reportable 12/10/21 05:22 Hypogranular Neuts Not Reportable 12/10/21 05:22 Smudge Cells Not Reportable 12/10/21 05:22 Toxic Granulation Not Reportable 12/10/21 05:22 Toxic Vacuolation Not Reportable 12/10/21 05:22 Dohle Bodies Not Reportable 12/10/21 05:22 Pelger-Huet Anomaly Not Reportable 12/10/21 05:22 Manny Rods Not Reportable 12/10/21 05:22 Platelet Estimate Consistent w auto 12/10/21 05:22 Clumped Platelets Not Reportable 12/10/21 05:22 Plt Clumps, EDTA Not Reportable 12/10/21 05:22 Large Platelets Not Reportable 12/10/21 05:22 Giant Platelets Not Reportable 12/10/21 05:22 Platelet Satelliting Not Reportable 12/10/21 05:22 Plt Morphology Comment Not Reportable 12/10/21 05:22 RBC Morphology Not Reportable 12/10/21 05:22 Dimorphic RBCs Not Reportable 12/10/21 05:22 Polychromasia Not Reportable 12/10/21 05:22 Hypochromasia 1+ 12/10/21 05:22 Poikilocytosis Not Reportable 12/10/21 05:22 Anisocytosis 1+ 12/10/21 05:22 Microcytosis Not Reportable 12/10/21 05:22 Macrocytosis Not Reportable 12/10/21 05:22 Spherocytes Not Reportable 12/10/21 05:22 Pappenheimer Bodies Not Reportable 12/10/21 05:22 Sickle Cells Not Reportable 12/10/21 05:22 Target Cells Not Reportable 12/10/21 05:22 Tear Drop Cells Not Reportable 12/10/21 05:22 Ovalocytes Not Reportable 12/10/21 05:22 Helmet Cells Not Reportable 12/10/21 05:22 [place] Bodies Not Reportable 12/10/21 05:22 [place] Rings Not Reportable 12/10/21 05:22 [place] Cells Not Reportable 12/10/21 05:22 Bite Cells Not Reportable 12/10/21 05:22 Crenated Cell Not Reportable 12/10/21 05:22 Elliptocytes Not Reportable 12/10/21 05:22 Acanthocytes (Spur) Not Reportable 12/10/21 05:22 Rouleaux Not Reportable 12/10/21 05:22 Hemoglobin C Crystals Not Reportable 12/10/21 05:22 Schistocytes Not Reportable 12/10/21 05:22 Malaria parasites Not Reportable 12/10/21 05:22 Magdy Bodies Not Reportable 12/10/21 05:22 Hem Pathologist Commnt No 12/10/21 05:22 PT 13.4 Sec. (12.2-14.9) 12/11/21 13:08 INR 0.92 (0.87-1.13) 12/11/21 13:08 APTT 116.8 Sec. (24.2-36.6) H* 12/11/21 13:08 D-Dimer > 43698 ng/mlDDU (0-234) H 10/30/21 Unknown Heparin Anti-Xa Level Cancelled 12/11/21 13:08 ABG pH 7.333 pH Units (7.350-7.450) L 12/12/21 14:10 ABG pCO2 50.1 mm Hg 12/12/21 14:10 ABG pO2 57.0 mm Hg (80.0-90.0) L 12/12/21 14:10 ABG HCO3 26.0 mmol/L (20.0-26.0) 12/12/21 14:10 ABG O2 Saturation 88.0 % (95.0-99.0) L 12/12/21 14:10 ABG O2 Content 9.1 (0.0-44) 12/12/21 14:10 ABG Base Excess 0.0 mmol/L (-2.0-3.0) 12/12/21 14:10 ABG Hemoglobin 7.6 gm/dl (12.0-16.0) L 12/12/21 14:10 ABG Carboxyhemoglobin 2.2 % (0.0-5.0) 12/12/21 14:10 ABG Methemoglobin 0.7 % (0.0-1.5) 12/12/21 14:10 Oxyhemoglobin 85.4 % (95.0-99.0) L 12/12/21 14:10 FiO2 21 % 12/12/21 14:10 Sodium 134 mmol/L (137-145) L 12/16/21 07:03 Potassium 5.0 mmol/L (3.6-5.0) 12/16/21 07:03 Chloride 99.0 mmol/L (98-107) 12/16/21 07:03 Carbon Dioxide 26 mmol/L (22-30) 12/16/21 07:03 Anion Gap 14 mmol/L 12/16/21 07:03 BUN 39 mg/dL (7-17) H 12/16/21 07:03 Creatinine 1.5 mg/dL (0.6-1.2) H 12/16/21 07:03 Estimated GFR 42 ml/min 12/16/21 07:03 BUN/Creatinine Ratio 26 % 12/16/21 07:03 Glucose 104 mg/dL (65-100) H 12/16/21 07:03 POC Glucose 146 mg/dL (70-105) H 12/15/21 21:05 Hemoglobin A1c 6.7 % (4-6) H 10/31/21 04:30 Lactic Acid 0.70 mmol/L (0.7-2.0) 10/31/21 15:45 Calcium 9.3 mg/dL (8.4-10.2) 12/16/21 07:03 Phosphorus 5.20 mg/dL (2.5-4.5) H 12/02/21 03:22 Magnesium 1.60 mg/dL (1.7-2.3) L 11/19/21 14:38 Ferritin 208.4 ng/mL (10.0-200.0) H 10/30/21 Unknown Total Bilirubin 0.40 mg/dL (0.1-1.2) 12/14/21 06:36 Direct Bilirubin < 0.2 mg/dL (0-0.2) 12/14/21 06:36 Indirect Bilirubin 0.2 mg/dL 12/14/21 06:36 AST 12 units/L (5-40) 12/14/21 06:36 ALT < 5 units/L (7-56) L 12/14/21 06:36 Alkaline Phosphatase 81 units/L (35-129) 12/14/21 06:36 Ammonia 31.0 umol/L (25-60) 10/29/21 15:10 Lactate Dehydrogenase 469 units/L (91-180) H 10/30/21 Unknown Troponin T 1.150 ng/mL (0.00-0.029) H* D 10/29/21 22:34 C-Reactive Protein 13.40 mg/dL (0.00-1.30) H 10/30/21 Unknown Total Protein 6.0 g/dL (6.3-8.2) L 12/14/21 06:36 Albumin 3.0 g/dL (3.9-5) L 12/14/21 06:36 Albumin/Globulin Ratio 1.0 % 12/14/21 06:36 Triglycerides 68 mg/dL (2-149) 10/29/21 19:40 Cholesterol 98 mg/dL (50-199) 10/29/21 19:40 LDL Cholesterol Direct 43 mg/dL (50-130) L 10/29/21 19:40 HDL Cholesterol 50 mg/dL (40-59) 10/29/21 19:40 Cholesterol/HDL Ratio 1.96 % 10/29/21 19:40 Procalcitonin 61.95 ng/mL (<0.15) 10/30/21 Unknown TSH 3.080 mlU/mL (0.270-4.200) 10/29/21 15:10 Urine Color Yellow (Yellow) 11/13/21 08:30 Urine Turbidity Slightly-cloudy (Clear) 11/13/21 08:30 Urine pH 6.0 (5.0-7.0) 11/13/21 08:30 Ur Specific [place] 1.010 (1.003-1.030) 11/13/21 08:30 Urine Protein <15 mg/dl mg/dL (Negative) 11/13/21 08:30 Urine Glucose (UA) Neg mg/dL (Negative) 11/13/21 08:30 Urine Ketones Tr mg/dL (Negative) 11/13/21 08:30 Urine Blood Sm (Negative) 11/13/21 08:30 Urine Nitrite Neg (Negative) 11/13/21 08:30 Urine Bilirubin Neg (Negative) 11/13/21 08:30 Urine Urobilinogen < 2.0 mg/dL (<2.0) 11/13/21 08:30 Ur Leukocyte Esterase Neg (Negative) 11/13/21 08:30 Urine WBC (Auto) < 1.0 /HPF (0.0-6.0) 11/13/21 08:30 Urine RBC (Auto) < 1.0 /HPF (0.0-6.0) 11/13/21 08:30 U Epithel Cells (Auto) < 1.0 /HPF (0-13.0) 11/13/21 08:30 Urine Mucus Few /HPF 10/29/21 18:15 Urine Eosinophils None seen (None Seen) 11/04/21 Unknown Urine Creatinine 190.9 mg/dL (0.1-20.0) H 11/04/21 Unknown Protein/Creatinin Ratio 0.90 11/04/21 Unknown Urine Sodium 10 mmol/L 11/04/21 Unknown Urine Total Protein 172 mg/dL (5-11.8) H 11/04/21 Unknown Salicylates < 0.3 mg/dL (2.8-20.0) L 10/29/21 15:10 Urine Opiates Screen Negative 10/29/21 18:15 Urine Methadone Screen Negative 10/29/21 18:15 Acetaminophen 5.0 ug/mL (10.0-30.0) L 10/29/21 15:10 Ur Barbiturates Screen Negative 10/29/21 18:15 Ur Phencyclidine Scrn Negative 10/29/21 18:15 Ur Amphetamines Screen Negative 10/29/21 18:15 U Benzodiazepines Scrn Negative 10/29/21 18:15 Urine Cocaine Screen Negative 10/29/21 18:15 U Marijuana (THC) Screen Negative 10/29/21 18:15 Drugs of Abuse Note Disclamer 10/29/21 18:15 Plasma/Serum Alcohol < 0.01 % (0-0.07) 10/29/21 15:10 Coronavirus (PCR) Negative (Negative) 10/30/21 Unknown Hepatitis A IgM Ab Non-reactive (NonReactive) 12/01/21 19:36 Hep Bs Antigen Non-reactive (Negative) 12/01/21 19:36 Hep B Core IgM Ab Non-reactive (NonReactive) 12/01/21 19:36 Hepatitis C Antibody Non-reactive (NonReactive) 12/01/21 19:36 Blood Type O POSITIVE 12/15/21 12:08 Antibody Screen Negative 12/15/21 12:08 Crossmatch See Detail 12/15/21 12:08 Krishna/IV: Voiding Method External Female Catheter Active Medications - Current Medications Current Medications: Generic Name Dose Route Start Last Admin Trade Name Freq PRN Reason Stop Dose Admin Acetaminophen 650 mg 10/29/21 17:04 11/12/21 22:53 Acetaminophen 650 Mg Rect Supp OR 650 mg Q6H PRN Administration Pain MILD(1-3)/Fever >100.5/NIEVES Acetaminophen 650 mg 11/19/21 16:35 12/12/21 15:55 Acetaminophen 325 Mg Tab PO 650 mg Q6HR PRN Administration PAIN Albumin Human 50 gm 12/02/21 11:00 12/15/21 13:00 Albumin Human 25% (25 Gm/100 Ml) Inj IV 50 gm ZACH PRN Administration Hypotension Alprazolam 0.25 mg 11/14/21 14:29 12/15/21 11:02 Alprazolam 0.25 Mg Tab PO 0.25 mg Q8H PRN Administration Anxiety Amiodarone HCl 200 mg 12/13/21 22:00 12/16/21 09:32 Amiodarone 200 Mg Tab PO 200 mg BID RAMON Administration Docusate Sodium 100 mg 11/18/21 15:00 12/16/21 09:28 Docusate Sodium 100 Mg Cap PO 100 mg BID RAMON Administration Epoetin Landon-epbx 10,000 unit 12/06/21 10:00 12/15/21 15:15 Epoetin Landon-Epbx 10,000 Unit/1 Ml Vial IV 10,000 unit ZACH PRN Administration hemodialysis Famotidine 10 mg 11/06/21 10:00 12/16/21 09:28 Famotidine 10 Mg Tab PO 10 mg BID RAMON Administration Gabapentin 100 mg 11/28/21 14:00 12/16/21 05:39 Gabapentin 100 Mg Cap PO 100 mg Q8HR RAMON Administration Hydrophilic Ointment 1 applic 10/29/21 14:29 11/09/21 08:51 Lip Therapy Vaseline TP 1 applic Q2HR PRN Administration Dry Lips Sodium Chloride 100 mls @ 999 mls/hr 12/01/21 14:44 Nacl 0.9% IV ZACH PRN Hypotension Sodium Chloride 500 mls @ 0 mls/hr 12/15/21 11:54 Nacl 0.9% 500 Ml IV ONCE RAMON As Directed Insulin Human Lispro 0 unit 11/25/21 22:00 12/16/21 11:54 Insulin Lispro 100 Unit/Ml SUB-Q Not Given ACHS [facility] Protocol Lactulose 20 gm 11/18/21 14:43 12/06/21 15:26 Lactulose 20 Gm/30 Ml Oral Liqd PO 20 gm Q6H PRN Administration Constipation Magnesium Hydroxide 30 ml 12/16/21 11:00 12/16/21 11:11 Magnesium Hydroxide (Mom) Oral Liqd Udc PO 30 ml Q4H PRN Administration Constipation Melatonin 10 mg 11/22/21 17:31 12/13/21 22:09 Melatonin 5 Mg Tab PO 10 mg QHS PRN Administration Sleep Metoprolol Tartrate 100 mg 12/07/21 11:00 12/16/21 09:28 Metoprolol Tartrate 50 Mg Tab PO 100 mg BID RAMON Administration Midodrine 10 mg 12/01/21 12:00 12/16/21 08:37 Midodrine 5 Mg Tab PO 10 mg TID@0800,1200,1600 RAMON Administration Morphine Sulfate 1 mg 11/28/21 15:00 12/10/21 16:34 Morphine 2 Mg/1 Ml Inj IV 1 mg Q4H PRN Administration Pain, Moderate (4-6) Multi-Ingred Cream/Lotion/Oil/Oint 1 applic 10/29/21 14:29 11/06/21 09:25 Mineral Oil/Petrolatum, White Ophth Oint 3.5 Gm OU 1 applic Q4HR PRN Administration Dry Eye(s) Oxycodone/Acetaminophen 1 tab 11/27/21 14:31 12/13/21 03:29 Oxycodone /Acetaminophen 5-325mg Tab PO 1 tab Q4H PRN Administration Pain, Moderate (4-6) Polyethylene Glycol 17 gm 11/20/21 12:47 12/08/21 09:54 Polyethylene Glycol 3350 17 Gm Powder PO 17 gm QDAY PRN Administration Constipation Senna/Docusate Sodium 1 tab 11/16/21 22:00 12/16/21 09:29 Sennosides/Docusate Sodium 8.6/50 Mg Tab PO 1 tab BID RAMON Administration Sodium Chloride 10 ml 10/29/21 22:00 12/16/21 09:29 Sodium Chloride 0.9% 10 Ml Flush Syringe IV 10 ml BID RAMON Administration Sodium Chloride 10 ml 10/29/21 17:04 Sodium Chloride 0.9% 10 Ml Flush Syringe IV PRN PRN LINE FLUSH Nutrition/Malnutrition Assess - Dietary Evaluation Nutrition/Malnutrition Findings: Nutrition Notes Start: 10/30/21 09:50 Freq: Status: Active Protocol: Document 12/14/21 17:12 MEENU (Rec: 12/14/21 17:44 MEENU [id number]) Nutrition Notes Initial or Follow up Reassessment Current Diagnosis Acute Kidney Injury,Sepsis, Hypertension,Respiratory Failure Other Pertinent Diagnosis s/p Cardiopulmonary Arrest, Anemia, SIERRA/CKD+HD prn, Pneumonia, Hyponatremia Current Diet Renal Diet (since B 12/14). Labs/Tests 12/14: Na 132, BUN 43, Crea 1. 9. Pertinent Medications 12/14: Albumin 50 gm, others nutritionally unremarkable. Height 5 ft 10 in Weight 117.6 kg [place] Body Weight (kg) 68.18 BMI 37.2 Weight change and time frame 2.8 Kg body weigh gain reported in 9 days. Weight Status Obese Subjective/Other Information RD consult for routine F/U on Dietary tolerance. No indication for Mechanical Soft diet found, I discontinued the indication, will assess at F/U. RN note 12/13: Assist with dinner. eat 40% of meal. Per MD, fluid restriction to 1 ,000 ml/day, according to Progress note. Percent of energy/protein needs met: Prescribed Renal Diet provides for energy/protein needs (2, 072 Kcal/77 g) during LOS. Burn Absent Trauma Absent GI Symptoms None Food Allergy No Skin Integrity/Comment Assessment WNL. Current % PO Poor (25-49%) Minimum of two criteria No #1 Nutrition Diagnosis Inadequate oral intake Comments: Pt's PO intake of meals has been at 40%, and well tolerated, according to RN notes. Diet advanced to Renal. Diagnosis Progress(for reassessment Continues documentation) Is patient on ventilator? No Is Patient Ambulatory and/or Out of Bed No REE-([facility]-confined to bed) 2154.516 Kcal/Kg value to use for calculation 14 Approximate Energy Requirements Using 1646 kcal/Kg Calculation Used for Recommendations Kcal/kg Additional Notes Protein: >1.2 g/Kg AdjBW; >110 g/day. Fluids: 1-1.5 L/day, or as per MD. Nutrition Intervention Change Diet Order: Resume Renal Diet. Add Supplement/Snack (indicate name/kcal 8 fl oz nepro w/CARBSTEADY; /protein ) BID. Provides kCal: 850 Provides Protein (gm) 38 Goal #1 Compensate, through dietary supplementation, for possible poor or insufficient PO intake of meals during LOS. Goal #2 Maintain body weight within +/ -3% of admission body weight during LOS. Follow-Up By: 12/21/21 Additional Comments Continue monitoring food tolerance, %PO intake of meals , and BM.
--- NOTE | 2021-12-16 15:19 | Gastroenterology Consultation ---
History of Present Illness - Reason for Consult Consult date: 12/16/21 hematochezia Requesting physician: SAM COLE - History of Present Illness The patient is a 66 yo aaf with extensive past medical history and has had a prolonged hospitalization for over 6 weeks. she presented with cardiac arrest s/p acls and rosc, heart failure, aflutter/fib, retroperitoneal hematoma, septic shock and renal failure. she has been on eliquis. has had anemia throughout admission which has been in mostly stable range. she had an episode of hematochezia (blood with wipes) this afternoon per pt's nurse. no clots, hematemesis, or melena. she has had issues with constipation. Past History Past Medical History: atrial fib, DVT, renal failure, other (Morbid obesity) Past Surgical History: No surgical history Social history: single. denies: smoking, alcohol abuse, prescription drug abuse Family history: diabetes, hypertension Medications and Allergies Allergies Allergy/AdvReac Type Severity Reaction Status Date / Time No Known Allergies Allergy Verified 10/29/21 14:01 Home Medications Medication Instructions Recorded Confirmed Last Taken Type Unobtainable 11/10/21 11/10/21 Unknown History Active Meds: Active Medications Acetaminophen (Acetaminophen 650 Mg Rect Supp) 650 mg OK Q6H PRN PRN Reason: Pain MILD(1-3)/Fever >100.5/NIEVES Last Admin: 11/12/21 22:53 Dose: 650 mg Acetaminophen (Acetaminophen 325 Mg Tab) 650 mg PO Q6HR PRN PRN Reason: PAIN Last Admin: 12/12/21 15:55 Dose: 650 mg Albumin Human (Albumin Human 25% (25 Gm/100 Ml) Inj) 50 gm IV ZACH PRN PRN Reason: Hypotension Last Admin: 12/15/21 13:00 Dose: 50 gm Alprazolam (Alprazolam 0.25 Mg Tab) 0.25 mg PO Q8H PRN PRN Reason: Anxiety Last Admin: 12/15/21 11:02 Dose: 0.25 mg Amiodarone HCl (Amiodarone 200 Mg Tab) 200 mg PO BID [facility] Last Admin: 12/16/21 09:32 Dose: 200 mg Docusate Sodium (Docusate Sodium 100 Mg Cap) 100 mg PO BID [facility] Last Admin: 12/16/21 09:28 Dose: 100 mg Epoetin Landon-epbx (Epoetin [place]-Epbx 10,000 Unit/1 Ml Vial) 10,000 unit IV ZACH PRN PRN Reason: hemodialysis Last Admin: 12/15/21 15:15 Dose: 10,000 unit Famotidine (Famotidine 10 Mg Tab) 10 mg PO BID [facility] Last Admin: 12/16/21 09:28 Dose: 10 mg Gabapentin (Gabapentin 100 Mg Cap) 100 mg PO Q8HR [facility] Last Admin: 12/16/21 14:26 Dose: 100 mg Hydrophilic Ointment (Lip Therapy Vaseline) 1 applic TP Q2HR PRN PRN Reason: Dry Lips Last Admin: 11/09/21 08:51 Dose: 1 applic Sodium Chloride (Nacl 0.9%) 100 mls @ 999 mls/hr IV ZACH PRN PRN Reason: Hypotension Sodium Chloride (Nacl 0.9% 500 Ml) 500 mls @ 0 mls/hr IV ONCE RAMON Insulin Human Lispro (Insulin Lispro 100 Unit/Ml) 0 unit SUB-Q ACHS [facility]; Protocol Last Admin: 12/16/21 11:54 Dose: Not Given Lactulose (Lactulose 20 Gm/30 Ml Oral Liqd) 20 gm PO Q6H PRN PRN Reason: Constipation Last Admin: 12/06/21 15:26 Dose: 20 gm Magnesium Hydroxide (Magnesium Hydroxide (Mom) Oral Liqd Udc) 30 ml PO Q4H PRN PRN Reason: Constipation Last Admin: 12/16/21 11:11 Dose: 30 ml Melatonin (Melatonin 5 Mg Tab) 10 mg PO QHS PRN PRN Reason: Sleep Last Admin: 12/13/21 22:09 Dose: 10 mg Metoprolol Tartrate (Metoprolol Tartrate 50 Mg Tab) 100 mg PO BID [facility] [place] Last Admin: 12/16/21 09:28 Dose: 100 mg Midodrine (Midodrine 5 Mg Tab) 10 mg PO TID@0800,1200,1600 [facility] Last Admin: 12/16/21 13:27 Dose: 10 mg Morphine Sulfate (Morphine 2 Mg/1 Ml Inj) 1 mg IV Q4H PRN PRN Reason: Pain, Moderate (4-6) Last Admin: 12/10/21 16:34 Dose: 1 mg Multi-Ingred Cream/Lotion/Oil/Oint (Mineral Oil/Petrolatum, White Ophth Oint 3.5 Gm) 1 applic OU Q4HR PRN PRN Reason: Dry Eye(s) Last Admin: 11/06/21 09:25 Dose: 1 applic Oxycodone/Acetaminophen (Oxycodone /Acetaminophen 5-325mg Tab) 1 tab PO Q4H PRN PRN Reason: Pain, Moderate (4-6) Last Admin: 12/13/21 03:29 Dose: 1 tab Polyethylene Glycol (Polyethylene Glycol 3350 17 Gm Powder) 17 gm PO QDAY PRN PRN Reason: Constipation Last Admin: 12/08/21 09:54 Dose: 17 gm Senna/Docusate Sodium (Sennosides/Docusate Sodium 8.6/50 Mg Tab) 1 tab PO BID RAMON Last Admin: 12/16/21 09:29 Dose: 1 tab Sodium Chloride (Sodium Chloride 0.9% 10 Ml Flush Syringe) 10 ml IV BID RAMON Last Admin: 12/16/21 09:29 Dose: 10 ml Sodium Chloride (Sodium Chloride 0.9% 10 Ml Flush Syringe) 10 ml IV PRN PRN PRN Reason: LINE FLUSH Reviewed/updated patient's home and current medications Review of Systems - Review of Systems ROS unobtainable: due to mental status Exam - Constitutional Vital Signs: Temp Pulse Resp BP Pulse Ox 97.8 F 76 16 120/81 98 12/16/21 08:15 12/16/21 11:00 12/16/21 08:15 12/16/21 08:15 12/16/21 10:00 General appearance: no acute distress - Respiratory Respiratory effort: normal Respiratory: bilateral: CTA - Cardiovascular Rhythm: regular Heart Sounds: Present: S1 & S2 - Gastrointestinal General gastrointestinal: Present: soft, non-tender, non-distended - Neurologic Neurological: disoriented - Labs CBC & Chem 7: 12/16/21 08:44 12/16/21 07:03 Lab Results: Laboratory Results - last 24 hr 12/15/21 12/15/21 12/16/21 12:08 21:05 07:03 WBC RBC Hgb Hct MCV MCH MCHC RDW Plt Count Sodium 134 L Potassium 5.0 Chloride 99.0 Carbon Dioxide 26 Anion Gap 14 BUN 39 H Creatinine 1.5 H Estimated GFR 42 BUN/Creatinine Ratio 26 Glucose 104 H POC Glucose 146 H Calcium 9.3 Crossmatch See Detail 12/16/21 08:44 WBC 11.7 H RBC 2.72 L Hgb 8.2 L Hct 25.2 L MCV 93 MCH 30 MCHC 33 RDW 19.3 H Plt Count 227 Sodium Potassium Chloride Carbon Dioxide Anion Gap BUN Creatinine Estimated GFR BUN/Creatinine Ratio Glucose POC Glucose Calcium Crossmatch Assessment and Plan 1. Hematochezia - in setting of constipation and while on eliquis. H/H mostly s table, has had chronic anemia during admission. suspect ano-rectal/outlet source given description and in setting of constipation. bowel regimen daily (miralax bid) and can try hemorrhoidal cream/suppository. can resume eliquis from gi stand point if strongly indicated and if H/H remains stable. would not plan for colonoscopy unless significant bleeding or other indication arises given co-mordibities and other medical issues. will sign off, please call as needed or changes in clinical course/continued bleeding.
[2021-12-16 16:07] LABS: Hemoglobin 8.3 gm/dl (10.1-14.3)
[2021-12-16 16:17] LABS: Hematocrit 26.2 % (30.3-42.9)
[2021-12-16] MEDS: oxyCODONE /ACETAMINOPHEN 5-325MG TAB PO PRN (19:51)
--- NOTE | 2021-12-16 20:12 | Progress Note ---
Assessment and Plan 66 YO Female with Obesity presents to ED for evaluation. Patient is intubated and on ventilatory support . Patient was attending restorationist services when the patient collapsed and lost consciousness. Witnesses began CPR. EMS was notified and upon arrival the patient was found to be in distress without perfusing cardiac rhythm. Patient initiated on ACLS protocol and subsequently intubated in the field and subsequent transported to [facility] for further care and evaluation of the aforementioned symptoms. The patient regained spontaneous ci rculation during transport. Patient seen and evaluated upon arrival and found to have acute hypoxemic respiratory failure, septic shock suspected secondary to aspiration pneumonia, metabolic acidosis, toxic metabolic encephalopathy, shock liver, and cardiac arrest with return of perfusing cardiac rhythm after initiation of ACLS protocol. Patient initiated on sepsis protocol as well as pneumonia protocol. Patient admitted to ICU. No reports of fever, chills, chest pain, palpitation, productive cough, skin rash, recent contact, known exposure to COVID-19. Patient has history of diabetes and hypertension. According to the chart review, patient has no history of smoking, alcohol or drug abuse. Patient eventually extubated. Patient transfered to Telemetry. Patient sleeping but arousable.. on 3 litres O2. O2 saturation 99%. No complaint of chest pain, shortness of breath or cough. Patient Obese , No acute respiratory distress. ABGs on room air 12/12/21 reported PH 7.33, PCO2 50, PO2 57, HCO3 26, O2 saturation 88%. Recommended to place her back on Oxygen. Patient afebrile. No leukocytosis. Blood pressure 136/76, pulse 50, Respirations 18. Chest xray done 11/18/21 reported Improving interstitial edema. Bilateral duplex study of legs 11/21/21 reported Acute occlusive thrombus is now visualized within the right peroneal veins. There is propagation of the left calf DVT into the popliteal vein on today's exam (near occlusive). CTA of chest:12/01/21 reported The exam is limited secondary to respiratory motion artifact. Low lung volumes. No central pulmonary thromboembolus is identified. The thoracic aorta is grossly unremarkable without aneurysm or dissection. Mild bibasilar atelectasis are present. Incidentally there are multiple healing anterior rib fractures involving the first, second, third, fourth, fifth, sixth and seventh ribs bilaterally. There is a nondisplaced fracture involving the left eighth rib. Chest xray done 12/12/21 reported Pleuroparenchymal opacity in the left lower hemithorax is probably unchanged. No new abnormality. No pneumothorax. Patient presently on famotidine. Eliquis. DVT Management as per vascular surgery. - Patient Problems (1) Acute hypoxemic respiratory failure Current Visit: Yes Status: Acute Plan to address problem: Patient presently on 3 litres O2. O2 saturation 99%. No acute respiratory distress. (2) Cardiopulmonary arrest Current Visit: Yes Status: Acute Plan to address problem: S/P Resucitation to ROSC. (3) Atrial fibrillation and flutter Current Visit: Yes Status: Acute Plan to address problem: Management as per cardiology. Patient is on Eliquis. (4) Acute metabolic encephalopathy Current Visit: Yes Status: Acute Plan to address problem: Management as per primary care. (5) Acute kidney injury Current Visit: Yes Status: Acute Plan to address problem: Management as per nephrology. (6) DVT (deep venous thrombosis) Current Visit: Yes Status: Acute Qualifiers: Affected thrombotic vein of extremity: peroneal Plan to address problem: Patient is on Eliquis. Management as per vascular surgery. (7) Obesity hypoventilation syndrome Current Visit: Yes Status: Acute Plan to address problem: Recommend sleep study as out patient. Dietary consultion for weight reduction diet. Recommend BIPAP during night time PRN for day time sleepiness. (8) Pneumothorax, right Current Visit: Yes Status: Acute Plan to address problem: S/P chest tube placement and expansion of right lung. Subjective Date of service: 12/16/21 Principal diagnosis: AHRF; Cardiac arrest; R. pneumothorax; pneumonia; AMS; DVT's; SIERRA; Obesity Interval history: 66 YO Female with Obesity presents to ED for evaluation. Patient is intubated and on ventilatory support . Patient was attending restorationist services when the patient collapsed and lost consciousness. Witnesses began CPR. EMS was notified and upon arrival the patient was found to be in distress without perfusing cardiac rhythm. Patient initiated on ACLS protocol and subsequently intubated in the field and subsequent transported to [facility] for further care and evaluation of the aforementioned symptoms. The patient regained spontaneous circulation during transport. Patient seen and evaluated upon arrival and found to have acute hypoxemic respiratory failure, septic shock suspected secondary to aspiration pneumonia, metabolic acidosis, toxic metabolic encephalopathy, shock liver, and cardiac arrest with return of perfusing cardiac rhythm after initiation of ACLS protocol. Patient initiated on sepsis protocol as well as pneumonia protocol. Patient admitted to ICU. No reports of fever, chills, chest pain, palpitation, productive cough, skin rash, recent contact, known exposure to COVID-19. Patient has history of diabetes and hypertension. According to the chart review, patient has no history of smoking, alcohol or drug abuse. Patient eventually extubated. Patient transfered to Telemetry. Patient sleeping but arousable.. on 3 litres O2. O2 saturation 99%. No complaint of chest pain, shortness of breath or cough. Patient Obese , No acute respiratory distress. ABGs on room air 12/12/21 reported PH 7.33, PCO2 50, PO2 57, HCO3 26, O2 saturation 88%. Recommended to place her back on Oxygen. Patient afebrile. No leukocytosis. Blood pressure 136/76, pulse 50, Respirations 18. Chest xray done 11/18/21 reported Improving interstitial edema. Bilateral duplex study of legs 11/21/21 reported Acute occlusive thrombus is now visualized within the right peroneal veins. There is propagation of the left calf DVT into the popliteal vein on today's exam (near occlusive). CTA of chest:12/01/21 reported The exam is limited secondary to respiratory motion artifact. Low lung volumes. No central pulmonary thromboembolus is identified. The thoracic aorta is grossly unremarkable without aneurysm or dissection. Mild bibasilar atelectasis are present. Incidentally there are multiple healing anterior rib fractures involving the first, second, third, fourth, fifth, sixth and seventh ribs bilaterally. There is a nondisplaced fracture involving the left eighth rib. Chest xray 12/12/21 reported Pleuroparenchymal opacity in the left lower hemithorax is probably unchanged. No new abnormality. No pneumothorax. Patient presently on famotidine. Eliquis. DVT Management as per vascular surgery. Objective Vital Signs - 12hr 12/16/21 12/16/21 12/16/21 08:15 10:00 10:15 Temperature 97.8 F Pulse Rate 76 Respiratory 16 Rate Blood Pressure 120/81 O2 Sat by Pulse 100 98 93 Oximetry 12/16/21 12/16/21 12/16/21 11:00 16:02 19:51 Temperature 98.2 F Pulse Rate 76 47 L Respiratory 16 18 Rate Blood Pressure 141/81 O2 Sat by Pulse 100 Oximetry 12/16/21 19:53 Temperature Pulse Rate 47 L Respiratory Rate Blood Pressure O2 Sat by Pulse Oximetry Constitutional: no acute distress, alert, other (elderly obese female with mildly increased respiratory effort at rest ) Eyes: non-icteric ENT: oropharynx moist Neck: supple, no lymphadenopathy, no JVD, other (large circumference) Effort: mildly labored Ascultation: Bilateral: diminished breath sounds, rhonchi (bases) Percussion: Bilateral: not dull Cardiovascular: regular rate and rhythm, other (no R/M) Gastrointestinal: normoactive bowel sounds, soft, non-tender, other (obese) Integumentary: normal, other (Left flank ecchymosis with induration) Extremities: no cyanosis, pulses normal, no ischemia or petechiae, edema (2+) Neurologic: normal mental status, non-focal exam (grossly), pupils equal and round, motor strength normal and (weak) Psychiatric: mood appropriate, affect normal CBC and BMP: 12/16/21 21:05 12/16/21 21:05 ABG, PT/INR, D-dimer: ABG ABG pH 7.333 pH Units (7.350-7.450) L 12/12/21 14:10 ABG pCO2 50.1 mm Hg 12/12/21 14:10 ABG pO2 57.0 mm Hg (80.0-90.0) L 12/12/21 14:10 ABG O2 Saturation 88.0 % (95.0-99.0) L 12/12/21 14:10 PT/INR, D-dimer PT 13.4 Sec. (12.2-14.9) 12/11/21 13:08 INR 0.92 (0.87-1.13) 12/11/21 13:08 D-Dimer > 15271 ng/mlDDU (0-234) H 10/30/21 Unknown Abnormal lab findings: Abnormal Labs 10/29/21 10/29/21 10/29/21 15:10 15:10 15:10 WBC 27.8 H RBC Hgb Hct MCH 27 L RDW Plt Count Lymph % (Auto) Sharkey % (Auto) Lymph # (Auto) Sharkey # (Auto) Seg Neutrophils % Seg Neuts % (Manual) 78.0 H Lymphocytes % (Manual) 10.0 L Monocytes % (Manual) Basophils % (Manual) Nucleated RBC % Seg Neutrophils # Seg Neutrophils # Man 21.7 H Lymphocytes # (Manual) Monocytes # (Manual) 1.4 H Eosinophils # (Manual) Basophils # (Manual) PT INR APTT D-Dimer Heparin Anti-Xa Level ABG pH ABG pO2 ABG HCO3 ABG O2 Saturation ABG Base Excess ABG Hemoglobin Oxyhemoglobin Sodium Potassium Chloride Carbon Dioxide BUN Creatinine Glucose POC Glucose Hemoglobin A1c Lactic Acid 6.80 H* Calcium Phosphorus Magnesium Ferritin AST ALT Alkaline Phosphatase Lactate Dehydrogenase Troponin T 0.089 H C-Reactive Protein Total Protein Albumin LDL Cholesterol Direct Urine Creatinine Urine Total Protein Salicylates Acetaminophen Crossmatch 10/29/21 10/29/21 10/29/21 15:10 15:10 15:10 WBC RBC Hgb Hct MCH RDW Plt Count Lymph % (Auto) Sharkey % (Auto) Lymph # (Auto) Sharkey # (Auto) Seg Neutrophils % Seg Neuts % (Manual) Lymphocytes % (Manual) Monocytes % (Manual) Basophils % (Manual) Nucleated RBC % Seg Neutrophils # Seg Neutrophils # Man Lymphocytes # (Manual) Monocytes # (Manual) Eosinophils # (Manual) Basophils # (Manual) PT INR APTT D-Dimer Heparin Anti-Xa Level ABG pH ABG pO2 ABG HCO3 ABG O2 Saturation ABG Base Excess ABG Hemoglobin Oxyhemoglobin Sodium 136 L Potassium 2.8 L* Chloride 93.4 L Carbon Dioxide 20 L BUN Creatinine Glucose 330 H POC Glucose Hemoglobin A1c Lactic Acid Calcium Phosphorus Magnesium Ferritin AST 1013 H ALT 1289 H Alkaline Phosphatase 246 H Lactate Dehydrogenase Troponin T C-Reactive Protein Total Protein Albumin LDL Cholesterol Direct Urine Creatinine Urine Total Protein Salicylates < 0.3 L Acetaminophen 5.0 L Crossmatch 10/29/21 10/29/21 10/29/21 15:11 16:01 19:29 WBC RBC Hgb Hct MCH RDW Plt Count Lymph % (Auto) Sharkey % (Auto) Lymph # (Auto) Sharkey # (Auto) Seg Neutrophils % Seg Neuts % (Manual) Lymphocytes % (Manual) Monocytes % (Manual) Basophils % (Manual) Nucleated RBC % Seg Neutrophils # Seg Neutrophils # Man Lymphocytes # (Manual) Monocytes # (Manual) Eosinophils # (Manual) Basophils # (Manual) PT INR APTT D-Dimer Heparin Anti-Xa Level ABG pH 7.307 L ABG pO2 64.1 L ABG HCO3 ABG O2 Saturation 90.8 L ABG Base Excess -2.9 L ABG Hemoglobin Oxyhemoglobin 89.3 L Sodium Potassium Chloride Carbon Dioxide BUN Creatinine Glucose POC Glucose Hemoglobin A1c Lactic Acid 2.60 H* Calcium Phosphorus Magnesium 2.90 H Ferritin AST ALT Alkaline Phosphatase Lactate Dehydrogenase Troponin T C-Reactive Protein Total Protein Albumin LDL Cholesterol Direct Urine Creatinine Urine Total Protein Salicylates Acetaminophen Crossmatch 10/29/21 10/29/21 10/30/21 19:40 22:34 04:30 WBC 16.2 H RBC Hgb Hct MCH 26 L RDW 15.5 H Plt Count Lymph % (Auto) 6.2 L Sharkey % (Auto) Lymph # (Auto) 1.0 L Sharkey # (Auto) 0.9 H Seg Neutrophils % 88.1 H Seg Neuts % (Manual) Lymphocytes % (Manual) Monocytes % (Manual) Basophils % (Manual) Nucleated RBC % Seg Neutrophils # 14.2 H Seg Neutrophils # Man Lymphocytes # (Manual) Monocytes # (Manual) Eosinophils # (Manual) Basophils # (Manual) PT INR APTT D-Dimer Heparin Anti-Xa Level ABG pH ABG pO2 ABG HCO3 ABG O2 Saturation ABG Base Excess ABG Hemoglobin Oxyhemoglobin Sodium Potassium Chloride Carbon Dioxide BUN Creatinine Glucose POC Glucose Hemoglobin A1c Lactic Acid Calcium Phosphorus Magnesium Ferritin AST ALT Alkaline Phosphatase Lactate Dehydrogenase Troponin T 1.950 H* D 1.150 H* D C-Reactive Protein Total Protein Albumin LDL Cholesterol Direct 43 L Urine Creatinine Urine Total Protein Salicylates Acetaminophen Crossmatch 10/30/21 10/30/21 10/30/21 04:30 04:35 05:45 WBC RBC Hgb Hct MCH RDW Plt Count Lymph % (Auto) Sharkey % (Auto) Lymph # (Auto) Sharkey # (Auto) Seg Neutrophils % Seg Neuts % (Manual) Lymphocytes % (Manual) Monocytes % (Manual) Basophils % (Manual) Nucleated RBC % Seg Neutrophils # Seg Neutrophils # Man Lymphocytes # (Manual) Monocytes # (Manual) Eosinophils # (Manual) Basophils # (Manual) PT INR APTT D-Dimer Heparin Anti-Xa Level ABG pH ABG pO2 69.5 L ABG HCO3 ABG O2 Saturation ABG Base Excess -2.7 L ABG Hemoglobin Oxyhemoglobin 94.7 L Sodium Potassium Chloride Carbon Dioxide 21 L BUN Creatinine Glucose 159 H POC Glucose 151 H Hemoglobin A1c Lactic Acid Calcium 7.9 L D Phosphorus Magnesium Ferritin AST 461 H ALT 686 H Alkaline Phosphatase 130 H Lactate Dehydrogenase Troponin T C-Reactive Protein Total Protein 5.6 L D Albumin 3.2 L LDL Cholesterol Direct Urine Creatinine Urine Total Protein Salicylates Acetaminophen Crossmatch 10/30/21 10/30/21 10/30/21 11:24 15:59 16:30 WBC RBC Hgb Hct MCH RDW Plt Count Lymph % (Auto) Sharkey % (Auto) Lymph # (Auto) Sharkey # (Auto) Seg Neutrophils % Seg Neuts % (Manual) Lymphocytes % (Manual) Monocytes % (Manual) Basophils % (Manual) Nucleated RBC % Seg Neutrophils # Seg Neutrophils # Man Lymphocytes # (Manual) Monocytes # (Manual) Eosinophils # (Manual) Basophils # (Manual) PT 17.2 H INR 1.27 H APTT 44.4 H D-Dimer Heparin Anti-Xa Level ABG pH ABG pO2 ABG HCO3 ABG O2 Saturation ABG Base Excess ABG Hemoglobin Oxyhemoglobin Sodium Potassium Chloride Carbon Dioxide BUN Creatinine Glucose POC Glucose 153 H 109 H Hemoglobin A1c Lactic Acid Calcium Phosphorus Magnesium Ferritin AST ALT Alkaline Phosphatase Lactate Dehydrogenase Troponin T C-Reactive Protein Total Protein Albumin LDL Cholesterol Direct Urine Creatinine Urine Total Protein Salicylates Acetaminophen Crossmatch 10/30/21 10/30/21 10/30/21 23:00 Unknown Unknown WBC RBC Hgb Hct MCH RDW Plt Count Lymph % (Auto) Sharkey % (Auto) Lymph # (Auto) Sharkey # (Auto) Seg Neutrophils % Seg Neuts % (Manual) Lymphocytes % (Manual) Monocytes % (Manual) Basophils % (Manual) Nucleated RBC % Seg Neutrophils # Seg Neutrophils # Man Lymphocytes # (Manual) Monocytes # (Manual) Eosinophils # (Manual) Basophils # (Manual) PT INR APTT D-Dimer > 25526 H Heparin Anti-Xa Level 0.82 H ABG pH ABG pO2 ABG HCO3 ABG O2 Saturation ABG Base Excess ABG Hemoglobin Oxyhemoglobin Sodium Potassium Chloride Carbon Dioxide BUN Creatinine Glucose POC Glucose Hemoglobin A1c Lactic Acid Calcium Phosphorus Magnesium Ferritin 208.4 H AST ALT Alkaline Phosphatase Lactate Dehydrogenase Troponin T C-Reactive Protein Total Protein Albumin LDL Cholesterol Direct Urine Creatinine Urine Total Protein Salicylates Acetaminophen Crossmatch 10/30/21 10/31/21 10/31/21 Unknown 04:30 04:30 WBC 14.4 H RBC Hgb Hct MCH 26 L RDW Plt Count Lymph % (Auto) Sharkey % (Auto) Lymph # (Auto) Sharkey # (Auto) Seg Neutrophils % Seg Neuts % (Manual) Lymphocytes % (Manual) Monocytes % (Manual) Basophils % (Manual) Nucleated RBC % Seg Neutrophils # Seg Neutrophils # Man Lymphocytes # (Manual) Monocytes # (Manual) Eosinophils # (Manual) Basophils # (Manual) PT INR APTT D-Dimer Heparin Anti-Xa Level ABG pH ABG pO2 ABG HCO3 ABG O2 Saturation ABG Base Excess ABG Hemoglobin Oxyhemoglobin Sodium Potassium 3.5 L Chloride 107.5 H Carbon Dioxide 20 L BUN 28 H Creatinine 1.7 H Glucose 113 H POC Glucose Hemoglobin A1c Lactic Acid Calcium 7.9 L Phosphorus Magnesium Ferritin AST ALT Alkaline Phosphatase Lactate Dehydrogenase 469 H Troponin T C-Reactive Protein 13.40 H Total Protein Albumin LDL Cholesterol Direct Urine Creatinine Urine Total Protein Salicylates Acetaminophen Crossmatch 10/31/21 10/31/21 10/31/21 04:30 05:11 15:30 WBC RBC Hgb Hct MCH RDW Plt Count Lymph % (Auto) Sharkey % (Auto) Lymph # (Auto) Sharkey # (Auto) Seg Neutrophils % Seg Neuts % (Manual) Lymphocytes % (Manual) Monocytes % (Manual) Basophils % (Manual) Nucleated RBC % Seg Neutrophils # Seg Neutrophils # Man Lymphocytes # (Manual) Monocytes # (Manual) Eosinophils # (Manual) Basophils # (Manual) PT INR APTT D-Dimer Heparin Anti-Xa Level ABG pH 7.222 L ABG pO2 61.5 L ABG HCO3 ABG O2 Saturation 86.2 L ABG Base Excess -6.3 L ABG Hemoglobin 11.2 L Oxyhemoglobin 84.5 L Sodium Potassium Chloride Carbon Dioxide BUN Creatinine Glucose POC Glucose 106 H Hemoglobin A1c 6.7 H Lactic Acid Calcium Phosphorus Magnesium Ferritin AST ALT Alkaline Phosphatase Lactate Dehydrogenase Troponin T C-Reactive Protein Total Protein Albumin LDL Cholesterol Direct Urine Creatinine Urine Total Protein Salicylates Acetaminophen Crossmatch 10/31/21 10/31/21 10/31/21 16:07 16:35 17:45 WBC RBC Hgb Hct MCH RDW Plt Count Lymph % (Auto) Sharkey % (Auto) Lymph # (Auto) Sharkey # (Auto) Seg Neutrophils % Seg Neuts % (Manual) Lymphocytes % (Manual) Monocytes % (Manual) Basophils % (Manual) Nucleated RBC % Seg Neutrophils # Seg Neutrophils # Man Lymphocytes # (Manual) Monocytes # (Manual) Eosinophils # (Manual) Basophils # (Manual) PT INR APTT D-Dimer Heparin Anti-Xa Level ABG pH 7.267 L ABG pO2 58.3 L ABG HCO3 ABG O2 Saturation 88.3 L ABG Base Excess -5.9 L ABG Hemoglobin 10.1 L Oxyhemoglobin 86.5 L Sodium Potassium Chloride Carbon Dioxide BUN Creatinine Glucose POC Glucose 115 H Hemoglobin A1c Lactic Acid Calcium Phosphorus Magnesium Ferritin AST ALT Alkaline Phosphatase Lactate Dehydrogenase Troponin T C-Reactive Protein Total Protein Albumin LDL Cholesterol Direct Urine Creatinine 383.6 H Urine Total Protein Salicylates Acetaminophen Crossmatch 11/01/21 11/01/21 11/01/21 00:06 05:08 06:00 WBC 12.6 H RBC 3.43 L Hgb 8.9 L Hct 28.7 L MCH 26 L RDW 15.7 H Plt Count 130 L Lymph % (Auto) Sharkey % (Auto) Lymph # (Auto) Sharkey # (Auto) Seg Neutrophils % Seg Neuts % (Manual) Lymphocytes % (Manual) Monocytes % (Manual) Basophils % (Manual) Nucleated RBC % Seg Neutrophils # Seg Neutrophils # Man Lymphocytes # (Manual) Monocytes # (Manual) Eosinophils # (Manual) Basophils # (Manual) PT INR APTT D-Dimer Heparin Anti-Xa Level ABG pH ABG pO2 ABG HCO3 ABG O2 Saturation ABG Base Excess ABG Hemoglobin Oxyhemoglobin Sodium Potassium Chloride Carbon Dioxide BUN Creatinine Glucose POC Glucose 114 H 120 H Hemoglobin A1c Lactic Acid Calcium Phosphorus Magnesium Ferritin AST ALT Alkaline Phosphatase Lactate Dehydrogenase Troponin T C-Reactive Protein Total Protein Albumin LDL Cholesterol Direct Urine Creatinine Urine Total Protein Salicylates Acetaminophen Crossmatch 11/01/21 11/01/21 11/01/21 06:00 11:43 14:00 WBC RBC Hgb Hct MCH RDW Plt Count Lymph % (Auto) Sharkey % (Auto) Lymph # (Auto) Sharkey # (Auto) Seg Neutrophils % Seg Neuts % (Manual) Lymphocytes % (Manual) Monocytes % (Manual) Basophils % (Manual) Nucleated RBC % Seg Neutrophils # Seg Neutrophils # Man Lymphocytes # (Manual) Monocytes # (Manual) Eosinophils # (Manual) Basophils # (Manual) PT INR APTT D-Dimer Heparin Anti-Xa Level ABG pH 7.349 L ABG pO2 75.6 L ABG HCO3 ABG O2 Saturation ABG Base Excess -3.9 L ABG Hemoglobin 9.8 L Oxyhemoglobin 93.5 L Sodium Potassium Chloride 114.1 H Carbon Dioxide 20 L BUN 33 H Creatinine Glucose 131 H POC Glucose 151 H Hemoglobin A1c Lactic Acid Calcium 7.7 L Phosphorus Magnesium Ferritin AST 79 H ALT 259 H Alkaline Phosphatase Lactate Dehydrogenase Troponin T C-Reactive Protein Total Protein 5.5 L Albumin 2.7 L LDL Cholesterol Direct Urine Creatinine Urine Total Protein Salicylates Acetaminophen Crossmatch 11/01/21 11/01/21 11/02/21 16:45 22:55 05:12 WBC RBC Hgb Hct MCH RDW Plt Count Lymph % (Auto) Sharkey % (Auto) Lymph # (Auto) Sharkey # (Auto) Seg Neutrophils % Seg Neuts % (Manual) Lymphocytes % (Manual) Monocytes % (Manual) Basophils % (Manual) Nucleated RBC % Seg Neutrophils # Seg Neutrophils # Man Lymphocytes # (Manual) Monocytes # (Manual) Eosinophils # (Manual) Basophils # (Manual) PT INR APTT D-Dimer Heparin Anti-Xa Level ABG pH ABG pO2 ABG HCO3 ABG O2 Saturation ABG Base Excess ABG Hemoglobin Oxyhemoglobin Sodium Potassium Chloride Carbon Dioxide BUN Creatinine Glucose POC Glucose 119 H 129 H 140 H Hemoglobin A1c Lactic Acid Calcium Phosphorus Magnesium Ferritin AST ALT Alkaline Phosphatase Lactate Dehydrogenase Troponin T C-Reactive Protein Total Protein Albumin LDL Cholesterol Direct Urine Creatinine Urine Total Protein Salicylates Acetaminophen Crossmatch 11/02/21 11/02/21 11/02/21 05:35 05:35 09:35 WBC 13.5 H RBC 3.60 L Hgb 9.7 L Hct MCH 27 L RDW 15.7 H Plt Count Lymph % (Auto) Sharkey % (Auto) Lymph # (Auto) Sharkey # (Auto) Seg Neutrophils % Seg Neuts % (Manual) Lymphocytes % (Manual) Monocytes % (Manual) Basophils % (Manual) Nucleated RBC % Seg Neutrophils # Seg Neutrophils # Man Lymphocytes # (Manual) Monocytes # (Manual) Eosinophils # (Manual) Basophils # (Manual) PT INR APTT D-Dimer Heparin Anti-Xa Level ABG pH 7.208 L ABG pO2 75.9 L ABG HCO3 ABG O2 Saturation 93.6 L ABG Base Excess -4.3 L ABG Hemoglobin 9.1 L Oxyhemoglobin 91.6 L Sodium Potassium 5.2 H D Chloride 112.6 H Carbon Dioxide BUN 32 H Creatinine Glucose 152 H POC Glucose Hemoglobin A1c Lactic Acid Calcium 8.2 L Phosphorus Magnesium 2.70 H Ferritin AST ALT Alkaline Phosphatase Lactate Dehydrogenase Troponin T C-Reactive Protein Total Protein Albumin LDL Cholesterol Direct Urine Creatinine Urine Total Protein Salicylates Acetaminophen Crossmatch 11/02/21 11/02/21 11/02/21 11:44 17:13 23:43 WBC RBC Hgb Hct MCH RDW Plt Count Lymph % (Auto) Sharkey % (Auto) Lymph # (Auto) Sharkey # (Auto) Seg Neutrophils % Seg Neuts % (Manual) Lymphocytes % (Manual) Monocytes % (Manual) Basophils % (Manual) Nucleated RBC % Seg Neutrophils # Seg Neutrophils # Man Lymphocytes # (Manual) Monocytes # (Manual) Eosinophils # (Manual) Basophils # (Manual) PT INR APTT D-Dimer Heparin Anti-Xa Level ABG pH ABG pO2 ABG HCO3 ABG O2 Saturation ABG Base Excess ABG Hemoglobin Oxyhemoglobin Sodium Potassium Chloride Carbon Dioxide BUN Creatinine Glucose POC Glucose 173 H 148 H 137 H Hemoglobin A1c Lactic Acid Calcium Phosphorus Magnesium Ferritin AST ALT Alkaline Phosphatase Lactate Dehydrogenase Troponin T C-Reactive Protein Total Protein Albumin LDL Cholesterol Direct Urine Creatinine Urine Total Protein Salicylates Acetaminophen Crossmatch 11/03/21 11/03/21 11/03/21 04:59 06:00 06:00 WBC RBC 3.43 L Hgb 9.1 L Hct 29.0 L MCH 26 L RDW 16.4 H Plt Count Lymph % (Auto) Sharkey % (Auto) Lymph # (Auto) Sharkey # (Auto) Seg Neutrophils % Seg Neuts % (Manual) Lymphocytes % (Manual) Monocytes % (Manual) Basophils % (Manual) Nucleated RBC % Seg Neutrophils # Seg Neutrophils # Man Lymphocytes # (Manual) Monocytes # (Manual) Eosinophils # (Manual) Basophils # (Manual) PT INR APTT D-Dimer Heparin Anti-Xa Level 0.17 L ABG pH ABG pO2 ABG HCO3 ABG O2 Saturation ABG Base Excess ABG Hemoglobin Oxyhemoglobin Sodium Potassium Chloride Carbon Dioxide BUN Creatinine Glucose POC Glucose 167 H Hemoglobin A1c Lactic Acid Calcium Phosphorus Magnesium Ferritin AST ALT Alkaline Phosphatase Lactate Dehydrogenase Troponin T C-Reactive Protein Total Protein Albumin LDL Cholesterol Direct Urine Creatinine Urine Total Protein Salicylates Acetaminophen Crossmatch 11/03/21 11/03/21 11/03/21 06:00 09:20 11:58 WBC RBC Hgb Hct MCH RDW Plt Count Lymph % (Auto) Sharkey % (Auto) Lymph # (Auto) Sharkey # (Auto) Seg Neutrophils % Seg Neuts % (Manual) Lymphocytes % (Manual) Monocytes % (Manual) Basophils % (Manual) Nucleated RBC % Seg Neutrophils # Seg Neutrophils # Man Lymphocytes # (Manual) Monocytes # (Manual) Eosinophils # (Manual) Basophils # (Manual) PT INR APTT D-Dimer Heparin Anti-Xa Level ABG pH 7.274 L ABG pO2 75.6 L ABG HCO3 ABG O2 Saturation 94.9 L ABG Base Excess -2.5 L ABG Hemoglobin 9.3 L Oxyhemoglobin 92.9 L Sodium 149 H Potassium Chloride 117.5 H Carbon Dioxide BUN 32 H Creatinine Glucose 173 H POC Glucose 192 H Hemoglobin A1c Lactic Acid Calcium 8.1 L Phosphorus Magnesium Ferritin AST ALT Alkaline Phosphatase Lactate Dehydrogenase Troponin T C-Reactive Protein Total Protein Albumin LDL Cholesterol Direct Urine Creatinine Urine Total Protein Salicylates Acetaminophen Crossmatch 11/03/21 11/03/21 11/04/21 18:22 Unknown 00:09 WBC RBC Hgb Hct MCH RDW Plt Count Lymph % (Auto) [place]key % (Auto) Lymph # (Auto) [place]key # (Auto) Seg Neutrophils % Seg Neuts % (Manual) Lymphocytes % (Manual) Monocytes % (Manual) Basophils % (Manual) Nucleated RBC % Seg Neutrophils # Seg Neutrophils # Man Lymphocytes # (Manual) Monocytes # (Manual) Eosinophils # (Manual) Basophils # (Manual) PT INR APTT D-Dimer Heparin Anti-Xa Level 0.29 L ABG pH ABG pO2 ABG HCO3 ABG O2 Saturation ABG Base Excess ABG Hemoglobin Oxyhemoglobin Sodium Potassium Chloride Carbon Dioxide BUN Creatinine Glucose POC Glucose 178 H 221 H Hemoglobin A1c Lactic Acid Calcium Phosphorus Magnesium Ferritin AST ALT Alkaline Phosphatase Lactate Dehydrogenase Troponin T C-Reactive Protein Total Protein Albumin LDL Cholesterol Direct Urine Creatinine Urine Total Protein Salicylates Acetaminophen Crossmatch 11/04/21 11/04/21 11/04/21 05:09 09:40 09:40 WBC 16.8 H RBC Hgb Hct MCH 27 L RDW 16.5 H Plt Count Lymph % (Auto) [place]key % (Auto) Lymph # (Auto) [place]key # (Auto) Seg Neutrophils % Seg Neuts % (Manual) Lymphocytes % (Manual) Monocytes % (Manual) Basophils % (Manual) Nucleated RBC % Seg Neutrophils # Seg Neutrophils # Man Lymphocytes # (Manual) Monocytes # (Manual) Eosinophils # (Manual) Basophils # (Manual) PT INR APTT D-Dimer Heparin Anti-Xa Level ABG pH ABG pO2 ABG HCO3 ABG O2 Saturation ABG Base Excess ABG Hemoglobin Oxyhemoglobin Sodium Potassium 5.9 H Chloride 108.5 H Carbon Dioxide BUN 54 H Creatinine 1.8 H Glucose 198 H POC Glucose 182 H Hemoglobin A1c Lactic Acid Calcium Phosphorus Magnesium 3.00 H Ferritin AST ALT Alkaline Phosphatase Lactate Dehydrogenase Troponin T C-Reactive Protein Total Protein Albumin LDL Cholesterol Direct Urine Creatinine Urine Total Protein Salicylates Acetaminophen Crossmatch 11/04/21 11/04/21 11/04/21 12:13 13:34 14:05 WBC RBC Hgb Hct MCH RDW Plt Count Lymph % (Auto) [place]key % (Auto) Lymph # (Auto) [place]key # (Auto) Seg Neutrophils % Seg Neuts % (Manual) Lymphocytes % (Manual) Monocytes % (Manual) Basophils % (Manual) Nucleated RBC % Seg Neutrophils # Seg Neutrophils # Man Lymphocytes # (Manual) Monocytes # (Manual) Eosinophils # (Manual) Basophils # (Manual) PT INR APTT D-Dimer Heparin Anti-Xa Level ABG pH 7.223 L ABG pO2 71.3 L ABG HCO3 ABG O2 Saturation 92.8 L ABG Base Excess ABG Hemoglobin 8.2 L Oxyhemoglobin 91.0 L Sodium Potassium Chloride Carbon Dioxide BUN Creatinine Glucose POC Glucose 184 H Hemoglobin A1c Lactic Acid Calcium Phosphorus Magnesium Ferritin AST ALT Alkaline Phosphatase Lactate Dehydrogenase Troponin T C-Reactive Protein Total Protein Albumin LDL Cholesterol Direct Urine Creatinine 184.6 H Urine Total Protein Salicylates Acetaminophen Crossmatch 11/04/21 11/04/21 11/05/21 18:02 Unknown 00:07 WBC RBC Hgb Hct MCH RDW Plt Count Lymph % (Auto) [place] % (Auto) Lymph # (Auto) [place]key # (Auto) Seg Neutrophils % Seg Neuts % (Manual) Lymphocytes % (Manual) Monocytes % (Manual) Basophils % (Manual) Nucleated RBC % Seg Neutrophils # Seg Neutrophils # Man Lymphocytes # (Manual) Monocytes # (Manual) Eosinophils # (Manual) Basophils # (Manual) PT INR APTT D-Dimer Heparin Anti-Xa Level ABG pH ABG pO2 ABG HCO3 ABG O2 Saturation ABG Base Excess ABG Hemoglobin Oxyhemoglobin Sodium Potassium Chloride Carbon Dioxide BUN Creatinine Glucose POC Glucose 262 H 259 H Hemoglobin A1c Lactic Acid Calcium Phosphorus Magnesium Ferritin AST ALT Alkaline Phosphatase Lactate Dehydrogenase Troponin T C-Reactive Protein Total Protein Albumin LDL Cholesterol Direct Urine Creatinine 190.9 H Urine Total Protein 172 H Salicylates Acetaminophen Crossmatch 11/05/21 11/05/21 11/05/21 04:20 04:20 05:30 WBC 17.9 H RBC 3.64 L Hgb 9.7 L Hct MCH 27 L RDW 16.4 H Plt Count Lymph % (Auto) [place]key % (Auto) Lymph # (Auto) [place]key # (Auto) Seg Neutrophils % Seg Neuts % (Manual) Lymphocytes % (Manual) Monocytes % (Manual) Basophils % (Manual) Nucleated RBC % Seg Neutrophils # Seg Neutrophils # Man Lymphocytes # (Manual) Monocytes # (Manual) Eosinophils # (Manual) Basophils # (Manual) PT INR APTT D-Dimer Heparin Anti-Xa Level ABG pH ABG pO2 ABG HCO3 ABG O2 Saturation ABG Base Excess ABG Hemoglobin Oxyhemoglobin Sodium Potassium 5.6 H Chloride 108.4 H Carbon Dioxide BUN 71 H Creatinine 1.9 H Glucose 270 H POC Glucose 283 H Hemoglobin A1c Lactic Acid Calcium Phosphorus Magnesium Ferritin AST ALT Alkaline Phosphatase Lactate Dehydrogenase Troponin T C-Reactive Protein Total Protein Albumin LDL Cholesterol Direct Urine Creatinine Urine Total Protein Salicylates Acetaminophen Crossmatch 11/05/21 11/05/21 11/05/21 10:05 12:10 15:29 WBC RBC Hgb Hct MCH RDW Plt Count Lymph % (Auto) [place] % (Auto) Lymph # (Auto) [place]key # (Auto) Seg Neutrophils % Seg Neuts % (Manual) Lymphocytes % (Manual) Monocytes % (Manual) Basophils % (Manual) Nucleated RBC % Seg Neutrophils # Seg Neutrophils # Man Lymphocytes # (Manual) Monocytes # (Manual) Eosinophils # (Manual) Basophils # (Manual) PT INR APTT D-Dimer Heparin Anti-Xa Level ABG pH 7.248 L ABG pO2 73.7 L ABG HCO3 26.2 H ABG O2 Saturation 93.1 L ABG Base Excess ABG Hemoglobin 8.9 L Oxyhemoglobin 91.4 L Sodium Potassium Chloride Carbon Dioxide BUN Creatinine Glucose POC Glucose 225 H 199 H Hemoglobin A1c Lactic Acid Calcium Phosphorus Magnesium Ferritin AST ALT Alkaline Phosphatase Lactate Dehydrogenase Troponin T C-Reactive Protein Total Protein Albumin LDL Cholesterol Direct Urine Creatinine Urine Total Protein Salicylates Acetaminophen Crossmatch 11/05/21 11/05/21 11/05/21 15:51 17:32 17:40 WBC RBC Hgb Hct MCH RDW Plt Count Lymph % (Auto) [place]key % (Auto) Lymph # (Auto) [place]key # (Auto) Seg Neutrophils % Seg Neuts % (Manual) Lymphocytes % (Manual) Monocytes % (Manual) Basophils % (Manual) Nucleated RBC % Seg Neutrophils # Seg Neutrophils # Man Lymphocytes # (Manual) Monocytes # (Manual) Eosinophils # (Manual) Basophils # (Manual) PT INR APTT D-Dimer Heparin Anti-Xa Level ABG pH ABG pO2 ABG HCO3 ABG O2 Saturation ABG Base Excess ABG Hemoglobin Oxyhemoglobin Sodium Potassium 5.2 H Chloride 107.8 H Carbon Dioxide BUN 79 H Creatinine 1.9 H Glucose 204 H POC Glucose 278 H 197 H Hemoglobin A1c Lactic Acid Calcium Phosphorus Magnesium Ferritin AST ALT Alkaline Phosphatase Lactate Dehydrogenase Troponin T C-Reactive Protein Total Protein Albumin LDL Cholesterol Direct Urine Creatinine Urine Total Protein Salicylates Acetaminophen Crossmatch 11/05/21 11/05/21 11/05/21 21:25 22:22 23:43 WBC RBC Hgb Hct MCH RDW Plt Count Lymph % (Auto) [place] % (Auto) Lymph # (Auto) [place]key # (Auto) Seg Neutrophils % Seg Neuts % (Manual) Lymphocytes % (Manual) Monocytes % (Manual) Basophils % (Manual) Nucleated RBC % Seg Neutrophils # Seg Neutrophils # Man Lymphocytes # (Manual) Monocytes # (Manual) Eosinophils # (Manual) Basophils # (Manual) PT INR APTT D-Dimer Heparin Anti-Xa Level ABG pH ABG pO2 ABG HCO3 ABG O2 Saturation ABG Base Excess ABG Hemoglobin Oxyhemoglobin Sodium Potassium 5.3 H Chloride 109.2 H Carbon Dioxide BUN 81 H Creatinine 2.0 H Glucose 195 H POC Glucose 180 H 203 H Hemoglobin A1c Lactic Acid Calcium Phosphorus Magnesium Ferritin AST ALT Alkaline Phosphatase Lactate Dehydrogenase Troponin T C-Reactive Protein Total Protein Albumin LDL Cholesterol Direct Urine Creatinine Urine Total Protein Salicylates Acetaminophen Crossmatch 11/05/21 11/06/21 11/06/21 Unknown 02:35 05:09 WBC RBC Hgb Hct MCH RDW Plt Count Lymph % (Auto) [place] % (Auto) Lymph # (Auto) [place]key # (Auto) Seg Neutrophils % Seg Neuts % (Manual) Lymphocytes % (Manual) Monocytes % (Manual) Basophils % (Manual) Nucleated RBC % Seg Neutrophils # Seg Neutrophils # Man Lymphocytes # (Manual) Monocytes # (Manual) Eosinophils # (Manual) Basophils # (Manual) PT INR APTT D-Dimer Heparin Anti-Xa Level ABG pH ABG pO2 ABG HCO3 ABG O2 Saturation ABG Base Excess ABG Hemoglobin Oxyhemoglobin Sodium 146 H Potassium 6.0 H Chloride 108.1 H 107.1 H Carbon Dioxide 21 L BUN 80 H 84 H Creatinine 2.0 H 2.0 H Glucose 238 H 235 H POC Glucose 215 H Hemoglobin A1c Lactic Acid Calcium Phosphorus Magnesium 2.80 H Ferritin AST ALT 77 H Alkaline Phosphatase Lactate Dehydrogenase Troponin T C-Reactive Protein Total Protein Albumin 3.0 L LDL Cholesterol Direct Urine Creatinine Urine Total Protein Salicylates Acetaminophen Crossmatch 11/06/21 11/06/21 11/06/21 05:40 08:07 08:07 WBC RBC Hgb Hct MCH RDW Plt Count Lymph % (Auto) [place] % (Auto) Lymph # (Auto) [place] # (Auto) Seg Neutrophils % Seg Neuts % (Manual) Lymphocytes % (Manual) Monocytes % (Manual) Basophils % (Manual) Nucleated RBC % Seg Neutrophils # Seg Neutrophils # Man Lymphocytes # (Manual) Monocytes # (Manual) Eosinophils # (Manual) Basophils # (Manual) PT INR APTT D-Dimer Heparin Anti-Xa Level 1.24 H ABG pH 7.311 L ABG pO2 72.8 L ABG HCO3 29.7 H ABG O2 Saturation 94.1 L ABG Base Excess ABG Hemoglobin 11.4 L Oxyhemoglobin 92.3 L Sodium Potassium 5.2 H Chloride Carbon Dioxide BUN 85 H Creatinine 2.3 H Glucose 236 H POC Glucose Hemoglobin A1c Lactic Acid Calcium Phosphorus Magnesium Ferritin AST ALT Alkaline Phosphatase Lactate Dehydrogenase Troponin T C-Reactive Protein Total Protein Albumin LDL Cholesterol Direct Urine Creatinine Urine Total Protein Salicylates Acetaminophen Crossmatch 11/06/21 11/06/21 11/06/21 12:14 12:57 14:28 WBC RBC Hgb Hct MCH RDW Plt Count Lymph % (Auto) [place] % (Auto) Lymph # (Auto) [place] # (Auto) Seg Neutrophils % Seg Neuts % (Manual) Lymphocytes % (Manual) Monocytes % (Manual) Basophils % (Manual) Nucleated RBC % Seg Neutrophils # Seg Neutrophils # Man Lymphocytes # (Manual) Monocytes # (Manual) Eosinophils # (Manual) Basophils # (Manual) PT INR APTT D-Dimer Heparin Anti-Xa Level ABG pH 7.282 L ABG pO2 72.6 L ABG HCO3 30.8 H ABG O2 Saturation 93.7 L ABG Base Excess 3.2 H ABG Hemoglobin 8.6 L Oxyhemoglobin 91.8 L Sodium Potassium Chloride Carbon Dioxide BUN 91 H Creatinine 2.6 H Glucose 259 H POC Glucose 225 H Hemoglobin A1c Lactic Acid Calcium Phosphorus Magnesium Ferritin AST ALT Alkaline Phosphatase Lactate Dehydrogenase Troponin T C-Reactive Protein Total Protein Albumin LDL Cholesterol Direct Urine Creatinine Urine Total Protein Salicylates Acetaminophen Crossmatch 11/06/21 11/06/21 11/06/21 17:28 19:20 21:30 WBC RBC Hgb Hct MCH RDW Plt Count Lymph % (Auto) [place] % (Auto) Lymph # (Auto) [place]key # (Auto) Seg Neutrophils % Seg Neuts % (Manual) Lymphocytes % (Manual) Monocytes % (Manual) Basophils % (Manual) Nucleated RBC % Seg Neutrophils # Seg Neutrophils # Man Lymphocytes # (Manual) Monocytes # (Manual) Eosinophils # (Manual) Basophils # (Manual) PT INR APTT D-Dimer Heparin Anti-Xa Level 0.73 H ABG pH ABG pO2 ABG HCO3 ABG O2 Saturation ABG Base Excess ABG Hemoglobin Oxyhemoglobin Sodium Potassium Chloride Carbon Dioxide BUN 95 H Creatinine 2.9 H Glucose 233 H POC Glucose 206 H Hemoglobin A1c Lactic Acid Calcium Phosphorus Magnesium Ferritin AST ALT Alkaline Phosphatase Lactate Dehydrogenase Troponin T C-Reactive Protein Total Protein Albumin LDL Cholesterol Direct Urine Creatinine Urine Total Protein Salicylates Acetaminophen Crossmatch 11/06/21 11/07/21 11/07/21 22:56 05:06 06:30 WBC RBC Hgb Hct MCH RDW Plt Count Lymph % (Auto) [place] % (Auto) Lymph # (Auto) [place]key # (Auto) Seg Neutrophils % Seg Neuts % (Manual) Lymphocytes % (Manual) Monocytes % (Manual) Basophils % (Manual) Nucleated RBC % Seg Neutrophils # Seg Neutrophils # Man Lymphocytes # (Manual) Monocytes # (Manual) Eosinophils # (Manual) Basophils # (Manual) PT INR APTT D-Dimer Heparin Anti-Xa Level ABG pH ABG pO2 ABG HCO3 ABG O2 Saturation ABG Base Excess ABG Hemoglobin Oxyhemoglobin Sodium 146 H Potassium Chloride Carbon Dioxide BUN 98 H Creatinine 2.8 H Glucose 202 H POC Glucose 215 H 172 H Hemoglobin A1c Lactic Acid Calcium Phosphorus 4.90 H D Magnesium 2.90 H Ferritin AST ALT Alkaline Phosphatase Lactate Dehydrogenase Troponin T C-Reactive Protein Total Protein Albumin LDL Cholesterol Direct Urine Creatinine Urine Total Protein Salicylates Acetaminophen Crossmatch 11/07/21 11/07/21 11/07/21 06:30 11:26 12:15 WBC 16.0 H RBC 3.06 L Hgb 8.2 L Hct 26.1 L MCH 27 L RDW 16.2 H Plt Count Lymph % (Auto) [place]key % (Auto) Lymph # (Auto) [place]key # (Auto) Seg Neutrophils % Seg Neuts % (Manual) 77.0 H Lymphocytes % (Manual) 11.0 L Monocytes % (Manual) Basophils % (Manual) Nucleated RBC % 2.0 H Seg Neutrophils # Seg Neutrophils # Man 12.3 H Lymphocytes # (Manual) Monocytes # (Manual) Eosinophils # (Manual) Basophils # (Manual) PT INR APTT D-Dimer Heparin Anti-Xa Level ABG pH 7.298 L ABG pO2 73.0 L ABG HCO3 33.3 H ABG O2 Saturation 94.4 L ABG Base Excess 5.8 H ABG Hemoglobin 8.2 L Oxyhemoglobin 92.7 L Sodium Potassium Chloride Carbon Dioxide BUN Creatinine Glucose POC Glucose 179 H Hemoglobin A1c Lactic Acid Calcium Phosphorus Magnesium Ferritin AST ALT Alkaline Phosphatase Lactate Dehydrogenase Troponin T C-Reactive Protein Total Protein Albumin LDL Cholesterol Direct Urine Creatinine Urine Total Protein Salicylates Acetaminophen Crossmatch 11/07/21 11/07/21 11/07/21 17:57 22:16 23:49 WBC RBC Hgb Hct MCH RDW Plt Count Lymph % (Auto) [place]key % (Auto) Lymph # (Auto) [place]key # (Auto) Seg Neutrophils % Seg Neuts % (Manual) Lymphocytes % (Manual) Monocytes % (Manual) Basophils % (Manual) Nucleated RBC % Seg Neutrophils # Seg Neutrophils # Man Lymphocytes # (Manual) Monocytes # (Manual) Eosinophils # (Manual) Basophils # (Manual) PT INR APTT D-Dimer Heparin Anti-Xa Level ABG pH ABG pO2 ABG HCO3 ABG O2 Saturation ABG Base Excess ABG Hemoglobin Oxyhemoglobin Sodium Potassium Chloride Carbon Dioxide BUN Creatinine Glucose POC Glucose 166 H 223 H 190 H Hemoglobin A1c Lactic Acid Calcium Phosphorus Magnesium Ferritin AST ALT Alkaline Phosphatase Lactate Dehydrogenase Troponin T C-Reactive Protein Total Protein Albumin LDL Cholesterol Direct Urine Creatinine Urine Total Protein Salicylates Acetaminophen Crossmatch 11/08/21 11/08/21 11/08/21 04:20 04:20 06:16 WBC 22.1 H RBC 3.01 L Hgb 8.1 L Hct 25.6 L MCH 27 L RDW 15.4 H Plt Count Lymph % (Auto) [place]key % (Auto) Lymph # (Auto) [place]key # (Auto) Seg Neutrophils % Seg Neuts % (Manual) Lymphocytes % (Manual) Monocytes % (Manual) Basophils % (Manual) Nucleated RBC % Seg Neutrophils # Seg Neutrophils # Man Lymphocytes # (Manual) Monocytes # (Manual) Eosinophils # (Manual) Basophils # (Manual) PT INR APTT D-Dimer Heparin Anti-Xa Level ABG pH ABG pO2 ABG HCO3 ABG O2 Saturation ABG Base Excess ABG Hemoglobin Oxyhemoglobin Sodium 151 H Potassium 3.1 L D Chloride 107.3 H Carbon Dioxide 31 H BUN 82 H Creatinine 1.8 H Glucose 232 H POC Glucose 198 H Hemoglobin A1c Lactic Acid Calcium 8.1 L Phosphorus Magnesium Ferritin AST ALT Alkaline Phosphatase Lactate Dehydrogenase Troponin T C-Reactive Protein Total Protein Albumin LDL Cholesterol Direct Urine Creatinine Urine Total Protein Salicylates Acetaminophen Crossmatch 11/08/21 11/08/21 11/08/21 11:38 12:00 18:29 WBC RBC Hgb Hct MCH RDW Plt Count Lymph % (Auto) [place] % (Auto) Lymph # (Auto) [place]key # (Auto) Seg Neutrophils % Seg Neuts % (Manual) Lymphocytes % (Manual) Monocytes % (Manual) Basophils % (Manual) Nucleated RBC % Seg Neutrophils # Seg Neutrophils # Man Lymphocytes # (Manual) Monocytes # (Manual) Eosinophils # (Manual) Basophils # (Manual) PT INR APTT D-Dimer Heparin Anti-Xa Level ABG pH ABG pO2 ABG HCO3 ABG O2 Saturation ABG Base Excess ABG Hemoglobin Oxyhemoglobin Sodium Potassium 3.0 L Chloride Carbon Dioxide BUN Creatinine Glucose POC Glucose 190 H 211 H Hemoglobin A1c Lactic Acid Calcium Phosphorus Magnesium Ferritin AST ALT Alkaline Phosphatase Lactate Dehydrogenase Troponin T C-Reactive Protein Total Protein Albumin LDL Cholesterol Direct Urine Creatinine Urine Total Protein Salicylates Acetaminophen Crossmatch 11/08/21 11/08/21 11/09/21 21:34 21:40 00:36 WBC RBC Hgb Hct MCH RDW Plt Count Lymph % (Auto) [place]key % (Auto) Lymph # (Auto) [place]key # (Auto) Seg Neutrophils % Seg Neuts % (Manual) Lymphocytes % (Manual) Monocytes % (Manual) Basophils % (Manual) Nucleated RBC % Seg Neutrophils # Seg Neutrophils # Man Lymphocytes # (Manual) Monocytes # (Manual) Eosinophils # (Manual) Basophils # (Manual) PT INR APTT D-Dimer Heparin Anti-Xa Level ABG pH ABG pO2 ABG HCO3 ABG O2 Saturation ABG Base Excess ABG Hemoglobin Oxyhemoglobin Sodium 148 H Potassium 2.8 L* Chloride Carbon Dioxide 31 H BUN 68 H Creatinine 1.5 H Glucose 191 H POC Glucose 194 H 140 H Hemoglobin A1c Lactic Acid Calcium 8.2 L Phosphorus Magnesium Ferritin AST ALT Alkaline Phosphatase Lactate Dehydrogenase Troponin T C-Reactive Protein Total Protein Albumin LDL Cholesterol Direct Urine Creatinine Urine Total Protein Salicylates Acetaminophen Crossmatch 11/09/21 11/09/21 11/09/21 04:51 04:51 04:51 WBC 27.6 H RBC 3.18 L Hgb 8.4 L Hct 26.6 L MCH 27 L RDW 15.3 H Plt Count Lymph % (Auto) [place]key % (Auto) Lymph # (Auto) [place]key # (Auto) Seg Neutrophils % Seg Neuts % (Manual) Lymphocytes % (Manual) Monocytes % (Manual) Basophils % (Manual) Nucleated RBC % Seg Neutrophils # Seg Neutrophils # Man Lymphocytes # (Manual) Monocytes # (Manual) Eosinophils # (Manual) Basophils # (Manual) PT INR APTT D-Dimer Heparin Anti-Xa Level 0.18 L ABG pH ABG pO2 ABG HCO3 ABG O2 Saturation ABG Base Excess ABG Hemoglobin Oxyhemoglobin Sodium 148 H Potassium 2.7 L* Chloride Carbon Dioxide BUN 59 H Creatinine 1.4 H Glucose 143 H POC Glucose Hemoglobin A1c Lactic Acid Calcium 8.3 L Phosphorus Magnesium Ferritin AST ALT Alkaline Phosphatase Lactate Dehydrogenase Troponin T C-Reactive Protein Total Protein Albumin LDL Cholesterol Direct Urine Creatinine Urine Total Protein Salicylates Acetaminophen Crossmatch 11/09/21 11/09/21 11/09/21 05:52 08:45 11:00 WBC RBC Hgb Hct MCH RDW Plt Count Lymph % (Auto) [place]key % (Auto) Lymph # (Auto) [place]key # (Auto) Seg Neutrophils % Seg Neuts % (Manual) Lymphocytes % (Manual) Monocytes % (Manual) Basophils % (Manual) Nucleated RBC % Seg Neutrophils # Seg Neutrophils # Man Lymphocytes # (Manual) Monocytes # (Manual) Eosinophils # (Manual) Basophils # (Manual) PT INR APTT D-Dimer Heparin Anti-Xa Level ABG pH ABG pO2 73.2 L ABG HCO3 33.8 H ABG O2 Saturation ABG Base Excess 8.7 H ABG Hemoglobin 8.5 L Oxyhemoglobin 94.1 L Sodium Potassium Chloride Carbon Dioxide BUN Creatinine Glucose POC Glucose 166 H 136 H Hemoglobin A1c Lactic Acid Calcium Phosphorus Magnesium Ferritin AST ALT Alkaline Phosphatase Lactate Dehydrogenase Troponin T C-Reactive Protein Total Protein Albumin LDL Cholesterol Direct Urine Creatinine Urine Total Protein Salicylates Acetaminophen Crossmatch 11/09/21 11/09/21 11/09/21 15:48 16:10 20:31 WBC RBC Hgb Hct MCH RDW Plt Count Lymph % (Auto) [place] % (Auto) Lymph # (Auto) [place]key # (Auto) Seg Neutrophils % Seg Neuts % (Manual) Lymphocytes % (Manual) Monocytes % (Manual) Basophils % (Manual) Nucleated RBC % Seg Neutrophils # Seg Neutrophils # Man Lymphocytes # (Manual) Monocytes # (Manual) Eosinophils # (Manual) Basophils # (Manual) PT INR APTT D-Dimer Heparin Anti-Xa Level ABG pH ABG pO2 ABG HCO3 ABG O2 Saturation ABG Base Excess ABG Hemoglobin Oxyhemoglobin Sodium Potassium 2.8 L* Chloride Carbon Dioxide 31 H BUN 53 H Creatinine 1.3 H Glucose 208 H POC Glucose 203 H 166 H Hemoglobin A1c Lactic Acid Calcium 7.9 L Phosphorus Magnesium Ferritin AST ALT Alkaline Phosphatase Lactate Dehydrogenase Troponin T C-Reactive Protein Total Protein Albumin LDL Cholesterol Direct Urine Creatinine Urine Total Protein Salicylates Acetaminophen Crossmatch 11/09/21 11/09/21 11/09/21 21:30 23:16 Unknown WBC RBC Hgb Hct MCH RDW Plt Count Lymph % (Auto) [place]key % (Auto) Lymph # (Auto) [place]key # (Auto) Seg Neutrophils % Seg Neuts % (Manual) Lymphocytes % (Manual) Monocytes % (Manual) Basophils % (Manual) Nucleated RBC % Seg Neutrophils # Seg Neutrophils # Man Lymphocytes # (Manual) Monocytes # (Manual) Eosinophils # (Manual) Basophils # (Manual) PT INR APTT D-Dimer Heparin Anti-Xa Level 0.24 L ABG pH ABG pO2 ABG HCO3 ABG O2 Saturation ABG Base Excess ABG Hemoglobin Oxyhemoglobin Sodium Potassium Chloride Carbon Dioxide BUN 52 H Creatinine 1.4 H Glucose 185 H POC Glucose 172 H Hemoglobin A1c Lactic Acid Calcium 7.8 L Phosphorus Magnesium Ferritin AST ALT Alkaline Phosphatase Lactate Dehydrogenase Troponin T C-Reactive Protein Total Protein Albumin LDL Cholesterol Direct Urine Creatinine Urine Total Protein Salicylates Acetaminophen Crossmatch 11/10/21 11/10/21 11/10/21 02:00 04:17 04:17 WBC 24.5 H RBC 2.75 L Hgb 7.5 L Hct 22.9 L MCH 27 L RDW Plt Count Lymph % (Auto) [place]key % (Auto) Lymph # (Auto) [place]key # (Auto) Seg Neutrophils % Seg Neuts % (Manual) Lymphocytes % (Manual) Monocytes % (Manual) Basophils % (Manual) Nucleated RBC % Seg Neutrophils # Seg Neutrophils # Man Lymphocytes # (Manual) Monocytes # (Manual) Eosinophils # (Manual) Basophils # (Manual) PT INR APTT D-Dimer Heparin Anti-Xa Level 0.26 L ABG pH ABG pO2 ABG HCO3 ABG O2 Saturation ABG Base Excess ABG Hemoglobin Oxyhemoglobin Sodium Potassium 2.9 L* Chloride Carbon Dioxide 35 H BUN 48 H Creatinine Glucose 212 H POC Glucose Hemoglobin A1c Lactic Acid Calcium 8.1 L Phosphorus Magnesium Ferritin AST ALT Alkaline Phosphatase Lactate Dehydrogenase Troponin T C-Reactive Protein Total Protein Albumin LDL Cholesterol Direct Urine Creatinine Urine Total Protein Salicylates Acetaminophen Crossmatch 11/10/21 11/10/21 11/10/21 05:01 08:39 11:03 WBC RBC Hgb Hct MCH RDW Plt Count Lymph % (Auto) [place] % (Auto) Lymph # (Auto) [place]key # (Auto) Seg Neutrophils % Seg Neuts % (Manual) Lymphocytes % (Manual) Monocytes % (Manual) Basophils % (Manual) Nucleated RBC % Seg Neutrophils # Seg Neutrophils # Man Lymphocytes # (Manual) Monocytes # (Manual) Eosinophils # (Manual) Basophils # (Manual) PT INR APTT D-Dimer Heparin Anti-Xa Level 0.12 L ABG pH ABG pO2 ABG HCO3 ABG O2 Saturation ABG Base Excess ABG Hemoglobin Oxyhemoglobin Sodium Potassium Chloride Carbon Dioxide BUN Creatinine Glucose POC Glucose 203 H 152 H Hemoglobin A1c Lactic Acid Calcium Phosphorus Magnesium Ferritin AST ALT Alkaline Phosphatase Lactate Dehydrogenase Troponin T C-Reactive Protein Total Protein Albumin LDL Cholesterol Direct Urine Creatinine Urine Total Protein Salicylates Acetaminophen Crossmatch 11/10/21 11/10/21 11/10/21 12:45 15:43 21:05 WBC RBC Hgb Hct MCH RDW Plt Count Lymph % (Auto) [place]key % (Auto) Lymph # (Auto) [place]key # (Auto) Seg Neutrophils % Seg Neuts % (Manual) Lymphocytes % (Manual) Monocytes % (Manual) Basophils % (Manual) Nucleated RBC % Seg Neutrophils # Seg Neutrophils # Man Lymphocytes # (Manual) Monocytes # (Manual) Eosinophils # (Manual) Basophils # (Manual) PT INR APTT D-Dimer Heparin Anti-Xa Level ABG pH ABG pO2 ABG HCO3 ABG O2 Saturation ABG Base Excess ABG Hemoglobin Oxyhemoglobin Sodium 146 H Potassium 3.3 L Chloride Carbon Dioxide 31 H BUN 43 H Creatinine Glucose 155 H POC Glucose 139 H 139 H Hemoglobin A1c Lactic Acid Calcium 8.3 L Phosphorus Magnesium Ferritin AST ALT Alkaline Phosphatase Lactate Dehydrogenase Troponin T C-Reactive Protein Total Protein Albumin LDL Cholesterol Direct Urine Creatinine Urine Total Protein Salicylates Acetaminophen Crossmatch 11/10/21 11/11/21 11/11/21 23:25 03:49 03:49 WBC 22.1 H RBC 2.69 L Hgb 7.2 L Hct 22.7 L MCH 27 L RDW Plt Count Lymph % (Auto) [place]key % (Auto) Lymph # (Auto) [place]key # (Auto) Seg Neutrophils % Seg Neuts % (Manual) Lymphocytes % (Manual) Monocytes % (Manual) Basophils % (Manual) Nucleated RBC % Seg Neutrophils # Seg Neutrophils # Man Lymphocytes # (Manual) Monocytes # (Manual) Eosinophils # (Manual) Basophils # (Manual) PT INR APTT D-Dimer Heparin Anti-Xa Level ABG pH ABG pO2 ABG HCO3 ABG O2 Saturation ABG Base Excess ABG Hemoglobin Oxyhemoglobin Sodium Potassium Chloride Carbon Dioxide 32 H BUN 44 H Creatinine 1.3 H Glucose 173 H POC Glucose 146 H Hemoglobin A1c Lactic Acid Calcium Phosphorus Magnesium Ferritin AST ALT Alkaline Phosphatase Lactate Dehydrogenase Troponin T C-Reactive Protein Total Protein Albumin LDL Cholesterol Direct Urine Creatinine Urine Total Protein Salicylates Acetaminophen Crossmatch 11/11/21 11/11/21 11/11/21 05:03 10:50 11:32 WBC RBC Hgb Hct MCH RDW Plt Count Lymph % (Auto) [place]key % (Auto) Lymph # (Auto) [place]key # (Auto) Seg Neutrophils % Seg Neuts % (Manual) Lymphocytes % (Manual) Monocytes % (Manual) Basophils % (Manual) Nucleated RBC % Seg Neutrophils # Seg Neutrophils # Man Lymphocytes # (Manual) Monocytes # (Manual) Eosinophils # (Manual) Basophils # (Manual) PT INR APTT D-Dimer Heparin Anti-Xa Level ABG pH ABG pO2 ABG HCO3 ABG O2 Saturation ABG Base Excess ABG Hemoglobin Oxyhemoglobin Sodium Potassium Chloride Carbon Dioxide BUN Creatinine Glucose POC Glucose 152 H 129 H 133 H Hemoglobin A1c Lactic Acid Calcium Phosphorus Magnesium Ferritin AST ALT Alkaline Phosphatase Lactate Dehydrogenase Troponin T C-Reactive Protein Total Protein Albumin LDL Cholesterol Direct Urine Creatinine Urine Total Protein Salicylates Acetaminophen Crossmatch 11/11/21 11/11/21 11/11/21 13:53 16:31 17:13 WBC RBC Hgb Hct MCH RDW Plt Count Lymph % (Auto) [place] % (Auto) Lymph # (Auto) [place] # (Auto) Seg Neutrophils % Seg Neuts % (Manual) Lymphocytes % (Manual) Monocytes % (Manual) Basophils % (Manual) Nucleated RBC % Seg Neutrophils # Seg Neutrophils # Man Lymphocytes # (Manual) Monocytes # (Manual) Eosinophils # (Manual) Basophils # (Manual) PT INR APTT D-Dimer Heparin Anti-Xa Level ABG pH 7.475 H ABG pO2 64.1 L ABG HCO3 32.4 H ABG O2 Saturation ABG Base Excess 8.0 H ABG Hemoglobin 7.6 L Oxyhemoglobin 94.0 L Sodium Potassium Chloride Carbon Dioxide BUN Creatinine Glucose POC Glucose 116 H 125 H Hemoglobin A1c Lactic Acid Calcium Phosphorus Magnesium Ferritin AST ALT Alkaline Phosphatase Lactate Dehydrogenase Troponin T C-Reactive Protein Total Protein Albumin LDL Cholesterol Direct Urine Creatinine Urine Total Protein Salicylates Acetaminophen Crossmatch 11/11/21 11/11/21 11/12/21 20:40 23:35 03:30 WBC 17.7 H RBC 2.37 L Hgb 6.3 L Hct 20.0 L MCH 27 L RDW 15.5 H Plt Count Lymph % (Auto) [place] % (Auto) Lymph # (Auto) [place] # (Auto) Seg Neutrophils % Seg Neuts % (Manual) Lymphocytes % (Manual) Monocytes % (Manual) Basophils % (Manual) Nucleated RBC % Seg Neutrophils # Seg Neutrophils # Man Lymphocytes # (Manual) Monocytes # (Manual) Eosinophils # (Manual) Basophils # (Manual) PT INR APTT D-Dimer Heparin Anti-Xa Level 0.26 L ABG pH ABG pO2 ABG HCO3 ABG O2 Saturation ABG Base Excess ABG Hemoglobin Oxyhemoglobin Sodium Potassium Chloride Carbon Dioxide BUN Creatinine Glucose POC Glucose 118 H Hemoglobin A1c Lactic Acid Calcium Phosphorus Magnesium Ferritin AST ALT Alkaline Phosphatase Lactate Dehydrogenase Troponin T C-Reactive Protein Total Protein Albumin LDL Cholesterol Direct Urine Creatinine Urine Total Protein Salicylates Acetaminophen Crossmatch 11/12/21 11/12/21 11/12/21 03:30 04:15 11:53 WBC RBC Hgb Hct MCH RDW Plt Count Lymph % (Auto) [place] % (Auto) Lymph # (Auto) [place] # (Auto) Seg Neutrophils % Seg Neuts % (Manual) Lymphocytes % (Manual) Monocytes % (Manual) Basophils % (Manual) Nucleated RBC % Seg Neutrophils # Seg Neutrophils # Man Lymphocytes # (Manual) Monocytes # (Manual) Eosinophils # (Manual) Basophils # (Manual) PT INR APTT D-Dimer Heparin Anti-Xa Level ABG pH ABG pO2 ABG HCO3 ABG O2 Saturation ABG Base Excess ABG Hemoglobin Oxyhemoglobin Sodium Potassium Chloride Carbon Dioxide 33 H BUN 38 H Creatinine 1.3 H Glucose 102 H POC Glucose 62 L Hemoglobin A1c Lactic Acid Calcium 8.2 L Phosphorus Magnesium Ferritin AST ALT Alkaline Phosphatase Lactate Dehydrogenase Troponin T C-Reactive Protein Total Protein Albumin LDL Cholesterol Direct Urine Creatinine Urine Total Protein Salicylates Acetaminophen Crossmatch See Detail 11/12/21 11/12/21 11/12/21 17:20 19:14 23:11 WBC RBC Hgb 6.2 L Hct 19.5 L* MCH RDW Plt Count Lymph % (Auto) [place] % (Auto) Lymph # (Auto) [place] # (Auto) Seg Neutrophils % Seg Neuts % (Manual) Lymphocytes % (Manual) Monocytes % (Manual) Basophils % (Manual) Nucleated RBC % Seg Neutrophils # Seg Neutrophils # Man Lymphocytes # (Manual) Monocytes # (Manual) Eosinophils # (Manual) Basophils # (Manual) PT INR APTT D-Dimer Heparin Anti-Xa Level ABG pH ABG pO2 ABG HCO3 ABG O2 Saturation ABG Base Excess ABG Hemoglobin Oxyhemoglobin Sodium Potassium Chloride Carbon Dioxide BUN Creatinine Glucose POC Glucose 115 H 131 H Hemoglobin A1c Lactic Acid Calcium Phosphorus Magnesium Ferritin AST ALT Alkaline Phosphatase Lactate Dehydrogenase Troponin T C-Reactive Protein Total Protein Albumin LDL Cholesterol Direct Urine Creatinine Urine Total Protein Salicylates Acetaminophen Crossmatch 11/13/21 11/13/21 11/13/21 00:13 04:17 04:17 WBC 23.8 H RBC 2.84 L Hgb 7.4 L 7.8 L Hct 23.3 L 24.9 L MCH 27 L RDW 15.4 H Plt Count Lymph % (Auto) [place] % (Auto) Lymph # (Auto) [place] # (Auto) Seg Neutrophils % Seg Neuts % (Manual) Lymphocytes % (Manual) Monocytes % (Manual) Basophils % (Manual) Nucleated RBC % Seg Neutrophils # Seg Neutrophils # Man Lymphocytes # (Manual) Monocytes # (Manual) Eosinophils # (Manual) Basophils # (Manual) PT INR APTT D-Dimer Heparin Anti-Xa Level ABG pH ABG pO2 ABG HCO3 ABG O2 Saturation ABG Base Excess ABG Hemoglobin Oxyhemoglobin Sodium 146 H Potassium Chloride Carbon Dioxide BUN 44 H Creatinine 1.6 H Glucose 144 H POC Glucose Hemoglobin A1c Lactic Acid Calcium 7.9 L Phosphorus 5.10 H D Magnesium Ferritin AST ALT Alkaline Phosphatase Lactate Dehydrogenase Troponin T C-Reactive Protein Total Protein Albumin LDL Cholesterol Direct Urine Creatinine Urine Total Protein Salicylates Acetaminophen Crossmatch 11/13/21 11/13/21 11/13/21 05:52 10:54 15:57 WBC RBC Hgb Hct MCH RDW Plt Count Lymph % (Auto) [place] % (Auto) Lymph # (Auto) [place] # (Auto) Seg Neutrophils % Seg Neuts % (Manual) Lymphocytes % (Manual) Monocytes % (Manual) Basophils % (Manual) Nucleated RBC % Seg Neutrophils # Seg Neutrophils # Man Lymphocytes # (Manual) Monocytes # (Manual) Eosinophils # (Manual) Basophils # (Manual) PT INR APTT D-Dimer Heparin Anti-Xa Level ABG pH ABG pO2 ABG HCO3 ABG O2 Saturation ABG Base Excess ABG Hemoglobin Oxyhemoglobin Sodium Potassium Chloride Carbon Dioxide BUN Creatinine Glucose POC Glucose 123 H 147 H 207 H Hemoglobin A1c Lactic Acid Calcium Phosphorus Magnesium Ferritin AST ALT Alkaline Phosphatase Lactate Dehydrogenase Troponin T C-Reactive Protein Total Protein Albumin LDL Cholesterol Direct Urine Creatinine Urine Total Protein Salicylates Acetaminophen Crossmatch 11/13/21 11/13/21 11/14/21 16:01 23:18 04:55 WBC 23.9 H RBC 2.86 L Hgb 6.5 L 8.3 L Hct 20.3 L 24.5 L MCH RDW Plt Count Lymph % (Auto) [place] % (Auto) Lymph # (Auto) [place] # (Auto) Seg Neutrophils % Seg Neuts % (Manual) Lymphocytes % (Manual) Monocytes % (Manual) Basophils % (Manual) Nucleated RBC % Seg Neutrophils # Seg Neutrophils # Man Lymphocytes # (Manual) Monocytes # (Manual) Eosinophils # (Manual) Basophils # (Manual) PT INR APTT D-Dimer Heparin Anti-Xa Level ABG pH ABG pO2 ABG HCO3 ABG O2 Saturation ABG Base Excess ABG Hemoglobin Oxyhemoglobin Sodium Potassium Chloride Carbon Dioxide BUN Creatinine Glucose POC Glucose 209 H Hemoglobin A1c Lactic Acid Calcium Phosphorus Magnesium Ferritin AST ALT Alkaline Phosphatase Lactate Dehydrogenase Troponin T C-Reactive Protein Total Protein Albumin LDL Cholesterol Direct Urine Creatinine Urine Total Protein Salicylates Acetaminophen Crossmatch 11/14/21 11/14/21 11/14/21 04:55 05:09 11:35 WBC RBC Hgb Hct MCH RDW Plt Count Lymph % (Auto) [place] % (Auto) Lymph # (Auto) [place] # (Auto) Seg Neutrophils % Seg Neuts % (Manual) Lymphocytes % (Manual) Monocytes % (Manual) Basophils % (Manual) Nucleated RBC % Seg Neutrophils # Seg Neutrophils # Man Lymphocytes # (Manual) Monocytes # (Manual) Eosinophils # (Manual) Basophils # (Manual) PT INR APTT D-Dimer Heparin Anti-Xa Level ABG pH ABG pO2 ABG HCO3 ABG O2 Saturation ABG Base Excess ABG Hemoglobin Oxyhemoglobin Sodium 148 H Potassium Chloride 109.0 H Carbon Dioxide BUN 42 H Creatinine 1.6 H Glucose 184 H POC Glucose 169 H 154 H Hemoglobin A1c Lactic Acid Calcium 8.0 L Phosphorus Magnesium Ferritin AST ALT Alkaline Phosphatase Lactate Dehydrogenase Troponin T C-Reactive Protein Total Protein Albumin LDL Cholesterol Direct Urine Creatinine Urine Total Protein Salicylates Acetaminophen Crossmatch 11/14/21 11/14/21 11/15/21 16:57 23:11 04:36 WBC RBC Hgb Hct MCH RDW Plt Count Lymph % (Auto) [place] % (Auto) Lymph # (Auto) [place] # (Auto) Seg Neutrophils % Seg Neuts % (Manual) Lymphocytes % (Manual) Monocytes % (Manual) Basophils % (Manual) Nucleated RBC % Seg Neutrophils # Seg Neutrophils # Man Lymphocytes # (Manual) Monocytes # (Manual) Eosinophils # (Manual) Basophils # (Manual) PT INR APTT D-Dimer Heparin Anti-Xa Level ABG pH ABG pO2 ABG HCO3 ABG O2 Saturation ABG Base Excess ABG Hemoglobin Oxyhemoglobin Sodium 151 H Potassium Chloride 111.2 H Carbon Dioxide BUN 36 H Creatinine 1.3 H Glucose 136 H POC Glucose 124 H 118 H Hemoglobin A1c Lactic Acid Calcium 8.1 L Phosphorus Magnesium Ferritin AST ALT Alkaline Phosphatase Lactate Dehydrogenase Troponin T C-Reactive Protein Total Protein Albumin LDL Cholesterol Direct Urine Creatinine Urine Total Protein Salicylates Acetaminophen Crossmatch 11/15/21 11/15/21 11/16/21 11:18 21:49 00:15 WBC RBC Hgb Hct MCH RDW Plt Count Lymph % (Auto) [place] % (Auto) Lymph # (Auto) [place] # (Auto) Seg Neutrophils % Seg Neuts % (Manual) Lymphocytes % (Manual) Monocytes % (Manual) Basophils % (Manual) Nucleated RBC % Seg Neutrophils # Seg Neutrophils # Man Lymphocytes # (Manual) Monocytes # (Manual) Eosinophils # (Manual) Basophils # (Manual) PT INR APTT D-Dimer Heparin Anti-Xa Level ABG pH ABG pO2 ABG HCO3 ABG O2 Saturation ABG Base Excess ABG Hemoglobin Oxyhemoglobin Sodium Potassium Chloride Carbon Dioxide BUN Creatinine Glucose POC Glucose 154 H 154 H 146 H Hemoglobin A1c Lactic Acid Calcium Phosphorus Magnesium Ferritin AST ALT Alkaline Phosphatase Lactate Dehydrogenase Troponin T C-Reactive Protein Total Protein Albumin LDL Cholesterol Direct Urine Creatinine Urine Total Protein Salicylates Acetaminophen Crossmatch 11/16/21 11/16/21 11/16/21 05:11 05:11 05:37 WBC 18.2 H RBC 2.92 L Hgb 8.3 L Hct 26.1 L MCH RDW 15.8 H Plt Count Lymph % (Auto) 6.3 L [place]key % (Auto) 10.2 H Lymph # (Auto) [place]key # (Auto) 1.9 H Seg Neutrophils % 81.7 H Seg Neuts % (Manual) Lymphocytes % (Manual) Monocytes % (Manual) Basophils % (Manual) Nucleated RBC % Seg Neutrophils # 14.9 H Seg Neutrophils # Man Lymphocytes # (Manual) Monocytes # (Manual) Eosinophils # (Manual) Basophils # (Manual) PT INR APTT D-Dimer Heparin Anti-Xa Level ABG pH ABG pO2 ABG HCO3 ABG O2 Saturation ABG Base Excess ABG Hemoglobin Oxyhemoglobin Sodium 146 H Potassium Chloride 108.0 H Carbon Dioxide BUN 25 H Creatinine Glucose 123 H POC Glucose 109 H Hemoglobin A1c Lactic Acid Calcium 7.8 L Phosphorus Magnesium Ferritin AST ALT Alkaline Phosphatase Lactate Dehydrogenase Troponin T C-Reactive Protein Total Protein Albumin LDL Cholesterol Direct Urine Creatinine Urine Total Protein Salicylates Acetaminophen Crossmatch 11/16/21 11/16/21 11/17/21 11:22 23:55 04:33 WBC RBC Hgb Hct MCH RDW Plt Count Lymph % (Auto) [place] % (Auto) Lymph # (Auto) [place] # (Auto) Seg Neutrophils % Seg Neuts % (Manual) Lymphocytes % (Manual) Monocytes % (Manual) Basophils % (Manual) Nucleated RBC % Seg Neutrophils # Seg Neutrophils # Man Lymphocytes # (Manual) Monocytes # (Manual) Eosinophils # (Manual) Basophils # (Manual) PT INR APTT D-Dimer Heparin Anti-Xa Level ABG pH ABG pO2 ABG HCO3 ABG O2 Saturation ABG Base Excess ABG Hemoglobin Oxyhemoglobin Sodium Potassium Chloride Carbon Dioxide BUN 20 H Creatinine Glucose POC Glucose 136 H 113 H Hemoglobin A1c Lactic Acid Calcium 7.5 L Phosphorus Magnesium Ferritin AST ALT Alkaline Phosphatase Lactate Dehydrogenase Troponin T C-Reactive Protein Total Protein Albumin LDL Cholesterol Direct Urine Creatinine Urine Total Protein Salicylates Acetaminophen Crossmatch 11/17/21 11/18/21 11/18/21 23:22 04:53 04:53 WBC 13.0 H RBC 2.99 L Hgb 8.5 L Hct 26.4 L MCH RDW Plt Count Lymph % (Auto) 9.5 L [place]key % (Auto) 9.8 H Lymph # (Auto) [place]key # (Auto) 1.3 H Seg Neutrophils % 78.3 H Seg Neuts % (Manual) Lymphocytes % (Manual) Monocytes % (Manual) Basophils % (Manual) Nucleated RBC % Seg Neutrophils # 10.2 H Seg Neutrophils # Man Lymphocytes # (Manual) Monocytes # (Manual) Eosinophils # (Manual) Basophils # (Manual) PT INR APTT D-Dimer Heparin Anti-Xa Level ABG pH ABG pO2 ABG HCO3 ABG O2 Saturation ABG Base Excess ABG Hemoglobin Oxyhemoglobin Sodium Potassium Chloride Carbon Dioxide BUN 18 H Creatinine Glucose 106 H POC Glucose 112 H Hemoglobin A1c Lactic Acid Calcium 8.1 L Phosphorus Magnesium Ferritin AST ALT Alkaline Phosphatase Lactate Dehydrogenase Troponin T C-Reactive Protein Total Protein Albumin LDL Cholesterol Direct Urine Creatinine Urine Total Protein Salicylates Acetaminophen Crossmatch 11/18/21 11/18/21 11/19/21 11:35 17:42 14:38 WBC RBC Hgb Hct MCH RDW Plt Count Lymph % (Auto) [place] % (Auto) Lymph # (Auto) [place] # (Auto) Seg Neutrophils % Seg Neuts % (Manual) Lymphocytes % (Manual) Monocytes % (Manual) Basophils % (Manual) Nucleated RBC % Seg Neutrophils # Seg Neutrophils # Man Lymphocytes # (Manual) Monocytes # (Manual) Eosinophils # (Manual) Basophils # (Manual) PT INR APTT D-Dimer Heparin Anti-Xa Level ABG pH ABG pO2 ABG HCO3 ABG O2 Saturation ABG Base Excess ABG Hemoglobin Oxyhemoglobin Sodium Potassium Chloride 97.5 L Carbon Dioxide 31 H BUN Creatinine Glucose 146 H POC Glucose 143 H 132 H Hemoglobin A1c Lactic Acid Calcium Phosphorus Magnesium 1.60 L Ferritin AST ALT Alkaline Phosphatase Lactate Dehydrogenase Troponin T C-Reactive Protein Total Protein Albumin LDL Cholesterol Direct Urine Creatinine Urine Total Protein Salicylates Acetaminophen Crossmatch 11/19/21 11/19/21 11/20/21 16:24 23:58 07:42 WBC RBC 3.01 L Hgb 8.6 L Hct 26.7 L MCH RDW 15.4 H Plt Count Lymph % (Auto) [place] % (Auto) Lymph # (Auto) [place] # (Auto) Seg Neutrophils % Seg Neuts % (Manual) Lymphocytes % (Manual) Monocytes % (Manual) Basophils % (Manual) Nucleated RBC % Seg Neutrophils # Seg Neutrophils # Man Lymphocytes # (Manual) Monocytes # (Manual) Eosinophils # (Manual) Basophils # (Manual) PT INR APTT D-Dimer Heparin Anti-Xa Level ABG pH ABG pO2 ABG HCO3 ABG O2 Saturation ABG Base Excess ABG Hemoglobin Oxyhemoglobin Sodium Potassium Chloride Carbon Dioxide BUN Creatinine Glucose POC Glucose 129 H 125 H Hemoglobin A1c Lactic Acid Calcium Phosphorus Magnesium Ferritin AST ALT Alkaline Phosphatase Lactate Dehydrogenase Troponin T C-Reactive Protein Total Protein Albumin LDL Cholesterol Direct Urine Creatinine Urine Total Protein Salicylates Acetaminophen Crossmatch 11/20/21 11/20/21 11/20/21 07:42 11:25 22:59 WBC RBC Hgb Hct MCH RDW Plt Count Lymph % (Auto) [place] % (Auto) Lymph # (Auto) [place] # (Auto) Seg Neutrophils % Seg Neuts % (Manual) Lymphocytes % (Manual) Monocytes % (Manual) Basophils % (Manual) Nucleated RBC % Seg Neutrophils # Seg Neutrophils # Man Lymphocytes # (Manual) Monocytes # (Manual) Eosinophils # (Manual) Basophils # (Manual) PT INR APTT D-Dimer Heparin Anti-Xa Level ABG pH ABG pO2 ABG HCO3 ABG O2 Saturation ABG Base Excess ABG Hemoglobin Oxyhemoglobin Sodium Potassium Chloride Carbon Dioxide 31 H BUN Creatinine Glucose POC Glucose 116 H 113 H Hemoglobin A1c Lactic Acid Calcium Phosphorus Magnesium Ferritin AST ALT Alkaline Phosphatase Lactate Dehydrogenase Troponin T C-Reactive Protein Total Protein Albumin LDL Cholesterol Direct Urine Creatinine Urine Total Protein Salicylates Acetaminophen Crossmatch 11/21/21 11/22/21 11/22/21 10:50 05:10 16:12 WBC RBC Hgb Hct MCH RDW Plt Count Lymph % (Auto) [place] % (Auto) Lymph # (Auto) [place] # (Auto) Seg Neutrophils % Seg Neuts % (Manual) Lymphocytes % (Manual) Monocytes % (Manual) Basophils % (Manual) Nucleated RBC % Seg Neutrophils # Seg Neutrophils # Man Lymphocytes # (Manual) Monocytes # (Manual) Eosinophils # (Manual) Basophils # (Manual) PT INR APTT D-Dimer Heparin Anti-Xa Level ABG pH ABG pO2 ABG HCO3 ABG O2 Saturation ABG Base Excess ABG Hemoglobin Oxyhemoglobin Sodium Potassium Chloride Carbon Dioxide 32 H BUN Creatinine Glucose POC Glucose 156 H 110 H Hemoglobin A1c Lactic Acid Calcium 8.1 L Phosphorus Magnesium Ferritin AST ALT Alkaline Phosphatase Lactate Dehydrogenase Troponin T C-Reactive Protein Total Protein Albumin LDL Cholesterol Direct Urine Creatinine Urine Total Protein Salicylates Acetaminophen Crossmatch 11/23/21 11/23/21 11/23/21 07:18 07:18 11:45 WBC RBC 3.23 L Hgb 9.1 L Hct 28.5 L MCH RDW 15.6 H Plt Count Lymph % (Auto) [place] % (Auto) Lymph # (Auto) [place] # (Auto) Seg Neutrophils % Seg Neuts % (Manual) Lymphocytes % (Manual) Monocytes % (Manual) Basophils % (Manual) Nucleated RBC % Seg Neutrophils # Seg Neutrophils # Man Lymphocytes # (Manual) Monocytes # (Manual) Eosinophils # (Manual) Basophils # (Manual) PT INR APTT D-Dimer Heparin Anti-Xa Level ABG pH ABG pO2 ABG HCO3 ABG O2 Saturation ABG Base Excess ABG Hemoglobin Oxyhemoglobin Sodium Potassium 3.3 L Chloride 96.8 L Carbon Dioxide 32 H BUN Creatinine Glucose POC Glucose 140 H Hemoglobin A1c Lactic Acid Calcium Phosphorus Magnesium Ferritin AST ALT Alkaline Phosphatase Lactate Dehydrogenase Troponin T C-Reactive Protein Total Protein Albumin LDL Cholesterol Direct Urine Creatinine Urine Total Protein Salicylates Acetaminophen Crossmatch 11/23/21 11/23/21 11/24/21 16:40 23:45 07:19 WBC RBC 3.12 L Hgb 9.3 L Hct 27.2 L MCH RDW 16.0 H Plt Count Lymph % (Auto) 10.3 L [place]key % (Auto) 10.0 H Lymph # (Auto) 1.1 L [place]key # (Auto) 1.1 H Seg Neutrophils % 75.2 H Seg Neuts % (Manual) Lymphocytes % (Manual) Monocytes % (Manual) Basophils % (Manual) Nucleated RBC % Seg Neutrophils # 7.9 H Seg Neutrophils # Man Lymphocytes # (Manual) Monocytes # (Manual) Eosinophils # (Manual) Basophils # (Manual) PT INR APTT D-Dimer Heparin Anti-Xa Level ABG pH ABG pO2 ABG HCO3 ABG O2 Saturation ABG Base Excess ABG Hemoglobin Oxyhemoglobin Sodium Potassium Chloride Carbon Dioxide BUN Creatinine Glucose POC Glucose 140 H 138 H Hemoglobin A1c Lactic Acid Calcium Phosphorus Magnesium Ferritin AST ALT Alkaline Phosphatase Lactate Dehydrogenase Troponin T C-Reactive Protein Total Protein Albumin LDL Cholesterol Direct Urine Creatinine Urine Total Protein Salicylates Acetaminophen Crossmatch 11/24/21 11/24/21 11/24/21 07:19 11:49 15:54 WBC RBC Hgb Hct MCH RDW Plt Count Lymph % (Auto) [place] % (Auto) Lymph # (Auto) [place] # (Auto) Seg Neutrophils % Seg Neuts % (Manual) Lymphocytes % (Manual) Monocytes % (Manual) Basophils % (Manual) Nucleated RBC % Seg Neutrophils # Seg Neutrophils # Man Lymphocytes # (Manual) Monocytes # (Manual) Eosinophils # (Manual) Basophils # (Manual) PT INR APTT D-Dimer Heparin Anti-Xa Level ABG pH ABG pO2 ABG HCO3 ABG O2 Saturation ABG Base Excess ABG Hemoglobin Oxyhemoglobin Sodium Potassium 3.2 L Chloride 96.7 L Carbon Dioxide BUN Creatinine Glucose 125 H POC Glucose 118 H 106 H Hemoglobin A1c Lactic Acid Calcium Phosphorus Magnesium Ferritin AST ALT Alkaline Phosphatase Lactate Dehydrogenase Troponin T C-Reactive Protein Total Protein Albumin LDL Cholesterol Direct Urine Creatinine Urine Total Protein Salicylates Acetaminophen Crossmatch 11/25/21 11/25/21 11/25/21 11:49 15:41 20:51 WBC RBC Hgb Hct MCH RDW Plt Count Lymph % (Auto) [place] % (Auto) Lymph # (Auto) [place] # (Auto) Seg Neutrophils % Seg Neuts % (Manual) Lymphocytes % (Manual) Monocytes % (Manual) Basophils % (Manual) Nucleated RBC % Seg Neutrophils # Seg Neutrophils # Man Lymphocytes # (Manual) Monocytes # (Manual) Eosinophils # (Manual) Basophils # (Manual) PT INR APTT D-Dimer Heparin Anti-Xa Level ABG pH ABG pO2 ABG HCO3 ABG O2 Saturation ABG Base Excess ABG Hemoglobin Oxyhemoglobin Sodium Potassium Chloride Carbon Dioxide BUN Creatinine Glucose POC Glucose 119 H 110 H 109 H Hemoglobin A1c Lactic Acid Calcium Phosphorus Magnesium Ferritin AST ALT Alkaline Phosphatase Lactate Dehydrogenase Troponin T C-Reactive Protein Total Protein Albumin LDL Cholesterol Direct Urine Creatinine Urine Total Protein Salicylates Acetaminophen Crossmatch 11/26/21 11/26/21 11/26/21 07:33 11:20 17:03 WBC RBC Hgb Hct MCH RDW Plt Count Lymph % (Auto) [place] % (Auto) Lymph # (Auto) [place]key # (Auto) Seg Neutrophils % Seg Neuts % (Manual) Lymphocytes % (Manual) Monocytes % (Manual) Basophils % (Manual) Nucleated RBC % Seg Neutrophils # Seg Neutrophils # Man Lymphocytes # (Manual) Monocytes # (Manual) Eosinophils # (Manual) Basophils # (Manual) PT INR APTT D-Dimer Heparin Anti-Xa Level ABG pH ABG pO2 ABG HCO3 ABG O2 Saturation ABG Base Excess ABG Hemoglobin Oxyhemoglobin Sodium Potassium Chloride Carbon Dioxide BUN Creatinine Glucose POC Glucose 158 H 162 H 144 H Hemoglobin A1c Lactic Acid Calcium Phosphorus Magnesium Ferritin AST ALT Alkaline Phosphatase Lactate Dehydrogenase Troponin T C-Reactive Protein Total Protein Albumin LDL Cholesterol Direct Urine Creatinine Urine Total Protein Salicylates Acetaminophen Crossmatch 11/26/21 11/27/21 11/27/21 21:51 07:44 12:20 WBC RBC Hgb Hct MCH RDW Plt Count Lymph % (Auto) [place] % (Auto) Lymph # (Auto) [place]key # (Auto) Seg Neutrophils % Seg Neuts % (Manual) Lymphocytes % (Manual) Monocytes % (Manual) Basophils % (Manual) Nucleated RBC % Seg Neutrophils # Seg Neutrophils # Man Lymphocytes # (Manual) Monocytes # (Manual) Eosinophils # (Manual) Basophils # (Manual) PT INR APTT D-Dimer Heparin Anti-Xa Level ABG pH ABG pO2 ABG HCO3 ABG O2 Saturation ABG Base Excess ABG Hemoglobin Oxyhemoglobin Sodium Potassium Chloride Carbon Dioxide BUN Creatinine Glucose POC Glucose 132 H 129 H 128 H Hemoglobin A1c Lactic Acid Calcium Phosphorus Magnesium Ferritin AST ALT Alkaline Phosphatase Lactate Dehydrogenase Troponin T C-Reactive Protein Total Protein Albumin LDL Cholesterol Direct Urine Creatinine Urine Total Protein Salicylates Acetaminophen Crossmatch 11/27/21 11/27/21 11/28/21 16:44 21:35 07:54 WBC RBC Hgb Hct MCH RDW Plt Count Lymph % (Auto) [place] % (Auto) Lymph # (Auto) [place]key # (Auto) Seg Neutrophils % Seg Neuts % (Manual) Lymphocytes % (Manual) Monocytes % (Manual) Basophils % (Manual) Nucleated RBC % Seg Neutrophils # Seg Neutrophils # Man Lymphocytes # (Manual) Monocytes # (Manual) Eosinophils # (Manual) Basophils # (Manual) PT INR APTT D-Dimer Heparin Anti-Xa Level ABG pH ABG pO2 ABG HCO3 ABG O2 Saturation ABG Base Excess ABG Hemoglobin Oxyhemoglobin Sodium Potassium Chloride Carbon Dioxide BUN Creatinine Glucose POC Glucose 126 H 131 H 124 H Hemoglobin A1c Lactic Acid Calcium Phosphorus Magnesium Ferritin AST ALT Alkaline Phosphatase Lactate Dehydrogenase Troponin T C-Reactive Protein Total Protein Albumin LDL Cholesterol Direct Urine Creatinine Urine Total Protein Salicylates Acetaminophen Crossmatch 11/28/21 11/28/21 11/28/21 11:27 11:56 16:34 WBC 12.3 H RBC 3.18 L Hgb 9.2 L Hct 27.8 L MCH RDW 16.1 H Plt Count Lymph % (Auto) 10.9 L [place] % (Auto) 13.7 H Lymph # (Auto) [place]key # (Auto) 1.7 H Seg Neutrophils % 72.2 H Seg Neuts % (Manual) Lymphocytes % (Manual) Monocytes % (Manual) Basophils % (Manual) Nucleated RBC % Seg Neutrophils # 8.9 H Seg Neutrophils # Man Lymphocytes # (Manual) Monocytes # (Manual) Eosinophils # (Manual) Basophils # (Manual) PT INR APTT D-Dimer Heparin Anti-Xa Level ABG pH ABG pO2 ABG HCO3 ABG O2 Saturation ABG Base Excess ABG Hemoglobin Oxyhemoglobin Sodium Potassium Chloride Carbon Dioxide BUN Creatinine Glucose POC Glucose 131 H 123 H Hemoglobin A1c Lactic Acid Calcium Phosphorus Magnesium Ferritin AST ALT Alkaline Phosphatase Lactate Dehydrogenase Troponin T C-Reactive Protein Total Protein Albumin LDL Cholesterol Direct Urine Creatinine Urine Total Protein Salicylates Acetaminophen Crossmatch 11/28/21 11/28/21 11/29/21 19:35 21:32 07:33 WBC RBC Hgb Hct MCH RDW Plt Count Lymph % (Auto) [place]key % (Auto) Lymph # (Auto) [place]key # (Auto) Seg Neutrophils % Seg Neuts % (Manual) Lymphocytes % (Manual) Monocytes % (Manual) Basophils % (Manual) Nucleated RBC % Seg Neutrophils # Seg Neutrophils # Man Lymphocytes # (Manual) Monocytes # (Manual) Eosinophils # (Manual) Basophils # (Manual) PT INR APTT D-Dimer Heparin Anti-Xa Level 0.12 L ABG pH ABG pO2 ABG HCO3 ABG O2 Saturation ABG Base Excess ABG Hemoglobin Oxyhemoglobin Sodium Potassium Chloride Carbon Dioxide BUN Creatinine Glucose POC Glucose 110 H 108 H Hemoglobin A1c Lactic Acid Calcium Phosphorus Magnesium Ferritin AST ALT Alkaline Phosphatase Lactate Dehydrogenase Troponin T C-Reactive Protein Total Protein Albumin LDL Cholesterol Direct Urine Creatinine Urine Total Protein Salicylates Acetaminophen Crossmatch 11/29/21 11/29/21 11/29/21 11:29 13:51 15:25 WBC 13.0 H RBC 3.41 L Hgb 9.5 L Hct 29.9 L MCH RDW 16.2 H Plt Count Lymph % (Auto) 11.1 L Sharkey % (Auto) 15.5 H Lymph # (Auto) Sharkey # (Auto) 2.0 H Seg Neutrophils % 71.8 H Seg Neuts % (Manual) Lymphocytes % (Manual) Monocytes % (Manual) Basophils % (Manual) Nucleated RBC % Seg Neutrophils # 9.3 H Seg Neutrophils # Man Lymphocytes # (Manual) Monocytes # (Manual) Eosinophils # (Manual) Basophils # (Manual) PT INR APTT D-Dimer Heparin Anti-Xa Level ABG pH ABG pO2 ABG HCO3 ABG O2 Saturation ABG Base Excess ABG Hemoglobin Oxyhemoglobin Sodium Potassium Chloride Carbon Dioxide BUN Creatinine Glucose POC Glucose 136 H 123 H Hemoglobin A1c Lactic Acid Calcium Phosphorus Magnesium Ferritin AST ALT Alkaline Phosphatase Lactate Dehydrogenase Troponin T C-Reactive Protein Total Protein Albumin LDL Cholesterol Direct Urine Creatinine Urine Total Protein Salicylates Acetaminophen Crossmatch 11/29/21 11/29/21 11/29/21 18:50 18:50 20:16 WBC RBC Hgb Hct MCH RDW Plt Count Lymph % (Auto) Sharkey % (Auto) Lymph # (Auto) Sharkey # (Auto) Seg Neutrophils % Seg Neuts % (Manual) Lymphocytes % (Manual) Monocytes % (Manual) Basophils % (Manual) Nucleated RBC % Seg Neutrophils # Seg Neutrophils # Man Lymphocytes # (Manual) Monocytes # (Manual) Eosinophils # (Manual) Basophils # (Manual) PT INR APTT D-Dimer Heparin Anti-Xa Level 0.21 L ABG pH ABG pO2 ABG HCO3 ABG O2 Saturation ABG Base Excess ABG Hemoglobin Oxyhemoglobin Sodium 126 L Potassium Chloride 86.3 L Carbon Dioxide BUN 38 H Creatinine 3.6 H Glucose 153 H POC Glucose 166 H Hemoglobin A1c Lactic Acid Calcium Phosphorus Magnesium Ferritin AST ALT Alkaline Phosphatase Lactate Dehydrogenase Troponin T C-Reactive Protein Total Protein Albumin LDL Cholesterol Direct Urine Creatinine Urine Total Protein Salicylates Acetaminophen Crossmatch 11/30/21 11/30/21 11/30/21 05:14 07:35 11:15 WBC RBC Hgb 8.7 L Hct 26.8 L MCH RDW Plt Count Lymph % (Auto) Sharkey % (Auto) Lymph # (Auto) Sharkey # (Auto) Seg Neutrophils % Seg Neuts % (Manual) Lymphocytes % (Manual) Monocytes % (Manual) Basophils % (Manual) Nucleated RBC % Seg Neutrophils # Seg Neutrophils # Man Lymphocytes # (Manual) Monocytes # (Manual) Eosinophils # (Manual) Basophils # (Manual) PT INR APTT D-Dimer Heparin Anti-Xa Level ABG pH ABG pO2 ABG HCO3 ABG O2 Saturation ABG Base Excess ABG Hemoglobin Oxyhemoglobin Sodium Potassium Chloride Carbon Dioxide BUN Creatinine Glucose POC Glucose 114 H 119 H Hemoglobin A1c Lactic Acid Calcium Phosphorus Magnesium Ferritin AST ALT Alkaline Phosphatase Lactate Dehydrogenase Troponin T C-Reactive Protein Total Protein Albumin LDL Cholesterol Direct Urine Creatinine Urine Total Protein Salicylates Acetaminophen Crossmatch 11/30/21 11/30/21 11/30/21 15:26 17:10 18:51 WBC RBC Hgb Hct MCH RDW Plt Count Lymph % (Auto) [place]key % (Auto) Lymph # (Auto) Sharkey # (Auto) Seg Neutrophils % Seg Neuts % (Manual) Lymphocytes % (Manual) Monocytes % (Manual) Basophils % (Manual) Nucleated RBC % Seg Neutrophils # Seg Neutrophils # Man Lymphocytes # (Manual) Monocytes # (Manual) Eosinophils # (Manual) Basophils # (Manual) PT INR APTT D-Dimer Heparin Anti-Xa Level 0.10 L ABG pH ABG pO2 ABG HCO3 ABG O2 Saturation ABG Base Excess ABG Hemoglobin Oxyhemoglobin Sodium 126 L Potassium Chloride 86.5 L Carbon Dioxide BUN 42 H Creatinine 4.0 H Glucose 155 H POC Glucose 157 H Hemoglobin A1c Lactic Acid Calcium 8.0 L Phosphorus Magnesium Ferritin AST ALT Alkaline Phosphatase Lactate Dehydrogenase Troponin T C-Reactive Protein Total Protein Albumin LDL Cholesterol Direct Urine Creatinine Urine Total Protein Salicylates Acetaminophen Crossmatch 11/30/21 12/01/21 12/01/21 20:04 00:39 09:38 WBC 25.2 H RBC 3.06 L Hgb 8.5 L Hct 26.8 L MCH RDW 16.1 H Plt Count Lymph % (Auto) [place]key % (Auto) Lymph # (Auto) Sharkey # (Auto) Seg Neutrophils % Seg Neuts % (Manual) 80.0 H Lymphocytes % (Manual) 9.0 L Monocytes % (Manual) Basophils % (Manual) Nucleated RBC % Seg Neutrophils # Seg Neutrophils # Man 20.2 H Lymphocytes # (Manual) Monocytes # (Manual) 1.3 H Eosinophils # (Manual) Basophils # (Manual) PT INR APTT D-Dimer Heparin Anti-Xa Level 0.18 L ABG pH ABG pO2 ABG HCO3 ABG O2 Saturation ABG Base Excess ABG Hemoglobin Oxyhemoglobin Sodium Potassium Chloride Carbon Dioxide BUN Creatinine Glucose POC Glucose 115 H Hemoglobin A1c Lactic Acid Calcium Phosphorus Magnesium Ferritin AST ALT Alkaline Phosphatase Lactate Dehydrogenase Troponin T C-Reactive Protein Total Protein Albumin LDL Cholesterol Direct Urine Creatinine Urine Total Protein Salicylates Acetaminophen Crossmatch 12/01/21 12/01/21 12/02/21 09:38 11:35 03:22 WBC 23.3 H RBC 2.61 L Hgb 7.5 L Hct 22.8 L MCH RDW 16.1 H Plt Count Lymph % (Auto) [place]key % (Auto) Lymph # (Auto) Sharkey # (Auto) Seg Neutrophils % Seg Neuts % (Manual) 77.0 H Lymphocytes % (Manual) 7.0 L Monocytes % (Manual) 14.0 H Basophils % (Manual) Nucleated RBC % Seg Neutrophils # Seg Neutrophils # Man 17.9 H Lymphocytes # (Manual) Monocytes # (Manual) 3.3 H Eosinophils # (Manual) Basophils # (Manual) 0.2 H PT INR APTT D-Dimer Heparin Anti-Xa Level ABG pH ABG pO2 ABG HCO3 ABG O2 Saturation ABG Base Excess ABG Hemoglobin Oxyhemoglobin Sodium 127 L Potassium 5.1 H Chloride 87.9 L Carbon Dioxide BUN 49 H Creatinine 4.9 H Glucose 134 H POC Glucose 109 H Hemoglobin A1c Lactic Acid Calcium 7.9 L Phosphorus Magnesium Ferritin AST ALT Alkaline Phosphatase Lactate Dehydrogenase Troponin T C-Reactive Protein Total Protein Albumin LDL Cholesterol Direct Urine Creatinine Urine Total Protein Salicylates Acetaminophen Crossmatch 12/02/21 12/02/21 12/02/21 03:22 03:22 15:40 WBC RBC Hgb Hct MCH RDW Plt Count Lymph % (Auto) [place]key % (Auto) Lymph # (Auto) Sharkey # (Auto) Seg Neutrophils % Seg Neuts % (Manual) Lymphocytes % (Manual) Monocytes % (Manual) Basophils % (Manual) Nucleated RBC % Seg Neutrophils # Seg Neutrophils # Man Lymphocytes # (Manual) Monocytes # (Manual) Eosinophils # (Manual) Basophils # (Manual) PT INR APTT D-Dimer Heparin Anti-Xa Level 0.15 L < 0.10 L ABG pH ABG pO2 ABG HCO3 ABG O2 Saturation ABG Base Excess ABG Hemoglobin Oxyhemoglobin Sodium 129 L Potassium Chloride 91.7 L Carbon Dioxide BUN 42 H Creatinine 4.4 H Glucose POC Glucose Hemoglobin A1c Lactic Acid Calcium 8.0 L Phosphorus 5.20 H Magnesium Ferritin AST ALT Alkaline Phosphatase Lactate Dehydrogenase Troponin T C-Reactive Protein Total Protein Albumin LDL Cholesterol Direct Urine Creatinine Urine Total Protein Salicylates Acetaminophen Crossmatch 12/02/21 12/02/21 12/03/21 17:45 21:03 05:24 WBC 22.3 H RBC 2.69 L Hgb 7.4 L Hct 23.5 L MCH RDW 16.5 H Plt Count Lymph % (Auto) Sharkey % (Auto) Lymph # (Auto) Sharkey # (Auto) Seg Neutrophils % Seg Neuts % (Manual) 85.5 H Lymphocytes % (Manual) 6.0 L Monocytes % (Manual) Basophils % (Manual) Nucleated RBC % Seg Neutrophils # Seg Neutrophils # Man 19.1 H Lymphocytes # (Manual) Monocytes # (Manual) 1.0 H Eosinophils # (Manual) 0.7 H Basophils # (Manual) PT INR APTT D-Dimer Heparin Anti-Xa Level ABG pH ABG pO2 ABG HCO3 ABG O2 Saturation ABG Base Excess ABG Hemoglobin Oxyhemoglobin Sodium Potassium Chloride Carbon Dioxide BUN Creatinine Glucose POC Glucose 122 H 121 H Hemoglobin A1c Lactic Acid Calcium Phosphorus Magnesium Ferritin AST ALT Alkaline Phosphatase Lactate Dehydrogenase Troponin T C-Reactive Protein Total Protein Albumin LDL Cholesterol Direct Urine Creatinine Urine Total Protein Salicylates Acetaminophen Crossmatch 12/03/21 12/03/21 12/03/21 08:00 11:19 15:11 WBC RBC Hgb Hct MCH RDW Plt Count Lymph % (Auto) [place]key % (Auto) Lymph # (Auto) [place]key # (Auto) Seg Neutrophils % Seg Neuts % (Manual) Lymphocytes % (Manual) Monocytes % (Manual) Basophils % (Manual) Nucleated RBC % Seg Neutrophils # Seg Neutrophils # Man Lymphocytes # (Manual) Monocytes # (Manual) Eosinophils # (Manual) Basophils # (Manual) PT INR APTT D-Dimer Heparin Anti-Xa Level ABG pH ABG pO2 ABG HCO3 ABG O2 Saturation ABG Base Excess ABG Hemoglobin Oxyhemoglobin Sodium 134 L Potassium Chloride 95.9 L Carbon Dioxide BUN 30 H Creatinine 3.5 H Glucose 110 H POC Glucose 108 H 117 H Hemoglobin A1c Lactic Acid Calcium Phosphorus Magnesium Ferritin AST ALT Alkaline Phosphatase Lactate Dehydrogenase Troponin T C-Reactive Protein Total Protein Albumin LDL Cholesterol Direct Urine Creatinine Urine Total Protein Salicylates Acetaminophen Crossmatch 12/03/21 12/04/21 12/04/21 20:32 06:15 06:15 WBC 18.5 H RBC 2.88 L Hgb 8.0 L Hct 25.6 L MCH RDW 16.4 H Plt Count Lymph % (Auto) Sharkey % (Auto) Lymph # (Auto) Sharkey # (Auto) Seg Neutrophils % Seg Neuts % (Manual) 74.0 H Lymphocytes % (Manual) 11.0 L Monocytes % (Manual) 9.0 H Basophils % (Manual) Nucleated RBC % Seg Neutrophils # Seg Neutrophils # Man 13.7 H Lymphocytes # (Manual) Monocytes # (Manual) 1.7 H Eosinophils # (Manual) Basophils # (Manual) PT INR APTT D-Dimer Heparin Anti-Xa Level ABG pH ABG pO2 ABG HCO3 ABG O2 Saturation ABG Base Excess ABG Hemoglobin Oxyhemoglobin Sodium 135 L Potassium Chloride 96.9 L Carbon Dioxide BUN 19 H Creatinine 2.8 H Glucose 102 H POC Glucose 122 H Hemoglobin A1c Lactic Acid Calcium Phosphorus Magnesium Ferritin AST ALT Alkaline Phosphatase Lactate Dehydrogenase Troponin T C-Reactive Protein Total Protein Albumin LDL Cholesterol Direct Urine Creatinine Urine Total Protein Salicylates Acetaminophen Crossmatch 12/04/21 12/04/21 12/04/21 08:14 11:17 15:58 WBC RBC Hgb Hct MCH RDW Plt Count Lymph % (Auto) [place]key % (Auto) Lymph # (Auto) [place]key # (Auto) Seg Neutrophils % Seg Neuts % (Manual) Lymphocytes % (Manual) Monocytes % (Manual) Basophils % (Manual) Nucleated RBC % Seg Neutrophils # Seg Neutrophils # Man Lymphocytes # (Manual) Monocytes # (Manual) Eosinophils # (Manual) Basophils # (Manual) PT INR APTT D-Dimer Heparin Anti-Xa Level ABG pH ABG pO2 ABG HCO3 ABG O2 Saturation ABG Base Excess ABG Hemoglobin Oxyhemoglobin Sodium Potassium Chloride Carbon Dioxide BUN Creatinine Glucose POC Glucose 106 H 125 H 113 H Hemoglobin A1c Lactic Acid Calcium Phosphorus Magnesium Ferritin AST ALT Alkaline Phosphatase Lactate Dehydrogenase Troponin T C-Reactive Protein Total Protein Albumin LDL Cholesterol Direct Urine Creatinine Urine Total Protein Salicylates Acetaminophen Crossmatch 12/04/21 12/05/21 12/05/21 20:25 05:05 08:15 WBC 19.4 H RBC 2.89 L Hgb 8.1 L Hct 25.6 L MCH RDW 16.3 H Plt Count Lymph % (Auto) [place]key % (Auto) Lymph # (Auto) Sharkey # (Auto) Seg Neutrophils % Seg Neuts % (Manual) Lymphocytes % (Manual) 13.0 L Monocytes % (Manual) 13.0 H Basophils % (Manual) Nucleated RBC % Seg Neutrophils # Seg Neutrophils # Man 12.4 H Lymphocytes # (Manual) Monocytes # (Manual) 2.5 H Eosinophils # (Manual) 0.8 H Basophils # (Manual) PT INR APTT D-Dimer Heparin Anti-Xa Level ABG pH ABG pO2 ABG HCO3 ABG O2 Saturation ABG Base Excess ABG Hemoglobin Oxyhemoglobin Sodium Potassium Chloride Carbon Dioxide BUN Creatinine Glucose POC Glucose 130 H 107 H Hemoglobin A1c Lactic Acid Calcium Phosphorus Magnesium Ferritin AST ALT Alkaline Phosphatase Lactate Dehydrogenase Troponin T C-Reactive Protein Total Protein Albumin LDL Cholesterol Direct Urine Creatinine Urine Total Protein Salicylates Acetaminophen Crossmatch 12/05/21 12/05/21 12/05/21 11:18 16:42 21:14 WBC RBC Hgb Hct MCH RDW Plt Count Lymph % (Auto) [place]key % (Auto) Lymph # (Auto) Sharkey # (Auto) Seg Neutrophils % Seg Neuts % (Manual) Lymphocytes % (Manual) Monocytes % (Manual) Basophils % (Manual) Nucleated RBC % Seg Neutrophils # Seg Neutrophils # Man Lymphocytes # (Manual) Monocytes # (Manual) Eosinophils # (Manual) Basophils # (Manual) PT INR APTT D-Dimer Heparin Anti-Xa Level ABG pH ABG pO2 ABG HCO3 ABG O2 Saturation ABG Base Excess ABG Hemoglobin Oxyhemoglobin Sodium Potassium Chloride Carbon Dioxide BUN Creatinine Glucose POC Glucose 114 H 122 H 119 H Hemoglobin A1c Lactic Acid Calcium Phosphorus Magnesium Ferritin AST ALT Alkaline Phosphatase Lactate Dehydrogenase Troponin T C-Reactive Protein Total Protein Albumin LDL Cholesterol Direct Urine Creatinine Urine Total Protein Salicylates Acetaminophen Crossmatch 12/05/21 12/06/21 12/06/21 23:51 04:36 04:36 WBC RBC Hgb 8.0 L Hct 25.7 L MCH RDW Plt Count Lymph % (Auto) [place]key % (Auto) Lymph # (Auto) Sharkey # (Auto) Seg Neutrophils % Seg Neuts % (Manual) Lymphocytes % (Manual) Monocytes % (Manual) Basophils % (Manual) Nucleated RBC % Seg Neutrophils # Seg Neutrophils # Man Lymphocytes # (Manual) Monocytes # (Manual) Eosinophils # (Manual) Basophils # (Manual) PT INR APTT D-Dimer Heparin Anti-Xa Level 0.71 H ABG pH ABG pO2 ABG HCO3 ABG O2 Saturation ABG Base Excess ABG Hemoglobin Oxyhemoglobin Sodium 132 L Potassium Chloride 92.5 L Carbon Dioxide BUN 35 H Creatinine 4.0 H Glucose POC Glucose Hemoglobin A1c Lactic Acid Calcium Phosphorus Magnesium Ferritin AST ALT Alkaline Phosphatase Lactate Dehydrogenase Troponin T C-Reactive Protein Total Protein Albumin LDL Cholesterol Direct Urine Creatinine Urine Total Protein Salicylates Acetaminophen Crossmatch 12/06/21 12/06/21 12/06/21 07:32 11:12 15:49 WBC RBC Hgb Hct MCH RDW Plt Count Lymph % (Auto) [place]key % (Auto) Lymph # (Auto) [place]key # (Auto) Seg Neutrophils % Seg Neuts % (Manual) Lymphocytes % (Manual) Monocytes % (Manual) Basophils % (Manual) Nucleated RBC % Seg Neutrophils # Seg Neutrophils # Man Lymphocytes # (Manual) Monocytes # (Manual) Eosinophils # (Manual) Basophils # (Manual) PT INR APTT D-Dimer Heparin Anti-Xa Level ABG pH ABG pO2 ABG HCO3 ABG O2 Saturation ABG Base Excess ABG Hemoglobin Oxyhemoglobin Sodium Potassium Chloride Carbon Dioxide BUN Creatinine Glucose POC Glucose 106 H 112 H 111 H Hemoglobin A1c Lactic Acid Calcium Phosphorus Magnesium Ferritin AST ALT Alkaline Phosphatase Lactate Dehydrogenase Troponin T C-Reactive Protein Total Protein Albumin LDL Cholesterol Direct Urine Creatinine Urine Total Protein Salicylates Acetaminophen Crossmatch 12/06/21 12/06/21 12/07/21 17:13 21:31 06:11 WBC RBC Hgb Hct MCH RDW Plt Count Lymph % (Auto) [place]key % (Auto) Lymph # (Auto) [place]key # (Auto) Seg Neutrophils % Seg Neuts % (Manual) Lymphocytes % (Manual) Monocytes % (Manual) Basophils % (Manual) Nucleated RBC % Seg Neutrophils # Seg Neutrophils # Man Lymphocytes # (Manual) Monocytes # (Manual) Eosinophils # (Manual) Basophils # (Manual) PT INR APTT D-Dimer Heparin Anti-Xa Level ABG pH ABG pO2 ABG HCO3 ABG O2 Saturation ABG Base Excess ABG Hemoglobin Oxyhemoglobin Sodium 126 L Potassium Chloride 90.1 L Carbon Dioxide BUN 43 H Creatinine 4.2 H Glucose POC Glucose 113 H 112 H Hemoglobin A1c Lactic Acid Calcium Phosphorus Magnesium Ferritin AST ALT Alkaline Phosphatase Lactate Dehydrogenase Troponin T C-Reactive Protein Total Protein Albumin LDL Cholesterol Direct Urine Creatinine Urine Total Protein Salicylates Acetaminophen Crossmatch 12/07/21 12/07/21 12/08/21 12:04 21:36 04:53 WBC RBC Hgb Hct MCH RDW Plt Count Lymph % (Auto) [place]key % (Auto) Lymph # (Auto) [place]key # (Auto) Seg Neutrophils % Seg Neuts % (Manual) Lymphocytes % (Manual) Monocytes % (Manual) Basophils % (Manual) Nucleated RBC % Seg Neutrophils # Seg Neutrophils # Man Lymphocytes # (Manual) Monocytes # (Manual) Eosinophils # (Manual) Basophils # (Manual) PT INR APTT D-Dimer Heparin Anti-Xa Level ABG pH ABG pO2 ABG HCO3 ABG O2 Saturation ABG Base Excess ABG Hemoglobin Oxyhemoglobin Sodium 128 L Potassium Chloride 93.1 L Carbon Dioxide 21 L BUN 39 H Creatinine 3.9 H Glucose 103 H POC Glucose 119 H 112 H Hemoglobin A1c Lactic Acid Calcium Phosphorus Magnesium Ferritin AST ALT Alkaline Phosphatase Lactate Dehydrogenase Troponin T C-Reactive Protein Total Protein Albumin LDL Cholesterol Direct Urine Creatinine Urine Total Protein Salicylates Acetaminophen Crossmatch 12/08/21 12/08/21 12/08/21 04:53 08:56 11:20 WBC 24.2 H RBC 2.71 L Hgb 7.6 L Hct 24.1 L MCH RDW 16.7 H Plt Count 114 L Lymph % (Auto) Sharkey % (Auto) Lymph # (Auto) Sharkey # (Auto) Seg Neutrophils % Seg Neuts % (Manual) 76.0 H Lymphocytes % (Manual) Monocytes % (Manual) Basophils % (Manual) Nucleated RBC % 1.0 H Seg Neutrophils # Seg Neutrophils # Man 18.4 H Lymphocytes # (Manual) Monocytes # (Manual) 1.5 H Eosinophils # (Manual) 1.0 H Basophils # (Manual) PT INR APTT D-Dimer Heparin Anti-Xa Level 0.94 H ABG pH ABG pO2 ABG HCO3 ABG O2 Saturation ABG Base Excess ABG Hemoglobin Oxyhemoglobin Sodium Potassium Chloride Carbon Dioxide BUN Creatinine Glucose POC Glucose 119 H Hemoglobin A1c Lactic Acid Calcium Phosphorus Magnesium Ferritin AST ALT Alkaline Phosphatase Lactate Dehydrogenase Troponin T C-Reactive Protein Total Protein Albumin LDL Cholesterol Direct Urine Creatinine Urine Total Protein Salicylates Acetaminophen Crossmatch 12/08/21 12/08/21 12/09/21 16:55 21:18 07:05 WBC RBC Hgb Hct MCH RDW Plt Count Lymph % (Auto) [place]key % (Auto) Lymph # (Auto) [place]key # (Auto) Seg Neutrophils % Seg Neuts % (Manual) Lymphocytes % (Manual) Monocytes % (Manual) Basophils % (Manual) Nucleated RBC % Seg Neutrophils # Seg Neutrophils # Man Lymphocytes # (Manual) Monocytes # (Manual) Eosinophils # (Manual) Basophils # (Manual) PT INR APTT D-Dimer Heparin Anti-Xa Level ABG pH ABG pO2 ABG HCO3 ABG O2 Saturation ABG Base Excess ABG Hemoglobin Oxyhemoglobin Sodium 124 L Potassium Chloride 89.9 L Carbon Dioxide BUN 45 H Creatinine 3.5 H Glucose POC Glucose 112 H 122 H Hemoglobin A1c Lactic Acid Calcium Phosphorus Magnesium Ferritin AST ALT Alkaline Phosphatase Lactate Dehydrogenase Troponin T C-Reactive Protein Total Protein Albumin LDL Cholesterol Direct Urine Creatinine Urine Total Protein Salicylates Acetaminophen Crossmatch 12/09/21 12/09/21 12/10/21 11:02 20:11 05:22 WBC RBC Hgb Hct MCH RDW Plt Count Lymph % (Auto) [place]key % (Auto) Lymph # (Auto) [place]key # (Auto) Seg Neutrophils % Seg Neuts % (Manual) Lymphocytes % (Manual) Monocytes % (Manual) Basophils % (Manual) Nucleated RBC % Seg Neutrophils # Seg Neutrophils # Man Lymphocytes # (Manual) Monocytes # (Manual) Eosinophils # (Manual) Basophils # (Manual) PT INR APTT D-Dimer Heparin Anti-Xa Level ABG pH ABG pO2 ABG HCO3 ABG O2 Saturation ABG Base Excess ABG Hemoglobin Oxyhemoglobin Sodium 131 L D Potassium Chloride 97.0 L Carbon Dioxide BUN 34 H Creatinine 2.9 H Glucose POC Glucose 132 H 108 H Hemoglobin A1c Lactic Acid Calcium Phosphorus Magnesium Ferritin AST ALT Alkaline Phosphatase Lactate Dehydrogenase Troponin T C-Reactive Protein Total Protein Albumin LDL Cholesterol Direct Urine Creatinine Urine Total Protein Salicylates Acetaminophen Crossmatch 12/10/21 12/10/21 12/10/21 05:22 07:48 11:30 WBC 14.5 H RBC 2.65 L Hgb 7.7 L Hct 23.6 L MCH RDW 17.0 H Plt Count 119 L Lymph % (Auto) [place]key % (Auto) Lymph # (Auto) Sharkey # (Auto) Seg Neutrophils % Seg Neuts % (Manual) 73.0 H Lymphocytes % (Manual) 7.0 L Monocytes % (Manual) Basophils % (Manual) 2.0 H Nucleated RBC % 1.0 H Seg Neutrophils # Seg Neutrophils # Man 10.6 H Lymphocytes # (Manual) 1.0 L Monocytes # (Manual) Eosinophils # (Manual) Basophils # (Manual) 0.3 H PT INR APTT D-Dimer Heparin Anti-Xa Level ABG pH ABG pO2 ABG HCO3 ABG O2 Saturation ABG Base Excess ABG Hemoglobin Oxyhemoglobin Sodium Potassium Chloride Carbon Dioxide BUN Creatinine Glucose POC Glucose 106 H 129 H Hemoglobin A1c Lactic Acid Calcium Phosphorus Magnesium Ferritin AST ALT Alkaline Phosphatase Lactate Dehydrogenase Troponin T C-Reactive Protein Total Protein Albumin LDL Cholesterol Direct Urine Creatinine Urine Total Protein Salicylates Acetaminophen Crossmatch 12/10/21 12/10/21 12/10/21 16:17 20:56 21:40 WBC RBC Hgb Hct MCH RDW Plt Count Lymph % (Auto) [place]key % (Auto) Lymph # (Auto) [place]key # (Auto) Seg Neutrophils % Seg Neuts % (Manual) Lymphocytes % (Manual) Monocytes % (Manual) Basophils % (Manual) Nucleated RBC % Seg Neutrophils # Seg Neutrophils # Man Lymphocytes # (Manual) Monocytes # (Manual) Eosinophils # (Manual) Basophils # (Manual) PT INR APTT D-Dimer Heparin Anti-Xa Level 0.87 H ABG pH ABG pO2 ABG HCO3 ABG O2 Saturation ABG Base Excess ABG Hemoglobin Oxyhemoglobin Sodium Potassium Chloride Carbon Dioxide BUN Creatinine Glucose POC Glucose 108 H 113 H Hemoglobin A1c Lactic Acid Calcium Phosphorus Magnesium Ferritin AST ALT Alkaline Phosphatase Lactate Dehydrogenase Troponin T C-Reactive Protein Total Protein Albumin LDL Cholesterol Direct Urine Creatinine Urine Total Protein Salicylates Acetaminophen Crossmatch 12/11/21 12/11/21 12/11/21 05:21 05:21 08:10 WBC RBC Hgb Hct MCH RDW Plt Count Lymph % (Auto) [place]key % (Auto) Lymph # (Auto) [place]key # (Auto) Seg Neutrophils % Seg Neuts % (Manual) Lymphocytes % (Manual) Monocytes % (Manual) Basophils % (Manual) Nucleated RBC % Seg Neutrophils # Seg Neutrophils # Man Lymphocytes # (Manual) Monocytes # (Manual) Eosinophils # (Manual) Basophils # (Manual) PT INR APTT D-Dimer Heparin Anti-Xa Level 0.85 H ABG pH ABG pO2 ABG HCO3 ABG O2 Saturation ABG Base Excess ABG Hemoglobin Oxyhemoglobin Sodium 129 L Potassium Chloride 94.3 L Carbon Dioxide BUN 41 H Creatinine 3.0 H Glucose 111 H POC Glucose 109 H Hemoglobin A1c Lactic Acid Calcium Phosphorus Magnesium Ferritin AST ALT Alkaline Phosphatase Lactate Dehydrogenase Troponin T C-Reactive Protein Total Protein Albumin LDL Cholesterol Direct Urine Creatinine Urine Total Protein Salicylates Acetaminophen Crossmatch 12/11/21 12/11/21 12/11/21 12:00 13:08 13:08 WBC 13.6 H RBC 2.78 L Hgb 8.1 L Hct 25.2 L MCH RDW 17.7 H Plt Count Lymph % (Auto) [place]key % (Auto) Lymph # (Auto) [place]key # (Auto) Seg Neutrophils % Seg Neuts % (Manual) Lymphocytes % (Manual) Monocytes % (Manual) Basophils % (Manual) Nucleated RBC % Seg Neutrophils # Seg Neutrophils # Man Lymphocytes # (Manual) Monocytes # (Manual) Eosinophils # (Manual) Basophils # (Manual) PT INR APTT 116.8 H* D-Dimer Heparin Anti-Xa Level ABG pH ABG pO2 ABG HCO3 ABG O2 Saturation ABG Base Excess ABG Hemoglobin Oxyhemoglobin Sodium Potassium Chloride Carbon Dioxide BUN Creatinine Glucose POC Glucose 170 H Hemoglobin A1c Lactic Acid Calcium Phosphorus Magnesium Ferritin AST ALT Alkaline Phosphatase Lactate Dehydrogenase Troponin T C-Reactive Protein Total Protein Albumin LDL Cholesterol Direct Urine Creatinine Urine Total Protein Salicylates Acetaminophen Crossmatch 12/11/21 12/12/21 12/12/21 13:08 05:15 14:10 WBC RBC Hgb Hct MCH RDW Plt Count Lymph % (Auto) [place]key % (Auto) Lymph # (Auto) [place]key # (Auto) Seg Neutrophils % Seg Neuts % (Manual) Lymphocytes % (Manual) Monocytes % (Manual) Basophils % (Manual) Nucleated RBC % Seg Neutrophils # Seg Neutrophils # Man Lymphocytes # (Manual) Monocytes # (Manual) Eosinophils # (Manual) Basophils # (Manual) PT INR APTT D-Dimer Heparin Anti-Xa Level ABG pH 7.333 L ABG pO2 57.0 L ABG HCO3 ABG O2 Saturation 88.0 L ABG Base Excess ABG Hemoglobin 7.6 L Oxyhemoglobin 85.4 L Sodium 129 L Potassium 5.1 H Chloride 95.8 L Carbon Dioxide 21 L BUN 48 H Creatinine 3.0 H 2.9 H Glucose POC Glucose Hemoglobin A1c Lactic Acid Calcium Phosphorus Magnesium Ferritin AST ALT Alkaline Phosphatase Lactate Dehydrogenase Troponin T C-Reactive Protein Total Protein Albumin LDL Cholesterol Direct Urine Creatinine Urine Total Protein Salicylates Acetaminophen Crossmatch 12/12/21 12/13/21 12/13/21 21:25 06:19 16:21 WBC 12.9 H RBC 2.54 L Hgb 7.2 L Hct 22.8 L MCH RDW 18.0 H Plt Count Lymph % (Auto) [place]key % (Auto) Lymph # (Auto) [place]key # (Auto) Seg Neutrophils % Seg Neuts % (Manual) Lymphocytes % (Manual) Monocytes % (Manual) Basophils % (Manual) Nucleated RBC % Seg Neutrophils # Seg Neutrophils # Man Lymphocytes # (Manual) Monocytes # (Manual) Eosinophils # (Manual) Basophils # (Manual) PT INR APTT D-Dimer Heparin Anti-Xa Level ABG pH ABG pO2 ABG HCO3 ABG O2 Saturation ABG Base Excess ABG Hemoglobin Oxyhemoglobin Sodium Potassium Chloride Carbon Dioxide BUN Creatinine Glucose POC Glucose 125 H 117 H Hemoglobin A1c Lactic Acid Calcium Phosphorus Magnesium Ferritin AST ALT Alkaline Phosphatase Lactate Dehydrogenase Troponin T C-Reactive Protein Total Protein Albumin LDL Cholesterol Direct Urine Creatinine Urine Total Protein Salicylates Acetaminophen Crossmatch 12/13/21 12/14/21 12/14/21 21:20 06:36 12:17 WBC RBC Hgb Hct MCH RDW Plt Count Lymph % (Auto) Sharkey % (Auto) Lymph # (Auto) Sharkey # (Auto) Seg Neutrophils % Seg Neuts % (Manual) Lymphocytes % (Manual) Monocytes % (Manual) Basophils % (Manual) Nucleated RBC % Seg Neutrophils # Seg Neutrophils # Man Lymphocytes # (Manual) Monocytes # (Manual) Eosinophils # (Manual) Basophils # (Manual) PT INR APTT D-Dimer Heparin Anti-Xa Level ABG pH ABG pO2 ABG HCO3 ABG O2 Saturation ABG Base Excess ABG Hemoglobin Oxyhemoglobin Sodium 132 L Potassium Chloride Carbon Dioxide BUN 43 H Creatinine 1.9 H Glucose POC Glucose 114 H 130 H Hemoglobin A1c Lactic Acid Calcium Phosphorus Magnesium Ferritin AST ALT < 5 L Alkaline Phosphatase Lactate Dehydrogenase Troponin T C-Reactive Protein Total Protein 6.0 L Albumin 3.0 L LDL Cholesterol Direct Urine Creatinine Urine Total Protein Salicylates Acetaminophen Crossmatch 12/14/21 12/14/21 12/15/21 16:25 20:49 03:59 WBC RBC 2.37 L Hgb 6.9 L Hct 21.4 L MCH RDW 18.4 H Plt Count Lymph % (Auto) Sharkey % (Auto) Lymph # (Auto) Sharkey # (Auto) Seg Neutrophils % Seg Neuts % (Manual) Lymphocytes % (Manual) Monocytes % (Manual) Basophils % (Manual) Nucleated RBC % Seg Neutrophils # Seg Neutrophils # Man Lymphocytes # (Manual) Monocytes # (Manual) Eosinophils # (Manual) Basophils # (Manual) PT INR APTT D-Dimer Heparin Anti-Xa Level ABG pH ABG pO2 ABG HCO3 ABG O2 Saturation ABG Base Excess ABG Hemoglobin Oxyhemoglobin Sodium Potassium Chloride Carbon Dioxide BUN Creatinine Glucose POC Glucose 128 H 126 H Hemoglobin A1c Lactic Acid Calcium Phosphorus Magnesium Ferritin AST ALT Alkaline Phosphatase Lactate Dehydrogenase Troponin T C-Reactive Protein Total Protein Albumin LDL Cholesterol Direct Urine Creatinine Urine Total Protein Salicylates Acetaminophen Crossmatch 12/15/21 12/15/21 12/15/21 06:06 12:08 21:05 WBC RBC Hgb Hct MCH RDW Plt Count Lymph % (Auto) Sharkey % (Auto) Lymph # (Auto) Sharkey # (Auto) Seg Neutrophils % Seg Neuts % (Manual) Lymphocytes % (Manual) Monocytes % (Manual) Basophils % (Manual) Nucleated RBC % Seg Neutrophils # Seg Neutrophils # Man Lymphocytes # (Manual) Monocytes # (Manual) Eosinophils # (Manual) Basophils # (Manual) PT INR APTT D-Dimer Heparin Anti-Xa Level ABG pH ABG pO2 ABG HCO3 ABG O2 Saturation ABG Base Excess ABG Hemoglobin Oxyhemoglobin Sodium 133 L Potassium Chloride Carbon Dioxide BUN 42 H Creatinine 1.5 H Glucose POC Glucose 146 H Hemoglobin A1c Lactic Acid Calcium Phosphorus Magnesium Ferritin AST ALT Alkaline Phosphatase Lactate Dehydrogenase Troponin T C-Reactive Protein Total Protein Albumin LDL Cholesterol Direct Urine Creatinine Urine Total Protein Salicylates Acetaminophen Crossmatch See Detail 12/16/21 12/16/21 12/16/21 07:03 08:44 11:09 WBC 11.7 H RBC 2.72 L Hgb 8.2 L Hct 25.2 L MCH RDW 19.3 H Plt Count Lymph % (Auto) Sharkey % (Auto) Lymph # (Auto) Sharkey # (Auto) Seg Neutrophils % Seg Neuts % (Manual) Lymphocytes % (Manual) Monocytes % (Manual) Basophils % (Manual) Nucleated RBC % Seg Neutrophils # Seg Neutrophils # Man Lymphocytes # (Manual) Monocytes # (Manual) Eosinophils # (Manual) Basophils # (Manual) PT INR APTT D-Dimer Heparin Anti-Xa Level ABG pH ABG pO2 ABG HCO3 ABG O2 Saturation ABG Base Excess ABG Hemoglobin Oxyhemoglobin Sodium 134 L Potassium Chloride Carbon Dioxide BUN 39 H Creatinine 1.5 H Glucose 104 H POC Glucose 134 H Hemoglobin A1c Lactic Acid Calcium Phosphorus Magnesium Ferritin AST ALT Alkaline Phosphatase Lactate Dehydrogenase Troponin T C-Reactive Protein Total Protein Albumin LDL Cholesterol Direct Urine Creatinine Urine Total Protein Salicylates Acetaminophen Crossmatch 12/16/21 12/16/21 15:40 17:35 WBC RBC Hgb 8.3 L Hct 26.2 L MCH RDW Plt Count Lymph % (Auto) Sharkey % (Auto) Lymph # (Auto) Sharkey # (Auto) Seg Neutrophils % Seg Neuts % (Manual) Lymphocytes % (Manual) Monocytes % (Manual) Basophils % (Manual) Nucleated RBC % Seg Neutrophils # Seg Neutrophils # Man Lymphocytes # (Manual) Monocytes # (Manual) Eosinophils # (Manual) Basophils # (Manual) PT INR APTT D-Dimer Heparin Anti-Xa Level ABG pH ABG pO2 ABG HCO3 ABG O2 Saturation ABG Base Excess ABG Hemoglobin Oxyhemoglobin Sodium Potassium Chloride Carbon Dioxide BUN Creatinine Glucose POC Glucose 108 H Hemoglobin A1c Lactic Acid Calcium Phosphorus Magnesium Ferritin AST ALT Alkaline Phosphatase Lactate Dehydrogenase Troponin T C-Reactive Protein Total Protein Albumin LDL Cholesterol Direct Urine Creatinine Urine Total Protein Salicylates Acetaminophen Crossmatch Allied health notes reviewed: nursing
[2021-12-16 21:57] LABS: Hematocrit 26.4 % (30.3-42.9); Hemoglobin 8.3 gm/dl (10.1-14.3); Mean Corpuscular HGB Conc 32 % (30-34); Mean Corpuscular Volume 94 fl (79-97); Platelet Count 235 K/mm3 (140-440); Red Blood Count 2.81 M/mm3 (3.65-5.03); Red Cell Distribution Width 19.7 % (13.2-15.2)
[2021-12-16 22:11] LABS: INR 1.22 (0.87-1.13); Partial Thromboplastin Time 32.2 Sec. (24.2-36.6)
[2021-12-17] MEDS: GABAPENTIN 100 MG CAP PO SCH ×3 (05:52→22:34)
[2021-12-17 06:38] LABS: Basophils # (Auto) 0.1 K/mm3 (0.0-0.1); Basophils % (Auto) 1.2 % (0.0-1.8); Eosinophils # (Auto) 0.2 K/mm3 (0.0-0.4); Eosinophils % (Auto) 2.2 % (0.0-4.3); Hematocrit 26.8 % (30.3-42.9); Hemoglobin 8.5 gm/dl (10.1-14.3); Lymphocytes # (Auto) 1.2 K/mm3 (1.2-5.4); Lymphocytes % (Auto) 16.9 % (13.4-35.0); Mean Corpuscular HGB Conc 32 % (30-34); Mean Corpuscular Volume 94 fl (79-97); Monocytes # (Auto) 1.1 K/mm3 (0.0-0.8); Monocytes % (Auto) 15.4 % (0.0-7.3); Platelet Count 233 K/mm3 (140-440); Red Blood Count 2.85 M/mm3 (3.65-5.03); Red Cell Distribution Width 19.6 % (13.2-15.2)
[2021-12-17 06:44] LABS: Calcium 9.1 mg/dL (8.4-10.2)
[2021-12-17] MEDS: MIDODRINE 5 MG TAB PO SCH ×3 (08:05→17:01)
[2021-12-17] MEDS ORDERED: SODIUM CHLORIDE 0.9% 100 ML IV PRN ×2 (08:21→08:25)
[2021-12-17] MEDS: INSULIN LISPRO 100 UNIT/ML SUB-Q SCH ×4 (08:32→22:00)
[2021-12-17] MEDS ORDERED: CALCIUM GLUCONATE 1,000 MG in SODIUM CHLORIDE 0.9% 100 ML IV ONE (09:05)
[2021-12-17] MEDS ORDERED: SODIUM POLYSTYRENE 15 GM/60 ML ORAL LIQD PO ONE (10:00)
--- NOTE | 2021-12-17 10:06 | Progress Note ---
Assessment and Plan Acute Renal Failure secondary to Ischemic ATN secondary to Sepsis, Cardiac arrest and Hypotension S/P Cardiac Arrest Acute Hypoxemic Respiratory Failure Acute DVT Sepsis CHF Anemia Hyperkalemia Hyponatremia Plan: HD today as K high. Eval for need daily. Making good urine. fluid restriction 1000 cc a day CHF-LVEF 25-30 % Anemia-On Epogen 10,000 units TIW Obtain daily weights Strict I/O's daily Renally dose medications Avoid nephrotoxic agents Continue to monitor renal function closely Assess dialysis needs daily Subjective Date of service: 12/17/21 Principal diagnosis: AHRF; Cardiac arrest; R. pneumothorax; pneumonia; AMS; DVT's; SIERRA; Obesity Interval history: Making urine. Objective - Exam Narrative Exam: - Physical Examination General: No Apparent Distress HEENT: Positive: EOMI, Normocephaly Neck: Positive: trachea midline. Negative: JVD/HJR Cardiac: Positive: irregularly irregular Lungs: Positive: Decreased Breath Sounds Neuro: Positive: Grossly Intact Abdomen: Positive: Soft Skin: Negative: Rash Musculoskeletal: No Pain Extremities: Present: upper extr. pulses, +1 Edema, warm - Vital Signs Vital signs: Vital Signs - 12hr 12/16/21 12/17/21 12/17/21 23:11 00:11 04:47 Temperature 98.5 F 98.6 F Pulse Rate 47 L 59 L Respiratory 18 16 Rate Blood Pressure 126/74 121/72 Blood Pressure [Left] O2 Sat by Pulse 98 95 100 Oximetry 12/17/21 12/17/21 12/17/21 07:15 07:20 09:02 Temperature 97.4 F L Pulse Rate 41 L 52 L Respiratory 20 Rate Blood Pressure 122/63 Blood Pressure 113/65 [Left] O2 Sat by Pulse 100 98 100 Oximetry 12/17/21 12/17/21 12/17/21 09:05 09:15 09:30 Temperature Pulse Rate 96 H 80 76 Respiratory Rate Blood Pressure 111/62 120/67 127/61 Blood Pressure [Left] O2 Sat by Pulse Oximetry 12/17/21 12/17/21 09:45 10:00 Temperature Pulse Rate 102 H 88 Respiratory Rate Blood Pressure 117/70 136/58 Blood Pressure [Left] O2 Sat by Pulse Oximetry - Lab 12/17/21 05:59 12/17/21 05:59 Most recent lab results ABG pH 7.333 pH Units (7.350-7.450) L 12/12/21 14:10 ABG pCO2 50.1 mm Hg 12/12/21 14:10 ABG pO2 57.0 mm Hg (80.0-90.0) L 12/12/21 14:10 ABG HCO3 26.0 mmol/L (20.0-26.0) 12/12/21 14:10 ABG O2 Saturation 88.0 % (95.0-99.0) L 12/12/21 14:10 Calcium 9.1 mg/dL (8.4-10.2) 12/17/21 05:59 Phosphorus 5.20 mg/dL (2.5-4.5) H 12/02/21 03: Magnesium 1.60 mg/dL (1.7-2.3) L 11/19/21 14:38 Urine Creatinine 190.9 mg/dL (0.1-20.0) H 11/04/21 Unknown Urine Sodium 10 mmol/L 11/04/21 Unknown Urine Total Protein 172 mg/dL (5-11.8) H 11/04/21 Unknown Medications & Allergies - Medications Allergies/Adverse Reactions: Allergies No Known Allergies Allergy (Verified 10/29/21 14:01) Home Medications: Home Medications Medication Instructions Recorded Confirmed Last Taken Type Unobtainable 11/10/21 11/10/21 Unknown History Active Medications: Generic Name Dose Route Start Last Admin Trade Name Freq PRN Reason Stop Dose Admin Acetaminophen 650 mg 10/29/21 17:04 11/12/21 22:53 Acetaminophen 650 Mg Rect Supp AR 650 mg Q6H PRN Administration Pain MILD(1-3)/Fever >100.5/NIEVES Acetaminophen 650 mg 11/19/21 16:35 12/12/21 15:55 Acetaminophen 325 Mg Tab PO 650 mg Q6HR PRN Administration PAIN Albumin Human 50 gm 12/02/21 11:00 12/15/21 13:00 Albumin Human 25% (25 Gm/100 Ml) Inj IV 50 gm ZACH PRN Administration Hypotension Alprazolam 0.25 mg 11/14/21 14:29 12/15/21 11:02 Alprazolam 0.25 Mg Tab PO 0.25 mg Q8H PRN Administration Anxiety Amiodarone HCl 200 mg 12/13/21 22:00 12/16/21 23:01 Amiodarone 200 Mg Tab PO 200 mg BID RAMON Administration Apixaban 5 mg 12/16/21 22:00 12/16/21 23:01 Apixaban 5 Mg Tab PO 5 mg Q12HR RAMON Administration Protocol Docusate Sodium 100 mg 11/18/21 15:00 12/16/21 23:02 Docusate Sodium 100 Mg Cap PO Not Given BID RAMON Epoetin Landon-epbx 10,000 unit 12/06/21 10:00 12/15/21 15:15 Epoetin [place]andon-Epbx 10,000 Unit/1 Ml Vial IV 10,000 unit ZACH PRN Administration hemodialysis Famotidine 10 mg 11/06/21 10:00 12/16/21 23:01 Famotidine 10 Mg Tab PO 10 mg BID RAMON Administration Gabapentin 100 mg 11/28/21 14:00 12/17/21 05:52 Gabapentin 100 Mg Cap PO 100 mg Q8HR RAMON Administration Hydrophilic Ointment 1 applic 10/29/21 14:29 11/09/21 08:51 Lip Therapy Vaseline TP 1 applic Q2HR PRN Administration Dry Lips Sodium Chloride 100 mls @ 999 mls/hr 12/01/21 14:44 Nacl 0.9% IV ZACH PRN Hypotension Sodium Chloride 500 mls @ 0 mls/hr 12/15/21 11:54 Nacl 0.9% 500 Ml IV ONCE RAMON As Directed Sodium Chloride 100 mls @ 999 mls/hr 12/17/21 08:21 Nacl 0.9% IV ZACH PRN Hypotension Insulin Human Lispro 0 unit 11/25/21 22:00 12/17/21 08:32 Insulin Lispro 100 Unit/Ml SUB-Q Not Given ACHS [facility] Protocol Lactulose 20 gm 11/18/21 14:43 12/06/21 15:26 Lactulose 20 Gm/30 Ml Oral Liqd PO 20 gm Q6H PRN Administration Constipation Magnesium Hydroxide 30 ml 12/16/21 11:00 12/16/21 11:11 Magnesium Hydroxide (Mom) Oral Liqd Udc PO 30 ml Q4H PRN Administration Constipation Melatonin 10 mg 11/22/21 17:31 12/13/21 22:09 Melatonin 5 Mg Tab PO 10 mg QHS PRN Administration Sleep Metoprolol Tartrate 100 mg 12/07/21 11:00 12/16/21 23:02 Metoprolol Tartrate 50 Mg Tab PO 100 mg BID RAMON Administration Midodrine 10 mg 12/01/21 12:00 12/17/21 08:05 Midodrine 5 Mg Tab PO 10 mg TID@0800,1200,1600 RAMON Administration Morphine Sulfate 1 mg 11/28/21 15:00 12/10/21 16:34 Morphine 2 Mg/1 Ml Inj IV 1 mg Q4H PRN Administration Pain, Moderate (4-6) Multi-Ingred Cream/Lotion/Oil/Oint 1 applic 10/29/21 14:29 11/06/21 09:25 Mineral Oil/Petrolatum, White Ophth Oint 3.5 Gm OU 1 applic Q4HR PRN Administration Dry Eye(s) Oxycodone/Acetaminophen 1 tab 11/27/21 14:31 12/16/21 19:51 Oxycodone /Acetaminophen 5-325mg Tab PO 1 tab Q4H PRN Administration Pain, Moderate (4-6) Polyethylene Glycol 17 gm 11/20/21 12:47 12/08/21 09:54 Polyethylene Glycol 3350 17 Gm Powder PO 17 gm QDAY PRN Administration Constipation Senna/Docusate Sodium 1 tab 11/16/21 22:00 12/16/21 23:09 Sennosides/Docusate Sodium 8.6/50 Mg Tab PO Not Given BID RAMON Sodium Chloride 10 ml 10/29/21 22:00 12/16/21 23:03 Sodium Chloride 0.9% 10 Ml Flush Syringe IV 10 ml BID RAMON Administration Sodium Chloride 10 ml 10/29/21 17:04 Sodium Chloride 0.9% 10 Ml Flush Syringe IV PRN PRN LINE FLUSH
--- NOTE | 2021-12-17 12:37 | Progress Note ---
Assessment and Plan Acute hypoxemic respiratory failure on MVS Cardiac arrest with ROSC Acute DVT Right pneumothorax Shock (septic +/- cardiogenic) Possible aspiration pneumonia SIERRA Altered mental status/acute encephalopathy Elevated serum transaminases, likely shock liver Metabolic acidosis Obesity Retro-peritoneal Hematoma Leukocytosis Hypokalemia Lactic acidosis - continue life vest; ACS w/up per cardiology - continue HD/UF for toxin and volume clearance; may need permacath - continue anticoagulation while following H&H closely - continue care as below otherwise; - continue to wean supplemental oxygen for target O2 sat's > 90% acutely - continue Midodrine for BP support - continue BIPAP scheduled qhs with prn daytime use - aspiration precautions - continue bronchodilators with pulmonary hygiene per RT - continue accuchecks with glycemic control per SSI (While critically ill target blood glucose of 140-180 mg/dL; avoid hypoglycemia) - avoid nephrotoxins, renally dose all medications - continue to avoid benzodiazepine's, reduce the possibility of delirium - AB's per ID rec's - prn analgesia per pain score - Maintenance of sleep-wake cycle, avoid delirium - G.I. & VTE prophylaxis - PT/OT/ROM exercises - continue mobility protocols for pressure ulcer prophylaxis - Monitor hemodynamics closely - continue other care per attending / other consultants - discharge planning ongoing concurrently COVID SPECIFIC INTERVENTIONS - COVID-19 PCR negative .... Re-evaluate in am & prn Subjective Date of service: 12/17/21 Principal diagnosis: AHRF; Cardiac arrest; R. pneumothorax; pneumonia; AMS; DVT's; SIERRA; Obesity Interval history: Patient is seen today for: Acute hypoxemic respiratory failure; Cardiac arrest with ROSC; Right pneumothorax; pneumonia; AMS; bilateral DVT's; SIERRA; Obesity Seen and examined at bedside; 24hour events reviewed; nursing and respiratory ca re staff consulted; no adverse overnight events reported to me; resting in bed; remains on supplemental oxygen; remains dialysis dependent; no gross bleeding Objective Vital Signs - 12hr 12/17/21 12/17/21 12/17/21 04:47 07:00 07:15 Temperature 98.6 F Pulse Rate 59 L 89 41 L Pulse Rate [ From Monitor] Respiratory 16 Rate Blood Pressure 121/72 122/63 Blood Pressure [Left] O2 Sat by Pulse 100 100 Oximetry O2 Sat by Pulse Oximetry [ Anterior Bilateral Throughout] 12/17/21 12/17/21 12/17/21 07:20 09:00 09:02 Temperature 97.4 F L 97.4 F L Pulse Rate 52 L 92 H Pulse Rate [ From Monitor] Respiratory 20 20 Rate Blood Pressure 106/59 Blood Pressure 113/65 [Left] O2 Sat by Pulse 98 100 Oximetry O2 Sat by Pulse 100 Oximetry [ Anterior Bilateral Throughout] 12/17/21 12/17/21 12/17/21 09:05 09:15 09:30 Temperature Pulse Rate 96 H 80 76 Pulse Rate [ From Monitor] Respiratory Rate Blood Pressure 111/62 120/67 127/61 Blood Pressure [Left] O2 Sat by Pulse Oximetry O2 Sat by Pulse Oximetry [ Anterior Bilateral Throughout] 12/17/21 12/17/21 12/17/21 09:45 10:00 10:15 Temperature Pulse Rate 102 H 88 61 Pulse Rate [ 89 From Monitor] Respiratory 18 Rate Blood Pressure 117/70 136/58 126/65 Blood Pressure [Left] O2 Sat by Pulse 99 Oximetry O2 Sat by Pulse Oximetry [ Anterior Bilateral Throughout] 12/17/21 12/17/21 12/17/21 10:30 10:45 11:00 Temperature Pulse Rate 81 88 76 Pulse Rate [ From Monitor] Respiratory Rate Blood Pressure 132/72 122/65 134/57 Blood Pressure [Left] O2 Sat by Pulse Oximetry O2 Sat by Pulse Oximetry [ Anterior Bilateral Throughout] 12/17/21 12/17/21 12/17/21 11:15 11:35 11:45 Temperature 97.3 F L Pulse Rate 65 69 89 Pulse Rate [ From Monitor] Respiratory 20 Rate Blood Pressure 136/76 118/73 112/54 Blood Pressure [Left] O2 Sat by Pulse Oximetry O2 Sat by Pulse 100 Oximetry [ Anterior Bilateral Throughout] Constitutional: no acute distress, alert, other (elderly obese female with mildly increased respiratory effort at rest ) Eyes: non-icteric ENT: oropharynx moist Neck: supple, no lymphadenopathy, no JVD, other (large circumference) Effort: mildly labored Ascultation: Bilateral: diminished breath sounds, rhonchi (bases) Percussion: Bilateral: not dull Cardiovascular: regular rate and rhythm, other (no R/M) Gastrointestinal: normoactive bowel sounds, soft, non-tender, other (obese) Integumentary: normal, other (Left flank ecchymosis with induration) Extremities: no cyanosis, pulses normal, no ischemia or petechiae, edema (2+) Neurologic: normal mental status, non-focal exam (grossly), pupils equal and round, motor strength normal and (weak) Psychiatric: mood appropriate, affect normal CBC and BMP: 12/20/21 05:22 12/20/21 05:22 ABG, PT/INR, D-dimer: ABG ABG pH 7.333 pH Units (7.350-7.450) L 12/12/21 14:10 ABG pCO2 50.1 mm Hg 12/12/21 14:10 ABG pO2 57.0 mm Hg (80.0-90.0) L 12/12/21 14:10 ABG O2 Saturation 88.0 % (95.0-99.0) L 12/12/21 14:10 PT/INR, D-dimer PT 16.8 Sec. (12.2-14.9) H 12/16/21 21:05 INR 1.22 (0.87-1.13) H 12/16/21 21:05 D-Dimer > 09790 ng/mlDDU (0-234) H 10/30/21 Unknown Abnormal lab findings: Abnormal Labs 10/29/21 10/29/21 10/29/21 15:10 15:10 15:10 WBC 27.8 H RBC Hgb Hct MCH 27 L RDW Plt Count Lymph % (Auto) [place] % (Auto) Lymph # (Auto) [place] # (Auto) Seg Neutrophils % Seg Neuts % (Manual) 78.0 H Lymphocytes % (Manual) 10.0 L Monocytes % (Manual) Basophils % (Manual) Nucleated RBC % Seg Neutrophils # Seg Neutrophils # Man 21.7 H Lymphocytes # (Manual) Monocytes # (Manual) 1.4 H Eosinophils # (Manual) Basophils # (Manual) PT INR APTT D-Dimer Heparin Anti-Xa Level ABG pH ABG pO2 ABG HCO3 ABG O2 Saturation ABG Base Excess ABG Hemoglobin Oxyhemoglobin Sodium Potassium Chloride Carbon Dioxide BUN Creatinine Glucose POC Glucose Hemoglobin A1c Lactic Acid 6.80 H* Calcium Phosphorus Magnesium Ferritin AST ALT Alkaline Phosphatase Lactate Dehydrogenase Troponin T 0.089 H C-Reactive Protein Total Protein Albumin LDL Cholesterol Direct Urine Creatinine Urine Total Protein Salicylates Acetaminophen Crossmatch 02/05/22 02/05/22 02/05/22 15:10 15:10 15:10 WBC RBC Hgb Hct MCH RDW Plt Count Lymph % (Auto) [place] % (Auto) Lymph # (Auto) [place] # (Auto) Seg Neutrophils % Seg Neuts % (Manual) Lymphocytes % (Manual) Monocytes % (Manual) Basophils % (Manual) Nucleated RBC % Seg Neutrophils # Seg Neutrophils # Man Lymphocytes # (Manual) Monocytes # (Manual) Eosinophils # (Manual) Basophils # (Manual) PT INR APTT D-Dimer Heparin Anti-Xa Level ABG pH ABG pO2 ABG HCO3 ABG O2 Saturation ABG Base Excess ABG Hemoglobin Oxyhemoglobin Sodium 136 L Potassium 2.8 L* Chloride 93.4 L Carbon Dioxide 20 L BUN Creatinine Glucose 330 H POC Glucose Hemoglobin A1c Lactic Acid Calcium Phosphorus Magnesium Ferritin AST 1013 H ALT 1289 H Alkaline Phosphatase 246 H Lactate Dehydrogenase Troponin T C-Reactive Protein Total Protein Albumin LDL Cholesterol Direct Urine Creatinine Urine Total Protein Salicylates < 0.3 L Acetaminophen 5.0 L Crossmatch 10/29/21 10/29/21 10/29/21 15:11 16:01 19:29 WBC RBC Hgb Hct MCH RDW Plt Count Lymph % (Auto) [place] % (Auto) Lymph # (Auto) [place] # (Auto) Seg Neutrophils % Seg Neuts % (Manual) Lymphocytes % (Manual) Monocytes % (Manual) Basophils % (Manual) Nucleated RBC % Seg Neutrophils # Seg Neutrophils # Man Lymphocytes # (Manual) Monocytes # (Manual) Eosinophils # (Manual) Basophils # (Manual) PT INR APTT D-Dimer Heparin Anti-Xa Level ABG pH 7.307 L ABG pO2 64.1 L ABG HCO3 ABG O2 Saturation 90.8 L ABG Base Excess -2.9 L ABG Hemoglobin Oxyhemoglobin 89.3 L Sodium Potassium Chloride Carbon Dioxide BUN Creatinine Glucose POC Glucose Hemoglobin A1c Lactic Acid 2.60 H* Calcium Phosphorus Magnesium 2.90 H Ferritin AST ALT Alkaline Phosphatase Lactate Dehydrogenase Troponin T C-Reactive Protein Total Protein Albumin LDL Cholesterol Direct Urine Creatinine Urine Total Protein Salicylates Acetaminophen Crossmatch 10/29/21 10/29/21 10/30/21 19:40 22:34 04:30 WBC 16.2 H RBC Hgb Hct MCH 26 L RDW 15.5 H Plt Count Lymph % (Auto) 6.2 L [place] % (Auto) Lymph # (Auto) 1.0 L [place] # (Auto) 0.9 H Seg Neutrophils % 88.1 H Seg Neuts % (Manual) Lymphocytes % (Manual) Monocytes % (Manual) Basophils % (Manual) Nucleated RBC % Seg Neutrophils # 14.2 H Seg Neutrophils # Man Lymphocytes # (Manual) Monocytes # (Manual) Eosinophils # (Manual) Basophils # (Manual) PT INR APTT D-Dimer Heparin Anti-Xa Level ABG pH ABG pO2 ABG HCO3 ABG O2 Saturation ABG Base Excess ABG Hemoglobin Oxyhemoglobin Sodium Potassium Chloride Carbon Dioxide BUN Creatinine Glucose POC Glucose Hemoglobin A1c Lactic Acid Calcium Phosphorus Magnesium Ferritin AST ALT Alkaline Phosphatase Lactate Dehydrogenase Troponin T 1.950 H* D 1.150 H* D C-Reactive Protein Total Protein Albumin LDL Cholesterol Direct 43 L Urine Creatinine Urine Total Protein Salicylates Acetaminophen Crossmatch 10/30/21 10/30/21 10/30/21 04:30 04:35 05:45 WBC RBC Hgb Hct MCH RDW Plt Count Lymph % (Auto) [place] % (Auto) Lymph # (Auto) [place] # (Auto) Seg Neutrophils % Seg Neuts % (Manual) Lymphocytes % (Manual) Monocytes % (Manual) Basophils % (Manual) Nucleated RBC % Seg Neutrophils # Seg Neutrophils # Man Lymphocytes # (Manual) Monocytes # (Manual) Eosinophils # (Manual) Basophils # (Manual) PT INR APTT D-Dimer Heparin Anti-Xa Level ABG pH ABG pO2 69.5 L ABG HCO3 ABG O2 Saturation ABG Base Excess -2.7 L ABG Hemoglobin Oxyhemoglobin 94.7 L Sodium Potassium Chloride Carbon Dioxide 21 L BUN Creatinine Glucose 159 H POC Glucose 151 H Hemoglobin A1c Lactic Acid Calcium 7.9 L D Phosphorus Magnesium Ferritin AST 461 H ALT 686 H Alkaline Phosphatase 130 H Lactate Dehydrogenase Troponin T C-Reactive Protein Total Protein 5.6 L D Albumin 3.2 L LDL Cholesterol Direct Urine Creatinine Urine Total Protein Salicylates Acetaminophen Crossmatch 10/30/21 10/30/21 10/30/21 11:24 15:59 16:30 WBC RBC Hgb Hct MCH RDW Plt Count Lymph % (Auto) [place] % (Auto) Lymph # (Auto) [place] # (Auto) Seg Neutrophils % Seg Neuts % (Manual) Lymphocytes % (Manual) Monocytes % (Manual) Basophils % (Manual) Nucleated RBC % Seg Neutrophils # Seg Neutrophils # Man Lymphocytes # (Manual) Monocytes # (Manual) Eosinophils # (Manual) Basophils # (Manual) PT 17.2 H INR 1.27 H APTT 44.4 H D-Dimer Heparin Anti-Xa Level ABG pH ABG pO2 ABG HCO3 ABG O2 Saturation ABG Base Excess ABG Hemoglobin Oxyhemoglobin Sodium Potassium Chloride Carbon Dioxide BUN Creatinine Glucose POC Glucose 153 H 109 H Hemoglobin A1c Lactic Acid Calcium Phosphorus Magnesium Ferritin AST ALT Alkaline Phosphatase Lactate Dehydrogenase Troponin T C-Reactive Protein Total Protein Albumin LDL Cholesterol Direct Urine Creatinine Urine Total Protein Salicylates Acetaminophen Crossmatch 10/30/21 10/30/21 10/30/21 23:00 Unknown Unknown WBC RBC Hgb Hct MCH RDW Plt Count Lymph % (Auto) [place] % (Auto) Lymph # (Auto) [place] # (Auto) Seg Neutrophils % Seg Neuts % (Manual) Lymphocytes % (Manual) Monocytes % (Manual) Basophils % (Manual) Nucleated RBC % Seg Neutrophils # Seg Neutrophils # Man Lymphocytes # (Manual) Monocytes # (Manual) Eosinophils # (Manual) Basophils # (Manual) PT INR APTT D-Dimer > 46173 H Heparin Anti-Xa Level 0.82 H ABG pH ABG pO2 ABG HCO3 ABG O2 Saturation ABG Base Excess ABG Hemoglobin Oxyhemoglobin Sodium Potassium Chloride Carbon Dioxide BUN Creatinine Glucose POC Glucose Hemoglobin A1c Lactic Acid Calcium Phosphorus Magnesium Ferritin 208.4 H AST ALT Alkaline Phosphatase Lactate Dehydrogenase Troponin T C-Reactive Protein Total Protein Albumin LDL Cholesterol Direct Urine Creatinine Urine Total Protein Salicylates Acetaminophen Crossmatch 10/30/21 10/31/21 10/31/21 Unknown 04:30 04:30 WBC 14.4 H RBC Hgb Hct MCH 26 L RDW Plt Count Lymph % (Auto) [place] % (Auto) Lymph # (Auto) [place] # (Auto) Seg Neutrophils % Seg Neuts % (Manual) Lymphocytes % (Manual) Monocytes % (Manual) Basophils % (Manual) Nucleated RBC % Seg Neutrophils # Seg Neutrophils # Man Lymphocytes # (Manual) Monocytes # (Manual) Eosinophils # (Manual) Basophils # (Manual) PT INR APTT D-Dimer Heparin Anti-Xa Level ABG pH ABG pO2 ABG HCO3 ABG O2 Saturation ABG Base Excess ABG Hemoglobin Oxyhemoglobin Sodium Potassium 3.5 L Chloride 107.5 H Carbon Dioxide 20 L BUN 28 H Creatinine 1.7 H Glucose 113 H POC Glucose Hemoglobin A1c Lactic Acid Calcium 7.9 L Phosphorus Magnesium Ferritin AST ALT Alkaline Phosphatase Lactate Dehydrogenase 469 H Troponin T C-Reactive Protein 13.40 H Total Protein Albumin LDL Cholesterol Direct Urine Creatinine Urine Total Protein Salicylates Acetaminophen Crossmatch 10/31/21 10/31/21 10/31/21 04:30 05:11 15:30 WBC RBC Hgb Hct MCH RDW Plt Count Lymph % (Auto) [place] % (Auto) Lymph # (Auto) [place] # (Auto) Seg Neutrophils % Seg Neuts % (Manual) Lymphocytes % (Manual) Monocytes % (Manual) Basophils % (Manual) Nucleated RBC % Seg Neutrophils # Seg Neutrophils # Man Lymphocytes # (Manual) Monocytes # (Manual) Eosinophils # (Manual) Basophils # (Manual) PT INR APTT D-Dimer Heparin Anti-Xa Level ABG pH 7.222 L ABG pO2 61.5 L ABG HCO3 ABG O2 Saturation 86.2 L ABG Base Excess -6.3 L ABG Hemoglobin 11.2 L Oxyhemoglobin 84.5 L Sodium Potassium Chloride Carbon Dioxide BUN Creatinine Glucose POC Glucose 106 H Hemoglobin A1c 6.7 H Lactic Acid Calcium Phosphorus Magnesium Ferritin AST ALT Alkaline Phosphatase Lactate Dehydrogenase Troponin T C-Reactive Protein Total Protein Albumin LDL Cholesterol Direct Urine Creatinine Urine Total Protein Salicylates Acetaminophen Crossmatch 10/31/21 10/31/21 10/31/21 16:07 16:35 17:45 WBC RBC Hgb Hct MCH RDW Plt Count Lymph % (Auto) [place] % (Auto) Lymph # (Auto) [place] # (Auto) Seg Neutrophils % Seg Neuts % (Manual) Lymphocytes % (Manual) Monocytes % (Manual) Basophils % (Manual) Nucleated RBC % Seg Neutrophils # Seg Neutrophils # Man Lymphocytes # (Manual) Monocytes # (Manual) Eosinophils # (Manual) Basophils # (Manual) PT INR APTT D-Dimer Heparin Anti-Xa Level ABG pH 7.267 L ABG pO2 58.3 L ABG HCO3 ABG O2 Saturation 88.3 L ABG Base Excess -5.9 L ABG Hemoglobin 10.1 L Oxyhemoglobin 86.5 L Sodium Potassium Chloride Carbon Dioxide BUN Creatinine Glucose POC Glucose 115 H Hemoglobin A1c Lactic Acid Calcium Phosphorus Magnesium Ferritin AST ALT Alkaline Phosphatase Lactate Dehydrogenase Troponin T C-Reactive Protein Total Protein Albumin LDL Cholesterol Direct Urine Creatinine 383.6 H Urine Total Protein Salicylates Acetaminophen Crossmatch 11/01/21 11/01/21 11/01/21 00:06 05:08 06:00 WBC 12.6 H RBC 3.43 L Hgb 8.9 L Hct 28.7 L MCH 26 L RDW 15.7 H Plt Count 130 L Lymph % (Auto) [place] % (Auto) Lymph # (Auto) [place] # (Auto) Seg Neutrophils % Seg Neuts % (Manual) Lymphocytes % (Manual) Monocytes % (Manual) Basophils % (Manual) Nucleated RBC % Seg Neutrophils # Seg Neutrophils # Man Lymphocytes # (Manual) Monocytes # (Manual) Eosinophils # (Manual) Basophils # (Manual) PT INR APTT D-Dimer Heparin Anti-Xa Level ABG pH ABG pO2 ABG HCO3 ABG O2 Saturation ABG Base Excess ABG Hemoglobin Oxyhemoglobin Sodium Potassium Chloride Carbon Dioxide BUN Creatinine Glucose POC Glucose 114 H 120 H Hemoglobin A1c Lactic Acid Calcium Phosphorus Magnesium Ferritin AST ALT Alkaline Phosphatase Lactate Dehydrogenase Troponin T C-Reactive Protein Total Protein Albumin LDL Cholesterol Direct Urine Creatinine Urine Total Protein Salicylates Acetaminophen Crossmatch 11/01/21 11/01/21 11/01/21 06:00 11:43 14:00 WBC RBC Hgb Hct MCH RDW Plt Count Lymph % (Auto) [place] % (Auto) Lymph # (Auto) [place] # (Auto) Seg Neutrophils % Seg Neuts % (Manual) Lymphocytes % (Manual) Monocytes % (Manual) Basophils % (Manual) Nucleated RBC % Seg Neutrophils # Seg Neutrophils # Man Lymphocytes # (Manual) Monocytes # (Manual) Eosinophils # (Manual) Basophils # (Manual) PT INR APTT D-Dimer Heparin Anti-Xa Level ABG pH 7.349 L ABG pO2 75.6 L ABG HCO3 ABG O2 Saturation ABG Base Excess -3.9 L ABG Hemoglobin 9.8 L Oxyhemoglobin 93.5 L Sodium Potassium Chloride 114.1 H Carbon Dioxide 20 L BUN 33 H Creatinine Glucose 131 H POC Glucose 151 H Hemoglobin A1c Lactic Acid Calcium 7.7 L Phosphorus Magnesium Ferritin AST 79 H ALT 259 H Alkaline Phosphatase Lactate Dehydrogenase Troponin T C-Reactive Protein Total Protein 5.5 L Albumin 2.7 L LDL Cholesterol Direct Urine Creatinine Urine Total Protein Salicylates Acetaminophen Crossmatch 11/01/21 11/01/21 11/02/21 16:45 22:55 05:12 WBC RBC Hgb Hct MCH RDW Plt Count Lymph % (Auto) [place] % (Auto) Lymph # (Auto) [place] # (Auto) Seg Neutrophils % Seg Neuts % (Manual) Lymphocytes % (Manual) Monocytes % (Manual) Basophils % (Manual) Nucleated RBC % Seg Neutrophils # Seg Neutrophils # Man Lymphocytes # (Manual) Monocytes # (Manual) Eosinophils # (Manual) Basophils # (Manual) PT INR APTT D-Dimer Heparin Anti-Xa Level ABG pH ABG pO2 ABG HCO3 ABG O2 Saturation ABG Base Excess ABG Hemoglobin Oxyhemoglobin Sodium Potassium Chloride Carbon Dioxide BUN Creatinine Glucose POC Glucose 119 H 129 H 140 H Hemoglobin A1c Lactic Acid Calcium Phosphorus Magnesium Ferritin AST ALT Alkaline Phosphatase Lactate Dehydrogenase Troponin T C-Reactive Protein Total Protein Albumin LDL Cholesterol Direct Urine Creatinine Urine Total Protein Salicylates Acetaminophen Crossmatch 11/02/21 11/02/21 11/02/21 05:35 05:35 09:35 WBC 13.5 H RBC 3.60 L Hgb 9.7 L Hct MCH 27 L RDW 15.7 H Plt Count Lymph % (Auto) [place] % (Auto) Lymph # (Auto) [place] # (Auto) Seg Neutrophils % Seg Neuts % (Manual) Lymphocytes % (Manual) Monocytes % (Manual) Basophils % (Manual) Nucleated RBC % Seg Neutrophils # Seg Neutrophils # Man Lymphocytes # (Manual) Monocytes # (Manual) Eosinophils # (Manual) Basophils # (Manual) PT INR APTT D-Dimer Heparin Anti-Xa Level ABG pH 7.208 L ABG pO2 75.9 L ABG HCO3 ABG O2 Saturation 93.6 L ABG Base Excess -4.3 L ABG Hemoglobin 9.1 L Oxyhemoglobin 91.6 L Sodium Potassium 5.2 H D Chloride 112.6 H Carbon Dioxide BUN 32 H Creatinine Glucose 152 H POC Glucose Hemoglobin A1c Lactic Acid Calcium 8.2 L Phosphorus Magnesium 2.70 H Ferritin AST ALT Alkaline Phosphatase Lactate Dehydrogenase Troponin T C-Reactive Protein Total Protein Albumin LDL Cholesterol Direct Urine Creatinine Urine Total Protein Salicylates Acetaminophen Crossmatch 11/02/21 11/02/21 11/02/21 11:44 17:13 23:43 WBC RBC Hgb Hct MCH RDW Plt Count Lymph % (Auto) [place] % (Auto) Lymph # (Auto) [place] # (Auto) Seg Neutrophils % Seg Neuts % (Manual) Lymphocytes % (Manual) Monocytes % (Manual) Basophils % (Manual) Nucleated RBC % Seg Neutrophils # Seg Neutrophils # Man Lymphocytes # (Manual) Monocytes # (Manual) Eosinophils # (Manual) Basophils # (Manual) PT INR APTT D-Dimer Heparin Anti-Xa Level ABG pH ABG pO2 ABG HCO3 ABG O2 Saturation ABG Base Excess ABG Hemoglobin Oxyhemoglobin Sodium Potassium Chloride Carbon Dioxide BUN Creatinine Glucose POC Glucose 173 H 148 H 137 H Hemoglobin A1c Lactic Acid Calcium Phosphorus Magnesium Ferritin AST ALT Alkaline Phosphatase Lactate Dehydrogenase Troponin T C-Reactive Protein Total Protein Albumin LDL Cholesterol Direct Urine Creatinine Urine Total Protein Salicylates Acetaminophen Crossmatch 11/03/21 11/03/21 11/03/21 04:59 06:00 06:00 WBC RBC 3.43 L Hgb 9.1 L Hct 29.0 L MCH 26 L RDW 16.4 H Plt Count Lymph % (Auto) [place] % (Auto) Lymph # (Auto) [place] # (Auto) Seg Neutrophils % Seg Neuts % (Manual) Lymphocytes % (Manual) Monocytes % (Manual) Basophils % (Manual) Nucleated RBC % Seg Neutrophils # Seg Neutrophils # Man Lymphocytes # (Manual) Monocytes # (Manual) Eosinophils # (Manual) Basophils # (Manual) PT INR APTT D-Dimer Heparin Anti-Xa Level 0.17 L ABG pH ABG pO2 ABG HCO3 ABG O2 Saturation ABG Base Excess ABG Hemoglobin Oxyhemoglobin Sodium Potassium Chloride Carbon Dioxide BUN Creatinine Glucose POC Glucose 167 H Hemoglobin A1c Lactic Acid Calcium Phosphorus Magnesium Ferritin AST ALT Alkaline Phosphatase Lactate Dehydrogenase Troponin T C-Reactive Protein Total Protein Albumin LDL Cholesterol Direct Urine Creatinine Urine Total Protein Salicylates Acetaminophen Crossmatch 11/03/21 11/03/21 11/03/21 06:00 09:20 11:58 WBC RBC Hgb Hct MCH RDW Plt Count Lymph % (Auto) [place] % (Auto) Lymph # (Auto) [place] # (Auto) Seg Neutrophils % Seg Neuts % (Manual) Lymphocytes % (Manual) Monocytes % (Manual) Basophils % (Manual) Nucleated RBC % Seg Neutrophils # Seg Neutrophils # Man Lymphocytes # (Manual) Monocytes # (Manual) Eosinophils # (Manual) Basophils # (Manual) PT INR APTT D-Dimer Heparin Anti-Xa Level ABG pH 7.274 L ABG pO2 75.6 L ABG HCO3 ABG O2 Saturation 94.9 L ABG Base Excess -2.5 L ABG Hemoglobin 9.3 L Oxyhemoglobin 92.9 L Sodium 149 H Potassium Chloride 117.5 H Carbon Dioxide BUN 32 H Creatinine Glucose 173 H POC Glucose 192 H Hemoglobin A1c Lactic Acid Calcium 8.1 L Phosphorus Magnesium Ferritin AST ALT Alkaline Phosphatase Lactate Dehydrogenase Troponin T C-Reactive Protein Total Protein Albumin LDL Cholesterol Direct Urine Creatinine Urine Total Protein Salicylates Acetaminophen Crossmatch 11/03/21 11/03/21 11/04/21 18:22 Unknown 00:09 WBC RBC Hgb Hct MCH RDW Plt Count Lymph % (Auto) [place] % (Auto) Lymph # (Auto) [place] # (Auto) Seg Neutrophils % Seg Neuts % (Manual) Lymphocytes % (Manual) Monocytes % (Manual) Basophils % (Manual) Nucleated RBC % Seg Neutrophils # Seg Neutrophils # Man Lymphocytes # (Manual) Monocytes # (Manual) Eosinophils # (Manual) Basophils # (Manual) PT INR APTT D-Dimer Heparin Anti-Xa Level 0.29 L ABG pH ABG pO2 ABG HCO3 ABG O2 Saturation ABG Base Excess ABG Hemoglobin Oxyhemoglobin Sodium Potassium Chloride Carbon Dioxide BUN Creatinine Glucose POC Glucose 178 H 221 H Hemoglobin A1c Lactic Acid Calcium Phosphorus Magnesium Ferritin AST ALT Alkaline Phosphatase Lactate Dehydrogenase Troponin T C-Reactive Protein Total Protein Albumin LDL Cholesterol Direct Urine Creatinine Urine Total Protein Salicylates Acetaminophen Crossmatch 11/04/21 11/04/21 11/04/21 05:09 09:40 09:40 WBC 16.8 H RBC Hgb Hct MCH 27 L RDW 16.5 H Plt Count Lymph % (Auto) [place] % (Auto) Lymph # (Auto) [place] # (Auto) Seg Neutrophils % Seg Neuts % (Manual) Lymphocytes % (Manual) Monocytes % (Manual) Basophils % (Manual) Nucleated RBC % Seg Neutrophils # Seg Neutrophils # Man Lymphocytes # (Manual) Monocytes # (Manual) Eosinophils # (Manual) Basophils # (Manual) PT INR APTT D-Dimer Heparin Anti-Xa Level ABG pH ABG pO2 ABG HCO3 ABG O2 Saturation ABG Base Excess ABG Hemoglobin Oxyhemoglobin Sodium Potassium 5.9 H Chloride 108.5 H Carbon Dioxide BUN 54 H Creatinine 1.8 H Glucose 198 H POC Glucose 182 H Hemoglobin A1c Lactic Acid Calcium Phosphorus Magnesium 3.00 H Ferritin AST ALT Alkaline Phosphatase Lactate Dehydrogenase Troponin T C-Reactive Protein Total Protein Albumin LDL Cholesterol Direct Urine Creatinine Urine Total Protein Salicylates Acetaminophen Crossmatch 11/04/21 11/04/21 11/04/21 12:13 13:34 14:05 WBC RBC Hgb Hct MCH RDW Plt Count Lymph % (Auto) [place] % (Auto) Lymph # (Auto) [place] # (Auto) Seg Neutrophils % Seg Neuts % (Manual) Lymphocytes % (Manual) Monocytes % (Manual) Basophils % (Manual) Nucleated RBC % Seg Neutrophils # Seg Neutrophils # Man Lymphocytes # (Manual) Monocytes # (Manual) Eosinophils # (Manual) Basophils # (Manual) PT INR APTT D-Dimer Heparin Anti-Xa Level ABG pH 7.223 L ABG pO2 71.3 L ABG HCO3 ABG O2 Saturation 92.8 L ABG Base Excess ABG Hemoglobin 8.2 L Oxyhemoglobin 91.0 L Sodium Potassium Chloride Carbon Dioxide BUN Creatinine Glucose POC Glucose 184 H Hemoglobin A1c Lactic Acid Calcium Phosphorus Magnesium Ferritin AST ALT Alkaline Phosphatase Lactate Dehydrogenase Troponin T C-Reactive Protein Total Protein Albumin LDL Cholesterol Direct Urine Creatinine 184.6 H Urine Total Protein Salicylates Acetaminophen Crossmatch 11/04/21 11/04/21 11/05/21 18:02 Unknown 00:07 WBC RBC Hgb Hct MCH RDW Plt Count Lymph % (Auto) [place] % (Auto) Lymph # (Auto) [place] # (Auto) Seg Neutrophils % Seg Neuts % (Manual) Lymphocytes % (Manual) Monocytes % (Manual) Basophils % (Manual) Nucleated RBC % Seg Neutrophils # Seg Neutrophils # Man Lymphocytes # (Manual) Monocytes # (Manual) Eosinophils # (Manual) Basophils # (Manual) PT INR APTT D-Dimer Heparin Anti-Xa Level ABG pH ABG pO2 ABG HCO3 ABG O2 Saturation ABG Base Excess ABG Hemoglobin Oxyhemoglobin Sodium Potassium Chloride Carbon Dioxide BUN Creatinine Glucose POC Glucose 262 H 259 H Hemoglobin A1c Lactic Acid Calcium Phosphorus Magnesium Ferritin AST ALT Alkaline Phosphatase Lactate Dehydrogenase Troponin T C-Reactive Protein Total Protein Albumin LDL Cholesterol Direct Urine Creatinine 190.9 H Urine Total Protein 172 H Salicylates Acetaminophen Crossmatch 11/05/21 11/05/21 11/05/21 04:20 04:20 05:30 WBC 17.9 H RBC 3.64 L Hgb 9.7 L Hct MCH 27 L RDW 16.4 H Plt Count Lymph % (Auto) [place] % (Auto) Lymph # (Auto) [place] # (Auto) Seg Neutrophils % Seg Neuts % (Manual) Lymphocytes % (Manual) Monocytes % (Manual) Basophils % (Manual) Nucleated RBC % Seg Neutrophils # Seg Neutrophils # Man Lymphocytes # (Manual) Monocytes # (Manual) Eosinophils # (Manual) Basophils # (Manual) PT INR APTT D-Dimer Heparin Anti-Xa Level ABG pH ABG pO2 ABG HCO3 ABG O2 Saturation ABG Base Excess ABG Hemoglobin Oxyhemoglobin Sodium Potassium 5.6 H Chloride 108.4 H Carbon Dioxide BUN 71 H Creatinine 1.9 H Glucose 270 H POC Glucose 283 H Hemoglobin A1c Lactic Acid Calcium Phosphorus Magnesium Ferritin AST ALT Alkaline Phosphatase Lactate Dehydrogenase Troponin T C-Reactive Protein Total Protein Albumin LDL Cholesterol Direct Urine Creatinine Urine Total Protein Salicylates Acetaminophen Crossmatch 11/05/21 11/05/21 11/05/21 10:05 12:10 15:29 WBC RBC Hgb Hct MCH RDW Plt Count Lymph % (Auto) [place] % (Auto) Lymph # (Auto) [place] # (Auto) Seg Neutrophils % Seg Neuts % (Manual) Lymphocytes % (Manual) Monocytes % (Manual) Basophils % (Manual) Nucleated RBC % Seg Neutrophils # Seg Neutrophils # Man Lymphocytes # (Manual) Monocytes # (Manual) Eosinophils # (Manual) Basophils # (Manual) PT INR APTT D-Dimer Heparin Anti-Xa Level ABG pH 7.248 L ABG pO2 73.7 L ABG HCO3 26.2 H ABG O2 Saturation 93.1 L ABG Base Excess ABG Hemoglobin 8.9 L Oxyhemoglobin 91.4 L Sodium Potassium Chloride Carbon Dioxide BUN Creatinine Glucose POC Glucose 225 H 199 H Hemoglobin A1c Lactic Acid Calcium Phosphorus Magnesium Ferritin AST ALT Alkaline Phosphatase Lactate Dehydrogenase Troponin T C-Reactive Protein Total Protein Albumin LDL Cholesterol Direct Urine Creatinine Urine Total Protein Salicylates Acetaminophen Crossmatch 11/05/21 11/05/21 11/05/21 15:51 17:32 17:40 WBC RBC Hgb Hct MCH RDW Plt Count Lymph % (Auto) [place] % (Auto) Lymph # (Auto) [place] # (Auto) Seg Neutrophils % Seg Neuts % (Manual) Lymphocytes % (Manual) Monocytes % (Manual) Basophils % (Manual) Nucleated RBC % Seg Neutrophils # Seg Neutrophils # Man Lymphocytes # (Manual) Monocytes # (Manual) Eosinophils # (Manual) Basophils # (Manual) PT INR APTT D-Dimer Heparin Anti-Xa Level ABG pH ABG pO2 ABG HCO3 ABG O2 Saturation ABG Base Excess ABG Hemoglobin Oxyhemoglobin Sodium Potassium 5.2 H Chloride 107.8 H Carbon Dioxide BUN 79 H Creatinine 1.9 H Glucose 204 H POC Glucose 278 H 197 H Hemoglobin A1c Lactic Acid Calcium Phosphorus Magnesium Ferritin AST ALT Alkaline Phosphatase Lactate Dehydrogenase Troponin T C-Reactive Protein Total Protein Albumin LDL Cholesterol Direct Urine Creatinine Urine Total Protein Salicylates Acetaminophen Crossmatch 11/05/21 11/05/21 11/05/21 21:25 22:22 23:43 WBC RBC Hgb Hct MCH RDW Plt Count Lymph % (Auto) [place] % (Auto) Lymph # (Auto) [place] # (Auto) Seg Neutrophils % Seg Neuts % (Manual) Lymphocytes % (Manual) Monocytes % (Manual) Basophils % (Manual) Nucleated RBC % Seg Neutrophils # Seg Neutrophils # Man Lymphocytes # (Manual) Monocytes # (Manual) Eosinophils # (Manual) Basophils # (Manual) PT INR APTT D-Dimer Heparin Anti-Xa Level ABG pH ABG pO2 ABG HCO3 ABG O2 Saturation ABG Base Excess ABG Hemoglobin Oxyhemoglobin Sodium Potassium 5.3 H Chloride 109.2 H Carbon Dioxide BUN 81 H Creatinine 2.0 H Glucose 195 H POC Glucose 180 H 203 H Hemoglobin A1c Lactic Acid Calcium Phosphorus Magnesium Ferritin AST ALT Alkaline Phosphatase Lactate Dehydrogenase Troponin T C-Reactive Protein Total Protein Albumin LDL Cholesterol Direct Urine Creatinine Urine Total Protein Salicylates Acetaminophen Crossmatch 11/05/21 11/06/21 11/06/21 Unknown 02:35 05:09 WBC RBC Hgb Hct MCH RDW Plt Count Lymph % (Auto) [place] % (Auto) Lymph # (Auto) [place] # (Auto) Seg Neutrophils % Seg Neuts % (Manual) Lymphocytes % (Manual) Monocytes % (Manual) Basophils % (Manual) Nucleated RBC % Seg Neutrophils # Seg Neutrophils # Man Lymphocytes # (Manual) Monocytes # (Manual) Eosinophils # (Manual) Basophils # (Manual) PT INR APTT D-Dimer Heparin Anti-Xa Level ABG pH ABG pO2 ABG HCO3 ABG O2 Saturation ABG Base Excess ABG Hemoglobin Oxyhemoglobin Sodium 146 H Potassium 6.0 H Chloride 108.1 H 107.1 H Carbon Dioxide 21 L BUN 80 H 84 H Creatinine 2.0 H 2.0 H Glucose 238 H 235 H POC Glucose 215 H Hemoglobin A1c Lactic Acid Calcium Phosphorus Magnesium 2.80 H Ferritin AST ALT 77 H Alkaline Phosphatase Lactate Dehydrogenase Troponin T C-Reactive Protein Total Protein Albumin 3.0 L LDL Cholesterol Direct Urine Creatinine Urine Total Protein Salicylates Acetaminophen Crossmatch 11/06/21 11/06/21 11/06/21 05:40 08:07 08:07 WBC RBC Hgb Hct MCH RDW Plt Count Lymph % (Auto) [place] % (Auto) Lymph # (Auto) [place] # (Auto) Seg Neutrophils % Seg Neuts % (Manual) Lymphocytes % (Manual) Monocytes % (Manual) Basophils % (Manual) Nucleated RBC % Seg Neutrophils # Seg Neutrophils # Man Lymphocytes # (Manual) Monocytes # (Manual) Eosinophils # (Manual) Basophils # (Manual) PT INR APTT D-Dimer Heparin Anti-Xa Level 1.24 H ABG pH 7.311 L ABG pO2 72.8 L ABG HCO3 29.7 H ABG O2 Saturation 94.1 L ABG Base Excess ABG Hemoglobin 11.4 L Oxyhemoglobin 92.3 L Sodium Potassium 5.2 H Chloride Carbon Dioxide BUN 85 H Creatinine 2.3 H Glucose 236 H POC Glucose Hemoglobin A1c Lactic Acid Calcium Phosphorus Magnesium Ferritin AST ALT Alkaline Phosphatase Lactate Dehydrogenase Troponin T C-Reactive Protein Total Protein Albumin LDL Cholesterol Direct Urine Creatinine Urine Total Protein Salicylates Acetaminophen Crossmatch 11/06/21 11/06/21 11/06/21 12:14 12:57 14:28 WBC RBC Hgb Hct MCH RDW Plt Count Lymph % (Auto) [place] % (Auto) Lymph # (Auto) [place] # (Auto) Seg Neutrophils % Seg Neuts % (Manual) Lymphocytes % (Manual) Monocytes % (Manual) Basophils % (Manual) Nucleated RBC % Seg Neutrophils # Seg Neutrophils # Man Lymphocytes # (Manual) Monocytes # (Manual) Eosinophils # (Manual) Basophils # (Manual) PT INR APTT D-Dimer Heparin Anti-Xa Level ABG pH 7.282 L ABG pO2 72.6 L ABG HCO3 30.8 H ABG O2 Saturation 93.7 L ABG Base Excess 3.2 H ABG Hemoglobin 8.6 L Oxyhemoglobin 91.8 L Sodium Potassium Chloride Carbon Dioxide BUN 91 H Creatinine 2.6 H Glucose 259 H POC Glucose 225 H Hemoglobin A1c Lactic Acid Calcium Phosphorus Magnesium Ferritin AST ALT Alkaline Phosphatase Lactate Dehydrogenase Troponin T C-Reactive Protein Total Protein Albumin LDL Cholesterol Direct Urine Creatinine Urine Total Protein Salicylates Acetaminophen Crossmatch 11/06/21 11/06/21 11/06/21 17:28 19:20 21:30 WBC RBC Hgb Hct MCH RDW Plt Count Lymph % (Auto) [place] % (Auto) Lymph # (Auto) [place] # (Auto) Seg Neutrophils % Seg Neuts % (Manual) Lymphocytes % (Manual) Monocytes % (Manual) Basophils % (Manual) Nucleated RBC % Seg Neutrophils # Seg Neutrophils # Man Lymphocytes # (Manual) Monocytes # (Manual) Eosinophils # (Manual) Basophils # (Manual) PT INR APTT D-Dimer Heparin Anti-Xa Level 0.73 H ABG pH ABG pO2 ABG HCO3 ABG O2 Saturation ABG Base Excess ABG Hemoglobin Oxyhemoglobin Sodium Potassium Chloride Carbon Dioxide BUN 95 H Creatinine 2.9 H Glucose 233 H POC Glucose 206 H Hemoglobin A1c Lactic Acid Calcium Phosphorus Magnesium Ferritin AST ALT Alkaline Phosphatase Lactate Dehydrogenase Troponin T C-Reactive Protein Total Protein Albumin LDL Cholesterol Direct Urine Creatinine Urine Total Protein Salicylates Acetaminophen Crossmatch 11/06/21 11/07/21 11/07/21 22:56 05:06 06:30 WBC RBC Hgb Hct MCH RDW Plt Count Lymph % (Auto) [place] % (Auto) Lymph # (Auto) [place] # (Auto) Seg Neutrophils % Seg Neuts % (Manual) Lymphocytes % (Manual) Monocytes % (Manual) Basophils % (Manual) Nucleated RBC % Seg Neutrophils # Seg Neutrophils # Man Lymphocytes # (Manual) Monocytes # (Manual) Eosinophils # (Manual) Basophils # (Manual) PT INR APTT D-Dimer Heparin Anti-Xa Level ABG pH ABG pO2 ABG HCO3 ABG O2 Saturation ABG Base Excess ABG Hemoglobin Oxyhemoglobin Sodium 146 H Potassium Chloride Carbon Dioxide BUN 98 H Creatinine 2.8 H Glucose 202 H POC Glucose 215 H 172 H Hemoglobin A1c Lactic Acid Calcium Phosphorus 4.90 H D Magnesium 2.90 H Ferritin AST ALT Alkaline Phosphatase Lactate Dehydrogenase Troponin T C-Reactive Protein Total Protein Albumin LDL Cholesterol Direct Urine Creatinine Urine Total Protein Salicylates Acetaminophen Crossmatch 11/07/21 11/07/21 11/07/21 06:30 11:26 12:15 WBC 16.0 H RBC 3.06 L Hgb 8.2 L Hct 26.1 L MCH 27 L RDW 16.2 H Plt Count Lymph % (Auto) [place] % (Auto) Lymph # (Auto) [place] # (Auto) Seg Neutrophils % Seg Neuts % (Manual) 77.0 H Lymphocytes % (Manual) 11.0 L Monocytes % (Manual) Basophils % (Manual) Nucleated RBC % 2.0 H Seg Neutrophils # Seg Neutrophils # Man 12.3 H Lymphocytes # (Manual) Monocytes # (Manual) Eosinophils # (Manual) Basophils # (Manual) PT INR APTT D-Dimer Heparin Anti-Xa Level ABG pH 7.298 L ABG pO2 73.0 L ABG HCO3 33.3 H ABG O2 Saturation 94.4 L ABG Base Excess 5.8 H ABG Hemoglobin 8.2 L Oxyhemoglobin 92.7 L Sodium Potassium Chloride Carbon Dioxide BUN Creatinine Glucose POC Glucose 179 H Hemoglobin A1c Lactic Acid Calcium Phosphorus Magnesium Ferritin AST ALT Alkaline Phosphatase Lactate Dehydrogenase Troponin T C-Reactive Protein Total Protein Albumin LDL Cholesterol Direct Urine Creatinine Urine Total Protein Salicylates Acetaminophen Crossmatch 11/07/21 11/07/21 11/07/21 17:57 22:16 23:49 WBC RBC Hgb Hct MCH RDW Plt Count Lymph % (Auto) [place] % (Auto) Lymph # (Auto) [place] # (Auto) Seg Neutrophils % Seg Neuts % (Manual) Lymphocytes % (Manual) Monocytes % (Manual) Basophils % (Manual) Nucleated RBC % Seg Neutrophils # Seg Neutrophils # Man Lymphocytes # (Manual) Monocytes # (Manual) Eosinophils # (Manual) Basophils # (Manual) PT INR APTT D-Dimer Heparin Anti-Xa Level ABG pH ABG pO2 ABG HCO3 ABG O2 Saturation ABG Base Excess ABG Hemoglobin Oxyhemoglobin Sodium Potassium Chloride Carbon Dioxide BUN Creatinine Glucose POC Glucose 166 H 223 H 190 H Hemoglobin A1c Lactic Acid Calcium Phosphorus Magnesium Ferritin AST ALT Alkaline Phosphatase Lactate Dehydrogenase Troponin T C-Reactive Protein Total Protein Albumin LDL Cholesterol Direct Urine Creatinine Urine Total Protein Salicylates Acetaminophen Crossmatch 11/08/21 11/08/21 11/08/21 04:20 04:20 06:16 WBC 22.1 H RBC 3.01 L Hgb 8.1 L Hct 25.6 L MCH 27 L RDW 15.4 H Plt Count Lymph % (Auto) [place] % (Auto) Lymph # (Auto) [place] # (Auto) Seg Neutrophils % Seg Neuts % (Manual) Lymphocytes % (Manual) Monocytes % (Manual) Basophils % (Manual) Nucleated RBC % Seg Neutrophils # Seg Neutrophils # Man Lymphocytes # (Manual) Monocytes # (Manual) Eosinophils # (Manual) Basophils # (Manual) PT INR APTT D-Dimer Heparin Anti-Xa Level ABG pH ABG pO2 ABG HCO3 ABG O2 Saturation ABG Base Excess ABG Hemoglobin Oxyhemoglobin Sodium 151 H Potassium 3.1 L D Chloride 107.3 H Carbon Dioxide 31 H BUN 82 H Creatinine 1.8 H Glucose 232 H POC Glucose 198 H Hemoglobin A1c Lactic Acid Calcium 8.1 L Phosphorus Magnesium Ferritin AST ALT Alkaline Phosphatase Lactate Dehydrogenase Troponin T C-Reactive Protein Total Protein Albumin LDL Cholesterol Direct Urine Creatinine Urine Total Protein Salicylates Acetaminophen Crossmatch 11/08/21 11/08/21 11/08/21 11:38 12:00 18:29 WBC RBC Hgb Hct MCH RDW Plt Count Lymph % (Auto) [place] % (Auto) Lymph # (Auto) [place] # (Auto) Seg Neutrophils % Seg Neuts % (Manual) Lymphocytes % (Manual) Monocytes % (Manual) Basophils % (Manual) Nucleated RBC % Seg Neutrophils # Seg Neutrophils # Man Lymphocytes # (Manual) Monocytes # (Manual) Eosinophils # (Manual) Basophils # (Manual) PT INR APTT D-Dimer Heparin Anti-Xa Level ABG pH ABG pO2 ABG HCO3 ABG O2 Saturation ABG Base Excess ABG Hemoglobin Oxyhemoglobin Sodium Potassium 3.0 L Chloride Carbon Dioxide BUN Creatinine Glucose POC Glucose 190 H 211 H Hemoglobin A1c Lactic Acid Calcium Phosphorus Magnesium Ferritin AST ALT Alkaline Phosphatase Lactate Dehydrogenase Troponin T C-Reactive Protein Total Protein Albumin LDL Cholesterol Direct Urine Creatinine Urine Total Protein Salicylates Acetaminophen Crossmatch 11/08/21 11/08/21 11/09/21 21:34 21:40 00:36 WBC RBC Hgb Hct MCH RDW Plt Count Lymph % (Auto) [place] % (Auto) Lymph # (Auto) [place] # (Auto) Seg Neutrophils % Seg Neuts % (Manual) Lymphocytes % (Manual) Monocytes % (Manual) Basophils % (Manual) Nucleated RBC % Seg Neutrophils # Seg Neutrophils # Man Lymphocytes # (Manual) Monocytes # (Manual) Eosinophils # (Manual) Basophils # (Manual) PT INR APTT D-Dimer Heparin Anti-Xa Level ABG pH ABG pO2 ABG HCO3 ABG O2 Saturation ABG Base Excess ABG Hemoglobin Oxyhemoglobin Sodium 148 H Potassium 2.8 L* Chloride Carbon Dioxide 31 H BUN 68 H Creatinine 1.5 H Glucose 191 H POC Glucose 194 H 140 H Hemoglobin A1c Lactic Acid Calcium 8.2 L Phosphorus Magnesium Ferritin AST ALT Alkaline Phosphatase Lactate Dehydrogenase Troponin T C-Reactive Protein Total Protein Albumin LDL Cholesterol Direct Urine Creatinine Urine Total Protein Salicylates Acetaminophen Crossmatch 02/16/22 02/16/22 02/16/22 04:51 04:51 04:51 WBC 27.6 H RBC 3.18 L Hgb 8.4 L Hct 26.6 L MCH 27 L RDW 15.3 H Plt Count Lymph % (Auto) [place] % (Auto) Lymph # (Auto) [place] # (Auto) Seg Neutrophils % Seg Neuts % (Manual) Lymphocytes % (Manual) Monocytes % (Manual) Basophils % (Manual) Nucleated RBC % Seg Neutrophils # Seg Neutrophils # Man Lymphocytes # (Manual) Monocytes # (Manual) Eosinophils # (Manual) Basophils # (Manual) PT INR APTT D-Dimer Heparin Anti-Xa Level 0.18 L ABG pH ABG pO2 ABG HCO3 ABG O2 Saturation ABG Base Excess ABG Hemoglobin Oxyhemoglobin Sodium 148 H Potassium 2.7 L* Chloride Carbon Dioxide BUN 59 H Creatinine 1.4 H Glucose 143 H POC Glucose Hemoglobin A1c Lactic Acid Calcium 8.3 L Phosphorus Magnesium Ferritin AST ALT Alkaline Phosphatase Lactate Dehydrogenase Troponin T C-Reactive Protein Total Protein Albumin LDL Cholesterol Direct Urine Creatinine Urine Total Protein Salicylates Acetaminophen Crossmatch 11/09/21 11/09/21 11/09/21 05:52 08:45 11:00 WBC RBC Hgb Hct MCH RDW Plt Count Lymph % (Auto) [place] % (Auto) Lymph # (Auto) [place] # (Auto) Seg Neutrophils % Seg Neuts % (Manual) Lymphocytes % (Manual) Monocytes % (Manual) Basophils % (Manual) Nucleated RBC % Seg Neutrophils # Seg Neutrophils # Man Lymphocytes # (Manual) Monocytes # (Manual) Eosinophils # (Manual) Basophils # (Manual) PT INR APTT D-Dimer Heparin Anti-Xa Level ABG pH ABG pO2 73.2 L ABG HCO3 33.8 H ABG O2 Saturation ABG Base Excess 8.7 H ABG Hemoglobin 8.5 L Oxyhemoglobin 94.1 L Sodium Potassium Chloride Carbon Dioxide BUN Creatinine Glucose POC Glucose 166 H 136 H Hemoglobin A1c Lactic Acid Calcium Phosphorus Magnesium Ferritin AST ALT Alkaline Phosphatase Lactate Dehydrogenase Troponin T C-Reactive Protein Total Protein Albumin LDL Cholesterol Direct Urine Creatinine Urine Total Protein Salicylates Acetaminophen Crossmatch 11/09/21 11/09/21 11/09/21 15:48 16:10 20:31 WBC RBC Hgb Hct MCH RDW Plt Count Lymph % (Auto) [place] % (Auto) Lymph # (Auto) [place] # (Auto) Seg Neutrophils % Seg Neuts % (Manual) Lymphocytes % (Manual) Monocytes % (Manual) Basophils % (Manual) Nucleated RBC % Seg Neutrophils # Seg Neutrophils # Man Lymphocytes # (Manual) Monocytes # (Manual) Eosinophils # (Manual) Basophils # (Manual) PT INR APTT D-Dimer Heparin Anti-Xa Level ABG pH ABG pO2 ABG HCO3 ABG O2 Saturation ABG Base Excess ABG Hemoglobin Oxyhemoglobin Sodium Potassium 2.8 L* Chloride Carbon Dioxide 31 H BUN 53 H Creatinine 1.3 H Glucose 208 H POC Glucose 203 H 166 H Hemoglobin A1c Lactic Acid Calcium 7.9 L Phosphorus Magnesium Ferritin AST ALT Alkaline Phosphatase Lactate Dehydrogenase Troponin T C-Reactive Protein Total Protein Albumin LDL Cholesterol Direct Urine Creatinine Urine Total Protein Salicylates Acetaminophen Crossmatch 11/09/21 11/09/21 11/09/21 21:30 23:16 Unknown WBC RBC Hgb Hct MCH RDW Plt Count Lymph % (Auto) [place] % (Auto) Lymph # (Auto) [place] # (Auto) Seg Neutrophils % Seg Neuts % (Manual) Lymphocytes % (Manual) Monocytes % (Manual) Basophils % (Manual) Nucleated RBC % Seg Neutrophils # Seg Neutrophils # Man Lymphocytes # (Manual) Monocytes # (Manual) Eosinophils # (Manual) Basophils # (Manual) PT INR APTT D-Dimer Heparin Anti-Xa Level 0.24 L ABG pH ABG pO2 ABG HCO3 ABG O2 Saturation ABG Base Excess ABG Hemoglobin Oxyhemoglobin Sodium Potassium Chloride Carbon Dioxide BUN 52 H Creatinine 1.4 H Glucose 185 H POC Glucose 172 H Hemoglobin A1c Lactic Acid Calcium 7.8 L Phosphorus Magnesium Ferritin AST ALT Alkaline Phosphatase Lactate Dehydrogenase Troponin T C-Reactive Protein Total Protein Albumin LDL Cholesterol Direct Urine Creatinine Urine Total Protein Salicylates Acetaminophen Crossmatch 11/10/21 11/10/21 11/10/21 02:00 04:17 04:17 WBC 24.5 H RBC 2.75 L Hgb 7.5 L Hct 22.9 L MCH 27 L RDW Plt Count Lymph % (Auto) [place] % (Auto) Lymph # (Auto) [place] # (Auto) Seg Neutrophils % Seg Neuts % (Manual) Lymphocytes % (Manual) Monocytes % (Manual) Basophils % (Manual) Nucleated RBC % Seg Neutrophils # Seg Neutrophils # Man Lymphocytes # (Manual) Monocytes # (Manual) Eosinophils # (Manual) Basophils # (Manual) PT INR APTT D-Dimer Heparin Anti-Xa Level 0.26 L ABG pH ABG pO2 ABG HCO3 ABG O2 Saturation ABG Base Excess ABG Hemoglobin Oxyhemoglobin Sodium Potassium 2.9 L* Chloride Carbon Dioxide 35 H BUN 48 H Creatinine Glucose 212 H POC Glucose Hemoglobin A1c Lactic Acid Calcium 8.1 L Phosphorus Magnesium Ferritin AST ALT Alkaline Phosphatase Lactate Dehydrogenase Troponin T C-Reactive Protein Total Protein Albumin LDL Cholesterol Direct Urine Creatinine Urine Total Protein Salicylates Acetaminophen Crossmatch 11/10/21 11/10/21 11/10/21 05:01 08:39 11:03 WBC RBC Hgb Hct MCH RDW Plt Count Lymph % (Auto) [place] % (Auto) Lymph # (Auto) [place] # (Auto) Seg Neutrophils % Seg Neuts % (Manual) Lymphocytes % (Manual) Monocytes % (Manual) Basophils % (Manual) Nucleated RBC % Seg Neutrophils # Seg Neutrophils # Man Lymphocytes # (Manual) Monocytes # (Manual) Eosinophils # (Manual) Basophils # (Manual) PT INR APTT D-Dimer Heparin Anti-Xa Level 0.12 L ABG pH ABG pO2 ABG HCO3 ABG O2 Saturation ABG Base Excess ABG Hemoglobin Oxyhemoglobin Sodium Potassium Chloride Carbon Dioxide BUN Creatinine Glucose POC Glucose 203 H 152 H Hemoglobin A1c Lactic Acid Calcium Phosphorus Magnesium Ferritin AST ALT Alkaline Phosphatase Lactate Dehydrogenase Troponin T C-Reactive Protein Total Protein Albumin LDL Cholesterol Direct Urine Creatinine Urine Total Protein Salicylates Acetaminophen Crossmatch 11/10/21 11/10/21 11/10/21 12:45 15:43 21:05 WBC RBC Hgb Hct MCH RDW Plt Count Lymph % (Auto) [place] % (Auto) Lymph # (Auto) [place] # (Auto) Seg Neutrophils % Seg Neuts % (Manual) Lymphocytes % (Manual) Monocytes % (Manual) Basophils % (Manual) Nucleated RBC % Seg Neutrophils # Seg Neutrophils # Man Lymphocytes # (Manual) Monocytes # (Manual) Eosinophils # (Manual) Basophils # (Manual) PT INR APTT D-Dimer Heparin Anti-Xa Level ABG pH ABG pO2 ABG HCO3 ABG O2 Saturation ABG Base Excess ABG Hemoglobin Oxyhemoglobin Sodium 146 H Potassium 3.3 L Chloride Carbon Dioxide 31 H BUN 43 H Creatinine Glucose 155 H POC Glucose 139 H 139 H Hemoglobin A1c Lactic Acid Calcium 8.3 L Phosphorus Magnesium Ferritin AST ALT Alkaline Phosphatase Lactate Dehydrogenase Troponin T C-Reactive Protein Total Protein Albumin LDL Cholesterol Direct Urine Creatinine Urine Total Protein Salicylates Acetaminophen Crossmatch 11/10/21 11/11/21 11/11/21 23:25 03:49 03:49 WBC 22.1 H RBC 2.69 L Hgb 7.2 L Hct 22.7 L MCH 27 L RDW Plt Count Lymph % (Auto) [place] % (Auto) Lymph # (Auto) [place] # (Auto) Seg Neutrophils % Seg Neuts % (Manual) Lymphocytes % (Manual) Monocytes % (Manual) Basophils % (Manual) Nucleated RBC % Seg Neutrophils # Seg Neutrophils # Man Lymphocytes # (Manual) Monocytes # (Manual) Eosinophils # (Manual) Basophils # (Manual) PT INR APTT D-Dimer Heparin Anti-Xa Level ABG pH ABG pO2 ABG HCO3 ABG O2 Saturation ABG Base Excess ABG Hemoglobin Oxyhemoglobin Sodium Potassium Chloride Carbon Dioxide 32 H BUN 44 H Creatinine 1.3 H Glucose 173 H POC Glucose 146 H Hemoglobin A1c Lactic Acid Calcium Phosphorus Magnesium Ferritin AST ALT Alkaline Phosphatase Lactate Dehydrogenase Troponin T C-Reactive Protein Total Protein Albumin LDL Cholesterol Direct Urine Creatinine Urine Total Protein Salicylates Acetaminophen Crossmatch 11/11/21 11/11/21 11/11/21 05:03 10:50 11:32 WBC RBC Hgb Hct MCH RDW Plt Count Lymph % (Auto) [place] % (Auto) Lymph # (Auto) [place] # (Auto) Seg Neutrophils % Seg Neuts % (Manual) Lymphocytes % (Manual) Monocytes % (Manual) Basophils % (Manual) Nucleated RBC % Seg Neutrophils # Seg Neutrophils # Man Lymphocytes # (Manual) Monocytes # (Manual) Eosinophils # (Manual) Basophils # (Manual) PT INR APTT D-Dimer Heparin Anti-Xa Level ABG pH ABG pO2 ABG HCO3 ABG O2 Saturation ABG Base Excess ABG Hemoglobin Oxyhemoglobin Sodium Potassium Chloride Carbon Dioxide BUN Creatinine Glucose POC Glucose 152 H 129 H 133 H Hemoglobin A1c Lactic Acid Calcium Phosphorus Magnesium Ferritin AST ALT Alkaline Phosphatase Lactate Dehydrogenase Troponin T C-Reactive Protein Total Protein Albumin LDL Cholesterol Direct Urine Creatinine Urine Total Protein Salicylates Acetaminophen Crossmatch 11/11/21 11/11/21 11/11/21 13:53 16:31 17:13 WBC RBC Hgb Hct MCH RDW Plt Count Lymph % (Auto) [place] % (Auto) Lymph # (Auto) [place] # (Auto) Seg Neutrophils % Seg Neuts % (Manual) Lymphocytes % (Manual) Monocytes % (Manual) Basophils % (Manual) Nucleated RBC % Seg Neutrophils # Seg Neutrophils # Man Lymphocytes # (Manual) Monocytes # (Manual) Eosinophils # (Manual) Basophils # (Manual) PT INR APTT D-Dimer Heparin Anti-Xa Level ABG pH 7.475 H ABG pO2 64.1 L ABG HCO3 32.4 H ABG O2 Saturation ABG Base Excess 8.0 H ABG Hemoglobin 7.6 L Oxyhemoglobin 94.0 L Sodium Potassium Chloride Carbon Dioxide BUN Creatinine Glucose POC Glucose 116 H 125 H Hemoglobin A1c Lactic Acid Calcium Phosphorus Magnesium Ferritin AST ALT Alkaline Phosphatase Lactate Dehydrogenase Troponin T C-Reactive Protein Total Protein Albumin LDL Cholesterol Direct Urine Creatinine Urine Total Protein Salicylates Acetaminophen Crossmatch 11/11/21 11/11/21 11/12/21 20:40 23:35 03:30 WBC 17.7 H RBC 2.37 L Hgb 6.3 L Hct 20.0 L MCH 27 L RDW 15.5 H Plt Count Lymph % (Auto) [place] % (Auto) Lymph # (Auto) [place] # (Auto) Seg Neutrophils % Seg Neuts % (Manual) Lymphocytes % (Manual) Monocytes % (Manual) Basophils % (Manual) Nucleated RBC % Seg Neutrophils # Seg Neutrophils # Man Lymphocytes # (Manual) Monocytes # (Manual) Eosinophils # (Manual) Basophils # (Manual) PT INR APTT D-Dimer Heparin Anti-Xa Level 0.26 L ABG pH ABG pO2 ABG HCO3 ABG O2 Saturation ABG Base Excess ABG Hemoglobin Oxyhemoglobin Sodium Potassium Chloride Carbon Dioxide BUN Creatinine Glucose POC Glucose 118 H Hemoglobin A1c Lactic Acid Calcium Phosphorus Magnesium Ferritin AST ALT Alkaline Phosphatase Lactate Dehydrogenase Troponin T C-Reactive Protein Total Protein Albumin LDL Cholesterol Direct Urine Creatinine Urine Total Protein Salicylates Acetaminophen Crossmatch 11/12/21 11/12/21 11/12/21 03:30 04:15 11:53 WBC RBC Hgb Hct MCH RDW Plt Count Lymph % (Auto) [place] % (Auto) Lymph # (Auto) [place] # (Auto) Seg Neutrophils % Seg Neuts % (Manual) Lymphocytes % (Manual) Monocytes % (Manual) Basophils % (Manual) Nucleated RBC % Seg Neutrophils # Seg Neutrophils # Man Lymphocytes # (Manual) Monocytes # (Manual) Eosinophils # (Manual) Basophils # (Manual) PT INR APTT D-Dimer Heparin Anti-Xa Level ABG pH ABG pO2 ABG HCO3 ABG O2 Saturation ABG Base Excess ABG Hemoglobin Oxyhemoglobin Sodium Potassium Chloride Carbon Dioxide 33 H BUN 38 H Creatinine 1.3 H Glucose 102 H POC Glucose 62 L Hemoglobin A1c Lactic Acid Calcium 8.2 L Phosphorus Magnesium Ferritin AST ALT Alkaline Phosphatase Lactate Dehydrogenase Troponin T C-Reactive Protein Total Protein Albumin LDL Cholesterol Direct Urine Creatinine Urine Total Protein Salicylates Acetaminophen Crossmatch See Detail 11/12/21 11/12/21 11/12/21 17:20 19:14 23:11 WBC RBC Hgb 6.2 L Hct 19.5 L* MCH RDW Plt Count Lymph % (Auto) [place] % (Auto) Lymph # (Auto) [place] # (Auto) Seg Neutrophils % Seg Neuts % (Manual) Lymphocytes % (Manual) Monocytes % (Manual) Basophils % (Manual) Nucleated RBC % Seg Neutrophils # Seg Neutrophils # Man Lymphocytes # (Manual) Monocytes # (Manual) Eosinophils # (Manual) Basophils # (Manual) PT INR APTT D-Dimer Heparin Anti-Xa Level ABG pH ABG pO2 ABG HCO3 ABG O2 Saturation ABG Base Excess ABG Hemoglobin Oxyhemoglobin Sodium Potassium Chloride Carbon Dioxide BUN Creatinine Glucose POC Glucose 115 H 131 H Hemoglobin A1c Lactic Acid Calcium Phosphorus Magnesium Ferritin AST ALT Alkaline Phosphatase Lactate Dehydrogenase Troponin T C-Reactive Protein Total Protein Albumin LDL Cholesterol Direct Urine Creatinine Urine Total Protein Salicylates Acetaminophen Crossmatch 11/13/21 11/13/21 11/13/21 00:13 04:17 04:17 WBC 23.8 H RBC 2.84 L Hgb 7.4 L 7.8 L Hct 23.3 L 24.9 L MCH 27 L RDW 15.4 H Plt Count Lymph % (Auto) [place] % (Auto) Lymph # (Auto) [place] # (Auto) Seg Neutrophils % Seg Neuts % (Manual) Lymphocytes % (Manual) Monocytes % (Manual) Basophils % (Manual) Nucleated RBC % Seg Neutrophils # Seg Neutrophils # Man Lymphocytes # (Manual) Monocytes # (Manual) Eosinophils # (Manual) Basophils # (Manual) PT INR APTT D-Dimer Heparin Anti-Xa Level ABG pH ABG pO2 ABG HCO3 ABG O2 Saturation ABG Base Excess ABG Hemoglobin Oxyhemoglobin Sodium 146 H Potassium Chloride Carbon Dioxide BUN 44 H Creatinine 1.6 H Glucose 144 H POC Glucose Hemoglobin A1c Lactic Acid Calcium 7.9 L Phosphorus 5.10 H D Magnesium Ferritin AST ALT Alkaline Phosphatase Lactate Dehydrogenase Troponin T C-Reactive Protein Total Protein Albumin LDL Cholesterol Direct Urine Creatinine Urine Total Protein Salicylates Acetaminophen Crossmatch 11/13/21 11/13/21 11/13/21 05:52 10:54 15:57 WBC RBC Hgb Hct MCH RDW Plt Count Lymph % (Auto) [place] % (Auto) Lymph # (Auto) [place] # (Auto) Seg Neutrophils % Seg Neuts % (Manual) Lymphocytes % (Manual) Monocytes % (Manual) Basophils % (Manual) Nucleated RBC % Seg Neutrophils # Seg Neutrophils # Man Lymphocytes # (Manual) Monocytes # (Manual) Eosinophils # (Manual) Basophils # (Manual) PT INR APTT D-Dimer Heparin Anti-Xa Level ABG pH ABG pO2 ABG HCO3 ABG O2 Saturation ABG Base Excess ABG Hemoglobin Oxyhemoglobin Sodium Potassium Chloride Carbon Dioxide BUN Creatinine Glucose POC Glucose 123 H 147 H 207 H Hemoglobin A1c Lactic Acid Calcium Phosphorus Magnesium Ferritin AST ALT Alkaline Phosphatase Lactate Dehydrogenase Troponin T C-Reactive Protein Total Protein Albumin LDL Cholesterol Direct Urine Creatinine Urine Total Protein Salicylates Acetaminophen Crossmatch 11/13/21 11/13/21 11/14/21 16:01 23:18 04:55 WBC 23.9 H RBC 2.86 L Hgb 6.5 L 8.3 L Hct 20.3 L 24.5 L MCH RDW Plt Count Lymph % (Auto) [place] % (Auto) Lymph # (Auto) [place] # (Auto) Seg Neutrophils % Seg Neuts % (Manual) Lymphocytes % (Manual) Monocytes % (Manual) Basophils % (Manual) Nucleated RBC % Seg Neutrophils # Seg Neutrophils # Man Lymphocytes # (Manual) Monocytes # (Manual) Eosinophils # (Manual) Basophils # (Manual) PT INR APTT D-Dimer Heparin Anti-Xa Level ABG pH ABG pO2 ABG HCO3 ABG O2 Saturation ABG Base Excess ABG Hemoglobin Oxyhemoglobin Sodium Potassium Chloride Carbon Dioxide BUN Creatinine Glucose POC Glucose 209 H Hemoglobin A1c Lactic Acid Calcium Phosphorus Magnesium Ferritin AST ALT Alkaline Phosphatase Lactate Dehydrogenase Troponin T C-Reactive Protein Total Protein Albumin LDL Cholesterol Direct Urine Creatinine Urine Total Protein Salicylates Acetaminophen Crossmatch 11/14/21 11/14/21 11/14/21 04:55 05:09 11:35 WBC RBC Hgb Hct MCH RDW Plt Count Lymph % (Auto) [place] % (Auto) Lymph # (Auto) [place] # (Auto) Seg Neutrophils % Seg Neuts % (Manual) Lymphocytes % (Manual) Monocytes % (Manual) Basophils % (Manual) Nucleated RBC % Seg Neutrophils # Seg Neutrophils # Man Lymphocytes # (Manual) Monocytes # (Manual) Eosinophils # (Manual) Basophils # (Manual) PT INR APTT D-Dimer Heparin Anti-Xa Level ABG pH ABG pO2 ABG HCO3 ABG O2 Saturation ABG Base Excess ABG Hemoglobin Oxyhemoglobin Sodium 148 H Potassium Chloride 109.0 H Carbon Dioxide BUN 42 H Creatinine 1.6 H Glucose 184 H POC Glucose 169 H 154 H Hemoglobin A1c Lactic Acid Calcium 8.0 L Phosphorus Magnesium Ferritin AST ALT Alkaline Phosphatase Lactate Dehydrogenase Troponin T C-Reactive Protein Total Protein Albumin LDL Cholesterol Direct Urine Creatinine Urine Total Protein Salicylates Acetaminophen Crossmatch 11/14/21 11/14/21 11/15/21 16:57 23:11 04:36 WBC RBC Hgb Hct MCH RDW Plt Count Lymph % (Auto) [place] % (Auto) Lymph # (Auto) [place] # (Auto) Seg Neutrophils % Seg Neuts % (Manual) Lymphocytes % (Manual) Monocytes % (Manual) Basophils % (Manual) Nucleated RBC % Seg Neutrophils # Seg Neutrophils # Man Lymphocytes # (Manual) Monocytes # (Manual) Eosinophils # (Manual) Basophils # (Manual) PT INR APTT D-Dimer Heparin Anti-Xa Level ABG pH ABG pO2 ABG HCO3 ABG O2 Saturation ABG Base Excess ABG Hemoglobin Oxyhemoglobin Sodium 151 H Potassium Chloride 111.2 H Carbon Dioxide BUN 36 H Creatinine 1.3 H Glucose 136 H POC Glucose 124 H 118 H Hemoglobin A1c Lactic Acid Calcium 8.1 L Phosphorus Magnesium Ferritin AST ALT Alkaline Phosphatase Lactate Dehydrogenase Troponin T C-Reactive Protein Total Protein Albumin LDL Cholesterol Direct Urine Creatinine Urine Total Protein Salicylates Acetaminophen Crossmatch 11/15/21 11/15/21 11/16/21 11:18 21:49 00:15 WBC RBC Hgb Hct MCH RDW Plt Count Lymph % (Auto) [place] % (Auto) Lymph # (Auto) [place] # (Auto) Seg Neutrophils % Seg Neuts % (Manual) Lymphocytes % (Manual) Monocytes % (Manual) Basophils % (Manual) Nucleated RBC % Seg Neutrophils # Seg Neutrophils # Man Lymphocytes # (Manual) Monocytes # (Manual) Eosinophils # (Manual) Basophils # (Manual) PT INR APTT D-Dimer Heparin Anti-Xa Level ABG pH ABG pO2 ABG HCO3 ABG O2 Saturation ABG Base Excess ABG Hemoglobin Oxyhemoglobin Sodium Potassium Chloride Carbon Dioxide BUN Creatinine Glucose POC Glucose 154 H 154 H 146 H Hemoglobin A1c Lactic Acid Calcium Phosphorus Magnesium Ferritin AST ALT Alkaline Phosphatase Lactate Dehydrogenase Troponin T C-Reactive Protein Total Protein Albumin LDL Cholesterol Direct Urine Creatinine Urine Total Protein Salicylates Acetaminophen Crossmatch 11/16/21 11/16/21 11/16/21 05:11 05:11 05:37 WBC 18.2 H RBC 2.92 L Hgb 8.3 L Hct 26.1 L MCH RDW 15.8 H Plt Count Lymph % (Auto) 6.3 L [place] % (Auto) 10.2 H Lymph # (Auto) [place] # (Auto) 1.9 H Seg Neutrophils % 81.7 H Seg Neuts % (Manual) Lymphocytes % (Manual) Monocytes % (Manual) Basophils % (Manual) Nucleated RBC % Seg Neutrophils # 14.9 H Seg Neutrophils # Man Lymphocytes # (Manual) Monocytes # (Manual) Eosinophils # (Manual) Basophils # (Manual) PT INR APTT D-Dimer Heparin Anti-Xa Level ABG pH ABG pO2 ABG HCO3 ABG O2 Saturation ABG Base Excess ABG Hemoglobin Oxyhemoglobin Sodium 146 H Potassium Chloride 108.0 H Carbon Dioxide BUN 25 H Creatinine Glucose 123 H POC Glucose 109 H Hemoglobin A1c Lactic Acid Calcium 7.8 L Phosphorus Magnesium Ferritin AST ALT Alkaline Phosphatase Lactate Dehydrogenase Troponin T C-Reactive Protein Total Protein Albumin LDL Cholesterol Direct Urine Creatinine Urine Total Protein Salicylates Acetaminophen Crossmatch 11/16/21 11/16/21 11/17/21 11:22 23:55 04:33 WBC RBC Hgb Hct MCH RDW Plt Count Lymph % (Auto) [place] % (Auto) Lymph # (Auto) [place] # (Auto) Seg Neutrophils % Seg Neuts % (Manual) Lymphocytes % (Manual) Monocytes % (Manual) Basophils % (Manual) Nucleated RBC % Seg Neutrophils # Seg Neutrophils # Man Lymphocytes # (Manual) Monocytes # (Manual) Eosinophils # (Manual) Basophils # (Manual) PT INR APTT D-Dimer Heparin Anti-Xa Level ABG pH ABG pO2 ABG HCO3 ABG O2 Saturation ABG Base Excess ABG Hemoglobin Oxyhemoglobin Sodium Potassium Chloride Carbon Dioxide BUN 20 H Creatinine Glucose POC Glucose 136 H 113 H Hemoglobin A1c Lactic Acid Calcium 7.5 L Phosphorus Magnesium Ferritin AST ALT Alkaline Phosphatase Lactate Dehydrogenase Troponin T C-Reactive Protein Total Protein Albumin LDL Cholesterol Direct Urine Creatinine Urine Total Protein Salicylates Acetaminophen Crossmatch 11/17/21 11/18/21 11/18/21 23:22 04:53 04:53 WBC 13.0 H RBC 2.99 L Hgb 8.5 L Hct 26.4 L MCH RDW Plt Count Lymph % (Auto) 9.5 L [place] % (Auto) 9.8 H Lymph # (Auto) [place] # (Auto) 1.3 H Seg Neutrophils % 78.3 H Seg Neuts % (Manual) Lymphocytes % (Manual) Monocytes % (Manual) Basophils % (Manual) Nucleated RBC % Seg Neutrophils # 10.2 H Seg Neutrophils # Man Lymphocytes # (Manual) Monocytes # (Manual) Eosinophils # (Manual) Basophils # (Manual) PT INR APTT D-Dimer Heparin Anti-Xa Level ABG pH ABG pO2 ABG HCO3 ABG O2 Saturation ABG Base Excess ABG Hemoglobin Oxyhemoglobin Sodium Potassium Chloride Carbon Dioxide BUN 18 H Creatinine Glucose 106 H POC Glucose 112 H Hemoglobin A1c Lactic Acid Calcium 8.1 L Phosphorus Magnesium Ferritin AST ALT Alkaline Phosphatase Lactate Dehydrogenase Troponin T C-Reactive Protein Total Protein Albumin LDL Cholesterol Direct Urine Creatinine Urine Total Protein Salicylates Acetaminophen Crossmatch 11/18/21 11/18/21 11/19/21 11:35 17:42 14:38 WBC RBC Hgb Hct MCH RDW Plt Count Lymph % (Auto) [place] % (Auto) Lymph # (Auto) [place] # (Auto) Seg Neutrophils % Seg Neuts % (Manual) Lymphocytes % (Manual) Monocytes % (Manual) Basophils % (Manual) Nucleated RBC % Seg Neutrophils # Seg Neutrophils # Man Lymphocytes # (Manual) Monocytes # (Manual) Eosinophils # (Manual) Basophils # (Manual) PT INR APTT D-Dimer Heparin Anti-Xa Level ABG pH ABG pO2 ABG HCO3 ABG O2 Saturation ABG Base Excess ABG Hemoglobin Oxyhemoglobin Sodium Potassium Chloride 97.5 L Carbon Dioxide 31 H BUN Creatinine Glucose 146 H POC Glucose 143 H 132 H Hemoglobin A1c Lactic Acid Calcium Phosphorus Magnesium 1.60 L Ferritin AST ALT Alkaline Phosphatase Lactate Dehydrogenase Troponin T C-Reactive Protein Total Protein Albumin LDL Cholesterol Direct Urine Creatinine Urine Total Protein Salicylates Acetaminophen Crossmatch 11/19/21 11/19/21 11/20/21 16:24 23:58 07:42 WBC RBC 3.01 L Hgb 8.6 L Hct 26.7 L MCH RDW 15.4 H Plt Count Lymph % (Auto) [place] % (Auto) Lymph # (Auto) [place] # (Auto) Seg Neutrophils % Seg Neuts % (Manual) Lymphocytes % (Manual) Monocytes % (Manual) Basophils % (Manual) Nucleated RBC % Seg Neutrophils # Seg Neutrophils # Man Lymphocytes # (Manual) Monocytes # (Manual) Eosinophils # (Manual) Basophils # (Manual) PT INR APTT D-Dimer Heparin Anti-Xa Level ABG pH ABG pO2 ABG HCO3 ABG O2 Saturation ABG Base Excess ABG Hemoglobin Oxyhemoglobin Sodium Potassium Chloride Carbon Dioxide BUN Creatinine Glucose POC Glucose 129 H 125 H Hemoglobin A1c Lactic Acid Calcium Phosphorus Magnesium Ferritin AST ALT Alkaline Phosphatase Lactate Dehydrogenase Troponin T C-Reactive Protein Total Protein Albumin LDL Cholesterol Direct Urine Creatinine Urine Total Protein Salicylates Acetaminophen Crossmatch 11/20/21 11/20/21 11/20/21 07:42 11:25 22:59 WBC RBC Hgb Hct MCH RDW Plt Count Lymph % (Auto) [place] % (Auto) Lymph # (Auto) [place] # (Auto) Seg Neutrophils % Seg Neuts % (Manual) Lymphocytes % (Manual) Monocytes % (Manual) Basophils % (Manual) Nucleated RBC % Seg Neutrophils # Seg Neutrophils # Man Lymphocytes # (Manual) Monocytes # (Manual) Eosinophils # (Manual) Basophils # (Manual) PT INR APTT D-Dimer Heparin Anti-Xa Level ABG pH ABG pO2 ABG HCO3 ABG O2 Saturation ABG Base Excess ABG Hemoglobin Oxyhemoglobin Sodium Potassium Chloride Carbon Dioxide 31 H BUN Creatinine Glucose POC Glucose 116 H 113 H Hemoglobin A1c Lactic Acid Calcium Phosphorus Magnesium Ferritin AST ALT Alkaline Phosphatase Lactate Dehydrogenase Troponin T C-Reactive Protein Total Protein Albumin LDL Cholesterol Direct Urine Creatinine Urine Total Protein Salicylates Acetaminophen Crossmatch 11/21/21 11/22/21 11/22/21 10:50 05:10 16:12 WBC RBC Hgb Hct MCH RDW Plt Count Lymph % (Auto) [place] % (Auto) Lymph # (Auto) [place] # (Auto) Seg Neutrophils % Seg Neuts % (Manual) Lymphocytes % (Manual) Monocytes % (Manual) Basophils % (Manual) Nucleated RBC % Seg Neutrophils # Seg Neutrophils # Man Lymphocytes # (Manual) Monocytes # (Manual) Eosinophils # (Manual) Basophils # (Manual) PT INR APTT D-Dimer Heparin Anti-Xa Level ABG pH ABG pO2 ABG HCO3 ABG O2 Saturation ABG Base Excess ABG Hemoglobin Oxyhemoglobin Sodium Potassium Chloride Carbon Dioxide 32 H BUN Creatinine Glucose POC Glucose 156 H 110 H Hemoglobin A1c Lactic Acid Calcium 8.1 L Phosphorus Magnesium Ferritin AST ALT Alkaline Phosphatase Lactate Dehydrogenase Troponin T C-Reactive Protein Total Protein Albumin LDL Cholesterol Direct Urine Creatinine Urine Total Protein Salicylates Acetaminophen Crossmatch 11/23/21 11/23/21 11/23/21 07:18 07:18 11:45 WBC RBC 3.23 L Hgb 9.1 L Hct 28.5 L MCH RDW 15.6 H Plt Count Lymph % (Auto) [place] % (Auto) Lymph # (Auto) [place] # (Auto) Seg Neutrophils % Seg Neuts % (Manual) Lymphocytes % (Manual) Monocytes % (Manual) Basophils % (Manual) Nucleated RBC % Seg Neutrophils # Seg Neutrophils # Man Lymphocytes # (Manual) Monocytes # (Manual) Eosinophils # (Manual) Basophils # (Manual) PT INR APTT D-Dimer Heparin Anti-Xa Level ABG pH ABG pO2 ABG HCO3 ABG O2 Saturation ABG Base Excess ABG Hemoglobin Oxyhemoglobin Sodium Potassium 3.3 L Chloride 96.8 L Carbon Dioxide 32 H BUN Creatinine Glucose POC Glucose 140 H Hemoglobin A1c Lactic Acid Calcium Phosphorus Magnesium Ferritin AST ALT Alkaline Phosphatase Lactate Dehydrogenase Troponin T C-Reactive Protein Total Protein Albumin LDL Cholesterol Direct Urine Creatinine Urine Total Protein Salicylates Acetaminophen Crossmatch 11/23/21 11/23/21 11/24/21 16:40 23:45 07:19 WBC RBC 3.12 L Hgb 9.3 L Hct 27.2 L MCH RDW 16.0 H Plt Count Lymph % (Auto) 10.3 L [place] % (Auto) 10.0 H Lymph # (Auto) 1.1 L [place] # (Auto) 1.1 H Seg Neutrophils % 75.2 H Seg Neuts % (Manual) Lymphocytes % (Manual) Monocytes % (Manual) Basophils % (Manual) Nucleated RBC % Seg Neutrophils # 7.9 H Seg Neutrophils # Man Lymphocytes # (Manual) Monocytes # (Manual) Eosinophils # (Manual) Basophils # (Manual) PT INR APTT D-Dimer Heparin Anti-Xa Level ABG pH ABG pO2 ABG HCO3 ABG O2 Saturation ABG Base Excess ABG Hemoglobin Oxyhemoglobin Sodium Potassium Chloride Carbon Dioxide BUN Creatinine Glucose POC Glucose 140 H 138 H Hemoglobin A1c Lactic Acid Calcium Phosphorus Magnesium Ferritin AST ALT Alkaline Phosphatase Lactate Dehydrogenase Troponin T C-Reactive Protein Total Protein Albumin LDL Cholesterol Direct Urine Creatinine Urine Total Protein Salicylates Acetaminophen Crossmatch 11/24/21 11/24/21 11/24/21 07:19 11:49 15:54 WBC RBC Hgb Hct MCH RDW Plt Count Lymph % (Auto) [place] % (Auto) Lymph # (Auto) [place] # (Auto) Seg Neutrophils % Seg Neuts % (Manual) Lymphocytes % (Manual) Monocytes % (Manual) Basophils % (Manual) Nucleated RBC % Seg Neutrophils # Seg Neutrophils # Man Lymphocytes # (Manual) Monocytes # (Manual) Eosinophils # (Manual) Basophils # (Manual) PT INR APTT D-Dimer Heparin Anti-Xa Level ABG pH ABG pO2 ABG HCO3 ABG O2 Saturation ABG Base Excess ABG Hemoglobin Oxyhemoglobin Sodium Potassium 3.2 L Chloride 96.7 L Carbon Dioxide BUN Creatinine Glucose 125 H POC Glucose 118 H 106 H Hemoglobin A1c Lactic Acid Calcium Phosphorus Magnesium Ferritin AST ALT Alkaline Phosphatase Lactate Dehydrogenase Troponin T C-Reactive Protein Total Protein Albumin LDL Cholesterol Direct Urine Creatinine Urine Total Protein Salicylates Acetaminophen Crossmatch 11/25/21 11/25/21 11/25/21 11:49 15:41 20:51 WBC RBC Hgb Hct MCH RDW Plt Count Lymph % (Auto) [place] % (Auto) Lymph # (Auto) [place] # (Auto) Seg Neutrophils % Seg Neuts % (Manual) Lymphocytes % (Manual) Monocytes % (Manual) Basophils % (Manual) Nucleated RBC % Seg Neutrophils # Seg Neutrophils # Man Lymphocytes # (Manual) Monocytes # (Manual) Eosinophils # (Manual) Basophils # (Manual) PT INR APTT D-Dimer Heparin Anti-Xa Level ABG pH ABG pO2 ABG HCO3 ABG O2 Saturation ABG Base Excess ABG Hemoglobin Oxyhemoglobin Sodium Potassium Chloride Carbon Dioxide BUN Creatinine Glucose POC Glucose 119 H 110 H 109 H Hemoglobin A1c Lactic Acid Calcium Phosphorus Magnesium Ferritin AST ALT Alkaline Phosphatase Lactate Dehydrogenase Troponin T C-Reactive Protein Total Protein Albumin LDL Cholesterol Direct Urine Creatinine Urine Total Protein Salicylates Acetaminophen Crossmatch 11/26/21 11/26/21 11/26/21 07:33 11:20 17:03 WBC RBC Hgb Hct MCH RDW Plt Count Lymph % (Auto) [place] % (Auto) Lymph # (Auto) [place] # (Auto) Seg Neutrophils % Seg Neuts % (Manual) Lymphocytes % (Manual) Monocytes % (Manual) Basophils % (Manual) Nucleated RBC % Seg Neutrophils # Seg Neutrophils # Man Lymphocytes # (Manual) Monocytes # (Manual) Eosinophils # (Manual) Basophils # (Manual) PT INR APTT D-Dimer Heparin Anti-Xa Level ABG pH ABG pO2 ABG HCO3 ABG O2 Saturation ABG Base Excess ABG Hemoglobin Oxyhemoglobin Sodium Potassium Chloride Carbon Dioxide BUN Creatinine Glucose POC Glucose 158 H 162 H 144 H Hemoglobin A1c Lactic Acid Calcium Phosphorus Magnesium Ferritin AST ALT Alkaline Phosphatase Lactate Dehydrogenase Troponin T C-Reactive Protein Total Protein Albumin LDL Cholesterol Direct Urine Creatinine Urine Total Protein Salicylates Acetaminophen Crossmatch 11/26/21 11/27/21 11/27/21 21:51 07:44 12:20 WBC RBC Hgb Hct MCH RDW Plt Count Lymph % (Auto) [place] % (Auto) Lymph # (Auto) [place] # (Auto) Seg Neutrophils % Seg Neuts % (Manual) Lymphocytes % (Manual) Monocytes % (Manual) Basophils % (Manual) Nucleated RBC % Seg Neutrophils # Seg Neutrophils # Man Lymphocytes # (Manual) Monocytes # (Manual) Eosinophils # (Manual) Basophils # (Manual) PT INR APTT D-Dimer Heparin Anti-Xa Level ABG pH ABG pO2 ABG HCO3 ABG O2 Saturation ABG Base Excess ABG Hemoglobin Oxyhemoglobin Sodium Potassium Chloride Carbon Dioxide BUN Creatinine Glucose POC Glucose 132 H 129 H 128 H Hemoglobin A1c Lactic Acid Calcium Phosphorus Magnesium Ferritin AST ALT Alkaline Phosphatase Lactate Dehydrogenase Troponin T C-Reactive Protein Total Protein Albumin LDL Cholesterol Direct Urine Creatinine Urine Total Protein Salicylates Acetaminophen Crossmatch 11/27/21 11/27/21 11/28/21 16:44 21:35 07:54 WBC RBC Hgb Hct MCH RDW Plt Count Lymph % (Auto) [place] % (Auto) Lymph # (Auto) [place] # (Auto) Seg Neutrophils % Seg Neuts % (Manual) Lymphocytes % (Manual) Monocytes % (Manual) Basophils % (Manual) Nucleated RBC % Seg Neutrophils # Seg Neutrophils # Man Lymphocytes # (Manual) Monocytes # (Manual) Eosinophils # (Manual) Basophils # (Manual) PT INR APTT D-Dimer Heparin Anti-Xa Level ABG pH ABG pO2 ABG HCO3 ABG O2 Saturation ABG Base Excess ABG Hemoglobin Oxyhemoglobin Sodium Potassium Chloride Carbon Dioxide BUN Creatinine Glucose POC Glucose 126 H 131 H 124 H Hemoglobin A1c Lactic Acid Calcium Phosphorus Magnesium Ferritin AST ALT Alkaline Phosphatase Lactate Dehydrogenase Troponin T C-Reactive Protein Total Protein Albumin LDL Cholesterol Direct Urine Creatinine Urine Total Protein Salicylates Acetaminophen Crossmatch 11/28/21 11/28/21 11/28/21 11:27 11:56 16:34 WBC 12.3 H RBC 3.18 L Hgb 9.2 L Hct 27.8 L MCH RDW 16.1 H Plt Count Lymph % (Auto) 10.9 L [place] % (Auto) 13.7 H Lymph # (Auto) [place] # (Auto) 1.7 H Seg Neutrophils % 72.2 H Seg Neuts % (Manual) Lymphocytes % (Manual) Monocytes % (Manual) Basophils % (Manual) Nucleated RBC % Seg Neutrophils # 8.9 H Seg Neutrophils # Man Lymphocytes # (Manual) Monocytes # (Manual) Eosinophils # (Manual) Basophils # (Manual) PT INR APTT D-Dimer Heparin Anti-Xa Level ABG pH ABG pO2 ABG HCO3 ABG O2 Saturation ABG Base Excess ABG Hemoglobin Oxyhemoglobin Sodium Potassium Chloride Carbon Dioxide BUN Creatinine Glucose POC Glucose 131 H 123 H Hemoglobin A1c Lactic Acid Calcium Phosphorus Magnesium Ferritin AST ALT Alkaline Phosphatase Lactate Dehydrogenase Troponin T C-Reactive Protein Total Protein Albumin LDL Cholesterol Direct Urine Creatinine Urine Total Protein Salicylates Acetaminophen Crossmatch 11/28/21 11/28/21 11/29/21 19:35 21:32 07:33 WBC RBC Hgb Hct MCH RDW Plt Count Lymph % (Auto) [place] % (Auto) Lymph # (Auto) [place] # (Auto) Seg Neutrophils % Seg Neuts % (Manual) Lymphocytes % (Manual) Monocytes % (Manual) Basophils % (Manual) Nucleated RBC % Seg Neutrophils # Seg Neutrophils # Man Lymphocytes # (Manual) Monocytes # (Manual) Eosinophils # (Manual) Basophils # (Manual) PT INR APTT D-Dimer Heparin Anti-Xa Level 0.12 L ABG pH ABG pO2 ABG HCO3 ABG O2 Saturation ABG Base Excess ABG Hemoglobin Oxyhemoglobin Sodium Potassium Chloride Carbon Dioxide BUN Creatinine Glucose POC Glucose 110 H 108 H Hemoglobin A1c Lactic Acid Calcium Phosphorus Magnesium Ferritin AST ALT Alkaline Phosphatase Lactate Dehydrogenase Troponin T C-Reactive Protein Total Protein Albumin LDL Cholesterol Direct Urine Creatinine Urine Total Protein Salicylates Acetaminophen Crossmatch 11/29/21 11/29/21 11/29/21 11:29 13:51 15:25 WBC 13.0 H RBC 3.41 L Hgb 9.5 L Hct 29.9 L MCH RDW 16.2 H Plt Count Lymph % (Auto) 11.1 L [place] % (Auto) 15.5 H Lymph # (Auto) [place] # (Auto) 2.0 H Seg Neutrophils % 71.8 H Seg Neuts % (Manual) Lymphocytes % (Manual) Monocytes % (Manual) Basophils % (Manual) Nucleated RBC % Seg Neutrophils # 9.3 H Seg Neutrophils # Man Lymphocytes # (Manual) Monocytes # (Manual) Eosinophils # (Manual) Basophils # (Manual) PT INR APTT D-Dimer Heparin Anti-Xa Level ABG pH ABG pO2 ABG HCO3 ABG O2 Saturation ABG Base Excess ABG Hemoglobin Oxyhemoglobin Sodium Potassium Chloride Carbon Dioxide BUN Creatinine Glucose POC Glucose 136 H 123 H Hemoglobin A1c Lactic Acid Calcium Phosphorus Magnesium Ferritin AST ALT Alkaline Phosphatase Lactate Dehydrogenase Troponin T C-Reactive Protein Total Protein Albumin LDL Cholesterol Direct Urine Creatinine Urine Total Protein Salicylates Acetaminophen Crossmatch 11/29/21 11/29/21 11/29/21 18:50 18:50 20:16 WBC RBC Hgb Hct MCH RDW Plt Count Lymph % (Auto) [place] % (Auto) Lymph # (Auto) [place] # (Auto) Seg Neutrophils % Seg Neuts % (Manual) Lymphocytes % (Manual) Monocytes % (Manual) Basophils % (Manual) Nucleated RBC % Seg Neutrophils # Seg Neutrophils # Man Lymphocytes # (Manual) Monocytes # (Manual) Eosinophils # (Manual) Basophils # (Manual) PT INR APTT D-Dimer Heparin Anti-Xa Level 0.21 L ABG pH ABG pO2 ABG HCO3 ABG O2 Saturation ABG Base Excess ABG Hemoglobin Oxyhemoglobin Sodium 126 L Potassium Chloride 86.3 L Carbon Dioxide BUN 38 H Creatinine 3.6 H Glucose 153 H POC Glucose 166 H Hemoglobin A1c Lactic Acid Calcium Phosphorus Magnesium Ferritin AST ALT Alkaline Phosphatase Lactate Dehydrogenase Troponin T C-Reactive Protein Total Protein Albumin LDL Cholesterol Direct Urine Creatinine Urine Total Protein Salicylates Acetaminophen Crossmatch 11/30/21 11/30/21 11/30/21 05:14 07:35 11:15 WBC RBC Hgb 8.7 L Hct 26.8 L MCH RDW Plt Count Lymph % (Auto) [place] % (Auto) Lymph # (Auto) [place] # (Auto) Seg Neutrophils % Seg Neuts % (Manual) Lymphocytes % (Manual) Monocytes % (Manual) Basophils % (Manual) Nucleated RBC % Seg Neutrophils # Seg Neutrophils # Man Lymphocytes # (Manual) Monocytes # (Manual) Eosinophils # (Manual) Basophils # (Manual) PT INR APTT D-Dimer Heparin Anti-Xa Level ABG pH ABG pO2 ABG HCO3 ABG O2 Saturation ABG Base Excess ABG Hemoglobin Oxyhemoglobin Sodium Potassium Chloride Carbon Dioxide BUN Creatinine Glucose POC Glucose 114 H 119 H Hemoglobin A1c Lactic Acid Calcium Phosphorus Magnesium Ferritin AST ALT Alkaline Phosphatase Lactate Dehydrogenase Troponin T C-Reactive Protein Total Protein Albumin LDL Cholesterol Direct Urine Creatinine Urine Total Protein Salicylates Acetaminophen Crossmatch 11/30/21 11/30/21 11/30/21 15:26 17:10 18:51 WBC RBC Hgb Hct MCH RDW Plt Count Lymph % (Auto) [place] % (Auto) Lymph # (Auto) [place] # (Auto) Seg Neutrophils % Seg Neuts % (Manual) Lymphocytes % (Manual) Monocytes % (Manual) Basophils % (Manual) Nucleated RBC % Seg Neutrophils # Seg Neutrophils # Man Lymphocytes # (Manual) Monocytes # (Manual) Eosinophils # (Manual) Basophils # (Manual) PT INR APTT D-Dimer Heparin Anti-Xa Level 0.10 L ABG pH ABG pO2 ABG HCO3 ABG O2 Saturation ABG Base Excess ABG Hemoglobin Oxyhemoglobin Sodium 126 L Potassium Chloride 86.5 L Carbon Dioxide BUN 42 H Creatinine 4.0 H Glucose 155 H POC Glucose 157 H Hemoglobin A1c Lactic Acid Calcium 8.0 L Phosphorus Magnesium Ferritin AST ALT Alkaline Phosphatase Lactate Dehydrogenase Troponin T C-Reactive Protein Total Protein Albumin LDL Cholesterol Direct Urine Creatinine Urine Total Protein Salicylates Acetaminophen Crossmatch 11/30/21 12/01/21 12/01/21 20:04 00:39 09:38 WBC 25.2 H RBC 3.06 L Hgb 8.5 L Hct 26.8 L MCH RDW 16.1 H Plt Count Lymph % (Auto) [place] % (Auto) Lymph # (Auto) [place] # (Auto) Seg Neutrophils % Seg Neuts % (Manual) 80.0 H Lymphocytes % (Manual) 9.0 L Monocytes % (Manual) Basophils % (Manual) Nucleated RBC % Seg Neutrophils # Seg Neutrophils # Man 20.2 H Lymphocytes # (Manual) Monocytes # (Manual) 1.3 H Eosinophils # (Manual) Basophils # (Manual) PT INR APTT D-Dimer Heparin Anti-Xa Level 0.18 L ABG pH ABG pO2 ABG HCO3 ABG O2 Saturation ABG Base Excess ABG Hemoglobin Oxyhemoglobin Sodium Potassium Chloride Carbon Dioxide BUN Creatinine Glucose POC Glucose 115 H Hemoglobin A1c Lactic Acid Calcium Phosphorus Magnesium Ferritin AST ALT Alkaline Phosphatase Lactate Dehydrogenase Troponin T C-Reactive Protein Total Protein Albumin LDL Cholesterol Direct Urine Creatinine Urine Total Protein Salicylates Acetaminophen Crossmatch 12/01/21 12/01/21 12/02/21 09:38 11:35 03:22 WBC 23.3 H RBC 2.61 L Hgb 7.5 L Hct 22.8 L MCH RDW 16.1 H Plt Count Lymph % (Auto) [place] % (Auto) Lymph # (Auto) [place] # (Auto) Seg Neutrophils % Seg Neuts % (Manual) 77.0 H Lymphocytes % (Manual) 7.0 L Monocytes % (Manual) 14.0 H Basophils % (Manual) Nucleated RBC % Seg Neutrophils # Seg Neutrophils # Man 17.9 H Lymphocytes # (Manual) Monocytes # (Manual) 3.3 H Eosinophils # (Manual) Basophils # (Manual) 0.2 H PT INR APTT D-Dimer Heparin Anti-Xa Level ABG pH ABG pO2 ABG HCO3 ABG O2 Saturation ABG Base Excess ABG Hemoglobin Oxyhemoglobin Sodium 127 L Potassium 5.1 H Chloride 87.9 L Carbon Dioxide BUN 49 H Creatinine 4.9 H Glucose 134 H POC Glucose 109 H Hemoglobin A1c Lactic Acid Calcium 7.9 L Phosphorus Magnesium Ferritin AST ALT Alkaline Phosphatase Lactate Dehydrogenase Troponin T C-Reactive Protein Total Protein Albumin LDL Cholesterol Direct Urine Creatinine Urine Total Protein Salicylates Acetaminophen Crossmatch 12/02/21 12/02/21 12/02/21 03:22 03:22 15:40 WBC RBC Hgb Hct MCH RDW Plt Count Lymph % (Auto) [place] % (Auto) Lymph # (Auto) [place] # (Auto) Seg Neutrophils % Seg Neuts % (Manual) Lymphocytes % (Manual) Monocytes % (Manual) Basophils % (Manual) Nucleated RBC % Seg Neutrophils # Seg Neutrophils # Man Lymphocytes # (Manual) Monocytes # (Manual) Eosinophils # (Manual) Basophils # (Manual) PT INR APTT D-Dimer Heparin Anti-Xa Level 0.15 L < 0.10 L ABG pH ABG pO2 ABG HCO3 ABG O2 Saturation ABG Base Excess ABG Hemoglobin Oxyhemoglobin Sodium 129 L Potassium Chloride 91.7 L Carbon Dioxide BUN 42 H Creatinine 4.4 H Glucose POC Glucose Hemoglobin A1c Lactic Acid Calcium 8.0 L Phosphorus 5.20 H Magnesium Ferritin AST ALT Alkaline Phosphatase Lactate Dehydrogenase Troponin T C-Reactive Protein Total Protein Albumin LDL Cholesterol Direct Urine Creatinine Urine Total Protein Salicylates Acetaminophen Crossmatch 12/02/21 12/02/21 12/03/21 17:45 21:03 05:24 WBC 22.3 H RBC 2.69 L Hgb 7.4 L Hct 23.5 L MCH RDW 16.5 H Plt Count Lymph % (Auto) [place] % (Auto) Lymph # (Auto) [place] # (Auto) Seg Neutrophils % Seg Neuts % (Manual) 85.5 H Lymphocytes % (Manual) 6.0 L Monocytes % (Manual) Basophils % (Manual) Nucleated RBC % Seg Neutrophils # Seg Neutrophils # Man 19.1 H Lymphocytes # (Manual) Monocytes # (Manual) 1.0 H Eosinophils # (Manual) 0.7 H Basophils # (Manual) PT INR APTT D-Dimer Heparin Anti-Xa Level ABG pH ABG pO2 ABG HCO3 ABG O2 Saturation ABG Base Excess ABG Hemoglobin Oxyhemoglobin Sodium Potassium Chloride Carbon Dioxide BUN Creatinine Glucose POC Glucose 122 H 121 H Hemoglobin A1c Lactic Acid Calcium Phosphorus Magnesium Ferritin AST ALT Alkaline Phosphatase Lactate Dehydrogenase Troponin T C-Reactive Protein Total Protein Albumin LDL Cholesterol Direct Urine Creatinine Urine Total Protein Salicylates Acetaminophen Crossmatch 12/03/21 12/03/21 12/03/21 08:00 11:19 15:11 WBC RBC Hgb Hct MCH RDW Plt Count Lymph % (Auto) [place] % (Auto) Lymph # (Auto) [place] # (Auto) Seg Neutrophils % Seg Neuts % (Manual) Lymphocytes % (Manual) Monocytes % (Manual) Basophils % (Manual) Nucleated RBC % Seg Neutrophils # Seg Neutrophils # Man Lymphocytes # (Manual) Monocytes # (Manual) Eosinophils # (Manual) Basophils # (Manual) PT INR APTT D-Dimer Heparin Anti-Xa Level ABG pH ABG pO2 ABG HCO3 ABG O2 Saturation ABG Base Excess ABG Hemoglobin Oxyhemoglobin Sodium 134 L Potassium Chloride 95.9 L Carbon Dioxide BUN 30 H Creatinine 3.5 H Glucose 110 H POC Glucose 108 H 117 H Hemoglobin A1c Lactic Acid Calcium Phosphorus Magnesium Ferritin AST ALT Alkaline Phosphatase Lactate Dehydrogenase Troponin T C-Reactive Protein Total Protein Albumin LDL Cholesterol Direct Urine Creatinine Urine Total Protein Salicylates Acetaminophen Crossmatch 12/03/21 12/04/21 12/04/21 20:32 06:15 06:15 WBC 18.5 H RBC 2.88 L Hgb 8.0 L Hct 25.6 L MCH RDW 16.4 H Plt Count Lymph % (Auto) [place] % (Auto) Lymph # (Auto) [place] # (Auto) Seg Neutrophils % Seg Neuts % (Manual) 74.0 H Lymphocytes % (Manual) 11.0 L Monocytes % (Manual) 9.0 H Basophils % (Manual) Nucleated RBC % Seg Neutrophils # Seg Neutrophils # Man 13.7 H Lymphocytes # (Manual) Monocytes # (Manual) 1.7 H Eosinophils # (Manual) Basophils # (Manual) PT INR APTT D-Dimer Heparin Anti-Xa Level ABG pH ABG pO2 ABG HCO3 ABG O2 Saturation ABG Base Excess ABG Hemoglobin Oxyhemoglobin Sodium 135 L Potassium Chloride 96.9 L Carbon Dioxide BUN 19 H Creatinine 2.8 H Glucose 102 H POC Glucose 122 H Hemoglobin A1c Lactic Acid Calcium Phosphorus Magnesium Ferritin AST ALT Alkaline Phosphatase Lactate Dehydrogenase Troponin T C-Reactive Protein Total Protein Albumin LDL Cholesterol Direct Urine Creatinine Urine Total Protein Salicylates Acetaminophen Crossmatch 12/04/21 12/04/21 12/04/21 08:14 11:17 15:58 WBC RBC Hgb Hct MCH RDW Plt Count Lymph % (Auto) [place] % (Auto) Lymph # (Auto) [place] # (Auto) Seg Neutrophils % Seg Neuts % (Manual) Lymphocytes % (Manual) Monocytes % (Manual) Basophils % (Manual) Nucleated RBC % Seg Neutrophils # Seg Neutrophils # Man Lymphocytes # (Manual) Monocytes # (Manual) Eosinophils # (Manual) Basophils # (Manual) PT INR APTT D-Dimer Heparin Anti-Xa Level ABG pH ABG pO2 ABG HCO3 ABG O2 Saturation ABG Base Excess ABG Hemoglobin Oxyhemoglobin Sodium Potassium Chloride Carbon Dioxide BUN Creatinine Glucose POC Glucose 106 H 125 H 113 H Hemoglobin A1c Lactic Acid Calcium Phosphorus Magnesium Ferritin AST ALT Alkaline Phosphatase Lactate Dehydrogenase Troponin T C-Reactive Protein Total Protein Albumin LDL Cholesterol Direct Urine Creatinine Urine Total Protein Salicylates Acetaminophen Crossmatch 12/04/21 12/05/21 12/05/21 20:25 05:05 08:15 WBC 19.4 H RBC 2.89 L Hgb 8.1 L Hct 25.6 L MCH RDW 16.3 H Plt Count Lymph % (Auto) [place] % (Auto) Lymph # (Auto) [place] # (Auto) Seg Neutrophils % Seg Neuts % (Manual) Lymphocytes % (Manual) 13.0 L Monocytes % (Manual) 13.0 H Basophils % (Manual) Nucleated RBC % Seg Neutrophils # Seg Neutrophils # Man 12.4 H Lymphocytes # (Manual) Monocytes # (Manual) 2.5 H Eosinophils # (Manual) 0.8 H Basophils # (Manual) PT INR APTT D-Dimer Heparin Anti-Xa Level ABG pH ABG pO2 ABG HCO3 ABG O2 Saturation ABG Base Excess ABG Hemoglobin Oxyhemoglobin Sodium Potassium Chloride Carbon Dioxide BUN Creatinine Glucose POC Glucose 130 H 107 H Hemoglobin A1c Lactic Acid Calcium Phosphorus Magnesium Ferritin AST ALT Alkaline Phosphatase Lactate Dehydrogenase Troponin T C-Reactive Protein Total Protein Albumin LDL Cholesterol Direct Urine Creatinine Urine Total Protein Salicylates Acetaminophen Crossmatch 12/05/21 12/05/21 12/05/21 11:18 16:42 21:14 WBC RBC Hgb Hct MCH RDW Plt Count Lymph % (Auto) [place] % (Auto) Lymph # (Auto) [place] # (Auto) Seg Neutrophils % Seg Neuts % (Manual) Lymphocytes % (Manual) Monocytes % (Manual) Basophils % (Manual) Nucleated RBC % Seg Neutrophils # Seg Neutrophils # Man Lymphocytes # (Manual) Monocytes # (Manual) Eosinophils # (Manual) Basophils # (Manual) PT INR APTT D-Dimer Heparin Anti-Xa Level ABG pH ABG pO2 ABG HCO3 ABG O2 Saturation ABG Base Excess ABG Hemoglobin Oxyhemoglobin Sodium Potassium Chloride Carbon Dioxide BUN Creatinine Glucose POC Glucose 114 H 122 H 119 H Hemoglobin A1c Lactic Acid Calcium Phosphorus Magnesium Ferritin AST ALT Alkaline Phosphatase Lactate Dehydrogenase Troponin T C-Reactive Protein Total Protein Albumin LDL Cholesterol Direct Urine Creatinine Urine Total Protein Salicylates Acetaminophen Crossmatch 12/05/21 12/06/21 12/06/21 23:51 04:36 04:36 WBC RBC Hgb 8.0 L Hct 25.7 L MCH RDW Plt Count Lymph % (Auto) [place] % (Auto) Lymph # (Auto) [place] # (Auto) Seg Neutrophils % Seg Neuts % (Manual) Lymphocytes % (Manual) Monocytes % (Manual) Basophils % (Manual) Nucleated RBC % Seg Neutrophils # Seg Neutrophils # Man Lymphocytes # (Manual) Monocytes # (Manual) Eosinophils # (Manual) Basophils # (Manual) PT INR APTT D-Dimer Heparin Anti-Xa Level 0.71 H ABG pH ABG pO2 ABG HCO3 ABG O2 Saturation ABG Base Excess ABG Hemoglobin Oxyhemoglobin Sodium 132 L Potassium Chloride 92.5 L Carbon Dioxide BUN 35 H Creatinine 4.0 H Glucose POC Glucose Hemoglobin A1c Lactic Acid Calcium Phosphorus Magnesium Ferritin AST ALT Alkaline Phosphatase Lactate Dehydrogenase Troponin T C-Reactive Protein Total Protein Albumin LDL Cholesterol Direct Urine Creatinine Urine Total Protein Salicylates Acetaminophen Crossmatch 12/06/21 12/06/21 12/06/21 07:32 11:12 15:49 WBC RBC Hgb Hct MCH RDW Plt Count Lymph % (Auto) [place] % (Auto) Lymph # (Auto) [place] # (Auto) Seg Neutrophils % Seg Neuts % (Manual) Lymphocytes % (Manual) Monocytes % (Manual) Basophils % (Manual) Nucleated RBC % Seg Neutrophils # Seg Neutrophils # Man Lymphocytes # (Manual) Monocytes # (Manual) Eosinophils # (Manual) Basophils # (Manual) PT INR APTT D-Dimer Heparin Anti-Xa Level ABG pH ABG pO2 ABG HCO3 ABG O2 Saturation ABG Base Excess ABG Hemoglobin Oxyhemoglobin Sodium Potassium Chloride Carbon Dioxide BUN Creatinine Glucose POC Glucose 106 H 112 H 111 H Hemoglobin A1c Lactic Acid Calcium Phosphorus Magnesium Ferritin AST ALT Alkaline Phosphatase Lactate Dehydrogenase Troponin T C-Reactive Protein Total Protein Albumin LDL Cholesterol Direct Urine Creatinine Urine Total Protein Salicylates Acetaminophen Crossmatch 12/06/21 12/06/21 12/07/21 17:13 21:31 06:11 WBC RBC Hgb Hct MCH RDW Plt Count Lymph % (Auto) [place] % (Auto) Lymph # (Auto) [place] # (Auto) Seg Neutrophils % Seg Neuts % (Manual) Lymphocytes % (Manual) Monocytes % (Manual) Basophils % (Manual) Nucleated RBC % Seg Neutrophils # Seg Neutrophils # Man Lymphocytes # (Manual) Monocytes # (Manual) Eosinophils # (Manual) Basophils # (Manual) PT INR APTT D-Dimer Heparin Anti-Xa Level ABG pH ABG pO2 ABG HCO3 ABG O2 Saturation ABG Base Excess ABG Hemoglobin Oxyhemoglobin Sodium 126 L Potassium Chloride 90.1 L Carbon Dioxide BUN 43 H Creatinine 4.2 H Glucose POC Glucose 113 H 112 H Hemoglobin A1c Lactic Acid Calcium Phosphorus Magnesium Ferritin AST ALT Alkaline Phosphatase Lactate Dehydrogenase Troponin T C-Reactive Protein Total Protein Albumin LDL Cholesterol Direct Urine Creatinine Urine Total Protein Salicylates Acetaminophen Crossmatch 12/07/21 12/07/21 12/08/21 12:04 21:36 04:53 WBC RBC Hgb Hct MCH RDW Plt Count Lymph % (Auto) [place] % (Auto) Lymph # (Auto) [place] # (Auto) Seg Neutrophils % Seg Neuts % (Manual) Lymphocytes % (Manual) Monocytes % (Manual) Basophils % (Manual) Nucleated RBC % Seg Neutrophils # Seg Neutrophils # Man Lymphocytes # (Manual) Monocytes # (Manual) Eosinophils # (Manual) Basophils # (Manual) PT INR APTT D-Dimer Heparin Anti-Xa Level ABG pH ABG pO2 ABG HCO3 ABG O2 Saturation ABG Base Excess ABG Hemoglobin Oxyhemoglobin Sodium 128 L Potassium Chloride 93.1 L Carbon Dioxide 21 L BUN 39 H Creatinine 3.9 H Glucose 103 H POC Glucose 119 H 112 H Hemoglobin A1c Lactic Acid Calcium Phosphorus Magnesium Ferritin AST ALT Alkaline Phosphatase Lactate Dehydrogenase Troponin T C-Reactive Protein Total Protein Albumin LDL Cholesterol Direct Urine Creatinine Urine Total Protein Salicylates Acetaminophen Crossmatch 12/08/21 12/08/21 12/08/21 04:53 08:56 11:20 WBC 24.2 H RBC 2.71 L Hgb 7.6 L Hct 24.1 L MCH RDW 16.7 H Plt Count 114 L Lymph % (Auto) [place] % (Auto) Lymph # (Auto) [place] # (Auto) Seg Neutrophils % Seg Neuts % (Manual) 76.0 H Lymphocytes % (Manual) Monocytes % (Manual) Basophils % (Manual) Nucleated RBC % 1.0 H Seg Neutrophils # Seg Neutrophils # Man 18.4 H Lymphocytes # (Manual) Monocytes # (Manual) 1.5 H Eosinophils # (Manual) 1.0 H Basophils # (Manual) PT INR APTT D-Dimer Heparin Anti-Xa Level 0.94 H ABG pH ABG pO2 ABG HCO3 ABG O2 Saturation ABG Base Excess ABG Hemoglobin Oxyhemoglobin Sodium Potassium Chloride Carbon Dioxide BUN Creatinine Glucose POC Glucose 119 H Hemoglobin A1c Lactic Acid Calcium Phosphorus Magnesium Ferritin AST ALT Alkaline Phosphatase Lactate Dehydrogenase Troponin T C-Reactive Protein Total Protein Albumin LDL Cholesterol Direct Urine Creatinine Urine Total Protein Salicylates Acetaminophen Crossmatch 12/08/21 12/08/21 12/09/21 16:55 21:18 07:05 WBC RBC Hgb Hct MCH RDW Plt Count Lymph % (Auto) [place] % (Auto) Lymph # (Auto) [place] # (Auto) Seg Neutrophils % Seg Neuts % (Manual) Lymphocytes % (Manual) Monocytes % (Manual) Basophils % (Manual) Nucleated RBC % Seg Neutrophils # Seg Neutrophils # Man Lymphocytes # (Manual) Monocytes # (Manual) Eosinophils # (Manual) Basophils # (Manual) PT INR APTT D-Dimer Heparin Anti-Xa Level ABG pH ABG pO2 ABG HCO3 ABG O2 Saturation ABG Base Excess ABG Hemoglobin Oxyhemoglobin Sodium 124 L Potassium Chloride 89.9 L Carbon Dioxide BUN 45 H Creatinine 3.5 H Glucose POC Glucose 112 H 122 H Hemoglobin A1c Lactic Acid Calcium Phosphorus Magnesium Ferritin AST ALT Alkaline Phosphatase Lactate Dehydrogenase Troponin T C-Reactive Protein Total Protein Albumin LDL Cholesterol Direct Urine Creatinine Urine Total Protein Salicylates Acetaminophen Crossmatch 12/09/21 12/09/21 12/10/21 11:02 20:11 05:22 WBC RBC Hgb Hct MCH RDW Plt Count Lymph % (Auto) [place] % (Auto) Lymph # (Auto) [place] # (Auto) Seg Neutrophils % Seg Neuts % (Manual) Lymphocytes % (Manual) Monocytes % (Manual) Basophils % (Manual) Nucleated RBC % Seg Neutrophils # Seg Neutrophils # Man Lymphocytes # (Manual) Monocytes # (Manual) Eosinophils # (Manual) Basophils # (Manual) PT INR APTT D-Dimer Heparin Anti-Xa Level ABG pH ABG pO2 ABG HCO3 ABG O2 Saturation ABG Base Excess ABG Hemoglobin Oxyhemoglobin Sodium 131 L D Potassium Chloride 97.0 L Carbon Dioxide BUN 34 H Creatinine 2.9 H Glucose POC Glucose 132 H 108 H Hemoglobin A1c Lactic Acid Calcium Phosphorus Magnesium Ferritin AST ALT Alkaline Phosphatase Lactate Dehydrogenase Troponin T C-Reactive Protein Total Protein Albumin LDL Cholesterol Direct Urine Creatinine Urine Total Protein Salicylates Acetaminophen Crossmatch 12/10/21 12/10/21 12/10/21 05:22 07:48 11:30 WBC 14.5 H RBC 2.65 L Hgb 7.7 L Hct 23.6 L MCH RDW 17.0 H Plt Count 119 L Lymph % (Auto) [place] % (Auto) Lymph # (Auto) [place] # (Auto) Seg Neutrophils % Seg Neuts % (Manual) 73.0 H Lymphocytes % (Manual) 7.0 L Monocytes % (Manual) Basophils % (Manual) 2.0 H Nucleated RBC % 1.0 H Seg Neutrophils # Seg Neutrophils # Man 10.6 H Lymphocytes # (Manual) 1.0 L Monocytes # (Manual) Eosinophils # (Manual) Basophils # (Manual) 0.3 H PT INR APTT D-Dimer Heparin Anti-Xa Level ABG pH ABG pO2 ABG HCO3 ABG O2 Saturation ABG Base Excess ABG Hemoglobin Oxyhemoglobin Sodium Potassium Chloride Carbon Dioxide BUN Creatinine Glucose POC Glucose 106 H 129 H Hemoglobin A1c Lactic Acid Calcium Phosphorus Magnesium Ferritin AST ALT Alkaline Phosphatase Lactate Dehydrogenase Troponin T C-Reactive Protein Total Protein Albumin LDL Cholesterol Direct Urine Creatinine Urine Total Protein Salicylates Acetaminophen Crossmatch 12/10/21 12/10/21 12/10/21 16:17 20:56 21:40 WBC RBC Hgb Hct MCH RDW Plt Count Lymph % (Auto) [place] % (Auto) Lymph # (Auto) [place] # (Auto) Seg Neutrophils % Seg Neuts % (Manual) Lymphocytes % (Manual) Monocytes % (Manual) Basophils % (Manual) Nucleated RBC % Seg Neutrophils # Seg Neutrophils # Man Lymphocytes # (Manual) Monocytes # (Manual) Eosinophils # (Manual) Basophils # (Manual) PT INR APTT D-Dimer Heparin Anti-Xa Level 0.87 H ABG pH ABG pO2 ABG HCO3 ABG O2 Saturation ABG Base Excess ABG Hemoglobin Oxyhemoglobin Sodium Potassium Chloride Carbon Dioxide BUN Creatinine Glucose POC Glucose 108 H 113 H Hemoglobin A1c Lactic Acid Calcium Phosphorus Magnesium Ferritin AST ALT Alkaline Phosphatase Lactate Dehydrogenase Troponin T C-Reactive Protein Total Protein Albumin LDL Cholesterol Direct Urine Creatinine Urine Total Protein Salicylates Acetaminophen Crossmatch 12/11/21 12/11/21 12/11/21 05:21 05:21 08:10 WBC RBC Hgb Hct MCH RDW Plt Count Lymph % (Auto) [place] % (Auto) Lymph # (Auto) [place] # (Auto) Seg Neutrophils % Seg Neuts % (Manual) Lymphocytes % (Manual) Monocytes % (Manual) Basophils % (Manual) Nucleated RBC % Seg Neutrophils # Seg Neutrophils # Man Lymphocytes # (Manual) Monocytes # (Manual) Eosinophils # (Manual) Basophils # (Manual) PT INR APTT D-Dimer Heparin Anti-Xa Level 0.85 H ABG pH ABG pO2 ABG HCO3 ABG O2 Saturation ABG Base Excess ABG Hemoglobin Oxyhemoglobin Sodium 129 L Potassium Chloride 94.3 L Carbon Dioxide BUN 41 H Creatinine 3.0 H Glucose 111 H POC Glucose 109 H Hemoglobin A1c Lactic Acid Calcium Phosphorus Magnesium Ferritin AST ALT Alkaline Phosphatase Lactate Dehydrogenase Troponin T C-Reactive Protein Total Protein Albumin LDL Cholesterol Direct Urine Creatinine Urine Total Protein Salicylates Acetaminophen Crossmatch 12/11/21 12/11/21 12/11/21 12:00 13:08 13:08 WBC 13.6 H RBC 2.78 L Hgb 8.1 L Hct 25.2 L MCH RDW 17.7 H Plt Count Lymph % (Auto) [place] % (Auto) Lymph # (Auto) [place] # (Auto) Seg Neutrophils % Seg Neuts % (Manual) Lymphocytes % (Manual) Monocytes % (Manual) Basophils % (Manual) Nucleated RBC % Seg Neutrophils # Seg Neutrophils # Man Lymphocytes # (Manual) Monocytes # (Manual) Eosinophils # (Manual) Basophils # (Manual) PT INR APTT 116.8 H* D-Dimer Heparin Anti-Xa Level ABG pH ABG pO2 ABG HCO3 ABG O2 Saturation ABG Base Excess ABG Hemoglobin Oxyhemoglobin Sodium Potassium Chloride Carbon Dioxide BUN Creatinine Glucose POC Glucose 170 H Hemoglobin A1c Lactic Acid Calcium Phosphorus Magnesium Ferritin AST ALT Alkaline Phosphatase Lactate Dehydrogenase Troponin T C-Reactive Protein Total Protein Albumin LDL Cholesterol Direct Urine Creatinine Urine Total Protein Salicylates Acetaminophen Crossmatch 12/11/21 12/12/21 12/12/21 13:08 05:15 14:10 WBC RBC Hgb Hct MCH RDW Plt Count Lymph % (Auto) [place] % (Auto) Lymph # (Auto) [place] # (Auto) Seg Neutrophils % Seg Neuts % (Manual) Lymphocytes % (Manual) Monocytes % (Manual) Basophils % (Manual) Nucleated RBC % Seg Neutrophils # Seg Neutrophils # Man Lymphocytes # (Manual) Monocytes # (Manual) Eosinophils # (Manual) Basophils # (Manual) PT INR APTT D-Dimer Heparin Anti-Xa Level ABG pH 7.333 L ABG pO2 57.0 L ABG HCO3 ABG O2 Saturation 88.0 L ABG Base Excess ABG Hemoglobin 7.6 L Oxyhemoglobin 85.4 L Sodium 129 L Potassium 5.1 H Chloride 95.8 L Carbon Dioxide 21 L BUN 48 H Creatinine 3.0 H 2.9 H Glucose POC Glucose Hemoglobin A1c Lactic Acid Calcium Phosphorus Magnesium Ferritin AST ALT Alkaline Phosphatase Lactate Dehydrogenase Troponin T C-Reactive Protein Total Protein Albumin LDL Cholesterol Direct Urine Creatinine Urine Total Protein Salicylates Acetaminophen Crossmatch 12/12/21 12/13/21 12/13/21 21:25 06:19 16:21 WBC 12.9 H RBC 2.54 L Hgb 7.2 L Hct 22.8 L MCH RDW 18.0 H Plt Count Lymph % (Auto) [place] % (Auto) Lymph # (Auto) [place] # (Auto) Seg Neutrophils % Seg Neuts % (Manual) Lymphocytes % (Manual) Monocytes % (Manual) Basophils % (Manual) Nucleated RBC % Seg Neutrophils # Seg Neutrophils # Man Lymphocytes # (Manual) Monocytes # (Manual) Eosinophils # (Manual) Basophils # (Manual) PT INR APTT D-Dimer Heparin Anti-Xa Level ABG pH ABG pO2 ABG HCO3 ABG O2 Saturation ABG Base Excess ABG Hemoglobin Oxyhemoglobin Sodium Potassium Chloride Carbon Dioxide BUN Creatinine Glucose POC Glucose 125 H 117 H Hemoglobin A1c Lactic Acid Calcium Phosphorus Magnesium Ferritin AST ALT Alkaline Phosphatase Lactate Dehydrogenase Troponin T C-Reactive Protein Total Protein Albumin LDL Cholesterol Direct Urine Creatinine Urine Total Protein Salicylates Acetaminophen Crossmatch 12/13/21 12/14/21 12/14/21 21:20 06:36 12:17 WBC RBC Hgb Hct MCH RDW Plt Count Lymph % (Auto) [place] % (Auto) Lymph # (Auto) [place] # (Auto) Seg Neutrophils % Seg Neuts % (Manual) Lymphocytes % (Manual) Monocytes % (Manual) Basophils % (Manual) Nucleated RBC % Seg Neutrophils # Seg Neutrophils # Man Lymphocytes # (Manual) Monocytes # (Manual) Eosinophils # (Manual) Basophils # (Manual) PT INR APTT D-Dimer Heparin Anti-Xa Level ABG pH ABG pO2 ABG HCO3 ABG O2 Saturation ABG Base Excess ABG Hemoglobin Oxyhemoglobin Sodium 132 L Potassium Chloride Carbon Dioxide BUN 43 H Creatinine 1.9 H Glucose POC Glucose 114 H 130 H Hemoglobin A1c Lactic Acid Calcium Phosphorus Magnesium Ferritin AST ALT < 5 L Alkaline Phosphatase Lactate Dehydrogenase Troponin T C-Reactive Protein Total Protein 6.0 L Albumin 3.0 L LDL Cholesterol Direct Urine Creatinine Urine Total Protein Salicylates Acetaminophen Crossmatch 12/14/21 12/14/21 12/15/21 16:25 20:49 03:59 WBC RBC 2.37 L Hgb 6.9 L Hct 21.4 L MCH RDW 18.4 H Plt Count Lymph % (Auto) [place] % (Auto) Lymph # (Auto) [place] # (Auto) Seg Neutrophils % Seg Neuts % (Manual) Lymphocytes % (Manual) Monocytes % (Manual) Basophils % (Manual) Nucleated RBC % Seg Neutrophils # Seg Neutrophils # Man Lymphocytes # (Manual) Monocytes # (Manual) Eosinophils # (Manual) Basophils # (Manual) PT INR APTT D-Dimer Heparin Anti-Xa Level ABG pH ABG pO2 ABG HCO3 ABG O2 Saturation ABG Base Excess ABG Hemoglobin Oxyhemoglobin Sodium Potassium Chloride Carbon Dioxide BUN Creatinine Glucose POC Glucose 128 H 126 H Hemoglobin A1c Lactic Acid Calcium Phosphorus Magnesium Ferritin AST ALT Alkaline Phosphatase Lactate Dehydrogenase Troponin T C-Reactive Protein Total Protein Albumin LDL Cholesterol Direct Urine Creatinine Urine Total Protein Salicylates Acetaminophen Crossmatch 12/15/21 12/15/21 12/15/21 06:06 12:08 21:05 WBC RBC Hgb Hct MCH RDW Plt Count Lymph % (Auto) [place] % (Auto) Lymph # (Auto) [place] # (Auto) Seg Neutrophils % Seg Neuts % (Manual) Lymphocytes % (Manual) Monocytes % (Manual) Basophils % (Manual) Nucleated RBC % Seg Neutrophils # Seg Neutrophils # Man Lymphocytes # (Manual) Monocytes # (Manual) Eosinophils # (Manual) Basophils # (Manual) PT INR APTT D-Dimer Heparin Anti-Xa Level ABG pH ABG pO2 ABG HCO3 ABG O2 Saturation ABG Base Excess ABG Hemoglobin Oxyhemoglobin Sodium 133 L Potassium Chloride Carbon Dioxide BUN 42 H Creatinine 1.5 H Glucose POC Glucose 146 H Hemoglobin A1c Lactic Acid Calcium Phosphorus Magnesium Ferritin AST ALT Alkaline Phosphatase Lactate Dehydrogenase Troponin T C-Reactive Protein Total Protein Albumin LDL Cholesterol Direct Urine Creatinine Urine Total Protein Salicylates Acetaminophen Crossmatch See Detail 12/16/21 12/16/21 12/16/21 07:03 08:44 11:09 WBC 11.7 H RBC 2.72 L Hgb 8.2 L Hct 25.2 L MCH RDW 19.3 H Plt Count Lymph % (Auto) [place] % (Auto) Lymph # (Auto) [place] # (Auto) Seg Neutrophils % Seg Neuts % (Manual) Lymphocytes % (Manual) Monocytes % (Manual) Basophils % (Manual) Nucleated RBC % Seg Neutrophils # Seg Neutrophils # Man Lymphocytes # (Manual) Monocytes # (Manual) Eosinophils # (Manual) Basophils # (Manual) PT INR APTT D-Dimer Heparin Anti-Xa Level ABG pH ABG pO2 ABG HCO3 ABG O2 Saturation ABG Base Excess ABG Hemoglobin Oxyhemoglobin Sodium 134 L Potassium Chloride Carbon Dioxide BUN 39 H Creatinine 1.5 H Glucose 104 H POC Glucose 134 H Hemoglobin A1c Lactic Acid Calcium Phosphorus Magnesium Ferritin AST ALT Alkaline Phosphatase Lactate Dehydrogenase Troponin T C-Reactive Protein Total Protein Albumin LDL Cholesterol Direct Urine Creatinine Urine Total Protein Salicylates Acetaminophen Crossmatch 12/16/21 12/16/21 12/16/21 15:40 17:35 21:05 WBC RBC 2.81 L Hgb 8.3 L 8.3 L Hct 26.2 L 26.4 L MCH RDW 19.7 H Plt Count Lymph % (Auto) [place] % (Auto) Lymph # (Auto) [place] # (Auto) Seg Neutrophils % Seg Neuts % (Manual) Lymphocytes % (Manual) Monocytes % (Manual) Basophils % (Manual) Nucleated RBC % Seg Neutrophils # Seg Neutrophils # Man Lymphocytes # (Manual) Monocytes # (Manual) Eosinophils # (Manual) Basophils # (Manual) PT INR APTT D-Dimer Heparin Anti-Xa Level ABG pH ABG pO2 ABG HCO3 ABG O2 Saturation ABG Base Excess ABG Hemoglobin Oxyhemoglobin Sodium Potassium Chloride Carbon Dioxide BUN Creatinine Glucose POC Glucose 108 H Hemoglobin A1c Lactic Acid Calcium Phosphorus Magnesium Ferritin AST ALT Alkaline Phosphatase Lactate Dehydrogenase Troponin T C-Reactive Protein Total Protein Albumin LDL Cholesterol Direct Urine Creatinine Urine Total Protein Salicylates Acetaminophen Crossmatch 12/16/21 12/16/21 12/16/21 21:05 21:05 21:49 WBC RBC Hgb Hct MCH RDW Plt Count Lymph % (Auto) [place] % (Auto) Lymph # (Auto) [place] # (Auto) Seg Neutrophils % Seg Neuts % (Manual) Lymphocytes % (Manual) Monocytes % (Manual) Basophils % (Manual) Nucleated RBC % Seg Neutrophils # Seg Neutrophils # Man Lymphocytes # (Manual) Monocytes # (Manual) Eosinophils # (Manual) Basophils # (Manual) PT 16.8 H INR 1.22 H APTT D-Dimer Heparin Anti-Xa Level ABG pH ABG pO2 ABG HCO3 ABG O2 Saturation ABG Base Excess ABG Hemoglobin Oxyhemoglobin Sodium Potassium Chloride Carbon Dioxide BUN Creatinine 1.5 H Glucose POC Glucose 113 H Hemoglobin A1c Lactic Acid Calcium Phosphorus Magnesium Ferritin AST ALT Alkaline Phosphatase Lactate Dehydrogenase Troponin T C-Reactive Protein Total Protein Albumin LDL Cholesterol Direct Urine Creatinine Urine Total Protein Salicylates Acetaminophen Crossmatch 12/17/21 12/17/21 12/17/21 05:59 05:59 05:59 WBC RBC 2.85 L Hgb 8.5 L Hct 26.8 L MCH RDW 19.6 H Plt Count Lymph % (Auto) [place] % (Auto) 15.4 H Lymph # (Auto) [place] # (Auto) 1.1 H Seg Neutrophils % Seg Neuts % (Manual) Lymphocytes % (Manual) Monocytes % (Manual) Basophils % (Manual) Nucleated RBC % Seg Neutrophils # Seg Neutrophils # Man Lymphocytes # (Manual) Monocytes # (Manual) Eosinophils # (Manual) Basophils # (Manual) PT INR APTT D-Dimer Heparin Anti-Xa Level ABG pH ABG pO2 ABG HCO3 ABG O2 Saturation ABG Base Excess ABG Hemoglobin Oxyhemoglobin Sodium 134 L Potassium 5.7 H Chloride Carbon Dioxide BUN 40 H Creatinine 1.5 H 1.5 H Glucose 106 H POC Glucose Hemoglobin A1c Lactic Acid Calcium Phosphorus Magnesium Ferritin AST ALT Alkaline Phosphatase Lactate Dehydrogenase Troponin T C-Reactive Protein Total Protein Albumin LDL Cholesterol Direct Urine Creatinine Urine Total Protein Salicylates Acetaminophen Crossmatch Allied health notes reviewed: nursing
[2021-12-17] MEDS: METOPROLOL TARTRATE 50 MG TAB PO SCH ×2 (12:48→22:37)
[2021-12-17] MEDS: FAMOTIDINE 10 MG TAB PO SCH ×2 (12:48→22:35)
[2021-12-17] MEDS: DOCUSATE SODIUM 100 MG CAP PO SCH ×2 (12:49→22:33)
[2021-12-17] MEDS: APIXABAN 5 MG TAB PO SCH ×2 (12:49→22:34)
[2021-12-17] MEDS: AMIODARONE 200 MG TAB PO SCH ×2 (12:49→22:34)
[2021-12-17] MEDS: SENNOSIDES/DOCUSATE SODIUM 8.6/50 MG TAB PO SCH (12:50)
[2021-12-17] MEDS: oxyCODONE /ACETAMINOPHEN 5-325MG TAB PO PRN ×2 (17:46→22:32)
--- NOTE | 2021-12-17 19:40 | Progress Note ---
Assessment and Plan Assessment and plan: Plan to discharge the patient today however patient had hyperkalemia, potassium 5.7 Nephrology evaluated, ordered stat hemodialysis, also recommended daily evaluation for daily hemodialysis as needed Discharge was held, closely monitor patient and adjust as needed --Rectal bleeding Patient is on Eliquis, will hold Eliquis closely monitor H&H, Consult GI, transfuse PRBC as needed GI Dr. Flores evaluated the patient, advised bowel regimen s/p cardiac arrest, collapse at [facility], HFrEF, shock/hypotension resolved Atrial fibrillation/atrial flutter -Cardiac arrest and collapse at [facility] with ROSC -Cardiology consulted, appreciate recommendations - S/p Cardizem gtt- d/c due to low EF; now on PO Amio -s/p vasopressor support with levophed -Echocardiogram shows left ventricular systolic function severely decreased, LVEF 25 to 30%, no pericardial effusion -proBNP 5622 -Continue Lasix 20 mg twice daily, BB, spironolactone, losartan -No significant volume overload clinically Acute hypoxic respiratory failure, right pneumothorax, Angioedema (resolved), pulmonary edema -[facility] consulted, appreciate recommendations -Intubated on 10/29 and extubated on 11/11 -Bipap q HS and prn, at high risk for KOLBY with morbid obesity -NC during day -s/p right chest tube for pneumothorax -s/p steroids for angioedema -On Lasix for pulmonary edema. Transaminitis likely shocked liver - resolved Acute kidney injury likely secondary to vasomotor nephropathy, hypernatremia -Nephrology consulted, appreciate recommendations -Krishna replaced 11/05 urinary retention -FeNa 0.05 indicating pre-renal -SIERRA and hyponatremia resolved. Creatinine 1.0 on Lasix IV Shock cardiogenicsuspected sepsis -Fever was as high as 102 with a leukocytosis Blood, urine and sputum cultures negative -COVID-19 PCR negative -S/p empiric antibiotic therapy for possible pneumonia with Rocephin and azithromycin () -S/p Levophed gtt for hypotension -Fever and leukocytosis resolved -Monitor WBC and temperature curve Acute Metabolic encephalopathy, agitation/anxiety -Etiology likely from a cardiac arrest, shock and cerebral hypoperfusion CT head no acute focal parenchymal lesion in the brain -Neurology consulted, appreciate recommendations -EEG and MRI noted, Neuro recommend to cut down on sedation as possible Mental status significantly improved, currently fairly alert and oriented. An swers appropriately. Acute DVT in the left posterior tibial vein and bilateral peroneal veins, Anemia, retroperitoneal bleed -D-dimer greater than 10,000 -CTA chest with no evidence of PE -Bilateral lower extremity ultrasound positive for DVT -Heparin gtt on hold d/t anemia, received PRBC x4 -vasuclar surgery consulted, appreciate recommendations -recommended multiphasic CT angio of the abdomen and pelvis with and without contrast if H/H drops and did not recommend IVC filter at this time as the DVTs are infrapopliteal and recommends a follow-up DVT study weekly for 2 weeks. Repeat venous duplex ultrasound on 11/21 showed progression of left peroneal DVT extending into popliteal vein. Vascular surgery completed IVC filter placement on 11/22. -Trend CBC -SCDs to BLE while in bed -Transfuse hemoglobin less than 7 -Monitor for signs of bleeding -Hemoglobin stable, 8.6 Hypertension, not able be controlled Increase losartan 200 mg daily and add hydralazine as needed. Hyperglycemia ,resolved) -Avoid hypoglycemia -Hbg A1C 6.7 -SSI and lantus q hs (titrate as needed) -Accu-Cheks q. 6 Morbid obesity; BMI 37.0 High risk for KOLBY, On nightly BiPAP Deconditioning PT/OT ;per case management Multiple social issues Brief history and daily hospital course 66 YO Female with Obesity was attending [facility] when the patient collapsed and lost consciousness. Witnesses began CPR. EMS was notified and upon arrival the patient was found to be in distress without perfusing cardiac rhythm. Patient initiated on ACLS protocol and subsequently intubated in the field and transported to ED. The patient regained spontaneous circulation during transport. She was found to have acute hypoxemic respiratory failure, septic shock suspected secondary to aspiration pneumonia, metabolic acidosis, toxic metabolic encephalopathy, shock liver, and cardiac arrest with return of perfusing cardiac rhythm after initiation of ACLS protocol. Patient initiated on sepsis protocol as well as pneumonia protocol. Patient admitted to ICU. Patient improved, extubated on 11/11 and transferred to floor on 11/19. 10/30: Intubated and sedated, on fentanyl gtt. Open eyes spontaneously but does not follow any commands. On vasopressors, titrate as tolerated for MAP above 65. Patient febrile overnight, continue empiric IV Abx, culture data and COVID PCR pending. Patient is also s/p CT placement due to spontaneous pneumothorax. 2D echo is pending and Cardiology is consulted. 10/31: Patient remains intubated and following commands. Levophed drip stopped and potassium repleted. Patient started on tube feeding. Remains in soft bilateral restraints. 11/01: RN noted ST changes on BSM and 12 lead EKG obtained which showed ST. Given Ativan 1mg for agitation as she is maxed on fentanyl drip and IV push fentanyl did not seem to help. Patient was started on CPAP this morning by RT but remained on fentanyl drip and was having periods of apnea. Plan was to retry CPAP again in the p.m. with sedation off. 11/02: Rate increased r/t hypercapnea on ABG, sedation reduced. Given kionex for hyperkalemia and was started on levophed overnight for hypotension. 11/03: Overnight patient had tachycardia and was given Cardizem and Lopressor. Lopressor was repeated in the a.m. due to tachycardia. Patient will be started on amiodarone with a bolus per cardiology. Patient started on normal saline per liter per [facility] and steroids for angioedema. Noted to have bright red blood when suctioned from oh ETT. Remains on heparin drip as H/H is stable for now. Will reevaluate. Fentanyl drip was restarted last night due to agitation. Dr. Florse updated family today 11/04: Patient was sedated on fentanyl however off sedation is able to follow commands, a.m. labs completed in the p.m. and show hyperkalemia with increased renal function studies. Nephrology, neurology consulted by [facility]. Given Kayexalate, insulin and D50 for hyperkalemia. Patient remains on amiodarone. 11/05: Patient needed to be sedated on fentanyl again to today. overnight krishna was replaced. Hyperkalemia->given kionex 60 for 5.6. Repeat K 6-> Dr. Grant informed and requested bumex, kionex, insulin, d50, calcium gluconate and sodium bicarb with repeat BMP in 2 hours which were placed. HR remains elevated. 11/06: Patient remained in atrial fibrillation/atrial flutter with heart rate in the 150s despite being on amnio drip and was given amnio bolus, Cardizem bolus and started on Cardizem drip by cardiology. Patient is on beta-blockers p.o. scheduled and to feedings changed to Nepro. Kayexalate was given in the morning by nephrology due to hyperkalemia. 11/07: Patient is only responsive to mild stimuli, precedex added in an attempt to wean off fentanyl gtt to better assess her mental status. Neurology also on consult, pending MRI and EEG. Patient remains in Aflutter this am, HR in the 80 to 90s, still on amiodarone and heparin gtt. 11/08: Fentanyl gtt is off, only on precedex gtt. Patient is still not following any commands. MRI brain and EEG completed. Neuro recommendations noted, sedatives agents decreased. FWF added for hypernatremia and low K repleted, repeat labs ordered. Placed a call and spoke with patient's daughter, Eva Brown . She was updated on patient's conditions and status. All questions and concerns were voiced at this time. 11/09: Patient is awake and alert this am, following commands and appropriate. Remains on precedex gtt, plan for possible PST today. Hypertensive overnight, meds adjusted by Cardio and PRN Hydralazine added for SBP greater than 160. CT dislodged overnight, CXR is stable with no significant change. F/U CXR in the am. Patient's daughter, Eva Brown, visited with patient. She was updated on patient's status and goal of care for today. All questions and concerns were voiced at this time. 11/10: Mentation remains intact, still on precedex gtt. This am CXR noted still with fluid overload s/p X1 dose of IV lasix, good response from IV lasix overnight. Hypernatremia improved, D5W d/dayday. Still with persistent hypokalemia, continue electrolytes replacement and frequent lab check. Daily IV lasix and aldactone added by Cardio. Patient is also with persistent low grade fevers overnight, leukocytosis with mild improvement this am. Will get a repeat sputum culture, hold off on IV abx for now. Consider ID consult if fevers and leukocy tosis persist. Patient tolerated PST X4hrs yesterday. PST again today, plan to wean to extubate if tolerated. 11/11: IAM overnight. Off precedex gtt and tolerated PST this am. Plan to wean to extubate today. Additional IV lasix given, plan to keep patient at a net negative balance for better lung compliance. F/U CXR in the am. K improved this am, repeat BMP this afternoon since diuresing. Remains with low grade fevers, leukocytosis downtrending, will continue to monitor. Speech/PT/OT ordered 11/12: S/p extubation, now stable on 3L NC. This am CXR noted with no significant changes, lasix changed to IV X4days BID. Drop in H&H this am, and Lt. flank ecchymosis noted. Heparin gtt on hold for now and orders placed for 1 unit of PRBCs and Ct Abd/Pelvis w/o con to r/o retroperitoneal bleed. Pending speech swallow eval, keep patient NPO for now. Patient is stable for IMCU status 11/13: Patient with increased WOB and tachycardia this am, patient was placed on Bipap and precedex gtt was resumed. CXR with mild improvement. CT Abd/Pelvis also reviewed large hematomas noted at the Lt. retroperitoneum and left posterior lateral abdominal wall. Heparin gtt is already on hold, patient is hemodynamically stable. Vascular Surgery consulted for possible IVC filter eval. Patient s/p 2units of PRBCs, will continue to trend H&H and transfuse if hbg is less than 7. Worsening renal function this am, IF diuretic on hold for now. Patient is also febrile with spike in wbcs most likely reactive to bleed, will panculture and hold off on IV Abx for now. Patient also failed speech bedside swallow eval yesterday, NGT in placed plan to resume enteral nutrition 11/14: Patient had bilateral lower extremity Doppler ultrasound and vascular surgery has recommended multiphasic CT angio of the abdomen and pelvis with and without contrast if H/H drops and does not recommend IVC filter at this time as the DVTs are infrapopliteal and recommends a DVT study weekly for 2 weeks. FWF 250 q4 ml per nephro. Started on as needed Xanax and p.o. amiodarone. She did not pass her ST evaluation today. Will be transferred to IMCU. 11/15: Resting comfortably on encounter. Speech cleared for pureed diet. Remains on 3l satting 98 % on bedside encounter. Does not appear to be in respiratory distress. Will continue to hold AC, No ivc filter planned at this time. qweekly doppler to monitor for migration of DVT per vascular. If demonstrated, will consider IVC filter. CBC ordered for tomorrow, will continue monitoring in light of retroperitoneal hematoma. FWF increased by nephrology to 350cc q4hr d/t hypernatremia. UOP/renal function both improved. D/w cardiology, will continue amiodorone an additional 24hrs. Plan to change dosing of metoprolol. Continue to wean off of precedex. Continue xanax scheduled for anxiety. physical therapy recs noted, fernanda / ltac will discuss with CM. Continue IMCU monitoring. 11/16: Pulmonary congestion this AM. CXR ordered. Lasix 40 mg IV x 1 order this AM. Will monitor for 24 hrs. potential downgrade to medical floor tomorrow. 11/17: Persisting pulmonary congestion, was on bipap overnight into this AM. Will order additional lasix 40 mg IV x 2. CXR ordered for AM. Possible downgrade to floor tomorrow. Anticipate d/c sunday. 11/18: Patient seen and examined, continue weaning, will continue diuresis BID, discussed with daughter. 11/19: Patient seen and examined this morning doing well no acute distress noted. Lasix was increased to twice daily to 20 mg IV. Clinically improving. Patient will be transferred to telemetry today can be switched to Lasix p.o. twice daily in a.m. She has her weekly Doppler of lower extremity tomorrow vascular is following for this. She was taken off anticoagulation secondary to r etroperitoneal bleed., The anticoagulation was started initially for atrial fibrillation and an infrapopliteal DVT. During her hospital stay she had a prolonged ventilator management and was successfully weaned off. She also received a total of 4 units of packed red blood cell. Hemoglobin has remained stable. Anticipate discharge in next 48 hours if continues to clinically stay stable. : Transferred from ICU on 11/19. Progressive improving. Currently awake and oriented. O2 weaned to 4 L. Hemodynamically stable. BP control being optimized. MiraLAX for constipation. Hemoglobin stable on the heparin infusion, being monitored closely with history of retroperitoneal bleed. 11/21: Patient remains mostly bedridden. She is awake and oriented on 2 L of O2. Repeat ultrasound showed extension of left peroneal DVT into popliteal vein. Heparin was discontinued for significant retroperitoneal bleed and off anticoagulation since. Vascular surgery plan for placement of IVC filter tomorrow. Patient is chest pains, palpitations, hemoptysis. She has some cough. Left lower extremity pain likely from DVT better today. Discussed with the patient, nursing staff and vascular surgery. 11/22: The infrapopliteal vein thrombosis has propagated to the left popliteal vein. Vascular surgery to perform IVC filter placement today. 11/23: Vascular surgery placed IVC filter yesterday. Continue metoprolol 100 mg p.o. twice daily, Aldactone 25 mg p.o. daily and losartan 25 mg p.o. daily. Patient still requiring BiPAP (IPAP18, EPAP8) with FiO2 of 30%. Continue to wean oxygen per pulmonary recommendations. Nurse reports patient is having vaginal bleeding. We will check serial CBC and pelvic ultrasound 11/24: I discussed with cardiology yesterday the need for a LifeVest. LifeVest is ordered and pending. Patient is s/p IVC filter placement. Continue metoprolol 100 mg p.o. twice daily, Aldactone 25 mg p.o. daily and losartan 25 mg p.o. daily. Patient still requiring BiPAP (IPAP18, EPAP8) with FiO2 of 30%. Continue to wean oxygen per pulmonary recommendations. No further reports of vaginal bleeding. Pelvic ultrasound negative 11/25: Awaiting for LifeVest. Patient is s/p IVC filter placement. Continue metoprolol 100 mg p.o. twice daily, Aldactone 25 mg p.o. daily and losartan 25 mg p.o. daily. Patient still requiring BiPAP (IPAP18, EPAP8) with FiO2 of 30%. Continue to wean oxygen per pulmonary recommendations. 11/26: Physical therapy recommends subacute rehab. Still awaiting LifeVest. Patient is s/p IVC filter placement. Continue metoprolol 100 mg p.o. twice daily, Aldactone 25 mg p.o. daily and losartan 25 mg p.o. daily. Patient still requiring BiPAP (IPAP18, EPAP8) with FiO2 of 30% at night. Continue to wean oxygen per pulmonary recommendations. Patient currently with 2 L O2. 11/27: Physical therapy recommends subacute rehab. Patient has a LifeVest. Patient's left lower extremity pain likely related to DVT. Continue pain control. Continue metoprolol 100 mg p.o. twice daily, Aldactone 25 mg p.o. daily and losartan 25 mg p.o. daily. Patient still requiring BiPAP (IPAP18, EPAP8) with FiO2 of 30% at night. 11/28: Physical therapy recommends subacute rehab. Patient has a LifeVest. Patient continues to complain of left lower extremity pain which makes it very difficult for ambulation. Continue Percocet for pain control. Add neurontin for possible neuropathy. Etiology is likely secondary to DVT. Continue metoprolol 100 mg p.o. twice daily, Aldactone 25 mg p.o. daily and losartan 25 mg p.o. daily. Patient still requiring BiPAP (IPAP18, EPAP8) with FiO2 of 30% at night. Repeated Doppler US of LLE and will ask vascular surgery to revisit. 11/29; worsening lower extremity DVTs, vascular following, on heparin drip 11/30; low-grade fever, leukocytosis, shortness of breath, chest x-ray possible left-sided pneumonia/possible healthcare associated pneumonia Blood cultures already sent, empiric antibiotic cefepime[renal dose confirmed with pharmacist] ID consult if needed 12/01; gram-positive bacteremia preliminary, add vancomycin 1 dose, repeat cultures, consult ID Worsening renal function, nephrology initiated hemodialysis today, patient is critically ill, very poor prognosis, with multiple comorbidities And critical issues. Com Writer recommendations noted and appreciated 12/02; Gram positive bacteremia/possible HCAP and sepsis, on cefepime and 1 dose Vanco. Nephrology initiated hemodialysis, ID consult. Patient is hypotensive, pulmonary critical recommended transfer to ICU and start vasopressors for close observation overnight. Dr. Padron discussed with patient's daughter over patient's telephone and discussed in detail patient's condition, new developments sepsis, renal failure on hemodialysis anticoagulation for DVT and severe cardiomyopathy, also discussed poor prognosis, and the plans of tr ansferring the patient to ICU for close observation. Many questions, and answered all of them. dr. Padron also discussed with granddaughter at the bedside and patient was moved to ICU, She had numerous questions answered all of them and discussed the current condition prognosis and treatment plan. She verbalized understanding 12/03: Patient was transferred to ICU yesterday evening for hypotension however she did not need to be started on any vasopressin therapy. Patient is on p.o. midodrine and all her antihypertensives have been held. She also received albumin bolus. Patient will be transferred to the floor today. Still complains of bilateral lower extremity pain. Patient is on cefepime and she is scheduled for dialysis today. 12/04: Some complaint of leg pain. Percocet given for pain control. Patient is very deconditioned, will need aggressive PT. Will work on d/c planning with cm. 12/05: Patient does not appear to be in distress this AM. tachycardic hr on encounter and overnight, was given diltiazem by benefits advisor. Cardiology initiated metoprolol and amiodorone on patient this morning. She denies any pain except for discomfort in left lower extremity. Controlled with percocet. She also states that she does not have any urine output and has been constipated. Will order bowel regimen. Discharge needs discussed with CM which include Lifevest, BIPAP for nightly use, and possible set up for dialysis. She was visiting on a visa to the from [place] however is technically a citizen of [place] which makes placement a continued challenge. 12/06: Case management reports patient will need LifeVest, walker, CPAP and arrangements for outpatient hemodialysis. However, patient is uninsured. I discussed with the daughter Eva plans for home hospice. Eva reports that she is willing to have hospice to obtain additional resources but is not wanting palliative care/comfort measures. 12/07: Awaiting LifeVest and outpatient HD arrangements. I d/w CM discharge emeli nning. Pt still with heparin drip but amiodarone changed to p.o. 200mg BID. Cont. Metoprolol 50mg BID. Hold LAYO and ARB for renal fxn. Patient for outpatient ischemic evaluation per Cardiology. Leukocytosis likely related to retroperitoneal hematoma. ID wants to monitor off abx. 12/08: Awaiting LifeVest and outpatient HD arrangements. I d/w CM discharge planning. Pt still with heparin drip. Await cardiology recommendations to transition to p.o. anticoagulation. Patient for outpatient ischemic evaluation per Cardiology. Leukocytosis likely related to retroperitoneal hematoma. Han nue to monitor off antibiotics. Continue volume management per nephrology with hemodialysis 12/09: Patient with PermCath placement today. Nephrology reports patient hypotensive during hemodialysis and started 10 mg of midodrine for hypotension. Losartan discontinued. Continue to obtain daily weights and Strict I/O's. Renally dose medications and avoid nephrotoxic agents. Patient for outpatient ischemic evaluation per Cardiology. Leukocytosis likely related to retroperitoneal hematoma. Continue to monitor off antibiotics. Awaiting LifeVest and outpatient HD arrangements. 12/10: Continue hemodialysis per nephrology recommendations. We will discontinue heparin drip and start Eliquis 5 mg p.o. twice daily for anticoagulation. Blood pressure appears to be improved. Continue midodrine. Continue to obtain daily weights and Strict I/O's. Renally dose medications and avoid nephrotoxic agents. Patient for outpatient ischemic evaluation per Cardiology. Leukocytosis likely related to retroperitoneal hematoma. Continue to monitor off antibiotics. Awaiting LifeVest and outpatient HD arrangements. 12/11: Cardiology plans for Lexiscan in a.m. Continue hemodialysis per nephrology recommendations. We will discontinue heparin drip and start Eliquis 5 mg p.o. twice daily for anticoagulation. Blood pressure appears to be improved. Continue midodrine. Continue to obtain daily weights and Strict I/O's. Renally dose medications and avoid nephrotoxic agents. 12/12: Lexiscan this morning per cardiology. Continue hemodialysis per nephrology recommendations. Continue Eliquis for anticoagulation. Continue midodrine. Continue to obtain daily weights and Strict I/O's. Renally dose medications and avoid nephrotoxic agents. 12/14; Lexiscan test yesterday was negative for ischemia, patient receiving physical therapy, hemodialysis DC planning per case management. Hospice placement, multiple social issues 3;24; received 1 unit PRBC transfusion as patient has anemia with hemoglobin of 6.9 follow H&H and transfuse additional PRBC as needed DC planning per case management 3;25; patient had episode of rectal bleeding/melena this afternoon, patient received 1 unit PRBC yesterday for hemoglobin of 6.9 which improved to 8.2 Closely monitor H&H and transfuse additional PRBC as needed, GI consulted[discussed with Dr. Austyn Saleh] Hold Eliquis, I discussed in detail with the patient and her daughter about her recent benefits and consequences of holding Eliquis in the setting of DVT and A. fib due to severe bleeding, they verbalized understanding, patient does not have new episodes of bleeding we will resume Eliquis and closely monitor 12/17; patient did not have any new episodes of rectal bleeding, hemoglobin and hematocrit is stable, initially planning to discharge the patient home, however patient had hyperkalemia, nephrology scheduled for stat hemodialysis today, they wanted to closely monitor. Possible discharge in 1 to 2 days if cleared by nephrology. History Interval history: I have seen and evaluated the patient at the bedside Patient's chart and medications reviewed No new episodes of rectal bleeding Hemoglobin is low stable However patient had severe hyperkalemia Nephrology decided to schedule dialysis today Vital signs noted Hospitalist Physical - Constitutional Vitals: Temp Pulse Resp BP Pulse Ox 98.9 F 45 L 20 135/71 94 12/17/21 14:59 12/17/21 14:59 12/17/21 14:59 12/17/21 14:59 12/17/21 14:59 General appearance: Present: no acute distress, well-nourished, obese (Morbidly obese), other (Minimally communicative) - EENT Eyes: Present: PERRL, EOM intact - Neck Neck: Present: supple, normal ROM - Respiratory Respiratory effort: normal Respiratory: bilateral: diminished, rhonchi, negative: rales, wheezing - Cardiovascular Rhythm: regular Heart Sounds: Present: S1 & S2 - Extremities Extremities: no ischemia Extremity abnormal: edema - Abdominal General gastrointestinal: soft, non-tender, normal bowel sounds - Integumentary Integumentary: Present: clear, warm - Psychiatric Psychiatric: appropriate mood/affect, cooperative - Neurologic Neurologic: moves all extremities HEART Score - HEART Score Troponin: Troponin T 1.150 ng/mL (0.00-0.029) H* D 10/29/21 22:34 Results - Labs CBC & Chem 7: 12/17/21 05:59 12/17/21 05:59 Labs: Laboratory Last Values WBC 7.1 K/mm3 (4.5-11.0) 12/17/21 05:59 RBC 2.85 M/mm3 (3.65-5.03) L 12/17/21 05:59 Hgb 8.5 gm/dl (10.1-14.3) L 12/17/21 05:59 Hct 26.8 % (30.3-42.9) L 12/17/21 05:59 MCV 94 fl (79-97) 12/17/21 05:59 MCH 30 pg (28-32) 12/17/21 05:59 MCHC 32 % (30-34) 12/17/21 05:59 RDW 19.6 % (13.2-15.2) H 12/17/21 05:59 Plt Count 233 K/mm3 (140-440) 12/17/21 05:59 Lymph % (Auto) 16.9 % (13.4-35.0) 12/17/21 05:59 Mcdonald % (Auto) 15.4 % (0.0-7.3) H 12/17/21 05:59 Eos % (Auto) 2.2 % (0.0-4.3) 12/17/21 05:59 Baso % (Auto) 1.2 % (0.0-1.8) 12/17/21 05:59 Lymph # (Auto) 1.2 K/mm3 (1.2-5.4) 12/17/21 05:59 Mcdonald # (Auto) 1.1 K/mm3 (0.0-0.8) H 12/17/21 05:59 Eos # (Auto) 0.2 K/mm3 (0.0-0.4) 12/17/21 05:59 Baso # (Auto) 0.1 K/mm3 (0.0-0.1) 12/17/21 05:59 Add Manual Diff Complete 12/10/21 05:22 Total Counted 100 12/10/21 05:22 Seg Neutrophils % 64.3 % (40.0-70.0) 12/17/21 05:59 Seg Neuts % (Manual) 73.0 % (40.0-70.0) H 12/10/21 05:22 Band Neutrophils % 12.0 % 12/10/21 05:22 Lymphocytes % (Manual) 7.0 % (13.4-35.0) L 12/10/21 05:22 Reactive Lymphs % (Man) 0 % 12/10/21 05:22 Monocytes % (Manual) 1.0 % (0.0-7.3) 12/10/21 05:22 Eosinophils % (Manual) 1.0 % (0.0-4.3) 12/10/21 05:22 Basophils % (Manual) 2.0 % (0.0-1.8) H 12/10/21 05:22 Metamyelocytes % 0 % 12/10/21 05:22 Myelocytes % 4.0 % 12/10/21 05:22 Promyelocytes % 0 % 12/10/21 05:22 Blast Cells % 0 % 12/10/21 05:22 Nucleated RBC % 1.0 % (0.0-0.9) H 12/10/21 05:22 Seg Neutrophils # 4.6 K/mm3 (1.8-7.7) 12/17/21 05:59 Seg Neutrophils # Man 10.6 K/mm3 (1.8-7.7) H 12/10/21 05:22 Band Neutrophils # 1.7 K/mm3 12/10/21 05:22 Lymphocytes # (Manual) 1.0 K/mm3 (1.2-5.4) L 12/10/21 05:22 Abs React Lymphs (Man) 0.0 K/mm3 12/10/21 05:22 Monocytes # (Manual) 0.1 K/mm3 (0.0-0.8) 12/10/21 05:22 Eosinophils # (Manual) 0.1 K/mm3 (0.0-0.4) 12/10/21 05:22 Basophils # (Manual) 0.3 K/mm3 (0.0-0.1) H 12/10/21 05:22 Metamyelocytes # 0.0 K/mm3 12/10/21 05:22 Myelocytes # 0.6 K/mm3 12/10/21 05:22 Promyelocytes # 0.0 K/mm3 12/10/21 05:22 Blast Cells # 0.0 K/mm3 12/10/21 05:22 WBC Morphology Not Reportable 12/10/21 05:22 Hypersegmented Neuts Not Reportable 12/10/21 05:22 Hyposegmented Neuts Not Reportable 12/10/21 05:22 Hypogranular Neuts Not Reportable 12/10/21 05:22 Smudge Cells Not Reportable 12/10/21 05:22 Toxic Granulation Not Reportable 12/10/21 05:22 Toxic Vacuolation Not Reportable 12/10/21 05:22 Dohle Bodies Not Reportable 12/10/21 05:22 Pelger-Huet Anomaly Not Reportable 12/10/21 05:22 Manny Rods Not Reportable 12/10/21 05:22 Platelet Estimate Consistent w auto 12/10/21 05:22 Clumped Platelets Not Reportable 12/10/21 05:22 Plt Clumps, EDTA Not Reportable 12/10/21 05:22 Large Platelets Not Reportable 12/10/21 05:22 Giant Platelets Not Reportable 12/10/21 05:22 Platelet Satelliting Not Reportable 12/10/21 05:22 Plt Morphology Comment Not Reportable 12/10/21 05:22 RBC Morphology Not Reportable 12/10/21 05:22 Dimorphic RBCs Not Reportable 12/10/21 05:22 Polychromasia Not Reportable 12/10/21 05:22 Hypochromasia 1+ 12/10/21 05:22 Poikilocytosis Not Reportable 12/10/21 05:22 Anisocytosis 1+ 12/10/21 05:22 Microcytosis Not Reportable 12/10/21 05:22 Macrocytosis Not Reportable 12/10/21 05:22 Spherocytes Not Reportable 12/10/21 05:22 Pappenheimer Bodies Not Reportable 12/10/21 05:22 Sickle Cells Not Reportable 12/10/21 05:22 Target Cells Not Reportable 12/10/21 05:22 Tear Drop Cells Not Reportable 12/10/21 05:22 Ovalocytes Not Reportable 12/10/21 05:22 Helmet Cells Not Reportable 12/10/21 05:22 Maradiaga-Desloge Bodies Not Reportable 12/10/21 05:22 Alpha Rings Not Reportable 12/10/21 05:22 Start Cells Not Reportable 12/10/21 05:22 Bite Cells Not Reportable 12/10/21 05:22 Crenated Cell Not Reportable 12/10/21 05:22 Elliptocytes Not Reportable 12/10/21 05:22 Acanthocytes (Spur) Not Reportable 12/10/21 05:22 Rouleaux Not Reportable 12/10/21 05:22 Hemoglobin C Crystals Not Reportable 12/10/21 05:22 Schistocytes Not Reportable 12/10/21 05:22 Malaria parasites Not Reportable 12/10/21 05:22 Magdy Bodies Not Reportable 12/10/21 05:22 Hem Pathologist Commnt No 12/10/21 05:22 PT 16.8 Sec. (12.2-14.9) H 12/16/21 21:05 INR 1.22 (0.87-1.13) H 12/16/21 21:05 APTT 32.2 Sec. (24.2-36.6) 12/16/21 21:05 D-Dimer > 28475 ng/mlDDU (0-234) H 10/30/21 Unknown Heparin Anti-Xa Level Cancelled 12/11/21 13:08 ABG pH 7.333 pH Units (7.350-7.450) L 12/12/21 14:10 ABG pCO2 50.1 mm Hg 12/12/21 14:10 ABG pO2 57.0 mm Hg (80.0-90.0) L 12/12/21 14:10 ABG HCO3 26.0 mmol/L (20.0-26.0) 12/12/21 14:10 ABG O2 Saturation 88.0 % (95.0-99.0) L 12/12/21 14:10 ABG O2 Content 9.1 (0.0-44) 12/12/21 14:10 ABG Base Excess 0.0 mmol/L (-2.0-3.0) 12/12/21 14:10 ABG Hemoglobin 7.6 gm/dl (12.0-16.0) L 12/12/21 14:10 ABG Carboxyhemoglobin 2.2 % (0.0-5.0) 12/12/21 14:10 ABG Methemoglobin 0.7 % (0.0-1.5) 12/12/21 14:10 Oxyhemoglobin 85.4 % (95.0-99.0) L 12/12/21 14:10 FiO2 21 % 12/12/21 14:10 Sodium 134 mmol/L (137-145) L 12/17/21 05:59 Potassium 5.7 mmol/L (3.6-5.0) H 12/17/21 05:59 Chloride 100.5 mmol/L (98-107) 12/17/21 05:59 Carbon Dioxide 24 mmol/L (22-30) 12/17/21 05:59 Anion Gap 15 mmol/L 12/17/21 05:59 BUN 40 mg/dL (7-17) H 12/17/21 05:59 Creatinine 1.5 mg/dL (0.6-1.2) H 12/17/21 05:59 Creatinine 1.5 mg/dL (0.6-1.2) H 12/17/21 05:59 Estimated GFR 42 ml/min 12/17/21 05:59 Estimated GFR 42 ml/min 12/17/21 05:59 BUN/Creatinine Ratio 27 % 12/17/21 05:59 Glucose 106 mg/dL (65-100) H 12/17/21 05:59 POC Glucose 151 mg/dL (70-105) H 12/17/21 16:14 Hemoglobin A1c 6.7 % (4-6) H 10/31/21 04:30 Lactic Acid 0.70 mmol/L (0.7-2.0) 10/31/21 15:45 Calcium 9.1 mg/dL (8.4-10.2) 12/17/21 05:59 Phosphorus 5.20 mg/dL (2.5-4.5) H 12/02/21 03:22 Magnesium 1.60 mg/dL (1.7-2.3) L 11/19/21 14:38 Ferritin 208.4 ng/mL (10.0-200.0) H 10/30/21 Unknown Total Bilirubin 0.40 mg/dL (0.1-1.2) 12/14/21 06:36 Direct Bilirubin < 0.2 mg/dL (0-0.2) 12/14/21 06:36 Indirect Bilirubin 0.2 mg/dL 12/14/21 06:36 AST 12 units/L (5-40) 12/14/21 06:36 ALT < 5 units/L (7-56) L 12/14/21 06:36 Alkaline Phosphatase 81 units/L (35-129) 12/14/21 06:36 Ammonia 31.0 umol/L (25-60) 10/29/21 15:10 Lactate Dehydrogenase 469 units/L (91-180) H 10/30/21 Unknown Troponin T 1.150 ng/mL (0.00-0.029) H* D 10/29/21 22:34 C-Reactive Protein 13.40 mg/dL (0.00-1.30) H 10/30/21 Unknown Total Protein 6.0 g/dL (6.3-8.2) L 12/14/21 06:36 Albumin 3.0 g/dL (3.9-5) L 12/14/21 06:36 Albumin/Globulin Ratio 1.0 % 12/14/21 06:36 Triglycerides 68 mg/dL (2-149) 10/29/21 19:40 Cholesterol 98 mg/dL (50-199) 10/29/21 19:40 LDL Cholesterol Direct 43 mg/dL (50-130) L 10/29/21 19:40 HDL Cholesterol 50 mg/dL (40-59) 10/29/21 19:40 Cholesterol/HDL Ratio 1.96 % 10/29/21 19:40 Procalcitonin 61.95 ng/mL (<0.15) 10/30/21 Unknown TSH 3.080 mlU/mL (0.270-4.200) 10/29/21 15:10 Urine Color Yellow (Yellow) 11/13/21 08:30 Urine Turbidity Slightly-cloudy (Clear) 11/13/21 08:30 Urine pH 6.0 (5.0-7.0) 11/13/21 08:30 Ur Specific [place] 1.010 (1.003-1.030) 11/13/21 08:30 Urine Protein <15 mg/dl mg/dL (Negative) 11/13/21 08:30 Urine Glucose (UA) Neg mg/dL (Negative) 11/13/21 08:30 Urine Ketones Tr mg/dL (Negative) 11/13/21 08:30 Urine Blood Sm (Negative) 11/13/21 08:30 Urine Nitrite Neg (Negative) 11/13/21 08:30 Urine Bilirubin Neg (Negative) 11/13/21 08:30 Urine Urobilinogen < 2.0 mg/dL (<2.0) 11/13/21 08:30 Ur Leukocyte Esterase Neg (Negative) 11/13/21 08:30 Urine WBC (Auto) < 1.0 /HPF (0.0-6.0) 11/13/21 08:30 Urine RBC (Auto) < 1.0 /HPF (0.0-6.0) 11/13/21 08:30 U Epithel Cells (Auto) < 1.0 /HPF (0-13.0) 11/13/21 08:30 Urine Mucus Few /HPF 10/29/21 18:15 Urine Eosinophils None seen (None Seen) 11/04/21 Unknown Urine Creatinine 190.9 mg/dL (0.1-20.0) H 11/04/21 Unknown Protein/Creatinin Ratio 0.90 11/04/21 Unknown Urine Sodium 10 mmol/L 11/04/21 Unknown Urine Total Protein 172 mg/dL (5-11.8) H 11/04/21 Unknown Salicylates < 0.3 mg/dL (2.8-20.0) L 10/29/21 15:10 Urine Opiates Screen Negative 10/29/21 18:15 Urine Methadone Screen Negative 10/29/21 18:15 Acetaminophen 5.0 ug/mL (10.0-30.0) L 10/29/21 15:10 Ur Barbiturates Screen Negative 10/29/21 18:15 Ur Phencyclidine Scrn Negative 10/29/21 18:15 Ur Amphetamines Screen Negative 10/29/21 18:15 U Benzodiazepines Scrn Negative 10/29/21 18:15 Urine Cocaine Screen Negative 10/29/21 18:15 U Marijuana (THC) Screen Negative 10/29/21 18:15 Drugs of Abuse Note Disclamer 10/29/21 18:15 Plasma/Serum Alcohol < 0.01 % (0-0.07) 10/29/21 15:10 Coronavirus (PCR) Negative (Negative) 10/30/21 Unknown Hepatitis A IgM Ab Non-reactive (NonReactive) 12/01/21 19:36 Hep Bs Antigen Non-reactive (Negative) 12/01/21 19:36 Hep B Core IgM Ab Non-reactive (NonReactive) 12/01/21 19:36 Hepatitis C Antibody Non-reactive (NonReactive) 12/01/21 19:36 Blood Type O POSITIVE 12/15/21 12:08 Antibody Screen Negative 12/15/21 12:08 Crossmatch See Detail 12/15/21 12:08 Krishna/IV: Voiding Method External Female Catheter Active Medications - Current Medications Current Medications: Generic Name Dose Route Start Last Admin Trade Name Freq PRN Reason Stop Dose Admin Acetaminophen 650 mg 10/29/21 17:04 11/12/21 22:53 Acetaminophen 650 Mg Rect Supp ID 650 mg Q6H PRN Administration Pain MILD(1-3)/Fever >100.5/NIEVES Acetaminophen 650 mg 11/19/21 16:35 12/12/21 15:55 Acetaminophen 325 Mg Tab PO 650 mg Q6HR PRN Administration PAIN Albumin Human 50 gm 12/02/21 11:00 12/15/21 13:00 Albumin Human 25% (25 Gm/100 Ml) Inj IV 50 gm ZACH PRN Administration Hypotension Alprazolam 0.25 mg 11/14/21 14:29 12/15/21 11:02 Alprazolam 0.25 Mg Tab PO 0.25 mg Q8H PRN Administration Anxiety Amiodarone HCl 200 mg 12/13/21 22:00 12/17/21 12:49 Amiodarone 200 Mg Tab PO 200 mg BID RAMON Administration Apixaban 5 mg 12/16/21 22:00 12/17/21 12:49 Apixaban 5 Mg Tab PO 5 mg Q12HR RAMON Administration Protocol Docusate Sodium 100 mg 11/18/21 15:00 12/17/21 12:49 Docusate Sodium 100 Mg Cap PO Not Given BID RAMON Epoetin Landon-epbx 10,000 unit 12/06/21 10:00 12/15/21 15:15 Epoetin [place]-Epbx 10,000 Unit/1 Ml Vial IV 10,000 unit ZACH PRN Administration hemodialysis Famotidine 10 mg 11/06/21 10:00 12/17/21 12:48 Famotidine 10 Mg Tab PO 10 mg BID RAMON Administration Gabapentin 100 mg 11/28/21 14:00 12/17/21 13:01 Gabapentin 100 Mg Cap PO 100 mg Q8HR RAMON Administration Hydrophilic Ointment 1 applic 10/29/21 14:29 11/09/21 08:51 Lip Therapy Vaseline TP 1 applic Q2HR PRN Administration Dry Lips Sodium Chloride 100 mls @ 999 mls/hr 12/01/21 14:44 Nacl 0.9% IV ZACH PRN Hypotension Sodium Chloride 500 mls @ 0 mls/hr 12/15/21 11:54 Nacl 0.9% 500 Ml IV ONCE RAMON As Directed Sodium Chloride 100 mls @ 999 mls/hr 12/17/21 08:21 Nacl 0.9% IV ZACH PRN Hypotension Insulin Human Lispro 0 unit 11/25/21 22:00 12/17/21 17:01 Insulin Lispro 100 Unit/Ml SUB-Q Not Given ACHS [facility] Protocol Lactulose 20 gm 11/18/21 14:43 12/06/21 15:26 Lactulose 20 Gm/30 Ml Oral Liqd PO 20 gm Q6H PRN Administration Constipation Magnesium Hydroxide 30 ml 12/16/21 11:00 12/16/21 11:11 Magnesium Hydroxide (Mom) Oral Liqd Udc PO 30 ml Q4H PRN Administration Constipation Melatonin 10 mg 11/22/21 17:31 12/13/21 22:09 Melatonin 5 Mg Tab PO 10 mg QHS PRN Administration Sleep Metoprolol Tartrate 100 mg 12/07/21 11:00 12/17/21 12:48 Metoprolol Tartrate 50 Mg Tab PO 100 mg BID RAMON Administration Midodrine 10 mg 12/01/21 12:00 12/17/21 17:01 Midodrine 5 Mg Tab PO Not Given TID@0800,1200,1600 RAMON Morphine Sulfate 1 mg 11/28/21 15:00 12/10/21 16:34 Morphine 2 Mg/1 Ml Inj IV 1 mg Q4H PRN Administration Pain, Moderate (4-6) Multi-Ingred Cream/Lotion/Oil/Oint 1 applic 10/29/21 14:29 11/06/21 09:25 Mineral Oil/Petrolatum, White Ophth Oint 3.5 Gm OU 1 applic Q4HR PRN Administration Dry Eye(s) Oxycodone/Acetaminophen 1 tab 11/27/21 14:31 12/17/21 17:46 Oxycodone /Acetaminophen 5-325mg Tab PO 1 tab Q4H PRN Administration Pain, Moderate (4-6) Polyethylene Glycol 17 gm 11/20/21 12:47 12/08/21 09:54 Polyethylene Glycol 3350 17 Gm Powder PO 17 gm QDAY PRN Administration Constipation Senna/Docusate Sodium 1 tab 11/16/21 22:00 12/17/21 12:50 Sennosides/Docusate Sodium 8.6/50 Mg Tab PO Not Given BID RAMON Sodium Chloride 10 ml 10/29/21 22:00 12/17/21 12:49 Sodium Chloride 0.9% 10 Ml Flush Syringe IV 10 ml BID RAMON Administration Sodium Chloride 10 ml 10/29/21 17:04 Sodium Chloride 0.9% 10 Ml Flush Syringe IV PRN PRN LINE FLUSH Nutrition/Malnutrition Assess - Dietary Evaluation Nutrition/Malnutrition Findings: Nutrition Notes Start: 10/30/21 09:50 Freq: Status: Active Protocol: Document 12/14/21 17:12 MEENU (Rec: 12/14/21 17:44 MEENU [id number]) Nutrition Notes Initial or Follow up Reassessment Current Diagnosis Acute Kidney Injury,Sepsis, Hypertension,Respiratory Failure Other Pertinent Diagnosis s/p Cardiopulmonary Arrest, Anemia, SIERRA/CKD+HD prn, Pneumonia, Hyponatremia Current Diet Renal Diet (since B 12/14). Labs/Tests 12/14: Na 132, BUN 43, Crea 1. 9. Pertinent Medications 12/14: Albumin 50 gm, others nutritionally unremarkable. Height 5 ft 10 in Weight 117.6 kg [place] Body Weight (kg) 68.18 BMI 37.2 Weight change and time frame 2.8 Kg body weigh gain reported in 9 days. Weight Status Obese Subjective/Other Information RD consult for routine F/U on Dietary tolerance. No indication for Mechanical Soft diet found, I discontinued the indication, will assess at F/U. RN note 12/13: Assist with dinner. eat 40% of meal. Per MD, fluid restriction to 1 ,000 ml/day, according to Progress note. Percent of energy/protein needs met: Prescribed Renal Diet provides for energy/protein needs (2, 072 Kcal/77 g) during LOS. Burn Absent Trauma Absent GI Symptoms None Food Allergy No Skin Integrity/Comment Assessment WNL. Current % PO Poor (25-49%) Minimum of two criteria No #1 Nutrition Diagnosis Inadequate oral intake Comments: Pt's PO intake of meals has been at 40%, and well tolerated, according to RN notes. Diet advanced to Renal. Diagnosis Progress(for reassessment Continues documentation) Is patient on ventilator? No Is Patient Ambulatory and/or Out of Bed No REE-([facility]-confined to bed) 2154.516 Kcal/Kg value to use for calculation 14 Approximate Energy Requirements Using 1646 kcal/Kg Calculation Used for Recommendations Kcal/kg Additional Notes Protein: >1.2 g/Kg AdjBW; >110 g/day. Fluids: 1-1.5 L/day, or as per MD. Nutrition Intervention Change Diet Order: Resume Renal Diet. Add Supplement/Snack (indicate name/kcal 8 fl oz nepro w/CARBSTEADY; /protein ) BID. Provides kCal: 850 Provides Protein (gm) 38 Goal #1 Compensate, through dietary supplementation, for possible poor or insufficient PO intake of meals during LOS. Goal #2 Maintain body weight within +/ -3% of admission body weight during LOS. Follow-Up By: 12/21/21 Additional Comments Continue monitoring food tolerance, %PO intake of meals , and BM.
[2021-12-18] MEDS: GABAPENTIN 100 MG CAP PO SCH ×3 (06:20→22:39)
[2021-12-18 06:29] LABS: Hemoglobin 8.4 gm/dl (10.1-14.3); Mean Corpuscular HGB Conc 31 % (30-34); Mean Corpuscular Volume 95 fl (79-97); Platelet Count 180 K/mm3 (140-440); Red Blood Count 2.85 M/mm3 (3.65-5.03)
[2021-12-18 06:30] LABS: Red Cell Distribution Width 20.2 % (13.2-15.2)
[2021-12-18 06:35] LABS: Calcium 9.1 mg/dL (8.4-10.2)
[2021-12-18] MEDS: INSULIN LISPRO 100 UNIT/ML SUB-Q SCH ×4 (08:30→22:00)
[2021-12-18] MEDS: MIDODRINE 5 MG TAB PO SCH ×3 (09:17→16:58)
[2021-12-18] MEDS: FAMOTIDINE 10 MG TAB PO SCH ×2 (09:18→22:39)
[2021-12-18] MEDS: AMIODARONE 200 MG TAB PO SCH ×2 (09:18→22:38)
[2021-12-18] MEDS: DOCUSATE SODIUM 100 MG CAP PO SCH ×2 (09:18→22:38)
[2021-12-18] MEDS: APIXABAN 5 MG TAB PO SCH ×2 (09:18→22:38)
[2021-12-18] MEDS: METOPROLOL TARTRATE 50 MG TAB PO SCH (09:18)
--- NOTE | 2021-12-18 10:55 | Progress Note ---
Assessment and Plan Acute Renal Failure secondary to Ischemic ATN secondary to Sepsis, Cardiac arrest and Hypotension S/P Cardiac Arrest Acute Hypoxemic Respiratory Failure Acute DVT Sepsis CHF Anemia Hyperkalemia Hyponatremia Plan: s/p HD yesterday for high K. No HD today. Monitor for renal recovery. Making good urine. fluid restriction 1000 cc a day CHF-LVEF 25-30 % Anemia-On Epogen 10,000 units TIW Obtain daily weights Strict I/O's daily Renally dose medications Avoid nephrotoxic agents Continue to monitor renal function closely Assess dialysis needs daily Subjective Date of service: 12/18/21 Principal diagnosis: AHRF; Cardiac arrest; R. pneumothorax; pneumonia; AMS; DVT's; SIERRA; Obesity Interval history: Making urine. s/p HD yesterday. Objective - Exam Narrative Exam: - Physical Examination General: No Apparent Distress HEENT: Positive: EOMI, Normocephaly Neck: Positive: trachea midline. Negative: JVD/HJR Cardiac: Positive: irregularly irregular Lungs: Positive: Decreased Breath Sounds Neuro: Positive: Grossly Intact Abdomen: Positive: Soft Skin: Negative: Rash Musculoskeletal: No Pain Extremities: Present: upper extr. pulses, +1 Edema, warm - Vital Signs Vital signs: Vital Signs - 12hr 12/18/21 12/18/21 12/18/21 00:00 00:54 05:54 Temperature 98.4 F 97.6 F Pulse Rate 53 L 79 39 L Pulse Rate [ Apical] Pulse Rate [ From Monitor] Pulse Rate [ Right Radial] Respiratory 20 20 Rate Blood Pressure 150/77 Blood Pressure 115/61 [Left] O2 Sat by Pulse 100 100 Oximetry 12/18/21 12/18/21 12/18/21 06:18 07:49 10:00 Temperature 97.8 F Pulse Rate 80 65 Pulse Rate [ 84 Apical] Pulse Rate [ 86 From Monitor] Pulse Rate [ 86 Right Radial] Respiratory 18 18 Rate Blood Pressure 124/75 Blood Pressure [Left] O2 Sat by Pulse 100 99 Oximetry - Lab 12/18/21 05:32 12/18/21 05:32 Most recent lab results ABG pH 7.333 pH Units (7.350-7.450) L 12/12/21 14:10 ABG pCO2 50.1 mm Hg 12/12/21 14:10 ABG pO2 57.0 mm Hg (80.0-90.0) L 12/12/21 14:10 ABG HCO3 26.0 mmol/L (20.0-26.0) 12/12/21 14:10 ABG O2 Saturation 88.0 % (95.0-99.0) L 12/12/21 14:10 Calcium 9.1 mg/dL (8.4-10.2) 12/18/21 05:32 Phosphorus 5.20 mg/dL (2.5-4.5) H 12/02/21 03:22 Magnesium 1.60 mg/dL (1.7-2.3) L 11/19/21 14:38 Urine Creatinine 190.9 mg/dL (0.1-20.0) H 11/04/21 Unknown Urine Sodium 10 mmol/L 11/04/21 Unknown Urine Total Protein 172 mg/dL (5-11.8) H 11/04/21 Unknown Medications & Allergies - Medications Allergies/Adverse Reactions: Allergies No Known Allergies Allergy (Verified 10/29/21 14:01) Home Medications: Home Medications Medication Instructions Recorded Confirmed Last Taken Type Unobtainable 11/10/21 11/10/21 Unknown History Active Medications: Generic Name Dose Route Start Last Admin Trade Name Freq PRN Reason Stop Dose Admin Acetaminophen 650 mg 10/29/21 17:04 11/12/21 22:53 Acetaminophen 650 Mg Rect Supp DC 650 mg Q6H PRN Administration Pain MILD(1-3)/Fever >100.5/NIEVES Acetaminophen 650 mg 11/19/21 16:35 12/12/21 15:55 Acetaminophen 325 Mg Tab PO 650 mg Q6HR PRN Administration PAIN Albumin Human 50 gm 12/02/21 11:00 12/15/21 13:00 Albumin Human 25% (25 Gm/100 Ml) Inj IV 50 gm ZACH PRN Administration Hypotension Alprazolam 0.25 mg 11/14/21 14:29 12/15/21 11:02 Alprazolam 0.25 Mg Tab PO 0.25 mg Q8H PRN Administration Anxiety Amiodarone HCl 200 mg 12/13/21 22:00 12/18/21 09:18 Amiodarone 200 Mg Tab PO 200 mg BID RAMON Administration Apixaban 5 mg 12/16/21 22:00 12/18/21 09:18 Apixaban 5 Mg Tab PO 5 mg Q12HR RAMON Administration Protocol Docusate Sodium 100 mg 11/18/21 15:00 12/18/21 09:18 Docusate Sodium 100 Mg Cap PO 100 mg BID RAMON Administration Epoetin [place]-epbx 10,000 unit 12/06/21 10:00 12/15/21 15:15 Epoetin [place]-Epbx 10,000 Unit/1 Ml Vial IV 10,000 unit ZACH PRN Administration hemodialysis Famotidine 10 mg 11/06/21 10:00 12/18/21 09:18 Famotidine 10 Mg Tab PO 10 mg BID RAMON Administration Gabapentin 100 mg 11/28/21 14:00 12/18/21 06:20 Gabapentin 100 Mg Cap PO 100 mg Q8HR RAMON Administration Hydrophilic Ointment 1 applic 10/29/21 14:29 11/09/21 08:51 Lip Therapy Vaseline TP 1 applic Q2HR PRN Administration Dry Lips Sodium Chloride 100 mls @ 999 mls/hr 12/01/21 14:44 Nacl 0.9% IV ZACH PRN Hypotension Sodium Chloride 500 mls @ 0 mls/hr 12/15/21 11:54 Nacl 0.9% 500 Ml IV ONCE RAMON As Directed Sodium Chloride 100 mls @ 999 mls/hr 12/17/21 08:21 Nacl 0.9% IV ZACH PRN Hypotension Insulin Human Lispro 0 unit 11/25/21 22:00 12/18/21 08:30 Insulin Lispro 100 Unit/Ml SUB-Q Not Given ACHS [facility] Protocol Lactulose 20 gm 11/18/21 14:43 12/06/21 15:26 Lactulose 20 Gm/30 Ml Oral Liqd PO 20 gm Q6H PRN Administration Constipation Magnesium Hydroxide 30 ml 12/16/21 11:00 12/16/21 11:11 Magnesium Hydroxide (Mom) Oral Liqd Udc PO 30 ml Q4H PRN Administration Constipation Melatonin 10 mg 11/22/21 17:31 12/13/21 22:09 Melatonin 5 Mg Tab PO 10 mg QHS PRN Administration Sleep Metoprolol Tartrate 100 mg 12/07/21 11:00 12/18/21 09:18 Metoprolol Tartrate 50 Mg Tab PO 100 mg BID RAMON Administration Midodrine 10 mg 12/01/21 12:00 12/18/21 09:17 Midodrine 5 Mg Tab PO 10 mg TID@0800,1200,1600 RAMON Administration Morphine Sulfate 1 mg 11/28/21 15:00 12/10/21 16:34 Morphine 2 Mg/1 Ml Inj IV 1 mg Q4H PRN Administration Pain, Moderate (4-6) Multi-Ingred Cream/Lotion/Oil/Oint 1 applic 10/29/21 14:29 11/06/21 09:25 Mineral Oil/Petrolatum, White Ophth Oint 3.5 Gm OU 1 applic Q4HR PRN Administration Dry Eye(s) Oxycodone/Acetaminophen 1 tab 11/27/21 14:31 12/17/21 22:32 Oxycodone /Acetaminophen 5-325mg Tab PO 1 tab Q4H PRN Administration Pain, Moderate (4-6) Polyethylene Glycol 17 gm 11/20/21 12:47 12/08/21 09:54 Polyethylene Glycol 3350 17 Gm Powder PO 17 gm QDAY PRN Administration Constipation Sodium Chloride 10 ml 10/29/21 22:00 12/18/21 09:18 Sodium Chloride 0.9% 10 Ml Flush Syringe IV 10 ml BID RAMON Administration Sodium Chloride 10 ml 10/29/21 17:04 Sodium Chloride 0.9% 10 Ml Flush Syringe IV PRN PRN LINE FLUSH
--- NOTE | 2021-12-18 20:30 | Progress Note ---
Assessment and Plan Assessment and plan: Planned to discharge yesterday 12/18/2019, however patient had hyperkalemia, potassium 5.7 Nephrology evaluated, ordered stat hemodialysis, also recommended daily evaluation for daily need hemodialysis Discharge was held, closely monitor patient and adjust as needed --Acute kidney injury likely secondary to vasomotor nephropathy, hypernatremia On hemodialysis, patient received stat hemodialysis yesterday due to hyperkalemia Nephrology following, renal function better today, nephrology recommend daily monitoring And evaluation for HD as needed Possible discharge tomorrow if nephrology clears for discharge --Rectal bleeding /resolved Patient is on Eliquis, will hold Eliquis closely monitor H&H, Consult GI, transfuse PRBC as needed GI Dr. Flores evaluated the patient, advised bowel regimen s/p cardiac arrest, collapse at [facility], HFrEF, shock/hypotension resolved Atrial fibrillation/atrial flutter -Cardiac arrest and collapse at [facility] with ROSC -Cardiology consulted, appreciate recommendations - S/p Cardizem gtt- d/c due to low EF; now on PO Amio -s/p vasopressor support with levophed -Echocardiogram shows left ventricular systolic function severely decreased, LVEF 25 to 30%, no pericardial effusion -proBNP 5622 -Continue Lasix 20 mg twice daily, BB, spironolactone, losartan -No significant volume overload clinically Acute hypoxic respiratory failure, right pneumothorax, Angioedema (resolved), pulmonary edema -[facility] consulted, appreciate recommendations -Intubated on 10/29 and extubated on 11/11 -Bipap q HS and prn, at high risk for KOLBY with morbid obesity -NC during day -s/p right chest tube for pneumothorax -s/p steroids for angioedema -On Lasix for pulmonary edema. Transaminitis likely shocked liver - resolved Shock cardiogenicsuspected sepsis -Fever was as high as 102 with a leukocytosis Blood, urine and sputum cultures negative -COVID-19 PCR negative -S/p empiric antibiotic therapy for possible pneumonia with Rocephin and azithromycin () -S/p Levophed gtt for hypotension -Fever and leukocytosis resolved -Monitor WBC and temperature curve Acute Metabolic encephalopathy, agitation/anxiety -Etiology likely from a cardiac arrest, shock and cerebral hypoperfusion CT head no acute focal parenchymal lesion in the brain -Neurology consulted, appreciate recommendations -EEG and MRI noted, Neuro recommend to cut down on sedation as possible Mental status significantly improved, currently fairly alert and oriented. Answers appropriately. Acute DVT in the left posterior tibial vein and bilateral peroneal veins, Anemia, retroperitoneal bleed -D-dimer greater than 10,000 -CTA chest with no evidence of PE -Bilateral lower extremity ultrasound positive for DVT -Heparin gtt on hold d/t anemia, received PRBC x4 -vasuclar surgery consulted, appreciate recommendations -recommended multiphasic CT angio of the abdomen and pelvis with and without contrast if H/H drops and did not recommend IVC filter at this time as the DVTs are infrapopliteal and recommends a follow-up DVT study weekly for 2 weeks. Repeat venous duplex ultrasound on 11/21 showed progression of left peroneal DVT extending into popliteal vein. Vascular surgery completed IVC filter placement on 11/22. -Trend CBC -SCDs to BLE while in bed -Transfuse hemoglobin less than 7 -Monitor for signs of bleeding -Hemoglobin stable, 8.6 Hypertension, not able be controlled Increase losartan 200 mg daily and add hydralazine as needed. Hyperglycemia ,resolved) -Avoid hypoglycemia -Hbg A1C 6.7 -SSI and lantus q hs (titrate as needed) -Accu-Cheks q. 6 Morbid obesity; BMI 37.0 High risk for KOLBY, On nightly BiPAP Deconditioning PT/OT ;per case management Multiple social issues Brief history and daily hospital course 66 YO Female with Obesity was attending [facility] services when the patient collapsed and lost consciousness. Witnesses began CPR. EMS was notified and upon arrival the patient was found to be in distress without perfusing cardiac rhythm. Patient initiated on ACLS protocol and subsequently intubated in the field and transported to ED. The patient regained spontaneous circulation during transport. She was found to have acute hypoxemic respiratory failure, septic shock suspected secondary to aspiration pneumonia, metabolic acidosis, to xic metabolic encephalopathy, shock liver, and cardiac arrest with return of perfusing cardiac rhythm after initiation of ACLS protocol. Patient initiated on sepsis protocol as well as pneumonia protocol. Patient admitted to ICU. Patient improved, extubated on 11/11 and transferred to floor on 11/19. 10/30: Intubated and sedated, on fentanyl gtt. Open eyes spontaneously but does not follow any commands. On vasopressors, titrate as tolerated for MAP above 65. Patient febrile overnight, continue empiric IV Abx, culture data and COVID PCR pending. Patient is also s/p CT placement due to spontaneous pneumothorax. 2D echo is pending and Cardiology is consulted. 10/31: Patient remains intubated and following commands. Levophed drip stopped and potassium repleted. Patient started on tube feeding. Remains in soft bilateral restraints. 11/01: RN noted ST changes on BSM and 12 lead EKG obtained which showed ST. Given Ativan 1mg for agitation as she is maxed on fentanyl drip and IV push fentanyl did not seem to help. Patient was started on CPAP this morning by RT but remained on fentanyl drip and was having periods of apnea. Plan was to retry CPAP again in the p.m. with sedation off. 11/02: Rate increased r/t hypercapnea on ABG, sedation reduced. Given kionex for hyperkalemia and was started on levophed overnight for hypotension. 11/03: Overnight patient had tachycardia and was given Cardizem and Lopressor. Lopressor was repeated in the a.m. due to tachycardia. Patient will be started on amiodarone with a bolus per cardiology. Patient started on normal saline per liter per [facility] and steroids for angioedema. Noted to have bright red blood when suctioned from oh ETT. Remains on heparin drip as H/H is stable for now. Will reevaluate. Fentanyl drip was restarted last night due to agitation. Dr. Flores updated family today 11/04: Patient was sedated on fentanyl however off sedation is able to follow commands, a.m. labs completed in the p.m. and show hyperkalemia with increased renal function studies. Nephrology, neurology consulted by [facility]. Given Kayexalate, insulin and D50 for hyperkalemia. Patient remains on amiodarone. 11/05: Patient needed to be sedated on fentanyl again to today. overnight krishna was replaced. Hyperkalemia->given kionex 60 for 5.6. Repeat K 6-> Dr. Grant informed and requested bumex, kionex, insulin, d50, calcium gluconate and sodium bicarb with repeat BMP in 2 hours which were placed. HR remains elevated. 11/06: Patient remained in atrial fibrillation/atrial flutter with heart rate in the 150s despite being on amnio drip and was given amnio bolus, Cardizem bolus and started on Cardizem drip by cardiology. Patient is on beta-blockers p.o. scheduled and to feedings changed to Nepro. Kayexalate was given in the morning by nephrology due to hyperkalemia. 11/07: Patient is only responsive to mild stimuli, precedex added in an attempt to wean off fentanyl gtt to better assess her mental status. Neurology also on consult, pending MRI and EEG. Patient remains in Aflutter this am, HR in the 80 to 90s, still on amiodarone and heparin gtt. 11/08: Fentanyl gtt is off, only on precedex gtt. Patient is still not following any commands. MRI brain and EEG completed. Neuro recommendations noted, sedatives agents decreased. FWF added for hypernatremia and low K repleted, repeat labs ordered. Placed a call and spoke with patient's daughter, Eva Brown . She was updated on patient's conditions and status. All questions and concerns were voiced at this time. 11/09: Patient is awake and alert this am, following commands and appropriate. Remains on precedex gtt, plan for possible PST today. Hypertensive overnight, meds adjusted by Cardio and PRN Hydralazine added for SBP greater than 160. CT dislodged overnight, CXR is stable with no significant change. F/U CXR in the am. Patient's daughter, Eva Brown, visited with patient. She was updated on patient's status and goal of care for today. All questions and concerns were voiced at this time. 11/10: Mentation remains intact, still on precedex gtt. This am CXR noted still with fluid overload s/p X1 dose of IV lasix, good response from IV lasix overnight. Hypernatremia improved, D5W d/dayday. Still with persistent hypokalemia, continue electrolytes replacement and frequent lab check. Daily IV lasix and aldactone added by Cardio. Patient is also with persistent low grade fevers overnight, leukocytosis with mild improvement this am. Will get a repeat sputum culture, hold off on IV abx for now. Consider ID consult if fevers and leukocytosis persist. Patient tolerated PST X4hrs yesterday. PST again today, plan to wean to extubate if tolerated. 2/18: IAM overnight. Off precedex gtt and tolerated PST this am. Plan to wean to extubate today. Additional IV lasix given, plan to keep patient at a net negative balance for better lung compliance. F/U CXR in the am. K improved this am, repeat BMP this afternoon since diuresing. Remains with low grade fevers, leukocytosis downtrending, will continue to monitor. Speech/PT/OT ordered 11/12: S/p extubation, now stable on 3L NC. This am CXR noted with no significant changes, lasix changed to IV X4days BID. Drop in H&H this am, and Lt. flank ecchymosis noted. Heparin gtt on hold for now and orders placed for 1 unit of PRBCs and Ct Abd/Pelvis w/o con to r/o retroperitoneal bleed. Pending speech swallow eval, keep patient NPO for now. Patient is stable for IMCU status 11/13: Patient with increased WOB and tachycardia this am, patient was placed on Bipap and precedex gtt was resumed. CXR with mild improvement. CT Abd/Pelvis also reviewed large hematomas noted at the Lt. retroperitoneum and left posterior lateral abdominal wall. Heparin gtt is already on hold, patient is hemodynamically stable. Vascular Surgery consulted for possible IVC filter eval. Patient s/p 2units of PRBCs, will continue to trend H&H and transfuse if hbg is less than 7. Worsening renal function this am, IF diuretic on hold for now. Patient is also febrile with spike in wbcs most likely reactive to bleed, will panculture and hold off on IV Abx for now. Patient also failed speech bedside swallow eval yesterday, NGT in placed plan to resume enteral nutrition 11/14: Patient had bilateral lower extremity Doppler ultrasound and vascular surgery has recommended multiphasic CT angio of the abdomen and pelvis with and without contrast if H/H drops and does not recommend IVC filter at this time as the DVTs are infrapopliteal and recommends a DVT study weekly for 2 weeks. FWF 250 q4 ml per nephro. Started on as needed Xanax and p.o. amiodarone. She did not pass her ST evaluation today. Will be transferred to IMCU. 11/15: Resting comfortably on encounter. Speech cleared for pureed diet. Remains on 3l satting 98 % on bedside encounter. Does not appear to be in respiratory distress. Will continue to hold AC, No ivc filter planned at this time. qweekly doppler to monitor for migration of DVT per vascular. If demonstrated, will consider IVC filter. CBC ordered for tomorrow, will continue monitoring in light of retroperitoneal hematoma. FWF increased by nephrology to 350cc q4hr d/t hypernatremia. UOP/renal function both improved. D/w cardiology, will continue amiodorone an additional 24hrs. Plan to change dosing of metoprolol. Continue to wean off of precedex. Continue xanax scheduled for anxiety. physical therapy recs noted, fernanda / ltac will discuss with CM. Continue IMCU monitoring. 11/16: Pulmonary congestion this AM. CXR ordered. Lasix 40 mg IV x 1 order this AM. Will monitor for 24 hrs. potential downgrade to medical floor tomorrow. 11/17: Persisting pulmonary congestion, was on bipap overnight into this AM. Will order additional lasix 40 mg IV x 2. CXR ordered for AM. Possible downgrade to floor tomorrow. Anticipate d/c sunday. 11/18: Patient seen and examined, continue weaning, will continue diuresis BID, discussed with daughter. 11/19: Patient seen and examined this morning doing well no acute distress noted. Lasix was increased to twice daily to 20 mg IV. Clinically improving. Patient will be transferred to telemetry today can be switched to Lasix p.o. twice daily in a.m. She has her weekly Doppler of lower extremity tomorrow vascular is following for this. She was taken off anticoagulation secondary to retroperitoneal bleed., The anticoagulation was started initially for atrial fibrillation and an infrapopliteal DVT. During her hospital stay she had a prolonged ventilator management and was successfully weaned off. She also received a total of 4 units of packed red blood cell. Hemoglobin has remained stable. Anticipate discharge in next 48 hours if continues to clinically stay stable. : Transferred from ICU on 11/19. Progressive improving. Currently awake and oriented. O2 weaned to 4 L. Hemodynamically stable. BP control being optimized. MiraLAX for constipation. Hemoglobin stable on the heparin infusio n, being monitored closely with history of retroperitoneal bleed. 11/21: Patient remains mostly bedridden. She is awake and oriented on 2 L of O2. Repeat ultrasound showed extension of left peroneal DVT into popliteal vein. Heparin was discontinued for significant retroperitoneal bleed and off an ticoagulation since. Vascular surgery plan for placement of IVC filter tomorrow. Patient is chest pains, palpitations, hemoptysis. She has some cough. Left lower extremity pain likely from DVT better today. Discussed with the patient, nursing staff and vascular surgery. 11/22: The infrapopliteal vein thrombosis has propagated to the left popliteal vein. Vascular surgery to perform IVC filter placement today. 11/23: Vascular surgery placed IVC filter yesterday. Continue metoprolol 100 mg p.o. twice daily, Aldactone 25 mg p.o. daily and losartan 25 mg p.o. daily. Patient still requiring BiPAP (IPAP18, EPAP8) with FiO2 of 30%. Continue to wean oxygen per pulmonary recommendations. Nurse reports patient is having vaginal bleeding. We will check serial CBC and pelvic ultrasound 11/24: I discussed with cardiology yesterday the need for a LifeVest. LifeVest is ordered and pending. Patient is s/p IVC filter placement. Continue metoprolol 100 mg p.o. twice daily, Aldactone 25 mg p.o. daily and losartan 25 mg p.o. daily. Patient still requiring BiPAP (IPAP18, EPAP8) with FiO2 of 30%. Continue to wean oxygen per pulmonary recommendations. No further reports of vaginal bleeding. Pelvic ultrasound negative 11/25: Awaiting for LifeVest. Patient is s/p IVC filter placement. Continue metoprolol 100 mg p.o. twice daily, Aldactone 25 mg p.o. daily and losartan 25 mg p.o. daily. Patient still requiring BiPAP (IPAP18, EPAP8) with FiO2 of 30%. Continue to wean oxygen per pulmonary recommendations. 11/26: Physical therapy recommends subacute rehab. Still awaiting LifeVest. Patient is s/p IVC filter placement. Continue metoprolol 100 mg p.o. twice daily, Aldactone 25 mg p.o. daily and losartan 25 mg p.o. daily. Patient still requiring BiPAP (IPAP18, EPAP8) with FiO2 of 30% at night. Continue to wean oxygen per pulmonary recommendations. Patient currently with 2 L O2. 11/27: Physical therapy recommends subacute rehab. Patient has a LifeVest. Patient's left lower extremity pain likely related to DVT. Continue pain control. Continue metoprolol 100 mg p.o. twice daily, Aldactone 25 mg p.o. daily and losartan 25 mg p.o. daily. Patient still requiring BiPAP (IPAP18, EPAP8) with FiO2 of 30% at night. 11/28: Physical therapy recommends subacute rehab. Patient has a LifeVest. Patient continues to complain of left lower extremity pain which makes it very difficult for ambulation. Continue Percocet for pain control. Add neurontin for possible neuropathy. Etiology is likely secondary to DVT. Continue metoprolol 100 mg p.o. twice daily, Aldactone 25 mg p.o. daily and losartan 25 mg p.o. daily. Patient still requiring BiPAP (IPAP18, EPAP8) with FiO2 of 30% at night. Repeated Doppler US of LLE and will ask vascular surgery to revisit. 11/29; worsening lower extremity DVTs, vascular following, on heparin drip 11/30; low-grade fever, leukocytosis, shortness of breath, chest x-ray possible left-sided pneumonia/possible healthcare associated pneumonia Blood cultures already sent, empiric antibiotic cefepime[renal dose confirmed with pharmacist] ID consult if needed 12/01; gram-positive bacteremia preliminary, add vancomycin 1 dose, repeat cultures, consult ID Worsening renal function, nephrology initiated hemodialysis today, patient is critically ill, very poor prognosis, with multiple comorbidities And critical issues. Truck Hopper recommendations noted and appreciated 12/02; Gram positive bacteremia/possible HCAP and sepsis, on cefepime and 1 dose Vanco. Nephrology initiated hemodialysis, ID consult. Patient is hypotensive, pulmonary critical recommended transfer to ICU and start vasopressors for close observation overnight. Dr. Padron discussed with patient's daughter over patient's telephone and discussed in detail patient's condition, new developments sepsis, renal failure on hemodialysis anticoagulation for DVT and s evere cardiomyopathy, also discussed poor prognosis, and the plans of transferring the patient to ICU for close observation. Many questions, and answered all of them. dr. Padron also discussed with granddaughter at the bedside and patient was moved to ICU, She had numerous questions answered all of them and discussed the current condition prognosis and treatment plan. She verbalized understanding 12/03: Patient was transferred to ICU yesterday evening for hypotension however she did not need to be started on any vasopressin therapy. Patient is on p.o. midodrine and all her antihypertensives have been held. She also received albumin bolus. Patient will be transferred to the floor today. Still complains of bilateral lower extremity pain. Patient is on cefepime and she is scheduled for dialysis today. 12/04: Some complaint of leg pain. Percocet given for pain control. Patient is very deconditioned, will need aggressive PT. Will work on d/c planning with cm. 12/05: Patient does not appear to be in distress this AM. tachycardic hr on encounter and overnight, was given diltiazem by statue maker. Cardiology initiated metoprolol and amiodorone on patient this morning. She denies any pain except for discomfort in left lower extremity. Controlled with percocet. She also states that she does not have any urine output and has been constipated. Will order bowel regimen. Discharge needs discussed with CM which include Lifevest, BIPAP for nightly use, and possible set up for dialysis. She was visiting on a visa to the from [place] however is technically a citizen of [place] which makes placement a continued challenge. 12/06: Case management reports patient will need LifeVest, walker, CPAP and arrangements for outpatient hemodialysis. However, patient is uninsured. I discussed with the daughter Eva plans for home hospice. Eva reports that she is willing to have hospice to obtain additional resources but is not wanting palliative care/comfort measures. 12/07: Awaiting LifeVest and outpatient HD arrangements. I d/w CM discharge planning. Pt still with heparin drip but amiodarone changed to p.o. 200mg BID. Cont. Metoprolol 50mg BID. Hold LAYO and ARB for renal fxn. Patient for outpatient ischemic evaluation per Cardiology. Leukocytosis likely related to retroperitoneal hematoma. ID wants to monitor off abx. 12/08: Awaiting LifeVest and outpatient HD arrangements. I d/w CM discharge planning. Pt still with heparin drip. Await cardiology recommendations to transition to p.o. anticoagulation. Patient for outpatient ischemic evaluation per Cardiology. Leukocytosis likely related to retroperitoneal hematoma. Continue to monitor off antibiotics. Continue volume management per nephrology with hemodialysis 12/09: Patient with PermCath placement today. Nephrology reports patient hypotensive during hemodialysis and started 10 mg of midodrine for hypotension. Losartan discontinued. Continue to obtain daily weights and Strict I/O's. Eunice lly dose medications and avoid nephrotoxic agents. Patient for outpatient ischemic evaluation per Cardiology. Leukocytosis likely related to retroperitoneal hematoma. Continue to monitor off antibiotics. Awaiting LifeVest and outpatient HD arrangements. 12/10: Continue hemodialysis per nephrology recommendations. We will discontinue heparin drip and start Eliquis 5 mg p.o. twice daily for anticoagulation. Blood pressure appears to be improved. Continue midodrine. Continue to obtain daily weights and Strict I/O's. Renally dose medications and avoid nephrotoxic agents. Patient for outpatient ischemic evaluation per Cardiology. Leukocytosis likely related to retroperitoneal hematoma. Continue to monitor off antibiotics. Awaiting LifeVest and outpatient HD arrangements. 12/11: Cardiology plans for Lexiscan in a.m. Continue hemodialysis per nephrology recommendations. We will discontinue heparin drip and start Eliquis 5 mg p.o. twice daily for anticoagulation. Blood pressure appears to be improved. Continue midodrine. Continue to obtain daily weights and Strict I/O's. Renally dose medications and avoid nephrotoxic agents. 12/12: Lexiscan this morning per cardiology. Continue hemodialysis per nephrology recommendations. Continue Eliquis for anticoagulation. Continue midodrine. Continue to obtain daily weights and Strict I/O's. Renally dose medications and avoid nephrotoxic agents. 12/14; Lexiscan test yesterday was negative for ischemia, patient receiving physi fermin therapy, hemodialysis DC planning per case management. Hospice placement, multiple social issues 3;24; received 1 unit PRBC transfusion as patient has anemia with hemoglobin of 6.9 follow H&H and transfuse additional PRBC as needed DC planning per case management 3;25; patient had episode of rectal bleeding/melena this afternoon, patient received 1 unit PRBC yesterday for hemoglobin of 6.9 which improved to 8.2 Closely monitor H&H and transfuse additional PRBC as needed, GI consulted[disc ussed with Dr. Austyn Saleh] Hold Eliquis, I discussed in detail with the patient and her daughter about her recent benefits and consequences of holding Eliquis in the setting of DVT and A. fib due to severe bleeding, they verbalized understanding, patient does not have new episodes of bleeding we will resume Eliquis and closely monitor 12/17; patient did not have any new episodes of rectal bleeding, hemoglobin and hematocrit is stable, initially planning to discharge the patient home, however patient had hyperkalemia, nephrology scheduled for stat hemodialysis today, they wanted to closely monitor. Possible discharge in 1 to 2 days if cleared by nephrology. 12/18; patient's renal function is better today, no dialysis, hemoglobin above 8, hemodynamically stable Possible discharge tomorrow if patient is stable and cleared by nephrology History Interval history: No hemodialysis today, patient's potassium is normal level, creatinine trending down Follow renal recommendations. Planned to discharge yesterday 12/17/21 ,however patient had hyperkalemia, potassium 5.7, Nephrology evaluated, ordered stat hemodialysis, also recommended evaluation for daily need of hemodialysis .Discharge was held, Today patient is comfortable Renal function and kidney Hemoglobin more than 8 Patient has no new complaints Vital signs stable Hospitalist Physical - Constitutional Vitals: Temp Pulse Resp BP Pulse Ox 99.0 F 118 H 16 132/81 100 12/18/21 20:15 12/18/21 20:15 12/18/21 20:15 12/18/21 20:15 12/18/21 20:15 General appearance: Present: no acute distress, well-nourished, obese (Morbidly obese), other (Minimally communicative) - EENT Eyes: Present: PERRL, EOM intact - Neck Neck: Present: supple, normal ROM - Respiratory Respiratory effort: normal Respiratory: bilateral: diminished, negative: rales, rhonchi, wheezing - Cardiovascular Rhythm: regular Heart Sounds: Present: S1 & S2 - Extremities Extremities: no ischemia, No edema - Abdominal General gastrointestinal: soft, non-tender, non-distended, normal bowel sounds - Integumentary Integumentary: Present: clear, warm - Psychiatric Psychiatric: appropriate mood/affect, cooperative - Neurologic Neurologic: moves all extremities HEART Score - HEART Score Troponin: Troponin T 1.150 ng/mL (0.00-0.029) H* D 10/29/21 22:34 Results - Labs CBC & Chem 7: 12/18/21 05:32 12/18/21 05:32 Labs: Laboratory Last Values WBC 6.6 K/mm3 (4.5-11.0) 12/18/21 05:32 RBC 2.85 M/mm3 (3.65-5.03) L 12/18/21 05:32 Hgb 8.4 gm/dl (10.1-14.3) L 12/18/21 05:32 Hct 27.0 % (30.3-42.9) L 12/18/21 05:32 MCV 95 fl (79-97) 12/18/21 05:32 MCH 29 pg (28-32) 12/18/21 05:32 MCHC 31 % (30-34) 12/18/21 05:32 RDW 20.2 % (13.2-15.2) H 12/18/21 05:32 Plt Count 180 K/mm3 (140-440) 12/18/21 05:32 Lymph % (Auto) 16.9 % (13.4-35.0) 12/17/21 05:59 [place] % (Auto) 15.4 % (0.0-7.3) H 12/17/21 05:59 Eos % (Auto) 2.2 % (0.0-4.3) 12/17/21 05:59 Baso % (Auto) 1.2 % (0.0-1.8) 12/17/21 05:59 Lymph # (Auto) 1.2 K/mm3 (1.2-5.4) 12/17/21 05:59 [place] # (Auto) 1.1 K/mm3 (0.0-0.8) H 12/17/21 05:59 Eos # (Auto) 0.2 K/mm3 (0.0-0.4) 12/17/21 05:59 Baso # (Auto) 0.1 K/mm3 (0.0-0.1) 12/17/21 05:59 Add Manual Diff Complete 12/10/21 05:22 Total Counted 100 12/10/21 05:22 Seg Neutrophils % 64.3 % (40.0-70.0) 12/17/21 05:59 Seg Neuts % (Manual) 73.0 % (40.0-70.0) H 12/10/21 05:22 Band Neutrophils % 12.0 % 12/10/21 05:22 Lymphocytes % (Manual) 7.0 % (13.4-35.0) L 12/10/21 05:22 Reactive Lymphs % (Man) 0 % 12/10/21 05:22 Monocytes % (Manual) 1.0 % (0.0-7.3) 12/10/21 05:22 Eosinophils % (Manual) 1.0 % (0.0-4.3) 12/10/21 05:22 Basophils % (Manual) 2.0 % (0.0-1.8) H 12/10/21 05:22 Metamyelocytes % 0 % 12/10/21 05:22 Myelocytes % 4.0 % 12/10/21 05:22 Promyelocytes % 0 % 12/10/21 05:22 Blast Cells % 0 % 12/10/21 05:22 Nucleated RBC % 1.0 % (0.0-0.9) H 12/10/21 05:22 Seg Neutrophils # 4.6 K/mm3 (1.8-7.7) 12/17/21 05:59 Seg Neutrophils # Man 10.6 K/mm3 (1.8-7.7) H 12/10/21 05:22 Band Neutrophils # 1.7 K/mm3 12/10/21 05:22 Lymphocytes # (Manual) 1.0 K/mm3 (1.2-5.4) L 12/10/21 05:22 Abs React Lymphs (Man) 0.0 K/mm3 12/10/21 05:22 Monocytes # (Manual) 0.1 K/mm3 (0.0-0.8) 12/10/21 05:22 Eosinophils # (Manual) 0.1 K/mm3 (0.0-0.4) 12/10/21 05:22 Basophils # (Manual) 0.3 K/mm3 (0.0-0.1) H 12/10/21 05:22 Metamyelocytes # 0.0 K/mm3 12/10/21 05:22 Myelocytes # 0.6 K/mm3 12/10/21 05:22 Promyelocytes # 0.0 K/mm3 12/10/21 05:22 Blast Cells # 0.0 K/mm3 12/10/21 05:22 WBC Morphology Not Reportable 12/10/21 05:22 Hypersegmented Neuts Not Reportable 12/10/21 05:22 Hyposegmented Neuts Not Reportable 12/10/21 05:22 Hypogranular Neuts Not Reportable 12/10/21 05:22 Smudge Cells Not Reportable 12/10/21 05:22 Toxic Granulation Not Reportable 12/10/21 05:22 Toxic Vacuolation Not Reportable 12/10/21 05:22 Dohle Bodies Not Reportable 12/10/21 05:22 Pelger-Huet Anomaly Not Reportable 12/10/21 05:22 Manny Rods Not Reportable 12/10/21 05:22 Platelet Estimate Consistent w auto 12/10/21 05:22 Clumped Platelets Not Reportable 12/10/21 05:22 Plt Clumps, EDTA Not Reportable 12/10/21 05:22 Large Platelets Not Reportable 12/10/21 05:22 Giant Platelets Not Reportable 12/10/21 05:22 Platelet Satelliting Not Reportable 12/10/21 05:22 Plt Morphology Comment Not Reportable 12/10/21 05:22 RBC Morphology Not Reportable 12/10/21 05:22 Dimorphic RBCs Not Reportable 12/10/21 05:22 Polychromasia Not Reportable 12/10/21 05:22 Hypochromasia 1+ 12/10/21 05:22 Poikilocytosis Not Reportable 12/10/21 05:22 Anisocytosis 1+ 12/10/21 05:22 Microcytosis Not Reportable 12/10/21 05:22 Macrocytosis Not Reportable 12/10/21 05:22 Spherocytes Not Reportable 12/10/21 05:22 Pappenheimer Bodies Not Reportable 12/10/21 05:22 Sickle Cells Not Reportable 12/10/21 05:22 Target Cells Not Reportable 12/10/21 05:22 Tear Drop Cells Not Reportable 12/10/21 05:22 Ovalocytes Not Reportable 12/10/21 05:22 Helmet Cells Not Reportable 12/10/21 05:22 [place] Bodies Not Reportable 12/10/21 05:22 [place] Rings Not Reportable 12/10/21 05:22 [place] Cells Not Reportable 12/10/21 05:22 Bite Cells Not Reportable 12/10/21 05:22 Crenated Cell Not Reportable 12/10/21 05:22 Elliptocytes Not Reportable 12/10/21 05:22 Acanthocytes (Spur) Not Reportable 12/10/21 05:22 Rouleaux Not Reportable 12/10/21 05:22 Hemoglobin C Crystals Not Reportable 12/10/21 05:22 Schistocytes Not Reportable 12/10/21 05:22 Malaria parasites Not Reportable 12/10/21 05:22 Magdy Bodies Not Reportable 12/10/21 05:22 Hem Pathologist Commnt No 12/10/21 05:22 PT 16.8 Sec. (12.2-14.9) H 12/16/21 21:05 INR 1.22 (0.87-1.13) H 12/16/21 21:05 APTT 32.2 Sec. (24.2-36.6) 12/16/21 21:05 D-Dimer > 99890 ng/mlDDU (0-234) H 10/30/21 Unknown Heparin Anti-Xa Level Cancelled 12/11/21 13:08 ABG pH 7.333 pH Units (7.350-7.450) L 12/12/21 14:10 ABG pCO2 50.1 mm Hg 12/12/21 14:10 ABG pO2 57.0 mm Hg (80.0-90.0) L 12/12/21 14:10 ABG HCO3 26.0 mmol/L (20.0-26.0) 12/12/21 14:10 ABG O2 Saturation 88.0 % (95.0-99.0) L 12/12/21 14:10 ABG O2 Content 9.1 (0.0-44) 12/12/21 14:10 ABG Base Excess 0.0 mmol/L (-2.0-3.0) 12/12/21 14:10 ABG Hemoglobin 7.6 gm/dl (12.0-16.0) L 12/12/21 14:10 ABG Carboxyhemoglobin 2.2 % (0.0-5.0) 12/12/21 14:10 ABG Methemoglobin 0.7 % (0.0-1.5) 12/12/21 14:10 Oxyhemoglobin 85.4 % (95.0-99.0) L 12/12/21 14:10 FiO2 21 % 12/12/21 14:10 Sodium 137 mmol/L (137-145) 12/18/21 05:32 Potassium 4.5 mmol/L (3.6-5.0) D 12/18/21 05:32 Chloride 101.9 mmol/L (98-107) 12/18/21 05:32 Carbon Dioxide 25 mmol/L (22-30) 12/18/21 05:32 Anion Gap 15 mmol/L 12/18/21 05:32 BUN 33 mg/dL (7-17) H 12/18/21 05:32 Creatinine 1.4 mg/dL (0.6-1.2) H 12/18/21 05:32 Estimated GFR 45 ml/min 12/18/21 05:32 BUN/Creatinine Ratio 24 % 12/18/21 05:32 Glucose 105 mg/dL (65-100) H 12/18/21 05:32 POC Glucose 121 mg/dL (70-105) H 12/18/21 16:24 Hemoglobin A1c 6.7 % (4-6) H 10/31/21 04:30 Lactic Acid 0.70 mmol/L (0.7-2.0) 10/31/21 15:45 Calcium 9.1 mg/dL (8.4-10.2) 12/18/21 05:32 Phosphorus 5.20 mg/dL (2.5-4.5) H 12/02/21 03:22 Magnesium 1.60 mg/dL (1.7-2.3) L 11/19/21 14:38 Ferritin 208.4 ng/mL (10.0-200.0) H 10/30/21 Unknown Total Bilirubin 0.40 mg/dL (0.1-1.2) 12/14/21 06:36 Direct Bilirubin < 0.2 mg/dL (0-0.2) 12/14/21 06:36 Indirect Bilirubin 0.2 mg/dL 12/14/21 06:36 AST 12 units/L (5-40) 12/14/21 06:36 ALT < 5 units/L (7-56) L 12/14/21 06:36 Alkaline Phosphatase 81 units/L (35-129) 12/14/21 06:36 Ammonia 31.0 umol/L (25-60) 10/29/21 15:10 Lactate Dehydrogenase 469 units/L (91-180) H 10/30/21 Unknown Troponin T 1.150 ng/mL (0.00-0.029) H* D 10/29/21 22:34 C-Reactive Protein 13.40 mg/dL (0.00-1.30) H 10/30/21 Unknown Total Protein 6.0 g/dL (6.3-8.2) L 12/14/21 06:36 Albumin 3.0 g/dL (3.9-5) L 12/14/21 06:36 Albumin/Globulin Ratio 1.0 % 12/14/21 06:36 Triglycerides 68 mg/dL (2-149) 10/29/21 19:40 Cholesterol 98 mg/dL (50-199) 10/29/21 19:40 LDL Cholesterol Direct 43 mg/dL (50-130) L 10/29/21 19:40 HDL Cholesterol 50 mg/dL (40-59) 10/29/21 19:40 Cholesterol/HDL Ratio 1.96 % 10/29/21 19:40 Procalcitonin 61.95 ng/mL (<0.15) 10/30/21 Unknown TSH 3.080 mlU/mL (0.270-4.200) 10/29/21 15:10 Urine Color Yellow (Yellow) 11/13/21 08:30 Urine Turbidity Slightly-cloudy (Clear) 11/13/21 08:30 Urine pH 6.0 (5.0-7.0) 11/13/21 08:30 Ur Specific [place] 1.010 (1.003-1.030) 11/13/21 08:30 Urine Protein <15 mg/dl mg/dL (Negative) 11/13/21 08:30 Urine Glucose (UA) Neg mg/dL (Negative) 11/13/21 08:30 Urine Ketones Tr mg/dL (Negative) 11/13/21 08:30 Urine Blood Sm (Negative) 11/13/21 08:30 Urine Nitrite Neg (Negative) 11/13/21 08:30 Urine Bilirubin Neg (Negative) 11/13/21 08:30 Urine Urobilinogen < 2.0 mg/dL (<2.0) 11/13/21 08:30 Ur Leukocyte Esterase Neg (Negative) 11/13/21 08:30 Urine WBC (Auto) < 1.0 /HPF (0.0-6.0) 11/13/21 08:30 Urine RBC (Auto) < 1.0 /HPF (0.0-6.0) 11/13/21 08:30 U Epithel Cells (Auto) < 1.0 /HPF (0-13.0) 11/13/21 08:30 Urine Mucus Few /HPF 10/29/21 18:15 Urine Eosinophils None seen (None Seen) 11/04/21 Unknown Urine Creatinine 190.9 mg/dL (0.1-20.0) H 11/04/21 Unknown Protein/Creatinin Ratio 0.90 11/04/21 Unknown Urine Sodium 10 mmol/L 11/04/21 Unknown Urine Total Protein 172 mg/dL (5-11.8) H 11/04/21 Unknown Salicylates < 0.3 mg/dL (2.8-20.0) L 10/29/21 15:10 Urine Opiates Screen Negative 10/29/21 18:15 Urine Methadone Screen Negative 10/29/21 18:15 Acetaminophen 5.0 ug/mL (10.0-30.0) L 10/29/21 15:10 Ur Barbiturates Screen Negative 10/29/21 18:15 Ur Phencyclidine Scrn Negative 10/29/21 18:15 Ur Amphetamines Screen Negative 10/29/21 18:15 U Benzodiazepines Scrn Negative 10/29/21 18:15 Urine Cocaine Screen Negative 10/29/21 18:15 U Marijuana (THC) Screen Negative 10/29/21 18:15 Drugs of Abuse Note Disclamer 10/29/21 18:15 Plasma/Serum Alcohol < 0.01 % (0-0.07) 10/29/21 15:10 Coronavirus (PCR) Negative (Negative) 10/30/21 Unknown Hepatitis A IgM Ab Non-reactive (NonReactive) 12/01/21 19:36 Hep Bs Antigen Non-reactive (Negative) 12/01/21 19:36 Hep B Core IgM Ab Non-reactive (NonReactive) 12/01/21 19:36 Hepatitis C Antibody Non-reactive (NonReactive) 12/01/21 19:36 Blood Type O POSITIVE 12/15/21 12:08 Antibody Screen Negative 12/15/21 12:08 Crossmatch See Detail 12/15/21 12:08 Krishna/IV: Voiding Method External Female Catheter Active Medications - Current Medications Current Medications: Generic Name Dose Route Start Last Admin Trade Name Freq PRN Reason Stop Dose Admin Acetaminophen 650 mg 10/29/21 17:04 11/12/21 22:53 Acetaminophen 650 Mg Rect Supp OR 650 mg Q6H PRN Administration Pain MILD(1-3)/Fever >100.5/NIEVES Acetaminophen 650 mg 11/19/21 16:35 12/12/21 15:55 Acetaminophen 325 Mg Tab PO 650 mg Q6HR PRN Administration PAIN Albumin Human 50 gm 12/02/21 11:00 12/15/21 13:00 Albumin Human 25% (25 Gm/100 Ml) Inj IV 50 gm ZACH PRN Administration Hypotension Alprazolam 0.25 mg 11/14/21 14:29 12/15/21 11:02 Alprazolam 0.25 Mg Tab PO 0.25 mg Q8H PRN Administration Anxiety Amiodarone HCl 200 mg 12/13/21 22:00 12/18/21 09:18 Amiodarone 200 Mg Tab PO 200 mg BID RAMON Administration Apixaban 5 mg 12/16/21 22:00 12/18/21 09:18 Apixaban 5 Mg Tab PO 5 mg Q12HR RAMON Administration Protocol Docusate Sodium 100 mg 11/18/21 15:00 12/18/21 09:18 Docusate Sodium 100 Mg Cap PO 100 mg BID RAMON Administration Epoetin [place]-epbx 10,000 unit 12/06/21 10:00 12/15/21 15:15 Epoetin [place]-Epbx 10,000 Unit/1 Ml Vial IV 10,000 unit ZACH PRN Administration hemodialysis Famotidine 10 mg 11/06/21 10:00 12/18/21 09:18 Famotidine 10 Mg Tab PO 10 mg BID RAMON Administration Gabapentin 100 mg 11/28/21 14:00 12/18/21 14:02 Gabapentin 100 Mg Cap PO 100 mg Q8HR RAMON Administration Hydrophilic Ointment 1 applic 10/29/21 14:29 11/09/21 08:51 Lip Therapy Vaseline TP 1 applic Q2HR PRN Administration Dry Lips Sodium Chloride 100 mls @ 999 mls/hr 12/01/21 14:44 Nacl 0.9% IV ZACH PRN Hypotension Sodium Chloride 500 mls @ 0 mls/hr 12/15/21 11:54 Nacl 0.9% 500 Ml IV ONCE RAMON As Directed Sodium Chloride 100 mls @ 999 mls/hr 12/17/21 08:21 Nacl 0.9% IV ZACH PRN Hypotension Insulin Human Lispro 0 unit 11/25/21 22:00 12/18/21 17:17 Insulin Lispro 100 Unit/Ml SUB-Q Not Given ACHS [facility] Protocol Lactulose 20 gm 11/18/21 14:43 12/06/21 15:26 Lactulose 20 Gm/30 Ml Oral Liqd PO 20 gm Q6H PRN Administration Constipation Magnesium Hydroxide 30 ml 12/16/21 11:00 12/16/21 11:11 Magnesium Hydroxide (Mom) Oral Liqd Udc PO 30 ml Q4H PRN Administration Constipation Melatonin 10 mg 11/22/21 17:31 12/13/21 22:09 Melatonin 5 Mg Tab PO 10 mg QHS PRN Administration Sleep Metoprolol Tartrate 100 mg 12/07/21 11:00 12/18/21 09:18 Metoprolol Tartrate 50 Mg Tab PO 100 mg BID RAMON Administration Midodrine 10 mg 12/01/21 12:00 12/18/21 16:58 Midodrine 5 Mg Tab PO Not Given TID@0800,1200,1600 [facility] Morphine Sulfate 1 mg 11/28/21 15:00 12/10/21 16:34 Morphine 2 Mg/1 Ml Inj IV 1 mg Q4H PRN Administration Pain, Moderate (4-6) Multi-Ingred Cream/Lotion/Oil/Oint 1 applic 10/29/21 14:29 11/06/21 09:25 Mineral Oil/Petrolatum, White Ophth Oint 3.5 Gm OU 1 applic Q4HR PRN Administration Dry Eye(s) Oxycodone/Acetaminophen 1 tab 11/27/21 14:31 12/17/21 22:32 Oxycodone /Acetaminophen 5-325mg Tab PO 1 tab Q4H PRN Administration Pain, Moderate (4-6) Polyethylene Glycol 17 gm 11/20/21 12:47 12/08/21 09:54 Polyethylene Glycol 3350 17 Gm Powder PO 17 gm QDAY PRN Administration Constipation Sodium Chloride 10 ml 10/29/21 22:00 12/18/21 09:18 Sodium Chloride 0.9% 10 Ml Flush Syringe IV 10 ml BID RAMON Administration Sodium Chloride 10 ml 10/29/21 17:04 Sodium Chloride 0.9% 10 Ml Flush Syringe IV PRN PRN LINE FLUSH Nutrition/Malnutrition Assess - Dietary Evaluation Nutrition/Malnutrition Findings: Nutrition Notes Start: 10/30/21 09:50 Freq: Status: Active Protocol: Document 12/14/21 17:12 MEENU (Rec: 12/14/21 17:44 MEENU [id number]) Nutrition Notes Initial or Follow up Reassessment Current Diagnosis Acute Kidney Injury,Sepsis, Hypertension,Respiratory Failure Other Pertinent Diagnosis s/p Cardiopulmonary Arrest, Anemia, SIERRA/CKD+HD prn, Pneumonia, Hyponatremia Current Diet Renal Diet (since B 12/14). Labs/Tests 12/14: Na 132, BUN 43, Crea 1. 9. Pertinent Medications 12/14: Albumin 50 gm, others nutritionally unremarkable. Height 5 ft 10 in Weight 117.6 kg [place] Body Weight (kg) 68.18 BMI 37.2 Weight change and time frame 2.8 Kg body weigh gain reported in 9 days. Weight Status Obese Subjective/Other Information RD consult for routine F/U on Dietary tolerance. No indication for Mechanical Soft diet found, I discontinued the indication, will assess at F/U. RN note 12/13: Assist with dinner. eat 40% of meal. Per MD, fluid restriction to 1 ,000 ml/day, according to Progress note. Percent of energy/protein needs met: Prescribed Renal Diet provides for energy/protein needs (2, 072 Kcal/77 g) during LOS. Burn Absent Trauma Absent GI Symptoms None Food Allergy No Skin Integrity/Comment Assessment WNL. Current % PO Poor (25-49%) Minimum of two criteria No #1 Nutrition Diagnosis Inadequate oral intake Comments: Pt's PO intake of meals has been at 40%, and well tolerated, according to RN notes. Diet advanced to Renal. Diagnosis Progress(for reassessment Continues documentation) Is patient on ventilator? No Is Patient Ambulatory and/or Out of Bed No REE-([facility]-confined to bed) 2154.516 Kcal/Kg value to use for calculation 14 Approximate Energy Requirements Using 1646 kcal/Kg Calculation Used for Recommendations Kcal/kg Additional Notes Protein: >1.2 g/Kg AdjBW; >110 g/day. Fluids: 1-1.5 L/day, or as per MD. Nutrition Intervention Change Diet Order: Resume Renal Diet. Add Supplement/Snack (indicate name/kcal 8 fl oz nepro w/CARBSTEADY; /protein ) BID. Provides kCal: 850 Provides Protein (gm) 38 Goal #1 Compensate, through dietary supplementation, for possible poor or insufficient PO intake of meals during LOS. Goal #2 Maintain body weight within +/ -3% of admission body weight during LOS. Follow-Up By: 12/21/21 Additional Comments Continue monitoring food tolerance, %PO intake of meals , and BM.
[2021-12-18] MEDS: MAGNESIUM HYDROXIDE (MOM) ORAL LIQD UDC PO PRN (21:17)
[2021-12-19] MEDS: METOPROLOL TARTRATE 50 MG TAB PO SCH ×3 (00:30→21:26)
[2021-12-19 05:27] LABS: Calcium 9.1 mg/dL (8.4-10.2)
[2021-12-19] MEDS: GABAPENTIN 100 MG CAP PO SCH ×3 (06:51→21:26)
--- NOTE | 2021-12-19 09:10 | Discharge Summary ---
Providers - Providers Date of Admission: 10/29/21 17:04 Date of discharge: 12/19/21 Attending physician: SAM COLE 10/29/21 14:29 Consult to Physician [CONS] Stat Comment: noted Consulting Provider: BETHANY INMAN Physician Instructions: Reason For Exam: cardiac arrestn w rosc 10/30/21 07:43 Consult to Physician [CONS] Routine Comment: called answ. serv./ ирина Consulting Provider: SHIRIN CUTLER Physician Instructions: Reason For Exam: S/p Cardiac Arrest 10/31/21 08:56 Consult to Dietitian/Nutrition [CONS] Routine Physician Instructions: Assess nutrtn needs, initiate, modify, manage TF Reason For Exam: Reason for Consult: Write/Manage Tube Feeding Reason for Consult: Write/Manage Tube Feeding 11/04/21 13:13 Consult to Physician [CONS] Routine Comment: Consulting Provider: DHRUV GONSALEZ Physician Instructions: Reason For Exam: [place] 11/04/21 14:18 Consult to Physician [CONS] Routine Comment: Consulting Provider: ELVIRA EDWARDS Physician Instructions: Reason For Exam: AMS s/p Cardiac arrest 11/11/21 13:15 Midline [Consult to PICC Line RN] [CONS] Routine Reason For Exam: PIV neededf to D/C Central Line Type Line:: Midline 11/11/21 13:16 Speech Therapy Evaluation and Treat [CONS] Routine Reason For Exam: Post Extubation 11/11/21 14:17 Occupational Therapy Evaluate and Treat [CONS] Routine Comment: Reason For Exam: Debility Physical Therapy Evaluation and Treat [CONS] Routine Comment: Reason For Exam: Eval and Treat 11/12/21 16:44 Consult to Physician [CONS] Routine Comment: Consulting Provider: NAHEED WHYTE Physician Instructions: Reason For Exam: IVC FILTER EVAL 11/30/21 14:11 Consult to Physician [CONS] Routine Comment: Consulting Provider: RUFINO MAYORGA Physician Instructions: Reason For Exam: Acute kidney injury/creatinine 3.4/reconsult 12/01/21 11:48 Consult to Interventional Radiology [CONS] Routine Consulting Provider: NAHEED LOPEZ Reason For Exam: Vasc cath placement Place consult to:: Dr. Del Real Notified:: Alba NAYAK Comment:: Dr. Lopez is aware of consult. 12/01/21 13:03 Consult to Physician [CONS] Routine Comment: Consulting Provider: DHRUV GONSALEZ Physician Instructions: Reason For Exam: renal failure 12/01/21 18:53 Consult to Physician [CONS] Routine Comment: Consulting Provider: GUERLINE ESPINO Physician Instructions: Reason For Exam: Gram-positive bacteremia/sepsis 12/16/21 14:04 Consult to Physician [CONS] Routine Comment: Consulting Provider: KARLEY FLORES Physician Instructions: Reason For Exam: Rectal bleeding Primary care physician: PRISM INSPECTOR Hospitalization Condition: Critical Pertinent studies: CT head CTA chest CT cervical spine Chest x-ray Echocardiogram Lower extremity venous Doppler Abdominal x-ray Chest x-rays multiple Renal ultrasound MRI brain Abdominal and pelvis CT Lower extremity venous Doppler Vas-Cath placement for hemodialysis X-ray tibia-fibula Abdominal and pelvic CTA Chest CTA Stress test negative Hemodialysis per schedule Permacath removal Hospital course: Assessment and plan: Planned to discharge yesterday 12/18/2019, however patient had hyperkalemia, potassium 5.7 Nephrology evaluated, ordered stat hemodialysis, also recommended daily evaluation for daily need hemodialysis Discharge was held, closely monitor patient and adjust as needed --Acute kidney injury likely secondary to vasomotor nephropathy, hypernatremia On hemodialysis, patient received stat hemodialysis yesterday due to hyperkalemia Nephrology following, renal function better today, nephrology recommend daily monitoring And evaluation for HD as needed Possible discharge tomorrow if nephrology clears for discharge --Rectal bleeding /resolved Patient is on Eliquis, will hold Eliquis closely monitor H&H, Consult GI, transfuse PRBC as needed GI Dr. Flores evaluated the patient, advised bowel regimen s/p cardiac arrest, collapse at [facility], HFrEF, shock/hypotension resolved Atrial fibrillation/atrial flutter -Cardiac arrest and collapse at [facility] with ROSC -Cardiology consulted, appreciate recommendations - S/p Cardizem gtt- d/c due to low EF; now on PO Amio -s/p vasopressor support with levophed -Echocardiogram shows left ventricular systolic function severely decreased, LVEF 25 to 30%, no pericardial effusion -proBNP 5622 -Continue Lasix 20 mg twice daily, BB, spironolactone, losartan -No significant volume overload clinically Acute hypoxic respiratory failure, right pneumothorax, Angioedema (resolved), pulmonary edema -[facility] consulted, appreciate recommendations -Intubated on 10/29 and extubated on 11/11 -Bipap q HS and prn, at high risk for KOLBY with morbid obesity -NC during day -s/p right chest tube for pneumothorax -s/p steroids for angioedema -On Lasix for pulmonary edema. Transaminitis likely shocked liver - resolved Shock cardiogenicsuspected sepsis -Fever was as high as 102 with a leukocytosis Blood, urine and sputum cultures negative -COVID-19 PCR negative -S/p empiric antibiotic therapy for possible pneumonia with Rocephin and azithromycin () -S/p Levophed gtt for hypotension -Fever and leukocytosis resolved -Monitor WBC and temperature curve Acute Metabolic encephalopathy, agitation/anxiety -Etiology likely from a cardiac arrest, shock and cerebral hypoperfusion CT head no acute focal parenchymal lesion in the brain -Neurology consulted, appreciate recommendations -EEG and MRI noted, Neuro recommend to cut down on sedation as possible Mental status significantly improved, currently fairly alert and oriented. Answers appropriately. Acute DVT in the left posterior tibial vein and bilateral peroneal veins, Anemia, retroperitoneal bleed -D-dimer greater than 10,000 -CTA chest with no evidence of PE -Bilateral lower extremity ultrasound positive for DVT -Heparin gtt on hold d/t anemia, received PRBC x4 -vasuclar surgery consulted, appreciate recommendations -recommended multiphasic CT angio of the abdomen and pelvis with and without contrast if H/H drops and did not recommend IVC filter at this time as the DVTs are infrapopliteal and recommends a follow-up DVT study weekly for 2 weeks. Repeat venous duplex ultrasound on 11/21 showed progression of left peroneal DVT extending into popliteal vein. Vascular surgery completed IVC filter placement on 11/22. -Trend CBC -SCDs to BLE while in bed -Transfuse hemoglobin less than 7 -Monitor for signs of bleeding -Hemoglobin stable, 8.6 Hypertension, not able be controlled Increase losartan 200 mg daily and add hydralazine as needed. Hyperglycemia ,resolved) -Avoid hypoglycemia -Hbg A1C 6.7 -SSI and lantus q hs (titrate as needed) -Accu-Cheks q. 6 Morbid obesity; BMI 37.0 High risk for KOLBY, On nightly BiPAP Deconditioning PT/OT Disposition: 30 STILL A PATIENT Final Discharge Diagnosis (Prints w/discharge instructions): Cardiac arrest. cardiomyopathy ejection fraction 25 to 30%. Atrial fibrillation/flutter. Rectal bleeding/resolved. Acute kidney injury transition to acute on chronic requiring dialysis. Renal function improved, dialysis discontinued. Acute hypoxic respiratory failure requiring intubation 10/29/2021. Extubation 11/11/2021. Shock liver/transaminitis improved. Cardiogenic shock resolved. Acute metabolic encephalopathy. Acute DVT. Retroperitoneal bleed. Anemia. Hypertension. Hypoglycemia. Morbid obesity BMI 37.0. General debility and deconditioning Time spent for discharge: 45 minutes Core Measure Documentation - Palliative Care Palliative Care/ Comfort Measures: Not Applicable - Core Measures Any of the following diagnoses?: DVT/PE, heart failure - VTE Discharge Requirements Deep Vein Thrombosis/Pulmonary Embolism Present on Admission: Yes Has pt received <5 days of overlap therapy or INR<2.0: No (Patient on Eliquis) Anticoagulant overlap therapy prescribed at discharge: No Contraindication No Overlap Therapy order at DC: Not Indicated (Patient on Eliquis) - Heart Failure Discharge Requirements LAYO/ARB for LVSD if EF <40%: No Reason for no LAYO/ARB: Renal impairment Beta marizol at discharge: Yes Exam - Constitutional Vitals: Temp Pulse Resp BP Pulse Ox 98.8 F 71 18 140/86 99 12/19/21 08:10 12/19/21 08:10 12/19/21 08:10 12/19/21 08:10 12/19/21 08:10 Plan Activity: advance as tolerated, fall precautions Diet: other (Cardiac diet as tolerated) Additional Instructions: Fall precautions. If you have worsening symptoms contact MD or go to the nearest emergency room as needed. Advised to follow-up with primary care physician. Advised to follow with red cap per schedule. Advised to follow radio director per schedule. Advised to follow event management consultant per schedule. Advised to comply with medications, diet, follow-up visits. Advised diet modification, exercise as tolerated, and weight reduction when medically stable Follow up with: JAVID WALL MD [Primary Care Provider] - 7 Days SHIRIN CUTLER MD [Staff Physician] - 14 Days BETHANY INMAN MD [Staff Physician] - 7 Days RUFINO MAYORGA MD [Staff Physician] - 7 Days KP DARDEN MD [Staff Physician] - 14 Days Prescriptions: Docusate Sodium [Colace CAP] 100 mg PO BID #30 capsule Amiodarone [Cordarone 200 MG TAB] 200 mg PO BID #60 tablet Apixaban [Eliquis] 5 mg PO Q12HR #60 tablet Gabapentin 100 mg PO Q8HR #60 capsule Metoprolol [Lopressor TAB] 100 mg PO BID #60 tablet Melatonin [Melatonin 5MG TAB] 10 mg PO QHS PRN #10 tablet PRN Reason: Sleep Famotidine [Pepcid] 10 mg PO BID #30 tablet oxyCODONE /ACETAMINOPHEN [Percocet 5/325 mg] 1 tab PO Q4H PRN #20 tablet PRN Reason: Pain, Moderate (4-6) ALPRAZolam [Xanax TAB] 0.25 mg PO Q8H PRN #15 tablet PRN Reason: Anxiety
[2021-12-19] MEDS: DOCUSATE SODIUM 100 MG CAP PO SCH ×2 (09:37→21:26)
[2021-12-19] MEDS: INSULIN LISPRO 100 UNIT/ML SUB-Q SCH ×4 (09:37→22:54)
[2021-12-19] MEDS: AMIODARONE 200 MG TAB PO SCH ×2 (09:37→21:26)
[2021-12-19] MEDS: APIXABAN 5 MG TAB PO SCH ×2 (09:38→21:26)
[2021-12-19] MEDS: FAMOTIDINE 10 MG TAB PO SCH ×2 (09:38→21:26)
[2021-12-19] MEDS: MIDODRINE 5 MG TAB PO SCH ×3 (09:38→19:07)
--- NOTE | 2021-12-19 12:01 | Progress Note ---
Assessment and Plan Acute Renal Failure secondary to Ischemic ATN secondary to Sepsis, Cardiac arrest and Hypotension S/P Cardiac Arrest Acute Hypoxemic Respiratory Failure Acute DVT Sepsis CHF Anemia Hyperkalemia Hyponatremia Plan: stable Cr can be discharged from [facility] today, Dr Matthews was notified that she needs to have permcath removed fluid restriction 1000 cc a day CHF-LVEF 25-30 % Anemia-On Epogen Obtain daily weights Strict I/O's daily Renally dose medications Avoid nephrotoxic agents Continue to monitor renal function closely Assess dialysis needs daily Subjective Date of service: 12/19/21 Principal diagnosis: AHRF; Cardiac arrest; R. pneumothorax; pneumonia; AMS; DVT's; SIERRA; Obesity Interval history: ready to go home Objective - Vital Signs Vital signs: Vital Signs - 12hr 12/19/21 12/19/21 12/19/21 00:30 00:33 04:54 Temperature 98.9 F 98.7 F Pulse Rate 125 H 125 H 95 H Respiratory 16 20 Rate Blood Pressure 135/87 135/87 145/71 O2 Sat by Pulse 95 97 Oximetry 12/19/21 12/19/21 08:10 11:51 Temperature 98.8 F Pulse Rate 71 Respiratory 18 Rate Blood Pressure 140/86 O2 Sat by Pulse 99 97 Oximetry - General Appearance General appearance: well-developed, well-nourished, obese EENT: ATNC, PERRL Respiratory: Present: Decreased Breath Sounds Cardiology: regular, S1S2 Gastrointestinal: normoactive bowel sounds, no tenderness, no distended, no masses Integumentary: no rash, warm and dry Neurologic: no focal deficit, no asterixis Psychiatric: mood/affect appropriate, cooperative - Lab 12/18/21 05:32 12/19/21 04:38 Most recent lab results ABG pH 7.333 pH Units (7.350-7.450) L 12/12/21 14:10 ABG pCO2 50.1 mm Hg 12/12/21 14:10 ABG pO2 57.0 mm Hg (80.0-90.0) L 12/12/21 14:10 ABG HCO3 26.0 mmol/L (20.0-26.0) 12/12/21 14:10 ABG O2 Saturation 88.0 % (95.0-99.0) L 12/12/21 14:10 Calcium 9.1 mg/dL (8.4-10.2) 12/19/21 04:38 Phosphorus 5.20 mg/dL (2.5-4.5) H 12/02/21 03:22 Magnesium 1.60 mg/dL (1.7-2.3) L 11/19/21 14:38 Urine Creatinine 190.9 mg/dL (0.1-20.0) H 11/04/21 Unknown Urine Sodium 10 mmol/L 11/04/21 Unknown Urine Total Protein 172 mg/dL (5-11.8) H 11/04/21 Unknown Medications & Allergies - Medications Allergies/Adverse Reactions: Allergies No Known Allergies Allergy (Verified 10/29/21 14:01) Home Medications: Home Medications Medication Instructions Recorded Confirmed Last Taken Type Unobtainable 11/10/21 11/10/21 Unknown History Active Medications: Generic Name Dose Route Start Last Admin Trade Name Freq PRN Reason Stop Dose Admin Acetaminophen 650 mg 10/29/21 17:04 11/12/21 22:53 Acetaminophen 650 Mg Rect Supp MI 650 mg Q6H PRN Administration Pain MILD(1-3)/Fever >100.5/NIEVES Acetaminophen 650 mg 11/19/21 16:35 12/12/21 15:55 Acetaminophen 325 Mg Tab PO 650 mg Q6HR PRN Administration PAIN Albumin Human 50 gm 12/02/21 11:00 12/15/21 13:00 Albumin Human 25% (25 Gm/100 Ml) Inj IV 50 gm ZACH PRN Administration Hypotension Alprazolam 0.25 mg 11/14/21 14:29 12/15/21 11:02 Alprazolam 0.25 Mg Tab PO 0.25 mg Q8H PRN Administration Anxiety Amiodarone HCl 200 mg 12/13/21 22:00 12/19/21 09:37 Amiodarone 200 Mg Tab PO 200 mg BID RAMON Administration Apixaban 5 mg 12/16/21 22:00 12/19/21 09:38 Apixaban 5 Mg Tab PO 5 mg Q12HR RAMON Administration Protocol Docusate Sodium 100 mg 11/18/21 15:00 12/19/21 09:37 Docusate Sodium 100 Mg Cap PO 100 mg BID RAMON Administration Epoetin Landon-epbx 10,000 unit 12/06/21 10:00 12/15/21 15:15 Epoetin [place]-Epbx 10,000 Unit/1 Ml Vial IV 10,000 unit ZACH PRN Administration hemodialysis Famotidine 10 mg 11/06/21 10:00 12/19/21 09:38 Famotidine 10 Mg Tab PO 10 mg BID RAMON Administration Gabapentin 100 mg 11/28/21 14:00 12/19/21 06:51 Gabapentin 100 Mg Cap PO 100 mg Q8HR RAMON Administration Hydrophilic Ointment 1 applic 10/29/21 14:29 11/09/21 08:51 Lip Therapy Vaseline TP 1 applic Q2HR PRN Administration Dry Lips Sodium Chloride 100 mls @ 999 mls/hr 12/01/21 14:44 Nacl 0.9% IV ZACH PRN Hypotension Sodium Chloride 500 mls @ 0 mls/hr 12/15/21 11:54 Nacl 0.9% 500 Ml IV ONCE RAMON As Directed Sodium Chloride 100 mls @ 999 mls/hr 12/17/21 08:21 Nacl 0.9% IV ZACH PRN Hypotension Insulin Human Lispro 0 unit 11/25/21 22:00 12/19/21 09:37 Insulin Lispro 100 Unit/Ml SUB-Q Not Given ACHS [facility] Protocol Lactulose 20 gm 11/18/21 14:43 12/06/21 15:26 Lactulose 20 Gm/30 Ml Oral Liqd PO 20 gm Q6H PRN Administration Constipation Magnesium Hydroxide 30 ml 12/16/21 11:00 12/18/21 21:17 Magnesium Hydroxide (Mom) Oral Liqd Udc PO 30 ml Q4H PRN Administration Constipation Melatonin 10 mg 11/22/21 17:31 12/13/21 22:09 Melatonin 5 Mg Tab PO 10 mg QHS PRN Administration Sleep Metoprolol Tartrate 100 mg 12/07/21 11:00 12/19/21 09:37 Metoprolol Tartrate 50 Mg Tab PO 100 mg BID RAMON Administration Midodrine 10 mg 12/01/21 12:00 12/19/21 09:38 Midodrine 5 Mg Tab PO Not Given TID@0800,1200,1600 [facility] Morphine Sulfate 1 mg 11/28/21 15:00 12/10/21 16:34 Morphine 2 Mg/1 Ml Inj IV 1 mg Q4H PRN Administration Pain, Moderate (4-6) Multi-Ingred Cream/Lotion/Oil/Oint 1 applic 10/29/21 14:29 11/06/21 09:25 Mineral Oil/Petrolatum, White Ophth Oint 3.5 Gm OU 1 applic Q4HR PRN Administration Dry Eye(s) Oxycodone/Acetaminophen 1 tab 11/27/21 14:31 12/17/21 22:32 Oxycodone /Acetaminophen 5-325mg Tab PO 1 tab Q4H PRN Administration Pain, Moderate (4-6) Polyethylene Glycol 17 gm 11/20/21 12:47 12/08/21 09:54 Polyethylene Glycol 3350 17 Gm Powder PO 17 gm QDAY PRN Administration Constipation Sodium Chloride 10 ml 10/29/21 22:00 12/19/21 09:39 Sodium Chloride 0.9% 10 Ml Flush Syringe IV 10 ml BID RAMON Administration Sodium Chloride 10 ml 10/29/21 17:04 Sodium Chloride 0.9% 10 Ml Flush Syringe IV PRN PRN LINE FLUSH
--- NOTE | 2021-12-19 12:38 | Progress Note ---
Assessment and Plan 66 YO Female with Obesity presents to ED for evaluation. Patient is intubated and on ventilatory support . Patient was attending [facility] services when the patient collapsed and lost consciousness. Witnesses began CPR. EMS was notified and upon arrival the patient was found to be in distress without perfusing cardiac rhythm. Patient initiated on ACLS protocol and subsequently intubated in the field and subsequent transported to [facility] for further care and evaluation of the aforementioned symptoms. The patient regained spontaneous ci rculation during transport. Patient seen and evaluated upon arrival and found to have acute hypoxemic respiratory failure, septic shock suspected secondary to aspiration pneumonia, metabolic acidosis, toxic metabolic encephalopathy, shock liver, and cardiac arrest with return of perfusing cardiac rhythm after initiation of ACLS protocol. Patient initiated on sepsis protocol as well as pneumonia protocol. Patient admitted to ICU. No reports of fever, chills, chest pain, palpitation, productive cough, skin rash, recent contact, known exposure to COVID-19. Patient has history of diabetes and hypertension. According to the chart review, patient has no history of smoking, alcohol or drug abuse. Patient eventually extubated. Patient transfered to Telemetry. Patient awake on 2 litre O2. O2 saturation 95%. No complaint of chest pain, shortness of breath or cough. Patient Obese , No acute respiratory distress. Patient afebrile. No leukocytosis. Blood pressure 135/87, pulse 125, R espirations 16. Chest xray done 11/18/21 reported Improving interstitial edema. Bilateral duplex study of legs 11/21/21 reported Acute occlusive thrombus is now visualized within the right peroneal veins. There is propagation of the left calf DVT into the popliteal vein on today's exam (near occlusive). CTA of chest:12/01/21 reported The exam is limited secondary to respiratory motion artifact. Low lung volumes. No central pulmonary thromboembolus is identified. The thoracic aorta is grossly unremarkable without aneurysm or dissection. Mild bibasilar atelectasis are present. Incidentally there are multiple healing anterior rib fractures involving the first, second, third, fourth, fifth, sixth and seventh ribs bilaterally. There is a nondisplaced fracture involving the left eighth rib. Chest xray done 12/12/21 reported Pleuroparenchymal opacity in the left lower hemithorax is probably unchanged. No new abnormality. No pneumothorax. Patient presently on famotidine. Eliquis. DVT Management as per vascular surgery. - Patient Problems (1) Acute hypoxemic respiratory failure Current Visit: Yes Status: Acute Plan to address problem: Patient presently on 2 litre O2. O2 saturation 95%. No acute respiratory distress. (2) Cardiopulmonary arrest Current Visit: Yes Status: Acute Plan to address problem: S/P Resucitation to ROSC. (3) Atrial fibrillation and flutter Current Visit: Yes Status: Acute Plan to address problem: Management as per cardiology. Patient is on Eliquis. (4) Acute metabolic encephalopathy Current Visit: Yes Status: Acute Plan to address problem: Management as per primary care. (5) Acute kidney injury Current Visit: Yes Status: Acute Plan to address problem: Management as per nephrology. (6) DVT (deep venous thrombosis) Current Visit: Yes Status: Acute Qualifiers: Affected thrombotic vein of extremity: peroneal Plan to address problem: Patient is on Eliquis. Management as per vascular surgery. (7) Obesity hypoventilation syndrome Current Visit: Yes Status: Acute Plan to address problem: Recommend sleep study as out patient. Dietary consultion for weight reduction diet. Recommend BIPAP during night time PRN for day time sleepiness. (8) Pneumothorax, right Current Visit: Yes Status: Acute Plan to address problem: S/P chest tube placement and expansion of right lung. Subjective Date of service: 12/19/21 Principal diagnosis: AHRF; Cardiac arrest; R. pneumothorax; pneumonia; AMS; DVT's; SIERRA; Obesity Interval history: 66 YO Female with Obesity presents to ED for evaluation. Patient is intubated and on ventilatory support . Patient was attending [facility] services when the patient collapsed and lost consciousness. Witnesses began CPR. EMS was notified and upon arrival the patient was found to be in distress without perfusing cardiac rhythm. Patient initiated on ACLS protocol and subsequently intubated in the field and subsequent transported to [facility] for further care and evaluation of the aforementioned symptoms. The patient regained spontaneous circulation during transport. Patient seen and evaluated upon arrival and found to have acute hypoxemic respiratory failure, septic shock suspected secondary to aspiration pneumonia, metabolic acidosis, toxic metabolic encephalopathy, shock liver, and cardiac arrest with return of perfusing cardiac rhythm after initiation of ACLS protocol. Patient initiated on sepsis protocol as well as pneumonia protocol. Patient admitted to ICU. No reports of fever, chills, chest pain, palpitation, productive cough, skin rash, recent contact, known exposure to COVID-19. Patient has history of diabetes and hypertension. According to the chart review, patient has no history of smoking, alcohol or drug abuse. Patient eventually extubated. Patient transfered to Telemetry. Patient awake on 2 litre O2. O2 saturation 95%. No complaint of chest pain, shortness of breath or cough. Patient Obese , No acute respiratory distress. Patient afebrile. No leukocytosis. Blood pressure 135/87, pulse 125, Respirations 16. Chest xray done 11/18/21 reported Improving interstitial edema. Bilateral duplex study of legs 11/21/21 reported Acute occlusive thrombus is now visualized within the right peroneal veins. There is propagation of the left calf DVT into the popliteal vein on today's exam (near occlusive). CTA of chest:12/01/21 reported The exam is limited secondary to respiratory motion artifact. Low lung volumes. No central pulmonary thromboembolus is identified. The thoracic aorta is grossly unremarkable without aneurysm or dissection. Mild bibasilar atelectasis are present. Incidentally there are multiple healing anterior rib fractures involving the first, second, third, fourth, fifth, sixth and seventh ribs bilaterally. There is a nondisplaced fracture involving the left eighth rib. Chest xray 12/12/21 reported Pleuroparenchymal opacity in the left lower hemithorax is probably unchanged. No new abnormality. No pneumothorax. Patient presently on famotidine. Eliquis. DVT Management as per vascular surgery. Objective Vital Signs - 12hr 12/19/21 12/19/21 12/19/21 04:54 07:00 08:10 Temperature 98.7 F 98.8 F Pulse Rate 95 H 96 H 71 Pulse Rate [ Apical] Respiratory 20 18 Rate Blood Pressure 145/71 140/86 O2 Sat by Pulse 97 99 Oximetry 12/19/21 12/19/21 10:00 11:51 Temperature Pulse Rate Pulse Rate [ 96 H Apical] Respiratory 18 Rate Blood Pressure O2 Sat by Pulse 99 97 Oximetry Constitutional: no acute distress, alert, other (elderly obese female with mildly increased respiratory effort at rest ) Eyes: non-icteric ENT: oropharynx moist Neck: supple, no lymphadenopathy, no JVD, other (large circumference) Effort: mildly labored Ascultation: Bilateral: diminished breath sounds, rhonchi (bases) Percussion: Bilateral: not dull Cardiovascular: regular rate and rhythm, other (no R/M) Gastrointestinal: normoactive bowel sounds, soft, non-tender, other (obese) Integumentary: normal, other (Left flank ecchymosis with induration) Extremities: no cyanosis, pulses normal, no ischemia or petechiae, edema (2+) Neurologic: normal mental status, non-focal exam (grossly), pupils equal and round, motor strength normal and (weak) Psychiatric: mood appropriate, affect normal CBC and BMP: 12/20/21 05:22 12/20/21 05:22 ABG, PT/INR, D-dimer: ABG ABG pH 7.333 pH Units (7.350-7.450) L 12/12/21 14:10 ABG pCO2 50.1 mm Hg 12/12/21 14:10 ABG pO2 57.0 mm Hg (80.0-90.0) L 12/12/21 14:10 ABG O2 Saturation 88.0 % (95.0-99.0) L 12/12/21 14:10 PT/INR, D-dimer PT 16.8 Sec. (12.2-14.9) H 12/16/21 21:05 INR 1.22 (0.87-1.13) H 12/16/21 21:05 D-Dimer > 19725 ng/mlDDU (0-234) H 10/30/21 Unknown Abnormal lab findings: Abnormal Labs 10/29/21 10/29/21 10/29/21 15:10 15:10 15:10 WBC 27.8 H RBC Hgb Hct MCH 27 L RDW Plt Count Lymph % (Auto) Randall % (Auto) Lymph # (Auto) Randall # (Auto) Seg Neutrophils % Seg Neuts % (Manual) 78.0 H Lymphocytes % (Manual) 10.0 L Monocytes % (Manual) Basophils % (Manual) Nucleated RBC % Seg Neutrophils # Seg Neutrophils # Man 21.7 H Lymphocytes # (Manual) Monocytes # (Manual) 1.4 H Eosinophils # (Manual) Basophils # (Manual) PT INR APTT D-Dimer Heparin Anti-Xa Level ABG pH ABG pO2 ABG HCO3 ABG O2 Saturation ABG Base Excess ABG Hemoglobin Oxyhemoglobin Sodium Potassium Chloride Carbon Dioxide BUN Creatinine Glucose POC Glucose Hemoglobin A1c Lactic Acid 6.80 H* Calcium Phosphorus Magnesium Ferritin AST ALT Alkaline Phosphatase Lactate Dehydrogenase Troponin T 0.089 H C-Reactive Protein Total Protein Albumin LDL Cholesterol Direct Urine Creatinine Urine Total Protein Salicylates Acetaminophen Crossmatch 10/29/21 10/29/21 10/29/21 15:10 15:10 15:10 WBC RBC Hgb Hct MCH RDW Plt Count Lymph % (Auto) Randall % (Auto) Lymph # (Auto) Randall # (Auto) Seg Neutrophils % Seg Neuts % (Manual) Lymphocytes % (Manual) Monocytes % (Manual) Basophils % (Manual) Nucleated RBC % Seg Neutrophils # Seg Neutrophils # Man Lymphocytes # (Manual) Monocytes # (Manual) Eosinophils # (Manual) Basophils # (Manual) PT INR APTT D-Dimer Heparin Anti-Xa Level ABG pH ABG pO2 ABG HCO3 ABG O2 Saturation ABG Base Excess ABG Hemoglobin Oxyhemoglobin Sodium 136 L Potassium 2.8 L* Chloride 93.4 L Carbon Dioxide 20 L BUN Creatinine Glucose 330 H POC Glucose Hemoglobin A1c Lactic Acid Calcium Phosphorus Magnesium Ferritin AST 1013 H ALT 1289 H Alkaline Phosphatase 246 H Lactate Dehydrogenase Troponin T C-Reactive Protein Total Protein Albumin LDL Cholesterol Direct Urine Creatinine Urine Total Protein Salicylates < 0.3 L Acetaminophen 5.0 L Crossmatch 10/29/21 10/29/21 10/29/21 15:11 16:01 19:29 WBC RBC Hgb Hct MCH RDW Plt Count Lymph % (Auto) Randall % (Auto) Lymph # (Auto) Randall # (Auto) Seg Neutrophils % Seg Neuts % (Manual) Lymphocytes % (Manual) Monocytes % (Manual) Basophils % (Manual) Nucleated RBC % Seg Neutrophils # Seg Neutrophils # Man Lymphocytes # (Manual) Monocytes # (Manual) Eosinophils # (Manual) Basophils # (Manual) PT INR APTT D-Dimer Heparin Anti-Xa Level ABG pH 7.307 L ABG pO2 64.1 L ABG HCO3 ABG O2 Saturation 90.8 L ABG Base Excess -2.9 L ABG Hemoglobin Oxyhemoglobin 89.3 L Sodium Potassium Chloride Carbon Dioxide BUN Creatinine Glucose POC Glucose Hemoglobin A1c Lactic Acid 2.60 H* Calcium Phosphorus Magnesium 2.90 H Ferritin AST ALT Alkaline Phosphatase Lactate Dehydrogenase Troponin T C-Reactive Protein Total Protein Albumin LDL Cholesterol Direct Urine Creatinine Urine Total Protein Salicylates Acetaminophen Crossmatch 10/29/21 10/29/21 10/30/21 19:40 22:34 04:30 WBC 16.2 H RBC Hgb Hct MCH 26 L RDW 15.5 H Plt Count Lymph % (Auto) 6.2 L Randall % (Auto) Lymph # (Auto) 1.0 L Randall # (Auto) 0.9 H Seg Neutrophils % 88.1 H Seg Neuts % (Manual) Lymphocytes % (Manual) Monocytes % (Manual) Basophils % (Manual) Nucleated RBC % Seg Neutrophils # 14.2 H Seg Neutrophils # Man Lymphocytes # (Manual) Monocytes # (Manual) Eosinophils # (Manual) Basophils # (Manual) PT INR APTT D-Dimer Heparin Anti-Xa Level ABG pH ABG pO2 ABG HCO3 ABG O2 Saturation ABG Base Excess ABG Hemoglobin Oxyhemoglobin Sodium Potassium Chloride Carbon Dioxide BUN Creatinine Glucose POC Glucose Hemoglobin A1c Lactic Acid Calcium Phosphorus Magnesium Ferritin AST ALT Alkaline Phosphatase Lactate Dehydrogenase Troponin T 1.950 H* D 1.150 H* D C-Reactive Protein Total Protein Albumin LDL Cholesterol Direct 43 L Urine Creatinine Urine Total Protein Salicylates Acetaminophen Crossmatch 10/30/21 10/30/21 10/30/21 04:30 04:35 05:45 WBC RBC Hgb Hct MCH RDW Plt Count Lymph % (Auto) Randall % (Auto) Lymph # (Auto) Randall # (Auto) Seg Neutrophils % Seg Neuts % (Manual) Lymphocytes % (Manual) Monocytes % (Manual) Basophils % (Manual) Nucleated RBC % Seg Neutrophils # Seg Neutrophils # Man Lymphocytes # (Manual) Monocytes # (Manual) Eosinophils # (Manual) Basophils # (Manual) PT INR APTT D-Dimer Heparin Anti-Xa Level ABG pH ABG pO2 69.5 L ABG HCO3 ABG O2 Saturation ABG Base Excess -2.7 L ABG Hemoglobin Oxyhemoglobin 94.7 L Sodium Potassium Chloride Carbon Dioxide 21 L BUN Creatinine Glucose 159 H POC Glucose 151 H Hemoglobin A1c Lactic Acid Calcium 7.9 L D Phosphorus Magnesium Ferritin AST 461 H ALT 686 H Alkaline Phosphatase 130 H Lactate Dehydrogenase Troponin T C-Reactive Protein Total Protein 5.6 L D Albumin 3.2 L LDL Cholesterol Direct Urine Creatinine Urine Total Protein Salicylates Acetaminophen Crossmatch 10/30/21 10/30/21 10/30/21 11:24 15:59 16:30 WBC RBC Hgb Hct MCH RDW Plt Count Lymph % (Auto) Randall % (Auto) Lymph # (Auto) Randall # (Auto) Seg Neutrophils % Seg Neuts % (Manual) Lymphocytes % (Manual) Monocytes % (Manual) Basophils % (Manual) Nucleated RBC % Seg Neutrophils # Seg Neutrophils # Man Lymphocytes # (Manual) Monocytes # (Manual) Eosinophils # (Manual) Basophils # (Manual) PT 17.2 H INR 1.27 H APTT 44.4 H D-Dimer Heparin Anti-Xa Level ABG pH ABG pO2 ABG HCO3 ABG O2 Saturation ABG Base Excess ABG Hemoglobin Oxyhemoglobin Sodium Potassium Chloride Carbon Dioxide BUN Creatinine Glucose POC Glucose 153 H 109 H Hemoglobin A1c Lactic Acid Calcium Phosphorus Magnesium Ferritin AST ALT Alkaline Phosphatase Lactate Dehydrogenase Troponin T C-Reactive Protein Total Protein Albumin LDL Cholesterol Direct Urine Creatinine Urine Total Protein Salicylates Acetaminophen Crossmatch 10/30/21 10/30/21 10/30/21 23:00 Unknown Unknown WBC RBC Hgb Hct MCH RDW Plt Count Lymph % (Auto) Randall % (Auto) Lymph # (Auto) Randall # (Auto) Seg Neutrophils % Seg Neuts % (Manual) Lymphocytes % (Manual) Monocytes % (Manual) Basophils % (Manual) Nucleated RBC % Seg Neutrophils # Seg Neutrophils # Man Lymphocytes # (Manual) Monocytes # (Manual) Eosinophils # (Manual) Basophils # (Manual) PT INR APTT D-Dimer > 55965 H Heparin Anti-Xa Level 0.82 H ABG pH ABG pO2 ABG HCO3 ABG O2 Saturation ABG Base Excess ABG Hemoglobin Oxyhemoglobin Sodium Potassium Chloride Carbon Dioxide BUN Creatinine Glucose POC Glucose Hemoglobin A1c Lactic Acid Calcium Phosphorus Magnesium Ferritin 208.4 H AST ALT Alkaline Phosphatase Lactate Dehydrogenase Troponin T C-Reactive Protein Total Protein Albumin LDL Cholesterol Direct Urine Creatinine Urine Total Protein Salicylates Acetaminophen Crossmatch 10/30/21 10/31/21 10/31/21 Unknown 04:30 04:30 WBC 14.4 H RBC Hgb Hct MCH 26 L RDW Plt Count Lymph % (Auto) Randall % (Auto) Lymph # (Auto) Randall # (Auto) Seg Neutrophils % Seg Neuts % (Manual) Lymphocytes % (Manual) Monocytes % (Manual) Basophils % (Manual) Nucleated RBC % Seg Neutrophils # Seg Neutrophils # Man Lymphocytes # (Manual) Monocytes # (Manual) Eosinophils # (Manual) Basophils # (Manual) PT INR APTT D-Dimer Heparin Anti-Xa Level ABG pH ABG pO2 ABG HCO3 ABG O2 Saturation ABG Base Excess ABG Hemoglobin Oxyhemoglobin Sodium Potassium 3.5 L Chloride 107.5 H Carbon Dioxide 20 L BUN 28 H Creatinine 1.7 H Glucose 113 H POC Glucose Hemoglobin A1c Lactic Acid Calcium 7.9 L Phosphorus Magnesium Ferritin AST ALT Alkaline Phosphatase Lactate Dehydrogenase 469 H Troponin T C-Reactive Protein 13.40 H Total Protein Albumin LDL Cholesterol Direct Urine Creatinine Urine Total Protein Salicylates Acetaminophen Crossmatch 10/31/21 10/31/21 10/31/21 04:30 05:11 15:30 WBC RBC Hgb Hct MCH RDW Plt Count Lymph % (Auto) Randall % (Auto) Lymph # (Auto) Randall # (Auto) Seg Neutrophils % Seg Neuts % (Manual) Lymphocytes % (Manual) Monocytes % (Manual) Basophils % (Manual) Nucleated RBC % Seg Neutrophils # Seg Neutrophils # Man Lymphocytes # (Manual) Monocytes # (Manual) Eosinophils # (Manual) Basophils # (Manual) PT INR APTT D-Dimer Heparin Anti-Xa Level ABG pH 7.222 L ABG pO2 61.5 L ABG HCO3 ABG O2 Saturation 86.2 L ABG Base Excess -6.3 L ABG Hemoglobin 11.2 L Oxyhemoglobin 84.5 L Sodium Potassium Chloride Carbon Dioxide BUN Creatinine Glucose POC Glucose 106 H Hemoglobin A1c 6.7 H Lactic Acid Calcium Phosphorus Magnesium Ferritin AST ALT Alkaline Phosphatase Lactate Dehydrogenase Troponin T C-Reactive Protein Total Protein Albumin LDL Cholesterol Direct Urine Creatinine Urine Total Protein Salicylates Acetaminophen Crossmatch 10/31/21 10/31/21 10/31/21 16:07 16:35 17:45 WBC RBC Hgb Hct MCH RDW Plt Count Lymph % (Auto) Randall % (Auto) Lymph # (Auto) Randall # (Auto) Seg Neutrophils % Seg Neuts % (Manual) Lymphocytes % (Manual) Monocytes % (Manual) Basophils % (Manual) Nucleated RBC % Seg Neutrophils # Seg Neutrophils # Man Lymphocytes # (Manual) Monocytes # (Manual) Eosinophils # (Manual) Basophils # (Manual) PT INR APTT D-Dimer Heparin Anti-Xa Level ABG pH 7.267 L ABG pO2 58.3 L ABG HCO3 ABG O2 Saturation 88.3 L ABG Base Excess -5.9 L ABG Hemoglobin 10.1 L Oxyhemoglobin 86.5 L Sodium Potassium Chloride Carbon Dioxide BUN Creatinine Glucose POC Glucose 115 H Hemoglobin A1c Lactic Acid Calcium Phosphorus Magnesium Ferritin AST ALT Alkaline Phosphatase Lactate Dehydrogenase Troponin T C-Reactive Protein Total Protein Albumin LDL Cholesterol Direct Urine Creatinine 383.6 H Urine Total Protein Salicylates Acetaminophen Crossmatch 11/01/21 11/01/21 11/01/21 00:06 05:08 06:00 WBC 12.6 H RBC 3.43 L Hgb 8.9 L Hct 28.7 L MCH 26 L RDW 15.7 H Plt Count 130 L Lymph % (Auto) Randall % (Auto) Lymph # (Auto) Randall # (Auto) Seg Neutrophils % Seg Neuts % (Manual) Lymphocytes % (Manual) Monocytes % (Manual) Basophils % (Manual) Nucleated RBC % Seg Neutrophils # Seg Neutrophils # Man Lymphocytes # (Manual) Monocytes # (Manual) Eosinophils # (Manual) Basophils # (Manual) PT INR APTT D-Dimer Heparin Anti-Xa Level ABG pH ABG pO2 ABG HCO3 ABG O2 Saturation ABG Base Excess ABG Hemoglobin Oxyhemoglobin Sodium Potassium Chloride Carbon Dioxide BUN Creatinine Glucose POC Glucose 114 H 120 H Hemoglobin A1c Lactic Acid Calcium Phosphorus Magnesium Ferritin AST ALT Alkaline Phosphatase Lactate Dehydrogenase Troponin T C-Reactive Protein Total Protein Albumin LDL Cholesterol Direct Urine Creatinine Urine Total Protein Salicylates Acetaminophen Crossmatch 11/01/21 11/01/21 11/01/21 06:00 11:43 14:00 WBC RBC Hgb Hct MCH RDW Plt Count Lymph % (Auto) Randall % (Auto) Lymph # (Auto) Randall # (Auto) Seg Neutrophils % Seg Neuts % (Manual) Lymphocytes % (Manual) Monocytes % (Manual) Basophils % (Manual) Nucleated RBC % Seg Neutrophils # Seg Neutrophils # Man Lymphocytes # (Manual) Monocytes # (Manual) Eosinophils # (Manual) Basophils # (Manual) PT INR APTT D-Dimer Heparin Anti-Xa Level ABG pH 7.349 L ABG pO2 75.6 L ABG HCO3 ABG O2 Saturation ABG Base Excess -3.9 L ABG Hemoglobin 9.8 L Oxyhemoglobin 93.5 L Sodium Potassium Chloride 114.1 H Carbon Dioxide 20 L BUN 33 H Creatinine Glucose 131 H POC Glucose 151 H Hemoglobin A1c Lactic Acid Calcium 7.7 L Phosphorus Magnesium Ferritin AST 79 H ALT 259 H Alkaline Phosphatase Lactate Dehydrogenase Troponin T C-Reactive Protein Total Protein 5.5 L Albumin 2.7 L LDL Cholesterol Direct Urine Creatinine Urine Total Protein Salicylates Acetaminophen Crossmatch 11/01/21 11/01/21 11/02/21 16:45 22:55 05:12 WBC RBC Hgb Hct MCH RDW Plt Count Lymph % (Auto) Randall % (Auto) Lymph # (Auto) Randall # (Auto) Seg Neutrophils % Seg Neuts % (Manual) Lymphocytes % (Manual) Monocytes % (Manual) Basophils % (Manual) Nucleated RBC % Seg Neutrophils # Seg Neutrophils # Man Lymphocytes # (Manual) Monocytes # (Manual) Eosinophils # (Manual) Basophils # (Manual) PT INR APTT D-Dimer Heparin Anti-Xa Level ABG pH ABG pO2 ABG HCO3 ABG O2 Saturation ABG Base Excess ABG Hemoglobin Oxyhemoglobin Sodium Potassium Chloride Carbon Dioxide BUN Creatinine Glucose POC Glucose 119 H 129 H 140 H Hemoglobin A1c Lactic Acid Calcium Phosphorus Magnesium Ferritin AST ALT Alkaline Phosphatase Lactate Dehydrogenase Troponin T C-Reactive Protein Total Protein Albumin LDL Cholesterol Direct Urine Creatinine Urine Total Protein Salicylates Acetaminophen Crossmatch 11/02/21 11/02/21 11/02/21 05:35 05:35 09:35 WBC 13.5 H RBC 3.60 L Hgb 9.7 L Hct MCH 27 L RDW 15.7 H Plt Count Lymph % (Auto) Randall % (Auto) Lymph # (Auto) Randall # (Auto) Seg Neutrophils % Seg Neuts % (Manual) Lymphocytes % (Manual) Monocytes % (Manual) Basophils % (Manual) Nucleated RBC % Seg Neutrophils # Seg Neutrophils # Man Lymphocytes # (Manual) Monocytes # (Manual) Eosinophils # (Manual) Basophils # (Manual) PT INR APTT D-Dimer Heparin Anti-Xa Level ABG pH 7.208 L ABG pO2 75.9 L ABG HCO3 ABG O2 Saturation 93.6 L ABG Base Excess -4.3 L ABG Hemoglobin 9.1 L Oxyhemoglobin 91.6 L Sodium Potassium 5.2 H D Chloride 112.6 H Carbon Dioxide BUN 32 H Creatinine Glucose 152 H POC Glucose Hemoglobin A1c Lactic Acid Calcium 8.2 L Phosphorus Magnesium 2.70 H Ferritin AST ALT Alkaline Phosphatase Lactate Dehydrogenase Troponin T C-Reactive Protein Total Protein Albumin LDL Cholesterol Direct Urine Creatinine Urine Total Protein Salicylates Acetaminophen Crossmatch 11/02/21 11/02/21 11/02/21 11:44 17:13 23:43 WBC RBC Hgb Hct MCH RDW Plt Count Lymph % (Auto) Randall % (Auto) Lymph # (Auto) Randall # (Auto) Seg Neutrophils % Seg Neuts % (Manual) Lymphocytes % (Manual) Monocytes % (Manual) Basophils % (Manual) Nucleated RBC % Seg Neutrophils # Seg Neutrophils # Man Lymphocytes # (Manual) Monocytes # (Manual) Eosinophils # (Manual) Basophils # (Manual) PT INR APTT D-Dimer Heparin Anti-Xa Level ABG pH ABG pO2 ABG HCO3 ABG O2 Saturation ABG Base Excess ABG Hemoglobin Oxyhemoglobin Sodium Potassium Chloride Carbon Dioxide BUN Creatinine Glucose POC Glucose 173 H 148 H 137 H Hemoglobin A1c Lactic Acid Calcium Phosphorus Magnesium Ferritin AST ALT Alkaline Phosphatase Lactate Dehydrogenase Troponin T C-Reactive Protein Total Protein Albumin LDL Cholesterol Direct Urine Creatinine Urine Total Protein Salicylates Acetaminophen Crossmatch 11/03/21 11/03/21 11/03/21 04:59 06:00 06:00 WBC RBC 3.43 L Hgb 9.1 L Hct 29.0 L MCH 26 L RDW 16.4 H Plt Count Lymph % (Auto) Randall % (Auto) Lymph # (Auto) Randall # (Auto) Seg Neutrophils % Seg Neuts % (Manual) Lymphocytes % (Manual) Monocytes % (Manual) Basophils % (Manual) Nucleated RBC % Seg Neutrophils # Seg Neutrophils # Man Lymphocytes # (Manual) Monocytes # (Manual) Eosinophils # (Manual) Basophils # (Manual) PT INR APTT D-Dimer Heparin Anti-Xa Level 0.17 L ABG pH ABG pO2 ABG HCO3 ABG O2 Saturation ABG Base Excess ABG Hemoglobin Oxyhemoglobin Sodium Potassium Chloride Carbon Dioxide BUN Creatinine Glucose POC Glucose 167 H Hemoglobin A1c Lactic Acid Calcium Phosphorus Magnesium Ferritin AST ALT Alkaline Phosphatase Lactate Dehydrogenase Troponin T C-Reactive Protein Total Protein Albumin LDL Cholesterol Direct Urine Creatinine Urine Total Protein Salicylates Acetaminophen Crossmatch 11/03/21 11/03/21 11/03/21 06:00 09:20 11:58 WBC RBC Hgb Hct MCH RDW Plt Count Lymph % (Auto) Randall % (Auto) Lymph # (Auto) Randall # (Auto) Seg Neutrophils % Seg Neuts % (Manual) Lymphocytes % (Manual) Monocytes % (Manual) Basophils % (Manual) Nucleated RBC % Seg Neutrophils # Seg Neutrophils # Man Lymphocytes # (Manual) Monocytes # (Manual) Eosinophils # (Manual) Basophils # (Manual) PT INR APTT D-Dimer Heparin Anti-Xa Level ABG pH 7.274 L ABG pO2 75.6 L ABG HCO3 ABG O2 Saturation 94.9 L ABG Base Excess -2.5 L ABG Hemoglobin 9.3 L Oxyhemoglobin 92.9 L Sodium 149 H Potassium Chloride 117.5 H Carbon Dioxide BUN 32 H Creatinine Glucose 173 H POC Glucose 192 H Hemoglobin A1c Lactic Acid Calcium 8.1 L Phosphorus Magnesium Ferritin AST ALT Alkaline Phosphatase Lactate Dehydrogenase Troponin T C-Reactive Protein Total Protein Albumin LDL Cholesterol Direct Urine Creatinine Urine Total Protein Salicylates Acetaminophen Crossmatch 11/03/21 11/03/21 11/04/21 18:22 Unknown 00:09 WBC RBC Hgb Hct MCH RDW Plt Count Lymph % (Auto) Randall % (Auto) Lymph # (Auto) Randall # (Auto) Seg Neutrophils % Seg Neuts % (Manual) Lymphocytes % (Manual) Monocytes % (Manual) Basophils % (Manual) Nucleated RBC % Seg Neutrophils # Seg Neutrophils # Man Lymphocytes # (Manual) Monocytes # (Manual) Eosinophils # (Manual) Basophils # (Manual) PT INR APTT D-Dimer Heparin Anti-Xa Level 0.29 L ABG pH ABG pO2 ABG HCO3 ABG O2 Saturation ABG Base Excess ABG Hemoglobin Oxyhemoglobin Sodium Potassium Chloride Carbon Dioxide BUN Creatinine Glucose POC Glucose 178 H 221 H Hemoglobin A1c Lactic Acid Calcium Phosphorus Magnesium Ferritin AST ALT Alkaline Phosphatase Lactate Dehydrogenase Troponin T C-Reactive Protein Total Protein Albumin LDL Cholesterol Direct Urine Creatinine Urine Total Protein Salicylates Acetaminophen Crossmatch 11/04/21 11/04/21 11/04/21 05:09 09:40 09:40 WBC 16.8 H RBC Hgb Hct MCH 27 L RDW 16.5 H Plt Count Lymph % (Auto) Randall % (Auto) Lymph # (Auto) Randall # (Auto) Seg Neutrophils % Seg Neuts % (Manual) Lymphocytes % (Manual) Monocytes % (Manual) Basophils % (Manual) Nucleated RBC % Seg Neutrophils # Seg Neutrophils # Man Lymphocytes # (Manual) Monocytes # (Manual) Eosinophils # (Manual) Basophils # (Manual) PT INR APTT D-Dimer Heparin Anti-Xa Level ABG pH ABG pO2 ABG HCO3 ABG O2 Saturation ABG Base Excess ABG Hemoglobin Oxyhemoglobin Sodium Potassium 5.9 H Chloride 108.5 H Carbon Dioxide BUN 54 H Creatinine 1.8 H Glucose 198 H POC Glucose 182 H Hemoglobin A1c Lactic Acid Calcium Phosphorus Magnesium 3.00 H Ferritin AST ALT Alkaline Phosphatase Lactate Dehydrogenase Troponin T C-Reactive Protein Total Protein Albumin LDL Cholesterol Direct Urine Creatinine Urine Total Protein Salicylates Acetaminophen Crossmatch 11/04/21 11/04/21 11/04/21 12:13 13:34 14:05 WBC RBC Hgb Hct MCH RDW Plt Count Lymph % (Auto) Randall % (Auto) Lymph # (Auto) Randall # (Auto) Seg Neutrophils % Seg Neuts % (Manual) Lymphocytes % (Manual) Monocytes % (Manual) Basophils % (Manual) Nucleated RBC % Seg Neutrophils # Seg Neutrophils # Man Lymphocytes # (Manual) Monocytes # (Manual) Eosinophils # (Manual) Basophils # (Manual) PT INR APTT D-Dimer Heparin Anti-Xa Level ABG pH 7.223 L ABG pO2 71.3 L ABG HCO3 ABG O2 Saturation 92.8 L ABG Base Excess ABG Hemoglobin 8.2 L Oxyhemoglobin 91.0 L Sodium Potassium Chloride Carbon Dioxide BUN Creatinine Glucose POC Glucose 184 H Hemoglobin A1c Lactic Acid Calcium Phosphorus Magnesium Ferritin AST ALT Alkaline Phosphatase Lactate Dehydrogenase Troponin T C-Reactive Protein Total Protein Albumin LDL Cholesterol Direct Urine Creatinine 184.6 H Urine Total Protein Salicylates Acetaminophen Crossmatch 11/04/21 11/04/21 11/05/21 18:02 Unknown 00:07 WBC RBC Hgb Hct MCH RDW Plt Count Lymph % (Auto) Randall % (Auto) Lymph # (Auto) Randall # (Auto) Seg Neutrophils % Seg Neuts % (Manual) Lymphocytes % (Manual) Monocytes % (Manual) Basophils % (Manual) Nucleated RBC % Seg Neutrophils # Seg Neutrophils # Man Lymphocytes # (Manual) Monocytes # (Manual) Eosinophils # (Manual) Basophils # (Manual) PT INR APTT D-Dimer Heparin Anti-Xa Level ABG pH ABG pO2 ABG HCO3 ABG O2 Saturation ABG Base Excess ABG Hemoglobin Oxyhemoglobin Sodium Potassium Chloride Carbon Dioxide BUN Creatinine Glucose POC Glucose 262 H 259 H Hemoglobin A1c Lactic Acid Calcium Phosphorus Magnesium Ferritin AST ALT Alkaline Phosphatase Lactate Dehydrogenase Troponin T C-Reactive Protein Total Protein Albumin LDL Cholesterol Direct Urine Creatinine 190.9 H Urine Total Protein 172 H Salicylates Acetaminophen Crossmatch 11/05/21 11/05/21 11/05/21 04:20 04:20 05:30 WBC 17.9 H RBC 3.64 L Hgb 9.7 L Hct MCH 27 L RDW 16.4 H Plt Count Lymph % (Auto) Randall % (Auto) Lymph # (Auto) Randall # (Auto) Seg Neutrophils % Seg Neuts % (Manual) Lymphocytes % (Manual) Monocytes % (Manual) Basophils % (Manual) Nucleated RBC % Seg Neutrophils # Seg Neutrophils # Man Lymphocytes # (Manual) Monocytes # (Manual) Eosinophils # (Manual) Basophils # (Manual) PT INR APTT D-Dimer Heparin Anti-Xa Level ABG pH ABG pO2 ABG HCO3 ABG O2 Saturation ABG Base Excess ABG Hemoglobin Oxyhemoglobin Sodium Potassium 5.6 H Chloride 108.4 H Carbon Dioxide BUN 71 H Creatinine 1.9 H Glucose 270 H POC Glucose 283 H Hemoglobin A1c Lactic Acid Calcium Phosphorus Magnesium Ferritin AST ALT Alkaline Phosphatase Lactate Dehydrogenase Troponin T C-Reactive Protein Total Protein Albumin LDL Cholesterol Direct Urine Creatinine Urine Total Protein Salicylates Acetaminophen Crossmatch 11/05/21 11/05/21 11/05/21 10:05 12:10 15:29 WBC RBC Hgb Hct MCH RDW Plt Count Lymph % (Auto) Randall % (Auto) Lymph # (Auto) Randall # (Auto) Seg Neutrophils % Seg Neuts % (Manual) Lymphocytes % (Manual) Monocytes % (Manual) Basophils % (Manual) Nucleated RBC % Seg Neutrophils # Seg Neutrophils # Man Lymphocytes # (Manual) Monocytes # (Manual) Eosinophils # (Manual) Basophils # (Manual) PT INR APTT D-Dimer Heparin Anti-Xa Level ABG pH 7.248 L ABG pO2 73.7 L ABG HCO3 26.2 H ABG O2 Saturation 93.1 L ABG Base Excess ABG Hemoglobin 8.9 L Oxyhemoglobin 91.4 L Sodium Potassium Chloride Carbon Dioxide BUN Creatinine Glucose POC Glucose 225 H 199 H Hemoglobin A1c Lactic Acid Calcium Phosphorus Magnesium Ferritin AST ALT Alkaline Phosphatase Lactate Dehydrogenase Troponin T C-Reactive Protein Total Protein Albumin LDL Cholesterol Direct Urine Creatinine Urine Total Protein Salicylates Acetaminophen Crossmatch 11/05/21 11/05/21 11/05/21 15:51 17:32 17:40 WBC RBC Hgb Hct MCH RDW Plt Count Lymph % (Auto) Randall % (Auto) Lymph # (Auto) Randall # (Auto) Seg Neutrophils % Seg Neuts % (Manual) Lymphocytes % (Manual) Monocytes % (Manual) Basophils % (Manual) Nucleated RBC % Seg Neutrophils # Seg Neutrophils # Man Lymphocytes # (Manual) Monocytes # (Manual) Eosinophils # (Manual) Basophils # (Manual) PT INR APTT D-Dimer Heparin Anti-Xa Level ABG pH ABG pO2 ABG HCO3 ABG O2 Saturation ABG Base Excess ABG Hemoglobin Oxyhemoglobin Sodium Potassium 5.2 H Chloride 107.8 H Carbon Dioxide BUN 79 H Creatinine 1.9 H Glucose 204 H POC Glucose 278 H 197 H Hemoglobin A1c Lactic Acid Calcium Phosphorus Magnesium Ferritin AST ALT Alkaline Phosphatase Lactate Dehydrogenase Troponin T C-Reactive Protein Total Protein Albumin LDL Cholesterol Direct Urine Creatinine Urine Total Protein Salicylates Acetaminophen Crossmatch 11/05/21 11/05/21 11/05/21 21:25 22:22 23:43 WBC RBC Hgb Hct MCH RDW Plt Count Lymph % (Auto) Randall % (Auto) Lymph # (Auto) Randall # (Auto) Seg Neutrophils % Seg Neuts % (Manual) Lymphocytes % (Manual) Monocytes % (Manual) Basophils % (Manual) Nucleated RBC % Seg Neutrophils # Seg Neutrophils # Man Lymphocytes # (Manual) Monocytes # (Manual) Eosinophils # (Manual) Basophils # (Manual) PT INR APTT D-Dimer Heparin Anti-Xa Level ABG pH ABG pO2 ABG HCO3 ABG O2 Saturation ABG Base Excess ABG Hemoglobin Oxyhemoglobin Sodium Potassium 5.3 H Chloride 109.2 H Carbon Dioxide BUN 81 H Creatinine 2.0 H Glucose 195 H POC Glucose 180 H 203 H Hemoglobin A1c Lactic Acid Calcium Phosphorus Magnesium Ferritin AST ALT Alkaline Phosphatase Lactate Dehydrogenase Troponin T C-Reactive Protein Total Protein Albumin LDL Cholesterol Direct Urine Creatinine Urine Total Protein Salicylates Acetaminophen Crossmatch 11/05/21 11/06/21 11/06/21 Unknown 02:35 05:09 WBC RBC Hgb Hct MCH RDW Plt Count Lymph % (Auto) Randall % (Auto) Lymph # (Auto) Randall # (Auto) Seg Neutrophils % Seg Neuts % (Manual) Lymphocytes % (Manual) Monocytes % (Manual) Basophils % (Manual) Nucleated RBC % Seg Neutrophils # Seg Neutrophils # Man Lymphocytes # (Manual) Monocytes # (Manual) Eosinophils # (Manual) Basophils # (Manual) PT INR APTT D-Dimer Heparin Anti-Xa Level ABG pH ABG pO2 ABG HCO3 ABG O2 Saturation ABG Base Excess ABG Hemoglobin Oxyhemoglobin Sodium 146 H Potassium 6.0 H Chloride 108.1 H 107.1 H Carbon Dioxide 21 L BUN 80 H 84 H Creatinine 2.0 H 2.0 H Glucose 238 H 235 H POC Glucose 215 H Hemoglobin A1c Lactic Acid Calcium Phosphorus Magnesium 2.80 H Ferritin AST ALT 77 H Alkaline Phosphatase Lactate Dehydrogenase Troponin T C-Reactive Protein Total Protein Albumin 3.0 L LDL Cholesterol Direct Urine Creatinine Urine Total Protein Salicylates Acetaminophen Crossmatch 11/06/21 11/06/21 11/06/21 05:40 08:07 08:07 WBC RBC Hgb Hct MCH RDW Plt Count Lymph % (Auto) Randall % (Auto) Lymph # (Auto) Randall # (Auto) Seg Neutrophils % Seg Neuts % (Manual) Lymphocytes % (Manual) Monocytes % (Manual) Basophils % (Manual) Nucleated RBC % Seg Neutrophils # Seg Neutrophils # Man Lymphocytes # (Manual) Monocytes # (Manual) Eosinophils # (Manual) Basophils # (Manual) PT INR APTT D-Dimer Heparin Anti-Xa Level 1.24 H ABG pH 7.311 L ABG pO2 72.8 L ABG HCO3 29.7 H ABG O2 Saturation 94.1 L ABG Base Excess ABG Hemoglobin 11.4 L Oxyhemoglobin 92.3 L Sodium Potassium 5.2 H Chloride Carbon Dioxide BUN 85 H Creatinine 2.3 H Glucose 236 H POC Glucose Hemoglobin A1c Lactic Acid Calcium Phosphorus Magnesium Ferritin AST ALT Alkaline Phosphatase Lactate Dehydrogenase Troponin T C-Reactive Protein Total Protein Albumin LDL Cholesterol Direct Urine Creatinine Urine Total Protein Salicylates Acetaminophen Crossmatch 11/06/21 11/06/21 11/06/21 12:14 12:57 14:28 WBC RBC Hgb Hct MCH RDW Plt Count Lymph % (Auto) Randall % (Auto) Lymph # (Auto) Randall # (Auto) Seg Neutrophils % Seg Neuts % (Manual) Lymphocytes % (Manual) Monocytes % (Manual) Basophils % (Manual) Nucleated RBC % Seg Neutrophils # Seg Neutrophils # Man Lymphocytes # (Manual) Monocytes # (Manual) Eosinophils # (Manual) Basophils # (Manual) PT INR APTT D-Dimer Heparin Anti-Xa Level ABG pH 7.282 L ABG pO2 72.6 L ABG HCO3 30.8 H ABG O2 Saturation 93.7 L ABG Base Excess 3.2 H ABG Hemoglobin 8.6 L Oxyhemoglobin 91.8 L Sodium Potassium Chloride Carbon Dioxide BUN 91 H Creatinine 2.6 H Glucose 259 H POC Glucose 225 H Hemoglobin A1c Lactic Acid Calcium Phosphorus Magnesium Ferritin AST ALT Alkaline Phosphatase Lactate Dehydrogenase Troponin T C-Reactive Protein Total Protein Albumin LDL Cholesterol Direct Urine Creatinine Urine Total Protein Salicylates Acetaminophen Crossmatch 11/06/21 11/06/21 11/06/21 17:28 19:20 21:30 WBC RBC Hgb Hct MCH RDW Plt Count Lymph % (Auto) Randall % (Auto) Lymph # (Auto) Randall # (Auto) Seg Neutrophils % Seg Neuts % (Manual) Lymphocytes % (Manual) Monocytes % (Manual) Basophils % (Manual) Nucleated RBC % Seg Neutrophils # Seg Neutrophils # Man Lymphocytes # (Manual) Monocytes # (Manual) Eosinophils # (Manual) Basophils # (Manual) PT INR APTT D-Dimer Heparin Anti-Xa Level 0.73 H ABG pH ABG pO2 ABG HCO3 ABG O2 Saturation ABG Base Excess ABG Hemoglobin Oxyhemoglobin Sodium Potassium Chloride Carbon Dioxide BUN 95 H Creatinine 2.9 H Glucose 233 H POC Glucose 206 H Hemoglobin A1c Lactic Acid Calcium Phosphorus Magnesium Ferritin AST ALT Alkaline Phosphatase Lactate Dehydrogenase Troponin T C-Reactive Protein Total Protein Albumin LDL Cholesterol Direct Urine Creatinine Urine Total Protein Salicylates Acetaminophen Crossmatch 11/06/21 11/07/21 11/07/21 22:56 05:06 06:30 WBC RBC Hgb Hct MCH RDW Plt Count Lymph % (Auto) Randall % (Auto) Lymph # (Auto) Randall # (Auto) Seg Neutrophils % Seg Neuts % (Manual) Lymphocytes % (Manual) Monocytes % (Manual) Basophils % (Manual) Nucleated RBC % Seg Neutrophils # Seg Neutrophils # Man Lymphocytes # (Manual) Monocytes # (Manual) Eosinophils # (Manual) Basophils # (Manual) PT INR APTT D-Dimer Heparin Anti-Xa Level ABG pH ABG pO2 ABG HCO3 ABG O2 Saturation ABG Base Excess ABG Hemoglobin Oxyhemoglobin Sodium 146 H Potassium Chloride Carbon Dioxide BUN 98 H Creatinine 2.8 H Glucose 202 H POC Glucose 215 H 172 H Hemoglobin A1c Lactic Acid Calcium Phosphorus 4.90 H D Magnesium 2.90 H Ferritin AST ALT Alkaline Phosphatase Lactate Dehydrogenase Troponin T C-Reactive Protein Total Protein Albumin LDL Cholesterol Direct Urine Creatinine Urine Total Protein Salicylates Acetaminophen Crossmatch 11/07/21 11/07/21 11/07/21 06:30 11:26 12:15 WBC 16.0 H RBC 3.06 L Hgb 8.2 L Hct 26.1 L MCH 27 L RDW 16.2 H Plt Count Lymph % (Auto) Randall % (Auto) Lymph # (Auto) Randall # (Auto) Seg Neutrophils % Seg Neuts % (Manual) 77.0 H Lymphocytes % (Manual) 11.0 L Monocytes % (Manual) Basophils % (Manual) Nucleated RBC % 2.0 H Seg Neutrophils # Seg Neutrophils # Man 12.3 H Lymphocytes # (Manual) Monocytes # (Manual) Eosinophils # (Manual) Basophils # (Manual) PT INR APTT D-Dimer Heparin Anti-Xa Level ABG pH 7.298 L ABG pO2 73.0 L ABG HCO3 33.3 H ABG O2 Saturation 94.4 L ABG Base Excess 5.8 H ABG Hemoglobin 8.2 L Oxyhemoglobin 92.7 L Sodium Potassium Chloride Carbon Dioxide BUN Creatinine Glucose POC Glucose 179 H Hemoglobin A1c Lactic Acid Calcium Phosphorus Magnesium Ferritin AST ALT Alkaline Phosphatase Lactate Dehydrogenase Troponin T C-Reactive Protein Total Protein Albumin LDL Cholesterol Direct Urine Creatinine Urine Total Protein Salicylates Acetaminophen Crossmatch 11/07/21 11/07/21 11/07/21 17:57 22:16 23:49 WBC RBC Hgb Hct MCH RDW Plt Count Lymph % (Auto) Randall % (Auto) Lymph # (Auto) Randall # (Auto) Seg Neutrophils % Seg Neuts % (Manual) Lymphocytes % (Manual) Monocytes % (Manual) Basophils % (Manual) Nucleated RBC % Seg Neutrophils # Seg Neutrophils # Man Lymphocytes # (Manual) Monocytes # (Manual) Eosinophils # (Manual) Basophils # (Manual) PT INR APTT D-Dimer Heparin Anti-Xa Level ABG pH ABG pO2 ABG HCO3 ABG O2 Saturation ABG Base Excess ABG Hemoglobin Oxyhemoglobin Sodium Potassium Chloride Carbon Dioxide BUN Creatinine Glucose POC Glucose 166 H 223 H 190 H Hemoglobin A1c Lactic Acid Calcium Phosphorus Magnesium Ferritin AST ALT Alkaline Phosphatase Lactate Dehydrogenase Troponin T C-Reactive Protein Total Protein Albumin LDL Cholesterol Direct Urine Creatinine Urine Total Protein Salicylates Acetaminophen Crossmatch 11/08/21 11/08/21 11/08/21 04:20 04:20 06:16 WBC 22.1 H RBC 3.01 L Hgb 8.1 L Hct 25.6 L MCH 27 L RDW 15.4 H Plt Count Lymph % (Auto) Randall % (Auto) Lymph # (Auto) Randall # (Auto) Seg Neutrophils % Seg Neuts % (Manual) Lymphocytes % (Manual) Monocytes % (Manual) Basophils % (Manual) Nucleated RBC % Seg Neutrophils # Seg Neutrophils # Man Lymphocytes # (Manual) Monocytes # (Manual) Eosinophils # (Manual) Basophils # (Manual) PT INR APTT D-Dimer Heparin Anti-Xa Level ABG pH ABG pO2 ABG HCO3 ABG O2 Saturation ABG Base Excess ABG Hemoglobin Oxyhemoglobin Sodium 151 H Potassium 3.1 L D Chloride 107.3 H Carbon Dioxide 31 H BUN 82 H Creatinine 1.8 H Glucose 232 H POC Glucose 198 H Hemoglobin A1c Lactic Acid Calcium 8.1 L Phosphorus Magnesium Ferritin AST ALT Alkaline Phosphatase Lactate Dehydrogenase Troponin T C-Reactive Protein Total Protein Albumin LDL Cholesterol Direct Urine Creatinine Urine Total Protein Salicylates Acetaminophen Crossmatch 11/08/21 11/08/21 11/08/21 11:38 12:00 18:29 WBC RBC Hgb Hct MCH RDW Plt Count Lymph % (Auto) Randall % (Auto) Lymph # (Auto) Randall # (Auto) Seg Neutrophils % Seg Neuts % (Manual) Lymphocytes % (Manual) Monocytes % (Manual) Basophils % (Manual) Nucleated RBC % Seg Neutrophils # Seg Neutrophils # Man Lymphocytes # (Manual) Monocytes # (Manual) Eosinophils # (Manual) Basophils # (Manual) PT INR APTT D-Dimer Heparin Anti-Xa Level ABG pH ABG pO2 ABG HCO3 ABG O2 Saturation ABG Base Excess ABG Hemoglobin Oxyhemoglobin Sodium Potassium 3.0 L Chloride Carbon Dioxide BUN Creatinine Glucose POC Glucose 190 H 211 H Hemoglobin A1c Lactic Acid Calcium Phosphorus Magnesium Ferritin AST ALT Alkaline Phosphatase Lactate Dehydrogenase Troponin T C-Reactive Protein Total Protein Albumin LDL Cholesterol Direct Urine Creatinine Urine Total Protein Salicylates Acetaminophen Crossmatch 11/08/21 11/08/21 11/09/21 21:34 21:40 00:36 WBC RBC Hgb Hct MCH RDW Plt Count Lymph % (Auto) Randall % (Auto) Lymph # (Auto) Randall # (Auto) Seg Neutrophils % Seg Neuts % (Manual) Lymphocytes % (Manual) Monocytes % (Manual) Basophils % (Manual) Nucleated RBC % Seg Neutrophils # Seg Neutrophils # Man Lymphocytes # (Manual) Monocytes # (Manual) Eosinophils # (Manual) Basophils # (Manual) PT INR APTT D-Dimer Heparin Anti-Xa Level ABG pH ABG pO2 ABG HCO3 ABG O2 Saturation ABG Base Excess ABG Hemoglobin Oxyhemoglobin Sodium 148 H Potassium 2.8 L* Chloride Carbon Dioxide 31 H BUN 68 H Creatinine 1.5 H Glucose 191 H POC Glucose 194 H 140 H Hemoglobin A1c Lactic Acid Calcium 8.2 L Phosphorus Magnesium Ferritin AST ALT Alkaline Phosphatase Lactate Dehydrogenase Troponin T C-Reactive Protein Total Protein Albumin LDL Cholesterol Direct Urine Creatinine Urine Total Protein Salicylates Acetaminophen Crossmatch 11/09/21 11/09/21 11/09/21 04:51 04:51 04:51 WBC 27.6 H RBC 3.18 L Hgb 8.4 L Hct 26.6 L MCH 27 L RDW 15.3 H Plt Count Lymph % (Auto) Randall % (Auto) Lymph # (Auto) Randall # (Auto) Seg Neutrophils % Seg Neuts % (Manual) Lymphocytes % (Manual) Monocytes % (Manual) Basophils % (Manual) Nucleated RBC % Seg Neutrophils # Seg Neutrophils # Man Lymphocytes # (Manual) Monocytes # (Manual) Eosinophils # (Manual) Basophils # (Manual) PT INR APTT D-Dimer Heparin Anti-Xa Level 0.18 L ABG pH ABG pO2 ABG HCO3 ABG O2 Saturation ABG Base Excess ABG Hemoglobin Oxyhemoglobin Sodium 148 H Potassium 2.7 L* Chloride Carbon Dioxide BUN 59 H Creatinine 1.4 H Glucose 143 H POC Glucose Hemoglobin A1c Lactic Acid Calcium 8.3 L Phosphorus Magnesium Ferritin AST ALT Alkaline Phosphatase Lactate Dehydrogenase Troponin T C-Reactive Protein Total Protein Albumin LDL Cholesterol Direct Urine Creatinine Urine Total Protein Salicylates Acetaminophen Crossmatch 11/09/21 11/09/21 11/09/21 05:52 08:45 11:00 WBC RBC Hgb Hct MCH RDW Plt Count Lymph % (Auto) Randall % (Auto) Lymph # (Auto) Randall # (Auto) Seg Neutrophils % Seg Neuts % (Manual) Lymphocytes % (Manual) Monocytes % (Manual) Basophils % (Manual) Nucleated RBC % Seg Neutrophils # Seg Neutrophils # Man Lymphocytes # (Manual) Monocytes # (Manual) Eosinophils # (Manual) Basophils # (Manual) PT INR APTT D-Dimer Heparin Anti-Xa Level ABG pH ABG pO2 73.2 L ABG HCO3 33.8 H ABG O2 Saturation ABG Base Excess 8.7 H ABG Hemoglobin 8.5 L Oxyhemoglobin 94.1 L Sodium Potassium Chloride Carbon Dioxide BUN Creatinine Glucose POC Glucose 166 H 136 H Hemoglobin A1c Lactic Acid Calcium Phosphorus Magnesium Ferritin AST ALT Alkaline Phosphatase Lactate Dehydrogenase Troponin T C-Reactive Protein Total Protein Albumin LDL Cholesterol Direct Urine Creatinine Urine Total Protein Salicylates Acetaminophen Crossmatch 11/09/21 11/09/21 11/09/21 15:48 16:10 20:31 WBC RBC Hgb Hct MCH RDW Plt Count Lymph % (Auto) Randall % (Auto) Lymph # (Auto) Randall # (Auto) Seg Neutrophils % Seg Neuts % (Manual) Lymphocytes % (Manual) Monocytes % (Manual) Basophils % (Manual) Nucleated RBC % Seg Neutrophils # Seg Neutrophils # Man Lymphocytes # (Manual) Monocytes # (Manual) Eosinophils # (Manual) Basophils # (Manual) PT INR APTT D-Dimer Heparin Anti-Xa Level ABG pH ABG pO2 ABG HCO3 ABG O2 Saturation ABG Base Excess ABG Hemoglobin Oxyhemoglobin Sodium Potassium 2.8 L* Chloride Carbon Dioxide 31 H BUN 53 H Creatinine 1.3 H Glucose 208 H POC Glucose 203 H 166 H Hemoglobin A1c Lactic Acid Calcium 7.9 L Phosphorus Magnesium Ferritin AST ALT Alkaline Phosphatase Lactate Dehydrogenase Troponin T C-Reactive Protein Total Protein Albumin LDL Cholesterol Direct Urine Creatinine Urine Total Protein Salicylates Acetaminophen Crossmatch 11/09/21 11/09/21 11/09/21 21:30 23:16 Unknown WBC RBC Hgb Hct MCH RDW Plt Count Lymph % (Auto) Randall % (Auto) Lymph # (Auto) Randall # (Auto) Seg Neutrophils % Seg Neuts % (Manual) Lymphocytes % (Manual) Monocytes % (Manual) Basophils % (Manual) Nucleated RBC % Seg Neutrophils # Seg Neutrophils # Man Lymphocytes # (Manual) Monocytes # (Manual) Eosinophils # (Manual) Basophils # (Manual) PT INR APTT D-Dimer Heparin Anti-Xa Level 0.24 L ABG pH ABG pO2 ABG HCO3 ABG O2 Saturation ABG Base Excess ABG Hemoglobin Oxyhemoglobin Sodium Potassium Chloride Carbon Dioxide BUN 52 H Creatinine 1.4 H Glucose 185 H POC Glucose 172 H Hemoglobin A1c Lactic Acid Calcium 7.8 L Phosphorus Magnesium Ferritin AST ALT Alkaline Phosphatase Lactate Dehydrogenase Troponin T C-Reactive Protein Total Protein Albumin LDL Cholesterol Direct Urine Creatinine Urine Total Protein Salicylates Acetaminophen Crossmatch 11/10/21 11/10/21 11/10/21 02:00 04:17 04:17 WBC 24.5 H RBC 2.75 L Hgb 7.5 L Hct 22.9 L MCH 27 L RDW Plt Count Lymph % (Auto) Randall % (Auto) Lymph # (Auto) Randall # (Auto) Seg Neutrophils % Seg Neuts % (Manual) Lymphocytes % (Manual) Monocytes % (Manual) Basophils % (Manual) Nucleated RBC % Seg Neutrophils # Seg Neutrophils # Man Lymphocytes # (Manual) Monocytes # (Manual) Eosinophils # (Manual) Basophils # (Manual) PT INR APTT D-Dimer Heparin Anti-Xa Level 0.26 L ABG pH ABG pO2 ABG HCO3 ABG O2 Saturation ABG Base Excess ABG Hemoglobin Oxyhemoglobin Sodium Potassium 2.9 L* Chloride Carbon Dioxide 35 H BUN 48 H Creatinine Glucose 212 H POC Glucose Hemoglobin A1c Lactic Acid Calcium 8.1 L Phosphorus Magnesium Ferritin AST ALT Alkaline Phosphatase Lactate Dehydrogenase Troponin T C-Reactive Protein Total Protein Albumin LDL Cholesterol Direct Urine Creatinine Urine Total Protein Salicylates Acetaminophen Crossmatch 11/10/21 11/10/21 11/10/21 05:01 08:39 11:03 WBC RBC Hgb Hct MCH RDW Plt Count Lymph % (Auto) Randall % (Auto) Lymph # (Auto) Randall # (Auto) Seg Neutrophils % Seg Neuts % (Manual) Lymphocytes % (Manual) Monocytes % (Manual) Basophils % (Manual) Nucleated RBC % Seg Neutrophils # Seg Neutrophils # Man Lymphocytes # (Manual) Monocytes # (Manual) Eosinophils # (Manual) Basophils # (Manual) PT INR APTT D-Dimer Heparin Anti-Xa Level 0.12 L ABG pH ABG pO2 ABG HCO3 ABG O2 Saturation ABG Base Excess ABG Hemoglobin Oxyhemoglobin Sodium Potassium Chloride Carbon Dioxide BUN Creatinine Glucose POC Glucose 203 H 152 H Hemoglobin A1c Lactic Acid Calcium Phosphorus Magnesium Ferritin AST ALT Alkaline Phosphatase Lactate Dehydrogenase Troponin T C-Reactive Protein Total Protein Albumin LDL Cholesterol Direct Urine Creatinine Urine Total Protein Salicylates Acetaminophen Crossmatch 11/10/21 11/10/21 11/10/21 12:45 15:43 21:05 WBC RBC Hgb Hct MCH RDW Plt Count Lymph % (Auto) Randall % (Auto) Lymph # (Auto) Randall # (Auto) Seg Neutrophils % Seg Neuts % (Manual) Lymphocytes % (Manual) Monocytes % (Manual) Basophils % (Manual) Nucleated RBC % Seg Neutrophils # Seg Neutrophils # Man Lymphocytes # (Manual) Monocytes # (Manual) Eosinophils # (Manual) Basophils # (Manual) PT INR APTT D-Dimer Heparin Anti-Xa Level ABG pH ABG pO2 ABG HCO3 ABG O2 Saturation ABG Base Excess ABG Hemoglobin Oxyhemoglobin Sodium 146 H Potassium 3.3 L Chloride Carbon Dioxide 31 H BUN 43 H Creatinine Glucose 155 H POC Glucose 139 H 139 H Hemoglobin A1c Lactic Acid Calcium 8.3 L Phosphorus Magnesium Ferritin AST ALT Alkaline Phosphatase Lactate Dehydrogenase Troponin T C-Reactive Protein Total Protein Albumin LDL Cholesterol Direct Urine Creatinine Urine Total Protein Salicylates Acetaminophen Crossmatch 11/10/21 11/11/21 11/11/21 23:25 03:49 03:49 WBC 22.1 H RBC 2.69 L Hgb 7.2 L Hct 22.7 L MCH 27 L RDW Plt Count Lymph % (Auto) Randall % (Auto) Lymph # (Auto) Randall # (Auto) Seg Neutrophils % Seg Neuts % (Manual) Lymphocytes % (Manual) Monocytes % (Manual) Basophils % (Manual) Nucleated RBC % Seg Neutrophils # Seg Neutrophils # Man Lymphocytes # (Manual) Monocytes # (Manual) Eosinophils # (Manual) Basophils # (Manual) PT INR APTT D-Dimer Heparin Anti-Xa Level ABG pH ABG pO2 ABG HCO3 ABG O2 Saturation ABG Base Excess ABG Hemoglobin Oxyhemoglobin Sodium Potassium Chloride Carbon Dioxide 32 H BUN 44 H Creatinine 1.3 H Glucose 173 H POC Glucose 146 H Hemoglobin A1c Lactic Acid Calcium Phosphorus Magnesium Ferritin AST ALT Alkaline Phosphatase Lactate Dehydrogenase Troponin T C-Reactive Protein Total Protein Albumin LDL Cholesterol Direct Urine Creatinine Urine Total Protein Salicylates Acetaminophen Crossmatch 11/11/21 11/11/21 11/11/21 05:03 10:50 11:32 WBC RBC Hgb Hct MCH RDW Plt Count Lymph % (Auto) Randall % (Auto) Lymph # (Auto) Randall # (Auto) Seg Neutrophils % Seg Neuts % (Manual) Lymphocytes % (Manual) Monocytes % (Manual) Basophils % (Manual) Nucleated RBC % Seg Neutrophils # Seg Neutrophils # Man Lymphocytes # (Manual) Monocytes # (Manual) Eosinophils # (Manual) Basophils # (Manual) PT INR APTT D-Dimer Heparin Anti-Xa Level ABG pH ABG pO2 ABG HCO3 ABG O2 Saturation ABG Base Excess ABG Hemoglobin Oxyhemoglobin Sodium Potassium Chloride Carbon Dioxide BUN Creatinine Glucose POC Glucose 152 H 129 H 133 H Hemoglobin A1c Lactic Acid Calcium Phosphorus Magnesium Ferritin AST ALT Alkaline Phosphatase Lactate Dehydrogenase Troponin T C-Reactive Protein Total Protein Albumin LDL Cholesterol Direct Urine Creatinine Urine Total Protein Salicylates Acetaminophen Crossmatch 11/11/21 11/11/21 11/11/21 13:53 16:31 17:13 WBC RBC Hgb Hct MCH RDW Plt Count Lymph % (Auto) Randall % (Auto) Lymph # (Auto) Randall # (Auto) Seg Neutrophils % Seg Neuts % (Manual) Lymphocytes % (Manual) Monocytes % (Manual) Basophils % (Manual) Nucleated RBC % Seg Neutrophils # Seg Neutrophils # Man Lymphocytes # (Manual) Monocytes # (Manual) Eosinophils # (Manual) Basophils # (Manual) PT INR APTT D-Dimer Heparin Anti-Xa Level ABG pH 7.475 H ABG pO2 64.1 L ABG HCO3 32.4 H ABG O2 Saturation ABG Base Excess 8.0 H ABG Hemoglobin 7.6 L Oxyhemoglobin 94.0 L Sodium Potassium Chloride Carbon Dioxide BUN Creatinine Glucose POC Glucose 116 H 125 H Hemoglobin A1c Lactic Acid Calcium Phosphorus Magnesium Ferritin AST ALT Alkaline Phosphatase Lactate Dehydrogenase Troponin T C-Reactive Protein Total Protein Albumin LDL Cholesterol Direct Urine Creatinine Urine Total Protein Salicylates Acetaminophen Crossmatch 11/11/21 11/11/21 11/12/21 20:40 23:35 03:30 WBC 17.7 H RBC 2.37 L Hgb 6.3 L Hct 20.0 L MCH 27 L RDW 15.5 H Plt Count Lymph % (Auto) Randall % (Auto) Lymph # (Auto) Randall # (Auto) Seg Neutrophils % Seg Neuts % (Manual) Lymphocytes % (Manual) Monocytes % (Manual) Basophils % (Manual) Nucleated RBC % Seg Neutrophils # Seg Neutrophils # Man Lymphocytes # (Manual) Monocytes # (Manual) Eosinophils # (Manual) Basophils # (Manual) PT INR APTT D-Dimer Heparin Anti-Xa Level 0.26 L ABG pH ABG pO2 ABG HCO3 ABG O2 Saturation ABG Base Excess ABG Hemoglobin Oxyhemoglobin Sodium Potassium Chloride Carbon Dioxide BUN Creatinine Glucose POC Glucose 118 H Hemoglobin A1c Lactic Acid Calcium Phosphorus Magnesium Ferritin AST ALT Alkaline Phosphatase Lactate Dehydrogenase Troponin T C-Reactive Protein Total Protein Albumin LDL Cholesterol Direct Urine Creatinine Urine Total Protein Salicylates Acetaminophen Crossmatch 11/12/21 11/12/21 11/12/21 03:30 04:15 11:53 WBC RBC Hgb Hct MCH RDW Plt Count Lymph % (Auto) Randall % (Auto) Lymph # (Auto) Randall # (Auto) Seg Neutrophils % Seg Neuts % (Manual) Lymphocytes % (Manual) Monocytes % (Manual) Basophils % (Manual) Nucleated RBC % Seg Neutrophils # Seg Neutrophils # Man Lymphocytes # (Manual) Monocytes # (Manual) Eosinophils # (Manual) Basophils # (Manual) PT INR APTT D-Dimer Heparin Anti-Xa Level ABG pH ABG pO2 ABG HCO3 ABG O2 Saturation ABG Base Excess ABG Hemoglobin Oxyhemoglobin Sodium Potassium Chloride Carbon Dioxide 33 H BUN 38 H Creatinine 1.3 H Glucose 102 H POC Glucose 62 L Hemoglobin A1c Lactic Acid Calcium 8.2 L Phosphorus Magnesium Ferritin AST ALT Alkaline Phosphatase Lactate Dehydrogenase Troponin T C-Reactive Protein Total Protein Albumin LDL Cholesterol Direct Urine Creatinine Urine Total Protein Salicylates Acetaminophen Crossmatch See Detail 11/12/21 11/12/21 11/12/21 17:20 19:14 23:11 WBC RBC Hgb 6.2 L Hct 19.5 L* MCH RDW Plt Count Lymph % (Auto) Randall % (Auto) Lymph # (Auto) Randall # (Auto) Seg Neutrophils % Seg Neuts % (Manual) Lymphocytes % (Manual) Monocytes % (Manual) Basophils % (Manual) Nucleated RBC % Seg Neutrophils # Seg Neutrophils # Man Lymphocytes # (Manual) Monocytes # (Manual) Eosinophils # (Manual) Basophils # (Manual) PT INR APTT D-Dimer Heparin Anti-Xa Level ABG pH ABG pO2 ABG HCO3 ABG O2 Saturation ABG Base Excess ABG Hemoglobin Oxyhemoglobin Sodium Potassium Chloride Carbon Dioxide BUN Creatinine Glucose POC Glucose 115 H 131 H Hemoglobin A1c Lactic Acid Calcium Phosphorus Magnesium Ferritin AST ALT Alkaline Phosphatase Lactate Dehydrogenase Troponin T C-Reactive Protein Total Protein Albumin LDL Cholesterol Direct Urine Creatinine Urine Total Protein Salicylates Acetaminophen Crossmatch 11/13/21 11/13/21 11/13/21 00:13 04:17 04:17 WBC 23.8 H RBC 2.84 L Hgb 7.4 L 7.8 L Hct 23.3 L 24.9 L MCH 27 L RDW 15.4 H Plt Count Lymph % (Auto) Randall % (Auto) Lymph # (Auto) Randall # (Auto) Seg Neutrophils % Seg Neuts % (Manual) Lymphocytes % (Manual) Monocytes % (Manual) Basophils % (Manual) Nucleated RBC % Seg Neutrophils # Seg Neutrophils # Man Lymphocytes # (Manual) Monocytes # (Manual) Eosinophils # (Manual) Basophils # (Manual) PT INR APTT D-Dimer Heparin Anti-Xa Level ABG pH ABG pO2 ABG HCO3 ABG O2 Saturation ABG Base Excess ABG Hemoglobin Oxyhemoglobin Sodium 146 H Potassium Chloride Carbon Dioxide BUN 44 H Creatinine 1.6 H Glucose 144 H POC Glucose Hemoglobin A1c Lactic Acid Calcium 7.9 L Phosphorus 5.10 H D Magnesium Ferritin AST ALT Alkaline Phosphatase Lactate Dehydrogenase Troponin T C-Reactive Protein Total Protein Albumin LDL Cholesterol Direct Urine Creatinine Urine Total Protein Salicylates Acetaminophen Crossmatch 11/13/21 11/13/21 11/13/21 05:52 10:54 15:57 WBC RBC Hgb Hct MCH RDW Plt Count Lymph % (Auto) Randall % (Auto) Lymph # (Auto) Randall # (Auto) Seg Neutrophils % Seg Neuts % (Manual) Lymphocytes % (Manual) Monocytes % (Manual) Basophils % (Manual) Nucleated RBC % Seg Neutrophils # Seg Neutrophils # Man Lymphocytes # (Manual) Monocytes # (Manual) Eosinophils # (Manual) Basophils # (Manual) PT INR APTT D-Dimer Heparin Anti-Xa Level ABG pH ABG pO2 ABG HCO3 ABG O2 Saturation ABG Base Excess ABG Hemoglobin Oxyhemoglobin Sodium Potassium Chloride Carbon Dioxide BUN Creatinine Glucose POC Glucose 123 H 147 H 207 H Hemoglobin A1c Lactic Acid Calcium Phosphorus Magnesium Ferritin AST ALT Alkaline Phosphatase Lactate Dehydrogenase Troponin T C-Reactive Protein Total Protein Albumin LDL Cholesterol Direct Urine Creatinine Urine Total Protein Salicylates Acetaminophen Crossmatch 11/13/21 11/13/21 11/14/21 16:01 23:18 04:55 WBC 23.9 H RBC 2.86 L Hgb 6.5 L 8.3 L Hct 20.3 L 24.5 L MCH RDW Plt Count Lymph % (Auto) Randall % (Auto) Lymph # (Auto) Randall # (Auto) Seg Neutrophils % Seg Neuts % (Manual) Lymphocytes % (Manual) Monocytes % (Manual) Basophils % (Manual) Nucleated RBC % Seg Neutrophils # Seg Neutrophils # Man Lymphocytes # (Manual) Monocytes # (Manual) Eosinophils # (Manual) Basophils # (Manual) PT INR APTT D-Dimer Heparin Anti-Xa Level ABG pH ABG pO2 ABG HCO3 ABG O2 Saturation ABG Base Excess ABG Hemoglobin Oxyhemoglobin Sodium Potassium Chloride Carbon Dioxide BUN Creatinine Glucose POC Glucose 209 H Hemoglobin A1c Lactic Acid Calcium Phosphorus Magnesium Ferritin AST ALT Alkaline Phosphatase Lactate Dehydrogenase Troponin T C-Reactive Protein Total Protein Albumin LDL Cholesterol Direct Urine Creatinine Urine Total Protein Salicylates Acetaminophen Crossmatch 11/14/21 11/14/2122 04:55 05:09 11:35 WBC RBC Hgb Hct MCH RDW Plt Count Lymph % (Auto) Randall % (Auto) Lymph # (Auto) Randall # (Auto) Seg Neutrophils % Seg Neuts % (Manual) Lymphocytes % (Manual) Monocytes % (Manual) Basophils % (Manual) Nucleated RBC % Seg Neutrophils # Seg Neutrophils # Man Lymphocytes # (Manual) Monocytes # (Manual) Eosinophils # (Manual) Basophils # (Manual) PT INR APTT D-Dimer Heparin Anti-Xa Level ABG pH ABG pO2 ABG HCO3 ABG O2 Saturation ABG Base Excess ABG Hemoglobin Oxyhemoglobin Sodium 148 H Potassium Chloride 109.0 H Carbon Dioxide BUN 42 H Creatinine 1.6 H Glucose 184 H POC Glucose 169 H 154 H Hemoglobin A1c Lactic Acid Calcium 8.0 L Phosphorus Magnesium Ferritin AST ALT Alkaline Phosphatase Lactate Dehydrogenase Troponin T C-Reactive Protein Total Protein Albumin LDL Cholesterol Direct Urine Creatinine Urine Total Protein Salicylates Acetaminophen Crossmatch 11/14/21 11/14/21 11/15/21 16:57 23:11 04:36 WBC RBC Hgb Hct MCH RDW Plt Count Lymph % (Auto) Randall % (Auto) Lymph # (Auto) Randall # (Auto) Seg Neutrophils % Seg Neuts % (Manual) Lymphocytes % (Manual) Monocytes % (Manual) Basophils % (Manual) Nucleated RBC % Seg Neutrophils # Seg Neutrophils # Man Lymphocytes # (Manual) Monocytes # (Manual) Eosinophils # (Manual) Basophils # (Manual) PT INR APTT D-Dimer Heparin Anti-Xa Level ABG pH ABG pO2 ABG HCO3 ABG O2 Saturation ABG Base Excess ABG Hemoglobin Oxyhemoglobin Sodium 151 H Potassium Chloride 111.2 H Carbon Dioxide BUN 36 H Creatinine 1.3 H Glucose 136 H POC Glucose 124 H 118 H Hemoglobin A1c Lactic Acid Calcium 8.1 L Phosphorus Magnesium Ferritin AST ALT Alkaline Phosphatase Lactate Dehydrogenase Troponin T C-Reactive Protein Total Protein Albumin LDL Cholesterol Direct Urine Creatinine Urine Total Protein Salicylates Acetaminophen Crossmatch 11/15/21 11/15/21 11/16/21 11:18 21:49 00:15 WBC RBC Hgb Hct MCH RDW Plt Count Lymph % (Auto) Randall % (Auto) Lymph # (Auto) Randall # (Auto) Seg Neutrophils % Seg Neuts % (Manual) Lymphocytes % (Manual) Monocytes % (Manual) Basophils % (Manual) Nucleated RBC % Seg Neutrophils # Seg Neutrophils # Man Lymphocytes # (Manual) Monocytes # (Manual) Eosinophils # (Manual) Basophils # (Manual) PT INR APTT D-Dimer Heparin Anti-Xa Level ABG pH ABG pO2 ABG HCO3 ABG O2 Saturation ABG Base Excess ABG Hemoglobin Oxyhemoglobin Sodium Potassium Chloride Carbon Dioxide BUN Creatinine Glucose POC Glucose 154 H 154 H 146 H Hemoglobin A1c Lactic Acid Calcium Phosphorus Magnesium Ferritin AST ALT Alkaline Phosphatase Lactate Dehydrogenase Troponin T C-Reactive Protein Total Protein Albumin LDL Cholesterol Direct Urine Creatinine Urine Total Protein Salicylates Acetaminophen Crossmatch 11/16/21 11/16/21 11/16/21 05:11 05:11 05:37 WBC 18.2 H RBC 2.92 L Hgb 8.3 L Hct 26.1 L MCH RDW 15.8 H Plt Count Lymph % (Auto) 6.3 L Randall % (Auto) 10.2 H Lymph # (Auto) Randall # (Auto) 1.9 H Seg Neutrophils % 81.7 H Seg Neuts % (Manual) Lymphocytes % (Manual) Monocytes % (Manual) Basophils % (Manual) Nucleated RBC % Seg Neutrophils # 14.9 H Seg Neutrophils # Man Lymphocytes # (Manual) Monocytes # (Manual) Eosinophils # (Manual) Basophils # (Manual) PT INR APTT D-Dimer Heparin Anti-Xa Level ABG pH ABG pO2 ABG HCO3 ABG O2 Saturation ABG Base Excess ABG Hemoglobin Oxyhemoglobin Sodium 146 H Potassium Chloride 108.0 H Carbon Dioxide BUN 25 H Creatinine Glucose 123 H POC Glucose 109 H Hemoglobin A1c Lactic Acid Calcium 7.8 L Phosphorus Magnesium Ferritin AST ALT Alkaline Phosphatase Lactate Dehydrogenase Troponin T C-Reactive Protein Total Protein Albumin LDL Cholesterol Direct Urine Creatinine Urine Total Protein Salicylates Acetaminophen Crossmatch 11/16/21 11/16/21 11/17/21 11:22 23:55 04:33 WBC RBC Hgb Hct MCH RDW Plt Count Lymph % (Auto) Randall % (Auto) Lymph # (Auto) Randall # (Auto) Seg Neutrophils % Seg Neuts % (Manual) Lymphocytes % (Manual) Monocytes % (Manual) Basophils % (Manual) Nucleated RBC % Seg Neutrophils # Seg Neutrophils # Man Lymphocytes # (Manual) Monocytes # (Manual) Eosinophils # (Manual) Basophils # (Manual) PT INR APTT D-Dimer Heparin Anti-Xa Level ABG pH ABG pO2 ABG HCO3 ABG O2 Saturation ABG Base Excess ABG Hemoglobin Oxyhemoglobin Sodium Potassium Chloride Carbon Dioxide BUN 20 H Creatinine Glucose POC Glucose 136 H 113 H Hemoglobin A1c Lactic Acid Calcium 7.5 L Phosphorus Magnesium Ferritin AST ALT Alkaline Phosphatase Lactate Dehydrogenase Troponin T C-Reactive Protein Total Protein Albumin LDL Cholesterol Direct Urine Creatinine Urine Total Protein Salicylates Acetaminophen Crossmatch 11/17/21 11/18/21 11/18/21 23:22 04:53 04:53 WBC 13.0 H RBC 2.99 L Hgb 8.5 L Hct 26.4 L MCH RDW Plt Count Lymph % (Auto) 9.5 L Randall % (Auto) 9.8 H Lymph # (Auto) Randall # (Auto) 1.3 H Seg Neutrophils % 78.3 H Seg Neuts % (Manual) Lymphocytes % (Manual) Monocytes % (Manual) Basophils % (Manual) Nucleated RBC % Seg Neutrophils # 10.2 H Seg Neutrophils # Man Lymphocytes # (Manual) Monocytes # (Manual) Eosinophils # (Manual) Basophils # (Manual) PT INR APTT D-Dimer Heparin Anti-Xa Level ABG pH ABG pO2 ABG HCO3 ABG O2 Saturation ABG Base Excess ABG Hemoglobin Oxyhemoglobin Sodium Potassium Chloride Carbon Dioxide BUN 18 H Creatinine Glucose 106 H POC Glucose 112 H Hemoglobin A1c Lactic Acid Calcium 8.1 L Phosphorus Magnesium Ferritin AST ALT Alkaline Phosphatase Lactate Dehydrogenase Troponin T C-Reactive Protein Total Protein Albumin LDL Cholesterol Direct Urine Creatinine Urine Total Protein Salicylates Acetaminophen Crossmatch 11/18/21 11/18/21 11/19/21 11:35 17:42 14:38 WBC RBC Hgb Hct MCH RDW Plt Count Lymph % (Auto) Randall % (Auto) Lymph # (Auto) Randall # (Auto) Seg Neutrophils % Seg Neuts % (Manual) Lymphocytes % (Manual) Monocytes % (Manual) Basophils % (Manual) Nucleated RBC % Seg Neutrophils # Seg Neutrophils # Man Lymphocytes # (Manual) Monocytes # (Manual) Eosinophils # (Manual) Basophils # (Manual) PT INR APTT D-Dimer Heparin Anti-Xa Level ABG pH ABG pO2 ABG HCO3 ABG O2 Saturation ABG Base Excess ABG Hemoglobin Oxyhemoglobin Sodium Potassium Chloride 97.5 L Carbon Dioxide 31 H BUN Creatinine Glucose 146 H POC Glucose 143 H 132 H Hemoglobin A1c Lactic Acid Calcium Phosphorus Magnesium 1.60 L Ferritin AST ALT Alkaline Phosphatase Lactate Dehydrogenase Troponin T C-Reactive Protein Total Protein Albumin LDL Cholesterol Direct Urine Creatinine Urine Total Protein Salicylates Acetaminophen Crossmatch 11/19/21 11/19/21 11/20/21 16:24 23:58 07:42 WBC RBC 3.01 L Hgb 8.6 L Hct 26.7 L MCH RDW 15.4 H Plt Count Lymph % (Auto) Randall % (Auto) Lymph # (Auto) Randall # (Auto) Seg Neutrophils % Seg Neuts % (Manual) Lymphocytes % (Manual) Monocytes % (Manual) Basophils % (Manual) Nucleated RBC % Seg Neutrophils # Seg Neutrophils # Man Lymphocytes # (Manual) Monocytes # (Manual) Eosinophils # (Manual) Basophils # (Manual) PT INR APTT D-Dimer Heparin Anti-Xa Level ABG pH ABG pO2 ABG HCO3 ABG O2 Saturation ABG Base Excess ABG Hemoglobin Oxyhemoglobin Sodium Potassium Chloride Carbon Dioxide BUN Creatinine Glucose POC Glucose 129 H 125 H Hemoglobin A1c Lactic Acid Calcium Phosphorus Magnesium Ferritin AST ALT Alkaline Phosphatase Lactate Dehydrogenase Troponin T C-Reactive Protein Total Protein Albumin LDL Cholesterol Direct Urine Creatinine Urine Total Protein Salicylates Acetaminophen Crossmatch 11/20/21 11/20/21 11/20/21 07:42 11:25 22:59 WBC RBC Hgb Hct MCH RDW Plt Count Lymph % (Auto) Randall % (Auto) Lymph # (Auto) Randall # (Auto) Seg Neutrophils % Seg Neuts % (Manual) Lymphocytes % (Manual) Monocytes % (Manual) Basophils % (Manual) Nucleated RBC % Seg Neutrophils # Seg Neutrophils # Man Lymphocytes # (Manual) Monocytes # (Manual) Eosinophils # (Manual) Basophils # (Manual) PT INR APTT D-Dimer Heparin Anti-Xa Level ABG pH ABG pO2 ABG HCO3 ABG O2 Saturation ABG Base Excess ABG Hemoglobin Oxyhemoglobin Sodium Potassium Chloride Carbon Dioxide 31 H BUN Creatinine Glucose POC Glucose 116 H 113 H Hemoglobin A1c Lactic Acid Calcium Phosphorus Magnesium Ferritin AST ALT Alkaline Phosphatase Lactate Dehydrogenase Troponin T C-Reactive Protein Total Protein Albumin LDL Cholesterol Direct Urine Creatinine Urine Total Protein Salicylates Acetaminophen Crossmatch 11/21/21 11/22/21 11/22/21 10:50 05:10 16:12 WBC RBC Hgb Hct MCH RDW Plt Count Lymph % (Auto) Randall % (Auto) Lymph # (Auto) Randall # (Auto) Seg Neutrophils % Seg Neuts % (Manual) Lymphocytes % (Manual) Monocytes % (Manual) Basophils % (Manual) Nucleated RBC % Seg Neutrophils # Seg Neutrophils # Man Lymphocytes # (Manual) Monocytes # (Manual) Eosinophils # (Manual) Basophils # (Manual) PT INR APTT D-Dimer Heparin Anti-Xa Level ABG pH ABG pO2 ABG HCO3 ABG O2 Saturation ABG Base Excess ABG Hemoglobin Oxyhemoglobin Sodium Potassium Chloride Carbon Dioxide 32 H BUN Creatinine Glucose POC Glucose 156 H 110 H Hemoglobin A1c Lactic Acid Calcium 8.1 L Phosphorus Magnesium Ferritin AST ALT Alkaline Phosphatase Lactate Dehydrogenase Troponin T C-Reactive Protein Total Protein Albumin LDL Cholesterol Direct Urine Creatinine Urine Total Protein Salicylates Acetaminophen Crossmatch 11/23/21 11/23/21 11/23/21 07:18 07:18 11:45 WBC RBC 3.23 L Hgb 9.1 L Hct 28.5 L MCH RDW 15.6 H Plt Count Lymph % (Auto) Randall % (Auto) Lymph # (Auto) Randall # (Auto) Seg Neutrophils % Seg Neuts % (Manual) Lymphocytes % (Manual) Monocytes % (Manual) Basophils % (Manual) Nucleated RBC % Seg Neutrophils # Seg Neutrophils # Man Lymphocytes # (Manual) Monocytes # (Manual) Eosinophils # (Manual) Basophils # (Manual) PT INR APTT D-Dimer Heparin Anti-Xa Level ABG pH ABG pO2 ABG HCO3 ABG O2 Saturation ABG Base Excess ABG Hemoglobin Oxyhemoglobin Sodium Potassium 3.3 L Chloride 96.8 L Carbon Dioxide 32 H BUN Creatinine Glucose POC Glucose 140 H Hemoglobin A1c Lactic Acid Calcium Phosphorus Magnesium Ferritin AST ALT Alkaline Phosphatase Lactate Dehydrogenase Troponin T C-Reactive Protein Total Protein Albumin LDL Cholesterol Direct Urine Creatinine Urine Total Protein Salicylates Acetaminophen Crossmatch 11/23/21 11/23/21 11/24/21 16:40 23:45 07:19 WBC RBC 3.12 L Hgb 9.3 L Hct 27.2 L MCH RDW 16.0 H Plt Count Lymph % (Auto) 10.3 L Randall % (Auto) 10.0 H Lymph # (Auto) 1.1 L Randall # (Auto) 1.1 H Seg Neutrophils % 75.2 H Seg Neuts % (Manual) Lymphocytes % (Manual) Monocytes % (Manual) Basophils % (Manual) Nucleated RBC % Seg Neutrophils # 7.9 H Seg Neutrophils # Man Lymphocytes # (Manual) Monocytes # (Manual) Eosinophils # (Manual) Basophils # (Manual) PT INR APTT D-Dimer Heparin Anti-Xa Level ABG pH ABG pO2 ABG HCO3 ABG O2 Saturation ABG Base Excess ABG Hemoglobin Oxyhemoglobin Sodium Potassium Chloride Carbon Dioxide BUN Creatinine Glucose POC Glucose 140 H 138 H Hemoglobin A1c Lactic Acid Calcium Phosphorus Magnesium Ferritin AST ALT Alkaline Phosphatase Lactate Dehydrogenase Troponin T C-Reactive Protein Total Protein Albumin LDL Cholesterol Direct Urine Creatinine Urine Total Protein Salicylates Acetaminophen Crossmatch 11/24/21 11/24/21 11/24/21 07:19 11:49 15:54 WBC RBC Hgb Hct MCH RDW Plt Count Lymph % (Auto) Randall % (Auto) Lymph # (Auto) Randall # (Auto) Seg Neutrophils % Seg Neuts % (Manual) Lymphocytes % (Manual) Monocytes % (Manual) Basophils % (Manual) Nucleated RBC % Seg Neutrophils # Seg Neutrophils # Man Lymphocytes # (Manual) Monocytes # (Manual) Eosinophils # (Manual) Basophils # (Manual) PT INR APTT D-Dimer Heparin Anti-Xa Level ABG pH ABG pO2 ABG HCO3 ABG O2 Saturation ABG Base Excess ABG Hemoglobin Oxyhemoglobin Sodium Potassium 3.2 L Chloride 96.7 L Carbon Dioxide BUN Creatinine Glucose 125 H POC Glucose 118 H 106 H Hemoglobin A1c Lactic Acid Calcium Phosphorus Magnesium Ferritin AST ALT Alkaline Phosphatase Lactate Dehydrogenase Troponin T C-Reactive Protein Total Protein Albumin LDL Cholesterol Direct Urine Creatinine Urine Total Protein Salicylates Acetaminophen Crossmatch 11/25/21 11/25/21 11/25/21 11:49 15:41 20:51 WBC RBC Hgb Hct MCH RDW Plt Count Lymph % (Auto) Randall % (Auto) Lymph # (Auto) Randall # (Auto) Seg Neutrophils % Seg Neuts % (Manual) Lymphocytes % (Manual) Monocytes % (Manual) Basophils % (Manual) Nucleated RBC % Seg Neutrophils # Seg Neutrophils # Man Lymphocytes # (Manual) Monocytes # (Manual) Eosinophils # (Manual) Basophils # (Manual) PT INR APTT D-Dimer Heparin Anti-Xa Level ABG pH ABG pO2 ABG HCO3 ABG O2 Saturation ABG Base Excess ABG Hemoglobin Oxyhemoglobin Sodium Potassium Chloride Carbon Dioxide BUN Creatinine Glucose POC Glucose 119 H 110 H 109 H Hemoglobin A1c Lactic Acid Calcium Phosphorus Magnesium Ferritin AST ALT Alkaline Phosphatase Lactate Dehydrogenase Troponin T C-Reactive Protein Total Protein Albumin LDL Cholesterol Direct Urine Creatinine Urine Total Protein Salicylates Acetaminophen Crossmatch 11/26/21 11/26/21 11/26/21 07:33 11:20 17:03 WBC RBC Hgb Hct MCH RDW Plt Count Lymph % (Auto) Randall % (Auto) Lymph # (Auto) Randall # (Auto) Seg Neutrophils % Seg Neuts % (Manual) Lymphocytes % (Manual) Monocytes % (Manual) Basophils % (Manual) Nucleated RBC % Seg Neutrophils # Seg Neutrophils # Man Lymphocytes # (Manual) Monocytes # (Manual) Eosinophils # (Manual) Basophils # (Manual) PT INR APTT D-Dimer Heparin Anti-Xa Level ABG pH ABG pO2 ABG HCO3 ABG O2 Saturation ABG Base Excess ABG Hemoglobin Oxyhemoglobin Sodium Potassium Chloride Carbon Dioxide BUN Creatinine Glucose POC Glucose 158 H 162 H 144 H Hemoglobin A1c Lactic Acid Calcium Phosphorus Magnesium Ferritin AST ALT Alkaline Phosphatase Lactate Dehydrogenase Troponin T C-Reactive Protein Total Protein Albumin LDL Cholesterol Direct Urine Creatinine Urine Total Protein Salicylates Acetaminophen Crossmatch 11/26/21 11/27/21 11/27/21 21:51 07:44 12:20 WBC RBC Hgb Hct MCH RDW Plt Count Lymph % (Auto) Randall % (Auto) Lymph # (Auto) Randall # (Auto) Seg Neutrophils % Seg Neuts % (Manual) Lymphocytes % (Manual) Monocytes % (Manual) Basophils % (Manual) Nucleated RBC % Seg Neutrophils # Seg Neutrophils # Man Lymphocytes # (Manual) Monocytes # (Manual) Eosinophils # (Manual) Basophils # (Manual) PT INR APTT D-Dimer Heparin Anti-Xa Level ABG pH ABG pO2 ABG HCO3 ABG O2 Saturation ABG Base Excess ABG Hemoglobin Oxyhemoglobin Sodium Potassium Chloride Carbon Dioxide BUN Creatinine Glucose POC Glucose 132 H 129 H 128 H Hemoglobin A1c Lactic Acid Calcium Phosphorus Magnesium Ferritin AST ALT Alkaline Phosphatase Lactate Dehydrogenase Troponin T C-Reactive Protein Total Protein Albumin LDL Cholesterol Direct Urine Creatinine Urine Total Protein Salicylates Acetaminophen Crossmatch 11/27/21 11/27/21 11/28/21 16:44 21:35 07:54 WBC RBC Hgb Hct MCH RDW Plt Count Lymph % (Auto) Randall % (Auto) Lymph # (Auto) Randall # (Auto) Seg Neutrophils % Seg Neuts % (Manual) Lymphocytes % (Manual) Monocytes % (Manual) Basophils % (Manual) Nucleated RBC % Seg Neutrophils # Seg Neutrophils # Man Lymphocytes # (Manual) Monocytes # (Manual) Eosinophils # (Manual) Basophils # (Manual) PT INR APTT D-Dimer Heparin Anti-Xa Level ABG pH ABG pO2 ABG HCO3 ABG O2 Saturation ABG Base Excess ABG Hemoglobin Oxyhemoglobin Sodium Potassium Chloride Carbon Dioxide BUN Creatinine Glucose POC Glucose 126 H 131 H 124 H Hemoglobin A1c Lactic Acid Calcium Phosphorus Magnesium Ferritin AST ALT Alkaline Phosphatase Lactate Dehydrogenase Troponin T C-Reactive Protein Total Protein Albumin LDL Cholesterol Direct Urine Creatinine Urine Total Protein Salicylates Acetaminophen Crossmatch 11/28/21 11/28/21 11/28/21 11:27 11:56 16:34 WBC 12.3 H RBC 3.18 L Hgb 9.2 L Hct 27.8 L MCH RDW 16.1 H Plt Count Lymph % (Auto) 10.9 L Randall % (Auto) 13.7 H Lymph # (Auto) Randall # (Auto) 1.7 H Seg Neutrophils % 72.2 H Seg Neuts % (Manual) Lymphocytes % (Manual) Monocytes % (Manual) Basophils % (Manual) Nucleated RBC % Seg Neutrophils # 8.9 H Seg Neutrophils # Man Lymphocytes # (Manual) Monocytes # (Manual) Eosinophils # (Manual) Basophils # (Manual) PT INR APTT D-Dimer Heparin Anti-Xa Level ABG pH ABG pO2 ABG HCO3 ABG O2 Saturation ABG Base Excess ABG Hemoglobin Oxyhemoglobin Sodium Potassium Chloride Carbon Dioxide BUN Creatinine Glucose POC Glucose 131 H 123 H Hemoglobin A1c Lactic Acid Calcium Phosphorus Magnesium Ferritin AST ALT Alkaline Phosphatase Lactate Dehydrogenase Troponin T C-Reactive Protein Total Protein Albumin LDL Cholesterol Direct Urine Creatinine Urine Total Protein Salicylates Acetaminophen Crossmatch 11/28/21 11/28/21 11/29/21 19:35 21:32 07:33 WBC RBC Hgb Hct MCH RDW Plt Count Lymph % (Auto) Randall % (Auto) Lymph # (Auto) Randall # (Auto) Seg Neutrophils % Seg Neuts % (Manual) Lymphocytes % (Manual) Monocytes % (Manual) Basophils % (Manual) Nucleated RBC % Seg Neutrophils # Seg Neutrophils # Man Lymphocytes # (Manual) Monocytes # (Manual) Eosinophils # (Manual) Basophils # (Manual) PT INR APTT D-Dimer Heparin Anti-Xa Level 0.12 L ABG pH ABG pO2 ABG HCO3 ABG O2 Saturation ABG Base Excess ABG Hemoglobin Oxyhemoglobin Sodium Potassium Chloride Carbon Dioxide BUN Creatinine Glucose POC Glucose 110 H 108 H Hemoglobin A1c Lactic Acid Calcium Phosphorus Magnesium Ferritin AST ALT Alkaline Phosphatase Lactate Dehydrogenase Troponin T C-Reactive Protein Total Protein Albumin LDL Cholesterol Direct Urine Creatinine Urine Total Protein Salicylates Acetaminophen Crossmatch 11/29/21 11/29/21 11/29/21 11:29 13:51 15:25 WBC 13.0 H RBC 3.41 L Hgb 9.5 L Hct 29.9 L MCH RDW 16.2 H Plt Count Lymph % (Auto) 11.1 L Randall % (Auto) 15.5 H Lymph # (Auto) Randall # (Auto) 2.0 H Seg Neutrophils % 71.8 H Seg Neuts % (Manual) Lymphocytes % (Manual) Monocytes % (Manual) Basophils % (Manual) Nucleated RBC % Seg Neutrophils # 9.3 H Seg Neutrophils # Man Lymphocytes # (Manual) Monocytes # (Manual) Eosinophils # (Manual) Basophils # (Manual) PT INR APTT D-Dimer Heparin Anti-Xa Level ABG pH ABG pO2 ABG HCO3 ABG O2 Saturation ABG Base Excess ABG Hemoglobin Oxyhemoglobin Sodium Potassium Chloride Carbon Dioxide BUN Creatinine Glucose POC Glucose 136 H 123 H Hemoglobin A1c Lactic Acid Calcium Phosphorus Magnesium Ferritin AST ALT Alkaline Phosphatase Lactate Dehydrogenase Troponin T C-Reactive Protein Total Protein Albumin LDL Cholesterol Direct Urine Creatinine Urine Total Protein Salicylates Acetaminophen Crossmatch 11/29/21 11/29/21 11/29/21 18:50 18:50 20:16 WBC RBC Hgb Hct MCH RDW Plt Count Lymph % (Auto) Randall % (Auto) Lymph # (Auto) Randall # (Auto) Seg Neutrophils % Seg Neuts % (Manual) Lymphocytes % (Manual) Monocytes % (Manual) Basophils % (Manual) Nucleated RBC % Seg Neutrophils # Seg Neutrophils # Man Lymphocytes # (Manual) Monocytes # (Manual) Eosinophils # (Manual) Basophils # (Manual) PT INR APTT D-Dimer Heparin Anti-Xa Level 0.21 L ABG pH ABG pO2 ABG HCO3 ABG O2 Saturation ABG Base Excess ABG Hemoglobin Oxyhemoglobin Sodium 126 L Potassium Chloride 86.3 L Carbon Dioxide BUN 38 H Creatinine 3.6 H Glucose 153 H POC Glucose 166 H Hemoglobin A1c Lactic Acid Calcium Phosphorus Magnesium Ferritin AST ALT Alkaline Phosphatase Lactate Dehydrogenase Troponin T C-Reactive Protein Total Protein Albumin LDL Cholesterol Direct Urine Creatinine Urine Total Protein Salicylates Acetaminophen Crossmatch 11/30/21 11/30/21 11/30/21 05:14 07:35 11:15 WBC RBC Hgb 8.7 L Hct 26.8 L MCH RDW Plt Count Lymph % (Auto) Randall % (Auto) Lymph # (Auto) Randall # (Auto) Seg Neutrophils % Seg Neuts % (Manual) Lymphocytes % (Manual) Monocytes % (Manual) Basophils % (Manual) Nucleated RBC % Seg Neutrophils # Seg Neutrophils # Man Lymphocytes # (Manual) Monocytes # (Manual) Eosinophils # (Manual) Basophils # (Manual) PT INR APTT D-Dimer Heparin Anti-Xa Level ABG pH ABG pO2 ABG HCO3 ABG O2 Saturation ABG Base Excess ABG Hemoglobin Oxyhemoglobin Sodium Potassium Chloride Carbon Dioxide BUN Creatinine Glucose POC Glucose 114 H 119 H Hemoglobin A1c Lactic Acid Calcium Phosphorus Magnesium Ferritin AST ALT Alkaline Phosphatase Lactate Dehydrogenase Troponin T C-Reactive Protein Total Protein Albumin LDL Cholesterol Direct Urine Creatinine Urine Total Protein Salicylates Acetaminophen Crossmatch 11/30/21 11/30/21 11/30/21 15:26 17:10 18:51 WBC RBC Hgb Hct MCH RDW Plt Count Lymph % (Auto) Randall % (Auto) Lymph # (Auto) Randall # (Auto) Seg Neutrophils % Seg Neuts % (Manual) Lymphocytes % (Manual) Monocytes % (Manual) Basophils % (Manual) Nucleated RBC % Seg Neutrophils # Seg Neutrophils # Man Lymphocytes # (Manual) Monocytes # (Manual) Eosinophils # (Manual) Basophils # (Manual) PT INR APTT D-Dimer Heparin Anti-Xa Level 0.10 L ABG pH ABG pO2 ABG HCO3 ABG O2 Saturation ABG Base Excess ABG Hemoglobin Oxyhemoglobin Sodium 126 L Potassium Chloride 86.5 L Carbon Dioxide BUN 42 H Creatinine 4.0 H Glucose 155 H POC Glucose 157 H Hemoglobin A1c Lactic Acid Calcium 8.0 L Phosphorus Magnesium Ferritin AST ALT Alkaline Phosphatase Lactate Dehydrogenase Troponin T C-Reactive Protein Total Protein Albumin LDL Cholesterol Direct Urine Creatinine Urine Total Protein Salicylates Acetaminophen Crossmatch 11/30/21 12/01/21 12/01/21 20:04 00:39 09:38 WBC 25.2 H RBC 3.06 L Hgb 8.5 L Hct 26.8 L MCH RDW 16.1 H Plt Count Lymph % (Auto) Randall % (Auto) Lymph # (Auto) Randall # (Auto) Seg Neutrophils % Seg Neuts % (Manual) 80.0 H Lymphocytes % (Manual) 9.0 L Monocytes % (Manual) Basophils % (Manual) Nucleated RBC % Seg Neutrophils # Seg Neutrophils # Man 20.2 H Lymphocytes # (Manual) Monocytes # (Manual) 1.3 H Eosinophils # (Manual) Basophils # (Manual) PT INR APTT D-Dimer Heparin Anti-Xa Level 0.18 L ABG pH ABG pO2 ABG HCO3 ABG O2 Saturation ABG Base Excess ABG Hemoglobin Oxyhemoglobin Sodium Potassium Chloride Carbon Dioxide BUN Creatinine Glucose POC Glucose 115 H Hemoglobin A1c Lactic Acid Calcium Phosphorus Magnesium Ferritin AST ALT Alkaline Phosphatase Lactate Dehydrogenase Troponin T C-Reactive Protein Total Protein Albumin LDL Cholesterol Direct Urine Creatinine Urine Total Protein Salicylates Acetaminophen Crossmatch 12/01/21 12/01/21 12/02/21 09:38 11:35 03:22 WBC 23.3 H RBC 2.61 L Hgb 7.5 L Hct 22.8 L MCH RDW 16.1 H Plt Count Lymph % (Auto) Randall % (Auto) Lymph # (Auto) Randall # (Auto) Seg Neutrophils % Seg Neuts % (Manual) 77.0 H Lymphocytes % (Manual) 7.0 L Monocytes % (Manual) 14.0 H Basophils % (Manual) Nucleated RBC % Seg Neutrophils # Seg Neutrophils # Man 17.9 H Lymphocytes # (Manual) Monocytes # (Manual) 3.3 H Eosinophils # (Manual) Basophils # (Manual) 0.2 H PT INR APTT D-Dimer Heparin Anti-Xa Level ABG pH ABG pO2 ABG HCO3 ABG O2 Saturation ABG Base Excess ABG Hemoglobin Oxyhemoglobin Sodium 127 L Potassium 5.1 H Chloride 87.9 L Carbon Dioxide BUN 49 H Creatinine 4.9 H Glucose 134 H POC Glucose 109 H Hemoglobin A1c Lactic Acid Calcium 7.9 L Phosphorus Magnesium Ferritin AST ALT Alkaline Phosphatase Lactate Dehydrogenase Troponin T C-Reactive Protein Total Protein Albumin LDL Cholesterol Direct Urine Creatinine Urine Total Protein Salicylates Acetaminophen Crossmatch 12/02/21 12/02/21 12/02/21 03:22 03:22 15:40 WBC RBC Hgb Hct MCH RDW Plt Count Lymph % (Auto) Randall % (Auto) Lymph # (Auto) Randall # (Auto) Seg Neutrophils % Seg Neuts % (Manual) Lymphocytes % (Manual) Monocytes % (Manual) Basophils % (Manual) Nucleated RBC % Seg Neutrophils # Seg Neutrophils # Man Lymphocytes # (Manual) Monocytes # (Manual) Eosinophils # (Manual) Basophils # (Manual) PT INR APTT D-Dimer Heparin Anti-Xa Level 0.15 L < 0.10 L ABG pH ABG pO2 ABG HCO3 ABG O2 Saturation ABG Base Excess ABG Hemoglobin Oxyhemoglobin Sodium 129 L Potassium Chloride 91.7 L Carbon Dioxide BUN 42 H Creatinine 4.4 H Glucose POC Glucose Hemoglobin A1c Lactic Acid Calcium 8.0 L Phosphorus 5.20 H Magnesium Ferritin AST ALT Alkaline Phosphatase Lactate Dehydrogenase Troponin T C-Reactive Protein Total Protein Albumin LDL Cholesterol Direct Urine Creatinine Urine Total Protein Salicylates Acetaminophen Crossmatch 12/02/21 12/02/21 12/03/21 17:45 21:03 05:24 WBC 22.3 H RBC 2.69 L Hgb 7.4 L Hct 23.5 L MCH RDW 16.5 H Plt Count Lymph % (Auto) Randall % (Auto) Lymph # (Auto) Randall # (Auto) Seg Neutrophils % Seg Neuts % (Manual) 85.5 H Lymphocytes % (Manual) 6.0 L Monocytes % (Manual) Basophils % (Manual) Nucleated RBC % Seg Neutrophils # Seg Neutrophils # Man 19.1 H Lymphocytes # (Manual) Monocytes # (Manual) 1.0 H Eosinophils # (Manual) 0.7 H Basophils # (Manual) PT INR APTT D-Dimer Heparin Anti-Xa Level ABG pH ABG pO2 ABG HCO3 ABG O2 Saturation ABG Base Excess ABG Hemoglobin Oxyhemoglobin Sodium Potassium Chloride Carbon Dioxide BUN Creatinine Glucose POC Glucose 122 H 121 H Hemoglobin A1c Lactic Acid Calcium Phosphorus Magnesium Ferritin AST ALT Alkaline Phosphatase Lactate Dehydrogenase Troponin T C-Reactive Protein Total Protein Albumin LDL Cholesterol Direct Urine Creatinine Urine Total Protein Salicylates Acetaminophen Crossmatch 12/03/21 12/03/21 12/03/21 08:00 11:19 15:11 WBC RBC Hgb Hct MCH RDW Plt Count Lymph % (Auto) Randall % (Auto) Lymph # (Auto) Randall # (Auto) Seg Neutrophils % Seg Neuts % (Manual) Lymphocytes % (Manual) Monocytes % (Manual) Basophils % (Manual) Nucleated RBC % Seg Neutrophils # Seg Neutrophils # Man Lymphocytes # (Manual) Monocytes # (Manual) Eosinophils # (Manual) Basophils # (Manual) PT INR APTT D-Dimer Heparin Anti-Xa Level ABG pH ABG pO2 ABG HCO3 ABG O2 Saturation ABG Base Excess ABG Hemoglobin Oxyhemoglobin Sodium 134 L Potassium Chloride 95.9 L Carbon Dioxide BUN 30 H Creatinine 3.5 H Glucose 110 H POC Glucose 108 H 117 H Hemoglobin A1c Lactic Acid Calcium Phosphorus Magnesium Ferritin AST ALT Alkaline Phosphatase Lactate Dehydrogenase Troponin T C-Reactive Protein Total Protein Albumin LDL Cholesterol Direct Urine Creatinine Urine Total Protein Salicylates Acetaminophen Crossmatch 12/03/21 12/04/21 12/04/21 20:32 06:15 06:15 WBC 18.5 H RBC 2.88 L Hgb 8.0 L Hct 25.6 L MCH RDW 16.4 H Plt Count Lymph % (Auto) Randall % (Auto) Lymph # (Auto) Randall # (Auto) Seg Neutrophils % Seg Neuts % (Manual) 74.0 H Lymphocytes % (Manual) 11.0 L Monocytes % (Manual) 9.0 H Basophils % (Manual) Nucleated RBC % Seg Neutrophils # Seg Neutrophils # Man 13.7 H Lymphocytes # (Manual) Monocytes # (Manual) 1.7 H Eosinophils # (Manual) Basophils # (Manual) PT INR APTT D-Dimer Heparin Anti-Xa Level ABG pH ABG pO2 ABG HCO3 ABG O2 Saturation ABG Base Excess ABG Hemoglobin Oxyhemoglobin Sodium 135 L Potassium Chloride 96.9 L Carbon Dioxide BUN 19 H Creatinine 2.8 H Glucose 102 H POC Glucose 122 H Hemoglobin A1c Lactic Acid Calcium Phosphorus Magnesium Ferritin AST ALT Alkaline Phosphatase Lactate Dehydrogenase Troponin T C-Reactive Protein Total Protein Albumin LDL Cholesterol Direct Urine Creatinine Urine Total Protein Salicylates Acetaminophen Crossmatch 12/04/21 12/04/21 12/04/21 08:14 11:17 15:58 WBC RBC Hgb Hct MCH RDW Plt Count Lymph % (Auto) Randall % (Auto) Lymph # (Auto) Randall # (Auto) Seg Neutrophils % Seg Neuts % (Manual) Lymphocytes % (Manual) Monocytes % (Manual) Basophils % (Manual) Nucleated RBC % Seg Neutrophils # Seg Neutrophils # Man Lymphocytes # (Manual) Monocytes # (Manual) Eosinophils # (Manual) Basophils # (Manual) PT INR APTT D-Dimer Heparin Anti-Xa Level ABG pH ABG pO2 ABG HCO3 ABG O2 Saturation ABG Base Excess ABG Hemoglobin Oxyhemoglobin Sodium Potassium Chloride Carbon Dioxide BUN Creatinine Glucose POC Glucose 106 H 125 H 113 H Hemoglobin A1c Lactic Acid Calcium Phosphorus Magnesium Ferritin AST ALT Alkaline Phosphatase Lactate Dehydrogenase Troponin T C-Reactive Protein Total Protein Albumin LDL Cholesterol Direct Urine Creatinine Urine Total Protein Salicylates Acetaminophen Crossmatch 12/04/21 12/05/21 12/05/21 20:25 05:05 08:15 WBC 19.4 H RBC 2.89 L Hgb 8.1 L Hct 25.6 L MCH RDW 16.3 H Plt Count Lymph % (Auto) Randall % (Auto) Lymph # (Auto) Randall # (Auto) Seg Neutrophils % Seg Neuts % (Manual) Lymphocytes % (Manual) 13.0 L Monocytes % (Manual) 13.0 H Basophils % (Manual) Nucleated RBC % Seg Neutrophils # Seg Neutrophils # Man 12.4 H Lymphocytes # (Manual) Monocytes # (Manual) 2.5 H Eosinophils # (Manual) 0.8 H Basophils # (Manual) PT INR APTT D-Dimer Heparin Anti-Xa Level ABG pH ABG pO2 ABG HCO3 ABG O2 Saturation ABG Base Excess ABG Hemoglobin Oxyhemoglobin Sodium Potassium Chloride Carbon Dioxide BUN Creatinine Glucose POC Glucose 130 H 107 H Hemoglobin A1c Lactic Acid Calcium Phosphorus Magnesium Ferritin AST ALT Alkaline Phosphatase Lactate Dehydrogenase Troponin T C-Reactive Protein Total Protein Albumin LDL Cholesterol Direct Urine Creatinine Urine Total Protein Salicylates Acetaminophen Crossmatch 12/05/21 12/05/21 12/05/21 11:18 16:42 21:14 WBC RBC Hgb Hct MCH RDW Plt Count Lymph % (Auto) Randall % (Auto) Lymph # (Auto) Randall # (Auto) Seg Neutrophils % Seg Neuts % (Manual) Lymphocytes % (Manual) Monocytes % (Manual) Basophils % (Manual) Nucleated RBC % Seg Neutrophils # Seg Neutrophils # Man Lymphocytes # (Manual) Monocytes # (Manual) Eosinophils # (Manual) Basophils # (Manual) PT INR APTT D-Dimer Heparin Anti-Xa Level ABG pH ABG pO2 ABG HCO3 ABG O2 Saturation ABG Base Excess ABG Hemoglobin Oxyhemoglobin Sodium Potassium Chloride Carbon Dioxide BUN Creatinine Glucose POC Glucose 114 H 122 H 119 H Hemoglobin A1c Lactic Acid Calcium Phosphorus Magnesium Ferritin AST ALT Alkaline Phosphatase Lactate Dehydrogenase Troponin T C-Reactive Protein Total Protein Albumin LDL Cholesterol Direct Urine Creatinine Urine Total Protein Salicylates Acetaminophen Crossmatch 12/05/21 12/06/21 12/06/21 23:51 04:36 04:36 WBC RBC Hgb 8.0 L Hct 25.7 L MCH RDW Plt Count Lymph % (Auto) Randall % (Auto) Lymph # (Auto) Randall # (Auto) Seg Neutrophils % Seg Neuts % (Manual) Lymphocytes % (Manual) Monocytes % (Manual) Basophils % (Manual) Nucleated RBC % Seg Neutrophils # Seg Neutrophils # Man Lymphocytes # (Manual) Monocytes # (Manual) Eosinophils # (Manual) Basophils # (Manual) PT INR APTT D-Dimer Heparin Anti-Xa Level 0.71 H ABG pH ABG pO2 ABG HCO3 ABG O2 Saturation ABG Base Excess ABG Hemoglobin Oxyhemoglobin Sodium 132 L Potassium Chloride 92.5 L Carbon Dioxide BUN 35 H Creatinine 4.0 H Glucose POC Glucose Hemoglobin A1c Lactic Acid Calcium Phosphorus Magnesium Ferritin AST ALT Alkaline Phosphatase Lactate Dehydrogenase Troponin T C-Reactive Protein Total Protein Albumin LDL Cholesterol Direct Urine Creatinine Urine Total Protein Salicylates Acetaminophen Crossmatch 12/06/21 12/06/21 12/06/21 07:32 11:12 15:49 WBC RBC Hgb Hct MCH RDW Plt Count Lymph % (Auto) Randall % (Auto) Lymph # (Auto) Randall # (Auto) Seg Neutrophils % Seg Neuts % (Manual) Lymphocytes % (Manual) Monocytes % (Manual) Basophils % (Manual) Nucleated RBC % Seg Neutrophils # Seg Neutrophils # Man Lymphocytes # (Manual) Monocytes # (Manual) Eosinophils # (Manual) Basophils # (Manual) PT INR APTT D-Dimer Heparin Anti-Xa Level ABG pH ABG pO2 ABG HCO3 ABG O2 Saturation ABG Base Excess ABG Hemoglobin Oxyhemoglobin Sodium Potassium Chloride Carbon Dioxide BUN Creatinine Glucose POC Glucose 106 H 112 H 111 H Hemoglobin A1c Lactic Acid Calcium Phosphorus Magnesium Ferritin AST ALT Alkaline Phosphatase Lactate Dehydrogenase Troponin T C-Reactive Protein Total Protein Albumin LDL Cholesterol Direct Urine Creatinine Urine Total Protein Salicylates Acetaminophen Crossmatch 12/06/21 12/06/21 12/07/21 17:13 21:31 06:11 WBC RBC Hgb Hct MCH RDW Plt Count Lymph % (Auto) Randall % (Auto) Lymph # (Auto) Randall # (Auto) Seg Neutrophils % Seg Neuts % (Manual) Lymphocytes % (Manual) Monocytes % (Manual) Basophils % (Manual) Nucleated RBC % Seg Neutrophils # Seg Neutrophils # Man Lymphocytes # (Manual) Monocytes # (Manual) Eosinophils # (Manual) Basophils # (Manual) PT INR APTT D-Dimer Heparin Anti-Xa Level ABG pH ABG pO2 ABG HCO3 ABG O2 Saturation ABG Base Excess ABG Hemoglobin Oxyhemoglobin Sodium 126 L Potassium Chloride 90.1 L Carbon Dioxide BUN 43 H Creatinine 4.2 H Glucose POC Glucose 113 H 112 H Hemoglobin A1c Lactic Acid Calcium Phosphorus Magnesium Ferritin AST ALT Alkaline Phosphatase Lactate Dehydrogenase Troponin T C-Reactive Protein Total Protein Albumin LDL Cholesterol Direct Urine Creatinine Urine Total Protein Salicylates Acetaminophen Crossmatch 12/07/21 12/07/21 12/08/21 12:04 21:36 04:53 WBC RBC Hgb Hct MCH RDW Plt Count Lymph % (Auto) Randall % (Auto) Lymph # (Auto) Randall # (Auto) Seg Neutrophils % Seg Neuts % (Manual) Lymphocytes % (Manual) Monocytes % (Manual) Basophils % (Manual) Nucleated RBC % Seg Neutrophils # Seg Neutrophils # Man Lymphocytes # (Manual) Monocytes # (Manual) Eosinophils # (Manual) Basophils # (Manual) PT INR APTT D-Dimer Heparin Anti-Xa Level ABG pH ABG pO2 ABG HCO3 ABG O2 Saturation ABG Base Excess ABG Hemoglobin Oxyhemoglobin Sodium 128 L Potassium Chloride 93.1 L Carbon Dioxide 21 L BUN 39 H Creatinine 3.9 H Glucose 103 H POC Glucose 119 H 112 H Hemoglobin A1c Lactic Acid Calcium Phosphorus Magnesium Ferritin AST ALT Alkaline Phosphatase Lactate Dehydrogenase Troponin T C-Reactive Protein Total Protein Albumin LDL Cholesterol Direct Urine Creatinine Urine Total Protein Salicylates Acetaminophen Crossmatch 12/08/21 12/08/21 12/08/21 04:53 08:56 11:20 WBC 24.2 H RBC 2.71 L Hgb 7.6 L Hct 24.1 L MCH RDW 16.7 H Plt Count 114 L Lymph % (Auto) Randall % (Auto) Lymph # (Auto) Randall # (Auto) Seg Neutrophils % Seg Neuts % (Manual) 76.0 H Lymphocytes % (Manual) Monocytes % (Manual) Basophils % (Manual) Nucleated RBC % 1.0 H Seg Neutrophils # Seg Neutrophils # Man 18.4 H Lymphocytes # (Manual) Monocytes # (Manual) 1.5 H Eosinophils # (Manual) 1.0 H Basophils # (Manual) PT INR APTT D-Dimer Heparin Anti-Xa Level 0.94 H ABG pH ABG pO2 ABG HCO3 ABG O2 Saturation ABG Base Excess ABG Hemoglobin Oxyhemoglobin Sodium Potassium Chloride Carbon Dioxide BUN Creatinine Glucose POC Glucose 119 H Hemoglobin A1c Lactic Acid Calcium Phosphorus Magnesium Ferritin AST ALT Alkaline Phosphatase Lactate Dehydrogenase Troponin T C-Reactive Protein Total Protein Albumin LDL Cholesterol Direct Urine Creatinine Urine Total Protein Salicylates Acetaminophen Crossmatch 12/08/21 12/08/21 12/09/21 16:55 21:18 07:05 WBC RBC Hgb Hct MCH RDW Plt Count Lymph % (Auto) Randall % (Auto) Lymph # (Auto) Randall # (Auto) Seg Neutrophils % Seg Neuts % (Manual) Lymphocytes % (Manual) Monocytes % (Manual) Basophils % (Manual) Nucleated RBC % Seg Neutrophils # Seg Neutrophils # Man Lymphocytes # (Manual) Monocytes # (Manual) Eosinophils # (Manual) Basophils # (Manual) PT INR APTT D-Dimer Heparin Anti-Xa Level ABG pH ABG pO2 ABG HCO3 ABG O2 Saturation ABG Base Excess ABG Hemoglobin Oxyhemoglobin Sodium 124 L Potassium Chloride 89.9 L Carbon Dioxide BUN 45 H Creatinine 3.5 H Glucose POC Glucose 112 H 122 H Hemoglobin A1c Lactic Acid Calcium Phosphorus Magnesium Ferritin AST ALT Alkaline Phosphatase Lactate Dehydrogenase Troponin T C-Reactive Protein Total Protein Albumin LDL Cholesterol Direct Urine Creatinine Urine Total Protein Salicylates Acetaminophen Crossmatch 12/09/21 12/09/21 12/10/21 11:02 20:11 05:22 WBC RBC Hgb Hct MCH RDW Plt Count Lymph % (Auto) Randall % (Auto) Lymph # (Auto) Randall # (Auto) Seg Neutrophils % Seg Neuts % (Manual) Lymphocytes % (Manual) Monocytes % (Manual) Basophils % (Manual) Nucleated RBC % Seg Neutrophils # Seg Neutrophils # Man Lymphocytes # (Manual) Monocytes # (Manual) Eosinophils # (Manual) Basophils # (Manual) PT INR APTT D-Dimer Heparin Anti-Xa Level ABG pH ABG pO2 ABG HCO3 ABG O2 Saturation ABG Base Excess ABG Hemoglobin Oxyhemoglobin Sodium 131 L D Potassium Chloride 97.0 L Carbon Dioxide BUN 34 H Creatinine 2.9 H Glucose POC Glucose 132 H 108 H Hemoglobin A1c Lactic Acid Calcium Phosphorus Magnesium Ferritin AST ALT Alkaline Phosphatase Lactate Dehydrogenase Troponin T C-Reactive Protein Total Protein Albumin LDL Cholesterol Direct Urine Creatinine Urine Total Protein Salicylates Acetaminophen Crossmatch 12/10/21 12/10/21 12/10/21 05:22 07:48 11:30 WBC 14.5 H RBC 2.65 L Hgb 7.7 L Hct 23.6 L MCH RDW 17.0 H Plt Count 119 L Lymph % (Auto) Randall % (Auto) Lymph # (Auto) Randall # (Auto) Seg Neutrophils % Seg Neuts % (Manual) 73.0 H Lymphocytes % (Manual) 7.0 L Monocytes % (Manual) Basophils % (Manual) 2.0 H Nucleated RBC % 1.0 H Seg Neutrophils # Seg Neutrophils # Man 10.6 H Lymphocytes # (Manual) 1.0 L Monocytes # (Manual) Eosinophils # (Manual) Basophils # (Manual) 0.3 H PT INR APTT D-Dimer Heparin Anti-Xa Level ABG pH ABG pO2 ABG HCO3 ABG O2 Saturation ABG Base Excess ABG Hemoglobin Oxyhemoglobin Sodium Potassium Chloride Carbon Dioxide BUN Creatinine Glucose POC Glucose 106 H 129 H Hemoglobin A1c Lactic Acid Calcium Phosphorus Magnesium Ferritin AST ALT Alkaline Phosphatase Lactate Dehydrogenase Troponin T C-Reactive Protein Total Protein Albumin LDL Cholesterol Direct Urine Creatinine Urine Total Protein Salicylates Acetaminophen Crossmatch 12/10/21 12/10/21 12/10/21 16:17 20:56 21:40 WBC RBC Hgb Hct MCH RDW Plt Count Lymph % (Auto) Randall % (Auto) Lymph # (Auto) Randall # (Auto) Seg Neutrophils % Seg Neuts % (Manual) Lymphocytes % (Manual) Monocytes % (Manual) Basophils % (Manual) Nucleated RBC % Seg Neutrophils # Seg Neutrophils # Man Lymphocytes # (Manual) Monocytes # (Manual) Eosinophils # (Manual) Basophils # (Manual) PT INR APTT D-Dimer Heparin Anti-Xa Level 0.87 H ABG pH ABG pO2 ABG HCO3 ABG O2 Saturation ABG Base Excess ABG Hemoglobin Oxyhemoglobin Sodium Potassium Chloride Carbon Dioxide BUN Creatinine Glucose POC Glucose 108 H 113 H Hemoglobin A1c Lactic Acid Calcium Phosphorus Magnesium Ferritin AST ALT Alkaline Phosphatase Lactate Dehydrogenase Troponin T C-Reactive Protein Total Protein Albumin LDL Cholesterol Direct Urine Creatinine Urine Total Protein Salicylates Acetaminophen Crossmatch 12/11/21 12/11/21 12/11/21 05:21 05:21 08:10 WBC RBC Hgb Hct MCH RDW Plt Count Lymph % (Auto) Randall % (Auto) Lymph # (Auto) Randall # (Auto) Seg Neutrophils % Seg Neuts % (Manual) Lymphocytes % (Manual) Monocytes % (Manual) Basophils % (Manual) Nucleated RBC % Seg Neutrophils # Seg Neutrophils # Man Lymphocytes # (Manual) Monocytes # (Manual) Eosinophils # (Manual) Basophils # (Manual) PT INR APTT D-Dimer Heparin Anti-Xa Level 0.85 H ABG pH ABG pO2 ABG HCO3 ABG O2 Saturation ABG Base Excess ABG Hemoglobin Oxyhemoglobin Sodium 129 L Potassium Chloride 94.3 L Carbon Dioxide BUN 41 H Creatinine 3.0 H Glucose 111 H POC Glucose 109 H Hemoglobin A1c Lactic Acid Calcium Phosphorus Magnesium Ferritin AST ALT Alkaline Phosphatase Lactate Dehydrogenase Troponin T C-Reactive Protein Total Protein Albumin LDL Cholesterol Direct Urine Creatinine Urine Total Protein Salicylates Acetaminophen Crossmatch 12/11/21 12/11/21 12/11/21 12:00 13:08 13:08 WBC 13.6 H RBC 2.78 L Hgb 8.1 L Hct 25.2 L MCH RDW 17.7 H Plt Count Lymph % (Auto) Randall % (Auto) Lymph # (Auto) Randall # (Auto) Seg Neutrophils % Seg Neuts % (Manual) Lymphocytes % (Manual) Monocytes % (Manual) Basophils % (Manual) Nucleated RBC % Seg Neutrophils # Seg Neutrophils # Man Lymphocytes # (Manual) Monocytes # (Manual) Eosinophils # (Manual) Basophils # (Manual) PT INR APTT 116.8 H* D-Dimer Heparin Anti-Xa Level ABG pH ABG pO2 ABG HCO3 ABG O2 Saturation ABG Base Excess ABG Hemoglobin Oxyhemoglobin Sodium Potassium Chloride Carbon Dioxide BUN Creatinine Glucose POC Glucose 170 H Hemoglobin A1c Lactic Acid Calcium Phosphorus Magnesium Ferritin AST ALT Alkaline Phosphatase Lactate Dehydrogenase Troponin T C-Reactive Protein Total Protein Albumin LDL Cholesterol Direct Urine Creatinine Urine Total Protein Salicylates Acetaminophen Crossmatch 12/11/21 12/12/21 12/12/21 13:08 05:15 14:10 WBC RBC Hgb Hct MCH RDW Plt Count Lymph % (Auto) Randall % (Auto) Lymph # (Auto) Randall # (Auto) Seg Neutrophils % Seg Neuts % (Manual) Lymphocytes % (Manual) Monocytes % (Manual) Basophils % (Manual) Nucleated RBC % Seg Neutrophils # Seg Neutrophils # Man Lymphocytes # (Manual) Monocytes # (Manual) Eosinophils # (Manual) Basophils # (Manual) PT INR APTT D-Dimer Heparin Anti-Xa Level ABG pH 7.333 L ABG pO2 57.0 L ABG HCO3 ABG O2 Saturation 88.0 L ABG Base Excess ABG Hemoglobin 7.6 L Oxyhemoglobin 85.4 L Sodium 129 L Potassium 5.1 H Chloride 95.8 L Carbon Dioxide 21 L BUN 48 H Creatinine 3.0 H 2.9 H Glucose POC Glucose Hemoglobin A1c Lactic Acid Calcium Phosphorus Magnesium Ferritin AST ALT Alkaline Phosphatase Lactate Dehydrogenase Troponin T C-Reactive Protein Total Protein Albumin LDL Cholesterol Direct Urine Creatinine Urine Total Protein Salicylates Acetaminophen Crossmatch 12/12/21 12/13/21 12/13/21 21:25 06:19 16:21 WBC 12.9 H RBC 2.54 L Hgb 7.2 L Hct 22.8 L MCH RDW 18.0 H Plt Count Lymph % (Auto) Randall % (Auto) Lymph # (Auto) Randall # (Auto) Seg Neutrophils % Seg Neuts % (Manual) Lymphocytes % (Manual) Monocytes % (Manual) Basophils % (Manual) Nucleated RBC % Seg Neutrophils # Seg Neutrophils # Man Lymphocytes # (Manual) Monocytes # (Manual) Eosinophils # (Manual) Basophils # (Manual) PT INR APTT D-Dimer Heparin Anti-Xa Level ABG pH ABG pO2 ABG HCO3 ABG O2 Saturation ABG Base Excess ABG Hemoglobin Oxyhemoglobin Sodium Potassium Chloride Carbon Dioxide BUN Creatinine Glucose POC Glucose 125 H 117 H Hemoglobin A1c Lactic Acid Calcium Phosphorus Magnesium Ferritin AST ALT Alkaline Phosphatase Lactate Dehydrogenase Troponin T C-Reactive Protein Total Protein Albumin LDL Cholesterol Direct Urine Creatinine Urine Total Protein Salicylates Acetaminophen Crossmatch 12/13/21 12/14/21 12/14/21 21:20 06:36 12:17 WBC RBC Hgb Hct MCH RDW Plt Count Lymph % (Auto) Randall % (Auto) Lymph # (Auto) Randall # (Auto) Seg Neutrophils % Seg Neuts % (Manual) Lymphocytes % (Manual) Monocytes % (Manual) Basophils % (Manual) Nucleated RBC % Seg Neutrophils # Seg Neutrophils # Man Lymphocytes # (Manual) Monocytes # (Manual) Eosinophils # (Manual) Basophils # (Manual) PT INR APTT D-Dimer Heparin Anti-Xa Level ABG pH ABG pO2 ABG HCO3 ABG O2 Saturation ABG Base Excess ABG Hemoglobin Oxyhemoglobin Sodium 132 L Potassium Chloride Carbon Dioxide BUN 43 H Creatinine 1.9 H Glucose POC Glucose 114 H 130 H Hemoglobin A1c Lactic Acid Calcium Phosphorus Magnesium Ferritin AST ALT < 5 L Alkaline Phosphatase Lactate Dehydrogenase Troponin T C-Reactive Protein Total Protein 6.0 L Albumin 3.0 L LDL Cholesterol Direct Urine Creatinine Urine Total Protein Salicylates Acetaminophen Crossmatch 12/14/21 12/14/21 12/15/21 16:25 20:49 03:59 WBC RBC 2.37 L Hgb 6.9 L Hct 21.4 L MCH RDW 18.4 H Plt Count Lymph % (Auto) Randall % (Auto) Lymph # (Auto) Randall # (Auto) Seg Neutrophils % Seg Neuts % (Manual) Lymphocytes % (Manual) Monocytes % (Manual) Basophils % (Manual) Nucleated RBC % Seg Neutrophils # Seg Neutrophils # Man Lymphocytes # (Manual) Monocytes # (Manual) Eosinophils # (Manual) Basophils # (Manual) PT INR APTT D-Dimer Heparin Anti-Xa Level ABG pH ABG pO2 ABG HCO3 ABG O2 Saturation ABG Base Excess ABG Hemoglobin Oxyhemoglobin Sodium Potassium Chloride Carbon Dioxide BUN Creatinine Glucose POC Glucose 128 H 126 H Hemoglobin A1c Lactic Acid Calcium Phosphorus Magnesium Ferritin AST ALT Alkaline Phosphatase Lactate Dehydrogenase Troponin T C-Reactive Protein Total Protein Albumin LDL Cholesterol Direct Urine Creatinine Urine Total Protein Salicylates Acetaminophen Crossmatch 12/15/21 12/15/21 12/15/21 06:06 12:08 21:05 WBC RBC Hgb Hct MCH RDW Plt Count Lymph % (Auto) Randall % (Auto) Lymph # (Auto) Randall # (Auto) Seg Neutrophils % Seg Neuts % (Manual) Lymphocytes % (Manual) Monocytes % (Manual) Basophils % (Manual) Nucleated RBC % Seg Neutrophils # Seg Neutrophils # Man Lymphocytes # (Manual) Monocytes # (Manual) Eosinophils # (Manual) Basophils # (Manual) PT INR APTT D-Dimer Heparin Anti-Xa Level ABG pH ABG pO2 ABG HCO3 ABG O2 Saturation ABG Base Excess ABG Hemoglobin Oxyhemoglobin Sodium 133 L Potassium Chloride Carbon Dioxide BUN 42 H Creatinine 1.5 H Glucose POC Glucose 146 H Hemoglobin A1c Lactic Acid Calcium Phosphorus Magnesium Ferritin AST ALT Alkaline Phosphatase Lactate Dehydrogenase Troponin T C-Reactive Protein Total Protein Albumin LDL Cholesterol Direct Urine Creatinine Urine Total Protein Salicylates Acetaminophen Crossmatch See Detail 12/16/21 12/16/21 12/16/21 07:03 08:44 11:09 WBC 11.7 H RBC 2.72 L Hgb 8.2 L Hct 25.2 L MCH RDW 19.3 H Plt Count Lymph % (Auto) Randall % (Auto) Lymph # (Auto) Randall # (Auto) Seg Neutrophils % Seg Neuts % (Manual) Lymphocytes % (Manual) Monocytes % (Manual) Basophils % (Manual) Nucleated RBC % Seg Neutrophils # Seg Neutrophils # Man Lymphocytes # (Manual) Monocytes # (Manual) Eosinophils # (Manual) Basophils # (Manual) PT INR APTT D-Dimer Heparin Anti-Xa Level ABG pH ABG pO2 ABG HCO3 ABG O2 Saturation ABG Base Excess ABG Hemoglobin Oxyhemoglobin Sodium 134 L Potassium Chloride Carbon Dioxide BUN 39 H Creatinine 1.5 H Glucose 104 H POC Glucose 134 H Hemoglobin A1c Lactic Acid Calcium Phosphorus Magnesium Ferritin AST ALT Alkaline Phosphatase Lactate Dehydrogenase Troponin T C-Reactive Protein Total Protein Albumin LDL Cholesterol Direct Urine Creatinine Urine Total Protein Salicylates Acetaminophen Crossmatch 12/16/21 12/16/21 12/16/21 15:40 17:35 21:05 WBC RBC 2.81 L Hgb 8.3 L 8.3 L Hct 26.2 L 26.4 L MCH RDW 19.7 H Plt Count Lymph % (Auto) Randall % (Auto) Lymph # (Auto) Randall # (Auto) Seg Neutrophils % Seg Neuts % (Manual) Lymphocytes % (Manual) Monocytes % (Manual) Basophils % (Manual) Nucleated RBC % Seg Neutrophils # Seg Neutrophils # Man Lymphocytes # (Manual) Monocytes # (Manual) Eosinophils # (Manual) Basophils # (Manual) PT INR APTT D-Dimer Heparin Anti-Xa Level ABG pH ABG pO2 ABG HCO3 ABG O2 Saturation ABG Base Excess ABG Hemoglobin Oxyhemoglobin Sodium Potassium Chloride Carbon Dioxide BUN Creatinine Glucose POC Glucose 108 H Hemoglobin A1c Lactic Acid Calcium Phosphorus Magnesium Ferritin AST ALT Alkaline Phosphatase Lactate Dehydrogenase Troponin T C-Reactive Protein Total Protein Albumin LDL Cholesterol Direct Urine Creatinine Urine Total Protein Salicylates Acetaminophen Crossmatch 12/16/21 12/16/21 12/16/21 21:05 21:05 21:49 WBC RBC Hgb Hct MCH RDW Plt Count Lymph % (Auto) Randall % (Auto) Lymph # (Auto) Randall # (Auto) Seg Neutrophils % Seg Neuts % (Manual) Lymphocytes % (Manual) Monocytes % (Manual) Basophils % (Manual) Nucleated RBC % Seg Neutrophils # Seg Neutrophils # Man Lymphocytes # (Manual) Monocytes # (Manual) Eosinophils # (Manual) Basophils # (Manual) PT 16.8 H INR 1.22 H APTT D-Dimer Heparin Anti-Xa Level ABG pH ABG pO2 ABG HCO3 ABG O2 Saturation ABG Base Excess ABG Hemoglobin Oxyhemoglobin Sodium Potassium Chloride Carbon Dioxide BUN Creatinine 1.5 H Glucose POC Glucose 113 H Hemoglobin A1c Lactic Acid Calcium Phosphorus Magnesium Ferritin AST ALT Alkaline Phosphatase Lactate Dehydrogenase Troponin T C-Reactive Protein Total Protein Albumin LDL Cholesterol Direct Urine Creatinine Urine Total Protein Salicylates Acetaminophen Crossmatch 12/17/21 12/17/21 12/17/21 05:59 05:59 05:59 WBC RBC 2.85 L Hgb 8.5 L Hct 26.8 L MCH RDW 19.6 H Plt Count Lymph % (Auto) Randall % (Auto) 15.4 H Lymph # (Auto) Randall # (Auto) 1.1 H Seg Neutrophils % Seg Neuts % (Manual) Lymphocytes % (Manual) Monocytes % (Manual) Basophils % (Manual) Nucleated RBC % Seg Neutrophils # Seg Neutrophils # Man Lymphocytes # (Manual) Monocytes # (Manual) Eosinophils # (Manual) Basophils # (Manual) PT INR APTT D-Dimer Heparin Anti-Xa Level ABG pH ABG pO2 ABG HCO3 ABG O2 Saturation ABG Base Excess ABG Hemoglobin Oxyhemoglobin Sodium 134 L Potassium 5.7 H Chloride Carbon Dioxide BUN 40 H Creatinine 1.5 H 1.5 H Glucose 106 H POC Glucose Hemoglobin A1c Lactic Acid Calcium Phosphorus Magnesium Ferritin AST ALT Alkaline Phosphatase Lactate Dehydrogenase Troponin T C-Reactive Protein Total Protein Albumin LDL Cholesterol Direct Urine Creatinine Urine Total Protein Salicylates Acetaminophen Crossmatch 12/17/21 12/17/21 12/17/21 11:28 16:14 21:34 WBC RBC Hgb Hct MCH RDW Plt Count Lymph % (Auto) Randall % (Auto) Lymph # (Auto) Randall # (Auto) Seg Neutrophils % Seg Neuts % (Manual) Lymphocytes % (Manual) Monocytes % (Manual) Basophils % (Manual) Nucleated RBC % Seg Neutrophils # Seg Neutrophils # Man Lymphocytes # (Manual) Monocytes # (Manual) Eosinophils # (Manual) Basophils # (Manual) PT INR APTT D-Dimer Heparin Anti-Xa Level ABG pH ABG pO2 ABG HCO3 ABG O2 Saturation ABG Base Excess ABG Hemoglobin Oxyhemoglobin Sodium Potassium Chloride Carbon Dioxide BUN Creatinine Glucose POC Glucose 127 H 151 H 137 H Hemoglobin A1c Lactic Acid Calcium Phosphorus Magnesium Ferritin AST ALT Alkaline Phosphatase Lactate Dehydrogenase Troponin T C-Reactive Protein Total Protein Albumin LDL Cholesterol Direct Urine Creatinine Urine Total Protein Salicylates Acetaminophen Crossmatch 12/18/21 12/18/21 12/18/21 05:32 05:32 16:24 WBC RBC 2.85 L Hgb 8.4 L Hct 27.0 L MCH RDW 20.2 H Plt Count Lymph % (Auto) Randall % (Auto) Lymph # (Auto) Randall # (Auto) Seg Neutrophils % Seg Neuts % (Manual) Lymphocytes % (Manual) Monocytes % (Manual) Basophils % (Manual) Nucleated RBC % Seg Neutrophils # Seg Neutrophils # Man Lymphocytes # (Manual) Monocytes # (Manual) Eosinophils # (Manual) Basophils # (Manual) PT INR APTT D-Dimer Heparin Anti-Xa Level ABG pH ABG pO2 ABG HCO3 ABG O2 Saturation ABG Base Excess ABG Hemoglobin Oxyhemoglobin Sodium Potassium Chloride Carbon Dioxide BUN 33 H Creatinine 1.4 H Glucose 105 H POC Glucose 121 H Hemoglobin A1c Lactic Acid Calcium Phosphorus Magnesium Ferritin AST ALT Alkaline Phosphatase Lactate Dehydrogenase Troponin T C-Reactive Protein Total Protein Albumin LDL Cholesterol Direct Urine Creatinine Urine Total Protein Salicylates Acetaminophen Crossmatch 12/18/21 12/19/21 22:48 04:38 WBC RBC Hgb Hct MCH RDW Plt Count Lymph % (Auto) Randall % (Auto) Lymph # (Auto) Randall # (Auto) Seg Neutrophils % Seg Neuts % (Manual) Lymphocytes % (Manual) Monocytes % (Manual) Basophils % (Manual) Nucleated RBC % Seg Neutrophils # Seg Neutrophils # Man Lymphocytes # (Manual) Monocytes # (Manual) Eosinophils # (Manual) Basophils # (Manual) PT INR APTT D-Dimer Heparin Anti-Xa Level ABG pH ABG pO2 ABG HCO3 ABG O2 Saturation ABG Base Excess ABG Hemoglobin Oxyhemoglobin Sodium Potassium Chloride Carbon Dioxide BUN 34 H Creatinine 1.3 H Glucose 120 H POC Glucose 130 H Hemoglobin A1c Lactic Acid Calcium Phosphorus Magnesium Ferritin AST ALT Alkaline Phosphatase Lactate Dehydrogenase Troponin T C-Reactive Protein Total Protein Albumin LDL Cholesterol Direct Urine Creatinine Urine Total Protein Salicylates Acetaminophen Crossmatch Allied health notes reviewed: nursing
--- NOTE | 2021-12-19 12:48 | Operative Report ---
Operative Report Operative Report: EXAM: Tunneled catheter removal DATE: 12/19/2021 INDICATION: Permacath, end of therapy. MEDICATIONS: Please see nursing report for full details. SENIOR [employer] DEVELOPER: NAHEED WHYTE MD CONTRAST: None PROCEDURE: The risks, benefits, and alternatives were discussed. The patient was positioned with the head towards the contralateral side. The tunneled catheter was prepped and draped in a sterile fashion. Lidocaine was infiltrated at the dermatotomy site. Heparin was withdrawn from both lumens. Using a hemostat, blunt dissection was performed and the cuff was extracted. The catheter was extracted and pressure was held at the venotomy and dermatotomy site until hemostasis was achieved. Sterile bandage was then applied. The patient tolerated the procedure without issue. FINDINGS: Successful removal of the tunneled catheter. IMPRESSION: Successful removal of the right internal jugular tunneled catheter.
--- NOTE | 2021-12-19 14:36 | Event Note ---
Date: 12/19/21 I called patient's daughter Ms. Eva Brown at [phone] and informed her that Ms. Darlyn Salcedo is being discharged and advised her to talk to case management about the details of discharge plan.
--- NOTE | 2021-12-19 14:40 | Progress Note ---
Assessment and Plan Assessment and plan: Planned to discharge yesterday 12/18/2019, however patient had hyperkalemia, potassium 5.7 Nephrology evaluated, ordered stat hemodialysis, also recommended daily evaluation for daily need hemodialysis Discharge was held, closely monitor patient and adjust as needed --Acute kidney injury likely secondary to vasomotor nephropathy, hypernatremia On hemodialysis, patient received stat hemodialysis yesterday due to hyperkalemia Nephrology following, renal function better today, nephrology recommend daily monitoring And evaluation for HD as needed Possible discharge tomorrow if nephrology clears for discharge --Rectal bleeding /resolved Patient is on Eliquis, will hold Eliquis closely monitor H&H, Consult GI, transfuse PRBC as needed GI Dr. Flores evaluated the patient, advised bowel regimen s/p cardiac arrest, collapse at christianity, HFrEF, shock/hypotension resolved Atrial fibrillation/atrial flutter -Cardiac arrest and collapse at [facility]ianity with ROSC -Cardiology consulted, appreciate recommendations - S/p Cardizem gtt- d/c due to low EF; now on PO Amio -s/p vasopressor support with levophed -Echocardiogram shows left ventricular systolic function severely decreased, LVEF 25 to 30%, no pericardial effusion -proBNP 5622 -Continue Lasix 20 mg twice daily, BB, spironolactone, losartan -No significant volume overload clinically Acute hypoxic respiratory failure, right pneumothorax, Angioedema (resolved), pulmonary edema -[facility] consulted, appreciate recommendations -Intubated on 10/29 and extubated on 11/11 -Bipap q HS and prn, at high risk for KOLBY with morbid obesity -NC during day -s/p right chest tube for pneumothorax -s/p steroids for angioedema -On Lasix for pulmonary edema. Transaminitis likely shocked liver - resolved Shock cardiogenicsuspected sepsis -Fever was as high as 102 with a leukocytosis Blood, urine and sputum cultures negative -COVID-19 PCR negative -S/p empiric antibiotic therapy for possible pneumonia with Rocephin and azithromycin () -S/p Levophed gtt for hypotension -Fever and leukocytosis resolved -Monitor WBC and temperature curve Acute Metabolic encephalopathy, agitation/anxiety -Etiology likely from a cardiac arrest, shock and cerebral hypoperfusion CT head no acute focal parenchymal lesion in the brain -Neurology consulted, appreciate recommendations -EEG and MRI noted, Neuro recommend to cut down on sedation as possible Mental status significantly improved, currently fairly alert and oriented. Answers appropriately. Acute DVT in the left posterior tibial vein and bilateral peroneal veins, Anemia, retroperitoneal bleed -D-dimer greater than 10,000 -CTA chest with no evidence of PE -Bilateral lower extremity ultrasound positive for DVT -Heparin gtt on hold d/t anemia, received PRBC x4 -vasuclar surgery consulted, appreciate recommendations -recommended multiphasic CT angio of the abdomen and pelvis with and without contrast if H/H drops and did not recommend IVC filter at this time as the DVTs are infrapopliteal and recommends a follow-up DVT study weekly for 2 weeks. Repeat venous duplex ultrasound on 11/21 showed progression of left peroneal DVT extending into popliteal vein. Vascular surgery completed IVC filter placement on 11/22. -Trend CBC -SCDs to BLE while in bed -Transfuse hemoglobin less than 7 -Monitor for signs of bleeding -Hemoglobin stable, 8.6 Hypertension, not able be controlled Increase losartan 200 mg daily and add hydralazine as needed. Hyperglycemia ,resolved) -Avoid hypoglycemia -Hbg A1C 6.7 -SSI and lantus q hs (titrate as needed) -Accu-Cheks q. 6 Morbid obesity; BMI 37.0 High risk for KOLBY, On nightly BiPAP Deconditioning PT/OT ;per case management Multiple social issues Brief history and daily hospital course 66 YO Female with Obesity was attending christianity services when the patient collapsed and lost consciousness. Witnesses began CPR. EMS was notified and upon arrival the patient was found to be in distress without perfusing cardiac rhythm. Patient initiated on ACLS protocol and subsequently intubated in the field and transported to ED. The patient regained spontaneous circulation during transport. She was found to have acute hypoxemic respiratory failure, septic shock suspected secondary to aspiration pneumonia, metabolic acidosis, to xic metabolic encephalopathy, shock liver, and cardiac arrest with return of perfusing cardiac rhythm after initiation of ACLS protocol. Patient initiated on sepsis protocol as well as pneumonia protocol. Patient admitted to ICU. Patient improved, extubated on 11/11 and transferred to floor on 11/19. 10/30: Intubated and sedated, on fentanyl gtt. Open eyes spontaneously but does not follow any commands. On vasopressors, titrate as tolerated for MAP above 65. Patient febrile overnight, continue empiric IV Abx, culture data and COVID PCR pending. Patient is also s/p CT placement due to spontaneous pneumothorax. 2D echo is pending and Cardiology is consulted. 10/31: Patient remains intubated and following commands. Levophed drip stopped and potassium repleted. Patient started on tube feeding. Remains in soft bilateral restraints. 11/01: RN noted ST changes on BSM and 12 lead EKG obtained which showed ST. Given Ativan 1mg for agitation as she is maxed on fentanyl drip and IV push fentanyl did not seem to help. Patient was started on CPAP this morning by RT but remained on fentanyl drip and was having periods of apnea. Plan was to retry CPAP again in the p.m. with sedation off. 11/02: Rate increased r/t hypercapnea on ABG, sedation reduced. Given kionex for hyperkalemia and was started on levophed overnight for hypotension. 11/03: Overnight patient had tachycardia and was given Cardizem and Lopressor. Lopressor was repeated in the a.m. due to tachycardia. Patient will be started on amiodarone with a bolus per cardiology. Patient started on normal saline per liter per [facility] and steroids for angioedema. Noted to have bright red blood when suctioned from oh ETT. Remains on heparin drip as H/H is stable for now. Will reevaluate. Fentanyl drip was restarted last night due to agitation. Dr. Flores updated family today 11/04: Patient was sedated on fentanyl however off sedation is able to follow commands, a.m. labs completed in the p.m. and show hyperkalemia with increased renal function studies. Nephrology, neurology consulted by [facility]. Given Kayexalate, insulin and D50 for hyperkalemia. Patient remains on amiodarone. 11/05: Patient needed to be sedated on fentanyl again to today. overnight krishna was replaced. Hyperkalemia->given kionex 60 for 5.6. Repeat K 6-> Dr. Grant informed and requested bumex, kionex, insulin, d50, calcium gluconate and sodium bicarb with repeat BMP in 2 hours which were placed. HR remains elevated. 11/06: Patient remained in atrial fibrillation/atrial flutter with heart rate in the 150s despite being on amnio drip and was given amnio bolus, Cardizem bolus and started on Cardizem drip by cardiology. Patient is on beta-blockers p.o. scheduled and to feedings changed to Nepro. Kayexalate was given in the morning by nephrology due to hyperkalemia. 11/07: Patient is only responsive to mild stimuli, precedex added in an attempt to wean off fentanyl gtt to better assess her mental status. Neurology also on consult, pending MRI and EEG. Patient remains in Aflutter this am, HR in the 80 to 90s, still on amiodarone and heparin gtt. 11/08: Fentanyl gtt is off, only on precedex gtt. Patient is still not following any commands. MRI brain and EEG completed. Neuro recommendations noted, sedatives agents decreased. FWF added for hypernatremia and low K repleted, repeat labs ordered. Placed a call and spoke with patient's daughter, Eva Brown . She was updated on patient's conditions and status. All questions and concerns were voiced at this time. 11/09: Patient is awake and alert this am, following commands and appropriate. Remains on precedex gtt, plan for possible PST today. Hypertensive overnight, meds adjusted by Cardio and PRN Hydralazine added for SBP greater than 160. CT dislodged overnight, CXR is stable with no significant change. F/U CXR in the am. Patient's daughter, Eva Brown, visited with patient. She was updated on patient's status and goal of care for today. All questions and concerns were voiced at this time. 11/10: Mentation remains intact, still on precedex gtt. This am CXR noted still with fluid overload s/p X1 dose of IV lasix, good response from IV lasix overnight. Hypernatremia improved, D5W d/dayday. Still with persistent hypokalemia, continue electrolytes replacement and frequent lab check. Daily IV lasix and aldactone added by Cardio. Patient is also with persistent low grade fevers overnight, leukocytosis with mild improvement this am. Will get a repeat sputum culture, hold off on IV abx for now. Consider ID consult if fevers and leukocytosis persist. Patient tolerated PST X4hrs yesterday. PST again today, plan to wean to extubate if tolerated. 2/18: IMA overnight. Off precedex gtt and tolerated PST this am. Plan to wean to extubate today. Additional IV lasix given, plan to keep patient at a net negative balance for better lung compliance. F/U CXR in the am. K improved this am, repeat BMP this afternoon since diuresing. Remains with low grade fevers, leukocytosis downtrending, will continue to monitor. Speech/PT/OT ordered 11/12: S/p extubation, now stable on 3L NC. This am CXR noted with no significant changes, lasix changed to IV X4days BID. Drop in H&H this am, and Lt. flank ecchymosis noted. Heparin gtt on hold for now and orders placed for 1 unit of PRBCs and Ct Abd/Pelvis w/o con to r/o retroperitoneal bleed. Pending speech swallow eval, keep patient NPO for now. Patient is stable for IMCU status 11/13: Patient with increased WOB and tachycardia this am, patient was placed on Bipap and precedex gtt was resumed. CXR with mild improvement. CT Abd/Pelvis also reviewed large hematomas noted at the Lt. retroperitoneum and left posterior lateral abdominal wall. Heparin gtt is already on hold, patient is hemodynamically stable. Vascular Surgery consulted for possible IVC filter eval. Patient s/p 2units of PRBCs, will continue to trend H&H and transfuse if hbg is less than 7. Worsening renal function this am, IF diuretic on hold for now. Patient is also febrile with spike in wbcs most likely reactive to bleed, will panculture and hold off on IV Abx for now. Patient also failed speech bedside swallow eval yesterday, NGT in placed plan to resume enteral nutrition 11/14: Patient had bilateral lower extremity Doppler ultrasound and vascular surgery has recommended multiphasic CT angio of the abdomen and pelvis with and without contrast if H/H drops and does not recommend IVC filter at this time as the DVTs are infrapopliteal and recommends a DVT study weekly for 2 weeks. FWF 250 q4 ml per nephro. Started on as needed Xanax and p.o. amiodarone. She did not pass her ST evaluation today. Will be transferred to IMCU. 11/15: Resting comfortably on encounter. Speech cleared for pureed diet. Remains on 3l satting 98 % on bedside encounter. Does not appear to be in respiratory distress. Will continue to hold AC, No ivc filter planned at this time. qweekly doppler to monitor for migration of DVT per vascular. If demonstrated, will consider IVC filter. CBC ordered for tomorrow, will continue monitoring in light of retroperitoneal hematoma. FWF increased by nephrology to 350cc q4hr d/t hypernatremia. UOP/renal function both improved. D/w cardiology, will continue amiodorone an additional 24hrs. Plan to change dosing of metoprolol. Continue to wean off of precedex. Continue xanax scheduled for anxiety. physical therapy recs noted, fernanda / ltac will discuss with CM. Continue IMCU monitoring. 11/16: Pulmonary congestion this AM. CXR ordered. Lasix 40 mg IV x 1 order this AM. Will monitor for 24 hrs. potential downgrade to medical floor tomorrow. 11/17: Persisting pulmonary congestion, was on bipap overnight into this AM. Will order additional lasix 40 mg IV x 2. CXR ordered for AM. Possible downgrade to floor tomorrow. Anticipate d/c sunday. 11/18: Patient seen and examined, continue weaning, will continue diuresis BID, discussed with daughter. 11/19: Patient seen and examined this morning doing well no acute distress noted. Lasix was increased to twice daily to 20 mg IV. Clinically improving. Patient will be transferred to telemetry today can be switched to Lasix p.o. twice daily in a.m. She has her weekly Doppler of lower extremity tomorrow vascular is following for this. She was taken off anticoagulation secondary to retroperitoneal bleed., The anticoagulation was started initially for atrial fibrillation and an infrapopliteal DVT. During her hospital stay she had a prolonged ventilator management and was successfully weaned off. She also received a total of 4 units of packed red blood cell. Hemoglobin has remained stable. Anticipate discharge in next 48 hours if continues to clinically stay stable. : Transferred from ICU on 11/19. Progressive improving. Currently awake and oriented. O2 weaned to 4 L. Hemodynamically stable. BP control being optimized. MiraLAX for constipation. Hemoglobin stable on the heparin infusio n, being monitored closely with history of retroperitoneal bleed. 11/21: Patient remains mostly bedridden. She is awake and oriented on 2 L of O2. Repeat ultrasound showed extension of left peroneal DVT into popliteal vein. Heparin was discontinued for significant retroperitoneal bleed and off an ticoagulation since. Vascular surgery plan for placement of IVC filter tomorrow. Patient is chest pains, palpitations, hemoptysis. She has some cough. Left lower extremity pain likely from DVT better today. Discussed with the patient, nursing staff and vascular surgery. 11/22: The infrapopliteal vein thrombosis has propagated to the left popliteal vein. Vascular surgery to perform IVC filter placement today. 11/23: Vascular surgery placed IVC filter yesterday. Continue metoprolol 100 mg p.o. twice daily, Aldactone 25 mg p.o. daily and losartan 25 mg p.o. daily. Patient still requiring BiPAP (IPAP18, EPAP8) with FiO2 of 30%. Continue to wean oxygen per pulmonary recommendations. Nurse reports patient is having vaginal bleeding. We will check serial CBC and pelvic ultrasound 11/24: I discussed with cardiology yesterday the need for a LifeVest. LifeVest is ordered and pending. Patient is s/p IVC filter placement. Continue metoprolol 100 mg p.o. twice daily, Aldactone 25 mg p.o. daily and losartan 25 mg p.o. daily. Patient still requiring BiPAP (IPAP18, EPAP8) with FiO2 of 30%. Continue to wean oxygen per pulmonary recommendations. No further reports of vaginal bleeding. Pelvic ultrasound negative 11/25: Awaiting for LifeVest. Patient is s/p IVC filter placement. Continue metoprolol 100 mg p.o. twice daily, Aldactone 25 mg p.o. daily and losartan 25 mg p.o. daily. Patient still requiring BiPAP (IPAP18, EPAP8) with FiO2 of 30%. Continue to wean oxygen per pulmonary recommendations. 11/26: Physical therapy recommends subacute rehab. Still awaiting LifeVest. Patient is s/p IVC filter placement. Continue metoprolol 100 mg p.o. twice daily, Aldactone 25 mg p.o. daily and losartan 25 mg p.o. daily. Patient still requiring BiPAP (IPAP18, EPAP8) with FiO2 of 30% at night. Continue to wean oxygen per pulmonary recommendations. Patient currently with 2 L O2. 11/27: Physical therapy recommends subacute rehab. Patient has a LifeVest. Patient's left lower extremity pain likely related to DVT. Continue pain control. Continue metoprolol 100 mg p.o. twice daily, Aldactone 25 mg p.o. daily and losartan 25 mg p.o. daily. Patient still requiring BiPAP (IPAP18, EPAP8) with FiO2 of 30% at night. 11/28: Physical therapy recommends subacute rehab. Patient has a LifeVest. Patient continues to complain of left lower extremity pain which makes it very difficult for ambulation. Continue Percocet for pain control. Add neurontin for possible neuropathy. Etiology is likely secondary to DVT. Continue metoprolol 100 mg p.o. twice daily, Aldactone 25 mg p.o. daily and losartan 25 mg p.o. daily. Patient still requiring BiPAP (IPAP18, EPAP8) with FiO2 of 30% at night. Repeated Doppler US of LLE and will ask vascular surgery to revisit. 11/29; worsening lower extremity DVTs, vascular following, on heparin drip 11/30; low-grade fever, leukocytosis, shortness of breath, chest x-ray possible left-sided pneumonia/possible healthcare associated pneumonia Blood cultures already sent, empiric antibiotic cefepime[renal dose confirmed with pharmacist] ID consult if needed 12/01; gram-positive bacteremia preliminary, add vancomycin 1 dose, repeat cultures, consult ID Worsening renal function, nephrology initiated hemodialysis today, patient is critically ill, very poor prognosis, with multiple comorbidities And critical issues. Paid Internship recommendations noted and appreciated 12/02; Gram positive bacteremia/possible HCAP and sepsis, on cefepime and 1 dose Vanco. Nephrology initiated hemodialysis, ID consult. Patient is hypotensive, pulmonary critical recommended transfer to ICU and start vasopressors for close observation overnight. Dr. Padron discussed with patient's daughter over patient's telephone and discussed in detail patient's condition, new developments sepsis, renal failure on hemodialysis anticoagulation for DVT and s evere cardiomyopathy, also discussed poor prognosis, and the plans of transferring the patient to ICU for close observation. Many questions, and answered all of them. dr. Padron also discussed with granddaughter at the bedside and patient was moved to ICU, She had numerous questions answered all of them and discussed the current condition prognosis and treatment plan. She verbalized understanding 12/03: Patient was transferred to ICU yesterday evening for hypotension however she did not need to be started on any vasopressin therapy. Patient is on p.o. midodrine and all her antihypertensives have been held. She also received albumin bolus. Patient will be transferred to the floor today. Still complains of bilateral lower extremity pain. Patient is on cefepime and she is scheduled for dialysis today. 12/04: Some complaint of leg pain. Percocet given for pain control. Patient is very deconditioned, will need aggressive PT. Will work on d/c planning with cm. 12/05: Patient does not appear to be in distress this AM. tachycardic hr on encounter and overnight, was given diltiazem by meat grinder. Cardiology initiated metoprolol and amiodorone on patient this morning. She denies any pain except for discomfort in left lower extremity. Controlled with percocet. She also states that she does not have any urine output and has been constipated. Will order bowel regimen. Discharge needs discussed with CM which include Lifevest, BIPAP for nightly use, and possible set up for dialysis. She was visiting on a visa to the from [place] however is technically a citizen of [place] which makes placement a continued challenge. 12/06: Case management reports patient will need LifeVest, walker, CPAP and arrangements for outpatient hemodialysis. However, patient is uninsured. I discussed with the daughter Eva plans for home hospice. Eva reports that she is willing to have hospice to obtain additional resources but is not wanting palliative care/comfort measures. 12/07: Awaiting LifeVest and outpatient HD arrangements. I d/w CM discharge planning. Pt still with heparin drip but amiodarone changed to p.o. 200mg BID. Cont. Metoprolol 50mg BID. Hold LAYO and ARB for renal fxn. Patient for outpatient ischemic evaluation per Cardiology. Leukocytosis likely related to retroperitoneal hematoma. ID wants to monitor off abx. 12/08: Awaiting LifeVest and outpatient HD arrangements. I d/w CM discharge planning. Pt still with heparin drip. Await cardiology recommendations to transition to p.o. anticoagulation. Patient for outpatient ischemic evaluation per Cardiology. Leukocytosis likely related to retroperitoneal hematoma. Continue to monitor off antibiotics. Continue volume management per nephrology with hemodialysis 12/09: Patient with PermCath placement today. Nephrology reports patient hypotensive during hemodialysis and started 10 mg of midodrine for hypotension. Losartan discontinued. Continue to obtain daily weights and Strict I/O's. Eunice lly dose medications and avoid nephrotoxic agents. Patient for outpatient ischemic evaluation per Cardiology. Leukocytosis likely related to retroperitoneal hematoma. Continue to monitor off antibiotics. Awaiting LifeVest and outpatient HD arrangements. 12/10: Continue hemodialysis per nephrology recommendations. We will discontinue heparin drip and start Eliquis 5 mg p.o. twice daily for anticoagulation. Blood pressure appears to be improved. Continue midodrine. Continue to obtain daily weights and Strict I/O's. Renally dose medications and avoid nephrotoxic agents. Patient for outpatient ischemic evaluation per Cardiology. Leukocytosis likely related to retroperitoneal hematoma. Continue to monitor off antibiotics. Awaiting LifeVest and outpatient HD arrangements. 12/11: Cardiology plans for Lexiscan in a.m. Continue hemodialysis per nephrology recommendations. We will discontinue heparin drip and start Eliquis 5 mg p.o. twice daily for anticoagulation. Blood pressure appears to be improved. Continue midodrine. Continue to obtain daily weights and Strict I/O's. Renally dose medications and avoid nephrotoxic agents. 12/12: Lexiscan this morning per cardiology. Continue hemodialysis per nephrology recommendations. Continue Eliquis for anticoagulation. Continue midodrine. Continue to obtain daily weights and Strict I/O's. Renally dose medications and avoid nephrotoxic agents. 12/14; Lexiscan test yesterday was negative for ischemia, patient receiving physi fermin therapy, hemodialysis DC planning per case management. Hospice placement, multiple social issues 3;24; received 1 unit PRBC transfusion as patient has anemia with hemoglobin of 6.9 follow H&H and transfuse additional PRBC as needed DC planning per case management 3;25; patient had episode of rectal bleeding/melena this afternoon, patient received 1 unit PRBC yesterday for hemoglobin of 6.9 which improved to 8.2 Closely monitor H&H and transfuse additional PRBC as needed, GI consulted[disc ussed with Dr. Austyn Saleh] Hold Eliquis, I discussed in detail with the patient and her daughter about her recent benefits and consequences of holding Eliquis in the setting of DVT and A. fib due to severe bleeding, they verbalized understanding, patient does not have new episodes of bleeding we will resume Eliquis and closely monitor 12/17; patient did not have any new episodes of rectal bleeding, hemoglobin and hematocrit is stable, initially planning to discharge the patient home, however patient had hyperkalemia, nephrology scheduled for stat hemodialysis today, they wanted to closely monitor. Possible discharge in 1 to 2 days if cleared by nephrology. 12/18; patient's renal function is better today, no dialysis, hemoglobin above 8, hemodynamically stable Possible discharge tomorrow if patient is stable and cleared by nephrology 12/19; patient is being discharged home today, discussed with case management team, discussed with other consultants who cleared. Discussed with patient's daughter Ms. Eva Brown. History Interval history: I have seen and examined the patient at the bedside Patient's chart and medications reviewed Patient feels slightly better Complains of generalized weakness vital signs noted Hospitalist Physical - Constitutional Vitals: Temp Pulse Resp BP Pulse Ox 98.8 F 96 H 18 140/86 97 12/19/21 08:10 12/19/21 10:00 12/19/21 10:00 12/19/21 08:10 12/19/21 11:51 General appearance: Present: no acute distress, well-nourished, obese (Morbidly obese), other (Minimally communicative) - EENT Eyes: Present: PERRL, EOM intact - Neck Neck: Present: supple, normal ROM - Respiratory Respiratory effort: normal Respiratory: bilateral: diminished, rhonchi, negative: rales, wheezing - Cardiovascular Rhythm: regular Heart Sounds: Present: S1 & S2 - Extremities Extremities: no ischemia, No edema - Abdominal General gastrointestinal: soft, non-tender, non-distended - Integumentary Integumentary: Present: clear, warm - Psychiatric Psychiatric: appropriate mood/affect, cooperative - Neurologic Neurologic: CNII-XII intact, moves all extremities HEART Score - HEART Score Troponin: Troponin T 1.150 ng/mL (0.00-0.029) H* D 10/29/21 22:34 Results - Labs CBC & Chem 7: 12/20/21 05:22 12/20/21 05:22 Labs: Laboratory Last Values WBC 6.6 K/mm3 (4.5-11.0) 12/18/21 05:32 RBC 2.85 M/mm3 (3.65-5.03) L 12/18/21 05:32 Hgb 8.4 gm/dl (10.1-14.3) L 12/18/21 05:32 Hct 27.0 % (30.3-42.9) L 12/18/21 05:32 MCV 95 fl (79-97) 12/18/21 05:32 MCH 29 pg (28-32) 12/18/21 05:32 MCHC 31 % (30-34) 12/18/21 05:32 RDW 20.2 % (13.2-15.2) H 12/18/21 05:32 Plt Count 180 K/mm3 (140-440) 12/18/21 05:32 Lymph % (Auto) 16.9 % (13.4-35.0) 12/17/21 05:59 [place] % (Auto) 15.4 % (0.0-7.3) H 12/17/21 05:59 Eos % (Auto) 2.2 % (0.0-4.3) 12/17/21 05:59 Baso % (Auto) 1.2 % (0.0-1.8) 12/17/21 05:59 Lymph # (Auto) 1.2 K/mm3 (1.2-5.4) 12/17/21 05:59 [place] # (Auto) 1.1 K/mm3 (0.0-0.8) H 12/17/21 05:59 Eos # (Auto) 0.2 K/mm3 (0.0-0.4) 12/17/21 05:59 Baso # (Auto) 0.1 K/mm3 (0.0-0.1) 12/17/21 05:59 Add Manual Diff Complete 12/10/21 05:22 Total Counted 100 12/10/21 05:22 Seg Neutrophils % 64.3 % (40.0-70.0) 12/17/21 05:59 Seg Neuts % (Manual) 73.0 % (40.0-70.0) H 12/10/21 05:22 Band Neutrophils % 12.0 % 12/10/21 05:22 Lymphocytes % (Manual) 7.0 % (13.4-35.0) L 12/10/21 05:22 Reactive Lymphs % (Man) 0 % 12/10/21 05:22 Monocytes % (Manual) 1.0 % (0.0-7.3) 12/10/21 05:22 Eosinophils % (Manual) 1.0 % (0.0-4.3) 12/10/21 05:22 Basophils % (Manual) 2.0 % (0.0-1.8) H 12/10/21 05:22 Metamyelocytes % 0 % 12/10/21 05:22 Myelocytes % 4.0 % 12/10/21 05:22 Promyelocytes % 0 % 12/10/21 05:22 Blast Cells % 0 % 12/10/21 05:22 Nucleated RBC % 1.0 % (0.0-0.9) H 12/10/21 05:22 Seg Neutrophils # 4.6 K/mm3 (1.8-7.7) 12/17/21 05:59 Seg Neutrophils # Man 10.6 K/mm3 (1.8-7.7) H 12/10/21 05:22 Band Neutrophils # 1.7 K/mm3 12/10/21 05:22 Lymphocytes # (Manual) 1.0 K/mm3 (1.2-5.4) L 12/10/21 05:22 Abs React Lymphs (Man) 0.0 K/mm3 12/10/21 05:22 Monocytes # (Manual) 0.1 K/mm3 (0.0-0.8) 12/10/21 05:22 Eosinophils # (Manual) 0.1 K/mm3 (0.0-0.4) 12/10/21 05:22 Basophils # (Manual) 0.3 K/mm3 (0.0-0.1) H 12/10/21 05:22 Metamyelocytes # 0.0 K/mm3 12/10/21 05:22 Myelocytes # 0.6 K/mm3 12/10/21 05:22 Promyelocytes # 0.0 K/mm3 12/10/21 05:22 Blast Cells # 0.0 K/mm3 12/10/21 05:22 WBC Morphology Not Reportable 12/10/21 05:22 Hypersegmented Neuts Not Reportable 12/10/21 05:22 Hyposegmented Neuts Not Reportable 12/10/21 05:22 Hypogranular Neuts Not Reportable 12/10/21 05:22 Smudge Cells Not Reportable 12/10/21 05:22 Toxic Granulation Not Reportable 12/10/21 05:22 Toxic Vacuolation Not Reportable 12/10/21 05:22 Dohle Bodies Not Reportable 12/10/21 05:22 Pelger-Huet Anomaly Not Reportable 12/10/21 05:22 Manny Rods Not Reportable 12/10/21 05:22 Platelet Estimate Consistent w auto 12/10/21 05:22 Clumped Platelets Not Reportable 12/10/21 05:22 Plt Clumps, EDTA Not Reportable 12/10/21 05:22 Large Platelets Not Reportable 12/10/21 05:22 Giant Platelets Not Reportable 12/10/21 05:22 Platelet Satelliting Not Reportable 12/10/21 05:22 Plt Morphology Comment Not Reportable 12/10/21 05:22 RBC Morphology Not Reportable 12/10/21 05:22 Dimorphic RBCs Not Reportable 12/10/21 05:22 Polychromasia Not Reportable 12/10/21 05:22 Hypochromasia 1+ 12/10/21 05:22 Poikilocytosis Not Reportable 12/10/21 05:22 Anisocytosis 1+ 12/10/21 05:22 Microcytosis Not Reportable 12/10/21 05:22 Macrocytosis Not Reportable 12/10/21 05:22 Spherocytes Not Reportable 12/10/21 05:22 Pappenheimer Bodies Not Reportable 12/10/21 05:22 Sickle Cells Not Reportable 12/10/21 05:22 Target Cells Not Reportable 12/10/21 05:22 Tear Drop Cells Not Reportable 12/10/21 05:22 Ovalocytes Not Reportable 12/10/21 05:22 Helmet Cells Not Reportable 12/10/21 05:22 Maradiaga-Lutcher Bodies Not Reportable 12/10/21 05:22 [place] Rings Not Reportable 12/10/21 05:22 Catarina Cells Not Reportable 12/10/21 05:22 Bite Cells Not Reportable 12/10/21 05:22 Crenated Cell Not Reportable 12/10/21 05:22 Elliptocytes Not Reportable 12/10/21 05:22 Acanthocytes (Spur) Not Reportable 12/10/21 05:22 Rouleaux Not Reportable 12/10/21 05:22 Hemoglobin C Crystals Not Reportable 12/10/21 05:22 Schistocytes Not Reportable 12/10/21 05:22 Malaria parasites Not Reportable 12/10/21 05:22 Magdy Bodies Not Reportable 12/10/21 05:22 Hem Pathologist Commnt No 12/10/21 05:22 PT 16.8 Sec. (12.2-14.9) H 12/16/21 21:05 INR 1.22 (0.87-1.13) H 12/16/21 21:05 APTT 32.2 Sec. (24.2-36.6) 12/16/21 21:05 D-Dimer > 97469 ng/mlDDU (0-234) H 10/30/21 Unknown Heparin Anti-Xa Level Cancelled 12/11/21 13:08 ABG pH 7.333 pH Units (7.350-7.450) L 12/12/21 14:10 ABG pCO2 50.1 mm Hg 12/12/21 14:10 ABG pO2 57.0 mm Hg (80.0-90.0) L 12/12/21 14:10 ABG HCO3 26.0 mmol/L (20.0-26.0) 12/12/21 14:10 ABG O2 Saturation 88.0 % (95.0-99.0) L 12/12/21 14:10 ABG O2 Content 9.1 (0.0-44) 12/12/21 14:10 ABG Base Excess 0.0 mmol/L (-2.0-3.0) 12/12/21 14:10 ABG Hemoglobin 7.6 gm/dl (12.0-16.0) L 12/12/21 14:10 ABG Carboxyhemoglobin 2.2 % (0.0-5.0) 12/12/21 14:10 ABG Methemoglobin 0.7 % (0.0-1.5) 12/12/21 14:10 Oxyhemoglobin 85.4 % (95.0-99.0) L 12/12/21 14:10 FiO2 21 % 12/12/21 14:10 Sodium 138 mmol/L (137-145) 12/19/21 04:38 Potassium 5.0 mmol/L (3.6-5.0) 12/19/21 04:38 Chloride 102.3 mmol/L (98-107) 12/19/21 04:38 Carbon Dioxide 26 mmol/L (22-30) 12/19/21 04:38 Anion Gap 15 mmol/L 12/19/21 04:38 BUN 34 mg/dL (7-17) H 12/19/21 04:38 Creatinine 1.3 mg/dL (0.6-1.2) H 12/19/21 04:38 Estimated GFR 49 ml/min 12/19/21 04:38 BUN/Creatinine Ratio 26 % 12/19/21 04:38 Glucose 120 mg/dL (65-100) H 12/19/21 04:38 POC Glucose 130 mg/dL (70-105) H 12/18/21 22:48 Hemoglobin A1c 6.7 % (4-6) H 10/31/21 04:30 Lactic Acid 0.70 mmol/L (0.7-2.0) 10/31/21 15:45 Calcium 9.1 mg/dL (8.4-10.2) 12/19/21 04:38 Phosphorus 5.20 mg/dL (2.5-4.5) H 12/02/21 03:22 Magnesium 1.60 mg/dL (1.7-2.3) L 11/19/21 14:38 Ferritin 208.4 ng/mL (10.0-200.0) H 10/30/21 Unknown Total Bilirubin 0.40 mg/dL (0.1-1.2) 12/14/21 06:36 Direct Bilirubin < 0.2 mg/dL (0-0.2) 12/14/21 06:36 Indirect Bilirubin 0.2 mg/dL 12/14/21 06:36 AST 12 units/L (5-40) 12/14/21 06:36 ALT < 5 units/L (7-56) L 12/14/21 06:36 Alkaline Phosphatase 81 units/L (35-129) 12/14/21 06:36 Ammonia 31.0 umol/L (25-60) 10/29/21 15:10 Lactate Dehydrogenase 469 units/L (91-180) H 10/30/21 Unknown Troponin T 1.150 ng/mL (0.00-0.029) H* D 10/29/21 22:34 C-Reactive Protein 13.40 mg/dL (0.00-1.30) H 10/30/21 Unknown Total Protein 6.0 g/dL (6.3-8.2) L 12/14/21 06:36 Albumin 3.0 g/dL (3.9-5) L 12/14/21 06:36 Albumin/Globulin Ratio 1.0 % 12/14/21 06:36 Triglycerides 68 mg/dL (2-149) 10/29/21 19:40 Cholesterol 98 mg/dL (50-199) 10/29/21 19:40 LDL Cholesterol Direct 43 mg/dL (50-130) L 10/29/21 19:40 HDL Cholesterol 50 mg/dL (40-59) 10/29/21 19:40 Cholesterol/HDL Ratio 1.96 % 10/29/21 19:40 Procalcitonin 61.95 ng/mL (<0.15) 10/30/21 Unknown TSH 3.080 mlU/mL (0.270-4.200) 10/29/21 15:10 Urine Color Yellow (Yellow) 11/13/21 08:30 Urine Turbidity Slightly-cloudy (Clear) 11/13/21 08:30 Urine pH 6.0 (5.0-7.0) 11/13/21 08:30 Ur Specific [place] 1.010 (1.003-1.030) 11/13/21 08:30 Urine Protein <15 mg/dl mg/dL (Negative) 11/13/21 08:30 Urine Glucose (UA) Neg mg/dL (Negative) 11/13/21 08:30 Urine Ketones Tr mg/dL (Negative) 11/13/21 08:30 Urine Blood Sm (Negative) 11/13/21 08:30 Urine Nitrite Neg (Negative) 11/13/21 08:30 Urine Bilirubin Neg (Negative) 11/13/21 08:30 Urine Urobilinogen < 2.0 mg/dL (<2.0) 11/13/21 08:30 Ur Leukocyte Esterase Neg (Negative) 11/13/21 08:30 Urine WBC (Auto) < 1.0 /HPF (0.0-6.0) 11/13/21 08:30 Urine RBC (Auto) < 1.0 /HPF (0.0-6.0) 11/13/21 08:30 U Epithel Cells (Auto) < 1.0 /HPF (0-13.0) 11/13/21 08:30 Urine Mucus Few /HPF 10/29/21 18:15 Urine Eosinophils None seen (None Seen) 11/04/21 Unknown Urine Creatinine 190.9 mg/dL (0.1-20.0) H 11/04/21 Unknown Protein/Creatinin Ratio 0.90 11/04/21 Unknown Urine Sodium 10 mmol/L 11/04/21 Unknown Urine Total Protein 172 mg/dL (5-11.8) H 11/04/21 Unknown Salicylates < 0.3 mg/dL (2.8-20.0) L 10/29/21 15:10 Urine Opiates Screen Negative 10/29/21 18:15 Urine Methadone Screen Negative 10/29/21 18:15 Acetaminophen 5.0 ug/mL (10.0-30.0) L 10/29/21 15:10 Ur Barbiturates Screen Negative 10/29/21 18:15 Ur Phencyclidine Scrn Negative 10/29/21 18:15 Ur Amphetamines Screen Negative 10/29/21 18:15 U Benzodiazepines Scrn Negative 10/29/21 18:15 Urine Cocaine Screen Negative 10/29/21 18:15 U Marijuana (THC) Screen Negative 10/29/21 18:15 Drugs of Abuse Note Disclamer 10/29/21 18:15 Plasma/Serum Alcohol < 0.01 % (0-0.07) 10/29/21 15:10 Coronavirus (PCR) Negative (Negative) 10/30/21 Unknown Hepatitis A IgM Ab Non-reactive (NonReactive) 12/01/21 19:36 Hep Bs Antigen Non-reactive (Negative) 12/01/21 19:36 Hep B Core IgM Ab Non-reactive (NonReactive) 12/01/21 19:36 Hepatitis C Antibody Non-reactive (NonReactive) 12/01/21 19:36 Blood Type O POSITIVE 12/15/21 12:08 Antibody Screen Negative 12/15/21 12:08 Crossmatch See Detail 12/15/21 12:08 Krishna/IV: Voiding Method External Female Catheter Active Medications - Current Medications Current Medications: Generic Name Dose Route Start Last Admin Trade Name Freq PRN Reason Stop Dose Admin Acetaminophen 650 mg 10/29/21 17:04 11/12/21 22:53 Acetaminophen 650 Mg Rect Supp MD 650 mg Q6H PRN Administration Pain MILD(1-3)/Fever >100.5/NIEVES Acetaminophen 650 mg 11/19/21 16:35 12/12/21 15:55 Acetaminophen 325 Mg Tab PO 650 mg Q6HR PRN Administration PAIN Albumin Human 50 gm 12/02/21 11:00 12/15/21 13:00 Albumin Human 25% (25 Gm/100 Ml) Inj IV 50 gm ZACH PRN Administration Hypotension Alprazolam 0.25 mg 11/14/21 14:29 12/15/21 11:02 Alprazolam 0.25 Mg Tab PO 0.25 mg Q8H PRN Administration Anxiety Amiodarone HCl 200 mg 12/13/21 22:00 12/19/21 09:37 Amiodarone 200 Mg Tab PO 200 mg BID RAMON Administration Apixaban 5 mg 12/16/21 22:00 12/19/21 09:38 Apixaban 5 Mg Tab PO 5 mg Q12HR RAMON Administration Protocol Docusate Sodium 100 mg 11/18/21 15:00 12/19/21 09:37 Docusate Sodium 100 Mg Cap PO 100 mg BID RAMON Administration Epoetin [place]-epbx 10,000 unit 12/06/21 10:00 12/15/21 15:15 Epoetin [place]-Epbx 10,000 Unit/1 Ml Vial IV 10,000 unit ZACH PRN Administration hemodialysis Famotidine 10 mg 11/06/21 10:00 12/19/21 09:38 Famotidine 10 Mg Tab PO 10 mg BID RAMON Administration Gabapentin 100 mg 11/28/21 14:00 12/19/21 14:09 Gabapentin 100 Mg Cap PO 100 mg Q8HR RAMON Administration Hydrophilic Ointment 1 applic 10/29/21 14:29 11/09/21 08:51 Lip Therapy Vaseline TP 1 applic Q2HR PRN Administration Dry Lips Sodium Chloride 100 mls @ 999 mls/hr 12/01/21 14:44 Nacl 0.9% IV ZACH PRN Hypotension Sodium Chloride 500 mls @ 0 mls/hr 12/15/21 11:54 Nacl 0.9% 500 Ml IV ONCE RAMON As Directed Sodium Chloride 100 mls @ 999 mls/hr 12/17/21 08:21 Nacl 0.9% IV ZACH PRN Hypotension Insulin Human Lispro 0 unit 11/25/21 22:00 12/19/21 14:09 Insulin Lispro 100 Unit/Ml SUB-Q Not Given ACHS [facility] Protocol Lactulose 20 gm 11/18/21 14:43 12/06/21 15:26 Lactulose 20 Gm/30 Ml Oral Liqd PO 20 gm Q6H PRN Administration Constipation Magnesium Hydroxide 30 ml 12/16/21 11:00 12/18/21 21:17 Magnesium Hydroxide (Mom) Oral Liqd Udc PO 30 ml Q4H PRN Administration Constipation Melatonin 10 mg 11/22/21 17:31 12/13/21 22:09 Melatonin 5 Mg Tab PO 10 mg QHS PRN Administration Sleep Metoprolol Tartrate 100 mg 12/07/21 11:00 12/19/21 09:37 Metoprolol Tartrate 50 Mg Tab PO 100 mg BID RAMON Administration Midodrine 10 mg 12/01/21 12:00 12/19/21 14:09 Midodrine 5 Mg Tab PO Not Given TID@0800,1200,1600 [facility] Morphine Sulfate 1 mg 11/28/21 15:00 12/10/21 16:34 Morphine 2 Mg/1 Ml Inj IV 1 mg Q4H PRN Administration Pain, Moderate (4-6) Multi-Ingred Cream/Lotion/Oil/Oint 1 applic 10/29/21 14:29 11/06/21 09:25 Mineral Oil/Petrolatum, White Ophth Oint 3.5 Gm OU 1 applic Q4HR PRN Administration Dry Eye(s) Oxycodone/Acetaminophen 1 tab 11/27/21 14:31 12/17/21 22:32 Oxycodone /Acetaminophen 5-325mg Tab PO 1 tab Q4H PRN Administration Pain, Moderate (4-6) Polyethylene Glycol 17 gm 11/20/21 12:47 12/08/21 09:54 Polyethylene Glycol 3350 17 Gm Powder PO 17 gm QDAY PRN Administration Constipation Sodium Chloride 10 ml 10/29/21 22:00 12/19/21 09:39 Sodium Chloride 0.9% 10 Ml Flush Syringe IV 10 ml BID RAMON Administration Sodium Chloride 10 ml 10/29/21 17:04 Sodium Chloride 0.9% 10 Ml Flush Syringe IV PRN PRN LINE FLUSH Nutrition/Malnutrition Assess - Dietary Evaluation Nutrition/Malnutrition Findings: Nutrition Notes Start: 10/30/21 09:50 Freq: Status: Active Protocol: Document 12/14/21 17:12 MEENU (Rec: 12/14/21 17:44 MEENU [id number]) Nutrition Notes Initial or Follow up Reassessment Current Diagnosis Acute Kidney Injury,Sepsis, Hypertension,Respiratory Failure Other Pertinent Diagnosis s/p Cardiopulmonary Arrest, Anemia, SIERRA/CKD+HD prn, Pneumonia, Hyponatremia Current Diet Renal Diet (since B 12/14). Labs/Tests 12/14: Na 132, BUN 43, Crea 1. 9. Pertinent Medications 12/14: Albumin 50 gm, others nutritionally unremarkable. Height 5 ft 10 in Weight 117.6 kg [place] Body Weight (kg) 68.18 BMI 37.2 Weight change and time frame 2.8 Kg body weigh gain reported in 9 days. Weight Status Obese Subjective/Other Information RD consult for routine F/U on Dietary tolerance. No indication for Mechanical Soft diet found, I discontinued the indication, will assess at F/U. RN note 12/13: Assist with dinner. eat 40% of meal. Per MD, fluid restriction to 1 ,000 ml/day, according to Progress note. Percent of energy/protein needs met: Prescribed Renal Diet provides for energy/protein needs (2, 072 Kcal/77 g) during LOS. Burn Absent Trauma Absent GI Symptoms None Food Allergy No Skin Integrity/Comment Assessment WNL. Current % PO Poor (25-49%) Minimum of two criteria No #1 Nutrition Diagnosis Inadequate oral intake Comments: Pt's PO intake of meals has been at 40%, and well tolerated, according to RN notes. Diet advanced to Renal. Diagnosis Progress(for reassessment Continues documentation) Is patient on ventilator? No Is Patient Ambulatory and/or Out of Bed No REE-([facility]-confined to bed) 2154.516 Kcal/Kg value to use for calculation 14 Approximate Energy Requirements Using 1646 kcal/Kg Calculation Used for Recommendations Kcal/kg Additional Notes Protein: >1.2 g/Kg AdjBW; >110 g/day. Fluids: 1-1.5 L/day, or as per MD. Nutrition Intervention Change Diet Order: Resume Renal Diet. Add Supplement/Snack (indicate name/kcal 8 fl oz nepro w/CARBSTEADY; /protein ) BID. Provides kCal: 850 Provides Protein (gm) 38 Goal #1 Compensate, through dietary supplementation, for possible poor or insufficient PO intake of meals during LOS. Goal #2 Maintain body weight within +/ -3% of admission body weight during LOS. Follow-Up By: 12/21/21 Additional Comments Continue monitoring food tolerance, %PO intake of meals , and BM.
[2021-12-19] MEDS: ACETAMINOPHEN 325 MG TAB PO PRN (21:32)
[2021-12-20 06:03] LABS: Hematocrit 26.9 % (30.3-42.9); Hemoglobin 8.5 gm/dl (10.1-14.3); Mean Corpuscular HGB Conc 32 % (30-34); Mean Corpuscular Volume 94 fl (79-97); Platelet Count 241 K/mm3 (140-440); Red Blood Count 2.86 M/mm3 (3.65-5.03)
[2021-12-20 06:04] LABS: Red Cell Distribution Width 20.3 % (13.2-15.2)
[2021-12-20 06:23] LABS: Calcium 9.6 mg/dL (8.4-10.2)
[2021-12-20] MEDS: GABAPENTIN 100 MG CAP PO SCH ×3 (06:35→21:56)
--- NOTE | 2021-12-20 10:04 | Discharge Summary ---
Providers - Providers Date of Admission: 10/29/21 17:04 Attending physician: SAM COLE 10/29/21 14:29 Consult to Physician [CONS] Stat Comment: noted Consulting Provider: BETHANY INMAN Physician Instructions: Reason For Exam: cardiac arrestn w rosc 10/30/21 07:43 Consult to Physician [CONS] Routine Comment: called answ. serv./ ирина Consulting Provider: SHIRIN CUTLER Physician Instructions: Reason For Exam: S/p Cardiac Arrest 10/31/21 08:56 Consult to Dietitian/Nutrition [CONS] Routine Physician Instructions: Assess nutrtn needs, initiate, modify, manage TF Reason For Exam: Reason for Consult: Write/Manage Tube Feeding Reason for Consult: Write/Manage Tube Feeding 11/04/21 13:13 Consult to Physician [CONS] Routine Comment: Consulting Provider: DHRUV GONSALEZ Physician Instructions: Reason For Exam: [place] 11/04/21 14:18 Consult to Physician [CONS] Routine Comment: Consulting Provider: ELVIRA EDWARDS Physician Instructions: Reason For Exam: AMS s/p Cardiac arrest 11/11/21 13:15 Midline [Consult to PICC Line RN] [CONS] Routine Reason For Exam: PIV neededf to D/C Central Line Type Line:: Midline 11/11/21 13:16 Speech Therapy Evaluation and Treat [CONS] Routine Reason For Exam: Post Extubation 11/11/21 14:17 Occupational Therapy Evaluate and Treat [CONS] Routine Comment: Reason For Exam: Debility Physical Therapy Evaluation and Treat [CONS] Routine Comment: Reason For Exam: Eval and Treat 11/12/21 16:44 Consult to Physician [CONS] Routine Comment: Consulting Provider: NAHEED WHYTE Physician Instructions: Reason For Exam: IVC FILTER EVAL 11/30/21 14:11 Consult to Physician [CONS] Routine Comment: Consulting Provider: RUFINO MAYORGA Physician Instructions: Reason For Exam: Acute kidney injury/creatinine 3.4/reconsult 12/01/21 11:48 Consult to Interventional Radiology [CONS] Routine Consulting Provider: NAHEED LOPEZ Reason For Exam: Vasc cath placement Place consult to:: Dr. Del Real Notified:: Alba NAYAK Comment:: Dr. Lopez is aware of consult. 12/01/21 13:03 Consult to Physician [CONS] Routine Comment: Consulting Provider: DHRUV GONSALEZ Physician Instructions: Reason For Exam: renal failure 12/01/21 18:53 Consult to Physician [CONS] Routine Comment: Consulting Provider: GUERLINE ESPINO Physician Instructions: Reason For Exam: Gram-positive bacteremia/sepsis 12/16/21 14:04 Consult to Physician [CONS] Routine Comment: Consulting Provider: KARLEY MONREAL Physician Instructions: Reason For Exam: Rectal bleeding Primary care physician: [employer] Hospitalization Condition: Critical Disposition: 30 STILL A PATIENT Core Measure Documentation - Palliative Care Palliative Care/ Comfort Measures: Not Applicable Exam - Constitutional Vitals: Temp Pulse Resp BP Pulse Ox 98.0 F 124 H 16 154/113 98 12/20/21 08:00 12/20/21 08:00 12/20/21 08:00 12/20/21 08:00 12/20/21 09:37 Plan Follow up with: BETHANY INMAN MD [Staff Physician] - 7 Days RUFINO MAYORGA MD [Staff Physician] - 7 Days KP DARDEN MD [Staff Physician] - 14 Days JAVID WALL MD [Primary Care Provider] - 7 Days SHIRIN CUTLER MD [Staff Physician] - 14 Days Prescriptions: Docusate Sodium [Colace CAP] 100 mg PO BID #30 capsule Amiodarone [Cordarone 200 MG TAB] 200 mg PO BID #60 tablet Apixaban [Eliquis] 5 mg PO Q12HR #60 tablet Gabapentin 100 mg PO Q8HR #60 capsule Metoprolol [Lopressor TAB] 100 mg PO BID #60 tablet Melatonin [Melatonin 5MG TAB] 10 mg PO QHS PRN #10 tablet PRN Reason: Sleep Famotidine [Pepcid] 10 mg PO BID #30 tablet oxyCODONE /ACETAMINOPHEN [Percocet 5/325 mg] 1 tab PO Q4H PRN #20 tablet PRN Reason: Pain, Moderate (4-6) ALPRAZolam [Xanax TAB] 0.25 mg PO Q8H PRN #15 tablet PRN Reason: Anxiety
[2021-12-20] MEDS: INSULIN LISPRO 100 UNIT/ML SUB-Q SCH ×4 (10:11→22:16)
[2021-12-20] MEDS: AMIODARONE 200 MG TAB PO SCH ×2 (10:14→21:56)
[2021-12-20] MEDS: ALPRAZolam 0.25 MG TAB PO PRN ×2 (10:14→23:40)
[2021-12-20] MEDS: APIXABAN 5 MG TAB PO SCH ×2 (10:14→21:56)
[2021-12-20] MEDS: MIDODRINE 5 MG TAB PO SCH ×3 (10:15→17:01)
[2021-12-20] MEDS: METOPROLOL TARTRATE 50 MG TAB PO SCH ×2 (10:15→21:56)
[2021-12-20] MEDS: FAMOTIDINE 10 MG TAB PO SCH ×2 (10:15→21:56)
[2021-12-20] MEDS: DOCUSATE SODIUM 100 MG CAP PO SCH ×2 (10:15→21:56)
--- NOTE | 2021-12-20 11:32 | Progress Note ---
Assessment and Plan Acute Renal Failure secondary to Ischemic ATN secondary to Sepsis, Cardiac arrest and Hypotension S/P Cardiac Arrest Acute Hypoxemic Respiratory Failure Acute DVT Sepsis CHF Anemia Hyperkalemia Hyponatremia Plan: can be discharged from renal standpoint today,to be followed as an outpatient with labs within 1-2 weeks CHF-LVEF 25-30 % Anemia-On Epogen Obtain daily weights Strict I/O's daily Renally dose medications Avoid nephrotoxic agents Subjective Date of service: 12/20/21 Principal diagnosis: AHRF; Cardiac arrest; R. pneumothorax; pneumonia; AMS; DVT's; SIERRA; Obesity Interval history: permcath was removed yesterday Objective - Vital Signs Vital signs: Vital Signs - 12hr 12/20/21 12/20/21 12/20/21 03:35 08:00 09:37 Temperature 98.9 F 98.0 F Pulse Rate 125 H 124 H Respiratory 17 16 Rate Blood Pressure 138/93 154/113 O2 Sat by Pulse 96 98 98 Oximetry 12/20/21 11:18 Temperature 98.6 F Pulse Rate 78 Respiratory 16 Rate Blood Pressure 121/83 O2 Sat by Pulse 96 Oximetry - Lab 12/20/21 05:22 12/20/21 05:22 Most recent lab results ABG pH 7.333 pH Units (7.350-7.450) L 12/12/21 14:10 ABG pCO2 50.1 mm Hg 12/12/21 14:10 ABG pO2 57.0 mm Hg (80.0-90.0) L 12/12/21 14:10 ABG HCO3 26.0 mmol/L (20.0-26.0) 12/12/21 14:10 ABG O2 Saturation 88.0 % (95.0-99.0) L 12/12/21 14:10 Calcium 9.6 mg/dL (8.4-10.2) 12/20/21 05:22 Phosphorus 5.20 mg/dL (2.5-4.5) H 12/02/21 03: Magnesium 1.60 mg/dL (1.7-2.3) L 11/19/21 14:38 Urine Creatinine 190.9 mg/dL (0.1-20.0) H 11/04/21 Unknown Urine Sodium 10 mmol/L 11/04/21 Unknown Urine Total Protein 172 mg/dL (5-11.8) H 11/04/21 Unknown Medications & Allergies - Medications Allergies/Adverse Reactions: Allergies No Known Allergies Allergy (Verified 10/29/21 14:01) Home Medications: Home Medications Medication Instructions Recorded Confirmed Last Taken Type ALPRAZolam [Xanax TAB] 0.25 mg PO Q8H PRN #15 tablet 12/19/21 Unknown Rx Amiodarone [Cordarone 200 MG TAB] 200 mg PO BID #60 tablet 12/19/21 Unknown Rx Apixaban [Eliquis] 5 mg PO Q12HR #60 tablet 12/19/21 Unknown Rx Docusate Sodium [Colace CAP] 100 mg PO BID #30 capsule 12/19/21 Unknown Rx Famotidine [Pepcid] 10 mg PO BID #30 tablet 12/19/21 Unknown Rx Gabapentin 100 mg PO Q8HR #60 capsule 12/19/21 Unknown Rx Melatonin [Melatonin 5MG TAB] 10 mg PO QHS PRN #10 tablet 12/19/21 Unknown Rx Metoprolol [Lopressor TAB] 100 mg PO BID #60 tablet 12/19/21 Unknown Rx oxyCODONE /ACETAMINOPHEN [Percocet 1 tab PO Q4H PRN #20 tablet 12/19/21 Unknown Rx 5/325 mg] Active Medications: Generic Name Dose Route Start Last Admin Trade Name Irvingq PRN Reason Stop Dose Admin Acetaminophen 650 mg 10/29/21 17:04 11/12/21 22:53 Acetaminophen 650 Mg Rect Supp NM 650 mg Q6H PRN Administration Pain MILD(1-3)/Fever >100.5/NIEVES Acetaminophen 650 mg 11/19/21 16:35 12/19/21 21:32 Acetaminophen 325 Mg Tab PO 650 mg Q6HR PRN Administration PAIN Albumin Human 50 gm 12/02/21 11:00 12/15/21 13:00 Albumin Human 25% (25 Gm/100 Ml) Inj IV 50 gm ZACH PRN Administration Hypotension Alprazolam 0.25 mg 11/14/21 14:29 12/20/21 10:14 Alprazolam 0.25 Mg Tab PO 0.25 mg Q8H PRN Administration Anxiety Amiodarone HCl 200 mg 12/13/21 22:00 12/20/21 10:14 Amiodarone 200 Mg Tab PO 200 mg BID RAMON Administration Apixaban 5 mg 12/16/21 22:00 12/20/21 10:14 Apixaban 5 Mg Tab PO 5 mg Q12HR RAMON Administration Protocol Docusate Sodium 100 mg 11/18/21 15:00 12/20/21 10:15 Docusate Sodium 100 Mg Cap PO 100 mg BID RAMON Administration Epoetin Landon-epbx 10,000 unit 12/06/21 10:00 12/15/21 15:15 Epoetin Landon-Epbx 10,000 Unit/1 Ml Vial IV 10,000 unit ZACH PRN Administration hemodialysis Famotidine 10 mg 11/06/21 10:00 12/20/21 10:15 Famotidine 10 Mg Tab PO 10 mg BID RAMON Administration Gabapentin 100 mg 11/28/21 14:00 12/20/21 06:35 Gabapentin 100 Mg Cap PO 100 mg Q8HR RAMON Administration Hydrophilic Ointment 1 applic 10/29/21 14:29 11/09/21 08:51 Lip Therapy Vaseline TP 1 applic Q2HR PRN Administration Dry Lips Sodium Chloride 100 mls @ 999 mls/hr 12/17/21 08:21 Nacl 0.9% IV ZACH PRN Hypotension Insulin Human Lispro 0 unit 11/25/21 22:00 12/20/21 10:11 Insulin Lispro 100 Unit/Ml SUB-Q Not Given ACHS [facility] Protocol Magnesium Hydroxide 30 ml 12/16/21 11:00 12/18/21 21:17 Magnesium Hydroxide (Mom) Oral Liqd Udc PO 30 ml Q4H PRN Administration Constipation Melatonin 10 mg 11/22/21 17:31 12/13/21 22:09 Melatonin 5 Mg Tab PO 10 mg QHS PRN Administration Sleep Metoprolol Tartrate 100 mg 12/07/21 11:00 12/20/21 10:15 Metoprolol Tartrate 50 Mg Tab PO 100 mg BID RAMON Administration Midodrine 10 mg 12/01/21 12:00 12/20/21 10:15 Midodrine 5 Mg Tab PO Not Given TID@0800,1200,1600 [facility] Morphine Sulfate 1 mg 11/28/21 15:00 12/10/21 16:34 Morphine 2 Mg/1 Ml Inj IV 1 mg Q4H PRN Administration Pain, Moderate (4-6) Multi-Ingred Cream/Lotion/Oil/Oint 1 applic 10/29/21 14:29 11/06/21 09:25 Mineral Oil/Petrolatum, White Ophth Oint 3.5 Gm OU 1 applic Q4HR PRN Administration Dry Eye(s) Oxycodone/Acetaminophen 1 tab 11/27/21 14:31 12/17/21 22:32 Oxycodone /Acetaminophen 5-325mg Tab PO 1 tab Q4H PRN Administration Pain, Moderate (4-6) Polyethylene Glycol 17 gm 11/20/21 12:47 12/08/21 09:54 Polyethylene Glycol 3350 17 Gm Powder PO 17 gm QDAY PRN Administration Constipation Sodium Chloride 10 ml 10/29/21 22:00 12/20/21 10:16 Sodium Chloride 0.9% 10 Ml Flush Syringe IV 10 ml BID RAMON Administration Sodium Chloride 10 ml 10/29/21 17:04 Sodium Chloride 0.9% 10 Ml Flush Syringe IV PRN PRN LINE FLUSH
[2021-12-20] MEDS: FUROSEMIDE 40 MG TAB PO SCH (17:07)
[2021-12-21] MEDS: GABAPENTIN 100 MG CAP PO SCH ×3 (06:12→23:00)
[2021-12-21] MEDS: FUROSEMIDE 40 MG TAB PO SCH ×2 (06:12→18:42)
[2021-12-21] MEDS: INSULIN LISPRO 100 UNIT/ML SUB-Q SCH ×4 (07:30→23:00)
[2021-12-21] MEDS: AMIODARONE 200 MG TAB PO SCH ×3 (08:43→23:00)
[2021-12-21] MEDS: METOPROLOL TARTRATE 50 MG TAB PO SCH ×3 (08:43→23:00)
[2021-12-21] MEDS: DOCUSATE SODIUM 100 MG CAP PO SCH ×3 (08:44→23:00)
[2021-12-21] MEDS: FAMOTIDINE 10 MG TAB PO SCH ×3 (08:44→23:00)
[2021-12-21] MEDS: APIXABAN 5 MG TAB PO SCH ×3 (08:44→23:00)
[2021-12-21] MEDS: MIDODRINE 5 MG TAB PO SCH ×3 (08:45→17:07)
--- NOTE | 2021-12-21 10:33 | Progress Note ---
Assessment and Plan Assessment: Acute Renal Failure secondary to Ischemic ATN secondary to Sepsis, Cardiac arrest and Hypotension S/P Cardiac Arrest Acute Hypoxemic Respiratory Failure Acute DVT Sepsis CHF Anemia Hyperkalemia Hyponatremia Plan: No new renal labs noted for today at present. Serum creatinine 1.5 yesterday and prior was 1.3 Hemodialysis has been on hold due to renal recovery and perm-catheter has been removed On Midodrine 10 mg po TID CHF-LVEF 25-30 % Anemia-On Epogen 10,000 units TIW Obtain daily weights Strict I/O's daily Renally dose medications Avoid nephrotoxic agents Patient can be discharged from renal standpoint today to follow-up with us in 1- 2 weeks Plan of care reviewed by Dr. Giordano Subjective Date of service: 12/21/20 Principal diagnosis: AHRF; Cardiac arrest; R. pneumothorax; pneumonia; AMS; DVT's; SIERRA; Obesity Interval history: Patient seen lying in bed undergoing bed bath. Objective - Vital Signs Vital signs: Vital Signs - 12hr 12/20/21 12/21/21 12/21/21 23:27 02:30 03:28 Temperature 99.1 F 98.4 F Pulse Rate 125 H 121 H 122 H Respiratory 18 16 Rate Blood Pressure 139/97 137/91 O2 Sat by Pulse 96 98 Oximetry 12/21/21 12/21/21 12/21/21 07:54 08:43 08:50 Temperature 97.8 F Pulse Rate 124 H 124 H Respiratory 20 Rate Blood Pressure 139/100 139/100 O2 Sat by Pulse 96 98 Oximetry - General Appearance General appearance: well-developed, appears stated age, fatigue EENT: ATNC, PERRL, hearing intact, vision intact Neck: no JVD, supple Respiratory: Present: Decreased Breath Sounds Cardiology: S1S2 Gastrointestinal: normoactive bowel sounds Integumentary: warm and dry Neurologic: alert and oriented x3 Musculoskeletal: other (2+ edema BLE) - Lab 12/20/21 05:22 12/20/21 05:22 Most recent lab results ABG pH 7.333 pH Units (7.350-7.450) L 12/12/21 14:10 ABG pCO2 50.1 mm Hg 12/12/21 14:10 ABG pO2 57.0 mm Hg (80.0-90.0) L 12/12/21 14:10 ABG HCO3 26.0 mmol/L (20.0-26.0) 12/12/21 14:10 ABG O2 Saturation 88.0 % (95.0-99.0) L 12/12/21 14:10 Calcium 9.6 mg/dL (8.4-10.2) 12/20/21 05:22 Phosphorus 5.20 mg/dL (2.5-4.5) H 12/02/21 03:22 Magnesium 1.60 mg/dL (1.7-2.3) L 11/19/21 14:38 Urine Creatinine 190.9 mg/dL (0.1-20.0) H 11/04/21 Unknown Urine Sodium 10 mmol/L 11/04/21 Unknown Urine Total Protein 172 mg/dL (5-11.8) H 11/04/21 Unknown Medications & Allergies - Medications Allergies/Adverse Reactions: Allergies No Known Allergies Allergy (Verified 10/29/21 14:01) Home Medications: Home Medications Medication Instructions Recorded Confirmed Last Taken Type ALPRAZolam [Xanax TAB] 0.25 mg PO Q8H PRN #15 tablet 12/19/21 Unknown Rx Amiodarone [Cordarone 200 MG TAB] 200 mg PO BID #60 tablet 12/19/21 Unknown Rx Apixaban [Eliquis] 5 mg PO Q12HR #60 tablet 12/19/21 Unknown Rx Docusate Sodium [Colace CAP] 100 mg PO BID #30 capsule 12/19/21 Unknown Rx Famotidine [Pepcid] 10 mg PO BID #30 tablet 12/19/21 Unknown Rx Gabapentin 100 mg PO Q8HR #60 capsule 12/19/21 Unknown Rx Melatonin [Melatonin 5MG TAB] 10 mg PO QHS PRN #10 tablet 12/19/21 Unknown Rx Metoprolol [Lopressor TAB] 100 mg PO BID #60 tablet 12/19/21 Unknown Rx oxyCODONE /ACETAMINOPHEN [Percocet 1 tab PO Q4H PRN #20 tablet 12/19/21 Unknown Rx 5/325 mg] Active Medications: Generic Name Dose Route Start Last Admin Trade Name Freq PRN Reason Stop Dose Admin Acetaminophen 650 mg 10/29/21 17:04 11/12/21 22:53 Acetaminophen 650 Mg Rect Supp DE 650 mg Q6H PRN Administration Pain MILD(1-3)/Fever >100.5/NIEVES Acetaminophen 650 mg 11/19/21 16:35 12/19/21 21:32 Acetaminophen 325 Mg Tab PO 650 mg Q6HR PRN Administration PAIN Albumin Human 50 gm 12/02/21 11:00 12/15/21 13:00 Albumin Human 25% (25 Gm/100 Ml) Inj IV 50 gm ZACH PRN Administration Hypotension Alprazolam 0.25 mg 11/14/21 14:29 12/20/21 23:40 Alprazolam 0.25 Mg Tab PO 0.25 mg Q8H PRN Administration Anxiety Amiodarone HCl 200 mg 12/13/21 22:00 12/21/21 08:43 Amiodarone 200 Mg Tab PO 200 mg BID RAMON Administration Apixaban 5 mg 12/16/21 22:00 12/21/21 08:44 Apixaban 5 Mg Tab PO 5 mg Q12HR RAMON Administration Protocol Docusate Sodium 100 mg 11/18/21 15:00 12/21/21 08:44 Docusate Sodium 100 Mg Cap PO 100 mg BID RAMON Administration Epoetin Landon-epbx 10,000 unit 12/06/21 10:00 12/15/21 15:15 Epoetin Landon-Epbx 10,000 Unit/1 Ml Vial IV 10,000 unit ZACH PRN Administration hemodialysis Famotidine 10 mg 11/06/21 10:00 12/21/21 08:44 Famotidine 10 Mg Tab PO 10 mg BID RAMON Administration Furosemide 40 mg 12/20/21 18:00 12/21/21 06:12 Furosemide 40 Mg Tab PO 40 mg 0600,1800 RAMON Administration Gabapentin 100 mg 11/28/21 14:00 12/21/21 06:12 Gabapentin 100 Mg Cap PO 100 mg Q8HR RAMON Administration Hydrophilic Ointment 1 applic 10/29/21 14:29 11/09/21 08:51 Lip Therapy Vaseline TP 1 applic Q2HR PRN Administration Dry Lips Sodium Chloride 100 mls @ 999 mls/hr 12/17/21 08:21 Nacl 0.9% IV ZACH PRN Hypotension Insulin Human Lispro 0 unit 11/25/21 22:00 12/20/21 22:16 Insulin Lispro 100 Unit/Ml SUB-Q Not Given ACHS RAMON Protocol Magnesium Hydroxide 30 ml 12/16/21 11:00 12/18/21 21:17 Magnesium Hydroxide (Mom) Oral Liqd Udc PO 30 ml Q4H PRN Administration Constipation Melatonin 10 mg 11/22/21 17:31 12/13/21 22:09 Melatonin 5 Mg Tab PO 10 mg QHS PRN Administration Sleep Metoprolol Tartrate 100 mg 12/07/21 11:00 12/21/21 08:43 Metoprolol Tartrate 50 Mg Tab PO 100 mg BID RAMON Administration Midodrine 10 mg 12/01/21 12:00 12/21/21 08:45 Midodrine 5 Mg Tab PO Not Given TID@0800,1200,1600 RAMON Morphine Sulfate 1 mg 11/28/21 15:00 12/10/21 16:34 Morphine 2 Mg/1 Ml Inj IV 1 mg Q4H PRN Administration Pain, Moderate (4-6) Multi-Ingred Cream/Lotion/Oil/Oint 1 applic 10/29/21 14:29 11/06/21 09:25 Mineral Oil/Petrolatum, White Ophth Oint 3.5 Gm OU 1 applic Q4HR PRN Administration Dry Eye(s) Oxycodone/Acetaminophen 1 tab 11/27/21 14:31 12/17/21 22:32 Oxycodone /Acetaminophen 5-325mg Tab PO 1 tab Q4H PRN Administration Pain, Moderate (4-6) Polyethylene Glycol 17 gm 11/20/21 12:47 12/08/21 09:54 Polyethylene Glycol 3350 17 Gm Powder PO 17 gm QDAY PRN Administration Constipation Sodium Chloride 10 ml 10/29/21 22:00 12/21/21 08:47 Sodium Chloride 0.9% 10 Ml Flush Syringe IV 10 ml BID RAMON Administration Sodium Chloride 10 ml 10/29/21 17:04 Sodium Chloride 0.9% 10 Ml Flush Syringe IV PRN PRN LINE FLUSH
[2021-12-21] MEDS: ACETAMINOPHEN 325 MG TAB PO PRN (14:50)
[2021-12-21] MEDS: ALPRAZolam 0.25 MG TAB PO PRN (14:51)
--- NOTE | 2021-12-21 16:39 | Progress Note ---
Assessment and Plan --Acute kidney injury likely secondary to vasomotor nephropathy, hypernatremia On hemodialysis, patient received stat hemodialysis yesterday due to hyperkalemia Nephrology following, renal function better today, nephrology recommend daily monitoring And evaluation for HD as needed Possible discharge tomorrow if nephrology clears for discharge --Rectal bleeding /resolved Patient is on Eliquis, will hold Eliquis closely monitor H&H, Consult GI, transfuse PRBC as needed GI Dr. Flores evaluated the patient, advised bowel regimen s/p cardiac arrest, [facility], HFrEF, shock/hypotension resolved Atrial fibrillation/atrial flutter -Cardiac arrest and collapse at [facility] with ROSC -Cardiology consulted, appreciate recommendations - S/p Cardizem gtt- d/c due to low EF; now on PO Amio -s/p vasopressor support with levophed -Echocardiogram shows left ventricular systolic function severely decreased, LVEF 25 to 30%, no pericardial effusion -proBNP 5622 -Continue Lasix 20 mg twice daily, BB, spironolactone, losartan -No significant volume overload clinically Acute hypoxic respiratory failure, right pneumothorax, Angioedema (resolved), pulmonary edema -[facility] consulted, appreciate recommendations -Intubated on 10/29 and extubated on 11/11 -Bipap q HS and prn, at high risk for KOLBY with morbid obesity -NC during day -s/p right chest tube for pneumothorax -s/p steroids for angioedema -On Lasix for pulmonary edema. Transaminitis likely shocked liver - resolved Shock cardiogenicsuspected sepsis -Fever was as high as 102 with a leukocytosis Blood, urine and sputum cultures negative -COVID-19 PCR negative -S/p empiric antibiotic therapy for possible pneumonia with Rocephin and azithromycin () -S/p Levophed gtt for hypotension -Fever and leukocytosis resolved -Monitor WBC and temperature curve Acute Metabolic encephalopathy, agitation/anxiety -Etiology likely from a cardiac arrest, shock and cerebral hypoperfusion CT head no acute focal parenchymal lesion in the brain -Neurology consulted, appreciate recommendations -EEG and MRI noted, Neuro recommend to cut down on sedation as possible Mental status significantly improved, currently fairly alert and oriented. Answers appropriately. Acute DVT in the left posterior tibial vein and bilateral peroneal veins, Anemia, retroperitoneal bleed -D-dimer greater than 10,000 -CTA chest with no evidence of PE -Bilateral lower extremity ultrasound positive for DVT -Heparin gtt on hold d/t anemia, received PRBC x4 -vasuclar surgery consulted, appreciate recommendations -recommended multiphasic CT angio of the abdomen and pelvis with and without contrast if H/H drops and did not recommend IVC filter at this time as the DVTs are infrapopliteal and recommends a follow-up DVT study weekly for 2 weeks. Repeat venous duplex ultrasound on 11/21 showed progression of left peroneal DVT extending into popliteal vein. Vascular surgery completed IVC filter placement on 11/22. -Trend CBC -SCDs to BLE while in bed -Transfuse hemoglobin less than 7 -Monitor for signs of bleeding -Hemoglobin stable, 8.6 Hypertension, not able be controlled Increase losartan 200 mg daily and add hydralazine as needed. Hyperglycemia ,resolved) -Avoid hypoglycemia -Hbg A1C 6.7 -SSI and lantus q hs (titrate as needed) -Accu-Cheks q. 6 Morbid obesity; BMI 37.0 High risk for KOLBY, On nightly BiPAP Deconditioning PT/OT Disposition; per case management, Multiple social issues. Patient is stable for discharge Brief history and daily hospital course 66 YO Female with Obesity [facility] when the patient collapsed and lost consciousness. Witnesses began CPR. EMS was notified and upon arrival the patient was found to be in distress without perfusing cardiac rhythm. Patient initiated on ACLS protocol and subsequently intubated in the field and transported to ED. The patient regained spontaneous circulation during transport. She was found to have acute hypoxemic respiratory failure, septic shock suspected secondary to aspiration pneumonia, metabolic acidosis, toxic metabolic encephalopathy, shock liver, and cardiac arrest with return of perfusing cardiac rhythm after initiation of ACLS protocol. Patient initiated on sepsis protocol as well as pneumonia protocol. Patient admitted to ICU. Patient improved, extubated on 11/11 and transferred to floor on 11/19. 10/30: Intubated and sedated, on fentanyl gtt. Open eyes spontaneously but does not follow any commands. On vasopressors, titrate as tolerated for MAP above 65. Patient febrile overnight, continue empiric IV Abx, culture data and COVID PCR pending. Patient is also s/p CT placement due to spontaneous pneumothorax. 2D echo is pending and Cardiology is consulted. 10/31: Patient remains intubated and following commands. Levophed drip stopped and potassium repleted. Patient started on tube feeding. Remains in soft bilateral restraints. 11/01: RN noted ST changes on BSM and 12 lead EKG obtained which showed ST. Given Ativan 1mg for agitation as she is maxed on fentanyl drip and IV push fentanyl did not seem to help. Patient was started on CPAP this morning by RT but remained on fentanyl drip and was having periods of apnea. Plan was to retry CPAP again in the p.m. with sedation off. 11/02: Rate increased r/t hypercapnea on ABG, sedation reduced. Given kionex for hyperkalemia and was started on levophed overnight for hypotension. 11/03: Overnight patient had tachycardia and was given Cardizem and Lopressor. Lopressor was repeated in the a.m. due to tachycardia. Patient will be started on amiodarone with a bolus per cardiology. Patient started on normal saline per liter per [facility] and steroids for angioedema. Noted to have bright red blood when suctioned from oh ETT. Remains on heparin drip as H/H is stable for now. Will reevaluate. Fentanyl drip was restarted last night due to agitation. Dr. Flores updated family today 11/04: Patient was sedated on fentanyl however off sedation is able to follow commands, a.m. labs completed in the p.m. and show hyperkalemia with increased renal function studies. Nephrology, neurology consulted by [facility]. Given Kayexalate, insulin and D50 for hyperkalemia. Patient remains on amiodarone. 11/05: Patient needed to be sedated on fentanyl again to today. overnight krishna was replaced. Hyperkalemia->given kionex 60 for 5.6. Repeat K 6-> Dr. Grant informed and requested bumex, kionex, insulin, d50, calcium gluconate and sodium bicarb with repeat BMP in 2 hours which were placed. HR remains elevated. 11/06: Patient remained in atrial fibrillation/atrial flutter with heart rate in the 150s despite being on amnio drip and was given amnio bolus, Cardizem bolus and started on Cardizem drip by cardiology. Patient is on beta-blockers p.o. scheduled and to feedings changed to Nepro. Kayexalate was given in the morning by nephrology due to hyperkalemia. 11/07: Patient is only responsive to mild stimuli, precedex added in an attempt to wean off fentanyl gtt to better assess her mental status. Neurology also on consult, pending MRI and EEG. Patient remains in Aflutter this am, HR in the 80 to 90s, still on amiodarone and heparin gtt. 11/08: Fentanyl gtt is off, only on precedex gtt. Patient is still not following any commands. MRI brain and EEG completed. Neuro recommendations noted, sedatives agents decreased. FWF added for hypernatremia and low K repleted, repeat labs ordered. Placed a call and spoke with patient's daughter, Eav Brown . She was updated on patient's conditions and status. All questions and concerns were voiced at this time. 11/09: Patient is awake and alert this am, following commands and appropriate. Remains on precedex gtt, plan for possible PST today. Hypertensive overnight, meds adjusted by Cardio and PRN Hydralazine added for SBP greater than 160. CT dislodged overnight, CXR is stable with no significant change. F/U CXR in the am. Patient's daughter, Eva Brown, visited with patient. She was updated on patient's status and goal of care for today. All questions and concerns were voiced at this time. 11/10: Mentation remains intact, still on precedex gtt. This am CXR noted still with fluid overload s/p X1 dose of IV lasix, good response from IV lasix overnight. Hypernatremia improved, D5W d/dayday. Still with persistent hypokalemia, continue electrolytes replacement and frequent lab check. Daily IV lasix and aldactone added by Cardio. Patient is also with persistent low grade fevers overnight, leukocytosis with mild improvement this am. Will get a repeat sputum culture, hold off on IV abx for now. Consider ID consult if fevers and leukocytosis persist. Patient tolerated PST X4hrs yesterday. PST again today, plan to wean to extubate if tolerated. 11/11: IAM overnight. Off precedex gtt and tolerated PST this am. Plan to wean to extubate today. Additional IV lasix given, plan to keep patient at a net negative balance for better lung compliance. F/U CXR in the am. K improved this am, repeat BMP this afternoon since diuresing. Remains with low grade fevers, leukocytosis downtrending, will continue to monitor. Speech/PT/OT ordered 11/12: S/p extubation, now stable on 3L NC. This am CXR noted with no significant changes, lasix changed to IV X4days BID. Drop in H&H this am, and Lt. flank ecchymosis noted. Heparin gtt on hold for now and orders placed for 1 unit of PRBCs and Ct Abd/Pelvis w/o con to r/o retroperitoneal bleed. Pending speech swallow eval, keep patient NPO for now. Patient is stable for IMCU status 11/13: Patient with increased WOB and tachycardia this am, patient was placed on Bipap and precedex gtt was resumed. CXR with mild improvement. CT Abd/Pelvis also reviewed large hematomas noted at the Lt. retroperitoneum and left posterior lateral abdominal wall. Heparin gtt is already on hold, patient is hemodynamically stable. Vascular Surgery consulted for possible IVC filter eval. Patient s/p 2units of PRBCs, will continue to trend H&H and transfuse if hbg is less than 7. Worsening renal function this am, IF diuretic on hold for now. Patient is also febrile with spike in wbcs most likely reactive to bleed, will panculture and hold off on IV Abx for now. Patient also failed speech bedside swallow eval yesterday, NGT in placed plan to resume enteral nutrition 11/14: Patient had bilateral lower extremity Doppler ultrasound and vascular surgery has recommended multiphasic CT angio of the abdomen and pelvis with and without contrast if H/H drops and does not recommend IVC filter at this time as the DVTs are infrapopliteal and recommends a DVT study weekly for 2 weeks. FWF 250 q4 ml per nephro. Started on as needed Xanax and p.o. amiodarone. She did not pass her ST evaluation today. Will be transferred to [facility]. 11/15: Resting comfortably on encounter. Speech cleared for pureed diet. Remains on 3l satting 98 % on bedside encounter. Does not appear to be in respiratory distress. Will continue to hold AC, No ivc filter planned at this time. qweekly doppler to monitor for migration of DVT per vascular. If demonstrated, will consider IVC filter. CBC ordered for tomorrow, will continue monitoring in light of retroperitoneal hematoma. FWF increased by nephrology to 350cc q4hr d/t hypernatremia. UOP/renal function both improved. D/w cardiology, will continue amiodorone an additional 24hrs. Plan to change dosing of metoprolol. Continue to wean off of precedex. Continue xanax scheduled for anxiety. physical therapy recs noted, fernanda / ltac will discuss with CM. Continue IMCU monitoring. 11/16: Pulmonary congestion this AM. CXR ordered. Lasix 40 mg IV x 1 order this AM. Will monitor for 24 hrs. potential downgrade to medical floor tomorrow. 11/17: Persisting pulmonary congestion, was on bipap overnight into this AM. Will order additional lasix 40 mg IV x 2. CXR ordered for AM. Possible downgrade to floor tomorrow. Anticipate d/c sunday. 11/18: Patient seen and examined, continue weaning, will continue diuresis BID, discussed with daughter. 11/19: Patient seen and examined this morning doing well no acute distress noted. Lasix was increased to twice daily to 20 mg IV. Clinically improving. Patient will be transferred to telemetry today can be switched to Lasix p.o. twice daily in a.m. She has her weekly Doppler of lower extremity tomorrow vascular is following for this. She was taken off anticoagulation secondary to retroperitoneal bleed., The anticoagulation was started initially for atrial fibrillation and an infrapopliteal DVT. During her hospital stay she had a prolonged ventilator management and was successfully weaned off. She also received a total of 4 units of packed red blood cell. Hemoglobin has remained stable. Anticipate discharge in next 48 hours if continues to clinically stay stable. : Transferred from ICU on 11/19. Progressive improving. Currently awake and oriented. O2 weaned to 4 L. Hemodynamically stable. BP control being optimized. MiraLAX for constipation. Hemoglobin stable on the heparin infusion, being monitored closely with history of retroperitoneal bleed. 11/21: Patient remains mostly bedridden. She is awake and oriented on 2 L of O2. Repeat ultrasound showed extension of left peroneal DVT into popliteal vein. Heparin was discontinued for significant retroperitoneal bleed and off anticoagulation since. Vascular surgery plan for placement of IVC filter tomorrow. Patient is chest pains, palpitations, hemoptysis. She has some cough. Left lower extremity pain likely from DVT better today. Discussed with the patient, nursing staff and vascular surgery. 11/22: The infrapopliteal vein thrombosis has propagated to the left popliteal vein. Vascular surgery to perform IVC filter placement today. 11/23: Vascular surgery placed IVC filter yesterday. Continue metoprolol 100 mg p.o. twice daily, Aldactone 25 mg p.o. daily and losartan 25 mg p.o. daily. Patient still requiring BiPAP (IPAP18, EPAP8) with FiO2 of 30%. Continue to w adi oxygen per pulmonary recommendations. Nurse reports patient is having vaginal bleeding. We will check serial CBC and pelvic ultrasound 11/24: I discussed with cardiology yesterday the need for a LifeVest. LifeVest is ordered and pending. Patient is s/p IVC filter placement. Continue metoprolol 100 mg p.o. twice daily, Aldactone 25 mg p.o. daily and losartan 25 mg p.o. daily. Patient still requiring BiPAP (IPAP18, EPAP8) with FiO2 of 30%. Continue to wean oxygen per pulmonary recommendations. No further reports of vaginal bleeding. Pelvic ultrasound negative 11/25: Awaiting for LifeVest. Patient is s/p IVC filter placement. Continue metoprolol 100 mg p.o. twice daily, Aldactone 25 mg p.o. daily and losartan 25 mg p.o. daily. Patient still requiring BiPAP (IPAP18, EPAP8) with FiO2 of 30%. Continue to wean oxygen per pulmonary recommendations. 11/26: Physical therapy recommends subacute rehab. Still awaiting LifeVest. Patient is s/p IVC filter placement. Continue metoprolol 100 mg p.o. twice daily, Aldactone 25 mg p.o. daily and losartan 25 mg p.o. daily. Patient still requiring BiPAP (IPAP18, EPAP8) with FiO2 of 30% at night. Continue to wean oxygen per pulmonary recommendations. Patient currently with 2 L O2. 11/27: Physical therapy recommends subacute rehab. Patient has a LifeVest. Patient's left lower extremity pain likely related to DVT. Continue pain control. Continue metoprolol 100 mg p.o. twice daily, Aldactone 25 mg p.o. daily and losartan 25 mg p.o. daily. Patient still requiring BiPAP (IPAP18, EPAP8) with FiO2 of 30% at night. 11/28: Physical therapy recommends subacute rehab. Patient has a LifeVest. Patient continues to complain of left lower extremity pain which makes it very difficult for ambulation. Continue Percocet for pain control. Add neurontin for possible neuropathy. Etiology is likely secondary to DVT. Continue metoprolol 100 mg p.o. twice daily, Aldactone 25 mg p.o. daily and losartan 25 mg p.o. daily. Patient still requiring BiPAP (IPAP18, EPAP8) with FiO2 of 30% at night. Repeated Doppler US of LLE and will ask vascular surgery to revisit. 11/29; worsening lower extremity DVTs, vascular following, on heparin drip 11/30; low-grade fever, leukocytosis, shortness of breath, chest x-ray possible left-sided pneumonia/possible healthcare associated pneumonia Blood cultures already sent, empiric antibiotic cefepime[renal dose confirmed with pharmacist] ID consult if needed 12/01; gram-positive bacteremia preliminary, add vancomycin 1 dose, repeat cultures, consult ID Worsening renal function, nephrology initiated hemodialysis today, patient is critically ill, very poor prognosis, with multiple comorbidities And critical issues. Oral And Maxillofacial Surgery recommendations noted and appreciated 12/02; Gram positive bacteremia/possible HCAP and sepsis, on cefepime and 1 dose Vanco. Nephrology initiated hemodialysis, ID consult. Patient is hypotensive, pulmonary critical recommended transfer to ICU and start vasopressors for close observation overnight. Dr. Padron discussed with patient's daughter over lisa ent's telephone and discussed in detail patient's condition, new developments sepsis, renal failure on hemodialysis anticoagulation for DVT and severe cardiomyopathy, also discussed poor prognosis, and the plans of transferring the patient to ICU for close observation. Many questions, and answered all of them. dr. Padron also discussed with granddaughter at the bedside and patient was moved to ICU, She had numerous questions answered all of them and discussed the current condition prognosis and treatment plan. She verbalized understanding 12/03: Patient was transferred to ICU yesterday evening for hypotension however she did not need to be started on any vasopressin therapy. Patient is on p.o. midodrine and all her antihypertensives have been held. She also received albumin bolus. Patient will be transferred to the floor today. Still complains of bilateral lower extremity pain. Patient is on cefepime and she is scheduled for dialysis today. 12/04: Some complaint of leg pain. Percocet given for pain control. Patient is very deconditioned, will need aggressive PT. Will work on d/c planning with cm. 12/05: Patient does not appear to be in distress this AM. tachycardic hr on e ncounter and overnight, was given diltiazem by ecommerce marketing manager. Cardiology initiated metoprolol and amiodorone on patient this morning. She denies any pain except for discomfort in left lower extremity. Controlled with percocet. She also states that she does not have any urine output and has been constipated. Will order bowel regimen. Discharge needs discussed with CM which include Lifevest, BIPAP for nightly use, and possible set up for dialysis. She was visiting on a visa to the from [place] however is technically a citizen of [place] which makes placement a continued challenge. 12/06: Case management reports patient will need LifeVest, walker, CPAP and arrangements for outpatient hemodialysis. However, patient is uninsured. I discussed with the daughter Eva plans for home hospice. Eva reports that she is willing to have hospice to obtain additional resources but is not wanting palliative care/comfort measures. 12/07: Awaiting LifeVest and outpatient HD arrangements. I d/w CM discharge planning. Pt still with heparin drip but amiodarone changed to p.o. 200mg BID. Cont. Metoprolol 50mg BID. Hold LAYO and ARB for renal fxn. Patient for outpatient ischemic evaluation per Cardiology. Leukocytosis likely related to retroperitoneal hematoma. ID wants to monitor off abx. 12/08: Awaiting LifeVest and outpatient HD arrangements. I d/w CM discharge planning. Pt still with heparin drip. Await cardiology recommendations to transition to p.o. anticoagulation. Patient for outpatient ischemic evaluation per Cardiology. Leukocytosis likely related to retroperitoneal hematoma. Continue to monitor off antibiotics. Continue volume management per nephrology with hemodialysis 12/09: Patient with PermCath placement today. Nephrology reports patient hypotensive during hemodialysis and started 10 mg of midodrine for hypotension. Losartan discontinued. Continue to obtain daily weights and Strict I/O's. Renally dose medications and avoid nephrotoxic agents. Patient for outpatient ischemic evaluation per Cardiology. Leukocytosis likely related to retroperiton eal hematoma. Continue to monitor off antibiotics. Awaiting LifeVest and outpatient HD arrangements. 12/10: Continue hemodialysis per nephrology recommendations. We will discontinue heparin drip and start Eliquis 5 mg p.o. twice daily for anticoagulation. Blood pressure appears to be improved. Continue midodrine. Continue to obtain daily weights and Strict I/O's. Renally dose medications and avoid nephrotoxic agents. Patient for outpatient ischemic evaluation per Cardiology. Leukocytosis likely related to retroperitoneal hematoma. Continue to monitor off antibiotics. Awaiting LifeVest and outpatient HD arrangements. 12/11: Cardiology plans for Lexiscan in a.m. Continue hemodialysis per nephrology recommendations. We will discontinue heparin drip and start Eliquis 5 mg p.o. twice daily for anticoagulation. Blood pressure appears to be improved. Continue midodrine. Continue to obtain daily weights and Strict I/O's. Renally dose medications and avoid nephrotoxic agents. 12/12: Lexiscan this morning per cardiology. Continue hemodialysis per nephrology recommendations. Continue Eliquis for anticoagulation. Continue midodrine. Continue to obtain daily weights and Strict I/O's. Renally dose medications and avoid nephrotoxic agents. 12/14; Lexiscan test yesterday was negative for ischemia, patient receiving physical therapy, hemodialysis DC planning per case management. Hospice placement, multiple social issues 3;24; received 1 unit PRBC transfusion as patient has anemia with hemoglobin of 6.9 follow H&H and transfuse additional PRBC as needed DC planning per case management 3;25; patient had episode of rectal bleeding/melena this afternoon, patient received 1 unit PRBC yesterday for hemoglobin of 6.9 which improved to 8.2 Closely monitor H&H and transfuse additional PRBC as needed, GI consulted[discussed with Dr. Austyn Saleh] Hold Eliquis, I discussed in detail with the patient and her daughter about her recent benefits and consequences of holding Eliquis in the setting of DVT and A. fib due to severe bleeding, they verbalized understanding, patient does not have new episodes of bleeding we will resume Eliquis and closely monitor 12/17; patient did not have any new episodes of rectal bleeding, hemoglobin and hematocrit is stable, initially planning to discharge the patient home, however patient had hyperkalemia, nephrology scheduled for stat hemodialysis today, they wanted to closely monitor. Possible discharge in 1 to 2 days if cleared by nephrology. 12/18; patient's renal function is better today, no dialysis, hemoglobin above 8, hemodynamically stable Possible discharge tomorrow if patient is stable and cleared by nephrology 12/19; patient is being discharged home today, discussed with case management team, discussed with other consultants who cleared. Discussed with patient's daughter Ms. Eva Brown. 12/20; patient was discharged today however did not go till now, will continue current management DC planning per Case management 12/21; CM working on discharge plan, daughter did not show up to bean picker machine operator the patient, cont supportive care. Hospitalist Physical General appearance: Present: no acute distress, well-nourished, obese (Morbidly obese), other (Minimally communicative) - EENT Eyes: Present: PERRL, EOM intact - Neck Neck: Present: supple, normal ROM - Respiratory Respiratory effort: normal Respiratory: bilateral: diminished, negative: rales, rhonchi, wheezing - Cardiovascular Rhythm: regular Heart Sounds: Present: S1 & S2 - Extremities Extremities: no ischemia, No edema - Abdominal General gastrointestinal: soft, non-tender, non-distended - Integumentary Integumentary: Present: clear, warm - Psychiatric Psychiatric: appropriate mood/affect, cooperative - Neurologic Neurologic: moves all extremities Subjective Date of service: 12/21/21 Principal diagnosis: AHRF; Cardiac arrest; R. pneumothorax; pneumonia; AMS; DVT's; SIERRA; Obesity Interval history: Seen and examined the patient this morning No acute event overnight, vitals noted, feels better Patient is planned to discharge home with 16/04 family support and home health But family member is not available to receive the patient and also unable to reach out to the family Objective - Constitutional Vitals: Vital Signs - 12hr 12/21/21 12/21/21 12/21/21 07:54 08:43 08:50 Temperature 97.8 F Pulse Rate 124 H 124 H Respiratory 20 Rate Blood Pressure 139/100 139/100 Blood Pressure [Left] O2 Sat by Pulse 96 98 Oximetry 12/21/21 16:00 Temperature 97.8 F Pulse Rate 114 H Respiratory 20 Rate Blood Pressure Blood Pressure 134/92 [Left] O2 Sat by Pulse 97 Oximetry - Labs CBC & Chem 7: 12/20/21 05:22 12/23/21 08:17 Labs: Abnormal lab results 12/20/21 12/20/21 Range/Units 15:56 20:17 POC Glucose 106 H 136 H (70-105) mg/dL HEART Score - HEART Score Troponin: Troponin T 1.150 ng/mL (0.00-0.029) H* D 10/29/21 22:34
--- NOTE | 2021-12-21 18:51 | Progress Note ---
Assessment and Plan Assessment and plan: Patient was stable and was discharged.However patient did not leave. Patient is stable for discharge. DC planning per case management. --Acute kidney injury likely secondary to vasomotor nephropathy, hypernatremia On hemodialysis, patient received stat hemodialysis yesterday due to hyperkalemia Nephrology following, renal function better today, nephrology recommend daily monitoring And evaluation for HD as needed Possible discharge tomorrow if nephrology clears for discharge --Rectal bleeding /resolved Patient is on Eliquis, will hold Eliquis closely monitor H&H, Consult GI, transfuse PRBC as needed GI Dr. Flores evaluated the patient, advised bowel regimen s/p cardiac arrest, collapse at [facility], HFrEF, shock/hypotension resolved Atrial fibrillation/atrial flutter -Cardiac arrest and collapse at [facility] with ROSC -Cardiology consulted, appreciate recommendations - S/p Cardizem gtt- d/c due to low EF; now on PO Amio -s/p vasopressor support with levophed -Echocardiogram shows left ventricular systolic function severely decreased, LVEF 25 to 30%, no pericardial effusion -proBNP 5622 -Continue Lasix 20 mg twice daily, BB, spironolactone, losartan -No significant volume overload clinically Acute hypoxic respiratory failure, right pneumothorax, Angioedema (resolved), pulmonary edema -[facility] consulted, appreciate recommendations -Intubated on 10/29 and extubated on 11/11 -Bipap q HS and prn, at high risk for KOLBY with morbid obesity -NC during day -s/p right chest tube for pneumothorax -s/p steroids for angioedema -On Lasix for pulmonary edema. Transaminitis likely shocked liver - resolved Shock cardiogenicsuspected sepsis -Fever was as high as 102 with a leukocytosis Blood, urine and sputum cultures negative -COVID-19 PCR negative -S/p empiric antibiotic therapy for possible pneumonia with Rocephin and a zithromycin () -S/p Levophed gtt for hypotension -Fever and leukocytosis resolved -Monitor WBC and temperature curve Acute Metabolic encephalopathy, agitation/anxiety -Etiology likely from a cardiac arrest, shock and cerebral hypoperfusion CT head no acute focal parenchymal lesion in the brain -Neurology consulted, appreciate recommendations -EEG and MRI noted, Neuro recommend to cut down on sedation as possible Mental status significantly improved, currently fairly alert and oriented. Answers appropriately. Acute DVT in the left posterior tibial vein and bilateral peroneal veins, Anemia, retroperitoneal bleed -D-dimer greater than 10,000 -CTA chest with no evidence of PE -Bilateral lower extremity ultrasound positive for DVT -Heparin gtt on hold d/t anemia, received PRBC x4 -vasuclar surgery consulted, appreciate recommendations -recommended multiphasic CT angio of the abdomen and pelvis with and without contrast if H/H drops and did not recommend IVC filter at this time as the DVTs are infrapopliteal and recommends a follow-up DVT study weekly for 2 weeks. Repeat venous duplex ultrasound on 11/21 showed progression of left peroneal DVT extending into popliteal vein. Vascular surgery completed IVC filter placement on 11/22. -Trend CBC -SCDs to BLE while in bed -Transfuse hemoglobin less than 7 -Monitor for signs of bleeding -Hemoglobin stable, 8.6 Hypertension, not able be controlled Increase losartan 200 mg daily and add hydralazine as needed. Hyperglycemia ,resolved) -Avoid hypoglycemia -Hbg A1C 6.7 -SSI and lantus q hs (titrate as needed) -Accu-Cheks q. 6 Morbid obesity; BMI 37.0 High risk for KOLBY, On nightly BiPAP Deconditioning PT/OT ;per case management Multiple social issues Brief history and daily hospital course 66 YO Female with Obesity was attending [facility] services when the patient collapsed and lost consciousness. Witnesses began CPR. EMS was notified and upon arrival the patient was found to be in distress without perfusing cardiac rhythm. Patient initiated on ACLS protocol and subsequently intubated in the field and transported to ED. The patient regained spontaneous circulation during transport. She was found to have acute hypoxemic respiratory failure, septic shock suspected secondary to aspiration pneumonia, metabolic acidosis, toxic metabolic encephalopathy, shock liver, and cardiac arrest with return of perfusing cardiac rhythm after initiation of ACLS protocol. Patient initiated on sepsis protocol as well as pneumonia protocol. Patient admitted to ICU. Patient improved, extubated on 11/11 and transferred to floor on 11/19. 10/30: Intubated and sedated, on fentanyl gtt. Open eyes spontaneously but does not follow any commands. On vasopressors, titrate as tolerated for MAP above 65. Patient febrile overnight, continue empiric IV Abx, culture data and COVID PCR pending. Patient is also s/p CT placement due to spontaneous pneumothorax. 2D echo is pending and Cardiology is consulted. 10/31: Patient remains intubated and following commands. Levophed drip stopped and potassium repleted. Patient started on tube feeding. Remains in soft bilateral restraints. 11/01: RN noted ST changes on BSM and 12 lead EKG obtained which showed ST. Given Ativan 1mg for agitation as she is maxed on fentanyl drip and IV push fentanyl did not seem to help. Patient was started on CPAP this morning by RT but remained on fentanyl drip and was having periods of apnea. Plan was to retry CPAP again in the p.m. with sedation off. 11/02: Rate increased r/t hypercapnea on ABG, sedation reduced. Given kionex for hyperkalemia and was started on levophed overnight for hypotension. 11/03: Overnight patient had tachycardia and was given Cardizem and Lopressor. Lopressor was repeated in the a.m. due to tachycardia. Patient will be started on amiodarone with a bolus per cardiology. Patient started on normal saline per liter per [facility] and steroids for angioedema. Noted to have bright red blood when suctioned from oh ETT. Remains on heparin drip as H/H is stable for now. Will reevaluate. Fentanyl drip was restarted last night due to agitation. Dr. Flores updated family today 11/04: Patient was sedated on fentanyl however off sedation is able to follow commands, a.m. labs completed in the p.m. and show hyperkalemia with increased renal function studies. Nephrology, neurology consulted by [facility]. Given Kayexalate, insulin and D50 for hyperkalemia. Patient remains on amiodarone. 11/05: Patient needed to be sedated on fentanyl again to today. overnight krishna was replaced. Hyperkalemia->given kionex 60 for 5.6. Repeat K 6-> Dr. Grant informed and requested bumex, kionex, insulin, d50, calcium gluconate and sodium bicarb with repeat BMP in 2 hours which were placed. HR remains elevated. 11/06: Patient remained in atrial fibrillation/atrial flutter with heart rate in the 150s despite being on amnio drip and was given amnio bolus, Cardizem bolus and started on Cardizem drip by cardiology. Patient is on beta-blockers p.o. scheduled and to feedings changed to Nepro. Kayexalate was given in the morning by nephrology due to hyperkalemia. 11/07: Patient is only responsive to mild stimuli, precedex added in an attempt to wean off fentanyl gtt to better assess her mental status. Neurology also on consult, pending MRI and EEG. Patient remains in Aflutter this am, HR in the 80 to 90s, still on amiodarone and heparin gtt. 11/08: Fentanyl gtt is off, only on precedex gtt. Patient is still not following any commands. MRI brain and EEG completed. Neuro recommendations noted, sedatives agents decreased. FWF added for hypernatremia and low K repleted, repeat labs ordered. Placed a call and spoke with patient's daughter, Eva Brown . She was updated on patient's conditions and status. All questions and concerns were voiced at this time. 11/09: Patient is awake and alert this am, following commands and appropriate. Remains on precedex gtt, plan for possible PST today. Hypertensive overnight, meds adjusted by Cardio and PRN Hydralazine added for SBP greater than 160. CT dislodged overnight, CXR is stable with no significant change. F/U CXR in the am. Patient's daughter, Eva Brown, visited with patient. She was updated on patient's status and goal of care for today. All questions and concerns were voiced at this time. 11/10: Mentation remains intact, still on precedex gtt. This am CXR noted still with fluid overload s/p X1 dose of IV lasix, good response from IV lasix overnight. Hypernatremia improved, D5W d/dayday. Still with persistent hypokalemia, continue electrolytes replacement and frequent lab check. Daily IV lasix and aldactone added by Cardio. Patient is also with persistent low grade fevers overnight, leukocytosis with mild improvement this am. Will get a repeat sputum culture, hold off on IV abx for now. Consider ID consult if fevers and leukocytosis persist. Patient tolerated PST X4hrs yesterday. PST again today, plan to wean to extubate if tolerated. 11/11: IAM overnight. Off precedex gtt and tolerated PST this am. Plan to wean to extubate today. Additional IV lasix given, plan to keep patient at a net negative balance for better lung compliance. F/U CXR in the am. K improved this am, repeat BMP this afternoon since diuresing. Remains with low grade fevers, leukocytosis downtrending, will continue to monitor. Speech/PT/OT ordered 11/12: S/p extubation, now stable on 3L NC. This am CXR noted with no significant changes, lasix changed to IV X4days BID. Drop in H&H this am, and Lt. flank ecc hymosis noted. Heparin gtt on hold for now and orders placed for 1 unit of PRBCs and Ct Abd/Pelvis w/o con to r/o retroperitoneal bleed. Pending speech swallow eval, keep patient NPO for now. Patient is stable for IMCU status 11/13: Patient with increased WOB and tachycardia this am, patient was placed on Bipap and precedex gtt was resumed. CXR with mild improvement. CT Abd/Pelvis also reviewed large hematomas noted at the Lt. retroperitoneum and left posterior lateral abdominal wall. Heparin gtt is already on hold, patient is hemodynamically stable. Vascular Surgery consulted for possible IVC filter eval. Patient s/p 2units of PRBCs, will continue to trend H&H and transfuse if hbg is less than 7. Worsening renal function this am, IF diuretic on hold for now. Patient is also febrile with spike in wbcs most likely reactive to bleed, will panculture and hold off on IV Abx for now. Patient also failed speech bedside swallow eval yesterday, NGT in placed plan to resume enteral nutrition 11/14: Patient had bilateral lower extremity Doppler ultrasound and vascular surgery has recommended multiphasic CT angio of the abdomen and pelvis with and without contrast if H/H drops and does not recommend IVC filter at this time as the DVTs are infrapopliteal and recommends a DVT study weekly for 2 weeks. FWF 250 q4 ml per nephro. Started on as needed Xanax and p.o. amiodarone. She did not pass her ST evaluation today. Will be transferred to IMCU. 11/15: Resting comfortably on encounter. Speech cleared for pureed diet. Remains on 3l satting 98 % on bedside encounter. Does not appear to be in respiratory distress. Will continue to hold AC, No ivc filter planned at this time. qweekly doppler to monitor for migration of DVT per vascular. If demonstrated, will consider IVC filter. CBC ordered for tomorrow, will continue monitoring in light of retroperitoneal hematoma. FWF increased by nephrology to 350cc q4hr d/t hypernatremia. UOP/renal function both improved. D/w cardiology, will continue amiodorone an additional 24hrs. Plan to change dosing of metoprolol. Continue to wean off of precedex. Continue xanax scheduled for anxiety. physical therapy recs noted, fernanda / ltac will discuss with CM. Continue IMCU monitoring. 11/16: Pulmonary congestion this AM. CXR ordered. Lasix 40 mg IV x 1 order this AM. Will monitor for 24 hrs. potential downgrade to medical floor tomorrow. 11/17: Persisting pulmonary congestion, was on bipap overnight into this AM. Will order additional lasix 40 mg IV x 2. CXR ordered for AM. Possible downgrade to floor tomorrow. Anticipate d/c sunday. 11/18: Patient seen and examined, continue weaning, will continue diuresis BID, discussed with daughter. 11/19: Patient seen and examined this morning doing well no acute distress noted. Lasix was increased to twice daily to 20 mg IV. Clinically improving. Patient will be transferred to telemetry today can be switched to Lasix p.o. twice daily in a.m. She has her weekly Doppler of lower extremity tomorrow vascular is following for this. She was taken off anticoagulation secondary to retroperitoneal bleed., The anticoagulation was started initially for atrial fibrillation and an infrapopliteal DVT. During her hospital stay she had a prolonged ventilator management and was successfully weaned off. She also received a total of 4 units of packed red blood cell. Hemoglobin has remained stable. Anticipate discharge in next 48 hours if continues to clinically stay stable. : Transferred from ICU on 11/19. Progressive improving. Currently awake and oriented. O2 weaned to 4 L. Hemodynamically stable. BP control being optimized. MiraLAX for constipation. Hemoglobin stable on the heparin infusion, being monitored closely with history of retroperitoneal bleed. 11/21: Patient remains mostly bedridden. She is awake and oriented on 2 L of O2. Repeat ultrasound showed extension of left peroneal DVT into popliteal vein. Heparin was discontinued for significant retroperitoneal bleed and off anticoagulation since. Vascular surgery plan for placement of IVC filter tomorrow. Patient is chest pains, palpitations, hemoptysis. She has some cough. Left lower extremity pain likely from DVT better today. Discussed with the patient, nursing staff and vascular surgery. 11/22: The infrapopliteal vein thrombosis has propagated to the left popliteal vein. Vascular surgery to perform IVC filter placement today. 11/23: Vascular surgery placed IVC filter yesterday. Continue metoprolol 100 mg p.o. twice daily, Aldactone 25 mg p.o. daily and losartan 25 mg p.o. daily. Patient still requiring BiPAP (IPAP18, EPAP8) with FiO2 of 30%. Continue to wean oxygen per pulmonary recommendations. Nurse reports patient is having va ginal bleeding. We will check serial CBC and pelvic ultrasound 11/24: I discussed with cardiology yesterday the need for a LifeVest. LifeVest is ordered and pending. Patient is s/p IVC filter placement. Continue metoprolol 100 mg p.o. twice daily, Aldactone 25 mg p.o. daily and losartan 25 mg p.o. daily. Patient still requiring BiPAP (IPAP18, EPAP8) with FiO2 of 30%. Continue to wean oxygen per pulmonary recommendations. No further reports of vaginal bleeding. Pelvic ultrasound negative 11/25: Awaiting for LifeVest. Patient is s/p IVC filter placement. Continue metoprolol 100 mg p.o. twice daily, Aldactone 25 mg p.o. daily and losartan 25 mg p.o. daily. Patient still requiring BiPAP (IPAP18, EPAP8) with FiO2 of 30%. Continue to wean oxygen per pulmonary recommendations. 11/26: Physical therapy recommends subacute rehab. Still awaiting LifeVest. Patient is s/p IVC filter placement. Continue metoprolol 100 mg p.o. twice daily, Aldactone 25 mg p.o. daily and losartan 25 mg p.o. daily. Patient still requiring BiPAP (IPAP18, EPAP8) with FiO2 of 30% at night. Continue to wean oxygen per pulmonary recommendations. Patient currently with 2 L O2. 11/27: Physical therapy recommends subacute rehab. Patient has a LifeVest. Patient's left lower extremity pain likely related to DVT. Continue pain control. Continue metoprolol 100 mg p.o. twice daily, Aldactone 25 mg p.o. daily and losartan 25 mg p.o. daily. Patient still requiring BiPAP (IPAP18, EPAP8) with FiO2 of 30% at night. 11/28: Physical therapy recommends subacute rehab. Patient has a LifeVest. Patient continues to complain of left lower extremity pain which makes it very difficult for ambulation. Continue Percocet for pain control. Add neurontin for possible neuropathy. Etiology is likely secondary to DVT. Continue metoprolol 100 mg p.o. twice daily, Aldactone 25 mg p.o. daily and losartan 25 mg p.o. daily. Patient still requiring BiPAP (IPAP18, EPAP8) with FiO2 of 30% at night. Repeated Doppler US of LLE and will ask vascular surgery to revisit. 11/29; worsening lower extremity DVTs, vascular following, on heparin drip 11/30; low-grade fever, leukocytosis, shortness of breath, chest x-ray possible left-sided pneumonia/possible healthcare associated pneumonia Blood cultures already sent, empiric antibiotic cefepime[renal dose confirmed with pharmacist] ID consult if needed 12/01; gram-positive bacteremia preliminary, add vancomycin 1 dose, repeat cultures, consult ID Worsening renal function, nephrology initiated hemodialysis today, patient is critically ill, very poor prognosis, with multiple comorbidities And critical issues. Section Weaver recommendations noted and appreciated 12/02; Gram positive bacteremia/possible HCAP and sepsis, on cefepime and 1 dose Vanco. Nephrology initiated hemodialysis, ID consult. Patient is hypotensive, pulmonary critical recommended transfer to ICU and start vasopressors for close observation overnight. Dr. Padron discussed with patient's daughter over patient's telephone and discussed in detail patient's condition, new developments sepsis, renal failure on hemodialysis anticoagulation for DVT and severe cardiomyopathy, also discussed poor prognosis, and the plans of transferring the patient to ICU for close observation. Many questions, and answered all of them. dr. Padron also discussed with granddaughter at the bedside and patient was moved to ICU, She had numerous questions answered all of them and discussed the current condition prognosis and treatment plan. She verbalized understanding 12/03: Patient was transferred to ICU yesterday evening for hypotension however she did not need to be started on any vasopressin therapy. Patient is on p.o. midodrine and all her antihypertensives have been held. She also received albumin bolus. Patient will be transferred to the floor today. Still complains of bilateral lower extremity pain. Patient is on cefepime and she is scheduled for dialysis today. 12/04: Some complaint of leg pain. Percocet given for pain control. Patient is very deconditioned, will need aggressive PT. Will work on d/c planning with cm. 12/05: Patient does not appear to be in distress this AM. tachycardic hr on encounter and overnight, was given diltiazem by servicing manager. Cardiology initiated metoprolol and amiodorone on patient this morning. She denies any pain except for discomfort in left lower extremity. Controlled with percocet. She also states that she does not have any urine output and has been constipated. Will order bowel regimen. Discharge needs discussed with CM which include Lifevest, BIPAP for nightly use, and possible set up for dialysis. She was visiting on a visa to the from [place] however is technically a citizen of [place] which makes placement a continued challenge. 12/06: Case management reports patient will need LifeVest, walker, CPAP and arrangements for outpatient hemodialysis. However, patient is uninsured. I discussed with the daughter Eva plans for home hospice. Eva reports that she is willing to have hospice to obtain additional resources but is not wanting palliative care/comfort measures. 12/07: Awaiting LifeVest and outpatient HD arrangements. I d/w CM discharge planning. Pt still with heparin drip but amiodarone changed to p.o. 200mg BID. Cont. Metoprolol 50mg BID. Hold LAYO and ARB for renal fxn. Patient for outpatient ischemic evaluation per Cardiology. Leukocytosis likely related to retroperitoneal hematoma. ID wants to monitor off abx. 12/08: Awaiting LifeVest and outpatient HD arrangements. I d/w CM discharge planning. Pt still with heparin drip. Await cardiology recommendations to transition to p.o. anticoagulation. Patient for outpatient ischemic evaluation per Cardiology. Leukocytosis likely related to retroperitoneal hematoma. Continue to monitor off antibiotics. Continue volume management per nephrology with hemodialysis 12/09: Patient with PermCath placement today. Nephrology reports patient hypotensive during hemodialysis and started 10 mg of midodrine for hypotension. Losartan discontinued. Continue to obtain daily weights and Strict I/O's. Renally dose medications and avoid nephrotoxic agents. Patient for outpatient ischemic evaluation per Cardiology. Leukocytosis likely related to retroperitoneal hematoma. Continue to monitor off antibiotics. Awaiting LifeVest and outpatient HD arrangements. 12/10: Continue hemodialysis per nephrology recommendations. We will discontinue heparin drip and start Eliquis 5 mg p.o. twice daily for anticoagulation. Blood pressure appears to be improved. Continue midodrine. Continue to obtain daily weights and Strict I/O's. Renally dose medications and avoid nephrotoxic agents. Patient for outpatient ischemic evaluation per Cardiology. Leukocytosis likely related to retroperitoneal hematoma. Continue to monitor off antibiotics. Awaiting LifeVest and outpatient HD arrangements. 12/11: Cardiology plans for Lexiscan in a.m. Continue hemodialysis per nephrology recommendations. We will discontinue heparin drip and start Eliquis 5 mg p.o. twice daily for anticoagulation. Blood pressure appears to be improved. Continue midodrine. Continue to obtain daily weights and Strict I/O's. Renally dose medications and avoid nephrotoxic agents. 12/12: Lexiscan this morning per cardiology. Continue hemodialysis per nephrolog y recommendations. Continue Eliquis for anticoagulation. Continue midodrine. Continue to obtain daily weights and Strict I/O's. Renally dose medications and avoid nephrotoxic agents. 12/14; Lexiscan test yesterday was negative for ischemia, patient receiving physical therapy, hemodialysis DC planning per case management. Hospice placement, multiple social issues 3;24; received 1 unit PRBC transfusion as patient has anemia with hemoglobin of 6.9 follow H&H and transfuse additional PRBC as needed DC planning per case management 3;25; patient had episode of rectal bleeding/melena this afternoon, patient received 1 unit PRBC yesterday for hemoglobin of 6.9 which improved to 8.2 Closely monitor H&H and transfuse additional PRBC as needed, GI consulted[discussed with Dr. Austyn Saleh] Hold Eliquis, I discussed in detail with the patient and her daughter about her recent benefits and consequences of holding Eliquis in the setting of DVT and A. fib due to severe bleeding, they verbalized understanding, patient does not have new episodes of bleeding we will resume Eliquis and closely monitor 12/17; patient did not have any new episodes of rectal bleeding, hemoglobin and hematocrit is stable, initially planning to discharge the patient home, however patient had hyperkalemia, nephrology scheduled for stat hemodialysis today, they wanted to closely monitor. Possible discharge in 1 to 2 days if cleared by nephrology. 12/18; patient's renal function is better today, no dialysis, hemoglobin above 8, hemodynamically stable Possible discharge tomorrow if patient is stable and cleared by nephrology 12/19; patient is being discharged home today, discussed with case management team, discussed with other consultants who cleared. Discussed with patient's daughter Ms. Eva Brown. 12/20; patient was discharged today however did not go till now, will continue current management DC planning per Case management History Interval history: Patient was initially discharged home yesterday, did not leave Patient again discharged today, did not believe to this time DC planning per case management Seen and examined the patient this morning Feels slightly better Complains of weakness Hospitalist Physical - Constitutional Vitals: Temp Pulse Resp BP Pulse Ox 97.8 F 114 H 20 134/92 97 12/21/21 16:00 12/21/21 16:00 12/21/21 16:00 12/21/21 16:00 12/21/21 16:00 General appearance: Present: no acute distress, well-nourished, obese (Morbidly obese), other (Minimally communicative) - EENT Eyes: Present: PERRL, EOM intact - Neck Neck: Present: supple, normal ROM - Respiratory Respiratory effort: normal Respiratory: bilateral: diminished, negative: rales, rhonchi, wheezing - Cardiovascular Rhythm: regular Heart Sounds: Present: S1 & S2 - Extremities Extremities: no ischemia, No edema - Abdominal General gastrointestinal: soft, non-tender, non-distended - Integumentary Integumentary: Present: clear, warm - Psychiatric Psychiatric: appropriate mood/affect, cooperative - Neurologic Neurologic: moves all extremities HEART Score - HEART Score Troponin: Troponin T 1.150 ng/mL (0.00-0.029) H* D 10/29/21 22:34 Results - Labs CBC & Chem 7: 12/20/21 05:22 12/22/21 10:00 Labs: Laboratory Last Values WBC 8.3 K/mm3 (4.5-11.0) 12/20/21 05: RBC 2.86 M/mm3 (3.65-5.03) L 12/20/21 05:22 Hgb 8.5 gm/dl (10.1-14.3) L 12/20/21 05:22 Hct 26.9 % (30.3-42.9) L 12/20/21 05:22 MCV 94 fl (79-97) 12/20/21 05:22 MCH 30 pg (28-32) 12/20/21 05:22 MCHC 32 % (30-34) 12/20/21 05:22 RDW 20.3 % (13.2-15.2) H 12/20/21 05:22 Plt Count 241 K/mm3 (140-440) 12/20/21 05:22 Lymph % (Auto) 16.9 % (13.4-35.0) 12/17/21 05:59 [place] % (Auto) 15.4 % (0.0-7.3) H 12/17/21 05:59 Eos % (Auto) 2.2 % (0.0-4.3) 12/17/21 05:59 Baso % (Auto) 1.2 % (0.0-1.8) 12/17/21 05:59 Lymph # (Auto) 1.2 K/mm3 (1.2-5.4) 12/17/21 05:59 [place] # (Auto) 1.1 K/mm3 (0.0-0.8) H 12/17/21 05:59 Eos # (Auto) 0.2 K/mm3 (0.0-0.4) 12/17/21 05:59 Baso # (Auto) 0.1 K/mm3 (0.0-0.1) 12/17/21 05:59 Add Manual Diff Complete 12/10/21 05:22 Total Counted 100 12/10/21 05:22 Seg Neutrophils % 64.3 % (40.0-70.0) 12/17/21 05:59 Seg Neuts % (Manual) 73.0 % (40.0-70.0) H 12/10/21 05:22 Band Neutrophils % 12.0 % 12/10/21 05:22 Lymphocytes % (Manual) 7.0 % (13.4-35.0) L 12/10/21 05:22 Reactive Lymphs % (Man) 0 % 12/10/21 05:22 Monocytes % (Manual) 1.0 % (0.0-7.3) 12/10/21 05:22 Eosinophils % (Manual) 1.0 % (0.0-4.3) 12/10/21 05:22 Basophils % (Manual) 2.0 % (0.0-1.8) H 12/10/21 05:22 Metamyelocytes % 0 % 12/10/21 05:22 Myelocytes % 4.0 % 12/10/21 05:22 Promyelocytes % 0 % 12/10/21 05:22 Blast Cells % 0 % 12/10/21 05:22 Nucleated RBC % 1.0 % (0.0-0.9) H 12/10/21 05:22 Seg Neutrophils # 4.6 K/mm3 (1.8-7.7) 12/17/21 05:59 Seg Neutrophils # Man 10.6 K/mm3 (1.8-7.7) H 12/10/21 05:22 Band Neutrophils # 1.7 K/mm3 12/10/21 05:22 Lymphocytes # (Manual) 1.0 K/mm3 (1.2-5.4) L 12/10/21 05:22 Abs React Lymphs (Man) 0.0 K/mm3 12/10/21 05:22 Monocytes # (Manual) 0.1 K/mm3 (0.0-0.8) 12/10/21 05:22 Eosinophils # (Manual) 0.1 K/mm3 (0.0-0.4) 12/10/21 05:22 Basophils # (Manual) 0.3 K/mm3 (0.0-0.1) H 12/10/21 05:22 Metamyelocytes # 0.0 K/mm3 12/10/21 05:22 Myelocytes # 0.6 K/mm3 12/10/21 05:22 Promyelocytes # 0.0 K/mm3 12/10/21 05:22 Blast Cells # 0.0 K/mm3 12/10/21 05:22 WBC Morphology Not Reportable 12/10/21 05:22 Hypersegmented Neuts Not Reportable 12/10/21 05:22 Hyposegmented Neuts Not Reportable 12/10/21 05:22 Hypogranular Neuts Not Reportable 12/10/21 05:22 Smudge Cells Not Reportable 12/10/21 05:22 Toxic Granulation Not Reportable 12/10/21 05:22 Toxic Vacuolation Not Reportable 12/10/21 05:22 Dohle Bodies Not Reportable 12/10/21 05:22 Pelger-Huet Anomaly Not Reportable 12/10/21 05:22 Manny Rods Not Reportable 12/10/21 05:22 Platelet Estimate Consistent w auto 12/10/21 05:22 Clumped Platelets Not Reportable 12/10/21 05:22 Plt Clumps, EDTA Not Reportable 12/10/21 05:22 Large Platelets Not Reportable 12/10/21 05:22 Giant Platelets Not Reportable 12/10/21 05:22 Platelet Satelliting Not Reportable 12/10/21 05:22 Plt Morphology Comment Not Reportable 12/10/21 05:22 RBC Morphology Not Reportable 12/10/21 05:22 Dimorphic RBCs Not Reportable 12/10/21 05:22 Polychromasia Not Reportable 12/10/21 05:22 Hypochromasia 1+ 12/10/21 05:22 Poikilocytosis Not Reportable 12/10/21 05:22 Anisocytosis 1+ 12/10/21 05:22 Microcytosis Not Reportable 12/10/21 05:22 Macrocytosis Not Reportable 12/10/21 05:22 Spherocytes Not Reportable 12/10/21 05:22 Pappenheimer Bodies Not Reportable 12/10/21 05:22 Sickle Cells Not Reportable 12/10/21 05:22 Target Cells Not Reportable 12/10/21 05:22 Tear Drop Cells Not Reportable 12/10/21 05:22 Ovalocytes Not Reportable 12/10/21 05:22 Helmet Cells Not Reportable 12/10/21 05:22 Maradiaga-Kiana Bodies Not Reportable 12/10/21 05:22 [place] Rings Not Reportable 12/10/21 05:22 [place] Cells Not Reportable 12/10/21 05:22 Bite Cells Not Reportable 12/10/21 05:22 Crenated Cell Not Reportable 12/10/21 05:22 Elliptocytes Not Reportable 12/10/21 05:22 Acanthocytes (Spur) Not Reportable 12/10/21 05:22 Rouleaux Not Reportable 12/10/21 05:22 Hemoglobin C Crystals Not Reportable 12/10/21 05:22 Schistocytes Not Reportable 12/10/21 05:22 Malaria parasites Not Reportable 12/10/21 05:22 Magdy Bodies Not Reportable 12/10/21 05:22 Hem Pathologist Commnt No 12/10/21 05:22 PT 16.8 Sec. (12.2-14.9) H 12/16/21 21:05 INR 1.22 (0.87-1.13) H 12/16/21 21:05 APTT 32.2 Sec. (24.2-36.6) 12/16/21 21:05 D-Dimer > 65199 ng/mlDDU (0-234) H 10/30/21 Unknown Heparin Anti-Xa Level Cancelled 12/11/21 13:08 ABG pH 7.333 pH Units (7.350-7.450) L 12/12/21 14:10 ABG pCO2 50.1 mm Hg 12/12/21 14:10 ABG pO2 57.0 mm Hg (80.0-90.0) L 12/12/21 14:10 ABG HCO3 26.0 mmol/L (20.0-26.0) 12/12/21 14:10 ABG O2 Saturation 88.0 % (95.0-99.0) L 12/12/21 14:10 ABG O2 Content 9.1 (0.0-44) 12/12/21 14:10 ABG Base Excess 0.0 mmol/L (-2.0-3.0) 12/12/21 14:10 ABG Hemoglobin 7.6 gm/dl (12.0-16.0) L 12/12/21 14:10 ABG Carboxyhemoglobin 2.2 % (0.0-5.0) 12/12/21 14:10 ABG Methemoglobin 0.7 % (0.0-1.5) 12/12/21 14:10 Oxyhemoglobin 85.4 % (95.0-99.0) L 12/12/21 14:10 FiO2 21 % 12/12/21 14:10 Sodium 138 mmol/L (137-145) 12/20/21 05:22 Potassium 4.8 mmol/L (3.6-5.0) 12/20/21 05:22 Chloride 100.0 mmol/L (98-107) 12/20/21 05:22 Carbon Dioxide 28 mmol/L (22-30) 12/20/21 05:22 Anion Gap 15 mmol/L 12/20/21 05:22 BUN 40 mg/dL (7-17) H 12/20/21 05:22 Creatinine 1.5 mg/dL (0.6-1.2) H 12/20/21 05:22 Estimated GFR 42 ml/min 12/20/21 05:22 BUN/Creatinine Ratio 27 % 12/20/21 05:22 Glucose 120 mg/dL (65-100) H 12/20/21 05:22 POC Glucose 127 mg/dL (70-105) H 12/21/21 16:27 Hemoglobin A1c 6.7 % (4-6) H 10/31/21 04:30 Lactic Acid 0.70 mmol/L (0.7-2.0) 10/31/21 15:45 Calcium 9.6 mg/dL (8.4-10.2) 12/20/21 05:22 Phosphorus 5.20 mg/dL (2.5-4.5) H 12/02/21 03:22 Magnesium 1.60 mg/dL (1.7-2.3) L 11/19/21 14:38 Ferritin 208.4 ng/mL (10.0-200.0) H 10/30/21 Unknown Total Bilirubin 0.40 mg/dL (0.1-1.2) 12/14/21 06:36 Direct Bilirubin < 0.2 mg/dL (0-0.2) 12/14/21 06:36 Indirect Bilirubin 0.2 mg/dL 12/14/21 06:36 AST 12 units/L (5-40) 12/14/21 06:36 ALT < 5 units/L (7-56) L 12/14/21 06:36 Alkaline Phosphatase 81 units/L (35-129) 12/14/21 06:36 Ammonia 31.0 umol/L (25-60) 10/29/21 15:10 Lactate Dehydrogenase 469 units/L (91-180) H 10/30/21 Unknown Troponin T 1.150 ng/mL (0.00-0.029) H* D 10/29/21 22:34 C-Reactive Protein 13.40 mg/dL (0.00-1.30) H 10/30/21 Unknown Total Protein 6.0 g/dL (6.3-8.2) L 12/14/21 06:36 Albumin 3.0 g/dL (3.9-5) L 12/14/21 06:36 Albumin/Globulin Ratio 1.0 % 12/14/21 06:36 Triglycerides 68 mg/dL (2-149) 10/29/21 19:40 Cholesterol 98 mg/dL (50-199) 10/29/21 19:40 LDL Cholesterol Direct 43 mg/dL (50-130) L 10/29/21 19:40 HDL Cholesterol 50 mg/dL (40-59) 10/29/21 19:40 Cholesterol/HDL Ratio 1.96 % 10/29/21 19:40 Procalcitonin 61.95 ng/mL (<0.15) 10/30/21 Unknown TSH 3.080 mlU/mL (0.270-4.200) 10/29/21 15:10 Urine Color Yellow (Yellow) 11/13/21 08:30 Urine Turbidity Slightly-cloudy (Clear) 11/13/21 08:30 Urine pH 6.0 (5.0-7.0) 11/13/21 08:30 Ur Specific [place] 1.010 (1.003-1.030) 11/13/21 08:30 Urine Protein <15 mg/dl mg/dL (Negative) 11/13/21 08:30 Urine Glucose (UA) Neg mg/dL (Negative) 11/13/21 08:30 Urine Ketones Tr mg/dL (Negative) 11/13/21 08:30 Urine Blood Sm (Negative) 11/13/21 08:30 Urine Nitrite Neg (Negative) 11/13/21 08:30 Urine Bilirubin Neg (Negative) 11/13/21 08:30 Urine Urobilinogen < 2.0 mg/dL (<2.0) 11/13/21 08:30 Ur Leukocyte Esterase Neg (Negative) 11/13/21 08:30 Urine WBC (Auto) < 1.0 /HPF (0.0-6.0) 11/13/21 08:30 Urine RBC (Auto) < 1.0 /HPF (0.0-6.0) 11/13/21 08:30 U Epithel Cells (Auto) < 1.0 /HPF (0-13.0) 11/13/21 08:30 Urine Mucus Few /HPF 10/29/21 18:15 Urine Eosinophils None seen (None Seen) 11/04/21 Unknown Urine Creatinine 190.9 mg/dL (0.1-20.0) H 11/04/21 Unknown Protein/Creatinin Ratio 0.90 11/04/21 Unknown Urine Sodium 10 mmol/L 11/04/21 Unknown Urine Total Protein 172 mg/dL (5-11.8) H 11/04/21 Unknown Salicylates < 0.3 mg/dL (2.8-20.0) L 10/29/21 15:10 Urine Opiates Screen Negative 10/29/21 18:15 Urine Methadone Screen Negative 10/29/21 18:15 Acetaminophen 5.0 ug/mL (10.0-30.0) L 10/29/21 15:10 Ur Barbiturates Screen Negative 10/29/21 18:15 Ur Phencyclidine Scrn Negative 10/29/21 18:15 Ur Amphetamines Screen Negative 10/29/21 18:15 U Benzodiazepines Scrn Negative 10/29/21 18:15 Urine Cocaine Screen Negative 10/29/21 18:15 U Marijuana (THC) Screen Negative 10/29/21 18:15 Drugs of Abuse Note Disclamer 10/29/21 18:15 Plasma/Serum Alcohol < 0.01 % (0-0.07) 10/29/21 15:10 Coronavirus (PCR) Negative (Negative) 10/30/21 Unknown Hepatitis A IgM Ab Non-reactive (NonReactive) 12/01/21 19:36 Hep Bs Antigen Non-reactive (Negative) 12/01/21 19:36 Hep B Core IgM Ab Non-reactive (NonReactive) 12/01/21 19:36 Hepatitis C Antibody Non-reactive (NonReactive) 12/01/21 19:36 Blood Type O POSITIVE 12/15/21 12:08 Antibody Screen Negative 12/15/21 12:08 Crossmatch See Detail 12/15/21 12:08 Krishna/IV: Voiding Method External Female Catheter Active Medications - Current Medications Current Medications: Generic Name Dose Route Start Last Admin Trade Name Freq PRN Reason Stop Dose Admin Acetaminophen 650 mg 10/29/21 17:04 11/12/21 22:53 Acetaminophen 650 Mg Rect Supp GA 650 mg Q6H PRN Administration Pain MILD(1-3)/Fever >100.5/NIEVES Acetaminophen 650 mg 11/19/21 16:35 12/21/21 14:50 Acetaminophen 325 Mg Tab PO 650 mg Q6HR PRN Administration PAIN Albumin Human 50 gm 12/02/21 11:00 12/15/21 13:00 Albumin Human 25% (25 Gm/100 Ml) Inj IV 50 gm ZACH PRN Administration Hypotension Alprazolam 0.25 mg 11/14/21 14:29 12/21/21 14:51 Alprazolam 0.25 Mg Tab PO 0.25 mg Q8H PRN Administration Anxiety Amiodarone HCl 200 mg 12/13/21 22:00 12/21/21 10:00 Amiodarone 200 Mg Tab PO Not Given BID RAMON Apixaban 5 mg 12/16/21 22:00 12/21/21 10:00 Apixaban 5 Mg Tab PO Not Given Q12HR [facility] Protocol Docusate Sodium 100 mg 11/18/21 15:00 12/21/21 10:00 Docusate Sodium 100 Mg Cap PO Not Given BID RAMON Epoetin [place]-epbx 10,000 unit 12/06/21 10:00 12/15/21 15:15 Epoetin [place]-Epbx 10,000 Unit/1 Ml Vial IV 10,000 unit ZACH PRN Administration hemodialysis Famotidine 10 mg 11/06/21 10:00 12/21/21 10:00 Famotidine 10 Mg Tab PO Not Given BID RAMON Furosemide 40 mg 12/20/21 18:00 12/21/21 18:42 Furosemide 40 Mg Tab PO 40 mg 0600,1800 RAMON Administration Gabapentin 100 mg 11/28/21 14:00 12/21/21 14:50 Gabapentin 100 Mg Cap PO 100 mg Q8HR RAMON Administration Hydrophilic Ointment 1 applic 10/29/21 14:29 11/09/21 08:51 Lip Therapy Vaseline TP 1 applic Q2HR PRN Administration Dry Lips Sodium Chloride 100 mls @ 999 mls/hr 12/17/21 08:21 Nacl 0.9% IV ZACH PRN Hypotension Insulin Human Lispro 0 unit 11/25/21 22:00 12/21/21 17:03 Insulin Lispro 100 Unit/Ml SUB-Q Not Given ACHS [facility] Protocol Magnesium Hydroxide 30 ml 12/16/21 11:00 12/18/21 21:17 Magnesium Hydroxide (Mom) Oral Liqd Udc PO 30 ml Q4H PRN Administration Constipation Melatonin 10 mg 11/22/21 17:31 12/13/21 22:09 Melatonin 5 Mg Tab PO 10 mg QHS PRN Administration Sleep Metoprolol Tartrate 100 mg 12/07/21 11:00 12/21/21 10:00 Metoprolol Tartrate 50 Mg Tab PO Not Given BID [facility] Midodrine 10 mg 12/01/21 12:00 12/21/21 17:07 Midodrine 5 Mg Tab PO Not Given TID@0800,1200,1600 [facility] Morphine Sulfate 1 mg 11/28/21 15:00 12/10/21 16:34 Morphine 2 Mg/1 Ml Inj IV 1 mg Q4H PRN Administration Pain, Moderate (4-6) Multi-Ingred Cream/Lotion/Oil/Oint 1 applic 10/29/21 14:29 11/06/21 09:25 Mineral Oil/Petrolatum, White Ophth Oint 3.5 Gm OU 1 applic Q4HR PRN Administration Dry Eye(s) Oxycodone/Acetaminophen 1 tab 11/27/21 14:31 12/17/21 22:32 Oxycodone /Acetaminophen 5-325mg Tab PO 1 tab Q4H PRN Administration Pain, Moderate (4-6) Sodium Chloride 10 ml 10/29/21 22:00 12/21/21 10:00 Sodium Chloride 0.9% 10 Ml Flush Syringe IV Not Given BID [facility] Sodium Chloride 10 ml 10/29/21 17:04 Sodium Chloride 0.9% 10 Ml Flush Syringe IV PRN PRN LINE FLUSH Nutrition/Malnutrition Assess - Dietary Evaluation Nutrition/Malnutrition Findings: Nutrition Notes Start: 10/30/21 09:50 Freq: Status: Active Protocol: Document 12/14/21 17:12 MEENU (Rec: 12/14/21 17:44 MEENU [id number]) Nutrition Notes Initial or Follow up Reassessment Current Diagnosis Acute Kidney Injury,Sepsis, Hypertension,Respiratory Failure Other Pertinent Diagnosis s/p Cardiopulmonary Arrest, Anemia, SIERRA/CKD+HD prn, Pneumonia, Hyponatremia Current Diet Renal Diet (since B 12/14). Labs/Tests 12/14: Na 132, BUN 43, Crea 1. 9. Pertinent Medications 12/14: Albumin 50 gm, others nutritionally unremarkable. Height 5 ft 10 in Weight 117.6 kg [place] Body Weight (kg) 68.18 BMI 37.2 Weight change and time frame 2.8 Kg body weigh gain reported in 9 days. Weight Status Obese Subjective/Other Information RD consult for routine F/U on Dietary tolerance. No indication for Mechanical Soft diet found, I discontinued the indication, will assess at F/U. RN note 12/13: Assist with dinner. eat 40% of meal. Per MD, fluid restriction to 1 ,000 ml/day, according to Progress note. Percent of energy/protein needs met: Prescribed Renal Diet provides for energy/protein needs (2, 072 Kcal/77 g) during LOS. Burn Absent Trauma Absent GI Symptoms None Food Allergy No Skin Integrity/Comment Assessment WNL. Current % PO Poor (25-49%) Minimum of two criteria No #1 Nutrition Diagnosis Inadequate oral intake Comments: Pt's PO intake of meals has been at 40%, and well tolerated, according to RN notes. Diet advanced to Renal. Diagnosis Progress(for reassessment Continues documentation) Is patient on ventilator? No Is Patient Ambulatory and/or Out of Bed No REE-([facility]-confined to bed) [phone] Kcal/Kg value to use for calculation 14 Approximate Energy Requirements Using 1646 kcal/Kg Calculation Used for Recommendations Kcal/kg Additional Notes Protein: >1.2 g/Kg AdjBW; >110 g/day. Fluids: 1-1.5 L/day, or as per MD. Nutrition Intervention Change Diet Order: Resume Renal Diet. Add Supplement/Snack (indicate name/kcal 8 fl oz nepro w/CARBSTEADY; /protein ) BID. Provides kCal: 850 Provides Protein (gm) 38 Goal #1 Compensate, through dietary supplementation, for possible poor or insufficient PO intake of meals during LOS. Goal #2 Maintain body weight within +/ -3% of admission body weight during LOS. Follow-Up By: 12/21/21 Additional Comments Continue monitoring food tolerance, %PO intake of meals , and BM.
[2021-12-22] MEDS: FUROSEMIDE 40 MG TAB PO SCH ×2 (05:38→18:26)
[2021-12-22] MEDS: GABAPENTIN 100 MG CAP PO SCH ×3 (06:04→21:57)
--- NOTE | 2021-12-22 09:47 | Progress Note ---
Assessment and Plan Acute Renal Failure secondary to Ischemic ATN secondary to Sepsis, Cardiac arrest and Hypotension S/P Cardiac Arrest Acute Hypoxemic Respiratory Failure Acute DVT Sepsis CHF Anemia Hyperkalemia Hyponatremia Plan: labs are pnding from AM can be discharged from renal standpoint today,to be followed as an outpatient with labs within 1-2 weeks. CHF-LVEF 25-30 % Anemia-On Epogen Obtain daily weights Strict I/O's daily Renally dose medications Avoid nephrotoxic agents will sign off. Subjective Date of service: 12/22/21 Principal diagnosis: AHRF; Cardiac arrest; R. pneumothorax; pneumonia; AMS; DVT's; SIERRA; Obesity Interval history: no overnight events Objective - Vital Signs Vital signs: Vital Signs - 12hr 12/21/21 12/21/21 12/22/21 22:06 23:10 03:12 Temperature 98.1 F 97.4 F L Pulse Rate 47 L 72 Respiratory 18 18 Rate Blood Pressure 127/93 114/79 O2 Sat by Pulse 98 100 96 Oximetry 12/22/21 12/22/21 12/22/21 07:09 09:16 09:26 Temperature 98.0 F Pulse Rate 64 Respiratory 18 Rate Blood Pressure 111/56 O2 Sat by Pulse 96 99 100 Oximetry - Lab 12/20/21 05:22 12/20/21 05:22 Most recent lab results ABG pH 7.333 pH Units (7.350-7.450) L 12/12/21 14:10 ABG pCO2 50.1 mm Hg 12/12/21 14:10 ABG pO2 57.0 mm Hg (80.0-90.0) L 12/12/21 14:10 ABG HCO3 26.0 mmol/L (20.0-26.0) 12/12/21 14:10 ABG O2 Saturation 88.0 % (95.0-99.0) L 12/12/21 14:10 Calcium 9.6 mg/dL (8.4-10.2) 12/20/21 05:22 Phosphorus 5.20 mg/dL (2.5-4.5) H 12/02/21 03:22 Magnesium 1.60 mg/dL (1.7-2.3) L 11/19/21 14:38 Urine Creatinine 190.9 mg/dL (0.1-20.0) H 11/04/21 Unknown Urine Sodium 10 mmol/L 11/04/21 Unknown Urine Total Protein 172 mg/dL (5-11.8) H 11/04/21 Unknown Medications & Allergies - Medications Allergies/Adverse Reactions: Allergies No Known Allergies Allergy (Verified 10/29/21 14:01) Home Medications: Home Medications Medication Instructions Recorded Confirmed Last Taken Type ALPRAZolam [Xanax TAB] 0.25 mg PO Q8H PRN #15 tablet 12/19/21 Unknown Rx Amiodarone [Cordarone 200 MG TAB] 200 mg PO BID #60 tablet 12/19/21 Unknown Rx Apixaban [Eliquis] 5 mg PO Q12HR #60 tablet 12/19/21 Unknown Rx Docusate Sodium [Colace CAP] 100 mg PO BID #30 capsule 12/19/21 Unknown Rx Famotidine [Pepcid] 10 mg PO BID #30 tablet 12/19/21 Unknown Rx Gabapentin 100 mg PO Q8HR #60 capsule 12/19/21 Unknown Rx Melatonin [Melatonin 5MG TAB] 10 mg PO QHS PRN #10 tablet 12/19/21 Unknown Rx Metoprolol [Lopressor TAB] 100 mg PO BID #60 tablet 12/19/21 Unknown Rx oxyCODONE /ACETAMINOPHEN [Percocet 1 tab PO Q4H PRN #20 tablet 12/19/21 Unknown Rx 5/325 mg] Active Medications: Generic Name Dose Route Start Last Admin Trade Name Freq PRN Reason Stop Dose Admin Acetaminophen 650 mg 10/29/21 17:04 11/12/21 22:53 Acetaminophen 650 Mg Rect Supp [place] 650 mg Q6H PRN Administration Pain MILD(1-3)/Fever >100.5/NIEVES Acetaminophen 650 mg 11/19/21 16:35 12/21/21 14:50 Acetaminophen 325 Mg Tab PO 650 mg Q6HR PRN Administration PAIN Albumin Human 50 gm 12/02/21 11:00 12/15/21 13:00 Albumin Human 25% (25 Gm/100 Ml) Inj IV 50 gm ZACH PRN Administration Hypotension Alprazolam 0.25 mg 11/14/21 14:29 12/21/21 14:51 Alprazolam 0.25 Mg Tab PO 0.25 mg Q8H PRN Administration Anxiety Amiodarone HCl 200 mg 12/13/21 22:00 12/21/21 23:00 Amiodarone 200 Mg Tab PO 200 mg BID RAMON Administration Apixaban 5 mg 12/16/21 22:00 12/21/21 23:00 Apixaban 5 Mg Tab PO 5 mg Q12HR RAMON Administration Protocol Docusate Sodium 100 mg 11/18/21 15:00 12/21/21 23:00 Docusate Sodium 100 Mg Cap PO 100 mg BID RAMON Administration Epoetin [place]-epbx 10,000 unit 12/06/21 10:00 12/15/21 15:15 Epoetin [place]-Epbx 10,000 Unit/1 Ml Vial IV 10,000 unit ZACH PRN Administration hemodialysis Famotidine 10 mg 11/06/21 10:00 12/21/21 23:00 Famotidine 10 Mg Tab PO 10 mg BID RAMON Administration Furosemide 40 mg 12/20/21 18:00 12/22/21 05:38 Furosemide 40 Mg Tab PO 40 mg 0600,1800 RAMON Administration Gabapentin 100 mg 11/28/21 14:00 12/22/21 06:04 Gabapentin 100 Mg Cap PO 100 mg Q8HR RAMON Administration Hydrophilic Ointment 1 applic 10/29/21 14:29 11/09/21 08:51 Lip Therapy Vaseline TP 1 applic Q2HR PRN Administration Dry Lips Sodium Chloride 100 mls @ 999 mls/hr 12/17/21 08:21 Nacl 0.9% IV ZACH PRN Hypotension Insulin Human Lispro 0 unit 11/25/21 22:00 12/21/21 23:00 Insulin Lispro 100 Unit/Ml SUB-Q Not Given ACHS [facility] Protocol Magnesium Hydroxide 30 ml 12/16/21 11:00 12/18/21 21:17 Magnesium Hydroxide (Mom) Oral Liqd Udc PO 30 ml Q4H PRN Administration Constipation Melatonin 10 mg 11/22/21 17:31 12/13/21 22:09 Melatonin 5 Mg Tab PO 10 mg QHS PRN Administration Sleep Metoprolol Tartrate 100 mg 12/07/21 11:00 12/21/21 23:00 Metoprolol Tartrate 50 Mg Tab PO 100 mg BID RAMON Administration Midodrine 10 mg 12/01/21 12:00 12/21/21 17:07 Midodrine 5 Mg Tab PO Not Given TID@0800,1200,1600 [facility] Morphine Sulfate 1 mg 11/28/21 15:00 12/10/21 16:34 Morphine 2 Mg/1 Ml Inj IV 1 mg Q4H PRN Administration Pain, Moderate (4-6) Multi-Ingred Cream/Lotion/Oil/Oint 1 applic 10/29/21 14:29 11/06/21 09:25 Mineral Oil/Petrolatum, White Ophth Oint 3.5 Gm OU 1 applic Q4HR PRN Administration Dry Eye(s) Oxycodone/Acetaminophen 1 tab 11/27/21 14:31 12/17/21 22:32 Oxycodone /Acetaminophen 5-325mg Tab PO 1 tab Q4H PRN Administration Pain, Moderate (4-6) Sodium Chloride 10 ml 10/29/21 22:00 12/21/21 22:06 Sodium Chloride 0.9% 10 Ml Flush Syringe IV 10 ml BID RAMON Administration Sodium Chloride 10 ml 10/29/21 17:04 Sodium Chloride 0.9% 10 Ml Flush Syringe IV PRN PRN LINE FLUSH
[2021-12-22] MEDS: METOPROLOL TARTRATE 50 MG TAB PO SCH ×2 (10:30→21:57)
[2021-12-22] MEDS: DOCUSATE SODIUM 100 MG CAP PO SCH ×2 (10:31→21:57)
[2021-12-22] MEDS: MIDODRINE 5 MG TAB PO SCH ×3 (10:31→18:26)
[2021-12-22] MEDS: AMIODARONE 200 MG TAB PO SCH ×2 (10:31→21:57)
[2021-12-22] MEDS: FAMOTIDINE 10 MG TAB PO SCH ×2 (10:31→21:56)
[2021-12-22] MEDS: APIXABAN 5 MG TAB PO SCH ×2 (10:31→21:57)
[2021-12-22] MEDS: INSULIN LISPRO 100 UNIT/ML SUB-Q SCH ×4 (10:32→21:58)
[2021-12-22] MEDS: oxyCODONE /ACETAMINOPHEN 5-325MG TAB PO PRN (10:57)
[2021-12-22 11:20] LABS: Calcium 8.8 mg/dL (8.4-10.2)
--- NOTE | 2021-12-22 12:14 | Progress Note ---
Assessment and Plan Acute hypoxemic respiratory failure on MVS Cardiac arrest with ROSC Acute DVT Right pneumothorax Shock (septic +/- cardiogenic) Possible aspiration pneumonia SIERRA Altered mental status/acute encephalopathy Elevated serum transaminases, likely shock liver Metabolic acidosis Obesity Retro-peritoneal Hematoma Leukocytosis Hypokalemia Lactic acidosis - case management working on discharge - continue life vest; ACS w/up per cardiology - outpatient pulmonary clinic f/up post discharge - continue anticoagulation while following H&H closely - continue care as below otherwise; - continue to wean supplemental oxygen for target O2 sat's > 90% acutely - continue Midodrine for BP support - continue BIPAP scheduled qhs with prn daytime use - aspiration precautions - continue bronchodilators with pulmonary hygiene per RT - continue accuchecks with glycemic control per SSI (While critically ill target blood glucose of 140-180 mg/dL; avoid hypoglycemia) - avoid nephrotoxins, renally dose all medications - continue to avoid benzodiazepine's, reduce the possibility of delirium - AB's per ID rec's - prn analgesia per pain score - Maintenance of sleep-wake cycle, avoid delirium - G.I. & VTE prophylaxis - PT/OT/ROM exercises - continue mobility protocols for pressure ulcer prophylaxis - Monitor hemodynamics closely - continue other care per attending / other consultants - discharge planning ok pulmonary-[facility] COVID SPECIFIC INTERVENTIONS - COVID-19 PCR negative .... Re-evaluate in am & prn Subjective Date of service: 12/22/21 Principal diagnosis: AHRF; Cardiac arrest; R. pneumothorax; pneumonia; AMS; DVT's; SIERRA; Obesity Interval history: Patient is seen today for: Acute hypoxemic respiratory failure; Cardiac arrest with ROSC; Right pneumothorax; pneumonia; AMS; bilateral DVT's; SIERRA; Obesity Seen and examined at bedside; 24hour events reviewed; nursing and respiratory care staff consulted; no adverse overnight events reported to me; resting in bed; remains on supplemental oxygen; Objective Vital Signs - 12hr 12/22/21 12/22/21 12/22/21 03:12 07:09 09:16 Temperature 97.4 F L 98.0 F Pulse Rate 72 64 Respiratory 18 18 Rate Blood Pressure 114/79 111/56 Blood Pressure [Left] O2 Sat by Pulse 96 96 99 Oximetry 12/22/21 12/22/21 12/22/21 09:26 10:30 11:01 Temperature 97.9 F Pulse Rate 118 H 103 H Respiratory 20 Rate Blood Pressure Blood Pressure 116/76 [Left] O2 Sat by Pulse 100 99 Oximetry Constitutional: no acute distress, alert, other (elderly obese female with mildly increased respiratory effort at rest ) Eyes: non-icteric ENT: oropharynx moist Neck: supple, no lymphadenopathy, no JVD, other (large circumference) Effort: mildly labored Ascultation: Bilateral: clear, diminished breath sounds, rhonchi (bases) Percussion: Bilateral: not dull Cardiovascular: regular rate and rhythm, other (no R/M) Gastrointestinal: normoactive bowel sounds, soft, non-tender, other (obese) Integumentary: normal, other (Left flank ecchymosis with induration) Extremities: no cyanosis, pulses normal, no ischemia or petechiae, edema (2+) Neurologic: normal mental status, non-focal exam (grossly), pupils equal and round, motor strength normal and (weak) Psychiatric: mood appropriate, affect normal CBC and BMP: 12/20/21 05:22 12/22/21 10:00 ABG, PT/INR, D-dimer: ABG ABG pH 7.333 pH Units (7.350-7.450) L 12/12/21 14:10 ABG pCO2 50.1 mm Hg 12/12/21 14:10 ABG pO2 57.0 mm Hg (80.0-90.0) L 12/12/21 14:10 ABG O2 Saturation 88.0 % (95.0-99.0) L 12/12/21 14:10 PT/INR, D-dimer PT 16.8 Sec. (12.2-14.9) H 12/16/21 21:05 INR 1.22 (0.87-1.13) H 12/16/21 21:05 D-Dimer > 87622 ng/mlDDU (0-234) H 10/30/21 Unknown Abnormal lab findings: Abnormal Labs 10/29/21 10/29/21 10/29/21 15:10 15:10 15:10 WBC 27.8 H RBC Hgb Hct MCH 27 L RDW Plt Count Lymph % (Auto) [place] % (Auto) Lymph # (Auto) [place] # (Auto) Seg Neutrophils % Seg Neuts % (Manual) 78.0 H Lymphocytes % (Manual) 10.0 L Monocytes % (Manual) Basophils % (Manual) Nucleated RBC % Seg Neutrophils # Seg Neutrophils # Man 21.7 H Lymphocytes # (Manual) Monocytes # (Manual) 1.4 H Eosinophils # (Manual) Basophils # (Manual) PT INR APTT D-Dimer Heparin Anti-Xa Level ABG pH ABG pO2 ABG HCO3 ABG O2 Saturation ABG Base Excess ABG Hemoglobin Oxyhemoglobin Sodium Potassium Chloride Carbon Dioxide BUN Creatinine Glucose POC Glucose Hemoglobin A1c Lactic Acid 6.80 H* Calcium Phosphorus Magnesium Ferritin AST ALT Alkaline Phosphatase Lactate Dehydrogenase Troponin T 0.089 H C-Reactive Protein Total Protein Albumin LDL Cholesterol Direct Urine Creatinine Urine Total Protein Salicylates Acetaminophen Crossmatch 10/29/21 10/29/21 10/29/21 15:10 15:10 15:10 WBC RBC Hgb Hct MCH RDW Plt Count Lymph % (Auto) [place] % (Auto) Lymph # (Auto) [place] # (Auto) Seg Neutrophils % Seg Neuts % (Manual) Lymphocytes % (Manual) Monocytes % (Manual) Basophils % (Manual) Nucleated RBC % Seg Neutrophils # Seg Neutrophils # Man Lymphocytes # (Manual) Monocytes # (Manual) Eosinophils # (Manual) Basophils # (Manual) PT INR APTT D-Dimer Heparin Anti-Xa Level ABG pH ABG pO2 ABG HCO3 ABG O2 Saturation ABG Base Excess ABG Hemoglobin Oxyhemoglobin Sodium 136 L Potassium 2.8 L* Chloride 93.4 L Carbon Dioxide 20 L BUN Creatinine Glucose 330 H POC Glucose Hemoglobin A1c Lactic Acid Calcium Phosphorus Magnesium Ferritin AST 1013 H ALT 1289 H Alkaline Phosphatase 246 H Lactate Dehydrogenase Troponin T C-Reactive Protein Total Protein Albumin LDL Cholesterol Direct Urine Creatinine Urine Total Protein Salicylates < 0.3 L Acetaminophen 5.0 L Crossmatch 10/29/21 10/29/21 10/29/21 15:11 16:01 19:29 WBC RBC Hgb Hct MCH RDW Plt Count Lymph % (Auto) [place] % (Auto) Lymph # (Auto) [place] # (Auto) Seg Neutrophils % Seg Neuts % (Manual) Lymphocytes % (Manual) Monocytes % (Manual) Basophils % (Manual) Nucleated RBC % Seg Neutrophils # Seg Neutrophils # Man Lymphocytes # (Manual) Monocytes # (Manual) Eosinophils # (Manual) Basophils # (Manual) PT INR APTT D-Dimer Heparin Anti-Xa Level ABG pH 7.307 L ABG pO2 64.1 L ABG HCO3 ABG O2 Saturation 90.8 L ABG Base Excess -2.9 L ABG Hemoglobin Oxyhemoglobin 89.3 L Sodium Potassium Chloride Carbon Dioxide BUN Creatinine Glucose POC Glucose Hemoglobin A1c Lactic Acid 2.60 H* Calcium Phosphorus Magnesium 2.90 H Ferritin AST ALT Alkaline Phosphatase Lactate Dehydrogenase Troponin T C-Reactive Protein Total Protein Albumin LDL Cholesterol Direct Urine Creatinine Urine Total Protein Salicylates Acetaminophen Crossmatch 10/29/21 10/29/21 10/30/21 19:40 22:34 04:30 WBC 16.2 H RBC Hgb Hct MCH 26 L RDW 15.5 H Plt Count Lymph % (Auto) 6.2 L Norman % (Auto) Lymph # (Auto) 1.0 L [place] # (Auto) 0.9 H Seg Neutrophils % 88.1 H Seg Neuts % (Manual) Lymphocytes % (Manual) Monocytes % (Manual) Basophils % (Manual) Nucleated RBC % Seg Neutrophils # 14.2 H Seg Neutrophils # Man Lymphocytes # (Manual) Monocytes # (Manual) Eosinophils # (Manual) Basophils # (Manual) PT INR APTT D-Dimer Heparin Anti-Xa Level ABG pH ABG pO2 ABG HCO3 ABG O2 Saturation ABG Base Excess ABG Hemoglobin Oxyhemoglobin Sodium Potassium Chloride Carbon Dioxide BUN Creatinine Glucose POC Glucose Hemoglobin A1c Lactic Acid Calcium Phosphorus Magnesium Ferritin AST ALT Alkaline Phosphatase Lactate Dehydrogenase Troponin T 1.950 H* D 1.150 H* D C-Reactive Protein Total Protein Albumin LDL Cholesterol Direct 43 L Urine Creatinine Urine Total Protein Salicylates Acetaminophen Crossmatch 10/30/21 10/30/21 10/30/21 04:30 04:35 05:45 WBC RBC Hgb Hct MCH RDW Plt Count Lymph % (Auto) [place] % (Auto) Lymph # (Auto) [place] # (Auto) Seg Neutrophils % Seg Neuts % (Manual) Lymphocytes % (Manual) Monocytes % (Manual) Basophils % (Manual) Nucleated RBC % Seg Neutrophils # Seg Neutrophils # Man Lymphocytes # (Manual) Monocytes # (Manual) Eosinophils # (Manual) Basophils # (Manual) PT INR APTT D-Dimer Heparin Anti-Xa Level ABG pH ABG pO2 69.5 L ABG HCO3 ABG O2 Saturation ABG Base Excess -2.7 L ABG Hemoglobin Oxyhemoglobin 94.7 L Sodium Potassium Chloride Carbon Dioxide 21 L BUN Creatinine Glucose 159 H POC Glucose 151 H Hemoglobin A1c Lactic Acid Calcium 7.9 L D Phosphorus Magnesium Ferritin AST 461 H ALT 686 H Alkaline Phosphatase 130 H Lactate Dehydrogenase Troponin T C-Reactive Protein Total Protein 5.6 L D Albumin 3.2 L LDL Cholesterol Direct Urine Creatinine Urine Total Protein Salicylates Acetaminophen Crossmatch 10/30/21 10/30/21 10/30/21 11:24 15:59 16:30 WBC RBC Hgb Hct MCH RDW Plt Count Lymph % (Auto) [place] % (Auto) Lymph # (Auto) [place] # (Auto) Seg Neutrophils % Seg Neuts % (Manual) Lymphocytes % (Manual) Monocytes % (Manual) Basophils % (Manual) Nucleated RBC % Seg Neutrophils # Seg Neutrophils # Man Lymphocytes # (Manual) Monocytes # (Manual) Eosinophils # (Manual) Basophils # (Manual) PT 17.2 H INR 1.27 H APTT 44.4 H D-Dimer Heparin Anti-Xa Level ABG pH ABG pO2 ABG HCO3 ABG O2 Saturation ABG Base Excess ABG Hemoglobin Oxyhemoglobin Sodium Potassium Chloride Carbon Dioxide BUN Creatinine Glucose POC Glucose 153 H 109 H Hemoglobin A1c Lactic Acid Calcium Phosphorus Magnesium Ferritin AST ALT Alkaline Phosphatase Lactate Dehydrogenase Troponin T C-Reactive Protein Total Protein Albumin LDL Cholesterol Direct Urine Creatinine Urine Total Protein Salicylates Acetaminophen Crossmatch 10/30/21 10/30/21 10/30/21 23:00 Unknown Unknown WBC RBC Hgb Hct MCH RDW Plt Count Lymph % (Auto) [place] % (Auto) Lymph # (Auto) [place] # (Auto) Seg Neutrophils % Seg Neuts % (Manual) Lymphocytes % (Manual) Monocytes % (Manual) Basophils % (Manual) Nucleated RBC % Seg Neutrophils # Seg Neutrophils # Man Lymphocytes # (Manual) Monocytes # (Manual) Eosinophils # (Manual) Basophils # (Manual) PT INR APTT D-Dimer > 71586 H Heparin Anti-Xa Level 0.82 H ABG pH ABG pO2 ABG HCO3 ABG O2 Saturation ABG Base Excess ABG Hemoglobin Oxyhemoglobin Sodium Potassium Chloride Carbon Dioxide BUN Creatinine Glucose POC Glucose Hemoglobin A1c Lactic Acid Calcium Phosphorus Magnesium Ferritin 208.4 H AST ALT Alkaline Phosphatase Lactate Dehydrogenase Troponin T C-Reactive Protein Total Protein Albumin LDL Cholesterol Direct Urine Creatinine Urine Total Protein Salicylates Acetaminophen Crossmatch 10/30/21 10/31/21 10/31/21 Unknown 04:30 04:30 WBC 14.4 H RBC Hgb Hct MCH 26 L RDW Plt Count Lymph % (Auto) [place] % (Auto) Lymph # (Auto) [place] # (Auto) Seg Neutrophils % Seg Neuts % (Manual) Lymphocytes % (Manual) Monocytes % (Manual) Basophils % (Manual) Nucleated RBC % Seg Neutrophils # Seg Neutrophils # Man Lymphocytes # (Manual) Monocytes # (Manual) Eosinophils # (Manual) Basophils # (Manual) PT INR APTT D-Dimer Heparin Anti-Xa Level ABG pH ABG pO2 ABG HCO3 ABG O2 Saturation ABG Base Excess ABG Hemoglobin Oxyhemoglobin Sodium Potassium 3.5 L Chloride 107.5 H Carbon Dioxide 20 L BUN 28 H Creatinine 1.7 H Glucose 113 H POC Glucose Hemoglobin A1c Lactic Acid Calcium 7.9 L Phosphorus Magnesium Ferritin AST ALT Alkaline Phosphatase Lactate Dehydrogenase 469 H Troponin T C-Reactive Protein 13.40 H Total Protein Albumin LDL Cholesterol Direct Urine Creatinine Urine Total Protein Salicylates Acetaminophen Crossmatch 10/31/21 10/31/21 10/31/21 04:30 05:11 15:30 WBC RBC Hgb Hct MCH RDW Plt Count Lymph % (Auto) [place] % (Auto) Lymph # (Auto) [place] # (Auto) Seg Neutrophils % Seg Neuts % (Manual) Lymphocytes % (Manual) Monocytes % (Manual) Basophils % (Manual) Nucleated RBC % Seg Neutrophils # Seg Neutrophils # Man Lymphocytes # (Manual) Monocytes # (Manual) Eosinophils # (Manual) Basophils # (Manual) PT INR APTT D-Dimer Heparin Anti-Xa Level ABG pH 7.222 L ABG pO2 61.5 L ABG HCO3 ABG O2 Saturation 86.2 L ABG Base Excess -6.3 L ABG Hemoglobin 11.2 L Oxyhemoglobin 84.5 L Sodium Potassium Chloride Carbon Dioxide BUN Creatinine Glucose POC Glucose 106 H Hemoglobin A1c 6.7 H Lactic Acid Calcium Phosphorus Magnesium Ferritin AST ALT Alkaline Phosphatase Lactate Dehydrogenase Troponin T C-Reactive Protein Total Protein Albumin LDL Cholesterol Direct Urine Creatinine Urine Total Protein Salicylates Acetaminophen Crossmatch 10/31/21 10/31/21 10/31/21 16:07 16:35 17:45 WBC RBC Hgb Hct MCH RDW Plt Count Lymph % (Auto) [place] % (Auto) Lymph # (Auto) [place] # (Auto) Seg Neutrophils % Seg Neuts % (Manual) Lymphocytes % (Manual) Monocytes % (Manual) Basophils % (Manual) Nucleated RBC % Seg Neutrophils # Seg Neutrophils # Man Lymphocytes # (Manual) Monocytes # (Manual) Eosinophils # (Manual) Basophils # (Manual) PT INR APTT D-Dimer Heparin Anti-Xa Level ABG pH 7.267 L ABG pO2 58.3 L ABG HCO3 ABG O2 Saturation 88.3 L ABG Base Excess -5.9 L ABG Hemoglobin 10.1 L Oxyhemoglobin 86.5 L Sodium Potassium Chloride Carbon Dioxide BUN Creatinine Glucose POC Glucose 115 H Hemoglobin A1c Lactic Acid Calcium Phosphorus Magnesium Ferritin AST ALT Alkaline Phosphatase Lactate Dehydrogenase Troponin T C-Reactive Protein Total Protein Albumin LDL Cholesterol Direct Urine Creatinine 383.6 H Urine Total Protein Salicylates Acetaminophen Crossmatch 11/01/21 11/01/21 11/01/21 00:06 05:08 06:00 WBC 12.6 H RBC 3.43 L Hgb 8.9 L Hct 28.7 L MCH 26 L RDW 15.7 H Plt Count 130 L Lymph % (Auto) [place] % (Auto) Lymph # (Auto) [place] # (Auto) Seg Neutrophils % Seg Neuts % (Manual) Lymphocytes % (Manual) Monocytes % (Manual) Basophils % (Manual) Nucleated RBC % Seg Neutrophils # Seg Neutrophils # Man Lymphocytes # (Manual) Monocytes # (Manual) Eosinophils # (Manual) Basophils # (Manual) PT INR APTT D-Dimer Heparin Anti-Xa Level ABG pH ABG pO2 ABG HCO3 ABG O2 Saturation ABG Base Excess ABG Hemoglobin Oxyhemoglobin Sodium Potassium Chloride Carbon Dioxide BUN Creatinine Glucose POC Glucose 114 H 120 H Hemoglobin A1c Lactic Acid Calcium Phosphorus Magnesium Ferritin AST ALT Alkaline Phosphatase Lactate Dehydrogenase Troponin T C-Reactive Protein Total Protein Albumin LDL Cholesterol Direct Urine Creatinine Urine Total Protein Salicylates Acetaminophen Crossmatch 11/01/21 11/01/21 11/01/21 06:00 11:43 14:00 WBC RBC Hgb Hct MCH RDW Plt Count Lymph % (Auto) [place] % (Auto) Lymph # (Auto) [place] # (Auto) Seg Neutrophils % Seg Neuts % (Manual) Lymphocytes % (Manual) Monocytes % (Manual) Basophils % (Manual) Nucleated RBC % Seg Neutrophils # Seg Neutrophils # Man Lymphocytes # (Manual) Monocytes # (Manual) Eosinophils # (Manual) Basophils # (Manual) PT INR APTT D-Dimer Heparin Anti-Xa Level ABG pH 7.349 L ABG pO2 75.6 L ABG HCO3 ABG O2 Saturation ABG Base Excess -3.9 L ABG Hemoglobin 9.8 L Oxyhemoglobin 93.5 L Sodium Potassium Chloride 114.1 H Carbon Dioxide 20 L BUN 33 H Creatinine Glucose 131 H POC Glucose 151 H Hemoglobin A1c Lactic Acid Calcium 7.7 L Phosphorus Magnesium Ferritin AST 79 H ALT 259 H Alkaline Phosphatase Lactate Dehydrogenase Troponin T C-Reactive Protein Total Protein 5.5 L Albumin 2.7 L LDL Cholesterol Direct Urine Creatinine Urine Total Protein Salicylates Acetaminophen Crossmatch 11/01/21 11/01/21 11/02/21 16:45 22:55 05:12 WBC RBC Hgb Hct MCH RDW Plt Count Lymph % (Auto) [place] % (Auto) Lymph # (Auto) [place] # (Auto) Seg Neutrophils % Seg Neuts % (Manual) Lymphocytes % (Manual) Monocytes % (Manual) Basophils % (Manual) Nucleated RBC % Seg Neutrophils # Seg Neutrophils # Man Lymphocytes # (Manual) Monocytes # (Manual) Eosinophils # (Manual) Basophils # (Manual) PT INR APTT D-Dimer Heparin Anti-Xa Level ABG pH ABG pO2 ABG HCO3 ABG O2 Saturation ABG Base Excess ABG Hemoglobin Oxyhemoglobin Sodium Potassium Chloride Carbon Dioxide BUN Creatinine Glucose POC Glucose 119 H 129 H 140 H Hemoglobin A1c Lactic Acid Calcium Phosphorus Magnesium Ferritin AST ALT Alkaline Phosphatase Lactate Dehydrogenase Troponin T C-Reactive Protein Total Protein Albumin LDL Cholesterol Direct Urine Creatinine Urine Total Protein Salicylates Acetaminophen Crossmatch 11/02/21 11/02/21 11/02/21 05:35 05:35 09:35 WBC 13.5 H RBC 3.60 L Hgb 9.7 L Hct MCH 27 L RDW 15.7 H Plt Count Lymph % (Auto) [place] % (Auto) Lymph # (Auto) [place] # (Auto) Seg Neutrophils % Seg Neuts % (Manual) Lymphocytes % (Manual) Monocytes % (Manual) Basophils % (Manual) Nucleated RBC % Seg Neutrophils # Seg Neutrophils # Man Lymphocytes # (Manual) Monocytes # (Manual) Eosinophils # (Manual) Basophils # (Manual) PT INR APTT D-Dimer Heparin Anti-Xa Level ABG pH 7.208 L ABG pO2 75.9 L ABG HCO3 ABG O2 Saturation 93.6 L ABG Base Excess -4.3 L ABG Hemoglobin 9.1 L Oxyhemoglobin 91.6 L Sodium Potassium 5.2 H D Chloride 112.6 H Carbon Dioxide BUN 32 H Creatinine Glucose 152 H POC Glucose Hemoglobin A1c Lactic Acid Calcium 8.2 L Phosphorus Magnesium 2.70 H Ferritin AST ALT Alkaline Phosphatase Lactate Dehydrogenase Troponin T C-Reactive Protein Total Protein Albumin LDL Cholesterol Direct Urine Creatinine Urine Total Protein Salicylates Acetaminophen Crossmatch 11/02/21 11/02/21 11/02/21 11:44 17:13 23:43 WBC RBC Hgb Hct MCH RDW Plt Count Lymph % (Auto) [place] % (Auto) Lymph # (Auto) [place] # (Auto) Seg Neutrophils % Seg Neuts % (Manual) Lymphocytes % (Manual) Monocytes % (Manual) Basophils % (Manual) Nucleated RBC % Seg Neutrophils # Seg Neutrophils # Man Lymphocytes # (Manual) Monocytes # (Manual) Eosinophils # (Manual) Basophils # (Manual) PT INR APTT D-Dimer Heparin Anti-Xa Level ABG pH ABG pO2 ABG HCO3 ABG O2 Saturation ABG Base Excess ABG Hemoglobin Oxyhemoglobin Sodium Potassium Chloride Carbon Dioxide BUN Creatinine Glucose POC Glucose 173 H 148 H 137 H Hemoglobin A1c Lactic Acid Calcium Phosphorus Magnesium Ferritin AST ALT Alkaline Phosphatase Lactate Dehydrogenase Troponin T C-Reactive Protein Total Protein Albumin LDL Cholesterol Direct Urine Creatinine Urine Total Protein Salicylates Acetaminophen Crossmatch 11/03/21 11/03/21 11/03/21 04:59 06:00 06:00 WBC RBC 3.43 L Hgb 9.1 L Hct 29.0 L MCH 26 L RDW 16.4 H Plt Count Lymph % (Auto) [place] % (Auto) Lymph # (Auto) [place] # (Auto) Seg Neutrophils % Seg Neuts % (Manual) Lymphocytes % (Manual) Monocytes % (Manual) Basophils % (Manual) Nucleated RBC % Seg Neutrophils # Seg Neutrophils # Man Lymphocytes # (Manual) Monocytes # (Manual) Eosinophils # (Manual) Basophils # (Manual) PT INR APTT D-Dimer Heparin Anti-Xa Level 0.17 L ABG pH ABG pO2 ABG HCO3 ABG O2 Saturation ABG Base Excess ABG Hemoglobin Oxyhemoglobin Sodium Potassium Chloride Carbon Dioxide BUN Creatinine Glucose POC Glucose 167 H Hemoglobin A1c Lactic Acid Calcium Phosphorus Magnesium Ferritin AST ALT Alkaline Phosphatase Lactate Dehydrogenase Troponin T C-Reactive Protein Total Protein Albumin LDL Cholesterol Direct Urine Creatinine Urine Total Protein Salicylates Acetaminophen Crossmatch 11/03/21 11/03/21 11/03/21 06:00 09:20 11:58 WBC RBC Hgb Hct MCH RDW Plt Count Lymph % (Auto) [place] % (Auto) Lymph # (Auto) [place] # (Auto) Seg Neutrophils % Seg Neuts % (Manual) Lymphocytes % (Manual) Monocytes % (Manual) Basophils % (Manual) Nucleated RBC % Seg Neutrophils # Seg Neutrophils # Man Lymphocytes # (Manual) Monocytes # (Manual) Eosinophils # (Manual) Basophils # (Manual) PT INR APTT D-Dimer Heparin Anti-Xa Level ABG pH 7.274 L ABG pO2 75.6 L ABG HCO3 ABG O2 Saturation 94.9 L ABG Base Excess -2.5 L ABG Hemoglobin 9.3 L Oxyhemoglobin 92.9 L Sodium 149 H Potassium Chloride 117.5 H Carbon Dioxide BUN 32 H Creatinine Glucose 173 H POC Glucose 192 H Hemoglobin A1c Lactic Acid Calcium 8.1 L Phosphorus Magnesium Ferritin AST ALT Alkaline Phosphatase Lactate Dehydrogenase Troponin T C-Reactive Protein Total Protein Albumin LDL Cholesterol Direct Urine Creatinine Urine Total Protein Salicylates Acetaminophen Crossmatch 11/03/21 11/03/21 11/04/21 18:22 Unknown 00:09 WBC RBC Hgb Hct MCH RDW Plt Count Lymph % (Auto) [place] % (Auto) Lymph # (Auto) [place] # (Auto) Seg Neutrophils % Seg Neuts % (Manual) Lymphocytes % (Manual) Monocytes % (Manual) Basophils % (Manual) Nucleated RBC % Seg Neutrophils # Seg Neutrophils # Man Lymphocytes # (Manual) Monocytes # (Manual) Eosinophils # (Manual) Basophils # (Manual) PT INR APTT D-Dimer Heparin Anti-Xa Level 0.29 L ABG pH ABG pO2 ABG HCO3 ABG O2 Saturation ABG Base Excess ABG Hemoglobin Oxyhemoglobin Sodium Potassium Chloride Carbon Dioxide BUN Creatinine Glucose POC Glucose 178 H 221 H Hemoglobin A1c Lactic Acid Calcium Phosphorus Magnesium Ferritin AST ALT Alkaline Phosphatase Lactate Dehydrogenase Troponin T C-Reactive Protein Total Protein Albumin LDL Cholesterol Direct Urine Creatinine Urine Total Protein Salicylates Acetaminophen Crossmatch 11/04/21 11/04/21 11/04/21 05:09 09:40 09:40 WBC 16.8 H RBC Hgb Hct MCH 27 L RDW 16.5 H Plt Count Lymph % (Auto) [place] % (Auto) Lymph # (Auto) [place] # (Auto) Seg Neutrophils % Seg Neuts % (Manual) Lymphocytes % (Manual) Monocytes % (Manual) Basophils % (Manual) Nucleated RBC % Seg Neutrophils # Seg Neutrophils # Man Lymphocytes # (Manual) Monocytes # (Manual) Eosinophils # (Manual) Basophils # (Manual) PT INR APTT D-Dimer Heparin Anti-Xa Level ABG pH ABG pO2 ABG HCO3 ABG O2 Saturation ABG Base Excess ABG Hemoglobin Oxyhemoglobin Sodium Potassium 5.9 H Chloride 108.5 H Carbon Dioxide BUN 54 H Creatinine 1.8 H Glucose 198 H POC Glucose 182 H Hemoglobin A1c Lactic Acid Calcium Phosphorus Magnesium 3.00 H Ferritin AST ALT Alkaline Phosphatase Lactate Dehydrogenase Troponin T C-Reactive Protein Total Protein Albumin LDL Cholesterol Direct Urine Creatinine Urine Total Protein Salicylates Acetaminophen Crossmatch 11/04/21 11/04/21 11/04/21 12:13 13:34 14:05 WBC RBC Hgb Hct MCH RDW Plt Count Lymph % (Auto) [place] % (Auto) Lymph # (Auto) [place] # (Auto) Seg Neutrophils % Seg Neuts % (Manual) Lymphocytes % (Manual) Monocytes % (Manual) Basophils % (Manual) Nucleated RBC % Seg Neutrophils # Seg Neutrophils # Man Lymphocytes # (Manual) Monocytes # (Manual) Eosinophils # (Manual) Basophils # (Manual) PT INR APTT D-Dimer Heparin Anti-Xa Level ABG pH 7.223 L ABG pO2 71.3 L ABG HCO3 ABG O2 Saturation 92.8 L ABG Base Excess ABG Hemoglobin 8.2 L Oxyhemoglobin 91.0 L Sodium Potassium Chloride Carbon Dioxide BUN Creatinine Glucose POC Glucose 184 H Hemoglobin A1c Lactic Acid Calcium Phosphorus Magnesium Ferritin AST ALT Alkaline Phosphatase Lactate Dehydrogenase Troponin T C-Reactive Protein Total Protein Albumin LDL Cholesterol Direct Urine Creatinine 184.6 H Urine Total Protein Salicylates Acetaminophen Crossmatch 11/04/21 11/04/21 11/05/21 18:02 Unknown 00:07 WBC RBC Hgb Hct MCH RDW Plt Count Lymph % (Auto) [place] % (Auto) Lymph # (Auto) [place] # (Auto) Seg Neutrophils % Seg Neuts % (Manual) Lymphocytes % (Manual) Monocytes % (Manual) Basophils % (Manual) Nucleated RBC % Seg Neutrophils # Seg Neutrophils # Man Lymphocytes # (Manual) Monocytes # (Manual) Eosinophils # (Manual) Basophils # (Manual) PT INR APTT D-Dimer Heparin Anti-Xa Level ABG pH ABG pO2 ABG HCO3 ABG O2 Saturation ABG Base Excess ABG Hemoglobin Oxyhemoglobin Sodium Potassium Chloride Carbon Dioxide BUN Creatinine Glucose POC Glucose 262 H 259 H Hemoglobin A1c Lactic Acid Calcium Phosphorus Magnesium Ferritin AST ALT Alkaline Phosphatase Lactate Dehydrogenase Troponin T C-Reactive Protein Total Protein Albumin LDL Cholesterol Direct Urine Creatinine 190.9 H Urine Total Protein 172 H Salicylates Acetaminophen Crossmatch 11/05/21 11/05/21 11/05/21 04:20 04:20 05:30 WBC 17.9 H RBC 3.64 L Hgb 9.7 L Hct MCH 27 L RDW 16.4 H Plt Count Lymph % (Auto) [place] % (Auto) Lymph # (Auto) [place] # (Auto) Seg Neutrophils % Seg Neuts % (Manual) Lymphocytes % (Manual) Monocytes % (Manual) Basophils % (Manual) Nucleated RBC % Seg Neutrophils # Seg Neutrophils # Man Lymphocytes # (Manual) Monocytes # (Manual) Eosinophils # (Manual) Basophils # (Manual) PT INR APTT D-Dimer Heparin Anti-Xa Level ABG pH ABG pO2 ABG HCO3 ABG O2 Saturation ABG Base Excess ABG Hemoglobin Oxyhemoglobin Sodium Potassium 5.6 H Chloride 108.4 H Carbon Dioxide BUN 71 H Creatinine 1.9 H Glucose 270 H POC Glucose 283 H Hemoglobin A1c Lactic Acid Calcium Phosphorus Magnesium Ferritin AST ALT Alkaline Phosphatase Lactate Dehydrogenase Troponin T C-Reactive Protein Total Protein Albumin LDL Cholesterol Direct Urine Creatinine Urine Total Protein Salicylates Acetaminophen Crossmatch 11/05/21 11/05/21 11/05/21 10:05 12:10 15:29 WBC RBC Hgb Hct MCH RDW Plt Count Lymph % (Auto) [place] % (Auto) Lymph # (Auto) [place] # (Auto) Seg Neutrophils % Seg Neuts % (Manual) Lymphocytes % (Manual) Monocytes % (Manual) Basophils % (Manual) Nucleated RBC % Seg Neutrophils # Seg Neutrophils # Man Lymphocytes # (Manual) Monocytes # (Manual) Eosinophils # (Manual) Basophils # (Manual) PT INR APTT D-Dimer Heparin Anti-Xa Level ABG pH 7.248 L ABG pO2 73.7 L ABG HCO3 26.2 H ABG O2 Saturation 93.1 L ABG Base Excess ABG Hemoglobin 8.9 L Oxyhemoglobin 91.4 L Sodium Potassium Chloride Carbon Dioxide BUN Creatinine Glucose POC Glucose 225 H 199 H Hemoglobin A1c Lactic Acid Calcium Phosphorus Magnesium Ferritin AST ALT Alkaline Phosphatase Lactate Dehydrogenase Troponin T C-Reactive Protein Total Protein Albumin LDL Cholesterol Direct Urine Creatinine Urine Total Protein Salicylates Acetaminophen Crossmatch 11/05/21 11/05/21 11/05/21 15:51 17:32 17:40 WBC RBC Hgb Hct MCH RDW Plt Count Lymph % (Auto) [place] % (Auto) Lymph # (Auto) [place] # (Auto) Seg Neutrophils % Seg Neuts % (Manual) Lymphocytes % (Manual) Monocytes % (Manual) Basophils % (Manual) Nucleated RBC % Seg Neutrophils # Seg Neutrophils # Man Lymphocytes # (Manual) Monocytes # (Manual) Eosinophils # (Manual) Basophils # (Manual) PT INR APTT D-Dimer Heparin Anti-Xa Level ABG pH ABG pO2 ABG HCO3 ABG O2 Saturation ABG Base Excess ABG Hemoglobin Oxyhemoglobin Sodium Potassium 5.2 H Chloride 107.8 H Carbon Dioxide BUN 79 H Creatinine 1.9 H Glucose 204 H POC Glucose 278 H 197 H Hemoglobin A1c Lactic Acid Calcium Phosphorus Magnesium Ferritin AST ALT Alkaline Phosphatase Lactate Dehydrogenase Troponin T C-Reactive Protein Total Protein Albumin LDL Cholesterol Direct Urine Creatinine Urine Total Protein Salicylates Acetaminophen Crossmatch 11/05/21 11/05/21 11/05/21 21:25 22:22 23:43 WBC RBC Hgb Hct MCH RDW Plt Count Lymph % (Auto) [place] % (Auto) Lymph # (Auto) [place] # (Auto) Seg Neutrophils % Seg Neuts % (Manual) Lymphocytes % (Manual) Monocytes % (Manual) Basophils % (Manual) Nucleated RBC % Seg Neutrophils # Seg Neutrophils # Man Lymphocytes # (Manual) Monocytes # (Manual) Eosinophils # (Manual) Basophils # (Manual) PT INR APTT D-Dimer Heparin Anti-Xa Level ABG pH ABG pO2 ABG HCO3 ABG O2 Saturation ABG Base Excess ABG Hemoglobin Oxyhemoglobin Sodium Potassium 5.3 H Chloride 109.2 H Carbon Dioxide BUN 81 H Creatinine 2.0 H Glucose 195 H POC Glucose 180 H 203 H Hemoglobin A1c Lactic Acid Calcium Phosphorus Magnesium Ferritin AST ALT Alkaline Phosphatase Lactate Dehydrogenase Troponin T C-Reactive Protein Total Protein Albumin LDL Cholesterol Direct Urine Creatinine Urine Total Protein Salicylates Acetaminophen Crossmatch 11/05/21 11/06/21 11/06/21 Unknown 02:35 05:09 WBC RBC Hgb Hct MCH RDW Plt Count Lymph % (Auto) [place] % (Auto) Lymph # (Auto) [place] # (Auto) Seg Neutrophils % Seg Neuts % (Manual) Lymphocytes % (Manual) Monocytes % (Manual) Basophils % (Manual) Nucleated RBC % Seg Neutrophils # Seg Neutrophils # Man Lymphocytes # (Manual) Monocytes # (Manual) Eosinophils # (Manual) Basophils # (Manual) PT INR APTT D-Dimer Heparin Anti-Xa Level ABG pH ABG pO2 ABG HCO3 ABG O2 Saturation ABG Base Excess ABG Hemoglobin Oxyhemoglobin Sodium 146 H Potassium 6.0 H Chloride 108.1 H 107.1 H Carbon Dioxide 21 L BUN 80 H 84 H Creatinine 2.0 H 2.0 H Glucose 238 H 235 H POC Glucose 215 H Hemoglobin A1c Lactic Acid Calcium Phosphorus Magnesium 2.80 H Ferritin AST ALT 77 H Alkaline Phosphatase Lactate Dehydrogenase Troponin T C-Reactive Protein Total Protein Albumin 3.0 L LDL Cholesterol Direct Urine Creatinine Urine Total Protein Salicylates Acetaminophen Crossmatch 11/06/21 11/06/21 11/06/21 05:40 08:07 08:07 WBC RBC Hgb Hct MCH RDW Plt Count Lymph % (Auto) [place] % (Auto) Lymph # (Auto) [place] # (Auto) Seg Neutrophils % Seg Neuts % (Manual) Lymphocytes % (Manual) Monocytes % (Manual) Basophils % (Manual) Nucleated RBC % Seg Neutrophils # Seg Neutrophils # Man Lymphocytes # (Manual) Monocytes # (Manual) Eosinophils # (Manual) Basophils # (Manual) PT INR APTT D-Dimer Heparin Anti-Xa Level 1.24 H ABG pH 7.311 L ABG pO2 72.8 L ABG HCO3 29.7 H ABG O2 Saturation 94.1 L ABG Base Excess ABG Hemoglobin 11.4 L Oxyhemoglobin 92.3 L Sodium Potassium 5.2 H Chloride Carbon Dioxide BUN 85 H Creatinine 2.3 H Glucose 236 H POC Glucose Hemoglobin A1c Lactic Acid Calcium Phosphorus Magnesium Ferritin AST ALT Alkaline Phosphatase Lactate Dehydrogenase Troponin T C-Reactive Protein Total Protein Albumin LDL Cholesterol Direct Urine Creatinine Urine Total Protein Salicylates Acetaminophen Crossmatch 11/06/21 11/06/21 11/06/21 12:14 12:57 14:28 WBC RBC Hgb Hct MCH RDW Plt Count Lymph % (Auto) [place] % (Auto) Lymph # (Auto) [place] # (Auto) Seg Neutrophils % Seg Neuts % (Manual) Lymphocytes % (Manual) Monocytes % (Manual) Basophils % (Manual) Nucleated RBC % Seg Neutrophils # Seg Neutrophils # Man Lymphocytes # (Manual) Monocytes # (Manual) Eosinophils # (Manual) Basophils # (Manual) PT INR APTT D-Dimer Heparin Anti-Xa Level ABG pH 7.282 L ABG pO2 72.6 L ABG HCO3 30.8 H ABG O2 Saturation 93.7 L ABG Base Excess 3.2 H ABG Hemoglobin 8.6 L Oxyhemoglobin 91.8 L Sodium Potassium Chloride Carbon Dioxide BUN 91 H Creatinine 2.6 H Glucose 259 H POC Glucose 225 H Hemoglobin A1c Lactic Acid Calcium Phosphorus Magnesium Ferritin AST ALT Alkaline Phosphatase Lactate Dehydrogenase Troponin T C-Reactive Protein Total Protein Albumin LDL Cholesterol Direct Urine Creatinine Urine Total Protein Salicylates Acetaminophen Crossmatch 11/06/21 11/06/21 11/06/21 17:28 19:20 21:30 WBC RBC Hgb Hct MCH RDW Plt Count Lymph % (Auto) [place] % (Auto) Lymph # (Auto) [place] # (Auto) Seg Neutrophils % Seg Neuts % (Manual) Lymphocytes % (Manual) Monocytes % (Manual) Basophils % (Manual) Nucleated RBC % Seg Neutrophils # Seg Neutrophils # Man Lymphocytes # (Manual) Monocytes # (Manual) Eosinophils # (Manual) Basophils # (Manual) PT INR APTT D-Dimer Heparin Anti-Xa Level 0.73 H ABG pH ABG pO2 ABG HCO3 ABG O2 Saturation ABG Base Excess ABG Hemoglobin Oxyhemoglobin Sodium Potassium Chloride Carbon Dioxide BUN 95 H Creatinine 2.9 H Glucose 233 H POC Glucose 206 H Hemoglobin A1c Lactic Acid Calcium Phosphorus Magnesium Ferritin AST ALT Alkaline Phosphatase Lactate Dehydrogenase Troponin T C-Reactive Protein Total Protein Albumin LDL Cholesterol Direct Urine Creatinine Urine Total Protein Salicylates Acetaminophen Crossmatch 11/06/21 11/07/21 11/07/21 22:56 05:06 06:30 WBC RBC Hgb Hct MCH RDW Plt Count Lymph % (Auto) [place] % (Auto) Lymph # (Auto) [place] # (Auto) Seg Neutrophils % Seg Neuts % (Manual) Lymphocytes % (Manual) Monocytes % (Manual) Basophils % (Manual) Nucleated RBC % Seg Neutrophils # Seg Neutrophils # Man Lymphocytes # (Manual) Monocytes # (Manual) Eosinophils # (Manual) Basophils # (Manual) PT INR APTT D-Dimer Heparin Anti-Xa Level ABG pH ABG pO2 ABG HCO3 ABG O2 Saturation ABG Base Excess ABG Hemoglobin Oxyhemoglobin Sodium 146 H Potassium Chloride Carbon Dioxide BUN 98 H Creatinine 2.8 H Glucose 202 H POC Glucose 215 H 172 H Hemoglobin A1c Lactic Acid Calcium Phosphorus 4.90 H D Magnesium 2.90 H Ferritin AST ALT Alkaline Phosphatase Lactate Dehydrogenase Troponin T C-Reactive Protein Total Protein Albumin LDL Cholesterol Direct Urine Creatinine Urine Total Protein Salicylates Acetaminophen Crossmatch 11/07/21 11/07/21 11/07/21 06:30 11:26 12:15 WBC 16.0 H RBC 3.06 L Hgb 8.2 L Hct 26.1 L MCH 27 L RDW 16.2 H Plt Count Lymph % (Auto) [place] % (Auto) Lymph # (Auto) [place] # (Auto) Seg Neutrophils % Seg Neuts % (Manual) 77.0 H Lymphocytes % (Manual) 11.0 L Monocytes % (Manual) Basophils % (Manual) Nucleated RBC % 2.0 H Seg Neutrophils # Seg Neutrophils # Man 12.3 H Lymphocytes # (Manual) Monocytes # (Manual) Eosinophils # (Manual) Basophils # (Manual) PT INR APTT D-Dimer Heparin Anti-Xa Level ABG pH 7.298 L ABG pO2 73.0 L ABG HCO3 33.3 H ABG O2 Saturation 94.4 L ABG Base Excess 5.8 H ABG Hemoglobin 8.2 L Oxyhemoglobin 92.7 L Sodium Potassium Chloride Carbon Dioxide BUN Creatinine Glucose POC Glucose 179 H Hemoglobin A1c Lactic Acid Calcium Phosphorus Magnesium Ferritin AST ALT Alkaline Phosphatase Lactate Dehydrogenase Troponin T C-Reactive Protein Total Protein Albumin LDL Cholesterol Direct Urine Creatinine Urine Total Protein Salicylates Acetaminophen Crossmatch 11/07/21 11/07/21 11/07/21 17:57 22:16 23:49 WBC RBC Hgb Hct MCH RDW Plt Count Lymph % (Auto) [place] % (Auto) Lymph # (Auto) [place] # (Auto) Seg Neutrophils % Seg Neuts % (Manual) Lymphocytes % (Manual) Monocytes % (Manual) Basophils % (Manual) Nucleated RBC % Seg Neutrophils # Seg Neutrophils # Man Lymphocytes # (Manual) Monocytes # (Manual) Eosinophils # (Manual) Basophils # (Manual) PT INR APTT D-Dimer Heparin Anti-Xa Level ABG pH ABG pO2 ABG HCO3 ABG O2 Saturation ABG Base Excess ABG Hemoglobin Oxyhemoglobin Sodium Potassium Chloride Carbon Dioxide BUN Creatinine Glucose POC Glucose 166 H 223 H 190 H Hemoglobin A1c Lactic Acid Calcium Phosphorus Magnesium Ferritin AST ALT Alkaline Phosphatase Lactate Dehydrogenase Troponin T C-Reactive Protein Total Protein Albumin LDL Cholesterol Direct Urine Creatinine Urine Total Protein Salicylates Acetaminophen Crossmatch 02/15/22 02/15/22 02/15/22 04:20 04:20 06:16 WBC 22.1 H RBC 3.01 L Hgb 8.1 L Hct 25.6 L MCH 27 L RDW 15.4 H Plt Count Lymph % (Auto) [place] % (Auto) Lymph # (Auto) [place] # (Auto) Seg Neutrophils % Seg Neuts % (Manual) Lymphocytes % (Manual) Monocytes % (Manual) Basophils % (Manual) Nucleated RBC % Seg Neutrophils # Seg Neutrophils # Man Lymphocytes # (Manual) Monocytes # (Manual) Eosinophils # (Manual) Basophils # (Manual) PT INR APTT D-Dimer Heparin Anti-Xa Level ABG pH ABG pO2 ABG HCO3 ABG O2 Saturation ABG Base Excess ABG Hemoglobin Oxyhemoglobin Sodium 151 H Potassium 3.1 L D Chloride 107.3 H Carbon Dioxide 31 H BUN 82 H Creatinine 1.8 H Glucose 232 H POC Glucose 198 H Hemoglobin A1c Lactic Acid Calcium 8.1 L Phosphorus Magnesium Ferritin AST ALT Alkaline Phosphatase Lactate Dehydrogenase Troponin T C-Reactive Protein Total Protein Albumin LDL Cholesterol Direct Urine Creatinine Urine Total Protein Salicylates Acetaminophen Crossmatch 11/08/21 11/08/21 11/08/21 11:38 12:00 18:29 WBC RBC Hgb Hct MCH RDW Plt Count Lymph % (Auto) [place] % (Auto) Lymph # (Auto) [place] # (Auto) Seg Neutrophils % Seg Neuts % (Manual) Lymphocytes % (Manual) Monocytes % (Manual) Basophils % (Manual) Nucleated RBC % Seg Neutrophils # Seg Neutrophils # Man Lymphocytes # (Manual) Monocytes # (Manual) Eosinophils # (Manual) Basophils # (Manual) PT INR APTT D-Dimer Heparin Anti-Xa Level ABG pH ABG pO2 ABG HCO3 ABG O2 Saturation ABG Base Excess ABG Hemoglobin Oxyhemoglobin Sodium Potassium 3.0 L Chloride Carbon Dioxide BUN Creatinine Glucose POC Glucose 190 H 211 H Hemoglobin A1c Lactic Acid Calcium Phosphorus Magnesium Ferritin AST ALT Alkaline Phosphatase Lactate Dehydrogenase Troponin T C-Reactive Protein Total Protein Albumin LDL Cholesterol Direct Urine Creatinine Urine Total Protein Salicylates Acetaminophen Crossmatch 11/08/21 11/08/21 11/09/21 21:34 21:40 00:36 WBC RBC Hgb Hct MCH RDW Plt Count Lymph % (Auto) [place] % (Auto) Lymph # (Auto) [place] # (Auto) Seg Neutrophils % Seg Neuts % (Manual) Lymphocytes % (Manual) Monocytes % (Manual) Basophils % (Manual) Nucleated RBC % Seg Neutrophils # Seg Neutrophils # Man Lymphocytes # (Manual) Monocytes # (Manual) Eosinophils # (Manual) Basophils # (Manual) PT INR APTT D-Dimer Heparin Anti-Xa Level ABG pH ABG pO2 ABG HCO3 ABG O2 Saturation ABG Base Excess ABG Hemoglobin Oxyhemoglobin Sodium 148 H Potassium 2.8 L* Chloride Carbon Dioxide 31 H BUN 68 H Creatinine 1.5 H Glucose 191 H POC Glucose 194 H 140 H Hemoglobin A1c Lactic Acid Calcium 8.2 L Phosphorus Magnesium Ferritin AST ALT Alkaline Phosphatase Lactate Dehydrogenase Troponin T C-Reactive Protein Total Protein Albumin LDL Cholesterol Direct Urine Creatinine Urine Total Protein Salicylates Acetaminophen Crossmatch 11/09/21 11/09/21 11/09/21 04:51 04:51 04:51 WBC 27.6 H RBC 3.18 L Hgb 8.4 L Hct 26.6 L MCH 27 L RDW 15.3 H Plt Count Lymph % (Auto) [place] % (Auto) Lymph # (Auto) [place] # (Auto) Seg Neutrophils % Seg Neuts % (Manual) Lymphocytes % (Manual) Monocytes % (Manual) Basophils % (Manual) Nucleated RBC % Seg Neutrophils # Seg Neutrophils # Man Lymphocytes # (Manual) Monocytes # (Manual) Eosinophils # (Manual) Basophils # (Manual) PT INR APTT D-Dimer Heparin Anti-Xa Level 0.18 L ABG pH ABG pO2 ABG HCO3 ABG O2 Saturation ABG Base Excess ABG Hemoglobin Oxyhemoglobin Sodium 148 H Potassium 2.7 L* Chloride Carbon Dioxide BUN 59 H Creatinine 1.4 H Glucose 143 H POC Glucose Hemoglobin A1c Lactic Acid Calcium 8.3 L Phosphorus Magnesium Ferritin AST ALT Alkaline Phosphatase Lactate Dehydrogenase Troponin T C-Reactive Protein Total Protein Albumin LDL Cholesterol Direct Urine Creatinine Urine Total Protein Salicylates Acetaminophen Crossmatch 11/09/21 11/09/21 11/09/21 05:52 08:45 11:00 WBC RBC Hgb Hct MCH RDW Plt Count Lymph % (Auto) [place] % (Auto) Lymph # (Auto) [place] # (Auto) Seg Neutrophils % Seg Neuts % (Manual) Lymphocytes % (Manual) Monocytes % (Manual) Basophils % (Manual) Nucleated RBC % Seg Neutrophils # Seg Neutrophils # Man Lymphocytes # (Manual) Monocytes # (Manual) Eosinophils # (Manual) Basophils # (Manual) PT INR APTT D-Dimer Heparin Anti-Xa Level ABG pH ABG pO2 73.2 L ABG HCO3 33.8 H ABG O2 Saturation ABG Base Excess 8.7 H ABG Hemoglobin 8.5 L Oxyhemoglobin 94.1 L Sodium Potassium Chloride Carbon Dioxide BUN Creatinine Glucose POC Glucose 166 H 136 H Hemoglobin A1c Lactic Acid Calcium Phosphorus Magnesium Ferritin AST ALT Alkaline Phosphatase Lactate Dehydrogenase Troponin T C-Reactive Protein Total Protein Albumin LDL Cholesterol Direct Urine Creatinine Urine Total Protein Salicylates Acetaminophen Crossmatch 11/09/21 11/09/21 11/09/21 15:48 16:10 20:31 WBC RBC Hgb Hct MCH RDW Plt Count Lymph % (Auto) [place] % (Auto) Lymph # (Auto) [place] # (Auto) Seg Neutrophils % Seg Neuts % (Manual) Lymphocytes % (Manual) Monocytes % (Manual) Basophils % (Manual) Nucleated RBC % Seg Neutrophils # Seg Neutrophils # Man Lymphocytes # (Manual) Monocytes # (Manual) Eosinophils # (Manual) Basophils # (Manual) PT INR APTT D-Dimer Heparin Anti-Xa Level ABG pH ABG pO2 ABG HCO3 ABG O2 Saturation ABG Base Excess ABG Hemoglobin Oxyhemoglobin Sodium Potassium 2.8 L* Chloride Carbon Dioxide 31 H BUN 53 H Creatinine 1.3 H Glucose 208 H POC Glucose 203 H 166 H Hemoglobin A1c Lactic Acid Calcium 7.9 L Phosphorus Magnesium Ferritin AST ALT Alkaline Phosphatase Lactate Dehydrogenase Troponin T C-Reactive Protein Total Protein Albumin LDL Cholesterol Direct Urine Creatinine Urine Total Protein Salicylates Acetaminophen Crossmatch 11/09/21 11/09/21 11/09/21 21:30 23:16 Unknown WBC RBC Hgb Hct MCH RDW Plt Count Lymph % (Auto) [place] % (Auto) Lymph # (Auto) [place] # (Auto) Seg Neutrophils % Seg Neuts % (Manual) Lymphocytes % (Manual) Monocytes % (Manual) Basophils % (Manual) Nucleated RBC % Seg Neutrophils # Seg Neutrophils # Man Lymphocytes # (Manual) Monocytes # (Manual) Eosinophils # (Manual) Basophils # (Manual) PT INR APTT D-Dimer Heparin Anti-Xa Level 0.24 L ABG pH ABG pO2 ABG HCO3 ABG O2 Saturation ABG Base Excess ABG Hemoglobin Oxyhemoglobin Sodium Potassium Chloride Carbon Dioxide BUN 52 H Creatinine 1.4 H Glucose 185 H POC Glucose 172 H Hemoglobin A1c Lactic Acid Calcium 7.8 L Phosphorus Magnesium Ferritin AST ALT Alkaline Phosphatase Lactate Dehydrogenase Troponin T C-Reactive Protein Total Protein Albumin LDL Cholesterol Direct Urine Creatinine Urine Total Protein Salicylates Acetaminophen Crossmatch 11/10/21 11/10/21 11/10/21 02:00 04:17 04:17 WBC 24.5 H RBC 2.75 L Hgb 7.5 L Hct 22.9 L MCH 27 L RDW Plt Count Lymph % (Auto) [place] % (Auto) Lymph # (Auto) [place] # (Auto) Seg Neutrophils % Seg Neuts % (Manual) Lymphocytes % (Manual) Monocytes % (Manual) Basophils % (Manual) Nucleated RBC % Seg Neutrophils # Seg Neutrophils # Man Lymphocytes # (Manual) Monocytes # (Manual) Eosinophils # (Manual) Basophils # (Manual) PT INR APTT D-Dimer Heparin Anti-Xa Level 0.26 L ABG pH ABG pO2 ABG HCO3 ABG O2 Saturation ABG Base Excess ABG Hemoglobin Oxyhemoglobin Sodium Potassium 2.9 L* Chloride Carbon Dioxide 35 H BUN 48 H Creatinine Glucose 212 H POC Glucose Hemoglobin A1c Lactic Acid Calcium 8.1 L Phosphorus Magnesium Ferritin AST ALT Alkaline Phosphatase Lactate Dehydrogenase Troponin T C-Reactive Protein Total Protein Albumin LDL Cholesterol Direct Urine Creatinine Urine Total Protein Salicylates Acetaminophen Crossmatch 11/10/21 11/10/21 11/10/21 05:01 08:39 11:03 WBC RBC Hgb Hct MCH RDW Plt Count Lymph % (Auto) [place] % (Auto) Lymph # (Auto) [place] # (Auto) Seg Neutrophils % Seg Neuts % (Manual) Lymphocytes % (Manual) Monocytes % (Manual) Basophils % (Manual) Nucleated RBC % Seg Neutrophils # Seg Neutrophils # Man Lymphocytes # (Manual) Monocytes # (Manual) Eosinophils # (Manual) Basophils # (Manual) PT INR APTT D-Dimer Heparin Anti-Xa Level 0.12 L ABG pH ABG pO2 ABG HCO3 ABG O2 Saturation ABG Base Excess ABG Hemoglobin Oxyhemoglobin Sodium Potassium Chloride Carbon Dioxide BUN Creatinine Glucose POC Glucose 203 H 152 H Hemoglobin A1c Lactic Acid Calcium Phosphorus Magnesium Ferritin AST ALT Alkaline Phosphatase Lactate Dehydrogenase Troponin T C-Reactive Protein Total Protein Albumin LDL Cholesterol Direct Urine Creatinine Urine Total Protein Salicylates Acetaminophen Crossmatch 11/10/21 11/10/21 11/10/21 12:45 15:43 21:05 WBC RBC Hgb Hct MCH RDW Plt Count Lymph % (Auto) [place] % (Auto) Lymph # (Auto) [place] # (Auto) Seg Neutrophils % Seg Neuts % (Manual) Lymphocytes % (Manual) Monocytes % (Manual) Basophils % (Manual) Nucleated RBC % Seg Neutrophils # Seg Neutrophils # Man Lymphocytes # (Manual) Monocytes # (Manual) Eosinophils # (Manual) Basophils # (Manual) PT INR APTT D-Dimer Heparin Anti-Xa Level ABG pH ABG pO2 ABG HCO3 ABG O2 Saturation ABG Base Excess ABG Hemoglobin Oxyhemoglobin Sodium 146 H Potassium 3.3 L Chloride Carbon Dioxide 31 H BUN 43 H Creatinine Glucose 155 H POC Glucose 139 H 139 H Hemoglobin A1c Lactic Acid Calcium 8.3 L Phosphorus Magnesium Ferritin AST ALT Alkaline Phosphatase Lactate Dehydrogenase Troponin T C-Reactive Protein Total Protein Albumin LDL Cholesterol Direct Urine Creatinine Urine Total Protein Salicylates Acetaminophen Crossmatch 11/10/21 11/11/21 11/11/21 23:25 03:49 03:49 WBC 22.1 H RBC 2.69 L Hgb 7.2 L Hct 22.7 L MCH 27 L RDW Plt Count Lymph % (Auto) [place] % (Auto) Lymph # (Auto) [place] # (Auto) Seg Neutrophils % Seg Neuts % (Manual) Lymphocytes % (Manual) Monocytes % (Manual) Basophils % (Manual) Nucleated RBC % Seg Neutrophils # Seg Neutrophils # Man Lymphocytes # (Manual) Monocytes # (Manual) Eosinophils # (Manual) Basophils # (Manual) PT INR APTT D-Dimer Heparin Anti-Xa Level ABG pH ABG pO2 ABG HCO3 ABG O2 Saturation ABG Base Excess ABG Hemoglobin Oxyhemoglobin Sodium Potassium Chloride Carbon Dioxide 32 H BUN 44 H Creatinine 1.3 H Glucose 173 H POC Glucose 146 H Hemoglobin A1c Lactic Acid Calcium Phosphorus Magnesium Ferritin AST ALT Alkaline Phosphatase Lactate Dehydrogenase Troponin T C-Reactive Protein Total Protein Albumin LDL Cholesterol Direct Urine Creatinine Urine Total Protein Salicylates Acetaminophen Crossmatch 11/11/21 11/11/21 11/11/21 05:03 10:50 11:32 WBC RBC Hgb Hct MCH RDW Plt Count Lymph % (Auto) [place] % (Auto) Lymph # (Auto) [place] # (Auto) Seg Neutrophils % Seg Neuts % (Manual) Lymphocytes % (Manual) Monocytes % (Manual) Basophils % (Manual) Nucleated RBC % Seg Neutrophils # Seg Neutrophils # Man Lymphocytes # (Manual) Monocytes # (Manual) Eosinophils # (Manual) Basophils # (Manual) PT INR APTT D-Dimer Heparin Anti-Xa Level ABG pH ABG pO2 ABG HCO3 ABG O2 Saturation ABG Base Excess ABG Hemoglobin Oxyhemoglobin Sodium Potassium Chloride Carbon Dioxide BUN Creatinine Glucose POC Glucose 152 H 129 H 133 H Hemoglobin A1c Lactic Acid Calcium Phosphorus Magnesium Ferritin AST ALT Alkaline Phosphatase Lactate Dehydrogenase Troponin T C-Reactive Protein Total Protein Albumin LDL Cholesterol Direct Urine Creatinine Urine Total Protein Salicylates Acetaminophen Crossmatch 11/11/21 11/11/21 11/11/21 13:53 16:31 17:13 WBC RBC Hgb Hct MCH RDW Plt Count Lymph % (Auto) [place] % (Auto) Lymph # (Auto) [place] # (Auto) Seg Neutrophils % Seg Neuts % (Manual) Lymphocytes % (Manual) Monocytes % (Manual) Basophils % (Manual) Nucleated RBC % Seg Neutrophils # Seg Neutrophils # Man Lymphocytes # (Manual) Monocytes # (Manual) Eosinophils # (Manual) Basophils # (Manual) PT INR APTT D-Dimer Heparin Anti-Xa Level ABG pH 7.475 H ABG pO2 64.1 L ABG HCO3 32.4 H ABG O2 Saturation ABG Base Excess 8.0 H ABG Hemoglobin 7.6 L Oxyhemoglobin 94.0 L Sodium Potassium Chloride Carbon Dioxide BUN Creatinine Glucose POC Glucose 116 H 125 H Hemoglobin A1c Lactic Acid Calcium Phosphorus Magnesium Ferritin AST ALT Alkaline Phosphatase Lactate Dehydrogenase Troponin T C-Reactive Protein Total Protein Albumin LDL Cholesterol Direct Urine Creatinine Urine Total Protein Salicylates Acetaminophen Crossmatch 11/11/21 11/11/21 11/12/21 20:40 23:35 03:30 WBC 17.7 H RBC 2.37 L Hgb 6.3 L Hct 20.0 L MCH 27 L RDW 15.5 H Plt Count Lymph % (Auto) [place] % (Auto) Lymph # (Auto) [place] # (Auto) Seg Neutrophils % Seg Neuts % (Manual) Lymphocytes % (Manual) Monocytes % (Manual) Basophils % (Manual) Nucleated RBC % Seg Neutrophils # Seg Neutrophils # Man Lymphocytes # (Manual) Monocytes # (Manual) Eosinophils # (Manual) Basophils # (Manual) PT INR APTT D-Dimer Heparin Anti-Xa Level 0.26 L ABG pH ABG pO2 ABG HCO3 ABG O2 Saturation ABG Base Excess ABG Hemoglobin Oxyhemoglobin Sodium Potassium Chloride Carbon Dioxide BUN Creatinine Glucose POC Glucose 118 H Hemoglobin A1c Lactic Acid Calcium Phosphorus Magnesium Ferritin AST ALT Alkaline Phosphatase Lactate Dehydrogenase Troponin T C-Reactive Protein Total Protein Albumin LDL Cholesterol Direct Urine Creatinine Urine Total Protein Salicylates Acetaminophen Crossmatch 11/12/21 11/12/21 11/12/21 03:30 04:15 11:53 WBC RBC Hgb Hct MCH RDW Plt Count Lymph % (Auto) [place] % (Auto) Lymph # (Auto) [place] # (Auto) Seg Neutrophils % Seg Neuts % (Manual) Lymphocytes % (Manual) Monocytes % (Manual) Basophils % (Manual) Nucleated RBC % Seg Neutrophils # Seg Neutrophils # Man Lymphocytes # (Manual) Monocytes # (Manual) Eosinophils # (Manual) Basophils # (Manual) PT INR APTT D-Dimer Heparin Anti-Xa Level ABG pH ABG pO2 ABG HCO3 ABG O2 Saturation ABG Base Excess ABG Hemoglobin Oxyhemoglobin Sodium Potassium Chloride Carbon Dioxide 33 H BUN 38 H Creatinine 1.3 H Glucose 102 H POC Glucose 62 L Hemoglobin A1c Lactic Acid Calcium 8.2 L Phosphorus Magnesium Ferritin AST ALT Alkaline Phosphatase Lactate Dehydrogenase Troponin T C-Reactive Protein Total Protein Albumin LDL Cholesterol Direct Urine Creatinine Urine Total Protein Salicylates Acetaminophen Crossmatch See Detail 11/12/21 11/12/21 11/12/21 17:20 19:14 23:11 WBC RBC Hgb 6.2 L Hct 19.5 L* MCH RDW Plt Count Lymph % (Auto) [place] % (Auto) Lymph # (Auto) [place] # (Auto) Seg Neutrophils % Seg Neuts % (Manual) Lymphocytes % (Manual) Monocytes % (Manual) Basophils % (Manual) Nucleated RBC % Seg Neutrophils # Seg Neutrophils # Man Lymphocytes # (Manual) Monocytes # (Manual) Eosinophils # (Manual) Basophils # (Manual) PT INR APTT D-Dimer Heparin Anti-Xa Level ABG pH ABG pO2 ABG HCO3 ABG O2 Saturation ABG Base Excess ABG Hemoglobin Oxyhemoglobin Sodium Potassium Chloride Carbon Dioxide BUN Creatinine Glucose POC Glucose 115 H 131 H Hemoglobin A1c Lactic Acid Calcium Phosphorus Magnesium Ferritin AST ALT Alkaline Phosphatase Lactate Dehydrogenase Troponin T C-Reactive Protein Total Protein Albumin LDL Cholesterol Direct Urine Creatinine Urine Total Protein Salicylates Acetaminophen Crossmatch 11/13/21 11/13/21 11/13/21 00:13 04:17 04:17 WBC 23.8 H RBC 2.84 L Hgb 7.4 L 7.8 L Hct 23.3 L 24.9 L MCH 27 L RDW 15.4 H Plt Count Lymph % (Auto) [place] % (Auto) Lymph # (Auto) [place] # (Auto) Seg Neutrophils % Seg Neuts % (Manual) Lymphocytes % (Manual) Monocytes % (Manual) Basophils % (Manual) Nucleated RBC % Seg Neutrophils # Seg Neutrophils # Man Lymphocytes # (Manual) Monocytes # (Manual) Eosinophils # (Manual) Basophils # (Manual) PT INR APTT D-Dimer Heparin Anti-Xa Level ABG pH ABG pO2 ABG HCO3 ABG O2 Saturation ABG Base Excess ABG Hemoglobin Oxyhemoglobin Sodium 146 H Potassium Chloride Carbon Dioxide BUN 44 H Creatinine 1.6 H Glucose 144 H POC Glucose Hemoglobin A1c Lactic Acid Calcium 7.9 L Phosphorus 5.10 H D Magnesium Ferritin AST ALT Alkaline Phosphatase Lactate Dehydrogenase Troponin T C-Reactive Protein Total Protein Albumin LDL Cholesterol Direct Urine Creatinine Urine Total Protein Salicylates Acetaminophen Crossmatch 11/13/21 11/13/21 11/13/21 05:52 10:54 15:57 WBC RBC Hgb Hct MCH RDW Plt Count Lymph % (Auto) [place] % (Auto) Lymph # (Auto) [place] # (Auto) Seg Neutrophils % Seg Neuts % (Manual) Lymphocytes % (Manual) Monocytes % (Manual) Basophils % (Manual) Nucleated RBC % Seg Neutrophils # Seg Neutrophils # Man Lymphocytes # (Manual) Monocytes # (Manual) Eosinophils # (Manual) Basophils # (Manual) PT INR APTT D-Dimer Heparin Anti-Xa Level ABG pH ABG pO2 ABG HCO3 ABG O2 Saturation ABG Base Excess ABG Hemoglobin Oxyhemoglobin Sodium Potassium Chloride Carbon Dioxide BUN Creatinine Glucose POC Glucose 123 H 147 H 207 H Hemoglobin A1c Lactic Acid Calcium Phosphorus Magnesium Ferritin AST ALT Alkaline Phosphatase Lactate Dehydrogenase Troponin T C-Reactive Protein Total Protein Albumin LDL Cholesterol Direct Urine Creatinine Urine Total Protein Salicylates Acetaminophen Crossmatch 11/13/21 11/13/21 11/14/21 16:01 23:18 04:55 WBC 23.9 H RBC 2.86 L Hgb 6.5 L 8.3 L Hct 20.3 L 24.5 L MCH RDW Plt Count Lymph % (Auto) [place] % (Auto) Lymph # (Auto) [place] # (Auto) Seg Neutrophils % Seg Neuts % (Manual) Lymphocytes % (Manual) Monocytes % (Manual) Basophils % (Manual) Nucleated RBC % Seg Neutrophils # Seg Neutrophils # Man Lymphocytes # (Manual) Monocytes # (Manual) Eosinophils # (Manual) Basophils # (Manual) PT INR APTT D-Dimer Heparin Anti-Xa Level ABG pH ABG pO2 ABG HCO3 ABG O2 Saturation ABG Base Excess ABG Hemoglobin Oxyhemoglobin Sodium Potassium Chloride Carbon Dioxide BUN Creatinine Glucose POC Glucose 209 H Hemoglobin A1c Lactic Acid Calcium Phosphorus Magnesium Ferritin AST ALT Alkaline Phosphatase Lactate Dehydrogenase Troponin T C-Reactive Protein Total Protein Albumin LDL Cholesterol Direct Urine Creatinine Urine Total Protein Salicylates Acetaminophen Crossmatch 11/14/21 11/14/21 11/14/21 04:55 05:09 11:35 WBC RBC Hgb Hct MCH RDW Plt Count Lymph % (Auto) [place] % (Auto) Lymph # (Auto) [place] # (Auto) Seg Neutrophils % Seg Neuts % (Manual) Lymphocytes % (Manual) Monocytes % (Manual) Basophils % (Manual) Nucleated RBC % Seg Neutrophils # Seg Neutrophils # Man Lymphocytes # (Manual) Monocytes # (Manual) Eosinophils # (Manual) Basophils # (Manual) PT INR APTT D-Dimer Heparin Anti-Xa Level ABG pH ABG pO2 ABG HCO3 ABG O2 Saturation ABG Base Excess ABG Hemoglobin Oxyhemoglobin Sodium 148 H Potassium Chloride 109.0 H Carbon Dioxide BUN 42 H Creatinine 1.6 H Glucose 184 H POC Glucose 169 H 154 H Hemoglobin A1c Lactic Acid Calcium 8.0 L Phosphorus Magnesium Ferritin AST ALT Alkaline Phosphatase Lactate Dehydrogenase Troponin T C-Reactive Protein Total Protein Albumin LDL Cholesterol Direct Urine Creatinine Urine Total Protein Salicylates Acetaminophen Crossmatch 11/14/21 11/14/21 11/15/21 16:57 23:11 04:36 WBC RBC Hgb Hct MCH RDW Plt Count Lymph % (Auto) [place] % (Auto) Lymph # (Auto) [place] # (Auto) Seg Neutrophils % Seg Neuts % (Manual) Lymphocytes % (Manual) Monocytes % (Manual) Basophils % (Manual) Nucleated RBC % Seg Neutrophils # Seg Neutrophils # Man Lymphocytes # (Manual) Monocytes # (Manual) Eosinophils # (Manual) Basophils # (Manual) PT INR APTT D-Dimer Heparin Anti-Xa Level ABG pH ABG pO2 ABG HCO3 ABG O2 Saturation ABG Base Excess ABG Hemoglobin Oxyhemoglobin Sodium 151 H Potassium Chloride 111.2 H Carbon Dioxide BUN 36 H Creatinine 1.3 H Glucose 136 H POC Glucose 124 H 118 H Hemoglobin A1c Lactic Acid Calcium 8.1 L Phosphorus Magnesium Ferritin AST ALT Alkaline Phosphatase Lactate Dehydrogenase Troponin T C-Reactive Protein Total Protein Albumin LDL Cholesterol Direct Urine Creatinine Urine Total Protein Salicylates Acetaminophen Crossmatch 11/15/21 11/15/21 11/16/21 11:18 21:49 00:15 WBC RBC Hgb Hct MCH RDW Plt Count Lymph % (Auto) [place] % (Auto) Lymph # (Auto) [place] # (Auto) Seg Neutrophils % Seg Neuts % (Manual) Lymphocytes % (Manual) Monocytes % (Manual) Basophils % (Manual) Nucleated RBC % Seg Neutrophils # Seg Neutrophils # Man Lymphocytes # (Manual) Monocytes # (Manual) Eosinophils # (Manual) Basophils # (Manual) PT INR APTT D-Dimer Heparin Anti-Xa Level ABG pH ABG pO2 ABG HCO3 ABG O2 Saturation ABG Base Excess ABG Hemoglobin Oxyhemoglobin Sodium Potassium Chloride Carbon Dioxide BUN Creatinine Glucose POC Glucose 154 H 154 H 146 H Hemoglobin A1c Lactic Acid Calcium Phosphorus Magnesium Ferritin AST ALT Alkaline Phosphatase Lactate Dehydrogenase Troponin T C-Reactive Protein Total Protein Albumin LDL Cholesterol Direct Urine Creatinine Urine Total Protein Salicylates Acetaminophen Crossmatch 11/16/21 11/16/21 11/16/21 05:11 05:11 05:37 WBC 18.2 H RBC 2.92 L Hgb 8.3 L Hct 26.1 L MCH RDW 15.8 H Plt Count Lymph % (Auto) 6.3 L [place] % (Auto) 10.2 H Lymph # (Auto) [place] # (Auto) 1.9 H Seg Neutrophils % 81.7 H Seg Neuts % (Manual) Lymphocytes % (Manual) Monocytes % (Manual) Basophils % (Manual) Nucleated RBC % Seg Neutrophils # 14.9 H Seg Neutrophils # Man Lymphocytes # (Manual) Monocytes # (Manual) Eosinophils # (Manual) Basophils # (Manual) PT INR APTT D-Dimer Heparin Anti-Xa Level ABG pH ABG pO2 ABG HCO3 ABG O2 Saturation ABG Base Excess ABG Hemoglobin Oxyhemoglobin Sodium 146 H Potassium Chloride 108.0 H Carbon Dioxide BUN 25 H Creatinine Glucose 123 H POC Glucose 109 H Hemoglobin A1c Lactic Acid Calcium 7.8 L Phosphorus Magnesium Ferritin AST ALT Alkaline Phosphatase Lactate Dehydrogenase Troponin T C-Reactive Protein Total Protein Albumin LDL Cholesterol Direct Urine Creatinine Urine Total Protein Salicylates Acetaminophen Crossmatch 11/16/21 11/16/21 11/17/21 11:22 23:55 04:33 WBC RBC Hgb Hct MCH RDW Plt Count Lymph % (Auto) [place] % (Auto) Lymph # (Auto) [place] # (Auto) Seg Neutrophils % Seg Neuts % (Manual) Lymphocytes % (Manual) Monocytes % (Manual) Basophils % (Manual) Nucleated RBC % Seg Neutrophils # Seg Neutrophils # Man Lymphocytes # (Manual) Monocytes # (Manual) Eosinophils # (Manual) Basophils # (Manual) PT INR APTT D-Dimer Heparin Anti-Xa Level ABG pH ABG pO2 ABG HCO3 ABG O2 Saturation ABG Base Excess ABG Hemoglobin Oxyhemoglobin Sodium Potassium Chloride Carbon Dioxide BUN 20 H Creatinine Glucose POC Glucose 136 H 113 H Hemoglobin A1c Lactic Acid Calcium 7.5 L Phosphorus Magnesium Ferritin AST ALT Alkaline Phosphatase Lactate Dehydrogenase Troponin T C-Reactive Protein Total Protein Albumin LDL Cholesterol Direct Urine Creatinine Urine Total Protein Salicylates Acetaminophen Crossmatch 11/17/21 11/18/21 11/18/21 23:22 04:53 04:53 WBC 13.0 H RBC 2.99 L Hgb 8.5 L Hct 26.4 L MCH RDW Plt Count Lymph % (Auto) 9.5 L [place] % (Auto) 9.8 H Lymph # (Auto) [place] # (Auto) 1.3 H Seg Neutrophils % 78.3 H Seg Neuts % (Manual) Lymphocytes % (Manual) Monocytes % (Manual) Basophils % (Manual) Nucleated RBC % Seg Neutrophils # 10.2 H Seg Neutrophils # Man Lymphocytes # (Manual) Monocytes # (Manual) Eosinophils # (Manual) Basophils # (Manual) PT INR APTT D-Dimer Heparin Anti-Xa Level ABG pH ABG pO2 ABG HCO3 ABG O2 Saturation ABG Base Excess ABG Hemoglobin Oxyhemoglobin Sodium Potassium Chloride Carbon Dioxide BUN 18 H Creatinine Glucose 106 H POC Glucose 112 H Hemoglobin A1c Lactic Acid Calcium 8.1 L Phosphorus Magnesium Ferritin AST ALT Alkaline Phosphatase Lactate Dehydrogenase Troponin T C-Reactive Protein Total Protein Albumin LDL Cholesterol Direct Urine Creatinine Urine Total Protein Salicylates Acetaminophen Crossmatch 11/18/21 11/18/21 11/19/21 11:35 17:42 14:38 WBC RBC Hgb Hct MCH RDW Plt Count Lymph % (Auto) [place] % (Auto) Lymph # (Auto) [place] # (Auto) Seg Neutrophils % Seg Neuts % (Manual) Lymphocytes % (Manual) Monocytes % (Manual) Basophils % (Manual) Nucleated RBC % Seg Neutrophils # Seg Neutrophils # Man Lymphocytes # (Manual) Monocytes # (Manual) Eosinophils # (Manual) Basophils # (Manual) PT INR APTT D-Dimer Heparin Anti-Xa Level ABG pH ABG pO2 ABG HCO3 ABG O2 Saturation ABG Base Excess ABG Hemoglobin Oxyhemoglobin Sodium Potassium Chloride 97.5 L Carbon Dioxide 31 H BUN Creatinine Glucose 146 H POC Glucose 143 H 132 H Hemoglobin A1c Lactic Acid Calcium Phosphorus Magnesium 1.60 L Ferritin AST ALT Alkaline Phosphatase Lactate Dehydrogenase Troponin T C-Reactive Protein Total Protein Albumin LDL Cholesterol Direct Urine Creatinine Urine Total Protein Salicylates Acetaminophen Crossmatch 11/19/21 11/19/21 11/20/21 16:24 23:58 07:42 WBC RBC 3.01 L Hgb 8.6 L Hct 26.7 L MCH RDW 15.4 H Plt Count Lymph % (Auto) [place] % (Auto) Lymph # (Auto) [place] # (Auto) Seg Neutrophils % Seg Neuts % (Manual) Lymphocytes % (Manual) Monocytes % (Manual) Basophils % (Manual) Nucleated RBC % Seg Neutrophils # Seg Neutrophils # Man Lymphocytes # (Manual) Monocytes # (Manual) Eosinophils # (Manual) Basophils # (Manual) PT INR APTT D-Dimer Heparin Anti-Xa Level ABG pH ABG pO2 ABG HCO3 ABG O2 Saturation ABG Base Excess ABG Hemoglobin Oxyhemoglobin Sodium Potassium Chloride Carbon Dioxide BUN Creatinine Glucose POC Glucose 129 H 125 H Hemoglobin A1c Lactic Acid Calcium Phosphorus Magnesium Ferritin AST ALT Alkaline Phosphatase Lactate Dehydrogenase Troponin T C-Reactive Protein Total Protein Albumin LDL Cholesterol Direct Urine Creatinine Urine Total Protein Salicylates Acetaminophen Crossmatch 11/20/21 11/20/21 11/20/21 07:42 11:25 22:59 WBC RBC Hgb Hct MCH RDW Plt Count Lymph % (Auto) [place] % (Auto) Lymph # (Auto) [place] # (Auto) Seg Neutrophils % Seg Neuts % (Manual) Lymphocytes % (Manual) Monocytes % (Manual) Basophils % (Manual) Nucleated RBC % Seg Neutrophils # Seg Neutrophils # Man Lymphocytes # (Manual) Monocytes # (Manual) Eosinophils # (Manual) Basophils # (Manual) PT INR APTT D-Dimer Heparin Anti-Xa Level ABG pH ABG pO2 ABG HCO3 ABG O2 Saturation ABG Base Excess ABG Hemoglobin Oxyhemoglobin Sodium Potassium Chloride Carbon Dioxide 31 H BUN Creatinine Glucose POC Glucose 116 H 113 H Hemoglobin A1c Lactic Acid Calcium Phosphorus Magnesium Ferritin AST ALT Alkaline Phosphatase Lactate Dehydrogenase Troponin T C-Reactive Protein Total Protein Albumin LDL Cholesterol Direct Urine Creatinine Urine Total Protein Salicylates Acetaminophen Crossmatch 11/21/21 11/22/21 11/22/21 10:50 05:10 16:12 WBC RBC Hgb Hct MCH RDW Plt Count Lymph % (Auto) [place] % (Auto) Lymph # (Auto) [place] # (Auto) Seg Neutrophils % Seg Neuts % (Manual) Lymphocytes % (Manual) Monocytes % (Manual) Basophils % (Manual) Nucleated RBC % Seg Neutrophils # Seg Neutrophils # Man Lymphocytes # (Manual) Monocytes # (Manual) Eosinophils # (Manual) Basophils # (Manual) PT INR APTT D-Dimer Heparin Anti-Xa Level ABG pH ABG pO2 ABG HCO3 ABG O2 Saturation ABG Base Excess ABG Hemoglobin Oxyhemoglobin Sodium Potassium Chloride Carbon Dioxide 32 H BUN Creatinine Glucose POC Glucose 156 H 110 H Hemoglobin A1c Lactic Acid Calcium 8.1 L Phosphorus Magnesium Ferritin AST ALT Alkaline Phosphatase Lactate Dehydrogenase Troponin T C-Reactive Protein Total Protein Albumin LDL Cholesterol Direct Urine Creatinine Urine Total Protein Salicylates Acetaminophen Crossmatch 11/23/21 11/23/21 11/23/21 07:18 07:18 11:45 WBC RBC 3.23 L Hgb 9.1 L Hct 28.5 L MCH RDW 15.6 H Plt Count Lymph % (Auto) [place] % (Auto) Lymph # (Auto) [place] # (Auto) Seg Neutrophils % Seg Neuts % (Manual) Lymphocytes % (Manual) Monocytes % (Manual) Basophils % (Manual) Nucleated RBC % Seg Neutrophils # Seg Neutrophils # Man Lymphocytes # (Manual) Monocytes # (Manual) Eosinophils # (Manual) Basophils # (Manual) PT INR APTT D-Dimer Heparin Anti-Xa Level ABG pH ABG pO2 ABG HCO3 ABG O2 Saturation ABG Base Excess ABG Hemoglobin Oxyhemoglobin Sodium Potassium 3.3 L Chloride 96.8 L Carbon Dioxide 32 H BUN Creatinine Glucose POC Glucose 140 H Hemoglobin A1c Lactic Acid Calcium Phosphorus Magnesium Ferritin AST ALT Alkaline Phosphatase Lactate Dehydrogenase Troponin T C-Reactive Protein Total Protein Albumin LDL Cholesterol Direct Urine Creatinine Urine Total Protein Salicylates Acetaminophen Crossmatch 11/23/21 11/23/21 11/24/21 16:40 23:45 07:19 WBC RBC 3.12 L Hgb 9.3 L Hct 27.2 L MCH RDW 16.0 H Plt Count Lymph % (Auto) 10.3 L [place] % (Auto) 10.0 H Lymph # (Auto) 1.1 L [place] # (Auto) 1.1 H Seg Neutrophils % 75.2 H Seg Neuts % (Manual) Lymphocytes % (Manual) Monocytes % (Manual) Basophils % (Manual) Nucleated RBC % Seg Neutrophils # 7.9 H Seg Neutrophils # Man Lymphocytes # (Manual) Monocytes # (Manual) Eosinophils # (Manual) Basophils # (Manual) PT INR APTT D-Dimer Heparin Anti-Xa Level ABG pH ABG pO2 ABG HCO3 ABG O2 Saturation ABG Base Excess ABG Hemoglobin Oxyhemoglobin Sodium Potassium Chloride Carbon Dioxide BUN Creatinine Glucose POC Glucose 140 H 138 H Hemoglobin A1c Lactic Acid Calcium Phosphorus Magnesium Ferritin AST ALT Alkaline Phosphatase Lactate Dehydrogenase Troponin T C-Reactive Protein Total Protein Albumin LDL Cholesterol Direct Urine Creatinine Urine Total Protein Salicylates Acetaminophen Crossmatch 11/24/21 11/24/21 11/24/21 07:19 11:49 15:54 WBC RBC Hgb Hct MCH RDW Plt Count Lymph % (Auto) [place] % (Auto) Lymph # (Auto) [place] # (Auto) Seg Neutrophils % Seg Neuts % (Manual) Lymphocytes % (Manual) Monocytes % (Manual) Basophils % (Manual) Nucleated RBC % Seg Neutrophils # Seg Neutrophils # Man Lymphocytes # (Manual) Monocytes # (Manual) Eosinophils # (Manual) Basophils # (Manual) PT INR APTT D-Dimer Heparin Anti-Xa Level ABG pH ABG pO2 ABG HCO3 ABG O2 Saturation ABG Base Excess ABG Hemoglobin Oxyhemoglobin Sodium Potassium 3.2 L Chloride 96.7 L Carbon Dioxide BUN Creatinine Glucose 125 H POC Glucose 118 H 106 H Hemoglobin A1c Lactic Acid Calcium Phosphorus Magnesium Ferritin AST ALT Alkaline Phosphatase Lactate Dehydrogenase Troponin T C-Reactive Protein Total Protein Albumin LDL Cholesterol Direct Urine Creatinine Urine Total Protein Salicylates Acetaminophen Crossmatch 11/25/21 11/25/21 11/25/21 11:49 15:41 20:51 WBC RBC Hgb Hct MCH RDW Plt Count Lymph % (Auto) [place] % (Auto) Lymph # (Auto) [place] # (Auto) Seg Neutrophils % Seg Neuts % (Manual) Lymphocytes % (Manual) Monocytes % (Manual) Basophils % (Manual) Nucleated RBC % Seg Neutrophils # Seg Neutrophils # Man Lymphocytes # (Manual) Monocytes # (Manual) Eosinophils # (Manual) Basophils # (Manual) PT INR APTT D-Dimer Heparin Anti-Xa Level ABG pH ABG pO2 ABG HCO3 ABG O2 Saturation ABG Base Excess ABG Hemoglobin Oxyhemoglobin Sodium Potassium Chloride Carbon Dioxide BUN Creatinine Glucose POC Glucose 119 H 110 H 109 H Hemoglobin A1c Lactic Acid Calcium Phosphorus Magnesium Ferritin AST ALT Alkaline Phosphatase Lactate Dehydrogenase Troponin T C-Reactive Protein Total Protein Albumin LDL Cholesterol Direct Urine Creatinine Urine Total Protein Salicylates Acetaminophen Crossmatch 11/26/21 11/26/21 11/26/21 07:33 11:20 17:03 WBC RBC Hgb Hct MCH RDW Plt Count Lymph % (Auto) [place] % (Auto) Lymph # (Auto) [place] # (Auto) Seg Neutrophils % Seg Neuts % (Manual) Lymphocytes % (Manual) Monocytes % (Manual) Basophils % (Manual) Nucleated RBC % Seg Neutrophils # Seg Neutrophils # Man Lymphocytes # (Manual) Monocytes # (Manual) Eosinophils # (Manual) Basophils # (Manual) PT INR APTT D-Dimer Heparin Anti-Xa Level ABG pH ABG pO2 ABG HCO3 ABG O2 Saturation ABG Base Excess ABG Hemoglobin Oxyhemoglobin Sodium Potassium Chloride Carbon Dioxide BUN Creatinine Glucose POC Glucose 158 H 162 H 144 H Hemoglobin A1c Lactic Acid Calcium Phosphorus Magnesium Ferritin AST ALT Alkaline Phosphatase Lactate Dehydrogenase Troponin T C-Reactive Protein Total Protein Albumin LDL Cholesterol Direct Urine Creatinine Urine Total Protein Salicylates Acetaminophen Crossmatch 11/26/21 11/27/21 11/27/21 21:51 07:44 12:20 WBC RBC Hgb Hct MCH RDW Plt Count Lymph % (Auto) [place] % (Auto) Lymph # (Auto) [place] # (Auto) Seg Neutrophils % Seg Neuts % (Manual) Lymphocytes % (Manual) Monocytes % (Manual) Basophils % (Manual) Nucleated RBC % Seg Neutrophils # Seg Neutrophils # Man Lymphocytes # (Manual) Monocytes # (Manual) Eosinophils # (Manual) Basophils # (Manual) PT INR APTT D-Dimer Heparin Anti-Xa Level ABG pH ABG pO2 ABG HCO3 ABG O2 Saturation ABG Base Excess ABG Hemoglobin Oxyhemoglobin Sodium Potassium Chloride Carbon Dioxide BUN Creatinine Glucose POC Glucose 132 H 129 H 128 H Hemoglobin A1c Lactic Acid Calcium Phosphorus Magnesium Ferritin AST ALT Alkaline Phosphatase Lactate Dehydrogenase Troponin T C-Reactive Protein Total Protein Albumin LDL Cholesterol Direct Urine Creatinine Urine Total Protein Salicylates Acetaminophen Crossmatch 11/27/21 11/27/21 11/28/21 16:44 21:35 07:54 WBC RBC Hgb Hct MCH RDW Plt Count Lymph % (Auto) [place] % (Auto) Lymph # (Auto) [place] # (Auto) Seg Neutrophils % Seg Neuts % (Manual) Lymphocytes % (Manual) Monocytes % (Manual) Basophils % (Manual) Nucleated RBC % Seg Neutrophils # Seg Neutrophils # Man Lymphocytes # (Manual) Monocytes # (Manual) Eosinophils # (Manual) Basophils # (Manual) PT INR APTT D-Dimer Heparin Anti-Xa Level ABG pH ABG pO2 ABG HCO3 ABG O2 Saturation ABG Base Excess ABG Hemoglobin Oxyhemoglobin Sodium Potassium Chloride Carbon Dioxide BUN Creatinine Glucose POC Glucose 126 H 131 H 124 H Hemoglobin A1c Lactic Acid Calcium Phosphorus Magnesium Ferritin AST ALT Alkaline Phosphatase Lactate Dehydrogenase Troponin T C-Reactive Protein Total Protein Albumin LDL Cholesterol Direct Urine Creatinine Urine Total Protein Salicylates Acetaminophen Crossmatch 11/28/21 11/28/21 11/28/21 11:27 11:56 16:34 WBC 12.3 H RBC 3.18 L Hgb 9.2 L Hct 27.8 L MCH RDW 16.1 H Plt Count Lymph % (Auto) 10.9 L [place] % (Auto) 13.7 H Lymph # (Auto) [place] # (Auto) 1.7 H Seg Neutrophils % 72.2 H Seg Neuts % (Manual) Lymphocytes % (Manual) Monocytes % (Manual) Basophils % (Manual) Nucleated RBC % Seg Neutrophils # 8.9 H Seg Neutrophils # Man Lymphocytes # (Manual) Monocytes # (Manual) Eosinophils # (Manual) Basophils # (Manual) PT INR APTT D-Dimer Heparin Anti-Xa Level ABG pH ABG pO2 ABG HCO3 ABG O2 Saturation ABG Base Excess ABG Hemoglobin Oxyhemoglobin Sodium Potassium Chloride Carbon Dioxide BUN Creatinine Glucose POC Glucose 131 H 123 H Hemoglobin A1c Lactic Acid Calcium Phosphorus Magnesium Ferritin AST ALT Alkaline Phosphatase Lactate Dehydrogenase Troponin T C-Reactive Protein Total Protein Albumin LDL Cholesterol Direct Urine Creatinine Urine Total Protein Salicylates Acetaminophen Crossmatch 11/28/21 11/28/21 11/29/21 19:35 21:32 07:33 WBC RBC Hgb Hct MCH RDW Plt Count Lymph % (Auto) [place] % (Auto) Lymph # (Auto) [place] # (Auto) Seg Neutrophils % Seg Neuts % (Manual) Lymphocytes % (Manual) Monocytes % (Manual) Basophils % (Manual) Nucleated RBC % Seg Neutrophils # Seg Neutrophils # Man Lymphocytes # (Manual) Monocytes # (Manual) Eosinophils # (Manual) Basophils # (Manual) PT INR APTT D-Dimer Heparin Anti-Xa Level 0.12 L ABG pH ABG pO2 ABG HCO3 ABG O2 Saturation ABG Base Excess ABG Hemoglobin Oxyhemoglobin Sodium Potassium Chloride Carbon Dioxide BUN Creatinine Glucose POC Glucose 110 H 108 H Hemoglobin A1c Lactic Acid Calcium Phosphorus Magnesium Ferritin AST ALT Alkaline Phosphatase Lactate Dehydrogenase Troponin T C-Reactive Protein Total Protein Albumin LDL Cholesterol Direct Urine Creatinine Urine Total Protein Salicylates Acetaminophen Crossmatch 11/29/21 11/29/21 11/29/21 11:29 13:51 15:25 WBC 13.0 H RBC 3.41 L Hgb 9.5 L Hct 29.9 L MCH RDW 16.2 H Plt Count Lymph % (Auto) 11.1 L [place] % (Auto) 15.5 H Lymph # (Auto) [place] # (Auto) 2.0 H Seg Neutrophils % 71.8 H Seg Neuts % (Manual) Lymphocytes % (Manual) Monocytes % (Manual) Basophils % (Manual) Nucleated RBC % Seg Neutrophils # 9.3 H Seg Neutrophils # Man Lymphocytes # (Manual) Monocytes # (Manual) Eosinophils # (Manual) Basophils # (Manual) PT INR APTT D-Dimer Heparin Anti-Xa Level ABG pH ABG pO2 ABG HCO3 ABG O2 Saturation ABG Base Excess ABG Hemoglobin Oxyhemoglobin Sodium Potassium Chloride Carbon Dioxide BUN Creatinine Glucose POC Glucose 136 H 123 H Hemoglobin A1c Lactic Acid Calcium Phosphorus Magnesium Ferritin AST ALT Alkaline Phosphatase Lactate Dehydrogenase Troponin T C-Reactive Protein Total Protein Albumin LDL Cholesterol Direct Urine Creatinine Urine Total Protein Salicylates Acetaminophen Crossmatch 11/29/21 11/29/21 11/29/21 18:50 18:50 20:16 WBC RBC Hgb Hct MCH RDW Plt Count Lymph % (Auto) [place] % (Auto) Lymph # (Auto) [place] # (Auto) Seg Neutrophils % Seg Neuts % (Manual) Lymphocytes % (Manual) Monocytes % (Manual) Basophils % (Manual) Nucleated RBC % Seg Neutrophils # Seg Neutrophils # Man Lymphocytes # (Manual) Monocytes # (Manual) Eosinophils # (Manual) Basophils # (Manual) PT INR APTT D-Dimer Heparin Anti-Xa Level 0.21 L ABG pH ABG pO2 ABG HCO3 ABG O2 Saturation ABG Base Excess ABG Hemoglobin Oxyhemoglobin Sodium 126 L Potassium Chloride 86.3 L Carbon Dioxide BUN 38 H Creatinine 3.6 H Glucose 153 H POC Glucose 166 H Hemoglobin A1c Lactic Acid Calcium Phosphorus Magnesium Ferritin AST ALT Alkaline Phosphatase Lactate Dehydrogenase Troponin T C-Reactive Protein Total Protein Albumin LDL Cholesterol Direct Urine Creatinine Urine Total Protein Salicylates Acetaminophen Crossmatch 11/30/21 11/30/21 11/30/21 05:14 07:35 11:15 WBC RBC Hgb 8.7 L Hct 26.8 L MCH RDW Plt Count Lymph % (Auto) [place] % (Auto) Lymph # (Auto) [place] # (Auto) Seg Neutrophils % Seg Neuts % (Manual) Lymphocytes % (Manual) Monocytes % (Manual) Basophils % (Manual) Nucleated RBC % Seg Neutrophils # Seg Neutrophils # Man Lymphocytes # (Manual) Monocytes # (Manual) Eosinophils # (Manual) Basophils # (Manual) PT INR APTT D-Dimer Heparin Anti-Xa Level ABG pH ABG pO2 ABG HCO3 ABG O2 Saturation ABG Base Excess ABG Hemoglobin Oxyhemoglobin Sodium Potassium Chloride Carbon Dioxide BUN Creatinine Glucose POC Glucose 114 H 119 H Hemoglobin A1c Lactic Acid Calcium Phosphorus Magnesium Ferritin AST ALT Alkaline Phosphatase Lactate Dehydrogenase Troponin T C-Reactive Protein Total Protein Albumin LDL Cholesterol Direct Urine Creatinine Urine Total Protein Salicylates Acetaminophen Crossmatch 11/30/21 11/30/21 11/30/21 15:26 17:10 18:51 WBC RBC Hgb Hct MCH RDW Plt Count Lymph % (Auto) [place] % (Auto) Lymph # (Auto) [place] # (Auto) Seg Neutrophils % Seg Neuts % (Manual) Lymphocytes % (Manual) Monocytes % (Manual) Basophils % (Manual) Nucleated RBC % Seg Neutrophils # Seg Neutrophils # Man Lymphocytes # (Manual) Monocytes # (Manual) Eosinophils # (Manual) Basophils # (Manual) PT INR APTT D-Dimer Heparin Anti-Xa Level 0.10 L ABG pH ABG pO2 ABG HCO3 ABG O2 Saturation ABG Base Excess ABG Hemoglobin Oxyhemoglobin Sodium 126 L Potassium Chloride 86.5 L Carbon Dioxide BUN 42 H Creatinine 4.0 H Glucose 155 H POC Glucose 157 H Hemoglobin A1c Lactic Acid Calcium 8.0 L Phosphorus Magnesium Ferritin AST ALT Alkaline Phosphatase Lactate Dehydrogenase Troponin T C-Reactive Protein Total Protein Albumin LDL Cholesterol Direct Urine Creatinine Urine Total Protein Salicylates Acetaminophen Crossmatch 11/30/21 12/01/21 12/01/21 20:04 00:39 09:38 WBC 25.2 H RBC 3.06 L Hgb 8.5 L Hct 26.8 L MCH RDW 16.1 H Plt Count Lymph % (Auto) [place] % (Auto) Lymph # (Auto) [place] # (Auto) Seg Neutrophils % Seg Neuts % (Manual) 80.0 H Lymphocytes % (Manual) 9.0 L Monocytes % (Manual) Basophils % (Manual) Nucleated RBC % Seg Neutrophils # Seg Neutrophils # Man 20.2 H Lymphocytes # (Manual) Monocytes # (Manual) 1.3 H Eosinophils # (Manual) Basophils # (Manual) PT INR APTT D-Dimer Heparin Anti-Xa Level 0.18 L ABG pH ABG pO2 ABG HCO3 ABG O2 Saturation ABG Base Excess ABG Hemoglobin Oxyhemoglobin Sodium Potassium Chloride Carbon Dioxide BUN Creatinine Glucose POC Glucose 115 H Hemoglobin A1c Lactic Acid Calcium Phosphorus Magnesium Ferritin AST ALT Alkaline Phosphatase Lactate Dehydrogenase Troponin T C-Reactive Protein Total Protein Albumin LDL Cholesterol Direct Urine Creatinine Urine Total Protein Salicylates Acetaminophen Crossmatch 12/01/21 12/01/21 12/02/21 09:38 11:35 03:22 WBC 23.3 H RBC 2.61 L Hgb 7.5 L Hct 22.8 L MCH RDW 16.1 H Plt Count Lymph % (Auto) [place] % (Auto) Lymph # (Auto) [place] # (Auto) Seg Neutrophils % Seg Neuts % (Manual) 77.0 H Lymphocytes % (Manual) 7.0 L Monocytes % (Manual) 14.0 H Basophils % (Manual) Nucleated RBC % Seg Neutrophils # Seg Neutrophils # Man 17.9 H Lymphocytes # (Manual) Monocytes # (Manual) 3.3 H Eosinophils # (Manual) Basophils # (Manual) 0.2 H PT INR APTT D-Dimer Heparin Anti-Xa Level ABG pH ABG pO2 ABG HCO3 ABG O2 Saturation ABG Base Excess ABG Hemoglobin Oxyhemoglobin Sodium 127 L Potassium 5.1 H Chloride 87.9 L Carbon Dioxide BUN 49 H Creatinine 4.9 H Glucose 134 H POC Glucose 109 H Hemoglobin A1c Lactic Acid Calcium 7.9 L Phosphorus Magnesium Ferritin AST ALT Alkaline Phosphatase Lactate Dehydrogenase Troponin T C-Reactive Protein Total Protein Albumin LDL Cholesterol Direct Urine Creatinine Urine Total Protein Salicylates Acetaminophen Crossmatch 12/02/21 12/02/21 12/02/21 03:22 03:22 15:40 WBC RBC Hgb Hct MCH RDW Plt Count Lymph % (Auto) [place] % (Auto) Lymph # (Auto) [place] # (Auto) Seg Neutrophils % Seg Neuts % (Manual) Lymphocytes % (Manual) Monocytes % (Manual) Basophils % (Manual) Nucleated RBC % Seg Neutrophils # Seg Neutrophils # Man Lymphocytes # (Manual) Monocytes # (Manual) Eosinophils # (Manual) Basophils # (Manual) PT INR APTT D-Dimer Heparin Anti-Xa Level 0.15 L < 0.10 L ABG pH ABG pO2 ABG HCO3 ABG O2 Saturation ABG Base Excess ABG Hemoglobin Oxyhemoglobin Sodium 129 L Potassium Chloride 91.7 L Carbon Dioxide BUN 42 H Creatinine 4.4 H Glucose POC Glucose Hemoglobin A1c Lactic Acid Calcium 8.0 L Phosphorus 5.20 H Magnesium Ferritin AST ALT Alkaline Phosphatase Lactate Dehydrogenase Troponin T C-Reactive Protein Total Protein Albumin LDL Cholesterol Direct Urine Creatinine Urine Total Protein Salicylates Acetaminophen Crossmatch 12/02/21 12/02/21 12/03/21 17:45 21:03 05:24 WBC 22.3 H RBC 2.69 L Hgb 7.4 L Hct 23.5 L MCH RDW 16.5 H Plt Count Lymph % (Auto) [place] % (Auto) Lymph # (Auto) [place] # (Auto) Seg Neutrophils % Seg Neuts % (Manual) 85.5 H Lymphocytes % (Manual) 6.0 L Monocytes % (Manual) Basophils % (Manual) Nucleated RBC % Seg Neutrophils # Seg Neutrophils # Man 19.1 H Lymphocytes # (Manual) Monocytes # (Manual) 1.0 H Eosinophils # (Manual) 0.7 H Basophils # (Manual) PT INR APTT D-Dimer Heparin Anti-Xa Level ABG pH ABG pO2 ABG HCO3 ABG O2 Saturation ABG Base Excess ABG Hemoglobin Oxyhemoglobin Sodium Potassium Chloride Carbon Dioxide BUN Creatinine Glucose POC Glucose 122 H 121 H Hemoglobin A1c Lactic Acid Calcium Phosphorus Magnesium Ferritin AST ALT Alkaline Phosphatase Lactate Dehydrogenase Troponin T C-Reactive Protein Total Protein Albumin LDL Cholesterol Direct Urine Creatinine Urine Total Protein Salicylates Acetaminophen Crossmatch 12/03/21 12/03/21 12/03/21 08:00 11:19 15:11 WBC RBC Hgb Hct MCH RDW Plt Count Lymph % (Auto) [place] % (Auto) Lymph # (Auto) [place] # (Auto) Seg Neutrophils % Seg Neuts % (Manual) Lymphocytes % (Manual) Monocytes % (Manual) Basophils % (Manual) Nucleated RBC % Seg Neutrophils # Seg Neutrophils # Man Lymphocytes # (Manual) Monocytes # (Manual) Eosinophils # (Manual) Basophils # (Manual) PT INR APTT D-Dimer Heparin Anti-Xa Level ABG pH ABG pO2 ABG HCO3 ABG O2 Saturation ABG Base Excess ABG Hemoglobin Oxyhemoglobin Sodium 134 L Potassium Chloride 95.9 L Carbon Dioxide BUN 30 H Creatinine 3.5 H Glucose 110 H POC Glucose 108 H 117 H Hemoglobin A1c Lactic Acid Calcium Phosphorus Magnesium Ferritin AST ALT Alkaline Phosphatase Lactate Dehydrogenase Troponin T C-Reactive Protein Total Protein Albumin LDL Cholesterol Direct Urine Creatinine Urine Total Protein Salicylates Acetaminophen Crossmatch 12/03/21 12/04/21 12/04/21 20:32 06:15 06:15 WBC 18.5 H RBC 2.88 L Hgb 8.0 L Hct 25.6 L MCH RDW 16.4 H Plt Count Lymph % (Auto) [place] % (Auto) Lymph # (Auto) [place] # (Auto) Seg Neutrophils % Seg Neuts % (Manual) 74.0 H Lymphocytes % (Manual) 11.0 L Monocytes % (Manual) 9.0 H Basophils % (Manual) Nucleated RBC % Seg Neutrophils # Seg Neutrophils # Man 13.7 H Lymphocytes # (Manual) Monocytes # (Manual) 1.7 H Eosinophils # (Manual) Basophils # (Manual) PT INR APTT D-Dimer Heparin Anti-Xa Level ABG pH ABG pO2 ABG HCO3 ABG O2 Saturation ABG Base Excess ABG Hemoglobin Oxyhemoglobin Sodium 135 L Potassium Chloride 96.9 L Carbon Dioxide BUN 19 H Creatinine 2.8 H Glucose 102 H POC Glucose 122 H Hemoglobin A1c Lactic Acid Calcium Phosphorus Magnesium Ferritin AST ALT Alkaline Phosphatase Lactate Dehydrogenase Troponin T C-Reactive Protein Total Protein Albumin LDL Cholesterol Direct Urine Creatinine Urine Total Protein Salicylates Acetaminophen Crossmatch 12/04/21 12/04/21 12/04/21 08:14 11:17 15:58 WBC RBC Hgb Hct MCH RDW Plt Count Lymph % (Auto) [place] % (Auto) Lymph # (Auto) [place] # (Auto) Seg Neutrophils % Seg Neuts % (Manual) Lymphocytes % (Manual) Monocytes % (Manual) Basophils % (Manual) Nucleated RBC % Seg Neutrophils # Seg Neutrophils # Man Lymphocytes # (Manual) Monocytes # (Manual) Eosinophils # (Manual) Basophils # (Manual) PT INR APTT D-Dimer Heparin Anti-Xa Level ABG pH ABG pO2 ABG HCO3 ABG O2 Saturation ABG Base Excess ABG Hemoglobin Oxyhemoglobin Sodium Potassium Chloride Carbon Dioxide BUN Creatinine Glucose POC Glucose 106 H 125 H 113 H Hemoglobin A1c Lactic Acid Calcium Phosphorus Magnesium Ferritin AST ALT Alkaline Phosphatase Lactate Dehydrogenase Troponin T C-Reactive Protein Total Protein Albumin LDL Cholesterol Direct Urine Creatinine Urine Total Protein Salicylates Acetaminophen Crossmatch 12/04/21 12/05/21 12/05/21 20:25 05:05 08:15 WBC 19.4 H RBC 2.89 L Hgb 8.1 L Hct 25.6 L MCH RDW 16.3 H Plt Count Lymph % (Auto) [place] % (Auto) Lymph # (Auto) [place] # (Auto) Seg Neutrophils % Seg Neuts % (Manual) Lymphocytes % (Manual) 13.0 L Monocytes % (Manual) 13.0 H Basophils % (Manual) Nucleated RBC % Seg Neutrophils # Seg Neutrophils # Man 12.4 H Lymphocytes # (Manual) Monocytes # (Manual) 2.5 H Eosinophils # (Manual) 0.8 H Basophils # (Manual) PT INR APTT D-Dimer Heparin Anti-Xa Level ABG pH ABG pO2 ABG HCO3 ABG O2 Saturation ABG Base Excess ABG Hemoglobin Oxyhemoglobin Sodium Potassium Chloride Carbon Dioxide BUN Creatinine Glucose POC Glucose 130 H 107 H Hemoglobin A1c Lactic Acid Calcium Phosphorus Magnesium Ferritin AST ALT Alkaline Phosphatase Lactate Dehydrogenase Troponin T C-Reactive Protein Total Protein Albumin LDL Cholesterol Direct Urine Creatinine Urine Total Protein Salicylates Acetaminophen Crossmatch 12/05/21 12/05/21 12/05/21 11:18 16:42 21:14 WBC RBC Hgb Hct MCH RDW Plt Count Lymph % (Auto) [place] % (Auto) Lymph # (Auto) [place] # (Auto) Seg Neutrophils % Seg Neuts % (Manual) Lymphocytes % (Manual) Monocytes % (Manual) Basophils % (Manual) Nucleated RBC % Seg Neutrophils # Seg Neutrophils # Man Lymphocytes # (Manual) Monocytes # (Manual) Eosinophils # (Manual) Basophils # (Manual) PT INR APTT D-Dimer Heparin Anti-Xa Level ABG pH ABG pO2 ABG HCO3 ABG O2 Saturation ABG Base Excess ABG Hemoglobin Oxyhemoglobin Sodium Potassium Chloride Carbon Dioxide BUN Creatinine Glucose POC Glucose 114 H 122 H 119 H Hemoglobin A1c Lactic Acid Calcium Phosphorus Magnesium Ferritin AST ALT Alkaline Phosphatase Lactate Dehydrogenase Troponin T C-Reactive Protein Total Protein Albumin LDL Cholesterol Direct Urine Creatinine Urine Total Protein Salicylates Acetaminophen Crossmatch 12/05/21 12/06/21 12/06/21 23:51 04:36 04:36 WBC RBC Hgb 8.0 L Hct 25.7 L MCH RDW Plt Count Lymph % (Auto) [place] % (Auto) Lymph # (Auto) [place] # (Auto) Seg Neutrophils % Seg Neuts % (Manual) Lymphocytes % (Manual) Monocytes % (Manual) Basophils % (Manual) Nucleated RBC % Seg Neutrophils # Seg Neutrophils # Man Lymphocytes # (Manual) Monocytes # (Manual) Eosinophils # (Manual) Basophils # (Manual) PT INR APTT D-Dimer Heparin Anti-Xa Level 0.71 H ABG pH ABG pO2 ABG HCO3 ABG O2 Saturation ABG Base Excess ABG Hemoglobin Oxyhemoglobin Sodium 132 L Potassium Chloride 92.5 L Carbon Dioxide BUN 35 H Creatinine 4.0 H Glucose POC Glucose Hemoglobin A1c Lactic Acid Calcium Phosphorus Magnesium Ferritin AST ALT Alkaline Phosphatase Lactate Dehydrogenase Troponin T C-Reactive Protein Total Protein Albumin LDL Cholesterol Direct Urine Creatinine Urine Total Protein Salicylates Acetaminophen Crossmatch 12/06/21 12/06/21 12/06/21 07:32 11:12 15:49 WBC RBC Hgb Hct MCH RDW Plt Count Lymph % (Auto) [place] % (Auto) Lymph # (Auto) [place] # (Auto) Seg Neutrophils % Seg Neuts % (Manual) Lymphocytes % (Manual) Monocytes % (Manual) Basophils % (Manual) Nucleated RBC % Seg Neutrophils # Seg Neutrophils # Man Lymphocytes # (Manual) Monocytes # (Manual) Eosinophils # (Manual) Basophils # (Manual) PT INR APTT D-Dimer Heparin Anti-Xa Level ABG pH ABG pO2 ABG HCO3 ABG O2 Saturation ABG Base Excess ABG Hemoglobin Oxyhemoglobin Sodium Potassium Chloride Carbon Dioxide BUN Creatinine Glucose POC Glucose 106 H 112 H 111 H Hemoglobin A1c Lactic Acid Calcium Phosphorus Magnesium Ferritin AST ALT Alkaline Phosphatase Lactate Dehydrogenase Troponin T C-Reactive Protein Total Protein Albumin LDL Cholesterol Direct Urine Creatinine Urine Total Protein Salicylates Acetaminophen Crossmatch 12/06/21 12/06/21 12/07/21 17:13 21:31 06:11 WBC RBC Hgb Hct MCH RDW Plt Count Lymph % (Auto) [place] % (Auto) Lymph # (Auto) [place] # (Auto) Seg Neutrophils % Seg Neuts % (Manual) Lymphocytes % (Manual) Monocytes % (Manual) Basophils % (Manual) Nucleated RBC % Seg Neutrophils # Seg Neutrophils # Man Lymphocytes # (Manual) Monocytes # (Manual) Eosinophils # (Manual) Basophils # (Manual) PT INR APTT D-Dimer Heparin Anti-Xa Level ABG pH ABG pO2 ABG HCO3 ABG O2 Saturation ABG Base Excess ABG Hemoglobin Oxyhemoglobin Sodium 126 L Potassium Chloride 90.1 L Carbon Dioxide BUN 43 H Creatinine 4.2 H Glucose POC Glucose 113 H 112 H Hemoglobin A1c Lactic Acid Calcium Phosphorus Magnesium Ferritin AST ALT Alkaline Phosphatase Lactate Dehydrogenase Troponin T C-Reactive Protein Total Protein Albumin LDL Cholesterol Direct Urine Creatinine Urine Total Protein Salicylates Acetaminophen Crossmatch 12/07/21 12/07/21 12/08/21 12:04 21:36 04:53 WBC RBC Hgb Hct MCH RDW Plt Count Lymph % (Auto) [place] % (Auto) Lymph # (Auto) [place] # (Auto) Seg Neutrophils % Seg Neuts % (Manual) Lymphocytes % (Manual) Monocytes % (Manual) Basophils % (Manual) Nucleated RBC % Seg Neutrophils # Seg Neutrophils # Man Lymphocytes # (Manual) Monocytes # (Manual) Eosinophils # (Manual) Basophils # (Manual) PT INR APTT D-Dimer Heparin Anti-Xa Level ABG pH ABG pO2 ABG HCO3 ABG O2 Saturation ABG Base Excess ABG Hemoglobin Oxyhemoglobin Sodium 128 L Potassium Chloride 93.1 L Carbon Dioxide 21 L BUN 39 H Creatinine 3.9 H Glucose 103 H POC Glucose 119 H 112 H Hemoglobin A1c Lactic Acid Calcium Phosphorus Magnesium Ferritin AST ALT Alkaline Phosphatase Lactate Dehydrogenase Troponin T C-Reactive Protein Total Protein Albumin LDL Cholesterol Direct Urine Creatinine Urine Total Protein Salicylates Acetaminophen Crossmatch 12/08/21 12/08/21 12/08/21 04:53 08:56 11:20 WBC 24.2 H RBC 2.71 L Hgb 7.6 L Hct 24.1 L MCH RDW 16.7 H Plt Count 114 L Lymph % (Auto) [place] % (Auto) Lymph # (Auto) [place] # (Auto) Seg Neutrophils % Seg Neuts % (Manual) 76.0 H Lymphocytes % (Manual) Monocytes % (Manual) Basophils % (Manual) Nucleated RBC % 1.0 H Seg Neutrophils # Seg Neutrophils # Man 18.4 H Lymphocytes # (Manual) Monocytes # (Manual) 1.5 H Eosinophils # (Manual) 1.0 H Basophils # (Manual) PT INR APTT D-Dimer Heparin Anti-Xa Level 0.94 H ABG pH ABG pO2 ABG HCO3 ABG O2 Saturation ABG Base Excess ABG Hemoglobin Oxyhemoglobin Sodium Potassium Chloride Carbon Dioxide BUN Creatinine Glucose POC Glucose 119 H Hemoglobin A1c Lactic Acid Calcium Phosphorus Magnesium Ferritin AST ALT Alkaline Phosphatase Lactate Dehydrogenase Troponin T C-Reactive Protein Total Protein Albumin LDL Cholesterol Direct Urine Creatinine Urine Total Protein Salicylates Acetaminophen Crossmatch 12/08/21 12/08/21 12/09/21 16:55 21:18 07:05 WBC RBC Hgb Hct MCH RDW Plt Count Lymph % (Auto) [place] % (Auto) Lymph # (Auto) [place] # (Auto) Seg Neutrophils % Seg Neuts % (Manual) Lymphocytes % (Manual) Monocytes % (Manual) Basophils % (Manual) Nucleated RBC % Seg Neutrophils # Seg Neutrophils # Man Lymphocytes # (Manual) Monocytes # (Manual) Eosinophils # (Manual) Basophils # (Manual) PT INR APTT D-Dimer Heparin Anti-Xa Level ABG pH ABG pO2 ABG HCO3 ABG O2 Saturation ABG Base Excess ABG Hemoglobin Oxyhemoglobin Sodium 124 L Potassium Chloride 89.9 L Carbon Dioxide BUN 45 H Creatinine 3.5 H Glucose POC Glucose 112 H 122 H Hemoglobin A1c Lactic Acid Calcium Phosphorus Magnesium Ferritin AST ALT Alkaline Phosphatase Lactate Dehydrogenase Troponin T C-Reactive Protein Total Protein Albumin LDL Cholesterol Direct Urine Creatinine Urine Total Protein Salicylates Acetaminophen Crossmatch 12/09/21 12/09/21 12/10/21 11:02 20:11 05:22 WBC RBC Hgb Hct MCH RDW Plt Count Lymph % (Auto) [place] % (Auto) Lymph # (Auto) [place] # (Auto) Seg Neutrophils % Seg Neuts % (Manual) Lymphocytes % (Manual) Monocytes % (Manual) Basophils % (Manual) Nucleated RBC % Seg Neutrophils # Seg Neutrophils # Man Lymphocytes # (Manual) Monocytes # (Manual) Eosinophils # (Manual) Basophils # (Manual) PT INR APTT D-Dimer Heparin Anti-Xa Level ABG pH ABG pO2 ABG HCO3 ABG O2 Saturation ABG Base Excess ABG Hemoglobin Oxyhemoglobin Sodium 131 L D Potassium Chloride 97.0 L Carbon Dioxide BUN 34 H Creatinine 2.9 H Glucose POC Glucose 132 H 108 H Hemoglobin A1c Lactic Acid Calcium Phosphorus Magnesium Ferritin AST ALT Alkaline Phosphatase Lactate Dehydrogenase Troponin T C-Reactive Protein Total Protein Albumin LDL Cholesterol Direct Urine Creatinine Urine Total Protein Salicylates Acetaminophen Crossmatch 12/10/21 12/10/21 12/10/21 05:22 07:48 11:30 WBC 14.5 H RBC 2.65 L Hgb 7.7 L Hct 23.6 L MCH RDW 17.0 H Plt Count 119 L Lymph % (Auto) [place] % (Auto) Lymph # (Auto) [place] # (Auto) Seg Neutrophils % Seg Neuts % (Manual) 73.0 H Lymphocytes % (Manual) 7.0 L Monocytes % (Manual) Basophils % (Manual) 2.0 H Nucleated RBC % 1.0 H Seg Neutrophils # Seg Neutrophils # Man 10.6 H Lymphocytes # (Manual) 1.0 L Monocytes # (Manual) Eosinophils # (Manual) Basophils # (Manual) 0.3 H PT INR APTT D-Dimer Heparin Anti-Xa Level ABG pH ABG pO2 ABG HCO3 ABG O2 Saturation ABG Base Excess ABG Hemoglobin Oxyhemoglobin Sodium Potassium Chloride Carbon Dioxide BUN Creatinine Glucose POC Glucose 106 H 129 H Hemoglobin A1c Lactic Acid Calcium Phosphorus Magnesium Ferritin AST ALT Alkaline Phosphatase Lactate Dehydrogenase Troponin T C-Reactive Protein Total Protein Albumin LDL Cholesterol Direct Urine Creatinine Urine Total Protein Salicylates Acetaminophen Crossmatch 12/10/21 12/10/21 12/10/21 16:17 20:56 21:40 WBC RBC Hgb Hct MCH RDW Plt Count Lymph % (Auto) [place] % (Auto) Lymph # (Auto) [place] # (Auto) Seg Neutrophils % Seg Neuts % (Manual) Lymphocytes % (Manual) Monocytes % (Manual) Basophils % (Manual) Nucleated RBC % Seg Neutrophils # Seg Neutrophils # Man Lymphocytes # (Manual) Monocytes # (Manual) Eosinophils # (Manual) Basophils # (Manual) PT INR APTT D-Dimer Heparin Anti-Xa Level 0.87 H ABG pH ABG pO2 ABG HCO3 ABG O2 Saturation ABG Base Excess ABG Hemoglobin Oxyhemoglobin Sodium Potassium Chloride Carbon Dioxide BUN Creatinine Glucose POC Glucose 108 H 113 H Hemoglobin A1c Lactic Acid Calcium Phosphorus Magnesium Ferritin AST ALT Alkaline Phosphatase Lactate Dehydrogenase Troponin T C-Reactive Protein Total Protein Albumin LDL Cholesterol Direct Urine Creatinine Urine Total Protein Salicylates Acetaminophen Crossmatch 12/11/21 12/11/21 12/11/21 05:21 05:21 08:10 WBC RBC Hgb Hct MCH RDW Plt Count Lymph % (Auto) [place] % (Auto) Lymph # (Auto) [place] # (Auto) Seg Neutrophils % Seg Neuts % (Manual) Lymphocytes % (Manual) Monocytes % (Manual) Basophils % (Manual) Nucleated RBC % Seg Neutrophils # Seg Neutrophils # Man Lymphocytes # (Manual) Monocytes # (Manual) Eosinophils # (Manual) Basophils # (Manual) PT INR APTT D-Dimer Heparin Anti-Xa Level 0.85 H ABG pH ABG pO2 ABG HCO3 ABG O2 Saturation ABG Base Excess ABG Hemoglobin Oxyhemoglobin Sodium 129 L Potassium Chloride 94.3 L Carbon Dioxide BUN 41 H Creatinine 3.0 H Glucose 111 H POC Glucose 109 H Hemoglobin A1c Lactic Acid Calcium Phosphorus Magnesium Ferritin AST ALT Alkaline Phosphatase Lactate Dehydrogenase Troponin T C-Reactive Protein Total Protein Albumin LDL Cholesterol Direct Urine Creatinine Urine Total Protein Salicylates Acetaminophen Crossmatch 12/11/21 12/11/21 12/11/21 12:00 13:08 13:08 WBC 13.6 H RBC 2.78 L Hgb 8.1 L Hct 25.2 L MCH RDW 17.7 H Plt Count Lymph % (Auto) [place] % (Auto) Lymph # (Auto) [place] # (Auto) Seg Neutrophils % Seg Neuts % (Manual) Lymphocytes % (Manual) Monocytes % (Manual) Basophils % (Manual) Nucleated RBC % Seg Neutrophils # Seg Neutrophils # Man Lymphocytes # (Manual) Monocytes # (Manual) Eosinophils # (Manual) Basophils # (Manual) PT INR APTT 116.8 H* D-Dimer Heparin Anti-Xa Level ABG pH ABG pO2 ABG HCO3 ABG O2 Saturation ABG Base Excess ABG Hemoglobin Oxyhemoglobin Sodium Potassium Chloride Carbon Dioxide BUN Creatinine Glucose POC Glucose 170 H Hemoglobin A1c Lactic Acid Calcium Phosphorus Magnesium Ferritin AST ALT Alkaline Phosphatase Lactate Dehydrogenase Troponin T C-Reactive Protein Total Protein Albumin LDL Cholesterol Direct Urine Creatinine Urine Total Protein Salicylates Acetaminophen Crossmatch 12/11/21 12/12/21 12/12/21 13:08 05:15 14:10 WBC RBC Hgb Hct MCH RDW Plt Count Lymph % (Auto) [place] % (Auto) Lymph # (Auto) [place] # (Auto) Seg Neutrophils % Seg Neuts % (Manual) Lymphocytes % (Manual) Monocytes % (Manual) Basophils % (Manual) Nucleated RBC % Seg Neutrophils # Seg Neutrophils # Man Lymphocytes # (Manual) Monocytes # (Manual) Eosinophils # (Manual) Basophils # (Manual) PT INR APTT D-Dimer Heparin Anti-Xa Level ABG pH 7.333 L ABG pO2 57.0 L ABG HCO3 ABG O2 Saturation 88.0 L ABG Base Excess ABG Hemoglobin 7.6 L Oxyhemoglobin 85.4 L Sodium 129 L Potassium 5.1 H Chloride 95.8 L Carbon Dioxide 21 L BUN 48 H Creatinine 3.0 H 2.9 H Glucose POC Glucose Hemoglobin A1c Lactic Acid Calcium Phosphorus Magnesium Ferritin AST ALT Alkaline Phosphatase Lactate Dehydrogenase Troponin T C-Reactive Protein Total Protein Albumin LDL Cholesterol Direct Urine Creatinine Urine Total Protein Salicylates Acetaminophen Crossmatch 12/12/21 12/13/21 12/13/21 21:25 06:19 16:21 WBC 12.9 H RBC 2.54 L Hgb 7.2 L Hct 22.8 L MCH RDW 18.0 H Plt Count Lymph % (Auto) [place] % (Auto) Lymph # (Auto) [place] # (Auto) Seg Neutrophils % Seg Neuts % (Manual) Lymphocytes % (Manual) Monocytes % (Manual) Basophils % (Manual) Nucleated RBC % Seg Neutrophils # Seg Neutrophils # Man Lymphocytes # (Manual) Monocytes # (Manual) Eosinophils # (Manual) Basophils # (Manual) PT INR APTT D-Dimer Heparin Anti-Xa Level ABG pH ABG pO2 ABG HCO3 ABG O2 Saturation ABG Base Excess ABG Hemoglobin Oxyhemoglobin Sodium Potassium Chloride Carbon Dioxide BUN Creatinine Glucose POC Glucose 125 H 117 H Hemoglobin A1c Lactic Acid Calcium Phosphorus Magnesium Ferritin AST ALT Alkaline Phosphatase Lactate Dehydrogenase Troponin T C-Reactive Protein Total Protein Albumin LDL Cholesterol Direct Urine Creatinine Urine Total Protein Salicylates Acetaminophen Crossmatch 12/13/21 12/14/21 12/14/21 21:20 06:36 12:17 WBC RBC Hgb Hct MCH RDW Plt Count Lymph % (Auto) [place] % (Auto) Lymph # (Auto) [place] # (Auto) Seg Neutrophils % Seg Neuts % (Manual) Lymphocytes % (Manual) Monocytes % (Manual) Basophils % (Manual) Nucleated RBC % Seg Neutrophils # Seg Neutrophils # Man Lymphocytes # (Manual) Monocytes # (Manual) Eosinophils # (Manual) Basophils # (Manual) PT INR APTT D-Dimer Heparin Anti-Xa Level ABG pH ABG pO2 ABG HCO3 ABG O2 Saturation ABG Base Excess ABG Hemoglobin Oxyhemoglobin Sodium 132 L Potassium Chloride Carbon Dioxide BUN 43 H Creatinine 1.9 H Glucose POC Glucose 114 H 130 H Hemoglobin A1c Lactic Acid Calcium Phosphorus Magnesium Ferritin AST ALT < 5 L Alkaline Phosphatase Lactate Dehydrogenase Troponin T C-Reactive Protein Total Protein 6.0 L Albumin 3.0 L LDL Cholesterol Direct Urine Creatinine Urine Total Protein Salicylates Acetaminophen Crossmatch 12/14/21 12/14/21 12/15/21 16:25 20:49 03:59 WBC RBC 2.37 L Hgb 6.9 L Hct 21.4 L MCH RDW 18.4 H Plt Count Lymph % (Auto) [place] % (Auto) Lymph # (Auto) [place] # (Auto) Seg Neutrophils % Seg Neuts % (Manual) Lymphocytes % (Manual) Monocytes % (Manual) Basophils % (Manual) Nucleated RBC % Seg Neutrophils # Seg Neutrophils # Man Lymphocytes # (Manual) Monocytes # (Manual) Eosinophils # (Manual) Basophils # (Manual) PT INR APTT D-Dimer Heparin Anti-Xa Level ABG pH ABG pO2 ABG HCO3 ABG O2 Saturation ABG Base Excess ABG Hemoglobin Oxyhemoglobin Sodium Potassium Chloride Carbon Dioxide BUN Creatinine Glucose POC Glucose 128 H 126 H Hemoglobin A1c Lactic Acid Calcium Phosphorus Magnesium Ferritin AST ALT Alkaline Phosphatase Lactate Dehydrogenase Troponin T C-Reactive Protein Total Protein Albumin LDL Cholesterol Direct Urine Creatinine Urine Total Protein Salicylates Acetaminophen Crossmatch 12/15/21 12/15/21 12/15/21 06:06 12:08 21:05 WBC RBC Hgb Hct MCH RDW Plt Count Lymph % (Auto) [place] % (Auto) Lymph # (Auto) [place] # (Auto) Seg Neutrophils % Seg Neuts % (Manual) Lymphocytes % (Manual) Monocytes % (Manual) Basophils % (Manual) Nucleated RBC % Seg Neutrophils # Seg Neutrophils # Man Lymphocytes # (Manual) Monocytes # (Manual) Eosinophils # (Manual) Basophils # (Manual) PT INR APTT D-Dimer Heparin Anti-Xa Level ABG pH ABG pO2 ABG HCO3 ABG O2 Saturation ABG Base Excess ABG Hemoglobin Oxyhemoglobin Sodium 133 L Potassium Chloride Carbon Dioxide BUN 42 H Creatinine 1.5 H Glucose POC Glucose 146 H Hemoglobin A1c Lactic Acid Calcium Phosphorus Magnesium Ferritin AST ALT Alkaline Phosphatase Lactate Dehydrogenase Troponin T C-Reactive Protein Total Protein Albumin LDL Cholesterol Direct Urine Creatinine Urine Total Protein Salicylates Acetaminophen Crossmatch See Detail 12/16/21 12/16/21 12/16/21 07:03 08:44 11:09 WBC 11.7 H RBC 2.72 L Hgb 8.2 L Hct 25.2 L MCH RDW 19.3 H Plt Count Lymph % (Auto) [place] % (Auto) Lymph # (Auto) [place] # (Auto) Seg Neutrophils % Seg Neuts % (Manual) Lymphocytes % (Manual) Monocytes % (Manual) Basophils % (Manual) Nucleated RBC % Seg Neutrophils # Seg Neutrophils # Man Lymphocytes # (Manual) Monocytes # (Manual) Eosinophils # (Manual) Basophils # (Manual) PT INR APTT D-Dimer Heparin Anti-Xa Level ABG pH ABG pO2 ABG HCO3 ABG O2 Saturation ABG Base Excess ABG Hemoglobin Oxyhemoglobin Sodium 134 L Potassium Chloride Carbon Dioxide BUN 39 H Creatinine 1.5 H Glucose 104 H POC Glucose 134 H Hemoglobin A1c Lactic Acid Calcium Phosphorus Magnesium Ferritin AST ALT Alkaline Phosphatase Lactate Dehydrogenase Troponin T C-Reactive Protein Total Protein Albumin LDL Cholesterol Direct Urine Creatinine Urine Total Protein Salicylates Acetaminophen Crossmatch 12/16/21 12/16/21 12/16/21 15:40 17:35 21:05 WBC RBC 2.81 L Hgb 8.3 L 8.3 L Hct 26.2 L 26.4 L MCH RDW 19.7 H Plt Count Lymph % (Auto) [place] % (Auto) Lymph # (Auto) [place] # (Auto) Seg Neutrophils % Seg Neuts % (Manual) Lymphocytes % (Manual) Monocytes % (Manual) Basophils % (Manual) Nucleated RBC % Seg Neutrophils # Seg Neutrophils # Man Lymphocytes # (Manual) Monocytes # (Manual) Eosinophils # (Manual) Basophils # (Manual) PT INR APTT D-Dimer Heparin Anti-Xa Level ABG pH ABG pO2 ABG HCO3 ABG O2 Saturation ABG Base Excess ABG Hemoglobin Oxyhemoglobin Sodium Potassium Chloride Carbon Dioxide BUN Creatinine Glucose POC Glucose 108 H Hemoglobin A1c Lactic Acid Calcium Phosphorus Magnesium Ferritin AST ALT Alkaline Phosphatase Lactate Dehydrogenase Troponin T C-Reactive Protein Total Protein Albumin LDL Cholesterol Direct Urine Creatinine Urine Total Protein Salicylates Acetaminophen Crossmatch 12/16/21 12/16/21 12/16/21 21:05 21:05 21:49 WBC RBC Hgb Hct MCH RDW Plt Count Lymph % (Auto) [place] % (Auto) Lymph # (Auto) [place] # (Auto) Seg Neutrophils % Seg Neuts % (Manual) Lymphocytes % (Manual) Monocytes % (Manual) Basophils % (Manual) Nucleated RBC % Seg Neutrophils # Seg Neutrophils # Man Lymphocytes # (Manual) Monocytes # (Manual) Eosinophils # (Manual) Basophils # (Manual) PT 16.8 H INR 1.22 H APTT D-Dimer Heparin Anti-Xa Level ABG pH ABG pO2 ABG HCO3 ABG O2 Saturation ABG Base Excess ABG Hemoglobin Oxyhemoglobin Sodium Potassium Chloride Carbon Dioxide BUN Creatinine 1.5 H Glucose POC Glucose 113 H Hemoglobin A1c Lactic Acid Calcium Phosphorus Magnesium Ferritin AST ALT Alkaline Phosphatase Lactate Dehydrogenase Troponin T C-Reactive Protein Total Protein Albumin LDL Cholesterol Direct Urine Creatinine Urine Total Protein Salicylates Acetaminophen Crossmatch 12/17/21 12/17/21 12/17/21 05:59 05:59 05:59 WBC RBC 2.85 L Hgb 8.5 L Hct 26.8 L MCH RDW 19.6 H Plt Count Lymph % (Auto) [place] % (Auto) 15.4 H Lymph # (Auto) [place] # (Auto) 1.1 H Seg Neutrophils % Seg Neuts % (Manual) Lymphocytes % (Manual) Monocytes % (Manual) Basophils % (Manual) Nucleated RBC % Seg Neutrophils # Seg Neutrophils # Man Lymphocytes # (Manual) Monocytes # (Manual) Eosinophils # (Manual) Basophils # (Manual) PT INR APTT D-Dimer Heparin Anti-Xa Level ABG pH ABG pO2 ABG HCO3 ABG O2 Saturation ABG Base Excess ABG Hemoglobin Oxyhemoglobin Sodium 134 L Potassium 5.7 H Chloride Carbon Dioxide BUN 40 H Creatinine 1.5 H 1.5 H Glucose 106 H POC Glucose Hemoglobin A1c Lactic Acid Calcium Phosphorus Magnesium Ferritin AST ALT Alkaline Phosphatase Lactate Dehydrogenase Troponin T C-Reactive Protein Total Protein Albumin LDL Cholesterol Direct Urine Creatinine Urine Total Protein Salicylates Acetaminophen Crossmatch 12/17/21 12/17/21 12/17/21 11:28 16:14 21:34 WBC RBC Hgb Hct MCH RDW Plt Count Lymph % (Auto) [place] % (Auto) Lymph # (Auto) [place] # (Auto) Seg Neutrophils % Seg Neuts % (Manual) Lymphocytes % (Manual) Monocytes % (Manual) Basophils % (Manual) Nucleated RBC % Seg Neutrophils # Seg Neutrophils # Man Lymphocytes # (Manual) Monocytes # (Manual) Eosinophils # (Manual) Basophils # (Manual) PT INR APTT D-Dimer Heparin Anti-Xa Level ABG pH ABG pO2 ABG HCO3 ABG O2 Saturation ABG Base Excess ABG Hemoglobin Oxyhemoglobin Sodium Potassium Chloride Carbon Dioxide BUN Creatinine Glucose POC Glucose 127 H 151 H 137 H Hemoglobin A1c Lactic Acid Calcium Phosphorus Magnesium Ferritin AST ALT Alkaline Phosphatase Lactate Dehydrogenase Troponin T C-Reactive Protein Total Protein Albumin LDL Cholesterol Direct Urine Creatinine Urine Total Protein Salicylates Acetaminophen Crossmatch 12/18/21 12/18/21 12/18/21 05:32 05:32 16:24 WBC RBC 2.85 L Hgb 8.4 L Hct 27.0 L MCH RDW 20.2 H Plt Count Lymph % (Auto) [place] % (Auto) Lymph # (Auto) [place] # (Auto) Seg Neutrophils % Seg Neuts % (Manual) Lymphocytes % (Manual) Monocytes % (Manual) Basophils % (Manual) Nucleated RBC % Seg Neutrophils # Seg Neutrophils # Man Lymphocytes # (Manual) Monocytes # (Manual) Eosinophils # (Manual) Basophils # (Manual) PT INR APTT D-Dimer Heparin Anti-Xa Level ABG pH ABG pO2 ABG HCO3 ABG O2 Saturation ABG Base Excess ABG Hemoglobin Oxyhemoglobin Sodium Potassium Chloride Carbon Dioxide BUN 33 H Creatinine 1.4 H Glucose 105 H POC Glucose 121 H Hemoglobin A1c Lactic Acid Calcium Phosphorus Magnesium Ferritin AST ALT Alkaline Phosphatase Lactate Dehydrogenase Troponin T C-Reactive Protein Total Protein Albumin LDL Cholesterol Direct Urine Creatinine Urine Total Protein Salicylates Acetaminophen Crossmatch 12/18/21 12/19/21 12/19/21 22:48 04:38 17:03 WBC RBC Hgb Hct MCH RDW Plt Count Lymph % (Auto) [place] % (Auto) Lymph # (Auto) [place] # (Auto) Seg Neutrophils % Seg Neuts % (Manual) Lymphocytes % (Manual) Monocytes % (Manual) Basophils % (Manual) Nucleated RBC % Seg Neutrophils # Seg Neutrophils # Man Lymphocytes # (Manual) Monocytes # (Manual) Eosinophils # (Manual) Basophils # (Manual) PT INR APTT D-Dimer Heparin Anti-Xa Level ABG pH ABG pO2 ABG HCO3 ABG O2 Saturation ABG Base Excess ABG Hemoglobin Oxyhemoglobin Sodium Potassium Chloride Carbon Dioxide BUN 34 H Creatinine 1.3 H Glucose 120 H POC Glucose 130 H 114 H Hemoglobin A1c Lactic Acid Calcium Phosphorus Magnesium Ferritin AST ALT Alkaline Phosphatase Lactate Dehydrogenase Troponin T C-Reactive Protein Total Protein Albumin LDL Cholesterol Direct Urine Creatinine Urine Total Protein Salicylates Acetaminophen Crossmatch 12/19/21 12/19/21 12/20/21 20:16 22:50 05:22 WBC RBC Hgb Hct MCH RDW Plt Count Lymph % (Auto) [place] % (Auto) Lymph # (Auto) [place] # (Auto) Seg Neutrophils % Seg Neuts % (Manual) Lymphocytes % (Manual) Monocytes % (Manual) Basophils % (Manual) Nucleated RBC % Seg Neutrophils # Seg Neutrophils # Man Lymphocytes # (Manual) Monocytes # (Manual) Eosinophils # (Manual) Basophils # (Manual) PT INR APTT D-Dimer Heparin Anti-Xa Level ABG pH ABG pO2 ABG HCO3 ABG O2 Saturation ABG Base Excess ABG Hemoglobin Oxyhemoglobin Sodium Potassium Chloride Carbon Dioxide BUN 40 H Creatinine 1.5 H Glucose 120 H POC Glucose 113 H 125 H Hemoglobin A1c Lactic Acid Calcium Phosphorus Magnesium Ferritin AST ALT Alkaline Phosphatase Lactate Dehydrogenase Troponin T C-Reactive Protein Total Protein Albumin LDL Cholesterol Direct Urine Creatinine Urine Total Protein Salicylates Acetaminophen Crossmatch 12/20/21 12/20/21 12/20/21 05:22 08:33 11:10 WBC RBC 2.86 L Hgb 8.5 L Hct 26.9 L MCH RDW 20.3 H Plt Count Lymph % (Auto) [place] % (Auto) Lymph # (Auto) [place] # (Auto) Seg Neutrophils % Seg Neuts % (Manual) Lymphocytes % (Manual) Monocytes % (Manual) Basophils % (Manual) Nucleated RBC % Seg Neutrophils # Seg Neutrophils # Man Lymphocytes # (Manual) Monocytes # (Manual) Eosinophils # (Manual) Basophils # (Manual) PT INR APTT D-Dimer Heparin Anti-Xa Level ABG pH ABG pO2 ABG HCO3 ABG O2 Saturation ABG Base Excess ABG Hemoglobin Oxyhemoglobin Sodium Potassium Chloride Carbon Dioxide BUN Creatinine Glucose POC Glucose 118 H 121 H Hemoglobin A1c Lactic Acid Calcium Phosphorus Magnesium Ferritin AST ALT Alkaline Phosphatase Lactate Dehydrogenase Troponin T C-Reactive Protein Total Protein Albumin LDL Cholesterol Direct Urine Creatinine Urine Total Protein Salicylates Acetaminophen Crossmatch 12/20/21 12/20/21 12/21/21 15:56 20:17 07:53 WBC RBC Hgb Hct MCH RDW Plt Count Lymph % (Auto) [place] % (Auto) Lymph # (Auto) [place] # (Auto) Seg Neutrophils % Seg Neuts % (Manual) Lymphocytes % (Manual) Monocytes % (Manual) Basophils % (Manual) Nucleated RBC % Seg Neutrophils # Seg Neutrophils # Man Lymphocytes # (Manual) Monocytes # (Manual) Eosinophils # (Manual) Basophils # (Manual) PT INR APTT D-Dimer Heparin Anti-Xa Level ABG pH ABG pO2 ABG HCO3 ABG O2 Saturation ABG Base Excess ABG Hemoglobin Oxyhemoglobin Sodium Potassium Chloride Carbon Dioxide BUN Creatinine Glucose POC Glucose 106 H 136 H 115 H Hemoglobin A1c Lactic Acid Calcium Phosphorus Magnesium Ferritin AST ALT Alkaline Phosphatase Lactate Dehydrogenase Troponin T C-Reactive Protein Total Protein Albumin LDL Cholesterol Direct Urine Creatinine Urine Total Protein Salicylates Acetaminophen Crossmatch 12/21/21 12/22/21 16:27 10:00 WBC RBC Hgb Hct MCH RDW Plt Count Lymph % (Auto) [place] % (Auto) Lymph # (Auto) [place] # (Auto) Seg Neutrophils % Seg Neuts % (Manual) Lymphocytes % (Manual) Monocytes % (Manual) Basophils % (Manual) Nucleated RBC % Seg Neutrophils # Seg Neutrophils # Man Lymphocytes # (Manual) Monocytes # (Manual) Eosinophils # (Manual) Basophils # (Manual) PT INR APTT D-Dimer Heparin Anti-Xa Level ABG pH ABG pO2 ABG HCO3 ABG O2 Saturation ABG Base Excess ABG Hemoglobin Oxyhemoglobin Sodium Potassium Chloride Carbon Dioxide BUN 44 H Creatinine 1.6 H Glucose 103 H POC Glucose 127 H Hemoglobin A1c Lactic Acid Calcium Phosphorus Magnesium Ferritin AST ALT Alkaline Phosphatase Lactate Dehydrogenase Troponin T C-Reactive Protein Total Protein Albumin LDL Cholesterol Direct Urine Creatinine Urine Total Protein Salicylates Acetaminophen Crossmatch Allied health notes reviewed: nursing
[2021-12-22] MEDS: MORPHINE 2 MG/1 ML INJ IV PRN (15:42)
--- NOTE | 2021-12-22 18:07 | Progress Note ---
Assessment and Plan --Acute kidney injury likely secondary to vasomotor nephropathy, hypernatremia On hemodialysis, patient received stat hemodialysis yesterday due to hyperkalemia Nephrology following, renal function better today, nephrology recommend daily monitoring And evaluation for HD as needed Possible discharge tomorrow if nephrology clears for discharge --Rectal bleeding /resolved Patient is on Eliquis, will hold Eliquis closely monitor H&H, Consult GI, transfuse PRBC as needed GI Dr. Flores evaluated the patient, advised bowel regimen s/p cardiac arrest, collapse at [facility], HFrEF, shock/hypotension resolved Atrial fibrillation/atrial flutter -Cardiac arrest and collapse at [facility] with ROSC -Cardiology consulted, appreciate recommendations - S/p Cardizem gtt- d/c due to low EF; now on PO Amio -s/p vasopressor support with levophed -Echocardiogram shows left ventricular systolic function severely decreased, LVEF 25 to 30%, no pericardial effusion -proBNP 5622 -Continue Lasix 20 mg twice daily, BB, spironolactone, losartan -No significant volume overload clinically Acute hypoxic respiratory failure, right pneumothorax, Angioedema (resolved), pulmonary edema -[facility] consulted, appreciate recommendations -Intubated on 10/29 and extubated on 11/11 -Bipap q HS and prn, at high risk for KOLBY with morbid obesity -NC during day -s/p right chest tube for pneumothorax -s/p steroids for angioedema -On Lasix for pulmonary edema. Transaminitis likely shocked liver - resolved Shock cardiogenicsuspected sepsis -Fever was as high as 102 with a leukocytosis Blood, urine and sputum cultures negative -COVID-19 PCR negative -S/p empiric antibiotic therapy for possible pneumonia with Rocephin and azithromycin () -S/p Levophed gtt for hypotension -Fever and leukocytosis resolved -Monitor WBC and temperature curve Acute Metabolic encephalopathy, agitation/anxiety -Etiology likely from a cardiac arrest, shock and cerebral hypoperfusion CT head no acute focal parenchymal lesion in the brain -Neurology consulted, appreciate recommendations -EEG and MRI noted, Neuro recommend to cut down on sedation as possible Mental status significantly improved, currently fairly alert and oriented. Answers appropriately. Acute DVT in the left posterior tibial vein and bilateral peroneal veins, Anemia, retroperitoneal bleed -D-dimer greater than 10,000 -CTA chest with no evidence of PE -Bilateral lower extremity ultrasound positive for DVT -Heparin gtt on hold d/t anemia, received PRBC x4 -vasuclar surgery consulted, appreciate recommendations -recommended multiphasic CT angio of the abdomen and pelvis with and without contrast if H/H drops and did not recommend IVC filter at this time as the DVTs are infrapopliteal and recommends a follow-up DVT study weekly for 2 weeks. Repeat venous duplex ultrasound on 11/21 showed progression of left peroneal DVT extending into popliteal vein. Vascular surgery completed IVC filter placement on 11/22. -Trend CBC -SCDs to BLE while in bed -Transfuse hemoglobin less than 7 -Monitor for signs of bleeding -Hemoglobin stable, 8.6 Hypertension, not able be controlled Increase losartan 200 mg daily and add hydralazine as needed. Hyperglycemia ,resolved) -Avoid hypoglycemia -Hbg A1C 6.7 -SSI and lantus q hs (titrate as needed) -Accu-Cheks q. 6 Morbid obesity; BMI 37.0 High risk for KOLBY, On nightly BiPAP Deconditioning PT/OT Disposition; per case management, Multiple social issues. Patient is stable for discharge Brief history and daily hospital course 66 YO Female with Obesity was attending [facility] services when the patient collapsed and lost consciousness. Witnesses began CPR. EMS was notified and upon arrival the patient was found to be in distress without perfusing cardiac rhythm. Patient initiated on ACLS protocol and subsequently intubated in the field and transported to ED. The patient regained spontaneous circulation during transport. She was found to have acute hypoxemic respiratory failure, septic shock suspected secondary to aspiration pneumonia, metabolic acidosis, toxic metabolic encephalopathy, shock liver, and cardiac arrest with return of perfusing cardiac rhythm after initiation of ACLS protocol. Patient initiated on sepsis protocol as well as pneumonia protocol. Patient admitted to ICU. Patient improved, extubated on 11/11 and transferred to floor on 11/19. 10/30: Intubated and sedated, on fentanyl gtt. Open eyes spontaneously but does not follow any commands. On vasopressors, titrate as tolerated for MAP above 65. Patient febrile overnight, continue empiric IV Abx, culture data and COVID PCR pending. Patient is also s/p CT placement due to spontaneous pneumothorax. 2D echo is pending and Cardiology is consulted. 10/31: Patient remains intubated and following commands. Levophed drip stopped and potassium repleted. Patient started on tube feeding. Remains in soft bilateral restraints. 11/01: RN noted ST changes on BSM and 12 lead EKG obtained which showed ST. Given Ativan 1mg for agitation as she is maxed on fentanyl drip and IV push fentanyl did not seem to help. Patient was started on CPAP this morning by RT but remained on fentanyl drip and was having periods of apnea. Plan was to retry CPAP again in the p.m. with sedation off. 11/02: Rate increased r/t hypercapnea on ABG, sedation reduced. Given kionex for hyperkalemia and was started on levophed overnight for hypotension. 11/03: Overnight patient had tachycardia and was given Cardizem and Lopressor. Lopressor was repeated in the a.m. due to tachycardia. Patient will be started on amiodarone with a bolus per cardiology. Patient started on normal saline per liter per [facility] and steroids for angioedema. Noted to have bright red blood when suctioned from oh ETT. Remains on heparin drip as H/H is stable for now. Will reevaluate. Fentanyl drip was restarted last night due to agitation. Dr. Flores updated family today 11/04: Patient was sedated on fentanyl however off sedation is able to follow commands, a.m. labs completed in the p.m. and show hyperkalemia with increased renal function studies. Nephrology, neurology consulted by [facility]. Given Kayexalate, insulin and D50 for hyperkalemia. Patient remains on amiodarone. 11/05: Patient needed to be sedated on fentanyl again to today. overnight krishna was replaced. Hyperkalemia->given kionex 60 for 5.6. Repeat K 6-> Dr. Grant informed and requested bumex, kionex, insulin, d50, calcium gluconate and sodium bicarb with repeat BMP in 2 hours which were placed. HR remains elevated. 11/06: Patient remained in atrial fibrillation/atrial flutter with heart rate in the 150s despite being on amnio drip and was given amnio bolus, Cardizem bolus and started on Cardizem drip by cardiology. Patient is on beta-blockers p.o. scheduled and to feedings changed to Nepro. Kayexalate was given in the morning by nephrology due to hyperkalemia. 11/07: Patient is only responsive to mild stimuli, precedex added in an attempt to wean off fentanyl gtt to better assess her mental status. Neurology also on consult, pending MRI and EEG. Patient remains in Aflutter this am, HR in the 80 to 90s, still on amiodarone and heparin gtt. 11/08: Fentanyl gtt is off, only on precedex gtt. Patient is still not following any commands. MRI brain and EEG completed. Neuro recommendations noted, sedatives agents decreased. FWF added for hypernatremia and low K repleted, repeat labs ordered. Placed a call and spoke with patient's daughter, Eva Brown . She was updated on patient's conditions and status. All questions and concerns were voiced at this time. 11/09: Patient is awake and alert this am, following commands and appropriate. Remains on precedex gtt, plan for possible PST today. Hypertensive overnight, meds adjusted by Cardio and PRN Hydralazine added for SBP greater than 160. CT dislodged overnight, CXR is stable with no significant change. F/U CXR in the am. Patient's daughter, Eva Brown, visited with patient. She was updated on patient's status and goal of care for today. All questions and concerns were voiced at this time. 11/10: Mentation remains intact, still on precedex gtt. This am CXR noted still with fluid overload s/p X1 dose of IV lasix, good response from IV lasix overnight. Hypernatremia improved, D5W d/dayday. Still with persistent hypokalemia, continue electrolytes replacement and frequent lab check. Daily IV lasix and aldactone added by Cardio. Patient is also with persistent low grade fevers overnight, leukocytosis with mild improvement this am. Will get a repeat sputum culture, hold off on IV abx for now. Consider ID consult if fevers and leukocytosis persist. Patient tolerated PST X4hrs yesterday. PST again today, plan to wean to extubate if tolerated. 11/11: IAM overnight. Off precedex gtt and tolerated PST this am. Plan to wean to extubate today. Additional IV lasix given, plan to keep patient at a net negative balance for better lung compliance. F/U CXR in the am. K improved this am, repeat BMP this afternoon since diuresing. Remains with low grade fevers, leukocytosis downtrending, will continue to monitor. Speech/PT/OT ordered 11/12: S/p extubation, now stable on 3L NC. This am CXR noted with no significant changes, lasix changed to IV X4days BID. Drop in H&H this am, and Lt. flank ecchymosis noted. Heparin gtt on hold for now and orders placed for 1 unit of PRBCs and Ct Abd/Pelvis w/o con to r/o retroperitoneal bleed. Pending speech swallow eval, keep patient NPO for now. Patient is stable for IMCU status 11/13: Patient with increased WOB and tachycardia this am, patient was placed on Bipap and precedex gtt was resumed. CXR with mild improvement. CT Abd/Pelvis also reviewed large hematomas noted at the Lt. retroperitoneum and left posterior lateral abdominal wall. Heparin gtt is already on hold, patient is hemodynamically stable. Vascular Surgery consulted for possible IVC filter eval. Patient s/p 2units of PRBCs, will continue to trend H&H and transfuse if hbg is less than 7. Worsening renal function this am, IF diuretic on hold for now. Patient is also febrile with spike in wbcs most likely reactive to bleed, will panculture and hold off on IV Abx for now. Patient also failed speech bedside swallow eval yesterday, NGT in placed plan to resume enteral nutrition 11/14: Patient had bilateral lower extremity Doppler ultrasound and vascular surgery has recommended multiphasic CT angio of the abdomen and pelvis with and without contrast if H/H drops and does not recommend IVC filter at this time as the DVTs are infrapopliteal and recommends a DVT study weekly for 2 weeks. FWF 250 q4 ml per nephro. Started on as needed Xanax and p.o. amiodarone. She did not pass her ST evaluation today. Will be transferred to [facility]. 11/15: Resting comfortably on encounter. Speech cleared for pureed diet. Remains on 3l satting 98 % on bedside encounter. Does not appear to be in respiratory distress. Will continue to hold AC, No ivc filter planned at this time. qweekly doppler to monitor for migration of DVT per vascular. If demonstrated, will consider IVC filter. CBC ordered for tomorrow, will continue monitoring in light of retroperitoneal hematoma. FWF increased by nephrology to 350cc q4hr d/t hypernatremia. UOP/renal function both improved. D/w cardiology, will continue amiodorone an additional 24hrs. Plan to change dosing of metoprolol. Continue to wean off of precedex. Continue xanax scheduled for anxiety. physical therapy recs noted, fernanda / ltac will discuss with CM. Continue IMCU monitoring. 11/16: Pulmonary congestion this AM. CXR ordered. Lasix 40 mg IV x 1 order this AM. Will monitor for 24 hrs. potential downgrade to medical floor tomorrow. 11/17: Persisting pulmonary congestion, was on bipap overnight into this AM. Will order additional lasix 40 mg IV x 2. CXR ordered for AM. Possible downgrade to floor tomorrow. Anticipate d/c sunday. 11/18: Patient seen and examined, continue weaning, will continue diuresis BID, discussed with daughter. 11/19: Patient seen and examined this morning doing well no acute distress noted. Lasix was increased to twice daily to 20 mg IV. Clinically improving. Patient will be transferred to telemetry today can be switched to Lasix p.o. twice daily in a.m. She has her weekly Doppler of lower extremity tomorrow vascular is following for this. She was taken off anticoagulation secondary to retroperitoneal bleed., The anticoagulation was started initially for atrial fibrillation and an infrapopliteal DVT. During her hospital stay she had a prolonged ventilator management and was successfully weaned off. She also received a total of 4 units of packed red blood cell. Hemoglobin has remained stable. Anticipate discharge in next 48 hours if continues to clinically stay stable. : Transferred from ICU on 11/19. Progressive improving. Currently awake and oriented. O2 weaned to 4 L. Hemodynamically stable. BP control being optimized. MiraLAX for constipation. Hemoglobin stable on the heparin infusion, being monitored closely with history of retroperitoneal bleed. 11/21: Patient remains mostly bedridden. She is awake and oriented on 2 L of O2. Repeat ultrasound showed extension of left peroneal DVT into popliteal vein. Heparin was discontinued for significant retroperitoneal bleed and off anticoagulation since. Vascular surgery plan for placement of IVC filter tomorrow. Patient is chest pains, palpitations, hemoptysis. She has some cough. Left lower extremity pain likely from DVT better today. Discussed with the patient, nursing staff and vascular surgery. 11/22: The infrapopliteal vein thrombosis has propagated to the left popliteal vein. Vascular surgery to perform IVC filter placement today. 11/23: Vascular surgery placed IVC filter yesterday. Continue metoprolol 100 mg p.o. twice daily, Aldactone 25 mg p.o. daily and losartan 25 mg p.o. daily. Patient still requiring BiPAP (IPAP18, EPAP8) with FiO2 of 30%. Continue to w adi oxygen per pulmonary recommendations. Nurse reports patient is having vaginal bleeding. We will check serial CBC and pelvic ultrasound 11/24: I discussed with cardiology yesterday the need for a LifeVest. LifeVest is ordered and pending. Patient is s/p IVC filter placement. Continue metoprolol 100 mg p.o. twice daily, Aldactone 25 mg p.o. daily and losartan 25 mg p.o. daily. Patient still requiring BiPAP (IPAP18, EPAP8) with FiO2 of 30%. Continue to wean oxygen per pulmonary recommendations. No further reports of vaginal bleeding. Pelvic ultrasound negative 11/25: Awaiting for LifeVest. Patient is s/p IVC filter placement. Continue metoprolol 100 mg p.o. twice daily, Aldactone 25 mg p.o. daily and losartan 25 mg p.o. daily. Patient still requiring BiPAP (IPAP18, EPAP8) with FiO2 of 30%. Continue to wean oxygen per pulmonary recommendations. 11/26: Physical therapy recommends subacute rehab. Still awaiting LifeVest. Patient is s/p IVC filter placement. Continue metoprolol 100 mg p.o. twice daily, Aldactone 25 mg p.o. daily and losartan 25 mg p.o. daily. Patient still requiring BiPAP (IPAP18, EPAP8) with FiO2 of 30% at night. Continue to wean oxygen per pulmonary recommendations. Patient currently with 2 L O2. 11/27: Physical therapy recommends subacute rehab. Patient has a LifeVest. Patient's left lower extremity pain likely related to DVT. Continue pain control. Continue metoprolol 100 mg p.o. twice daily, Aldactone 25 mg p.o. daily and losartan 25 mg p.o. daily. Patient still requiring BiPAP (IPAP18, EPAP8) with FiO2 of 30% at night. 11/28: Physical therapy recommends subacute rehab. Patient has a LifeVest. Patient continues to complain of left lower extremity pain which makes it very difficult for ambulation. Continue Percocet for pain control. Add neurontin for possible neuropathy. Etiology is likely secondary to DVT. Continue metoprolol 100 mg p.o. twice daily, Aldactone 25 mg p.o. daily and losartan 25 mg p.o. daily. Patient still requiring BiPAP (IPAP18, EPAP8) with FiO2 of 30% at night. Repeated Doppler US of LLE and will ask vascular surgery to revisit. 11/29; worsening lower extremity DVTs, vascular following, on heparin drip 11/30; low-grade fever, leukocytosis, shortness of breath, chest x-ray possible left-sided pneumonia/possible healthcare associated pneumonia Blood cultures already sent, empiric antibiotic cefepime[renal dose confirmed with pharmacist] ID consult if needed 12/01; gram-positive bacteremia preliminary, add vancomycin 1 dose, repeat cultures, consult ID Worsening renal function, nephrology initiated hemodialysis today, patient is critically ill, very poor prognosis, with multiple comorbidities And critical issues. It Architecture Analyst recommendations noted and appreciated 12/02; Gram positive bacteremia/possible HCAP and sepsis, on cefepime and 1 dose Vanco. Nephrology initiated hemodialysis, ID consult. Patient is hypotensive, pulmonary critical recommended transfer to ICU and start vasopressors for close observation overnight. Dr. Padron discussed with patient's daughter over lisa ent's telephone and discussed in detail patient's condition, new developments sepsis, renal failure on hemodialysis anticoagulation for DVT and severe cardiomyopathy, also discussed poor prognosis, and the plans of transferring the patient to ICU for close observation. Many questions, and answered all of them. dr. Padron also discussed with granddaughter at the bedside and patient was moved to ICU, She had numerous questions answered all of them and discussed the current condition prognosis and treatment plan. She verbalized understanding 12/03: Patient was transferred to ICU yesterday evening for hypotension however she did not need to be started on any vasopressin therapy. Patient is on p.o. midodrine and all her antihypertensives have been held. She also received albumin bolus. Patient will be transferred to the floor today. Still complains of bilateral lower extremity pain. Patient is on cefepime and she is scheduled for dialysis today. 12/04: Some complaint of leg pain. Percocet given for pain control. Patient is very deconditioned, will need aggressive PT. Will work on d/c planning with cm. 12/05: Patient does not appear to be in distress this AM. tachycardic hr on e ncounter and overnight, was given diltiazem by salvage clerk. Cardiology initiated metoprolol and amiodorone on patient this morning. She denies any pain except for discomfort in left lower extremity. Controlled with percocet. She also states that she does not have any urine output and has been constipated. Will order bowel regimen. Discharge needs discussed with CM which include Lifevest, BIPAP for nightly use, and possible set up for dialysis. She was visiting on a visa to the from [place] however is technically a citizen of [place] which makes placement a continued challenge. 12/06: Case management reports patient will need LifeVest, walker, CPAP and arrangements for outpatient hemodialysis. However, patient is uninsured. I discussed with the daughter Eva plans for home hospice. Eva reports that she is willing to have hospice to obtain additional resources but is not wanting palliative care/comfort measures. 12/07: Awaiting LifeVest and outpatient HD arrangements. I d/w CM discharge planning. Pt still with heparin drip but amiodarone changed to p.o. 200mg BID. Cont. Metoprolol 50mg BID. Hold LAYO and ARB for renal fxn. Patient for outpatient ischemic evaluation per Cardiology. Leukocytosis likely related to retroperitoneal hematoma. ID wants to monitor off abx. 12/08: Awaiting LifeVest and outpatient HD arrangements. I d/w CM discharge planning. Pt still with heparin drip. Await cardiology recommendations to transition to p.o. anticoagulation. Patient for outpatient ischemic evaluation per Cardiology. Leukocytosis likely related to retroperitoneal hematoma. Continue to monitor off antibiotics. Continue volume management per nephrology with hemodialysis 12/09: Patient with PermCath placement today. Nephrology reports patient hypotensive during hemodialysis and started 10 mg of midodrine for hypotension. Losartan discontinued. Continue to obtain daily weights and Strict I/O's. Renally dose medications and avoid nephrotoxic agents. Patient for outpatient ischemic evaluation per Cardiology. Leukocytosis likely related to retroperiton eal hematoma. Continue to monitor off antibiotics. Awaiting LifeVest and outpatient HD arrangements. 12/10: Continue hemodialysis per nephrology recommendations. We will discontinue heparin drip and start Eliquis 5 mg p.o. twice daily for anticoagulation. Blood pressure appears to be improved. Continue midodrine. Continue to obtain daily weights and Strict I/O's. Renally dose medications and avoid nephrotoxic agents. Patient for outpatient ischemic evaluation per Cardiology. Leukocytosis likely related to retroperitoneal hematoma. Continue to monitor off antibiotics. Awaiting LifeVest and outpatient HD arrangements. 12/11: Cardiology plans for Lexiscan in a.m. Continue hemodialysis per nephrology recommendations. We will discontinue heparin drip and start Eliquis 5 mg p.o. twice daily for anticoagulation. Blood pressure appears to be improved. Continue midodrine. Continue to obtain daily weights and Strict I/O's. Renally dose medications and avoid nephrotoxic agents. 12/12: Lexiscan this morning per cardiology. Continue hemodialysis per nephrology recommendations. Continue Eliquis for anticoagulation. Continue midodrine. Continue to obtain daily weights and Strict I/O's. Renally dose medications and avoid nephrotoxic agents. 12/14; Lexiscan test yesterday was negative for ischemia, patient receiving physical therapy, hemodialysis DC planning per case management. Hospice placement, multiple social issues 3;24; received 1 unit PRBC transfusion as patient has anemia with hemoglobin of 6.9 follow H&H and transfuse additional PRBC as needed DC planning per case management 3;25; patient had episode of rectal bleeding/melena this afternoon, patient received 1 unit PRBC yesterday for hemoglobin of 6.9 which improved to 8.2 Closely monitor H&H and transfuse additional PRBC as needed, GI consulted[discussed with Dr. Austyn Saleh] Hold Eliquis, I discussed in detail with the patient and her daughter about her recent benefits and consequences of holding Eliquis in the setting of DVT and A. fib due to severe bleeding, they verbalized understanding, patient does not have new episodes of bleeding we will resume Eliquis and closely monitor 12/17; patient did not have any new episodes of rectal bleeding, hemoglobin and hematocrit is stable, initially planning to discharge the patient home, however patient had hyperkalemia, nephrology scheduled for stat hemodialysis today, they wanted to closely monitor. Possible discharge in 1 to 2 days if cleared by nephrology. 12/18; patient's renal function is better today, no dialysis, hemoglobin above 8, hemodynamically stable Possible discharge tomorrow if patient is stable and cleared by nephrology 12/19; patient is being discharged home today, discussed with case management team, discussed with other consultants who cleared. Discussed with patient's daughter Ms. Eva Brown. 12/20; patient was discharged today however did not go till now, will continue current management DC planning per Case management 12/21; CM working on discharge plan, daughter did not show up to orange picker the patient, cont supportive care. 12/22; daughter stated that she will be available to receive the patient tomorrow morning, continue to follow clinically, director of casework department working on discharge planning, patient medically stable for discharge. Hospitalist Physical General appearance: Present: no acute distress, well-nourished, obese (Morbidly obese), other (Minimally communicative) - EENT Eyes: Present: PERRL, EOM intact - Neck Neck: Present: supple, normal ROM - Respiratory Respiratory effort: normal Respiratory: bilateral: diminished, negative: rales, rhonchi, wheezing - Cardiovascular Rhythm: regular Heart Sounds: Present: S1 & S2 - Extremities Extremities: no ischemia, No edema - Abdominal General gastrointestinal: soft, non-tender, non-distended - Integumentary Integumentary: Present: clear, warm - Psychiatric Psychiatric: appropriate mood/affect, cooperative - Neurologic Neurologic: moves all extremities Subjective Date of service: 12/22/21 Principal diagnosis: AHRF; Cardiac arrest; R. pneumothorax; pneumonia; AMS; DVT's; SIERRA; Obesity Interval history: Seen and examined the patient this morning No acute event overnight, vitals noted, feels better Patient is planned to discharge home with 16/04 family support and home health But family member is not available to receive the patient until tomorrow morning Objective - Constitutional Vitals: Vital Signs - 12hr 12/22/21 12/22/21 12/22/21 07:09 09:16 09:26 Temperature 98.0 F Pulse Rate 64 Respiratory 18 Rate Blood Pressure 111/56 Blood Pressure [Left] O2 Sat by Pulse 96 99 100 Oximetry 12/22/21 12/22/21 12/22/21 10:30 11:01 16:00 Temperature 97.9 F 98.9 F Pulse Rate 118 H 103 H 64 Respiratory 20 18 Rate Blood Pressure Blood Pressure 116/76 112/82 [Left] O2 Sat by Pulse 99 99 Oximetry - Labs CBC & Chem 7: 12/20/21 05:22 12/23/21 08:17 Labs: Abnormal lab results 12/21/21 12/21/21 12/22/21 Range/Units 07:53 16:27 07:07 BUN (7-17) mg/dL Creatinine (0.6-1.2) mg/dL Glucose (65-100) mg/dL POC Glucose 115 H 127 H 125 H (70-105) mg/dL 12/22/21 12/22/21 Range/Units 10:00 11:39 BUN 44 H (7-17) mg/dL Creatinine 1.6 H (0.6-1.2) mg/dL Glucose 103 H (65-100) mg/dL POC Glucose 135 H (70-105) mg/dL HEART Score - HEART Score Troponin: Troponin T 1.150 ng/mL (0.00-0.029) H* D 10/29/21 22:34
[2021-12-23] MEDS: GABAPENTIN 100 MG CAP PO SCH (05:50)
[2021-12-23] MEDS: FUROSEMIDE 40 MG TAB PO SCH (05:50)
[2021-12-23 07:52] VITALS: BP 136/86
[2021-12-23] MEDS: METOPROLOL TARTRATE 50 MG TAB PO SCH (09:19)
[2021-12-23] MEDS: oxyCODONE /ACETAMINOPHEN 5-325MG TAB PO PRN (09:19)
[2021-12-23] MEDS: FAMOTIDINE 10 MG TAB PO SCH (09:20)
[2021-12-23] MEDS: AMIODARONE 200 MG TAB PO SCH (09:20)
[2021-12-23] MEDS: APIXABAN 5 MG TAB PO SCH (09:20)
[2021-12-23] MEDS: DOCUSATE SODIUM 100 MG CAP PO SCH (09:20)
[2021-12-23] MEDS: INSULIN LISPRO 100 UNIT/ML SUB-Q SCH (09:20)
[2021-12-23] MEDS: MIDODRINE 5 MG TAB PO SCH (09:20)
--- NOTE | 2021-12-23 09:37 | Discharge Summary ---
Providers - Providers Date of Admission: 10/29/21 17:04 Date of discharge: 12/23/21 Attending physician: JOSH CRAVEN 10/29/21 14:29 Consult to Physician [CONS] Stat Comment: noted Consulting Provider: BETHANY INMAN Physician Instructions: Reason For Exam: cardiac arrestn w rosc 10/30/21 07:43 Consult to Physician [CONS] Routine Comment: called answ. serv./ ирина Consulting Provider: SHIRIN CUTLER Physician Instructions: Reason For Exam: S/p Cardiac Arrest 10/31/21 08:56 Consult to Dietitian/Nutrition [CONS] Routine Physician Instructions: Assess nutrtn needs, initiate, modify, manage TF Reason For Exam: Reason for Consult: Write/Manage Tube Feeding Reason for Consult: Write/Manage Tube Feeding 11/04/21 13:13 Consult to Physician [CONS] Routine Comment: Consulting Provider: DHRUV GRANT Physician Instructions: Reason For Exam: [place] 11/04/21 14:18 Consult to Physician [CONS] Routine Comment: Consulting Provider: ELVIRA EDWARSD Physician Instructions: Reason For Exam: AMS s/p Cardiac arrest 11/11/21 13:15 Midline [Consult to PICC Line RN] [CONS] Routine Reason For Exam: PIV neededf to D/C Central Line Type Line:: Midline 11/11/21 13:16 Speech Therapy Evaluation and Treat [CONS] Routine Reason For Exam: Post Extubation 11/11/21 14:17 Occupational Therapy Evaluate and Treat [CONS] Routine Comment: Reason For Exam: Debility Physical Therapy Evaluation and Treat [CONS] Routine Comment: Reason For Exam: Eval and Treat 11/12/21 16:44 Consult to Physician [CONS] Routine Comment: Consulting Provider: NAHEED WHYTE Physician Instructions: Reason For Exam: IVC FILTER EVAL 11/30/21 14:11 Consult to Physician [CONS] Routine Comment: Consulting Provider: RUFINO MAYORGA Physician Instructions: Reason For Exam: Acute kidney injury/creatinine 3.4/reconsult 12/01/21 11:48 Consult to Interventional Radiology [CONS] Routine Consulting Provider: NAHEED LOPEZ Reason For Exam: Vasc cath placement Place consult to:: Dr. Del Real Notified:: Alba NAYAK Comment:: Dr. Lopez is aware of consult. 12/01/21 13:03 Consult to Physician [CONS] Routine Comment: Consulting Provider: DHRUV GRANT Physician Instructions: Reason For Exam: renal failure 12/01/21 18:53 Consult to Physician [CONS] Routine Comment: Consulting Provider: GUERLINE ESPINO Physician Instructions: Reason For Exam: Gram-positive bacteremia/sepsis 12/16/21 14:04 Consult to Physician [CONS] Routine Comment: Consulting Provider: KARLEY FLORES Physician Instructions: Reason For Exam: Rectal bleeding Primary care physician: SUPERVISOR BLAST FURNACE Hospitalization Condition: Critical Hospital course: Brief history and daily hospital course 66 YO Female with Obesity was attending jew services when the patient collapsed and lost consciousness. Witnesses began CPR. EMS was notified and upon arrival the patient was found to be in distress without perfusing cardiac rhythm. Patient initiated on ACLS protocol and subsequently intubated in the field and transported to ED. The patient regained spontaneous circulation during transport. She was found to have acute hypoxemic respiratory failure, septic shock suspected secondary to aspiration pneumonia, metabolic acidosis, toxic metabolic encephalopathy, shock liver, and cardiac arrest with return of perfusing cardiac rhythm after initiation of ACLS protocol. Patient initiated on sepsis protocol as well as pneumonia protocol. Patient admitted to ICU. Patient improved, extubated on 11/11 and transferred to floor on 11/19. 10/30: Intubated and sedated, on fentanyl gtt. Open eyes spontaneously but does not follow any commands. On vasopressors, titrate as tolerated for MAP above 65. Patient febrile overnight, continue empiric IV Abx, culture data and COVID PCR pending. Patient is also s/p CT placement due to spontaneous pneumothorax. 2D echo is pending and Cardiology is consulted. 10/31: Patient remains intubated and following commands. Levophed drip stopped and potassium repleted. Patient started on tube feeding. Remains in soft bilateral restraints. 11/01: RN noted ST changes on BSM and 12 lead EKG obtained which showed ST. Given Ativan 1mg for agitation as she is maxed on fentanyl drip and IV push fentanyl did not seem to help. Patient was started on CPAP this morning by RT but remained on fentanyl drip and was having periods of apnea. Plan was to retry CPAP again in the p.m. with sedation off. 11/02: Rate increased r/t hypercapnea on ABG, sedation reduced. Given kionex for hyperkalemia and was started on levophed overnight for hypotension. 11/03: Overnight patient had tachycardia and was given Cardizem and Lopressor. Lopressor was repeated in the a.m. due to tachycardia. Patient will be started on amiodarone with a bolus per cardiology. Patient started on normal saline per liter per [facility] and steroids for angioedema. Noted to have bright red blood when suctioned from oh ETT. Remains on heparin drip as H/H is stable for now. Will reevaluate. Fentanyl drip was restarted last night due to agitation. Dr. Flores updated family today 11/04: Patient was sedated on fentanyl however off sedation is able to follow commands, a.m. labs completed in the p.m. and show hyperkalemia with increased renal function studies. Nephrology, neurology consulted by [facility]. Given Kayexalate, insulin and D50 for hyperkalemia. Patient remains on amiodarone. 11/05: Patient needed to be sedated on fentanyl again to today. overnight krishna was replaced. Hyperkalemia->given kionex 60 for 5.6. Repeat K 6-> Dr. Grant informed and requested bumex, kionex, insulin, d50, calcium gluconate and sodium bicarb with repeat BMP in 2 hours which were placed. HR remains elevated. 11/06: Patient remained in atrial fibrillation/atrial flutter with heart rate in the 150s despite being on amnio drip and was given amnio bolus, Cardizem bolus and started on Cardizem drip by cardiology. Patient is on beta-blockers p.o. scheduled and to feedings changed to Nepro. Kayexalate was given in the morning by nephrology due to hyperkalemia. 11/07: Patient is only responsive to mild stimuli, precedex added in an attempt to wean off fentanyl gtt to better assess her mental status. Neurology also on consult, pending MRI and EEG. Patient remains in Aflutter this am, HR in the 80 to 90s, still on amiodarone and heparin gtt. 11/08: Fentanyl gtt is off, only on precedex gtt. Patient is still not following any commands. MRI brain and EEG completed. Neuro recommendations noted, sedat jose agents decreased. FWF added for hypernatremia and low K repleted, repeat labs ordered. Placed a call and spoke with patient's daughter, Eva Brown . She was updated on patient's conditions and status. All questions and concerns were voiced at this time. 11/09: Patient is awake and alert this am, following commands and appropriate. Remains on precedex gtt, plan for possible PST today. Hypertensive overnight, meds adjusted by Cardio and PRN Hydralazine added for SBP greater than 160. CT dislodged overnight, CXR is stable with no significant change. F/U CXR in the am. Patient's daughter, Eva Brown, visited with patient. She was updated on patient's status and goal of care for today. All questions and concerns were voiced at this time. 11/10: Mentation remains intact, still on precedex gtt. This am CXR noted still with fluid overload s/p X1 dose of IV lasix, good response from IV lasix overnight. Hypernatremia improved, D5W d/dayday. Still with persistent hypokalemia, continue electrolytes replacement and frequent lab check. Daily IV lasix and aldactone added by Cardio. Patient is also with persistent low grade fevers overnight, leukocytosis with mild improvement this am. Will get a repeat sputum culture, hold off on IV abx for now. Consider ID consult if fevers and leukocytosis persist. Patient tolerated PST X4hrs yesterday. PST again today, plan to wean to extubate if tolerated. 11/11: IAM overnight. Off precedex gtt and tolerated PST this am. Plan to wean to extubate today. Additional IV lasix given, plan to keep patient at a net negative balance for better lung compliance. F/U CXR in the am. K improved this am, repeat BMP this afternoon since diuresing. Remains with low grade fevers, leukocytosis downtrending, will continue to monitor. Speech/PT/OT ordered 11/12: S/p extubation, now stable on 3L NC. This am CXR noted with no significant changes, lasix changed to IV X4days BID. Drop in H&H this am, and Lt. flank ecchymosis noted. Heparin gtt on hold for now and orders placed for 1 unit of PRBCs and Ct Abd/Pelvis w/o con to r/o retroperitoneal bleed. Pending speech swallow eval, keep patient NPO for now. Patient is stable for IMCU status 11/13: Patient with increased WOB and tachycardia this am, patient was placed on Bipap and precedex gtt was resumed. CXR with mild improvement. CT Abd/Pelvis also reviewed large hematomas noted at the Lt. retroperitoneum and left posterior lateral abdominal wall. Heparin gtt is already on hold, patient is hemodynamically stable. Vascular Surgery consulted for possible IVC filter eval. Patient s/p 2units of PRBCs, will continue to trend H&H and transfuse if hbg is less than 7. Worsening renal function this am, IF diuretic on hold for now. Patient is also febrile with spike in wbcs most likely reactive to bleed, will panculture and hold off on IV Abx for now. Patient also failed speech bedside swallow eval yesterday, NGT in placed plan to resume enteral nutrition 11/14: Patient had bilateral lower extremity Doppler ultrasound and vascular surgery has recommended multiphasic CT angio of the abdomen and pelvis with and without contrast if H/H drops and does not recommend IVC filter at this time as the DVTs are infrapopliteal and recommends a DVT study weekly for 2 weeks. FWF 250 q4 ml per nephro. Started on as needed Xanax and p.o. amiodarone. She did not pass her ST evaluation today. Will be transferred to [facility]. 11/15: Resting comfortably on encounter. Speech cleared for pureed diet. Remains on 3l satting 98 % on bedside encounter. Does not appear to be in respiratory distress. Will continue to hold AC, No ivc filter planned at this time. qweekly doppler to monitor for migration of DVT per vascular. If demonstrated, will consider IVC filter. CBC ordered for tomorrow, will continue monitoring in light of retroperitoneal hematoma. FWF increased by nephrology to 350cc q4hr d/t hypernatremia. UOP/renal function both improved. D/w cardiology, will continue amiodorone an additional 24hrs. Plan to change dosing of metoprolol. Continue to wean off of precedex. Continue xanax scheduled for anxiety. physical therapy recs noted, fernanda / ltac will discuss with CM. Continue IMCU monitoring. 11/16: Pulmonary congestion this AM. CXR ordered. Lasix 40 mg IV x 1 order this AM. Will monitor for 24 hrs. potential downgrade to medical floor tomorrow. 11/17: Persisting pulmonary congestion, was on bipap overnight into this AM. Will order additional lasix 40 mg IV x 2. CXR ordered for AM. Possible downgrade to floor tomorrow. Anticipate d/c sunday. 11/18: Patient seen and examined, continue weaning, will continue diuresis BID, discussed with daughter. 11/19: Patient seen and examined this morning doing well no acute distress noted. Lasix was increased to twice daily to 20 mg IV. Clinically improving. Patient will be transferred to telemetry today can be switched to Lasix p.o. twice daily in a.m. She has her weekly Doppler of lower extremity tomorrow vascular is following for this. She was taken off anticoagulation secondary to retroperitoneal bleed., The anticoagulation was started initially for atrial fibrillation and an infrapopliteal DVT. During her hospital stay she had a prolonged ventilator management and was successfully weaned off. She also received a total of 4 units of packed red blood cell. Hemoglobin has remained stable. Anticipate discharge in next 48 hours if continues to clinically stay stable. : Transferred from ICU on 11/19. Progressive improving. Currently awake and oriented. O2 weaned to 4 L. Hemodynamically stable. BP control being optimized. MiraLAX for constipation. Hemoglobin stable on the heparin infusion, being monitored closely with history of retroperitoneal bleed. 11/21: Patient remains mostly bedridden. She is awake and oriented on 2 L of O2. Repeat ultrasound showed extension of left peroneal DVT into popliteal vein. Heparin was discontinued for significant retroperitoneal bleed and off anticoagulation since. Vascular surgery plan for placement of IVC filter tomorrow. Patient is chest pains, palpitations, hemoptysis. She has some cough. Left lower extremity pain likely from DVT better today. Discussed with the patient, nursing staff and vascular surgery. 11/22: The infrapopliteal vein thrombosis has propagated to the left popliteal vein. Vascular surgery to perform IVC filter placement today. 11/23: Vascular surgery placed IVC filter yesterday. Continue metoprolol 100 mg p.o. twice daily, Aldactone 25 mg p.o. daily and losartan 25 mg p.o. daily. Patient still requiring BiPAP (IPAP18, EPAP8) with FiO2 of 30%. Continue to wean oxygen per pulmonary recommendations. Nurse reports patient is having vaginal bleeding. We will check serial CBC and pelvic ultrasound 11/24: I discussed with cardiology yesterday the need for a LifeVest. LifeVest is ordered and pending. Patient is s/p IVC filter placement. Continue metoprolol 100 mg p.o. twice daily, Aldactone 25 mg p.o. daily and losartan 25 mg p.o. daily. Patient still requiring BiPAP (IPAP18, EPAP8) with FiO2 of 30%. Continue to wean oxygen per pulmonary recommendations. No further reports of vaginal bleeding. Pelvic ultrasound negative 11/25: Awaiting for LifeVest. Patient is s/p IVC filter placement. Continue metoprolol 100 mg p.o. twice daily, Aldactone 25 mg p.o. daily and losartan 25 mg p.o. daily. Patient still requiring BiPAP (IPAP18, EPAP8) with FiO2 of 30%. Continue to wean oxygen per pulmonary recommendations. 11/26: Physical therapy recommends subacute rehab. Still awaiting LifeVest. Patient is s/p IVC filter placement. Continue metoprolol 100 mg p.o. twice daily, Aldactone 25 mg p.o. daily and losartan 25 mg p.o. daily. Patient still requiring BiPAP (IPAP18, EPAP8) with FiO2 of 30% at night. Continue to wean oxygen per pulmonary recommendations. Patient currently with 2 L O2. 11/27: Physical therapy recommends subacute rehab. Patient has a LifeVest. Patient's left lower extremity pain likely related to DVT. Continue pain control. Continue metoprolol 100 mg p.o. twice daily, Aldactone 25 mg p.o. daily and losartan 25 mg p.o. daily. Patient still requiring BiPAP (IPAP18, EPAP8) with FiO2 of 30% at night. 11/28: Physical therapy recommends subacute rehab. Patient has a LifeVest. Patient continues to complain of left lower extremity pain which makes it very difficult for ambulation. Continue Percocet for pain control. Add neurontin for possible neuropathy. Etiology is likely secondary to DVT. Continue meto prolol 100 mg p.o. twice daily, Aldactone 25 mg p.o. daily and losartan 25 mg p.o. daily. Patient still requiring BiPAP (IPAP18, EPAP8) with FiO2 of 30% at night. Repeated Doppler US of LLE and will ask vascular surgery to revisit. 11/29; worsening lower extremity DVTs, vascular following, on heparin drip 11/30; low-grade fever, leukocytosis, shortness of breath, chest x-ray possible left-sided pneumonia/possible healthcare associated pneumonia Blood cultures already sent, empiric antibiotic cefepime[renal dose confirmed with pharmacist] ID consult if needed 12/01; gram-positive bacteremia preliminary, add vancomycin 1 dose, repeat cultures, consult ID Worsening renal function, nephrology initiated hemodialysis today, patient is critically ill, very poor prognosis, with multiple comorbidities And critical issues. Change Management Expert recommendations noted and appreciated 12/02; Gram positive bacteremia/possible HCAP and sepsis, on cefepime and 1 dose Vanco. Nephrology initiated hemodialysis, ID consult. Patient is hypotensive, pulmonary critical recommended transfer to ICU and start vasopressors for close observation overnight. Dr. Padron discussed with patient's daughter over patient's telephone and discussed in detail patient's condition, new developments sepsis, renal failure on hemodialysis anticoagulation for DVT and severe cardiomyopathy, also discussed poor prognosis, and the plans of transferring the patient to ICU for close observation. Many questions, and answered all of them. dr. Padron also discussed with granddaughter at the bedside and patient was moved to ICU, She had numerous questions answered all of them and discussed the current condition prognosis and treatment plan. She verbalized understanding 12/03: Patient was transferred to ICU yesterday evening for hypotension however she did not need to be started on any vasopressin therapy. Patient is on p.o. midodrine and all her antihypertensives have been held. She also received albumin bolus. Patient will be transferred to the floor today. Still complains of bilateral lower extremity pain. Patient is on cefepime and she is scheduled for dialysis today. 12/04: Some complaint of leg pain. Percocet given for pain control. Patient is very deconditioned, will need aggressive PT. Will work on d/c planning with cm. 12/05: Patient does not appear to be in distress this AM. tachycardic hr on encounter and overnight, was given diltiazem by blow molding machine tender. Cardiology initiated metoprolol and amiodorone on patient this morning. She denies any pain except for discomfort in left lower extremity. Controlled with percocet. She also states that she does not have any urine output and has been constipated. Will order bowel regimen. Discharge needs discussed with CM which include Lifevest, BIPAP for nightly use, and possible set up for dialysis. She was visiting on a visa to the from [place] however is technically a citizen of [place] which makes placement a continued challenge. 12/06: Case management reports patient will need LifeVest, walker, CPAP and arrangements for outpatient hemodialysis. However, patient is uninsured. I discussed with the daughter Eva plans for home hospice. Eva reports that she is willing to have hospice to obtain additional resources but is not wanting palliative care/comfort measures. 12/07: Awaiting LifeVest and outpatient HD arrangements. I d/w CM discharge planning. Pt still with heparin drip but amiodarone changed to p.o. 200mg BID. Cont. Metoprolol 50mg BID. Hold LAYO and ARB for renal fxn. Patient for outpatient ischemic evaluation per Cardiology. Leukocytosis likely related to retroperitoneal hematoma. ID wants to monitor off abx. 12/08: Awaiting LifeVest and outpatient HD arrangements. I d/w CM discharge planning. Pt still with heparin drip. Await cardiology recommendations to transition to p.o. anticoagulation. Patient for outpatient ischemic evaluation per Cardiology. Leukocytosis likely related to retroperitoneal hematoma. Continue to monitor off antibiotics. Continue volume management per nephrology with hemodialysis 12/09: Patient with PermCath placement today. Nephrology reports patient hypotensive during hemodialysis and started 10 mg of midodrine for hypotension. Losartan discontinued. Continue to obtain daily weights and Strict I/O's. Renally dose medications and avoid nephrotoxic agents. Patient for outpatient ischemic evaluation per Cardiology. Leukocytosis likely related to retroperitoneal hematoma. Continue to monitor off antibiotics. Awaiting LifeVest and outpatient HD arrangements. 12/10: Continue hemodialysis per nephrology recommendations. We will discontinue heparin drip and start Eliquis 5 mg p.o. twice daily for anticoagulation. Blood pressure appears to be improved. Continue midodrine. Continue to obtain daily weights and Strict I/O's. Renally dose medications and avoid nephrotoxic agents. Patient for outpatient ischemic evaluation per Cardiology. Leukocytosis likely related to retroperitoneal hematoma. Continue to monitor off antibiotics. Awaiting LifeVest and outpatient HD arrangements. 12/11: Cardiology plans for Lexiscan in a.m. Continue hemodialysis per nephrology recommendations. We will discontinue heparin drip and start Eliquis 5 mg p.o. twice daily for anticoagulation. Blood pressure appears to be improved. Continue midodrine. Continue to obtain daily weights and Strict I/O's. Renally dose medications and avoid nephrotoxic agents. 12/12: Lexiscan this morning per cardiology. Continue hemodialysis per nephrology recommendations. Continue Eliquis for anticoagulation. Continue midodrine. Continue to obtain daily weights and Strict I/O's. Renally dose medications and avoid nephrotoxic agents. 12/14; Lexiscan test yesterday was negative for ischemia, patient receiving physical therapy, hemodialysis DC planning per case management. Hospice placement, multiple social issues 3; received 1 unit PRBC transfusion as patient has anemia with hemoglobin of 6.9 follow H&H and transfuse additional PRBC as needed DC planning per case management ; patient had episode of rectal bleeding/melena this afternoon, patient received 1 unit PRBC yesterday for hemoglobin of 6.9 which improved to 8.2 Closely monitor H&H and transfuse additional PRBC as needed, GI consulted[discussed with Dr. Austyn Saleh] Hold Eliquis, I discussed in detail with the patient and her daughter about her recent benefits and consequences of holding Eliquis in the setting of DVT and A. fib due to severe bleeding, they verbalized understanding, patient does not have new episodes of bleeding we will resume Eliquis and closely monitor 12/17; patient did not have any new episodes of rectal bleeding, hemoglobin and hematocrit is stable, initially planning to discharge the patient home, however patient had hyperkalemia, nephrology scheduled for stat hemodialysis today, they wanted to closely monitor. Possible discharge in 1 to 2 days if cleared by nephrology. 12/18; patient's renal function is better today, no dialysis, hemoglobin above 8, hemodynamically stable Possible discharge tomorrow if patient is stable and cleared by nephrology 12/19; patient is being discharged home today, discussed with case management team, discussed with other consultants who cleared. Discussed with patient's daughter Ms. Eva Brown. 12/20; patient was discharged today however did not go till now, will continue current management DC planning per Case management 12/21; CM working on discharge plan, daughter did not show up to orange picker the patient, cont supportive care. 12/22; daughter stated that she will be available to receive the patient tomorrow morning, continue to follow clinically, clinical case manager working on discharge planning, patient medically stable for discharge. 12/23: clinically stable, patient is being discharged today with HH and 16/04 family care. Mx per problem list: --Acute kidney injury likely secondary to vasomotor nephropathy, hypernatremia On hemodialysis, patient received stat hemodialysis due to hyperkalemia Nephrology following, renal function better today, nephrology recommend daily monitoring renal function now stable --Rectal bleeding /resolved Patient is on Eliquis, will hold Eliquis closely monitor H&H, Consult GI, transfuse PRBC as needed GI Dr. Flores evaluated the patient, advised bowel regimen s/p cardiac arrest, collapse at jew, HFrEF, shock/hypotension resolved Atrial fibrillation/atrial flutter -Cardiac arrest and collapse at jew with ROSC -Cardiology consulted, appreciate recommendations - S/p Cardizem gtt- d/c due to low EF; now on PO Amio -s/p vasopressor support with levophed -Echocardiogram shows left ventricular systolic function severely decreased, LVEF 25 to 30%, no pericardial effusion -proBNP 5622 -Continue Lasix 20 mg twice daily, BB, spironolactone, losartan -No significant volume overload clinically Acute hypoxic respiratory failure, right pneumothorax, Angioedema (resolved), pulmonary edema -[facility] consulted, appreciate recommendations -Intubated on 10/29 and extubated on 11/11 -Bipap q HS and prn, at high risk for KOLBY with morbid obesity -NC during day -s/p right chest tube for pneumothorax -s/p steroids for angioedema -On Lasix for pulmonary edema. Transaminitis likely shocked liver - resolved Shock cardiogenicsuspected sepsis -Fever was as high as 102 with a leukocytosis Blood, urine and sputum cultures negative -COVID-19 PCR negative -S/p empiric antibiotic therapy for possible pneumonia with Rocephin and azithromycin () -S/p Levophed gtt for hypotension -Fever and leukocytosis resolved -Monitor WBC and temperature curve Acute Metabolic encephalopathy, agitation/anxiety -Etiology likely from a cardiac arrest, shock and cerebral hypoperfusion CT head no acute focal parenchymal lesion in the brain -Neurology consulted, appreciate recommendations -EEG and MRI noted, Neuro recommend to cut down on sedation as possible Mental status significantly improved, currently fairly alert and oriented. Answers appropriately. Acute DVT in the left posterior tibial vein and bilateral peroneal veins, Anemia, retroperitoneal bleed -D-dimer greater than 10,000 -CTA chest with no evidence of PE -Bilateral lower extremity ultrasound positive for DVT -Heparin gtt on hold d/t anemia, received PRBC x4 -vasuclar surgery consulted, appreciate recommendations -recommended multiphasic CT angio of the abdomen and pelvis with and without contrast if H/H drops and did not recommend IVC filter at this time as the DVTs are infrapopliteal and recommends a follow-up DVT study weekly for 2 weeks. Repeat venous duplex ultrasound on 11/21 showed progression of left peroneal DVT extending into popliteal vein. Vascular surgery completed IVC filter placement on 11/22. -Trend CBC -SCDs to BLE while in bed -Transfuse hemoglobin less than 7 -Monitor for signs of bleeding -Hemoglobin stable, 8.6 Hypertension, moderately controlled Increase losartan 200 mg daily and add hydralazine as needed. Hyperglycemia ,resolved) -Avoid hypoglycemia -Hbg A1C 6.7 -SSI and lantus q hs (titrate as needed) -Accu-Cheks q. 6h High risk for KOLBY, On nightly BiPAP Deconditioning PT/OT Disposition; home with and family care Disposition: HOME HEALTH CARE SERVICE Final Discharge Diagnosis (Prints w/discharge instructions): --Acute kidney injury likely secondary to vasomotor nephropathy, hypernatremia. --Rectal bleeding /resolved. --s/p cardiac arrest, collapse at jew, HFrEF, cardiogenic shock/hypotension resolved. --Atrial fibrillation/atrial flutter. -- Acute hypoxic respiratory failure, right pneumothorax, Angioedema (resolved), pulmonary edema. --Transaminitis likely shocked liver, resolved. --Acute Metabolic encephalopathy, agitation/anxiety. --Acute DVT in the left posterior tibial vein and bilateral peroneal veins, s/p IVC filter. --Anemia, retroperitoneal bleed, resolved. --Hypertension, moderately controlled. --Hyperglycemia ,resolved). --Deconditioning Time spent for discharge: 34 minutes Core Measure Documentation - Palliative Care Palliative Care/ Comfort Measures: Not Applicable - Core Measures Any of the following diagnoses?: none Exam - Physical Exam Narrative exam: General appearance: Present: no acute distress, well-nourished, obese (Morbidly obese), other (Minimally communicative) - EENT Eyes: Present: PERRL, EOM intact - Neck Neck: Present: supple, normal ROM - Respiratory Respiratory effort: normal Respiratory: bilateral: diminished, negative: rales, rhonchi, wheezing - Cardiovascular Rhythm: regular Heart Sounds: Present: S1 & S2 - Extremities Extremities: no ischemia, No edema - Abdominal General gastrointestinal: soft, non-tender, non-distended - Integumentary Integumentary: Present: clear, warm - Psychiatric Psychiatric: appropriate mood/affect, cooperative - Neurologic Neurologic: moves all extremities - Constitutional Vitals: Temp Pulse Resp BP Pulse Ox 98.7 F 92 H 20 136/86 98 12/23/21 07:49 12/23/21 07:49 12/23/21 07:49 12/23/21 07:49 12/23/21 07:49 Plan Activity: fall precautions Diet: low fat, low salt, diabetic Follow up with: BETHANY INMAN MD [Staff Physician] - 7 Days RUFINO MAYORGA MD [Staff Physician] - 7 Days KP DARDEN MD [Staff Physician] - 14 Days PRIMARY [facility]ARE, [Primary Care Provider] - 7 Days SHIRIN CUTLER MD [Staff Physician] - 14 Days Prescriptions: Melatonin [Melatonin 5MG TAB] 10 mg PO QHS PRN #10 tablet PRN Reason: Sleep Docusate Sodium [Colace CAP] 100 mg PO BID #30 capsule Amiodarone [Cordarone 200 MG TAB] 200 mg PO BID #60 tablet Apixaban [Eliquis] 5 mg PO Q12HR #60 tablet Gabapentin 100 mg PO Q8HR #60 capsule Metoprolol [Lopressor TAB] 100 mg PO BID #60 tablet Famotidine [Pepcid] 10 mg PO BID #30 tablet oxyCODONE /ACETAMINOPHEN [Percocet 5/325 mg] 1 tab PO Q4H PRN #20 tablet PRN Reason: Pain, Moderate (4-6) ALPRAZolam [Xanax TAB] 0.25 mg PO Q8H PRN #15 tablet PRN Reason: Anxiety
== END 2021-12-23 09:46 | disposition home health service (06) | DRG 870 ==
LOC: ED 13:43 → CC1 17:04 → IMCU 11-14 17:16 → 4A 11-19 12:39 → CC1 12-02 15:04 → 4A 12-03 14:47
PROVIDERS: ADMIT Internal Medicine; ATTEND Internal Medicine
PROC: 5A1955Z Respiratory Ventilation, Greater than 96 Consecutive Hours (ICD-10-PCS; principal; 2021-10-29)
PROC: 0BH17EZ Insertion of Endotracheal Airway into Trachea, Via Natural or Artificial Opening (ICD-10-PCS; 2021-10-29)
PROC: 05HM33Z Insertion of Infusion Device into Right Internal Jugular Vein, Percutaneous Approach (ICD-10-PCS; 2021-10-29)
PROC: B543ZZA Ultrasonography of Right Jugular Veins, Guidance (ICD-10-PCS; 2021-10-29)
PROC: 4A033R1 Measurement of Arterial Saturation, Peripheral, Percutaneous Approach (ICD-10-PCS; 2021-10-29)
PROC: 05HM33Z Insertion of Infusion Device into Right Internal Jugular Vein, Percutaneous Approach (ICD-10-PCS; 2021-10-30)
PROC: B543ZZA Ultrasonography of Right Jugular Veins, Guidance (ICD-10-PCS; 2021-10-30)
PROC: 0W9930Z Drainage of Right Pleural Cavity with Drainage Device, Percutaneous Approach (ICD-10-PCS; 2021-10-30)
PROC: 5A09557 Assistance with Respiratory Ventilation, Greater than 96 Consecutive Hours, Continuous Positive Airway Pressure (ICD-10-PCS; 2021-11-11)
PROC: 30233N1 Transfusion of Nonautologous Red Blood Cells into Peripheral Vein, Percutaneous Approach (ICD-10-PCS; 2021-11-12)
PROC: 06H03DZ Insertion of Intraluminal Device into Inferior Vena Cava, Percutaneous Approach (ICD-10-PCS; 2021-11-22)
PROC: 05HM33Z Insertion of Infusion Device into Right Internal Jugular Vein, Percutaneous Approach (ICD-10-PCS; 2021-11-22)
PROC: B543ZZA Ultrasonography of Right Jugular Veins, Guidance (ICD-10-PCS; 2021-11-22)
PROC: 5A1D70Z Performance of Urinary Filtration, Intermittent, Less than 6 Hours Per Day (ICD-10-PCS; 2021-12-01)
PROC: 02H633Z Insertion of Infusion Device into Right Atrium, Percutaneous Approach (ICD-10-PCS; 2021-12-01)
PROC: B548ZZA Ultrasonography of Superior Vena Cava, Guidance (ICD-10-PCS; 2021-12-01)
PROC: 5A1D70Z Performance of Urinary Filtration, Intermittent, Less than 6 Hours Per Day (ICD-10-PCS; 2021-12-02)
PROC: 5A1D70Z Performance of Urinary Filtration, Intermittent, Less than 6 Hours Per Day (ICD-10-PCS; 2021-12-03)
PROC: 5A1D70Z Performance of Urinary Filtration, Intermittent, Less than 6 Hours Per Day (ICD-10-PCS; 2021-12-05)
PROC: 5A1D70Z Performance of Urinary Filtration, Intermittent, Less than 6 Hours Per Day (ICD-10-PCS; 2021-12-07)
PROC: 5A1D70Z Performance of Urinary Filtration, Intermittent, Less than 6 Hours Per Day (ICD-10-PCS; 2021-12-09)
PROC: 0JH63XZ Insertion of Tunneled Vascular Access Device into Chest Subcutaneous Tissue and Fascia, Percutaneous Approach (ICD-10-PCS; 2021-12-09)
PROC: 02H633Z Insertion of Infusion Device into Right Atrium, Percutaneous Approach (ICD-10-PCS; 2021-12-09)
PROC: B548ZZA Ultrasonography of Superior Vena Cava, Guidance (ICD-10-PCS; 2021-12-09)
PROC: 5A1D70Z Performance of Urinary Filtration, Intermittent, Less than 6 Hours Per Day (ICD-10-PCS; 2021-12-12)
PROC: 5A1D70Z Performance of Urinary Filtration, Intermittent, Less than 6 Hours Per Day (ICD-10-PCS; 2021-12-15)
PROC: 5A1D70Z Performance of Urinary Filtration, Intermittent, Less than 6 Hours Per Day (ICD-10-PCS; 2021-12-17)
PROC: 0JPT3XZ Removal of Tunneled Vascular Access Device from Trunk Subcutaneous Tissue and Fascia, Percutaneous Approach (ICD-10-PCS; 2021-12-19)
DX: A41.9 Sepsis, unspecified organism (principal); G92.8 Other toxic encephalopathy; I46.9 Cardiac arrest, cause unspecified; K72.00 Acute and subacute hepatic failure without coma; J96.01 Acute respiratory failure with hypoxia; R65.21 Severe sepsis with septic shock; J69.0 Pneumonitis due to inhalation of food and vomit; N17.0 Acute kidney failure with tubular necrosis; K66.1 Hemoperitoneum; K63.1 Perforation of intestine (nontraumatic); G93.41 Metabolic encephalopathy; E46 Unspecified protein-calorie malnutrition; J93.9 Pneumothorax, unspecified; I82.403 Acute embolism and thrombosis of unspecified deep veins of lower extremity, bilateral; E87.1 Hypo-osmolality and hyponatremia; I50.20 Unspecified systolic (congestive) heart failure; E66.2 Morbid (severe) obesity with alveolar hypoventilation; E87.0 Hyperosmolality and hypernatremia; T78.3XXA Angioneurotic edema, initial encounter; E66.01 Morbid (severe) obesity due to excess calories; Z68.33 Body mass index [BMI] 33.0-33.9, adult; E87.6 Hypokalemia; R74.01 Elevation of levels of liver transaminase levels; I48.91 Unspecified atrial fibrillation; Z20.822 Contact with and (suspected) exposure to COVID-19; Z83.3 Family history of diabetes mellitus; Z82.49 Family history of ischemic heart disease and other diseases of the circulatory system; Z68.37 Body mass index [BMI] 37.0-37.9, adult; Y92.89 Other specified places as the place of occurrence of the external cause
CPT/HCPCS: 31500; 36415; 36430; 36556; 36558; 36600; 37191; 70450; 70551; 71045; 71275; 72125; 74018; 74174; 74176; 76770; 76856; 77001; 78452; 80048; 80053; 80061; 80074; 80076; 80307; 80320; 81001; 82140; 82565; 82570; 82728; 82803; 82962; 83036; 83615; 83735; 84100; 84132; 84145; 84156; 84300; 84443; 84484; 85007; 85014; 85018; 85025; 85027; 85049; 85379; 85520; 85610; 85730; 86140; 86850; 86900; 86901; 86920; 87040; 87070; 87086; 87205; 89050; 93005; 93010; 93017; 93306; 93970; 94003; 94640; 94644; 94660; 94760; 95819; G0378; J2354; J3490; J7060; J7121; J7517; J9280; Q0162; Q9967; A9502; C1750; C1752; C1769; C1880; C8929; G0480; J0282; J0456; J0610; J0690; J0692; J0696; J0885; J1200; J1630; J1644; J1650; J1815; J1885; J1940; J2060; J2250; J2270; J2310; J2704; J2785; J2920; J3010; J3370; J3475; J3480; J7030; J7040; J7050; J7070; J7120; P9016; P9047; U0003